=== PATIENT | female | born 1960 | race Caucasian/White ===

== ENCOUNTER 2017-03-21 14:32 | Inpatient (IN) | payer MEDICAID ==
[~2017-03-21] VITALS: Ht 160 cm; Wt 113.0 kg
--- OUTSIDE RECORDS SUMMARY | 2017-03-21 19:33 | XMS REPORT | Clinical Summary ---
Author Author Admin, MARGRET Organization [employer] Address Unknown Phone Unavailable Allergies, Adverse Reactions, Alerts Allergy Name Reaction Description Start Date Severity Status Provider VALENTIN Critical Active Rodrigo Montemayorl SPECIALTY THERAPIST CHLORHEXIDINE GLUCONATE tongue and gums swollen Critical Active Hoa Clarita RMA NORFLEX Rash Critical Active Silvestrellina Frazell SPECIALTY THERAPIST TRAZODONE HCL sees things Critical Active Dewayne PERAZA PENICILLIN rash Critical Active Dewayne PERAZA Conditions or Problems Problem Name Problem Code Onset Date Status Entry Date Provider Comment Standard Description Annotate FOOT PAIN, RIGHT 729.5 Resolved Yolande Lindsay MD PhD Pain in limb ANKLE PAIN, RIGHT 719.47 Resolved Yolande Lindsay MD PhD Pain in joint involving ankle and foot EDEMA, LIMB 782.3 Resolved Yolande Lindsay MD PhD Edema HYPERTENSION 401.1 Active Dewayne PERAZA Benign essential hypertension HYPERLIPIDEMIA 272.4 Active Yolande Lindsay MD PhD Other and unspecified hyperlipidemia ABDOMINAL PAIN 789.00 Resolved Yolande Lindsay MD PhD Abdominal pain, unspecified site PLANTAR FASCIITIS 728.71 Resolved Yolande Lindsay MD PhD Plantar fascial fibromatosis UTI 599.0 Resolved Yolande Lindsay MD PhD Urinary tract infection, site not specified OTHER SCREENING MAMMOGRAM V76.12 Inactive Yolande Lindsay MD PhD Other screening mammogram KNEE PAIN 719.46 Resolved Yolande Lindsay MD PhD Pain in joint involving lower leg ALLERGIC REACTION, ACUTE 995.3 Resolved Alexis Ordaz MD Allergy, unspecified, not elsewhere classified GERD 530.81 Resolved Todd Callaway MD Esophageal reflux BACK PAIN 724.5 Resolved Yolande Lindsay MD PhD Backache, unspecified AFTERCARE FOLLOW SURGERY MUSCULOSKEL SYSTEM NEC V58.78 Resolved Todd Callaway MD Aftercare following surgery of the musculoskeletal system, NEC FREQUENCY, URINARY 788.41 Resolved Yolande Lindsay MD PhD Urinary frequency ALLERGIC RHINITIS 477.9 Active Rodrigo Sarah APRN Allergic rhinitis, cause unspecified AFTERCARE FLW SURG TEETH ORL CAV&DIGESTV SYS NEC V58.75 Resolved Yolande Lindsay MD PhD Aftercare following surgery of the teeth, oral cavity and digestive system, NEC LONG-TERM (CURRENT) USE OF OTHER MEDICATIONS V58.69 Resolved Yolande Lindsay MD PhD Long-term (current) use of other medications ROUTINE GYNECOLOGICAL EXAMINATION V72.31 Resolved Yolande Lindsay MD PhD Routine gynecological examination HYPOTHYROIDISM 244.9 Active Rodrigo Sarah APRN Unspecified hypothyroidism MUSCLE PAIN 729.1 Resolved Yolande Lindsay MD PhD Myalgia and myositis, unspecified FISSURE, ANAL 565.0 Resolved Yolande Lindsay MD PhD Anal fissure CHEST PAIN, UNSPECIFIED 786.50 Resolved Yolande Lindsay MD PhD Unspecified chest pain HEADACHE 784.0 Resolved Yolande Lindsay MD PhD Headache SPONDYLOLISTHESIS 756.12 Active Yolande Lindsay MD PhD Spondylolisthesis, congenital OTHER DISORDER OF COCCYX 724.79 Inactive Yolande Lindsay MD PhD Other disorders of coccyx ABDOMINAL PAIN, EPIGASTRIC 789.06 Resolved Yolande Lindsay MD PhD Abdominal pain, epigastric DYSPHAGIA UNSPECIFIED 787.20 Resolved Yolande Lindsya MD PhD Dysphagia, unspecified ABDOMINAL PAIN, LEFT LOWER QUADRANT 789.04 Resolved Yolande Lindsay MD PhD Abdominal pain, left lower quadrant HEMATOCHEZIA 578.1 Resolved Yolande Lindsay MD PhD Blood in stool HEMORRHOIDS, INTERNAL, WITH BLEEDING 455.2 Resolved Yolande Lindsay MD PhD Internal hemorrhoids with other complication POISON KUNAL DERMATITIS 692.6 Resolved Yolande Lindsay MD PhD Contact dermatitis and other eczema due to plants [except food] ANGIOEDEMA 995.1 Resolved Yolande Lindsay MD PhD Angioneurotic edema, not elsewhere classified GERD 530.81 Resolved Yolande Lindsay MD PhD Esophageal reflux RECTAL BLEEDING 569.3 Resolved Yolande Lindsay MD PhD Hemorrhage of rectum and anus INGROWN TOENAIL 703.0 Resolved Yolande Lindsay MD PhD Ingrowing nail INGROWN TOENAIL 703.0 Resolved Yolande Lindsay MD PhD Ingrowing nail Hip pain, left 719.45 Resolved Yolande Lindsay MD PhD Pain in joint involving pelvic region and thigh Sinusitis, maxillary, acute 461.0 Resolved Yolande Lindsay MD PhD Acute maxillary sinusitis Sinusitis 461.9 Resolved Yolande Lindsay MD PhD Acute sinusitis, unspecified Pallor 782.61 Resolved Yolande Lindsay MD PhD Pallor Flank pain, left 789.09 Resolved Yolande Lindsay MD PhD Abdominal pain, other specified site; multiple sites Bladder Prolapse 596.9 Active Jared Og MD Unspecified disorder of bladder STRESS INCONTINENCE 788.39 Active Jared Og MD Other urinary incontinence Rectocele 618.04 Active Jared Og MD Rectocele Hematuria 599.70 Resolved Yolande Lindsay MD PhD Hematuria, unspecified Health maintenance exam V70.0 Active Yolande Lindsay MD PhD Routine general medical examination at a health care facility Ankle pain, right 719.47 Resolved Yolande Lindsay MD PhD Pain in joint involving ankle and foot Foot pain, right 729.5 Resolved Yolande Lindsay MD PhD Pain in limb Tick bite 989.5 Resolved Yolande Lindsay MD PhD Toxic effect of venom URI 465.9 Resolved Yolande Lindsay MD PhD Acute upper respiratory infections of unspecified site Mycoplasma pneumonia 483.0 Resolved Yolande Lindsay MD PhD Pneumonia due to Mycoplasma pneumoniae Sexual dysfunction 302.70 Active Jared Og MD Psychosexual dysfunction, unspecified Muscle spasm, back 724.8 Resolved Yolande Lindsay MD PhD Other symptoms referable to back Obesity 278.00 Active Yolande Lindsay MD PhD Obesity, unspecified Sinusitis, acute 461.9 Resolved Yolande Lindsay MD PhD Acute sinusitis, unspecified Asthma 493.90 Active Erum Elder Asthma, unspecified Flank pain 789.09 Resolved Yolande Lindsay MD PhD Abdominal pain, other specified site; multiple sites Sinusitis 461.9 Resolved Yolande Lindsay MD PhD Acute sinusitis, unspecified Abdominal pain, LLQ 789.04 Resolved Yolande Lindsay MD PhD Abdominal pain, left lower quadrant Accidental fall E888.9 Resolved Yolande Lindsay MD PhD Unspecified fall Knee sprain, left 844.9 Resolved Yolande Lindsay MD PhD Sprain of unspecified site of knee and leg Ankle sprain, left 845.00 Resolved Yolande Lindsay MD PhD Unspecified site of ankle sprain Hip pain, left 719.45 Resolved Yolande Lindsay MD PhD Pain in joint involving pelvic region and thigh Palpitations 785.1 Active Yolande Lindsay MD PhD Palpitations 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 Erum Sykes 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 Myocardial infarction, hx of 412 Active Hoa Otto [facility] Old myocardial infarction Pelvic pain 789.09 Active Yolande Lindsay MD PhD Abdominal pain, other specified site; multiple sites Edema 782.3 Active Yolande Lindsay MD PhD Edema Rash 782.1 Active Yolande Lindsay MD PhD Rash and other nonspecific skin eruption Back pain, lumbar 724.2 Active Gab Padron MD Lumbago Cough 786.2 Active Jillina Tyrel SPECIALTY THERAPIST Cough 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 Jillina Frazellilian SPECIALTY THERAPIST 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 Anemia 285.9 Active Gab Padron MD Anemia, unspecified Conjunctivitis 372.30 Active Jillina Tyrel SPECIALTY THERAPIST Conjunctivitis, unspecified Sinusitis 473.9 Active Jillina Frazell SPECIALTY THERAPIST Unspecified sinusitis (chronic) Nonspecific syndrome suggestive of viral illness 079.99 Active Rodrigo Sarah SPECIALTY THERAPIST Unspecified viral infection Laryngitis 464.00 Active Jillina Tyrel SPECIALTY THERAPIST Acute laryngitis without mention of obstruction Abdominal pain 789.00 Active Gab Padron MD Abdominal pain, unspecified site Chest discomfort 786.59 Active Gab Padron MD Other chest pain Cellulitis, leg, right 682.6 Active Gab Padron MD Cellulitis and abscess of leg, except foot Insect bite, infected 919.5 Active Gab Padron MD Insect bite, nonvenomous, of other, multiple, and unspecified sites, infected Renal insufficiency, mild 585.2 Active Gab Padron MD Chronic kidney disease, Stage II (mild) 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 Gab Padron MD Other and unspecified factitious illness Flank pain, left 789.09 Active Rodrigo Sarah APRN Abdominal pain, other specified site; multiple sites Abdominal pain, generalized 789.07 Active Rodrigo aSrah APRN Abdominal pain, generalized Back pain, thoracic region, left 724.1 Active Silvestrellina Siml DAIN Pain in thoracic spine Abdominal pain, left lower quadrant 789.04 Active Gab Padron MD Abdominal pain, left lower quadrant Slowing of urinary stream 788.62 Active Gab Padron MD Slowing of urinary stream Interstitial cystitis 595.1 Active Gab Padron MD Chronic interstitial cystitis ANKLE PAIN, RIGHT ICD-719.47 Inactive Yolande Lindsay MD PhD EDEMA, LIMB ICD-782.3 Inactive Yolande Lindsay MD PhD ABDOMINAL PAIN ICD-789.00 Inactive Yolande Lindsay MD PhD PLANTAR FASCIITIS ICD-728.71 Inactive Yolande Lindsay MD PhD UTI ICD-599.0 Inactive Yolande Lindsay MD PhD OTHER SCREENING MAMMOGRAM ICD-V76.12 Inactive Yolande Lindsay MD PhD FOOT PAIN, RIGHT ICD-729.5 Inactive Yolande Lindsay MD PhD ALLERGIC REACTION, ACUTE ICD-995.3 Inactive Alexis Ordaz MD BACK PAIN ICD-724.5 Inactive Yolande Lindsay MD PhD AFTERCARE FOLLOW SURGERY MUSCULOSKEL SYSTEM NEC ICD-V58.78 02/06 Inactive Todd Callaway MD FREQUENCY, URINARY ICD-788.41 Inactive Yolande Lindsay MD PhD AFTERCARE FLW SURG TEETH ORL CAV&DIGESTV SYS NEC ICD-V58.75 04/25 Inactive Yolande Lindsay MD PhD KNEE PAIN ICD-719.46 Inactive Yolande Lindsay MD PhD ROUTINE GYNECOLOGICAL EXAMINATION ICD-V72.31 Inactive Yolande Lindsay MD PhD MUSCLE PAIN ICD-729.1 Inactive Yolande Lindsay MD PhD FISSURE, ANAL ICD-565.0 Inactive Yolande Lindsay MD PhD CHEST PAIN, UNSPECIFIED ICD-786.50 Inactive Yolande Lindsay MD PhD HEADACHE ICD-784.0 Inactive Yolande Lindsay MD PhD GERD ICD-530.81 Inactive Todd Callaway MD LONG-TERM (CURRENT) USE OF OTHER MEDICATIONS ICD-V58.69 Inactive Yolande Lindsay MD PhD OTHER DISORDER OF COCCYX ICD-724.79 Inactive Yolande Lindsay MD PhD ABDOMINAL PAIN, LEFT LOWER QUADRANT ICD-789.04 Inactive Yolande Lindsay MD PhD HEMATOCHEZIA ICD-578.1 Inactive Yolande Lindsay MD PhD HEMORRHOIDS, INTERNAL, WITH BLEEDING ICD-455.2 Inactive Yolande Lindsay MD PhD POISON KUNAL DERMATITIS ICD-692.6 Inactive Yolande Lindsay MD PhD ANGIOEDEMA ICD-995.1 Inactive Yolande Lindsay MD PhD GERD ICD-530.81 Inactive Yolande Lindsay MD PhD 07/16 RECTAL BLEEDING ICD-569.3 Inactive Yolande Lindsay MD PhD INGROWN TOENAIL ICD-703.0 Inactive Yolande Lindsay MD PhD INGROWN TOENAIL ICD-703.0 Inactive Yolande Lindsay MD PhD Hip pain, left ICD-719.45 Inactive Yolande Lindsay MD PhD Sinusitis, maxillary, acute ICD-461.0 Inactive Yolande Lindsay MD PhD Sinusitis ICD-461.9 Inactive Yolande Lindsay MD PhD Pallor ICD-782.61 Inactive Yolande Lindsay MD PhD 2013 Flank pain, left ICD-789.09 Inactive Yolande Lindsay MD PhD ABDOMINAL PAIN, EPIGASTRIC ICD-789.06 Inactive Yoalnde Lindsay MD PhD DYSPHAGIA UNSPECIFIED ICD-787.20 Inactive Yolande Lindsay MD PhD Foot pain, right ICD-729.5 Inactive Yolande Lindsay MD PhD Hematuria ICD-599.70 Inactive Yolande Lindsay MD PhD Ankle pain, right ICD-719.47 Inactive Yolande Lindsay MD PhD Tick bite ICD-989.5 Inactive Yolande Lindsay MD PhD 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 Inactive Yolande Lindsay MD PhD URI ICD-465.9 Inactive Yolande Lindsay MD PhD Flank pain ICD-789.09 Inactive Yolande Lindsay MD PhD Sinusitis ICD-461.9 Inactive Yolande Lindsay MD PhD Abdominal pain, LLQ ICD-789.04 Inactive Yolande Lindsay MD PhD Accidental fall ICD-E888.9 Inactive Yolande Lindsay MD PhD Knee sprain, left ICD-844.9 Inactive Yolande Lindsay MD PhD Ankle sprain, left ICD-845.00 Inactive Yolande Lindsay MD PhD Hip pain, left ICD-719.45 Inactive Yolande Lindsay MD PhD Muscle spasm, back ICD-724.8 Inactive Yolande Lindsay MD PhD Sinusitis, acute ICD-461.9 Inactive Yolande Lindsay MD PhD Medication List Medication Instructions Start Date Stop Date Generic Name NDC Status Provider Patient Instruction ZOFRAN ODT 4 MG TBDP 1 po q6hr PRN Nausea ONDANSETRON 62422877664 Active Jillina Frahossein ZAPATAN Active IBUPROFEN 600 MG TAB 1 tablet by mouth every 6 hours for 7 days, then 1 tablet every 6 hours as needed. Take with food IBUPROFEN 70229940336 Active Jillina Fracharlottel SPECIALTY THERAPIST Active BACTRIM DS 800-160 MG TAB 1 tab by mouth twice daily TRIMETHOPRIM-SULFAMETHOXAZOLE 06924719215 No Longer Active Gab Padron MD Active ADVAIR DISKUS 250-50 MCG/DOSE AEPB 1 puff BID FLUTICASONE- SALMETEROL 45708566863 Active Silvestrellina Tyrel ZAPATAN Active LEVOTHYROXINE SODIUM 75 MCG TABS Take 1 tab daily LEVOTHYROXINE SODIUM 14259406645 No Longer Active Mariana FLEMING Active SYNTHROID 88 MCG ORAL TABS Take one by mouth daily LEVOTHYROXINE SODIUM 20173638041 Active Mariana HICKEYA Active CHERATUSSIN AC 100-10 MG/5ML SYRP 1 tsp by mouth every 4 hours as needed for cough GUAIFENESIN-CODEINE 51639363244 No Longer Active Gab Padron MD Active POLYTRIM 72412-5.1 UNIT/ML-% SOLN 1 gtt to affected eye q3h x 7 days POLYMYXIN B-TRIMETHOPRIM 86189034099 No Longer Active Gab Padron MD Active FLUTICASONE PROPIONATE 50 MCG/ACT SUSP 1 to 2 sprays each nostril daily 04/21 FLUTICASONE PROPIONATE 82187196460 No Longer Active Gab Padron MD Active TRILEPTAL 600 MG TABS Take one 1 tablet in Am and 1 tablet at night OXCARBAZEPINE 64133217684 Active Gab Padron MD Active CEFDINIR 300 MG CAPS 1 po BID x 10 days CEFDINIR 34516922824 No Longer Active Rowenaina Tyrel ZAPATAN Active CEFTIN 500 MG TAB 1 twice a day CEFUROXIME AXETIL 15669366449 No Longer Active Gab Padron MD Active AZITHROMYCIN 250 MG TABS 2 po qd x 1 day, then 1 po qd x 4 days AZITHROMYCIN 35386824926 No Longer Active Rodrigo Sarah APRN Active CLARITIN 10 MG TAB 1 tablet by mouth daily as needed for allergies LORATADINE 79705824223 Active Jillina Frazell SPECIALTY THERAPIST Active OXYCODONE HCL 5 MG ORAL CAPS 1 TAB PO Q HS OXYCODONE HCL 46011355207 No Longer Active Rodrigo Sarah APRN Active NIASPAN 500 MG ORAL CR-TABS 1 pill nightly x 1 week, then 2 pills nightly x 1 week, then 3 pills nightly x 1 week, then 4 pills nightly NIACIN (ANTIHYPERLIPIDEMIC) 89383875763 No Longer Active Silvestrellina Fracharlottel SPECIALTY THERAPIST Active NIACIN 500 MG TABS 1 pill by mouth nightly x 1 week, then 2 pills x 1 week, then 3 pills x 1 week, then 4 pills nightly - take after evening meal, with applesauce or an apple NIACIN 94051725864 No Longer Active Yolande Lindsay MD PhD Active FISH OIL 1000 MG CAPS 3 pills daily OMEGA-3 FATTY ACIDS 87712421785 Active Yolande Lindsay MD PhD Active TRIAMCINOLONE ACETONIDE 0.1 % CREA apply bid sparingly to rash TRIAMCINOLONE ACETONIDE 77535627434 Active Yolande Lindsay MD PhD Active FUROSEMIDE 20 MG TAB 1 tablet by mouth daily FUROSEMIDE 63261754727 Active Tisha Lambert SPECIALTY THERAPIST Active LISINOPRIL 20 MG ORAL TABS 1 tab by mouth daily LISINOPRIL 80723163609 Active Gab Padron MD Active FUROSEMIDE 20 MG TABS 1 pill by mouth daily, for edema FUROSEMIDE 60634813265 No Longer Active Yolande Lindsay MD PhD Active ATORVASTATIN CALCIUM 10 MG TABS 1 pill by mouth daily, for cholesterol 09/06 ATORVASTATIN CALCIUM 33449743203 Active Gab Padron MD Active CALCIUM 600+D PLUS MINERALS 600-400 MG-UNIT ORAL CHEW 1 tab by mouth daily CALCIUM CARBONATE-VIT D-MIN 86923293677 No Longer Active Yolande Lindsay MD PhD Active CYCLOBENZAPRINE HCL 10 MG TABS 1 tablet by mouth three times daily as needed for muscle spasm/pain CYCLOBENZAPRINE HCL 96138284813 Active Yolande Lindsay MD PhD Active ONDANSETRON 4 MG TBDP 1 q4h PRN nausea ONDANSETRON 13791300557 Active Yolande Lindsay MD PhD Active ADULT ASPIRIN EC LOW STRENGTH 81 MG TBEC Take 1 tablet by mouth daily 2014 ASPIRIN 72377456729 No Longer Active Yoalnde Lindsay MD PhD Active ZOFRAN ODT 4 MG TBDP 1 pill dissolved by mouth every 4 hours if needed for nausea ONDANSETRON 99846302932 No Longer Active Yolande Lindsay MD PhD Active CEFTIN 500 MG TAB 1 twice a day CEFUROXIME AXETIL 11042191283 No Longer Active Yolande Lindsay MD PhD Active ALBUTEROL SULFATE 0.083 % NEBU SOLN one vial per nebulizer every 4-6 hours as needed ALBUTEROL SULFATE 07624782334 No Longer Active Alexis Ordaz MD Active DOXYCYCLINE HYCLATE 100 MG CAP 1 cap by mouth twice daily DOXYCYCLINE HYCLATE 68199062144 No Longer Active Yolande Lindsay MD PhD Active CYCLOBENZAPRINE HCL 10 MG TABS 1/2 - 1 tab by mouth three times daily if needed for spasms/pain CYCLOBENZAPRINE HCL 97425876040 No Longer Active Yolande Lindsay MD PhD Active AZITHROMYCIN 250 MG TABS 2 pills on day 1, then 1 pill daily x 4 days AZITHROMYCIN 28846594319 No Longer Active Yolande Lindsay MD PhD Active XOPENEX 1.25 MG/3ML NEBU 1 neb every 4 hours if needed for cough/congestion LEVALBUTEROL HCL 02368682324 No Longer Active Yolande Lindsay MD PhD Active DOXYCYCLINE HYCLATE 100 MG TAB 1 tab twice a day for 14 days 2013 DOXYCYCLINE HYCLATE 17418497086 No Longer Active Yolande Lindsay MD PhD Active PREVACID 30 MG CPDR Take 1 tablet by mouth daily-PRN LANSOPRAZOLE 88308674056 No Longer Active Yolande Lindsay MD PhD Active PA VITAMIN D-3 2000 UNIT CAPS 1 CAP PO DAILY CHOLECALCIFEROL 82619460148 No Longer Active Yolande Lindsay MD PhD Active CEFDINIR 300 MG CAPS by mouth twice a day CEFDINIR 72852059963 No Longer Active Gab Padron MD Active TOPAMAX 50 MG TABS 1 PO twice daily TOPIRAMATE 94639801190 Active Yolande Lindsay MD PhD Active AZITHROMYCIN 250 MG TABS 2 po qd x 1 day, then 1 po qd x 4 days AZITHROMYCIN 92350887628 No Longer Active Yolande Lindsay MD PhD Active DICLOFENAC SODIUM 75 MG TBEC 1 tablet by q 12 hours PRN headaches DICLOFENAC SODIUM 83073850346 No Longer Active Yolande Lindsay MD PhD Active FLONASE 50 MCG/ACT SUSP 1 spray each nostril am and hs FLUTICASONE PROPIONATE 87508254549 No Longer Active Todd Callaway MD Active ANUSOL-HC 25 MG SUPPOSITORY 1 rectally twice a day as needed for hemorrhoids HYDROCORTISONE JAYDEN (RECTAL) 70331500708 No Longer Active Yolande Lindsay MD PhD Active ANUSOL-HC 25 MG SUPPOSITORY 1 suppository rectally each evening as needed for anal fissure HYDROCORTISONE JAYDEN (RECTAL) 10883817951 No Longer Active LONNIE Iglesias Active VALIUM 5 MG TAB 1 po 30 minutes prior to your MRI DIAZEPAM 04454845284 No Longer Active LONNIE Iglesias Active METHOCARBAMOL 750 MG TABS 1 PO QID PRN METHOCARBAMOL 55085781321 No Longer Active Daphne Wetzel APRN Active NITROSTAT 0.4 MG SUBL as directed NITROGLYCERIN 29414412785 No Longer Active Rodrigo Sarah APRN Active ROBAXIN-750 750 MG TABS 2 four times a day for 3 days as needed for muscle spasm, then 1 four times a day as needed METHOCARBAMOL 60965185737 No Longer Active Rodrigo Sarah APRN Active HYDROCODONE-ACETAMINOPHEN 5-325 MG TABS 1 q 4-6 hrs prn HYDROCODONE-ACETAMINOPHEN 99141089652 No Longer Active Rodrigo Sarah APRN Active VERAPAMIL HCL CR 180 MG CR-TABS TAKE 1 TAB DAILY VERAPAMIL HCL 92195480482 No Longer Active Yolande Lindsay MD PhD Active BACTRIM DS 800-160 MG TAB 1 tab by mouth twice daily TRIMETHOPRIM-SULFAMETHOXAZOLE 73451845212 No Longer Active Yolande Lindsay MD PhD Active NEXIUM 40 MG PACK 1 by mouth daily ESOMEPRAZOLE MAGNESIUM 29714692124 No Longer Active Des Hines MD Active EPIPEN 2-CHARLETTE 0.3 MG/0.3ML OMARI as need for allergic reaction EPINEPHRINE 85853605833 Active Yolande Lindsay MD PhD Active NEXIUM 40 MG CPDR 1 PO Q D DAY ESOMEPRAZOLE MAGNESIUM 08275596610 No Longer Active Sadia Perry RN Active NEXIUM 40 MG PACK 1 by mouth daily NEXIUM 40 MG PACK ESOMEPRAZOLE MAGNESIUM Inactive VERAPAMIL HCL CR 180 MG CR-TABS TAKE 1 TAB DAILY VERAPAMIL HCL CR 180 MG CR-TABS VERAPAMIL HCL Inactive HYDROCODONE-ACETAMINOPHEN 5-325 MG TABS 1 q 4-6 hrs prn HYDROCODONE-ACETAMINOPHEN 5-325 MG TABS 423040 HYDROCODONE-ACETAMINOPHEN Inactive ROBAXIN-750 750 MG TABS 2 four times a day for 3 days as needed for muscle spasm, then 1 four times a day as needed ROBAXIN-750 750 MG TABS 485724 METHOCARBAMOL Inactive NITROSTAT 0.4 MG SUBL as directed NITROSTAT 0.4 MG SUBL NITROGLYCERIN Inactive METHOCARBAMOL 750 MG TABS 1 PO QID PRN METHOCARBAMOL 750 MG TABS 023773 METHOCARBAMOL Inactive VALIUM 5 MG TAB 1 po 30 minutes prior to your MRI VALIUM 5 MG TAB 885698 DIAZEPAM Inactive ANUSOL-HC 25 MG SUPPOSITORY 1 suppository rectally each evening as needed for anal fissure ANUSOL-HC 25 MG SUPPOSITORY 9141543 HYDROCORTISONE JAYDEN (RECTAL) Inactive ANUSOL-HC 25 MG SUPPOSITORY 1 rectally twice a day as needed for hemorrhoids ANUSOL-HC 25 MG SUPPOSITORY 0275960 HYDROCORTISONE JAYDEN (RECTAL) Inactive FLONASE 50 MCG/ACT SUSP 1 spray each nostril am and hs FLONASE 50 MCG/ACT SUSP FLUTICASONE PROPIONATE Inactive DICLOFENAC SODIUM 75 MG TBEC 1 tablet by q 12 hours PRN headaches DICLOFENAC SODIUM 75 MG TBEC 509050 DICLOFENAC SODIUM Inactive PA VITAMIN D-3 2000 UNIT CAPS 1 CAP PO DAILY PA VITAMIN D-3 2000 UNIT CAPS CHOLECALCIFEROL Inactive PREVACID 30 MG CPDR Take 1 tablet by mouth daily-PRN PREVACID 30 MG CPDR 322164 LANSOPRAZOLE Inactive DOXYCYCLINE HYCLATE 100 MG TAB 1 tab twice a day for 14 days 2013 DOXYCYCLINE HYCLATE 100 MG TAB 5646711 DOXYCYCLINE HYCLATE Inactive XOPENEX 1.25 MG/3ML NEBU 1 neb every 4 hours if needed for cough/congestion XOPENEX 1.25 MG/3ML NEBU 947320 LEVALBUTEROL HCL Inactive CYCLOBENZAPRINE HCL 10 MG TABS 1/2 - 1 tab by mouth three times daily if needed for spasms/pain CYCLOBENZAPRINE HCL 10 MG TABS 196920 CYCLOBENZAPRINE HCL Inactive ALBUTEROL SULFATE 0.083 % NEBU SOLN one vial per nebulizer every 4-6 hours as needed ALBUTEROL SULFATE 0.083 % NEBU SOLN 596423 ALBUTEROL SULFATE Inactive CEFTIN 500 MG TAB 1 twice a day CEFTIN 500 MG TAB 599623 CEFUROXIME AXETIL Inactive ZOFRAN ODT 4 MG TBDP 1 pill dissolved by mouth every 4 hours if needed for nausea ZOFRAN ODT 4 MG TBDP 065897 ONDANSETRON Inactive ADULT ASPIRIN EC LOW STRENGTH 81 MG TBEC Take 1 tablet by mouth daily 2014 ADULT ASPIRIN EC LOW STRENGTH 81 MG TBEC 432755 ASPIRIN Inactive CALCIUM 600+D PLUS MINERALS 600-400 MG-UNIT ORAL CHEW 1 tab by mouth daily CALCIUM 600+D PLUS MINERALS 600-400 MG-UNIT ORAL CHEW CALCIUM CARBONATE-VIT D-MIN Inactive NIACIN 500 MG TABS 1 pill by mouth nightly x 1 week, then 2 pills x 1 week, then 3 pills x 1 week, then 4 pills nightly - take after evening meal, with applesauce or an apple NIACIN 500 MG TABS 266327 NIACIN Inactive NIASPAN 500 MG ORAL CR-TABS 1 pill nightly x 1 week, then 2 pills nightly x 1 week, then 3 pills nightly x 1 week, then 4 pills nightly NIASPAN 500 MG ORAL CR-TABS NIACIN (ANTIHYPERLIPIDEMIC) Inactive OXYCODONE HCL 5 MG ORAL CAPS 1 TAB PO Q HS OXYCODONE HCL 5 MG ORAL CAPS 7027846 OXYCODONE HCL Inactive FLUTICASONE PROPIONATE 50 MCG/ACT SUSP 1 to 2 sprays each nostril daily 04/21 FLUTICASONE PROPIONATE 50 MCG/ACT SUSP 296760 FLUTICASONE PROPIONATE Inactive POLYTRIM 84070-3.1 UNIT/ML-% SOLN 1 gtt to affected eye q3h x 7 days POLYTRIM 46509-9.1 UNIT/ML-% SOLN 182959 POLYMYXIN B- TRIMETHOPRIM Inactive CHERATUSSIN AC 100-10 MG/5ML SYRP 1 tsp by mouth every 4 hours as needed for cough CHERATUSSIN AC 100-10 MG/5ML SYRP 228844 GUAIFENESIN-CODEINE Inactive LEVOTHYROXINE SODIUM 75 MCG TABS Take 1 tab daily LEVOTHYROXINE SODIUM 75 MCG TABS 810146 LEVOTHYROXINE SODIUM Inactive BACTRIM DS 800-160 MG TAB 1 tab by mouth twice daily BACTRIM DS 800-160 MG TAB 454379 TRIMETHOPRIM-SULFAMETHOXAZOLE Inactive AZITHROMYCIN 250 MG TABS 2 po qd x 1 day, then 1 po qd x 4 days AZITHROMYCIN 250 MG TABS 0215823 AZITHROMYCIN Inactive CEFDINIR 300 MG CAPS by mouth twice a day CEFDINIR 300 MG CAPS 520925 CEFDINIR Inactive AZITHROMYCIN 250 MG TABS 2 pills on day 1, then 1 pill daily x 4 days AZITHROMYCIN 250 MG TABS 0648749 AZITHROMYCIN Inactive DOXYCYCLINE HYCLATE 100 MG CAP 1 cap by mouth twice daily DOXYCYCLINE HYCLATE 100 MG CAP 6294638 DOXYCYCLINE HYCLATE Inactive FUROSEMIDE 20 MG TABS 1 pill by mouth daily, for edema FUROSEMIDE 20 MG TABS 485514 FUROSEMIDE Inactive AZITHROMYCIN 250 MG TABS 2 po qd x 1 day, then 1 po qd x 4 days AZITHROMYCIN 250 MG TABS 4642446 AZITHROMYCIN Inactive CEFTIN 500 MG TAB 1 twice a day CEFTIN 500 MG TAB 060280 CEFUROXIME AXETIL Inactive CEFDINIR 300 MG CAPS 1 po BID x 10 days CEFDINIR 300 MG CAPS 813011 CEFDINIR Inactive BACTRIM DS 800-160 MG TAB 1 tab by mouth twice daily BACTRIM DS 800-160 MG TAB 664559 TRIMETHOPRIM-SULFAMETHOXAZOLE Inactive Immunizations Vaccine Administration Date Value Standard Description Seasonal influenza vaccine, injectable, containing preservative, for > 3 years old (Afluria, FluLaval, Fluzone, Fluvirin, Fluarix, Agriflu(>=18 yo)) Fluzone (>3 yrs.) [[id number]] Influenza, seasonal, injectable influenza immunization (Flu Vax) has been administered Influenza - Unspecified Formulation [CVX88] influenza virus vaccine, unspecified formulation Seasonal influenza vaccine, injectable, containing preservative, for > 3 years old (Afluria, FluLaval, Fluzone, Fluvirin, Fluarix, Agriflu(>=18 yo)) Fluzone (>3 yrs.) [[id number]] Influenza, seasonal, injectable pneumococcal immunization administered Pneumovax 23 [CVX33] pneumococcal polysaccharide vaccine, 23 valent dT (Diphtheria and Tetanus) booster given given Td(adult) unspecified formulation Boostrix (Tetanus toxoid, reduced diphtheria toxoid and acellular pertussis vaccine, adsorbed), booster Boostrix [[id number]] tetanus toxoid, reduced diphtheria toxoid, and acellular pertussis vaccine, adsorbed Vital Signs Date Name Value Unit Range Description blood pressure, diastolic - 8462-4 75 mm[Hg] BP weldon blood pressure, systolic - 8480-6 130 mm[Hg] BP sys pulse rate E&M - 8867-4 72 /min Heart rate temperature E&M 98.5 [degF] Body temperature weight E&M - 3141-9 243 [lb_av] Weight Measured blood pressure, diastolic - 8462-4 71 mm[Hg] BP weldon blood pressure, systolic - 8480-6 136 mm[Hg] BP sys pulse rate E&M - 8867-4 61 /min Heart rate temperature E&M 98.2 [degF] Body temperature weight E&M - 3141-9 242 [lb_av] Weight Measured blood pressure, diastolic - 8462-4 75 mm[Hg] BP weldon blood pressure, systolic - 8480-6 121 mm[Hg] BP sys pulse rate E&M - 8867-4 77 /min Heart rate temperature E&M 98.8 [degF] Body temperature weight E&M - 3141-9 244 [lb_av] Weight Measured blood pressure, diastolic - 8462-4 78 mm[Hg] BP weldon blood pressure, systolic - 8480-6 154 mm[Hg] BP sys pulse rate E&M - 8867-4 65 /min Heart rate temperature E&M 98.8 [degF] Body temperature weight E&M - 3141-9 243.5 [lb_av] Weight Measured blood pressure, diastolic - 8462-4 59 mm[Hg] BP weldon blood pressure, systolic - 8480-6 128 mm[Hg] BP sys pulse rate E&M - 8867-4 67 /min Heart rate temperature E&M 97.3 [degF] Body temperature weight E&M - 3141-9 238.5 [lb_av] Weight Measured blood pressure, diastolic - 8462-4 81 mm[Hg] BP weldon blood pressure, systolic - 8480-6 125 mm[Hg] BP sys pulse rate E&M - 8867-4 68 /min Heart rate temperature E&M 99 [degF] Body temperature weight E&M - 3141-9 235.5 [lb_av] Weight Measured blood pressure, diastolic - 8462-4 82 mm[Hg] BP weldon blood pressure, systolic - 8480-6 126 mm[Hg] BP sys pulse rate E&M - 8867-4 77 /min Heart rate temperature E&M 98.1 [degF] Body temperature weight E&M - 3141-9 238 [lb_av] Weight Measured blood pressure, diastolic - 8462-4 50 mm[Hg] BP weldon blood pressure, systolic - 8480-6 113 mm[Hg] BP sys pulse rate E&M - 8867-4 68 /min Heart rate temperature E&M 97.3 [degF] Body temperature weight E&M - 3141-9 233 [lb_av] Weight Measured blood pressure, diastolic - 8462-4 91 mm[Hg] BP weldon blood pressure, systolic - 8480-6 124 mm[Hg] BP sys pulse rate E&M - 8867-4 66 /min Heart rate temperature E&M 97.4 [degF] Body temperature weight E&M - 3141-9 237 [lb_av] Weight Measured blood pressure, diastolic - 8462-4 69 mm[Hg] BP weldon blood pressure, systolic - 8480-6 110 mm[Hg] BP sys pulse rate E&M - 8867-4 57 /min Heart rate temperature E&M 98.6 [degF] Body temperature weight E&M - 3141-9 236.12 [lb_av] Weight Measured blood pressure, diastolic - 8462-4 68 mm[Hg] BP weldon blood pressure, systolic - 8480-6 15 mm[Hg] BP sys pulse rate E&M - 8867-4 62 /min Heart rate temperature E&M 98.2 [degF] Body temperature weight E&M - 3141-9 233.8 [lb_av] Weight Measured Diagnostic Results Date Name Value Unit Range Description Lab Report: Basic Metabolic Panel - Chemistry sodium, serum 142 mmol/L 313-267 1227/06/30 potassium, serum 4.4 mmol/L 3.5-5.2 chloride, serum 108 mmol/L 98-107 carbon dioxide, venous blood 25.1 mmol/L 21.0-32.0 blood glucose 82 mg/dL 65-110 calcium, serum 9.1 mg/dL 8.5-10.1 urea nitrogen, blood 18 mg/dL 7-18 creatinine, serum 1.31 mg/dL 0.55-1.30 Lab Report: [facility] Advanced Lipid and Inlammation Panel /80647 - Chemistry cholesterol, serum 148 mg/dL 092-217 3949/09/02 HDL cholesterol, serum 55 mg/dL > OR=46 triglyceride, serum, fasting 67 mg/dL LDL cholesterol, serum 80 mg/dL cholesterol/HDL ratio, serum 2.7 calc < OR=5.0 Lab Report: CBC - Hematology mean corpuscular hemoglobin, RBC 26.5 pg 27.0-31.2 mean corpuscular hemoglobin concentration, RBC 31.6 G/DL % 31.8- 35.4 red blood cell distribution width 15.7 % 11.6-14.8 platelet count 224 10^3/MM^3 10*3/mm3 419-938 1662/12/30 leukocyte count, blood 5.3 10^3/MM^3 10*3/mm3 4.6-10.2 erythrocyte (RBC) count 4.03 10^6/MM^3 10*6/mm3 4.04-5.48 hemoglobin, blood 10.7 g/dL 12.0-16.0 hematocrit, blood 33.7 % 36.0-46.0 mean corpuscular volume, RBC 84 fL 80-97 Lab Report: CBC W/DIFF, RapidStrep Rflx/Cx, TIERA INFLUENZA A/B - Hematology leukocyte count, blood 5.3 10^3/MM^3 10*3/mm3 4.6-10.2 neutrophils as percent of blood leukocytes 64.0 % 42.2-75.2 monocytes as percent of blood leukocytes 11.3 % 1.7-9.3 lymphocytes as percent of blood leukocytes 22.7 % 20.5-51.1 erythrocyte (RBC) count 3.94 10^6/MM^3 10*6/mm3 4.04-5.48 hemoglobin, blood 10.9 g/dL 12.0-16.0 hematocrit, blood 33.7 % 36.0-46.0 mean corpuscular volume, RBC 85 fL 80-97 mean corpuscular hemoglobin, RBC 27.7 pg 27.0-31.2 mean corpuscular hemoglobin concentration, RBC 32.4 G/DL % 31.8- 35.4 red blood cell distribution width 20.2 % 11.6-14.8 platelet count 179 10^3/MM^3 10*3/mm3 142-424 Lab Report: CBC W/DIFF, RapidStrep Rflx/Cx, TIERA INFLUENZA A/B - Lab Microbial identification kit, rapid strep method Negative-Throat Culture to Follow Negative Lab Report: CBC W/DIFF, RapidStrep Rflx/Cx, TIERA INFLUENZA A/B - Toxicology rapid flu test Negative Negative;Positive Lab Report: CBC, Comp. Metabolic Panel, Thyroid Stimulating Hormone (L) - Chemistry sodium, serum 145 mmol/L 223-252 3729/09/02 potassium, serum 4.6 mmol/L 3.5-5.2 chloride, serum 113 mmol/L 98-107 carbon dioxide, venous blood 23.7 mmol/L 21.0-32.0 blood glucose 94 mg/dL 65-110 urea nitrogen, blood 21 mg/dL 7-18 creatinine, serum 1.20 mg/dL 0.60-1.30 alanine aminotransferase (SGPT), serum 28 U/L 12-78 aspartate aminotransferase (SGOT), serum 15 U/L 15-37 calcium, serum 8.1 mg/dL 8.5-10.1 bilirubin, serum, total 0.40 mg/dL 0.00-1.00 TSH 0.57 m[iU]/mL 0.36-3.74 Lab Report: CBC, Comp. Metabolic Panel, Thyroid Stimulating Hormone (L) - Hematology mean corpuscular volume, RBC 91 fL 80-97 mean corpuscular hemoglobin, RBC 30.3 pg 27.0-31.2 mean corpuscular hemoglobin concentration, RBC 33.1 G/DL % 31.8- 35.4 red blood cell distribution width 15.4 % 11.6-14.8 platelet count 166 10^3/MM^3 10*3/mm3 703-175 4743/09/02 hematocrit, blood 35.2 % 36.0-46.0 hemoglobin, blood 11.6 g/dL 12.0-16.0 erythrocyte (RBC) count 3.84 10^6/MM^3 10*6/mm3 4.04-5.48 leukocyte count, blood 4.7 10^3/MM^3 10*3/mm3 4.6-10.2 Lab Report: Comp. Metabolic Panel, Erythrocyte Sed Rate - Chemistry sodium, serum 139 mmol/L 347-658 3793/03/24 carbon dioxide, venous blood 22.4 mmol/L 21.0-32.0 potassium, serum 4.2 mmol/L 3.5-5.2 chloride, serum 105 mmol/L 98-107 blood glucose 90 mg/dL 65-110 urea nitrogen, blood 19 mg/dL 7-18 creatinine, serum 1.35 mg/dL 0.55-1.30 alanine aminotransferase (SGPT), serum 33 U/L -78 aspartate aminotransferase (SGOT), serum 23 U/L 15-37 calcium, serum 8.3 mg/dL 8.5-10.1 bilirubin, serum, total 0.20 mg/dL 0.00-1.00 Lab Report: Comp. Metabolic Panel, UADIP W/MICRO, AUTO, Thyroid Stimulat ... - Chemistry sodium, serum 143 mmol/L 572-429 6294/05/02 carbon dioxide, venous blood 25.6 mmol/L 21.0-32.0 potassium, serum 4.8 mmol/L 3.5-5.2 chloride, serum 108 mmol/L 98-107 blood glucose 70 mg/dL 65-110 urea nitrogen, blood 20 mg/dL 7-18 creatinine, serum 1.21 mg/dL 0.55-1.30 alanine aminotransferase (SGPT), serum 32 U/L -78 aspartate aminotransferase (SGOT), serum 18 U/L 15-37 calcium, serum 8.5 mg/dL 8.5-10.1 bilirubin, serum, total 0.30 mg/dL 0.00-1.00 protein, total urine random Negative mg/dL Negative RBC, urine, dipstick Negative Negative TSH 0.63 m[iU]/mL 0.36-3.74 thyroxine, serum, free 0.80 ng/dL 0.76-1.46 Lab Report: Comp. Metabolic Panel, UADIP W/MICRO, AUTO, Thyroid Stimulat ... - Urinalysis urobilinogen, urine, semiquantitative (dipstick) 0.2 Normal leukocyte esterase, urine, by dipstick Negative Negative nitrite, urine, semiquantitative Negative Negative glucose, urine, semiquantitative Negative Negative ketones, urine, by test strip Negative Negative bilirubin, urine Negative Negative urine color Yellow Colorless;Lightyellow;Straw;Yellow appearance, urine Clear Clear specific gravity, urine 1.015 1.000-1.030 pH, urine, semiquantitative 6.5 5.0-8.5 Lab Report: TIERA INFLUENZA A/B - Toxicology rapid flu test Negative Negative;Positive Lab Report: Thyroid Stimulating Hormone (L), Free Thyroxine (L) - Chemistry TSH 1.08 m[iU]/mL 0.36-3.74 thyroxine, serum, free 0.75 ng/dL 0.76-1.46 Lab Report: UADIP W/MICRO, AUTO, CBC W/DIFF, Comp. Metabolic Panel - Chemistry protein, total urine random Negative mg/dL Negative sodium, serum 142 mmol/L 527-914 8353/07/18 carbon dioxide, venous blood 27.8 mmol/L 21.0-32.0 potassium, serum 4.1 mmol/L 3.5-5.2 chloride, serum 107 mmol/L 98-107 blood glucose 91 mg/dL 65-110 urea nitrogen, blood 19 mg/dL 7-18 creatinine, serum 1.28 mg/dL 0.55-1.30 alanine aminotransferase (SGPT), serum 31 U/L 12-78 aspartate aminotransferase (SGOT), serum 25 U/L 15-37 calcium, serum 8.8 mg/dL 8.5-10.1 bilirubin, serum, total 0.30 mg/dL 0.00-1.00 RBC, urine, dipstick Negative Negative Lab Report: UADIP W/MICRO, AUTO, CBC W/DIFF, Comp. Metabolic Panel - Hematology leukocyte count, blood 4.2 10^3/MM^3 10*3/mm3 4.6-10.2 neutrophils as percent of blood leukocytes 58.9 % 42.2-75.2 monocytes as percent of blood leukocytes 6.5 % 1.7-9.3 lymphocytes as percent of blood leukocytes 33.6 % 20.5-51.1 erythrocyte (RBC) count 3.98 10^6/MM^3 10*6/mm3 4.04-5.48 hemoglobin, blood 11.7 g/dL 12.0-16.0 hematocrit, blood 35.5 % 36.0-46.0 mean corpuscular volume, RBC 89 fL 80-97 mean corpuscular hemoglobin, RBC 29.4 pg 27.0-31.2 mean corpuscular hemoglobin concentration, RBC 32.9 G/DL % 31.8- 35.4 red blood cell distribution width 15.7 % 11.6-14.8 platelet count 183 10^3/MM^3 10*3/mm3 142-424 Lab Report: UADIP W/MICRO, AUTO, CBC W/DIFF, Comp. Metabolic Panel - Urinalysis glucose, urine, semiquantitative Negative Negative ketones, urine, by test strip Negative Negative bilirubin, urine Negative Negative urine color Yellow Colorless;Lightyellow;Straw;Yellow appearance, urine Clear Clear specific gravity, urine 1.020 1.000-1.030 pH, urine, semiquantitative 6.5 5.0-8.5 urobilinogen, urine, semiquantitative (dipstick) 0.2 Normal leukocyte esterase, urine, by dipstick Negative Negative nitrite, urine, semiquantitative Negative Negative Office Visit: 3 MO F/U - Chemistry cholesterol, target level 200 mg/dL LDL target level 100 mg/dL HDL cholesterol, serum, target level 40 mg/dL triglyceride, target level 150 mg/dL cholesterol, target level 200 mg/dL LDL target level 100 mg/dL HDL cholesterol, serum, target level 40 mg/dL triglyceride, target level 150 mg/dL Office Visit: GET EST - Chemistry cholesterol, target level 200 mg/dL LDL target level 100 mg/dL HDL cholesterol, serum, target level 40 mg/dL triglyceride, target level 150 mg/dL Encounters Code Encounter Date Provider Facility CPT-36557 Level 4 Est. Patient 09:25:27 CDT Gab Padron MD [facility] CPT-79816 Level 3 Est. Patient 10:29:41 [facility] Level 4 Est. Patient 17:51:05 CDT Gab Padron MD [facility] CPT-95317 Level 3 Est. Patient 14:18:08 CDT Gab Padron MD [facility] CPT-60098 Level 4 Est. Patient 10:18:54 CDT Gba Padron MD [facility] CPT-97512 Level 3 Est. Patient 11:30:07 CDT Rodrigo Sarah [facility] CPT-80291 Level 4 Est. Patient 21:02:30 [employer] Gab Padron MD [facility] CPT-55911 Level 3 Est. Patient 11:02:19 [employer] Gab Padron MD [facility] CPT-77066 Level 4 Est. Patient 22:24:31 [employer] Gab Padron MD [facility]-98304 Level 3 Est. Patient 18:33:46 [employer] Gab Padron MD [facility]-09135 Level 3 Est. Patient 16:19:11 CDT Yolande Lindsay MD [facility]-11936 Level 3 Est. Patient 18:59:14 CDT Yolande Lindsay MD [facility]-59028 Level 4 Est. Patient 21:29:26 CDT Yolande Lindsay MD [facility]-49923 Level 3 Est. Patient 07:37:45 CDT Yolande Lindsay MD [facility]-30705 Level 3 Est. Patient 17:03:46 CDT Yolande Lindsay MD [facility]-48859 Level 4 Est. Patient 20:02:13 [employer] Yolande Lindsay MD [facility]-44600 Level 3 Est. Patient 16:02:07 [employer] Alexis Ordaz MD [facility] CPT-02744 Level 3 Est. Patient 12:41:24 [employer] Yolande Lindsay MD [facility]-09949 Level 3 Est. Patient 15:41:20 [employer] Yolande Lindsay MD [facility] CPT-02017 Level 3 Est. Patient 13:20:02 [employer] Yolande Lindsay MD [facility]-51534 Level 3 Est. Patient 15:00:38 CDT Jared Og MD [facility]-19745 Level 3 Est. Patient 10:22:32 CDT Yolande Lindsay MD [facility]-35595 Level 3 Est. Patient 17:12:58 CDT Yolande Lindsay MD [facility]-79420 Level 4 Est. Patient 13:30:58 CDT Yolande Lindsay MD [facility]-32363 Level 4 New Patient 09:02:42 CDT Jared Og MD [facility]-79557 Level 3 Est. Patient 08:19:07 CDT Yolande Lindsay MD [facility]-75695 Level 3 Est. Patient 12:00:13 [employer] Gab Padron MD [facility]-40808 Level 3 Est. Patient 16:15:23 [employer] Yolande Lindsay MD [facility]-65180 Level 2 Est. Patient 19:47:15 CDT Yolande Lindsay MD [facility]-35891 Level 3 Est. Patient 21:38:31 CDT Yolande Lindsay MD [facility]-14992 Level 3 Est. Patient 10:25:12 CDT Adiel Harry [facility] CPT-23521 Level 4 Est. Patient 10:51:58 CDT Yolande Lindsay MD [facility]-80032 Level 3 Est. Patient 14:04:55 [employer] Rodrigo Sarah [facility] [place] [facility] CPT-10176 Level 3 Est. Patient 10:46:35 [employer] Rodrigo Sarah [facility]-43263 Level 3 Est. Patient 14:24:37 [employer] Yolande Lindsay MD [facility]-05607 Level 3 Est. Patient 17:41:58 [employer] Yolande Lindsay MD [facility]-38114 Level 2 Est. Patient 22:01:41 [employer] Rodrigo Sarah [facility] [place] CPT-22941 Level 2 Est. Patient 22:01:11 [employer] Rodrigo Sarah [facility] [place] CPT-68883 Level 3 Est. Patient 10:12:29 [employer] Rodrigo Sarah [facility] [place] CPT-43495 Level 3 Est. Patient 11:05:44 CDT Alexis Ordaz MD [facility] CPT-01979 Level 3 Est. Patient 14:57:20 CDT Yolande Lindsay MD [facility]-70570 Level 3 Est. Patient 14:40:57 CDT Yolande Lindsay MD [facility]-68340 Level 3 Est. Patient 20:55:40 CDT Yolande Lindsay MD [facility]-31869 Level 3 Est. Patient 12:42:38 [employer] Yolande Lindsay MD [facility]-28810 Level 3 Est. Patient 11:54:49 [employer] Des Hines MD [facility]-18617 Level 3 Est. Patient 17:06:38 CDT Dewayne PERAZA [facility] Procedures Code Procedure Name Date Entry Date Standard Description CPT-74763 T spine AP/ Lat - XRAY USE ONLY 09:34:21 CDT CPT-20255 Chest 2V Frontal and Lat - XRAY USE ONLY 10:48:51 CDT CPT-05770 LS spine comp w obliq 13:28:00 [employer] CPT-J1040 Depo Medrol 80 mg (Methyl Prednisolone Acetate) 10:51: 28 [employer] CPT-J1100 Decadron 8mg (Dexamethasone) 10:51:28 [employer] CPT-63133 Abx/Therapy Injection 10:51:28 [employer] CPT-J1100 Decadron 8mg (Dexamethasone) 21:02:30 [employer] CPT-J1040 Depo Medrol 80 mg (Methyl Prednisolone Acetate) 21:02: 30 [employer] [id number] Event Monitor - MC Transmission 09:12:32 CDT 08/06 [id number] Event Monitor - MC review and interp 09:12:32 CDT [id number] Event Monitor - MC recording 09:12:32 CDT CPT-75789 EKG Trac and Interp 16:50:22 CDT CPT-J1030 Depo Medrol 40 mg (Methyl Prednisolone Acetate) 17:05: 54 CDT CPT-J1100 Decadron 4mg (Dexamethasone) 17:05:54 CDT CPT-44310 Abx/Therapy Injection 17:05:54 CDT CPT-J1100 Decadron 4mg (Dexamethasone) 16:55:28 CDT CPT-J1030 Depo Medrol 40 mg (Methyl Prednisolone Acetate) 16:55: 28 CDT CPT-44845 Ankle Complete - Min 3V 15:58:50 CDT CPT-51172 Knee 3V 15:58:50 CDT CPT-31043 Hip comp min 2V 15:58:50 CDT CPT-J2270 Morphine Sulfate 10 mg 14:25:44 [employer] CPT-J2550 Phenergan 12.5 mg (Promethazine) 14:25:44 [employer] CPT-07370 Abx/Therapy Injection 14:25:44 [employer] CPT-J2550 Phenergan 12.5 mg (Promethazine) 14:08:03 [employer] CPT-J2270 Morphine Sulfate 10 mg 14:08:03 [employer] CPT-85420 Bladder Scan 15:00:38 CDT CPT-TCMM Transitional Care Mgmt-Moderate 09:52:22 CDT CPT-J1030 Depo Medrol 40 mg (Methyl Prednisolone Acetate) 10:55: 18 CDT CPT-J1100 Decadron 4mg (Dexamethasone) 10:55:18 CDT CPT-37105 Abx/Therapy Injection 10:55:18 CDT CPT-J1030 Depo Medrol 40 mg (Methyl Prednisolone Acetate) 10:22: 32 CDT CPT-J1100 Decadron 4mg (Dexamethasone) 10:22:32 CDT CPT-80353 Postop F/U Visit 14:37:13 CDT CPT-05020 Ankle Complete - Min 3V 17:11:58 CDT CPT-33750 Foot comp min 3V 17:11:58 CDT CPT-80093 Bladder Scan 09:56:58 CDT CPT-80378 Postop F/U Visit 09:56:58 CDT CPT-51518 Cystoscopy 09:02:42 CDT CPT-68980 Bladder Scan 09:02:42 CDT CPT-32172 Abd single AP View 16:00:35 CDT CPT-97587 Administration single or combination vaccine inc oral 10 :15:43 CDT CPT-57941 Influenza split virus > age 3 10:15:43 CDT CPT-23916 Nail Avulsion 09:24:57 CDT CPT-OV Office Visit 11:15:41 CDT CPT-67961 Abx/Therapy Injection 10:51:30 CDT CPT-J3301 Kenalog 40 mg (Triamcinolone Acetonide) 10:25:12 CDT CPT-J1100 Decadron 4mg (Dexamethasone) 10:25:12 CDT CPT-88749 Anoscopy diagnostic 10:36:12 CDT CPT-OV Office Visit 15:34:31 CDT CPT-33192 Abx/Therapy Injection 08:21:15 [employer] CPT-J1885 Toradol 60 mg (Ketorolac) 10:46:35 [employer] CPT-OV Office Visit 19:51:16 [employer] CPT-80894 Spec Collection and Handling Fee 14:34:18 [employer] CPT-PV Prev. Care Visit 14:19:18 [employer] CPT-76602 Postop F/U Visit 14:47:51 [employer] CPT-56140 Postop F/U Visit 15:15:14 [employer] CPT-34032 Postop F/U Visit 14:41:43 CDT CPT-86254 Postop F/U Visit 15:47:46 CDT CPT-OV Office Visit 15:27:23 CDT CPT-OV Office Visit 17:20:34 CDT CPT-29871 Abx/Therapy Injection 15:05:57 CDT CPT-J1100 Decadron 8mg (Dexamethasone) 14:44:57 CDT CPT-J1040 Depo Medrol 80 mg (Methyl Prednisolone Acetate) 14:44: 57 CDT CPT-JTINJ Joint Injection 10:17:37 CDT CPT-73450 Administration 2+ single or combination vaccines inc oral 13:01:46 [employer] CPT-74360 Administration single or combination vaccine inc oral 13 :01:46 [employer] CPT-89921 Pneumovax 13:01:46 [employer] CPT-84684 Influenza split virus > age 3 13:01:46 [employer] CPT-07541 Administration single or combination vaccine inc oral 08 :56:49 CDT CPT-48708 Tdap 08:56:49 CDT
--- OUTSIDE RECORDS SUMMARY | 2017-03-21 19:35 | XMS REPORT | Clinical Summary ---
Author Author Admin, E Organization [facility] Address Unknown Phone Unavailable Allergies, Adverse Reactions, Alerts Allergy Name Reaction Description Start Date Severity Status Provider VALENTIN Critical Active Rodrigo Fracharlottel [employer]ROLL BENEFITS CLERK CHLORHEXIDINE GLUCONATE tongue and gums swollen Critical Active Hoa Otto RMA NORFLEX Rash Critical Active Silvestrellina Frazell [employer]RO[employer] BENEFITS CLERK TRAZODONE HCL sees things Critical Active Dewayne [...] pain, epigastric DYSPHAGIA UNSPECIFIED 787.20 Resolved Yolande Lindsay MD PhD Dysphagia, unspecified ABDOMINAL PAIN, LEFT [...] Mycoplasma pneumoniae Sexual dysfunction 302.70 Active Jared gO MD Psychosexual dysfunction, unspecified Muscle spasm, back [...] infarction, hx of 412 Active Hoa Otto A Old myocardial infarction Pelvic pain 789.09 Active Yolande Lindsay MD PhD Abdominal pain, other specified site; multiple sites Edema 782.3 Active Yolande Lindsay MD PhD Edema Rash 782.1 Active Yolande Lindsay MD PhD Rash and other nonspecific skin eruption Back pain, lumbar 724.2 Active Gab Padron MD Lumbago Cough 786.2 Active Jillina Tyrel [employer] BENEFITS CLERK Cough 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 Jillina Frazellilian [employer] BENEFITS CLERK 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 Anemia 285.9 Active Gab Padron MD Anemia, unspecified Conjunctivitis 372.30 Active Jillnacho Sarah APRN Conjunctivitis, unspecified Sinusitis 473.9 Active Silvestrellina Frazell [employer]RO[employer] BENEFITS CLERK Unspecified sinusitis (chronic) Nonspecific syndrome suggestive of viral illness 079.99 Active Jillina Frazell [employer]ROLL BENEFITS CLERK Unspecified viral infection Laryngitis 464.00 Active Jillina Frazell [employer] BENEFITS CLERK Acute laryngitis without mention of obstruction Abdominal [...] factitious illness Flank pain, left 789.09 Active Jillina Frazell [employer]RO[employer] BENEFITS CLERK Abdominal pain, other specified site; multiple sites Abdominal pain, generalized 789.07 Active Jillina Farshadzell [employer]RO[employer] BENEFITS CLERK Abdominal pain, generalized Back pain, thoracic region, left 724.1 Active Jillina Frazell [employer]RO[employer] BENEFITS CLERK Pain in thoracic spine Abdominal pain, left lower quadrant 789.04 Active Gab Padron MD Abdominal pain, left lower quadrant Slowing of urinary stream 788.62 Active Gab Padron MD Slowing of urinary stream Interstitial cystitis 595.1 Active Gab Padron MD Chronic interstitial cystitis Flank Pain Active Jared Og MD Abdominal pain, unspecified site Foot pain, left 729.5 Active Gab Padron MD Pain in limb Heel spur 726.73 Active Gab Padron MD Calcaneal spur FOOT PAIN, RIGHT ICD-729.5 Inactive Yolande Lindsay MD PhD ANKLE PAIN, RIGHT ICD-719.47 Inactive Yolande Lindsay MD PhD EDEMA, LIMB ICD-782.3 Inactive Yolande Lindsay MD PhD ABDOMINAL PAIN ICD-789.00 Inactive Yolande Lindsay MD PhD PLANTAR FASCIITIS ICD-728.71 Inactive Yolande Lindsay MD PhD UTI ICD-599.0 Inactive Yolande Lindsay MD PhD OTHER SCREENING MAMMOGRAM ICD-V76.12 Inactive Yolande Lindsay MD PhD KNEE PAIN ICD-719.46 Inactive Yolande Lindsay MD PhD ALLERGIC REACTION, ACUTE ICD-995.3 Inactive Alexis Ordaz MD GERD ICD-530.81 Inactive Todd Callaway MD BACK PAIN ICD-724.5 Inactive Yolande Lindsay MD PhD AFTERCARE FOLLOW SURGERY MUSCULOSKEL SYSTEM NEC ICD-V58.78 02/06 Inactive Todd Callaway MD FREQUENCY, URINARY ICD-788.41 Inactive Yolande Lindsay MD PhD AFTERCARE FLW SURG TEETH ORL CAV&DIGESTV SYS NEC ICD-V58.75 04/25 Inactive Yolande Lindsay MD PhD LONG-TERM (CURRENT) USE OF OTHER MEDICATIONS ICD-V58.69 Inactive Yolande Lindsay MD PhD ROUTINE GYNECOLOGICAL EXAMINATION ICD-V72.31 Inactive Yolande Lindsay MD PhD MUSCLE PAIN ICD-729.1 Inactive Yolande Lindsay MD PhD FISSURE, ANAL ICD-565.0 Inactive Yolande Lindsay MD PhD CHEST PAIN, UNSPECIFIED ICD-786.50 Inactive Yolande Lindsay MD PhD HEADACHE ICD-784.0 Inactive Yolande Lindsay MD PhD OTHER DISORDER OF COCCYX ICD-724.79 Inactive Yolande Lindsay MD PhD ABDOMINAL PAIN, EPIGASTRIC ICD-789.06 Inactive Yolande Lindsay MD PhD DYSPHAGIA UNSPECIFIED ICD-787.20 Inactive Yolande Lindsay MD PhD ABDOMINAL PAIN, [...] left ICD-789.09 Inactive Yolande Lindsay MD PhD Hematuria ICD-599.70 Inactive Yolande Lindsay MD PhD Ankle pain, right ICD-719.47 Inactive Yolande Lindsay MD PhD Foot pain, right ICD-729.5 Inactive Yolande Lindsay MD PhD Tick bite ICD-989.5 Inactive Yolande Lindsay MD PhD URI ICD-465.9 Inactive Yolande Lindsay MD PhD 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 Inactive Yolande Lindsay MD PhD Muscle spasm, back ICD-724.8 Inactive Yolande Lindsay MD PhD Sinusitis, acute ICD-461.9 Inactive Yolande Lindsay MD PhD Flank pain [...] left ICD-719.45 Inactive Yolande Lindsay MD PhD Medication List Medication Instructions Start Date Stop Date Generic Name NDC Status Provider Patient Instruction PREDNISONE 20 MG TAB 2 tabs daily for 3 days, 1 tab daily for 3 days, 1/2 tab daily for 2 days PREDNISONE 12627703988 Active Gab Padron MD Active ZOFRAN ODT 4 MG TBDP 1 po q6hr PRN Nausea ONDANSETRON 43862158047 Active Rodrigo Sarah APRN Active IBUPROFEN 600 MG TAB 1 tablet by mouth every 6 hours for 7 days, then 1 tablet every 6 hours as needed. Take with food IBUPROFEN 76733983964 Active Silvestrellnacho Frahossein GAUTAM Active BACTRIM DS 800-160 MG TAB 1 tab by mouth twice daily TRIMETHOPRIM-SULFAMETHOXAZOLE 26557549549 No Longer Active Gab Padron MD Active ADVAIR DISKUS 250-50 MCG/DOSE AEPB 1 puff BID FLUTICASONE- SALMETEROL 34400812154 Active Rodrigo Sarah APRN Active LEVOTHYROXINE SODIUM 75 MCG TABS Take 1 tab daily LEVOTHYROXINE SODIUM 29099090339 No Longer Active Mariana HICKEYA Active SYNTHROID 88 MCG ORAL TABS Take one by mouth daily LEVOTHYROXINE SODIUM 43857318777 Active Mariana HICKEYA Active CHERATUSSIN AC 100-10 MG/5ML SYRP 1 tsp by mouth every 4 hours as needed for cough GUAIFENESIN-CODEINE 38001925445 No Longer Active Gab Padron MD Active POLYTRIM 77705-8.1 UNIT/ML-% SOLN 1 gtt to affected eye q3h x 7 days POLYMYXIN B-TRIMETHOPRIM 53877278305 No Longer Active Gab Padron MD Active FLUTICASONE PROPIONATE 50 MCG/ACT SUSP 1 to 2 sprays each nostril daily 04/21 FLUTICASONE PROPIONATE 58940534006 No Longer Active Gab Padron MD Active TRILEPTAL 600 MG TABS Take one 1 tablet in Am and 1 tablet at night OXCARBAZEPINE 63131426061 Active Gab Padron MD Active CEFDINIR 300 MG CAPS 1 po BID x 10 days CEFDINIR 58658413965 No Longer Active Rodrigo Sarah APRN Active CEFTIN 500 MG TAB 1 twice a day CEFUROXIME AXETIL 51190430557 No Longer Active Gab Padron MD Active AZITHROMYCIN 250 MG TABS 2 po qd x 1 day, then 1 po qd x 4 days AZITHROMYCIN 69691181919 No Longer Active Silvestrellnacho Sarah APRN Active CLARITIN 10 MG TAB 1 tablet by mouth daily as needed for allergies LORATADINE 40693325374 Active Silvestrellnacho Sarah APRN Active OXYCODONE HCL 5 MG ORAL CAPS 1 TAB PO Q HS OXYCODONE HCL 81589623116 No Longer Active Rodrigo Sarah APRN Active NIASPAN 500 MG ORAL CR-TABS 1 pill nightly x 1 week, then 2 pills nightly x 1 week, then 3 pills nightly x 1 week, then 4 pills nightly NIACIN (ANTIHYPERLIPIDEMIC) 15012321942 No Longer Active Rodrigo Farshadhossein ZAPATAN Active NIACIN 500 MG TABS 1 pill by mouth nightly x 1 week, then 2 pills x 1 week, then 3 pills x 1 week, then 4 pills nightly - take after evening meal, with applesauce or an apple NIACIN 65974787411 No Longer Active Yolande Lindsay MD PhD Active FISH OIL 1000 MG CAPS 3 pills daily OMEGA-3 FATTY ACIDS 24968909001 Active Yolande Lindsay MD PhD Active TRIAMCINOLONE ACETONIDE 0.1 % CREA apply bid sparingly to rash TRIAMCINOLONE ACETONIDE 72869707197 Active Yolande Lindsay MD PhD Active FUROSEMIDE 20 MG TAB 1 tablet by mouth daily FUROSEMIDE 42924944645 Active Tisha Lambert APRN Active LISINOPRIL 20 MG ORAL TABS 1 tab by mouth daily LISINOPRIL 34368046105 Active aGb Padron MD Active FUROSEMIDE 20 MG TABS 1 pill by mouth daily, for edema FUROSEMIDE 90979914517 No Longer Active Yolande Lindsay MD PhD Active ATORVASTATIN CALCIUM 10 MG TABS 1 pill by mouth daily, for cholesterol 09/06 ATORVASTATIN CALCIUM 18806762218 Active Gab Padron MD Active CALCIUM 600+D PLUS MINERALS 600-400 MG-UNIT ORAL CHEW 1 tab by mouth daily CALCIUM CARBONATE-VIT D-MIN 51262035254 No Longer Active Yolande Lindsay MD PhD Active CYCLOBENZAPRINE HCL 10 MG TABS 1 tablet by mouth three times daily as needed for muscle spasm/pain CYCLOBENZAPRINE HCL 54061605009 Active Yolande Lindsay MD PhD Active ONDANSETRON 4 MG TBDP 1 q4h PRN nausea ONDANSETRON 33411685945 Active Yolande Lindsay MD PhD Active ADULT ASPIRIN EC LOW STRENGTH 81 MG TBEC Take 1 tablet by mouth daily 2014 ASPIRIN 41472402655 No Longer Active Yolande Lindsay MD PhD Active ZOFRAN ODT 4 MG TBDP 1 pill dissolved by mouth every 4 hours if needed for nausea ONDANSETRON 74784777495 No Longer Active Yolande Lindsay MD PhD Active CEFTIN 500 MG TAB 1 twice a day CEFUROXIME AXETIL 31104118148 No Longer Active Yolande Lindsay MD PhD Active ALBUTEROL SULFATE 0.083 % NEBU SOLN one vial per nebulizer every 4-6 hours as needed ALBUTEROL SULFATE 69789163748 No Longer Active Alxeis Ordaz MD Active DOXYCYCLINE HYCLATE 100 MG CAP 1 cap by mouth twice daily DOXYCYCLINE HYCLATE 31419254625 No Longer Active Yolande Lindsay MD PhD Active CYCLOBENZAPRINE HCL 10 MG TABS 1/2 - 1 tab by mouth three times daily if needed for spasms/pain CYCLOBENZAPRINE HCL 09577153317 No Longer Active Yolande Lindsay MD PhD Active AZITHROMYCIN 250 MG TABS 2 pills on day 1, then 1 pill daily x 4 days AZITHROMYCIN 57292912828 No Longer Active Yolande Lindsay MD PhD Active XOPENEX 1.25 MG/3ML NEBU 1 neb every 4 hours if needed for cough/congestion LEVALBUTEROL HCL 15558120919 No Longer Active Yolande Lindsay MD PhD Active DOXYCYCLINE HYCLATE 100 MG TAB 1 tab twice a day for 14 days 2013 DOXYCYCLINE HYCLATE 64763693357 No Longer Active Yolande Lindsay MD PhD Active PREVACID 30 MG CPDR Take 1 tablet by mouth daily-PRN LANSOPRAZOLE 86040241309 No Longer Active Yolande Lindsay MD PhD Active PA VITAMIN D-3 2000 UNIT CAPS 1 CAP PO DAILY CHOLECALCIFEROL 67728445515 No Longer Active Yolande Lindsay MD PhD Active CEFDINIR 300 MG CAPS by mouth twice a day CEFDINIR 77904049842 No Longer Active Gab Padron MD Active TOPAMAX 50 MG TABS 1 PO twice daily TOPIRAMATE 67062225512 Active Yolande Lindsay MD PhD Active AZITHROMYCIN 250 MG TABS 2 po qd x 1 day, then 1 po qd x 4 days AZITHROMYCIN 87842217151 No Longer Active Yolande Lindsay MD PhD Active DICLOFENAC SODIUM 75 MG TBEC 1 tablet by q 12 hours PRN headaches DICLOFENAC SODIUM 24549667035 No Longer Active Yolande Lindsay MD PhD Active FLONASE 50 MCG/ACT SUSP 1 spray each nostril am and hs FLUTICASONE PROPIONATE 58163443440 No Longer Active Todd Callaway MD Active ANUSOL-HC 25 MG SUPPOSITORY 1 rectally twice a day as needed for hemorrhoids HYDROCORTISONE JAYDEN (RECTAL) 55645361450 No Longer Active Yolande Lindsay MD PhD Active ANUSOL-HC 25 MG SUPPOSITORY 1 suppository rectally each evening as needed for anal fissure HYDROCORTISONE JAYDEN (RECTAL) 09151329343 No Longer Active LONNIE Iglesias Active VALIUM 5 MG TAB 1 po 30 minutes prior to your MRI DIAZEPAM 83519304358 No Longer Active LONNIE Iglesias Active METHOCARBAMOL 750 MG TABS 1 PO QID PRN METHOCARBAMOL 70280540064 No Longer Active Daphne Wetzel APRN Active NITROSTAT 0.4 MG SUBL as directed NITROGLYCERIN 20846663385 No Longer Active Rodrigo Sarah APRN Active ROBAXIN-750 750 MG TABS 2 four times a day for 3 days as needed for muscle spasm, then 1 four times a day as needed METHOCARBAMOL 73330235477 No Longer Active Rodrigo Sarah APRN Active HYDROCODONE-ACETAMINOPHEN 5-325 MG TABS 1 q 4-6 hrs prn HYDROCODONE-ACETAMINOPHEN 49249346860 No Longer Active Rodrigo Sarah [employer]EF[employer] CLERK Active VERAPAMIL HCL CR 180 MG CR-TABS TAKE 1 TAB DAILY VERAPAMIL HCL 47808687494 No Longer Active Yolande Lindsay MD PhD Active BACTRIM DS 800-160 MG TAB 1 tab by mouth twice daily TRIMETHOPRIM-SULFAMETHOXAZOLE 35685029475 No Longer Active Yolande Lindsay MD PhD Active NEXIUM 40 MG PACK 1 by mouth daily ESOMEPRAZOLE MAGNESIUM 87617842752 No Longer Active Des Hines MD Active EPIPEN 2-CHARLETTE 0.3 MG/0.3ML OMARI as need for allergic reaction EPINEPHRINE 34420363492 Active Yolande Lindsay MD PhD Active NEXIUM 40 MG CPDR 1 PO Q D DAY ESOMEPRAZOLE MAGNESIUM 77173783816 No Longer Active Sadia Perry RN Active NEXIUM 40 MG PACK 1 by mouth daily NEXIUM 40 MG PACK ESOMEPRAZOLE MAGNESIUM Inactive VERAPAMIL HCL CR 180 MG CR-TABS TAKE 1 TAB DAILY VERAPAMIL HCL CR 180 MG CR-TABS VERAPAMIL HCL Inactive HYDROCODONE-ACETAMINOPHEN 5-325 MG TABS 1 q 4-6 hrs prn HYDROCODONE-ACETAMINOPHEN 5-325 MG TABS 535272 HYDROCODONE-ACETAMINOPHEN Inactive ROBAXIN-750 750 MG TABS 2 four times a day for 3 days as needed for muscle spasm, then 1 four times a day as needed ROBAXIN-750 750 MG TABS 565562 METHOCARBAMOL Inactive NITROSTAT 0.4 MG SUBL as directed NITROSTAT 0.4 MG SUBL NITROGLYCERIN Inactive METHOCARBAMOL 750 MG TABS 1 PO QID PRN METHOCARBAMOL 750 MG TABS 150262 METHOCARBAMOL Inactive VALIUM 5 MG TAB 1 po 30 minutes prior to your MRI VALIUM 5 MG TAB 484704 DIAZEPAM Inactive ANUSOL-HC 25 MG SUPPOSITORY 1 suppository rectally each evening as needed for anal fissure ANUSOL-HC 25 MG SUPPOSITORY 1266391 HYDROCORTISONE JAYDEN (RECTAL) Inactive ANUSOL-HC 25 MG SUPPOSITORY 1 rectally twice a day as needed for hemorrhoids ANUSOL-HC 25 MG SUPPOSITORY 2285452 HYDROCORTISONE JAYDEN (RECTAL) Inactive FLONASE 50 MCG/ACT SUSP 1 spray each nostril am and hs FLONASE 50 MCG/ACT SUSP FLUTICASONE PROPIONATE Inactive DICLOFENAC SODIUM 75 MG TBEC 1 tablet by q 12 hours PRN headaches DICLOFENAC SODIUM 75 MG TBEC 014345 DICLOFENAC SODIUM Inactive PA VITAMIN D-3 2000 UNIT CAPS 1 CAP PO DAILY PA VITAMIN D-3 2000 UNIT CAPS CHOLECALCIFEROL Inactive PREVACID 30 MG CPDR Take 1 tablet by mouth daily-PRN PREVACID 30 MG CPDR 005947 LANSOPRAZOLE Inactive DOXYCYCLINE HYCLATE 100 MG TAB 1 tab twice a day for 14 days 2013 DOXYCYCLINE HYCLATE 100 MG TAB 1527546 DOXYCYCLINE HYCLATE Inactive XOPENEX 1.25 MG/3ML NEBU 1 neb every 4 hours if needed for cough/congestion XOPENEX 1.25 MG/3ML NEBU 263074 LEVALBUTEROL HCL Inactive CYCLOBENZAPRINE HCL 10 MG TABS 1/2 - 1 tab by mouth three times daily if needed for spasms/pain CYCLOBENZAPRINE HCL 10 MG TABS 072559 CYCLOBENZAPRINE HCL Inactive ALBUTEROL SULFATE 0.083 % NEBU SOLN one vial per nebulizer every 4-6 hours as needed ALBUTEROL SULFATE 0.083 % NEBU SOLN 528597 ALBUTEROL SULFATE Inactive CEFTIN 500 MG TAB 1 twice a day CEFTIN 500 MG TAB 009271 CEFUROXIME AXETIL Inactive ZOFRAN ODT 4 MG TBDP 1 pill dissolved by mouth every 4 hours if needed for nausea ZOFRAN ODT 4 MG TBDP 212306 ONDANSETRON Inactive ADULT ASPIRIN EC LOW STRENGTH 81 MG TBEC Take 1 tablet by mouth daily 2014 ADULT ASPIRIN EC LOW STRENGTH 81 MG TBEC 137917 ASPIRIN Inactive CALCIUM 600+D PLUS MINERALS 600-400 [...] or an apple NIACIN 500 MG TABS 103327 NIACIN Inactive NIASPAN 500 MG ORAL CR-TABS 1 pill nightly x 1 week, then 2 pills nightly x 1 week, then 3 pills nightly x 1 week, then 4 pills nightly NIASPAN 500 MG ORAL CR-TABS NIACIN (ANTIHYPERLIPIDEMIC) Inactive OXYCODONE HCL 5 MG ORAL CAPS 1 TAB PO Q HS OXYCODONE HCL 5 MG ORAL CAPS 3739733 OXYCODONE HCL Inactive FLUTICASONE PROPIONATE 50 MCG/ACT SUSP 1 to 2 sprays each nostril daily 04/21 FLUTICASONE PROPIONATE 50 MCG/ACT SUSP 753656 FLUTICASONE PROPIONATE Inactive POLYTRIM 97953-3.1 UNIT/ML-% SOLN 1 gtt to affected eye q3h x 7 days POLYTRIM 91998-0.1 UNIT/ML-% SOLN 369074 POLYMYXIN B- TRIMETHOPRIM Inactive CHERATUSSIN AC 100-10 MG/5ML SYRP 1 tsp by mouth every 4 hours as needed for cough CHERATUSSIN AC 100-10 MG/5ML SYRP 046747 GUAIFENESIN-CODEINE Inactive LEVOTHYROXINE SODIUM 75 MCG TABS Take 1 tab daily LEVOTHYROXINE SODIUM 75 MCG TABS 758095 LEVOTHYROXINE SODIUM Inactive BACTRIM DS 800-160 MG TAB 1 tab by mouth twice daily BACTRIM DS 800-160 MG TAB 19820606 TRIMETHOPRIM-SULFAMETHOXAZOLE Inactive AZITHROMYCIN 250 MG TABS 2 po qd x 1 day, then 1 po qd x 4 days AZITHROMYCIN 250 MG TABS 0736484 AZITHROMYCIN Inactive CEFDINIR 300 MG CAPS by mouth twice a day CEFDINIR 300 MG CAPS 20020708 CEFDINIR Inactive AZITHROMYCIN 250 MG TABS 2 pills on day 1, then 1 pill daily x 4 days AZITHROMYCIN 250 MG TABS 1567518 AZITHROMYCIN Inactive DOXYCYCLINE HYCLATE 100 MG CAP 1 cap by mouth twice daily DOXYCYCLINE HYCLATE 100 MG CAP 4966265 DOXYCYCLINE HYCLATE Inactive FUROSEMIDE 20 MG TABS 1 pill by mouth daily, for edema FUROSEMIDE 20 MG TABS 207054 FUROSEMIDE Inactive AZITHROMYCIN 250 MG TABS 2 po qd x 1 day, then 1 po qd x 4 days AZITHROMYCIN 250 MG TABS 1215747 AZITHROMYCIN Inactive CEFTIN 500 MG TAB 1 twice a day CEFTIN 500 MG TAB 060717 CEFUROXIME AXETIL Inactive CEFDINIR 300 MG CAPS 1 po BID x 10 days CEFDINIR 300 MG CAPS 20020708 CEFDINIR Inactive BACTRIM DS 800-160 MG TAB 1 tab by mouth twice daily BACTRIM DS 800-160 MG TAB 19820606 TRIMETHOPRIM-SULFAMETHOXAZOLE Inactive Immunizations Vaccine Administration Date Value Standard Description Seasonal influenza vaccine, injectable, containing preservative, for > 3 years old (Afluria, FluLaval, Fluzone, Fluvirin, Fluarix, Agriflu(>=18 yo)) Fluzone (>3 yrs.) [ZJC964] Influenza, seasonal, injectable influenza immunization (Flu Vax) has been administered Influenza - Unspecified Formulation [CVX88] influenza virus vaccine, unspecified formulation Seasonal influenza vaccine, injectable, containing preservative, for > 3 years old (Afluria, FluLaval, Fluzone, Fluvirin, Fluarix, Agriflu(>=18 yo)) Fluzone (>3 yrs.) [TSS743] Influenza, seasonal, injectable pneumococcal immunization administered Pneumovax 23 [CVX33] pneumococcal polysaccharide vaccine, 23 valent dT (Diphtheria and Tetanus) booster given given Td(adult) unspecified formulation Boostrix (Tetanus toxoid, reduced diphtheria toxoid and acellular pertussis vaccine, adsorbed), booster Boostrix [POI686] tetanus toxoid, reduced diphtheria toxoid, and acellular [...] Panel - Chemistry sodium, serum 142 mmol/L 916-575 8145/06/30 potassium, serum 4.4 mmol/L 3.5-5.2 chloride, serum 108 mmol/L 98-107 carbon dioxide, venous blood 25.1 mmol/L 21.0-32.0 blood glucose 82 mg/dL 65-110 calcium, serum 9.1 mg/dL 8.5-10.1 urea nitrogen, blood 18 mg/dL 7-18 creatinine, serum 1.31 mg/dL 0.55-1.30 Lab Report: [facility] Advanced Lipid and Inlammation Panel /00211 - Chemistry cholesterol, serum 148 mg/dL 689-690 7305/09/02 HDL cholesterol, serum 55 mg/dL > OR=46 triglyceride, serum, fasting 67 mg/dL LDL cholesterol, serum 80 mg/dL cholesterol/HDL ratio, serum 2.7 calc < OR=5.0 Lab Report: CBC - Hematology leukocyte count, blood 5.3 10^3/MM^3 10*3/mm3 4.6-10.2 erythrocyte (RBC) count 4.03 10^6/MM^3 10*6/mm3 4.04-5.48 hemoglobin, blood 10.7 g/dL 12.0-16.0 hematocrit, blood 33.7 % 36.0-46.0 mean corpuscular volume, RBC 84 fL 80-97 mean corpuscular hemoglobin, RBC 26.5 pg 27.0-31.2 mean corpuscular hemoglobin concentration, RBC 31.6 G/DL % 31.8- 35.4 red blood cell distribution width 15.7 % 11.6-14.8 platelet count 224 10^3/MM^3 10*3/mm3 142-424 Lab Report: CBC W/DIFF, [...] (L) - Chemistry sodium, serum 145 mmol/L 684-485 2888/09/02 potassium, serum 4.6 mmol/L 3.5-5.2 chloride, serum [...] Panel, Thyroid Stimulating Hormone (L) - Hematology leukocyte count, blood 4.7 10^3/MM^3 10*3/mm3 4.6-10.2 erythrocyte (RBC) count 3.84 10^6/MM^3 10*6/mm3 4.04-5.48 hemoglobin, blood 11.6 g/dL 12.0-16.0 hematocrit, blood 35.2 % 36.0-46.0 mean corpuscular volume, RBC 91 fL 80-97 mean corpuscular hemoglobin, RBC 30.3 pg 27.0-31.2 mean corpuscular hemoglobin concentration, RBC 33.1 G/DL % 31.8- 35.4 red blood cell distribution width 15.4 % 11.6-14.8 platelet count 166 10^3/MM^3 10*3/mm3 142-424 Lab Report: Comp. Metabolic Panel, Erythrocyte Sed Rate - Chemistry sodium, serum 139 mmol/L 292-739 4024/03/24 carbon dioxide, venous blood 22.4 mmol/L 21.0-32.0 potassium, serum 4.2 mmol/L 3.5-5.2 chloride, serum 105 mmol/L 98-107 blood glucose 90 mg/dL 65-110 urea nitrogen, blood 19 mg/dL 7-18 creatinine, serum 1.35 mg/dL 0.55-1.30 alanine aminotransferase (SGPT), serum 33 U/L 12-78 aspartate aminotransferase (SGOT), serum 23 U/L 15-37 calcium, serum 8.3 mg/dL 8.5-10.1 bilirubin, serum, total 0.20 mg/dL 0.00-1.00 Lab Report: Comp. Metabolic Panel, UADIP W/MICRO, AUTO, Thyroid Stimulat ... - Chemistry sodium, serum 143 mmol/L 673-193 9836/05/02 carbon dioxide, venous blood 25.6 mmol/L 21.0-32.0 potassium, serum 4.8 mmol/L 3.5-5.2 chloride, serum 108 mmol/L 98-107 blood glucose 70 mg/dL 65-110 urea nitrogen, blood 20 mg/dL 7-18 creatinine, serum 1.21 mg/dL 0.55-1.30 alanine aminotransferase (SGPT), serum 32 U/L 12-78 aspartate aminotransferase (SGOT), serum 18 U/L 15-37 [...] Negative mg/dL Negative sodium, serum 142 mmol/L 066-675 8111/07/18 carbon dioxide, venous blood 27.8 mmol/L 21.0-32.0 [...] mg/dL Encounters Code Encounter Date Provider Facility CPT-60531 Level 3 Est. Patient 11:01:51 CDT Gab Padron MD [facility] CPT-66090 Level 3 Est. Patient 15:27:02 CDT Jared Og MD [facility] [place] CPT-52181 Level 4 Est. Patient 09:25:27 CDT Gab Padron MD [facility] CPT-06458 Level 3 Est. Patient 10:29:41 [facility] Patient 17:51:05 CDT Gab Padron MD [facility]-00074 Level 3 Est. Patient 14:18:08 CDT Gab Padron MD [facility]-59004 Level 4 Est. Patient 10:18:54 CDT Gab Padron MD [facility]-46325 Level 3 Est. Patient 11:30:07 CDT Rodrigo Sarah [facility]-43247 Level 4 Est. Patient 21:02:30 COUNTER TENDER Gab Padron MD [facility]-51726 Level 3 Est. Patient 11:02:19 COUNTER TENDER Gab Padron MD [facility]-75164 Level 4 Est. Patient 22:24:31 COUNTER TENDER Gab Padron MD [facility]-69926 Level 3 Est. Patient 18:33:46 COUNTER TENDER Gab Padron MD [facility]-23807 Level 3 Est. Patient 16:19:11 CDT Yolande Lindsay MD [facility]-82188 Level 3 Est. Patient 18:59:14 CDT Yolande Lindsay MD [facility]-75047 Level 4 Est. Patient 21:29:26 CDT Yolande Lindsay MD [facility]-00108 Level 3 Est. Patient 07:37:45 CDT Yolande Lindsay MD [facility]-63739 Level 3 Est. Patient 17:03:46 CDT Yolande Lindsay MD [facility]-32959 Level 4 Est. Patient 20:02:13 COUNTER TENDER Yolande Lindsay MD PhD [facility] CPT-22297 Level 3 Est. Patient 16:02:07 COUNTER TENDER Alexis Ordaz MD [facility] CPT-27292 Level 3 Est. Patient 12:41:24 COUNTER TENDER Yolande Lindsay MD [facility]-89283 Level 3 Est. Patient 15:41:20 COUNTER TENDER Yolande Lindsay MD [facility]-09972 Level 3 Est. Patient 13:20:02 COUNTER TENDER Yolande Lindsay MD [facility]-34512 Level 3 Est. Patient 15:00:38 CDT Jared Og MD [facility]-53737 Level 3 Est. Patient 10:22:32 CDT Yolande Lindsay MD [facility]-84916 Level 3 Est. Patient 17:12:58 CDT Yolande Lindsay MD [facility] CPT-69948 Level 4 Est. Patient 13:30:58 CDT Yolande Lindsay MD [facility] CPT-70086 Level 4 New Patient 09:02:42 CDT Jared Og MD [facility]-10724 Level 3 Est. Patient 08:19:07 CDT Yolande Lindsay MD [facility]-57356 Level 3 Est. Patient 12:00:13 COUNTER TENDER Gab Padron MD [facility]-75408 Level 3 Est. Patient 16:15:23 COUNTER TENDER Yolande Lindsay MD [facility] CPT-55448 Level 2 Est. Patient 19:47:15 CDT Yolande Lindsay MD [facility]-07091 Level 3 Est. Patient 21:38:31 CDT Yolande Lindsay MD [facility]-72629 Level 3 Est. Patient 10:25:12 CDT Adiel PERAZA [facility] CPT-05146 Level 4 Est. Patient 10:51:58 CDT Yolande Lindsay MD [facility]-82895 Level 3 Est. Patient 14:04:55 COUNTER TENDER Rodrigo Sarah [facility] CPT-06437 Level 3 Est. Patient 10:46:35 COUNTER TENDER Rodrigo Sarah [facility] CPT-57435 Level 3 Est. Patient 14:24:37 COUNTER TENDER Yolande Lindsay MD [facility]-[id number] Level 3 Est. Patient 17:41:58 COUNTER TENDER Yolande Lindsay MD [facility]-[id number] Level 2 Est. Patient 22:01:41 COUNTER TENDER Rodrigo Sarah [facility] CPT-94903 Level 2 Est. Patient 22:01:11 COUNTER TENDER Rodrigo Sarah [facility] CPT-36533 Level 3 Est. Patient 10:12:29 COUNTER TENDER Rodrigo Sarah [facility] CPT-75021 Level 3 Est. Patient 11:05:44 CDT Alexis Ordaz MD [facility] CPT-58321 Level 3 Est. Patient 14:57:20 CDT Yolande Lindsay MD [facility]-19121 Level 3 Est. Patient 14:40:57 CDT Yolande Lindsay MD [facility]-31539 Level 3 Est. Patient 20:55:40 CDT Yolande Lindsay MD [facility]-99382 Level 3 Est. Patient 12:42:38 COUNTER TENDER Yolande Lindsay MD [facility]-91312 Level 3 Est. Patient 11:54:49 COUNTER TENDER Des Hines MD [facility] CPT-27491 Level 3 Est. Patient 17:06:38 CDT Dewayne PERAZA [facility] Procedures Code Procedure Name Date Entry Date Standard Description CPT-36110 Foot, left, comp min 3V - XRAY USE ONLY 09:24:54 CDT CPT-96507 Abd single AP View - XRAY USE ONLY 11:16:17 CDT CPT-79395 T spine AP/ Lat - XRAY USE ONLY 09:34:21 CDT CPT-92370 Chest 2V Frontal and Lat - XRAY USE ONLY 10:48:51 CDT CPT-96369 LS spine comp w obliq 13:28:00 COUNTER TENDER CPT-J1040 Depo Medrol 80 mg (Methyl Prednisolone Acetate) 10:51: 28 COUNTER TENDER CPT-J1100 Decadron 8mg (Dexamethasone) 10:51:28 COUNTER TENDER CPT-54490 Abx/Therapy Injection 10:51:28 COUNTER TENDER CPT-J1100 Decadron 8mg (Dexamethasone) 21:02:30 COUNTER TENDER CPT-J1040 Depo Medrol 80 mg (Methyl Prednisolone Acetate) 21:02: 30 COUNTER TENDER [id number] Event Monitor - MC Transmission 09:12:32 CDT 08/06 [id number] Event Monitor - MC review and interp 09:12:32 CDT [id number] Event Monitor - MC recording 09:12:32 CDT CPT-85838 EKG Trac and Interp 16:50:22 CDT CPT-J1030 Depo Medrol 40 mg (Methyl Prednisolone Acetate) 17:05: 54 CDT CPT-J1100 Decadron 4mg (Dexamethasone) 17:05:54 CDT CPT-77800 Abx/Therapy Injection 17:05:54 CDT CPT-J1100 Decadron 4mg (Dexamethasone) 16:55:28 CDT CPT-J1030 Depo Medrol 40 mg (Methyl Prednisolone Acetate) 16:55: 28 CDT CPT-30174 Ankle Complete - Min 3V 15:58:50 CDT CPT-61587 Knee 3V 15:58:50 CDT CPT-11695 Hip comp min 2V 15:58:50 CDT CPT-J2270 Morphine Sulfate 10 mg 14:25:44 COUNTER TENDER CPT-J2550 Phenergan 12.5 mg (Promethazine) 14:25:44 COUNTER TENDER CPT-37550 Abx/Therapy Injection 14:25:44 COUNTER TENDER CPT-J2550 Phenergan 12.5 mg (Promethazine) 14:08:03 COUNTER TENDER CPT-J2270 Morphine Sulfate 10 mg 14:08:03 COUNTER TENDER CPT-69197 Bladder Scan 15:00:38 CDT CPT-TCMM Transitional Care Mgmt-Moderate 09:52:22 CDT CPT-J1030 Depo Medrol 40 mg (Methyl Prednisolone Acetate) 10:55: 18 CDT CPT-J1100 Decadron 4mg (Dexamethasone) 10:55:18 CDT CPT-81214 Abx/Therapy Injection 10:55:18 CDT CPT-J1030 Depo Medrol 40 mg (Methyl Prednisolone Acetate) 10:22: 32 CDT CPT-J1100 Decadron 4mg (Dexamethasone) 10:22:32 CDT CPT-37792 Postop F/U Visit 14:37:13 CDT CPT-50263 Ankle Complete - Min 3V 17:11:58 CDT CPT-81258 Foot comp min 3V 17:11:58 CDT CPT-01776 Bladder Scan 09:56:58 CDT CPT-09225 Postop F/U Visit 09:56:58 CDT CPT-36689 Cystoscopy 09:02:42 CDT CPT-23169 Bladder Scan 09:02:42 CDT CPT-04321 Abd single AP View 16:00:35 CDT CPT-81322 Administration single or combination vaccine inc oral 10 :15:43 CDT CPT-61522 Influenza split virus > age 3 10:15:43 CDT CPT-95788 Nail Avulsion 09:24:57 CDT CPT-OV Office Visit 11:15:41 CDT CPT-07499 Abx/Therapy Injection 10:51:30 CDT CPT-J3301 Kenalog 40 mg (Triamcinolone Acetonide) 10:25:12 CDT CPT-J1100 Decadron 4mg (Dexamethasone) 10:25:12 CDT CPT-04133 Anoscopy diagnostic 10:36:12 CDT CPT-OV Office Visit 15:34:31 CDT CPT-80783 Abx/Therapy Injection 08:21:15 COUNTER TENDER CPT-J1885 Toradol 60 mg (Ketorolac) 10:46:35 COUNTER TENDER CPT-OV Office Visit 19:51:16 COUNTER TENDER CPT-79899 Spec Collection and Handling Fee 14:34:18 COUNTER TENDER CPT-PV Prev. Care Visit 14:19:18 COUNTER TENDER CPT-49822 Postop F/U Visit 14:47:51 COUNTER TENDER CPT-82369 Postop F/U Visit 15:15:14 COUNTER TENDER CPT-16769 Postop F/U Visit 14:41:43 CDT CPT-22756 Postop F/U Visit 15:47:46 CDT CPT-OV Office Visit 15:27:23 CDT CPT-OV Office Visit 17:20:34 CDT CPT-98559 Abx/Therapy Injection 15:05:57 CDT CPT-J1100 Decadron 8mg (Dexamethasone) 14:44:57 CDT CPT-J1040 Depo Medrol 80 mg (Methyl Prednisolone Acetate) 14:44: 57 CDT CPT-JTINJ Joint Injection 10:17:37 CDT CPT-84788 Administration 2+ single or combination vaccines inc oral 13:01:46 COUNTER TENDER CPT-66729 Administration single or combination vaccine inc oral 13 :01:46 COUNTER TENDER CPT-86173 Pneumovax 13:01:46 COUNTER TENDER CPT-77276 Influenza split virus > age 3 13:01:46 COUNTER TENDER CPT-27360 Administration single or combination vaccine inc oral 08 :56:49 CDT CPT-15787 Tdap 08:56:49 CDT
--- OUTSIDE RECORDS SUMMARY | 2017-03-21 19:37 | XMS REPORT | Clinical Summary ---
Author Author Admin, MARGRET Organization [facility] Address Unknown Phone Unavailable Allergies, Adverse Reactions, Alerts Allergy Name Reaction Description Start Date Severity Status Provider VALENTIN Critical Active Rodrigo Montemayorl NEWSCAST DIRECTOR CHLORHEXIDINE GLUCONATE tongue and gums swollen Critical Active Hoa Kabaford RMA NORFLEX Rash Critical Active Rowenaina Frazell NEWSCAST DIRECTOR TRAZODONE HCL sees things Critical Active Dewayne [...] of coccyx ABDOMINAL PAIN, EPIGASTRIC 789.06 Resolved Yolaned Lindsay MD PhD Abdominal pain, epigastric DYSPHAGIA [...] infarction, hx of 412 Active Hoa Otto [facility] Old myocardial infarction Pelvic pain 789.09 Active Yolande Lindsay MD PhD Abdominal pain, other specified site; multiple sites Edema 782.3 Active Yolande Lindsay MD PhD Edema Rash 782.1 Active Yolande Lindsay MD PhD Rash and other nonspecific skin eruption Back pain, lumbar 724.2 Active Gab Padron MD Lumbago Cough 786.2 Active Jillina Tyrel [employer]SC[employer] DIRECTOR Cough 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 Jillina Frazellilian ZAPATAN 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 Anemia 285.9 Active Gab Padron MD Anemia, unspecified Conjunctivitis 372.30 Active Jillnacho Sarah APRN Conjunctivitis, unspecified Sinusitis 473.9 Active Jillina Frazell NEWSCAST DIRECTOR Unspecified sinusitis (chronic) Nonspecific syndrome suggestive of viral illness 079.99 Active Jillina Siml [employer]SCAST DIRECTOR Unspecified viral infection Laryngitis 464.00 Active Jillina Farshadzell NEWSCAST DIRECTOR Acute laryngitis without mention of obstruction Abdominal [...] illness Flank pain, left 789.09 Active Jillina Siml DIAN Abdominal pain, other specified site; multiple sites Abdominal pain, generalized 789.07 Active Silvestrellina Siml [employer]SCAST DIRECTOR Abdominal pain, generalized Back pain, thoracic region, left 724.1 Active Jillina Farshadzell NEWSCAST DIRECTOR Pain in thoracic spine Abdominal pain, left [...] 726.73 Active Gab Padron MD Calcaneal spur Breast tenderness 611.71 Active Gab Padron MD Mastodynia Routine gynecological examination V72.31 Active Gab Padron MD Routine gynecological examination Breast mass, right 611.72 Active Gab Padron MD Lump or mass in breast Renal mass 593.9 Active Jared Og MD Unspecified disorder of kidney and ureter Nausea 787.02 Active Jared Og MD Nausea alone Hip pain, left 719.45 Active Gab Padron MD Pain in joint involving pelvic region and thigh FOOT PAIN, RIGHT ICD-729.5 Inactive Yolande Lindsay [...] Generic Name NDC Status Provider Patient Instruction TRAMADOL HCL 50 MG TABS 1 tab po every 6 hrs prn pain TRAMADOL HCL 55785416654 Active Gab Padron MD Active PREDNISONE 20 MG TAB 2 tabs daily for 3 days, 1 tab daily for 3 days, 1/2 tab daily for 2 days PREDNISONE 44761456474 No Longer Active Gab Padron MD Active ZOFRAN ODT 4 MG TBDP 1 po q6hr PRN Nausea ONDANSETRON 84640197871 Active Gab Padron MD Active IBUPROFEN 600 MG TAB 1 tablet by mouth every 6 hours for 7 days, then 1 tablet every 6 hours as needed. Take with food IBUPROFEN 10744920576 Active Jillina Frazell NEWSCAST DIRECTOR Active BACTRIM DS 800-160 MG TAB 1 tab by mouth twice daily TRIMETHOPRIM-SULFAMETHOXAZOLE 94912150774 No Longer Active Gab Padron MD Active ADVAIR DISKUS 250-50 MCG/DOSE AEPB 1 puff BID FLUTICASONE- SALMETEROL 31957524636 Active Jillnacho Sarah NEWSCAST DIRECTOR Active LEVOTHYROXINE SODIUM 75 MCG TABS Take 1 tab daily LEVOTHYROXINE SODIUM 65039746828 No Longer Active Mariana Cuadra [facility] Active SYNTHROID 88 MCG ORAL TABS Take one by mouth daily LEVOTHYROXINE SODIUM 71711424958 Active Gab Padron MD Active CHERATUSSIN AC 100-10 MG/5ML SYRP 1 tsp by mouth every 4 hours as needed for cough GUAIFENESIN-CODEINE 60732698495 No Longer Active Gab Padron MD Active POLYTRIM 27846-4.1 UNIT/ML-% SOLN 1 gtt to affected eye q3h x 7 days POLYMYXIN B-TRIMETHOPRIM 30012665239 No Longer Active Gab Padron MD Active FLUTICASONE PROPIONATE 50 MCG/ACT SUSP 1 to 2 sprays each nostril daily 04/21 FLUTICASONE PROPIONATE 52564092856 No Longer Active Gab Padron MD Active TRILEPTAL 600 MG TABS Take one 1 tablet in Am and 1 tablet at night OXCARBAZEPINE 53674817398 Active Gab Padron MD Active CEFDINIR 300 MG CAPS 1 po BID x 10 days CEFDINIR 33402043351 No Longer Active Rodrigo Sarah APRN Active CEFTIN 500 MG TAB 1 twice a day CEFUROXIME AXETIL 52974895793 No Longer Active Gab Padron MD Active AZITHROMYCIN 250 MG TABS 2 po qd x 1 day, then 1 po qd x 4 days AZITHROMYCIN 04646555720 No Longer Active Rodrigo Sarah APRN Active CLARITIN 10 MG TAB 1 tablet by mouth daily as needed for allergies LORATADINE 34750905749 Active Rodrigo Sarah APRN Active OXYCODONE HCL 5 MG ORAL CAPS 1 TAB PO Q HS OXYCODONE HCL 70102553131 No Longer Active Rodrigo Sarah APRN Active NIASPAN 500 MG ORAL CR-TABS 1 pill nightly x 1 week, then 2 pills nightly x 1 week, then 3 pills nightly x 1 week, then 4 pills nightly NIACIN (ANTIHYPERLIPIDEMIC) 26364846322 No Longer Active Rodrigo Sarah APRN Active NIACIN 500 MG TABS 1 pill by mouth nightly x 1 week, then 2 pills x 1 week, then 3 pills x 1 week, then 4 pills nightly - take after evening meal, with applesauce or an apple NIACIN 46272282001 No Longer Active Yolande Lindsay MD PhD Active FISH OIL 1000 MG CAPS 3 pills daily OMEGA-3 FATTY ACIDS 00847861135 Active Yolande Lindsay MD PhD Active TRIAMCINOLONE ACETONIDE 0.1 % CREA apply bid sparingly to rash TRIAMCINOLONE ACETONIDE 99152151279 Active Yolande Lindsay MD PhD Active FUROSEMIDE 20 MG TAB 1 tablet by mouth daily FUROSEMIDE 32949726859 Active Tisha Lambert APRN Active LISINOPRIL 20 MG ORAL TABS 1 tab by mouth daily LISINOPRIL 14982080427 Active Tisha Lambert APRN Active FUROSEMIDE 20 MG TABS 1 pill by mouth daily, for edema FUROSEMIDE 11433388315 No Longer Active Yolande Lindsay MD PhD Active ATORVASTATIN CALCIUM 10 MG TABS 1 pill by mouth daily, for cholesterol 09/06 ATORVASTATIN CALCIUM 30314101366 Active Gab Padron MD Active CALCIUM 600+D PLUS MINERALS 600-400 MG-UNIT ORAL CHEW 1 tab by mouth daily CALCIUM CARBONATE-VIT D-MIN 27408147908 No Longer Active Yolande Lindsay MD PhD Active CYCLOBENZAPRINE HCL 10 MG TABS 1 tablet by mouth three times daily as needed for muscle spasm/pain CYCLOBENZAPRINE HCL 38721611904 Active Yolande Lindsay MD PhD Active ONDANSETRON 4 MG TBDP 1 q4h PRN nausea ONDANSETRON 23271604461 Active Yolande Lindsay MD PhD Active ADULT ASPIRIN EC LOW STRENGTH 81 MG TBEC Take 1 tablet by mouth daily 2014 ASPIRIN 05851205751 No Longer Active Yolande Lindsay MD PhD Active ZOFRAN ODT 4 MG TBDP 1 pill dissolved by mouth every 4 hours if needed for nausea ONDANSETRON 22997078328 No Longer Active Yolande Lindsay MD PhD Active CEFTIN 500 MG TAB 1 twice a day CEFUROXIME AXETIL 71640688726 No Longer Active Yolande Lindsay MD PhD Active ALBUTEROL SULFATE 0.083 % NEBU SOLN one vial per nebulizer every 4-6 hours as needed ALBUTEROL SULFATE 92354579215 No Longer Active Alexis Ordza MD Active DOXYCYCLINE HYCLATE 100 MG CAP 1 cap by mouth twice daily DOXYCYCLINE HYCLATE 34915567604 No Longer Active Yolande Lindsay MD PhD Active CYCLOBENZAPRINE HCL 10 MG TABS 1/2 - 1 tab by mouth three times daily if needed for spasms/pain CYCLOBENZAPRINE HCL 35482057640 No Longer Active Yolande Lindsay MD PhD Active AZITHROMYCIN 250 MG TABS 2 pills on day 1, then 1 pill daily x 4 days AZITHROMYCIN 59930757896 No Longer Active Yolande Lindsay MD PhD Active XOPENEX 1.25 MG/3ML NEBU 1 neb every 4 hours if needed for cough/congestion LEVALBUTEROL HCL 16260577073 No Longer Active Yolande Lindsay MD PhD Active DOXYCYCLINE HYCLATE 100 MG TAB 1 tab twice a day for 14 days 2013 DOXYCYCLINE HYCLATE 74945491053 No Longer Active Yolande Lindsay MD PhD Active PREVACID 30 MG CPDR Take 1 tablet by mouth daily-PRN LANSOPRAZOLE 00435319357 No Longer Active Yolande Lindsay MD PhD Active PA VITAMIN D-3 2000 UNIT CAPS 1 CAP PO DAILY CHOLECALCIFEROL 83941596594 No Longer Active Yolande Lindsay MD PhD Active CEFDINIR 300 MG CAPS by mouth twice a day CEFDINIR 84788945772 No Longer Active Gab Padron MD Active TOPAMAX 50 MG TABS 1 PO twice daily TOPIRAMATE 05228615217 Active Yolande Lindsay MD PhD Active AZITHROMYCIN 250 MG TABS 2 po qd x 1 day, then 1 po qd x 4 days AZITHROMYCIN 98539923137 No Longer Active Yolande Lindsay MD PhD Active DICLOFENAC SODIUM 75 MG TBEC 1 tablet by q 12 hours PRN headaches DICLOFENAC SODIUM 31013444314 No Longer Active Yolande Lindsay MD PhD Active FLONASE 50 MCG/ACT SUSP 1 spray each nostril am and hs FLUTICASONE PROPIONATE 44900565558 No Longer Active Todd Callaway MD Active ANUSOL-HC 25 MG SUPPOSITORY 1 rectally twice a day as needed for hemorrhoids HYDROCORTISONE JAYDEN (RECTAL) 45709804273 No Longer Active Yolande Lindsay MD PhD Active ANUSOL-HC 25 MG SUPPOSITORY 1 suppository rectally each evening as needed for anal fissure HYDROCORTISONE JAYDEN (RECTAL) 48393362453 No Longer Active Bozena Coleman, RMA Active VALIUM 5 MG TAB 1 po 30 minutes prior to your MRI DIAZEPAM 88707629506 No Longer Active Bozena JaredEDELMIRAFeliciano Active METHOCARBAMOL 750 MG TABS 1 PO QID PRN METHOCARBAMOL 36746079034 No Longer Active Daphne Wetzel NEWSCAST DIRECTOR Active NITROSTAT 0.4 MG SUBL as directed NITROGLYCERIN 39037484049 No Longer Active Rodrigo Sarah NEWSCAST DIRECTOR Active ROBAXIN-750 750 MG TABS 2 four times a day for 3 days as needed for muscle spasm, then 1 four times a day as needed METHOCARBAMOL 06092308484 No Longer Active Rodrigo Sarah APRN Active HYDROCODONE-ACETAMINOPHEN 5-325 MG TABS 1 q 4-6 hrs prn HYDROCODONE-ACETAMINOPHEN 82462985865 No Longer Active Rodrigo Sarah APRN Active VERAPAMIL HCL CR 180 MG CR-TABS TAKE 1 TAB DAILY VERAPAMIL HCL 91493171622 No Longer Active Yolande Lindsay MD PhD Active BACTRIM DS 800-160 MG TAB 1 tab by mouth twice daily TRIMETHOPRIM-SULFAMETHOXAZOLE 21084905169 No Longer Active Yolande Lindsay MD PhD Active NEXIUM 40 MG PACK 1 by mouth daily ESOMEPRAZOLE MAGNESIUM 67447992026 No Longer Active Des Hines MD Active EPIPEN 2-CHARLETTE 0.3 MG/0.3ML OMARI as need for allergic reaction EPINEPHRINE 43274373787 Active Yolande Lindsay MD PhD Active NEXIUM 40 MG CPDR 1 PO Q D DAY ESOMEPRAZOLE MAGNESIUM 12800671888 No Longer Active Sadia Perry RN Active NEXIUM 40 MG PACK 1 by mouth daily NEXIUM 40 MG PACK ESOMEPRAZOLE MAGNESIUM Inactive VERAPAMIL HCL CR 180 MG CR-TABS TAKE 1 TAB DAILY VERAPAMIL HCL CR 180 MG CR-TABS VERAPAMIL HCL Inactive HYDROCODONE-ACETAMINOPHEN 5-325 MG TABS 1 q 4-6 hrs prn HYDROCODONE-ACETAMINOPHEN 5-325 MG TABS 010919 HYDROCODONE-ACETAMINOPHEN Inactive ROBAXIN-750 750 MG TABS 2 four times a day for 3 days as needed for muscle spasm, then 1 four times a day as needed ROBAXIN-750 750 MG TABS 583882 METHOCARBAMOL Inactive NITROSTAT 0.4 MG SUBL as directed NITROSTAT 0.4 MG SUBL 588978 NITROGLYCERIN Inactive METHOCARBAMOL 750 MG TABS 1 PO QID PRN METHOCARBAMOL 750 MG TABS 721990 METHOCARBAMOL Inactive VALIUM 5 MG TAB 1 po 30 minutes prior to your MRI VALIUM 5 MG TAB 555073 DIAZEPAM Inactive ANUSOL-HC 25 MG SUPPOSITORY 1 suppository rectally each evening as needed for anal fissure ANUSOL-HC 25 MG SUPPOSITORY 4015533 HYDROCORTISONE JAYDEN (RECTAL) Inactive ANUSOL-HC 25 MG SUPPOSITORY 1 rectally twice a day as needed for hemorrhoids ANUSOL-HC 25 MG SUPPOSITORY 9389848 HYDROCORTISONE JAYDEN (RECTAL) Inactive FLONASE 50 MCG/ACT SUSP 1 spray each nostril am and hs FLONASE 50 MCG/ACT SUSP FLUTICASONE PROPIONATE Inactive DICLOFENAC SODIUM 75 MG TBEC 1 tablet by q 12 hours PRN headaches DICLOFENAC SODIUM 75 MG TBEC 848746 DICLOFENAC SODIUM Inactive PA VITAMIN D-3 2000 UNIT CAPS 1 CAP PO DAILY PA VITAMIN D-3 2000 UNIT CAPS CHOLECALCIFEROL Inactive PREVACID 30 MG CPDR Take 1 tablet by mouth daily-PRN PREVACID 30 MG CPDR 953992 LANSOPRAZOLE Inactive DOXYCYCLINE HYCLATE 100 MG TAB 1 tab twice a day for 14 days 2013 DOXYCYCLINE HYCLATE 100 MG TAB 2700225 DOXYCYCLINE HYCLATE Inactive XOPENEX 1.25 MG/3ML NEBU 1 neb every 4 hours if needed for cough/congestion XOPENEX 1.25 MG/3ML NEBU 520485 LEVALBUTEROL HCL Inactive CYCLOBENZAPRINE HCL 10 MG TABS 1/2 - 1 tab by mouth three times daily if needed for spasms/pain CYCLOBENZAPRINE HCL 10 MG TABS 331840 CYCLOBENZAPRINE HCL Inactive ALBUTEROL SULFATE 0.083 % NEBU SOLN one vial per nebulizer every 4-6 hours as needed ALBUTEROL SULFATE 0.083 % NEBU SOLN 901618 ALBUTEROL SULFATE Inactive CEFTIN 500 MG TAB 1 twice a day CEFTIN 500 MG TAB 451363 CEFUROXIME AXETIL Inactive ZOFRAN ODT 4 MG TBDP 1 pill dissolved by mouth every 4 hours if needed for nausea ZOFRAN ODT 4 MG TBDP 215941 ONDANSETRON Inactive ADULT ASPIRIN EC LOW STRENGTH 81 MG TBEC Take 1 tablet by mouth daily 2014 ADULT ASPIRIN EC LOW STRENGTH 81 MG TBEC 237377 ASPIRIN Inactive CALCIUM 600+D PLUS MINERALS 600-400 [...] or an apple NIACIN 500 MG TABS 263019 NIACIN Inactive NIASPAN 500 MG ORAL CR-TABS 1 pill nightly x 1 week, then 2 pills nightly x 1 week, then 3 pills nightly x 1 week, then 4 pills nightly NIASPAN 500 MG ORAL CR-TABS NIACIN (ANTIHYPERLIPIDEMIC) Inactive OXYCODONE HCL 5 MG ORAL CAPS 1 TAB PO Q HS OXYCODONE HCL 5 MG ORAL CAPS 8788990 OXYCODONE HCL Inactive FLUTICASONE PROPIONATE 50 MCG/ACT SUSP 1 to 2 sprays each nostril daily 04/21 FLUTICASONE PROPIONATE 50 MCG/ACT SUSP 5821497 FLUTICASONE PROPIONATE Inactive POLYTRIM 44022-1.1 UNIT/ML-% SOLN 1 gtt to affected eye q3h x 7 days POLYTRIM 33541-2.1 UNIT/ML-% SOLN 716867 POLYMYXIN B- TRIMETHOPRIM Inactive CHERATUSSIN AC 100-10 MG/5ML SYRP 1 tsp by mouth every 4 hours as needed for cough CHERATUSSIN AC 100-10 MG/5ML SYRP 718437 GUAIFENESIN-CODEINE Inactive LEVOTHYROXINE SODIUM 75 MCG TABS Take 1 tab daily LEVOTHYROXINE SODIUM 75 MCG TABS 484284 LEVOTHYROXINE SODIUM Inactive BACTRIM DS 800-160 MG TAB 1 tab by mouth twice daily BACTRIM DS 800-160 MG TAB 367167 TRIMETHOPRIM-SULFAMETHOXAZOLE Inactive AZITHROMYCIN 250 MG TABS 2 po qd x 1 day, then 1 po qd x 4 days AZITHROMYCIN 250 MG TABS 4800975 AZITHROMYCIN Inactive CEFDINIR 300 MG CAPS by mouth twice a day CEFDINIR 300 MG CAPS 758910 CEFDINIR Inactive AZITHROMYCIN 250 MG TABS 2 pills on day 1, then 1 pill daily x 4 days AZITHROMYCIN 250 MG TABS 9107103 AZITHROMYCIN Inactive DOXYCYCLINE HYCLATE 100 MG CAP 1 cap by mouth twice daily DOXYCYCLINE HYCLATE 100 MG CAP 5202196 DOXYCYCLINE HYCLATE Inactive FUROSEMIDE 20 MG TABS 1 pill by mouth daily, for edema FUROSEMIDE 20 MG TABS 924222 FUROSEMIDE Inactive AZITHROMYCIN 250 MG TABS 2 po qd x 1 day, then 1 po qd x 4 days AZITHROMYCIN 250 MG TABS 0169595 AZITHROMYCIN Inactive CEFTIN 500 MG TAB 1 twice a day CEFTIN 500 MG TAB 092641 CEFUROXIME AXETIL Inactive CEFDINIR 300 MG CAPS 1 po BID x 10 days CEFDINIR 300 MG CAPS 213246 CEFDINIR Inactive BACTRIM DS 800-160 MG TAB 1 tab by mouth twice daily BACTRIM DS 800-160 MG TAB 077357 TRIMETHOPRIM-SULFAMETHOXAZOLE Inactive PREDNISONE 20 MG TAB 2 tabs daily for 3 days, 1 tab daily for 3 days, 1/2 tab daily for 2 days PREDNISONE 20 MG TAB 944607 PREDNISONE Inactive Immunizations Vaccine Administration Date Value Standard Description Seasonal influenza vaccine, injectable, containing preservative, for > 3 years old (Afluria, FluLaval, Fluzone, Fluvirin, Fluarix, Agriflu(>=18 yo)) Fluzone (>3 yrs.) [MTY874] Influenza, seasonal, injectable influenza immunization (Flu Vax) has been administered Influenza - Unspecified Formulation [CVX88] influenza virus vaccine, unspecified formulation Seasonal influenza vaccine, injectable, containing preservative, for > 3 years old (Afluria, FluLaval, Fluzone, Fluvirin, Fluarix, Agriflu(>=18 yo)) Fluzone (>3 yrs.) [AFH924] Influenza, seasonal, injectable pneumococcal immunization administered Pneumovax 23 [CVX33] pneumococcal polysaccharide vaccine, 23 valent dT (Diphtheria and Tetanus) booster given given Td(adult) unspecified formulation Boostrix (Tetanus toxoid, reduced diphtheria toxoid and acellular pertussis vaccine, adsorbed), booster Boostrix [UAL821] tetanus toxoid, reduced diphtheria toxoid, and acellular pertussis vaccine, adsorbed Vital Signs Date Name Value Unit Range Description blood pressure, diastolic - 8462-4 74 mm[Hg] BP weldon blood pressure, systolic - 8480-6 149 mm[Hg] BP sys pulse rate E&M - 8867-4 54 /min Heart rate temperature E&M 98.0 [degF] Body temperature weight E&M - 3141-9 247 [lb_av] Weight Measured blood pressure, diastolic - 8462-4 74 mm[Hg] BP weldon blood pressure, systolic - 8480-6 122 mm[Hg] BP sys pulse rate E&M - 8867-4 67 /min Heart rate temperature E&M 98.2 [degF] Body temperature blood pressure, diastolic - 8462-4 73 mm[Hg] BP weldon blood pressure, systolic - 8480-6 150 mm[Hg] BP sys pulse rate E&M - 8867-4 55 /min Heart rate temperature E&M 98.1 [degF] Body temperature weight E&M - 3141-9 253 [lb_av] Weight Measured blood pressure, diastolic - 8462-4 70 mm[Hg] BP weldon blood pressure, systolic - 8480-6 122 mm[Hg] BP sys pulse rate E&M - 8867-4 56 /min Heart rate temperature E&M 98.6 [degF] Body temperature weight E&M - 3141-9 249.5 [lb_av] Weight Measured blood pressure, diastolic - 8462-4 68 mm[Hg] BP weldon blood pressure, systolic - 8480-6 125 mm[Hg] BP sys pulse rate E&M - 8867-4 56 /min Heart rate temperature E&M 97.7 [degF] Body temperature weight E&M - 3141-9 248.5 [lb_av] Weight Measured blood pressure, diastolic - 8462-4 68 mm[Hg] BP weldon blood pressure, systolic - 8480-6 125 mm[Hg] BP sys pulse rate E&M - 8867-4 56 /min Heart rate temperature E&M 97.7 [degF] Body temperature weight E&M - 3141-9 247 [lb_av] Weight Measured blood pressure, diastolic - 8462-4 75 mm[Hg] BP weldon blood pressure, systolic - 8480-6 130 mm[Hg] BP sys pulse rate E&M - 8867-4 70 /min Heart rate temperature E&M 98.3 [degF] Body temperature weight E&M - 3141-9 243 [lb_av] Weight Measured blood pressure, diastolic - 8462-4 70 mm[Hg] BP weldon blood pressure, systolic - 8480-6 133 mm[Hg] BP sys pulse rate E&M - 8867-4 66 /min Heart rate temperature E&M 98.4 [degF] Body temperature weight E&M - 3141-9 246.5 [lb_av] Weight Measured blood pressure, diastolic - 8462-4 72 mm[Hg] BP weldon blood pressure, systolic - 8480-6 137 mm[Hg] BP sys pulse rate E&M - 8867-4 58 /min Heart rate temperature E&M 97.9 [degF] Body temperature weight E&M - 3141-9 247 [lb_av] Weight Measured blood pressure, diastolic - 8462-4 78 mm[Hg] BP weldon blood pressure, systolic - 8480-6 139 mm[Hg] BP sys pulse rate E&M - 8867-4 73 /min Heart rate temperature E&M 98.3 [degF] Body temperature weight E&M - 3141-9 247 [lb_av] Weight Measured blood pressure, diastolic - [...] E&M - 3141-9 244 [lb_av] Weight Measured Diagnostic Results Date Name Value Unit Range Description Lab Report: Basic Metabolic Panel - Chemistry sodium, serum 142 mmol/L 635-127 3704/06/30 potassium, serum 4.4 mmol/L 3.5-5.2 chloride, serum 108 mmol/L 98-107 carbon dioxide, venous blood 25.1 mmol/L 21.0-32.0 blood glucose 82 mg/dL 65-110 calcium, serum 9.1 mg/dL 8.5-10.1 urea nitrogen, blood 18 mg/dL 7-18 creatinine, serum 1.31 mg/dL 0.55-1.30 Lab Report: CBC W/DIFF, RapidStrep Rflx/Cx, TIERA [...] rapid flu test Negative Negative;Positive Lab Report: Comp. Metabolic Panel, Erythrocyte Sed Rate - Chemistry sodium, serum 139 mmol/L 710-800 8475/03/24 carbon dioxide, venous blood 22.4 mmol/L 21.0-32.0 [...] ... - Chemistry sodium, serum 143 mmol/L 010-167 9393/05/02 carbon dioxide, venous blood 25.6 mmol/L 21.0-32.0 [...] pH, urine, semiquantitative 6.5 5.0-8.5 Lab Report: Lipid Panel, HEPATIC PANEL - Chemistry cholesterol, serum 166 mg/dL 487-443 8290/12/06 triglyceride, serum, fasting 86 mg/dL 30-200 HDL cholesterol, serum 62 mg/dL 32-96 LDL cholesterol, serum 87 mg/dL 0-130 aspartate aminotransferase (SGOT), serum 18 U/L 15-37 alanine aminotransferase (SGPT), serum 29 U/L 12-78 bilirubin, serum, total 0.20 mg/dL 0.00-1.00 Lab Report: MicroAlb Random w/creat/6517 - Urinalysis microalbumin/total urine volume 3 mg/L Units converted. See lab report for original value. microalbumin/creatinine ratio, urine 5 MCG/MG CREAT mg/L <30 Lab Report: UADIP W/MICRO, AUTO, CBC W/DIFF, Comp. Metabolic Panel - Chemistry RBC, urine, dipstick Negative Negative protein, total urine random Negative mg/dL Negative sodium, serum 142 mmol/L 219-472 4620/07/18 carbon dioxide, venous blood 27.8 mmol/L 21.0-32.0 potassium, serum 4.1 mmol/L 3.5-5.2 chloride, serum 107 mmol/L 98-107 blood glucose 91 mg/dL 65-110 urea nitrogen, blood 19 mg/dL 7-18 creatinine, serum 1.28 mg/dL 0.55-1.30 alanine aminotransferase (SGPT), serum 31 U/L 12-78 aspartate aminotransferase (SGOT), serum 25 U/L 15-37 calcium, serum 8.8 mg/dL 8.5-10.1 bilirubin, serum, total 0.30 mg/dL 0.00-1.00 Lab Report: UADIP W/MICRO, AUTO, CBC W/DIFF, [...] CBC W/DIFF, Comp. Metabolic Panel - Urinalysis urobilinogen, urine, semiquantitative (dipstick) 0.2 Normal leukocyte esterase, urine, by dipstick Negative Negative nitrite, urine, semiquantitative Negative Negative glucose, urine, semiquantitative Negative Negative ketones, urine, by test strip Negative Negative bilirubin, urine Negative Negative urine color Yellow Colorless;Lightyellow;Straw;Yellow appearance, urine Clear Clear specific gravity, urine 1.020 1.000-1.030 pH, urine, semiquantitative 6.5 5.0-8.5 Office Visit: 3 MO F/U - Basic LDL target level 100 mg/dL Office Visit: 3 MO F/U - Chemistry HDL cholesterol, serum, target level 40 mg/dL triglyceride, target level 150 mg/dL cholesterol, target level 200 mg/dL Office Visit: Follow up hydrodilation - Chemistry RBC, urine, dipstick negative protein, total urine random negative mg/dL Office Visit: Follow up hydrodilation - Urinalysis pH, urine, semiquantitative 5 specific gravity, urine 1.005 urinalysis, routine Clean Catch culture status No ketones, urine, by test strip negative bilirubin, urine negative glucose, urine, semiquantitative negative urine color yellow appearance, urine clear leukocyte esterase, urine, by dipstick negative nitrite, urine, semiquantitative negative urobilinogen, urine, semiquantitative (dipstick) 0.2 protein, urine, semiquantitative (dipstick) negative Office Visit: Follow up IC - Chemistry RBC, urine, dipstick non-hemolyzed trace protein, total urine random negative mg/dL Office Visit: Follow up IC - Urinalysis culture status No ketones, urine, by test strip negative bilirubin, urine negative glucose, urine, semiquantitative negative urinalysis, routine Clean Catch pH, urine, semiquantitative 5 specific gravity, urine 1.020 urine color yellow appearance, urine clear leukocyte esterase, urine, by dipstick negative nitrite, urine, semiquantitative negative urobilinogen, urine, semiquantitative (dipstick) negative protein, urine, semiquantitative (dipstick) negative Encounters Code Encounter Date Provider Facility CPT-92952 Level 3 Est. Patient 17:43:55 COLUMNIST/COMMENTATOR Gab Padron MD [facility] CPT-39731 Level 3 Est. Patient 17:07:49 COLUMNIST/COMMENTATOR Jared Og MD [facility] CPT-11652 Level 4 Est. Patient 19:55:18 COLUMNIST/COMMENTATOR Jared Og MD [facility] CPT-96630 Level 3 Est. Patient 20:13:34 COLUMNIST/COMMENTATOR Jared Og MD [facility] CPT-95918 Level 4 Est. Patient 16:31:27 CDT Gab Padron MD [facility] CPT-65629 Level 2 Est. Patient 12:23:38 CDT Jared Og MD [facility] CPT-99796 Level 3 Est. Patient 11:01:51 CDT Gab Padron MD [facility] CPT-03107 Level 3 Est. Patient 15:27:02 CDT Jared Og MD [facility] CPT-15565 Level 4 Est. Patient 09:25:27 CDT Gab Padron MD [facility] CPT-54140 Level 3 Est. Patient 10:29:41 CDT Rodrigo Sarah [facility] CPT-30461 Level 4 Est. Patient 17:51:05 CDT Gab Padron MD [facility] CPT-86296 Level 3 Est. Patient 14:18:08 CDT Gab Padron MD [facility] CPT-80470 Level 4 Est. Patient 10:18:54 CDT Gab Padron MD [facility] CPT-63271 Level 3 Est. Patient 11:30:07 CDT Rodrigo Sarah [facility] [place] CPT-55933 Level 4 Est. Patient 21:02:30 COLUMNIST/COMMENTATOR Gab Padron MD [facility] CPT-23581 Level 3 Est. Patient 11:02:19 COLUMNIST/COMMENTATOR Gab Padron MD [facility] CPT-83269 Level 4 Est. Patient 22:24:31 COLUMNIST/COMMENTATOR Gab Padron MD [facility] CPT-58720 Level 3 Est. Patient 18:33:46 COLUMNIST/COMMENTATOR Gab Padron MD [facility]-55927 Level 3 Est. Patient 16:19:11 CDT Yolande Lindsay MD [facility]-83582 Level 3 Est. Patient 18:59:14 CDT Yolande Lindsay MD [facility]-43702 Level 4 Est. Patient 21:29:26 CDT Yolande Lindsay MD [facility]-73130 Level 3 Est. Patient 07:37:45 CDT Yolande Lindsay MD [facility]-37256 Level 3 Est. Patient 17:03:46 CDT Yolande Lindsay MD [facility]-88078 Level 4 Est. Patient 20:02:13 COLUMNIST/COMMENTATOR Yolande Lindsay MD [facility]-34980 Level 3 Est. Patient 16:02:07 COLUMNIST/COMMENTATOR Alexis Ordaz MD [facility]-75529 Level 3 Est. Patient 12:41:24 COLUMNIST/COMMENTATOR Yolande Lindsay MD [facility]-23945 Level 3 Est. Patient 15:41:20 COLUMNIST/COMMENTATOR Yolande Lindsay MD [facility]-17047 Level 3 Est. Patient 13:20:02 COLUMNIST/COMMENTATOR Yolande Lindsay MD [facility]-27647 Level 3 Est. Patient 15:00:38 CDT Jared Og MD [facility]-43991 Level 3 Est. Patient 10:22:32 CDT Yolande Lindsay MD [facility]-30050 Level 3 Est. Patient 17:12:58 CDT Yolande Lindsay MD [facility]-67738 Level 4 Est. Patient 13:30:58 CDT Yolande Lindsay MD PhD [facility] CPT-92024 Level 4 New Patient 09:02:42 CDT Jared Og MD [facility]-89830 Level 3 Est. Patient 08:19:07 CDT Yolande Lindsay MD [facility]-32788 Level 3 Est. Patient 12:00:13 COLUMNIST/COMMENTATOR Gab Padron MD [facility]-55855 Level 3 Est. Patient 16:15:23 COLUMNIST/COMMENTATOR Yolande Lindsay MD [facility]-96169 Level 2 Est. Patient 19:47:15 CDT Yolande Lindsay MD [facility]-15466 Level 3 Est. Patient 21:38:31 CDT Yolande Lindsay MD [facility]-89671 Level 3 Est. Patient 10:25:12 CDT Adiel PERAZA [facility] CPT-65977 Level 4 Est. Patient 10:51:58 CDT Yolande Lindsay MD [facility]-42034 Level 3 Est. Patient 14:04:55 COLUMNIST/COMMENTATOR [facility]-15438 Level 3 Est. Patient 10:46:35 COLUMNIST/COMMENTATOR Rodrig[facility]-61171 Level 3 Est. Patient 14:24:37 COLUMNIST/COMMENTATOR Yolande Lindsay MD [facility]-76474 Level 3 Est. Patient 17:41:58 COLUMNIST/COMMENTATOR Yolande Lindsay MD [facility]-65825 Level 2 Est. Patient 22:01:41 COLUMNIST/COMMENTATOR Rodrig[facility]-81324 Level 2 Est. Patient 22:01:11 COLUMNIST/COMMENTATOR [facility] CPT-54752 Level 3 Est. Patient 10:12:29 COLUMNIST/COMMENTATOR [facility] CPT-69336 Level 3 Est. Patient 11:05:44 CDT Alexis Ordaz MD [facility] CPT-36308 Level 3 Est. Patient 14:57:20 CDT Yolande Lindsay MD [facility] CPT-70707 Level 3 Est. Patient 14:40:57 CDT Yolande Lindsay MD [facility] CPT-73535 Level 3 Est. Patient 20:55:40 CDT Yolande Lindsay MD [facility] CPT-46885 Level 3 Est. Patient 12:42:38 COLUMNIST/COMMENTATOR Yolande Lindsay MD [facility] CPT-62821 Level 3 Est. Patient 11:54:49 COLUMNIST/COMMENTATOR Des Hines MD [facility] CPT-57988 Level 3 Est. Patient 17:06:38 CDT Dewayne PERAZA [facility] Procedures Code Procedure Name Date Entry Date Standard Description CPT-31427 Hip, complete, 2-3 views - XRAY USE ONLY 17:19:04 COLUMNIST/COMMENTATOR CPT-27707 Venipuncture Draw Fee 08:37:59 COLUMNIST/COMMENTATOR CPT-84501 Liver Profile - LAB USE ONLY 08:37:59 COLUMNIST/COMMENTATOR CPT-26106 Lipid - LAB USE ONLY 08:37:58 COLUMNIST/COMMENTATOR CPT-55361 First Vx - Ix admin via ID IM or jet injects without counseling by physician 11:52:31 CDT CPT-43450 Fluzone Preservative Free Intramuscular Suspension 11:52 :31 CDT CPT-79857 Foot, left, comp min 3V - XRAY USE ONLY 09:24:54 CDT CPT-48314 Abd single AP View - XRAY USE ONLY 11:16:17 CDT CPT-52316 T spine AP/ Lat - XRAY USE ONLY 09:34:21 CDT CPT-48493 Chest 2V Frontal and Lat - XRAY USE ONLY 10:48:51 CDT CPT-81691 LS spine comp w obliq 13:28:00 COLUMNIST/COMMENTATOR CPT-J1040 Depo Medrol 80 mg (Methyl Prednisolone Acetate) 10:51: 28 COLUMNIST/COMMENTATOR CPT-J1100 Decadron 8mg (Dexamethasone) 10:51:28 COLUMNIST/COMMENTATOR CPT-71065 Abx/Therapy Injection 10:51:28 COLUMNIST/COMMENTATOR CPT-J1100 Decadron 8mg (Dexamethasone) 21:02:30 COLUMNIST/COMMENTATOR CPT-J1040 Depo Medrol 80 mg (Methyl Prednisolone Acetate) 21:02: 30 COLUMNIST/COMMENTATOR [id number] Event Monitor - MC Transmission 09:12:32 CDT 08/06 [id number] Event Monitor - MC review and interp 09:12:32 CDT [id number] Event Monitor - MC recording 09:12:32 CDT CPT-28720 EKG Trac and Interp 16:50:22 CDT CPT-J1030 Depo Medrol 40 mg (Methyl Prednisolone Acetate) 17:05: 54 CDT CPT-J1100 Decadron 4mg (Dexamethasone) 17:05:54 CDT CPT-24137 Abx/Therapy Injection 17:05:54 CDT CPT-J1100 Decadron 4mg (Dexamethasone) 16:55:28 CDT CPT-J1030 Depo Medrol 40 mg (Methyl Prednisolone Acetate) 16:55: 28 CDT CPT-21743 Ankle Complete - Min 3V 15:58:50 CDT CPT-34134 Knee 3V 15:58:50 CDT CPT-05111 Hip comp min 2V 15:58:50 CDT CPT-J2270 Morphine Sulfate 10 mg 14:25:44 COLUMNIST/COMMENTATOR CPT-J2550 Phenergan 12.5 mg (Promethazine) 14:25:44 COLUMNIST/COMMENTATOR CPT-98595 Abx/Therapy Injection 14:25:44 COLUMNIST/COMMENTATOR CPT-J2550 Phenergan 12.5 mg (Promethazine) 14:08:03 COLUMNIST/COMMENTATOR CPT-J2270 Morphine Sulfate 10 mg 14:08:03 COLUMNIST/COMMENTATOR CPT-68579 Bladder Scan 15:00:38 CDT CPT-TCMM Transitional Care Mgmt-Moderate 09:52:22 CDT CPT-J1030 Depo Medrol 40 mg (Methyl Prednisolone Acetate) 10:55: 18 CDT CPT-J1100 Decadron 4mg (Dexamethasone) 10:55:18 CDT CPT-20416 Abx/Therapy Injection 10:55:18 CDT CPT-J1030 Depo Medrol 40 mg (Methyl Prednisolone Acetate) 10:22: 32 CDT CPT-J1100 Decadron 4mg (Dexamethasone) 10:22:32 CDT CPT-17894 Postop F/U Visit 14:37:13 CDT CPT-09843 Ankle Complete - Min 3V 17:11:58 CDT CPT-67433 Foot comp min 3V 17:11:58 CDT CPT-01177 Bladder Scan 09:56:58 CDT CPT-88113 Postop F/U Visit 09:56:58 CDT CPT-68313 Cystoscopy 09:02:42 CDT CPT-61785 Bladder Scan 09:02:42 CDT CPT-63153 Abd single AP View 16:00:35 CDT CPT-15454 Administration single or combination vaccine inc oral 10 :15:43 CDT CPT-46137 Influenza split virus > age 3 10:15:43 CDT CPT-97609 Nail Avulsion 09:24:57 CDT CPT-OV Office Visit 11:15:41 CDT CPT-64303 Abx/Therapy Injection 10:51:30 CDT CPT-J3301 Kenalog 40 mg (Triamcinolone Acetonide) 10:25:12 CDT CPT-J1100 Decadron 4mg (Dexamethasone) 10:25:12 CDT CPT-44600 Anoscopy diagnostic 10:36:12 CDT CPT-OV Office Visit 15:34:31 CDT CPT-80048 Abx/Therapy Injection 08:21:15 COLUMNIST/COMMENTATOR CPT-J1885 Toradol 60 mg (Ketorolac) 10:46:35 COLUMNIST/COMMENTATOR CPT-OV Office Visit 19:51:16 COLUMNIST/COMMENTATOR CPT-58460 Spec Collection and Handling Fee 14:34:18 COLUMNIST/COMMENTATOR CPT-PV Prev. Care Visit 14:19:18 COLUMNIST/COMMENTATOR CPT-12566 Postop F/U Visit 14:47:51 COLUMNIST/COMMENTATOR CPT-16476 Postop F/U Visit 15:15:14 COLUMNIST/COMMENTATOR CPT-66736 Postop F/U Visit 14:41:43 CDT CPT-28244 Postop F/U Visit 15:47:46 CDT CPT-OV Office Visit 15:27:23 CDT CPT-OV Office Visit 17:20:34 CDT CPT-87476 Abx/Therapy Injection 15:05:57 CDT CPT-J1100 Decadron 8mg (Dexamethasone) 14:44:57 CDT CPT-J1040 Depo Medrol 80 mg (Methyl Prednisolone Acetate) 14:44: 57 CDT CPT-JTINJ Joint Injection 10:17:37 CDT CPT-24138 Administration 2+ single or combination vaccines inc oral 13:01:46 COLUMNIST/COMMENTATOR CPT-98883 Administration single or combination vaccine inc oral 13 :01:46 COLUMNIST/COMMENTATOR CPT-51506 Pneumovax 13:01:46 COLUMNIST/COMMENTATOR CPT-78024 Influenza split virus > age 3 13:01:46 COLUMNIST/COMMENTATOR CPT-59488 Administration single or combination vaccine inc oral 08 :56:49 CDT CPT-34623 Tdap 08:56:49 CDT
--- OUTSIDE RECORDS SUMMARY | 2017-03-21 19:39 | XMS REPORT | Clinical Summary ---
Author Author Admin, E Organization [facility] Address Unknown Phone Unavailable Allergies, Adverse Reactions, Alerts Allergy Name Reaction Description Start Date Severity Status Provider VALENTIN Critical Active Rodrigo Fracharlottel [employer] CHLORHEXIDINE GLUCONATE tongue and gums swollen Critical Active Hoa Otto RMA NORFLEX Rash Critical Active Silvestrellina Frazell [employer] TRAZODONE HCL sees things Critical Active Dewayne [...] Unspecified hypothyroidism MUSCLE PAIN 729.1 Resolved Yolande Lnidsay MD PhD Myalgia and myositis, unspecified FISSURE, [...] PhD Internal hemorrhoids with other complication POISON KNUAL DERMATITIS 692.6 Resolved Yolande Lindsay MD PhD [...] MD Lumbago Cough 786.2 Active Jillina Tyrel [employer] Cough 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 Jillina Frazellilian [employer] 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 Anemia 285.9 Active Gab Padron MD Anemia, unspecified Conjunctivitis 372.30 Active Jillnacho Sarah APRN Conjunctivitis, unspecified Sinusitis 473.9 Active Silvestrellina Frazell [employer] Unspecified sinusitis (chronic) Nonspecific syndrome suggestive of viral illness 079.99 Active Jillina Siml [employer] Unspecified viral infection Laryngitis 464.00 Active Jillina Farshadzell [employer] Acute laryngitis without mention of obstruction Abdominal [...] Flank pain, left 789.09 Active Jillina Siml [employer] Abdominal pain, other specified site; multiple sites Abdominal pain, generalized 789.07 Active Jillina Siml [employer] Abdominal pain, generalized Back pain, thoracic region, left 724.1 Active Jillina Farshadzell [employer] Pain in thoracic spine FOOT PAIN, RIGHT ICD-729.5 Inactive Yolande Lindsay [...] ICD-V58.75 04/25 Inactive Yolande Lindsay MD PhD ROUTINE GYNECOLOGICAL [...] MD PhD INGROWN TOENAIL ICD-703.0 Inactive Yolande Lindasy MD PhD Hip pain, left ICD-719.45 Inactive Yolande Lindsay MD PhD Sinusitis, maxillary, acute ICD-461.0 Inactive Yolande Lindsay MD PhD Sinusitis ICD-461.9 Inactive Yolande Lindsay MD PhD Pallor ICD-782.61 Inactive Yolande Lindsay MD PhD 2013 Flank pain, left ICD-789.09 Inactive Yolande Lindsay MD PhD LONG-TERM (CURRENT) USE OF OTHER MEDICATIONS ICD-V58.69 Inactive Yolande Lindsay MD PhD Hematuria ICD-599.70 [...] TBDP 1 po q6hr PRN Nausea ONDANSETRON 92467897454 Active Jillina Frazell [employer] Active IBUPROFEN 600 MG TAB 1 tablet by mouth every 6 hours for 7 days, then 1 tablet every 6 hours as needed. Take with food IBUPROFEN 77253970674 Active Jillina Frazell [employer] Active BACTRIM DS 800-160 MG TAB 1 tab by mouth twice daily TRIMETHOPRIM-SULFAMETHOXAZOLE 80544958340 No Longer Active Gab Padron MD Active ADVAIR DISKUS 250-50 MCG/DOSE AEPB 1 puff BID FLUTICASONE- SALMETEROL 76232080786 Active Jillina Frazell [employer] Active LEVOTHYROXINE SODIUM 75 MCG TABS Take 1 tab daily LEVOTHYROXINE SODIUM 72180323717 No Longer Active Mariana FLEMING Active SYNTHROID 88 MCG ORAL TABS Take one by mouth daily LEVOTHYROXINE SODIUM 43723572460 Active Mariana FLEMING Active CHERATUSSIN AC 100-10 MG/5ML SYRP 1 tsp by mouth every 4 hours as needed for cough GUAIFENESIN-CODEINE 45834156159 No Longer Active Gab Padron MD Active POLYTRIM 37506-7.1 UNIT/ML-% SOLN 1 gtt to affected eye q3h x 7 days POLYMYXIN B-TRIMETHOPRIM 15553007480 No Longer Active Gab Padron MD Active FLUTICASONE PROPIONATE 50 MCG/ACT SUSP 1 to 2 sprays each nostril daily 04/21 FLUTICASONE PROPIONATE 06319380272 No Longer Active Gab Padron MD Active TRILEPTAL 600 MG TABS Take one 1 tablet in Am and 1 tablet at night OXCARBAZEPINE 88896221606 Active Gab Padron MD Active CEFDINIR 300 MG CAPS 1 po BID x 10 days CEFDINIR 80943248618 No Longer Active Rodrigo Sarah APRN Active CEFTIN 500 MG TAB 1 twice a day CEFUROXIME AXETIL 92845366284 No Longer Active Gab Padron MD Active AZITHROMYCIN 250 MG TABS 2 po qd x 1 day, then 1 po qd x 4 days AZITHROMYCIN 26400038996 No Longer Active Rodrigo Sarah APRN Active CLARITIN 10 MG TAB 1 tablet by mouth daily as needed for allergies LORATADINE 12294734876 Active Rodrigo Sarah APRN Active OXYCODONE HCL 5 MG ORAL CAPS 1 TAB PO Q HS OXYCODONE HCL 66566827864 No Longer Active Rodrigo Sarah APRN Active NIASPAN 500 MG ORAL CR-TABS 1 pill nightly x 1 week, then 2 pills nightly x 1 week, then 3 pills nightly x 1 week, then 4 pills nightly NIACIN (ANTIHYPERLIPIDEMIC) 51261204882 No Longer Active Rodrigo Sarah APRN Active NIACIN 500 MG TABS 1 pill by mouth nightly x 1 week, then 2 pills x 1 week, then 3 pills x 1 week, then 4 pills nightly - take after evening meal, with applesauce or an apple NIACIN 88699476233 No Longer Active Yolande Lindsay MD PhD Active FISH OIL 1000 MG CAPS 3 pills daily OMEGA-3 FATTY ACIDS 58486849134 Active Yolande Lindsay MD PhD Active TRIAMCINOLONE ACETONIDE 0.1 % CREA apply bid sparingly to rash TRIAMCINOLONE ACETONIDE 80479653524 Active Yolande Lindsay MD PhD Active FUROSEMIDE 20 MG TAB 1 tablet by mouth daily FUROSEMIDE 91431052449 Active Tisha Lambert [employer] Active LISINOPRIL 20 MG ORAL TABS 1 tab by mouth daily LISINOPRIL 50775681546 Active Gab Padron MD Active FUROSEMIDE 20 MG TABS 1 pill by mouth daily, for edema FUROSEMIDE 02071625734 No Longer Active Yolande Lindsay MD PhD Active ATORVASTATIN CALCIUM 10 MG TABS 1 pill by mouth daily, for cholesterol 09/06 ATORVASTATIN CALCIUM 27338531910 Active Gab Padron MD Active CALCIUM 600+D PLUS MINERALS 600-400 MG-UNIT ORAL CHEW 1 tab by mouth daily CALCIUM CARBONATE-VIT D-MIN 36871453268 No Longer Active Yolande Lindsay MD PhD Active CYCLOBENZAPRINE HCL 10 MG TABS 1 tablet by mouth three times daily as needed for muscle spasm/pain CYCLOBENZAPRINE HCL 14730503647 Active Yolande Lindsay MD PhD Active ONDANSETRON 4 MG TBDP 1 q4h PRN nausea ONDANSETRON 61511573404 Active Yolande Lindsay MD PhD Active ADULT ASPIRIN EC LOW STRENGTH 81 MG TBEC Take 1 tablet by mouth daily 2014 ASPIRIN 77344753742 No Longer Active Yolande Lindsay MD PhD Active ZOFRAN ODT 4 MG TBDP 1 pill dissolved by mouth every 4 hours if needed for nausea ONDANSETRON 03218881142 No Longer Active Yolande Lindsay MD PhD Active CEFTIN 500 MG TAB 1 twice a day CEFUROXIME AXETIL 99892375103 No Longer Active Yolande Lindsay MD PhD Active ALBUTEROL SULFATE 0.083 % NEBU SOLN one vial per nebulizer every 4-6 hours as needed ALBUTEROL SULFATE 64030422883 No Longer Active Alexis Ordaz MD Active DOXYCYCLINE HYCLATE 100 MG CAP 1 cap by mouth twice daily DOXYCYCLINE HYCLATE 79161552155 No Longer Active Yolande Lindsay MD PhD Active CYCLOBENZAPRINE HCL 10 MG TABS 1/2 - 1 tab by mouth three times daily if needed for spasms/pain CYCLOBENZAPRINE HCL 34240494402 No Longer Active Yolande Lindsay MD PhD Active AZITHROMYCIN 250 MG TABS 2 pills on day 1, then 1 pill daily x 4 days AZITHROMYCIN 13089100903 No Longer Active Yolande Lindsay MD PhD Active XOPENEX 1.25 MG/3ML NEBU 1 neb every 4 hours if needed for cough/congestion LEVALBUTEROL HCL 38474241907 No Longer Active Yolande Lindsay MD PhD Active DOXYCYCLINE HYCLATE 100 MG TAB 1 tab twice a day for 14 days 2013 DOXYCYCLINE HYCLATE 57254396871 No Longer Active Yolande Lindsay MD PhD Active PREVACID 30 MG CPDR Take 1 tablet by mouth daily-PRN LANSOPRAZOLE 44453978888 No Longer Active Yolande Lindsay MD PhD Active PA VITAMIN D-3 2000 UNIT CAPS 1 CAP PO DAILY CHOLECALCIFEROL 41346737835 No Longer Active Yolande Lindsay MD PhD Active CEFDINIR 300 MG CAPS by mouth twice a day CEFDINIR 96305842803 No Longer Active Gab Padron MD Active TOPAMAX 50 MG TABS 1 PO twice daily TOPIRAMATE 69612846995 Active Yolande Lindsay MD PhD Active AZITHROMYCIN 250 MG TABS 2 po qd x 1 day, then 1 po qd x 4 days AZITHROMYCIN 04721490465 No Longer Active Yolande Lindsay MD PhD Active DICLOFENAC SODIUM 75 MG TBEC 1 tablet by q 12 hours PRN headaches DICLOFENAC SODIUM 58848316542 No Longer Active Yolande Lindsay MD PhD Active FLONASE 50 MCG/ACT SUSP 1 spray each nostril am and hs FLUTICASONE PROPIONATE 40269858078 No Longer Active Todd Callaway MD Active ANUSOL-HC 25 MG SUPPOSITORY 1 rectally twice a day as needed for hemorrhoids HYDROCORTISONE JAYDEN (RECTAL) 96767250543 No Longer Active Yolande Lindsay MD PhD Active ANUSOL-HC 25 MG SUPPOSITORY 1 suppository rectally each evening as needed for anal fissure HYDROCORTISONE JAYDEN (RECTAL) 18616751549 No Longer Active LONNIE Iglesias Active VALIUM 5 MG TAB 1 po 30 minutes prior to your MRI DIAZEPAM 37760114659 No Longer Active LONNIE Iglesias Active METHOCARBAMOL 750 MG TABS 1 PO QID PRN METHOCARBAMOL 17604183675 No Longer Active Daphne Wetzel [employer] Active NITROSTAT 0.4 MG SUBL as directed NITROGLYCERIN 04994261859 No Longer Active Rodrigo Sarah APRN Active ROBAXIN-750 750 MG TABS 2 four times a day for 3 days as needed for muscle spasm, then 1 four times a day as needed METHOCARBAMOL 16664832694 No Longer Active Rodrigo Sarah APRN Active HYDROCODONE-ACETAMINOPHEN 5-325 MG TABS 1 q 4-6 hrs prn HYDROCODONE-ACETAMINOPHEN 87219202453 No Longer Active Silvestrellnacho Sarah APRN Active VERAPAMIL HCL CR 180 MG CR-TABS TAKE 1 TAB DAILY VERAPAMIL HCL 88869113408 No Longer Active Yolande Lindsay MD PhD Active BACTRIM DS 800-160 MG TAB 1 tab by mouth twice daily TRIMETHOPRIM-SULFAMETHOXAZOLE 85749527173 No Longer Active Yolande Lindsay MD PhD Active NEXIUM 40 MG PACK 1 by mouth daily ESOMEPRAZOLE MAGNESIUM 76613247052 No Longer Active Des Hines MD Active EPIPEN 2-CHARLETTE 0.3 MG/0.3ML OMARI as need for allergic reaction EPINEPHRINE 09440873128 Active Yolande Lindsay MD PhD Active NEXIUM 40 MG CPDR 1 PO Q D DAY ESOMEPRAZOLE MAGNESIUM 21039615021 No Longer Active Sadia Perry RN Active NEXIUM 40 MG PACK 1 by mouth daily NEXIUM 40 MG PACK ESOMEPRAZOLE MAGNESIUM Inactive VERAPAMIL HCL CR 180 MG CR-TABS TAKE 1 TAB DAILY VERAPAMIL HCL CR 180 MG CR-TABS VERAPAMIL HCL Inactive HYDROCODONE-ACETAMINOPHEN 5-325 MG TABS 1 q 4-6 hrs prn HYDROCODONE-ACETAMINOPHEN 5-325 MG TABS 017953 HYDROCODONE-ACETAMINOPHEN Inactive ROBAXIN-750 750 MG TABS 2 four times a day for 3 days as needed for muscle spasm, then 1 four times a day as needed ROBAXIN-750 750 MG TABS 326085 METHOCARBAMOL Inactive NITROSTAT 0.4 MG SUBL as directed NITROSTAT 0.4 MG SUBL NITROGLYCERIN Inactive METHOCARBAMOL 750 MG TABS 1 PO QID PRN METHOCARBAMOL 750 MG TABS 493494 METHOCARBAMOL Inactive VALIUM 5 MG TAB 1 po 30 minutes prior to your MRI VALIUM 5 MG TAB 999705 DIAZEPAM Inactive ANUSOL-HC 25 MG SUPPOSITORY 1 suppository rectally each evening as needed for anal fissure ANUSOL-HC 25 MG SUPPOSITORY 1745470 HYDROCORTISONE JAYDEN (RECTAL) Inactive ANUSOL-HC 25 MG SUPPOSITORY 1 rectally twice a day as needed for hemorrhoids ANUSOL-HC 25 MG SUPPOSITORY 6698175 HYDROCORTISONE JAYDEN (RECTAL) Inactive FLONASE 50 MCG/ACT SUSP 1 spray each nostril am and hs FLONASE 50 MCG/ACT SUSP FLUTICASONE PROPIONATE Inactive DICLOFENAC SODIUM 75 MG TBEC 1 tablet by q 12 hours PRN headaches DICLOFENAC SODIUM 75 MG TBEC 790308 DICLOFENAC SODIUM Inactive PA VITAMIN D-3 2000 UNIT CAPS 1 CAP PO DAILY PA VITAMIN D-3 2000 UNIT CAPS CHOLECALCIFEROL Inactive PREVACID 30 MG CPDR Take 1 tablet by mouth daily-PRN PREVACID 30 MG CPDR 373645 LANSOPRAZOLE Inactive DOXYCYCLINE HYCLATE 100 MG TAB 1 tab twice a day for 14 days 2013 DOXYCYCLINE HYCLATE 100 MG TAB 3362936 DOXYCYCLINE HYCLATE Inactive XOPENEX 1.25 MG/3ML NEBU 1 neb every 4 hours if needed for cough/congestion XOPENEX 1.25 MG/3ML NEBU 483793 LEVALBUTEROL HCL Inactive CYCLOBENZAPRINE HCL 10 MG TABS 1/2 - 1 tab by mouth three times daily if needed for spasms/pain CYCLOBENZAPRINE HCL 10 MG TABS 213884 CYCLOBENZAPRINE HCL Inactive ALBUTEROL SULFATE 0.083 % NEBU SOLN one vial per nebulizer every 4-6 hours as needed ALBUTEROL SULFATE 0.083 % NEBU SOLN 515920 ALBUTEROL SULFATE Inactive CEFTIN 500 MG TAB 1 twice a day CEFTIN 500 MG TAB 496238 CEFUROXIME AXETIL Inactive ZOFRAN ODT 4 MG TBDP 1 pill dissolved by mouth every 4 hours if needed for nausea ZOFRAN ODT 4 MG TBDP 748754 ONDANSETRON Inactive ADULT ASPIRIN EC LOW STRENGTH 81 MG TBEC Take 1 tablet by mouth daily 2014 ADULT ASPIRIN EC LOW STRENGTH 81 MG TBEC 349144 ASPIRIN Inactive CALCIUM 600+D PLUS MINERALS 600-400 [...] or an apple NIACIN 500 MG TABS 654261 NIACIN Inactive NIASPAN 500 MG ORAL CR-TABS 1 pill nightly x 1 week, then 2 pills nightly x 1 week, then 3 pills nightly x 1 week, then 4 pills nightly NIASPAN 500 MG ORAL CR-TABS NIACIN (ANTIHYPERLIPIDEMIC) Inactive OXYCODONE HCL 5 MG ORAL CAPS 1 TAB PO Q HS OXYCODONE HCL 5 MG ORAL CAPS 3514029 OXYCODONE HCL Inactive FLUTICASONE PROPIONATE 50 MCG/ACT SUSP 1 to 2 sprays each nostril daily 04/21 FLUTICASONE PROPIONATE 50 MCG/ACT SUSP 191122 FLUTICASONE PROPIONATE Inactive POLYTRIM 56436-0.1 UNIT/ML-% SOLN 1 gtt to affected eye q3h x 7 days POLYTRIM 60760-3.1 UNIT/ML-% SOLN 372032 POLYMYXIN B- TRIMETHOPRIM Inactive CHERATUSSIN AC 100-10 MG/5ML SYRP 1 tsp by mouth every 4 hours as needed for cough CHERATUSSIN AC 100-10 MG/5ML SYRP 121705 GUAIFENESIN-CODEINE Inactive LEVOTHYROXINE SODIUM 75 MCG TABS Take 1 tab daily LEVOTHYROXINE SODIUM 75 MCG TABS 381408 LEVOTHYROXINE SODIUM Inactive BACTRIM DS 800-160 MG TAB 1 tab by mouth twice daily BACTRIM DS 800-160 MG TAB 808246 TRIMETHOPRIM-SULFAMETHOXAZOLE Inactive AZITHROMYCIN 250 MG TABS 2 po qd x 1 day, then 1 po qd x 4 days AZITHROMYCIN 250 MG TABS 4057239 AZITHROMYCIN Inactive CEFDINIR 300 MG CAPS by mouth twice a day CEFDINIR 300 MG CAPS 290910 CEFDINIR Inactive AZITHROMYCIN 250 MG TABS 2 pills on day 1, then 1 pill daily x 4 days AZITHROMYCIN 250 MG TABS 1605832 AZITHROMYCIN Inactive DOXYCYCLINE HYCLATE 100 MG CAP 1 cap by mouth twice daily DOXYCYCLINE HYCLATE 100 MG CAP 6488967 DOXYCYCLINE HYCLATE Inactive FUROSEMIDE 20 MG TABS 1 pill by mouth daily, for edema FUROSEMIDE 20 MG TABS 619310 FUROSEMIDE Inactive AZITHROMYCIN 250 MG TABS 2 po qd x 1 day, then 1 po qd x 4 days AZITHROMYCIN 250 MG TABS 5551169 AZITHROMYCIN Inactive CEFTIN 500 MG TAB 1 twice a day CEFTIN 500 MG TAB 889260 CEFUROXIME AXETIL Inactive CEFDINIR 300 MG CAPS 1 po BID x 10 days CEFDINIR 300 MG CAPS 004470 CEFDINIR Inactive BACTRIM DS 800-160 MG TAB 1 tab by mouth twice daily BACTRIM DS 800-160 MG TAB 260343 TRIMETHOPRIM-SULFAMETHOXAZOLE Inactive Immunizations Vaccine Administration Date Value Standard Description Seasonal influenza vaccine, injectable, containing preservative, for > 3 years old (Afluria, FluLaval, Fluzone, Fluvirin, Fluarix, Agriflu(>=18 yo)) Fluzone (>3 yrs.) [UEV241] Influenza, seasonal, injectable influenza immunization (Flu Vax) has been administered Influenza - Unspecified Formulation [CVX88] influenza virus vaccine, unspecified formulation Seasonal influenza vaccine, injectable, containing preservative, for > 3 years old (Afluria, FluLaval, Fluzone, Fluvirin, Fluarix, Agriflu(>=18 yo)) Fluzone (>3 yrs.) [FJZ760] Influenza, seasonal, injectable pneumococcal immunization administered Pneumovax 23 [CVX33] pneumococcal polysaccharide vaccine, 23 valent dT (Diphtheria and Tetanus) booster given given Td(adult) unspecified formulation Boostrix (Tetanus toxoid, reduced diphtheria toxoid and acellular pertussis vaccine, adsorbed), booster Boostrix [QOJ072] tetanus toxoid, reduced diphtheria toxoid, and acellular [...] Panel - Chemistry sodium, serum 142 mmol/L 495-540 3906/06/30 potassium, serum 4.4 mmol/L 3.5-5.2 chloride, serum 108 mmol/L 98-107 carbon dioxide, venous blood 25.1 mmol/L 21.0-32.0 blood glucose 82 mg/dL 65-110 calcium, serum 9.1 mg/dL 8.5-10.1 urea nitrogen, blood 18 mg/dL 7-18 creatinine, serum 1.31 mg/dL 0.55-1.30 Lab Report: [facility] Advanced Lipid and Inlammation Panel /23401 - Chemistry cholesterol, serum 148 mg/dL 954-988 0114/09/02 HDL cholesterol, serum 55 mg/dL > OR=46 [...] (L) - Chemistry sodium, serum 145 mmol/L 902-115 4803/09/02 potassium, serum 4.6 mmol/L 3.5-5.2 chloride, serum [...] Rate - Chemistry sodium, serum 139 mmol/L 611-930 7700/03/24 carbon dioxide, venous blood 22.4 mmol/L 21.0-32.0 [...] ... - Chemistry sodium, serum 143 mmol/L 667-192 3357/05/02 carbon dioxide, venous blood 25.6 mmol/L 21.0-32.0 [...] Negative mg/dL Negative sodium, serum 142 mmol/L 985-225 2127/07/18 carbon dioxide, venous blood 27.8 mmol/L 21.0-32.0 [...] mg/dL Encounters Code Encounter Date Provider Facility CPT-03333 Level 3 Est. Patient 10:29:41 CDT Rodrigo Sarah [facility] CPT-48181 Level 4 Est. Patient 17:51:05 CDT Gab Padron MD [facility] CPT-33640 Level 3 Est. Patient 14:18:08 CDT Gab Padron MD [facility] CPT-95547 Level 4 Est. Patient 10:18:54 CDT Gab Padron MD [facility] CPT-38387 Level 3 Est. Patient 11:30:07 CDT Rodrigo Sarah [facility] CPT-08080 Level 4 Est. Patient 21:02:30 [employer] Gab Padron MD [facility] CPT-79930 Level 3 Est. Patient 11:02:19 [employer] Gab Padron MD [facility] CPT-82618 Level 4 Est. Patient 22:24:31 [employer] Gab Padron MD [facility] CPT-05327 Level 3 Est. Patient 18:33:46 [employer] Gab Padron MD [facility] CPT-32621 Level 3 Est. Patient 16:19:11 CDT Yolande Lindsay MD, PhD [facility] CPT-54532 Level 3 Est. Patient 18:59:14 CDT Yolande Lindsay MD [facility] CPT-55754 Level 4 Est. Patient 21:29:26 CDT Yolande Lindsay MD [facility]-01210 Level 3 Est. Patient 07:37:45 CDT Yolande Lindsay MD [facility]-64641 Level 3 Est. Patient 17:03:46 CDT Yolande Lindsay MD [facility]-29959 Level 4 Est. Patient 20:02:13 [employer] Yolande Lindsay MD [facility]-09333 Level 3 Est. Patient 16:02:07 [employer] Alexis Ordaz MD [facility]-51601 Level 3 Est. Patient 12:41:24 [employer] Yolande Lindsay MD [facility]-20406 Level 3 Est. Patient 15:41:20 [employer] Yolande Lindsay MD [facility]-58221 Level 3 Est. Patient 13:20:02 [employer] Yolande Lindsay MD [facility]-52859 Level 3 Est. Patient 15:00:38 CDT Jared Og MD [facility]-28153 Level 3 Est. Patient 10:22:32 CDT Yolande Lindsay MD [facility] CPT-31474 Level 3 Est. Patient 17:12:58 CDT Yolande Lindsay MD [facility]-58670 Level 4 Est. Patient 13:30:58 CDT Yolande Lindsay MD [facility] CPT-31713 Level 4 New Patient 09:02:42 CDT Jared Og MD [facility]-81485 Level 3 Est. Patient 08:19:07 CDT Yolande Lindsay MD [facility]-81238 Level 3 Est. Patient 12:00:13 [employer] Gab Padron MD [facility]-47875 Level 3 Est. Patient 16:15:23 [employer] Yolande Lindsay MD [facility]11575 Level 2 Est. Patient 19:47:15 CDT Yolande Lindsay MD [facility]-45081 Level 3 Est. Patient 21:38:31 CDT Yolande Lindsay MD [facility]-96978 Level 3 Est. Patient 10:25:12 CDT Adiel PERAZA [facility]-67823 Level 4 Est. Patient 10:51:58 CDT Yolande Lindsay MD [facility]-58757 Level 3 Est. Patient 14:04:55 [employer] Rodrigo Sarah [facility]-89018 Level 3 Est. Patient 10:46:35 [employer] Rodrigo Sarah [facility]-41858 Level 3 Est. Patient 14:24:37 [employer] Yolande Lindsay MD [facility]-54696 Level 3 Est. Patient 17:41:58 [employer] Yolande Lindsay MD [facility]-11746 Level 2 Est. Patient 22:01:41 [employer] Rodrigo Sarah [facility]-42690 Level 2 Est. Patient 22:01:11 [employer] Rodrigo Sarah [facility]-14125 Level 3 Est. Patient 10:12:29 [employer] Rodrigo Sarah [facility]-25272 Level 3 Est. Patient 11:05:44 CDT Alexis Ordaz MD [facility] CPT-25390 Level 3 Est. Patient 14:57:20 CDT Yolande Lindsay MD [facility] CPT-38081 Level 3 Est. Patient 14:40:57 CDT Yolande Lindsay MD [facility] CPT-05108 Level 3 Est. Patient 20:55:40 CDT Yolande Lindsay MD [facility] CPT-49529 Level 3 Est. Patient 12:42:38 [employer] Yolande Lindsay MD [facility] CPT-51365 Level 3 Est. Patient 11:54:49 [employer] Des Hines MD [facility] CPT-84431 Level 3 Est. Patient 17:06:38 CDT Dewayne PERAZA [facility] Procedures Code Procedure Name Date Entry Date Standard Description CPT-48558 Chest 2V Frontal and Lat - XRAY USE ONLY 10:48:51 CDT CPT-83530 LS spine comp w obliq 13:28:00 [employer] CPT-J1040 Depo Medrol 80 mg (Methyl Prednisolone Acetate) 10:51: 28 [employer] CPT-J1100 Decadron 8mg (Dexamethasone) 10:51:28 [employer] CPT-23239 Abx/Therapy Injection 10:51:28 [employer] CPT-J1100 Decadron 8mg (Dexamethasone) 21:02:30 [employer] CPT-J1040 Depo Medrol 80 mg (Methyl Prednisolone Acetate) 21:02: 30 [employer] [id number] Event Monitor - MC Transmission 09:12:32 CDT 08/06 [id number] Event Monitor - MC review and interp 09:12:32 CDT [id number] Event Monitor - MC recording 09:12:32 CDT CPT-60776 EKG Trac and Interp 16:50:22 CDT CPT-J1030 Depo Medrol 40 mg (Methyl Prednisolone Acetate) 17:05: 54 CDT CPT-J1100 Decadron 4mg (Dexamethasone) 17:05:54 CDT CPT-16329 Abx/Therapy Injection 17:05:54 CDT CPT-J1100 Decadron 4mg (Dexamethasone) 16:55:28 CDT CPT-J1030 Depo Medrol 40 mg (Methyl Prednisolone Acetate) 16:55: 28 CDT CPT-82507 Ankle Complete - Min 3V 15:58:50 CDT CPT-00872 Knee 3V 15:58:50 CDT CPT-28364 Hip comp min 2V 15:58:50 CDT CPT-J2270 Morphine Sulfate 10 mg 14:25:44 [employer] CPT-J2550 Phenergan 12.5 mg (Promethazine) 14:25:44 [employer] CPT-75403 Abx/Therapy Injection 14:25:44 [employer] CPT-J2550 Phenergan 12.5 mg (Promethazine) 14:08:03 [employer] CPT-J2270 Morphine Sulfate 10 mg 14:08:03 [employer] CPT-13301 Bladder Scan 15:00:38 CDT CPT-TCMM Transitional Care Mgmt-Moderate 09:52:22 CDT CPT-J1030 Depo Medrol 40 mg (Methyl Prednisolone Acetate) 10:55: 18 CDT CPT-J1100 Decadron 4mg (Dexamethasone) 10:55:18 CDT CPT-52853 Abx/Therapy Injection 10:55:18 CDT CPT-J1030 Depo Medrol 40 mg (Methyl Prednisolone Acetate) 10:22: 32 CDT CPT-J1100 Decadron 4mg (Dexamethasone) 10:22:32 CDT CPT-34132 Postop F/U Visit 14:37:13 CDT CPT-64180 Ankle Complete - Min 3V 17:11:58 CDT CPT-64982 Foot comp min 3V 17:11:58 CDT CPT-01153 Bladder Scan 09:56:58 CDT CPT-94639 Postop F/U Visit 09:56:58 CDT CPT-98396 Cystoscopy 09:02:42 CDT CPT-05671 Bladder Scan 09:02:42 CDT CPT-90981 Abd single AP View 16:00:35 CDT CPT-28573 Administration single or combination vaccine inc oral 10 :15:43 CDT CPT-74680 Influenza split virus > age 3 10:15:43 CDT CPT-75521 Nail Avulsion 09:24:57 CDT CPT-OV Office Visit 11:15:41 CDT CPT-30491 Abx/Therapy Injection 10:51:30 CDT CPT-J3301 Kenalog 40 mg (Triamcinolone Acetonide) 10:25:12 CDT CPT-J1100 Decadron 4mg (Dexamethasone) 10:25:12 CDT CPT-42224 Anoscopy diagnostic 10:36:12 CDT CPT-OV Office Visit 15:34:31 CDT CPT-97601 Abx/Therapy Injection 08:21:15 [employer] CPT-J1885 Toradol 60 mg (Ketorolac) 10:46:35 [employer] CPT-OV Office Visit 19:51:16 [employer] CPT-08666 Spec Collection and Handling Fee 14:34:18 [employer] CPT-PV Prev. Care Visit 14:19:18 [employer] CPT-04318 Postop F/U Visit 14:47:51 [employer] CPT-64353 Postop F/U Visit 15:15:14 [employer] CPT-16082 Postop F/U Visit 14:41:43 CDT CPT-73220 Postop F/U Visit 15:47:46 CDT CPT-OV Office Visit 15:27:23 CDT CPT-OV Office Visit 17:20:34 CDT CPT-47343 Abx/Therapy Injection 15:05:57 CDT CPT-J1100 Decadron 8mg (Dexamethasone) 14:44:57 CDT CPT-J1040 Depo Medrol 80 mg (Methyl Prednisolone Acetate) 14:44: 57 CDT CPT-JTINJ Joint Injection 10:17:37 CDT CPT-35107 Administration 2+ single or combination vaccines inc oral 13:01:46 [employer] CPT-21081 Administration single or combination vaccine inc oral 13 :01:46 [employer] CPT-60257 Pneumovax 13:01:46 [employer] CPT-05703 Influenza split virus > age 3 13:01:46 [employer] CPT-83699 Administration single or combination vaccine inc oral 08 :56:49 CDT CPT-75263 Tdap 08:56:49 CDT
--- OUTSIDE RECORDS SUMMARY | 2017-03-21 19:40 | XMS REPORT | Clinical Summary ---
Author Author Admin, MARGRET Organization [employer] Address Unknown Phone Unavailable Allergies, Adverse Reactions, Alerts Allergy Name Reaction Description Start Date Severity Status Provider VALENTIN Critical Active Rodrigo Montemayorl INTERACTIVE MEDIA DESIGNER CHLORHEXIDINE GLUCONATE tongue and gums swollen Critical Active Hoa Kabaford RMA NORFLEX Rash Critical Active Silvestrellina Frazell INTERACTIVE MEDIA DESIGNER TRAZODONE HCL sees things Critical Active Dewayne [...] infarction, hx of 412 Active Hoa Otto [facility] Old myocardial infarction Pelvic pain 789.09 Active Yolande Lindsay MD PhD Abdominal pain, other specified site; multiple sites Edema 782.3 Active Yolande Lindsay MD PhD Edema Rash 782.1 Active Yolande Lindsay MD PhD Rash and other nonspecific skin eruption Back pain, lumbar 724.2 Active Gab Padron MD Lumbago Cough 786.2 Active Jillina Tyrel INTERACTIVE MEDIA DESIGNER Cough 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 Jillina Frazellilian INTERACTIVE MEDIA DESIGNER 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 Anemia 285.9 Active Gab Padron MD Anemia, unspecified Conjunctivitis 372.30 Active Jillina Tyrel INTERACTIVE MEDIA DESIGNER Conjunctivitis, unspecified Sinusitis 473.9 Active Jillina Frazell INTERACTIVE MEDIA DESIGNER Unspecified sinusitis (chronic) Nonspecific syndrome suggestive of viral illness 079.99 Active Rodrigo Sarah APRN Unspecified viral infection Laryngitis 464.00 Active Rodrigo Sarah APRN Acute laryngitis without mention of obstruction FOOT PAIN, RIGHT ICD-729.5 Inactive Yolande Lindsay [...] Generic Name NDC Status Provider Patient Instruction ADVAIR DISKUS 250-50 MCG/DOSE AEPB 1 puff BID FLUTICASONE- SALMETEROL 13299277753 Active Rodrigo Sarah INTERACTIVE MEDIA DESIGNER Active LEVOTHYROXINE SODIUM 75 MCG TABS Take 1 tab daily LEVOTHYROXINE SODIUM 75175002468 No Longer Active Mariana Cuadra RMA Active SYNTHROID 88 MCG ORAL TABS Take one by mouth daily LEVOTHYROXINE SODIUM 04637892003 Active Mariana Cuadra RMA Active CHERATUSSIN AC 100-10 MG/5ML SYRP 1 tsp by mouth every 4 hours as needed for cough GUAIFENESIN-CODEINE 58051872890 No Longer Active Gab Padron MD Active POLYTRIM 90941-6.1 UNIT/ML-% SOLN 1 gtt to affected eye q3h x 7 days POLYMYXIN B-TRIMETHOPRIM 68140784102 No Longer Active Gab Padron MD Active FLUTICASONE PROPIONATE 50 MCG/ACT SUSP 1 to 2 sprays each nostril daily 04/21 FLUTICASONE PROPIONATE 19327856150 No Longer Active Gab Padron MD Active TRILEPTAL 600 MG TABS Take one 1 tablet in Am and 1 tablet at night OXCARBAZEPINE 75358940188 Active Gab Padron MD Active CEFDINIR 300 MG CAPS 1 po BID x 10 days CEFDINIR 42189092553 No Longer Active Rodrigo Sarah APRN Active CEFTIN 500 MG TAB 1 twice a day CEFUROXIME AXETIL 95353483515 No Longer Active Gab Padron MD Active AZITHROMYCIN 250 MG TABS 2 po qd x 1 day, then 1 po qd x 4 days AZITHROMYCIN 51762351250 No Longer Active Rodrigo Sarah APRN Active CLARITIN 10 MG TAB 1 tablet by mouth daily as needed for allergies LORATADINE 25444119656 Active Silvestrellnacho Sarah APRN Active OXYCODONE HCL 5 MG ORAL CAPS 1 TAB PO Q HS OXYCODONE HCL 59519993690 No Longer Active Rodrigo Sarah APRN Active NIASPAN 500 MG ORAL CR-TABS 1 pill nightly x 1 week, then 2 pills nightly x 1 week, then 3 pills nightly x 1 week, then 4 pills nightly NIACIN (ANTIHYPERLIPIDEMIC) 69234254078 No Longer Active Rodrigo Sarah APRN Active NIACIN 500 MG TABS 1 pill by mouth nightly x 1 week, then 2 pills x 1 week, then 3 pills x 1 week, then 4 pills nightly - take after evening meal, with applesauce or an apple NIACIN 89693555333 No Longer Active Yolande Lindsay MD PhD Active FISH OIL 1000 MG CAPS 3 pills daily OMEGA-3 FATTY ACIDS 06150194078 Active Yolande Lindsay MD PhD Active TRIAMCINOLONE ACETONIDE 0.1 % CREA apply bid sparingly to rash TRIAMCINOLONE ACETONIDE 68053113739 Active Yolande Lindsay MD PhD Active FUROSEMIDE 20 MG TAB 1 tablet by mouth daily FUROSEMIDE 58295896526 Active Tisha Lambert APRN Active LISINOPRIL 20 MG ORAL TABS 1 tab by mouth daily LISINOPRIL 87098466371 Active Gab Padron MD Active FUROSEMIDE 20 MG TABS 1 pill by mouth daily, for edema FUROSEMIDE 99000650725 No Longer Active Yolande Lindsay MD PhD Active ATORVASTATIN CALCIUM 10 MG TABS 1 pill by mouth daily, for cholesterol 09/06 ATORVASTATIN CALCIUM 47283094398 Active Tisha Lambert APRN Active CALCIUM 600+D PLUS MINERALS 600-400 MG-UNIT ORAL CHEW 1 tab by mouth daily CALCIUM CARBONATE-VIT D-MIN 03301632297 No Longer Active Yolande Lindsay MD PhD Active CYCLOBENZAPRINE HCL 10 MG TABS 1 tablet by mouth three times daily as needed for muscle spasm/pain CYCLOBENZAPRINE HCL 89705576542 Active Yolande Lindsay MD PhD Active ONDANSETRON 4 MG TBDP 1 q4h PRN nausea ONDANSETRON 43609673964 Active Yolande Lindsay MD PhD Active ADULT ASPIRIN EC LOW STRENGTH 81 MG TBEC Take 1 tablet by mouth daily 2014 ASPIRIN 83759215506 No Longer Active Yolande Lindsay MD PhD Active ZOFRAN ODT 4 MG TBDP 1 pill dissolved by mouth every 4 hours if needed for nausea ONDANSETRON 05258261359 No Longer Active Yolande Lindsay MD PhD Active CEFTIN 500 MG TAB 1 twice a day CEFUROXIME AXETIL 43975533426 No Longer Active Yolande Lindsay MD PhD Active ALBUTEROL SULFATE 0.083 % NEBU SOLN one vial per nebulizer every 4-6 hours as needed ALBUTEROL SULFATE 94075795279 No Longer Active Alexis Ordaz MD Active DOXYCYCLINE HYCLATE 100 MG CAP 1 cap by mouth twice daily DOXYCYCLINE HYCLATE 62268866080 No Longer Active Yolande Lindsay MD PhD Active CYCLOBENZAPRINE HCL 10 MG TABS 1/2 - 1 tab by mouth three times daily if needed for spasms/pain CYCLOBENZAPRINE HCL 40836627075 No Longer Active Yolande Lindsay MD PhD Active AZITHROMYCIN 250 MG TABS 2 pills on day 1, then 1 pill daily x 4 days AZITHROMYCIN 68435275611 No Longer Active Yolande Lindsay MD PhD Active XOPENEX 1.25 MG/3ML NEBU 1 neb every 4 hours if needed for cough/congestion LEVALBUTEROL HCL 89092564353 No Longer Active Yolande Lindsay MD PhD Active DOXYCYCLINE HYCLATE 100 MG TAB 1 tab twice a day for 14 days 2013 DOXYCYCLINE HYCLATE 37768196290 No Longer Active Yolande Lindsay MD PhD Active PREVACID 30 MG CPDR Take 1 tablet by mouth daily-PRN LANSOPRAZOLE 80763136572 No Longer Active Yolande Lindsay MD PhD Active PA VITAMIN D-3 2000 UNIT CAPS 1 CAP PO DAILY CHOLECALCIFEROL 60578658936 No Longer Active Yolande Lindsay MD PhD Active CEFDINIR 300 MG CAPS by mouth twice a day CEFDINIR 72558630715 No Longer Active Gab Padron MD Active TOPAMAX 50 MG TABS 1 PO twice daily TOPIRAMATE 85836027578 Active Yolande Lindsay MD PhD Active AZITHROMYCIN 250 MG TABS 2 po qd x 1 day, then 1 po qd x 4 days AZITHROMYCIN 81319434793 No Longer Active Yolande Lindsay MD PhD Active DICLOFENAC SODIUM 75 MG TBEC 1 tablet by q 12 hours PRN headaches DICLOFENAC SODIUM 27710697992 No Longer Active Yolande Lindsay MD PhD Active FLONASE 50 MCG/ACT SUSP 1 spray each nostril am and hs FLUTICASONE PROPIONATE 17703478787 No Longer Active Todd Callaway MD Active ANUSOL-HC 25 MG SUPPOSITORY 1 rectally twice a day as needed for hemorrhoids HYDROCORTISONE JAYDEN (RECTAL) 59418693027 No Longer Active Yolande Lindsay MD PhD Active ANUSOL-HC 25 MG SUPPOSITORY 1 suppository rectally each evening as needed for anal fissure HYDROCORTISONE JAYDEN (RECTAL) 12769186866 No Longer Active LONNIE Iglesias Active VALIUM 5 MG TAB 1 po 30 minutes prior to your MRI DIAZEPAM 83375174938 No Longer Active LONNIE Iglesias Active METHOCARBAMOL 750 MG TABS 1 PO QID PRN METHOCARBAMOL 81510785180 No Longer Active Daphne Wetzel APRN Active NITROSTAT 0.4 MG SUBL as directed NITROGLYCERIN 27236007983 No Longer Active Rodrigo Sarah APRN Active ROBAXIN-750 750 MG TABS 2 four times a day for 3 days as needed for muscle spasm, then 1 four times a day as needed METHOCARBAMOL 58532500574 No Longer Active Rodrigo Sarah APRN Active HYDROCODONE-ACETAMINOPHEN 5-325 MG TABS 1 q 4-6 hrs prn HYDROCODONE-ACETAMINOPHEN 71431257419 No Longer Active Rodrigo Sarah APRN Active VERAPAMIL HCL CR 180 MG CR-TABS TAKE 1 TAB DAILY VERAPAMIL HCL 40836032261 No Longer Active Yolande Lindsay MD PhD Active BACTRIM DS 800-160 MG TAB 1 tab by mouth twice daily TRIMETHOPRIM-SULFAMETHOXAZOLE 40473401782 No Longer Active Yolande Lindsay MD PhD Active NEXIUM 40 MG PACK 1 by mouth daily ESOMEPRAZOLE MAGNESIUM 36364883283 No Longer Active Des Hines MD Active EPIPEN 2-CHARLETTE 0.3 MG/0.3ML OMARI as need for allergic reaction EPINEPHRINE 49690862981 Active Yolande Lindsay MD PhD Active NEXIUM 40 MG CPDR 1 PO Q D DAY ESOMEPRAZOLE MAGNESIUM 76651104683 No Longer Active Sadia Morochoten RN Active NEXIUM 40 MG PACK 1 by mouth daily NEXIUM 40 MG PACK ESOMEPRAZOLE MAGNESIUM Inactive VERAPAMIL HCL CR 180 MG CR-TABS TAKE 1 TAB DAILY VERAPAMIL HCL CR 180 MG CR-TABS VERAPAMIL HCL Inactive HYDROCODONE-ACETAMINOPHEN 5-325 MG TABS 1 q 4-6 hrs prn HYDROCODONE-ACETAMINOPHEN 5-325 MG TABS 410984 HYDROCODONE-ACETAMINOPHEN Inactive ROBAXIN-750 750 MG TABS 2 four times a day for 3 days as needed for muscle spasm, then 1 four times a day as needed ROBAXIN-750 750 MG TABS 497077 METHOCARBAMOL Inactive NITROSTAT 0.4 MG SUBL as directed NITROSTAT 0.4 MG SUBL NITROGLYCERIN Inactive METHOCARBAMOL 750 MG TABS 1 PO QID PRN METHOCARBAMOL 750 MG TABS 471333 METHOCARBAMOL Inactive VALIUM 5 MG TAB 1 po 30 minutes prior to your MRI VALIUM 5 MG TAB 176532 DIAZEPAM Inactive ANUSOL-HC 25 MG SUPPOSITORY 1 suppository rectally each evening as needed for anal fissure ANUSOL-HC 25 MG SUPPOSITORY 5904725 HYDROCORTISONE JAYDEN (RECTAL) Inactive ANUSOL-HC 25 MG SUPPOSITORY 1 rectally twice a day as needed for hemorrhoids ANUSOL-HC 25 MG SUPPOSITORY 0403578 HYDROCORTISONE JAYDEN (RECTAL) Inactive FLONASE 50 MCG/ACT SUSP 1 spray each nostril am and hs FLONASE 50 MCG/ACT SUSP FLUTICASONE PROPIONATE Inactive DICLOFENAC SODIUM 75 MG TBEC 1 tablet by q 12 hours PRN headaches DICLOFENAC SODIUM 75 MG TBEC 335881 DICLOFENAC SODIUM Inactive PA VITAMIN D-3 2000 UNIT CAPS 1 CAP PO DAILY PA VITAMIN D-3 2000 UNIT CAPS CHOLECALCIFEROL Inactive PREVACID 30 MG CPDR Take 1 tablet by mouth daily-PRN PREVACID 30 MG CPDR 491314 LANSOPRAZOLE Inactive DOXYCYCLINE HYCLATE 100 MG TAB 1 tab twice a day for 14 days 2013 DOXYCYCLINE HYCLATE 100 MG TAB 2530348 DOXYCYCLINE HYCLATE Inactive XOPENEX 1.25 MG/3ML NEBU 1 neb every 4 hours if needed for cough/congestion XOPENEX 1.25 MG/3ML NEBU 412067 LEVALBUTEROL HCL Inactive CYCLOBENZAPRINE HCL 10 MG TABS 1/2 - 1 tab by mouth three times daily if needed for spasms/pain CYCLOBENZAPRINE HCL 10 MG TABS 502532 CYCLOBENZAPRINE HCL Inactive ALBUTEROL SULFATE 0.083 % NEBU SOLN one vial per nebulizer every 4-6 hours as needed ALBUTEROL SULFATE 0.083 % NEBU SOLN 506084 ALBUTEROL SULFATE Inactive CEFTIN 500 MG TAB 1 twice a day CEFTIN 500 MG TAB 464031 CEFUROXIME AXETIL Inactive ZOFRAN ODT 4 MG TBDP 1 pill dissolved by mouth every 4 hours if needed for nausea ZOFRAN ODT 4 MG TBDP 530398 ONDANSETRON Inactive ADULT ASPIRIN EC LOW STRENGTH 81 MG TBEC Take 1 tablet by mouth daily 2014 ADULT ASPIRIN EC LOW STRENGTH 81 MG TBEC 658943 ASPIRIN Inactive CALCIUM 600+D PLUS MINERALS 600-400 [...] or an apple NIACIN 500 MG TABS 528076 NIACIN Inactive NIASPAN 500 MG ORAL CR-TABS 1 pill nightly x 1 week, then 2 pills nightly x 1 week, then 3 pills nightly x 1 week, then 4 pills nightly NIASPAN 500 MG ORAL CR-TABS NIACIN (ANTIHYPERLIPIDEMIC) Inactive OXYCODONE HCL 5 MG ORAL CAPS 1 TAB PO Q HS OXYCODONE HCL 5 MG ORAL CAPS 7626477 OXYCODONE HCL Inactive FLUTICASONE PROPIONATE 50 MCG/ACT SUSP 1 to 2 sprays each nostril daily 04/21 FLUTICASONE PROPIONATE 50 MCG/ACT SUSP 231298 FLUTICASONE PROPIONATE Inactive POLYTRIM 05882-9.1 UNIT/ML-% SOLN 1 gtt to affected eye q3h x 7 days POLYTRIM 95327-7.1 UNIT/ML-% SOLN 049905 POLYMYXIN B- TRIMETHOPRIM Inactive CHERATUSSIN AC 100-10 MG/5ML SYRP 1 tsp by mouth every 4 hours as needed for cough CHERATUSSIN AC 100-10 MG/5ML SYRP 363306 GUAIFENESIN-CODEINE Inactive LEVOTHYROXINE SODIUM 75 MCG TABS Take 1 tab daily LEVOTHYROXINE SODIUM 75 MCG TABS 354140 LEVOTHYROXINE SODIUM Inactive BACTRIM DS 800-160 MG TAB 1 tab by mouth twice daily BACTRIM DS 800-160 MG TAB 205199 TRIMETHOPRIM-SULFAMETHOXAZOLE Inactive AZITHROMYCIN 250 MG TABS 2 po qd x 1 day, then 1 po qd x 4 days AZITHROMYCIN 250 MG TABS 6948638 AZITHROMYCIN Inactive CEFDINIR 300 MG CAPS by mouth twice a day CEFDINIR 300 MG CAPS 193911 CEFDINIR Inactive AZITHROMYCIN 250 MG TABS 2 pills on day 1, then 1 pill daily x 4 days AZITHROMYCIN 250 MG TABS 1433121 AZITHROMYCIN Inactive DOXYCYCLINE HYCLATE 100 MG CAP 1 cap by mouth twice daily DOXYCYCLINE HYCLATE 100 MG CAP 8199838 DOXYCYCLINE HYCLATE Inactive FUROSEMIDE 20 MG TABS 1 pill by mouth daily, for edema FUROSEMIDE 20 MG TABS 508551 FUROSEMIDE Inactive AZITHROMYCIN 250 MG TABS 2 po qd x 1 day, then 1 po qd x 4 days AZITHROMYCIN 250 MG TABS 6626860 AZITHROMYCIN Inactive CEFTIN 500 MG TAB 1 twice a day CEFTIN 500 MG TAB 595875 CEFUROXIME AXETIL Inactive CEFDINIR 300 MG CAPS 1 po BID x 10 days CEFDINIR 300 MG CAPS 055218 CEFDINIR Inactive Immunizations Vaccine Administration Date Value Standard Description Seasonal influenza vaccine, injectable, containing preservative, for > 3 years old (Afluria, FluLaval, Fluzone, Fluvirin, Fluarix, Agriflu(>=18 yo)) Fluzone (>3 yrs.) [[id number]] Influenza, seasonal, injectable influenza immunization (Flu Vax) has been administered Influenza - Unspecified Formulation [CVX88] influenza virus vaccine, unspecified formulation Seasonal influenza vaccine, injectable, containing preservative, for > 3 years old (Afluria, FluLaval, Fluzone, Fluvirin, Fluarix, Agriflu(>=18 yo)) Fluzone (>3 yrs.) [VRE529] Influenza, seasonal, injectable pneumococcal immunization administered Pneumovax 23 [CVX33] pneumococcal polysaccharide vaccine, 23 valent dT (Diphtheria and Tetanus) booster given given Td(adult) unspecified formulation Boostrix (Tetanus toxoid, reduced diphtheria toxoid and acellular pertussis vaccine, adsorbed), booster Boostrix [ZSC166] tetanus toxoid, reduced diphtheria toxoid, and acellular pertussis vaccine, adsorbed Vital Signs Date Name Value Unit Range Description blood pressure, diastolic - 8462-4 78 mm[Hg] [...] E&M - 3141-9 233.8 [lb_av] Weight Measured blood pressure, diastolic - 8462-4 75 mm[Hg] BP weldon blood pressure, systolic - 8480-6 126 mm[Hg] BP sys pulse rate E&M - 8867-4 66 /min Heart rate temperature E&M 99.3 [degF] Body temperature weight E&M - 3141-9 237 [lb_av] Weight Measured blood pressure, diastolic - 8462-4 70 mm[Hg] BP weldon blood pressure, systolic - 8480-6 120 mm[Hg] BP sys pulse rate E&M - 8867-4 62 /min Heart rate temperature E&M 98.3 [degF] Body temperature weight E&M - 3141-9 238.8 [lb_av] Weight Measured Diagnostic Results Date Name Value Unit Range Description Chart Maintenance: Outside labs entered on flowsheet - Chemistry sodium, serum 143 mmol/L potassium, serum 4.2 mmol/L blood glucose 85 mg/dL creatinine, serum 1.38 mg/dL Chart Maintenance: Outside labs entered on flowsheet - Hematology leukocyte count, blood 6.1 10*3/mm3 hemoglobin, blood 11.0 g/dL platelet count 175 10*3/mm3 Lab Report: Basic Metabolic Panel - Chemistry sodium, serum 145 mmol/L 694-472 2895/06/22 potassium, serum 3.9 mmol/L 3.5-5.2 chloride, serum 109 mmol/L 98-107 carbon dioxide, venous blood 23.4 mmol/L 21.0-32.0 blood glucose 92 mg/dL 65-110 calcium, serum 8.2 mg/dL 8.5-10.1 urea nitrogen, blood 24 mg/dL 7-18 creatinine, serum 1.30 mg/dL 0.60-1.30 Lab Report: Cardio IQ Advanced Lipid and Inlammation Panel /45771 - Chemistry cholesterol, serum 198 mg/dL 339-107 8952/04/30 HDL cholesterol, serum 65 mg/dL > OR=46 triglyceride, serum, fasting 82 mg/dL LDL cholesterol, serum 117 mg/dL cholesterol/HDL ratio, serum 3.0 calc < OR=5.0 cholesterol, serum 148 mg/dL 803-851 6953/09/02 HDL cholesterol, serum 55 mg/dL > OR=46 [...] (L) - Chemistry sodium, serum 145 mmol/L 533-400 6966/09/02 potassium, serum 4.6 mmol/L 3.5-5.2 chloride, serum [...] Rate - Chemistry sodium, serum 139 mmol/L 096-845 9040/03/24 carbon dioxide, venous blood 22.4 mmol/L 21.0-32.0 potassium, serum 4.2 mmol/L 3.5-5.2 chloride, serum 105 mmol/L 98-107 blood glucose 90 mg/dL 65-110 urea nitrogen, blood 19 mg/dL 7-18 creatinine, serum 1.35 mg/dL 0.55-1.30 alanine aminotransferase (SGPT), serum 33 U/L 12-78 aspartate aminotransferase (SGOT), serum 23 U/L 15-37 calcium, serum 8.3 mg/dL 8.5-10.1 bilirubin, serum, total 0.20 mg/dL 0.00-1.00 Lab Report: Lipid Panel - Chemistry triglyceride, serum, fasting 51 mg/dL 30-200 cholesterol, serum 173 mg/dL 704-900 9171/04/28 HDL cholesterol, serum 63 mg/dL 32-96 LDL cholesterol, serum 100 mg/dL 0-130 Lab Report: Lipid Panel, HEPATIC PANEL, MICROALBUMIN - Chemistry aspartate aminotransferase (SGOT), serum 16 U/L 15-37 alanine aminotransferase (SGPT), serum 19 U/L 12-78 bilirubin, serum, total 0.30 mg/dL 0.00-1.00 albumin/creatinine ratio, urine < 30 mg/g mg/g{creat} 0-29 Lab Report: Lipid Panel, HEPATIC PANEL, MICROALBUMIN - Lab microalbumin, urine 10 0-19 Lab Report: TIERA INFLUENZA A/B - Toxicology rapid flu test Negative Negative;Positive Lab Report: Thyroid Stimulating Hormone (L), Free Thyroxine (L) - Chemistry TSH 1.08 m[iU]/mL 0.36-3.74 thyroxine, serum, free 0.75 ng/dL 0.76-1.46 Office Visit: 3 MO F/U - Chemistry cholesterol, target level 200 mg/dL LDL target level 100 mg/dL HDL cholesterol, serum, target level 40 mg/dL triglyceride, target level 150 mg/dL Office Visit: GET EST - Chemistry cholesterol, target level 200 mg/dL LDL target level 100 mg/dL HDL cholesterol, serum, target level 40 mg/dL triglyceride, target level 150 mg/dL Encounters Code Encounter Date Provider Facility CPT-72025 Level 3 Est. Patient 11:30:07 CDT Rodrigo Sarah APRN [facility] CPT-38366 Level 4 Est. Patient 21:02:30 ELECTRONICS MECHANIC Gab Padron MD [facility] CPT-16581 Level 3 Est. Patient 11:02:19 ELECTRONICS MECHANIC Gab Padron MD [facility] CPT-97786 Level 4 Est. Patient 22:24:31 ELECTRONICS MECHANIC Gab Padron MD [facility] CPT-79152 Level 3 Est. Patient 18:33:46 ELECTRONICS MECHANIC Gab Padron MD [facility] CPT-54805 Level 3 Est. Patient 16:19:11 CDT Yolande Lindsay MD [facility] CPT-78995 Level 3 Est. Patient 18:59:14 CDT Yolande Lindsay MD [facility] CPT-52903 Level 4 Est. Patient 21:29:26 CDT Yolande Lindsay MD PhD [facility] CPT-42494 Level 3 Est. Patient 07:37:45 CDT Yolande Lindsay MD PhD [facility] CPT-16495 Level 3 Est. Patient 17:03:46 CDT Yolande Lindsay MD [facility]-44228 Level 4 Est. Patient 20:02:13 ELECTRONICS MECHANIC Yolande Lindsay MD [facility]-51397 Level 3 Est. Patient 16:02:07 ELECTRONICS MECHANIC Alexis Ordaz MD [facility]-70920 Level 3 Est. Patient 12:41:24 ELECTRONICS MECHANIC Yolande Lindsay MD [facility]-30808 Level 3 Est. Patient 15:41:20 ELECTRONICS MECHANIC Yolande Lindsay MD [facility]-21103 Level 3 Est. Patient 13:20:02 ELECTRONICS MECHANIC Yolande Lindsay MD [facility]-08095 Level 3 Est. Patient 15:00:38 CDT Jared Og MD [facility]-73881 Level 3 Est. Patient 10:22:32 CDT Yolande Lindsay MD [facility] CPT-35388 Level 3 Est. Patient 17:12:58 CDT Yolande Lindsay MD [facility]-64031 Level 4 Est. Patient 13:30:58 CDT Yolande Lindsay MD [facility] CPT-69247 Level 4 New Patient 09:02:42 CDT Jared Og MD [facility]-21827 Level 3 Est. Patient 08:19:07 CDT Yolande Lindsay MD [facility]-94876 Level 3 Est. Patient 12:00:13 ELECTRONICS MECHANIC Gab Padron MD [facility]-03630 Level 3 Est. Patient 16:15:23 ELECTRONICS MECHANIC Yolande Lindsay MD [facility]-71928 Level 2 Est. Patient 19:47:15 CDT Yolande Lindsay MD [facility]-68934 Level 3 Est. Patient 21:38:31 CDT Yolande Lindsay MD [facility]-14497 Level 3 Est. Patient 10:25:12 CDT Adiel PERAZA [facility] CPT-47200 Level 4 Est. Patient 10:51:58 CDT Yolande Lindsay MD [facility]-81570 Level 3 Est. Patient 14:04:55 ELECTRONICS MECHANIC Rodrigo Sarah [facility]-39190 Level 3 Est. Patient 10:46:35 ELECTRONICS MECHANIC Rodrigo Sarah [facility]-78445 Level 3 Est. Patient 14:24:37 ELECTRONICS MECHANIC Yolande Lindsay MD [facility]-56049 Level 3 Est. Patient 17:41:58 ELECTRONICS MECHANIC Yolande Lindsay MD [facility]-26052 Level 2 Est. Patient 22:01:41 ELECTRONICS MECHANIC Rodrigo Sarah [facility]-55479 Level 2 Est. Patient 22:01:11 ELECTRONICS MECHANIC Rodrigo Sarah [facility] CPT-75036 Level 3 Est. Patient 10:12:29 ELECTRONICS MECHANIC Rodrigo Sarah [facility] CPT-78809 Level 3 Est. Patient 11:05:44 CDT Alexis Ordaz MD [facility] CPT-06502 Level 3 Est. Patient 14:57:20 CDT Yolande Lindsay MD [facility]-10603 Level 3 Est. Patient 14:40:57 CDT Yolande Lindsay MD [facility]-65510 Level 3 Est. Patient 20:55:40 CDT Yolande Lindsay MD PhD [facility] CPT-02949 Level 3 Est. Patient 12:42:38 ELECTRONICS MECHANIC Yolande Lindsay MD PhD [facility] CPT-02144 Level 3 Est. Patient 11:54:49 ELECTRONICS MECHANIC Des Hines MD [facility] CPT-94884 Level 3 Est. Patient 17:06:38 CDT Dewayne PERAZA [facility] Procedures Code Procedure Name Date Entry Date Standard Description CPT-45548 LS spine comp w obliq 13:28:00 ELECTRONICS MECHANIC CPT-J1040 Depo Medrol 80 mg (Methyl Prednisolone Acetate) 10:51: 28 ELECTRONICS MECHANIC CPT-J1100 Decadron 8mg (Dexamethasone) 10:51:28 ELECTRONICS MECHANIC CPT-56837 Abx/Therapy Injection 10:51:28 ELECTRONICS MECHANIC CPT-J1100 Decadron 8mg (Dexamethasone) 21:02:30 ELECTRONICS MECHANIC CPT-J1040 Depo Medrol 80 mg (Methyl Prednisolone Acetate) 21:02: 30 ELECTRONICS MECHANIC [id number] Event Monitor - MC Transmission 09:12:32 CDT 08/06 [id number] Event Monitor - MC review and interp 09:12:32 CDT [id number] Event Monitor - MC recording 09:12:32 CDT CPT-86124 EKG Trac and Interp 16:50:22 CDT CPT-J1030 Depo Medrol 40 mg (Methyl Prednisolone Acetate) 17:05: 54 CDT CPT-J1100 Decadron 4mg (Dexamethasone) 17:05:54 CDT CPT-31708 Abx/Therapy Injection 17:05:54 CDT CPT-J1100 Decadron 4mg (Dexamethasone) 16:55:28 CDT CPT-J1030 Depo Medrol 40 mg (Methyl Prednisolone Acetate) 16:55: 28 CDT CPT-78216 Ankle Complete - Min 3V 15:58:50 CDT CPT-60407 Knee 3V 15:58:50 CDT CPT-22570 Hip comp min 2V 15:58:50 CDT CPT-J2270 Morphine Sulfate 10 mg 14:25:44 ELECTRONICS MECHANIC CPT-J2550 Phenergan 12.5 mg (Promethazine) 14:25:44 ELECTRONICS MECHANIC CPT-69323 Abx/Therapy Injection 14:25:44 ELECTRONICS MECHANIC CPT-J2550 Phenergan 12.5 mg (Promethazine) 14:08:03 ELECTRONICS MECHANIC CPT-J2270 Morphine Sulfate 10 mg 14:08:03 ELECTRONICS MECHANIC CPT-41910 Bladder Scan 15:00:38 CDT CPT-TCMM Transitional Care Mgmt-Moderate 09:52:22 CDT CPT-J1030 Depo Medrol 40 mg (Methyl Prednisolone Acetate) 10:55: 18 CDT CPT-J1100 Decadron 4mg (Dexamethasone) 10:55:18 CDT CPT-43197 Abx/Therapy Injection 10:55:18 CDT CPT-J1030 Depo Medrol 40 mg (Methyl Prednisolone Acetate) 10:22: 32 CDT CPT-J1100 Decadron 4mg (Dexamethasone) 10:22:32 CDT CPT-79898 Postop F/U Visit 14:37:13 CDT CPT-88554 Ankle Complete - Min 3V 17:11:58 CDT CPT-07855 Foot comp min 3V 17:11:58 CDT CPT-77134 Bladder Scan 09:56:58 CDT CPT-76682 Postop F/U Visit 09:56:58 CDT CPT-28227 Cystoscopy 09:02:42 CDT CPT-70549 Bladder Scan 09:02:42 CDT CPT-65830 Abd single AP View 16:00:35 CDT CPT-76682 Administration single or combination vaccine inc oral 10 :15:43 CDT CPT-39804 Influenza split virus > age 3 10:15:43 CDT CPT-71602 Nail Avulsion 09:24:57 CDT CPT-OV Office Visit 11:15:41 CDT CPT-51741 Abx/Therapy Injection 10:51:30 CDT CPT-J3301 Kenalog 40 mg (Triamcinolone Acetonide) 10:25:12 CDT CPT-J1100 Decadron 4mg (Dexamethasone) 10:25:12 CDT CPT-41103 Anoscopy diagnostic 10:36:12 CDT CPT-OV Office Visit 15:34:31 CDT CPT-68598 Abx/Therapy Injection 08:21:15 [employer] CPT-J1885 Toradol 60 mg (Ketorolac) 10:46:35 [employer] CPT-OV Office Visit 19:51:16 [employer] CPT-02915 Spec Collection and Handling Fee 14:34:18 [employer] CPT-PV Prev. Care Visit 14:19:18 [employer] CPT-72785 Postop F/U Visit 14:47:51 [employer] CPT-98478 Postop F/U Visit 15:15:14 [employer] CPT-09977 Postop F/U Visit 14:41:43 CDT CPT-69075 Postop F/U Visit 15:47:46 CDT CPT-OV Office Visit 15:27:23 CDT CPT-OV Office Visit 17:20:34 CDT CPT-31393 Abx/Therapy Injection 15:05:57 CDT CPT-J1100 Decadron 8mg (Dexamethasone) 14:44:57 CDT CPT-J1040 Depo Medrol 80 mg (Methyl Prednisolone Acetate) 14:44: 57 CDT CPT-JTINJ Joint Injection 10:17:37 CDT CPT-08571 Administration 2+ single or combination vaccines inc oral 13:01:46 [employer] CPT-40231 Administration single or combination vaccine inc oral 13 :01:46 [employer] CPT-34858 Pneumovax 13:01:46 [employer] CPT-93625 Influenza split virus > age 3 13:01:46 [employer] CPT-82367 Administration single or combination vaccine inc oral 08 :56:49 CDT CPT-78243 Tdap 08:56:49 CDT
--- OUTSIDE RECORDS SUMMARY | 2017-03-21 19:42 | XMS REPORT | Clinical Summary ---
Author Author Admin, MARGRET Organization [place] Address Unknown Phone Unavailable Allergies, Adverse Reactions, Alerts Allergy Name Reaction Description Start Date Severity Status Provider VALENTIN Critical Active Rodrigo Montemayorl [employer] CHLORHEXIDINE GLUCONATE tongue and gums swollen Critical Active Hoa Kabaford RMA NORFLEX Rash Critical Active Rowenaina Farshadzell [employer] TRAZODONE HCL sees things Critical Active Dewayne [...] infarction, hx of 412 Active Hoa Otto [facility] Old myocardial infarction Pelvic pain 789.09 Active Yolande Lindsay MD PhD Abdominal pain, other specified site; multiple sites Edema 782.3 Active Yolande Lindsay MD PhD Edema Rash 782.1 Active Yolande Lindsay MD PhD Rash and other nonspecific skin eruption Back pain, lumbar 724.2 Active Gab Padron MD Lumbago Cough 786.2 Active Jillina Tyrel [employer] Cough 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 Jillina Frazellilian [employer] 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 Anemia 285.9 Active Gab Padron MD Anemia, unspecified Conjunctivitis 372.30 Active Jillina Tyrel [employer] Conjunctivitis, unspecified Sinusitis 473.9 Active Jillina Frazell [employer] Unspecified sinusitis (chronic) Nonspecific syndrome suggestive of viral illness 079.99 Active Rodrigo Sarah APRN Unspecified viral infection Laryngitis 464.00 Active Jillina Tyrel [employer] Acute laryngitis without mention of obstruction Abdominal pain 789.00 Active Gba Padron MD Abdominal pain, unspecified site Chest [...] sites Abdominal pain, generalized 789.07 Active Rodrigo Sarah APRN Abdominal pain, generalized Back pain, thoracic [...] Padron MD Lump or mass in breast FOOT PAIN, RIGHT ICD-729.5 Inactive Yolande Lindsay [...] MUSCULOSKEL SYSTEM NEC ICD-V58.78 02/06 Inactive Todd Callwaay MD FREQUENCY, URINARY ICD-788.41 Inactive Yolande Lindsay [...] Yolande Lindsay MD PhD HEADACHE ICD-784.0 Inactive Yloande Lindsay MD PhD OTHER DISORDER OF COCCYX [...] Instructions Start Date Stop Date Generic Name ND Status Provider Patient Instruction PREDNISONE 20 MG TAB 2 tabs daily for 3 days, 1 tab daily for 3 days, 1/2 tab daily for 2 days PREDNISONE 15670647900 No Longer Active Gab Padron MD Active ZOFRAN ODT 4 MG TBDP 1 po q6hr PRN Nausea ONDANSETRON 68017614707 Active Jillina Frazell [employer] Active IBUPROFEN 600 MG TAB 1 tablet by mouth every 6 hours for 7 days, then 1 tablet every 6 hours as needed. Take with food IBUPROFEN 95641992584 Active Jillina Frazell [employer] Active BACTRIM DS 800-160 MG TAB 1 tab by mouth twice daily TRIMETHOPRIM-SULFAMETHOXAZOLE 42868438742 No Longer Active Gab Padron MD Active ADVAIR DISKUS 250-50 MCG/DOSE AEPB 1 puff BID FLUTICASONE- SALMETEROL 12122601069 Active Rodrigo Sarah APRN Active LEVOTHYROXINE SODIUM 75 MCG TABS Take 1 tab daily LEVOTHYROXINE SODIUM 64858547494 No Longer Active Mariana Medellinelise HICKEYA Active SYNTHROID 88 MCG ORAL TABS Take one by mouth daily LEVOTHYROXINE SODIUM 06677871079 Active Tisha Lambert APRN Active CHERATUSSIN AC 100-10 MG/5ML SYRP 1 tsp by mouth every 4 hours as needed for cough GUAIFENESIN-CODEINE 01136390928 No Longer Active Gab Padron MD Active POLYTRIM 92973-2.1 UNIT/ML-% SOLN 1 gtt to affected eye q3h x 7 days POLYMYXIN B-TRIMETHOPRIM 76292073155 No Longer Active Gab Padron MD Active FLUTICASONE PROPIONATE 50 MCG/ACT SUSP 1 to 2 sprays each nostril daily 04/21 FLUTICASONE PROPIONATE 11538191921 No Longer Active Gab Padron MD Active TRILEPTAL 600 MG TABS Take one 1 tablet in Am and 1 tablet at night OXCARBAZEPINE 21024150182 Active Gab Padron MD Active CEFDINIR 300 MG CAPS 1 po BID x 10 days CEFDINIR 62453468920 No Longer Active Rodrigo Sarah APRN Active CEFTIN 500 MG TAB 1 twice a day CEFUROXIME AXETIL 79128213774 No Longer Active Gab Padron MD Active AZITHROMYCIN 250 MG TABS 2 po qd x 1 day, then 1 po qd x 4 days AZITHROMYCIN 08917968823 No Longer Active Rodrigo Sarah APRN Active CLARITIN 10 MG TAB 1 tablet by mouth daily as needed for allergies LORATADINE 06836536957 Active Rodrigo Sarah APRN Active OXYCODONE HCL 5 MG ORAL CAPS 1 TAB PO Q HS OXYCODONE HCL 46472015756 No Longer Active Rodrigo Sarah APRN Active NIASPAN 500 MG ORAL CR-TABS 1 pill nightly x 1 week, then 2 pills nightly x 1 week, then 3 pills nightly x 1 week, then 4 pills nightly NIACIN (ANTIHYPERLIPIDEMIC) 95367310273 No Longer Active Rodrigo Sarah APRN Active NIACIN 500 MG TABS 1 pill by mouth nightly x 1 week, then 2 pills x 1 week, then 3 pills x 1 week, then 4 pills nightly - take after evening meal, with applesauce or an apple NIACIN 64049495760 No Longer Active Yolande Lindsay MD PhD Active FISH OIL 1000 MG CAPS 3 pills daily OMEGA-3 FATTY ACIDS 13696844653 Active Yolande Lindsay MD PhD Active TRIAMCINOLONE ACETONIDE 0.1 % CREA apply bid sparingly to rash TRIAMCINOLONE ACETONIDE 85589252285 Active Yolande Lindsay MD PhD Active FUROSEMIDE 20 MG TAB 1 tablet by mouth daily FUROSEMIDE 50827972915 Active Tisha Lambert APRN Active LISINOPRIL 20 MG ORAL TABS 1 tab by mouth daily LISINOPRIL 00775374682 Active Tisha Lambert APRN Active FUROSEMIDE 20 MG TABS 1 pill by mouth daily, for edema FUROSEMIDE 61448169419 No Longer Active Yolande Lindsay MD PhD Active ATORVASTATIN CALCIUM 10 MG TABS 1 pill by mouth daily, for cholesterol 09/06 ATORVASTATIN CALCIUM 06667555172 Active Tisha Lambert APRN Active CALCIUM 600+D PLUS MINERALS 600-400 MG-UNIT ORAL CHEW 1 tab by mouth daily CALCIUM CARBONATE-VIT D-MIN 87472630768 No Longer Active Yolande Lindsay MD PhD Active CYCLOBENZAPRINE HCL 10 MG TABS 1 tablet by mouth three times daily as needed for muscle spasm/pain CYCLOBENZAPRINE HCL 96680869558 Active Yolande Lindsay MD PhD Active ONDANSETRON 4 MG TBDP 1 q4h PRN nausea ONDANSETRON 22282934438 Active Yolande Lindsay MD PhD Active ADULT ASPIRIN EC LOW STRENGTH 81 MG TBEC Take 1 tablet by mouth daily 2014 ASPIRIN 27886358665 No Longer Active Yolande Lindsay MD PhD Active ZOFRAN ODT 4 MG TBDP 1 pill dissolved by mouth every 4 hours if needed for nausea ONDANSETRON 37683950306 No Longer Active Yolande Lindsay MD PhD Active CEFTIN 500 MG TAB 1 twice a day CEFUROXIME AXETIL 08650441773 No Longer Active Yolande Lindsay MD PhD Active ALBUTEROL SULFATE 0.083 % NEBU SOLN one vial per nebulizer every 4-6 hours as needed ALBUTEROL SULFATE 53783901639 No Longer Active Alexis Ordaz MD Active DOXYCYCLINE HYCLATE 100 MG CAP 1 cap by mouth twice daily DOXYCYCLINE HYCLATE 88099635488 No Longer Active Yolande Lindsay MD PhD Active CYCLOBENZAPRINE HCL 10 MG TABS 1/2 - 1 tab by mouth three times daily if needed for spasms/pain CYCLOBENZAPRINE HCL 00535336619 No Longer Active Yolande Lindsay MD PhD Active AZITHROMYCIN 250 MG TABS 2 pills on day 1, then 1 pill daily x 4 days AZITHROMYCIN 99726628981 No Longer Active Yolande Lindsay MD PhD Active XOPENEX 1.25 MG/3ML NEBU 1 neb every 4 hours if needed for cough/congestion LEVALBUTEROL HCL 94362285012 No Longer Active Yolande Lindsay MD PhD Active DOXYCYCLINE HYCLATE 100 MG TAB 1 tab twice a day for 14 days 2013 DOXYCYCLINE HYCLATE 80340488598 No Longer Active Yolande Lindsay MD PhD Active PREVACID 30 MG CPDR Take 1 tablet by mouth daily-PRN LANSOPRAZOLE 23009201929 No Longer Active Yolande Lindsay MD PhD Active PA VITAMIN D-3 2000 UNIT CAPS 1 CAP PO DAILY CHOLECALCIFEROL 42174107407 No Longer Active Yolande Lindsay MD PhD Active CEFDINIR 300 MG CAPS by mouth twice a day CEFDINIR 27922827257 No Longer Active Gab Padron MD Active TOPAMAX 50 MG TABS 1 PO twice daily TOPIRAMATE 64660555884 Active oYlande Lindsay MD PhD Active AZITHROMYCIN 250 MG TABS 2 po qd x 1 day, then 1 po qd x 4 days AZITHROMYCIN 01354162652 No Longer Active Yolande Lindsay MD PhD Active DICLOFENAC SODIUM 75 MG TBEC 1 tablet by q 12 hours PRN headaches DICLOFENAC SODIUM 90721243483 No Longer Active Yolande Lindsay MD PhD Active FLONASE 50 MCG/ACT SUSP 1 spray each nostril am and hs FLUTICASONE PROPIONATE 07765175173 No Longer Active Todd Callaway MD Active ANUSOL-HC 25 MG SUPPOSITORY 1 rectally twice a day as needed for hemorrhoids HYDROCORTISONE JAYDEN (RECTAL) 11230255889 No Longer Active Yolande Lindsay MD PhD Active ANUSOL-HC 25 MG SUPPOSITORY 1 suppository rectally each evening as needed for anal fissure HYDROCORTISONE JAYDEN (RECTAL) 27705668726 No Longer Active LONNIE Iglesias Active VALIUM 5 MG TAB 1 po 30 minutes prior to your MRI DIAZEPAM 64360088957 No Longer Active LONNIE Iglesias Active METHOCARBAMOL 750 MG TABS 1 PO QID PRN METHOCARBAMOL 63787548471 No Longer Active Daphne Wetzel APRN Active NITROSTAT 0.4 MG SUBL as directed NITROGLYCERIN 31458297146 No Longer Active Jillina Frazell [employer] Active ROBAXIN-750 750 MG TABS 2 four times a day for 3 days as needed for muscle spasm, then 1 four times a day as needed METHOCARBAMOL 55942414209 No Longer Active Silvestrellnacho Sarah APRN Active HYDROCODONE-ACETAMINOPHEN 5-325 MG TABS 1 q 4-6 hrs prn HYDROCODONE-ACETAMINOPHEN 24122772352 No Longer Active Silvestrellina Tyrel ZAPATAN Active VERAPAMIL HCL CR 180 MG CR-TABS TAKE 1 TAB DAILY VERAPAMIL HCL 01956084506 No Longer Active Yolande Lindsay MD PhD Active BACTRIM DS 800-160 MG TAB 1 tab by mouth twice daily TRIMETHOPRIM-SULFAMETHOXAZOLE 92032591812 No Longer Active Yolande Lindsay MD PhD Active NEXIUM 40 MG PACK 1 by mouth daily ESOMEPRAZOLE MAGNESIUM 13462462494 No Longer Active Des Hines MD Active EPIPEN 2-CHARLETTE 0.3 MG/0.3ML OMARI as need for allergic reaction EPINEPHRINE 60019186616 Active Yolande Lindsay MD PhD Active NEXIUM 40 MG CPDR 1 PO Q D DAY ESOMEPRAZOLE MAGNESIUM 90890453129 No Longer Active Sadia Perry RN Active NEXIUM 40 MG PACK 1 by mouth daily NEXIUM 40 MG PACK ESOMEPRAZOLE MAGNESIUM Inactive VERAPAMIL HCL CR 180 MG CR-TABS TAKE 1 TAB DAILY VERAPAMIL HCL CR 180 MG CR-TABS VERAPAMIL HCL Inactive HYDROCODONE-ACETAMINOPHEN 5-325 MG TABS 1 q 4-6 hrs prn HYDROCODONE-ACETAMINOPHEN 5-325 MG TABS 221120 HYDROCODONE-ACETAMINOPHEN Inactive ROBAXIN-750 750 MG TABS 2 four times a day for 3 days as needed for muscle spasm, then 1 four times a day as needed ROBAXIN-750 750 MG TABS 009078 METHOCARBAMOL Inactive NITROSTAT 0.4 MG SUBL as directed NITROSTAT 0.4 MG SUBL 289586 NITROGLYCERIN Inactive METHOCARBAMOL 750 MG TABS 1 PO QID PRN METHOCARBAMOL 750 MG TABS 382352 METHOCARBAMOL Inactive VALIUM 5 MG TAB 1 po 30 minutes prior to your MRI VALIUM 5 MG TAB 286020 DIAZEPAM Inactive ANUSOL-HC 25 MG SUPPOSITORY 1 suppository rectally each evening as needed for anal fissure ANUSOL-HC 25 MG SUPPOSITORY 5559669 HYDROCORTISONE JAYDEN (RECTAL) Inactive ANUSOL-HC 25 MG SUPPOSITORY 1 rectally twice a day as needed for hemorrhoids ANUSOL-HC 25 MG SUPPOSITORY 5346829 HYDROCORTISONE JAYDEN (RECTAL) Inactive FLONASE 50 MCG/ACT SUSP 1 spray each nostril am and hs FLONASE 50 MCG/ACT SUSP FLUTICASONE PROPIONATE Inactive DICLOFENAC SODIUM 75 MG TBEC 1 tablet by q 12 hours PRN headaches DICLOFENAC SODIUM 75 MG TBEC 650898 DICLOFENAC SODIUM Inactive PA VITAMIN D-3 2000 UNIT CAPS 1 CAP PO DAILY PA VITAMIN D-3 2000 UNIT CAPS CHOLECALCIFEROL Inactive PREVACID 30 MG CPDR Take 1 tablet by mouth daily-PRN PREVACID 30 MG CPDR 419918 LANSOPRAZOLE Inactive DOXYCYCLINE HYCLATE 100 MG TAB 1 tab twice a day for 14 days 2013 DOXYCYCLINE HYCLATE 100 MG TAB 1299900 DOXYCYCLINE HYCLATE Inactive XOPENEX 1.25 MG/3ML NEBU 1 neb every 4 hours if needed for cough/congestion XOPENEX 1.25 MG/3ML NEBU 029138 LEVALBUTEROL HCL Inactive CYCLOBENZAPRINE HCL 10 MG TABS 1/2 - 1 tab by mouth three times daily if needed for spasms/pain CYCLOBENZAPRINE HCL 10 MG TABS 970664 CYCLOBENZAPRINE HCL Inactive ALBUTEROL SULFATE 0.083 % NEBU SOLN one vial per nebulizer every 4-6 hours as needed ALBUTEROL SULFATE 0.083 % [facility] SOLN 296227 ALBUTEROL SULFATE Inactive CEFTIN 500 MG TAB 1 twice a day CEFTIN 500 MG TAB 648786 CEFUROXIME AXETIL Inactive ZOFRAN ODT 4 MG TBDP 1 pill dissolved by mouth every 4 hours if needed for nausea ZOFRAN ODT 4 MG TBDP 890166 ONDANSETRON Inactive ADULT ASPIRIN EC LOW STRENGTH 81 MG TBEC Take 1 tablet by mouth daily 2014 ADULT ASPIRIN EC LOW STRENGTH 81 MG TBEC 437070 ASPIRIN Inactive CALCIUM 600+D PLUS MINERALS 600-400 [...] or an apple NIACIN 500 MG TABS 062021 NIACIN Inactive NIASPAN 500 MG ORAL CR-TABS 1 pill nightly x 1 week, then 2 pills nightly x 1 week, then 3 pills nightly x 1 week, then 4 pills nightly NIASPAN 500 MG ORAL CR-TABS NIACIN (ANTIHYPERLIPIDEMIC) Inactive OXYCODONE HCL 5 MG ORAL CAPS 1 TAB PO Q HS OXYCODONE HCL 5 MG ORAL CAPS 6003017 OXYCODONE HCL Inactive FLUTICASONE PROPIONATE 50 MCG/ACT SUSP 1 to 2 sprays each nostril daily 04/21 FLUTICASONE PROPIONATE 50 MCG/ACT SUSP 9437344 FLUTICASONE PROPIONATE Inactive POLYTRIM 61236-3.1 UNIT/ML-% SOLN 1 gtt to affected eye q3h x 7 days POLYTRIM 97172-4.1 UNIT/ML-% SOLN 978291 POLYMYXIN B- TRIMETHOPRIM Inactive CHERATUSSIN AC 100-10 MG/5ML SYRP 1 tsp by mouth every 4 hours as needed for cough CHERATUSSIN AC 100-10 MG/5ML SYRP 221494 GUAIFENESIN-CODEINE Inactive LEVOTHYROXINE SODIUM 75 MCG TABS Take 1 tab daily LEVOTHYROXINE SODIUM 75 MCG TABS 647240 LEVOTHYROXINE SODIUM Inactive BACTRIM DS 800-160 MG TAB 1 tab by mouth twice daily BACTRIM DS 800-160 MG TAB 19820606 TRIMETHOPRIM-SULFAMETHOXAZOLE Inactive AZITHROMYCIN 250 MG TABS 2 po qd x 1 day, then 1 po qd x 4 days AZITHROMYCIN 250 MG TABS 5011255 AZITHROMYCIN Inactive CEFDINIR 300 MG CAPS by mouth twice a day CEFDINIR 300 MG CAPS 20020708 CEFDINIR Inactive AZITHROMYCIN 250 MG TABS 2 pills on day 1, then 1 pill daily x 4 days AZITHROMYCIN 250 MG TABS 4614392 AZITHROMYCIN Inactive DOXYCYCLINE HYCLATE 100 MG CAP 1 cap by mouth twice daily DOXYCYCLINE HYCLATE 100 MG CAP 2148842 DOXYCYCLINE HYCLATE Inactive FUROSEMIDE 20 MG TABS 1 pill by mouth daily, for edema FUROSEMIDE 20 MG TABS 136947 FUROSEMIDE Inactive AZITHROMYCIN 250 MG TABS 2 po qd x 1 day, then 1 po qd x 4 days AZITHROMYCIN 250 MG TABS 7228812 AZITHROMYCIN Inactive CEFTIN 500 MG TAB 1 twice a day CEFTIN 500 MG TAB 018732 CEFUROXIME AXETIL Inactive CEFDINIR 300 MG CAPS 1 po BID x 10 days CEFDINIR 300 MG CAPS 20020708 CEFDINIR Inactive BACTRIM DS 800-160 MG TAB 1 tab by mouth twice daily BACTRIM DS 800-160 MG TAB 345451 TRIMETHOPRIM-SULFAMETHOXAZOLE Inactive PREDNISONE 20 MG TAB 2 tabs daily for 3 days, 1 tab daily for 3 days, 1/2 tab daily for 2 days PREDNISONE 20 MG TAB 701315 PREDNISONE Inactive Immunizations Vaccine Administration Date Value Standard Description Seasonal influenza vaccine, injectable, containing preservative, for > 3 years old (Afluria, FluLaval, Fluzone, Fluvirin, Fluarix, Agriflu(>=18 yo)) Fluzone (>3 yrs.) [[id number]] Influenza, seasonal, injectable influenza immunization (Flu Vax) has been administered Influenza - Unspecified Formulation [CVX88] influenza virus vaccine, unspecified formulation Seasonal influenza vaccine, injectable, containing preservative, for > 3 years old (Afluria, FluLaval, Fluzone, Fluvirin, Fluarix, Agriflu(>=18 yo)) Fluzone (>3 yrs.) [WXU551] Influenza, seasonal, injectable pneumococcal immunization administered Pneumovax 23 [CVX33] pneumococcal polysaccharide vaccine, 23 valent dT (Diphtheria and Tetanus) booster given given Td(adult) unspecified formulation Boostrix (Tetanus toxoid, reduced diphtheria toxoid and acellular pertussis vaccine, adsorbed), booster Boostrix [[id number]] tetanus toxoid, reduced diphtheria toxoid, and acellular pertussis vaccine, adsorbed Vital Signs Date Name Value Unit Range Description blood pressure, diastolic - 8462-4 70 mm[Hg] [...] E&M - 3141-9 238 [lb_av] Weight Measured Diagnostic Results Date Name Value Unit Range Description Lab Report: Basic Metabolic Panel - Chemistry sodium, serum 142 mmol/L 416-112 0851/06/30 potassium, serum 4.4 mmol/L 3.5-5.2 chloride, serum 108 mmol/L 98-107 carbon dioxide, venous blood 25.1 mmol/L 21.0-32.0 blood glucose 82 mg/dL 65-110 calcium, serum 9.1 mg/dL 8.5-10.1 urea nitrogen, blood 18 mg/dL 7-18 creatinine, serum 1.31 mg/dL 0.55-1.30 Lab Report: CBC - Hematology leukocyte count, [...] Rate - Chemistry sodium, serum 139 mmol/L 067-856 6023/03/24 carbon dioxide, venous blood 22.4 mmol/L 21.0-32.0 [...] ... - Chemistry sodium, serum 143 mmol/L 216-364 4476/05/02 carbon dioxide, venous blood 25.6 mmol/L 21.0-32.0 [...] PANEL - Chemistry cholesterol, serum 166 mg/dL 006-831 5033/12/06 triglyceride, serum, fasting 86 mg/dL 30-200 HDL [...] 5 MCG/MG CREAT mg/L <30 Lab Report: TIERA INFLUENZA A/B - Toxicology rapid flu test Negative Negative;Positive Lab Report: Thyroid Stimulating Hormone (L), Free Thyroxine (L) - Chemistry TSH 1.08 m[iU]/mL 0.36-3.74 thyroxine, serum, free 0.75 ng/dL 0.76-1.46 Lab Report: UADIP W/MICRO, AUTO, CBC W/DIFF, Comp. Metabolic Panel - Chemistry protein, total urine random Negative mg/dL Negative RBC, urine, dipstick Negative Negative sodium, serum 142 mmol/L 646-620 6748/07/18 carbon dioxide, venous blood 27.8 mmol/L 21.0-32.0 [...] triglyceride, target level 150 mg/dL Office Visit: Follow up hydrodilation - [...] (dipstick) 0.2 protein, urine, semiquantitative (dipstick) negative Encounters Code Encounter Date Provider Facility CPT-13649 Level 3 Est. Patient 20:13:34 BIOMEDICAL INSTRUMENT TECHNICIAN Jared Og MD [facility] CPT-49198 Level 4 Est. Patient 16:31:27 CDT Gab Padron MD [facility] CPT-16767 Level 2 Est. Patient 12:23:38 CDT Jared Og MD [facility] CPT-45910 Level 3 Est. Patient 11:01:51 CDT Gab Padron MD [facility] CPT-59763 Level 3 Est. Patient 15:27:02 CDT Jared Og MD [facility] [place] CPT-01885 Level 4 Est. Patient 09:25:27 CDT Gab Padron MD [facility] CPT-76879 Level 3 Est. Patient 10:29:41 CDT Rodrigo Sarah [facility] CPT-69666 Level 4 Est. Patient 17:51:05 CDT Gab Padron MD [facility] CPT-88905 Level 3 Est. Patient 14:18:08 CDT Gab Padron MD [facility] CPT-61789 Level 4 Est. Patient 10:18:54 CDT Gab Padron MD [facility] CPT-60066 Level 3 Est. Patient 11:30:07 CDT Rodrigo Sarah [facility] CPT-37231 Level 4 Est. Patient 21:02:30 BIOMEDICAL INSTRUMENT TECHNICIAN Gab Padron MD [facility] CPT-83053 Level 3 Est. Patient 11:02:19 BIOMEDICAL INSTRUMENT TECHNICIAN Gab Padron MD [facility] CPT-55018 Level 4 Est. Patient 22:24:31 BIOMEDICAL INSTRUMENT TECHNICIAN Gab Padron MD [facility]-95945 Level 3 Est. Patient 18:33:46 BIOMEDICAL INSTRUMENT TECHNICIAN Gab Padron MD [facility]-91762 Level 3 Est. Patient 16:19:11 CDT Yolande Lindsay MD [facility]-98862 Level 3 Est. Patient 18:59:14 CDT Yolande Lindsay MD [facility]-57800 Level 4 Est. Patient 21:29:26 CDT Yolande Lindsay MD [facility]-34196 Level 3 Est. Patient 07:37:45 CDT Yolande Lindsay MD [facility]-38320 Level 3 Est. Patient 17:03:46 CDT Yolande Lindsay MD [facility]-23140 Level 4 Est. Patient 20:02:13 BIOMEDICAL INSTRUMENT TECHNICIAN Yolande Lindsay MD [facility]-89379 Level 3 Est. Patient 16:02:07 BIOMEDICAL INSTRUMENT TECHNICIAN Alexis Ordaz MD [facility]-62448 Level 3 Est. Patient 12:41:24 BIOMEDICAL INSTRUMENT TECHNICIAN Yolande Lindsay MD [facility]-36578 Level 3 Est. Patient 15:41:20 BIOMEDICAL INSTRUMENT TECHNICIAN Yolande Lindsay MD [facility]-30602 Level 3 Est. Patient 13:20:02 BIOMEDICAL INSTRUMENT TECHNICIAN Yolande Lindsay MD [facility]-48680 Level 3 Est. Patient 15:00:38 CDT Jared Og MD [facility]-29316 Level 3 Est. Patient 10:22:32 CDT Yolande Lindsay MD [facility]-59904 Level 3 Est. Patient 17:12:58 CDT Yolande Lindsay MD [facility]-46580 Level 4 Est. Patient 13:30:58 CDT Yolande Lindsay MD [facility]-06984 Level 4 New Patient 09:02:42 CDT Jared Og MD [facility]-14401 Level 3 Est. Patient 08:19:07 CDT Yolande Lindsay MD [facility]-75903 Level 3 Est. Patient 12:00:13 BIOMEDICAL INSTRUMENT TECHNICIAN Gab Padron MD [facility]-25811 Level 3 Est. Patient 16:15:23 BIOMEDICAL INSTRUMENT TECHNICIAN Yolande Lindsay MD [facility]-87115 Level 2 Est. Patient 19:47:15 CDT Yolande Lindsay MD [facility]-82610 Level 3 Est. Patient 21:38:31 CDT Yolande Lindsay MD [facility]-53615 Level 3 Est. Patient 10:25:12 CDT Adiel PERAZA [facility] CPT-36736 Level 4 Est. Patient 10:51:58 CDT Yolande Lindsay MD [facility]-29763 Level 3 Est. Patient 14:04:55 BIOMEDICAL INSTRUMENT TECHNICIAN [facility] Level 3 Est. Patient 10:46:35 BIOMEDICAL INSTRUMENT TECHNICIAN Rodrigo Sarah [facility]-46996 Level 3 Est. Patient 14:24:37 BIOMEDICAL INSTRUMENT TECHNICIAN Yolande Lindsay MD [facility]-02886 Level 3 Est. Patient 17:41:58 BIOMEDICAL INSTRUMENT TECHNICIAN Yolande Lindsay MD [facility]-46849 Level 2 Est. Patient 22:01:41 BIOMEDICAL INSTRUMENT TECHNICIAN Rodrigo Sarah [facility] CPT-94113 Level 2 Est. Patient 22:01:11 BIOMEDICAL INSTRUMENT TECHNICIAN Rodrigo Sarah [facility] CPT-14198 Level 3 Est. Patient 10:12:29 BIOMEDICAL INSTRUMENT TECHNICIAN Rodrigo Sarah [facility] CPT-00619 Level 3 Est. Patient 11:05:44 CDT Alexis Ordaz MD [facility] CPT-70423 Level 3 Est. Patient 14:57:20 CDT Yolande Lindsay MD [facility] CPT-91008 Level 3 Est. Patient 14:40:57 CDT Yolande Lindsay MD [facility] CPT-41935 Level 3 Est. Patient 20:55:40 CDT Yolande Lindsay MD [facility] CPT-45472 Level 3 Est. Patient 12:42:38 BIOMEDICAL INSTRUMENT TECHNICIAN Yolande Lindsay MD [facility] CPT-25219 Level 3 Est. Patient 11:54:49 BIOMEDICAL INSTRUMENT TECHNICIAN Des Hines MD [facility] CPT-21495 Level 3 Est. Patient 17:06:38 CDT Dewayne PERAZA [facility] Procedures Code Procedure Name Date Entry Date Standard Description CPT-86708 Venipuncture Draw Fee 08:37:59 BIOMEDICAL INSTRUMENT TECHNICIAN CPT-63648 Liver Profile - LAB USE ONLY 08:37:59 BIOMEDICAL INSTRUMENT TECHNICIAN CPT-59994 Lipid - LAB USE ONLY 08:37:58 BIOMEDICAL INSTRUMENT TECHNICIAN CPT-71030 First Vx - Ix admin via ID IM or jet injects without counseling by physician 11:52:31 CDT CPT-59334 Fluzone Preservative Free Intramuscular Suspension 11:52 :31 CDT CPT-54401 Foot, left, comp min 3V - XRAY USE ONLY 09:24:54 CDT CPT-62707 Abd single AP View - XRAY USE ONLY 11:16:17 CDT CPT-62134 T spine AP/ Lat - XRAY USE ONLY 09:34:21 CDT CPT-45931 Chest 2V Frontal and Lat - XRAY USE ONLY 10:48:51 CDT CPT-69410 LS spine comp w obliq 13:28:00 BIOMEDICAL INSTRUMENT TECHNICIAN CPT-J1040 Depo Medrol 80 mg (Methyl Prednisolone Acetate) 10:51: 28 BIOMEDICAL INSTRUMENT TECHNICIAN CPT-J1100 Decadron 8mg (Dexamethasone) 10:51:28 BIOMEDICAL INSTRUMENT TECHNICIAN CPT-02936 Abx/Therapy Injection 10:51:28 BIOMEDICAL INSTRUMENT TECHNICIAN CPT-J1100 Decadron 8mg (Dexamethasone) 21:02:30 BIOMEDICAL INSTRUMENT TECHNICIAN CPT-J1040 Depo Medrol 80 mg (Methyl Prednisolone Acetate) 21:02: 30 BIOMEDICAL INSTRUMENT TECHNICIAN [id number] Event Monitor - MC Transmission 09:12:32 CDT 08/06 [id number] Event Monitor - MC review and interp 09:12:32 CDT [id number] Event Monitor - MC recording 09:12:32 CDT CPT-42029 EKG Trac and Interp 16:50:22 CDT CPT-J1030 Depo Medrol 40 mg (Methyl Prednisolone Acetate) 17:05: 54 CDT CPT-J1100 Decadron 4mg (Dexamethasone) 17:05:54 CDT CPT-72039 Abx/Therapy Injection 17:05:54 CDT CPT-J1100 Decadron 4mg (Dexamethasone) 16:55:28 CDT CPT-J1030 Depo Medrol 40 mg (Methyl Prednisolone Acetate) 16:55: 28 CDT CPT-50343 Ankle Complete - Min 3V 15:58:50 CDT CPT-55230 Knee 3V 15:58:50 CDT CPT-55508 Hip comp min 2V 15:58:50 CDT CPT-J2270 Morphine Sulfate 10 mg 14:25:44 BIOMEDICAL INSTRUMENT TECHNICIAN CPT-J2550 Phenergan 12.5 mg (Promethazine) 14:25:44 BIOMEDICAL INSTRUMENT TECHNICIAN CPT-08235 Abx/Therapy Injection 14:25:44 BIOMEDICAL INSTRUMENT TECHNICIAN CPT-J2550 Phenergan 12.5 mg (Promethazine) 14:08:03 BIOMEDICAL INSTRUMENT TECHNICIAN CPT-J2270 Morphine Sulfate 10 mg 14:08:03 BIOMEDICAL INSTRUMENT TECHNICIAN CPT-62682 Bladder Scan 15:00:38 CDT CPT-TCMM Transitional Care Mgmt-Moderate 09:52:22 CDT CPT-J1030 Depo Medrol 40 mg (Methyl Prednisolone Acetate) 10:55: 18 CDT CPT-J1100 Decadron 4mg (Dexamethasone) 10:55:18 CDT CPT-81880 Abx/Therapy Injection 10:55:18 CDT CPT-J1030 Depo Medrol 40 mg (Methyl Prednisolone Acetate) 10:22: 32 CDT CPT-J1100 Decadron 4mg (Dexamethasone) 10:22:32 CDT CPT-66120 Postop F/U Visit 14:37:13 CDT CPT-46736 Ankle Complete - Min 3V 17:11:58 CDT CPT-71509 Foot comp min 3V 17:11:58 CDT CPT-80919 Bladder Scan 09:56:58 CDT CPT-04938 Postop F/U Visit 09:56:58 CDT CPT-04925 Cystoscopy 09:02:42 CDT CPT-94556 Bladder Scan 09:02:42 CDT CPT-98971 Abd single AP View 16:00:35 CDT CPT-95579 Administration single or combination vaccine inc oral 10 :15:43 CDT CPT-15819 Influenza split virus > age 3 10:15:43 CDT CPT-61764 Nail Avulsion 09:24:57 CDT CPT-OV Office Visit 11:15:41 CDT CPT-22885 Abx/Therapy Injection 10:51:30 CDT CPT-J3301 Kenalog 40 mg (Triamcinolone Acetonide) 10:25:12 CDT CPT-J1100 Decadron 4mg (Dexamethasone) 10:25:12 CDT CPT-19773 Anoscopy diagnostic 10:36:12 CDT CPT-OV Office Visit 15:34:31 CDT CPT-96720 Abx/Therapy Injection 08:21:15 BIOMEDICAL 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 Care Visit 14:19:18 BIOMEDICAL INSTRUMENT TECHNICIAN CPT-30732 Postop F/U Visit 14:47:51 BIOMEDICAL INSTRUMENT TECHNICIAN CPT-27668 Postop F/U Visit 15:15:14 BIOMEDICAL INSTRUMENT TECHNICIAN CPT-48857 Postop F/U Visit 14:41:43 CDT CPT-13143 Postop F/U Visit 15:47:46 CDT CPT-OV Office Visit 15:27:23 CDT CPT-OV Office Visit 17:20:34 CDT CPT-56988 Abx/Therapy Injection 15:05:57 CDT CPT-J1100 Decadron 8mg (Dexamethasone) 14:44:57 CDT CPT-J1040 Depo Medrol 80 mg (Methyl Prednisolone Acetate) 14:44: 57 CDT CPT-JTINJ Joint Injection 10:17:37 CDT CPT-12612 Administration 2+ single or combination vaccines inc oral 13:01:46 BIOMEDICAL INSTRUMENT TECHNICIAN CPT-87880 Administration single or combination vaccine inc oral 13 :01:46 BIOMEDICAL INSTRUMENT TECHNICIAN CPT-54978 Pneumovax 13:01:46 BIOMEDICAL INSTRUMENT TECHNICIAN CPT-47300 Influenza split virus > age 3 13:01:46 BIOMEDICAL INSTRUMENT TECHNICIAN CPT-57588 Administration single or combination vaccine inc oral 08 :56:49 CDT CPT-06780 Tdap 08:56:49 CDT
--- OUTSIDE RECORDS SUMMARY | 2017-03-21 19:44 | XMS REPORT | Clinical Summary ---
Author Author Admin, E Organization [facility] Address Unknown Phone Unavailable Allergies, Adverse Reactions, Alerts Allergy Name Reaction Description Start Date Severity Status Provider VALENTIN Critical Active Rodrigo Fracharlottel [employer] CHLORHEXIDINE GLUCONATE tongue and gums swollen Critical Active Hoa Otto RMA NORFLEX Rash Critical Active Silvestrellina Frazell [employer]OR FE[employer]ER TRAZODONE HCL sees things Critical Active Dewayne [...] PhD Internal hemorrhoids with other complication POISON SAMI DERMATITIS 692.6 Resolved Yolande Lindsay MD PhD [...] due to Mycoplasma pneumoniae Sexual dysfunction 302.70 Resolved Gab Padron MD Psychosexual dysfunction, unspecified Muscle spasm, back [...] involving pelvic region and thigh Palpitations 785.1 Resolved Gab Padron MD Palpitations 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.22 Resolved Gab Padron MD 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 Myocardial infarction, hx of 412 Active Hoa Otto A Old myocardial infarction Pelvic pain 789.09 Resolved Gab Padron MD Abdominal pain, other specified site; multiple sites Edema 782.3 Active Yolande Lindsay MD PhD Edema Rash 782.1 Resolved Gab Padron MD Rash and other nonspecific skin eruption Back pain, lumbar 724.2 Resolved Gab Padron MD Lumbago Cough 786.2 Resolved Gab Padron MD Cough 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 Resolved Gab Padron MD 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 Anemia 285.9 Active Gab Padron MD Anemia, unspecified Conjunctivitis 372.30 Resolved Gab Padron MD Conjunctivitis, unspecified Sinusitis 473.9 Resolved Gab Padron MD Unspecified sinusitis (chronic) Nonspecific syndrome suggestive of viral illness 079.99 Resolved Gab Padron MD Unspecified viral infection Laryngitis 464.00 Resolved Gab Padron MD Acute laryngitis without mention of obstruction Abdominal pain 789.00 Resolved Gab Padron MD Abdominal pain, unspecified site Chest discomfort 786.59 Resolved Gab Padron MD Other chest pain Cellulitis, leg, right 682.6 Resolved Gab Padron MD Cellulitis and abscess of leg, except foot Insect bite, infected 919.5 Resolved Gab Padron MD Insect bite, nonvenomous, of other, multiple, and unspecified sites, infected Renal insufficiency, mild 585.2 Resolved Gab Padron MD Chronic kidney disease, Stage II (mild) 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 Gab Padron MD Other and unspecified factitious illness Flank pain, left 789.09 Resolved Gab Padron MD Abdominal pain, other specified site; multiple sites Abdominal pain, generalized 789.07 Resolved Gab Padron MD Abdominal pain, generalized Back pain, thoracic region, left 724.1 Resolved Gab Padron MD Pain in thoracic spine Abdominal pain, left lower quadrant 789.04 Resolved Gab Padron MD Abdominal pain, left lower quadrant Slowing of urinary stream 788.62 Resolved Gab Padron MD Slowing of urinary stream Interstitial cystitis 595.1 Active Gab Padron MD Chronic interstitial cystitis Flank Pain Resolved Gab Padron MD Abdominal pain, unspecified site Foot pain, left 729.5 Resolved Gab Padron MD Pain in limb Heel spur 726.73 Active Gab Padron MD Calcaneal spur Breast tenderness 611.71 Resolved Gab Padron MD Mastodynia Routine gynecological examination V72.31 Active Gab Padron MD Routine gynecological examination Breast mass, right 611.72 Resolved Gab Padron MD Lump or mass in breast Renal mass 593.9 Resolved Gab Padron MD Unspecified disorder of kidney and ureter Nausea 787.02 Resolved Gab Padron MD Nausea alone Hip pain, left 719.45 Resolved Gab Padron MD Pain in joint involving pelvic region and thigh Renal carcinoma 189.0 Active Erum Elder Malignant neoplasm of kidney, except pelvis Poison sami 692.6 Resolved Gab Padron MD Contact dermatitis and other eczema due to plants [except food] Esophageal disorder 530.9 Active Gab Padron MD Unspecified disorder of esophagus FOOT PAIN, RIGHT ICD-729.5 Inactive Yolande Lindsay [...] ICD-455.2 Inactive Yolande Lindsay MD PhD POISON SAMI DERMATITIS ICD-692.6 Inactive Yolande Lindsay MD PhD [...] pneumonia ICD-483.0 Inactive Yolande Lindsay MD PhD Sexual dysfunction ICD-302.70 Inactive Gab Padron MD Muscle spasm, back ICD-724.8 Inactive Yolande Lindsay [...] left ICD-719.45 Inactive Yolande Lindsay MD PhD Palpitations ICD-785.1 Inactive Gab Padron MD 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 ICD-379.22 Inactive Gab Padron MD Pelvic pain ICD-789.09 Inactive Gab Padron MD Rash ICD-782.1 Inactive Gab Padron MD Back pain, lumbar ICD-724.2 Inactive Gab Padron MD Cough ICD-786.2 Inactive Gab Padron MD 09/20 Mycoplasma infection ICD-041.81 Inactive Gab Padron MD Conjunctivitis ICD-372.30 Inactive Gab Padron MD Sinusitis ICD-473.9 Inactive Gab Padron MD Nonspecific syndrome suggestive of viral illness ICD-079.99 09/20 Inactive Gab Padron MD Laryngitis ICD-464.00 Inactive Gab Padron MD Abdominal pain ICD-789.00 Inactive Gab Padron MD Chest discomfort ICD-786.59 Inactive Gab Padron MD Cellulitis, leg, right ICD-682.6 Inactive Gab Padron MD Insect bite, infected ICD-919.5 Inactive Gab Padron MD Renal insufficiency, mild ICD-585.2 Inactive Gab Padron MD Flank pain, left ICD-789.09 Inactive Gab Padron MD Abdominal pain, generalized ICD-789.07 Inactive Gab Padron MD Back pain, thoracic region, left ICD-724.1 Inactive Gab Padron MD Abdominal pain, left lower quadrant ICD-789.04 Inactive Gab Padron MD Slowing of urinary stream ICD-788.62 Inactive Gab Padron MD Flank Pain Inactive Gab Padron MD Foot pain, left ICD-729.5 Inactive Gab Padron MD Breast tenderness ICD-611.71 Inactive Gab Padron MD Breast mass, right ICD-611.72 Inactive Gab Padron MD Renal mass ICD-593.9 Inactive Gab Padron MD Nausea ICD-787.02 Inactive Gab Padron MD 2016 Hip pain, left ICD-719.45 Inactive Gab Padron MD Poison sami ICD-692.6 Refugio Padron MD Medication List Medication Instructions Start Date Stop Date Generic Name NDC Status Provider Patient Instruction CETIRIZINE HCL 10 MG ORAL TABS 1 po qd PRN Allergies CETIRIZINE HCL 69834709474 Active Gab Padron MD Active CLARITIN 10 MG TAB 1 tablet by mouth daily as needed for allergies LORATADINE 71694189295 No Longer Active Gab Padron MD Active PREDNISONE 20 MG TAB take 3 tabs daily for 3 days, 2 tabs daily for 3 days, 1 tab daily for 3 days, 1/2 tab daily for 3 days PREDNISONE 11046974174 No Longer Active Tisha Lambert APRN Active TRAMADOL HCL 50 MG TABS 1 tab po every 6 hrs prn pain TRAMADOL HCL 97491136106 Active Gab Padron MD Active PREDNISONE 20 MG TAB 2 tabs daily for 3 days, 1 tab daily for 3 days, 1/2 tab daily for 2 days PREDNISONE 86711492324 No Longer Active Gab Padron MD Active ZOFRAN ODT 4 MG TBDP 1 po q6hr PRN Nausea ONDANSETRON 58814732284 Active Gab Padron MD Active IBUPROFEN 600 MG TAB 1 tablet by mouth every 6 hours for 7 days, then 1 tablet every 6 hours as needed. Take with food IBUPROFEN 89072863007 Active Rodrigo Sarah APRN Active BACTRIM DS 800-160 MG TAB 1 tab by mouth twice daily TRIMETHOPRIM-SULFAMETHOXAZOLE 36868068184 No Longer Active Gab Padron MD Active ADVAIR DISKUS 250-50 MCG/DOSE AEPB 1 puff BID FLUTICASONE- SALMETEROL 84933365270 Active Rodrigo Sarah APRN Active LEVOTHYROXINE SODIUM 75 MCG TABS Take 1 tab daily LEVOTHYROXINE SODIUM 86001768406 No Longer Active Mariana FLEMING Active SYNTHROID 88 MCG ORAL TABS Take one by mouth daily LEVOTHYROXINE SODIUM 75255036333 Active Gab Padron MD Active CHERATUSSIN AC 100-10 MG/5ML SYRP 1 tsp by mouth every 4 hours as needed for cough GUAIFENESIN-CODEINE 32692196252 No Longer Active Gab Padron MD Active POLYTRIM 78448-1.1 UNIT/ML-% SOLN 1 gtt to affected eye q3h x 7 days POLYMYXIN B-TRIMETHOPRIM 58332718154 No Longer Active Gab Padron MD Active FLUTICASONE PROPIONATE 50 MCG/ACT SUSP 1 to 2 sprays each nostril daily 04/21 FLUTICASONE PROPIONATE 54981854102 No Longer Active Gab Padron MD Active TRILEPTAL 600 MG TABS Take one 1 tablet in Am and 1 tablet at night OXCARBAZEPINE 61855746631 Active Gab Padron MD Active CEFDINIR 300 MG CAPS 1 po BID x 10 days CEFDINIR 61467546639 No Longer Active Silvestrellina Tyrel GAUTAM Active CEFTIN 500 MG TAB 1 twice a day CEFUROXIME AXETIL 83343638301 No Longer Active Gab Padron MD Active AZITHROMYCIN 250 MG TABS 2 po qd x 1 day, then 1 po qd x 4 days AZITHROMYCIN 62832855115 No Longer Active Silvestrellina Frahossein GAUTAM Active OXYCODONE HCL 5 MG ORAL CAPS 1 TAB PO Q HS OXYCODONE HCL 73241862111 No Longer Active Jillina Frahossein GAUTAM Active NIASPAN 500 MG ORAL CR-TABS 1 pill nightly x 1 week, then 2 pills nightly x 1 week, then 3 pills nightly x 1 week, then 4 pills nightly NIACIN (ANTIHYPERLIPIDEMIC) 16327126415 No Longer Active Jillina Frahossein [employer]ER Active NIACIN 500 MG TABS 1 pill by mouth nightly x 1 week, then 2 pills x 1 week, then 3 pills x 1 week, then 4 pills nightly - take after evening meal, with applesauce or an apple NIACIN 87731274141 No Longer Active Yolande Lindsay MD PhD Active FISH OIL 1000 MG CAPS 3 pills daily OMEGA-3 FATTY ACIDS 30006666246 Active Yolande Lindsay MD PhD Active TRIAMCINOLONE ACETONIDE 0.1 % CREA apply bid sparingly to rash TRIAMCINOLONE ACETONIDE 87368990376 Active Yolande Lindsay MD PhD Active FUROSEMIDE 20 MG TAB 1 tablet by mouth daily FUROSEMIDE 03912913264 Active Tisha Lambert [employer]OR FE[employer]ER Active LISINOPRIL 20 MG ORAL TABS 1 tab by mouth daily LISINOPRIL 57398185474 Active Gab Padron MD Active FUROSEMIDE 20 MG TABS 1 pill by mouth daily, for edema FUROSEMIDE 24518561485 No Longer Active Yolande Lindsay MD PhD Active ATORVASTATIN CALCIUM 10 MG TABS 1 pill by mouth daily, for cholesterol 09/06 ATORVASTATIN CALCIUM 54058361300 Active Gab Padron MD Active CALCIUM 600+D PLUS MINERALS 600-400 MG-UNIT ORAL CHEW 1 tab by mouth daily CALCIUM CARBONATE-VIT D-MIN 60469956739 No Longer Active Yolande Lindsay MD PhD Active CYCLOBENZAPRINE HCL 10 MG TABS 1 tablet by mouth three times daily as needed for muscle spasm/pain CYCLOBENZAPRINE HCL 02604293739 Active Yolande Lindsay MD PhD Active ONDANSETRON 4 MG TBDP 1 q4h PRN nausea ONDANSETRON 09579699582 Active Yolande Lindsay MD PhD Active ADULT ASPIRIN EC LOW STRENGTH 81 MG TBEC Take 1 tablet by mouth daily 2014 ASPIRIN 12154264459 No Longer Active Yolande Lindsay MD PhD Active ZOFRAN ODT 4 MG TBDP 1 pill dissolved by mouth every 4 hours if needed for nausea ONDANSETRON 89282954964 No Longer Active Yolande Lindsay MD PhD Active CEFTIN 500 MG TAB 1 twice a day CEFUROXIME AXETIL 61428192230 No Longer Active Yolande Lindsay MD PhD Active ALBUTEROL SULFATE 0.083 % NEBU SOLN one vial per nebulizer every 4-6 hours as needed ALBUTEROL SULFATE 97585221372 No Longer Active Alexis Ordaz MD Active DOXYCYCLINE HYCLATE 100 MG CAP 1 cap by mouth twice daily DOXYCYCLINE HYCLATE 71288149670 No Longer Active Yolande Lindsay MD PhD Active CYCLOBENZAPRINE HCL 10 MG TABS 1/2 - 1 tab by mouth three times daily if needed for spasms/pain CYCLOBENZAPRINE HCL 70435267648 No Longer Active Yolande Lindsay MD PhD Active AZITHROMYCIN 250 MG TABS 2 pills on day 1, then 1 pill daily x 4 days AZITHROMYCIN 31723079950 No Longer Active Yolande Lindsay MD PhD Active XOPENEX 1.25 MG/3ML NEBU 1 neb every 4 hours if needed for cough/congestion LEVALBUTEROL HCL 19079182792 No Longer Active Yolande Lindsay MD PhD Active DOXYCYCLINE HYCLATE 100 MG TAB 1 tab twice a day for 14 days 2013 DOXYCYCLINE HYCLATE 19196711951 No Longer Active Yolande Lindsay MD PhD Active PREVACID 30 MG CPDR Take 1 tablet by mouth daily-PRN LANSOPRAZOLE 14297119635 No Longer Active Yolande Lindsay MD PhD Active PA VITAMIN D-3 2000 UNIT CAPS 1 CAP PO DAILY CHOLECALCIFEROL 10596940597 No Longer Active Yolande Lindsay MD PhD Active CEFDINIR 300 MG CAPS by mouth twice a day CEFDINIR 12659571862 No Longer Active Gab Padron MD Active TOPAMAX 50 MG TABS 1 PO twice daily TOPIRAMATE 47287428599 Active Yolande Lindsay MD PhD Active AZITHROMYCIN 250 MG TABS 2 po qd x 1 day, then 1 po qd x 4 days AZITHROMYCIN 19031881248 No Longer Active Yolande Lindsay MD PhD Active DICLOFENAC SODIUM 75 MG TBEC 1 tablet by q 12 hours PRN headaches DICLOFENAC SODIUM 21517890456 No Longer Active Yolande Lindsay MD PhD Active FLONASE 50 MCG/ACT SUSP 1 spray each nostril am and hs FLUTICASONE PROPIONATE 02480376887 No Longer Active Todd Callaway MD Active ANUSOL-HC 25 MG SUPPOSITORY 1 rectally twice a day as needed for hemorrhoids HYDROCORTISONE JAYDEN (RECTAL) 90694679620 No Longer Active Yolande Lindsay MD PhD Active ANUSOL-HC 25 MG SUPPOSITORY 1 suppository rectally each evening as needed for anal fissure HYDROCORTISONE JAYDEN (RECTAL) 04351323804 No Longer Active LONNIE Iglesias Active VALIUM 5 MG TAB 1 po 30 minutes prior to your MRI DIAZEPAM 76332756876 No Longer Active LONNIE Iglesias Active METHOCARBAMOL 750 MG TABS 1 PO QID PRN METHOCARBAMOL 58333975190 No Longer Active Daphne Wetzel APRN Active NITROSTAT 0.4 MG SUBL as directed NITROGLYCERIN 71947207642 No Longer Active Rodrigo Sarah APRN Active ROBAXIN-750 750 MG TABS 2 four times a day for 3 days as needed for muscle spasm, then 1 four times a day as needed METHOCARBAMOL 25545255315 No Longer Active Rodrigo Sarah APRN Active HYDROCODONE-ACETAMINOPHEN 5-325 MG TABS 1 q 4-6 hrs prn HYDROCODONE-ACETAMINOPHEN 78123778581 No Longer Active Rodrigo Sarah APRN Active VERAPAMIL HCL CR 180 MG CR-TABS TAKE 1 TAB DAILY VERAPAMIL HCL 66944280035 No Longer Active Yolande Lindsay MD PhD Active BACTRIM DS 800-160 MG TAB 1 tab by mouth twice daily TRIMETHOPRIM-SULFAMETHOXAZOLE 15304258541 No Longer Active Yolande Lindsay MD PhD Active NEXIUM 40 MG PACK 1 by mouth daily ESOMEPRAZOLE MAGNESIUM 96770932548 No Longer Active Des Hines MD Active EPIPEN 2-CHARLETTE 0.3 MG/0.3ML OMARI as need for allergic reaction EPINEPHRINE 39136436464 Active Yolande Lindsay MD PhD Active NEXIUM 40 MG CPDR 1 PO Q D DAY ESOMEPRAZOLE MAGNESIUM 27247147221 No Longer Active Sadia Perry RN Active NEXIUM 40 MG PACK 1 by mouth daily NEXIUM 40 MG PACK ESOMEPRAZOLE MAGNESIUM Inactive VERAPAMIL HCL CR 180 MG CR-TABS TAKE 1 TAB DAILY VERAPAMIL HCL CR 180 MG CR-TABS VERAPAMIL HCL Inactive HYDROCODONE-ACETAMINOPHEN 5-325 MG TABS 1 q 4-6 hrs prn HYDROCODONE-ACETAMINOPHEN 5-325 MG TABS 269940 HYDROCODONE-ACETAMINOPHEN Inactive ROBAXIN-750 750 MG TABS 2 four times a day for 3 days as needed for muscle spasm, then 1 four times a day as needed ROBAXIN-750 750 MG TABS 345249 METHOCARBAMOL Inactive NITROSTAT 0.4 MG SUBL as directed NITROSTAT 0.4 MG SUBL 122421 NITROGLYCERIN Inactive METHOCARBAMOL 750 MG TABS 1 PO QID PRN METHOCARBAMOL 750 MG TABS 059620 METHOCARBAMOL Inactive VALIUM 5 MG TAB 1 po 30 minutes prior to your MRI VALIUM 5 MG TAB 087062 DIAZEPAM Inactive ANUSOL-HC 25 MG SUPPOSITORY 1 suppository rectally each evening as needed for anal fissure ANUSOL-HC 25 MG SUPPOSITORY 4032388 HYDROCORTISONE JAYDEN (RECTAL) Inactive ANUSOL-HC 25 MG SUPPOSITORY 1 rectally twice a day as needed for hemorrhoids ANUSOL-HC 25 MG SUPPOSITORY 3944301 HYDROCORTISONE JAYDEN (RECTAL) Inactive FLONASE 50 MCG/ACT SUSP 1 spray each nostril am and hs FLONASE 50 MCG/ACT SUSP 7280078 FLUTICASONE PROPIONATE Inactive DICLOFENAC SODIUM 75 MG TBEC 1 tablet by q 12 hours PRN headaches DICLOFENAC SODIUM 75 MG TBEC 876419 DICLOFENAC SODIUM Inactive PA VITAMIN D-3 2000 UNIT CAPS 1 CAP PO DAILY PA VITAMIN D-3 2000 UNIT CAPS CHOLECALCIFEROL Inactive PREVACID 30 MG CPDR Take 1 tablet by mouth daily-PRN PREVACID 30 MG CPDR 458220 LANSOPRAZOLE Inactive DOXYCYCLINE HYCLATE 100 MG TAB 1 tab twice a day for 14 days 2013 DOXYCYCLINE HYCLATE 100 MG TAB 0521476 DOXYCYCLINE HYCLATE Inactive XOPENEX 1.25 MG/3ML NEBU 1 neb every 4 hours if needed for cough/congestion XOPENEX 1.25 MG/3ML NEBU 489355 LEVALBUTEROL HCL Inactive CYCLOBENZAPRINE HCL 10 MG TABS 1/2 - 1 tab by mouth three times daily if needed for spasms/pain CYCLOBENZAPRINE HCL 10 MG TABS 283245 CYCLOBENZAPRINE HCL Inactive ALBUTEROL SULFATE 0.083 % NEBU SOLN one vial per nebulizer every 4-6 hours as needed ALBUTEROL SULFATE 0.083 % NEBU SOLN 456423 ALBUTEROL SULFATE Inactive CEFTIN 500 MG TAB 1 twice a day CEFTIN 500 MG TAB 550285 CEFUROXIME AXETIL Inactive ZOFRAN ODT 4 MG TBDP 1 pill dissolved by mouth every 4 hours if needed for nausea ZOFRAN ODT 4 MG TBDP 375731 ONDANSETRON Inactive ADULT ASPIRIN EC LOW STRENGTH 81 MG TBEC Take 1 tablet by mouth daily 2014 ADULT ASPIRIN EC LOW STRENGTH 81 MG TBEC 038038 ASPIRIN Inactive CALCIUM 600+D PLUS MINERALS 600-400 [...] or an apple NIACIN 500 MG TABS 483444 NIACIN Inactive NIASPAN 500 MG ORAL CR-TABS 1 pill nightly x 1 week, then 2 pills nightly x 1 week, then 3 pills nightly x 1 week, then 4 pills nightly NIASPAN 500 MG ORAL CR-TABS NIACIN (ANTIHYPERLIPIDEMIC) Inactive OXYCODONE HCL 5 MG ORAL CAPS 1 TAB PO Q HS OXYCODONE HCL 5 MG ORAL CAPS 8251217 OXYCODONE HCL Inactive FLUTICASONE PROPIONATE 50 MCG/ACT SUSP 1 to 2 sprays each nostril daily 04/21 FLUTICASONE PROPIONATE 50 MCG/ACT SUSP 0500098 FLUTICASONE PROPIONATE Inactive POLYTRIM 88255-1.1 UNIT/ML-% SOLN 1 gtt to affected eye q3h x 7 days POLYTRIM 35805-9.1 UNIT/ML-% SOLN 902176 POLYMYXIN B- TRIMETHOPRIM Inactive CHERATUSSIN AC 100-10 MG/5ML SYRP 1 tsp by mouth every 4 hours as needed for cough CHERATUSSIN AC 100-10 MG/5ML SYRP 492371 GUAIFENESIN-CODEINE Inactive LEVOTHYROXINE SODIUM 75 MCG TABS Take 1 tab daily LEVOTHYROXINE SODIUM 75 MCG TABS 561589 LEVOTHYROXINE SODIUM Inactive CLARITIN 10 MG TAB 1 tablet by mouth daily as needed for allergies CLARITIN 10 MG TAB 314081 LORATADINE Inactive BACTRIM DS 800-160 MG TAB 1 tab by mouth twice daily BACTRIM DS 800-160 MG TAB 873428 TRIMETHOPRIM-SULFAMETHOXAZOLE Inactive AZITHROMYCIN 250 MG TABS 2 po qd x 1 day, then 1 po qd x 4 days AZITHROMYCIN 250 MG TABS 2944125 AZITHROMYCIN Inactive CEFDINIR 300 MG CAPS by mouth twice a day CEFDINIR 300 MG CAPS 296510 CEFDINIR Inactive AZITHROMYCIN 250 MG TABS 2 pills on day 1, then 1 pill daily x 4 days AZITHROMYCIN 250 MG TABS 4635044 AZITHROMYCIN Inactive DOXYCYCLINE HYCLATE 100 MG CAP 1 cap by mouth twice daily DOXYCYCLINE HYCLATE 100 MG CAP 8281846 DOXYCYCLINE HYCLATE Inactive FUROSEMIDE 20 MG TABS 1 pill by mouth daily, for edema FUROSEMIDE 20 MG TABS 930962 FUROSEMIDE Inactive AZITHROMYCIN 250 MG TABS 2 po qd x 1 day, then 1 po qd x 4 days AZITHROMYCIN 250 MG TABS 8459907 AZITHROMYCIN Inactive CEFTIN 500 MG TAB 1 twice a day CEFTIN 500 MG TAB 703930 CEFUROXIME AXETIL Inactive CEFDINIR 300 MG CAPS 1 po BID x 10 days CEFDINIR 300 MG CAPS 486984 CEFDINIR Inactive BACTRIM DS 800-160 MG TAB 1 tab by mouth twice daily BACTRIM DS 800-160 MG TAB 411734 TRIMETHOPRIM-SULFAMETHOXAZOLE Inactive PREDNISONE 20 MG TAB 2 tabs daily for 3 days, 1 tab daily for 3 days, 1/2 tab daily for 2 days PREDNISONE 20 MG TAB 254710 PREDNISONE Inactive PREDNISONE 20 MG TAB take 3 tabs daily for 3 days, 2 tabs daily for 3 days, 1 tab daily for 3 days, 1/2 tab daily for 3 days PREDNISONE 20 MG TAB 987926 PREDNISONE Inactive Immunizations Vaccine Administration Date Value Standard Description Seasonal influenza vaccine, injectable, containing preservative, for > 3 years old (Afluria, FluLaval, Fluzone, Fluvirin, Fluarix, Agriflu(>=18 yo)) Fluzone (>3 yrs.) [[id number]] Influenza, seasonal, injectable influenza immunization (Flu Vax) has been administered Influenza - Unspecified Formulation [CVX88] influenza virus vaccine, unspecified formulation pneumococcal immunization administered Pneumovax 23 [CVX33] pneumococcal polysaccharide vaccine, 23 valent Seasonal influenza vaccine, injectable, containing preservative, for > 3 years old (Afluria, FluLaval, Fluzone, Fluvirin, Fluarix, Agriflu(>=18 yo)) Fluzone (>3 yrs.) [[id number]] Influenza, seasonal, injectable dT (Diphtheria and Tetanus) booster given given Td(adult) unspecified formulation Boostrix (Tetanus toxoid, reduced diphtheria toxoid and acellular pertussis vaccine, adsorbed), booster Boostrix [[id number]] tetanus toxoid, reduced diphtheria toxoid, and acellular pertussis vaccine, adsorbed Vital Signs Date Name Value Unit Range Description blood pressure, diastolic - 8462-4 74 mm[Hg] BP weldon blood pressure, systolic - 8480-6 131 mm[Hg] BP sys height E&M - 8302-2 52.5 [in_us] Bdy height pulse rate E&M - 8867-4 62 /min Heart rate temperature E&M 98.4 [degF] Body temperature weight E&M - 3141-9 248 [lb_av] Weight Measured blood pressure, diastolic - 8462-4 70 mm[Hg] BP weldon blood pressure, systolic - 8480-6 138 mm[Hg] BP sys pulse rate E&M - 8867-4 64 /min Heart rate temperature E&M 98.0 [degF] Body temperature weight E&M - 3141-9 250 [lb_av] Weight Measured blood pressure, diastolic - 8462-4 74 mm[Hg] BP weldon blood pressure, systolic - 8480-6 149 mm[Hg] BP sys pulse rate E&M - 8867-4 54 /min Heart rate temperature E&M 98.0 [degF] Body temperature weight E&M - 3141-9 247 [lb_av] Weight Measured blood pressure, diastolic - 8462-4 90 mm[Hg] BP weldon blood pressure, systolic - 8480-6 150 mm[Hg] BP sys pulse rate E&M - 8867-4 72 /min Heart rate temperature E&M 97.5 [degF] Body temperature weight E&M - 3141-9 248 [lb_av] Weight Measured blood pressure, diastolic - [...] pressure, diastolic - 8462-4 78 mm[Hg] BP welodn blood pressure, systolic - 8480-6 139 mm[Hg] BP sys pulse rate E&M - 8867-4 73 /min Heart rate temperature E&M 98.3 [degF] Body temperature weight E&M - 3141-9 247 [lb_av] Weight Measured Diagnostic Results Date Name Value Unit Range Description Lab Report: Basic Metabolic Panel - Chemistry sodium, serum 142 mmol/L 002-999 6710/06/30 potassium, serum 4.4 mmol/L 3.5-5.2 chloride, serum 108 mmol/L 98-107 carbon dioxide, venous blood 25.1 mmol/L 21.0-32.0 blood glucose 82 mg/dL 65-110 calcium, serum 9.1 mg/dL 8.5-10.1 urea nitrogen, blood 18 mg/dL 7-18 creatinine, serum 1.31 mg/dL 0.55-1.30 Lab Report: Lipid Panel, HEPATIC PANEL - Chemistry cholesterol, serum 166 mg/dL 850-795 9451/12/06 triglyceride, serum, fasting 86 mg/dL 30-200 HDL [...] 5 MCG/MG CREAT mg/L <30 Lab Report: Thyroid Stimulating Hormone (L), Free Thyroxine (L) - Chemistry TSH 0.62 m[iU]/mL 0.36-3.74 thyroxine, serum, free 0.83 ng/dL 0.76-1.46 Lab Report: UADIP W/MICRO, AUTO, CBC W/DIFF, Comp. Metabolic Panel - Chemistry protein, total urine random Negative mg/dL Negative RBC, urine, dipstick Negative Negative sodium, serum 142 mmol/L 279-209 1668/07/18 carbon dioxide, venous blood 27.8 mmol/L 21.0-32.0 [...] pH, urine, semiquantitative 6.5 5.0-8.5 Office Visit: 6 MO F/U - Basic LDL target level 100 mg/dL Office Visit: 6 MO F/U - Chemistry HDL cholesterol, serum, [...] negative Encounters Code Encounter Date Provider Facility CPT-37263 Level 4 Est. Patient 13:18:33 CDT Gab Padron MD [facility] CPT-20484 Level 3 Est. Patient 15:20:50 CDT Jared Og MD [facility] CPT-31165 Level 3 Est. Patient 17:43:55 [employer] Gab Padron MD [facility] CPT-43879 Level 3 Est. Patient 17:07:49 [employer]INE [employer]ER Jared Og MD [facility] CPT-07570 Level 4 Est. Patient 19:55:18 [employer] MACHINE [employer]EDER Jared Og MD [facility] CPT-53133 Level 3 Est. 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 Patient 16:31:27 CDT Gab Padron MD [facility] CPT-74613 Level 2 Est. Patient 12:23:38 CDT Jared Og MD [facility] CPT-34006 Level 3 Est. Patient 11:01:51 CDT Gab Padron MD [facility] CPT-34270 Level 3 Est. Patient 15:27:02 CDT [facility] Level 4 Est. Patient 09:25:27 CDT Gab Padron MD [facility]-48695 Level 3 Est. Patient 10:29:41 CDT Rodrigo Sarah [facility]-89609 Level 4 Est. Patient 17:51:05 CDT Gab Padron MD [facility]-73181 Level 3 Est. Patient 14:18:08 CDT Gab Padron MD [facility]-80740 Level 4 Est. Patient 10:18:54 CDT Gab Padron MD [facility]-73595 Level 3 Est. Patient 11:30:07 CDT Rodrigo Sarah [facility] CPT-85887 Level 4 Est. Patient 21:02:30 [employer]INE [employer]EDER Gab Padron MD [facility]-73601 Level 3 Est. 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 Patient 16:19:11 CDT Yolande Lindsay MD [facility]-31008 Level 3 Est. Patient 18:59:14 CDT Yolande Lindsay MD [facility]-90433 Level 4 Est. Patient 21:29:26 CDT Yolande Lindsay MD [facility]-12163 Level 3 Est. Patient 07:37:45 CDT Yolande Lindsay MD PhD [facility]-11837 Level 3 Est. Patient 17:03:46 CDT Yolande Lindsay MD [facility] CPT-55590 Level 4 Est. 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 Patient 16:02:07 GLASS CUTTING MACHINE FEEDER Alexis Ordaz MD [facility] CPT-01251 Level 3 Est. Patient 12:41:24 GLASS CUTTING MACHINE FEEDER Yoladne Lindsay MD [facility] CPT-73233 Level 3 Est. Patient 15:41:20 GLASS CUTTING MACHINE FEEDER Yolande Lindsay MD [facility] CPT-47141 Level 3 Est. Patient 13:20:02 GLASS CUTTING MACHINE FEEDER Yolande Lindsay MD [facility]-90000 Level 3 Est. Patient 15:00:38 CDT Jared Og MD [facility]-13179 Level 3 Est. Patient 10:22:32 CDT Yolande Lindsay MD [facility] CPT-35082 Level 3 Est. Patient 17:12:58 CDT Yolande Lindsay MD [facility] CPT-23207 Level 4 Est. Patient 13:30:58 CDT Yolande Lindsay MD [facility] CPT-01542 Level 4 New Patient 09:02:42 CDT Jared Og MD [facility]-23164 Level 3 Est. Patient 08:19:07 CDT Yolande Lindsay MD [facility] CPT-42599 Level 3 Est. Patient 12:00:13 GLASS CUTTING MACHINE FEEDER Gab Padron MD [facility] CPT-84408 Level 3 Est. Patient 16:15:23 GLASS CUTTING MACHINE FEEDER Yolande Lindsay MD [facility] CPT-98195 Level 2 Est. Patient 19:47:15 CDT Yolande Lindsay MD [facility]-07650 Level 3 Est. Patient 21:38:31 CDT Yolande Lindasy MD [facility]-01306 Level 3 Est. Patient 10:25:12 CDT Adiel PERAZA [facility]-04445 Level 4 Est. Patient 10:51:58 CDT Yolande Lindsay MD [facility]-92148 Level 3 Est. Patient 14:04:55 GLASS CUTTING MACHINE FEEDER Rodrigo Sarah [facility]-67784 Level 3 Est. Patient 10:46:35 GLASS CUTTING MACHINE FEEDER Rodrigo [facility]-32485 Level 3 Est. Patient 14:24:37 GLASS CUTTING MACHINE FEEDER Yolande Lindsay MD [facility]-72054 Level 3 Est. Patient 17:41:58 GLASS CUTTING MACHINE FEEDER Yolande Lindsay MD [facility]-96922 Level 2 Est. Patient 22:01:41 GLASS CUTTING MACHINE FEEDER Rodrigo Sarah [facility] CPT-09277 Level 2 Est. Patient 22:01:11 GLASS CUTTING MACHINE FEEDER Silvestrellnacho [facility]-62328 Level 3 Est. Patient 10:12:29 GLASS CUTTING MACHINE FEEDER Rodrigo Sarah [facility] CPT-78541 Level 3 Est. Patient 11:05:44 CDT Alexis Ordaz MD [facility]-85850 Level 3 Est. Patient 14:57:20 CDT Yolande Lindsay MD [facility]-09103 Level 3 Est. Patient 14:40:57 CDT Yolande Lindsay MD [facility]-13407 Level 3 Est. Patient 20:55:40 CDT Yolande Lindsay MD [facility]-24376 Level 3 Est. Patient 12:42:38 GLASS CUTTING MACHINE FEEDER Yolande Lindsay MD PhD [facility] CPT-45497 Level 3 Est. Patient 11:54:49 GLASS CUTTING MACHINE FEEDER Des Hines MD [facility] CPT-84933 Level 3 Est. Patient 17:06:38 CDT Dewayne PERAZA [facility] Procedures Code Procedure Name Date Entry Date Standard Description CPT-J2930 Solu Medrol 125 mg (Methyl Prednisolone Sodium Succinate) 13:19:02 CDT CPT-32004 Abx/Therapy Injection 13:19:02 CDT CPT-J2930 Solu Medrol 125 mg (Methyl Prednisolone Sodium Succinate) 13:05:03 CDT CPT-47484 Hip, complete, 2-3 views - XRAY USE ONLY 17:19:04 GLASS CUTTING MACHINE FEEDER CPT-65155 Venipuncture Draw Fee 08:37:59 GLASS CUTTING MACHINE FEEDER CPT-44650 Liver Profile - LAB USE ONLY 08:37:59 GLASS CUTTING MACHINE FEEDER CPT-25568 Lipid - LAB USE ONLY 08:37:58 GLASS CUTTING MACHINE FEEDER CPT-68985 First Vx - Ix admin via ID IM or jet injects without counseling by physician 11:52:31 CDT CPT-81445 Fluzone Preservative Free Intramuscular Suspension 11:52 :31 CDT CPT-40447 Foot, left, comp min 3V - XRAY USE ONLY 09:24:54 CDT CPT-73482 Abd single AP View - XRAY USE ONLY 11:16:17 CDT CPT-89623 T spine AP/ Lat - XRAY USE ONLY 09:34:21 CDT CPT-83118 Chest 2V Frontal and Lat - XRAY USE ONLY 10:48:51 CDT CPT-69078 LS spine comp w obliq 13:28:00 GLASS CUTTING MACHINE FEEDER CPT-J1040 Depo Medrol 80 mg (Methyl Prednisolone Acetate) 10:51: 28 GLASS CUTTING MACHINE FEEDER CPT-J1100 Decadron 8mg (Dexamethasone) 10:51:28 GLASS CUTTING MACHINE FEEDER CPT-96872 Abx/Therapy Injection 10:51:28 GLASS CUTTING MACHINE FEEDER CPT-J1100 Decadron 8mg (Dexamethasone) 21:02:30 GLASS CUTTING MACHINE FEEDER CPT-J1040 Depo Medrol 80 mg (Methyl Prednisolone Acetate) 21:02: 30 GLASS CUTTING MACHINE FEEDER [id number] Event Monitor - MC Transmission 09:12:32 CDT 08/06 [id number] Event Monitor - MC review and interp 09:12:32 CDT [id number] Event Monitor - MC recording 09:12:32 CDT CPT-64510 EKG Trac and Interp 16:50:22 CDT CPT-J1030 Depo Medrol 40 mg (Methyl Prednisolone Acetate) 17:05: 54 CDT CPT-J1100 Decadron 4mg (Dexamethasone) 17:05:54 CDT CPT-24629 Abx/Therapy Injection 17:05:54 CDT CPT-J1100 Decadron 4mg (Dexamethasone) 16:55:28 CDT CPT-J1030 Depo Medrol 40 mg (Methyl Prednisolone Acetate) 16:55: 28 CDT CPT-92401 Ankle Complete - Min 3V 15:58:50 CDT CPT-06749 Knee 3V 15:58:50 CDT CPT-18380 Hip comp min 2V 15:58:50 CDT CPT-J2270 Morphine Sulfate 10 mg 14:25:44 GLASS CUTTING MACHINE FEEDER CPT-J2550 Phenergan 12.5 mg (Promethazine) 14:25:44 GLASS CUTTING MACHINE FEEDER CPT-16325 Abx/Therapy Injection 14:25:44 GLASS CUTTING MACHINE FEEDER CPT-J2550 Phenergan 12.5 mg (Promethazine) 14:08:03 GLASS CUTTING MACHINE FEEDER CPT-J2270 Morphine Sulfate 10 mg 14:08:03 GLASS CUTTING MACHINE FEEDER CPT-18594 Bladder Scan 15:00:38 CDT CPT-TCMM Transitional Care Mgmt-Moderate 09:52:22 CDT CPT-J1030 Depo Medrol 40 mg (Methyl Prednisolone Acetate) 10:55: 18 CDT CPT-J1100 Decadron 4mg (Dexamethasone) 10:55:18 CDT CPT-22991 Abx/Therapy Injection 10:55:18 CDT CPT-J1030 Depo Medrol 40 mg (Methyl Prednisolone Acetate) 10:22: 32 CDT CPT-J1100 Decadron 4mg (Dexamethasone) 10:22:32 CDT CPT-82273 Postop F/U Visit 14:37:13 CDT CPT-06616 Ankle Complete - Min 3V 17:11:58 CDT CPT-52975 Foot comp min 3V 17:11:58 CDT CPT-79333 Bladder Scan 09:56:58 CDT CPT-79863 Postop F/U Visit 09:56:58 CDT CPT-31480 Cystoscopy 09:02:42 CDT CPT-14263 Bladder Scan 09:02:42 CDT CPT-97545 Abd single AP View 16:00:35 CDT CPT-70057 Administration single or combination vaccine inc oral 10 :15:43 CDT CPT-83172 Influenza split virus > age 3 10:15:43 CDT CPT-64142 Nail Avulsion 09:24:57 CDT CPT-OV Office Visit 11:15:41 CDT CPT-86041 Abx/Therapy Injection 10:51:30 CDT CPT-J3301 Kenalog 40 mg (Triamcinolone Acetonide) 10:25:12 CDT CPT-J1100 Decadron 4mg (Dexamethasone) 10:25:12 CDT CPT-00465 Anoscopy diagnostic 10:36:12 CDT CPT-OV Office Visit 15:34:31 CDT CPT-43010 Abx/Therapy Injection 08:21:15 GLASS CUTTING MACHINE FEEDER CPT-J1885 Toradol 60 mg (Ketorolac) 10:46:35 GLASS CUTTING MACHINE FEEDER CPT-OV Office Visit 19:51:16 GLASS CUTTING MACHINE FEEDER CPT-82475 Spec Collection and Handling Fee 14:34:18 GLASS CUTTING MACHINE FEEDER CPT-PV Prev. Care Visit 14:19:18 GLASS CUTTING MACHINE FEEDER CPT-81852 Postop F/U Visit 14:47:51 GLASS CUTTING MACHINE FEEDER CPT-92901 Postop F/U Visit 15:15:14 GLASS CUTTING MACHINE FEEDER CPT-04792 Postop F/U Visit 14:41:43 CDT CPT-54106 Postop F/U Visit 15:47:46 CDT CPT-OV Office Visit 15:27:23 CDT CPT-OV Office Visit 17:20:34 CDT CPT-49887 Abx/Therapy Injection 15:05:57 CDT CPT-J1100 Decadron 8mg (Dexamethasone) 14:44:57 CDT CPT-J1040 Depo Medrol 80 mg (Methyl Prednisolone Acetate) 14:44: 57 CDT CPT-JTINJ Joint Injection 10:17:37 CDT CPT-94358 Administration 2+ single or combination vaccines inc oral 13:01:46 GLASS CUTTING MACHINE FEEDER CPT-10238 Administration single or combination vaccine inc oral 13 :01:46 GLASS CUTTING MACHINE FEEDER CPT-39479 Pneumovax 13:01:46 GLASS CUTTING MACHINE FEEDER CPT-08750 Influenza split virus > age 3 13:01:46 GLASS CUTTING MACHINE FEEDER CPT-64795 Administration single or combination vaccine inc oral 08 :56:49 CDT CPT-07186 Tdap 08:56:49 CDT
--- OUTSIDE RECORDS SUMMARY | 2017-03-21 19:44 | XMS REPORT ---
Author Author [facility] Medical Staff Organization [facility] Address [address] [id number] Phone [phone] Care Team Providers Care International Student Counselor Name Role Phone EVELYN SPEARS MD PP [phone] Summary purpose TRANSITION OF CARE AUTO GENERATION Chief Complaint and Reason for Visit No authorized Reason for Visit (Admitting Diagnosis) is available for this visit. Problem list No authorized problems tracked for continuity of care are available for this visit. Encounters No authorized problems tracked for encounter diagnoses are available for this visit. Medications No medications recorded for this patient visit Allergies, adverse reactions, alerts Allergen Category Ingredient Status Reaction Severity Onset Penicillins Drug Allergy Penicillins Confirmed or Verified Hives Penicillins Drug Allergy Penicillins Confirmed or Verified Nausea Trazodone Drug Allergy Trazodone Confirmed or Verified hallucinations bee venom (honey bee) Drug Allergy bee venom (honey bee) Confirmed or Verified POPPY SEEDS Food Allergy POPPY SEEDS Confirmed or Verified throat swelling Hydrocodone Drug Allergy Hydrocodone Confirmed but Inactive Nausea Oxycodone Drug Allergy Oxycodone Confirmed or Verified Nausea lemon pepper Food Allergy lemon pepper Confirmed or Verified throat swelling sheeps milk Food Allergy sheeps milk Confirmed or Verified Hives sheeps milk Food Allergy sheeps milk Confirmed or Verified Nausea Norflex Drug Allergy Norflex Confirmed or Verified Norflex Drug Allergy orphenadrine Confirmed or Verified chlorhexidine Drug Allergy chlorhexidine Confirmed or Verified niacin Drug Allergy niacin Confirmed or Verified Immunizations No immunizations recorded for this patient visit Relevant diagnostic tests and/or laboratory data No authorized results are available for this patient visit History of procedures No procedures recorded for this patient visit. Functional status No functional or cognitive status observations are available for this visit. Vital signs No authorized vital signs are available for this visit. Social history No Social History or smoking status observations were recorded for this visit. ( Unknown if ever smoked.) Treatment Plan No treatment plan text is available for this visit. Hospital discharge instructions No discharge instruction text is available for this visit.
[2017-03-21] MEDS ORDERED: ALPRAZolam 0.5 MG (XANAX) TAB PO PRN (19:45)
[2017-03-21] MEDS ORDERED: SENNA W/DOCUSATE (SENOKOT S) TABLET PO PRN (19:45)
--- OUTSIDE RECORDS SUMMARY | 2017-03-21 19:46 | XMS REPORT | Clinical Summary ---
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 TRAZODONE HCL sees things Critical Active Dewayne [...] infarction, hx of 412 Active Hoa Otto [facility] Old myocardial infarction Pelvic pain 789.09 Active Yolande Lindsay MD PhD Abdominal pain, other specified site; multiple sites Edema 782.3 Active Yolande Lindsay MD PhD Edema Rash 782.1 Active Yolande Lindsay MD PhD Rash and other nonspecific skin eruption Back pain, lumbar 724.2 Active Gab Padron MD Lumbago Cough 786.2 Active Jillina Tyrel [employer] Cough 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 Jillina Frazellilian ZAPATAN 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 Anemia 285.9 Active Gab Padron MD Anemia, unspecified Conjunctivitis 372.30 Active Jillnacho Sarah APRN Conjunctivitis, unspecified Sinusitis 473.9 Active Jillina Frazell [employer] Unspecified sinusitis (chronic) Nonspecific syndrome suggestive of viral illness 079.99 Active Rodrigo Sarah [employer] LIN[employer]ER Unspecified viral infection Laryngitis 464.00 Active Rodrigo [...] MCG/DOSE AEPB 1 puff BID FLUTICASONE- SALMETEROL 25501688526 Active Rodrigo Sarah [employer] LINING BLOCKER Active LEVOTHYROXINE SODIUM 75 MCG TABS Take 1 tab daily LEVOTHYROXINE SODIUM 24065571014 No Longer Active Mariana HICKEYA Active SYNTHROID 88 MCG ORAL TABS Take one by mouth daily LEVOTHYROXINE SODIUM 77204570733 Active Mariana HICKEYA Active CHERATUSSIN AC 100-10 MG/5ML SYRP 1 tsp by mouth every 4 hours as needed for cough GUAIFENESIN-CODEINE 05833708302 No Longer Active Gab Padron MD Active POLYTRIM 65327-2.1 UNIT/ML-% SOLN 1 gtt to affected eye q3h x 7 days POLYMYXIN B-TRIMETHOPRIM 62616260165 No Longer Active Gab Padron MD Active FLUTICASONE PROPIONATE 50 MCG/ACT SUSP 1 to 2 sprays each nostril daily 04/21 FLUTICASONE PROPIONATE 04470518101 No Longer Active Gab Padron MD Active TRILEPTAL 600 MG TABS Take one 1 tablet in Am and 1 tablet at night OXCARBAZEPINE 91401734449 Active Gab Padron MD Active CEFDINIR 300 MG CAPS 1 po BID x 10 days CEFDINIR 12721198485 No Longer Active Rodrigo Sarah APRN Active CEFTIN 500 MG TAB 1 twice a day CEFUROXIME AXETIL 69781222873 No Longer Active Gab Padron MD Active AZITHROMYCIN 250 MG TABS 2 po qd x 1 day, then 1 po qd x 4 days AZITHROMYCIN 05059393622 No Longer Active Rodrigo Sarah APRN Active CLARITIN 10 MG TAB 1 tablet by mouth daily as needed for allergies LORATADINE 26807578624 Active Silvestrellnacho Sarah APRN Active OXYCODONE HCL 5 MG ORAL CAPS 1 TAB PO Q HS OXYCODONE HCL 01882746327 No Longer Active Rodrigo Sarah APRN Active NIASPAN 500 MG ORAL CR-TABS 1 pill nightly x 1 week, then 2 pills nightly x 1 week, then 3 pills nightly x 1 week, then 4 pills nightly NIACIN (ANTIHYPERLIPIDEMIC) 29725384680 No Longer Active Silvestrellnacho Sarah APRN Active NIACIN 500 MG TABS 1 pill by mouth nightly x 1 week, then 2 pills x 1 week, then 3 pills x 1 week, then 4 pills nightly - take after evening meal, with applesauce or an apple NIACIN 11601912078 No Longer Active Yolande Lindsay MD PhD Active FISH OIL 1000 MG CAPS 3 pills daily OMEGA-3 FATTY ACIDS 86522697081 Active Yolande Lindsay MD PhD Active TRIAMCINOLONE ACETONIDE 0.1 % CREA apply bid sparingly to rash TRIAMCINOLONE ACETONIDE 34377884923 Active Yolande Lindsay MD PhD Active FUROSEMIDE 20 MG TAB 1 tablet by mouth daily FUROSEMIDE 34882758955 Active Yolande Lindsay MD PhD Active LISINOPRIL 20 MG ORAL TABS 1 tab by mouth daily LISINOPRIL 11641774161 Active Gab Padron MD Active FUROSEMIDE 20 MG TABS 1 pill by mouth daily, for edema FUROSEMIDE 63678922295 No Longer Active Yolande Lindsay MD PhD Active ATORVASTATIN CALCIUM 10 MG TABS 1 pill by mouth daily, for cholesterol 09/06 ATORVASTATIN CALCIUM 83312569264 Active Yolande Lindsay MD PhD Active CALCIUM 600+D PLUS MINERALS 600-400 MG-UNIT ORAL CHEW 1 tab by mouth daily CALCIUM CARBONATE-VIT D-MIN 66173221607 No Longer Active Yolande Lindsay MD PhD Active CYCLOBENZAPRINE HCL 10 MG TABS 1 tablet by mouth three times daily as needed for muscle spasm/pain CYCLOBENZAPRINE HCL 16245003823 Active Yolande Lindsay MD PhD Active ONDANSETRON 4 MG TBDP 1 q4h PRN nausea ONDANSETRON 86277957296 Active Yolande Lindsay MD PhD Active ADULT ASPIRIN EC LOW STRENGTH 81 MG TBEC Take 1 tablet by mouth daily 2014 ASPIRIN 17254739858 No Longer Active Yolande Lindsay MD PhD Active ZOFRAN ODT 4 MG TBDP 1 pill dissolved by mouth every 4 hours if needed for nausea ONDANSETRON 60878689389 No Longer Active Yolande Lindsay MD PhD Active CEFTIN 500 MG TAB 1 twice a day CEFUROXIME AXETIL 35338967960 No Longer Active Yolande Lindsay MD PhD Active ALBUTEROL SULFATE 0.083 % NEBU SOLN one vial per nebulizer every 4-6 hours as needed ALBUTEROL SULFATE 46692469664 No Longer Active Alexis Ordaz MD Active DOXYCYCLINE HYCLATE 100 MG CAP 1 cap by mouth twice daily DOXYCYCLINE HYCLATE 29286161187 No Longer Active Yolande Lindsay MD PhD Active CYCLOBENZAPRINE HCL 10 MG TABS 1/2 - 1 tab by mouth three times daily if needed for spasms/pain CYCLOBENZAPRINE HCL 64079387190 No Longer Active Yolande Lindsay MD PhD Active AZITHROMYCIN 250 MG TABS 2 pills on day 1, then 1 pill daily x 4 days AZITHROMYCIN 54105505201 No Longer Active Yolande Lindsay MD PhD Active XOPENEX 1.25 MG/3ML NEBU 1 neb every 4 hours if needed for cough/congestion LEVALBUTEROL HCL 18877815107 No Longer Active Yolande Lindsay MD PhD Active DOXYCYCLINE HYCLATE 100 MG TAB 1 tab twice a day for 14 days 2013 DOXYCYCLINE HYCLATE 60853508266 No Longer Active Yolande Lindsay MD PhD Active PREVACID 30 MG CPDR Take 1 tablet by mouth daily-PRN LANSOPRAZOLE 64333602192 No Longer Active Yolande Lindsay MD PhD Active PA VITAMIN D-3 2000 UNIT CAPS 1 CAP PO DAILY CHOLECALCIFEROL 03699324014 No Longer Active Yolande Lindsay MD PhD Active CEFDINIR 300 MG CAPS by mouth twice a day CEFDINIR 59930783009 No Longer Active Gab Padron MD Active TOPAMAX 50 MG TABS 1 PO twice daily TOPIRAMATE 41239516887 Active Yolande Lindsay MD PhD Active AZITHROMYCIN 250 MG TABS 2 po qd x 1 day, then 1 po qd x 4 days AZITHROMYCIN 19643192912 No Longer Active Yolande Lindsay MD PhD Active DICLOFENAC SODIUM 75 MG TBEC 1 tablet by q 12 hours PRN headaches DICLOFENAC SODIUM 15178136551 No Longer Active Yolande Lindsay MD PhD Active FLONASE 50 MCG/ACT SUSP 1 spray each nostril am and hs FLUTICASONE PROPIONATE 24007083117 No Longer Active Todd Callaway MD Active ANUSOL-HC 25 MG SUPPOSITORY 1 rectally twice a day as needed for hemorrhoids HYDROCORTISONE JAYDEN (RECTAL) 09915315698 No Longer Active Yolande Lindsay MD PhD Active ANUSOL-HC 25 MG SUPPOSITORY 1 suppository rectally each evening as needed for anal fissure HYDROCORTISONE JAYDEN (RECTAL) 23276191490 No Longer Active LONNIE Iglesias Active VALIUM 5 MG TAB 1 po 30 minutes prior to your MRI DIAZEPAM 48755409371 No Longer Active LONNIE Iglesias Active METHOCARBAMOL 750 MG TABS 1 PO QID PRN METHOCARBAMOL 78973533013 No Longer Active Daphne Wetzel APRN Active NITROSTAT 0.4 MG SUBL as directed NITROGLYCERIN 78945864920 No Longer Active Rodrigo Sarah APRN Active ROBAXIN-750 750 MG TABS 2 four times a day for 3 days as needed for muscle spasm, then 1 four times a day as needed METHOCARBAMOL 11706681087 No Longer Active Rodrigo Sarah APRN Active HYDROCODONE-ACETAMINOPHEN 5-325 MG TABS 1 q 4-6 hrs prn HYDROCODONE-ACETAMINOPHEN 73637852888 No Longer Active Rodrigo Sarah APRN Active VERAPAMIL HCL CR 180 MG CR-TABS TAKE 1 TAB DAILY VERAPAMIL HCL 56891256292 No Longer Active Yolande Lindsay MD PhD Active BACTRIM DS 800-160 MG TAB 1 tab by mouth twice daily TRIMETHOPRIM-SULFAMETHOXAZOLE 37293640129 No Longer Active Yolande Lindsay MD PhD Active NEXIUM 40 MG PACK 1 by mouth daily ESOMEPRAZOLE MAGNESIUM 13609353650 No Longer Active Des Hines MD Active EPIPEN 2-CHARLETTE 0.3 MG/0.3ML OMARI as need for allergic reaction EPINEPHRINE 12745980386 Active Yolande Lindsay MD PhD Active NEXIUM 40 MG CPDR 1 PO Q D DAY ESOMEPRAZOLE MAGNESIUM 37151864040 No Longer Active Sadia Perry RN Active NEXIUM 40 MG PACK 1 by mouth daily NEXIUM 40 MG PACK ESOMEPRAZOLE MAGNESIUM Inactive VERAPAMIL HCL CR 180 MG CR-TABS TAKE 1 TAB DAILY VERAPAMIL HCL CR 180 MG CR-TABS VERAPAMIL HCL Inactive HYDROCODONE-ACETAMINOPHEN 5-325 MG TABS 1 q 4-6 hrs prn HYDROCODONE-ACETAMINOPHEN 5-325 MG TABS 236383 HYDROCODONE-ACETAMINOPHEN Inactive ROBAXIN-750 750 MG TABS 2 four times a day for 3 days as needed for muscle spasm, then 1 four times a day as needed ROBAXIN-750 750 MG TABS 438512 METHOCARBAMOL Inactive NITROSTAT 0.4 MG SUBL as directed NITROSTAT 0.4 MG SUBL NITROGLYCERIN Inactive METHOCARBAMOL 750 MG TABS 1 PO QID PRN METHOCARBAMOL 750 MG TABS 754973 METHOCARBAMOL Inactive VALIUM 5 MG TAB 1 po 30 minutes prior to your MRI VALIUM 5 MG TAB 182117 DIAZEPAM Inactive ANUSOL-HC 25 MG SUPPOSITORY 1 suppository rectally each evening as needed for anal fissure ANUSOL-HC 25 MG SUPPOSITORY 2085625 HYDROCORTISONE JAYDEN (RECTAL) Inactive ANUSOL-HC 25 MG SUPPOSITORY 1 rectally twice a day as needed for hemorrhoids ANUSOL-HC 25 MG SUPPOSITORY 4253885 HYDROCORTISONE JAYDEN (RECTAL) Inactive FLONASE 50 MCG/ACT SUSP 1 spray each nostril am and hs FLONASE 50 MCG/ACT SUSP FLUTICASONE PROPIONATE Inactive DICLOFENAC SODIUM 75 MG TBEC 1 tablet by q 12 hours PRN headaches DICLOFENAC SODIUM 75 MG TBEC 413999 DICLOFENAC SODIUM Inactive PA VITAMIN D-3 2000 UNIT CAPS 1 CAP PO DAILY PA VITAMIN D-3 2000 UNIT CAPS CHOLECALCIFEROL Inactive PREVACID 30 MG CPDR Take 1 tablet by mouth daily-PRN PREVACID 30 MG CPDR 673720 LANSOPRAZOLE Inactive DOXYCYCLINE HYCLATE 100 MG TAB 1 tab twice a day for 14 days 2013 DOXYCYCLINE HYCLATE 100 MG TAB 9160040 DOXYCYCLINE HYCLATE Inactive XOPENEX 1.25 MG/3ML NEBU 1 neb every 4 hours if needed for cough/congestion XOPENEX 1.25 MG/3ML NEBU 464607 LEVALBUTEROL HCL Inactive CYCLOBENZAPRINE HCL 10 MG TABS 1/2 - 1 tab by mouth three times daily if needed for spasms/pain CYCLOBENZAPRINE HCL 10 MG TABS 256940 CYCLOBENZAPRINE HCL Inactive ALBUTEROL SULFATE 0.083 % NEBU SOLN one vial per nebulizer every 4-6 hours as needed ALBUTEROL SULFATE 0.083 % NEBU SOLN 933448 ALBUTEROL SULFATE Inactive CEFTIN 500 MG TAB 1 twice a day CEFTIN 500 MG TAB 821564 CEFUROXIME AXETIL Inactive ZOFRAN ODT 4 MG TBDP 1 pill dissolved by mouth every 4 hours if needed for nausea ZOFRAN ODT 4 MG TBDP 560275 ONDANSETRON Inactive ADULT ASPIRIN EC LOW STRENGTH 81 MG TBEC Take 1 tablet by mouth daily 2014 ADULT ASPIRIN EC LOW STRENGTH 81 MG TBEC 569754 ASPIRIN Inactive CALCIUM 600+D PLUS MINERALS 600-400 [...] or an apple NIACIN 500 MG TABS 766901 NIACIN Inactive NIASPAN 500 MG ORAL CR-TABS 1 pill nightly x 1 week, then 2 pills nightly x 1 week, then 3 pills nightly x 1 week, then 4 pills nightly NIASPAN 500 MG ORAL CR-TABS NIACIN (ANTIHYPERLIPIDEMIC) Inactive OXYCODONE HCL 5 MG ORAL CAPS 1 TAB PO Q HS OXYCODONE HCL 5 MG ORAL CAPS 0885695 OXYCODONE HCL Inactive FLUTICASONE PROPIONATE 50 MCG/ACT SUSP 1 to 2 sprays each nostril daily 04/21 FLUTICASONE PROPIONATE 50 MCG/ACT SUSP 489288 FLUTICASONE PROPIONATE Inactive POLYTRIM 48614-3.1 UNIT/ML-% SOLN 1 gtt to affected eye q3h x 7 days POLYTRIM 72058-0.1 UNIT/ML-% SOLN 502192 POLYMYXIN B- TRIMETHOPRIM Inactive CHERATUSSIN AC 100-10 MG/5ML SYRP 1 tsp by mouth every 4 hours as needed for cough CHERATUSSIN AC 100-10 MG/5ML SYRP 284723 GUAIFENESIN-CODEINE Inactive LEVOTHYROXINE SODIUM 75 MCG TABS Take 1 tab daily LEVOTHYROXINE SODIUM 75 MCG TABS 150142 LEVOTHYROXINE SODIUM Inactive BACTRIM DS 800-160 MG TAB 1 tab by mouth twice daily BACTRIM DS 800-160 MG TAB 449324 TRIMETHOPRIM-SULFAMETHOXAZOLE Inactive AZITHROMYCIN 250 MG TABS 2 po qd x 1 day, then 1 po qd x 4 days AZITHROMYCIN 250 MG TABS 7406816 AZITHROMYCIN Inactive CEFDINIR 300 MG CAPS by mouth twice a day CEFDINIR 300 MG CAPS 732385 CEFDINIR Inactive AZITHROMYCIN 250 MG TABS 2 pills on day 1, then 1 pill daily x 4 days AZITHROMYCIN 250 MG TABS 9771965 AZITHROMYCIN Inactive DOXYCYCLINE HYCLATE 100 MG CAP 1 cap by mouth twice daily DOXYCYCLINE HYCLATE 100 MG CAP 3594087 DOXYCYCLINE HYCLATE Inactive FUROSEMIDE 20 MG TABS 1 pill by mouth daily, for edema FUROSEMIDE 20 MG TABS 976081 FUROSEMIDE Inactive AZITHROMYCIN 250 MG TABS 2 po qd x 1 day, then 1 po qd x 4 days AZITHROMYCIN 250 MG TABS 0505039 AZITHROMYCIN Inactive CEFTIN 500 MG TAB 1 twice a day CEFTIN 500 MG TAB 311438 CEFUROXIME AXETIL Inactive CEFDINIR 300 MG CAPS 1 po BID x 10 days CEFDINIR 300 MG CAPS 351859 CEFDINIR Inactive Immunizations Vaccine Administration Date Value Standard Description Seasonal influenza vaccine, injectable, containing preservative, for > 3 years old (Afluria, FluLaval, Fluzone, Fluvirin, Fluarix, Agriflu(>=18 yo)) Fluzone (>3 yrs.) [MFW563] Influenza, seasonal, injectable influenza immunization (Flu Vax) has been administered Influenza - Unspecified Formulation [CVX88] influenza virus vaccine, unspecified formulation Seasonal influenza vaccine, injectable, containing preservative, for > 3 years old (Afluria, FluLaval, Fluzone, Fluvirin, Fluarix, Agriflu(>=18 yo)) Fluzone (>3 yrs.) [KWV205] Influenza, seasonal, injectable pneumococcal immunization administered Pneumovax 23 [CVX33] pneumococcal polysaccharide vaccine, 23 valent dT (Diphtheria and Tetanus) booster given given Td(adult) unspecified formulation Boostrix (Tetanus toxoid, reduced diphtheria toxoid and acellular pertussis vaccine, adsorbed), booster Boostrix [KBT797] tetanus toxoid, reduced diphtheria toxoid, and acellular [...] pressure, diastolic - 8462-4 75 mm[Hg] BP wedlon blood pressure, systolic - 8480-6 126 mm[Hg] [...] Panel - Chemistry sodium, serum 145 mmol/L 263-560 2972/06/22 potassium, serum 3.9 mmol/L 3.5-5.2 chloride, serum 109 mmol/L 98-107 carbon dioxide, venous blood 23.4 mmol/L 21.0-32.0 blood glucose 92 mg/dL 65-110 calcium, serum 8.2 mg/dL 8.5-10.1 urea nitrogen, blood 24 mg/dL 7-18 creatinine, serum 1.30 mg/dL 0.60-1.30 Lab Report: [facility] Advanced Lipid and Inlammation Panel /30251 - Chemistry cholesterol, serum 198 mg/dL 986-201 7603/04/30 HDL cholesterol, serum 65 mg/dL > OR=46 triglyceride, serum, fasting 82 mg/dL LDL cholesterol, serum 117 mg/dL cholesterol/HDL ratio, serum 3.0 calc < OR=5.0 cholesterol, serum 148 mg/dL 549-787 8945/09/02 HDL cholesterol, serum 55 mg/dL > OR=46 [...] (L) - Chemistry sodium, serum 145 mmol/L 406-440 0510/09/02 potassium, serum 4.6 mmol/L 3.5-5.2 chloride, serum [...] Rate - Chemistry sodium, serum 139 mmol/L 980-317 3366/03/24 carbon dioxide, venous blood 22.4 mmol/L 21.0-32.0 [...] 51 mg/dL 30-200 cholesterol, serum 173 mg/dL 754-322 4392/04/28 HDL cholesterol, serum 63 mg/dL 32-96 LDL [...] mg/dL Encounters Code Encounter Date Provider Facility CPT-33936 Level 3 Est. Patient 11:30:07 CDT Rodrigo Sarah APRN [facility] CPT-43308 Level 4 Est. Patient 21:02:30 [employer] Gab Padron MD [facility] CPT-41371 Level 3 Est. Patient 11:02:19 [employer] Gab Padron MD [facility] CPT-21046 Level 4 Est. Patient 22:24:31 [employer] Gab Padron MD [facility] CPT-33720 Level 3 Est. Patient 18:33:46 [employer] Gab Padron MD [facility] CPT-75024 Level 3 Est. Patient 16:19:11 CDT Yolande Lindsay MD PhD [facility] CPT-39602 Level 3 Est. Patient 18:59:14 CDT Yolande Lindsay MD PhD [facility] CPT-53702 Level 4 Est. Patient 21:29:26 CDT Yolande Lindsay MD PhD [facility] CPT-13640 Level 3 Est. Patient 07:37:45 CDT Yolande Lindsay MD PhD [facility]-45033 Level 3 Est. Patient 17:03:46 CDT Yolande Lindsay MD [facility]-06731 Level 4 Est. Patient 20:02:13 [employer] Yolande Lindsay MD [facility]-42831 Level 3 Est. Patient 16:02:07 [employer] Alexis Ordaz MD [facility]-76324 Level 3 Est. Patient 12:41:24 [employer] Yolande Lindsay MD [facility]-17298 Level 3 Est. Patient 15:41:20 [employer] Yolande Lindsay MD [facility]-54209 Level 3 Est. Patient 13:20:02 [employer] Yolande Lindsay MD [facility]-05472 Level 3 Est. Patient 15:00:38 CDT Jared Og MD [facility]-71111 Level 3 Est. Patient 10:22:32 CDT Yolande Lindsay MD [facility] CPT-00331 Level 3 Est. Patient 17:12:58 CDT Yolande Lindsay MD [facility]-88701 Level 4 Est. Patient 13:30:58 CDT Yolande Lindsay MD [facility] CPT-83475 Level 4 New Patient 09:02:42 CDT Jared Og MD [facility]-82147 Level 3 Est. Patient 08:19:07 CDT Yolande Lindsay MD [facility]-78994 Level 3 Est. Patient 12:00:13 [employer] Gab Padron MD [facility]-17058 Level 3 Est. Patient 16:15:23 [employer] Yolande Lindsay MD [facility]-16292 Level 2 Est. Patient 19:47:15 CDT Yolande Lindsay MD [facility]-50537 Level 3 Est. Patient 21:38:31 CDT Yolande Lindsay MD [facility]-56843 Level 3 Est. Patient 10:25:12 CDT Adiel Rodríguezozzie PERAZA [facility]-48233 Level 4 Est. Patient 10:51:58 CDT Yolande Lindsay MD [facility]18149 Level 3 Est. Patient 14:04:55 [employer] Rodrigo Sarah [facility]-88752 Level 3 Est. Patient 10:46:35 [employer] Rodrigo Sarah [facility]-21693 Level 3 Est. Patient 14:24:37 [employer] Yolande Lindsay MD [facility]-03679 Level 3 Est. Patient 17:41:58 [employer] Yolande Lindsay MD [facility]-35404 Level 2 Est. Patient 22:01:41 [employer] Rodrigo Sarah [facility]-83848 Level 2 Est. Patient 22:01:11 [employer] Rodrigo Sarah [facility]-04252 Level 3 Est. Patient 10:12:29 [employer] Rodrigo Sarah [facility]-58873 Level 3 Est. Patient 11:05:44 CDT Alexis Ordaz MD [facility]-71091 Level 3 Est. Patient 14:57:20 CDT Yolande Lindsay MD [facility]46161 Level 3 Est. Patient 14:40:57 CDT Yolande Lindsay MD [facility]07671 Level 3 Est. Patient 20:55:40 CDT Yolande Lindsay MD PhD [facility] CPT-72223 Level 3 Est. Patient 12:42:38 [employer] Yolande Lindsay MD PhD [facility] CPT-42634 Level 3 Est. Patient 11:54:49 [employer] Des Hines MD [facility] CPT-31993 Level 3 Est. Patient 17:06:38 CDT Dewayne PERAZA [facility] Procedures Code Procedure Name Date Entry Date Standard Description CPT-40983 LS spine comp w obliq 13:28:00 [employer] CPT-J1040 Depo Medrol 80 mg (Methyl Prednisolone Acetate) 10:51: 28 [employer] CPT-J1100 Decadron 8mg (Dexamethasone) 10:51:28 [employer] CPT-12660 Abx/Therapy Injection 10:51:28 [employer] CPT-J1100 Decadron 8mg (Dexamethasone) 21:02:30 [employer] CPT-J1040 Depo Medrol 80 mg (Methyl Prednisolone Acetate) 21:02: 30 [employer] [id number] Event Monitor - MC Transmission 09:12:32 CDT 08/06 [id number] Event Monitor - MC review and interp 09:12:32 CDT [id number] Event Monitor - MC recording 09:12:32 CDT CPT-70624 EKG Trac and Interp 16:50:22 CDT CPT-J1030 Depo Medrol 40 mg (Methyl Prednisolone Acetate) 17:05: 54 CDT CPT-J1100 Decadron 4mg (Dexamethasone) 17:05:54 CDT CPT-89088 Abx/Therapy Injection 17:05:54 CDT CPT-J1100 Decadron 4mg (Dexamethasone) 16:55:28 CDT CPT-J1030 Depo Medrol 40 mg (Methyl Prednisolone Acetate) 16:55: 28 CDT CPT-52870 Ankle Complete - Min 3V 15:58:50 CDT CPT-18006 Knee 3V 15:58:50 CDT CPT-55872 Hip comp min 2V 15:58:50 CDT CPT-J2270 Morphine Sulfate 10 mg 14:25:44 [employer] CPT-J2550 Phenergan 12.5 mg (Promethazine) 14:25:44 [employer] CPT-71558 Abx/Therapy Injection 14:25:44 [employer] CPT-J2550 Phenergan 12.5 mg (Promethazine) 14:08:03 [employer] CPT-J2270 Morphine Sulfate 10 mg 14:08:03 [employer] CPT-03527 Bladder Scan 15:00:38 CDT CPT-TCMM Transitional Care Mgmt-Moderate 09:52:22 CDT CPT-J1030 Depo Medrol 40 mg (Methyl Prednisolone Acetate) 10:55: 18 CDT CPT-J1100 Decadron 4mg (Dexamethasone) 10:55:18 CDT CPT-15914 Abx/Therapy Injection 10:55:18 CDT CPT-J1030 Depo Medrol 40 mg (Methyl Prednisolone Acetate) 10:22: 32 CDT CPT-J1100 Decadron 4mg (Dexamethasone) 10:22:32 CDT CPT-04327 Postop F/U Visit 14:37:13 CDT CPT-93351 Ankle Complete - Min 3V 17:11:58 CDT CPT-28691 Foot comp min 3V 17:11:58 CDT CPT-36703 Bladder Scan 09:56:58 CDT CPT-26529 Postop F/U Visit 09:56:58 CDT CPT-73956 Cystoscopy 09:02:42 CDT CPT-59137 Bladder Scan 09:02:42 CDT CPT-26603 Abd single AP View 16:00:35 CDT CPT-64561 Administration single or combination vaccine inc oral 10 :15:43 CDT CPT-35256 Influenza split virus > age 3 10:15:43 CDT CPT-63115 Nail Avulsion 09:24:57 CDT CPT-OV Office Visit 11:15:41 CDT CPT-50965 Abx/Therapy Injection 10:51:30 CDT CPT-J3301 Kenalog 40 mg (Triamcinolone Acetonide) 10:25:12 CDT CPT-J1100 Decadron 4mg (Dexamethasone) 10:25:12 CDT CPT-54717 Anoscopy diagnostic 10:36:12 CDT CPT-OV Office Visit 15:34:31 CDT CPT-41902 Abx/Therapy Injection 08:21:15 [employer] CPT-J1885 Toradol 60 mg (Ketorolac) 10:46:35 [employer] CPT-OV Office Visit 19:51:16 [employer] CPT-72574 Spec Collection and Handling Fee 14:34:18 [employer] CPT-PV Prev. Care Visit 14:19:18 [employer] CPT-65241 Postop F/U Visit 14:47:51 [employer] CPT-71200 Postop F/U Visit 15:15:14 [employer] CPT-45652 Postop F/U Visit 14:41:43 CDT CPT-66440 Postop F/U Visit 15:47:46 CDT CPT-OV Office Visit 15:27:23 CDT CPT-OV Office Visit 17:20:34 CDT CPT-16964 Abx/Therapy Injection 15:05:57 CDT CPT-J1100 Decadron 8mg (Dexamethasone) 14:44:57 CDT CPT-J1040 Depo Medrol 80 mg (Methyl Prednisolone Acetate) 14:44: 57 CDT CPT-JTINJ Joint Injection 10:17:37 CDT CPT-84830 Administration 2+ single or combination vaccines inc oral 13:01:46 [employer] CPT-13879 Administration single or combination vaccine inc oral 13 :01:46 [employer] CPT-83810 Pneumovax 13:01:46 [employer] CPT-07542 Influenza split virus > age 3 13:01:46 [employer] CPT-82380 Administration single or combination vaccine inc oral 08 :56:49 CDT CPT-88234 Tdap 08:56:49 CDT
--- OUTSIDE RECORDS SUMMARY | 2017-03-21 19:46 | XMS REPORT ---
Author Author [facility] [employer] [facility] Medical Staff Organization [facility] Address [address] [id number] Phone [phone] Summary purpose TRANSITION OF CARE AUTO GENERATION [...] chlorhexidine Drug Allergy chlorhexidine Confirmed or Verified Immunizations No immunizations recorded [...]
--- OUTSIDE RECORDS SUMMARY | 2017-03-21 19:47 | XMS REPORT ---
Author Author [facility] Medical Staff Organization [facility] Address [address] [id number] Phone [phone] Care Team Providers Care Managed Care Provider Name Role Phone LENKA HUTSON, EUNICE MEEHAN [phone] EUNICE OG MD, PP [phone] Summary purpose TRANSITION OF CARE AUTO GENERATION Chief Complaint and Reason for Visit Admit Diagnosis 1 LEFT KNEE ARTHROSCOPY Problem list No authorized problems tracked for continuity of care are available for this visit. Encounters The following conditions tracked for encounter diagnoses were recorded for this visit: Finding or Diagnosis Status Certainty Chronicity Onset *PAIN Active Medications No medications recorded for this patient [...] throat swelling Hydrocodone Drug Allergy Hydrocodone Confirmed or Verified Nausea Oxycodone Drug Allergy Oxycodone Confirmed or [...] visit Relevant diagnostic tests and/or laboratory data RESULTS Chemistry [id number]:25:00 Result Normal Range Units Sodium 143 134-145 mEq/l Potassium 4.2 3.5-5.1 mEq/l Chloride H 110 98-107 mEq/l CO2 23.4 22-28 mEq/l Glucose 85 70-105 mg/dl BUN H 21 7-18 mg/dl Creatinine H 1.38 0.6-1.0 mg/dl Calcium L 7.8 8.4-10.2 mg/dl Osmolality 287.2 280-300 mOsm/L Anion GAP 9.6 8-16 BUN/Creatinine Ratio 15.2 10-20 Estimated GFR L 40 >=60 mL/min/1.7 Hematology 03-69-755949:25:00 Result Normal Range Units WBC 6.1 4.8-10.8 103/uL RBC L 3.8 4.2-5.4 106/uL HGB L 11.0 12.0-16.0 g/dl HCT L 33.1 36.9-47.0 % MCV 88.0 81-99 FL MCH 29.3 27-31 pg MCHC 33.2 33-37 g/dl RDW 14.2 11.5-15.5 % PLT 175 130-400 103/uL MPV 9.0 7.3-10.4 FL Neutro % 61.7 40-70 % Lymph % 30.3 20-40 % Cocke % 7.7 0-10.0 % Eos % 0.0 0-7.0 % Baso % 0.3 0-2 % Neutro # 3.8 1.5-7.5 103/uL Lymph # 1.9 0.9-4.0 103/uL Cocke # 0.5 0-0.8 103/uL Eos # 0.0 0-0.6 103/uL Baso # 0.0 0-0.1 103/uL Radiology Results [id number]:25:00 Result Normal Range Units MPV 9.0 7.3-10.4 FL History of procedures Procedure Code Code Type Description Date Performed Performing Physician 55809 CPT-4 COMPLETE CBC W/AUTO DIFF WBC 07-31-2014 JUAN JOSE CERRATO 39287 CPT-4 METABOLIC PANEL TOTAL CA 07-31-2014 JUAN JOSE CERRATO 77526 CPT-4 ELECTROCARDIOGRAM, TRACING 07-31-2014 JUAN JOSE CERRATO Functional status Functional Status Finding Observation Time Hearing Prob Loc none 23-86-165314:47 Vision Problems yes 33-57-777519:47 Vision Correct Dev glasses 39-25-182299:47 Ambulation Asst Dev none 74-15-798016:47 Range of Motion full 70-25-597055:10 Muscle Strength RUE 5 ROM full resist 26-62-538666:10 Muscle Strength RLE 5 ROM full resist :10 Muscle Strength LUE 5 ROM full resist :10 Muscle Strength LLE 5 ROM full resist 69-54-652002:10 Transfers assist x 1 :10 Ambulation in room :10 Balance unsteady :10 Bathing Assistance none :47 Eating Assistance none :47 Dressing Assistance none :47 Toileting Assistance none :47 Transfer Assistance none :47 Decline Slf Care/Mob no :47 Phys Cond Stable yes :47 Nutrition normal :10 Diet regular :10 Oral Cavity moist and intact : Teeth dentures :10 Dental Hygiene good 63-18-122067:10 Abdomen Appearance obese :10 Abdomen soft :10 Bowel Sounds present :10 NG Tube no :10 Feeding Tube none :10 Bajwa no :10 Cont Bladder Irr no :10 Ostomy no :10 Stool normal 28-94-843042:10 Urination normal :10 Urine Clarity clear :00 Urine Color straw :00 Quality sym/unlabored :10 Cough absent :10 Secretions no :10 Breath Sounds RUL clear :10 Breath Sounds RML clear :10 Breath Sounds RLL clear :10 Breath Sounds LESLIE clear :10 Breath Sounds LLL clear :10 Airway natural :10 Chest Tube no :10 Oxygen no :45 C-PAP no 68-13-445207:10 BI-PAP no 43-82-829180:10 Temp >100.4 no :10 Temp <96.8 no :10 Chills with rigors no : HR > 90bpm no :10 Respirations > 20 no : Systolic <90 no :10 headache stiff neck no :10 Rapid Resp no :10 IV Site Location left hand :05 IV Type peripheral :05 IV Site Information discontinued :05 IV Site Start Attmpt 1 times :25 IV Site Acosta 20 :05 IV Site Appearance WNL :05 IV Site Color clear :05 IV Site Patent yes :05 Dressing Type occlusive :05 Nursing Note pt ambulatory to private vehicle. pt in stable condition to go home. belongings gathered and dc paperwork in hand. no questions voiced about home instructions. to drive pt home. :15 Cognitive Status Finding Observation Time Oriented To Date 5 Yes :[address] 5 Yes :47 Name 3 Objects 3 Yes :47 Name Object in Rm 2 Yes :47 Recall 3 Objects 3 Yes :47 Repeats a Phrase 1 Yes :47 Follows Verbal Direc 3 Yes :47 Follows Written Dire 1 Yes :47 Write a Sentance 1 Yes :47 Draw an Object 1 Yes :47 Mini Mental Total 25 points 12-07-849876:47 Learning Ability comprehends well : Neurological no :06 Psychological no :06 Physical no :06 Hearing no :06 Gear Room Keeper Needed no :06 Sign Language no : Emotional no :06 Vision yes :06 [place] no 94-26-060756:06 Financial no :06 Vital signs Type Value Date Respiration Rate 18breaths per minute :45 Pulse 48beats per minute :45 Oxygen Saturation 100% :45 BP Systolic 131mmHg :45 BP Diastolic 58mmHg :45 Temperature 96.0F 65-96-906354:10 Height 62inches 97-14-999426:47 Weight 240LB 48-48-908738:47 Social history Type Value Smoking Status FORMER SMOKER Treatment Plan No treatment plan text is available for this visit. Hospital discharge instructions Discharge Date/Time 08/02/14 1015 Accompanied By Dimas Relationship spouse/signif other Dismissal Condition good Disposition on DC home Valuables no DC Inst/Educ Give yes Exit Care Educ Given yes Med/Side Effects Rev yes PNE Vac 2012 Flu Vac 2014 Tetanus Vac 2011 Diet Explained yes Follow up appt already scheduled Follow Up Appt D/T 08/15/14 1310
--- OUTSIDE RECORDS SUMMARY | 2017-03-21 19:47 | XMS REPORT | Clinical Summary ---
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 CHLORHEXIDINE GLUCONATE tongue and gums swollen Critical Active Hoa Kabaford RMA NORFLEX Rash Critical Active Rowenaina Farshadzell [employer]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 TRAZODONE HCL sees things Critical Active Dewayne [...] thigh Sinusitis, maxillary, acute 461.0 Resolved Yolande Lindasy MD PhD Acute maxillary sinusitis Sinusitis 461.9 [...] infarction, hx of 412 Active Hoa Otto [facility] Old myocardial infarction Pelvic pain 789.09 Active Yolande Lindsay MD PhD Abdominal pain, other specified site; multiple sites Edema 782.3 Active Yolande Lindsay MD PhD Edema Rash 782.1 Active Yolande Lindsay MD PhD Rash and other nonspecific skin eruption Back pain, lumbar 724.2 Active Gab Padron MD Lumbago Cough 786.2 Active Jillina Tyrel [employer]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 Cough 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 Jillina Frazellilian ZAPATAN 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 Anemia 285.9 Active Gab Padron MD Anemia, unspecified Conjunctivitis 372.30 Active Jillnacho Sarah APRN Conjunctivitis, unspecified Sinusitis 473.9 Active Jillina Frazell [employer]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 Unspecified sinusitis (chronic) FOOT PAIN, RIGHT ICD-729.5 Inactive Yolande Lindsay [...] Generic Name NDC Status Provider Patient Instruction LEVOTHYROXINE SODIUM 75 MCG TABS Take 1 tab daily LEVOTHYROXINE SODIUM 78834080163 No Longer Active Mariana FLEMING Active SYNTHROID 88 MCG ORAL TABS Take one by mouth daily LEVOTHYROXINE SODIUM 96244061798 Active Mariana FLEMING Active CHERATUSSIN AC 100-10 MG/5ML SYRP 1 tsp by mouth every 4 hours as needed for cough GUAIFENESIN-CODEINE 27507084292 No Longer Active Gab Padron MD Active POLYTRIM 38930-7.1 UNIT/ML-% SOLN 1 gtt to affected eye q3h x 7 days POLYMYXIN B-TRIMETHOPRIM 06251594369 No Longer Active Gab Padron MD Active FLUTICASONE PROPIONATE 50 MCG/ACT SUSP 1 to 2 sprays each nostril daily 04/21 FLUTICASONE PROPIONATE 32122050435 No Longer Active Gab Padron MD Active TRILEPTAL 600 MG TABS Take one 1 tablet in Am and 1 tablet at night OXCARBAZEPINE 12837103419 Active Gab Padron MD Active CEFDINIR 300 MG CAPS 1 po BID x 10 days CEFDINIR 02951393552 No Longer Active Rodrigo Sarah APRN Active CEFTIN 500 MG TAB 1 twice a day CEFUROXIME AXETIL 27250590337 No Longer Active Gab Padron MD Active AZITHROMYCIN 250 MG TABS 2 po qd x 1 day, then 1 po qd x 4 days AZITHROMYCIN 68769669244 No Longer Active Rodrigo Sarah APRN Active CLARITIN 10 MG TAB 1 tablet by mouth daily as needed for allergies LORATADINE 34025155078 Active Rodrigo Sarah APRN Active OXYCODONE HCL 5 MG ORAL CAPS 1 TAB PO Q HS OXYCODONE HCL 33652730307 No Longer Active Rodrigo Sarah APRN Active NIASPAN 500 MG ORAL CR-TABS 1 pill nightly x 1 week, then 2 pills nightly x 1 week, then 3 pills nightly x 1 week, then 4 pills nightly NIACIN (ANTIHYPERLIPIDEMIC) 60793744875 No Longer Active Rodrigo Sarah APRN Active NIACIN 500 MG TABS 1 pill by mouth nightly x 1 week, then 2 pills x 1 week, then 3 pills x 1 week, then 4 pills nightly - take after evening meal, with applesauce or an apple NIACIN 99143210696 No Longer Active Yolande Lindsay MD PhD Active FISH OIL 1000 MG CAPS 3 pills daily OMEGA-3 FATTY ACIDS 40421143159 Active Yolande Lindsay MD PhD Active TRIAMCINOLONE ACETONIDE 0.1 % CREA apply bid sparingly to rash TRIAMCINOLONE ACETONIDE 35284717111 Active Yolande Lindsay MD PhD Active FUROSEMIDE 20 MG TAB 1 tablet by mouth daily FUROSEMIDE 20281075625 Active Yolande Lindsay MD PhD Active LISINOPRIL 20 MG ORAL TABS 1 tab by mouth daily LISINOPRIL 52045900461 Active Gab Padron MD Active FUROSEMIDE 20 MG TABS 1 pill by mouth daily, for edema FUROSEMIDE 94248609865 No Longer Active Yolande Lindsay MD PhD Active ATORVASTATIN CALCIUM 10 MG TABS 1 pill by mouth daily, for cholesterol 09/06 ATORVASTATIN CALCIUM 69868250275 Active Yolande Lindsay MD PhD Active CALCIUM 600+D PLUS MINERALS 600-400 MG-UNIT ORAL CHEW 1 tab by mouth daily CALCIUM CARBONATE-VIT D-MIN 73239982658 No Longer Active Yolande Lindsay MD PhD Active CYCLOBENZAPRINE HCL 10 MG TABS 1 tablet by mouth three times daily as needed for muscle spasm/pain CYCLOBENZAPRINE HCL 63973787087 Active Yolande Lindsay MD PhD Active ONDANSETRON 4 MG TBDP 1 q4h PRN nausea ONDANSETRON 88784862428 Active Yolande Lindsay MD PhD Active ADULT ASPIRIN EC LOW STRENGTH 81 MG TBEC Take 1 tablet by mouth daily 2014 ASPIRIN 92529890205 No Longer Active Yolande Lindsay MD PhD Active ZOFRAN ODT 4 MG TBDP 1 pill dissolved by mouth every 4 hours if needed for nausea ONDANSETRON 22024635870 No Longer Active Yolande Lindsay MD PhD Active CEFTIN 500 MG TAB 1 twice a day CEFUROXIME AXETIL 50194635501 No Longer Active Yolande Lindsay MD PhD Active ALBUTEROL SULFATE 0.083 % NEB SOLN one vial per nebulizer every 4-6 hours as needed ALBUTEROL SULFATE 59867890956 No Longer Active Alexis Ordaz MD Active DOXYCYCLINE HYCLATE 100 MG CAP 1 cap by mouth twice daily DOXYCYCLINE HYCLATE 03245943909 No Longer Active Yolande Lindsay MD PhD Active CYCLOBENZAPRINE HCL 10 MG TABS 1/2 - 1 tab by mouth three times daily if needed for spasms/pain CYCLOBENZAPRINE HCL 68729623043 No Longer Active Yolande Lindsay MD PhD Active AZITHROMYCIN 250 MG TABS 2 pills on day 1, then 1 pill daily x 4 days AZITHROMYCIN 35170252130 No Longer Active Yolande Lindsay MD PhD Active XOPENEX 1.25 MG/3ML NEBU 1 neb every 4 hours if needed for cough/congestion LEVALBUTEROL HCL 02495899143 No Longer Active Yolande Lindsay MD PhD Active DOXYCYCLINE HYCLATE 100 MG TAB 1 tab twice a day for 14 days 2013 DOXYCYCLINE HYCLATE 51751452979 No Longer Active Yolande Lindsay MD PhD Active PREVACID 30 MG CPDR Take 1 tablet by mouth daily-PRN LANSOPRAZOLE 34045652596 No Longer Active Yolande Lindsay MD PhD Active PA VITAMIN D-3 2000 UNIT CAPS 1 CAP PO DAILY CHOLECALCIFEROL 85029432614 No Longer Active Yolande Lindsay MD PhD Active CEFDINIR 300 MG CAPS by mouth twice a day CEFDINIR 17958958118 No Longer Active Gab Padron MD Active TOPAMAX 50 MG TABS 1 PO twice daily TOPIRAMATE 99495331996 Active Yolande Lindsay MD PhD Active AZITHROMYCIN 250 MG TABS 2 po qd x 1 day, then 1 po qd x 4 days AZITHROMYCIN 78317273517 No Longer Active Yolande Lindsay MD PhD Active DICLOFENAC SODIUM 75 MG TBEC 1 tablet by q 12 hours PRN headaches DICLOFENAC SODIUM 03283024908 No Longer Active Yolande Lindsay MD PhD Active FLONASE 50 MCG/ACT SUSP 1 spray each nostril am and hs FLUTICASONE PROPIONATE 66216011585 No Longer Active Todd Callaway MD Active ANUSOL-HC 25 MG SUPPOSITORY 1 rectally twice a day as needed for hemorrhoids HYDROCORTISONE JAYDEN (RECTAL) 14206312564 No Longer Active Yolande Lindsay MD PhD Active ANUSOL-HC 25 MG SUPPOSITORY 1 suppository rectally each evening as needed for anal fissure HYDROCORTISONE JAYDEN (RECTAL) 31286912179 No Longer Active Bozena Coleman EDELMIRAFeliciano Active VALIUM 5 MG TAB 1 po 30 minutes prior to your MRI DIAZEPAM 60225035351 No Longer Active LONNIE Iglesias Active METHOCARBAMOL 750 MG TABS 1 PO QID PRN METHOCARBAMOL 20914051889 No Longer Active Daphne Wetzel 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 Active NITROSTAT 0.4 MG SUBL as directed NITROGLYCERIN 28501743706 No Longer Active Rodrigo Sarah 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 Active ROBAXIN-750 750 MG TABS 2 four times a day for 3 days as needed for muscle spasm, then 1 four times a day as needed METHOCARBAMOL 80028623161 No Longer Active Rodrigo Sarah APRN Active HYDROCODONE-ACETAMINOPHEN 5-325 MG TABS 1 q 4-6 hrs prn HYDROCODONE-ACETAMINOPHEN 94144191090 No Longer Active Silvestrellnacho Sarah APRN Active VERAPAMIL HCL CR 180 MG CR-TABS TAKE 1 TAB DAILY VERAPAMIL HCL 88057893891 No Longer Active Yolande Lindsay MD PhD Active BACTRIM DS 800-160 MG TAB 1 tab by mouth twice daily TRIMETHOPRIM-SULFAMETHOXAZOLE 16703904259 No Longer Active Yolande Lindsay MD PhD Active NEXIUM 40 MG PACK 1 by mouth daily ESOMEPRAZOLE MAGNESIUM 88046229386 No Longer Active Des Hines MD Active EPIPEN 2-CHARLETTE 0.3 MG/0.3ML OMARI as need for allergic reaction EPINEPHRINE 19930720209 Active Yolande Lindsay MD PhD Active NEXIUM 40 MG CPDR 1 PO Q D DAY ESOMEPRAZOLE MAGNESIUM 90278343367 No Longer Active Sadia Perry RN Active NEXIUM 40 MG PACK 1 by mouth daily NEXIUM 40 MG PACK ESOMEPRAZOLE MAGNESIUM Inactive VERAPAMIL HCL CR 180 MG CR-TABS TAKE 1 TAB DAILY VERAPAMIL HCL CR 180 MG CR-TABS VERAPAMIL HCL Inactive HYDROCODONE-ACETAMINOPHEN 5-325 MG TABS 1 q 4-6 hrs prn HYDROCODONE-ACETAMINOPHEN 5-325 MG TABS 194121 HYDROCODONE-ACETAMINOPHEN Inactive ROBAXIN-750 750 MG TABS 2 four times a day for 3 days as needed for muscle spasm, then 1 four times a day as needed ROBAXIN-750 750 MG TABS 469250 METHOCARBAMOL Inactive NITROSTAT 0.4 MG SUBL as directed NITROSTAT 0.4 MG SUBL NITROGLYCERIN Inactive METHOCARBAMOL 750 MG TABS 1 PO QID PRN METHOCARBAMOL 750 MG TABS 350111 METHOCARBAMOL Inactive VALIUM 5 MG TAB 1 po 30 minutes prior to your MRI VALIUM 5 MG TAB 174423 DIAZEPAM Inactive ANUSOL-HC 25 MG SUPPOSITORY 1 suppository rectally each evening as needed for anal fissure ANUSOL-HC 25 MG SUPPOSITORY 5919854 HYDROCORTISONE JAYDEN (RECTAL) Inactive ANUSOL-HC 25 MG SUPPOSITORY 1 rectally twice a day as needed for hemorrhoids ANUSOL-HC 25 MG SUPPOSITORY 6321536 HYDROCORTISONE JAYDEN (RECTAL) Inactive FLONASE 50 MCG/ACT SUSP 1 spray each nostril am and hs FLONASE 50 MCG/ACT SUSP FLUTICASONE PROPIONATE Inactive DICLOFENAC SODIUM 75 MG TBEC 1 tablet by q 12 hours PRN headaches DICLOFENAC SODIUM 75 MG TBEC 064537 DICLOFENAC SODIUM Inactive PA VITAMIN D-3 2000 UNIT CAPS 1 CAP PO DAILY PA VITAMIN D-3 2000 UNIT CAPS CHOLECALCIFEROL Inactive PREVACID 30 MG CPDR Take 1 tablet by mouth daily-PRN PREVACID 30 MG CPDR 611045 LANSOPRAZOLE Inactive DOXYCYCLINE HYCLATE 100 MG TAB 1 tab twice a day for 14 days 2013 DOXYCYCLINE HYCLATE 100 MG TAB 7410694 DOXYCYCLINE HYCLATE Inactive XOPENEX 1.25 MG/3ML NEBU 1 neb every 4 hours if needed for cough/congestion XOPENEX 1.25 MG/3ML NEBU 483101 LEVALBUTEROL HCL Inactive CYCLOBENZAPRINE HCL 10 MG TABS 1/2 - 1 tab by mouth three times daily if needed for spasms/pain CYCLOBENZAPRINE HCL 10 MG TABS 735760 CYCLOBENZAPRINE HCL Inactive ALBUTEROL SULFATE 0.083 % NEBU SOLN one vial per nebulizer every 4-6 hours as needed ALBUTEROL SULFATE 0.083 % NEBU SOLN 647706 ALBUTEROL SULFATE Inactive CEFTIN 500 MG TAB 1 twice a day CEFTIN 500 MG TAB 979590 CEFUROXIME AXETIL Inactive ZOFRAN ODT 4 MG TBDP 1 pill dissolved by mouth every 4 hours if needed for nausea ZOFRAN ODT 4 MG TBDP 990826 ONDANSETRON Inactive ADULT ASPIRIN EC LOW STRENGTH 81 MG TBEC Take 1 tablet by mouth daily 2014 ADULT ASPIRIN EC LOW STRENGTH 81 MG TBEC 605486 ASPIRIN Inactive CALCIUM 600+D PLUS MINERALS 600-400 [...] or an apple NIACIN 500 MG TABS 727570 NIACIN Inactive NIASPAN 500 MG ORAL CR-TABS 1 pill nightly x 1 week, then 2 pills nightly x 1 week, then 3 pills nightly x 1 week, then 4 pills nightly NIASPAN 500 MG ORAL CR-TABS NIACIN (ANTIHYPERLIPIDEMIC) Inactive OXYCODONE HCL 5 MG ORAL CAPS 1 TAB PO Q HS OXYCODONE HCL 5 MG ORAL CAPS 0465928 OXYCODONE HCL Inactive FLUTICASONE PROPIONATE 50 MCG/ACT SUSP 1 to 2 sprays each nostril daily 04/21 FLUTICASONE PROPIONATE 50 MCG/ACT SUSP 880269 FLUTICASONE PROPIONATE Inactive POLYTRIM 49244-4.1 UNIT/ML-% SOLN 1 gtt to affected eye q3h x 7 days POLYTRIM 44745-9.1 UNIT/ML-% SOLN 519713 POLYMYXIN B- TRIMETHOPRIM Inactive CHERATUSSIN AC 100-10 MG/5ML SYRP 1 tsp by mouth every 4 hours as needed for cough CHERATUSSIN AC 100-10 MG/5ML SYRP 559684 GUAIFENESIN-CODEINE Inactive LEVOTHYROXINE SODIUM 75 MCG TABS Take 1 tab daily LEVOTHYROXINE SODIUM 75 MCG TABS 668074 LEVOTHYROXINE SODIUM Inactive BACTRIM DS 800-160 MG TAB 1 tab by mouth twice daily BACTRIM DS 800-160 MG TAB 415124 TRIMETHOPRIM-SULFAMETHOXAZOLE Inactive AZITHROMYCIN 250 MG TABS 2 po qd x 1 day, then 1 po qd x 4 days AZITHROMYCIN 250 MG TABS 8597531 AZITHROMYCIN Inactive CEFDINIR 300 MG CAPS by mouth twice a day CEFDINIR 300 MG CAPS 642912 CEFDINIR Inactive AZITHROMYCIN 250 MG TABS 2 pills on day 1, then 1 pill daily x 4 days AZITHROMYCIN 250 MG TABS 3028075 AZITHROMYCIN Inactive DOXYCYCLINE HYCLATE 100 MG CAP 1 cap by mouth twice daily DOXYCYCLINE HYCLATE 100 MG CAP 2588426 DOXYCYCLINE HYCLATE Inactive FUROSEMIDE 20 MG TABS 1 pill by mouth daily, for edema FUROSEMIDE 20 MG TABS 680603 FUROSEMIDE Inactive AZITHROMYCIN 250 MG TABS 2 po qd x 1 day, then 1 po qd x 4 days AZITHROMYCIN 250 MG TABS 9866797 AZITHROMYCIN Inactive CEFTIN 500 MG TAB 1 twice a day CEFTIN 500 MG TAB 165302 CEFUROXIME AXETIL Inactive CEFDINIR 300 MG CAPS 1 po BID x 10 days CEFDINIR 300 MG CAPS 990817 CEFDINIR Inactive Immunizations Vaccine Administration Date Value Standard Description Seasonal influenza vaccine, injectable, containing preservative, for > 3 years old (Afluria, FluLaval, Fluzone, Fluvirin, Fluarix, Agriflu(>=18 yo)) Fluzone (>3 yrs.) [LLG320] Influenza, seasonal, injectable influenza immunization (Flu Vax) has been administered Influenza - Unspecified Formulation [CVX88] influenza virus vaccine, unspecified formulation Seasonal influenza vaccine, injectable, containing preservative, for > 3 years old (Afluria, FluLaval, Fluzone, Fluvirin, Fluarix, Agriflu(>=18 yo)) Fluzone (>3 yrs.) [ZST454] Influenza, seasonal, injectable pneumococcal immunization administered Pneumovax 23 [CVX33] pneumococcal polysaccharide vaccine, 23 valent dT (Diphtheria and Tetanus) booster given given Td(adult) unspecified formulation Boostrix (Tetanus toxoid, reduced diphtheria toxoid and acellular pertussis vaccine, adsorbed), booster Boostrix [IKB707] tetanus toxoid, reduced diphtheria toxoid, and acellular [...] Panel - Chemistry sodium, serum 145 mmol/L 574-412 2012/06/22 potassium, serum 3.9 mmol/L 3.5-5.2 chloride, serum 109 mmol/L 98-107 carbon dioxide, venous blood 23.4 mmol/L 21.0-32.0 blood glucose 92 mg/dL 65-110 calcium, serum 8.2 mg/dL 8.5-10.1 urea nitrogen, blood 24 mg/dL 7-18 creatinine, serum 1.30 mg/dL 0.60-1.30 Lab Report: [facility] Advanced Lipid and Inlammation Panel /78012 - Chemistry cholesterol, serum 198 mg/dL 068-369 7377/04/30 HDL cholesterol, serum 65 mg/dL > OR=46 triglyceride, serum, fasting 82 mg/dL LDL cholesterol, serum 117 mg/dL cholesterol/HDL ratio, serum 3.0 calc < OR=5.0 cholesterol, serum 148 mg/dL 051-813 3534/09/02 HDL cholesterol, serum 55 mg/dL > OR=46 [...] count 224 10^3/MM^3 10*3/mm3 142-424 Lab Report: CBC, Comp. Metabolic Panel, Thyroid Stimulating Hormone (L) - Chemistry sodium, serum 145 mmol/L 134-675 0983/09/02 potassium, serum 4.6 mmol/L 3.5-5.2 chloride, serum [...] count 166 10^3/MM^3 10*3/mm3 142-424 Lab Report: Lipid Panel - Chemistry triglyceride, serum, fasting 51 mg/dL 30-200 cholesterol, serum 173 mg/dL 999-539 8240/04/28 HDL cholesterol, serum 63 mg/dL 32-96 LDL [...] mg/dL Encounters Code Encounter Date Provider Facility CPT-73688 Level 4 Est. Patient 21:02:30 ED EDUCATIONAL AIDE Gab Padron MD [facility]-49315 Level 3 Est. Patient 11:02:19 ED EDUCATIONAL AIDE Gab Padron MD [facility]-40208 Level 4 Est. Patient 22:24:31 ED EDUCATIONAL AIDE Gab Padron MD [facility]-72496 Level 3 Est. Patient 18:33:46 ED EDUCATIONAL AIDE Gab Padron MD [facility]-02739 Level 3 Est. Patient 16:19:11 CDT Yolande Lindsay MD [facility]-71924 Level 3 Est. Patient 18:59:14 CDT Yolande Lindsay MD [facility]-54943 Level 4 Est. Patient 21:29:26 CDT Yolande Lindsay MD [facility]-31308 Level 3 Est. Patient 07:37:45 CDT Yolande Lindsay MD [facility]-08113 Level 3 Est. Patient 17:03:46 CDT Yolande Lindsay MD [facility]-08504 Level 4 Est. Patient 20:02:13 ED EDUCATIONAL AIDE Yolande Lindsay MD [facility]-04253 Level 3 Est. Patient 16:02:07 ED EDUCATIONAL AIDE Alexis Ordaz MD [facility]-39417 Level 3 Est. Patient 12:41:24 ED EDUCATIONAL AIDE Yolande Lindsay MD [facility]-95202 Level 3 Est. Patient 15:41:20 ED EDUCATIONAL AIDE Yolande Lindsay MD [facility]-74033 Level 3 Est. Patient 13:20:02 ED EDUCATIONAL AIDE Yolande Lindsay MD [facility]-57393 Level 3 Est. Patient 15:00:38 CDT Jared Og MD [facility]-44311 Level 3 Est. Patient 10:22:32 CDT Yolande Lindsay MD [facility] CPT-10276 Level 3 Est. Patient 17:12:58 CDT Yolande Lindsay MD [facility]-97619 Level 4 Est. Patient 13:30:58 CDT Yolande Lindsay MD [facility]-22101 Level 4 New Patient 09:02:42 CDT Jared Og MD [facility]-90980 Level 3 Est. Patient 08:19:07 CDT Yoalnde Lindsay MD [facility]-11584 Level 3 Est. Patient 12:00:13 ED EDUCATIONAL AIDE Gab Padron MD [facility]-08722 Level 3 Est. Patient 16:15:23 ED EDUCATIONAL AIDE Yolande Lindsay MD [facility]-65973 Level 2 Est. Patient 19:47:15 CDT Yolande Lindsay MD [facility]-97802 Level 3 Est. Patient 21:38:31 CDT Yolande Lindsay MD [facility]-82840 Level 3 Est. Patient 10:25:12 CDT Adiel PERAZA [facility] CPT-42721 Level 4 Est. Patient 10:51:58 CDT Yolande Lindsay MD [facility]-65338 Level 3 Est. Patient 14:04:55 ED EDUCATIONAL AIDE Rodrigo Sarah [facility]-69874 Level 3 Est. Patient 10:46:35 ED EDUCATIONAL AIDE Rodrigo Sarah [facility]-46952 Level 3 Est. Patient 14:24:37 ED EDUCATIONAL AIDE Yolande Lindsay MD [facility]-60306 Level 3 Est. Patient 17:41:58 ED EDUCATIONAL AIDE Yolande Lindsay MD [facility] CPT-74584 Level 2 Est. Patient 22:01:41 ED EDUCATIONAL AIDE Rodrigo Sarah [facility] CPT-17061 Level 2 Est. Patient 22:01:11 ED EDUCATIONAL AIDE Rodrigo Sarah [facility] CPT-23350 Level 3 Est. Patient 10:12:29 ED EDUCATIONAL AIDE Rodrigo Sarah [facility] CPT-71535 Level 3 Est. Patient 11:05:44 CDT Alexis Ordaz MD [facility]-15246 Level 3 Est. Patient 14:57:20 CDT Yolande Lindsay MD [facility]-26734 Level 3 Est. Patient 14:40:57 CDT Yolande Lindsay MD [facility]-45176 Level 3 Est. Patient 20:55:40 CDT Yolande Lindsay MD [facility]-10797 Level 3 Est. Patient 12:42:38 ED EDUCATIONAL AIDE Yolande Lindsay MD [facility]-26173 Level 3 Est. Patient 11:54:49 ED EDUCATIONAL AIDE Des Hines MD [facility]-69152 Level 3 Est. Patient 17:06:38 CDT Dewayne PERAZA [facility] Procedures Code Procedure Name Date Entry Date Standard Description CPT-58714 LS spine comp w obliq 13:28:00 ED EDUCATIONAL AIDE CPT-J1040 Depo Medrol 80 mg (Methyl Prednisolone Acetate) 10:51: 28 ED EDUCATIONAL AIDE CPT-J1100 Decadron 8mg (Dexamethasone) 10:51:28 ED EDUCATIONAL AIDE CPT-45531 Abx/Therapy Injection 10:51:28 ED EDUCATIONAL AIDE CPT-J1100 Decadron 8mg (Dexamethasone) 21:02:30 ED EDUCATIONAL AIDE CPT-J1040 Depo Medrol 80 mg (Methyl Prednisolone Acetate) 21:02: 30 ED EDUCATIONAL AIDE [id number] Event Monitor - MC Transmission 09:12:32 CDT 08/06 [id number] Event Monitor - MC review and interp 09:12:32 CDT [id number] Event Monitor - MC recording 09:12:32 CDT CPT-22446 EKG Trac and Interp 16:50:22 CDT CPT-J1030 Depo Medrol 40 mg (Methyl Prednisolone Acetate) 17:05: 54 CDT CPT-J1100 Decadron 4mg (Dexamethasone) 17:05:54 CDT CPT-92841 Abx/Therapy Injection 17:05:54 CDT CPT-J1100 Decadron 4mg (Dexamethasone) 16:55:28 CDT CPT-J1030 Depo Medrol 40 mg (Methyl Prednisolone Acetate) 16:55: 28 CDT CPT-89543 Ankle Complete - Min 3V 15:58:50 CDT CPT-88768 Knee 3V 15:58:50 CDT CPT-16237 Hip comp min 2V 15:58:50 CDT CPT-J2270 Morphine Sulfate 10 mg 14:25:44 ED EDUCATIONAL AIDE CPT-J2550 Phenergan 12.5 mg (Promethazine) 14:25:44 ED EDUCATIONAL AIDE CPT-56238 Abx/Therapy Injection 14:25:44 ED EDUCATIONAL AIDE CPT-J2550 Phenergan 12.5 mg (Promethazine) 14:08:03 ED EDUCATIONAL AIDE CPT-J2270 Morphine Sulfate 10 mg 14:08:03 ED EDUCATIONAL AIDE CPT-11881 Bladder Scan 15:00:38 CDT CPT-TCMM Transitional Care Mgmt-Moderate 09:52:22 CDT CPT-J1030 Depo Medrol 40 mg (Methyl Prednisolone Acetate) 10:55: 18 CDT CPT-J1100 Decadron 4mg (Dexamethasone) 10:55:18 CDT CPT-52526 Abx/Therapy Injection 10:55:18 CDT CPT-J1030 Depo Medrol 40 mg (Methyl Prednisolone Acetate) 10:22: 32 CDT CPT-J1100 Decadron 4mg (Dexamethasone) 10:22:32 CDT CPT-02706 Postop F/U Visit 14:37:13 CDT CPT-78635 Ankle Complete - Min 3V 17:11:58 CDT CPT-89111 Foot comp min 3V 17:11:58 CDT CPT-77214 Bladder Scan 09:56:58 CDT CPT-55249 Postop F/U Visit 09:56:58 CDT CPT-11435 Cystoscopy 09:02:42 CDT CPT-70654 Bladder Scan 09:02:42 CDT CPT-05292 Abd single AP View 16:00:35 CDT CPT-27081 Administration single or combination vaccine inc oral 10 :15:43 CDT CPT-83095 Influenza split virus > age 3 10:15:43 CDT CPT-02485 Nail Avulsion 09:24:57 CDT CPT-OV Office Visit 11:15:41 CDT CPT-17877 Abx/Therapy Injection 10:51:30 CDT CPT-J3301 Kenalog 40 mg (Triamcinolone Acetonide) 10:25:12 CDT CPT-J1100 Decadron 4mg (Dexamethasone) 10:25:12 CDT CPT-77928 Anoscopy diagnostic 10:36:12 CDT CPT-OV Office Visit 15:34:31 CDT CPT-56466 Abx/Therapy Injection 08:21:15 ED EDUCATIONAL AIDE CPT-J1885 Toradol 60 mg (Ketorolac) 10:46:35 ED EDUCATIONAL AIDE CPT-OV Office Visit 19:51:16 ED EDUCATIONAL AIDE CPT-95666 Spec Collection and Handling Fee 14:34:18 ED EDUCATIONAL AIDE CPT-PV Prev. Care Visit 14:19:18 ED EDUCATIONAL AIDE CPT-23137 Postop F/U Visit 14:47:51 ED EDUCATIONAL AIDE CPT-79739 Postop F/U Visit 15:15:14 ED EDUCATIONAL AIDE CPT-47515 Postop F/U Visit 14:41:43 CDT CPT-80357 Postop F/U Visit 15:47:46 CDT CPT-OV Office Visit 15:27:23 CDT CPT-OV Office Visit 17:20:34 CDT CPT-89936 Abx/Therapy Injection 15:05:57 CDT CPT-J1100 Decadron 8mg (Dexamethasone) 14:44:57 CDT CPT-J1040 Depo Medrol 80 mg (Methyl Prednisolone Acetate) 14:44: 57 CDT CPT-JTINJ Joint Injection 10:17:37 CDT CPT-16167 Administration 2+ single or combination vaccines inc oral 13:01:46 ED EDUCATIONAL AIDE CPT-58614 Administration single or combination vaccine inc oral 13 :01:46 ED EDUCATIONAL AIDE CPT-08005 Pneumovax 13:01:46 ED EDUCATIONAL AIDE CPT-49360 Influenza split virus > age 3 13:01:46 ED EDUCATIONAL AIDE CPT-87966 Administration single or combination vaccine inc oral 08 :56:49 CDT CPT-93677 Tdap 08:56:49 CDT
--- OUTSIDE RECORDS SUMMARY | 2017-03-21 19:48 | XMS REPORT | Clinical Summary ---
Author Author Admin, MARGRET Organization [facility] Address Unknown Phone Unavailable Allergies, Adverse Reactions, Alerts Allergy Name Reaction Description Start Date Severity Status Provider CHLORHEXIDINE GLUCONATE tongue and gums swollen Critical Active Hoa Otto RMA NORFLEX Rash Critical Active Rodrigo Sarah MEDICAL AFFAIRS SPECIALIST TRAZODONE HCL sees things Critical Active Dewayne [...] Erum Elder Asthma, unspecified Flank pain 789.09 Active Yolande Lindsay MD PhD Abdominal pain, other specified site; multiple sites Sinusitis 461.9 Active Alexis Ordaz MD Acute sinusitis, unspecified Abdominal pain, LLQ 789.04 Active Yolande Lindsay MD PhD Abdominal pain, left lower quadrant Accidental fall E888.9 Active Jo-Ann Wetzel Unspecified fall Knee sprain, left 844.9 Active Yolande Lindsay MD PhD Sprain of unspecified site of knee and leg Ankle sprain, left 845.00 Active oYlande Lindsay MD PhD Unspecified site of ankle sprain Hip pain, left 719.45 Active Yolande Lindsay MD PhD Pain in joint involving pelvic region and thigh Palpitations 785.1 Active Yolande Lindsya MD PhD Palpitations 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 Erum Sykes 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 Myocardial infarction, hx of 412 Active Hoa Otto A Old myocardial infarction Pelvic pain 789.09 Active Yolande Lindsay MD PhD Abdominal pain, other specified site; multiple sites FOOT PAIN, RIGHT ICD-729.5 Inactive Yolande Lindsay [...] Generic Name NDC Status Provider Patient Instruction FISH OIL 1000 MG CAPS 1 pill daily x 1 week, then 2 pills daily x 1 week, then 3 pills daily x 1 week, then 4 pills daily OMEGA-3 FATTY ACIDS 92638505518 Active Yolande Lindsay MD PhD Active NIACIN 500 MG TABS 1 pill by mouth nightly x 1 week, then 2 pills x 1 week, then 3 pills x 1 week, then 4 pills nightly - take after evening meal, with applesauce or an apple NIACIN 35345562575 Active Yolande Lindsay MD PhD Active ATORVASTATIN CALCIUM 10 MG TABS 1 pill by mouth daily, for cholesterol 09/06 ATORVASTATIN CALCIUM 59208549639 Active Yolande Lindsay MD PhD Active CALCIUM 600+D PLUS MINERALS 600-400 MG-UNIT ORAL CHEW 1 tab by mouth daily CALCIUM CARBONATE-VIT D-MIN 80770643413 No Longer Active Yolande Lindsay MD PhD Active CYCLOBENZAPRINE HCL 10 MG TABS 1 tablet by mouth three times daily as needed for muscle spasm/pain CYCLOBENZAPRINE HCL 22174357430 Active Yolande Lindsay MD PhD Active ONDANSETRON 4 MG TBDP 1 q4h PRN nausea ONDANSETRON 76253511911 Active Yolande Lindsay MD PhD Active ADULT ASPIRIN EC LOW STRENGTH 81 MG TBEC Take 1 tablet by mouth daily 2014 ASPIRIN 15568777129 No Longer Active Yolande Lindsay MD PhD Active ZOFRAN ODT 4 MG TBDP 1 pill dissolved by mouth every 4 hours if needed for nausea ONDANSETRON 39577953857 No Longer Active Yolande Lindsay MD PhD Active CEFTIN 500 MG TAB 1 twice a day CEFUROXIME AXETIL 60411940424 No Longer Active Yolande Lindsay MD PhD Active ALBUTEROL SULFATE 0.083 % NEBU SOLN one vial per nebulizer every 4-6 hours as needed ALBUTEROL SULFATE 93462982007 No Longer Active Alexis Ordaz MD Active DOXYCYCLINE HYCLATE 100 MG CAP 1 cap by mouth twice daily DOXYCYCLINE HYCLATE 25745742662 No Longer Active Yolande Lindsay MD PhD Active CYCLOBENZAPRINE HCL 10 MG TABS 1/2 - 1 tab by mouth three times daily if needed for spasms/pain CYCLOBENZAPRINE HCL 96213786991 No Longer Active Yolande Lindsay MD PhD Active TRILEPTAL 600 MG TABS Take one 1/2 tablet in Am and 1 tablet at night OXCARBAZEPINE 39323807643 Active Yolande Lindsya MD PhD Active AZITHROMYCIN 250 MG TABS 2 pills on day 1, then 1 pill daily x 4 days AZITHROMYCIN 77355236077 No Longer Active Yolande Lindsay MD PhD Active XOPENEX 1.25 MG/3ML NEBU 1 neb every 4 hours if needed for cough/congestion LEVALBUTEROL HCL 31438644256 No Longer Active Yolande Lindsay MD PhD Active DOXYCYCLINE HYCLATE 100 MG TAB 1 tab twice a day for 14 days 2013 DOXYCYCLINE HYCLATE 09311052687 No Longer Active Yolande Lindsay MD PhD Active LEVOTHYROXINE SODIUM 75 MCG TABS Take 1 tab daily LEVOTHYROXINE SODIUM 31405231410 Active Yolande Lindsay MD PhD Active PREVACID 30 MG CPDR Take 1 tablet by mouth daily-PRN LANSOPRAZOLE 83664517738 No Longer Active Yolande Lindsay MD PhD Active PA VITAMIN D-3 2000 UNIT CAPS 1 CAP PO DAILY CHOLECALCIFEROL 31999940511 No Longer Active Yolande Lindsay MD PhD Active CEFDINIR 300 MG CAPS by mouth twice a day CEFDINIR 27924603968 No Longer Active Gab Padron MD Active TOPAMAX 50 MG TABS 1 PO twice daily TOPIRAMATE 89464342436 Active Yolande Lindsay MD PhD Active AZITHROMYCIN 250 MG TABS 2 po qd x 1 day, then 1 po qd x 4 days AZITHROMYCIN 73508033148 No Longer Active Yolande Lindsay MD PhD Active DICLOFENAC SODIUM 75 MG TBEC 1 tablet by q 12 hours PRN headaches DICLOFENAC SODIUM 55295989451 No Longer Active Yolande Lindsay MD PhD Active FLONASE 50 MCG/ACT SUSP 1 spray each nostril am and hs FLUTICASONE PROPIONATE 83284634608 No Longer Active Todd Callaway MD Active ANUSOL-HC 25 MG SUPPOSITORY 1 rectally twice a day as needed for hemorrhoids HYDROCORTISONE JAYDEN (RECTAL) 22502624854 No Longer Active Yolande Lindsay MD PhD Active ANUSOL-HC 25 MG SUPPOSITORY 1 suppository rectally each evening as needed for anal fissure HYDROCORTISONE JAYDEN (RECTAL) 65399696541 No Longer Active LONNIE Iglesias Active VALIUM 5 MG TAB 1 po 30 minutes prior to your MRI DIAZEPAM 02624650233 No Longer Active LONNIE Iglesias Active METHOCARBAMOL 750 MG TABS 1 PO QID PRN METHOCARBAMOL 22148070304 No Longer Active Daphneila Wetzel MEDICAL AFFAIRS SPECIALIST Active NITROSTAT 0.4 MG SUBL as directed NITROGLYCERIN 27296806747 No Longer Active Rodrigo Sarah APRN Active ROBAXIN-750 750 MG TABS 2 four times a day for 3 days as needed for muscle spasm, then 1 four times a day as needed METHOCARBAMOL 46935016311 No Longer Active Rodrigo Sarah APRN Active HYDROCODONE-ACETAMINOPHEN 5-325 MG TABS 1 q 4-6 hrs prn HYDROCODONE-ACETAMINOPHEN 17600060450 No Longer Active Rodrigo Sarah APRN Active VERAPAMIL HCL CR 180 MG CR-TABS TAKE 1 TAB DAILY VERAPAMIL HCL 08434241327 No Longer Active Yolande Lindsay MD PhD Active BACTRIM DS 800-160 MG TAB 1 tab by mouth twice daily TRIMETHOPRIM-SULFAMETHOXAZOLE 54169600364 No Longer Active Yolande Lindsay MD PhD Active NEXIUM 40 MG PACK 1 by mouth daily ESOMEPRAZOLE MAGNESIUM 78576922650 No Longer Active Des Hines MD Active EPIPEN 2-CHARLETTE 0.3 MG/0.3ML OMARI as need for allergic reaction EPINEPHRINE 66190619135 Active Yolande Lindsay MD PhD Active LISINOPRIL 10 MG TABS 1 PO Q D FOR BP LISINOPRIL 75992291129 Active Yolande Lindsay MD PhD Active NEXIUM 40 MG CPDR 1 PO Q D DAY ESOMEPRAZOLE MAGNESIUM 68712503472 No Longer Active Sadia Perry RN Active NEXIUM 40 MG PACK 1 by mouth daily NEXIUM 40 MG PACK ESOMEPRAZOLE MAGNESIUM Inactive VERAPAMIL HCL CR 180 MG CR-TABS TAKE 1 TAB DAILY VERAPAMIL HCL CR 180 MG CR-TABS VERAPAMIL HCL Inactive HYDROCODONE-ACETAMINOPHEN 5-325 MG TABS 1 q 4-6 hrs prn HYDROCODONE-ACETAMINOPHEN 5-325 MG TABS 825167 HYDROCODONE-ACETAMINOPHEN Inactive ROBAXIN-750 750 MG TABS 2 four times a day for 3 days as needed for muscle spasm, then 1 four times a day as needed ROBAXIN-750 750 MG TABS 728977 METHOCARBAMOL Inactive NITROSTAT 0.4 MG SUBL as directed NITROSTAT 0.4 MG SUBL NITROGLYCERIN Inactive METHOCARBAMOL 750 MG TABS 1 PO QID PRN METHOCARBAMOL 750 MG TABS 798575 METHOCARBAMOL Inactive VALIUM 5 MG TAB 1 po 30 minutes prior to your MRI VALIUM 5 MG TAB 689316 DIAZEPAM Inactive ANUSOL-HC 25 MG SUPPOSITORY 1 suppository rectally each evening as needed for anal fissure ANUSOL-HC 25 MG SUPPOSITORY 9145652 HYDROCORTISONE JAYDEN (RECTAL) Inactive ANUSOL-HC 25 MG SUPPOSITORY 1 rectally twice a day as needed for hemorrhoids ANUSOL-HC 25 MG SUPPOSITORY 6118624 HYDROCORTISONE JAYDEN (RECTAL) Inactive FLONASE 50 MCG/ACT SUSP 1 spray each nostril am and hs FLONASE 50 MCG/ACT SUSP 360756 FLUTICASONE PROPIONATE Inactive DICLOFENAC SODIUM 75 MG TBEC 1 tablet by q 12 hours PRN headaches DICLOFENAC SODIUM 75 MG TBEC 654502 DICLOFENAC SODIUM Inactive PA VITAMIN D-3 2000 UNIT CAPS 1 CAP PO DAILY PA VITAMIN D-3 2000 UNIT CAPS CHOLECALCIFEROL Inactive PREVACID 30 MG CPDR Take 1 tablet by mouth daily-PRN PREVACID 30 MG CPDR 441267 LANSOPRAZOLE Inactive DOXYCYCLINE HYCLATE 100 MG TAB 1 tab twice a day for 14 days 2013 DOXYCYCLINE HYCLATE 100 MG TAB 005849 DOXYCYCLINE HYCLATE Inactive XOPENEX 1.25 MG/3ML NEBU 1 neb every 4 hours if needed for cough/congestion XOPENEX 1.25 MG/3ML NEBU LEVALBUTEROL HCL Inactive CYCLOBENZAPRINE HCL 10 MG TABS 1/2 - 1 tab by mouth three times daily if needed for spasms/pain CYCLOBENZAPRINE HCL 10 MG TABS 142872 CYCLOBENZAPRINE HCL Inactive ALBUTEROL SULFATE 0.083 % NEBU SOLN one vial per nebulizer every 4-6 hours as needed ALBUTEROL SULFATE 0.083 % NEB SOLN 638199 ALBUTEROL SULFATE Inactive CEFTIN 500 MG TAB 1 twice a day CEFTIN 500 MG TAB 488225 CEFUROXIME AXETIL Inactive ZOFRAN ODT 4 MG TBDP 1 pill dissolved by mouth every 4 hours if needed for nausea ZOFRAN ODT 4 MG TBDP 411454 ONDANSETRON Inactive ADULT ASPIRIN EC LOW STRENGTH 81 MG TBEC Take 1 tablet by mouth daily 2014 ADULT ASPIRIN EC LOW STRENGTH 81 MG TBEC 262965 ASPIRIN Inactive CALCIUM 600+D PLUS MINERALS 600-400 MG-UNIT ORAL CHEW 1 tab by mouth daily CALCIUM 600+D PLUS MINERALS 600-400 MG-UNIT ORAL CHEW CALCIUM CARBONATE-VIT D-MIN Inactive BACTRIM DS 800-160 MG TAB 1 tab by mouth twice daily BACTRIM DS 800-160 MG TAB TRIMETHOPRIM-SULFAMETHOXAZOLE Inactive AZITHROMYCIN 250 MG TABS 2 po qd x 1 day, then 1 po qd x 4 days AZITHROMYCIN 250 MG TABS 0629834 AZITHROMYCIN Inactive CEFDINIR 300 MG CAPS by mouth twice a day CEFDINIR 300 MG CAPS 673597 CEFDINIR Inactive AZITHROMYCIN 250 MG TABS 2 pills on day 1, then 1 pill daily x 4 days AZITHROMYCIN 250 MG TABS 9014255 AZITHROMYCIN Inactive DOXYCYCLINE HYCLATE 100 MG CAP 1 cap by mouth twice daily DOXYCYCLINE HYCLATE 100 MG CAP 364743 DOXYCYCLINE HYCLATE Inactive Immunizations Vaccine Administration Date Value Standard Description Seasonal influenza vaccine, injectable, containing preservative, for > 3 years old (Afluria, FluLaval, Fluzone, Fluvirin, Fluarix, Agriflu(>=18 yo)) Fluzone (>3 yrs.) [WJA976] Influenza, seasonal, injectable influenza immunization (Flu Vax) has been administered Influenza - Unspecified Formulation [CVX88] influenza virus vaccine, unspecified formulation Seasonal influenza vaccine, injectable, containing preservative, for > 3 years old (Afluria, FluLaval, Fluzone, Fluvirin, Fluarix, Agriflu(>=18 yo)) Fluzone (>3 yrs.) [[id number]] Influenza, seasonal, injectable pneumococcal immunization administered Pneumovax 23 [CVX33] pneumococcal polysaccharide vaccine, 23 valent dT (Diphtheria and Tetanus) booster given given Td(adult) unspecified formulation Boostrix (Tetanus toxoid, reduced diphtheria toxoid and acellular pertussis vaccine, adsorbed), booster Boostrix [CHE175] tetanus toxoid, reduced diphtheria toxoid, and acellular pertussis vaccine, adsorbed Vital Signs Date Name Value Unit Range Description blood pressure, diastolic - 8462-4 70 mm[Hg] BP weldon blood pressure, systolic - 8480-6 120 mm[Hg] BP sys pulse rate E&M - 8867-4 62 /min Heart rate temperature E&M 98.3 [degF] Body temperature weight E&M - 3141-9 238.8 [lb_av] Weight Measured blood pressure, diastolic - 8462-4 82 mm[Hg] BP weldon blood pressure, systolic - 8480-6 127 mm[Hg] BP sys pulse rate E&M - 8867-4 74 /min Heart rate temperature E&M 98.4 [degF] Body temperature blood pressure, diastolic - 8462-4 90 mm[Hg] BP weldon blood pressure, systolic - 8480-6 150 mm[Hg] BP sys pulse rate E&M - 8867-4 90 /min Heart rate temperature E&M 99 [degF] Body temperature blood pressure, diastolic - 8462-4 83 mm[Hg] BP weldon blood pressure, systolic - 8480-6 125 mm[Hg] BP sys pulse rate E&M - 8867-4 70 /min Heart rate temperature E&M 97.4 [degF] Body temperature weight E&M - 3141-9 231 [lb_av] Weight Measured blood pressure, diastolic - 8462-4 76 mm[Hg] BP weldon blood pressure, systolic - 8480-6 116 mm[Hg] BP sys pulse rate E&M - 8867-4 63 /min Heart rate temperature E&M 97.5 [degF] Body temperature weight E&M - 3141-9 230.9 [lb_av] Weight Measured blood pressure, diastolic - 8462-4 62 mm[Hg] BP weldon blood pressure, systolic - 8480-6 107 mm[Hg] BP sys pulse rate E&M - 8867-4 67 /min Heart rate temperature E&M 99.1 [degF] Body temperature weight E&M - 3141-9 232.6 [lb_av] Weight Measured blood pressure, diastolic - 8462-4 67 mm[Hg] BP weldon blood pressure, systolic - 8480-6 121 mm[Hg] BP sys pulse rate E&M - 8867-4 63 /min Heart rate temperature E&M 98.5 [degF] Body temperature weight E&M - 3141-9 228.9 [lb_av] Weight Measured blood pressure, diastolic - 8462-4 79 mm[Hg] BP weldon blood pressure, systolic - 8480-6 114 mm[Hg] BP sys pulse rate E&M - 8867-4 62 /min Heart rate temperature E&M 97.4 [degF] Body temperature weight E&M - 3141-9 228 [lb_av] Weight Measured blood pressure, diastolic - 8462-4 72 mm[Hg] BP weldon blood pressure, systolic - 8480-6 120 mm[Hg] BP sys height E&M - 8302-2 52.5 [in_us] Bdy height pulse rate E&M - 8867-4 65 /min Heart rate temperature E&M 97.2 [degF] Body temperature weight E&M - 3141-9 222 [lb_av] Weight Measured blood pressure, diastolic - 8462-4 69 mm[Hg] BP weldon blood pressure, systolic - 8480-6 111 mm[Hg] BP sys pulse rate E&M - 8867-4 65 /min Heart rate temperature E&M 97.4 [degF] Body temperature weight E&M - 3141-9 229 [lb_av] Weight Measured Diagnostic Results Date Name Value Unit Range Description Chart Maintenance: Outside labs entered on flowsheet - Chemistry sodium, serum 143 mmol/L potassium, serum 4.2 mmol/L blood glucose 85 mg/dL creatinine, serum 1.38 mg/dL Chart Maintenance: Outside labs entered on [facility] - Hematology leukocyte count, blood 6.1 10*3/mm3 hemoglobin, blood 11.0 g/dL platelet count 175 10*3/mm3 Lab Report: [facility] Advanced Lipid and Inlammation Panel /51706 - Chemistry cholesterol, serum 198 mg/dL 259-839 4984/04/30 HDL cholesterol, serum 65 mg/dL > OR=46 triglyceride, serum, fasting 82 mg/dL LDL cholesterol, serum 117 mg/dL cholesterol/HDL ratio, serum 3.0 calc < OR=5.0 Lab Report: CBC W/DIFF, Basic Metabolic Panel - Chemistry sodium, serum 144 mmol/L 712-047 9986/01/21 potassium, serum 4.2 mmol/L 3.5-5.2 chloride, serum 109 mmol/L 98-107 carbon dioxide, venous blood 23.7 mmol/L 21.0-32.0 blood glucose 75 mg/dL 65-110 calcium, serum 8.4 mg/dL 8.5-10.1 urea nitrogen, blood 22 mg/dL 7-18 creatinine, serum 1.30 mg/dL 0.60-1.30 Lab Report: CBC W/DIFF, Basic Metabolic Panel - Hematology leukocyte count, blood 4.1 10^3/MM^3 10*3/mm3 4.6-10.2 neutrophils as percent of blood leukocytes 52.0 % 42.2-75.2 monocytes as percent of blood leukocytes 8.3 % 1.7-9.3 lymphocytes as percent of blood leukocytes 38.7 % 20.5-51.1 erythrocyte (RBC) count 4.10 10^6/MM^3 10*6/mm3 4.04-5.48 hemoglobin, blood 12.1 g/dL 12.0-16.0 hematocrit, blood 37.3 % 36.0-46.0 mean corpuscular volume, RBC 91 fL 80-97 mean corpuscular hemoglobin, RBC 29.6 pg 27.0-31.2 mean corpuscular hemoglobin concentration, RBC 32.6 G/DL % 31.8- 35.4 red blood cell distribution width 15.6 % 11.6-14.8 platelet count 189 10^3/MM^3 10*3/mm3 142-424 Lab Report: CBC W/DIFF, Comp. Metabolic Panel - Chemistry sodium, serum 144 mmol/L 540-175 2996/12/15 potassium, serum 5.4 mmol/L 3.5-5.2 chloride, serum 108 mmol/L 98-107 carbon dioxide, venous blood 28.3 mmol/L 21.0-32.0 blood glucose 89 mg/dL 65-110 urea nitrogen, blood 17 mg/dL 7-18 creatinine, serum 1.40 mg/dL 0.60-1.30 alanine aminotransferase (SGPT), serum 64 U/L 12-78 aspartate aminotransferase (SGOT), serum 35 U/L 15-37 calcium, serum 8.7 mg/dL 8.5-10.1 bilirubin, serum, total 0.40 mg/dL 0.00-1.00 Lab Report: CBC W/DIFF, Comp. Metabolic Panel - Hematology leukocyte count, blood 4.1 10^3/MM^3 10*3/mm3 4.6-10.2 neutrophils as percent of blood leukocytes 55.5 % 42.2-75.2 monocytes as percent of blood leukocytes 8.4 % 1.7-9.3 lymphocytes as percent of blood leukocytes 34.9 % 20.5-51.1 erythrocyte (RBC) count 4.34 10^6/MM^3 10*6/mm3 4.04-5.48 hemoglobin, blood 13.2 g/dL 12.0-16.0 hematocrit, blood 39.6 % 36.0-46.0 mean corpuscular volume, RBC 91 fL 80-97 mean corpuscular hemoglobin, RBC 30.3 pg 27.0-31.2 mean corpuscular hemoglobin concentration, RBC 33.3 G/DL % 31.8- 35.4 red blood cell distribution width 15.9 % 11.6-14.8 platelet count 186 10^3/MM^3 10*3/mm3 142-424 Lab Report: CBC, Comp. Metabolic Panel, FreeT4, TSH, UA - Chemistry sodium, serum 143 mmol/L 507-849 6403/10/24 potassium, serum 3.9 mmol/L 3.5-5.2 chloride, serum 109 mmol/L 98-107 carbon dioxide, venous blood 23.9 mmol/L 21.0-32.0 blood glucose 79 mg/dL 65-110 urea nitrogen, blood 22 mg/dL 7-18 creatinine, serum 1.30 mg/dL 0.60-1.30 alanine aminotransferase (SGPT), serum 22 U/L 12-78 aspartate aminotransferase (SGOT), serum 15 U/L 15-37 alkaline phosphatase, serum 101 U/L 50-136 calcium, serum 8.6 mg/dL 8.5-10.1 bilirubin, serum, total 0.20 mg/dL 0.00-1.00 thyroxine, serum, free 0.87 ng/dL 0.76-1.46 TSH 0.78 m[iU]/mL 0.36-3.74 protein, total urine random Negative mg/dL Negative RBC, urine, dipstick Negative Negative Lab Report: CBC, Comp. Metabolic Panel, FreeT4, TSH, UA - Hematology leukocyte count, blood 5.3 10^3/MM^3 10*3/mm3 4.6-10.2 erythrocyte (RBC) count 3.81 10^6/MM^3 10*6/mm3 4.04-5.48 hemoglobin, blood 11.6 g/dL 12.0-16.0 hematocrit, blood 34.9 % 36.0-46.0 mean corpuscular volume, RBC 92 fL 80-97 mean corpuscular hemoglobin, RBC 30.4 pg 27.0-31.2 mean corpuscular hemoglobin concentration, RBC 33.2 G/DL % 31.8- 35.4 red blood cell distribution width 15.6 % 11.6-14.8 platelet count 186 10^3/MM^3 10*3/mm3 142-424 Lab Report: CBC, Comp. Metabolic Panel, FreeT4, TSH, UA - Urinalysis urobilinogen, urine, semiquantitative (dipstick) 0.2 Normal leukocyte esterase, urine, by dipstick Negative Negative nitrite, urine, semiquantitative Negative Negative glucose, urine, semiquantitative Negative Negative ketones, urine, by test strip Negative Negative bilirubin, urine Negative Negative urine color Yellow Colorless;Lightyellow;Straw;Yellow appearance, urine Clear Clear specific gravity, urine 1.020 1.000-1.030 pH, urine, semiquantitative 6.0 5.0-8.5 Lab Report: Lipid Panel - Chemistry triglyceride, serum, fasting 51 mg/dL 30-200 cholesterol, serum 173 mg/dL 600-635 9749/04/28 HDL cholesterol, serum 63 mg/dL 32-96 LDL cholesterol, serum 100 mg/dL 0-130 Lab Report: Lipid Panel, HEPATIC PANEL, MICROALBUMIN - Chemistry albumin/creatinine ratio, urine < 30 mg/g mg/g{creat} 0-29 aspartate aminotransferase (SGOT), serum 16 U/L 15-37 alanine aminotransferase (SGPT), serum 19 U/L 12-78 bilirubin, serum, total 0.30 mg/dL 0.00-1.00 Lab Report: Lipid Panel, HEPATIC PANEL, MICROALBUMIN - Lab microalbumin, urine 10 0-19 Encounters Code Encounter Date Provider Facility CPT-00847 Level 3 Est. Patient 07:37:45 CDT Yolande Lindsay MD PhD [facility] CPT-91945 Level 3 Est. Patient 17:03:46 CDT Yolande Lindsay MD PhD [facility] CPT-01017 Level 4 Est. Patient 20:02:13 RECRUITMENT OFFICER Yolande Lindsay MD [facility] CPT-76376 Level 3 Est. Patient 16:02:07 RECRUITMENT OFFICER Alexis Ordaz MD [facility] CPT-64127 Level 3 Est. Patient 12:41:24 RECRUITMENT OFFICER Yolande Lindsay MD [facility] CPT-16561 Level 3 Est. Patient 15:41:20 RECRUITMENT OFFICER Yolande Lindsay MD [facility] CPT-94341 Level 3 Est. Patient 13:20:02 RECRUITMENT OFFICER Yolande Lindsay MD [facility]-52025 Level 3 Est. Patient 15:00:38 CDT Jared Og MD [facility]-41316 Level 3 Est. Patient 10:22:32 CDT Yolande Lindsay MD [facility] CPT-52350 Level 3 Est. Patient 17:12:58 CDT Yolande Lindsay MD [facility] CPT-26650 Level 4 Est. Patient 13:30:58 CDT Yolande Lindsay MD [facility] CPT-84597 Level 4 New Patient 09:02:42 CDT Jared Og MD [facility] CPT-31142 Level 3 Est. Patient 08:19:07 CDT Yolande Lindsay MD [facility] CPT-77791 Level 3 Est. Patient 12:00:13 RECRUITMENT OFFICER Gab Padron MD [facility] CPT-67618 Level 3 Est. Patient 16:15:23 RECRUITMENT OFFICER Yolande Lindsay MD [facility] CPT-31253 Level 2 Est. Patient 19:47:15 CDT Yolande Lindsay MD [facility] CPT-00421 Level 3 Est. Patient 21:38:31 CDT Yolande Lindsay MD [facility]-90740 Level 3 Est. Patient 10:25:12 CDT Adiel Harry [facility]-62943 Level 4 Est. Patient 10:51:58 CDT Yolande Lindsay MD [facility]-10173 Level 3 Est. Patient 14:04:55 RECRUITMENT OFFICER Rodrigo Sarah [facility]-49178 Level 3 Est. Patient 10:46:35 RECRUITMENT OFFICER Rodrigo Sarah [facility]-60193 Level 3 Est. Patient 14:24:37 RECRUITMENT OFFICER Yolande Lindsay MD [facility]-67875 Level 3 Est. Patient 17:41:58 RECRUITMENT OFFICER Yolande Lindsay MD [facility]-05583 Level 2 Est. Patient 22:01:41 RECRUITMENT OFFICER Rodrigo Sarah [facility]-72124 Level 2 Est. Patient 22:01:11 RECRUITMENT OFFICER Silvestrellnacho Montemayorl [facility] CPT-88847 Level 3 Est. Patient 10:12:29 RECRUITMENT OFFICER Rodrigo Sarah [facility]-77589 Level 3 Est. Patient 11:05:44 CDT Alexis Ordaz MD [facility]-24976 Level 3 Est. Patient 14:57:20 CDT Yolande Lindsay MD [facility]-46114 Level 3 Est. Patient 14:40:57 CDT Yolande Lindsay MD [facility]-18490 Level 3 Est. Patient 20:55:40 CDT Yolande Lindsay MD [facility]-94825 Level 3 Est. Patient 12:42:38 RECRUITMENT OFFICER Yolande Lindsay MD [facility]-33903 Level 3 Est. Patient 11:54:49 RECRUITMENT OFFICER Des Hines MD [facility] CPT-05868 Level 3 Est. Patient 17:06:38 CDT Dewayne PERAZA [facility] Procedures Code Procedure Name Date Entry Date Standard Description [id number] Event Monitor - MC Transmission 09:12:32 CDT 08/06 [id number] Event Monitor - MC review and interp 09:12:32 CDT [id number] Event Monitor - MC recording 09:12:32 CDT CPT-42842 EKG Trac and Interp 16:50:22 CDT CPT-J1030 Depo Medrol 40 mg (Methyl Prednisolone Acetate) 17:05: 54 CDT CPT-J1100 Decadron 4mg (Dexamethasone) 17:05:54 CDT CPT-65761 Abx/Therapy Injection 17:05:54 CDT CPT-J1100 Decadron 4mg (Dexamethasone) 16:55:28 CDT CPT-J1030 Depo Medrol 40 mg (Methyl Prednisolone Acetate) 16:55: 28 CDT CPT-51607 Ankle Complete - Min 3V 15:58:50 CDT CPT-04817 Knee 3V 15:58:50 CDT CPT-46677 Hip comp min 2V 15:58:50 CDT CPT-J2270 Morphine Sulfate 10 mg 14:25:44 RECRUITMENT OFFICER CPT-J2550 Phenergan 12.5 mg (Promethazine) 14:25:44 RECRUITMENT OFFICER CPT-07916 Abx/Therapy Injection 14:25:44 RECRUITMENT OFFICER CPT-J2550 Phenergan 12.5 mg (Promethazine) 14:08:03 RECRUITMENT OFFICER CPT-J2270 Morphine Sulfate 10 mg 14:08:03 RECRUITMENT OFFICER CPT-44980 Bladder Scan 15:00:38 CDT CPT-TCMM Transitional Care Mgmt-Moderate 09:52:22 CDT CPT-J1030 Depo Medrol 40 mg (Methyl Prednisolone Acetate) 10:55: 18 CDT CPT-J1100 Decadron 4mg (Dexamethasone) 10:55:18 CDT CPT-43326 Abx/Therapy Injection 10:55:18 CDT CPT-J1030 Depo Medrol 40 mg (Methyl Prednisolone Acetate) 10:22: 32 CDT CPT-J1100 Decadron 4mg (Dexamethasone) 10:22:32 CDT CPT-93401 Postop F/U Visit 14:37:13 CDT CPT-12355 Ankle Complete - Min 3V 17:11:58 CDT CPT-15719 Foot comp min 3V 17:11:58 CDT CPT-13622 Bladder Scan 09:56:58 CDT CPT-42551 Postop F/U Visit 09:56:58 CDT CPT-92430 Cystoscopy 09:02:42 CDT CPT-98305 Bladder Scan 09:02:42 CDT CPT-07332 Abd single AP View 16:00:35 CDT CPT-81254 Administration single or combination vaccine inc oral 10 :15:43 CDT CPT-56343 Influenza split virus > age 3 10:15:43 CDT CPT-94865 Nail Avulsion 09:24:57 CDT CPT-OV Office Visit 11:15:41 CDT CPT-28549 Abx/Therapy Injection 10:51:30 CDT CPT-J3301 Kenalog 40 mg (Triamcinolone Acetonide) 10:25:12 CDT CPT-J1100 Decadron 4mg (Dexamethasone) 10:25:12 CDT CPT-91463 Anoscopy diagnostic 10:36:12 CDT CPT-OV Office Visit 15:34:31 CDT CPT-88029 Abx/Therapy Injection 08:21:15 RECRUITMENT OFFICER CPT-J1885 Toradol 60 mg (Ketorolac) 10:46:35 RECRUITMENT OFFICER CPT-OV Office Visit 19:51:16 RECRUITMENT OFFICER CPT-42823 Spec Collection and Handling Fee 14:34:18 RECRUITMENT OFFICER CPT-PV Prev. Care Visit 14:19:18 RECRUITMENT OFFICER CPT-26880 Postop F/U Visit 14:47:51 RECRUITMENT OFFICER CPT-76339 Postop F/U Visit 15:15:14 RECRUITMENT OFFICER CPT-03542 Postop F/U Visit 14:41:43 CDT CPT-19212 Postop F/U Visit 15:47:46 CDT CPT-OV Office Visit 15:27:23 CDT CPT-OV Office Visit 17:20:34 CDT CPT-72048 Abx/Therapy Injection 15:05:57 CDT CPT-J1100 Decadron 8mg (Dexamethasone) 14:44:57 CDT CPT-J1040 Depo Medrol 80 mg (Methyl Prednisolone Acetate) 14:44: 57 CDT CPT-JTINJ Joint Injection 10:17:37 CDT CPT-15314 Administration 2+ single or combination vaccines inc oral 13:01:46 RECRUITMENT OFFICER CPT-09982 Administration single or combination vaccine inc oral 13 :01:46 RECRUITMENT OFFICER CPT-07963 Pneumovax 13:01:46 RECRUITMENT OFFICER CPT-50910 Influenza split virus > age 3 13:01:46 RECRUITMENT OFFICER CPT-66484 Administration single or combination vaccine inc oral 08 :56:49 CDT CPT-74724 Tdap 08:56:49 CDT
--- OUTSIDE RECORDS SUMMARY | 2017-03-21 19:50 | XMS REPORT | Clinical Summary ---
Author Author Admin, MARGRET Rhoades [facility] Address Unknown Phone Unavailable Allergies, Adverse Reactions, Alerts Allergy Name Reaction Description Start Date Severity Status Provider CHLORHEXIDINE GLUCONATE tongue and gums swollen Critical Active Hoa Otto RMA NORFLEX Rash Critical Active Rodrigo Sarah [employer] DES[employer]ER TRAZODONE HCL sees things Critical Active [...] unspecified hyperlipidemia ABDOMINAL PAIN 789.00 Resolved Yolande Lindasy MD PhD Abdominal pain, unspecified site PLANTAR [...] PhD Unspecified fall Knee sprain, left 844.9 Active Yolande Lindsay MD PhD Sprain of unspecified site of knee and leg Ankle sprain, left 845.00 Active Yolande Lindsay MD PhD Unspecified site of ankle sprain Hip pain, left 719.45 Active Yolande Lindsay MD PhD Pain in joint involving pelvic region and thigh Palpitations 785.1 Active Yolande Lindsay MD PhD Palpitations 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 Erum Elder 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 Myocardial infarction, hx of 412 Active Hoa Otto RMA Old myocardial infarction Pelvic pain 789.09 Active Yolande Lindsay MD PhD Abdominal pain, other specified site; multiple sites Edema 782.3 Active Yolande Lindsay MD PhD Edema FOOT PAIN, RIGHT ICD-729.5 Inactive Yolande Lindsay MD PhD ANKLE PAIN, RIGHT ICD-719.47 Inactive Yolande Lidnsay MD PhD EDEMA, LIMB ICD-782.3 Inactive Yolande [...] fall ICD-E888.9 Inactive Yolande Lindsay MD PhD Medication List Medication Instructions Start Date Stop Date Generic Name NDC Status Provider Patient Instruction FUROSEMIDE 20 MG TABS 1 pill by mouth daily, for edema FUROSEMIDE 53820304267 Active Yolande Lindsay MD PhD Active FISH OIL 1000 MG CAPS 1 pill daily x 1 week, then 2 pills daily x 1 week, then 3 pills daily x 1 week, then 4 pills daily OMEGA-3 FATTY ACIDS 40345759310 Active Yolande Lindsay MD PhD Active NIACIN 500 MG TABS 1 pill by mouth nightly x 1 week, then 2 pills x 1 week, then 3 pills x 1 week, then 4 pills nightly - take after evening meal, with applesauce or an apple NIACIN 77871731019 Active Yolande Lindsay MD PhD Active ATORVASTATIN CALCIUM 10 MG TABS 1 pill by mouth daily, for cholesterol 09/06 ATORVASTATIN CALCIUM 03462190275 Active Yolande Lindsay MD PhD Active CALCIUM 600+D PLUS MINERALS 600-400 MG-UNIT ORAL CHEW 1 tab by mouth daily CALCIUM CARBONATE-VIT D-MIN 70549602652 No Longer Active Yolande Lindsay MD PhD Active CYCLOBENZAPRINE HCL 10 MG TABS 1 tablet by mouth three times daily as needed for muscle spasm/pain CYCLOBENZAPRINE HCL 49033874957 Active Yolande Lindsay MD PhD Active ONDANSETRON 4 MG TBDP 1 q4h PRN nausea ONDANSETRON 12757684671 Active Yolande Lindsay MD PhD Active ADULT ASPIRIN EC LOW STRENGTH 81 MG TBEC Take 1 tablet by mouth daily 2014 ASPIRIN 09718333092 No Longer Active Yolande Lindsay MD PhD Active ZOFRAN ODT 4 MG TBDP 1 pill dissolved by mouth every 4 hours if needed for nausea ONDANSETRON 76045214610 No Longer Active Yolande Lindsay MD PhD Active CEFTIN 500 MG TAB 1 twice a day CEFUROXIME AXETIL 07161040371 No Longer Active Yolande Lindsay MD PhD Active ALBUTEROL SULFATE 0.083 % NEBU SOLN one vial per nebulizer every 4-6 hours as needed ALBUTEROL SULFATE 96716331167 No Longer Active Alexis Ordaz MD Active DOXYCYCLINE HYCLATE 100 MG CAP 1 cap by mouth twice daily DOXYCYCLINE HYCLATE 70408143674 No Longer Active Yolande Lindsay MD PhD Active CYCLOBENZAPRINE HCL 10 MG TABS 1/2 - 1 tab by mouth three times daily if needed for spasms/pain CYCLOBENZAPRINE HCL 55565212025 No Longer Active Yolande Lindsay MD PhD Active TRILEPTAL 600 MG TABS Take one 1/2 tablet in Am and 1 tablet at night OXCARBAZEPINE 64202745610 Active Yolande Lindsay MD PhD Active AZITHROMYCIN 250 MG TABS 2 pills on day 1, then 1 pill daily x 4 days AZITHROMYCIN 48183839137 No Longer Active Yolande Lindsay MD PhD Active XOPENEX 1.25 MG/3ML NEBU 1 neb every 4 hours if needed for cough/congestion LEVALBUTEROL HCL 39648863335 No Longer Active Yolande Lindsay MD PhD Active DOXYCYCLINE HYCLATE 100 MG TAB 1 tab twice a day for 14 days 2013 DOXYCYCLINE HYCLATE 46827245758 No Longer Active Yolande Lindsay MD PhD Active LEVOTHYROXINE SODIUM 75 MCG TABS Take 1 tab daily LEVOTHYROXINE SODIUM 37445095887 Active Yolande Lindsay MD PhD Active PREVACID 30 MG CPDR Take 1 tablet by mouth daily-PRN LANSOPRAZOLE 98833409803 No Longer Active Yolande Lindsay MD PhD Active PA VITAMIN D-3 2000 UNIT CAPS 1 CAP PO DAILY CHOLECALCIFEROL 22778569457 No Longer Active Yolande Lindsay MD PhD Active CEFDINIR 300 MG CAPS by mouth twice a day CEFDINIR 55854246054 No Longer Active Gab Padron MD Active TOPAMAX 50 MG TABS 1 PO twice daily TOPIRAMATE 21676052056 Active Yolande Lindsay MD PhD Active AZITHROMYCIN 250 MG TABS 2 po qd x 1 day, then 1 po qd x 4 days AZITHROMYCIN 31659712741 No Longer Active Yolande Lindsay MD PhD Active DICLOFENAC SODIUM 75 MG TBEC 1 tablet by q 12 hours PRN headaches DICLOFENAC SODIUM 87230646666 No Longer Active Yolande Lindsay MD PhD Active FLONASE 50 MCG/ACT SUSP 1 spray each nostril am and hs FLUTICASONE PROPIONATE 20035957259 No Longer Active Todd Callaway MD Active ANUSOL-HC 25 MG SUPPOSITORY 1 rectally twice a day as needed for hemorrhoids HYDROCORTISONE JAYDEN (RECTAL) 71512298703 No Longer Active Yolande Lindsay MD PhD Active ANUSOL-HC 25 MG SUPPOSITORY 1 suppository rectally each evening as needed for anal fissure HYDROCORTISONE JAYDEN (RECTAL) 11573732856 No Longer Active LONNIE Iglesias Active VALIUM 5 MG TAB 1 po 30 minutes prior to your MRI DIAZEPAM 22533307010 No Longer Active LONNIE Iglesias Active METHOCARBAMOL 750 MG TABS 1 PO QID PRN METHOCARBAMOL 42072530147 No Longer Active Daphne Wetzel APRN Active NITROSTAT 0.4 MG SUBL as directed NITROGLYCERIN 82658054670 No Longer Active Rodrigo Sarah APRN Active ROBAXIN-750 750 MG TABS 2 four times a day for 3 days as needed for muscle spasm, then 1 four times a day as needed METHOCARBAMOL 78646112197 No Longer Active Rodrigo Sarah APRN Active HYDROCODONE-ACETAMINOPHEN 5-325 MG TABS 1 q 4-6 hrs prn HYDROCODONE-ACETAMINOPHEN 01604350759 No Longer Active Rodrigo Sarah APRN Active VERAPAMIL HCL CR 180 MG CR-TABS TAKE 1 TAB DAILY VERAPAMIL HCL 86158494473 No Longer Active Yolande Lindsay MD PhD Active BACTRIM DS 800-160 MG TAB 1 tab by mouth twice daily TRIMETHOPRIM-SULFAMETHOXAZOLE 62382754298 No Longer Active Yolande Lindsay MD PhD Active NEXIUM 40 MG PACK 1 by mouth daily ESOMEPRAZOLE MAGNESIUM 15961724868 No Longer Active Des Hines MD Active EPIPEN 2-CHARLETTE 0.3 MG/0.3ML OMARI as need for allergic reaction EPINEPHRINE 83172046485 Active Yolande Lindsay MD PhD Active LISINOPRIL 10 MG TABS 1 PO Q D FOR BP LISINOPRIL 25481239203 Active Yolande Lindsay MD PhD Active NEXIUM 40 MG CPDR 1 PO Q D DAY ESOMEPRAZOLE MAGNESIUM 67426705745 No Longer Active Sadia Perry RN Active NEXIUM 40 MG PACK 1 by mouth daily NEXIUM 40 MG PACK ESOMEPRAZOLE MAGNESIUM Inactive VERAPAMIL HCL CR 180 MG CR-TABS TAKE 1 TAB DAILY VERAPAMIL HCL CR 180 MG CR-TABS VERAPAMIL HCL Inactive HYDROCODONE-ACETAMINOPHEN 5-325 MG TABS 1 q 4-6 hrs prn HYDROCODONE-ACETAMINOPHEN 5-325 MG TABS 030818 HYDROCODONE-ACETAMINOPHEN Inactive ROBAXIN-750 750 MG TABS 2 four times a day for 3 days as needed for muscle spasm, then 1 four times a day as needed ROBAXIN-750 750 MG TABS 996787 METHOCARBAMOL Inactive NITROSTAT 0.4 MG SUBL as directed NITROSTAT 0.4 MG SUBL NITROGLYCERIN Inactive METHOCARBAMOL 750 MG TABS 1 PO QID PRN METHOCARBAMOL 750 MG TABS 965346 METHOCARBAMOL Inactive VALIUM 5 MG TAB 1 po 30 minutes prior to your MRI VALIUM 5 MG TAB 682084 DIAZEPAM Inactive ANUSOL-HC 25 MG SUPPOSITORY 1 suppository rectally each evening as needed for anal fissure ANUSOL-HC 25 MG SUPPOSITORY 1397149 HYDROCORTISONE JAYDEN (RECTAL) Inactive ANUSOL-HC 25 MG SUPPOSITORY 1 rectally twice a day as needed for hemorrhoids ANUSOL-HC 25 MG SUPPOSITORY 7269869 HYDROCORTISONE JAYDEN (RECTAL) Inactive FLONASE 50 MCG/ACT SUSP 1 spray each nostril am and hs FLONASE 50 MCG/ACT SUSP 753665 FLUTICASONE PROPIONATE Inactive DICLOFENAC SODIUM 75 MG TBEC 1 tablet by q 12 hours PRN headaches DICLOFENAC SODIUM 75 MG TBEC 484472 DICLOFENAC SODIUM Inactive PA VITAMIN D-3 2000 UNIT CAPS 1 CAP PO DAILY PA VITAMIN D-3 2000 UNIT CAPS CHOLECALCIFEROL Inactive PREVACID 30 MG CPDR Take 1 tablet by mouth daily-PRN PREVACID 30 MG CPDR 772195 LANSOPRAZOLE Inactive DOXYCYCLINE HYCLATE 100 MG TAB 1 tab twice a day for 14 days 2013 DOXYCYCLINE HYCLATE 100 MG TAB 013954 DOXYCYCLINE HYCLATE Inactive XOPENEX 1.25 MG/3ML NEBU 1 neb every 4 hours if needed for cough/congestion XOPENEX 1.25 MG/3ML NEBU 445901 LEVALBUTEROL HCL Inactive CYCLOBENZAPRINE HCL 10 MG TABS 1/2 - 1 tab by mouth three times daily if needed for spasms/pain CYCLOBENZAPRINE HCL 10 MG TABS 769508 CYCLOBENZAPRINE HCL Inactive ALBUTEROL SULFATE 0.083 % NEBU SOLN one vial per nebulizer every 4-6 hours as needed ALBUTEROL SULFATE 0.083 % NEBU SOLN 547022 ALBUTEROL SULFATE Inactive CEFTIN 500 MG TAB 1 twice a day CEFTIN 500 MG TAB 584647 CEFUROXIME AXETIL Inactive ZOFRAN ODT 4 MG TBDP 1 pill dissolved by mouth every 4 hours if needed for nausea ZOFRAN ODT 4 MG TBDP 435736 ONDANSETRON Inactive ADULT ASPIRIN EC LOW STRENGTH 81 MG TBEC Take 1 tablet by mouth daily 2014 ADULT ASPIRIN EC LOW STRENGTH 81 MG TBEC 386494 ASPIRIN Inactive CALCIUM 600+D PLUS MINERALS 600-400 [...] x 4 days AZITHROMYCIN 250 MG TABS 9422687 AZITHROMYCIN Inactive CEFDINIR 300 MG CAPS by mouth twice a day CEFDINIR 300 MG CAPS 20020708 CEFDINIR Inactive AZITHROMYCIN 250 MG TABS 2 pills on day 1, then 1 pill daily x 4 days AZITHROMYCIN 250 MG TABS 0937601 AZITHROMYCIN Inactive DOXYCYCLINE HYCLATE 100 MG CAP 1 cap by mouth twice daily DOXYCYCLINE HYCLATE 100 MG CAP 19890510 DOXYCYCLINE HYCLATE Inactive Immunizations Vaccine Administration Date Value Standard Description Seasonal influenza vaccine, injectable, containing preservative, for > 3 years old (Afluria, FluLaval, Fluzone, Fluvirin, Fluarix, Agriflu(>=18 yo)) Fluzone (>3 yrs.) [VSX127] Influenza, seasonal, injectable influenza immunization (Flu Vax) has been administered Influenza - Unspecified Formulation [CVX88] influenza virus vaccine, unspecified formulation Seasonal influenza vaccine, injectable, containing preservative, for > 3 years old (Afluria, FluLaval, Fluzone, Fluvirin, Fluarix, Agriflu(>=18 yo)) Fluzone (>3 yrs.) [VVW420] Influenza, seasonal, injectable pneumococcal immunization administered Pneumovax 23 [CVX33] pneumococcal polysaccharide vaccine, 23 valent dT (Diphtheria and Tetanus) booster given given Td(adult) unspecified formulation Boostrix (Tetanus toxoid, reduced diphtheria toxoid and acellular pertussis vaccine, adsorbed), booster Boostrix [FVN594] tetanus toxoid, reduced diphtheria toxoid, and acellular pertussis vaccine, adsorbed Vital Signs Date Name Value Unit Range Description blood pressure, diastolic - 8462-4 75 mm[Hg] BP ewldon blood pressure, systolic - 8480-6 126 mm[Hg] [...] Cardio IQ Advanced Lipid and Inlammation Panel /03013 - Chemistry cholesterol, serum 198 mg/dL 453-105 6852/04/30 HDL cholesterol, serum 65 mg/dL > OR=46 triglyceride, serum, fasting 82 mg/dL LDL cholesterol, serum 117 mg/dL cholesterol/HDL ratio, serum 3.0 calc < OR=5.0 Lab Report: CBC W/DIFF, Basic Metabolic Panel - Chemistry sodium, serum 144 mmol/L [phone]/01/21 potassium, serum 4.2 mmol/L 3.5-5.2 chloride, serum [...] Panel - Chemistry sodium, serum 144 mmol/L 323-372 6731/12/15 potassium, serum 5.4 mmol/L 3.5-5.2 chloride, serum [...] UA - Chemistry sodium, serum 143 mmol/L 258-134 2086/10/24 potassium, serum 3.9 mmol/L 3.5-5.2 chloride, serum [...] 51 mg/dL 30-200 cholesterol, serum 173 mg/dL 686-738 4602/04/28 HDL cholesterol, serum 63 mg/dL 32-96 LDL [...] 0-19 Encounters Code Encounter Date Provider Facility CPT-42857 Level 4 Est. Patient 21:29:26 CDT Yolande Lindsay MD [facility] CPT-56552 Level 3 Est. Patient 07:37:45 CDT Yolande Lindsay MD [facility] CPT-82737 Level 3 Est. Patient 17:03:46 CDT Yolande Lindsay MD [facility] CPT-27747 Level 4 Est. Patient 20:02:13 COMPUTED TOMOGRAPHY TECHNICIAN Yolande Lindsay MD PhD [facility] CPT-37801 Level 3 Est. Patient 16:02:07 COMPUTED TOMOGRAPHY TECHNICIAN Alexis Ordaz MD [facility] CPT-66074 Level 3 Est. Patient 12:41:24 COMPUTED TOMOGRAPHY TECHNICIAN Yolande Lindsay MD PhD [facility] CPT-75414 Level 3 Est. Patient 15:41:20 COMPUTED TOMOGRAPHY TECHNICIAN Yolande Lindsay MD [facility] CPT-41189 Level 3 Est. Patient 13:20:02 COMPUTED TOMOGRAPHY TECHNICIAN Yolande Lindsay MD PhD [facility] CPT-48698 Level 3 Est. Patient 15:00:38 CDT Jared Og MD [facility]-88748 Level 3 Est. Patient 10:22:32 CDT Yolande Lindsay MD [facility] [place][note 2]-17622 Level 3 Est. Patient 17:12:58 CDT Yolande Lindsay MD [facility] [place][note 2]-29881 Level 4 Est. Patient 13:30:58 CDT Yolande Lindsay MD [facility] [place][note 2]-71831 Level 4 New Patient 09:02:42 CDT Jared Og MD [facility]-50070 Level 3 Est. Patient 08:19:07 CDT Yolande Lindsay MD [facility] [place][note 2]-33359 Level 3 Est. Patient 12:00:13 COMPUTED TOMOGRAPHY TECHNICIAN Gab Padron MD [facility]-07828 Level 3 Est. Patient 16:15:23 COMPUTED TOMOGRAPHY TECHNICIAN Yolande Lindsay MD [facility] [place][note 2]-45740 Level 2 Est. Patient 19:47:15 CDT Yolande Lindsay MD [facility] [place][note 2]-96561 Level 3 Est. Patient 21:38:31 CDT Yolande Lindsay MD [facility] [place][note 2]-23676 Level 3 Est. Patient 10:25:12 CDT Adiel PERAZA [facility]-55463 Level 4 Est. Patient 10:51:58 CDT Yolande Lindsay MD [facility] [place][note 2]-09351 Level 3 Est. Patient 14:04:55 COMPUTED TOMOGRAPHY TECHNICIAN Rodrigo Sarah [facility]-14440 Level 3 Est. Patient 10:46:35 COMPUTED TOMOGRAPHY TECHNICIAN Rodrigo Sarah [facility]-96269 Level 3 Est. Patient 14:24:37 COMPUTED TOMOGRAPHY TECHNICIAN Yolande Lindsay MD [facility] CPT-56376 Level 3 Est. Patient 17:41:58 COMPUTED TOMOGRAPHY TECHNICIAN Yolande Lindsay MD [facility] CPT-18272 Level 2 Est. Patient 22:01:41 COMPUTED TOMOGRAPHY TECHNICIAN Rodrigo Sarah [facility] [place] CPT-10244 Level 2 Est. Patient 22:01:11 COMPUTED TOMOGRAPHY TECHNICIAN Rodrigo Sarah [facility] [place] CPT-41441 Level 3 Est. Patient 10:12:29 COMPUTED TOMOGRAPHY TECHNICIAN Rodrigo Sarah [facility] [place] CPT-42150 Level 3 Est. Patient 11:05:44 CDT Alexis Ordaz MD [facility] CPT-43937 Level 3 Est. Patient 14:57:20 CDT Yolande Lindsay MD [facility] CPT-93674 Level 3 Est. Patient 14:40:57 CDT Yolande Lindsay MD [facility] CPT-82407 Level 3 Est. Patient 20:55:40 CDT Yolande Lindsay MD [facility] CPT-79438 Level 3 Est. Patient 12:42:38 COMPUTED TOMOGRAPHY TECHNICIAN Yolande Lindsay MD [facility] CPT-45598 Level 3 Est. Patient 11:54:49 COMPUTED TOMOGRAPHY TECHNICIAN Des Hines MD [facility] CPT-88256 Level 3 Est. Patient 17:06:38 CDT Dewayne PERAZA [facility] Procedures Code Procedure Name Date Entry Date Standard Description [id number] Event Monitor - MC Transmission 09:12:32 CDT 08/06 [id number] Event Monitor - MC review and interp 09:12:32 CDT [id number] Event Monitor - MC recording 09:12:32 CDT CPT-78501 EKG Trac and Interp 16:50:22 CDT CPT-J1030 Depo Medrol 40 mg (Methyl Prednisolone Acetate) 17:05: 54 CDT CPT-J1100 Decadron 4mg (Dexamethasone) 17:05:54 CDT CPT-95755 Abx/Therapy Injection 17:05:54 CDT CPT-J1100 Decadron 4mg (Dexamethasone) 16:55:28 CDT CPT-J1030 Depo Medrol 40 mg (Methyl Prednisolone Acetate) 16:55: 28 CDT CPT-24003 Ankle Complete - Min 3V 15:58:50 CDT CPT-23642 Knee 3V 15:58:50 CDT CPT-36938 Hip comp min 2V 15:58:50 CDT CPT-J2270 Morphine Sulfate 10 mg 14:25:44 COMPUTED TOMOGRAPHY TECHNICIAN CPT-J2550 Phenergan 12.5 mg (Promethazine) 14:25:44 COMPUTED TOMOGRAPHY TECHNICIAN CPT-30161 Abx/Therapy Injection 14:25:44 COMPUTED TOMOGRAPHY TECHNICIAN CPT-J2550 Phenergan 12.5 mg (Promethazine) 14:08:03 COMPUTED TOMOGRAPHY TECHNICIAN CPT-J2270 Morphine Sulfate 10 mg 14:08:03 COMPUTED TOMOGRAPHY TECHNICIAN CPT-74346 Bladder Scan 15:00:38 CDT CPT-TCMM Transitional Care Mgmt-Moderate 09:52:22 CDT CPT-J1030 Depo Medrol 40 mg (Methyl Prednisolone Acetate) 10:55: 18 CDT CPT-J1100 Decadron 4mg (Dexamethasone) 10:55:18 CDT CPT-33630 Abx/Therapy Injection 10:55:18 CDT CPT-J1030 Depo Medrol 40 mg (Methyl Prednisolone Acetate) 10:22: 32 CDT CPT-J1100 Decadron 4mg (Dexamethasone) 10:22:32 CDT CPT-64825 Postop F/U Visit 14:37:13 CDT CPT-14110 Ankle Complete - Min 3V 17:11:58 CDT CPT-06873 Foot comp min 3V 17:11:58 CDT CPT-15582 Bladder Scan 09:56:58 CDT CPT-20543 Postop F/U Visit 09:56:58 CDT CPT-97623 Cystoscopy 09:02:42 CDT CPT-28907 Bladder Scan 09:02:42 CDT CPT-18269 Abd single AP View 16:00:35 CDT CPT-47282 Administration single or combination vaccine inc oral 10 :15:43 CDT CPT-62597 Influenza split virus > age 3 10:15:43 CDT CPT-91749 Nail Avulsion 09:24:57 CDT CPT-OV Office Visit 11:15:41 CDT CPT-48426 Abx/Therapy Injection 10:51:30 CDT CPT-J3301 Kenalog 40 mg (Triamcinolone Acetonide) 10:25:12 CDT CPT-J1100 Decadron 4mg (Dexamethasone) 10:25:12 CDT CPT-06612 Anoscopy diagnostic 10:36:12 CDT CPT-OV Office Visit 15:34:31 CDT CPT-67120 Abx/Therapy Injection 08:21:15 COMPUTED TOMOGRAPHY TECHNICIAN CPT-J1885 Toradol 60 mg (Ketorolac) 10:46:35 COMPUTED TOMOGRAPHY TECHNICIAN CPT-OV Office Visit 19:51:16 COMPUTED TOMOGRAPHY TECHNICIAN CPT-98460 Spec Collection and Handling Fee 14:34:18 COMPUTED TOMOGRAPHY TECHNICIAN CPT-PV Prev. Care Visit 14:19:18 COMPUTED TOMOGRAPHY TECHNICIAN CPT-36755 Postop F/U Visit 14:47:51 COMPUTED TOMOGRAPHY TECHNICIAN CPT-31119 Postop F/U Visit 15:15:14 COMPUTED TOMOGRAPHY TECHNICIAN CPT-66157 Postop F/U Visit 14:41:43 CDT CPT-66374 Postop F/U Visit 15:47:46 CDT CPT-OV Office Visit 15:27:23 CDT CPT-OV Office Visit 17:20:34 CDT CPT-99412 Abx/Therapy Injection 15:05:57 CDT CPT-J1100 Decadron 8mg (Dexamethasone) 14:44:57 CDT CPT-J1040 Depo Medrol 80 mg (Methyl Prednisolone Acetate) 14:44: 57 CDT CPT-JTINJ Joint Injection 10:17:37 CDT CPT-35933 Administration 2+ single or combination vaccines inc oral 13:01:46 COMPUTED TOMOGRAPHY TECHNICIAN CPT-23179 Administration single or combination vaccine inc oral 13 :01:46 COMPUTED TOMOGRAPHY TECHNICIAN CPT-63142 Pneumovax 13:01:46 COMPUTED TOMOGRAPHY TECHNICIAN CPT-45758 Influenza split virus > age 3 13:01:46 COMPUTED TOMOGRAPHY TECHNICIAN CPT-31881 Administration single or combination vaccine inc oral 08 :56:49 CDT CPT-85876 Tdap 08:56:49 CDT
--- OUTSIDE RECORDS SUMMARY | 2017-03-21 19:51 | XMS REPORT | Clinical Summary ---
Author Author Admin, E Organization [employer] Address Unknown Phone Unavailable Allergies, Adverse Reactions, Alerts Allergy Name Reaction Description Start Date Severity Status Provider VALENTIN Critical Active Rodrigo Fracharlottel LEAD IOS DEVELOPER CHLORHEXIDINE GLUCONATE tongue and gums swollen Critical Active Hoa Otto RMA NORFLEX Rash Critical Active Silvestrellina Frazell LEAD IOS DEVELOPER TRAZODONE HCL sees things Critical Active [...] PhD Ingrowing nail INGROWN TOENAIL 703.0 Resolved Yolnade Lindsay MD PhD Ingrowing nail Hip pain, [...] MD Lumbago Cough 786.2 Active Jillina Tyrel LEAD IOS DEVELOPER Cough 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 Jillina Frazellilian LEAD IOS DEVELOPER 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 Anemia 285.9 Active Gab Padron MD Anemia, unspecified Conjunctivitis 372.30 Active Jillnacho Sarah APRN Conjunctivitis, unspecified Sinusitis 473.9 Active Silvestrellina Frazell LEAD IOS DEVELOPER Unspecified sinusitis (chronic) Nonspecific syndrome suggestive of viral illness 079.99 Active Jillina Frazell LEAD IOS DEVELOPER Unspecified viral infection Laryngitis 464.00 Active Jillina Frazell LEAD IOS DEVELOPER Acute laryngitis without mention of obstruction Abdominal [...] Flank pain, left 789.09 Active Jillina Frazell LEAD IOS DEVELOPER Abdominal pain, other specified site; multiple sites Abdominal pain, generalized 789.07 Active Jillina Farshadzell LEAD IOS DEVELOPER Abdominal pain, generalized Back pain, thoracic region, left 724.1 Active Jillina Frazell LEAD IOS DEVELOPER Pain in thoracic spine Abdominal pain, left lower quadrant 789.04 Active Gab Padron MD Abdominal pain, left lower quadrant Slowing of urinary stream 788.62 Active Gab Padron MD Slowing of urinary stream Interstitial cystitis 595.1 Active Gab Padron MD Chronic interstitial cystitis Flank Pain Active Jared Og MD Abdominal pain, unspecified site Foot pain, left 729.5 Active Gab Padron MD Pain in limb FOOT PAIN, RIGHT ICD-729.5 Inactive Yolande Lindsay MD PhD ANKLE PAIN, RIGHT ICD-719.47 Inactive Yolande Lindsay MD PhD EDEMA, LIMB ICD-782.3 Inactive Yolande Lindsay MD PhD ABDOMINAL PAIN ICD-789.00 Inactive Yolande Lindsay MD PhD PLANTAR FASCIITIS ICD-728.71 Inactive Yolande Lindsay MD PhD UTI ICD-599.0 Inactive Yolande Lindsay MD PhD OTHER SCREENING MAMMOGRAM ICD-V76.12 Inactive Yolande Lindsay MD PhD ALLERGIC REACTION, ACUTE ICD-995.3 Inactive Alexis Ordaz MD GERD ICD-530.81 Inactive Todd Callaway MD AFTERCARE FOLLOW SURGERY MUSCULOSKEL SYSTEM NEC ICD-V58.78 02/06 Inactive Todd Callaway MD FREQUENCY, URINARY ICD-788.41 Inactive Yolande Lindsay MD PhD AFTERCARE FLW SURG TEETH ORL CAV&DIGESTV SYS NEC ICD-V58.75 04/25 Inactive Yolande Lindsay MD PhD BACK PAIN ICD-724.5 Inactive Yolande Lindsay MD PhD KNEE PAIN ICD-719.46 Inactive Yolande Lindsay MD PhD ROUTINE GYNECOLOGICAL EXAMINATION ICD-V72.31 Inactive Yolande Lindsay MD PhD MUSCLE PAIN ICD-729.1 Inactive Yolande Lindsay MD PhD LONG-TERM (CURRENT) USE OF OTHER MEDICATIONS ICD-V58.69 Inactive Yolande Lindsay MD PhD HEADACHE ICD-784.0 [...] DERMATITIS ICD-692.6 Inactive Yolande Lindsay MD PhD CHEST PAIN, UNSPECIFIED ICD-786.50 Inactive Yolande Lindsay MD PhD GERD ICD-530.81 Inactive Yolande Lindsay MD PhD 07/16 FISSURE, ANAL ICD-565.0 Inactive Yoladne Lindsay MD PhD INGROWN TOENAIL ICD-703.0 Inactive Yolande Lindsay MD PhD INGROWN TOENAIL ICD-703.0 Inactive Yolande Lindsay MD PhD Hip pain, left ICD-719.45 Inactive Yolande Lindsay MD PhD Sinusitis, maxillary, acute ICD-461.0 Inactive Yolande Lindsay MD PhD Sinusitis ICD-461.9 Inactive Yolande Lindsay MD PhD Pallor ICD-782.61 Inactive Yolande Lindsay MD PhD 2013 Flank pain, left ICD-789.09 Inactive Yolande Lindsay MD PhD ANGIOEDEMA ICD-995.1 Inactive Yolande Lindsay MD PhD RECTAL BLEEDING ICD-569.3 Inactive Yolande Lindsay MD PhD Foot pain, right ICD-729.5 Inactive Yolande Lindsay MD PhD Tick bite ICD-989.5 Inactive Yolande Lindsay MD PhD Hematuria ICD-599.70 Inactive Yolande Lindsay MD PhD Ankle pain, right ICD-719.47 Inactive Yolande Lindsay MD PhD URI ICD-465.9 Inactive Yolande Lindsay MD PhD 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 Inactive Yolande Lindsay MD PhD Flank pain ICD-789.09 Inactive Yolande Lindsay MD PhD Sinusitis ICD-461.9 Inactive Yolande Lindsay MD PhD Abdominal pain, LLQ ICD-789.04 Inactive Yolande Lindsay MD PhD Accidental fall ICD-E888.9 Inactive Yolande Lindsay MD PhD Muscle spasm, back ICD-724.8 Inactive Yolande Lindsay MD PhD Sinusitis, acute ICD-461.9 Inactive Yolande Lindsay MD PhD Hip pain, left ICD-719.45 Inactive Yolande Lindsay MD PhD Knee sprain, left ICD-844.9 Inactive Yolande Lindsay MD PhD Ankle sprain, left ICD-845.00 Inactive Yolande Lindsay MD PhD Medication List Medication Instructions Start Date Stop Date Generic Name NDC Status Provider Patient Instruction ZOFRAN ODT 4 MG TBDP 1 po q6hr PRN Nausea ONDANSETRON 97805873296 Active Jillina Frazell LEAD IOS DEVELOPER Active IBUPROFEN 600 MG TAB 1 tablet by mouth every 6 hours for 7 days, then 1 tablet every 6 hours as needed. Take with food IBUPROFEN 55322623718 Active Jillina Frazell LEAD IOS DEVELOPER Active BACTRIM DS 800-160 MG TAB 1 tab by mouth twice daily TRIMETHOPRIM-SULFAMETHOXAZOLE 81985877961 No Longer Active Gab Padron MD Active ADVAIR DISKUS 250-50 MCG/DOSE AEPB 1 puff BID FLUTICASONE- SALMETEROL 54513136262 Active Jillina Frazellilian ZAPATAN Active LEVOTHYROXINE SODIUM 75 MCG TABS Take 1 tab daily LEVOTHYROXINE SODIUM 31422325992 No Longer Active Mariana FLEMING Active SYNTHROID 88 MCG ORAL TABS Take one by mouth daily LEVOTHYROXINE SODIUM 00598083907 Active Mariana FLEMING Active CHERATUSSIN AC 100-10 MG/5ML SYRP 1 tsp by mouth every 4 hours as needed for cough GUAIFENESIN-CODEINE 96742604783 No Longer Active Gab Padron MD Active POLYTRIM 22469-7.1 UNIT/ML-% SOLN 1 gtt to affected eye q3h x 7 days POLYMYXIN B-TRIMETHOPRIM 82325219133 No Longer Active Gab Padron MD Active FLUTICASONE PROPIONATE 50 MCG/ACT SUSP 1 to 2 sprays each nostril daily 04/21 FLUTICASONE PROPIONATE 54566652860 No Longer Active Gab Padron MD Active TRILEPTAL 600 MG TABS Take one 1 tablet in Am and 1 tablet at night OXCARBAZEPINE 75884705539 Active Gab Padron MD Active CEFDINIR 300 MG CAPS 1 po BID x 10 days CEFDINIR 95948919381 No Longer Active Rodrigo Sarah APRN Active CEFTIN 500 MG TAB 1 twice a day CEFUROXIME AXETIL 73232721409 No Longer Active Gab Padron MD Active AZITHROMYCIN 250 MG TABS 2 po qd x 1 day, then 1 po qd x 4 days AZITHROMYCIN 30138615247 No Longer Active Rodrigo Sarah APRN Active CLARITIN 10 MG TAB 1 tablet by mouth daily as needed for allergies LORATADINE 79159910082 Active Rodrigo Sarah APRN Active OXYCODONE HCL 5 MG ORAL CAPS 1 TAB PO Q HS OXYCODONE HCL 27188382116 No Longer Active Silvestrellnacho Sarah APRN Active NIASPAN 500 MG ORAL CR-TABS 1 pill nightly x 1 week, then 2 pills nightly x 1 week, then 3 pills nightly x 1 week, then 4 pills nightly NIACIN (ANTIHYPERLIPIDEMIC) 52868955152 No Longer Active Rodrigo Sarah APRN Active NIACIN 500 MG TABS 1 pill by mouth nightly x 1 week, then 2 pills x 1 week, then 3 pills x 1 week, then 4 pills nightly - take after evening meal, with applesauce or an apple NIACIN 15001083096 No Longer Active Yolande Lindsay MD PhD Active FISH OIL 1000 MG CAPS 3 pills daily OMEGA-3 FATTY ACIDS 82499701955 Active Yolande Lindsay MD PhD Active TRIAMCINOLONE ACETONIDE 0.1 % CREA apply bid sparingly to rash TRIAMCINOLONE ACETONIDE 40682680043 Active Yolande Lindsay MD PhD Active FUROSEMIDE 20 MG TAB 1 tablet by mouth daily FUROSEMIDE 25879009490 Active Tisha Lambert LEAD IOS DEVELOPER Active LISINOPRIL 20 MG ORAL TABS 1 tab by mouth daily LISINOPRIL 19756135298 Active Gab Padron MD Active FUROSEMIDE 20 MG TABS 1 pill by mouth daily, for edema FUROSEMIDE 36543374233 No Longer Active Yolande Lindsay MD PhD Active ATORVASTATIN CALCIUM 10 MG TABS 1 pill by mouth daily, for cholesterol 09/06 ATORVASTATIN CALCIUM 87154674316 Active Gab Padron MD Active CALCIUM 600+D PLUS MINERALS 600-400 MG-UNIT ORAL CHEW 1 tab by mouth daily CALCIUM CARBONATE-VIT D-MIN 83844886726 No Longer Active Yolande Lindsay MD PhD Active CYCLOBENZAPRINE HCL 10 MG TABS 1 tablet by mouth three times daily as needed for muscle spasm/pain CYCLOBENZAPRINE HCL 79543720411 Active Yolande Lindsay MD PhD Active ONDANSETRON 4 MG TBDP 1 q4h PRN nausea ONDANSETRON 86714712740 Active Yolande Lindsay MD PhD Active ADULT ASPIRIN EC LOW STRENGTH 81 MG TBEC Take 1 tablet by mouth daily 2014 ASPIRIN 53937729996 No Longer Active Yolande Lindsay MD PhD Active ZOFRAN ODT 4 MG TBDP 1 pill dissolved by mouth every 4 hours if needed for nausea ONDANSETRON 82628038824 No Longer Active Yolande Lindsay MD PhD Active CEFTIN 500 MG TAB 1 twice a day CEFUROXIME AXETIL 87641697587 No Longer Active Yolande Lindsay MD PhD Active ALBUTEROL SULFATE 0.083 % NEBU SOLN one vial per nebulizer every 4-6 hours as needed ALBUTEROL SULFATE 43017365581 No Longer Active Alexis Ordaz MD Active DOXYCYCLINE HYCLATE 100 MG CAP 1 cap by mouth twice daily DOXYCYCLINE HYCLATE 87919110156 No Longer Active Yolande Lindsay MD PhD Active CYCLOBENZAPRINE HCL 10 MG TABS 1/2 - 1 tab by mouth three times daily if needed for spasms/pain CYCLOBENZAPRINE HCL 26940946651 No Longer Active Yolande Lindsay MD PhD Active AZITHROMYCIN 250 MG TABS 2 pills on day 1, then 1 pill daily x 4 days AZITHROMYCIN 97400497777 No Longer Active Yolande Lindsay MD PhD Active XOPENEX 1.25 MG/3ML NEBU 1 neb every 4 hours if needed for cough/congestion LEVALBUTEROL HCL 67750904172 No Longer Active Yolande Lindsay MD PhD Active DOXYCYCLINE HYCLATE 100 MG TAB 1 tab twice a day for 14 days 2013 DOXYCYCLINE HYCLATE 20185212588 No Longer Active Yolande Lindsay MD PhD Active PREVACID 30 MG CPDR Take 1 tablet by mouth daily-PRN LANSOPRAZOLE 44523408239 No Longer Active Yolande Lindsay MD PhD Active PA VITAMIN D-3 2000 UNIT CAPS 1 CAP PO DAILY CHOLECALCIFEROL 18201719915 No Longer Active Yolande Lindsay MD PhD Active CEFDINIR 300 MG CAPS by mouth twice a day CEFDINIR 02395119666 No Longer Active Gab Padron MD Active TOPAMAX 50 MG TABS 1 PO twice daily TOPIRAMATE 76539282619 Active Yolande Lindsay MD PhD Active AZITHROMYCIN 250 MG TABS 2 po qd x 1 day, then 1 po qd x 4 days AZITHROMYCIN 52258908752 No Longer Active Yolande Lindsay MD PhD Active DICLOFENAC SODIUM 75 MG TBEC 1 tablet by q 12 hours PRN headaches DICLOFENAC SODIUM 71099940544 No Longer Active Yolande Lindsay MD PhD Active FLONASE 50 MCG/ACT SUSP 1 spray each nostril am and hs FLUTICASONE PROPIONATE 21107983811 No Longer Active Todd Callaway MD Active ANUSOL-HC 25 MG SUPPOSITORY 1 rectally twice a day as needed for hemorrhoids HYDROCORTISONE JAYDEN (RECTAL) 79518952316 No Longer Active Yolande Lindsay MD PhD Active ANUSOL-HC 25 MG SUPPOSITORY 1 suppository rectally each evening as needed for anal fissure HYDROCORTISONE JAYDEN (RECTAL) 89579356855 No Longer Active LONNIE Iglesias Active VALIUM 5 MG TAB 1 po 30 minutes prior to your MRI DIAZEPAM 16170746412 No Longer Active LONNIE Iglesias Active METHOCARBAMOL 750 MG TABS 1 PO QID PRN METHOCARBAMOL 93790321660 No Longer Active Daphne Wetzel APRN Active NITROSTAT 0.4 MG SUBL as directed NITROGLYCERIN 02102402995 No Longer Active Rodrigo Sarah APRN Active ROBAXIN-750 750 MG TABS 2 four times a day for 3 days as needed for muscle spasm, then 1 four times a day as needed METHOCARBAMOL 21085709926 No Longer Active Rodrigo Sarah APRN Active HYDROCODONE-ACETAMINOPHEN 5-325 MG TABS 1 q 4-6 hrs prn HYDROCODONE-ACETAMINOPHEN 30907781190 No Longer Active Rodrigo Sarah APRN Active VERAPAMIL HCL CR 180 MG CR-TABS TAKE 1 TAB DAILY VERAPAMIL HCL 93372108739 No Longer Active Yolande Lindsay MD PhD Active BACTRIM DS 800-160 MG TAB 1 tab by mouth twice daily TRIMETHOPRIM-SULFAMETHOXAZOLE 99229968424 No Longer Active oYlande Lindsay MD PhD Active NEXIUM 40 MG PACK 1 by mouth daily ESOMEPRAZOLE MAGNESIUM 86930128887 No Longer Active Des Hines MD Active EPIPEN 2-CHARLETTE 0.3 MG/0.3ML OMARI as need for allergic reaction EPINEPHRINE 72530910001 Active Yolande Lindsay MD PhD Active NEXIUM 40 MG CPDR 1 PO Q D DAY ESOMEPRAZOLE MAGNESIUM 39258175308 No Longer Active Sadia Perry RN Active NEXIUM 40 MG PACK 1 by mouth daily NEXIUM 40 MG PACK ESOMEPRAZOLE MAGNESIUM Inactive VERAPAMIL HCL CR 180 MG CR-TABS TAKE 1 TAB DAILY VERAPAMIL HCL CR 180 MG CR-TABS VERAPAMIL HCL Inactive HYDROCODONE-ACETAMINOPHEN 5-325 MG TABS 1 q 4-6 hrs prn HYDROCODONE-ACETAMINOPHEN 5-325 MG TABS 566894 HYDROCODONE-ACETAMINOPHEN Inactive ROBAXIN-750 750 MG TABS 2 four times a day for 3 days as needed for muscle spasm, then 1 four times a day as needed ROBAXIN-750 750 MG TABS 623031 METHOCARBAMOL Inactive NITROSTAT 0.4 MG SUBL as directed NITROSTAT 0.4 MG SUBL NITROGLYCERIN Inactive METHOCARBAMOL 750 MG TABS 1 PO QID PRN METHOCARBAMOL 750 MG TABS 397356 METHOCARBAMOL Inactive VALIUM 5 MG TAB 1 po 30 minutes prior to your MRI VALIUM 5 MG TAB 038390 DIAZEPAM Inactive ANUSOL-HC 25 MG SUPPOSITORY 1 suppository rectally each evening as needed for anal fissure ANUSOL-HC 25 MG SUPPOSITORY 2805815 HYDROCORTISONE JAYDEN (RECTAL) Inactive ANUSOL-HC 25 MG SUPPOSITORY 1 rectally twice a day as needed for hemorrhoids ANUSOL-HC 25 MG SUPPOSITORY 0514423 HYDROCORTISONE JAYDEN (RECTAL) Inactive FLONASE 50 MCG/ACT SUSP 1 spray each nostril am and hs FLONASE 50 MCG/ACT SUSP FLUTICASONE PROPIONATE Inactive DICLOFENAC SODIUM 75 MG TBEC 1 tablet by q 12 hours PRN headaches DICLOFENAC SODIUM 75 MG TBEC 500199 DICLOFENAC SODIUM Inactive PA VITAMIN D-3 2000 UNIT CAPS 1 CAP PO DAILY PA VITAMIN D-3 2000 UNIT CAPS CHOLECALCIFEROL Inactive PREVACID 30 MG CPDR Take 1 tablet by mouth daily-PRN PREVACID 30 MG CPDR 388273 LANSOPRAZOLE Inactive DOXYCYCLINE HYCLATE 100 MG TAB 1 tab twice a day for 14 days 2013 DOXYCYCLINE HYCLATE 100 MG TAB 1363962 DOXYCYCLINE HYCLATE Inactive XOPENEX 1.25 MG/3ML NEBU 1 neb every 4 hours if needed for cough/congestion XOPENEX 1.25 MG/3ML NEBU 797884 LEVALBUTEROL HCL Inactive CYCLOBENZAPRINE HCL 10 MG TABS 1/2 - 1 tab by mouth three times daily if needed for spasms/pain CYCLOBENZAPRINE HCL 10 MG TABS 544774 CYCLOBENZAPRINE HCL Inactive ALBUTEROL SULFATE 0.083 % NEBU SOLN one vial per nebulizer every 4-6 hours as needed ALBUTEROL SULFATE 0.083 % NEBU SOLN 955185 ALBUTEROL SULFATE Inactive CEFTIN 500 MG TAB 1 twice a day CEFTIN 500 MG TAB 232385 CEFUROXIME AXETIL Inactive ZOFRAN ODT 4 MG TBDP 1 pill dissolved by mouth every 4 hours if needed for nausea ZOFRAN ODT 4 MG TBDP 550902 ONDANSETRON Inactive ADULT ASPIRIN EC LOW STRENGTH 81 MG TBEC Take 1 tablet by mouth daily 2014 ADULT ASPIRIN EC LOW STRENGTH 81 MG TBEC 091570 ASPIRIN Inactive CALCIUM 600+D PLUS MINERALS 600-400 [...] or an apple NIACIN 500 MG TABS 914479 NIACIN Inactive NIASPAN 500 MG ORAL CR-TABS 1 pill nightly x 1 week, then 2 pills nightly x 1 week, then 3 pills nightly x 1 week, then 4 pills nightly NIASPAN 500 MG ORAL CR-TABS NIACIN (ANTIHYPERLIPIDEMIC) Inactive OXYCODONE HCL 5 MG ORAL CAPS 1 TAB PO Q HS OXYCODONE HCL 5 MG ORAL CAPS 7845633 OXYCODONE HCL Inactive FLUTICASONE PROPIONATE 50 MCG/ACT SUSP 1 to 2 sprays each nostril daily 04/21 FLUTICASONE PROPIONATE 50 MCG/ACT SUSP 113762 FLUTICASONE PROPIONATE Inactive POLYTRIM 37971-2.1 UNIT/ML-% SOLN 1 gtt to affected eye q3h x 7 days POLYTRIM 99522-7.1 UNIT/ML-% SOLN 691069 POLYMYXIN B- TRIMETHOPRIM Inactive CHERATUSSIN AC 100-10 MG/5ML SYRP 1 tsp by mouth every 4 hours as needed for cough CHERATUSSIN AC 100-10 MG/5ML SYRP 853995 GUAIFENESIN-CODEINE Inactive LEVOTHYROXINE SODIUM 75 MCG TABS Take 1 tab daily LEVOTHYROXINE SODIUM 75 MCG TABS 051534 LEVOTHYROXINE SODIUM Inactive BACTRIM DS 800-160 MG TAB 1 tab by mouth twice daily BACTRIM DS 800-160 MG TAB 034441 TRIMETHOPRIM-SULFAMETHOXAZOLE Inactive AZITHROMYCIN 250 MG TABS 2 po qd x 1 day, then 1 po qd x 4 days AZITHROMYCIN 250 MG TABS 5185812 AZITHROMYCIN Inactive CEFDINIR 300 MG CAPS by mouth twice a day CEFDINIR 300 MG CAPS 221165 CEFDINIR Inactive AZITHROMYCIN 250 MG TABS 2 pills on day 1, then 1 pill daily x 4 days AZITHROMYCIN 250 MG TABS 8538353 AZITHROMYCIN Inactive DOXYCYCLINE HYCLATE 100 MG CAP 1 cap by mouth twice daily DOXYCYCLINE HYCLATE 100 MG CAP 7295192 DOXYCYCLINE HYCLATE Inactive FUROSEMIDE 20 MG TABS 1 pill by mouth daily, for edema FUROSEMIDE 20 MG TABS 619720 FUROSEMIDE Inactive AZITHROMYCIN 250 MG TABS 2 po qd x 1 day, then 1 po qd x 4 days AZITHROMYCIN 250 MG TABS 8415810 AZITHROMYCIN Inactive CEFTIN 500 MG TAB 1 twice a day CEFTIN 500 MG TAB 249190 CEFUROXIME AXETIL Inactive CEFDINIR 300 MG CAPS 1 po BID x 10 days CEFDINIR 300 MG CAPS 211143 CEFDINIR Inactive BACTRIM DS 800-160 MG TAB 1 tab by mouth twice daily BACTRIM DS 800-160 MG TAB 449565 TRIMETHOPRIM-SULFAMETHOXAZOLE Inactive Immunizations Vaccine Administration Date Value Standard Description Seasonal influenza vaccine, injectable, containing preservative, for > 3 years old (Afluria, FluLaval, Fluzone, Fluvirin, Fluarix, Agriflu(>=18 yo)) Fluzone (>3 yrs.) [HYC653] Influenza, seasonal, injectable influenza immunization (Flu Vax) has been administered Influenza - Unspecified Formulation [CVX88] influenza virus vaccine, unspecified formulation Seasonal influenza vaccine, injectable, containing preservative, for > 3 years old (Afluria, FluLaval, Fluzone, Fluvirin, Fluarix, Agriflu(>=18 yo)) Fluzone (>3 yrs.) [FQI080] Influenza, seasonal, injectable pneumococcal immunization administered Pneumovax 23 [CVX33] pneumococcal polysaccharide vaccine, 23 valent dT (Diphtheria and Tetanus) booster given given Td(adult) unspecified formulation Boostrix (Tetanus toxoid, reduced diphtheria toxoid and acellular pertussis vaccine, adsorbed), booster Boostrix [IRI982] tetanus toxoid, reduced diphtheria toxoid, and acellular [...] Panel - Chemistry sodium, serum 142 mmol/L 552-351 9837/06/30 potassium, serum 4.4 mmol/L 3.5-5.2 chloride, serum 108 mmol/L 98-107 carbon dioxide, venous blood 25.1 mmol/L 21.0-32.0 blood glucose 82 mg/dL 65-110 calcium, serum 9.1 mg/dL 8.5-10.1 urea nitrogen, blood 18 mg/dL 7-18 creatinine, serum 1.31 mg/dL 0.55-1.30 Lab Report: [facility] Advanced Lipid and Inlammation Panel /15858 - Chemistry cholesterol, serum 148 mg/dL 572-165 2890/09/02 HDL cholesterol, serum 55 mg/dL > OR=46 [...] (L) - Chemistry sodium, serum 145 mmol/L 769-793 7575/09/02 potassium, serum 4.6 mmol/L 3.5-5.2 chloride, serum [...] Rate - Chemistry sodium, serum 139 mmol/L 483-630 4170/03/24 carbon dioxide, venous blood 22.4 mmol/L 21.0-32.0 [...] ... - Chemistry sodium, serum 143 mmol/L 395-378 1554/05/02 carbon dioxide, venous blood 25.6 mmol/L 21.0-32.0 [...] Negative mg/dL Negative sodium, serum 142 mmol/L 315-604 5809/07/18 carbon dioxide, venous blood 27.8 mmol/L 21.0-32.0 [...] mg/dL Encounters Code Encounter Date Provider Facility CPT-51646 Level 3 Est. Patient 15:27:02 CDT Jared Og MD [facility] CPT-64843 Level 4 Est. Patient 09:25:27 CDT Gab Padron MD [facility] CPT-29578 Level 3 Est. Patient 10:29:41 CDT Rodrigo Sarah APRN [facility] CPT-25142 Level 4 Est. Patient 17:51:05 CDT Gab Padron MD [facility] CPT-00699 Level 3 Est. Patient 14:18:08 CDT Gab Padron MD [facility] CPT-68915 Level 4 Est. Patient 10:18:54 CDT Gab Padron MD [facility]-65485 Level 3 Est. Patient 11:30:07 CDT Rodrigo Sarah APRN [facility]-04712 Level 4 Est. Patient 21:02:30 VOICE OVER ARTIST Gab Padron MD [facility]-23446 Level 3 Est. Patient 11:02:19 VOICE OVER ARTIST Gab Padron MD [facility]-76020 Level 4 Est. Patient 22:24:31 VOICE OVER ARTIST Gab Padron MD [facility]-61373 Level 3 Est. Patient 18:33:46 VOICE OVER ARTIST Gab Padron MD [facility]-20871 Level 3 Est. Patient 16:19:11 CDT Yolande Lindsay MD [facility]-45187 Level 3 Est. Patient 18:59:14 CDT Yolande Lindsay MD [facility]-44417 Level 4 Est. Patient 21:29:26 CDT Yolande Lindsay MD [facility]-99372 Level 3 Est. Patient 07:37:45 CDT Yolande Lindsay MD [facility]-94979 Level 3 Est. Patient 17:03:46 CDT Yolande Lindsay MD [facility]-08245 Level 4 Est. Patient 20:02:13 VOICE OVER ARTIST Yolande Lindsay MD [facility]-24129 Level 3 Est. Patient 16:02:07 VOICE OVER ARTIST Alexis Ordaz MD [facility]-42446 Level 3 Est. Patient 12:41:24 VOICE OVER ARTIST Yolande Lindsay MD [facility]02398 Level 3 Est. Patient 15:41:20 VOICE OVER ARTIST Yolande Lindsay MD [facility]-54753 Level 3 Est. Patient 13:20:02 VOICE OVER ARTIST Yolande Lindsay MD [facility] CPT-28128 Level 3 Est. Patient 15:00:38 CDT Jared Og MD [facility]-06048 Level 3 Est. Patient 10:22:32 CDT Yolande Lindsay MD [facility]-87648 Level 3 Est. Patient 17:12:58 CDT Yolande Lindsay MD [facility]-06879 Level 4 Est. Patient 13:30:58 CDT Yolande Lindsay MD [facility]-03786 Level 4 New Patient 09:02:42 CDT Jared Og MD [facility]-83699 Level 3 Est. Patient 08:19:07 CDT Yolande Lindsay MD [facility]-41823 Level 3 Est. Patient 12:00:13 VOICE OVER ARTIST Gab Padron MD [facility]-24320 Level 3 Est. Patient 16:15:23 VOICE OVER ARTIST Yolande Lindsay MD [facility]-10706 Level 2 Est. Patient 19:47:15 CDT Yolande Lindsay MD [facility]-60540 Level 3 Est. Patient 21:38:31 CDT Yolande Lindsay MD [facility]-63464 Level 3 Est. Patient 10:25:12 CDT Adiel PERAZA [facility] CPT-32346 Level 4 Est. Patient 10:51:58 CDT Yolande Lindsay MD [facility]-50504 Level 3 Est. Patient 14:04:55 VOICE OVER ARTIST Rodrigo Sarah [facility]-84728 Level 3 Est. Patient 10:46:35 VOICE OVER ARTIST Rodrigo Sarah [facility] CPT-14183 Level 3 Est. Patient 14:24:37 VOICE OVER ARTIST Yolande Lindsay MD [facility] CPT-35449 Level 3 Est. Patient 17:41:58 VOICE OVER ARTIST Yolande Lindsay MD [facility] CPT-47674 Level 2 Est. Patient 22:01:41 VOICE OVER ARTIST Rodrigo Sarah [facility] CPT-34682 Level 2 Est. Patient 22:01:11 VOICE OVER ARTIST Rodrigo Sarah [facility] CPT-05077 Level 3 Est. Patient 10:12:29 VOICE OVER ARTIST Rodrigo Sarah [facility] CPT-36630 Level 3 Est. Patient 11:05:44 CDT Alexis Ordaz MD [facility] CPT-03251 Level 3 Est. Patient 14:57:20 CDT Yolande Lindsay MD [facility] CPT-80788 Level 3 Est. Patient 14:40:57 CDT Yolande Lindsay MD [facility] CPT-18620 Level 3 Est. Patient 20:55:40 CDT Yolande Lindsay MD [facility] CPT-80499 Level 3 Est. Patient 12:42:38 VOICE OVER ARTIST Yolande Lindsay MD [facility]-52706 Level 3 Est. Patient 11:54:49 VOICE OVER ARTIST Des Hines MD [facility] CPT-82628 Level 3 Est. Patient 17:06:38 CDT Dewayne PERAZA [facility] Procedures Code Procedure Name Date Entry Date Standard Description CPT-83223 Foot, left, comp min 3V - XRAY USE ONLY 09:24:54 CDT CPT-87986 Abd single AP View - XRAY USE ONLY 11:16:17 CDT CPT-82496 T spine AP/ Lat - XRAY USE ONLY 09:34:21 CDT CPT-32021 Chest 2V Frontal and Lat - XRAY USE ONLY 10:48:51 CDT CPT-02352 LS spine comp w obliq 13:28:00 VOICE OVER ARTIST CPT-J1040 Depo Medrol 80 mg (Methyl Prednisolone Acetate) 10:51: 28 VOICE OVER ARTIST CPT-J1100 Decadron 8mg (Dexamethasone) 10:51:28 VOICE OVER ARTIST CPT-43622 Abx/Therapy Injection 10:51:28 VOICE OVER ARTIST CPT-J1100 Decadron 8mg (Dexamethasone) 21:02:30 VOICE OVER ARTIST CPT-J1040 Depo Medrol 80 mg (Methyl Prednisolone Acetate) 21:02: 30 VOICE OVER ARTIST EPT-[id number] Event Monitor - MC Transmission 09:12:32 CDT 08/06 [id number] Event Monitor - MC review and interp 09:12:32 CDT [id number] Event Monitor - MC recording 09:12:32 CDT CPT-52783 EKG Trac and Interp 16:50:22 CDT CPT-J1030 Depo Medrol 40 mg (Methyl Prednisolone Acetate) 17:05: 54 CDT CPT-J1100 Decadron 4mg (Dexamethasone) 17:05:54 CDT CPT-86918 Abx/Therapy Injection 17:05:54 CDT CPT-J1100 Decadron 4mg (Dexamethasone) 16:55:28 CDT CPT-J1030 Depo Medrol 40 mg (Methyl Prednisolone Acetate) 16:55: 28 CDT CPT-39742 Ankle Complete - Min 3V 15:58:50 CDT CPT-32827 Knee 3V 15:58:50 CDT CPT-33389 Hip comp min 2V 15:58:50 CDT CPT-J2270 Morphine Sulfate 10 mg 14:25:44 VOICE OVER ARTIST CPT-J2550 Phenergan 12.5 mg (Promethazine) 14:25:44 VOICE OVER ARTIST CPT-77899 Abx/Therapy Injection 14:25:44 VOICE OVER ARTIST CPT-J2550 Phenergan 12.5 mg (Promethazine) 14:08:03 VOICE OVER ARTIST CPT-J2270 Morphine Sulfate 10 mg 14:08:03 VOICE OVER ARTIST CPT-51720 Bladder Scan 15:00:38 CDT CPT-TCMM Transitional Care Mgmt-Moderate 09:52:22 CDT CPT-J1030 Depo Medrol 40 mg (Methyl Prednisolone Acetate) 10:55: 18 CDT CPT-J1100 Decadron 4mg (Dexamethasone) 10:55:18 CDT CPT-99296 Abx/Therapy Injection 10:55:18 CDT CPT-J1030 Depo Medrol 40 mg (Methyl Prednisolone Acetate) 10:22: 32 CDT CPT-J1100 Decadron 4mg (Dexamethasone) 10:22:32 CDT CPT-09445 Postop F/U Visit 14:37:13 CDT CPT-76112 Ankle Complete - Min 3V 17:11:58 CDT CPT-43597 Foot comp min 3V 17:11:58 CDT CPT-24379 Bladder Scan 09:56:58 CDT CPT-60150 Postop F/U Visit 09:56:58 CDT CPT-33383 Cystoscopy 09:02:42 CDT CPT-23100 Bladder Scan 09:02:42 CDT CPT-12151 Abd single AP View 16:00:35 CDT CPT-10320 Administration single or combination vaccine inc oral 10 :15:43 CDT CPT-00403 Influenza split virus > age 3 10:15:43 CDT CPT-72859 Nail Avulsion 09:24:57 CDT CPT-OV Office Visit 11:15:41 CDT CPT-37831 Abx/Therapy Injection 10:51:30 CDT CPT-J3301 Kenalog 40 mg (Triamcinolone Acetonide) 10:25:12 CDT CPT-J1100 Decadron 4mg (Dexamethasone) 10:25:12 CDT CPT-58668 Anoscopy diagnostic 10:36:12 CDT CPT-OV Office Visit 15:34:31 CDT CPT-21718 Abx/Therapy Injection 08:21:15 VOICE OVER ARTIST CPT-J1885 Toradol 60 mg (Ketorolac) 10:46:35 VOICE OVER ARTIST CPT-OV Office Visit 19:51:16 VOICE OVER ARTIST CPT-45698 Spec Collection and Handling Fee 14:34:18 VOICE OVER ARTIST CPT-PV Prev. Care Visit 14:19:18 VOICE OVER ARTIST CPT-28103 Postop F/U Visit 14:47:51 VOICE OVER ARTIST CPT-60105 Postop F/U Visit 15:15:14 VOICE OVER ARTIST CPT-68696 Postop F/U Visit 14:41:43 CDT CPT-38598 Postop F/U Visit 15:47:46 CDT CPT-OV Office Visit 15:27:23 CDT CPT-OV Office Visit 17:20:34 CDT CPT-10849 Abx/Therapy Injection 15:05:57 CDT CPT-J1100 Decadron 8mg (Dexamethasone) 14:44:57 CDT CPT-J1040 Depo Medrol 80 mg (Methyl Prednisolone Acetate) 14:44: 57 CDT CPT-JTINJ Joint Injection 10:17:37 CDT CPT-38571 Administration 2+ single or combination vaccines inc oral 13:01:46 VOICE OVER ARTIST CPT-65136 Administration single or combination vaccine inc oral 13 :01:46 VOICE OVER ARTIST CPT-23439 Pneumovax 13:01:46 VOICE OVER ARTIST CPT-18087 Influenza split virus > age 3 13:01:46 VOICE OVER ARTIST CPT-73042 Administration single or combination vaccine inc oral 08 :56:49 CDT CPT-23615 Tdap 08:56:49 CDT
--- OUTSIDE RECORDS SUMMARY | 2017-03-21 19:53 | XMS REPORT | Clinical Summary ---
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 Erum Sykes 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 Myocardial infarction, hx of 412 Active Hoa Otto [facility] Old myocardial infarction Pelvic pain 789.09 Active Yolande Lindsay MD PhD Abdominal pain, other specified site; multiple sites Edema 782.3 Active Yolande Lindsay MD PhD Edema Rash 782.1 Active Yolande Lindsay MD PhD Rash and other nonspecific skin eruption Back pain, lumbar 724.2 Active Gab Padron MD Lumbago Cough 786.2 Active Jillina Tyrel HIDE SHAKER Cough 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 Jillina Frazellilian HIDE SHAKER 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 Anemia 285.9 Active Gab Padron MD Anemia, unspecified Conjunctivitis 372.30 Active Jillina Tyrel HIDE SHAKER Conjunctivitis, unspecified Sinusitis 473.9 Active Jillina Frazell HIDE SHAKER Unspecified sinusitis (chronic) Nonspecific syndrome suggestive of viral illness 079.99 Active Rodrigo Sarah APRN Unspecified viral infection Laryngitis 464.00 Active Jillina Tyrel HIDE SHAKER Acute laryngitis without mention of obstruction Abdominal [...] quadrant Slowing of urinary stream 788.62 Active aGb Padron MD Slowing of urinary stream Interstitial [...] of kidney, except pelvis Poison sami 692.6 Active Allie Paul Contact dermatitis and other eczema due to plants [except food] FOOT PAIN, RIGHT ICD-729.5 Inactive Yolande Lindsay [...] Provider Patient Instruction PREDNISONE 20 MG TAB take 3 tabs daily for 3 days, 2 tabs daily for 3 days, 1 tab daily for 3 days, 1/2 tab daily for 3 days PREDNISONE 36831710968 Active Tisha Lambert APRN Active TRAMADOL HCL 50 MG TABS 1 tab po every 6 hrs prn pain TRAMADOL HCL 05092276429 Active Gab Padron MD Active PREDNISONE 20 MG TAB 2 tabs daily for 3 days, 1 tab daily for 3 days, 1/2 tab daily for 2 days PREDNISONE 33961852714 No Longer Active Gab Padron MD Active ZOFRAN ODT 4 MG TBDP 1 po q6hr PRN Nausea ONDANSETRON 53238469508 Active Gab Padron MD Active IBUPROFEN 600 MG TAB 1 tablet by mouth every 6 hours for 7 days, then 1 tablet every 6 hours as needed. Take with food IBUPROFEN 55581989063 Active Rodrigo Sarah APRN Active BACTRIM DS 800-160 MG TAB 1 tab by mouth twice daily TRIMETHOPRIM-SULFAMETHOXAZOLE 87100740626 No Longer Active Gab Padron MD Active ADVAIR DISKUS 250-50 MCG/DOSE AEPB 1 puff BID FLUTICASONE- SALMETEROL 56306624916 Active Rodrigo Sarah APRN Active LEVOTHYROXINE SODIUM 75 MCG TABS Take 1 tab daily LEVOTHYROXINE SODIUM 51819356544 No Longer Active Mariana Cuadra [facility] Active SYNTHROID 88 MCG ORAL TABS Take one by mouth daily LEVOTHYROXINE SODIUM 19766913297 Active Gab Padron MD Active CHERATUSSIN AC 100-10 MG/5ML SYRP 1 tsp by mouth every 4 hours as needed for cough GUAIFENESIN-CODEINE 77675671732 No Longer Active Gab Padron MD Active POLYTRIM 02367-6.1 UNIT/ML-% SOLN 1 gtt to affected eye q3h x 7 days POLYMYXIN B-TRIMETHOPRIM 96404703386 No Longer Active Gab Padron MD Active FLUTICASONE PROPIONATE 50 MCG/ACT SUSP 1 to 2 sprays each nostril daily 04/21 FLUTICASONE PROPIONATE 63281241143 No Longer Active Gab Padron MD Active TRILEPTAL 600 MG TABS Take one 1 tablet in Am and 1 tablet at night OXCARBAZEPINE 29383907185 Active Gab Padron MD Active CEFDINIR 300 MG CAPS 1 po BID x 10 days CEFDINIR 93898750253 No Longer Active Rowenaina Tyrel GAUTAM Active CEFTIN 500 MG TAB 1 twice a day CEFUROXIME AXETIL 12972548829 No Longer Active Gab Padron MD Active AZITHROMYCIN 250 MG TABS 2 po qd x 1 day, then 1 po qd x 4 days AZITHROMYCIN 33882471376 No Longer Active Rodrigo Sarah APRN Active CLARITIN 10 MG TAB 1 tablet by mouth daily as needed for allergies LORATADINE 15681189526 Active Silvestrellnacho Sarah APRN Active OXYCODONE HCL 5 MG ORAL CAPS 1 TAB PO Q HS OXYCODONE HCL 16326886582 No Longer Active Rodrigo Sarah APRN Active NIASPAN 500 MG ORAL CR-TABS 1 pill nightly x 1 week, then 2 pills nightly x 1 week, then 3 pills nightly x 1 week, then 4 pills nightly NIACIN (ANTIHYPERLIPIDEMIC) 50970003678 No Longer Active Silvestrellnacho Sarah APRN Active NIACIN 500 MG TABS 1 pill by mouth nightly x 1 week, then 2 pills x 1 week, then 3 pills x 1 week, then 4 pills nightly - take after evening meal, with applesauce or an apple NIACIN 96107578328 No Longer Active Yolande Lindsay MD PhD Active FISH OIL 1000 MG CAPS 3 pills daily OMEGA-3 FATTY ACIDS 78150237639 Active Yolande Lindsay MD PhD Active TRIAMCINOLONE ACETONIDE 0.1 % CREA apply bid sparingly to rash TRIAMCINOLONE ACETONIDE 31202954440 Active Yolande Lindsay MD PhD Active FUROSEMIDE 20 MG TAB 1 tablet by mouth daily FUROSEMIDE 46572441535 Active Tisha Lambert APRN Active LISINOPRIL 20 MG ORAL TABS 1 tab by mouth daily LISINOPRIL 66388945988 Active Tisha Lambert APRN Active FUROSEMIDE 20 MG TABS 1 pill by mouth daily, for edema FUROSEMIDE 60378415062 No Longer Active Yolande Lindsay MD PhD Active ATORVASTATIN CALCIUM 10 MG TABS 1 pill by mouth daily, for cholesterol 09/06 ATORVASTATIN CALCIUM 23901076414 Active Gab Padron MD Active CALCIUM 600+D PLUS MINERALS 600-400 MG-UNIT ORAL CHEW 1 tab by mouth daily CALCIUM CARBONATE-VIT D-MIN 01970904305 No Longer Active Yolande Lindsay MD PhD Active CYCLOBENZAPRINE HCL 10 MG TABS 1 tablet by mouth three times daily as needed for muscle spasm/pain CYCLOBENZAPRINE HCL 41065233594 Active Yolande Lindsay MD PhD Active ONDANSETRON 4 MG TBDP 1 q4h PRN nausea ONDANSETRON 65998719203 Active Yolande Lindsay MD PhD Active ADULT ASPIRIN EC LOW STRENGTH 81 MG TBEC Take 1 tablet by mouth daily 2014 ASPIRIN 10785869466 No Longer Active Yolande Lindsay MD PhD Active ZOFRAN ODT 4 MG TBDP 1 pill dissolved by mouth every 4 hours if needed for nausea ONDANSETRON 30280414980 No Longer Active Yolande Lindsay MD PhD Active CEFTIN 500 MG TAB 1 twice a day CEFUROXIME AXETIL 23675899232 No Longer Active Yolande Lindsay MD PhD Active ALBUTEROL SULFATE 0.083 % NEBU SOLN one vial per nebulizer every 4-6 hours as needed ALBUTEROL SULFATE 15536404288 No Longer Active Alexis Ordaz MD Active DOXYCYCLINE HYCLATE 100 MG CAP 1 cap by mouth twice daily DOXYCYCLINE HYCLATE 64145235322 No Longer Active Yolande Lindsay MD PhD Active CYCLOBENZAPRINE HCL 10 MG TABS 1/2 - 1 tab by mouth three times daily if needed for spasms/pain CYCLOBENZAPRINE HCL 63883306351 No Longer Active Yolande Lindsay MD PhD Active AZITHROMYCIN 250 MG TABS 2 pills on day 1, then 1 pill daily x 4 days AZITHROMYCIN 64047007628 No Longer Active Yolande Lindsay MD PhD Active XOPENEX 1.25 MG/3ML NEBU 1 neb every 4 hours if needed for cough/congestion LEVALBUTEROL HCL 86481198713 No Longer Active Yolande Lindsay MD PhD Active DOXYCYCLINE HYCLATE 100 MG TAB 1 tab twice a day for 14 days 2013 DOXYCYCLINE HYCLATE 18621388631 No Longer Active Yolande Lindsay MD PhD Active PREVACID 30 MG CPDR Take 1 tablet by mouth daily-PRN LANSOPRAZOLE 96205386024 No Longer Active Yolande Lindsay MD PhD Active PA VITAMIN D-3 2000 UNIT CAPS 1 CAP PO DAILY CHOLECALCIFEROL 49693717201 No Longer Active Yolande Lindsay MD PhD Active CEFDINIR 300 MG CAPS by mouth twice a day CEFDINIR 93841391705 No Longer Active Gab Padron MD Active TOPAMAX 50 MG TABS 1 PO twice daily TOPIRAMATE 85743099754 Active Yolande Lindsay MD PhD Active AZITHROMYCIN 250 MG TABS 2 po qd x 1 day, then 1 po qd x 4 days AZITHROMYCIN 09313770374 No Longer Active Yolande Lindsay MD PhD Active DICLOFENAC SODIUM 75 MG TBEC 1 tablet by q 12 hours PRN headaches DICLOFENAC SODIUM 71003921745 No Longer Active Yolande Lindsay MD PhD Active FLONASE 50 MCG/ACT SUSP 1 spray each nostril am and hs FLUTICASONE PROPIONATE 02433092954 No Longer Active Todd Callaway MD Active ANUSOL-HC 25 MG SUPPOSITORY 1 rectally twice a day as needed for hemorrhoids HYDROCORTISONE JAYDEN (RECTAL) 81433052109 No Longer Active Yolande Lindsay MD PhD Active ANUSOL-HC 25 MG SUPPOSITORY 1 suppository rectally each evening as needed for anal fissure HYDROCORTISONE JAYDEN (RECTAL) 58208930418 No Longer Active LONNIE Iglesias Active VALIUM 5 MG TAB 1 po 30 minutes prior to your MRI DIAZEPAM 56563128486 No Longer Active LONNIE Iglesias Active METHOCARBAMOL 750 MG TABS 1 PO QID PRN METHOCARBAMOL 12972568341 No Longer Active Daphne Wetzel APRN Active NITROSTAT 0.4 MG SUBL as directed NITROGLYCERIN 32171359389 No Longer Active Rodrigo Sarah APRN Active ROBAXIN-750 750 MG TABS 2 four times a day for 3 days as needed for muscle spasm, then 1 four times a day as needed METHOCARBAMOL 36694398889 No Longer Active Rodrigo Sarah APRN Active HYDROCODONE-ACETAMINOPHEN 5-325 MG TABS 1 q 4-6 hrs prn HYDROCODONE-ACETAMINOPHEN 02733505739 No Longer Active Rodrigo Sarah APRN Active VERAPAMIL HCL CR 180 MG CR-TABS TAKE 1 TAB DAILY VERAPAMIL HCL 43945193886 No Longer Active Yolande Lindsay MD PhD Active BACTRIM DS 800-160 MG TAB 1 tab by mouth twice daily TRIMETHOPRIM-SULFAMETHOXAZOLE 97867365942 No Longer Active Yolande Lindsay MD PhD Active NEXIUM 40 MG PACK 1 by mouth daily ESOMEPRAZOLE MAGNESIUM 27167109140 No Longer Active Des Hines MD Active EPIPEN 2-CHARLETTE 0.3 MG/0.3ML OMARI as need for allergic reaction EPINEPHRINE 99377978681 Active Yolande Lindsay MD PhD Active NEXIUM 40 MG CPDR 1 PO Q D DAY ESOMEPRAZOLE MAGNESIUM 06957006182 No Longer Active Sadia Perry RN Active NEXIUM 40 MG PACK 1 by mouth daily NEXIUM 40 MG PACK ESOMEPRAZOLE MAGNESIUM Inactive VERAPAMIL HCL CR 180 MG CR-TABS TAKE 1 TAB DAILY VERAPAMIL HCL CR 180 MG CR-TABS VERAPAMIL HCL Inactive HYDROCODONE-ACETAMINOPHEN 5-325 MG TABS 1 q 4-6 hrs prn HYDROCODONE-ACETAMINOPHEN 5-325 MG TABS 057749 HYDROCODONE-ACETAMINOPHEN Inactive ROBAXIN-750 750 MG TABS 2 four times a day for 3 days as needed for muscle spasm, then 1 four times a day as needed ROBAXIN-750 750 MG TABS 292807 METHOCARBAMOL Inactive NITROSTAT 0.4 MG SUBL as directed NITROSTAT 0.4 MG SUBL 990133 NITROGLYCERIN Inactive METHOCARBAMOL 750 MG TABS 1 PO QID PRN METHOCARBAMOL 750 MG TABS 345714 METHOCARBAMOL Inactive VALIUM 5 MG TAB 1 po 30 minutes prior to your MRI VALIUM 5 MG TAB 232842 DIAZEPAM Inactive ANUSOL-HC 25 MG SUPPOSITORY 1 suppository rectally each evening as needed for anal fissure ANUSOL-HC 25 MG SUPPOSITORY 2846948 HYDROCORTISONE JAYDEN (RECTAL) Inactive ANUSOL-HC 25 MG SUPPOSITORY 1 rectally twice a day as needed for hemorrhoids ANUSOL-HC 25 MG SUPPOSITORY 5577942 HYDROCORTISONE JAYDEN (RECTAL) Inactive FLONASE 50 MCG/ACT SUSP 1 spray each nostril am and hs FLONASE 50 MCG/ACT SUSP 0565433 FLUTICASONE PROPIONATE Inactive DICLOFENAC SODIUM 75 MG TBEC 1 tablet by q 12 hours PRN headaches DICLOFENAC SODIUM 75 MG TBEC 281265 DICLOFENAC SODIUM Inactive PA VITAMIN D-3 2000 UNIT CAPS 1 CAP PO DAILY PA VITAMIN D-3 2000 UNIT CAPS CHOLECALCIFEROL Inactive PREVACID 30 MG CPDR Take 1 tablet by mouth daily-PRN PREVACID 30 MG CPDR 771159 LANSOPRAZOLE Inactive DOXYCYCLINE HYCLATE 100 MG TAB 1 tab twice a day for 14 days 2013 DOXYCYCLINE HYCLATE 100 MG TAB 6236543 DOXYCYCLINE HYCLATE Inactive XOPENEX 1.25 MG/3ML NEBU 1 neb every 4 hours if needed for cough/congestion XOPENEX 1.25 MG/3ML NEBU 547980 LEVALBUTEROL HCL Inactive CYCLOBENZAPRINE HCL 10 MG TABS 1/2 - 1 tab by mouth three times daily if needed for spasms/pain CYCLOBENZAPRINE HCL 10 MG TABS 024430 CYCLOBENZAPRINE HCL Inactive ALBUTEROL SULFATE 0.083 % NEBU SOLN one vial per nebulizer every 4-6 hours as needed ALBUTEROL SULFATE 0.083 % NEBU SOLN 087781 ALBUTEROL SULFATE Inactive CEFTIN 500 MG TAB 1 twice a day CEFTIN 500 MG TAB 187424 CEFUROXIME AXETIL Inactive ZOFRAN ODT 4 MG TBDP 1 pill dissolved by mouth every 4 hours if needed for nausea ZOFRAN ODT 4 MG TBDP 045494 ONDANSETRON Inactive ADULT ASPIRIN EC LOW STRENGTH 81 MG TBEC Take 1 tablet by mouth daily 2014 ADULT ASPIRIN EC LOW STRENGTH 81 MG TBEC 076546 ASPIRIN Inactive CALCIUM 600+D PLUS MINERALS 600-400 [...] or an apple NIACIN 500 MG TABS 553978 NIACIN Inactive NIASPAN 500 MG ORAL CR-TABS 1 pill nightly x 1 week, then 2 pills nightly x 1 week, then 3 pills nightly x 1 week, then 4 pills nightly NIASPAN 500 MG ORAL CR-TABS NIACIN (ANTIHYPERLIPIDEMIC) Inactive OXYCODONE HCL 5 MG ORAL CAPS 1 TAB PO Q HS OXYCODONE HCL 5 MG ORAL CAPS 1052267 OXYCODONE HCL Inactive FLUTICASONE PROPIONATE 50 MCG/ACT SUSP 1 to 2 sprays each nostril daily 04/21 FLUTICASONE PROPIONATE 50 MCG/ACT SUSP 2296276 FLUTICASONE PROPIONATE Inactive POLYTRIM 53709-1.1 UNIT/ML-% SOLN 1 gtt to affected eye q3h x 7 days POLYTRIM 83077-7.1 UNIT/ML-% SOLN 510476 POLYMYXIN B- TRIMETHOPRIM Inactive CHERATUSSIN AC 100-10 MG/5ML SYRP 1 tsp by mouth every 4 hours as needed for cough CHERATUSSIN AC 100-10 MG/5ML SYRP 314678 GUAIFENESIN-CODEINE Inactive LEVOTHYROXINE SODIUM 75 MCG TABS Take 1 tab daily LEVOTHYROXINE SODIUM 75 MCG TABS 474739 LEVOTHYROXINE SODIUM Inactive BACTRIM DS 800-160 MG TAB 1 tab by mouth twice daily BACTRIM DS 800-160 MG TAB 887781 TRIMETHOPRIM-SULFAMETHOXAZOLE Inactive AZITHROMYCIN 250 MG TABS 2 po qd x 1 day, then 1 po qd x 4 days AZITHROMYCIN 250 MG TABS 0925052 AZITHROMYCIN Inactive CEFDINIR 300 MG CAPS by mouth twice a day CEFDINIR 300 MG CAPS 636410 CEFDINIR Inactive AZITHROMYCIN 250 MG TABS 2 pills on day 1, then 1 pill daily x 4 days AZITHROMYCIN 250 MG TABS 1229115 AZITHROMYCIN Inactive DOXYCYCLINE HYCLATE 100 MG CAP 1 cap by mouth twice daily DOXYCYCLINE HYCLATE 100 MG CAP 5606334 DOXYCYCLINE HYCLATE Inactive FUROSEMIDE 20 MG TABS 1 pill by mouth daily, for edema FUROSEMIDE 20 MG TABS 248918 FUROSEMIDE Inactive AZITHROMYCIN 250 MG TABS 2 po qd x 1 day, then 1 po qd x 4 days AZITHROMYCIN 250 MG TABS 1882998 AZITHROMYCIN Inactive CEFTIN 500 MG TAB 1 twice a day CEFTIN 500 MG TAB 432909 CEFUROXIME AXETIL Inactive CEFDINIR 300 MG CAPS 1 po BID x 10 days CEFDINIR 300 MG CAPS 036371 CEFDINIR Inactive BACTRIM DS 800-160 MG TAB 1 tab by mouth twice daily BACTRIM DS 800-160 MG TAB 702945 TRIMETHOPRIM-SULFAMETHOXAZOLE Inactive PREDNISONE 20 MG TAB 2 tabs daily for 3 days, 1 tab daily for 3 days, 1/2 tab daily for 2 days PREDNISONE 20 MG TAB 907201 PREDNISONE Inactive Immunizations Vaccine Administration Date Value Standard Description Seasonal influenza vaccine, injectable, containing preservative, for > 3 years old (Afluria, FluLaval, Fluzone, Fluvirin, Fluarix, Agriflu(>=18 yo)) Fluzone (>3 yrs.) [CXT952] Influenza, seasonal, injectable influenza immunization (Flu Vax) has been administered Influenza - Unspecified Formulation [CVX88] influenza virus vaccine, unspecified formulation Seasonal influenza vaccine, injectable, containing preservative, for > 3 years old (Afluria, FluLaval, Fluzone, Fluvirin, Fluarix, Agriflu(>=18 yo)) Fluzone (>3 yrs.) [PRU631] Influenza, seasonal, injectable pneumococcal immunization administered Pneumovax 23 [CVX33] pneumococcal polysaccharide vaccine, 23 valent dT (Diphtheria and Tetanus) booster given given Td(adult) unspecified formulation Boostrix (Tetanus toxoid, reduced diphtheria toxoid and acellular pertussis vaccine, adsorbed), booster Boostrix [QLT626] tetanus toxoid, reduced diphtheria toxoid, and acellular [...] Panel - Chemistry sodium, serum 142 mmol/L 420-802 1753/06/30 potassium, serum 4.4 mmol/L 3.5-5.2 chloride, serum 108 mmol/L 98-107 carbon dioxide, venous blood 25.1 mmol/L 21.0-32.0 blood glucose 82 mg/dL 65-110 calcium, serum 9.1 mg/dL 8.5-10.1 urea nitrogen, blood 18 mg/dL 7-18 creatinine, serum 1.31 mg/dL 0.55-1.30 Lab Report: Lipid Panel, HEPATIC PANEL - Chemistry cholesterol, serum 166 mg/dL 187-600 4831/12/06 triglyceride, serum, fasting 86 mg/dL 30-200 HDL [...] dipstick Negative Negative sodium, serum 142 mmol/L 282-748 0377/07/18 carbon dioxide, venous blood 27.8 mmol/L 21.0-32.0 potassium, serum 4.1 mmol/L 3.5-5.2 chloride, serum 107 mmol/L 98-107 blood glucose 91 mg/dL 65-110 urea nitrogen, blood 19 mg/dL 7-18 creatinine, serum 1.28 mg/dL 0.55-1.30 alanine aminotransferase (SGPT), serum 31 U/L - aspartate aminotransferase (SGOT), serum 25 U/L 15-37 [...] pH, urine, semiquantitative 6.5 5.0-8.5 Office Visit: Follow up hydrodilation - Chemistry protein, total urine random negative mg/dL RBC, urine, dipstick negative Office Visit: Follow up hydrodilation - Urinalysis ketones, urine, by test strip negative bilirubin, urine negative glucose, urine, semiquantitative negative pH, urine, semiquantitative 5 specific gravity, urine 1.005 urinalysis, routine Clean Catch culture status No urine color yellow appearance, urine clear leukocyte [...] negative Encounters Code Encounter Date Provider Facility CPT-48981 Level 3 Est. Patient 15:20:50 CDT Jared Og MD [facility] CPT-81570 Level 3 Est. Patient 17:43:55 CONTENT CURATOR Gab Padron MD [facility] CPT-03579 Level 3 Est. Patient 17:07:49 CONTENT CURATOR Jared Og MD [facility] CPT-11394 Level 4 Est. Patient 19:55:18 CONTENT CURATOR Jared Og MD [facility] CPT-14580 Level 3 Est. Patient 20:13:34 CONTENT CURATOR Jared Og MD [facility] CPT-73652 Level 4 Est. Patient 16:31:27 CDT Gab Padron MD [facility] CPT-34973 Level 2 Est. Patient 12:23:38 CDT Jared Og MD [facility] CPT-82821 Level 3 Est. Patient 11:01:51 CDT Gab Padron MD [facility] CPT-78601 Level 3 Est. Patient 15:27:02 CDT Jared Og MD [facility] CPT-38030 Level 4 Est. Patient 09:25:27 CDT Gab Padron MD [facility]-39474 Level 3 Est. Patient 10:29:41 CDT Rodrigo Sarah [facility] CPT-85925 Level 4 Est. Patient 17:51:05 CDT Gab Padron MD [facility] CPT-07389 Level 3 Est. Patient 14:18:08 CDT Gab Padron MD [facility] CPT-40779 Level 4 Est. Patient 10:18:54 CDT Gab Padron MD [facility] CPT-91949 Level 3 Est. Patient 11:30:07 CDT Rodrigo Sarah [facility] CPT-17100 Level 4 Est. Patient 21:02:30 CONTENT CURATOR Gab Padron MD [facility] CPT-08146 Level 3 Est. Patient 11:02:19 CONTENT CURATOR Gab Padron MD [facility] CPT-69583 Level 4 Est. Patient 22:24:31 CONTENT CURATOR Gab Padron MD [facility] CPT-98095 Level 3 Est. Patient 18:33:46 CONTENT CURATOR Gab Padron MD [facility] CPT-05966 Level 3 Est. Patient 16:19:11 CDT Yolande Lindsay MD [facility] CPT-42417 Level 3 Est. Patient 18:59:14 CDT Yolande Lindsay MD [facility]-48738 Level 4 Est. Patient 21:29:26 CDT Yolande Lindsay MD [facility]-00258 Level 3 Est. Patient 07:37:45 CDT Yolande Lindsay MD [facility]-07244 Level 3 Est. Patient 17:03:46 CDT Yolande Lindsay MD [facility]-86943 Level 4 Est. Patient 20:02:13 CONTENT CURATOR Yolande Lindsay MD [facility]-69199 Level 3 Est. Patient 16:02:07 CONTENT CURATOR Alexis Ordaz MD [facility]-46308 Level 3 Est. Patient 12:41:24 CONTENT CURATOR Yolande Lindsay MD [facility]-70333 Level 3 Est. Patient 15:41:20 CONTENT CURATOR Yolande Lindsay MD [facility]-45843 Level 3 Est. Patient 13:20:02 CONTENT CURATOR Yolande Lindsay MD [facility]-71906 Level 3 Est. Patient 15:00:38 CDT Jared Og MD [facility]-80247 Level 3 Est. Patient 10:22:32 CDT Yolande Lindsay MD [facility] CPT-86004 Level 3 Est. Patient 17:12:58 CDT Yolande Lindsay MD [facility]-09706 Level 4 Est. Patient 13:30:58 CDT Yolande Lindsay MD [facility] CPT-73885 Level 4 New Patient 09:02:42 CDT Jared Og MD [facility]-59569 Level 3 Est. Patient 08:19:07 CDT Yolande Lindsay MD [facility]-98299 Level 3 Est. Patient 12:00:13 CONTENT CURATOR Gab Padron MD [facility]-09007 Level 3 Est. Patient 16:15:23 CONTENT CURATOR Yolande Lindsay MD [facility]87188 Level 2 Est. Patient 19:47:15 CDT Yolande Lindsay MD [facility]67671 Level 3 Est. Patient 21:38:31 CDT Yolande Lindsay MD [facility]37301 Level 3 Est. Patient 10:25:12 CDT Adiel PERAZA [facility]-82060 Level 4 Est. Patient 10:51:58 CDT Yolande Lindsay MD [facility]-52080 Level 3 Est. Patient 14:04:55 CONTENT CURATOR Rodrigo Sarah [facility]-46811 Level 3 Est. Patient 10:46:35 CONTENT CURATOR Rodrigo Sarah [facility]-45866 Level 3 Est. Patient 14:24:37 CONTENT CURATOR Yolande Lindsay MD [facility]-87865 Level 3 Est. Patient 17:41:58 CONTENT CURATOR Yolande Lindsay MD [facility]80850 Level 2 Est. Patient 22:01:41 CONTENT CURATOR Rodrigo Sarah [facility]-04626 Level 2 Est. Patient 22:01:11 CONTENT CURATOR Rodrigo Sarah [facility]-21511 Level 3 Est. Patient 10:12:29 CONTENT CURATOR Rodrigo Sarah [facility]-25816 Level 3 Est. Patient 11:05:44 CDT Alexis Ordaz MD [facility] CPT-48518 Level 3 Est. Patient 14:57:20 CDT Yolande Lindsay MD [facility] CPT-24935 Level 3 Est. Patient 14:40:57 CDT Yolande Lindsay MD [facility] CPT-23754 Level 3 Est. Patient 20:55:40 CDT Yolande Lindsay MD [facility] CPT-14475 Level 3 Est. Patient 12:42:38 CONTENT CURATOR Yolande Lindsay MD [facility] CPT-63009 Level 3 Est. Patient 11:54:49 CONTENT CURATOR Des Hines MD [facility] CPT-53053 Level 3 Est. Patient 17:06:38 CDT Dewayne PERAZA [facility] Procedures Code Procedure Name Date Entry Date Standard Description CPT-J2930 Solu Medrol 125 mg (Methyl Prednisolone Sodium Succinate) 13:19:02 CDT CPT-16200 Abx/Therapy Injection 13:19:02 CDT CPT-J2930 Solu Medrol 125 mg (Methyl Prednisolone Sodium Succinate) 13:05:03 CDT CPT-81079 Hip, complete, 2-3 views - XRAY USE ONLY 17:19:04 CONTENT CURATOR CPT-52742 Venipuncture Draw Fee 08:37:59 CONTENT CURATOR CPT-21035 Liver Profile - LAB USE ONLY 08:37:59 CONTENT CURATOR CPT-27235 Lipid - LAB USE ONLY 08:37:58 CONTENT CURATOR CPT-29355 First Vx - Ix admin via ID IM or jet injects without counseling by physician 11:52:31 CDT CPT-44898 Fluzone Preservative Free Intramuscular Suspension 11:52 :31 CDT CPT-79487 Foot, left, comp min 3V - XRAY USE ONLY 09:24:54 CDT CPT-45106 Abd single AP View - XRAY USE ONLY 11:16:17 CDT CPT-57412 T spine AP/ Lat - XRAY USE ONLY 09:34:21 CDT CPT-15330 Chest 2V Frontal and Lat - XRAY USE ONLY 10:48:51 CDT CPT-61911 LS spine comp w obliq 13:28:00 CONTENT CURATOR CPT-J1040 Depo Medrol 80 mg (Methyl Prednisolone Acetate) 10:51: 28 CONTENT CURATOR CPT-J1100 Decadron 8mg (Dexamethasone) 10:51:28 CONTENT CURATOR CPT-55446 Abx/Therapy Injection 10:51:28 CONTENT CURATOR CPT-J1100 Decadron 8mg (Dexamethasone) 21:02:30 CONTENT CURATOR CPT-J1040 Depo Medrol 80 mg (Methyl Prednisolone Acetate) 21:02: 30 CONTENT CURATOR [id number] Event Monitor - MC Transmission 09:12:32 CDT 08/06 [id number] Event Monitor - MC review and interp 09:12:32 CDT [id number] Event Monitor - MC recording 09:12:32 CDT CPT-61660 EKG Trac and Interp 16:50:22 CDT CPT-J1030 Depo Medrol 40 mg (Methyl Prednisolone Acetate) 17:05: 54 CDT CPT-J1100 Decadron 4mg (Dexamethasone) 17:05:54 CDT CPT-85405 Abx/Therapy Injection 17:05:54 CDT CPT-J1100 Decadron 4mg (Dexamethasone) 16:55:28 CDT CPT-J1030 Depo Medrol 40 mg (Methyl Prednisolone Acetate) 16:55: 28 CDT CPT-69774 Ankle Complete - Min 3V 15:58:50 CDT CPT-38283 Knee 3V 15:58:50 CDT CPT-58964 Hip comp min 2V 15:58:50 CDT CPT-J2270 Morphine Sulfate 10 mg 14:25:44 CONTENT CURATOR CPT-J2550 Phenergan 12.5 mg (Promethazine) 14:25:44 CONTENT CURATOR CPT-09784 Abx/Therapy Injection 14:25:44 CONTENT CURATOR CPT-J2550 Phenergan 12.5 mg (Promethazine) 14:08:03 CONTENT CURATOR CPT-J2270 Morphine Sulfate 10 mg 14:08:03 CONTENT CURATOR CPT-54580 Bladder Scan 15:00:38 CDT CPT-TCMM Transitional Care Mgmt-Moderate 09:52:22 CDT CPT-J1030 Depo Medrol 40 mg (Methyl Prednisolone Acetate) 10:55: 18 CDT CPT-J1100 Decadron 4mg (Dexamethasone) 10:55:18 CDT CPT-84781 Abx/Therapy Injection 10:55:18 CDT CPT-J1030 Depo Medrol 40 mg (Methyl Prednisolone Acetate) 10:22: 32 CDT CPT-J1100 Decadron 4mg (Dexamethasone) 10:22:32 CDT CPT-74355 Postop F/U Visit 14:37:13 CDT CPT-93226 Ankle Complete - Min 3V 17:11:58 CDT CPT-68288 Foot comp min 3V 17:11:58 CDT CPT-72437 Bladder Scan 09:56:58 CDT CPT-50534 Postop F/U Visit 09:56:58 CDT CPT-94456 Cystoscopy 09:02:42 CDT CPT-73927 Bladder Scan 09:02:42 CDT CPT-78031 Abd single AP View 16:00:35 CDT CPT-62465 Administration single or combination vaccine inc oral 10 :15:43 CDT CPT-56094 Influenza split virus > age 3 10:15:43 CDT CPT-19785 Nail Avulsion 09:24:57 CDT CPT-OV Office Visit 11:15:41 CDT CPT-10721 Abx/Therapy Injection 10:51:30 CDT CPT-J3301 Kenalog 40 mg (Triamcinolone Acetonide) 10:25:12 CDT CPT-J1100 Decadron 4mg (Dexamethasone) 10:25:12 CDT CPT-88769 Anoscopy diagnostic 10:36:12 CDT CPT-OV Office Visit 15:34:31 CDT CPT-84967 Abx/Therapy Injection 08:21:15 CONTENT CURATOR CPT-J1885 Toradol 60 mg (Ketorolac) 10:46:35 CONTENT CURATOR CPT-OV Office Visit 19:51:16 CONTENT CURATOR CPT-53949 Spec Collection and Handling Fee 14:34:18 CONTENT CURATOR CPT-PV Prev. Care Visit 14:19:18 CONTENT CURATOR CPT-40427 Postop F/U Visit 14:47:51 CONTENT CURATOR CPT-09477 Postop F/U Visit 15:15:14 CONTENT CURATOR CPT-59744 Postop F/U Visit 14:41:43 CDT CPT-85402 Postop F/U Visit 15:47:46 CDT CPT-OV Office Visit 15:27:23 CDT CPT-OV Office Visit 17:20:34 CDT CPT-86240 Abx/Therapy Injection 15:05:57 CDT CPT-J1100 Decadron 8mg (Dexamethasone) 14:44:57 CDT CPT-J1040 Depo Medrol 80 mg (Methyl Prednisolone Acetate) 14:44: 57 CDT CPT-JTINJ Joint Injection 10:17:37 CDT CPT-13157 Administration 2+ single or combination vaccines inc oral 13:01:46 CONTENT CURATOR CPT-75481 Administration single or combination vaccine inc oral 13 :01:46 CONTENT CURATOR CPT-47022 Pneumovax 13:01:46 CONTENT CURATOR CPT-61647 Influenza split virus > age 3 13:01:46 CONTENT CURATOR CPT-10131 Administration single or combination vaccine inc oral 08 :56:49 CDT CPT-87672 Tdap 08:56:49 CDT
--- OUTSIDE RECORDS SUMMARY | 2017-03-21 19:55 | XMS REPORT | Clinical Summary ---
Author Author Admin, MARGRET Organization [employer] Address Unknown Phone Unavailable Allergies, Adverse Reactions, Alerts Allergy Name Reaction Description Start Date Severity Status Provider VALENTIN Critical Active Rodrigo Montemayorl KNIFE GLAZER CHLORHEXIDINE GLUCONATE tongue and gums swollen Critical Active Hoa Kabaford RMA NORFLEX Rash Critical Active Rowenaina Farshadzell KNIFE GLAZER TRAZODONE HCL sees things Critical Active Dewayne [...] screening mammogram KNEE PAIN 719.46 Resolved Yolande Lindasy MD PhD Pain in joint involving lower [...] Active Hoa Otto [facility] Old myocardial infarction Pelvic pain 789.09 Resolved [...] Gab Padron MD Unspecified disorder of esophagus Dysphagia pharyngoesophageal phase Active Todd Callaway MD Dysphagia, pharyngoesophageal phase Abscess, knee, right 682.6 Active Tisha Lambert APRN Cellulitis and abscess of leg, except foot Benign positional vertigo 386.11 Active Gab Padron MD Benign paroxysmal positional vertigo Insect bite 919.4 Active Tisha Lambert APRN Insect bite, nonvenomous, of other, multiple, and unspecified sites, without mention of infection FOOT PAIN, RIGHT ICD-729.5 Inactive Yolande Lindsay [...] Inactive Gab Padron MD Poison sami ICD-692.6 Inactive Gab Padron MD Medication List Medication Instructions Start Date Stop Date Generic Name NDC Status Provider Patient Instruction TRIAMCINOLONE ACETONIDE 0.1 % CREA Apply to affected area 3 times daily for up to 2 weeks TRIAMCINOLONE ACETONIDE 12817639947 Active Tisha Lambert APRN Active LISINOPRIL 40 MG TABS 1 tablet by mouth daily LISINOPRIL 63425296336 Active Tisha Lambert APRN Active IBUPROFEN 600 MG TAB 1 tablet by mouth every 6 hours for 7 days, then 1 tablet every 6 hours as needed. Take with food IBUPROFEN 79797695265 No Longer Active Tisha Lambert APRN Active PREDNISONE 20 MG TAB 1 tab twice daily for 3 day, then one daily for three days PREDNISONE 00455670224 No Longer Active Tisha Lambert APRN Active TRIAMCINOLONE ACETONIDE 0.1 % CREA apply bid sparingly to rash TRIAMCINOLONE ACETONIDE 76000079858 No Longer Active Gab Padron MD Active TRAMADOL HCL 50 MG TABS 1 tab po every 6 hrs prn pain TRAMADOL HCL 76767155453 No Longer Active Gab Padron MD Active BACTRIM DS 800-160 MG TAB 1 tab by mouth twice daily TRIMETHOPRIM-SULFAMETHOXAZOLE 05497017188 No Longer Active Tisha Lambert APRN Active ADVAIR DISKUS 250-50 MCG/DOSE AEPB 1 puff BID FLUTICASONE-SALMETEROL 21082261640 No Longer Active Todd Callaway MD Active ONDANSETRON 4 MG TBDP 1 q4h PRN nausea ONDANSETRON 52111816320 No Longer Active LONNIE Iglesias Active FISH OIL 1000 MG CAPS 3 pills daily OMEGA-3 FATTY ACIDS 83602508081 No Longer Active LONNIE Iglesias Active CETIRIZINE HCL 10 MG ORAL TABS 1 po qd PRN Allergies CETIRIZINE HCL 85680021377 Active Gab Padron MD Active CLARITIN 10 MG TAB 1 tablet by mouth daily as needed for allergies LORATADINE 08515354460 No Longer Active Gab Padron MD Active PREDNISONE 20 MG TAB take 3 tabs daily for 3 days, 2 tabs daily for 3 days, 1 tab daily for 3 days, 1/2 tab daily for 3 days PREDNISONE 34205887325 No Longer Active Tisha Lambert APRN Active PREDNISONE 20 MG TAB 2 tabs daily for 3 days, 1 tab daily for 3 days, 1/2 tab daily for 2 days PREDNISONE 51121466405 No Longer Active Gab Padron MD Active ZOFRAN ODT 4 MG TBDP 1 po q6hr PRN Nausea ONDANSETRON 07593916757 Active Gab Padron MD Active BACTRIM DS 800-160 MG TAB 1 tab by mouth twice daily TRIMETHOPRIM-SULFAMETHOXAZOLE 01936667240 No Longer Active Gab Padron MD Active LEVOTHYROXINE SODIUM 75 MCG TABS Take 1 tab daily LEVOTHYROXINE SODIUM 50556470479 No Longer Active Mariana FLEMING Active SYNTHROID 88 MCG ORAL TABS Take one by mouth daily LEVOTHYROXINE SODIUM 76174590022 Active Tisha Lambert APRN Active CHERATUSSIN AC 100-10 MG/5ML SYRP 1 tsp by mouth every 4 hours as needed for cough GUAIFENESIN-CODEINE 69679641734 No Longer Active Gab Padron MD Active POLYTRIM 29541-4.1 UNIT/ML-% SOLN 1 gtt to affected eye q3h x 7 days POLYMYXIN B-TRIMETHOPRIM 88449302714 No Longer Active Gab Padron MD Active FLUTICASONE PROPIONATE 50 MCG/ACT SUSP 1 to 2 sprays each nostril daily 04/21 FLUTICASONE PROPIONATE 77707717817 No Longer Active Gab Padron MD Active TRILEPTAL 600 MG TABS Take one 1 tablet in Am and 1 tablet at night OXCARBAZEPINE 60592154993 Active Gab Padron MD Active CEFDINIR 300 MG CAPS 1 po BID x 10 days CEFDINIR 76202414593 No Longer Active Rowenaina Tyrel GAUTAM Active CEFTIN 500 MG TAB 1 twice a day CEFUROXIME AXETIL 06841255678 No Longer Active Gab Padron MD Active AZITHROMYCIN 250 MG TABS 2 po qd x 1 day, then 1 po qd x 4 days AZITHROMYCIN 52881073116 No Longer Active Silvestrellnacho Sarah APRN Active OXYCODONE HCL 5 MG ORAL CAPS 1 TAB PO Q HS OXYCODONE HCL 23102258808 No Longer Active Jillina Frahossein GAUTAM Active NIASPAN 500 MG ORAL CR-TABS 1 pill nightly x 1 week, then 2 pills nightly x 1 week, then 3 pills nightly x 1 week, then 4 pills nightly NIACIN (ANTIHYPERLIPIDEMIC) 62190354611 No Longer Active Silvestrellina Tyrel GAUTAM Active NIACIN 500 MG TABS 1 pill by mouth nightly x 1 week, then 2 pills x 1 week, then 3 pills x 1 week, then 4 pills nightly - take after evening meal, with applesauce or an apple NIACIN 12624301724 No Longer Active Yolande Lindsay MD PhD Active FUROSEMIDE 20 MG TAB 1 tablet by mouth daily FUROSEMIDE 87043142977 Active Gab Padron MD Active FUROSEMIDE 20 MG TABS 1 pill by mouth daily, for edema FUROSEMIDE 78490736035 No Longer Active Yolande Lindsay MD PhD Active ATORVASTATIN CALCIUM 10 MG TABS 1 pill by mouth daily, for cholesterol 09/06 ATORVASTATIN CALCIUM 05080762850 Active Gab Padron MD Active CALCIUM 600+D PLUS MINERALS 600-400 MG-UNIT ORAL CHEW 1 tab by mouth daily CALCIUM CARBONATE-VIT D-MIN 51576857766 No Longer Active Yolande Lindsay MD PhD Active CYCLOBENZAPRINE HCL 10 MG TABS 1 tablet by mouth three times daily as needed for muscle spasm/pain CYCLOBENZAPRINE HCL 46690341615 Active Yolande Lindsay MD PhD Active ADULT ASPIRIN EC LOW STRENGTH 81 MG TBEC Take 1 tablet by mouth daily 2014 ASPIRIN 15087191763 No Longer Active Yolande Lindsay MD PhD Active ZOFRAN ODT 4 MG TBDP 1 pill dissolved by mouth every 4 hours if needed for nausea ONDANSETRON 66728369955 No Longer Active Yolande Lindsay MD PhD Active CEFTIN 500 MG TAB 1 twice a day CEFUROXIME AXETIL 37392548709 No Longer Active Yolande Lindsay MD PhD Active ALBUTEROL SULFATE 0.083 % NEBU SOLN one vial per nebulizer every 4-6 hours as needed ALBUTEROL SULFATE 34844967358 No Longer Active Alexis Ordaz MD Active DOXYCYCLINE HYCLATE 100 MG CAP 1 cap by mouth twice daily DOXYCYCLINE HYCLATE 41501535024 No Longer Active Yolande Lindsay MD PhD Active CYCLOBENZAPRINE HCL 10 MG TABS 1/2 - 1 tab by mouth three times daily if needed for spasms/pain CYCLOBENZAPRINE HCL 95148407510 No Longer Active Yolande Lindsay MD PhD Active AZITHROMYCIN 250 MG TABS 2 pills on day 1, then 1 pill daily x 4 days AZITHROMYCIN 26111678260 No Longer Active Yolande Lindsay MD PhD Active XOPENEX 1.25 MG/3ML NEBU 1 neb every 4 hours if needed for cough/congestion LEVALBUTEROL HCL 38132016192 No Longer Active Yolande Lindsay MD PhD Active DOXYCYCLINE HYCLATE 100 MG TAB 1 tab twice a day for 14 days 2013 DOXYCYCLINE HYCLATE 16859961363 No Longer Active Yolande Lindsay MD PhD Active PREVACID 30 MG CPDR Take 1 tablet by mouth daily-PRN LANSOPRAZOLE 03502163218 No Longer Active Yolande Lindsay MD PhD Active PA VITAMIN D-3 2000 UNIT CAPS 1 CAP PO DAILY CHOLECALCIFEROL 94254636128 No Longer Active Yolande Lindsay MD PhD Active CEFDINIR 300 MG CAPS by mouth twice a day CEFDINIR 81276474198 No Longer Active Gab Padron MD Active TOPAMAX 50 MG TABS 1 PO twice daily TOPIRAMATE 73547969423 Active Yolande Lindsay MD PhD Active AZITHROMYCIN 250 MG TABS 2 po qd x 1 day, then 1 po qd x 4 days AZITHROMYCIN 52296608999 No Longer Active Yolande Lindsay MD PhD Active DICLOFENAC SODIUM 75 MG TBEC 1 tablet by q 12 hours PRN headaches DICLOFENAC SODIUM 04795286009 No Longer Active Yolande Lindsay MD PhD Active FLONASE 50 MCG/ACT SUSP 1 spray each nostril am and hs FLUTICASONE PROPIONATE 66683412025 No Longer Active Todd Callaway MD Active ANUSOL-HC 25 MG SUPPOSITORY 1 rectally twice a day as needed for hemorrhoids HYDROCORTISONE JAYDEN (RECTAL) 84031605373 No Longer Active Yolande Lindsay MD PhD Active ANUSOL-HC 25 MG SUPPOSITORY 1 suppository rectally each evening as needed for anal fissure HYDROCORTISONE JAYDEN (RECTAL) 09167794073 No Longer Active LONNIE Iglesias Active VALIUM 5 MG TAB 1 po 30 minutes prior to your MRI DIAZEPAM 92172599232 No Longer Active BozenaEDELMIRA CollazoFeliciano Active METHOCARBAMOL 750 MG TABS 1 PO QID PRN METHOCARBAMOL 93196480348 No Longer Active Daphne Wetzel K[employer]IFE GLAZER Active NITROSTAT 0.4 MG SUBL as directed NITROGLYCERIN 76169977620 No Longer Active Silvestrellnacho Sarah KNIFE GLAZER Active ROBAXIN-750 750 MG TABS 2 four times a day for 3 days as needed for muscle spasm, then 1 four times a day as needed METHOCARBAMOL 03420404198 No Longer Active Silvestrellnacho Sarah APRN Active HYDROCODONE-ACETAMINOPHEN 5-325 MG TABS 1 q 4-6 hrs prn HYDROCODONE-ACETAMINOPHEN 75315633165 No Longer Active Silvestrellina Tyrel ZAPATAN Active VERAPAMIL HCL CR 180 MG CR-TABS TAKE 1 TAB DAILY VERAPAMIL HCL 53224797044 No Longer Active Yolande Lindsay MD PhD Active BACTRIM DS 800-160 MG TAB 1 tab by mouth twice daily TRIMETHOPRIM-SULFAMETHOXAZOLE 86082518811 No Longer Active Yolande Lindsay MD PhD Active NEXIUM 40 MG PACK 1 by mouth daily ESOMEPRAZOLE MAGNESIUM 53596021778 No Longer Active Des Hines MD Active EPIPEN 2-CHARLETTE 0.3 MG/0.3ML OMARI as need for allergic reaction EPINEPHRINE 29881217033 Active Yolande Lindsay MD PhD Active NEXIUM 40 MG CPDR 1 PO Q D DAY ESOMEPRAZOLE MAGNESIUM 38357907971 No Longer Active Sadia Perry RN Active NEXIUM 40 MG PACK 1 by mouth daily NEXIUM 40 MG PACK ESOMEPRAZOLE MAGNESIUM Inactive VERAPAMIL HCL CR 180 MG CR-TABS TAKE 1 TAB DAILY VERAPAMIL HCL CR 180 MG CR-TABS VERAPAMIL HCL Inactive HYDROCODONE-ACETAMINOPHEN 5-325 MG TABS 1 q 4-6 hrs prn HYDROCODONE-ACETAMINOPHEN 5-325 MG TABS 664408 HYDROCODONE-ACETAMINOPHEN Inactive ROBAXIN-750 750 MG TABS 2 four times a day for 3 days as needed for muscle spasm, then 1 four times a day as needed ROBAXIN-750 750 MG TABS 574237 METHOCARBAMOL Inactive NITROSTAT 0.4 MG SUBL as directed NITROSTAT 0.4 MG SUBL 121651 NITROGLYCERIN Inactive METHOCARBAMOL 750 MG TABS 1 PO QID PRN METHOCARBAMOL 750 MG TABS 715609 METHOCARBAMOL Inactive VALIUM 5 MG TAB 1 po 30 minutes prior to your MRI VALIUM 5 MG TAB 003125 DIAZEPAM Inactive ANUSOL-HC 25 MG SUPPOSITORY 1 suppository rectally each evening as needed for anal fissure ANUSOL-HC 25 MG SUPPOSITORY 6931459 HYDROCORTISONE JAYDEN (RECTAL) Inactive ANUSOL-HC 25 MG SUPPOSITORY 1 rectally twice a day as needed for hemorrhoids ANUSOL-HC 25 MG SUPPOSITORY 7210485 HYDROCORTISONE JAYDEN (RECTAL) Inactive FLONASE 50 MCG/ACT SUSP 1 spray each nostril am and hs FLONASE 50 MCG/ACT SUSP 5313531 FLUTICASONE PROPIONATE Inactive DICLOFENAC SODIUM 75 MG TBEC 1 tablet by q 12 hours PRN headaches DICLOFENAC SODIUM 75 MG TBEC 132276 DICLOFENAC SODIUM Inactive PA VITAMIN D-3 2000 UNIT CAPS 1 CAP PO DAILY PA VITAMIN D-3 2000 UNIT CAPS CHOLECALCIFEROL Inactive PREVACID 30 MG CPDR Take 1 tablet by mouth daily-PRN PREVACID 30 MG CPDR 129926 LANSOPRAZOLE Inactive DOXYCYCLINE HYCLATE 100 MG TAB 1 tab twice a day for 14 days 2013 DOXYCYCLINE HYCLATE 100 MG TAB 7610887 DOXYCYCLINE HYCLATE Inactive XOPENEX 1.25 MG/3ML NEBU 1 neb every 4 hours if needed for cough/congestion XOPENEX 1.25 MG/3ML [facility] 263946 LEVALBUTEROL HCL Inactive CYCLOBENZAPRINE HCL 10 MG TABS 1/2 - 1 tab by mouth three times daily if needed for spasms/pain CYCLOBENZAPRINE HCL 10 MG TABS 514528 CYCLOBENZAPRINE HCL Inactive ALBUTEROL SULFATE 0.083 % NEBU SOLN one vial per nebulizer every 4-6 hours as needed ALBUTEROL SULFATE 0.083 % NEBU SOLN 974930 ALBUTEROL SULFATE Inactive CEFTIN 500 MG TAB 1 twice a day CEFTIN 500 MG TAB 088235 CEFUROXIME AXETIL Inactive ZOFRAN ODT 4 MG TBDP 1 pill dissolved by mouth every 4 hours if needed for nausea ZOFRAN ODT 4 MG TBDP 790359 ONDANSETRON Inactive ADULT ASPIRIN EC LOW STRENGTH 81 MG TBEC Take 1 tablet by mouth daily 2014 ADULT ASPIRIN EC LOW STRENGTH 81 MG TBEC 467552 ASPIRIN Inactive CALCIUM 600+D PLUS MINERALS 600-400 [...] or an apple NIACIN 500 MG TABS 386735 NIACIN Inactive NIASPAN 500 MG ORAL CR-TABS 1 pill nightly x 1 week, then 2 pills nightly x 1 week, then 3 pills nightly x 1 week, then 4 pills nightly NIASPAN 500 MG ORAL CR-TABS NIACIN (ANTIHYPERLIPIDEMIC) Inactive OXYCODONE HCL 5 MG ORAL CAPS 1 TAB PO Q HS OXYCODONE HCL 5 MG ORAL CAPS 9191257 OXYCODONE HCL Inactive FLUTICASONE PROPIONATE 50 MCG/ACT SUSP 1 to 2 sprays each nostril daily 04/21 FLUTICASONE PROPIONATE 50 MCG/ACT SUSP 5379827 FLUTICASONE PROPIONATE Inactive POLYTRIM 58917-6.1 UNIT/ML-% SOLN 1 gtt to affected eye q3h x 7 days POLYTRIM 38598-2.1 UNIT/ML-% SOLN 926476 POLYMYXIN B- TRIMETHOPRIM Inactive CHERATUSSIN AC 100-10 MG/5ML SYRP 1 tsp by mouth every 4 hours as needed for cough CHERATUSSIN AC 100-10 MG/5ML SYRP 077668 GUAIFENESIN-CODEINE Inactive LEVOTHYROXINE SODIUM 75 MCG TABS Take 1 tab daily LEVOTHYROXINE SODIUM 75 MCG TABS 044865 LEVOTHYROXINE SODIUM Inactive CLARITIN 10 MG TAB 1 tablet by mouth daily as needed for allergies CLARITIN 10 MG TAB 096081 LORATADINE Inactive FISH OIL 1000 MG CAPS 3 pills daily FISH OIL 1000 MG CAPS OMEGA-3 FATTY ACIDS Inactive ONDANSETRON 4 MG TBDP 1 q4h PRN nausea ONDANSETRON 4 MG TBDP 732396 ONDANSETRON Inactive ADVAIR DISKUS 250-50 MCG/DOSE AEPB 1 puff BID ADVAIR DISKUS 250-50 MCG/DOSE AEPB FLUTICASONE-SALMETEROL Inactive TRAMADOL HCL 50 MG TABS 1 tab po every 6 hrs prn pain TRAMADOL HCL 50 MG TABS 934650 TRAMADOL HCL Inactive TRIAMCINOLONE ACETONIDE 0.1 % CREA apply bid sparingly to rash TRIAMCINOLONE ACETONIDE 0.1 % CREA 9200074 TRIAMCINOLONE ACETONIDE Inactive PREDNISONE 20 MG TAB 1 tab twice daily for 3 day, then one daily for three days PREDNISONE 20 MG TAB 845472 PREDNISONE Inactive IBUPROFEN 600 MG TAB 1 tablet by mouth every 6 hours for 7 days, then 1 tablet every 6 hours as needed. Take with food IBUPROFEN 600 MG TAB 956599 IBUPROFEN Inactive BACTRIM DS 800-160 MG TAB 1 tab by mouth twice daily BACTRIM DS 800-160 MG TAB 19820606 TRIMETHOPRIM-SULFAMETHOXAZOLE Inactive AZITHROMYCIN 250 MG TABS 2 po qd x 1 day, then 1 po qd x 4 days AZITHROMYCIN 250 MG TABS 448700 AZITHROMYCIN Inactive CEFDINIR 300 MG CAPS by mouth twice a day CEFDINIR 300 MG CAPS 010459 CEFDINIR Inactive AZITHROMYCIN 250 MG TABS 2 pills on day 1, then 1 pill daily x 4 days AZITHROMYCIN 250 MG TABS 896312 AZITHROMYCIN Inactive DOXYCYCLINE HYCLATE 100 MG CAP 1 cap by mouth twice daily DOXYCYCLINE HYCLATE 100 MG CAP 8963391 DOXYCYCLINE HYCLATE Inactive FUROSEMIDE 20 MG TABS 1 pill by mouth daily, for edema FUROSEMIDE 20 MG TABS 055162 FUROSEMIDE Inactive AZITHROMYCIN 250 MG TABS 2 po qd x 1 day, then 1 po qd x 4 days AZITHROMYCIN 250 MG TABS 426030 AZITHROMYCIN Inactive CEFTIN 500 MG TAB 1 twice a day CEFTIN 500 MG TAB 442443 CEFUROXIME AXETIL Inactive CEFDINIR 300 MG CAPS 1 po BID x 10 days CEFDINIR 300 MG CAPS 20020708 CEFDINIR Inactive BACTRIM DS 800-160 MG TAB 1 tab by mouth twice daily BACTRIM DS 800-160 MG TAB 19820606 TRIMETHOPRIM-SULFAMETHOXAZOLE Inactive PREDNISONE 20 MG TAB 2 tabs daily for 3 days, 1 tab daily for 3 days, 1/2 tab daily for 2 days PREDNISONE 20 MG TAB 617549 PREDNISONE Inactive PREDNISONE 20 MG TAB take 3 tabs daily for 3 days, 2 tabs daily for 3 days, 1 tab daily for 3 days, 1/2 tab daily for 3 days PREDNISONE 20 MG TAB 288672 PREDNISONE Inactive BACTRIM DS 800-160 MG TAB 1 tab by mouth twice daily BACTRIM DS 800-160 MG TAB 219278 TRIMETHOPRIM-SULFAMETHOXAZOLE Inactive Immunizations Vaccine Administration Date Value Standard Description Seasonal influenza vaccine, injectable, containing preservative, for > 3 years old (Afluria, FluLaval, Fluzone, Fluvirin, Fluarix, Agriflu(>=18 yo)) Fluzone (>3 yrs.) [LOE913] Influenza, seasonal, injectable influenza immunization (Flu Vax) has been administered Influenza - Unspecified Formulation [CVX88] influenza virus vaccine, unspecified formulation pneumococcal immunization administered Pneumovax 23 [CVX33] pneumococcal polysaccharide vaccine, 23 valent Seasonal influenza vaccine, injectable, containing preservative, for > 3 years old (Afluria, FluLaval, Fluzone, Fluvirin, Fluarix, Agriflu(>=18 yo)) Fluzone (>3 yrs.) [SFU029] Influenza, seasonal, injectable dT (Diphtheria and Tetanus) booster given given Td(adult) unspecified formulation Boostrix (Tetanus toxoid, reduced diphtheria toxoid and acellular pertussis vaccine, adsorbed), booster Boostrix [MTM915] tetanus toxoid, reduced diphtheria toxoid, and acellular pertussis vaccine, adsorbed Vital Signs Date Name Value Unit Range Description blood pressure, diastolic 68 mm[Hg] BP weldon blood pressure, systolic 137 mm[Hg] BP sys height E&M 52.5 [in_us] Bdy height pulse rate E&M 65 /min Heart rate temperature E&M 97.8 [degF] Body temperature weight E&M 249.5 [lb_av] Weight Measured blood pressure, diastolic 88 mm[Hg] BP ewldon blood pressure, systolic 154 mm[Hg] BP sys height E&M 52.5 [in_us] Bdy height pulse rate E&M 64 /min Heart rate temperature E&M 99 [degF] Body temperature weight E&M 252.50 [lb_av] Weight Measured blood pressure, diastolic 70 mm[Hg] BP weldon blood pressure, systolic 130 mm[Hg] BP sys pulse rate E&M 78 /min Heart rate temperature E&M 98.3 [degF] Body temperature weight E&M 248 [lb_av] Weight Measured blood pressure, diastolic 74 mm[Hg] BP weldon blood pressure, systolic 131 mm[Hg] BP sys height E&M 52.5 [in_us] Bdy height pulse rate E&M 62 /min Heart rate temperature E&M 98.4 [degF] Body temperature weight E&M 248 [lb_av] Weight Measured blood pressure, diastolic 70 mm[Hg] BP weldon blood pressure, systolic 138 mm[Hg] BP sys pulse rate E&M 64 /min Heart rate temperature E&M 98.0 [degF] Body temperature weight E&M 250 [lb_av] Weight Measured blood pressure, diastolic 74 mm[Hg] BP weldon blood pressure, systolic 149 mm[Hg] BP sys pulse rate E&M 54 /min Heart rate temperature E&M 98.0 [degF] Body temperature weight E&M 247 [lb_av] Weight Measured blood pressure, diastolic 90 mm[Hg] BP weldon blood pressure, systolic 150 mm[Hg] BP sys pulse rate E&M 72 /min Heart rate temperature E&M 97.5 [degF] Body temperature weight E&M 248 [lb_av] Weight Measured blood pressure, diastolic 74 mm[Hg] BP weldon blood pressure, systolic 122 mm[Hg] BP sys pulse rate E&M 67 /min Heart rate temperature E&M 98.2 [degF] Body temperature blood pressure, diastolic 73 mm[Hg] BP weldon blood pressure, systolic 150 mm[Hg] BP sys pulse rate E&M 55 /min Heart rate temperature E&M 98.1 [degF] Body temperature weight E&M 253 [lb_av] Weight Measured Diagnostic Results Date Name Value Unit Range Description Lab Report: Lipid Panel, HEPATIC PANEL - Chemistry alanine aminotransferase (SGPT), serum 29 U/L 12-78 bilirubin, serum, total 0.20 mg/dL 0.00-1.00 aspartate aminotransferase (SGOT), serum 18 U/L 15-37 LDL cholesterol, serum 87 mg/dL 0-130 HDL cholesterol, serum 62 mg/dL 32-96 triglyceride, serum, fasting 86 mg/dL 30-200 cholesterol, serum 166 mg/dL 130-200 Lab Report: MicroAlb Random w/creat/6517 - Urinalysis microalbumin/total urine volume 3 mg/L Units converted. See lab report for original value. microalbumin/creatinine ratio, urine 5 MCG/MG CREAT mg/L <30 Lab Report: Thyroid Stimulating Hormone (L), Free Thyroxine (L) - Chemistry TSH 0.62 m[iU]/mL 0.36-3.74 thyroxine, serum, free 0.83 ng/dL 0.76-1.46 Office Visit: 6 MO F/U - Basic LDL target level 100 mg/dL Office Visit: 6 MO F/U - Chemistry HDL cholesterol, serum, target level 40 mg/dL triglyceride, target level 150 mg/dL cholesterol, target level 200 mg/dL Office Visit: Follow up IC - Chemistry protein, total urine random negative mg/dL RBC, urine, dipstick non-hemolyzed trace Office Visit: Follow up IC - Urinalysis ketones, urine, by test strip negative bilirubin, urine negative glucose, urine, semiquantitative negative urinalysis, routine Clean Catch pH, urine, semiquantitative 5 specific gravity, urine 1.020 urine color yellow appearance, urine clear leukocyte esterase, urine, by dipstick negative nitrite, urine, semiquantitative negative urobilinogen, urine, semiquantitative (dipstick) negative protein, urine, semiquantitative (dipstick) negative culture status No Encounters Code Encounter Date Provider Facility CPT-30623 Level 3 Est. Patient 14:50:29 CDT Gab Padron MD [facility] CPT-12148 Level 3 Est. Patient 14:46:09 CDT Tisha Lambert APRN [facility] CPT-85389 Level 4 New Patient 16:13:15 CDT Todd Callaway MD [facility] CPT-25932 Level 4 Est. Patient 13:18:33 CDT Gab Padron MD [facility] CPT-46666 Level 3 Est. Patient 15:20:50 CDT Jared Og MD [facility] CPT-21530 Level 3 Est. Patient 17:43:55 LEAD PRODUCER Gab Padron MD [facility] CPT-02394 Level 3 Est. Patient 17:07:49 LEAD PRODUCER Jared Og MD [facility] CPT-86182 Level 4 Est. Patient 19:55:18 LEAD PRODUCER Jared Og MD [facility] CPT-48030 Level 3 Est. Patient 20:13:34 LEAD PRODUCER Jared Og MD [facility] CPT-33593 Level 4 Est. Patient 16:31:27 CDT Gab Padron MD [facility] CPT-68631 Level 2 Est. Patient 12:23:38 CDT Jared Og MD [facility]-03358 Level 3 Est. Patient 11:01:51 CDT Gab Padron MD [facility] CPT-62962 Level 3 Est. Patient 15:27:02 CDT Jared Og MD [facility] CPT-99728 Level 4 Est. Patient 09:25:27 CDT Gab Padron MD [facility]-00164 Level 3 Est. Patient 10:29:41 CDT Rodrigo Sarah [facility] CPT-08700 Level 4 Est. Patient 17:51:05 CDT Gab Padron MD [facility]-75585 Level 3 Est. Patient 14:18:08 CDT Gab Padron MD [facility]-31278 Level 4 Est. Patient 10:18:54 CDT Gab Padron MD [facility]-48059 Level 3 Est. Patient 11:30:07 CDT Rodrigo Sarah [facility] CPT-72809 Level 4 Est. Patient 21:02:30 LEAD PRODUCER Gab Padron MD [facility]-41481 Level 3 Est. Patient 11:02:19 LEAD PRODUCER Gab Padron MD [facility] CPT-44973 Level 4 Est. Patient 22:24:31 LEAD PRODUCER Gab Padorn MD [facility] CPT-13158 Level 3 Est. Patient 18:33:46 LEAD PRODUCER Gab Padron MD [facility] CPT-88967 Level 3 Est. Patient 16:19:11 CDT Yolande Lindsay MD [facility]-43931 Level 3 Est. Patient 18:59:14 CDT Yolande Lindsay MD [facility]-04421 Level 4 Est. Patient 21:29:26 CDT Yolande Lindsay MD [facility] CPT-12562 Level 3 Est. Patient 07:37:45 CDT Yolande Lindsay MD [facility]-91000 Level 3 Est. Patient 17:03:46 CDT Yolande Lindsay MD [facility]-47682 Level 4 Est. Patient 20:02:13 LEAD PRODUCER Yolande Lindsay MD [facility]-19336 Level 3 Est. Patient 16:02:07 LEAD PRODUCER Alexis Ordaz MD [facility] [facility]-85802 Level 3 Est. Patient 12:41:24 LEAD PRODUCER Yolande Lindsay MD [facility]-15382 Level 3 Est. Patient 15:41:20 LEAD PRODUCER Yolande Lindsay MD [facility]-42658 Level 3 Est. Patient 13:20:02 LEAD PRODUCER Yolande Lindsay MD [facility]-48945 Level 3 Est. Patient 15:00:38 CDT Jared Og MD [facility]-20560 Level 3 Est. Patient 10:22:32 CDT Yolande Lindsay MD [facility]-18708 Level 3 Est. Patient 17:12:58 CDT Yolande Lindsay MD [facility] CPT-92097 Level 4 Est. Patient 13:30:58 CDT Yolande Lindsay MD [facility] CPT-84076 Level 4 New Patient 09:02:42 CDT Jared Og MD [place]-52130 Level 3 Est. Patient 08:19:07 CDT Yolande Lindsay MD [facility]-23729 Level 3 Est. Patient 12:00:13 LEAD PRODUCER Gab Padron MD [facility] [place]-98953 Level 3 Est. Patient 16:15:23 LEAD PRODUCER Yolande Lindsay MD [facility]-27996 Level 2 Est. Patient 19:47:15 CDT Yolande Lindsay MD [facility]97905 Level 3 Est. Patient 21:38:31 CDT Yolande Lindsay MD [facility]36303 Level 3 Est. Patient 10:25:12 CDT Adiel PERAZA [facility] [place]-04140 Level 4 Est. Patient 10:51:58 CDT Yolande Lindsay MD [facility]64492 Level 3 Est. Patient 14:04:55 LEAD PRODUCER Rodrigo Sarah [facility]-68781 Level 3 Est. Patient 10:46:35 LEAD PRODUCER Rodrigo Sarah [facility]-33351 Level 3 Est. Patient 14:24:37 LEAD PRODUCER Yolande Lindsay MD [facility]-78766 Level 3 Est. Patient 17:41:58 LEAD PRODUCER Yolande Lindsay MD [facility]99729 Level 2 Est. Patient 22:01:41 LEAD PRODUCER Rodrigo Sarah [facility]-31490 Level 2 Est. Patient 22:01:11 LEAD PRODUCER Rodrigo Sarah [facility]-72066 Level 3 Est. Patient 10:12:29 LEAD PRODUCER Rodrigo Sarah [facility]-22532 Level 3 Est. Patient 11:05:44 CDT Alexis Ordaz MD [facility] [place]-98082 Level 3 Est. Patient 14:57:20 CDT Yolande Lindsay MD [facility]94135 Level 3 Est. Patient 14:40:57 CDT Yolande Lindsay MD PhD [facility] CPT-20292 Level 3 Est. Patient 20:55:40 CDT Yolande Lindsay MD PhD [facility] CPT-42304 Level 3 Est. Patient 12:42:38 LEAD PRODUCER Yolande Lindsay MD PhD [facility] CPT-73115 Level 3 Est. Patient 11:54:49 LEAD PRODUCER Des Hines MD [facility] CPT-90939 Level 3 Est. Patient 17:06:38 CDT Dewayne PERAZA [facility] Procedures Code Procedure Name Date Entry Date Standard Description CPT-J2930 Solu Medrol 125 mg (Methyl Prednisolone Sodium Succinate) 13:19:02 CDT CPT-68602 Abx/Therapy Injection 13:19:02 CDT CPT-J2930 Solu Medrol 125 mg (Methyl Prednisolone Sodium Succinate) 13:05:03 CDT CPT-42450 Hip, complete, 2-3 views - XRAY USE ONLY 17:19:04 LEAD PRODUCER CPT-14482 Venipuncture Draw Fee 08:37:59 LEAD PRODUCER CPT-35355 Liver Profile - LAB USE ONLY 08:37:59 LEAD PRODUCER CPT-00861 Lipid - LAB USE ONLY 08:37:58 LEAD PRODUCER CPT-48477 First Vx - Ix admin via ID IM or jet injects without counseling by physician 11:52:31 CDT CPT-55919 Fluzone Preservative Free Intramuscular Suspension 11:52 :31 CDT CPT-38290 Foot, left, comp min 3V - XRAY USE ONLY 09:24:54 CDT CPT-84084 Abd single AP View - XRAY USE ONLY 11:16:17 CDT CPT-61275 T spine AP/ Lat - XRAY USE ONLY 09:34:21 CDT CPT-08794 Chest 2V Frontal and Lat - XRAY USE ONLY 10:48:51 CDT CPT-19695 LS spine comp w obliq 13:28:00 LEAD PRODUCER CPT-J1040 Depo Medrol 80 mg (Methyl Prednisolone Acetate) 10:51: 28 LEAD PRODUCER CPT-J1100 Decadron 8mg (Dexamethasone) 10:51:28 LEAD PRODUCER CPT-81797 Abx/Therapy Injection 10:51:28 LEAD PRODUCER CPT-J1100 Decadron 8mg (Dexamethasone) 21:02:30 LEAD PRODUCER CPT-J1040 Depo Medrol 80 mg (Methyl Prednisolone Acetate) 21:02: 30 LEAD PRODUCER [id number] Event Monitor - MC Transmission 09:12:32 CDT 08/06 [id number] Event Monitor - MC review and interp 09:12:32 CDT [id number] Event Monitor - MC recording 09:12:32 CDT CPT-91470 EKG Trac and Interp 16:50:22 CDT CPT-J1030 Depo Medrol 40 mg (Methyl Prednisolone Acetate) 17:05: 54 CDT CPT-J1100 Decadron 4mg (Dexamethasone) 17:05:54 CDT CPT-10175 Abx/Therapy Injection 17:05:54 CDT CPT-J1100 Decadron 4mg (Dexamethasone) 16:55:28 CDT CPT-J1030 Depo Medrol 40 mg (Methyl Prednisolone Acetate) 16:55: 28 CDT CPT-35692 Ankle Complete - Min 3V 15:58:50 CDT CPT-73088 Knee 3V 15:58:50 CDT CPT-77143 Hip comp min 2V 15:58:50 CDT CPT-J2270 Morphine Sulfate 10 mg 14:25:44 LEAD PRODUCER CPT-J2550 Phenergan 12.5 mg (Promethazine) 14:25:44 LEAD PRODUCER CPT-39601 Abx/Therapy Injection 14:25:44 LEAD PRODUCER CPT-J2550 Phenergan 12.5 mg (Promethazine) 14:08:03 LEAD PRODUCER CPT-J2270 Morphine Sulfate 10 mg 14:08:03 LEAD PRODUCER CPT-71303 Bladder Scan 15:00:38 CDT CPT-TCMM Transitional Care Mgmt-Moderate 09:52:22 CDT CPT-J1030 Depo Medrol 40 mg (Methyl Prednisolone Acetate) 10:55: 18 CDT CPT-J1100 Decadron 4mg (Dexamethasone) 10:55:18 CDT CPT-80004 Abx/Therapy Injection 10:55:18 CDT CPT-J1030 Depo Medrol 40 mg (Methyl Prednisolone Acetate) 10:22: 32 CDT CPT-J1100 Decadron 4mg (Dexamethasone) 10:22:32 CDT CPT-38874 Postop F/U Visit 14:37:13 CDT CPT-75827 Ankle Complete - Min 3V 17:11:58 CDT CPT-53276 Foot comp min 3V 17:11:58 CDT CPT-35230 Bladder Scan 09:56:58 CDT CPT-64973 Postop F/U Visit 09:56:58 CDT CPT-96916 Cystoscopy 09:02:42 CDT CPT-63579 Bladder Scan 09:02:42 CDT CPT-47466 Abd single AP View 16:00:35 CDT CPT-24869 Administration single or combination vaccine inc oral 10 :15:43 CDT CPT-05998 Influenza split virus > age 3 10:15:43 CDT CPT-28509 Nail Avulsion 09:24:57 CDT CPT-OV Office Visit 11:15:41 CDT CPT-33053 Abx/Therapy Injection 10:51:30 CDT CPT-J3301 Kenalog 40 mg (Triamcinolone Acetonide) 10:25:12 CDT CPT-J1100 Decadron 4mg (Dexamethasone) 10:25:12 CDT CPT-31719 Anoscopy diagnostic 10:36:12 CDT CPT-OV Office Visit 15:34:31 CDT CPT-29219 Abx/Therapy Injection 08:21:15 LEAD PRODUCER CPT-J1885 Toradol 60 mg (Ketorolac) 10:46:35 LEAD PRODUCER CPT-OV Office Visit 19:51:16 LEAD PRODUCER CPT-96839 Spec Collection and Handling Fee 14:34:18 LEAD PRODUCER CPT-PV Prev. Care Visit 14:19:18 LEAD PRODUCER CPT-95874 Postop F/U Visit 14:47:51 LEAD PRODUCER CPT-64875 Postop F/U Visit 15:15:14 LEAD PRODUCER CPT-12312 Postop F/U Visit 14:41:43 CDT CPT-95183 Postop F/U Visit 15:47:46 CDT CPT-OV Office Visit 15:27:23 CDT CPT-OV Office Visit 17:20:34 CDT CPT-66523 Abx/Therapy Injection 15:05:57 CDT CPT-J1100 Decadron 8mg (Dexamethasone) 14:44:57 CDT CPT-J1040 Depo Medrol 80 mg (Methyl Prednisolone Acetate) 14:44: 57 CDT CPT-JTINJ Joint Injection 10:17:37 CDT CPT-80704 Administration 2+ single or combination vaccines inc oral 13:01:46 LEAD PRODUCER CPT-26433 Administration single or combination vaccine inc oral 13 :01:46 LEAD PRODUCER CPT-18598 Pneumovax 13:01:46 LEAD PRODUCER CPT-59957 Influenza split virus > age 3 13:01:46 LEAD PRODUCER CPT-31265 Administration single or combination vaccine inc oral 08 :56:49 CDT CPT-07647 Tdap 08:56:49 CDT
--- OUTSIDE RECORDS SUMMARY | 2017-03-21 19:57 | XMS REPORT | Clinical Summary ---
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 Jillina Frazellilian EQUIPMENT DETAILER 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 Anemia 285.9 Active Gab Padron MD Anemia, unspecified Conjunctivitis 372.30 Active Jillnacho Sarah APRN Conjunctivitis, unspecified Sinusitis 473.9 Active Silvestrellina Frazell EQUIPMENT DETAILER Unspecified sinusitis (chronic) Nonspecific syndrome suggestive of viral illness 079.99 Active Jillina Siml EQUIPMENT DETAILER Unspecified viral infection Laryngitis 464.00 Active Jillina Farshadzell EQUIPMENT DETAILER Acute laryngitis without mention of obstruction Abdominal [...] Flank pain, left 789.09 Active Jillina Siml EQUIPMENT DETAILER Abdominal pain, other specified site; multiple sites Abdominal pain, generalized 789.07 Active Jillina Siml EQUIPMENT DETAILER Abdominal pain, generalized Back pain, thoracic region, left 724.1 Active Jillina Farshadzell EQUIPMENT DETAILER Pain in thoracic spine FOOT PAIN, RIGHT [...] TBDP 1 po q6hr PRN Nausea ONDANSETRON 14439809018 Active Jillina Frazell EQUIPMENT DETAILER Active IBUPROFEN 600 MG TAB 1 tablet by mouth every 6 hours for 7 days, then 1 tablet every 6 hours as needed. Take with food IBUPROFEN 53855251252 Active Jillina Frazell EQUIPMENT DETAILER Active BACTRIM DS 800-160 MG TAB 1 tab by mouth twice daily TRIMETHOPRIM-SULFAMETHOXAZOLE 65419155669 No Longer Active Gab Padron MD Active ADVAIR DISKUS 250-50 MCG/DOSE AEPB 1 puff BID FLUTICASONE- SALMETEROL 61054870458 Active Jillina Frazell EQUIPMENT DETAILER Active LEVOTHYROXINE SODIUM 75 MCG TABS Take 1 tab daily LEVOTHYROXINE SODIUM 86458168676 No Longer Active Mariana FLEMING Active SYNTHROID 88 MCG ORAL TABS Take one by mouth daily LEVOTHYROXINE SODIUM 93328786956 Active Mariana FLEMING Active CHERATUSSIN AC 100-10 MG/5ML SYRP 1 tsp by mouth every 4 hours as needed for cough GUAIFENESIN-CODEINE 99240483681 No Longer Active Gab Padron MD Active POLYTRIM 46750-3.1 UNIT/ML-% SOLN 1 gtt to affected eye q3h x 7 days POLYMYXIN B-TRIMETHOPRIM 10400527774 No Longer Active Gab Padron MD Active FLUTICASONE PROPIONATE 50 MCG/ACT SUSP 1 to 2 sprays each nostril daily 04/21 FLUTICASONE PROPIONATE 40481221327 No Longer Active Gab Padron MD Active TRILEPTAL 600 MG TABS Take one 1 tablet in Am and 1 tablet at night OXCARBAZEPINE 35118101613 Active Gab Padron MD Active CEFDINIR 300 MG CAPS 1 po BID x 10 days CEFDINIR 64089205630 No Longer Active Rodrigo Sarah APRN Active CEFTIN 500 MG TAB 1 twice a day CEFUROXIME AXETIL 79207475207 No Longer Active Gab Padron MD Active AZITHROMYCIN 250 MG TABS 2 po qd x 1 day, then 1 po qd x 4 days AZITHROMYCIN 44109839783 No Longer Active Rodrigo Sarah APRN Active CLARITIN 10 MG TAB 1 tablet by mouth daily as needed for allergies LORATADINE 29876892795 Active Rodrigo Sarah APRN Active OXYCODONE HCL 5 MG ORAL CAPS 1 TAB PO Q HS OXYCODONE HCL 27101370633 No Longer Active Rodrigo Sarah APRN Active NIASPAN 500 MG ORAL CR-TABS 1 pill nightly x 1 week, then 2 pills nightly x 1 week, then 3 pills nightly x 1 week, then 4 pills nightly NIACIN (ANTIHYPERLIPIDEMIC) 96790903441 No Longer Active Rodrigo Sarah APRN Active NIACIN 500 MG TABS 1 pill by mouth nightly x 1 week, then 2 pills x 1 week, then 3 pills x 1 week, then 4 pills nightly - take after evening meal, with applesauce or an apple NIACIN 48070821633 No Longer Active Yolande Lindsay MD PhD Active FISH OIL 1000 MG CAPS 3 pills daily OMEGA-3 FATTY ACIDS 17664810415 Active Yolande Lindsay MD PhD Active TRIAMCINOLONE ACETONIDE 0.1 % CREA apply bid sparingly to rash TRIAMCINOLONE ACETONIDE 07070580043 Active Yolande Lindsay MD PhD Active FUROSEMIDE 20 MG TAB 1 tablet by mouth daily FUROSEMIDE 88879592775 Active Tisha Lambert EQUIPMENT DETAILER Active LISINOPRIL 20 MG ORAL TABS 1 tab by mouth daily LISINOPRIL 68751894182 Active Gab Padron MD Active FUROSEMIDE 20 MG TABS 1 pill by mouth daily, for edema FUROSEMIDE 36598339322 No Longer Active Yolande Lindasy MD PhD Active ATORVASTATIN CALCIUM 10 MG TABS 1 pill by mouth daily, for cholesterol 09/06 ATORVASTATIN CALCIUM 96343772915 Active Gab Padron MD Active CALCIUM 600+D PLUS MINERALS 600-400 MG-UNIT ORAL CHEW 1 tab by mouth daily CALCIUM CARBONATE-VIT D-MIN 03719567698 No Longer Active Yolande Lindsay MD PhD Active CYCLOBENZAPRINE HCL 10 MG TABS 1 tablet by mouth three times daily as needed for muscle spasm/pain CYCLOBENZAPRINE HCL 11691588882 Active Yolande Lindsay MD PhD Active ONDANSETRON 4 MG TBDP 1 q4h PRN nausea ONDANSETRON 87534963801 Active Yolande Lindsay MD PhD Active ADULT ASPIRIN EC LOW STRENGTH 81 MG TBEC Take 1 tablet by mouth daily 2014 ASPIRIN 23814540459 No Longer Active Yolande Lindsay MD PhD Active ZOFRAN ODT 4 MG TBDP 1 pill dissolved by mouth every 4 hours if needed for nausea ONDANSETRON 72508904469 No Longer Active Yolande Lindsay MD PhD Active CEFTIN 500 MG TAB 1 twice a day CEFUROXIME AXETIL 07768832130 No Longer Active Yolande Lindsay MD PhD Active ALBUTEROL SULFATE 0.083 % NEBU SOLN one vial per nebulizer every 4-6 hours as needed ALBUTEROL SULFATE 93090267034 No Longer Active Alexis Ordaz MD Active DOXYCYCLINE HYCLATE 100 MG CAP 1 cap by mouth twice daily DOXYCYCLINE HYCLATE 68154064091 No Longer Active Yolande Lindsay MD PhD Active CYCLOBENZAPRINE HCL 10 MG TABS 1/2 - 1 tab by mouth three times daily if needed for spasms/pain CYCLOBENZAPRINE HCL 03997159522 No Longer Active Yolande Lindsay MD PhD Active AZITHROMYCIN 250 MG TABS 2 pills on day 1, then 1 pill daily x 4 days AZITHROMYCIN 51655014537 No Longer Active Yolande Lindsay MD PhD Active XOPENEX 1.25 MG/3ML NEBU 1 neb every 4 hours if needed for cough/congestion LEVALBUTEROL HCL 51832771405 No Longer Active Yolande Lindsay MD PhD Active DOXYCYCLINE HYCLATE 100 MG TAB 1 tab twice a day for 14 days 2013 DOXYCYCLINE HYCLATE 11082793712 No Longer Active Yolande Lindsay MD PhD Active PREVACID 30 MG CPDR Take 1 tablet by mouth daily-PRN LANSOPRAZOLE 82689076959 No Longer Active Yolande Lindsay MD PhD Active PA VITAMIN D-3 2000 UNIT CAPS 1 CAP PO DAILY CHOLECALCIFEROL 54383595767 No Longer Active Yolande Lindsay MD PhD Active CEFDINIR 300 MG CAPS by mouth twice a day CEFDINIR 03307592140 No Longer Active Gab Padron MD Active TOPAMAX 50 MG TABS 1 PO twice daily TOPIRAMATE 46584900227 Active Yolande Lindsay MD PhD Active AZITHROMYCIN 250 MG TABS 2 po qd x 1 day, then 1 po qd x 4 days AZITHROMYCIN 63784065125 No Longer Active Yolande Lindsay MD PhD Active DICLOFENAC SODIUM 75 MG TBEC 1 tablet by q 12 hours PRN headaches DICLOFENAC SODIUM 50429132778 No Longer Active Yolande Lindsay MD PhD Active FLONASE 50 MCG/ACT SUSP 1 spray each nostril am and hs FLUTICASONE PROPIONATE 15006839111 No Longer Active Todd Callaway MD Active ANUSOL-HC 25 MG SUPPOSITORY 1 rectally twice a day as needed for hemorrhoids HYDROCORTISONE JAYDEN (RECTAL) 53875797089 No Longer Active Yolande Lindsay MD PhD Active ANUSOL-HC 25 MG SUPPOSITORY 1 suppository rectally each evening as needed for anal fissure HYDROCORTISONE JAYDEN (RECTAL) 11014560032 No Longer Active LONNIE Iglesias Active VALIUM 5 MG TAB 1 po 30 minutes prior to your MRI DIAZEPAM 00675652420 No Longer Active LONNIE Iglesias Active METHOCARBAMOL 750 MG TABS 1 PO QID PRN METHOCARBAMOL 10422765040 No Longer Active Daphne Wetzel EQUIPMENT DETAILER Active NITROSTAT 0.4 MG SUBL as directed NITROGLYCERIN 32054074883 No Longer Active Rodrigo Sarah APRN Active ROBAXIN-750 750 MG TABS 2 four times a day for 3 days as needed for muscle spasm, then 1 four times a day as needed METHOCARBAMOL 51256293573 No Longer Active Rodrigo Sarah APRN Active HYDROCODONE-ACETAMINOPHEN 5-325 MG TABS 1 q 4-6 hrs prn HYDROCODONE-ACETAMINOPHEN 27899409929 No Longer Active Silvestrellnacho Sarah APRN Active VERAPAMIL HCL CR 180 MG CR-TABS TAKE 1 TAB DAILY VERAPAMIL HCL 00990969603 No Longer Active Yolande Lindsay MD PhD Active BACTRIM DS 800-160 MG TAB 1 tab by mouth twice daily TRIMETHOPRIM-SULFAMETHOXAZOLE 79593358156 No Longer Active Yolande Lindsay MD PhD Active NEXIUM 40 MG PACK 1 by mouth daily ESOMEPRAZOLE MAGNESIUM 96825925924 No Longer Active Des Hines MD Active EPIPEN 2-CHARLETTE 0.3 MG/0.3ML OMARI as need for allergic reaction EPINEPHRINE 18211992237 Active Yolande Lindsay MD PhD Active NEXIUM 40 MG CPDR 1 PO Q D DAY ESOMEPRAZOLE MAGNESIUM 88374331443 No Longer Active Sadia Perry RN Active NEXIUM 40 MG PACK 1 by mouth daily NEXIUM 40 MG PACK ESOMEPRAZOLE MAGNESIUM Inactive VERAPAMIL HCL CR 180 MG CR-TABS TAKE 1 TAB DAILY VERAPAMIL HCL CR 180 MG CR-TABS VERAPAMIL HCL Inactive HYDROCODONE-ACETAMINOPHEN 5-325 MG TABS 1 q 4-6 hrs prn HYDROCODONE-ACETAMINOPHEN 5-325 MG TABS 187282 HYDROCODONE-ACETAMINOPHEN Inactive ROBAXIN-750 750 MG TABS 2 four times a day for 3 days as needed for muscle spasm, then 1 four times a day as needed ROBAXIN-750 750 MG TABS 304246 METHOCARBAMOL Inactive NITROSTAT 0.4 MG SUBL as directed NITROSTAT 0.4 MG SUBL NITROGLYCERIN Inactive METHOCARBAMOL 750 MG TABS 1 PO QID PRN METHOCARBAMOL 750 MG TABS 752764 METHOCARBAMOL Inactive VALIUM 5 MG TAB 1 po 30 minutes prior to your MRI VALIUM 5 MG TAB 806601 DIAZEPAM Inactive ANUSOL-HC 25 MG SUPPOSITORY 1 suppository rectally each evening as needed for anal fissure ANUSOL-HC 25 MG SUPPOSITORY 0985735 HYDROCORTISONE JAYDEN (RECTAL) Inactive ANUSOL-HC 25 MG SUPPOSITORY 1 rectally twice a day as needed for hemorrhoids ANUSOL-HC 25 MG SUPPOSITORY 4394954 HYDROCORTISONE JAYDEN (RECTAL) Inactive FLONASE 50 MCG/ACT SUSP 1 spray each nostril am and hs FLONASE 50 MCG/ACT SUSP FLUTICASONE PROPIONATE Inactive DICLOFENAC SODIUM 75 MG TBEC 1 tablet by q 12 hours PRN headaches DICLOFENAC SODIUM 75 MG TBEC 584358 DICLOFENAC SODIUM Inactive PA VITAMIN D-3 2000 UNIT CAPS 1 CAP PO DAILY PA VITAMIN D-3 2000 UNIT CAPS CHOLECALCIFEROL Inactive PREVACID 30 MG CPDR Take 1 tablet by mouth daily-PRN PREVACID 30 MG CPDR 275447 LANSOPRAZOLE Inactive DOXYCYCLINE HYCLATE 100 MG TAB 1 tab twice a day for 14 days 2013 DOXYCYCLINE HYCLATE 100 MG TAB 7156679 DOXYCYCLINE HYCLATE Inactive XOPENEX 1.25 MG/3ML NEBU 1 neb every 4 hours if needed for cough/congestion XOPENEX 1.25 MG/3ML NEBU 909984 LEVALBUTEROL HCL Inactive CYCLOBENZAPRINE HCL 10 MG TABS 1/2 - 1 tab by mouth three times daily if needed for spasms/pain CYCLOBENZAPRINE HCL 10 MG TABS 316750 CYCLOBENZAPRINE HCL Inactive ALBUTEROL SULFATE 0.083 % NEBU SOLN one vial per nebulizer every 4-6 hours as needed ALBUTEROL SULFATE 0.083 % NEBU SOLN 306405 ALBUTEROL SULFATE Inactive CEFTIN 500 MG TAB 1 twice a day CEFTIN 500 MG TAB 283618 CEFUROXIME AXETIL Inactive ZOFRAN ODT 4 MG TBDP 1 pill dissolved by mouth every 4 hours if needed for nausea ZOFRAN ODT 4 MG TBDP 857379 ONDANSETRON Inactive ADULT ASPIRIN EC LOW STRENGTH 81 MG TBEC Take 1 tablet by mouth daily 2014 ADULT ASPIRIN EC LOW STRENGTH 81 MG TBEC 700265 ASPIRIN Inactive CALCIUM 600+D PLUS MINERALS 600-400 [...] or an apple NIACIN 500 MG TABS 141152 NIACIN Inactive NIASPAN 500 MG ORAL CR-TABS 1 pill nightly x 1 week, then 2 pills nightly x 1 week, then 3 pills nightly x 1 week, then 4 pills nightly NIASPAN 500 MG ORAL CR-TABS NIACIN (ANTIHYPERLIPIDEMIC) Inactive OXYCODONE HCL 5 MG ORAL CAPS 1 TAB PO Q HS OXYCODONE HCL 5 MG ORAL CAPS 4290503 OXYCODONE HCL Inactive FLUTICASONE PROPIONATE 50 MCG/ACT SUSP 1 to 2 sprays each nostril daily 04/21 FLUTICASONE PROPIONATE 50 MCG/ACT SUSP 288044 FLUTICASONE PROPIONATE Inactive POLYTRIM 77896-5.1 UNIT/ML-% SOLN 1 gtt to affected eye q3h x 7 days POLYTRIM 36137-3.1 UNIT/ML-% SOLN 363459 POLYMYXIN B- TRIMETHOPRIM Inactive CHERATUSSIN AC 100-10 MG/5ML SYRP 1 tsp by mouth every 4 hours as needed for cough CHERATUSSIN AC 100-10 MG/5ML SYRP 083865 GUAIFENESIN-CODEINE Inactive LEVOTHYROXINE SODIUM 75 MCG TABS Take 1 tab daily LEVOTHYROXINE SODIUM 75 MCG TABS 299737 LEVOTHYROXINE SODIUM Inactive BACTRIM DS 800-160 MG TAB 1 tab by mouth twice daily BACTRIM DS 800-160 MG TAB 877797 TRIMETHOPRIM-SULFAMETHOXAZOLE Inactive AZITHROMYCIN 250 MG TABS 2 po qd x 1 day, then 1 po qd x 4 days AZITHROMYCIN 250 MG TABS 6429692 AZITHROMYCIN Inactive CEFDINIR 300 MG CAPS by mouth twice a day CEFDINIR 300 MG CAPS 025991 CEFDINIR Inactive AZITHROMYCIN 250 MG TABS 2 pills on day 1, then 1 pill daily x 4 days AZITHROMYCIN 250 MG TABS 1168938 AZITHROMYCIN Inactive DOXYCYCLINE HYCLATE 100 MG CAP 1 cap by mouth twice daily DOXYCYCLINE HYCLATE 100 MG CAP 8543428 DOXYCYCLINE HYCLATE Inactive FUROSEMIDE 20 MG TABS 1 pill by mouth daily, for edema FUROSEMIDE 20 MG TABS 193751 FUROSEMIDE Inactive AZITHROMYCIN 250 MG TABS 2 po qd x 1 day, then 1 po qd x 4 days AZITHROMYCIN 250 MG TABS 1031319 AZITHROMYCIN Inactive CEFTIN 500 MG TAB 1 twice a day CEFTIN 500 MG TAB 454949 CEFUROXIME AXETIL Inactive CEFDINIR 300 MG CAPS 1 po BID x 10 days CEFDINIR 300 MG CAPS 915198 CEFDINIR Inactive BACTRIM DS 800-160 MG TAB 1 tab by mouth twice daily BACTRIM DS 800-160 MG TAB 954143 TRIMETHOPRIM-SULFAMETHOXAZOLE Inactive Immunizations Vaccine Administration Date Value Standard Description Seasonal influenza vaccine, injectable, containing preservative, for > 3 years old (Afluria, FluLaval, Fluzone, Fluvirin, Fluarix, Agriflu(>=18 yo)) Fluzone (>3 yrs.) [NMF057] Influenza, seasonal, injectable influenza immunization (Flu Vax) has been administered Influenza - Unspecified Formulation [CVX88] influenza virus vaccine, unspecified formulation Seasonal influenza vaccine, injectable, containing preservative, for > 3 years old (Afluria, FluLaval, Fluzone, Fluvirin, Fluarix, Agriflu(>=18 yo)) Fluzone (>3 yrs.) [KFQ148] Influenza, seasonal, injectable pneumococcal immunization administered Pneumovax 23 [CVX33] pneumococcal polysaccharide vaccine, 23 valent dT (Diphtheria and Tetanus) booster given given Td(adult) unspecified formulation Boostrix (Tetanus toxoid, reduced diphtheria toxoid and acellular pertussis vaccine, adsorbed), booster Boostrix [AGT927] tetanus toxoid, reduced diphtheria toxoid, and acellular [...] Panel - Chemistry sodium, serum 142 mmol/L 237-790 3418/06/30 potassium, serum 4.4 mmol/L 3.5-5.2 chloride, serum 108 mmol/L 98-107 carbon dioxide, venous blood 25.1 mmol/L 21.0-32.0 blood glucose 82 mg/dL 65-110 calcium, serum 9.1 mg/dL 8.5-10.1 urea nitrogen, blood 18 mg/dL 7-18 creatinine, serum 1.31 mg/dL 0.55-1.30 Lab Report: [facility] Advanced Lipid and Inlammation Panel /71496 - Chemistry cholesterol, serum 148 mg/dL 555-610 1327/09/02 HDL cholesterol, serum 55 mg/dL > OR=46 [...] (L) - Chemistry sodium, serum 145 mmol/L 131-193 4418/09/02 potassium, serum 4.6 mmol/L 3.5-5.2 chloride, serum [...] Rate - Chemistry sodium, serum 139 mmol/L 983-341 3814/03/24 carbon dioxide, venous blood 22.4 mmol/L 21.0-32.0 [...] ... - Chemistry sodium, serum 143 mmol/L 033-916 7905/05/02 carbon dioxide, venous blood 25.6 mmol/L 21.0-32.0 [...] Negative mg/dL Negative sodium, serum 142 mmol/L 322-784 4901/07/18 carbon dioxide, venous blood 27.8 mmol/L 21.0-32.0 [...] mg/dL Encounters Code Encounter Date Provider Facility CPT-36002 Level 3 Est. Patient 10:29:41 CDT Rodrigo Sarah [facility] CPT-46199 Level 4 Est. Patient 17:51:05 CDT Gab Padron MD [facility] CPT-12460 Level 3 Est. Patient 14:18:08 CDT Gab Padron MD [facility] CPT-56562 Level 4 Est. Patient 10:18:54 CDT Gab Padron MD [facility] CPT-32634 Level 3 Est. Patient 11:30:07 CDT Rodrigo Sarah [facility] CPT-44297 Level 4 Est. Patient 21:02:30 UPSETTER Gab Padron MD [facility] CPT-20088 Level 3 Est. Patient 11:02:19 UPSETTER Gab Padron MD [facility] CPT-08184 Level 4 Est. Patient 22:24:31 UPSETTER Gab Padron MD [facility] CPT-83417 Level 3 Est. Patient 18:33:46 UPSETTER Gab Padron MD [facility] CPT-91300 Level 3 Est. Patient 16:19:11 CDT Yolande Lindsay MD, PhD [facility] CPT-82805 Level 3 Est. Patient 18:59:14 CDT Yolande Lindsay MD [facility] CPT-81207 Level 4 Est. Patient 21:29:26 CDT Yolande Lindsay MD [facility]-36858 Level 3 Est. Patient 07:37:45 CDT Yolande Lindsay MD [facility]-91194 Level 3 Est. Patient 17:03:46 CDT Yolande Lindsay MD [facility]-03321 Level 4 Est. Patient 20:02:13 UPSETTER Yolande Lindsay MD [facility]-76322 Level 3 Est. Patient 16:02:07 UPSETTER Alexis Ordaz MD [facility]-47427 Level 3 Est. Patient 12:41:24 UPSETTER Yolande Lindsay MD [facility]-49876 Level 3 Est. Patient 15:41:20 UPSETTER Yolande Lindsay MD [facility]-10235 Level 3 Est. Patient 13:20:02 UPSETTER Yolande Lindsay MD [facility]-93179 Level 3 Est. Patient 15:00:38 CDT Jared Og MD [facility]-06131 Level 3 Est. Patient 10:22:32 CDT Yolande Lindsay MD [facility] CPT-89441 Level 3 Est. Patient 17:12:58 CDT Yolande Lindsay MD [facility]-79057 Level 4 Est. Patient 13:30:58 CDT Yolande Lindsay MD [facility] CPT-73820 Level 4 New Patient 09:02:42 CDT Jared Og MD [facility]-83737 Level 3 Est. Patient 08:19:07 CDT Yolande Lindsay MD [facility]-18705 Level 3 Est. Patient 12:00:13 UPSETTER Gab Padron MD [facility]-42822 Level 3 Est. Patient 16:15:23 UPSETTER Yolande Lindsay MD [facility]22170 Level 2 Est. Patient 19:47:15 CDT Yolande Lindsay MD [facility]-44841 Level 3 Est. Patient 21:38:31 CDT Yolande Lindsay MD [facility]-49488 Level 3 Est. Patient 10:25:12 CDT Adiel PERAZA [facility]-07326 Level 4 Est. Patient 10:51:58 CDT Yolande Lindsay MD [facility]-15609 Level 3 Est. Patient 14:04:55 UPSETTER Rodrigo Sarah [facility]-54397 Level 3 Est. Patient 10:46:35 UPSETTER Rodrigo Sarah [facility]-92134 Level 3 Est. Patient 14:24:37 UPSETTER Yolande Lindsay MD [facility]-87895 Level 3 Est. Patient 17:41:58 UPSETTER Yolande Lindsay MD [facility]-60285 Level 2 Est. Patient 22:01:41 UPSETTER Rodrigo Sarah [facility]-84809 Level 2 Est. Patient 22:01:11 UPSETTER Rodrigo Sarah [facility]-24925 Level 3 Est. Patient 10:12:29 UPSETTER Rodrigo Sarah [facility]-35448 Level 3 Est. Patient 11:05:44 CDT Alexis Ordaz MD [facility] CPT-99604 Level 3 Est. Patient 14:57:20 CDT Yolande Lindsay MD [facility] CPT-54186 Level 3 Est. Patient 14:40:57 CDT Yolande Lindsay MD [facility] CPT-56665 Level 3 Est. Patient 20:55:40 CDT Yolande Lindsay MD [facility] CPT-12012 Level 3 Est. Patient 12:42:38 UPSETTER Yolande Lindsay MD [facility] CPT-42995 Level 3 Est. Patient 11:54:49 UPSETTER Des Hines MD [facility] CPT-41343 Level 3 Est. Patient 17:06:38 CDT Dewayne PERAZA [facility] Procedures Code Procedure Name Date Entry Date Standard Description CPT-05892 Chest 2V Frontal and Lat - XRAY USE ONLY 10:48:51 CDT CPT-02487 LS spine comp w obliq 13:28:00 UPSETTER CPT-J1040 Depo Medrol 80 mg (Methyl Prednisolone Acetate) 10:51: 28 UPSETTER CPT-J1100 Decadron 8mg (Dexamethasone) 10:51:28 UPSETTER CPT-69210 Abx/Therapy Injection 10:51:28 UPSETTER CPT-J1100 Decadron 8mg (Dexamethasone) 21:02:30 UPSETTER CPT-J1040 Depo Medrol 80 mg (Methyl Prednisolone Acetate) 21:02: 30 UPSETTER [id number] Event Monitor - MC Transmission 09:12:32 CDT 08/06 [id number] Event Monitor - MC review and interp 09:12:32 CDT [id number] Event Monitor - MC recording 09:12:32 CDT CPT-09902 EKG Trac and Interp 16:50:22 CDT CPT-J1030 Depo Medrol 40 mg (Methyl Prednisolone Acetate) 17:05: 54 CDT CPT-J1100 Decadron 4mg (Dexamethasone) 17:05:54 CDT CPT-86039 Abx/Therapy Injection 17:05:54 CDT CPT-J1100 Decadron 4mg (Dexamethasone) 16:55:28 CDT CPT-J1030 Depo Medrol 40 mg (Methyl Prednisolone Acetate) 16:55: 28 CDT CPT-59189 Ankle Complete - Min 3V 15:58:50 CDT CPT-64784 Knee 3V 15:58:50 CDT CPT-38445 Hip comp min 2V 15:58:50 CDT CPT-J2270 Morphine Sulfate 10 mg 14:25:44 UPSETTER CPT-J2550 Phenergan 12.5 mg (Promethazine) 14:25:44 UPSETTER CPT-25966 Abx/Therapy Injection 14:25:44 UPSETTER CPT-J2550 Phenergan 12.5 mg (Promethazine) 14:08:03 UPSETTER CPT-J2270 Morphine Sulfate 10 mg 14:08:03 UPSETTER CPT-71214 Bladder Scan 15:00:38 CDT CPT-TCMM Transitional Care Mgmt-Moderate 09:52:22 CDT CPT-J1030 Depo Medrol 40 mg (Methyl Prednisolone Acetate) 10:55: 18 CDT CPT-J1100 Decadron 4mg (Dexamethasone) 10:55:18 CDT CPT-87085 Abx/Therapy Injection 10:55:18 CDT CPT-J1030 Depo Medrol 40 mg (Methyl Prednisolone Acetate) 10:22: 32 CDT CPT-J1100 Decadron 4mg (Dexamethasone) 10:22:32 CDT CPT-61170 Postop F/U Visit 14:37:13 CDT CPT-30048 Ankle Complete - Min 3V 17:11:58 CDT CPT-17455 Foot comp min 3V 17:11:58 CDT CPT-28005 Bladder Scan 09:56:58 CDT CPT-54047 Postop F/U Visit 09:56:58 CDT CPT-69970 Cystoscopy 09:02:42 CDT CPT-78980 Bladder Scan 09:02:42 CDT CPT-83212 Abd single AP View 16:00:35 CDT CPT-20083 Administration single or combination vaccine inc oral 10 :15:43 CDT CPT-27519 Influenza split virus > age 3 10:15:43 CDT CPT-69454 Nail Avulsion 09:24:57 CDT CPT-OV Office Visit 11:15:41 CDT CPT-99833 Abx/Therapy Injection 10:51:30 CDT CPT-J3301 Kenalog 40 mg (Triamcinolone Acetonide) 10:25:12 CDT CPT-J1100 Decadron 4mg (Dexamethasone) 10:25:12 CDT CPT-63227 Anoscopy diagnostic 10:36:12 CDT CPT-OV Office Visit 15:34:31 CDT CPT-41487 Abx/Therapy Injection 08:21:15 UPSETTER CPT-J1885 Toradol 60 mg (Ketorolac) 10:46:35 UPSETTER CPT-OV Office Visit 19:51:16 UPSETTER CPT-08163 Spec Collection and Handling Fee 14:34:18 UPSETTER CPT-PV Prev. Care Visit 14:19:18 UPSETTER CPT-01374 Postop F/U Visit 14:47:51 UPSETTER CPT-87643 Postop F/U Visit 15:15:14 UPSETTER CPT-37478 Postop F/U Visit 14:41:43 CDT CPT-46656 Postop F/U Visit 15:47:46 CDT CPT-OV Office Visit 15:27:23 CDT CPT-OV Office Visit 17:20:34 CDT CPT-91320 Abx/Therapy Injection 15:05:57 CDT CPT-J1100 Decadron 8mg (Dexamethasone) 14:44:57 CDT CPT-J1040 Depo Medrol 80 mg (Methyl Prednisolone Acetate) 14:44: 57 CDT CPT-JTINJ Joint Injection 10:17:37 CDT CPT-37662 Administration 2+ single or combination vaccines inc oral 13:01:46 UPSETTER CPT-36308 Administration single or combination vaccine inc oral 13 :01:46 UPSETTER CPT-98417 Pneumovax 13:01:46 UPSETTER CPT-49749 Influenza split virus > age 3 13:01:46 UPSETTER CPT-21139 Administration single or combination vaccine inc oral 08 :56:49 CDT CPT-28457 Tdap 08:56:49 CDT
--- OUTSIDE RECORDS SUMMARY | 2017-03-21 19:58 | XMS REPORT | Clinical Summary ---
Author Author Admin, MARGRET Organization [employer] Address Unknown Phone Unavailable Allergies, Adverse Reactions, Alerts Allergy Name Reaction Description Start Date Severity Status Provider VALENTIN Critical Active Rodrigo Montemayorl CHILD DEVELOPMENT SPECIALIST CHLORHEXIDINE GLUCONATE tongue and gums swollen Critical Active Hoa Kabaford RMA NORFLEX Rash Critical Active Silvestrellina Frazell CHILD DEVELOPMENT SPECIALIST TRAZODONE HCL sees things Critical Active [...] in limb Tick bite 989.5 Resolved Yolande Lidnsay MD PhD Toxic effect of venom URI [...] infarction, hx of 412 Active Hoa Otto [facility] Old myocardial infarction Pelvic pain 789.09 Active Yolande Lindsay MD PhD Abdominal pain, other specified site; multiple sites Edema 782.3 Active Yolande Lindsay MD PhD Edema Rash 782.1 Active Yolande Lidnsay MD PhD Rash and other nonspecific skin eruption Back pain, lumbar 724.2 Active Gab Padron MD Lumbago Cough 786.2 Active Jillina Tyrel CHILD DEVELOPMENT SPECIALIST Cough 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 Jillina Frazellilian CHILD DEVELOPMENT SPECIALIST 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 Anemia 285.9 Active Gab Padron MD Anemia, unspecified Conjunctivitis 372.30 Active Jillina Tyrel CHILD DEVELOPMENT SPECIALIST Conjunctivitis, unspecified Sinusitis 473.9 Active Jillina Frazell CHILD DEVELOPMENT SPECIALIST Unspecified sinusitis (chronic) Nonspecific syndrome suggestive of viral illness 079.99 Active Rodrigo Sarah CHILD DEVELOPMENT SPECIALIST Unspecified viral infection Laryngitis 464.00 Active Rodrigo Sarah APRN Acute laryngitis without mention of obstruction Abdominal pain 789.00 Active Gab Padron MD Abdominal pain, unspecified site Chest discomfort 786.59 Active Gab Padron MD Other chest pain FOOT PAIN, RIGHT ICD-729.5 Inactive Yolande Lindsay [...] MD PhD Flank pain ICD-789.09 Inactive Yolande Lindsya MD PhD Sinusitis ICD-461.9 Inactive Yolande Lindsay [...] MCG/DOSE AEPB 1 puff BID FLUTICASONE- SALMETEROL 10895479505 Active Rodrigo Sarah CHILD DEVELOPMENT SPECIALIST Active LEVOTHYROXINE SODIUM 75 MCG TABS Take 1 tab daily LEVOTHYROXINE SODIUM 02963872672 No Longer Active Mariana FLEMING Active SYNTHROID 88 MCG ORAL TABS Take one by mouth daily LEVOTHYROXINE SODIUM 66801275608 Active Marinaa FLEMING Active CHERATUSSIN AC 100-10 MG/5ML SYRP 1 tsp by mouth every 4 hours as needed for cough GUAIFENESIN-CODEINE 03839853013 No Longer Active Gab Padron MD Active POLYTRIM 02216-8.1 UNIT/ML-% SOLN 1 gtt to affected eye q3h x 7 days POLYMYXIN B-TRIMETHOPRIM 73250772492 No Longer Active Gab Padron MD Active FLUTICASONE PROPIONATE 50 MCG/ACT SUSP 1 to 2 sprays each nostril daily 04/21 FLUTICASONE PROPIONATE 37846420823 No Longer Active Gab Padron MD Active TRILEPTAL 600 MG TABS Take one 1 tablet in Am and 1 tablet at night OXCARBAZEPINE 96547483717 Active Gab Padron MD Active CEFDINIR 300 MG CAPS 1 po BID x 10 days CEFDINIR 35629802925 No Longer Active Rodrigo Sarah APRN Active CEFTIN 500 MG TAB 1 twice a day CEFUROXIME AXETIL 93699741398 No Longer Active Gab Padron MD Active AZITHROMYCIN 250 MG TABS 2 po qd x 1 day, then 1 po qd x 4 days AZITHROMYCIN 80751123685 No Longer Active Rodrigo Sarah APRN Active CLARITIN 10 MG TAB 1 tablet by mouth daily as needed for allergies LORATADINE 15657375522 Active Rodrigo Sarah APRN Active OXYCODONE HCL 5 MG ORAL CAPS 1 TAB PO Q HS OXYCODONE HCL 16480402303 No Longer Active Rodrigo Sarah APRN Active NIASPAN 500 MG ORAL CR-TABS 1 pill nightly x 1 week, then 2 pills nightly x 1 week, then 3 pills nightly x 1 week, then 4 pills nightly NIACIN (ANTIHYPERLIPIDEMIC) 40200285553 No Longer Active Rodrigo Sarah APRN Active NIACIN 500 MG TABS 1 pill by mouth nightly x 1 week, then 2 pills x 1 week, then 3 pills x 1 week, then 4 pills nightly - take after evening meal, with applesauce or an apple NIACIN 72709449895 No Longer Active Yolande Lindsay MD PhD Active FISH OIL 1000 MG CAPS 3 pills daily OMEGA-3 FATTY ACIDS 41039552889 Active Yolande Lindsay MD PhD Active TRIAMCINOLONE ACETONIDE 0.1 % CREA apply bid sparingly to rash TRIAMCINOLONE ACETONIDE 69913545532 Active Yolande Lindsay MD PhD Active FUROSEMIDE 20 MG TAB 1 tablet by mouth daily FUROSEMIDE 51931626702 Active Tisha Lambert CHILD DEVELOPMENT SPECIALIST Active LISINOPRIL 20 MG ORAL TABS 1 tab by mouth daily LISINOPRIL 71438302827 Active Gab Padron MD Active FUROSEMIDE 20 MG TABS 1 pill by mouth daily, for edema FUROSEMIDE 34366794087 No Longer Active Yolande Lindsay MD PhD Active ATORVASTATIN CALCIUM 10 MG TABS 1 pill by mouth daily, for cholesterol 09/06 ATORVASTATIN CALCIUM 66611253047 Active Gab Padron MD Active CALCIUM 600+D PLUS MINERALS 600-400 MG-UNIT ORAL CHEW 1 tab by mouth daily CALCIUM CARBONATE-VIT D-MIN 55844499242 No Longer Active Yolande Lindsay MD PhD Active CYCLOBENZAPRINE HCL 10 MG TABS 1 tablet by mouth three times daily as needed for muscle spasm/pain CYCLOBENZAPRINE HCL 08148947087 Active Yolande Lindsay MD PhD Active ONDANSETRON 4 MG TBDP 1 q4h PRN nausea ONDANSETRON 63612766314 Active Yolande Lindsay MD PhD Active ADULT ASPIRIN EC LOW STRENGTH 81 MG TBEC Take 1 tablet by mouth daily 2014 ASPIRIN 01088098825 No Longer Active Yolande Lindsay MD PhD Active ZOFRAN ODT 4 MG TBDP 1 pill dissolved by mouth every 4 hours if needed for nausea ONDANSETRON 20075397840 No Longer Active Yolande Lindsay MD PhD Active CEFTIN 500 MG TAB 1 twice a day CEFUROXIME AXETIL 12144563817 No Longer Active Yolande Lindsay MD PhD Active ALBUTEROL SULFATE 0.083 % NEBU SOLN one vial per nebulizer every 4-6 hours as needed ALBUTEROL SULFATE 43204565148 No Longer Active Alexis Ordaz MD Active DOXYCYCLINE HYCLATE 100 MG CAP 1 cap by mouth twice daily DOXYCYCLINE HYCLATE 57500706353 No Longer Active Yolande Lindsay MD PhD Active CYCLOBENZAPRINE HCL 10 MG TABS 1/2 - 1 tab by mouth three times daily if needed for spasms/pain CYCLOBENZAPRINE HCL 24860847133 No Longer Active Yolande Lindsay MD PhD Active AZITHROMYCIN 250 MG TABS 2 pills on day 1, then 1 pill daily x 4 days AZITHROMYCIN 49808918487 No Longer Active Yolande Lindsay MD PhD Active XOPENEX 1.25 MG/3ML NEBU 1 neb every 4 hours if needed for cough/congestion LEVALBUTEROL HCL 42652322968 No Longer Active Yolande Lindsay MD PhD Active DOXYCYCLINE HYCLATE 100 MG TAB 1 tab twice a day for 14 days 2013 DOXYCYCLINE HYCLATE 77398802786 No Longer Active Yolande Lindsay MD PhD Active PREVACID 30 MG CPDR Take 1 tablet by mouth daily-PRN LANSOPRAZOLE 98403637285 No Longer Active Yolande Lindsay MD PhD Active PA VITAMIN D-3 2000 UNIT CAPS 1 CAP PO DAILY CHOLECALCIFEROL 45975741382 No Longer Active Yolande Lindsay MD PhD Active CEFDINIR 300 MG CAPS by mouth twice a day CEFDINIR 31530132217 No Longer Active Gab Padron MD Active TOPAMAX 50 MG TABS 1 PO twice daily TOPIRAMATE 72576675165 Active Yolande Lindsay MD PhD Active AZITHROMYCIN 250 MG TABS 2 po qd x 1 day, then 1 po qd x 4 days AZITHROMYCIN 00588434779 No Longer Active Yolande Lindsay MD PhD Active DICLOFENAC SODIUM 75 MG TBEC 1 tablet by q 12 hours PRN headaches DICLOFENAC SODIUM 80266540949 No Longer Active Yolande Lindsay MD PhD Active FLONASE 50 MCG/ACT SUSP 1 spray each nostril am and hs FLUTICASONE PROPIONATE 24782780906 No Longer Active Todd Callaway MD Active ANUSOL-HC 25 MG SUPPOSITORY 1 rectally twice a day as needed for hemorrhoids HYDROCORTISONE JAYDEN (RECTAL) 55071172588 No Longer Active Yolande Lindsay MD PhD Active ANUSOL-HC 25 MG SUPPOSITORY 1 suppository rectally each evening as needed for anal fissure HYDROCORTISONE JAYDEN (RECTAL) 63861212859 No Longer Active LONNIE Iglesias Active VALIUM 5 MG TAB 1 po 30 minutes prior to your MRI DIAZEPAM 23004597696 No Longer Active LONNIE Iglesias Active METHOCARBAMOL 750 MG TABS 1 PO QID PRN METHOCARBAMOL 12718915561 No Longer Active Daphne Wetzel APRN Active NITROSTAT 0.4 MG SUBL as directed NITROGLYCERIN 23349971049 No Longer Active Rodrigo Sarah APRN Active ROBAXIN-750 750 MG TABS 2 four times a day for 3 days as needed for muscle spasm, then 1 four times a day as needed METHOCARBAMOL 60560931314 No Longer Active Rodrigo Sarah APRN Active HYDROCODONE-ACETAMINOPHEN 5-325 MG TABS 1 q 4-6 hrs prn HYDROCODONE-ACETAMINOPHEN 47371259877 No Longer Active Rodrigo Sarah APRN Active VERAPAMIL HCL CR 180 MG CR-TABS TAKE 1 TAB DAILY VERAPAMIL HCL 28062399348 No Longer Active Yolande Lindsay MD PhD Active BACTRIM DS 800-160 MG TAB 1 tab by mouth twice daily TRIMETHOPRIM-SULFAMETHOXAZOLE 98067341942 No Longer Active Yolande Lindsay MD PhD Active NEXIUM 40 MG PACK 1 by mouth daily ESOMEPRAZOLE MAGNESIUM 74331920813 No Longer Active Des Hines MD Active EPIPEN 2-CHARLETTE 0.3 MG/0.3ML OMARI as need for allergic reaction EPINEPHRINE 57245497214 Active Yolande Lindsay MD PhD Active NEXIUM 40 MG CPDR 1 PO Q D DAY ESOMEPRAZOLE MAGNESIUM 56840706813 No Longer Active Sadia Perry RN Active NEXIUM 40 MG PACK 1 by mouth daily NEXIUM 40 MG PACK ESOMEPRAZOLE MAGNESIUM Inactive VERAPAMIL HCL CR 180 MG CR-TABS TAKE 1 TAB DAILY VERAPAMIL HCL CR 180 MG CR-TABS VERAPAMIL HCL Inactive HYDROCODONE-ACETAMINOPHEN 5-325 MG TABS 1 q 4-6 hrs prn HYDROCODONE-ACETAMINOPHEN 5-325 MG TABS 168964 HYDROCODONE-ACETAMINOPHEN Inactive ROBAXIN-750 750 MG TABS 2 four times a day for 3 days as needed for muscle spasm, then 1 four times a day as needed ROBAXIN-750 750 MG TABS 229767 METHOCARBAMOL Inactive NITROSTAT 0.4 MG SUBL as directed NITROSTAT 0.4 MG SUBL NITROGLYCERIN Inactive METHOCARBAMOL 750 MG TABS 1 PO QID PRN METHOCARBAMOL 750 MG TABS 272672 METHOCARBAMOL Inactive VALIUM 5 MG TAB 1 po 30 minutes prior to your MRI VALIUM 5 MG TAB 114906 DIAZEPAM Inactive ANUSOL-HC 25 MG SUPPOSITORY 1 suppository rectally each evening as needed for anal fissure ANUSOL-HC 25 MG SUPPOSITORY 2283208 HYDROCORTISONE JAYDEN (RECTAL) Inactive ANUSOL-HC 25 MG SUPPOSITORY 1 rectally twice a day as needed for hemorrhoids ANUSOL-HC 25 MG SUPPOSITORY 7902328 HYDROCORTISONE JAYDEN (RECTAL) Inactive FLONASE 50 MCG/ACT SUSP 1 spray each nostril am and hs FLONASE 50 MCG/ACT SUSP 733067 FLUTICASONE PROPIONATE Inactive DICLOFENAC SODIUM 75 MG TBEC 1 tablet by q 12 hours PRN headaches DICLOFENAC SODIUM 75 MG TBEC 329171 DICLOFENAC SODIUM Inactive PA VITAMIN D-3 2000 UNIT CAPS 1 CAP PO DAILY PA VITAMIN D-3 2000 UNIT CAPS CHOLECALCIFEROL Inactive PREVACID 30 MG CPDR Take 1 tablet by mouth daily-PRN PREVACID 30 MG CPDR 279276 LANSOPRAZOLE Inactive DOXYCYCLINE HYCLATE 100 MG TAB 1 tab twice a day for 14 days 2013 DOXYCYCLINE HYCLATE 100 MG TAB 6299879 DOXYCYCLINE HYCLATE Inactive XOPENEX 1.25 MG/3ML NEBU 1 neb every 4 hours if needed for cough/congestion XOPENEX 1.25 MG/3ML NEBU 795883 LEVALBUTEROL HCL Inactive CYCLOBENZAPRINE HCL 10 MG TABS 1/2 - 1 tab by mouth three times daily if needed for spasms/pain CYCLOBENZAPRINE HCL 10 MG TABS 903310 CYCLOBENZAPRINE HCL Inactive ALBUTEROL SULFATE 0.083 % NEBU SOLN one vial per nebulizer every 4-6 hours as needed ALBUTEROL SULFATE 0.083 % NEBU SOLN 346528 ALBUTEROL SULFATE Inactive CEFTIN 500 MG TAB 1 twice a day CEFTIN 500 MG TAB 968476 CEFUROXIME AXETIL Inactive ZOFRAN ODT 4 MG TBDP 1 pill dissolved by mouth every 4 hours if needed for nausea ZOFRAN ODT 4 MG TBDP 332158 ONDANSETRON Inactive ADULT ASPIRIN EC LOW STRENGTH 81 MG TBEC Take 1 tablet by mouth daily 2014 ADULT ASPIRIN EC LOW STRENGTH 81 MG TBEC 252892 ASPIRIN Inactive CALCIUM 600+D PLUS MINERALS 600-400 [...] or an apple NIACIN 500 MG TABS 569237 NIACIN Inactive NIASPAN 500 MG ORAL CR-TABS 1 pill nightly x 1 week, then 2 pills nightly x 1 week, then 3 pills nightly x 1 week, then 4 pills nightly NIASPAN 500 MG ORAL CR-TABS NIACIN (ANTIHYPERLIPIDEMIC) Inactive OXYCODONE HCL 5 MG ORAL CAPS 1 TAB PO Q HS OXYCODONE HCL 5 MG ORAL CAPS 7742179 OXYCODONE HCL Inactive FLUTICASONE PROPIONATE 50 MCG/ACT SUSP 1 to 2 sprays each nostril daily 04/21 FLUTICASONE PROPIONATE 50 MCG/ACT SUSP 201151 FLUTICASONE PROPIONATE Inactive POLYTRIM 25818-4.1 UNIT/ML-% SOLN 1 gtt to affected eye q3h x 7 days POLYTRIM 01436-8.1 UNIT/ML-% SOLN 542862 POLYMYXIN B- TRIMETHOPRIM Inactive CHERATUSSIN AC 100-10 MG/5ML SYRP 1 tsp by mouth every 4 hours as needed for cough CHERATUSSIN AC 100-10 MG/5ML SYRP 406140 GUAIFENESIN-CODEINE Inactive LEVOTHYROXINE SODIUM 75 MCG TABS Take 1 tab daily LEVOTHYROXINE SODIUM 75 MCG TABS 818805 LEVOTHYROXINE SODIUM Inactive BACTRIM DS 800-160 MG TAB 1 tab by mouth twice daily BACTRIM DS 800-160 MG TAB 033761 TRIMETHOPRIM-SULFAMETHOXAZOLE Inactive AZITHROMYCIN 250 MG TABS 2 po qd x 1 day, then 1 po qd x 4 days AZITHROMYCIN 250 MG TABS 7142196 AZITHROMYCIN Inactive CEFDINIR 300 MG CAPS by mouth twice a day CEFDINIR 300 MG CAPS 20020708 CEFDINIR Inactive AZITHROMYCIN 250 MG TABS 2 pills on day 1, then 1 pill daily x 4 days AZITHROMYCIN 250 MG TABS 8392764 AZITHROMYCIN Inactive DOXYCYCLINE HYCLATE 100 MG CAP 1 cap by mouth twice daily DOXYCYCLINE HYCLATE 100 MG CAP 2743028 DOXYCYCLINE HYCLATE Inactive FUROSEMIDE 20 MG TABS 1 pill by mouth daily, for edema FUROSEMIDE 20 MG TABS 067338 FUROSEMIDE Inactive AZITHROMYCIN 250 MG TABS 2 po qd x 1 day, then 1 po qd x 4 days AZITHROMYCIN 250 MG TABS 2647112 AZITHROMYCIN Inactive CEFTIN 500 MG TAB 1 twice a day CEFTIN 500 MG TAB 302789 CEFUROXIME AXETIL Inactive CEFDINIR 300 MG CAPS 1 po BID x 10 days CEFDINIR 300 MG CAPS 20020708 CEFDINIR Inactive Immunizations Vaccine Administration Date Value Standard Description Seasonal influenza vaccine, injectable, containing preservative, for > 3 years old (Afluria, FluLaval, Fluzone, Fluvirin, Fluarix, Agriflu(>=18 yo)) Fluzone (>3 yrs.) [[id number]] Influenza, seasonal, injectable influenza immunization (Flu Vax) has been administered Influenza - Unspecified Formulation [CVX88] influenza virus vaccine, unspecified formulation Seasonal influenza vaccine, injectable, containing preservative, for > 3 years old (Afluria, FluLaval, Fluzone, Fluvirin, Fluarix, Agriflu(>=18 yo)) Fluzone (>3 yrs.) [EFL334] Influenza, seasonal, injectable pneumococcal immunization administered Pneumovax 23 [CVX33] pneumococcal polysaccharide vaccine, 23 valent dT (Diphtheria and Tetanus) booster given given Td(adult) unspecified formulation Boostrix (Tetanus toxoid, reduced diphtheria toxoid and acellular pertussis vaccine, adsorbed), booster Boostrix [HNO754] tetanus toxoid, reduced diphtheria toxoid, and acellular [...] pressure, diastolic - 8462-4 68 mm[Hg] BP weldno blood pressure, systolic - 8480-6 15 mm[Hg] [...] E&M - 3141-9 237 [lb_av] Weight Measured Diagnostic Results Date Name Value Unit Range Description Lab Report: Basic Metabolic Panel - Chemistry calcium, serum 8.2 mg/dL 8.5-10.1 urea nitrogen, blood 24 mg/dL 7-18 creatinine, serum 1.30 mg/dL 0.60-1.30 blood glucose 92 mg/dL 65-110 carbon dioxide, venous blood 23.4 mmol/L 21.0-32.0 chloride, serum 109 mmol/L 98-107 potassium, serum 3.9 mmol/L 3.5-5.2 sodium, serum 145 mmol/L 136-145 Lab Report: [facility] Advanced Lipid and Inlammation Panel /47517 - Chemistry cholesterol, serum 148 mg/dL 423-153 2534/09/02 HDL cholesterol, serum 55 mg/dL > OR=46 [...] (L) - Chemistry sodium, serum 145 mmol/L 849-430 6608/09/02 potassium, serum 4.6 mmol/L 3.5-5.2 chloride, serum [...] Rate - Chemistry sodium, serum 139 mmol/L 756-469 0542/03/24 carbon dioxide, venous blood 22.4 mmol/L 21.0-32.0 [...] ... - Chemistry sodium, serum 143 mmol/L 634-470 6742/05/02 carbon dioxide, venous blood 25.6 mmol/L 21.0-32.0 [...] mg/dL Encounters Code Encounter Date Provider Facility CPT-80625 Level 4 Est. Patient 10:18:54 CDT Gab Padron MD [facility] CPT-20572 Level 3 Est. Patient 11:30:07 CDT Rodrigo Sarah APRN [facility] CPT-40948 Level 4 Est. Patient 21:02:30 [employer] Gab Padron MD [facility] CPT-36948 Level 3 Est. Patient 11:02:19 [employer] Gab Padron MD [facility] CPT-75156 Level 4 Est. Patient 22:24:31 [employer]END[employer] Gab Padron MD [facility]-42572 Level 3 Est. Patient 18:33:46 [employer]END[employer] Gab Padron MD [facility]-35756 Level 3 Est. Patient 16:19:11 CDT Yolande Lindsay MD [facility]-75223 Level 3 Est. Patient 18:59:14 CDT Yolande Lindsay MD [facility]-95576 Level 4 Est. Patient 21:29:26 CDT Yolande Lindsay MD [facility]-18639 Level 3 Est. Patient 07:37:45 CDT Yolande Lindsay MD [facility]-70613 Level 3 Est. Patient 17:03:46 CDT Yolande Lindsay MD [facility]-70463 Level 4 Est. Patient 20:02:13 [employer]END[employer] Yolande Lindsay MD [facility]-64483 Level 3 Est. Patient 16:02:07 [employer]END[employer] Alexis Ordaz MD [facility]-16279 Level 3 Est. Patient 12:41:24 [employer]END[employer] Yolande Lindsay MD [facility]-05427 Level 3 Est. Patient 15:41:20 [employer]END[employer] Yolande Lindsay MD [facility]-64900 Level 3 Est. Patient 13:20:02 [employer]END[employer] Yolande Lindsay MD [facility]-21939 Level 3 Est. Patient 15:00:38 CDT Jared Og MD [facility]-40162 Level 3 Est. Patient 10:22:32 CDT Yolande Lindsay MD [facility]-45371 Level 3 Est. Patient 17:12:58 CDT Yolande Lindsay MD [facility]-24935 Level 4 Est. Patient 13:30:58 CDT Yolande Lindsay MD [facility] CPT-70128 Level 4 New Patient 09:02:42 CDT Jared Og MD [facility]-27734 Level 3 Est. Patient 08:19:07 CDT Yolande Lindsay MD [facility]-68488 Level 3 Est. Patient 12:00:13 [employer]END[employer] Gab Padron MD [facility]-35632 Level 3 Est. Patient 16:15:23 [employer]END[employer] Yolande Lindsay MD [facility]-26926 Level 2 Est. Patient 19:47:15 CDT Yolande Lindsay MD [facility]-64768 Level 3 Est. Patient 21:38:31 CDT Yolande Lindsay MD [facility]-88106 Level 3 Est. Patient 10:25:12 CDT Adiel PERAZA [facility] CPT-27211 Level 4 Est. Patient 10:51:58 CDT Yolande Lindsay MD [facility]-89597 Level 3 Est. Patient 14:04:55 [employer]END[employer] Rodrigo Sarah [facility]-85156 Level 3 Est. Patient 10:46:35 [employer]END[employer] Rodrigo Sarah [facility]-70933 Level 3 Est. Patient 14:24:37 [employer]END[employer] Yolande Lindsay MD [facility]-58618 Level 3 Est. Patient 17:41:58 [employer]END[employer] Yolande Lindsay MD [facility]-18104 Level 2 Est. Patient 22:01:41 [employer]END[employer] Rodrigo Sarah [facility]-84297 Level 2 Est. Patient 22:01:11 [employer]END[employer] Rodrigo Sarah [facility] CPT-82377 Level 3 Est. Patient 10:12:29 [employer]END[employer] Rodrigo Sarah [facility] CPT-10693 Level 3 Est. Patient 11:05:44 CDT Alexis Ordaz MD [facility] CPT-72522 Level 3 Est. Patient 14:57:20 CDT Yolande Lindsay MD [facility] CPT-02333 Level 3 Est. Patient 14:40:57 CDT Yolande Lindsay MD [facility]-59804 Level 3 Est. Patient 20:55:40 CDT Yolande Lindsay MD [facility]-10750 Level 3 Est. Patient 12:42:38 [employer]END[employer] Yolande Lindsay MD [facility]-26250 Level 3 Est. Patient 11:54:49 [employer]END[employer] Des Hines MD [facility] CPT-96622 Level 3 Est. Patient 17:06:38 CDT Dewayne PERAZA [facility] Procedures Code Procedure Name Date Entry Date Standard Description CPT-84400 LS spine comp w obliq 13:28:00 [employer]END[employer] CPT-J1040 Depo Medrol 80 mg (Methyl Prednisolone Acetate) 10:51: 28 [employer]END[employer] CPT-J1100 Decadron 8mg (Dexamethasone) 10:51:28 [employer]END[employer] CPT-55492 Abx/Therapy Injection 10:51:28 [employer]END[employer] CPT-J1100 Decadron 8mg (Dexamethasone) 21:02:30 [employer]END[employer] CPT-J1040 Depo Medrol 80 mg (Methyl Prednisolone Acetate) 21:02: 30 [employer]END[employer] [id number] Event Monitor - MC Transmission 09:12:32 CDT 08/06 [id number] Event Monitor - MC review and interp 09:12:32 CDT [id number] Event Monitor - MC recording 09:12:32 CDT CPT-39530 EKG Trac and Interp 16:50:22 CDT CPT-J1030 Depo Medrol 40 mg (Methyl Prednisolone Acetate) 17:05: 54 CDT CPT-J1100 Decadron 4mg (Dexamethasone) 17:05:54 CDT CPT-11832 Abx/Therapy Injection 17:05:54 CDT CPT-J1100 Decadron 4mg (Dexamethasone) 16:55:28 CDT CPT-J1030 Depo Medrol 40 mg (Methyl Prednisolone Acetate) 16:55: 28 CDT CPT-86016 Ankle Complete - Min 3V 15:58:50 CDT CPT-63452 Knee 3V 15:58:50 CDT CPT-16605 Hip comp min 2V 15:58:50 CDT CPT-J2270 Morphine Sulfate 10 mg 14:25:44 [employer] CPT-J2550 Phenergan 12.5 mg (Promethazine) 14:25:44 [employer] CPT-61375 Abx/Therapy Injection 14:25:44 [employer] CPT-J2550 Phenergan 12.5 mg (Promethazine) 14:08:03 [employer]END[employer] CPT-J2270 Morphine Sulfate 10 mg 14:08:03 [employer]END[employer] CPT-43429 Bladder Scan 15:00:38 CDT CPT-TCMM Transitional Care Mgmt-Moderate 09:52:22 CDT CPT-J1030 Depo Medrol 40 mg (Methyl Prednisolone Acetate) 10:55: 18 CDT CPT-J1100 Decadron 4mg (Dexamethasone) 10:55:18 CDT CPT-58897 Abx/Therapy Injection 10:55:18 CDT CPT-J1030 Depo Medrol 40 mg (Methyl Prednisolone Acetate) 10:22: 32 CDT CPT-J1100 Decadron 4mg (Dexamethasone) 10:22:32 CDT CPT-44943 Postop F/U Visit 14:37:13 CDT CPT-53467 Ankle Complete - Min 3V 17:11:58 CDT CPT-51548 Foot comp min 3V 17:11:58 CDT CPT-02448 Bladder Scan 09:56:58 CDT CPT-27259 Postop F/U Visit 09:56:58 CDT CPT-63936 Cystoscopy 09:02:42 CDT CPT-46166 Bladder Scan 09:02:42 CDT CPT-05957 Abd single AP View 16:00:35 CDT CPT-10214 Administration single or combination vaccine inc oral 10 :15:43 CDT CPT-97763 Influenza split virus > age 3 10:15:43 CDT CPT-41693 Nail Avulsion 09:24:57 CDT CPT-OV Office Visit 11:15:41 CDT CPT-28889 Abx/Therapy Injection 10:51:30 CDT CPT-J3301 Kenalog 40 mg (Triamcinolone Acetonide) 10:25:12 CDT CPT-J1100 Decadron 4mg (Dexamethasone) 10:25:12 CDT CPT-22332 Anoscopy diagnostic 10:36:12 CDT CPT-OV Office Visit 15:34:31 CDT CPT-28101 Abx/Therapy Injection 08:21:15 [employer]END[employer] CPT-J1885 Toradol 60 mg (Ketorolac) 10:46:35 [employer] ATTEND[employer] CPT-OV Office Visit 19:51:16 [employer]END[employer] CPT-76141 Spec Collection and Handling Fee 14:34:18 [employer] ATTENDANT CPT-PV Prev. Care Visit 14:19:18 [employer] ATTEND[employer] CPT-93486 Postop F/U Visit 14:47:51 [employer] ATTEND[employer] CPT-44149 Postop F/U Visit 15:15:14 [employer] ATTEND[employer] CPT-92965 Postop F/U Visit 14:41:43 CDT CPT-54439 Postop F/U Visit 15:47:46 CDT CPT-OV Office Visit 15:27:23 CDT CPT-OV Office Visit 17:20:34 CDT CPT-08811 Abx/Therapy Injection 15:05:57 CDT CPT-J1100 Decadron 8mg (Dexamethasone) 14:44:57 CDT CPT-J1040 Depo Medrol 80 mg (Methyl Prednisolone Acetate) 14:44: 57 CDT CPT-JTINJ Joint Injection 10:17:37 CDT CPT-43540 Administration 2+ single or combination vaccines inc oral 13:01:46 [employer]END[employer] CPT-03169 Administration single or combination vaccine inc oral 13 :01:46 [employer]END[employer] CPT-67103 Pneumovax 13:01:46 [employer]END[employer] CPT-29852 Influenza split virus > age 3 13:01:46 [employer]END[employer] CPT-35770 Administration single or combination vaccine inc oral 08 :56:49 CDT CPT-17688 Tdap 08:56:49 CDT
--- OUTSIDE RECORDS SUMMARY | 2017-03-21 20:00 | XMS REPORT | Clinical Summary ---
Author Author Admin, E Organization [facility] Address Unknown Phone Unavailable Allergies, Adverse Reactions, Alerts Allergy Name Reaction Description Start Date Severity Status Provider VALENTIN Critical Active Rodrigo Fracharlottel [employer] TECHNICAL LEAD CHLORHEXIDINE GLUCONATE tongue and gums swollen Critical Active Hoadante Otto RMA NORFLEX Rash Critical Active Silvestrellina Frazell JAVA J2EE TECHNICAL LEAD TRAZODONE HCL sees things Critical Active Dewayne [...] and unspecified sites, without mention of infection Anaphylactic reaction due to peanuts, initial encounter Active Gab Padron MD FOOT PAIN, RIGHT ICD-729.5 Inactive Yolande Lindsay [...] TOENAIL ICD-703.0 Inactive Yolande Lindsay MD PhD AUDREY ANGELAL ICD-703.0 Inactive Yolande Lindsay MD PhD Hip [...] MD Renal insufficiency, mild ICD-585.2 Inactive Gab Padrno MD Flank pain, left ICD-789.09 Inactive Gab [...] days, 1/2 tab daily for 2 days end 02/05/17 PREDNISONE 94224857709 Active Gab Padron MD Active ZANTAC 150 MG TAB 1 by mouth twice daily RANITIDINE HCL 21303187382 Active Gab Padron MD Active TRIAMCINOLONE ACETONIDE 0.1 % CREA Apply to affected area 3 times daily for up to 2 weeks TRIAMCINOLONE ACETONIDE 43599465018 Active Tisha Lambert [employer] J[employer]EE TECHNICAL LEAD Active LISINOPRIL 40 MG TABS 1 tablet by mouth daily LISINOPRIL 80081669016 Active Tisha Lambert APRN Active IBUPROFEN 600 MG TAB 1 tablet by mouth every 6 hours for 7 days, then 1 tablet every 6 hours as needed. Take with food IBUPROFEN 82551135473 No Longer Active Tisha Lambert APRN Active PREDNISONE 20 MG TAB 1 tab twice daily for 3 day, then one daily for three days PREDNISONE 14272865956 No Longer Active Tisha Fausto GAUTAM Active TRIAMCINOLONE ACETONIDE 0.1 % CREA apply bid sparingly to rash TRIAMCINOLONE ACETONIDE 07301541808 No Longer Active Gab Padron MD Active TRAMADOL HCL 50 MG TABS 1 tab po every 6 hrs prn pain TRAMADOL HCL 47673759023 No Longer Active Gab Padron MD Active BACTRIM DS 800-160 MG TAB 1 tab by mouth twice daily TRIMETHOPRIM-SULFAMETHOXAZOLE 75762565559 No Longer Active Tisha Lambert APRN Active ADVAIR DISKUS 250-50 MCG/DOSE AEPB 1 puff BID FLUTICASONE-SALMETEROL 08594586809 No Longer Active Todd Callaway MD Active ONDANSETRON 4 MG TBDP 1 q4h PRN nausea ONDANSETRON 52815521507 No Longer Active LONNIE Iglesias Active FISH OIL 1000 MG CAPS 3 pills daily OMEGA-3 FATTY ACIDS 95680675215 No Longer Active LONNIE Iglesias Active CETIRIZINE HCL 10 MG ORAL TABS 1 po qd PRN Allergies CETIRIZINE HCL 31294688133 Active Gab Padron MD Active CLARITIN 10 MG TAB 1 tablet by mouth daily as needed for allergies LORATADINE 95787207431 No Longer Active Gab Padron MD Active PREDNISONE 20 MG TAB take 3 tabs daily for 3 days, 2 tabs daily for 3 days, 1 tab daily for 3 days, 1/2 tab daily for 3 days PREDNISONE 55432796890 No Longer Active Tisha Lambert APRN Active PREDNISONE 20 MG TAB 2 tabs daily for 3 days, 1 tab daily for 3 days, 1/2 tab daily for 2 days PREDNISONE 23396532444 No Longer Active Gab Padron MD Active ZOFRAN ODT 4 MG TBDP 1 po q6hr PRN Nausea ONDANSETRON 08448681756 Active Gab Padron MD Active BACTRIM DS 800-160 MG TAB 1 tab by mouth twice daily TRIMETHOPRIM-SULFAMETHOXAZOLE 08658460430 No Longer Active Gab Padron MD Active LEVOTHYROXINE SODIUM 75 MCG TABS Take 1 tab daily LEVOTHYROXINE SODIUM 97617673759 No Longer Active Mariana FLEMING Active SYNTHROID 88 MCG ORAL TABS Take one by mouth daily LEVOTHYROXINE SODIUM 19049501677 Active Tisha Lambert APRN Active CHERATUSSIN AC 100-10 MG/5ML SYRP 1 tsp by mouth every 4 hours as needed for cough GUAIFENESIN-CODEINE 22068099810 No Longer Active Gab Padron MD Active POLYTRIM 85783-2.1 UNIT/ML-% SOLN 1 gtt to affected eye q3h x 7 days POLYMYXIN B-TRIMETHOPRIM 40308782049 No Longer Active Gab Padron MD Active FLUTICASONE PROPIONATE 50 MCG/ACT SUSP 1 to 2 sprays each nostril daily 04/21 FLUTICASONE PROPIONATE 35012022847 No Longer Active Gab Padron MD Active TRILEPTAL 600 MG TABS Take one 1 tablet in Am and 1 tablet at night OXCARBAZEPINE 75440253260 Active Gab Padron MD Active CEFDINIR 300 MG CAPS 1 po BID x 10 days CEFDINIR 82685379694 No Longer Active Rodrigo Sarah APRN Active CEFTIN 500 MG TAB 1 twice a day CEFUROXIME AXETIL 07951328978 No Longer Active Gab Padron MD Active AZITHROMYCIN 250 MG TABS 2 po qd x 1 day, then 1 po qd x 4 days AZITHROMYCIN 26489109382 No Longer Active Rodrigo Sarah APRN Active OXYCODONE HCL 5 MG ORAL CAPS 1 TAB PO Q HS OXYCODONE HCL 76366216075 No Longer Active Rodrigo Sarah APRN Active NIASPAN 500 MG ORAL CR-TABS 1 pill nightly x 1 week, then 2 pills nightly x 1 week, then 3 pills nightly x 1 week, then 4 pills nightly NIACIN (ANTIHYPERLIPIDEMIC) 89045537390 No Longer Active Rodrigo Sarah APRN Active NIACIN 500 MG TABS 1 pill by mouth nightly x 1 week, then 2 pills x 1 week, then 3 pills x 1 week, then 4 pills nightly - take after evening meal, with applesauce or an apple NIACIN 22896784006 No Longer Active Yolande Lindsay MD PhD Active FUROSEMIDE 20 MG TAB 1 tablet by mouth daily FUROSEMIDE 94460608496 Active Gab Padron MD Active FUROSEMIDE 20 MG TABS 1 pill by mouth daily, for edema FUROSEMIDE 50692140720 No Longer Active Yolande Lindsay MD PhD Active ATORVASTATIN CALCIUM 10 MG TABS 1 pill by mouth daily, for cholesterol 09/06 ATORVASTATIN CALCIUM 60455890332 Active Gab Padron MD Active CALCIUM 600+D PLUS MINERALS 600-400 MG-UNIT ORAL CHEW 1 tab by mouth daily CALCIUM CARBONATE-VIT D-MIN 25946895943 No Longer Active Yolande Lindsay MD PhD Active CYCLOBENZAPRINE HCL 10 MG TABS 1 tablet by mouth three times daily as needed for muscle spasm/pain CYCLOBENZAPRINE HCL 71890935402 Active Yolande Lindsay MD PhD Active ADULT ASPIRIN EC LOW STRENGTH 81 MG TBEC Take 1 tablet by mouth daily 2014 ASPIRIN 74281310462 No Longer Active Yolande Lindsay MD PhD Active ZOFRAN ODT 4 MG TBDP 1 pill dissolved by mouth every 4 hours if needed for nausea ONDANSETRON 58079585117 No Longer Active Yolande Lindsay MD PhD Active CEFTIN 500 MG TAB 1 twice a day CEFUROXIME AXETIL 43716353795 No Longer Active Yolande Lindsay MD PhD Active ALBUTEROL SULFATE 0.083 % NEBU SOLN one vial per nebulizer every 4-6 hours as needed ALBUTEROL SULFATE 76712797134 No Longer Active Alexis Ordaz MD Active DOXYCYCLINE HYCLATE 100 MG CAP 1 cap by mouth twice daily DOXYCYCLINE HYCLATE 87036780123 No Longer Active Yolande Lindsay MD PhD Active CYCLOBENZAPRINE HCL 10 MG TABS 1/2 - 1 tab by mouth three times daily if needed for spasms/pain CYCLOBENZAPRINE HCL 01593663262 No Longer Active Yolande Lindsay MD PhD Active AZITHROMYCIN 250 MG TABS 2 pills on day 1, then 1 pill daily x 4 days AZITHROMYCIN 63728930139 No Longer Active Yolande Lindsay MD PhD Active XOPENEX 1.25 MG/3ML NEBU 1 neb every 4 hours if needed for cough/congestion LEVALBUTEROL HCL 84250894398 No Longer Active Yolande Lindsay MD PhD Active DOXYCYCLINE HYCLATE 100 MG TAB 1 tab twice a day for 14 days 2013 DOXYCYCLINE HYCLATE 15716837912 No Longer Active Yolande Lindsay MD PhD Active PREVACID 30 MG CPDR Take 1 tablet by mouth daily-PRN LANSOPRAZOLE 46094466558 No Longer Active Yolande Lindsay MD PhD Active PA VITAMIN D-3 2000 UNIT CAPS 1 CAP PO DAILY CHOLECALCIFEROL 22339706024 No Longer Active Yolande Lindsay MD PhD Active CEFDINIR 300 MG CAPS by mouth twice a day CEFDINIR 81987420368 No Longer Active Gab Padron MD Active TOPAMAX 50 MG TABS 1 PO twice daily TOPIRAMATE 13140713845 Active Yolande Lindsay MD PhD Active AZITHROMYCIN 250 MG TABS 2 po qd x 1 day, then 1 po qd x 4 days AZITHROMYCIN 32989991796 No Longer Active Yolande Lindsay MD PhD Active DICLOFENAC SODIUM 75 MG TBEC 1 tablet by q 12 hours PRN headaches DICLOFENAC SODIUM 03467989540 No Longer Active Yolande Lindsay MD PhD Active FLONASE 50 MCG/ACT SUSP 1 spray each nostril am and hs FLUTICASONE PROPIONATE 29028875794 No Longer Active Todd Callaway MD Active ANUSOL-HC 25 MG SUPPOSITORY 1 rectally twice a day as needed for hemorrhoids HYDROCORTISONE JAYDEN (RECTAL) 80596759879 No Longer Active Yolande Lindsay MD PhD Active ANUSOL-HC 25 MG SUPPOSITORY 1 suppository rectally each evening as needed for anal fissure HYDROCORTISONE JAYDEN (RECTAL) 64888667831 No Longer Active LONNIE Iglesias Active VALIUM 5 MG TAB 1 po 30 minutes prior to your MRI DIAZEPAM 34855407712 No Longer Active LONNIE Iglesias Active METHOCARBAMOL 750 MG TABS 1 PO QID PRN METHOCARBAMOL 47512500524 No Longer Active Daphne Wetzel APRN Active NITROSTAT 0.4 MG SUBL as directed NITROGLYCERIN 27869415255 No Longer Active Rodrigo Sarah APRN Active ROBAXIN-750 750 MG TABS 2 four times a day for 3 days as needed for muscle spasm, then 1 four times a day as needed METHOCARBAMOL 11320896983 No Longer Active Rodrigo Sarah APRN Active HYDROCODONE-ACETAMINOPHEN 5-325 MG TABS 1 q 4-6 hrs prn HYDROCODONE-ACETAMINOPHEN 76308818688 No Longer Active Silvestrellnacho Sarah APRN Active VERAPAMIL HCL CR 180 MG CR-TABS TAKE 1 TAB DAILY VERAPAMIL HCL 74323575346 No Longer Active Yolande Lindsay MD PhD Active BACTRIM DS 800-160 MG TAB 1 tab by mouth twice daily TRIMETHOPRIM-SULFAMETHOXAZOLE 58106796915 No Longer Active Yolande Lindsay MD PhD Active NEXIUM 40 MG PACK 1 by mouth daily ESOMEPRAZOLE MAGNESIUM 37399721442 No Longer Active Des Hines MD Active EPIPEN 2-CHARLETTE 0.3 MG/0.3ML OMARI as need for allergic reaction EPINEPHRINE 98160127451 Active Yolande Lindsay MD PhD Active NEXIUM 40 MG CPDR 1 PO Q D DAY ESOMEPRAZOLE MAGNESIUM 20680212776 No Longer Active Sadia Perry RN Active NEXIUM 40 MG PACK 1 by mouth daily NEXIUM 40 MG PACK ESOMEPRAZOLE MAGNESIUM Inactive VERAPAMIL HCL CR 180 MG CR-TABS TAKE 1 TAB DAILY VERAPAMIL HCL CR 180 MG CR-TABS VERAPAMIL HCL Inactive HYDROCODONE-ACETAMINOPHEN 5-325 MG TABS 1 q 4-6 hrs prn HYDROCODONE-ACETAMINOPHEN 5-325 MG TABS 154506 HYDROCODONE-ACETAMINOPHEN Inactive ROBAXIN-750 750 MG TABS 2 four times a day for 3 days as needed for muscle spasm, then 1 four times a day as needed ROBAXIN-750 750 MG TABS 348647 METHOCARBAMOL Inactive NITROSTAT 0.4 MG SUBL as directed NITROSTAT 0.4 MG SUBL 258705 NITROGLYCERIN Inactive METHOCARBAMOL 750 MG TABS 1 PO QID PRN METHOCARBAMOL 750 MG TABS 893355 METHOCARBAMOL Inactive VALIUM 5 MG TAB 1 po 30 minutes prior to your MRI VALIUM 5 MG TAB 352811 DIAZEPAM Inactive ANUSOL-HC 25 MG SUPPOSITORY 1 suppository rectally each evening as needed for anal fissure ANUSOL-HC 25 MG SUPPOSITORY 9332867 HYDROCORTISONE JAYDEN (RECTAL) Inactive ANUSOL-HC 25 MG SUPPOSITORY 1 rectally twice a day as needed for hemorrhoids ANUSOL-HC 25 MG SUPPOSITORY 2959956 HYDROCORTISONE JAYDEN (RECTAL) Inactive FLONASE 50 MCG/ACT SUSP 1 spray each nostril am and hs FLONASE 50 MCG/ACT SUSP 9205128 FLUTICASONE PROPIONATE Inactive DICLOFENAC SODIUM 75 MG TBEC 1 tablet by q 12 hours PRN headaches DICLOFENAC SODIUM 75 MG TBEC 944663 DICLOFENAC SODIUM Inactive PA VITAMIN D-3 2000 UNIT CAPS 1 CAP PO DAILY PA VITAMIN D-3 2000 UNIT CAPS CHOLECALCIFEROL Inactive PREVACID 30 MG CPDR Take 1 tablet by mouth daily-PRN PREVACID 30 MG CPDR 658532 LANSOPRAZOLE Inactive DOXYCYCLINE HYCLATE 100 MG TAB 1 tab twice a day for 14 days 2013 DOXYCYCLINE HYCLATE 100 MG TAB 0029525 DOXYCYCLINE HYCLATE Inactive XOPENEX 1.25 MG/3ML NEBU 1 neb every 4 hours if needed for cough/congestion XOPENEX 1.25 MG/3ML NEBU 788282 LEVALBUTEROL HCL Inactive CYCLOBENZAPRINE HCL 10 MG TABS 1/2 - 1 tab by mouth three times daily if needed for spasms/pain CYCLOBENZAPRINE HCL 10 MG TABS 135002 CYCLOBENZAPRINE HCL Inactive ALBUTEROL SULFATE 0.083 % NEBU SOLN one vial per nebulizer every 4-6 hours as needed ALBUTEROL SULFATE 0.083 % NEBU SOLN 231204 ALBUTEROL SULFATE Inactive CEFTIN 500 MG TAB 1 twice a day CEFTIN 500 MG TAB 134889 CEFUROXIME AXETIL Inactive ZOFRAN ODT 4 MG TBDP 1 pill dissolved by mouth every 4 hours if needed for nausea ZOFRAN ODT 4 MG TBDP 539728 ONDANSETRON Inactive ADULT ASPIRIN EC LOW STRENGTH 81 MG TBEC Take 1 tablet by mouth daily 2014 ADULT ASPIRIN EC LOW STRENGTH 81 MG TBEC 082190 ASPIRIN Inactive CALCIUM 600+D PLUS MINERALS 600-400 [...] or an apple NIACIN 500 MG TABS 690869 NIACIN Inactive NIASPAN 500 MG ORAL CR-TABS 1 pill nightly x 1 week, then 2 pills nightly x 1 week, then 3 pills nightly x 1 week, then 4 pills nightly NIASPAN 500 MG ORAL CR-TABS NIACIN (ANTIHYPERLIPIDEMIC) Inactive OXYCODONE HCL 5 MG ORAL CAPS 1 TAB PO Q HS OXYCODONE HCL 5 MG ORAL CAPS 8494824 OXYCODONE HCL Inactive FLUTICASONE PROPIONATE 50 MCG/ACT SUSP 1 to 2 sprays each nostril daily 04/21 FLUTICASONE PROPIONATE 50 MCG/ACT SUSP 4886457 FLUTICASONE PROPIONATE Inactive POLYTRIM 78739-3.1 UNIT/ML-% SOLN 1 gtt to affected eye q3h x 7 days POLYTRIM 19130-5.1 UNIT/ML-% SOLN 300371 POLYMYXIN B- TRIMETHOPRIM Inactive CHERATUSSIN AC 100-10 MG/5ML SYRP 1 tsp by mouth every 4 hours as needed for cough CHERATUSSIN AC 100-10 MG/5ML SYRP 576205 GUAIFENESIN-CODEINE Inactive LEVOTHYROXINE SODIUM 75 MCG TABS Take 1 tab daily LEVOTHYROXINE SODIUM 75 MCG TABS 056241 LEVOTHYROXINE SODIUM Inactive CLARITIN 10 MG TAB 1 tablet by mouth daily as needed for allergies CLARITIN 10 MG TAB 985721 LORATADINE Inactive FISH OIL 1000 MG CAPS 3 pills daily FISH OIL 1000 MG CAPS OMEGA-3 FATTY ACIDS Inactive ONDANSETRON 4 MG TBDP 1 q4h PRN nausea ONDANSETRON 4 MG TBDP 055383 ONDANSETRON Inactive ADVAIR DISKUS 250-50 MCG/DOSE AEPB 1 puff BID ADVAIR DISKUS 250-50 MCG/DOSE AEPB FLUTICASONE-SALMETEROL Inactive TRAMADOL HCL 50 MG TABS 1 tab po every 6 hrs prn pain TRAMADOL HCL 50 MG TABS 456052 TRAMADOL HCL Inactive TRIAMCINOLONE ACETONIDE 0.1 % CREA apply bid sparingly to rash TRIAMCINOLONE ACETONIDE 0.1 % CREA 7277047 TRIAMCINOLONE ACETONIDE Inactive PREDNISONE 20 MG TAB 1 tab twice daily for 3 day, then one daily for three days PREDNISONE 20 MG TAB 154494 PREDNISONE Inactive IBUPROFEN 600 MG TAB 1 tablet by mouth every 6 hours for 7 days, then 1 tablet every 6 hours as needed. Take with food IBUPROFEN 600 MG TAB 552606 IBUPROFEN Inactive BACTRIM DS 800-160 MG TAB 1 tab by mouth twice daily BACTRIM DS 800-160 MG TAB 19820606 TRIMETHOPRIM-SULFAMETHOXAZOLE Inactive AZITHROMYCIN 250 MG TABS 2 po qd x 1 day, then 1 po qd x 4 days AZITHROMYCIN 250 MG TABS 439551 AZITHROMYCIN Inactive CEFDINIR 300 MG CAPS by mouth twice a day CEFDINIR 300 MG CAPS 20020708 CEFDINIR Inactive AZITHROMYCIN 250 MG TABS 2 pills on day 1, then 1 pill daily x 4 days AZITHROMYCIN 250 MG TABS 374196 AZITHROMYCIN Inactive DOXYCYCLINE HYCLATE 100 MG CAP 1 cap by mouth twice daily DOXYCYCLINE HYCLATE 100 MG CAP 7228396 DOXYCYCLINE HYCLATE Inactive FUROSEMIDE 20 MG TABS 1 pill by mouth daily, for edema FUROSEMIDE 20 MG TABS 687860 FUROSEMIDE Inactive AZITHROMYCIN 250 MG TABS 2 po qd x 1 day, then 1 po qd x 4 days AZITHROMYCIN 250 MG TABS 114110 AZITHROMYCIN Inactive CEFTIN 500 MG TAB 1 twice a day CEFTIN 500 MG TAB 803805 CEFUROXIME AXETIL Inactive CEFDINIR 300 MG CAPS [...] for 2 days PREDNISONE 20 MG TAB 158679 PREDNISONE Inactive PREDNISONE 20 MG TAB take 3 tabs daily for 3 days, 2 tabs daily for 3 days, 1 tab daily for 3 days, 1/2 tab daily for 3 days PREDNISONE 20 MG TAB 048550 PREDNISONE Inactive BACTRIM DS 800-160 MG TAB 1 tab by mouth twice daily BACTRIM DS 800-160 MG TAB 114086 TRIMETHOPRIM-SULFAMETHOXAZOLE Inactive Immunizations Vaccine Administration Date Value Standard Description Seasonal influenza vaccine, injectable, containing preservative, for > 3 years old (Afluria, FluLaval, Fluzone, Fluvirin, Fluarix, Agriflu(>=18 yo)) Fluzone (>3 yrs.) [CKE090] Influenza, seasonal, injectable influenza immunization (Flu Vax) has been administered Influenza - Unspecified Formulation [CVX88] influenza virus vaccine, unspecified formulation Seasonal influenza vaccine, injectable, containing preservative, for > 3 years old (Afluria, FluLaval, Fluzone, Fluvirin, Fluarix, Agriflu(>=18 yo)) Fluzone (>3 yrs.) [MLW309] Influenza, seasonal, injectable pneumococcal immunization administered Pneumovax 23 [CVX33] pneumococcal polysaccharide vaccine, 23 valent dT (Diphtheria and Tetanus) booster given given Td(adult) unspecified formulation Boostrix (Tetanus toxoid, reduced diphtheria toxoid and acellular pertussis vaccine, adsorbed), booster Boostrix [HBW735] tetanus toxoid, reduced diphtheria toxoid, and acellular pertussis vaccine, adsorbed Vital Signs Date Name Value Unit Range Description blood pressure, diastolic 76 mm[Hg] BP weldon blood pressure, systolic 152 mm[Hg] BP sys height E&M 52.5 [in_us] Bdy height pulse rate E&M 52 /min Heart rate temperature E&M 98.3 [degF] Body temperature weight E&M 249 [lb_av] Weight Measured blood pressure, diastolic 85 mm[Hg] BP weldon blood pressure, systolic 138 mm[Hg] BP sys height E&M 52.5 [in_us] Bdy height pulse rate E&M 48 /min Heart rate temperature E&M 97.0 [degF] Body temperature weight E&M 250.5 [lb_av] Weight Measured blood pressure, diastolic 68 mm[Hg] BP weldon blood pressure, systolic 137 mm[Hg] BP sys height E&M 52.5 [in_us] Bdy height pulse rate E&M 65 /min Heart rate temperature E&M 97.8 [degF] Body temperature weight E&M 249.5 [lb_av] Weight Measured blood pressure, diastolic 88 mm[Hg] BP weldon blood pressure, systolic 154 mm[Hg] BP sys [...] PANEL - Chemistry cholesterol, serum 166 mg/dL [phone]/12/06 triglyceride, serum, fasting 86 mg/dL 30-200 HDL [...] negative Encounters Code Encounter Date Provider Facility CPT-22891 Level 3 Est. Patient 17:32:14 CDT [facility] Level 3 Est. Patient 10:28:15 CDT Tisha Lambert [facility] CPT-09968 Level 3 Est. Patient 14:50:29 CDT [facility] CPT-33223 Level 3 Est. Patient 14:46:09 CDT Tisha Lambert [facility] CPT-78979 Level 4 New Patient 16:13:15 CDT [facility] CPT-40916 Level 4 Est. Patient 13:18:33 CDT [facility] CPT-18123 Level 3 Est. Patient 15:20:50 CDT Jared Og [facility] CPT-94686 Level 3 Est. Patient 17:43:55 TRACK MECHANIC [facility] CPT-01768 Level 3 Est. Patient 17:07:49 TRACK MECHANIC Jared [facility] CPT-37371 Level 4 Est. Patient 19:55:18 TRACK MECHANIC Jared [facility] CPT-01646 Level 3 Est. Patient 20:13:34 TRACK MECHANIC Jared [facility] CPT-02641 Level 4 Est. Patient 16:31:27 CDT [facility] CPT-16148 Level 2 Est. Patient 12:23:38 CDT [facility] CPT-06961 Level 3 Est. Patient 11:01:51 CDT [facility] CPT-75903 Level 3 Est. Patient 15:27:02 CDT Jared Og MD [facility] CPT-83077 Level 4 Est. Patient 09:25:27 CDT [facility] CPT-93586 Level 3 Est. Patient 10:29:41 CDT Rodrigo Sarah [facility] [place]-97892 Level 4 Est. Patient 17:51:05 CDT Gab Padron MD -80547 Level 3 Est. Patient 14:18:08 CDT Gab Padron MD -17824 Level 4 Est. Patient 10:18:54 CDT Gab Padron MD -26125 Level 3 Est. Patient 11:30:07 CDT Rodrigo Sarah [facility]-05150 Level 4 Est. Patient 21:02:30 TRACK MECHANIC Gab Padron MD -56003 Level 3 Est. Patient 11:02:19 TRACK MECHANIC Gab Padron MD [facility]-39489 Level 4 Est. Patient 22:24:31 TRACK MECHANIC Gab Padron MD [facility]-60640 Level 3 Est. Patient 18:33:46 TRACK MECHANIC Gab Padron MD [facility]-77532 Level 3 Est. Patient 16:19:11 CDT Yolande Lindsay MD [facility]-87502 Level 3 Est. Patient 18:59:14 CDT Yolande Lindsay MD [facility]-14381 Level 4 Est. Patient 21:29:26 CDT Yolande Lindsay MD [facility]-33133 Level 3 Est. Patient 07:37:45 CDT Yolande Lindsay MD [facility]-58566 Level 3 Est. Patient 17:03:46 CDT Yolande Lindsay MD [facility]-76293 Level 4 Est. Patient 20:02:13 TRACK MECHANIC Yolande Lindsay MD [facility] CPT-41355 Level 3 Est. Patient 16:02:07 TRACK MECHANIC Alexis Ordaz MD [facility] CPT-40604 Level 3 Est. Patient 12:41:24 TRACK MECHANIC Yolande Lindsay MD [facility]-11171 Level 3 Est. Patient 15:41:20 TRACK MECHANIC Yolande Lindsay MD [facility]-23896 Level 3 Est. Patient 13:20:02 TRACK MECHANIC Yolande Lindsay MD [facility] CPT-38303 Level 3 Est. Patient 15:00:38 CDT Jared Og MD -29414 Level 3 Est. Patient 10:22:32 CDT Yolande Lindsay MD [facility]-47185 Level 3 Est. Patient 17:12:58 CDT Yolande Lindsay MD [facility] CPT-39124 Level 4 Est. Patient 13:30:58 CDT Yolande Lindsay MD [facility] CPT-46699 Level 4 New Patient 09:02:42 CDT Jared Og MD -24190 Level 3 Est. Patient 08:19:07 CDT Yolande Lindsay MD [facility] CPT-67421 Level 3 Est. Patient 12:00:13 TRACK MECHANIC Gab Padron MD [facility] CPT-12893 Level 3 Est. Patient 16:15:23 TRACK MECHANIC Yolande Lindsay MD [facility] CPT-57684 Level 2 Est. Patient 19:47:15 CDT Yolande Lindsay MD [facility]-52679 Level 3 Est. Patient 21:38:31 CDT Yolande Lindsay MD [facility]-33356 Level 3 Est. Patient 10:25:12 CDT Adiel PERAZA [facility] CPT-36832 Level 4 Est. Patient 10:51:58 CDT Yolande Lindsay MD [facility]-69623 Level 3 Est. Patient 14:04:55 TRACK MECHANIC Rodrigo Sarah [facility]-36197 Level 3 Est. Patient 10:46:35 TRACK MECHANIC Rodrigo Sarah [facility]-81142 Level 3 Est. Patient 14:24:37 TRACK MECHANIC Yolande Lindsay MD [facility]-40414 Level 3 Est. Patient 17:41:58 TRACK MECHANIC Yolande Lindsay MD [facility]-62288 Level 2 Est. Patient 22:01:41 TRACK MECHANIC Rodrigo Sarah [facility]-62200 Level 2 Est. Patient 22:01:11 TRACK MECHANIC Rodrigo Sarah [facility] CPT-92734 Level 3 Est. Patient 10:12:29 TRACK MECHANIC Rodrigo Sarah [facility]-28744 Level 3 Est. Patient 11:05:44 CDT Alexis Ordaz MD [facility]-55252 Level 3 Est. Patient 14:57:20 CDT Yolande Lindsay MD [facility]-81436 Level 3 Est. Patient 14:40:57 CDT Yolande Lindsay MD [facility]-10357 Level 3 Est. Patient 20:55:40 CDT Yolande Lindsay MD [facility]-19349 Level 3 Est. Patient 12:42:38 TRACK MECHANIC Yolande Lindsay MD [facility]-09631 Level 3 Est. Patient 11:54:49 TRACK MECHANIC Des Hines MD [facility] CPT-33873 Level 3 Est. Patient 17:06:38 CDT Dewayne PERAZA [facility] Procedures Code Procedure Name Date Entry Date Standard Description CPT-J2930 Solu Medrol 125 mg (Methyl Prednisolone Sodium Succinate) 13:19:02 CDT CPT-56414 Abx/Therapy Injection 13:19:02 CDT CPT-J2930 Solu Medrol 125 mg (Methyl Prednisolone Sodium Succinate) 13:05:03 CDT CPT-82448 Hip, complete, 2-3 views - XRAY USE ONLY 17:19:04 TRACK MECHANIC CPT-30701 Venipuncture Draw Fee 08:37:59 TRACK MECHANIC CPT-68671 Liver Profile - LAB USE ONLY 08:37:59 TRACK MECHANIC CPT-23153 Lipid - LAB USE ONLY 08:37:58 TRACK MECHANIC CPT-07613 First Vx - Ix admin via ID IM or jet injects without counseling by physician 11:52:31 CDT CPT-42468 Fluzone Preservative Free Intramuscular Suspension 11:52 :31 CDT CPT-59099 Foot, left, comp min 3V - XRAY USE ONLY 09:24:54 CDT CPT-27369 Abd single AP View - XRAY USE ONLY 11:16:17 CDT CPT-71895 T spine AP/ Lat - XRAY USE ONLY 09:34:21 CDT CPT-00439 Chest 2V Frontal and Lat - XRAY USE ONLY 10:48:51 CDT CPT-31477 LS spine comp w obliq 13:28:00 TRACK MECHANIC CPT-J1040 Depo Medrol 80 mg (Methyl Prednisolone Acetate) 10:51: 28 TRACK MECHANIC CPT-J1100 Decadron 8mg (Dexamethasone) 10:51:28 TRACK MECHANIC CPT-04832 Abx/Therapy Injection 10:51:28 TRACK MECHANIC CPT-J1100 Decadron 8mg (Dexamethasone) 21:02:30 TRACK MECHANIC CPT-J1040 Depo Medrol 80 mg (Methyl Prednisolone Acetate) 21:02: 30 TRACK MECHANIC [id number] Event Monitor - [facility] Transmission 09:12:32 CDT 08/06 [id number] Event Monitor - [facility] review and interp 09:12:32 CDT [id number] Event Monitor - MC recording 09:12:32 CDT CPT-91796 EKG Trac and Interp 16:50:22 CDT CPT-J1030 Depo Medrol 40 mg (Methyl Prednisolone Acetate) 17:05: 54 CDT CPT-J1100 Decadron 4mg (Dexamethasone) 17:05:54 CDT CPT-62074 Abx/Therapy Injection 17:05:54 CDT CPT-J1100 Decadron 4mg (Dexamethasone) 16:55:28 CDT CPT-J1030 Depo Medrol 40 mg (Methyl Prednisolone Acetate) 16:55: 28 CDT CPT-89139 Ankle Complete - Min 3V 15:58:50 CDT CPT-99835 Knee 3V 15:58:50 CDT CPT-45771 Hip comp min 2V 15:58:50 CDT CPT-J2270 Morphine Sulfate 10 mg 14:25:44 TRACK MECHANIC CPT-J2550 Phenergan 12.5 mg (Promethazine) 14:25:44 TRACK MECHANIC CPT-95610 Abx/Therapy Injection 14:25:44 TRACK MECHANIC CPT-J2550 Phenergan 12.5 mg (Promethazine) 14:08:03 TRACK MECHANIC CPT-J2270 Morphine Sulfate 10 mg 14:08:03 TRACK MECHANIC CPT-70892 Bladder Scan 15:00:38 CDT CPT-TCMM Transitional Care Mgmt-Moderate 09:52:22 CDT CPT-J1030 Depo Medrol 40 mg (Methyl Prednisolone Acetate) 10:55: 18 CDT CPT-J1100 Decadron 4mg (Dexamethasone) 10:55:18 CDT CPT-88153 Abx/Therapy Injection 10:55:18 CDT CPT-J1030 Depo Medrol 40 mg (Methyl Prednisolone Acetate) 10:22: 32 CDT CPT-J1100 Decadron 4mg (Dexamethasone) 10:22:32 CDT CPT-40363 Postop F/U Visit 14:37:13 CDT CPT-23956 Ankle Complete - Min 3V 17:11:58 CDT CPT-09440 Foot comp min 3V 17:11:58 CDT CPT-16511 Bladder Scan 09:56:58 CDT CPT-32127 Postop F/U Visit 09:56:58 CDT CPT-61462 Cystoscopy 09:02:42 CDT CPT-12846 Bladder Scan 09:02:42 CDT CPT-58163 Abd single AP View 16:00:35 CDT CPT-97524 Administration single or combination vaccine inc oral 10 :15:43 CDT CPT-97903 Influenza split virus > age 3 10:15:43 CDT CPT-71943 Nail Avulsion 09:24:57 CDT CPT-OV Office Visit 11:15:41 CDT CPT-47877 Abx/Therapy Injection 10:51:30 CDT CPT-J3301 Kenalog 40 mg (Triamcinolone Acetonide) 10:25:12 CDT CPT-J1100 Decadron 4mg (Dexamethasone) 10:25:12 CDT CPT-71097 Anoscopy diagnostic 10:36:12 CDT CPT-OV Office Visit 15:34:31 CDT CPT-87321 Abx/Therapy Injection 08:21:15 TRACK MECHANIC CPT-J1885 Toradol 60 mg (Ketorolac) 10:46:35 TRACK MECHANIC CPT-OV Office Visit 19:51:16 TRACK MECHANIC CPT-72068 Spec Collection and Handling Fee 14:34:18 TRACK MECHANIC CPT-PV Prev. Care Visit 14:19:18 TRACK MECHANIC CPT-04792 Postop F/U Visit 14:47:51 TRACK MECHANIC CPT-20805 Postop F/U Visit 15:15:14 TRACK MECHANIC CPT-30513 Postop F/U Visit 14:41:43 CDT CPT-53061 Postop F/U Visit 15:47:46 CDT CPT-OV Office Visit 15:27:23 CDT CPT-OV Office Visit 17:20:34 CDT CPT-20985 Abx/Therapy Injection 15:05:57 CDT CPT-J1100 Decadron 8mg (Dexamethasone) 14:44:57 CDT CPT-J1040 Depo Medrol 80 mg (Methyl Prednisolone Acetate) 14:44: 57 CDT CPT-JTINJ Joint Injection 10:17:37 CDT CPT-87950 Administration 2+ single or combination vaccines inc oral 13:01:46 TRACK MECHANIC CPT-88735 Administration single or combination vaccine inc oral 13 :01:46 TRACK MECHANIC CPT-81775 Pneumovax 13:01:46 TRACK MECHANIC CPT-84221 Influenza split virus > age 3 13:01:46 TRACK MECHANIC CPT-38106 Administration single or combination vaccine inc oral 08 :56:49 CDT CPT-08142 Tdap 08:56:49 CDT
--- OUTSIDE RECORDS SUMMARY | 2017-03-21 20:02 | XMS REPORT | Clinical Summary ---
Author Author Admin, MARGRET Organization [employer] Address Unknown Phone Unavailable Allergies, Adverse Reactions, Alerts Allergy Name Reaction Description Start Date Severity Status Provider VALENTIN Critical Active Rodrigo Montemayorl SUBSTATION OPERATOR CONVERSION CHLORHEXIDINE GLUCONATE tongue and gums swollen Critical Active Hoa Clarita RMA NORFLEX Rash Critical Active Silvestrellina Frazell SUBSTATION OPERATOR CONVERSION TRAZODONE HCL sees things Critical Active Dewayne [...] infarction, hx of 412 Active Hoa Otto [facility] Old myocardial infarction Pelvic pain 789.09 Active Yolande Lindsay MD PhD Abdominal pain, other specified site; multiple sites Edema 782.3 Active Yolande Lindsay MD PhD Edema Rash 782.1 Active Yolande Lindsay MD PhD Rash and other nonspecific skin eruption Back pain, lumbar 724.2 Active Gab Padron MD Lumbago Cough 786.2 Active Jillina Tyrel SUBSTATION OPERATOR CONVERSION Cough 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 Jillina Frazellilian SUBSTATION OPERATOR CONVERSION 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 Anemia 285.9 Active Gab Padron MD Anemia, unspecified Conjunctivitis 372.30 Active Jillina Tyrel SUBSTATION OPERATOR CONVERSION Conjunctivitis, unspecified Sinusitis 473.9 Active Jillina Frazell SUBSTATION OPERATOR CONVERSION Unspecified sinusitis (chronic) Nonspecific syndrome suggestive of viral illness 079.99 Active Rodrigo Sarah SUBSTATION OPERATOR CONVERSION Unspecified viral infection Laryngitis 464.00 Active Silvestrellnacho Sarah SUBSTATION OPERATOR CONVERSION Acute laryngitis without mention of obstruction Abdominal [...] Back pain, thoracic region, left 724.1 Active Rodrigo Sarah APRN Pain in thoracic spine FOOT PAIN, RIGHT [...] TBDP 1 po q6hr PRN Nausea ONDANSETRON 15677511709 Active Jillina Frazell SUBSTATION OPERATOR CONVERSION Active IBUPROFEN 600 MG TAB 1 tablet by mouth every 6 hours for 7 days, then 1 tablet every 6 hours as needed. Take with food IBUPROFEN 80656315352 Active Jillina Frazell SUBSTATION OPERATOR CONVERSION Active BACTRIM DS 800-160 MG TAB 1 tab by mouth twice daily TRIMETHOPRIM-SULFAMETHOXAZOLE 04856322911 No Longer Active Gab Padron MD Active ADVAIR DISKUS 250-50 MCG/DOSE AEPB 1 puff BID FLUTICASONE- SALMETEROL 15118095543 Active Jillina Frazell SUBSTATION OPERATOR CONVERSION Active LEVOTHYROXINE SODIUM 75 MCG TABS Take 1 tab daily LEVOTHYROXINE SODIUM 16599701639 No Longer Active Mariana FLEMING Active SYNTHROID 88 MCG ORAL TABS Take one by mouth daily LEVOTHYROXINE SODIUM 58531633193 Active Mariana Cuadra RMA Active CHERATUSSIN AC 100-10 MG/5ML SYRP 1 tsp by mouth every 4 hours as needed for cough GUAIFENESIN-CODEINE 57459981878 No Longer Active Gab Padron MD Active POLYTRIM 23672-1.1 UNIT/ML-% SOLN 1 gtt to affected eye q3h x 7 days POLYMYXIN B-TRIMETHOPRIM 87529084521 No Longer Active Gab Padron MD Active FLUTICASONE PROPIONATE 50 MCG/ACT SUSP 1 to 2 sprays each nostril daily 04/21 FLUTICASONE PROPIONATE 00305449084 No Longer Active Gab Padron MD Active TRILEPTAL 600 MG TABS Take one 1 tablet in Am and 1 tablet at night OXCARBAZEPINE 86251110436 Active Gab Padron MD Active CEFDINIR 300 MG CAPS 1 po BID x 10 days CEFDINIR 46780940139 No Longer Active Rodrigo Sarah APRN Active CEFTIN 500 MG TAB 1 twice a day CEFUROXIME AXETIL 11413256169 No Longer Active Gab Padron MD Active AZITHROMYCIN 250 MG TABS 2 po qd x 1 day, then 1 po qd x 4 days AZITHROMYCIN 37133461374 No Longer Active Rodrigo Sarah APRN Active CLARITIN 10 MG TAB 1 tablet by mouth daily as needed for allergies LORATADINE 04387339438 Active Rodrigo Sarah APRN Active OXYCODONE HCL 5 MG ORAL CAPS 1 TAB PO Q HS OXYCODONE HCL 62276217810 No Longer Active Rodrigo Sarah APRN Active NIASPAN 500 MG ORAL CR-TABS 1 pill nightly x 1 week, then 2 pills nightly x 1 week, then 3 pills nightly x 1 week, then 4 pills nightly NIACIN (ANTIHYPERLIPIDEMIC) 45666029912 No Longer Active Silvestrellnacho Sarah APRN Active NIACIN 500 MG TABS 1 pill by mouth nightly x 1 week, then 2 pills x 1 week, then 3 pills x 1 week, then 4 pills nightly - take after evening meal, with applesauce or an apple NIACIN 98903210205 No Longer Active Yolande Lindsay MD PhD Active FISH OIL 1000 MG CAPS 3 pills daily OMEGA-3 FATTY ACIDS 03545239674 Active Yolande Lindsay MD PhD Active TRIAMCINOLONE ACETONIDE 0.1 % CREA apply bid sparingly to rash TRIAMCINOLONE ACETONIDE 72139703946 Active Yolande Lindsay MD PhD Active FUROSEMIDE 20 MG TAB 1 tablet by mouth daily FUROSEMIDE 30634878743 Active Tisha Lambert APRN Active LISINOPRIL 20 MG ORAL TABS 1 tab by mouth daily LISINOPRIL 88483851346 Active Gab Padron MD Active FUROSEMIDE 20 MG TABS 1 pill by mouth daily, for edema FUROSEMIDE 28049318843 No Longer Active Yolande Lindsay MD PhD Active ATORVASTATIN CALCIUM 10 MG TABS 1 pill by mouth daily, for cholesterol 09/06 ATORVASTATIN CALCIUM 94911957163 Active Gab Padron MD Active CALCIUM 600+D PLUS MINERALS 600-400 MG-UNIT ORAL CHEW 1 tab by mouth daily CALCIUM CARBONATE-VIT D-MIN 85754499783 No Longer Active Yolande Lindsay MD PhD Active CYCLOBENZAPRINE HCL 10 MG TABS 1 tablet by mouth three times daily as needed for muscle spasm/pain CYCLOBENZAPRINE HCL 89010370490 Active Yolande Lindsay MD PhD Active ONDANSETRON 4 MG TBDP 1 q4h PRN nausea ONDANSETRON 09410327730 Active Yolande Lindsay MD PhD Active ADULT ASPIRIN EC LOW STRENGTH 81 MG TBEC Take 1 tablet by mouth daily 2014 ASPIRIN 74388012374 No Longer Active Yolande Lindsay MD PhD Active ZOFRAN ODT 4 MG TBDP 1 pill dissolved by mouth every 4 hours if needed for nausea ONDANSETRON 79467660998 No Longer Active Yolande Lindsay MD PhD Active CEFTIN 500 MG TAB 1 twice a day CEFUROXIME AXETIL 14529826881 No Longer Active Yolande Lindsay MD PhD Active ALBUTEROL SULFATE 0.083 % NEBU SOLN one vial per nebulizer every 4-6 hours as needed ALBUTEROL SULFATE 46882293519 No Longer Active Alexis Ordaz MD Active DOXYCYCLINE HYCLATE 100 MG CAP 1 cap by mouth twice daily DOXYCYCLINE HYCLATE 01805508696 No Longer Active Yolande Lindsay MD PhD Active CYCLOBENZAPRINE HCL 10 MG TABS 1/2 - 1 tab by mouth three times daily if needed for spasms/pain CYCLOBENZAPRINE HCL 38763253874 No Longer Active Yolande Lindsay MD PhD Active AZITHROMYCIN 250 MG TABS 2 pills on day 1, then 1 pill daily x 4 days AZITHROMYCIN 91641911661 No Longer Active Yolande Lindsay MD PhD Active XOPENEX 1.25 MG/3ML NEBU 1 neb every 4 hours if needed for cough/congestion LEVALBUTEROL HCL 34620557010 No Longer Active Yolande Lindsay MD PhD Active DOXYCYCLINE HYCLATE 100 MG TAB 1 tab twice a day for 14 days 2013 DOXYCYCLINE HYCLATE 12598212150 No Longer Active Yolande Lindsay MD PhD Active PREVACID 30 MG CPDR Take 1 tablet by mouth daily-PRN LANSOPRAZOLE 14464468818 No Longer Active Yolande Lindsay MD PhD Active PA VITAMIN D-3 2000 UNIT CAPS 1 CAP PO DAILY CHOLECALCIFEROL 74273897555 No Longer Active Yolande Lindsay MD PhD Active CEFDINIR 300 MG CAPS by mouth twice a day CEFDINIR 57845848471 No Longer Active Gab Padron MD Active TOPAMAX 50 MG TABS 1 PO twice daily TOPIRAMATE 99052656208 Active Yolande Lindsay MD PhD Active AZITHROMYCIN 250 MG TABS 2 po qd x 1 day, then 1 po qd x 4 days AZITHROMYCIN 34679783566 No Longer Active Yolande Lindsay MD PhD Active DICLOFENAC SODIUM 75 MG TBEC 1 tablet by q 12 hours PRN headaches DICLOFENAC SODIUM 76566001877 No Longer Active Yolande Lindsay MD PhD Active FLONASE 50 MCG/ACT SUSP 1 spray each nostril am and hs FLUTICASONE PROPIONATE 13688033112 No Longer Active Todd Callaway MD Active ANUSOL-HC 25 MG SUPPOSITORY 1 rectally twice a day as needed for hemorrhoids HYDROCORTISONE JAYDEN (RECTAL) 16487004435 No Longer Active Yolande Lindsay MD PhD Active ANUSOL-HC 25 MG SUPPOSITORY 1 suppository rectally each evening as needed for anal fissure HYDROCORTISONE JAYDEN (RECTAL) 62788683044 No Longer Active LONNIE Iglesias Active VALIUM 5 MG TAB 1 po 30 minutes prior to your MRI DIAZEPAM 47354542049 No Longer Active LONNIE Iglesias Active METHOCARBAMOL 750 MG TABS 1 PO QID PRN METHOCARBAMOL 23310253236 No Longer Active Daphne Wetzel SUBSTATION OPERATOR CONVERSION Active NITROSTAT 0.4 MG SUBL as directed NITROGLYCERIN 87788683221 No Longer Active Rodrigo Sarah APRN Active ROBAXIN-750 750 MG TABS 2 four times a day for 3 days as needed for muscle spasm, then 1 four times a day as needed METHOCARBAMOL 09918141966 No Longer Active Rodrigo Sarah APRN Active HYDROCODONE-ACETAMINOPHEN 5-325 MG TABS 1 q 4-6 hrs prn HYDROCODONE-ACETAMINOPHEN 54972387589 No Longer Active Silvestrellnacho Sarah APRN Active VERAPAMIL HCL CR 180 MG CR-TABS TAKE 1 TAB DAILY VERAPAMIL HCL 01835861532 No Longer Active Yolande Lindsay MD PhD Active BACTRIM DS 800-160 MG TAB 1 tab by mouth twice daily TRIMETHOPRIM-SULFAMETHOXAZOLE 29266961613 No Longer Active Yolande Lindsay MD PhD Active NEXIUM 40 MG PACK 1 by mouth daily ESOMEPRAZOLE MAGNESIUM 78958980241 No Longer Active Des Hines MD Active EPIPEN 2-CHARLETTE 0.3 MG/0.3ML OMARI as need for allergic reaction EPINEPHRINE 25323878795 Active Yolande Lindsay MD PhD Active NEXIUM 40 MG CPDR 1 PO Q D DAY ESOMEPRAZOLE MAGNESIUM 96971696093 No Longer Active Sadia Orlando RN Active NEXIUM 40 MG PACK 1 by mouth daily NEXIUM 40 MG PACK ESOMEPRAZOLE MAGNESIUM Inactive VERAPAMIL HCL CR 180 MG CR-TABS TAKE 1 TAB DAILY VERAPAMIL HCL CR 180 MG CR-TABS VERAPAMIL HCL Inactive HYDROCODONE-ACETAMINOPHEN 5-325 MG TABS 1 q 4-6 hrs prn HYDROCODONE-ACETAMINOPHEN 5-325 MG TABS 941202 HYDROCODONE-ACETAMINOPHEN Inactive ROBAXIN-750 750 MG TABS 2 four times a day for 3 days as needed for muscle spasm, then 1 four times a day as needed ROBAXIN-750 750 MG TABS 928922 METHOCARBAMOL Inactive NITROSTAT 0.4 MG SUBL as directed NITROSTAT 0.4 MG SUBL NITROGLYCERIN Inactive METHOCARBAMOL 750 MG TABS 1 PO QID PRN METHOCARBAMOL 750 MG TABS 812360 METHOCARBAMOL Inactive VALIUM 5 MG TAB 1 po 30 minutes prior to your MRI VALIUM 5 MG TAB 687232 DIAZEPAM Inactive ANUSOL-HC 25 MG SUPPOSITORY 1 suppository rectally each evening as needed for anal fissure ANUSOL-HC 25 MG SUPPOSITORY 9633333 HYDROCORTISONE JAYDEN (RECTAL) Inactive ANUSOL-HC 25 MG SUPPOSITORY 1 rectally twice a day as needed for hemorrhoids ANUSOL-HC 25 MG SUPPOSITORY 6999939 HYDROCORTISONE JAYDEN (RECTAL) Inactive FLONASE 50 MCG/ACT SUSP 1 spray each nostril am and hs FLONASE 50 MCG/ACT SUSP FLUTICASONE PROPIONATE Inactive DICLOFENAC SODIUM 75 MG TBEC 1 tablet by q 12 hours PRN headaches DICLOFENAC SODIUM 75 MG TBEC 142372 DICLOFENAC SODIUM Inactive PA VITAMIN D-3 2000 UNIT CAPS 1 CAP PO DAILY PA VITAMIN D-3 2000 UNIT CAPS CHOLECALCIFEROL Inactive PREVACID 30 MG CPDR Take 1 tablet by mouth daily-PRN PREVACID 30 MG CPDR 405804 LANSOPRAZOLE Inactive DOXYCYCLINE HYCLATE 100 MG TAB 1 tab twice a day for 14 days 2013 DOXYCYCLINE HYCLATE 100 MG TAB 3609686 DOXYCYCLINE HYCLATE Inactive XOPENEX 1.25 MG/3ML NEBU 1 neb every 4 hours if needed for cough/congestion XOPENEX 1.25 MG/3ML NEBU 928247 LEVALBUTEROL HCL Inactive CYCLOBENZAPRINE HCL 10 MG TABS 1/2 - 1 tab by mouth three times daily if needed for spasms/pain CYCLOBENZAPRINE HCL 10 MG TABS 831664 CYCLOBENZAPRINE HCL Inactive ALBUTEROL SULFATE 0.083 % NEBU SOLN one vial per nebulizer every 4-6 hours as needed ALBUTEROL SULFATE 0.083 % NEBU SOLN 953268 ALBUTEROL SULFATE Inactive CEFTIN 500 MG TAB 1 twice a day CEFTIN 500 MG TAB 254260 CEFUROXIME AXETIL Inactive ZOFRAN ODT 4 MG TBDP 1 pill dissolved by mouth every 4 hours if needed for nausea ZOFRAN ODT 4 MG TBDP 042786 ONDANSETRON Inactive ADULT ASPIRIN EC LOW STRENGTH 81 MG TBEC Take 1 tablet by mouth daily 2014 ADULT ASPIRIN EC LOW STRENGTH 81 MG TBEC 723421 ASPIRIN Inactive CALCIUM 600+D PLUS MINERALS 600-400 [...] or an apple NIACIN 500 MG TABS 712304 NIACIN Inactive NIASPAN 500 MG ORAL CR-TABS 1 pill nightly x 1 week, then 2 pills nightly x 1 week, then 3 pills nightly x 1 week, then 4 pills nightly NIASPAN 500 MG ORAL CR-TABS NIACIN (ANTIHYPERLIPIDEMIC) Inactive OXYCODONE HCL 5 MG ORAL CAPS 1 TAB PO Q HS OXYCODONE HCL 5 MG ORAL CAPS 6614939 OXYCODONE HCL Inactive FLUTICASONE PROPIONATE 50 MCG/ACT SUSP 1 to 2 sprays each nostril daily 04/21 FLUTICASONE PROPIONATE 50 MCG/ACT SUSP 022506 FLUTICASONE PROPIONATE Inactive POLYTRIM 82191-5.1 UNIT/ML-% SOLN 1 gtt to affected eye q3h x 7 days POLYTRIM 41245-8.1 UNIT/ML-% SOLN 466214 POLYMYXIN B- TRIMETHOPRIM Inactive CHERATUSSIN AC 100-10 MG/5ML SYRP 1 tsp by mouth every 4 hours as needed for cough CHERATUSSIN AC 100-10 MG/5ML SYRP 811819 GUAIFENESIN-CODEINE Inactive LEVOTHYROXINE SODIUM 75 MCG TABS Take 1 tab daily LEVOTHYROXINE SODIUM 75 MCG TABS 839646 LEVOTHYROXINE SODIUM Inactive BACTRIM DS 800-160 MG TAB 1 tab by mouth twice daily BACTRIM DS 800-160 MG TAB 334010 TRIMETHOPRIM-SULFAMETHOXAZOLE Inactive AZITHROMYCIN 250 MG TABS 2 po qd x 1 day, then 1 po qd x 4 days AZITHROMYCIN 250 MG TABS 7054249 AZITHROMYCIN Inactive CEFDINIR 300 MG CAPS by mouth twice a day CEFDINIR 300 MG CAPS 531204 CEFDINIR Inactive AZITHROMYCIN 250 MG TABS 2 pills on day 1, then 1 pill daily x 4 days AZITHROMYCIN 250 MG TABS 8346731 AZITHROMYCIN Inactive DOXYCYCLINE HYCLATE 100 MG CAP 1 cap by mouth twice daily DOXYCYCLINE HYCLATE 100 MG CAP 0871525 DOXYCYCLINE HYCLATE Inactive FUROSEMIDE 20 MG TABS 1 pill by mouth daily, for edema FUROSEMIDE 20 MG TABS 507911 FUROSEMIDE Inactive AZITHROMYCIN 250 MG TABS 2 po qd x 1 day, then 1 po qd x 4 days AZITHROMYCIN 250 MG TABS 7441878 AZITHROMYCIN Inactive CEFTIN 500 MG TAB 1 twice a day CEFTIN 500 MG TAB 535159 CEFUROXIME AXETIL Inactive CEFDINIR 300 MG CAPS 1 po BID x 10 days CEFDINIR 300 MG CAPS 203703 CEFDINIR Inactive BACTRIM DS 800-160 MG TAB 1 tab by mouth twice daily BACTRIM DS 800-160 MG TAB 776965 TRIMETHOPRIM-SULFAMETHOXAZOLE Inactive Immunizations Vaccine Administration Date Value Standard Description Seasonal influenza vaccine, injectable, containing preservative, for > 3 years old (Afluria, FluLaval, Fluzone, Fluvirin, Fluarix, Agriflu(>=18 yo)) Fluzone (>3 yrs.) [NDC919] Influenza, seasonal, injectable influenza immunization (Flu Vax) has been administered Influenza - Unspecified Formulation [CVX88] influenza virus vaccine, unspecified formulation Seasonal influenza vaccine, injectable, containing preservative, for > 3 years old (Afluria, FluLaval, Fluzone, Fluvirin, Fluarix, Agriflu(>=18 yo)) Fluzone (>3 yrs.) [IKA667] Influenza, seasonal, injectable pneumococcal immunization administered Pneumovax 23 [CVX33] pneumococcal polysaccharide vaccine, 23 valent dT (Diphtheria and Tetanus) booster given given Td(adult) unspecified formulation Boostrix (Tetanus toxoid, reduced diphtheria toxoid and acellular pertussis vaccine, adsorbed), booster Boostrix [TZG690] tetanus toxoid, reduced diphtheria toxoid, and acellular [...] pressure, diastolic - 8462-4 82 mm[Hg] BP weldno blood pressure, systolic - 8480-6 126 mm[Hg] [...] Panel - Chemistry sodium, serum 142 mmol/L 959-685 5949/06/30 potassium, serum 4.4 mmol/L 3.5-5.2 chloride, serum 108 mmol/L 98-107 carbon dioxide, venous blood 25.1 mmol/L 21.0-32.0 blood glucose 82 mg/dL 65-110 calcium, serum 9.1 mg/dL 8.5-10.1 urea nitrogen, blood 18 mg/dL 7-18 creatinine, serum 1.31 mg/dL 0.55-1.30 Lab Report: [facility] Advanced Lipid and Inlammation Panel /57994 - Chemistry cholesterol, serum 148 mg/dL 858-493 6347/09/02 HDL cholesterol, serum 55 mg/dL > OR=46 triglyceride, serum, fasting 67 mg/dL LDL cholesterol, serum 80 mg/dL cholesterol/HDL ratio, serum 2.7 calc < OR=5.0 Lab Report: CBC - Hematology mean corpuscular hemoglobin, RBC 26.5 pg 27.0-31.2 mean corpuscular hemoglobin concentration, RBC 31.6 G/DL % 31.8- 35.4 red blood cell distribution width 15.7 % 11.6-14.8 platelet count 224 10^3/MM^3 10*3/mm3 312-088 0136/12/30 mean corpuscular volume, RBC 84 fL 80-97 hematocrit, blood 33.7 % 36.0-46.0 hemoglobin, blood 10.7 g/dL 12.0-16.0 erythrocyte (RBC) count 4.03 10^6/MM^3 10*6/mm3 4.04-5.48 leukocyte count, blood 5.3 10^3/MM^3 10*3/mm3 4.6-10.2 Lab Report: CBC W/DIFF, RapidStrep Rflx/Cx, TIERA INFLUENZA A/B - Hematology erythrocyte (RBC) count 3.94 10^6/MM^3 10*6/mm3 4.04-5.48 hematocrit, blood 33.7 % 36.0-46.0 mean corpuscular volume, RBC 85 fL 80-97 mean corpuscular hemoglobin, RBC 27.7 pg 27.0-31.2 mean corpuscular hemoglobin concentration, RBC 32.4 G/DL % 31.8- 35.4 red blood cell distribution width 20.2 % 11.6-14.8 platelet count 179 10^3/MM^3 10*3/mm3 882-638 7548/03/24 hemoglobin, blood 10.9 g/dL 12.0-16.0 leukocyte count, blood 5.3 10^3/MM^3 10*3/mm3 4.6-10.2 neutrophils as percent of blood leukocytes 64.0 % 42.2-75.2 monocytes as percent of blood leukocytes 11.3 % 1.7-9.3 lymphocytes as percent of blood leukocytes 22.7 % 20.5-51.1 Lab Report: CBC W/DIFF, RapidStrep Rflx/Cx, TIERA INFLUENZA A/B - Lab Microbial identification kit, rapid strep method Negative-Throat Culture to Follow Negative Lab Report: CBC W/DIFF, RapidStrep Rflx/Cx, TIERA INFLUENZA A/B - Toxicology rapid flu test Negative Negative;Positive Lab Report: CBC, Comp. Metabolic Panel, Thyroid Stimulating Hormone (L) - Chemistry sodium, serum 145 mmol/L 814-191 6478/09/02 potassium, serum 4.6 mmol/L 3.5-5.2 chloride, serum [...] Rate - Chemistry sodium, serum 139 mmol/L 640-794 1895/03/24 creatinine, serum 1.35 mg/dL 0.55-1.30 alanine aminotransferase (SGPT), serum 33 U/L 12-78 aspartate aminotransferase (SGOT), serum 23 U/L 15-37 calcium, serum 8.3 mg/dL 8.5-10.1 bilirubin, serum, total 0.20 mg/dL 0.00-1.00 carbon dioxide, venous blood 22.4 mmol/L 21.0-32.0 potassium, serum 4.2 mmol/L 3.5-5.2 chloride, serum 105 mmol/L 98-107 blood glucose 90 mg/dL 65-110 urea nitrogen, blood 19 mg/dL 7-18 Lab Report: Comp. Metabolic Panel, UADIP W/MICRO, AUTO, Thyroid Stimulat ... - Chemistry TSH 0.63 m[iU]/mL 0.36-3.74 thyroxine, serum, free 0.80 ng/dL 0.76-1.46 RBC, urine, dipstick Negative Negative protein, total urine random Negative mg/dL Negative sodium, serum 143 mmol/L 441-592 9959/05/02 carbon dioxide, venous blood 25.6 mmol/L 21.0-32.0 potassium, serum 4.8 mmol/L 3.5-5.2 chloride, serum 108 mmol/L 98-107 blood glucose 70 mg/dL 65-110 urea nitrogen, blood 20 mg/dL 7-18 creatinine, serum 1.21 mg/dL 0.55-1.30 alanine aminotransferase (SGPT), serum 32 U/L -78 aspartate aminotransferase (SGOT), serum 18 U/L 15-37 calcium, serum 8.5 mg/dL 8.5-10.1 bilirubin, serum, total 0.30 mg/dL 0.00-1.00 Lab Report: Comp. Metabolic Panel, UADIP W/MICRO, AUTO, Thyroid Stimulat ... - Urinalysis urine color Yellow Colorless;Lightyellow;Straw;Yellow appearance, urine Clear Clear specific gravity, urine 1.015 1.000-1.030 pH, urine, semiquantitative 6.5 5.0-8.5 glucose, urine, semiquantitative Negative Negative ketones, urine, by test strip Negative Negative bilirubin, urine Negative Negative urobilinogen, urine, semiquantitative (dipstick) 0.2 Normal leukocyte esterase, urine, by dipstick Negative Negative nitrite, urine, semiquantitative Negative Negative Lab Report: TIERA INFLUENZA A/B - Toxicology rapid flu test Negative Negative;Positive Lab Report: Thyroid Stimulating Hormone (L), Free Thyroxine (L) - Chemistry TSH 1.08 m[iU]/mL 0.36-3.74 thyroxine, serum, free 0.75 ng/dL 0.76-1.46 Lab Report: UADIP W/MICRO, AUTO, CBC W/DIFF, Comp. Metabolic Panel - Chemistry protein, total urine random Negative mg/dL Negative RBC, urine, dipstick Negative Negative sodium, serum 142 mmol/L 016-063 7842/07/18 carbon dioxide, venous blood 27.8 mmol/L 21.0-32.0 [...] 5.0-8.5 Office Visit: 3 MO F/U - Chemistry [...] mg/dL Encounters Code Encounter Date Provider Facility CPT-53140 Level 3 Est. Patient 10:29:41 CDT Rodrigo Sarah [facility] CPT-71339 Level 4 Est. Patient 17:51:05 CDT Gab Padron MD [facility] CPT-22891 Level 3 Est. Patient 14:18:08 CDT Gab Padron MD [facility] CPT-16233 Level 4 Est. Patient 10:18:54 CDT Gab Padron MD [facility] CPT-16467 Level 3 Est. Patient 11:30:07 CDT Rodrigo Sarah [facility] CPT-75854 Level 4 Est. Patient 21:02:30 ADVERTISING CLERK Gab Padron MD [facility] CPT-57863 Level 3 Est. Patient 11:02:19 ADVERTISING CLERK Gab Padron MD [facility] CPT-56572 Level 4 Est. Patient 22:24:31 ADVERTISING CLERK Gab Padron MD [facility] CPT-27939 Level 3 Est. Patient 18:33:46 ADVERTISING CLERK Gab Padron MD [facility] CPT-05595 Level 3 Est. Patient 16:19:11 CDT Yolande Lindsay MD [facility]-60977 Level 3 Est. Patient 18:59:14 CDT Yolande Lindsay MD [facility]-25047 Level 4 Est. Patient 21:29:26 CDT Yolande Lindsay MD [facility]-80005 Level 3 Est. Patient 07:37:45 CDT Yolande Lindsay MD [facility]-28368 Level 3 Est. Patient 17:03:46 CDT Yolande Lindsay MD [facility]-44487 Level 4 Est. Patient 20:02:13 ADVERTISING CLERK Yolande Lindsay MD [facility]-03507 Level 3 Est. Patient 16:02:07 ADVERTISING CLERK Alexis Ordaz MD [facility]-88946 Level 3 Est. Patient 12:41:24 ADVERTISING CLERK Yolande Lindsay MD [facility]-87348 Level 3 Est. Patient 15:41:20 ADVERTISING CLERK Yolande Lindsay MD [facility]-33434 Level 3 Est. Patient 13:20:02 ADVERTISING CLERK Yolande Lindsay MD [facility]-73978 Level 3 Est. Patient 15:00:38 CDT Jared Og MD [facility]-23100 Level 3 Est. Patient 10:22:32 CDT Yolande Lindsay MD [facility]-11611 Level 3 Est. Patient 17:12:58 CDT Yolande Lindsay MD [facility]-84463 Level 4 Est. Patient 13:30:58 CDT Yolande Lindsay MD [facility]-43865 Level 4 New Patient 09:02:42 CDT Jared Og MD [facility]-12832 Level 3 Est. Patient 08:19:07 CDT Yolande Lindsay MD [facility]-39719 Level 3 Est. Patient 12:00:13 ADVERTISING CLERK Gab Padron MD [facility]-85625 Level 3 Est. Patient 16:15:23 ADVERTISING CLERK Yolande Lindsay MD [facility]00176 Level 2 Est. Patient 19:47:15 CDT Yolande Lindsay MD [facility]83067 Level 3 Est. Patient 21:38:31 CDT Yolande Lindsay MD [facility]09140 Level 3 Est. Patient 10:25:12 CDT Adiel PERAZA [facility]-02850 Level 4 Est. Patient 10:51:58 CDT Yolande Lindsay MD [facility]-09987 Level 3 Est. Patient 14:04:55 ADVERTISING CLERK Rodrigo Sarah [facility]-27538 Level 3 Est. Patient 10:46:35 ADVERTISING CLERK Rodrigo Sarah [facility]-37944 Level 3 Est. Patient 14:24:37 ADVERTISING CLERK Yolande Lindsay MD [facility]17623 Level 3 Est. Patient 17:41:58 ADVERTISING CLERK Yolande Lindsay MD [facility]83867 Level 2 Est. Patient 22:01:41 ADVERTISING CLERK Rodrigo Sarah [facility]-90202 Level 2 Est. Patient 22:01:11 ADVERTISING CLERK Rodrigo Sarah [facility]-60648 Level 3 Est. Patient 10:12:29 ADVERTISING CLERK Rodrigo Sarah [facility]-56736 Level 3 Est. Patient 11:05:44 CDT Alexis Ordaz MD [facility] CPT-23663 Level 3 Est. Patient 14:57:20 CDT Yolande Lindsay MD [facility] CPT-73913 Level 3 Est. Patient 14:40:57 CDT Yolande Lindsay MD [facility] CPT-83931 Level 3 Est. Patient 20:55:40 CDT Yolande Lindsay MD [facility] [place] CPT-42019 Level 3 Est. Patient 12:42:38 ADVERTISING CLERK Yolande Lindsay MD [facility] CPT-44443 Level 3 Est. Patient 11:54:49 ADVERTISING CLERK Des Hines MD [facility] CPT-65153 Level 3 Est. Patient 17:06:38 CDT Dewayne PERAZA [facility] Procedures Code Procedure Name Date Entry Date Standard Description CPT-96079 Chest 2V Frontal and Lat - XRAY USE ONLY 10:48:51 CDT CPT-68869 LS spine comp w obliq 13:28:00 ADVERTISING CLERK CPT-J1040 Depo Medrol 80 mg (Methyl Prednisolone Acetate) 10:51: 28 ADVERTISING CLERK CPT-J1100 Decadron 8mg (Dexamethasone) 10:51:28 ADVERTISING CLERK CPT-57946 Abx/Therapy Injection 10:51:28 ADVERTISING CLERK CPT-J1100 Decadron 8mg (Dexamethasone) 21:02:30 ADVERTISING CLERK CPT-J1040 Depo Medrol 80 mg (Methyl Prednisolone Acetate) 21:02: 30 ADVERTISING CLERK [id number] Event Monitor - MC Transmission 09:12:32 CDT 08/06 [id number] Event Monitor - MC review and interp 09:12:32 CDT [id number] Event Monitor - MC recording 09:12:32 CDT CPT-41468 EKG Trac and Interp 16:50:22 CDT CPT-J1030 Depo Medrol 40 mg (Methyl Prednisolone Acetate) 17:05: 54 CDT CPT-J1100 Decadron 4mg (Dexamethasone) 17:05:54 CDT CPT-31830 Abx/Therapy Injection 17:05:54 CDT CPT-J1100 Decadron 4mg (Dexamethasone) 16:55:28 CDT CPT-J1030 Depo Medrol 40 mg (Methyl Prednisolone Acetate) 16:55: 28 CDT CPT-00150 Ankle Complete - Min 3V 15:58:50 CDT CPT-58284 Knee 3V 15:58:50 CDT CPT-98578 Hip comp min 2V 15:58:50 CDT CPT-J2270 Morphine Sulfate 10 mg 14:25:44 ADVERTISING CLERK CPT-J2550 Phenergan 12.5 mg (Promethazine) 14:25:44 ADVERTISING CLERK CPT-30262 Abx/Therapy Injection 14:25:44 ADVERTISING CLERK CPT-J2550 Phenergan 12.5 mg (Promethazine) 14:08:03 ADVERTISING CLERK CPT-J2270 Morphine Sulfate 10 mg 14:08:03 ADVERTISING CLERK CPT-03104 Bladder Scan 15:00:38 CDT CPT-TCMM Transitional Care Mgmt-Moderate 09:52:22 CDT CPT-J1030 Depo Medrol 40 mg (Methyl Prednisolone Acetate) 10:55: 18 CDT CPT-J1100 Decadron 4mg (Dexamethasone) 10:55:18 CDT CPT-77592 Abx/Therapy Injection 10:55:18 CDT CPT-J1030 Depo Medrol 40 mg (Methyl Prednisolone Acetate) 10:22: 32 CDT CPT-J1100 Decadron 4mg (Dexamethasone) 10:22:32 CDT CPT-11264 Postop F/U Visit 14:37:13 CDT CPT-65647 Ankle Complete - Min 3V 17:11:58 CDT CPT-51137 Foot comp min 3V 17:11:58 CDT CPT-38238 Bladder Scan 09:56:58 CDT CPT-31782 Postop F/U Visit 09:56:58 CDT CPT-36030 Cystoscopy 09:02:42 CDT CPT-57777 Bladder Scan 09:02:42 CDT CPT-00965 Abd single AP View 16:00:35 CDT CPT-28314 Administration single or combination vaccine inc oral 10 :15:43 CDT CPT-49618 Influenza split virus > age 3 10:15:43 CDT CPT-38023 Nail Avulsion 09:24:57 CDT CPT-OV Office Visit 11:15:41 CDT CPT-02746 Abx/Therapy Injection 10:51:30 CDT CPT-J3301 Kenalog 40 mg (Triamcinolone Acetonide) 10:25:12 CDT CPT-J1100 Decadron 4mg (Dexamethasone) 10:25:12 CDT CPT-60501 Anoscopy diagnostic 10:36:12 CDT CPT-OV Office Visit 15:34:31 CDT CPT-34269 Abx/Therapy Injection 08:21:15 ADVERTISING CLERK CPT-J1885 Toradol 60 mg (Ketorolac) 10:46:35 ADVERTISING CLERK CPT-OV Office Visit 19:51:16 ADVERTISING CLERK CPT-15301 Spec Collection and Handling Fee 14:34:18 ADVERTISING CLERK CPT-PV Prev. Care Visit 14:19:18 ADVERTISING CLERK CPT-35973 Postop F/U Visit 14:47:51 ADVERTISING CLERK CPT-15883 Postop F/U Visit 15:15:14 ADVERTISING CLERK CPT-71784 Postop F/U Visit 14:41:43 CDT CPT-27347 Postop F/U Visit 15:47:46 CDT CPT-OV Office Visit 15:27:23 CDT CPT-OV Office Visit 17:20:34 CDT CPT-29326 Abx/Therapy Injection 15:05:57 CDT CPT-J1100 Decadron 8mg (Dexamethasone) 14:44:57 CDT CPT-J1040 Depo Medrol 80 mg (Methyl Prednisolone Acetate) 14:44: 57 CDT CPT-JTINJ Joint Injection 10:17:37 CDT CPT-08699 Administration 2+ single or combination vaccines inc oral 13:01:46 ADVERTISING CLERK CPT-61335 Administration single or combination vaccine inc oral 13 :01:46 ADVERTISING CLERK CPT-59347 Pneumovax 13:01:46 ADVERTISING CLERK CPT-31266 Influenza split virus > age 3 13:01:46 ADVERTISING CLERK CPT-30668 Administration single or combination vaccine inc oral 08 :56:49 CDT CPT-48979 Tdap 08:56:49 CDT
--- OUTSIDE RECORDS SUMMARY | 2017-03-21 20:04 | XMS REPORT | Clinical Summary ---
Author Author Admin, E Organization [facility] Address Unknown Phone Unavailable Allergies, Adverse Reactions, Alerts Allergy Name Reaction Description Start Date Severity Status Provider VALENTIN Critical Active Rodrigo Fracharlottel CLINICAL SUPPORT TECH CHLORHEXIDINE GLUCONATE tongue and gums swollen Critical Active Hoa Otto RMA NORFLEX Rash Critical Active Silvestrellina Frazell CLINICAL SUPPORT TECH TRAZODONE HCL sees things Critical Active Dewayne [...] PhD Urinary frequency ALLERGIC RHINITIS 477.9 Active Rodriog Sarah APRN Allergic rhinitis, cause unspecified AFTERCARE [...] APRN Unspecified hypothyroidism MUSCLE PAIN 729.1 Resolved Yoladne Lindsay MD PhD Myalgia and myositis, unspecified [...] MD Lumbago Cough 786.2 Active Jillina Tyrel CLINICAL SUPPORT TECH Cough 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 Jillina Frazellilian CLINICAL SUPPORT TECH 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 Anemia 285.9 Active Gab Padron MD Anemia, unspecified Conjunctivitis 372.30 Active Jillnacho Sarah APRN Conjunctivitis, unspecified Sinusitis 473.9 Active Silvestrellina Frazell CLINICAL SUPPORT TECH Unspecified sinusitis (chronic) Nonspecific syndrome suggestive of viral illness 079.99 Active Jillina Frazell CLINICAL SUPPORT TECH Unspecified viral infection Laryngitis 464.00 Active Jillina Frazell CLINICAL SUPPORT TECH Acute laryngitis without mention of obstruction Abdominal [...] Flank pain, left 789.09 Active Jillina Frazell CLINICAL SUPPORT TECH Abdominal pain, other specified site; multiple sites Abdominal pain, generalized 789.07 Active Jillina Farshadzell CLINICAL SUPPORT TECH Abdominal pain, generalized Back pain, thoracic region, left 724.1 Active Jillina Frazell CLINICAL SUPPORT TECH Pain in thoracic spine Abdominal pain, left [...] 1/2 tab daily for 2 days PREDNISONE 14965151207 No Longer Active Gab Padron MD Active ZOFRAN ODT 4 MG TBDP 1 po q6hr PRN Nausea ONDANSETRON 33284433081 Active Silvestrellina Tyrel GAUTAM Active IBUPROFEN 600 MG TAB 1 tablet by mouth every 6 hours for 7 days, then 1 tablet every 6 hours as needed. Take with food IBUPROFEN 43592101284 Active Jillina Frazell DAIN Active BACTRIM DS 800-160 MG TAB 1 tab by mouth twice daily TRIMETHOPRIM-SULFAMETHOXAZOLE 20316209017 No Longer Active Gab Padron MD Active ADVAIR DISKUS 250-50 MCG/DOSE AEPB 1 puff BID FLUTICASONE- SALMETEROL 48506285632 Active Rodrigo Sarah APRN Active LEVOTHYROXINE SODIUM 75 MCG TABS Take 1 tab daily LEVOTHYROXINE SODIUM 84653308650 No Longer Active Mariana HICKEYA Active SYNTHROID 88 MCG ORAL TABS Take one by mouth daily LEVOTHYROXINE SODIUM 97844933711 Active Mariana HICKEYA Active CHERATUSSIN AC 100-10 MG/5ML SYRP 1 tsp by mouth every 4 hours as needed for cough GUAIFENESIN-CODEINE 79147745300 No Longer Active Gab Padron MD Active POLYTRIM 58897-3.1 UNIT/ML-% SOLN 1 gtt to affected eye q3h x 7 days POLYMYXIN B-TRIMETHOPRIM 75008174226 No Longer Active Gab Padron MD Active FLUTICASONE PROPIONATE 50 MCG/ACT SUSP 1 to 2 sprays each nostril daily 04/21 FLUTICASONE PROPIONATE 96332668862 No Longer Active Gab Padron MD Active TRILEPTAL 600 MG TABS Take one 1 tablet in Am and 1 tablet at night OXCARBAZEPINE 69075504082 Active Gab Padron MD Active CEFDINIR 300 MG CAPS 1 po BID x 10 days CEFDINIR 49316177504 No Longer Active Rodrigo Sarah APRN Active CEFTIN 500 MG TAB 1 twice a day CEFUROXIME AXETIL 48657451590 No Longer Active Gab Padron MD Active AZITHROMYCIN 250 MG TABS 2 po qd x 1 day, then 1 po qd x 4 days AZITHROMYCIN 00796341617 No Longer Active Silvestrellnacho Sarah APRN Active CLARITIN 10 MG TAB 1 tablet by mouth daily as needed for allergies LORATADINE 59255642948 Active Silvestrellnacho Sarah APRN Active OXYCODONE HCL 5 MG ORAL CAPS 1 TAB PO Q HS OXYCODONE HCL 26132683047 No Longer Active Rodrigo Sarah APRN Active NIASPAN 500 MG ORAL CR-TABS 1 pill nightly x 1 week, then 2 pills nightly x 1 week, then 3 pills nightly x 1 week, then 4 pills nightly NIACIN (ANTIHYPERLIPIDEMIC) 01211823588 No Longer Active Silvestrebernabe Yenhossein CLINICAL SUPPORT TECH Active NIACIN 500 MG TABS 1 pill by mouth nightly x 1 week, then 2 pills x 1 week, then 3 pills x 1 week, then 4 pills nightly - take after evening meal, with applesauce or an apple NIACIN 64060875665 No Longer Active Yolande Lindsay MD PhD Active FISH OIL 1000 MG CAPS 3 pills daily OMEGA-3 FATTY ACIDS 55575754669 Active Yolande Lindsay MD PhD Active TRIAMCINOLONE ACETONIDE 0.1 % CREA apply bid sparingly to rash TRIAMCINOLONE ACETONIDE 33442759188 Active Yolande Lindsay MD PhD Active FUROSEMIDE 20 MG TAB 1 tablet by mouth daily FUROSEMIDE 24980779586 Active Tisha Lambert APRN Active LISINOPRIL 20 MG ORAL TABS 1 tab by mouth daily LISINOPRIL 31405762233 Active Gab Padron MD Active FUROSEMIDE 20 MG TABS 1 pill by mouth daily, for edema FUROSEMIDE 85176905949 No Longer Active Yolande Lindsay MD PhD Active ATORVASTATIN CALCIUM 10 MG TABS 1 pill by mouth daily, for cholesterol 09/06 ATORVASTATIN CALCIUM 83006971917 Active Gab Padron MD Active CALCIUM 600+D PLUS MINERALS 600-400 MG-UNIT ORAL CHEW 1 tab by mouth daily CALCIUM CARBONATE-VIT D-MIN 00028269554 No Longer Active Yolande Lindsay MD PhD Active CYCLOBENZAPRINE HCL 10 MG TABS 1 tablet by mouth three times daily as needed for muscle spasm/pain CYCLOBENZAPRINE HCL 76831637192 Active Yolande Lindsay MD PhD Active ONDANSETRON 4 MG TBDP 1 q4h PRN nausea ONDANSETRON 99014389940 Active Yolande Lindsay MD PhD Active ADULT ASPIRIN EC LOW STRENGTH 81 MG TBEC Take 1 tablet by mouth daily 2014 ASPIRIN 06567481896 No Longer Active Yolande Lindsay MD PhD Active ZOFRAN ODT 4 MG TBDP 1 pill dissolved by mouth every 4 hours if needed for nausea ONDANSETRON 68665093569 No Longer Active Yolande Lindsay MD PhD Active CEFTIN 500 MG TAB 1 twice a day CEFUROXIME AXETIL 55775306088 No Longer Active Yolande Lindsay MD PhD Active ALBUTEROL SULFATE 0.083 % NEBU SOLN one vial per nebulizer every 4-6 hours as needed ALBUTEROL SULFATE 46416191767 No Longer Active Alexis Ordaz MD Active DOXYCYCLINE HYCLATE 100 MG CAP 1 cap by mouth twice daily DOXYCYCLINE HYCLATE 87540601051 No Longer Active Yolande Lindsay MD PhD Active CYCLOBENZAPRINE HCL 10 MG TABS 1/2 - 1 tab by mouth three times daily if needed for spasms/pain CYCLOBENZAPRINE HCL 14772618198 No Longer Active Yolande Lindsay MD PhD Active AZITHROMYCIN 250 MG TABS 2 pills on day 1, then 1 pill daily x 4 days AZITHROMYCIN 48342420545 No Longer Active Yolande Lindsay MD PhD Active XOPENEX 1.25 MG/3ML NEBU 1 neb every 4 hours if needed for cough/congestion LEVALBUTEROL HCL 96217821474 No Longer Active Yolande Lindsay MD PhD Active DOXYCYCLINE HYCLATE 100 MG TAB 1 tab twice a day for 14 days 2013 DOXYCYCLINE HYCLATE 71617864231 No Longer Active Yolande Lindsay MD PhD Active PREVACID 30 MG CPDR Take 1 tablet by mouth daily-PRN LANSOPRAZOLE 91745908657 No Longer Active Yolande Lindsay MD PhD Active PA VITAMIN D-3 2000 UNIT CAPS 1 CAP PO DAILY CHOLECALCIFEROL 37525951910 No Longer Active Yolande Lindsay MD PhD Active CEFDINIR 300 MG CAPS by mouth twice a day CEFDINIR 46003683147 No Longer Active Gab Padron MD Active TOPAMAX 50 MG TABS 1 PO twice daily TOPIRAMATE 92307512353 Active Yolande Lindsay MD PhD Active AZITHROMYCIN 250 MG TABS 2 po qd x 1 day, then 1 po qd x 4 days AZITHROMYCIN 99150834917 No Longer Active Yolande Lindsay MD PhD Active DICLOFENAC SODIUM 75 MG TBEC 1 tablet by q 12 hours PRN headaches DICLOFENAC SODIUM 12642063025 No Longer Active Yolande Lindsay MD PhD Active FLONASE 50 MCG/ACT SUSP 1 spray each nostril am and hs FLUTICASONE PROPIONATE 29439821662 No Longer Active Todd Callaway MD Active ANUSOL-HC 25 MG SUPPOSITORY 1 rectally twice a day as needed for hemorrhoids HYDROCORTISONE JAYDEN (RECTAL) 73404068716 No Longer Active Yolande Lindsay MD PhD Active ANUSOL-HC 25 MG SUPPOSITORY 1 suppository rectally each evening as needed for anal fissure HYDROCORTISONE JAYDEN (RECTAL) 88792021679 No Longer Active LONNIE Iglesias Active VALIUM 5 MG TAB 1 po 30 minutes prior to your MRI DIAZEPAM 89185578931 No Longer Active LONNIE Iglesias Active METHOCARBAMOL 750 MG TABS 1 PO QID PRN METHOCARBAMOL 23238989273 No Longer Active Daphne Wetzel APRN Active NITROSTAT 0.4 MG SUBL as directed NITROGLYCERIN 16626826826 No Longer Active Rodriog Sarah APRN Active ROBAXIN-750 750 MG TABS 2 four times a day for 3 days as needed for muscle spasm, then 1 four times a day as needed METHOCARBAMOL 26150128322 No Longer Active Rodrigo Sarah APRN Active HYDROCODONE-ACETAMINOPHEN 5-325 MG TABS 1 q 4-6 hrs prn HYDROCODONE-ACETAMINOPHEN 61016791772 No Longer Active Rodrigo Sarah CLINICAL SUPPORT TECH Active VERAPAMIL HCL CR 180 MG CR-TABS TAKE 1 TAB DAILY VERAPAMIL HCL 00380611978 No Longer Active Yolande Lindsay MD PhD Active BACTRIM DS 800-160 MG TAB 1 tab by mouth twice daily TRIMETHOPRIM-SULFAMETHOXAZOLE 59796872059 No Longer Active Yolande Lindsay MD PhD Active NEXIUM 40 MG PACK 1 by mouth daily ESOMEPRAZOLE MAGNESIUM 75690100577 No Longer Active Des Hines MD Active EPIPEN 2-CHARLETTE 0.3 MG/0.3ML OMARI as need for allergic reaction EPINEPHRINE 92159020850 Active Yolande Lindsay MD PhD Active NEXIUM 40 MG CPDR 1 PO Q D DAY ESOMEPRAZOLE MAGNESIUM 10252433289 No Longer Active Sadia Perry RN Active NEXIUM 40 MG PACK 1 by mouth daily NEXIUM 40 MG PACK ESOMEPRAZOLE MAGNESIUM Inactive VERAPAMIL HCL CR 180 MG CR-TABS TAKE 1 TAB DAILY VERAPAMIL HCL CR 180 MG CR-TABS VERAPAMIL HCL Inactive HYDROCODONE-ACETAMINOPHEN 5-325 MG TABS 1 q 4-6 hrs prn HYDROCODONE-ACETAMINOPHEN 5-325 MG TABS 687740 HYDROCODONE-ACETAMINOPHEN Inactive ROBAXIN-750 750 MG TABS 2 four times a day for 3 days as needed for muscle spasm, then 1 four times a day as needed ROBAXIN-750 750 MG TABS 587788 METHOCARBAMOL Inactive NITROSTAT 0.4 MG SUBL as directed NITROSTAT 0.4 MG SUBL NITROGLYCERIN Inactive METHOCARBAMOL 750 MG TABS 1 PO QID PRN METHOCARBAMOL 750 MG TABS 753935 METHOCARBAMOL Inactive VALIUM 5 MG TAB 1 po 30 minutes prior to your MRI VALIUM 5 MG TAB 195011 DIAZEPAM Inactive ANUSOL-HC 25 MG SUPPOSITORY 1 suppository rectally each evening as needed for anal fissure ANUSOL-HC 25 MG SUPPOSITORY 6042037 HYDROCORTISONE JAYDEN (RECTAL) Inactive ANUSOL-HC 25 MG SUPPOSITORY 1 rectally twice a day as needed for hemorrhoids ANUSOL-HC 25 MG SUPPOSITORY 8269306 HYDROCORTISONE JAYDEN (RECTAL) Inactive FLONASE 50 MCG/ACT SUSP 1 spray each nostril am and hs FLONASE 50 MCG/ACT SUSP FLUTICASONE PROPIONATE Inactive DICLOFENAC SODIUM 75 MG TBEC 1 tablet by q 12 hours PRN headaches DICLOFENAC SODIUM 75 MG TBEC 257269 DICLOFENAC SODIUM Inactive PA VITAMIN D-3 2000 UNIT CAPS 1 CAP PO DAILY PA VITAMIN D-3 2000 UNIT CAPS CHOLECALCIFEROL Inactive PREVACID 30 MG CPDR Take 1 tablet by mouth daily-PRN PREVACID 30 MG CPDR 880904 LANSOPRAZOLE Inactive DOXYCYCLINE HYCLATE 100 MG TAB 1 tab twice a day for 14 days 2013 DOXYCYCLINE HYCLATE 100 MG TAB 0136540 DOXYCYCLINE HYCLATE Inactive XOPENEX 1.25 MG/3ML NEBU 1 neb every 4 hours if needed for cough/congestion XOPENEX 1.25 MG/3ML NEBU 334747 LEVALBUTEROL HCL Inactive CYCLOBENZAPRINE HCL 10 MG TABS 1/2 - 1 tab by mouth three times daily if needed for spasms/pain CYCLOBENZAPRINE HCL 10 MG TABS 294855 CYCLOBENZAPRINE HCL Inactive ALBUTEROL SULFATE 0.083 % NEBU SOLN one vial per nebulizer every 4-6 hours as needed ALBUTEROL SULFATE 0.083 % NEBU SOLN 332158 ALBUTEROL SULFATE Inactive CEFTIN 500 MG TAB 1 twice a day CEFTIN 500 MG TAB 056170 CEFUROXIME AXETIL Inactive ZOFRAN ODT 4 MG TBDP 1 pill dissolved by mouth every 4 hours if needed for nausea ZOFRAN ODT 4 MG TBDP 975717 ONDANSETRON Inactive ADULT ASPIRIN EC LOW STRENGTH 81 MG TBEC Take 1 tablet by mouth daily 2014 ADULT ASPIRIN EC LOW STRENGTH 81 MG TBEC 818321 ASPIRIN Inactive CALCIUM 600+D PLUS MINERALS 600-400 [...] or an apple NIACIN 500 MG TABS 683494 NIACIN Inactive NIASPAN 500 MG ORAL CR-TABS 1 pill nightly x 1 week, then 2 pills nightly x 1 week, then 3 pills nightly x 1 week, then 4 pills nightly NIASPAN 500 MG ORAL CR-TABS NIACIN (ANTIHYPERLIPIDEMIC) Inactive OXYCODONE HCL 5 MG ORAL CAPS 1 TAB PO Q HS OXYCODONE HCL 5 MG ORAL CAPS 4708451 OXYCODONE HCL Inactive FLUTICASONE PROPIONATE 50 MCG/ACT SUSP 1 to 2 sprays each nostril daily 04/21 FLUTICASONE PROPIONATE 50 MCG/ACT SUSP 089565 FLUTICASONE PROPIONATE Inactive POLYTRIM 56689-5.1 UNIT/ML-% SOLN 1 gtt to affected eye q3h x 7 days POLYTRIM 94178-0.1 UNIT/ML-% SOLN 011294 POLYMYXIN B- TRIMETHOPRIM Inactive CHERATUSSIN AC 100-10 MG/5ML SYRP 1 tsp by mouth every 4 hours as needed for cough CHERATUSSIN AC 100-10 MG/5ML SYRP 439826 GUAIFENESIN-CODEINE Inactive LEVOTHYROXINE SODIUM 75 MCG TABS Take 1 tab daily LEVOTHYROXINE SODIUM 75 MCG TABS 674328 LEVOTHYROXINE SODIUM Inactive BACTRIM DS 800-160 MG TAB 1 tab by mouth twice daily BACTRIM DS 800-160 MG TAB 19820606 TRIMETHOPRIM-SULFAMETHOXAZOLE Inactive AZITHROMYCIN 250 MG TABS 2 po qd x 1 day, then 1 po qd x 4 days AZITHROMYCIN 250 MG TABS 4830997 AZITHROMYCIN Inactive CEFDINIR 300 MG CAPS by mouth twice a day CEFDINIR 300 MG CAPS 843454 CEFDINIR Inactive AZITHROMYCIN 250 MG TABS 2 pills on day 1, then 1 pill daily x 4 days AZITHROMYCIN 250 MG TABS 9010527 AZITHROMYCIN Inactive DOXYCYCLINE HYCLATE 100 MG CAP 1 cap by mouth twice daily DOXYCYCLINE HYCLATE 100 MG CAP 0936504 DOXYCYCLINE HYCLATE Inactive FUROSEMIDE 20 MG TABS 1 pill by mouth daily, for edema FUROSEMIDE 20 MG TABS 335377 FUROSEMIDE Inactive AZITHROMYCIN 250 MG TABS 2 po qd x 1 day, then 1 po qd x 4 days AZITHROMYCIN 250 MG TABS 6729772 AZITHROMYCIN Inactive CEFTIN 500 MG TAB 1 twice a day CEFTIN 500 MG TAB 566732 CEFUROXIME AXETIL Inactive CEFDINIR 300 MG CAPS [...] for 2 days PREDNISONE 20 MG TAB 893243 PREDNISONE Inactive Immunizations Vaccine Administration Date Value Standard Description Seasonal influenza vaccine, injectable, containing preservative, for > 3 years old (Afluria, FluLaval, Fluzone, Fluvirin, Fluarix, Agriflu(>=18 yo)) Fluzone (>3 yrs.) [[id number]] Influenza, seasonal, injectable influenza immunization (Flu Vax) has been administered Influenza - Unspecified Formulation [CVX88] influenza virus vaccine, unspecified formulation Seasonal influenza vaccine, injectable, containing preservative, for > 3 years old (Afluria, FluLaval, Fluzone, Fluvirin, Fluarix, Agriflu(>=18 yo)) Fluzone (>3 yrs.) [[id number]] Influenza, seasonal, injectable pneumococcal immunization administered Pneumovax 23 [CVX33] pneumococcal polysaccharide vaccine, 23 valent dT (Diphtheria and Tetanus) booster given given Td(adult) unspecified formulation Boostrix (Tetanus toxoid, reduced diphtheria toxoid and acellular pertussis vaccine, adsorbed), booster Boostrix [FED392] tetanus toxoid, reduced diphtheria toxoid, and acellular pertussis vaccine, adsorbed Vital Signs Date Name Value Unit Range Description blood pressure, diastolic - 8462-4 68 mm[Hg] [...] E&M - 3141-9 236.12 [lb_av] Weight Measured Diagnostic Results Date Name Value Unit Range Description Lab Report: Basic Metabolic Panel - Chemistry sodium, serum 142 mmol/L 049-612 4862/06/30 potassium, serum 4.4 mmol/L 3.5-5.2 chloride, serum 108 mmol/L 98-107 carbon dioxide, venous blood 25.1 mmol/L 21.0-32.0 blood glucose 82 mg/dL 65-110 calcium, serum 9.1 mg/dL 8.5-10.1 urea nitrogen, blood 18 mg/dL 7-18 creatinine, serum 1.31 mg/dL 0.55-1.30 Lab Report: [facility] Advanced Lipid and Inlammation Panel /50477 - Chemistry cholesterol, serum 148 mg/dL 102-842 6363/09/02 HDL cholesterol, serum 55 mg/dL > OR=46 [...] (L) - Chemistry sodium, serum 145 mmol/L 199-266 8432/09/02 potassium, serum 4.6 mmol/L 3.5-5.2 chloride, serum [...] Rate - Chemistry sodium, serum 139 mmol/L 917-247 2498/03/24 carbon dioxide, venous blood 22.4 mmol/L 21.0-32.0 [...] ... - Chemistry sodium, serum 143 mmol/L 146-517 6512/05/02 carbon dioxide, venous blood 25.6 mmol/L 21.0-32.0 [...] Negative mg/dL Negative sodium, serum 142 mmol/L 002-060 8920/07/18 carbon dioxide, venous blood 27.8 mmol/L 21.0-32.0 [...] mg/dL Encounters Code Encounter Date Provider Facility CPT-47418 Level 2 Est. Patient 12:23:38 CDT Jared Og MD [facility] CPT-82292 Level 3 Est. Patient 11:01:51 CDT Gab Padron MD [facility] CPT-29999 Level 3 Est. Patient 15:27:02 CDT Jared Og MD [facility] [place] CPT-65778 Level 4 Est. Patient 09:25:27 CDT Gab Padron MD [facility] CPT-78743 Level 3 Est. Patient 10:29:41 CDT Rodrigo Sarah APR-81886 Level 4 Est. Patient 17:51:05 CDT Gab Padron MD [facility]-99653 Level 3 Est. Patient 14:18:08 CDT Gab Padron MD [facility]-89147 Level 4 Est. Patient 10:18:54 CDT Gab Padron MD [facility]-02747 Level 3 Est. Patient 11:30:07 CDT Rodrigo Sarah [facility]-52533 Level 4 Est. Patient 21:02:30 FILTER TIP INSPECTOR Gab Padron MD [facility]-05273 Level 3 Est. Patient 11:02:19 FILTER TIP INSPECTOR Gab Padron MD [facility]-40011 Level 4 Est. Patient 22:24:31 FILTER TIP INSPECTOR Gab Padron MD [facility]-89287 Level 3 Est. Patient 18:33:46 FILTER TIP INSPECTOR Gab Padron MD [facility]-85485 Level 3 Est. Patient 16:19:11 CDT Yolande Lindsay MD [facility]-48103 Level 3 Est. Patient 18:59:14 CDT Yolande Lindsay MD [facility]-20680 Level 4 Est. Patient 21:29:26 CDT Yloande Lindsay MD PhD [facility]-81415 Level 3 Est. Patient 07:37:45 CDT Yolande Lindsay MD [facility]-52153 Level 3 Est. Patient 17:03:46 CDT Yolande Lindsay MD [facility]-70487 Level 4 Est. Patient 20:02:13 FILTER TIP INSPECTOR Yolande Lindsay MD PhD [facility]-37139 Level 3 Est. Patient 16:02:07 FILTER TIP INSPECTOR Alexis Ordaz MD [facility] CPT-99040 Level 3 Est. Patient 12:41:24 FILTER TIP INSPECTOR Yolande Lindsay MD [facility]-78725 Level 3 Est. Patient 15:41:20 FILTER TIP INSPECTOR Yolande Lindsay MD [facility]-26024 Level 3 Est. Patient 13:20:02 FILTER TIP INSPECTOR Yolande Lindsay MD [facility]-28028 Level 3 Est. Patient 15:00:38 CDT Jared Og MD [facility]-35477 Level 3 Est. Patient 10:22:32 CDT Yolande Lindsay MD [facility]-94965 Level 3 Est. Patient 17:12:58 CDT Yolande Lindsay MD [facility] CPT-73810 Level 4 Est. Patient 13:30:58 CDT Yolande Lindsay MD [facility] CPT-69864 Level 4 New Patient 09:02:42 CDT Jared Og MD [facility]-06642 Level 3 Est. Patient 08:19:07 CDT Yolande Lindsay MD [facility] CPT-82275 Level 3 Est. Patient 12:00:13 FILTER TIP INSPECTOR Gab Padron MD [facility] CPT-56176 Level 3 Est. Patient 16:15:23 FILTER TIP INSPECTOR Yolande Lindsay MD [facility] CPT-79979 Level 2 Est. Patient 19:47:15 CDT Yolande Lindsay MD [facility]-32655 Level 3 Est. Patient 21:38:31 CDT Yolande Lindsay MD [facility]-44322 Level 3 Est. Patient 10:25:12 CDT Adiel PERAZA [facility] CPT-61447 Level 4 Est. Patient 10:51:58 CDT Yolande Lindsay MD [facility]-56623 Level 3 Est. Patient 14:04:55 FILTER TIP INSPECTOR Rodrigo Sarah [facility] CPT-07682 Level 3 Est. Patient 10:46:35 FILTER TIP INSPECTOR Rodrigo Sarah [facility] CPT-72093 Level 3 Est. Patient 14:24:37 FILTER TIP INSPECTOR Yolande Lindsay MD [facility]-12126 Level 3 Est. Patient 17:41:58 FILTER TIP INSPECTOR Yolande Lindsay MD [facility]-20289 Level 2 Est. Patient 22:01:41 FILTER TIP INSPECTOR Rodrigo Sarah [facility]-75075 Level 2 Est. Patient 22:01:11 FILTER TIP INSPECTOR Rodrigo Sarah [facility] CPT-44514 Level 3 Est. Patient 10:12:29 FILTER TIP INSPECTOR Rodrigo Sarah [facility] CPT-27149 Level 3 Est. Patient 11:05:44 CDT Alexis Ordaz MD [facility]-80595 Level 3 Est. Patient 14:57:20 CDT Yolande Lindsay MD [facility]-98583 Level 3 Est. Patient 14:40:57 CDT Yolande Lindsay MD [facility] CPT-97129 Level 3 Est. Patient 20:55:40 CDT Yolande Lindsay MD [facility]-31267 Level 3 Est. Patient 12:42:38 FILTER TIP INSPECTOR Yolande Lindsay MD [facility]-29628 Level 3 Est. Patient 11:54:49 FILTER TIP INSPECTOR Des Hines MD [facility]-81681 Level 3 Est. Patient 17:06:38 CDT Dewayne PERAZA [facility] Procedures Code Procedure Name Date Entry Date Standard Description CPT-80443 Foot, left, comp min 3V - XRAY USE ONLY 09:24:54 CDT CPT-88979 Abd single AP View - XRAY USE ONLY 11:16:17 CDT CPT-14414 T spine AP/ Lat - XRAY USE ONLY 09:34:21 CDT CPT-39077 Chest 2V Frontal and Lat - XRAY USE ONLY 10:48:51 CDT CPT-72202 LS spine comp w obliq 13:28:00 FILTER TIP INSPECTOR CPT-J1040 Depo Medrol 80 mg (Methyl Prednisolone Acetate) 10:51: 28 FILTER TIP INSPECTOR CPT-J1100 Decadron 8mg (Dexamethasone) 10:51:28 FILTER TIP INSPECTOR CPT-03871 Abx/Therapy Injection 10:51:28 FILTER TIP INSPECTOR CPT-J1100 Decadron 8mg (Dexamethasone) 21:02:30 FILTER TIP INSPECTOR CPT-J1040 Depo Medrol 80 mg (Methyl Prednisolone Acetate) 21:02: 30 FILTER TIP INSPECTOR [id number] Event Monitor - MC Transmission 09:12:32 CDT 08/06 [id number] Event Monitor - MC review and interp 09:12:32 CDT [id number] Event Monitor - MC recording 09:12:32 CDT CPT-44443 EKG Trac and Interp 16:50:22 CDT CPT-J1030 Depo Medrol 40 mg (Methyl Prednisolone Acetate) 17:05: 54 CDT CPT-J1100 Decadron 4mg (Dexamethasone) 17:05:54 CDT CPT-55742 Abx/Therapy Injection 17:05:54 CDT CPT-J1100 Decadron 4mg (Dexamethasone) 16:55:28 CDT CPT-J1030 Depo Medrol 40 mg (Methyl Prednisolone Acetate) 16:55: 28 CDT CPT-49390 Ankle Complete - Min 3V 15:58:50 CDT CPT-04353 Knee 3V 15:58:50 CDT CPT-38011 Hip comp min 2V 15:58:50 CDT CPT-J2270 Morphine Sulfate 10 mg 14:25:44 FILTER TIP INSPECTOR CPT-J2550 Phenergan 12.5 mg (Promethazine) 14:25:44 FILTER TIP INSPECTOR CPT-52483 Abx/Therapy Injection 14:25:44 FILTER TIP INSPECTOR CPT-J2550 Phenergan 12.5 mg (Promethazine) 14:08:03 FILTER TIP INSPECTOR CPT-J2270 Morphine Sulfate 10 mg 14:08:03 FILTER TIP INSPECTOR CPT-58944 Bladder Scan 15:00:38 CDT CPT-TCMM Transitional Care Mgmt-Moderate 09:52:22 CDT CPT-J1030 Depo Medrol 40 mg (Methyl Prednisolone Acetate) 10:55: 18 CDT CPT-J1100 Decadron 4mg (Dexamethasone) 10:55:18 CDT CPT-33421 Abx/Therapy Injection 10:55:18 CDT CPT-J1030 Depo Medrol 40 mg (Methyl Prednisolone Acetate) 10:22: 32 CDT CPT-J1100 Decadron 4mg (Dexamethasone) 10:22:32 CDT CPT-43333 Postop F/U Visit 14:37:13 CDT CPT-22516 Ankle Complete - Min 3V 17:11:58 CDT CPT-74706 Foot comp min 3V 17:11:58 CDT CPT-17383 Bladder Scan 09:56:58 CDT CPT-25089 Postop F/U Visit 09:56:58 CDT CPT-51567 Cystoscopy 09:02:42 CDT CPT-83781 Bladder Scan 09:02:42 CDT CPT-50206 Abd single AP View 16:00:35 CDT CPT-09435 Administration single or combination vaccine inc oral 10 :15:43 CDT CPT-19972 Influenza split virus > age 3 10:15:43 CDT CPT-45503 Nail Avulsion 09:24:57 CDT CPT-OV Office Visit 11:15:41 CDT CPT-23407 Abx/Therapy Injection 10:51:30 CDT CPT-J3301 Kenalog 40 mg (Triamcinolone Acetonide) 10:25:12 CDT CPT-J1100 Decadron 4mg (Dexamethasone) 10:25:12 CDT CPT-69266 Anoscopy diagnostic 10:36:12 CDT CPT-OV Office Visit 15:34:31 CDT CPT-99764 Abx/Therapy Injection 08:21:15 FILTER TIP INSPECTOR CPT-J1885 Toradol 60 mg (Ketorolac) 10:46:35 FILTER TIP INSPECTOR CPT-OV Office Visit 19:51:16 FILTER TIP INSPECTOR CPT-67533 Spec Collection and Handling Fee 14:34:18 FILTER TIP INSPECTOR CPT-PV Prev. Care Visit 14:19:18 FILTER TIP INSPECTOR CPT-97199 Postop F/U Visit 14:47:51 FILTER TIP INSPECTOR CPT-56143 Postop F/U Visit 15:15:14 FILTER TIP INSPECTOR CPT-31515 Postop F/U Visit 14:41:43 CDT CPT-49671 Postop F/U Visit 15:47:46 CDT CPT-OV Office Visit 15:27:23 CDT CPT-OV Office Visit 17:20:34 CDT CPT-59468 Abx/Therapy Injection 15:05:57 CDT CPT-J1100 Decadron 8mg (Dexamethasone) 14:44:57 CDT CPT-J1040 Depo Medrol 80 mg (Methyl Prednisolone Acetate) 14:44: 57 CDT CPT-JTINJ Joint Injection 10:17:37 CDT CPT-86288 Administration 2+ single or combination vaccines inc oral 13:01:46 FILTER TIP INSPECTOR CPT-81198 Administration single or combination vaccine inc oral 13 :01:46 FILTER TIP INSPECTOR CPT-34068 Pneumovax 13:01:46 FILTER TIP INSPECTOR CPT-96352 Influenza split virus > age 3 13:01:46 FILTER TIP INSPECTOR CPT-78953 Administration single or combination vaccine inc oral 08 :56:49 CDT CPT-86466 Tdap 08:56:49 CDT
--- OUTSIDE RECORDS SUMMARY | 2017-03-21 20:06 | XMS REPORT | Clinical Summary ---
Author Author Admin, MARGRET Organization [employer] Address Unknown Phone Unavailable Allergies, Adverse Reactions, Alerts Allergy Name Reaction Description Start Date Severity Status Provider VALENTIN Critical Active Rodrigo Montemayorl CONTRACT ENGINEER CHLORHEXIDINE GLUCONATE tongue and gums swollen Critical Active Hoa Kabaford RMA NORFLEX Rash Critical Active Rowenaina Frazell CONTRACT ENGINEER TRAZODONE HCL sees things Critical Active Dewayne [...] infarction, hx of 412 Active Hoa Otto [facility] Old myocardial infarction Pelvic pain 789.09 Resolved [...] Cellulitis and abscess of leg, except foot ANKLE PAIN, RIGHT ICD-719.47 Inactive Yolande Lindsay MD PhD EDEMA, LIMB ICD-782.3 Inactive Yolande Lindsay MD PhD ABDOMINAL PAIN ICD-789.00 Inactive Yolande Lindsay MD PhD PLANTAR FASCIITIS ICD-728.71 Inactive Yolande Lindsay MD PhD UTI ICD-599.0 Inactive Yolande Lindsay MD PhD OTHER SCREENING MAMMOGRAM ICD-V76.12 Inactive Yolande Lindsay MD PhD FOOT PAIN, RIGHT ICD-729.5 Inactive Yolande Lindsay MD PhD KNEE PAIN ICD-719.46 Inactive Yolande Lindsay MD PhD BACK PAIN ICD-724.5 Inactive Yolande Lindsay MD PhD ALLERGIC REACTION, ACUTE ICD-995.3 Inactive Alexis Ordaz MD FREQUENCY, URINARY ICD-788.41 Inactive Yolande Lindsay MD PhD AFTERCARE FLW SURG TEETH ORL CAV&DIGESTV SYS NEC ICD-V58.75 04/25 Inactive Yolande Lindsay MD PhD GERD ICD-530.81 Inactive Todd Callaway MD ROUTINE GYNECOLOGICAL EXAMINATION ICD-V72.31 Inactive Yolande Lindsay MD PhD AFTERCARE FOLLOW SURGERY MUSCULOSKEL SYSTEM NEC ICD-V58.78 02/06 Inactive Todd Callaway MD FISSURE, ANAL ICD-565.0 Inactive Yolande Lindsay MD PhD CHEST PAIN, UNSPECIFIED ICD-786.50 Inactive Yolande Lindsay MD PhD HEADACHE ICD-784.0 Inactive Yolande Lindsay MD PhD OTHER DISORDER OF COCCYX ICD-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 Inactive Yolande Lindsay MD PhD LONG-TERM (CURRENT) USE OF OTHER MEDICATIONS ICD-V58.69 Inactive Yolande Lindsay MD PhD MUSCLE PAIN ICD-729.1 Inactive Yolande Lindsay MD PhD ABDOMINAL PAIN, LEFT LOWER QUADRANT ICD-789.04 Inactive Yolande Lindsay MD PhD HEMATOCHEZIA ICD-578.1 Inactive Yolande Lindsay MD PhD HEMORRHOIDS, INTERNAL, WITH BLEEDING ICD-455.2 Inactive Yolande Lindsay MD PhD POISON SAMI DERMATITIS ICD-692.6 Inactive Yolande Lindsay MD PhD ABDOMINAL PAIN, EPIGASTRIC ICD-789.06 Inactive Yolande Lindsay MD PhD GERD ICD-530.81 Inactive Yolande Lindsay MD PhD 07/16 DYSPHAGIA UNSPECIFIED ICD-787.20 Inactive Yolande Lindsay MD PhD INGROWN TOENAIL [...] right ICD-719.47 Inactive Yolande Lindsay MD PhD 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 Inactive Yolande Lindsay MD PhD Tick bite ICD-989.5 Inactive Yolande Lindsay MD PhD URI ICD-465.9 Inactive Yolande Lindsay MD PhD Sinusitis, acute ICD-461.9 Inactive Yolande Lindsay MD PhD Sexual dysfunction ICD-302.70 Inactive Gab Padron MD Muscle spasm, back ICD-724.8 Inactive Yolande Lindsay MD PhD Abdominal pain, [...] MD Laryngitis ICD-464.00 Inactive Gab Padron MD Flank pain ICD-789.09 Inactive Yolande Lindsay MD PhD Sinusitis ICD-461.9 Inactive Yolande Lindsay MD PhD Abdominal pain ICD-789.00 Inactive Gab Padron MD [...] Abdominal pain, left lower quadrant ICD-789.04 Inactive Gba Padron MD Slowing of urinary stream ICD-788.62 [...] Generic Name ND Status Provider Patient Instruction BACTRIM DS 800-160 MG TAB 1 tab by mouth twice daily TRIMETHOPRIM-SULFAMETHOXAZOLE 95243475934 No Longer Active Tisha Lambert APRN Active ADVAIR DISKUS 250-50 MCG/DOSE AEPB 1 puff BID FLUTICASONE-SALMETEROL 45408353372 No Longer Active Todd Callaway MD Active ONDANSETRON 4 MG TBDP 1 q4h PRN nausea ONDANSETRON 15255661594 No Longer Active LONNIE Iglesias Active FISH OIL 1000 MG CAPS 3 pills daily OMEGA-3 FATTY ACIDS 08330883015 No Longer Active LONNIE Iglesias Active CETIRIZINE HCL 10 MG ORAL TABS 1 po qd PRN Allergies CETIRIZINE HCL 76875766212 Active Gab Padron MD Active CLARITIN 10 MG TAB 1 tablet by mouth daily as needed for allergies LORATADINE 70120173145 No Longer Active Gab Padron MD Active PREDNISONE 20 MG TAB take 3 tabs daily for 3 days, 2 tabs daily for 3 days, 1 tab daily for 3 days, 1/2 tab daily for 3 days PREDNISONE 50498856547 No Longer Active Tisha Lambert APRN Active TRAMADOL HCL 50 MG TABS 1 tab po every 6 hrs prn pain TRAMADOL HCL 15651229711 Active Gab Padron MD Active PREDNISONE 20 MG TAB 2 tabs daily for 3 days, 1 tab daily for 3 days, 1/2 tab daily for 2 days PREDNISONE 29803100144 No Longer Active Gab Padron MD Active ZOFRAN ODT 4 MG TBDP 1 po q6hr PRN Nausea ONDANSETRON 53196545173 Active Gab Padron MD Active IBUPROFEN 600 MG TAB 1 tablet by mouth every 6 hours for 7 days, then 1 tablet every 6 hours as needed. Take with food IBUPROFEN 28732171595 Active Rodrigo Sarah APRN Active BACTRIM DS 800-160 MG TAB 1 tab by mouth twice daily TRIMETHOPRIM-SULFAMETHOXAZOLE 47192992177 No Longer Active Gab Padron MD Active LEVOTHYROXINE SODIUM 75 MCG TABS Take 1 tab daily LEVOTHYROXINE SODIUM 97087626395 No Longer Active Mariana Cuadra EDELMIRA Active SYNTHROID 88 MCG ORAL TABS Take one by mouth daily LEVOTHYROXINE SODIUM 59236226934 Active Gab Padron MD Active CHERATUSSIN AC 100-10 MG/5ML SYRP 1 tsp by mouth every 4 hours as needed for cough GUAIFENESIN-CODEINE 21180322384 No Longer Active Gab Padron MD Active POLYTRIM 93737-3.1 UNIT/ML-% SOLN 1 gtt to affected eye q3h x 7 days POLYMYXIN B-TRIMETHOPRIM 60474296178 No Longer Active Gab Padron MD Active FLUTICASONE PROPIONATE 50 MCG/ACT SUSP 1 to 2 sprays each nostril daily 04/21 FLUTICASONE PROPIONATE 28108735397 No Longer Active Gab Padron MD Active TRILEPTAL 600 MG TABS Take one 1 tablet in Am and 1 tablet at night OXCARBAZEPINE 55107627944 Active Gab Padron MD Active CEFDINIR 300 MG CAPS 1 po BID x 10 days CEFDINIR 48943667709 No Longer Active Rodrigo Sarah APRN Active CEFTIN 500 MG TAB 1 twice a day CEFUROXIME AXETIL 79129599694 No Longer Active Gab Padron MD Active AZITHROMYCIN 250 MG TABS 2 po qd x 1 day, then 1 po qd x 4 days AZITHROMYCIN 23621826383 No Longer Active Rodrigo Sarah APRN Active OXYCODONE HCL 5 MG ORAL CAPS 1 TAB PO Q HS OXYCODONE HCL 80277348387 No Longer Active Rodrigo Sarah APRN Active NIASPAN 500 MG ORAL CR-TABS 1 pill nightly x 1 week, then 2 pills nightly x 1 week, then 3 pills nightly x 1 week, then 4 pills nightly NIACIN (ANTIHYPERLIPIDEMIC) 92300304990 No Longer Active Rodrigo Sarah APRN Active NIACIN 500 MG TABS 1 pill by mouth nightly x 1 week, then 2 pills x 1 week, then 3 pills x 1 week, then 4 pills nightly - take after evening meal, with applesauce or an apple NIACIN 28372797564 No Longer Active Yolande Lindsay MD PhD Active TRIAMCINOLONE ACETONIDE 0.1 % CREA apply bid sparingly to rash TRIAMCINOLONE ACETONIDE 63091713911 Active Yolande Lindsay MD PhD Active FUROSEMIDE 20 MG TAB 1 tablet by mouth daily FUROSEMIDE 18227409847 Active Gab Padron MD Active LISINOPRIL 20 MG ORAL TABS 1 tab by mouth daily LISINOPRIL 88989382002 Active Gab Padron MD Active FUROSEMIDE 20 MG TABS 1 pill by mouth daily, for edema FUROSEMIDE 42982500637 No Longer Active Yolande Lindsay MD PhD Active ATORVASTATIN CALCIUM 10 MG TABS 1 pill by mouth daily, for cholesterol 09/06 ATORVASTATIN CALCIUM 72259169340 Active Gab Padron MD Active CALCIUM 600+D PLUS MINERALS 600-400 MG-UNIT ORAL CHEW 1 tab by mouth daily CALCIUM CARBONATE-VIT D-MIN 41456080278 No Longer Active Yolande Lindsay MD PhD Active CYCLOBENZAPRINE HCL 10 MG TABS 1 tablet by mouth three times daily as needed for muscle spasm/pain CYCLOBENZAPRINE HCL 87781079117 Active Yolande Lindsay MD PhD Active ADULT ASPIRIN EC LOW STRENGTH 81 MG TBEC Take 1 tablet by mouth daily 2014 ASPIRIN 08388017781 No Longer Active Yolande Lindsay MD PhD Active ZOFRAN ODT 4 MG TBDP 1 pill dissolved by mouth every 4 hours if needed for nausea ONDANSETRON 94595563017 No Longer Active Yolande Lindsay MD PhD Active CEFTIN 500 MG TAB 1 twice a day CEFUROXIME AXETIL 18150257290 No Longer Active Yolande Lindsay MD PhD Active ALBUTEROL SULFATE 0.083 % NEBU SOLN one vial per nebulizer every 4-6 hours as needed ALBUTEROL SULFATE 00236034762 No Longer Active Alexis Ordaz MD Active DOXYCYCLINE HYCLATE 100 MG CAP 1 cap by mouth twice daily DOXYCYCLINE HYCLATE 65618357061 No Longer Active Yolande Lindsay MD PhD Active CYCLOBENZAPRINE HCL 10 MG TABS 1/2 - 1 tab by mouth three times daily if needed for spasms/pain CYCLOBENZAPRINE HCL 34212099679 No Longer Active Yolande Lindsay MD PhD Active AZITHROMYCIN 250 MG TABS 2 pills on day 1, then 1 pill daily x 4 days AZITHROMYCIN 93661470446 No Longer Active Yolande Lindsay MD PhD Active XOPENEX 1.25 MG/3ML NEBU 1 neb every 4 hours if needed for cough/congestion LEVALBUTEROL HCL 12504085840 No Longer Active Yolande Lindsay MD PhD Active DOXYCYCLINE HYCLATE 100 MG TAB 1 tab twice a day for 14 days 2013 DOXYCYCLINE HYCLATE 70953962516 No Longer Active Yolande Lindsay MD PhD Active PREVACID 30 MG CPDR Take 1 tablet by mouth daily-PRN LANSOPRAZOLE 92394037293 No Longer Active Yolande Lindsay MD PhD Active PA VITAMIN D-3 2000 UNIT CAPS 1 CAP PO DAILY CHOLECALCIFEROL 46156173225 No Longer Active Yolande Lindsay MD PhD Active CEFDINIR 300 MG CAPS by mouth twice a day CEFDINIR 78434246214 No Longer Active Gab Padron MD Active TOPAMAX 50 MG TABS 1 PO twice daily TOPIRAMATE 09003829953 Active Yolande Lindsay MD PhD Active AZITHROMYCIN 250 MG TABS 2 po qd x 1 day, then 1 po qd x 4 days AZITHROMYCIN 08672937288 No Longer Active Yolande Lindsay MD PhD Active DICLOFENAC SODIUM 75 MG TBEC 1 tablet by q 12 hours PRN headaches DICLOFENAC SODIUM 41738566783 No Longer Active Yolande Lindsay MD PhD Active FLONASE 50 MCG/ACT SUSP 1 spray each nostril am and hs FLUTICASONE PROPIONATE 41545949277 No Longer Active Todd Callaway MD Active ANUSOL-HC 25 MG SUPPOSITORY 1 rectally twice a day as needed for hemorrhoids HYDROCORTISONE JAYDEN (RECTAL) 55620110910 No Longer Active Yolande Lindsay MD PhD Active ANUSOL-HC 25 MG SUPPOSITORY 1 suppository rectally each evening as needed for anal fissure HYDROCORTISONE JAYDEN (RECTAL) 85901012124 No Longer Active LONNIE Iglesias Active VALIUM 5 MG TAB 1 po 30 minutes prior to your MRI DIAZEPAM 52255242756 No Longer Active LONNIE Iglesias Active METHOCARBAMOL 750 MG TABS 1 PO QID PRN METHOCARBAMOL 84405674782 No Longer Active Daphne Wetzel APRN Active NITROSTAT 0.4 MG SUBL as directed NITROGLYCERIN 66570892929 No Longer Active Rodrigo Sarah APRN Active ROBAXIN-750 750 MG TABS 2 four times a day for 3 days as needed for muscle spasm, then 1 four times a day as needed METHOCARBAMOL 96325379992 No Longer Active Rodrigo Sarah APRN Active HYDROCODONE-ACETAMINOPHEN 5-325 MG TABS 1 q 4-6 hrs prn HYDROCODONE-ACETAMINOPHEN 47202786907 No Longer Active Rodrigo Sarah CONTRACT ENGINEER Active VERAPAMIL HCL CR 180 MG CR-TABS TAKE 1 TAB DAILY VERAPAMIL HCL 26985247851 No Longer Active Yolande Lindsay MD PhD Active BACTRIM DS 800-160 MG TAB 1 tab by mouth twice daily TRIMETHOPRIM-SULFAMETHOXAZOLE 18927208261 No Longer Active Yolande Lindsay MD PhD Active NEXIUM 40 MG PACK 1 by mouth daily ESOMEPRAZOLE MAGNESIUM 92319616372 No Longer Active Des Hines MD Active EPIPEN 2-CHARLETTE 0.3 MG/0.3ML OMARI as need for allergic reaction EPINEPHRINE 33090250853 Active Yolande Lindsay MD PhD Active NEXIUM 40 MG CPDR 1 PO Q D DAY ESOMEPRAZOLE MAGNESIUM 19947180904 No Longer Active Sadia Perry RN Active NEXIUM 40 MG PACK 1 by mouth daily NEXIUM 40 MG PACK ESOMEPRAZOLE MAGNESIUM Inactive VERAPAMIL HCL CR 180 MG CR-TABS TAKE 1 TAB DAILY VERAPAMIL HCL CR 180 MG CR-TABS VERAPAMIL HCL Inactive HYDROCODONE-ACETAMINOPHEN 5-325 MG TABS 1 q 4-6 hrs prn HYDROCODONE-ACETAMINOPHEN 5-325 MG TABS 208588 HYDROCODONE-ACETAMINOPHEN Inactive ROBAXIN-750 750 MG TABS 2 four times a day for 3 days as needed for muscle spasm, then 1 four times a day as needed ROBAXIN-750 750 MG TABS 148577 METHOCARBAMOL Inactive NITROSTAT 0.4 MG SUBL as directed NITROSTAT 0.4 MG SUBL 670022 NITROGLYCERIN Inactive METHOCARBAMOL 750 MG TABS 1 PO QID PRN METHOCARBAMOL 750 MG TABS 017706 METHOCARBAMOL Inactive VALIUM 5 MG TAB 1 po 30 minutes prior to your MRI VALIUM 5 MG TAB 521175 DIAZEPAM Inactive ANUSOL-HC 25 MG SUPPOSITORY 1 suppository rectally each evening as needed for anal fissure ANUSOL-HC 25 MG SUPPOSITORY 3432718 HYDROCORTISONE JAYDEN (RECTAL) Inactive ANUSOL-HC 25 MG SUPPOSITORY 1 rectally twice a day as needed for hemorrhoids ANUSOL-HC 25 MG SUPPOSITORY 2888091 HYDROCORTISONE JAYDEN (RECTAL) Inactive FLONASE 50 MCG/ACT SUSP 1 spray each nostril am and hs FLONASE 50 MCG/ACT SUSP 4893380 FLUTICASONE PROPIONATE Inactive DICLOFENAC SODIUM 75 MG TBEC 1 tablet by q 12 hours PRN headaches DICLOFENAC SODIUM 75 MG TBEC 727493 DICLOFENAC SODIUM Inactive PA VITAMIN D-3 2000 UNIT CAPS 1 CAP PO DAILY PA VITAMIN D-3 2000 UNIT CAPS CHOLECALCIFEROL Inactive PREVACID 30 MG CPDR Take 1 tablet by mouth daily-PRN PREVACID 30 MG CPDR 762070 LANSOPRAZOLE Inactive DOXYCYCLINE HYCLATE 100 MG TAB 1 tab twice a day for 14 days 2013 DOXYCYCLINE HYCLATE 100 MG TAB 8735980 DOXYCYCLINE HYCLATE Inactive XOPENEX 1.25 MG/3ML NEBU 1 neb every 4 hours if needed for cough/congestion XOPENEX 1.25 MG/3ML NEBU 225682 LEVALBUTEROL HCL Inactive CYCLOBENZAPRINE HCL 10 MG TABS 1/2 - 1 tab by mouth three times daily if needed for spasms/pain CYCLOBENZAPRINE HCL 10 MG TABS 201016 CYCLOBENZAPRINE HCL Inactive ALBUTEROL SULFATE 0.083 % NEBU SOLN one vial per nebulizer every 4-6 hours as needed ALBUTEROL SULFATE 0.083 % NEBU SOLN 632654 ALBUTEROL SULFATE Inactive CEFTIN 500 MG TAB 1 twice a day CEFTIN 500 MG TAB 878524 CEFUROXIME AXETIL Inactive ZOFRAN ODT 4 MG TBDP 1 pill dissolved by mouth every 4 hours if needed for nausea ZOFRAN ODT 4 MG TBDP 947872 ONDANSETRON Inactive ADULT ASPIRIN EC LOW STRENGTH 81 MG TBEC Take 1 tablet by mouth daily 2014 ADULT ASPIRIN EC LOW STRENGTH 81 MG TBEC 484067 ASPIRIN Inactive CALCIUM 600+D PLUS MINERALS 600-400 [...] or an apple NIACIN 500 MG TABS 501811 NIACIN Inactive NIASPAN 500 MG ORAL CR-TABS 1 pill nightly x 1 week, then 2 pills nightly x 1 week, then 3 pills nightly x 1 week, then 4 pills nightly NIASPAN 500 MG ORAL CR-TABS NIACIN (ANTIHYPERLIPIDEMIC) Inactive OXYCODONE HCL 5 MG ORAL CAPS 1 TAB PO Q HS OXYCODONE HCL 5 MG ORAL CAPS 0867505 OXYCODONE HCL Inactive FLUTICASONE PROPIONATE 50 MCG/ACT SUSP 1 to 2 sprays each nostril daily 04/21 FLUTICASONE PROPIONATE 50 MCG/ACT SUSP 3047383 FLUTICASONE PROPIONATE Inactive POLYTRIM 76276-6.1 UNIT/ML-% SOLN 1 gtt to affected eye q3h x 7 days POLYTRIM 35148-3.1 UNIT/ML-% SOLN 471394 POLYMYXIN B- TRIMETHOPRIM Inactive CHERATUSSIN AC 100-10 MG/5ML SYRP 1 tsp by mouth every 4 hours as needed for cough CHERATUSSIN AC 100-10 MG/5ML SYRP 108569 GUAIFENESIN-CODEINE Inactive LEVOTHYROXINE SODIUM 75 MCG TABS Take 1 tab daily LEVOTHYROXINE SODIUM 75 MCG TABS 380494 LEVOTHYROXINE SODIUM Inactive CLARITIN 10 MG TAB 1 tablet by mouth daily as needed for allergies CLARITIN 10 MG TAB 038092 LORATADINE Inactive FISH OIL 1000 MG CAPS 3 pills daily FISH OIL 1000 MG CAPS OMEGA-3 FATTY ACIDS Inactive ONDANSETRON 4 MG TBDP 1 q4h PRN nausea ONDANSETRON 4 MG TBDP 380386 ONDANSETRON Inactive ADVAIR DISKUS 250-50 MCG/DOSE AEPB 1 puff BID ADVAIR DISKUS 250-50 MCG/DOSE AEPB FLUTICASONE-SALMETEROL Inactive BACTRIM DS 800-160 MG TAB 1 tab by mouth twice daily BACTRIM DS 800-160 MG TAB 956325 TRIMETHOPRIM-SULFAMETHOXAZOLE Inactive AZITHROMYCIN 250 MG TABS 2 po qd x 1 day, then 1 po qd x 4 days AZITHROMYCIN 250 MG TABS 4265960 AZITHROMYCIN Inactive CEFDINIR 300 MG CAPS by mouth twice a day CEFDINIR 300 MG CAPS 725877 CEFDINIR Inactive AZITHROMYCIN 250 MG TABS 2 pills on day 1, then 1 pill daily x 4 days AZITHROMYCIN 250 MG TABS 2368554 AZITHROMYCIN Inactive DOXYCYCLINE HYCLATE 100 MG CAP 1 cap by mouth twice daily DOXYCYCLINE HYCLATE 100 MG CAP 6649629 DOXYCYCLINE HYCLATE Inactive FUROSEMIDE 20 MG TABS 1 pill by mouth daily, for edema FUROSEMIDE 20 MG TABS 689208 FUROSEMIDE Inactive AZITHROMYCIN 250 MG TABS 2 po qd x 1 day, then 1 po qd x 4 days AZITHROMYCIN 250 MG TABS 3259036 AZITHROMYCIN Inactive CEFTIN 500 MG TAB 1 twice a day CEFTIN 500 MG TAB 297990 CEFUROXIME AXETIL Inactive CEFDINIR 300 MG CAPS 1 po BID x 10 days CEFDINIR 300 MG CAPS 232427 CEFDINIR Inactive BACTRIM DS 800-160 MG TAB 1 tab by mouth twice daily BACTRIM DS 800-160 MG TAB 19820606 TRIMETHOPRIM-SULFAMETHOXAZOLE Inactive PREDNISONE 20 MG TAB 2 tabs daily for 3 days, 1 tab daily for 3 days, 1/2 tab daily for 2 days PREDNISONE 20 MG TAB 490737 PREDNISONE Inactive PREDNISONE 20 MG TAB take 3 tabs daily for 3 days, 2 tabs daily for 3 days, 1 tab daily for 3 days, 1/2 tab daily for 3 days PREDNISONE 20 MG TAB 287980 PREDNISONE Inactive BACTRIM DS 800-160 MG TAB 1 tab by mouth twice daily BACTRIM DS 800-160 MG TAB 19820606 TRIMETHOPRIM-SULFAMETHOXAZOLE Inactive Immunizations Vaccine Administration Date Value Standard Description Seasonal influenza vaccine, injectable, containing preservative, for > 3 years old (Afluria, FluLaval, Fluzone, Fluvirin, Fluarix, Agriflu(>=18 yo)) Fluzone (>3 yrs.) [YDN727] Influenza, seasonal, injectable influenza immunization (Flu Vax) has been administered Influenza - Unspecified Formulation [CVX88] influenza virus vaccine, unspecified formulation pneumococcal immunization administered Pneumovax 23 [CVX33] pneumococcal polysaccharide vaccine, 23 valent Seasonal influenza vaccine, injectable, containing preservative, for > 3 years old (Afluria, FluLaval, Fluzone, Fluvirin, Fluarix, Agriflu(>=18 yo)) Fluzone (>3 yrs.) [OIM147] Influenza, seasonal, injectable dT (Diphtheria and Tetanus) booster given given Td(adult) unspecified formulation Boostrix (Tetanus toxoid, reduced diphtheria toxoid and acellular pertussis vaccine, adsorbed), booster Boostrix [AGD556] tetanus toxoid, reduced diphtheria toxoid, and acellular pertussis vaccine, adsorbed Vital Signs Date Name Value Unit Range Description blood pressure, diastolic 88 mm[Hg] BP weldon [...] temperature weight E&M 253 [lb_av] Weight Measured blood pressure, diastolic 70 mm[Hg] BP weldon blood pressure, systolic 122 mm[Hg] BP sys pulse rate E&M 56 /min Heart rate temperature E&M 98.6 [degF] Body temperature weight E&M 249.5 [lb_av] Weight Measured blood pressure, diastolic 68 mm[Hg] BP weldon blood pressure, systolic 125 mm[Hg] BP sys pulse rate E&M 56 /min Heart rate temperature E&M 97.7 [degF] Body temperature weight E&M 248.5 [lb_av] Weight Measured blood pressure, diastolic 68 mm[Hg] BP weldon blood pressure, systolic 125 mm[Hg] BP sys pulse rate E&M 56 /min Heart rate temperature E&M 97.7 [degF] Body temperature weight E&M 247 [lb_av] Weight Measured Diagnostic Results Date Name Value Unit Range Description Lab Report: Lipid Panel, HEPATIC PANEL - Chemistry cholesterol, serum 166 mg/dL 470-112 5143/12/06 triglyceride, serum, fasting 86 mg/dL 30-200 HDL [...] urine, semiquantitative 5 specific gravity, urine 1.020 culture status No urine color yellow appearance, urine clear leukocyte esterase, urine, by dipstick negative nitrite, urine, semiquantitative negative urobilinogen, urine, semiquantitative (dipstick) negative protein, urine, semiquantitative (dipstick) negative Encounters Code Encounter Date Provider Facility CPT-16544 Level 3 Est. Patient 14:46:09 CDT Tisha Lambert APRN [facility] CPT-62401 Level 4 New Patient 16:13:15 CDT Todd Callaway MD [facility] CPT-76274 Level 4 Est. Patient 13:18:33 CDT Gab Padron MD [facility] CPT-58397 Level 3 Est. Patient 15:20:50 CDT Jared Og MD [facility]-43356 Level 3 Est. Patient 17:43:55 INTERNET SYSTEMS ADMINISTRATOR Gab Padron MD [facility] CPT-31090 Level 3 Est. Patient 17:07:49 INTERNET SYSTEMS ADMINISTRATOR Jared Og MD [facility] CPT-22413 Level 4 Est. Patient 19:55:18 INTERNET SYSTEMS ADMINISTRATOR Jared Og MD [facility]-78646 Level 3 Est. Patient 20:13:34 INTERNET SYSTEMS ADMINISTRATOR Jared Og MD [facility] CPT-54668 Level 4 Est. Patient 16:31:27 CDT Gab Padron MD [facility] CPT-74820 Level 2 Est. Patient 12:23:38 CDT Jared Og MD [facility]-01666 Level 3 Est. Patient 11:01:51 CDT Gab Padron MD [facility]-28562 Level 3 Est. Patient 15:27:02 CDT Jared Og MD [facility]-64016 Level 4 Est. Patient 09:25:27 CDT Gab Padron MD [facility]-43120 Level 3 Est. Patient 10:29:41 CDT Rodrigo Sarah [facility]-44232 Level 4 Est. Patient 17:51:05 CDT Gab Padron MD [facility]-08691 Level 3 Est. Patient 14:18:08 CDT Gab Padron MD [facility]-34061 Level 4 Est. Patient 10:18:54 CDT Gab Padron MD [facility]-93002 Level 3 Est. Patient 11:30:07 CDT Rodrigo Sarah [facility]-76049 Level 4 Est. Patient 21:02:30 INTERNET SYSTEMS ADMINISTRATOR Gab Padron MD [facility]-60285 Level 3 Est. Patient 11:02:19 INTERNET SYSTEMS ADMINISTRATOR Gab Padron MD [facility] CPT-39888 Level 4 Est. Patient 22:24:31 INTERNET SYSTEMS ADMINISTRATOR Gab Padron MD [facility] CPT-72559 Level 3 Est. Patient 18:33:46 INTERNET SYSTEMS ADMINISTRATOR Gab Padron MD [facility]-01374 Level 3 Est. Patient 16:19:11 CDT Yolande Lindsay MD PhD [facility]-71777 Level 3 Est. Patient 18:59:14 CDT Yolande Lindsay MD [facility]-64381 Level 4 Est. Patient 21:29:26 CDT Yolande Lindsay MD [facility]-10031 Level 3 Est. Patient 07:37:45 CDT Yolande Lindsay MD [facility] CPT-59065 Level 3 Est. Patient 17:03:46 CDT Yolande Lindsay MD [facility]-06267 Level 4 Est. Patient 20:02:13 INTERNET SYSTEMS ADMINISTRATOR Yolande Lindsay MD [facility] CPT-03129 Level 3 Est. Patient 16:02:07 INTERNET SYSTEMS ADMINISTRATOR Alexis Ordaz MD [facility] CPT-88035 Level 3 Est. Patient 12:41:24 INTERNET SYSTEMS ADMINISTRATOR Yolande Lindsay MD [facility]-27844 Level 3 Est. Patient 15:41:20 INTERNET SYSTEMS ADMINISTRATOR Yolande Lindsay MD [facility]-60580 Level 3 Est. Patient 13:20:02 INTERNET SYSTEMS ADMINISTRATOR Yolande Lindsay MD [facility] CPT-96227 Level 3 Est. Patient 15:00:38 CDT Jared Og MD [facility] CPT-13720 Level 3 Est. Patient 10:22:32 CDT Yolande Lindsay MD [facility] CPT-03570 Level 3 Est. Patient 17:12:58 CDT Yolande Lindsay MD [facility] CPT-48450 Level 4 Est. Patient 13:30:58 CDT Yolande Lindsay MD [facility] CPT-24666 Level 4 New Patient 09:02:42 CDT Jared Og MD [facility] CPT-49951 Level 3 Est. Patient 08:19:07 CDT Yolande Lindsay MD [facility] CPT-76497 Level 3 Est. Patient 12:00:13 INTERNET SYSTEMS ADMINISTRATOR Gab Padron MD [facility] CPT-10272 Level 3 Est. Patient 16:15:23 INTERNET SYSTEMS ADMINISTRATOR Yolande Lindsay MD [facility]-71080 Level 2 Est. Patient 19:47:15 CDT Yolande Lindsay MD [facility]-38649 Level 3 Est. Patient 21:38:31 CDT Yolande Lindsay MD [facility]-21810 Level 3 Est. Patient 10:25:12 CDT Adiel PERAZA [facility]-02803 Level 4 Est. Patient 10:51:58 CDT Yolande Lindsay MD [facility]-54238 Level 3 Est. Patient 14:04:55 INTERNET SYSTEMS ADMINISTRATOR Rodrigo Sarah [facility]-65656 Level 3 Est. Patient 10:46:35 INTERNET SYSTEMS ADMINISTRATOR Rodrigo Sarah [facility] [place]-[id number] Level 3 Est. Patient 14:24:37 INTERNET SYSTEMS ADMINISTRATOR Yolande Lindsay MD [facility]-[address] Level 3 Est. Patient 17:41:58 INTERNET SYSTEMS ADMINISTRATOR Yolande Lindsay MD [facility]-[address] Level 2 Est. Patient 22:01:41 INTERNET SYSTEMS ADMINISTRATOR Rodrigo Sarah [facility] [place]-[address] Level 2 Est. Patient 22:01:11 INTERNET SYSTEMS ADMINISTRATOR Rodrigo Sarah [facility] [place]-[address] Level 3 Est. Patient 10:12:29 INTERNET SYSTEMS ADMINISTRATOR Rodrigo Sarah [facility] CPT-25352 Level 3 Est. Patient 11:05:44 CDT Alexis Ordaz MD [facility]-[address] Level 3 Est. Patient 14:57:20 CDT Yolande Lindsay MD [facility]-[address] Level 3 Est. Patient 14:40:57 CDT Yolande Lindsay MD [facility]-[address] Level 3 Est. Patient 20:55:40 CDT Yolande Lindsay MD PhD [facility] CPT-67487 Level 3 Est. Patient 12:42:38 INTERNET SYSTEMS ADMINISTRATOR Yolande Lindsay MD PhD [facility] CPT-81222 Level 3 Est. Patient 11:54:49 INTERNET SYSTEMS ADMINISTRATOR Des Hines MD [facility] CPT-45627 Level 3 Est. Patient 17:06:38 CDT Dewayne PERAZA [facility] Procedures Code Procedure Name Date Entry Date Standard Description CPT-J2930 Solu Medrol 125 mg (Methyl Prednisolone Sodium Succinate) 13:19:02 CDT CPT-33152 Abx/Therapy Injection 13:19:02 CDT CPT-J2930 Solu Medrol 125 mg (Methyl Prednisolone Sodium Succinate) 13:05:03 CDT CPT-89875 Hip, complete, 2-3 views - XRAY USE ONLY 17:19:04 INTERNET SYSTEMS ADMINISTRATOR CPT-19597 Venipuncture Draw Fee 08:37:59 INTERNET SYSTEMS ADMINISTRATOR CPT-94385 Liver Profile - LAB USE ONLY 08:37:59 INTERNET SYSTEMS ADMINISTRATOR CPT-03386 Lipid - LAB USE ONLY 08:37:58 INTERNET SYSTEMS ADMINISTRATOR CPT-86991 First Vx - Ix admin via ID IM or jet injects without counseling by physician 11:52:31 CDT CPT-11733 Fluzone Preservative Free Intramuscular Suspension 11:52 :31 CDT CPT-75749 Foot, left, comp min 3V - XRAY USE ONLY 09:24:54 CDT CPT-16701 Abd single AP View - XRAY USE ONLY 11:16:17 CDT CPT-89972 T spine AP/ Lat - XRAY USE ONLY 09:34:21 CDT CPT-40269 Chest 2V Frontal and Lat - XRAY USE ONLY 10:48:51 CDT CPT-29040 LS spine comp w obliq 13:28:00 INTERNET SYSTEMS ADMINISTRATOR CPT-J1040 Depo Medrol 80 mg (Methyl Prednisolone Acetate) 10:51: 28 INTERNET SYSTEMS ADMINISTRATOR CPT-J1100 Decadron 8mg (Dexamethasone) 10:51:28 INTERNET SYSTEMS ADMINISTRATOR CPT-76716 Abx/Therapy Injection 10:51:28 INTERNET SYSTEMS ADMINISTRATOR CPT-J1100 Decadron 8mg (Dexamethasone) 21:02:30 INTERNET SYSTEMS ADMINISTRATOR CPT-J1040 Depo Medrol 80 mg (Methyl Prednisolone Acetate) 21:02: 30 INTERNET SYSTEMS ADMINISTRATOR [id number] Event Monitor - MC Transmission 09:12:32 CDT 08/06 [id number] Event Monitor - MC review and interp 09:12:32 CDT [id number] Event Monitor - MC recording 09:12:32 CDT CPT-52082 EKG Trac and Interp 16:50:22 CDT CPT-J1030 Depo Medrol 40 mg (Methyl Prednisolone Acetate) 17:05: 54 CDT CPT-J1100 Decadron 4mg (Dexamethasone) 17:05:54 CDT CPT-84224 Abx/Therapy Injection 17:05:54 CDT CPT-J1100 Decadron 4mg (Dexamethasone) 16:55:28 CDT CPT-J1030 Depo Medrol 40 mg (Methyl Prednisolone Acetate) 16:55: 28 CDT CPT-24953 Ankle Complete - Min 3V 15:58:50 CDT CPT-11179 Knee 3V 15:58:50 CDT CPT-68528 Hip comp min 2V 15:58:50 CDT CPT-J2270 Morphine Sulfate 10 mg 14:25:44 INTERNET SYSTEMS ADMINISTRATOR CPT-J2550 Phenergan 12.5 mg (Promethazine) 14:25:44 INTERNET SYSTEMS ADMINISTRATOR CPT-03055 Abx/Therapy Injection 14:25:44 INTERNET SYSTEMS ADMINISTRATOR CPT-J2550 Phenergan 12.5 mg (Promethazine) 14:08:03 INTERNET SYSTEMS ADMINISTRATOR CPT-J2270 Morphine Sulfate 10 mg 14:08:03 INTERNET SYSTEMS ADMINISTRATOR CPT-80799 Bladder Scan 15:00:38 CDT CPT-TCMM Transitional Care Mgmt-Moderate 09:52:22 CDT CPT-J1030 Depo Medrol 40 mg (Methyl Prednisolone Acetate) 10:55: 18 CDT CPT-J1100 Decadron 4mg (Dexamethasone) 10:55:18 CDT CPT-25210 Abx/Therapy Injection 10:55:18 CDT CPT-J1030 Depo Medrol 40 mg (Methyl Prednisolone Acetate) 10:22: 32 CDT CPT-J1100 Decadron 4mg (Dexamethasone) 10:22:32 CDT CPT-39176 Postop F/U Visit 14:37:13 CDT CPT-14360 Ankle Complete - Min 3V 17:11:58 CDT CPT-48616 Foot comp min 3V 17:11:58 CDT CPT-37754 Bladder Scan 09:56:58 CDT CPT-89804 Postop F/U Visit 09:56:58 CDT CPT-84603 Cystoscopy 09:02:42 CDT CPT-77354 Bladder Scan 09:02:42 CDT CPT-72174 Abd single AP View 16:00:35 CDT CPT-28608 Administration single or combination vaccine inc oral 10 :15:43 CDT CPT-26059 Influenza split virus > age 3 10:15:43 CDT CPT-37668 Nail Avulsion 09:24:57 CDT CPT-OV Office Visit 11:15:41 CDT CPT-07680 Abx/Therapy Injection 10:51:30 CDT CPT-J3301 Kenalog 40 mg (Triamcinolone Acetonide) 10:25:12 CDT CPT-J1100 Decadron 4mg (Dexamethasone) 10:25:12 CDT CPT-49328 Anoscopy diagnostic 10:36:12 CDT CPT-OV Office Visit 15:34:31 CDT CPT-80374 Abx/Therapy Injection 08:21:15 INTERNET SYSTEMS ADMINISTRATOR CPT-J1885 Toradol 60 mg (Ketorolac) 10:46:35 INTERNET SYSTEMS ADMINISTRATOR CPT-OV Office Visit 19:51:16 INTERNET SYSTEMS ADMINISTRATOR CPT-46702 Spec Collection and Handling Fee 14:34:18 INTERNET SYSTEMS ADMINISTRATOR CPT-PV Prev. Care Visit 14:19:18 INTERNET SYSTEMS ADMINISTRATOR CPT-82691 Postop F/U Visit 14:47:51 INTERNET SYSTEMS ADMINISTRATOR CPT-35370 Postop F/U Visit 15:15:14 INTERNET SYSTEMS ADMINISTRATOR CPT-43592 Postop F/U Visit 14:41:43 CDT CPT-80534 Postop F/U Visit 15:47:46 CDT CPT-OV Office Visit 15:27:23 CDT CPT-OV Office Visit 17:20:34 CDT CPT-91746 Abx/Therapy Injection 15:05:57 CDT CPT-J1100 Decadron 8mg (Dexamethasone) 14:44:57 CDT CPT-J1040 Depo Medrol 80 mg (Methyl Prednisolone Acetate) 14:44: 57 CDT CPT-JTINJ Joint Injection 10:17:37 CDT CPT-06642 Administration 2+ single or combination vaccines inc oral 13:01:46 INTERNET SYSTEMS ADMINISTRATOR CPT-82340 Administration single or combination vaccine inc oral 13 :01:46 INTERNET SYSTEMS ADMINISTRATOR CPT-67700 Pneumovax 13:01:46 INTERNET SYSTEMS ADMINISTRATOR CPT-84460 Influenza split virus > age 3 13:01:46 INTERNET SYSTEMS ADMINISTRATOR CPT-08264 Administration single or combination vaccine inc oral 08 :56:49 CDT CPT-36669 Tdap 08:56:49 CDT
--- OUTSIDE RECORDS SUMMARY | 2017-03-21 20:08 | XMS REPORT ---
Author Author [facility] Medical Staff Organization [facility] [employer] [facility] Address [address] [id number] Phone [phone] Care Team Providers Care Pockets And Pieces Necktie Operator Name Role Phone REGAN HUTSON, EVELYN PP [phone] Summary purpose TRANSITION OF CARE AUTO GENERATION [...] recorded for this patient visit. Functional status Functional Status Finding Observation Time Abdomen Appearance obese :30 Abdomen soft :30 Bajwa no :30 Urination normal :30 Quality sym/unlabored :30 Cough absent :30 Secretions no :30 Breath Sounds RUL clear :30 Breath Sounds RML clear :30 Breath Sounds RLL clear :30 Breath Sounds LESLIE clear :30 Breath Sounds LLL clear :30 Airway natural : Chest Tube no :30 Oxygen no :20 Temp >100.4 no :20 Temp <96.8 no : Chills with rigors no : HR > 90bpm no :20 Respirations > 20 no : Systolic <90 no :20 headache stiff neck no :20 Nursing Note ibuprofen 600mg PO admin, radiology in room for xray 05-23-2015 23:50 Vital signs Type Value Date Respiration Rate 18breaths per minute :20 Pulse 91beats per minute :20 Oxygen Saturation 98% :20 BP Systolic 124mmHg :20 BP Diastolic 70mmHg :20 Temperature 98.3F :20 Social history Type Value Smoking Status FORMER SMOKER Treatment Plan No treatment plan text is available for this visit. Hospital discharge instructions Dismissal Condition good Disposition on DC home DC Inst/Educ Give yes Med/Side Effects Rev yes PNE Vac Jan 13, 2015 Flu Vac Jan 13, 2015
--- OUTSIDE RECORDS SUMMARY | 2017-03-21 20:08 | XMS REPORT | Clinical Summary ---
Author Author Admin, MARGRET Organization [place] Address Unknown Phone Unavailable Allergies, Adverse Reactions, Alerts Allergy Name Reaction Description Start Date Severity Status Provider VALENTIN Critical Active Rodrigo Montemayorl [facility] CHLORHEXIDINE GLUCONATE tongue and gums swollen Critical Active Hoa Kabaford RMA NORFLEX Rash Critical Active Rowenaina Farshadzell [facility] TRAZODONE HCL sees things Critical Active Dewayne [...] infarction, hx of 412 Active Hoa Otto [facility] Old myocardial infarction Pelvic pain 789.09 [...] factitious illness Flank pain, left 789.09 Resolved Gba Padron MD Abdominal pain, other specified site; [...] Lindsay MD PhD ABDOMINAL PAIN ICD-789.00 Inactive Yloande Lindsay MD PhD PLANTAR FASCIITIS ICD-728.71 Inactive Yolande Lindsay MD PhD UTI ICD-599.0 Inactive Yolande Lindasy MD PhD OTHER SCREENING MAMMOGRAM ICD-V76.12 Inactive [...] TOENAIL ICD-703.0 Inactive Yolande Lindsay MD PhD INGRROGELIO CRYSTALNAIL ICD-703.0 Inactive Yolande Lindsay MD PhD Hip [...] daily for 2 days end 02/05/17 PREDNISONE 17659078055 No Longer Active Gab Padron MD Active ZANTAC 150 MG TAB 1 by mouth twice daily RANITIDINE HCL 81075022185 Active Gab Padron MD Active TRIAMCINOLONE ACETONIDE 0.1 % CREA Apply to affected area 3 times daily for up to 2 weeks TRIAMCINOLONE ACETONIDE 09565978226 Active Tisha Lambert APRN Active LISINOPRIL 40 MG TABS 1 tablet by mouth daily LISINOPRIL 87212002475 Active Tisha Lambert APRN Active IBUPROFEN 600 MG TAB 1 tablet by mouth every 6 hours for 7 days, then 1 tablet every 6 hours as needed. Take with food IBUPROFEN 89897523660 No Longer Active Tisha Lambert APRN Active PREDNISONE 20 MG TAB 1 tab twice daily for 3 day, then one daily for three days PREDNISONE 98764395650 No Longer Active Tisha Lambert APRN Active TRIAMCINOLONE ACETONIDE 0.1 % CREA apply bid sparingly to rash TRIAMCINOLONE ACETONIDE 54109089245 No Longer Active Gab Padron MD Active TRAMADOL HCL 50 MG TABS 1 tab po every 6 hrs prn pain TRAMADOL HCL 91979673659 No Longer Active Gab Padron MD Active BACTRIM DS 800-160 MG TAB 1 tab by mouth twice daily TRIMETHOPRIM-SULFAMETHOXAZOLE 60250058514 No Longer Active Tisha Lambert APRN Active ADVAIR DISKUS 250-50 MCG/DOSE AEPB 1 puff BID FLUTICASONE-SALMETEROL 68918211234 No Longer Active Todd Callaway MD Active ONDANSETRON 4 MG TBDP 1 q4h PRN nausea ONDANSETRON 10869482558 No Longer Active LONNIE Iglesias Active FISH OIL 1000 MG CAPS 3 pills daily OMEGA-3 FATTY ACIDS 20550429399 No Longer Active LONNIE Iglesias Active CETIRIZINE HCL 10 MG ORAL TABS 1 po qd PRN Allergies CETIRIZINE HCL 23410326267 Active Gab Padron MD Active CLARITIN 10 MG TAB 1 tablet by mouth daily as needed for allergies LORATADINE 40809850608 No Longer Active Gab Padron MD Active PREDNISONE 20 MG TAB take 3 tabs daily for 3 days, 2 tabs daily for 3 days, 1 tab daily for 3 days, 1/2 tab daily for 3 days PREDNISONE 02082081607 No Longer Active Tisha Lambert APRN Active PREDNISONE 20 MG TAB 2 tabs daily for 3 days, 1 tab daily for 3 days, 1/2 tab daily for 2 days PREDNISONE 46852301578 No Longer Active Gab Padron MD Active ZOFRAN ODT 4 MG TBDP 1 po q6hr PRN Nausea ONDANSETRON 42509062706 Active Gab Padron MD Active BACTRIM DS 800-160 MG TAB 1 tab by mouth twice daily TRIMETHOPRIM-SULFAMETHOXAZOLE 54074618445 No Longer Active Gab Padron MD Active LEVOTHYROXINE SODIUM 75 MCG TABS Take 1 tab daily LEVOTHYROXINE SODIUM 07396444152 No Longer Active Mariana FLEMING Active SYNTHROID 88 MCG ORAL TABS Take one by mouth daily LEVOTHYROXINE SODIUM 67111072427 Active Tisha Lambert APRN Active CHERATUSSIN AC 100-10 MG/5ML SYRP 1 tsp by mouth every 4 hours as needed for cough GUAIFENESIN-CODEINE 12461744321 No Longer Active Gab Padron MD Active POLYTRIM 51189-9.1 UNIT/ML-% SOLN 1 gtt to affected eye q3h x 7 days POLYMYXIN B-TRIMETHOPRIM 88028188251 No Longer Active Gab Padron MD Active FLUTICASONE PROPIONATE 50 MCG/ACT SUSP 1 to 2 sprays each nostril daily 04/21 FLUTICASONE PROPIONATE 53177197760 No Longer Active Gab Padron MD Active TRILEPTAL 600 MG TABS Take one 1 tablet in Am and 1 tablet at night OXCARBAZEPINE 07572179860 Active Gab Padron MD Active CEFDINIR 300 MG CAPS 1 po BID x 10 days CEFDINIR 14028175346 No Longer Active Rodrigo Sarah APRN Active CEFTIN 500 MG TAB 1 twice a day CEFUROXIME AXETIL 13363153562 No Longer Active Gab Padron MD Active AZITHROMYCIN 250 MG TABS 2 po qd x 1 day, then 1 po qd x 4 days AZITHROMYCIN 44288746060 No Longer Active Rodrigo Sarah APRN Active OXYCODONE HCL 5 MG ORAL CAPS 1 TAB PO Q HS OXYCODONE HCL 22969065493 No Longer Active Rodrigo Sarah APRN Active NIASPAN 500 MG ORAL CR-TABS 1 pill nightly x 1 week, then 2 pills nightly x 1 week, then 3 pills nightly x 1 week, then 4 pills nightly NIACIN (ANTIHYPERLIPIDEMIC) 36150401923 No Longer Active Rodrigo Sarah APRN Active NIACIN 500 MG TABS 1 pill by mouth nightly x 1 week, then 2 pills x 1 week, then 3 pills x 1 week, then 4 pills nightly - take after evening meal, with applesauce or an apple NIACIN 54032921148 No Longer Active Yolande Lindsay MD PhD Active FUROSEMIDE 20 MG TAB 1 tablet by mouth daily FUROSEMIDE 39194020014 Active Gab Padron MD Active FUROSEMIDE 20 MG TABS 1 pill by mouth daily, for edema FUROSEMIDE 78430391220 No Longer Active Yolande Lindsay MD PhD Active ATORVASTATIN CALCIUM 10 MG TABS 1 pill by mouth daily, for cholesterol 09/06 ATORVASTATIN CALCIUM 78819837179 Active Gab Padron MD Active CALCIUM 600+D PLUS MINERALS 600-400 MG-UNIT ORAL CHEW 1 tab by mouth daily CALCIUM CARBONATE-VIT D-MIN 26625819211 No Longer Active Yolande Lindsay MD PhD Active CYCLOBENZAPRINE HCL 10 MG TABS 1 tablet by mouth three times daily as needed for muscle spasm/pain CYCLOBENZAPRINE HCL 69672985488 Active Yolande Lindsay MD PhD Active ADULT ASPIRIN EC LOW STRENGTH 81 MG TBEC Take 1 tablet by mouth daily 2014 ASPIRIN 40683386549 No Longer Active Yolande Lindsay MD PhD Active ZOFRAN ODT 4 MG TBDP 1 pill dissolved by mouth every 4 hours if needed for nausea ONDANSETRON 38564199898 No Longer Active Yolande Lindsay MD PhD Active CEFTIN 500 MG TAB 1 twice a day CEFUROXIME AXETIL 04097336153 No Longer Active Yolande Lindsay MD PhD Active ALBUTEROL SULFATE 0.083 % NEBU SOLN one vial per nebulizer every 4-6 hours as needed ALBUTEROL SULFATE 09166082708 No Longer Active Alexis Ordaz MD Active DOXYCYCLINE HYCLATE 100 MG CAP 1 cap by mouth twice daily DOXYCYCLINE HYCLATE 48684708650 No Longer Active Yolande Lindsay MD PhD Active CYCLOBENZAPRINE HCL 10 MG TABS 1/2 - 1 tab by mouth three times daily if needed for spasms/pain CYCLOBENZAPRINE HCL 86508178785 No Longer Active Yolande Lindsay MD PhD Active AZITHROMYCIN 250 MG TABS 2 pills on day 1, then 1 pill daily x 4 days AZITHROMYCIN 62449426622 No Longer Active Yolande Lindsay MD PhD Active XOPENEX 1.25 MG/3ML NEBU 1 neb every 4 hours if needed for cough/congestion LEVALBUTEROL HCL 84048295797 No Longer Active Yolande Lindsay MD PhD Active DOXYCYCLINE HYCLATE 100 MG TAB 1 tab twice a day for 14 days 2013 DOXYCYCLINE HYCLATE 41741775700 No Longer Active Yolande Lindsay MD PhD Active PREVACID 30 MG CPDR Take 1 tablet by mouth daily-PRN LANSOPRAZOLE 36420779357 No Longer Active Yolande Lindsay MD PhD Active PA VITAMIN D-3 2000 UNIT CAPS 1 CAP PO DAILY CHOLECALCIFEROL 96764559179 No Longer Active Yolande Lindsay MD PhD Active CEFDINIR 300 MG CAPS by mouth twice a day CEFDINIR 61110581165 No Longer Active Gab Padron MD Active TOPAMAX 50 MG TABS 1 PO twice daily TOPIRAMATE 37726643965 Active Yolande Lindsay MD PhD Active AZITHROMYCIN 250 MG TABS 2 po qd x 1 day, then 1 po qd x 4 days AZITHROMYCIN 88047814252 No Longer Active Yolande Lindsay MD PhD Active DICLOFENAC SODIUM 75 MG TBEC 1 tablet by q 12 hours PRN headaches DICLOFENAC SODIUM 88238345313 No Longer Active Yolande Lindsay MD PhD Active FLONASE 50 MCG/ACT SUSP 1 spray each nostril am and hs FLUTICASONE PROPIONATE 83227355945 No Longer Active Todd Callaway MD Active ANUSOL-HC 25 MG SUPPOSITORY 1 rectally twice a day as needed for hemorrhoids HYDROCORTISONE JAYDEN (RECTAL) 09910966431 No Longer Active Yolande Lindsay MD PhD Active ANUSOL-HC 25 MG SUPPOSITORY 1 suppository rectally each evening as needed for anal fissure HYDROCORTISONE JAYDEN (RECTAL) 99902435494 No Longer Active LONNIE Iglesias Active VALIUM 5 MG TAB 1 po 30 minutes prior to your MRI DIAZEPAM 00771075620 No Longer Active LONNIE Iglesias Active METHOCARBAMOL 750 MG TABS 1 PO QID PRN METHOCARBAMOL 73663436846 No Longer Active Daphne Wetzel APRN Active NITROSTAT 0.4 MG SUBL as directed NITROGLYCERIN 20131684736 No Longer Active Rodrigo Sarah APRN Active ROBAXIN-750 750 MG TABS 2 four times a day for 3 days as needed for muscle spasm, then 1 four times a day as needed METHOCARBAMOL 76034434603 No Longer Active Rodrigo Sarah APRN Active HYDROCODONE-ACETAMINOPHEN 5-325 MG TABS 1 q 4-6 hrs prn HYDROCODONE-ACETAMINOPHEN 07295504990 No Longer Active Silvestrellnacho Sarah APRN Active VERAPAMIL HCL CR 180 MG CR-TABS TAKE 1 TAB DAILY VERAPAMIL HCL 52391215684 No Longer Active Yolande Lindsay MD PhD Active BACTRIM DS 800-160 MG TAB 1 tab by mouth twice daily TRIMETHOPRIM-SULFAMETHOXAZOLE 80510205673 No Longer Active Yolande Lindsay MD PhD Active NEXIUM 40 MG PACK 1 by mouth daily ESOMEPRAZOLE MAGNESIUM 76768510834 No Longer Active Des Hines MD Active EPIPEN 2-CHARLETTE 0.3 MG/0.3ML OMARI as need for allergic reaction EPINEPHRINE 72497278305 Active Yolande Lindsay MD PhD Active NEXIUM 40 MG CPDR 1 PO Q D DAY ESOMEPRAZOLE MAGNESIUM 91174761501 No Longer Active Sadia Perry RN Active NEXIUM 40 MG PACK 1 by mouth daily NEXIUM 40 MG PACK ESOMEPRAZOLE MAGNESIUM Inactive VERAPAMIL HCL CR 180 MG CR-TABS TAKE 1 TAB DAILY VERAPAMIL HCL CR 180 MG CR-TABS VERAPAMIL HCL Inactive HYDROCODONE-ACETAMINOPHEN 5-325 MG TABS 1 q 4-6 hrs prn HYDROCODONE-ACETAMINOPHEN 5-325 MG TABS 223645 HYDROCODONE-ACETAMINOPHEN Inactive ROBAXIN-750 750 MG TABS 2 four times a day for 3 days as needed for muscle spasm, then 1 four times a day as needed ROBAXIN-750 750 MG TABS 714346 METHOCARBAMOL Inactive NITROSTAT 0.4 MG SUBL as directed NITROSTAT 0.4 MG SUBL 273057 NITROGLYCERIN Inactive METHOCARBAMOL 750 MG TABS 1 PO QID PRN METHOCARBAMOL 750 MG TABS 499109 METHOCARBAMOL Inactive VALIUM 5 MG TAB 1 po 30 minutes prior to your MRI VALIUM 5 MG TAB 625747 DIAZEPAM Inactive ANUSOL-HC 25 MG SUPPOSITORY 1 suppository rectally each evening as needed for anal fissure ANUSOL-HC 25 MG SUPPOSITORY 1649420 HYDROCORTISONE JAYDEN (RECTAL) Inactive ANUSOL-HC 25 MG SUPPOSITORY 1 rectally twice a day as needed for hemorrhoids ANUSOL-HC 25 MG SUPPOSITORY 1921691 HYDROCORTISONE JAYDEN (RECTAL) Inactive FLONASE 50 MCG/ACT SUSP 1 spray each nostril am and hs FLONASE 50 MCG/ACT SUSP 7588066 FLUTICASONE PROPIONATE Inactive DICLOFENAC SODIUM 75 MG TBEC 1 tablet by q 12 hours PRN headaches DICLOFENAC SODIUM 75 MG TBEC 467392 DICLOFENAC SODIUM Inactive PA VITAMIN D-3 2000 UNIT CAPS 1 CAP PO DAILY PA VITAMIN D-3 2000 UNIT CAPS CHOLECALCIFEROL Inactive PREVACID 30 MG CPDR Take 1 tablet by mouth daily-PRN PREVACID 30 MG CPDR 852490 LANSOPRAZOLE Inactive DOXYCYCLINE HYCLATE 100 MG TAB 1 tab twice a day for 14 days 2013 DOXYCYCLINE HYCLATE 100 MG TAB 8728887 DOXYCYCLINE HYCLATE Inactive XOPENEX 1.25 MG/3ML NEBU 1 neb every 4 hours if needed for cough/congestion XOPENEX 1.25 MG/3ML NEBU 116127 LEVALBUTEROL HCL Inactive CYCLOBENZAPRINE HCL 10 MG TABS 1/2 - 1 tab by mouth three times daily if needed for spasms/pain CYCLOBENZAPRINE HCL 10 MG TABS 141642 CYCLOBENZAPRINE HCL Inactive ALBUTEROL SULFATE 0.083 % NEBU SOLN one vial per nebulizer every 4-6 hours as needed ALBUTEROL SULFATE 0.083 % NEBU SOLN 666384 ALBUTEROL SULFATE Inactive CEFTIN 500 MG TAB 1 twice a day CEFTIN 500 MG TAB 134019 CEFUROXIME AXETIL Inactive ZOFRAN ODT 4 MG TBDP 1 pill dissolved by mouth every 4 hours if needed for nausea ZOFRAN ODT 4 MG TBDP 574582 ONDANSETRON Inactive ADULT ASPIRIN EC LOW STRENGTH 81 MG TBEC Take 1 tablet by mouth daily 2014 ADULT ASPIRIN EC LOW STRENGTH 81 MG TBEC 524871 ASPIRIN Inactive CALCIUM 600+D PLUS MINERALS 600-400 [...] or an apple NIACIN 500 MG TABS 311007 NIACIN Inactive NIASPAN 500 MG ORAL CR-TABS 1 pill nightly x 1 week, then 2 pills nightly x 1 week, then 3 pills nightly x 1 week, then 4 pills nightly NIASPAN 500 MG ORAL CR-TABS NIACIN (ANTIHYPERLIPIDEMIC) Inactive OXYCODONE HCL 5 MG ORAL CAPS 1 TAB PO Q HS OXYCODONE HCL 5 MG ORAL CAPS 2613920 OXYCODONE HCL Inactive FLUTICASONE PROPIONATE 50 MCG/ACT SUSP 1 to 2 sprays each nostril daily 04/21 FLUTICASONE PROPIONATE 50 MCG/ACT SUSP 9254809 FLUTICASONE PROPIONATE Inactive POLYTRIM 87542-2.1 UNIT/ML-% SOLN 1 gtt to affected eye q3h x 7 days POLYTRIM 06469-3.1 UNIT/ML-% SOLN 418674 POLYMYXIN B- TRIMETHOPRIM Inactive CHERATUSSIN AC 100-10 MG/5ML SYRP 1 tsp by mouth every 4 hours as needed for cough CHERATUSSIN AC 100-10 MG/5ML SYRP 806550 GUAIFENESIN-CODEINE Inactive LEVOTHYROXINE SODIUM 75 MCG TABS Take 1 tab daily LEVOTHYROXINE SODIUM 75 MCG TABS 099985 LEVOTHYROXINE SODIUM Inactive CLARITIN 10 MG TAB 1 tablet by mouth daily as needed for allergies CLARITIN 10 MG TAB 202298 LORATADINE Inactive FISH OIL 1000 MG CAPS 3 pills daily FISH OIL 1000 MG CAPS OMEGA-3 FATTY ACIDS Inactive ONDANSETRON 4 MG TBDP 1 q4h PRN nausea ONDANSETRON 4 MG TBDP 153676 ONDANSETRON Inactive ADVAIR DISKUS 250-50 MCG/DOSE AEPB 1 puff BID ADVAIR DISKUS 250-50 MCG/DOSE AEPB FLUTICASONE-SALMETEROL Inactive TRAMADOL HCL 50 MG TABS 1 tab po every 6 hrs prn pain TRAMADOL HCL 50 MG TABS 665856 TRAMADOL HCL Inactive TRIAMCINOLONE ACETONIDE 0.1 % CREA apply bid sparingly to rash TRIAMCINOLONE ACETONIDE 0.1 % CREA 6931515 TRIAMCINOLONE ACETONIDE Inactive PREDNISONE 20 MG TAB 1 tab twice daily for 3 day, then one daily for three days PREDNISONE 20 MG TAB 055186 PREDNISONE Inactive IBUPROFEN 600 MG TAB 1 tablet by mouth every 6 hours for 7 days, then 1 tablet every 6 hours as needed. Take with food IBUPROFEN 600 MG TAB 491123 IBUPROFEN Inactive BACTRIM DS 800-160 MG TAB 1 tab by mouth twice daily BACTRIM DS 800-160 MG TAB 19820606 TRIMETHOPRIM-SULFAMETHOXAZOLE Inactive AZITHROMYCIN 250 MG TABS 2 po qd x 1 day, then 1 po qd x 4 days AZITHROMYCIN 250 MG TABS 279744 AZITHROMYCIN Inactive CEFDINIR 300 MG CAPS by mouth twice a day CEFDINIR 300 MG CAPS 20020708 CEFDINIR Inactive AZITHROMYCIN 250 MG TABS 2 pills on day 1, then 1 pill daily x 4 days AZITHROMYCIN 250 MG TABS 734149 AZITHROMYCIN Inactive DOXYCYCLINE HYCLATE 100 MG CAP 1 cap by mouth twice daily DOXYCYCLINE HYCLATE 100 MG CAP 2804720 DOXYCYCLINE HYCLATE Inactive FUROSEMIDE 20 MG TABS 1 pill by mouth daily, for edema FUROSEMIDE 20 MG TABS 482283 FUROSEMIDE Inactive AZITHROMYCIN 250 MG TABS 2 po qd x 1 day, then 1 po qd x 4 days AZITHROMYCIN 250 MG TABS 883434 AZITHROMYCIN Inactive CEFTIN 500 MG TAB 1 twice a day CEFTIN 500 MG TAB 620805 CEFUROXIME AXETIL Inactive CEFDINIR 300 MG CAPS [...] for 2 days PREDNISONE 20 MG TAB 370334 PREDNISONE Inactive PREDNISONE 20 MG TAB take 3 tabs daily for 3 days, 2 tabs daily for 3 days, 1 tab daily for 3 days, 1/2 tab daily for 3 days PREDNISONE 20 MG TAB 961495 PREDNISONE Inactive BACTRIM DS 800-160 MG TAB 1 tab by mouth twice daily BACTRIM DS 800-160 MG TAB 476140 TRIMETHOPRIM-SULFAMETHOXAZOLE Inactive PREDNISONE 20 MG TAB 2 tabs daily for 3 days, 1 tab daily for 3 days, 1/2 tab daily for 2 days end 02/05/17 PREDNISONE 20 MG TAB 587011 PREDNISONE Inactive Immunizations Vaccine Administration Date Value Standard Description Seasonal influenza vaccine, injectable, containing preservative, for > 3 years old (Afluria, FluLaval, Fluzone, Fluvirin, Fluarix, Agriflu(>=18 yo)) Fluzone (>3 yrs.) [[id number]] Influenza, seasonal, injectable influenza immunization (Flu Vax) has been administered Influenza - Unspecified Formulation [CVX88] influenza virus vaccine, unspecified formulation Seasonal influenza vaccine, injectable, containing preservative, for > 3 years old (Afluria, FluLaval, Fluzone, Fluvirin, Fluarix, Agriflu(>=18 yo)) Fluzone (>3 yrs.) [[id number]] Influenza, seasonal, injectable pneumococcal immunization administered Pneumovax 23 [CVX33] pneumococcal polysaccharide vaccine, 23 valent dT (Diphtheria and Tetanus) booster given given Td(adult) unspecified formulation Boostrix (Tetanus toxoid, reduced diphtheria toxoid and acellular pertussis vaccine, adsorbed), booster Boostrix [SZN951] tetanus toxoid, reduced diphtheria toxoid, and acellular [...] PANEL - Chemistry cholesterol, serum 166 mg/dL 644-231 3857/12/06 triglyceride, serum, fasting 86 mg/dL 30-200 HDL [...] negative Encounters Code Encounter Date Provider Facility CPT-22620 Level 3 Est. Patient 17:32:14 CDT Gab Padron MD [facility] CPT-74039 Level 3 Est. Patient 10:28:15 CDT Tisha Lambert [facility] CPT-32015 Level 3 Est. Patient 14:50:29 CDT Gab Padron MD [facility] CPT-34553 Level 3 Est. Patient 14:46:09 CDT Tisha Lambert [facility] CPT-47400 Level 4 New Patient 16:13:15 CDT Todd Callaway MD [facility] CPT-18915 Level 4 Est. Patient 13:18:33 CDT Gab Padron MD [facility] CPT-70522 Level 3 Est. Patient 15:20:50 CDT Jared Og MD [facility] CPT-89723 Level 3 Est. Patient 17:43:55 DEVULCANIZER LOADER Gab Padron MD [facility] CPT-42716 Level 3 Est. Patient 17:07:49 DEVULCANIZER LOADER Jared Og MD [facility] CPT-92432 Level 4 Est. Patient 19:55:18 DEVULCANIZER LOADER Jared Og MD [facility] CPT-52060 Level 3 Est. Patient 20:13:34 DEVULCANIZER LOADER Jared Og MD [facility] CPT-09283 Level 4 Est. Patient 16:31:27 CDT Gab Padron MD [facility] CPT-36990 Level 2 Est. Patient 12:23:38 CDT Jared Og MD [facility] CPT-00024 Level 3 Est. Patient 11:01:51 CDT Gab Padron MD [facility] CPT-25121 Level 3 Est. Patient 15:27:02 CDT Jared Og MD [facility] CPT-56357 Level 4 Est. Patient 09:25:27 CDT Gab Padron MD [facility]-04485 Level 3 Est. Patient 10:29:41 CDT Rodrigo Sarah [facility] CPT-40727 Level 4 Est. Patient 17:51:05 CDT Gab Padron MD [facility] CPT-00475 Level 3 Est. Patient 14:18:08 CDT Gab Padron MD [facility]-37202 Level 4 Est. Patient 10:18:54 CDT Gab Padron MD [facility]-43794 Level 3 Est. Patient 11:30:07 CDT Rodrigo Sarah [facility] CPT-74243 Level 4 Est. Patient 21:02:30 DEVULCANIZER LOADER Gab Padron MD [facility]-01208 Level 3 Est. Patient 11:02:19 DEVULCANIZER LOADER Gab Padron MD [facility] CPT-28873 Level 4 Est. Patient 22:24:31 DEVULCANIZER LOADER Gab Padron MD [facility] CPT-31994 Level 3 Est. Patient 18:33:46 DEVULCANIZER LOADER Gab Padron MD [facility] CPT-54161 Level 3 Est. Patient 16:19:11 CDT Yolande Lindsay MD [facility] CPT-63498 Level 3 Est. Patient 18:59:14 CDT Yolande Lindsay MD [facility] CPT-19373 Level 4 Est. Patient 21:29:26 CDT Yolande Lindsay MD [facility]-86523 Level 3 Est. Patient 07:37:45 CDT Yolande Lindsay MD [facility]-53414 Level 3 Est. Patient 17:03:46 CDT Yolande Lindsay MD [facility]-32862 Level 4 Est. Patient 20:02:13 DEVULCANIZER LOADER Yolande Lindsay MD [facility] CPT-54984 Level 3 Est. Patient 16:02:07 DEVULCANIZER LOADER Alexis Ordaz MD [facility]-54648 Level 3 Est. Patient 12:41:24 DEVULCANIZER LOADER Yolande Lindsay MD [facility]-29440 Level 3 Est. Patient 15:41:20 DEVULCANIZER LOADER Yolande Lindsay MD [facility]-16386 Level 3 Est. Patient 13:20:02 DEVULCANIZER LOADER Yolande Lindsay MD [facility]-87395 Level 3 Est. Patient 15:00:38 CDT Jared Og MD [facility]-90101 Level 3 Est. Patient 10:22:32 CDT Yolande Lindsay MD [facility] CPT-40209 Level 3 Est. Patient 17:12:58 CDT Yolande Lindsay MD [facility]-06701 Level 4 Est. Patient 13:30:58 CDT Yolande Lindsay MD [facility] CPT-06704 Level 4 New Patient 09:02:42 CDT Jared Og MD [facility]-11111 Level 3 Est. Patient 08:19:07 CDT Yolande Lindsay MD [facility] CPT-21207 Level 3 Est. Patient 12:00:13 DEVULCANIZER LOADER Gab Padron MD [facility]-02806 Level 3 Est. Patient 16:15:23 DEVULCANIZER LOADER Yolande Lindsay MD [facility]-94024 Level 2 Est. Patient 19:47:15 CDT Yolande Lindsay MD [facility] CPT-63841 Level 3 Est. Patient 21:38:31 CDT Yolande Lindsay MD [facility] CPT-67147 Level 3 Est. Patient 10:25:12 CDT Adiel Harry [facility] CPT-97770 Level 4 Est. Patient 10:51:58 CDT Yolande Lindsay MD [facility]-41748 Level 3 Est. Patient 14:04:55 DEVULCANIZER LOADER Rodrigo Sarah [facility] CPT-85391 Level 3 Est. Patient 10:46:35 DEVULCANIZER LOADER Rodrigo Sarah [facility] CPT-30908 Level 3 Est. Patient 14:24:37 DEVULCANIZER LOADER Yolande Lindsay MD [facility]-75915 Level 3 Est. Patient 17:41:58 DEVULCANIZER LOADER Yolande Lindsay MD [facility] CPT-19616 Level 2 Est. Patient 22:01:41 DEVULCANIZER LOADER Rodrigo Sarah [facility] CPT-21277 Level 2 Est. Patient 22:01:11 DEVULCANIZER LOADER Rodrigo Sarah [facility] CPT-30568 Level 3 Est. Patient 10:12:29 DEVULCANIZER LOADER Rodrigo Sarah [facility] CPT-19656 Level 3 Est. Patient 11:05:44 CDT Alexis Ordaz MD [facility] CPT-96951 Level 3 Est. Patient 14:57:20 CDT Yolande Lindsay MD [facility]-55227 Level 3 Est. Patient 14:40:57 CDT Yolande Lindsay MD [facility]-90377 Level 3 Est. Patient 20:55:40 CDT Yolande Lindsay MD [facility] CPT-65802 Level 3 Est. Patient 12:42:38 DEVULCANIZER LOADER Yolande Lindsay MD PhD [facility] CPT-27566 Level 3 Est. Patient 11:54:49 DEVULCANIZER LOADER Des Hines MD [facility] CPT-16692 Level 3 Est. Patient 17:06:38 CDT Dewayne PERAZA [facility] Procedures Code Procedure Name Date Entry Date Standard Description CPT-57737 First Vx - Ix admin via ID IM or jet injects without counseling by physician 13:08:42 DEVULCANIZER LOADER CPT-88067 Fluzone Quadrivalent Intramuscular Suspension 0.5 ML 13: 08:42 DEVULCANIZER LOADER CPT-J2930 Solu Medrol 125 mg (Methyl Prednisolone Sodium Succinate) 13:19:02 CDT CPT-87368 Abx/Therapy Injection 13:19:02 CDT CPT-J2930 Solu Medrol 125 mg (Methyl Prednisolone Sodium Succinate) 13:05:03 CDT CPT-36938 Hip, complete, 2-3 views - XRAY USE ONLY 17:19:04 DEVULCANIZER LOADER CPT-02469 Venipuncture Draw Fee 08:37:59 DEVULCANIZER LOADER CPT-88926 Liver Profile - LAB USE ONLY 08:37:59 DEVULCANIZER LOADER CPT-71116 Lipid - LAB USE ONLY 08:37:58 DEVULCANIZER LOADER CPT-32943 First Vx - Ix admin via ID IM or jet injects without counseling by physician 11:52:31 CDT CPT-82997 Fluzone Preservative Free Intramuscular Suspension 11:52 :31 CDT CPT-34119 Foot, left, comp min 3V - XRAY USE ONLY 09:24:54 CDT CPT-44462 Abd single AP View - XRAY USE ONLY 11:16:17 CDT CPT-04403 T spine AP/ Lat - XRAY USE ONLY 09:34:21 CDT CPT-08807 Chest 2V Frontal and Lat - XRAY USE ONLY 10:48:51 CDT CPT-04200 LS spine comp w obliq 13:28:00 DEVULCANIZER LOADER CPT-J1040 Depo Medrol 80 mg (Methyl Prednisolone Acetate) 10:51: 28 [employer]ADER CPT-J1100 Decadron 8mg (Dexamethasone) 10:51:28 [employer]UL[employer]ER LOADER CPT-30777 Abx/Therapy Injection 10:51:28 [employer]UL[employer]ER LOADER CPT-J1100 Decadron 8mg (Dexamethasone) 21:02:30 [employer]ER LOADER CPT-J1040 Depo Medrol 80 mg (Methyl Prednisolone Acetate) 21:02: 30 [employer]ER LOADER [id number] Event Monitor - MC Transmission 09:12:32 CDT 08/06 [id number] Event Monitor - MC review and interp 09:12:32 CDT [id number] Event Monitor - MC recording 09:12:32 CDT CPT-63516 EKG Trac and Interp 16:50:22 CDT CPT-J1030 Depo Medrol 40 mg (Methyl Prednisolone Acetate) 17:05: 54 CDT CPT-J1100 Decadron 4mg (Dexamethasone) 17:05:54 CDT CPT-99297 Abx/Therapy Injection 17:05:54 CDT CPT-J1100 Decadron 4mg (Dexamethasone) 16:55:28 CDT CPT-J1030 Depo Medrol 40 mg (Methyl Prednisolone Acetate) 16:55: 28 CDT CPT-30811 Ankle Complete - Min 3V 15:58:50 CDT CPT-13270 Knee 3V 15:58:50 CDT CPT-36092 Hip comp min 2V 15:58:50 CDT CPT-J2270 Morphine Sulfate 10 mg 14:25:44 [employer]ER LOADER CPT-J2550 Phenergan 12.5 mg (Promethazine) 14:25:44 [employer]ULCANIZER LOADER CPT-82478 Abx/Therapy Injection 14:25:44 [employer]ULCANIZER LOADER CPT-J2550 Phenergan 12.5 mg (Promethazine) 14:08:03 [employer]ULCANIZER LOADER CPT-J2270 Morphine Sulfate 10 mg 14:08:03 [employer]UL[employer]IZER LOADER CPT-24021 Bladder Scan 15:00:38 CDT CPT-TCMM Transitional Care Mgmt-Moderate 09:52:22 CDT CPT-J1030 Depo Medrol 40 mg (Methyl Prednisolone Acetate) 10:55: 18 CDT CPT-J1100 Decadron 4mg (Dexamethasone) 10:55:18 CDT CPT-08611 Abx/Therapy Injection 10:55:18 CDT CPT-J1030 Depo Medrol 40 mg (Methyl Prednisolone Acetate) 10:22: 32 CDT CPT-J1100 Decadron 4mg (Dexamethasone) 10:22:32 CDT CPT-60928 Postop F/U Visit 14:37:13 CDT CPT-01730 Ankle Complete - Min 3V 17:11:58 CDT CPT-18139 Foot comp min 3V 17:11:58 CDT CPT-16112 Bladder Scan 09:56:58 CDT CPT-64734 Postop F/U Visit 09:56:58 CDT CPT-49369 Cystoscopy 09:02:42 CDT CPT-90130 Bladder Scan 09:02:42 CDT CPT-03746 Abd single AP View 16:00:35 CDT CPT-73357 Administration single or combination vaccine inc oral 10 :15:43 CDT CPT-72146 Influenza split virus > age 3 10:15:43 CDT CPT-96763 Nail Avulsion 09:24:57 CDT CPT-OV Office Visit 11:15:41 CDT CPT-50698 Abx/Therapy Injection 10:51:30 CDT CPT-J3301 Kenalog 40 mg (Triamcinolone Acetonide) 10:25:12 CDT CPT-J1100 Decadron 4mg (Dexamethasone) 10:25:12 CDT CPT-10395 Anoscopy diagnostic 10:36:12 CDT CPT-OV Office Visit 15:34:31 CDT CPT-43664 Abx/Therapy Injection 08:21:15 [employer]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 Care Visit 14:19:18 [employer]UL[employer]IZER LOADER CPT-57758 Postop F/U Visit 14:47:51 [employer]ER LOADER CPT-49207 Postop F/U Visit 15:15:14 [employer]ER LOADER CPT-44553 Postop F/U Visit 14:41:43 CDT CPT-48301 Postop F/U Visit 15:47:46 CDT CPT-OV Office Visit 15:27:23 CDT CPT-OV Office Visit 17:20:34 CDT CPT-01279 Abx/Therapy Injection 15:05:57 CDT CPT-J1100 Decadron 8mg (Dexamethasone) 14:44:57 CDT CPT-J1040 Depo Medrol 80 mg (Methyl Prednisolone Acetate) 14:44: 57 CDT CPT-JTINJ Joint Injection 10:17:37 CDT CPT-69838 Administration 2+ single or combination vaccines inc oral 13:01:46 [employer]ER LOADER CPT-04946 Administration single or combination vaccine inc oral 13 :01:46 [employer]UL[employer]ER LOADER CPT-84113 Pneumovax 13:01:46 [employer]UL[employer]IZER LOADER CPT-45444 Influenza split virus > age 3 13:01:46 [employer]UL[employer]IZER LOADER CPT-16673 Administration single or combination vaccine inc oral 08 :56:49 CDT CPT-12230 Tdap 08:56:49 CDT
--- OUTSIDE RECORDS SUMMARY | 2017-03-21 20:09 | XMS REPORT | Clinical Summary ---
Author Author Admin, E Organization [facility] Address Unknown Phone Unavailable Allergies, Adverse Reactions, Alerts Allergy Name Reaction Description Start Date Severity Status Provider VALENTIN Critical Active Rodrigo Fracharlottel WEAVING SUPERVISOR CHLORHEXIDINE GLUCONATE tongue and gums swollen Critical Active Hoadante Otto RMA NORFLEX Rash Critical Active Silvestrellina Frazell WEAVING SUPERVISOR TRAZODONE HCL sees things Critical Active Dewayne [...] MD Lumbago Cough 786.2 Active Jillina Tyrel WEAVING SUPERVISOR Cough 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 Jillina Frazellilian WEAVING SUPERVISOR 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 Anemia 285.9 Active Gab Padron MD Anemia, unspecified Conjunctivitis 372.30 Active Jillnacho Sarah APRN Conjunctivitis, unspecified Sinusitis 473.9 Active Silvestrellina Frazell WEAVING SUPERVISOR Unspecified sinusitis (chronic) Nonspecific syndrome suggestive of viral illness 079.99 Active Jillina Fracharlottel WEAVING SUPERVISOR Unspecified viral infection Laryngitis 464.00 Active Jillina Frazell WEAVING SUPERVISOR Acute laryngitis without mention of obstruction Abdominal [...] Flank pain, left 789.09 Active Jillina Frazell WEAVING SUPERVISOR Abdominal pain, other specified site; multiple sites Abdominal pain, generalized 789.07 Active Silvestrellina Farshadzell WEAVING SUPERVISOR Abdominal pain, generalized Back pain, thoracic region, left 724.1 Active Jillina Frazell WEAVING SUPERVISOR Pain in thoracic spine Abdominal pain, left lower quadrant 789.04 Active Gab Padron MD Abdominal pain, left lower quadrant Slowing of urinary stream 788.62 Active Gab Padron MD Slowing of urinary stream Interstitial cystitis 595.1 Active Gab Padron MD Chronic interstitial cystitis Flank Pain Active Jared Og MD Abdominal pain, unspecified site ANKLE PAIN, RIGHT ICD-719.47 Inactive Yolande Lindsay [...] PAIN ICD-729.1 Inactive Yolande Lindsay MD PhD BACK PAIN ICD-724.5 Inactive Yolande Lindsay MD PhD LONG-TERM (CURRENT) [...] MD PhD 07/16 FISSURE, ANAL ICD-565.0 Inactive Yolande Lindsay MD PhD INGROWN TOENAIL [...] Hematuria ICD-599.70 Inactive Yolande Lindsay MD PhD URI ICD-465.9 Inactive Yolande Lindsay MD PhD 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 Inactive Yolande Lindsay MD PhD Ankle pain, right ICD-719.47 Inactive Yolande Lindsay MD PhD Tick bite ICD-989.5 Inactive Yolande Lindsay MD PhD Flank pain [...] ICD-719.45 Inactive Yolande Lindsay MD PhD Sinusitis, acute ICD-461.9 Inactive Yolande Lindsay MD PhD Muscle spasm, back ICD-724.8 Inactive Yolande Lindsay MD PhD Medication List Medication Instructions Start Date Stop Date Generic Name NDC Status Provider Patient Instruction ZOFRAN ODT 4 MG TBDP 1 po q6hr PRN Nausea ONDANSETRON 49421523687 Active Jillina Frahossein ZAPATAN Active IBUPROFEN 600 MG TAB 1 tablet by mouth every 6 hours for 7 days, then 1 tablet every 6 hours as needed. Take with food IBUPROFEN 97995530080 Active Jillina Frazell WEAVING SUPERVISOR Active BACTRIM DS 800-160 MG TAB 1 tab by mouth twice daily TRIMETHOPRIM-SULFAMETHOXAZOLE 03269238913 No Longer Active Gab Padron MD Active ADVAIR DISKUS 250-50 MCG/DOSE AEPB 1 puff BID FLUTICASONE- SALMETEROL 19695454972 Active Jillina Frazell WEAVING SUPERVISOR Active LEVOTHYROXINE SODIUM 75 MCG TABS Take 1 tab daily LEVOTHYROXINE SODIUM 89621506270 No Longer Active Mariana FLEMING Active SYNTHROID 88 MCG ORAL TABS Take one by mouth daily LEVOTHYROXINE SODIUM 65915323408 Active Mariana FLEMING Active CHERATUSSIN AC 100-10 MG/5ML SYRP 1 tsp by mouth every 4 hours as needed for cough GUAIFENESIN-CODEINE 95182866956 No Longer Active Gab Padron MD Active POLYTRIM 18779-8.1 UNIT/ML-% SOLN 1 gtt to affected eye q3h x 7 days POLYMYXIN B-TRIMETHOPRIM 11673921149 No Longer Active Gab Padron MD Active FLUTICASONE PROPIONATE 50 MCG/ACT SUSP 1 to 2 sprays each nostril daily 04/21 FLUTICASONE PROPIONATE 12470427547 No Longer Active Gab Padron MD Active TRILEPTAL 600 MG TABS Take one 1 tablet in Am and 1 tablet at night OXCARBAZEPINE 74389965698 Active Gab Padron MD Active CEFDINIR 300 MG CAPS 1 po BID x 10 days CEFDINIR 51808826778 No Longer Active Rodrigo Sarah APRN Active CEFTIN 500 MG TAB 1 twice a day CEFUROXIME AXETIL 14771676094 No Longer Active Gab Padron MD Active AZITHROMYCIN 250 MG TABS 2 po qd x 1 day, then 1 po qd x 4 days AZITHROMYCIN 72643513440 No Longer Active Rodrigo Sarah APRN Active CLARITIN 10 MG TAB 1 tablet by mouth daily as needed for allergies LORATADINE 58130932163 Active Silvestrellnacho Sarah APRN Active OXYCODONE HCL 5 MG ORAL CAPS 1 TAB PO Q HS OXYCODONE HCL 60519528164 No Longer Active Rodrigo Sarah APRN Active NIASPAN 500 MG ORAL CR-TABS 1 pill nightly x 1 week, then 2 pills nightly x 1 week, then 3 pills nightly x 1 week, then 4 pills nightly NIACIN (ANTIHYPERLIPIDEMIC) 57793930223 No Longer Active Rodrigo Sarah APRN Active NIACIN 500 MG TABS 1 pill by mouth nightly x 1 week, then 2 pills x 1 week, then 3 pills x 1 week, then 4 pills nightly - take after evening meal, with applesauce or an apple NIACIN 20220252413 No Longer Active Yolande Lindsay MD PhD Active FISH OIL 1000 MG CAPS 3 pills daily OMEGA-3 FATTY ACIDS 12908591332 Active Yolande Lindsay MD PhD Active TRIAMCINOLONE ACETONIDE 0.1 % CREA apply bid sparingly to rash TRIAMCINOLONE ACETONIDE 99803877654 Active Yolande Lindsay MD PhD Active FUROSEMIDE 20 MG TAB 1 tablet by mouth daily FUROSEMIDE 78073163664 Active Tisha Lambert WEAVING SUPERVISOR Active LISINOPRIL 20 MG ORAL TABS 1 tab by mouth daily LISINOPRIL 73227574716 Active Gab Padron MD Active FUROSEMIDE 20 MG TABS 1 pill by mouth daily, for edema FUROSEMIDE 09167804495 No Longer Active Yolande Lindsay MD PhD Active ATORVASTATIN CALCIUM 10 MG TABS 1 pill by mouth daily, for cholesterol 09/06 ATORVASTATIN CALCIUM 31918728490 Active Gab Padron MD Active CALCIUM 600+D PLUS MINERALS 600-400 MG-UNIT ORAL CHEW 1 tab by mouth daily CALCIUM CARBONATE-VIT D-MIN 97764446785 No Longer Active Yolande Lindsay MD PhD Active CYCLOBENZAPRINE HCL 10 MG TABS 1 tablet by mouth three times daily as needed for muscle spasm/pain CYCLOBENZAPRINE HCL 21559818864 Active Yolande Lindsay MD PhD Active ONDANSETRON 4 MG TBDP 1 q4h PRN nausea ONDANSETRON 89459754064 Active Yolande Lindsay MD PhD Active ADULT ASPIRIN EC LOW STRENGTH 81 MG TBEC Take 1 tablet by mouth daily 2014 ASPIRIN 21802299205 No Longer Active Yolande Lindsay MD PhD Active ZOFRAN ODT 4 MG TBDP 1 pill dissolved by mouth every 4 hours if needed for nausea ONDANSETRON 39807336843 No Longer Active Yolande Lindsay MD PhD Active CEFTIN 500 MG TAB 1 twice a day CEFUROXIME AXETIL 69471958482 No Longer Active Yolande Lindsay MD PhD Active ALBUTEROL SULFATE 0.083 % NEBU SOLN one vial per nebulizer every 4-6 hours as needed ALBUTEROL SULFATE 95769811784 No Longer Active Alexis Ordaz MD Active DOXYCYCLINE HYCLATE 100 MG CAP 1 cap by mouth twice daily DOXYCYCLINE HYCLATE 83098948320 No Longer Active Yolande Lindsay MD PhD Active CYCLOBENZAPRINE HCL 10 MG TABS 1/2 - 1 tab by mouth three times daily if needed for spasms/pain CYCLOBENZAPRINE HCL 67747616578 No Longer Active Yolande Lindsay MD PhD Active AZITHROMYCIN 250 MG TABS 2 pills on day 1, then 1 pill daily x 4 days AZITHROMYCIN 11636054692 No Longer Active Yolande Lindsay MD PhD Active XOPENEX 1.25 MG/3ML NEBU 1 neb every 4 hours if needed for cough/congestion LEVALBUTEROL HCL 33554729976 No Longer Active Yolande Lindsay MD PhD Active DOXYCYCLINE HYCLATE 100 MG TAB 1 tab twice a day for 14 days 2013 DOXYCYCLINE HYCLATE 52819073561 No Longer Active Yolande Lindsay MD PhD Active PREVACID 30 MG CPDR Take 1 tablet by mouth daily-PRN LANSOPRAZOLE 92184956425 No Longer Active Yolande Lindsay MD PhD Active PA VITAMIN D-3 2000 UNIT CAPS 1 CAP PO DAILY CHOLECALCIFEROL 90895782163 No Longer Active Yolande Lindsay MD PhD Active CEFDINIR 300 MG CAPS by mouth twice a day CEFDINIR 00356227542 No Longer Active Gab Padron MD Active TOPAMAX 50 MG TABS 1 PO twice daily TOPIRAMATE 98934001733 Active Yolande Lindsay MD PhD Active AZITHROMYCIN 250 MG TABS 2 po qd x 1 day, then 1 po qd x 4 days AZITHROMYCIN 83020997556 No Longer Active Yolande Lindsay MD PhD Active DICLOFENAC SODIUM 75 MG TBEC 1 tablet by q 12 hours PRN headaches DICLOFENAC SODIUM 67372772020 No Longer Active Yolande Lindsay MD PhD Active FLONASE 50 MCG/ACT SUSP 1 spray each nostril am and hs FLUTICASONE PROPIONATE 56626838716 No Longer Active Todd Callaway MD Active ANUSOL-HC 25 MG SUPPOSITORY 1 rectally twice a day as needed for hemorrhoids HYDROCORTISONE JAYDEN (RECTAL) 13074194246 No Longer Active Yolande Lindsay MD PhD Active ANUSOL-HC 25 MG SUPPOSITORY 1 suppository rectally each evening as needed for anal fissure HYDROCORTISONE JAYDEN (RECTAL) 29206093469 No Longer Active LONNIE Iglesias Active VALIUM 5 MG TAB 1 po 30 minutes prior to your MRI DIAZEPAM 05869711542 No Longer Active LONNIE Iglesias Active METHOCARBAMOL 750 MG TABS 1 PO QID PRN METHOCARBAMOL 34132343214 No Longer Active Daphne Wetzel APRN Active NITROSTAT 0.4 MG SUBL as directed NITROGLYCERIN 43817385840 No Longer Active Rodrigo Sarah APRN Active ROBAXIN-750 750 MG TABS 2 four times a day for 3 days as needed for muscle spasm, then 1 four times a day as needed METHOCARBAMOL 62716981405 No Longer Active Rodrigo Sarah APRN Active HYDROCODONE-ACETAMINOPHEN 5-325 MG TABS 1 q 4-6 hrs prn HYDROCODONE-ACETAMINOPHEN 16772509862 No Longer Active Rodrigo Sarah APRN Active VERAPAMIL HCL CR 180 MG CR-TABS TAKE 1 TAB DAILY VERAPAMIL HCL 86036841366 No Longer Active Yolande Lindsay MD PhD Active BACTRIM DS 800-160 MG TAB 1 tab by mouth twice daily TRIMETHOPRIM-SULFAMETHOXAZOLE 65877836667 No Longer Active Yolande Lindsay MD PhD Active NEXIUM 40 MG PACK 1 by mouth daily ESOMEPRAZOLE MAGNESIUM 26501623037 No Longer Active Des Hines MD Active EPIPEN 2-CHARLETTE 0.3 MG/0.3ML OMARI as need for allergic reaction EPINEPHRINE 14117041418 Active Yolande Lindsay MD PhD Active NEXIUM 40 MG CPDR 1 PO Q D DAY ESOMEPRAZOLE MAGNESIUM 89699305630 No Longer Active Sadia Perry RN Active NEXIUM 40 MG PACK 1 by mouth daily NEXIUM 40 MG PACK ESOMEPRAZOLE MAGNESIUM Inactive VERAPAMIL HCL CR 180 MG CR-TABS TAKE 1 TAB DAILY VERAPAMIL HCL CR 180 MG CR-TABS VERAPAMIL HCL Inactive HYDROCODONE-ACETAMINOPHEN 5-325 MG TABS 1 q 4-6 hrs prn HYDROCODONE-ACETAMINOPHEN 5-325 MG TABS 176957 HYDROCODONE-ACETAMINOPHEN Inactive ROBAXIN-750 750 MG TABS 2 four times a day for 3 days as needed for muscle spasm, then 1 four times a day as needed ROBAXIN-750 750 MG TABS 440933 METHOCARBAMOL Inactive NITROSTAT 0.4 MG SUBL as directed NITROSTAT 0.4 MG SUBL NITROGLYCERIN Inactive METHOCARBAMOL 750 MG TABS 1 PO QID PRN METHOCARBAMOL 750 MG TABS 421030 METHOCARBAMOL Inactive VALIUM 5 MG TAB 1 po 30 minutes prior to your MRI VALIUM 5 MG TAB 848428 DIAZEPAM Inactive ANUSOL-HC 25 MG SUPPOSITORY 1 suppository rectally each evening as needed for anal fissure ANUSOL-HC 25 MG SUPPOSITORY 9244782 HYDROCORTISONE JAYDEN (RECTAL) Inactive ANUSOL-HC 25 MG SUPPOSITORY 1 rectally twice a day as needed for hemorrhoids ANUSOL-HC 25 MG SUPPOSITORY 5198890 HYDROCORTISONE JAYDEN (RECTAL) Inactive FLONASE 50 MCG/ACT SUSP 1 spray each nostril am and hs FLONASE 50 MCG/ACT SUSP FLUTICASONE PROPIONATE Inactive DICLOFENAC SODIUM 75 MG TBEC 1 tablet by q 12 hours PRN headaches DICLOFENAC SODIUM 75 MG TBEC 466222 DICLOFENAC SODIUM Inactive PA VITAMIN D-3 2000 UNIT CAPS 1 CAP PO DAILY PA VITAMIN D-3 2000 UNIT CAPS CHOLECALCIFEROL Inactive PREVACID 30 MG CPDR Take 1 tablet by mouth daily-PRN PREVACID 30 MG CPDR 553893 LANSOPRAZOLE Inactive DOXYCYCLINE HYCLATE 100 MG TAB 1 tab twice a day for 14 days 2013 DOXYCYCLINE HYCLATE 100 MG TAB 2306647 DOXYCYCLINE HYCLATE Inactive XOPENEX 1.25 MG/3ML NEBU 1 neb every 4 hours if needed for cough/congestion XOPENEX 1.25 MG/3ML NEBU 238173 LEVALBUTEROL HCL Inactive CYCLOBENZAPRINE HCL 10 MG TABS 1/2 - 1 tab by mouth three times daily if needed for spasms/pain CYCLOBENZAPRINE HCL 10 MG TABS 389150 CYCLOBENZAPRINE HCL Inactive ALBUTEROL SULFATE 0.083 % NEBU SOLN one vial per nebulizer every 4-6 hours as needed ALBUTEROL SULFATE 0.083 % NEBU SOLN 936254 ALBUTEROL SULFATE Inactive CEFTIN 500 MG TAB 1 twice a day CEFTIN 500 MG TAB 631430 CEFUROXIME AXETIL Inactive ZOFRAN ODT 4 MG TBDP 1 pill dissolved by mouth every 4 hours if needed for nausea ZOFRAN ODT 4 MG TBDP 431436 ONDANSETRON Inactive ADULT ASPIRIN EC LOW STRENGTH 81 MG TBEC Take 1 tablet by mouth daily 2014 ADULT ASPIRIN EC LOW STRENGTH 81 MG TBEC 203812 ASPIRIN Inactive CALCIUM 600+D PLUS MINERALS 600-400 [...] or an apple NIACIN 500 MG TABS 755730 NIACIN Inactive NIASPAN 500 MG ORAL CR-TABS 1 pill nightly x 1 week, then 2 pills nightly x 1 week, then 3 pills nightly x 1 week, then 4 pills nightly NIASPAN 500 MG ORAL CR-TABS NIACIN (ANTIHYPERLIPIDEMIC) Inactive OXYCODONE HCL 5 MG ORAL CAPS 1 TAB PO Q HS OXYCODONE HCL 5 MG ORAL CAPS 8654798 OXYCODONE HCL Inactive FLUTICASONE PROPIONATE 50 MCG/ACT SUSP 1 to 2 sprays each nostril daily 04/21 FLUTICASONE PROPIONATE 50 MCG/ACT SUSP 769442 FLUTICASONE PROPIONATE Inactive POLYTRIM 87895-4.1 UNIT/ML-% SOLN 1 gtt to affected eye q3h x 7 days POLYTRIM 81800-3.1 UNIT/ML-% SOLN 830044 POLYMYXIN B- TRIMETHOPRIM Inactive CHERATUSSIN AC 100-10 MG/5ML SYRP 1 tsp by mouth every 4 hours as needed for cough CHERATUSSIN AC 100-10 MG/5ML SYRP 888474 GUAIFENESIN-CODEINE Inactive LEVOTHYROXINE SODIUM 75 MCG TABS Take 1 tab daily LEVOTHYROXINE SODIUM 75 MCG TABS 327113 LEVOTHYROXINE SODIUM Inactive BACTRIM DS 800-160 MG TAB 1 tab by mouth twice daily BACTRIM DS 800-160 MG TAB 255628 TRIMETHOPRIM-SULFAMETHOXAZOLE Inactive AZITHROMYCIN 250 MG TABS 2 po qd x 1 day, then 1 po qd x 4 days AZITHROMYCIN 250 MG TABS 8251655 AZITHROMYCIN Inactive CEFDINIR 300 MG CAPS by mouth twice a day CEFDINIR 300 MG CAPS 20020708 CEFDINIR Inactive AZITHROMYCIN 250 MG TABS 2 pills on day 1, then 1 pill daily x 4 days AZITHROMYCIN 250 MG TABS 5196450 AZITHROMYCIN Inactive DOXYCYCLINE HYCLATE 100 MG CAP 1 cap by mouth twice daily DOXYCYCLINE HYCLATE 100 MG CAP 0490088 DOXYCYCLINE HYCLATE Inactive FUROSEMIDE 20 MG TABS 1 pill by mouth daily, for edema FUROSEMIDE 20 MG TABS 773247 FUROSEMIDE Inactive AZITHROMYCIN 250 MG TABS 2 po qd x 1 day, then 1 po qd x 4 days AZITHROMYCIN 250 MG TABS 3878866 AZITHROMYCIN Inactive CEFTIN 500 MG TAB 1 twice a day CEFTIN 500 MG TAB 881313 CEFUROXIME AXETIL Inactive CEFDINIR 300 MG CAPS 1 po BID x 10 days CEFDINIR 300 MG CAPS 20020708 CEFDINIR Inactive BACTRIM DS 800-160 MG TAB 1 tab by mouth twice daily BACTRIM DS 800-160 MG TAB 497503 TRIMETHOPRIM-SULFAMETHOXAZOLE Inactive Immunizations Vaccine Administration Date Value Standard Description Seasonal influenza vaccine, injectable, containing preservative, for > 3 years old (Afluria, FluLaval, Fluzone, Fluvirin, Fluarix, Agriflu(>=18 yo)) Fluzone (>3 yrs.) [AEC010] Influenza, seasonal, injectable influenza immunization (Flu Vax) has been administered Influenza - Unspecified Formulation [CVX88] influenza virus vaccine, unspecified formulation Seasonal influenza vaccine, injectable, containing preservative, for > 3 years old (Afluria, FluLaval, Fluzone, Fluvirin, Fluarix, Agriflu(>=18 yo)) Fluzone (>3 yrs.) [DMS892] Influenza, seasonal, injectable pneumococcal immunization administered Pneumovax 23 [CVX33] pneumococcal polysaccharide vaccine, 23 valent dT (Diphtheria and Tetanus) booster given given Td(adult) unspecified formulation Boostrix (Tetanus toxoid, reduced diphtheria toxoid and acellular pertussis vaccine, adsorbed), booster Boostrix [SCB567] tetanus toxoid, reduced diphtheria toxoid, and acellular [...] Panel - Chemistry sodium, serum 142 mmol/L 127-642 3716/06/30 potassium, serum 4.4 mmol/L 3.5-5.2 chloride, serum 108 mmol/L 98-107 carbon dioxide, venous blood 25.1 mmol/L 21.0-32.0 blood glucose 82 mg/dL 65-110 calcium, serum 9.1 mg/dL 8.5-10.1 urea nitrogen, blood 18 mg/dL 7-18 creatinine, serum 1.31 mg/dL 0.55-1.30 Lab Report: [facility] Advanced Lipid and Inlammation Panel /02714 - Chemistry cholesterol, serum 148 mg/dL 203-668 0256/09/02 HDL cholesterol, serum 55 mg/dL > OR=46 triglyceride, serum, fasting 67 mg/dL LDL cholesterol, serum 80 mg/dL cholesterol/HDL ratio, serum 2.7 calc < OR=5.0 Lab Report: CBC - Hematology mean corpuscular hemoglobin, RBC 26.5 pg 27.0-31.2 mean corpuscular hemoglobin concentration, RBC 31.6 G/DL % 31.8- 35.4 red blood cell distribution width 15.7 % 11.6-14.8 platelet count 224 10^3/MM^3 10*3/mm3 537-032 0197/12/30 mean corpuscular volume, RBC 84 fL 80-97 [...] (L) - Chemistry sodium, serum 145 mmol/L 545-038 9355/09/02 potassium, serum 4.6 mmol/L 3.5-5.2 chloride, serum [...] Rate - Chemistry sodium, serum 139 mmol/L 963-533 5797/03/24 creatinine, serum 1.35 mg/dL 0.55-1.30 alanine aminotransferase [...] 0.36-3.74 thyroxine, serum, free 0.80 ng/dL 0.76-1.46 sodium, serum 143 mmol/L 912-137 0996/05/02 carbon dioxide, venous blood 25.6 mmol/L 21.0-32.0 [...] RBC, urine, dipstick Negative Negative Lab Report: Comp. Metabolic Panel, UADIP W/MICRO, [...] Negative mg/dL Negative sodium, serum 142 mmol/L 664-054 4892/07/18 carbon dioxide, venous blood 27.8 mmol/L 21.0-32.0 [...] mg/dL Encounters Code Encounter Date Provider Facility CPT-21535 Level 3 Est. Patient 15:27:02 CDT Jared Og MD [facility] CPT-00704 Level 4 Est. Patient 09:25:27 CDT Gab Padron MD [facility] CPT-03318 Level 3 Est. Patient 10:29:41 CDT Rodrigo Sarah APRN [facility] CPT-95064 Level 4 Est. Patient 17:51:05 CDT Gab Padron MD [facility] CPT-98502 Level 3 Est. Patient 14:18:08 CDT Gab Padron MD [facility] CPT-28201 Level 4 Est. Patient 10:18:54 CDT Gab Padron MD [facility] CPT-74317 Level 3 Est. Patient 11:30:07 CDT Rodrigo Sarah APRN [facility] CPT-83338 Level 4 Est. Patient 21:02:30 HOME HEALTH ADMINISTRATOR Gab Padron MD [facility]-80689 Level 3 Est. Patient 11:02:19 HOME HEALTH ADMINISTRATOR Gab Padron MD [facility] CPT-22629 Level 4 Est. Patient 22:24:31 HOME HEALTH ADMINISTRATOR Gab Padron MD [facility]-09707 Level 3 Est. Patient 18:33:46 HOME HEALTH ADMINISTRATOR Gab Padron MD [facility]-19464 Level 3 Est. Patient 16:19:11 CDT Yolande Lindsay MD [facility]-91897 Level 3 Est. Patient 18:59:14 CDT Yolande Lindsay MD [facility]-09203 Level 4 Est. Patient 21:29:26 CDT Yolande Lindsay MD [facility]-02888 Level 3 Est. Patient 07:37:45 CDT Yolande Lindsay MD [facility]-89441 Level 3 Est. Patient 17:03:46 CDT Yolande Lindsay MD [facility]-25008 Level 4 Est. Patient 20:02:13 HOME HEALTH ADMINISTRATOR Yolande Lindsay MD PhD [facility] CPT-93806 Level 3 Est. Patient 16:02:07 HOME HEALTH ADMINISTRATOR Alexis Ordaz MD [facility] CPT-90580 Level 3 Est. Patient 12:41:24 HOME HEALTH ADMINISTRATOR Yolande Lindsay MD PhD [facility]-01864 Level 3 Est. Patient 15:41:20 HOME HEALTH ADMINISTRATOR Yolande Lindsay MD [facility] CPT-36786 Level 3 Est. Patient 13:20:02 HOME HEALTH ADMINISTRATOR Yolande Lindsay MD [facility]-52820 Level 3 Est. Patient 15:00:38 CDT Jared Og MD [facility]-75479 Level 3 Est. Patient 10:22:32 CDT Yolande Lindsay MD [facility]-46122 Level 3 Est. Patient 17:12:58 CDT Yolande Lindsay MD [facility]-71869 Level 4 Est. Patient 13:30:58 CDT Yolande Lindsay MD [facility]-42467 Level 4 New Patient 09:02:42 [address] [facility]-79050 Level 3 Est. Patient 08:19:07 CDT Yolande Lindsay MD [facility]-34506 Level 3 Est. Patient 12:00:13 HOME HEALTH ADMINISTRATOR Gab Padron MD [facility]-46141 Level 3 Est. Patient 16:15:23 HOME HEALTH ADMINISTRATOR Yolande Lindsay MD [facility] CPT-46541 Level 2 Est. Patient 19:47:15 CDT Yolande Lindsay MD [facility]-52881 Level 3 Est. Patient 21:38:31 CDT Yolande Lindsay MD [facility]-94229 Level 3 Est. Patient 10:25:12 CDT Adiel PERAZA [facility]-06041 Level 4 Est. Patient 10:51:58 CDT Yolande Lindsay MD [facility]-07484 Level 3 Est. Patient 14:04:55 HOME HEALTH ADMINISTRATOR Rodrigo Sarah [facility]-14187 Level 3 Est. Patient 10:46:35 HOME HEALTH ADMINISTRATOR Rodrigo Sarah [facility]-57222 Level 3 Est. Patient 14:24:37 HOME HEALTH ADMINISTRATOR Yolande Lindsay MD [facility] CPT-39219 Level 3 Est. Patient 17:41:58 HOME HEALTH ADMINISTRATOR Yolande Lindsay MD [facility] CPT-13057 Level 2 Est. Patient 22:01:41 HOME HEALTH ADMINISTRATOR Rodrigo Sarah [facility] CPT-31349 Level 2 Est. Patient 22:01:11 HOME HEALTH ADMINISTRATOR Rodrigo Sarah [facility] CPT-53971 Level 3 Est. Patient 10:12:29 HOME HEALTH ADMINISTRATOR Rodrigo Sarah [facility] CPT-54022 Level 3 Est. Patient 11:05:44 CDT Alexis Ordaz MD [facility] CPT-68350 Level 3 Est. Patient 14:57:20 CDT Yolande Lindsay MD [facility] CPT-41082 Level 3 Est. Patient 14:40:57 CDT Yolande Lindsay MD [facility] CPT-98167 Level 3 Est. Patient 20:55:40 CDT Yolande Lindsay MD [facility] CPT-99181 Level 3 Est. Patient 12:42:38 HOME HEALTH ADMINISTRATOR Yolande Lindsay MD [facility] CPT-38625 Level 3 Est. Patient 11:54:49 HOME HEALTH ADMINISTRATOR Des Hines MD [facility] CPT-33183 Level 3 Est. Patient 17:06:38 CDT Dewayne PERAZA [facility] Procedures Code Procedure Name Date Entry Date Standard Description CPT-18707 T spine AP/ Lat - XRAY USE ONLY 09:34:21 CDT CPT-81349 Chest 2V Frontal and Lat - XRAY USE ONLY 10:48:51 CDT CPT-57662 LS spine comp w obliq 13:28:00 HOME HEALTH ADMINISTRATOR CPT-J1040 Depo Medrol 80 mg (Methyl Prednisolone Acetate) 10:51: 28 HOME HEALTH ADMINISTRATOR CPT-J1100 Decadron 8mg (Dexamethasone) 10:51:28 HOME HEALTH ADMINISTRATOR CPT-19475 Abx/Therapy Injection 10:51:28 HOME HEALTH ADMINISTRATOR CPT-J1100 Decadron 8mg (Dexamethasone) 21:02:30 HOME HEALTH ADMINISTRATOR CPT-J1040 Depo Medrol 80 mg (Methyl Prednisolone Acetate) 21:02: 30 HOME HEALTH ADMINISTRATOR [id number] Event Monitor - MC Transmission 09:12:32 CDT 08/06 [id number] Event Monitor - MC review and interp 09:12:32 CDT [id number] Event Monitor - MC recording 09:12:32 CDT CPT-62916 EKG Trac and Interp 16:50:22 CDT CPT-J1030 Depo Medrol 40 mg (Methyl Prednisolone Acetate) 17:05: 54 CDT CPT-J1100 Decadron 4mg (Dexamethasone) 17:05:54 CDT CPT-18809 Abx/Therapy Injection 17:05:54 CDT CPT-J1100 Decadron 4mg (Dexamethasone) 16:55:28 CDT CPT-J1030 Depo Medrol 40 mg (Methyl Prednisolone Acetate) 16:55: 28 CDT CPT-41825 Ankle Complete - Min 3V 15:58:50 CDT CPT-02988 Knee 3V 15:58:50 CDT CPT-94177 Hip comp min 2V 15:58:50 CDT CPT-J2270 Morphine Sulfate 10 mg 14:25:44 HOME HEALTH ADMINISTRATOR CPT-J2550 Phenergan 12.5 mg (Promethazine) 14:25:44 HOME HEALTH ADMINISTRATOR CPT-84917 Abx/Therapy Injection 14:25:44 HOME HEALTH ADMINISTRATOR CPT-J2550 Phenergan 12.5 mg (Promethazine) 14:08:03 HOME HEALTH ADMINISTRATOR CPT-J2270 Morphine Sulfate 10 mg 14:08:03 HOME HEALTH ADMINISTRATOR CPT-61150 Bladder Scan 15:00:38 CDT CPT-TCMM Transitional Care Mgmt-Moderate 09:52:22 CDT CPT-J1030 Depo Medrol 40 mg (Methyl Prednisolone Acetate) 10:55: 18 CDT CPT-J1100 Decadron 4mg (Dexamethasone) 10:55:18 CDT CPT-84148 Abx/Therapy Injection 10:55:18 CDT CPT-J1030 Depo Medrol 40 mg (Methyl Prednisolone Acetate) 10:22: 32 CDT CPT-J1100 Decadron 4mg (Dexamethasone) 10:22:32 CDT CPT-80999 Postop F/U Visit 14:37:13 CDT CPT-19477 Ankle Complete - Min 3V 17:11:58 CDT CPT-59662 Foot comp min 3V 17:11:58 CDT CPT-54647 Bladder Scan 09:56:58 CDT CPT-53794 Postop F/U Visit 09:56:58 CDT CPT-16367 Cystoscopy 09:02:42 CDT CPT-77863 Bladder Scan 09:02:42 CDT CPT-01817 Abd single AP View 16:00:35 CDT CPT-71993 Administration single or combination vaccine inc oral 10 :15:43 CDT CPT-63876 Influenza split virus > age 3 10:15:43 CDT CPT-80895 Nail Avulsion 09:24:57 CDT CPT-OV Office Visit 11:15:41 CDT CPT-01130 Abx/Therapy Injection 10:51:30 CDT CPT-J3301 Kenalog 40 mg (Triamcinolone Acetonide) 10:25:12 CDT CPT-J1100 Decadron 4mg (Dexamethasone) 10:25:12 CDT CPT-97574 Anoscopy diagnostic 10:36:12 CDT CPT-OV Office Visit 15:34:31 CDT CPT-70833 Abx/Therapy Injection 08:21:15 HOME HEALTH ADMINISTRATOR CPT-J1885 Toradol 60 mg (Ketorolac) 10:46:35 HOME HEALTH ADMINISTRATOR CPT-OV Office Visit 19:51:16 HOME HEALTH ADMINISTRATOR CPT-74456 Spec Collection and Handling Fee 14:34:18 HOME HEALTH ADMINISTRATOR CPT-PV Prev. Care Visit 14:19:18 HOME HEALTH ADMINISTRATOR CPT-86836 Postop F/U Visit 14:47:51 HOME HEALTH ADMINISTRATOR CPT-03438 Postop F/U Visit 15:15:14 HOME HEALTH ADMINISTRATOR CPT-25337 Postop F/U Visit 14:41:43 CDT CPT-86274 Postop F/U Visit 15:47:46 CDT CPT-OV Office Visit 15:27:23 CDT CPT-OV Office Visit 17:20:34 CDT CPT-74451 Abx/Therapy Injection 15:05:57 CDT CPT-J1100 Decadron 8mg (Dexamethasone) 14:44:57 CDT CPT-J1040 Depo Medrol 80 mg (Methyl Prednisolone Acetate) 14:44: 57 CDT CPT-JTINJ Joint Injection 10:17:37 CDT CPT-04061 Administration 2+ single or combination vaccines inc oral 13:01:46 HOME HEALTH ADMINISTRATOR CPT-21815 Administration single or combination vaccine inc oral 13 :01:46 HOME HEALTH ADMINISTRATOR CPT-19982 Pneumovax 13:01:46 HOME HEALTH ADMINISTRATOR CPT-32874 Influenza split virus > age 3 13:01:46 HOME HEALTH ADMINISTRATOR CPT-55902 Administration single or combination vaccine inc oral 08 :56:49 CDT CPT-52108 Tdap 08:56:49 CDT
--- OUTSIDE RECORDS SUMMARY | 2017-03-21 20:11 | XMS REPORT | Clinical Summary ---
Author Author Admin, E Organization [facility] Address Unknown Phone Unavailable Allergies, Adverse Reactions, Alerts Allergy Name Reaction Description Start Date Severity Status Provider VALENTIN Critical Active Rodrigo Fracharlottel MEASURING CLERK CHLORHEXIDINE GLUCONATE tongue and gums swollen Critical Active Hoadante Otto RMA NORFLEX Rash Critical Active Silvestrellina Frazell MEASURING CLERK TRAZODONE HCL sees things Critical Active [...] and myositis, unspecified FISSURE, ANAL 565.0 Resolved Yoladne Lindsay MD PhD Anal fissure CHEST PAIN, [...] MD Lumbago Cough 786.2 Active Jillina Tyrel MEASURING CLERK Cough 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 Jillina Frazellilian MEASURING CLERK 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 Anemia 285.9 Active Gab Padron MD Anemia, unspecified Conjunctivitis 372.30 Active Jillnacho Sarah APRN Conjunctivitis, unspecified Sinusitis 473.9 Active Silvestrellina Frazell MEASURING CLERK Unspecified sinusitis (chronic) Nonspecific syndrome suggestive of viral illness 079.99 Active Jillina Frazell MEASURING CLERK Unspecified viral infection Laryngitis 464.00 Active Jillina Frazell MEASURING CLERK Acute laryngitis without mention of obstruction [...] Flank pain, left 789.09 Active Jillina Frazell MEASURING CLERK Abdominal pain, other specified site; multiple sites Abdominal pain, generalized 789.07 Active Jillina Farshadzell MEASURING CLERK Abdominal pain, generalized Back pain, thoracic region, left 724.1 Active Jillina Frazell MEASURING CLERK Pain in thoracic spine Abdominal pain, [...] 787.02 Active Jared Og MD Nausea alone FOOT PAIN, RIGHT ICD-729.5 Inactive Yolande Lindsay [...] Alexis Ordaz MD GERD ICD-530.81 Inactive Todd aCllaway MD BACK PAIN ICD-724.5 Inactive Yolande Lindsay [...] MD PhD Hip pain, left ICD-719.45 Inactive Yoalnde Lindsay MD PhD Sinusitis, maxillary, acute ICD-461.0 [...] 1/2 tab daily for 2 days PREDNISONE 46630405330 No Longer Active Gab Padron MD Active ZOFRAN ODT 4 MG TBDP 1 po q6hr PRN Nausea ONDANSETRON 53944203061 Active Gab Padron MD Active IBUPROFEN 600 MG TAB 1 tablet by mouth every 6 hours for 7 days, then 1 tablet every 6 hours as needed. Take with food IBUPROFEN 44689678878 Active Rodrigo Sarah APRN Active BACTRIM DS 800-160 MG TAB 1 tab by mouth twice daily TRIMETHOPRIM-SULFAMETHOXAZOLE 57479141058 No Longer Active Gab Padron MD Active ADVAIR DISKUS 250-50 MCG/DOSE AEPB 1 puff BID FLUTICASONE- SALMETEROL 25938995584 Active Rodrigo Sarah APRN Active LEVOTHYROXINE SODIUM 75 MCG TABS Take 1 tab daily LEVOTHYROXINE SODIUM 67312208495 No Longer Active Mariana Cuadra A Active SYNTHROID 88 MCG ORAL TABS Take one by mouth daily LEVOTHYROXINE SODIUM 74809582954 Active Gab Padron MD Active CHERATUSSIN AC 100-10 MG/5ML SYRP 1 tsp by mouth every 4 hours as needed for cough GUAIFENESIN-CODEINE 25066438957 No Longer Active Gab Padron MD Active POLYTRIM 93895-7.1 UNIT/ML-% SOLN 1 gtt to affected eye q3h x 7 days POLYMYXIN B-TRIMETHOPRIM 32787722600 No Longer Active Gab Padron MD Active FLUTICASONE PROPIONATE 50 MCG/ACT SUSP 1 to 2 sprays each nostril daily 04/21 FLUTICASONE PROPIONATE 79371371685 No Longer Active Gab Padron MD Active TRILEPTAL 600 MG TABS Take one 1 tablet in Am and 1 tablet at night OXCARBAZEPINE 24710861613 Active Gab Padron MD Active CEFDINIR 300 MG CAPS 1 po BID x 10 days CEFDINIR 92394188988 No Longer Active Rodrigo Sarah APRN Active CEFTIN 500 MG TAB 1 twice a day CEFUROXIME AXETIL 14326307640 No Longer Active Gab Padron MD Active AZITHROMYCIN 250 MG TABS 2 po qd x 1 day, then 1 po qd x 4 days AZITHROMYCIN 97850979954 No Longer Active Rodrigo Sarah APRN Active CLARITIN 10 MG TAB 1 tablet by mouth daily as needed for allergies LORATADINE 35135169655 Active Rodrigo Sarah APRN Active OXYCODONE HCL 5 MG ORAL CAPS 1 TAB PO Q HS OXYCODONE HCL 33000566963 No Longer Active Rodrigo Sarah APRN Active NIASPAN 500 MG ORAL CR-TABS 1 pill nightly x 1 week, then 2 pills nightly x 1 week, then 3 pills nightly x 1 week, then 4 pills nightly NIACIN (ANTIHYPERLIPIDEMIC) 09397910486 No Longer Active Rodrigo Sarah APRN Active NIACIN 500 MG TABS 1 pill by mouth nightly x 1 week, then 2 pills x 1 week, then 3 pills x 1 week, then 4 pills nightly - take after evening meal, with applesauce or an apple NIACIN 99609675763 No Longer Active Yolande Lindsay MD PhD Active FISH OIL 1000 MG CAPS 3 pills daily OMEGA-3 FATTY ACIDS 02152061601 Active Yolande Lindsay MD PhD Active TRIAMCINOLONE ACETONIDE 0.1 % CREA apply bid sparingly to rash TRIAMCINOLONE ACETONIDE 85613030404 Active Yolande Lindsay MD PhD Active FUROSEMIDE 20 MG TAB 1 tablet by mouth daily FUROSEMIDE 58790015598 Active Tisha Lambert APRN Active LISINOPRIL 20 MG ORAL TABS 1 tab by mouth daily LISINOPRIL 48299845461 Active Tisha Lambert APRN Active FUROSEMIDE 20 MG TABS 1 pill by mouth daily, for edema FUROSEMIDE 69908473082 No Longer Active Yolande Lindsay MD PhD Active ATORVASTATIN CALCIUM 10 MG TABS 1 pill by mouth daily, for cholesterol 09/06 ATORVASTATIN CALCIUM 13959773890 Active Gab Padron MD Active CALCIUM 600+D PLUS MINERALS 600-400 MG-UNIT ORAL CHEW 1 tab by mouth daily CALCIUM CARBONATE-VIT D-MIN 67658847243 No Longer Active Yolande Lindsay MD PhD Active CYCLOBENZAPRINE HCL 10 MG TABS 1 tablet by mouth three times daily as needed for muscle spasm/pain CYCLOBENZAPRINE HCL 00941262071 Active Yolande Lindsay MD PhD Active ONDANSETRON 4 MG TBDP 1 q4h PRN nausea ONDANSETRON 31972138756 Active Yolande Lindsay MD PhD Active ADULT ASPIRIN EC LOW STRENGTH 81 MG TBEC Take 1 tablet by mouth daily 2014 ASPIRIN 91525525628 No Longer Active Yolande Lindsay MD PhD Active ZOFRAN ODT 4 MG TBDP 1 pill dissolved by mouth every 4 hours if needed for nausea ONDANSETRON 57580649210 No Longer Active Yolande Lindsay MD PhD Active CEFTIN 500 MG TAB 1 twice a day CEFUROXIME AXETIL 73636105681 No Longer Active Yolande Lindsay MD PhD Active ALBUTEROL SULFATE 0.083 % NEBU SOLN one vial per nebulizer every 4-6 hours as needed ALBUTEROL SULFATE 80763748427 No Longer Active Alexis Ordaz MD Active DOXYCYCLINE HYCLATE 100 MG CAP 1 cap by mouth twice daily DOXYCYCLINE HYCLATE 32581523263 No Longer Active Yolande Lindsay MD PhD Active CYCLOBENZAPRINE HCL 10 MG TABS 1/2 - 1 tab by mouth three times daily if needed for spasms/pain CYCLOBENZAPRINE HCL 68712574875 No Longer Active Yolande Lindsay MD PhD Active AZITHROMYCIN 250 MG TABS 2 pills on day 1, then 1 pill daily x 4 days AZITHROMYCIN 38993394084 No Longer Active Yolande Lindsay MD PhD Active XOPENEX 1.25 MG/3ML NEBU 1 neb every 4 hours if needed for cough/congestion LEVALBUTEROL HCL 86127979444 No Longer Active Yolande Lindsay MD PhD Active DOXYCYCLINE HYCLATE 100 MG TAB 1 tab twice a day for 14 days 2013 DOXYCYCLINE HYCLATE 83942940629 No Longer Active Yolande Lindsay MD PhD Active PREVACID 30 MG CPDR Take 1 tablet by mouth daily-PRN LANSOPRAZOLE 22132461900 No Longer Active Yolande Lindsay MD PhD Active PA VITAMIN D-3 2000 UNIT CAPS 1 CAP PO DAILY CHOLECALCIFEROL 35874417826 No Longer Active Yolande Lindsay MD PhD Active CEFDINIR 300 MG CAPS by mouth twice a day CEFDINIR 60809906416 No Longer Active Gab Padron MD Active TOPAMAX 50 MG TABS 1 PO twice daily TOPIRAMATE 74131855605 Active Yolande Lindsay MD PhD Active AZITHROMYCIN 250 MG TABS 2 po qd x 1 day, then 1 po qd x 4 days AZITHROMYCIN 41821812925 No Longer Active Yolande Lindsay MD PhD Active DICLOFENAC SODIUM 75 MG TBEC 1 tablet by q 12 hours PRN headaches DICLOFENAC SODIUM 18298041700 No Longer Active Yolande Lindsay MD PhD Active FLONASE 50 MCG/ACT SUSP 1 spray each nostril am and hs FLUTICASONE PROPIONATE 44126456912 No Longer Active Todd Callaway MD Active ANUSOL-HC 25 MG SUPPOSITORY 1 rectally twice a day as needed for hemorrhoids HYDROCORTISONE JAYDEN (RECTAL) 61361501602 No Longer Active Yolande Lindsay MD PhD Active ANUSOL-HC 25 MG SUPPOSITORY 1 suppository rectally each evening as needed for anal fissure HYDROCORTISONE JAYDEN (RECTAL) 14335591269 No Longer Active LONNIE Iglesias Active VALIUM 5 MG TAB 1 po 30 minutes prior to your MRI DIAZEPAM 18982990640 No Longer Active LONNIE Iglesias Active METHOCARBAMOL 750 MG TABS 1 PO QID PRN METHOCARBAMOL 48151664911 No Longer Active Daphne Rashard MEASURING CLERK Active NITROSTAT 0.4 MG SUBL as directed NITROGLYCERIN 69105738660 No Longer Active Rodrigo Sarah APRN Active ROBAXIN-750 750 MG TABS 2 four times a day for 3 days as needed for muscle spasm, then 1 four times a day as needed METHOCARBAMOL 62292541980 No Longer Active Rodrigo Sarah APRN Active HYDROCODONE-ACETAMINOPHEN 5-325 MG TABS 1 q 4-6 hrs prn HYDROCODONE-ACETAMINOPHEN 45484751397 No Longer Active Rodrigo Sarah APRN Active VERAPAMIL HCL CR 180 MG CR-TABS TAKE 1 TAB DAILY VERAPAMIL HCL 11507662346 No Longer Active Yolande Lindsay MD PhD Active BACTRIM DS 800-160 MG TAB 1 tab by mouth twice daily TRIMETHOPRIM-SULFAMETHOXAZOLE 34322919353 No Longer Active Yolande Lindsay MD PhD Active NEXIUM 40 MG PACK 1 by mouth daily ESOMEPRAZOLE MAGNESIUM 94487966497 No Longer Active Des Hines MD Active EPIPEN 2-CHARLETTE 0.3 MG/0.3ML OMARI as need for allergic reaction EPINEPHRINE 81365237059 Active Yolande Lindsay MD PhD Active NEXIUM 40 MG CPDR 1 PO Q D DAY ESOMEPRAZOLE MAGNESIUM 16325517347 No Longer Active Sadia Perry RN Active NEXIUM 40 MG PACK 1 by mouth daily NEXIUM 40 MG PACK ESOMEPRAZOLE MAGNESIUM Inactive VERAPAMIL HCL CR 180 MG CR-TABS TAKE 1 TAB DAILY VERAPAMIL HCL CR 180 MG CR-TABS VERAPAMIL HCL Inactive HYDROCODONE-ACETAMINOPHEN 5-325 MG TABS 1 q 4-6 hrs prn HYDROCODONE-ACETAMINOPHEN 5-325 MG TABS 939784 HYDROCODONE-ACETAMINOPHEN Inactive ROBAXIN-750 750 MG TABS 2 four times a day for 3 days as needed for muscle spasm, then 1 four times a day as needed ROBAXIN-750 750 MG TABS 318811 METHOCARBAMOL Inactive NITROSTAT 0.4 MG SUBL as directed NITROSTAT 0.4 MG SUBL 611154 NITROGLYCERIN Inactive METHOCARBAMOL 750 MG TABS 1 PO QID PRN METHOCARBAMOL 750 MG TABS 470255 METHOCARBAMOL Inactive VALIUM 5 MG TAB 1 po 30 minutes prior to your MRI VALIUM 5 MG TAB 580778 DIAZEPAM Inactive ANUSOL-HC 25 MG SUPPOSITORY 1 suppository rectally each evening as needed for anal fissure ANUSOL-HC 25 MG SUPPOSITORY 5002193 HYDROCORTISONE JAYDEN (RECTAL) Inactive ANUSOL-HC 25 MG SUPPOSITORY 1 rectally twice a day as needed for hemorrhoids ANUSOL-HC 25 MG SUPPOSITORY 2342656 HYDROCORTISONE JAYDEN (RECTAL) Inactive FLONASE 50 MCG/ACT SUSP 1 spray each nostril am and hs FLONASE 50 MCG/ACT SUSP FLUTICASONE PROPIONATE Inactive DICLOFENAC SODIUM 75 MG TBEC 1 tablet by q 12 hours PRN headaches DICLOFENAC SODIUM 75 MG TBEC 059575 DICLOFENAC SODIUM Inactive PA VITAMIN D-3 2000 UNIT CAPS 1 CAP PO DAILY PA VITAMIN D-3 2000 UNIT CAPS CHOLECALCIFEROL Inactive PREVACID 30 MG CPDR Take 1 tablet by mouth daily-PRN PREVACID 30 MG CPDR 549303 LANSOPRAZOLE Inactive DOXYCYCLINE HYCLATE 100 MG TAB 1 tab twice a day for 14 days 2013 DOXYCYCLINE HYCLATE 100 MG TAB 9419840 DOXYCYCLINE HYCLATE Inactive XOPENEX 1.25 MG/3ML NEBU 1 neb every 4 hours if needed for cough/congestion XOPENEX 1.25 MG/3ML NEBU 261097 LEVALBUTEROL HCL Inactive CYCLOBENZAPRINE HCL 10 MG TABS 1/2 - 1 tab by mouth three times daily if needed for spasms/pain CYCLOBENZAPRINE HCL 10 MG TABS 069480 CYCLOBENZAPRINE HCL Inactive ALBUTEROL SULFATE 0.083 % NEBU SOLN one vial per nebulizer every 4-6 hours as needed ALBUTEROL SULFATE 0.083 % NEBU SOLN 108094 ALBUTEROL SULFATE Inactive CEFTIN 500 MG TAB 1 twice a day CEFTIN 500 MG TAB 297775 CEFUROXIME AXETIL Inactive ZOFRAN ODT 4 MG TBDP 1 pill dissolved by mouth every 4 hours if needed for nausea ZOFRAN ODT 4 MG TBDP 115290 ONDANSETRON Inactive ADULT ASPIRIN EC LOW STRENGTH 81 MG TBEC Take 1 tablet by mouth daily 2014 ADULT ASPIRIN EC LOW STRENGTH 81 MG TBEC 579943 ASPIRIN Inactive CALCIUM 600+D PLUS MINERALS 600-400 [...] or an apple NIACIN 500 MG TABS 792920 NIACIN Inactive NIASPAN 500 MG ORAL CR-TABS 1 pill nightly x 1 week, then 2 pills nightly x 1 week, then 3 pills nightly x 1 week, then 4 pills nightly NIASPAN 500 MG ORAL CR-TABS NIACIN (ANTIHYPERLIPIDEMIC) Inactive OXYCODONE HCL 5 MG ORAL CAPS 1 TAB PO Q HS OXYCODONE HCL 5 MG ORAL CAPS 7422339 OXYCODONE HCL Inactive FLUTICASONE PROPIONATE 50 MCG/ACT SUSP 1 to 2 sprays each nostril daily 04/21 FLUTICASONE PROPIONATE 50 MCG/ACT SUSP 2898344 FLUTICASONE PROPIONATE Inactive POLYTRIM 61527-3.1 UNIT/ML-% SOLN 1 gtt to affected eye q3h x 7 days POLYTRIM 56591-2.1 UNIT/ML-% SOLN 063850 POLYMYXIN B- TRIMETHOPRIM Inactive CHERATUSSIN AC 100-10 MG/5ML SYRP 1 tsp by mouth every 4 hours as needed for cough CHERATUSSIN AC 100-10 MG/5ML SYRP 000690 GUAIFENESIN-CODEINE Inactive LEVOTHYROXINE SODIUM 75 MCG TABS Take 1 tab daily LEVOTHYROXINE SODIUM 75 MCG TABS 780005 LEVOTHYROXINE SODIUM Inactive BACTRIM DS 800-160 MG TAB 1 tab by mouth twice daily BACTRIM DS 800-160 MG TAB 19820606 TRIMETHOPRIM-SULFAMETHOXAZOLE Inactive AZITHROMYCIN 250 MG TABS 2 po qd x 1 day, then 1 po qd x 4 days AZITHROMYCIN 250 MG TABS 8538619 AZITHROMYCIN Inactive CEFDINIR 300 MG CAPS by mouth twice a day CEFDINIR 300 MG CAPS 20020708 CEFDINIR Inactive AZITHROMYCIN 250 MG TABS 2 pills on day 1, then 1 pill daily x 4 days AZITHROMYCIN 250 MG TABS 1317629 AZITHROMYCIN Inactive DOXYCYCLINE HYCLATE 100 MG CAP 1 cap by mouth twice daily DOXYCYCLINE HYCLATE 100 MG CAP 5307049 DOXYCYCLINE HYCLATE Inactive FUROSEMIDE 20 MG TABS 1 pill by mouth daily, for edema FUROSEMIDE 20 MG TABS 514576 FUROSEMIDE Inactive AZITHROMYCIN 250 MG TABS 2 po qd x 1 day, then 1 po qd x 4 days AZITHROMYCIN 250 MG TABS 7817603 AZITHROMYCIN Inactive CEFTIN 500 MG TAB 1 twice a day CEFTIN 500 MG TAB 643967 CEFUROXIME AXETIL Inactive CEFDINIR 300 MG CAPS [...] for 2 days PREDNISONE 20 MG TAB 820156 PREDNISONE Inactive Immunizations Vaccine Administration Date Value Standard Description Seasonal influenza vaccine, injectable, containing preservative, for > 3 years old (Afluria, FluLaval, Fluzone, Fluvirin, Fluarix, Agriflu(>=18 yo)) Fluzone (>3 yrs.) [[id number]] Influenza, seasonal, injectable influenza immunization (Flu Vax) has been administered Influenza - Unspecified Formulation [CVX88] influenza virus vaccine, unspecified formulation pneumococcal immunization administered Pneumovax 23 [CVX33] pneumococcal polysaccharide vaccine, 23 valent Seasonal influenza vaccine, injectable, containing preservative, for > 3 years old (Afluria, FluLaval, Fluzone, Fluvirin, Fluarix, Agriflu(>=18 yo)) Fluzone (>3 yrs.) [GPJ540] Influenza, seasonal, injectable dT (Diphtheria and Tetanus) booster given given Td(adult) unspecified formulation Boostrix (Tetanus toxoid, reduced diphtheria toxoid and acellular pertussis vaccine, adsorbed), booster Boostrix [[id number]] tetanus toxoid, reduced diphtheria toxoid, and acellular [...] Panel - Chemistry sodium, serum 142 mmol/L 676-439 2690/06/30 urea nitrogen, blood 18 mg/dL 7-18 creatinine, serum 1.31 mg/dL 0.55-1.30 potassium, serum 4.4 mmol/L 3.5-5.2 chloride, serum 108 mmol/L 98-107 carbon dioxide, venous blood 25.1 mmol/L 21.0-32.0 blood glucose 82 mg/dL 65-110 calcium, serum 9.1 mg/dL 8.5-10.1 Lab Report: CBC W/DIFF, RapidStrep Rflx/Cx, TIERA INFLUENZA A/B - Hematology lymphocytes as percent of blood leukocytes 22.7 % 20.5-51.1 erythrocyte (RBC) count 3.94 10^6/MM^3 10*6/mm3 4.04-5.48 hemoglobin, blood 10.9 g/dL 12.0-16.0 hematocrit, blood 33.7 % 36.0-46.0 mean corpuscular volume, RBC 85 fL 80-97 mean corpuscular hemoglobin, RBC 27.7 pg 27.0-31.2 mean corpuscular hemoglobin concentration, RBC 32.4 G/DL % 31.8- 35.4 red blood cell distribution width 20.2 % 11.6-14.8 platelet count 179 10^3/MM^3 10*3/mm3 336-962 6482/03/24 monocytes as percent of blood leukocytes 11.3 % 1.7-9.3 neutrophils as percent of blood leukocytes 64.0 % 42.2-75.2 leukocyte count, blood 5.3 10^3/MM^3 10*3/mm3 4.6-10.2 Lab Report: CBC W/DIFF, RapidStrep Rflx/Cx, TIERA INFLUENZA A/B - Lab Microbial identification kit, rapid strep method Negative-Throat Culture to Follow Negative Lab Report: CBC W/DIFF, RapidStrep Rflx/Cx, TIERA INFLUENZA A/B - Toxicology rapid flu test Negative Negative;Positive Lab Report: Comp. Metabolic Panel, Erythrocyte Sed Rate - Chemistry sodium, serum 139 mmol/L 754-479 7620/03/24 creatinine, serum 1.35 mg/dL 0.55-1.30 alanine aminotransferase [...] ... - Chemistry sodium, serum 143 mmol/L 386-168 1284/05/02 creatinine, serum 1.21 mg/dL 0.55-1.30 alanine aminotransferase (SGPT), serum 32 U/L -78 aspartate aminotransferase (SGOT), serum 18 U/L 15-37 calcium, serum 8.5 mg/dL 8.5-10.1 bilirubin, serum, total 0.30 mg/dL 0.00-1.00 protein, total urine random Negative mg/dL Negative RBC, urine, dipstick Negative Negative TSH 0.63 m[iU]/mL 0.36-3.74 thyroxine, serum, free 0.80 ng/dL 0.76-1.46 carbon dioxide, venous blood 25.6 mmol/L 21.0-32.0 potassium, serum 4.8 mmol/L 3.5-5.2 chloride, serum 108 mmol/L 98-107 blood glucose 70 mg/dL 65-110 urea nitrogen, blood 20 mg/dL 7-18 Lab Report: Comp. Metabolic Panel, [...] PANEL - Chemistry cholesterol, serum 166 mg/dL 453-880 6564/12/06 triglyceride, serum, fasting 86 mg/dL 30-200 HDL [...] Hormone (L), Free Thyroxine (L) - Chemistry thyroxine, serum, free 0.75 ng/dL 0.76-1.46 TSH 1.08 m[iU]/mL 0.36-3.74 Lab Report: UADIP W/MICRO, AUTO, CBC W/DIFF, Comp. Metabolic Panel - Chemistry RBC, urine, dipstick Negative Negative sodium, serum 142 mmol/L 161-481 1585/07/18 carbon dioxide, venous blood 27.8 mmol/L 21.0-32.0 [...] protein, total urine random Negative mg/dL Negative Lab Report: UADIP W/MICRO, AUTO, CBC [...] Negative Negative nitrite, urine, semiquantitative Negative Negative urine color Yellow Colorless;Lightyellow;Straw;Yellow ketones, urine, by test strip Negative Negative bilirubin, urine Negative Negative glucose, urine, semiquantitative Negative Negative appearance, urine Clear Clear specific gravity, urine [...] urinalysis, routine Clean Catch culture status No nitrite, urine, semiquantitative negative urobilinogen, urine, semiquantitative (dipstick) 0.2 protein, urine, semiquantitative (dipstick) negative urine color yellow appearance, urine clear leukocyte esterase, urine, by dipstick negative Office Visit: Follow up IC - [...] negative Encounters Code Encounter Date Provider Facility CPT-03502 Level 3 Est. 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 Patient 19:55:18 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 Jared Og MD [facility] CPT-33135 Level 3 Est. 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 Patient 16:31:27 CDT Gab Padron MD [facility] CPT-55185 Level 2 Est. Patient 12:23:38 CDT Jared Og MD [facility] CPT-73392 Level 3 Est. Patient 11:01:51 CDT Gab Padron MD [facility] CPT-51928 Level 3 Est. Patient 15:27:02 CDT Jared Og MD [facility] CPT-79597 Level 4 Est. Patient 09:25:27 CDT Gab Padron MD [facility] CPT-43775 Level 3 Est. Patient 10:29:41 CDT Rodrigo Sarah [facility] CPT-14800 Level 4 Est. Patient 17:51:05 CDT Gab Padron MD [facility]-56296 Level 3 Est. Patient 14:18:08 CDT Gab Padron MD [facility]-48090 Level 4 Est. Patient 10:18:54 CDT Gab Pardon MD [facility]-39641 Level 3 Est. Patient 11:30:07 CDT Rodrigo Sarah [facility] CPT-73613 Level 4 Est. 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 Patient 22:24:31 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 Gab Padron MD [facility] CPT-02363 Level 3 Est. Patient 18:33:46 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 Gab Padron MD [facility] CPT-61198 Level 3 Est. Patient 16:19:11 CDT Yolande Lindsay MD [facility]-52225 Level 3 Est. Patient 18:59:14 CDT Yolnade Lindsay MD [facility] CPT-10234 Level 4 Est. Patient 21:29:26 CDT Yolande Lindsay MD [facility]-38912 Level 3 Est. Patient 07:37:45 CDT Yolande Lindsay MD [facility] CPT-96940 Level 3 Est. Patient 17:03:46 CDT Yolande Lindsay MD [facility]-64207 Level 4 Est. 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 CPT-12032 Level 3 Est. 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 Patient 12:41:24 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 Yolande Lindsay MD [facility]-81107 Level 3 Est. Patient 15:41:20 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 Yolande Lindsay MD [facility]-78568 Level 3 Est. Patient 13:20:02 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 Yolande Lindsay MD [facility]-31306 Level 3 Est. Patient 15:00:38 CDT Jared Og MD [facility] CPT-98059 Level 3 Est. Patient 10:22:32 CDT Yolande Lindsay MD [facility] CPT-43068 Level 3 Est. Patient 17:12:58 CDT Yolande Lindsay MD [facility] CPT-11153 Level 4 Est. Patient 13:30:58 CDT Yolande Lindsay MD [facility] CPT-90897 Level 4 New Patient 09:02:42 CDT Jared Og MD [facility] CPT-04925 Level 3 Est. Patient 08:19:07 CDT Yolande Lindsay MD [facility]-28510 Level 3 Est. 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 Patient 16:15:23 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 Yolande Lindsay MD [facility]-61806 Level 2 Est. Patient 19:47:15 CDT Yolande Lindsay MD [facility]-47465 Level 3 Est. Patient 21:38:31 CDT Yolande Lindsay MD [facility]-11437 Level 3 Est. Patient 10:25:12 CDT Adiel PERAZA [facility]-64294 Level 4 Est. Patient 10:51:58 CDT Yolande Lindsay MD [facility]-25212 Level 3 Est. Patient 14:04:55 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 Rodrigo Sarah [facility]-97816 Level 3 Est. Patient 10:46:35 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 Rodrigo Sarah [facility] CPT-57181 Level 3 Est. Patient 14:24:37 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 Yolande Lindsay MD [facility]-36089 Level 3 Est. Patient 17:41:58 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 Yolande Lindsay MD [facility]-17984 Level 2 Est. Patient 22:01:41 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 Rodrigo Sarah [facility] CPT-17948 Level 2 Est. Patient 22:01:11 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 Rodrigo Sarah [facility] CPT-71450 Level 3 Est. Patient 10:12:29 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 Rodrigo Sarah [facility] CPT-57616 Level 3 Est. Patient 11:05:44 CDT Alexis Ordaz MD [facility]-42885 Level 3 Est. Patient 14:57:20 CDT Yolande Lindsay MD [facility]-48418 Level 3 Est. Patient 14:40:57 CDT Yolande Lindsay MD [facility]97207 Level 3 Est. Patient 20:55:40 CDT Yolande Lindsay MD [facility] CPT-36414 Level 3 Est. Patient 12:42:38 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 Yolande Lindsay MD PhD [facility] CPT-32051 Level 3 Est. Patient 11:54:49 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 Des Hines MD [facility] CPT-33912 Level 3 Est. Patient 17:06:38 CDT Dewayne PERAZA [facility] Procedures Code Procedure Name Date Entry Date Standard Description CPT-80629 Venipuncture Draw Fee 08:37:59 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 CPT-39811 Liver Profile - LAB USE ONLY 08:37:59 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 CPT-92553 Lipid - LAB USE ONLY 08:37:58 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 CPT-21715 First Vx - Ix admin via ID IM or jet injects without counseling by physician 11:52:31 CDT CPT-17037 Fluzone Preservative Free Intramuscular Suspension 11:52 :31 CDT CPT-79024 Foot, left, comp min 3V - XRAY USE ONLY 09:24:54 CDT CPT-73274 Abd single AP View - XRAY USE ONLY 11:16:17 CDT CPT-15908 T spine AP/ Lat - XRAY USE ONLY 09:34:21 CDT CPT-50044 Chest 2V Frontal and Lat - XRAY USE ONLY 10:48:51 CDT CPT-44449 LS spine comp w obliq 13:28:00 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 CPT-J1040 Depo Medrol 80 mg (Methyl Prednisolone Acetate) 10:51: 28 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 CPT-J1100 Decadron 8mg (Dexamethasone) 10:51:28 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 CPT-15398 Abx/Therapy Injection 10:51:28 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 CPT-J1100 Decadron 8mg (Dexamethasone) 21:02:30 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 CPT-J1040 Depo Medrol 80 mg (Methyl Prednisolone Acetate) 21:02: 30 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 [id number] Event Monitor - MC Transmission 09:12:32 CDT 08/06 [id number] Event Monitor - MC review and interp 09:12:32 CDT [id number] Event Monitor - MC recording 09:12:32 CDT CPT-51657 EKG Trac and Interp 16:50:22 CDT CPT-J1030 Depo Medrol 40 mg (Methyl Prednisolone Acetate) 17:05: 54 CDT CPT-J1100 Decadron 4mg (Dexamethasone) 17:05:54 CDT CPT-04022 Abx/Therapy Injection 17:05:54 CDT CPT-J1100 Decadron 4mg (Dexamethasone) 16:55:28 CDT CPT-J1030 Depo Medrol 40 mg (Methyl Prednisolone Acetate) 16:55: 28 CDT CPT-90452 Ankle Complete - Min 3V 15:58:50 CDT CPT-06412 Knee 3V 15:58:50 CDT CPT-75921 Hip comp min 2V 15:58:50 CDT CPT-J2270 Morphine Sulfate 10 mg 14:25:44 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 CPT-J2550 Phenergan 12.5 mg (Promethazine) 14:25:44 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 CPT-53856 Abx/Therapy Injection 14:25:44 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 CPT-J2550 Phenergan 12.5 mg (Promethazine) 14:08:03 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 CPT-J2270 Morphine Sulfate 10 mg 14:08:03 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 CPT-92206 Bladder Scan 15:00:38 CDT CPT-TCMM Transitional Care Mgmt-Moderate 09:52:22 CDT CPT-J1030 Depo Medrol 40 mg (Methyl Prednisolone Acetate) 10:55: 18 CDT CPT-J1100 Decadron 4mg (Dexamethasone) 10:55:18 CDT CPT-02072 Abx/Therapy Injection 10:55:18 CDT CPT-J1030 Depo Medrol 40 mg (Methyl Prednisolone Acetate) 10:22: 32 CDT CPT-J1100 Decadron 4mg (Dexamethasone) 10:22:32 CDT CPT-17097 Postop F/U Visit 14:37:13 CDT CPT-05946 Ankle Complete - Min 3V 17:11:58 CDT CPT-64865 Foot comp min 3V 17:11:58 CDT CPT-50512 Bladder Scan 09:56:58 CDT CPT-65445 Postop F/U Visit 09:56:58 CDT CPT-06306 Cystoscopy 09:02:42 CDT CPT-87756 Bladder Scan 09:02:42 CDT CPT-52203 Abd single AP View 16:00:35 CDT CPT-03635 Administration single or combination vaccine inc oral 10 :15:43 CDT CPT-81896 Influenza split virus > age 3 10:15:43 CDT CPT-27063 Nail Avulsion 09:24:57 CDT CPT-OV Office Visit 11:15:41 CDT CPT-71376 Abx/Therapy Injection 10:51:30 CDT CPT-J3301 Kenalog 40 mg (Triamcinolone Acetonide) 10:25:12 CDT CPT-J1100 Decadron 4mg (Dexamethasone) 10:25:12 CDT CPT-12430 Anoscopy diagnostic 10:36:12 CDT CPT-OV Office Visit 15:34:31 CDT CPT-65977 Abx/Therapy Injection 08:21:15 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 CPT-J1885 Toradol 60 mg (Ketorolac) 10:46:35 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 CPT-OV Office Visit 19:51:16 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 CPT-50993 Spec Collection and Handling Fee 14:34:18 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 CPT-PV Prev. Care Visit 14:19:18 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 CPT-68108 Postop F/U Visit 14:47:51 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 CPT-67779 Postop F/U Visit 15:15:14 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 CPT-01233 Postop F/U Visit 14:41:43 CDT CPT-64627 Postop F/U Visit 15:47:46 CDT CPT-OV Office Visit 15:27:23 CDT CPT-OV Office Visit 17:20:34 CDT CPT-20129 Abx/Therapy Injection 15:05:57 CDT CPT-J1100 Decadron 8mg (Dexamethasone) 14:44:57 CDT CPT-J1040 Depo Medrol 80 mg (Methyl Prednisolone Acetate) 14:44: 57 CDT CPT-JTINJ Joint Injection 10:17:37 CDT CPT-76354 Administration 2+ single or combination vaccines inc oral 13:01:46 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 CPT-48107 Administration single or combination vaccine inc oral 13 :01:46 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 CPT-86910 Pneumovax 13:01:46 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 CPT-54961 Influenza split virus > age 3 13:01:46 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 CPT-82972 Administration single or combination vaccine inc oral 08 :56:49 CDT CPT-90373 Tdap 08:56:49 CDT
--- OUTSIDE RECORDS SUMMARY | 2017-03-21 20:13 | XMS REPORT ---
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 Name Role Phone REGAN HUTSON, EVELYN PP [phone] Summary purpose TRANSITION OF CARE AUTO GENERATION [...] Penicillins Drug Allergy Penicillins Confirmed or Verified trazodone Drug Allergy Trazodone Confirmed or Verified bee venom (honey bee) Drug Allergy bee venom (honey bee) Confirmed or Verified POPPY SEEDS Food Allergy POPPY SEEDS Confirmed or Verified throat swelling Hydrocodone Drug Allergy Hydrocodone Confirmed but Inactive Nausea oxycodone Drug Allergy Oxycodone Confirmed or Verified lemon pepper Food Allergy lemon pepper Confirmed or Verified throat swelling sheeps milk Food Allergy sheeps milk Confirmed or Verified Hives sheeps milk Food Allergy sheeps milk Confirmed or Verified Nausea Norflex Drug Allergy Norflex Confirmed or Verified Norflex Drug Allergy orphenadrine Confirmed or Verified chlorhexidine Drug Allergy chlorhexidine Confirmed or Verified niacin Drug Allergy niacin Confirmed or Verified orphenadrine Drug Allergy orphenadrine Confirmed or Verified Immunizations No immunizations recorded for this patient visit Relevant diagnostic tests and/or laboratory data No authorized results are available for this patient visit History of procedures No procedures recorded for this patient visit. Functional status Functional Status Finding Observation Time Diet regular :19 Abdomen Appearance obese :19 Abdomen soft :19 Bajwa no :19 Urination normal :19 Quality sym/unlabored :19 Cough absent :19 Secretions no :19 Airway natural :19 Chest Tube no :19 Oxygen no :40 Temp >100.4 no : Temp <96.8 no :19 Chills with rigors no : HR > 90bpm yes : Respirations > 20 no : Systolic <90 no : headache stiff neck no :19 Nursing Note Reviewed dc instructions with pt and , both verbalized understanding. Pt dc to home in good condition with no noted nosebleed. Pt ambulated off unit indpenedently without difficulty accompanied by . :40 Vital signs Type Value Date Respiration Rate 20breaths per minute :40 Pulse 74beats per minute :40 Oxygen Saturation 98% :40 BP Systolic 105mmHg :40 BP Diastolic 64mmHg :40 Temperature 97.1F :40 Social history Type Value Smoking Status FORMER SMOKER Treatment Plan No treatment plan text is available for this visit. Hospital discharge instructions Dismissal Condition good Disposition on DC home DC Inst/Educ Give yes PNE Vac 2015 Flu Vac 2014 Tetanus Vac 2012
--- OUTSIDE RECORDS SUMMARY | 2017-03-21 20:13 | XMS REPORT | Clinical Summary ---
Author Author Admin, MARGRET Organization [employer] Address Unknown Phone Unavailable Allergies, Adverse Reactions, Alerts Allergy Name Reaction Description Start Date Severity Status Provider VALENTIN Critical Active Rodrigo Montemayorl LEAD JAVASCRIPT DEVELOPER CHLORHEXIDINE GLUCONATE tongue and gums swollen Critical Active Hoa Kabaford RMA NORFLEX Rash Critical Active Silvestrellina Frazell LEAD JAVASCRIPT DEVELOPER TRAZODONE HCL sees things Critical Active [...] hx of 412 Active Hoa Otto [facility] Old myocardial infarction Pelvic pain 789.09 Resolved [...] Cellulitis and abscess of leg, except foot FOOT PAIN, RIGHT ICD-729.5 Inactive Yolande Lindsay [...] fall ICD-E888.9 Inactive Yolande Lindsay MD PhD Ankle sprain, [...] bite, infected ICD-919.5 Inactive Gab Padron MD Knee sprain, left ICD-844.9 Inactive Yolande Lindsay MD PhD Renal insufficiency, mild ICD-585.2 Inactive Gab Padron [...] Padron MD Breast tenderness ICD-611.71 Inactive Gab aPdron MD Breast mass, right ICD-611.72 Inactive Gab Padron MD Renal mass ICD-593.9 Inactive Gab Padron MD Nausea ICD-787.02 Inactive Gab Padron MD 2016 Hip pain, left ICD-719.45 Inactive Gab Padron MD Poison sami ICD-692.6 Inactive Gab Padron MD Medication List Medication Instructions Start Date Stop Date Generic Name NDC Status Provider Patient Instruction BACTRIM DS 800-160 MG TAB 1 tab by mouth twice daily TRIMETHOPRIM-SULFAMETHOXAZOLE 50100109695 No Longer Active Tisha Lambert APRN Active ADVAIR DISKUS 250-50 MCG/DOSE AEPB 1 puff BID FLUTICASONE-SALMETEROL 23480609997 No Longer Active Todd Callaway MD Active ONDANSETRON 4 MG TBDP 1 q4h PRN nausea ONDANSETRON 78249895701 No Longer Active LONNIE Iglesias Active FISH OIL 1000 MG CAPS 3 pills daily OMEGA-3 FATTY ACIDS 71836074289 No Longer Active LONNIE Iglesias Active CETIRIZINE HCL 10 MG ORAL TABS 1 po qd PRN Allergies CETIRIZINE HCL 90130519105 Active Gab Padron MD Active CLARITIN 10 MG TAB 1 tablet by mouth daily as needed for allergies LORATADINE 82985872610 No Longer Active Gab Padron MD Active PREDNISONE 20 MG TAB take 3 tabs daily for 3 days, 2 tabs daily for 3 days, 1 tab daily for 3 days, 1/2 tab daily for 3 days PREDNISONE 82729347051 No Longer Active Tisha Lambert APRN Active TRAMADOL HCL 50 MG TABS 1 tab po every 6 hrs prn pain TRAMADOL HCL 92603086343 Active Gab Padron MD Active PREDNISONE 20 MG TAB 2 tabs daily for 3 days, 1 tab daily for 3 days, 1/2 tab daily for 2 days PREDNISONE 18435595971 No Longer Active Gab Padron MD Active ZOFRAN ODT 4 MG TBDP 1 po q6hr PRN Nausea ONDANSETRON 61743877625 Active Gab Padron MD Active IBUPROFEN 600 MG TAB 1 tablet by mouth every 6 hours for 7 days, then 1 tablet every 6 hours as needed. Take with food IBUPROFEN 69846531741 Active Rodrigo Sarah APRN Active BACTRIM DS 800-160 MG TAB 1 tab by mouth twice daily TRIMETHOPRIM-SULFAMETHOXAZOLE 15805486200 No Longer Active Gab Padron MD Active LEVOTHYROXINE SODIUM 75 MCG TABS Take 1 tab daily LEVOTHYROXINE SODIUM 03320497707 No Longer Active Mariana uCadra [facility] Active SYNTHROID 88 MCG ORAL TABS Take one by mouth daily LEVOTHYROXINE SODIUM 09945688596 Active Gab Padron MD Active CHERATUSSIN AC 100-10 MG/5ML SYRP 1 tsp by mouth every 4 hours as needed for cough GUAIFENESIN-CODEINE 00171853950 No Longer Active Gab Padron MD Active POLYTRIM 81602-1.1 UNIT/ML-% SOLN 1 gtt to affected eye q3h x 7 days POLYMYXIN B-TRIMETHOPRIM 73694120043 No Longer Active Gab Padron MD Active FLUTICASONE PROPIONATE 50 MCG/ACT SUSP 1 to 2 sprays each nostril daily 04/21 FLUTICASONE PROPIONATE 57967144621 No Longer Active Gab Padron MD Active TRILEPTAL 600 MG TABS Take one 1 tablet in Am and 1 tablet at night OXCARBAZEPINE 18470872759 Active Gab Padron MD Active CEFDINIR 300 MG CAPS 1 po BID x 10 days CEFDINIR 89630303529 No Longer Active Rodrigo Sarah APRN Active CEFTIN 500 MG TAB 1 twice a day CEFUROXIME AXETIL 15445299289 No Longer Active Gab Padron MD Active AZITHROMYCIN 250 MG TABS 2 po qd x 1 day, then 1 po qd x 4 days AZITHROMYCIN 59568327466 No Longer Active Rodrigo Sarah APRN Active OXYCODONE HCL 5 MG ORAL CAPS 1 TAB PO Q HS OXYCODONE HCL 67234892034 No Longer Active Rodrigo Sarah APRN Active NIASPAN 500 MG ORAL CR-TABS 1 pill nightly x 1 week, then 2 pills nightly x 1 week, then 3 pills nightly x 1 week, then 4 pills nightly NIACIN (ANTIHYPERLIPIDEMIC) 49815160556 No Longer Active Rodrigo Sarah APRN Active NIACIN 500 MG TABS 1 pill by mouth nightly x 1 week, then 2 pills x 1 week, then 3 pills x 1 week, then 4 pills nightly - take after evening meal, with applesauce or an apple NIACIN 12376875361 No Longer Active Yolande Lindsay MD PhD Active TRIAMCINOLONE ACETONIDE 0.1 % CREA apply bid sparingly to rash TRIAMCINOLONE ACETONIDE 98298691651 Active Yolande Lindsay MD PhD Active FUROSEMIDE 20 MG TAB 1 tablet by mouth daily FUROSEMIDE 60210744730 Active Gab Padron MD Active LISINOPRIL 20 MG ORAL TABS 1 tab by mouth daily LISINOPRIL 35650740391 Active Gab Padron MD Active FUROSEMIDE 20 MG TABS 1 pill by mouth daily, for edema FUROSEMIDE 25128426446 No Longer Active Yolande Lindsay MD PhD Active ATORVASTATIN CALCIUM 10 MG TABS 1 pill by mouth daily, for cholesterol 09/06 ATORVASTATIN CALCIUM 41621545290 Active Gab Padron MD Active CALCIUM 600+D PLUS MINERALS 600-400 MG-UNIT ORAL CHEW 1 tab by mouth daily CALCIUM CARBONATE-VIT D-MIN 43279692585 No Longer Active Yolande Lindsay MD PhD Active CYCLOBENZAPRINE HCL 10 MG TABS 1 tablet by mouth three times daily as needed for muscle spasm/pain CYCLOBENZAPRINE HCL 76686103006 Active Yolande Lindsay MD PhD Active ADULT ASPIRIN EC LOW STRENGTH 81 MG TBEC Take 1 tablet by mouth daily 2014 ASPIRIN 49306020835 No Longer Active Yolande Lindsay MD PhD Active ZOFRAN ODT 4 MG TBDP 1 pill dissolved by mouth every 4 hours if needed for nausea ONDANSETRON 17084735020 No Longer Active Yolande Lindsay MD PhD Active CEFTIN 500 MG TAB 1 twice a day CEFUROXIME AXETIL 06759987694 No Longer Active Yolande Lindsay MD PhD Active ALBUTEROL SULFATE 0.083 % NEBU SOLN one vial per nebulizer every 4-6 hours as needed ALBUTEROL SULFATE 37617972054 No Longer Active Alexis Ordaz MD Active DOXYCYCLINE HYCLATE 100 MG CAP 1 cap by mouth twice daily DOXYCYCLINE HYCLATE 11435344705 No Longer Active Yolande Lindsay MD PhD Active CYCLOBENZAPRINE HCL 10 MG TABS 1/2 - 1 tab by mouth three times daily if needed for spasms/pain CYCLOBENZAPRINE HCL 48871043849 No Longer Active Yolande Lindsay MD PhD Active AZITHROMYCIN 250 MG TABS 2 pills on day 1, then 1 pill daily x 4 days AZITHROMYCIN 73161157745 No Longer Active Yolande Lindsay MD PhD Active XOPENEX 1.25 MG/3ML NEBU 1 neb every 4 hours if needed for cough/congestion LEVALBUTEROL HCL 66899500749 No Longer Active Yolande Lindsay MD PhD Active DOXYCYCLINE HYCLATE 100 MG TAB 1 tab twice a day for 14 days 2013 DOXYCYCLINE HYCLATE 04379189576 No Longer Active Yolande Lindsay MD PhD Active PREVACID 30 MG CPDR Take 1 tablet by mouth daily-PRN LANSOPRAZOLE 92846915608 No Longer Active Yolande Lindsay MD PhD Active PA VITAMIN D-3 2000 UNIT CAPS 1 CAP PO DAILY CHOLECALCIFEROL 03724631048 No Longer Active Yolande Lindsay MD PhD Active CEFDINIR 300 MG CAPS by mouth twice a day CEFDINIR 30593884359 No Longer Active Gab Padron MD Active TOPAMAX 50 MG TABS 1 PO twice daily TOPIRAMATE 54735292254 Active Yolande Lindsay MD PhD Active AZITHROMYCIN 250 MG TABS 2 po qd x 1 day, then 1 po qd x 4 days AZITHROMYCIN 77266611297 No Longer Active Yolande Lindsay MD PhD Active DICLOFENAC SODIUM 75 MG TBEC 1 tablet by q 12 hours PRN headaches DICLOFENAC SODIUM 73717938087 No Longer Active Yolande Lindsay MD PhD Active FLONASE 50 MCG/ACT SUSP 1 spray each nostril am and hs FLUTICASONE PROPIONATE 04080252267 No Longer Active Todd Callaway MD Active ANUSOL-HC 25 MG SUPPOSITORY 1 rectally twice a day as needed for hemorrhoids HYDROCORTISONE JAYDEN (RECTAL) 17765198878 No Longer Active Yolande Lindsay MD PhD Active ANUSOL-HC 25 MG SUPPOSITORY 1 suppository rectally each evening as needed for anal fissure HYDROCORTISONE JAYDEN (RECTAL) 30282679746 No Longer Active LONNIE Iglesias Active VALIUM 5 MG TAB 1 po 30 minutes prior to your MRI DIAZEPAM 62033303685 No Longer Active LONNIE Iglesias Active METHOCARBAMOL 750 MG TABS 1 PO QID PRN METHOCARBAMOL 70725710024 No Longer Active Daphne Wetzel APRN Active NITROSTAT 0.4 MG SUBL as directed NITROGLYCERIN 94775812889 No Longer Active Rodrigo Sarah APRN Active ROBAXIN-750 750 MG TABS 2 four times a day for 3 days as needed for muscle spasm, then 1 four times a day as needed METHOCARBAMOL 55422949130 No Longer Active Rodrigo Sarah APRN Active HYDROCODONE-ACETAMINOPHEN 5-325 MG TABS 1 q 4-6 hrs prn HYDROCODONE-ACETAMINOPHEN 27188433641 No Longer Active Rodrigo Sarah LEAD JAVASCRIPT DEVELOPER Active VERAPAMIL HCL CR 180 MG CR-TABS TAKE 1 TAB DAILY VERAPAMIL HCL 03021377674 No Longer Active Yolande Lindsay MD PhD Active BACTRIM DS 800-160 MG TAB 1 tab by mouth twice daily TRIMETHOPRIM-SULFAMETHOXAZOLE 35651242955 No Longer Active Yolande Lindsay MD PhD Active NEXIUM 40 MG PACK 1 by mouth daily ESOMEPRAZOLE MAGNESIUM 83634644503 No Longer Active Des Hines MD Active EPIPEN 2-CHARLETTE 0.3 MG/0.3ML OMARI as need for allergic reaction EPINEPHRINE 46361704476 Active Yolande Lindsay MD PhD Active NEXIUM 40 MG CPDR 1 PO Q D DAY ESOMEPRAZOLE MAGNESIUM 67896917226 No Longer Active Sadia Perry RN Active NEXIUM 40 MG PACK 1 by mouth daily NEXIUM 40 MG PACK ESOMEPRAZOLE MAGNESIUM Inactive VERAPAMIL HCL CR 180 MG CR-TABS TAKE 1 TAB DAILY VERAPAMIL HCL CR 180 MG CR-TABS VERAPAMIL HCL Inactive HYDROCODONE-ACETAMINOPHEN 5-325 MG TABS 1 q 4-6 hrs prn HYDROCODONE-ACETAMINOPHEN 5-325 MG TABS 590808 HYDROCODONE-ACETAMINOPHEN Inactive ROBAXIN-750 750 MG TABS 2 four times a day for 3 days as needed for muscle spasm, then 1 four times a day as needed ROBAXIN-750 750 MG TABS 032433 METHOCARBAMOL Inactive NITROSTAT 0.4 MG SUBL as directed NITROSTAT 0.4 MG SUBL 486205 NITROGLYCERIN Inactive METHOCARBAMOL 750 MG TABS 1 PO QID PRN METHOCARBAMOL 750 MG TABS 611470 METHOCARBAMOL Inactive VALIUM 5 MG TAB 1 po 30 minutes prior to your MRI VALIUM 5 MG TAB 512677 DIAZEPAM Inactive ANUSOL-HC 25 MG SUPPOSITORY 1 suppository rectally each evening as needed for anal fissure ANUSOL-HC 25 MG SUPPOSITORY 5353621 HYDROCORTISONE JAYDEN (RECTAL) Inactive ANUSOL-HC 25 MG SUPPOSITORY 1 rectally twice a day as needed for hemorrhoids ANUSOL-HC 25 MG SUPPOSITORY 4133515 HYDROCORTISONE JAYDEN (RECTAL) Inactive FLONASE 50 MCG/ACT SUSP 1 spray each nostril am and hs FLONASE 50 MCG/ACT SUSP 3036812 FLUTICASONE PROPIONATE Inactive DICLOFENAC SODIUM 75 MG TBEC 1 tablet by q 12 hours PRN headaches DICLOFENAC SODIUM 75 MG TBEC 514693 DICLOFENAC SODIUM Inactive PA VITAMIN D-3 2000 UNIT CAPS 1 CAP PO DAILY PA VITAMIN D-3 2000 UNIT CAPS CHOLECALCIFEROL Inactive PREVACID 30 MG CPDR Take 1 tablet by mouth daily-PRN PREVACID 30 MG CPDR 621716 LANSOPRAZOLE Inactive DOXYCYCLINE HYCLATE 100 MG TAB 1 tab twice a day for 14 days 2013 DOXYCYCLINE HYCLATE 100 MG TAB 0586434 DOXYCYCLINE HYCLATE Inactive XOPENEX 1.25 MG/3ML NEBU 1 neb every 4 hours if needed for cough/congestion XOPENEX 1.25 MG/3ML NEBU 450644 LEVALBUTEROL HCL Inactive CYCLOBENZAPRINE HCL 10 MG TABS 1/2 - 1 tab by mouth three times daily if needed for spasms/pain CYCLOBENZAPRINE HCL 10 MG TABS 329404 CYCLOBENZAPRINE HCL Inactive ALBUTEROL SULFATE 0.083 % NEBU SOLN one vial per nebulizer every 4-6 hours as needed ALBUTEROL SULFATE 0.083 % NEBU SOLN 202551 ALBUTEROL SULFATE Inactive CEFTIN 500 MG TAB 1 twice a day CEFTIN 500 MG TAB 600840 CEFUROXIME AXETIL Inactive ZOFRAN ODT 4 MG TBDP 1 pill dissolved by mouth every 4 hours if needed for nausea ZOFRAN ODT 4 MG TBDP 775811 ONDANSETRON Inactive ADULT ASPIRIN EC LOW STRENGTH 81 MG TBEC Take 1 tablet by mouth daily 2014 ADULT ASPIRIN EC LOW STRENGTH 81 MG TBEC 967997 ASPIRIN Inactive CALCIUM 600+D PLUS MINERALS 600-400 [...] or an apple NIACIN 500 MG TABS 459977 NIACIN Inactive NIASPAN 500 MG ORAL CR-TABS 1 pill nightly x 1 week, then 2 pills nightly x 1 week, then 3 pills nightly x 1 week, then 4 pills nightly NIASPAN 500 MG ORAL CR-TABS NIACIN (ANTIHYPERLIPIDEMIC) Inactive OXYCODONE HCL 5 MG ORAL CAPS 1 TAB PO Q HS OXYCODONE HCL 5 MG ORAL CAPS 5173544 OXYCODONE HCL Inactive FLUTICASONE PROPIONATE 50 MCG/ACT SUSP 1 to 2 sprays each nostril daily 04/21 FLUTICASONE PROPIONATE 50 MCG/ACT SUSP 7872875 FLUTICASONE PROPIONATE Inactive POLYTRIM 43060-3.1 UNIT/ML-% SOLN 1 gtt to affected eye q3h x 7 days POLYTRIM 36449-3.1 UNIT/ML-% SOLN 899328 POLYMYXIN B- TRIMETHOPRIM Inactive CHERATUSSIN AC 100-10 MG/5ML SYRP 1 tsp by mouth every 4 hours as needed for cough CHERATUSSIN AC 100-10 MG/5ML SYRP 569168 GUAIFENESIN-CODEINE Inactive LEVOTHYROXINE SODIUM 75 MCG TABS Take 1 tab daily LEVOTHYROXINE SODIUM 75 MCG TABS 529334 LEVOTHYROXINE SODIUM Inactive CLARITIN 10 MG TAB 1 tablet by mouth daily as needed for allergies CLARITIN 10 MG TAB 838407 LORATADINE Inactive FISH OIL 1000 MG CAPS 3 pills daily FISH OIL 1000 MG CAPS OMEGA-3 FATTY ACIDS Inactive ONDANSETRON 4 MG TBDP 1 q4h PRN nausea ONDANSETRON 4 MG TBDP 832841 ONDANSETRON Inactive ADVAIR DISKUS 250-50 MCG/DOSE AEPB 1 puff BID ADVAIR DISKUS 250-50 MCG/DOSE AEPB FLUTICASONE-SALMETEROL Inactive BACTRIM DS 800-160 MG TAB 1 tab by mouth twice daily BACTRIM DS 800-160 MG TAB 512398 TRIMETHOPRIM-SULFAMETHOXAZOLE Inactive AZITHROMYCIN 250 MG TABS 2 po qd x 1 day, then 1 po qd x 4 days AZITHROMYCIN 250 MG TABS 5614482 AZITHROMYCIN Inactive CEFDINIR 300 MG CAPS by mouth twice a day CEFDINIR 300 MG CAPS 068249 CEFDINIR Inactive AZITHROMYCIN 250 MG TABS 2 pills on day 1, then 1 pill daily x 4 days AZITHROMYCIN 250 MG TABS 0295815 AZITHROMYCIN Inactive DOXYCYCLINE HYCLATE 100 MG CAP 1 cap by mouth twice daily DOXYCYCLINE HYCLATE 100 MG CAP 6152266 DOXYCYCLINE HYCLATE Inactive FUROSEMIDE 20 MG TABS 1 pill by mouth daily, for edema FUROSEMIDE 20 MG TABS 075011 FUROSEMIDE Inactive AZITHROMYCIN 250 MG TABS 2 po qd x 1 day, then 1 po qd x 4 days AZITHROMYCIN 250 MG TABS 5582104 AZITHROMYCIN Inactive CEFTIN 500 MG TAB 1 twice a day CEFTIN 500 MG TAB 765739 CEFUROXIME AXETIL Inactive CEFDINIR 300 MG CAPS [...] for 2 days PREDNISONE 20 MG TAB 813142 PREDNISONE Inactive PREDNISONE 20 MG TAB take 3 tabs daily for 3 days, 2 tabs daily for 3 days, 1 tab daily for 3 days, 1/2 tab daily for 3 days PREDNISONE 20 MG TAB 742243 PREDNISONE Inactive BACTRIM DS 800-160 MG TAB 1 tab by mouth twice daily BACTRIM DS 800-160 MG TAB 19820606 TRIMETHOPRIM-SULFAMETHOXAZOLE Inactive Immunizations Vaccine Administration Date Value Standard Description Seasonal influenza vaccine, injectable, containing preservative, for > 3 years old (Afluria, FluLaval, Fluzone, Fluvirin, Fluarix, Agriflu(>=18 yo)) Fluzone (>3 yrs.) [SAI246] Influenza, seasonal, injectable influenza immunization (Flu Vax) has been administered Influenza - Unspecified Formulation [CVX88] influenza virus vaccine, unspecified formulation pneumococcal immunization administered Pneumovax 23 [CVX33] pneumococcal polysaccharide vaccine, 23 valent Seasonal influenza vaccine, injectable, containing preservative, for > 3 years old (Afluria, FluLaval, Fluzone, Fluvirin, Fluarix, Agriflu(>=18 yo)) Fluzone (>3 yrs.) [DHR726] Influenza, seasonal, injectable dT (Diphtheria and Tetanus) booster given given Td(adult) unspecified formulation Boostrix (Tetanus toxoid, reduced diphtheria toxoid and acellular pertussis vaccine, adsorbed), booster Boostrix [PIY780] tetanus toxoid, reduced diphtheria toxoid, and acellular [...] Measured blood pressure, diastolic 68 mm[Hg] BP ewldon blood pressure, systolic 125 mm[Hg] BP sys pulse rate E&M 56 /min Heart rate temperature E&M 97.7 [degF] Body temperature weight E&M 247 [lb_av] Weight Measured blood pressure, diastolic 75 mm[Hg] BP weldon blood pressure, systolic 130 mm[Hg] BP sys pulse rate E&M 70 /min Heart rate temperature E&M 98.3 [degF] Body temperature weight E&M 243 [lb_av] Weight Measured blood pressure, diastolic 70 mm[Hg] BP weldon blood pressure, systolic 133 mm[Hg] BP sys pulse rate E&M 66 /min Heart rate temperature E&M 98.4 [degF] Body temperature weight E&M 246.5 [lb_av] Weight Measured blood pressure, diastolic 72 mm[Hg] BP weldon blood pressure, systolic 137 mm[Hg] BP sys pulse rate E&M 58 /min Heart rate temperature E&M 97.9 [degF] Body temperature weight E&M 247 [lb_av] Weight Measured Diagnostic Results Date Name Value Unit Range Description Lab Report: Lipid Panel, HEPATIC PANEL - Chemistry cholesterol, serum 166 mg/dL 931-182 9424/12/06 triglyceride, serum, fasting 86 mg/dL 30-200 HDL [...] Negative mg/dL Negative sodium, serum 142 mmol/L 549-503 8446/07/18 carbon dioxide, venous blood 27.8 mmol/L 21.0-32.0 [...] nitrite, urine, semiquantitative Negative Negative Office Visit: 6 MO F/U - Basic [...] negative Encounters Code Encounter Date Provider Facility CPT-71044 Level 3 Est. Patient 14:46:09 CDT Tisha Lambert APRN [facility] CPT-89389 Level 4 New Patient 16:13:15 CDT Todd Callaway MD [facility] CPT-08415 Level 4 Est. Patient 13:18:33 CDT Gab Padron MD [facility] CPT-61041 Level 3 Est. Patient 15:20:50 CDT Jared Og MD [facility]-89003 Level 3 Est. Patient 17:43:55 ENGINEERING COORDINATOR Gab Padron MD [facility] CPT-07100 Level 3 Est. Patient 17:07:49 ENGINEERING COORDINATOR Jared Og MD [facility] CPT-73068 Level 4 Est. Patient 19:55:18 ENGINEERING COORDINATOR Jared Og MD [facility]-71006 Level 3 Est. Patient 20:13:34 ENGINEERING COORDINATOR Jared Og MD [facility] CPT-92928 Level 4 Est. Patient 16:31:27 CDT Gab Padron MD [facility] CPT-09000 Level 2 Est. Patient 12:23:38 CDT Jared Og MD [facility]-40464 Level 3 Est. Patient 11:01:51 CDT Gab Padron MD [facility]-15545 Level 3 Est. Patient 15:27:02 CDT Jared Og MD [facility]-07759 Level 4 Est. Patient 09:25:27 CDT Gab Padron MD [facility]-80077 Level 3 Est. Patient 10:29:41 CDT Rodrigo Sarah [facility]-13005 Level 4 Est. Patient 17:51:05 CDT Gab Padron MD [facility]-79928 Level 3 Est. Patient 14:18:08 CDT Gab Padron MD [facility]-60755 Level 4 Est. Patient 10:18:54 CDT Gab Padron MD [facility]-62582 Level 3 Est. Patient 11:30:07 CDT Rodrigo Sarah [facility]-96368 Level 4 Est. Patient 21:02:30 ENGINEERING COORDINATOR Gab Padron MD [facility]-63123 Level 3 Est. Patient 11:02:19 ENGINEERING COORDINATOR Gab Padron MD [facility] CPT-14151 Level 4 Est. Patient 22:24:31 ENGINEERING COORDINATOR Gab Padron MD [facility] CPT-32202 Level 3 Est. Patient 18:33:46 ENGINEERING COORDINATOR Gab Padron MD [facility]-30785 Level 3 Est. Patient 16:19:11 CDT Yolande Lindsay MD PhD [facility]-54929 Level 3 Est. Patient 18:59:14 CDT Yolande Lindsay MD [facility]-30355 Level 4 Est. Patient 21:29:26 CDT Yolande Lindsay MD [facility]-74437 Level 3 Est. Patient 07:37:45 CDT Yolande Lindsay MD [facility] [address] CPT-61060 Level 3 Est. Patient 17:03:46 CDT Yolande Lindsay MD [facility]-03827 Level 4 Est. Patient 20:02:13 ENGINEERING COORDINATOR Yolande Lindsay MD [facility] CPT-87874 Level 3 Est. Patient 16:02:07 ENGINEERING COORDINATOR Alexis Ordaz MD [facility] CPT-74836 Level 3 Est. Patient 12:41:24 ENGINEERING COORDINATOR Yolande Lindsay MD [facility]-15843 Level 3 Est. Patient 15:41:20 ENGINEERING COORDINATOR Yolande Lindsay MD [facility]-79890 Level 3 Est. Patient 13:20:02 ENGINEERING COORDINATOR Yolande Lindsay MD [facility] CPT-23561 Level 3 Est. Patient 15:00:38 CDT Jared Og MD [facility] CPT-36785 Level 3 Est. Patient 10:22:32 CDT Yolande Lindsay MD [facility] CPT-38262 Level 3 Est. Patient 17:12:58 CDT Yolande Lindsay MD [facility] CPT-18619 Level 4 Est. Patient 13:30:58 CDT Yolande Lindsay MD [facility] CPT-28369 Level 4 New Patient 09:02:42 CDT Jared Og MD [facility] CPT-76516 Level 3 Est. Patient 08:19:07 CDT Yolande Lindsay MD [facility] CPT-49479 Level 3 Est. Patient 12:00:13 ENGINEERING COORDINATOR Gab Padron MD [facility] CPT-67915 Level 3 Est. Patient 16:15:23 ENGINEERING COORDINATOR Yolande Lindsay MD [facility]-03970 Level 2 Est. Patient 19:47:15 CDT Yolande Lindsay MD [facility]-77231 Level 3 Est. Patient 21:38:31 CDT Yolande Lindsay MD [facility]-33107 Level 3 Est. Patient 10:25:12 CDT Adiel PERAZA [facility]-13468 Level 4 Est. Patient 10:51:58 CDT Yolande Lindsay MD [facility]-10637 Level 3 Est. Patient 14:04:55 ENGINEERING COORDINATOR Rodrigo Sarah [facility]-29756 Level 3 Est. Patient 10:46:35 ENGINEERING COORDINATOR Rodrigo Sarah [facility]-06126 Level 3 Est. Patient 14:24:37 ENGINEERING COORDINATOR Yolande Lindsay MD [facility]-54611 Level 3 Est. Patient 17:41:58 ENGINEERING COORDINATOR Yolande Lindsay MD [facility]-80155 Level 2 Est. Patient 22:01:41 ENGINEERING COORDINATOR Rodrigo Sarah [facility]-20091 Level 2 Est. Patient 22:01:11 ENGINEERING COORDINATOR Rodrigo Sarah [facility]-45244 Level 3 Est. Patient 10:12:29 ENGINEERING COORDINATOR Rodrigo Sarah [facility] CPT-39416 Level 3 Est. Patient 11:05:44 CDT Alexis Ordaz MD [facility]-62202 Level 3 Est. Patient 14:57:20 CDT Yolande Lindsay MD [facility]-41217 Level 3 Est. Patient 14:40:57 CDT Yolande Lindsay MD [facility]-28149 Level 3 Est. Patient 20:55:40 CDT Yolande Lindsay MD PhD [facility] CPT-06292 Level 3 Est. Patient 12:42:38 ENGINEERING COORDINATOR Yolande Lindsay MD PhD [facility] CPT-16759 Level 3 Est. Patient 11:54:49 ENGINEERING COORDINATOR Des Hines MD [facility] CPT-13037 Level 3 Est. Patient 17:06:38 CDT Dewayne PERAZA [facility] Procedures Code Procedure Name Date Entry Date Standard Description CPT-J2930 Solu Medrol 125 mg (Methyl Prednisolone Sodium Succinate) 13:19:02 CDT CPT-41866 Abx/Therapy Injection 13:19:02 CDT CPT-J2930 Solu Medrol 125 mg (Methyl Prednisolone Sodium Succinate) 13:05:03 CDT CPT-39864 Hip, complete, 2-3 views - XRAY USE ONLY 17:19:04 ENGINEERING COORDINATOR CPT-50949 Venipuncture Draw Fee 08:37:59 ENGINEERING COORDINATOR CPT-16481 Liver Profile - LAB USE ONLY 08:37:59 ENGINEERING COORDINATOR CPT-26006 Lipid - LAB USE ONLY 08:37:58 ENGINEERING COORDINATOR CPT-24307 First Vx - Ix admin via ID IM or jet injects without counseling by physician 11:52:31 CDT CPT-76719 Fluzone Preservative Free Intramuscular Suspension 11:52 :31 CDT CPT-10314 Foot, left, comp min 3V - XRAY USE ONLY 09:24:54 CDT CPT-67367 Abd single AP View - XRAY USE ONLY 11:16:17 CDT CPT-17845 T spine AP/ Lat - XRAY USE ONLY 09:34:21 CDT CPT-81254 Chest 2V Frontal and Lat - XRAY USE ONLY 10:48:51 CDT CPT-03044 LS spine comp w obliq 13:28:00 ENGINEERING COORDINATOR CPT-J1040 Depo Medrol 80 mg (Methyl Prednisolone Acetate) 10:51: 28 ENGINEERING COORDINATOR CPT-J1100 Decadron 8mg (Dexamethasone) 10:51:28 ENGINEERING COORDINATOR CPT-57640 Abx/Therapy Injection 10:51:28 ENGINEERING COORDINATOR CPT-J1100 Decadron 8mg (Dexamethasone) 21:02:30 ENGINEERING COORDINATOR CPT-J1040 Depo Medrol 80 mg (Methyl Prednisolone Acetate) 21:02: 30 ENGINEERING COORDINATOR [id number] Event Monitor - MC Transmission 09:12:32 CDT 08/06 [id number] Event Monitor - MC review and interp 09:12:32 CDT [id number] Event Monitor - MC recording 09:12:32 CDT CPT-28960 EKG Trac and Interp 16:50:22 CDT CPT-J1030 Depo Medrol 40 mg (Methyl Prednisolone Acetate) 17:05: 54 CDT CPT-J1100 Decadron 4mg (Dexamethasone) 17:05:54 CDT CPT-42504 Abx/Therapy Injection 17:05:54 CDT CPT-J1100 Decadron 4mg (Dexamethasone) 16:55:28 CDT CPT-J1030 Depo Medrol 40 mg (Methyl Prednisolone Acetate) 16:55: 28 CDT CPT-43520 Ankle Complete - Min 3V 15:58:50 CDT CPT-34424 Knee 3V 15:58:50 CDT CPT-93950 Hip comp min 2V 15:58:50 CDT CPT-J2270 Morphine Sulfate 10 mg 14:25:44 ENGINEERING COORDINATOR CPT-J2550 Phenergan 12.5 mg (Promethazine) 14:25:44 ENGINEERING COORDINATOR CPT-15713 Abx/Therapy Injection 14:25:44 ENGINEERING COORDINATOR CPT-J2550 Phenergan 12.5 mg (Promethazine) 14:08:03 ENGINEERING COORDINATOR CPT-J2270 Morphine Sulfate 10 mg 14:08:03 ENGINEERING COORDINATOR CPT-82988 Bladder Scan 15:00:38 CDT CPT-TCMM Transitional Care Mgmt-Moderate 09:52:22 CDT CPT-J1030 Depo Medrol 40 mg (Methyl Prednisolone Acetate) 10:55: 18 CDT CPT-J1100 Decadron 4mg (Dexamethasone) 10:55:18 CDT CPT-44062 Abx/Therapy Injection 10:55:18 CDT CPT-J1030 Depo Medrol 40 mg (Methyl Prednisolone Acetate) 10:22: 32 CDT CPT-J1100 Decadron 4mg (Dexamethasone) 10:22:32 CDT CPT-32335 Postop F/U Visit 14:37:13 CDT CPT-28196 Ankle Complete - Min 3V 17:11:58 CDT CPT-32711 Foot comp min 3V 17:11:58 CDT CPT-97953 Bladder Scan 09:56:58 CDT CPT-84394 Postop F/U Visit 09:56:58 CDT CPT-88445 Cystoscopy 09:02:42 CDT CPT-29226 Bladder Scan 09:02:42 CDT CPT-90059 Abd single AP View 16:00:35 CDT CPT-81639 Administration single or combination vaccine inc oral 10 :15:43 CDT CPT-19125 Influenza split virus > age 3 10:15:43 CDT CPT-90513 Nail Avulsion 09:24:57 CDT CPT-OV Office Visit 11:15:41 CDT CPT-18555 Abx/Therapy Injection 10:51:30 CDT CPT-J3301 Kenalog 40 mg (Triamcinolone Acetonide) 10:25:12 CDT CPT-J1100 Decadron 4mg (Dexamethasone) 10:25:12 CDT CPT-15021 Anoscopy diagnostic 10:36:12 CDT CPT-OV Office Visit 15:34:31 CDT CPT-78056 Abx/Therapy Injection 08:21:15 ENGINEERING COORDINATOR CPT-J1885 Toradol 60 mg (Ketorolac) 10:46:35 ENGINEERING COORDINATOR CPT-OV Office Visit 19:51:16 ENGINEERING COORDINATOR CPT-55205 Spec Collection and Handling Fee 14:34:18 ENGINEERING COORDINATOR CPT-PV Prev. Care Visit 14:19:18 ENGINEERING COORDINATOR CPT-84974 Postop F/U Visit 14:47:51 ENGINEERING COORDINATOR CPT-86929 Postop F/U Visit 15:15:14 ENGINEERING COORDINATOR CPT-62109 Postop F/U Visit 14:41:43 CDT CPT-60016 Postop F/U Visit 15:47:46 CDT CPT-OV Office Visit 15:27:23 CDT CPT-OV Office Visit 17:20:34 CDT CPT-10845 Abx/Therapy Injection 15:05:57 CDT CPT-J1100 Decadron 8mg (Dexamethasone) 14:44:57 CDT CPT-J1040 Depo Medrol 80 mg (Methyl Prednisolone Acetate) 14:44: 57 CDT CPT-JTINJ Joint Injection 10:17:37 CDT CPT-60157 Administration 2+ single or combination vaccines inc oral 13:01:46 ENGINEERING COORDINATOR CPT-14941 Administration single or combination vaccine inc oral 13 :01:46 ENGINEERING COORDINATOR CPT-83509 Pneumovax 13:01:46 ENGINEERING COORDINATOR CPT-61989 Influenza split virus > age 3 13:01:46 ENGINEERING COORDINATOR CPT-65934 Administration single or combination vaccine inc oral 08 :56:49 CDT CPT-11508 Tdap 08:56:49 CDT
--- OUTSIDE RECORDS SUMMARY | 2017-03-21 20:15 | XMS REPORT | Clinical Summary ---
Author Author Admin, MARGRET Organization [employer] Address Unknown Phone Unavailable Allergies, Adverse Reactions, Alerts Allergy Name Reaction Description Start Date Severity Status Provider VALENTIN Critical Active Rodrigo Montemayorl APPLICATION INTEGRATION ARCHITECT CHLORHEXIDINE GLUCONATE tongue and gums swollen Critical Active Hoa Kabaford RMA NORFLEX Rash Critical Active Rowenaina Frazell APPLICATION INTEGRATION ARCHITECT TRAZODONE HCL sees things Critical Active Dewayne [...] unspecified, not elsewhere classified GERD 530.81 Resolved oTdd Callaway MD Esophageal reflux BACK PAIN 724.5 [...] PhD Esophageal reflux RECTAL BLEEDING 569.3 Resolved Yolaned Lindsay MD PhD Hemorrhage of rectum and [...] infarction, hx of 412 Active Hoa Otto [facility] Old myocardial infarction Pelvic pain 789.09 Active Yolande Lindsay MD PhD Abdominal pain, other specified site; multiple sites Edema 782.3 Active Yolande Lindsay MD PhD Edema Rash 782.1 Active Yolande Lindsay MD PhD Rash and other nonspecific skin eruption Back pain, lumbar 724.2 Active Gab Padron MD Lumbago Cough 786.2 Active Jillina Tyrel APPLICATION INTEGRATION ARCHITECT Cough 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 Jillina Frazellilian ZAPATAN 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 Anemia 285.9 Active Gab Padron MD Anemia, unspecified Conjunctivitis 372.30 Active Jillnacho Sarah APRN Conjunctivitis, unspecified Sinusitis 473.9 Active Jillina Frazell APPLICATION INTEGRATION ARCHITECT Unspecified sinusitis (chronic) Nonspecific syndrome suggestive of viral illness 079.99 Active Jillina Siml APPLICATION INTEGRATION ARCHITECT Unspecified viral infection Laryngitis 464.00 Active Jillina Farshadzell APPLICATION INTEGRATION ARCHITECT Acute laryngitis without mention of obstruction Abdominal [...] Flank pain, left 789.09 Active Jillina Siml DAIN Abdominal pain, other specified site; multiple sites Abdominal pain, generalized 789.07 Active Silvestrellina Siml APPLICATION INTEGRATION ARCHITECT Abdominal pain, generalized Back pain, thoracic region, left 724.1 Active Jillina Farshadzell APPLICATION INTEGRATION ARCHITECT Pain in thoracic spine Abdominal pain, left [...] 1/2 tab daily for 2 days PREDNISONE 04932877338 No Longer Active Gab Padron MD Active ZOFRAN ODT 4 MG TBDP 1 po q6hr PRN Nausea ONDANSETRON 29765937440 Active Gab Padron MD Active IBUPROFEN 600 MG TAB 1 tablet by mouth every 6 hours for 7 days, then 1 tablet every 6 hours as needed. Take with food IBUPROFEN 95951863746 Active Rodrigo Sarah APRN Active BACTRIM DS 800-160 MG TAB 1 tab by mouth twice daily TRIMETHOPRIM-SULFAMETHOXAZOLE 39531489915 No Longer Active Gab Padron MD Active ADVAIR DISKUS 250-50 MCG/DOSE AEPB 1 puff BID FLUTICASONE- SALMETEROL 47981264566 Active Rodrigo Sarah APRN Active LEVOTHYROXINE SODIUM 75 MCG TABS Take 1 tab daily LEVOTHYROXINE SODIUM 05739137297 No Longer Active Mariana Cuadra A Active SYNTHROID 88 MCG ORAL TABS Take one by mouth daily LEVOTHYROXINE SODIUM 56968853677 Active Gab Padron MD Active CHERATUSSIN AC 100-10 MG/5ML SYRP 1 tsp by mouth every 4 hours as needed for cough GUAIFENESIN-CODEINE 27418635253 No Longer Active Gab Padron MD Active POLYTRIM 09256-6.1 UNIT/ML-% SOLN 1 gtt to affected eye q3h x 7 days POLYMYXIN B-TRIMETHOPRIM 13437710438 No Longer Active Gab Padron MD Active FLUTICASONE PROPIONATE 50 MCG/ACT SUSP 1 to 2 sprays each nostril daily 04/21 FLUTICASONE PROPIONATE 79124862981 No Longer Active Gab Padron MD Active TRILEPTAL 600 MG TABS Take one 1 tablet in Am and 1 tablet at night OXCARBAZEPINE 23503523229 Active Gab Padron MD Active CEFDINIR 300 MG CAPS 1 po BID x 10 days CEFDINIR 42262869405 No Longer Active Rodrigo Sarah APRN Active CEFTIN 500 MG TAB 1 twice a day CEFUROXIME AXETIL 17326530775 No Longer Active Gab Padron MD Active AZITHROMYCIN 250 MG TABS 2 po qd x 1 day, then 1 po qd x 4 days AZITHROMYCIN 65236927338 No Longer Active Rodrigo Sarah APRN Active CLARITIN 10 MG TAB 1 tablet by mouth daily as needed for allergies LORATADINE 13579465351 Active Rodrigo Sarah APRN Active OXYCODONE HCL 5 MG ORAL CAPS 1 TAB PO Q HS OXYCODONE HCL 12800040886 No Longer Active Rodrigo Sarah APRN Active NIASPAN 500 MG ORAL CR-TABS 1 pill nightly x 1 week, then 2 pills nightly x 1 week, then 3 pills nightly x 1 week, then 4 pills nightly NIACIN (ANTIHYPERLIPIDEMIC) 57604872385 No Longer Active Rodrigo Sarah APRN Active NIACIN 500 MG TABS 1 pill by mouth nightly x 1 week, then 2 pills x 1 week, then 3 pills x 1 week, then 4 pills nightly - take after evening meal, with applesauce or an apple NIACIN 74343838888 No Longer Active Yolande Lindsay MD PhD Active FISH OIL 1000 MG CAPS 3 pills daily OMEGA-3 FATTY ACIDS 67257984920 Active Yolande Lindsay MD PhD Active TRIAMCINOLONE ACETONIDE 0.1 % CREA apply bid sparingly to rash TRIAMCINOLONE ACETONIDE 37568141748 Active Yolande Lindsay MD PhD Active FUROSEMIDE 20 MG TAB 1 tablet by mouth daily FUROSEMIDE 57135106542 Active Tisha Lambert APRN Active LISINOPRIL 20 MG ORAL TABS 1 tab by mouth daily LISINOPRIL 14865953308 Active Tisha Lambert APRN Active FUROSEMIDE 20 MG TABS 1 pill by mouth daily, for edema FUROSEMIDE 62344371927 No Longer Active Yolande Lindsay MD PhD Active ATORVASTATIN CALCIUM 10 MG TABS 1 pill by mouth daily, for cholesterol 09/06 ATORVASTATIN CALCIUM 56497813234 Active Gab Padron MD Active CALCIUM 600+D PLUS MINERALS 600-400 MG-UNIT ORAL CHEW 1 tab by mouth daily CALCIUM CARBONATE-VIT D-MIN 06372096530 No Longer Active Yolande Lindsay MD PhD Active CYCLOBENZAPRINE HCL 10 MG TABS 1 tablet by mouth three times daily as needed for muscle spasm/pain CYCLOBENZAPRINE HCL 69686136868 Active Yolande Lindsay MD PhD Active ONDANSETRON 4 MG TBDP 1 q4h PRN nausea ONDANSETRON 08559702707 Active Yolande Lindsay MD PhD Active ADULT ASPIRIN EC LOW STRENGTH 81 MG TBEC Take 1 tablet by mouth daily 2014 ASPIRIN 76548154910 No Longer Active Yolande Lindsay MD PhD Active ZOFRAN ODT 4 MG TBDP 1 pill dissolved by mouth every 4 hours if needed for nausea ONDANSETRON 61569837940 No Longer Active Yolande Lindsay MD PhD Active CEFTIN 500 MG TAB 1 twice a day CEFUROXIME AXETIL 70558315265 No Longer Active Yolande Lindsay MD PhD Active ALBUTEROL SULFATE 0.083 % NEBU SOLN one vial per nebulizer every 4-6 hours as needed ALBUTEROL SULFATE 67837542954 No Longer Active Alexis Ordaz MD Active DOXYCYCLINE HYCLATE 100 MG CAP 1 cap by mouth twice daily DOXYCYCLINE HYCLATE 04685792036 No Longer Active Yolande Lindsay MD PhD Active CYCLOBENZAPRINE HCL 10 MG TABS 1/2 - 1 tab by mouth three times daily if needed for spasms/pain CYCLOBENZAPRINE HCL 39053714266 No Longer Active Yolande Lindsay MD PhD Active AZITHROMYCIN 250 MG TABS 2 pills on day 1, then 1 pill daily x 4 days AZITHROMYCIN 65139342783 No Longer Active Yolande Lindsay MD PhD Active XOPENEX 1.25 MG/3ML NEBU 1 neb every 4 hours if needed for cough/congestion LEVALBUTEROL HCL 28335588839 No Longer Active Yolande Lindsay MD PhD Active DOXYCYCLINE HYCLATE 100 MG TAB 1 tab twice a day for 14 days 2013 DOXYCYCLINE HYCLATE 48922330693 No Longer Active Yolande Lindsay MD PhD Active PREVACID 30 MG CPDR Take 1 tablet by mouth daily-PRN LANSOPRAZOLE 60446161388 No Longer Active Yolande Lindsay MD PhD Active PA VITAMIN D-3 2000 UNIT CAPS 1 CAP PO DAILY CHOLECALCIFEROL 62773638494 No Longer Active Yolande Lindsay MD PhD Active CEFDINIR 300 MG CAPS by mouth twice a day CEFDINIR 12930367624 No Longer Active Gab Padron MD Active TOPAMAX 50 MG TABS 1 PO twice daily TOPIRAMATE 58302170670 Active Yolande Lindsay MD PhD Active AZITHROMYCIN 250 MG TABS 2 po qd x 1 day, then 1 po qd x 4 days AZITHROMYCIN 29292368473 No Longer Active Yolande Lindsay MD PhD Active DICLOFENAC SODIUM 75 MG TBEC 1 tablet by q 12 hours PRN headaches DICLOFENAC SODIUM 82990978238 No Longer Active Yolande Lindsay MD PhD Active FLONASE 50 MCG/ACT SUSP 1 spray each nostril am and hs FLUTICASONE PROPIONATE 40928567284 No Longer Active Todd Callaway MD Active ANUSOL-HC 25 MG SUPPOSITORY 1 rectally twice a day as needed for hemorrhoids HYDROCORTISONE JAYDEN (RECTAL) 69238661652 No Longer Active Yolande Lindsay MD PhD Active ANUSOL-HC 25 MG SUPPOSITORY 1 suppository rectally each evening as needed for anal fissure HYDROCORTISONE JAYDEN (RECTAL) 95716348660 No Longer Active LONNIE Iglesias Active VALIUM 5 MG TAB 1 po 30 minutes prior to your MRI DIAZEPAM 08836118297 No Longer Active LONNIE Iglesias Active METHOCARBAMOL 750 MG TABS 1 PO QID PRN METHOCARBAMOL 41269197673 No Longer Active Daphne APPLICATION INTEGRATION ARCHITECT Active NITROSTAT 0.4 MG SUBL as directed NITROGLYCERIN 98219521102 No Longer Active Rodrigo Sarah APRN Active ROBAXIN-750 750 MG TABS 2 four times a day for 3 days as needed for muscle spasm, then 1 four times a day as needed METHOCARBAMOL 32785110308 No Longer Active Rodrigo Sarah APRN Active HYDROCODONE-ACETAMINOPHEN 5-325 MG TABS 1 q 4-6 hrs prn HYDROCODONE-ACETAMINOPHEN 04750293566 No Longer Active Rodrigo Sarah APRN Active VERAPAMIL HCL CR 180 MG CR-TABS TAKE 1 TAB DAILY VERAPAMIL HCL 41197754347 No Longer Active Yolande Lindsay MD PhD Active BACTRIM DS 800-160 MG TAB 1 tab by mouth twice daily TRIMETHOPRIM-SULFAMETHOXAZOLE 45090892431 No Longer Active Yolande Lindsay MD PhD Active NEXIUM 40 MG PACK 1 by mouth daily ESOMEPRAZOLE MAGNESIUM 76250572213 No Longer Active Des Hines MD Active EPIPEN 2-CHARLETTE 0.3 MG/0.3ML OMARI as need for allergic reaction EPINEPHRINE 56275889811 Active Yolande Lindsay MD PhD Active NEXIUM 40 MG CPDR 1 PO Q D DAY ESOMEPRAZOLE MAGNESIUM 78292194165 No Longer Active Sadia Perry RN Active NEXIUM 40 MG PACK 1 by mouth daily NEXIUM 40 MG PACK ESOMEPRAZOLE MAGNESIUM Inactive VERAPAMIL HCL CR 180 MG CR-TABS TAKE 1 TAB DAILY VERAPAMIL HCL CR 180 MG CR-TABS VERAPAMIL HCL Inactive HYDROCODONE-ACETAMINOPHEN 5-325 MG TABS 1 q 4-6 hrs prn HYDROCODONE-ACETAMINOPHEN 5-325 MG TABS 216510 HYDROCODONE-ACETAMINOPHEN Inactive ROBAXIN-750 750 MG TABS 2 four times a day for 3 days as needed for muscle spasm, then 1 four times a day as needed ROBAXIN-750 750 MG TABS 19780706 METHOCARBAMOL Inactive NITROSTAT 0.4 MG SUBL as directed NITROSTAT 0.4 MG SUBL 887257 NITROGLYCERIN Inactive METHOCARBAMOL 750 MG TABS 1 PO QID PRN METHOCARBAMOL 750 MG TABS 294664 METHOCARBAMOL Inactive VALIUM 5 MG TAB 1 po 30 minutes prior to your MRI VALIUM 5 MG TAB 348499 DIAZEPAM Inactive ANUSOL-HC 25 MG SUPPOSITORY 1 suppository rectally each evening as needed for anal fissure ANUSOL-HC 25 MG SUPPOSITORY 4750624 HYDROCORTISONE JAYDEN (RECTAL) Inactive ANUSOL-HC 25 MG SUPPOSITORY 1 rectally twice a day as needed for hemorrhoids ANUSOL-HC 25 MG SUPPOSITORY 8072057 HYDROCORTISONE JAYDEN (RECTAL) Inactive FLONASE 50 MCG/ACT SUSP 1 spray each nostril am and hs FLONASE 50 MCG/ACT SUSP FLUTICASONE PROPIONATE Inactive DICLOFENAC SODIUM 75 MG TBEC 1 tablet by q 12 hours PRN headaches DICLOFENAC SODIUM 75 MG TBEC 604954 DICLOFENAC SODIUM Inactive PA VITAMIN D-3 2000 UNIT CAPS 1 CAP PO DAILY PA VITAMIN D-3 2000 UNIT CAPS CHOLECALCIFEROL Inactive PREVACID 30 MG CPDR Take 1 tablet by mouth daily-PRN PREVACID 30 MG CPDR 657119 LANSOPRAZOLE Inactive DOXYCYCLINE HYCLATE 100 MG TAB 1 tab twice a day for 14 days 2013 DOXYCYCLINE HYCLATE 100 MG TAB 0481911 DOXYCYCLINE HYCLATE Inactive XOPENEX 1.25 MG/3ML NEBU 1 neb every 4 hours if needed for cough/congestion XOPENEX 1.25 MG/3ML NEBU 624256 LEVALBUTEROL HCL Inactive CYCLOBENZAPRINE HCL 10 MG TABS 1/2 - 1 tab by mouth three times daily if needed for spasms/pain CYCLOBENZAPRINE HCL 10 MG TABS 299402 CYCLOBENZAPRINE HCL Inactive ALBUTEROL SULFATE 0.083 % NEBU SOLN one vial per nebulizer every 4-6 hours as needed ALBUTEROL SULFATE 0.083 % NEBU SOLN 637068 ALBUTEROL SULFATE Inactive CEFTIN 500 MG TAB 1 twice a day CEFTIN 500 MG TAB 182221 CEFUROXIME AXETIL Inactive ZOFRAN ODT 4 MG TBDP 1 pill dissolved by mouth every 4 hours if needed for nausea ZOFRAN ODT 4 MG TBDP 748859 ONDANSETRON Inactive ADULT ASPIRIN EC LOW STRENGTH 81 MG TBEC Take 1 tablet by mouth daily 2014 ADULT ASPIRIN EC LOW STRENGTH 81 MG TBEC 545483 ASPIRIN Inactive CALCIUM 600+D PLUS MINERALS 600-400 [...] or an apple NIACIN 500 MG TABS 597501 NIACIN Inactive NIASPAN 500 MG ORAL CR-TABS 1 pill nightly x 1 week, then 2 pills nightly x 1 week, then 3 pills nightly x 1 week, then 4 pills nightly NIASPAN 500 MG ORAL CR-TABS NIACIN (ANTIHYPERLIPIDEMIC) Inactive OXYCODONE HCL 5 MG ORAL CAPS 1 TAB PO Q HS OXYCODONE HCL 5 MG ORAL CAPS 6054425 OXYCODONE HCL Inactive FLUTICASONE PROPIONATE 50 MCG/ACT SUSP 1 to 2 sprays each nostril daily 04/21 FLUTICASONE PROPIONATE 50 MCG/ACT SUSP 2542415 FLUTICASONE PROPIONATE Inactive POLYTRIM 58471-7.1 UNIT/ML-% SOLN 1 gtt to affected eye q3h x 7 days POLYTRIM 81242-9.1 UNIT/ML-% SOLN 916771 POLYMYXIN B- TRIMETHOPRIM Inactive CHERATUSSIN AC 100-10 MG/5ML SYRP 1 tsp by mouth every 4 hours as needed for cough CHERATUSSIN AC 100-10 MG/5ML SYRP 801283 GUAIFENESIN-CODEINE Inactive LEVOTHYROXINE SODIUM 75 MCG TABS Take 1 tab daily LEVOTHYROXINE SODIUM 75 MCG TABS 207103 LEVOTHYROXINE SODIUM Inactive BACTRIM DS 800-160 MG TAB 1 tab by mouth twice daily BACTRIM DS 800-160 MG TAB 19820606 TRIMETHOPRIM-SULFAMETHOXAZOLE Inactive AZITHROMYCIN 250 MG TABS 2 po qd x 1 day, then 1 po qd x 4 days AZITHROMYCIN 250 MG TABS 0242365 AZITHROMYCIN Inactive CEFDINIR 300 MG CAPS by mouth twice a day CEFDINIR 300 MG CAPS 20020708 CEFDINIR Inactive AZITHROMYCIN 250 MG TABS 2 pills on day 1, then 1 pill daily x 4 days AZITHROMYCIN 250 MG TABS 5174093 AZITHROMYCIN Inactive DOXYCYCLINE HYCLATE 100 MG CAP 1 cap by mouth twice daily DOXYCYCLINE HYCLATE 100 MG CAP 4566859 DOXYCYCLINE HYCLATE Inactive FUROSEMIDE 20 MG TABS 1 pill by mouth daily, for edema FUROSEMIDE 20 MG TABS 551297 FUROSEMIDE Inactive AZITHROMYCIN 250 MG TABS 2 po qd x 1 day, then 1 po qd x 4 days AZITHROMYCIN 250 MG TABS 1500286 AZITHROMYCIN Inactive CEFTIN 500 MG TAB 1 twice a day CEFTIN 500 MG TAB 990770 CEFUROXIME AXETIL Inactive CEFDINIR 300 MG CAPS [...] for 2 days PREDNISONE 20 MG TAB 360179 PREDNISONE Inactive Immunizations Vaccine Administration Date Value Standard Description Seasonal influenza vaccine, injectable, containing preservative, for > 3 years old (Afluria, FluLaval, Fluzone, Fluvirin, Fluarix, Agriflu(>=18 yo)) Fluzone (>3 yrs.) [LPQ558] Influenza, seasonal, injectable influenza immunization (Flu Vax) has been administered Influenza - Unspecified Formulation [CVX88] influenza virus vaccine, unspecified formulation pneumococcal immunization administered Pneumovax 23 [CVX33] pneumococcal polysaccharide vaccine, 23 valent Seasonal influenza vaccine, injectable, containing preservative, for > 3 years old (Afluria, FluLaval, Fluzone, Fluvirin, Fluarix, Agriflu(>=18 yo)) Fluzone (>3 yrs.) [MTV563] Influenza, seasonal, injectable dT (Diphtheria and Tetanus) booster given given Td(adult) unspecified formulation Boostrix (Tetanus toxoid, reduced diphtheria toxoid and acellular pertussis vaccine, adsorbed), booster Boostrix [CUP531] tetanus toxoid, reduced diphtheria toxoid, and acellular [...] Panel - Chemistry sodium, serum 142 mmol/L 669-605 7086/06/30 urea nitrogen, blood 18 mg/dL 7-18 creatinine, [...] % 11.6-14.8 platelet count 179 10^3/MM^3 10*3/mm3 421-726 5171/03/24 monocytes as percent of blood leukocytes 11.3 [...] Rate - Chemistry sodium, serum 139 mmol/L 699-904 9976/03/24 creatinine, serum 1.35 mg/dL 0.55-1.30 alanine aminotransferase [...] ... - Chemistry sodium, serum 143 mmol/L 666-995 8979/05/02 creatinine, serum 1.21 mg/dL 0.55-1.30 alanine aminotransferase [...] PANEL - Chemistry cholesterol, serum 166 mg/dL 525-400 5611/12/06 triglyceride, serum, fasting 86 mg/dL 30-200 HDL [...] dipstick Negative Negative sodium, serum 142 mmol/L 309-319 5578/07/18 carbon dioxide, venous blood 27.8 mmol/L 21.0-32.0 [...] negative Encounters Code Encounter Date Provider Facility CPT-22448 Level 3 Est. Patient 17:07:49 [employer] Jared Og MD [facility] CPT-62855 Level 4 Est. Patient 19:55:18 [employer] Jared Og MD [facility] CPT-69511 Level 3 Est. Patient 20:13:34 [employer] Jared Og MD [facility] CPT-64522 Level 4 Est. Patient 16:31:27 CDT Gab Padron MD [facility] CPT-71111 Level 2 Est. Patient 12:23:38 CDT Jared Og MD [facility] CPT-17591 Level 3 Est. Patient 11:01:51 CDT Gab Padron MD [facility] CPT-16516 Level 3 Est. Patient 15:27:02 CDT Jared Og MD [facility] CPT-39982 Level 4 Est. Patient 09:25:27 CDT Gab Pardon MD [facility] CPT-74868 Level 3 Est. Patient 10:29:41 CDT Rodrigo Sarah [facility] CPT-01658 Level 4 Est. Patient 17:51:05 CDT Gab Padron MD [facility]-13904 Level 3 Est. Patient 14:18:08 CDT Gab Padron MD [facility]-76892 Level 4 Est. Patient 10:18:54 CDT Gab Padron MD [facility] CPT-48180 Level 3 Est. Patient 11:30:07 CDT Rodrigo Sarah [facility] CPT-37684 Level 4 Est. Patient 21:02:30 [employer] Gab Padron MD [facility] CPT-26910 Level 3 Est. Patient 11:02:19 [employer] HEL[employer] Gab Padron MD [facility] CPT-71358 Level 4 Est. Patient 22:24:31 [employer] Gab Padron MD [facility] CPT-80630 Level 3 Est. Patient 18:33:46 [employer] Gab Padron MD [facility] CPT-18227 Level 3 Est. Patient 16:19:11 CDT Yolande Lindsay MD [facility]-09530 Level 3 Est. Patient 18:59:14 CDT Yolande Lindsay MD [facility] CPT-62110 Level 4 Est. Patient 21:29:26 CDT Yolande Lindsay MD [facility]-10449 Level 3 Est. Patient 07:37:45 CDT Yolande Lindsay MD [facility]-66152 Level 3 Est. Patient 17:03:46 CDT Yolande Lindsay MD [facility]-81448 Level 4 Est. Patient 20:02:13 [employer] Yolande Lindsay MD [facility]-08460 Level 3 Est. Patient 16:02:07 [employer] Alexis Ordaz MD [facility]-78610 Level 3 Est. Patient 12:41:24 [employer] Yolande Lindsay MD [facility]-81681 Level 3 Est. Patient 15:41:20 [employer] Yolande Lindsay MD [facility]-69968 Level 3 Est. Patient 13:20:02 [employer] Yolande Lindsay MD [facility]-79988 Level 3 Est. Patient 15:00:38 CDT Jared Og MD [facility] CPT-56649 Level 3 Est. Patient 10:22:32 CDT Yolande Lindsay MD [facility]-69196 Level 3 Est. Patient 17:12:58 CDT Yolande Lindsay MD [facility] CPT-59656 Level 4 Est. Patient 13:30:58 CDT Yolande Lindsay MD [facility] CPT-57621 Level 4 New Patient 09:02:42 CDT Jared Og MD [facility]-83401 Level 3 Est. Patient 08:19:07 CDT Yolande Lindsay MD [facility]-22258 Level 3 Est. Patient 12:00:13 [employer] HEL[employer] Gab Padron MD [facility]-82420 Level 3 Est. Patient 16:15:23 [employer] Yolande Lindsay MD [facility]-21208 Level 2 Est. Patient 19:47:15 CDT Yolande Lindsay MD [facility]-09374 Level 3 Est. Patient 21:38:31 CDT Yolande Lindsay MD [facility]-74870 Level 3 Est. Patient 10:25:12 CDT Adiel PERAZA [facility]-05009 Level 4 Est. Patient 10:51:58 CDT Yolande Lindsay MD [facility]-46779 Level 3 Est. Patient 14:04:55 [employer] Rodrigo Sarah [facility]-22753 Level 3 Est. Patient 10:46:35 [employer] Rodrigo Sarah [facility] CPT-57645 Level 3 Est. Patient 14:24:37 [employer] Yolande Lindsay MD [facility]-86444 Level 3 Est. Patient 17:41:58 [employer] Yolande Lindsay MD [facility]-40909 Level 2 Est. Patient 22:01:41 [employer] Rodrigo Sarah [facility] CPT-97640 Level 2 Est. Patient 22:01:11 [employer] Rodrigo Sarah [facility] CPT-32810 Level 3 Est. Patient 10:12:29 [employer] Rodrigo Sarah [facility] CPT-32332 Level 3 Est. Patient 11:05:44 CDT Alexis Ordaz MD [facility]-17137 Level 3 Est. Patient 14:57:20 CDT Yolande Lindsay MD [facility]-67785 Level 3 Est. Patient 14:40:57 CDT Yolande Lindsay MD [facility]-96529 Level 3 Est. Patient 20:55:40 CDT Yolande Lindsay MD PhD [facility] CPT-73382 Level 3 Est. Patient 12:42:38 [employer] Yolande Lindsay MD PhD [facility] CPT-31634 Level 3 Est. Patient 11:54:49 [employer] Des Hines MD [facility] CPT-46744 Level 3 Est. Patient 17:06:38 CDT Dewayne PERAZA [facility] Procedures Code Procedure Name Date Entry Date Standard Description CPT-12352 Venipuncture Draw Fee 08:37:59 [employer] CPT-07516 Liver Profile - LAB USE ONLY 08:37:59 [employer] CPT-77116 Lipid - LAB USE ONLY 08:37:58 [employer] CPT-08543 First Vx - Ix admin via ID IM or jet injects without counseling by physician 11:52:31 CDT CPT-58957 Fluzone Preservative Free Intramuscular Suspension 11:52 :31 CDT CPT-06271 Foot, left, comp min 3V - XRAY USE ONLY 09:24:54 CDT CPT-18884 Abd single AP View - XRAY USE ONLY 11:16:17 CDT CPT-65340 T spine AP/ Lat - XRAY USE ONLY 09:34:21 CDT CPT-96292 Chest 2V Frontal and Lat - XRAY USE ONLY 10:48:51 CDT CPT-85460 LS spine comp w obliq 13:28:00 [employer] CPT-J1040 Depo Medrol 80 mg (Methyl Prednisolone Acetate) 10:51: 28 [employer] CPT-J1100 Decadron 8mg (Dexamethasone) 10:51:28 [employer] CPT-67413 Abx/Therapy Injection 10:51:28 [employer] CPT-J1100 Decadron 8mg (Dexamethasone) 21:02:30 [employer] CPT-J1040 Depo Medrol 80 mg (Methyl Prednisolone Acetate) 21:02: 30 [employer] [id number] Event Monitor - MC Transmission 09:12:32 CDT 08/06 [id number] Event Monitor - MC review and interp 09:12:32 CDT [id number] Event Monitor - MC recording 09:12:32 CDT CPT-53207 EKG Trac and Interp 16:50:22 CDT CPT-J1030 Depo Medrol 40 mg (Methyl Prednisolone Acetate) 17:05: 54 CDT CPT-J1100 Decadron 4mg (Dexamethasone) 17:05:54 CDT CPT-51946 Abx/Therapy Injection 17:05:54 CDT CPT-J1100 Decadron 4mg (Dexamethasone) 16:55:28 CDT CPT-J1030 Depo Medrol 40 mg (Methyl Prednisolone Acetate) 16:55: 28 CDT CPT-56428 Ankle Complete - Min 3V 15:58:50 CDT CPT-59595 Knee 3V 15:58:50 CDT CPT-25616 Hip comp min 2V 15:58:50 CDT CPT-J2270 Morphine Sulfate 10 mg 14:25:44 [employer] CPT-J2550 Phenergan 12.5 mg (Promethazine) 14:25:44 [employer] CPT-45259 Abx/Therapy Injection 14:25:44 [employer] CPT-J2550 Phenergan 12.5 mg (Promethazine) 14:08:03 [employer] CPT-J2270 Morphine Sulfate 10 mg 14:08:03 [employer] CPT-78388 Bladder Scan 15:00:38 CDT CPT-TCMM Transitional Care Mgmt-Moderate 09:52:22 CDT CPT-J1030 Depo Medrol 40 mg (Methyl Prednisolone Acetate) 10:55: 18 CDT CPT-J1100 Decadron 4mg (Dexamethasone) 10:55:18 CDT CPT-01296 Abx/Therapy Injection 10:55:18 CDT CPT-J1030 Depo Medrol 40 mg (Methyl Prednisolone Acetate) 10:22: 32 CDT CPT-J1100 Decadron 4mg (Dexamethasone) 10:22:32 CDT CPT-26072 Postop F/U Visit 14:37:13 CDT CPT-21069 Ankle Complete - Min 3V 17:11:58 CDT CPT-63385 Foot comp min 3V 17:11:58 CDT CPT-01294 Bladder Scan 09:56:58 CDT CPT-88038 Postop F/U Visit 09:56:58 CDT CPT-19599 Cystoscopy 09:02:42 CDT CPT-79015 Bladder Scan 09:02:42 CDT CPT-65375 Abd single AP View 16:00:35 CDT CPT-56373 Administration single or combination vaccine inc oral 10 :15:43 CDT CPT-81926 Influenza split virus > age 3 10:15:43 CDT CPT-54668 Nail Avulsion 09:24:57 CDT CPT-OV Office Visit 11:15:41 CDT CPT-83208 Abx/Therapy Injection 10:51:30 CDT CPT-J3301 Kenalog 40 mg (Triamcinolone Acetonide) 10:25:12 CDT CPT-J1100 Decadron 4mg (Dexamethasone) 10:25:12 CDT CPT-07854 Anoscopy diagnostic 10:36:12 CDT CPT-OV Office Visit 15:34:31 CDT CPT-13668 Abx/Therapy Injection 08:21:15 COLOR 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 Care Visit 14:19:18 COLOR SHOP HELPER CPT-30528 Postop F/U Visit 14:47:51 COLOR SHOP HELPER CPT-68376 Postop F/U Visit 15:15:14 COLOR SHOP HELPER CPT-15214 Postop F/U Visit 14:41:43 CDT CPT-18153 Postop F/U Visit 15:47:46 CDT CPT-OV Office Visit 15:27:23 CDT CPT-OV Office Visit 17:20:34 CDT CPT-47898 Abx/Therapy Injection 15:05:57 CDT CPT-J1100 Decadron 8mg (Dexamethasone) 14:44:57 CDT CPT-J1040 Depo Medrol 80 mg (Methyl Prednisolone Acetate) 14:44: 57 CDT CPT-JTINJ Joint Injection 10:17:37 CDT CPT-39152 Administration 2+ single or combination vaccines inc oral 13:01:46 COLOR SHOP HELPER CPT-83230 Administration single or combination vaccine inc oral 13 :01:46 COLOR SHOP HELPER CPT-63788 Pneumovax 13:01:46 COLOR SHOP HELPER CPT-81457 Influenza split virus > age 3 13:01:46 COLOR SHOP HELPER CPT-97190 Administration single or combination vaccine inc oral 08 :56:49 CDT CPT-52175 Tdap 08:56:49 CDT
--- OUTSIDE RECORDS SUMMARY | 2017-03-21 20:16 | XMS REPORT | Clinical Summary ---
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 things Critical Active Dewayne [...] Unspecified chest pain HEADACHE 784.0 Resolved Yolande Lindasy MD PhD Headache SPONDYLOLISTHESIS 756.12 Active Yolande [...] pill by mouth daily, for edema FUROSEMIDE 05974285167 No Longer Active Yolande Lindsay MD PhD Active FISH OIL 1000 MG CAPS 1 pill daily x 1 week, then 2 pills daily x 1 week, then 3 pills daily x 1 week, then 4 pills daily OMEGA-3 FATTY ACIDS 58908220332 Active Yolande Lindsay MD PhD Active NIACIN 500 MG TABS 1 pill by mouth nightly x 1 week, then 2 pills x 1 week, then 3 pills x 1 week, then 4 pills nightly - take after evening meal, with applesauce or an apple NIACIN 35824057510 Active Yolande Lindsay MD PhD Active ATORVASTATIN CALCIUM 10 MG TABS 1 pill by mouth daily, for cholesterol 09/06 ATORVASTATIN CALCIUM 60134401162 Active Yolande Lindsay MD PhD Active CALCIUM 600+D PLUS MINERALS 600-400 MG-UNIT ORAL CHEW 1 tab by mouth daily CALCIUM CARBONATE-VIT D-MIN 42692083407 No Longer Active Yolande Lindsay MD PhD Active CYCLOBENZAPRINE HCL 10 MG TABS 1 tablet by mouth three times daily as needed for muscle spasm/pain CYCLOBENZAPRINE HCL 07549177490 Active Yolande Lindsay MD PhD Active ONDANSETRON 4 MG TBDP 1 q4h PRN nausea ONDANSETRON 86088920387 Active Yolande Lindsay MD PhD Active ADULT ASPIRIN EC LOW STRENGTH 81 MG TBEC Take 1 tablet by mouth daily 2014 ASPIRIN 74965804994 No Longer Active Yolande Lindsay MD PhD Active ZOFRAN ODT 4 MG TBDP 1 pill dissolved by mouth every 4 hours if needed for nausea ONDANSETRON 67223410980 No Longer Active Yolande Lindsay MD PhD Active CEFTIN 500 MG TAB 1 twice a day CEFUROXIME AXETIL 15742575833 No Longer Active Yolande Lindsay MD PhD Active ALBUTEROL SULFATE 0.083 % NEBU SOLN one vial per nebulizer every 4-6 hours as needed ALBUTEROL SULFATE 13660055686 No Longer Active Alexis Ordaz MD Active DOXYCYCLINE HYCLATE 100 MG CAP 1 cap by mouth twice daily DOXYCYCLINE HYCLATE 01258879220 No Longer Active Yolande Lindsay MD PhD Active CYCLOBENZAPRINE HCL 10 MG TABS 1/2 - 1 tab by mouth three times daily if needed for spasms/pain CYCLOBENZAPRINE HCL 61562628234 No Longer Active Yolande Lindsay MD PhD Active TRILEPTAL 600 MG TABS Take one 1/2 tablet in Am and 1 tablet at night OXCARBAZEPINE 09463932300 Active Yolande Lindsay MD PhD Active AZITHROMYCIN 250 MG TABS 2 pills on day 1, then 1 pill daily x 4 days AZITHROMYCIN 89091277893 No Longer Active Yolande Lindsay MD PhD Active XOPENEX 1.25 MG/3ML NEBU 1 neb every 4 hours if needed for cough/congestion LEVALBUTEROL HCL 57238651281 No Longer Active Yolande Lindsay MD PhD Active DOXYCYCLINE HYCLATE 100 MG TAB 1 tab twice a day for 14 days 2013 DOXYCYCLINE HYCLATE 49692492761 No Longer Active Yolande Lindsay MD PhD Active LEVOTHYROXINE SODIUM 75 MCG TABS Take 1 tab daily LEVOTHYROXINE SODIUM 64046697565 Active Yolande Lindsay MD PhD Active PREVACID 30 MG CPDR Take 1 tablet by mouth daily-PRN LANSOPRAZOLE 79148605250 No Longer Active Yolande Lindsay MD PhD Active PA VITAMIN D-3 2000 UNIT CAPS 1 CAP PO DAILY CHOLECALCIFEROL 64793399846 No Longer Active Yolande Lindsay MD PhD Active CEFDINIR 300 MG CAPS by mouth twice a day CEFDINIR 43782805422 No Longer Active Gab Padron MD Active TOPAMAX 50 MG TABS 1 PO twice daily TOPIRAMATE 40305227573 Active Yolande Lindsay MD PhD Active AZITHROMYCIN 250 MG TABS 2 po qd x 1 day, then 1 po qd x 4 days AZITHROMYCIN 27662601466 No Longer Active Yolande Lindsay MD PhD Active DICLOFENAC SODIUM 75 MG TBEC 1 tablet by q 12 hours PRN headaches DICLOFENAC SODIUM 77605278437 No Longer Active Yolande Lindsay MD PhD Active FLONASE 50 MCG/ACT SUSP 1 spray each nostril am and hs FLUTICASONE PROPIONATE 71032281811 No Longer Active Todd Callaway MD Active ANUSOL-HC 25 MG SUPPOSITORY 1 rectally twice a day as needed for hemorrhoids HYDROCORTISONE JAYDEN (RECTAL) 91434282654 No Longer Active Yolande Lindsay MD PhD Active ANUSOL-HC 25 MG SUPPOSITORY 1 suppository rectally each evening as needed for anal fissure HYDROCORTISONE JAYDEN (RECTAL) 10455920717 No Longer Active LONNIE Iglesias Active VALIUM 5 MG TAB 1 po 30 minutes prior to your MRI DIAZEPAM 24323021272 No Longer Active LONNIE Iglesias Active METHOCARBAMOL 750 MG TABS 1 PO QID PRN METHOCARBAMOL 12435102699 No Longer Active Daphne Wetzel APRN Active NITROSTAT 0.4 MG SUBL as directed NITROGLYCERIN 48778760455 No Longer Active Rodrigo Sarah APRN Active ROBAXIN-750 750 MG TABS 2 four times a day for 3 days as needed for muscle spasm, then 1 four times a day as needed METHOCARBAMOL 84169359693 No Longer Active Rodrigo Sarah APRN Active HYDROCODONE-ACETAMINOPHEN 5-325 MG TABS 1 q 4-6 hrs prn HYDROCODONE-ACETAMINOPHEN 41497230996 No Longer Active Rodrigo Sarah APRN Active VERAPAMIL HCL CR 180 MG CR-TABS TAKE 1 TAB DAILY VERAPAMIL HCL 78087735280 No Longer Active Yolande Lindsay MD PhD Active BACTRIM DS 800-160 MG TAB 1 tab by mouth twice daily TRIMETHOPRIM-SULFAMETHOXAZOLE 38354684618 No Longer Active Yolande Lindsay MD PhD Active NEXIUM 40 MG PACK 1 by mouth daily ESOMEPRAZOLE MAGNESIUM 80557797938 No Longer Active Des Hines MD Active EPIPEN 2-CHARLETTE 0.3 MG/0.3ML OMARI as need for allergic reaction EPINEPHRINE 55444150243 Active Yolande Lindsay MD PhD Active LISINOPRIL 10 MG TABS 1 PO Q D FOR BP LISINOPRIL 15439439402 Active Yolande Lindsay MD PhD Active NEXIUM 40 MG CPDR 1 PO Q D DAY ESOMEPRAZOLE MAGNESIUM 63941238855 No Longer Active Sadia Perry MIGUEL Active NEXIUM 40 MG PACK 1 by mouth daily NEXIUM 40 MG PACK ESOMEPRAZOLE MAGNESIUM Inactive VERAPAMIL HCL CR 180 MG CR-TABS TAKE 1 TAB DAILY VERAPAMIL HCL CR 180 MG CR-TABS VERAPAMIL HCL Inactive HYDROCODONE-ACETAMINOPHEN 5-325 MG TABS 1 q 4-6 hrs prn HYDROCODONE-ACETAMINOPHEN 5-325 MG TABS 622415 HYDROCODONE-ACETAMINOPHEN Inactive ROBAXIN-750 750 MG TABS 2 four times a day for 3 days as needed for muscle spasm, then 1 four times a day as needed ROBAXIN-750 750 MG TABS 269463 METHOCARBAMOL Inactive NITROSTAT 0.4 MG SUBL as directed NITROSTAT 0.4 MG SUBL NITROGLYCERIN Inactive METHOCARBAMOL 750 MG TABS 1 PO QID PRN METHOCARBAMOL 750 MG TABS 381485 METHOCARBAMOL Inactive VALIUM 5 MG TAB 1 po 30 minutes prior to your MRI VALIUM 5 MG TAB 128429 DIAZEPAM Inactive ANUSOL-HC 25 MG SUPPOSITORY 1 suppository rectally each evening as needed for anal fissure ANUSOL-HC 25 MG SUPPOSITORY 8996272 HYDROCORTISONE JAYDEN (RECTAL) Inactive ANUSOL-HC 25 MG SUPPOSITORY 1 rectally twice a day as needed for hemorrhoids ANUSOL-HC 25 MG SUPPOSITORY 3307160 HYDROCORTISONE JAYDEN (RECTAL) Inactive FLONASE 50 MCG/ACT SUSP 1 spray each nostril am and hs FLONASE 50 MCG/ACT SUSP 927588 FLUTICASONE PROPIONATE Inactive DICLOFENAC SODIUM 75 MG TBEC 1 tablet by q 12 hours PRN headaches DICLOFENAC SODIUM 75 MG TBEC 086060 DICLOFENAC SODIUM Inactive PA VITAMIN D-3 2000 UNIT CAPS 1 CAP PO DAILY PA VITAMIN D-3 2000 UNIT CAPS CHOLECALCIFEROL Inactive PREVACID 30 MG CPDR Take 1 tablet by mouth daily-PRN PREVACID 30 MG CPDR 654412 LANSOPRAZOLE Inactive DOXYCYCLINE HYCLATE 100 MG TAB 1 tab twice a day for 14 days 2013 DOXYCYCLINE HYCLATE 100 MG TAB 977863 DOXYCYCLINE HYCLATE Inactive XOPENEX 1.25 MG/3ML NEBU 1 neb every 4 hours if needed for cough/congestion XOPENEX 1.25 MG/3ML NEBU 642789 LEVALBUTEROL HCL Inactive CYCLOBENZAPRINE HCL 10 MG TABS 1/2 - 1 tab by mouth three times daily if needed for spasms/pain CYCLOBENZAPRINE HCL 10 MG TABS 526813 CYCLOBENZAPRINE HCL Inactive ALBUTEROL SULFATE 0.083 % NEBU SOLN one vial per nebulizer every 4-6 hours as needed ALBUTEROL SULFATE 0.083 % NEBU SOLN 358479 ALBUTEROL SULFATE Inactive CEFTIN 500 MG TAB 1 twice a day CEFTIN 500 MG TAB 172617 CEFUROXIME AXETIL Inactive ZOFRAN ODT 4 MG TBDP 1 pill dissolved by mouth every 4 hours if needed for nausea ZOFRAN ODT 4 MG TBDP 890870 ONDANSETRON Inactive ADULT ASPIRIN EC LOW STRENGTH 81 MG TBEC Take 1 tablet by mouth daily 2014 ADULT ASPIRIN EC LOW STRENGTH 81 MG TBEC 905028 ASPIRIN Inactive CALCIUM 600+D PLUS MINERALS 600-400 [...] x 4 days AZITHROMYCIN 250 MG TABS 6136377 AZITHROMYCIN Inactive CEFDINIR 300 MG CAPS by mouth twice a day CEFDINIR 300 MG CAPS 246272 CEFDINIR Inactive AZITHROMYCIN 250 MG TABS 2 pills on day 1, then 1 pill daily x 4 days AZITHROMYCIN 250 MG TABS 2093306 AZITHROMYCIN Inactive DOXYCYCLINE HYCLATE 100 MG CAP 1 cap by mouth twice daily DOXYCYCLINE HYCLATE 100 MG CAP 1629069 DOXYCYCLINE HYCLATE Inactive FUROSEMIDE 20 MG TABS 1 pill by mouth daily, for edema FUROSEMIDE 20 MG TABS 401602 FUROSEMIDE Inactive Immunizations Vaccine Administration Date Value Standard Description Seasonal influenza vaccine, injectable, containing preservative, for > 3 years old (Afluria, FluLaval, Fluzone, Fluvirin, Fluarix, Agriflu(>=18 yo)) Fluzone (>3 yrs.) [KGW852] Influenza, seasonal, injectable influenza immunization (Flu Vax) has been administered Influenza - Unspecified Formulation [CVX88] influenza virus vaccine, unspecified formulation pneumococcal immunization administered Pneumovax 23 [CVX33] pneumococcal polysaccharide vaccine, 23 valent Seasonal influenza vaccine, injectable, containing preservative, for > 3 years old (Afluria, FluLaval, Fluzone, Fluvirin, Fluarix, Agriflu(>=18 yo)) Fluzone (>3 yrs.) [PVU714] Influenza, seasonal, injectable dT (Diphtheria and Tetanus) booster given given Td(adult) unspecified formulation Boostrix (Tetanus toxoid, reduced diphtheria toxoid and acellular pertussis vaccine, adsorbed), booster Boostrix [QCO330] tetanus toxoid, reduced diphtheria toxoid, and acellular [...] E&M - 3141-9 222 [lb_av] Weight Measured Diagnostic Results Date Name [...] Panel - Chemistry sodium, serum 145 mmol/L 903-732 2648/06/22 potassium, serum 3.9 mmol/L 3.5-5.2 chloride, serum 109 mmol/L 98-107 carbon dioxide, venous blood 23.4 mmol/L 21.0-32.0 blood glucose 92 mg/dL 65-110 calcium, serum 8.2 mg/dL 8.5-10.1 urea nitrogen, blood 24 mg/dL 7-18 creatinine, serum 1.30 mg/dL 0.60-1.30 Lab Report: [facility] Advanced Lipid and Inlammation Panel /05794 - Chemistry cholesterol, serum 198 mg/dL [phone]/04/30 HDL cholesterol, serum 65 mg/dL > OR=46 triglyceride, serum, fasting 82 mg/dL LDL cholesterol, serum 117 mg/dL cholesterol/HDL ratio, serum 3.0 calc < OR=5.0 Lab Report: CBC W/DIFF, Basic Metabolic Panel - Chemistry sodium, serum 144 mmol/L 635-669 6355/01/21 potassium, serum 4.2 mmol/L 3.5-5.2 chloride, serum [...] Panel - Chemistry sodium, serum 144 mmol/L 005-124 0896/12/15 potassium, serum 5.4 mmol/L 3.5-5.2 chloride, serum [...] UA - Chemistry sodium, serum 143 mmol/L 768-828 8779/10/24 potassium, serum 3.9 mmol/L 3.5-5.2 chloride, serum [...] 51 mg/dL 30-200 cholesterol, serum 173 mg/dL 289-935 9716/04/28 HDL cholesterol, serum 63 mg/dL 32-96 LDL [...] 0-19 Encounters Code Encounter Date Provider Facility CPT-45735 Level 4 Est. Patient 21:29:26 CDT Yolande Lindsay MD PhD [facility] CPT-89681 Level 3 Est. Patient 07:37:45 CDT Yolande Lindsay MD PhD [facility] CPT-43626 Level 3 Est. Patient 17:03:46 CDT Yolande Lindsay MD PhD [facility] CPT-96396 Level 4 Est. Patient 20:02:13 PASTE UP ARTIST Yolande Lindsay MD PhD [facility] CPT-93545 Level 3 Est. Patient 16:02:07 PASTE UP ARTIST Alexis Ordaz MD [facility] CPT-54116 Level 3 Est. Patient 12:41:24 PASTE UP ARTIST Yolande Linsday MD PhD [facility]-43411 Level 3 Est. Patient 15:41:20 PASTE UP ARTIST Yolande Lindsay MD [facility]-12047 Level 3 Est. Patient 13:20:02 PASTE UP ARTIST Yolande Lindsay MD [facility]-83242 Level 3 Est. Patient 15:00:38 CDT Jared Og MD [facility]-23706 Level 3 Est. Patient 10:22:32 CDT Yolande Lindsay MD [facility]-21967 Level 3 Est. Patient 17:12:58 CDT Yolande Lindsay MD [facility]-11237 Level 4 Est. Patient 13:30:58 CDT Yolande Lindsay MD [facility]-47236 Level 4 New Patient 09:02:42 CDT Jared Og MD [facility]-53520 Level 3 Est. Patient 08:19:07 CDT Yolande Lindsay MD [facility]-55608 Level 3 Est. Patient 12:00:13 PASTE UP ARTIST Gab Padron MD [facility]-50369 Level 3 Est. Patient 16:15:23 PASTE UP ARTIST Yolande Lindsay MD [facility] CPT-76690 Level 2 Est. Patient 19:47:15 CDT Yolande Lindsay MD [facility]-48338 Level 3 Est. Patient 21:38:31 CDT Yolande Lindsay MD [facility]-74599 Level 3 Est. Patient 10:25:12 CDT Adiel PERAZA [facility]-32283 Level 4 Est. Patient 10:51:58 CDT Yolande Lindsay MD [facility]-28347 Level 3 Est. Patient 14:04:55 PASTE UP ARTIST Rodrigo Sarah [facility] CPT-44268 Level 3 Est. Patient 10:46:35 PASTE UP ARTIST Rodrigo Sarah [facility] CPT-62352 Level 3 Est. Patient 14:24:37 PASTE UP ARTIST Yolande Lindsay MD [facility] CPT-60006 Level 3 Est. Patient 17:41:58 PASTE UP ARTIST Yolande Lindsay MD [facility] CPT-65117 Level 2 Est. Patient 22:01:41 PASTE UP ARTIST Rodrigo Sarah [facility] CPT-38922 Level 2 Est. Patient 22:01:11 PASTE UP ARTIST Rodrigo Sarah [facility] CPT-75114 Level 3 Est. Patient 10:12:29 PASTE UP ARTIST Rodrigo Sarah [facility] CPT-50964 Level 3 Est. Patient 11:05:44 CDT Alexis Ordaz MD [facility] CPT-04133 Level 3 Est. Patient 14:57:20 CDT Yolande Lindsay MD [facility] CPT-77644 Level 3 Est. Patient 14:40:57 CDT Yolande Lindsay MD [facility] CPT-16127 Level 3 Est. Patient 20:55:40 CDT Yolande Lindsay MD [facility] CPT-28246 Level 3 Est. Patient 12:42:38 PASTE UP ARTIST Yolande Lindsay MD [facility] CPT-53354 Level 3 Est. Patient 11:54:49 PASTE UP ARTIST Des Hines MD [facility] CPT-47301 Level 3 Est. Patient 17:06:38 CDT Dewayne PERAZA [facility] Procedures Code Procedure Name Date Entry Date Standard Description [id number] Event Monitor - MC Transmission 09:12:32 CDT 08/06 [id number] Event Monitor - MC review and interp 09:12:32 CDT [id number] Event Monitor - MC recording 09:12:32 CDT CPT-72849 EKG Trac and Interp 16:50:22 CDT CPT-J1030 Depo Medrol 40 mg (Methyl Prednisolone Acetate) 17:05: 54 CDT CPT-J1100 Decadron 4mg (Dexamethasone) 17:05:54 CDT CPT-69832 Abx/Therapy Injection 17:05:54 CDT CPT-J1100 Decadron 4mg (Dexamethasone) 16:55:28 CDT CPT-J1030 Depo Medrol 40 mg (Methyl Prednisolone Acetate) 16:55: 28 CDT CPT-00748 Ankle Complete - Min 3V 15:58:50 CDT CPT-19289 Knee 3V 15:58:50 CDT CPT-96328 Hip comp min 2V 15:58:50 CDT CPT-J2270 Morphine Sulfate 10 mg 14:25:44 PASTE UP ARTIST CPT-J2550 Phenergan 12.5 mg (Promethazine) 14:25:44 PASTE UP ARTIST CPT-55418 Abx/Therapy Injection 14:25:44 PASTE UP ARTIST CPT-J2550 Phenergan 12.5 mg (Promethazine) 14:08:03 PASTE UP ARTIST CPT-J2270 Morphine Sulfate 10 mg 14:08:03 PASTE UP ARTIST CPT-62365 Bladder Scan 15:00:38 CDT CPT-TCMM Transitional Care Mgmt-Moderate 09:52:22 CDT CPT-J1030 Depo Medrol 40 mg (Methyl Prednisolone Acetate) 10:55: 18 CDT CPT-J1100 Decadron 4mg (Dexamethasone) 10:55:18 CDT CPT-73872 Abx/Therapy Injection 10:55:18 CDT CPT-J1030 Depo Medrol 40 mg (Methyl Prednisolone Acetate) 10:22: 32 CDT CPT-J1100 Decadron 4mg (Dexamethasone) 10:22:32 CDT CPT-69566 Postop F/U Visit 14:37:13 CDT CPT-20736 Ankle Complete - Min 3V 17:11:58 CDT CPT-97141 Foot comp min 3V 17:11:58 CDT CPT-31242 Bladder Scan 09:56:58 CDT CPT-88036 Postop F/U Visit 09:56:58 CDT CPT-37163 Cystoscopy 09:02:42 CDT CPT-50767 Bladder Scan 09:02:42 CDT CPT-99861 Abd single AP View 16:00:35 CDT CPT-91482 Administration single or combination vaccine inc oral 10 :15:43 CDT CPT-39741 Influenza split virus > age 3 10:15:43 CDT CPT-60083 Nail Avulsion 09:24:57 CDT CPT-OV Office Visit 11:15:41 CDT CPT-56291 Abx/Therapy Injection 10:51:30 CDT CPT-J3301 Kenalog 40 mg (Triamcinolone Acetonide) 10:25:12 CDT CPT-J1100 Decadron 4mg (Dexamethasone) 10:25:12 CDT CPT-34784 Anoscopy diagnostic 10:36:12 CDT CPT-OV Office Visit 15:34:31 CDT CPT-13028 Abx/Therapy Injection 08:21:15 PASTE UP ARTIST CPT-J1885 Toradol 60 mg (Ketorolac) 10:46:35 PASTE UP ARTIST CPT-OV Office Visit 19:51:16 PASTE UP ARTIST CPT-57945 Spec Collection and Handling Fee 14:34:18 PASTE UP ARTIST CPT-PV Prev. Care Visit 14:19:18 PASTE UP ARTIST CPT-55142 Postop F/U Visit 14:47:51 PASTE UP ARTIST CPT-07329 Postop F/U Visit 15:15:14 PASTE UP ARTIST CPT-14152 Postop F/U Visit 14:41:43 CDT CPT-40093 Postop F/U Visit 15:47:46 CDT CPT-OV Office Visit 15:27:23 CDT CPT-OV Office Visit 17:20:34 CDT CPT-27410 Abx/Therapy Injection 15:05:57 CDT CPT-J1100 Decadron 8mg (Dexamethasone) 14:44:57 CDT CPT-J1040 Depo Medrol 80 mg (Methyl Prednisolone Acetate) 14:44: 57 CDT CPT-JTINJ Joint Injection 10:17:37 CDT CPT-54358 Administration 2+ single or combination vaccines inc oral 13:01:46 PASTE UP ARTIST CPT-68023 Administration single or combination vaccine inc oral 13 :01:46 PASTE UP ARTIST CPT-93808 Pneumovax 13:01:46 PASTE UP ARTIST CPT-94536 Influenza split virus > age 3 13:01:46 PASTE UP ARTIST CPT-66436 Administration single or combination vaccine inc oral 08 :56:49 CDT CPT-67407 Tdap 08:56:49 CDT
--- OUTSIDE RECORDS SUMMARY | 2017-03-21 20:16 | XMS REPORT ---
Author Author [facility] Medical Staff Organization [facility] Address [address] [id number] Phone [phone] Care Team Providers Care Estimator And Drafter Supervisor Name Role Phone REGAN HUTSON, EVELYN PP [phone] Summary purpose TRANSITION OF CARE AUTO GENERATION [...] Functional status Functional Status Finding Observation Time IV Site Location Right hand :24 IV Type peripheral :24 IV Site Information discontinued 01-27-377603:10 IV Site Start Attmpt 1 times :24 IV Site [place] 20 16-70-538242:24 IV Site Appearance WNL 04-56-257465:10 IV Site Color clear 37-36-419460:10 IV Site Patent yes [id number]:10 Dressing Type gauze :10 Nursing Note Second set of scans completed. Verbal and written discharge instructions given. Patient voices understanding. Patient also given a to go bag with juice and peanut butter crackers. Chest pain is a "0". Patient ambulates from unit in good condition. [id number]:26 Vital signs Type Value Date Height 64inches :30 Weight 244LB :30 Social history No Social History or smoking status observations were recorded for this visit. ( Unknown if ever smoked.) Treatment Plan No treatment plan text is available for this visit. Hospital discharge instructions Discharge Date/Time 09/05/2015925 Accompanied By self Dismissal Condition good Disposition on DC home Valuables yes Valuable Type billfold/purse Valuables Returned T patient DC Inst/Educ Give yes
--- OUTSIDE RECORDS SUMMARY | 2017-03-21 20:18 | XMS REPORT | Clinical Summary ---
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 Rodrigo Sarah FINANCE ATTORNEY 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 FOOT PAIN, RIGHT ICD-729.5 Inactive Yolande Lindsay [...] Generic Name ND Status Provider Patient Instruction AZITHROMYCIN 250 MG TABS 2 po qd x 1 day, then 1 po qd x 4 days AZITHROMYCIN 30877438365 No Longer Active Rodrigo Sarah APRN Active CLARITIN 10 MG TAB 1 tablet by mouth daily as needed for allergies LORATADINE 35052274594 Active Jibernabe Frahossein ZAPATAN Active OXYCODONE HCL 5 MG ORAL CAPS 1 TAB PO Q HS OXYCODONE HCL 96662248050 No Longer Active Jibernabe Sarah APRN Active NIASPAN 500 MG ORAL CR-TABS 1 pill nightly x 1 week, then 2 pills nightly x 1 week, then 3 pills nightly x 1 week, then 4 pills nightly NIACIN (ANTIHYPERLIPIDEMIC) 48639807124 No Longer Active Jillina Frahossein GAUTAM Active NIACIN 500 MG TABS 1 pill by mouth nightly x 1 week, then 2 pills x 1 week, then 3 pills x 1 week, then 4 pills nightly - take after evening meal, with applesauce or an apple NIACIN 40382487521 No Longer Active Yolande Lindsay MD PhD Active FISH OIL 1000 MG CAPS 3 pills daily OMEGA-3 FATTY ACIDS 10741390567 Active Yolande Lindsay MD PhD Active TRIAMCINOLONE ACETONIDE 0.1 % CREA apply bid sparingly to rash TRIAMCINOLONE ACETONIDE 44006896775 Active Yolande Lindsay MD PhD Active FUROSEMIDE 20 MG TAB 1 tablet by mouth daily FUROSEMIDE 74219589062 Active Yolande Lindsay MD PhD Active LISINOPRIL 20 MG ORAL TABS 1 tab by mouth daily LISINOPRIL 25209132703 Active Yolande Lindsay MD PhD Active FUROSEMIDE 20 MG TABS 1 pill by mouth daily, for edema FUROSEMIDE 04715106867 No Longer Active Yolande Lindsay MD PhD Active ATORVASTATIN CALCIUM 10 MG TABS 1 pill by mouth daily, for cholesterol 09/06 ATORVASTATIN CALCIUM 00198583583 Active Yolande Lindsay MD PhD Active CALCIUM 600+D PLUS MINERALS 600-400 MG-UNIT ORAL CHEW 1 tab by mouth daily CALCIUM CARBONATE-VIT D-MIN 26397896815 No Longer Active Yolande Lindsay MD PhD Active CYCLOBENZAPRINE HCL 10 MG TABS 1 tablet by mouth three times daily as needed for muscle spasm/pain CYCLOBENZAPRINE HCL 38833217290 Active Yolande Lindsay MD PhD Active ONDANSETRON 4 MG TBDP 1 q4h PRN nausea ONDANSETRON 99341391911 Active Yolande Lindsay MD PhD Active ADULT ASPIRIN EC LOW STRENGTH 81 MG TBEC Take 1 tablet by mouth daily 2014 ASPIRIN 07090887167 No Longer Active Yolande Lindsay MD PhD Active ZOFRAN ODT 4 MG TBDP 1 pill dissolved by mouth every 4 hours if needed for nausea ONDANSETRON 67660878330 No Longer Active Yolande Lindsay MD PhD Active CEFTIN 500 MG TAB 1 twice a day CEFUROXIME AXETIL 48992558805 No Longer Active Yolande Lindsay MD PhD Active ALBUTEROL SULFATE 0.083 % NEBU SOLN one vial per nebulizer every 4-6 hours as needed ALBUTEROL SULFATE 32169443010 No Longer Active Alexis Ordaz MD Active DOXYCYCLINE HYCLATE 100 MG CAP 1 cap by mouth twice daily DOXYCYCLINE HYCLATE 48802818207 No Longer Active Yolande Lindsay MD PhD Active CYCLOBENZAPRINE HCL 10 MG TABS 1/2 - 1 tab by mouth three times daily if needed for spasms/pain CYCLOBENZAPRINE HCL 69457945425 No Longer Active Yolande Lindsay MD PhD Active TRILEPTAL 600 MG TABS Take one 1/2 tablet in Am and 1 tablet at night OXCARBAZEPINE 70807806616 Active Yolande Lindsay MD PhD Active AZITHROMYCIN 250 MG TABS 2 pills on day 1, then 1 pill daily x 4 days AZITHROMYCIN 21402269197 No Longer Active Yolande Lindsay MD PhD Active XOPENEX 1.25 MG/3ML NEBU 1 neb every 4 hours if needed for cough/congestion LEVALBUTEROL HCL 04665649356 No Longer Active Yolande Lindsay MD PhD Active DOXYCYCLINE HYCLATE 100 MG TAB 1 tab twice a day for 14 days 2013 DOXYCYCLINE HYCLATE 12671749129 No Longer Active Yolande Lindsay MD PhD Active LEVOTHYROXINE SODIUM 75 MCG TABS Take 1 tab daily LEVOTHYROXINE SODIUM 29398389865 Active Yolande Lindsay MD PhD Active PREVACID 30 MG CPDR Take 1 tablet by mouth daily-PRN LANSOPRAZOLE 32915387578 No Longer Active Yolande Lindsay MD PhD Active PA VITAMIN D-3 2000 UNIT CAPS 1 CAP PO DAILY CHOLECALCIFEROL 09227846776 No Longer Active Yolande Lindsay MD PhD Active CEFDINIR 300 MG CAPS by mouth twice a day CEFDINIR 87856236866 No Longer Active Gab Padron MD Active TOPAMAX 50 MG TABS 1 PO twice daily TOPIRAMATE 59768332084 Active Yolande Lindsay MD PhD Active AZITHROMYCIN 250 MG TABS 2 po qd x 1 day, then 1 po qd x 4 days AZITHROMYCIN 78909703886 No Longer Active Yolande Lindsay MD PhD Active DICLOFENAC SODIUM 75 MG TBEC 1 tablet by q 12 hours PRN headaches DICLOFENAC SODIUM 20534137737 No Longer Active Yolande Lindsay MD PhD Active FLONASE 50 MCG/ACT SUSP 1 spray each nostril am and hs FLUTICASONE PROPIONATE 72182956591 No Longer Active Todd Callaway MD Active ANUSOL-HC 25 MG SUPPOSITORY 1 rectally twice a day as needed for hemorrhoids HYDROCORTISONE JAYDEN (RECTAL) 35729609204 No Longer Active Yolande Lindsay MD PhD Active ANUSOL-HC 25 MG SUPPOSITORY 1 suppository rectally each evening as needed for anal fissure HYDROCORTISONE JAYDEN (RECTAL) 96156985852 No Longer Active LONNIE Iglesias Active VALIUM 5 MG TAB 1 po 30 minutes prior to your MRI DIAZEPAM 18725649555 No Longer Active LONNIE Iglesias Active METHOCARBAMOL 750 MG TABS 1 PO QID PRN METHOCARBAMOL 20411309578 No Longer Active Daphne Wetzel APRN Active NITROSTAT 0.4 MG SUBL as directed NITROGLYCERIN 84098563307 No Longer Active Rodrigo Sarah APRN Active ROBAXIN-750 750 MG TABS 2 four times a day for 3 days as needed for muscle spasm, then 1 four times a day as needed METHOCARBAMOL 97699400145 No Longer Active Rodrigo Sarah APRN Active HYDROCODONE-ACETAMINOPHEN 5-325 MG TABS 1 q 4-6 hrs prn HYDROCODONE-ACETAMINOPHEN 93695484174 No Longer Active Silvestrellnacho Sarah APRN Active VERAPAMIL HCL CR 180 MG CR-TABS TAKE 1 TAB DAILY VERAPAMIL HCL 12335045160 No Longer Active Yolande Lindsay MD PhD Active BACTRIM DS 800-160 MG TAB 1 tab by mouth twice daily TRIMETHOPRIM-SULFAMETHOXAZOLE 45344753948 No Longer Active Yolande Lindsay MD PhD Active NEXIUM 40 MG PACK 1 by mouth daily ESOMEPRAZOLE MAGNESIUM 87432236974 No Longer Active Des Hines MD Active EPIPEN 2-CHARLETTE 0.3 MG/0.3ML OMARI as need for allergic reaction EPINEPHRINE 59049849465 Active Yolande Lindsay MD PhD Active NEXIUM 40 MG CPDR 1 PO Q D DAY ESOMEPRAZOLE MAGNESIUM 76006932942 No Longer Active Sadia Perry RN Active NEXIUM 40 MG PACK 1 by mouth daily NEXIUM 40 MG PACK ESOMEPRAZOLE MAGNESIUM Inactive VERAPAMIL HCL CR 180 MG CR-TABS TAKE 1 TAB DAILY VERAPAMIL HCL CR 180 MG CR-TABS VERAPAMIL HCL Inactive HYDROCODONE-ACETAMINOPHEN 5-325 MG TABS 1 q 4-6 hrs prn HYDROCODONE-ACETAMINOPHEN 5-325 MG TABS 449501 HYDROCODONE-ACETAMINOPHEN Inactive ROBAXIN-750 750 MG TABS 2 four times a day for 3 days as needed for muscle spasm, then 1 four times a day as needed ROBAXIN-750 750 MG TABS 226033 METHOCARBAMOL Inactive NITROSTAT 0.4 MG SUBL as directed NITROSTAT 0.4 MG SUBL NITROGLYCERIN Inactive METHOCARBAMOL 750 MG TABS 1 PO QID PRN METHOCARBAMOL 750 MG TABS 644911 METHOCARBAMOL Inactive VALIUM 5 MG TAB 1 po 30 minutes prior to your MRI VALIUM 5 MG TAB 106160 DIAZEPAM Inactive ANUSOL-HC 25 MG SUPPOSITORY 1 suppository rectally each evening as needed for anal fissure ANUSOL-HC 25 MG SUPPOSITORY 1158371 HYDROCORTISONE JAYDEN (RECTAL) Inactive ANUSOL-HC 25 MG SUPPOSITORY 1 rectally twice a day as needed for hemorrhoids ANUSOL-HC 25 MG SUPPOSITORY 0429701 HYDROCORTISONE JAYDEN (RECTAL) Inactive FLONASE 50 MCG/ACT SUSP 1 spray each nostril am and hs FLONASE 50 MCG/ACT SUSP FLUTICASONE PROPIONATE Inactive DICLOFENAC SODIUM 75 MG TBEC 1 tablet by q 12 hours PRN headaches DICLOFENAC SODIUM 75 MG TBEC 267795 DICLOFENAC SODIUM Inactive PA VITAMIN D-3 2000 UNIT CAPS 1 CAP PO DAILY PA VITAMIN D-3 2000 UNIT CAPS CHOLECALCIFEROL Inactive PREVACID 30 MG CPDR Take 1 tablet by mouth daily-PRN PREVACID 30 MG CPDR 266379 LANSOPRAZOLE Inactive DOXYCYCLINE HYCLATE 100 MG TAB 1 tab twice a day for 14 days 2013 DOXYCYCLINE HYCLATE 100 MG TAB 2868258 DOXYCYCLINE HYCLATE Inactive XOPENEX 1.25 MG/3ML NEBU 1 neb every 4 hours if needed for cough/congestion XOPENEX 1.25 MG/3ML NEBU 070431 LEVALBUTEROL HCL Inactive CYCLOBENZAPRINE HCL 10 MG TABS 1/2 - 1 tab by mouth three times daily if needed for spasms/pain CYCLOBENZAPRINE HCL 10 MG TABS 330959 CYCLOBENZAPRINE HCL Inactive ALBUTEROL SULFATE 0.083 % NEBU SOLN one vial per nebulizer every 4-6 hours as needed ALBUTEROL SULFATE 0.083 % NEBU SOLN 868746 ALBUTEROL SULFATE Inactive CEFTIN 500 MG TAB 1 twice a day CEFTIN 500 MG TAB 419195 CEFUROXIME AXETIL Inactive ZOFRAN ODT 4 MG TBDP 1 pill dissolved by mouth every 4 hours if needed for nausea ZOFRAN ODT 4 MG TBDP 372231 ONDANSETRON Inactive ADULT ASPIRIN EC LOW STRENGTH 81 MG TBEC Take 1 tablet by mouth daily 2014 ADULT ASPIRIN EC LOW STRENGTH 81 MG TBEC 446476 ASPIRIN Inactive CALCIUM 600+D PLUS MINERALS 600-400 [...] or an apple NIACIN 500 MG TABS 058230 NIACIN Inactive NIASPAN 500 MG ORAL CR-TABS 1 pill nightly x 1 week, then 2 pills nightly x 1 week, then 3 pills nightly x 1 week, then 4 pills nightly NIASPAN 500 MG ORAL CR-TABS NIACIN (ANTIHYPERLIPIDEMIC) Inactive OXYCODONE HCL 5 MG ORAL CAPS 1 TAB PO Q HS OXYCODONE HCL 5 MG ORAL CAPS 3773686 OXYCODONE HCL Inactive BACTRIM DS 800-160 MG TAB 1 tab by mouth twice daily BACTRIM DS 800-160 MG TAB 782039 TRIMETHOPRIM-SULFAMETHOXAZOLE Inactive AZITHROMYCIN 250 MG TABS 2 po qd x 1 day, then 1 po qd x 4 days AZITHROMYCIN 250 MG TABS 5562806 AZITHROMYCIN Inactive CEFDINIR 300 MG CAPS by mouth twice a day CEFDINIR 300 MG CAPS 524983 CEFDINIR Inactive AZITHROMYCIN 250 MG TABS 2 pills on day 1, then 1 pill daily x 4 days AZITHROMYCIN 250 MG TABS 4405359 AZITHROMYCIN Inactive DOXYCYCLINE HYCLATE 100 MG CAP 1 cap by mouth twice daily DOXYCYCLINE HYCLATE 100 MG CAP 4672284 DOXYCYCLINE HYCLATE Inactive FUROSEMIDE 20 MG TABS 1 pill by mouth daily, for edema FUROSEMIDE 20 MG TABS 374290 FUROSEMIDE Inactive AZITHROMYCIN 250 MG TABS 2 po qd x 1 day, then 1 po qd x 4 days AZITHROMYCIN 250 MG TABS 9828169 AZITHROMYCIN Inactive Immunizations Vaccine Administration Date Value Standard Description Seasonal influenza vaccine, injectable, containing preservative, for > 3 years old (Afluria, FluLaval, Fluzone, Fluvirin, Fluarix, Agriflu(>=18 yo)) Fluzone (>3 yrs.) [GWO251] Influenza, seasonal, injectable influenza immunization (Flu Vax) has been administered Influenza - Unspecified Formulation [CVX88] influenza virus vaccine, unspecified formulation pneumococcal immunization administered Pneumovax 23 [CVX33] pneumococcal polysaccharide vaccine, 23 valent Seasonal influenza vaccine, injectable, containing preservative, for > 3 years old (Afluria, FluLaval, Fluzone, Fluvirin, Fluarix, Agriflu(>=18 yo)) Fluzone (>3 yrs.) [VOS527] Influenza, seasonal, injectable dT (Diphtheria and Tetanus) booster given given Td(adult) unspecified formulation Boostrix (Tetanus toxoid, reduced diphtheria toxoid and acellular pertussis vaccine, adsorbed), booster Boostrix [CDE655] tetanus toxoid, reduced diphtheria toxoid, and acellular pertussis vaccine, adsorbed Vital Signs Date Name Value Unit Range Description blood pressure, diastolic - 8462-4 82 mm[Hg] [...] E&M - 3141-9 231 [lb_av] Weight Measured Diagnostic Results Date Name [...] Panel - Chemistry sodium, serum 145 mmol/L 299-976 8791/06/22 potassium, serum 3.9 mmol/L 3.5-5.2 chloride, serum 109 mmol/L 98-107 carbon dioxide, venous blood 23.4 mmol/L 21.0-32.0 blood glucose 92 mg/dL 65-110 calcium, serum 8.2 mg/dL 8.5-10.1 urea nitrogen, blood 24 mg/dL 7-18 creatinine, serum 1.30 mg/dL 0.60-1.30 Lab Report: [facility] Advanced Lipid and Inlammation Panel /14253 - Chemistry cholesterol, serum 148 mg/dL 517-407 4610/09/02 HDL cholesterol, serum 55 mg/dL > OR=46 triglyceride, serum, fasting 67 mg/dL LDL cholesterol, serum 80 mg/dL cholesterol/HDL ratio, serum 2.7 calc < OR=5.0 cholesterol, serum 198 mg/dL 863-274 1725/04/30 HDL cholesterol, serum 65 mg/dL > OR=46 triglyceride, serum, fasting 82 mg/dL LDL cholesterol, serum 117 mg/dL cholesterol/HDL ratio, serum 3.0 calc < OR=5.0 Lab Report: CBC W/DIFF, Basic Metabolic Panel - Chemistry sodium, serum 144 mmol/L 953-256 3180/01/21 potassium, serum 4.2 mmol/L 3.5-5.2 chloride, serum [...] count 189 10^3/MM^3 10*3/mm3 142-424 Lab Report: CBC, Comp. Metabolic Panel, Thyroid Stimulating Hormone (L) - Chemistry sodium, serum 145 mmol/L 801-691 1061/09/02 potassium, serum 4.6 mmol/L 3.5-5.2 chloride, serum [...] 51 mg/dL 30-200 cholesterol, serum 173 mg/dL 512-188 3781/04/28 HDL cholesterol, serum 63 mg/dL 32-96 LDL [...] - Toxicology rapid flu test Negative Negative;Positive Office Visit: GET EST - Chemistry cholesterol, target level 200 mg/dL LDL target level 100 mg/dL HDL cholesterol, serum, target level 40 mg/dL triglyceride, target level 150 mg/dL Encounters Code Encounter Date Provider Facility CPT-79524 Level 4 Est. Patient 22:24:31 IMPROVEMENT AUDITOR Gab Padron MD [facility] CPT-80541 Level 3 Est. Patient 18:33:46 IMPROVEMENT AUDITOR Gab Padron MD [facility] CPT-66213 Level 3 Est. Patient 16:19:11 CDT Yolande Lindsay MD PhD [facility] CPT-09594 Level 3 Est. Patient 18:59:14 CDT Yolande Lindsay MD [facility] CPT-85842 Level 4 Est. Patient 21:29:26 CDT Yolande Lindsay MD [facility]-54916 Level 3 Est. Patient 07:37:45 CDT Yolande Lindsay MD [facility]-89054 Level 3 Est. Patient 17:03:46 CDT Yolande Lindsay MD [facility]-40036 Level 4 Est. Patient 20:02:13 IMPROVEMENT AUDITOR Yolande Lindsay MD [facility]-83553 Level 3 Est. Patient 16:02:07 IMPROVEMENT AUDITOR Alexis Ordaz MD [facility]-73670 Level 3 Est. Patient 12:41:24 IMPROVEMENT AUDITOR Yolande Lindsay MD [facility]-17088 Level 3 Est. Patient 15:41:20 IMPROVEMENT AUDITOR Yolande Lindsay MD [facility] CPT-66215 Level 3 Est. Patient 13:20:02 IMPROVEMENT AUDITOR Yolande Lindsay MD [facility]-61609 Level 3 Est. Patient 15:00:38 CDT Jared Og MD [facility]-15083 Level 3 Est. Patient 10:22:32 CDT Yolande Lindsay MD [facility] CPT-78040 Level 3 Est. Patient 17:12:58 CDT Yolande Lindsay MD [facility] CPT-74085 Level 4 Est. Patient 13:30:58 CDT Yolande Lnidsay MD [facility]-76991 Level 4 New Patient 09:02:42 CDT Jared Og MD [facility]-96556 Level 3 Est. Patient 08:19:07 CDT Yolande Lindsay MD [facility]-46595 Level 3 Est. Patient 12:00:13 IMPROVEMENT AUDITOR Gab Padron MD [facility]-27258 Level 3 Est. Patient 16:15:23 IMPROVEMENT AUDITOR Yolande Lindsay MD [facility] [place]16214 Level 2 Est. Patient 19:47:15 CDT Yolande Lindsay MD [facility]-93925 Level 3 Est. Patient 21:38:31 CDT Yolande Lindsay MD [facility] [place]69666 Level 3 Est. Patient 10:25:12 CDT Adiel PERAZA [facility]-82070 Level 4 Est. Patient 10:51:58 CDT Yolande Lindsay MD [facility]-76222 Level 3 Est. Patient 14:04:55 IMPROVEMENT AUDITOR Rodrigo Sarah [facility]-21963 Level 3 Est. Patient 10:46:35 IMPROVEMENT AUDITOR Rodrigo Sarah [facility]-98749 Level 3 Est. Patient 14:24:37 IMPROVEMENT AUDITOR Yolande Lindsay MD [facility]-39574 Level 3 Est. Patient 17:41:58 IMPROVEMENT AUDITOR Yolande Lindsay MD [facility]-59929 Level 2 Est. Patient 22:01:41 IMPROVEMENT AUDITOR Rodrigo Sarah [facility]-23238 Level 2 Est. Patient 22:01:11 IMPROVEMENT AUDITOR Rodrigo Sarah [facility]-14902 Level 3 Est. Patient 10:12:29 IMPROVEMENT AUDITOR Rodrigo Sarah [facility]-64556 Level 3 Est. Patient 11:05:44 CDT Alexis Ordaz MD [facility]-39275 Level 3 Est. Patient 14:57:20 CDT Yolande Lindsay MD [facility] CPT-80798 Level 3 Est. Patient 14:40:57 CDT Yolande Lindsay MD [facility] CPT-21986 Level 3 Est. Patient 20:55:40 CDT Yolande Lindsay MD [facility] CPT-92709 Level 3 Est. Patient 12:42:38 IMPROVEMENT AUDITOR Yolande Lindsay MD [facility] CPT-80736 Level 3 Est. Patient 11:54:49 IMPROVEMENT AUDITOR Des Hines MD [facility] CPT-60917 Level 3 Est. Patient 17:06:38 CDT Dewayne PERAZA [facility] Procedures Code Procedure Name Date Entry Date Standard Description [id number] Event Monitor - MC Transmission 09:12:32 CDT 08/06 [id number] Event Monitor - MC review and interp 09:12:32 CDT [id number] Event Monitor - MC recording 09:12:32 CDT CPT-01815 EKG Trac and Interp 16:50:22 CDT CPT-J1030 Depo Medrol 40 mg (Methyl Prednisolone Acetate) 17:05: 54 CDT CPT-J1100 Decadron 4mg (Dexamethasone) 17:05:54 CDT CPT-93887 Abx/Therapy Injection 17:05:54 CDT CPT-J1100 Decadron 4mg (Dexamethasone) 16:55:28 CDT CPT-J1030 Depo Medrol 40 mg (Methyl Prednisolone Acetate) 16:55: 28 CDT CPT-76913 Ankle Complete - Min 3V 15:58:50 CDT CPT-89805 Knee 3V 15:58:50 CDT CPT-02755 Hip comp min 2V 15:58:50 CDT CPT-J2270 Morphine Sulfate 10 mg 14:25:44 IMPROVEMENT AUDITOR CPT-J2550 Phenergan 12.5 mg (Promethazine) 14:25:44 IMPROVEMENT AUDITOR CPT-19026 Abx/Therapy Injection 14:25:44 IMPROVEMENT AUDITOR CPT-J2550 Phenergan 12.5 mg (Promethazine) 14:08:03 IMPROVEMENT AUDITOR CPT-J2270 Morphine Sulfate 10 mg 14:08:03 IMPROVEMENT AUDITOR CPT-16465 Bladder Scan 15:00:38 CDT CPT-TCMM Transitional Care Mgmt-Moderate 09:52:22 CDT CPT-J1030 Depo Medrol 40 mg (Methyl Prednisolone Acetate) 10:55: 18 CDT CPT-J1100 Decadron 4mg (Dexamethasone) 10:55:18 CDT CPT-63827 Abx/Therapy Injection 10:55:18 CDT CPT-J1030 Depo Medrol 40 mg (Methyl Prednisolone Acetate) 10:22: 32 CDT CPT-J1100 Decadron 4mg (Dexamethasone) 10:22:32 CDT CPT-41535 Postop F/U Visit 14:37:13 CDT CPT-70107 Ankle Complete - Min 3V 17:11:58 CDT CPT-58311 Foot comp min 3V 17:11:58 CDT CPT-28004 Bladder Scan 09:56:58 CDT CPT-98846 Postop F/U Visit 09:56:58 CDT CPT-66277 Cystoscopy 09:02:42 CDT CPT-56615 Bladder Scan 09:02:42 CDT CPT-18750 Abd single AP View 16:00:35 CDT CPT-27983 Administration single or combination vaccine inc oral 10 :15:43 CDT CPT-59380 Influenza split virus > age 3 10:15:43 CDT CPT-51848 Nail Avulsion 09:24:57 CDT CPT-OV Office Visit 11:15:41 CDT CPT-32382 Abx/Therapy Injection 10:51:30 CDT CPT-J3301 Kenalog 40 mg (Triamcinolone Acetonide) 10:25:12 CDT CPT-J1100 Decadron 4mg (Dexamethasone) 10:25:12 CDT CPT-90024 Anoscopy diagnostic 10:36:12 CDT CPT-OV Office Visit 15:34:31 CDT CPT-00312 Abx/Therapy Injection 08:21:15 IMPROVEMENT AUDITOR CPT-J1885 Toradol 60 mg (Ketorolac) 10:46:35 IMPROVEMENT AUDITOR CPT-OV Office Visit 19:51:16 IMPROVEMENT AUDITOR CPT-58362 Spec Collection and Handling Fee 14:34:18 IMPROVEMENT AUDITOR CPT-PV Prev. Care Visit 14:19:18 IMPROVEMENT AUDITOR CPT-37247 Postop F/U Visit 14:47:51 IMPROVEMENT AUDITOR CPT-46414 Postop F/U Visit 15:15:14 IMPROVEMENT AUDITOR CPT-58113 Postop F/U Visit 14:41:43 CDT CPT-12612 Postop F/U Visit 15:47:46 CDT CPT-OV Office Visit 15:27:23 CDT CPT-OV Office Visit 17:20:34 CDT CPT-56291 Abx/Therapy Injection 15:05:57 CDT CPT-J1100 Decadron 8mg (Dexamethasone) 14:44:57 CDT CPT-J1040 Depo Medrol 80 mg (Methyl Prednisolone Acetate) 14:44: 57 CDT CPT-JTINJ Joint Injection 10:17:37 CDT CPT-73795 Administration 2+ single or combination vaccines inc oral 13:01:46 IMPROVEMENT AUDITOR CPT-64270 Administration single or combination vaccine inc oral 13 :01:46 IMPROVEMENT AUDITOR CPT-49251 Pneumovax 13:01:46 IMPROVEMENT AUDITOR CPT-86808 Influenza split virus > age 3 13:01:46 IMPROVEMENT AUDITOR CPT-19850 Administration single or combination vaccine inc oral 08 :56:49 CDT CPT-81248 Tdap 08:56:49 CDT
--- OUTSIDE RECORDS SUMMARY | 2017-03-21 20:20 | XMS REPORT | Clinical Summary ---
Author Author Admin, MARGRET Organization [employer] Address Unknown Phone Unavailable Allergies, Adverse Reactions, Alerts Allergy Name Reaction Description Start Date Severity Status Provider VALENTIN Critical Active Rodrigo Montemayorl CARE ADMINISTRATIVE TECH CHLORHEXIDINE GLUCONATE tongue and gums swollen Critical Active Hoa Kabaford RMA NORFLEX Rash Critical Active Silvestrellina Frazell CARE ADMINISTRATIVE TECH TRAZODONE HCL sees things Critical Active [...] Other urinary incontinence Rectocele 618.04 Active Jared gO MD Rectocele Hematuria 599.70 Resolved Yolande Lindsay [...] hx of 412 Active Hoa Otto [facility] Old myocardial infarction Pelvic pain 789.09 Resolved [...] and thigh Renal carcinoma 189.0 Active Erum Sykes Malignant neoplasm of kidney, except pelvis Poison [...] daily for 2 days end 02/05/17 PREDNISONE 96076742169 Active Gab Padron MD Active ZANTAC 150 MG TAB 1 by mouth twice daily RANITIDINE HCL 65427445884 Active Gab Padron MD Active TRIAMCINOLONE ACETONIDE 0.1 % CREA Apply to affected area 3 times daily for up to 2 weeks TRIAMCINOLONE ACETONIDE 46975066282 Active Tisha Lambert APRN Active LISINOPRIL 40 MG TABS 1 tablet by mouth daily LISINOPRIL 54082644838 Active Tisha Lambert APRN Active IBUPROFEN 600 MG TAB 1 tablet by mouth every 6 hours for 7 days, then 1 tablet every 6 hours as needed. Take with food IBUPROFEN 76266455624 No Longer Active Tisha Lambert APRN Active PREDNISONE 20 MG TAB 1 tab twice daily for 3 day, then one daily for three days PREDNISONE 47393231116 No Longer Active Tisha Lambert APRN Active TRIAMCINOLONE ACETONIDE 0.1 % CREA apply bid sparingly to rash TRIAMCINOLONE ACETONIDE 37830311102 No Longer Active Gab Padron MD Active TRAMADOL HCL 50 MG TABS 1 tab po every 6 hrs prn pain TRAMADOL HCL 72708126783 No Longer Active Gab Padron MD Active BACTRIM DS 800-160 MG TAB 1 tab by mouth twice daily TRIMETHOPRIM-SULFAMETHOXAZOLE 20988484420 No Longer Active Tisha Lambert APRN Active ADVAIR DISKUS 250-50 MCG/DOSE AEPB 1 puff BID FLUTICASONE-SALMETEROL 91162287136 No Longer Active Todd Callaway MD Active ONDANSETRON 4 MG TBDP 1 q4h PRN nausea ONDANSETRON 81733379427 No Longer Active LONNIE Iglesias Active FISH OIL 1000 MG CAPS 3 pills daily OMEGA-3 FATTY ACIDS 66472160941 No Longer Active LONNIE Iglesias Active CETIRIZINE HCL 10 MG ORAL TABS 1 po qd PRN Allergies CETIRIZINE HCL 09922198149 Active Gab Padron MD Active CLARITIN 10 MG TAB 1 tablet by mouth daily as needed for allergies LORATADINE 77359137698 No Longer Active Gab Padron MD Active PREDNISONE 20 MG TAB take 3 tabs daily for 3 days, 2 tabs daily for 3 days, 1 tab daily for 3 days, 1/2 tab daily for 3 days PREDNISONE 65959643458 No Longer Active Tisha Lambert APRN Active PREDNISONE 20 MG TAB 2 tabs daily for 3 days, 1 tab daily for 3 days, 1/2 tab daily for 2 days PREDNISONE 92786966871 No Longer Active Gab Padron MD Active ZOFRAN ODT 4 MG TBDP 1 po q6hr PRN Nausea ONDANSETRON 64163316419 Active Gab Padron MD Active BACTRIM DS 800-160 MG TAB 1 tab by mouth twice daily TRIMETHOPRIM-SULFAMETHOXAZOLE 87824746617 No Longer Active Gab Padron MD Active LEVOTHYROXINE SODIUM 75 MCG TABS Take 1 tab daily LEVOTHYROXINE SODIUM 52181038377 No Longer Active Mariana HICKEYA Active SYNTHROID 88 MCG ORAL TABS Take one by mouth daily LEVOTHYROXINE SODIUM 53859656864 Active Tisha Lambert APRN Active CHERATUSSIN AC 100-10 MG/5ML SYRP 1 tsp by mouth every 4 hours as needed for cough GUAIFENESIN-CODEINE 77828819290 No Longer Active Gab Padron MD Active POLYTRIM 85127-6.1 UNIT/ML-% SOLN 1 gtt to affected eye q3h x 7 days POLYMYXIN B-TRIMETHOPRIM 00374311515 No Longer Active Gab Padron MD Active FLUTICASONE PROPIONATE 50 MCG/ACT SUSP 1 to 2 sprays each nostril daily 04/21 FLUTICASONE PROPIONATE 08684396661 No Longer Active Gab Padron MD Active TRILEPTAL 600 MG TABS Take one 1 tablet in Am and 1 tablet at night OXCARBAZEPINE 33980470526 Active Gab Padron MD Active CEFDINIR 300 MG CAPS 1 po BID x 10 days CEFDINIR 27778982915 No Longer Active Rodrigo Sarah APRN Active CEFTIN 500 MG TAB 1 twice a day CEFUROXIME AXETIL 69016787256 No Longer Active Gab Padron MD Active AZITHROMYCIN 250 MG TABS 2 po qd x 1 day, then 1 po qd x 4 days AZITHROMYCIN 32365914643 No Longer Active Rodrigo Sarah APRN Active OXYCODONE HCL 5 MG ORAL CAPS 1 TAB PO Q HS OXYCODONE HCL 81930723172 No Longer Active Rodrigo Sarah APRN Active NIASPAN 500 MG ORAL CR-TABS 1 pill nightly x 1 week, then 2 pills nightly x 1 week, then 3 pills nightly x 1 week, then 4 pills nightly NIACIN (ANTIHYPERLIPIDEMIC) 91156418809 No Longer Active Rodrigo Sarah APRN Active NIACIN 500 MG TABS 1 pill by mouth nightly x 1 week, then 2 pills x 1 week, then 3 pills x 1 week, then 4 pills nightly - take after evening meal, with applesauce or an apple NIACIN 05195772840 No Longer Active Yolande Lindsay MD PhD Active FUROSEMIDE 20 MG TAB 1 tablet by mouth daily FUROSEMIDE 48131480167 Active Gab Padron MD Active FUROSEMIDE 20 MG TABS 1 pill by mouth daily, for edema FUROSEMIDE 20496242483 No Longer Active Yolande Lindsay MD PhD Active ATORVASTATIN CALCIUM 10 MG TABS 1 pill by mouth daily, for cholesterol 09/06 ATORVASTATIN CALCIUM 55244045749 Active Gab Padron MD Active CALCIUM 600+D PLUS MINERALS 600-400 MG-UNIT ORAL CHEW 1 tab by mouth daily CALCIUM CARBONATE-VIT D-MIN 16546654542 No Longer Active Yolande Lindsay MD PhD Active CYCLOBENZAPRINE HCL 10 MG TABS 1 tablet by mouth three times daily as needed for muscle spasm/pain CYCLOBENZAPRINE HCL 00638681159 Active Yolande Lindsay MD PhD Active ADULT ASPIRIN EC LOW STRENGTH 81 MG TBEC Take 1 tablet by mouth daily 2014 ASPIRIN 07043063275 No Longer Active Yolande Lindsay MD PhD Active ZOFRAN ODT 4 MG TBDP 1 pill dissolved by mouth every 4 hours if needed for nausea ONDANSETRON 75737080588 No Longer Active Yolande Lindsay MD PhD Active CEFTIN 500 MG TAB 1 twice a day CEFUROXIME AXETIL 02866183527 No Longer Active Yolande Lindsay MD PhD Active ALBUTEROL SULFATE 0.083 % NEBU SOLN one vial per nebulizer every 4-6 hours as needed ALBUTEROL SULFATE 80303137076 No Longer Active Alexis Ordaz MD Active DOXYCYCLINE HYCLATE 100 MG CAP 1 cap by mouth twice daily DOXYCYCLINE HYCLATE 91966754212 No Longer Active Yolande Lindsay MD PhD Active CYCLOBENZAPRINE HCL 10 MG TABS 1/2 - 1 tab by mouth three times daily if needed for spasms/pain CYCLOBENZAPRINE HCL 64264322500 No Longer Active Yolande Lindsay MD PhD Active AZITHROMYCIN 250 MG TABS 2 pills on day 1, then 1 pill daily x 4 days AZITHROMYCIN 87811666018 No Longer Active Yolande Lindsay MD PhD Active XOPENEX 1.25 MG/3ML NEBU 1 neb every 4 hours if needed for cough/congestion LEVALBUTEROL HCL 88612078627 No Longer Active Yolande Lindsay MD PhD Active DOXYCYCLINE HYCLATE 100 MG TAB 1 tab twice a day for 14 days 2013 DOXYCYCLINE HYCLATE 57402195846 No Longer Active Yolande Lindsay MD PhD Active PREVACID 30 MG CPDR Take 1 tablet by mouth daily-PRN LANSOPRAZOLE 64433650349 No Longer Active Yolande Lindsay MD PhD Active PA VITAMIN D-3 2000 UNIT CAPS 1 CAP PO DAILY CHOLECALCIFEROL 38199115418 No Longer Active Yolande Lindsay MD PhD Active CEFDINIR 300 MG CAPS by mouth twice a day CEFDINIR 62207180748 No Longer Active Gab Padron MD Active TOPAMAX 50 MG TABS 1 PO twice daily TOPIRAMATE 52432655032 Active Yolande Lindsay MD PhD Active AZITHROMYCIN 250 MG TABS 2 po qd x 1 day, then 1 po qd x 4 days AZITHROMYCIN 23476039128 No Longer Active Yolande Lindsay MD PhD Active DICLOFENAC SODIUM 75 MG TBEC 1 tablet by q 12 hours PRN headaches DICLOFENAC SODIUM 72708608907 No Longer Active Yolande Lindsay MD PhD Active FLONASE 50 MCG/ACT SUSP 1 spray each nostril am and hs FLUTICASONE PROPIONATE 87407102382 No Longer Active Todd Callaway MD Active ANUSOL-HC 25 MG SUPPOSITORY 1 rectally twice a day as needed for hemorrhoids HYDROCORTISONE JAYDEN (RECTAL) 90685112548 No Longer Active Yolande Lindsay MD PhD Active ANUSOL-HC 25 MG SUPPOSITORY 1 suppository rectally each evening as needed for anal fissure HYDROCORTISONE JAYDEN (RECTAL) 41400249137 No Longer Active LONNIE Iglesias Active VALIUM 5 MG TAB 1 po 30 minutes prior to your MRI DIAZEPAM 59484719587 No Longer Active LONNIE Iglesias Active METHOCARBAMOL 750 MG TABS 1 PO QID PRN METHOCARBAMOL 92834987214 No Longer Active Daphne Wetzel APRN Active NITROSTAT 0.4 MG SUBL as directed NITROGLYCERIN 37418907159 No Longer Active Rodrigo Sarah APRN Active ROBAXIN-750 750 MG TABS 2 four times a day for 3 days as needed for muscle spasm, then 1 four times a day as needed METHOCARBAMOL 10519045508 No Longer Active Rodrigo Sarah APRN Active HYDROCODONE-ACETAMINOPHEN 5-325 MG TABS 1 q 4-6 hrs prn HYDROCODONE-ACETAMINOPHEN 17218991797 No Longer Active Silvestrellnacho Sarah APRN Active VERAPAMIL HCL CR 180 MG CR-TABS TAKE 1 TAB DAILY VERAPAMIL HCL 69781537604 No Longer Active Yolande Lindsay MD PhD Active BACTRIM DS 800-160 MG TAB 1 tab by mouth twice daily TRIMETHOPRIM-SULFAMETHOXAZOLE 06578696303 No Longer Active Yolande Lindsay MD PhD Active NEXIUM 40 MG PACK 1 by mouth daily ESOMEPRAZOLE MAGNESIUM 12805427243 No Longer Active Des Hines MD Active EPIPEN 2-CHARLETTE 0.3 MG/0.3ML OMARI as need for allergic reaction EPINEPHRINE 37142789669 Active Yolande Lindsay MD PhD Active NEXIUM 40 MG CPDR 1 PO Q D DAY ESOMEPRAZOLE MAGNESIUM 22611287645 No Longer Active Sadia Perry RN Active NEXIUM 40 MG PACK 1 by mouth daily NEXIUM 40 MG PACK ESOMEPRAZOLE MAGNESIUM Inactive VERAPAMIL HCL CR 180 MG CR-TABS TAKE 1 TAB DAILY VERAPAMIL HCL CR 180 MG CR-TABS VERAPAMIL HCL Inactive HYDROCODONE-ACETAMINOPHEN 5-325 MG TABS 1 q 4-6 hrs prn HYDROCODONE-ACETAMINOPHEN 5-325 MG TABS 713804 HYDROCODONE-ACETAMINOPHEN Inactive ROBAXIN-750 750 MG TABS 2 four times a day for 3 days as needed for muscle spasm, then 1 four times a day as needed ROBAXIN-750 750 MG TABS 709579 METHOCARBAMOL Inactive NITROSTAT 0.4 MG SUBL as directed NITROSTAT 0.4 MG SUBL 271287 NITROGLYCERIN Inactive METHOCARBAMOL 750 MG TABS 1 PO QID PRN METHOCARBAMOL 750 MG TABS 631335 METHOCARBAMOL Inactive VALIUM 5 MG TAB 1 po 30 minutes prior to your MRI VALIUM 5 MG TAB 171488 DIAZEPAM Inactive ANUSOL-HC 25 MG SUPPOSITORY 1 suppository rectally each evening as needed for anal fissure ANUSOL-HC 25 MG SUPPOSITORY 4772562 HYDROCORTISONE JAYDEN (RECTAL) Inactive ANUSOL-HC 25 MG SUPPOSITORY 1 rectally twice a day as needed for hemorrhoids ANUSOL-HC 25 MG SUPPOSITORY 0858926 HYDROCORTISONE JAYDEN (RECTAL) Inactive FLONASE 50 MCG/ACT SUSP 1 spray each nostril am and hs FLONASE 50 MCG/ACT SUSP 2409956 FLUTICASONE PROPIONATE Inactive DICLOFENAC SODIUM 75 MG TBEC 1 tablet by q 12 hours PRN headaches DICLOFENAC SODIUM 75 MG TBEC 534054 DICLOFENAC SODIUM Inactive PA VITAMIN D-3 2000 UNIT CAPS 1 CAP PO DAILY PA VITAMIN D-3 2000 UNIT CAPS CHOLECALCIFEROL Inactive PREVACID 30 MG CPDR Take 1 tablet by mouth daily-PRN PREVACID 30 MG CPDR 104581 LANSOPRAZOLE Inactive DOXYCYCLINE HYCLATE 100 MG TAB 1 tab twice a day for 14 days 2013 DOXYCYCLINE HYCLATE 100 MG TAB 6763978 DOXYCYCLINE HYCLATE Inactive XOPENEX 1.25 MG/3ML NEBU 1 neb every 4 hours if needed for cough/congestion XOPENEX 1.25 MG/3ML NEBU 805117 LEVALBUTEROL HCL Inactive CYCLOBENZAPRINE HCL 10 MG TABS 1/2 - 1 tab by mouth three times daily if needed for spasms/pain CYCLOBENZAPRINE HCL 10 MG TABS 522131 CYCLOBENZAPRINE HCL Inactive ALBUTEROL SULFATE 0.083 % NEBU SOLN one vial per nebulizer every 4-6 hours as needed ALBUTEROL SULFATE 0.083 % NEBU SOLN 172861 ALBUTEROL SULFATE Inactive CEFTIN 500 MG TAB 1 twice a day CEFTIN 500 MG TAB 814541 CEFUROXIME AXETIL Inactive ZOFRAN ODT 4 MG TBDP 1 pill dissolved by mouth every 4 hours if needed for nausea ZOFRAN ODT 4 MG TBDP 315944 ONDANSETRON Inactive ADULT ASPIRIN EC LOW STRENGTH 81 MG TBEC Take 1 tablet by mouth daily 2014 ADULT ASPIRIN EC LOW STRENGTH 81 MG TBEC 600080 ASPIRIN Inactive CALCIUM 600+D PLUS MINERALS 600-400 [...] or an apple NIACIN 500 MG TABS 174796 NIACIN Inactive NIASPAN 500 MG ORAL CR-TABS 1 pill nightly x 1 week, then 2 pills nightly x 1 week, then 3 pills nightly x 1 week, then 4 pills nightly NIASPAN 500 MG ORAL CR-TABS NIACIN (ANTIHYPERLIPIDEMIC) Inactive OXYCODONE HCL 5 MG ORAL CAPS 1 TAB PO Q HS OXYCODONE HCL 5 MG ORAL CAPS 5647619 OXYCODONE HCL Inactive FLUTICASONE PROPIONATE 50 MCG/ACT SUSP 1 to 2 sprays each nostril daily 04/21 FLUTICASONE PROPIONATE 50 MCG/ACT SUSP 2287531 FLUTICASONE PROPIONATE Inactive POLYTRIM 99547-6.1 UNIT/ML-% SOLN 1 gtt to affected eye q3h x 7 days POLYTRIM 80809-2.1 UNIT/ML-% SOLN 034575 POLYMYXIN B- TRIMETHOPRIM Inactive CHERATUSSIN AC 100-10 MG/5ML SYRP 1 tsp by mouth every 4 hours as needed for cough CHERATUSSIN AC 100-10 MG/5ML SYRP 553820 GUAIFENESIN-CODEINE Inactive LEVOTHYROXINE SODIUM 75 MCG TABS Take 1 tab daily LEVOTHYROXINE SODIUM 75 MCG TABS 589305 LEVOTHYROXINE SODIUM Inactive CLARITIN 10 MG TAB 1 tablet by mouth daily as needed for allergies CLARITIN 10 MG TAB 758212 LORATADINE Inactive FISH OIL 1000 MG CAPS 3 pills daily FISH OIL 1000 MG CAPS OMEGA-3 FATTY ACIDS Inactive ONDANSETRON 4 MG TBDP 1 q4h PRN nausea ONDANSETRON 4 MG TBDP 810898 ONDANSETRON Inactive ADVAIR DISKUS 250-50 MCG/DOSE AEPB 1 puff BID ADVAIR DISKUS 250-50 MCG/DOSE AEPB FLUTICASONE-SALMETEROL Inactive TRAMADOL HCL 50 MG TABS 1 tab po every 6 hrs prn pain TRAMADOL HCL 50 MG TABS 268984 TRAMADOL HCL Inactive TRIAMCINOLONE ACETONIDE 0.1 % CREA apply bid sparingly to rash TRIAMCINOLONE ACETONIDE 0.1 % CREA 4715356 TRIAMCINOLONE ACETONIDE Inactive PREDNISONE 20 MG TAB 1 tab twice daily for 3 day, then one daily for three days PREDNISONE 20 MG TAB 583238 PREDNISONE Inactive IBUPROFEN 600 MG TAB 1 tablet by mouth every 6 hours for 7 days, then 1 tablet every 6 hours as needed. Take with food IBUPROFEN 600 MG TAB 037804 IBUPROFEN Inactive BACTRIM DS 800-160 MG TAB 1 tab by mouth twice daily BACTRIM DS 800-160 MG TAB 19820606 TRIMETHOPRIM-SULFAMETHOXAZOLE Inactive AZITHROMYCIN 250 MG TABS 2 po qd x 1 day, then 1 po qd x 4 days AZITHROMYCIN 250 MG TABS 407862 AZITHROMYCIN Inactive CEFDINIR 300 MG CAPS by mouth twice a day CEFDINIR 300 MG CAPS 20020708 CEFDINIR Inactive AZITHROMYCIN 250 MG TABS 2 pills on day 1, then 1 pill daily x 4 days AZITHROMYCIN 250 MG TABS 847177 AZITHROMYCIN Inactive DOXYCYCLINE HYCLATE 100 MG CAP 1 cap by mouth twice daily DOXYCYCLINE HYCLATE 100 MG CAP 3135778 DOXYCYCLINE HYCLATE Inactive FUROSEMIDE 20 MG TABS 1 pill by mouth daily, for edema FUROSEMIDE 20 MG TABS 562546 FUROSEMIDE Inactive AZITHROMYCIN 250 MG TABS 2 po qd x 1 day, then 1 po qd x 4 days AZITHROMYCIN 250 MG TABS 982563 AZITHROMYCIN Inactive CEFTIN 500 MG TAB 1 twice a day CEFTIN 500 MG TAB 931575 CEFUROXIME AXETIL Inactive CEFDINIR 300 MG CAPS [...] for 2 days PREDNISONE 20 MG TAB 615341 PREDNISONE Inactive PREDNISONE 20 MG TAB take 3 tabs daily for 3 days, 2 tabs daily for 3 days, 1 tab daily for 3 days, 1/2 tab daily for 3 days PREDNISONE 20 MG TAB 202514 PREDNISONE Inactive BACTRIM DS 800-160 MG TAB 1 tab by mouth twice daily BACTRIM DS 800-160 MG TAB 567135 TRIMETHOPRIM-SULFAMETHOXAZOLE Inactive Immunizations Vaccine Administration Date Value Standard Description Seasonal influenza vaccine, injectable, containing preservative, for > 3 years old (Afluria, FluLaval, Fluzone, Fluvirin, Fluarix, Agriflu(>=18 yo)) Fluzone (>3 yrs.) [VNY859] Influenza, seasonal, injectable influenza immunization (Flu Vax) has been administered Influenza - Unspecified Formulation [CVX88] influenza virus vaccine, unspecified formulation Seasonal influenza vaccine, injectable, containing preservative, for > 3 years old (Afluria, FluLaval, Fluzone, Fluvirin, Fluarix, Agriflu(>=18 yo)) Fluzone (>3 yrs.) [YQC316] Influenza, seasonal, injectable pneumococcal immunization administered Pneumovax 23 [CVX33] pneumococcal polysaccharide vaccine, 23 valent dT (Diphtheria and Tetanus) booster given given Td(adult) unspecified formulation Boostrix (Tetanus toxoid, reduced diphtheria toxoid and acellular pertussis vaccine, adsorbed), booster Boostrix [XCK470] tetanus toxoid, reduced diphtheria toxoid, and acellular [...] PANEL - Chemistry cholesterol, serum 166 mg/dL 394-385 9417/12/06 triglyceride, serum, fasting 86 mg/dL 30-200 HDL [...] negative Encounters Code Encounter Date Provider Facility CPT-09059 Level 3 Est. Patient 17:32:14 CDT Gab Padron MD [facility] CPT-72037 Level 3 Est. Patient 10:28:15 CDT Tisha Lambert [facility] CPT-04111 Level 3 Est. Patient 14:50:29 CDT Gab Padron MD [facility] CPT-38996 Level 3 Est. Patient 14:46:09 CDT Tisha Lambert [facility] CPT-31830 Level 4 New Patient 16:13:15 CDT Todd Callaway MD [facility] CPT-35349 Level 4 Est. Patient 13:18:33 CDT Gab Padron MD [facility] CPT-43034 Level 3 Est. Patient 15:20:50 CDT Jared Og MD [facility] CPT-06657 Level 3 Est. Patient 17:43:55 SYSTEMS ANALYST DEVELOPER Gab Padron MD [facility] CPT-49988 Level 3 Est. Patient 17:07:49 SYSTEMS ANALYST DEVELOPER Jared Og MD [facility] CPT-31170 Level 4 Est. Patient 19:55:18 SYSTEMS ANALYST DEVELOPER Jared Og MD [facility] CPT-76523 Level 3 Est. Patient 20:13:34 SYSTEMS ANALYST DEVELOPER Jared Og MD [facility] CPT-83004 Level 4 Est. Patient 16:31:27 CDT Gab Padron MD [facility] CPT-92207 Level 2 Est. Patient 12:23:38 CDT Jared Og MD [facility] CPT-78148 Level 3 Est. Patient 11:01:51 CDT Gab Padron MD [facility] CPT-12727 Level 3 Est. Patient 15:27:02 CDT Jared Og MD [facility] CPT-44933 Level 4 Est. Patient 09:25:27 CDT Gab Padron MD [facility] CPT-65617 Level 3 Est. Patient 10:29:41 CDT Rodrigo Sarah [facility]-83892 Level 4 Est. Patient 17:51:05 CDT Gab Padron MD [facility]-31210 Level 3 Est. Patient 14:18:08 CDT Gab Padron MD [facility]-43797 Level 4 Est. Patient 10:18:54 CDT Gab Padron MD [facility]-39822 Level 3 Est. Patient 11:30:07 CDT Rodrigo Sarah [facility]-60546 Level 4 Est. Patient 21:02:30 SYSTEMS ANALYST DEVELOPER Gab Padron MD [facility]-48559 Level 3 Est. Patient 11:02:19 SYSTEMS ANALYST DEVELOPER Gab Padron MD [facility]-39660 Level 4 Est. Patient 22:24:31 SYSTEMS ANALYST DEVELOPER Gab Padron MD [facility]-42732 Level 3 Est. Patient 18:33:46 SYSTEMS ANALYST DEVELOPER Gab Padron MD [facility]-10591 Level 3 Est. Patient 16:19:11 CDT Yolande Lindsay MD [facility]-21429 Level 3 Est. Patient 18:59:14 CDT Yolande Lindsay MD [facility]-61358 Level 4 Est. Patient 21:29:26 CDT Yolande Lindsay MD [facility]-83916 Level 3 Est. Patient 07:37:45 CDT Yolande Lindsay [facility]68737 Level 3 Est. Patient 17:03:46 CDT Yolande Lindsay MD [facility]-52854 Level 4 Est. Patient 20:02:13 SYSTEMS ANALYST DEVELOPER Yolande Lindsay MD [facility] CPT-54578 Level 3 Est. Patient 16:02:07 SYSTEMS ANALYST DEVELOPER Alexis Ordaz MD [facility] CPT-28737 Level 3 Est. Patient 12:41:24 SYSTEMS ANALYST DEVELOPER Yolande Lindsay MD [facility]-83445 Level 3 Est. Patient 15:41:20 SYSTEMS ANALYST DEVELOPER Yolande Lindsay MD [facility]-09424 Level 3 Est. Patient 13:20:02 SYSTEMS ANALYST DEVELOPER Yolande Lindsay MD [facility] CPT-05808 Level 3 Est. Patient 15:00:38 CDT Jared Og MD [facility]-77059 Level 3 Est. Patient 10:22:32 CDT Yolande Lindsay MD [facility]-19312 Level 3 Est. Patient 17:12:58 CDT Yolande Lindsay MD [facility] CPT-01541 Level 4 Est. Patient 13:30:58 CDT Yolande Lindsay MD [facility] CPT-76040 Level 4 New Patient 09:02:42 CDT Jared Og MD [facility]-14289 Level 3 Est. Patient 08:19:07 CDT Yolande Lindsay MD [facility] CPT-84712 Level 3 Est. Patient 12:00:13 SYSTEMS ANALYST DEVELOPER Gab Padron MD [facility] CPT-51299 Level 3 Est. Patient 16:15:23 SYSTEMS ANALYST DEVELOPER Yolande Lindsay MD [facility]-49698 Level 2 Est. Patient 19:47:15 CDT Yolande Lindsay MD [facility]-83763 Level 3 Est. Patient 21:38:31 CDT Yolande Lindsay MD [facility]-49927 Level 3 Est. Patient 10:25:12 CDT Adiel PERAZA [facility]-97614 Level 4 Est. Patient 10:51:58 CDT Yolande Lindsay MD [facility]-77669 Level 3 Est. Patient 14:04:55 SYSTEMS ANALYST DEVELOPER Rodrigo Sarah [facility]-54822 Level 3 Est. Patient 10:46:35 SYSTEMS ANALYST DEVELOPER Rodrigo Sarah [facility]-74008 Level 3 Est. Patient 14:24:37 SYSTEMS ANALYST DEVELOPER Yolande Lindsay MD [facility]-50443 Level 3 Est. Patient 17:41:58 SYSTEMS ANALYST DEVELOPER Yolande Lindsay MD [facility]-28051 Level 2 Est. Patient 22:01:41 SYSTEMS ANALYST DEVELOPER Rodrigo Sarah [facility]-31451 Level 2 Est. Patient 22:01:11 SYSTEMS ANALYST DEVELOPER Rodrigo Sarah [facility]-23703 Level 3 Est. Patient 10:12:29 SYSTEMS ANALYST DEVELOPER Rodrigo Sarah [facility]-05035 Level 3 Est. Patient 11:05:44 CDT Alexis Ordaz MD [facility]-74225 Level 3 Est. Patient 14:57:20 CDT Yolande Lindsay MD [facility]-94487 Level 3 Est. Patient 14:40:57 CDT Yolande Lindsay MD [facility]-95243 Level 3 Est. Patient 20:55:40 CDT Yolande Lindsay MD [facility]-23690 Level 3 Est. Patient 12:42:38 SYSTEMS ANALYST DEVELOPER Yolande Lindsay MD [facility]-77014 Level 3 Est. Patient 11:54:49 SYSTEMS ANALYST DEVELOPER Des Hines MD [facility] CPT-29112 Level 3 Est. Patient 17:06:[address] [facility] Procedures Code Procedure Name Date Entry Date Standard Description CPT-J2930 Solu Medrol 125 mg (Methyl Prednisolone Sodium Succinate) 13:19:02 CDT CPT-25325 Abx/Therapy Injection 13:19:02 CDT CPT-J2930 Solu Medrol 125 mg (Methyl Prednisolone Sodium Succinate) 13:05:03 CDT CPT-47500 Hip, complete, 2-3 views - XRAY USE ONLY 17:19:04 SYSTEMS ANALYST DEVELOPER CPT-97712 Venipuncture Draw Fee 08:37:59 SYSTEMS ANALYST DEVELOPER CPT-20353 Liver Profile - LAB USE ONLY 08:37:59 SYSTEMS ANALYST DEVELOPER CPT-51288 Lipid - LAB USE ONLY 08:37:58 SYSTEMS ANALYST DEVELOPER CPT-40391 First Vx - Ix admin via ID IM or jet injects without counseling by physician 11:52:31 CDT CPT-99350 Fluzone Preservative Free Intramuscular Suspension 11:52 :31 CDT CPT-04814 Foot, left, comp min 3V - XRAY USE ONLY 09:24:54 CDT CPT-79905 Abd single AP View - XRAY USE ONLY 11:16:17 CDT CPT-46553 T spine AP/ Lat - XRAY USE ONLY 09:34:21 CDT CPT-35546 Chest 2V Frontal and Lat - XRAY USE ONLY 10:48:51 CDT CPT-48611 LS spine comp w obliq 13:28:00 SYSTEMS ANALYST DEVELOPER CPT-J1040 Depo Medrol 80 mg (Methyl Prednisolone Acetate) 10:51: 28 SYSTEMS ANALYST DEVELOPER CPT-J1100 Decadron 8mg (Dexamethasone) 10:51:28 SYSTEMS ANALYST DEVELOPER CPT-37122 Abx/Therapy Injection 10:51:28 SYSTEMS ANALYST DEVELOPER CPT-J1100 Decadron 8mg (Dexamethasone) 21:02:30 SYSTEMS ANALYST DEVELOPER CPT-J1040 Depo Medrol 80 mg (Methyl Prednisolone Acetate) 21:02: 30 SYSTEMS ANALYST DEVELOPER [id number] Event Monitor - MC Transmission 09:12:32 CDT 08/06 [id number] Event Monitor - MC review and interp 09:12:32 CDT [id number] Event Monitor - MC recording 09:12:32 CDT CPT-58801 EKG Trac and Interp 16:50:22 CDT CPT-J1030 Depo Medrol 40 mg (Methyl Prednisolone Acetate) 17:05: 54 CDT CPT-J1100 Decadron 4mg (Dexamethasone) 17:05:54 CDT CPT-07336 Abx/Therapy Injection 17:05:54 CDT CPT-J1100 Decadron 4mg (Dexamethasone) 16:55:28 CDT CPT-J1030 Depo Medrol 40 mg (Methyl Prednisolone Acetate) 16:55: 28 CDT CPT-35717 Ankle Complete - Min 3V 15:58:50 CDT CPT-24720 Knee 3V 15:58:50 CDT CPT-32987 Hip comp min 2V 15:58:50 CDT CPT-J2270 Morphine Sulfate 10 mg 14:25:44 SYSTEMS ANALYST DEVELOPER CPT-J2550 Phenergan 12.5 mg (Promethazine) 14:25:44 SYSTEMS ANALYST DEVELOPER CPT-36543 Abx/Therapy Injection 14:25:44 SYSTEMS ANALYST DEVELOPER CPT-J2550 Phenergan 12.5 mg (Promethazine) 14:08:03 SYSTEMS ANALYST DEVELOPER CPT-J2270 Morphine Sulfate 10 mg 14:08:03 SYSTEMS ANALYST DEVELOPER CPT-88500 Bladder Scan 15:00:38 CDT CPT-TCMM Transitional Care Mgmt-Moderate 09:52:22 CDT CPT-J1030 Depo Medrol 40 mg (Methyl Prednisolone Acetate) 10:55: 18 CDT CPT-J1100 Decadron 4mg (Dexamethasone) 10:55:18 CDT CPT-26840 Abx/Therapy Injection 10:55:18 CDT CPT-J1030 Depo Medrol 40 mg (Methyl Prednisolone Acetate) 10:22: 32 CDT CPT-J1100 Decadron 4mg (Dexamethasone) 10:22:32 CDT CPT-72971 Postop F/U Visit 14:37:13 CDT CPT-99007 Ankle Complete - Min 3V 17:11:58 CDT CPT-33890 Foot comp min 3V 17:11:58 CDT CPT-44158 Bladder Scan 09:56:58 CDT CPT-56252 Postop F/U Visit 09:56:58 CDT CPT-30439 Cystoscopy 09:02:42 CDT CPT-42722 Bladder Scan 09:02:42 CDT CPT-35165 Abd single AP View 16:00:35 CDT CPT-63505 Administration single or combination vaccine inc oral 10 :15:43 CDT CPT-04554 Influenza split virus > age 3 10:15:43 CDT CPT-24632 Nail Avulsion 09:24:57 CDT CPT-OV Office Visit 11:15:41 CDT CPT-48898 Abx/Therapy Injection 10:51:30 CDT CPT-J3301 Kenalog 40 mg (Triamcinolone Acetonide) 10:25:12 CDT CPT-J1100 Decadron 4mg (Dexamethasone) 10:25:12 CDT CPT-01964 Anoscopy diagnostic 10:36:12 CDT CPT-OV Office Visit 15:34:31 CDT CPT-13890 Abx/Therapy Injection 08:21:15 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 Care Visit 14:19:18 SYSTEMS ANALYST DEVELOPER CPT-38031 Postop F/U Visit 14:47:51 SYSTEMS ANALYST DEVELOPER CPT-88292 Postop F/U Visit 15:15:14 SYSTEMS ANALYST DEVELOPER CPT-20485 Postop F/U Visit 14:41:43 CDT CPT-67852 Postop F/U Visit 15:47:46 CDT CPT-OV Office Visit 15:27:23 CDT CPT-OV Office Visit 17:20:34 CDT CPT-60849 Abx/Therapy Injection 15:05:57 CDT CPT-J1100 Decadron 8mg (Dexamethasone) 14:44:57 CDT CPT-J1040 Depo Medrol 80 mg (Methyl Prednisolone Acetate) 14:44: 57 CDT CPT-JTINJ Joint Injection 10:17:37 CDT CPT-80861 Administration 2+ single or combination vaccines inc oral 13:01:46 SYSTEMS ANALYST DEVELOPER CPT-95843 Administration single or combination vaccine inc oral 13 :01:46 SYSTEMS ANALYST DEVELOPER CPT-37995 Pneumovax 13:01:46 SYSTEMS ANALYST DEVELOPER CPT-78340 Influenza split virus > age 3 13:01:46 SYSTEMS ANALYST DEVELOPER CPT-31895 Administration single or combination vaccine inc oral 08 :56:49 CDT CPT-07197 Tdap 08:56:49 CDT
--- OUTSIDE RECORDS SUMMARY | 2017-03-21 20:21 | XMS REPORT | Clinical Summary ---
Author Author Admin, E Organization [facility] Address Unknown Phone Unavailable Allergies, Adverse Reactions, Alerts Allergy Name Reaction Description Start Date Severity Status Provider VALENTIN Critical Active Rodrigo Fracharlottel MANAGER LINE CHLORHEXIDINE GLUCONATE tongue and gums swollen Critical Active Hoa Otto RMA NORFLEX Rash Critical Active Silvestrellina Frazell MANAGER LINE TRAZODONE HCL sees things Critical Active Dewayne [...] foot Foot pain, right 729.5 Resolved Yolande Lidnsay MD PhD Pain in limb Tick bite [...] MD Lumbago Cough 786.2 Active Jillina Tyrel MANAGER LINE Cough 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 Jillina Frazellilian MANAGER LINE 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 Anemia 285.9 Active Gab Padron MD Anemia, unspecified Conjunctivitis 372.30 Active Jillnacho Sarah APRN Conjunctivitis, unspecified Sinusitis 473.9 Active Silvestrellina Frazell MANAGER LINE Unspecified sinusitis (chronic) Nonspecific syndrome suggestive of viral illness 079.99 Active Jillina Frazell MANAGER LINE Unspecified viral infection Laryngitis 464.00 Active Jillina Frazell MANAGER LINE Acute laryngitis without mention of obstruction Abdominal [...] Flank pain, left 789.09 Active Jillina Frazell MANAGER LINE Abdominal pain, other specified site; multiple sites Abdominal pain, generalized 789.07 Active Jillina Farshadzell MANAGER LINE Abdominal pain, generalized Back pain, thoracic region, left 724.1 Active Jillina Frazell MANAGER LINE Pain in thoracic spine Abdominal pain, left lower quadrant 789.04 Active Gab Padron MD Abdominal pain, left lower quadrant Slowing of urinary stream 788.62 Active Gab Pardon MD Slowing of urinary stream Interstitial cystitis [...] MD PhD INGROWN TOENAIL ICD-703.0 Inactive Yolande Lnidsay MD PhD INGROWN TOENAIL ICD-703.0 Inactive Yolande [...] 1/2 tab daily for 3 days PREDNISONE 92812154346 Active Tisha Lambert APRN Active TRAMADOL HCL 50 MG TABS 1 tab po every 6 hrs prn pain TRAMADOL HCL 84578486573 Active Gab Padron MD Active PREDNISONE 20 MG TAB 2 tabs daily for 3 days, 1 tab daily for 3 days, 1/2 tab daily for 2 days PREDNISONE 87882228478 No Longer Active aGb Padron MD Active ZOFRAN ODT 4 MG TBDP 1 po q6hr PRN Nausea ONDANSETRON 88852303798 Active Gab Padron MD Active IBUPROFEN 600 MG TAB 1 tablet by mouth every 6 hours for 7 days, then 1 tablet every 6 hours as needed. Take with food IBUPROFEN 85313018609 Active Rodrigo Sarah APRN Active BACTRIM DS 800-160 MG TAB 1 tab by mouth twice daily TRIMETHOPRIM-SULFAMETHOXAZOLE 44792435733 No Longer Active Gab Padron MD Active ADVAIR DISKUS 250-50 MCG/DOSE AEPB 1 puff BID FLUTICASONE- SALMETEROL 37473820988 Active Rodrigo Sarah APRN Active LEVOTHYROXINE SODIUM 75 MCG TABS Take 1 tab daily LEVOTHYROXINE SODIUM 28648766292 No Longer Active Mariana Cuadra [facility] Active SYNTHROID 88 MCG ORAL TABS Take one by mouth daily LEVOTHYROXINE SODIUM 81342616430 Active Gab Padron MD Active CHERATUSSIN AC 100-10 MG/5ML SYRP 1 tsp by mouth every 4 hours as needed for cough GUAIFENESIN-CODEINE 99616781685 No Longer Active Gab Padron MD Active POLYTRIM 16833-2.1 UNIT/ML-% SOLN 1 gtt to affected eye q3h x 7 days POLYMYXIN B-TRIMETHOPRIM 38075393060 No Longer Active Gab Padron MD Active FLUTICASONE PROPIONATE 50 MCG/ACT SUSP 1 to 2 sprays each nostril daily 04/21 FLUTICASONE PROPIONATE 54831800346 No Longer Active Gab Padron MD Active TRILEPTAL 600 MG TABS Take one 1 tablet in Am and 1 tablet at night OXCARBAZEPINE 00705638096 Active Gab Padron MD Active CEFDINIR 300 MG CAPS 1 po BID x 10 days CEFDINIR 95605789550 No Longer Active Rowenaina Tyrel GAUTAM Active CEFTIN 500 MG TAB 1 twice a day CEFUROXIME AXETIL 46013753806 No Longer Active Gab Padron MD Active AZITHROMYCIN 250 MG TABS 2 po qd x 1 day, then 1 po qd x 4 days AZITHROMYCIN 54567776864 No Longer Active Rodrigo Sarah APRN Active CLARITIN 10 MG TAB 1 tablet by mouth daily as needed for allergies LORATADINE 40599944365 Active Silvestrellnacho Frahossein ZAPATAN Active OXYCODONE HCL 5 MG ORAL CAPS 1 TAB PO Q HS OXYCODONE HCL 25197814518 No Longer Active Rodrigo Sarah APRN Active NIASPAN 500 MG ORAL CR-TABS 1 pill nightly x 1 week, then 2 pills nightly x 1 week, then 3 pills nightly x 1 week, then 4 pills nightly NIACIN (ANTIHYPERLIPIDEMIC) 26934535595 No Longer Active Silvestrellnacho Sarah APRN Active NIACIN 500 MG TABS 1 pill by mouth nightly x 1 week, then 2 pills x 1 week, then 3 pills x 1 week, then 4 pills nightly - take after evening meal, with applesauce or an apple NIACIN 95132631041 No Longer Active Yolande Lindsay MD PhD Active FISH OIL 1000 MG CAPS 3 pills daily OMEGA-3 FATTY ACIDS 65595359672 Active Yolande Lindsay MD PhD Active TRIAMCINOLONE ACETONIDE 0.1 % CREA apply bid sparingly to rash TRIAMCINOLONE ACETONIDE 85420961273 Active Yolande Lindsay MD PhD Active FUROSEMIDE 20 MG TAB 1 tablet by mouth daily FUROSEMIDE 40104762911 Active Tisha Lambert APRN Active LISINOPRIL 20 MG ORAL TABS 1 tab by mouth daily LISINOPRIL 61698104441 Active Tisha Lambert APRN Active FUROSEMIDE 20 MG TABS 1 pill by mouth daily, for edema FUROSEMIDE 45931579005 No Longer Active Yolande Lindsay MD PhD Active ATORVASTATIN CALCIUM 10 MG TABS 1 pill by mouth daily, for cholesterol 09/06 ATORVASTATIN CALCIUM 81262144670 Active Gab Padron MD Active CALCIUM 600+D PLUS MINERALS 600-400 MG-UNIT ORAL CHEW 1 tab by mouth daily CALCIUM CARBONATE-VIT D-MIN 43626774545 No Longer Active Yolande Lindsay MD PhD Active CYCLOBENZAPRINE HCL 10 MG TABS 1 tablet by mouth three times daily as needed for muscle spasm/pain CYCLOBENZAPRINE HCL 65499366548 Active Yolande Lindsay MD PhD Active ONDANSETRON 4 MG TBDP 1 q4h PRN nausea ONDANSETRON 80090116328 Active Yolande Lindsay MD PhD Active ADULT ASPIRIN EC LOW STRENGTH 81 MG TBEC Take 1 tablet by mouth daily 2014 ASPIRIN 49390552008 No Longer Active Yolande Lindsay MD PhD Active ZOFRAN ODT 4 MG TBDP 1 pill dissolved by mouth every 4 hours if needed for nausea ONDANSETRON 33216312751 No Longer Active Yolande Lindsay MD PhD Active CEFTIN 500 MG TAB 1 twice a day CEFUROXIME AXETIL 28498737359 No Longer Active Yolande Lindsay MD PhD Active ALBUTEROL SULFATE 0.083 % NEBU SOLN one vial per nebulizer every 4-6 hours as needed ALBUTEROL SULFATE 18961660238 No Longer Active Alexis Ordaz MD Active DOXYCYCLINE HYCLATE 100 MG CAP 1 cap by mouth twice daily DOXYCYCLINE HYCLATE 99105882296 No Longer Active Yolande Lindsay MD PhD Active CYCLOBENZAPRINE HCL 10 MG TABS 1/2 - 1 tab by mouth three times daily if needed for spasms/pain CYCLOBENZAPRINE HCL 02061664455 No Longer Active Yolande Lindsay MD PhD Active AZITHROMYCIN 250 MG TABS 2 pills on day 1, then 1 pill daily x 4 days AZITHROMYCIN 40251125247 No Longer Active Yolande Lindsay MD PhD Active XOPENEX 1.25 MG/3ML NEBU 1 neb every 4 hours if needed for cough/congestion LEVALBUTEROL HCL 61442794817 No Longer Active Yolande Lindsay MD PhD Active DOXYCYCLINE HYCLATE 100 MG TAB 1 tab twice a day for 14 days 2013 DOXYCYCLINE HYCLATE 20152073577 No Longer Active Yolande Lindsay MD PhD Active PREVACID 30 MG CPDR Take 1 tablet by mouth daily-PRN LANSOPRAZOLE 95630623982 No Longer Active Yolande Lindsay MD PhD Active PA VITAMIN D-3 2000 UNIT CAPS 1 CAP PO DAILY CHOLECALCIFEROL 02698425012 No Longer Active Yolande Lindsay MD PhD Active CEFDINIR 300 MG CAPS by mouth twice a day CEFDINIR 05576600709 No Longer Active Gab Padron MD Active TOPAMAX 50 MG TABS 1 PO twice daily TOPIRAMATE 35014536656 Active Yolande Lindsay MD PhD Active AZITHROMYCIN 250 MG TABS 2 po qd x 1 day, then 1 po qd x 4 days AZITHROMYCIN 84079477742 No Longer Active Yolande Lindsay MD PhD Active DICLOFENAC SODIUM 75 MG TBEC 1 tablet by q 12 hours PRN headaches DICLOFENAC SODIUM 63109479625 No Longer Active Yolande Lindsay MD PhD Active FLONASE 50 MCG/ACT SUSP 1 spray each nostril am and hs FLUTICASONE PROPIONATE 77835245352 No Longer Active Todd Callaway MD Active ANUSOL-HC 25 MG SUPPOSITORY 1 rectally twice a day as needed for hemorrhoids HYDROCORTISONE JAYDEN (RECTAL) 38861661007 No Longer Active Yolande Lindsay MD PhD Active ANUSOL-HC 25 MG SUPPOSITORY 1 suppository rectally each evening as needed for anal fissure HYDROCORTISONE JAYDEN (RECTAL) 48824256804 No Longer Active LONNIE Iglesias Active VALIUM 5 MG TAB 1 po 30 minutes prior to your MRI DIAZEPAM 39445369673 No Longer Active LONNIE Iglesias Active METHOCARBAMOL 750 MG TABS 1 PO QID PRN METHOCARBAMOL 20494820436 No Longer Active Daphne Wetzel APRN Active NITROSTAT 0.4 MG SUBL as directed NITROGLYCERIN 82823919388 No Longer Active Rodrigo Sarah APRN Active ROBAXIN-750 750 MG TABS 2 four times a day for 3 days as needed for muscle spasm, then 1 four times a day as needed METHOCARBAMOL 80128584457 No Longer Active Rodrigo Sarah APRN Active HYDROCODONE-ACETAMINOPHEN 5-325 MG TABS 1 q 4-6 hrs prn HYDROCODONE-ACETAMINOPHEN 88542811133 No Longer Active Rodrigo Sarah APRN Active VERAPAMIL HCL CR 180 MG CR-TABS TAKE 1 TAB DAILY VERAPAMIL HCL 60954232382 No Longer Active Yolande Lindsay MD PhD Active BACTRIM DS 800-160 MG TAB 1 tab by mouth twice daily TRIMETHOPRIM-SULFAMETHOXAZOLE 17952283948 No Longer Active Yolande Lindsay MD PhD Active NEXIUM 40 MG PACK 1 by mouth daily ESOMEPRAZOLE MAGNESIUM 97605158339 No Longer Active Des Hines MD Active EPIPEN 2-CHARLETTE 0.3 MG/0.3ML OMARI as need for allergic reaction EPINEPHRINE 20933476026 Active Yolande Lindsay MD PhD Active NEXIUM 40 MG CPDR 1 PO Q D DAY ESOMEPRAZOLE MAGNESIUM 08691384027 No Longer Active Sadia Perry RN Active NEXIUM 40 MG PACK 1 by mouth daily NEXIUM 40 MG PACK ESOMEPRAZOLE MAGNESIUM Inactive VERAPAMIL HCL CR 180 MG CR-TABS TAKE 1 TAB DAILY VERAPAMIL HCL CR 180 MG CR-TABS VERAPAMIL HCL Inactive HYDROCODONE-ACETAMINOPHEN 5-325 MG TABS 1 q 4-6 hrs prn HYDROCODONE-ACETAMINOPHEN 5-325 MG TABS 526957 HYDROCODONE-ACETAMINOPHEN Inactive ROBAXIN-750 750 MG TABS 2 four times a day for 3 days as needed for muscle spasm, then 1 four times a day as needed ROBAXIN-750 750 MG TABS 228196 METHOCARBAMOL Inactive NITROSTAT 0.4 MG SUBL as directed NITROSTAT 0.4 MG SUBL 815141 NITROGLYCERIN Inactive METHOCARBAMOL 750 MG TABS 1 PO QID PRN METHOCARBAMOL 750 MG TABS 367440 METHOCARBAMOL Inactive VALIUM 5 MG TAB 1 po 30 minutes prior to your MRI VALIUM 5 MG TAB 620485 DIAZEPAM Inactive ANUSOL-HC 25 MG SUPPOSITORY 1 suppository rectally each evening as needed for anal fissure ANUSOL-HC 25 MG SUPPOSITORY 8013582 HYDROCORTISONE JAYDEN (RECTAL) Inactive ANUSOL-HC 25 MG SUPPOSITORY 1 rectally twice a day as needed for hemorrhoids ANUSOL-HC 25 MG SUPPOSITORY 2342125 HYDROCORTISONE JAYDEN (RECTAL) Inactive FLONASE 50 MCG/ACT SUSP 1 spray each nostril am and hs FLONASE 50 MCG/ACT SUSP 4849636 FLUTICASONE PROPIONATE Inactive DICLOFENAC SODIUM 75 MG TBEC 1 tablet by q 12 hours PRN headaches DICLOFENAC SODIUM 75 MG TBEC 483469 DICLOFENAC SODIUM Inactive PA VITAMIN D-3 2000 UNIT CAPS 1 CAP PO DAILY PA VITAMIN D-3 2000 UNIT CAPS CHOLECALCIFEROL Inactive PREVACID 30 MG CPDR Take 1 tablet by mouth daily-PRN PREVACID 30 MG CPDR 790758 LANSOPRAZOLE Inactive DOXYCYCLINE HYCLATE 100 MG TAB 1 tab twice a day for 14 days 2013 DOXYCYCLINE HYCLATE 100 MG TAB 8076217 DOXYCYCLINE HYCLATE Inactive XOPENEX 1.25 MG/3ML NEBU 1 neb every 4 hours if needed for cough/congestion XOPENEX 1.25 MG/3ML NEBU 338655 LEVALBUTEROL HCL Inactive CYCLOBENZAPRINE HCL 10 MG TABS 1/2 - 1 tab by mouth three times daily if needed for spasms/pain CYCLOBENZAPRINE HCL 10 MG TABS 766907 CYCLOBENZAPRINE HCL Inactive ALBUTEROL SULFATE 0.083 % NEBU SOLN one vial per nebulizer every 4-6 hours as needed ALBUTEROL SULFATE 0.083 % NEBU SOLN 147408 ALBUTEROL SULFATE Inactive CEFTIN 500 MG TAB 1 twice a day CEFTIN 500 MG TAB 437374 CEFUROXIME AXETIL Inactive ZOFRAN ODT 4 MG TBDP 1 pill dissolved by mouth every 4 hours if needed for nausea ZOFRAN ODT 4 MG TBDP 644926 ONDANSETRON Inactive ADULT ASPIRIN EC LOW STRENGTH 81 MG TBEC Take 1 tablet by mouth daily 2014 ADULT ASPIRIN EC LOW STRENGTH 81 MG TBEC 545600 ASPIRIN Inactive CALCIUM 600+D PLUS MINERALS 600-400 [...] or an apple NIACIN 500 MG TABS 856797 NIACIN Inactive NIASPAN 500 MG ORAL CR-TABS 1 pill nightly x 1 week, then 2 pills nightly x 1 week, then 3 pills nightly x 1 week, then 4 pills nightly NIASPAN 500 MG ORAL CR-TABS NIACIN (ANTIHYPERLIPIDEMIC) Inactive OXYCODONE HCL 5 MG ORAL CAPS 1 TAB PO Q HS OXYCODONE HCL 5 MG ORAL CAPS 9677246 OXYCODONE HCL Inactive FLUTICASONE PROPIONATE 50 MCG/ACT SUSP 1 to 2 sprays each nostril daily 04/21 FLUTICASONE PROPIONATE 50 MCG/ACT SUSP 0873398 FLUTICASONE PROPIONATE Inactive POLYTRIM 29778-5.1 UNIT/ML-% SOLN 1 gtt to affected eye q3h x 7 days POLYTRIM 98050-4.1 UNIT/ML-% SOLN 712963 POLYMYXIN B- TRIMETHOPRIM Inactive CHERATUSSIN AC 100-10 MG/5ML SYRP 1 tsp by mouth every 4 hours as needed for cough CHERATUSSIN AC 100-10 MG/5ML SYRP 454395 GUAIFENESIN-CODEINE Inactive LEVOTHYROXINE SODIUM 75 MCG TABS Take 1 tab daily LEVOTHYROXINE SODIUM 75 MCG TABS 541342 LEVOTHYROXINE SODIUM Inactive BACTRIM DS 800-160 MG TAB 1 tab by mouth twice daily BACTRIM DS 800-160 MG TAB 200937 TRIMETHOPRIM-SULFAMETHOXAZOLE Inactive AZITHROMYCIN 250 MG TABS 2 po qd x 1 day, then 1 po qd x 4 days AZITHROMYCIN 250 MG TABS 8904019 AZITHROMYCIN Inactive CEFDINIR 300 MG CAPS by mouth twice a day CEFDINIR 300 MG CAPS 746397 CEFDINIR Inactive AZITHROMYCIN 250 MG TABS 2 pills on day 1, then 1 pill daily x 4 days AZITHROMYCIN 250 MG TABS 0397306 AZITHROMYCIN Inactive DOXYCYCLINE HYCLATE 100 MG CAP 1 cap by mouth twice daily DOXYCYCLINE HYCLATE 100 MG CAP 7589631 DOXYCYCLINE HYCLATE Inactive FUROSEMIDE 20 MG TABS 1 pill by mouth daily, for edema FUROSEMIDE 20 MG TABS 965037 FUROSEMIDE Inactive AZITHROMYCIN 250 MG TABS 2 po qd x 1 day, then 1 po qd x 4 days AZITHROMYCIN 250 MG TABS 2139452 AZITHROMYCIN Inactive CEFTIN 500 MG TAB 1 twice a day CEFTIN 500 MG TAB 156219 CEFUROXIME AXETIL Inactive CEFDINIR 300 MG CAPS 1 po BID x 10 days CEFDINIR 300 MG CAPS 847102 CEFDINIR Inactive BACTRIM DS 800-160 MG TAB 1 tab by mouth twice daily BACTRIM DS 800-160 MG TAB 696855 TRIMETHOPRIM-SULFAMETHOXAZOLE Inactive PREDNISONE 20 MG TAB 2 tabs daily for 3 days, 1 tab daily for 3 days, 1/2 tab daily for 2 days PREDNISONE 20 MG TAB 323675 PREDNISONE Inactive Immunizations Vaccine Administration Date Value Standard Description Seasonal influenza vaccine, injectable, containing preservative, for > 3 years old (Afluria, FluLaval, Fluzone, Fluvirin, Fluarix, Agriflu(>=18 yo)) Fluzone (>3 yrs.) [MVT059] Influenza, seasonal, injectable influenza immunization (Flu Vax) has been administered Influenza - Unspecified Formulation [CVX88] influenza virus vaccine, unspecified formulation pneumococcal immunization administered Pneumovax 23 [CVX33] pneumococcal polysaccharide vaccine, 23 valent Seasonal influenza vaccine, injectable, containing preservative, for > 3 years old (Afluria, FluLaval, Fluzone, Fluvirin, Fluarix, Agriflu(>=18 yo)) Fluzone (>3 yrs.) [UKI531] Influenza, seasonal, injectable dT (Diphtheria and Tetanus) booster given given Td(adult) unspecified formulation Boostrix (Tetanus toxoid, reduced diphtheria toxoid and acellular pertussis vaccine, adsorbed), booster Boostrix [CGM513] tetanus toxoid, reduced diphtheria toxoid, and acellular [...] pressure, diastolic - 8462-4 75 mm[Hg] BP weldno blood pressure, systolic - 8480-6 130 mm[Hg] [...] Panel - Chemistry sodium, serum 142 mmol/L 050-519 6994/06/30 potassium, serum 4.4 mmol/L 3.5-5.2 chloride, serum 108 mmol/L 98-107 carbon dioxide, venous blood 25.1 mmol/L 21.0-32.0 blood glucose 82 mg/dL 65-110 calcium, serum 9.1 mg/dL 8.5-10.1 urea nitrogen, blood 18 mg/dL 7-18 creatinine, serum 1.31 mg/dL 0.55-1.30 Lab Report: Lipid Panel, HEPATIC PANEL - Chemistry cholesterol, serum 166 mg/dL 249-956 1802/12/06 triglyceride, serum, fasting 86 mg/dL 30-200 HDL [...] dipstick Negative Negative sodium, serum 142 mmol/L 867-672 5941/07/18 carbon dioxide, venous blood 27.8 mmol/L 21.0-32.0 potassium, serum 4.1 mmol/L 3.5-5.2 chloride, serum 107 mmol/L 98-107 blood glucose 91 mg/dL 65-110 urea nitrogen, blood 19 mg/dL 7-18 creatinine, serum 1.28 mg/dL 0.55-1.30 alanine aminotransferase (SGPT), serum 31 U/L -78 aspartate aminotransferase (SGOT), serum 25 U/L 15-37 [...] negative Encounters Code Encounter Date Provider Facility CPT-66116 Level 3 Est. Patient 15:20:50 CDT Jared Og MD [facility] CPT-93676 Level 3 Est. Patient 17:43:55 SALT OPERATOR Gab Padron MD [facility] CPT-82539 Level 3 Est. Patient 17:07:49 SALT OPERATOR Jared Og MD [facility] CPT-01632 Level 4 Est. Patient 19:55:18 SALT OPERATOR Jared Og MD [facility] CPT-52335 Level 3 Est. Patient 20:13:34 SALT OPERATOR Jared Og MD [facility] CPT-27984 Level 4 Est. Patient 16:31:27 CDT Gab Padron MD [facility] CPT-58555 Level 2 Est. Patient 12:23:38 CDT Jared Og MD [facility] CPT-26736 Level 3 Est. Patient 11:01:51 CDT Gab Padron MD [facility]-00372 Level 3 Est. Patient 15:27:02 CDT Jared Og MD [facility] CPT-99991 Level 4 Est. Patient 09:25:27 CDT Gab Padron MD [facility]-53331 Level 3 Est. Patient 10:29:41 CDT Rodrigo Sarah [facility] CPT-85640 Level 4 Est. Patient 17:51:05 CDT Gab Padron MD [facility] CPT-87207 Level 3 Est. Patient 14:18:08 CDT Gab Padron MD [facility]-47792 Level 4 Est. Patient 10:18:54 CDT Gab Padron MD [facility] CPT-50199 Level 3 Est. Patient 11:30:07 CDT Rodrigo Sarah [facility] CPT-79283 Level 4 Est. Patient 21:02:30 SALT OPERATOR Gab Padron MD [facility] CPT-28899 Level 3 Est. Patient 11:02:19 SALT OPERATOR Gab Padron MD [facility] CPT-52547 Level 4 Est. Patient 22:24:31 SALT OPERATOR Gab Padron MD [facility] CPT-47553 Level 3 Est. Patient 18:33:46 SALT OPERATOR Gab Padron MD [facility] CPT-26282 Level 3 Est. Patient 16:19:11 CDT Yolande Lindsay MD [facility]-69658 Level 3 Est. Patient 18:59:14 CDT Yolande Lindsay MD [facility]-64608 Level 4 Est. Patient 21:29:26 CDT Yolande Lindsay MD [facility]-99286 Level 3 Est. Patient 07:37:45 CDT Yolande Lindsay MD [facility]-34952 Level 3 Est. Patient 17:03:46 CDT Yolande Lindsay MD [facility]-01473 Level 4 Est. Patient 20:02:13 SALT OPERATOR Yolande Lindsay MD [facility]-26623 Level 3 Est. Patient 16:02:07 SALT OPERATOR Alexis Ordaz MD [facility]-21561 Level 3 Est. Patient 12:41:24 SALT OPERATOR Yolande Lindsay MD [facility]-08623 Level 3 Est. Patient 15:41:20 SALT OPERATOR Yolande Lindsay MD [facility]-87461 Level 3 Est. Patient 13:20:02 SALT OPERATOR Yolande Lindsay MD [facility]-16968 Level 3 Est. Patient 15:00:38 CDT Jared Og MD [facility]-60164 Level 3 Est. Patient 10:22:32 CDT Yolande Lindsay MD [facility] CPT-98249 Level 3 Est. Patient 17:12:58 CDT Yolande Lindsay MD [facility]-58990 Level 4 Est. Patient 13:30:58 CDT Yolande Lindsay MD [facility] CPT-24881 Level 4 New Patient 09:02:42 CDT Jared Og MD [facility]-92775 Level 3 Est. Patient 08:19:07 CDT Yolande Lindsay MD [facility]-14760 Level 3 Est. Patient 12:00:13 SALT OPERATOR Gab Padron MD [facility]-83953 Level 3 Est. Patient 16:15:23 SALT OPERATOR Yolande Lindsay MD [facility]66959 Level 2 Est. Patient 19:47:15 CDT Yolande Lindsay MD [facility]-25032 Level 3 Est. Patient 21:38:31 CDT Yolande Lindsay MD [facility] [place]40 Level 3 Est. Patient 10:25:12 CDT Adiel PERAZA [facility]-25446 Level 4 Est. Patient 10:51:58 CDT Yolande Lindsay MD [facility]-37224 Level 3 Est. Patient 14:04:55 SALT OPERATOR Rodrigo Sarah [facility]-39230 Level 3 Est. Patient 10:46:35 SALT OPERATOR Rodrigo Sarah [facility]-49793 Level 3 Est. Patient 14:24:37 SALT OPERATOR Yolande Lindsay MD [facility]-80265 Level 3 Est. Patient 17:41:58 SALT OPERATOR Yolande Lindsay MD [facility] [place]69409 Level 2 Est. Patient 22:01:41 SALT OPERATOR Rodrigo Sarah [facility]-48172 Level 2 Est. Patient 22:01:11 SALT OPERATOR Rodrigo Sarah [facility]-76432 Level 3 Est. Patient 10:12:29 SALT OPERATOR Rodrigo Sarah [facility]-66441 Level 3 Est. Patient 11:05:44 CDT Alexis Ordaz MD [facility] CPT-36008 Level 3 Est. Patient 14:57:20 CDT Yolande Lindsay MD [facility] CPT-87655 Level 3 Est. Patient 14:40:57 CDT Yolande Lindsay MD [facility] CPT-12020 Level 3 Est. Patient 20:55:40 CDT Yolande Lindsay MD [facility] CPT-57199 Level 3 Est. Patient 12:42:38 SALT OPERATOR Yolande Lindsay MD [facility] CPT-12199 Level 3 Est. Patient 11:54:49 SALT OPERATOR Des Hines MD [facility] CPT-16468 Level 3 Est. Patient 17:06:38 CDT Dewayne PERAZA [facility] Procedures Code Procedure Name Date Entry Date Standard Description CPT-J2930 Solu Medrol 125 mg (Methyl Prednisolone Sodium Succinate) 13:19:02 CDT CPT-74634 Abx/Therapy Injection 13:19:02 CDT CPT-J2930 Solu Medrol 125 mg (Methyl Prednisolone Sodium Succinate) 13:05:03 CDT CPT-14829 Hip, complete, 2-3 views - XRAY USE ONLY 17:19:04 SALT OPERATOR CPT-98650 Venipuncture Draw Fee 08:37:59 SALT OPERATOR CPT-87492 Liver Profile - LAB USE ONLY 08:37:59 SALT OPERATOR CPT-02006 Lipid - LAB USE ONLY 08:37:58 SALT OPERATOR CPT-16271 First Vx - Ix admin via ID IM or jet injects without counseling by physician 11:52:31 CDT CPT-66729 Fluzone Preservative Free Intramuscular Suspension 11:52 :31 CDT CPT-33583 Foot, left, comp min 3V - XRAY USE ONLY 09:24:54 CDT CPT-52322 Abd single AP View - XRAY USE ONLY 11:16:17 CDT CPT-03297 T spine AP/ Lat - XRAY USE ONLY 09:34:21 CDT CPT-48949 Chest 2V Frontal and Lat - XRAY USE ONLY 10:48:51 CDT CPT-90905 LS spine comp w obliq 13:28:00 SALT OPERATOR CPT-J1040 Depo Medrol 80 mg (Methyl Prednisolone Acetate) 10:51: 28 SALT OPERATOR CPT-J1100 Decadron 8mg (Dexamethasone) 10:51:28 SALT OPERATOR CPT-81280 Abx/Therapy Injection 10:51:28 SALT OPERATOR CPT-J1100 Decadron 8mg (Dexamethasone) 21:02:30 SALT OPERATOR CPT-J1040 Depo Medrol 80 mg (Methyl Prednisolone Acetate) 21:02: 30 SALT OPERATOR [id number] Event Monitor - MC Transmission 09:12:32 CDT 08/06 [id number] Event Monitor - MC review and interp 09:12:32 CDT [id number] Event Monitor - MC recording 09:12:32 CDT CPT-33974 EKG Trac and Interp 16:50:22 CDT CPT-J1030 Depo Medrol 40 mg (Methyl Prednisolone Acetate) 17:05: 54 CDT CPT-J1100 Decadron 4mg (Dexamethasone) 17:05:54 CDT CPT-69819 Abx/Therapy Injection 17:05:54 CDT CPT-J1100 Decadron 4mg (Dexamethasone) 16:55:28 CDT CPT-J1030 Depo Medrol 40 mg (Methyl Prednisolone Acetate) 16:55: 28 CDT CPT-21681 Ankle Complete - Min 3V 15:58:50 CDT CPT-42914 Knee 3V 15:58:50 CDT CPT-85780 Hip comp min 2V 15:58:50 CDT CPT-J2270 Morphine Sulfate 10 mg 14:25:44 SALT OPERATOR CPT-J2550 Phenergan 12.5 mg (Promethazine) 14:25:44 SALT OPERATOR CPT-03841 Abx/Therapy Injection 14:25:44 SALT OPERATOR CPT-J2550 Phenergan 12.5 mg (Promethazine) 14:08:03 SALT OPERATOR CPT-J2270 Morphine Sulfate 10 mg 14:08:03 SALT OPERATOR CPT-80278 Bladder Scan 15:00:38 CDT CPT-TCMM Transitional Care Mgmt-Moderate 09:52:22 CDT CPT-J1030 Depo Medrol 40 mg (Methyl Prednisolone Acetate) 10:55: 18 CDT CPT-J1100 Decadron 4mg (Dexamethasone) 10:55:18 CDT CPT-95102 Abx/Therapy Injection 10:55:18 CDT CPT-J1030 Depo Medrol 40 mg (Methyl Prednisolone Acetate) 10:22: 32 CDT CPT-J1100 Decadron 4mg (Dexamethasone) 10:22:32 CDT CPT-92455 Postop F/U Visit 14:37:13 CDT CPT-71896 Ankle Complete - Min 3V 17:11:58 CDT CPT-94172 Foot comp min 3V 17:11:58 CDT CPT-95652 Bladder Scan 09:56:58 CDT CPT-69424 Postop F/U Visit 09:56:58 CDT CPT-00069 Cystoscopy 09:02:42 CDT CPT-75078 Bladder Scan 09:02:42 CDT CPT-63703 Abd single AP View 16:00:35 CDT CPT-68345 Administration single or combination vaccine inc oral 10 :15:43 CDT CPT-86682 Influenza split virus > age 3 10:15:43 CDT CPT-58061 Nail Avulsion 09:24:57 CDT CPT-OV Office Visit 11:15:41 CDT CPT-16114 Abx/Therapy Injection 10:51:30 CDT CPT-J3301 Kenalog 40 mg (Triamcinolone Acetonide) 10:25:12 CDT CPT-J1100 Decadron 4mg (Dexamethasone) 10:25:12 CDT CPT-57757 Anoscopy diagnostic 10:36:12 CDT CPT-OV Office Visit 15:34:31 CDT CPT-21495 Abx/Therapy Injection 08:21:15 SALT OPERATOR CPT-J1885 Toradol 60 mg (Ketorolac) 10:46:35 SALT OPERATOR CPT-OV Office Visit 19:51:16 SALT OPERATOR CPT-96193 Spec Collection and Handling Fee 14:34:18 SALT OPERATOR CPT-PV Prev. 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 CPT-58528 Postop F/U Visit 15:15:14 SALT OPERATOR CPT-49793 Postop F/U Visit 14:41:43 CDT CPT-64253 Postop F/U Visit 15:47:46 CDT CPT-OV Office Visit 15:27:23 CDT CPT-OV Office Visit 17:20:34 CDT CPT-13807 Abx/Therapy Injection 15:05:57 CDT CPT-J1100 Decadron 8mg (Dexamethasone) 14:44:57 CDT CPT-J1040 Depo Medrol 80 mg (Methyl Prednisolone Acetate) 14:44: 57 CDT CPT-JTINJ Joint Injection 10:17:37 CDT CPT-75764 Administration 2+ single or combination vaccines inc oral 13:01:46 SALT OPERATOR CPT-49382 Administration single or combination vaccine inc oral 13 :01:46 SALT OPERATOR CPT-08073 Pneumovax 13:01:46 SALT OPERATOR CPT-34025 Influenza split virus > age 3 13:01:46 SALT OPERATOR CPT-54295 Administration single or combination vaccine inc oral 08 :56:49 CDT CPT-13185 Tdap 08:56:49 CDT
--- OUTSIDE RECORDS SUMMARY | 2017-03-21 20:23 | XMS REPORT | Clinical Summary ---
Author Author Admin, MARGRET Organization [facility] Address Unknown Phone Unavailable Allergies, Adverse Reactions, Alerts Allergy Name Reaction Description Start Date Severity Status Provider VALENTIN Critical Active Rodrigo Montemayorl SECURITIES RESEARCH ANALYST CHLORHEXIDINE GLUCONATE tongue and gums swollen Critical Active Hoa Kabaford RMA NORFLEX Rash Critical Active Rowenaina Farshadzell SECURITIES RESEARCH ANALYST TRAZODONE HCL sees things Critical Active Dewayne [...] USE OF OTHER MEDICATIONS V58.69 Resolved Yolande Lindsya MD PhD Long-term (current) use of other [...] of 412 Active Hoa Otto [facility] Old myocardial infarction Pelvic pain 789.09 Resolved [...] and of unspecified site Anemia 285.9 Active Gba Padron MD Anemia, unspecified Conjunctivitis 372.30 Resolved [...] EXAMINATION ICD-V72.31 Inactive Yolande Lindsay MD PhD GERD ICD-530.81 Inactive Todd Callaway MD FISSURE, ANAL ICD-565.0 [...] DERMATITIS ICD-692.6 Inactive Yolande Lindsay MD PhD GERD ICD-530.81 Inactive Yolande Lindsay MD PhD 07/16 MUSCLE PAIN ICD-729.1 Inactive Yolande Lindsay MD PhD INGROWN TOENAIL [...] acute ICD-461.9 Inactive Yolande Lindsay MD PhD RECTAL BLEEDING ICD-569.3 Inactive Yolande Lindsay MD PhD ANGIOEDEMA ICD-995.1 Inactive Yolande Lindsay MD PhD Flank pain [...] 1 tab by mouth twice daily TRIMETHOPRIM-SULFAMETHOXAZOLE 39639260378 Active Tisha Lambert APRN Active ADVAIR DISKUS 250-50 MCG/DOSE AEPB 1 puff BID FLUTICASONE-SALMETEROL 10845658158 No Longer Active Todd Callaway MD Active ONDANSETRON 4 MG TBDP 1 q4h PRN nausea ONDANSETRON 60184012593 No Longer Active LONNIE Iglesias Active FISH OIL 1000 MG CAPS 3 pills daily OMEGA-3 FATTY ACIDS 63128169893 No Longer Active LONNIE Iglesias Active CETIRIZINE HCL 10 MG ORAL TABS 1 po qd PRN Allergies CETIRIZINE HCL 62859593964 Active Gab Padron MD Active CLARITIN 10 MG TAB 1 tablet by mouth daily as needed for allergies LORATADINE 01678788738 No Longer Active Gab Padron MD Active PREDNISONE 20 MG TAB take 3 tabs daily for 3 days, 2 tabs daily for 3 days, 1 tab daily for 3 days, 1/2 tab daily for 3 days PREDNISONE 42923448809 No Longer Active Tisha Lambert APRN Active TRAMADOL HCL 50 MG TABS 1 tab po every 6 hrs prn pain TRAMADOL HCL 20913516893 Active Gab Padron MD Active PREDNISONE 20 MG TAB 2 tabs daily for 3 days, 1 tab daily for 3 days, 1/2 tab daily for 2 days PREDNISONE 32173483973 No Longer Active Gab Padron MD Active ZOFRAN ODT 4 MG TBDP 1 po q6hr PRN Nausea ONDANSETRON 37992477277 Active Gab Padron MD Active IBUPROFEN 600 MG TAB 1 tablet by mouth every 6 hours for 7 days, then 1 tablet every 6 hours as needed. Take with food IBUPROFEN 69288116936 Active Rodrigo Sarah APRN Active BACTRIM DS 800-160 MG TAB 1 tab by mouth twice daily TRIMETHOPRIM-SULFAMETHOXAZOLE 11809710934 No Longer Active Gab Padron MD Active LEVOTHYROXINE SODIUM 75 MCG TABS Take 1 tab daily LEVOTHYROXINE SODIUM 77174160109 No Longer Active Mariana Cuadra [facility] Active SYNTHROID 88 MCG ORAL TABS Take one by mouth daily LEVOTHYROXINE SODIUM 38216796106 Active Gab Padron MD Active CHERATUSSIN AC 100-10 MG/5ML SYRP 1 tsp by mouth every 4 hours as needed for cough GUAIFENESIN-CODEINE 96225982972 No Longer Active Gab Padron MD Active POLYTRIM 31119-6.1 UNIT/ML-% SOLN 1 gtt to affected eye q3h x 7 days POLYMYXIN B-TRIMETHOPRIM 51035654005 No Longer Active Gab Padron MD Active FLUTICASONE PROPIONATE 50 MCG/ACT SUSP 1 to 2 sprays each nostril daily 04/21 FLUTICASONE PROPIONATE 27968054515 No Longer Active Gab Padron MD Active TRILEPTAL 600 MG TABS Take one 1 tablet in Am and 1 tablet at night OXCARBAZEPINE 59797110994 Active Gab Padron MD Active CEFDINIR 300 MG CAPS 1 po BID x 10 days CEFDINIR 58216978298 No Longer Active Rodrigo Sarah APRN Active CEFTIN 500 MG TAB 1 twice a day CEFUROXIME AXETIL 99356351576 No Longer Active Gab Padron MD Active AZITHROMYCIN 250 MG TABS 2 po qd x 1 day, then 1 po qd x 4 days AZITHROMYCIN 23392529913 No Longer Active Rodrigo Sarah APRN Active OXYCODONE HCL 5 MG ORAL CAPS 1 TAB PO Q HS OXYCODONE HCL 99692796435 No Longer Active Rodrigo Sarah APRN Active NIASPAN 500 MG ORAL CR-TABS 1 pill nightly x 1 week, then 2 pills nightly x 1 week, then 3 pills nightly x 1 week, then 4 pills nightly NIACIN (ANTIHYPERLIPIDEMIC) 72753016972 No Longer Active Rodirgo Sarah APRN Active NIACIN 500 MG TABS 1 pill by mouth nightly x 1 week, then 2 pills x 1 week, then 3 pills x 1 week, then 4 pills nightly - take after evening meal, with applesauce or an apple NIACIN 62715634743 No Longer Active Yolande Lindsay MD PhD Active TRIAMCINOLONE ACETONIDE 0.1 % CREA apply bid sparingly to rash TRIAMCINOLONE ACETONIDE 95906813505 Active Yolande Lindsay MD PhD Active FUROSEMIDE 20 MG TAB 1 tablet by mouth daily FUROSEMIDE 60539261759 Active Gab Padron MD Active LISINOPRIL 20 MG ORAL TABS 1 tab by mouth daily LISINOPRIL 52461214303 Active Gab Padron MD Active FUROSEMIDE 20 MG TABS 1 pill by mouth daily, for edema FUROSEMIDE 33661357712 No Longer Active Yolande Lindsay MD PhD Active ATORVASTATIN CALCIUM 10 MG TABS 1 pill by mouth daily, for cholesterol 09/06 ATORVASTATIN CALCIUM 91402104889 Active Gab Padron MD Active CALCIUM 600+D PLUS MINERALS 600-400 MG-UNIT ORAL CHEW 1 tab by mouth daily CALCIUM CARBONATE-VIT D-MIN 20285078613 No Longer Active Yolande Lindsay MD PhD Active CYCLOBENZAPRINE HCL 10 MG TABS 1 tablet by mouth three times daily as needed for muscle spasm/pain CYCLOBENZAPRINE HCL 28503870559 Active Yolande Lindsay MD PhD Active ADULT ASPIRIN EC LOW STRENGTH 81 MG TBEC Take 1 tablet by mouth daily 2014 ASPIRIN 10886703001 No Longer Active Yolande Lindsay MD PhD Active ZOFRAN ODT 4 MG TBDP 1 pill dissolved by mouth every 4 hours if needed for nausea ONDANSETRON 40335757727 No Longer Active Yolande Lindsay MD PhD Active CEFTIN 500 MG TAB 1 twice a day CEFUROXIME AXETIL 28963488976 No Longer Active Yolande Lindsay MD PhD Active ALBUTEROL SULFATE 0.083 % NEBU SOLN one vial per nebulizer every 4-6 hours as needed ALBUTEROL SULFATE 44468625673 No Longer Active Alexis Ordaz MD Active DOXYCYCLINE HYCLATE 100 MG CAP 1 cap by mouth twice daily DOXYCYCLINE HYCLATE 88502897570 No Longer Active Yolande Lindsay MD PhD Active CYCLOBENZAPRINE HCL 10 MG TABS 1/2 - 1 tab by mouth three times daily if needed for spasms/pain CYCLOBENZAPRINE HCL 07811581534 No Longer Active Yolande Lindsay MD PhD Active AZITHROMYCIN 250 MG TABS 2 pills on day 1, then 1 pill daily x 4 days AZITHROMYCIN 69209803578 No Longer Active Yolande Lindsay MD PhD Active XOPENEX 1.25 MG/3ML NEBU 1 neb every 4 hours if needed for cough/congestion LEVALBUTEROL HCL 57665807334 No Longer Active Yolande Lindsay MD PhD Active DOXYCYCLINE HYCLATE 100 MG TAB 1 tab twice a day for 14 days 2013 DOXYCYCLINE HYCLATE 43266077328 No Longer Active Yolande Lindsay MD PhD Active PREVACID 30 MG CPDR Take 1 tablet by mouth daily-PRN LANSOPRAZOLE 57455055034 No Longer Active Yolande Lindsay MD PhD Active PA VITAMIN D-3 2000 UNIT CAPS 1 CAP PO DAILY CHOLECALCIFEROL 19721358942 No Longer Active Yolande Lindsay MD PhD Active CEFDINIR 300 MG CAPS by mouth twice a day CEFDINIR 48687313267 No Longer Active Gab Padron MD Active TOPAMAX 50 MG TABS 1 PO twice daily TOPIRAMATE 23654037854 Active Yolande Lindsay MD PhD Active AZITHROMYCIN 250 MG TABS 2 po qd x 1 day, then 1 po qd x 4 days AZITHROMYCIN 67492219651 No Longer Active Yolande Lindsay MD PhD Active DICLOFENAC SODIUM 75 MG TBEC 1 tablet by q 12 hours PRN headaches DICLOFENAC SODIUM 86317934163 No Longer Active Yolande Lindsay MD PhD Active FLONASE 50 MCG/ACT SUSP 1 spray each nostril am and hs FLUTICASONE PROPIONATE 08827506385 No Longer Active Todd Callaway MD Active ANUSOL-HC 25 MG SUPPOSITORY 1 rectally twice a day as needed for hemorrhoids HYDROCORTISONE JAYDEN (RECTAL) 33546198951 No Longer Active Yolande Lindsay MD PhD Active ANUSOL-HC 25 MG SUPPOSITORY 1 suppository rectally each evening as needed for anal fissure HYDROCORTISONE JAYDEN (RECTAL) 06107990487 No Longer Active LONNIE Iglesias Active VALIUM 5 MG TAB 1 po 30 minutes prior to your MRI DIAZEPAM 85311852587 No Longer Active LONNIE Iglesias Active METHOCARBAMOL 750 MG TABS 1 PO QID PRN METHOCARBAMOL 89032128777 No Longer Active Daphne Wetzel APRN Active NITROSTAT 0.4 MG SUBL as directed NITROGLYCERIN 06252618666 No Longer Active Rodrigo Sarah APRN Active ROBAXIN-750 750 MG TABS 2 four times a day for 3 days as needed for muscle spasm, then 1 four times a day as needed METHOCARBAMOL 30427959853 No Longer Active Rodrigo Sarah APRN Active HYDROCODONE-ACETAMINOPHEN 5-325 MG TABS 1 q 4-6 hrs prn HYDROCODONE-ACETAMINOPHEN 74305531928 No Longer Active Rodrigo Sarah SECURITIES RESEARCH ANALYST Active VERAPAMIL HCL CR 180 MG CR-TABS TAKE 1 TAB DAILY VERAPAMIL HCL 10196199124 No Longer Active Yolande Lindsay MD PhD Active BACTRIM DS 800-160 MG TAB 1 tab by mouth twice daily TRIMETHOPRIM-SULFAMETHOXAZOLE 39110477738 No Longer Active Yolande Lindsay MD PhD Active NEXIUM 40 MG PACK 1 by mouth daily ESOMEPRAZOLE MAGNESIUM 57343057314 No Longer Active Des Hines MD Active EPIPEN 2-CHARLETTE 0.3 MG/0.3ML OMARI as need for allergic reaction EPINEPHRINE 18808422813 Active Yolande Lindsay MD PhD Active NEXIUM 40 MG CPDR 1 PO Q D DAY ESOMEPRAZOLE MAGNESIUM 01359924211 No Longer Active Sadia Perry RN Active NEXIUM 40 MG PACK 1 by mouth daily NEXIUM 40 MG PACK ESOMEPRAZOLE MAGNESIUM Inactive VERAPAMIL HCL CR 180 MG CR-TABS TAKE 1 TAB DAILY VERAPAMIL HCL CR 180 MG CR-TABS VERAPAMIL HCL Inactive HYDROCODONE-ACETAMINOPHEN 5-325 MG TABS 1 q 4-6 hrs prn HYDROCODONE-ACETAMINOPHEN 5-325 MG TABS 981125 HYDROCODONE-ACETAMINOPHEN Inactive ROBAXIN-750 750 MG TABS 2 four times a day for 3 days as needed for muscle spasm, then 1 four times a day as needed ROBAXIN-750 750 MG TABS 588758 METHOCARBAMOL Inactive NITROSTAT 0.4 MG SUBL as directed NITROSTAT 0.4 MG SUBL 673523 NITROGLYCERIN Inactive METHOCARBAMOL 750 MG TABS 1 PO QID PRN METHOCARBAMOL 750 MG TABS 914627 METHOCARBAMOL Inactive VALIUM 5 MG TAB 1 po 30 minutes prior to your MRI VALIUM 5 MG TAB 184473 DIAZEPAM Inactive ANUSOL-HC 25 MG SUPPOSITORY 1 suppository rectally each evening as needed for anal fissure ANUSOL-HC 25 MG SUPPOSITORY 6309626 HYDROCORTISONE JAYDEN (RECTAL) Inactive ANUSOL-HC 25 MG SUPPOSITORY 1 rectally twice a day as needed for hemorrhoids ANUSOL-HC 25 MG SUPPOSITORY 4020740 HYDROCORTISONE JAYDEN (RECTAL) Inactive FLONASE 50 MCG/ACT SUSP 1 spray each nostril am and hs FLONASE 50 MCG/ACT SUSP 2708083 FLUTICASONE PROPIONATE Inactive DICLOFENAC SODIUM 75 MG TBEC 1 tablet by q 12 hours PRN headaches DICLOFENAC SODIUM 75 MG TBEC 115106 DICLOFENAC SODIUM Inactive PA VITAMIN D-3 2000 UNIT CAPS 1 CAP PO DAILY PA VITAMIN D-3 2000 UNIT CAPS CHOLECALCIFEROL Inactive PREVACID 30 MG CPDR Take 1 tablet by mouth daily-PRN PREVACID 30 MG CPDR 695791 LANSOPRAZOLE Inactive DOXYCYCLINE HYCLATE 100 MG TAB 1 tab twice a day for 14 days 2013 DOXYCYCLINE HYCLATE 100 MG TAB 4102894 DOXYCYCLINE HYCLATE Inactive XOPENEX 1.25 MG/3ML NEBU 1 neb every 4 hours if needed for cough/congestion XOPENEX 1.25 MG/3ML NEBU 988991 LEVALBUTEROL HCL Inactive CYCLOBENZAPRINE HCL 10 MG TABS 1/2 - 1 tab by mouth three times daily if needed for spasms/pain CYCLOBENZAPRINE HCL 10 MG TABS 754652 CYCLOBENZAPRINE HCL Inactive ALBUTEROL SULFATE 0.083 % NEBU SOLN one vial per nebulizer every 4-6 hours as needed ALBUTEROL SULFATE 0.083 % NEBU SOLN 928516 ALBUTEROL SULFATE Inactive CEFTIN 500 MG TAB 1 twice a day CEFTIN 500 MG TAB 230570 CEFUROXIME AXETIL Inactive ZOFRAN ODT 4 MG TBDP 1 pill dissolved by mouth every 4 hours if needed for nausea ZOFRAN ODT 4 MG TBDP 343611 ONDANSETRON Inactive ADULT ASPIRIN EC LOW STRENGTH 81 MG TBEC Take 1 tablet by mouth daily 2014 ADULT ASPIRIN EC LOW STRENGTH 81 MG TBEC 037825 ASPIRIN Inactive CALCIUM 600+D PLUS MINERALS 600-400 [...] or an apple NIACIN 500 MG TABS 347927 NIACIN Inactive NIASPAN 500 MG ORAL CR-TABS 1 pill nightly x 1 week, then 2 pills nightly x 1 week, then 3 pills nightly x 1 week, then 4 pills nightly NIASPAN 500 MG ORAL CR-TABS NIACIN (ANTIHYPERLIPIDEMIC) Inactive OXYCODONE HCL 5 MG ORAL CAPS 1 TAB PO Q HS OXYCODONE HCL 5 MG ORAL CAPS 0745581 OXYCODONE HCL Inactive FLUTICASONE PROPIONATE 50 MCG/ACT SUSP 1 to 2 sprays each nostril daily 04/21 FLUTICASONE PROPIONATE 50 MCG/ACT SUSP 8828229 FLUTICASONE PROPIONATE Inactive POLYTRIM 63841-4.1 UNIT/ML-% SOLN 1 gtt to affected eye q3h x 7 days POLYTRIM 21733-4.1 UNIT/ML-% SOLN 235393 POLYMYXIN B- TRIMETHOPRIM Inactive CHERATUSSIN AC 100-10 MG/5ML SYRP 1 tsp by mouth every 4 hours as needed for cough CHERATUSSIN AC 100-10 MG/5ML SYRP 117118 GUAIFENESIN-CODEINE Inactive LEVOTHYROXINE SODIUM 75 MCG TABS Take 1 tab daily LEVOTHYROXINE SODIUM 75 MCG TABS 208096 LEVOTHYROXINE SODIUM Inactive CLARITIN 10 MG TAB 1 tablet by mouth daily as needed for allergies CLARITIN 10 MG TAB 844022 LORATADINE Inactive FISH OIL 1000 MG CAPS 3 pills daily FISH OIL 1000 MG CAPS OMEGA-3 FATTY ACIDS Inactive ONDANSETRON 4 MG TBDP 1 q4h PRN nausea ONDANSETRON 4 MG TBDP 261280 ONDANSETRON Inactive ADVAIR DISKUS 250-50 MCG/DOSE AEPB 1 puff BID ADVAIR DISKUS 250-50 MCG/DOSE AEPB FLUTICASONE-SALMETEROL Inactive BACTRIM DS 800-160 MG TAB 1 tab by mouth twice daily BACTRIM DS 800-160 MG TAB 498400 TRIMETHOPRIM-SULFAMETHOXAZOLE Inactive AZITHROMYCIN 250 MG TABS 2 po qd x 1 day, then 1 po qd x 4 days AZITHROMYCIN 250 MG TABS 3804287 AZITHROMYCIN Inactive CEFDINIR 300 MG CAPS by mouth twice a day CEFDINIR 300 MG CAPS 940504 CEFDINIR Inactive AZITHROMYCIN 250 MG TABS 2 pills on day 1, then 1 pill daily x 4 days AZITHROMYCIN 250 MG TABS 1475110 AZITHROMYCIN Inactive DOXYCYCLINE HYCLATE 100 MG CAP 1 cap by mouth twice daily DOXYCYCLINE HYCLATE 100 MG CAP 5226468 DOXYCYCLINE HYCLATE Inactive FUROSEMIDE 20 MG TABS 1 pill by mouth daily, for edema FUROSEMIDE 20 MG TABS 346737 FUROSEMIDE Inactive AZITHROMYCIN 250 MG TABS 2 po qd x 1 day, then 1 po qd x 4 days AZITHROMYCIN 250 MG TABS 1317388 AZITHROMYCIN Inactive CEFTIN 500 MG TAB 1 twice a day CEFTIN 500 MG TAB 315558 CEFUROXIME AXETIL Inactive CEFDINIR 300 MG CAPS 1 po BID x 10 days CEFDINIR 300 MG CAPS 172443 CEFDINIR Inactive BACTRIM DS 800-160 MG TAB 1 tab by mouth twice daily BACTRIM DS 800-160 MG TAB 583014 TRIMETHOPRIM-SULFAMETHOXAZOLE Inactive PREDNISONE 20 MG TAB 2 tabs daily for 3 days, 1 tab daily for 3 days, 1/2 tab daily for 2 days PREDNISONE 20 MG TAB 869967 PREDNISONE Inactive PREDNISONE 20 MG TAB take 3 tabs daily for 3 days, 2 tabs daily for 3 days, 1 tab daily for 3 days, 1/2 tab daily for 3 days PREDNISONE 20 MG TAB 318557 PREDNISONE Inactive Immunizations Vaccine Administration Date Value Standard Description Seasonal influenza vaccine, injectable, containing preservative, for > 3 years old (Afluria, FluLaval, Fluzone, Fluvirin, Fluarix, Agriflu(>=18 yo)) Fluzone (>3 yrs.) [XLS991] Influenza, seasonal, injectable influenza immunization (Flu Vax) has been administered Influenza - Unspecified Formulation [CVX88] influenza virus vaccine, unspecified formulation pneumococcal immunization administered Pneumovax 23 [CVX33] pneumococcal polysaccharide vaccine, 23 valent Seasonal influenza vaccine, injectable, containing preservative, for > 3 years old (Afluria, FluLaval, Fluzone, Fluvirin, Fluarix, Agriflu(>=18 yo)) Fluzone (>3 yrs.) [ELA306] Influenza, seasonal, injectable dT (Diphtheria and Tetanus) booster given given Td(adult) unspecified formulation Boostrix (Tetanus toxoid, reduced diphtheria toxoid and acellular pertussis vaccine, adsorbed), booster Boostrix [HHD282] tetanus toxoid, reduced diphtheria toxoid, and acellular pertussis vaccine, adsorbed Vital Signs Date Name Value Unit Range Description blood pressure, diastolic - 8462-4 88 mm[Hg] BP weldon blood pressure, systolic - 8480-6 154 mm[Hg] BP sys height E&M - 8302-2 52.5 [in_us] Bdy height pulse rate E&M - 8867-4 64 /min Heart rate temperature E&M 99 [degF] Body temperature weight E&M - 3141-9 252.50 [lb_av] Weight Measured blood pressure, diastolic - 8462-4 70 mm[Hg] BP weldon blood pressure, systolic - 8480-6 130 mm[Hg] BP sys pulse rate E&M - 8867-4 78 /min Heart rate temperature E&M 98.3 [...] PANEL - Chemistry cholesterol, serum 166 mg/dL 833-790 3555/12/06 triglyceride, serum, fasting 86 mg/dL 30-200 HDL [...] Comp. Metabolic Panel - Chemistry sodium, serum 142 mmol/L 706-729 7116/07/18 carbon dioxide, venous blood 27.8 mmol/L 21.0-32.0 [...] Negative Negative nitrite, urine, semiquantitative Negative Negative pH, urine, semiquantitative 6.5 5.0-8.5 specific gravity, urine 1.020 1.000-1.030 appearance, urine Clear Clear urine color Yellow Colorless;Lightyellow;Straw;Yellow glucose, urine, semiquantitative Negative Negative ketones, urine, by test strip Negative Negative bilirubin, urine Negative Negative Office Visit: 6 MO F/U [...] bilirubin, urine negative glucose, urine, semiquantitative negative nitrite, urine, semiquantitative negative urobilinogen, urine, semiquantitative (dipstick) 0.2 protein, urine, semiquantitative (dipstick) negative urine color yellow appearance, urine clear leukocyte esterase, urine, by dipstick negative pH, urine, semiquantitative 5 specific gravity, urine 1.005 urinalysis, routine Clean Catch culture status No Office Visit: Follow up IC - Chemistry [...] negative Encounters Code Encounter Date Provider Facility CPT-02324 Level 3 Est. Patient 14:46:09 CDT Tisha Lambert APRN [facility] CPT-81528 Level 4 New Patient 16:13:15 CDT Todd Callaway MD [facility] CPT-85498 Level 4 Est. Patient 13:18:33 CDT Gab Padron MD [facility] CPT-81967 Level 3 Est. Patient 15:20:50 CDT Jared Og MD [facility] CPT-34707 Level 3 Est. Patient 17:43:55 NOTE SPECIALIST Gab Padron MD [facility] CPT-06902 Level 3 Est. Patient 17:07:49 NOTE SPECIALIST Jared Og MD [facility] CPT-23435 Level 4 Est. Patient 19:55:18 NOTE SPECIALIST Jared Og MD [facility] CPT-17530 Level 3 Est. Patient 20:13:34 NOTE SPECIALIST Jared Og MD [facility] CPT-87134 Level 4 Est. Patient 16:31:27 CDT Gab Padron MD [facility] CPT-59107 Level 2 Est. Patient 12:23:38 CDT Jared Og MD [facility] CPT-06723 Level 3 Est. Patient 11:01:51 CDT Gab Padron MD [facility] CPT-96073 Level 3 Est. Patient 15:27:02 CDT Jared Og MD [facility] CPT-94855 Level 4 Est. Patient 09:25:27 CDT Gab Padron MD [facility] CPT-25043 Level 3 Est. Patient 10:29:41 CDT Rodrigo Sarah [facility] CPT-25535 Level 4 Est. Patient 17:51:05 CDT Gab Padron MD [facility] CPT-75950 Level 3 Est. Patient 14:18:08 CDT Gab Padron MD [facility] CPT-76640 Level 4 Est. Patient 10:18:54 CDT Gab Pdaron MD [facility] CPT-41625 Level 3 Est. Patient 11:30:07 CDT Rodrigo Sarah [facility] CPT-58548 Level 4 Est. Patient 21:02:30 NOTE SPECIALIST Gab Padron MD [facility]-79334 Level 3 Est. Patient 11:02:19 NOTE SPECIALIST Gab Padron MD [facility]-07412 Level 4 Est. Patient 22:24:31 NOTE SPECIALIST Gab Padron MD [facility]-93661 Level 3 Est. Patient 18:33:46 NOTE SPECIALIST Gab Padron MD [facility]-92059 Level 3 Est. Patient 16:19:11 CDT Yolande Lindsay MD [facility]-40712 Level 3 Est. Patient 18:59:14 CDT Yolande Lindsay MD [facility]-13384 Level 4 Est. Patient 21:29:26 CDT Yolande Lindsay MD [facility]-44331 Level 3 Est. Patient 07:37:45 CDT Yolande Lindsay MD [facility]-17875 Level 3 Est. Patient 17:03:46 CDT Yolande Lindsay MD [facility]-37959 Level 4 Est. Patient 20:02:13 NOTE SPECIALIST Yolande Lindsay MD [facility]-26591 Level 3 Est. Patient 16:02:07 NOTE SPECIALIST Alexis Ordaz MD [facility]-52850 Level 3 Est. Patient 12:41:24 NOTE SPECIALIST Yolande Lindsay MD PhD [facility] CPT-32416 Level 3 Est. Patient 15:41:20 NOTE SPECIALIST Yolande Lindsay MD [facility]-74964 Level 3 Est. Patient 13:20:02 NOTE SPECIALIST Yolande Lindsay MD [facility]-93740 Level 3 Est. Patient 15:00:38 CDT Jared Og MD [facility]-61522 Level 3 Est. Patient 10:22:32 CDT Yolande Lindsay MD [facility]-31025 Level 3 Est. Patient 17:12:58 CDT Yolande Lindsay MD [facility]-24279 Level 4 Est. Patient 13:30:58 CDT Yolande Lindsay MD [facility]-55367 Level 4 New Patient 09:02:42 CDT Jared Og MD [facility]-93647 Level 3 Est. Patient 08:19:07 CDT Yolande Lindsay MD [facility]-69085 Level 3 Est. Patient 12:00:13 NOTE SPECIALIST Gab Padron MD [facility]-08288 Level 3 Est. Patient 16:15:23 NOTE SPECIALIST Yolande Lindsay MD [facility]-68777 Level 2 Est. Patient 19:47:15 CDT Yolande Lindsay MD [facility]-16477 Level 3 Est. Patient 21:38:31 CDT Yolande Lindsay MD [facility]-96503 Level 3 Est. Patient 10:25:12 CDT Adiel PERAZA [facility]-41560 Level 4 Est. Patient 10:51:58 CDT Yolande Lindsay MD [facility]-12403 Level 3 Est. Patient 14:04:55 NOTE SPECIALIST Rodrigo Sarah [facility]-76852 Level 3 Est. Patient 10:46:35 NOTE SPECIALIST Rodrigo Sarah [facility]-78925 Level 3 Est. Patient 14:24:37 NOTE SPECIALIST Yolande Lindsay MD [facility]-60898 Level 3 Est. Patient 17:41:58 NOTE SPECIALIST Yolande Lindsay MD PhD [facility] CPT-53752 Level 2 Est. Patient 22:01:41 NOTE SPECIALIST Rodrigo Sarah [facility] CPT-14620 Level 2 Est. Patient 22:01:11 NOTE SPECIALIST Rodrigo Sarah [facility] CPT-62756 Level 3 Est. Patient 10:12:29 NOTE SPECIALIST Rodrigo Sarah [facility] CPT-16902 Level 3 Est. Patient 11:05:44 CDT Alexis Ordaz MD [facility] CPT-16152 Level 3 Est. Patient 14:57:20 CDT Yolande Lindsay MD [facility]-53326 Level 3 Est. Patient 14:40:57 CDT Yolande Lindsay MD [facility]-60321 Level 3 Est. Patient 20:55:40 CDT Yolande Lindsay MD [facility] CPT-05250 Level 3 Est. Patient 12:42:38 NOTE SPECIALIST Yolande Lindsay MD [facility]-66641 Level 3 Est. Patient 11:54:49 NOTE SPECIALIST Des Hines MD [facility] CPT-37568 Level 3 Est. Patient 17:06:38 CDT Dewayne PERAZA [facility] Procedures Code Procedure Name Date Entry Date Standard Description CPT-J2930 Solu Medrol 125 mg (Methyl Prednisolone Sodium Succinate) 13:19:02 CDT CPT-86374 Abx/Therapy Injection 13:19:02 CDT CPT-J2930 Solu Medrol 125 mg (Methyl Prednisolone Sodium Succinate) 13:05:03 CDT CPT-88651 Hip, complete, 2-3 views - XRAY USE ONLY 17:19:04 NOTE SPECIALIST CPT-80845 Venipuncture Draw Fee 08:37:59 NOTE SPECIALIST CPT-40517 Liver Profile - LAB USE ONLY 08:37:59 NOTE SPECIALIST CPT-97527 Lipid - LAB USE ONLY 08:37:58 NOTE SPECIALIST CPT-27690 First Vx - Ix admin via ID IM or jet injects without counseling by physician 11:52:31 CDT CPT-75899 Fluzone Preservative Free Intramuscular Suspension 11:52 :31 CDT CPT-84524 Foot, left, comp min 3V - XRAY USE ONLY 09:24:54 CDT CPT-45603 Abd single AP View - XRAY USE ONLY 11:16:17 CDT CPT-64879 T spine AP/ Lat - XRAY USE ONLY 09:34:21 CDT CPT-18678 Chest 2V Frontal and Lat - XRAY USE ONLY 10:48:51 CDT CPT-88072 LS spine comp w obliq 13:28:00 NOTE SPECIALIST CPT-J1040 Depo Medrol 80 mg (Methyl Prednisolone Acetate) 10:51: 28 NOTE SPECIALIST CPT-J1100 Decadron 8mg (Dexamethasone) 10:51:28 NOTE SPECIALIST CPT-68481 Abx/Therapy Injection 10:51:28 NOTE SPECIALIST CPT-J1100 Decadron 8mg (Dexamethasone) 21:02:30 NOTE SPECIALIST CPT-J1040 Depo Medrol 80 mg (Methyl Prednisolone Acetate) 21:02: 30 NOTE SPECIALIST [id number] Event Monitor - MC Transmission 09:12:32 CDT 08/06 [id number] Event Monitor - MC review and interp 09:12:32 CDT [id number] Event Monitor - MC recording 09:12:32 CDT CPT-37751 EKG Trac and Interp 16:50:22 CDT CPT-J1030 Depo Medrol 40 mg (Methyl Prednisolone Acetate) 17:05: 54 CDT CPT-J1100 Decadron 4mg (Dexamethasone) 17:05:54 CDT CPT-10166 Abx/Therapy Injection 17:05:54 CDT CPT-J1100 Decadron 4mg (Dexamethasone) 16:55:28 CDT CPT-J1030 Depo Medrol 40 mg (Methyl Prednisolone Acetate) 16:55: 28 CDT CPT-60435 Ankle Complete - Min 3V 15:58:50 CDT CPT-80357 Knee 3V 15:58:50 CDT CPT-27943 Hip comp min 2V 15:58:50 CDT CPT-J2270 Morphine Sulfate 10 mg 14:25:44 NOTE SPECIALIST CPT-J2550 Phenergan 12.5 mg (Promethazine) 14:25:44 NOTE SPECIALIST CPT-61576 Abx/Therapy Injection 14:25:44 NOTE SPECIALIST CPT-J2550 Phenergan 12.5 mg (Promethazine) 14:08:03 NOTE SPECIALIST CPT-J2270 Morphine Sulfate 10 mg 14:08:03 NOTE SPECIALIST CPT-68023 Bladder Scan 15:00:38 CDT CPT-TCMM Transitional Care Mgmt-Moderate 09:52:22 CDT CPT-J1030 Depo Medrol 40 mg (Methyl Prednisolone Acetate) 10:55: 18 CDT CPT-J1100 Decadron 4mg (Dexamethasone) 10:55:18 CDT CPT-27048 Abx/Therapy Injection 10:55:18 CDT CPT-J1030 Depo Medrol 40 mg (Methyl Prednisolone Acetate) 10:22: 32 CDT CPT-J1100 Decadron 4mg (Dexamethasone) 10:22:32 CDT CPT-10955 Postop F/U Visit 14:37:13 CDT CPT-41509 Ankle Complete - Min 3V 17:11:58 CDT CPT-79291 Foot comp min 3V 17:11:58 CDT CPT-52886 Bladder Scan 09:56:58 CDT CPT-39008 Postop F/U Visit 09:56:58 CDT CPT-91058 Cystoscopy 09:02:42 CDT CPT-08524 Bladder Scan 09:02:42 CDT CPT-66495 Abd single AP View 16:00:35 CDT CPT-99869 Administration single or combination vaccine inc oral 10 :15:43 CDT CPT-94336 Influenza split virus > age 3 10:15:43 CDT CPT-77212 Nail Avulsion 09:24:57 CDT CPT-OV Office Visit 11:15:41 CDT CPT-74620 Abx/Therapy Injection 10:51:30 CDT CPT-J3301 Kenalog 40 mg (Triamcinolone Acetonide) 10:25:12 CDT CPT-J1100 Decadron 4mg (Dexamethasone) 10:25:12 CDT CPT-69147 Anoscopy diagnostic 10:36:12 CDT CPT-OV Office Visit 15:34:31 CDT CPT-24821 Abx/Therapy Injection 08:21:15 NOTE SPECIALIST CPT-J1885 Toradol 60 mg (Ketorolac) 10:46:35 NOTE SPECIALIST CPT-OV Office Visit 19:51:16 NOTE SPECIALIST CPT-75474 Spec Collection and Handling Fee 14:34:18 NOTE SPECIALIST CPT-PV Prev. Care Visit 14:19:18 NOTE SPECIALIST CPT-80546 Postop F/U Visit 14:47:51 NOTE SPECIALIST CPT-06088 Postop F/U Visit 15:15:14 NOTE SPECIALIST CPT-62885 Postop F/U Visit 14:41:43 CDT CPT-77407 Postop F/U Visit 15:47:46 CDT CPT-OV Office Visit 15:27:23 CDT CPT-OV Office Visit 17:20:34 CDT CPT-78037 Abx/Therapy Injection 15:05:57 CDT CPT-J1100 Decadron 8mg (Dexamethasone) 14:44:57 CDT CPT-J1040 Depo Medrol 80 mg (Methyl Prednisolone Acetate) 14:44: 57 CDT CPT-JTINJ Joint Injection 10:17:37 CDT CPT-97610 Administration 2+ single or combination vaccines inc oral 13:01:46 NOTE SPECIALIST CPT-29315 Administration single or combination vaccine inc oral 13 :01:46 NOTE SPECIALIST CPT-84232 Pneumovax 13:01:46 NOTE SPECIALIST CPT-25270 Influenza split virus > age 3 13:01:46 NOTE SPECIALIST CPT-77615 Administration single or combination vaccine inc oral 08 :56:49 CDT CPT-11986 Tdap 08:56:49 CDT
--- OUTSIDE RECORDS SUMMARY | 2017-03-21 20:25 | XMS REPORT | Clinical Summary ---
Author Author Admin, MARGRET Organization [employer] Address Unknown Phone Unavailable Allergies, Adverse Reactions, Alerts Allergy Name Reaction Description Start Date Severity Status Provider VALENTIN Critical Active Rodrigo Montemayorl CORPORATE COUNSELOR CHLORHEXIDINE GLUCONATE tongue and gums swollen Critical Active Hoa [place]af[place] RMA NORFLEX Rash Critical Active Rowenaina Farshadzell CORPORATE COUNSELOR TRAZODONE HCL sees things Critical Active Dewayne [...] Og MD Rectocele Hematuria 599.70 Resolved Yolande Lindasy MD PhD Hematuria, unspecified Health maintenance exam [...] vitreous Myocardial infarction, hx of 412 Active [facility] Old myocardial infarction Pelvic pain 789.09 Active Yolande Lnidsay MD PhD Abdominal pain, other specified site; multiple sites Edema 782.3 Active Yolande Lindsay MD PhD Edema Rash 782.1 Active Yolande Lindsay MD PhD Rash and other nonspecific skin eruption Back pain, lumbar 724.2 Active Gab Padron MD Lumbago Cough 786.2 Active Jillina Tyrel CORPORATE COUNSELOR Cough 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 Jillina Frazellilian ZAPATAN 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 Anemia 285.9 Active Gab Padron MD Anemia, unspecified Conjunctivitis 372.30 Active Jillnacho Sarah APRN Conjunctivitis, unspecified Sinusitis 473.9 Active Jillina Frazell CORPORATE COUNSELOR Unspecified sinusitis (chronic) Nonspecific syndrome suggestive of viral illness 079.99 Active Jillina Siml CORPORATE COUNSELOR Unspecified viral infection Laryngitis 464.00 Active Jillina Farshadzell CORPORATE COUNSELOR Acute laryngitis without mention of obstruction Abdominal [...] Abdominal pain, generalized 789.07 Active Silvestrellina Siml CORPORATE COUNSELOR Abdominal pain, generalized Back pain, thoracic region, left 724.1 Active Jillina Farshadzell CORPORATE COUNSELOR Pain in thoracic spine Abdominal pain, left [...] CAV&DIGESTV SYS NEC ICD-V58.75 04/25 Inactive Yolande Lindasy MD PhD LONG-TERM (CURRENT) USE OF OTHER [...] 1/2 tab daily for 2 days PREDNISONE 46041686068 No Longer Active Gab Padron MD Active ZOFRAN ODT 4 MG TBDP 1 po q6hr PRN Nausea ONDANSETRON 27071797010 Active Jillina Frazell CORPORATE COUNSELOR Active IBUPROFEN 600 MG TAB 1 tablet by mouth every 6 hours for 7 days, then 1 tablet every 6 hours as needed. Take with food IBUPROFEN 77958209515 Active Jillina Frazell CORPORATE COUNSELOR Active BACTRIM DS 800-160 MG TAB 1 tab by mouth twice daily TRIMETHOPRIM-SULFAMETHOXAZOLE 93655258136 No Longer Active Gab Padron MD Active ADVAIR DISKUS 250-50 MCG/DOSE AEPB 1 puff BID FLUTICASONE- SALMETEROL 19878554960 Active Rodrigo Sarah APRN Active LEVOTHYROXINE SODIUM 75 MCG TABS Take 1 tab daily LEVOTHYROXINE SODIUM 46647491478 No Longer Active Mariana Cuadra RMA Active SYNTHROID 88 MCG ORAL TABS Take one by mouth daily LEVOTHYROXINE SODIUM 41171218074 Active Tisha Lambert APRN Active CHERATUSSIN AC 100-10 MG/5ML SYRP 1 tsp by mouth every 4 hours as needed for cough GUAIFENESIN-CODEINE 14001099045 No Longer Active Gab Padron MD Active POLYTRIM 64202-8.1 UNIT/ML-% SOLN 1 gtt to affected eye q3h x 7 days POLYMYXIN B-TRIMETHOPRIM 37655472792 No Longer Active Gab Padron MD Active FLUTICASONE PROPIONATE 50 MCG/ACT SUSP 1 to 2 sprays each nostril daily 04/21 FLUTICASONE PROPIONATE 96857736507 No Longer Active Gab Padron MD Active TRILEPTAL 600 MG TABS Take one 1 tablet in Am and 1 tablet at night OXCARBAZEPINE 55997149181 Active Gab Padron MD Active CEFDINIR 300 MG CAPS 1 po BID x 10 days CEFDINIR 34264155132 No Longer Active Rodrigo Sarah APRN Active CEFTIN 500 MG TAB 1 twice a day CEFUROXIME AXETIL 02660808158 No Longer Active Gab Padron MD Active AZITHROMYCIN 250 MG TABS 2 po qd x 1 day, then 1 po qd x 4 days AZITHROMYCIN 57443018367 No Longer Active Rodrigo Sarah APRN Active CLARITIN 10 MG TAB 1 tablet by mouth daily as needed for allergies LORATADINE 17307148934 Active Rodrigo Sarah APRN Active OXYCODONE HCL 5 MG ORAL CAPS 1 TAB PO Q HS OXYCODONE HCL 88812656590 No Longer Active Rodrigo Sarah APRN Active NIASPAN 500 MG ORAL CR-TABS 1 pill nightly x 1 week, then 2 pills nightly x 1 week, then 3 pills nightly x 1 week, then 4 pills nightly NIACIN (ANTIHYPERLIPIDEMIC) 48788509364 No Longer Active Rodrigo Sarah APRN Active NIACIN 500 MG TABS 1 pill by mouth nightly x 1 week, then 2 pills x 1 week, then 3 pills x 1 week, then 4 pills nightly - take after evening meal, with applesauce or an apple NIACIN 26458572090 No Longer Active Yolande Lindsay MD PhD Active FISH OIL 1000 MG CAPS 3 pills daily OMEGA-3 FATTY ACIDS 50317763639 Active Yolande Lindsay MD PhD Active TRIAMCINOLONE ACETONIDE 0.1 % CREA apply bid sparingly to rash TRIAMCINOLONE ACETONIDE 93642109829 Active Yolande Lindsay MD PhD Active FUROSEMIDE 20 MG TAB 1 tablet by mouth daily FUROSEMIDE 18559384762 Active Tisha Lambert APRN Active LISINOPRIL 20 MG ORAL TABS 1 tab by mouth daily LISINOPRIL 25700935638 Active Tisha Lambert APRN Active FUROSEMIDE 20 MG TABS 1 pill by mouth daily, for edema FUROSEMIDE 12637881220 No Longer Active Yolande Lindsay MD PhD Active ATORVASTATIN CALCIUM 10 MG TABS 1 pill by mouth daily, for cholesterol 09/06 ATORVASTATIN CALCIUM 59790570554 Active Tisha Lambert APRN Active CALCIUM 600+D PLUS MINERALS 600-400 MG-UNIT ORAL CHEW 1 tab by mouth daily CALCIUM CARBONATE-VIT D-MIN 94154414993 No Longer Active Yolande Lindsay MD PhD Active CYCLOBENZAPRINE HCL 10 MG TABS 1 tablet by mouth three times daily as needed for muscle spasm/pain CYCLOBENZAPRINE HCL 31287690564 Active Yolande Lindsay MD PhD Active ONDANSETRON 4 MG TBDP 1 q4h PRN nausea ONDANSETRON 27968529759 Active Yolande Lindsay MD PhD Active ADULT ASPIRIN EC LOW STRENGTH 81 MG TBEC Take 1 tablet by mouth daily 2014 ASPIRIN 71379928237 No Longer Active Yolande Lindsay MD PhD Active ZOFRAN ODT 4 MG TBDP 1 pill dissolved by mouth every 4 hours if needed for nausea ONDANSETRON 46221401961 No Longer Active Yolande Lindsay MD PhD Active CEFTIN 500 MG TAB 1 twice a day CEFUROXIME AXETIL 13490562562 No Longer Active Yolande Lindsay MD PhD Active ALBUTEROL SULFATE 0.083 % NEBU SOLN one vial per nebulizer every 4-6 hours as needed ALBUTEROL SULFATE 77746703678 No Longer Active Alexis Ordaz MD Active DOXYCYCLINE HYCLATE 100 MG CAP 1 cap by mouth twice daily DOXYCYCLINE HYCLATE 27461322244 No Longer Active Yolande Lindsay MD PhD Active CYCLOBENZAPRINE HCL 10 MG TABS 1/2 - 1 tab by mouth three times daily if needed for spasms/pain CYCLOBENZAPRINE HCL 66127468440 No Longer Active Yolande Lindsay MD PhD Active AZITHROMYCIN 250 MG TABS 2 pills on day 1, then 1 pill daily x 4 days AZITHROMYCIN 69500933885 No Longer Active Yolande Lindsay MD PhD Active XOPENEX 1.25 MG/3ML NEBU 1 neb every 4 hours if needed for cough/congestion LEVALBUTEROL HCL 84153363297 No Longer Active Yolande Lindsay MD PhD Active DOXYCYCLINE HYCLATE 100 MG TAB 1 tab twice a day for 14 days 2013 DOXYCYCLINE HYCLATE 56827510646 No Longer Active Yolande Lindsay MD PhD Active PREVACID 30 MG CPDR Take 1 tablet by mouth daily-PRN LANSOPRAZOLE 62682992670 No Longer Active Yolande Lindsay MD PhD Active PA VITAMIN D-3 2000 UNIT CAPS 1 CAP PO DAILY CHOLECALCIFEROL 34624266232 No Longer Active Yolande Lindsay MD PhD Active CEFDINIR 300 MG CAPS by mouth twice a day CEFDINIR 75344751566 No Longer Active Gab Padron MD Active TOPAMAX 50 MG TABS 1 PO twice daily TOPIRAMATE 98790821785 Active Yolande Lindsay MD PhD Active AZITHROMYCIN 250 MG TABS 2 po qd x 1 day, then 1 po qd x 4 days AZITHROMYCIN 64028688515 No Longer Active Yolande Lindsay MD PhD Active DICLOFENAC SODIUM 75 MG TBEC 1 tablet by q 12 hours PRN headaches DICLOFENAC SODIUM 00799293947 No Longer Active Yolande Lindsay MD PhD Active FLONASE 50 MCG/ACT SUSP 1 spray each nostril am and hs FLUTICASONE PROPIONATE 20629593889 No Longer Active Todd Callaway MD Active ANUSOL-HC 25 MG SUPPOSITORY 1 rectally twice a day as needed for hemorrhoids HYDROCORTISONE JAYDEN (RECTAL) 30693980927 No Longer Active Yolande Lindsay MD PhD Active ANUSOL-HC 25 MG SUPPOSITORY 1 suppository rectally each evening as needed for anal fissure HYDROCORTISONE JAYDEN (RECTAL) 21932079795 No Longer Active LONNIE Iglesias Active VALIUM 5 MG TAB 1 po 30 minutes prior to your MRI DIAZEPAM 62442854669 No Longer Active LONNIE Iglesias Active METHOCARBAMOL 750 MG TABS 1 PO QID PRN METHOCARBAMOL 89379186860 No Longer Active Daphne Wetzel APRN Active NITROSTAT 0.4 MG SUBL as directed NITROGLYCERIN 10607009987 No Longer Active Jillina Frazell CORPORATE COUNSELOR Active ROBAXIN-750 750 MG TABS 2 four times a day for 3 days as needed for muscle spasm, then 1 four times a day as needed METHOCARBAMOL 76219799447 No Longer Active Rodrigo Sarah APRN Active HYDROCODONE-ACETAMINOPHEN 5-325 MG TABS 1 q 4-6 hrs prn HYDROCODONE-ACETAMINOPHEN 15038551492 No Longer Active Silvestrellina Tyrel ZAPATAN Active VERAPAMIL HCL CR 180 MG CR-TABS TAKE 1 TAB DAILY VERAPAMIL HCL 06129881503 No Longer Active Yolande Lindsay MD PhD Active BACTRIM DS 800-160 MG TAB 1 tab by mouth twice daily TRIMETHOPRIM-SULFAMETHOXAZOLE 97388677964 No Longer Active Yolande Lindsay MD PhD Active NEXIUM 40 MG PACK 1 by mouth daily ESOMEPRAZOLE MAGNESIUM 00348779972 No Longer Active Des Hines MD Active EPIPEN 2-CHARLETTE 0.3 MG/0.3ML OMARI as need for allergic reaction EPINEPHRINE 53375130808 Active Yolande Lindsay MD PhD Active NEXIUM 40 MG CPDR 1 PO Q D DAY ESOMEPRAZOLE MAGNESIUM 05234872616 No Longer Active Sadia Perry RN Active NEXIUM 40 MG PACK 1 by mouth daily NEXIUM 40 MG PACK ESOMEPRAZOLE MAGNESIUM Inactive VERAPAMIL HCL CR 180 MG CR-TABS TAKE 1 TAB DAILY VERAPAMIL HCL CR 180 MG CR-TABS VERAPAMIL HCL Inactive HYDROCODONE-ACETAMINOPHEN 5-325 MG TABS 1 q 4-6 hrs prn HYDROCODONE-ACETAMINOPHEN 5-325 MG TABS 893179 HYDROCODONE-ACETAMINOPHEN Inactive ROBAXIN-750 750 MG TABS 2 four times a day for 3 days as needed for muscle spasm, then 1 four times a day as needed ROBAXIN-750 750 MG TABS 068031 METHOCARBAMOL Inactive NITROSTAT 0.4 MG SUBL as directed NITROSTAT 0.4 MG SUBL 194053 NITROGLYCERIN Inactive METHOCARBAMOL 750 MG TABS 1 PO QID PRN METHOCARBAMOL 750 MG TABS 169727 METHOCARBAMOL Inactive VALIUM 5 MG TAB 1 po 30 minutes prior to your MRI VALIUM 5 MG TAB 435310 DIAZEPAM Inactive ANUSOL-HC 25 MG SUPPOSITORY 1 suppository rectally each evening as needed for anal fissure ANUSOL-HC 25 MG SUPPOSITORY 9951275 HYDROCORTISONE JAYDEN (RECTAL) Inactive ANUSOL-HC 25 MG SUPPOSITORY 1 rectally twice a day as needed for hemorrhoids ANUSOL-HC 25 MG SUPPOSITORY 5705546 HYDROCORTISONE JAYDEN (RECTAL) Inactive FLONASE 50 MCG/ACT SUSP 1 spray each nostril am and hs FLONASE 50 MCG/ACT SUSP FLUTICASONE PROPIONATE Inactive DICLOFENAC SODIUM 75 MG TBEC 1 tablet by q 12 hours PRN headaches DICLOFENAC SODIUM 75 MG TBEC 136485 DICLOFENAC SODIUM Inactive PA VITAMIN D-3 2000 UNIT CAPS 1 CAP PO DAILY PA VITAMIN D-3 2000 UNIT CAPS CHOLECALCIFEROL Inactive PREVACID 30 MG CPDR Take 1 tablet by mouth daily-PRN PREVACID 30 MG CPDR 358221 LANSOPRAZOLE Inactive DOXYCYCLINE HYCLATE 100 MG TAB 1 tab twice a day for 14 days 2013 DOXYCYCLINE HYCLATE 100 MG TAB 9215451 DOXYCYCLINE HYCLATE Inactive XOPENEX 1.25 MG/3ML NEBU 1 neb every 4 hours if needed for cough/congestion XOPENEX 1.25 MG/3ML NEBU 466926 LEVALBUTEROL HCL Inactive CYCLOBENZAPRINE HCL 10 MG TABS 1/2 - 1 tab by mouth three times daily if needed for spasms/pain CYCLOBENZAPRINE HCL 10 MG TABS 683032 CYCLOBENZAPRINE HCL Inactive ALBUTEROL SULFATE 0.083 % NEBU SOLN one vial per nebulizer every 4-6 hours as needed ALBUTEROL SULFATE 0.083 % [facility] SOLN 017850 ALBUTEROL SULFATE Inactive CEFTIN 500 MG TAB 1 twice a day CEFTIN 500 MG TAB 269800 CEFUROXIME AXETIL Inactive ZOFRAN ODT 4 MG TBDP 1 pill dissolved by mouth every 4 hours if needed for nausea ZOFRAN ODT 4 MG TBDP 676128 ONDANSETRON Inactive ADULT ASPIRIN EC LOW STRENGTH 81 MG TBEC Take 1 tablet by mouth daily 2014 ADULT ASPIRIN EC LOW STRENGTH 81 MG TBEC 977176 ASPIRIN Inactive CALCIUM 600+D PLUS MINERALS 600-400 [...] or an apple NIACIN 500 MG TABS 598179 NIACIN Inactive NIASPAN 500 MG ORAL CR-TABS 1 pill nightly x 1 week, then 2 pills nightly x 1 week, then 3 pills nightly x 1 week, then 4 pills nightly NIASPAN 500 MG ORAL CR-TABS NIACIN (ANTIHYPERLIPIDEMIC) Inactive OXYCODONE HCL 5 MG ORAL CAPS 1 TAB PO Q HS OXYCODONE HCL 5 MG ORAL CAPS 4465511 OXYCODONE HCL Inactive FLUTICASONE PROPIONATE 50 MCG/ACT SUSP 1 to 2 sprays each nostril daily 04/21 FLUTICASONE PROPIONATE 50 MCG/ACT SUSP 2951839 FLUTICASONE PROPIONATE Inactive POLYTRIM 84790-5.1 UNIT/ML-% SOLN 1 gtt to affected eye q3h x 7 days POLYTRIM 32516-0.1 UNIT/ML-% SOLN 761404 POLYMYXIN B- TRIMETHOPRIM Inactive CHERATUSSIN AC 100-10 MG/5ML SYRP 1 tsp by mouth every 4 hours as needed for cough CHERATUSSIN AC 100-10 MG/5ML SYRP 138426 GUAIFENESIN-CODEINE Inactive LEVOTHYROXINE SODIUM 75 MCG TABS Take 1 tab daily LEVOTHYROXINE SODIUM 75 MCG TABS 867579 LEVOTHYROXINE SODIUM Inactive BACTRIM DS 800-160 MG TAB 1 tab by mouth twice daily BACTRIM DS 800-160 MG TAB 19820606 TRIMETHOPRIM-SULFAMETHOXAZOLE Inactive AZITHROMYCIN 250 MG TABS 2 po qd x 1 day, then 1 po qd x 4 days AZITHROMYCIN 250 MG TABS 2023386 AZITHROMYCIN Inactive CEFDINIR 300 MG CAPS by mouth twice a day CEFDINIR 300 MG CAPS 20020708 CEFDINIR Inactive AZITHROMYCIN 250 MG TABS 2 pills on day 1, then 1 pill daily x 4 days AZITHROMYCIN 250 MG TABS 7434547 AZITHROMYCIN Inactive DOXYCYCLINE HYCLATE 100 MG CAP 1 cap by mouth twice daily DOXYCYCLINE HYCLATE 100 MG CAP 9149673 DOXYCYCLINE HYCLATE Inactive FUROSEMIDE 20 MG TABS 1 pill by mouth daily, for edema FUROSEMIDE 20 MG TABS 178432 FUROSEMIDE Inactive AZITHROMYCIN 250 MG TABS 2 po qd x 1 day, then 1 po qd x 4 days AZITHROMYCIN 250 MG TABS 8326804 AZITHROMYCIN Inactive CEFTIN 500 MG TAB 1 twice a day CEFTIN 500 MG TAB 115500 CEFUROXIME AXETIL Inactive CEFDINIR 300 MG CAPS 1 po BID x 10 days CEFDINIR 300 MG CAPS 20020708 CEFDINIR Inactive BACTRIM DS 800-160 MG TAB 1 tab by mouth twice daily BACTRIM DS 800-160 MG TAB 748833 TRIMETHOPRIM-SULFAMETHOXAZOLE Inactive PREDNISONE 20 MG TAB 2 tabs daily for 3 days, 1 tab daily for 3 days, 1/2 tab daily for 2 days PREDNISONE 20 MG TAB 741016 PREDNISONE Inactive Immunizations Vaccine Administration Date Value Standard Description Seasonal influenza vaccine, injectable, containing preservative, for > 3 years old (Afluria, FluLaval, Fluzone, Fluvirin, Fluarix, Agriflu(>=18 yo)) Fluzone (>3 yrs.) [BSH823] Influenza, seasonal, injectable influenza immunization (Flu Vax) has been administered Influenza - Unspecified Formulation [CVX88] influenza virus vaccine, unspecified formulation Seasonal influenza vaccine, injectable, containing preservative, for > 3 years old (Afluria, FluLaval, Fluzone, Fluvirin, Fluarix, Agriflu(>=18 yo)) Fluzone (>3 yrs.) [QXS218] Influenza, seasonal, injectable pneumococcal immunization administered Pneumovax 23 [CVX33] pneumococcal polysaccharide vaccine, 23 valent dT (Diphtheria and Tetanus) booster given given Td(adult) unspecified formulation Boostrix (Tetanus toxoid, reduced diphtheria toxoid and acellular pertussis vaccine, adsorbed), booster Boostrix [KYA888] tetanus toxoid, reduced diphtheria toxoid, and acellular [...] Panel - Chemistry sodium, serum 142 mmol/L 540-552 8240/06/30 potassium, serum 4.4 mmol/L 3.5-5.2 chloride, serum [...] Rate - Chemistry sodium, serum 139 mmol/L 787-172 3147/03/24 carbon dioxide, venous blood 22.4 mmol/L 21.0-32.0 [...] ... - Chemistry sodium, serum 143 mmol/L 880-851 9121/05/02 carbon dioxide, venous blood 25.6 mmol/L 21.0-32.0 [...] dipstick Negative Negative sodium, serum 142 mmol/L 451-298 8482/07/18 carbon dioxide, venous blood 27.8 mmol/L 21.0-32.0 [...] negative Encounters Code Encounter Date Provider Facility CPT-06139 Level 3 Est. Patient 20:13:34 INVESTMENT MANAGER Jared Og MD [facility] CPT-68954 Level 4 Est. Patient 16:31:27 CDT Gab Padron MD [facility] CPT-87811 Level 2 Est. Patient 12:23:38 CDT Jared Og MD [facility] CPT-76750 Level 3 Est. Patient 11:01:51 CDT Gab Padron MD [facility] CPT-17433 Level 3 Est. Patient 15:27:02 CDT Jared Og MD [facility] CPT-40258 Level 4 Est. Patient 09:25:27 CDT Gab Padron MD [facility] CPT-69472 Level 3 Est. Patient 10:29:41 CDT Rodrigo Sarah [facility] CPT-57992 Level 4 Est. Patient 17:51:05 CDT Gab Padron MD [facility]-29943 Level 3 Est. Patient 14:18:08 CDT Gab Padron MD [facility]-66261 Level 4 Est. Patient 10:18:54 CDT Gab Padron MD [facility] CPT-43495 Level 3 Est. Patient 11:30:07 CDT Rodrigo Sarah [facility] CPT-59406 Level 4 Est. Patient 21:02:30 INVESTMENT MANAGER Gab Pardon MD [facility] CPT-06598 Level 3 Est. Patient 11:02:19 INVESTMENT MANAGER Gab Padron MD [facility] CPT-27906 Level 4 Est. Patient 22:24:31 INVESTMENT MANAGER Gab Padron MD [facility] CPT-26927 Level 3 Est. Patient 18:33:46 INVESTMENT MANAGER Gab Padron MD [facility] CPT-47051 Level 3 Est. Patient 16:19:11 CDT Yolande Lindsay MD [facility]-02597 Level 3 Est. Patient 18:59:14 CDT Yolande Lindsay MD [facility] CPT-77438 Level 4 Est. Patient 21:29:26 CDT Yolande Lindsay MD PhD [facility] CPT-77469 Level 3 Est. Patient 07:37:45 CDT Yolande Lindsay MD [facility] CPT-02198 Level 3 Est. Patient 17:03:46 CDT Yolande Lindsay MD [facility]-77900 Level 4 Est. Patient 20:02:13 INVESTMENT MANAGER Yolande Lindsay MD [facility]-51789 Level 3 Est. Patient 16:02:07 INVESTMENT MANAGER Alexis Ordaz MD [facility]-84004 Level 3 Est. Patient 12:41:24 INVESTMENT MANAGER Yolande Lindsay MD [facility]-47170 Level 3 Est. Patient 15:41:20 INVESTMENT MANAGER Yolande Lindsay MD [facility]-57520 Level 3 Est. Patient 13:20:02 INVESTMENT MANAGER Yolande Lindsay MD [facility]-41978 Level 3 Est. Patient 15:00:38 CDT Jared Og MD [facility] CPT-99554 Level 3 Est. Patient 10:22:32 CDT Yolande Lindsay MD [facility]-34922 Level 3 Est. Patient 17:12:58 CDT Yolande Lindsay MD [facility] CPT-10235 Level 4 Est. Patient 13:30:58 CDT Yolande Lindsay MD [facility] CPT-27873 Level 4 New Patient 09:02:42 CDT Jared Og MD [facility]-73425 Level 3 Est. Patient 08:19:07 CDT Yolande Lindsay MD [facility]-20437 Level 3 Est. Patient 12:00:13 INVESTMENT MANAGER Gab Padron MD [facility]-92822 Level 3 Est. Patient 16:15:23 INVESTMENT MANAGER Yolande Lindsay MD [facility]-18964 Level 2 Est. Patient 19:47:15 CDT Yolande Lindsay MD [facility]-64527 Level 3 Est. Patient 21:38:31 CDT Yolande Lindsay MD [facility]-45555 Level 3 Est. Patient 10:25:12 CDT Adiel PERAZA [facility]-02939 Level 4 Est. Patient 10:51:58 CDT Yolande Lindsay MD [facility]-24026 Level 3 Est. Patient 14:04:55 INVESTMENT MANAGER Rodrigo Sarah [facility]-33370 Level 3 Est. Patient 10:46:35 INVESTMENT MANAGER Rodrigo Sarah [facility]-17967 Level 3 Est. Patient 14:24:37 INVESTMENT MANAGER Yolande Lindsay MD [facility]-81257 Level 3 Est. Patient 17:41:58 INVESTMENT MANAGER Yolande Lindsay MD [facility]-25802 Level 2 Est. Patient 22:01:41 INVESTMENT MANAGER Rodrigo Sarah [facility] CPT-15239 Level 2 Est. Patient 22:01:11 INVESTMENT MANAGER Rodrigo Sarah [facility] CPT-77047 Level 3 Est. Patient 10:12:29 INVESTMENT MANAGER Rodrigo Sarah [facility] CPT-61271 Level 3 Est. Patient 11:05:44 CDT Alexis Ordaz MD [facility]-92376 Level 3 Est. Patient 14:57:20 CDT Yolande Lindsay MD [facility]-79819 Level 3 Est. Patient 14:40:57 CDT Yolande Lindsay MD [facility] CPT-43361 Level 3 Est. Patient 20:55:40 CDT Yolande Lindsay MD PhD [facility] CPT-84645 Level 3 Est. Patient 12:42:38 INVESTMENT MANAGER Yolande Lindsay MD PhD [facility] CPT-99430 Level 3 Est. Patient 11:54:49 INVESTMENT MANAGER Des Hines MD [facility] CPT-00264 Level 3 Est. Patient 17:06:38 CDT Dewayne PERAZA [facility] Procedures Code Procedure Name Date Entry Date Standard Description CPT-14267 First Vx - Ix admin via ID IM or jet injects without counseling by physician 11:52:31 CDT CPT-46984 Fluzone Preservative Free Intramuscular Suspension 11:52 :31 CDT CPT-75913 Foot, left, comp min 3V - XRAY USE ONLY 09:24:54 CDT CPT-22466 Abd single AP View - XRAY USE ONLY 11:16:17 CDT CPT-35520 T spine AP/ Lat - XRAY USE ONLY 09:34:21 CDT CPT-93627 Chest 2V Frontal and Lat - XRAY USE ONLY 10:48:51 CDT CPT-04295 LS spine comp w obliq 13:28:00 INVESTMENT MANAGER CPT-J1040 Depo Medrol 80 mg (Methyl Prednisolone Acetate) 10:51: 28 INVESTMENT MANAGER CPT-J1100 Decadron 8mg (Dexamethasone) 10:51:28 INVESTMENT MANAGER CPT-44571 Abx/Therapy Injection 10:51:28 INVESTMENT MANAGER CPT-J1100 Decadron 8mg (Dexamethasone) 21:02:30 INVESTMENT MANAGER CPT-J1040 Depo Medrol 80 mg (Methyl Prednisolone Acetate) 21:02: 30 INVESTMENT MANAGER [id number] Event Monitor - MC Transmission 09:12:32 CDT 08/06 [id number] Event Monitor - MC review and interp 09:12:32 CDT [id number] Event Monitor - MC recording 09:12:32 CDT CPT-83228 EKG Trac and Interp 16:50:22 CDT CPT-J1030 Depo Medrol 40 mg (Methyl Prednisolone Acetate) 17:05: 54 CDT CPT-J1100 Decadron 4mg (Dexamethasone) 17:05:54 CDT CPT-77472 Abx/Therapy Injection 17:05:54 CDT CPT-J1100 Decadron 4mg (Dexamethasone) 16:55:28 CDT CPT-J1030 Depo Medrol 40 mg (Methyl Prednisolone Acetate) 16:55: 28 CDT CPT-44892 Ankle Complete - Min 3V 15:58:50 CDT CPT-97977 Knee 3V 15:58:50 CDT CPT-84876 Hip comp min 2V 15:58:50 CDT CPT-J2270 Morphine Sulfate 10 mg 14:25:44 INVESTMENT MANAGER CPT-J2550 Phenergan 12.5 mg (Promethazine) 14:25:44 INVESTMENT MANAGER CPT-46642 Abx/Therapy Injection 14:25:44 INVESTMENT MANAGER CPT-J2550 Phenergan 12.5 mg (Promethazine) 14:08:03 INVESTMENT MANAGER CPT-J2270 Morphine Sulfate 10 mg 14:08:03 INVESTMENT MANAGER CPT-03958 Bladder Scan 15:00:38 CDT CPT-TCMM Transitional Care Mgmt-Moderate 09:52:22 CDT CPT-J1030 Depo Medrol 40 mg (Methyl Prednisolone Acetate) 10:55: 18 CDT CPT-J1100 Decadron 4mg (Dexamethasone) 10:55:18 CDT CPT-51085 Abx/Therapy Injection 10:55:18 CDT CPT-J1030 Depo Medrol 40 mg (Methyl Prednisolone Acetate) 10:22: 32 CDT CPT-J1100 Decadron 4mg (Dexamethasone) 10:22:32 CDT CPT-18016 Postop F/U Visit 14:37:13 CDT CPT-26534 Ankle Complete - Min 3V 17:11:58 CDT CPT-12544 Foot comp min 3V 17:11:58 CDT CPT-97293 Bladder Scan 09:56:58 CDT CPT-28557 Postop F/U Visit 09:56:58 CDT CPT-00774 Cystoscopy 09:02:42 CDT CPT-80106 Bladder Scan 09:02:42 CDT CPT-99270 Abd single AP View 16:00:35 CDT CPT-46404 Administration single or combination vaccine inc oral 10 :15:43 CDT CPT-63800 Influenza split virus > age 3 10:15:43 CDT CPT-29176 Nail Avulsion 09:24:57 CDT CPT-OV Office Visit 11:15:41 CDT CPT-85586 Abx/Therapy Injection 10:51:30 CDT CPT-J3301 Kenalog 40 mg (Triamcinolone Acetonide) 10:25:12 CDT CPT-J1100 Decadron 4mg (Dexamethasone) 10:25:12 CDT CPT-66096 Anoscopy diagnostic 10:36:12 CDT CPT-OV Office Visit 15:34:31 CDT CPT-09643 Abx/Therapy Injection 08:21:15 INVESTMENT MANAGER CPT-J1885 Toradol 60 mg (Ketorolac) 10:46:35 INVESTMENT MANAGER CPT-OV Office Visit 19:51:16 INVESTMENT MANAGER CPT-41107 Spec Collection and Handling Fee 14:34:18 INVESTMENT MANAGER CPT-PV Prev. Care Visit 14:19:18 INVESTMENT MANAGER CPT-82565 Postop F/U Visit 14:47:51 INVESTMENT MANAGER CPT-19093 Postop F/U Visit 15:15:14 INVESTMENT MANAGER CPT-15878 Postop F/U Visit 14:41:43 CDT CPT-56775 Postop F/U Visit 15:47:46 CDT CPT-OV Office Visit 15:27:23 CDT CPT-OV Office Visit 17:20:34 CDT CPT-51714 Abx/Therapy Injection 15:05:57 CDT CPT-J1100 Decadron 8mg (Dexamethasone) 14:44:57 CDT CPT-J1040 Depo Medrol 80 mg (Methyl Prednisolone Acetate) 14:44: 57 CDT CPT-JTINJ Joint Injection 10:17:37 CDT CPT-93092 Administration 2+ single or combination vaccines inc oral 13:01:46 INVESTMENT MANAGER CPT-02383 Administration single or combination vaccine inc oral 13 :01:46 INVESTMENT MANAGER CPT-98093 Pneumovax 13:01:46 INVESTMENT MANAGER CPT-56898 Influenza split virus > age 3 13:01:46 INVESTMENT MANAGER CPT-51369 Administration single or combination vaccine inc oral 08 :56:49 CDT CPT-63741 Tdap 08:56:49 CDT
--- OUTSIDE RECORDS SUMMARY | 2017-03-21 20:27 | XMS REPORT | Clinical Summary ---
Author Author Admin, MARGRET Organization Intern Address Unknown Phone Unavailable Allergies, Adverse Reactions, Alerts Allergy Name Reaction Description Start Date Severity Status Provider VALENTIN Critical Active Rodrigo Montemayorl [employer] CHLORHEXIDINE GLUCONATE tongue and gums swollen Critical Active Hoa Kabaford RMA NORFLEX Rash Critical Active Rowenaina Frazell [employer] TRAZODONE HCL sees things Critical Active Dewayne [...] of 412 Active Hoa Otto [facility] Old myocardial infarction Pelvic pain 789.09 Active Yolande Lindsay MD PhD Abdominal pain, other specified site; multiple sites Edema 782.3 Active Yolande Lindsay MD PhD Edema Rash 782.1 Active Yolande Lindsay MD PhD Rash and other nonspecific skin eruption Back pain, lumbar 724.2 Active Gab Padron MD Lumbago Cough 786.2 Active Jillina Tyrel [employer] Cough 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 Jillina Frazellilian ZAPATAN 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 Anemia 285.9 Active Gab Padron MD Anemia, unspecified Conjunctivitis 372.30 Active Jillnacho Sarah APRN Conjunctivitis, unspecified Sinusitis 473.9 Active Jillina Frazell [employer] Unspecified sinusitis (chronic) Nonspecific syndrome suggestive of viral illness 079.99 Active Jillina Siml [employer] Unspecified viral infection Laryngitis 464.00 Active Jillina Farshadzell [employer] Acute laryngitis without mention of obstruction Abdominal [...] Abdominal pain, generalized 789.07 Active Silvestrellina Siml [employer] Abdominal pain, generalized Back pain, thoracic region, left 724.1 Active Jillina Farshadzell [employer] Pain in thoracic spine Abdominal pain, left [...] every 6 hrs prn pain TRAMADOL HCL 11560306533 Active Gab Padron MD Active PREDNISONE 20 MG TAB 2 tabs daily for 3 days, 1 tab daily for 3 days, 1/2 tab daily for 2 days PREDNISONE 77265099228 No Longer Active Gab Padron MD Active ZOFRAN ODT 4 MG TBDP 1 po q6hr PRN Nausea ONDANSETRON 39937830946 Active Gab Padron MD Active IBUPROFEN 600 MG TAB 1 tablet by mouth every 6 hours for 7 days, then 1 tablet every 6 hours as needed. Take with food IBUPROFEN 70465893220 Active Jillina Frazell [employer] Active BACTRIM DS 800-160 MG TAB 1 tab by mouth twice daily TRIMETHOPRIM-SULFAMETHOXAZOLE 88412194938 No Longer Active Gab Padron MD Active ADVAIR DISKUS 250-50 MCG/DOSE AEPB 1 puff BID FLUTICASONE- SALMETEROL 76548584962 Active Jillnacho Sarah [employer] Active LEVOTHYROXINE SODIUM 75 MCG TABS Take 1 tab daily LEVOTHYROXINE SODIUM 94143820095 No Longer Active Mariana Cuadra [facility] Active SYNTHROID 88 MCG ORAL TABS Take one by mouth daily LEVOTHYROXINE SODIUM 57355163426 Active Gab Padron MD Active CHERATUSSIN AC 100-10 MG/5ML SYRP 1 tsp by mouth every 4 hours as needed for cough GUAIFENESIN-CODEINE 39641132964 No Longer Active Gab Padron MD Active POLYTRIM 97893-1.1 UNIT/ML-% SOLN 1 gtt to affected eye q3h x 7 days POLYMYXIN B-TRIMETHOPRIM 37249304943 No Longer Active Gab Padron MD Active FLUTICASONE PROPIONATE 50 MCG/ACT SUSP 1 to 2 sprays each nostril daily 04/21 FLUTICASONE PROPIONATE 01531123897 No Longer Active Gab Padron MD Active TRILEPTAL 600 MG TABS Take one 1 tablet in Am and 1 tablet at night OXCARBAZEPINE 66276474353 Active Gab Padron MD Active CEFDINIR 300 MG CAPS 1 po BID x 10 days CEFDINIR 83344132721 No Longer Active Rodrigo Sarah APRN Active CEFTIN 500 MG TAB 1 twice a day CEFUROXIME AXETIL 22302510159 No Longer Active Gab Padron MD Active AZITHROMYCIN 250 MG TABS 2 po qd x 1 day, then 1 po qd x 4 days AZITHROMYCIN 27050082771 No Longer Active Rodrigo Sarah APRN Active CLARITIN 10 MG TAB 1 tablet by mouth daily as needed for allergies LORATADINE 20190189898 Active Rodrigo Sarah APRN Active OXYCODONE HCL 5 MG ORAL CAPS 1 TAB PO Q HS OXYCODONE HCL 00444023393 No Longer Active Rodrigo Sarah APRN Active NIASPAN 500 MG ORAL CR-TABS 1 pill nightly x 1 week, then 2 pills nightly x 1 week, then 3 pills nightly x 1 week, then 4 pills nightly NIACIN (ANTIHYPERLIPIDEMIC) 81844720509 No Longer Active Rodrigo Sarah APRN Active NIACIN 500 MG TABS 1 pill by mouth nightly x 1 week, then 2 pills x 1 week, then 3 pills x 1 week, then 4 pills nightly - take after evening meal, with applesauce or an apple NIACIN 63452208998 No Longer Active Yolande Lindsay MD PhD Active FISH OIL 1000 MG CAPS 3 pills daily OMEGA-3 FATTY ACIDS 04813054106 Active Yolande Lindsay MD PhD Active TRIAMCINOLONE ACETONIDE 0.1 % CREA apply bid sparingly to rash TRIAMCINOLONE ACETONIDE 96328687815 Active Yolande Lindsay MD PhD Active FUROSEMIDE 20 MG TAB 1 tablet by mouth daily FUROSEMIDE 32611064419 Active Tisha Lambert APRN Active LISINOPRIL 20 MG ORAL TABS 1 tab by mouth daily LISINOPRIL 00607648609 Active Tisha Lambert APRN Active FUROSEMIDE 20 MG TABS 1 pill by mouth daily, for edema FUROSEMIDE 26902449146 No Longer Active Yolande Lindsay MD PhD Active ATORVASTATIN CALCIUM 10 MG TABS 1 pill by mouth daily, for cholesterol 09/06 ATORVASTATIN CALCIUM 97035780858 Active Gab Padron MD Active CALCIUM 600+D PLUS MINERALS 600-400 MG-UNIT ORAL CHEW 1 tab by mouth daily CALCIUM CARBONATE-VIT D-MIN 67865202267 No Longer Active Yolande Lindsay MD PhD Active CYCLOBENZAPRINE HCL 10 MG TABS 1 tablet by mouth three times daily as needed for muscle spasm/pain CYCLOBENZAPRINE HCL 74611234715 Active Yolande Lindsay MD PhD Active ONDANSETRON 4 MG TBDP 1 q4h PRN nausea ONDANSETRON 11722999795 Active Yolande Lindsay MD PhD Active ADULT ASPIRIN EC LOW STRENGTH 81 MG TBEC Take 1 tablet by mouth daily 2014 ASPIRIN 85594164613 No Longer Active Yolande Lindsay MD PhD Active ZOFRAN ODT 4 MG TBDP 1 pill dissolved by mouth every 4 hours if needed for nausea ONDANSETRON 98186405841 No Longer Active Yolande Lindsay MD PhD Active CEFTIN 500 MG TAB 1 twice a day CEFUROXIME AXETIL 77370566896 No Longer Active Yolande Lindsay MD PhD Active ALBUTEROL SULFATE 0.083 % NEBU SOLN one vial per nebulizer every 4-6 hours as needed ALBUTEROL SULFATE 13889963740 No Longer Active Alexis Ordaz MD Active DOXYCYCLINE HYCLATE 100 MG CAP 1 cap by mouth twice daily DOXYCYCLINE HYCLATE 22501709869 No Longer Active Yolande Lindsay MD PhD Active CYCLOBENZAPRINE HCL 10 MG TABS 1/2 - 1 tab by mouth three times daily if needed for spasms/pain CYCLOBENZAPRINE HCL 64657720018 No Longer Active Yolande Lindsay MD PhD Active AZITHROMYCIN 250 MG TABS 2 pills on day 1, then 1 pill daily x 4 days AZITHROMYCIN 64874413480 No Longer Active Yolande Lindsay MD PhD Active XOPENEX 1.25 MG/3ML NEBU 1 neb every 4 hours if needed for cough/congestion LEVALBUTEROL HCL 64651301913 No Longer Active Yolande Lindsay MD PhD Active DOXYCYCLINE HYCLATE 100 MG TAB 1 tab twice a day for 14 days 2013 DOXYCYCLINE HYCLATE 99755345934 No Longer Active Yolande Lindsay MD PhD Active PREVACID 30 MG CPDR Take 1 tablet by mouth daily-PRN LANSOPRAZOLE 49836955026 No Longer Active Yolande Lindsay MD PhD Active PA VITAMIN D-3 2000 UNIT CAPS 1 CAP PO DAILY CHOLECALCIFEROL 37279636836 No Longer Active Yolande Lindsay MD PhD Active CEFDINIR 300 MG CAPS by mouth twice a day CEFDINIR 44713684433 No Longer Active Gab Padron MD Active TOPAMAX 50 MG TABS 1 PO twice daily TOPIRAMATE 51064085624 Active Yolande Lindsay MD PhD Active AZITHROMYCIN 250 MG TABS 2 po qd x 1 day, then 1 po qd x 4 days AZITHROMYCIN 10789642522 No Longer Active Yolande Lindsay MD PhD Active DICLOFENAC SODIUM 75 MG TBEC 1 tablet by q 12 hours PRN headaches DICLOFENAC SODIUM 17160747644 No Longer Active Yolande Lindsay MD PhD Active FLONASE 50 MCG/ACT SUSP 1 spray each nostril am and hs FLUTICASONE PROPIONATE 41898328344 No Longer Active Todd Callaway MD Active ANUSOL-HC 25 MG SUPPOSITORY 1 rectally twice a day as needed for hemorrhoids HYDROCORTISONE JAYDEN (RECTAL) 32103890684 No Longer Active Yolande Lindsay MD PhD Active ANUSOL-HC 25 MG SUPPOSITORY 1 suppository rectally each evening as needed for anal fissure HYDROCORTISONE JAYDEN (RECTAL) 76016176702 No Longer Active Bozena Coleman, RMA Active VALIUM 5 MG TAB 1 po 30 minutes prior to your MRI DIAZEPAM 37287042629 No Longer Active Bozena JaredEDELMIRAFeliciano Active METHOCARBAMOL 750 MG TABS 1 PO QID PRN METHOCARBAMOL 78006726648 No Longer Active Daphne Wetzel [employer] Active NITROSTAT 0.4 MG SUBL as directed NITROGLYCERIN 74711267374 No Longer Active Rodrigo Sarah [employer] Active ROBAXIN-750 750 MG TABS 2 four times a day for 3 days as needed for muscle spasm, then 1 four times a day as needed METHOCARBAMOL 72864916448 No Longer Active Rodrigo Sarah APRN Active HYDROCODONE-ACETAMINOPHEN 5-325 MG TABS 1 q 4-6 hrs prn HYDROCODONE-ACETAMINOPHEN 62270786130 No Longer Active Rodrigo Sarah APRN Active VERAPAMIL HCL CR 180 MG CR-TABS TAKE 1 TAB DAILY VERAPAMIL HCL 55562451991 No Longer Active Yolande Lindsay MD PhD Active BACTRIM DS 800-160 MG TAB 1 tab by mouth twice daily TRIMETHOPRIM-SULFAMETHOXAZOLE 66785491988 No Longer Active Yolande Lindsay MD PhD Active NEXIUM 40 MG PACK 1 by mouth daily ESOMEPRAZOLE MAGNESIUM 81261196972 No Longer Active Des Hines MD Active EPIPEN 2-CHARLETTE 0.3 MG/0.3ML OMARI as need for allergic reaction EPINEPHRINE 59933516231 Active Yolande Lindsay MD PhD Active NEXIUM 40 MG CPDR 1 PO Q D DAY ESOMEPRAZOLE MAGNESIUM 93895193625 No Longer Active Sadia Perry RN Active NEXIUM 40 MG PACK 1 by mouth daily NEXIUM 40 MG PACK ESOMEPRAZOLE MAGNESIUM Inactive VERAPAMIL HCL CR 180 MG CR-TABS TAKE 1 TAB DAILY VERAPAMIL HCL CR 180 MG CR-TABS VERAPAMIL HCL Inactive HYDROCODONE-ACETAMINOPHEN 5-325 MG TABS 1 q 4-6 hrs prn HYDROCODONE-ACETAMINOPHEN 5-325 MG TABS 258492 HYDROCODONE-ACETAMINOPHEN Inactive ROBAXIN-750 750 MG TABS 2 four times a day for 3 days as needed for muscle spasm, then 1 four times a day as needed ROBAXIN-750 750 MG TABS 010804 METHOCARBAMOL Inactive NITROSTAT 0.4 MG SUBL as directed NITROSTAT 0.4 MG SUBL 716178 NITROGLYCERIN Inactive METHOCARBAMOL 750 MG TABS 1 PO QID PRN METHOCARBAMOL 750 MG TABS 103404 METHOCARBAMOL Inactive VALIUM 5 MG TAB 1 po 30 minutes prior to your MRI VALIUM 5 MG TAB 169384 DIAZEPAM Inactive ANUSOL-HC 25 MG SUPPOSITORY 1 suppository rectally each evening as needed for anal fissure ANUSOL-HC 25 MG SUPPOSITORY 7872354 HYDROCORTISONE JAYDEN (RECTAL) Inactive ANUSOL-HC 25 MG SUPPOSITORY 1 rectally twice a day as needed for hemorrhoids ANUSOL-HC 25 MG SUPPOSITORY 8959805 HYDROCORTISONE JAYDEN (RECTAL) Inactive FLONASE 50 MCG/ACT SUSP 1 spray each nostril am and hs FLONASE 50 MCG/ACT SUSP FLUTICASONE PROPIONATE Inactive DICLOFENAC SODIUM 75 MG TBEC 1 tablet by q 12 hours PRN headaches DICLOFENAC SODIUM 75 MG TBEC 559338 DICLOFENAC SODIUM Inactive PA VITAMIN D-3 2000 UNIT CAPS 1 CAP PO DAILY PA VITAMIN D-3 2000 UNIT CAPS CHOLECALCIFEROL Inactive PREVACID 30 MG CPDR Take 1 tablet by mouth daily-PRN PREVACID 30 MG CPDR 414323 LANSOPRAZOLE Inactive DOXYCYCLINE HYCLATE 100 MG TAB 1 tab twice a day for 14 days 2013 DOXYCYCLINE HYCLATE 100 MG TAB 0351131 DOXYCYCLINE HYCLATE Inactive XOPENEX 1.25 MG/3ML NEBU 1 neb every 4 hours if needed for cough/congestion XOPENEX 1.25 MG/3ML NEBU 243440 LEVALBUTEROL HCL Inactive CYCLOBENZAPRINE HCL 10 MG TABS 1/2 - 1 tab by mouth three times daily if needed for spasms/pain CYCLOBENZAPRINE HCL 10 MG TABS 310151 CYCLOBENZAPRINE HCL Inactive ALBUTEROL SULFATE 0.083 % NEBU SOLN one vial per nebulizer every 4-6 hours as needed ALBUTEROL SULFATE 0.083 % NEBU SOLN 075396 ALBUTEROL SULFATE Inactive CEFTIN 500 MG TAB 1 twice a day CEFTIN 500 MG TAB 284661 CEFUROXIME AXETIL Inactive ZOFRAN ODT 4 MG TBDP 1 pill dissolved by mouth every 4 hours if needed for nausea ZOFRAN ODT 4 MG TBDP 207725 ONDANSETRON Inactive ADULT ASPIRIN EC LOW STRENGTH 81 MG TBEC Take 1 tablet by mouth daily 2014 ADULT ASPIRIN EC LOW STRENGTH 81 MG TBEC 204774 ASPIRIN Inactive CALCIUM 600+D PLUS MINERALS 600-400 [...] or an apple NIACIN 500 MG TABS 094681 NIACIN Inactive NIASPAN 500 MG ORAL CR-TABS 1 pill nightly x 1 week, then 2 pills nightly x 1 week, then 3 pills nightly x 1 week, then 4 pills nightly NIASPAN 500 MG ORAL CR-TABS NIACIN (ANTIHYPERLIPIDEMIC) Inactive OXYCODONE HCL 5 MG ORAL CAPS 1 TAB PO Q HS OXYCODONE HCL 5 MG ORAL CAPS 8922938 OXYCODONE HCL Inactive FLUTICASONE PROPIONATE 50 MCG/ACT SUSP 1 to 2 sprays each nostril daily 04/21 FLUTICASONE PROPIONATE 50 MCG/ACT SUSP 0016619 FLUTICASONE PROPIONATE Inactive POLYTRIM 52971-0.1 UNIT/ML-% SOLN 1 gtt to affected eye q3h x 7 days POLYTRIM 61487-9.1 UNIT/ML-% SOLN 689714 POLYMYXIN B- TRIMETHOPRIM Inactive CHERATUSSIN AC 100-10 MG/5ML SYRP 1 tsp by mouth every 4 hours as needed for cough CHERATUSSIN AC 100-10 MG/5ML SYRP 341179 GUAIFENESIN-CODEINE Inactive LEVOTHYROXINE SODIUM 75 MCG TABS Take 1 tab daily LEVOTHYROXINE SODIUM 75 MCG TABS 770757 LEVOTHYROXINE SODIUM Inactive BACTRIM DS 800-160 MG TAB 1 tab by mouth twice daily BACTRIM DS 800-160 MG TAB 887587 TRIMETHOPRIM-SULFAMETHOXAZOLE Inactive AZITHROMYCIN 250 MG TABS 2 po qd x 1 day, then 1 po qd x 4 days AZITHROMYCIN 250 MG TABS 6301119 AZITHROMYCIN Inactive CEFDINIR 300 MG CAPS by mouth twice a day CEFDINIR 300 MG CAPS 025052 CEFDINIR Inactive AZITHROMYCIN 250 MG TABS 2 pills on day 1, then 1 pill daily x 4 days AZITHROMYCIN 250 MG TABS 7025589 AZITHROMYCIN Inactive DOXYCYCLINE HYCLATE 100 MG CAP 1 cap by mouth twice daily DOXYCYCLINE HYCLATE 100 MG CAP 5447897 DOXYCYCLINE HYCLATE Inactive FUROSEMIDE 20 MG TABS 1 pill by mouth daily, for edema FUROSEMIDE 20 MG TABS 265734 FUROSEMIDE Inactive AZITHROMYCIN 250 MG TABS 2 po qd x 1 day, then 1 po qd x 4 days AZITHROMYCIN 250 MG TABS 8389808 AZITHROMYCIN Inactive CEFTIN 500 MG TAB 1 twice a day CEFTIN 500 MG TAB 373182 CEFUROXIME AXETIL Inactive CEFDINIR 300 MG CAPS 1 po BID x 10 days CEFDINIR 300 MG CAPS 697157 CEFDINIR Inactive BACTRIM DS 800-160 MG TAB 1 tab by mouth twice daily BACTRIM DS 800-160 MG TAB 257341 TRIMETHOPRIM-SULFAMETHOXAZOLE Inactive PREDNISONE 20 MG TAB 2 tabs daily for 3 days, 1 tab daily for 3 days, 1/2 tab daily for 2 days PREDNISONE 20 MG TAB 966471 PREDNISONE Inactive Immunizations Vaccine Administration Date Value Standard Description Seasonal influenza vaccine, injectable, containing preservative, for > 3 years old (Afluria, FluLaval, Fluzone, Fluvirin, Fluarix, Agriflu(>=18 yo)) Fluzone (>3 yrs.) [EDS402] Influenza, seasonal, injectable influenza immunization (Flu Vax) has been administered Influenza - Unspecified Formulation [CVX88] influenza virus vaccine, unspecified formulation Seasonal influenza vaccine, injectable, containing preservative, for > 3 years old (Afluria, FluLaval, Fluzone, Fluvirin, Fluarix, Agriflu(>=18 yo)) Fluzone (>3 yrs.) [DDY358] Influenza, seasonal, injectable pneumococcal immunization administered Pneumovax 23 [CVX33] pneumococcal polysaccharide vaccine, 23 valent dT (Diphtheria and Tetanus) booster given given Td(adult) unspecified formulation Boostrix (Tetanus toxoid, reduced diphtheria toxoid and acellular pertussis vaccine, adsorbed), booster Boostrix [XYD744] tetanus toxoid, reduced diphtheria toxoid, and acellular [...] E&M - 3141-9 242 [lb_av] Weight Measured Diagnostic Results Date Name Value Unit Range Description Lab Report: Basic Metabolic Panel - Chemistry sodium, serum 142 mmol/L 394-017 1695/06/30 potassium, serum 4.4 mmol/L 3.5-5.2 chloride, serum 108 mmol/L 98-107 carbon dioxide, venous blood 25.1 mmol/L 21.0-32.0 blood glucose 82 mg/dL 65-110 calcium, serum 9.1 mg/dL 8.5-10.1 urea nitrogen, blood 18 mg/dL 7-18 creatinine, serum 1.31 mg/dL 0.55-1.30 Lab Report: Comp. Metabolic Panel, UADIP W/MICRO, AUTO, Thyroid Stimulat ... - Chemistry TSH 0.63 m[iU]/mL 0.36-3.74 thyroxine, serum, free 0.80 ng/dL 0.76-1.46 sodium, serum 143 mmol/L 824-545 6539/05/02 carbon dioxide, venous blood 25.6 mmol/L 21.0-32.0 [...] PANEL - Chemistry cholesterol, serum 166 mg/dL 935-857 3033/12/06 triglyceride, serum, fasting 86 mg/dL 30-200 HDL cholesterol, serum 62 mg/dL 32-96 LDL cholesterol, serum 87 mg/dL 0-130 aspartate aminotransferase (SGOT), serum 18 U/L 15-37 alanine aminotransferase (SGPT), serum 29 U/L -78 bilirubin, serum, total 0.20 mg/dL 0.00-1.00 Lab Report: MicroAlb Random w/creat/6517 - Urinalysis microalbumin/total urine volume 3 mg/L Units converted. See lab report for original value. microalbumin/creatinine ratio, urine 5 MCG/MG CREAT mg/L <30 Lab Report: UADIP W/MICRO, AUTO, CBC W/DIFF, Comp. Metabolic Panel - Chemistry protein, total urine random Negative mg/dL Negative sodium, serum 142 mmol/L 087-209 6736/07/18 carbon dioxide, venous blood 27.8 mmol/L 21.0-32.0 [...] (dipstick) 0.2 protein, urine, semiquantitative (dipstick) negative pH, urine, semiquantitative 5 specific gravity, [...] negative Encounters Code Encounter Date Provider Facility CPT-75309 Level 3 Est. Patient 17:43:55 ORCHESTRATOR Gab Padron MD [facility] CPT-90544 Level 3 Est. Patient 17:07:49 ORCHESTRATOR Jared Og MD [facility] CPT-32272 Level 4 Est. Patient 19:55:18 ORCHESTRATOR Jared Og MD [facility] CPT-46616 Level 3 Est. Patient 20:13:34 GLO Og MD [facility] CPT-63796 Level 4 Est. Patient 16:31:27 CDT Gab Padron MD [facility] CPT-08258 Level 2 Est. Patient 12:23:38 CDT Jared Og MD [facility] CPT-97766 Level 3 Est. Patient 11:01:51 CDT Gab Padron MD [facility] CPT-44246 Level 3 Est. Patient 15:27:02 CDT Jared Og MD [facility] CPT-51604 Level 4 Est. Patient 09:25:27 CDT Gab Padron MD [facility] CPT-00712 Level 3 Est. Patient 10:29:41 CDT Rodrigo Sarah [facility] CPT-18007 Level 4 Est. Patient 17:51:05 CDT Gab Padron MD [facility]-01149 Level 3 Est. Patient 14:18:08 CDT Gab Padron MD [facility] CPT-95844 Level 4 Est. Patient 10:18:54 CDT Gab Padron MD [facility] CPT-42012 Level 3 Est. Patient 11:30:07 CDT Rodrigo Sarah [facility] CPT-65640 Level 4 Est. Patient 21:02:30 ORCHESTRATOR Gab Padron MD [facility] CPT-36323 Level 3 Est. Patient 11:02:19 ORCHESTRATOR Gab Padron MD [facility] CPT-62735 Level 4 Est. Patient 22:24:31 ORCHESTRATOR Gab Padron MD [facility] CPT-14457 Level 3 Est. Patient 18:33:46 ORCHESTRATOR Gab Padron MD [facility] CPT-41623 Level 3 Est. Patient 16:19:11 CDT Yolande Lindsay MD PhD [facility] CPT-99468 Level 3 Est. Patient 18:59:14 CDT Yolande Lindsay MD PhD [facility] CPT-68894 Level 4 Est. Patient 21:29:26 CDT Yolande Lindsay MD [facility]-63466 Level 3 Est. Patient 07:37:45 CDT Yolande Lindsay MD [facility]-36369 Level 3 Est. Patient 17:03:46 CDT Yolande Lindsay MD [facility]-52646 Level 4 Est. Patient 20:02:13 ORCHESTRATOR Yolande Lindsay MD [facility]-74248 Level 3 Est. Patient 16:02:07 ORCHESTRATOR Alexis Ordaz MD [facility]-68962 Level 3 Est. Patient 12:41:24 ORCHESTRATOR Yolande Lindsay MD [facility]-76805 Level 3 Est. Patient 15:41:20 ORCHESTRATOR Yolande Lindsay MD [facility]-09598 Level 3 Est. Patient 13:20:02 ORCHESTRATOR oYlande Lindsay MD [facility]-38829 Level 3 Est. Patient 15:00:38 CDT Jared Og MD [facility]-51679 Level 3 Est. Patient 10:22:32 CDT Yolande Lindsay MD [facility]-04216 Level 3 Est. Patient 17:12:58 CDT Yolande Lindsay MD [facility]-30320 Level 4 Est. Patient 13:30:58 CDT Yolande Lindsay MD [facility]-53359 Level 4 New Patient 09:02:42 CDT Jared Og MD [facility]-62290 Level 3 Est. Patient 08:19:07 CDT Yolande Lindsay MD [facility]-55901 Level 3 Est. Patient 12:00:13 ORCHESTRATOR Gab Padron MD [facility]-82319 Level 3 Est. Patient 16:15:23 ORCHESTRATOR Yolande Lindsay MD [facility]-40063 Level 2 Est. Patient 19:47:15 CDT Yolande Lindsay MD [facility]-04222 Level 3 Est. Patient 21:38:31 CDT Yolande Lindsay MD [facility]-56644 Level 3 Est. Patient 10:25:12 CDT Adiel PERAZA [facility]-99328 Level 4 Est. Patient 10:51:58 CDT Yolande Lindsay MD [facility]-46691 Level 3 Est. Patient 14:04:55 ORCHESTRATOR Rodrigo Sarah [facility] CPT-34597 Level 3 Est. Patient 10:46:35 ORCHESTRATOR Rodrigo Sarah [facility] CPT-48972 Level 3 Est. Patient 14:24:37 ORCHESTRATOR Yolande Lindsay MD [facility]-63113 Level 3 Est. Patient 17:41:58 ORCHESTRATOR Yolande Lindsay MD [facility]-67681 Level 2 Est. Patient 22:01:41 ORCHESTRATOR Rodrigo Sarah [facility] CPT-78064 Level 2 Est. Patient 22:01:11 ORCHESTRATOR Rodrigo Sarah [facility] CPT-69497 Level 3 Est. Patient 10:12:29 ORCHESTRATOR Rodrigo Sarah [facility]-38415 Level 3 Est. Patient 11:05:44 CDT Alexis Ordaz MD [facility]-41386 Level 3 Est. Patient 14:57:20 CDT [facility] C[facility]-49525 Level 3 Est. Patient 14:40:57 CDT Yolande Lindsay MD PhD [facility] CPT-48825 Level 3 Est. Patient 20:55:40 CDT Yolande Lindsay MD [facility] CPT-52955 Level 3 Est. Patient 12:42:38 ORCHESTRATOR Yolande Lindsay MD [facility] CPT-19250 Level 3 Est. Patient 11:54:49 ORCHESTRATOR Des Hines MD [facility] CPT-31678 Level 3 Est. Patient 17:06:38 CDT Dewayne PERAZA [facility] Procedures Code Procedure Name Date Entry Date Standard Description CPT-40009 Hip, complete, 2-3 views - XRAY USE ONLY 17:19:04 ORCHESTRATOR CPT-62142 Venipuncture Draw Fee 08:37:59 ORCHESTRATOR CPT-02011 Liver Profile - LAB USE ONLY 08:37:59 ORCHESTRATOR CPT-75118 Lipid - LAB USE ONLY 08:37:58 ORCHESTRATOR CPT-55110 First Vx - Ix admin via ID IM or jet injects without counseling by physician 11:52:31 CDT CPT-32744 Fluzone Preservative Free Intramuscular Suspension 11:52 :31 CDT CPT-05858 Foot, left, comp min 3V - XRAY USE ONLY 09:24:54 CDT CPT-42867 Abd single AP View - XRAY USE ONLY 11:16:17 CDT CPT-28748 T spine AP/ Lat - XRAY USE ONLY 09:34:21 CDT CPT-02196 Chest 2V Frontal and Lat - XRAY USE ONLY 10:48:51 CDT CPT-62028 LS spine comp w obliq 13:28:00 ORCHESTRATOR CPT-J1040 Depo Medrol 80 mg (Methyl Prednisolone Acetate) 10:51: 28 ORCHESTRATOR CPT-J1100 Decadron 8mg (Dexamethasone) 10:51:28 ORCHESTRATOR CPT-55295 Abx/Therapy Injection 10:51:28 ORCHESTRATOR CPT-J1100 Decadron 8mg (Dexamethasone) 21:02:30 ORCHESTRATOR CPT-J1040 Depo Medrol 80 mg (Methyl Prednisolone Acetate) 21:02: 30 ORCHESTRATOR [id number] Event Monitor - MC Transmission 09:12:32 CDT 08/06 [id number] Event Monitor - MC review and interp 09:12:32 CDT [id number] Event Monitor - MC recording 09:12:32 CDT CPT-68868 EKG Trac and Interp 16:50:22 CDT CPT-J1030 Depo Medrol 40 mg (Methyl Prednisolone Acetate) 17:05: 54 CDT CPT-J1100 Decadron 4mg (Dexamethasone) 17:05:54 CDT CPT-19165 Abx/Therapy Injection 17:05:54 CDT CPT-J1100 Decadron 4mg (Dexamethasone) 16:55:28 CDT CPT-J1030 Depo Medrol 40 mg (Methyl Prednisolone Acetate) 16:55: 28 CDT CPT-73901 Ankle Complete - Min 3V 15:58:50 CDT CPT-33509 Knee 3V 15:58:50 CDT CPT-40029 Hip comp min 2V 15:58:50 CDT CPT-J2270 Morphine Sulfate 10 mg 14:25:44 ORCHESTRATOR CPT-J2550 Phenergan 12.5 mg (Promethazine) 14:25:44 ORCHESTRATOR CPT-42367 Abx/Therapy Injection 14:25:44 ORCHESTRATOR CPT-J2550 Phenergan 12.5 mg (Promethazine) 14:08:03 ORCHESTRATOR CPT-J2270 Morphine Sulfate 10 mg 14:08:03 ORCHESTRATOR CPT-68556 Bladder Scan 15:00:38 CDT CPT-TCMM Transitional Care Mgmt-Moderate 09:52:22 CDT CPT-J1030 Depo Medrol 40 mg (Methyl Prednisolone Acetate) 10:55: 18 CDT CPT-J1100 Decadron 4mg (Dexamethasone) 10:55:18 CDT CPT-15929 Abx/Therapy Injection 10:55:18 CDT CPT-J1030 Depo Medrol 40 mg (Methyl Prednisolone Acetate) 10:22: 32 CDT CPT-J1100 Decadron 4mg (Dexamethasone) 10:22:32 CDT CPT-08669 Postop F/U Visit 14:37:13 CDT CPT-07218 Ankle Complete - Min 3V 17:11:58 CDT CPT-12078 Foot comp min 3V 17:11:58 CDT CPT-36165 Bladder Scan 09:56:58 CDT CPT-96473 Postop F/U Visit 09:56:58 CDT CPT-33597 Cystoscopy 09:02:42 CDT CPT-42219 Bladder Scan 09:02:42 CDT CPT-73694 Abd single AP View 16:00:35 CDT CPT-92988 Administration single or combination vaccine inc oral 10 :15:43 CDT CPT-88286 Influenza split virus > age 3 10:15:43 CDT CPT-10862 Nail Avulsion 09:24:57 CDT CPT-OV Office Visit 11:15:41 CDT CPT-88850 Abx/Therapy Injection 10:51:30 CDT CPT-J3301 Kenalog 40 mg (Triamcinolone Acetonide) 10:25:12 CDT CPT-J1100 Decadron 4mg (Dexamethasone) 10:25:12 CDT CPT-58175 Anoscopy diagnostic 10:36:12 CDT CPT-OV Office Visit 15:34:31 CDT CPT-95961 Abx/Therapy Injection 08:21:15 ORCHESTRATOR CPT-J1885 Toradol 60 mg (Ketorolac) 10:46:35 ORCHESTRATOR CPT-OV Office Visit 19:51:16 ORCHESTRATOR CPT-48652 Spec Collection and Handling Fee 14:34:18 ORCHESTRATOR CPT-PV Prev. Care Visit 14:19:18 ORCHESTRATOR CPT-39411 Postop F/U Visit 14:47:51 ORCHESTRATOR CPT-05201 Postop F/U Visit 15:15:14 ORCHESTRATOR CPT-50316 Postop F/U Visit 14:41:43 CDT CPT-35900 Postop F/U Visit 15:47:46 CDT CPT-OV Office Visit 15:27:23 CDT CPT-OV Office Visit 17:20:34 CDT CPT-05693 Abx/Therapy Injection 15:05:57 CDT CPT-J1100 Decadron 8mg (Dexamethasone) 14:44:57 CDT CPT-J1040 Depo Medrol 80 mg (Methyl Prednisolone Acetate) 14:44: 57 CDT CPT-JTINJ Joint Injection 10:17:37 CDT CPT-06120 Administration 2+ single or combination vaccines inc oral 13:01:46 ORCHESTRATOR CPT-12205 Administration single or combination vaccine inc oral 13 :01:46 ORCHESTRATOR CPT-25246 Pneumovax 13:01:46 ORCHESTRATOR CPT-93518 Influenza split virus > age 3 13:01:46 ORCHESTRATOR CPT-66048 Administration single or combination vaccine inc oral 08 :56:49 CDT CPT-52357 Tdap 08:56:49 CDT
--- OUTSIDE RECORDS SUMMARY | 2017-03-21 20:29 | XMS REPORT ---
Author Author [facility] Medical Staff Organization [facility] Address [address] [phone] Phone [phone] Care Team Providers Care Manpower Development Manager Name Role Phone EVELYN SPEARS MD PP [phone] Summary purpose TRANSITION OF CARE AUTO GENERATION [...] for this patient visit History of procedures Procedure Code Code Type Description Date Performed Performing Physician [id number] CPT-4 PT EVALUATION 02-10-2015 EULOGIO ERICKSON Functional status No functional or cognitive status [...]
--- OUTSIDE RECORDS SUMMARY | 2017-03-21 20:29 | XMS REPORT | Clinical Summary ---
Author Author Admin, E Organization [facility] Address Unknown Phone Unavailable Allergies, Adverse Reactions, Alerts Allergy Name Reaction Description Start Date Severity Status Provider VALENTIN Critical Active Rodrigo Fracharlottel [employer] CHLORHEXIDINE GLUCONATE tongue and gums swollen Critical Active Hoadante Otto RMA NORFLEX Rash Critical Active Silvestrellina Frazell [employer] TRAZODONE HCL sees things Critical Active Dewayne [...] screening mammogram KNEE PAIN 719.46 Resolved Yolande Lidnsay MD PhD Pain in joint involving lower [...] MD Lumbago Cough 786.2 Active Jillina Tyrel [employer] Cough 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 Jillina Frazellilian [employer] 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 Anemia 285.9 Active Gab Padron MD Anemia, unspecified Conjunctivitis 372.30 Active Jillnacho Sarah APRN Conjunctivitis, unspecified Sinusitis 473.9 Active Silvestrellina Frazell [employer] Unspecified sinusitis (chronic) Nonspecific syndrome suggestive of viral illness 079.99 Active Jillina Frazell [employer] Unspecified viral infection Laryngitis 464.00 Active Jillina Frazell [employer] Acute laryngitis without mention of obstruction Abdominal [...] Flank pain, left 789.09 Active Jillina Frazell [employer] Abdominal pain, other specified site; multiple sites Abdominal pain, generalized 789.07 Active Jillina Farshadzell [employer] Abdominal pain, generalized Back pain, thoracic region, left 724.1 Active Jillina Frazell [employer] Pain in thoracic spine Abdominal pain, left [...] ABDOMINAL PAIN, LEFT LOWER QUADRANT ICD-789.04 Inactive oYlande Lindsay MD PhD HEMATOCHEZIA ICD-578.1 Inactive Yolande [...] every 6 hrs prn pain TRAMADOL HCL 34619891839 Active Gab Padron MD Active PREDNISONE 20 MG TAB 2 tabs daily for 3 days, 1 tab daily for 3 days, 1/2 tab daily for 2 days PREDNISONE 62544616312 No Longer Active Gab Padron MD Active ZOFRAN ODT 4 MG TBDP 1 po q6hr PRN Nausea ONDANSETRON 52151074200 Active Gab Padron MD Active IBUPROFEN 600 MG TAB 1 tablet by mouth every 6 hours for 7 days, then 1 tablet every 6 hours as needed. Take with food IBUPROFEN 58304699372 Active Jillina Frazell [employer] Active BACTRIM DS 800-160 MG TAB 1 tab by mouth twice daily TRIMETHOPRIM-SULFAMETHOXAZOLE 10053355528 No Longer Active Gab Padron MD Active ADVAIR DISKUS 250-50 MCG/DOSE AEPB 1 puff BID FLUTICASONE- SALMETEROL 67683327658 Active Silvestrellnacho Sarah APRN Active LEVOTHYROXINE SODIUM 75 MCG TABS Take 1 tab daily LEVOTHYROXINE SODIUM 78248411516 No Longer Active Mariana FLEMING Active SYNTHROID 88 MCG ORAL TABS Take one by mouth daily LEVOTHYROXINE SODIUM 00624695078 Active Gab Padron MD Active CHERATUSSIN AC 100-10 MG/5ML SYRP 1 tsp by mouth every 4 hours as needed for cough GUAIFENESIN-CODEINE 31380309335 No Longer Active Gab Padron MD Active POLYTRIM 37302-4.1 UNIT/ML-% SOLN 1 gtt to affected eye q3h x 7 days POLYMYXIN B-TRIMETHOPRIM 10758116097 No Longer Active Gab Padron MD Active FLUTICASONE PROPIONATE 50 MCG/ACT SUSP 1 to 2 sprays each nostril daily 04/21 FLUTICASONE PROPIONATE 53397467632 No Longer Active Gab Padron MD Active TRILEPTAL 600 MG TABS Take one 1 tablet in Am and 1 tablet at night OXCARBAZEPINE 24582100939 Active Gab Padron MD Active CEFDINIR 300 MG CAPS 1 po BID x 10 days CEFDINIR 79604031847 No Longer Active Rodrigo Sarah APRN Active CEFTIN 500 MG TAB 1 twice a day CEFUROXIME AXETIL 55561743075 No Longer Active Gab Padron MD Active AZITHROMYCIN 250 MG TABS 2 po qd x 1 day, then 1 po qd x 4 days AZITHROMYCIN 57554836576 No Longer Active Rodrigo Sarah APRN Active CLARITIN 10 MG TAB 1 tablet by mouth daily as needed for allergies LORATADINE 72897035782 Active Rodrigo Sarah APRN Active OXYCODONE HCL 5 MG ORAL CAPS 1 TAB PO Q HS OXYCODONE HCL 40373463457 No Longer Active Rodrigo Sarah APRN Active NIASPAN 500 MG ORAL CR-TABS 1 pill nightly x 1 week, then 2 pills nightly x 1 week, then 3 pills nightly x 1 week, then 4 pills nightly NIACIN (ANTIHYPERLIPIDEMIC) 40269426800 No Longer Active Rodrigo Sarah APRN Active NIACIN 500 MG TABS 1 pill by mouth nightly x 1 week, then 2 pills x 1 week, then 3 pills x 1 week, then 4 pills nightly - take after evening meal, with applesauce or an apple NIACIN 24329040845 No Longer Active Yolande Lindsay MD PhD Active FISH OIL 1000 MG CAPS 3 pills daily OMEGA-3 FATTY ACIDS 61303250449 Active Yolande Lindsay MD PhD Active TRIAMCINOLONE ACETONIDE 0.1 % CREA apply bid sparingly to rash TRIAMCINOLONE ACETONIDE 40564754053 Active Yolande Lindsay MD PhD Active FUROSEMIDE 20 MG TAB 1 tablet by mouth daily FUROSEMIDE 20797989255 Active Tisha Lambert APRN Active LISINOPRIL 20 MG ORAL TABS 1 tab by mouth daily LISINOPRIL 78675348044 Active Tisha Lambert APRN Active FUROSEMIDE 20 MG TABS 1 pill by mouth daily, for edema FUROSEMIDE 37197845963 No Longer Active Yolande Lindsay MD PhD Active ATORVASTATIN CALCIUM 10 MG TABS 1 pill by mouth daily, for cholesterol 09/06 ATORVASTATIN CALCIUM 61380299572 Active Gab Padron MD Active CALCIUM 600+D PLUS MINERALS 600-400 MG-UNIT ORAL CHEW 1 tab by mouth daily CALCIUM CARBONATE-VIT D-MIN 69056691674 No Longer Active Yolande Lindsay MD PhD Active CYCLOBENZAPRINE HCL 10 MG TABS 1 tablet by mouth three times daily as needed for muscle spasm/pain CYCLOBENZAPRINE HCL 88865516435 Active Yolande Lindsay MD PhD Active ONDANSETRON 4 MG TBDP 1 q4h PRN nausea ONDANSETRON 66053961506 Active Yolande Lindsay MD PhD Active ADULT ASPIRIN EC LOW STRENGTH 81 MG TBEC Take 1 tablet by mouth daily 2014 ASPIRIN 58170321186 No Longer Active Yolande Lindsay MD PhD Active ZOFRAN ODT 4 MG TBDP 1 pill dissolved by mouth every 4 hours if needed for nausea ONDANSETRON 12773703370 No Longer Active Yolande Lindsay MD PhD Active CEFTIN 500 MG TAB 1 twice a day CEFUROXIME AXETIL 35535418411 No Longer Active Yolande Lindsay MD PhD Active ALBUTEROL SULFATE 0.083 % NEBU SOLN one vial per nebulizer every 4-6 hours as needed ALBUTEROL SULFATE 30944410741 No Longer Active Alexis Ordaz MD Active DOXYCYCLINE HYCLATE 100 MG CAP 1 cap by mouth twice daily DOXYCYCLINE HYCLATE 08405244381 No Longer Active Yolande Lindsay MD PhD Active CYCLOBENZAPRINE HCL 10 MG TABS 1/2 - 1 tab by mouth three times daily if needed for spasms/pain CYCLOBENZAPRINE HCL 00867307340 No Longer Active Yolande Lindsay MD PhD Active AZITHROMYCIN 250 MG TABS 2 pills on day 1, then 1 pill daily x 4 days AZITHROMYCIN 81248255805 No Longer Active Yolande Lindsay MD PhD Active XOPENEX 1.25 MG/3ML NEBU 1 neb every 4 hours if needed for cough/congestion LEVALBUTEROL HCL 58147381715 No Longer Active Yolande Lindsay MD PhD Active DOXYCYCLINE HYCLATE 100 MG TAB 1 tab twice a day for 14 days 2013 DOXYCYCLINE HYCLATE 35312704820 No Longer Active Yolande Lindsay MD PhD Active PREVACID 30 MG CPDR Take 1 tablet by mouth daily-PRN LANSOPRAZOLE 51897358885 No Longer Active Yolande Lindsay MD PhD Active PA VITAMIN D-3 2000 UNIT CAPS 1 CAP PO DAILY CHOLECALCIFEROL 73689105121 No Longer Active Yolande Lindsay MD PhD Active CEFDINIR 300 MG CAPS by mouth twice a day CEFDINIR 18782010755 No Longer Active Gab Padron MD Active TOPAMAX 50 MG TABS 1 PO twice daily TOPIRAMATE 08558392644 Active Yolande Lindsay MD PhD Active AZITHROMYCIN 250 MG TABS 2 po qd x 1 day, then 1 po qd x 4 days AZITHROMYCIN 81966928049 No Longer Active Yolande Lindsay MD PhD Active DICLOFENAC SODIUM 75 MG TBEC 1 tablet by q 12 hours PRN headaches DICLOFENAC SODIUM 64724836737 No Longer Active Yolande Lindsay MD PhD Active FLONASE 50 MCG/ACT SUSP 1 spray each nostril am and hs FLUTICASONE PROPIONATE 67895270873 No Longer Active Todd Callaway MD Active ANUSOL-HC 25 MG SUPPOSITORY 1 rectally twice a day as needed for hemorrhoids HYDROCORTISONE JAYDEN (RECTAL) 51225203412 No Longer Active Yolande Lindsay MD PhD Active ANUSOL-HC 25 MG SUPPOSITORY 1 suppository rectally each evening as needed for anal fissure HYDROCORTISONE JAYDEN (RECTAL) 55638791031 No Longer Active LONNIE Iglesias Active VALIUM 5 MG TAB 1 po 30 minutes prior to your MRI DIAZEPAM 43342499870 No Longer Active Bozena LONNIE Coleman Active METHOCARBAMOL 750 MG TABS 1 PO QID PRN METHOCARBAMOL 62782894085 No Longer Active Daphne Wetzel [employer] Active NITROSTAT 0.4 MG SUBL as directed NITROGLYCERIN 42985768646 No Longer Active Rodrigo Sarah [employer] Active ROBAXIN-750 750 MG TABS 2 four times a day for 3 days as needed for muscle spasm, then 1 four times a day as needed METHOCARBAMOL 37895674832 No Longer Active Rodrigo Sarah APRN Active HYDROCODONE-ACETAMINOPHEN 5-325 MG TABS 1 q 4-6 hrs prn HYDROCODONE-ACETAMINOPHEN 81222770901 No Longer Active Rodrigo Sarah APRN Active VERAPAMIL HCL CR 180 MG CR-TABS TAKE 1 TAB DAILY VERAPAMIL HCL 53355776119 No Longer Active Yolande Lindsay MD PhD Active BACTRIM DS 800-160 MG TAB 1 tab by mouth twice daily TRIMETHOPRIM-SULFAMETHOXAZOLE 68474910799 No Longer Active Yolande Lindsay MD PhD Active NEXIUM 40 MG PACK 1 by mouth daily ESOMEPRAZOLE MAGNESIUM 67663877551 No Longer Active Des Hines MD Active EPIPEN 2-CHARLETTE 0.3 MG/0.3ML OMARI as need for allergic reaction EPINEPHRINE 62388125627 Active Yolande Lindsay MD PhD Active NEXIUM 40 MG CPDR 1 PO Q D DAY ESOMEPRAZOLE MAGNESIUM 76586296071 No Longer Active Sadia Perry RN Active NEXIUM 40 MG PACK 1 by mouth daily NEXIUM 40 MG PACK ESOMEPRAZOLE MAGNESIUM Inactive VERAPAMIL HCL CR 180 MG CR-TABS TAKE 1 TAB DAILY VERAPAMIL HCL CR 180 MG CR-TABS VERAPAMIL HCL Inactive HYDROCODONE-ACETAMINOPHEN 5-325 MG TABS 1 q 4-6 hrs prn HYDROCODONE-ACETAMINOPHEN 5-325 MG TABS 259504 HYDROCODONE-ACETAMINOPHEN Inactive ROBAXIN-750 750 MG TABS 2 four times a day for 3 days as needed for muscle spasm, then 1 four times a day as needed ROBAXIN-750 750 MG TABS 062369 METHOCARBAMOL Inactive NITROSTAT 0.4 MG SUBL as directed NITROSTAT 0.4 MG SUBL 124282 NITROGLYCERIN Inactive METHOCARBAMOL 750 MG TABS 1 PO QID PRN METHOCARBAMOL 750 MG TABS 057756 METHOCARBAMOL Inactive VALIUM 5 MG TAB 1 po 30 minutes prior to your MRI VALIUM 5 MG TAB 086568 DIAZEPAM Inactive ANUSOL-HC 25 MG SUPPOSITORY 1 suppository rectally each evening as needed for anal fissure ANUSOL-HC 25 MG SUPPOSITORY 7769975 HYDROCORTISONE JAYDEN (RECTAL) Inactive ANUSOL-HC 25 MG SUPPOSITORY 1 rectally twice a day as needed for hemorrhoids ANUSOL-HC 25 MG SUPPOSITORY 0472238 HYDROCORTISONE JAYDEN (RECTAL) Inactive FLONASE 50 MCG/ACT SUSP 1 spray each nostril am and hs FLONASE 50 MCG/ACT SUSP FLUTICASONE PROPIONATE Inactive DICLOFENAC SODIUM 75 MG TBEC 1 tablet by q 12 hours PRN headaches DICLOFENAC SODIUM 75 MG TBEC 704592 DICLOFENAC SODIUM Inactive PA VITAMIN D-3 2000 UNIT CAPS 1 CAP PO DAILY PA VITAMIN D-3 2000 UNIT CAPS CHOLECALCIFEROL Inactive PREVACID 30 MG CPDR Take 1 tablet by mouth daily-PRN PREVACID 30 MG CPDR 492078 LANSOPRAZOLE Inactive DOXYCYCLINE HYCLATE 100 MG TAB 1 tab twice a day for 14 days 2013 DOXYCYCLINE HYCLATE 100 MG TAB 0148327 DOXYCYCLINE HYCLATE Inactive XOPENEX 1.25 MG/3ML NEBU 1 neb every 4 hours if needed for cough/congestion XOPENEX 1.25 MG/3ML NEBU 958432 LEVALBUTEROL HCL Inactive CYCLOBENZAPRINE HCL 10 MG TABS 1/2 - 1 tab by mouth three times daily if needed for spasms/pain CYCLOBENZAPRINE HCL 10 MG TABS 836763 CYCLOBENZAPRINE HCL Inactive ALBUTEROL SULFATE 0.083 % NEBU SOLN one vial per nebulizer every 4-6 hours as needed ALBUTEROL SULFATE 0.083 % NEBU SOLN 972221 ALBUTEROL SULFATE Inactive CEFTIN 500 MG TAB 1 twice a day CEFTIN 500 MG TAB 521194 CEFUROXIME AXETIL Inactive ZOFRAN ODT 4 MG TBDP 1 pill dissolved by mouth every 4 hours if needed for nausea ZOFRAN ODT 4 MG TBDP 814311 ONDANSETRON Inactive ADULT ASPIRIN EC LOW STRENGTH 81 MG TBEC Take 1 tablet by mouth daily 2014 ADULT ASPIRIN EC LOW STRENGTH 81 MG TBEC 717714 ASPIRIN Inactive CALCIUM 600+D PLUS MINERALS 600-400 [...] or an apple NIACIN 500 MG TABS 860590 NIACIN Inactive NIASPAN 500 MG ORAL CR-TABS 1 pill nightly x 1 week, then 2 pills nightly x 1 week, then 3 pills nightly x 1 week, then 4 pills nightly NIASPAN 500 MG ORAL CR-TABS NIACIN (ANTIHYPERLIPIDEMIC) Inactive OXYCODONE HCL 5 MG ORAL CAPS 1 TAB PO Q HS OXYCODONE HCL 5 MG ORAL CAPS 0790100 OXYCODONE HCL Inactive FLUTICASONE PROPIONATE 50 MCG/ACT SUSP 1 to 2 sprays each nostril daily 04/21 FLUTICASONE PROPIONATE 50 MCG/ACT SUSP 1860766 FLUTICASONE PROPIONATE Inactive POLYTRIM 02380-6.1 UNIT/ML-% SOLN 1 gtt to affected eye q3h x 7 days POLYTRIM 47263-7.1 UNIT/ML-% SOLN 295757 POLYMYXIN B- TRIMETHOPRIM Inactive CHERATUSSIN AC 100-10 MG/5ML SYRP 1 tsp by mouth every 4 hours as needed for cough CHERATUSSIN AC 100-10 MG/5ML SYRP 047929 GUAIFENESIN-CODEINE Inactive LEVOTHYROXINE SODIUM 75 MCG TABS Take 1 tab daily LEVOTHYROXINE SODIUM 75 MCG TABS 496413 LEVOTHYROXINE SODIUM Inactive BACTRIM DS 800-160 MG TAB 1 tab by mouth twice daily BACTRIM DS 800-160 MG TAB 827986 TRIMETHOPRIM-SULFAMETHOXAZOLE Inactive AZITHROMYCIN 250 MG TABS 2 po qd x 1 day, then 1 po qd x 4 days AZITHROMYCIN 250 MG TABS 4457608 AZITHROMYCIN Inactive CEFDINIR 300 MG CAPS by mouth twice a day CEFDINIR 300 MG CAPS 881543 CEFDINIR Inactive AZITHROMYCIN 250 MG TABS 2 pills on day 1, then 1 pill daily x 4 days AZITHROMYCIN 250 MG TABS 2861045 AZITHROMYCIN Inactive DOXYCYCLINE HYCLATE 100 MG CAP 1 cap by mouth twice daily DOXYCYCLINE HYCLATE 100 MG CAP 1672668 DOXYCYCLINE HYCLATE Inactive FUROSEMIDE 20 MG TABS 1 pill by mouth daily, for edema FUROSEMIDE 20 MG TABS 918737 FUROSEMIDE Inactive AZITHROMYCIN 250 MG TABS 2 po qd x 1 day, then 1 po qd x 4 days AZITHROMYCIN 250 MG TABS 2206987 AZITHROMYCIN Inactive CEFTIN 500 MG TAB 1 twice a day CEFTIN 500 MG TAB 149325 CEFUROXIME AXETIL Inactive CEFDINIR 300 MG CAPS 1 po BID x 10 days CEFDINIR 300 MG CAPS 538929 CEFDINIR Inactive BACTRIM DS 800-160 MG TAB 1 tab by mouth twice daily BACTRIM DS 800-160 MG TAB 807626 TRIMETHOPRIM-SULFAMETHOXAZOLE Inactive PREDNISONE 20 MG TAB 2 tabs daily for 3 days, 1 tab daily for 3 days, 1/2 tab daily for 2 days PREDNISONE 20 MG TAB 812079 PREDNISONE Inactive Immunizations Vaccine Administration Date Value Standard Description Seasonal influenza vaccine, injectable, containing preservative, for > 3 years old (Afluria, FluLaval, Fluzone, Fluvirin, Fluarix, Agriflu(>=18 yo)) Fluzone (>3 yrs.) [MSR786] Influenza, seasonal, injectable influenza immunization (Flu Vax) has been administered Influenza - Unspecified Formulation [CVX88] influenza virus vaccine, unspecified formulation pneumococcal immunization administered Pneumovax 23 [CVX33] pneumococcal polysaccharide vaccine, 23 valent Seasonal influenza vaccine, injectable, containing preservative, for > 3 years old (Afluria, FluLaval, Fluzone, Fluvirin, Fluarix, Agriflu(>=18 yo)) Fluzone (>3 yrs.) [JIT578] Influenza, seasonal, injectable dT (Diphtheria and Tetanus) booster given given Td(adult) unspecified formulation Boostrix (Tetanus toxoid, reduced diphtheria toxoid and acellular pertussis vaccine, adsorbed), booster Boostrix [DEY057] tetanus toxoid, reduced diphtheria toxoid, and acellular [...] Panel - Chemistry sodium, serum 142 mmol/L 869-716 6400/06/30 potassium, serum 4.4 mmol/L 3.5-5.2 chloride, serum [...] 0.80 ng/dL 0.76-1.46 sodium, serum 143 mmol/L 587-806 4808/05/02 carbon dioxide, venous blood 25.6 mmol/L 21.0-32.0 [...] PANEL - Chemistry cholesterol, serum 166 mg/dL 667-093 9647/12/06 triglyceride, serum, fasting 86 mg/dL 30-200 HDL [...] Negative mg/dL Negative sodium, serum 142 mmol/L 384-629 5987/07/18 carbon dioxide, venous blood 27.8 mmol/L 21.0-32.0 [...] negative Encounters Code Encounter Date Provider Facility CPT-97558 Level 3 Est. Patient 17:43:55 SCENIC ARTIST Gab Padron MD [facility] CPT-56748 Level 3 Est. Patient 17:07:49 SCENIC ARTIST Jared Og MD [facility] CPT-18945 Level 4 Est. Patient 19:55:18 SCENIC ARTIST Jared Og MD [facility] CPT-57141 Level 3 Est. Patient 20:13:34 GLO Og MD [facility] CPT-19524 Level 4 Est. Patient 16:31:27 CDT Gab Padron MD [facility] CPT-67746 Level 2 Est. Patient 12:23:38 CDT Jared Og MD [facility] CPT-10419 Level 3 Est. Patient 11:01:51 CDT Gab Padron MD [facility] CPT-99174 Level 3 Est. Patient 15:27:02 CDT Jared Og MD [facility] CPT-79127 Level 4 Est. Patient 09:25:27 CDT Gab Padron MD [facility] CPT-54319 Level 3 Est. Patient 10:29:41 CDT Rodrigo Sarah [facility] CPT-40396 Level 4 Est. Patient 17:51:05 CDT Gab Padron MD [facility]-85253 Level 3 Est. Patient 14:18:08 CDT Gab Padron MD [facility] CPT-69379 Level 4 Est. Patient 10:18:54 CDT Gab Padron MD [facility] CPT-19738 Level 3 Est. Patient 11:30:07 CDT Rodrigo Sarah [facility] CPT-84841 Level 4 Est. Patient 21:02:30 SCENIC ARTIST Gab Padron MD [facility] CPT-50043 Level 3 Est. Patient 11:02:19 SCENIC ARTIST Gab Padron MD [facility] CPT-44376 Level 4 Est. Patient 22:24:31 SCENIC ARTIST Gab Padron MD [facility] CPT-65619 Level 3 Est. Patient 18:33:46 SCENIC ARTIST Gab Padron MD [facility] CPT-69693 Level 3 Est. Patient 16:19:11 CDT Yolande Lindsay MD [facility] CPT-43371 Level 3 Est. Patient 18:59:14 CDT Yolande Lindsay MD [facility] CPT-62987 Level 4 Est. Patient 21:29:26 CDT Yolande Lindsay MD [facility]-92496 Level 3 Est. Patient 07:37:45 CDT Yolande Lindsay MD [facility]-64006 Level 3 Est. Patient 17:03:46 CDT Yolande Lindsay MD [facility]-78706 Level 4 Est. Patient 20:02:13 SCENIC ARTIST Yolande Lindsay MD [facility]-63661 Level 3 Est. Patient 16:02:07 SCENIC ARTIST Alexis Ordaz MD [facility]-73101 Level 3 Est. Patient 12:41:24 SCENIC ARTIST Yolande Lindsay MD [facility] named [facility]-03136 Level 3 Est. Patient 15:41:20 SCENIC ARTIST Yolande Lindsay MD [facility] named [facility]-70739 Level 3 Est. Patient 13:20:02 SCENIC ARTIST Yolande Lindsay MD [facility] CPT-98809 Level 3 Est. Patient 15:00:38 CDT Jared Og MD [facility]-04487 Level 3 Est. Patient 10:22:32 CDT Yolande Lindsay MD [facility] named [facility]-26794 Level 3 Est. Patient 17:12:58 CDT Yolande Lindsay MD [facility] CPT-15382 Level 4 Est. Patient 13:30:58 CDT Yolande Lindsay MD [facility] CPT-82871 Level 4 New Patient 09:02:42 CDT Jared Og MD [facility]-67598 Level 3 Est. Patient 08:19:07 CDT Yolande Lindsay MD [facility]-81382 Level 3 Est. Patient 12:00:13 SCENIC ARTIST Gab Padron MD [facility]-44784 Level 3 Est. Patient 16:15:23 SCENIC ARTIST Yolande Lindsay MD [facility]-21079 Level 2 Est. Patient 19:47:15 CDT Yolande Lindsay MD [facility]-93440 Level 3 Est. Patient 21:38:31 CDT Yolande Lindsay MD [facility]-65499 Level 3 Est. Patient 10:25:12 CDT Adiel PERAZA [facility] CPT-68695 Level 4 Est. Patient 10:51:58 CDT Yolande Lindsay MD [facility]-23100 Level 3 Est. Patient 14:04:55 SCENIC ARTIST Rodrigo Sarah [facility]-47101 Level 3 Est. Patient 10:46:35 SCENIC ARTIST Rodrigo Sarah [facility] CPT-84114 Level 3 Est. Patient 14:24:37 SCENIC ARTIST Yolande Lindsay MD [facility]-50988 Level 3 Est. Patient 17:41:58 SCENIC ARTIST Yolande Lindsay MD [facility]-91077 Level 2 Est. Patient 22:01:41 SCENIC ARTIST Rodrigo Sarah [facility] CPT-45862 Level 2 Est. Patient 22:01:11 SCENIC ARTIST Rodrigo Sarah [facility] CPT-97097 Level 3 Est. Patient 10:12:29 SCENIC ARTIST Rodrigo Sarah [facility]-07458 Level 3 Est. Patient 11:05:44 CDT Alexis Ordaz MD [facility]-76121 Level 3 Est. Patient 14:57:20 CDT Yolande Lindsay MD [facility] CPT-35327 Level 3 Est. Patient 14:40:57 CDT Yolande Lindsay MD PhD [facility] CPT-06678 Level 3 Est. Patient 20:55:40 CDT Yolande Lindsay MD [facility] CPT-06354 Level 3 Est. Patient 12:42:38 SCENIC ARTIST Yolande Lindsay MD [facility] CPT-60258 Level 3 Est. Patient 11:54:49 SCENIC ARTIST Des Hines MD [facility] CPT-62172 Level 3 Est. Patient 17:06:38 CDT Dewayne PERAZA [facility] Procedures Code Procedure Name Date Entry Date Standard Description CPT-41110 Hip, complete, 2-3 views - XRAY USE ONLY 17:19:04 SCENIC ARTIST CPT-14341 Venipuncture Draw Fee 08:37:59 SCENIC ARTIST CPT-72543 Liver Profile - LAB USE ONLY 08:37:59 SCENIC ARTIST CPT-10489 Lipid - LAB USE ONLY 08:37:58 SCENIC ARTIST CPT-83812 First Vx - Ix admin via ID IM or jet injects without counseling by physician 11:52:31 CDT CPT-99793 Fluzone Preservative Free Intramuscular Suspension 11:52 :31 CDT CPT-00508 Foot, left, comp min 3V - XRAY USE ONLY 09:24:54 CDT CPT-37721 Abd single AP View - XRAY USE ONLY 11:16:17 CDT CPT-71687 T spine AP/ Lat - XRAY USE ONLY 09:34:21 CDT CPT-34399 Chest 2V Frontal and Lat - XRAY USE ONLY 10:48:51 CDT CPT-56426 LS spine comp w obliq 13:28:00 SCENIC ARTIST CPT-J1040 Depo Medrol 80 mg (Methyl Prednisolone Acetate) 10:51: 28 SCENIC ARTIST CPT-J1100 Decadron 8mg (Dexamethasone) 10:51:28 SCENIC ARTIST CPT-04613 Abx/Therapy Injection 10:51:28 SCENIC ARTIST CPT-J1100 Decadron 8mg (Dexamethasone) 21:02:30 SCENIC ARTIST CPT-J1040 Depo Medrol 80 mg (Methyl Prednisolone Acetate) 21:02: 30 SCENIC ARTIST [id number] Event Monitor - MC Transmission 09:12:32 CDT 08/06 [id number] Event Monitor - MC review and interp 09:12:32 CDT [id number] Event Monitor - MC recording 09:12:32 CDT CPT-99568 EKG Trac and Interp 16:50:22 CDT CPT-J1030 Depo Medrol 40 mg (Methyl Prednisolone Acetate) 17:05: 54 CDT CPT-J1100 Decadron 4mg (Dexamethasone) 17:05:54 CDT CPT-75030 Abx/Therapy Injection 17:05:54 CDT CPT-J1100 Decadron 4mg (Dexamethasone) 16:55:28 CDT CPT-J1030 Depo Medrol 40 mg (Methyl Prednisolone Acetate) 16:55: 28 CDT CPT-86233 Ankle Complete - Min 3V 15:58:50 CDT CPT-52317 Knee 3V 15:58:50 CDT CPT-71165 Hip comp min 2V 15:58:50 CDT CPT-J2270 Morphine Sulfate 10 mg 14:25:44 SCENIC ARTIST CPT-J2550 Phenergan 12.5 mg (Promethazine) 14:25:44 SCENIC ARTIST CPT-67342 Abx/Therapy Injection 14:25:44 SCENIC ARTIST CPT-J2550 Phenergan 12.5 mg (Promethazine) 14:08:03 SCENIC ARTIST CPT-J2270 Morphine Sulfate 10 mg 14:08:03 SCENIC ARTIST CPT-21952 Bladder Scan 15:00:38 CDT CPT-TCMM Transitional Care Mgmt-Moderate 09:52:22 CDT CPT-J1030 Depo Medrol 40 mg (Methyl Prednisolone Acetate) 10:55: 18 CDT CPT-J1100 Decadron 4mg (Dexamethasone) 10:55:18 CDT CPT-95850 Abx/Therapy Injection 10:55:18 CDT CPT-J1030 Depo Medrol 40 mg (Methyl Prednisolone Acetate) 10:22: 32 CDT CPT-J1100 Decadron 4mg (Dexamethasone) 10:22:32 CDT CPT-83433 Postop F/U Visit 14:37:13 CDT CPT-05355 Ankle Complete - Min 3V 17:11:58 CDT CPT-18266 Foot comp min 3V 17:11:58 CDT CPT-29374 Bladder Scan 09:56:58 CDT CPT-26546 Postop F/U Visit 09:56:58 CDT CPT-08018 Cystoscopy 09:02:42 CDT CPT-47746 Bladder Scan 09:02:42 CDT CPT-88857 Abd single AP View 16:00:35 CDT CPT-01700 Administration single or combination vaccine inc oral 10 :15:43 CDT CPT-84358 Influenza split virus > age 3 10:15:43 CDT CPT-84048 Nail Avulsion 09:24:57 CDT CPT-OV Office Visit 11:15:41 CDT CPT-41386 Abx/Therapy Injection 10:51:30 CDT CPT-J3301 Kenalog 40 mg (Triamcinolone Acetonide) 10:25:12 CDT CPT-J1100 Decadron 4mg (Dexamethasone) 10:25:12 CDT CPT-65645 Anoscopy diagnostic 10:36:12 CDT CPT-OV Office Visit 15:34:31 CDT CPT-35850 Abx/Therapy Injection 08:21:15 SCENIC ARTIST CPT-J1885 Toradol 60 mg (Ketorolac) 10:46:35 SCENIC ARTIST CPT-OV Office Visit 19:51:16 SCENIC ARTIST CPT-93297 Spec Collection and Handling Fee 14:34:18 SCENIC ARTIST CPT-PV Prev. Care Visit 14:19:18 SCENIC ARTIST CPT-88275 Postop F/U Visit 14:47:51 SCENIC ARTIST CPT-89075 Postop F/U Visit 15:15:14 SCENIC ARTIST CPT-12535 Postop F/U Visit 14:41:43 CDT CPT-53316 Postop F/U Visit 15:47:46 CDT CPT-OV Office Visit 15:27:23 CDT CPT-OV Office Visit 17:20:34 CDT CPT-37339 Abx/Therapy Injection 15:05:57 CDT CPT-J1100 Decadron 8mg (Dexamethasone) 14:44:57 CDT CPT-J1040 Depo Medrol 80 mg (Methyl Prednisolone Acetate) 14:44: 57 CDT CPT-JTINJ Joint Injection 10:17:37 CDT CPT-63462 Administration 2+ single or combination vaccines inc oral 13:01:46 SCENIC ARTIST CPT-27582 Administration single or combination vaccine inc oral 13 :01:46 SCENIC ARTIST CPT-13465 Pneumovax 13:01:46 SCENIC ARTIST CPT-38322 Influenza split virus > age 3 13:01:46 SCENIC ARTIST CPT-65921 Administration single or combination vaccine inc oral 08 :56:49 CDT CPT-92858 Tdap 08:56:49 CDT
--- OUTSIDE RECORDS SUMMARY | 2017-03-21 20:29 | XMS REPORT ---
Author Author [facility] Medical Staff Organization [facility] Address [address] [place] [id number] Phone [phone] Care Team Providers Care Foley Artist Name Role Phone LENKA HUTSON, EUNICE PP [phone] Summary purpose TRANSITION OF CARE AUTO GENERATION Chief Complaint and Reason for Visit Admit Diagnosis 1 LUMBAGO Problem list No authorized problems tracked for [...] Relevant diagnostic tests and/or laboratory data RESULTS Radiology Results [id number] MRI L-SPINE W/O CONT PACs Image DATE OF EXAM: Nov 18 2014 MRI 0085-MRI L SPINE WO CONTRAST : RADIOLOGY REPORT DATE OF SERVICE:11/18/14 HISTORY:Patient has worsening chronic low back pain with left leg radiculopathy and numbness in toes, no known injury. [facility]ON[facility] IMAGING OF THE LUMBAR SPINE WITHOUT CONTRAST 1345 HOURS Multiplanar, multisequence study was performed. There is Grade 3 spondylolisthesis of L5 on S1. Bilateral spondylolysis is seen at this level. This is chronic and stable from 08/01/13. There is retrolisthesis of T12-L1, measuring approximately 3 mm.This is chronic. T11-T12 and T12-L1 interspaces are moderately narrowed. This is chronic. There is marked narrowing of the L5-S1 interspace. No disc bulging or protrusion is seen at L1-L2, L2-L3, L3-L4 or L4-L5, and the central canal and neural foramina are widely patent at these levels. At L5-S1, there is central canal lower limits of normal in the anterior-posterior plane. The neural foramina are markedly narrowed bilaterally at L5-S1. All other neural foramina are widely patent. IMPRESSION:Grade 3 spondylolisthesis of L5 on S1 with spondylolysis at L5. Central canal is lower limits of normal in the anterior-posterior plane at L5-S1. There is no disc protrusion of the disc in relation to S1 at L5-S1. Remaining discs are normal. There is mild chronic retrolisthesis of T12 on L1. No paraspinal abnormality is appreciated. Marked degenerative change of facet joints is seen in L5-S1, and there is moderate to prominent degenerative change in facet joints at L4-L5 and L3-L4. Overall, the appearance of the study is identical to 08/01/13 exam. There are some cysts in both kidneys. DO ARIS Cruz/lenny 11/18/2014 14:40:00 / 11/18/2014 15:08:05 cc:Dr. Pk Nicholson This document has been electronically Signed by: On: DATE OF EXAM: Nov 18 2014 MRI 0085-MRI L SPINE WO CONTRAST : RADIOLOGY REPORT DATE OF SERVICE:11/18/14 HISTORY:Patient has worsening chronic low back pain with left leg radiculopathy and numbness in toes, no known injury. MAGNETIC RESONANCE IMAGING OF THE LUMBAR SPINE WITHOUT CONTRAST 1345 HOURS Multiplanar, multisequence study was performed. There is Grade 3 spondylolisthesis of L5 on S1. Bilateral spondylolysis is seen at this level. This is chronic and stable from 08/01/13. There is retrolisthesis of T12-L1, measuring approximately 3 mm.This is chronic. T11-T12 and T12-L1 interspaces are moderately narrowed. This is chronic. There is marked narrowing of the L5-S1 interspace. No disc bulging or protrusion is seen at L1-L2, L2-L3, L3-L4 or L4-L5, and the central canal and neural foramina are widely patent at these levels. At L5-S1, there is central canal lower limits of normal in the anterior-posterior plane. The neural foramina are markedly narrowed bilaterally at L5-S1. All other neural foramina are widely patent. IMPRESSION:Grade 3 spondylolisthesis of L5 on S1 with spondylolysis at L5. Central canal is lower limits of normal in the anterior-posterior plane at L5-S1. There is no disc protrusion of the disc in relation to S1 at L5-S1. Remaining discs are normal. There is mild chronic retrolisthesis of T12 on L1. No paraspinal abnormality is appreciated. Marked degenerative change of facet joints is seen in L5-S1, and there is moderate to prominent degenerative change in facet joints at L4-L5 and L3-L4. Overall, the appearance of the study is identical to 08/01/13 exam. There are some cysts in both kidneys. Chris Lafleur DO MW/pb 11/18/2014 14:40:00 / 11/18/2014 15:08:05 cc:Dr. Pk Nicholson This document has been electronically Signed by: CHRIS LAFLEUR DO On: Nov 19 2014 10:49A Result Amended on 2014-11-19 at 10:49:07. Previous status was [place]. History of procedures Procedure Code Code Type Description Date Performed Performing Physician [id number] CPT-4 MRI LUMBAR SPINE W/O DYE 11-18-2014 PK NICHOLSON Functional status No functional or cognitive status [...]
--- OUTSIDE RECORDS SUMMARY | 2017-03-21 20:31 | XMS REPORT | Clinical Summary ---
Author Author Admin, MARGRET Organization [employer] Address Unknown Phone Unavailable Allergies, Adverse Reactions, Alerts Allergy Name Reaction Description Start Date Severity Status Provider VALENTIN Critical Active Rodrigo Montemayorl LEAD RECOVERER CHLORHEXIDINE GLUCONATE tongue and gums swollen Critical Active Hoa Kabaford RMA NORFLEX Rash Critical Active Rowenaina Farshadzell LEAD RECOVERER TRAZODONE HCL sees things Critical Active Dewayne [...] Abdominal pain, epigastric DYSPHAGIA UNSPECIFIED 787.20 Resolved Yoladne Lindsay MD PhD Dysphagia, unspecified ABDOMINAL PAIN, [...] Active Hoa Otto [facility] Old myocardial infarction Pelvic pain 789.09 Resolved [...] mass in breast Renal mass 593.9 Resolved aGb Padron MD Unspecified disorder of kidney and [...] PhD ALLERGIC REACTION, ACUTE ICD-995.3 Inactive Alexis Oradz MD GERD ICD-530.81 Inactive Todd Callaway MD [...] COCCYX ICD-724.79 Inactive Yolande Lindsay MD PhD DYSPHAGIA UNSPECIFIED [...] EPIGASTRIC ICD-789.06 Inactive Yolande Lindsay MD PhD Foot pain, right ICD-729.5 Inactive Yolande Lindsay MD PhD Tick bite ICD-989.5 Inactive Yolande Lindsay MD PhD Hematuria ICD-599.70 Inactive Yolande Lindsay MD PhD Ankle pain, right ICD-719.47 Inactive Yolande Lindsay MD PhD Sexual dysfunction ICD-302.70 Inactive Gab Padron MD Muscle spasm, back ICD-724.8 Inactive Yolande Lindsay MD PhD Sinusitis, acute ICD-461.9 Inactive Yolande Lindsay MD PhD URI ICD-465.9 Inactive Yolande Lindsay MD PhD 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 Take with food IBUPROFEN 44385853256 No Longer Active Tisha Lambert APRN Active PREDNISONE 20 MG TAB 1 tab twice daily for 3 day, then one daily for three days PREDNISONE 61107988778 No Longer Active Tisha Lambert APRN Active TRIAMCINOLONE ACETONIDE 0.1 % CREA apply bid sparingly to rash TRIAMCINOLONE ACETONIDE 46703687012 No Longer Active Gab Padron MD Active TRAMADOL HCL 50 MG TABS 1 tab po every 6 hrs prn pain TRAMADOL HCL 70055639538 No Longer Active Gab Padron MD Active BACTRIM DS 800-160 MG TAB 1 tab by mouth twice daily TRIMETHOPRIM-SULFAMETHOXAZOLE 96580014940 No Longer Active Tisha Lambert APRN Active ADVAIR DISKUS 250-50 MCG/DOSE AEPB 1 puff BID FLUTICASONE-SALMETEROL 35229410903 No Longer Active Todd Callaway MD Active ONDANSETRON 4 MG TBDP 1 q4h PRN nausea ONDANSETRON 26090286119 No Longer Active LONNIE Iglesias Active FISH OIL 1000 MG CAPS 3 pills daily OMEGA-3 FATTY ACIDS 81792268272 No Longer Active LONNIE Iglesias Active CETIRIZINE HCL 10 MG ORAL TABS 1 po qd PRN Allergies CETIRIZINE HCL 53987423184 Active Gab Padron MD Active CLARITIN 10 MG TAB 1 tablet by mouth daily as needed for allergies LORATADINE 80212556762 No Longer Active Gab Padron MD Active PREDNISONE 20 MG TAB take 3 tabs daily for 3 days, 2 tabs daily for 3 days, 1 tab daily for 3 days, 1/2 tab daily for 3 days PREDNISONE 19302782205 No Longer Active Tisha Lambert APRN Active PREDNISONE 20 MG TAB 2 tabs daily for 3 days, 1 tab daily for 3 days, 1/2 tab daily for 2 days PREDNISONE 95233370196 No Longer Active Gab Padron MD Active ZOFRAN ODT 4 MG TBDP 1 po q6hr PRN Nausea ONDANSETRON 57463559149 Active Gab Padron MD Active BACTRIM DS 800-160 MG TAB 1 tab by mouth twice daily TRIMETHOPRIM-SULFAMETHOXAZOLE 51838237406 No Longer Active Gab Padron MD Active LEVOTHYROXINE SODIUM 75 MCG TABS Take 1 tab daily LEVOTHYROXINE SODIUM 49433658157 No Longer Active Mariana FLEMING Active SYNTHROID 88 MCG ORAL TABS Take one by mouth daily LEVOTHYROXINE SODIUM 53920448041 Active Tisha Lambert APRN Active CHERATUSSIN AC 100-10 MG/5ML SYRP 1 tsp by mouth every 4 hours as needed for cough GUAIFENESIN-CODEINE 05336385478 No Longer Active Gab Padron MD Active POLYTRIM 96634-5.1 UNIT/ML-% SOLN 1 gtt to affected eye q3h x 7 days POLYMYXIN B-TRIMETHOPRIM 75543108301 No Longer Active Gab Padron MD Active FLUTICASONE PROPIONATE 50 MCG/ACT SUSP 1 to 2 sprays each nostril daily 04/21 FLUTICASONE PROPIONATE 04292126995 No Longer Active Gab Padron MD Active TRILEPTAL 600 MG TABS Take one 1 tablet in Am and 1 tablet at night OXCARBAZEPINE 62395890906 Active Gab Padron MD Active CEFDINIR 300 MG CAPS 1 po BID x 10 days CEFDINIR 08220458366 No Longer Active Rowenaina Tyrel GAUTAM Active CEFTIN 500 MG TAB 1 twice a day CEFUROXIME AXETIL 39190414833 No Longer Active Gab Padron MD Active AZITHROMYCIN 250 MG TABS 2 po qd x 1 day, then 1 po qd x 4 days AZITHROMYCIN 54517295297 No Longer Active Silvestrellnacho Sarah APRN Active OXYCODONE HCL 5 MG ORAL CAPS 1 TAB PO Q HS OXYCODONE HCL 16786296558 No Longer Active Jillina Frahossein GAUTAM Active NIASPAN 500 MG ORAL CR-TABS 1 pill nightly x 1 week, then 2 pills nightly x 1 week, then 3 pills nightly x 1 week, then 4 pills nightly NIACIN (ANTIHYPERLIPIDEMIC) 85431049781 No Longer Active Silvestrellina Tyrel GAUTAM Active NIACIN 500 MG TABS 1 pill by mouth nightly x 1 week, then 2 pills x 1 week, then 3 pills x 1 week, then 4 pills nightly - take after evening meal, with applesauce or an apple NIACIN 56327185554 No Longer Active Yolande Lindsay MD PhD Active FUROSEMIDE 20 MG TAB 1 tablet by mouth daily FUROSEMIDE 59344283696 Active Gab Padron MD Active FUROSEMIDE 20 MG TABS 1 pill by mouth daily, for edema FUROSEMIDE 00154724498 No Longer Active Yolande Lindsay MD PhD Active ATORVASTATIN CALCIUM 10 MG TABS 1 pill by mouth daily, for cholesterol 09/06 ATORVASTATIN CALCIUM 60846444248 Active Gab Padron MD Active CALCIUM 600+D PLUS MINERALS 600-400 MG-UNIT ORAL CHEW 1 tab by mouth daily CALCIUM CARBONATE-VIT D-MIN 80859067861 No Longer Active Yolande Lindsay MD PhD Active CYCLOBENZAPRINE HCL 10 MG TABS 1 tablet by mouth three times daily as needed for muscle spasm/pain CYCLOBENZAPRINE HCL 52303956638 Active Yolande Lindsay MD PhD Active ADULT ASPIRIN EC LOW STRENGTH 81 MG TBEC Take 1 tablet by mouth daily 2014 ASPIRIN 11979863348 No Longer Active Yolande Lindsay MD PhD Active ZOFRAN ODT 4 MG TBDP 1 pill dissolved by mouth every 4 hours if needed for nausea ONDANSETRON 48958098999 No Longer Active Yolande Lindsay MD PhD Active CEFTIN 500 MG TAB 1 twice a day CEFUROXIME AXETIL 42440339950 No Longer Active Yolande Lindsay MD PhD Active ALBUTEROL SULFATE 0.083 % NEBU SOLN one vial per nebulizer every 4-6 hours as needed ALBUTEROL SULFATE 73362890937 No Longer Active Alexis Ordaz MD Active DOXYCYCLINE HYCLATE 100 MG CAP 1 cap by mouth twice daily DOXYCYCLINE HYCLATE 61871015487 No Longer Active Yolande Lindsay MD PhD Active CYCLOBENZAPRINE HCL 10 MG TABS 1/2 - 1 tab by mouth three times daily if needed for spasms/pain CYCLOBENZAPRINE HCL 04190070485 No Longer Active Yolande Lindsay MD PhD Active AZITHROMYCIN 250 MG TABS 2 pills on day 1, then 1 pill daily x 4 days AZITHROMYCIN 46782012111 No Longer Active Yolande Lindsya MD PhD Active XOPENEX 1.25 MG/3ML NEBU 1 neb every 4 hours if needed for cough/congestion LEVALBUTEROL HCL 78829257786 No Longer Active Yolande Lindsay MD PhD Active DOXYCYCLINE HYCLATE 100 MG TAB 1 tab twice a day for 14 days 2013 DOXYCYCLINE HYCLATE 95432116118 No Longer Active Yolande Lindsay MD PhD Active PREVACID 30 MG CPDR Take 1 tablet by mouth daily-PRN LANSOPRAZOLE 52733091976 No Longer Active Yolande Lindsay MD PhD Active PA VITAMIN D-3 2000 UNIT CAPS 1 CAP PO DAILY CHOLECALCIFEROL 23965742792 No Longer Active Yolande Lindsay MD PhD Active CEFDINIR 300 MG CAPS by mouth twice a day CEFDINIR 93016716880 No Longer Active Gab Padron MD Active TOPAMAX 50 MG TABS 1 PO twice daily TOPIRAMATE 51814545310 Active Yolande Lindsay MD PhD Active AZITHROMYCIN 250 MG TABS 2 po qd x 1 day, then 1 po qd x 4 days AZITHROMYCIN 06837384927 No Longer Active Yolande Lindsay MD PhD Active DICLOFENAC SODIUM 75 MG TBEC 1 tablet by q 12 hours PRN headaches DICLOFENAC SODIUM 37055953367 No Longer Active Yolande Lindsay MD PhD Active FLONASE 50 MCG/ACT SUSP 1 spray each nostril am and hs FLUTICASONE PROPIONATE 78808501533 No Longer Active Todd Callaway MD Active ANUSOL-HC 25 MG SUPPOSITORY 1 rectally twice a day as needed for hemorrhoids HYDROCORTISONE JAYDEN (RECTAL) 02934018152 No Longer Active Yolande Lindsay MD PhD Active ANUSOL-HC 25 MG SUPPOSITORY 1 suppository rectally each evening as needed for anal fissure HYDROCORTISONE JAYDEN (RECTAL) 95988246983 No Longer Active LONNIE Iglesias Active VALIUM 5 MG TAB 1 po 30 minutes prior to your MRI DIAZEPAM 90948507047 No Longer Active Bozena Gutierrezeau LONNIE Active METHOCARBAMOL 750 MG TABS 1 PO QID PRN METHOCARBAMOL 82037263228 No Longer Active Daphneila Wetzel LEAD RECOVERER Active NITROSTAT 0.4 MG SUBL as directed NITROGLYCERIN 11364682904 No Longer Active Rodrigo Sarah LEAD RECOVERER Active ROBAXIN-750 750 MG TABS 2 four times a day for 3 days as needed for muscle spasm, then 1 four times a day as needed METHOCARBAMOL 29845882282 No Longer Active Rodrigo Sarah APRN Active HYDROCODONE-ACETAMINOPHEN 5-325 MG TABS 1 q 4-6 hrs prn HYDROCODONE-ACETAMINOPHEN 10474800512 No Longer Active Silvestrellnacho Sarah APRN Active VERAPAMIL HCL CR 180 MG CR-TABS TAKE 1 TAB DAILY VERAPAMIL HCL 75046759282 No Longer Active Yolande Lindsay MD PhD Active BACTRIM DS 800-160 MG TAB 1 tab by mouth twice daily TRIMETHOPRIM-SULFAMETHOXAZOLE 54002216007 No Longer Active Yolande Lindsay MD PhD Active NEXIUM 40 MG PACK 1 by mouth daily ESOMEPRAZOLE MAGNESIUM 24305717087 No Longer Active Des Hines MD Active EPIPEN 2-CHARLETTE 0.3 MG/0.3ML OMARI as need for allergic reaction EPINEPHRINE 43533707015 Active Yolande Lindsay MD PhD Active NEXIUM 40 MG CPDR 1 PO Q D DAY ESOMEPRAZOLE MAGNESIUM 16936672657 No Longer Active Sadia Perry RN Active NEXIUM 40 MG PACK 1 by mouth daily NEXIUM 40 MG PACK ESOMEPRAZOLE MAGNESIUM Inactive VERAPAMIL HCL CR 180 MG CR-TABS TAKE 1 TAB DAILY VERAPAMIL HCL CR 180 MG CR-TABS VERAPAMIL HCL Inactive HYDROCODONE-ACETAMINOPHEN 5-325 MG TABS 1 q 4-6 hrs prn HYDROCODONE-ACETAMINOPHEN 5-325 MG TABS 172450 HYDROCODONE-ACETAMINOPHEN Inactive ROBAXIN-750 750 MG TABS 2 four times a day for 3 days as needed for muscle spasm, then 1 four times a day as needed ROBAXIN-750 750 MG TABS 278330 METHOCARBAMOL Inactive NITROSTAT 0.4 MG SUBL as directed NITROSTAT 0.4 MG SUBL 928381 NITROGLYCERIN Inactive METHOCARBAMOL 750 MG TABS 1 PO QID PRN METHOCARBAMOL 750 MG TABS 591993 METHOCARBAMOL Inactive VALIUM 5 MG TAB 1 po 30 minutes prior to your MRI VALIUM 5 MG TAB 328085 DIAZEPAM Inactive ANUSOL-HC 25 MG SUPPOSITORY 1 suppository rectally each evening as needed for anal fissure ANUSOL-HC 25 MG SUPPOSITORY 0943865 HYDROCORTISONE JAYDEN (RECTAL) Inactive ANUSOL-HC 25 MG SUPPOSITORY 1 rectally twice a day as needed for hemorrhoids ANUSOL-HC 25 MG SUPPOSITORY 7838743 HYDROCORTISONE JAYDEN (RECTAL) Inactive FLONASE 50 MCG/ACT SUSP 1 spray each nostril am and hs FLONASE 50 MCG/ACT SUSP 3190504 FLUTICASONE PROPIONATE Inactive DICLOFENAC SODIUM 75 MG TBEC 1 tablet by q 12 hours PRN headaches DICLOFENAC SODIUM 75 MG TBEC 239629 DICLOFENAC SODIUM Inactive PA VITAMIN D-3 2000 UNIT CAPS 1 CAP PO DAILY PA VITAMIN D-3 2000 UNIT CAPS CHOLECALCIFEROL Inactive PREVACID 30 MG CPDR Take 1 tablet by mouth daily-PRN PREVACID 30 MG CPDR 823300 LANSOPRAZOLE Inactive DOXYCYCLINE HYCLATE 100 MG TAB 1 tab twice a day for 14 days 2013 DOXYCYCLINE HYCLATE 100 MG TAB 1001541 DOXYCYCLINE HYCLATE Inactive XOPENEX 1.25 MG/3ML NEBU 1 neb every 4 hours if needed for cough/congestion XOPENEX 1.25 MG/3ML [facility] 150385 LEVALBUTEROL HCL Inactive CYCLOBENZAPRINE HCL 10 MG TABS 1/2 - 1 tab by mouth three times daily if needed for spasms/pain CYCLOBENZAPRINE HCL 10 MG TABS 463865 CYCLOBENZAPRINE HCL Inactive ALBUTEROL SULFATE 0.083 % NEBU SOLN one vial per nebulizer every 4-6 hours as needed ALBUTEROL SULFATE 0.083 % NEBU SOLN 108859 ALBUTEROL SULFATE Inactive CEFTIN 500 MG TAB 1 twice a day CEFTIN 500 MG TAB 580326 CEFUROXIME AXETIL Inactive ZOFRAN ODT 4 MG TBDP 1 pill dissolved by mouth every 4 hours if needed for nausea ZOFRAN ODT 4 MG TBDP 144568 ONDANSETRON Inactive ADULT ASPIRIN EC LOW STRENGTH 81 MG TBEC Take 1 tablet by mouth daily 2014 ADULT ASPIRIN EC LOW STRENGTH 81 MG TBEC 613220 ASPIRIN Inactive CALCIUM 600+D PLUS MINERALS 600-400 [...] or an apple NIACIN 500 MG TABS 910869 NIACIN Inactive NIASPAN 500 MG ORAL CR-TABS 1 pill nightly x 1 week, then 2 pills nightly x 1 week, then 3 pills nightly x 1 week, then 4 pills nightly NIASPAN 500 MG ORAL CR-TABS NIACIN (ANTIHYPERLIPIDEMIC) Inactive OXYCODONE HCL 5 MG ORAL CAPS 1 TAB PO Q HS OXYCODONE HCL 5 MG ORAL CAPS 4129570 OXYCODONE HCL Inactive FLUTICASONE PROPIONATE 50 MCG/ACT SUSP 1 to 2 sprays each nostril daily 04/21 FLUTICASONE PROPIONATE 50 MCG/ACT SUSP 0485869 FLUTICASONE PROPIONATE Inactive POLYTRIM 11438-6.1 UNIT/ML-% SOLN 1 gtt to affected eye q3h x 7 days POLYTRIM 57656-5.1 UNIT/ML-% SOLN 313001 POLYMYXIN B- TRIMETHOPRIM Inactive CHERATUSSIN AC 100-10 MG/5ML SYRP 1 tsp by mouth every 4 hours as needed for cough CHERATUSSIN AC 100-10 MG/5ML SYRP 480992 GUAIFENESIN-CODEINE Inactive LEVOTHYROXINE SODIUM 75 MCG TABS Take 1 tab daily LEVOTHYROXINE SODIUM 75 MCG TABS 685921 LEVOTHYROXINE SODIUM Inactive CLARITIN 10 MG TAB 1 tablet by mouth daily as needed for allergies CLARITIN 10 MG TAB 206217 LORATADINE Inactive FISH OIL 1000 MG CAPS 3 pills daily FISH OIL 1000 MG CAPS OMEGA-3 FATTY ACIDS Inactive ONDANSETRON 4 MG TBDP 1 q4h PRN nausea ONDANSETRON 4 MG TBDP 605269 ONDANSETRON Inactive ADVAIR DISKUS 250-50 MCG/DOSE AEPB 1 puff BID ADVAIR DISKUS 250-50 MCG/DOSE AEPB FLUTICASONE-SALMETEROL Inactive TRAMADOL HCL 50 MG TABS 1 tab po every 6 hrs prn pain TRAMADOL HCL 50 MG TABS 243938 TRAMADOL HCL Inactive TRIAMCINOLONE ACETONIDE 0.1 % CREA apply bid sparingly to rash TRIAMCINOLONE ACETONIDE 0.1 % CREA 0490855 TRIAMCINOLONE ACETONIDE Inactive PREDNISONE 20 MG TAB 1 tab twice daily for 3 day, then one daily for three days PREDNISONE 20 MG TAB 707674 PREDNISONE Inactive IBUPROFEN 600 MG TAB 1 tablet by mouth every 6 hours for 7 days, then 1 tablet every 6 hours as needed. Take with food IBUPROFEN 600 MG TAB 852291 IBUPROFEN Inactive BACTRIM DS 800-160 MG TAB 1 tab by mouth twice daily BACTRIM DS 800-160 MG TAB 19820606 TRIMETHOPRIM-SULFAMETHOXAZOLE Inactive AZITHROMYCIN 250 MG TABS 2 po qd x 1 day, then 1 po qd x 4 days AZITHROMYCIN 250 MG TABS 445405 AZITHROMYCIN Inactive CEFDINIR 300 MG CAPS by mouth twice a day CEFDINIR 300 MG CAPS 737005 CEFDINIR Inactive AZITHROMYCIN 250 MG TABS 2 pills on day 1, then 1 pill daily x 4 days AZITHROMYCIN 250 MG TABS 816981 AZITHROMYCIN Inactive DOXYCYCLINE HYCLATE 100 MG CAP 1 cap by mouth twice daily DOXYCYCLINE HYCLATE 100 MG CAP 6866147 DOXYCYCLINE HYCLATE Inactive FUROSEMIDE 20 MG TABS 1 pill by mouth daily, for edema FUROSEMIDE 20 MG TABS 945954 FUROSEMIDE Inactive AZITHROMYCIN 250 MG TABS 2 po qd x 1 day, then 1 po qd x 4 days AZITHROMYCIN 250 MG TABS 873327 AZITHROMYCIN Inactive CEFTIN 500 MG TAB 1 twice a day CEFTIN 500 MG TAB 698973 CEFUROXIME AXETIL Inactive CEFDINIR 300 MG CAPS [...] for 2 days PREDNISONE 20 MG TAB 272460 PREDNISONE Inactive PREDNISONE 20 MG TAB take 3 tabs daily for 3 days, 2 tabs daily for 3 days, 1 tab daily for 3 days, 1/2 tab daily for 3 days PREDNISONE 20 MG TAB 795132 PREDNISONE Inactive BACTRIM DS 800-160 MG TAB 1 tab by mouth twice daily BACTRIM DS 800-160 MG TAB 918427 TRIMETHOPRIM-SULFAMETHOXAZOLE Inactive Immunizations Vaccine Administration Date Value Standard Description Seasonal influenza vaccine, injectable, containing preservative, for > 3 years old (Afluria, FluLaval, Fluzone, Fluvirin, Fluarix, Agriflu(>=18 yo)) Fluzone (>3 yrs.) [NNO011] Influenza, seasonal, injectable influenza immunization (Flu Vax) has been administered Influenza - Unspecified Formulation [CVX88] influenza virus vaccine, unspecified formulation pneumococcal immunization administered Pneumovax 23 [CVX33] pneumococcal polysaccharide vaccine, 23 valent Seasonal influenza vaccine, injectable, containing preservative, for > 3 years old (Afluria, FluLaval, Fluzone, Fluvirin, Fluarix, Agriflu(>=18 yo)) Fluzone (>3 yrs.) [GWQ817] Influenza, seasonal, injectable dT (Diphtheria and Tetanus) booster given given Td(adult) unspecified formulation Boostrix (Tetanus toxoid, reduced diphtheria toxoid and acellular pertussis vaccine, adsorbed), booster Boostrix [HFN802] tetanus toxoid, reduced diphtheria toxoid, and acellular pertussis vaccine, adsorbed Vital Signs Date Name Value Unit Range Description blood pressure, diastolic 85 mm[Hg] BP weldon [...] PANEL - Chemistry cholesterol, serum 166 mg/dL 787-539 9807/12/06 triglyceride, serum, fasting 86 mg/dL 30-200 HDL [...] negative Encounters Code Encounter Date Provider Facility CPT-70802 Level 3 Est. Patient 10:28:15 CDT Tisha Lambert [facility] CPT-80583 Level 3 Est. Patient 14:50:29 CDT [facility]77361 Level 3 Est. Patient 14:46:09 CDT Tisha Lambert [facility] CPT-56561 Level 4 New Patient 16:13:15 CDT [facility] CPT-13623 Level 4 Est. Patient 13:18:33 CDT [facility] CPT-99654 Level 3 Est. Patient 15:20:50 CDT Jared [facility] CPT-34412 Level 3 Est. Patient 17:43:55 SOLAR ENERGY INSTALLATION MANAGER [facility] CPT-43345 Level 3 Est. Patient 17:07:49 SOLAR ENERGY INSTALLATION MANAGER [facility] CPT-23153 Level 4 Est. Patient 19:55:18 SOLAR ENERGY INSTALLATION MANAGER Jared [facility] CPT-79522 Level 3 Est. Patient 20:13:34 SOLAR ENERGY INSTALLATION MANAGER Jared [facility] CPT-21117 Level 4 Est. Patient 16:31:27 CDT [facility] CPT-59438 Level 2 Est. Patient 12:23:38 CDT Jared [facility] CPT-59237 Level 3 Est. Patient 11:01:51 CDT [facility] CPT-54349 Level 3 Est. Patient 15:27:02 CDT Jared Og [facility] [place] CPT-29503 Level 4 Est. Patient 09:25:27 CDT [facility] CPT-32185 Level 3 Est. Patient 10:29:41 CDT Rodrigo Sarah [facility] CPT-16317 Level 4 Est. Patient 17:51:05 CDT [facility] CPT-39390 Level 3 Est. Patient 14:18:08 CDT [facility] CPT-93259 Level 4 Est. Patient 10:18:54 CDT [facility] CPT-04617 Level 3 Est. Patient 11:30:07 CDT Rodrigo Sarah [facility] CPT-86169 Level 4 Est. Patient 21:02:30 SOLAR ENERGY INSTALLATION MANAGER [facility] CPT-74815 Level 3 Est. Patient 11:02:19 SOLAR ENERGY INSTALLATION MANAGER Gab [facility] CPT-73177 Level 4 Est. Patient 22:24:31 SOLAR ENERGY INSTALLATION MANAGER Gab Padron MD [facility]-20281 Level 3 Est. Patient 18:33:46 SOLAR ENERGY INSTALLATION MANAGER Gab Padron MD [facility]-78815 Level 3 Est. Patient 16:19:11 CDT Yolande Lindsay MD [facility]-94095 Level 3 Est. Patient 18:59:14 CDT Yolande Lindsay MD [facility]-77037 Level 4 Est. Patient 21:29:26 CDT Yolande Lindsay MD [facility]-03954 Level 3 Est. Patient 07:37:45 CDT Yolande Lindsay MD [facility]-91166 Level 3 Est. Patient 17:03:46 CDT Yolande Lindsay MD [facility]-32991 Level 4 Est. Patient 20:02:13 SOLAR ENERGY INSTALLATION MANAGER Yolande Lindsay MD [facility]-68159 Level 3 Est. Patient 16:02:07 SOLAR ENERGY INSTALLATION MANAGER Alexis Ordaz MD [facility]-79249 Level 3 Est. Patient 12:41:24 SOLAR ENERGY INSTALLATION MANAGER Yolande Lindsay MD [facility]-15060 Level 3 Est. Patient 15:41:20 SOLAR ENERGY INSTALLATION MANAGER Yolande Lindsay MD [facility]-44582 Level 3 Est. Patient 13:20:02 SOLAR ENERGY INSTALLATION MANAGER Yolande Lindsay MD [facility]-35772 Level 3 Est. Patient 15:00:38 CDT Jared Og MD [facility]-80780 Level 3 Est. Patient 10:22:32 CDT Yolande Lindsay MD [facility]-02010 Level 3 Est. Patient 17:12:58 CDT Yolande Lindsay MD [facility]-72084 Level 4 Est. Patient 13:30:58 CDT Yolande Lindsay MD [facility] CPT-29468 Level 4 New Patient 09:02:42 CDT Jared Og MD [facility]-30752 Level 3 Est. Patient 08:19:07 CDT Yolande Lindsay MD [facility]-11188 Level 3 Est. Patient 12:00:13 SOLAR ENERGY INSTALLATION MANAGER Gab Padron MD [facility]-43085 Level 3 Est. Patient 16:15:23 SOLAR ENERGY INSTALLATION MANAGER Yolande Lindsay MD [facility]-77727 Level 2 Est. Patient 19:47:15 CDT Yolande Lindsay MD [facility]-41709 Level 3 Est. Patient 21:38:31 CDT Yolande Lindsay MD [facility]-03686 Level 3 Est. Patient 10:25:12 CDT Adiel PERAZA [facility] CPT-58584 Level 4 Est. Patient 10:51:58 CDT Yolande Lindsay MD [facility]-07331 Level 3 Est. Patient 14:04:55 SOLAR ENERGY INSTALLATION MANAGER Rodrigo Sarah [facility]-85321 Level 3 Est. Patient 10:46:35 SOLAR ENERGY INSTALLATION MANAGER Rodrigo Sarah [facility] [place]-84502 Level 3 Est. Patient 14:24:37 SOLAR ENERGY INSTALLATION MANAGER Yolande Lindsay MD [facility]-66566 Level 3 Est. Patient 17:41:58 SOLAR ENERGY INSTALLATION MANAGER Yolande Lindsay MD [facility]-01354 Level 2 Est. Patient 22:01:41 SOLAR ENERGY INSTALLATION MANAGER Rodrigo Sarah [facility] [place]-30985 Level 2 Est. Patient 22:01:11 SOLAR ENERGY INSTALLATION MANAGER Rodrigo Sarah [facility] CPT-49296 Level 3 Est. Patient 10:12:29 SOLAR ENERGY INSTALLATION MANAGER Rodrigo Sarah [facility] CPT-65795 Level 3 Est. Patient 11:05:44 CDT Alexis Ordaz MD [facility] CPT-40601 Level 3 Est. Patient 14:57:20 CDT Yolande Linsday MD [facility] CPT-00116 Level 3 Est. Patient 14:40:57 CDT Yolande Lindsay MD [facility] CPT-92854 Level 3 Est. Patient 20:55:40 CDT Yolande Lindsay MD [facility] CPT-17683 Level 3 Est. Patient 12:42:38 SOLAR ENERGY INSTALLATION MANAGER Yolande Lindsay MD [facility] CPT-82191 Level 3 Est. Patient 11:54:49 SOLAR ENERGY INSTALLATION MANAGER Des Hines MD [facility] CPT-70039 Level 3 Est. Patient 17:06:38 CDT Dewayne PERAZA [facility] Procedures Code Procedure Name Date Entry Date Standard Description CPT-J2930 Solu Medrol 125 mg (Methyl Prednisolone Sodium Succinate) 13:19:02 CDT CPT-11266 Abx/Therapy Injection 13:19:02 CDT CPT-J2930 Solu Medrol 125 mg (Methyl Prednisolone Sodium Succinate) 13:05:03 CDT CPT-18171 Hip, complete, 2-3 views - XRAY USE ONLY 17:19:04 SOLAR ENERGY INSTALLATION MANAGER CPT-60670 Venipuncture Draw Fee 08:37:59 SOLAR ENERGY INSTALLATION MANAGER CPT-90953 Liver Profile - LAB USE ONLY 08:37:59 SOLAR ENERGY INSTALLATION MANAGER CPT-62727 Lipid - LAB USE ONLY 08:37:58 SOLAR ENERGY INSTALLATION MANAGER CPT-16574 First Vx - Ix admin via ID IM or jet injects without counseling by physician 11:52:31 CDT CPT-52365 Fluzone Preservative Free Intramuscular Suspension 11:52 :31 CDT CPT-94364 Foot, left, comp min 3V - XRAY USE ONLY 09:24:54 CDT CPT-01574 Abd single AP View - XRAY USE ONLY 11:16:17 CDT CPT-18064 T spine AP/ Lat - XRAY USE ONLY 09:34:21 CDT CPT-72231 Chest 2V Frontal and Lat - XRAY USE ONLY 10:48:51 CDT CPT-59684 LS spine comp w obliq 13:28:00 [employer] INSTALLATION MANAGER CPT-J1040 Depo Medrol 80 mg (Methyl Prednisolone Acetate) 10:51: 28 SOLAR EN[employer]GY INSTALLATION MANAGER CPT-J1100 Decadron 8mg (Dexamethasone) 10:51:28 SOLAR EN[employer]GY INSTALLATION MANAGER CPT-70571 Abx/Therapy Injection 10:51:28 SOLAR ENERGY INSTALLATION MANAGER CPT-J1100 Decadron 8mg (Dexamethasone) 21:02:30 SOLAR ENERGY INSTALLATION MANAGER CPT-J1040 Depo Medrol 80 mg (Methyl Prednisolone Acetate) 21:02: 30 SOLAR EN[employer]GY INSTALLATION MANAGER [id number] Event Monitor - MC Transmission 09:12:32 CDT 08/06 [id number] Event Monitor - MC review and interp 09:12:32 CDT [id number] Event Monitor - MC recording 09:12:32 CDT CPT-01107 EKG Trac and Interp 16:50:22 CDT CPT-J1030 Depo Medrol 40 mg (Methyl Prednisolone Acetate) 17:05: 54 CDT CPT-J1100 Decadron 4mg (Dexamethasone) 17:05:54 CDT CPT-26697 Abx/Therapy Injection 17:05:54 CDT CPT-J1100 Decadron 4mg (Dexamethasone) 16:55:28 CDT CPT-J1030 Depo Medrol 40 mg (Methyl Prednisolone Acetate) 16:55: 28 CDT CPT-97532 Ankle Complete - Min 3V 15:58:50 CDT CPT-51878 Knee 3V 15:58:50 CDT CPT-07214 Hip comp min 2V 15:58:50 CDT CPT-J2270 Morphine Sulfate 10 mg 14:25:44 SOLAR EN[employer]GY INSTALLATION MANAGER CPT-J2550 Phenergan 12.5 mg (Promethazine) 14:25:44 SOLAR ENERGY INSTALLATION MANAGER CPT-48249 Abx/Therapy Injection 14:25:44 SOLAR ENERGY INSTALLATION MANAGER CPT-J2550 Phenergan 12.5 mg (Promethazine) 14:08:03 SOLAR ENERGY INSTALLATION MANAGER CPT-J2270 Morphine Sulfate 10 mg 14:08:03 SOLAR ENERGY INSTALLATION MANAGER CPT-28345 Bladder Scan 15:00:38 CDT CPT-TCMM Transitional Care Mgmt-Moderate 09:52:22 CDT CPT-J1030 Depo Medrol 40 mg (Methyl Prednisolone Acetate) 10:55: 18 CDT CPT-J1100 Decadron 4mg (Dexamethasone) 10:55:18 CDT CPT-90723 Abx/Therapy Injection 10:55:18 CDT CPT-J1030 Depo Medrol 40 mg (Methyl Prednisolone Acetate) 10:22: 32 CDT CPT-J1100 Decadron 4mg (Dexamethasone) 10:22:32 CDT CPT-18378 Postop F/U Visit 14:37:13 CDT CPT-76739 Ankle Complete - Min 3V 17:11:58 CDT CPT-15783 Foot comp min 3V 17:11:58 CDT CPT-91815 Bladder Scan 09:56:58 CDT CPT-40795 Postop F/U Visit 09:56:58 CDT CPT-39179 Cystoscopy 09:02:42 CDT CPT-26386 Bladder Scan 09:02:42 CDT CPT-96151 Abd single AP View 16:00:35 CDT CPT-90891 Administration single or combination vaccine inc oral 10 :15:43 CDT CPT-23292 Influenza split virus > age 3 10:15:43 CDT CPT-44668 Nail Avulsion 09:24:57 CDT CPT-OV Office Visit 11:15:41 CDT CPT-86096 Abx/Therapy Injection 10:51:30 CDT CPT-J3301 Kenalog 40 mg (Triamcinolone Acetonide) 10:25:12 CDT CPT-J1100 Decadron 4mg (Dexamethasone) 10:25:12 CDT CPT-37318 Anoscopy diagnostic 10:36:12 CDT CPT-OV Office Visit 15:34:31 CDT CPT-10408 Abx/Therapy Injection 08:21:15 SOLAR ENERGY INSTALLATION MANAGER CPT-J1885 Toradol 60 mg (Ketorolac) 10:46:35 SOLAR ENERGY INSTALLATION MANAGER CPT-OV Office Visit 19:51:16 SOLAR ENERGY INSTALLATION MANAGER CPT-84579 Spec Collection and Handling Fee 14:34:18 SOLAR ENERGY INSTALLATION MANAGER CPT-PV Prev. Care Visit 14:19:18 SOLAR ENERGY INSTALLATION MANAGER CPT-83770 Postop F/U Visit 14:47:51 SOLAR ENERGY INSTALLATION MANAGER CPT-84175 Postop F/U Visit 15:15:14 SOLAR ENERGY INSTALLATION MANAGER CPT-11125 Postop F/U Visit 14:41:43 CDT CPT-29480 Postop F/U Visit 15:47:46 CDT CPT-OV Office Visit 15:27:23 CDT CPT-OV Office Visit 17:20:34 CDT CPT-83528 Abx/Therapy Injection 15:05:57 CDT CPT-J1100 Decadron 8mg (Dexamethasone) 14:44:57 CDT CPT-J1040 Depo Medrol 80 mg (Methyl Prednisolone Acetate) 14:44: 57 CDT CPT-JTINJ Joint Injection 10:17:37 CDT CPT-97470 Administration 2+ single or combination vaccines inc oral 13:01:46 SOLAR ENERGY INSTALLATION MANAGER CPT-74212 Administration single or combination vaccine inc oral 13 :01:46 SOLAR ENERGY INSTALLATION MANAGER CPT-16824 Pneumovax 13:01:46 SOLAR ENERGY INSTALLATION MANAGER CPT-69826 Influenza split virus > age 3 13:01:46 SOLAR ENERGY INSTALLATION MANAGER CPT-84777 Administration single or combination vaccine inc oral 08 :56:49 CDT CPT-34878 Tdap 08:56:49 CDT
--- OUTSIDE RECORDS SUMMARY | 2017-03-21 20:31 | XMS REPORT ---
Author Author [facility] Medical Staff Organization [facility] [employer] [facility] Address [address] [place] [place] [id number] Phone [phone] Care Team Providers Care Production Sampler Name Role Phone LENKA HUTSON, EUNICE PP [phone] Summary purpose TRANSITION OF CARE AUTO GENERATION Chief Complaint and Reason for Visit Admit Diagnosis 1 LULI HTN CKD I-IV/NOS Problem list No authorized problems tracked for [...] tests and/or laboratory data RESULTS Radiology Results [id number] CT ABD/PELV WO CON PACs Image DATE OF EXAM: Sep 11 2014 [id number] ABD/PELV WO CONTRAST : RADIOLOGY REPORT DATE OF SERVICE: 09/11/14 HISTORY: Patient has benign essential hypertension, chronic kidney disease, and evaluation of lesion in the upper right kidney seen on previous studies including exam 03/01/2014. CT ABDOMEN AND PELVIS WITHOUT [id number] HOURS Images were obtained from diaphragms to symphysis pubis. No intravenous contrast was utilized due to decreased renal function. Dilute oral barium was given to opacify bowel. Liver and spleen are unremarkable. Gallbladder has been removed. There is no biliary ductal dilatation. The stomach shows mild hiatal hernia, but is otherwise normal. Pancreas and adrenal glands appear normal. The left kidney again shows small exophytic lesion in the posterior upper aspect measuring identical size with identical configuration to comparison study 03/01/2014. There is a cyst at the lower aspect of the left kidney which is chronic. No hydronephrosis of the left kidney is seen. The right kidney shows a small cyst laterally in the lower aspect. There is mild eccentric bulge of the anterior medial aspect of the right kidney in upper aspect. The size and configuration are identical to previous study 03/01/2014. No other abnormality of right kidney is seen. Bowel is normal. Appendix has been removed. There is no pelvic mass. There has been hysterectomy. No adenopathy is seen in the abdomen or pelvis. IMPRESSION: Stable appearance of the abdomen from 03/01/2014 with identical renal structures. Mild hiatal hernia. DO ARIS Cruz/liam 09/11/2014 13:56:00 / 09/11/2014 14:11:58 cc:Dr. Festus Callahan This document has been electronically Signed by: On: DATE OF EXAM: Sep 11 2014 [id number] ABD/PELV WO CONTRAST : RADIOLOGY REPORT DATE OF SERVICE: 09/11/14 HISTORY: Patient has benign essential hypertension, chronic kidney disease, and evaluation of lesion in the upper right kidney seen on previous studies including exam 03/01/2014. CT ABDOMEN AND PELVIS WITHOUT [id number] HOURS Images were obtained from diaphragms to symphysis pubis. No intravenous contrast was utilized due to decreased renal function. Dilute oral barium was given to opacify bowel. Liver and spleen are unremarkable. Gallbladder has been removed. There is no biliary ductal dilatation. The stomach shows mild hiatal hernia, but is otherwise normal. Pancreas and adrenal glands appear normal. The left kidney again shows small exophytic lesion in the posterior upper aspect measuring identical size with identical configuration to comparison study 03/01/2014. There is a cyst at the lower aspect of the left kidney which is chronic. No hydronephrosis of the left kidney is seen. The right kidney shows a small cyst laterally in the lower aspect. There is mild eccentric bulge of the anterior medial aspect of the right kidney in upper aspect. The size and configuration are identical to previous study 03/01/2014. No other abnormality of right kidney is seen. Bowel is normal. Appendix has been removed. There is no pelvic mass. There has been hysterectomy. No adenopathy is seen in the abdomen or pelvis. IMPRESSION: Stable appearance of the abdomen from 03/01/2014 with identical renal structures. Mild hiatal hernia. Chris Lafleur DO /liam 09/11/2014 13:56:00 / 09/11/2014 14:11:58 cc:Dr. Festus Callahan This document has been electronically Signed by: CHRIS LAFLEUR DO On: Sep 11 20143:40P Result Amended on 2014-09-11 at 15:40:05. Previous status was MD. History of procedures Procedure Code Code Type Description Date Performed Performing Physician [id number] CPT-4 CT ABD & PELVIS W/O CONTRAST 09-11-2014 FESTUS CALLAHAN Functional status No functional or cognitive status [...]
--- OUTSIDE RECORDS SUMMARY | 2017-03-21 20:33 | XMS REPORT | Clinical Summary ---
Author Author Admin, E Organization [facility] Address Unknown Phone Unavailable Allergies, Adverse Reactions, Alerts Allergy Name Reaction Description Start Date Severity Status Provider VALENTIN Critical Active Rodrigo Fracharlottel [employer] CHLORHEXIDINE GLUCONATE tongue and gums swollen Critical Active Hoadante Otto RMA NORFLEX Rash Critical Active Silvestrellina Frazell [employer] TRAZODONE HCL sees things Critical Active Dewayne [...] MD Other urinary incontinence Rectocele 618.04 Active aJred Og MD Rectocele Hematuria 599.70 Resolved Yolande [...] daily for 2 days end 02/05/17 PREDNISONE 15329591888 Active Gab Padron MD Active ZANTAC 150 MG TAB 1 by mouth twice daily RANITIDINE HCL 97173549249 Active Gab Padron MD Active TRIAMCINOLONE ACETONIDE 0.1 % CREA Apply to affected area 3 times daily for up to 2 weeks TRIAMCINOLONE ACETONIDE 60451674489 Active Tisha Lambert [employer] Active LISINOPRIL 40 MG TABS 1 tablet by mouth daily LISINOPRIL 64654186867 Active Tisha Lambert APRN Active IBUPROFEN 600 MG TAB 1 tablet by mouth every 6 hours for 7 days, then 1 tablet every 6 hours as needed. Take with food IBUPROFEN 66111048703 No Longer Active Tisha Lambert APRN Active PREDNISONE 20 MG TAB 1 tab twice daily for 3 day, then one daily for three days PREDNISONE 45308633598 No Longer Active Tisha Fausto GAUTAM Active TRIAMCINOLONE ACETONIDE 0.1 % CREA apply bid sparingly to rash TRIAMCINOLONE ACETONIDE 48383966485 No Longer Active Gab Padron MD Active TRAMADOL HCL 50 MG TABS 1 tab po every 6 hrs prn pain TRAMADOL HCL 87148402288 No Longer Active Gab Padron MD Active BACTRIM DS 800-160 MG TAB 1 tab by mouth twice daily TRIMETHOPRIM-SULFAMETHOXAZOLE 40214535007 No Longer Active Tisha Lambert APRN Active ADVAIR DISKUS 250-50 MCG/DOSE AEPB 1 puff BID FLUTICASONE-SALMETEROL 32022126804 No Longer Active Todd Callaway MD Active ONDANSETRON 4 MG TBDP 1 q4h PRN nausea ONDANSETRON 80073483579 No Longer Active LONNIE Iglesias Active FISH OIL 1000 MG CAPS 3 pills daily OMEGA-3 FATTY ACIDS 52177488594 No Longer Active LONNIE Iglesias Active CETIRIZINE HCL 10 MG ORAL TABS 1 po qd PRN Allergies CETIRIZINE HCL 50302921949 Active Gab Padron MD Active CLARITIN 10 MG TAB 1 tablet by mouth daily as needed for allergies LORATADINE 28349033608 No Longer Active Gab Padron MD Active PREDNISONE 20 MG TAB take 3 tabs daily for 3 days, 2 tabs daily for 3 days, 1 tab daily for 3 days, 1/2 tab daily for 3 days PREDNISONE 11409023991 No Longer Active Tisha Lambert APRN Active PREDNISONE 20 MG TAB 2 tabs daily for 3 days, 1 tab daily for 3 days, 1/2 tab daily for 2 days PREDNISONE 76216711251 No Longer Active Gab Padron MD Active ZOFRAN ODT 4 MG TBDP 1 po q6hr PRN Nausea ONDANSETRON 30994733143 Active Gab Padron MD Active BACTRIM DS 800-160 MG TAB 1 tab by mouth twice daily TRIMETHOPRIM-SULFAMETHOXAZOLE 67130918155 No Longer Active Gab Padron MD Active LEVOTHYROXINE SODIUM 75 MCG TABS Take 1 tab daily LEVOTHYROXINE SODIUM 07872315812 No Longer Active Mariana FLEMING Active SYNTHROID 88 MCG ORAL TABS Take one by mouth daily LEVOTHYROXINE SODIUM 39156660224 Active Tisha Lambert APRN Active CHERATUSSIN AC 100-10 MG/5ML SYRP 1 tsp by mouth every 4 hours as needed for cough GUAIFENESIN-CODEINE 42647413692 No Longer Active Gab Padron MD Active POLYTRIM 74650-9.1 UNIT/ML-% SOLN 1 gtt to affected eye q3h x 7 days POLYMYXIN B-TRIMETHOPRIM 58953891735 No Longer Active Gab Padron MD Active FLUTICASONE PROPIONATE 50 MCG/ACT SUSP 1 to 2 sprays each nostril daily 04/21 FLUTICASONE PROPIONATE 54048710940 No Longer Active Gab Padron MD Active TRILEPTAL 600 MG TABS Take one 1 tablet in Am and 1 tablet at night OXCARBAZEPINE 80640793336 Active Gab Padron MD Active CEFDINIR 300 MG CAPS 1 po BID x 10 days CEFDINIR 38485068360 No Longer Active Rodrigo Sarah APRN Active CEFTIN 500 MG TAB 1 twice a day CEFUROXIME AXETIL 58295703145 No Longer Active Gab Padron MD Active AZITHROMYCIN 250 MG TABS 2 po qd x 1 day, then 1 po qd x 4 days AZITHROMYCIN 59685608807 No Longer Active Rodrigo Sarah APRN Active OXYCODONE HCL 5 MG ORAL CAPS 1 TAB PO Q HS OXYCODONE HCL 95528354550 No Longer Active Rodrigo Sarah APRN Active NIASPAN 500 MG ORAL CR-TABS 1 pill nightly x 1 week, then 2 pills nightly x 1 week, then 3 pills nightly x 1 week, then 4 pills nightly NIACIN (ANTIHYPERLIPIDEMIC) 04656133156 No Longer Active Rodrigo Sarah APRN Active NIACIN 500 MG TABS 1 pill by mouth nightly x 1 week, then 2 pills x 1 week, then 3 pills x 1 week, then 4 pills nightly - take after evening meal, with applesauce or an apple NIACIN 07762619976 No Longer Active Yolande Lindsay MD PhD Active FUROSEMIDE 20 MG TAB 1 tablet by mouth daily FUROSEMIDE 99160577796 Active Gab Padron MD Active FUROSEMIDE 20 MG TABS 1 pill by mouth daily, for edema FUROSEMIDE 41238550387 No Longer Active Yolande Lindsay MD PhD Active ATORVASTATIN CALCIUM 10 MG TABS 1 pill by mouth daily, for cholesterol 09/06 ATORVASTATIN CALCIUM 18440294223 Active Gab Padron MD Active CALCIUM 600+D PLUS MINERALS 600-400 MG-UNIT ORAL CHEW 1 tab by mouth daily CALCIUM CARBONATE-VIT D-MIN 97853670629 No Longer Active Yolande Lindsay MD PhD Active CYCLOBENZAPRINE HCL 10 MG TABS 1 tablet by mouth three times daily as needed for muscle spasm/pain CYCLOBENZAPRINE HCL 38864495519 Active Yolande Lindsay MD PhD Active ADULT ASPIRIN EC LOW STRENGTH 81 MG TBEC Take 1 tablet by mouth daily 2014 ASPIRIN 49547257482 No Longer Active Yolande Lindsay MD PhD Active ZOFRAN ODT 4 MG TBDP 1 pill dissolved by mouth every 4 hours if needed for nausea ONDANSETRON 63738071784 No Longer Active Yolande Lindsay MD PhD Active CEFTIN 500 MG TAB 1 twice a day CEFUROXIME AXETIL 42137300794 No Longer Active Yolande Lindsay MD PhD Active ALBUTEROL SULFATE 0.083 % NEBU SOLN one vial per nebulizer every 4-6 hours as needed ALBUTEROL SULFATE 87245841262 No Longer Active Alexis Ordaz MD Active DOXYCYCLINE HYCLATE 100 MG CAP 1 cap by mouth twice daily DOXYCYCLINE HYCLATE 63820159693 No Longer Active Yolande Lindsay MD PhD Active CYCLOBENZAPRINE HCL 10 MG TABS 1/2 - 1 tab by mouth three times daily if needed for spasms/pain CYCLOBENZAPRINE HCL 81338128520 No Longer Active Yolande Lindsay MD PhD Active AZITHROMYCIN 250 MG TABS 2 pills on day 1, then 1 pill daily x 4 days AZITHROMYCIN 84259815807 No Longer Active Yolande Lindsay MD PhD Active XOPENEX 1.25 MG/3ML NEBU 1 neb every 4 hours if needed for cough/congestion LEVALBUTEROL HCL 46149343495 No Longer Active Yolande Lindsay MD PhD Active DOXYCYCLINE HYCLATE 100 MG TAB 1 tab twice a day for 14 days 2013 DOXYCYCLINE HYCLATE 52311089568 No Longer Active Yolande Lindsay MD PhD Active PREVACID 30 MG CPDR Take 1 tablet by mouth daily-PRN LANSOPRAZOLE 50855037591 No Longer Active Yolande Lindsay MD PhD Active PA VITAMIN D-3 2000 UNIT CAPS 1 CAP PO DAILY CHOLECALCIFEROL 80632269322 No Longer Active Yolande Lindsay MD PhD Active CEFDINIR 300 MG CAPS by mouth twice a day CEFDINIR 29167318016 No Longer Active Gab Padron MD Active TOPAMAX 50 MG TABS 1 PO twice daily TOPIRAMATE 06339586746 Active Yolande Lindsay MD PhD Active AZITHROMYCIN 250 MG TABS 2 po qd x 1 day, then 1 po qd x 4 days AZITHROMYCIN 51646716547 No Longer Active Yolande Lindsay MD PhD Active DICLOFENAC SODIUM 75 MG TBEC 1 tablet by q 12 hours PRN headaches DICLOFENAC SODIUM 72050292289 No Longer Active Yolnade Lindsay MD PhD Active FLONASE 50 MCG/ACT SUSP 1 spray each nostril am and hs FLUTICASONE PROPIONATE 62960722533 No Longer Active Todd Callaway MD Active ANUSOL-HC 25 MG SUPPOSITORY 1 rectally twice a day as needed for hemorrhoids HYDROCORTISONE JAYDEN (RECTAL) 86948454583 No Longer Active Yolande Lindsay MD PhD Active ANUSOL-HC 25 MG SUPPOSITORY 1 suppository rectally each evening as needed for anal fissure HYDROCORTISONE JAYDEN (RECTAL) 86041489291 No Longer Active LONNIE Iglesias Active VALIUM 5 MG TAB 1 po 30 minutes prior to your MRI DIAZEPAM 07422588273 No Longer Active LONNIE Iglesias Active METHOCARBAMOL 750 MG TABS 1 PO QID PRN METHOCARBAMOL 28635769604 No Longer Active Daphne Wetzel APRN Active NITROSTAT 0.4 MG SUBL as directed NITROGLYCERIN 16655175635 No Longer Active Rodrigo Sarah APRN Active ROBAXIN-750 750 MG TABS 2 four times a day for 3 days as needed for muscle spasm, then 1 four times a day as needed METHOCARBAMOL 58902354731 No Longer Active Rodrigo Sarah APRN Active HYDROCODONE-ACETAMINOPHEN 5-325 MG TABS 1 q 4-6 hrs prn HYDROCODONE-ACETAMINOPHEN 63442888741 No Longer Active Silvestrellnacho Sarah APRN Active VERAPAMIL HCL CR 180 MG CR-TABS TAKE 1 TAB DAILY VERAPAMIL HCL 84960062310 No Longer Active Yolande Lindsay MD PhD Active BACTRIM DS 800-160 MG TAB 1 tab by mouth twice daily TRIMETHOPRIM-SULFAMETHOXAZOLE 45661783332 No Longer Active Yolande Lindsay MD PhD Active NEXIUM 40 MG PACK 1 by mouth daily ESOMEPRAZOLE MAGNESIUM 70339405672 No Longer Active Des Hines MD Active EPIPEN 2-CHARLETTE 0.3 MG/0.3ML OMARI as need for allergic reaction EPINEPHRINE 09329664077 Active Yolande Lindsay MD PhD Active NEXIUM 40 MG CPDR 1 PO Q D DAY ESOMEPRAZOLE MAGNESIUM 82559237588 No Longer Active Sadia Perry RN Active NEXIUM 40 MG PACK 1 by mouth daily NEXIUM 40 MG PACK ESOMEPRAZOLE MAGNESIUM Inactive VERAPAMIL HCL CR 180 MG CR-TABS TAKE 1 TAB DAILY VERAPAMIL HCL CR 180 MG CR-TABS VERAPAMIL HCL Inactive HYDROCODONE-ACETAMINOPHEN 5-325 MG TABS 1 q 4-6 hrs prn HYDROCODONE-ACETAMINOPHEN 5-325 MG TABS 021817 HYDROCODONE-ACETAMINOPHEN Inactive ROBAXIN-750 750 MG TABS 2 four times a day for 3 days as needed for muscle spasm, then 1 four times a day as needed ROBAXIN-750 750 MG TABS 526463 METHOCARBAMOL Inactive NITROSTAT 0.4 MG SUBL as directed NITROSTAT 0.4 MG SUBL 582599 NITROGLYCERIN Inactive METHOCARBAMOL 750 MG TABS 1 PO QID PRN METHOCARBAMOL 750 MG TABS 763665 METHOCARBAMOL Inactive VALIUM 5 MG TAB 1 po 30 minutes prior to your MRI VALIUM 5 MG TAB 864905 DIAZEPAM Inactive ANUSOL-HC 25 MG SUPPOSITORY 1 suppository rectally each evening as needed for anal fissure ANUSOL-HC 25 MG SUPPOSITORY 7917986 HYDROCORTISONE JAYDEN (RECTAL) Inactive ANUSOL-HC 25 MG SUPPOSITORY 1 rectally twice a day as needed for hemorrhoids ANUSOL-HC 25 MG SUPPOSITORY 6760575 HYDROCORTISONE JAYDEN (RECTAL) Inactive FLONASE 50 MCG/ACT SUSP 1 spray each nostril am and hs FLONASE 50 MCG/ACT SUSP 6926641 FLUTICASONE PROPIONATE Inactive DICLOFENAC SODIUM 75 MG TBEC 1 tablet by q 12 hours PRN headaches DICLOFENAC SODIUM 75 MG TBEC 868258 DICLOFENAC SODIUM Inactive PA VITAMIN D-3 2000 UNIT CAPS 1 CAP PO DAILY PA VITAMIN D-3 2000 UNIT CAPS CHOLECALCIFEROL Inactive PREVACID 30 MG CPDR Take 1 tablet by mouth daily-PRN PREVACID 30 MG CPDR 345259 LANSOPRAZOLE Inactive DOXYCYCLINE HYCLATE 100 MG TAB 1 tab twice a day for 14 days 2013 DOXYCYCLINE HYCLATE 100 MG TAB 2974441 DOXYCYCLINE HYCLATE Inactive XOPENEX 1.25 MG/3ML NEBU 1 neb every 4 hours if needed for cough/congestion XOPENEX 1.25 MG/3ML NEBU 266761 LEVALBUTEROL HCL Inactive CYCLOBENZAPRINE HCL 10 MG TABS 1/2 - 1 tab by mouth three times daily if needed for spasms/pain CYCLOBENZAPRINE HCL 10 MG TABS 989276 CYCLOBENZAPRINE HCL Inactive ALBUTEROL SULFATE 0.083 % NEBU SOLN one vial per nebulizer every 4-6 hours as needed ALBUTEROL SULFATE 0.083 % NEBU SOLN 988051 ALBUTEROL SULFATE Inactive CEFTIN 500 MG TAB 1 twice a day CEFTIN 500 MG TAB 403445 CEFUROXIME AXETIL Inactive ZOFRAN ODT 4 MG TBDP 1 pill dissolved by mouth every 4 hours if needed for nausea ZOFRAN ODT 4 MG TBDP 499745 ONDANSETRON Inactive ADULT ASPIRIN EC LOW STRENGTH 81 MG TBEC Take 1 tablet by mouth daily 2014 ADULT ASPIRIN EC LOW STRENGTH 81 MG TBEC 686956 ASPIRIN Inactive CALCIUM 600+D PLUS MINERALS 600-400 [...] or an apple NIACIN 500 MG TABS 805075 NIACIN Inactive NIASPAN 500 MG ORAL CR-TABS 1 pill nightly x 1 week, then 2 pills nightly x 1 week, then 3 pills nightly x 1 week, then 4 pills nightly NIASPAN 500 MG ORAL CR-TABS NIACIN (ANTIHYPERLIPIDEMIC) Inactive OXYCODONE HCL 5 MG ORAL CAPS 1 TAB PO Q HS OXYCODONE HCL 5 MG ORAL CAPS 8198752 OXYCODONE HCL Inactive FLUTICASONE PROPIONATE 50 MCG/ACT SUSP 1 to 2 sprays each nostril daily 04/21 FLUTICASONE PROPIONATE 50 MCG/ACT SUSP 2443779 FLUTICASONE PROPIONATE Inactive POLYTRIM 47874-4.1 UNIT/ML-% SOLN 1 gtt to affected eye q3h x 7 days POLYTRIM 84285-1.1 UNIT/ML-% SOLN 791935 POLYMYXIN B- TRIMETHOPRIM Inactive CHERATUSSIN AC 100-10 MG/5ML SYRP 1 tsp by mouth every 4 hours as needed for cough CHERATUSSIN AC 100-10 MG/5ML SYRP 369272 GUAIFENESIN-CODEINE Inactive LEVOTHYROXINE SODIUM 75 MCG TABS Take 1 tab daily LEVOTHYROXINE SODIUM 75 MCG TABS 396672 LEVOTHYROXINE SODIUM Inactive CLARITIN 10 MG TAB 1 tablet by mouth daily as needed for allergies CLARITIN 10 MG TAB 344097 LORATADINE Inactive FISH OIL 1000 MG CAPS 3 pills daily FISH OIL 1000 MG CAPS OMEGA-3 FATTY ACIDS Inactive ONDANSETRON 4 MG TBDP 1 q4h PRN nausea ONDANSETRON 4 MG TBDP 706669 ONDANSETRON Inactive ADVAIR DISKUS 250-50 MCG/DOSE AEPB 1 puff BID ADVAIR DISKUS 250-50 MCG/DOSE AEPB FLUTICASONE-SALMETEROL Inactive TRAMADOL HCL 50 MG TABS 1 tab po every 6 hrs prn pain TRAMADOL HCL 50 MG TABS 909785 TRAMADOL HCL Inactive TRIAMCINOLONE ACETONIDE 0.1 % CREA apply bid sparingly to rash TRIAMCINOLONE ACETONIDE 0.1 % CREA 1143712 TRIAMCINOLONE ACETONIDE Inactive PREDNISONE 20 MG TAB 1 tab twice daily for 3 day, then one daily for three days PREDNISONE 20 MG TAB 871966 PREDNISONE Inactive IBUPROFEN 600 MG TAB 1 tablet by mouth every 6 hours for 7 days, then 1 tablet every 6 hours as needed. Take with food IBUPROFEN 600 MG TAB 261687 IBUPROFEN Inactive BACTRIM DS 800-160 MG TAB 1 tab by mouth twice daily BACTRIM DS 800-160 MG TAB 19820606 TRIMETHOPRIM-SULFAMETHOXAZOLE Inactive AZITHROMYCIN 250 MG TABS 2 po qd x 1 day, then 1 po qd x 4 days AZITHROMYCIN 250 MG TABS 847582 AZITHROMYCIN Inactive CEFDINIR 300 MG CAPS by mouth twice a day CEFDINIR 300 MG CAPS 20020708 CEFDINIR Inactive AZITHROMYCIN 250 MG TABS 2 pills on day 1, then 1 pill daily x 4 days AZITHROMYCIN 250 MG TABS 777192 AZITHROMYCIN Inactive DOXYCYCLINE HYCLATE 100 MG CAP 1 cap by mouth twice daily DOXYCYCLINE HYCLATE 100 MG CAP 9586248 DOXYCYCLINE HYCLATE Inactive FUROSEMIDE 20 MG TABS 1 pill by mouth daily, for edema FUROSEMIDE 20 MG TABS 525709 FUROSEMIDE Inactive AZITHROMYCIN 250 MG TABS 2 po qd x 1 day, then 1 po qd x 4 days AZITHROMYCIN 250 MG TABS 960054 AZITHROMYCIN Inactive CEFTIN 500 MG TAB 1 twice a day CEFTIN 500 MG TAB 611439 CEFUROXIME AXETIL Inactive CEFDINIR 300 MG CAPS [...] for 2 days PREDNISONE 20 MG TAB 008553 PREDNISONE Inactive PREDNISONE 20 MG TAB take 3 tabs daily for 3 days, 2 tabs daily for 3 days, 1 tab daily for 3 days, 1/2 tab daily for 3 days PREDNISONE 20 MG TAB 563867 PREDNISONE Inactive BACTRIM DS 800-160 MG TAB 1 tab by mouth twice daily BACTRIM DS 800-160 MG TAB 675449 TRIMETHOPRIM-SULFAMETHOXAZOLE Inactive Immunizations Vaccine Administration Date Value Standard Description Seasonal influenza vaccine, injectable, containing preservative, for > 3 years old (Afluria, FluLaval, Fluzone, Fluvirin, Fluarix, Agriflu(>=18 yo)) Fluzone (>3 yrs.) [KYR977] Influenza, seasonal, injectable influenza immunization (Flu Vax) has been administered Influenza - Unspecified Formulation [CVX88] influenza virus vaccine, unspecified formulation Seasonal influenza vaccine, injectable, containing preservative, for > 3 years old (Afluria, FluLaval, Fluzone, Fluvirin, Fluarix, Agriflu(>=18 yo)) Fluzone (>3 yrs.) [CIC211] Influenza, seasonal, injectable pneumococcal immunization administered Pneumovax 23 [CVX33] pneumococcal polysaccharide vaccine, 23 valent dT (Diphtheria and Tetanus) booster given given Td(adult) unspecified formulation Boostrix (Tetanus toxoid, reduced diphtheria toxoid and acellular pertussis vaccine, adsorbed), booster Boostrix [VQQ821] tetanus toxoid, reduced diphtheria toxoid, and acellular [...] PANEL - Chemistry cholesterol, serum 166 mg/dL 450-845 8071/12/06 triglyceride, serum, fasting 86 mg/dL 30-200 HDL [...] negative Encounters Code Encounter Date Provider Facility CPT-23812 Level 3 Est. Patient 17:32:14 CDT Gab Padron MD [facility] CPT-45702 Level 3 Est. Patient 10:28:15 CDT Tisha Lambert [facility] CPT-88743 Level 3 Est. Patient 14:50:29 CDT Gab Padron MD [facility] CPT-12952 Level 3 Est. Patient 14:46:09 CDT Tisha Lambert [facility] CPT-83649 Level 4 New Patient 16:13:15 CDT Todd Callaway MD [facility] CPT-04828 Level 4 Est. Patient 13:18:33 CDT Gab Padron MD [facility] CPT-81221 Level 3 Est. Patient 15:20:50 CDT Jared Og MD [facility] CPT-54015 Level 3 Est. Patient 17:43:55 [facility] Gab Pdaron MD [facility] CPT-66016 Level 3 Est. Patient 17:07:49 [facility] Jared Og MD [facility] CPT-24271 Level 4 Est. Patient 19:55:18 [facility] Jared Og MD [facility] CPT-13470 Level 3 Est. Patient 20:13:34 [facility] Jared Og MD [facility] CPT-74168 Level 4 Est. Patient 16:31:27 CDT Gab Padron MD [facility] CPT-17912 Level 2 Est. Patient 12:23:38 CDT Jared Og MD [facility] CPT-59096 Level 3 Est. Patient 11:01:51 CDT Gab Padron MD [facility] CPT-10428 Level 3 Est. Patient 15:27:02 CDT Jared Og MD [facility] [place] CPT-00986 Level 4 Est. Patient 09:25:27 CDT Gab Padron MD [facility] CPT-87738 Level 3 Est. Patient 10:29:41 CDT Rodrigo Sarah [facility]-50738 Level 4 Est. Patient 17:51:05 CDT Gab Padron MD [facility]-49231 Level 3 Est. Patient 14:18:08 CDT Gab Padron MD [facility]-88434 Level 4 Est. Patient 10:18:54 CDT Gab Padron MD [facility]-19182 Level 3 Est. Patient 11:30:07 CDT Rodrigo Sarah [facility]-47388 Level 4 Est. Patient 21:02:30 [facility] Gab Padron MD [facility]-36276 Level 3 Est. Patient 11:02:19 [facility] Gab Padron MD [facility]-50704 Level 4 Est. Patient 22:24:31 [facility] Gab Padron MD [facility]-63364 Level 3 Est. Patient 18:33:46 [facility] Gab Padron MD [facility]-20152 Level 3 Est. Patient 16:19:11 CDT Yolande Lindsay MD [facility]-89545 Level 3 Est. Patient 18:59:14 CDT Yolande Lindsay MD [facility]-09355 Level 4 Est. Patient 21:29:26 CDT Yolande Lindsay MD [facility]-07251 Level 3 Est. Patient 07:37:45 CDT Yolande Lindsay MD [facility]-29040 Level 3 Est. Patient 17:03:46 CDT Yolande Lindsay MD [facility]-74107 Level 4 Est. Patient 20:02:13 [facility] Yolande Lindsay MD [facility] CPT-69342 Level 3 Est. Patient 16:02:07 [facility] Alexis Ordaz MD [facility] CPT-99069 Level 3 Est. Patient 12:41:24 [facility] Yolande Lindsay MD [facility]-78976 Level 3 Est. Patient 15:41:20 [facility] Yolande Lindsay MD [facility]-04176 Level 3 Est. Patient 13:20:02 [facility] Yolande Lindsay MD [facility] CPT-58591 Level 3 Est. Patient 15:00:38 CDT Jared Og MD [facility]-08344 Level 3 Est. Patient 10:22:32 CDT Yolande Lindsay MD [facility]-82266 Level 3 Est. Patient 17:12:58 CDT Yolande Lindsay MD [facility] CPT-99153 Level 4 Est. Patient 13:30:58 CDT Yolande Lindsay MD [facility] CPT-01179 Level 4 New Patient 09:02:42 CDT Jared Og MD [facility]-99811 Level 3 Est. Patient 08:19:07 CDT Yolande Lindsay MD [facility] CPT-09916 Level 3 Est. Patient 12:00:13 [facility] Gab Padron MD [facility] CPT-42954 Level 3 Est. Patient 16:15:23 [facility] Yolande Lindsay MD [facility] CPT-30571 Level 2 Est. Patient 19:47:15 CDT Yolande Lindsay MD [facility]-71042 Level 3 Est. Patient 21:38:31 CDT Yolande Lindsay MD [facility]-84066 Level 3 Est. Patient 10:25:12 CDT Adiel PERAZA [facility] CPT-30810 Level 4 Est. Patient 10:51:58 CDT Yolande Lindsay MD [facility]-38958 Level 3 Est. Patient 14:04:55 [facility] Rodrigo Sarah [facility]-52700 Level 3 Est. Patient 10:46:35 [facility] Rodrigo Sarah [facility]-62113 Level 3 Est. Patient 14:24:37 [facility] Yolande Lindsay MD [facility]-36707 Level 3 Est. Patient 17:41:58 [facility] Yolande Lindsay MD [facility]-84891 Level 2 Est. Patient 22:01:41 [facility] Rodrigo Sarah [facility]-23582 Level 2 Est. Patient 22:01:11 [facility] Rodrigo Sarah [facility] CPT-19326 Level 3 Est. Patient 10:12:29 [facility] Rodrigo Sarah [facility]-05939 Level 3 Est. Patient 11:05:44 CDT Alexis Ordaz MD [facility]-98975 Level 3 Est. Patient 14:57:20 CDT Yolande Lindsay MD [facility]-47473 Level 3 Est. Patient 14:40:57 CDT Yolande Lindsay MD [facility]-00846 Level 3 Est. Patient 20:55:40 CDT Yolande Lindsay MD [facility]-88516 Level 3 Est. Patient 12:42:38 [facility] Yolande Lindsay MD [facility]-43766 Level 3 Est. Patient 11:54:49 [facility] Des Hines MD [facility] CPT-19595 Level 3 Est. Patient 17:06:38 CDT Dewayne PERAZA [facility] Procedures Code Procedure Name Date Entry Date Standard Description CPT-J2930 Solu Medrol 125 mg (Methyl Prednisolone Sodium Succinate) 13:19:02 CDT CPT-35168 Abx/Therapy Injection 13:19:02 CDT CPT-J2930 Solu Medrol 125 mg (Methyl Prednisolone Sodium Succinate) 13:05:03 CDT CPT-91442 Hip, complete, 2-3 views - XRAY USE ONLY 17:19:04 [facility] CPT-83417 Venipuncture Draw Fee 08:37:59 [facility] CPT-52712 Liver Profile - LAB USE ONLY 08:37:59 [facility] CPT-96103 Lipid - LAB USE ONLY 08:37:58 [facility] CPT-17053 First Vx - Ix admin via ID IM or jet injects without counseling by physician 11:52:31 CDT CPT-70993 Fluzone Preservative Free Intramuscular Suspension 11:52 :31 CDT CPT-45909 Foot, left, comp min 3V - XRAY USE ONLY 09:24:54 CDT CPT-54011 Abd single AP View - XRAY USE ONLY 11:16:17 CDT CPT-45553 T spine AP/ Lat - XRAY USE ONLY 09:34:21 CDT CPT-53184 Chest 2V Frontal and Lat - XRAY USE ONLY 10:48:51 CDT CPT-63327 LS spine comp w obliq 13:28:00 [facility] CPT-J1040 Depo Medrol 80 mg (Methyl Prednisolone Acetate) 10:51: 28 [facility] CPT-J1100 Decadron 8mg (Dexamethasone) 10:51:28 [facility] CPT-61699 Abx/Therapy Injection 10:51:28 [facility] CPT-J1100 Decadron 8mg (Dexamethasone) 21:02:30 [facility] CPT-J1040 Depo Medrol 80 mg (Methyl Prednisolone Acetate) 21:02: 30 [facility] [id number] Event Monitor - MC Transmission 09:12:32 CDT 08/06 [id number] Event Monitor - MC review and interp 09:12:32 CDT [id number] Event Monitor - MC recording 09:12:32 CDT CPT-70784 EKG Trac and Interp 16:50:22 CDT CPT-J1030 Depo Medrol 40 mg (Methyl Prednisolone Acetate) 17:05: 54 CDT CPT-J1100 Decadron 4mg (Dexamethasone) 17:05:54 CDT CPT-64398 Abx/Therapy Injection 17:05:54 CDT CPT-J1100 Decadron 4mg (Dexamethasone) 16:55:28 CDT CPT-J1030 Depo Medrol 40 mg (Methyl Prednisolone Acetate) 16:55: 28 CDT CPT-54043 Ankle Complete - Min 3V 15:58:50 CDT CPT-23834 Knee 3V 15:58:50 CDT CPT-16108 Hip comp min 2V 15:58:50 CDT CPT-J2270 Morphine Sulfate 10 mg 14:25:44 [facility] CPT-J2550 Phenergan 12.5 mg (Promethazine) 14:25:44 [facility] CPT-37362 Abx/Therapy Injection 14:25:44 [facility] CPT-J2550 Phenergan 12.5 mg (Promethazine) 14:08:03 [facility] CPT-J2270 Morphine Sulfate 10 mg 14:08:03 [facility] CPT-15259 Bladder Scan 15:00:38 CDT CPT-TCMM Transitional Care Mgmt-Moderate 09:52:22 CDT CPT-J1030 Depo Medrol 40 mg (Methyl Prednisolone Acetate) 10:55: 18 CDT CPT-J1100 Decadron 4mg (Dexamethasone) 10:55:18 CDT CPT-44935 Abx/Therapy Injection 10:55:18 CDT CPT-J1030 Depo Medrol 40 mg (Methyl Prednisolone Acetate) 10:22: 32 CDT CPT-J1100 Decadron 4mg (Dexamethasone) 10:22:32 CDT CPT-75014 Postop F/U Visit 14:37:13 CDT CPT-21601 Ankle Complete - Min 3V 17:11:58 CDT CPT-30049 Foot comp min 3V 17:11:58 CDT CPT-60451 Bladder Scan 09:56:58 CDT CPT-68947 Postop F/U Visit 09:56:58 CDT CPT-18016 Cystoscopy 09:02:42 CDT CPT-66030 Bladder Scan 09:02:42 CDT CPT-99089 Abd single AP View 16:00:35 CDT CPT-27781 Administration single or combination vaccine inc oral 10 :15:43 CDT CPT-66667 Influenza split virus > age 3 10:15:43 CDT CPT-18117 Nail Avulsion 09:24:57 CDT CPT-OV Office Visit 11:15:41 CDT CPT-31919 Abx/Therapy Injection 10:51:30 CDT CPT-J3301 Kenalog 40 mg (Triamcinolone Acetonide) 10:25:12 CDT CPT-J1100 Decadron 4mg (Dexamethasone) 10:25:12 CDT CPT-16046 Anoscopy diagnostic 10:36:12 CDT CPT-OV Office Visit 15:34:31 CDT CPT-83604 Abx/Therapy Injection 08:21:15 [facility] CPT-J1885 Toradol 60 mg (Ketorolac) 10:46:35 [facility] CPT-OV Office Visit 19:51:16 [facility] CPT-14906 Spec Collection and Handling Fee 14:34:18 [facility] CPT-PV Prev. Care Visit 14:19:18 [facility] CPT-80583 Postop F/U Visit 14:47:51 [facility] CPT-88299 Postop F/U Visit 15:15:14 [facility] CPT-10982 Postop F/U Visit 14:41:43 CDT CPT-19635 Postop F/U Visit 15:47:46 CDT CPT-OV Office Visit 15:27:23 CDT CPT-OV Office Visit 17:20:34 CDT CPT-08757 Abx/Therapy Injection 15:05:57 CDT CPT-J1100 Decadron 8mg (Dexamethasone) 14:44:57 CDT CPT-J1040 Depo Medrol 80 mg (Methyl Prednisolone Acetate) 14:44: 57 CDT CPT-JTINJ Joint Injection 10:17:37 CDT CPT-37504 Administration 2+ single or combination vaccines inc oral 13:01:46 [facility] CPT-73681 Administration single or combination vaccine inc oral 13 :01:46 [facility] CPT-41860 Pneumovax 13:01:46 [facility] CPT-91237 Influenza split virus > age 3 13:01:46 [facility] CPT-38734 Administration single or combination vaccine inc oral 08 :56:49 CDT CPT-73008 Tdap 08:56:49 CDT
--- OUTSIDE RECORDS SUMMARY | 2017-03-21 20:34 | XMS REPORT | Clinical Summary ---
Author Author Admin, E Organization [facility] Address Unknown Phone Unavailable Allergies, Adverse Reactions, Alerts Allergy Name Reaction Description Start Date Severity Status Provider VALENTIN Critical Active Rodrigo Fracharlottel [employer]NA[employer]TER CHLORHEXIDINE GLUCONATE tongue and gums swollen Critical Active Hoa Otto RMA NORFLEX Rash Critical Active Silvestrellina Frazell [employer] TRAZODONE HCL sees things Critical Active Dewayne [...] infected Renal insufficiency, mild 585.2 Resolved Gab aPdron MD Chronic kidney disease, Stage II (mild) [...] Gab Padron MD Benign paroxysmal positional vertigo FOOT PAIN, RIGHT ICD-729.5 Inactive Yolande Lindsay [...] Yolande Lindsay MD PhD FISSURE, ANAL ICD-565.0 Refugio Lindsay MD PhD CHEST PAIN, UNSPECIFIED ICD-786.50 [...] Provider Patient Instruction PREDNISONE 20 MG TAB 1 tab twice daily for 3 day, then one daily for three days PREDNISONE 56897157920 Active Gab Padron MD Active TRIAMCINOLONE ACETONIDE 0.1 % CREA apply bid sparingly to rash TRIAMCINOLONE ACETONIDE 58565318913 No Longer Active Gab Padron MD Active TRAMADOL HCL 50 MG TABS 1 tab po every 6 hrs prn pain TRAMADOL HCL 67704361832 No Longer Active Gab Padron MD Active BACTRIM DS 800-160 MG TAB 1 tab by mouth twice daily TRIMETHOPRIM-SULFAMETHOXAZOLE 40634051952 No Longer Active Tisha Lambert [employer]TER Active ADVAIR DISKUS 250-50 MCG/DOSE AEPB 1 puff BID FLUTICASONE-SALMETEROL 09196177946 No Longer Active Todd Callaway MD Active ONDANSETRON 4 MG TBDP 1 q4h PRN nausea ONDANSETRON 65084230762 No Longer Active LONNIE Iglesias Active FISH OIL 1000 MG CAPS 3 pills daily OMEGA-3 FATTY ACIDS 22876124745 No Longer Active LONNIE Iglesias Active CETIRIZINE HCL 10 MG ORAL TABS 1 po qd PRN Allergies CETIRIZINE HCL 89781280973 Active Gab Padron MD Active CLARITIN 10 MG TAB 1 tablet by mouth daily as needed for allergies LORATADINE 95922313811 No Longer Active Gab Padron MD Active PREDNISONE 20 MG TAB take 3 tabs daily for 3 days, 2 tabs daily for 3 days, 1 tab daily for 3 days, 1/2 tab daily for 3 days PREDNISONE 15288506909 No Longer Active Tisha Lambert APRN Active PREDNISONE 20 MG TAB 2 tabs daily for 3 days, 1 tab daily for 3 days, 1/2 tab daily for 2 days PREDNISONE 37456832960 No Longer Active Gab Padron MD Active ZOFRAN ODT 4 MG TBDP 1 po q6hr PRN Nausea ONDANSETRON 68019456846 Active Gab Padron MD Active IBUPROFEN 600 MG TAB 1 tablet by mouth every 6 hours for 7 days, then 1 tablet every 6 hours as needed. Take with food IBUPROFEN 18143549148 Active Rodrigo Sarah APRN Active BACTRIM DS 800-160 MG TAB 1 tab by mouth twice daily TRIMETHOPRIM-SULFAMETHOXAZOLE 96517767680 No Longer Active Gab Padorn MD Active LEVOTHYROXINE SODIUM 75 MCG TABS Take 1 tab daily LEVOTHYROXINE SODIUM 71133720600 No Longer Active Mariana HICKEYA Active SYNTHROID 88 MCG ORAL TABS Take one by mouth daily LEVOTHYROXINE SODIUM 47660155725 Active Gab Padron MD Active CHERATUSSIN AC 100-10 MG/5ML SYRP 1 tsp by mouth every 4 hours as needed for cough GUAIFENESIN-CODEINE 88937162697 No Longer Active Gab Padron MD Active POLYTRIM 98805-3.1 UNIT/ML-% SOLN 1 gtt to affected eye q3h x 7 days POLYMYXIN B-TRIMETHOPRIM 62055880223 No Longer Active Gab Padron MD Active FLUTICASONE PROPIONATE 50 MCG/ACT SUSP 1 to 2 sprays each nostril daily 04/21 FLUTICASONE PROPIONATE 41202163674 No Longer Active Gab Padron MD Active TRILEPTAL 600 MG TABS Take one 1 tablet in Am and 1 tablet at night OXCARBAZEPINE 97181255536 Active Gab Padron MD Active CEFDINIR 300 MG CAPS 1 po BID x 10 days CEFDINIR 67529375187 No Longer Active Rodrigo Sarah APRN Active CEFTIN 500 MG TAB 1 twice a day CEFUROXIME AXETIL 97518622123 No Longer Active Gab Padron MD Active AZITHROMYCIN 250 MG TABS 2 po qd x 1 day, then 1 po qd x 4 days AZITHROMYCIN 67089131020 No Longer Active Rodrigo Sarah APRN Active OXYCODONE HCL 5 MG ORAL CAPS 1 TAB PO Q HS OXYCODONE HCL 23785502613 No Longer Active Rodrigo Sarah APRN Active NIASPAN 500 MG ORAL CR-TABS 1 pill nightly x 1 week, then 2 pills nightly x 1 week, then 3 pills nightly x 1 week, then 4 pills nightly NIACIN (ANTIHYPERLIPIDEMIC) 16080900642 No Longer Active Rodrigo Sarah APRN Active NIACIN 500 MG TABS 1 pill by mouth nightly x 1 week, then 2 pills x 1 week, then 3 pills x 1 week, then 4 pills nightly - take after evening meal, with applesauce or an apple NIACIN 31709057538 No Longer Active Yolande Lindsay MD PhD Active FUROSEMIDE 20 MG TAB 1 tablet by mouth daily FUROSEMIDE 56477367700 Active Gab Padron MD Active LISINOPRIL 20 MG ORAL TABS 1 tab by mouth daily LISINOPRIL 00780158966 Active Gab Padron MD Active FUROSEMIDE 20 MG TABS 1 pill by mouth daily, for edema FUROSEMIDE 23523655597 No Longer Active Yolande Lindsay MD PhD Active ATORVASTATIN CALCIUM 10 MG TABS 1 pill by mouth daily, for cholesterol 09/06 ATORVASTATIN CALCIUM 89635846775 Active Gab Padron MD Active CALCIUM 600+D PLUS MINERALS 600-400 MG-UNIT ORAL CHEW 1 tab by mouth daily CALCIUM CARBONATE-VIT D-MIN 56452656852 No Longer Active Yolande Lindsay MD PhD Active CYCLOBENZAPRINE HCL 10 MG TABS 1 tablet by mouth three times daily as needed for muscle spasm/pain CYCLOBENZAPRINE HCL 84523634121 Active Yolande Lindsay MD PhD Active ADULT ASPIRIN EC LOW STRENGTH 81 MG TBEC Take 1 tablet by mouth daily 2014 ASPIRIN 57361829605 No Longer Active Yolande Lindsay MD PhD Active ZOFRAN ODT 4 MG TBDP 1 pill dissolved by mouth every 4 hours if needed for nausea ONDANSETRON 59150833080 No Longer Active Yolande Lindsay MD PhD Active CEFTIN 500 MG TAB 1 twice a day CEFUROXIME AXETIL 57942507497 No Longer Active Yolande Lindsay MD PhD Active ALBUTEROL SULFATE 0.083 % NEBU SOLN one vial per nebulizer every 4-6 hours as needed ALBUTEROL SULFATE 77278240197 No Longer Active Alexis Ordaz MD Active DOXYCYCLINE HYCLATE 100 MG CAP 1 cap by mouth twice daily DOXYCYCLINE HYCLATE 90167850914 No Longer Active Yolande Lindsay MD PhD Active CYCLOBENZAPRINE HCL 10 MG TABS 1/2 - 1 tab by mouth three times daily if needed for spasms/pain CYCLOBENZAPRINE HCL 82775262517 No Longer Active Yolande Lindsay MD PhD Active AZITHROMYCIN 250 MG TABS 2 pills on day 1, then 1 pill daily x 4 days AZITHROMYCIN 32956820957 No Longer Active Yolande Lindsay MD PhD Active XOPENEX 1.25 MG/3ML NEBU 1 neb every 4 hours if needed for cough/congestion LEVALBUTEROL HCL 87971465984 No Longer Active Yolande Lindsay MD PhD Active DOXYCYCLINE HYCLATE 100 MG TAB 1 tab twice a day for 14 days 2013 DOXYCYCLINE HYCLATE 89506706314 No Longer Active Yolande Lindsay MD PhD Active PREVACID 30 MG CPDR Take 1 tablet by mouth daily-PRN LANSOPRAZOLE 18706948098 No Longer Active Yolande Lindsay MD PhD Active PA VITAMIN D-3 2000 UNIT CAPS 1 CAP PO DAILY CHOLECALCIFEROL 98661991663 No Longer Active Yolande Lindsay MD PhD Active CEFDINIR 300 MG CAPS by mouth twice a day CEFDINIR 16160676487 No Longer Active Gab Padron MD Active TOPAMAX 50 MG TABS 1 PO twice daily TOPIRAMATE 29549988810 Active Yolande Lindsay MD PhD Active AZITHROMYCIN 250 MG TABS 2 po qd x 1 day, then 1 po qd x 4 days AZITHROMYCIN 42533751163 No Longer Active Yolande Lindsay MD PhD Active DICLOFENAC SODIUM 75 MG TBEC 1 tablet by q 12 hours PRN headaches DICLOFENAC SODIUM 50892177839 No Longer Active Yolande Lindsay MD PhD Active FLONASE 50 MCG/ACT SUSP 1 spray each nostril am and hs FLUTICASONE PROPIONATE 96828251496 No Longer Active Todd Callaway MD Active ANUSOL-HC 25 MG SUPPOSITORY 1 rectally twice a day as needed for hemorrhoids HYDROCORTISONE JAYDEN (RECTAL) 60143507963 No Longer Active Yolande Lindsay MD PhD Active ANUSOL-HC 25 MG SUPPOSITORY 1 suppository rectally each evening as needed for anal fissure HYDROCORTISONE JAYDEN (RECTAL) 05677442343 No Longer Active LONNIE Iglesias Active VALIUM 5 MG TAB 1 po 30 minutes prior to your MRI DIAZEPAM 16860634794 No Longer Active LONNIE Iglesias Active METHOCARBAMOL 750 MG TABS 1 PO QID PRN METHOCARBAMOL 07043886863 No Longer Active Daphne Wetzel APRN Active NITROSTAT 0.4 MG SUBL as directed NITROGLYCERIN 42327074860 No Longer Active Jillina Frazell [employer]TER Active ROBAXIN-750 750 MG TABS 2 four times a day for 3 days as needed for muscle spasm, then 1 four times a day as needed METHOCARBAMOL 51718179904 No Longer Active Silvestrellnacho Sarah APRN Active HYDROCODONE-ACETAMINOPHEN 5-325 MG TABS 1 q 4-6 hrs prn HYDROCODONE-ACETAMINOPHEN 53327226603 No Longer Active Silvestrellnacho Sarah APRN Active VERAPAMIL HCL CR 180 MG CR-TABS TAKE 1 TAB DAILY VERAPAMIL HCL 20163773311 No Longer Active Yolande Lindsay MD PhD Active BACTRIM DS 800-160 MG TAB 1 tab by mouth twice daily TRIMETHOPRIM-SULFAMETHOXAZOLE 03715725332 No Longer Active Yolande Lindsay MD PhD Active NEXIUM 40 MG PACK 1 by mouth daily ESOMEPRAZOLE MAGNESIUM 77309226543 No Longer Active Des Hines MD Active EPIPEN 2-CHARLETTE 0.3 MG/0.3ML OMARI as need for allergic reaction EPINEPHRINE 79873060507 Active Yolande Lindsay MD PhD Active NEXIUM 40 MG CPDR 1 PO Q D DAY ESOMEPRAZOLE MAGNESIUM 93096592197 No Longer Active Sadia Perry RN Active NEXIUM 40 MG PACK 1 by mouth daily NEXIUM 40 MG PACK ESOMEPRAZOLE MAGNESIUM Inactive VERAPAMIL HCL CR 180 MG CR-TABS TAKE 1 TAB DAILY VERAPAMIL HCL CR 180 MG CR-TABS VERAPAMIL HCL Inactive HYDROCODONE-ACETAMINOPHEN 5-325 MG TABS 1 q 4-6 hrs prn HYDROCODONE-ACETAMINOPHEN 5-325 MG TABS 581348 HYDROCODONE-ACETAMINOPHEN Inactive ROBAXIN-750 750 MG TABS 2 four times a day for 3 days as needed for muscle spasm, then 1 four times a day as needed ROBAXIN-750 750 MG TABS 903548 METHOCARBAMOL Inactive NITROSTAT 0.4 MG SUBL as directed NITROSTAT 0.4 MG SUBL 227054 NITROGLYCERIN Inactive METHOCARBAMOL 750 MG TABS 1 PO QID PRN METHOCARBAMOL 750 MG TABS 496909 METHOCARBAMOL Inactive VALIUM 5 MG TAB 1 po 30 minutes prior to your MRI VALIUM 5 MG TAB 564571 DIAZEPAM Inactive ANUSOL-HC 25 MG SUPPOSITORY 1 suppository rectally each evening as needed for anal fissure ANUSOL-HC 25 MG SUPPOSITORY 4511864 HYDROCORTISONE JAYDEN (RECTAL) Inactive ANUSOL-HC 25 MG SUPPOSITORY 1 rectally twice a day as needed for hemorrhoids ANUSOL-HC 25 MG SUPPOSITORY 0849695 HYDROCORTISONE JAYDEN (RECTAL) Inactive FLONASE 50 MCG/ACT SUSP 1 spray each nostril am and hs FLONASE 50 MCG/ACT SUSP 1519991 FLUTICASONE PROPIONATE Inactive DICLOFENAC SODIUM 75 MG TBEC 1 tablet by q 12 hours PRN headaches DICLOFENAC SODIUM 75 MG TBEC 772964 DICLOFENAC SODIUM Inactive PA VITAMIN D-3 2000 UNIT CAPS 1 CAP PO DAILY PA VITAMIN D-3 2000 UNIT CAPS CHOLECALCIFEROL Inactive PREVACID 30 MG CPDR Take 1 tablet by mouth daily-PRN PREVACID 30 MG CPDR 830081 LANSOPRAZOLE Inactive DOXYCYCLINE HYCLATE 100 MG TAB 1 tab twice a day for 14 days 2013 DOXYCYCLINE HYCLATE 100 MG TAB 7629479 DOXYCYCLINE HYCLATE Inactive XOPENEX 1.25 MG/3ML NEBU 1 neb every 4 hours if needed for cough/congestion XOPENEX 1.25 MG/3ML NEBU 415565 LEVALBUTEROL HCL Inactive CYCLOBENZAPRINE HCL 10 MG TABS 1/2 - 1 tab by mouth three times daily if needed for spasms/pain CYCLOBENZAPRINE HCL 10 MG TABS 326878 CYCLOBENZAPRINE HCL Inactive ALBUTEROL SULFATE 0.083 % NEBU SOLN one vial per nebulizer every 4-6 hours as needed ALBUTEROL SULFATE 0.083 % NEBU SOLN 988604 ALBUTEROL SULFATE Inactive CEFTIN 500 MG TAB 1 twice a day CEFTIN 500 MG TAB 225715 CEFUROXIME AXETIL Inactive ZOFRAN ODT 4 MG TBDP 1 pill dissolved by mouth every 4 hours if needed for nausea ZOFRAN ODT 4 MG TBDP 280636 ONDANSETRON Inactive ADULT ASPIRIN EC LOW STRENGTH 81 MG TBEC Take 1 tablet by mouth daily 2014 ADULT ASPIRIN EC LOW STRENGTH 81 MG TBEC 409756 ASPIRIN Inactive CALCIUM 600+D PLUS MINERALS 600-400 [...] or an apple NIACIN 500 MG TABS 853440 NIACIN Inactive NIASPAN 500 MG ORAL CR-TABS 1 pill nightly x 1 week, then 2 pills nightly x 1 week, then 3 pills nightly x 1 week, then 4 pills nightly NIASPAN 500 MG ORAL CR-TABS NIACIN (ANTIHYPERLIPIDEMIC) Inactive OXYCODONE HCL 5 MG ORAL CAPS 1 TAB PO Q HS OXYCODONE HCL 5 MG ORAL CAPS 3816411 OXYCODONE HCL Inactive FLUTICASONE PROPIONATE 50 MCG/ACT SUSP 1 to 2 sprays each nostril daily 04/21 FLUTICASONE PROPIONATE 50 MCG/ACT SUSP 2426002 FLUTICASONE PROPIONATE Inactive POLYTRIM 70450-5.1 UNIT/ML-% SOLN 1 gtt to affected eye q3h x 7 days POLYTRIM 59875-6.1 UNIT/ML-% SOLN 877080 POLYMYXIN B- TRIMETHOPRIM Inactive CHERATUSSIN AC 100-10 MG/5ML SYRP 1 tsp by mouth every 4 hours as needed for cough CHERATUSSIN AC 100-10 MG/5ML SYRP 315231 GUAIFENESIN-CODEINE Inactive LEVOTHYROXINE SODIUM 75 MCG TABS Take 1 tab daily LEVOTHYROXINE SODIUM 75 MCG TABS 865671 LEVOTHYROXINE SODIUM Inactive CLARITIN 10 MG TAB 1 tablet by mouth daily as needed for allergies CLARITIN 10 MG TAB 931624 LORATADINE Inactive FISH OIL 1000 MG CAPS 3 pills daily FISH OIL 1000 MG CAPS OMEGA-3 FATTY ACIDS Inactive ONDANSETRON 4 MG TBDP 1 q4h PRN nausea ONDANSETRON 4 MG TBDP 578961 ONDANSETRON Inactive ADVAIR DISKUS 250-50 MCG/DOSE AEPB 1 puff BID ADVAIR DISKUS 250-50 MCG/DOSE AEPB FLUTICASONE-SALMETEROL Inactive TRAMADOL HCL 50 MG TABS 1 tab po every 6 hrs prn pain TRAMADOL HCL 50 MG TABS 643641 TRAMADOL HCL Inactive TRIAMCINOLONE ACETONIDE 0.1 % CREA apply bid sparingly to rash TRIAMCINOLONE ACETONIDE 0.1 % CREA 3551312 TRIAMCINOLONE ACETONIDE Inactive BACTRIM DS 800-160 MG TAB 1 tab by mouth twice daily BACTRIM DS 800-160 MG TAB 999760 TRIMETHOPRIM-SULFAMETHOXAZOLE Inactive AZITHROMYCIN 250 MG TABS 2 po qd x 1 day, then 1 po qd x 4 days AZITHROMYCIN 250 MG TABS 1997810 AZITHROMYCIN Inactive CEFDINIR 300 MG CAPS by mouth twice a day CEFDINIR 300 MG CAPS 985671 CEFDINIR Inactive AZITHROMYCIN 250 MG TABS 2 pills on day 1, then 1 pill daily x 4 days AZITHROMYCIN 250 MG TABS 7993950 AZITHROMYCIN Inactive DOXYCYCLINE HYCLATE 100 MG CAP 1 cap by mouth twice daily DOXYCYCLINE HYCLATE 100 MG CAP 1834435 DOXYCYCLINE HYCLATE Inactive FUROSEMIDE 20 MG TABS 1 pill by mouth daily, for edema FUROSEMIDE 20 MG TABS 007680 FUROSEMIDE Inactive AZITHROMYCIN 250 MG TABS 2 po qd x 1 day, then 1 po qd x 4 days AZITHROMYCIN 250 MG TABS 0943525 AZITHROMYCIN Inactive CEFTIN 500 MG TAB 1 twice a day CEFTIN 500 MG TAB 200792 CEFUROXIME AXETIL Inactive CEFDINIR 300 MG CAPS 1 po BID x 10 days CEFDINIR 300 MG CAPS 506743 CEFDINIR Inactive BACTRIM DS 800-160 MG TAB 1 tab by mouth twice daily BACTRIM DS 800-160 MG TAB 856860 TRIMETHOPRIM-SULFAMETHOXAZOLE Inactive PREDNISONE 20 MG TAB 2 tabs daily for 3 days, 1 tab daily for 3 days, 1/2 tab daily for 2 days PREDNISONE 20 MG TAB 944431 PREDNISONE Inactive PREDNISONE 20 MG TAB take 3 tabs daily for 3 days, 2 tabs daily for 3 days, 1 tab daily for 3 days, 1/2 tab daily for 3 days PREDNISONE 20 MG TAB 264700 PREDNISONE Inactive BACTRIM DS 800-160 MG TAB 1 tab by mouth twice daily BACTRIM DS 800-160 MG TAB 19820606 TRIMETHOPRIM-SULFAMETHOXAZOLE Inactive Immunizations Vaccine Administration Date Value Standard Description Seasonal influenza vaccine, injectable, containing preservative, for > 3 years old (Afluria, FluLaval, Fluzone, Fluvirin, Fluarix, Agriflu(>=18 yo)) Fluzone (>3 yrs.) [UVS188] Influenza, seasonal, injectable influenza immunization (Flu Vax) has been administered Influenza - Unspecified Formulation [CVX88] influenza virus vaccine, unspecified formulation Seasonal influenza vaccine, injectable, containing preservative, for > 3 years old (Afluria, FluLaval, Fluzone, Fluvirin, Fluarix, Agriflu(>=18 yo)) Fluzone (>3 yrs.) [HXV013] Influenza, seasonal, injectable pneumococcal immunization administered Pneumovax 23 [CVX33] pneumococcal polysaccharide vaccine, 23 valent dT (Diphtheria and Tetanus) booster given given Td(adult) unspecified formulation Boostrix (Tetanus toxoid, reduced diphtheria toxoid and acellular pertussis vaccine, adsorbed), booster Boostrix [TYM713] tetanus toxoid, reduced diphtheria toxoid, and acellular pertussis vaccine, adsorbed Vital Signs Date Name Value Unit Range Description blood pressure, diastolic 68 mm[Hg] BP welodn blood pressure, systolic 137 mm[Hg] BP sys [...] temperature weight E&M 248.5 [lb_av] Weight Measured Diagnostic Results Date Name Value Unit Range Description Lab Report: Lipid Panel, HEPATIC PANEL - Chemistry cholesterol, serum 166 mg/dL 025-139 9030/12/06 triglyceride, serum, fasting 86 mg/dL 30-200 HDL [...] negative Encounters Code Encounter Date Provider Facility CPT-79912 Level 3 Est. Patient 14:50:29 CDT Gab Padron MD [facility] CPT-57566 Level 3 Est. Patient 14:46:09 CDT Tisha Lambert APRN [facility] CPT-31008 Level 4 New Patient 16:13:15 CDT Todd Callaway MD [facility] CPT-72092 Level 4 Est. Patient 13:18:33 CDT Gab Padron MD [facility] CPT-27552 Level 3 Est. Patient 15:20:50 CDT Jared Og MD [facility] CPT-80531 Level 3 Est. Patient 17:43:55 ELECTRICIAN DECK Gab Padron MD [facility] CPT-07685 Level 3 Est. Patient 17:07:49 ELECTRICIAN DECK Jared Og MD [facility] CPT-40981 Level 4 Est. Patient 19:55:18 ELECTRICIAN DECK Jared Og MD [facility] CPT-34729 Level 3 Est. Patient 20:13:34 ELECTRICIAN DECK Jared Og MD [facility] CPT-92035 Level 4 Est. Patient 16:31:27 CDT Gab Padron MD [facility] CPT-16624 Level 2 Est. Patient 12:23:38 CDT Jared Og MD [facility] CPT-30507 Level 3 Est. Patient 11:01:51 CDT Gab Padron MD [facility] CPT-28892 Level 3 Est. Patient 15:27:02 CDT Jared Og MD [facility] CPT-23478 Level 4 Est. Patient 09:25:27 CDT Gab Padron MD [facility] CPT-99846 Level 3 Est. Patient 10:29:41 CDT Rodrigo Sarah [facility] CPT-33835 Level 4 Est. Patient 17:51:05 CDT Gab Padron MD [facility] CPT-57744 Level 3 Est. Patient 14:18:08 CDT Gab Padron MD [facility] CPT-96164 Level 4 Est. Patient 10:18:54 CDT Gab Padron MD [facility] CPT-12776 Level 3 Est. Patient 11:30:07 CDT Rodrigo Sarah [facility] CPT-46275 Level 4 Est. Patient 21:02:30 ELECTRICIAN DECK Gab Padron MD [facility]-50968 Level 3 Est. Patient 11:02:19 ELECTRICIAN DECK Gab Padron MD [facility]-18901 Level 4 Est. Patient 22:24:31 ELECTRICIAN DECK Gab Padron MD [facility]-20101 Level 3 Est. Patient 18:33:46 ELECTRICIAN DECK Gab Padron MD [facility]-82892 Level 3 Est. Patient 16:19:11 CDT Yolande Lindsay MD [facility]-49766 Level 3 Est. Patient 18:59:14 CDT Yolande Lindsay MD [facility]-50395 Level 4 Est. Patient 21:29:26 CDT Yolande Lindsay MD [facility]-97362 Level 3 Est. Patient 07:37:45 CDT Yolande Lindsay MD [facility]-17189 Level 3 Est. Patient 17:03:46 CDT Yolande Lindsay MD [facility]-45646 Level 4 Est. Patient 20:02:13 ELECTRICIAN DECK Yolande Lindsay MD [facility]-48548 Level 3 Est. Patient 16:02:07 ELECTRICIAN DECK Alexis Ordaz MD [facility]-30148 Level 3 Est. Patient 12:41:24 ELECTRICIAN DECK Yolande Lindsay MD [facility]-56935 Level 3 Est. Patient 15:41:20 ELECTRICIAN DECK Yolande Lindsay MD PhD [facility]-28879 Level 3 Est. Patient 13:20:02 ELECTRICIAN DECK Yolande Lindsay MD [facility]-58713 Level 3 Est. Patient 15:00:38 CDT Jared Og MD [facility]-97613 Level 3 Est. Patient 10:22:32 CDT Yolande Lindsay MD [facility] CPT-28649 Level 3 Est. Patient 17:12:58 CDT Yolande Lindsay MD [facility]-45574 Level 4 Est. Patient 13:30:58 CDT Yolande Lindsay MD [facility] CPT-64197 Level 4 New Patient 09:02:42 CDT Jared Og MD [facility]-10386 Level 3 Est. Patient 08:19:07 CDT Yolande Lindsay MD [facility]-85085 Level 3 Est. Patient 12:00:13 ELECTRICIAN DECK Gab Padron MD [facility]-32926 Level 3 Est. Patient 16:15:23 ELECTRICIAN DECK Yolande Lindsay MD [facility]-07525 Level 2 Est. Patient 19:47:15 CDT Yolande Lindsay MD [facility] CPT-50599 Level 3 Est. Patient 21:38:31 CDT Yolande Lindsay MD [facility]-97677 Level 3 Est. Patient 10:25:12 CDT Adiel PERAZA [facility] CPT-54277 Level 4 Est. Patient 10:51:58 CDT Yolande Lindsay MD [facility]-83192 Level 3 Est. Patient 14:04:55 ELECTRICIAN DECK Rodrigo Sarah [facility] CPT-14260 Level 3 Est. Patient 10:46:35 ELECTRICIAN DECK Rodrigo Sarah [facility]-42565 Level 3 Est. Patient 14:24:37 ELECTRICIAN DECK Yolande Lindsay MD [facility]-95486 Level 3 Est. Patient 17:41:58 ELECTRICIAN DECK Yolande Lindsay MD [facility] CPT-40384 Level 2 Est. Patient 22:01:41 ELECTRICIAN DECK Rodrigo Sarah [facility] CPT-23281 Level 2 Est. Patient 22:01:11 ELECTRICIAN DECK Rodrigo Sarah [facility] CPT-93397 Level 3 Est. Patient 10:12:29 ELECTRICIAN DECK Rodrigo Sarah [facility] CPT-02188 Level 3 Est. Patient 11:05:44 CDT Alexis Ordaz MD [facility] CPT-34604 Level 3 Est. Patient 14:57:20 CDT Yolande Lindsay MD [facility]-83848 Level 3 Est. Patient 14:40:57 CDT Yolande Lindsay MD [facility]-99317 Level 3 Est. Patient 20:55:40 CDT Yolande Lindsay MD [facility] CPT-83845 Level 3 Est. Patient 12:42:38 ELECTRICIAN DECK Yolande Lindsay MD [facility]-49840 Level 3 Est. Patient 11:54:49 ELECTRICIAN DECK Des Hines MD [facility] CPT-06671 Level 3 Est. Patient 17:06:38 CDT Dewayne PERAZA [facility] Procedures Code Procedure Name Date Entry Date Standard Description CPT-J2930 Solu Medrol 125 mg (Methyl Prednisolone Sodium Succinate) 13:19:02 CDT CPT-83472 Abx/Therapy Injection 13:19:02 CDT CPT-J2930 Solu Medrol 125 mg (Methyl Prednisolone Sodium Succinate) 13:05:03 CDT CPT-50072 Hip, complete, 2-3 views - XRAY USE ONLY 17:19:04 ELECTRICIAN DECK CPT-90517 Venipuncture Draw Fee 08:37:59 ELECTRICIAN DECK CPT-90813 Liver Profile - LAB USE ONLY 08:37:59 ELECTRICIAN DECK CPT-72234 Lipid - LAB USE ONLY 08:37:58 ELECTRICIAN DECK CPT-75934 First Vx - Ix admin via ID IM or jet injects without counseling by physician 11:52:31 CDT CPT-13631 Fluzone Preservative Free Intramuscular Suspension 11:52 :31 CDT CPT-65972 Foot, left, comp min 3V - XRAY USE ONLY 09:24:54 CDT CPT-02660 Abd single AP View - XRAY USE ONLY 11:16:17 CDT CPT-93512 T spine AP/ Lat - XRAY USE ONLY 09:34:21 CDT CPT-25512 Chest 2V Frontal and Lat - XRAY USE ONLY 10:48:51 CDT CPT-46539 LS spine comp w obliq 13:28:00 ELECTRICIAN DECK CPT-J1040 Depo Medrol 80 mg (Methyl Prednisolone Acetate) 10:51: 28 ELECTRICIAN DECK CPT-J1100 Decadron 8mg (Dexamethasone) 10:51:28 ELECTRICIAN DECK CPT-66692 Abx/Therapy Injection 10:51:28 ELECTRICIAN DECK CPT-J1100 Decadron 8mg (Dexamethasone) 21:02:30 ELECTRICIAN DECK CPT-J1040 Depo Medrol 80 mg (Methyl Prednisolone Acetate) 21:02: 30 ELECTRICIAN DECK [id number] Event Monitor - MC Transmission 09:12:32 CDT 08/06 [id number] Event Monitor - MC review and interp 09:12:32 CDT [id number] Event Monitor - MC recording 09:12:32 CDT CPT-95466 EKG Trac and Interp 16:50:22 CDT CPT-J1030 Depo Medrol 40 mg (Methyl Prednisolone Acetate) 17:05: 54 CDT CPT-J1100 Decadron 4mg (Dexamethasone) 17:05:54 CDT CPT-65641 Abx/Therapy Injection 17:05:54 CDT CPT-J1100 Decadron 4mg (Dexamethasone) 16:55:28 CDT CPT-J1030 Depo Medrol 40 mg (Methyl Prednisolone Acetate) 16:55: 28 CDT CPT-77906 Ankle Complete - Min 3V 15:58:50 CDT CPT-52877 Knee 3V 15:58:50 CDT CPT-98954 Hip comp min 2V 15:58:50 CDT CPT-J2270 Morphine Sulfate 10 mg 14:25:44 ELECTRICIAN DECK CPT-J2550 Phenergan 12.5 mg (Promethazine) 14:25:44 ELECTRICIAN DECK CPT-52299 Abx/Therapy Injection 14:25:44 ELECTRICIAN DECK CPT-J2550 Phenergan 12.5 mg (Promethazine) 14:08:03 ELECTRICIAN DECK CPT-J2270 Morphine Sulfate 10 mg 14:08:03 ELECTRICIAN DECK CPT-41786 Bladder Scan 15:00:38 CDT CPT-TCMM Transitional Care Mgmt-Moderate 09:52:22 CDT CPT-J1030 Depo Medrol 40 mg (Methyl Prednisolone Acetate) 10:55: 18 CDT CPT-J1100 Decadron 4mg (Dexamethasone) 10:55:18 CDT CPT-69163 Abx/Therapy Injection 10:55:18 CDT CPT-J1030 Depo Medrol 40 mg (Methyl Prednisolone Acetate) 10:22: 32 CDT CPT-J1100 Decadron 4mg (Dexamethasone) 10:22:32 CDT CPT-16092 Postop F/U Visit 14:37:13 CDT CPT-25642 Ankle Complete - Min 3V 17:11:58 CDT CPT-70687 Foot comp min 3V 17:11:58 CDT CPT-54485 Bladder Scan 09:56:58 CDT CPT-12510 Postop F/U Visit 09:56:58 CDT CPT-69755 Cystoscopy 09:02:42 CDT CPT-14973 Bladder Scan 09:02:42 CDT CPT-44024 Abd single AP View 16:00:35 CDT CPT-73039 Administration single or combination vaccine inc oral 10 :15:43 CDT CPT-10972 Influenza split virus > age 3 10:15:43 CDT CPT-81432 Nail Avulsion 09:24:57 CDT CPT-OV Office Visit 11:15:41 CDT CPT-45355 Abx/Therapy Injection 10:51:30 CDT CPT-J3301 Kenalog 40 mg (Triamcinolone Acetonide) 10:25:12 CDT CPT-J1100 Decadron 4mg (Dexamethasone) 10:25:12 CDT CPT-16082 Anoscopy diagnostic 10:36:12 CDT CPT-OV Office Visit 15:34:31 CDT CPT-45055 Abx/Therapy Injection 08:21:15 ELECTRICIAN DECK CPT-J1885 Toradol 60 mg (Ketorolac) 10:46:35 ELECTRICIAN DECK CPT-OV Office Visit 19:51:16 ELECTRICIAN DECK CPT-40614 Spec Collection and Handling Fee 14:34:18 ELECTRICIAN DECK CPT-PV Prev. Care Visit 14:19:18 ELECTRICIAN DECK CPT-92092 Postop F/U Visit 14:47:51 ELECTRICIAN DECK CPT-05040 Postop F/U Visit 15:15:14 ELECTRICIAN DECK CPT-49400 Postop F/U Visit 14:41:43 CDT CPT-02458 Postop F/U Visit 15:47:46 CDT CPT-OV Office Visit 15:27:23 CDT CPT-OV Office Visit 17:20:34 CDT CPT-84486 Abx/Therapy Injection 15:05:57 CDT CPT-J1100 Decadron 8mg (Dexamethasone) 14:44:57 CDT CPT-J1040 Depo Medrol 80 mg (Methyl Prednisolone Acetate) 14:44: 57 CDT CPT-JTINJ Joint Injection 10:17:37 CDT CPT-48038 Administration 2+ single or combination vaccines inc oral 13:01:46 ELECTRICIAN DECK CPT-57376 Administration single or combination vaccine inc oral 13 :01:46 ELECTRICIAN DECK CPT-39585 Pneumovax 13:01:46 ELECTRICIAN DECK CPT-63206 Influenza split virus > age 3 13:01:46 ELECTRICIAN DECK CPT-52866 Administration single or combination vaccine inc oral 08 :56:49 CDT CPT-47163 Tdap 08:56:49 CDT
[2017-03-21 20:35] VITALS: BP 132/72
--- OUTSIDE RECORDS SUMMARY | 2017-03-21 20:36 | XMS REPORT | Clinical Summary ---
Author Author Admin, E Organization [facility] Address Unknown Phone Unavailable Allergies, Adverse Reactions, Alerts Allergy Name Reaction Description Start Date Severity Status Provider VALENTIN Critical Active Rodrigo Fracharlottel [employer] CHLORHEXIDINE GLUCONATE tongue and gums swollen Critical Active Hoadante Otto RMA NORFLEX Rash Critical Active Silvestrellina Frazell [employer] TRAZODONE HCL sees things Critical Active Dewayne [...] Pain in limb Heel spur 726.73 Active aGb Padron MD Calcaneal spur Breast tenderness 611.71 [...] 1 tab by mouth twice daily TRIMETHOPRIM-SULFAMETHOXAZOLE 53817823670 No Longer Active Tisha Lambert APRN Active ADVAIR DISKUS 250-50 MCG/DOSE AEPB 1 puff BID FLUTICASONE-SALMETEROL 63915292843 No Longer Active Todd Callaway MD Active ONDANSETRON 4 MG TBDP 1 q4h PRN nausea ONDANSETRON 27065403035 No Longer Active LONNIE Iglesias Active FISH OIL 1000 MG CAPS 3 pills daily OMEGA-3 FATTY ACIDS 32093741951 No Longer Active LONNIE Iglesias Active CETIRIZINE HCL 10 MG ORAL TABS 1 po qd PRN Allergies CETIRIZINE HCL 09126640608 Active Gab Padron MD Active CLARITIN 10 MG TAB 1 tablet by mouth daily as needed for allergies LORATADINE 01131417181 No Longer Active Gab Padron MD Active PREDNISONE 20 MG TAB take 3 tabs daily for 3 days, 2 tabs daily for 3 days, 1 tab daily for 3 days, 1/2 tab daily for 3 days PREDNISONE 67664007179 No Longer Active Tisha Lambert APRN Active TRAMADOL HCL 50 MG TABS 1 tab po every 6 hrs prn pain TRAMADOL HCL 29317688040 Active Gab Padron MD Active PREDNISONE 20 MG TAB 2 tabs daily for 3 days, 1 tab daily for 3 days, 1/2 tab daily for 2 days PREDNISONE 96412613057 No Longer Active Gab Padron MD Active ZOFRAN ODT 4 MG TBDP 1 po q6hr PRN Nausea ONDANSETRON 62239957653 Active Gab Padron MD Active IBUPROFEN 600 MG TAB 1 tablet by mouth every 6 hours for 7 days, then 1 tablet every 6 hours as needed. Take with food IBUPROFEN 27788205420 Active Rodrigo Sarah APRN Active BACTRIM DS 800-160 MG TAB 1 tab by mouth twice daily TRIMETHOPRIM-SULFAMETHOXAZOLE 87317610739 No Longer Active Gab Padron MD Active LEVOTHYROXINE SODIUM 75 MCG TABS Take 1 tab daily LEVOTHYROXINE SODIUM 24959174816 No Longer Active Mariana Cuadra [facility] Active SYNTHROID 88 MCG ORAL TABS Take one by mouth daily LEVOTHYROXINE SODIUM 14550640906 Active Gab Padron MD Active CHERATUSSIN AC 100-10 MG/5ML SYRP 1 tsp by mouth every 4 hours as needed for cough GUAIFENESIN-CODEINE 61779903295 No Longer Active Gab Padron MD Active POLYTRIM 21096-1.1 UNIT/ML-% SOLN 1 gtt to affected eye q3h x 7 days POLYMYXIN B-TRIMETHOPRIM 73165006959 No Longer Active Gab Padron MD Active FLUTICASONE PROPIONATE 50 MCG/ACT SUSP 1 to 2 sprays each nostril daily 04/21 FLUTICASONE PROPIONATE 46619444191 No Longer Active Gab Padron MD Active TRILEPTAL 600 MG TABS Take one 1 tablet in Am and 1 tablet at night OXCARBAZEPINE 78477747886 Active Gab Padron MD Active CEFDINIR 300 MG CAPS 1 po BID x 10 days CEFDINIR 51425916170 No Longer Active Rodrigo Sarah APRN Active CEFTIN 500 MG TAB 1 twice a day CEFUROXIME AXETIL 08513962793 No Longer Active Gab Padron MD Active AZITHROMYCIN 250 MG TABS 2 po qd x 1 day, then 1 po qd x 4 days AZITHROMYCIN 04392111060 No Longer Active Rodrigo Sarah APRN Active OXYCODONE HCL 5 MG ORAL CAPS 1 TAB PO Q HS OXYCODONE HCL 22760600917 No Longer Active Rodrigo Sarah APRN Active NIASPAN 500 MG ORAL CR-TABS 1 pill nightly x 1 week, then 2 pills nightly x 1 week, then 3 pills nightly x 1 week, then 4 pills nightly NIACIN (ANTIHYPERLIPIDEMIC) 00720297197 No Longer Active Rodrigo Sarah APRN Active NIACIN 500 MG TABS 1 pill by mouth nightly x 1 week, then 2 pills x 1 week, then 3 pills x 1 week, then 4 pills nightly - take after evening meal, with applesauce or an apple NIACIN 31034313119 No Longer Active Yolande Lindsay MD PhD Active TRIAMCINOLONE ACETONIDE 0.1 % CREA apply bid sparingly to rash TRIAMCINOLONE ACETONIDE 22395632082 Active Yolande Lindsay MD PhD Active FUROSEMIDE 20 MG TAB 1 tablet by mouth daily FUROSEMIDE 89116120445 Active Gab Padron MD Active LISINOPRIL 20 MG ORAL TABS 1 tab by mouth daily LISINOPRIL 56120137581 Active Gab Padron MD Active FUROSEMIDE 20 MG TABS 1 pill by mouth daily, for edema FUROSEMIDE 48838308150 No Longer Active Yolande Lindsay MD PhD Active ATORVASTATIN CALCIUM 10 MG TABS 1 pill by mouth daily, for cholesterol 09/06 ATORVASTATIN CALCIUM 67696747223 Active Gab Padron MD Active CALCIUM 600+D PLUS MINERALS 600-400 MG-UNIT ORAL CHEW 1 tab by mouth daily CALCIUM CARBONATE-VIT D-MIN 33138655126 No Longer Active Yolande Lindsay MD PhD Active CYCLOBENZAPRINE HCL 10 MG TABS 1 tablet by mouth three times daily as needed for muscle spasm/pain CYCLOBENZAPRINE HCL 28069687970 Active Yolande Lindsay MD PhD Active ADULT ASPIRIN EC LOW STRENGTH 81 MG TBEC Take 1 tablet by mouth daily 2014 ASPIRIN 89585984938 No Longer Active Yolande Lindsay MD PhD Active ZOFRAN ODT 4 MG TBDP 1 pill dissolved by mouth every 4 hours if needed for nausea ONDANSETRON 05743152120 No Longer Active Yolande Lindsay MD PhD Active CEFTIN 500 MG TAB 1 twice a day CEFUROXIME AXETIL 68284286878 No Longer Active Yolande Lindsay MD PhD Active ALBUTEROL SULFATE 0.083 % NEBU SOLN one vial per nebulizer every 4-6 hours as needed ALBUTEROL SULFATE 71703221261 No Longer Active Alexis Ordaz MD Active DOXYCYCLINE HYCLATE 100 MG CAP 1 cap by mouth twice daily DOXYCYCLINE HYCLATE 05026065219 No Longer Active Yolande Lindsay MD PhD Active CYCLOBENZAPRINE HCL 10 MG TABS 1/2 - 1 tab by mouth three times daily if needed for spasms/pain CYCLOBENZAPRINE HCL 72609568672 No Longer Active Yolande Lindsay MD PhD Active AZITHROMYCIN 250 MG TABS 2 pills on day 1, then 1 pill daily x 4 days AZITHROMYCIN 05341459585 No Longer Active Yolande Lindsay MD PhD Active XOPENEX 1.25 MG/3ML NEBU 1 neb every 4 hours if needed for cough/congestion LEVALBUTEROL HCL 28905656517 No Longer Active Yolande Lindsay MD PhD Active DOXYCYCLINE HYCLATE 100 MG TAB 1 tab twice a day for 14 days 2013 DOXYCYCLINE HYCLATE 09233134216 No Longer Active Yolande Lindsay MD PhD Active PREVACID 30 MG CPDR Take 1 tablet by mouth daily-PRN LANSOPRAZOLE 85744446042 No Longer Active Yolande Lindsay MD PhD Active PA VITAMIN D-3 2000 UNIT CAPS 1 CAP PO DAILY CHOLECALCIFEROL 05030445414 No Longer Active Yolande Lindsay MD PhD Active CEFDINIR 300 MG CAPS by mouth twice a day CEFDINIR 39391556841 No Longer Active Gab Padron MD Active TOPAMAX 50 MG TABS 1 PO twice daily TOPIRAMATE 74536641610 Active Yolande Lindsay MD PhD Active AZITHROMYCIN 250 MG TABS 2 po qd x 1 day, then 1 po qd x 4 days AZITHROMYCIN 21264736676 No Longer Active Yolande Lindsay MD PhD Active DICLOFENAC SODIUM 75 MG TBEC 1 tablet by q 12 hours PRN headaches DICLOFENAC SODIUM 34054570425 No Longer Active Yolande Lindsay MD PhD Active FLONASE 50 MCG/ACT SUSP 1 spray each nostril am and hs FLUTICASONE PROPIONATE 17294346753 No Longer Active Todd Callaway MD Active ANUSOL-HC 25 MG SUPPOSITORY 1 rectally twice a day as needed for hemorrhoids HYDROCORTISONE JAYDEN (RECTAL) 09099014453 No Longer Active Yolande Lindsay MD PhD Active ANUSOL-HC 25 MG SUPPOSITORY 1 suppository rectally each evening as needed for anal fissure HYDROCORTISONE JAYDEN (RECTAL) 06517021682 No Longer Active LONNIE Iglesias Active VALIUM 5 MG TAB 1 po 30 minutes prior to your MRI DIAZEPAM 98560928099 No Longer Active LONNIE Iglesias Active METHOCARBAMOL 750 MG TABS 1 PO QID PRN METHOCARBAMOL 87633446935 No Longer Active Daphne Wetzel APRN Active NITROSTAT 0.4 MG SUBL as directed NITROGLYCERIN 21046304666 No Longer Active Rodrigo Sarah APRN Active ROBAXIN-750 750 MG TABS 2 four times a day for 3 days as needed for muscle spasm, then 1 four times a day as needed METHOCARBAMOL 85158765820 No Longer Active Rodrigo Sarah APRN Active HYDROCODONE-ACETAMINOPHEN 5-325 MG TABS 1 q 4-6 hrs prn HYDROCODONE-ACETAMINOPHEN 58529050275 No Longer Active Rodrigo Sarah [employer] Active VERAPAMIL HCL CR 180 MG CR-TABS TAKE 1 TAB DAILY VERAPAMIL HCL 41721267773 No Longer Active Yolande Lindsay MD PhD Active BACTRIM DS 800-160 MG TAB 1 tab by mouth twice daily TRIMETHOPRIM-SULFAMETHOXAZOLE 96874595474 No Longer Active Yolande Lindsay MD PhD Active NEXIUM 40 MG PACK 1 by mouth daily ESOMEPRAZOLE MAGNESIUM 42404506276 No Longer Active Des Hines MD Active EPIPEN 2-CHARLETTE 0.3 MG/0.3ML OMARI as need for allergic reaction EPINEPHRINE 24786848509 Active Yolande Lindsay MD PhD Active NEXIUM 40 MG CPDR 1 PO Q D DAY ESOMEPRAZOLE MAGNESIUM 63802409122 No Longer Active Sadia Perry RN Active NEXIUM 40 MG PACK 1 by mouth daily NEXIUM 40 MG PACK ESOMEPRAZOLE MAGNESIUM Inactive VERAPAMIL HCL CR 180 MG CR-TABS TAKE 1 TAB DAILY VERAPAMIL HCL CR 180 MG CR-TABS VERAPAMIL HCL Inactive HYDROCODONE-ACETAMINOPHEN 5-325 MG TABS 1 q 4-6 hrs prn HYDROCODONE-ACETAMINOPHEN 5-325 MG TABS 665499 HYDROCODONE-ACETAMINOPHEN Inactive ROBAXIN-750 750 MG TABS 2 four times a day for 3 days as needed for muscle spasm, then 1 four times a day as needed ROBAXIN-750 750 MG TABS 325706 METHOCARBAMOL Inactive NITROSTAT 0.4 MG SUBL as directed NITROSTAT 0.4 MG SUBL 147589 NITROGLYCERIN Inactive METHOCARBAMOL 750 MG TABS 1 PO QID PRN METHOCARBAMOL 750 MG TABS 402032 METHOCARBAMOL Inactive VALIUM 5 MG TAB 1 po 30 minutes prior to your MRI VALIUM 5 MG TAB 241641 DIAZEPAM Inactive ANUSOL-HC 25 MG SUPPOSITORY 1 suppository rectally each evening as needed for anal fissure ANUSOL-HC 25 MG SUPPOSITORY 8120196 HYDROCORTISONE JAYDEN (RECTAL) Inactive ANUSOL-HC 25 MG SUPPOSITORY 1 rectally twice a day as needed for hemorrhoids ANUSOL-HC 25 MG SUPPOSITORY 4022585 HYDROCORTISONE JAYDEN (RECTAL) Inactive FLONASE 50 MCG/ACT SUSP 1 spray each nostril am and hs FLONASE 50 MCG/ACT SUSP 2519116 FLUTICASONE PROPIONATE Inactive DICLOFENAC SODIUM 75 MG TBEC 1 tablet by q 12 hours PRN headaches DICLOFENAC SODIUM 75 MG TBEC 585770 DICLOFENAC SODIUM Inactive PA VITAMIN D-3 2000 UNIT CAPS 1 CAP PO DAILY PA VITAMIN D-3 2000 UNIT CAPS CHOLECALCIFEROL Inactive PREVACID 30 MG CPDR Take 1 tablet by mouth daily-PRN PREVACID 30 MG CPDR 881215 LANSOPRAZOLE Inactive DOXYCYCLINE HYCLATE 100 MG TAB 1 tab twice a day for 14 days 2013 DOXYCYCLINE HYCLATE 100 MG TAB 7162334 DOXYCYCLINE HYCLATE Inactive XOPENEX 1.25 MG/3ML NEBU 1 neb every 4 hours if needed for cough/congestion XOPENEX 1.25 MG/3ML NEBU 733049 LEVALBUTEROL HCL Inactive CYCLOBENZAPRINE HCL 10 MG TABS 1/2 - 1 tab by mouth three times daily if needed for spasms/pain CYCLOBENZAPRINE HCL 10 MG TABS 953148 CYCLOBENZAPRINE HCL Inactive ALBUTEROL SULFATE 0.083 % NEBU SOLN one vial per nebulizer every 4-6 hours as needed ALBUTEROL SULFATE 0.083 % NEBU SOLN 257478 ALBUTEROL SULFATE Inactive CEFTIN 500 MG TAB 1 twice a day CEFTIN 500 MG TAB 813338 CEFUROXIME AXETIL Inactive ZOFRAN ODT 4 MG TBDP 1 pill dissolved by mouth every 4 hours if needed for nausea ZOFRAN ODT 4 MG TBDP 297300 ONDANSETRON Inactive ADULT ASPIRIN EC LOW STRENGTH 81 MG TBEC Take 1 tablet by mouth daily 2014 ADULT ASPIRIN EC LOW STRENGTH 81 MG TBEC 787277 ASPIRIN Inactive CALCIUM 600+D PLUS MINERALS 600-400 [...] or an apple NIACIN 500 MG TABS 308179 NIACIN Inactive NIASPAN 500 MG ORAL CR-TABS 1 pill nightly x 1 week, then 2 pills nightly x 1 week, then 3 pills nightly x 1 week, then 4 pills nightly NIASPAN 500 MG ORAL CR-TABS NIACIN (ANTIHYPERLIPIDEMIC) Inactive OXYCODONE HCL 5 MG ORAL CAPS 1 TAB PO Q HS OXYCODONE HCL 5 MG ORAL CAPS 4726753 OXYCODONE HCL Inactive FLUTICASONE PROPIONATE 50 MCG/ACT SUSP 1 to 2 sprays each nostril daily 04/21 FLUTICASONE PROPIONATE 50 MCG/ACT SUSP 2909770 FLUTICASONE PROPIONATE Inactive POLYTRIM 13471-6.1 UNIT/ML-% SOLN 1 gtt to affected eye q3h x 7 days POLYTRIM 18545-6.1 UNIT/ML-% SOLN 787295 POLYMYXIN B- TRIMETHOPRIM Inactive CHERATUSSIN AC 100-10 MG/5ML SYRP 1 tsp by mouth every 4 hours as needed for cough CHERATUSSIN AC 100-10 MG/5ML SYRP 905473 GUAIFENESIN-CODEINE Inactive LEVOTHYROXINE SODIUM 75 MCG TABS Take 1 tab daily LEVOTHYROXINE SODIUM 75 MCG TABS 400305 LEVOTHYROXINE SODIUM Inactive CLARITIN 10 MG TAB 1 tablet by mouth daily as needed for allergies CLARITIN 10 MG TAB 220842 LORATADINE Inactive FISH OIL 1000 MG CAPS 3 pills daily FISH OIL 1000 MG CAPS OMEGA-3 FATTY ACIDS Inactive ONDANSETRON 4 MG TBDP 1 q4h PRN nausea ONDANSETRON 4 MG TBDP 589297 ONDANSETRON Inactive ADVAIR DISKUS 250-50 MCG/DOSE AEPB 1 puff BID ADVAIR DISKUS 250-50 MCG/DOSE AEPB FLUTICASONE-SALMETEROL Inactive BACTRIM DS 800-160 MG TAB 1 tab by mouth twice daily BACTRIM DS 800-160 MG TAB 428967 TRIMETHOPRIM-SULFAMETHOXAZOLE Inactive AZITHROMYCIN 250 MG TABS 2 po qd x 1 day, then 1 po qd x 4 days AZITHROMYCIN 250 MG TABS 5963262 AZITHROMYCIN Inactive CEFDINIR 300 MG CAPS by mouth twice a day CEFDINIR 300 MG CAPS 760271 CEFDINIR Inactive AZITHROMYCIN 250 MG TABS 2 pills on day 1, then 1 pill daily x 4 days AZITHROMYCIN 250 MG TABS 8700500 AZITHROMYCIN Inactive DOXYCYCLINE HYCLATE 100 MG CAP 1 cap by mouth twice daily DOXYCYCLINE HYCLATE 100 MG CAP 6672794 DOXYCYCLINE HYCLATE Inactive FUROSEMIDE 20 MG TABS 1 pill by mouth daily, for edema FUROSEMIDE 20 MG TABS 316656 FUROSEMIDE Inactive AZITHROMYCIN 250 MG TABS 2 po qd x 1 day, then 1 po qd x 4 days AZITHROMYCIN 250 MG TABS 3495875 AZITHROMYCIN Inactive CEFTIN 500 MG TAB 1 twice a day CEFTIN 500 MG TAB 215685 CEFUROXIME AXETIL Inactive CEFDINIR 300 MG CAPS 1 po BID x 10 days CEFDINIR 300 MG CAPS 776664 CEFDINIR Inactive BACTRIM DS 800-160 MG TAB 1 tab by mouth twice daily BACTRIM DS 800-160 MG TAB 19820606 TRIMETHOPRIM-SULFAMETHOXAZOLE Inactive PREDNISONE 20 MG TAB 2 tabs daily for 3 days, 1 tab daily for 3 days, 1/2 tab daily for 2 days PREDNISONE 20 MG TAB 234196 PREDNISONE Inactive PREDNISONE 20 MG TAB take 3 tabs daily for 3 days, 2 tabs daily for 3 days, 1 tab daily for 3 days, 1/2 tab daily for 3 days PREDNISONE 20 MG TAB 611655 PREDNISONE Inactive BACTRIM DS 800-160 MG TAB 1 tab by mouth twice daily BACTRIM DS 800-160 MG TAB 19820606 TRIMETHOPRIM-SULFAMETHOXAZOLE Inactive Immunizations Vaccine Administration Date Value Standard Description Seasonal influenza vaccine, injectable, containing preservative, for > 3 years old (Afluria, FluLaval, Fluzone, Fluvirin, Fluarix, Agriflu(>=18 yo)) Fluzone (>3 yrs.) [TNQ481] Influenza, seasonal, injectable influenza immunization (Flu Vax) has been administered Influenza - Unspecified Formulation [CVX88] influenza virus vaccine, unspecified formulation Seasonal influenza vaccine, injectable, containing preservative, for > 3 years old (Afluria, FluLaval, Fluzone, Fluvirin, Fluarix, Agriflu(>=18 yo)) Fluzone (>3 yrs.) [TTI811] Influenza, seasonal, injectable pneumococcal immunization administered Pneumovax 23 [CVX33] pneumococcal polysaccharide vaccine, 23 valent dT (Diphtheria and Tetanus) booster given given Td(adult) unspecified formulation Boostrix (Tetanus toxoid, reduced diphtheria toxoid and acellular pertussis vaccine, adsorbed), booster Boostrix [ZOH221] tetanus toxoid, reduced diphtheria toxoid, and acellular [...] Measured blood pressure, diastolic 74 mm[Hg] BP wledon blood pressure, systolic 131 mm[Hg] BP sys [...] PANEL - Chemistry cholesterol, serum 166 mg/dL 881-011 9020/12/06 triglyceride, serum, fasting 86 mg/dL 30-200 HDL [...] negative Encounters Code Encounter Date Provider Facility CPT-92942 Level 3 Est. Patient 14:46:09 CDT Tisha Lambert APRN [facility] CPT-88114 Level 4 New Patient 16:13:15 CDT Todd Callaway MD [facility] CPT-82655 Level 4 Est. Patient 13:18:33 CDT Gab Padron MD [facility] CPT-91149 Level 3 Est. Patient 15:20:50 CDT Jared Og MD [facility] CPT-46220 Level 3 Est. Patient 17:43:55 CASE AIDE Gab Padron MD [facility] CPT-75117 Level 3 Est. Patient 17:07:49 CASE AIDE Jared Og MD [facility] CPT-95910 Level 4 Est. Patient 19:55:18 CASE AIDE Jared Og MD [facility] CPT-38488 Level 3 Est. Patient 20:13:34 CASE AIDE Jared Og MD [facility] CPT-95340 Level 4 Est. Patient 16:31:27 CDT Gab Padron MD [facility] CPT-99209 Level 2 Est. Patient 12:23:38 CDT Jared Og MD [facility]-15495 Level 3 Est. Patient 11:01:51 CDT Gab Padron MD [facility]-95719 Level 3 Est. Patient 15:27:02 CDT Jared Og MD [facility] [place]-77437 Level 4 Est. Patient 09:25:27 CDT aGb Padron MD [facility]-92086 Level 3 Est. Patient 10:29:41 CDT Rodrigo Sarah [facility]-47765 Level 4 Est. Patient 17:51:05 CDT Gab Padron MD [facility]-46476 Level 3 Est. Patient 14:18:08 CDT Gab Padron MD [facility]-69778 Level 4 Est. Patient 10:18:54 CDT Gab Padron MD [facility]-25202 Level 3 Est. Patient 11:30:07 CDT Rodrigo Sarah [facility] CPT-10424 Level 4 Est. Patient 21:02:30 CASE AIDE Gab Padron MD [facility]-90512 Level 3 Est. Patient 11:02:19 CASE AIDE Gab Padron MD [facility] CPT-38357 Level 4 Est. Patient 22:24:31 CASE AIDE Gab Padron MD [facility] CPT-94475 Level 3 Est. Patient 18:33:46 CASE AIDE Gab Padron MD [facility] CPT-31395 Level 3 Est. Patient 16:19:11 CDT Yolande Lindsay MD PhD [facility]-40257 Level 3 Est. Patient 18:59:14 CDT Yolande Lindsay MD [facility]-63981 Level 4 Est. Patient 21:29:26 CDT Yolande Lindsay MD [facility]-99703 Level 3 Est. Patient 07:37:45 CDT Yolande Lindsay MD [facility] CPT-54546 Level 3 Est. Patient 17:03:46 CDT Yolande Lindsay MD [facility]-63272 Level 4 Est. Patient 20:02:13 CASE AIDE Yolande Lindsay MD [facility] CPT-78695 Level 3 Est. Patient 16:02:07 CASE AIDE Alexis Ordaz MD [facility] CPT-80698 Level 3 Est. Patient 12:41:24 CASE AIDE Yolande Lindsay MD [facility]-20959 Level 3 Est. Patient 15:41:20 CASE AIDE Yolande Lindsay MD [facility]-31446 Level 3 Est. Patient 13:20:02 CASE AIDE Yolande Lindsay MD [facility] CPT-05411 Level 3 Est. Patient 15:00:38 CDT Jared Og MD [facility]-45324 Level 3 Est. Patient 10:22:32 CDT Yolande Lindsay MD [facility] CPT-59619 Level 3 Est. Patient 17:12:58 CDT Yolande Lindsay MD [facility] CPT-40678 Level 4 Est. Patient 13:30:58 CDT Yolande Lindsay MD [facility] CPT-30808 Level 4 New Patient 09:02:42 CDT Jared Og MD [facility] CPT-80283 Level 3 Est. Patient 08:19:07 CDT Yolande Lindsay MD [facility]-16343 Level 3 Est. Patient 12:00:13 CASE AIDE Gab Padron MD [facility] CPT-73570 Level 3 Est. Patient 16:15:23 CASE AIDE Yolande Lindsay MD [facility]-12163 Level 2 Est. Patient 19:47:15 CDT Yolande Lindsay MD [facility]-57198 Level 3 Est. Patient 21:38:31 CDT Yolande Lindsay MD [facility]-04811 Level 3 Est. Patient 10:25:12 CDT Adiel PERAZA [facility]-60499 Level 4 Est. Patient 10:51:58 CDT Yolande Lindsay MD [facility]-01421 Level 3 Est. Patient 14:04:55 CASE AIDE Rodrigo Sarah [facility]-86871 Level 3 Est. Patient 10:46:35 CASE AIDE Rodrigo Sarah [facility]-67659 Level 3 Est. Patient 14:24:37 CASE AIDE Yolande Lindsay MD [facility]-53118 Level 3 Est. Patient 17:41:58 CASE AIDE Yolande Lindsay MD [facility]-18007 Level 2 Est. Patient 22:01:41 CASE AIDE Rodrigo Sarah [facility]-38804 Level 2 Est. Patient 22:01:11 CASE AIDE Rodrigo Sarah [facility]-43597 Level 3 Est. Patient 10:12:29 CASE AIDE Rodrigo Sarah [facility]-13144 Level 3 Est. Patient 11:05:44 CDT Alexis Ordaz MD [facility]-22284 Level 3 Est. Patient 14:57:20 CDT Yolande Lindsay MD [facility]-86703 Level 3 Est. Patient 14:40:57 CDT Yolande Lindsay MD [facility]-41188 Level 3 Est. Patient 20:55:40 CDT Yolande Lindsay MD PhD [facility] CPT-72687 Level 3 Est. Patient 12:42:38 CASE AIDE Yolande Lindsay MD PhD [facility] CPT-58672 Level 3 Est. Patient 11:54:49 CASE AIDE Des Hines MD [facility] CPT-15150 Level 3 Est. Patient 17:06:38 CDT Dewayne PERAZA [facility] Procedures Code Procedure Name Date Entry Date Standard Description CPT-J2930 Solu Medrol 125 mg (Methyl Prednisolone Sodium Succinate) 13:19:02 CDT CPT-40788 Abx/Therapy Injection 13:19:02 CDT CPT-J2930 Solu Medrol 125 mg (Methyl Prednisolone Sodium Succinate) 13:05:03 CDT CPT-67843 Hip, complete, 2-3 views - XRAY USE ONLY 17:19:04 CASE AIDE CPT-31104 Venipuncture Draw Fee 08:37:59 CASE AIDE CPT-12989 Liver Profile - LAB USE ONLY 08:37:59 CASE AIDE CPT-69855 Lipid - LAB USE ONLY 08:37:58 CASE AIDE CPT-37769 First Vx - Ix admin via ID IM or jet injects without counseling by physician 11:52:31 CDT CPT-53594 Fluzone Preservative Free Intramuscular Suspension 11:52 :31 CDT CPT-30692 Foot, left, comp min 3V - XRAY USE ONLY 09:24:54 CDT CPT-14857 Abd single AP View - XRAY USE ONLY 11:16:17 CDT CPT-33148 T spine AP/ Lat - XRAY USE ONLY 09:34:21 CDT CPT-75450 Chest 2V Frontal and Lat - XRAY USE ONLY 10:48:51 CDT CPT-18932 LS spine comp w obliq 13:28:00 CASE AIDE CPT-J1040 Depo Medrol 80 mg (Methyl Prednisolone Acetate) 10:51: 28 CASE AIDE CPT-J1100 Decadron 8mg (Dexamethasone) 10:51:28 CASE AIDE CPT-79633 Abx/Therapy Injection 10:51:28 CASE AIDE CPT-J1100 Decadron 8mg (Dexamethasone) 21:02:30 CASE AIDE CPT-J1040 Depo Medrol 80 mg (Methyl Prednisolone Acetate) 21:02: 30 CASE AIDE [id number] Event Monitor - MC Transmission 09:12:32 CDT 08/06 [id number] Event Monitor - MC review and interp 09:12:32 CDT [id number] Event Monitor - MC recording 09:12:32 CDT CPT-99452 EKG Trac and Interp 16:50:22 CDT CPT-J1030 Depo Medrol 40 mg (Methyl Prednisolone Acetate) 17:05: 54 CDT CPT-J1100 Decadron 4mg (Dexamethasone) 17:05:54 CDT CPT-43455 Abx/Therapy Injection 17:05:54 CDT CPT-J1100 Decadron 4mg (Dexamethasone) 16:55:28 CDT CPT-J1030 Depo Medrol 40 mg (Methyl Prednisolone Acetate) 16:55: 28 CDT CPT-98687 Ankle Complete - Min 3V 15:58:50 CDT CPT-71675 Knee 3V 15:58:50 CDT CPT-48058 Hip comp min 2V 15:58:50 CDT CPT-J2270 Morphine Sulfate 10 mg 14:25:44 CASE AIDE CPT-J2550 Phenergan 12.5 mg (Promethazine) 14:25:44 CASE AIDE CPT-67678 Abx/Therapy Injection 14:25:44 CASE AIDE CPT-J2550 Phenergan 12.5 mg (Promethazine) 14:08:03 CASE AIDE CPT-J2270 Morphine Sulfate 10 mg 14:08:03 CASE AIDE CPT-25313 Bladder Scan 15:00:38 CDT CPT-TCMM Transitional Care Mgmt-Moderate 09:52:22 CDT CPT-J1030 Depo Medrol 40 mg (Methyl Prednisolone Acetate) 10:55: 18 CDT CPT-J1100 Decadron 4mg (Dexamethasone) 10:55:18 CDT CPT-80874 Abx/Therapy Injection 10:55:18 CDT CPT-J1030 Depo Medrol 40 mg (Methyl Prednisolone Acetate) 10:22: 32 CDT CPT-J1100 Decadron 4mg (Dexamethasone) 10:22:32 CDT CPT-72050 Postop F/U Visit 14:37:13 CDT CPT-04503 Ankle Complete - Min 3V 17:11:58 CDT CPT-17236 Foot comp min 3V 17:11:58 CDT CPT-49909 Bladder Scan 09:56:58 CDT CPT-04887 Postop F/U Visit 09:56:58 CDT CPT-33918 Cystoscopy 09:02:42 CDT CPT-95167 Bladder Scan 09:02:42 CDT CPT-70194 Abd single AP View 16:00:35 CDT CPT-22746 Administration single or combination vaccine inc oral 10 :15:43 CDT CPT-63134 Influenza split virus > age 3 10:15:43 CDT CPT-44915 Nail Avulsion 09:24:57 CDT CPT-OV Office Visit 11:15:41 CDT CPT-42705 Abx/Therapy Injection 10:51:30 CDT CPT-J3301 Kenalog 40 mg (Triamcinolone Acetonide) 10:25:12 CDT CPT-J1100 Decadron 4mg (Dexamethasone) 10:25:12 CDT CPT-75387 Anoscopy diagnostic 10:36:12 CDT CPT-OV Office Visit 15:34:31 CDT CPT-39825 Abx/Therapy Injection 08:21:15 CASE AIDE CPT-J1885 Toradol 60 mg (Ketorolac) 10:46:35 CASE AIDE CPT-OV Office Visit 19:51:16 CASE AIDE CPT-20815 Spec Collection and Handling Fee 14:34:18 CASE AIDE CPT-PV Prev. Care Visit 14:19:18 CASE AIDE CPT-08738 Postop F/U Visit 14:47:51 CASE AIDE CPT-73964 Postop F/U Visit 15:15:14 CASE AIDE CPT-54982 Postop F/U Visit 14:41:43 CDT CPT-27079 Postop F/U Visit 15:47:46 CDT CPT-OV Office Visit 15:27:23 CDT CPT-OV Office Visit 17:20:34 CDT CPT-11707 Abx/Therapy Injection 15:05:57 CDT CPT-J1100 Decadron 8mg (Dexamethasone) 14:44:57 CDT CPT-J1040 Depo Medrol 80 mg (Methyl Prednisolone Acetate) 14:44: 57 CDT CPT-JTINJ Joint Injection 10:17:37 CDT CPT-89007 Administration 2+ single or combination vaccines inc oral 13:01:46 CASE AIDE CPT-00636 Administration single or combination vaccine inc oral 13 :01:46 CASE AIDE CPT-06279 Pneumovax 13:01:46 CASE AIDE CPT-32518 Influenza split virus > age 3 13:01:46 CASE AIDE CPT-83264 Administration single or combination vaccine inc oral 08 :56:49 CDT CPT-18668 Tdap 08:56:49 CDT
--- OUTSIDE RECORDS SUMMARY | 2017-03-21 20:38 | XMS REPORT | Clinical Summary ---
Author Author Admin, E Organization [employer] [facility] Address Unknown Phone Unavailable Allergies, Adverse Reactions, Alerts Allergy Name Reaction Description Start Date Severity Status Provider VALENTIN Critical Active Rodrigo Montemayorl BEAM BUILDER HELPER CHLORHEXIDINE GLUCONATE tongue and gums swollen Critical Active Hoa Kabaford RMA NORFLEX Rash Critical Active Silvestrellina Frazell BEAM BUILDER HELPER TRAZODONE HCL sees things Critical Active Dewayne [...] unspecified hyperlipidemia ABDOMINAL PAIN 789.00 Resolved Yolande Lindsya MD PhD Abdominal pain, unspecified site PLANTAR [...] MD Lumbago Cough 786.2 Active Jillina Tyrel BE[employer] BUILDER HELPER Cough 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..] Flank pain, left 789.09 Active Jillina Frazell BEAM BUILDER HELPER Abdominal pain, other specified site; multiple sites Abdominal pain, generalized 789.07 Active Jillina Farshadzell BEAM BUILDER HELPER Abdominal pain, generalized Back pain, thoracic region, left 724.1 Active Jillina Frazell BEAM BUILDER HELPER Pain in thoracic spine Abdominal pain, left [...] Sykes Malignant neoplasm of kidney, except pelvis FOOT PAIN, RIGHT ICD-729.5 Inactive Yolande Lindsay [...] every 6 hrs prn pain TRAMADOL HCL 41322749816 Active Gab Padron MD Active PREDNISONE 20 MG TAB 2 tabs daily for 3 days, 1 tab daily for 3 days, 1/2 tab daily for 2 days PREDNISONE 37235054021 No Longer Active Gab Padron MD Active ZOFRAN ODT 4 MG TBDP 1 po q6hr PRN Nausea ONDANSETRON 19852603386 Active Gab Padron MD Active IBUPROFEN 600 MG TAB 1 tablet by mouth every 6 hours for 7 days, then 1 tablet every 6 hours as needed. Take with food IBUPROFEN 58408010298 Active Jillina Frazell BEAM BUILDER HELPER Active BACTRIM DS 800-160 MG TAB 1 tab by mouth twice daily TRIMETHOPRIM-SULFAMETHOXAZOLE 22038039664 No Longer Active Gab Padron MD Active ADVAIR DISKUS 250-50 MCG/DOSE AEPB 1 puff BID FLUTICASONE- SALMETEROL 22707713440 Active Silvestrellnacho Sarah APRN Active LEVOTHYROXINE SODIUM 75 MCG TABS Take 1 tab daily LEVOTHYROXINE SODIUM 70630707101 No Longer Active Mariana Medellinelise [facility] Active SYNTHROID 88 MCG ORAL TABS Take one by mouth daily LEVOTHYROXINE SODIUM 36142340026 Active Gab Padron MD Active CHERATUSSIN AC 100-10 MG/5ML SYRP 1 tsp by mouth every 4 hours as needed for cough GUAIFENESIN-CODEINE 33808751623 No Longer Active Gab Padron MD Active POLYTRIM 35129-4.1 UNIT/ML-% SOLN 1 gtt to affected eye q3h x 7 days POLYMYXIN B-TRIMETHOPRIM 03329183661 No Longer Active Gab Padron MD Active FLUTICASONE PROPIONATE 50 MCG/ACT SUSP 1 to 2 sprays each nostril daily 04/21 FLUTICASONE PROPIONATE 39420278221 No Longer Active Gab Padron MD Active TRILEPTAL 600 MG TABS Take one 1 tablet in Am and 1 tablet at night OXCARBAZEPINE 03498536313 Active Gab Padron MD Active CEFDINIR 300 MG CAPS 1 po BID x 10 days CEFDINIR 22690358873 No Longer Active Rodrigo Sarah APRN Active CEFTIN 500 MG TAB 1 twice a day CEFUROXIME AXETIL 95907732025 No Longer Active Gab Padron MD Active AZITHROMYCIN 250 MG TABS 2 po qd x 1 day, then 1 po qd x 4 days AZITHROMYCIN 98174218290 No Longer Active Rodrigo Sarah APRN Active CLARITIN 10 MG TAB 1 tablet by mouth daily as needed for allergies LORATADINE 24583620825 Active Rodrigo Sarah APRN Active OXYCODONE HCL 5 MG ORAL CAPS 1 TAB PO Q HS OXYCODONE HCL 26500573585 No Longer Active Rodrigo Sarah APRN Active NIASPAN 500 MG ORAL CR-TABS 1 pill nightly x 1 week, then 2 pills nightly x 1 week, then 3 pills nightly x 1 week, then 4 pills nightly NIACIN (ANTIHYPERLIPIDEMIC) 10075290439 No Longer Active Rodrigo Sarah APRN Active NIACIN 500 MG TABS 1 pill by mouth nightly x 1 week, then 2 pills x 1 week, then 3 pills x 1 week, then 4 pills nightly - take after evening meal, with applesauce or an apple NIACIN 37284814942 No Longer Active Yolande Lindsay MD PhD Active FISH OIL 1000 MG CAPS 3 pills daily OMEGA-3 FATTY ACIDS 46654647874 Active Yolande Lindsay MD PhD Active TRIAMCINOLONE ACETONIDE 0.1 % CREA apply bid sparingly to rash TRIAMCINOLONE ACETONIDE 87688726399 Active Yolande Lindsay MD PhD Active FUROSEMIDE 20 MG TAB 1 tablet by mouth daily FUROSEMIDE 95147035890 Active Tisha Lambert APRN Active LISINOPRIL 20 MG ORAL TABS 1 tab by mouth daily LISINOPRIL 25911895036 Active Tisha Fausto BE[employer] BUILDER HELPER Active FUROSEMIDE 20 MG TABS 1 pill by mouth daily, for edema FUROSEMIDE 65903534480 No Longer Active Yolande Lindsay MD PhD Active ATORVASTATIN CALCIUM 10 MG TABS 1 pill by mouth daily, for cholesterol 09/06 ATORVASTATIN CALCIUM 44818978957 Active Gab Padron MD Active CALCIUM 600+D PLUS MINERALS 600-400 MG-UNIT ORAL CHEW 1 tab by mouth daily CALCIUM CARBONATE-VIT D-MIN 15923064229 No Longer Active Yolande Lindsay MD PhD Active CYCLOBENZAPRINE HCL 10 MG TABS 1 tablet by mouth three times daily as needed for muscle spasm/pain CYCLOBENZAPRINE HCL 52125394400 Active Yolande Lindsay MD PhD Active ONDANSETRON 4 MG TBDP 1 q4h PRN nausea ONDANSETRON 64953161320 Active Yolande Lindsay MD PhD Active ADULT ASPIRIN EC LOW STRENGTH 81 MG TBEC Take 1 tablet by mouth daily 2014 ASPIRIN 08625411338 No Longer Active Yolande Lindsay MD PhD Active ZOFRAN ODT 4 MG TBDP 1 pill dissolved by mouth every 4 hours if needed for nausea ONDANSETRON 24126102430 No Longer Active Yolande Lindsay MD PhD Active CEFTIN 500 MG TAB 1 twice a day CEFUROXIME AXETIL 50457940411 No Longer Active Yolande Lindsay MD PhD Active ALBUTEROL SULFATE 0.083 % [facility] SOLN one vial per nebulizer every 4-6 hours as needed ALBUTEROL SULFATE 27792739448 No Longer Active Alexis Ordaz MD Active DOXYCYCLINE HYCLATE 100 MG CAP 1 cap by mouth twice daily DOXYCYCLINE HYCLATE 43823935999 No Longer Active Yolande Lindsay MD PhD Active CYCLOBENZAPRINE HCL 10 MG TABS 1/2 - 1 tab by mouth three times daily if needed for spasms/pain CYCLOBENZAPRINE HCL 17431443072 No Longer Active Yolande Lindsay MD PhD Active AZITHROMYCIN 250 MG TABS 2 pills on day 1, then 1 pill daily x 4 days AZITHROMYCIN 50569375783 No Longer Active Yolande Lindsay MD PhD Active XOPENEX 1.25 MG/3ML NEBU 1 neb every 4 hours if needed for cough/congestion LEVALBUTEROL HCL 36416451966 No Longer Active Yolande Lindsay MD PhD Active DOXYCYCLINE HYCLATE 100 MG TAB 1 tab twice a day for 14 days 2013 DOXYCYCLINE HYCLATE 60571341357 No Longer Active Yolande Lindsay MD PhD Active PREVACID 30 MG CPDR Take 1 tablet by mouth daily-PRN LANSOPRAZOLE 03032949321 No Longer Active Yolande Lindsay MD PhD Active PA VITAMIN D-3 2000 UNIT CAPS 1 CAP PO DAILY CHOLECALCIFEROL 13938058012 No Longer Active Yolande Lindsay MD PhD Active CEFDINIR 300 MG CAPS by mouth twice a day CEFDINIR 60831861788 No Longer Active Gab Padron MD Active TOPAMAX 50 MG TABS 1 PO twice daily TOPIRAMATE 61785834554 Active Yolande Lindsay MD PhD Active AZITHROMYCIN 250 MG TABS 2 po qd x 1 day, then 1 po qd x 4 days AZITHROMYCIN 49890337307 No Longer Active Yolande Lindsay MD PhD Active DICLOFENAC SODIUM 75 MG TBEC 1 tablet by q 12 hours PRN headaches DICLOFENAC SODIUM 70956169695 No Longer Active Yolande Lindsay MD PhD Active FLONASE 50 MCG/ACT SUSP 1 spray each nostril am and hs FLUTICASONE PROPIONATE 03379619711 No Longer Active Todd Callaway MD Active ANUSOL-HC 25 MG SUPPOSITORY 1 rectally twice a day as needed for hemorrhoids HYDROCORTISONE JAYDEN (RECTAL) 42777302033 No Longer Active Yolande Lindsay MD PhD Active ANUSOL-HC 25 MG SUPPOSITORY 1 suppository rectally each evening as needed for anal fissure HYDROCORTISONE JAYDEN (RECTAL) 17057482681 No Longer Active Bozena Coleman EDELMIRAFeliciano Active VALIUM 5 MG TAB 1 po 30 minutes prior to your MRI DIAZEPAM 23176888247 No Longer Active LONNIE Iglesias Active METHOCARBAMOL 750 MG TABS 1 PO QID PRN METHOCARBAMOL 09652969545 No Longer Active Daphne Wetzel BEAM BUILDER HELPER Active NITROSTAT 0.4 MG SUBL as directed NITROGLYCERIN 90848583529 No Longer Active Rodrigo Sarah BEAM BUILDER HELPER Active ROBAXIN-750 750 MG TABS 2 four times a day for 3 days as needed for muscle spasm, then 1 four times a day as needed METHOCARBAMOL 78610310670 No Longer Active Rodrigo Sarah APRN Active HYDROCODONE-ACETAMINOPHEN 5-325 MG TABS 1 q 4-6 hrs prn HYDROCODONE-ACETAMINOPHEN 46191353103 No Longer Active Jillnacho Sarah APRN Active VERAPAMIL HCL CR 180 MG CR-TABS TAKE 1 TAB DAILY VERAPAMIL HCL 51793966067 No Longer Active Yolande Lindsay MD PhD Active BACTRIM DS 800-160 MG TAB 1 tab by mouth twice daily TRIMETHOPRIM-SULFAMETHOXAZOLE 64759499194 No Longer Active Yolande Lindsay MD PhD Active NEXIUM 40 MG PACK 1 by mouth daily ESOMEPRAZOLE MAGNESIUM 46402060683 No Longer Active Des Hines MD Active EPIPEN 2-CHARLETTE 0.3 MG/0.3ML OMARI as need for allergic reaction EPINEPHRINE 43018942705 Active Yolande Lindsay MD PhD Active NEXIUM 40 MG CPDR 1 PO Q D DAY ESOMEPRAZOLE MAGNESIUM 19658183375 No Longer Active Sadia Perry RN Active NEXIUM 40 MG PACK 1 by mouth daily NEXIUM 40 MG PACK ESOMEPRAZOLE MAGNESIUM Inactive VERAPAMIL HCL CR 180 MG CR-TABS TAKE 1 TAB DAILY VERAPAMIL HCL CR 180 MG CR-TABS VERAPAMIL HCL Inactive HYDROCODONE-ACETAMINOPHEN 5-325 MG TABS 1 q 4-6 hrs prn HYDROCODONE-ACETAMINOPHEN 5-325 MG TABS 688410 HYDROCODONE-ACETAMINOPHEN Inactive ROBAXIN-750 750 MG TABS 2 four times a day for 3 days as needed for muscle spasm, then 1 four times a day as needed ROBAXIN-750 750 MG TABS 636231 METHOCARBAMOL Inactive NITROSTAT 0.4 MG SUBL as directed NITROSTAT 0.4 MG SUBL 989370 NITROGLYCERIN Inactive METHOCARBAMOL 750 MG TABS 1 PO QID PRN METHOCARBAMOL 750 MG TABS 257268 METHOCARBAMOL Inactive VALIUM 5 MG TAB 1 po 30 minutes prior to your MRI VALIUM 5 MG TAB 022118 DIAZEPAM Inactive ANUSOL-HC 25 MG SUPPOSITORY 1 suppository rectally each evening as needed for anal fissure ANUSOL-HC 25 MG SUPPOSITORY 8279584 HYDROCORTISONE JAYDEN (RECTAL) Inactive ANUSOL-HC 25 MG SUPPOSITORY 1 rectally twice a day as needed for hemorrhoids ANUSOL-HC 25 MG SUPPOSITORY 1252215 HYDROCORTISONE JAYDEN (RECTAL) Inactive FLONASE 50 MCG/ACT SUSP 1 spray each nostril am and hs FLONASE 50 MCG/ACT SUSP 2076241 FLUTICASONE PROPIONATE Inactive DICLOFENAC SODIUM 75 MG TBEC 1 tablet by q 12 hours PRN headaches DICLOFENAC SODIUM 75 MG TBEC 453541 DICLOFENAC SODIUM Inactive PA VITAMIN D-3 2000 UNIT CAPS 1 CAP PO DAILY PA VITAMIN D-3 2000 UNIT CAPS CHOLECALCIFEROL Inactive PREVACID 30 MG CPDR Take 1 tablet by mouth daily-PRN PREVACID 30 MG CPDR 142602 LANSOPRAZOLE Inactive DOXYCYCLINE HYCLATE 100 MG TAB 1 tab twice a day for 14 days 2013 DOXYCYCLINE HYCLATE 100 MG TAB 7256032 DOXYCYCLINE HYCLATE Inactive XOPENEX 1.25 MG/3ML NEBU 1 neb every 4 hours if needed for cough/congestion XOPENEX 1.25 MG/3ML NEBU 945276 LEVALBUTEROL HCL Inactive CYCLOBENZAPRINE HCL 10 MG TABS 1/2 - 1 tab by mouth three times daily if needed for spasms/pain CYCLOBENZAPRINE HCL 10 MG TABS 580814 CYCLOBENZAPRINE HCL Inactive ALBUTEROL SULFATE 0.083 % NEBU SOLN one vial per nebulizer every 4-6 hours as needed ALBUTEROL SULFATE 0.083 % NEBU SOLN 375803 ALBUTEROL SULFATE Inactive CEFTIN 500 MG TAB 1 twice a day CEFTIN 500 MG TAB 794289 CEFUROXIME AXETIL Inactive ZOFRAN ODT 4 MG TBDP 1 pill dissolved by mouth every 4 hours if needed for nausea ZOFRAN ODT 4 MG TBDP 592311 ONDANSETRON Inactive ADULT ASPIRIN EC LOW STRENGTH 81 MG TBEC Take 1 tablet by mouth daily 2014 ADULT ASPIRIN EC LOW STRENGTH 81 MG TBEC 254494 ASPIRIN Inactive CALCIUM 600+D PLUS MINERALS 600-400 [...] or an apple NIACIN 500 MG TABS 703332 NIACIN Inactive NIASPAN 500 MG ORAL CR-TABS 1 pill nightly x 1 week, then 2 pills nightly x 1 week, then 3 pills nightly x 1 week, then 4 pills nightly NIASPAN 500 MG ORAL CR-TABS NIACIN (ANTIHYPERLIPIDEMIC) Inactive OXYCODONE HCL 5 MG ORAL CAPS 1 TAB PO Q HS OXYCODONE HCL 5 MG ORAL CAPS 0381309 OXYCODONE HCL Inactive FLUTICASONE PROPIONATE 50 MCG/ACT SUSP 1 to 2 sprays each nostril daily 04/21 FLUTICASONE PROPIONATE 50 MCG/ACT SUSP 9128050 FLUTICASONE PROPIONATE Inactive POLYTRIM 12090-0.1 UNIT/ML-% SOLN 1 gtt to affected eye q3h x 7 days POLYTRIM 15660-1.1 UNIT/ML-% SOLN 389684 POLYMYXIN B- TRIMETHOPRIM Inactive CHERATUSSIN AC 100-10 MG/5ML SYRP 1 tsp by mouth every 4 hours as needed for cough CHERATUSSIN AC 100-10 MG/5ML SYRP 049790 GUAIFENESIN-CODEINE Inactive LEVOTHYROXINE SODIUM 75 MCG TABS Take 1 tab daily LEVOTHYROXINE SODIUM 75 MCG TABS 039859 LEVOTHYROXINE SODIUM Inactive BACTRIM DS 800-160 MG TAB 1 tab by mouth twice daily BACTRIM DS 800-160 MG TAB 014117 TRIMETHOPRIM-SULFAMETHOXAZOLE Inactive AZITHROMYCIN 250 MG TABS 2 po qd x 1 day, then 1 po qd x 4 days AZITHROMYCIN 250 MG TABS 1830070 AZITHROMYCIN Inactive CEFDINIR 300 MG CAPS by mouth twice a day CEFDINIR 300 MG CAPS 023145 CEFDINIR Inactive AZITHROMYCIN 250 MG TABS 2 pills on day 1, then 1 pill daily x 4 days AZITHROMYCIN 250 MG TABS 8202206 AZITHROMYCIN Inactive DOXYCYCLINE HYCLATE 100 MG CAP 1 cap by mouth twice daily DOXYCYCLINE HYCLATE 100 MG CAP 7604751 DOXYCYCLINE HYCLATE Inactive FUROSEMIDE 20 MG TABS 1 pill by mouth daily, for edema FUROSEMIDE 20 MG TABS 254239 FUROSEMIDE Inactive AZITHROMYCIN 250 MG TABS 2 po qd x 1 day, then 1 po qd x 4 days AZITHROMYCIN 250 MG TABS 0136737 AZITHROMYCIN Inactive CEFTIN 500 MG TAB 1 twice a day CEFTIN 500 MG TAB 416643 CEFUROXIME AXETIL Inactive CEFDINIR 300 MG CAPS 1 po BID x 10 days CEFDINIR 300 MG CAPS 372967 CEFDINIR Inactive BACTRIM DS 800-160 MG TAB 1 tab by mouth twice daily BACTRIM DS 800-160 MG TAB 749696 TRIMETHOPRIM-SULFAMETHOXAZOLE Inactive PREDNISONE 20 MG TAB 2 tabs daily for 3 days, 1 tab daily for 3 days, 1/2 tab daily for 2 days PREDNISONE 20 MG TAB 374003 PREDNISONE Inactive Immunizations Vaccine Administration Date Value Standard Description Seasonal influenza vaccine, injectable, containing preservative, for > 3 years old (Afluria, FluLaval, Fluzone, Fluvirin, Fluarix, Agriflu(>=18 yo)) Fluzone (>3 yrs.) [[id number]] Influenza, seasonal, injectable influenza immunization (Flu Vax) has been administered Influenza - Unspecified Formulation [CVX88] influenza virus vaccine, unspecified formulation pneumococcal immunization administered Pneumovax 23 [CVX33] pneumococcal polysaccharide vaccine, 23 valent Seasonal influenza vaccine, injectable, containing preservative, for > 3 years old (Afluria, FluLaval, Fluzone, Fluvirin, Fluarix, Agriflu(>=18 yo)) Fluzone (>3 yrs.) [LIO137] Influenza, seasonal, injectable dT (Diphtheria and Tetanus) booster given given Td(adult) unspecified formulation Boostrix (Tetanus toxoid, reduced diphtheria toxoid and acellular pertussis vaccine, adsorbed), booster Boostrix [YJL647] tetanus toxoid, reduced diphtheria toxoid, and acellular [...] Basic Metabolic Panel - Chemistry calcium, serum 9.1 mg/dL 8.5-10.1 urea nitrogen, blood 18 mg/dL 7-18 creatinine, serum 1.31 mg/dL 0.55-1.30 blood glucose 82 mg/dL 65-110 carbon dioxide, venous blood 25.1 mmol/L 21.0-32.0 chloride, serum 108 mmol/L 98-107 potassium, serum 4.4 mmol/L 3.5-5.2 sodium, serum 142 mmol/L 136-145 Lab Report: Lipid Panel, HEPATIC PANEL - Chemistry cholesterol, serum 166 mg/dL 099-602 0804/12/06 triglyceride, serum, fasting 86 mg/dL 30-200 HDL [...] dipstick Negative Negative sodium, serum 142 mmol/L 893-123 1403/07/18 carbon dioxide, venous blood 27.8 mmol/L 21.0-32.0 [...] nitrite, urine, semiquantitative Negative Negative Office Visit: Follow up hydrodilation - Chemistry [...] negative Encounters Code Encounter Date Provider Facility CPT-61622 Level 3 Est. Patient 15:20:50 CDT Jared Og MD [facility] CPT-36697 Level 3 Est. Patient 17:43:55 [employer] Gab Padron MD [facility] CPT-11485 Level 3 Est. Patient 17:07:49 [employer] Jared Og MD [facility] CPT-90345 Level 4 Est. Patient 19:55:18 [employer] Jared Og MD [facility] CPT-85917 Level 3 Est. Patient 20:13:34 [employer] Jared Og MD [facility] CPT-34131 Level 4 Est. Patient 16:31:27 CDT Gab Padron MD [facility] CPT-88959 Level 2 Est. Patient 12:23:38 CDT Jared Og MD [facility] CPT-26422 Level 3 Est. Patient 11:01:51 CDT Gab Padron MD [facility] CPT-27487 Level 3 Est. Patient 15:27:02 CDT Jared Og MD [facility] CPT-06432 Level 4 Est. Patient 09:25:27 CDT Gab Padron MD [facility]-10202 Level 3 Est. Patient 10:29:41 CDT Rodrigo Sarah [facility]-98068 Level 4 Est. Patient 17:51:05 CDT Gab Padron MD [facility]-66622 Level 3 Est. Patient 14:18:08 CDT Gab Padron MD [facility]-87278 Level 4 Est. Patient 10:18:54 CDT Gab Padron MD [facility]-90123 Level 3 Est. Patient 11:30:07 CDT Rodrigo Sarah [facility]-68354 Level 4 Est. Patient 21:02:30 [employer] Gab Padron MD [facility]-00382 Level 3 Est. Patient 11:02:19 [employer] Gab Padron MD [facility] CPT-32643 Level 4 Est. Patient 22:24:31 [employer] Gab Padron MD [facility]-24411 Level 3 Est. Patient 18:33:46 [employer] Gab Padron MD [facility]-70746 Level 3 Est. Patient 16:19:11 CDT Yolande Lindsay MD [facility] [place]-79381 Level 3 Est. Patient 18:59:14 CDT Yolande Lindsay MD [facility] [place]-51161 Level 4 Est. Patient 21:29:26 CDT Yolande Lindsay MD [facility]-85216 Level 3 Est. Patient 07:37:45 CDT Yolande Lindsay MD [facility]-58958 Level 3 Est. Patient 17:03:46 CDT Yolande Lindsay MD [facility]-37140 Level 4 Est. Patient 20:02:13 [employer] Yolande Lindsay MD [facility] CPT-52148 Level 3 Est. Patient 16:02:07 [employer] Alexis Ordaz MD [facility]-83274 Level 3 Est. Patient 12:41:24 [employer] Yolande Lindsay MD [facility] [place]-32140 Level 3 Est. Patient 15:41:20 [employer] Yolande Lindsay MD [facility] [place]-33643 Level 3 Est. Patient 13:20:02 [employer] Yolande Lindsay MD [facility] [place]-92539 Level 3 Est. Patient 15:00:38 CDT Jared Og MD [facility]-99234 Level 3 Est. Patient 10:22:32 CDT Yolande Lindsay MD [facility] CPT-11496 Level 3 Est. Patient 17:12:58 CDT Yolande Lindsay MD [facility] CPT-11382 Level 4 Est. Patient 13:30:58 CDT Yolande Lindsay MD [facility] [place]-18072 Level 4 New Patient 09:02:42 CDT Jared Og MD [facility]-50951 Level 3 Est. Patient 08:19:07 CDT Yolande Lindsay MD [facility] [place]-40181 Level 3 Est. Patient 12:00:13 [employer] Gab Padron MD [facility]-42777 Level 3 Est. Patient 16:15:23 [employer] Yolande Lindsay MD [facility] [place]-85886 Level 2 Est. Patient 19:47:15 CDT Yolande Lindsay MD [facility] [place]-80259 Level 3 Est. Patient 21:38:31 CDT Yolande Lindsay MD [facility] [place]-46458 Level 3 Est. Patient 10:25:12 CDT Adiel PERAZA [facility]-89333 Level 4 Est. Patient 10:51:58 CDT Yolande Lindsay MD [facility] [place]-83172 Level 3 Est. Patient 14:04:55 [employer] Rodrigo Sarah [facility]-95843 Level 3 Est. Patient 10:46:35 [employer] Rodrigo Sarah [facility] CPT-52633 Level 3 Est. Patient 14:24:37 [employer] Yolande Lindsay MD [facility] [place]-30747 Level 3 Est. Patient 17:41:58 [employer] Yolande Lindsay MD [facility] [place]-51520 Level 2 Est. Patient 22:01:41 [employer] Rodrigo Sarah [facility] CPT-84491 Level 2 Est. Patient 22:01:11 [employer] Rodrigo Sarah [facility] CPT-02131 Level 3 Est. Patient 10:12:29 [employer] Rodrigo Sarah [facility] CPT-55566 Level 3 Est. Patient 11:05:44 CDT Alexis Ordaz MD [facility]-61744 Level 3 Est. Patient 14:57:20 CDT Yolande Lindsay MD [facility] [place]-33288 Level 3 Est. Patient 14:40:57 CDT Yolande Lindsay MD [facility] [place]-24449 Level 3 Est. Patient 20:55:40 CDT Yolande Lindsay MD [facility] [place]-51604 Level 3 Est. Patient 12:42:38 [employer] Yolande Lindsay MD [facility]87587 Level 3 Est. Patient 11:54:49 [employer] Des Hines MD [facility] CPT-33693 Level 3 Est. Patient 17:06:38 CDT Dewayne Pineda PA [facility] Procedures Code Procedure Name Date Entry Date Standard Description CPT-02565 Hip, complete, 2-3 views - XRAY USE ONLY 17:19:04 [employer] CPT-46206 Venipuncture Draw Fee 08:37:59 [employer] CPT-22478 Liver Profile - LAB USE ONLY 08:37:59 [employer] CPT-07735 Lipid - LAB USE ONLY 08:37:58 [employer] CPT-63518 First Vx - Ix admin via ID IM or jet injects without counseling by physician 11:52:31 CDT CPT-43730 Fluzone Preservative Free Intramuscular Suspension 11:52 :31 CDT CPT-74848 Foot, left, comp min 3V - XRAY USE ONLY 09:24:54 CDT CPT-83891 Abd single AP View - XRAY USE ONLY 11:16:17 CDT CPT-60495 T spine AP/ Lat - XRAY USE ONLY 09:34:21 CDT CPT-85170 Chest 2V Frontal and Lat - XRAY USE ONLY 10:48:51 CDT CPT-01612 LS spine comp w obliq 13:28:00 [employer] CPT-J1040 Depo Medrol 80 mg (Methyl Prednisolone Acetate) 10:51: 28 [employer] CPT-J1100 Decadron 8mg (Dexamethasone) 10:51:28 [employer] CPT-20593 Abx/Therapy Injection 10:51:28 [employer] CPT-J1100 Decadron 8mg (Dexamethasone) 21:02:30 [employer] CPT-J1040 Depo Medrol 80 mg (Methyl Prednisolone Acetate) 21:02: 30 [employer] [id number] Event Monitor - MC Transmission 09:12:32 CDT 08/06 [id number] Event Monitor - MC review and interp 09:12:32 CDT [id number] Event Monitor - MC recording 09:12:32 CDT CPT-88400 EKG Trac and Interp 16:50:22 CDT CPT-J1030 Depo Medrol 40 mg (Methyl Prednisolone Acetate) 17:05: 54 CDT CPT-J1100 Decadron 4mg (Dexamethasone) 17:05:54 CDT CPT-06202 Abx/Therapy Injection 17:05:54 CDT CPT-J1100 Decadron 4mg (Dexamethasone) 16:55:28 CDT CPT-J1030 Depo Medrol 40 mg (Methyl Prednisolone Acetate) 16:55: 28 CDT CPT-01432 Ankle Complete - Min 3V 15:58:50 CDT CPT-77788 Knee 3V 15:58:50 CDT CPT-19728 Hip comp min 2V 15:58:50 CDT CPT-J2270 Morphine Sulfate 10 mg 14:25:44 [employer] CPT-J2550 Phenergan 12.5 mg (Promethazine) 14:25:44 [employer] CPT-87005 Abx/Therapy Injection 14:25:44 [employer] CPT-J2550 Phenergan 12.5 mg (Promethazine) 14:08:03 [employer] CPT-J2270 Morphine Sulfate 10 mg 14:08:03 [employer] CPT-35400 Bladder Scan 15:00:38 CDT CPT-TCMM Transitional Care Mgmt-Moderate 09:52:22 CDT CPT-J1030 Depo Medrol 40 mg (Methyl Prednisolone Acetate) 10:55: 18 CDT CPT-J1100 Decadron 4mg (Dexamethasone) 10:55:18 CDT CPT-68756 Abx/Therapy Injection 10:55:18 CDT CPT-J1030 Depo Medrol 40 mg (Methyl Prednisolone Acetate) 10:22: 32 CDT CPT-J1100 Decadron 4mg (Dexamethasone) 10:22:32 CDT CPT-05687 Postop F/U Visit 14:37:13 CDT CPT-67567 Ankle Complete - Min 3V 17:11:58 CDT CPT-98971 Foot comp min 3V 17:11:58 CDT CPT-92572 Bladder Scan 09:56:58 CDT CPT-89990 Postop F/U Visit 09:56:58 CDT CPT-95809 Cystoscopy 09:02:42 CDT CPT-57782 Bladder Scan 09:02:42 CDT CPT-01361 Abd single AP View 16:00:35 CDT CPT-73697 Administration single or combination vaccine inc oral 10 :15:43 CDT CPT-20229 Influenza split virus > age 3 10:15:43 CDT CPT-38908 Nail Avulsion 09:24:57 CDT CPT-OV Office Visit 11:15:41 CDT CPT-96765 Abx/Therapy Injection 10:51:30 CDT CPT-J3301 Kenalog 40 mg (Triamcinolone Acetonide) 10:25:12 CDT CPT-J1100 Decadron 4mg (Dexamethasone) 10:25:12 CDT CPT-34430 Anoscopy diagnostic 10:36:12 CDT CPT-OV Office Visit 15:34:31 CDT CPT-64923 Abx/Therapy Injection 08:21:15 [employer] CPT-J1885 Toradol 60 mg (Ketorolac) 10:46:35 [employer] CPT-OV Office Visit 19:51:16 [employer] CPT-26178 Spec Collection and Handling Fee 14:34:18 [employer] CPT-PV Prev. Care Visit 14:19:18 [employer] CPT-98673 Postop F/U Visit 14:47:51 [employer] CPT-19090 Postop F/U Visit 15:15:14 [employer] CPT-03911 Postop F/U Visit 14:41:43 CDT CPT-65987 Postop F/U Visit 15:47:46 CDT CPT-OV Office Visit 15:27:23 CDT CPT-OV Office Visit 17:20:34 CDT CPT-70802 Abx/Therapy Injection 15:05:57 CDT CPT-J1100 Decadron 8mg (Dexamethasone) 14:44:57 CDT CPT-J1040 Depo Medrol 80 mg (Methyl Prednisolone Acetate) 14:44: 57 CDT CPT-JTINJ Joint Injection 10:17:37 CDT CPT-86049 Administration 2+ single or combination vaccines inc oral 13:01:46 [employer] CPT-81507 Administration single or combination vaccine inc oral 13 :01:46 [employer] CPT-82835 Pneumovax 13:01:46 [employer] CPT-58713 Influenza split virus > age 3 13:01:46 [employer] CPT-90015 Administration single or combination vaccine inc oral 08 :56:49 CDT CPT-87488 Tdap 08:56:49 CDT
--- OUTSIDE RECORDS SUMMARY | 2017-03-21 20:40 | XMS REPORT ---
Author [facility] Medical Staff Organization [facility] Address [address] [place] [id number] Phone [phone] Care Team Providers Care Physician Allergist Immunologist Name Role Phone EVELYN SPEARS MD PP [phone] Summary purpose TRANSITION OF CARE AUTO GENERATION [...]
--- OUTSIDE RECORDS SUMMARY | 2017-03-21 20:40 | XMS REPORT | Clinical Summary ---
Author Author Admin, MARGRET Organization [employer] Address Unknown Phone Unavailable Allergies, Adverse Reactions, Alerts Allergy Name Reaction Description Start Date Severity Status Provider VALENTIN Critical Active Rodrigo Montemayorl OFFAL BALER CHLORHEXIDINE GLUCONATE tongue and gums swollen Critical Active Hoa Kabaford RMA NORFLEX Rash Critical Active Silvestrellina Frazell OFFAL BALER TRAZODONE HCL sees things Critical Active Dewayne [...] infarction, hx of 412 Active Hoa Otto [facility] Old myocardial infarction Pelvic pain 789.09 Active Yolande Lindsay MD PhD Abdominal pain, other specified site; multiple sites Edema 782.3 Active Yolande Lindsay MD PhD Edema Rash 782.1 Active Yolande Lindsay MD PhD Rash and other nonspecific skin eruption Back pain, lumbar 724.2 Active Gab Padron MD Lumbago Cough 786.2 Active Jillina Tyrel OFFAL BALER Cough 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 Jillina Frazellilian OFFAL BALER 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 Anemia 285.9 Active Gab Padron MD Anemia, unspecified Conjunctivitis 372.30 Active Jillina Tyrel OFFAL BALER Conjunctivitis, unspecified Sinusitis 473.9 Active Jillina Frazell OFFAL BALER Unspecified sinusitis (chronic) Nonspecific syndrome suggestive of viral illness 079.99 Active Rodrigo Sarah APRN Unspecified viral infection Laryngitis 464.00 Active Rodrigo Sarah APRN Acute laryngitis without mention of obstruction ANKLE PAIN, RIGHT ICD-719.47 Inactive Yolande Lindsay MD PhD EDEMA, LIMB ICD-782.3 Inactive Yolande Lindsay MD PhD ABDOMINAL PAIN ICD-789.00 Inactive Yolande Lindsay MD PhD PLANTAR FASCIITIS ICD-728.71 Inactive Yolande Lindsay MD PhD UTI ICD-599.0 Inactive Yolande Lindsay MD PhD OTHER SCREENING MAMMOGRAM ICD-V76.12 Inactive Yolande Lindsay MD PhD KNEE PAIN ICD-719.46 Inactive Yolande Lindsay MD PhD FOOT PAIN, RIGHT ICD-729.5 Inactive Yolande Lindsay MD PhD BACK PAIN ICD-724.5 Inactive Yolande Lindsay MD PhD AFTERCARE FOLLOW SURGERY MUSCULOSKEL SYSTEM NEC ICD-V58.78 02/06 Inactive Todd Callaway MD FREQUENCY, URINARY ICD-788.41 Inactive Yolande Lindsay MD PhD AFTERCARE FLW SURG TEETH ORL CAV&DIGESTV SYS NEC ICD-V58.75 04/25 Inactive Yolande Lindsay MD PhD ALLERGIC REACTION, ACUTE ICD-995.3 Inactive Alexis Ordaz MD ROUTINE GYNECOLOGICAL EXAMINATION ICD-V72.31 Inactive Yolande [...] bite ICD-989.5 Inactive Yolande Lindsay MD PhD Muscle spasm, back ICD-724.8 Inactive Yolande Lindsay MD PhD Sinusitis, acute ICD-461.9 Inactive Yolande Lindsya MD PhD 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 Inactive Yolande Lindsay MD PhD URI ICD-465.9 Inactive Yolande Lindsay MD PhD Abdominal pain, LLQ ICD-789.04 Inactive Yolande Lindsay MD PhD Accidental fall ICD-E888.9 Inactive Yolande Lindsay MD PhD Flank pain ICD-789.09 Inactive Yolande Lindsay MD PhD Sinusitis ICD-461.9 Inactive Yolande Lindsay MD PhD Hip pain, left ICD-719.45 Inactive Yolande Lindsay MD PhD Knee sprain, left ICD-844.9 Inactive Yolande Lindsay MD PhD Ankle sprain, left ICD-845.00 Inactive Yolande Lindsay MD PhD Medication List Medication Instructions Start Date Stop Date Generic Name NDC Status Provider Patient Instruction ADVAIR DISKUS 250-50 MCG/DOSE AEPB 1 puff BID FLUTICASONE- SALMETEROL 29473833735 Active Rodrigo Sarah OFFAL BALER Active LEVOTHYROXINE SODIUM 75 MCG TABS Take 1 tab daily LEVOTHYROXINE SODIUM 66960465109 No Longer Active Mariana Cuadra RMA Active SYNTHROID 88 MCG ORAL TABS Take one by mouth daily LEVOTHYROXINE SODIUM 74992199478 Active Mariana Goisaiaher RMA Active CHERATUSSIN AC 100-10 MG/5ML SYRP 1 tsp by mouth every 4 hours as needed for cough GUAIFENESIN-CODEINE 04688394315 No Longer Active Gab Padron MD Active POLYTRIM 60218-6.1 UNIT/ML-% SOLN 1 gtt to affected eye q3h x 7 days POLYMYXIN B-TRIMETHOPRIM 95212027215 No Longer Active Gab Padron MD Active FLUTICASONE PROPIONATE 50 MCG/ACT SUSP 1 to 2 sprays each nostril daily 04/21 FLUTICASONE PROPIONATE 06009285104 No Longer Active Gab Padron MD Active TRILEPTAL 600 MG TABS Take one 1 tablet in Am and 1 tablet at night OXCARBAZEPINE 58688831121 Active Gab Padron MD Active CEFDINIR 300 MG CAPS 1 po BID x 10 days CEFDINIR 41324329354 No Longer Active Rodrigo Sarah APRN Active CEFTIN 500 MG TAB 1 twice a day CEFUROXIME AXETIL 00312296997 No Longer Active Gab Padron MD Active AZITHROMYCIN 250 MG TABS 2 po qd x 1 day, then 1 po qd x 4 days AZITHROMYCIN 90965445886 No Longer Active Rodrigo Sarah APRN Active CLARITIN 10 MG TAB 1 tablet by mouth daily as needed for allergies LORATADINE 02599164231 Active Silvestrellnacho Sarah APRN Active OXYCODONE HCL 5 MG ORAL CAPS 1 TAB PO Q HS OXYCODONE HCL 86137855149 No Longer Active Rodrigo Sarah APRN Active NIASPAN 500 MG ORAL CR-TABS 1 pill nightly x 1 week, then 2 pills nightly x 1 week, then 3 pills nightly x 1 week, then 4 pills nightly NIACIN (ANTIHYPERLIPIDEMIC) 42375320713 No Longer Active Rodrigo Sarah APRN Active NIACIN 500 MG TABS 1 pill by mouth nightly x 1 week, then 2 pills x 1 week, then 3 pills x 1 week, then 4 pills nightly - take after evening meal, with applesauce or an apple NIACIN 12436641487 No Longer Active Yolande Lindsay MD PhD Active FISH OIL 1000 MG CAPS 3 pills daily OMEGA-3 FATTY ACIDS 18473924370 Active Yolande Lindsay MD PhD Active TRIAMCINOLONE ACETONIDE 0.1 % CREA apply bid sparingly to rash TRIAMCINOLONE ACETONIDE 91727780227 Active Yolande Lindsay MD PhD Active FUROSEMIDE 20 MG TAB 1 tablet by mouth daily FUROSEMIDE 01444083541 Active Yolande Lindsay MD PhD Active LISINOPRIL 20 MG ORAL TABS 1 tab by mouth daily LISINOPRIL 75008257697 Active Gab Padron MD Active FUROSEMIDE 20 MG TABS 1 pill by mouth daily, for edema FUROSEMIDE 01002212951 No Longer Active Yolande Lindsay MD PhD Active ATORVASTATIN CALCIUM 10 MG TABS 1 pill by mouth daily, for cholesterol 09/06 ATORVASTATIN CALCIUM 87937273931 Active Yolande Lindsay MD PhD Active CALCIUM 600+D PLUS MINERALS 600-400 MG-UNIT ORAL CHEW 1 tab by mouth daily CALCIUM CARBONATE-VIT D-MIN 04129829781 No Longer Active Yolande Lindsay MD PhD Active CYCLOBENZAPRINE HCL 10 MG TABS 1 tablet by mouth three times daily as needed for muscle spasm/pain CYCLOBENZAPRINE HCL 33387320905 Active Yolande Lindsay MD PhD Active ONDANSETRON 4 MG TBDP 1 q4h PRN nausea ONDANSETRON 30216716757 Active Yolande Lindsay MD PhD Active ADULT ASPIRIN EC LOW STRENGTH 81 MG TBEC Take 1 tablet by mouth daily 2014 ASPIRIN 03180343677 No Longer Active Yolande Lindsay MD PhD Active ZOFRAN ODT 4 MG TBDP 1 pill dissolved by mouth every 4 hours if needed for nausea ONDANSETRON 97682679674 No Longer Active Yolande Lindsay MD PhD Active CEFTIN 500 MG TAB 1 twice a day CEFUROXIME AXETIL 67422644270 No Longer Active Yolande Lindsay MD PhD Active ALBUTEROL SULFATE 0.083 % NEBU SOLN one vial per nebulizer every 4-6 hours as needed ALBUTEROL SULFATE 03117822744 No Longer Active Alexis Ordaz MD Active DOXYCYCLINE HYCLATE 100 MG CAP 1 cap by mouth twice daily DOXYCYCLINE HYCLATE 48165378241 No Longer Active Yolande Lindsay MD PhD Active CYCLOBENZAPRINE HCL 10 MG TABS 1/2 - 1 tab by mouth three times daily if needed for spasms/pain CYCLOBENZAPRINE HCL 20327838029 No Longer Active Yolande Lindsay MD PhD Active AZITHROMYCIN 250 MG TABS 2 pills on day 1, then 1 pill daily x 4 days AZITHROMYCIN 36060939103 No Longer Active Yolande Lindsay MD PhD Active XOPENEX 1.25 MG/3ML NEBU 1 neb every 4 hours if needed for cough/congestion LEVALBUTEROL HCL 40329164977 No Longer Active Yolande Lindsay MD PhD Active DOXYCYCLINE HYCLATE 100 MG TAB 1 tab twice a day for 14 days 2013 DOXYCYCLINE HYCLATE 30404469996 No Longer Active Yolande Lindsay MD PhD Active PREVACID 30 MG CPDR Take 1 tablet by mouth daily-PRN LANSOPRAZOLE 68527357723 No Longer Active Yolande Lindsay MD PhD Active PA VITAMIN D-3 2000 UNIT CAPS 1 CAP PO DAILY CHOLECALCIFEROL 65448447188 No Longer Active Yolande Lindsay MD PhD Active CEFDINIR 300 MG CAPS by mouth twice a day CEFDINIR 55333374505 No Longer Active Gab Padron MD Active TOPAMAX 50 MG TABS 1 PO twice daily TOPIRAMATE 24942499266 Active Yolande Lindsay MD PhD Active AZITHROMYCIN 250 MG TABS 2 po qd x 1 day, then 1 po qd x 4 days AZITHROMYCIN 36937726814 No Longer Active Yolande Lindsay MD PhD Active DICLOFENAC SODIUM 75 MG TBEC 1 tablet by q 12 hours PRN headaches DICLOFENAC SODIUM 14414702289 No Longer Active Yolande Lindsay MD PhD Active FLONASE 50 MCG/ACT SUSP 1 spray each nostril am and hs FLUTICASONE PROPIONATE 87714120449 No Longer Active Todd Callaway MD Active ANUSOL-HC 25 MG SUPPOSITORY 1 rectally twice a day as needed for hemorrhoids HYDROCORTISONE JAYDEN (RECTAL) 16991911382 No Longer Active Yolande Lindsay MD PhD Active ANUSOL-HC 25 MG SUPPOSITORY 1 suppository rectally each evening as needed for anal fissure HYDROCORTISONE JAYDEN (RECTAL) 66753683576 No Longer Active LONNIE Iglesias Active VALIUM 5 MG TAB 1 po 30 minutes prior to your MRI DIAZEPAM 76858566656 No Longer Active LONNIE Iglesias Active METHOCARBAMOL 750 MG TABS 1 PO QID PRN METHOCARBAMOL 94013120517 No Longer Active Daphne Wetzel APRN Active NITROSTAT 0.4 MG SUBL as directed NITROGLYCERIN 86044491605 No Longer Active Rodrigo Sarah APRN Active ROBAXIN-750 750 MG TABS 2 four times a day for 3 days as needed for muscle spasm, then 1 four times a day as needed METHOCARBAMOL 55222966980 No Longer Active Rodrigo Sarah APRN Active HYDROCODONE-ACETAMINOPHEN 5-325 MG TABS 1 q 4-6 hrs prn HYDROCODONE-ACETAMINOPHEN 87895165028 No Longer Active Rodrigo Sarah APRN Active VERAPAMIL HCL CR 180 MG CR-TABS TAKE 1 TAB DAILY VERAPAMIL HCL 46444747770 No Longer Active Yolande Lindsay MD PhD Active BACTRIM DS 800-160 MG TAB 1 tab by mouth twice daily TRIMETHOPRIM-SULFAMETHOXAZOLE 48102999377 No Longer Active Yolande Lindsay MD PhD Active NEXIUM 40 MG PACK 1 by mouth daily ESOMEPRAZOLE MAGNESIUM 74928468541 No Longer Active Des Hines MD Active EPIPEN 2-CHARLETTE 0.3 MG/0.3ML OMARI as need for allergic reaction EPINEPHRINE 06063804953 Active Yolande Lindsay MD PhD Active NEXIUM 40 MG CPDR 1 PO Q D DAY ESOMEPRAZOLE MAGNESIUM 20377652555 No Longer Active Sadia Perry RN Active NEXIUM 40 MG PACK 1 by mouth daily NEXIUM 40 MG PACK ESOMEPRAZOLE MAGNESIUM Inactive VERAPAMIL HCL CR 180 MG CR-TABS TAKE 1 TAB DAILY VERAPAMIL HCL CR 180 MG CR-TABS VERAPAMIL HCL Inactive HYDROCODONE-ACETAMINOPHEN 5-325 MG TABS 1 q 4-6 hrs prn HYDROCODONE-ACETAMINOPHEN 5-325 MG TABS 373756 HYDROCODONE-ACETAMINOPHEN Inactive ROBAXIN-750 750 MG TABS 2 four times a day for 3 days as needed for muscle spasm, then 1 four times a day as needed ROBAXIN-750 750 MG TABS 631633 METHOCARBAMOL Inactive NITROSTAT 0.4 MG SUBL as directed NITROSTAT 0.4 MG SUBL NITROGLYCERIN Inactive METHOCARBAMOL 750 MG TABS 1 PO QID PRN METHOCARBAMOL 750 MG TABS 906258 METHOCARBAMOL Inactive VALIUM 5 MG TAB 1 po 30 minutes prior to your MRI VALIUM 5 MG TAB 335572 DIAZEPAM Inactive ANUSOL-HC 25 MG SUPPOSITORY 1 suppository rectally each evening as needed for anal fissure ANUSOL-HC 25 MG SUPPOSITORY 0198563 HYDROCORTISONE JAYDEN (RECTAL) Inactive ANUSOL-HC 25 MG SUPPOSITORY 1 rectally twice a day as needed for hemorrhoids ANUSOL-HC 25 MG SUPPOSITORY 3714917 HYDROCORTISONE JAYDEN (RECTAL) Inactive FLONASE 50 MCG/ACT SUSP 1 spray each nostril am and hs FLONASE 50 MCG/ACT SUSP FLUTICASONE PROPIONATE Inactive DICLOFENAC SODIUM 75 MG TBEC 1 tablet by q 12 hours PRN headaches DICLOFENAC SODIUM 75 MG TBEC 599166 DICLOFENAC SODIUM Inactive PA VITAMIN D-3 2000 UNIT CAPS 1 CAP PO DAILY PA VITAMIN D-3 2000 UNIT CAPS CHOLECALCIFEROL Inactive PREVACID 30 MG CPDR Take 1 tablet by mouth daily-PRN PREVACID 30 MG CPDR 838096 LANSOPRAZOLE Inactive DOXYCYCLINE HYCLATE 100 MG TAB 1 tab twice a day for 14 days 2013 DOXYCYCLINE HYCLATE 100 MG TAB 4364296 DOXYCYCLINE HYCLATE Inactive XOPENEX 1.25 MG/3ML NEBU 1 neb every 4 hours if needed for cough/congestion XOPENEX 1.25 MG/3ML NEBU 268030 LEVALBUTEROL HCL Inactive CYCLOBENZAPRINE HCL 10 MG TABS 1/2 - 1 tab by mouth three times daily if needed for spasms/pain CYCLOBENZAPRINE HCL 10 MG TABS 102343 CYCLOBENZAPRINE HCL Inactive ALBUTEROL SULFATE 0.083 % NEBU SOLN one vial per nebulizer every 4-6 hours as needed ALBUTEROL SULFATE 0.083 % NEBU SOLN 154993 ALBUTEROL SULFATE Inactive CEFTIN 500 MG TAB 1 twice a day CEFTIN 500 MG TAB 189086 CEFUROXIME AXETIL Inactive ZOFRAN ODT 4 MG TBDP 1 pill dissolved by mouth every 4 hours if needed for nausea ZOFRAN ODT 4 MG TBDP 815916 ONDANSETRON Inactive ADULT ASPIRIN EC LOW STRENGTH 81 MG TBEC Take 1 tablet by mouth daily 2014 ADULT ASPIRIN EC LOW STRENGTH 81 MG TBEC 393362 ASPIRIN Inactive CALCIUM 600+D PLUS MINERALS 600-400 [...] or an apple NIACIN 500 MG TABS 630469 NIACIN Inactive NIASPAN 500 MG ORAL CR-TABS 1 pill nightly x 1 week, then 2 pills nightly x 1 week, then 3 pills nightly x 1 week, then 4 pills nightly NIASPAN 500 MG ORAL CR-TABS NIACIN (ANTIHYPERLIPIDEMIC) Inactive OXYCODONE HCL 5 MG ORAL CAPS 1 TAB PO Q HS OXYCODONE HCL 5 MG ORAL CAPS 9905799 OXYCODONE HCL Inactive FLUTICASONE PROPIONATE 50 MCG/ACT SUSP 1 to 2 sprays each nostril daily 04/21 FLUTICASONE PROPIONATE 50 MCG/ACT SUSP 628435 FLUTICASONE PROPIONATE Inactive POLYTRIM 88656-5.1 UNIT/ML-% SOLN 1 gtt to affected eye q3h x 7 days POLYTRIM 82438-9.1 UNIT/ML-% SOLN 979494 POLYMYXIN B- TRIMETHOPRIM Inactive CHERATUSSIN AC 100-10 MG/5ML SYRP 1 tsp by mouth every 4 hours as needed for cough CHERATUSSIN AC 100-10 MG/5ML SYRP 286488 GUAIFENESIN-CODEINE Inactive LEVOTHYROXINE SODIUM 75 MCG TABS Take 1 tab daily LEVOTHYROXINE SODIUM 75 MCG TABS 240209 LEVOTHYROXINE SODIUM Inactive BACTRIM DS 800-160 MG TAB 1 tab by mouth twice daily BACTRIM DS 800-160 MG TAB 127507 TRIMETHOPRIM-SULFAMETHOXAZOLE Inactive AZITHROMYCIN 250 MG TABS 2 po qd x 1 day, then 1 po qd x 4 days AZITHROMYCIN 250 MG TABS 3662257 AZITHROMYCIN Inactive CEFDINIR 300 MG CAPS by mouth twice a day CEFDINIR 300 MG CAPS 421820 CEFDINIR Inactive AZITHROMYCIN 250 MG TABS 2 pills on day 1, then 1 pill daily x 4 days AZITHROMYCIN 250 MG TABS 1038802 AZITHROMYCIN Inactive DOXYCYCLINE HYCLATE 100 MG CAP 1 cap by mouth twice daily DOXYCYCLINE HYCLATE 100 MG CAP 5555358 DOXYCYCLINE HYCLATE Inactive FUROSEMIDE 20 MG TABS 1 pill by mouth daily, for edema FUROSEMIDE 20 MG TABS 147636 FUROSEMIDE Inactive AZITHROMYCIN 250 MG TABS 2 po qd x 1 day, then 1 po qd x 4 days AZITHROMYCIN 250 MG TABS 4582910 AZITHROMYCIN Inactive CEFTIN 500 MG TAB 1 twice a day CEFTIN 500 MG TAB 159812 CEFUROXIME AXETIL Inactive CEFDINIR 300 MG CAPS 1 po BID x 10 days CEFDINIR 300 MG CAPS 762467 CEFDINIR Inactive Immunizations Vaccine Administration Date Value Standard Description Seasonal influenza vaccine, injectable, containing preservative, for > 3 years old (Afluria, FluLaval, Fluzone, Fluvirin, Fluarix, Agriflu(>=18 yo)) Fluzone (>3 yrs.) [ECP711] Influenza, seasonal, injectable influenza immunization (Flu Vax) has been administered Influenza - Unspecified Formulation [CVX88] influenza virus vaccine, unspecified formulation pneumococcal immunization administered Pneumovax 23 [CVX33] pneumococcal polysaccharide vaccine, 23 valent Seasonal influenza vaccine, injectable, containing preservative, for > 3 years old (Afluria, FluLaval, Fluzone, Fluvirin, Fluarix, Agriflu(>=18 yo)) Fluzone (>3 yrs.) [RKM120] Influenza, seasonal, injectable dT (Diphtheria and Tetanus) booster given given Td(adult) unspecified formulation Boostrix (Tetanus toxoid, reduced diphtheria toxoid and acellular pertussis vaccine, adsorbed), booster Boostrix [KOB126] tetanus toxoid, reduced diphtheria toxoid, and acellular [...] Outside labs entered on flowsheet - Chemistry creatinine, serum 1.38 mg/dL sodium, serum 143 mmol/L potassium, serum 4.2 mmol/L blood glucose 85 mg/dL Chart Maintenance: Outside labs entered on flowsheet - Hematology hemoglobin, blood 11.0 g/dL platelet count 175 10*3/mm3 leukocyte count, blood 6.1 10*3/mm3 Lab Report: Basic Metabolic Panel - Chemistry potassium, serum 3.9 mmol/L 3.5-5.2 chloride, serum 109 mmol/L 98-107 carbon dioxide, venous blood 23.4 mmol/L 21.0-32.0 blood glucose 92 mg/dL 65-110 calcium, serum 8.2 mg/dL 8.5-10.1 urea nitrogen, blood 24 mg/dL 7-18 creatinine, serum 1.30 mg/dL 0.60-1.30 sodium, serum 145 mmol/L 136-145 Lab Report: Cardio IQ Advanced Lipid and Inlammation Panel /55924 - Chemistry cholesterol, serum 198 mg/dL 784-101 9074/09/02 cholesterol, serum 148 mg/dL 710-757 1463/09/02 HDL cholesterol, serum 55 mg/dL > OR=46 triglyceride, serum, fasting 67 mg/dL LDL cholesterol, serum 80 mg/dL cholesterol/HDL ratio, serum 2.7 calc < OR=5.0 HDL cholesterol, serum 65 mg/dL > OR=46 triglyceride, serum, fasting 82 mg/dL LDL cholesterol, serum 117 mg/dL cholesterol/HDL ratio, serum 3.0 calc < OR=5.0 Lab Report: CBC - Hematology erythrocyte (RBC) count 4.03 10^6/MM^3 10*6/mm3 4.04-5.48 hemoglobin, blood 10.7 g/dL 12.0-16.0 hematocrit, blood 33.7 % 36.0-46.0 mean corpuscular volume, RBC 84 fL 80-97 mean corpuscular hemoglobin, RBC 26.5 pg 27.0-31.2 leukocyte count, blood 5.3 10^3/MM^3 10*3/mm3 4.6-10.2 mean corpuscular hemoglobin concentration, RBC 31.6 G/DL [...] (L) - Chemistry sodium, serum 145 mmol/L 905-474 3342/09/02 potassium, serum 4.6 mmol/L 3.5-5.2 chloride, serum [...] Panel, Thyroid Stimulating Hormone (L) - Hematology erythrocyte (RBC) count 3.84 10^6/MM^3 10*6/mm3 4.04-5.48 hemoglobin, blood 11.6 g/dL 12.0-16.0 hematocrit, blood 35.2 % 36.0-46.0 mean corpuscular volume, RBC 91 fL 80-97 mean corpuscular hemoglobin, RBC 30.3 pg 27.0-31.2 leukocyte count, blood 4.7 10^3/MM^3 10*3/mm3 4.6-10.2 mean corpuscular hemoglobin concentration, RBC 33.1 G/DL % 31.8- 35.4 red blood cell distribution width 15.4 % 11.6-14.8 platelet count 166 10^3/MM^3 10*3/mm3 142-424 Lab Report: Comp. Metabolic Panel, Erythrocyte Sed Rate - Chemistry sodium, serum 139 mmol/L 993-721 6838/03/24 carbon dioxide, venous blood 22.4 mmol/L 21.0-32.0 [...] 51 mg/dL 30-200 cholesterol, serum 173 mg/dL 342-127 1645/04/28 HDL cholesterol, serum 63 mg/dL 32-96 LDL cholesterol, serum 100 mg/dL 0-130 Lab Report: Lipid Panel, HEPATIC PANEL, MICROALBUMIN - Chemistry albumin/creatinine ratio, urine < 30 mg/g mg/g{creat} 0-29 bilirubin, serum, total 0.30 mg/dL 0.00-1.00 alanine aminotransferase (SGPT), serum 19 U/L 12-78 aspartate aminotransferase (SGOT), serum 16 U/L 15-37 Lab Report: Lipid Panel, HEPATIC PANEL, MICROALBUMIN [...] mg/dL Encounters Code Encounter Date Provider Facility CPT-48792 Level 3 Est. Patient 11:30:07 CDT Rodrigo Sarah APRN [facility] CPT-88729 Level 4 Est. Patient 21:02:30 SPORTS INTERN Gab Padron MD [facility] CPT-86274 Level 3 Est. Patient 11:02:19 SPORTS INTERN Gab Padron MD [facility] CPT-91981 Level 4 Est. Patient 22:24:31 SPORTS INTERN Gab Padron MD [facility] CPT-78303 Level 3 Est. Patient 18:33:46 SPORTS INTERN Gab Padron MD [facility] CPT-17165 Level 3 Est. Patient 16:19:11 CDT Yolande Lindsay MD PhD [facility] CPT-88342 Level 3 Est. Patient 18:59:14 CDT Yolande Lindsay MD PhD [facility] CPT-16151 Level 4 Est. Patient 21:29:26 CDT Yolande Lindsay MD PhD [facility] CPT-26792 Level 3 Est. Patient 07:37:45 CDT Yolande Lindsay MD PhD [facility] CPT-02337 Level 3 Est. Patient 17:03:46 CDT Yolande Lindsay MD [facility] CPT-26471 Level 4 Est. Patient 20:02:13 SPORTS INTERN Yolande Lindsay MD [facility]-97822 Level 3 Est. Patient 16:02:07 SPORTS INTERN Alexis Ordaz MD [facility]-99401 Level 3 Est. Patient 12:41:24 SPORTS INTERN Yolande Lindsay MD [facility]-96639 Level 3 Est. Patient 15:41:20 SPORTS INTERN Yolande Lindsay MD [facility]-23436 Level 3 Est. Patient 13:20:02 SPORTS INTERN Yolande Lindsay MD [facility]-95250 Level 3 Est. Patient 15:00:38 CDT Jared Og MD [facility]-10524 Level 3 Est. Patient 10:22:32 CDT Yolande Lindsay MD [facility] CPT-13777 Level 3 Est. Patient 17:12:58 CDT Yolande Lindsay MD [facility] CPT-55696 Level 4 Est. Patient 13:30:58 CDT Yolande Lindsay MD [facility] CPT-26265 Level 4 New Patient 09:02:42 CDT Jared Og MD [facility]-27403 Level 3 Est. Patient 08:19:07 CDT Yolande Lindsay MD [facility]-02706 Level 3 Est. Patient 12:00:13 SPORTS INTERN Gab Padron MD [facility]-96870 Level 3 Est. Patient 16:15:23 SPORTS INTERN Yolande Lindsay MD [facility]-53405 Level 2 Est. Patient 19:47:15 CDT Yolande Lindsay MD [facility]-63908 Level 3 Est. Patient 21:38:31 CDT Yolande Lindsay MD [facility]-17758 Level 3 Est. Patient 10:25:12 CDT Adiel Rodríguezozzie PERAZA [facility]-86140 Level 4 Est. Patient 10:51:58 CDT Yolande Lindsay MD [facility]-66238 Level 3 Est. Patient 14:04:55 SPORTS INTERN Rodrigo Sarah [facility]-73960 Level 3 Est. Patient 10:46:35 SPORTS INTERN Rodrigo Sarah [facility]-43003 Level 3 Est. Patient 14:24:37 SPORTS INTERN Yolande Lindsay MD [facility]-40554 Level 3 Est. Patient 17:41:58 SPORTS INTERN Yolande Lindsay MD [facility]-25654 Level 2 Est. Patient 22:01:41 SPORTS INTERN Rodrigo Sarah [facility]-54299 Level 2 Est. Patient 22:01:11 SPORTS INTERN Rodrigo Sarah [facility]-70306 Level 3 Est. Patient 10:12:29 SPORTS INTERN Rodrigo Sarah [facility]-12128 Level 3 Est. Patient 11:05:44 CDT Alexis Ordaz MD [facility]-26568 Level 3 Est. Patient 14:57:20 CDT Yolande Lindsay MD [facility]-33304 Level 3 Est. Patient 14:40:57 CDT Yolande Lindsay MD [facility]-62225 Level 3 Est. Patient 20:55:40 CDT Yolande Lindsay MD PhD [facility] CPT-61651 Level 3 Est. Patient 12:42:38 SPORTS INTERN Yolande Lindsay MD PhD [facility] CPT-82098 Level 3 Est. Patient 11:54:49 SPORTS INTERN Des Hines MD [facility] CPT-56766 Level 3 Est. Patient 17:06:38 CDT Dewayne PERAZA [facility] Procedures Code Procedure Name Date Entry Date Standard Description CPT-52713 LS spine comp w obliq 13:28:00 SPORTS INTERN CPT-J1040 Depo Medrol 80 mg (Methyl Prednisolone Acetate) 10:51: 28 SPORTS INTERN CPT-J1100 Decadron 8mg (Dexamethasone) 10:51:28 SPORTS INTERN CPT-60483 Abx/Therapy Injection 10:51:28 SPORTS INTERN CPT-J1100 Decadron 8mg (Dexamethasone) 21:02:30 SPORTS INTERN CPT-J1040 Depo Medrol 80 mg (Methyl Prednisolone Acetate) 21:02: 30 SPORTS INTERN [id number] Event Monitor - MC Transmission 09:12:32 CDT 08/06 [id number] Event Monitor - MC review and interp 09:12:32 CDT [id number] Event Monitor - MC recording 09:12:32 CDT CPT-21286 EKG Trac and Interp 16:50:22 CDT CPT-J1030 Depo Medrol 40 mg (Methyl Prednisolone Acetate) 17:05: 54 CDT CPT-J1100 Decadron 4mg (Dexamethasone) 17:05:54 CDT CPT-38115 Abx/Therapy Injection 17:05:54 CDT CPT-J1100 Decadron 4mg (Dexamethasone) 16:55:28 CDT CPT-J1030 Depo Medrol 40 mg (Methyl Prednisolone Acetate) 16:55: 28 CDT CPT-59637 Ankle Complete - Min 3V 15:58:50 CDT CPT-25687 Knee 3V 15:58:50 CDT CPT-23107 Hip comp min 2V 15:58:50 CDT CPT-J2270 Morphine Sulfate 10 mg 14:25:44 SPORTS INTERN CPT-J2550 Phenergan 12.5 mg (Promethazine) 14:25:44 SPORTS INTERN CPT-28599 Abx/Therapy Injection 14:25:44 SPORTS INTERN CPT-J2550 Phenergan 12.5 mg (Promethazine) 14:08:03 SPORTS INTERN CPT-J2270 Morphine Sulfate 10 mg 14:08:03 SPORTS INTERN CPT-59088 Bladder Scan 15:00:38 CDT CPT-TCMM Transitional Care Mgmt-Moderate 09:52:22 CDT CPT-J1030 Depo Medrol 40 mg (Methyl Prednisolone Acetate) 10:55: 18 CDT CPT-J1100 Decadron 4mg (Dexamethasone) 10:55:18 CDT CPT-84423 Abx/Therapy Injection 10:55:18 CDT CPT-J1030 Depo Medrol 40 mg (Methyl Prednisolone Acetate) 10:22: 32 CDT CPT-J1100 Decadron 4mg (Dexamethasone) 10:22:32 CDT CPT-81779 Postop F/U Visit 14:37:13 CDT CPT-57105 Ankle Complete - Min 3V 17:11:58 CDT CPT-56977 Foot comp min 3V 17:11:58 CDT CPT-51921 Bladder Scan 09:56:58 CDT CPT-05939 Postop F/U Visit 09:56:58 CDT CPT-95294 Cystoscopy 09:02:42 CDT CPT-74611 Bladder Scan 09:02:42 CDT CPT-02672 Abd single AP View 16:00:35 CDT CPT-47443 Administration single or combination vaccine inc oral 10 :15:43 CDT CPT-73853 Influenza split virus > age 3 10:15:43 CDT CPT-85298 Nail Avulsion 09:24:57 CDT CPT-OV Office Visit 11:15:41 CDT CPT-44746 Abx/Therapy Injection 10:51:30 CDT CPT-J3301 Kenalog 40 mg (Triamcinolone Acetonide) 10:25:12 CDT CPT-J1100 Decadron 4mg (Dexamethasone) 10:25:12 CDT CPT-07893 Anoscopy diagnostic 10:36:12 CDT CPT-OV Office Visit 15:34:31 CDT CPT-22700 Abx/Therapy Injection 08:21:15 [employer]TS INTERN CPT-J1885 Toradol 60 mg (Ketorolac) 10:46:35 [employer]TS INTERN CPT-OV Office Visit 19:51:16 SP[facility] INTERN CPT-24800 Spec Collection and Handling Fee 14:34:18 [employer] INTERN CPT-PV Prev. Care Visit 14:19:18 [employer] INTERN CPT-62378 Postop F/U Visit 14:47:51 [employer] INTERN CPT-19614 Postop F/U Visit 15:15:14 [employer]N CPT-50820 Postop F/U Visit 14:41:43 CDT CPT-66171 Postop F/U Visit 15:47:46 CDT CPT-OV Office Visit 15:27:23 CDT CPT-OV Office Visit 17:20:34 CDT CPT-49090 Abx/Therapy Injection 15:05:57 CDT CPT-J1100 Decadron 8mg (Dexamethasone) 14:44:57 CDT CPT-J1040 Depo Medrol 80 mg (Methyl Prednisolone Acetate) 14:44: 57 CDT CPT-JTINJ Joint Injection 10:17:37 CDT CPT-27570 Administration 2+ single or combination vaccines inc oral 13:01:46 [employer] INTERN CPT-82964 Administration single or combination vaccine inc oral 13 :01:46 [employer]TS INTERN CPT-22057 Pneumovax 13:01:46 SPORTS INTERN CPT-78433 Influenza split virus > age 3 13:01:46 SPORTS INTERN CPT-10969 Administration single or combination vaccine inc oral 08 :56:49 CDT CPT-03296 Tdap 08:56:49 CDT
--- OUTSIDE RECORDS SUMMARY | 2017-03-21 20:42 | XMS REPORT | Clinical Summary ---
Author Author Admin, MARGRET Organization [employer] 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 Jillina Frazellilian ZAPATAN 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 Anemia 285.9 Active Gab Padron MD Anemia, unspecified Conjunctivitis 372.30 Active Jillnacho Sarah APRN Conjunctivitis, unspecified Sinusitis 473.9 Active Jillina Frazell [employer] INSTALLER Unspecified sinusitis (chronic) Nonspecific syndrome suggestive of viral illness 079.99 Active Jillina Siml [employer] INST[employer]ER Unspecified viral infection Laryngitis 464.00 Active Jillina Farshadzell [employer] INST[employer]ER Acute laryngitis without mention of obstruction Abdominal [...] Abdominal pain, generalized 789.07 Active Silvestrellina Siml [employer] LINE INSTALLER Abdominal pain, generalized Back pain, thoracic region, left 724.1 Active Jillina Farshadzell [employer] INST[employer]ER Pain in thoracic spine Abdominal pain, left [...] 726.73 Active Gab Padron MD Calcaneal spur ANKLE PAIN, RIGHT ICD-719.47 Inactive Yolande Lindsay [...] PAIN ICD-719.46 Inactive Yolande Lindsay MD PhD FREQUENCY, URINARY ICD-788.41 Inactive Yolande Lindsay MD PhD AFTERCARE FLW SURG TEETH ORL CAV&DIGESTV SYS NEC ICD-V58.75 04/25 Inactive Yolande Lindsay MD PhD AFTERCARE FOLLOW SURGERY MUSCULOSKEL SYSTEM NEC ICD-V58.78 02/06 Inactive Todd Callaway MD ROUTINE GYNECOLOGICAL EXAMINATION ICD-V72.31 Inactive Yolande Lindsay MD PhD MUSCLE PAIN ICD-729.1 Inactive Yolande Lindsay MD PhD GERD ICD-530.81 Inactive Todd Callaway MD CHEST PAIN, UNSPECIFIED ICD-786.50 Inactive Yolande Lindsay [...] DERMATITIS ICD-692.6 Inactive Yolande Lindsay MD PhD LONG-TERM (CURRENT) USE OF OTHER MEDICATIONS ICD-V58.69 Inactive Yolande Lindsay MD PhD GERD ICD-530.81 Inactive Yolande Lindsay MD PhD 07/16 FISSURE, ANAL ICD-565.0 Inactive Yolande Lindsay MD PhD INGROWN TOENAIL ICD-703.0 Inactive Yolande Lindsay MD PhD INGROWN MARAHNAIL ICD-703.0 Inactive Yolande Lindsay MD PhD Hip [...] URI ICD-465.9 Inactive Yolande Lindsay MD PhD Muscle spasm, back ICD-724.8 Inactive Yolande Lindsay MD PhD Sinusitis, acute ICD-461.9 Inactive Yolande Lindsay MD PhD Abdominal pain, LLQ ICD-789.04 Inactive Yolande Lindsay MD PhD Accidental fall ICD-E888.9 Inactive Yolande Lindsay MD PhD Knee sprain, left ICD-844.9 Inactive Yolande Lindsay MD PhD Ankle sprain, left ICD-845.00 Inactive Yolande Lindsay MD PhD Hip pain, left ICD-719.45 Inactive Yolande Lindsay MD PhD Flank pain ICD-789.09 Inactive Yolande Lindsay MD PhD Sinusitis ICD-461.9 Inactive Yolande Lindsay MD PhD Medication List Medication Instructions Start Date Stop Date Generic Name NDC Status Provider Patient Instruction PREDNISONE 20 MG TAB 2 tabs daily for 3 days, 1 tab daily for 3 days, 1/2 tab daily for 2 days PREDNISONE 92771174082 No Longer Active Gab Padron MD Active ZOFRAN ODT 4 MG TBDP 1 po q6hr PRN Nausea ONDANSETRON 04121622908 Active Jillina Frazell [employer] INST[employer]ER Active IBUPROFEN 600 MG TAB 1 tablet by mouth every 6 hours for 7 days, then 1 tablet every 6 hours as needed. Take with food IBUPROFEN 10328801455 Active Jillina Frazell [employer] LINE INSTALLER Active BACTRIM DS 800-160 MG TAB 1 tab by mouth twice daily TRIMETHOPRIM-SULFAMETHOXAZOLE 42395185214 No Longer Active Gab Padron MD Active ADVAIR DISKUS 250-50 MCG/DOSE AEPB 1 puff BID FLUTICASONE- SALMETEROL 44272522108 Active Rodrigo Sarah APRN Active LEVOTHYROXINE SODIUM 75 MCG TABS Take 1 tab daily LEVOTHYROXINE SODIUM 87527768438 No Longer Active Mariana HICKEYA Active SYNTHROID 88 MCG ORAL TABS Take one by mouth daily LEVOTHYROXINE SODIUM 59866119635 Active Mariana HICKEYA Active CHERATUSSIN AC 100-10 MG/5ML SYRP 1 tsp by mouth every 4 hours as needed for cough GUAIFENESIN-CODEINE 50216294331 No Longer Active Gab Padron MD Active POLYTRIM 05980-9.1 UNIT/ML-% SOLN 1 gtt to affected eye q3h x 7 days POLYMYXIN B-TRIMETHOPRIM 46993857001 No Longer Active Gab Padron MD Active FLUTICASONE PROPIONATE 50 MCG/ACT SUSP 1 to 2 sprays each nostril daily 04/21 FLUTICASONE PROPIONATE 83700766276 No Longer Active Gab Padron MD Active TRILEPTAL 600 MG TABS Take one 1 tablet in Am and 1 tablet at night OXCARBAZEPINE 46237730674 Active Gab Padron MD Active CEFDINIR 300 MG CAPS 1 po BID x 10 days CEFDINIR 11920729806 No Longer Active Rodrigo Sarah APRN Active CEFTIN 500 MG TAB 1 twice a day CEFUROXIME AXETIL 70657670933 No Longer Active Gab Padron MD Active AZITHROMYCIN 250 MG TABS 2 po qd x 1 day, then 1 po qd x 4 days AZITHROMYCIN 31081374617 No Longer Active Silvestrellnacho Sarah APRN Active CLARITIN 10 MG TAB 1 tablet by mouth daily as needed for allergies LORATADINE 13166040766 Active Silvestrellnacho Sarah APRN Active OXYCODONE HCL 5 MG ORAL CAPS 1 TAB PO Q HS OXYCODONE HCL 08288256039 No Longer Active Rodrigo Sarah APRN Active NIASPAN 500 MG ORAL CR-TABS 1 pill nightly x 1 week, then 2 pills nightly x 1 week, then 3 pills nightly x 1 week, then 4 pills nightly NIACIN (ANTIHYPERLIPIDEMIC) 94974500642 No Longer Active Rodrigo Farshadhossein ZAPATAN Active NIACIN 500 MG TABS 1 pill by mouth nightly x 1 week, then 2 pills x 1 week, then 3 pills x 1 week, then 4 pills nightly - take after evening meal, with applesauce or an apple NIACIN 80682792993 No Longer Active Yolande Lindsay MD PhD Active FISH OIL 1000 MG CAPS 3 pills daily OMEGA-3 FATTY ACIDS 50729990239 Active Yolande Lindsay MD PhD Active TRIAMCINOLONE ACETONIDE 0.1 % CREA apply bid sparingly to rash TRIAMCINOLONE ACETONIDE 88099646424 Active Yolande Lindsay MD PhD Active FUROSEMIDE 20 MG TAB 1 tablet by mouth daily FUROSEMIDE 60533032656 Active Tisha Lambert APRN Active LISINOPRIL 20 MG ORAL TABS 1 tab by mouth daily LISINOPRIL 89770649694 Active Gab Padron MD Active FUROSEMIDE 20 MG TABS 1 pill by mouth daily, for edema FUROSEMIDE 14904488908 No Longer Active Yolnade Lindsay MD PhD Active ATORVASTATIN CALCIUM 10 MG TABS 1 pill by mouth daily, for cholesterol 09/06 ATORVASTATIN CALCIUM 38692729845 Active Gab Padron MD Active CALCIUM 600+D PLUS MINERALS 600-400 MG-UNIT ORAL CHEW 1 tab by mouth daily CALCIUM CARBONATE-VIT D-MIN 68130593934 No Longer Active Yolande Lindsay MD PhD Active CYCLOBENZAPRINE HCL 10 MG TABS 1 tablet by mouth three times daily as needed for muscle spasm/pain CYCLOBENZAPRINE HCL 07583411574 Active Yloande Lindsay MD PhD Active ONDANSETRON 4 MG TBDP 1 q4h PRN nausea ONDANSETRON 75854324946 Active Yolande Lindsay MD PhD Active ADULT ASPIRIN EC LOW STRENGTH 81 MG TBEC Take 1 tablet by mouth daily 2014 ASPIRIN 75061611277 No Longer Active Yolande Lindsay MD PhD Active ZOFRAN ODT 4 MG TBDP 1 pill dissolved by mouth every 4 hours if needed for nausea ONDANSETRON 35528494632 No Longer Active Yolande Lindsay MD PhD Active CEFTIN 500 MG TAB 1 twice a day CEFUROXIME AXETIL 26056018892 No Longer Active Yolande Lindsay MD PhD Active ALBUTEROL SULFATE 0.083 % NEBU SOLN one vial per nebulizer every 4-6 hours as needed ALBUTEROL SULFATE 49518565096 No Longer Active Alexis Ordaz MD Active DOXYCYCLINE HYCLATE 100 MG CAP 1 cap by mouth twice daily DOXYCYCLINE HYCLATE 22497152036 No Longer Active Yolande Lindsay MD PhD Active CYCLOBENZAPRINE HCL 10 MG TABS 1/2 - 1 tab by mouth three times daily if needed for spasms/pain CYCLOBENZAPRINE HCL 27108343886 No Longer Active Yolande Lindsay MD PhD Active AZITHROMYCIN 250 MG TABS 2 pills on day 1, then 1 pill daily x 4 days AZITHROMYCIN 89429434888 No Longer Active Yolande Lindsay MD PhD Active XOPENEX 1.25 MG/3ML NEBU 1 neb every 4 hours if needed for cough/congestion LEVALBUTEROL HCL 35535568711 No Longer Active Yolande Lindsay MD PhD Active DOXYCYCLINE HYCLATE 100 MG TAB 1 tab twice a day for 14 days 2013 DOXYCYCLINE HYCLATE 67825258295 No Longer Active Yolande Lindsay MD PhD Active PREVACID 30 MG CPDR Take 1 tablet by mouth daily-PRN LANSOPRAZOLE 18965990900 No Longer Active Yolande Lindsay MD PhD Active PA VITAMIN D-3 2000 UNIT CAPS 1 CAP PO DAILY CHOLECALCIFEROL 99741164896 No Longer Active Yolande Lindsay MD PhD Active CEFDINIR 300 MG CAPS by mouth twice a day CEFDINIR 39024692155 No Longer Active Gab Padron MD Active TOPAMAX 50 MG TABS 1 PO twice daily TOPIRAMATE 74909557296 Active Yolande Lindsay MD PhD Active AZITHROMYCIN 250 MG TABS 2 po qd x 1 day, then 1 po qd x 4 days AZITHROMYCIN 49652874360 No Longer Active Yolande Lindsay MD PhD Active DICLOFENAC SODIUM 75 MG TBEC 1 tablet by q 12 hours PRN headaches DICLOFENAC SODIUM 44362869797 No Longer Active Yolande Lindsay MD PhD Active FLONASE 50 MCG/ACT SUSP 1 spray each nostril am and hs FLUTICASONE PROPIONATE 45001019059 No Longer Active Todd Callaway MD Active ANUSOL-HC 25 MG SUPPOSITORY 1 rectally twice a day as needed for hemorrhoids HYDROCORTISONE JAYDEN (RECTAL) 18276414227 No Longer Active Yolande Lindsay MD PhD Active ANUSOL-HC 25 MG SUPPOSITORY 1 suppository rectally each evening as needed for anal fissure HYDROCORTISONE JAYDEN (RECTAL) 38033032070 No Longer Active LONNIE Iglesias Active VALIUM 5 MG TAB 1 po 30 minutes prior to your MRI DIAZEPAM 51875773162 No Longer Active LONNIE Iglesias Active METHOCARBAMOL 750 MG TABS 1 PO QID PRN METHOCARBAMOL 87992153965 No Longer Active Daphne Wetzel APRN Active NITROSTAT 0.4 MG SUBL as directed NITROGLYCERIN 79921282622 No Longer Active Rodrigo Sarah APRN Active ROBAXIN-750 750 MG TABS 2 four times a day for 3 days as needed for muscle spasm, then 1 four times a day as needed METHOCARBAMOL 44060715556 No Longer Active Rodrigo Sarah APRN Active HYDROCODONE-ACETAMINOPHEN 5-325 MG TABS 1 q 4-6 hrs prn HYDROCODONE-ACETAMINOPHEN 24146350720 No Longer Active Rodrigo Sarah [employer] LINE INSTALLER Active VERAPAMIL HCL CR 180 MG CR-TABS TAKE 1 TAB DAILY VERAPAMIL HCL 18953298015 No Longer Active Yolande Lindsay MD PhD Active BACTRIM DS 800-160 MG TAB 1 tab by mouth twice daily TRIMETHOPRIM-SULFAMETHOXAZOLE 98815200993 No Longer Active Yolande Lindsay MD PhD Active NEXIUM 40 MG PACK 1 by mouth daily ESOMEPRAZOLE MAGNESIUM 38249701154 No Longer Active Des Hines MD Active EPIPEN 2-CHARLETTE 0.3 MG/0.3ML OMARI as need for allergic reaction EPINEPHRINE 21300953677 Active Yolande Lindsay MD PhD Active NEXIUM 40 MG CPDR 1 PO Q D DAY ESOMEPRAZOLE MAGNESIUM 81581626801 No Longer Active Sadia Perry RN Active NEXIUM 40 MG PACK 1 by mouth daily NEXIUM 40 MG PACK ESOMEPRAZOLE MAGNESIUM Inactive VERAPAMIL HCL CR 180 MG CR-TABS TAKE 1 TAB DAILY VERAPAMIL HCL CR 180 MG CR-TABS VERAPAMIL HCL Inactive HYDROCODONE-ACETAMINOPHEN 5-325 MG TABS 1 q 4-6 hrs prn HYDROCODONE-ACETAMINOPHEN 5-325 MG TABS 866891 HYDROCODONE-ACETAMINOPHEN Inactive ROBAXIN-750 750 MG TABS 2 four times a day for 3 days as needed for muscle spasm, then 1 four times a day as needed ROBAXIN-750 750 MG TABS 265200 METHOCARBAMOL Inactive NITROSTAT 0.4 MG SUBL as directed NITROSTAT 0.4 MG SUBL NITROGLYCERIN Inactive METHOCARBAMOL 750 MG TABS 1 PO QID PRN METHOCARBAMOL 750 MG TABS 623243 METHOCARBAMOL Inactive VALIUM 5 MG TAB 1 po 30 minutes prior to your MRI VALIUM 5 MG TAB 253715 DIAZEPAM Inactive ANUSOL-HC 25 MG SUPPOSITORY 1 suppository rectally each evening as needed for anal fissure ANUSOL-HC 25 MG SUPPOSITORY 5221310 HYDROCORTISONE JAYDEN (RECTAL) Inactive ANUSOL-HC 25 MG SUPPOSITORY 1 rectally twice a day as needed for hemorrhoids ANUSOL-HC 25 MG SUPPOSITORY 5935570 HYDROCORTISONE JAYDEN (RECTAL) Inactive FLONASE 50 MCG/ACT SUSP 1 spray each nostril am and hs FLONASE 50 MCG/ACT SUSP FLUTICASONE PROPIONATE Inactive DICLOFENAC SODIUM 75 MG TBEC 1 tablet by q 12 hours PRN headaches DICLOFENAC SODIUM 75 MG TBEC 949407 DICLOFENAC SODIUM Inactive PA VITAMIN D-3 2000 UNIT CAPS 1 CAP PO DAILY PA VITAMIN D-3 2000 UNIT CAPS CHOLECALCIFEROL Inactive PREVACID 30 MG CPDR Take 1 tablet by mouth daily-PRN PREVACID 30 MG CPDR 596383 LANSOPRAZOLE Inactive DOXYCYCLINE HYCLATE 100 MG TAB 1 tab twice a day for 14 days 2013 DOXYCYCLINE HYCLATE 100 MG TAB 3292134 DOXYCYCLINE HYCLATE Inactive XOPENEX 1.25 MG/3ML NEBU 1 neb every 4 hours if needed for cough/congestion XOPENEX 1.25 MG/3ML NEBU 921682 LEVALBUTEROL HCL Inactive CYCLOBENZAPRINE HCL 10 MG TABS 1/2 - 1 tab by mouth three times daily if needed for spasms/pain CYCLOBENZAPRINE HCL 10 MG TABS 818793 CYCLOBENZAPRINE HCL Inactive ALBUTEROL SULFATE 0.083 % NEBU SOLN one vial per nebulizer every 4-6 hours as needed ALBUTEROL SULFATE 0.083 % NEBU SOLN 669406 ALBUTEROL SULFATE Inactive CEFTIN 500 MG TAB 1 twice a day CEFTIN 500 MG TAB 650581 CEFUROXIME AXETIL Inactive ZOFRAN ODT 4 MG TBDP 1 pill dissolved by mouth every 4 hours if needed for nausea ZOFRAN ODT 4 MG TBDP 682361 ONDANSETRON Inactive ADULT ASPIRIN EC LOW STRENGTH 81 MG TBEC Take 1 tablet by mouth daily 2014 ADULT ASPIRIN EC LOW STRENGTH 81 MG TBEC 979001 ASPIRIN Inactive CALCIUM 600+D PLUS MINERALS 600-400 [...] or an apple NIACIN 500 MG TABS 741778 NIACIN Inactive NIASPAN 500 MG ORAL CR-TABS 1 pill nightly x 1 week, then 2 pills nightly x 1 week, then 3 pills nightly x 1 week, then 4 pills nightly NIASPAN 500 MG ORAL CR-TABS NIACIN (ANTIHYPERLIPIDEMIC) Inactive OXYCODONE HCL 5 MG ORAL CAPS 1 TAB PO Q HS OXYCODONE HCL 5 MG ORAL CAPS 1652975 OXYCODONE HCL Inactive FLUTICASONE PROPIONATE 50 MCG/ACT SUSP 1 to 2 sprays each nostril daily 04/21 FLUTICASONE PROPIONATE 50 MCG/ACT SUSP 524286 FLUTICASONE PROPIONATE Inactive POLYTRIM 61185-3.1 UNIT/ML-% SOLN 1 gtt to affected eye q3h x 7 days POLYTRIM 25389-9.1 UNIT/ML-% SOLN 406483 POLYMYXIN B- TRIMETHOPRIM Inactive CHERATUSSIN AC 100-10 MG/5ML SYRP 1 tsp by mouth every 4 hours as needed for cough CHERATUSSIN AC 100-10 MG/5ML SYRP 783847 GUAIFENESIN-CODEINE Inactive LEVOTHYROXINE SODIUM 75 MCG TABS Take 1 tab daily LEVOTHYROXINE SODIUM 75 MCG TABS 264529 LEVOTHYROXINE SODIUM Inactive BACTRIM DS 800-160 MG TAB 1 tab by mouth twice daily BACTRIM DS 800-160 MG TAB 19820606 TRIMETHOPRIM-SULFAMETHOXAZOLE Inactive AZITHROMYCIN 250 MG TABS 2 po qd x 1 day, then 1 po qd x 4 days AZITHROMYCIN 250 MG TABS 3112341 AZITHROMYCIN Inactive CEFDINIR 300 MG CAPS by mouth twice a day CEFDINIR 300 MG CAPS 003667 CEFDINIR Inactive AZITHROMYCIN 250 MG TABS 2 pills on day 1, then 1 pill daily x 4 days AZITHROMYCIN 250 MG TABS 9915531 AZITHROMYCIN Inactive DOXYCYCLINE HYCLATE 100 MG CAP 1 cap by mouth twice daily DOXYCYCLINE HYCLATE 100 MG CAP 2317273 DOXYCYCLINE HYCLATE Inactive FUROSEMIDE 20 MG TABS 1 pill by mouth daily, for edema FUROSEMIDE 20 MG TABS 854344 FUROSEMIDE Inactive AZITHROMYCIN 250 MG TABS 2 po qd x 1 day, then 1 po qd x 4 days AZITHROMYCIN 250 MG TABS 8047200 AZITHROMYCIN Inactive CEFTIN 500 MG TAB 1 twice a day CEFTIN 500 MG TAB 688929 CEFUROXIME AXETIL Inactive CEFDINIR 300 MG CAPS [...] for 2 days PREDNISONE 20 MG TAB 071179 PREDNISONE Inactive Immunizations Vaccine Administration Date Value Standard Description Seasonal influenza vaccine, injectable, containing preservative, for > 3 years old (Afluria, FluLaval, Fluzone, Fluvirin, Fluarix, Agriflu(>=18 yo)) Fluzone (>3 yrs.) [FNB685] Influenza, seasonal, injectable influenza immunization (Flu Vax) has been administered Influenza - Unspecified Formulation [CVX88] influenza virus vaccine, unspecified formulation Seasonal influenza vaccine, injectable, containing preservative, for > 3 years old (Afluria, FluLaval, Fluzone, Fluvirin, Fluarix, Agriflu(>=18 yo)) Fluzone (>3 yrs.) [LZP302] Influenza, seasonal, injectable pneumococcal immunization administered Pneumovax 23 [CVX33] pneumococcal polysaccharide vaccine, 23 valent dT (Diphtheria and Tetanus) booster given given Td(adult) unspecified formulation Boostrix (Tetanus toxoid, reduced diphtheria toxoid and acellular pertussis vaccine, adsorbed), booster Boostrix [VMF999] tetanus toxoid, reduced diphtheria toxoid, and acellular [...] BP ewldon blood pressure, systolic - 8480-6 121 mm[Hg] [...] Panel - Chemistry sodium, serum 142 mmol/L 174-793 0634/06/30 potassium, serum 4.4 mmol/L 3.5-5.2 chloride, serum 108 mmol/L 98-107 carbon dioxide, venous blood 25.1 mmol/L 21.0-32.0 blood glucose 82 mg/dL 65-110 calcium, serum 9.1 mg/dL 8.5-10.1 urea nitrogen, blood 18 mg/dL 7-18 creatinine, serum 1.31 mg/dL 0.55-1.30 Lab Report: [facility] Advanced Lipid and Inlammation Panel /48816 - Chemistry cholesterol, serum 148 mg/dL 023-654 3219/09/02 HDL cholesterol, serum 55 mg/dL > OR=46 triglyceride, serum, fasting 67 mg/dL LDL cholesterol, serum 80 mg/dL cholesterol/HDL ratio, serum 2.7 calc < OR=5.0 Lab Report: CBC - Hematology mean corpuscular hemoglobin, RBC 26.5 pg 27.0-31.2 mean corpuscular hemoglobin concentration, RBC 31.6 G/DL % 31.8- 35.4 red blood cell distribution width 15.7 % 11.6-14.8 platelet count 224 10^3/MM^3 10*3/mm3 509-467 3832/12/30 mean corpuscular volume, RBC 84 fL 80-97 hematocrit, blood 33.7 % 36.0-46.0 hemoglobin, blood 10.7 g/dL 12.0-16.0 erythrocyte (RBC) count 4.03 10^6/MM^3 10*6/mm3 4.04-5.48 leukocyte count, blood 5.3 10^3/MM^3 10*3/mm3 4.6-10.2 Lab Report: CBC W/DIFF, RapidStrep Rflx/Cx, TIERA INFLUENZA A/B - Hematology leukocyte count, blood 5.3 10^3/MM^3 10*3/mm3 4.6-10.2 hematocrit, blood 33.7 % 36.0-46.0 mean corpuscular volume, RBC 85 fL 80-97 mean corpuscular hemoglobin, RBC 27.7 pg 27.0-31.2 mean corpuscular hemoglobin concentration, RBC 32.4 G/DL % 31.8- 35.4 red blood cell distribution width 20.2 % 11.6-14.8 platelet count 179 10^3/MM^3 10*3/mm3 673-125 0295/03/24 neutrophils as percent of blood leukocytes 64.0 % 42.2-75.2 monocytes as percent of blood leukocytes 11.3 % 1.7-9.3 lymphocytes as percent of blood leukocytes 22.7 % 20.5-51.1 erythrocyte (RBC) count 3.94 10^6/MM^3 10*6/mm3 4.04-5.48 hemoglobin, blood 10.9 g/dL 12.0-16.0 Lab Report: CBC W/DIFF, RapidStrep Rflx/Cx, TIERA INFLUENZA A/B - Lab Microbial identification kit, rapid strep method Negative-Throat Culture to Follow Negative Lab Report: CBC W/DIFF, RapidStrep Rflx/Cx, TIERA INFLUENZA A/B - Toxicology rapid flu test Negative Negative;Positive Lab Report: CBC, Comp. Metabolic Panel, Thyroid Stimulating Hormone (L) - Chemistry sodium, serum 145 mmol/L 473-658 1215/09/02 potassium, serum 4.6 mmol/L 3.5-5.2 chloride, serum [...] Rate - Chemistry sodium, serum 139 mmol/L 894-489 6121/03/24 carbon dioxide, venous blood 22.4 mmol/L 21.0-32.0 [...] W/MICRO, AUTO, Thyroid Stimulat ... - Chemistry calcium, serum 8.5 mg/dL 8.5-10.1 bilirubin, serum, total 0.30 mg/dL 0.00-1.00 sodium, serum 143 mmol/L 678-350 3828/05/02 carbon dioxide, venous blood 25.6 mmol/L 21.0-32.0 potassium, serum 4.8 mmol/L 3.5-5.2 chloride, serum 108 mmol/L 98-107 blood glucose 70 mg/dL 65-110 urea nitrogen, blood 20 mg/dL 7-18 creatinine, serum 1.21 mg/dL 0.55-1.30 alanine aminotransferase (SGPT), serum 32 U/L -78 aspartate aminotransferase (SGOT), serum 18 U/L 15-37 protein, total urine random Negative mg/dL Negative [...] Negative mg/dL Negative sodium, serum 142 mmol/L 084-760 1128/07/18 carbon dioxide, venous blood 27.8 mmol/L 21.0-32.0 [...] mg/dL Encounters Code Encounter Date Provider Facility CPT-87638 Level 3 Est. Patient 11:01:51 CDT Gab Padron MD [facility] CPT-33087 Level 3 Est. Patient 15:27:02 CDT Jared Og MD [facility] [place] CPT-24428 Level 4 Est. Patient 09:25:27 CDT Gab Padron MD [facility] CPT-59565 Level 3 Est. Patient 10:29:41 CDT Rodrigo Sarah APRN [facility] CPT-91549 Level 4 Est. Patient 17:51:05 CDT Gab Padron MD [facility] CPT-65566 Level 3 Est. Patient 14:18:08 CDT Gab Padron MD [facility] CPT-58855 Level 4 Est. Patient 10:18:54 CDT Gab Padron MD [facility] CPT-67038 Level 3 Est. Patient 11:30:07 CDT Rodrigo Sarah APRN [facility] CPT-26356 Level 4 Est. Patient 21:02:30 LEAD ELECTRICIAN Gab Padron MD [facility]-90724 Level 3 Est. Patient 11:02:19 LEAD ELECTRICIAN Gab Padron MD [facility]-92966 Level 4 Est. Patient 22:24:31 LEAD ELECTRICIAN Gab Padron MD [facility]-05019 Level 3 Est. Patient 18:33:46 LEAD ELECTRICIAN Gab Padron MD [facility]-08381 Level 3 Est. Patient 16:19:11 CDT Yolande Lindsay MD [facility]-81344 Level 3 Est. Patient 18:59:14 CDT Yolande Lindsay MD [facility]-48971 Level 4 Est. Patient 21:29:26 CDT Yolande Lindsay MD [facility]-10948 Level 3 Est. Patient 07:37:45 CDT Yolande Lindsay MD [facility]-52105 Level 3 Est. Patient 17:03:46 CDT Yolande Lindsay MD [facility]-45616 Level 4 Est. Patient 20:02:13 LEAD ELECTRICIAN Yolande Lindsay MD [facility]-75218 Level 3 Est. Patient 16:02:07 LEAD ELECTRICIAN Alexis Ordaz MD [facility]-83062 Level 3 Est. Patient 12:41:24 LEAD ELECTRICIAN Yolande Lindsay MD [facility]-09911 Level 3 Est. Patient 15:41:20 LEAD ELECTRICIAN Yolande Lindsay MD [facility]-72634 Level 3 Est. Patient 13:20:02 LEAD ELECTRICIAN Yolande Lindsay MD [facility]-07624 Level 3 Est. Patient 15:00:38 CDT Jared Og MD [facility]-66457 Level 3 Est. Patient 10:22:32 CDT Yolande Lindsay MD [facility]-82585 Level 3 Est. Patient 17:12:58 CDT Yolande Lindsay MD [facility]-75646 Level 4 Est. Patient 13:30:58 CDT Yolande Lindsay MD [facility]-50411 Level 4 New Patient 09:02:42 CDT Jared Og MD [facility]-36495 Level 3 Est. Patient 08:19:07 CDT Yolande Lindsay MD [facility]-58150 Level 3 Est. Patient 12:00:13 LEAD ELECTRICIAN Gab Padron MD [facility]-38552 Level 3 Est. Patient 16:15:23 LEAD ELECTRICIAN Yolande Lindsay MD [facility] CPT-77846 Level 2 Est. Patient 19:47:15 CDT Yolande Lindsay MD [facility]-33359 Level 3 Est. Patient 21:38:31 CDT Yolande Lindsay MD [facility]-60850 Level 3 Est. Patient 10:25:12 CDT Adiel PERAZA [facility] CPT-95288 Level 4 Est. Patient 10:51:58 CDT Yolande Lindsay MD [facility]-42093 Level 3 Est. Patient 14:04:55 LEAD ELECTRICIAN Rodrigo Sarah [facility]-82970 Level 3 Est. Patient 10:46:35 LEAD ELECTRICIAN Rodrigo Sarah [facility] CPT-88279 Level 3 Est. Patient 14:24:37 LEAD ELECTRICIAN Yolande Lindsay MD [facility] CPT-51277 Level 3 Est. Patient 17:41:58 LEAD ELECTRICIAN Yolande Lindsay MD [facility] CPT-87925 Level 2 Est. Patient 22:01:41 LEAD ELECTRICIAN Rodrigo Sarah [facility] CPT-01843 Level 2 Est. Patient 22:01:11 LEAD ELECTRICIAN Rodrigo Sarah [facility] CPT-97401 Level 3 Est. Patient 10:12:29 LEAD ELECTRICIAN Rodrigo Sarah [facility] CPT-43757 Level 3 Est. Patient 11:05:44 CDT Alexis Ordaz MD [facility] CPT-36907 Level 3 Est. Patient 14:57:20 CDT Yolande Lindsay MD [facility] CPT-31251 Level 3 Est. Patient 14:40:57 CDT Yolande Lindsay MD [facility] CPT-79190 Level 3 Est. Patient 20:55:40 CDT Yolande Lindsay MD [facility] CPT-85231 Level 3 Est. Patient 12:42:38 LEAD ELECTRICIAN Yolande Lindsay MD [facility]-87303 Level 3 Est. Patient 11:54:49 LEAD ELECTRICIAN Des Hines MD [facility] CPT-48547 Level 3 Est. Patient 17:06:38 CDT Dewayne PERAZA [facility] Procedures Code Procedure Name Date Entry Date Standard Description CPT-98016 Foot, left, comp min 3V - XRAY USE ONLY 09:24:54 CDT CPT-41217 Abd single AP View - XRAY USE ONLY 11:16:17 CDT CPT-46189 T spine AP/ Lat - XRAY USE ONLY 09:34:21 CDT CPT-13098 Chest 2V Frontal and Lat - XRAY USE ONLY 10:48:51 CDT CPT-94198 LS spine comp w obliq 13:28:00 LEAD ELECTRICIAN CPT-J1040 Depo Medrol 80 mg (Methyl Prednisolone Acetate) 10:51: 28 LEAD ELECTRICIAN CPT-J1100 Decadron 8mg (Dexamethasone) 10:51:28 LEAD ELECTRICIAN CPT-88835 Abx/Therapy Injection 10:51:28 LEAD ELECTRICIAN CPT-J1100 Decadron 8mg (Dexamethasone) 21:02:30 LEAD ELECTRICIAN CPT-J1040 Depo Medrol 80 mg (Methyl Prednisolone Acetate) 21:02: 30 LEAD ELECTRICIAN [id number] Event Monitor - MC Transmission 09:12:32 CDT 08/06 [id number] Event Monitor - MC review and interp 09:12:32 CDT [id number] Event Monitor - MC recording 09:12:32 CDT CPT-17435 EKG Trac and Interp 16:50:22 CDT CPT-J1030 Depo Medrol 40 mg (Methyl Prednisolone Acetate) 17:05: 54 CDT CPT-J1100 Decadron 4mg (Dexamethasone) 17:05:54 CDT CPT-73957 Abx/Therapy Injection 17:05:54 CDT CPT-J1100 Decadron 4mg (Dexamethasone) 16:55:28 CDT CPT-J1030 Depo Medrol 40 mg (Methyl Prednisolone Acetate) 16:55: 28 CDT CPT-53093 Ankle Complete - Min 3V 15:58:50 CDT CPT-81119 Knee 3V 15:58:50 CDT CPT-87539 Hip comp min 2V 15:58:50 CDT CPT-J2270 Morphine Sulfate 10 mg 14:25:44 LEAD ELECTRICIAN CPT-J2550 Phenergan 12.5 mg (Promethazine) 14:25:44 LEAD ELECTRICIAN CPT-20978 Abx/Therapy Injection 14:25:44 LEAD ELECTRICIAN CPT-J2550 Phenergan 12.5 mg (Promethazine) 14:08:03 LEAD ELECTRICIAN CPT-J2270 Morphine Sulfate 10 mg 14:08:03 LEAD ELECTRICIAN CPT-46446 Bladder Scan 15:00:38 CDT CPT-TCMM Transitional Care Mgmt-Moderate 09:52:22 CDT CPT-J1030 Depo Medrol 40 mg (Methyl Prednisolone Acetate) 10:55: 18 CDT CPT-J1100 Decadron 4mg (Dexamethasone) 10:55:18 CDT CPT-89797 Abx/Therapy Injection 10:55:18 CDT CPT-J1030 Depo Medrol 40 mg (Methyl Prednisolone Acetate) 10:22: 32 CDT CPT-J1100 Decadron 4mg (Dexamethasone) 10:22:32 CDT CPT-36621 Postop F/U Visit 14:37:13 CDT CPT-05407 Ankle Complete - Min 3V 17:11:58 CDT CPT-11617 Foot comp min 3V 17:11:58 CDT CPT-59878 Bladder Scan 09:56:58 CDT CPT-98834 Postop F/U Visit 09:56:58 CDT CPT-81340 Cystoscopy 09:02:42 CDT CPT-67446 Bladder Scan 09:02:42 CDT CPT-65708 Abd single AP View 16:00:35 CDT CPT-04977 Administration single or combination vaccine inc oral 10 :15:43 CDT CPT-10684 Influenza split virus > age 3 10:15:43 CDT CPT-05727 Nail Avulsion 09:24:57 CDT CPT-OV Office Visit 11:15:41 CDT CPT-89760 Abx/Therapy Injection 10:51:30 CDT CPT-J3301 Kenalog 40 mg (Triamcinolone Acetonide) 10:25:12 CDT CPT-J1100 Decadron 4mg (Dexamethasone) 10:25:12 CDT CPT-56028 Anoscopy diagnostic 10:36:12 CDT CPT-OV Office Visit 15:34:31 CDT CPT-44797 Abx/Therapy Injection 08:21:15 LEAD ELECTRICIAN CPT-J1885 Toradol 60 mg (Ketorolac) 10:46:35 LEAD ELECTRICIAN CPT-OV Office Visit 19:51:16 LEAD ELECTRICIAN CPT-28062 Spec Collection and Handling Fee 14:34:18 LEAD ELECTRICIAN CPT-PV Prev. Care Visit 14:19:18 LEAD ELECTRICIAN CPT-44898 Postop F/U Visit 14:47:51 LEAD ELECTRICIAN CPT-72888 Postop F/U Visit 15:15:14 LEAD ELECTRICIAN CPT-95079 Postop F/U Visit 14:41:43 CDT CPT-89318 Postop F/U Visit 15:47:46 CDT CPT-OV Office Visit 15:27:23 CDT CPT-OV Office Visit 17:20:34 CDT CPT-60595 Abx/Therapy Injection 15:05:57 CDT CPT-J1100 Decadron 8mg (Dexamethasone) 14:44:57 CDT CPT-J1040 Depo Medrol 80 mg (Methyl Prednisolone Acetate) 14:44: 57 CDT CPT-JTINJ Joint Injection 10:17:37 CDT CPT-95218 Administration 2+ single or combination vaccines inc oral 13:01:46 LEAD ELECTRICIAN CPT-04338 Administration single or combination vaccine inc oral 13 :01:46 LEAD ELECTRICIAN CPT-86789 Pneumovax 13:01:46 LEAD ELECTRICIAN CPT-28124 Influenza split virus > age 3 13:01:46 LEAD ELECTRICIAN CPT-00904 Administration single or combination vaccine inc oral 08 :56:49 CDT CPT-77553 Tdap 08:56:49 CDT
--- OUTSIDE RECORDS SUMMARY | 2017-03-21 20:43 | XMS REPORT | Clinical Summary ---
Author Author Admin, MARGRET Organization [employer] Address Unknown Phone Unavailable Allergies, Adverse Reactions, Alerts Allergy Name Reaction Description Start Date Severity Status Provider VALENTIN Critical Active Rodrigo Montemayorl [employer]IPMENT [employer]STER CHLORHEXIDINE GLUCONATE tongue and gums swollen Critical Active Hoa Kabaford RMA NORFLEX Rash Critical Active Rowenaina Frazell [employer] E[employer]IPMENT TESTER TRAZODONE HCL sees things Critical Active Dewayne [...] of 412 Active Hoa Otto [facility] Old myocardial infarction Pelvic pain 789.09 Active Yolande Lindsay MD PhD Abdominal pain, other specified site; multiple sites Edema 782.3 Active Yolande Lindsay MD PhD Edema Rash 782.1 Active Yolande Lindsay MD PhD Rash and other nonspecific skin eruption Back pain, lumbar 724.2 Active Gab Padron MD Lumbago Cough 786.2 Active Jillina Tyrel [employer] EQUIPMENT TESTER Cough 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 Jillina Frazellilian ZAPATAN 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 Anemia 285.9 Active Gab Padron MD Anemia, unspecified Conjunctivitis 372.30 Active Jillnacho Sarah APRN Conjunctivitis, unspecified Sinusitis 473.9 Active Jillina Frazell [employer] E[employer]IPMENT TESTER Unspecified sinusitis (chronic) FOOT PAIN, RIGHT ICD-729.5 [...] Generic Name NDC Status Provider Patient Instruction CEFDINIR 300 MG CAPS 1 po BID x 10 days CEFDINIR 42502035048 No Longer Active Jillina Fracharlottel [employer] EQUIPMENT TESTER Active FLUTICASONE PROPIONATE 50 MCG/ACT SUSP 1 to 2 sprays each nostril daily 04/21 FLUTICASONE PROPIONATE 92652079777 Active Jillina Frazell [employer] EQUIPMENT TESTER Active POLYTRIM 89430-7.1 UNIT/ML-% SOLN 1 gtt to affected eye q3h x 7 days POLYMYXIN B-TRIMETHOPRIM 07753312680 Active Jillina Frazell [employer]AF[employer]Y EQUIPMENT TESTER Active CHERATUSSIN AC 100-10 MG/5ML SYRP 1 tsp by mouth every 4 hours as needed for cough GUAIFENESIN-CODEINE 34529255753 Active Gab Padron MD Active CEFTIN 500 MG TAB 1 twice a day CEFUROXIME AXETIL 77975784356 No Longer Active Gab Padron MD Active AZITHROMYCIN 250 MG TABS 2 po qd x 1 day, then 1 po qd x 4 days AZITHROMYCIN 75943442133 No Longer Active Silvestrellnacho Sarah APRN Active CLARITIN 10 MG TAB 1 tablet by mouth daily as needed for allergies LORATADINE 61005903463 Active Rodrigo Sarah APRN Active OXYCODONE HCL 5 MG ORAL CAPS 1 TAB PO Q HS OXYCODONE HCL 67091421618 No Longer Active Rodrigo Sarah APRN Active NIASPAN 500 MG ORAL CR-TABS 1 pill nightly x 1 week, then 2 pills nightly x 1 week, then 3 pills nightly x 1 week, then 4 pills nightly NIACIN (ANTIHYPERLIPIDEMIC) 37891998527 No Longer Active Rodrigo Sarah APRN Active NIACIN 500 MG TABS 1 pill by mouth nightly x 1 week, then 2 pills x 1 week, then 3 pills x 1 week, then 4 pills nightly - take after evening meal, with applesauce or an apple NIACIN 00687320552 No Longer Active Yolande Lindsay MD PhD Active FISH OIL 1000 MG CAPS 3 pills daily OMEGA-3 FATTY ACIDS 70176432734 Active Yolande Lindsay MD PhD Active TRIAMCINOLONE ACETONIDE 0.1 % CREA apply bid sparingly to rash TRIAMCINOLONE ACETONIDE 06136231273 Active Yolande Lindsay MD PhD Active FUROSEMIDE 20 MG TAB 1 tablet by mouth daily FUROSEMIDE 09018907578 Active Yolande Lindsay MD PhD Active LISINOPRIL 20 MG ORAL TABS 1 tab by mouth daily LISINOPRIL 47281587948 Active Gab Padron MD Active FUROSEMIDE 20 MG TABS 1 pill by mouth daily, for edema FUROSEMIDE 20592796166 No Longer Active Yolande Lindsay MD PhD Active ATORVASTATIN CALCIUM 10 MG TABS 1 pill by mouth daily, for cholesterol 09/06 ATORVASTATIN CALCIUM 68829790147 Active Yolande Lindsay MD PhD Active CALCIUM 600+D PLUS MINERALS 600-400 MG-UNIT ORAL CHEW 1 tab by mouth daily CALCIUM CARBONATE-VIT D-MIN 06458091484 No Longer Active Yolande Lindsay MD PhD Active CYCLOBENZAPRINE HCL 10 MG TABS 1 tablet by mouth three times daily as needed for muscle spasm/pain CYCLOBENZAPRINE HCL 60692850433 Active Yolande Lindsay MD PhD Active ONDANSETRON 4 MG TBDP 1 q4h PRN nausea ONDANSETRON 17572797358 Active Yolande Lindsay MD PhD Active ADULT ASPIRIN EC LOW STRENGTH 81 MG TBEC Take 1 tablet by mouth daily 2014 ASPIRIN 99879214739 No Longer Active Yolande Lindsay MD PhD Active ZOFRAN ODT 4 MG TBDP 1 pill dissolved by mouth every 4 hours if needed for nausea ONDANSETRON 22007302723 No Longer Active Yolande Lindsay MD PhD Active CEFTIN 500 MG TAB 1 twice a day CEFUROXIME AXETIL 73626406728 No Longer Active Yolande Lindsay MD PhD Active ALBUTEROL SULFATE 0.083 % NEBU SOLN one vial per nebulizer every 4-6 hours as needed ALBUTEROL SULFATE 76704410341 No Longer Active Alexis Ordaz MD Active DOXYCYCLINE HYCLATE 100 MG CAP 1 cap by mouth twice daily DOXYCYCLINE HYCLATE 00938154923 No Longer Active Yolande Lindsay MD PhD Active CYCLOBENZAPRINE HCL 10 MG TABS 1/2 - 1 tab by mouth three times daily if needed for spasms/pain CYCLOBENZAPRINE HCL 69281128765 No Longer Active Yolande Lindsay MD PhD Active TRILEPTAL 600 MG TABS Take one 1/2 tablet in Am and 1 tablet at night OXCARBAZEPINE 96786838054 Active Yolande Lindsay MD PhD Active AZITHROMYCIN 250 MG TABS 2 pills on day 1, then 1 pill daily x 4 days AZITHROMYCIN 10576347012 No Longer Active Yolande Lindsay MD PhD Active XOPENEX 1.25 MG/3ML NEBU 1 neb every 4 hours if needed for cough/congestion LEVALBUTEROL HCL 50475297128 No Longer Active Yolande Lindsay MD PhD Active DOXYCYCLINE HYCLATE 100 MG TAB 1 tab twice a day for 14 days 2013 DOXYCYCLINE HYCLATE 41975738545 No Longer Active Yolande Lindsay MD PhD Active LEVOTHYROXINE SODIUM 75 MCG TABS Take 1 tab daily LEVOTHYROXINE SODIUM 17678810546 Active Gab Padron MD Active PREVACID 30 MG CPDR Take 1 tablet by mouth daily-PRN LANSOPRAZOLE 81881665169 No Longer Active Yolande Lindsay MD PhD Active PA VITAMIN D-3 2000 UNIT CAPS 1 CAP PO DAILY CHOLECALCIFEROL 77713798936 No Longer Active Yolande Lindsay MD PhD Active CEFDINIR 300 MG CAPS by mouth twice a day CEFDINIR 73390219441 No Longer Active Gab Padron MD Active TOPAMAX 50 MG TABS 1 PO twice daily TOPIRAMATE 51433565055 Active Yolande Lindsay MD PhD Active AZITHROMYCIN 250 MG TABS 2 po qd x 1 day, then 1 po qd x 4 days AZITHROMYCIN 91558971922 No Longer Active Yolande Lindsay MD PhD Active DICLOFENAC SODIUM 75 MG TBEC 1 tablet by q 12 hours PRN headaches DICLOFENAC SODIUM 74625083267 No Longer Active Yolande Lindsay MD PhD Active FLONASE 50 MCG/ACT SUSP 1 spray each nostril am and hs FLUTICASONE PROPIONATE 83454534680 No Longer Active Todd Callaway MD Active ANUSOL-HC 25 MG SUPPOSITORY 1 rectally twice a day as needed for hemorrhoids HYDROCORTISONE JAYDEN (RECTAL) 52197247142 No Longer Active Yolande Lindsay MD PhD Active ANUSOL-HC 25 MG SUPPOSITORY 1 suppository rectally each evening as needed for anal fissure HYDROCORTISONE JAYDEN (RECTAL) 16039415489 No Longer Active LONNIE Iglesias Active VALIUM 5 MG TAB 1 po 30 minutes prior to your MRI DIAZEPAM 22618848600 No Longer Active LONNIE Iglesias Active METHOCARBAMOL 750 MG TABS 1 PO QID PRN METHOCARBAMOL 32841204039 No Longer Active Daphne Wetzel [employer]AFETY EQUIPMENT TESTER Active NITROSTAT 0.4 MG SUBL as directed NITROGLYCERIN 37903884201 No Longer Active Rodrigo Sarah SAFETY EQUIPMENT TESTER Active ROBAXIN-750 750 MG TABS 2 four times a day for 3 days as needed for muscle spasm, then 1 four times a day as needed METHOCARBAMOL 01347045918 No Longer Active Silvestrellina Tyrel SAFETY EQUIPMENT TESTER Active HYDROCODONE-ACETAMINOPHEN 5-325 MG TABS 1 q 4-6 hrs prn HYDROCODONE-ACETAMINOPHEN 88037007556 No Longer Active Silvestrellina Tyrel ZAPATAN Active VERAPAMIL HCL CR 180 MG CR-TABS TAKE 1 TAB DAILY VERAPAMIL HCL 41188059347 No Longer Active Yolande Lindsay MD PhD Active BACTRIM DS 800-160 MG TAB 1 tab by mouth twice daily TRIMETHOPRIM-SULFAMETHOXAZOLE 21213670250 No Longer Active Yolande Lindsay MD PhD Active NEXIUM 40 MG PACK 1 by mouth daily ESOMEPRAZOLE MAGNESIUM 79490616288 No Longer Active Des Hines MD Active EPIPEN 2-CHARLETTE 0.3 MG/0.3ML OMARI as need for allergic reaction EPINEPHRINE 48066372886 Active Yolande Lindsay MD PhD Active NEXIUM 40 MG CPDR 1 PO Q D DAY ESOMEPRAZOLE MAGNESIUM 61376542962 No Longer Active Sadia Perry RN Active NEXIUM 40 MG PACK 1 by mouth daily NEXIUM 40 MG PACK ESOMEPRAZOLE MAGNESIUM Inactive VERAPAMIL HCL CR 180 MG CR-TABS TAKE 1 TAB DAILY VERAPAMIL HCL CR 180 MG CR-TABS VERAPAMIL HCL Inactive HYDROCODONE-ACETAMINOPHEN 5-325 MG TABS 1 q 4-6 hrs prn HYDROCODONE-ACETAMINOPHEN 5-325 MG TABS 240030 HYDROCODONE-ACETAMINOPHEN Inactive ROBAXIN-750 750 MG TABS 2 four times a day for 3 days as needed for muscle spasm, then 1 four times a day as needed ROBAXIN-750 750 MG TABS 367132 METHOCARBAMOL Inactive NITROSTAT 0.4 MG SUBL as directed NITROSTAT 0.4 MG SUBL NITROGLYCERIN Inactive METHOCARBAMOL 750 MG TABS 1 PO QID PRN METHOCARBAMOL 750 MG TABS 626744 METHOCARBAMOL Inactive VALIUM 5 MG TAB 1 po 30 minutes prior to your MRI VALIUM 5 MG TAB 107047 DIAZEPAM Inactive ANUSOL-HC 25 MG SUPPOSITORY 1 suppository rectally each evening as needed for anal fissure ANUSOL-HC 25 MG SUPPOSITORY 1870183 HYDROCORTISONE JAYDEN (RECTAL) Inactive ANUSOL-HC 25 MG SUPPOSITORY 1 rectally twice a day as needed for hemorrhoids ANUSOL-HC 25 MG SUPPOSITORY 9910272 HYDROCORTISONE JAYDEN (RECTAL) Inactive FLONASE 50 MCG/ACT SUSP 1 spray each nostril am and hs FLONASE 50 MCG/ACT SUSP FLUTICASONE PROPIONATE Inactive DICLOFENAC SODIUM 75 MG TBEC 1 tablet by q 12 hours PRN headaches DICLOFENAC SODIUM 75 MG TBEC 592205 DICLOFENAC SODIUM Inactive PA VITAMIN D-3 2000 UNIT CAPS 1 CAP PO DAILY PA VITAMIN D-3 2000 UNIT CAPS CHOLECALCIFEROL Inactive PREVACID 30 MG CPDR Take 1 tablet by mouth daily-PRN PREVACID 30 MG CPDR 108664 LANSOPRAZOLE Inactive DOXYCYCLINE HYCLATE 100 MG TAB 1 tab twice a day for 14 days 2013 DOXYCYCLINE HYCLATE 100 MG TAB 5843597 DOXYCYCLINE HYCLATE Inactive XOPENEX 1.25 MG/3ML NEBU 1 neb every 4 hours if needed for cough/congestion XOPENEX 1.25 MG/3ML NEBU 278603 LEVALBUTEROL HCL Inactive CYCLOBENZAPRINE HCL 10 MG TABS 1/2 - 1 tab by mouth three times daily if needed for spasms/pain CYCLOBENZAPRINE HCL 10 MG TABS 069189 CYCLOBENZAPRINE HCL Inactive ALBUTEROL SULFATE 0.083 % NEBU SOLN one vial per nebulizer every 4-6 hours as needed ALBUTEROL SULFATE 0.083 % NEBU SOLN 161901 ALBUTEROL SULFATE Inactive CEFTIN 500 MG TAB 1 twice a day CEFTIN 500 MG TAB 188303 CEFUROXIME AXETIL Inactive ZOFRAN ODT 4 MG TBDP 1 pill dissolved by mouth every 4 hours if needed for nausea ZOFRAN ODT 4 MG TBDP 022335 ONDANSETRON Inactive ADULT ASPIRIN EC LOW STRENGTH 81 MG TBEC Take 1 tablet by mouth daily 2014 ADULT ASPIRIN EC LOW STRENGTH 81 MG TBEC 106827 ASPIRIN Inactive CALCIUM 600+D PLUS MINERALS 600-400 [...] or an apple NIACIN 500 MG TABS 239304 NIACIN Inactive NIASPAN 500 MG ORAL CR-TABS 1 pill nightly x 1 week, then 2 pills nightly x 1 week, then 3 pills nightly x 1 week, then 4 pills nightly NIASPAN 500 MG ORAL CR-TABS NIACIN (ANTIHYPERLIPIDEMIC) Inactive OXYCODONE HCL 5 MG ORAL CAPS 1 TAB PO Q HS OXYCODONE HCL 5 MG ORAL CAPS 6723550 OXYCODONE HCL Inactive BACTRIM DS 800-160 MG TAB 1 tab by mouth twice daily BACTRIM DS 800-160 MG TAB 804267 TRIMETHOPRIM-SULFAMETHOXAZOLE Inactive AZITHROMYCIN 250 MG TABS 2 po qd x 1 day, then 1 po qd x 4 days AZITHROMYCIN 250 MG TABS 6605334 AZITHROMYCIN Inactive CEFDINIR 300 MG CAPS by mouth twice a day CEFDINIR 300 MG CAPS 20020708 CEFDINIR Inactive AZITHROMYCIN 250 MG TABS 2 pills on day 1, then 1 pill daily x 4 days AZITHROMYCIN 250 MG TABS 5250412 AZITHROMYCIN Inactive DOXYCYCLINE HYCLATE 100 MG CAP 1 cap by mouth twice daily DOXYCYCLINE HYCLATE 100 MG CAP 4970525 DOXYCYCLINE HYCLATE Inactive FUROSEMIDE 20 MG TABS 1 pill by mouth daily, for edema FUROSEMIDE 20 MG TABS 463818 FUROSEMIDE Inactive AZITHROMYCIN 250 MG TABS 2 po qd x 1 day, then 1 po qd x 4 days AZITHROMYCIN 250 MG TABS 2866164 AZITHROMYCIN Inactive CEFTIN 500 MG TAB 1 twice a day CEFTIN 500 MG TAB 365229 CEFUROXIME AXETIL Inactive CEFDINIR 300 MG CAPS 1 po BID x 10 days CEFDINIR 300 MG CAPS 690579 CEFDINIR Inactive Immunizations Vaccine Administration Date Value Standard Description Seasonal influenza vaccine, injectable, containing preservative, for > 3 years old (Afluria, FluLaval, Fluzone, Fluvirin, Fluarix, Agriflu(>=18 yo)) Fluzone (>3 yrs.) [[id number]] Influenza, seasonal, injectable influenza immunization (Flu Vax) has been administered Influenza - Unspecified Formulation [CVX88] influenza virus vaccine, unspecified formulation Seasonal influenza vaccine, injectable, containing preservative, for > 3 years old (Afluria, FluLaval, Fluzone, Fluvirin, Fluarix, Agriflu(>=18 yo)) Fluzone (>3 yrs.) [OUK449] Influenza, seasonal, injectable pneumococcal immunization administered Pneumovax 23 [CVX33] pneumococcal polysaccharide vaccine, 23 valent dT (Diphtheria and Tetanus) booster given given Td(adult) unspecified formulation Boostrix (Tetanus toxoid, reduced diphtheria toxoid and acellular pertussis vaccine, adsorbed), booster Boostrix [BKI513] tetanus toxoid, reduced diphtheria toxoid, and acellular pertussis vaccine, adsorbed Vital Signs Date Name Value Unit Range Description blood pressure, diastolic - 8462-4 59 mm[Hg] [...] rate temperature E&M 98.4 [degF] Body temperature Diagnostic Results Date Name Value Unit Range [...] Panel - Chemistry sodium, serum 145 mmol/L 474-349 5508/06/22 potassium, serum 3.9 mmol/L 3.5-5.2 chloride, serum 109 mmol/L 98-107 carbon dioxide, venous blood 23.4 mmol/L 21.0-32.0 blood glucose 92 mg/dL 65-110 calcium, serum 8.2 mg/dL 8.5-10.1 urea nitrogen, blood 24 mg/dL 7-18 creatinine, serum 1.30 mg/dL 0.60-1.30 Lab Report: [facility] Advanced Lipid and Inlammation Panel /46924 - Chemistry cholesterol, serum 198 mg/dL 939-737 0445/04/30 HDL cholesterol, serum 65 mg/dL > OR=46 triglyceride, serum, fasting 82 mg/dL LDL cholesterol, serum 117 mg/dL cholesterol/HDL ratio, serum 3.0 calc < OR=5.0 cholesterol, serum 148 mg/dL 860-743 1522/09/02 HDL cholesterol, serum 55 mg/dL > OR=46 [...] (L) - Chemistry sodium, serum 145 mmol/L 663-951 7812/09/02 potassium, serum 4.6 mmol/L 3.5-5.2 chloride, serum [...] 51 mg/dL 30-200 cholesterol, serum 173 mg/dL 708-447 0148/04/28 HDL cholesterol, serum 63 mg/dL 32-96 LDL [...] mg/dL Encounters Code Encounter Date Provider Facility CPT-19902 Level 3 Est. Patient 11:02:19 LANGUAGE PATH Gab Padron MD [facility] CPT-97473 Level 4 Est. Patient 22:24:31 LANGUAGE PATH Gab Padron MD [facility] CPT-76474 Level 3 Est. Patient 18:33:46 LANGUAGE PATH Gab Padron MD [facility] CPT-05338 Level 3 Est. Patient 16:19:11 CDT Yolande Linsday MD [facility] CPT-48627 Level 3 Est. Patient 18:59:14 CDT Yolande Lindsay MD [facility] CPT-74452 Level 4 Est. Patient 21:29:26 CDT Yolande Lindsay MD [facility] CPT-81686 Level 3 Est. Patient 07:37:45 CDT Yolande Lindsay MD [facility] CPT-66838 Level 3 Est. Patient 17:03:46 CDT Yolande Lindsay MD [facility] CPT-93210 Level 4 Est. Patient 20:02:13 LANGUAGE PATH Yolande Lindsay MD PhD [facility] CPT-40842 Level 3 Est. Patient 16:02:07 LANGUAGE PATH Alexis Ordaz MD [facility] CPT-90987 Level 3 Est. Patient 12:41:24 LANGUAGE PATH Yolande Lindsay MD PhD [facility] CPT-07420 Level 3 Est. Patient 15:41:20 LANGUAGE PATH Yolande Lindsay MD [facility] CPT-26396 Level 3 Est. Patient 13:20:02 LANGUAGE PATH Yolande Lindsay MD PhD [facility]-28909 Level 3 Est. Patient 15:00:38 CDT Jared Og MD [facility]-25073 Level 3 Est. Patient 10:22:32 CDT Yolande Lindsay MD [facility]-21036 Level 3 Est. Patient 17:12:58 CDT Yolande Lindsay MD [facility]-36846 Level 4 Est. Patient 13:30:58 CDT Yolande Lindsay MD [facility] CPT-61824 Level 4 New Patient 09:02:42 CDT Jared Og MD [facility]-57453 Level 3 Est. Patient 08:19:07 CDT Yolande Lindsay MD [facility]-89161 Level 3 Est. Patient 12:00:13 LANGUAGE PATH Gab Padron MD [facility]-37632 Level 3 Est. Patient 16:15:23 LANGUAGE PATH Yolande Lindsay MD [facility]-10135 Level 2 Est. Patient 19:47:15 CDT Yolande Lindsay MD [facility]-98726 Level 3 Est. Patient 21:38:31 CDT Yolande Lindsay MD [facility] CPT-19471 Level 3 Est. Patient 10:25:[address] [facility] CPT-29760 Level 4 Est. Patient 10:51:58 CDT Yolande Lindsay MD [facility]-61917 Level 3 Est. Patient 14:04:55 LANGUAGE PATH Rodrigo [facility]-74780 Level 3 Est. Patient 10:46:35 LANGUAGE PATH Rodrigo Sarah [facility] CPT-76180 Level 3 Est. Patient 14:24:37 LANGUAGE PATH Yolande Lindsay MD [facility] CPT-14601 Level 3 Est. Patient 17:41:58 LANGUAGE PATH Yolande Lindsay MD [facility]-05006 Level 2 Est. Patient 22:01:41 LANGUAGE PATH Rodrigo [facility]-13644 Level 2 Est. Patient 22:01:11 LANGUAGE PATH Rodrigo [facility]-29770 Level 3 Est. Patient 10:12:29 LANGUAGE PATH Rodrigo [facility]-14269 Level 3 Est. Patient 11:05:44 CDT Alexis Ordaz MD [facility]-13508 Level 3 Est. Patient 14:57:20 CDT Yolande Lindsay MD [facility] CPT-27345 Level 3 Est. Patient 14:40:57 CDT Yolande Lindsay MD [facility]-46825 Level 3 Est. Patient 20:55:40 CDT Yolande Lindsay MD [facility]-76462 Level 3 Est. Patient 12:42:38 LANGUAGE PATH Yolande Lindsay MD [facility]-49855 Level 3 Est. Patient 11:54:49 LANGUAGE PATH Des Hines MD [facility]-84492 Level 3 Est. Patient 17:06:[address] [facility] Procedures Code Procedure Name Date Entry Date Standard Description CPT-J1040 Depo Medrol 80 mg (Methyl Prednisolone Acetate) 10:51: 28 LANGUAGE PATH CPT-J1100 Decadron 8mg (Dexamethasone) 10:51:28 LANGUAGE PATH CPT-80815 Abx/Therapy Injection 10:51:28 LANGUAGE PATH [id number] Event Monitor - MC Transmission 09:12:32 CDT 08/06 [id number] Event Monitor - MC review and interp 09:12:32 CDT [id number] Event Monitor - MC recording 09:12:32 CDT CPT-91735 EKG Trac and Interp 16:50:22 CDT CPT-J1030 Depo Medrol 40 mg (Methyl Prednisolone Acetate) 17:05: 54 CDT CPT-J1100 Decadron 4mg (Dexamethasone) 17:05:54 CDT CPT-46784 Abx/Therapy Injection 17:05:54 CDT CPT-J1100 Decadron 4mg (Dexamethasone) 16:55:28 CDT CPT-J1030 Depo Medrol 40 mg (Methyl Prednisolone Acetate) 16:55: 28 CDT CPT-74358 Ankle Complete - Min 3V 15:58:50 CDT CPT-84746 Knee 3V 15:58:50 CDT CPT-12420 Hip comp min 2V 15:58:50 CDT CPT-J2270 Morphine Sulfate 10 mg 14:25:44 LANGUAGE PATH CPT-J2550 Phenergan 12.5 mg (Promethazine) 14:25:44 LANGUAGE PATH CPT-58888 Abx/Therapy Injection 14:25:44 LANGUAGE PATH CPT-J2550 Phenergan 12.5 mg (Promethazine) 14:08:03 LANGUAGE PATH CPT-J2270 Morphine Sulfate 10 mg 14:08:03 LANGUAGE PATH CPT-39420 Bladder Scan 15:00:38 CDT CPT-TCMM Transitional Care Mgmt-Moderate 09:52:22 CDT CPT-J1030 Depo Medrol 40 mg (Methyl Prednisolone Acetate) 10:55: 18 CDT CPT-J1100 Decadron 4mg (Dexamethasone) 10:55:18 CDT CPT-48286 Abx/Therapy Injection 10:55:18 CDT CPT-J1030 Depo Medrol 40 mg (Methyl Prednisolone Acetate) 10:22: 32 CDT CPT-J1100 Decadron 4mg (Dexamethasone) 10:22:32 CDT CPT-48090 Postop F/U Visit 14:37:13 CDT CPT-99413 Ankle Complete - Min 3V 17:11:58 CDT CPT-59895 Foot comp min 3V 17:11:58 CDT CPT-19842 Bladder Scan 09:56:58 CDT CPT-58089 Postop F/U Visit 09:56:58 CDT CPT-63425 Cystoscopy 09:02:42 CDT CPT-46587 Bladder Scan 09:02:42 CDT CPT-33711 Abd single AP View 16:00:35 CDT CPT-99459 Administration single or combination vaccine inc oral 10 :15:43 CDT CPT-02721 Influenza split virus > age 3 10:15:43 CDT CPT-62384 Nail Avulsion 09:24:57 CDT CPT-OV Office Visit 11:15:41 CDT CPT-25242 Abx/Therapy Injection 10:51:30 CDT CPT-J3301 Kenalog 40 mg (Triamcinolone Acetonide) 10:25:12 CDT CPT-J1100 Decadron 4mg (Dexamethasone) 10:25:12 CDT CPT-53391 Anoscopy diagnostic 10:36:12 CDT CPT-OV Office Visit 15:34:31 CDT CPT-35168 Abx/Therapy Injection 08:21:15 LANGUAGE PATH CPT-J1885 Toradol 60 mg (Ketorolac) 10:46:35 LANGUAGE PATH CPT-OV Office Visit 19:51:16 LANGUAGE PATH CPT-89126 Spec Collection and Handling Fee 14:34:18 LANGUAGE PATH CPT-PV Prev. Care Visit 14:19:18 LANGUAGE PATH CPT-41249 Postop F/U Visit 14:47:51 LANGUAGE PATH CPT-14057 Postop F/U Visit 15:15:14 LANGUAGE PATH CPT-45273 Postop F/U Visit 14:41:43 CDT CPT-08902 Postop F/U Visit 15:47:46 CDT CPT-OV Office Visit 15:27:23 CDT CPT-OV Office Visit 17:20:34 CDT CPT-88667 Abx/Therapy Injection 15:05:57 CDT CPT-J1100 Decadron 8mg (Dexamethasone) 14:44:57 CDT CPT-J1040 Depo Medrol 80 mg (Methyl Prednisolone Acetate) 14:44: 57 CDT CPT-JTINJ Joint Injection 10:17:37 CDT CPT-09867 Administration 2+ single or combination vaccines inc oral 13:01:46 LANGUAGE PATH CPT-69915 Administration single or combination vaccine inc oral 13 :01:46 LANGUAGE PATH CPT-74348 Pneumovax 13:01:46 LANGUAGE PATH CPT-40642 Influenza split virus > age 3 13:01:46 LANGUAGE PATH CPT-04518 Administration single or combination vaccine inc oral 08 :56:49 CDT CPT-36561 Tdap 08:56:49 CDT
--- OUTSIDE RECORDS SUMMARY | 2017-03-21 20:45 | XMS REPORT | Clinical Summary ---
Author Author Admin, E Organization [facility] Address Unknown Phone Unavailable Allergies, Adverse Reactions, Alerts Allergy Name Reaction Description Start Date Severity Status Provider VALENTIN Critical Active Rodrigo Fracharlottel PIPING DRAFTER CHLORHEXIDINE GLUCONATE tongue and gums swollen Critical Active Hoa Otto RMA NORFLEX Rash Critical Active Silvestrellina Frazell PIPING DRAFTER TRAZODONE HCL sees things Critical Active Dewayne [...] 1 tab by mouth twice daily TRIMETHOPRIM-SULFAMETHOXAZOLE 86134004582 Active Tisha Lambert APRN Active ADVAIR DISKUS 250-50 MCG/DOSE AEPB 1 puff BID FLUTICASONE-SALMETEROL 35080405850 No Longer Active Todd Callaway MD Active ONDANSETRON 4 MG TBDP 1 q4h PRN nausea ONDANSETRON 31373995276 No Longer Active LONNIE Iglesias Active FISH OIL 1000 MG CAPS 3 pills daily OMEGA-3 FATTY ACIDS 99262893700 No Longer Active LONNIE Iglesias Active CETIRIZINE HCL 10 MG ORAL TABS 1 po qd PRN Allergies CETIRIZINE HCL 90165057708 Active Gab Padron MD Active CLARITIN 10 MG TAB 1 tablet by mouth daily as needed for allergies LORATADINE 86374979180 No Longer Active Gab Padron MD Active PREDNISONE 20 MG TAB take 3 tabs daily for 3 days, 2 tabs daily for 3 days, 1 tab daily for 3 days, 1/2 tab daily for 3 days PREDNISONE 25478729847 No Longer Active Tisha Lambert APRN Active TRAMADOL HCL 50 MG TABS 1 tab po every 6 hrs prn pain TRAMADOL HCL 59081341578 Active Gab Padron MD Active PREDNISONE 20 MG TAB 2 tabs daily for 3 days, 1 tab daily for 3 days, 1/2 tab daily for 2 days PREDNISONE 20070829323 No Longer Active Gab Padron MD Active ZOFRAN ODT 4 MG TBDP 1 po q6hr PRN Nausea ONDANSETRON 39312932020 Active Gab Padron MD Active IBUPROFEN 600 MG TAB 1 tablet by mouth every 6 hours for 7 days, then 1 tablet every 6 hours as needed. Take with food IBUPROFEN 20293063627 Active Rodrigo Sarah APRN Active BACTRIM DS 800-160 MG TAB 1 tab by mouth twice daily TRIMETHOPRIM-SULFAMETHOXAZOLE 85171218134 No Longer Active Gab Padron MD Active LEVOTHYROXINE SODIUM 75 MCG TABS Take 1 tab daily LEVOTHYROXINE SODIUM 40824651535 No Longer Active Mariana Cuadra [facility] Active SYNTHROID 88 MCG ORAL TABS Take one by mouth daily LEVOTHYROXINE SODIUM 66388065769 Active Gab Padron MD Active CHERATUSSIN AC 100-10 MG/5ML SYRP 1 tsp by mouth every 4 hours as needed for cough GUAIFENESIN-CODEINE 44385786000 No Longer Active Gab Padron MD Active POLYTRIM 77170-8.1 UNIT/ML-% SOLN 1 gtt to affected eye q3h x 7 days POLYMYXIN B-TRIMETHOPRIM 77553372725 No Longer Active Gab Padron MD Active FLUTICASONE PROPIONATE 50 MCG/ACT SUSP 1 to 2 sprays each nostril daily 04/21 FLUTICASONE PROPIONATE 68846780698 No Longer Active Gab Padron MD Active TRILEPTAL 600 MG TABS Take one 1 tablet in Am and 1 tablet at night OXCARBAZEPINE 35369002565 Active Gab Padron MD Active CEFDINIR 300 MG CAPS 1 po BID x 10 days CEFDINIR 52367575415 No Longer Active Rodrigo Sarah APRN Active CEFTIN 500 MG TAB 1 twice a day CEFUROXIME AXETIL 55838185658 No Longer Active Gab Padron MD Active AZITHROMYCIN 250 MG TABS 2 po qd x 1 day, then 1 po qd x 4 days AZITHROMYCIN 23934453900 No Longer Active Rodrigo Sarah APRN Active OXYCODONE HCL 5 MG ORAL CAPS 1 TAB PO Q HS OXYCODONE HCL 61127399466 No Longer Active Rodrigo Sarah APRN Active NIASPAN 500 MG ORAL CR-TABS 1 pill nightly x 1 week, then 2 pills nightly x 1 week, then 3 pills nightly x 1 week, then 4 pills nightly NIACIN (ANTIHYPERLIPIDEMIC) 05725009426 No Longer Active Rodrigo Sarah APRN Active NIACIN 500 MG TABS 1 pill by mouth nightly x 1 week, then 2 pills x 1 week, then 3 pills x 1 week, then 4 pills nightly - take after evening meal, with applesauce or an apple NIACIN 33856393155 No Longer Active Yolande Lindsay MD PhD Active TRIAMCINOLONE ACETONIDE 0.1 % CREA apply bid sparingly to rash TRIAMCINOLONE ACETONIDE 04233525691 Active Yolande Lindsay MD PhD Active FUROSEMIDE 20 MG TAB 1 tablet by mouth daily FUROSEMIDE 16151923484 Active Gab Padron MD Active LISINOPRIL 20 MG ORAL TABS 1 tab by mouth daily LISINOPRIL 84868139404 Active Gab Padron MD Active FUROSEMIDE 20 MG TABS 1 pill by mouth daily, for edema FUROSEMIDE 46940604383 No Longer Active Yolande Lindsay MD PhD Active ATORVASTATIN CALCIUM 10 MG TABS 1 pill by mouth daily, for cholesterol 09/06 ATORVASTATIN CALCIUM 81695615133 Active Gab Padron MD Active CALCIUM 600+D PLUS MINERALS 600-400 MG-UNIT ORAL CHEW 1 tab by mouth daily CALCIUM CARBONATE-VIT D-MIN 68155824403 No Longer Active Yoalnde Lindsay MD PhD Active CYCLOBENZAPRINE HCL 10 MG TABS 1 tablet by mouth three times daily as needed for muscle spasm/pain CYCLOBENZAPRINE HCL 84186136250 Active Yolande Lindsay MD PhD Active ADULT ASPIRIN EC LOW STRENGTH 81 MG TBEC Take 1 tablet by mouth daily 2014 ASPIRIN 65748660537 No Longer Active Yolande Lindsay MD PhD Active ZOFRAN ODT 4 MG TBDP 1 pill dissolved by mouth every 4 hours if needed for nausea ONDANSETRON 30153633952 No Longer Active Yolande Lindsay MD PhD Active CEFTIN 500 MG TAB 1 twice a day CEFUROXIME AXETIL 47947507229 No Longer Active Yolande Lindsay MD PhD Active ALBUTEROL SULFATE 0.083 % NEBU SOLN one vial per nebulizer every 4-6 hours as needed ALBUTEROL SULFATE 76876181535 No Longer Active Alexis Ordaz MD Active DOXYCYCLINE HYCLATE 100 MG CAP 1 cap by mouth twice daily DOXYCYCLINE HYCLATE 69218036532 No Longer Active Yolande Lindsay MD PhD Active CYCLOBENZAPRINE HCL 10 MG TABS 1/2 - 1 tab by mouth three times daily if needed for spasms/pain CYCLOBENZAPRINE HCL 01147977341 No Longer Active Yolande Lindsay MD PhD Active AZITHROMYCIN 250 MG TABS 2 pills on day 1, then 1 pill daily x 4 days AZITHROMYCIN 71500457758 No Longer Active Yolande Lindsay MD PhD Active XOPENEX 1.25 MG/3ML NEBU 1 neb every 4 hours if needed for cough/congestion LEVALBUTEROL HCL 69802609756 No Longer Active Yolande Lindsay MD PhD Active DOXYCYCLINE HYCLATE 100 MG TAB 1 tab twice a day for 14 days 2013 DOXYCYCLINE HYCLATE 17255071699 No Longer Active Yolande Lindsay MD PhD Active PREVACID 30 MG CPDR Take 1 tablet by mouth daily-PRN LANSOPRAZOLE 04919894441 No Longer Active Yolande Lindsay MD PhD Active PA VITAMIN D-3 2000 UNIT CAPS 1 CAP PO DAILY CHOLECALCIFEROL 27678688867 No Longer Active Yolande Lindsay MD PhD Active CEFDINIR 300 MG CAPS by mouth twice a day CEFDINIR 87259328339 No Longer Active Gab Padron MD Active TOPAMAX 50 MG TABS 1 PO twice daily TOPIRAMATE 85469804380 Active Yolande Lindsay MD PhD Active AZITHROMYCIN 250 MG TABS 2 po qd x 1 day, then 1 po qd x 4 days AZITHROMYCIN 80623456710 No Longer Active Yolande Lindsay MD PhD Active DICLOFENAC SODIUM 75 MG TBEC 1 tablet by q 12 hours PRN headaches DICLOFENAC SODIUM 99178046153 No Longer Active Yolande Lindsay MD PhD Active FLONASE 50 MCG/ACT SUSP 1 spray each nostril am and hs FLUTICASONE PROPIONATE 60456268992 No Longer Active Todd Callaway MD Active ANUSOL-HC 25 MG SUPPOSITORY 1 rectally twice a day as needed for hemorrhoids HYDROCORTISONE JAYDEN (RECTAL) 64779100140 No Longer Active Yolande Lindsay MD PhD Active ANUSOL-HC 25 MG SUPPOSITORY 1 suppository rectally each evening as needed for anal fissure HYDROCORTISONE JAYDEN (RECTAL) 15623220899 No Longer Active LONNIE Iglesias Active VALIUM 5 MG TAB 1 po 30 minutes prior to your MRI DIAZEPAM 01038452491 No Longer Active LONNIE Iglesias Active METHOCARBAMOL 750 MG TABS 1 PO QID PRN METHOCARBAMOL 28141462650 No Longer Active Daphne Wetzel APRN Active NITROSTAT 0.4 MG SUBL as directed NITROGLYCERIN 50080597665 No Longer Active Rodrigo Sarah APRN Active ROBAXIN-750 750 MG TABS 2 four times a day for 3 days as needed for muscle spasm, then 1 four times a day as needed METHOCARBAMOL 92805375579 No Longer Active Rodrigo Sarah APRN Active HYDROCODONE-ACETAMINOPHEN 5-325 MG TABS 1 q 4-6 hrs prn HYDROCODONE-ACETAMINOPHEN 72973037235 No Longer Active Rodrigo Sarah PIPING DRAFTER Active VERAPAMIL HCL CR 180 MG CR-TABS TAKE 1 TAB DAILY VERAPAMIL HCL 02442905743 No Longer Active Yolande Lindsay MD PhD Active BACTRIM DS 800-160 MG TAB 1 tab by mouth twice daily TRIMETHOPRIM-SULFAMETHOXAZOLE 16372118470 No Longer Active Yolande Lindsay MD PhD Active NEXIUM 40 MG PACK 1 by mouth daily ESOMEPRAZOLE MAGNESIUM 10176519186 No Longer Active Des Hines MD Active EPIPEN 2-CHARLETTE 0.3 MG/0.3ML OMARI as need for allergic reaction EPINEPHRINE 63378261672 Active Yolande Lindsay MD PhD Active NEXIUM 40 MG CPDR 1 PO Q D DAY ESOMEPRAZOLE MAGNESIUM 26953230887 No Longer Active Sadia Perry RN Active NEXIUM 40 MG PACK 1 by mouth daily NEXIUM 40 MG PACK ESOMEPRAZOLE MAGNESIUM Inactive VERAPAMIL HCL CR 180 MG CR-TABS TAKE 1 TAB DAILY VERAPAMIL HCL CR 180 MG CR-TABS VERAPAMIL HCL Inactive HYDROCODONE-ACETAMINOPHEN 5-325 MG TABS 1 q 4-6 hrs prn HYDROCODONE-ACETAMINOPHEN 5-325 MG TABS 016475 HYDROCODONE-ACETAMINOPHEN Inactive ROBAXIN-750 750 MG TABS 2 four times a day for 3 days as needed for muscle spasm, then 1 four times a day as needed ROBAXIN-750 750 MG TABS 179052 METHOCARBAMOL Inactive NITROSTAT 0.4 MG SUBL as directed NITROSTAT 0.4 MG SUBL 686597 NITROGLYCERIN Inactive METHOCARBAMOL 750 MG TABS 1 PO QID PRN METHOCARBAMOL 750 MG TABS 595927 METHOCARBAMOL Inactive VALIUM 5 MG TAB 1 po 30 minutes prior to your MRI VALIUM 5 MG TAB 135782 DIAZEPAM Inactive ANUSOL-HC 25 MG SUPPOSITORY 1 suppository rectally each evening as needed for anal fissure ANUSOL-HC 25 MG SUPPOSITORY 3032144 HYDROCORTISONE JAYDEN (RECTAL) Inactive ANUSOL-HC 25 MG SUPPOSITORY 1 rectally twice a day as needed for hemorrhoids ANUSOL-HC 25 MG SUPPOSITORY 9135727 HYDROCORTISONE JAYDEN (RECTAL) Inactive FLONASE 50 MCG/ACT SUSP 1 spray each nostril am and hs FLONASE 50 MCG/ACT SUSP 0044996 FLUTICASONE PROPIONATE Inactive DICLOFENAC SODIUM 75 MG TBEC 1 tablet by q 12 hours PRN headaches DICLOFENAC SODIUM 75 MG TBEC 679532 DICLOFENAC SODIUM Inactive PA VITAMIN D-3 2000 UNIT CAPS 1 CAP PO DAILY PA VITAMIN D-3 2000 UNIT CAPS CHOLECALCIFEROL Inactive PREVACID 30 MG CPDR Take 1 tablet by mouth daily-PRN PREVACID 30 MG CPDR 004568 LANSOPRAZOLE Inactive DOXYCYCLINE HYCLATE 100 MG TAB 1 tab twice a day for 14 days 2013 DOXYCYCLINE HYCLATE 100 MG TAB 3969101 DOXYCYCLINE HYCLATE Inactive XOPENEX 1.25 MG/3ML NEBU 1 neb every 4 hours if needed for cough/congestion XOPENEX 1.25 MG/3ML NEBU 608078 LEVALBUTEROL HCL Inactive CYCLOBENZAPRINE HCL 10 MG TABS 1/2 - 1 tab by mouth three times daily if needed for spasms/pain CYCLOBENZAPRINE HCL 10 MG TABS 650044 CYCLOBENZAPRINE HCL Inactive ALBUTEROL SULFATE 0.083 % NEBU SOLN one vial per nebulizer every 4-6 hours as needed ALBUTEROL SULFATE 0.083 % NEBU SOLN 728067 ALBUTEROL SULFATE Inactive CEFTIN 500 MG TAB 1 twice a day CEFTIN 500 MG TAB 523075 CEFUROXIME AXETIL Inactive ZOFRAN ODT 4 MG TBDP 1 pill dissolved by mouth every 4 hours if needed for nausea ZOFRAN ODT 4 MG TBDP 148375 ONDANSETRON Inactive ADULT ASPIRIN EC LOW STRENGTH 81 MG TBEC Take 1 tablet by mouth daily 2014 ADULT ASPIRIN EC LOW STRENGTH 81 MG TBEC 404753 ASPIRIN Inactive CALCIUM 600+D PLUS MINERALS 600-400 [...] or an apple NIACIN 500 MG TABS 709783 NIACIN Inactive NIASPAN 500 MG ORAL CR-TABS 1 pill nightly x 1 week, then 2 pills nightly x 1 week, then 3 pills nightly x 1 week, then 4 pills nightly NIASPAN 500 MG ORAL CR-TABS NIACIN (ANTIHYPERLIPIDEMIC) Inactive OXYCODONE HCL 5 MG ORAL CAPS 1 TAB PO Q HS OXYCODONE HCL 5 MG ORAL CAPS 2859393 OXYCODONE HCL Inactive FLUTICASONE PROPIONATE 50 MCG/ACT SUSP 1 to 2 sprays each nostril daily 04/21 FLUTICASONE PROPIONATE 50 MCG/ACT SUSP 0524303 FLUTICASONE PROPIONATE Inactive POLYTRIM 62637-1.1 UNIT/ML-% SOLN 1 gtt to affected eye q3h x 7 days POLYTRIM 11782-7.1 UNIT/ML-% SOLN 603542 POLYMYXIN B- TRIMETHOPRIM Inactive CHERATUSSIN AC 100-10 MG/5ML SYRP 1 tsp by mouth every 4 hours as needed for cough CHERATUSSIN AC 100-10 MG/5ML SYRP 024937 GUAIFENESIN-CODEINE Inactive LEVOTHYROXINE SODIUM 75 MCG TABS Take 1 tab daily LEVOTHYROXINE SODIUM 75 MCG TABS 349458 LEVOTHYROXINE SODIUM Inactive CLARITIN 10 MG TAB 1 tablet by mouth daily as needed for allergies CLARITIN 10 MG TAB 744244 LORATADINE Inactive FISH OIL 1000 MG CAPS 3 pills daily FISH OIL 1000 MG CAPS OMEGA-3 FATTY ACIDS Inactive ONDANSETRON 4 MG TBDP 1 q4h PRN nausea ONDANSETRON 4 MG TBDP 983428 ONDANSETRON Inactive ADVAIR DISKUS 250-50 MCG/DOSE AEPB 1 puff BID ADVAIR DISKUS 250-50 MCG/DOSE AEPB FLUTICASONE-SALMETEROL Inactive BACTRIM DS 800-160 MG TAB 1 tab by mouth twice daily BACTRIM DS 800-160 MG TAB 730228 TRIMETHOPRIM-SULFAMETHOXAZOLE Inactive AZITHROMYCIN 250 MG TABS 2 po qd x 1 day, then 1 po qd x 4 days AZITHROMYCIN 250 MG TABS 6790228 AZITHROMYCIN Inactive CEFDINIR 300 MG CAPS by mouth twice a day CEFDINIR 300 MG CAPS 944629 CEFDINIR Inactive AZITHROMYCIN 250 MG TABS 2 pills on day 1, then 1 pill daily x 4 days AZITHROMYCIN 250 MG TABS 7115309 AZITHROMYCIN Inactive DOXYCYCLINE HYCLATE 100 MG CAP 1 cap by mouth twice daily DOXYCYCLINE HYCLATE 100 MG CAP 7400033 DOXYCYCLINE HYCLATE Inactive FUROSEMIDE 20 MG TABS 1 pill by mouth daily, for edema FUROSEMIDE 20 MG TABS 774508 FUROSEMIDE Inactive AZITHROMYCIN 250 MG TABS 2 po qd x 1 day, then 1 po qd x 4 days AZITHROMYCIN 250 MG TABS 7369759 AZITHROMYCIN Inactive CEFTIN 500 MG TAB 1 twice a day CEFTIN 500 MG TAB 455343 CEFUROXIME AXETIL Inactive CEFDINIR 300 MG CAPS 1 po BID x 10 days CEFDINIR 300 MG CAPS 558871 CEFDINIR Inactive BACTRIM DS 800-160 MG TAB 1 tab by mouth twice daily BACTRIM DS 800-160 MG TAB 438132 TRIMETHOPRIM-SULFAMETHOXAZOLE Inactive PREDNISONE 20 MG TAB 2 tabs daily for 3 days, 1 tab daily for 3 days, 1/2 tab daily for 2 days PREDNISONE 20 MG TAB 358856 PREDNISONE Inactive PREDNISONE 20 MG TAB take 3 tabs daily for 3 days, 2 tabs daily for 3 days, 1 tab daily for 3 days, 1/2 tab daily for 3 days PREDNISONE 20 MG TAB 652019 PREDNISONE Inactive Immunizations Vaccine Administration Date Value Standard Description Seasonal influenza vaccine, injectable, containing preservative, for > 3 years old (Afluria, FluLaval, Fluzone, Fluvirin, Fluarix, Agriflu(>=18 yo)) Fluzone (>3 yrs.) [NJE176] Influenza, seasonal, injectable influenza immunization (Flu Vax) has been administered Influenza - Unspecified Formulation [CVX88] influenza virus vaccine, unspecified formulation Seasonal influenza vaccine, injectable, containing preservative, for > 3 years old (Afluria, FluLaval, Fluzone, Fluvirin, Fluarix, Agriflu(>=18 yo)) Fluzone (>3 yrs.) [OSL632] Influenza, seasonal, injectable pneumococcal immunization administered Pneumovax 23 [CVX33] pneumococcal polysaccharide vaccine, 23 valent dT (Diphtheria and Tetanus) booster given given Td(adult) unspecified formulation Boostrix (Tetanus toxoid, reduced diphtheria toxoid and acellular pertussis vaccine, adsorbed), booster Boostrix [VQJ729] tetanus toxoid, reduced diphtheria toxoid, and acellular [...] PANEL - Chemistry cholesterol, serum 166 mg/dL 293-097 0142/12/06 triglyceride, serum, fasting 86 mg/dL 30-200 HDL cholesterol, serum 62 mg/dL 32-96 LDL cholesterol, serum 87 mg/dL 0-130 aspartate aminotransferase (SGOT), serum 18 U/L 15-37 alanine aminotransferase (SGPT), serum 29 U/L - bilirubin, serum, total 0.20 mg/dL 0.00-1.00 Lab [...] Negative mg/dL Negative sodium, serum 142 mmol/L 502-972 5134/07/18 carbon dioxide, venous blood 27.8 mmol/L 21.0-32.0 potassium, serum 4.1 mmol/L 3.5-5.2 chloride, serum 107 mmol/L 98-107 blood glucose 91 mg/dL 65-110 urea nitrogen, blood 19 mg/dL 7-18 creatinine, serum 1.28 mg/dL 0.55-1.30 alanine aminotransferase (SGPT), serum 31 U/L aspartate aminotransferase (SGOT), serum 25 U/L - calcium, serum 8.8 mg/dL 8.5-10.1 bilirubin, serum, [...] negative Encounters Code Encounter Date Provider Facility CPT-61772 Level 3 Est. Patient 14:46:09 CDT Tisha Lambert APRN [facility] CPT-71937 Level 4 New Patient 16:13:15 CDT Todd Callaway MD [facility] CPT-24649 Level 4 Est. Patient 13:18:33 CDT Gab Padron MD [facility] CPT-37037 Level 3 Est. Patient 15:20:50 CDT Jared Og MD [facility] CPT-16209 Level 3 Est. Patient 17:43:55 METALLURGIST PROCESS Gab Padron MD [facility] CPT-70780 Level 3 Est. Patient 17:07:49 METALLURGIST PROCESS Jared Og MD [facility] CPT-58258 Level 4 Est. Patient 19:55:18 METALLURGIST PROCESS Jared Og MD [facility] CPT-16381 Level 3 Est. Patient 20:13:34 METALLURGIST PROCESS Jared Og MD [facility] CPT-10881 Level 4 Est. Patient 16:31:27 CDT Gab Padron MD [facility] CPT-87635 Level 2 Est. Patient 12:23:38 CDT Jared Og MD [facility] CPT-58943 Level 3 Est. Patient 11:01:51 CDT Gab Padron MD [facility] CPT-87213 Level 3 Est. Patient 15:27:02 CDT Jared Og MD [facility] [place] CPT-51163 Level 4 Est. Patient 09:25:27 CDT Gab Padron MD [facility] CPT-32770 Level 3 Est. Patient 10:29:41 CDT Rodrigo Sarah Formerly named [facility] CPT-88156 Level 4 Est. Patient 17:51:05 CDT Gab Padron MD [facility] CPT-65481 Level 3 Est. Patient 14:18:08 CDT Gab Padron MD [facility] CPT-41234 Level 4 Est. Patient 10:18:54 CDT Gab Padron MD [facility] CPT-12114 Level 3 Est. Patient 11:30:07 CDT Rodrigo Sarah Formerly named [facility] CPT-86091 Level 4 Est. Patient 21:02:30 METALLURGIST PROCESS Gab Padron MD [facility] CPT-93639 Level 3 Est. Patient 11:02:19 METALLURGIST PROCESS Gab Padron MD [facility]-75006 Level 4 Est. Patient 22:24:31 METALLURGIST PROCESS Gab Padron MD [facility] CPT-72816 Level 3 Est. Patient 18:33:46 METALLURGIST PROCESS Gab Padron MD [facility]-65932 Level 3 Est. Patient 16:19:11 CDT Yolande Lindsay MD [facility]-73077 Level 3 Est. Patient 18:59:14 CDT Yolande Lindsay MD [facility] named [facility]-82380 Level 4 Est. Patient 21:29:26 CDT Yolande Lindsay MD [facility]-07261 Level 3 Est. Patient 07:37:45 CDT Yolande Lindsay MD [facility]-36685 Level 3 Est. Patient 17:03:46 CDT Yolande Lindsay MD [facility]-25688 Level 4 Est. Patient 20:02:13 METALLURGIST PROCESS Yolande Lindsay MD [facility] CPT-82386 Level 3 Est. Patient 16:02:07 METALLURGIST PROCESS Alexis Ordaz MD [facility]-38687 Level 3 Est. Patient 12:41:24 METALLURGIST PROCESS Yolande Lindsay MD [facility] CPT-46712 Level 3 Est. Patient 15:41:20 METALLURGIST PROCESS Yolande Lindsay MD [facility]-76913 Level 3 Est. Patient 13:20:02 METALLURGIST PROCESS Yolande Lindsay MD [facility] CPT-85652 Level 3 Est. Patient 15:00:38 CDT Jared Og MD [facility]-46228 Level 3 Est. Patient 10:22:32 CDT Yolande Lindsay MD [facility] named [facility]-62198 Level 3 Est. Patient 17:12:58 CDT Yolande Lindsay MD [facility] named [facility]-01325 Level 4 Est. Patient 13:30:58 CDT Yolande Lindsay MD [facility] named [facility]-97336 Level 4 New Patient 09:02:42 CDT Jared Og MD [facility]-31507 Level 3 Est. Patient 08:19:07 CDT Yolande Lindsay MD Former[facility] named [facility]-66308 Level 3 Est. Patient 12:00:13 METALLURGIST PROCESS Gab Padron MD [facility]-91702 Level 3 Est. Patient 16:15:23 METALLURGIST PROCESS Yolande Lindsay MD Former[facility] named [facility]-78030 Level 2 Est. Patient 19:47:15 CDT Yolande Lindsay MD [facility] named [facility]-56133 Level 3 Est. Patient 21:38:31 CDT Yolande Lindsay MD [facility] named [facility]-43487 Level 3 Est. Patient 10:25:12 CDT Adiel PERAZA [facility]-70296 Level 4 Est. Patient 10:51:58 CDT Yolande Lindsay MD [facility] named [facility]-62469 Level 3 Est. Patient 14:04:55 METALLURGIST PROCESS Rodrigo Sarah [facility]-43040 Level 3 Est. Patient 10:46:35 METALLURGIST PROCESS Rodrigo Sarah [facility]-29532 Level 3 Est. Patient 14:24:37 METALLURGIST PROCESS Yolande Lindsay MD [facility] named [facility]-55452 Level 3 Est. Patient 17:41:58 METALLURGIST PROCESS Yolande Lindsay MD PhD [facility] CPT-09500 Level 2 Est. Patient 22:01:41 METALLURGIST PROCESS Rodrigo Sarah [facility] CPT-88886 Level 2 Est. Patient 22:01:11 METALLURGIST PROCESS Rodrigo Sarah [facility] CPT-41943 Level 3 Est. Patient 10:12:29 METALLURGIST PROCESS Rodrigo Sarah [facility] CPT-92566 Level 3 Est. Patient 11:05:44 CDT Alexis Ordaz MD [facility] CPT-56123 Level 3 Est. Patient 14:57:20 CDT Yolande Lindsay MD [facility] named [facility]-49281 Level 3 Est. Patient 14:40:57 CDT Yolande Lindsay MD [facility]-02589 Level 3 Est. Patient 20:55:40 CDT Yolande Lindsay MD [facility] CPT-76864 Level 3 Est. Patient 12:42:38 METALLURGIST PROCESS Yolande Lindsay MD [facility]-71911 Level 3 Est. Patient 11:54:49 METALLURGIST PROCESS Des Hines MD [facility] CPT-02545 Level 3 Est. Patient 17:06:38 CDT Dewayne PERAZA [facility] Procedures Code Procedure Name Date Entry Date Standard Description CPT-J2930 Solu Medrol 125 mg (Methyl Prednisolone Sodium Succinate) 13:19:02 CDT CPT-94260 Abx/Therapy Injection 13:19:02 CDT CPT-J2930 Solu Medrol 125 mg (Methyl Prednisolone Sodium Succinate) 13:05:03 CDT CPT-95871 Hip, complete, 2-3 views - XRAY USE ONLY 17:19:04 METALLURGIST PROCESS CPT-69820 Venipuncture Draw Fee 08:37:59 METALLURGIST PROCESS CPT-16816 Liver Profile - LAB USE ONLY 08:37:59 METALLURGIST PROCESS CPT-01846 Lipid - LAB USE ONLY 08:37:58 METALLURGIST PROCESS CPT-04453 First Vx - Ix admin via ID IM or jet injects without counseling by physician 11:52:31 CDT CPT-76992 Fluzone Preservative Free Intramuscular Suspension 11:52 :31 CDT CPT-72048 Foot, left, comp min 3V - XRAY USE ONLY 09:24:54 CDT CPT-38502 Abd single AP View - XRAY USE ONLY 11:16:17 CDT CPT-81234 T spine AP/ Lat - XRAY USE ONLY 09:34:21 CDT CPT-48760 Chest 2V Frontal and Lat - XRAY USE ONLY 10:48:51 CDT CPT-14309 LS spine comp w obliq 13:28:00 METALLURGIST PROCESS CPT-J1040 Depo Medrol 80 mg (Methyl Prednisolone Acetate) 10:51: 28 METALLURGIST PROCESS CPT-J1100 Decadron 8mg (Dexamethasone) 10:51:28 METALLURGIST PROCESS CPT-91465 Abx/Therapy Injection 10:51:28 METALLURGIST PROCESS CPT-J1100 Decadron 8mg (Dexamethasone) 21:02:30 METALLURGIST PROCESS CPT-J1040 Depo Medrol 80 mg (Methyl Prednisolone Acetate) 21:02: 30 METALLURGIST PROCESS [id number] Event Monitor - MC Transmission 09:12:32 CDT 08/06 [id number] Event Monitor - MC review and interp 09:12:32 CDT [id number] Event Monitor - MC recording 09:12:32 CDT CPT-86059 EKG Trac and Interp 16:50:22 CDT CPT-J1030 Depo Medrol 40 mg (Methyl Prednisolone Acetate) 17:05: 54 CDT CPT-J1100 Decadron 4mg (Dexamethasone) 17:05:54 CDT CPT-54073 Abx/Therapy Injection 17:05:54 CDT CPT-J1100 Decadron 4mg (Dexamethasone) 16:55:28 CDT CPT-J1030 Depo Medrol 40 mg (Methyl Prednisolone Acetate) 16:55: 28 CDT CPT-88220 Ankle Complete - Min 3V 15:58:50 CDT CPT-21082 Knee 3V 15:58:50 CDT CPT-61909 Hip comp min 2V 15:58:50 CDT CPT-J2270 Morphine Sulfate 10 mg 14:25:44 METALLURGIST PROCESS CPT-J2550 Phenergan 12.5 mg (Promethazine) 14:25:44 METALLURGIST PROCESS CPT-33797 Abx/Therapy Injection 14:25:44 METALLURGIST PROCESS CPT-J2550 Phenergan 12.5 mg (Promethazine) 14:08:03 METALLURGIST PROCESS CPT-J2270 Morphine Sulfate 10 mg 14:08:03 METALLURGIST PROCESS CPT-98977 Bladder Scan 15:00:38 CDT CPT-TCMM Transitional Care Mgmt-Moderate 09:52:22 CDT CPT-J1030 Depo Medrol 40 mg (Methyl Prednisolone Acetate) 10:55: 18 CDT CPT-J1100 Decadron 4mg (Dexamethasone) 10:55:18 CDT CPT-98065 Abx/Therapy Injection 10:55:18 CDT CPT-J1030 Depo Medrol 40 mg (Methyl Prednisolone Acetate) 10:22: 32 CDT CPT-J1100 Decadron 4mg (Dexamethasone) 10:22:32 CDT CPT-69283 Postop F/U Visit 14:37:13 CDT CPT-50035 Ankle Complete - Min 3V 17:11:58 CDT CPT-28046 Foot comp min 3V 17:11:58 CDT CPT-70259 Bladder Scan 09:56:58 CDT CPT-07767 Postop F/U Visit 09:56:58 CDT CPT-90387 Cystoscopy 09:02:42 CDT CPT-76606 Bladder Scan 09:02:42 CDT CPT-08478 Abd single AP View 16:00:35 CDT CPT-45107 Administration single or combination vaccine inc oral 10 :15:43 CDT CPT-96002 Influenza split virus > age 3 10:15:43 CDT CPT-56605 Nail Avulsion 09:24:57 CDT CPT-OV Office Visit 11:15:41 CDT CPT-48153 Abx/Therapy Injection 10:51:30 CDT CPT-J3301 Kenalog 40 mg (Triamcinolone Acetonide) 10:25:12 CDT CPT-J1100 Decadron 4mg (Dexamethasone) 10:25:12 CDT CPT-36161 Anoscopy diagnostic 10:36:12 CDT CPT-OV Office Visit 15:34:31 CDT CPT-52728 Abx/Therapy Injection 08:21:15 METALLURGIST PROCESS CPT-J1885 Toradol 60 mg (Ketorolac) 10:46:35 METALLURGIST PROCESS CPT-OV Office Visit 19:51:16 METALLURGIST PROCESS CPT-62375 Spec Collection and Handling Fee 14:34:18 METALLURGIST PROCESS CPT-PV Prev. Care Visit 14:19:18 METALLURGIST PROCESS CPT-34665 Postop F/U Visit 14:47:51 METALLURGIST PROCESS CPT-61666 Postop F/U Visit 15:15:14 METALLURGIST PROCESS CPT-38044 Postop F/U Visit 14:41:43 CDT CPT-17820 Postop F/U Visit 15:47:46 CDT CPT-OV Office Visit 15:27:23 CDT CPT-OV Office Visit 17:20:34 CDT CPT-69094 Abx/Therapy Injection 15:05:57 CDT CPT-J1100 Decadron 8mg (Dexamethasone) 14:44:57 CDT CPT-J1040 Depo Medrol 80 mg (Methyl Prednisolone Acetate) 14:44: 57 CDT CPT-JTINJ Joint Injection 10:17:37 CDT CPT-07550 Administration 2+ single or combination vaccines inc oral 13:01:46 METALLURGIST PROCESS CPT-68683 Administration single or combination vaccine inc oral 13 :01:46 METALLURGIST PROCESS CPT-51232 Pneumovax 13:01:46 METALLURGIST PROCESS CPT-94452 Influenza split virus > age 3 13:01:46 METALLURGIST PROCESS CPT-09813 Administration single or combination vaccine inc oral 08 :56:49 CDT CPT-99330 Tdap 08:56:49 CDT
--- OUTSIDE RECORDS SUMMARY | 2017-03-21 20:46 | XMS REPORT | Clinical Summary ---
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 Yolnade Lindsay MD PhD Other disorders of coccyx [...] Asthma, unspecified Flank pain 789.09 Resolved Yolande Lnidsay MD PhD Abdominal pain, other [...] MD Lumbago Cough 786.2 Active Rodrigo Sarah ENAMEL BUFFER Cough 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 Rodrigo Sarah APRN 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 Anemia 285.9 Active Gab Padron MD Anemia, unspecified FOOT PAIN, RIGHT ICD-729.5 Inactive Yolande Lnidsay MD PhD ANKLE PAIN, RIGHT ICD-719.47 Inactive [...] Generic Name NDC Status Provider Patient Instruction CHERATUSSIN AC 100-10 MG/5ML SYRP 1 tsp by mouth every 4 hours as needed for cough GUAIFENESIN-CODEINE 06878234684 Active Gab Padron MD Active CEFTIN 500 MG TAB 1 twice a day CEFUROXIME AXETIL 47942924081 Active Gab Padron MD Active AZITHROMYCIN 250 MG TABS 2 po qd x 1 day, then 1 po qd x 4 days AZITHROMYCIN 90966245777 No Longer Active Rodrigo Sarah APRN Active CLARITIN 10 MG TAB 1 tablet by mouth daily as needed for allergies LORATADINE 37018902684 Active Rodrigo Sarah APRN Active OXYCODONE HCL 5 MG ORAL CAPS 1 TAB PO Q HS OXYCODONE HCL 91259096297 No Longer Active Rodrigo Sarah APRN Active NIASPAN 500 MG ORAL CR-TABS 1 pill nightly x 1 week, then 2 pills nightly x 1 week, then 3 pills nightly x 1 week, then 4 pills nightly NIACIN (ANTIHYPERLIPIDEMIC) 78328799174 No Longer Active Rodrigo Sarah APRN Active NIACIN 500 MG TABS 1 pill by mouth nightly x 1 week, then 2 pills x 1 week, then 3 pills x 1 week, then 4 pills nightly - take after evening meal, with applesauce or an apple NIACIN 30777888962 No Longer Active Yolande Lindsay MD PhD Active FISH OIL 1000 MG CAPS 3 pills daily OMEGA-3 FATTY ACIDS 13570295079 Active Yolande Lindsay MD PhD Active TRIAMCINOLONE ACETONIDE 0.1 % CREA apply bid sparingly to rash TRIAMCINOLONE ACETONIDE 46172667362 Active Yolande Lindsay MD PhD Active FUROSEMIDE 20 MG TAB 1 tablet by mouth daily FUROSEMIDE 71753155815 Active Yolande Lindsay MD PhD Active LISINOPRIL 20 MG ORAL TABS 1 tab by mouth daily LISINOPRIL 62729063862 Active Yolande Lindsay MD PhD Active FUROSEMIDE 20 MG TABS 1 pill by mouth daily, for edema FUROSEMIDE 72254872961 No Longer Active Yolande Lindsay MD PhD Active ATORVASTATIN CALCIUM 10 MG TABS 1 pill by mouth daily, for cholesterol 09/06 ATORVASTATIN CALCIUM 33064348782 Active Yolande Lindsay MD PhD Active CALCIUM 600+D PLUS MINERALS 600-400 MG-UNIT ORAL CHEW 1 tab by mouth daily CALCIUM CARBONATE-VIT D-MIN 91776765440 No Longer Active Yolande Lindsay MD PhD Active CYCLOBENZAPRINE HCL 10 MG TABS 1 tablet by mouth three times daily as needed for muscle spasm/pain CYCLOBENZAPRINE HCL 29530060090 Active Yolande Lindsay MD PhD Active ONDANSETRON 4 MG TBDP 1 q4h PRN nausea ONDANSETRON 27631914487 Active Yolande Lindsay MD PhD Active ADULT ASPIRIN EC LOW STRENGTH 81 MG TBEC Take 1 tablet by mouth daily 2014 ASPIRIN 10832124934 No Longer Active Yolande Lindsay MD PhD Active ZOFRAN ODT 4 MG TBDP 1 pill dissolved by mouth every 4 hours if needed for nausea ONDANSETRON 68592438788 No Longer Active Yolande Lindsay MD PhD Active CEFTIN 500 MG TAB 1 twice a day CEFUROXIME AXETIL 94195808258 No Longer Active Yolande Lindsay MD PhD Active ALBUTEROL SULFATE 0.083 % NEBU SOLN one vial per nebulizer every 4-6 hours as needed ALBUTEROL SULFATE 06450449017 No Longer Active Alexis Ordaz MD Active DOXYCYCLINE HYCLATE 100 MG CAP 1 cap by mouth twice daily DOXYCYCLINE HYCLATE 37523184303 No Longer Active Yolande Lindsay MD PhD Active CYCLOBENZAPRINE HCL 10 MG TABS 1/2 - 1 tab by mouth three times daily if needed for spasms/pain CYCLOBENZAPRINE HCL 39385146712 No Longer Active Yolande Lindsay MD PhD Active TRILEPTAL 600 MG TABS Take one 1/2 tablet in Am and 1 tablet at night OXCARBAZEPINE 81304443979 Active Yolande Lindsay MD PhD Active AZITHROMYCIN 250 MG TABS 2 pills on day 1, then 1 pill daily x 4 days AZITHROMYCIN 88461103940 No Longer Active Yolande Lindsay MD PhD Active XOPENEX 1.25 MG/3ML NEBU 1 neb every 4 hours if needed for cough/congestion LEVALBUTEROL HCL 45554852978 No Longer Active Yolande Lindsay MD PhD Active DOXYCYCLINE HYCLATE 100 MG TAB 1 tab twice a day for 14 days 2013 DOXYCYCLINE HYCLATE 54709176695 No Longer Active Yolande Lindsay MD PhD Active LEVOTHYROXINE SODIUM 75 MCG TABS Take 1 tab daily LEVOTHYROXINE SODIUM 36156294306 Active Yolande Lindsay MD PhD Active PREVACID 30 MG CPDR Take 1 tablet by mouth daily-PRN LANSOPRAZOLE 18848836919 No Longer Active Yolande Lindsay MD PhD Active PA VITAMIN D-3 2000 UNIT CAPS 1 CAP PO DAILY CHOLECALCIFEROL 30782258175 No Longer Active Yolande Lindsay MD PhD Active CEFDINIR 300 MG CAPS by mouth twice a day CEFDINIR 02875002399 No Longer Active Gab Padron MD Active TOPAMAX 50 MG TABS 1 PO twice daily TOPIRAMATE 60998752537 Active Yolande Lindsay MD PhD Active AZITHROMYCIN 250 MG TABS 2 po qd x 1 day, then 1 po qd x 4 days AZITHROMYCIN 29505937079 No Longer Active Yolande Lindsay MD PhD Active DICLOFENAC SODIUM 75 MG TBEC 1 tablet by q 12 hours PRN headaches DICLOFENAC SODIUM 88742996358 No Longer Active Yolande Lindsay MD PhD Active FLONASE 50 MCG/ACT SUSP 1 spray each nostril am and hs FLUTICASONE PROPIONATE 86123409791 No Longer Active Todd Callaway MD Active ANUSOL-HC 25 MG SUPPOSITORY 1 rectally twice a day as needed for hemorrhoids HYDROCORTISONE JAYDEN (RECTAL) 61277675519 No Longer Active Yolande Lindsay MD PhD Active ANUSOL-HC 25 MG SUPPOSITORY 1 suppository rectally each evening as needed for anal fissure HYDROCORTISONE JAYDEN (RECTAL) 67184668795 No Longer Active LONNIE Iglesias Active VALIUM 5 MG TAB 1 po 30 minutes prior to your MRI DIAZEPAM 57874326881 No Longer Active LONNIE Iglesias Active METHOCARBAMOL 750 MG TABS 1 PO QID PRN METHOCARBAMOL 48841840633 No Longer Active Daphne Wetzel APRN Active NITROSTAT 0.4 MG SUBL as directed NITROGLYCERIN 93066629913 No Longer Active Rodrigo Sarah APRN Active ROBAXIN-750 750 MG TABS 2 four times a day for 3 days as needed for muscle spasm, then 1 four times a day as needed METHOCARBAMOL 73002178067 No Longer Active Rodrigo Sarah APRN Active HYDROCODONE-ACETAMINOPHEN 5-325 MG TABS 1 q 4-6 hrs prn HYDROCODONE-ACETAMINOPHEN 94141675253 No Longer Active Jillina Frazell ENAMEL BUFFER Active VERAPAMIL HCL CR 180 MG CR-TABS TAKE 1 TAB DAILY VERAPAMIL HCL 71679355292 No Longer Active Yolande Lindsay MD PhD Active BACTRIM DS 800-160 MG TAB 1 tab by mouth twice daily TRIMETHOPRIM-SULFAMETHOXAZOLE 48803471356 No Longer Active Yolande Lindsay MD PhD Active NEXIUM 40 MG PACK 1 by mouth daily ESOMEPRAZOLE MAGNESIUM 31726170050 No Longer Active Des Hines MD Active EPIPEN 2-CHARLETTE 0.3 MG/0.3ML OMARI as need for allergic reaction EPINEPHRINE 97142537524 Active Yolande Lindsay MD PhD Active NEXIUM 40 MG CPDR 1 PO Q D DAY ESOMEPRAZOLE MAGNESIUM 06223234062 No Longer Active aSdia Perry RN Active NEXIUM 40 MG PACK 1 by mouth daily NEXIUM 40 MG PACK ESOMEPRAZOLE MAGNESIUM Inactive VERAPAMIL HCL CR 180 MG CR-TABS TAKE 1 TAB DAILY VERAPAMIL HCL CR 180 MG CR-TABS VERAPAMIL HCL Inactive HYDROCODONE-ACETAMINOPHEN 5-325 MG TABS 1 q 4-6 hrs prn HYDROCODONE-ACETAMINOPHEN 5-325 MG TABS 348592 HYDROCODONE-ACETAMINOPHEN Inactive ROBAXIN-750 750 MG TABS 2 four times a day for 3 days as needed for muscle spasm, then 1 four times a day as needed ROBAXIN-750 750 MG TABS 155217 METHOCARBAMOL Inactive NITROSTAT 0.4 MG SUBL as directed NITROSTAT 0.4 MG SUBL NITROGLYCERIN Inactive METHOCARBAMOL 750 MG TABS 1 PO QID PRN METHOCARBAMOL 750 MG TABS 19780706 METHOCARBAMOL Inactive VALIUM 5 MG TAB 1 po 30 minutes prior to your MRI VALIUM 5 MG TAB 029575 DIAZEPAM Inactive ANUSOL-HC 25 MG SUPPOSITORY 1 suppository rectally each evening as needed for anal fissure ANUSOL-HC 25 MG SUPPOSITORY 2414615 HYDROCORTISONE JAYDEN (RECTAL) Inactive ANUSOL-HC 25 MG SUPPOSITORY 1 rectally twice a day as needed for hemorrhoids ANUSOL-HC 25 MG SUPPOSITORY 4142881 HYDROCORTISONE JAYDEN (RECTAL) Inactive FLONASE 50 MCG/ACT SUSP 1 spray each nostril am and hs FLONASE 50 MCG/ACT SUSP FLUTICASONE PROPIONATE Inactive DICLOFENAC SODIUM 75 MG TBEC 1 tablet by q 12 hours PRN headaches DICLOFENAC SODIUM 75 MG TBEC 103272 DICLOFENAC SODIUM Inactive PA VITAMIN D-3 2000 UNIT CAPS 1 CAP PO DAILY PA VITAMIN D-3 2000 UNIT CAPS CHOLECALCIFEROL Inactive PREVACID 30 MG CPDR Take 1 tablet by mouth daily-PRN PREVACID 30 MG CPDR 061174 LANSOPRAZOLE Inactive DOXYCYCLINE HYCLATE 100 MG TAB 1 tab twice a day for 14 days 2013 DOXYCYCLINE HYCLATE 100 MG TAB 8842418 DOXYCYCLINE HYCLATE Inactive XOPENEX 1.25 MG/3ML NEBU 1 neb every 4 hours if needed for cough/congestion XOPENEX 1.25 MG/3ML NEBU 526030 LEVALBUTEROL HCL Inactive CYCLOBENZAPRINE HCL 10 MG TABS 1/2 - 1 tab by mouth three times daily if needed for spasms/pain CYCLOBENZAPRINE HCL 10 MG TABS 284958 CYCLOBENZAPRINE HCL Inactive ALBUTEROL SULFATE 0.083 % NEBU SOLN one vial per nebulizer every 4-6 hours as needed ALBUTEROL SULFATE 0.083 % NEBU SOLN 800190 ALBUTEROL SULFATE Inactive CEFTIN 500 MG TAB 1 twice a day CEFTIN 500 MG TAB 450803 CEFUROXIME AXETIL Inactive ZOFRAN ODT 4 MG TBDP 1 pill dissolved by mouth every 4 hours if needed for nausea ZOFRAN ODT 4 MG TBDP 521753 ONDANSETRON Inactive ADULT ASPIRIN EC LOW STRENGTH 81 MG TBEC Take 1 tablet by mouth daily 2014 ADULT ASPIRIN EC LOW STRENGTH 81 MG TBEC 475953 ASPIRIN Inactive CALCIUM 600+D PLUS MINERALS 600-400 [...] or an apple NIACIN 500 MG TABS 201396 NIACIN Inactive NIASPAN 500 MG ORAL CR-TABS 1 pill nightly x 1 week, then 2 pills nightly x 1 week, then 3 pills nightly x 1 week, then 4 pills nightly NIASPAN 500 MG ORAL CR-TABS NIACIN (ANTIHYPERLIPIDEMIC) Inactive OXYCODONE HCL 5 MG ORAL CAPS 1 TAB PO Q HS OXYCODONE HCL 5 MG ORAL CAPS 3759930 OXYCODONE HCL Inactive BACTRIM DS 800-160 MG TAB 1 tab by mouth twice daily BACTRIM DS 800-160 MG TAB 936005 TRIMETHOPRIM-SULFAMETHOXAZOLE Inactive AZITHROMYCIN 250 MG TABS 2 po qd x 1 day, then 1 po qd x 4 days AZITHROMYCIN 250 MG TABS 6380210 AZITHROMYCIN Inactive CEFDINIR 300 MG CAPS by mouth twice a day CEFDINIR 300 MG CAPS 483382 CEFDINIR Inactive AZITHROMYCIN 250 MG TABS 2 pills on day 1, then 1 pill daily x 4 days AZITHROMYCIN 250 MG TABS 9516103 AZITHROMYCIN Inactive DOXYCYCLINE HYCLATE 100 MG CAP 1 cap by mouth twice daily DOXYCYCLINE HYCLATE 100 MG CAP 5398400 DOXYCYCLINE HYCLATE Inactive FUROSEMIDE 20 MG TABS 1 pill by mouth daily, for edema FUROSEMIDE 20 MG TABS 929240 FUROSEMIDE Inactive AZITHROMYCIN 250 MG TABS 2 po qd x 1 day, then 1 po qd x 4 days AZITHROMYCIN 250 MG TABS 1208278 AZITHROMYCIN Inactive Immunizations Vaccine Administration Date Value Standard Description Seasonal influenza vaccine, injectable, containing preservative, for > 3 years old (Afluria, FluLaval, Fluzone, Fluvirin, Fluarix, Agriflu(>=18 yo)) Fluzone (>3 yrs.) [LNQ117] Influenza, seasonal, injectable influenza immunization (Flu Vax) has been administered Influenza - Unspecified Formulation [CVX88] influenza virus vaccine, unspecified formulation pneumococcal immunization administered Pneumovax 23 [CVX33] pneumococcal polysaccharide vaccine, 23 valent Seasonal influenza vaccine, injectable, containing preservative, for > 3 years old (Afluria, FluLaval, Fluzone, Fluvirin, Fluarix, Agriflu(>=18 yo)) Fluzone (>3 yrs.) [LVK008] Influenza, seasonal, injectable dT (Diphtheria and Tetanus) booster given given Td(adult) unspecified formulation Boostrix (Tetanus toxoid, reduced diphtheria toxoid and acellular pertussis vaccine, adsorbed), booster Boostrix [MZO744] tetanus toxoid, reduced diphtheria toxoid, and acellular [...] rate temperature E&M 99 [degF] Body temperature Diagnostic Results Date Name [...] - Chemistry potassium, serum 3.9 mmol/L 3.5-5.2 urea nitrogen, blood 24 mg/dL 7-18 creatinine, serum 1.30 mg/dL 0.60-1.30 chloride, serum 109 mmol/L 98-107 carbon dioxide, venous blood 23.4 mmol/L 21.0-32.0 blood glucose 92 mg/dL 65-110 calcium, serum 8.2 mg/dL 8.5-10.1 sodium, serum 145 mmol/L 136-145 Lab Report: [facility] Advanced Lipid and Inlammation Panel /53264 - Chemistry cholesterol, serum 198 mg/dL 625-412 4819/04/30 HDL cholesterol, serum 65 mg/dL > OR=46 triglyceride, serum, fasting 82 mg/dL LDL cholesterol, serum 117 mg/dL cholesterol/HDL ratio, serum 3.0 calc < OR=5.0 cholesterol, serum 148 mg/dL 657-485 2296/09/02 HDL cholesterol, serum 55 mg/dL > OR=46 [...] 10^3/MM^3 10*3/mm3 142-424 Lab Report: CBC W/DIFF, Basic Metabolic Panel - Chemistry sodium, serum 144 mmol/L 598-722 7522/01/21 potassium, serum 4.2 mmol/L 3.5-5.2 chloride, serum 109 mmol/L 98-107 carbon dioxide, venous blood 23.7 mmol/L 21.0-32.0 blood glucose 75 mg/dL 65-110 calcium, serum 8.4 mg/dL 8.5-10.1 urea nitrogen, blood 22 mg/dL 7-18 creatinine, serum 1.30 mg/dL 0.60-1.30 Lab Report: CBC W/DIFF, Basic Metabolic Panel - Hematology hemoglobin, blood 12.1 g/dL 12.0-16.0 hematocrit, blood 37.3 % 36.0-46.0 mean corpuscular volume, RBC 91 fL 80-97 mean corpuscular hemoglobin, RBC 29.6 pg 27.0-31.2 mean corpuscular hemoglobin concentration, RBC 32.6 G/DL % 31.8- 35.4 red blood cell distribution width 15.6 % 11.6-14.8 platelet count 189 10^3/MM^3 10*3/mm3 265-224 1040/01/21 erythrocyte (RBC) count 4.10 10^6/MM^3 10*6/mm3 4.04-5.48 lymphocytes as percent of blood leukocytes 38.7 % 20.5-51.1 monocytes as percent of blood leukocytes 8.3 % 1.7-9.3 neutrophils as percent of blood leukocytes 52.0 % 42.2-75.2 leukocyte count, blood 4.1 10^3/MM^3 10*3/mm3 4.6-10.2 Lab Report: CBC, Comp. Metabolic Panel, Thyroid Stimulating Hormone (L) - Chemistry sodium, serum 145 mmol/L 770-625 7089/09/02 potassium, serum 4.6 mmol/L 3.5-5.2 chloride, serum [...] 51 mg/dL 30-200 cholesterol, serum 173 mg/dL 952-918 2374/04/28 HDL cholesterol, serum 63 mg/dL 32-96 LDL [...] mg/dL Encounters Code Encounter Date Provider Facility CPT-37241 Level 3 Est. Patient 11:02:19 LEASING MACHINE TENDER Gab Padron MD [facility] CPT-91017 Level 4 Est. Patient 22:24:31 LEASING MACHINE TENDER Gab Padron MD [facility] CPT-14464 Level 3 Est. Patient 18:33:46 LEASING MACHINE TENDER Gab Padron MD [facility] CPT-12219 Level 3 Est. Patient 16:19:11 CDT Yolande Lindsay MD [facility] CPT-08827 Level 3 Est. Patient 18:59:14 CDT Yolande Lindsay MD [facility] CPT-48055 Level 4 Est. Patient 21:29:26 CDT Yolaned Lindsay MD [facility] CPT-91527 Level 3 Est. Patient 07:37:45 CDT Yolande Lindsay MD [facility] CPT-00658 Level 3 Est. Patient 17:03:46 CDT Yolande Lindsay MD [facility] CPT-56521 Level 4 Est. Patient 20:02:13 LEASING MACHINE TENDER Yolande Lindsay MD [facility] CPT-97393 Level 3 Est. Patient 16:02:07 LEASING MACHINE TENDER Alexis Ordaz MD [facility] CPT-09610 Level 3 Est. Patient 12:41:24 LEASING MACHINE TENDER Yolande Lindsay MD PhD [facility] CPT-37925 Level 3 Est. Patient 15:41:20 LEASING MACHINE TENDER Yolande Lindsay MD [facility] CPT-46228 Level 3 Est. Patient 13:20:02 LEASING MACHINE TENDER Yolande Lindsay MD [facility]-21825 Level 3 Est. Patient 15:00:38 CDT Jared Og MD [facility] CPT-30585 Level 3 Est. Patient 10:22:32 CDT Yolande Lindsay MD [facility] CPT-85465 Level 3 Est. Patient 17:12:58 CDT Yolande Lindsay MD [facility]-81252 Level 4 Est. Patient 13:30:58 CDT Yolande Lindsay MD [facility] CPT-91171 Level 4 New Patient 09:02:42 CDT Jared Og MD [facility]-88347 Level 3 Est. Patient 08:19:07 CDT Yolande Lindsay MD [facility] CPT-70370 Level 3 Est. Patient 12:00:13 LEASING MACHINE TENDER Gab Padron MD [facility] CPT-05357 Level 3 Est. Patient 16:15:23 LEASING MACHINE TENDER Yolande Lindsay MD [facility] CPT-72815 Level 2 Est. Patient 19:47:15 CDT Yolande Lindsay MD [facility] CPT-41055 Level 3 Est. Patient 21:38:31 CDT Yolande Lindsay MD [facility] CPT-13117 Level 3 Est. Patient 10:25:12 CDT Adiel PERAZA [facility] CPT-01254 Level 4 Est. Patient 10:51:58 CDT Yolande Lindsay MD [facility] CPT-83826 Level 3 Est. Patient 14:04:55 LEASING MACHINE TENDER Rodrigo Sarah [facility] CPT-30582 Level 3 Est. Patient 10:46:35 LEASING MACHINE TENDER Rodrigo Sarah [facility] CPT-31765 Level 3 Est. Patient 14:24:37 LEASING MACHINE TENDER Yolande Lindsay MD [facility] CPT-03656 Level 3 Est. Patient 17:41:58 LEASING MACHINE TENDER Yolande Lindsay MD [facility] CPT-94379 Level 2 Est. Patient 22:01:41 LEASING MACHINE TENDER Rodrigo Sarah [facility] CPT-52417 Level 2 Est. Patient 22:01:11 LEASING MACHINE TENDER Rodrigo Sarah [facility] CPT-75882 Level 3 Est. Patient 10:12:29 LEASING MACHINE TENDER Rodrigo Sarah [facility] CPT-35471 Level 3 Est. Patient 11:05:44 CDT Alexis Ordaz MD [facility] CPT-19305 Level 3 Est. Patient 14:57:20 CDT Yolande Lindsay MD [facility] CPT-34229 Level 3 Est. Patient 14:40:57 CDT Yolande Lindsay MD [facility] CPT-68732 Level 3 Est. Patient 20:55:40 CDT Yolande Lindsay MD [facility] CPT-97792 Level 3 Est. Patient 12:42:38 LEASING MACHINE TENDER Yolande Lindsay MD [facility]-72142 Level 3 Est. Patient 11:54:49 LEASING MACHINE TENDER Des Hines MD [facility] CPT-55801 Level 3 Est. Patient 17:06:38 CDT Dewayne PERAZA [facility] Procedures Code Procedure Name Date Entry Date Standard Description [id number] Event Monitor - MC Transmission 09:12:32 CDT 08/06 [id number] Event Monitor - MC review and interp 09:12:32 CDT [id number] Event Monitor - MC recording 09:12:32 CDT CPT-38373 EKG Trac and Interp 16:50:22 CDT CPT-J1030 Depo Medrol 40 mg (Methyl Prednisolone Acetate) 17:05: 54 CDT CPT-J1100 Decadron 4mg (Dexamethasone) 17:05:54 CDT CPT-41460 Abx/Therapy Injection 17:05:54 CDT CPT-J1100 Decadron 4mg (Dexamethasone) 16:55:28 CDT CPT-J1030 Depo Medrol 40 mg (Methyl Prednisolone Acetate) 16:55: 28 CDT CPT-88961 Ankle Complete - Min 3V 15:58:50 CDT CPT-85059 Knee 3V 15:58:50 CDT CPT-04059 Hip comp min 2V 15:58:50 CDT CPT-J2270 Morphine Sulfate 10 mg 14:25:44 LEASING MACHINE TENDER CPT-J2550 Phenergan 12.5 mg (Promethazine) 14:25:44 LEASING MACHINE TENDER CPT-35078 Abx/Therapy Injection 14:25:44 LEASING MACHINE TENDER CPT-J2550 Phenergan 12.5 mg (Promethazine) 14:08:03 LEASING MACHINE TENDER CPT-J2270 Morphine Sulfate 10 mg 14:08:03 LEASING MACHINE TENDER CPT-44315 Bladder Scan 15:00:38 CDT CPT-TCMM Transitional Care Mgmt-Moderate 09:52:22 CDT CPT-J1030 Depo Medrol 40 mg (Methyl Prednisolone Acetate) 10:55: 18 CDT CPT-J1100 Decadron 4mg (Dexamethasone) 10:55:18 CDT CPT-25257 Abx/Therapy Injection 10:55:18 CDT CPT-J1030 Depo Medrol 40 mg (Methyl Prednisolone Acetate) 10:22: 32 CDT CPT-J1100 Decadron 4mg (Dexamethasone) 10:22:32 CDT CPT-47306 Postop F/U Visit 14:37:13 CDT CPT-96669 Ankle Complete - Min 3V 17:11:58 CDT CPT-05432 Foot comp min 3V 17:11:58 CDT CPT-28242 Bladder Scan 09:56:58 CDT CPT-57523 Postop F/U Visit 09:56:58 CDT CPT-44295 Cystoscopy 09:02:42 CDT CPT-74604 Bladder Scan 09:02:42 CDT CPT-68440 Abd single AP View 16:00:35 CDT CPT-85796 Administration single or combination vaccine inc oral 10 :15:43 CDT CPT-54730 Influenza split virus > age 3 10:15:43 CDT CPT-43134 Nail Avulsion 09:24:57 CDT CPT-OV Office Visit 11:15:41 CDT CPT-28043 Abx/Therapy Injection 10:51:30 CDT CPT-J3301 Kenalog 40 mg (Triamcinolone Acetonide) 10:25:12 CDT CPT-J1100 Decadron 4mg (Dexamethasone) 10:25:12 CDT CPT-23348 Anoscopy diagnostic 10:36:12 CDT CPT-OV Office Visit 15:34:31 CDT CPT-14785 Abx/Therapy Injection 08:21:15 LEASING MACHINE TENDER CPT-J1885 Toradol 60 mg (Ketorolac) 10:46:35 LEASING MACHINE TENDER CPT-OV Office Visit 19:51:16 LEASING MACHINE TENDER CPT-43416 Spec Collection and Handling Fee 14:34:18 LEASING MACHINE TENDER CPT-PV Prev. Care Visit 14:19:18 LEASING MACHINE TENDER CPT-91457 Postop F/U Visit 14:47:51 LEASING MACHINE TENDER CPT-05977 Postop F/U Visit 15:15:14 LEASING MACHINE TENDER CPT-85495 Postop F/U Visit 14:41:43 CDT CPT-64067 Postop F/U Visit 15:47:46 CDT CPT-OV Office Visit 15:27:23 CDT CPT-OV Office Visit 17:20:34 CDT CPT-01116 Abx/Therapy Injection 15:05:57 CDT CPT-J1100 Decadron 8mg (Dexamethasone) 14:44:57 CDT CPT-J1040 Depo Medrol 80 mg (Methyl Prednisolone Acetate) 14:44: 57 CDT CPT-JTINJ Joint Injection 10:17:37 CDT CPT-02050 Administration 2+ single or combination vaccines inc oral 13:01:46 LEASING MACHINE TENDER CPT-07772 Administration single or combination vaccine inc oral 13 :01:46 LEASING MACHINE TENDER CPT-45304 Pneumovax 13:01:46 LEASING MACHINE TENDER CPT-57614 Influenza split virus > age 3 13:01:46 LEASING MACHINE TENDER CPT-68476 Administration single or combination vaccine inc oral 08 :56:49 CDT CPT-71743 Tdap 08:56:49 CDT
--- OUTSIDE RECORDS SUMMARY | 2017-03-21 20:48 | XMS REPORT ---
Author Author [facility] [employer] [facility] Medical Staff Organization [facility] [employer] [facility] Address [address] [place] [id number] Phone [phone] Care Team Providers Care Global Account Director Name Role Phone EVELYN SPEARS MD PP [phone] Summary purpose TRANSITION OF CARE AUTO GENERATION [...] Code Type Description Date Performed Performing Physician 91754 CPT-4 EMERGENCY DEPT VISIT 06-26-2015 CHRIS BILLINGSLEY 63624 CPT-4 EMERGENCY DEPT VISIT 06-26-2015 CHRIS BILLINGSLEY Functional status Functional Status Finding Observation Time Diet regular 79-78-027231:20 Abdomen Appearance obese 56-09-416810:20 Abdomen soft 68-66-787748:20 Bajwa no :20 Urination normal :20 Quality sym/unlabored :20 Cough non-productive :20 Secretions no :20 Breath Sounds RUL clear :20 Breath Sounds RML clear :20 Breath Sounds RLL clear : Breath Sounds LESLIE clear : Breath Sounds LLL clear :20 Airway natural : Chest Tube no :20 Oxygen no : Temp >100.4 no :20 Temp <96.8 no :20 Chills with rigors no : HR > 90bpm no :20 Respirations > 20 no : Systolic <90 no : headache stiff neck no :20 Nursing Note Reviewed pt home instructions and home prescription with pt - pt verbalizes understanding with copy given - pt is amb off unit at this time in good condition. : Vital signs Type Value Date Respiration Rate 18breaths per minute : Pulse 87beats per minute :00 Oxygen Saturation 100% :00 BP Systolic 119mmHg :00 BP Diastolic 66mmHg :00 Temperature 100.5F :00 Social history Type Value Smoking Status FORMER SMOKER Treatment Plan No treatment plan text is available for this visit. Hospital discharge instructions Dismissal Condition good Disposition on DC home DC Inst/Educ Give yes Med/Side Effects Rev yes PNE Vac Jan 13, 2015 Flu Vac Jan 13, 2015
--- OUTSIDE RECORDS SUMMARY | 2017-03-21 20:48 | XMS REPORT | Clinical Summary ---
Author Author Admin, E Organization [facility] Address Unknown Phone Unavailable Allergies, Adverse Reactions, Alerts Allergy Name Reaction Description Start Date Severity Status Provider VALENTIN Critical Active Rodrigo Fracharlottel DIRECTOR INSURANCE CHLORHEXIDINE GLUCONATE tongue and gums swollen Critical Active Hoa Otto RMA NORFLEX Rash Critical Active Silvestrellina Frazell DIRECTOR INSURANCE TRAZODONE HCL sees things Critical Active Dewayne [...] Inactive Gab Padron MD Cough ICD-786.2 Inactive Gba Padron MD 09/20 Mycoplasma infection ICD-041.81 Inactive [...] 1 po qd PRN Allergies CETIRIZINE HCL 45265183640 Active Gab Padron MD Active CLARITIN 10 MG TAB 1 tablet by mouth daily as needed for allergies LORATADINE 03198151672 No Longer Active Gab Padron MD Active PREDNISONE 20 MG TAB take 3 tabs daily for 3 days, 2 tabs daily for 3 days, 1 tab daily for 3 days, 1/2 tab daily for 3 days PREDNISONE 66714950706 No Longer Active Tisha Lambert APRN Active TRAMADOL HCL 50 MG TABS 1 tab po every 6 hrs prn pain TRAMADOL HCL 24355267645 Active Gab Padron MD Active PREDNISONE 20 MG TAB 2 tabs daily for 3 days, 1 tab daily for 3 days, 1/2 tab daily for 2 days PREDNISONE 32200586598 No Longer Active Gab Padron MD Active ZOFRAN ODT 4 MG TBDP 1 po q6hr PRN Nausea ONDANSETRON 06822700899 Active Gab Padron MD Active IBUPROFEN 600 MG TAB 1 tablet by mouth every 6 hours for 7 days, then 1 tablet every 6 hours as needed. Take with food IBUPROFEN 31708508326 Active Rodrigo Sarah APRN Active BACTRIM DS 800-160 MG TAB 1 tab by mouth twice daily TRIMETHOPRIM-SULFAMETHOXAZOLE 83550446696 No Longer Active Gab Padron MD Active ADVAIR DISKUS 250-50 MCG/DOSE AEPB 1 puff BID FLUTICASONE- SALMETEROL 59289424834 Active Rodrigo Sarah APRN Active LEVOTHYROXINE SODIUM 75 MCG TABS Take 1 tab daily LEVOTHYROXINE SODIUM 99260498241 No Longer Active Mariana FLEMING Active SYNTHROID 88 MCG ORAL TABS Take one by mouth daily LEVOTHYROXINE SODIUM 56912738057 Active Gab Padron MD Active CHERATUSSIN AC 100-10 MG/5ML SYRP 1 tsp by mouth every 4 hours as needed for cough GUAIFENESIN-CODEINE 06343310288 No Longer Active Gab Padron MD Active POLYTRIM 00567-0.1 UNIT/ML-% SOLN 1 gtt to affected eye q3h x 7 days POLYMYXIN B-TRIMETHOPRIM 76219288008 No Longer Active Gab Padron MD Active FLUTICASONE PROPIONATE 50 MCG/ACT SUSP 1 to 2 sprays each nostril daily 04/21 FLUTICASONE PROPIONATE 07373125223 No Longer Active Gab Padron MD Active TRILEPTAL 600 MG TABS Take one 1 tablet in Am and 1 tablet at night OXCARBAZEPINE 24550413099 Active Gab Padron MD Active CEFDINIR 300 MG CAPS 1 po BID x 10 days CEFDINIR 75872326916 No Longer Active Silvestrellina Tyrel GAUTAM Active CEFTIN 500 MG TAB 1 twice a day CEFUROXIME AXETIL 30972466460 No Longer Active Gab Padron MD Active AZITHROMYCIN 250 MG TABS 2 po qd x 1 day, then 1 po qd x 4 days AZITHROMYCIN 10419638046 No Longer Active Silvestrellina Frahossein GAUTAM Active OXYCODONE HCL 5 MG ORAL CAPS 1 TAB PO Q HS OXYCODONE HCL 51602943687 No Longer Active Jillina Frahossein GAUTAM Active NIASPAN 500 MG ORAL CR-TABS 1 pill nightly x 1 week, then 2 pills nightly x 1 week, then 3 pills nightly x 1 week, then 4 pills nightly NIACIN (ANTIHYPERLIPIDEMIC) 65552712642 No Longer Active Jillina Frahossein DIRECTOR INSURANCE Active NIACIN 500 MG TABS 1 pill by mouth nightly x 1 week, then 2 pills x 1 week, then 3 pills x 1 week, then 4 pills nightly - take after evening meal, with applesauce or an apple NIACIN 21782961427 No Longer Active Yolande Lindsay MD PhD Active FISH OIL 1000 MG CAPS 3 pills daily OMEGA-3 FATTY ACIDS 61025656491 Active Yolande Lindsay MD PhD Active TRIAMCINOLONE ACETONIDE 0.1 % CREA apply bid sparingly to rash TRIAMCINOLONE ACETONIDE 24108798546 Active Yolande Lindsay MD PhD Active FUROSEMIDE 20 MG TAB 1 tablet by mouth daily FUROSEMIDE 89112835315 Active Tisha Lambert DIRECTOR INSURANCE Active LISINOPRIL 20 MG ORAL TABS 1 tab by mouth daily LISINOPRIL 55540862489 Active Gab Padron MD Active FUROSEMIDE 20 MG TABS 1 pill by mouth daily, for edema FUROSEMIDE 83309550524 No Longer Active Yolande Lindsay MD PhD Active ATORVASTATIN CALCIUM 10 MG TABS 1 pill by mouth daily, for cholesterol 09/06 ATORVASTATIN CALCIUM 24651217234 Active Gab Padron MD Active CALCIUM 600+D PLUS MINERALS 600-400 MG-UNIT ORAL CHEW 1 tab by mouth daily CALCIUM CARBONATE-VIT D-MIN 34447566806 No Longer Active Yolande Lindsay MD PhD Active CYCLOBENZAPRINE HCL 10 MG TABS 1 tablet by mouth three times daily as needed for muscle spasm/pain CYCLOBENZAPRINE HCL 75863850686 Active Yolande Lindsay MD PhD Active ONDANSETRON 4 MG TBDP 1 q4h PRN nausea ONDANSETRON 30949589709 Active Yolande Lindsay MD PhD Active ADULT ASPIRIN EC LOW STRENGTH 81 MG TBEC Take 1 tablet by mouth daily 2014 ASPIRIN 33433479697 No Longer Active Yolande Lindsay MD PhD Active ZOFRAN ODT 4 MG TBDP 1 pill dissolved by mouth every 4 hours if needed for nausea ONDANSETRON 60666902672 No Longer Active Yolande Lindsay MD PhD Active CEFTIN 500 MG TAB 1 twice a day CEFUROXIME AXETIL 81698934867 No Longer Active Yolande Lindsay MD PhD Active ALBUTEROL SULFATE 0.083 % NEBU SOLN one vial per nebulizer every 4-6 hours as needed ALBUTEROL SULFATE 33609984468 No Longer Active Alexis Ordaz MD Active DOXYCYCLINE HYCLATE 100 MG CAP 1 cap by mouth twice daily DOXYCYCLINE HYCLATE 99224811544 No Longer Active Yolande Lindsay MD PhD Active CYCLOBENZAPRINE HCL 10 MG TABS 1/2 - 1 tab by mouth three times daily if needed for spasms/pain CYCLOBENZAPRINE HCL 47764033248 No Longer Active Yolande Lindsay MD PhD Active AZITHROMYCIN 250 MG TABS 2 pills on day 1, then 1 pill daily x 4 days AZITHROMYCIN 35069514723 No Longer Active Yolande Lindsay MD PhD Active XOPENEX 1.25 MG/3ML NEBU 1 neb every 4 hours if needed for cough/congestion LEVALBUTEROL HCL 71955304270 No Longer Active Yolande Lindsay MD PhD Active DOXYCYCLINE HYCLATE 100 MG TAB 1 tab twice a day for 14 days 2013 DOXYCYCLINE HYCLATE 78476216179 No Longer Active Yolande Lindsay MD PhD Active PREVACID 30 MG CPDR Take 1 tablet by mouth daily-PRN LANSOPRAZOLE 48605064792 No Longer Active Yolande Lindsay MD PhD Active PA VITAMIN D-3 2000 UNIT CAPS 1 CAP PO DAILY CHOLECALCIFEROL 64627894802 No Longer Active Yolande Lindsay MD PhD Active CEFDINIR 300 MG CAPS by mouth twice a day CEFDINIR 72554389515 No Longer Active Gab Padron MD Active TOPAMAX 50 MG TABS 1 PO twice daily TOPIRAMATE 12953622156 Active Yolande Lindsay MD PhD Active AZITHROMYCIN 250 MG TABS 2 po qd x 1 day, then 1 po qd x 4 days AZITHROMYCIN 79055655702 No Longer Active Yolande Lindsay MD PhD Active DICLOFENAC SODIUM 75 MG TBEC 1 tablet by q 12 hours PRN headaches DICLOFENAC SODIUM 62336929574 No Longer Active Yolande Lindsay MD PhD Active FLONASE 50 MCG/ACT SUSP 1 spray each nostril am and hs FLUTICASONE PROPIONATE 24174690404 No Longer Active Todd Callaway MD Active ANUSOL-HC 25 MG SUPPOSITORY 1 rectally twice a day as needed for hemorrhoids HYDROCORTISONE JAYDEN (RECTAL) 87921190873 No Longer Active Yolande Lindsay MD PhD Active ANUSOL-HC 25 MG SUPPOSITORY 1 suppository rectally each evening as needed for anal fissure HYDROCORTISONE JAYDEN (RECTAL) 14454982608 No Longer Active LONNIE Iglesias Active VALIUM 5 MG TAB 1 po 30 minutes prior to your MRI DIAZEPAM 49766730611 No Longer Active LONNIE Iglesias Active METHOCARBAMOL 750 MG TABS 1 PO QID PRN METHOCARBAMOL 94486367787 No Longer Active Daphne Wetzel APRN Active NITROSTAT 0.4 MG SUBL as directed NITROGLYCERIN 21305963302 No Longer Active Rodrigo Sarah APRN Active ROBAXIN-750 750 MG TABS 2 four times a day for 3 days as needed for muscle spasm, then 1 four times a day as needed METHOCARBAMOL 18955282540 No Longer Active Rodrigo Sarah APRN Active HYDROCODONE-ACETAMINOPHEN 5-325 MG TABS 1 q 4-6 hrs prn HYDROCODONE-ACETAMINOPHEN 48843020100 No Longer Active Rodrigo Sarah APRN Active VERAPAMIL HCL CR 180 MG CR-TABS TAKE 1 TAB DAILY VERAPAMIL HCL 01627494239 No Longer Active Yolande Lindsay MD PhD Active BACTRIM DS 800-160 MG TAB 1 tab by mouth twice daily TRIMETHOPRIM-SULFAMETHOXAZOLE 42425020122 No Longer Active Yolande Lindsay MD PhD Active NEXIUM 40 MG PACK 1 by mouth daily ESOMEPRAZOLE MAGNESIUM 38085195205 No Longer Active Des Hines MD Active EPIPEN 2-CHARLETTE 0.3 MG/0.3ML OMARI as need for allergic reaction EPINEPHRINE 57675683931 Active Yolande Lindsay MD PhD Active NEXIUM 40 MG CPDR 1 PO Q D DAY ESOMEPRAZOLE MAGNESIUM 21104479404 No Longer Active Sadia Perry RN Active NEXIUM 40 MG PACK 1 by mouth daily NEXIUM 40 MG PACK ESOMEPRAZOLE MAGNESIUM Inactive VERAPAMIL HCL CR 180 MG CR-TABS TAKE 1 TAB DAILY VERAPAMIL HCL CR 180 MG CR-TABS VERAPAMIL HCL Inactive HYDROCODONE-ACETAMINOPHEN 5-325 MG TABS 1 q 4-6 hrs prn HYDROCODONE-ACETAMINOPHEN 5-325 MG TABS 451661 HYDROCODONE-ACETAMINOPHEN Inactive ROBAXIN-750 750 MG TABS 2 four times a day for 3 days as needed for muscle spasm, then 1 four times a day as needed ROBAXIN-750 750 MG TABS 955053 METHOCARBAMOL Inactive NITROSTAT 0.4 MG SUBL as directed NITROSTAT 0.4 MG SUBL 466871 NITROGLYCERIN Inactive METHOCARBAMOL 750 MG TABS 1 PO QID PRN METHOCARBAMOL 750 MG TABS 413926 METHOCARBAMOL Inactive VALIUM 5 MG TAB 1 po 30 minutes prior to your MRI VALIUM 5 MG TAB 415629 DIAZEPAM Inactive ANUSOL-HC 25 MG SUPPOSITORY 1 suppository rectally each evening as needed for anal fissure ANUSOL-HC 25 MG SUPPOSITORY 1564487 HYDROCORTISONE JAYDEN (RECTAL) Inactive ANUSOL-HC 25 MG SUPPOSITORY 1 rectally twice a day as needed for hemorrhoids ANUSOL-HC 25 MG SUPPOSITORY 6978478 HYDROCORTISONE JAYDEN (RECTAL) Inactive FLONASE 50 MCG/ACT SUSP 1 spray each nostril am and hs FLONASE 50 MCG/ACT SUSP 0766190 FLUTICASONE PROPIONATE Inactive DICLOFENAC SODIUM 75 MG TBEC 1 tablet by q 12 hours PRN headaches DICLOFENAC SODIUM 75 MG TBEC 848624 DICLOFENAC SODIUM Inactive PA VITAMIN D-3 2000 UNIT CAPS 1 CAP PO DAILY PA VITAMIN D-3 2000 UNIT CAPS CHOLECALCIFEROL Inactive PREVACID 30 MG CPDR Take 1 tablet by mouth daily-PRN PREVACID 30 MG CPDR 901651 LANSOPRAZOLE Inactive DOXYCYCLINE HYCLATE 100 MG TAB 1 tab twice a day for 14 days 2013 DOXYCYCLINE HYCLATE 100 MG TAB 9654481 DOXYCYCLINE HYCLATE Inactive XOPENEX 1.25 MG/3ML NEBU 1 neb every 4 hours if needed for cough/congestion XOPENEX 1.25 MG/3ML NEBU 443632 LEVALBUTEROL HCL Inactive CYCLOBENZAPRINE HCL 10 MG TABS 1/2 - 1 tab by mouth three times daily if needed for spasms/pain CYCLOBENZAPRINE HCL 10 MG TABS 845117 CYCLOBENZAPRINE HCL Inactive ALBUTEROL SULFATE 0.083 % NEBU SOLN one vial per nebulizer every 4-6 hours as needed ALBUTEROL SULFATE 0.083 % NEBU SOLN 247438 ALBUTEROL SULFATE Inactive CEFTIN 500 MG TAB 1 twice a day CEFTIN 500 MG TAB 846329 CEFUROXIME AXETIL Inactive ZOFRAN ODT 4 MG TBDP 1 pill dissolved by mouth every 4 hours if needed for nausea ZOFRAN ODT 4 MG TBDP 318686 ONDANSETRON Inactive ADULT ASPIRIN EC LOW STRENGTH 81 MG TBEC Take 1 tablet by mouth daily 2014 ADULT ASPIRIN EC LOW STRENGTH 81 MG TBEC 186211 ASPIRIN Inactive CALCIUM 600+D PLUS MINERALS 600-400 [...] or an apple NIACIN 500 MG TABS 911356 NIACIN Inactive NIASPAN 500 MG ORAL CR-TABS 1 pill nightly x 1 week, then 2 pills nightly x 1 week, then 3 pills nightly x 1 week, then 4 pills nightly NIASPAN 500 MG ORAL CR-TABS NIACIN (ANTIHYPERLIPIDEMIC) Inactive OXYCODONE HCL 5 MG ORAL CAPS 1 TAB PO Q HS OXYCODONE HCL 5 MG ORAL CAPS 7367005 OXYCODONE HCL Inactive FLUTICASONE PROPIONATE 50 MCG/ACT SUSP 1 to 2 sprays each nostril daily 04/21 FLUTICASONE PROPIONATE 50 MCG/ACT SUSP 6535413 FLUTICASONE PROPIONATE Inactive POLYTRIM 30207-3.1 UNIT/ML-% SOLN 1 gtt to affected eye q3h x 7 days POLYTRIM 38891-6.1 UNIT/ML-% SOLN 396852 POLYMYXIN B- TRIMETHOPRIM Inactive CHERATUSSIN AC 100-10 MG/5ML SYRP 1 tsp by mouth every 4 hours as needed for cough CHERATUSSIN AC 100-10 MG/5ML SYRP 089098 GUAIFENESIN-CODEINE Inactive LEVOTHYROXINE SODIUM 75 MCG TABS Take 1 tab daily LEVOTHYROXINE SODIUM 75 MCG TABS 612601 LEVOTHYROXINE SODIUM Inactive CLARITIN 10 MG TAB 1 tablet by mouth daily as needed for allergies CLARITIN 10 MG TAB 586293 LORATADINE Inactive BACTRIM DS 800-160 MG TAB 1 tab by mouth twice daily BACTRIM DS 800-160 MG TAB 568548 TRIMETHOPRIM-SULFAMETHOXAZOLE Inactive AZITHROMYCIN 250 MG TABS 2 po qd x 1 day, then 1 po qd x 4 days AZITHROMYCIN 250 MG TABS 0395131 AZITHROMYCIN Inactive CEFDINIR 300 MG CAPS by mouth twice a day CEFDINIR 300 MG CAPS 987779 CEFDINIR Inactive AZITHROMYCIN 250 MG TABS 2 pills on day 1, then 1 pill daily x 4 days AZITHROMYCIN 250 MG TABS 9049166 AZITHROMYCIN Inactive DOXYCYCLINE HYCLATE 100 MG CAP 1 cap by mouth twice daily DOXYCYCLINE HYCLATE 100 MG CAP 5329305 DOXYCYCLINE HYCLATE Inactive FUROSEMIDE 20 MG TABS 1 pill by mouth daily, for edema FUROSEMIDE 20 MG TABS 774210 FUROSEMIDE Inactive AZITHROMYCIN 250 MG TABS 2 po qd x 1 day, then 1 po qd x 4 days AZITHROMYCIN 250 MG TABS 6328281 AZITHROMYCIN Inactive CEFTIN 500 MG TAB 1 twice a day CEFTIN 500 MG TAB 292073 CEFUROXIME AXETIL Inactive CEFDINIR 300 MG CAPS 1 po BID x 10 days CEFDINIR 300 MG CAPS 132947 CEFDINIR Inactive BACTRIM DS 800-160 MG TAB 1 tab by mouth twice daily BACTRIM DS 800-160 MG TAB 420039 TRIMETHOPRIM-SULFAMETHOXAZOLE Inactive PREDNISONE 20 MG TAB 2 tabs daily for 3 days, 1 tab daily for 3 days, 1/2 tab daily for 2 days PREDNISONE 20 MG TAB 321670 PREDNISONE Inactive PREDNISONE 20 MG TAB take 3 tabs daily for 3 days, 2 tabs daily for 3 days, 1 tab daily for 3 days, 1/2 tab daily for 3 days PREDNISONE 20 MG TAB 692499 PREDNISONE Inactive Immunizations Vaccine Administration Date Value Standard Description Seasonal influenza vaccine, injectable, containing preservative, for > 3 years old (Afluria, FluLaval, Fluzone, Fluvirin, Fluarix, Agriflu(>=18 yo)) Fluzone (>3 yrs.) [OMF530] Influenza, seasonal, injectable influenza immunization (Flu Vax) has been administered Influenza - Unspecified Formulation [CVX88] influenza virus vaccine, unspecified formulation pneumococcal immunization administered Pneumovax 23 [CVX33] pneumococcal polysaccharide vaccine, 23 valent Seasonal influenza vaccine, injectable, containing preservative, for > 3 years old (Afluria, FluLaval, Fluzone, Fluvirin, Fluarix, Agriflu(>=18 yo)) Fluzone (>3 yrs.) [NFU646] Influenza, seasonal, injectable dT (Diphtheria and Tetanus) booster given given Td(adult) unspecified formulation Boostrix (Tetanus toxoid, reduced diphtheria toxoid and acellular pertussis vaccine, adsorbed), booster Boostrix [MNX617] tetanus toxoid, reduced diphtheria toxoid, and acellular [...] Panel - Chemistry sodium, serum 142 mmol/L 950-713 6798/06/30 potassium, serum 4.4 mmol/L 3.5-5.2 chloride, serum 108 mmol/L 98-107 carbon dioxide, venous blood 25.1 mmol/L 21.0-32.0 blood glucose 82 mg/dL 65-110 calcium, serum 9.1 mg/dL 8.5-10.1 urea nitrogen, blood 18 mg/dL 7-18 creatinine, serum 1.31 mg/dL 0.55-1.30 Lab Report: Lipid Panel, HEPATIC PANEL - Chemistry cholesterol, serum 166 mg/dL 544-863 8610/12/06 triglyceride, serum, fasting 86 mg/dL 30-200 HDL [...] dipstick Negative Negative sodium, serum 142 mmol/L 644-393 6809/07/18 carbon dioxide, venous blood 27.8 mmol/L 21.0-32.0 [...] negative Encounters Code Encounter Date Provider Facility CPT-51898 Level 4 Est. Patient 13:18:33 CDT Gab Padron MD [facility] CPT-94302 Level 3 Est. Patient 15:20:50 CDT Jared Og MD [facility] CPT-10371 Level 3 Est. Patient 17:43:55 JAMMER HOOKER Gab Padron MD [facility] CPT-07868 Level 3 Est. Patient 17:07:49 JAMMER HOOKER Jared Og MD [facility] CPT-32016 Level 4 Est. Patient 19:55:18 JAMMER HOOKER Jared Og MD [facility] CPT-27899 Level 3 Est. Patient 20:13:34 JAMMER HOOKER Jared Og MD [facility] CPT-40742 Level 4 Est. Patient 16:31:27 CDT Gab Padron MD [facility] CPT-99268 Level 2 Est. Patient 12:23:38 CDT Jared Og MD [facility] CPT-56283 Level 3 Est. Patient 11:01:51 CDT Gab Padron MD [facility] CPT-26523 Level 3 Est. Patient 15:27:02 CDT [facility] Og [facility] CPT-54603 Level 4 Est. Patient 09:25:27 CDT Gab Padron MD [facility]-53819 Level 3 Est. Patient 10:29:41 CDT Rodrigo Sarah [facility]-22386 Level 4 Est. Patient 17:51:05 CDT Gab Padron MD [facility]-38424 Level 3 Est. Patient 14:18:08 CDT Gab Padron MD [facility]-24379 Level 4 Est. Patient 10:18:54 CDT Gab Padron MD [facility]-03413 Level 3 Est. Patient 11:30:07 CDT Rodrigo Sarah [facility] CPT-89058 Level 4 Est. Patient 21:02:30 JAMMER HOOKER Gab Padron MD [facility]-36161 Level 3 Est. Patient 11:02:19 JAMMER HOOKER Gab Padron MD [facility] CPT-45505 Level 4 Est. Patient 22:24:31 JAMMER HOOKER Gab Padron MD [facility]-25655 Level 3 Est. Patient 18:33:46 JAMMER HOOKER Gab Padron MD [facility]-38364 Level 3 Est. Patient 16:19:11 CDT Yolande Lindsay MD [facility]-77747 Level 3 Est. Patient 18:59:14 CDT Yolande Lindsay MD [facility]-72096 Level 4 Est. Patient 21:29:26 CDT Yolande Lindsay MD [facility]-12541 Level 3 Est. Patient 07:37:45 CDT Yolande Lindsay MD PhD [facility]-84580 Level 3 Est. Patient 17:03:46 CDT Yolande Lindsay MD [facility] CPT-65817 Level 4 Est. Patient 20:02:13 JAMMER HOOKER Yolande Lindsay MD [facility] CPT-75528 Level 3 Est. Patient 16:02:07 JAMMER HOOKER Alexis rOdaz MD [facility] CPT-86666 Level 3 Est. Patient 12:41:24 JAMMER HOOKER Yolande Lindsay MD [facility] CPT-63929 Level 3 Est. Patient 15:41:20 JAMMER HOOKER Yolande Lindsay MD [facility] CPT-84069 Level 3 Est. Patient 13:20:02 JAMMER HOOKER Yolande Lindsay MD [facility]-78239 Level 3 Est. Patient 15:00:38 CDT Jared Og MD [facility]-18036 Level 3 Est. Patient 10:22:32 CDT Yolande Lindsay MD [facility] CPT-44078 Level 3 Est. Patient 17:12:58 CDT Yolande Lindsay MD [facility] CPT-78559 Level 4 Est. Patient 13:30:58 CDT Yolande Lindsay MD [facility] CPT-96609 Level 4 New Patient 09:02:42 CDT Jared Og MD [facility]-32567 Level 3 Est. Patient 08:19:07 CDT Yolande Lindsay MD [facility] CPT-19660 Level 3 Est. Patient 12:00:13 JAMMER HOOKER Gab Padron MD [facility] CPT-25168 Level 3 Est. Patient 16:15:23 JAMMER HOOKER Yolande Lindsay MD [facility] CPT-64335 Level 2 Est. Patient 19:47:15 CDT Yolande Lindsay MD [facility]-97974 Level 3 Est. Patient 21:38:31 CDT Yolande Lindsay MD [facility] named [facility]-22826 Level 3 Est. Patient 10:25:12 CDT Adiel PERAZA [facility]-01264 Level 4 Est. Patient 10:51:58 CDT Yolande Lindsay MD [facility]-87175 Level 3 Est. Patient 14:04:55 JAMMER HOOKER Rodrigo Sarah [facility]-46880 Level 3 Est. Patient 10:46:35 JAMMER HOOKER Rodrigo Sarah [facility]-27704 Level 3 Est. Patient 14:24:37 JAMMER HOOKER Yolande Lindsay MD [facility]-48578 Level 3 Est. Patient 17:41:58 JAMMER HOOKER Yolande Lindsay MD [facility]-41415 Level 2 Est. Patient 22:01:41 JAMMER HOOKER Rodrigo Sarah [facility] CPT-35789 Level 2 Est. Patient 22:01:11 JAMMER HOOKER Silvestrellnacho Sarah [facility]-50604 Level 3 Est. Patient 10:12:29 JAMMER HOOKER Rodrigo Sarah [facility] CPT-20348 Level 3 Est. Patient 11:05:44 CDT Alexis Ordaz MD [facility]-09694 Level 3 Est. Patient 14:57:20 CDT Yolande Lindsay MD [facility]-31959 Level 3 Est. Patient 14:40:57 CDT Yolande Lindsay MD [facility]-39538 Level 3 Est. Patient 20:55:40 CDT Yolande Lindsay MD [facility]-16797 Level 3 Est. Patient 12:42:38 JAMMER HOOKER Yolande Lindsay MD PhD [facility] CPT-40640 Level 3 Est. Patient 11:54:49 JAMMER HOOKER Des Hines MD [facility] CPT-29424 Level 3 Est. Patient 17:06:38 CDT Dewayne PERAZA [facility] Procedures Code Procedure Name Date Entry Date Standard Description CPT-J2930 Solu Medrol 125 mg (Methyl Prednisolone Sodium Succinate) 13:19:02 CDT CPT-68279 Abx/Therapy Injection 13:19:02 CDT CPT-J2930 Solu Medrol 125 mg (Methyl Prednisolone Sodium Succinate) 13:05:03 CDT CPT-84908 Hip, complete, 2-3 views - XRAY USE ONLY 17:19:04 JAMMER HOOKER CPT-76405 Venipuncture Draw Fee 08:37:59 JAMMER HOOKER CPT-58807 Liver Profile - LAB USE ONLY 08:37:59 JAMMER HOOKER CPT-53482 Lipid - LAB USE ONLY 08:37:58 JAMMER HOOKER CPT-87167 First Vx - Ix admin via ID IM or jet injects without counseling by physician 11:52:31 CDT CPT-26404 Fluzone Preservative Free Intramuscular Suspension 11:52 :31 CDT CPT-77447 Foot, left, comp min 3V - XRAY USE ONLY 09:24:54 CDT CPT-21320 Abd single AP View - XRAY USE ONLY 11:16:17 CDT CPT-96911 T spine AP/ Lat - XRAY USE ONLY 09:34:21 CDT CPT-05822 Chest 2V Frontal and Lat - XRAY USE ONLY 10:48:51 CDT CPT-56363 LS spine comp w obliq 13:28:00 JAMMER HOOKER CPT-J1040 Depo Medrol 80 mg (Methyl Prednisolone Acetate) 10:51: 28 JAMMER HOOKER CPT-J1100 Decadron 8mg (Dexamethasone) 10:51:28 JAMMER HOOKER CPT-92702 Abx/Therapy Injection 10:51:28 JAMMER HOOKER CPT-J1100 Decadron 8mg (Dexamethasone) 21:02:30 JAMMER HOOKER CPT-J1040 Depo Medrol 80 mg (Methyl Prednisolone Acetate) 21:02: 30 JAMMER HOOKER [id number] Event Monitor - MC Transmission 09:12:32 CDT 08/06 [id number] Event Monitor - MC review and interp 09:12:32 CDT [id number] Event Monitor - MC recording 09:12:32 CDT CPT-24169 EKG Trac and Interp 16:50:22 CDT CPT-J1030 Depo Medrol 40 mg (Methyl Prednisolone Acetate) 17:05: 54 CDT CPT-J1100 Decadron 4mg (Dexamethasone) 17:05:54 CDT CPT-83980 Abx/Therapy Injection 17:05:54 CDT CPT-J1100 Decadron 4mg (Dexamethasone) 16:55:28 CDT CPT-J1030 Depo Medrol 40 mg (Methyl Prednisolone Acetate) 16:55: 28 CDT CPT-53440 Ankle Complete - Min 3V 15:58:50 CDT CPT-08638 Knee 3V 15:58:50 CDT CPT-25757 Hip comp min 2V 15:58:50 CDT CPT-J2270 Morphine Sulfate 10 mg 14:25:44 JAMMER HOOKER CPT-J2550 Phenergan 12.5 mg (Promethazine) 14:25:44 JAMMER HOOKER CPT-01740 Abx/Therapy Injection 14:25:44 JAMMER HOOKER CPT-J2550 Phenergan 12.5 mg (Promethazine) 14:08:03 JAMMER HOOKER CPT-J2270 Morphine Sulfate 10 mg 14:08:03 JAMMER HOOKER CPT-90270 Bladder Scan 15:00:38 CDT CPT-TCMM Transitional Care Mgmt-Moderate 09:52:22 CDT CPT-J1030 Depo Medrol 40 mg (Methyl Prednisolone Acetate) 10:55: 18 CDT CPT-J1100 Decadron 4mg (Dexamethasone) 10:55:18 CDT CPT-52359 Abx/Therapy Injection 10:55:18 CDT CPT-J1030 Depo Medrol 40 mg (Methyl Prednisolone Acetate) 10:22: 32 CDT CPT-J1100 Decadron 4mg (Dexamethasone) 10:22:32 CDT CPT-68689 Postop F/U Visit 14:37:13 CDT CPT-63750 Ankle Complete - Min 3V 17:11:58 CDT CPT-12266 Foot comp min 3V 17:11:58 CDT CPT-63492 Bladder Scan 09:56:58 CDT CPT-89685 Postop F/U Visit 09:56:58 CDT CPT-48976 Cystoscopy 09:02:42 CDT CPT-11075 Bladder Scan 09:02:42 CDT CPT-43385 Abd single AP View 16:00:35 CDT CPT-40786 Administration single or combination vaccine inc oral 10 :15:43 CDT CPT-92747 Influenza split virus > age 3 10:15:43 CDT CPT-26712 Nail Avulsion 09:24:57 CDT CPT-OV Office Visit 11:15:41 CDT CPT-12977 Abx/Therapy Injection 10:51:30 CDT CPT-J3301 Kenalog 40 mg (Triamcinolone Acetonide) 10:25:12 CDT CPT-J1100 Decadron 4mg (Dexamethasone) 10:25:12 CDT CPT-90645 Anoscopy diagnostic 10:36:12 CDT CPT-OV Office Visit 15:34:31 CDT CPT-83982 Abx/Therapy Injection 08:21:15 JAMMER HOOKER CPT-J1885 Toradol 60 mg (Ketorolac) 10:46:35 JAMMER HOOKER CPT-OV Office Visit 19:51:16 JAMMER HOOKER CPT-46544 Spec Collection and Handling Fee 14:34:18 JAMMER HOOKER CPT-PV Prev. Care Visit 14:19:18 JAMMER HOOKER CPT-32833 Postop F/U Visit 14:47:51 JAMMER HOOKER CPT-97403 Postop F/U Visit 15:15:14 JAMMER HOOKER CPT-90566 Postop F/U Visit 14:41:43 CDT CPT-45517 Postop F/U Visit 15:47:46 CDT CPT-OV Office Visit 15:27:23 CDT CPT-OV Office Visit 17:20:34 CDT CPT-46834 Abx/Therapy Injection 15:05:57 CDT CPT-J1100 Decadron 8mg (Dexamethasone) 14:44:57 CDT CPT-J1040 Depo Medrol 80 mg (Methyl Prednisolone Acetate) 14:44: 57 CDT CPT-JTINJ Joint Injection 10:17:37 CDT CPT-54868 Administration 2+ single or combination vaccines inc oral 13:01:46 JAMMER HOOKER CPT-99508 Administration single or combination vaccine inc oral 13 :01:46 JAMMER HOOKER CPT-19623 Pneumovax 13:01:46 JAMMER HOOKER CPT-92309 Influenza split virus > age 3 13:01:46 JAMMER HOOKER CPT-88895 Administration single or combination vaccine inc oral 08 :56:49 CDT CPT-33490 Tdap 08:56:49 CDT
--- OUTSIDE RECORDS SUMMARY | 2017-03-21 20:50 | XMS REPORT | Clinical Summary ---
Author Author Admin, MARGRET Organization [employer] Address Unknown Phone Unavailable Allergies, Adverse Reactions, Alerts Allergy Name Reaction Description Start Date Severity Status Provider VALENTIN Critical Active Rodrigo Montemayorl COTTON INSPECTOR CHLORHEXIDINE GLUCONATE tongue and gums swollen Critical Active Hoa Kabaford RMA NORFLEX Rash Critical Active Rowenaina Farshadzell COTTON INSPECTOR TRAZODONE HCL sees things Critical Active Dewayne [...] infarction, hx of 412 Active Hoa Otto [facility] Old myocardial infarction Pelvic pain 789.09 Active Yolande Lindsay MD PhD Abdominal pain, other specified site; multiple sites Edema 782.3 Active Yolande Lindsay MD PhD Edema Rash 782.1 Active Yolande Lindsay MD PhD Rash and other nonspecific skin eruption Back pain, lumbar 724.2 Active Gab Padron MD Lumbago Cough 786.2 Active Jillina Tyrel COTTON INSPECTOR Cough 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 Jillina Frazellilian ZAPATAN 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 Anemia 285.9 Active Gab Padron MD Anemia, unspecified Conjunctivitis 372.30 Active Jillnacho Sarah APRN Conjunctivitis, unspecified Sinusitis 473.9 Active Jillina Frazell COTTON INSPECTOR Unspecified sinusitis (chronic) Nonspecific syndrome suggestive of viral illness 079.99 Active Jillina Siml COTTON INSPECTOR Unspecified viral infection Laryngitis 464.00 Active Jillina Farshadzell COTTON INSPECTOR Acute laryngitis without mention of obstruction Abdominal [...] Abdominal pain, generalized 789.07 Active Silvestrellina Siml COTTON INSPECTOR Abdominal pain, generalized Back pain, thoracic region, left 724.1 Active Jillina Farshadzell COTTON INSPECTOR Pain in thoracic spine Abdominal pain, left lower quadrant 789.04 Active Gab Padron MD Abdominal pain, left lower quadrant Slowing of urinary stream 788.62 Active Gba Padron MD Slowing of urinary stream Interstitial [...] 1/2 tab daily for 2 days PREDNISONE 82815944760 No Longer Active Gab Padron MD Active ZOFRAN ODT 4 MG TBDP 1 po q6hr PRN Nausea ONDANSETRON 34675298467 Active Jillina Frazell COTTON INSPECTOR Active IBUPROFEN 600 MG TAB 1 tablet by mouth every 6 hours for 7 days, then 1 tablet every 6 hours as needed. Take with food IBUPROFEN 66834513336 Active Jillina Frazell COTTON INSPECTOR Active BACTRIM DS 800-160 MG TAB 1 tab by mouth twice daily TRIMETHOPRIM-SULFAMETHOXAZOLE 95895097995 No Longer Active Gab Padron MD Active ADVAIR DISKUS 250-50 MCG/DOSE AEPB 1 puff BID FLUTICASONE- SALMETEROL 62583736622 Active Rodrigo Sarah APRN Active LEVOTHYROXINE SODIUM 75 MCG TABS Take 1 tab daily LEVOTHYROXINE SODIUM 72628927278 No Longer Active Mariana HICKEYA Active SYNTHROID 88 MCG ORAL TABS Take one by mouth daily LEVOTHYROXINE SODIUM 37185855901 Active Mariana HICKEYA Active CHERATUSSIN AC 100-10 MG/5ML SYRP 1 tsp by mouth every 4 hours as needed for cough GUAIFENESIN-CODEINE 97839885431 No Longer Active Gab Padron MD Active POLYTRIM 42662-5.1 UNIT/ML-% SOLN 1 gtt to affected eye q3h x 7 days POLYMYXIN B-TRIMETHOPRIM 43612054923 No Longer Active Gab Padron MD Active FLUTICASONE PROPIONATE 50 MCG/ACT SUSP 1 to 2 sprays each nostril daily 04/21 FLUTICASONE PROPIONATE 98194554207 No Longer Active Gab Padron MD Active TRILEPTAL 600 MG TABS Take one 1 tablet in Am and 1 tablet at night OXCARBAZEPINE 95992763708 Active Gab Padron MD Active CEFDINIR 300 MG CAPS 1 po BID x 10 days CEFDINIR 12771683025 No Longer Active Rodrigo Sarah APRN Active CEFTIN 500 MG TAB 1 twice a day CEFUROXIME AXETIL 91328308154 No Longer Active Gab Padron MD Active AZITHROMYCIN 250 MG TABS 2 po qd x 1 day, then 1 po qd x 4 days AZITHROMYCIN 64371279020 No Longer Active Silvestrellnacho Sarah APRN Active CLARITIN 10 MG TAB 1 tablet by mouth daily as needed for allergies LORATADINE 15104164066 Active Silvestrellnacho Sarah APRN Active OXYCODONE HCL 5 MG ORAL CAPS 1 TAB PO Q HS OXYCODONE HCL 04385842459 No Longer Active Rodrigo Sarah APRN Active NIASPAN 500 MG ORAL CR-TABS 1 pill nightly x 1 week, then 2 pills nightly x 1 week, then 3 pills nightly x 1 week, then 4 pills nightly NIACIN (ANTIHYPERLIPIDEMIC) 16436220507 No Longer Active Rodrigo Farshadhossein ZAPATAN Active NIACIN 500 MG TABS 1 pill by mouth nightly x 1 week, then 2 pills x 1 week, then 3 pills x 1 week, then 4 pills nightly - take after evening meal, with applesauce or an apple NIACIN 47692465206 No Longer Active Yolande Lindsay MD PhD Active FISH OIL 1000 MG CAPS 3 pills daily OMEGA-3 FATTY ACIDS 93653255079 Active Yolande Lindsay MD PhD Active TRIAMCINOLONE ACETONIDE 0.1 % CREA apply bid sparingly to rash TRIAMCINOLONE ACETONIDE 59612644341 Active Yolande Lindsay MD PhD Active FUROSEMIDE 20 MG TAB 1 tablet by mouth daily FUROSEMIDE 81904826284 Active Tisha Lambert APRN Active LISINOPRIL 20 MG ORAL TABS 1 tab by mouth daily LISINOPRIL 52541118441 Active Gab Padron MD Active FUROSEMIDE 20 MG TABS 1 pill by mouth daily, for edema FUROSEMIDE 64227870147 No Longer Active Yolande Lindsay MD PhD Active ATORVASTATIN CALCIUM 10 MG TABS 1 pill by mouth daily, for cholesterol 09/06 ATORVASTATIN CALCIUM 32599199148 Active Gab Padron MD Active CALCIUM 600+D PLUS MINERALS 600-400 MG-UNIT ORAL CHEW 1 tab by mouth daily CALCIUM CARBONATE-VIT D-MIN 77895730308 No Longer Active Yolande Lindsay MD PhD Active CYCLOBENZAPRINE HCL 10 MG TABS 1 tablet by mouth three times daily as needed for muscle spasm/pain CYCLOBENZAPRINE HCL 92455915388 Active Yolande Lindsay MD PhD Active ONDANSETRON 4 MG TBDP 1 q4h PRN nausea ONDANSETRON 63064402951 Active Yolande Lindsay MD PhD Active ADULT ASPIRIN EC LOW STRENGTH 81 MG TBEC Take 1 tablet by mouth daily 2014 ASPIRIN 60810220897 No Longer Active Yolande Lindsay MD PhD Active ZOFRAN ODT 4 MG TBDP 1 pill dissolved by mouth every 4 hours if needed for nausea ONDANSETRON 14622148577 No Longer Active Yolande Lindsay MD PhD Active CEFTIN 500 MG TAB 1 twice a day CEFUROXIME AXETIL 07597805986 No Longer Active Yolande Lindsay MD PhD Active ALBUTEROL SULFATE 0.083 % NEBU SOLN one vial per nebulizer every 4-6 hours as needed ALBUTEROL SULFATE 84158872552 No Longer Active Alexis Ordaz MD Active DOXYCYCLINE HYCLATE 100 MG CAP 1 cap by mouth twice daily DOXYCYCLINE HYCLATE 93673147327 No Longer Active Yolande Lindsay MD PhD Active CYCLOBENZAPRINE HCL 10 MG TABS 1/2 - 1 tab by mouth three times daily if needed for spasms/pain CYCLOBENZAPRINE HCL 50573082774 No Longer Active Yolande Lindsay MD PhD Active AZITHROMYCIN 250 MG TABS 2 pills on day 1, then 1 pill daily x 4 days AZITHROMYCIN 05140758771 No Longer Active Yolande Lindsay MD PhD Active XOPENEX 1.25 MG/3ML NEBU 1 neb every 4 hours if needed for cough/congestion LEVALBUTEROL HCL 70336762074 No Longer Active Yolande Lindsay MD PhD Active DOXYCYCLINE HYCLATE 100 MG TAB 1 tab twice a day for 14 days 2013 DOXYCYCLINE HYCLATE 83134787434 No Longer Active Yolande Lindsay MD PhD Active PREVACID 30 MG CPDR Take 1 tablet by mouth daily-PRN LANSOPRAZOLE 29439836631 No Longer Active Yolande Lindsay MD PhD Active PA VITAMIN D-3 2000 UNIT CAPS 1 CAP PO DAILY CHOLECALCIFEROL 19104777183 No Longer Active Yolande Lindsay MD PhD Active CEFDINIR 300 MG CAPS by mouth twice a day CEFDINIR 93960699912 No Longer Active Gab Padron MD Active TOPAMAX 50 MG TABS 1 PO twice daily TOPIRAMATE 71075089250 Active Yolande Lindsay MD PhD Active AZITHROMYCIN 250 MG TABS 2 po qd x 1 day, then 1 po qd x 4 days AZITHROMYCIN 77548718777 No Longer Active Yolande Lindsay MD PhD Active DICLOFENAC SODIUM 75 MG TBEC 1 tablet by q 12 hours PRN headaches DICLOFENAC SODIUM 97794913202 No Longer Active Yolande Lindsay MD PhD Active FLONASE 50 MCG/ACT SUSP 1 spray each nostril am and hs FLUTICASONE PROPIONATE 92790551386 No Longer Active Todd Callaway MD Active ANUSOL-HC 25 MG SUPPOSITORY 1 rectally twice a day as needed for hemorrhoids HYDROCORTISONE JAYDEN (RECTAL) 55284994890 No Longer Active Yolande Lindsay MD PhD Active ANUSOL-HC 25 MG SUPPOSITORY 1 suppository rectally each evening as needed for anal fissure HYDROCORTISONE JAYDEN (RECTAL) 96524227720 No Longer Active LONNIE Iglesias Active VALIUM 5 MG TAB 1 po 30 minutes prior to your MRI DIAZEPAM 96727107301 No Longer Active LONNIE Iglesias Active METHOCARBAMOL 750 MG TABS 1 PO QID PRN METHOCARBAMOL 79952535404 No Longer Active Daphne Wetzel APRN Active NITROSTAT 0.4 MG SUBL as directed NITROGLYCERIN 75226594245 No Longer Active Rodrigo Sarah APRN Active ROBAXIN-750 750 MG TABS 2 four times a day for 3 days as needed for muscle spasm, then 1 four times a day as needed METHOCARBAMOL 68844315854 No Longer Active Rodrigo Sarah APRN Active HYDROCODONE-ACETAMINOPHEN 5-325 MG TABS 1 q 4-6 hrs prn HYDROCODONE-ACETAMINOPHEN 18797625643 No Longer Active Rodrigo Sarah COTTON INSPECTOR Active VERAPAMIL HCL CR 180 MG CR-TABS TAKE 1 TAB DAILY VERAPAMIL HCL 40009188057 No Longer Active Yolande Lindsay MD PhD Active BACTRIM DS 800-160 MG TAB 1 tab by mouth twice daily TRIMETHOPRIM-SULFAMETHOXAZOLE 45893915179 No Longer Active Yolande Lindsay MD PhD Active NEXIUM 40 MG PACK 1 by mouth daily ESOMEPRAZOLE MAGNESIUM 07444970900 No Longer Active Des Hines MD Active EPIPEN 2-CHARLETTE 0.3 MG/0.3ML OMARI as need for allergic reaction EPINEPHRINE 17634193505 Active Yolande Lindsay MD PhD Active NEXIUM 40 MG CPDR 1 PO Q D DAY ESOMEPRAZOLE MAGNESIUM 67876918892 No Longer Active Sadia Perry RN Active NEXIUM 40 MG PACK 1 by mouth daily NEXIUM 40 MG PACK ESOMEPRAZOLE MAGNESIUM Inactive VERAPAMIL HCL CR 180 MG CR-TABS TAKE 1 TAB DAILY VERAPAMIL HCL CR 180 MG CR-TABS VERAPAMIL HCL Inactive HYDROCODONE-ACETAMINOPHEN 5-325 MG TABS 1 q 4-6 hrs prn HYDROCODONE-ACETAMINOPHEN 5-325 MG TABS 296086 HYDROCODONE-ACETAMINOPHEN Inactive ROBAXIN-750 750 MG TABS 2 four times a day for 3 days as needed for muscle spasm, then 1 four times a day as needed ROBAXIN-750 750 MG TABS 230942 METHOCARBAMOL Inactive NITROSTAT 0.4 MG SUBL as directed NITROSTAT 0.4 MG SUBL NITROGLYCERIN Inactive METHOCARBAMOL 750 MG TABS 1 PO QID PRN METHOCARBAMOL 750 MG TABS 223817 METHOCARBAMOL Inactive VALIUM 5 MG TAB 1 po 30 minutes prior to your MRI VALIUM 5 MG TAB 743718 DIAZEPAM Inactive ANUSOL-HC 25 MG SUPPOSITORY 1 suppository rectally each evening as needed for anal fissure ANUSOL-HC 25 MG SUPPOSITORY 5101012 HYDROCORTISONE JAYDEN (RECTAL) Inactive ANUSOL-HC 25 MG SUPPOSITORY 1 rectally twice a day as needed for hemorrhoids ANUSOL-HC 25 MG SUPPOSITORY 2986974 HYDROCORTISONE JAYDEN (RECTAL) Inactive FLONASE 50 MCG/ACT SUSP 1 spray each nostril am and hs FLONASE 50 MCG/ACT SUSP FLUTICASONE PROPIONATE Inactive DICLOFENAC SODIUM 75 MG TBEC 1 tablet by q 12 hours PRN headaches DICLOFENAC SODIUM 75 MG TBEC 730899 DICLOFENAC SODIUM Inactive PA VITAMIN D-3 2000 UNIT CAPS 1 CAP PO DAILY PA VITAMIN D-3 2000 UNIT CAPS CHOLECALCIFEROL Inactive PREVACID 30 MG CPDR Take 1 tablet by mouth daily-PRN PREVACID 30 MG CPDR 641263 LANSOPRAZOLE Inactive DOXYCYCLINE HYCLATE 100 MG TAB 1 tab twice a day for 14 days 2013 DOXYCYCLINE HYCLATE 100 MG TAB 0762577 DOXYCYCLINE HYCLATE Inactive XOPENEX 1.25 MG/3ML NEBU 1 neb every 4 hours if needed for cough/congestion XOPENEX 1.25 MG/3ML NEBU 628306 LEVALBUTEROL HCL Inactive CYCLOBENZAPRINE HCL 10 MG TABS 1/2 - 1 tab by mouth three times daily if needed for spasms/pain CYCLOBENZAPRINE HCL 10 MG TABS 246445 CYCLOBENZAPRINE HCL Inactive ALBUTEROL SULFATE 0.083 % NEBU SOLN one vial per nebulizer every 4-6 hours as needed ALBUTEROL SULFATE 0.083 % NEBU SOLN 509866 ALBUTEROL SULFATE Inactive CEFTIN 500 MG TAB 1 twice a day CEFTIN 500 MG TAB 977678 CEFUROXIME AXETIL Inactive ZOFRAN ODT 4 MG TBDP 1 pill dissolved by mouth every 4 hours if needed for nausea ZOFRAN ODT 4 MG TBDP 351502 ONDANSETRON Inactive ADULT ASPIRIN EC LOW STRENGTH 81 MG TBEC Take 1 tablet by mouth daily 2014 ADULT ASPIRIN EC LOW STRENGTH 81 MG TBEC 154569 ASPIRIN Inactive CALCIUM 600+D PLUS MINERALS 600-400 [...] or an apple NIACIN 500 MG TABS 925890 NIACIN Inactive NIASPAN 500 MG ORAL CR-TABS 1 pill nightly x 1 week, then 2 pills nightly x 1 week, then 3 pills nightly x 1 week, then 4 pills nightly NIASPAN 500 MG ORAL CR-TABS NIACIN (ANTIHYPERLIPIDEMIC) Inactive OXYCODONE HCL 5 MG ORAL CAPS 1 TAB PO Q HS OXYCODONE HCL 5 MG ORAL CAPS 1809719 OXYCODONE HCL Inactive FLUTICASONE PROPIONATE 50 MCG/ACT SUSP 1 to 2 sprays each nostril daily 04/21 FLUTICASONE PROPIONATE 50 MCG/ACT SUSP 313768 FLUTICASONE PROPIONATE Inactive POLYTRIM 50952-0.1 UNIT/ML-% SOLN 1 gtt to affected eye q3h x 7 days POLYTRIM 12873-8.1 UNIT/ML-% SOLN 925623 POLYMYXIN B- TRIMETHOPRIM Inactive CHERATUSSIN AC 100-10 MG/5ML SYRP 1 tsp by mouth every 4 hours as needed for cough CHERATUSSIN AC 100-10 MG/5ML SYRP 060103 GUAIFENESIN-CODEINE Inactive LEVOTHYROXINE SODIUM 75 MCG TABS Take 1 tab daily LEVOTHYROXINE SODIUM 75 MCG TABS 911806 LEVOTHYROXINE SODIUM Inactive BACTRIM DS 800-160 MG TAB 1 tab by mouth twice daily BACTRIM DS 800-160 MG TAB 19820606 TRIMETHOPRIM-SULFAMETHOXAZOLE Inactive AZITHROMYCIN 250 MG TABS 2 po qd x 1 day, then 1 po qd x 4 days AZITHROMYCIN 250 MG TABS 4258777 AZITHROMYCIN Inactive CEFDINIR 300 MG CAPS by mouth twice a day CEFDINIR 300 MG CAPS 411146 CEFDINIR Inactive AZITHROMYCIN 250 MG TABS 2 pills on day 1, then 1 pill daily x 4 days AZITHROMYCIN 250 MG TABS 5450189 AZITHROMYCIN Inactive DOXYCYCLINE HYCLATE 100 MG CAP 1 cap by mouth twice daily DOXYCYCLINE HYCLATE 100 MG CAP 9395685 DOXYCYCLINE HYCLATE Inactive FUROSEMIDE 20 MG TABS 1 pill by mouth daily, for edema FUROSEMIDE 20 MG TABS 567794 FUROSEMIDE Inactive AZITHROMYCIN 250 MG TABS 2 po qd x 1 day, then 1 po qd x 4 days AZITHROMYCIN 250 MG TABS 0019789 AZITHROMYCIN Inactive CEFTIN 500 MG TAB 1 twice a day CEFTIN 500 MG TAB 476052 CEFUROXIME AXETIL Inactive CEFDINIR 300 MG CAPS [...] for 2 days PREDNISONE 20 MG TAB 514556 PREDNISONE Inactive Immunizations Vaccine Administration Date Value Standard Description Seasonal influenza vaccine, injectable, containing preservative, for > 3 years old (Afluria, FluLaval, Fluzone, Fluvirin, Fluarix, Agriflu(>=18 yo)) Fluzone (>3 yrs.) [WIX195] Influenza, seasonal, injectable influenza immunization (Flu Vax) has been administered Influenza - Unspecified Formulation [CVX88] influenza virus vaccine, unspecified formulation Seasonal influenza vaccine, injectable, containing preservative, for > 3 years old (Afluria, FluLaval, Fluzone, Fluvirin, Fluarix, Agriflu(>=18 yo)) Fluzone (>3 yrs.) [HUV138] Influenza, seasonal, injectable pneumococcal immunization administered Pneumovax 23 [CVX33] pneumococcal polysaccharide vaccine, 23 valent dT (Diphtheria and Tetanus) booster given given Td(adult) unspecified formulation Boostrix (Tetanus toxoid, reduced diphtheria toxoid and acellular pertussis vaccine, adsorbed), booster Boostrix [BVL810] tetanus toxoid, reduced diphtheria toxoid, and acellular [...] Panel - Chemistry sodium, serum 142 mmol/L 456-713 1317/06/30 potassium, serum 4.4 mmol/L 3.5-5.2 chloride, serum 108 mmol/L 98-107 carbon dioxide, venous blood 25.1 mmol/L 21.0-32.0 blood glucose 82 mg/dL 65-110 calcium, serum 9.1 mg/dL 8.5-10.1 urea nitrogen, blood 18 mg/dL 7-18 creatinine, serum 1.31 mg/dL 0.55-1.30 Lab Report: [facility] Advanced Lipid and Inlammation Panel /62612 - Chemistry cholesterol, serum 148 mg/dL 925-333 8555/09/02 HDL cholesterol, serum 55 mg/dL > OR=46 [...] (L) - Chemistry sodium, serum 145 mmol/L 724-281 2140/09/02 potassium, serum 4.6 mmol/L 3.5-5.2 chloride, serum [...] Rate - Chemistry sodium, serum 139 mmol/L 444-422 5043/03/24 carbon dioxide, venous blood 22.4 mmol/L 21.0-32.0 [...] ... - Chemistry sodium, serum 143 mmol/L 474-320 1227/05/02 carbon dioxide, venous blood 25.6 mmol/L 21.0-32.0 [...] Negative mg/dL Negative sodium, serum 142 mmol/L 179-504 3096/07/18 carbon dioxide, venous blood 27.8 mmol/L 21.0-32.0 [...] mg/dL Encounters Code Encounter Date Provider Facility CPT-01127 Level 3 Est. Patient 11:01:51 CDT Gab Padron MD [facility] CPT-36126 Level 3 Est. Patient 15:27:02 CDT Jared Og MD [facility] [place] CPT-23976 Level 4 Est. Patient 09:25:27 CDT Gab Padron MD [facility] CPT-86085 Level 3 Est. Patient 10:29:41 CDT Rodrigo Sarah APRN [facility] CPT-69993 Level 4 Est. Patient 17:51:05 CDT Gab Padron MD [facility]-92602 Level 3 Est. Patient 14:18:08 CDT Gab Padron MD [facility]-62380 Level 4 Est. Patient 10:18:54 CDT Gab Padron MD [facility]-47006 Level 3 Est. Patient 11:30:07 CDT Rodrigo Sarah APRN [facility]-18745 Level 4 Est. Patient 21:02:30 RAMPMAN Gab Padron MD [facility]-42508 Level 3 Est. Patient 11:02:19 RAMPMAN Gab Padron MD [facility] [place]-42619 Level 4 Est. Patient 22:24:31 RAMPMAN Gab Padron MD [facility] [place]-07960 Level 3 Est. Patient 18:33:46 RAMPMAN Gab Padron MD [facility] [place]-48313 Level 3 Est. Patient 16:19:11 CDT Yolande Lindsay MD [facility]-41114 Level 3 Est. Patient 18:59:14 CDT Yolande Lindsay MD [facility]-18839 Level 4 Est. Patient 21:29:26 CDT Yolande Lindsay MD [facility]-29918 Level 3 Est. Patient 07:37:45 CDT Yolande Lindsay MD [facility]-88688 Level 3 Est. Patient 17:03:46 CDT Yolande Lindsay MD [facility]-95804 Level 4 Est. Patient 20:02:13 RAMPMAN Yolande Lindsay MD [facility]-03747 Level 3 Est. Patient 16:02:07 RAMPMAN Alexis Ordaz MD [facility] CPT-98965 Level 3 Est. Patient 12:41:24 RAMPMAN Yolande Lindsay MD [facility] CPT-81625 Level 3 Est. Patient 15:41:20 RAMPMAN Yolande Lindsay MD [facility]-35647 Level 3 Est. Patient 13:20:02 RAMPMAN Yolande Lindsay MD [facility]-56151 Level 3 Est. Patient 15:00:38 CDT Jared Og MD [facility] CPT-11348 Level 3 Est. Patient 10:22:32 CDT Yolande Lindsay MD [facility]-20372 Level 3 Est. Patient 17:12:58 CDT Yolande Lindsay MD [facility] CPT-72446 Level 4 Est. Patient 13:30:58 CDT Yolande Lindsay MD [facility] CPT-95830 Level 4 New Patient 09:02:42 CDT Jared Og MD [facility] CPT-32557 Level 3 Est. Patient 08:19:07 CDT Yolande Lindsay MD [facility] CPT-20097 Level 3 Est. Patient 12:00:13 RAMPMAN Gab Padron MD [facility] CPT-42222 Level 3 Est. Patient 16:15:23 RAMPMAN Yolande Lindsay MD [facility] CPT-11235 Level 2 Est. Patient 19:47:15 CDT Yolande Lindsay MD [facility] CPT-59475 Level 3 Est. Patient 21:38:31 CDT Yolande Lindsay MD [facility]-45464 Level 3 Est. Patient 10:25:12 CDT Adiel PERAZA [facility] CPT-59447 Level 4 Est. Patient 10:51:58 CDT Yolande Lindsay MD [facility]-71083 Level 3 Est. Patient 14:04:55 RAMPMAN Rodrigo Sarah [facility]-59690 Level 3 Est. Patient 10:46:35 RAMPMAN Rodrigo Sarah [facility]-76186 Level 3 Est. Patient 14:24:37 RAMPMAN Yolande Lindsay MD [facility]-92666 Level 3 Est. Patient 17:41:58 RAMPMAN Yolande Lindsay MD [facility]-26982 Level 2 Est. Patient 22:01:41 RAMPMAN Rodrigo Sarah [facility]-94120 Level 2 Est. Patient 22:01:11 RAMPMAN Rodrigo Sarah [facility]-94170 Level 3 Est. Patient 10:12:29 RAMPMAN Rodrigo Sarah [facility] CPT-52705 Level 3 Est. Patient 11:05:44 CDT Alexis Ordaz MD [facility] [place]-09611 Level 3 Est. Patient 14:57:20 CDT Yolande Lindsay MD [facility]-72289 Level 3 Est. Patient 14:40:57 CDT Yolande Lindsay MD [facility]-23955 Level 3 Est. Patient 20:55:40 CDT Yolande Lindsay MD [facility]-37213 Level 3 Est. Patient 12:42:38 RAMPMAN Yolande Lindsay MD [facility]64797 Level 3 Est. Patient 11:54:49 RAMPMAN Des Hines MD [facility] [place]-60339 Level 3 Est. Patient 17:06:38 CDT Dewayne PERAZA [facility] Procedures Code Procedure Name Date Entry Date Standard Description CPT-36315 Foot, left, comp min 3V - XRAY USE ONLY 09:24:54 CDT CPT-45287 Abd single AP View - XRAY USE ONLY 11:16:17 CDT CPT-25023 T spine AP/ Lat - XRAY USE ONLY 09:34:21 CDT CPT-46964 Chest 2V Frontal and Lat - XRAY USE ONLY 10:48:51 CDT CPT-77416 LS spine comp w obliq 13:28:00 RAMPMAN CPT-J1040 Depo Medrol 80 mg (Methyl Prednisolone Acetate) 10:51: 28 RAMPMAN CPT-J1100 Decadron 8mg (Dexamethasone) 10:51:28 RAMPMAN CPT-04779 Abx/Therapy Injection 10:51:28 RAMPMAN CPT-J1100 Decadron 8mg (Dexamethasone) 21:02:30 RAMPMAN CPT-J1040 Depo Medrol 80 mg (Methyl Prednisolone Acetate) 21:02: 30 RAMPMAN [id number] Event Monitor - MC Transmission 09:12:32 CDT 08/06 [id number] Event Monitor - MC review and interp 09:12:32 CDT [id number] Event Monitor - MC recording 09:12:32 CDT CPT-99207 EKG Trac and Interp 16:50:22 CDT CPT-J1030 Depo Medrol 40 mg (Methyl Prednisolone Acetate) 17:05: 54 CDT CPT-J1100 Decadron 4mg (Dexamethasone) 17:05:54 CDT CPT-48479 Abx/Therapy Injection 17:05:54 CDT CPT-J1100 Decadron 4mg (Dexamethasone) 16:55:28 CDT CPT-J1030 Depo Medrol 40 mg (Methyl Prednisolone Acetate) 16:55: 28 CDT CPT-74579 Ankle Complete - Min 3V 15:58:50 CDT CPT-28966 Knee 3V 15:58:50 CDT CPT-17714 Hip comp min 2V 15:58:50 CDT CPT-J2270 Morphine Sulfate 10 mg 14:25:44 RAMPMAN CPT-J2550 Phenergan 12.5 mg (Promethazine) 14:25:44 RAMPMAN CPT-53328 Abx/Therapy Injection 14:25:44 RAMPMAN CPT-J2550 Phenergan 12.5 mg (Promethazine) 14:08:03 RAMPMAN CPT-J2270 Morphine Sulfate 10 mg 14:08:03 RAMPMAN CPT-03864 Bladder Scan 15:00:38 CDT CPT-TCMM Transitional Care Mgmt-Moderate 09:52:22 CDT CPT-J1030 Depo Medrol 40 mg (Methyl Prednisolone Acetate) 10:55: 18 CDT CPT-J1100 Decadron 4mg (Dexamethasone) 10:55:18 CDT CPT-16674 Abx/Therapy Injection 10:55:18 CDT CPT-J1030 Depo Medrol 40 mg (Methyl Prednisolone Acetate) 10:22: 32 CDT CPT-J1100 Decadron 4mg (Dexamethasone) 10:22:32 CDT CPT-97841 Postop F/U Visit 14:37:13 CDT CPT-61134 Ankle Complete - Min 3V 17:11:58 CDT CPT-03525 Foot comp min 3V 17:11:58 CDT CPT-48395 Bladder Scan 09:56:58 CDT CPT-93930 Postop F/U Visit 09:56:58 CDT CPT-14611 Cystoscopy 09:02:42 CDT CPT-29918 Bladder Scan 09:02:42 CDT CPT-44937 Abd single AP View 16:00:35 CDT CPT-55486 Administration single or combination vaccine inc oral 10 :15:43 CDT CPT-94717 Influenza split virus > age 3 10:15:43 CDT CPT-51186 Nail Avulsion 09:24:57 CDT CPT-OV Office Visit 11:15:41 CDT CPT-39089 Abx/Therapy Injection 10:51:30 CDT CPT-J3301 Kenalog 40 mg (Triamcinolone Acetonide) 10:25:12 CDT CPT-J1100 Decadron 4mg (Dexamethasone) 10:25:12 CDT CPT-02190 Anoscopy diagnostic 10:36:12 CDT CPT-OV Office Visit 15:34:31 CDT CPT-87158 Abx/Therapy Injection 08:21:15 RAMPMAN CPT-J1885 Toradol 60 mg (Ketorolac) 10:46:35 RAMPMAN CPT-OV Office Visit 19:51:16 RAMPMAN CPT-71760 Spec Collection and Handling Fee 14:34:18 RAMPMAN CPT-PV Prev. Care Visit 14:19:18 RAMPMAN CPT-70209 Postop F/U Visit 14:47:51 RAMPMAN CPT-05869 Postop F/U Visit 15:15:14 RAMPMAN CPT-97155 Postop F/U Visit 14:41:43 CDT CPT-73705 Postop F/U Visit 15:47:46 CDT CPT-OV Office Visit 15:27:23 CDT CPT-OV Office Visit 17:20:34 CDT CPT-60361 Abx/Therapy Injection 15:05:57 CDT CPT-J1100 Decadron 8mg (Dexamethasone) 14:44:57 CDT CPT-J1040 Depo Medrol 80 mg (Methyl Prednisolone Acetate) 14:44: 57 CDT CPT-JTINJ Joint Injection 10:17:37 CDT CPT-46181 Administration 2+ single or combination vaccines inc oral 13:01:46 RAMPMAN CPT-22422 Administration single or combination vaccine inc oral 13 :01:46 RAMPMAN CPT-98163 Pneumovax 13:01:46 RAMPMAN CPT-70211 Influenza split virus > age 3 13:01:46 RAMPMAN CPT-20883 Administration single or combination vaccine inc oral 08 :56:49 CDT CPT-55719 Tdap 08:56:49 CDT
--- OUTSIDE RECORDS SUMMARY | 2017-03-21 20:52 | XMS REPORT ---
Author Author [facility] [employer] [facility] Medical Staff Organization [facility] Address [address] [id number] Phone [phone] Care Team Providers Care Utilities Ground Worker Name Role Phone REGAN HUTSON, EVELYN PP [phone] Summary purpose TRANSITION OF CARE AUTO GENERATION [...]
--- OUTSIDE RECORDS SUMMARY | 2017-03-21 20:52 | XMS REPORT | Clinical Summary ---
Author Author Admin, E Organization [facility] Address Unknown Phone Unavailable Allergies, Adverse Reactions, Alerts Allergy Name Reaction Description Start Date Severity Status Provider VALENTIN Critical Active oRdrigo Fracharlottel TRIAGE REGISTERED NURSE CHLORHEXIDINE GLUCONATE tongue and gums swollen Critical Active Hoadante Otto RMA NORFLEX Rash Critical Active Silvestrellina Frazell TRIAGE REGISTERED NURSE TRAZODONE HCL sees things Critical Active Dewayne [...] pain, unspecified site PLANTAR FASCIITIS 728.71 Resolved oYlande Lindsay MD PhD Plantar fascial fibromatosis UTI [...] MD Lumbago Cough 786.2 Active Jillina Tyrel TRIAGE REGISTERED NURSE Cough 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 Jillina Frazellilian TRIAGE REGISTERED NURSE 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 Anemia 285.9 Active Gab Padron MD Anemia, unspecified Conjunctivitis 372.30 Active Jillnacho Sarah APRN Conjunctivitis, unspecified Sinusitis 473.9 Active Silvestrellina Frazell TRIAGE REGISTERED NURSE Unspecified sinusitis (chronic) Nonspecific syndrome suggestive of viral illness 079.99 Active Rodrigo Sarah TRIAGE REGISTERED NURSE Unspecified viral infection Laryngitis 464.00 Active Rodrigo Sarah TRIAGE REGISTERED NURSE Acute laryngitis without mention of obstruction Abdominal [...] MCG/DOSE AEPB 1 puff BID FLUTICASONE- SALMETEROL 24524674168 Active Rodrigo Sarah TRIAGE REGISTERED NURSE Active LEVOTHYROXINE SODIUM 75 MCG TABS Take 1 tab daily LEVOTHYROXINE SODIUM 66113787530 No Longer Active Mariana FLEMING Active SYNTHROID 88 MCG ORAL TABS Take one by mouth daily LEVOTHYROXINE SODIUM 11536834418 Active Mariana FLEMING Active CHERATUSSIN AC 100-10 MG/5ML SYRP 1 tsp by mouth every 4 hours as needed for cough GUAIFENESIN-CODEINE 76431774207 No Longer Active Gab Padron MD Active POLYTRIM 88593-3.1 UNIT/ML-% SOLN 1 gtt to affected eye q3h x 7 days POLYMYXIN B-TRIMETHOPRIM 59001823837 No Longer Active Gab Padron MD Active FLUTICASONE PROPIONATE 50 MCG/ACT SUSP 1 to 2 sprays each nostril daily 04/21 FLUTICASONE PROPIONATE 43490284931 No Longer Active Gab Padron MD Active TRILEPTAL 600 MG TABS Take one 1 tablet in Am and 1 tablet at night OXCARBAZEPINE 08343152438 Active Gab Padron MD Active CEFDINIR 300 MG CAPS 1 po BID x 10 days CEFDINIR 96894322800 No Longer Active Rodrigo Sarah APRN Active CEFTIN 500 MG TAB 1 twice a day CEFUROXIME AXETIL 71874436008 No Longer Active Gab Padron MD Active AZITHROMYCIN 250 MG TABS 2 po qd x 1 day, then 1 po qd x 4 days AZITHROMYCIN 71107354305 No Longer Active Rodrigo Sarah APRN Active CLARITIN 10 MG TAB 1 tablet by mouth daily as needed for allergies LORATADINE 34971947129 Active Rodrigo Sarah APRN Active OXYCODONE HCL 5 MG ORAL CAPS 1 TAB PO Q HS OXYCODONE HCL 73427361623 No Longer Active Rodrigo Sarah APRN Active NIASPAN 500 MG ORAL CR-TABS 1 pill nightly x 1 week, then 2 pills nightly x 1 week, then 3 pills nightly x 1 week, then 4 pills nightly NIACIN (ANTIHYPERLIPIDEMIC) 43300869851 No Longer Active Rodrigo Sarah APRN Active NIACIN 500 MG TABS 1 pill by mouth nightly x 1 week, then 2 pills x 1 week, then 3 pills x 1 week, then 4 pills nightly - take after evening meal, with applesauce or an apple NIACIN 96603409712 No Longer Active Yolande Lindsay MD PhD Active FISH OIL 1000 MG CAPS 3 pills daily OMEGA-3 FATTY ACIDS 29963042629 Active Yolande Lindsay MD PhD Active TRIAMCINOLONE ACETONIDE 0.1 % CREA apply bid sparingly to rash TRIAMCINOLONE ACETONIDE 86283013605 Active Yolande Lindsay MD PhD Active FUROSEMIDE 20 MG TAB 1 tablet by mouth daily FUROSEMIDE 65019031914 Active Tisha Lambert TRIAGE REGISTERED NURSE Active LISINOPRIL 20 MG ORAL TABS 1 tab by mouth daily LISINOPRIL 38432249447 Active Gab Padron MD Active FUROSEMIDE 20 MG TABS 1 pill by mouth daily, for edema FUROSEMIDE 44253408148 No Longer Active Yolande Lindsay MD PhD Active ATORVASTATIN CALCIUM 10 MG TABS 1 pill by mouth daily, for cholesterol 09/06 ATORVASTATIN CALCIUM 13995989395 Active Gab Padron MD Active CALCIUM 600+D PLUS MINERALS 600-400 MG-UNIT ORAL CHEW 1 tab by mouth daily CALCIUM CARBONATE-VIT D-MIN 14310615566 No Longer Active Yolande Lindsay MD PhD Active CYCLOBENZAPRINE HCL 10 MG TABS 1 tablet by mouth three times daily as needed for muscle spasm/pain CYCLOBENZAPRINE HCL 13600287176 Active Yolande Lindsay MD PhD Active ONDANSETRON 4 MG TBDP 1 q4h PRN nausea ONDANSETRON 54848048806 Active Yolande Lindsay MD PhD Active ADULT ASPIRIN EC LOW STRENGTH 81 MG TBEC Take 1 tablet by mouth daily 2014 ASPIRIN 54928771726 No Longer Active Yolande Lindsay MD PhD Active ZOFRAN ODT 4 MG TBDP 1 pill dissolved by mouth every 4 hours if needed for nausea ONDANSETRON 46909048105 No Longer Active Yolande Lindsay MD PhD Active CEFTIN 500 MG TAB 1 twice a day CEFUROXIME AXETIL 40972172225 No Longer Active Yolande Lindsay MD PhD Active ALBUTEROL SULFATE 0.083 % NEBU SOLN one vial per nebulizer every 4-6 hours as needed ALBUTEROL SULFATE 72162035341 No Longer Active Alexis Ordaz MD Active DOXYCYCLINE HYCLATE 100 MG CAP 1 cap by mouth twice daily DOXYCYCLINE HYCLATE 75853460166 No Longer Active Yolande Lindsay MD PhD Active CYCLOBENZAPRINE HCL 10 MG TABS 1/2 - 1 tab by mouth three times daily if needed for spasms/pain CYCLOBENZAPRINE HCL 28021491646 No Longer Active Yolande Lindsay MD PhD Active AZITHROMYCIN 250 MG TABS 2 pills on day 1, then 1 pill daily x 4 days AZITHROMYCIN 67059181182 No Longer Active Yolande Lindsay MD PhD Active XOPENEX 1.25 MG/3ML NEBU 1 neb every 4 hours if needed for cough/congestion LEVALBUTEROL HCL 83245704588 No Longer Active Yolande Lindsay MD PhD Active DOXYCYCLINE HYCLATE 100 MG TAB 1 tab twice a day for 14 days 2013 DOXYCYCLINE HYCLATE 73988719362 No Longer Active Yolande Lindsay MD PhD Active PREVACID 30 MG CPDR Take 1 tablet by mouth daily-PRN LANSOPRAZOLE 64033923769 No Longer Active Yolande Lindsay MD PhD Active PA VITAMIN D-3 2000 UNIT CAPS 1 CAP PO DAILY CHOLECALCIFEROL 67811178351 No Longer Active Yolande Lindsay MD PhD Active CEFDINIR 300 MG CAPS by mouth twice a day CEFDINIR 05036979043 No Longer Active Gab Padron MD Active TOPAMAX 50 MG TABS 1 PO twice daily TOPIRAMATE 95896722496 Active Yolande Lindsay MD PhD Active AZITHROMYCIN 250 MG TABS 2 po qd x 1 day, then 1 po qd x 4 days AZITHROMYCIN 44366125011 No Longer Active Yolande Lindsay MD PhD Active DICLOFENAC SODIUM 75 MG TBEC 1 tablet by q 12 hours PRN headaches DICLOFENAC SODIUM 88077418275 No Longer Active Yolande Lindsay MD PhD Active FLONASE 50 MCG/ACT SUSP 1 spray each nostril am and hs FLUTICASONE PROPIONATE 47498701532 No Longer Active Todd Callaway MD Active ANUSOL-HC 25 MG SUPPOSITORY 1 rectally twice a day as needed for hemorrhoids HYDROCORTISONE JAYDEN (RECTAL) 03876497338 No Longer Active Yolande Lindsay MD PhD Active ANUSOL-HC 25 MG SUPPOSITORY 1 suppository rectally each evening as needed for anal fissure HYDROCORTISONE JAYDEN (RECTAL) 66603672656 No Longer Active LONNIE Iglesias Active VALIUM 5 MG TAB 1 po 30 minutes prior to your MRI DIAZEPAM 44164740006 No Longer Active LONNIE Iglesias Active METHOCARBAMOL 750 MG TABS 1 PO QID PRN METHOCARBAMOL 74981197638 No Longer Active Daphne Wetzel APRN Active NITROSTAT 0.4 MG SUBL as directed NITROGLYCERIN 56481447646 No Longer Active Rodrigo Sarah APRN Active ROBAXIN-750 750 MG TABS 2 four times a day for 3 days as needed for muscle spasm, then 1 four times a day as needed METHOCARBAMOL 61108985935 No Longer Active Rodrigo Sarah APRN Active HYDROCODONE-ACETAMINOPHEN 5-325 MG TABS 1 q 4-6 hrs prn HYDROCODONE-ACETAMINOPHEN 45738834687 No Longer Active Rodrigo Sarah APRN Active VERAPAMIL HCL CR 180 MG CR-TABS TAKE 1 TAB DAILY VERAPAMIL HCL 27246819534 No Longer Active Yolande Lindsay MD PhD Active BACTRIM DS 800-160 MG TAB 1 tab by mouth twice daily TRIMETHOPRIM-SULFAMETHOXAZOLE 75827664733 No Longer Active Yolande Lindsay MD PhD Active NEXIUM 40 MG PACK 1 by mouth daily ESOMEPRAZOLE MAGNESIUM 02225570041 No Longer Active Des Hines MD Active EPIPEN 2-CHARLETTE 0.3 MG/0.3ML OMARI as need for allergic reaction EPINEPHRINE 17632409672 Active Yolande Lindsay MD PhD Active NEXIUM 40 MG CPDR 1 PO Q D DAY ESOMEPRAZOLE MAGNESIUM 83115547134 No Longer Active Sadia Perry RN Active NEXIUM 40 MG PACK 1 by mouth daily NEXIUM 40 MG PACK ESOMEPRAZOLE MAGNESIUM Inactive VERAPAMIL HCL CR 180 MG CR-TABS TAKE 1 TAB DAILY VERAPAMIL HCL CR 180 MG CR-TABS VERAPAMIL HCL Inactive HYDROCODONE-ACETAMINOPHEN 5-325 MG TABS 1 q 4-6 hrs prn HYDROCODONE-ACETAMINOPHEN 5-325 MG TABS 071098 HYDROCODONE-ACETAMINOPHEN Inactive ROBAXIN-750 750 MG TABS 2 four times a day for 3 days as needed for muscle spasm, then 1 four times a day as needed ROBAXIN-750 750 MG TABS 950675 METHOCARBAMOL Inactive NITROSTAT 0.4 MG SUBL as directed NITROSTAT 0.4 MG SUBL NITROGLYCERIN Inactive METHOCARBAMOL 750 MG TABS 1 PO QID PRN METHOCARBAMOL 750 MG TABS 622556 METHOCARBAMOL Inactive VALIUM 5 MG TAB 1 po 30 minutes prior to your MRI VALIUM 5 MG TAB 903951 DIAZEPAM Inactive ANUSOL-HC 25 MG SUPPOSITORY 1 suppository rectally each evening as needed for anal fissure ANUSOL-HC 25 MG SUPPOSITORY 7299811 HYDROCORTISONE JAYDEN (RECTAL) Inactive ANUSOL-HC 25 MG SUPPOSITORY 1 rectally twice a day as needed for hemorrhoids ANUSOL-HC 25 MG SUPPOSITORY 5107819 HYDROCORTISONE JAYDEN (RECTAL) Inactive FLONASE 50 MCG/ACT SUSP 1 spray each nostril am and hs FLONASE 50 MCG/ACT SUSP 122217 FLUTICASONE PROPIONATE Inactive DICLOFENAC SODIUM 75 MG TBEC 1 tablet by q 12 hours PRN headaches DICLOFENAC SODIUM 75 MG TBEC 947820 DICLOFENAC SODIUM Inactive PA VITAMIN D-3 2000 UNIT CAPS 1 CAP PO DAILY PA VITAMIN D-3 2000 UNIT CAPS CHOLECALCIFEROL Inactive PREVACID 30 MG CPDR Take 1 tablet by mouth daily-PRN PREVACID 30 MG CPDR 237849 LANSOPRAZOLE Inactive DOXYCYCLINE HYCLATE 100 MG TAB 1 tab twice a day for 14 days 2013 DOXYCYCLINE HYCLATE 100 MG TAB 9883165 DOXYCYCLINE HYCLATE Inactive XOPENEX 1.25 MG/3ML NEBU 1 neb every 4 hours if needed for cough/congestion XOPENEX 1.25 MG/3ML NEBU 038059 LEVALBUTEROL HCL Inactive CYCLOBENZAPRINE HCL 10 MG TABS 1/2 - 1 tab by mouth three times daily if needed for spasms/pain CYCLOBENZAPRINE HCL 10 MG TABS 159267 CYCLOBENZAPRINE HCL Inactive ALBUTEROL SULFATE 0.083 % NEBU SOLN one vial per nebulizer every 4-6 hours as needed ALBUTEROL SULFATE 0.083 % NEBU SOLN 861047 ALBUTEROL SULFATE Inactive CEFTIN 500 MG TAB 1 twice a day CEFTIN 500 MG TAB 434046 CEFUROXIME AXETIL Inactive ZOFRAN ODT 4 MG TBDP 1 pill dissolved by mouth every 4 hours if needed for nausea ZOFRAN ODT 4 MG TBDP 524207 ONDANSETRON Inactive ADULT ASPIRIN EC LOW STRENGTH 81 MG TBEC Take 1 tablet by mouth daily 2014 ADULT ASPIRIN EC LOW STRENGTH 81 MG TBEC 899788 ASPIRIN Inactive CALCIUM 600+D PLUS MINERALS 600-400 [...] or an apple NIACIN 500 MG TABS 390725 NIACIN Inactive NIASPAN 500 MG ORAL CR-TABS 1 pill nightly x 1 week, then 2 pills nightly x 1 week, then 3 pills nightly x 1 week, then 4 pills nightly NIASPAN 500 MG ORAL CR-TABS NIACIN (ANTIHYPERLIPIDEMIC) Inactive OXYCODONE HCL 5 MG ORAL CAPS 1 TAB PO Q HS OXYCODONE HCL 5 MG ORAL CAPS 3899046 OXYCODONE HCL Inactive FLUTICASONE PROPIONATE 50 MCG/ACT SUSP 1 to 2 sprays each nostril daily 04/21 FLUTICASONE PROPIONATE 50 MCG/ACT SUSP 874589 FLUTICASONE PROPIONATE Inactive POLYTRIM 61436-7.1 UNIT/ML-% SOLN 1 gtt to affected eye q3h x 7 days POLYTRIM 74639-3.1 UNIT/ML-% SOLN 870177 POLYMYXIN B- TRIMETHOPRIM Inactive CHERATUSSIN AC 100-10 MG/5ML SYRP 1 tsp by mouth every 4 hours as needed for cough CHERATUSSIN AC 100-10 MG/5ML SYRP 798987 GUAIFENESIN-CODEINE Inactive LEVOTHYROXINE SODIUM 75 MCG TABS Take 1 tab daily LEVOTHYROXINE SODIUM 75 MCG TABS 652995 LEVOTHYROXINE SODIUM Inactive BACTRIM DS 800-160 MG TAB 1 tab by mouth twice daily BACTRIM DS 800-160 MG TAB 852237 TRIMETHOPRIM-SULFAMETHOXAZOLE Inactive AZITHROMYCIN 250 MG TABS 2 po qd x 1 day, then 1 po qd x 4 days AZITHROMYCIN 250 MG TABS 4912430 AZITHROMYCIN Inactive CEFDINIR 300 MG CAPS by mouth twice a day CEFDINIR 300 MG CAPS 20020708 CEFDINIR Inactive AZITHROMYCIN 250 MG TABS 2 pills on day 1, then 1 pill daily x 4 days AZITHROMYCIN 250 MG TABS 9769144 AZITHROMYCIN Inactive DOXYCYCLINE HYCLATE 100 MG CAP 1 cap by mouth twice daily DOXYCYCLINE HYCLATE 100 MG CAP 7485523 DOXYCYCLINE HYCLATE Inactive FUROSEMIDE 20 MG TABS 1 pill by mouth daily, for edema FUROSEMIDE 20 MG TABS 273620 FUROSEMIDE Inactive AZITHROMYCIN 250 MG TABS 2 po qd x 1 day, then 1 po qd x 4 days AZITHROMYCIN 250 MG TABS 6785655 AZITHROMYCIN Inactive CEFTIN 500 MG TAB 1 twice a day CEFTIN 500 MG TAB 048399 CEFUROXIME AXETIL Inactive CEFDINIR 300 MG CAPS 1 po BID x 10 days CEFDINIR 300 MG CAPS 20020708 CEFDINIR Inactive Immunizations Vaccine Administration Date Value Standard Description Seasonal influenza vaccine, injectable, containing preservative, for > 3 years old (Afluria, FluLaval, Fluzone, Fluvirin, Fluarix, Agriflu(>=18 yo)) Fluzone (>3 yrs.) [[id number]] Influenza, seasonal, injectable influenza immunization (Flu Vax) has been administered Influenza - Unspecified Formulation [CVX88] influenza virus vaccine, unspecified formulation Seasonal influenza vaccine, injectable, containing preservative, for > 3 years old (Afluria, FluLaval, Fluzone, Fluvirin, Fluarix, Agriflu(>=18 yo)) Fluzone (>3 yrs.) [ZLK717] Influenza, seasonal, injectable pneumococcal immunization administered Pneumovax 23 [CVX33] pneumococcal polysaccharide vaccine, 23 valent dT (Diphtheria and Tetanus) booster given given Td(adult) unspecified formulation Boostrix (Tetanus toxoid, reduced diphtheria toxoid and acellular pertussis vaccine, adsorbed), booster Boostrix [MMU257] tetanus toxoid, reduced diphtheria toxoid, and acellular [...] Panel - Chemistry sodium, serum 145 mmol/L 574-436 5672/06/22 potassium, serum 3.9 mmol/L 3.5-5.2 chloride, serum 109 mmol/L 98-107 carbon dioxide, venous blood 23.4 mmol/L 21.0-32.0 blood glucose 92 mg/dL 65-110 calcium, serum 8.2 mg/dL 8.5-10.1 urea nitrogen, blood 24 mg/dL 7-18 creatinine, serum 1.30 mg/dL 0.60-1.30 Lab Report: [facility] Advanced Lipid and Inlammation Panel /39481 - Chemistry cholesterol, serum 148 mg/dL 548-877 9554/09/02 HDL cholesterol, serum 55 mg/dL > OR=46 [...] (L) - Chemistry sodium, serum 145 mmol/L 888-356 9868/09/02 potassium, serum 4.6 mmol/L 3.5-5.2 chloride, serum [...] Rate - Chemistry sodium, serum 139 mmol/L [phone]/03/24 carbon dioxide, venous blood 22.4 mmol/L 21.0-32.0 [...] ... - Chemistry sodium, serum 143 mmol/L 968-497 3611/05/02 carbon dioxide, venous blood 25.6 mmol/L 21.0-32.0 [...] mg/dL Encounters Code Encounter Date Provider Facility CPT-61209 Level 4 Est. Patient 10:18:54 CDT Gab Padron MD [facility] CPT-85098 Level 3 Est. Patient 11:30:07 CDT Rodrigo Sarah APRN [facility] CPT-63933 Level 4 Est. Patient 21:02:30 [employer] Gab Padron MD [facility] CPT-41368 Level 3 Est. Patient 11:02:19 [employer] Gab Padron MD [facility] CPT-70003 Level 4 Est. Patient 22:24:31 [employer] Gab Padron MD [facility]-13419 Level 3 Est. Patient 18:33:46 [employer] Gab Padron MD [facility]-60822 Level 3 Est. Patient 16:19:11 CDT Yolande Lindsay MD [facility]-29728 Level 3 Est. Patient 18:59:14 CDT Yolande Lindsay MD [facility]-16048 Level 4 Est. Patient 21:29:26 CDT Yolande Lindsay MD [facility]-20266 Level 3 Est. Patient 07:37:45 CDT Yolande Lindsay MD [facility]-95664 Level 3 Est. Patient 17:03:46 CDT Yolande Lindsay MD [facility]-84088 Level 4 Est. Patient 20:02:13 [employer] Yoladne Lindsay MD [facility]-28066 Level 3 Est. Patient 16:02:07 [employer] Alexis Ordaz MD [facility]-16064 Level 3 Est. Patient 12:41:24 [employer] Yolande Lindsay MD [facility]-52230 Level 3 Est. Patient 15:41:20 [employer] Yolande Lindsay MD [facility]-32808 Level 3 Est. Patient 13:20:02 [employer] Yolande Lindsay MD [facility]-44054 Level 3 Est. Patient 15:00:38 CDT Jared Og MD [facility]-36519 Level 3 Est. Patient 10:22:32 CDT Yolande Lindsay MD [facility]-02167 Level 3 Est. Patient 17:12:58 CDT Yolande Lindsay MD [facility]-87527 Level 4 Est. Patient 13:30:58 CDT Yolande Lindsay MD PhD [facility] CPT-77271 Level 4 New Patient 09:02:42 CDT Jared Og MD [facility]-72697 Level 3 Est. Patient 08:19:07 CDT Yolande Lindsay MD [facility]-18224 Level 3 Est. Patient 12:00:13 [employer] Gab Padron MD [facility]-04047 Level 3 Est. Patient 16:15:23 [employer] Yolande Lindsay MD [facility]-54951 Level 2 Est. Patient 19:47:15 CDT Yolande Lindsay MD [facility]-32764 Level 3 Est. Patient 21:38:31 CDT Yolande Lindsay MD [facility]-25995 Level 3 Est. Patient 10:25:12 CDT Adiel PERAZA [facility] CPT-56675 Level 4 Est. Patient 10:51:58 CDT Yolande Lindsay MD [facility]-67625 Level 3 Est. Patient 14:04:55 [employer] Rodrigo Sarah APRN [facility]-76011 Level 3 Est. Patient 10:46:35 [employer] Rodrigo Sarah [facility]ly [facility]-53541 Level 3 Est. Patient 14:24:37 [employer] Yolande Lindsay MD [facility]-34454 Level 3 Est. Patient 17:41:58 [employer] Yolande Lindsay MD [facility]-69507 Level 2 Est. Patient 22:01:41 [employer] [facility] Level 2 Est. Patient 22:01:11 [employer] Jillina Frazell [facility][note 3] CPT-92832 Level 3 Est. Patient 10:12:29 [employer] Rodrigo Sarah [facility][note 3] CPT-75088 Level 3 Est. Patient 11:05:44 CDT Alexis Ordaz MD [facility] CPT-43326 Level 3 Est. Patient 14:57:20 CDT Yolande Lindsay MD [facility] CPT-67075 Level 3 Est. Patient 14:40:57 CDT Yolande Lindsay MD [facility]-59838 Level 3 Est. Patient 20:55:40 CDT Yolande Lindsay MD [facility]-56780 Level 3 Est. Patient 12:42:38 [employer] Yolande Lindsay MD [facility]-14903 Level 3 Est. Patient 11:54:49 [employer] Des Hines MD [facility] CPT-85321 Level 3 Est. Patient 17:06:38 CDT Dewayne PERAZA [facility] Procedures Code Procedure Name Date Entry Date Standard Description CPT-97713 LS spine comp w obliq 13:28:00 [employer] CPT-J1040 Depo Medrol 80 mg (Methyl Prednisolone Acetate) 10:51: 28 [employer] CPT-J1100 Decadron 8mg (Dexamethasone) 10:51:28 [employer] CPT-31858 Abx/Therapy Injection 10:51:28 [employer] CPT-J1100 Decadron 8mg (Dexamethasone) 21:02:30 [employer] CPT-J1040 Depo Medrol 80 mg (Methyl Prednisolone Acetate) 21:02: 30 [employer] [id number] Event Monitor - MC Transmission 09:12:32 CDT 08/06 [id number] Event Monitor - MC review and interp 09:12:32 CDT [id number] Event Monitor - MC recording 09:12:32 CDT CPT-63506 EKG Trac and Interp 16:50:22 CDT CPT-J1030 Depo Medrol 40 mg (Methyl Prednisolone Acetate) 17:05: 54 CDT CPT-J1100 Decadron 4mg (Dexamethasone) 17:05:54 CDT CPT-89898 Abx/Therapy Injection 17:05:54 CDT CPT-J1100 Decadron 4mg (Dexamethasone) 16:55:28 CDT CPT-J1030 Depo Medrol 40 mg (Methyl Prednisolone Acetate) 16:55: 28 CDT CPT-01622 Ankle Complete - Min 3V 15:58:50 CDT CPT-93695 Knee 3V 15:58:50 CDT CPT-40420 Hip comp min 2V 15:58:50 CDT CPT-J2270 Morphine Sulfate 10 mg 14:25:44 [employer] CPT-J2550 Phenergan 12.5 mg (Promethazine) 14:25:44 [employer] CPT-61814 Abx/Therapy Injection 14:25:44 [employer] CPT-J2550 Phenergan 12.5 mg (Promethazine) 14:08:03 [employer] CPT-J2270 Morphine Sulfate 10 mg 14:08:03 [employer] CPT-98218 Bladder Scan 15:00:38 CDT CPT-TCMM Transitional Care Mgmt-Moderate 09:52:22 CDT CPT-J1030 Depo Medrol 40 mg (Methyl Prednisolone Acetate) 10:55: 18 CDT CPT-J1100 Decadron 4mg (Dexamethasone) 10:55:18 CDT CPT-13472 Abx/Therapy Injection 10:55:18 CDT CPT-J1030 Depo Medrol 40 mg (Methyl Prednisolone Acetate) 10:22: 32 CDT CPT-J1100 Decadron 4mg (Dexamethasone) 10:22:32 CDT CPT-95161 Postop F/U Visit 14:37:13 CDT CPT-56626 Ankle Complete - Min 3V 17:11:58 CDT CPT-74271 Foot comp min 3V 17:11:58 CDT CPT-72545 Bladder Scan 09:56:58 CDT CPT-83710 Postop F/U Visit 09:56:58 CDT CPT-14554 Cystoscopy 09:02:42 CDT CPT-29316 Bladder Scan 09:02:42 CDT CPT-62142 Abd single AP View 16:00:35 CDT CPT-09320 Administration single or combination vaccine inc oral 10 :15:43 CDT CPT-84560 Influenza split virus > age 3 10:15:43 CDT CPT-94762 Nail Avulsion 09:24:57 CDT CPT-OV Office Visit 11:15:41 CDT CPT-87478 Abx/Therapy Injection 10:51:30 CDT CPT-J3301 Kenalog 40 mg (Triamcinolone Acetonide) 10:25:12 CDT CPT-J1100 Decadron 4mg (Dexamethasone) 10:25:12 CDT CPT-76935 Anoscopy diagnostic 10:36:12 CDT CPT-OV Office Visit 15:34:31 CDT CPT-63174 Abx/Therapy Injection 08:21:15 [employer] CPT-J1885 Toradol 60 mg (Ketorolac) 10:46:35 [employer] CPT-OV Office Visit 19:51:16 [employer] CPT-75279 Spec Collection and Handling Fee 14:34:18 [employer] CPT-PV Prev. Care Visit 14:19:18 [employer] CPT-48085 Postop F/U Visit 14:47:51 [employer] CPT-69610 Postop F/U Visit 15:15:14 [employer] CPT-04608 Postop F/U Visit 14:41:43 CDT CPT-66020 Postop F/U Visit 15:47:46 CDT CPT-OV Office Visit 15:27:23 CDT CPT-OV Office Visit 17:20:34 CDT CPT-40231 Abx/Therapy Injection 15:05:57 CDT CPT-J1100 Decadron 8mg (Dexamethasone) 14:44:57 CDT CPT-J1040 Depo Medrol 80 mg (Methyl Prednisolone Acetate) 14:44: 57 CDT CPT-JTINJ Joint Injection 10:17:37 CDT CPT-43173 Administration 2+ single or combination vaccines inc oral 13:01:46 [employer] CPT-31226 Administration single or combination vaccine inc oral 13 :01:46 [employer] CPT-71370 Pneumovax 13:01:46 [employer] CPT-84414 Influenza split virus > age 3 13:01:46 [employer] CPT-12182 Administration single or combination vaccine inc oral 08 :56:49 CDT CPT-42704 Tdap 08:56:49 CDT
--- OUTSIDE RECORDS SUMMARY | 2017-03-21 20:53 | XMS REPORT | Clinical Summary ---
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 Critical Active Dewayne [...] infarction, hx of 412 Active [facility] Old myocardial infarction FOOT PAIN, RIGHT ICD-729.5 Inactive Yolande Lindsay [...] Generic Name NDC Status Provider Patient Instruction CALCIUM 600+D PLUS MINERALS 600-400 MG-UNIT ORAL CHEW 1 tab by mouth daily CALCIUM CARBONATE-VIT D-MIN 57275815801 Active Yolande Lindsay MD PhD Active ONDANSETRON 4 MG TBDP 1 q4h PRN nausea ONDANSETRON 55395771111 Active Yolande Lindsay MD PhD Active ADULT ASPIRIN EC LOW STRENGTH 81 MG TBEC Take 1 tablet by mouth daily 2014 ASPIRIN 59959059833 No Longer Active Yolande Lindsay MD PhD Active ZOFRAN ODT 4 MG TBDP 1 pill dissolved by mouth every 4 hours if needed for nausea ONDANSETRON 14708671445 No Longer Active Yolande Lindsay MD PhD Active CEFTIN 500 MG TAB 1 twice a day CEFUROXIME AXETIL 33634453066 No Longer Active Yolande Lindsay MD PhD Active ALBUTEROL SULFATE 0.083 % NEBU SOLN one vial per nebulizer every 4-6 hours as needed ALBUTEROL SULFATE 95410799802 No Longer Active Alexis Ordaz MD Active DOXYCYCLINE HYCLATE 100 MG CAP 1 cap by mouth twice daily DOXYCYCLINE HYCLATE 10838958735 No Longer Active Yolande Lindsay MD PhD Active CYCLOBENZAPRINE HCL 10 MG TABS 1/2 - 1 tab by mouth three times daily if needed for spasms/pain CYCLOBENZAPRINE HCL 80197742591 No Longer Active Yolande Lindsay MD PhD Active TRILEPTAL 600 MG TABS Take one 1/2 tablet in Am and 1 tablet at night OXCARBAZEPINE 86216486425 Active Yolande Lindsay MD PhD Active AZITHROMYCIN 250 MG TABS 2 pills on day 1, then 1 pill daily x 4 days AZITHROMYCIN 68943841044 No Longer Active Yolande Lindsay MD PhD Active XOPENEX 1.25 MG/3ML NEBU 1 neb every 4 hours if needed for cough/congestion LEVALBUTEROL HCL 94636682016 No Longer Active Yolande Lindsay MD PhD Active DOXYCYCLINE HYCLATE 100 MG TAB 1 tab twice a day for 14 days 2013 DOXYCYCLINE HYCLATE 52838219374 No Longer Active Yolande Lindsay MD PhD Active LEVOTHYROXINE SODIUM 75 MCG TABS Take 1 tab daily LEVOTHYROXINE SODIUM 22005336622 Active Yolande Lindsay MD PhD Active PREVACID 30 MG CPDR Take 1 tablet by mouth daily-PRN LANSOPRAZOLE 23073952271 No Longer Active Yolande Lindsay MD PhD Active PA VITAMIN D-3 2000 UNIT CAPS 1 CAP PO DAILY CHOLECALCIFEROL 33555574033 No Longer Active Yolande Lindsay MD PhD Active CEFDINIR 300 MG CAPS by mouth twice a day CEFDINIR 41161842811 No Longer Active Gab Padron MD Active TOPAMAX 50 MG TABS 1 PO twice daily TOPIRAMATE 02990024734 Active Yolande Lindsay MD PhD Active AZITHROMYCIN 250 MG TABS 2 po qd x 1 day, then 1 po qd x 4 days AZITHROMYCIN 37542532526 No Longer Active Yolande Lindsay MD PhD Active DICLOFENAC SODIUM 75 MG TBEC 1 tablet by q 12 hours PRN headaches DICLOFENAC SODIUM 52689407724 No Longer Active Yolande Lindsay MD PhD Active FLONASE 50 MCG/ACT SUSP 1 spray each nostril am and hs FLUTICASONE PROPIONATE 20026072565 No Longer Active Todd Callaway MD Active ANUSOL-HC 25 MG SUPPOSITORY 1 rectally twice a day as needed for hemorrhoids HYDROCORTISONE JAYDEN (RECTAL) 44547772837 No Longer Active Yolande Lindsay MD PhD Active ANUSOL-HC 25 MG SUPPOSITORY 1 suppository rectally each evening as needed for anal fissure HYDROCORTISONE JAYDEN (RECTAL) 07029031754 No Longer Active LONNIE Iglesias Active VALIUM 5 MG TAB 1 po 30 minutes prior to your MRI DIAZEPAM 69496529275 No Longer Active LONNIE Iglesias Active METHOCARBAMOL 750 MG TABS 1 PO QID PRN METHOCARBAMOL 14061493447 No Longer Active Daphne Wetzel APRN Active NITROSTAT 0.4 MG SUBL as directed NITROGLYCERIN 97098323265 No Longer Active Rodrigo Sarah APRN Active ROBAXIN-750 750 MG TABS 2 four times a day for 3 days as needed for muscle spasm, then 1 four times a day as needed METHOCARBAMOL 29103108705 No Longer Active Rodrigo Sarah APRN Active HYDROCODONE-ACETAMINOPHEN 5-325 MG TABS 1 q 4-6 hrs prn HYDROCODONE-ACETAMINOPHEN 07399120717 No Longer Active Rodrigo Sarah APRN Active VERAPAMIL HCL CR 180 MG CR-TABS TAKE 1 TAB DAILY VERAPAMIL HCL 15218940675 No Longer Active Yolande Lindsay MD PhD Active BACTRIM DS 800-160 MG TAB 1 tab by mouth twice daily TRIMETHOPRIM-SULFAMETHOXAZOLE 25739873604 No Longer Active Yolande Lindsay MD PhD Active NEXIUM 40 MG PACK 1 by mouth daily ESOMEPRAZOLE MAGNESIUM 63030671927 No Longer Active Des Hines MD Active EPIPEN 2-CHARLETTE 0.3 MG/0.3ML OMARI as need for allergic reaction EPINEPHRINE 68387282921 Active Yolande Lindsay MD PhD Active LISINOPRIL 10 MG TABS 1 PO Q D FOR BP LISINOPRIL 27112169044 Active Yolande Lindsay MD PhD Active NEXIUM 40 MG CPDR 1 PO Q D DAY ESOMEPRAZOLE MAGNESIUM 20466881717 No Longer Active Sadia Perry RN Active NEXIUM 40 MG PACK 1 by mouth daily NEXIUM 40 MG PACK ESOMEPRAZOLE MAGNESIUM Inactive VERAPAMIL HCL CR 180 MG CR-TABS TAKE 1 TAB DAILY VERAPAMIL HCL CR 180 MG CR-TABS VERAPAMIL HCL Inactive HYDROCODONE-ACETAMINOPHEN 5-325 MG TABS 1 q 4-6 hrs prn HYDROCODONE-ACETAMINOPHEN 5-325 MG TABS 986088 HYDROCODONE-ACETAMINOPHEN Inactive ROBAXIN-750 750 MG TABS 2 four times a day for 3 days as needed for muscle spasm, then 1 four times a day as needed ROBAXIN-750 750 MG TABS 113393 METHOCARBAMOL Inactive NITROSTAT 0.4 MG SUBL as directed NITROSTAT 0.4 MG SUBL NITROGLYCERIN Inactive METHOCARBAMOL 750 MG TABS 1 PO QID PRN METHOCARBAMOL 750 MG TABS 371723 METHOCARBAMOL Inactive VALIUM 5 MG TAB 1 po 30 minutes prior to your MRI VALIUM 5 MG TAB 436765 DIAZEPAM Inactive ANUSOL-HC 25 MG SUPPOSITORY 1 suppository rectally each evening as needed for anal fissure ANUSOL-HC 25 MG SUPPOSITORY 9680752 HYDROCORTISONE JAYDEN (RECTAL) Inactive ANUSOL-HC 25 MG SUPPOSITORY 1 rectally twice a day as needed for hemorrhoids ANUSOL-HC 25 MG SUPPOSITORY 0400863 HYDROCORTISONE JAYDEN (RECTAL) Inactive FLONASE 50 MCG/ACT SUSP 1 spray each nostril am and hs FLONASE 50 MCG/ACT SUSP 495253 FLUTICASONE PROPIONATE Inactive DICLOFENAC SODIUM 75 MG TBEC 1 tablet by q 12 hours PRN headaches DICLOFENAC SODIUM 75 MG TBEC 551767 DICLOFENAC SODIUM Inactive PA VITAMIN D-3 2000 UNIT CAPS 1 CAP PO DAILY PA VITAMIN D-3 2000 UNIT CAPS CHOLECALCIFEROL Inactive PREVACID 30 MG CPDR Take 1 tablet by mouth daily-PRN PREVACID 30 MG CPDR 795468 LANSOPRAZOLE Inactive DOXYCYCLINE HYCLATE 100 MG TAB 1 tab twice a day for 14 days 2013 DOXYCYCLINE HYCLATE 100 MG TAB 282088 DOXYCYCLINE HYCLATE Inactive XOPENEX 1.25 MG/3ML NEBU 1 neb every 4 hours if needed for cough/congestion XOPENEX 1.25 MG/3ML NEBU LEVALBUTEROL HCL Inactive CYCLOBENZAPRINE HCL 10 MG TABS 1/2 - 1 tab by mouth three times daily if needed for spasms/pain CYCLOBENZAPRINE HCL 10 MG TABS 584237 CYCLOBENZAPRINE HCL Inactive ALBUTEROL SULFATE 0.083 % NEBU SOLN one vial per nebulizer every 4-6 hours as needed ALBUTEROL SULFATE 0.083 % NEBU SOLN 409996 ALBUTEROL SULFATE Inactive CEFTIN 500 MG TAB 1 twice a day CEFTIN 500 MG TAB 237268 CEFUROXIME AXETIL Inactive ZOFRAN ODT 4 MG TBDP 1 pill dissolved by mouth every 4 hours if needed for nausea ZOFRAN ODT 4 MG TBDP 960607 ONDANSETRON Inactive ADULT ASPIRIN EC LOW STRENGTH 81 MG TBEC Take 1 tablet by mouth daily 2014 ADULT ASPIRIN EC LOW STRENGTH 81 MG TBEC 293450 ASPIRIN Inactive BACTRIM DS 800-160 MG TAB 1 tab by mouth twice daily BACTRIM DS 800-160 MG TAB TRIMETHOPRIM-SULFAMETHOXAZOLE Inactive AZITHROMYCIN 250 MG TABS 2 po qd x 1 day, then 1 po qd x 4 days AZITHROMYCIN 250 MG TABS 7083364 AZITHROMYCIN Inactive CEFDINIR 300 MG CAPS by mouth twice a day CEFDINIR 300 MG CAPS 635653 CEFDINIR Inactive AZITHROMYCIN 250 MG TABS 2 pills on day 1, then 1 pill daily x 4 days AZITHROMYCIN 250 MG TABS 9484250 AZITHROMYCIN Inactive DOXYCYCLINE HYCLATE 100 MG CAP 1 cap by mouth twice daily DOXYCYCLINE HYCLATE 100 MG CAP 19890510 DOXYCYCLINE HYCLATE Inactive Immunizations Vaccine Administration Date Value Standard Description Seasonal influenza vaccine, injectable, containing preservative, for > 3 years old (Afluria, FluLaval, Fluzone, Fluvirin, Fluarix, Agriflu(>=18 yo)) Fluzone (>3 yrs.) [HTQ484] Influenza, seasonal, injectable influenza immunization (Flu Vax) has been administered Influenza - Unspecified Formulation [CVX88] influenza virus vaccine, unspecified formulation pneumococcal immunization administered Pneumovax 23 [CVX33] pneumococcal polysaccharide vaccine, 23 valent Seasonal influenza vaccine, injectable, containing preservative, for > 3 years old (Afluria, FluLaval, Fluzone, Fluvirin, Fluarix, Agriflu(>=18 yo)) Fluzone (>3 yrs.) [WOH172] Influenza, seasonal, injectable dT (Diphtheria and Tetanus) booster given given Td(adult) unspecified formulation Boostrix (Tetanus toxoid, reduced diphtheria toxoid and acellular pertussis vaccine, adsorbed), booster Boostrix [AMN567] tetanus toxoid, reduced diphtheria toxoid, and acellular [...] E&M - 3141-9 229 [lb_av] Weight Measured blood pressure, diastolic - 8462-4 75 mm[Hg] BP weldon blood pressure, systolic - 8480-6 130 mm[Hg] BP sys pulse rate E&M - 8867-4 59 /min Heart rate temperature E&M 100.0 [degF] Body temperature weight E&M - 3141-9 223 [lb_av] Weight Measured blood pressure, diastolic - 8462-4 68 mm[Hg] BP weldon blood pressure, systolic - 8480-6 109 mm[Hg] BP sys pulse rate E&M - 8867-4 72 /min Heart rate temperature E&M 97.7 [degF] Body temperature weight E&M - 3141-9 222 [lb_av] Weight Measured blood pressure, diastolic - 8462-4 65 mm[Hg] BP weldon blood pressure, systolic - 8480-6 108 mm[Hg] BP sys height E&M - 8302-2 52.5 [in_us] Bdy height pulse rate E&M - 8867-4 65 /min Heart rate temperature E&M 98.6 [degF] Body temperature weight E&M - 3141-9 222 [lb_av] Weight Measured Diagnostic Results Date Name Value Unit Range Description Chart Maintenance: Outside labs entered on flowsheet - Chemistry sodium, serum 143 mmol/L potassium, serum 4.2 mmol/L blood glucose 85 mg/dL creatinine, serum 1.38 mg/dL Chart Maintenance: Outside labs entered on [employer] - Hematology leukocyte count, blood 6.1 10*3/mm3 hemoglobin, blood 11.0 g/dL platelet count 175 10*3/mm3 Lab Report: CBC W/DIFF, Basic Metabolic Panel - Chemistry sodium, serum 144 mmol/L 465-339 3682/01/21 potassium, serum 4.2 mmol/L 3.5-5.2 chloride, serum [...] Panel - Chemistry sodium, serum 144 mmol/L 236-248 9781/12/15 potassium, serum 5.4 mmol/L 3.5-5.2 chloride, serum [...] UA - Chemistry sodium, serum 143 mmol/L 951-451 5428/10/24 potassium, serum 3.9 mmol/L 3.5-5.2 chloride, serum [...] 51 mg/dL 30-200 cholesterol, serum 173 mg/dL 314-549 6555/04/28 HDL cholesterol, serum 63 mg/dL 32-96 LDL [...] 0-19 Encounters Code Encounter Date Provider Facility CPT-26010 Level 3 Est. Patient 07:37:45 CDT Yolande Lindsay MD PhD [facility] CPT-69544 Level 3 Est. Patient 17:03:46 CDT Yolande Lindsay MD PhD [facility] CPT-21000 Level 4 Est. Patient 20:02:13 CORPORATE AUDITOR Yolande Lindsay MD PhD [facility] CPT-12726 Level 3 Est. Patient 16:02:07 CORPORATE AUDITOR Alexis Ordaz MD [facility] CPT-61057 Level 3 Est. Patient 12:41:24 CORPORATE AUDITOR Yolande Lindsay MD [facility]-46883 Level 3 Est. Patient 15:41:20 CORPORATE AUDITOR Yolande Lindsay MD [facility]-77106 Level 3 Est. Patient 13:20:02 CORPORATE AUDITOR Yolande Lindsay MD [facility]-21690 Level 3 Est. Patient 15:00:38 CDT Jared Og MD [facility]-14614 Level 3 Est. Patient 10:22:32 CDT Yolande Lindsay MD [facility]-40320 Level 3 Est. Patient 17:12:58 CDT Yolande Lindsay MD [facility]-15977 Level 4 Est. Patient 13:30:58 CDT Yolande Lindsay MD [facility] CPT-59302 Level 4 New Patient 09:02:42 CDT Jared Og MD [facility]-54985 Level 3 Est. Patient 08:19:07 CDT Yolande Lindsay MD [facility]-28854 Level 3 Est. Patient 12:00:13 CORPORATE AUDITOR Gab Padron [facility]-85274 Level 3 Est. Patient 16:15:23 CORPORATE AUDITOR Yolande Lindsay MD [facility]-22959 Level 2 Est. Patient 19:47:15 CDT Yolande Lindsay MD [facility]-72166 Level 3 Est. Patient 21:38:31 CDT Yolande Lindsay MD [facility]-17919 Level 3 Est. Patient 10:25:12 CDT Adiel PERAZA [id number] Level 4 Est. Patient 10:51:58 CDT Yolande Lindsay MD [facility] CPT-72145 Level 3 Est. Patient 14:04:55 CORPORATE AUDITOR Rodrigo Sarah [facility]-37778 Level 3 Est. Patient 10:46:35 CORPORATE AUDITOR Rodrigo Sarah [facility] CPT-92051 Level 3 Est. Patient 14:24:37 CORPORATE AUDITOR Yolande Lindsay MD [facility]-67394 Level 3 Est. Patient 17:41:58 CORPORATE AUDITOR Yolande Lindsay MD [facility]-55554 Level 2 Est. Patient 22:01:41 CORPORATE AUDITOR Rodrigo Sarah [facility]-89215 Level 2 Est. Patient 22:01:11 CORPORATE AUDITOR Rodrigo Sarah [facility]-21736 Level 3 Est. Patient 10:12:29 CORPORATE AUDITOR Rodrigo Sarah [facility] CPT-62743 Level 3 Est. Patient 11:05:44 CDT Alexis Ordaz MD [phone] Level 3 Est. Patient 14:57:20 CDT Yolande Lindsay MD [facility]-03624 Level 3 Est. Patient 14:40:57 CDT Yolande Lindsay MD [facility]-52631 Level 3 Est. Patient 20:55:40 CDT Yolande Lindsay MD [facility]-11408 Level 3 Est. Patient 12:42:38 CORPORATE AUDITOR Yolande Lindsay MD [facility]-44048 Level 3 Est. Patient 11:54:49 CORPORATE AUDITOR Des Hines MD [id number] Level 3 Est. Patient 17:06:38 CDT Dewayne PERAZA [facility] Procedures Code Procedure Name Date Entry Date Standard Description [id number] Event Monitor - MC Transmission 09:12:32 CDT 08/06 [id number] Event Monitor - MC review and interp 09:12:32 CDT [id number] Event Monitor - MC recording 09:12:32 CDT CPT-08661 EKG Trac and Interp 16:50:22 CDT CPT-J1030 Depo Medrol 40 mg (Methyl Prednisolone Acetate) 17:05: 54 CDT CPT-J1100 Decadron 4mg (Dexamethasone) 17:05:54 CDT CPT-42172 Abx/Therapy Injection 17:05:54 CDT CPT-J1100 Decadron 4mg (Dexamethasone) 16:55:28 CDT CPT-J1030 Depo Medrol 40 mg (Methyl Prednisolone Acetate) 16:55: 28 CDT CPT-17401 Ankle Complete - Min 3V 15:58:50 CDT CPT-60417 Knee 3V 15:58:50 CDT CPT-70384 Hip comp min 2V 15:58:50 CDT CPT-J2270 Morphine Sulfate 10 mg 14:25:44 CORPORATE AUDITOR CPT-J2550 Phenergan 12.5 mg (Promethazine) 14:25:44 CORPORATE AUDITOR CPT-76331 Abx/Therapy Injection 14:25:44 CORPORATE AUDITOR CPT-J2550 Phenergan 12.5 mg (Promethazine) 14:08:03 CORPORATE AUDITOR CPT-J2270 Morphine Sulfate 10 mg 14:08:03 CORPORATE AUDITOR CPT-64063 Bladder Scan 15:00:38 CDT CPT-TCMM Transitional Care Mgmt-Moderate 09:52:22 CDT CPT-J1030 Depo Medrol 40 mg (Methyl Prednisolone Acetate) 10:55: 18 CDT CPT-J1100 Decadron 4mg (Dexamethasone) 10:55:18 CDT CPT-05706 Abx/Therapy Injection 10:55:18 CDT CPT-J1030 Depo Medrol 40 mg (Methyl Prednisolone Acetate) 10:22: 32 CDT CPT-J1100 Decadron 4mg (Dexamethasone) 10:22:32 CDT CPT-81225 Postop F/U Visit 14:37:13 CDT CPT-65738 Ankle Complete - Min 3V 17:11:58 CDT CPT-82084 Foot comp min 3V 17:11:58 CDT CPT-30898 Bladder Scan 09:56:58 CDT CPT-39668 Postop F/U Visit 09:56:58 CDT CPT-66569 Cystoscopy 09:02:42 CDT CPT-24058 Bladder Scan 09:02:42 CDT CPT-45853 Abd single AP View 16:00:35 CDT CPT-03220 Administration single or combination vaccine inc oral 10 :15:43 CDT CPT-75051 Influenza split virus > age 3 10:15:43 CDT CPT-78949 Nail Avulsion 09:24:57 CDT CPT-OV Office Visit 11:15:41 CDT CPT-64673 Abx/Therapy Injection 10:51:30 CDT CPT-J3301 Kenalog 40 mg (Triamcinolone Acetonide) 10:25:12 CDT CPT-J1100 Decadron 4mg (Dexamethasone) 10:25:12 CDT CPT-42823 Anoscopy diagnostic 10:36:12 CDT CPT-OV Office Visit 15:34:31 CDT CPT-97813 Abx/Therapy Injection 08:21:15 CORPORATE AUDITOR CPT-J1885 Toradol 60 mg (Ketorolac) 10:46:35 CORPORATE AUDITOR CPT-OV Office Visit 19:51:16 CORPORATE AUDITOR CPT-63667 Spec Collection and Handling Fee 14:34:18 CORPORATE AUDITOR CPT-PV Prev. Care Visit 14:19:18 CORPORATE AUDITOR CPT-85481 Postop F/U Visit 14:47:51 CORPORATE AUDITOR CPT-10332 Postop F/U Visit 15:15:14 CORPORATE AUDITOR CPT-60277 Postop F/U Visit 14:41:43 CDT CPT-93674 Postop F/U Visit 15:47:46 CDT CPT-OV Office Visit 15:27:23 CDT CPT-OV Office Visit 17:20:34 CDT CPT-06348 Abx/Therapy Injection 15:05:57 CDT CPT-J1100 Decadron 8mg (Dexamethasone) 14:44:57 CDT CPT-J1040 Depo Medrol 80 mg (Methyl Prednisolone Acetate) 14:44: 57 CDT CPT-JTINJ Joint Injection 10:17:37 CDT CPT-99787 Administration 2+ single or combination vaccines inc oral 13:01:46 CORPORATE AUDITOR CPT-76533 Administration single or combination vaccine inc oral 13 :01:46 CORPORATE AUDITOR CPT-26481 Pneumovax 13:01:46 CORPORATE AUDITOR CPT-77234 Influenza split virus > age 3 13:01:46 CORPORATE AUDITOR CPT-15500 Administration single or combination vaccine inc oral 08 :56:49 CDT CPT-85988 Tdap 08:56:49 CDT
--- OUTSIDE RECORDS SUMMARY | 2017-03-21 20:55 | XMS REPORT | Clinical Summary ---
Author Author Admin, MARGRET Organization [employer] Address Unknown Phone Unavailable Allergies, Adverse Reactions, Alerts Allergy Name Reaction Description Start Date Severity Status Provider VALENTIN Critical Active Rodrigo Montemayorl PORTFOLIO MGR CHLORHEXIDINE GLUCONATE tongue and gums swollen Critical Active Hoa Clarita RMA NORFLEX Rash Critical Active Silvestrellina Frazell PORTFOLIO MGR TRAZODONE HCL sees things Critical Active Dewayne [...] of 412 Active Hoa Otto [facility] Old myocardial infarction Pelvic pain 789.09 Active Yolande Lindsay MD PhD Abdominal pain, other specified site; multiple sites Edema 782.3 Active Yolande Lindsay MD PhD Edema Rash 782.1 Active Yolande Lindsay MD PhD Rash and other nonspecific skin eruption Back pain, lumbar 724.2 Active Gab Padron MD Lumbago Cough 786.2 Active Jillina Tyrel PORTFOLIO MGR Cough 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 Jillina Frazellilian PORTFOLIO MGR 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 Anemia 285.9 Active Gab Padron MD Anemia, unspecified Conjunctivitis 372.30 Active Jillina Tyrel PORTFOLIO MGR Conjunctivitis, unspecified Sinusitis 473.9 Active Jillina Frazell PORTFOLIO MGR Unspecified sinusitis (chronic) Nonspecific syndrome suggestive of viral illness 079.99 Active Rodrigo Sarah APRN Unspecified viral infection Laryngitis 464.00 Active Jillina Tyrel PORTFOLIO MGR Acute laryngitis without mention of obstruction Abdominal [...] Lindsay MD PhD HEADACHE ICD-784.0 Inactive Yolande iLndsay MD PhD OTHER DISORDER OF COCCYX ICD-724.79 [...] 1/2 tab daily for 2 days PREDNISONE 94379871824 No Longer Active Gab Padron MD Active ZOFRAN ODT 4 MG TBDP 1 po q6hr PRN Nausea ONDANSETRON 59012233599 Active Gab Padron MD Active IBUPROFEN 600 MG TAB 1 tablet by mouth every 6 hours for 7 days, then 1 tablet every 6 hours as needed. Take with food IBUPROFEN 71103470493 Active Rodrigo Sarah APRN Active BACTRIM DS 800-160 MG TAB 1 tab by mouth twice daily TRIMETHOPRIM-SULFAMETHOXAZOLE 66054534306 No Longer Active Gab Padron MD Active ADVAIR DISKUS 250-50 MCG/DOSE AEPB 1 puff BID FLUTICASONE- SALMETEROL 51103953847 Active Rodrigo Sarah APRN Active LEVOTHYROXINE SODIUM 75 MCG TABS Take 1 tab daily LEVOTHYROXINE SODIUM 24472881878 No Longer Active Mariana Cuadra A Active SYNTHROID 88 MCG ORAL TABS Take one by mouth daily LEVOTHYROXINE SODIUM 96332918952 Active Gab Padron MD Active CHERATUSSIN AC 100-10 MG/5ML SYRP 1 tsp by mouth every 4 hours as needed for cough GUAIFENESIN-CODEINE 99533774065 No Longer Active Gab Padron MD Active POLYTRIM 36938-2.1 UNIT/ML-% SOLN 1 gtt to affected eye q3h x 7 days POLYMYXIN B-TRIMETHOPRIM 53667769424 No Longer Active Gab Padron MD Active FLUTICASONE PROPIONATE 50 MCG/ACT SUSP 1 to 2 sprays each nostril daily 04/21 FLUTICASONE PROPIONATE 30482579755 No Longer Active Gab Padron MD Active TRILEPTAL 600 MG TABS Take one 1 tablet in Am and 1 tablet at night OXCARBAZEPINE 84159731324 Active Gab Padron MD Active CEFDINIR 300 MG CAPS 1 po BID x 10 days CEFDINIR 93421249719 No Longer Active Rodrigo Sarah APRN Active CEFTIN 500 MG TAB 1 twice a day CEFUROXIME AXETIL 84918203400 No Longer Active Gab Padron MD Active AZITHROMYCIN 250 MG TABS 2 po qd x 1 day, then 1 po qd x 4 days AZITHROMYCIN 37018129713 No Longer Active Rodrigo Sarah APRN Active CLARITIN 10 MG TAB 1 tablet by mouth daily as needed for allergies LORATADINE 93428928502 Active Rodrigo Sarah APRN Active OXYCODONE HCL 5 MG ORAL CAPS 1 TAB PO Q HS OXYCODONE HCL 92863760721 No Longer Active Rodrigo Sarah APRN Active NIASPAN 500 MG ORAL CR-TABS 1 pill nightly x 1 week, then 2 pills nightly x 1 week, then 3 pills nightly x 1 week, then 4 pills nightly NIACIN (ANTIHYPERLIPIDEMIC) 32140645666 No Longer Active Rodrigo Sarah APRN Active NIACIN 500 MG TABS 1 pill by mouth nightly x 1 week, then 2 pills x 1 week, then 3 pills x 1 week, then 4 pills nightly - take after evening meal, with applesauce or an apple NIACIN 45561521810 No Longer Active Yolande Lindsay MD PhD Active FISH OIL 1000 MG CAPS 3 pills daily OMEGA-3 FATTY ACIDS 40185983567 Active Yolande Lindsay MD PhD Active TRIAMCINOLONE ACETONIDE 0.1 % CREA apply bid sparingly to rash TRIAMCINOLONE ACETONIDE 72227013349 Active Yolande Lindsay MD PhD Active FUROSEMIDE 20 MG TAB 1 tablet by mouth daily FUROSEMIDE 90437397239 Active Tisha Lambert APRN Active LISINOPRIL 20 MG ORAL TABS 1 tab by mouth daily LISINOPRIL 00658748879 Active Tisha Lambert APRN Active FUROSEMIDE 20 MG TABS 1 pill by mouth daily, for edema FUROSEMIDE 01945306508 No Longer Active Yolande Lindsay MD PhD Active ATORVASTATIN CALCIUM 10 MG TABS 1 pill by mouth daily, for cholesterol 09/06 ATORVASTATIN CALCIUM 89670330552 Active Tisha Lambert APRN Active CALCIUM 600+D PLUS MINERALS 600-400 MG-UNIT ORAL CHEW 1 tab by mouth daily CALCIUM CARBONATE-VIT D-MIN 61421391163 No Longer Active Yolande Lindsay MD PhD Active CYCLOBENZAPRINE HCL 10 MG TABS 1 tablet by mouth three times daily as needed for muscle spasm/pain CYCLOBENZAPRINE HCL 70135674823 Active Yolande Lindsay MD PhD Active ONDANSETRON 4 MG TBDP 1 q4h PRN nausea ONDANSETRON 28562359486 Active Yolande Lindsay MD PhD Active ADULT ASPIRIN EC LOW STRENGTH 81 MG TBEC Take 1 tablet by mouth daily 2014 ASPIRIN 57201315461 No Longer Active Yolande Lindsay MD PhD Active ZOFRAN ODT 4 MG TBDP 1 pill dissolved by mouth every 4 hours if needed for nausea ONDANSETRON 80731337808 No Longer Active Yolande Lindsay MD PhD Active CEFTIN 500 MG TAB 1 twice a day CEFUROXIME AXETIL 38785809839 No Longer Active Yolande Lindsay MD PhD Active ALBUTEROL SULFATE 0.083 % NEBU SOLN one vial per nebulizer every 4-6 hours as needed ALBUTEROL SULFATE 66311342577 No Longer Active Alexis Ordaz MD Active DOXYCYCLINE HYCLATE 100 MG CAP 1 cap by mouth twice daily DOXYCYCLINE HYCLATE 20176470615 No Longer Active Yolande Lindsay MD PhD Active CYCLOBENZAPRINE HCL 10 MG TABS 1/2 - 1 tab by mouth three times daily if needed for spasms/pain CYCLOBENZAPRINE HCL 67566223199 No Longer Active Yolande Lindsay MD PhD Active AZITHROMYCIN 250 MG TABS 2 pills on day 1, then 1 pill daily x 4 days AZITHROMYCIN 88149051893 No Longer Active Yolande Lindsay MD PhD Active XOPENEX 1.25 MG/3ML NEBU 1 neb every 4 hours if needed for cough/congestion LEVALBUTEROL HCL 51701630768 No Longer Active Yolande Lindsay MD PhD Active DOXYCYCLINE HYCLATE 100 MG TAB 1 tab twice a day for 14 days 2013 DOXYCYCLINE HYCLATE 79375676088 No Longer Active Yolande Lindsay MD PhD Active PREVACID 30 MG CPDR Take 1 tablet by mouth daily-PRN LANSOPRAZOLE 09194473660 No Longer Active Yolande Lindsay MD PhD Active PA VITAMIN D-3 2000 UNIT CAPS 1 CAP PO DAILY CHOLECALCIFEROL 68255866398 No Longer Active Yolande Lindsay MD PhD Active CEFDINIR 300 MG CAPS by mouth twice a day CEFDINIR 68302764832 No Longer Active Gab Padron MD Active TOPAMAX 50 MG TABS 1 PO twice daily TOPIRAMATE 52411031899 Active Yolande Lindsay MD PhD Active AZITHROMYCIN 250 MG TABS 2 po qd x 1 day, then 1 po qd x 4 days AZITHROMYCIN 18567237680 No Longer Active Yolande Lindsay MD PhD Active DICLOFENAC SODIUM 75 MG TBEC 1 tablet by q 12 hours PRN headaches DICLOFENAC SODIUM 52900687506 No Longer Active Yolande Lindsay MD PhD Active FLONASE 50 MCG/ACT SUSP 1 spray each nostril am and hs FLUTICASONE PROPIONATE 92805491279 No Longer Active Todd Callaway MD Active ANUSOL-HC 25 MG SUPPOSITORY 1 rectally twice a day as needed for hemorrhoids HYDROCORTISONE JAYDEN (RECTAL) 71156126782 No Longer Active Yolande Lindsay MD PhD Active ANUSOL-HC 25 MG SUPPOSITORY 1 suppository rectally each evening as needed for anal fissure HYDROCORTISONE JAYDEN (RECTAL) 39788693898 No Longer Active LONNIE Iglesias Active VALIUM 5 MG TAB 1 po 30 minutes prior to your MRI DIAZEPAM 55239270527 No Longer Active LONNIE Iglesias Active METHOCARBAMOL 750 MG TABS 1 PO QID PRN METHOCARBAMOL 29455747526 No Longer Active Daphne Rashard PORTFOLIO MGR Active NITROSTAT 0.4 MG SUBL as directed NITROGLYCERIN 82328620603 No Longer Active Rodrigo Sarah APRN Active ROBAXIN-750 750 MG TABS 2 four times a day for 3 days as needed for muscle spasm, then 1 four times a day as needed METHOCARBAMOL 98362090179 No Longer Active Rodrigo Sarah APRN Active HYDROCODONE-ACETAMINOPHEN 5-325 MG TABS 1 q 4-6 hrs prn HYDROCODONE-ACETAMINOPHEN 43004053380 No Longer Active Rodrigo Sarah APRN Active VERAPAMIL HCL CR 180 MG CR-TABS TAKE 1 TAB DAILY VERAPAMIL HCL 78039871472 No Longer Active Yolande Lindsay MD PhD Active BACTRIM DS 800-160 MG TAB 1 tab by mouth twice daily TRIMETHOPRIM-SULFAMETHOXAZOLE 26263433520 No Longer Active Yolande Lindsay MD PhD Active NEXIUM 40 MG PACK 1 by mouth daily ESOMEPRAZOLE MAGNESIUM 60693740102 No Longer Active Des Hines MD Active EPIPEN 2-CHARLETTE 0.3 MG/0.3ML OMARI as need for allergic reaction EPINEPHRINE 69659789923 Active Yolande Lindsay MD PhD Active NEXIUM 40 MG CPDR 1 PO Q D DAY ESOMEPRAZOLE MAGNESIUM 78100178779 No Longer Active Sadia Perry RN Active NEXIUM 40 MG PACK 1 by mouth daily NEXIUM 40 MG PACK ESOMEPRAZOLE MAGNESIUM Inactive VERAPAMIL HCL CR 180 MG CR-TABS TAKE 1 TAB DAILY VERAPAMIL HCL CR 180 MG CR-TABS VERAPAMIL HCL Inactive HYDROCODONE-ACETAMINOPHEN 5-325 MG TABS 1 q 4-6 hrs prn HYDROCODONE-ACETAMINOPHEN 5-325 MG TABS 165133 HYDROCODONE-ACETAMINOPHEN Inactive ROBAXIN-750 750 MG TABS 2 four times a day for 3 days as needed for muscle spasm, then 1 four times a day as needed ROBAXIN-750 750 MG TABS 073719 METHOCARBAMOL Inactive NITROSTAT 0.4 MG SUBL as directed NITROSTAT 0.4 MG SUBL 563427 NITROGLYCERIN Inactive METHOCARBAMOL 750 MG TABS 1 PO QID PRN METHOCARBAMOL 750 MG TABS 096455 METHOCARBAMOL Inactive VALIUM 5 MG TAB 1 po 30 minutes prior to your MRI VALIUM 5 MG TAB 579684 DIAZEPAM Inactive ANUSOL-HC 25 MG SUPPOSITORY 1 suppository rectally each evening as needed for anal fissure ANUSOL-HC 25 MG SUPPOSITORY 1072863 HYDROCORTISONE JAYDEN (RECTAL) Inactive ANUSOL-HC 25 MG SUPPOSITORY 1 rectally twice a day as needed for hemorrhoids ANUSOL-HC 25 MG SUPPOSITORY 0573966 HYDROCORTISONE JAYDEN (RECTAL) Inactive FLONASE 50 MCG/ACT SUSP 1 spray each nostril am and hs FLONASE 50 MCG/ACT SUSP FLUTICASONE PROPIONATE Inactive DICLOFENAC SODIUM 75 MG TBEC 1 tablet by q 12 hours PRN headaches DICLOFENAC SODIUM 75 MG TBEC 796642 DICLOFENAC SODIUM Inactive PA VITAMIN D-3 2000 UNIT CAPS 1 CAP PO DAILY PA VITAMIN D-3 2000 UNIT CAPS CHOLECALCIFEROL Inactive PREVACID 30 MG CPDR Take 1 tablet by mouth daily-PRN PREVACID 30 MG CPDR 272321 LANSOPRAZOLE Inactive DOXYCYCLINE HYCLATE 100 MG TAB 1 tab twice a day for 14 days 2013 DOXYCYCLINE HYCLATE 100 MG TAB 1919218 DOXYCYCLINE HYCLATE Inactive XOPENEX 1.25 MG/3ML NEBU 1 neb every 4 hours if needed for cough/congestion XOPENEX 1.25 MG/3ML NEBU 238858 LEVALBUTEROL HCL Inactive CYCLOBENZAPRINE HCL 10 MG TABS 1/2 - 1 tab by mouth three times daily if needed for spasms/pain CYCLOBENZAPRINE HCL 10 MG TABS 079569 CYCLOBENZAPRINE HCL Inactive ALBUTEROL SULFATE 0.083 % NEBU SOLN one vial per nebulizer every 4-6 hours as needed ALBUTEROL SULFATE 0.083 % NEBU SOLN 572678 ALBUTEROL SULFATE Inactive CEFTIN 500 MG TAB 1 twice a day CEFTIN 500 MG TAB 591299 CEFUROXIME AXETIL Inactive ZOFRAN ODT 4 MG TBDP 1 pill dissolved by mouth every 4 hours if needed for nausea ZOFRAN ODT 4 MG TBDP 414136 ONDANSETRON Inactive ADULT ASPIRIN EC LOW STRENGTH 81 MG TBEC Take 1 tablet by mouth daily 2014 ADULT ASPIRIN EC LOW STRENGTH 81 MG TBEC 426683 ASPIRIN Inactive CALCIUM 600+D PLUS MINERALS 600-400 [...] or an apple NIACIN 500 MG TABS 127767 NIACIN Inactive NIASPAN 500 MG ORAL CR-TABS 1 pill nightly x 1 week, then 2 pills nightly x 1 week, then 3 pills nightly x 1 week, then 4 pills nightly NIASPAN 500 MG ORAL CR-TABS NIACIN (ANTIHYPERLIPIDEMIC) Inactive OXYCODONE HCL 5 MG ORAL CAPS 1 TAB PO Q HS OXYCODONE HCL 5 MG ORAL CAPS 0138180 OXYCODONE HCL Inactive FLUTICASONE PROPIONATE 50 MCG/ACT SUSP 1 to 2 sprays each nostril daily 04/21 FLUTICASONE PROPIONATE 50 MCG/ACT SUSP 8017816 FLUTICASONE PROPIONATE Inactive POLYTRIM 53130-1.1 UNIT/ML-% SOLN 1 gtt to affected eye q3h x 7 days POLYTRIM 82762-6.1 UNIT/ML-% SOLN 840346 POLYMYXIN B- TRIMETHOPRIM Inactive CHERATUSSIN AC 100-10 MG/5ML SYRP 1 tsp by mouth every 4 hours as needed for cough CHERATUSSIN AC 100-10 MG/5ML SYRP 377209 GUAIFENESIN-CODEINE Inactive LEVOTHYROXINE SODIUM 75 MCG TABS Take 1 tab daily LEVOTHYROXINE SODIUM 75 MCG TABS 756697 LEVOTHYROXINE SODIUM Inactive BACTRIM DS 800-160 MG TAB 1 tab by mouth twice daily BACTRIM DS 800-160 MG TAB 19820606 TRIMETHOPRIM-SULFAMETHOXAZOLE Inactive AZITHROMYCIN 250 MG TABS 2 po qd x 1 day, then 1 po qd x 4 days AZITHROMYCIN 250 MG TABS 7128400 AZITHROMYCIN Inactive CEFDINIR 300 MG CAPS by mouth twice a day CEFDINIR 300 MG CAPS 20020708 CEFDINIR Inactive AZITHROMYCIN 250 MG TABS 2 pills on day 1, then 1 pill daily x 4 days AZITHROMYCIN 250 MG TABS 1319696 AZITHROMYCIN Inactive DOXYCYCLINE HYCLATE 100 MG CAP 1 cap by mouth twice daily DOXYCYCLINE HYCLATE 100 MG CAP 9090060 DOXYCYCLINE HYCLATE Inactive FUROSEMIDE 20 MG TABS 1 pill by mouth daily, for edema FUROSEMIDE 20 MG TABS 882317 FUROSEMIDE Inactive AZITHROMYCIN 250 MG TABS 2 po qd x 1 day, then 1 po qd x 4 days AZITHROMYCIN 250 MG TABS 9352414 AZITHROMYCIN Inactive CEFTIN 500 MG TAB 1 twice a day CEFTIN 500 MG TAB 681741 CEFUROXIME AXETIL Inactive CEFDINIR 300 MG CAPS [...] for 2 days PREDNISONE 20 MG TAB 159388 PREDNISONE Inactive Immunizations Vaccine Administration Date Value Standard Description Seasonal influenza vaccine, injectable, containing preservative, for > 3 years old (Afluria, FluLaval, Fluzone, Fluvirin, Fluarix, Agriflu(>=18 yo)) Fluzone (>3 yrs.) [ZHI515] Influenza, seasonal, injectable influenza immunization (Flu Vax) has been administered Influenza - Unspecified Formulation [CVX88] influenza virus vaccine, unspecified formulation Seasonal influenza vaccine, injectable, containing preservative, for > 3 years old (Afluria, FluLaval, Fluzone, Fluvirin, Fluarix, Agriflu(>=18 yo)) Fluzone (>3 yrs.) [BHA476] Influenza, seasonal, injectable pneumococcal immunization administered Pneumovax 23 [CVX33] pneumococcal polysaccharide vaccine, 23 valent dT (Diphtheria and Tetanus) booster given given Td(adult) unspecified formulation Boostrix (Tetanus toxoid, reduced diphtheria toxoid and acellular pertussis vaccine, adsorbed), booster Boostrix [EXT105] tetanus toxoid, reduced diphtheria toxoid, and acellular [...] Panel - Chemistry sodium, serum 142 mmol/L 736-971 8610/06/30 potassium, serum 4.4 mmol/L 3.5-5.2 chloride, serum [...] Rate - Chemistry sodium, serum 139 mmol/L 134-450 9905/03/24 carbon dioxide, venous blood 22.4 mmol/L 21.0-32.0 [...] ... - Chemistry sodium, serum 143 mmol/L 416-736 3810/05/02 carbon dioxide, venous blood 25.6 mmol/L 21.0-32.0 potassium, serum 4.8 mmol/L 3.5-5.2 chloride, serum 108 mmol/L 98-107 blood glucose 70 mg/dL 65-110 urea nitrogen, blood 20 mg/dL 7-18 creatinine, serum 1.21 mg/dL 0.55-1.30 alanine aminotransferase (SGPT), serum 32 U/L - aspartate aminotransferase (SGOT), serum 18 U/L 15-37 [...] PANEL - Chemistry cholesterol, serum 166 mg/dL 089-692 6982/12/06 triglyceride, serum, fasting 86 mg/dL 30-200 HDL cholesterol, serum 62 mg/dL 32-96 LDL cholesterol, serum 87 mg/dL 0-130 aspartate aminotransferase (SGOT), serum 18 U/L - alanine aminotransferase (SGPT), serum 29 U/L 78 bilirubin, serum, total 0.20 mg/dL 0.00-1.00 Lab [...] Negative mg/dL Negative sodium, serum 142 mmol/L 383-966 1503/07/18 carbon dioxide, venous blood 27.8 mmol/L 21.0-32.0 [...] negative Encounters Code Encounter Date Provider Facility CPT-48321 Level 3 Est. Patient 17:07:49 MANAGER OF PROCUREMENT Jared Og MD [facility] CPT-86147 Level 4 Est. Patient 19:55:18 MANAGER OF PROCUREMENT Jared Og MD [facility] CPT-45213 Level 3 Est. Patient 20:13:34 MANAGER OF PROCUREMENT Jared Og MD [facility] CPT-93208 Level 4 Est. Patient 16:31:27 CDT Gab Padron MD [facility] CPT-77727 Level 2 Est. Patient 12:23:38 CDT Jared Og MD [facility] CPT-74644 Level 3 Est. Patient 11:01:51 CDT Gab Padron MD [facility] CPT-20901 Level 3 Est. Patient 15:27:02 CDT Jared Og MD [facility] CPT-56431 Level 4 Est. Patient 09:25:27 CDT Gab Padron MD [facility] CPT-19474 Level 3 Est. Patient 10:29:41 CDT Rodrigo Sarah [facility] CPT-43611 Level 4 Est. Patient 17:51:05 CDT Gab Padron MD [facility]-69636 Level 3 Est. Patient 14:18:08 CDT Gab Padron MD [facility]-51955 Level 4 Est. Patient 10:18:54 CDT Gab Padron MD [facility]-62883 Level 3 Est. Patient 11:30:07 CDT Rodrigo Sarah [facility] CPT-79101 Level 4 Est. Patient 21:02:30 MANAGER OF PROCUREMENT Gab Padron MD [facility] CPT-21497 Level 3 Est. Patient 11:02:19 MANAGER OF PROCUREMENT Gab Padron MD [facility] CPT-75235 Level 4 Est. Patient 22:24:31 MANAGER OF PROCUREMENT Gab Padron MD [facility] CPT-97862 Level 3 Est. Patient 18:33:46 MANAGER OF PROCUREMENT Gab Padron MD [facility] CPT-53951 Level 3 Est. Patient 16:19:11 CDT Yolande Lindsay MD [facility]-87687 Level 3 Est. Patient 18:59:14 CDT Yolande Lindsay MD [facility] CPT-23081 Level 4 Est. Patient 21:29:26 CDT Yolande Lindsay MD [facility]-46885 Level 3 Est. Patient 07:37:45 CDT Yolande Lindsay MD [facility] CPT-52153 Level 3 Est. Patient 17:03:46 CDT Yolande Lindsay MD [facility]-33618 Level 4 Est. Patient 20:02:13 MANAGER OF PROCUREMENT Yolande Lindsay MD [facility] CPT-43245 Level 3 Est. Patient 16:02:07 MANAGER OF PROCUREMENT Alexis Ordaz MD [facility]-95821 Level 3 Est. Patient 12:41:24 MANAGER OF PROCUREMENT Yolande Lindsay MD [facility]-29425 Level 3 Est. Patient 15:41:20 MANAGER OF PROCUREMENT Yolande Lindsay MD [facility]-62271 Level 3 Est. Patient 13:20:02 MANAGER OF PROCUREMENT Yolande Lindsay MD [facility]-84994 Level 3 Est. Patient 15:00:38 CDT Jared Og MD [facility] CPT-36781 Level 3 Est. Patient 10:22:32 CDT Yolande Lindsay MD [facility] CPT-94301 Level 3 Est. Patient 17:12:58 CDT Yolande Lindsay MD [facility] CPT-02546 Level 4 Est. Patient 13:30:58 CDT Yolande Lindsay MD [facility] CPT-47566 Level 4 New Patient 09:02:42 CDT Jared Og MD [facility] CPT-47779 Level 3 Est. Patient 08:19:07 CDT Yolande Lindsay MD [facility]-14934 Level 3 Est. Patient 12:00:13 MANAGER OF PROCUREMENT Gab Padron MD [facility] CPT-09532 Level 3 Est. Patient 16:15:23 MANAGER OF PROCUREMENT Yolande Lindsay MD [facility]-00973 Level 2 Est. Patient 19:47:15 CDT Yolande Lindsay MD [facility]-53164 Level 3 Est. Patient 21:38:31 CDT Yolande Lindsay MD [facility]-75935 Level 3 Est. Patient 10:25:12 CDT Adiel PERAZA [facility]-56676 Level 4 Est. Patient 10:51:58 CDT Yolande Lindsay MD [facility]-32706 Level 3 Est. Patient 14:04:55 MANAGER OF PROCUREMENT Rodrigo Sarah [facility]-90121 Level 3 Est. Patient 10:46:35 MANAGER OF PROCUREMENT Rodrigo Sarah [facility] CPT-19459 Level 3 Est. Patient 14:24:37 MANAGER OF PROCUREMENT Yolande Lindsay MD [facility]-99390 Level 3 Est. Patient 17:41:58 MANAGER OF PROCUREMENT Yolande Lindsay MD [facility]-26980 Level 2 Est. Patient 22:01:41 MANAGER OF PROCUREMENT Rodrigo Sarah [facility] CPT-43531 Level 2 Est. Patient 22:01:11 MANAGER OF PROCUREMENT Rodrigo Sarah [facility] CPT-47484 Level 3 Est. Patient 10:12:29 MANAGER OF PROCUREMENT Rodrigo Sarah [facility] CPT-06423 Level 3 Est. Patient 11:05:44 CDT Alexis Ordaz MD [facility]-06630 Level 3 Est. Patient 14:57:20 CDT Yolande Lindsay MD [facility]-24446 Level 3 Est. Patient 14:40:57 CDT Yolande Lindsay MD [facility]70582 Level 3 Est. Patient 20:55:40 CDT Yolande Lindsay MD PhD [facility] CPT-86641 Level 3 Est. Patient 12:42:38 MANAGER OF PROCUREMENT Yolande Lindsay MD PhD [facility] CPT-91827 Level 3 Est. Patient 11:54:49 MANAGER OF PROCUREMENT Des Hines MD [facility] CPT-30880 Level 3 Est. Patient 17:06:38 CDT Dewayne PERAZA [facility] Procedures Code Procedure Name Date Entry Date Standard Description CPT-23542 Venipuncture Draw Fee 08:37:59 MANAGER OF PROCUREMENT CPT-07518 Liver Profile - LAB USE ONLY 08:37:59 MANAGER OF PROCUREMENT CPT-96563 Lipid - LAB USE ONLY 08:37:58 MANAGER OF PROCUREMENT CPT-53560 First Vx - Ix admin via ID IM or jet injects without counseling by physician 11:52:31 CDT CPT-33289 Fluzone Preservative Free Intramuscular Suspension 11:52 :31 CDT CPT-73999 Foot, left, comp min 3V - XRAY USE ONLY 09:24:54 CDT CPT-35686 Abd single AP View - XRAY USE ONLY 11:16:17 CDT CPT-86890 T spine AP/ Lat - XRAY USE ONLY 09:34:21 CDT CPT-15860 Chest 2V Frontal and Lat - XRAY USE ONLY 10:48:51 CDT CPT-85370 LS spine comp w obliq 13:28:00 MANAGER OF PROCUREMENT CPT-J1040 Depo Medrol 80 mg (Methyl Prednisolone Acetate) 10:51: 28 MANAGER OF PROCUREMENT CPT-J1100 Decadron 8mg (Dexamethasone) 10:51:28 MANAGER OF PROCUREMENT CPT-44193 Abx/Therapy Injection 10:51:28 MANAGER OF PROCUREMENT CPT-J1100 Decadron 8mg (Dexamethasone) 21:02:30 MANAGER OF PROCUREMENT CPT-J1040 Depo Medrol 80 mg (Methyl Prednisolone Acetate) 21:02: 30 MANAGER OF PROCUREMENT [id number] Event Monitor - MC Transmission 09:12:32 CDT 08/06 [id number] Event Monitor - MC review and interp 09:12:32 CDT [id number] Event Monitor - MC recording 09:12:32 CDT CPT-34599 EKG Trac and Interp 16:50:22 CDT CPT-J1030 Depo Medrol 40 mg (Methyl Prednisolone Acetate) 17:05: 54 CDT CPT-J1100 Decadron 4mg (Dexamethasone) 17:05:54 CDT CPT-81318 Abx/Therapy Injection 17:05:54 CDT CPT-J1100 Decadron 4mg (Dexamethasone) 16:55:28 CDT CPT-J1030 Depo Medrol 40 mg (Methyl Prednisolone Acetate) 16:55: 28 CDT CPT-14861 Ankle Complete - Min 3V 15:58:50 CDT CPT-82339 Knee 3V 15:58:50 CDT CPT-38466 Hip comp min 2V 15:58:50 CDT CPT-J2270 Morphine Sulfate 10 mg 14:25:44 MANAGER OF PROCUREMENT CPT-J2550 Phenergan 12.5 mg (Promethazine) 14:25:44 MANAGER OF PROCUREMENT CPT-71878 Abx/Therapy Injection 14:25:44 MANAGER OF PROCUREMENT CPT-J2550 Phenergan 12.5 mg (Promethazine) 14:08:03 MANAGER OF PROCUREMENT CPT-J2270 Morphine Sulfate 10 mg 14:08:03 MANAGER OF PROCUREMENT CPT-82234 Bladder Scan 15:00:38 CDT CPT-TCMM Transitional Care Mgmt-Moderate 09:52:22 CDT CPT-J1030 Depo Medrol 40 mg (Methyl Prednisolone Acetate) 10:55: 18 CDT CPT-J1100 Decadron 4mg (Dexamethasone) 10:55:18 CDT CPT-65976 Abx/Therapy Injection 10:55:18 CDT CPT-J1030 Depo Medrol 40 mg (Methyl Prednisolone Acetate) 10:22: 32 CDT CPT-J1100 Decadron 4mg (Dexamethasone) 10:22:32 CDT CPT-90901 Postop F/U Visit 14:37:13 CDT CPT-38530 Ankle Complete - Min 3V 17:11:58 CDT CPT-36772 Foot comp min 3V 17:11:58 CDT CPT-96482 Bladder Scan 09:56:58 CDT CPT-25332 Postop F/U Visit 09:56:58 CDT CPT-43293 Cystoscopy 09:02:42 CDT CPT-15148 Bladder Scan 09:02:42 CDT CPT-00370 Abd single AP View 16:00:35 CDT CPT-74219 Administration single or combination vaccine inc oral 10 :15:43 CDT CPT-39405 Influenza split virus > age 3 10:15:43 CDT CPT-11240 Nail Avulsion 09:24:57 CDT CPT-OV Office Visit 11:15:41 CDT CPT-27037 Abx/Therapy Injection 10:51:30 CDT CPT-J3301 Kenalog 40 mg (Triamcinolone Acetonide) 10:25:12 CDT CPT-J1100 Decadron 4mg (Dexamethasone) 10:25:12 CDT CPT-75985 Anoscopy diagnostic 10:36:12 CDT CPT-OV Office Visit 15:34:31 CDT CPT-14612 Abx/Therapy Injection 08:21:15 MANAGER OF PROCUREMENT CPT-J1885 Toradol 60 mg (Ketorolac) 10:46:35 MANAGER OF PROCUREMENT CPT-OV Office Visit 19:51:16 MANAGER OF PROCUREMENT CPT-91525 Spec Collection and Handling Fee 14:34:18 MANAGER OF PROCUREMENT CPT-PV Prev. Care Visit 14:19:18 MANAGER OF PROCUREMENT CPT-01367 Postop F/U Visit 14:47:51 MANAGER OF PROCUREMENT CPT-96353 Postop F/U Visit 15:15:14 MANAGER OF PROCUREMENT CPT-38749 Postop F/U Visit 14:41:43 CDT CPT-15582 Postop F/U Visit 15:47:46 CDT CPT-OV Office Visit 15:27:23 CDT CPT-OV Office Visit 17:20:34 CDT CPT-75298 Abx/Therapy Injection 15:05:57 CDT CPT-J1100 Decadron 8mg (Dexamethasone) 14:44:57 CDT CPT-J1040 Depo Medrol 80 mg (Methyl Prednisolone Acetate) 14:44: 57 CDT CPT-JTINJ Joint Injection 10:17:37 CDT CPT-63028 Administration 2+ single or combination vaccines inc oral 13:01:46 MANAGER OF PROCUREMENT CPT-99560 Administration single or combination vaccine inc oral 13 :01:46 MANAGER OF PROCUREMENT CPT-38380 Pneumovax 13:01:46 MANAGER OF PROCUREMENT CPT-92939 Influenza split virus > age 3 13:01:46 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
--- OUTSIDE RECORDS SUMMARY | 2017-03-21 20:57 | XMS REPORT | Clinical Summary ---
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 Yoladne Lindsay MD PhD Other disorders of coccyx ABDOMINAL PAIN, EPIGASTRIC 789.06 Resolved Yolande Lindsay MD PhD Abdominal pain, epigastric DYSPHAGIA UNSPECIFIED 787.20 Resolved Yolande Lindsay MD PhD Dysphagia, unspecified ABDOMINAL PAIN, LEFT LOWER QUADRANT 789.04 Resolved Yolande Lindsay MD PhD Abdominal pain, left lower quadrant HEMATOCHEZIA 578.1 Resolved Yolande Lindsay MD PhD Blood in stool HEMORRHOIDS, INTERNAL, WITH BLEEDING 455.2 Resolved Yloande Lindsay MD PhD Internal hemorrhoids with other [...] infarction, hx of 412 Active Hoa Otto [facility] Old myocardial infarction Pelvic pain 789.09 Active Yolande Lindsay MD PhD Abdominal pain, other specified site; multiple sites Edema 782.3 Active Yolande Lindsay MD PhD Edema Rash 782.1 Active Yolande Lindsay MD PhD Rash and other nonspecific skin eruption Back pain, lumbar 724.2 Active Gab Padron MD Lumbago Cough 786.2 Active Jillina Tyrel RAIL CAR OPERATOR Cough 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 Jillina Frazellilian RAIL CAR OPERATOR 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 Anemia 285.9 Active Gab Padron MD Anemia, unspecified Conjunctivitis 372.30 Active Jillina Tyrel RAIL CAR OPERATOR Conjunctivitis, unspecified Sinusitis 473.9 Active Jillina Frazell RAIL CAR OPERATOR Unspecified sinusitis (chronic) Nonspecific syndrome suggestive of viral illness 079.99 Active Rodrigo Sarah APRN Unspecified viral infection Laryngitis 464.00 Active Jillina Tyrel RAIL CAR OPERATOR Acute laryngitis without mention of obstruction Abdominal [...] MD Unspecified disorder of kidney and ureter ANKLE PAIN, RIGHT ICD-719.47 Inactive Yolande Lindsay [...] EXAMINATION ICD-V72.31 Inactive Yolande Lindsay MD PhD ALLERGIC REACTION, ACUTE ICD-995.3 Inactive Alexis Ordaz MD LONG-TERM (CURRENT) USE OF OTHER MEDICATIONS ICD-V58.69 Inactive Yolande Lindsay MD PhD MUSCLE PAIN ICD-729.1 Inactive Yolande Lindsay MD PhD HEADACHE ICD-784.0 Inactive Yolande Lindsay MD PhD OTHER DISORDER OF COCCYX ICD-724.79 Inactive Yolande Lindsay MD PhD FISSURE, ANAL ICD-565.0 Inactive Yolande Lindsay MD PhD CHEST PAIN, UNSPECIFIED ICD-786.50 Inactive Yolande Lindsay MD PhD ABDOMINAL PAIN, [...] 2013 Flank pain, left ICD-789.09 Inactive Yolande Linsday MD PhD ANGIOEDEMA ICD-995.1 Inactive Yolande Lindsay [...] 1/2 tab daily for 2 days PREDNISONE 50243155519 No Longer Active Gab Padron MD Active ZOFRAN ODT 4 MG TBDP 1 po q6hr PRN Nausea ONDANSETRON 13778081449 Active Rodrigo Sarah RAIL CAR OPERATOR Active IBUPROFEN 600 MG TAB 1 tablet by mouth every 6 hours for 7 days, then 1 tablet every 6 hours as needed. Take with food IBUPROFEN 53859673415 Active Rodrigo Sarah APRN Active BACTRIM DS 800-160 MG TAB 1 tab by mouth twice daily TRIMETHOPRIM-SULFAMETHOXAZOLE 52367062533 No Longer Active Gab Padron MD Active ADVAIR DISKUS 250-50 MCG/DOSE AEPB 1 puff BID FLUTICASONE- SALMETEROL 92048555636 Active Rodrigo Sarah APRN Active LEVOTHYROXINE SODIUM 75 MCG TABS Take 1 tab daily LEVOTHYROXINE SODIUM 98771151169 No Longer Active Mariana Cuadra RMA Active SYNTHROID 88 MCG ORAL TABS Take one by mouth daily LEVOTHYROXINE SODIUM 87490114036 Active Tisha Lambert APRN Active CHERATUSSIN AC 100-10 MG/5ML SYRP 1 tsp by mouth every 4 hours as needed for cough GUAIFENESIN-CODEINE 79101343332 No Longer Active Gab Padron MD Active POLYTRIM 92292-3.1 UNIT/ML-% SOLN 1 gtt to affected eye q3h x 7 days POLYMYXIN B-TRIMETHOPRIM 78218956136 No Longer Active Gab Padron MD Active FLUTICASONE PROPIONATE 50 MCG/ACT SUSP 1 to 2 sprays each nostril daily 04/21 FLUTICASONE PROPIONATE 90476919460 No Longer Active Gab Padron MD Active TRILEPTAL 600 MG TABS Take one 1 tablet in Am and 1 tablet at night OXCARBAZEPINE 29545599402 Active Gab Padron MD Active CEFDINIR 300 MG CAPS 1 po BID x 10 days CEFDINIR 27486809592 No Longer Active Rodrigo Sarah APRN Active CEFTIN 500 MG TAB 1 twice a day CEFUROXIME AXETIL 80429599608 No Longer Active Gab Padron MD Active AZITHROMYCIN 250 MG TABS 2 po qd x 1 day, then 1 po qd x 4 days AZITHROMYCIN 87053538587 No Longer Active Rodrigo Sarah APRN Active CLARITIN 10 MG TAB 1 tablet by mouth daily as needed for allergies LORATADINE 94086015930 Active Rodrigo Sarah APRN Active OXYCODONE HCL 5 MG ORAL CAPS 1 TAB PO Q HS OXYCODONE HCL 52898966100 No Longer Active Rodrigo Sarah APRN Active NIASPAN 500 MG ORAL CR-TABS 1 pill nightly x 1 week, then 2 pills nightly x 1 week, then 3 pills nightly x 1 week, then 4 pills nightly NIACIN (ANTIHYPERLIPIDEMIC) 98318224688 No Longer Active Rodrigo Sarah APRN Active NIACIN 500 MG TABS 1 pill by mouth nightly x 1 week, then 2 pills x 1 week, then 3 pills x 1 week, then 4 pills nightly - take after evening meal, with applesauce or an apple NIACIN 76944202316 No Longer Active Yolande Lindsay MD PhD Active FISH OIL 1000 MG CAPS 3 pills daily OMEGA-3 FATTY ACIDS 19891046917 Active Yolande Lindsay MD PhD Active TRIAMCINOLONE ACETONIDE 0.1 % CREA apply bid sparingly to rash TRIAMCINOLONE ACETONIDE 72979783423 Active Yolande Lindsay MD PhD Active FUROSEMIDE 20 MG TAB 1 tablet by mouth daily FUROSEMIDE 01996009888 Active Tisha Lambert APRN Active LISINOPRIL 20 MG ORAL TABS 1 tab by mouth daily LISINOPRIL 96072919481 Active Tisha Lambert APRN Active FUROSEMIDE 20 MG TABS 1 pill by mouth daily, for edema FUROSEMIDE 49851801885 No Longer Active Yolande Lindsay MD PhD Active ATORVASTATIN CALCIUM 10 MG TABS 1 pill by mouth daily, for cholesterol 09/06 ATORVASTATIN CALCIUM 82049339261 Active Tisha Lambert APRN Active CALCIUM 600+D PLUS MINERALS 600-400 MG-UNIT ORAL CHEW 1 tab by mouth daily CALCIUM CARBONATE-VIT D-MIN 14725701155 No Longer Active Yolande Lindsay MD PhD Active CYCLOBENZAPRINE HCL 10 MG TABS 1 tablet by mouth three times daily as needed for muscle spasm/pain CYCLOBENZAPRINE HCL 55078805432 Active Yolande Lindsay MD PhD Active ONDANSETRON 4 MG TBDP 1 q4h PRN nausea ONDANSETRON 91669497886 Active Yolande Lindsay MD PhD Active ADULT ASPIRIN EC LOW STRENGTH 81 MG TBEC Take 1 tablet by mouth daily 2014 ASPIRIN 40972873582 No Longer Active Yolande Lindsay MD PhD Active ZOFRAN ODT 4 MG TBDP 1 pill dissolved by mouth every 4 hours if needed for nausea ONDANSETRON 87028889813 No Longer Active Yolande Lindsay MD PhD Active CEFTIN 500 MG TAB 1 twice a day CEFUROXIME AXETIL 22822958169 No Longer Active Yolande Lindsay MD PhD Active ALBUTEROL SULFATE 0.083 % NEBU SOLN one vial per nebulizer every 4-6 hours as needed ALBUTEROL SULFATE 22906945673 No Longer Active Alexis Ordaz MD Active DOXYCYCLINE HYCLATE 100 MG CAP 1 cap by mouth twice daily DOXYCYCLINE HYCLATE 50016999752 No Longer Active Yolande Lindsay MD PhD Active CYCLOBENZAPRINE HCL 10 MG TABS 1/2 - 1 tab by mouth three times daily if needed for spasms/pain CYCLOBENZAPRINE HCL 61363132831 No Longer Active Yolande Lindsay MD PhD Active AZITHROMYCIN 250 MG TABS 2 pills on day 1, then 1 pill daily x 4 days AZITHROMYCIN 26571970365 No Longer Active Yolande Lindsay MD PhD Active XOPENEX 1.25 MG/3ML NEBU 1 neb every 4 hours if needed for cough/congestion LEVALBUTEROL HCL 66175894384 No Longer Active Yolande Lindsay MD PhD Active DOXYCYCLINE HYCLATE 100 MG TAB 1 tab twice a day for 14 days 2013 DOXYCYCLINE HYCLATE 09875687038 No Longer Active Yolande Lindsay MD PhD Active PREVACID 30 MG CPDR Take 1 tablet by mouth daily-PRN LANSOPRAZOLE 35416903847 No Longer Active Yolande Lindsay MD PhD Active PA VITAMIN D-3 2000 UNIT CAPS 1 CAP PO DAILY CHOLECALCIFEROL 20638717563 No Longer Active Yolande Lindsay MD PhD Active CEFDINIR 300 MG CAPS by mouth twice a day CEFDINIR 87979654148 No Longer Active Gab Padron MD Active TOPAMAX 50 MG TABS 1 PO twice daily TOPIRAMATE 32264949158 Active Yolande Lindsay MD PhD Active AZITHROMYCIN 250 MG TABS 2 po qd x 1 day, then 1 po qd x 4 days AZITHROMYCIN 36352145384 No Longer Active Yolande Lindsay MD PhD Active DICLOFENAC SODIUM 75 MG TBEC 1 tablet by q 12 hours PRN headaches DICLOFENAC SODIUM 80645812630 No Longer Active Yolande Lindsay MD PhD Active FLONASE 50 MCG/ACT SUSP 1 spray each nostril am and hs FLUTICASONE PROPIONATE 82327788307 No Longer Active Todd Callaway MD Active ANUSOL-HC 25 MG SUPPOSITORY 1 rectally twice a day as needed for hemorrhoids HYDROCORTISONE JAYDEN (RECTAL) 75867884882 No Longer Active Yolande Lindsay MD PhD Active ANUSOL-HC 25 MG SUPPOSITORY 1 suppository rectally each evening as needed for anal fissure HYDROCORTISONE JAYDEN (RECTAL) 25765884639 No Longer Active LONNIE Iglesias Active VALIUM 5 MG TAB 1 po 30 minutes prior to your MRI DIAZEPAM 14743378800 No Longer Active LONNIE Iglesias Active METHOCARBAMOL 750 MG TABS 1 PO QID PRN METHOCARBAMOL 89571340901 No Longer Active Daphne Wetzel APRN Active NITROSTAT 0.4 MG SUBL as directed NITROGLYCERIN 55779362048 No Longer Active Jillina Frazellilian GAUTAM Active ROBAXIN-750 750 MG TABS 2 four times a day for 3 days as needed for muscle spasm, then 1 four times a day as needed METHOCARBAMOL 40301542804 No Longer Active Jillina Frazellilian RAIL CAR OPERATOR Active HYDROCODONE-ACETAMINOPHEN 5-325 MG TABS 1 q 4-6 hrs prn HYDROCODONE-ACETAMINOPHEN 88831678166 No Longer Active Jillina Frazellilian ZAPATAN Active VERAPAMIL HCL CR 180 MG CR-TABS TAKE 1 TAB DAILY VERAPAMIL HCL 81040464934 No Longer Active Yolande Lindsay MD PhD Active BACTRIM DS 800-160 MG TAB 1 tab by mouth twice daily TRIMETHOPRIM-SULFAMETHOXAZOLE 07616007613 No Longer Active Yolande Lindsay MD PhD Active NEXIUM 40 MG PACK 1 by mouth daily ESOMEPRAZOLE MAGNESIUM 25396136657 No Longer Active Des Hines MD Active EPIPEN 2-CHARLETTE 0.3 MG/0.3ML OMARI as need for allergic reaction EPINEPHRINE 18280222698 Active Yolande Lindsay MD PhD Active NEXIUM 40 MG CPDR 1 PO Q D DAY ESOMEPRAZOLE MAGNESIUM 41944816094 No Longer Active Sadia Perry RN Active NEXIUM 40 MG PACK 1 by mouth daily NEXIUM 40 MG PACK ESOMEPRAZOLE MAGNESIUM Inactive VERAPAMIL HCL CR 180 MG CR-TABS TAKE 1 TAB DAILY VERAPAMIL HCL CR 180 MG CR-TABS VERAPAMIL HCL Inactive HYDROCODONE-ACETAMINOPHEN 5-325 MG TABS 1 q 4-6 hrs prn HYDROCODONE-ACETAMINOPHEN 5-325 MG TABS 832508 HYDROCODONE-ACETAMINOPHEN Inactive ROBAXIN-750 750 MG TABS 2 four times a day for 3 days as needed for muscle spasm, then 1 four times a day as needed ROBAXIN-750 750 MG TABS 369807 METHOCARBAMOL Inactive NITROSTAT 0.4 MG SUBL as directed NITROSTAT 0.4 MG SUBL 869371 NITROGLYCERIN Inactive METHOCARBAMOL 750 MG TABS 1 PO QID PRN METHOCARBAMOL 750 MG TABS 034081 METHOCARBAMOL Inactive VALIUM 5 MG TAB 1 po 30 minutes prior to your MRI VALIUM 5 MG TAB 065277 DIAZEPAM Inactive ANUSOL-HC 25 MG SUPPOSITORY 1 suppository rectally each evening as needed for anal fissure ANUSOL-HC 25 MG SUPPOSITORY 2812218 HYDROCORTISONE JAYDEN (RECTAL) Inactive ANUSOL-HC 25 MG SUPPOSITORY 1 rectally twice a day as needed for hemorrhoids ANUSOL-HC 25 MG SUPPOSITORY 4440535 HYDROCORTISONE JAYDEN (RECTAL) Inactive FLONASE 50 MCG/ACT SUSP 1 spray each nostril am and hs FLONASE 50 MCG/ACT SUSP FLUTICASONE PROPIONATE Inactive DICLOFENAC SODIUM 75 MG TBEC 1 tablet by q 12 hours PRN headaches DICLOFENAC SODIUM 75 MG TBEC 512456 DICLOFENAC SODIUM Inactive PA VITAMIN D-3 2000 UNIT CAPS 1 CAP PO DAILY PA VITAMIN D-3 2000 UNIT CAPS CHOLECALCIFEROL Inactive PREVACID 30 MG CPDR Take 1 tablet by mouth daily-PRN PREVACID 30 MG CPDR 535858 LANSOPRAZOLE Inactive DOXYCYCLINE HYCLATE 100 MG TAB 1 tab twice a day for 14 days 2013 DOXYCYCLINE HYCLATE 100 MG TAB 3776606 DOXYCYCLINE HYCLATE Inactive XOPENEX 1.25 MG/3ML NEBU 1 neb every 4 hours if needed for cough/congestion XOPENEX 1.25 MG/3ML NEBU 560255 LEVALBUTEROL HCL Inactive CYCLOBENZAPRINE HCL 10 MG TABS 1/2 - 1 tab by mouth three times daily if needed for spasms/pain CYCLOBENZAPRINE HCL 10 MG TABS 336171 CYCLOBENZAPRINE HCL Inactive ALBUTEROL SULFATE 0.083 % NEBU SOLN one vial per nebulizer every 4-6 hours as needed ALBUTEROL SULFATE 0.083 % NEBU SOLN 408921 ALBUTEROL SULFATE Inactive CEFTIN 500 MG TAB 1 twice a day CEFTIN 500 MG TAB 010787 CEFUROXIME AXETIL Inactive ZOFRAN ODT 4 MG TBDP 1 pill dissolved by mouth every 4 hours if needed for nausea ZOFRAN ODT 4 MG TBDP 892889 ONDANSETRON Inactive ADULT ASPIRIN EC LOW STRENGTH 81 MG TBEC Take 1 tablet by mouth daily 2014 ADULT ASPIRIN EC LOW STRENGTH 81 MG TBEC 468624 ASPIRIN Inactive CALCIUM 600+D PLUS MINERALS 600-400 [...] or an apple NIACIN 500 MG TABS 875237 NIACIN Inactive NIASPAN 500 MG ORAL CR-TABS 1 pill nightly x 1 week, then 2 pills nightly x 1 week, then 3 pills nightly x 1 week, then 4 pills nightly NIASPAN 500 MG ORAL CR-TABS NIACIN (ANTIHYPERLIPIDEMIC) Inactive OXYCODONE HCL 5 MG ORAL CAPS 1 TAB PO Q HS OXYCODONE HCL 5 MG ORAL CAPS 0569133 OXYCODONE HCL Inactive FLUTICASONE PROPIONATE 50 MCG/ACT SUSP 1 to 2 sprays each nostril daily 04/21 FLUTICASONE PROPIONATE 50 MCG/ACT SUSP 8886893 FLUTICASONE PROPIONATE Inactive POLYTRIM 57825-5.1 UNIT/ML-% SOLN 1 gtt to affected eye q3h x 7 days POLYTRIM 29979-9.1 UNIT/ML-% SOLN 326945 POLYMYXIN B- TRIMETHOPRIM Inactive CHERATUSSIN AC 100-10 MG/5ML SYRP 1 tsp by mouth every 4 hours as needed for cough CHERATUSSIN AC 100-10 MG/5ML SYRP 304485 GUAIFENESIN-CODEINE Inactive LEVOTHYROXINE SODIUM 75 MCG TABS Take 1 tab daily LEVOTHYROXINE SODIUM 75 MCG TABS 703682 LEVOTHYROXINE SODIUM Inactive BACTRIM DS 800-160 MG TAB 1 tab by mouth twice daily BACTRIM DS 800-160 MG TAB 19820606 TRIMETHOPRIM-SULFAMETHOXAZOLE Inactive AZITHROMYCIN 250 MG TABS 2 po qd x 1 day, then 1 po qd x 4 days AZITHROMYCIN 250 MG TABS 9137613 AZITHROMYCIN Inactive CEFDINIR 300 MG CAPS by mouth twice a day CEFDINIR 300 MG CAPS 20020708 CEFDINIR Inactive AZITHROMYCIN 250 MG TABS 2 pills on day 1, then 1 pill daily x 4 days AZITHROMYCIN 250 MG TABS 9582792 AZITHROMYCIN Inactive DOXYCYCLINE HYCLATE 100 MG CAP 1 cap by mouth twice daily DOXYCYCLINE HYCLATE 100 MG CAP 4915535 DOXYCYCLINE HYCLATE Inactive FUROSEMIDE 20 MG TABS 1 pill by mouth daily, for edema FUROSEMIDE 20 MG TABS 288746 FUROSEMIDE Inactive AZITHROMYCIN 250 MG TABS 2 po qd x 1 day, then 1 po qd x 4 days AZITHROMYCIN 250 MG TABS 7710646 AZITHROMYCIN Inactive CEFTIN 500 MG TAB 1 twice a day CEFTIN 500 MG TAB 621522 CEFUROXIME AXETIL Inactive CEFDINIR 300 MG CAPS 1 po BID x 10 days CEFDINIR 300 MG CAPS 20020708 CEFDINIR Inactive BACTRIM DS 800-160 MG TAB 1 tab by mouth twice daily BACTRIM DS 800-160 MG TAB 19820606 TRIMETHOPRIM-SULFAMETHOXAZOLE Inactive PREDNISONE 20 MG TAB 2 tabs daily for 3 days, 1 tab daily for 3 days, /2 tab daily for 2 days PREDNISONE 20 MG TAB 659257 PREDNISONE Inactive Immunizations Vaccine Administration Date Value Standard Description Seasonal influenza vaccine, injectable, containing preservative, for > 3 years old (Afluria, FluLaval, Fluzone, Fluvirin, Fluarix, Agriflu(>=18 yo)) Fluzone (>3 yrs.) [[id number]] Influenza, seasonal, injectable influenza immunization (Flu Vax) has been administered Influenza - Unspecified Formulation [CVX88] influenza virus vaccine, unspecified formulation pneumococcal immunization administered Pneumovax 23 [CVX33] pneumococcal polysaccharide vaccine, 23 valent Seasonal influenza vaccine, injectable, containing preservative, for > 3 years old (Afluria, FluLaval, Fluzone, Fluvirin, Fluarix, Agriflu(>=18 yo)) Fluzone (>3 yrs.) [EUO070] Influenza, seasonal, injectable dT (Diphtheria and Tetanus) booster given given Td(adult) unspecified formulation Boostrix (Tetanus toxoid, reduced diphtheria toxoid and acellular pertussis vaccine, adsorbed), booster Boostrix [[id number]] tetanus toxoid, reduced diphtheria toxoid, and acellular pertussis vaccine, adsorbed Vital Signs Date Name Value Unit Range Description blood pressure, diastolic - 8462-4 73 mm[Hg] [...] E&M - 3141-9 238.5 [lb_av] Weight Measured Diagnostic Results Date Name Value Unit Range Description Lab Report: Basic Metabolic Panel - Chemistry sodium, serum 142 mmol/L 880-222 9229/06/30 potassium, serum 4.4 mmol/L 3.5-5.2 chloride, serum [...] Rate - Chemistry sodium, serum 139 mmol/L 598-884 1405/03/24 carbon dioxide, venous blood 22.4 mmol/L 21.0-32.0 [...] ... - Chemistry sodium, serum 143 mmol/L 104-533 6466/05/02 carbon dioxide, venous blood 25.6 mmol/L 21.0-32.0 [...] PANEL - Chemistry cholesterol, serum 166 mg/dL 783-322 1287/12/06 triglyceride, serum, fasting 86 mg/dL 30-200 HDL [...] dipstick Negative Negative sodium, serum 142 mmol/L 738-629 6342/07/18 carbon dioxide, venous blood 27.8 mmol/L 21.0-32.0 [...] - Basic LDL target level 100 mg/dL LDL target level 100 mg/dL Office Visit: 3 MO F/U - Chemistry HDL cholesterol, serum, target level 40 mg/dL triglyceride, target level 150 mg/dL cholesterol, target level 200 mg/dL HDL cholesterol, serum, target level 40 [...] negative Encounters Code Encounter Date Provider Facility CPT-04261 Level 4 Est. Patient 19:55:18 RV DETAILER Jared Og MD [facility] CPT-00232 Level 3 Est. Patient 20:13:34 RV DETAILER Jared Og MD [facility] CPT-59164 Level 4 Est. Patient 16:31:27 CDT Gab Padron MD [facility] CPT-29340 Level 2 Est. Patient 12:23:38 CDT Jared Og MD [facility] CPT-25234 Level 3 Est. Patient 11:01:51 CDT Gab Padron MD [facility] CPT-80751 Level 3 Est. Patient 15:27:02 CDT Jared Og MD [facility] CPT-06783 Level 4 Est. Patient 09:25:27 CDT Gab Padron MD [facility] CPT-56159 Level 3 Est. Patient 10:29:41 CDT Rodrigo Sarah [facility] CPT-84288 Level 4 Est. Patient 17:51:05 CDT Gab Padron MD [facility] CPT-67406 Level 3 Est. Patient 14:18:08 CDT Gab Padron MD [facility] CPT-12585 Level 4 Est. Patient 10:18:54 CDT Gab Padron MD [facility] CPT-00718 Level 3 Est. Patient 11:30:07 CDT Rodrigo Sarah [facility] CPT-78438 Level 4 Est. Patient 21:02:30 RV DETAILER Gab Padron MD [facility] CPT-54018 Level 3 Est. Patient 11:02:19 RV DETAILER Gab Padron MD [facility] CPT-17748 Level 4 Est. Patient 22:24:31 RV DETAILER Gab Padron MD [facility] CPT-36947 Level 3 Est. Patient 18:33:46 RV DETAILER Gab Padron MD [facility]-71531 Level 3 Est. Patient 16:19:11 CDT Yolande Lindsay MD [facility]-10040 Level 3 Est. Patient 18:59:14 CDT Yolande Lindsay MD [facility]-76250 Level 4 Est. Patient 21:29:26 CDT Yolande Lindsay MD [facility]-42355 Level 3 Est. Patient 07:37:45 CDT Yolande Lindsay MD [facility]-87538 Level 3 Est. Patient 17:03:46 CDT Yolande Lindsay MD [facility]-96389 Level 4 Est. Patient 20:02:13 RV DETAILER Yolande Lindsay MD [facility]-06131 Level 3 Est. Patient 16:02:07 RV DETAILER Alexis Ordaz MD [facility] CPT-30959 Level 3 Est. Patient 12:41:24 RV DETAILER Yolande Lindsay MD [facility]-63146 Level 3 Est. Patient 15:41:20 RV DETAILER Yolande Lindsay MD [facility]-82177 Level 3 Est. Patient 13:20:02 RV DETAILER Yolande Lindsay MD [facility]-55030 Level 3 Est. Patient 15:00:38 CDT Jared Og MD [facility]-17657 Level 3 Est. Patient 10:22:32 CDT Yolande Lindsay MD [facility]-15837 Level 3 Est. Patient 17:12:58 CDT Yolande Lindsay MD [facility]-36278 Level 4 Est. Patient 13:30:58 CDT Yolande Lindsay MD [facility]-06296 Level 4 New Patient 09:02:42 CDT Jared Og MD [facility]-22643 Level 3 Est. Patient 08:19:07 CDT Yolande Lindsay MD [facility]-64569 Level 3 Est. Patient 12:00:13 RV DETAILER Gab Padron MD [facility]-71715 Level 3 Est. Patient 16:15:23 RV DETAILER Yolande Lindsay MD [facility]-35451 Level 2 Est. Patient 19:47:15 CDT Yolande Lindsay MD [facility]-91027 Level 3 Est. Patient 21:38:31 CDT Yolande Lindsay MD [facility]-56663 Level 3 Est. Patient 10:25:12 CDT Adiel PEARZA [facility]-74360 Level 4 Est. Patient 10:51:58 CDT Yolande Lindsay MD [facility]-91098 Level 3 Est. Patient 14:04:55 RV DETAILER Rodrigo Sarah [facility]-11997 Level 3 Est. Patient 10:46:35 RV DETAILER Rodrigo Sarah [facility]-67018 Level 3 Est. Patient 14:24:37 RV DETAILER Yolande Lindsay MD [facility]-51745 Level 3 Est. Patient 17:41:58 RV DETAILER Yolande Lindsay MD [facility]-31945 Level 2 Est. Patient 22:01:41 RV DETAILER Rodrigo Sarah [facility]-15805 Level 2 Est. Patient 22:01:11 RV DETAILER Rodrigo Sarah [facility]-79162 Level 3 Est. Patient 10:12:29 RV DETAILER Rodrigo Sarah APRN [facility] CPT-56740 Level 3 Est. Patient 11:05:44 CDT Alexis Ordaz MD [facility] CPT-79211 Level 3 Est. Patient 14:57:20 CDT Yolande Lindsay MD [facility] CPT-96976 Level 3 Est. Patient 14:40:57 CDT Yolande Lindsay MD [facility] CPT-09909 Level 3 Est. Patient 20:55:40 CDT Yolande Lindsay MD [facility] CPT-29585 Level 3 Est. Patient 12:42:38 RV DETAILER Yolande Lindsay MD [facility] CPT-88686 Level 3 Est. Patient 11:54:49 RV DETAILER Des Hines MD [facility] CPT-98083 Level 3 Est. Patient 17:06:38 CDT Dewayne PERAZA [facility] Procedures Code Procedure Name Date Entry Date Standard Description CPT-72600 Venipuncture Draw Fee 08:37:59 RV DETAILER CPT-14098 Liver Profile - LAB USE ONLY 08:37:59 RV DETAILER CPT-59988 Lipid - LAB USE ONLY 08:37:58 RV DETAILER CPT-69334 First Vx - Ix admin via ID IM or jet injects without counseling by physician 11:52:31 CDT CPT-22961 Fluzone Preservative Free Intramuscular Suspension 11:52 :31 CDT CPT-52227 Foot, left, comp min 3V - XRAY USE ONLY 09:24:54 CDT CPT-25398 Abd single AP View - XRAY USE ONLY 11:16:17 CDT CPT-46225 T spine AP/ Lat - XRAY USE ONLY 09:34:21 CDT CPT-09864 Chest 2V Frontal and Lat - XRAY USE ONLY 10:48:51 CDT CPT-61312 LS spine comp w obliq 13:28:00 RV DETAILER CPT-J1040 Depo Medrol 80 mg (Methyl Prednisolone Acetate) 10:51: 28 RV DETAILER CPT-J1100 Decadron 8mg (Dexamethasone) 10:51:28 RV DETAILER CPT-39131 Abx/Therapy Injection 10:51:28 RV DETAILER CPT-J1100 Decadron 8mg (Dexamethasone) 21:02:30 RV DETAILER CPT-J1040 Depo Medrol 80 mg (Methyl Prednisolone Acetate) 21:02: 30 RV DETAILER [id number] Event Monitor - MC Transmission 09:12:32 CDT 08/06 [id number] Event Monitor - MC review and interp 09:12:32 CDT [id number] Event Monitor - MC recording 09:12:32 CDT CPT-92013 EKG Trac and Interp 16:50:22 CDT CPT-J1030 Depo Medrol 40 mg (Methyl Prednisolone Acetate) 17:05: 54 CDT CPT-J1100 Decadron 4mg (Dexamethasone) 17:05:54 CDT CPT-52463 Abx/Therapy Injection 17:05:54 CDT CPT-J1100 Decadron 4mg (Dexamethasone) 16:55:28 CDT CPT-J1030 Depo Medrol 40 mg (Methyl Prednisolone Acetate) 16:55: 28 CDT CPT-10358 Ankle Complete - Min 3V 15:58:50 CDT CPT-15958 Knee 3V 15:58:50 CDT CPT-30264 Hip comp min 2V 15:58:50 CDT CPT-J2270 Morphine Sulfate 10 mg 14:25:44 RV DETAILER CPT-J2550 Phenergan 12.5 mg (Promethazine) 14:25:44 RV DETAILER CPT-26454 Abx/Therapy Injection 14:25:44 RV DETAILER CPT-J2550 Phenergan 12.5 mg (Promethazine) 14:08:03 RV DETAILER CPT-J2270 Morphine Sulfate 10 mg 14:08:03 RV DETAILER CPT-40913 Bladder Scan 15:00:38 CDT CPT-TCMM Transitional Care Mgmt-Moderate 09:52:22 CDT CPT-J1030 Depo Medrol 40 mg (Methyl Prednisolone Acetate) 10:55: 18 CDT CPT-J1100 Decadron 4mg (Dexamethasone) 10:55:18 CDT CPT-05815 Abx/Therapy Injection 10:55:18 CDT CPT-J1030 Depo Medrol 40 mg (Methyl Prednisolone Acetate) 10:22: 32 CDT CPT-J1100 Decadron 4mg (Dexamethasone) 10:22:32 CDT CPT-73381 Postop F/U Visit 14:37:13 CDT CPT-40549 Ankle Complete - Min 3V 17:11:58 CDT CPT-54759 Foot comp min 3V 17:11:58 CDT CPT-62790 Bladder Scan 09:56:58 CDT CPT-18732 Postop F/U Visit 09:56:58 CDT CPT-01736 Cystoscopy 09:02:42 CDT CPT-07157 Bladder Scan 09:02:42 CDT CPT-24474 Abd single AP View 16:00:35 CDT CPT-97405 Administration single or combination vaccine inc oral 10 :15:43 CDT CPT-68444 Influenza split virus > age 3 10:15:43 CDT CPT-81190 Nail Avulsion 09:24:57 CDT CPT-OV Office Visit 11:15:41 CDT CPT-74052 Abx/Therapy Injection 10:51:30 CDT CPT-J3301 Kenalog 40 mg (Triamcinolone Acetonide) 10:25:12 CDT CPT-J1100 Decadron 4mg (Dexamethasone) 10:25:12 CDT CPT-56507 Anoscopy diagnostic 10:36:12 CDT CPT-OV Office Visit 15:34:31 CDT CPT-76879 Abx/Therapy Injection 08:21:15 RV DETAILER CPT-J1885 Toradol 60 mg (Ketorolac) 10:46:35 RV DETAILER CPT-OV Office Visit 19:51:16 RV DETAILER CPT-68880 Spec Collection and Handling Fee 14:34:18 RV DETAILER CPT-PV Prev. Care Visit 14:19:18 RV DETAILER CPT-46699 Postop F/U Visit 14:47:51 RV DETAILER CPT-13063 Postop F/U Visit 15:15:14 RV DETAILER CPT-47618 Postop F/U Visit 14:41:43 CDT CPT-98550 Postop F/U Visit 15:47:46 CDT CPT-OV Office Visit 15:27:23 CDT CPT-OV Office Visit 17:20:34 CDT CPT-08590 Abx/Therapy Injection 15:05:57 CDT CPT-J1100 Decadron 8mg (Dexamethasone) 14:44:57 CDT CPT-J1040 Depo Medrol 80 mg (Methyl Prednisolone Acetate) 14:44: 57 CDT CPT-JTINJ Joint Injection 10:17:37 CDT CPT-36236 Administration 2+ single or combination vaccines inc oral 13:01:46 RV DETAILER CPT-41839 Administration single or combination vaccine inc oral 13 :01:46 RV DETAILER CPT-18221 Pneumovax 13:01:46 RV DETAILER CPT-50234 Influenza split virus > age 3 13:01:46 RV DETAILER CPT-99725 Administration single or combination vaccine inc oral 08 :56:49 CDT CPT-47500 Tdap 08:56:49 CDT
--- OUTSIDE RECORDS SUMMARY | 2017-03-21 20:58 | XMS REPORT | Clinical Summary ---
Author Author Admin, MARGRET Organization [employer] Address Unknown Phone Unavailable Allergies, Adverse Reactions, Alerts Allergy Name Reaction Description Start Date Severity Status Provider VALENTIN Critical Active Rodrigo Montemayorl CERTIFIED MORTICIAN CHLORHEXIDINE GLUCONATE tongue and gums swollen Critical Active Hoa Kabaford RMA NORFLEX Rash Critical Active Rowenaina Farshadzell CERTIFIED MORTICIAN TRAZODONE HCL sees things Critical Active Dewayne [...] ankle sprain Hip pain, left 719.45 Resolved Yolnade Lindsay MD PhD Pain in joint involving pelvic region and thigh Palpitations 785.1 Active Yolande Lindsay MD PhD Palpitations 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 Erum Sykes 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 Myocardial infarction, hx of 412 Active Hoa Otto [facility] Old myocardial infarction Pelvic pain 789.09 Active Yolande Lindsay MD PhD Abdominal pain, other specified site; multiple sites Edema 782.3 Active Yolande Lindsay MD PhD Edema Rash 782.1 Active Yolande Lindsay MD PhD Rash and other nonspecific skin eruption Back pain, lumbar 724.2 Active Gab Padron MD Lumbago Cough 786.2 Active Jillina Tyrel CERTIFIED MORTICIAN Cough 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 Jillina Frazellilian ZAPATAN 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 Anemia 285.9 Active Gab Padron MD Anemia, unspecified Conjunctivitis 372.30 Active Jillnacho Sarah APRN Conjunctivitis, unspecified Sinusitis 473.9 Active Jillina Frazell CERTIFIED MORTICIAN Unspecified sinusitis (chronic) FOOT PAIN, RIGHT ICD-729.5 Inactive Yolande Lindasy MD PhD ANKLE PAIN, RIGHT ICD-719.47 Inactive [...] 4 hours as needed for cough GUAIFENESIN-CODEINE 01649677509 No Longer Active Gab Padron MD Active POLYTRIM 64033-6.1 UNIT/ML-% SOLN 1 gtt to affected eye q3h x 7 days POLYMYXIN B-TRIMETHOPRIM 05100647191 No Longer Active Gab Padron MD Active FLUTICASONE PROPIONATE 50 MCG/ACT SUSP 1 to 2 sprays each nostril daily 04/21 FLUTICASONE PROPIONATE 00532452374 No Longer Active Gab Padron MD Active TRILEPTAL 600 MG TABS Take one 1 tablet in Am and 1 tablet at night OXCARBAZEPINE 40569332352 Active Gab Padron MD Active CEFDINIR 300 MG CAPS 1 po BID x 10 days CEFDINIR 56029972583 No Longer Active Rodrigo Sarah APRN Active CEFTIN 500 MG TAB 1 twice a day CEFUROXIME AXETIL 66411297477 No Longer Active Gab Padron MD Active AZITHROMYCIN 250 MG TABS 2 po qd x 1 day, then 1 po qd x 4 days AZITHROMYCIN 61525686486 No Longer Active Rodrigo Sarah APRN Active CLARITIN 10 MG TAB 1 tablet by mouth daily as needed for allergies LORATADINE 20255730739 Active Rodrigo Sarah APRN Active OXYCODONE HCL 5 MG ORAL CAPS 1 TAB PO Q HS OXYCODONE HCL 42788139539 No Longer Active Rodrigo Sarah APRN Active NIASPAN 500 MG ORAL CR-TABS 1 pill nightly x 1 week, then 2 pills nightly x 1 week, then 3 pills nightly x 1 week, then 4 pills nightly NIACIN (ANTIHYPERLIPIDEMIC) 53789203591 No Longer Active Rodrigo Sarah APRN Active NIACIN 500 MG TABS 1 pill by mouth nightly x 1 week, then 2 pills x 1 week, then 3 pills x 1 week, then 4 pills nightly - take after evening meal, with applesauce or an apple NIACIN 56169676698 No Longer Active Yolande Lindsay MD PhD Active FISH OIL 1000 MG CAPS 3 pills daily OMEGA-3 FATTY ACIDS 68041070932 Active Yolande Lindsay MD PhD Active TRIAMCINOLONE ACETONIDE 0.1 % CREA apply bid sparingly to rash TRIAMCINOLONE ACETONIDE 63993241611 Active Yolande Lindsay MD PhD Active FUROSEMIDE 20 MG TAB 1 tablet by mouth daily FUROSEMIDE 93602139887 Active Yolande Lindsay MD PhD Active LISINOPRIL 20 MG ORAL TABS 1 tab by mouth daily LISINOPRIL 28511105331 Active Gab Padron MD Active FUROSEMIDE 20 MG TABS 1 pill by mouth daily, for edema FUROSEMIDE 89795237902 No Longer Active Yolande Lindsay MD PhD Active ATORVASTATIN CALCIUM 10 MG TABS 1 pill by mouth daily, for cholesterol 09/06 ATORVASTATIN CALCIUM 98985127925 Active Yolande Lindsay MD PhD Active CALCIUM 600+D PLUS MINERALS 600-400 MG-UNIT ORAL CHEW 1 tab by mouth daily CALCIUM CARBONATE-VIT D-MIN 55722474987 No Longer Active Yolande Lindsay MD PhD Active CYCLOBENZAPRINE HCL 10 MG TABS 1 tablet by mouth three times daily as needed for muscle spasm/pain CYCLOBENZAPRINE HCL 07012987929 Active Yolande Lindsay MD PhD Active ONDANSETRON 4 MG TBDP 1 q4h PRN nausea ONDANSETRON 94662745216 Active Yolande Lindsay MD PhD Active ADULT ASPIRIN EC LOW STRENGTH 81 MG TBEC Take 1 tablet by mouth daily 2014 ASPIRIN 44907556850 No Longer Active Yolande Lindsay MD PhD Active ZOFRAN ODT 4 MG TBDP 1 pill dissolved by mouth every 4 hours if needed for nausea ONDANSETRON 57786497528 No Longer Active Yolande Lindsay MD PhD Active CEFTIN 500 MG TAB 1 twice a day CEFUROXIME AXETIL 37190727446 No Longer Active Yolande Lindsay MD PhD Active ALBUTEROL SULFATE 0.083 % NEBU SOLN one vial per nebulizer every 4-6 hours as needed ALBUTEROL SULFATE 08408677098 No Longer Active Alexis Ordaz MD Active DOXYCYCLINE HYCLATE 100 MG CAP 1 cap by mouth twice daily DOXYCYCLINE HYCLATE 43846381593 No Longer Active Yolande Lindsay MD PhD Active CYCLOBENZAPRINE HCL 10 MG TABS 1/2 - 1 tab by mouth three times daily if needed for spasms/pain CYCLOBENZAPRINE HCL 31599730613 No Longer Active Yolande Lindsay MD PhD Active AZITHROMYCIN 250 MG TABS 2 pills on day 1, then 1 pill daily x 4 days AZITHROMYCIN 88685519546 No Longer Active Yolande Lindsay MD PhD Active XOPENEX 1.25 MG/3ML NEBU 1 neb every 4 hours if needed for cough/congestion LEVALBUTEROL HCL 64138389121 No Longer Active Yolande Lindsay MD PhD Active DOXYCYCLINE HYCLATE 100 MG TAB 1 tab twice a day for 14 days 2013 DOXYCYCLINE HYCLATE 87631314083 No Longer Active Yolande Lindsay MD PhD Active LEVOTHYROXINE SODIUM 75 MCG TABS Take 1 tab daily LEVOTHYROXINE SODIUM 58242050642 Active Gab Padron MD Active PREVACID 30 MG CPDR Take 1 tablet by mouth daily-PRN LANSOPRAZOLE 21571283001 No Longer Active Yolande Lindsay MD PhD Active PA VITAMIN D-3 2000 UNIT CAPS 1 CAP PO DAILY CHOLECALCIFEROL 22928918110 No Longer Active Yolande Lindsay MD PhD Active CEFDINIR 300 MG CAPS by mouth twice a day CEFDINIR 81370413629 No Longer Active Gab Padron MD Active TOPAMAX 50 MG TABS 1 PO twice daily TOPIRAMATE 36578197096 Active Yolande Lindsay MD PhD Active AZITHROMYCIN 250 MG TABS 2 po qd x 1 day, then 1 po qd x 4 days AZITHROMYCIN 03123634054 No Longer Active Yolande Lindsay MD PhD Active DICLOFENAC SODIUM 75 MG TBEC 1 tablet by q 12 hours PRN headaches DICLOFENAC SODIUM 44822323834 No Longer Active Yolande Lindsay MD PhD Active FLONASE 50 MCG/ACT SUSP 1 spray each nostril am and hs FLUTICASONE PROPIONATE 23755553389 No Longer Active Todd Callaway MD Active ANUSOL-HC 25 MG SUPPOSITORY 1 rectally twice a day as needed for hemorrhoids HYDROCORTISONE JAYDEN (RECTAL) 14096699375 No Longer Active Yolande Lindsay MD PhD Active ANUSOL-HC 25 MG SUPPOSITORY 1 suppository rectally each evening as needed for anal fissure HYDROCORTISONE JAYDEN (RECTAL) 53000052452 No Longer Active LONNIE Iglesias Active VALIUM 5 MG TAB 1 po 30 minutes prior to your MRI DIAZEPAM 61333264179 No Longer Active FredoniaLONNIE Collazo Active METHOCARBAMOL 750 MG TABS 1 PO QID PRN METHOCARBAMOL 30003744072 No Longer Active Daphne Wetzel APRN Active NITROSTAT 0.4 MG SUBL as directed NITROGLYCERIN 99793248105 No Longer Active Rodrigo Sarah CERTIFIED MORTICIAN Active ROBAXIN-750 750 MG TABS 2 four times a day for 3 days as needed for muscle spasm, then 1 four times a day as needed METHOCARBAMOL 93629792004 No Longer Active Rodrigo Sarah APRN Active HYDROCODONE-ACETAMINOPHEN 5-325 MG TABS 1 q 4-6 hrs prn HYDROCODONE-ACETAMINOPHEN 08571274930 No Longer Active Silvestrellnacho Sarah APRN Active VERAPAMIL HCL CR 180 MG CR-TABS TAKE 1 TAB DAILY VERAPAMIL HCL 48282459136 No Longer Active Yolande Lindsay MD PhD Active BACTRIM DS 800-160 MG TAB 1 tab by mouth twice daily TRIMETHOPRIM-SULFAMETHOXAZOLE 01734762156 No Longer Active Yolande Lindsay MD PhD Active NEXIUM 40 MG PACK 1 by mouth daily ESOMEPRAZOLE MAGNESIUM 84860644103 No Longer Active Des Hines MD Active EPIPEN 2-CHARLETTE 0.3 MG/0.3ML OMARI as need for allergic reaction EPINEPHRINE 01003786352 Active Yolande Lindsay MD PhD Active NEXIUM 40 MG CPDR 1 PO Q D DAY ESOMEPRAZOLE MAGNESIUM 79585659327 No Longer Active Sadia Perry RN Active NEXIUM 40 MG PACK 1 by mouth daily NEXIUM 40 MG PACK ESOMEPRAZOLE MAGNESIUM Inactive VERAPAMIL HCL CR 180 MG CR-TABS TAKE 1 TAB DAILY VERAPAMIL HCL CR 180 MG CR-TABS VERAPAMIL HCL Inactive HYDROCODONE-ACETAMINOPHEN 5-325 MG TABS 1 q 4-6 hrs prn HYDROCODONE-ACETAMINOPHEN 5-325 MG TABS 112590 HYDROCODONE-ACETAMINOPHEN Inactive ROBAXIN-750 750 MG TABS 2 four times a day for 3 days as needed for muscle spasm, then 1 four times a day as needed ROBAXIN-750 750 MG TABS 888558 METHOCARBAMOL Inactive NITROSTAT 0.4 MG SUBL as directed NITROSTAT 0.4 MG SUBL NITROGLYCERIN Inactive METHOCARBAMOL 750 MG TABS 1 PO QID PRN METHOCARBAMOL 750 MG TABS 476432 METHOCARBAMOL Inactive VALIUM 5 MG TAB 1 po 30 minutes prior to your MRI VALIUM 5 MG TAB 749900 DIAZEPAM Inactive ANUSOL-HC 25 MG SUPPOSITORY 1 suppository rectally each evening as needed for anal fissure ANUSOL-HC 25 MG SUPPOSITORY 1789442 HYDROCORTISONE JAYDEN (RECTAL) Inactive ANUSOL-HC 25 MG SUPPOSITORY 1 rectally twice a day as needed for hemorrhoids ANUSOL-HC 25 MG SUPPOSITORY 2283729 HYDROCORTISONE JAYDEN (RECTAL) Inactive FLONASE 50 MCG/ACT SUSP 1 spray each nostril am and hs FLONASE 50 MCG/ACT SUSP FLUTICASONE PROPIONATE Inactive DICLOFENAC SODIUM 75 MG TBEC 1 tablet by q 12 hours PRN headaches DICLOFENAC SODIUM 75 MG TBEC 207720 DICLOFENAC SODIUM Inactive PA VITAMIN D-3 2000 UNIT CAPS 1 CAP PO DAILY PA VITAMIN D-3 2000 UNIT CAPS CHOLECALCIFEROL Inactive PREVACID 30 MG CPDR Take 1 tablet by mouth daily-PRN PREVACID 30 MG CPDR 316169 LANSOPRAZOLE Inactive DOXYCYCLINE HYCLATE 100 MG TAB 1 tab twice a day for 14 days 2013 DOXYCYCLINE HYCLATE 100 MG TAB 3903467 DOXYCYCLINE HYCLATE Inactive XOPENEX 1.25 MG/3ML NEBU 1 neb every 4 hours if needed for cough/congestion XOPENEX 1.25 MG/3ML BANNER 676097 LEVALBUTEROL HCL Inactive CYCLOBENZAPRINE HCL 10 MG TABS 1/2 - 1 tab by mouth three times daily if needed for spasms/pain CYCLOBENZAPRINE HCL 10 MG TABS 310019 CYCLOBENZAPRINE HCL Inactive ALBUTEROL SULFATE 0.083 % NEBU SOLN one vial per nebulizer every 4-6 hours as needed ALBUTEROL SULFATE 0.083 % NEBU SOLN 374581 ALBUTEROL SULFATE Inactive CEFTIN 500 MG TAB 1 twice a day CEFTIN 500 MG TAB 302593 CEFUROXIME AXETIL Inactive ZOFRAN ODT 4 MG TBDP 1 pill dissolved by mouth every 4 hours if needed for nausea ZOFRAN ODT 4 MG TBDP 602771 ONDANSETRON Inactive ADULT ASPIRIN EC LOW STRENGTH 81 MG TBEC Take 1 tablet by mouth daily 2014 ADULT ASPIRIN EC LOW STRENGTH 81 MG TBEC 536584 ASPIRIN Inactive CALCIUM 600+D PLUS MINERALS 600-400 [...] or an apple NIACIN 500 MG TABS 137346 NIACIN Inactive NIASPAN 500 MG ORAL CR-TABS 1 pill nightly x 1 week, then 2 pills nightly x 1 week, then 3 pills nightly x 1 week, then 4 pills nightly NIASPAN 500 MG ORAL CR-TABS NIACIN (ANTIHYPERLIPIDEMIC) Inactive OXYCODONE HCL 5 MG ORAL CAPS 1 TAB PO Q HS OXYCODONE HCL 5 MG ORAL CAPS 9031060 OXYCODONE HCL Inactive FLUTICASONE PROPIONATE 50 MCG/ACT SUSP 1 to 2 sprays each nostril daily 04/21 FLUTICASONE PROPIONATE 50 MCG/ACT SUSP 191079 FLUTICASONE PROPIONATE Inactive POLYTRIM 74164-9.1 UNIT/ML-% SOLN 1 gtt to affected eye q3h x 7 days POLYTRIM 60903-9.1 UNIT/ML-% SOLN 446375 POLYMYXIN B- TRIMETHOPRIM Inactive CHERATUSSIN AC 100-10 MG/5ML SYRP 1 tsp by mouth every 4 hours as needed for cough CHERATUSSIN AC 100-10 MG/5ML SYRP 742095 GUAIFENESIN-CODEINE Inactive BACTRIM DS 800-160 MG TAB 1 tab by mouth twice daily BACTRIM DS 800-160 MG TAB 333956 TRIMETHOPRIM-SULFAMETHOXAZOLE Inactive AZITHROMYCIN 250 MG TABS 2 po qd x 1 day, then 1 po qd x 4 days AZITHROMYCIN 250 MG TABS 3155745 AZITHROMYCIN Inactive CEFDINIR 300 MG CAPS by mouth twice a day CEFDINIR 300 MG CAPS 558807 CEFDINIR Inactive AZITHROMYCIN 250 MG TABS 2 pills on day 1, then 1 pill daily x 4 days AZITHROMYCIN 250 MG TABS 2864757 AZITHROMYCIN Inactive DOXYCYCLINE HYCLATE 100 MG CAP 1 cap by mouth twice daily DOXYCYCLINE HYCLATE 100 MG CAP 6423801 DOXYCYCLINE HYCLATE Inactive FUROSEMIDE 20 MG TABS 1 pill by mouth daily, for edema FUROSEMIDE 20 MG TABS 385747 FUROSEMIDE Inactive AZITHROMYCIN 250 MG TABS 2 po qd x 1 day, then 1 po qd x 4 days AZITHROMYCIN 250 MG TABS 6676981 AZITHROMYCIN Inactive CEFTIN 500 MG TAB 1 twice a day CEFTIN 500 MG TAB 726561 CEFUROXIME AXETIL Inactive CEFDINIR 300 MG CAPS 1 po BID x 10 days CEFDINIR 300 MG CAPS 567864 CEFDINIR Inactive Immunizations Vaccine Administration Date Value Standard Description Seasonal influenza vaccine, injectable, containing preservative, for > 3 years old (Afluria, FluLaval, Fluzone, Fluvirin, Fluarix, Agriflu(>=18 yo)) Fluzone (>3 yrs.) [SIM601] Influenza, seasonal, injectable influenza immunization (Flu Vax) has been administered Influenza - Unspecified Formulation [CVX88] influenza virus vaccine, unspecified formulation Seasonal influenza vaccine, injectable, containing preservative, for > 3 years old (Afluria, FluLaval, Fluzone, Fluvirin, Fluarix, Agriflu(>=18 yo)) Fluzone (>3 yrs.) [CJK216] Influenza, seasonal, injectable pneumococcal immunization administered Pneumovax 23 [CVX33] pneumococcal polysaccharide vaccine, 23 valent dT (Diphtheria and Tetanus) booster given given Td(adult) unspecified formulation Boostrix (Tetanus toxoid, reduced diphtheria toxoid and acellular pertussis vaccine, adsorbed), booster Boostrix [SVR722] tetanus toxoid, reduced diphtheria toxoid, and acellular [...] pressure, diastolic - 8462-4 82 mm[Hg] BP wedlon blood pressure, systolic - 8480-6 127 mm[Hg] [...] Panel - Chemistry sodium, serum 145 mmol/L 286-615 3735/06/22 potassium, serum 3.9 mmol/L 3.5-5.2 chloride, serum 109 mmol/L 98-107 carbon dioxide, venous blood 23.4 mmol/L 21.0-32.0 blood glucose 92 mg/dL 65-110 calcium, serum 8.2 mg/dL 8.5-10.1 urea nitrogen, blood 24 mg/dL 7-18 creatinine, serum 1.30 mg/dL 0.60-1.30 Lab Report: [facility] Advanced Lipid and Inlammation Panel /02082 - Chemistry cholesterol, serum 198 mg/dL 665-084 8548/04/30 HDL cholesterol, serum 65 mg/dL > OR=46 triglyceride, serum, fasting 82 mg/dL LDL cholesterol, serum 117 mg/dL cholesterol/HDL ratio, serum 3.0 calc < OR=5.0 cholesterol, serum 148 mg/dL 718-031 5042/09/02 HDL cholesterol, serum 55 mg/dL > OR=46 [...] (L) - Chemistry sodium, serum 145 mmol/L 174-254 1627/09/02 potassium, serum 4.6 mmol/L 3.5-5.2 chloride, serum [...] 51 mg/dL 30-200 cholesterol, serum 173 mg/dL 672-973 4670/04/28 HDL cholesterol, serum 63 mg/dL 32-96 LDL [...] rapid flu test Negative Negative;Positive Office Visit: 3 MO F/U - Chemistry cholesterol, target level 200 mg/dL LDL target level 100 mg/dL HDL cholesterol, serum, target level 40 mg/dL triglyceride, target level 150 mg/dL Office Visit: GET EST - Chemistry cholesterol, target level 200 mg/dL LDL target level 100 mg/dL HDL cholesterol, serum, target level 40 mg/dL triglyceride, target level 150 mg/dL Encounters Code Encounter Date Provider Facility CPT-51387 Level 4 Est. Patient 21:02:30 SENIOR CONTROLS ANALYST Gab Padron MD [facility] CPT-13110 Level 3 Est. Patient 11:02:19 SENIOR CONTROLS ANALYST Gab Padron MD [facility] CPT-78058 Level 4 Est. Patient 22:24:31 SENIOR CONTROLS ANALYST Gab Padron MD [facility]-30398 Level 3 Est. Patient 18:33:46 SENIOR CONTROLS ANALYST Gab Padron MD [facility]-35836 Level 3 Est. Patient 16:19:11 CDT Yolande Lindsay MD [facility]-50875 Level 3 Est. Patient 18:59:14 CDT Yolande Lindsay MD [facility]-12824 Level 4 Est. Patient 21:29:26 CDT Yolande Lindsay MD [facility]-26535 Level 3 Est. Patient 07:37:45 CDT Yolande Lindsay MD [facility]-43612 Level 3 Est. Patient 17:03:46 CDT Yolande Lindsay MD [facility]-55425 Level 4 Est. Patient 20:02:13 SENIOR CONTROLS ANALYST Yolande Lindsay MD [facility]-61793 Level 3 Est. Patient 16:02:07 SENIOR CONTROLS ANALYST Alexis Ordaz MD [facility]-02859 Level 3 Est. Patient 12:41:24 SENIOR CONTROLS ANALYST Yolande Lindsay MD [facility]-59109 Level 3 Est. Patient 15:41:20 SENIOR CONTROLS ANALYST Yolande Lindsay MD [facility]-97348 Level 3 Est. Patient 13:20:02 SENIOR CONTROLS ANALYST Yolande Lindsay MD [facility] CPT-31613 Level 3 Est. Patient 15:00:38 CDT Jared Og MD [facility]-89905 Level 3 Est. Patient 10:22:32 CDT Yolande Lindsay MD [facility]-40644 Level 3 Est. Patient 17:12:58 CDT Yolande Lindsay MD [facility]-38891 Level 4 Est. Patient 13:30:58 CDT Yolande Lindsay MD [facility]-78069 Level 4 New Patient 09:02:42 CDT Jared Og MD [facility]-25841 Level 3 Est. Patient 08:19:07 CDT Yolande Lindsay MD [facility]-36658 Level 3 Est. Patient 12:00:13 SENIOR CONTROLS ANALYST Gab Padron MD [facility]-98338 Level 3 Est. Patient 16:15:23 SENIOR CONTROLS ANALYST Yolande Lindsay MD PhD [facility]-89938 Level 2 Est. Patient 19:47:15 CDT Yolande Lindsay MD [facility]-95152 Level 3 Est. Patient 21:38:31 CDT Yolande Lindsay MD [facility]-70932 Level 3 Est. Patient 10:25:12 CDT Adiel PERAZA [facility] CPT-80752 Level 4 Est. Patient 10:51:58 CDT Yolande Lindsay MD [facility]-18879 Level 3 Est. Patient 14:04:55 SENIOR CONTROLS ANALYST Rodrigo Sarah [facility]-12299 Level 3 Est. Patient 10:46:35 SENIOR CONTROLS ANALYST Rodrigo Sarah [facility]-07376 Level 3 Est. Patient 14:24:37 SENIOR CONTROLS ANALYST Yolande Lindsay MD PhD [facility]-78675 Level 3 Est. Patient 17:41:58 SENIOR CONTROLS ANALYST Yolande Lindsay MD [facility]-99412 Level 2 Est. Patient 22:01:41 SENIOR CONTROLS ANALYST Rodrigo Sarah [facility]-85598 Level 2 Est. Patient 22:01:11 SENIOR CONTROLS ANALYST Rodrigo Sarah [facility] CPT-91815 Level 3 Est. Patient 10:12:29 SENIOR CONTROLS ANALYST Rodrigo Sarah [facility] CPT-61479 Level 3 Est. Patient 11:05:44 CDT Alexis Ordaz MD [facility] CPT-51665 Level 3 Est. Patient 14:57:20 CDT Yolande Lindsay MD [facility] CPT-44784 Level 3 Est. Patient 14:40:57 CDT Yolande Lindsay MD [facility] CPT-56126 Level 3 Est. Patient 20:55:40 CDT Yolande Lindsay MD [facility] CPT-28885 Level 3 Est. Patient 12:42:38 SENIOR CONTROLS ANALYST Yolande Lindsay MD [facility]-36775 Level 3 Est. Patient 11:54:49 SENIOR CONTROLS ANALYST Des Hines MD [facility] CPT-46662 Level 3 Est. Patient 17:06:38 CDT Dewayne PERAZA [facility] Procedures Code Procedure Name Date Entry Date Standard Description CPT-29329 LS spine comp w obliq 13:28:00 SENIOR CONTROLS ANALYST CPT-J1040 Depo Medrol 80 mg (Methyl Prednisolone Acetate) 10:51: 28 SENIOR CONTROLS ANALYST CPT-J1100 Decadron 8mg (Dexamethasone) 10:51:28 SENIOR CONTROLS ANALYST CPT-19042 Abx/Therapy Injection 10:51:28 SENIOR CONTROLS ANALYST CPT-J1100 Decadron 8mg (Dexamethasone) 21:02:30 SENIOR CONTROLS ANALYST CPT-J1040 Depo Medrol 80 mg (Methyl Prednisolone Acetate) 21:02: 30 SENIOR CONTROLS ANALYST [id number] Event Monitor - Transmission 09:12:32 CDT 08/06 [id number] Event Monitor - MC review and interp 09:12:32 CDT [id number] Event Monitor - MC recording 09:12:32 CDT CPT-25294 EKG Trac and Interp 16:50:22 CDT CPT-J1030 Depo Medrol 40 mg (Methyl Prednisolone Acetate) 17:05: 54 CDT CPT-J1100 Decadron 4mg (Dexamethasone) 17:05:54 CDT CPT-23196 Abx/Therapy Injection 17:05:54 CDT CPT-J1100 Decadron 4mg (Dexamethasone) 16:55:28 CDT CPT-J1030 Depo Medrol 40 mg (Methyl Prednisolone Acetate) 16:55: 28 CDT CPT-58718 Ankle Complete - Min 3V 15:58:50 CDT CPT-15292 Knee 3V 15:58:50 CDT CPT-67666 Hip comp min 2V 15:58:50 CDT CPT-J2270 Morphine Sulfate 10 mg 14:25:44 SENIOR CONTROLS ANALYST CPT-J2550 Phenergan 12.5 mg (Promethazine) 14:25:44 SENIOR CONTROLS ANALYST CPT-84634 Abx/Therapy Injection 14:25:44 SENIOR CONTROLS ANALYST CPT-J2550 Phenergan 12.5 mg (Promethazine) 14:08:03 SENIOR CONTROLS ANALYST CPT-J2270 Morphine Sulfate 10 mg 14:08:03 SENIOR CONTROLS ANALYST CPT-39194 Bladder Scan 15:00:38 CDT CPT-TCMM Transitional Care Mgmt-Moderate 09:52:22 CDT CPT-J1030 Depo Medrol 40 mg (Methyl Prednisolone Acetate) 10:55: 18 CDT CPT-J1100 Decadron 4mg (Dexamethasone) 10:55:18 CDT CPT-46786 Abx/Therapy Injection 10:55:18 CDT CPT-J1030 Depo Medrol 40 mg (Methyl Prednisolone Acetate) 10:22: 32 CDT CPT-J1100 Decadron 4mg (Dexamethasone) 10:22:32 CDT CPT-49280 Postop F/U Visit 14:37:13 CDT CPT-58796 Ankle Complete - Min 3V 17:11:58 CDT CPT-84939 Foot comp min 3V 17:11:58 CDT CPT-24408 Bladder Scan 09:56:58 CDT CPT-71399 Postop F/U Visit 09:56:58 CDT CPT-75608 Cystoscopy 09:02:42 CDT CPT-47347 Bladder Scan 09:02:42 CDT CPT-55649 Abd single AP View 16:00:35 CDT CPT-04532 Administration single or combination vaccine inc oral 10 :15:43 CDT CPT-75957 Influenza split virus > age 3 10:15:43 CDT CPT-46558 Nail Avulsion 09:24:57 CDT CPT-OV Office Visit 11:15:41 CDT CPT-66067 Abx/Therapy Injection 10:51:30 CDT CPT-J3301 Kenalog 40 mg (Triamcinolone Acetonide) 10:25:12 CDT CPT-J1100 Decadron 4mg (Dexamethasone) 10:25:12 CDT CPT-76159 Anoscopy diagnostic 10:36:12 CDT CPT-OV Office Visit 15:34:31 CDT CPT-09740 Abx/Therapy Injection 08:21:15 SENIOR CONTROLS ANALYST CPT-J1885 Toradol 60 mg (Ketorolac) 10:46:35 SENIOR CONTROLS ANALYST CPT-OV Office Visit 19:51:16 SENIOR CONTROLS ANALYST CPT-90330 Spec Collection and Handling Fee 14:34:18 SENIOR CONTROLS ANALYST CPT-PV Prev. Care Visit 14:19:18 SENIOR CONTROLS ANALYST CPT-39237 Postop F/U Visit 14:47:51 SENIOR CONTROLS ANALYST CPT-70227 Postop F/U Visit 15:15:14 SENIOR CONTROLS ANALYST CPT-86356 Postop F/U Visit 14:41:43 CDT CPT-27897 Postop F/U Visit 15:47:46 CDT CPT-OV Office Visit 15:27:23 CDT CPT-OV Office Visit 17:20:34 CDT CPT-18528 Abx/Therapy Injection 15:05:57 CDT CPT-J1100 Decadron 8mg (Dexamethasone) 14:44:57 CDT CPT-J1040 Depo Medrol 80 mg (Methyl Prednisolone Acetate) 14:44: 57 CDT CPT-JTINJ Joint Injection 10:17:37 CDT CPT-87579 Administration 2+ single or combination vaccines inc oral 13:01:46 SENIOR CONTROLS ANALYST CPT-63349 Administration single or combination vaccine inc oral 13 :01:46 SENIOR CONTROLS ANALYST CPT-06541 Pneumovax 13:01:46 SENIOR CONTROLS ANALYST CPT-74097 Influenza split virus > age 3 13:01:46 SENIOR CONTROLS ANALYST CPT-58493 Administration single or combination vaccine inc oral 08 :56:49 CDT CPT-94134 Tdap 08:56:49 CDT
--- OUTSIDE RECORDS SUMMARY | 2017-03-21 21:00 | XMS REPORT | Clinical Summary ---
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 Jillina Frazellilian PERSONAL BANKING ASSISTANT 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 Anemia 285.9 Active Gab Padron MD Anemia, unspecified Conjunctivitis 372.30 Active Jillnacho Sarah APRN Conjunctivitis, unspecified Sinusitis 473.9 Active Silvestrellina Frazell PERSONAL BANKING ASSISTANT Unspecified sinusitis (chronic) Nonspecific syndrome suggestive of viral illness 079.99 Active Jillina iSml PERSONAL BANKING ASSISTANT Unspecified viral infection Laryngitis 464.00 Active Jillina Farshadzell PERSONAL BANKING ASSISTANT Acute laryngitis without mention of obstruction Abdominal [...] Flank pain, left 789.09 Active Jillina Siml PERSONAL BANKING ASSISTANT Abdominal pain, other specified site; multiple sites Abdominal pain, generalized 789.07 Active Jillina Siml PERSONAL BANKING ASSISTANT Abdominal pain, generalized Back pain, thoracic region, left 724.1 Active Jillina Farshadzell PERSONAL BANKING ASSISTANT Pain in thoracic spine FOOT PAIN, RIGHT [...] TBDP 1 po q6hr PRN Nausea ONDANSETRON 02587792339 Active Jillina Frazell PERSONAL BANKING ASSISTANT Active IBUPROFEN 600 MG TAB 1 tablet by mouth every 6 hours for 7 days, then 1 tablet every 6 hours as needed. Take with food IBUPROFEN 83066545334 Active Jillina Frazell PERSONAL BANKING ASSISTANT Active BACTRIM DS 800-160 MG TAB 1 tab by mouth twice daily TRIMETHOPRIM-SULFAMETHOXAZOLE 61926273772 No Longer Active Gab Padron MD Active ADVAIR DISKUS 250-50 MCG/DOSE AEPB 1 puff BID FLUTICASONE- SALMETEROL 95973267977 Active Jillina Frazell PERSONAL BANKING ASSISTANT Active LEVOTHYROXINE SODIUM 75 MCG TABS Take 1 tab daily LEVOTHYROXINE SODIUM 32095678257 No Longer Active Mariana FLEMING Active SYNTHROID 88 MCG ORAL TABS Take one by mouth daily LEVOTHYROXINE SODIUM 68068254577 Active Mariana FLEMING Active CHERATUSSIN AC 100-10 MG/5ML SYRP 1 tsp by mouth every 4 hours as needed for cough GUAIFENESIN-CODEINE 59173638532 No Longer Active Gab Padron MD Active POLYTRIM 84065-6.1 UNIT/ML-% SOLN 1 gtt to affected eye q3h x 7 days POLYMYXIN B-TRIMETHOPRIM 62256901340 No Longer Active Gab Padron MD Active FLUTICASONE PROPIONATE 50 MCG/ACT SUSP 1 to 2 sprays each nostril daily 04/21 FLUTICASONE PROPIONATE 31471347826 No Longer Active Gab Padron MD Active TRILEPTAL 600 MG TABS Take one 1 tablet in Am and 1 tablet at night OXCARBAZEPINE 74990048012 Active Gab Padron MD Active CEFDINIR 300 MG CAPS 1 po BID x 10 days CEFDINIR 26769662974 No Longer Active Rodrigo Sarah APRN Active CEFTIN 500 MG TAB 1 twice a day CEFUROXIME AXETIL 82027815964 No Longer Active Gab Padron MD Active AZITHROMYCIN 250 MG TABS 2 po qd x 1 day, then 1 po qd x 4 days AZITHROMYCIN 03130799079 No Longer Active Rodrigo Sarah APRN Active CLARITIN 10 MG TAB 1 tablet by mouth daily as needed for allergies LORATADINE 91216884083 Active Rodrigo Sarah APRN Active OXYCODONE HCL 5 MG ORAL CAPS 1 TAB PO Q HS OXYCODONE HCL 38647004105 No Longer Active Rodrigo Sarah APRN Active NIASPAN 500 MG ORAL CR-TABS 1 pill nightly x 1 week, then 2 pills nightly x 1 week, then 3 pills nightly x 1 week, then 4 pills nightly NIACIN (ANTIHYPERLIPIDEMIC) 83461539268 No Longer Active Rodrigo Sarah APRN Active NIACIN 500 MG TABS 1 pill by mouth nightly x 1 week, then 2 pills x 1 week, then 3 pills x 1 week, then 4 pills nightly - take after evening meal, with applesauce or an apple NIACIN 46635292150 No Longer Active Yolande Lindsay MD PhD Active FISH OIL 1000 MG CAPS 3 pills daily OMEGA-3 FATTY ACIDS 12630356179 Active Yolande Lindsay MD PhD Active TRIAMCINOLONE ACETONIDE 0.1 % CREA apply bid sparingly to rash TRIAMCINOLONE ACETONIDE 82248038938 Active Yolande Lindsay MD PhD Active FUROSEMIDE 20 MG TAB 1 tablet by mouth daily FUROSEMIDE 82170432990 Active Tisha Lambert PERSONAL BANKING ASSISTANT Active LISINOPRIL 20 MG ORAL TABS 1 tab by mouth daily LISINOPRIL 53567108988 Active Gab Padron MD Active FUROSEMIDE 20 MG TABS 1 pill by mouth daily, for edema FUROSEMIDE 65224362082 No Longer Active Yolande Lindsay MD PhD Active ATORVASTATIN CALCIUM 10 MG TABS 1 pill by mouth daily, for cholesterol 09/06 ATORVASTATIN CALCIUM 23168120068 Active Gab Padron MD Active CALCIUM 600+D PLUS MINERALS 600-400 MG-UNIT ORAL CHEW 1 tab by mouth daily CALCIUM CARBONATE-VIT D-MIN 88555028343 No Longer Active Yolande Lindsay MD PhD Active CYCLOBENZAPRINE HCL 10 MG TABS 1 tablet by mouth three times daily as needed for muscle spasm/pain CYCLOBENZAPRINE HCL 35014887710 Active Yolande Lindsay MD PhD Active ONDANSETRON 4 MG TBDP 1 q4h PRN nausea ONDANSETRON 09677085131 Active Yolande Lindsay MD PhD Active ADULT ASPIRIN EC LOW STRENGTH 81 MG TBEC Take 1 tablet by mouth daily 2014 ASPIRIN 92906008400 No Longer Active Yolande Lindsay MD PhD Active ZOFRAN ODT 4 MG TBDP 1 pill dissolved by mouth every 4 hours if needed for nausea ONDANSETRON 19287179078 No Longer Active Yolande Lindsay MD PhD Active CEFTIN 500 MG TAB 1 twice a day CEFUROXIME AXETIL 30576673452 No Longer Active Yolande Lindsay MD PhD Active ALBUTEROL SULFATE 0.083 % NEBU SOLN one vial per nebulizer every 4-6 hours as needed ALBUTEROL SULFATE 07630868683 No Longer Active Alexis Ordaz MD Active DOXYCYCLINE HYCLATE 100 MG CAP 1 cap by mouth twice daily DOXYCYCLINE HYCLATE 17045756916 No Longer Active Yolande Lindsay MD PhD Active CYCLOBENZAPRINE HCL 10 MG TABS 1/2 - 1 tab by mouth three times daily if needed for spasms/pain CYCLOBENZAPRINE HCL 00178857978 No Longer Active Yolande Lindsay MD PhD Active AZITHROMYCIN 250 MG TABS 2 pills on day 1, then 1 pill daily x 4 days AZITHROMYCIN 51171938465 No Longer Active Yolande Lindsay MD PhD Active XOPENEX 1.25 MG/3ML NEBU 1 neb every 4 hours if needed for cough/congestion LEVALBUTEROL HCL 97440996155 No Longer Active Yolande Lindsay MD PhD Active DOXYCYCLINE HYCLATE 100 MG TAB 1 tab twice a day for 14 days 2013 DOXYCYCLINE HYCLATE 41702954111 No Longer Active Yolande Lindsay MD PhD Active PREVACID 30 MG CPDR Take 1 tablet by mouth daily-PRN LANSOPRAZOLE 66544506315 No Longer Active Yolande Lindsay MD PhD Active PA VITAMIN D-3 2000 UNIT CAPS 1 CAP PO DAILY CHOLECALCIFEROL 81287753864 No Longer Active Yolande Lindsay MD PhD Active CEFDINIR 300 MG CAPS by mouth twice a day CEFDINIR 17587540175 No Longer Active Gab Padron MD Active TOPAMAX 50 MG TABS 1 PO twice daily TOPIRAMATE 99938170420 Active Yolande Lindsay MD PhD Active AZITHROMYCIN 250 MG TABS 2 po qd x 1 day, then 1 po qd x 4 days AZITHROMYCIN 68981258897 No Longer Active Yolande Lindsay MD PhD Active DICLOFENAC SODIUM 75 MG TBEC 1 tablet by q 12 hours PRN headaches DICLOFENAC SODIUM 59095654696 No Longer Active Yolande Lindsay MD PhD Active FLONASE 50 MCG/ACT SUSP 1 spray each nostril am and hs FLUTICASONE PROPIONATE 33014500175 No Longer Active Todd Callaway MD Active ANUSOL-HC 25 MG SUPPOSITORY 1 rectally twice a day as needed for hemorrhoids HYDROCORTISONE JAYDEN (RECTAL) 02968255596 No Longer Active Yolande Lindsay MD PhD Active ANUSOL-HC 25 MG SUPPOSITORY 1 suppository rectally each evening as needed for anal fissure HYDROCORTISONE JAYDEN (RECTAL) 53222155420 No Longer Active LONNIE Iglesias Active VALIUM 5 MG TAB 1 po 30 minutes prior to your MRI DIAZEPAM 79824263154 No Longer Active LONNIE Iglesias Active METHOCARBAMOL 750 MG TABS 1 PO QID PRN METHOCARBAMOL 80531437595 No Longer Active Daphne Wetzel PERSONAL BANKING ASSISTANT Active NITROSTAT 0.4 MG SUBL as directed NITROGLYCERIN 39741762328 No Longer Active Rodrigo Sarah APRN Active ROBAXIN-750 750 MG TABS 2 four times a day for 3 days as needed for muscle spasm, then 1 four times a day as needed METHOCARBAMOL 62214402599 No Longer Active Rodrigo Sarah APRN Active HYDROCODONE-ACETAMINOPHEN 5-325 MG TABS 1 q 4-6 hrs prn HYDROCODONE-ACETAMINOPHEN 08539003596 No Longer Active Silvestrellnacho Sarah APRN Active VERAPAMIL HCL CR 180 MG CR-TABS TAKE 1 TAB DAILY VERAPAMIL HCL 91281858359 No Longer Active Yolande Lindsay MD PhD Active BACTRIM DS 800-160 MG TAB 1 tab by mouth twice daily TRIMETHOPRIM-SULFAMETHOXAZOLE 64171155214 No Longer Active Yolande Lindsay MD PhD Active NEXIUM 40 MG PACK 1 by mouth daily ESOMEPRAZOLE MAGNESIUM 30090706856 No Longer Active Des Hines MD Active EPIPEN 2-CHARLETTE 0.3 MG/0.3ML OMARI as need for allergic reaction EPINEPHRINE 05833987374 Active Yolande Lindsay MD PhD Active NEXIUM 40 MG CPDR 1 PO Q D DAY ESOMEPRAZOLE MAGNESIUM 06594842239 No Longer Active Sadia Perry RN Active NEXIUM 40 MG PACK 1 by mouth daily NEXIUM 40 MG PACK ESOMEPRAZOLE MAGNESIUM Inactive VERAPAMIL HCL CR 180 MG CR-TABS TAKE 1 TAB DAILY VERAPAMIL HCL CR 180 MG CR-TABS VERAPAMIL HCL Inactive HYDROCODONE-ACETAMINOPHEN 5-325 MG TABS 1 q 4-6 hrs prn HYDROCODONE-ACETAMINOPHEN 5-325 MG TABS 065164 HYDROCODONE-ACETAMINOPHEN Inactive ROBAXIN-750 750 MG TABS 2 four times a day for 3 days as needed for muscle spasm, then 1 four times a day as needed ROBAXIN-750 750 MG TABS 996242 METHOCARBAMOL Inactive NITROSTAT 0.4 MG SUBL as directed NITROSTAT 0.4 MG SUBL NITROGLYCERIN Inactive METHOCARBAMOL 750 MG TABS 1 PO QID PRN METHOCARBAMOL 750 MG TABS 070296 METHOCARBAMOL Inactive VALIUM 5 MG TAB 1 po 30 minutes prior to your MRI VALIUM 5 MG TAB 359344 DIAZEPAM Inactive ANUSOL-HC 25 MG SUPPOSITORY 1 suppository rectally each evening as needed for anal fissure ANUSOL-HC 25 MG SUPPOSITORY 2685540 HYDROCORTISONE JAYDEN (RECTAL) Inactive ANUSOL-HC 25 MG SUPPOSITORY 1 rectally twice a day as needed for hemorrhoids ANUSOL-HC 25 MG SUPPOSITORY 6214967 HYDROCORTISONE JAYDEN (RECTAL) Inactive FLONASE 50 MCG/ACT SUSP 1 spray each nostril am and hs FLONASE 50 MCG/ACT SUSP FLUTICASONE PROPIONATE Inactive DICLOFENAC SODIUM 75 MG TBEC 1 tablet by q 12 hours PRN headaches DICLOFENAC SODIUM 75 MG TBEC 029768 DICLOFENAC SODIUM Inactive PA VITAMIN D-3 2000 UNIT CAPS 1 CAP PO DAILY PA VITAMIN D-3 2000 UNIT CAPS CHOLECALCIFEROL Inactive PREVACID 30 MG CPDR Take 1 tablet by mouth daily-PRN PREVACID 30 MG CPDR 707878 LANSOPRAZOLE Inactive DOXYCYCLINE HYCLATE 100 MG TAB 1 tab twice a day for 14 days 2013 DOXYCYCLINE HYCLATE 100 MG TAB 1259758 DOXYCYCLINE HYCLATE Inactive XOPENEX 1.25 MG/3ML NEBU 1 neb every 4 hours if needed for cough/congestion XOPENEX 1.25 MG/3ML NEBU 294146 LEVALBUTEROL HCL Inactive CYCLOBENZAPRINE HCL 10 MG TABS 1/2 - 1 tab by mouth three times daily if needed for spasms/pain CYCLOBENZAPRINE HCL 10 MG TABS 494818 CYCLOBENZAPRINE HCL Inactive ALBUTEROL SULFATE 0.083 % NEBU SOLN one vial per nebulizer every 4-6 hours as needed ALBUTEROL SULFATE 0.083 % NEBU SOLN 678129 ALBUTEROL SULFATE Inactive CEFTIN 500 MG TAB 1 twice a day CEFTIN 500 MG TAB 009612 CEFUROXIME AXETIL Inactive ZOFRAN ODT 4 MG TBDP 1 pill dissolved by mouth every 4 hours if needed for nausea ZOFRAN ODT 4 MG TBDP 035243 ONDANSETRON Inactive ADULT ASPIRIN EC LOW STRENGTH 81 MG TBEC Take 1 tablet by mouth daily 2014 ADULT ASPIRIN EC LOW STRENGTH 81 MG TBEC 840516 ASPIRIN Inactive CALCIUM 600+D PLUS MINERALS 600-400 [...] or an apple NIACIN 500 MG TABS 462271 NIACIN Inactive NIASPAN 500 MG ORAL CR-TABS 1 pill nightly x 1 week, then 2 pills nightly x 1 week, then 3 pills nightly x 1 week, then 4 pills nightly NIASPAN 500 MG ORAL CR-TABS NIACIN (ANTIHYPERLIPIDEMIC) Inactive OXYCODONE HCL 5 MG ORAL CAPS 1 TAB PO Q HS OXYCODONE HCL 5 MG ORAL CAPS 1335754 OXYCODONE HCL Inactive FLUTICASONE PROPIONATE 50 MCG/ACT SUSP 1 to 2 sprays each nostril daily 04/21 FLUTICASONE PROPIONATE 50 MCG/ACT SUSP 400755 FLUTICASONE PROPIONATE Inactive POLYTRIM 10886-0.1 UNIT/ML-% SOLN 1 gtt to affected eye q3h x 7 days POLYTRIM 79241-9.1 UNIT/ML-% SOLN 209222 POLYMYXIN B- TRIMETHOPRIM Inactive CHERATUSSIN AC 100-10 MG/5ML SYRP 1 tsp by mouth every 4 hours as needed for cough CHERATUSSIN AC 100-10 MG/5ML SYRP 454018 GUAIFENESIN-CODEINE Inactive LEVOTHYROXINE SODIUM 75 MCG TABS Take 1 tab daily LEVOTHYROXINE SODIUM 75 MCG TABS 457308 LEVOTHYROXINE SODIUM Inactive BACTRIM DS 800-160 MG TAB 1 tab by mouth twice daily BACTRIM DS 800-160 MG TAB 010648 TRIMETHOPRIM-SULFAMETHOXAZOLE Inactive AZITHROMYCIN 250 MG TABS 2 po qd x 1 day, then 1 po qd x 4 days AZITHROMYCIN 250 MG TABS 8928199 AZITHROMYCIN Inactive CEFDINIR 300 MG CAPS by mouth twice a day CEFDINIR 300 MG CAPS 663191 CEFDINIR Inactive AZITHROMYCIN 250 MG TABS 2 pills on day 1, then 1 pill daily x 4 days AZITHROMYCIN 250 MG TABS 4665478 AZITHROMYCIN Inactive DOXYCYCLINE HYCLATE 100 MG CAP 1 cap by mouth twice daily DOXYCYCLINE HYCLATE 100 MG CAP 5877949 DOXYCYCLINE HYCLATE Inactive FUROSEMIDE 20 MG TABS 1 pill by mouth daily, for edema FUROSEMIDE 20 MG TABS 035862 FUROSEMIDE Inactive AZITHROMYCIN 250 MG TABS 2 po qd x 1 day, then 1 po qd x 4 days AZITHROMYCIN 250 MG TABS 7469506 AZITHROMYCIN Inactive CEFTIN 500 MG TAB 1 twice a day CEFTIN 500 MG TAB 630298 CEFUROXIME AXETIL Inactive CEFDINIR 300 MG CAPS 1 po BID x 10 days CEFDINIR 300 MG CAPS 645395 CEFDINIR Inactive BACTRIM DS 800-160 MG TAB 1 tab by mouth twice daily BACTRIM DS 800-160 MG TAB 769817 TRIMETHOPRIM-SULFAMETHOXAZOLE Inactive Immunizations Vaccine Administration Date Value Standard Description Seasonal influenza vaccine, injectable, containing preservative, for > 3 years old (Afluria, FluLaval, Fluzone, Fluvirin, Fluarix, Agriflu(>=18 yo)) Fluzone (>3 yrs.) [FRL299] Influenza, seasonal, injectable influenza immunization (Flu Vax) has been administered Influenza - Unspecified Formulation [CVX88] influenza virus vaccine, unspecified formulation Seasonal influenza vaccine, injectable, containing preservative, for > 3 years old (Afluria, FluLaval, Fluzone, Fluvirin, Fluarix, Agriflu(>=18 yo)) Fluzone (>3 yrs.) [GAR650] Influenza, seasonal, injectable pneumococcal immunization administered Pneumovax 23 [CVX33] pneumococcal polysaccharide vaccine, 23 valent dT (Diphtheria and Tetanus) booster given given Td(adult) unspecified formulation Boostrix (Tetanus toxoid, reduced diphtheria toxoid and acellular pertussis vaccine, adsorbed), booster Boostrix [BQS011] tetanus toxoid, reduced diphtheria toxoid, and acellular [...] pressure, diastolic - 8462-4 69 mm[Hg] BP [place]ledon blood pressure, systolic - 8480-6 110 mm[Hg] [...] Panel - Chemistry sodium, serum 142 mmol/L 249-337 5507/06/30 potassium, serum 4.4 mmol/L 3.5-5.2 chloride, serum 108 mmol/L 98-107 carbon dioxide, venous blood 25.1 mmol/L 21.0-32.0 blood glucose 82 mg/dL 65-110 calcium, serum 9.1 mg/dL 8.5-10.1 urea nitrogen, blood 18 mg/dL 7-18 creatinine, serum 1.31 mg/dL 0.55-1.30 Lab Report: [facility] Advanced Lipid and Inlammation Panel /55891 - Chemistry cholesterol, serum 148 mg/dL 212-696 0696/09/02 HDL cholesterol, serum 55 mg/dL > OR=46 [...] (L) - Chemistry sodium, serum 145 mmol/L 900-272 5819/09/02 potassium, serum 4.6 mmol/L 3.5-5.2 chloride, serum [...] Rate - Chemistry sodium, serum 139 mmol/L 154-583 1618/03/24 carbon dioxide, venous blood 22.4 mmol/L 21.0-32.0 [...] ... - Chemistry sodium, serum 143 mmol/L 881-502 8101/05/02 carbon dioxide, venous blood 25.6 mmol/L 21.0-32.0 [...] Negative mg/dL Negative sodium, serum 142 mmol/L 462-273 8234/07/18 carbon dioxide, venous blood 27.8 mmol/L 21.0-32.0 [...] mg/dL Encounters Code Encounter Date Provider Facility CPT-21087 Level 3 Est. Patient 10:29:41 CDT Rodrigo Sarah [facility] CPT-29614 Level 4 Est. Patient 17:51:05 CDT Gab Padron MD [facility] CPT-85142 Level 3 Est. Patient 14:18:08 CDT Gab Padron MD [facility] CPT-58810 Level 4 Est. Patient 10:18:54 CDT Gab Padron MD [facility] CPT-20070 Level 3 Est. Patient 11:30:07 CDT Rodrigo Sarah [facility] CPT-24623 Level 4 Est. Patient 21:02:30 RADIO DISC JOCKEY Gab Padron MD [facility] CPT-90474 Level 3 Est. Patient 11:02:19 RADIO DISC JOCKEY Gab Padron MD [facility] CPT-15763 Level 4 Est. Patient 22:24:31 RADIO DISC JOCKEY Gab Padron MD [facility] CPT-93197 Level 3 Est. Patient 18:33:46 RADIO DISC JOCKEY Gab Padron MD [facility] CPT-34821 Level 3 Est. Patient 16:19:11 CDT Yolande Lindsay MD, PhD [facility] CPT-39881 Level 3 Est. Patient 18:59:14 CDT Yolande Lindsay MD [facility] CPT-81766 Level 4 Est. Patient 21:29:26 CDT Yolande Lindsay MD [facility]-22921 Level 3 Est. Patient 07:37:45 CDT Yolande Lindsay MD [facility]-84656 Level 3 Est. Patient 17:03:46 CDT Yolande Lindsay MD [facility]-47271 Level 4 Est. Patient 20:02:13 RADIO DISC JOCKEY Yolande Lindsay MD [facility]-30046 Level 3 Est. Patient 16:02:07 RADIO DISC JOCKEY Alexis Ordaz MD [facility]-01248 Level 3 Est. Patient 12:41:24 RADIO DISC JOCKEY Yolande Lindsay MD [facility]-55072 Level 3 Est. Patient 15:41:20 RADIO DISC JOCKEY Yolande Lindsay MD [facility]-49973 Level 3 Est. Patient 13:20:02 RADIO DISC JOCKEY Yolande Lindsay MD [facility]-85215 Level 3 Est. Patient 15:00:38 CDT Jared Og MD [facility]-49908 Level 3 Est. Patient 10:22:32 CDT Yolande Lindsay MD [facility] CPT-45663 Level 3 Est. Patient 17:12:58 CDT Yolande Lindsay MD [facility]-71269 Level 4 Est. Patient 13:30:58 CDT Yolande Lindsay MD [facility] CPT-24195 Level 4 New Patient 09:02:42 CDT Jared Og MD [facility]-73644 Level 3 Est. Patient 08:19:07 CDT Yolande Lindsay MD [facility]-85100 Level 3 Est. Patient 12:00:13 RADIO DISC JOCKEY Gab Padron MD [facility]-77558 Level 3 Est. Patient 16:15:23 RADIO DISC JOCKEY Yolande Lindsay MD [facility]67285 Level 2 Est. Patient 19:47:15 CDT Yolande Lindsay MD [facility]-24681 Level 3 Est. Patient 21:38:31 CDT Yolande Lindsay MD [facility]-74561 Level 3 Est. Patient 10:25:12 CDT Adiel PERAZA [facility]-99887 Level 4 Est. Patient 10:51:58 CDT Yolande Lindsay MD [facility]-11689 Level 3 Est. Patient 14:04:55 RADIO DISC JOCKEY Rodrigo Sarah [facility]-00489 Level 3 Est. Patient 10:46:35 RADIO DISC JOCKEY Rodrigo Sarah [facility]-86325 Level 3 Est. Patient 14:24:37 RADIO DISC JOCKEY Yolande Lindsay MD [facility]-23363 Level 3 Est. Patient 17:41:58 RADIO DISC JOCKEY Yolande Lindsay MD [facility]-85176 Level 2 Est. Patient 22:01:41 RADIO DISC JOCKEY Rodrigo Sarah [facility]-40225 Level 2 Est. Patient 22:01:11 RADIO DISC JOCKEY Rodrigo Sarah [facility]-97944 Level 3 Est. Patient 10:12:29 RADIO DISC JOCKEY Rodrigo Sarah [facility]-98486 Level 3 Est. Patient 11:05:44 CDT Alexis rOdaz MD [facility] CPT-15529 Level 3 Est. Patient 14:57:20 CDT Yolande Lindsay MD [facility] CPT-60542 Level 3 Est. Patient 14:40:57 CDT Yolande Lindsay MD [facility] CPT-68241 Level 3 Est. Patient 20:55:40 CDT Yolande Lindsay MD [facility] CPT-39644 Level 3 Est. Patient 12:42:38 RADIO DISC JOCKEY Yolande Lindsay MD [facility] CPT-17496 Level 3 Est. Patient 11:54:49 RADIO DISC JOCKEY Des Hines MD [facility] CPT-28416 Level 3 Est. Patient 17:06:38 CDT Dewayne PERAZA [facility] Procedures Code Procedure Name Date Entry Date Standard Description CPT-45046 Chest 2V Frontal and Lat - XRAY USE ONLY 10:48:51 CDT CPT-06831 LS spine comp w obliq 13:28:00 RADIO DISC JOCKEY CPT-J1040 Depo Medrol 80 mg (Methyl Prednisolone Acetate) 10:51: 28 RADIO DISC JOCKEY CPT-J1100 Decadron 8mg (Dexamethasone) 10:51:28 RADIO DISC JOCKEY CPT-45109 Abx/Therapy Injection 10:51:28 RADIO DISC JOCKEY CPT-J1100 Decadron 8mg (Dexamethasone) 21:02:30 RADIO DISC JOCKEY CPT-J1040 Depo Medrol 80 mg (Methyl Prednisolone Acetate) 21:02: 30 RADIO DISC JOCKEY [id number] Event Monitor - MC Transmission 09:12:32 CDT 08/06 [id number] Event Monitor - MC review and interp 09:12:32 CDT [id number] Event Monitor - MC recording 09:12:32 CDT CPT-57462 EKG Trac and Interp 16:50:22 CDT CPT-J1030 Depo Medrol 40 mg (Methyl Prednisolone Acetate) 17:05: 54 CDT CPT-J1100 Decadron 4mg (Dexamethasone) 17:05:54 CDT CPT-21084 Abx/Therapy Injection 17:05:54 CDT CPT-J1100 Decadron 4mg (Dexamethasone) 16:55:28 CDT CPT-J1030 Depo Medrol 40 mg (Methyl Prednisolone Acetate) 16:55: 28 CDT CPT-65473 Ankle Complete - Min 3V 15:58:50 CDT CPT-96875 Knee 3V 15:58:50 CDT CPT-81536 Hip comp min 2V 15:58:50 CDT CPT-J2270 Morphine Sulfate 10 mg 14:25:44 RADIO DISC JOCKEY CPT-J2550 Phenergan 12.5 mg (Promethazine) 14:25:44 RADIO DISC JOCKEY CPT-02868 Abx/Therapy Injection 14:25:44 RADIO DISC JOCKEY CPT-J2550 Phenergan 12.5 mg (Promethazine) 14:08:03 RADIO DISC JOCKEY CPT-J2270 Morphine Sulfate 10 mg 14:08:03 RADIO DISC JOCKEY CPT-49657 Bladder Scan 15:00:38 CDT CPT-TCMM Transitional Care Mgmt-Moderate 09:52:22 CDT CPT-J1030 Depo Medrol 40 mg (Methyl Prednisolone Acetate) 10:55: 18 CDT CPT-J1100 Decadron 4mg (Dexamethasone) 10:55:18 CDT CPT-96955 Abx/Therapy Injection 10:55:18 CDT CPT-J1030 Depo Medrol 40 mg (Methyl Prednisolone Acetate) 10:22: 32 CDT CPT-J1100 Decadron 4mg (Dexamethasone) 10:22:32 CDT CPT-52730 Postop F/U Visit 14:37:13 CDT CPT-97343 Ankle Complete - Min 3V 17:11:58 CDT CPT-13238 Foot comp min 3V 17:11:58 CDT CPT-44885 Bladder Scan 09:56:58 CDT CPT-64497 Postop F/U Visit 09:56:58 CDT CPT-72208 Cystoscopy 09:02:42 CDT CPT-43735 Bladder Scan 09:02:42 CDT CPT-02741 Abd single AP View 16:00:35 CDT CPT-74796 Administration single or combination vaccine inc oral 10 :15:43 CDT CPT-38532 Influenza split virus > age 3 10:15:43 CDT CPT-85163 Nail Avulsion 09:24:57 CDT CPT-OV Office Visit 11:15:41 CDT CPT-70559 Abx/Therapy Injection 10:51:30 CDT CPT-J3301 Kenalog 40 mg (Triamcinolone Acetonide) 10:25:12 CDT CPT-J1100 Decadron 4mg (Dexamethasone) 10:25:12 CDT CPT-11110 Anoscopy diagnostic 10:36:12 CDT CPT-OV Office Visit 15:34:31 CDT CPT-10870 Abx/Therapy Injection 08:21:15 RADIO DISC JOCKEY CPT-J1885 Toradol 60 mg (Ketorolac) 10:46:35 RADIO DISC JOCKEY CPT-OV Office Visit 19:51:16 RADIO DISC JOCKEY CPT-19257 Spec Collection and Handling Fee 14:34:18 RADIO DISC JOCKEY CPT-PV Prev. Care Visit 14:19:18 RADIO DISC JOCKEY CPT-04825 Postop F/U Visit 14:47:51 RADIO DISC JOCKEY CPT-36532 Postop F/U Visit 15:15:14 RADIO DISC JOCKEY CPT-24590 Postop F/U Visit 14:41:43 CDT CPT-42693 Postop F/U Visit 15:47:46 CDT CPT-OV Office Visit 15:27:23 CDT CPT-OV Office Visit 17:20:34 CDT CPT-86540 Abx/Therapy Injection 15:05:57 CDT CPT-J1100 Decadron 8mg (Dexamethasone) 14:44:57 CDT CPT-J1040 Depo Medrol 80 mg (Methyl Prednisolone Acetate) 14:44: 57 CDT CPT-JTINJ Joint Injection 10:17:37 CDT CPT-28125 Administration 2+ single or combination vaccines inc oral 13:01:46 RADIO DISC JOCKEY CPT-20351 Administration single or combination vaccine inc oral 13 :01:46 RADIO DISC JOCKEY CPT-26182 Pneumovax 13:01:46 RADIO DISC JOCKEY CPT-34314 Influenza split virus > age 3 13:01:46 RADIO DISC JOCKEY CPT-30887 Administration single or combination vaccine inc oral 08 :56:49 CDT CPT-80351 Tdap 08:56:49 CDT
--- OUTSIDE RECORDS SUMMARY | 2017-03-21 21:02 | XMS REPORT ---
Author Author [facility] Medical Staff Organization [facility] Address [address] [place] [id number] Phone [phone] Care Team Providers [employer] Name Role Phone REGAN HUTSON, EVELYN PP [phone] Summary purpose TRANSITION OF CARE AUTO GENERATION [...] Relevant diagnostic tests and/or laboratory data RESULTS Routine Urinalysis [id number]:15:00 Result Normal Range Units Color YELLOW Clarity Clear Specific [place] 1.010 1.003-1.035 pH 7.0 4.5-8.0 Glucose NEGATIVE Bilirubin NEGATIVE Ketones NEGATIVE Protein NEGATIVE Urobilinogen 0.2 0-0.2 E.U./dL Nitrites NEGATIVE Blood NEGATIVE Leukocytes NEGATIVE WBCs 0-5 RBCs 0-5 Squamous Epithelial 1+ Bacteria Occasional Chemistry :50:00 Result Normal Range Units Sodium 141 134-145 mEq/l Potassium 3.9 3.5-5.1 mEq/l Chloride 107 98-107 mEq/l CO2 25.9 22-28 mEq/l Glucose 95 70-105 mg/dl BUN H 24 7-18 mg/dl Creatinine H 1.35 0.6-1.0 mg/dl Calcium L 8.3 8.4-10.2 mg/dl TP - Total Protein 7.1 6.0-8.3 g/dl Albumin L 3.4 3.5-5 g/dl Bilirubin - Total 0.2 0.1-1.0 mg/dl AST 17 10-42 IU/L ALT 29 12-65 IU/L ALP H 98 25-72 IU/L Osmolality 285.1 280-300 mOsm/L Albumin/Globulin Ratio 0.9 0-8 Anion GAP 8.1 8-16 BUN/Creatinine Ratio 17.8 10-20 Estimated GFR L 41 >=60 mL/min/1.7 Hematology :50:00 Result Normal Range Units WBC 6.3 4.8-10.8 103/uL RBC L 3.8 4.2-5.4 106/uL HGB L 11.1 12.0-16.0 g/dl HCT L 34.1 36.9-47.0 % MCV 90.5 81-99 FL MCH 29.4 27-31 pg MCHC L 32.6 33-37 g/dl RDW 13.7 11.5-15.5 % PLT 170 130-400 103/uL MPV 9.9 7.3-10.4 FL Neutro % 55.3 40-70 % Lymph % 34.3 20-40 % Garden % 9.6 0-10.0 % Eos % 0.2 0-7.0 % Baso % 0.3 0-2 % Neutro # 3.5 1.5-7.5 103/uL Lymph # 2.2 0.9-4.0 103/uL Garden # 0.6 0-0.8 103/uL Eos # 0.0 0-0.6 103/uL Baso # 0.0 0-0.1 103/uL Body Fluid :15:00 Result Normal Range Units pH 7.0 4.5-8.0 Radiology Results [id number]:13:00 Abdomen 2 View PACs Image DATE OF EXAM: Oct 25 2015 RAD [id number]-ABDOMEN 2 VIEW : RADIOLOGY REPORT DATE OF SERVICE: 10/25/2015 HISTORY:Left lower quadrant pain. ABDOMEN - 2 VIEWS 0215 HOURS Moderate stool content is present throughout the colon. The small bowel is unremarkable. There is no free air. Surgical clips are noted in the upper abdomen bilaterally. There has been prior internal fixation in the lower lumbar spine. There are no pathological renal or ureteral calcifications. IMPRESSION:Moderate colonic stool. Postoperative abdominal and spinal changes. MD DEMI Hubbard/kendal 10/25/2015 08:59:00 / 10/25/2015 12:02:17 cc:Dr. Padron This document has been electronically Signed by: On: DATE OF EXAM: Oct 25 2015 RAD 0037-ABDOMEN 2 VIEW : RADIOLOGY REPORT DATE OF SERVICE: 10/25/2015 HISTORY:Left lower quadrant pain. ABDOMEN - 2 VIEWS 0215 HOURS Moderate stool content is present throughout the colon. The small bowel is unremarkable. There is no free air. Surgical clips are noted in the upper abdomen bilaterally. There has been prior internal fixation in the lower lumbar spine. There are no pathological renal or ureteral calcifications. IMPRESSION:Moderate colonic stool. Postoperative abdominal and spinal changes. MD DEMI Hubbard/kendal 10/25/2015 08:59:00 / 10/25/2015 12:02:17 cc:Dr. Padron This document has been electronically Signed by: ARCENIO NINO MD On: Oct 26 20156:13P Result Amended on 2015-10-26 at 18:13:42. Previous status was DE. [id number]:50:00 Result Normal Range Units MPV 9.9 7.3-10.4 FL History of procedures Procedure Code Code Type Description Date Performed Performing Physician 09911 CPT-4 ROUTINE VENIPUNCTURE 10-25-2015 CHRIS GUAMAN 22146 CPT-4 X-RAY EXAM OF ABDOMEN 10-25-2015 CHRIS GUAMAN 45312 CPT-4 COMPREHEN METABOLIC PANEL 10-25-2015 CHRIS GUAMAN 31824 CPT-4 URINALYSIS, AUTO W/SCOPE 10-25-2015 CHRIS GUAMAN 88710 CPT-4 COMPLETE CBC W/AUTO DIFF WBC 10-25-2015 CHRIS GUAMAN J2405 CPT-4 ONDANSETRON HCL INJECTION 10-25-2015 CHRIS GUAMAN J7030 CPT-4 NORMAL SALINE SOLUTION INFUS 10-25-2015 CHRIS GUAMAN 94204 CPT-4 EMERGENCY DEPT VISIT 10-24-2015 CHRIS GUAMAN 24954 CPT-4 EMERGENCY DEPT VISIT 10-24-2015 CHRIS GUAMAN 40123 CPT-4 THER/PROPH/DIAG INJ, IV PUSH 10-24-2015 CHRIS GUAMAN 83246 CPT-4 HYDRATE IV INFUSION, ADD-ON 10-24-2015 CHRIS GUAMAN Functional status Functional Status Finding Observation Time Diet regular [id number]:30 Abdomen Appearance obese :30 Abdomen tender :30 Bajwa no :30 Urination normal :30 Quality sym/unlabored :30 Cough absent :30 Secretions no :30 Airway natural :30 Chest Tube no :30 Oxygen no :00 Temp >100.4 no :30 Temp <96.8 no :30 Chills with rigors no :30 HR > 90bpm no :30 Respirations > 20 no :30 Systolic <90 no :30 headache stiff neck no :30 IV Site Location Left AC :00 IV Type peripheral :00 IV Site Information discontinued :00 IV Site Start Attmpt 1 times :55 IV Site Acosta 20 :00 IV Site Appearance WNL :00 IV Site Color clear :00 IV Site Patent yes :00 Dressing Type occlusive :00 Nursing Note Pt is discharged to home in good condition. Pt has HP hydro in hand along with script in hand et instructions. Pt verbalizied an understanding of follow up appt et to schedule it. IV is discontinued with tip intact. :00 Vital signs Type Value Date Respiration Rate 20breaths per minute :00 Pulse 66beats per minute :00 Oxygen Saturation 100% :00 BP Systolic 113mmHg :00 BP Diastolic 65mmHg :00 Temperature 98.9F :39 Social history Type Value Smoking Status FORMER SMOKER Treatment Plan No treatment plan text is available for this visit. Hospital discharge instructions Dismissal Condition good Disposition on DC home DC Inst/Educ Give yes Med/Side Effects Rev yes PNE Vac 2015 Flu Vac 2014 Tetanus Vac 2012
--- OUTSIDE RECORDS SUMMARY | 2017-03-21 21:02 | XMS REPORT | Clinical Summary ---
Author Author Admin, MARGRET Organization [employer] Address Unknown Phone Unavailable Allergies, Adverse Reactions, Alerts Allergy Name Reaction Description Start Date Severity Status Provider VALENTIN Critical Active Rodrigo Montemayorl RN PHYSICIAN OFFICE CHLORHEXIDINE GLUCONATE tongue and gums swollen Critical Active Hoa Kabaford RMA NORFLEX Rash Critical Active Rowenaina Farshadzell RN PHYSICIAN OFFICE TRAZODONE HCL sees things Critical Active Dewayne [...] of 412 Active Hoa Otto [facility] Old myocardial infarction Pelvic pain 789.09 Active Yolande Lindsay MD PhD Abdominal pain, other specified site; multiple sites Edema 782.3 Active Yolande Lindsay MD PhD Edema Rash 782.1 Active Yolande Lindsay MD PhD Rash and other nonspecific skin eruption Back pain, lumbar 724.2 Active Gab Padron MD Lumbago Cough 786.2 Active Jillina Tyrel RN PHYSICIAN OFFICE Cough 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 Jillina Frazellilian RN PHYSICIAN OFFICE 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 Anemia 285.9 Active Gab Padron MD Anemia, unspecified Conjunctivitis 372.30 Active Jillina Tyrel RN PHYSICIAN OFFICE Conjunctivitis, unspecified Sinusitis 473.9 Active Jillina Frazell RN PHYSICIAN OFFICE Unspecified sinusitis (chronic) Nonspecific syndrome suggestive of viral illness 079.99 Active Rodrigo Sarah APRN Unspecified viral infection Laryngitis 464.00 Active Jillina Tyrel RN PHYSICIAN OFFICE Acute laryngitis without mention of obstruction Abdominal [...] MD PhD INGROWN TOENAIL ICD-703.0 Inactive Yolande Linsday MD PhD Hip pain, left ICD-719.45 Inactive [...] left ICD-844.9 Inactive Yolande Lindsay MD PhD Medication List Medication Instructions Start Date Stop Date Generic Name ND Status Provider Patient Instruction PREDNISONE 20 MG TAB 2 tabs daily for 3 days, 1 tab daily for 3 days, 1/2 tab daily for 2 days PREDNISONE 93316654376 No Longer Active Gab Padron MD Active ZOFRAN ODT 4 MG TBDP 1 po q6hr PRN Nausea ONDANSETRON 85470943426 Active Jillina Frazell RN PHYSICIAN OFFICE Active IBUPROFEN 600 MG TAB 1 tablet by mouth every 6 hours for 7 days, then 1 tablet every 6 hours as needed. Take with food IBUPROFEN 22308119806 Active Jillina Frazell RN PHYSICIAN OFFICE Active BACTRIM DS 800-160 MG TAB 1 tab by mouth twice daily TRIMETHOPRIM-SULFAMETHOXAZOLE 39230849164 No Longer Active Gab Padron MD Active ADVAIR DISKUS 250-50 MCG/DOSE AEPB 1 puff BID FLUTICASONE- SALMETEROL 94228963137 Active Rodrigo Sarah APRN Active LEVOTHYROXINE SODIUM 75 MCG TABS Take 1 tab daily LEVOTHYROXINE SODIUM 52667031733 No Longer Active Mariana Medellinelise HICKEYA Active SYNTHROID 88 MCG ORAL TABS Take one by mouth daily LEVOTHYROXINE SODIUM 07351930108 Active Tisha Lambert APRN Active CHERATUSSIN AC 100-10 MG/5ML SYRP 1 tsp by mouth every 4 hours as needed for cough GUAIFENESIN-CODEINE 15991244766 No Longer Active Gab Padron MD Active POLYTRIM 39040-6.1 UNIT/ML-% SOLN 1 gtt to affected eye q3h x 7 days POLYMYXIN B-TRIMETHOPRIM 08169021906 No Longer Active Gab Padron MD Active FLUTICASONE PROPIONATE 50 MCG/ACT SUSP 1 to 2 sprays each nostril daily 04/21 FLUTICASONE PROPIONATE 97700636474 No Longer Active Gab Padron MD Active TRILEPTAL 600 MG TABS Take one 1 tablet in Am and 1 tablet at night OXCARBAZEPINE 56400662522 Active Gab Padron MD Active CEFDINIR 300 MG CAPS 1 po BID x 10 days CEFDINIR 70426839205 No Longer Active Rodrigo Sarah APRN Active CEFTIN 500 MG TAB 1 twice a day CEFUROXIME AXETIL 00539329603 No Longer Active Gab Padron MD Active AZITHROMYCIN 250 MG TABS 2 po qd x 1 day, then 1 po qd x 4 days AZITHROMYCIN 51918684693 No Longer Active Rodrigo Sarah APRN Active CLARITIN 10 MG TAB 1 tablet by mouth daily as needed for allergies LORATADINE 61451837908 Active Rodrigo Sarah APRN Active OXYCODONE HCL 5 MG ORAL CAPS 1 TAB PO Q HS OXYCODONE HCL 32301781536 No Longer Active Rodrigo Sarah APRN Active NIASPAN 500 MG ORAL CR-TABS 1 pill nightly x 1 week, then 2 pills nightly x 1 week, then 3 pills nightly x 1 week, then 4 pills nightly NIACIN (ANTIHYPERLIPIDEMIC) 55946361018 No Longer Active Rodrigo Sarah APRN Active NIACIN 500 MG TABS 1 pill by mouth nightly x 1 week, then 2 pills x 1 week, then 3 pills x 1 week, then 4 pills nightly - take after evening meal, with applesauce or an apple NIACIN 28882442835 No Longer Active Yolande Lindsay MD PhD Active FISH OIL 1000 MG CAPS 3 pills daily OMEGA-3 FATTY ACIDS 98898080810 Active Yolande Lindsay MD PhD Active TRIAMCINOLONE ACETONIDE 0.1 % CREA apply bid sparingly to rash TRIAMCINOLONE ACETONIDE 82931868522 Active Yolande Lindsay MD PhD Active FUROSEMIDE 20 MG TAB 1 tablet by mouth daily FUROSEMIDE 02891254709 Active Tisha Lambert APRN Active LISINOPRIL 20 MG ORAL TABS 1 tab by mouth daily LISINOPRIL 17356096021 Active Tisha Lambert APRN Active FUROSEMIDE 20 MG TABS 1 pill by mouth daily, for edema FUROSEMIDE 80896165499 No Longer Active Yolande Lindsay MD PhD Active ATORVASTATIN CALCIUM 10 MG TABS 1 pill by mouth daily, for cholesterol 09/06 ATORVASTATIN CALCIUM 53972938135 Active Tisha Lambert APRN Active CALCIUM 600+D PLUS MINERALS 600-400 MG-UNIT ORAL CHEW 1 tab by mouth daily CALCIUM CARBONATE-VIT D-MIN 74209049736 No Longer Active Yolande Lindsay MD PhD Active CYCLOBENZAPRINE HCL 10 MG TABS 1 tablet by mouth three times daily as needed for muscle spasm/pain CYCLOBENZAPRINE HCL 38941778046 Active Yolande Lindsay MD PhD Active ONDANSETRON 4 MG TBDP 1 q4h PRN nausea ONDANSETRON 56125972832 Active Yolande Lindsay MD PhD Active ADULT ASPIRIN EC LOW STRENGTH 81 MG TBEC Take 1 tablet by mouth daily 2014 ASPIRIN 17535252651 No Longer Active Yolaned Lindsay MD PhD Active ZOFRAN ODT 4 MG TBDP 1 pill dissolved by mouth every 4 hours if needed for nausea ONDANSETRON 48354991046 No Longer Active Yolande Lindsay MD PhD Active CEFTIN 500 MG TAB 1 twice a day CEFUROXIME AXETIL 60816754732 No Longer Active Yolande Lindsay MD PhD Active ALBUTEROL SULFATE 0.083 % NEBU SOLN one vial per nebulizer every 4-6 hours as needed ALBUTEROL SULFATE 40974575994 No Longer Active Alexis Ordaz MD Active DOXYCYCLINE HYCLATE 100 MG CAP 1 cap by mouth twice daily DOXYCYCLINE HYCLATE 29974501955 No Longer Active Yolande Lindsay MD PhD Active CYCLOBENZAPRINE HCL 10 MG TABS 1/2 - 1 tab by mouth three times daily if needed for spasms/pain CYCLOBENZAPRINE HCL 82104067387 No Longer Active Yolande Lindsay MD PhD Active AZITHROMYCIN 250 MG TABS 2 pills on day 1, then 1 pill daily x 4 days AZITHROMYCIN 79696684151 No Longer Active Yolande Lindsay MD PhD Active XOPENEX 1.25 MG/3ML NEBU 1 neb every 4 hours if needed for cough/congestion LEVALBUTEROL HCL 59268681374 No Longer Active Yolande Lindsay MD PhD Active DOXYCYCLINE HYCLATE 100 MG TAB 1 tab twice a day for 14 days 2013 DOXYCYCLINE HYCLATE 21911472402 No Longer Active Yolande Lindsay MD PhD Active PREVACID 30 MG CPDR Take 1 tablet by mouth daily-PRN LANSOPRAZOLE 93742294058 No Longer Active Yolande Lindsay MD PhD Active PA VITAMIN D-3 2000 UNIT CAPS 1 CAP PO DAILY CHOLECALCIFEROL 30450174924 No Longer Active Yolande Lindsay MD PhD Active CEFDINIR 300 MG CAPS by mouth twice a day CEFDINIR 82450225093 No Longer Active Gab Padron MD Active TOPAMAX 50 MG TABS 1 PO twice daily TOPIRAMATE 28641334533 Active Yolande Lindsay MD PhD Active AZITHROMYCIN 250 MG TABS 2 po qd x 1 day, then 1 po qd x 4 days AZITHROMYCIN 74841799927 No Longer Active Yolande Lindsay MD PhD Active DICLOFENAC SODIUM 75 MG TBEC 1 tablet by q 12 hours PRN headaches DICLOFENAC SODIUM 11411457630 No Longer Active Yolande Lindsay MD PhD Active FLONASE 50 MCG/ACT SUSP 1 spray each nostril am and hs FLUTICASONE PROPIONATE 35926270678 No Longer Active Todd Callaway MD Active ANUSOL-HC 25 MG SUPPOSITORY 1 rectally twice a day as needed for hemorrhoids HYDROCORTISONE JAYDEN (RECTAL) 08549188113 No Longer Active Yolande Lindsay MD PhD Active ANUSOL-HC 25 MG SUPPOSITORY 1 suppository rectally each evening as needed for anal fissure HYDROCORTISONE JAYDEN (RECTAL) 36671468333 No Longer Active LONNIE Iglesias Active VALIUM 5 MG TAB 1 po 30 minutes prior to your MRI DIAZEPAM 52867348828 No Longer Active LONNIE Iglesias Active METHOCARBAMOL 750 MG TABS 1 PO QID PRN METHOCARBAMOL 77784798928 No Longer Active Daphne Wetzel APRN Active NITROSTAT 0.4 MG SUBL as directed NITROGLYCERIN 81669270508 No Longer Active Jillina Frazell RN PHYSICIAN OFFICE Active ROBAXIN-750 750 MG TABS 2 four times a day for 3 days as needed for muscle spasm, then 1 four times a day as needed METHOCARBAMOL 69926495443 No Longer Active Silvestrellnacho Sarah APRN Active HYDROCODONE-ACETAMINOPHEN 5-325 MG TABS 1 q 4-6 hrs prn HYDROCODONE-ACETAMINOPHEN 36586224191 No Longer Active Silvestrellina Tyrel ZAPATAN Active VERAPAMIL HCL CR 180 MG CR-TABS TAKE 1 TAB DAILY VERAPAMIL HCL 75926974906 No Longer Active Yolande Lindsay MD PhD Active BACTRIM DS 800-160 MG TAB 1 tab by mouth twice daily TRIMETHOPRIM-SULFAMETHOXAZOLE 52406218601 No Longer Active Yolande Lindsay MD PhD Active NEXIUM 40 MG PACK 1 by mouth daily ESOMEPRAZOLE MAGNESIUM 99564109480 No Longer Active Des Hines MD Active EPIPEN 2-CHARLETTE 0.3 MG/0.3ML OMARI as need for allergic reaction EPINEPHRINE 94329048661 Active Yolande Lindsay MD PhD Active NEXIUM 40 MG CPDR 1 PO Q D DAY ESOMEPRAZOLE MAGNESIUM 21973689512 No Longer Active Sadia Perry RN Active NEXIUM 40 MG PACK 1 by mouth daily NEXIUM 40 MG PACK ESOMEPRAZOLE MAGNESIUM Inactive VERAPAMIL HCL CR 180 MG CR-TABS TAKE 1 TAB DAILY VERAPAMIL HCL CR 180 MG CR-TABS VERAPAMIL HCL Inactive HYDROCODONE-ACETAMINOPHEN 5-325 MG TABS 1 q 4-6 hrs prn HYDROCODONE-ACETAMINOPHEN 5-325 MG TABS 100901 HYDROCODONE-ACETAMINOPHEN Inactive ROBAXIN-750 750 MG TABS 2 four times a day for 3 days as needed for muscle spasm, then 1 four times a day as needed ROBAXIN-750 750 MG TABS 456037 METHOCARBAMOL Inactive NITROSTAT 0.4 MG SUBL as directed NITROSTAT 0.4 MG SUBL 350165 NITROGLYCERIN Inactive METHOCARBAMOL 750 MG TABS 1 PO QID PRN METHOCARBAMOL 750 MG TABS 851855 METHOCARBAMOL Inactive VALIUM 5 MG TAB 1 po 30 minutes prior to your MRI VALIUM 5 MG TAB 277625 DIAZEPAM Inactive ANUSOL-HC 25 MG SUPPOSITORY 1 suppository rectally each evening as needed for anal fissure ANUSOL-HC 25 MG SUPPOSITORY 0602435 HYDROCORTISONE JAYDEN (RECTAL) Inactive ANUSOL-HC 25 MG SUPPOSITORY 1 rectally twice a day as needed for hemorrhoids ANUSOL-HC 25 MG SUPPOSITORY 4893709 HYDROCORTISONE JAYDEN (RECTAL) Inactive FLONASE 50 MCG/ACT SUSP 1 spray each nostril am and hs FLONASE 50 MCG/ACT SUSP FLUTICASONE PROPIONATE Inactive DICLOFENAC SODIUM 75 MG TBEC 1 tablet by q 12 hours PRN headaches DICLOFENAC SODIUM 75 MG TBEC 445475 DICLOFENAC SODIUM Inactive PA VITAMIN D-3 2000 UNIT CAPS 1 CAP PO DAILY PA VITAMIN D-3 2000 UNIT CAPS CHOLECALCIFEROL Inactive PREVACID 30 MG CPDR Take 1 tablet by mouth daily-PRN PREVACID 30 MG CPDR 927197 LANSOPRAZOLE Inactive DOXYCYCLINE HYCLATE 100 MG TAB 1 tab twice a day for 14 days 2013 DOXYCYCLINE HYCLATE 100 MG TAB 2434557 DOXYCYCLINE HYCLATE Inactive XOPENEX 1.25 MG/3ML NEBU 1 neb every 4 hours if needed for cough/congestion XOPENEX 1.25 MG/3ML NEBU 320258 LEVALBUTEROL HCL Inactive CYCLOBENZAPRINE HCL 10 MG TABS 1/2 - 1 tab by mouth three times daily if needed for spasms/pain CYCLOBENZAPRINE HCL 10 MG TABS 037067 CYCLOBENZAPRINE HCL Inactive ALBUTEROL SULFATE 0.083 % NEBU SOLN one vial per nebulizer every 4-6 hours as needed ALBUTEROL SULFATE 0.083 % [facility] SOLN 879399 ALBUTEROL SULFATE Inactive CEFTIN 500 MG TAB 1 twice a day CEFTIN 500 MG TAB 844622 CEFUROXIME AXETIL Inactive ZOFRAN ODT 4 MG TBDP 1 pill dissolved by mouth every 4 hours if needed for nausea ZOFRAN ODT 4 MG TBDP 984160 ONDANSETRON Inactive ADULT ASPIRIN EC LOW STRENGTH 81 MG TBEC Take 1 tablet by mouth daily 2014 ADULT ASPIRIN EC LOW STRENGTH 81 MG TBEC 881436 ASPIRIN Inactive CALCIUM 600+D PLUS MINERALS 600-400 [...] or an apple NIACIN 500 MG TABS 247612 NIACIN Inactive NIASPAN 500 MG ORAL CR-TABS 1 pill nightly x 1 week, then 2 pills nightly x 1 week, then 3 pills nightly x 1 week, then 4 pills nightly NIASPAN 500 MG ORAL CR-TABS NIACIN (ANTIHYPERLIPIDEMIC) Inactive OXYCODONE HCL 5 MG ORAL CAPS 1 TAB PO Q HS OXYCODONE HCL 5 MG ORAL CAPS 0030581 OXYCODONE HCL Inactive FLUTICASONE PROPIONATE 50 MCG/ACT SUSP 1 to 2 sprays each nostril daily 04/21 FLUTICASONE PROPIONATE 50 MCG/ACT SUSP 0271448 FLUTICASONE PROPIONATE Inactive POLYTRIM 21823-2.1 UNIT/ML-% SOLN 1 gtt to affected eye q3h x 7 days POLYTRIM 39725-3.1 UNIT/ML-% SOLN 894647 POLYMYXIN B- TRIMETHOPRIM Inactive CHERATUSSIN AC 100-10 MG/5ML SYRP 1 tsp by mouth every 4 hours as needed for cough CHERATUSSIN AC 100-10 MG/5ML SYRP 458725 GUAIFENESIN-CODEINE Inactive LEVOTHYROXINE SODIUM 75 MCG TABS Take 1 tab daily LEVOTHYROXINE SODIUM 75 MCG TABS 295307 LEVOTHYROXINE SODIUM Inactive BACTRIM DS 800-160 MG TAB 1 tab by mouth twice daily BACTRIM DS 800-160 MG TAB 19820606 TRIMETHOPRIM-SULFAMETHOXAZOLE Inactive AZITHROMYCIN 250 MG TABS 2 po qd x 1 day, then 1 po qd x 4 days AZITHROMYCIN 250 MG TABS 5672612 AZITHROMYCIN Inactive CEFDINIR 300 MG CAPS by mouth twice a day CEFDINIR 300 MG CAPS 20020708 CEFDINIR Inactive AZITHROMYCIN 250 MG TABS 2 pills on day 1, then 1 pill daily x 4 days AZITHROMYCIN 250 MG TABS 9277845 AZITHROMYCIN Inactive DOXYCYCLINE HYCLATE 100 MG CAP 1 cap by mouth twice daily DOXYCYCLINE HYCLATE 100 MG CAP 8291715 DOXYCYCLINE HYCLATE Inactive FUROSEMIDE 20 MG TABS 1 pill by mouth daily, for edema FUROSEMIDE 20 MG TABS 244347 FUROSEMIDE Inactive AZITHROMYCIN 250 MG TABS 2 po qd x 1 day, then 1 po qd x 4 days AZITHROMYCIN 250 MG TABS 2625306 AZITHROMYCIN Inactive CEFTIN 500 MG TAB 1 twice a day CEFTIN 500 MG TAB 822138 CEFUROXIME AXETIL Inactive CEFDINIR 300 MG CAPS 1 po BID x 10 days CEFDINIR 300 MG CAPS 20020708 CEFDINIR Inactive BACTRIM DS 800-160 MG TAB 1 tab by mouth twice daily BACTRIM DS 800-160 MG TAB 348666 TRIMETHOPRIM-SULFAMETHOXAZOLE Inactive PREDNISONE 20 MG TAB 2 tabs daily for 3 days, 1 tab daily for 3 days, 1/2 tab daily for 2 days PREDNISONE 20 MG TAB 215837 PREDNISONE Inactive Immunizations Vaccine Administration Date Value Standard Description Seasonal influenza vaccine, injectable, containing preservative, for > 3 years old (Afluria, FluLaval, Fluzone, Fluvirin, Fluarix, Agriflu(>=18 yo)) Fluzone (>3 yrs.) [VBY557] Influenza, seasonal, injectable influenza immunization (Flu Vax) has been administered Influenza - Unspecified Formulation [CVX88] influenza virus vaccine, unspecified formulation Seasonal influenza vaccine, injectable, containing preservative, for > 3 years old (Afluria, FluLaval, Fluzone, Fluvirin, Fluarix, Agriflu(>=18 yo)) Fluzone (>3 yrs.) [TFK445] Influenza, seasonal, injectable pneumococcal immunization administered Pneumovax 23 [CVX33] pneumococcal polysaccharide vaccine, 23 valent dT (Diphtheria and Tetanus) booster given given Td(adult) unspecified formulation Boostrix (Tetanus toxoid, reduced diphtheria toxoid and acellular pertussis vaccine, adsorbed), booster Boostrix [HKA177] tetanus toxoid, reduced diphtheria toxoid, and acellular [...] E&M - 3141-9 235.5 [lb_av] Weight Measured Diagnostic Results Date Name Value Unit Range Description Lab Report: Basic Metabolic Panel - Chemistry sodium, serum 142 mmol/L 613-093 8362/06/30 potassium, serum 4.4 mmol/L 3.5-5.2 chloride, serum [...] Rate - Chemistry sodium, serum 139 mmol/L 655-026 6701/03/24 carbon dioxide, venous blood 22.4 mmol/L 21.0-32.0 [...] ... - Chemistry sodium, serum 143 mmol/L 116-587 9043/05/02 carbon dioxide, venous blood 25.6 mmol/L 21.0-32.0 [...] PANEL - Chemistry cholesterol, serum 166 mg/dL 453-858 5432/12/06 triglyceride, serum, fasting 86 mg/dL 30-200 HDL [...] dipstick Negative Negative sodium, serum 142 mmol/L 641-181 8239/07/18 carbon dioxide, venous blood 27.8 mmol/L 21.0-32.0 [...] negative Encounters Code Encounter Date Provider Facility CPT-14416 Level 3 Est. Patient 20:13:34 GLO Og MD [facility] CPT-17597 Level 4 Est. Patient 16:31:27 CDT Gab Padron MD [facility] CPT-50496 Level 2 Est. Patient 12:23:38 CDT Jared Og MD [facility] CPT-77365 Level 3 Est. Patient 11:01:51 CDT Gab Padron MD [facility] CPT-42862 Level 3 Est. Patient 15:27:02 CDT Jared Og MD [facility] CPT-20836 Level 4 Est. Patient 09:25:27 CDT Gab Padron MD [facility] CPT-48187 Level 3 Est. Patient 10:29:41 CDT Rodrigo Sarah [facility] CPT-68189 Level 4 Est. Patient 17:51:05 CDT Gab Padron MD [facility] CPT-88160 Level 3 Est. Patient 14:18:08 CDT Gab Padron MD [facility] CPT-02589 Level 4 Est. Patient 10:18:54 CDT Gab Padron MD [facility] CPT-81662 Level 3 Est. Patient 11:30:07 CDT Rodrigo Sarah [facility] CPT-09687 Level 4 Est. Patient 21:02:30 [employer]ARY MARKET [employer] Gab Padron MD [facility] CPT-13493 Level 3 Est. Patient 11:02:19 SECONDARY MARKET MANAGER Gab Padron MD [facility] CPT-45849 Level 4 Est. Patient 22:24:31 SECONDARY MARKET MANAGER Gab Padron MD [facility] CPT-79145 Level 3 Est. Patient 18:33:46 SECONDARY MARKET MANAGER Gab Padron MD [facility] CPT-22837 Level 3 Est. Patient 16:19:11 CDT Yolande Lindsay MD PhD [facility]-04519 Level 3 Est. Patient 18:59:14 CDT Yolande Lindsay MD [facility]-27234 Level 4 Est. Patient 21:29:26 CDT Yolande Lindsay MD [facility]-72632 Level 3 Est. Patient 07:37:45 CDT Yolande Lindsay MD [facility]-80543 Level 3 Est. Patient 17:03:46 CDT Yolande Lindsay MD [facility]-67454 Level 4 Est. Patient 20:02:13 SECONDARY MARKET MANAGER Yolande Lindsay MD [facility]-16237 Level 3 Est. Patient 16:02:07 SECONDARY MARKET MANAGER Alexis Ordaz MD [facility]-37392 Level 3 Est. Patient 12:41:24 SECONDARY MARKET MANAGER Yolande Lindsay MD [facility]-03866 Level 3 Est. Patient 15:41:20 SECONDARY MARKET MANAGER Yolande Lindsay MD [facility]-79165 Level 3 Est. Patient 13:20:02 SECONDARY MARKET MANAGER Yolande Lindsay MD [facility]-60706 Level 3 Est. Patient 15:00:38 CDT Jared Og MD [facility]-22662 Level 3 Est. Patient 10:22:32 CDT Yolande Lindsay MD [facility]-04808 Level 3 Est. Patient 17:12:58 CDT Yolande Lindsay MD [facility]-19935 Level 4 Est. Patient 13:30:58 CDT Yolande Lindsay MD [facility]-30469 Level 4 New Patient 09:02:42 CDT Jared Og MD [facility]-04650 Level 3 Est. Patient 08:19:07 CDT Yolande Lindsay MD [facility]-37829 Level 3 Est. Patient 12:00:13 SECONDARY MARKET MANAGER Gab Padron MD [facility]-00432 Level 3 Est. Patient 16:15:23 SECONDARY MARKET MANAGER Yolande Lindsay MD [facility]65842 Level 2 Est. Patient 19:47:15 CDT Yolande Lindsay MD [facility]63115 Level 3 Est. Patient 21:38:31 CDT Yolnade Lindsay MD [facility]26840 Level 3 Est. Patient 10:25:12 CDT Adiel PERAZA [facility]-94543 Level 4 Est. Patient 10:51:58 CDT Yolande Lindsay MD [facility]-59636 Level 3 Est. Patient 14:04:55 SECONDARY MARKET MANAGER Rodrigo Sarah [facility]-63888 Level 3 Est. Patient 10:46:35 SECONDARY MARKET MANAGER Rodrigo Sarah [facility]-38246 Level 3 Est. Patient 14:24:37 SECONDARY MARKET MANAGER Yolande Lindsay MD [facility]-24272 Level 3 Est. Patient 17:41:58 SECONDARY MARKET MANAGER Yolande Lindsay MD [facility]98407 Level 2 Est. Patient 22:01:41 SECONDARY MARKET MANAGER Rodrigo Sarah [facility]-13733 Level 2 Est. Patient 22:01:11 SECONDARY MARKET MANAGER Rodrigo Sarah [facility]12795 Level 3 Est. Patient 10:12:29 SECONDARY MARKET MANAGER Rodrigo Sarah [facility]-26216 Level 3 Est. Patient 11:05:44 CDT Alexis Ordaz MD [facility] CPT-53519 Level 3 Est. Patient 14:57:20 CDT Yolande Lindsay MD [facility] CPT-33717 Level 3 Est. Patient 14:40:57 CDT Yolande Lindsay MD [facility] CPT-21405 Level 3 Est. Patient 20:55:40 CDT Yolande Lindsay MD [facility] CPT-09605 Level 3 Est. Patient 12:42:38 SECONDARY MARKET MANAGER Yolande Lindsay MD [facility] CPT-44929 Level 3 Est. Patient 11:54:49 SECONDARY MARKET MANAGER Des Hines MD [facility] CPT-79396 Level 3 Est. Patient 17:06:38 CDT Dewayne PERAZA [facility] Procedures Code Procedure Name Date Entry Date Standard Description CPT-22100 Venipuncture Draw Fee 08:37:59 SECONDARY MARKET MANAGER CPT-25041 Liver Profile - LAB USE ONLY 08:37:59 SECONDARY MARKET MANAGER CPT-60868 Lipid - LAB USE ONLY 08:37:58 SECONDARY MARKET MANAGER CPT-22330 First Vx - Ix admin via ID IM or jet injects without counseling by physician 11:52:31 CDT CPT-35145 Fluzone Preservative Free Intramuscular Suspension 11:52 :31 CDT CPT-93310 Foot, left, comp min 3V - XRAY USE ONLY 09:24:54 CDT CPT-93014 Abd single AP View - XRAY USE ONLY 11:16:17 CDT CPT-79589 T spine AP/ Lat - XRAY USE ONLY 09:34:21 CDT CPT-95498 Chest 2V Frontal and Lat - XRAY USE ONLY 10:48:51 CDT CPT-52556 LS spine comp w obliq 13:28:00 SEC[employer]ARY MARKET MANAGER CPT-J1040 Depo Medrol 80 mg (Methyl Prednisolone Acetate) 10:51: 28 [employer]ARY MARKET MANAGER CPT-J1100 Decadron 8mg (Dexamethasone) 10:51:28 SECONDARY MARKET MANAGER CPT-63015 Abx/Therapy Injection 10:51:28 SECONDARY MARKET MANAGER CPT-J1100 Decadron 8mg (Dexamethasone) 21:02:30 SECONDARY MARKET MANAGER CPT-J1040 Depo Medrol 80 mg (Methyl Prednisolone Acetate) 21:02: 30 SECONDARY MARKET MANAGER [id number] Event Monitor - MC Transmission 09:12:32 CDT 08/06 [id number] Event Monitor - MC review and interp 09:12:32 CDT [id number] Event Monitor - MC recording 09:12:32 CDT CPT-56293 EKG Trac and Interp 16:50:22 CDT CPT-J1030 Depo Medrol 40 mg (Methyl Prednisolone Acetate) 17:05: 54 CDT CPT-J1100 Decadron 4mg (Dexamethasone) 17:05:54 CDT CPT-55694 Abx/Therapy Injection 17:05:54 CDT CPT-J1100 Decadron 4mg (Dexamethasone) 16:55:28 CDT CPT-J1030 Depo Medrol 40 mg (Methyl Prednisolone Acetate) 16:55: 28 CDT CPT-43660 Ankle Complete - Min 3V 15:58:50 CDT CPT-08037 Knee 3V 15:58:50 CDT CPT-97648 Hip comp min 2V 15:58:50 CDT CPT-J2270 Morphine Sulfate 10 mg 14:25:44 SECONDARY MARKET MANAGER CPT-J2550 Phenergan 12.5 mg (Promethazine) 14:25:44 SECONDARY MARKET MANAGER CPT-66532 Abx/Therapy Injection 14:25:44 SECONDARY MARKET MANAGER CPT-J2550 Phenergan 12.5 mg (Promethazine) 14:08:03 SECONDARY MARKET MANAGER CPT-J2270 Morphine Sulfate 10 mg 14:08:03 SECONDARY MARKET MANAGER CPT-63913 Bladder Scan 15:00:38 CDT CPT-TCMM Transitional Care Mgmt-Moderate 09:52:22 CDT CPT-J1030 Depo Medrol 40 mg (Methyl Prednisolone Acetate) 10:55: 18 CDT CPT-J1100 Decadron 4mg (Dexamethasone) 10:55:18 CDT CPT-43049 Abx/Therapy Injection 10:55:18 CDT CPT-J1030 Depo Medrol 40 mg (Methyl Prednisolone Acetate) 10:22: 32 CDT CPT-J1100 Decadron 4mg (Dexamethasone) 10:22:32 CDT CPT-13260 Postop F/U Visit 14:37:13 CDT CPT-68248 Ankle Complete - Min 3V 17:11:58 CDT CPT-80903 Foot comp min 3V 17:11:58 CDT CPT-58317 Bladder Scan 09:56:58 CDT CPT-59430 Postop F/U Visit 09:56:58 CDT CPT-11582 Cystoscopy 09:02:42 CDT CPT-95798 Bladder Scan 09:02:42 CDT CPT-62589 Abd single AP View 16:00:35 CDT CPT-72931 Administration single or combination vaccine inc oral 10 :15:43 CDT CPT-85630 Influenza split virus > age 3 10:15:43 CDT CPT-34356 Nail Avulsion 09:24:57 CDT CPT-OV Office Visit 11:15:41 CDT CPT-82795 Abx/Therapy Injection 10:51:30 CDT CPT-J3301 Kenalog 40 mg (Triamcinolone Acetonide) 10:25:12 CDT CPT-J1100 Decadron 4mg (Dexamethasone) 10:25:12 CDT CPT-15326 Anoscopy diagnostic 10:36:12 CDT CPT-OV Office Visit 15:34:31 CDT CPT-75704 Abx/Therapy Injection 08:21:15 [employer] CPT-J1885 Toradol 60 mg (Ketorolac) 10:46:35 [employer] CPT-OV Office Visit 19:51:16 [employer] CPT-08562 Spec Collection and Handling Fee 14:34:18 [employer] CPT-PV Prev. Care Visit 14:19:18 [employer] CPT-07763 Postop F/U Visit 14:47:51 [employer] CPT-57176 Postop F/U Visit 15:15:14 [employer] CPT-52862 Postop F/U Visit 14:41:43 CDT CPT-38083 Postop F/U Visit 15:47:46 CDT CPT-OV Office Visit 15:27:23 CDT CPT-OV Office Visit 17:20:34 CDT CPT-11361 Abx/Therapy Injection 15:05:57 CDT CPT-J1100 Decadron 8mg (Dexamethasone) 14:44:57 CDT CPT-J1040 Depo Medrol 80 mg (Methyl Prednisolone Acetate) 14:44: 57 CDT CPT-JTINJ Joint Injection 10:17:37 CDT CPT-15105 Administration 2+ single or combination vaccines inc oral 13:01:46 [employer] CPT-09536 Administration single or combination vaccine inc oral 13 :01:46 [employer] CPT-48290 Pneumovax 13:01:46 [employer] CPT-40338 Influenza split virus > age 3 13:01:46 [employer] CPT-01173 Administration single or combination vaccine inc oral 08 :56:49 CDT CPT-84862 Tdap 08:56:49 CDT
--- OUTSIDE RECORDS SUMMARY | 2017-03-21 21:04 | XMS REPORT | Clinical Summary ---
Author Author Admin, MARGRET Organization [employer] Address Unknown Phone Unavailable Allergies, Adverse Reactions, Alerts Allergy Name Reaction Description Start Date Severity Status Provider VALENTIN Critical Active Rodrigo Montemayorl KNOTTER CHLORHEXIDINE GLUCONATE tongue and gums swollen Critical Active Ho[facility] [place] NORFLEX Rash Critical Active Silvestrellina Frazell KNOTTER TRAZODONE HCL sees things Critical Active Dewayne [...] infarction, hx of 412 Active Ho[facility] Otto [facility] Old myocardial infarction Pelvic pain 789.09 [...] then one daily for three days PREDNISONE 68635675739 Active Gab Padron MD Active TRIAMCINOLONE ACETONIDE 0.1 % CREA apply bid sparingly to rash TRIAMCINOLONE ACETONIDE 81790572358 No Longer Active Gab Padron MD Active TRAMADOL HCL 50 MG TABS 1 tab po every 6 hrs prn pain TRAMADOL HCL 43707217580 No Longer Active Gab Padron MD Active BACTRIM DS 800-160 MG TAB 1 tab by mouth twice daily TRIMETHOPRIM-SULFAMETHOXAZOLE 15698667017 No Longer Active Tisha Lambert KNOTTER Active ADVAIR DISKUS 250-50 MCG/DOSE AEPB 1 puff BID FLUTICASONE-SALMETEROL 38624080134 No Longer Active Todd Callaway MD Active ONDANSETRON 4 MG TBDP 1 q4h PRN nausea ONDANSETRON 09888372455 No Longer Active LONNIE Iglesias Active FISH OIL 1000 MG CAPS 3 pills daily OMEGA-3 FATTY ACIDS 64345644519 No Longer Active LONNIE Iglesias Active CETIRIZINE HCL 10 MG ORAL TABS 1 po qd PRN Allergies CETIRIZINE HCL 78081480646 Active Gab Padron MD Active CLARITIN 10 MG TAB 1 tablet by mouth daily as needed for allergies LORATADINE 74870250808 No Longer Active Gab Padron MD Active PREDNISONE 20 MG TAB take 3 tabs daily for 3 days, 2 tabs daily for 3 days, 1 tab daily for 3 days, 1/2 tab daily for 3 days PREDNISONE 45238694797 No Longer Active Tisha Lambert APRN Active PREDNISONE 20 MG TAB 2 tabs daily for 3 days, 1 tab daily for 3 days, 1/2 tab daily for 2 days PREDNISONE 48535650534 No Longer Active Gab Padron MD Active ZOFRAN ODT 4 MG TBDP 1 po q6hr PRN Nausea ONDANSETRON 95684254303 Active Gab Padron MD Active IBUPROFEN 600 MG TAB 1 tablet by mouth every 6 hours for 7 days, then 1 tablet every 6 hours as needed. Take with food IBUPROFEN 63185124237 Active Rodrigo Sarah APRN Active BACTRIM DS 800-160 MG TAB 1 tab by mouth twice daily TRIMETHOPRIM-SULFAMETHOXAZOLE 42279945587 No Longer Active Gab Padron MD Active LEVOTHYROXINE SODIUM 75 MCG TABS Take 1 tab daily LEVOTHYROXINE SODIUM 43458621126 No Longer Active Mariana FLEMING Active SYNTHROID 88 MCG ORAL TABS Take one by mouth daily LEVOTHYROXINE SODIUM 97321187507 Active Gab Padron MD Active CHERATUSSIN AC 100-10 MG/5ML SYRP 1 tsp by mouth every 4 hours as needed for cough GUAIFENESIN-CODEINE 35042260666 No Longer Active Gab Padron MD Active POLYTRIM 21935-3.1 UNIT/ML-% SOLN 1 gtt to affected eye q3h x 7 days POLYMYXIN B-TRIMETHOPRIM 19869897612 No Longer Active Gab Padron MD Active FLUTICASONE PROPIONATE 50 MCG/ACT SUSP 1 to 2 sprays each nostril daily 04/21 FLUTICASONE PROPIONATE 99676752960 No Longer Active Gab Padron MD Active TRILEPTAL 600 MG TABS Take one 1 tablet in Am and 1 tablet at night OXCARBAZEPINE 06450313882 Active Gab Padron MD Active CEFDINIR 300 MG CAPS 1 po BID x 10 days CEFDINIR 96157324655 No Longer Active Rodrigo Sarah APRN Active CEFTIN 500 MG TAB 1 twice a day CEFUROXIME AXETIL 84716716761 No Longer Active Gab Padron MD Active AZITHROMYCIN 250 MG TABS 2 po qd x 1 day, then 1 po qd x 4 days AZITHROMYCIN 48078411481 No Longer Active Rodrigo Sarah APRN Active OXYCODONE HCL 5 MG ORAL CAPS 1 TAB PO Q HS OXYCODONE HCL 88844883683 No Longer Active Rodrigo Sarah APRN Active NIASPAN 500 MG ORAL CR-TABS 1 pill nightly x 1 week, then 2 pills nightly x 1 week, then 3 pills nightly x 1 week, then 4 pills nightly NIACIN (ANTIHYPERLIPIDEMIC) 49537197458 No Longer Active Rodrigo Sarah APRN Active NIACIN 500 MG TABS 1 pill by mouth nightly x 1 week, then 2 pills x 1 week, then 3 pills x 1 week, then 4 pills nightly - take after evening meal, with applesauce or an apple NIACIN 90193694309 No Longer Active Yolande Lindsay MD PhD Active FUROSEMIDE 20 MG TAB 1 tablet by mouth daily FUROSEMIDE 56384569613 Active Gab Padron MD Active LISINOPRIL 20 MG ORAL TABS 1 tab by mouth daily LISINOPRIL 49819915470 Active Gab Padron MD Active FUROSEMIDE 20 MG TABS 1 pill by mouth daily, for edema FUROSEMIDE 43826317151 No Longer Active Yolande Lindsay MD PhD Active ATORVASTATIN CALCIUM 10 MG TABS 1 pill by mouth daily, for cholesterol 09/06 ATORVASTATIN CALCIUM 48192137203 Active Gab Padron MD Active CALCIUM 600+D PLUS MINERALS 600-400 MG-UNIT ORAL CHEW 1 tab by mouth daily CALCIUM CARBONATE-VIT D-MIN 62369643306 No Longer Active Yolande Lindsay MD PhD Active CYCLOBENZAPRINE HCL 10 MG TABS 1 tablet by mouth three times daily as needed for muscle spasm/pain CYCLOBENZAPRINE HCL 82560051932 Active Yolande Lindsay MD PhD Active ADULT ASPIRIN EC LOW STRENGTH 81 MG TBEC Take 1 tablet by mouth daily 2014 ASPIRIN 71848708327 No Longer Active Yolande Lindsay MD PhD Active ZOFRAN ODT 4 MG TBDP 1 pill dissolved by mouth every 4 hours if needed for nausea ONDANSETRON 15024820665 No Longer Active Yolande Lindsay MD PhD Active CEFTIN 500 MG TAB 1 twice a day CEFUROXIME AXETIL 10404242369 No Longer Active Yolande Lindsay MD PhD Active ALBUTEROL SULFATE 0.083 % NEBU SOLN one vial per nebulizer every 4-6 hours as needed ALBUTEROL SULFATE 03497884867 No Longer Active Alexis Ordaz MD Active DOXYCYCLINE HYCLATE 100 MG CAP 1 cap by mouth twice daily DOXYCYCLINE HYCLATE 07624318032 No Longer Active Yloande Lindsay MD PhD Active CYCLOBENZAPRINE HCL 10 MG TABS 1/2 - 1 tab by mouth three times daily if needed for spasms/pain CYCLOBENZAPRINE HCL 73370490407 No Longer Active Yolande Lindsay MD PhD Active AZITHROMYCIN 250 MG TABS 2 pills on day 1, then 1 pill daily x 4 days AZITHROMYCIN 46070935697 No Longer Active Yolande Lindsay MD PhD Active XOPENEX 1.25 MG/3ML NEBU 1 neb every 4 hours if needed for cough/congestion LEVALBUTEROL HCL 29590971063 No Longer Active Yolande Lindsay MD PhD Active DOXYCYCLINE HYCLATE 100 MG TAB 1 tab twice a day for 14 days 2013 DOXYCYCLINE HYCLATE 31403293562 No Longer Active Yolande Lindsay MD PhD Active PREVACID 30 MG CPDR Take 1 tablet by mouth daily-PRN LANSOPRAZOLE 05320842039 No Longer Active Yolande Lindsay MD PhD Active PA VITAMIN D-3 2000 UNIT CAPS 1 CAP PO DAILY CHOLECALCIFEROL 83451995751 No Longer Active Yolande Lindsay MD PhD Active CEFDINIR 300 MG CAPS by mouth twice a day CEFDINIR 00368023897 No Longer Active Gab Padron MD Active TOPAMAX 50 MG TABS 1 PO twice daily TOPIRAMATE 37665062059 Active Yolande Lindsay MD PhD Active AZITHROMYCIN 250 MG TABS 2 po qd x 1 day, then 1 po qd x 4 days AZITHROMYCIN 04618080545 No Longer Active Yolande Lindsay MD PhD Active DICLOFENAC SODIUM 75 MG TBEC 1 tablet by q 12 hours PRN headaches DICLOFENAC SODIUM 12480362831 No Longer Active Yolande Lindsya MD PhD Active FLONASE 50 MCG/ACT SUSP 1 spray each nostril am and hs FLUTICASONE PROPIONATE 54798758842 No Longer Active Todd Callaway MD Active ANUSOL-HC 25 MG SUPPOSITORY 1 rectally twice a day as needed for hemorrhoids HYDROCORTISONE JAYDEN (RECTAL) 15105554401 No Longer Active Yolande Lindsay MD PhD Active ANUSOL-HC 25 MG SUPPOSITORY 1 suppository rectally each evening as needed for anal fissure HYDROCORTISONE JAYDEN (RECTAL) 33311471725 No Longer Active LONNIE Iglesias Active VALIUM 5 MG TAB 1 po 30 minutes prior to your MRI DIAZEPAM 55473278227 No Longer Active LONNIE Iglesias Active METHOCARBAMOL 750 MG TABS 1 PO QID PRN METHOCARBAMOL 18497640968 No Longer Active Daphne Wetzel APRN Active NITROSTAT 0.4 MG SUBL as directed NITROGLYCERIN 07442382491 No Longer Active Rodrigo Sarah APRN Active ROBAXIN-750 750 MG TABS 2 four times a day for 3 days as needed for muscle spasm, then 1 four times a day as needed METHOCARBAMOL 40157177736 No Longer Active Silvestrellnacho Sarah APRN Active HYDROCODONE-ACETAMINOPHEN 5-325 MG TABS 1 q 4-6 hrs prn HYDROCODONE-ACETAMINOPHEN 64650911035 No Longer Active Rodrigo Sarah APRN Active VERAPAMIL HCL CR 180 MG CR-TABS TAKE 1 TAB DAILY VERAPAMIL HCL 26871609883 No Longer Active Yolande Lindsay MD PhD Active BACTRIM DS 800-160 MG TAB 1 tab by mouth twice daily TRIMETHOPRIM-SULFAMETHOXAZOLE 59901077384 No Longer Active Yolande Lindsay MD PhD Active NEXIUM 40 MG PACK 1 by mouth daily ESOMEPRAZOLE MAGNESIUM 90110387286 No Longer Active Des Hines MD Active EPIPEN 2-CHARLETTE 0.3 MG/0.3ML OMARI as need for allergic reaction EPINEPHRINE 03176629399 Active Yolande Lindsay MD PhD Active NEXIUM 40 MG CPDR 1 PO Q D DAY ESOMEPRAZOLE MAGNESIUM 13561672326 No Longer Active Sadia Perry RN Active NEXIUM 40 MG PACK 1 by mouth daily NEXIUM 40 MG PACK ESOMEPRAZOLE MAGNESIUM Inactive VERAPAMIL HCL CR 180 MG CR-TABS TAKE 1 TAB DAILY VERAPAMIL HCL CR 180 MG CR-TABS VERAPAMIL HCL Inactive HYDROCODONE-ACETAMINOPHEN 5-325 MG TABS 1 q 4-6 hrs prn HYDROCODONE-ACETAMINOPHEN 5-325 MG TABS 842410 HYDROCODONE-ACETAMINOPHEN Inactive ROBAXIN-750 750 MG TABS 2 four times a day for 3 days as needed for muscle spasm, then 1 four times a day as needed ROBAXIN-750 750 MG TABS 753165 METHOCARBAMOL Inactive NITROSTAT 0.4 MG SUBL as directed NITROSTAT 0.4 MG SUBL 984274 NITROGLYCERIN Inactive METHOCARBAMOL 750 MG TABS 1 PO QID PRN METHOCARBAMOL 750 MG TABS 926760 METHOCARBAMOL Inactive VALIUM 5 MG TAB 1 po 30 minutes prior to your MRI VALIUM 5 MG TAB 890122 DIAZEPAM Inactive ANUSOL-HC 25 MG SUPPOSITORY 1 suppository rectally each evening as needed for anal fissure ANUSOL-HC 25 MG SUPPOSITORY 4997150 HYDROCORTISONE JAYDEN (RECTAL) Inactive ANUSOL-HC 25 MG SUPPOSITORY 1 rectally twice a day as needed for hemorrhoids ANUSOL-HC 25 MG SUPPOSITORY 4071774 HYDROCORTISONE JAYDEN (RECTAL) Inactive FLONASE 50 MCG/ACT SUSP 1 spray each nostril am and hs FLONASE 50 MCG/ACT SUSP 8615266 FLUTICASONE PROPIONATE Inactive DICLOFENAC SODIUM 75 MG TBEC 1 tablet by q 12 hours PRN headaches DICLOFENAC SODIUM 75 MG TBEC 418234 DICLOFENAC SODIUM Inactive PA VITAMIN D-3 2000 UNIT CAPS 1 CAP PO DAILY PA VITAMIN D-3 2000 UNIT CAPS CHOLECALCIFEROL Inactive PREVACID 30 MG CPDR Take 1 tablet by mouth daily-PRN PREVACID 30 MG CPDR 538346 LANSOPRAZOLE Inactive DOXYCYCLINE HYCLATE 100 MG TAB 1 tab twice a day for 14 days 2013 DOXYCYCLINE HYCLATE 100 MG TAB 4717706 DOXYCYCLINE HYCLATE Inactive XOPENEX 1.25 MG/3ML NEBU 1 neb every 4 hours if needed for cough/congestion XOPENEX 1.25 MG/3ML NEBU 505837 LEVALBUTEROL HCL Inactive CYCLOBENZAPRINE HCL 10 MG TABS 1/2 - 1 tab by mouth three times daily if needed for spasms/pain CYCLOBENZAPRINE HCL 10 MG TABS 472404 CYCLOBENZAPRINE HCL Inactive ALBUTEROL SULFATE 0.083 % NEBU SOLN one vial per nebulizer every 4-6 hours as needed ALBUTEROL SULFATE 0.083 % NEBU SOLN 486718 ALBUTEROL SULFATE Inactive CEFTIN 500 MG TAB 1 twice a day CEFTIN 500 MG TAB 245437 CEFUROXIME AXETIL Inactive ZOFRAN ODT 4 MG TBDP 1 pill dissolved by mouth every 4 hours if needed for nausea ZOFRAN ODT 4 MG TBDP 256871 ONDANSETRON Inactive ADULT ASPIRIN EC LOW STRENGTH 81 MG TBEC Take 1 tablet by mouth daily 2014 ADULT ASPIRIN EC LOW STRENGTH 81 MG TBEC 556365 ASPIRIN Inactive CALCIUM 600+D PLUS MINERALS 600-400 [...] or an apple NIACIN 500 MG TABS 748951 NIACIN Inactive NIASPAN 500 MG ORAL CR-TABS 1 pill nightly x 1 week, then 2 pills nightly x 1 week, then 3 pills nightly x 1 week, then 4 pills nightly NIASPAN 500 MG ORAL CR-TABS NIACIN (ANTIHYPERLIPIDEMIC) Inactive OXYCODONE HCL 5 MG ORAL CAPS 1 TAB PO Q HS OXYCODONE HCL 5 MG ORAL CAPS 4458984 OXYCODONE HCL Inactive FLUTICASONE PROPIONATE 50 MCG/ACT SUSP 1 to 2 sprays each nostril daily 04/21 FLUTICASONE PROPIONATE 50 MCG/ACT SUSP 4267924 FLUTICASONE PROPIONATE Inactive POLYTRIM 70865-0.1 UNIT/ML-% SOLN 1 gtt to affected eye q3h x 7 days POLYTRIM 93331-9.1 UNIT/ML-% SOLN 249636 POLYMYXIN B- TRIMETHOPRIM Inactive CHERATUSSIN AC 100-10 MG/5ML SYRP 1 tsp by mouth every 4 hours as needed for cough CHERATUSSIN AC 100-10 MG/5ML SYRP 034182 GUAIFENESIN-CODEINE Inactive LEVOTHYROXINE SODIUM 75 MCG TABS Take 1 tab daily LEVOTHYROXINE SODIUM 75 MCG TABS 391892 LEVOTHYROXINE SODIUM Inactive CLARITIN 10 MG TAB 1 tablet by mouth daily as needed for allergies CLARITIN 10 MG TAB 932001 LORATADINE Inactive FISH OIL 1000 MG CAPS 3 pills daily FISH OIL 1000 MG CAPS OMEGA-3 FATTY ACIDS Inactive ONDANSETRON 4 MG TBDP 1 q4h PRN nausea ONDANSETRON 4 MG TBDP 321636 ONDANSETRON Inactive ADVAIR DISKUS 250-50 MCG/DOSE AEPB 1 puff BID ADVAIR DISKUS 250-50 MCG/DOSE AEPB FLUTICASONE-SALMETEROL Inactive TRAMADOL HCL 50 MG TABS 1 tab po every 6 hrs prn pain TRAMADOL HCL 50 MG TABS 270475 TRAMADOL HCL Inactive TRIAMCINOLONE ACETONIDE 0.1 % CREA apply bid sparingly to rash TRIAMCINOLONE ACETONIDE 0.1 % CREA 3002925 TRIAMCINOLONE ACETONIDE Inactive BACTRIM DS 800-160 MG TAB 1 tab by mouth twice daily BACTRIM DS 800-160 MG TAB 016312 TRIMETHOPRIM-SULFAMETHOXAZOLE Inactive AZITHROMYCIN 250 MG TABS 2 po qd x 1 day, then 1 po qd x 4 days AZITHROMYCIN 250 MG TABS 5012253 AZITHROMYCIN Inactive CEFDINIR 300 MG CAPS by mouth twice a day CEFDINIR 300 MG CAPS 238678 CEFDINIR Inactive AZITHROMYCIN 250 MG TABS 2 pills on day 1, then 1 pill daily x 4 days AZITHROMYCIN 250 MG TABS 6469676 AZITHROMYCIN Inactive DOXYCYCLINE HYCLATE 100 MG CAP 1 cap by mouth twice daily DOXYCYCLINE HYCLATE 100 MG CAP 0642414 DOXYCYCLINE HYCLATE Inactive FUROSEMIDE 20 MG TABS 1 pill by mouth daily, for edema FUROSEMIDE 20 MG TABS 751424 FUROSEMIDE Inactive AZITHROMYCIN 250 MG TABS 2 po qd x 1 day, then 1 po qd x 4 days AZITHROMYCIN 250 MG TABS 9881571 AZITHROMYCIN Inactive CEFTIN 500 MG TAB 1 twice a day CEFTIN 500 MG TAB 331267 CEFUROXIME AXETIL Inactive CEFDINIR 300 MG CAPS 1 po BID x 10 days CEFDINIR 300 MG CAPS 902688 CEFDINIR Inactive BACTRIM DS 800-160 MG TAB 1 tab by mouth twice daily BACTRIM DS 800-160 MG TAB 19820606 TRIMETHOPRIM-SULFAMETHOXAZOLE Inactive PREDNISONE 20 MG TAB 2 tabs daily for 3 days, 1 tab daily for 3 days, 1/2 tab daily for 2 days PREDNISONE 20 MG TAB 782531 PREDNISONE Inactive PREDNISONE 20 MG TAB take 3 tabs daily for 3 days, 2 tabs daily for 3 days, 1 tab daily for 3 days, 1/2 tab daily for 3 days PREDNISONE 20 MG TAB 919902 PREDNISONE Inactive BACTRIM DS 800-160 MG TAB 1 tab by mouth twice daily BACTRIM DS 800-160 MG TAB 19820606 TRIMETHOPRIM-SULFAMETHOXAZOLE Inactive Immunizations Vaccine Administration Date Value Standard Description Seasonal influenza vaccine, injectable, containing preservative, for > 3 years old (Afluria, FluLaval, Fluzone, Fluvirin, Fluarix, Agriflu(>=18 yo)) Fluzone (>3 yrs.) [HUE684] Influenza, seasonal, injectable influenza immunization (Flu Vax) has been administered Influenza - Unspecified Formulation [CVX88] influenza virus vaccine, unspecified formulation Seasonal influenza vaccine, injectable, containing preservative, for > 3 years old (Afluria, FluLaval, Fluzone, Fluvirin, Fluarix, Agriflu(>=18 yo)) Fluzone (>3 yrs.) [FFX034] Influenza, seasonal, injectable pneumococcal immunization administered Pneumovax 23 [CVX33] pneumococcal polysaccharide vaccine, 23 valent dT (Diphtheria and Tetanus) booster given given Td(adult) unspecified formulation Boostrix (Tetanus toxoid, reduced diphtheria toxoid and acellular pertussis vaccine, adsorbed), booster Boostrix [DDT492] tetanus toxoid, reduced diphtheria toxoid, and acellular [...] temperature weight E&M 249.5 [lb_av] Weight Measured Diagnostic Results Date Name Value Unit Range Description Lab Report: Lipid Panel, HEPATIC PANEL - Chemistry cholesterol, serum 166 mg/dL 317-367 7388/12/06 triglyceride, serum, fasting 86 mg/dL 30-200 HDL [...] negative Encounters Code Encounter Date Provider Facility CPT-02975 Level 3 Est. Patient 14:50:29 CDT Gab Padron MD [facility] CPT-60178 Level 3 Est. Patient 14:46:09 CDT Tisha Lambert APRN [facility] CPT-21797 Level 4 New Patient 16:13:15 CDT Todd Callaway MD [facility] CPT-50059 Level 4 Est. Patient 13:18:33 CDT Gab Padron MD [facility] CPT-59538 Level 3 Est. Patient 15:20:50 CDT Jared Og MD [facility] CPT-82422 Level 3 Est. Patient 17:43:55 CONTRACTING MANAGER Gab Padron MD [facility] CPT-78683 Level 3 Est. Patient 17:07:49 CONTRACTING MANAGER Jared Og MD [facility] CPT-58927 Level 4 Est. Patient 19:55:18 CONTRACTING MANAGER Jared Og MD [facility] CPT-56802 Level 3 Est. Patient 20:13:34 CONTRACTING MANAGER Jared Og MD [facility] CPT-68177 Level 4 Est. Patient 16:31:27 CDT Gab Padron MD [facility] CPT-55766 Level 2 Est. Patient 12:23:38 CDT Jared Og MD [facility] CPT-16674 Level 3 Est. Patient 11:01:51 CDT Gab Padron MD [facility] CPT-84747 Level 3 Est. Patient 15:27:02 CDT Jared Og MD [facility] CPT-88828 Level 4 Est. Patient 09:25:27 CDT Gab Padron MD [facility]-98285 Level 3 Est. Patient 10:29:41 [facility] Patient 17:51:05 CDT Gab Padron MD [facility]-88833 Level 3 Est. Patient 14:18:08 CDT Gab Padron MD [facility]-63532 Level 4 Est. Patient 10:18:54 CDT Gab Pardon MD [facility]-16308 Level 3 Est. Patient 11:30:07 CDT Rodrigo Sarah [facility]-80554 Level 4 Est. Patient 21:02:30 CONTRACTING MANAGER Gab Padron MD [facility]-86329 Level 3 Est. Patient 11:02:19 CONTRACTING MANAGER Gab Padron MD [facility] CPT-49709 Level 4 Est. Patient 22:24:31 CONTRACTING MANAGER Gab Padron MD [facility]-58749 Level 3 Est. Patient 18:33:46 CONTRACTING MANAGER Gab Padron MD [facility]-67723 Level 3 Est. Patient 16:19:11 CDT Yolande Lindsay MD [facility]-26254 Level 3 Est. Patient 18:59:14 CDT Yolande Lindsay MD [facility]-11540 Level 4 Est. Patient 21:29:26 CDT Yolande Lindsay MD [facility]-09382 Level 3 Est. Patient 07:37:45 CDT Yolande Lindsay MD [facility]-58008 Level 3 Est. Patient 17:03:46 CDT Yolande Lindsay MD [facility]-07186 Level 4 Est. Patient 20:02:13 CONTRACTING MANAGER Yolande Lindsay MD [facility] CPT-44611 Level 3 Est. Patient 16:02:07 CONTRACTING MANAGER Alexis Ordaz MD [facility]-51184 Level 3 Est. Patient 12:41:24 CONTRACTING MANAGER Yolande Lindsay MD [facility]-22297 Level 3 Est. Patient 15:41:20 CONTRACTING MANAGER Yolande Lindsay MD [facility]-89594 Level 3 Est. Patient 13:20:02 CONTRACTING MANAGER Yolande Lindsay MD [facility]-50928 Level 3 Est. Patient 15:00:38 CDT Jared Og MD [facility]-08034 Level 3 Est. Patient 10:22:32 CDT Yolande Lindsay MD [facility] CPT-30915 Level 3 Est. Patient 17:12:58 CDT Yolande Lindsay MD [facility] CPT-11790 Level 4 Est. Patient 13:30:58 CDT Yolande Lindsay MD [facility] CPT-65964 Level 4 New Patient 09:02:42 CDT Jared Og MD [facility] CPT-94896 Level 3 Est. Patient 08:19:07 CDT Yolande Lindsay MD [facility] CPT-19748 Level 3 Est. Patient 12:00:13 CONTRACTING MANAGER Gab Padron MD [facility] CPT-85637 Level 3 Est. Patient 16:15:23 CONTRACTING MANAGER Yolande Lindsay MD [facility]-06941 Level 2 Est. Patient 19:47:15 CDT Yolande Lindsay MD [facility]-04600 Level 3 Est. Patient 21:38:31 CDT Yolande Lindsay MD [facility]-02483 Level 3 Est. Patient 10:25:12 CDT Adiel PERAZA [facility]-80289 Level 4 Est. Patient 10:51:58 CDT Yolande Lindsay MD [facility]-28513 Level 3 Est. Patient 14:04:55 CONTRACTING MANAGER Rodrigo Sarah [facility]-13963 Level 3 Est. Patient 10:46:35 CONTRACTING MANAGER Rodrigo Sarah [facility] CPT-05870 Level 3 Est. Patient 14:24:37 CONTRACTING MANAGER Yolande Lindsay MD [facility]-06647 Level 3 Est. Patient 17:41:58 CONTRACTING MANAGER Yolande Lindsay MD [facility]-63777 Level 2 Est. Patient 22:01:41 CONTRACTING MANAGER Rodrigo Sarah [facility] CPT-51625 Level 2 Est. Patient 22:01:11 CONTRACTING MANAGER Rodrigo Sarah [facility]-75565 Level 3 Est. Patient 10:12:29 CONTRACTING MANAGER Rodrigo Sarah [facility]-59593 Level 3 Est. Patient 11:05:44 CDT Alexis Ordaz MD [facility]-66038 Level 3 Est. Patient 14:57:20 CDT Yolande Lindsay MD [facility]-66426 Level 3 Est. Patient 14:40:57 CDT Yolande Lindsay MD [facility]-48087 Level 3 Est. Patient 20:55:40 CDT Yolande Lindsay MD [facility]-03361 Level 3 Est. Patient 12:42:38 CONTRACTING MANAGER Yolande Lindsay MD [facility]07177 Level 3 Est. Patient 11:54:49 CONTRACTING MANAGER Des Hines MD [facility] CPT-57194 Level 3 Est. Patient 17:06:38 CDT Dewayne PERAZA [facility] Procedures Code Procedure Name Date Entry Date Standard Description CPT-J2930 Solu Medrol 125 mg (Methyl Prednisolone Sodium Succinate) 13:19:02 CDT CPT-93356 Abx/Therapy Injection 13:19:02 CDT CPT-J2930 Solu Medrol 125 mg (Methyl Prednisolone Sodium Succinate) 13:05:03 CDT CPT-52776 Hip, complete, 2-3 views - XRAY USE ONLY 17:19:04 CONTRACTING MANAGER CPT-36346 Venipuncture Draw Fee 08:37:59 CONTRACTING MANAGER CPT-07305 Liver Profile - LAB USE ONLY 08:37:59 CONTRACTING MANAGER CPT-94615 Lipid - LAB USE ONLY 08:37:58 CONTRACTING MANAGER CPT-81713 First Vx - Ix admin via ID IM or jet injects without counseling by physician 11:52:31 CDT CPT-87464 Fluzone Preservative Free Intramuscular Suspension 11:52 :31 CDT CPT-82551 Foot, left, comp min 3V - XRAY USE ONLY 09:24:54 CDT CPT-96450 Abd single AP View - XRAY USE ONLY 11:16:17 CDT CPT-41273 T spine AP/ Lat - XRAY USE ONLY 09:34:21 CDT CPT-64272 Chest 2V Frontal and Lat - XRAY USE ONLY 10:48:51 CDT CPT-01634 LS spine comp w obliq 13:28:00 CONTRACTING MANAGER CPT-J1040 Depo Medrol 80 mg (Methyl Prednisolone Acetate) 10:51: 28 CONTRACTING MANAGER CPT-J1100 Decadron 8mg (Dexamethasone) 10:51:28 CONTRACTING MANAGER CPT-56445 Abx/Therapy Injection 10:51:28 CONTRACTING MANAGER CPT-J1100 Decadron 8mg (Dexamethasone) 21:02:30 CONTRACTING MANAGER CPT-J1040 Depo Medrol 80 mg (Methyl Prednisolone Acetate) 21:02: 30 CONTRACTING MANAGER [id number] Event Monitor - MC Transmission 09:12:32 CDT 08/06 [id number] Event Monitor - MC review and interp 09:12:32 CDT [id number] Event Monitor - MC recording 09:12:32 CDT CPT-83484 EKG Trac and Interp 16:50:22 CDT CPT-J1030 Depo Medrol 40 mg (Methyl Prednisolone Acetate) 17:05: 54 CDT CPT-J1100 Decadron 4mg (Dexamethasone) 17:05:54 CDT CPT-42533 Abx/Therapy Injection 17:05:54 CDT CPT-J1100 Decadron 4mg (Dexamethasone) 16:55:28 CDT CPT-J1030 Depo Medrol 40 mg (Methyl Prednisolone Acetate) 16:55: 28 CDT CPT-87073 Ankle Complete - Min 3V 15:58:50 CDT CPT-78168 Knee 3V 15:58:50 CDT CPT-60693 Hip comp min 2V 15:58:50 CDT CPT-J2270 Morphine Sulfate 10 mg 14:25:44 CONTRACTING MANAGER CPT-J2550 Phenergan 12.5 mg (Promethazine) 14:25:44 CONTRACTING MANAGER CPT-04053 Abx/Therapy Injection 14:25:44 CONTRACTING MANAGER CPT-J2550 Phenergan 12.5 mg (Promethazine) 14:08:03 CONTRACTING MANAGER CPT-J2270 Morphine Sulfate 10 mg 14:08:03 CONTRACTING MANAGER CPT-76375 Bladder Scan 15:00:38 CDT CPT-TCMM Transitional Care Mgmt-Moderate 09:52:22 CDT CPT-J1030 Depo Medrol 40 mg (Methyl Prednisolone Acetate) 10:55: 18 CDT CPT-J1100 Decadron 4mg (Dexamethasone) 10:55:18 CDT CPT-68077 Abx/Therapy Injection 10:55:18 CDT CPT-J1030 Depo Medrol 40 mg (Methyl Prednisolone Acetate) 10:22: 32 CDT CPT-J1100 Decadron 4mg (Dexamethasone) 10:22:32 CDT CPT-94498 Postop F/U Visit 14:37:13 CDT CPT-63199 Ankle Complete - Min 3V 17:11:58 CDT CPT-69180 Foot comp min 3V 17:11:58 CDT CPT-02345 Bladder Scan 09:56:58 CDT CPT-04440 Postop F/U Visit 09:56:58 CDT CPT-96902 Cystoscopy 09:02:42 CDT CPT-74348 Bladder Scan 09:02:42 CDT CPT-69622 Abd single AP View 16:00:35 CDT CPT-61676 Administration single or combination vaccine inc oral 10 :15:43 CDT CPT-34222 Influenza split virus > age 3 10:15:43 CDT CPT-25308 Nail Avulsion 09:24:57 CDT CPT-OV Office Visit 11:15:41 CDT CPT-69090 Abx/Therapy Injection 10:51:30 CDT CPT-J3301 Kenalog 40 mg (Triamcinolone Acetonide) 10:25:12 CDT CPT-J1100 Decadron 4mg (Dexamethasone) 10:25:12 CDT CPT-02982 Anoscopy diagnostic 10:36:12 CDT CPT-OV Office Visit 15:34:31 CDT CPT-54480 Abx/Therapy Injection 08:21:15 CONTRACTING MANAGER CPT-J1885 Toradol 60 mg (Ketorolac) 10:46:35 CONTRACTING MANAGER CPT-OV Office Visit 19:51:16 CONTRACTING MANAGER CPT-07834 Spec Collection and Handling Fee 14:34:18 CONTRACTING MANAGER CPT-PV Prev. Care Visit 14:19:18 CONTRACTING MANAGER CPT-03778 Postop F/U Visit 14:47:51 CONTRACTING MANAGER CPT-23755 Postop F/U Visit 15:15:14 CONTRACTING MANAGER CPT-10949 Postop F/U Visit 14:41:43 CDT CPT-04347 Postop F/U Visit 15:47:46 CDT CPT-OV Office Visit 15:27:23 CDT CPT-OV Office Visit 17:20:34 CDT CPT-21260 Abx/Therapy Injection 15:05:57 CDT CPT-J1100 Decadron 8mg (Dexamethasone) 14:44:57 CDT CPT-J1040 Depo Medrol 80 mg (Methyl Prednisolone Acetate) 14:44: 57 CDT CPT-JTINJ Joint Injection 10:17:37 CDT CPT-37928 Administration 2+ single or combination vaccines inc oral 13:01:46 CONTRACTING MANAGER CPT-57478 Administration single or combination vaccine inc oral 13 :01:46 CONTRACTING MANAGER CPT-61597 Pneumovax 13:01:46 CONTRACTING MANAGER CPT-62659 Influenza split virus > age 3 13:01:46 CONTRACTING MANAGER CPT-18005 Administration single or combination vaccine inc oral 08 :56:49 CDT CPT-13400 Tdap 08:56:49 CDT
--- OUTSIDE RECORDS SUMMARY | 2017-03-21 21:06 | XMS REPORT | Clinical Summary ---
Author Author Admin, E Organization [facility] Address Unknown Phone Unavailable Allergies, Adverse Reactions, Alerts Allergy Name Reaction Description Start Date Severity Status Provider VALENTIN Critical Active Rodrigo Fracharlottel MUSEUM ASSISTANT CHLORHEXIDINE GLUCONATE tongue and gums swollen Critical Active Hoa Otto RMA NORFLEX Rash Critical Active Silvestrellina Frazell MUSEUM ASSISTANT TRAZODONE HCL sees things Critical Active [...] ankle and foot EDEMA, LIMB 782.3 Resolved Yolaned Lindsay MD PhD Edema HYPERTENSION 401.1 Active Dewayne PERAZA Benign essential hypertension HYPERLIPIDEMIA 272.4 Active Yolande Lnidsay MD PhD Other and unspecified hyperlipidemia ABDOMINAL [...] MD Lumbago Cough 786.2 Active Jillina Tyrel MUSEUM ASSISTANT Cough 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 Jillina Frazellilian MUSEUM ASSISTANT 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 Anemia 285.9 Active Gab Padron MD Anemia, unspecified Conjunctivitis 372.30 Active Jillnacho Sarah APRN Conjunctivitis, unspecified Sinusitis 473.9 Active Silvestrellina Frazell MUSEUM ASSISTANT Unspecified sinusitis (chronic) Nonspecific syndrome suggestive of viral illness 079.99 Active Jillina Siml MUSEUM ASSISTANT Unspecified viral infection Laryngitis 464.00 Active Jillina Farshadzell MUSEUM ASSISTANT Acute laryngitis without mention of obstruction [...] Flank pain, left 789.09 Active Jillina Siml MUSEUM ASSISTANT Abdominal pain, other specified site; multiple sites Abdominal pain, generalized 789.07 Active Jillina Siml MUSEUM ASSISTANT Abdominal pain, generalized Back pain, thoracic region, left 724.1 Active Jillina Farshadzell MUSEUM ASSISTANT Pain in thoracic spine FOOT PAIN, [...] TBDP 1 po q6hr PRN Nausea ONDANSETRON 68594108903 Active Jillina Frazell MUSEUM ASSISTANT Active IBUPROFEN 600 MG TAB 1 tablet by mouth every 6 hours for 7 days, then 1 tablet every 6 hours as needed. Take with food IBUPROFEN 57336313784 Active Jillina Frazell MUSEUM ASSISTANT Active BACTRIM DS 800-160 MG TAB 1 tab by mouth twice daily TRIMETHOPRIM-SULFAMETHOXAZOLE 41249259014 No Longer Active Gab Padron MD Active ADVAIR DISKUS 250-50 MCG/DOSE AEPB 1 puff BID FLUTICASONE- SALMETEROL 73330765482 Active Jillina Frazell MUSEUM ASSISTANT Active LEVOTHYROXINE SODIUM 75 MCG TABS Take 1 tab daily LEVOTHYROXINE SODIUM 15781947014 No Longer Active Mariana FLEMING Active SYNTHROID 88 MCG ORAL TABS Take one by mouth daily LEVOTHYROXINE SODIUM 29882466333 Active Mariana FLEMING Active CHERATUSSIN AC 100-10 MG/5ML SYRP 1 tsp by mouth every 4 hours as needed for cough GUAIFENESIN-CODEINE 39322988606 No Longer Active Gab Padron MD Active POLYTRIM 21390-0.1 UNIT/ML-% SOLN 1 gtt to affected eye q3h x 7 days POLYMYXIN B-TRIMETHOPRIM 32312128164 No Longer Active Gab Padron MD Active FLUTICASONE PROPIONATE 50 MCG/ACT SUSP 1 to 2 sprays each nostril daily 04/21 FLUTICASONE PROPIONATE 21803683729 No Longer Active Gab Padron MD Active TRILEPTAL 600 MG TABS Take one 1 tablet in Am and 1 tablet at night OXCARBAZEPINE 91242517332 Active Gab Padron MD Active CEFDINIR 300 MG CAPS 1 po BID x 10 days CEFDINIR 37034101235 No Longer Active Rodrigo Sarah APRN Active CEFTIN 500 MG TAB 1 twice a day CEFUROXIME AXETIL 72308077335 No Longer Active Gab Padron MD Active AZITHROMYCIN 250 MG TABS 2 po qd x 1 day, then 1 po qd x 4 days AZITHROMYCIN 74841376438 No Longer Active Rodrigo Sarah APRN Active CLARITIN 10 MG TAB 1 tablet by mouth daily as needed for allergies LORATADINE 72759370134 Active Rodrigo Sarah APRN Active OXYCODONE HCL 5 MG ORAL CAPS 1 TAB PO Q HS OXYCODONE HCL 71013656796 No Longer Active Rodrigo Sarah APRN Active NIASPAN 500 MG ORAL CR-TABS 1 pill nightly x 1 week, then 2 pills nightly x 1 week, then 3 pills nightly x 1 week, then 4 pills nightly NIACIN (ANTIHYPERLIPIDEMIC) 42144872709 No Longer Active Rodrigo Sarah APRN Active NIACIN 500 MG TABS 1 pill by mouth nightly x 1 week, then 2 pills x 1 week, then 3 pills x 1 week, then 4 pills nightly - take after evening meal, with applesauce or an apple NIACIN 73240568202 No Longer Active Yolande Lindsay MD PhD Active FISH OIL 1000 MG CAPS 3 pills daily OMEGA-3 FATTY ACIDS 71621799836 Active Yolande Lindsay MD PhD Active TRIAMCINOLONE ACETONIDE 0.1 % CREA apply bid sparingly to rash TRIAMCINOLONE ACETONIDE 93049112090 Active Yolande Lindsay MD PhD Active FUROSEMIDE 20 MG TAB 1 tablet by mouth daily FUROSEMIDE 40514939774 Active Tisha Lambert MUSEUM ASSISTANT Active LISINOPRIL 20 MG ORAL TABS 1 tab by mouth daily LISINOPRIL 19668119048 Active Gab Padron MD Active FUROSEMIDE 20 MG TABS 1 pill by mouth daily, for edema FUROSEMIDE 69506141609 No Longer Active Yolande Lindsay MD PhD Active ATORVASTATIN CALCIUM 10 MG TABS 1 pill by mouth daily, for cholesterol 09/06 ATORVASTATIN CALCIUM 03567003119 Active Gab Padron MD Active CALCIUM 600+D PLUS MINERALS 600-400 MG-UNIT ORAL CHEW 1 tab by mouth daily CALCIUM CARBONATE-VIT D-MIN 15637089897 No Longer Active Yolande Lindsay MD PhD Active CYCLOBENZAPRINE HCL 10 MG TABS 1 tablet by mouth three times daily as needed for muscle spasm/pain CYCLOBENZAPRINE HCL 11083079946 Active Yolande Lindsay MD PhD Active ONDANSETRON 4 MG TBDP 1 q4h PRN nausea ONDANSETRON 24198175203 Active Yolande Lindsay MD PhD Active ADULT ASPIRIN EC LOW STRENGTH 81 MG TBEC Take 1 tablet by mouth daily 2014 ASPIRIN 13814025080 No Longer Active Yolande Lindsay MD PhD Active ZOFRAN ODT 4 MG TBDP 1 pill dissolved by mouth every 4 hours if needed for nausea ONDANSETRON 68866715862 No Longer Active Yolande Lindsay MD PhD Active CEFTIN 500 MG TAB 1 twice a day CEFUROXIME AXETIL 02280567969 No Longer Active Yolande Lindsay MD PhD Active ALBUTEROL SULFATE 0.083 % NEBU SOLN one vial per nebulizer every 4-6 hours as needed ALBUTEROL SULFATE 55548867437 No Longer Active Alexis Ordaz MD Active DOXYCYCLINE HYCLATE 100 MG CAP 1 cap by mouth twice daily DOXYCYCLINE HYCLATE 10203080569 No Longer Active Yolande Lindsay MD PhD Active CYCLOBENZAPRINE HCL 10 MG TABS 1/2 - 1 tab by mouth three times daily if needed for spasms/pain CYCLOBENZAPRINE HCL 54538474916 No Longer Active Yolande Lindsay MD PhD Active AZITHROMYCIN 250 MG TABS 2 pills on day 1, then 1 pill daily x 4 days AZITHROMYCIN 77486931399 No Longer Active Yolande Lindsay MD PhD Active XOPENEX 1.25 MG/3ML NEBU 1 neb every 4 hours if needed for cough/congestion LEVALBUTEROL HCL 96984958599 No Longer Active Yolande Lindsay MD PhD Active DOXYCYCLINE HYCLATE 100 MG TAB 1 tab twice a day for 14 days 2013 DOXYCYCLINE HYCLATE 22224366998 No Longer Active Yolande Lindsay MD PhD Active PREVACID 30 MG CPDR Take 1 tablet by mouth daily-PRN LANSOPRAZOLE 77273867514 No Longer Active Yolande Lindsay MD PhD Active PA VITAMIN D-3 2000 UNIT CAPS 1 CAP PO DAILY CHOLECALCIFEROL 56266099389 No Longer Active Yolande Lindsay MD PhD Active CEFDINIR 300 MG CAPS by mouth twice a day CEFDINIR 79179581103 No Longer Active Gab Padron MD Active TOPAMAX 50 MG TABS 1 PO twice daily TOPIRAMATE 84957117495 Active Yolande Lindsay MD PhD Active AZITHROMYCIN 250 MG TABS 2 po qd x 1 day, then 1 po qd x 4 days AZITHROMYCIN 14256179805 No Longer Active Yolande Lindsay MD PhD Active DICLOFENAC SODIUM 75 MG TBEC 1 tablet by q 12 hours PRN headaches DICLOFENAC SODIUM 20604045532 No Longer Active Yolande Lindsay MD PhD Active FLONASE 50 MCG/ACT SUSP 1 spray each nostril am and hs FLUTICASONE PROPIONATE 42252253832 No Longer Active Todd Callaway MD Active ANUSOL-HC 25 MG SUPPOSITORY 1 rectally twice a day as needed for hemorrhoids HYDROCORTISONE JAYDEN (RECTAL) 53216995497 No Longer Active Yolande Lindsay MD PhD Active ANUSOL-HC 25 MG SUPPOSITORY 1 suppository rectally each evening as needed for anal fissure HYDROCORTISONE JAYDEN (RECTAL) 60488772094 No Longer Active LONNIE Iglesias Active VALIUM 5 MG TAB 1 po 30 minutes prior to your MRI DIAZEPAM 63603561999 No Longer Active LONNIE Iglesias Active METHOCARBAMOL 750 MG TABS 1 PO QID PRN METHOCARBAMOL 34213852427 No Longer Active Daphne Wetzel MUSEUM ASSISTANT Active NITROSTAT 0.4 MG SUBL as directed NITROGLYCERIN 04648838367 No Longer Active Rodrigo Sarah APRN Active ROBAXIN-750 750 MG TABS 2 four times a day for 3 days as needed for muscle spasm, then 1 four times a day as needed METHOCARBAMOL 80089500299 No Longer Active Rodrigo Sarah APRN Active HYDROCODONE-ACETAMINOPHEN 5-325 MG TABS 1 q 4-6 hrs prn HYDROCODONE-ACETAMINOPHEN 71243822938 No Longer Active Silvestrellnacho Sarah APRN Active VERAPAMIL HCL CR 180 MG CR-TABS TAKE 1 TAB DAILY VERAPAMIL HCL 70005258624 No Longer Active Yolande Lindsay MD PhD Active BACTRIM DS 800-160 MG TAB 1 tab by mouth twice daily TRIMETHOPRIM-SULFAMETHOXAZOLE 10534155257 No Longer Active Yolande Lindsay MD PhD Active NEXIUM 40 MG PACK 1 by mouth daily ESOMEPRAZOLE MAGNESIUM 11563614951 No Longer Active Des Hines MD Active EPIPEN 2-CHARLETTE 0.3 MG/0.3ML OMARI as need for allergic reaction EPINEPHRINE 61931858054 Active Yolande Lindsay MD PhD Active NEXIUM 40 MG CPDR 1 PO Q D DAY ESOMEPRAZOLE MAGNESIUM 78576233147 No Longer Active Sadia Perry RN Active NEXIUM 40 MG PACK 1 by mouth daily NEXIUM 40 MG PACK ESOMEPRAZOLE MAGNESIUM Inactive VERAPAMIL HCL CR 180 MG CR-TABS TAKE 1 TAB DAILY VERAPAMIL HCL CR 180 MG CR-TABS VERAPAMIL HCL Inactive HYDROCODONE-ACETAMINOPHEN 5-325 MG TABS 1 q 4-6 hrs prn HYDROCODONE-ACETAMINOPHEN 5-325 MG TABS 802228 HYDROCODONE-ACETAMINOPHEN Inactive ROBAXIN-750 750 MG TABS 2 four times a day for 3 days as needed for muscle spasm, then 1 four times a day as needed ROBAXIN-750 750 MG TABS 586846 METHOCARBAMOL Inactive NITROSTAT 0.4 MG SUBL as directed NITROSTAT 0.4 MG SUBL NITROGLYCERIN Inactive METHOCARBAMOL 750 MG TABS 1 PO QID PRN METHOCARBAMOL 750 MG TABS 655675 METHOCARBAMOL Inactive VALIUM 5 MG TAB 1 po 30 minutes prior to your MRI VALIUM 5 MG TAB 028200 DIAZEPAM Inactive ANUSOL-HC 25 MG SUPPOSITORY 1 suppository rectally each evening as needed for anal fissure ANUSOL-HC 25 MG SUPPOSITORY 2987487 HYDROCORTISONE JAYDEN (RECTAL) Inactive ANUSOL-HC 25 MG SUPPOSITORY 1 rectally twice a day as needed for hemorrhoids ANUSOL-HC 25 MG SUPPOSITORY 1258500 HYDROCORTISONE JAYDEN (RECTAL) Inactive FLONASE 50 MCG/ACT SUSP 1 spray each nostril am and hs FLONASE 50 MCG/ACT SUSP FLUTICASONE PROPIONATE Inactive DICLOFENAC SODIUM 75 MG TBEC 1 tablet by q 12 hours PRN headaches DICLOFENAC SODIUM 75 MG TBEC 715650 DICLOFENAC SODIUM Inactive PA VITAMIN D-3 2000 UNIT CAPS 1 CAP PO DAILY PA VITAMIN D-3 2000 UNIT CAPS CHOLECALCIFEROL Inactive PREVACID 30 MG CPDR Take 1 tablet by mouth daily-PRN PREVACID 30 MG CPDR 199045 LANSOPRAZOLE Inactive DOXYCYCLINE HYCLATE 100 MG TAB 1 tab twice a day for 14 days 2013 DOXYCYCLINE HYCLATE 100 MG TAB 6221458 DOXYCYCLINE HYCLATE Inactive XOPENEX 1.25 MG/3ML NEBU 1 neb every 4 hours if needed for cough/congestion XOPENEX 1.25 MG/3ML NEBU 902783 LEVALBUTEROL HCL Inactive CYCLOBENZAPRINE HCL 10 MG TABS 1/2 - 1 tab by mouth three times daily if needed for spasms/pain CYCLOBENZAPRINE HCL 10 MG TABS 522005 CYCLOBENZAPRINE HCL Inactive ALBUTEROL SULFATE 0.083 % NEBU SOLN one vial per nebulizer every 4-6 hours as needed ALBUTEROL SULFATE 0.083 % NEBU SOLN 218720 ALBUTEROL SULFATE Inactive CEFTIN 500 MG TAB 1 twice a day CEFTIN 500 MG TAB 106264 CEFUROXIME AXETIL Inactive ZOFRAN ODT 4 MG TBDP 1 pill dissolved by mouth every 4 hours if needed for nausea ZOFRAN ODT 4 MG TBDP 255520 ONDANSETRON Inactive ADULT ASPIRIN EC LOW STRENGTH 81 MG TBEC Take 1 tablet by mouth daily 2014 ADULT ASPIRIN EC LOW STRENGTH 81 MG TBEC 997499 ASPIRIN Inactive CALCIUM 600+D PLUS MINERALS 600-400 [...] or an apple NIACIN 500 MG TABS 359209 NIACIN Inactive NIASPAN 500 MG ORAL CR-TABS 1 pill nightly x 1 week, then 2 pills nightly x 1 week, then 3 pills nightly x 1 week, then 4 pills nightly NIASPAN 500 MG ORAL CR-TABS NIACIN (ANTIHYPERLIPIDEMIC) Inactive OXYCODONE HCL 5 MG ORAL CAPS 1 TAB PO Q HS OXYCODONE HCL 5 MG ORAL CAPS 3246972 OXYCODONE HCL Inactive FLUTICASONE PROPIONATE 50 MCG/ACT SUSP 1 to 2 sprays each nostril daily 04/21 FLUTICASONE PROPIONATE 50 MCG/ACT SUSP 316942 FLUTICASONE PROPIONATE Inactive POLYTRIM 15169-6.1 UNIT/ML-% SOLN 1 gtt to affected eye q3h x 7 days POLYTRIM 87860-5.1 UNIT/ML-% SOLN 716631 POLYMYXIN B- TRIMETHOPRIM Inactive CHERATUSSIN AC 100-10 MG/5ML SYRP 1 tsp by mouth every 4 hours as needed for cough CHERATUSSIN AC 100-10 MG/5ML SYRP 638085 GUAIFENESIN-CODEINE Inactive LEVOTHYROXINE SODIUM 75 MCG TABS Take 1 tab daily LEVOTHYROXINE SODIUM 75 MCG TABS 811721 LEVOTHYROXINE SODIUM Inactive BACTRIM DS 800-160 MG TAB 1 tab by mouth twice daily BACTRIM DS 800-160 MG TAB 791831 TRIMETHOPRIM-SULFAMETHOXAZOLE Inactive AZITHROMYCIN 250 MG TABS 2 po qd x 1 day, then 1 po qd x 4 days AZITHROMYCIN 250 MG TABS 5354919 AZITHROMYCIN Inactive CEFDINIR 300 MG CAPS by mouth twice a day CEFDINIR 300 MG CAPS 756751 CEFDINIR Inactive AZITHROMYCIN 250 MG TABS 2 pills on day 1, then 1 pill daily x 4 days AZITHROMYCIN 250 MG TABS 7267508 AZITHROMYCIN Inactive DOXYCYCLINE HYCLATE 100 MG CAP 1 cap by mouth twice daily DOXYCYCLINE HYCLATE 100 MG CAP 8946222 DOXYCYCLINE HYCLATE Inactive FUROSEMIDE 20 MG TABS 1 pill by mouth daily, for edema FUROSEMIDE 20 MG TABS 056189 FUROSEMIDE Inactive AZITHROMYCIN 250 MG TABS 2 po qd x 1 day, then 1 po qd x 4 days AZITHROMYCIN 250 MG TABS 3026775 AZITHROMYCIN Inactive CEFTIN 500 MG TAB 1 twice a day CEFTIN 500 MG TAB 085324 CEFUROXIME AXETIL Inactive CEFDINIR 300 MG CAPS 1 po BID x 10 days CEFDINIR 300 MG CAPS 460464 CEFDINIR Inactive BACTRIM DS 800-160 MG TAB 1 tab by mouth twice daily BACTRIM DS 800-160 MG TAB 111369 TRIMETHOPRIM-SULFAMETHOXAZOLE Inactive Immunizations Vaccine Administration Date Value Standard Description Seasonal influenza vaccine, injectable, containing preservative, for > 3 years old (Afluria, FluLaval, Fluzone, Fluvirin, Fluarix, Agriflu(>=18 yo)) Fluzone (>3 yrs.) [JAX107] Influenza, seasonal, injectable influenza immunization (Flu Vax) has been administered Influenza - Unspecified Formulation [CVX88] influenza virus vaccine, unspecified formulation Seasonal influenza vaccine, injectable, containing preservative, for > 3 years old (Afluria, FluLaval, Fluzone, Fluvirin, Fluarix, Agriflu(>=18 yo)) Fluzone (>3 yrs.) [SPS862] Influenza, seasonal, injectable pneumococcal immunization administered Pneumovax 23 [CVX33] pneumococcal polysaccharide vaccine, 23 valent dT (Diphtheria and Tetanus) booster given given Td(adult) unspecified formulation Boostrix (Tetanus toxoid, reduced diphtheria toxoid and acellular pertussis vaccine, adsorbed), booster Boostrix [RZM341] tetanus toxoid, reduced diphtheria toxoid, and acellular [...] Panel - Chemistry sodium, serum 142 mmol/L 401-304 9018/06/30 potassium, serum 4.4 mmol/L 3.5-5.2 chloride, serum 108 mmol/L 98-107 carbon dioxide, venous blood 25.1 mmol/L 21.0-32.0 blood glucose 82 mg/dL 65-110 calcium, serum 9.1 mg/dL 8.5-10.1 urea nitrogen, blood 18 mg/dL 7-18 creatinine, serum 1.31 mg/dL 0.55-1.30 Lab Report: [facility] Advanced Lipid and Inlammation Panel /97227 - Chemistry cholesterol, serum 148 mg/dL 996-886 6729/09/02 HDL cholesterol, serum 55 mg/dL > OR=46 [...] (L) - Chemistry sodium, serum 145 mmol/L 336-346 2745/09/02 potassium, serum 4.6 mmol/L 3.5-5.2 chloride, serum [...] Rate - Chemistry sodium, serum 139 mmol/L 462-387 9713/03/24 carbon dioxide, venous blood 22.4 mmol/L 21.0-32.0 [...] ... - Chemistry sodium, serum 143 mmol/L 484-691 7146/05/02 carbon dioxide, venous blood 25.6 mmol/L 21.0-32.0 [...] Negative mg/dL Negative sodium, serum 142 mmol/L 884-295 1483/07/18 carbon dioxide, venous blood 27.8 mmol/L 21.0-32.0 [...] mg/dL Encounters Code Encounter Date Provider Facility CPT-93539 Level 3 Est. Patient 10:29:41 CDT Rodrigo Sarah [facility] CPT-77637 Level 4 Est. Patient 17:51:05 CDT Gab Padron MD [facility] CPT-05819 Level 3 Est. Patient 14:18:08 CDT Gab Padron MD [facility] CPT-01219 Level 4 Est. Patient 10:18:54 CDT Gab Padron MD [facility] CPT-91068 Level 3 Est. Patient 11:30:07 CDT Rodrigo Sarah [facility] CPT-75358 Level 4 Est. Patient 21:02:30 UNIX CONSULTANT Gab Padron MD [facility] CPT-34582 Level 3 Est. Patient 11:02:19 UNIX CONSULTANT Gab Padron MD [facility] CPT-55358 Level 4 Est. Patient 22:24:31 UNIX CONSULTANT Gab Padron MD [facility] CPT-60535 Level 3 Est. Patient 18:33:46 UNIX CONSULTANT Gab Padron MD [facility] CPT-72651 Level 3 Est. Patient 16:19:11 CDT Yolande Lindsay MD, PhD [facility] CPT-35740 Level 3 Est. Patient 18:59:14 CDT Yolande Lindsay MD [facility] CPT-46147 Level 4 Est. Patient 21:29:26 CDT Yolande Lindsay MD [facility]-70994 Level 3 Est. Patient 07:37:45 CDT Yolande Lindsay MD [facility]-57970 Level 3 Est. Patient 17:03:46 CDT Yolande Lindsay MD [facility]-57488 Level 4 Est. Patient 20:02:13 UNIX CONSULTANT Yolande Lindsay MD [facility]-94576 Level 3 Est. Patient 16:02:07 UNIX CONSULTANT Alexis Ordaz MD [facility]-62343 Level 3 Est. Patient 12:41:24 UNIX CONSULTANT Yolande Lindsay MD [facility]-29511 Level 3 Est. Patient 15:41:20 UNIX CONSULTANT Yolande Lindsay MD [facility]-05474 Level 3 Est. Patient 13:20:02 UNIX CONSULTANT Yolande Lindsay MD [facility]-23675 Level 3 Est. Patient 15:00:38 CDT Jared Og MD [facility]-31243 Level 3 Est. Patient 10:22:32 CDT Yolande Lindsay MD [facility] CPT-27434 Level 3 Est. Patient 17:12:58 CDT Yolande Lindsay MD [facility]-52916 Level 4 Est. Patient 13:30:58 CDT Yolande Lindsay MD [facility] CPT-63379 Level 4 New Patient 09:02:42 CDT Jared Og MD [facility]-94760 Level 3 Est. Patient 08:19:07 CDT Yolande Lindsay MD [facility]-66519 Level 3 Est. Patient 12:00:13 UNIX CONSULTANT Gab Padron MD [facility]-41292 Level 3 Est. Patient 16:15:23 UNIX CONSULTANT Yolande Lindsay MD [facility]69303 Level 2 Est. Patient 19:47:15 CDT Yolande Lindsay MD [facility]-69145 Level 3 Est. Patient 21:38:31 CDT Yolande Lindsay MD [facility]-92513 Level 3 Est. Patient 10:25:12 CDT Adiel PERAZA [facility]-37328 Level 4 Est. Patient 10:51:58 CDT Yolande Lindsay MD [facility]-64965 Level 3 Est. Patient 14:04:55 UNIX CONSULTANT Rodrigo Sarah [facility]-99122 Level 3 Est. Patient 10:46:35 UNIX CONSULTANT Rodrigo Sarah [facility]-86655 Level 3 Est. Patient 14:24:37 UNIX CONSULTANT Yolande Lindsay MD [facility]-78343 Level 3 Est. Patient 17:41:58 UNIX CONSULTANT Yolande Lindsay MD [facility]-38191 Level 2 Est. Patient 22:01:41 UNIX CONSULTANT Rodrigo Sarah [facility]-65601 Level 2 Est. Patient 22:01:11 UNIX CONSULTANT Rodrigo Sarah [facility]-76569 Level 3 Est. Patient 10:12:29 UNIX CONSULTANT Rodrigo Sarah [facility]-85768 Level 3 Est. Patient 11:05:44 CDT Alexis rOdaz MD [facility] CPT-32172 Level 3 Est. Patient 14:57:20 CDT Yolande Lindsay MD [facility] CPT-13809 Level 3 Est. Patient 14:40:57 CDT Yolande Lindsay MD [facility] CPT-69587 Level 3 Est. Patient 20:55:40 CDT Yolande Lindsay MD [facility] CPT-34912 Level 3 Est. Patient 12:42:38 UNIX CONSULTANT Yolande Lindsay MD [facility] CPT-25925 Level 3 Est. Patient 11:54:49 UNIX CONSULTANT Des Hines MD [facility] CPT-79758 Level 3 Est. Patient 17:06:38 CDT Dewayne PERAZA [facility] Procedures Code Procedure Name Date Entry Date Standard Description CPT-31563 Chest 2V Frontal and Lat - XRAY USE ONLY 10:48:51 CDT CPT-26691 LS spine comp w obliq 13:28:00 UNIX CONSULTANT CPT-J1040 Depo Medrol 80 mg (Methyl Prednisolone Acetate) 10:51: 28 UNIX CONSULTANT CPT-J1100 Decadron 8mg (Dexamethasone) 10:51:28 UNIX CONSULTANT CPT-85103 Abx/Therapy Injection 10:51:28 UNIX CONSULTANT CPT-J1100 Decadron 8mg (Dexamethasone) 21:02:30 UNIX CONSULTANT CPT-J1040 Depo Medrol 80 mg (Methyl Prednisolone Acetate) 21:02: 30 UNIX CONSULTANT [id number] Event Monitor - MC Transmission 09:12:32 CDT 08/06 [id number] Event Monitor - MC review and interp 09:12:32 CDT [id number] Event Monitor - MC recording 09:12:32 CDT CPT-71650 EKG Trac and Interp 16:50:22 CDT CPT-J1030 Depo Medrol 40 mg (Methyl Prednisolone Acetate) 17:05: 54 CDT CPT-J1100 Decadron 4mg (Dexamethasone) 17:05:54 CDT CPT-04229 Abx/Therapy Injection 17:05:54 CDT CPT-J1100 Decadron 4mg (Dexamethasone) 16:55:28 CDT CPT-J1030 Depo Medrol 40 mg (Methyl Prednisolone Acetate) 16:55: 28 CDT CPT-57589 Ankle Complete - Min 3V 15:58:50 CDT CPT-99950 Knee 3V 15:58:50 CDT CPT-77041 Hip comp min 2V 15:58:50 CDT CPT-J2270 Morphine Sulfate 10 mg 14:25:44 UNIX CONSULTANT CPT-J2550 Phenergan 12.5 mg (Promethazine) 14:25:44 UNIX CONSULTANT CPT-67832 Abx/Therapy Injection 14:25:44 UNIX CONSULTANT CPT-J2550 Phenergan 12.5 mg (Promethazine) 14:08:03 UNIX CONSULTANT CPT-J2270 Morphine Sulfate 10 mg 14:08:03 UNIX CONSULTANT CPT-97330 Bladder Scan 15:00:38 CDT CPT-TCMM Transitional Care Mgmt-Moderate 09:52:22 CDT CPT-J1030 Depo Medrol 40 mg (Methyl Prednisolone Acetate) 10:55: 18 CDT CPT-J1100 Decadron 4mg (Dexamethasone) 10:55:18 CDT CPT-36298 Abx/Therapy Injection 10:55:18 CDT CPT-J1030 Depo Medrol 40 mg (Methyl Prednisolone Acetate) 10:22: 32 CDT CPT-J1100 Decadron 4mg (Dexamethasone) 10:22:32 CDT CPT-69154 Postop F/U Visit 14:37:13 CDT CPT-40877 Ankle Complete - Min 3V 17:11:58 CDT CPT-10228 Foot comp min 3V 17:11:58 CDT CPT-82149 Bladder Scan 09:56:58 CDT CPT-70896 Postop F/U Visit 09:56:58 CDT CPT-34587 Cystoscopy 09:02:42 CDT CPT-07174 Bladder Scan 09:02:42 CDT CPT-68078 Abd single AP View 16:00:35 CDT CPT-06441 Administration single or combination vaccine inc oral 10 :15:43 CDT CPT-42482 Influenza split virus > age 3 10:15:43 CDT CPT-77870 Nail Avulsion 09:24:57 CDT CPT-OV Office Visit 11:15:41 CDT CPT-59617 Abx/Therapy Injection 10:51:30 CDT CPT-J3301 Kenalog 40 mg (Triamcinolone Acetonide) 10:25:12 CDT CPT-J1100 Decadron 4mg (Dexamethasone) 10:25:12 CDT CPT-46108 Anoscopy diagnostic 10:36:12 CDT CPT-OV Office Visit 15:34:31 CDT CPT-18380 Abx/Therapy Injection 08:21:15 UNIX CONSULTANT CPT-J1885 Toradol 60 mg (Ketorolac) 10:46:35 UNIX CONSULTANT CPT-OV Office Visit 19:51:16 UNIX CONSULTANT CPT-96037 Spec Collection and Handling Fee 14:34:18 UNIX CONSULTANT CPT-PV Prev. Care Visit 14:19:18 UNIX CONSULTANT CPT-24574 Postop F/U Visit 14:47:51 UNIX CONSULTANT CPT-86474 Postop F/U Visit 15:15:14 UNIX CONSULTANT CPT-41373 Postop F/U Visit 14:41:43 CDT CPT-97157 Postop F/U Visit 15:47:46 CDT CPT-OV Office Visit 15:27:23 CDT CPT-OV Office Visit 17:20:34 CDT CPT-21473 Abx/Therapy Injection 15:05:57 CDT CPT-J1100 Decadron 8mg (Dexamethasone) 14:44:57 CDT CPT-J1040 Depo Medrol 80 mg (Methyl Prednisolone Acetate) 14:44: 57 CDT CPT-JTINJ Joint Injection 10:17:37 CDT CPT-40740 Administration 2+ single or combination vaccines inc oral 13:01:46 UNIX CONSULTANT CPT-27288 Administration single or combination vaccine inc oral 13 :01:46 UNIX CONSULTANT CPT-62579 Pneumovax 13:01:46 UNIX CONSULTANT CPT-41858 Influenza split virus > age 3 13:01:46 UNIX CONSULTANT CPT-79378 Administration single or combination vaccine inc oral 08 :56:49 CDT CPT-09628 Tdap 08:56:49 CDT
--- OUTSIDE RECORDS SUMMARY | 2017-03-21 21:08 | XMS REPORT | Clinical Summary ---
Author Author Admin, MARGRET Organization [facility] Address Unknown Phone Unavailable Allergies, Adverse Reactions, Alerts Allergy Name Reaction Description Start Date Severity Status Provider VALENTIN Critical Active Rodrigo Montemayorl [employer] INSPECTOR CHLORHEXIDINE GLUCONATE tongue and gums swollen Critical Active Hoa Kabaford RMA NORFLEX Rash Critical Active Rowenaina Farshadzell [employer] INSPECTOR TRAZODONE HCL sees things Critical Active Dewayne PERAZA PENICILLIN rash Critical Active Dewayne PERAZA Conditions or Problems Problem Name Problem Code Onset Date Status Entry Date Provider Comment Standard Description Annotate FOOT PAIN, RIGHT 729.5 Resolved Yolande Lidnsay MD PhD Pain in limb ANKLE PAIN, [...] of 412 Active Hoa Otto [facility] Old myocardial infarction Pelvic pain 789.09 [...] daily for 2 days end 02/05/17 PREDNISONE 34379715484 Active Gab Padron MD Active ZANTAC 150 MG TAB 1 by mouth twice daily RANITIDINE HCL 97928031572 Active Gab Padron MD Active TRIAMCINOLONE ACETONIDE 0.1 % CREA Apply to affected area 3 times daily for up to 2 weeks TRIAMCINOLONE ACETONIDE 74914844775 Active Tisha Lambert [employer] INSPECTOR Active LISINOPRIL 40 MG TABS 1 tablet by mouth daily LISINOPRIL 02049884720 Active Tisha Fausto [employer]IT[employer] INSPECTOR Active IBUPROFEN 600 MG TAB 1 tablet by mouth every 6 hours for 7 days, then 1 tablet every 6 hours as needed. Take with food IBUPROFEN 52944691499 No Longer Active Tisha Lambert APRN Active PREDNISONE 20 MG TAB 1 tab twice daily for 3 day, then one daily for three days PREDNISONE 00998818073 No Longer Active Tisha Lambert APRN Active TRIAMCINOLONE ACETONIDE 0.1 % CREA apply bid sparingly to rash TRIAMCINOLONE ACETONIDE 02867912510 No Longer Active Gab Padron MD Active TRAMADOL HCL 50 MG TABS 1 tab po every 6 hrs prn pain TRAMADOL HCL 31216605475 No Longer Active Gab Padron MD Active BACTRIM DS 800-160 MG TAB 1 tab by mouth twice daily TRIMETHOPRIM-SULFAMETHOXAZOLE 35064527404 No Longer Active Tisha Lambert APRN Active ADVAIR DISKUS 250-50 MCG/DOSE AEPB 1 puff BID FLUTICASONE-SALMETEROL 31810729193 No Longer Active Todd Callaway MD Active ONDANSETRON 4 MG TBDP 1 q4h PRN nausea ONDANSETRON 96941555721 No Longer Active LONNIE Iglesias Active FISH OIL 1000 MG CAPS 3 pills daily OMEGA-3 FATTY ACIDS 97487420398 No Longer Active LONNIE Iglesias Active CETIRIZINE HCL 10 MG ORAL TABS 1 po qd PRN Allergies CETIRIZINE HCL 64044508354 Active Gab Padron MD Active CLARITIN 10 MG TAB 1 tablet by mouth daily as needed for allergies LORATADINE 22158742087 No Longer Active Gab Padron MD Active PREDNISONE 20 MG TAB take 3 tabs daily for 3 days, 2 tabs daily for 3 days, 1 tab daily for 3 days, 1/2 tab daily for 3 days PREDNISONE 55040480344 No Longer Active Tisha Lambert APRN Active PREDNISONE 20 MG TAB 2 tabs daily for 3 days, 1 tab daily for 3 days, 1/2 tab daily for 2 days PREDNISONE 50092632603 No Longer Active Gab Padron MD Active ZOFRAN ODT 4 MG TBDP 1 po q6hr PRN Nausea ONDANSETRON 81565061158 Active Gab Padron MD Active BACTRIM DS 800-160 MG TAB 1 tab by mouth twice daily TRIMETHOPRIM-SULFAMETHOXAZOLE 10562496191 No Longer Active Gab Padron MD Active LEVOTHYROXINE SODIUM 75 MCG TABS Take 1 tab daily LEVOTHYROXINE SODIUM 39648421941 No Longer Active Mariana FLEMING Active SYNTHROID 88 MCG ORAL TABS Take one by mouth daily LEVOTHYROXINE SODIUM 18905335084 Active Tisha Lambert APRN Active CHERATUSSIN AC 100-10 MG/5ML SYRP 1 tsp by mouth every 4 hours as needed for cough GUAIFENESIN-CODEINE 07669380019 No Longer Active Gab Padron MD Active POLYTRIM 24986-6.1 UNIT/ML-% SOLN 1 gtt to affected eye q3h x 7 days POLYMYXIN B-TRIMETHOPRIM 16916147426 No Longer Active Gab Padron MD Active FLUTICASONE PROPIONATE 50 MCG/ACT SUSP 1 to 2 sprays each nostril daily 04/21 FLUTICASONE PROPIONATE 95207603270 No Longer Active Gab Padron MD Active TRILEPTAL 600 MG TABS Take one 1 tablet in Am and 1 tablet at night OXCARBAZEPINE 93124332307 Active Gab Padron MD Active CEFDINIR 300 MG CAPS 1 po BID x 10 days CEFDINIR 60666072556 No Longer Active Rodrigo Sarah APRN Active CEFTIN 500 MG TAB 1 twice a day CEFUROXIME AXETIL 18387530052 No Longer Active Gab Padron MD Active AZITHROMYCIN 250 MG TABS 2 po qd x 1 day, then 1 po qd x 4 days AZITHROMYCIN 27101954986 No Longer Active Rodrigo Sarah APRN Active OXYCODONE HCL 5 MG ORAL CAPS 1 TAB PO Q HS OXYCODONE HCL 38131929636 No Longer Active Rodrigo Sarah APRN Active NIASPAN 500 MG ORAL CR-TABS 1 pill nightly x 1 week, then 2 pills nightly x 1 week, then 3 pills nightly x 1 week, then 4 pills nightly NIACIN (ANTIHYPERLIPIDEMIC) 93563061084 No Longer Active Rodrigo Sarah APRN Active NIACIN 500 MG TABS 1 pill by mouth nightly x 1 week, then 2 pills x 1 week, then 3 pills x 1 week, then 4 pills nightly - take after evening meal, with applesauce or an apple NIACIN 70087530278 No Longer Active Yolande Lindsay MD PhD Active FUROSEMIDE 20 MG TAB 1 tablet by mouth daily FUROSEMIDE 42715606268 Active Gab Padron MD Active FUROSEMIDE 20 MG TABS 1 pill by mouth daily, for edema FUROSEMIDE 72001786979 No Longer Active Yolande Lindsay MD PhD Active ATORVASTATIN CALCIUM 10 MG TABS 1 pill by mouth daily, for cholesterol 09/06 ATORVASTATIN CALCIUM 78755287841 Active Gab Padron MD Active CALCIUM 600+D PLUS MINERALS 600-400 MG-UNIT ORAL CHEW 1 tab by mouth daily CALCIUM CARBONATE-VIT D-MIN 93056511027 No Longer Active Yolande Lindsay MD PhD Active CYCLOBENZAPRINE HCL 10 MG TABS 1 tablet by mouth three times daily as needed for muscle spasm/pain CYCLOBENZAPRINE HCL 13885783676 Active Yolande Lindsay MD PhD Active ADULT ASPIRIN EC LOW STRENGTH 81 MG TBEC Take 1 tablet by mouth daily 2014 ASPIRIN 36882123727 No Longer Active Yolande Lindsay MD PhD Active ZOFRAN ODT 4 MG TBDP 1 pill dissolved by mouth every 4 hours if needed for nausea ONDANSETRON 36402820432 No Longer Active Yolande Lindsay MD PhD Active CEFTIN 500 MG TAB 1 twice a day CEFUROXIME AXETIL 03037093179 No Longer Active Yolande Lindsay MD PhD Active ALBUTEROL SULFATE 0.083 % NEBU SOLN one vial per nebulizer every 4-6 hours as needed ALBUTEROL SULFATE 91196167960 No Longer Active Alexis Ordaz MD Active DOXYCYCLINE HYCLATE 100 MG CAP 1 cap by mouth twice daily DOXYCYCLINE HYCLATE 61669949612 No Longer Active Yolande Lindsay MD PhD Active CYCLOBENZAPRINE HCL 10 MG TABS 1/2 - 1 tab by mouth three times daily if needed for spasms/pain CYCLOBENZAPRINE HCL 71606912977 No Longer Active Yolande Lindsay MD PhD Active AZITHROMYCIN 250 MG TABS 2 pills on day 1, then 1 pill daily x 4 days AZITHROMYCIN 21420443137 No Longer Active Yolande Lindsay MD PhD Active XOPENEX 1.25 MG/3ML NEBU 1 neb every 4 hours if needed for cough/congestion LEVALBUTEROL HCL 33268260732 No Longer Active Yolande Lindsay MD PhD Active DOXYCYCLINE HYCLATE 100 MG TAB 1 tab twice a day for 14 days 2013 DOXYCYCLINE HYCLATE 33929212941 No Longer Active Yolande Lindsay MD PhD Active PREVACID 30 MG CPDR Take 1 tablet by mouth daily-PRN LANSOPRAZOLE 05276181727 No Longer Active Yolande Lindsay MD PhD Active PA VITAMIN D-3 2000 UNIT CAPS 1 CAP PO DAILY CHOLECALCIFEROL 91763385104 No Longer Active Yolande Lindsay MD PhD Active CEFDINIR 300 MG CAPS by mouth twice a day CEFDINIR 33148382809 No Longer Active Gab Padron MD Active TOPAMAX 50 MG TABS 1 PO twice daily TOPIRAMATE 10625650799 Active Yolande Lindsay MD PhD Active AZITHROMYCIN 250 MG TABS 2 po qd x 1 day, then 1 po qd x 4 days AZITHROMYCIN 19508494127 No Longer Active Yolande Lindsay MD PhD Active DICLOFENAC SODIUM 75 MG TBEC 1 tablet by q 12 hours PRN headaches DICLOFENAC SODIUM 71362349554 No Longer Active Yolande Lindsay MD PhD Active FLONASE 50 MCG/ACT SUSP 1 spray each nostril am and hs FLUTICASONE PROPIONATE 15602377016 No Longer Active Todd Callaway MD Active ANUSOL-HC 25 MG SUPPOSITORY 1 rectally twice a day as needed for hemorrhoids HYDROCORTISONE JAYDEN (RECTAL) 37480586837 No Longer Active Yolande Lindsay MD PhD Active ANUSOL-HC 25 MG SUPPOSITORY 1 suppository rectally each evening as needed for anal fissure HYDROCORTISONE JAYDEN (RECTAL) 93400949503 No Longer Active LONNIE Iglesias Active VALIUM 5 MG TAB 1 po 30 minutes prior to your MRI DIAZEPAM 67681408781 No Longer Active LONNIE Iglesias Active METHOCARBAMOL 750 MG TABS 1 PO QID PRN METHOCARBAMOL 36067341893 No Longer Active Daphne Wetzel [employer]ITES INSPECTOR Active NITROSTAT 0.4 MG SUBL as directed NITROGLYCERIN 78261079010 No Longer Active Rodrigo Sarah APRN Active ROBAXIN-750 750 MG TABS 2 four times a day for 3 days as needed for muscle spasm, then 1 four times a day as needed METHOCARBAMOL 21527049234 No Longer Active Rodrigo Sarah APRN Active HYDROCODONE-ACETAMINOPHEN 5-325 MG TABS 1 q 4-6 hrs prn HYDROCODONE-ACETAMINOPHEN 39620440329 No Longer Active Silvestrellnacho Sarah APRN Active VERAPAMIL HCL CR 180 MG CR-TABS TAKE 1 TAB DAILY VERAPAMIL HCL 05597305753 No Longer Active Yolande Lindsay MD PhD Active BACTRIM DS 800-160 MG TAB 1 tab by mouth twice daily TRIMETHOPRIM-SULFAMETHOXAZOLE 57890948743 No Longer Active Yolande Lindsay MD PhD Active NEXIUM 40 MG PACK 1 by mouth daily ESOMEPRAZOLE MAGNESIUM 83954972821 No Longer Active Des Hines MD Active EPIPEN 2-CHARLETTE 0.3 MG/0.3ML OMARI as need for allergic reaction EPINEPHRINE 67233797472 Active Yolande Lindsay MD PhD Active NEXIUM 40 MG CPDR 1 PO Q D DAY ESOMEPRAZOLE MAGNESIUM 95102397902 No Longer Active Sadia Orlando RN Active NEXIUM 40 MG PACK 1 by mouth daily NEXIUM 40 MG PACK ESOMEPRAZOLE MAGNESIUM Inactive VERAPAMIL HCL CR 180 MG CR-TABS TAKE 1 TAB DAILY VERAPAMIL HCL CR 180 MG CR-TABS VERAPAMIL HCL Inactive HYDROCODONE-ACETAMINOPHEN 5-325 MG TABS 1 q 4-6 hrs prn HYDROCODONE-ACETAMINOPHEN 5-325 MG TABS 544078 HYDROCODONE-ACETAMINOPHEN Inactive ROBAXIN-750 750 MG TABS 2 four times a day for 3 days as needed for muscle spasm, then 1 four times a day as needed ROBAXIN-750 750 MG TABS 162737 METHOCARBAMOL Inactive NITROSTAT 0.4 MG SUBL as directed NITROSTAT 0.4 MG SUBL 115603 NITROGLYCERIN Inactive METHOCARBAMOL 750 MG TABS 1 PO QID PRN METHOCARBAMOL 750 MG TABS 932339 METHOCARBAMOL Inactive VALIUM 5 MG TAB 1 po 30 minutes prior to your MRI VALIUM 5 MG TAB 510385 DIAZEPAM Inactive ANUSOL-HC 25 MG SUPPOSITORY 1 suppository rectally each evening as needed for anal fissure ANUSOL-HC 25 MG SUPPOSITORY 5855718 HYDROCORTISONE JAYDEN (RECTAL) Inactive ANUSOL-HC 25 MG SUPPOSITORY 1 rectally twice a day as needed for hemorrhoids ANUSOL-HC 25 MG SUPPOSITORY 0331129 HYDROCORTISONE JAYDEN (RECTAL) Inactive FLONASE 50 MCG/ACT SUSP 1 spray each nostril am and hs FLONASE 50 MCG/ACT SUSP 5547961 FLUTICASONE PROPIONATE Inactive DICLOFENAC SODIUM 75 MG TBEC 1 tablet by q 12 hours PRN headaches DICLOFENAC SODIUM 75 MG TBEC 990585 DICLOFENAC SODIUM Inactive PA VITAMIN D-3 2000 UNIT CAPS 1 CAP PO DAILY PA VITAMIN D-3 2000 UNIT CAPS CHOLECALCIFEROL Inactive PREVACID 30 MG CPDR Take 1 tablet by mouth daily-PRN PREVACID 30 MG CPDR 521082 LANSOPRAZOLE Inactive DOXYCYCLINE HYCLATE 100 MG TAB 1 tab twice a day for 14 days 2013 DOXYCYCLINE HYCLATE 100 MG TAB 6374764 DOXYCYCLINE HYCLATE Inactive XOPENEX 1.25 MG/3ML NEBU 1 neb every 4 hours if needed for cough/congestion XOPENEX 1.25 MG/3ML NEBU 841251 LEVALBUTEROL HCL Inactive CYCLOBENZAPRINE HCL 10 MG TABS 1/2 - 1 tab by mouth three times daily if needed for spasms/pain CYCLOBENZAPRINE HCL 10 MG TABS 785413 CYCLOBENZAPRINE HCL Inactive ALBUTEROL SULFATE 0.083 % NEBU SOLN one vial per nebulizer every 4-6 hours as needed ALBUTEROL SULFATE 0.083 % NEBU SOLN 373921 ALBUTEROL SULFATE Inactive CEFTIN 500 MG TAB 1 twice a day CEFTIN 500 MG TAB 312793 CEFUROXIME AXETIL Inactive ZOFRAN ODT 4 MG TBDP 1 pill dissolved by mouth every 4 hours if needed for nausea ZOFRAN ODT 4 MG TBDP 559601 ONDANSETRON Inactive ADULT ASPIRIN EC LOW STRENGTH 81 MG TBEC Take 1 tablet by mouth daily 2014 ADULT ASPIRIN EC LOW STRENGTH 81 MG TBEC 821220 ASPIRIN Inactive CALCIUM 600+D PLUS MINERALS 600-400 [...] or an apple NIACIN 500 MG TABS 031660 NIACIN Inactive NIASPAN 500 MG ORAL CR-TABS 1 pill nightly x 1 week, then 2 pills nightly x 1 week, then 3 pills nightly x 1 week, then 4 pills nightly NIASPAN 500 MG ORAL CR-TABS NIACIN (ANTIHYPERLIPIDEMIC) Inactive OXYCODONE HCL 5 MG ORAL CAPS 1 TAB PO Q HS OXYCODONE HCL 5 MG ORAL CAPS 1755426 OXYCODONE HCL Inactive FLUTICASONE PROPIONATE 50 MCG/ACT SUSP 1 to 2 sprays each nostril daily 04/21 FLUTICASONE PROPIONATE 50 MCG/ACT SUSP 8826618 FLUTICASONE PROPIONATE Inactive POLYTRIM 09328-6.1 UNIT/ML-% SOLN 1 gtt to affected eye q3h x 7 days POLYTRIM 71059-5.1 UNIT/ML-% SOLN 082023 POLYMYXIN B- TRIMETHOPRIM Inactive CHERATUSSIN AC 100-10 MG/5ML SYRP 1 tsp by mouth every 4 hours as needed for cough CHERATUSSIN AC 100-10 MG/5ML SYRP 180164 GUAIFENESIN-CODEINE Inactive LEVOTHYROXINE SODIUM 75 MCG TABS Take 1 tab daily LEVOTHYROXINE SODIUM 75 MCG TABS 014668 LEVOTHYROXINE SODIUM Inactive CLARITIN 10 MG TAB 1 tablet by mouth daily as needed for allergies CLARITIN 10 MG TAB 392243 LORATADINE Inactive FISH OIL 1000 MG CAPS 3 pills daily FISH OIL 1000 MG CAPS OMEGA-3 FATTY ACIDS Inactive ONDANSETRON 4 MG TBDP 1 q4h PRN nausea ONDANSETRON 4 MG TBDP 701466 ONDANSETRON Inactive ADVAIR DISKUS 250-50 MCG/DOSE AEPB 1 puff BID ADVAIR DISKUS 250-50 MCG/DOSE AEPB FLUTICASONE-SALMETEROL Inactive TRAMADOL HCL 50 MG TABS 1 tab po every 6 hrs prn pain TRAMADOL HCL 50 MG TABS 448830 TRAMADOL HCL Inactive TRIAMCINOLONE ACETONIDE 0.1 % CREA apply bid sparingly to rash TRIAMCINOLONE ACETONIDE 0.1 % CREA 3795529 TRIAMCINOLONE ACETONIDE Inactive PREDNISONE 20 MG TAB 1 tab twice daily for 3 day, then one daily for three days PREDNISONE 20 MG TAB 872590 PREDNISONE Inactive IBUPROFEN 600 MG TAB 1 tablet by mouth every 6 hours for 7 days, then 1 tablet every 6 hours as needed. Take with food IBUPROFEN 600 MG TAB 217898 IBUPROFEN Inactive BACTRIM DS 800-160 MG TAB 1 tab by mouth twice daily BACTRIM DS 800-160 MG TAB 19820606 TRIMETHOPRIM-SULFAMETHOXAZOLE Inactive AZITHROMYCIN 250 MG TABS 2 po qd x 1 day, then 1 po qd x 4 days AZITHROMYCIN 250 MG TABS 008499 AZITHROMYCIN Inactive CEFDINIR 300 MG CAPS by mouth twice a day CEFDINIR 300 MG CAPS 20020708 CEFDINIR Inactive AZITHROMYCIN 250 MG TABS 2 pills on day 1, then 1 pill daily x 4 days AZITHROMYCIN 250 MG TABS 728324 AZITHROMYCIN Inactive DOXYCYCLINE HYCLATE 100 MG CAP 1 cap by mouth twice daily DOXYCYCLINE HYCLATE 100 MG CAP 6847774 DOXYCYCLINE HYCLATE Inactive FUROSEMIDE 20 MG TABS 1 pill by mouth daily, for edema FUROSEMIDE 20 MG TABS 618400 FUROSEMIDE Inactive AZITHROMYCIN 250 MG TABS 2 po qd x 1 day, then 1 po qd x 4 days AZITHROMYCIN 250 MG TABS 841903 AZITHROMYCIN Inactive CEFTIN 500 MG TAB 1 twice a day CEFTIN 500 MG TAB 727067 CEFUROXIME AXETIL Inactive CEFDINIR 300 MG CAPS 1 po BID x 10 days CEFDINIR 300 MG CAPS 20020708 CEFDINIR Inactive BACTRIM DS 800-160 MG TAB 1 tab by mouth twice daily BACTRIM DS 800-160 MG TAB 889137 TRIMETHOPRIM-SULFAMETHOXAZOLE Inactive PREDNISONE 20 MG TAB 2 tabs daily for 3 days, 1 tab daily for 3 days, 1/2 tab daily for 2 days PREDNISONE 20 MG TAB 848311 PREDNISONE Inactive PREDNISONE 20 MG TAB take 3 tabs daily for 3 days, 2 tabs daily for 3 days, 1 tab daily for 3 days, 1/2 tab daily for 3 days PREDNISONE 20 MG TAB 861322 PREDNISONE Inactive BACTRIM DS 800-160 MG TAB 1 tab by mouth twice daily BACTRIM DS 800-160 MG TAB 846953 TRIMETHOPRIM-SULFAMETHOXAZOLE Inactive Immunizations Vaccine Administration Date Value Standard Description Seasonal influenza vaccine, injectable, containing preservative, for > 3 years old (Afluria, FluLaval, Fluzone, Fluvirin, Fluarix, Agriflu(>=18 yo)) Fluzone (>3 yrs.) [TCZ888] Influenza, seasonal, injectable influenza immunization (Flu Vax) has been administered Influenza - Unspecified Formulation [CVX88] influenza virus vaccine, unspecified formulation pneumococcal immunization administered Pneumovax 23 [CVX33] pneumococcal polysaccharide vaccine, 23 valent Seasonal influenza vaccine, injectable, containing preservative, for > 3 years old (Afluria, FluLaval, Fluzone, Fluvirin, Fluarix, Agriflu(>=18 yo)) Fluzone (>3 yrs.) [RBT796] Influenza, seasonal, injectable dT (Diphtheria and Tetanus) booster given given Td(adult) unspecified formulation Boostrix (Tetanus toxoid, reduced diphtheria toxoid and acellular pertussis vaccine, adsorbed), booster Boostrix [HQU537] tetanus toxoid, reduced diphtheria toxoid, and acellular [...] PANEL - Chemistry cholesterol, serum 166 mg/dL 297-749 6001/12/06 triglyceride, serum, fasting 86 mg/dL 30-200 HDL [...] negative Encounters Code Encounter Date Provider Facility CPT-26868 Level 3 Est. Patient 10:28:15 CDT Tisha Lambert [facility] CPT-54540 Level 3 Est. Patient 14:50:29 CDT Gab Padron MD [facility] CPT-11676 Level 3 Est. Patient 14:46:09 CDT Tisha Lambert [facility] CPT-10162 Level 4 New Patient 16:13:15 CDT Todd Callaway MD [facility] CPT-90545 Level 4 Est. Patient 13:18:33 CDT Gab Padron MD [facility] CPT-21238 Level 3 Est. Patient 15:20:50 CDT Jared Og MD [facility] CPT-09338 Level 3 Est. Patient 17:43:55 SAFETY LAMP KEEPER Gab Padron MD [facility] CPT-42586 Level 3 Est. Patient 17:07:49 SAFETY LAMP KEEPER Jared Og MD [facility] CPT-49151 Level 4 Est. Patient 19:55:18 SAFETY LAMP KEEPER Jared Og MD [facility] CPT-00942 Level 3 Est. Patient 20:13:34 SAFETY LAMP KEEPER Jared Og MD [facility] CPT-43018 Level 4 Est. Patient 16:31:27 CDT Gab Padron MD [facility] CPT-78232 Level 2 Est. Patient 12:23:38 CDT Jared Og MD [facility] CPT-60369 Level 3 Est. Patient 11:01:51 CDT Gab Padron MD [facility] CPT-73195 Level 3 Est. Patient 15:27:02 CDT Jared Og MD [facility] CPT-38719 Level 4 Est. Patient 09:25:27 CDT Gab Padron MD [facility] CPT-69027 Level 3 Est. Patient 10:29:41 CDT Rodrigo Sarah [facility] CPT-63358 Level 4 Est. Patient 17:51:05 CDT Gab Padron MD [facility] CPT-67536 Level 3 Est. Patient 14:18:08 CDT Gab Padron MD [facility] CPT-87208 Level 4 Est. Patient 10:18:54 CDT Gab Padron MD [facility] CPT-66742 Level 3 Est. Patient 11:30:07 CDT Rodrigo Sarah [facility] CPT-50007 Level 4 Est. Patient 21:02:30 SAFETY LAMP KEEPER Gab Padron MD [facility]-71311 Level 3 Est. Patient 11:02:19 SAFETY LAMP KEEPER Gab Padron MD [facility]-09664 Level 4 Est. Patient 22:24:31 SAFETY LAMP KEEPER Gab Padron MD [facility]-98772 Level 3 Est. Patient 18:33:46 SAFETY LAMP KEEPER Gab Padron MD [facility]-50005 Level 3 Est. Patient 16:19:11 CDT Yolande Lindsay MD [facility]-42860 Level 3 Est. Patient 18:59:14 CDT Yolande Lindsay MD [facility]-94372 Level 4 Est. Patient 21:29:26 CDT Yolande Lindsay MD [facility]-96124 Level 3 Est. Patient 07:37:45 CDT Yolande Lindsay MD [facility]-38117 Level 3 Est. Patient 17:03:46 CDT Yolande Lindsay MD [facility]-67579 Level 4 Est. Patient 20:02:13 SAFETY LAMP KEEPER Yolande Lindsay MD [facility]-24003 Level 3 Est. Patient 16:02:07 SAFETY LAMP KEEPER Alexis Ordaz MD [facility]-19174 Level 3 Est. Patient 12:41:24 SAFETY LAMP KEEPER Yolande Lindsay MD [facility]-94296 Level 3 Est. Patient 15:41:20 SAFETY LAMP KEEPER Yolande Lindsay MD [facility]-86503 Level 3 Est. Patient 13:20:02 SAFETY LAMP KEEPER Yolande Lindsay MD [facility]-27826 Level 3 Est. Patient 15:00:38 CDT Jared Og MD [facility]-73844 Level 3 Est. Patient 10:22:32 CDT Yolande Lindsay MD [facility]-14036 Level 3 Est. Patient 17:12:58 CDT Yolande Lindsay MD [facility]-23086 Level 4 Est. Patient 13:30:58 CDT Yolande Lindsay MD [facility]-76163 Level 4 New Patient 09:02:42 CDT [address] [facility]-57564 Level 3 Est. Patient 08:19:07 CDT Yolande Lindsay MD [facility]-19547 Level 3 Est. Patient 12:00:13 SAFETY LAMP KEEPER Gab Padron MD [facility]-58650 Level 3 Est. Patient 16:15:23 SAFETY LAMP KEEPER Yolande Lindsay MD [facility]-55305 Level 2 Est. Patient 19:47:15 CDT Yolande Lindsay MD [facility]-97193 Level 3 Est. Patient 21:38:31 CDT Yolande Lindsay MD [facility]-54096 Level 3 Est. Patient 10:25:12 CDT Adiel PERAZA [facility] CPT-49615 Level 4 Est. Patient 10:51:58 CDT Yolande Lindsay MD [facility] CPT-60874 Level 3 Est. Patient 14:04:55 SAFETY LAMP KEEPER Rodrigo Sarah [facility]-39889 Level 3 Est. Patient 10:46:35 SAFETY LAMP KEEPER Rodrigo Sarah [facility] CPT-38166 Level 3 Est. Patient 14:24:37 SAFETY LAMP KEEPER Yolande Lindsay MD [facility]76097 Level 3 Est. Patient 17:41:58 SAFETY LAMP KEEPER Yolande Lindsay MD [facility] CPT-95243 Level 2 Est. Patient 22:01:41 SAFETY LAMP KEEPER Rodrigo Sarah [facility] CPT-48302 Level 2 Est. Patient 22:01:11 SAFETY LAMP KEEPER Rodrigo Sarah [facility] CPT-97273 Level 3 Est. Patient 10:12:29 SAFETY LAMP KEEPER Rodrigo Sarah [facility] CPT-84627 Level 3 Est. Patient 11:05:44 CDT Alexis Ordaz MD [facility] CPT-96706 Level 3 Est. Patient 14:57:20 CDT Yolande Lindsay MD [facility]-97287 Level 3 Est. Patient 14:40:57 CDT Yolande Lindsay MD [facility] CPT-15656 Level 3 Est. Patient 20:55:40 CDT Yolande Lindsay MD [facility] CPT-97853 Level 3 Est. Patient 12:42:38 SAFETY LAMP KEEPER Yolande Lindsay MD [facility]-48751 Level 3 Est. Patient 11:54:49 SAFETY LAMP KEEPER Des Hines MD [facility] CPT-65132 Level 3 Est. Patient 17:06:38 CDT Dewayne PERAZA [facility] Procedures Code Procedure Name Date Entry Date Standard Description CPT-J2930 Solu Medrol 125 mg (Methyl Prednisolone Sodium Succinate) 13:19:02 CDT CPT-15396 Abx/Therapy Injection 13:19:02 CDT CPT-J2930 Solu Medrol 125 mg (Methyl Prednisolone Sodium Succinate) 13:05:03 CDT CPT-92211 Hip, complete, 2-3 views - XRAY USE ONLY 17:19:04 SAFETY LAMP KEEPER CPT-32763 Venipuncture Draw Fee 08:37:59 SAFETY LAMP KEEPER CPT-46374 Liver Profile - LAB USE ONLY 08:37:59 SAFETY LAMP KEEPER CPT-27915 Lipid - LAB USE ONLY 08:37:58 SAFETY LAMP KEEPER CPT-00499 First Vx - Ix admin via ID IM or jet injects without counseling by physician 11:52:31 CDT CPT-19099 Fluzone Preservative Free Intramuscular Suspension 11:52 :31 CDT CPT-54057 Foot, left, comp min 3V - XRAY USE ONLY 09:24:54 CDT CPT-83328 Abd single AP View - XRAY USE ONLY 11:16:17 CDT CPT-66261 T spine AP/ Lat - XRAY USE ONLY 09:34:21 CDT CPT-68487 Chest 2V Frontal and Lat - XRAY USE ONLY 10:48:51 CDT CPT-10799 LS spine comp w obliq 13:28:00 SAFETY LAMP KEEPER CPT-J1040 Depo Medrol 80 mg (Methyl Prednisolone Acetate) 10:51: 28 SAFETY LAMP KEEPER CPT-J1100 Decadron 8mg (Dexamethasone) 10:51:28 SAFETY LAMP KEEPER CPT-09246 Abx/Therapy Injection 10:51:28 SAFETY LAMP KEEPER CPT-J1100 Decadron 8mg (Dexamethasone) 21:02:30 SAFETY LAMP KEEPER CPT-J1040 Depo Medrol 80 mg (Methyl Prednisolone Acetate) 21:02: 30 SAFETY LAMP KEEPER [id number] Event Monitor - MC Transmission 09:12:32 CDT 08/06 [id number] Event Monitor - MC review and interp 09:12:32 CDT [id number] Event Monitor - [facility] recording 09:12:32 CDT CPT-52125 EKG Trac and Interp 16:50:22 CDT CPT-J1030 Depo Medrol 40 mg (Methyl Prednisolone Acetate) 17:05: 54 CDT CPT-J1100 Decadron 4mg (Dexamethasone) 17:05:54 CDT CPT-38492 Abx/Therapy Injection 17:05:54 CDT CPT-J1100 Decadron 4mg (Dexamethasone) 16:55:28 CDT CPT-J1030 Depo Medrol 40 mg (Methyl Prednisolone Acetate) 16:55: 28 CDT CPT-51223 Ankle Complete - Min 3V 15:58:50 CDT CPT-95923 Knee 3V 15:58:50 CDT CPT-78109 Hip comp min 2V 15:58:50 CDT CPT-J2270 Morphine Sulfate 10 mg 14:25:44 [employer] CPT-J2550 Phenergan 12.5 mg (Promethazine) 14:25:44 [employer] CPT-84958 Abx/Therapy Injection 14:25:44 [employer] CPT-J2550 Phenergan 12.5 mg (Promethazine) 14:08:03 [employer] CPT-J2270 Morphine Sulfate 10 mg 14:08:03 [employer] CPT-65174 Bladder Scan 15:00:38 CDT CPT-TCMM Transitional Care Mgmt-Moderate 09:52:22 CDT CPT-J1030 Depo Medrol 40 mg (Methyl Prednisolone Acetate) 10:55: 18 CDT CPT-J1100 Decadron 4mg (Dexamethasone) 10:55:18 CDT CPT-27384 Abx/Therapy Injection 10:55:18 CDT CPT-J1030 Depo Medrol 40 mg (Methyl Prednisolone Acetate) 10:22: 32 CDT CPT-J1100 Decadron 4mg (Dexamethasone) 10:22:32 CDT CPT-93757 Postop F/U Visit 14:37:13 CDT CPT-06443 Ankle Complete - Min 3V 17:11:58 CDT CPT-64778 Foot comp min 3V 17:11:58 CDT CPT-96333 Bladder Scan 09:56:58 CDT CPT-09729 Postop F/U Visit 09:56:58 CDT CPT-75317 Cystoscopy 09:02:42 CDT CPT-60339 Bladder Scan 09:02:42 CDT CPT-21216 Abd single AP View 16:00:35 CDT CPT-31618 Administration single or combination vaccine inc oral 10 :15:43 CDT CPT-61412 Influenza split virus > age 3 10:15:43 CDT CPT-52435 Nail Avulsion 09:24:57 CDT CPT-OV Office Visit 11:15:41 CDT CPT-05534 Abx/Therapy Injection 10:51:30 CDT CPT-J3301 Kenalog 40 mg (Triamcinolone Acetonide) 10:25:12 CDT CPT-J1100 Decadron 4mg (Dexamethasone) 10:25:12 CDT CPT-20214 Anoscopy diagnostic 10:36:12 CDT CPT-OV Office Visit 15:34:31 CDT CPT-04643 Abx/Therapy Injection 08:21:15 [employer] CPT-J1885 Toradol 60 mg (Ketorolac) 10:46:35 [employer] CPT-OV Office Visit 19:51:16 [employer] CPT-23275 Spec Collection and Handling Fee 14:34:18 [employer] CPT-PV Prev. Care Visit 14:19:18 [employer] CPT-61338 Postop F/U Visit 14:47:51 [employer] CPT-55895 Postop F/U Visit 15:15:14 [employer] CPT-32857 Postop F/U Visit 14:41:43 CDT CPT-97375 Postop F/U Visit 15:47:46 CDT CPT-OV Office Visit 15:27:23 CDT CPT-OV Office Visit 17:20:34 CDT CPT-81443 Abx/Therapy Injection 15:05:57 CDT CPT-J1100 Decadron 8mg (Dexamethasone) 14:44:57 CDT CPT-J1040 Depo Medrol 80 mg (Methyl Prednisolone Acetate) 14:44: 57 CDT CPT-JTINJ Joint Injection 10:17:37 CDT CPT-95926 Administration 2+ single or combination vaccines inc oral 13:01:46 [employer] CPT-35035 Administration single or combination vaccine inc oral 13 :01:46 [employer] CPT-46352 Pneumovax 13:01:46 [employer] CPT-74205 Influenza split virus > age 3 13:01:46 [employer] CPT-34781 Administration single or combination vaccine inc oral 08 :56:49 CDT CPT-02967 Tdap 08:56:49 CDT
--- OUTSIDE RECORDS SUMMARY | 2017-03-21 21:09 | XMS REPORT | Clinical Summary ---
Author Author Admin, E Organization [facility] Address Unknown Phone Unavailable Allergies, Adverse Reactions, Alerts Allergy Name Reaction Description Start Date Severity Status Provider VALENTIN Critical Active Rodrigo Montemayorl [employer] CHLORHEXIDINE GLUCONATE tongue and gums swollen Critical Active Hoadante Otto RMA NORFLEX Rash Critical Active Silvestrellina Frazell [employer] TRAZODONE HCL sees things Critical Active Dewayne [...] other medications ROUTINE GYNECOLOGICAL EXAMINATION V72.31 Resolved Yoladne Lindsay MD PhD Routine gynecological examination HYPOTHYROIDISM [...] MD Lumbago Cough 786.2 Active Jillina Tyrel [employer] Cough 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 Jillina Frazellilian [employer]CH[employer] 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 Anemia 285.9 Active Gab Padron MD Anemia, unspecified Conjunctivitis 372.30 Active Jillnacho Sarah APRN Conjunctivitis, unspecified Sinusitis 473.9 Active Silvestrellina Frazell [employer] Unspecified sinusitis (chronic) Nonspecific syndrome suggestive of viral illness 079.99 Active Jillina Frazell [employer] Unspecified viral infection Laryngitis 464.00 Active Jillina Frazell [employer] Acute laryngitis without mention of obstruction Abdominal [...] Flank pain, left 789.09 Active Jillina Frazell [employer] Abdominal pain, other specified site; multiple sites Abdominal pain, generalized 789.07 Active Jillina Farshadzell [employer] Abdominal pain, generalized Back pain, thoracic region, left 724.1 Active Jillina Frazell [employer] Pain in thoracic spine Abdominal pain, left [...] 1/2 tab daily for 2 days PREDNISONE 99463306298 No Longer Active Gab Padron MD Active ZOFRAN ODT 4 MG TBDP 1 po q6hr PRN Nausea ONDANSETRON 64658912737 Active Jillina Frazell [employer] Active IBUPROFEN 600 MG TAB 1 tablet by mouth every 6 hours for 7 days, then 1 tablet every 6 hours as needed. Take with food IBUPROFEN 95379312116 Active Jillina Frazell [employer] Active BACTRIM DS 800-160 MG TAB 1 tab by mouth twice daily TRIMETHOPRIM-SULFAMETHOXAZOLE 72726215325 No Longer Active Gab Padron MD Active ADVAIR DISKUS 250-50 MCG/DOSE AEPB 1 puff BID FLUTICASONE- SALMETEROL 09253015598 Active Rodrigo Sarah APRN Active LEVOTHYROXINE SODIUM 75 MCG TABS Take 1 tab daily LEVOTHYROXINE SODIUM 14682275068 No Longer Active Mariana FLEMING Active SYNTHROID 88 MCG ORAL TABS Take one by mouth daily LEVOTHYROXINE SODIUM 78605208170 Active Mariana FLEMING Active CHERATUSSIN AC 100-10 MG/5ML SYRP 1 tsp by mouth every 4 hours as needed for cough GUAIFENESIN-CODEINE 57955823619 No Longer Active Gab Padron MD Active POLYTRIM 76244-6.1 UNIT/ML-% SOLN 1 gtt to affected eye q3h x 7 days POLYMYXIN B-TRIMETHOPRIM 05569859249 No Longer Active Gab Padron MD Active FLUTICASONE PROPIONATE 50 MCG/ACT SUSP 1 to 2 sprays each nostril daily 04/21 FLUTICASONE PROPIONATE 74128948805 No Longer Active Gab Padron MD Active TRILEPTAL 600 MG TABS Take one 1 tablet in Am and 1 tablet at night OXCARBAZEPINE 41084279583 Active Gab Padron MD Active CEFDINIR 300 MG CAPS 1 po BID x 10 days CEFDINIR 78650159857 No Longer Active Rodrigo Sarah APRN Active CEFTIN 500 MG TAB 1 twice a day CEFUROXIME AXETIL 29129718597 No Longer Active Gab Padron MD Active AZITHROMYCIN 250 MG TABS 2 po qd x 1 day, then 1 po qd x 4 days AZITHROMYCIN 89212669195 No Longer Active Rodrigo Sarah APRN Active CLARITIN 10 MG TAB 1 tablet by mouth daily as needed for allergies LORATADINE 86233002193 Active Rodrigo Sarah APRN Active OXYCODONE HCL 5 MG ORAL CAPS 1 TAB PO Q HS OXYCODONE HCL 89060025870 No Longer Active Rodrigo Sarah APRN Active NIASPAN 500 MG ORAL CR-TABS 1 pill nightly x 1 week, then 2 pills nightly x 1 week, then 3 pills nightly x 1 week, then 4 pills nightly NIACIN (ANTIHYPERLIPIDEMIC) 15360535474 No Longer Active Rodrigo Sarah APRN Active NIACIN 500 MG TABS 1 pill by mouth nightly x 1 week, then 2 pills x 1 week, then 3 pills x 1 week, then 4 pills nightly - take after evening meal, with applesauce or an apple NIACIN 68820844945 No Longer Active Yolande Lindsay MD PhD Active FISH OIL 1000 MG CAPS 3 pills daily OMEGA-3 FATTY ACIDS 42399195156 Active Yolande Lindsay MD PhD Active TRIAMCINOLONE ACETONIDE 0.1 % CREA apply bid sparingly to rash TRIAMCINOLONE ACETONIDE 96809954736 Active Yolande Lindsay MD PhD Active FUROSEMIDE 20 MG TAB 1 tablet by mouth daily FUROSEMIDE 99080837854 Active Tisha Lambert APRN Active LISINOPRIL 20 MG ORAL TABS 1 tab by mouth daily LISINOPRIL 11193235990 Active Gab Padron MD Active FUROSEMIDE 20 MG TABS 1 pill by mouth daily, for edema FUROSEMIDE 68962030954 No Longer Active Yolande Lindsay MD PhD Active ATORVASTATIN CALCIUM 10 MG TABS 1 pill by mouth daily, for cholesterol 09/06 ATORVASTATIN CALCIUM 33209740852 Active Gab Padron MD Active CALCIUM 600+D PLUS MINERALS 600-400 MG-UNIT ORAL CHEW 1 tab by mouth daily CALCIUM CARBONATE-VIT D-MIN 95704001928 No Longer Active Yolande Lindsay MD PhD Active CYCLOBENZAPRINE HCL 10 MG TABS 1 tablet by mouth three times daily as needed for muscle spasm/pain CYCLOBENZAPRINE HCL 01170883977 Active Yolande Lindsay MD PhD Active ONDANSETRON 4 MG TBDP 1 q4h PRN nausea ONDANSETRON 12801995950 Active Yolande Lindsay MD PhD Active ADULT ASPIRIN EC LOW STRENGTH 81 MG TBEC Take 1 tablet by mouth daily 2014 ASPIRIN 14443455666 No Longer Active Yolande Lindsay MD PhD Active ZOFRAN ODT 4 MG TBDP 1 pill dissolved by mouth every 4 hours if needed for nausea ONDANSETRON 91190372474 No Longer Active Yolande Lindsay MD PhD Active CEFTIN 500 MG TAB 1 twice a day CEFUROXIME AXETIL 75012669255 No Longer Active Yolande Lindsay MD PhD Active ALBUTEROL SULFATE 0.083 % NEBU SOLN one vial per nebulizer every 4-6 hours as needed ALBUTEROL SULFATE 06186015197 No Longer Active Alexis Ordaz MD Active DOXYCYCLINE HYCLATE 100 MG CAP 1 cap by mouth twice daily DOXYCYCLINE HYCLATE 52982259368 No Longer Active Yolande Lindsay MD PhD Active CYCLOBENZAPRINE HCL 10 MG TABS 1/2 - 1 tab by mouth three times daily if needed for spasms/pain CYCLOBENZAPRINE HCL 03735292230 No Longer Active Yolande Lindsay MD PhD Active AZITHROMYCIN 250 MG TABS 2 pills on day 1, then 1 pill daily x 4 days AZITHROMYCIN 50196004966 No Longer Active Yolande Lindsay MD PhD Active XOPENEX 1.25 MG/3ML NEBU 1 neb every 4 hours if needed for cough/congestion LEVALBUTEROL HCL 15845228848 No Longer Active Yolande Lindsay MD PhD Active DOXYCYCLINE HYCLATE 100 MG TAB 1 tab twice a day for 14 days 2013 DOXYCYCLINE HYCLATE 75765097414 No Longer Active Yolande Lindsay MD PhD Active PREVACID 30 MG CPDR Take 1 tablet by mouth daily-PRN LANSOPRAZOLE 28430460661 No Longer Active Yolande Lindsay MD PhD Active PA VITAMIN D-3 2000 UNIT CAPS 1 CAP PO DAILY CHOLECALCIFEROL 94446148047 No Longer Active Yolande Lindsay MD PhD Active CEFDINIR 300 MG CAPS by mouth twice a day CEFDINIR 16995756284 No Longer Active Gab Padron MD Active TOPAMAX 50 MG TABS 1 PO twice daily TOPIRAMATE 46320819653 Active Yolande Lindsay MD PhD Active AZITHROMYCIN 250 MG TABS 2 po qd x 1 day, then 1 po qd x 4 days AZITHROMYCIN 97561034543 No Longer Active Yolande Lindsay MD PhD Active DICLOFENAC SODIUM 75 MG TBEC 1 tablet by q 12 hours PRN headaches DICLOFENAC SODIUM 14935530196 No Longer Active Yolande Lindsay MD PhD Active FLONASE 50 MCG/ACT SUSP 1 spray each nostril am and hs FLUTICASONE PROPIONATE 14349105221 No Longer Active Todd Callaway MD Active ANUSOL-HC 25 MG SUPPOSITORY 1 rectally twice a day as needed for hemorrhoids HYDROCORTISONE JAYDEN (RECTAL) 59588945044 No Longer Active Yolande Lindsay MD PhD Active ANUSOL-HC 25 MG SUPPOSITORY 1 suppository rectally each evening as needed for anal fissure HYDROCORTISONE JAYDEN (RECTAL) 28211070251 No Longer Active LONNIE Iglesias Active VALIUM 5 MG TAB 1 po 30 minutes prior to your MRI DIAZEPAM 71818875665 No Longer Active LONNIE Iglesias Active METHOCARBAMOL 750 MG TABS 1 PO QID PRN METHOCARBAMOL 51211908487 No Longer Active Daphne Wetzel [employer] Active NITROSTAT 0.4 MG SUBL as directed NITROGLYCERIN 74154499623 No Longer Active Rodrigo Sarah APRN Active ROBAXIN-750 750 MG TABS 2 four times a day for 3 days as needed for muscle spasm, then 1 four times a day as needed METHOCARBAMOL 38282657180 No Longer Active Rodrigo Sarah APRN Active HYDROCODONE-ACETAMINOPHEN 5-325 MG TABS 1 q 4-6 hrs prn HYDROCODONE-ACETAMINOPHEN 90446301545 No Longer Active Rodrigo Sarah APRN Active VERAPAMIL HCL CR 180 MG CR-TABS TAKE 1 TAB DAILY VERAPAMIL HCL 85194996522 No Longer Active Yolande Lindsay MD PhD Active BACTRIM DS 800-160 MG TAB 1 tab by mouth twice daily TRIMETHOPRIM-SULFAMETHOXAZOLE 05343853082 No Longer Active Yolande Lindsay MD PhD Active NEXIUM 40 MG PACK 1 by mouth daily ESOMEPRAZOLE MAGNESIUM 48538055519 No Longer Active Des Hines MD Active EPIPEN 2-CHARLETTE 0.3 MG/0.3ML OMARI as need for allergic reaction EPINEPHRINE 52160691038 Active Yolande Lindsay MD PhD Active NEXIUM 40 MG CPDR 1 PO Q D DAY ESOMEPRAZOLE MAGNESIUM 97732807031 No Longer Active Sadia Perry RN Active NEXIUM 40 MG PACK 1 by mouth daily NEXIUM 40 MG PACK ESOMEPRAZOLE MAGNESIUM Inactive VERAPAMIL HCL CR 180 MG CR-TABS TAKE 1 TAB DAILY VERAPAMIL HCL CR 180 MG CR-TABS VERAPAMIL HCL Inactive HYDROCODONE-ACETAMINOPHEN 5-325 MG TABS 1 q 4-6 hrs prn HYDROCODONE-ACETAMINOPHEN 5-325 MG TABS 624166 HYDROCODONE-ACETAMINOPHEN Inactive ROBAXIN-750 750 MG TABS 2 four times a day for 3 days as needed for muscle spasm, then 1 four times a day as needed ROBAXIN-750 750 MG TABS 663307 METHOCARBAMOL Inactive NITROSTAT 0.4 MG SUBL as directed NITROSTAT 0.4 MG SUBL 952974 NITROGLYCERIN Inactive METHOCARBAMOL 750 MG TABS 1 PO QID PRN METHOCARBAMOL 750 MG TABS 894772 METHOCARBAMOL Inactive VALIUM 5 MG TAB 1 po 30 minutes prior to your MRI VALIUM 5 MG TAB 819107 DIAZEPAM Inactive ANUSOL-HC 25 MG SUPPOSITORY 1 suppository rectally each evening as needed for anal fissure ANUSOL-HC 25 MG SUPPOSITORY 6460096 HYDROCORTISONE JAYDEN (RECTAL) Inactive ANUSOL-HC 25 MG SUPPOSITORY 1 rectally twice a day as needed for hemorrhoids ANUSOL-HC 25 MG SUPPOSITORY 3696265 HYDROCORTISONE JAYDEN (RECTAL) Inactive FLONASE 50 MCG/ACT SUSP 1 spray each nostril am and hs FLONASE 50 MCG/ACT SUSP FLUTICASONE PROPIONATE Inactive DICLOFENAC SODIUM 75 MG TBEC 1 tablet by q 12 hours PRN headaches DICLOFENAC SODIUM 75 MG TBEC 885988 DICLOFENAC SODIUM Inactive PA VITAMIN D-3 2000 UNIT CAPS 1 CAP PO DAILY PA VITAMIN D-3 2000 UNIT CAPS CHOLECALCIFEROL Inactive PREVACID 30 MG CPDR Take 1 tablet by mouth daily-PRN PREVACID 30 MG CPDR 092268 LANSOPRAZOLE Inactive DOXYCYCLINE HYCLATE 100 MG TAB 1 tab twice a day for 14 days 2013 DOXYCYCLINE HYCLATE 100 MG TAB 8380892 DOXYCYCLINE HYCLATE Inactive XOPENEX 1.25 MG/3ML NEBU 1 neb every 4 hours if needed for cough/congestion XOPENEX 1.25 MG/3ML NEBU 157376 LEVALBUTEROL HCL Inactive CYCLOBENZAPRINE HCL 10 MG TABS 1/2 - 1 tab by mouth three times daily if needed for spasms/pain CYCLOBENZAPRINE HCL 10 MG TABS 032579 CYCLOBENZAPRINE HCL Inactive ALBUTEROL SULFATE 0.083 % NEBU SOLN one vial per nebulizer every 4-6 hours as needed ALBUTEROL SULFATE 0.083 % NEBU SOLN 335296 ALBUTEROL SULFATE Inactive CEFTIN 500 MG TAB 1 twice a day CEFTIN 500 MG TAB 593053 CEFUROXIME AXETIL Inactive ZOFRAN ODT 4 MG TBDP 1 pill dissolved by mouth every 4 hours if needed for nausea ZOFRAN ODT 4 MG TBDP 730959 ONDANSETRON Inactive ADULT ASPIRIN EC LOW STRENGTH 81 MG TBEC Take 1 tablet by mouth daily 2014 ADULT ASPIRIN EC LOW STRENGTH 81 MG TBEC 074451 ASPIRIN Inactive CALCIUM 600+D PLUS MINERALS 600-400 [...] or an apple NIACIN 500 MG TABS 526274 NIACIN Inactive NIASPAN 500 MG ORAL CR-TABS 1 pill nightly x 1 week, then 2 pills nightly x 1 week, then 3 pills nightly x 1 week, then 4 pills nightly NIASPAN 500 MG ORAL CR-TABS NIACIN (ANTIHYPERLIPIDEMIC) Inactive OXYCODONE HCL 5 MG ORAL CAPS 1 TAB PO Q HS OXYCODONE HCL 5 MG ORAL CAPS 6021382 OXYCODONE HCL Inactive FLUTICASONE PROPIONATE 50 MCG/ACT SUSP 1 to 2 sprays each nostril daily 04/21 FLUTICASONE PROPIONATE 50 MCG/ACT SUSP 3310635 FLUTICASONE PROPIONATE Inactive POLYTRIM 65992-6.1 UNIT/ML-% SOLN 1 gtt to affected eye q3h x 7 days POLYTRIM 82446-7.1 UNIT/ML-% SOLN 272277 POLYMYXIN B- TRIMETHOPRIM Inactive CHERATUSSIN AC 100-10 MG/5ML SYRP 1 tsp by mouth every 4 hours as needed for cough CHERATUSSIN AC 100-10 MG/5ML SYRP 169867 GUAIFENESIN-CODEINE Inactive LEVOTHYROXINE SODIUM 75 MCG TABS Take 1 tab daily LEVOTHYROXINE SODIUM 75 MCG TABS 335775 LEVOTHYROXINE SODIUM Inactive BACTRIM DS 800-160 MG TAB 1 tab by mouth twice daily BACTRIM DS 800-160 MG TAB 032860 TRIMETHOPRIM-SULFAMETHOXAZOLE Inactive AZITHROMYCIN 250 MG TABS 2 po qd x 1 day, then 1 po qd x 4 days AZITHROMYCIN 250 MG TABS 3333513 AZITHROMYCIN Inactive CEFDINIR 300 MG CAPS by mouth twice a day CEFDINIR 300 MG CAPS 20020708 CEFDINIR Inactive AZITHROMYCIN 250 MG TABS 2 pills on day 1, then 1 pill daily x 4 days AZITHROMYCIN 250 MG TABS 3344348 AZITHROMYCIN Inactive DOXYCYCLINE HYCLATE 100 MG CAP 1 cap by mouth twice daily DOXYCYCLINE HYCLATE 100 MG CAP 5492288 DOXYCYCLINE HYCLATE Inactive FUROSEMIDE 20 MG TABS 1 pill by mouth daily, for edema FUROSEMIDE 20 MG TABS 784356 FUROSEMIDE Inactive AZITHROMYCIN 250 MG TABS 2 po qd x 1 day, then 1 po qd x 4 days AZITHROMYCIN 250 MG TABS 1662987 AZITHROMYCIN Inactive CEFTIN 500 MG TAB 1 twice a day CEFTIN 500 MG TAB 951608 CEFUROXIME AXETIL Inactive CEFDINIR 300 MG CAPS 1 po BID x 10 days CEFDINIR 300 MG CAPS 20020708 CEFDINIR Inactive BACTRIM DS 800-160 MG TAB 1 tab by mouth twice daily BACTRIM DS 800-160 MG TAB 475690 TRIMETHOPRIM-SULFAMETHOXAZOLE Inactive PREDNISONE 20 MG TAB 2 tabs daily for 3 days, 1 tab daily for 3 days, 1/2 tab daily for 2 days PREDNISONE 20 MG TAB 545184 PREDNISONE Inactive Immunizations Vaccine Administration Date Value Standard Description Seasonal influenza vaccine, injectable, containing preservative, for > 3 years old (Afluria, FluLaval, Fluzone, Fluvirin, Fluarix, Agriflu(>=18 yo)) Fluzone (>3 yrs.) [EGD817] Influenza, seasonal, injectable influenza immunization (Flu Vax) has been administered Influenza - Unspecified Formulation [CVX88] influenza virus vaccine, unspecified formulation pneumococcal immunization administered Pneumovax 23 [CVX33] pneumococcal polysaccharide vaccine, 23 valent Seasonal influenza vaccine, injectable, containing preservative, for > 3 years old (Afluria, FluLaval, Fluzone, Fluvirin, Fluarix, Agriflu(>=18 yo)) Fluzone (>3 yrs.) [KCF684] Influenza, seasonal, injectable dT (Diphtheria and Tetanus) booster given given Td(adult) unspecified formulation Boostrix (Tetanus toxoid, reduced diphtheria toxoid and acellular pertussis vaccine, adsorbed), booster Boostrix [ZFB207] tetanus toxoid, reduced diphtheria toxoid, and acellular [...] E&M - 3141-9 233 [lb_av] Weight Measured Diagnostic Results Date Name Value Unit Range Description Lab Report: Basic Metabolic Panel - Chemistry sodium, serum 142 mmol/L 842-131 3783/06/30 potassium, serum 4.4 mmol/L 3.5-5.2 chloride, serum [...] Rate - Chemistry sodium, serum 139 mmol/L 085-506 4535/03/24 carbon dioxide, venous blood 22.4 mmol/L 21.0-32.0 [...] ... - Chemistry sodium, serum 143 mmol/L 888-763 2260/05/02 carbon dioxide, venous blood 25.6 mmol/L 21.0-32.0 [...] dipstick Negative Negative sodium, serum 142 mmol/L 437-224 9383/07/18 carbon dioxide, venous blood 27.8 mmol/L 21.0-32.0 [...] negative Encounters Code Encounter Date Provider Facility CPT-64138 Level 4 Est. Patient 16:31:27 CDT Gab Padron MD [facility] CPT-26902 Level 2 Est. Patient 12:23:38 CDT Jared Og MD [facility] CPT-00102 Level 3 Est. Patient 11:01:51 CDT Gab Padron MD [facility] CPT-85281 Level 3 Est. Patient 15:27:02 CDT Jared Og MD [facility] CPT-40849 Level 4 Est. Patient 09:25:27 CDT Gab Padron MD [facility] CPT-33290 Level 3 Est. Patient 10:29:41 CDT Rodrigo Sarah [facility] CPT-67561 Level 4 Est. Patient 17:51:05 CDT Gab Padron MD [facility] CPT-49326 Level 3 Est. Patient 14:18:08 CDT Gab Padron MD [facility] CPT-55519 Level 4 Est. Patient 10:18:54 CDT Gab Padron MD [facility] CPT-97895 Level 3 Est. Patient 11:30:07 CDT Rodrigo Sarah [facility] CPT-11072 Level 4 Est. Patient 21:02:30 OBSTETRICS/GYNECOLOGY NURSE Gab Padron MD [facility] CPT-40402 Level 3 Est. Patient 11:02:19 OBSTETRICS/GYNECOLOGY NURSE Gab Padron MD [facility] CPT-36863 Level 4 Est. Patient 22:24:31 OBSTETRICS/GYNECOLOGY NURSE Gab Padron MD [facility] CPT-89483 Level 3 Est. Patient 18:33:46 OBSTETRICS/GYNECOLOGY NURSE Gab Padron MD [facility] CPT-96697 Level 3 Est. Patient 16:19:11 CDT Yolande Lindsay MD [facility]-02527 Level 3 Est. Patient 18:59:14 CDT Yolande Lindsay MD [facility]-95962 Level 4 Est. Patient 21:29:26 CDT Yolande Lindsay MD [facility]-54329 Level 3 Est. Patient 07:37:45 CDT Yolande Lindsay MD [facility]-96374 Level 3 Est. Patient 17:03:46 CDT Yolande Lindsay MD [facility]-59902 Level 4 Est. Patient 20:02:13 OBSTETRICS/GYNECOLOGY NURSE Yolande Lindsay MD [facility]-56295 Level 3 Est. Patient 16:02:07 OBSTETRICS/GYNECOLOGY NURSE Alexis Ordaz MD [facility]-60469 Level 3 Est. Patient 12:41:24 OBSTETRICS/GYNECOLOGY NURSE Yolande Lindsay MD [facility]-01184 Level 3 Est. Patient 15:41:20 OBSTETRICS/GYNECOLOGY NURSE Yolande Lindsay MD [facility]-58536 Level 3 Est. Patient 13:20:02 OBSTETRICS/GYNECOLOGY NURSE Yolande Lindsay MD [facility]-56935 Level 3 Est. Patient 15:00:38 CDT Jared Og MD [facility]-66019 Level 3 Est. Patient 10:22:32 CDT Yolande Lindsay MD [facility]-34369 Level 3 Est. Patient 17:12:58 CDT Yolande Lindsay MD [facility]-36257 Level 4 Est. Patient 13:30:58 CDT Yolande Lindsya MD [facility]-48745 Level 4 New Patient 09:02:42 CDT Jared Og MD [facility]-59775 Level 3 Est. Patient 08:19:07 CDT Yolande Lindsay MD [facility]-96836 Level 3 Est. Patient 12:00:13 OBSTETRICS/GYNECOLOGY NURSE Gab Padron MD [facility]-31529 Level 3 Est. Patient 16:15:23 OBSTETRICS/GYNECOLOGY NURSE Yolande Lindsay MD [facility]28982 Level 2 Est. Patient 19:47:15 CDT Yolande Lindsay MD [facility]77818 Level 3 Est. Patient 21:38:31 CDT Yolande Lindsay MD [facility]66424 Level 3 Est. Patient 10:25:12 CDT Adiel PERAZA [facility]-09692 Level 4 Est. Patient 10:51:58 CDT Yolande Lindsay MD [facility]-18320 Level 3 Est. Patient 14:04:55 OBSTETRICS/GYNECOLOGY NURSE Rodrigo Sarah [facility]-91586 Level 3 Est. Patient 10:46:35 OBSTETRICS/GYNECOLOGY NURSE Rodrigo Sarah [facility]-98866 Level 3 Est. Patient 14:24:37 OBSTETRICS/GYNECOLOGY NURSE Yolande Lindsay MD [facility]-96777 Level 3 Est. Patient 17:41:58 OBSTETRICS/GYNECOLOGY NURSE Yolande Lindsay MD [facility]16184 Level 2 Est. Patient 22:01:41 OBSTETRICS/GYNECOLOGY NURSE Rodrigo Sarah [facility]-72203 Level 2 Est. Patient 22:01:11 OBSTETRICS/GYNECOLOGY NURSE Rodrigo Sarah [facility]-09480 Level 3 Est. Patient 10:12:29 OBSTETRICS/GYNECOLOGY NURSE Rodrigo Sarah [facility]-37509 Level 3 Est. Patient 11:05:44 CDT Alexis Ordaz MD [facility] CPT-89483 Level 3 Est. Patient 14:57:20 CDT Yolande Lindsay MD [facility] CPT-21243 Level 3 Est. Patient 14:40:57 CDT Yolande Lindsay MD [facility] CPT-83068 Level 3 Est. Patient 20:55:40 CDT Yolande Lindsay MD [facility] CPT-47317 Level 3 Est. Patient 12:42:38 OBSTETRICS/GYNECOLOGY NURSE Yolande Lindsay MD [facility] CPT-42157 Level 3 Est. Patient 11:54:49 OBSTETRICS/GYNECOLOGY NURSE Des Hines MD [facility] CPT-28928 Level 3 Est. Patient 17:06:38 CDT Dewayne PERAZA [facility] Procedures Code Procedure Name Date Entry Date Standard Description CPT-52057 Foot, left, comp min 3V - XRAY USE ONLY 09:24:54 CDT CPT-77603 Abd single AP View - XRAY USE ONLY 11:16:17 CDT CPT-63816 T spine AP/ Lat - XRAY USE ONLY 09:34:21 CDT CPT-96744 Chest 2V Frontal and Lat - XRAY USE ONLY 10:48:51 CDT CPT-66184 LS spine comp w obliq 13:28:00 OBSTETRICS/GYNECOLOGY NURSE CPT-J1040 Depo Medrol 80 mg (Methyl Prednisolone Acetate) 10:51: 28 OBSTETRICS/GYNECOLOGY NURSE CPT-J1100 Decadron 8mg (Dexamethasone) 10:51:28 OBSTETRICS/GYNECOLOGY NURSE CPT-78298 Abx/Therapy Injection 10:51:28 OBSTETRICS/GYNECOLOGY NURSE CPT-J1100 Decadron 8mg (Dexamethasone) 21:02:30 OBSTETRICS/GYNECOLOGY NURSE CPT-J1040 Depo Medrol 80 mg (Methyl Prednisolone Acetate) 21:02: 30 OBSTETRICS/GYNECOLOGY NURSE [id number] Event Monitor - MC Transmission 09:12:32 CDT 08/06 [id number] Event Monitor - MC review and interp 09:12:32 CDT [id number] Event Monitor - MC recording 09:12:32 CDT CPT-73700 EKG Trac and Interp 16:50:22 CDT CPT-J1030 Depo Medrol 40 mg (Methyl Prednisolone Acetate) 17:05: 54 CDT CPT-J1100 Decadron 4mg (Dexamethasone) 17:05:54 CDT CPT-28316 Abx/Therapy Injection 17:05:54 CDT CPT-J1100 Decadron 4mg (Dexamethasone) 16:55:28 CDT CPT-J1030 Depo Medrol 40 mg (Methyl Prednisolone Acetate) 16:55: 28 CDT CPT-78323 Ankle Complete - Min 3V 15:58:50 CDT CPT-09007 Knee 3V 15:58:50 CDT CPT-79516 Hip comp min 2V 15:58:50 CDT CPT-J2270 Morphine Sulfate 10 mg 14:25:44 OBSTETRICS/GYNECOLOGY NURSE CPT-J2550 Phenergan 12.5 mg (Promethazine) 14:25:44 OBSTETRICS/GYNECOLOGY NURSE CPT-88316 Abx/Therapy Injection 14:25:44 OBSTETRICS/GYNECOLOGY NURSE CPT-J2550 Phenergan 12.5 mg (Promethazine) 14:08:03 OBSTETRICS/GYNECOLOGY NURSE CPT-J2270 Morphine Sulfate 10 mg 14:08:03 OBSTETRICS/GYNECOLOGY NURSE CPT-89697 Bladder Scan 15:00:38 CDT CPT-TCMM Transitional Care Mgmt-Moderate 09:52:22 CDT CPT-J1030 Depo Medrol 40 mg (Methyl Prednisolone Acetate) 10:55: 18 CDT CPT-J1100 Decadron 4mg (Dexamethasone) 10:55:18 CDT CPT-79976 Abx/Therapy Injection 10:55:18 CDT CPT-J1030 Depo Medrol 40 mg (Methyl Prednisolone Acetate) 10:22: 32 CDT CPT-J1100 Decadron 4mg (Dexamethasone) 10:22:32 CDT CPT-54005 Postop F/U Visit 14:37:13 CDT CPT-85823 Ankle Complete - Min 3V 17:11:58 CDT CPT-24301 Foot comp min 3V 17:11:58 CDT CPT-60333 Bladder Scan 09:56:58 CDT CPT-40543 Postop F/U Visit 09:56:58 CDT CPT-01709 Cystoscopy 09:02:42 CDT CPT-14351 Bladder Scan 09:02:42 CDT CPT-25492 Abd single AP View 16:00:35 CDT CPT-60304 Administration single or combination vaccine inc oral 10 :15:43 CDT CPT-97675 Influenza split virus > age 3 10:15:43 CDT CPT-91585 Nail Avulsion 09:24:57 CDT CPT-OV Office Visit 11:15:41 CDT CPT-47349 Abx/Therapy Injection 10:51:30 CDT CPT-J3301 Kenalog 40 mg (Triamcinolone Acetonide) 10:25:12 CDT CPT-J1100 Decadron 4mg (Dexamethasone) 10:25:12 CDT CPT-65965 Anoscopy diagnostic 10:36:12 CDT CPT-OV Office Visit 15:34:31 CDT CPT-42869 Abx/Therapy Injection 08:21:15 OBSTETRICS/GYNECOLOGY NURSE CPT-J1885 Toradol 60 mg (Ketorolac) 10:46:35 OBSTETRICS/GYNECOLOGY NURSE CPT-OV Office Visit 19:51:16 OBSTETRICS/GYNECOLOGY NURSE CPT-02420 Spec Collection and Handling Fee 14:34:18 OBSTETRICS/GYNECOLOGY NURSE CPT-PV Prev. Care Visit 14:19:18 OBSTETRICS/GYNECOLOGY NURSE CPT-09195 Postop F/U Visit 14:47:51 OBSTETRICS/GYNECOLOGY NURSE CPT-59208 Postop F/U Visit 15:15:14 OBSTETRICS/GYNECOLOGY NURSE CPT-39204 Postop F/U Visit 14:41:43 CDT CPT-80426 Postop F/U Visit 15:47:46 CDT CPT-OV Office Visit 15:27:23 CDT CPT-OV Office Visit 17:20:34 CDT CPT-16737 Abx/Therapy Injection 15:05:57 CDT CPT-J1100 Decadron 8mg (Dexamethasone) 14:44:57 CDT CPT-J1040 Depo Medrol 80 mg (Methyl Prednisolone Acetate) 14:44: 57 CDT CPT-JTINJ Joint Injection 10:17:37 CDT CPT-05589 Administration 2+ single or combination vaccines inc oral 13:01:46 OBSTETRICS/GYNECOLOGY NURSE CPT-02920 Administration single or combination vaccine inc oral 13 :01:46 OBSTETRICS/GYNECOLOGY NURSE CPT-17385 Pneumovax 13:01:46 OBSTETRICS/GYNECOLOGY NURSE CPT-54953 Influenza split virus > age 3 13:01:46 OBSTETRICS/GYNECOLOGY NURSE CPT-78221 Administration single or combination vaccine inc oral 08 :56:49 CDT CPT-68831 Tdap 08:56:49 CDT
--- OUTSIDE RECORDS SUMMARY | 2017-03-21 21:11 | XMS REPORT | Clinical Summary ---
Author Author Admin, MARGRET Organization [employer] Address Unknown Phone Unavailable Allergies, Adverse Reactions, Alerts Allergy Name Reaction Description Start Date Severity Status Provider VALENTIN Critical Active Rodrigo Montemayorl LOG BUYER CHLORHEXIDINE GLUCONATE tongue and gums swollen Critical Active Hoa Kabaford RMA NORFLEX Rash Critical Active Rowenaina Farshadzell LOG BUYER TRAZODONE HCL sees things Critical Active Dewayne [...] Pain in limb Tick bite 989.5 Resolved oYlande Lindsay MD PhD Toxic effect of venom [...] hx of 412 Active Hoa Otto [facility] Old myocardial infarction Pelvic pain 789.09 Active Yolande Lindsay MD PhD Abdominal pain, other specified site; multiple sites Edema 782.3 Active Yolande Lindsay MD PhD Edema Rash 782.1 Active Yolande Lindsay MD PhD Rash and other nonspecific skin eruption Back pain, lumbar 724.2 Active Gab Padron MD Lumbago Cough 786.2 Active Jillina Tyrel LOG BUYER Cough 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 Jillina Frazellilian ZAPATAN 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 Anemia 285.9 Active Gab Padron MD Anemia, unspecified Conjunctivitis 372.30 Active Jillnacho Sarah APRN Conjunctivitis, unspecified Sinusitis 473.9 Active Jillina Frazell LOG BUYER Unspecified sinusitis (chronic) Nonspecific syndrome suggestive of viral illness 079.99 Active Rodrigo Sarah LOG BUYER Unspecified viral infection Laryngitis 464.00 Active Rodrigo [...] MCG/DOSE AEPB 1 puff BID FLUTICASONE- SALMETEROL 98068071701 Active Rodrigo Sarah LOG BUYER Active LEVOTHYROXINE SODIUM 75 MCG TABS Take 1 tab daily LEVOTHYROXINE SODIUM 95988981526 No Longer Active Mariana HICKEYA Active SYNTHROID 88 MCG ORAL TABS Take one by mouth daily LEVOTHYROXINE SODIUM 38290944685 Active Mariana HICKEYA Active CHERATUSSIN AC 100-10 MG/5ML SYRP 1 tsp by mouth every 4 hours as needed for cough GUAIFENESIN-CODEINE 47911162631 No Longer Active Gab Padron MD Active POLYTRIM 37485-9.1 UNIT/ML-% SOLN 1 gtt to affected eye q3h x 7 days POLYMYXIN B-TRIMETHOPRIM 67114147364 No Longer Active Gab Padron MD Active FLUTICASONE PROPIONATE 50 MCG/ACT SUSP 1 to 2 sprays each nostril daily 04/21 FLUTICASONE PROPIONATE 60975891711 No Longer Active Gab Padron MD Active TRILEPTAL 600 MG TABS Take one 1 tablet in Am and 1 tablet at night OXCARBAZEPINE 08737728925 Active Gab Padron MD Active CEFDINIR 300 MG CAPS 1 po BID x 10 days CEFDINIR 80414364232 No Longer Active Rodrigo Sarah APRN Active CEFTIN 500 MG TAB 1 twice a day CEFUROXIME AXETIL 30493539960 No Longer Active Gab Padron MD Active AZITHROMYCIN 250 MG TABS 2 po qd x 1 day, then 1 po qd x 4 days AZITHROMYCIN 48590701906 No Longer Active Rodrigo Sarah APRN Active CLARITIN 10 MG TAB 1 tablet by mouth daily as needed for allergies LORATADINE 55406493963 Active Silvestrellnacho Sarah APRN Active OXYCODONE HCL 5 MG ORAL CAPS 1 TAB PO Q HS OXYCODONE HCL 23482789750 No Longer Active Rodrigo Sarah APRN Active NIASPAN 500 MG ORAL CR-TABS 1 pill nightly x 1 week, then 2 pills nightly x 1 week, then 3 pills nightly x 1 week, then 4 pills nightly NIACIN (ANTIHYPERLIPIDEMIC) 03012996403 No Longer Active Silvestrellnacho Sarah APRN Active NIACIN 500 MG TABS 1 pill by mouth nightly x 1 week, then 2 pills x 1 week, then 3 pills x 1 week, then 4 pills nightly - take after evening meal, with applesauce or an apple NIACIN 54018856216 No Longer Active Yolande Lindsay MD PhD Active FISH OIL 1000 MG CAPS 3 pills daily OMEGA-3 FATTY ACIDS 10676737374 Active Yolande Lindsay MD PhD Active TRIAMCINOLONE ACETONIDE 0.1 % CREA apply bid sparingly to rash TRIAMCINOLONE ACETONIDE 92190026839 Active Yolande Lindsay MD PhD Active FUROSEMIDE 20 MG TAB 1 tablet by mouth daily FUROSEMIDE 06153266146 Active Yolande Lindsay MD PhD Active LISINOPRIL 20 MG ORAL TABS 1 tab by mouth daily LISINOPRIL 43661589209 Active Gab Padron MD Active FUROSEMIDE 20 MG TABS 1 pill by mouth daily, for edema FUROSEMIDE 77849860519 No Longer Active Yolande Lindsay MD PhD Active ATORVASTATIN CALCIUM 10 MG TABS 1 pill by mouth daily, for cholesterol 09/06 ATORVASTATIN CALCIUM 62820778957 Active Yolande Lindsay MD PhD Active CALCIUM 600+D PLUS MINERALS 600-400 MG-UNIT ORAL CHEW 1 tab by mouth daily CALCIUM CARBONATE-VIT D-MIN 29982525305 No Longer Active Yolande Lindsay MD PhD Active CYCLOBENZAPRINE HCL 10 MG TABS 1 tablet by mouth three times daily as needed for muscle spasm/pain CYCLOBENZAPRINE HCL 83542605640 Active Yolande Lindsay MD PhD Active ONDANSETRON 4 MG TBDP 1 q4h PRN nausea ONDANSETRON 81591416785 Active Yolande Lindsay MD PhD Active ADULT ASPIRIN EC LOW STRENGTH 81 MG TBEC Take 1 tablet by mouth daily 2014 ASPIRIN 51896324517 No Longer Active Yolande Lindsay MD PhD Active ZOFRAN ODT 4 MG TBDP 1 pill dissolved by mouth every 4 hours if needed for nausea ONDANSETRON 60178283961 No Longer Active Yolande Lindsay MD PhD Active CEFTIN 500 MG TAB 1 twice a day CEFUROXIME AXETIL 52294004953 No Longer Active Yolande Lindsay MD PhD Active ALBUTEROL SULFATE 0.083 % NEBU SOLN one vial per nebulizer every 4-6 hours as needed ALBUTEROL SULFATE 01887636170 No Longer Active Alexis Ordaz MD Active DOXYCYCLINE HYCLATE 100 MG CAP 1 cap by mouth twice daily DOXYCYCLINE HYCLATE 30760592864 No Longer Active Yolande Lindsay MD PhD Active CYCLOBENZAPRINE HCL 10 MG TABS 1/2 - 1 tab by mouth three times daily if needed for spasms/pain CYCLOBENZAPRINE HCL 61063234946 No Longer Active Yolande Lindsay MD PhD Active AZITHROMYCIN 250 MG TABS 2 pills on day 1, then 1 pill daily x 4 days AZITHROMYCIN 34665718563 No Longer Active Yolande Lindsay MD PhD Active XOPENEX 1.25 MG/3ML NEBU 1 neb every 4 hours if needed for cough/congestion LEVALBUTEROL HCL 30070388366 No Longer Active Yolande Lindsay MD PhD Active DOXYCYCLINE HYCLATE 100 MG TAB 1 tab twice a day for 14 days 2013 DOXYCYCLINE HYCLATE 21692281373 No Longer Active Yolande Lindsay MD PhD Active PREVACID 30 MG CPDR Take 1 tablet by mouth daily-PRN LANSOPRAZOLE 59937546591 No Longer Active Yolande Lindsay MD PhD Active PA VITAMIN D-3 2000 UNIT CAPS 1 CAP PO DAILY CHOLECALCIFEROL 13564891614 No Longer Active Yolande Lindsay MD PhD Active CEFDINIR 300 MG CAPS by mouth twice a day CEFDINIR 35236073941 No Longer Active Gab Padron MD Active TOPAMAX 50 MG TABS 1 PO twice daily TOPIRAMATE 30146839941 Active Yolande Lindsay MD PhD Active AZITHROMYCIN 250 MG TABS 2 po qd x 1 day, then 1 po qd x 4 days AZITHROMYCIN 79527528825 No Longer Active Yolande Lindsay MD PhD Active DICLOFENAC SODIUM 75 MG TBEC 1 tablet by q 12 hours PRN headaches DICLOFENAC SODIUM 66074944088 No Longer Active Yolande Lindsay MD PhD Active FLONASE 50 MCG/ACT SUSP 1 spray each nostril am and hs FLUTICASONE PROPIONATE 89319308869 No Longer Active Todd Callaway MD Active ANUSOL-HC 25 MG SUPPOSITORY 1 rectally twice a day as needed for hemorrhoids HYDROCORTISONE JAYDEN (RECTAL) 46800373957 No Longer Active Yolande Lindsay MD PhD Active ANUSOL-HC 25 MG SUPPOSITORY 1 suppository rectally each evening as needed for anal fissure HYDROCORTISONE JAYDEN (RECTAL) 00757251803 No Longer Active LONNIE Iglesias Active VALIUM 5 MG TAB 1 po 30 minutes prior to your MRI DIAZEPAM 79295587123 No Longer Active LONNIE Iglesias Active METHOCARBAMOL 750 MG TABS 1 PO QID PRN METHOCARBAMOL 50869180864 No Longer Active Daphne Wetzel APRN Active NITROSTAT 0.4 MG SUBL as directed NITROGLYCERIN 41181537411 No Longer Active Rodrigo Sarah APRN Active ROBAXIN-750 750 MG TABS 2 four times a day for 3 days as needed for muscle spasm, then 1 four times a day as needed METHOCARBAMOL 43404144706 No Longer Active Rodrigo Sarah APRN Active HYDROCODONE-ACETAMINOPHEN 5-325 MG TABS 1 q 4-6 hrs prn HYDROCODONE-ACETAMINOPHEN 44631597982 No Longer Active Rodrigo Sarah APRN Active VERAPAMIL HCL CR 180 MG CR-TABS TAKE 1 TAB DAILY VERAPAMIL HCL 30702385368 No Longer Active Yolande Lindsay MD PhD Active BACTRIM DS 800-160 MG TAB 1 tab by mouth twice daily TRIMETHOPRIM-SULFAMETHOXAZOLE 61618219183 No Longer Active Yolande Lindsay MD PhD Active NEXIUM 40 MG PACK 1 by mouth daily ESOMEPRAZOLE MAGNESIUM 75390475331 No Longer Active Des Hines MD Active EPIPEN 2-CHARLETTE 0.3 MG/0.3ML OMARI as need for allergic reaction EPINEPHRINE 32044878037 Active Yolande Lindsay MD PhD Active NEXIUM 40 MG CPDR 1 PO Q D DAY ESOMEPRAZOLE MAGNESIUM 67753105729 No Longer Active Sadia Perry RN Active NEXIUM 40 MG PACK 1 by mouth daily NEXIUM 40 MG PACK ESOMEPRAZOLE MAGNESIUM Inactive VERAPAMIL HCL CR 180 MG CR-TABS TAKE 1 TAB DAILY VERAPAMIL HCL CR 180 MG CR-TABS VERAPAMIL HCL Inactive HYDROCODONE-ACETAMINOPHEN 5-325 MG TABS 1 q 4-6 hrs prn HYDROCODONE-ACETAMINOPHEN 5-325 MG TABS 445004 HYDROCODONE-ACETAMINOPHEN Inactive ROBAXIN-750 750 MG TABS 2 four times a day for 3 days as needed for muscle spasm, then 1 four times a day as needed ROBAXIN-750 750 MG TABS 824910 METHOCARBAMOL Inactive NITROSTAT 0.4 MG SUBL as directed NITROSTAT 0.4 MG SUBL NITROGLYCERIN Inactive METHOCARBAMOL 750 MG TABS 1 PO QID PRN METHOCARBAMOL 750 MG TABS 262549 METHOCARBAMOL Inactive VALIUM 5 MG TAB 1 po 30 minutes prior to your MRI VALIUM 5 MG TAB 008208 DIAZEPAM Inactive ANUSOL-HC 25 MG SUPPOSITORY 1 suppository rectally each evening as needed for anal fissure ANUSOL-HC 25 MG SUPPOSITORY 7189936 HYDROCORTISONE JAYDEN (RECTAL) Inactive ANUSOL-HC 25 MG SUPPOSITORY 1 rectally twice a day as needed for hemorrhoids ANUSOL-HC 25 MG SUPPOSITORY 7171110 HYDROCORTISONE JAYDEN (RECTAL) Inactive FLONASE 50 MCG/ACT SUSP 1 spray each nostril am and hs FLONASE 50 MCG/ACT SUSP FLUTICASONE PROPIONATE Inactive DICLOFENAC SODIUM 75 MG TBEC 1 tablet by q 12 hours PRN headaches DICLOFENAC SODIUM 75 MG TBEC 084320 DICLOFENAC SODIUM Inactive PA VITAMIN D-3 2000 UNIT CAPS 1 CAP PO DAILY PA VITAMIN D-3 2000 UNIT CAPS CHOLECALCIFEROL Inactive PREVACID 30 MG CPDR Take 1 tablet by mouth daily-PRN PREVACID 30 MG CPDR 126567 LANSOPRAZOLE Inactive DOXYCYCLINE HYCLATE 100 MG TAB 1 tab twice a day for 14 days 2013 DOXYCYCLINE HYCLATE 100 MG TAB 8122735 DOXYCYCLINE HYCLATE Inactive XOPENEX 1.25 MG/3ML NEBU 1 neb every 4 hours if needed for cough/congestion XOPENEX 1.25 MG/3ML NEBU 435642 LEVALBUTEROL HCL Inactive CYCLOBENZAPRINE HCL 10 MG TABS 1/2 - 1 tab by mouth three times daily if needed for spasms/pain CYCLOBENZAPRINE HCL 10 MG TABS 184513 CYCLOBENZAPRINE HCL Inactive ALBUTEROL SULFATE 0.083 % NEBU SOLN one vial per nebulizer every 4-6 hours as needed ALBUTEROL SULFATE 0.083 % NEBU SOLN 092221 ALBUTEROL SULFATE Inactive CEFTIN 500 MG TAB 1 twice a day CEFTIN 500 MG TAB 736887 CEFUROXIME AXETIL Inactive ZOFRAN ODT 4 MG TBDP 1 pill dissolved by mouth every 4 hours if needed for nausea ZOFRAN ODT 4 MG TBDP 478385 ONDANSETRON Inactive ADULT ASPIRIN EC LOW STRENGTH 81 MG TBEC Take 1 tablet by mouth daily 2014 ADULT ASPIRIN EC LOW STRENGTH 81 MG TBEC 859596 ASPIRIN Inactive CALCIUM 600+D PLUS MINERALS 600-400 [...] or an apple NIACIN 500 MG TABS 836863 NIACIN Inactive NIASPAN 500 MG ORAL CR-TABS 1 pill nightly x 1 week, then 2 pills nightly x 1 week, then 3 pills nightly x 1 week, then 4 pills nightly NIASPAN 500 MG ORAL CR-TABS NIACIN (ANTIHYPERLIPIDEMIC) Inactive OXYCODONE HCL 5 MG ORAL CAPS 1 TAB PO Q HS OXYCODONE HCL 5 MG ORAL CAPS 8397685 OXYCODONE HCL Inactive FLUTICASONE PROPIONATE 50 MCG/ACT SUSP 1 to 2 sprays each nostril daily 04/21 FLUTICASONE PROPIONATE 50 MCG/ACT SUSP 894646 FLUTICASONE PROPIONATE Inactive POLYTRIM 40845-7.1 UNIT/ML-% SOLN 1 gtt to affected eye q3h x 7 days POLYTRIM 74427-3.1 UNIT/ML-% SOLN 825123 POLYMYXIN B- TRIMETHOPRIM Inactive CHERATUSSIN AC 100-10 MG/5ML SYRP 1 tsp by mouth every 4 hours as needed for cough CHERATUSSIN AC 100-10 MG/5ML SYRP 282849 GUAIFENESIN-CODEINE Inactive LEVOTHYROXINE SODIUM 75 MCG TABS Take 1 tab daily LEVOTHYROXINE SODIUM 75 MCG TABS 042566 LEVOTHYROXINE SODIUM Inactive BACTRIM DS 800-160 MG TAB 1 tab by mouth twice daily BACTRIM DS 800-160 MG TAB 706189 TRIMETHOPRIM-SULFAMETHOXAZOLE Inactive AZITHROMYCIN 250 MG TABS 2 po qd x 1 day, then 1 po qd x 4 days AZITHROMYCIN 250 MG TABS 1706460 AZITHROMYCIN Inactive CEFDINIR 300 MG CAPS by mouth twice a day CEFDINIR 300 MG CAPS 757949 CEFDINIR Inactive AZITHROMYCIN 250 MG TABS 2 pills on day 1, then 1 pill daily x 4 days AZITHROMYCIN 250 MG TABS 2572957 AZITHROMYCIN Inactive DOXYCYCLINE HYCLATE 100 MG CAP 1 cap by mouth twice daily DOXYCYCLINE HYCLATE 100 MG CAP 1784006 DOXYCYCLINE HYCLATE Inactive FUROSEMIDE 20 MG TABS 1 pill by mouth daily, for edema FUROSEMIDE 20 MG TABS 866784 FUROSEMIDE Inactive AZITHROMYCIN 250 MG TABS 2 po qd x 1 day, then 1 po qd x 4 days AZITHROMYCIN 250 MG TABS 5928995 AZITHROMYCIN Inactive CEFTIN 500 MG TAB 1 twice a day CEFTIN 500 MG TAB 874717 CEFUROXIME AXETIL Inactive CEFDINIR 300 MG CAPS 1 po BID x 10 days CEFDINIR 300 MG CAPS 190249 CEFDINIR Inactive Immunizations Vaccine Administration Date Value Standard Description Seasonal influenza vaccine, injectable, containing preservative, for > 3 years old (Afluria, FluLaval, Fluzone, Fluvirin, Fluarix, Agriflu(>=18 yo)) Fluzone (>3 yrs.) [AKZ959] Influenza, seasonal, injectable influenza immunization (Flu Vax) has been administered Influenza - Unspecified Formulation [CVX88] influenza virus vaccine, unspecified formulation Seasonal influenza vaccine, injectable, containing preservative, for > 3 years old (Afluria, FluLaval, Fluzone, Fluvirin, Fluarix, Agriflu(>=18 yo)) Fluzone (>3 yrs.) [AXH417] Influenza, seasonal, injectable pneumococcal immunization administered Pneumovax 23 [CVX33] pneumococcal polysaccharide vaccine, 23 valent dT (Diphtheria and Tetanus) booster given given Td(adult) unspecified formulation Boostrix (Tetanus toxoid, reduced diphtheria toxoid and acellular pertussis vaccine, adsorbed), booster Boostrix [UNV232] tetanus toxoid, reduced diphtheria toxoid, and acellular [...] Panel - Chemistry sodium, serum 145 mmol/L 167-296 3142/06/22 potassium, serum 3.9 mmol/L 3.5-5.2 chloride, serum 109 mmol/L 98-107 carbon dioxide, venous blood 23.4 mmol/L 21.0-32.0 blood glucose 92 mg/dL 65-110 calcium, serum 8.2 mg/dL 8.5-10.1 urea nitrogen, blood 24 mg/dL 7-18 creatinine, serum 1.30 mg/dL 0.60-1.30 Lab Report: [facility] Advanced Lipid and Inlammation Panel /42695 - Chemistry cholesterol, serum 198 mg/dL 703-400 0601/04/30 HDL cholesterol, serum 65 mg/dL > OR=46 triglyceride, serum, fasting 82 mg/dL LDL cholesterol, serum 117 mg/dL cholesterol/HDL ratio, serum 3.0 calc < OR=5.0 cholesterol, serum 148 mg/dL 388-055 7363/09/02 HDL cholesterol, serum 55 mg/dL > OR=46 [...] (L) - Chemistry sodium, serum 145 mmol/L 991-536 0965/09/02 potassium, serum 4.6 mmol/L 3.5-5.2 chloride, serum [...] Rate - Chemistry sodium, serum 139 mmol/L 662-174 6566/03/24 carbon dioxide, venous blood 22.4 mmol/L 21.0-32.0 [...] 51 mg/dL 30-200 cholesterol, serum 173 mg/dL 443-318 9406/04/28 HDL cholesterol, serum 63 mg/dL 32-96 LDL [...] mg/dL Encounters Code Encounter Date Provider Facility CPT-99491 Level 3 Est. Patient 11:30:07 CDT Rodrigo Sarah APRN [facility] CPT-88248 Level 4 Est. Patient 21:02:30 JAILER CHIEF Gab Padron MD [facility] CPT-14482 Level 3 Est. Patient 11:02:19 JAILER CHIEF Gab Padron MD [facility] CPT-33322 Level 4 Est. Patient 22:24:31 JAILER CHIEF Gab Padron MD [facility] CPT-66908 Level 3 Est. Patient 18:33:46 JAILER CHIEF Gab Padron MD [facility] CPT-83524 Level 3 Est. Patient 16:19:11 CDT Yolande Lindsay MD PhD [facility] CPT-62338 Level 3 Est. Patient 18:59:14 CDT Yolande Lindsay MD PhD [facility] CPT-71027 Level 4 Est. Patient 21:29:26 CDT Yolande Lindsay MD PhD [facility] CPT-08286 Level 3 Est. Patient 07:37:45 CDT Yolande Lindsay MD PhD [facility]-88023 Level 3 Est. Patient 17:03:46 CDT Yolande Lindsay MD [facility]-81907 Level 4 Est. Patient 20:02:13 JAILER CHIEF Yolande Lindsay MD [facility]-44692 Level 3 Est. Patient 16:02:07 JAILER CHIEF Alexis Ordaz MD [facility]-47529 Level 3 Est. Patient 12:41:24 JAILER CHIEF Yolande Lindsay MD [facility]-54705 Level 3 Est. Patient 15:41:20 JAILER CHIEF Yolande Lindsay MD [facility]-57358 Level 3 Est. Patient 13:20:02 JAILER CHIEF Yolande Lindsay MD [facility]-88721 Level 3 Est. Patient 15:00:38 CDT Jared Og MD [facility]-18977 Level 3 Est. Patient 10:22:32 CDT Yolande Lindsay MD [facility] CPT-01412 Level 3 Est. Patient 17:12:58 CDT Yolande Lindsay MD [facility]-28537 Level 4 Est. Patient 13:30:58 CDT Yolande Lindsay MD [facility] CPT-76472 Level 4 New Patient 09:02:42 CDT Jared Og MD [facility]-72987 Level 3 Est. Patient 08:19:07 CDT Yolande Lindsay MD [facility]-77457 Level 3 Est. Patient 12:00:13 JAILER CHIEF Gab Padron MD [facility]-58364 Level 3 Est. Patient 16:15:23 JAILER CHIEF Yolande Lindsay MD [facility]-40491 Level 2 Est. Patient 19:47:15 CDT Yolande Lindsay MD [facility]-05530 Level 3 Est. Patient 21:38:31 CDT Yolande Lindsay MD [facility]-08682 Level 3 Est. Patient 10:25:12 CDT Adiel Rodríguezozzie PERAZA [facility]-74969 Level 4 Est. Patient 10:51:58 CDT Yolande Lindsay MD [facility]01399 Level 3 Est. Patient 14:04:55 JAILER CHIEF Rodrigo Sarah [facility]-04333 Level 3 Est. Patient 10:46:35 JAILER CHIEF Rodrigo Sarah [facility]-46383 Level 3 Est. Patient 14:24:37 JAILER CHIEF Yolande Lindsay MD [facility]-64661 Level 3 Est. Patient 17:41:58 JAILER CHIEF Yolande Lindsay MD [facility]-40116 Level 2 Est. Patient 22:01:41 JAILER CHIEF Rodrigo Sarah [facility]-07512 Level 2 Est. Patient 22:01:11 JAILER CHIEF Rodrigo Sarah [facility]-24589 Level 3 Est. Patient 10:12:29 JAILER CHIEF Rodrigo Sarah [facility]-99964 Level 3 Est. Patient 11:05:44 CDT Alexis Ordaz MD [facility]-42034 Level 3 Est. Patient 14:57:20 CDT Yolande Lindsay MD [facility]37425 Level 3 Est. Patient 14:40:57 CDT Yolande Lindsay MD [facility]37001 Level 3 Est. Patient 20:55:40 CDT Yolande Lindsay MD PhD [facility] CPT-72739 Level 3 Est. Patient 12:42:38 JAILER CHIEF Yolande Lindsay MD PhD [facility] CPT-39547 Level 3 Est. Patient 11:54:49 JAILER CHIEF Des Hines MD [facility] CPT-69121 Level 3 Est. Patient 17:06:38 CDT Dewayne PERAZA [facility] Procedures Code Procedure Name Date Entry Date Standard Description CPT-95284 LS spine comp w obliq 13:28:00 JAILER CHIEF CPT-J1040 Depo Medrol 80 mg (Methyl Prednisolone Acetate) 10:51: 28 JAILER CHIEF CPT-J1100 Decadron 8mg (Dexamethasone) 10:51:28 JAILER CHIEF CPT-40723 Abx/Therapy Injection 10:51:28 JAILER CHIEF CPT-J1100 Decadron 8mg (Dexamethasone) 21:02:30 JAILER CHIEF CPT-J1040 Depo Medrol 80 mg (Methyl Prednisolone Acetate) 21:02: 30 JAILER CHIEF [id number] Event Monitor - MC Transmission 09:12:32 CDT 08/06 [id number] Event Monitor - MC review and interp 09:12:32 CDT [id number] Event Monitor - MC recording 09:12:32 CDT CPT-45184 EKG Trac and Interp 16:50:22 CDT CPT-J1030 Depo Medrol 40 mg (Methyl Prednisolone Acetate) 17:05: 54 CDT CPT-J1100 Decadron 4mg (Dexamethasone) 17:05:54 CDT CPT-11886 Abx/Therapy Injection 17:05:54 CDT CPT-J1100 Decadron 4mg (Dexamethasone) 16:55:28 CDT CPT-J1030 Depo Medrol 40 mg (Methyl Prednisolone Acetate) 16:55: 28 CDT CPT-71430 Ankle Complete - Min 3V 15:58:50 CDT CPT-04563 Knee 3V 15:58:50 CDT CPT-31209 Hip comp min 2V 15:58:50 CDT CPT-J2270 Morphine Sulfate 10 mg 14:25:44 JAILER CHIEF CPT-J2550 Phenergan 12.5 mg (Promethazine) 14:25:44 JAILER CHIEF CPT-87597 Abx/Therapy Injection 14:25:44 JAILER CHIEF CPT-J2550 Phenergan 12.5 mg (Promethazine) 14:08:03 JAILER CHIEF CPT-J2270 Morphine Sulfate 10 mg 14:08:03 JAILER CHIEF CPT-41791 Bladder Scan 15:00:38 CDT CPT-TCMM Transitional Care Mgmt-Moderate 09:52:22 CDT CPT-J1030 Depo Medrol 40 mg (Methyl Prednisolone Acetate) 10:55: 18 CDT CPT-J1100 Decadron 4mg (Dexamethasone) 10:55:18 CDT CPT-09045 Abx/Therapy Injection 10:55:18 CDT CPT-J1030 Depo Medrol 40 mg (Methyl Prednisolone Acetate) 10:22: 32 CDT CPT-J1100 Decadron 4mg (Dexamethasone) 10:22:32 CDT CPT-11428 Postop F/U Visit 14:37:13 CDT CPT-79658 Ankle Complete - Min 3V 17:11:58 CDT CPT-42547 Foot comp min 3V 17:11:58 CDT CPT-55311 Bladder Scan 09:56:58 CDT CPT-29786 Postop F/U Visit 09:56:58 CDT CPT-83927 Cystoscopy 09:02:42 CDT CPT-42073 Bladder Scan 09:02:42 CDT CPT-51465 Abd single AP View 16:00:35 CDT CPT-31469 Administration single or combination vaccine inc oral 10 :15:43 CDT CPT-95040 Influenza split virus > age 3 10:15:43 CDT CPT-26314 Nail Avulsion 09:24:57 CDT CPT-OV Office Visit 11:15:41 CDT CPT-40934 Abx/Therapy Injection 10:51:30 CDT CPT-J3301 Kenalog 40 mg (Triamcinolone Acetonide) 10:25:12 CDT CPT-J1100 Decadron 4mg (Dexamethasone) 10:25:12 CDT CPT-26509 Anoscopy diagnostic 10:36:12 CDT CPT-OV Office Visit 15:34:31 CDT CPT-19270 Abx/Therapy Injection 08:21:15 JAILER CHIEF CPT-J1885 Toradol 60 mg (Ketorolac) 10:46:35 JAILER CHIEF CPT-OV Office Visit 19:51:16 JAILER CHIEF CPT-37033 Spec Collection and Handling Fee 14:34:18 JAILER CHIEF CPT-PV Prev. Care Visit 14:19:18 JAILER CHIEF CPT-13254 Postop F/U Visit 14:47:51 JAILER CHIEF CPT-02795 Postop F/U Visit 15:15:14 JAILER CHIEF CPT-01423 Postop F/U Visit 14:41:43 CDT CPT-42654 Postop F/U Visit 15:47:46 CDT CPT-OV Office Visit 15:27:23 CDT CPT-OV Office Visit 17:20:34 CDT CPT-33758 Abx/Therapy Injection 15:05:57 CDT CPT-J1100 Decadron 8mg (Dexamethasone) 14:44:57 CDT CPT-J1040 Depo Medrol 80 mg (Methyl Prednisolone Acetate) 14:44: 57 CDT CPT-JTINJ Joint Injection 10:17:37 CDT CPT-94862 Administration 2+ single or combination vaccines inc oral 13:01:46 JAILER CHIEF CPT-56013 Administration single or combination vaccine inc oral 13 :01:46 JAILER CHIEF CPT-91773 Pneumovax 13:01:46 JAILER CHIEF CPT-86617 Influenza split virus > age 3 13:01:46 JAILER CHIEF CPT-76848 Administration single or combination vaccine inc oral 08 :56:49 CDT CPT-19144 Tdap 08:56:49 CDT
--- OUTSIDE RECORDS SUMMARY | 2017-03-21 21:13 | XMS REPORT | Clinical Summary ---
Author Author Admin, E Organization [facility] Address Unknown Phone Unavailable Allergies, Adverse Reactions, Alerts Allergy Name Reaction Description Start Date Severity Status Provider VALENTIN Critical Active Rodrigo Fracharlottel PEDIATRIC NP CHLORHEXIDINE GLUCONATE tongue and gums swollen Critical Active Hoa Otto RMA NORFLEX Rash Critical Active Silvestrellina Frazell PEDIATRIC NP TRAZODONE HCL sees things Critical Active Dewayne [...] Old myocardial infarction Pelvic pain 789.09 Active Yloande Lindsay MD PhD Abdominal pain, other specified site; multiple sites Edema 782.3 Active Yolande Lindsay MD PhD Edema Rash 782.1 Active Yolande Lindsay MD PhD Rash and other nonspecific skin eruption Back pain, lumbar 724.2 Active Gab Padron MD Lumbago Cough 786.2 Active Jillina Tyrel PEDIATRIC NP Cough 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 Jillina Frazellilian PEDIATRIC NP 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 Anemia 285.9 Active Gab Padron MD Anemia, unspecified Conjunctivitis 372.30 Active Jillnacho Sarah APRN Conjunctivitis, unspecified Sinusitis 473.9 Active Silvestrellina Frazell PEDIATRIC NP Unspecified sinusitis (chronic) Nonspecific syndrome suggestive of viral illness 079.99 Active Jillina Siml PEDIATRIC NP Unspecified viral infection Laryngitis 464.00 Active Jillina Farshadzell PEDIATRIC NP Acute laryngitis without mention of obstruction Abdominal [...] Flank pain, left 789.09 Active Jillina Siml PEDIATRIC NP Abdominal pain, other specified site; multiple sites Abdominal pain, generalized 789.07 Active Jillina Siml PEDIATRIC NP Abdominal pain, generalized Back pain, thoracic region, left 724.1 Active Jillina Farshadzell PEDIATRIC NP Pain in thoracic spine FOOT PAIN, RIGHT [...] PhD Hip pain, left ICD-719.45 Inactive Yolande iLndsay MD PhD Sinusitis, maxillary, acute ICD-461.0 Inactive [...] TBDP 1 po q6hr PRN Nausea ONDANSETRON 55101407458 Active Jillina Frazell PEDIATRIC NP Active IBUPROFEN 600 MG TAB 1 tablet by mouth every 6 hours for 7 days, then 1 tablet every 6 hours as needed. Take with food IBUPROFEN 39908212689 Active Jillina Frazell PEDIATRIC NP Active BACTRIM DS 800-160 MG TAB 1 tab by mouth twice daily TRIMETHOPRIM-SULFAMETHOXAZOLE 30951213603 No Longer Active Gab Padron MD Active ADVAIR DISKUS 250-50 MCG/DOSE AEPB 1 puff BID FLUTICASONE- SALMETEROL 27475890037 Active Jillina Frazell PEDIATRIC NP Active LEVOTHYROXINE SODIUM 75 MCG TABS Take 1 tab daily LEVOTHYROXINE SODIUM 17292092076 No Longer Active Mariana FLEMING Active SYNTHROID 88 MCG ORAL TABS Take one by mouth daily LEVOTHYROXINE SODIUM 72874623196 Active Mariana FLEMING Active CHERATUSSIN AC 100-10 MG/5ML SYRP 1 tsp by mouth every 4 hours as needed for cough GUAIFENESIN-CODEINE 10753993331 No Longer Active Gab Padron MD Active POLYTRIM 55324-4.1 UNIT/ML-% SOLN 1 gtt to affected eye q3h x 7 days POLYMYXIN B-TRIMETHOPRIM 98393943987 No Longer Active Gab Padron MD Active FLUTICASONE PROPIONATE 50 MCG/ACT SUSP 1 to 2 sprays each nostril daily 04/21 FLUTICASONE PROPIONATE 24264918447 No Longer Active Gab Padron MD Active TRILEPTAL 600 MG TABS Take one 1 tablet in Am and 1 tablet at night OXCARBAZEPINE 43198483541 Active Gab Padron MD Active CEFDINIR 300 MG CAPS 1 po BID x 10 days CEFDINIR 57220435457 No Longer Active Rodrigo Sarah APRN Active CEFTIN 500 MG TAB 1 twice a day CEFUROXIME AXETIL 22576271263 No Longer Active Gab Padron MD Active AZITHROMYCIN 250 MG TABS 2 po qd x 1 day, then 1 po qd x 4 days AZITHROMYCIN 65442506749 No Longer Active Rodrigo Sarah APRN Active CLARITIN 10 MG TAB 1 tablet by mouth daily as needed for allergies LORATADINE 61259297191 Active Rodrigo Sarah APRN Active OXYCODONE HCL 5 MG ORAL CAPS 1 TAB PO Q HS OXYCODONE HCL 62937515123 No Longer Active Rodrigo Sarah APRN Active NIASPAN 500 MG ORAL CR-TABS 1 pill nightly x 1 week, then 2 pills nightly x 1 week, then 3 pills nightly x 1 week, then 4 pills nightly NIACIN (ANTIHYPERLIPIDEMIC) 08488587938 No Longer Active Rodrigo Sarah APRN Active NIACIN 500 MG TABS 1 pill by mouth nightly x 1 week, then 2 pills x 1 week, then 3 pills x 1 week, then 4 pills nightly - take after evening meal, with applesauce or an apple NIACIN 44008271252 No Longer Active Yolande Lindsay MD PhD Active FISH OIL 1000 MG CAPS 3 pills daily OMEGA-3 FATTY ACIDS 49698002576 Active Yolande Lindsay MD PhD Active TRIAMCINOLONE ACETONIDE 0.1 % CREA apply bid sparingly to rash TRIAMCINOLONE ACETONIDE 25043434556 Active Yolande Lindsay MD PhD Active FUROSEMIDE 20 MG TAB 1 tablet by mouth daily FUROSEMIDE 38880876464 Active iTsha Lambert PEDIATRIC NP Active LISINOPRIL 20 MG ORAL TABS 1 tab by mouth daily LISINOPRIL 06943921109 Active Gab Padron MD Active FUROSEMIDE 20 MG TABS 1 pill by mouth daily, for edema FUROSEMIDE 54638565908 No Longer Active Yolande Lindsay MD PhD Active ATORVASTATIN CALCIUM 10 MG TABS 1 pill by mouth daily, for cholesterol 09/06 ATORVASTATIN CALCIUM 58512873364 Active Gab Padron MD Active CALCIUM 600+D PLUS MINERALS 600-400 MG-UNIT ORAL CHEW 1 tab by mouth daily CALCIUM CARBONATE-VIT D-MIN 08898907614 No Longer Active Yolande Lindsay MD PhD Active CYCLOBENZAPRINE HCL 10 MG TABS 1 tablet by mouth three times daily as needed for muscle spasm/pain CYCLOBENZAPRINE HCL 80867134580 Active Yolande Lindsay MD PhD Active ONDANSETRON 4 MG TBDP 1 q4h PRN nausea ONDANSETRON 28585269260 Active Yolande Lindsay MD PhD Active ADULT ASPIRIN EC LOW STRENGTH 81 MG TBEC Take 1 tablet by mouth daily 2014 ASPIRIN 77396219155 No Longer Active Yolande Lindsay MD PhD Active ZOFRAN ODT 4 MG TBDP 1 pill dissolved by mouth every 4 hours if needed for nausea ONDANSETRON 22695405195 No Longer Active Yolande Lindsay MD PhD Active CEFTIN 500 MG TAB 1 twice a day CEFUROXIME AXETIL 75468236184 No Longer Active Yolande Lindsay MD PhD Active ALBUTEROL SULFATE 0.083 % NEBU SOLN one vial per nebulizer every 4-6 hours as needed ALBUTEROL SULFATE 23510291040 No Longer Active Alexis Ordaz MD Active DOXYCYCLINE HYCLATE 100 MG CAP 1 cap by mouth twice daily DOXYCYCLINE HYCLATE 80471673547 No Longer Active Yolande Lindsay MD PhD Active CYCLOBENZAPRINE HCL 10 MG TABS 1/2 - 1 tab by mouth three times daily if needed for spasms/pain CYCLOBENZAPRINE HCL 54093084077 No Longer Active Yolande Lindsay MD PhD Active AZITHROMYCIN 250 MG TABS 2 pills on day 1, then 1 pill daily x 4 days AZITHROMYCIN 02670121694 No Longer Active Yolande Lindsay MD PhD Active XOPENEX 1.25 MG/3ML NEBU 1 neb every 4 hours if needed for cough/congestion LEVALBUTEROL HCL 99886422020 No Longer Active Yolande Lindsay MD PhD Active DOXYCYCLINE HYCLATE 100 MG TAB 1 tab twice a day for 14 days 2013 DOXYCYCLINE HYCLATE 88708559739 No Longer Active Yolande Lindsay MD PhD Active PREVACID 30 MG CPDR Take 1 tablet by mouth daily-PRN LANSOPRAZOLE 66625375079 No Longer Active Yolande Lindsay MD PhD Active PA VITAMIN D-3 2000 UNIT CAPS 1 CAP PO DAILY CHOLECALCIFEROL 65821592790 No Longer Active Yolande Lindsay MD PhD Active CEFDINIR 300 MG CAPS by mouth twice a day CEFDINIR 43306033048 No Longer Active Gab Padron MD Active TOPAMAX 50 MG TABS 1 PO twice daily TOPIRAMATE 29940497866 Active Yolande Lindsay MD PhD Active AZITHROMYCIN 250 MG TABS 2 po qd x 1 day, then 1 po qd x 4 days AZITHROMYCIN 92959197750 No Longer Active Yolande Lindsay MD PhD Active DICLOFENAC SODIUM 75 MG TBEC 1 tablet by q 12 hours PRN headaches DICLOFENAC SODIUM 52522830822 No Longer Active Yolande Lindsay MD PhD Active FLONASE 50 MCG/ACT SUSP 1 spray each nostril am and hs FLUTICASONE PROPIONATE 01807258700 No Longer Active Todd Callwaay MD Active ANUSOL-HC 25 MG SUPPOSITORY 1 rectally twice a day as needed for hemorrhoids HYDROCORTISONE JAYDEN (RECTAL) 37063519469 No Longer Active Yolande Lindsay MD PhD Active ANUSOL-HC 25 MG SUPPOSITORY 1 suppository rectally each evening as needed for anal fissure HYDROCORTISONE JAYDEN (RECTAL) 90676468914 No Longer Active LONNIE Iglesias Active VALIUM 5 MG TAB 1 po 30 minutes prior to your MRI DIAZEPAM 09435338414 No Longer Active LONNIE Iglesias Active METHOCARBAMOL 750 MG TABS 1 PO QID PRN METHOCARBAMOL 74533915899 No Longer Active Daphne Wetzel PEDIATRIC NP Active NITROSTAT 0.4 MG SUBL as directed NITROGLYCERIN 16756156502 No Longer Active Rodrigo Sarah APRN Active ROBAXIN-750 750 MG TABS 2 four times a day for 3 days as needed for muscle spasm, then 1 four times a day as needed METHOCARBAMOL 25237674095 No Longer Active Rodrigo Sarah APRN Active HYDROCODONE-ACETAMINOPHEN 5-325 MG TABS 1 q 4-6 hrs prn HYDROCODONE-ACETAMINOPHEN 87197389325 No Longer Active Silvestrellnacho Sarah APRN Active VERAPAMIL HCL CR 180 MG CR-TABS TAKE 1 TAB DAILY VERAPAMIL HCL 35886411175 No Longer Active Yolande Lindsay MD PhD Active BACTRIM DS 800-160 MG TAB 1 tab by mouth twice daily TRIMETHOPRIM-SULFAMETHOXAZOLE 58683206834 No Longer Active Yolande Lindsay MD PhD Active NEXIUM 40 MG PACK 1 by mouth daily ESOMEPRAZOLE MAGNESIUM 64398809119 No Longer Active Des Hines MD Active EPIPEN 2-CHARLETTE 0.3 MG/0.3ML OMARI as need for allergic reaction EPINEPHRINE 38158034751 Active Yolande Lindsay MD PhD Active NEXIUM 40 MG CPDR 1 PO Q D DAY ESOMEPRAZOLE MAGNESIUM 75448304965 No Longer Active Sadia Perry RN Active NEXIUM 40 MG PACK 1 by mouth daily NEXIUM 40 MG PACK ESOMEPRAZOLE MAGNESIUM Inactive VERAPAMIL HCL CR 180 MG CR-TABS TAKE 1 TAB DAILY VERAPAMIL HCL CR 180 MG CR-TABS VERAPAMIL HCL Inactive HYDROCODONE-ACETAMINOPHEN 5-325 MG TABS 1 q 4-6 hrs prn HYDROCODONE-ACETAMINOPHEN 5-325 MG TABS 782789 HYDROCODONE-ACETAMINOPHEN Inactive ROBAXIN-750 750 MG TABS 2 four times a day for 3 days as needed for muscle spasm, then 1 four times a day as needed ROBAXIN-750 750 MG TABS 698341 METHOCARBAMOL Inactive NITROSTAT 0.4 MG SUBL as directed NITROSTAT 0.4 MG SUBL NITROGLYCERIN Inactive METHOCARBAMOL 750 MG TABS 1 PO QID PRN METHOCARBAMOL 750 MG TABS 324690 METHOCARBAMOL Inactive VALIUM 5 MG TAB 1 po 30 minutes prior to your MRI VALIUM 5 MG TAB 483305 DIAZEPAM Inactive ANUSOL-HC 25 MG SUPPOSITORY 1 suppository rectally each evening as needed for anal fissure ANUSOL-HC 25 MG SUPPOSITORY 6383014 HYDROCORTISONE JAYDEN (RECTAL) Inactive ANUSOL-HC 25 MG SUPPOSITORY 1 rectally twice a day as needed for hemorrhoids ANUSOL-HC 25 MG SUPPOSITORY 3795480 HYDROCORTISONE JAYDEN (RECTAL) Inactive FLONASE 50 MCG/ACT SUSP 1 spray each nostril am and hs FLONASE 50 MCG/ACT SUSP FLUTICASONE PROPIONATE Inactive DICLOFENAC SODIUM 75 MG TBEC 1 tablet by q 12 hours PRN headaches DICLOFENAC SODIUM 75 MG TBEC 472084 DICLOFENAC SODIUM Inactive PA VITAMIN D-3 2000 UNIT CAPS 1 CAP PO DAILY PA VITAMIN D-3 2000 UNIT CAPS CHOLECALCIFEROL Inactive PREVACID 30 MG CPDR Take 1 tablet by mouth daily-PRN PREVACID 30 MG CPDR 179646 LANSOPRAZOLE Inactive DOXYCYCLINE HYCLATE 100 MG TAB 1 tab twice a day for 14 days 2013 DOXYCYCLINE HYCLATE 100 MG TAB 1855024 DOXYCYCLINE HYCLATE Inactive XOPENEX 1.25 MG/3ML NEBU 1 neb every 4 hours if needed for cough/congestion XOPENEX 1.25 MG/3ML NEBU 905385 LEVALBUTEROL HCL Inactive CYCLOBENZAPRINE HCL 10 MG TABS 1/2 - 1 tab by mouth three times daily if needed for spasms/pain CYCLOBENZAPRINE HCL 10 MG TABS 459592 CYCLOBENZAPRINE HCL Inactive ALBUTEROL SULFATE 0.083 % NEBU SOLN one vial per nebulizer every 4-6 hours as needed ALBUTEROL SULFATE 0.083 % NEBU SOLN 962991 ALBUTEROL SULFATE Inactive CEFTIN 500 MG TAB 1 twice a day CEFTIN 500 MG TAB 690935 CEFUROXIME AXETIL Inactive ZOFRAN ODT 4 MG TBDP 1 pill dissolved by mouth every 4 hours if needed for nausea ZOFRAN ODT 4 MG TBDP 287011 ONDANSETRON Inactive ADULT ASPIRIN EC LOW STRENGTH 81 MG TBEC Take 1 tablet by mouth daily 2014 ADULT ASPIRIN EC LOW STRENGTH 81 MG TBEC 946069 ASPIRIN Inactive CALCIUM 600+D PLUS MINERALS 600-400 [...] or an apple NIACIN 500 MG TABS 274910 NIACIN Inactive NIASPAN 500 MG ORAL CR-TABS 1 pill nightly x 1 week, then 2 pills nightly x 1 week, then 3 pills nightly x 1 week, then 4 pills nightly NIASPAN 500 MG ORAL CR-TABS NIACIN (ANTIHYPERLIPIDEMIC) Inactive OXYCODONE HCL 5 MG ORAL CAPS 1 TAB PO Q HS OXYCODONE HCL 5 MG ORAL CAPS 6203205 OXYCODONE HCL Inactive FLUTICASONE PROPIONATE 50 MCG/ACT SUSP 1 to 2 sprays each nostril daily 04/21 FLUTICASONE PROPIONATE 50 MCG/ACT SUSP 078126 FLUTICASONE PROPIONATE Inactive POLYTRIM 47427-8.1 UNIT/ML-% SOLN 1 gtt to affected eye q3h x 7 days POLYTRIM 55465-4.1 UNIT/ML-% SOLN 628941 POLYMYXIN B- TRIMETHOPRIM Inactive CHERATUSSIN AC 100-10 MG/5ML SYRP 1 tsp by mouth every 4 hours as needed for cough CHERATUSSIN AC 100-10 MG/5ML SYRP 480518 GUAIFENESIN-CODEINE Inactive LEVOTHYROXINE SODIUM 75 MCG TABS Take 1 tab daily LEVOTHYROXINE SODIUM 75 MCG TABS 259792 LEVOTHYROXINE SODIUM Inactive BACTRIM DS 800-160 MG TAB 1 tab by mouth twice daily BACTRIM DS 800-160 MG TAB 010663 TRIMETHOPRIM-SULFAMETHOXAZOLE Inactive AZITHROMYCIN 250 MG TABS 2 po qd x 1 day, then 1 po qd x 4 days AZITHROMYCIN 250 MG TABS 5303588 AZITHROMYCIN Inactive CEFDINIR 300 MG CAPS by mouth twice a day CEFDINIR 300 MG CAPS 709544 CEFDINIR Inactive AZITHROMYCIN 250 MG TABS 2 pills on day 1, then 1 pill daily x 4 days AZITHROMYCIN 250 MG TABS 6026439 AZITHROMYCIN Inactive DOXYCYCLINE HYCLATE 100 MG CAP 1 cap by mouth twice daily DOXYCYCLINE HYCLATE 100 MG CAP 0729329 DOXYCYCLINE HYCLATE Inactive FUROSEMIDE 20 MG TABS 1 pill by mouth daily, for edema FUROSEMIDE 20 MG TABS 610398 FUROSEMIDE Inactive AZITHROMYCIN 250 MG TABS 2 po qd x 1 day, then 1 po qd x 4 days AZITHROMYCIN 250 MG TABS 9384145 AZITHROMYCIN Inactive CEFTIN 500 MG TAB 1 twice a day CEFTIN 500 MG TAB 402710 CEFUROXIME AXETIL Inactive CEFDINIR 300 MG CAPS 1 po BID x 10 days CEFDINIR 300 MG CAPS 340135 CEFDINIR Inactive BACTRIM DS 800-160 MG TAB 1 tab by mouth twice daily BACTRIM DS 800-160 MG TAB 035042 TRIMETHOPRIM-SULFAMETHOXAZOLE Inactive Immunizations Vaccine Administration Date Value Standard Description Seasonal influenza vaccine, injectable, containing preservative, for > 3 years old (Afluria, FluLaval, Fluzone, Fluvirin, Fluarix, Agriflu(>=18 yo)) Fluzone (>3 yrs.) [MBO604] Influenza, seasonal, injectable influenza immunization (Flu Vax) has been administered Influenza - Unspecified Formulation [CVX88] influenza virus vaccine, unspecified formulation Seasonal influenza vaccine, injectable, containing preservative, for > 3 years old (Afluria, FluLaval, Fluzone, Fluvirin, Fluarix, Agriflu(>=18 yo)) Fluzone (>3 yrs.) [YNS749] Influenza, seasonal, injectable pneumococcal immunization administered Pneumovax 23 [CVX33] pneumococcal polysaccharide vaccine, 23 valent dT (Diphtheria and Tetanus) booster given given Td(adult) unspecified formulation Boostrix (Tetanus toxoid, reduced diphtheria toxoid and acellular pertussis vaccine, adsorbed), booster Boostrix [VBR901] tetanus toxoid, reduced diphtheria toxoid, and acellular [...] Panel - Chemistry sodium, serum 142 mmol/L 836-511 7198/06/30 potassium, serum 4.4 mmol/L 3.5-5.2 chloride, serum 108 mmol/L 98-107 carbon dioxide, venous blood 25.1 mmol/L 21.0-32.0 blood glucose 82 mg/dL 65-110 calcium, serum 9.1 mg/dL 8.5-10.1 urea nitrogen, blood 18 mg/dL 7-18 creatinine, serum 1.31 mg/dL 0.55-1.30 Lab Report: [facility] Advanced Lipid and Inlammation Panel /09551 - Chemistry cholesterol, serum 148 mg/dL 902-346 1563/09/02 HDL cholesterol, serum 55 mg/dL > OR=46 triglyceride, serum, fasting 67 mg/dL LDL cholesterol, serum 80 mg/dL cholesterol/HDL ratio, serum 2.7 calc < OR=5.0 Lab Report: CBC - Hematology mean corpuscular hemoglobin, RBC 26.5 pg 27.0-31.2 mean corpuscular hemoglobin concentration, RBC 31.6 G/DL % 31.8- 35.4 red blood cell distribution width 15.7 % 11.6-14.8 platelet count 224 10^3/MM^3 10*3/mm3 767-855 8897/12/30 mean corpuscular volume, RBC 84 fL 80-97 [...] (L) - Chemistry sodium, serum 145 mmol/L 099-383 6860/09/02 potassium, serum 4.6 mmol/L 3.5-5.2 chloride, serum [...] Rate - Chemistry sodium, serum 139 mmol/L 943-438 3341/03/24 carbon dioxide, venous blood 22.4 mmol/L 21.0-32.0 [...] ... - Chemistry sodium, serum 143 mmol/L 178-270 6192/05/02 carbon dioxide, venous blood 25.6 mmol/L 21.0-32.0 [...] Negative mg/dL Negative sodium, serum 142 mmol/L 430-369 5130/07/18 carbon dioxide, venous blood 27.8 mmol/L 21.0-32.0 [...] mg/dL Encounters Code Encounter Date Provider Facility CPT-02915 Level 3 Est. Patient 10:29:41 CDT Rodrigo Sarah [facility] CPT-47399 Level 4 Est. Patient 17:51:05 CDT Gab Padron MD [facility] CPT-99643 Level 3 Est. Patient 14:18:08 CDT Gab Padron MD [facility] CPT-61876 Level 4 Est. Patient 10:18:54 CDT Gab Padron MD [facility] CPT-05142 Level 3 Est. Patient 11:30:07 CDT Rodrigo Sarah [facility] CPT-72966 Level 4 Est. Patient 21:02:30 [employer]ANE [employer] Gab Padron MD [facility] CPT-99473 Level 3 Est. Patient 11:02:19 AIRPLANE REFU[employer] Gab Padron MD [facility] CPT-96323 Level 4 Est. Patient 22:24:31 [employer]PLANE [employer] Gab Padron MD [facility] CPT-30052 Level 3 Est. Patient 18:33:46 [employer]PLANE [employer] Gab Padron MD [facility] CPT-40411 Level 3 Est. Patient 16:19:11 CDT Yolande Lindsay MD, PhD [facility] CPT-14792 Level 3 Est. Patient 18:59:14 CDT Yolande Lindsay MD [facility] CPT-60515 Level 4 Est. Patient 21:29:26 CDT Yolande Lindsay MD [facility]-44225 Level 3 Est. Patient 07:37:45 CDT Yolande Lindsay MD [facility]-72614 Level 3 Est. Patient 17:03:46 CDT Yolande Lindsay MD [facility]-50003 Level 4 Est. Patient 20:02:13 [employer]PLANE RE[employer] Yolande Lindsay MD [facility]-55893 Level 3 Est. Patient 16:02:07 AIRPLANE RE[employer] Alexis Ordaz MD [facility]-48063 Level 3 Est. Patient 12:41:24 [employer]PLANE REFU[employer] Yolande Lindsay MD [facility]-77698 Level 3 Est. Patient 15:41:20 [employer]PLANE RE[employer] Yolande Lindsay MD [facility]-53718 Level 3 Est. Patient 13:20:02 [employer]PLANE RE[employer] Yolande Lindsay MD [facility]-61044 Level 3 Est. Patient 15:00:38 CDT Jared Og MD [facility]-17758 Level 3 Est. Patient 10:22:32 CDT Yolande Lindsay MD [facility] CPT-49688 Level 3 Est. Patient 17:12:58 CDT Yolande Lindsay MD [facility]-96715 Level 4 Est. Patient 13:30:58 CDT Yolande Lindsay MD [facility] CPT-83067 Level 4 New Patient 09:02:42 CDT Jared Og MD [facility]-75123 Level 3 Est. Patient 08:19:07 CDT Yolande Lindsay MD [facility]-46202 Level 3 Est. Patient 12:00:13 [employer]PLANE RE[employer] Gab Padron MD [facility]-69783 Level 3 Est. Patient 16:15:23 AIRPLANE RE[employer] Yolande Lindsay MD [facility]11499 Level 2 Est. Patient 19:47:15 CDT Yolande Lindsay MD [facility]-58379 Level 3 Est. Patient 21:38:31 CDT Yolande Lindsay MD [facility]-41389 Level 3 Est. Patient 10:25:12 CDT Adiel PERAZA [facility]-60825 Level 4 Est. Patient 10:51:58 CDT Yolande Lindsay MD [facility]-56837 Level 3 Est. Patient 14:04:55 [employer]PLANE RE[employer] Rodrigo Sarah [facility]-38026 Level 3 Est. Patient 10:46:35 [employer]PLANE [employer] Rodrigo Sarah [facility]-52522 Level 3 Est. Patient 14:24:37 [employer]PLANE RE[employer] Yolande Lindsay MD [facility]-79214 Level 3 Est. Patient 17:41:58 [employer]ANE RE[employer] Yolande Lindsay MD [facility]-29783 Level 2 Est. Patient 22:01:41 [employer]PLANE [employer] Rodrigo Sarah [facility]-60034 Level 2 Est. Patient 22:01:11 [employer]PLANE [employer] Rodrigo Sarah [facility]-81233 Level 3 Est. Patient 10:12:29 [employer]PLANE RE[employer] Rodrigo Sarah [facility]-04832 Level 3 Est. Patient 11:05:44 CDT Alexis Ordaz MD [facility] CPT-99815 Level 3 Est. Patient 14:57:20 CDT Yolande Lindsay MD [facility] CPT-25941 Level 3 Est. Patient 14:40:57 CDT Yolande Lindsay MD [facility] CPT-05763 Level 3 Est. Patient 20:55:40 CDT Yolande Lindsay MD [facility] CPT-58709 Level 3 Est. Patient 12:42:38 [employer]PLANE [employer] Yolande Lindsay MD [facility] CPT-17311 Level 3 Est. Patient 11:54:49 [employer]PLANE RE[employer] Des Hines MD [facility] CPT-57704 Level 3 Est. Patient 17:06:38 CDT Dewayne PERAZA [facility] Procedures Code Procedure Name Date Entry Date Standard Description CPT-41323 Chest 2V Frontal and Lat - XRAY USE ONLY 10:48:51 CDT CPT-07677 LS spine comp w obliq 13:28:00 [employer]ANE [employer] CPT-J1040 Depo Medrol 80 mg (Methyl Prednisolone Acetate) 10:51: 28 [employer]ANE [employer] CPT-J1100 Decadron 8mg (Dexamethasone) 10:51:28 [employer]ANE [employer] CPT-36218 Abx/Therapy Injection 10:51:28 [employer]PLANE RE[employer] CPT-J1100 Decadron 8mg (Dexamethasone) 21:02:30 [employer]PLANE RE[employer] CPT-J1040 Depo Medrol 80 mg (Methyl Prednisolone Acetate) 21:02: 30 [employer]PLANE RE[employer] [id number] Event Monitor - MC Transmission 09:12:32 CDT 08/06 [id number] Event Monitor - MC review and interp 09:12:32 CDT [id number] Event Monitor - MC recording 09:12:32 CDT CPT-13502 EKG Trac and Interp 16:50:22 CDT CPT-J1030 Depo Medrol 40 mg (Methyl Prednisolone Acetate) 17:05: 54 CDT CPT-J1100 Decadron 4mg (Dexamethasone) 17:05:54 CDT CPT-15892 Abx/Therapy Injection 17:05:54 CDT CPT-J1100 Decadron 4mg (Dexamethasone) 16:55:28 CDT CPT-J1030 Depo Medrol 40 mg (Methyl Prednisolone Acetate) 16:55: 28 CDT CPT-64338 Ankle Complete - Min 3V 15:58:50 CDT CPT-10522 Knee 3V 15:58:50 CDT CPT-85029 Hip comp min 2V 15:58:50 CDT CPT-J2270 Morphine Sulfate 10 mg 14:25:44 [employer]ANE [employer] CPT-J2550 Phenergan 12.5 mg (Promethazine) 14:25:44 [employer]PLANE RE[employer] CPT-16860 Abx/Therapy Injection 14:25:44 AIRPLANE REFUEL[employer] CPT-J2550 Phenergan 12.5 mg (Promethazine) 14:08:03 AIRPLANE REFUEL[employer] CPT-J2270 Morphine Sulfate 10 mg 14:08:03 AIRPLANE REFU[employer] CPT-86081 Bladder Scan 15:00:38 CDT CPT-TCMM Transitional Care Mgmt-Moderate 09:52:22 CDT CPT-J1030 Depo Medrol 40 mg (Methyl Prednisolone Acetate) 10:55: 18 CDT CPT-J1100 Decadron 4mg (Dexamethasone) 10:55:18 CDT CPT-84140 Abx/Therapy Injection 10:55:18 CDT CPT-J1030 Depo Medrol 40 mg (Methyl Prednisolone Acetate) 10:22: 32 CDT CPT-J1100 Decadron 4mg (Dexamethasone) 10:22:32 CDT CPT-07917 Postop F/U Visit 14:37:13 CDT CPT-76610 Ankle Complete - Min 3V 17:11:58 CDT CPT-26805 Foot comp min 3V 17:11:58 CDT CPT-82763 Bladder Scan 09:56:58 CDT CPT-86284 Postop F/U Visit 09:56:58 CDT CPT-15966 Cystoscopy 09:02:42 CDT CPT-88330 Bladder Scan 09:02:42 CDT CPT-75534 Abd single AP View 16:00:35 CDT CPT-37964 Administration single or combination vaccine inc oral 10 :15:43 CDT CPT-52735 Influenza split virus > age 3 10:15:43 CDT CPT-52452 Nail Avulsion 09:24:57 CDT CPT-OV Office Visit 11:15:41 CDT CPT-93656 Abx/Therapy Injection 10:51:30 CDT CPT-J3301 Kenalog 40 mg (Triamcinolone Acetonide) 10:25:12 CDT CPT-J1100 Decadron 4mg (Dexamethasone) 10:25:12 CDT CPT-76556 Anoscopy diagnostic 10:36:12 CDT CPT-OV Office Visit 15:34:31 CDT CPT-48831 Abx/Therapy Injection 08:21:15 [employer]ANE RE[employer] CPT-J1885 Toradol 60 mg (Ketorolac) 10:46:35 [employer]PLANE RE[employer] CPT-OV Office Visit 19:51:16 [employer]PLANE RE[employer]EL[employer] CPT-20583 Spec Collection and Handling Fee 14:34:18 [employer]PLANE RE[employer] CPT-PV Prev. Care Visit 14:19:18 [employer]PLANE REFU[employer] CPT-51006 Postop F/U Visit 14:47:51 [employer]PLANE RE[employer] CPT-86158 Postop F/U Visit 15:15:14 [employer]PLANE RE[employer] CPT-56852 Postop F/U Visit 14:41:43 CDT CPT-13034 Postop F/U Visit 15:47:46 CDT CPT-OV Office Visit 15:27:23 CDT CPT-OV Office Visit 17:20:34 CDT CPT-28406 Abx/Therapy Injection 15:05:57 CDT CPT-J1100 Decadron 8mg (Dexamethasone) 14:44:57 CDT CPT-J1040 Depo Medrol 80 mg (Methyl Prednisolone Acetate) 14:44: 57 CDT CPT-JTINJ Joint Injection 10:17:37 CDT CPT-64945 Administration 2+ single or combination vaccines inc oral 13:01:46 [employer] CPT-19676 Administration single or combination vaccine inc oral 13 :01:[address] [employer] CPT-86505 Pneumovax 13:01:46 [employer] CPT-99660 Influenza split virus > age 3 13:01:46 [employer] CPT-69249 Administration single or combination vaccine inc oral 08 :56:49 CDT CPT-09760 Tdap 08:56:49 CDT
--- OUTSIDE RECORDS SUMMARY | 2017-03-21 21:15 | XMS REPORT | Clinical Summary ---
Author Author Admin, E Organization [facility] Address Unknown Phone Unavailable Allergies, Adverse Reactions, Alerts Allergy Name Reaction Description Start Date Severity Status Provider VALENTIN Critical Active Rodrigo Fracharlottel CREDIT CASHIER CHLORHEXIDINE GLUCONATE tongue and gums swollen Critical Active Hoa Otto RMA NORFLEX Rash Critical Active Silvestrellina Frazell CREDIT CASHIER TRAZODONE HCL sees things Critical Active Dewayne [...] Anal fissure CHEST PAIN, UNSPECIFIED 786.50 Resolved Yloande Lindsay MD PhD Unspecified chest pain HEADACHE [...] MD Lumbago Cough 786.2 Active Jillina Tyrel CREDIT CASHIER Cough 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 Jillina Frazellilian CREDIT CASHIER 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 Anemia 285.9 Active Gab Padron MD Anemia, unspecified Conjunctivitis 372.30 Active Jillnacho Sarah APRN Conjunctivitis, unspecified Sinusitis 473.9 Active Silvestrellina Frazell CREDIT CASHIER Unspecified sinusitis (chronic) Nonspecific syndrome suggestive of viral illness 079.99 Active Jillina Frazell CREDIT CASHIER Unspecified viral infection Laryngitis 464.00 Active Jillina Frazell CREDIT CASHIER Acute laryngitis without mention of obstruction Abdominal [...] Flank pain, left 789.09 Active Jillina Frazell CREDIT CASHIER Abdominal pain, other specified site; multiple sites Abdominal pain, generalized 789.07 Active Jillina Farshadzell CREDIT CASHIER Abdominal pain, generalized Back pain, thoracic region, left 724.1 Active Jillina Frazell CREDIT CASHIER Pain in thoracic spine Abdominal pain, left [...] MD Unspecified disorder of kidney and ureter FOOT PAIN, RIGHT ICD-729.5 Inactive Yolande Lindsay MD PhD ANKLE PAIN, RIGHT ICD-719.47 Inactive Yolande Lindsay MD PhD EDEMA, LIMB ICD-782.3 Inactive Yolande Lindsay MD PhD ABDOMINAL PAIN ICD-789.00 Inactive Yolande Lindsay MD PhD PLANTAR FASCIITIS ICD-728.71 Inactive Yolande Lindsay MD PhD UTI ICD-599.0 Inactive Yolande Lindsay MD PhD OTHER SCREENING MAMMOGRAM ICD-V76.12 Inactive Yolande Lindsay MD PhD KNEE PAIN ICD-719.46 Inactive Yolande Linsday MD PhD ALLERGIC REACTION, ACUTE ICD-995.3 Inactive [...] 1/2 tab daily for 2 days PREDNISONE 09970970038 No Longer Active Gab Padron MD Active ZOFRAN ODT 4 MG TBDP 1 po q6hr PRN Nausea ONDANSETRON 13422901955 Active Rodrigo Sarah CREDIT CASHIER Active IBUPROFEN 600 MG TAB 1 tablet by mouth every 6 hours for 7 days, then 1 tablet every 6 hours as needed. Take with food IBUPROFEN 72536162474 Active Rodrigo Sarah APRN Active BACTRIM DS 800-160 MG TAB 1 tab by mouth twice daily TRIMETHOPRIM-SULFAMETHOXAZOLE 27845202436 No Longer Active Gab Padron MD Active ADVAIR DISKUS 250-50 MCG/DOSE AEPB 1 puff BID FLUTICASONE- SALMETEROL 45848866184 Active Rodrigo Sarah APRN Active LEVOTHYROXINE SODIUM 75 MCG TABS Take 1 tab daily LEVOTHYROXINE SODIUM 49914536950 No Longer Active Mariana Cuadra RMA Active SYNTHROID 88 MCG ORAL TABS Take one by mouth daily LEVOTHYROXINE SODIUM 40399003551 Active Tisha Lambert APRN Active CHERATUSSIN AC 100-10 MG/5ML SYRP 1 tsp by mouth every 4 hours as needed for cough GUAIFENESIN-CODEINE 24246036773 No Longer Active Gab Padron MD Active POLYTRIM 21366-7.1 UNIT/ML-% SOLN 1 gtt to affected eye q3h x 7 days POLYMYXIN B-TRIMETHOPRIM 85169511837 No Longer Active Gab Padron MD Active FLUTICASONE PROPIONATE 50 MCG/ACT SUSP 1 to 2 sprays each nostril daily 04/21 FLUTICASONE PROPIONATE 96939260232 No Longer Active Gab Padron MD Active TRILEPTAL 600 MG TABS Take one 1 tablet in Am and 1 tablet at night OXCARBAZEPINE 86213959713 Active Gab Padron MD Active CEFDINIR 300 MG CAPS 1 po BID x 10 days CEFDINIR 50932208927 No Longer Active Rodrigo Sarah APRN Active CEFTIN 500 MG TAB 1 twice a day CEFUROXIME AXETIL 95714557013 No Longer Active Gab Padron MD Active AZITHROMYCIN 250 MG TABS 2 po qd x 1 day, then 1 po qd x 4 days AZITHROMYCIN 82786622155 No Longer Active Rodrigo Sarah APRN Active CLARITIN 10 MG TAB 1 tablet by mouth daily as needed for allergies LORATADINE 65437921320 Active Rodrigo Sarah APRN Active OXYCODONE HCL 5 MG ORAL CAPS 1 TAB PO Q HS OXYCODONE HCL 76861076185 No Longer Active Rodrigo Sarah APRN Active NIASPAN 500 MG ORAL CR-TABS 1 pill nightly x 1 week, then 2 pills nightly x 1 week, then 3 pills nightly x 1 week, then 4 pills nightly NIACIN (ANTIHYPERLIPIDEMIC) 10591680886 No Longer Active Rodrigo Sarah APRN Active NIACIN 500 MG TABS 1 pill by mouth nightly x 1 week, then 2 pills x 1 week, then 3 pills x 1 week, then 4 pills nightly - take after evening meal, with applesauce or an apple NIACIN 20291193891 No Longer Active Yolande Lindsay MD PhD Active FISH OIL 1000 MG CAPS 3 pills daily OMEGA-3 FATTY ACIDS 24954111496 Active Yolande Lindsay MD PhD Active TRIAMCINOLONE ACETONIDE 0.1 % CREA apply bid sparingly to rash TRIAMCINOLONE ACETONIDE 69554723498 Active Yolande Lindsay MD PhD Active FUROSEMIDE 20 MG TAB 1 tablet by mouth daily FUROSEMIDE 98103525655 Active Tisha Lambert APRN Active LISINOPRIL 20 MG ORAL TABS 1 tab by mouth daily LISINOPRIL 77878514436 Active Tisha Lambert APRN Active FUROSEMIDE 20 MG TABS 1 pill by mouth daily, for edema FUROSEMIDE 65077047924 No Longer Active Yolande Lindsay MD PhD Active ATORVASTATIN CALCIUM 10 MG TABS 1 pill by mouth daily, for cholesterol 09/06 ATORVASTATIN CALCIUM 15656744249 Active Tisha Lambert APRN Active CALCIUM 600+D PLUS MINERALS 600-400 MG-UNIT ORAL CHEW 1 tab by mouth daily CALCIUM CARBONATE-VIT D-MIN 62717005227 No Longer Active Yolande Lindsay MD PhD Active CYCLOBENZAPRINE HCL 10 MG TABS 1 tablet by mouth three times daily as needed for muscle spasm/pain CYCLOBENZAPRINE HCL 97309521953 Active Yolande Lindsay MD PhD Active ONDANSETRON 4 MG TBDP 1 q4h PRN nausea ONDANSETRON 80317937897 Active Yolande Lindsay MD PhD Active ADULT ASPIRIN EC LOW STRENGTH 81 MG TBEC Take 1 tablet by mouth daily 2014 ASPIRIN 81861382288 No Longer Active Yolande Lindsay MD PhD Active ZOFRAN ODT 4 MG TBDP 1 pill dissolved by mouth every 4 hours if needed for nausea ONDANSETRON 39196909379 No Longer Active Yolande Lindsay MD PhD Active CEFTIN 500 MG TAB 1 twice a day CEFUROXIME AXETIL 39297490946 No Longer Active Yolande Lindsay MD PhD Active ALBUTEROL SULFATE 0.083 % NEBU SOLN one vial per nebulizer every 4-6 hours as needed ALBUTEROL SULFATE 69322910331 No Longer Active Alexis Ordaz MD Active DOXYCYCLINE HYCLATE 100 MG CAP 1 cap by mouth twice daily DOXYCYCLINE HYCLATE 58312580039 No Longer Active Yolande Lindsay MD PhD Active CYCLOBENZAPRINE HCL 10 MG TABS 1/2 - 1 tab by mouth three times daily if needed for spasms/pain CYCLOBENZAPRINE HCL 77365892117 No Longer Active Yolande Lindsay MD PhD Active AZITHROMYCIN 250 MG TABS 2 pills on day 1, then 1 pill daily x 4 days AZITHROMYCIN 01147490307 No Longer Active Yolande Lindsay MD PhD Active XOPENEX 1.25 MG/3ML NEBU 1 neb every 4 hours if needed for cough/congestion LEVALBUTEROL HCL 46149680853 No Longer Active Yolande Lindsay MD PhD Active DOXYCYCLINE HYCLATE 100 MG TAB 1 tab twice a day for 14 days 2013 DOXYCYCLINE HYCLATE 09281193806 No Longer Active Yolande Lindsay MD PhD Active PREVACID 30 MG CPDR Take 1 tablet by mouth daily-PRN LANSOPRAZOLE 11818379518 No Longer Active Yolande Lindsay MD PhD Active PA VITAMIN D-3 2000 UNIT CAPS 1 CAP PO DAILY CHOLECALCIFEROL 50396058771 No Longer Active Yolande Lindsay MD PhD Active CEFDINIR 300 MG CAPS by mouth twice a day CEFDINIR 68013094506 No Longer Active Gab Padron MD Active TOPAMAX 50 MG TABS 1 PO twice daily TOPIRAMATE 61919700649 Active oYlande Lindsay MD PhD Active AZITHROMYCIN 250 MG TABS 2 po qd x 1 day, then 1 po qd x 4 days AZITHROMYCIN 21501395818 No Longer Active Yolande Lindsay MD PhD Active DICLOFENAC SODIUM 75 MG TBEC 1 tablet by q 12 hours PRN headaches DICLOFENAC SODIUM 79796130529 No Longer Active Yolande Lindsay MD PhD Active FLONASE 50 MCG/ACT SUSP 1 spray each nostril am and hs FLUTICASONE PROPIONATE 75429472763 No Longer Active Todd Callaway MD Active ANUSOL-HC 25 MG SUPPOSITORY 1 rectally twice a day as needed for hemorrhoids HYDROCORTISONE JAYDEN (RECTAL) 17794871237 No Longer Active Yolande Lindsay MD PhD Active ANUSOL-HC 25 MG SUPPOSITORY 1 suppository rectally each evening as needed for anal fissure HYDROCORTISONE JAYDEN (RECTAL) 74845971029 No Longer Active LONNIE Iglesias Active VALIUM 5 MG TAB 1 po 30 minutes prior to your MRI DIAZEPAM 65761195705 No Longer Active LONNIE Iglesias Active METHOCARBAMOL 750 MG TABS 1 PO QID PRN METHOCARBAMOL 23962491673 No Longer Active Daphne Wetzel APRN Active NITROSTAT 0.4 MG SUBL as directed NITROGLYCERIN 25682792120 No Longer Active Silvestrellina Frahossein ZAPATAN Active ROBAXIN-750 750 MG TABS 2 four times a day for 3 days as needed for muscle spasm, then 1 four times a day as needed METHOCARBAMOL 74048442603 No Longer Active Jillina Frazellilian CREDIT CASHIER Active HYDROCODONE-ACETAMINOPHEN 5-325 MG TABS 1 q 4-6 hrs prn HYDROCODONE-ACETAMINOPHEN 86191918904 No Longer Active Jillina Frazellilian CREDIT CASHIER Active VERAPAMIL HCL CR 180 MG CR-TABS TAKE 1 TAB DAILY VERAPAMIL HCL 54728765074 No Longer Active Yolande Lindsay MD PhD Active BACTRIM DS 800-160 MG TAB 1 tab by mouth twice daily TRIMETHOPRIM-SULFAMETHOXAZOLE 01638686701 No Longer Active Yolande Lindsay MD PhD Active NEXIUM 40 MG PACK 1 by mouth daily ESOMEPRAZOLE MAGNESIUM 73301370765 No Longer Active Des Hines MD Active EPIPEN 2-CHARLETTE 0.3 MG/0.3ML OMARI as need for allergic reaction EPINEPHRINE 57004971530 Active Yolande Lindsay MD PhD Active NEXIUM 40 MG CPDR 1 PO Q D DAY ESOMEPRAZOLE MAGNESIUM 51437259437 No Longer Active Sadia Perry RN Active NEXIUM 40 MG PACK 1 by mouth daily NEXIUM 40 MG PACK ESOMEPRAZOLE MAGNESIUM Inactive VERAPAMIL HCL CR 180 MG CR-TABS TAKE 1 TAB DAILY VERAPAMIL HCL CR 180 MG CR-TABS VERAPAMIL HCL Inactive HYDROCODONE-ACETAMINOPHEN 5-325 MG TABS 1 q 4-6 hrs prn HYDROCODONE-ACETAMINOPHEN 5-325 MG TABS 892388 HYDROCODONE-ACETAMINOPHEN Inactive ROBAXIN-750 750 MG TABS 2 four times a day for 3 days as needed for muscle spasm, then 1 four times a day as needed ROBAXIN-750 750 MG TABS 19780706 METHOCARBAMOL Inactive NITROSTAT 0.4 MG SUBL as directed NITROSTAT 0.4 MG SUBL 535777 NITROGLYCERIN Inactive METHOCARBAMOL 750 MG TABS 1 PO QID PRN METHOCARBAMOL 750 MG TABS 19780706 METHOCARBAMOL Inactive VALIUM 5 MG TAB 1 po 30 minutes prior to your MRI VALIUM 5 MG TAB 785028 DIAZEPAM Inactive ANUSOL-HC 25 MG SUPPOSITORY 1 suppository rectally each evening as needed for anal fissure ANUSOL-HC 25 MG SUPPOSITORY 5474510 HYDROCORTISONE JAYDEN (RECTAL) Inactive ANUSOL-HC 25 MG SUPPOSITORY 1 rectally twice a day as needed for hemorrhoids ANUSOL-HC 25 MG SUPPOSITORY 8842117 HYDROCORTISONE JAYDEN (RECTAL) Inactive FLONASE 50 MCG/ACT SUSP 1 spray each nostril am and hs FLONASE 50 MCG/ACT SUSP FLUTICASONE PROPIONATE Inactive DICLOFENAC SODIUM 75 MG TBEC 1 tablet by q 12 hours PRN headaches DICLOFENAC SODIUM 75 MG TBEC 560220 DICLOFENAC SODIUM Inactive PA VITAMIN D-3 2000 UNIT CAPS 1 CAP PO DAILY PA VITAMIN D-3 2000 UNIT CAPS CHOLECALCIFEROL Inactive PREVACID 30 MG CPDR Take 1 tablet by mouth daily-PRN PREVACID 30 MG CPDR 352558 LANSOPRAZOLE Inactive DOXYCYCLINE HYCLATE 100 MG TAB 1 tab twice a day for 14 days 2013 DOXYCYCLINE HYCLATE 100 MG TAB 3275607 DOXYCYCLINE HYCLATE Inactive XOPENEX 1.25 MG/3ML NEBU 1 neb every 4 hours if needed for cough/congestion XOPENEX 1.25 MG/3ML NEBU 320853 LEVALBUTEROL HCL Inactive CYCLOBENZAPRINE HCL 10 MG TABS 1/2 - 1 tab by mouth three times daily if needed for spasms/pain CYCLOBENZAPRINE HCL 10 MG TABS 628753 CYCLOBENZAPRINE HCL Inactive ALBUTEROL SULFATE 0.083 % NEBU SOLN one vial per nebulizer every 4-6 hours as needed ALBUTEROL SULFATE 0.083 % NEBU SOLN 358886 ALBUTEROL SULFATE Inactive CEFTIN 500 MG TAB 1 twice a day CEFTIN 500 MG TAB 111550 CEFUROXIME AXETIL Inactive ZOFRAN ODT 4 MG TBDP 1 pill dissolved by mouth every 4 hours if needed for nausea ZOFRAN ODT 4 MG TBDP 202477 ONDANSETRON Inactive ADULT ASPIRIN EC LOW STRENGTH 81 MG TBEC Take 1 tablet by mouth daily 2014 ADULT ASPIRIN EC LOW STRENGTH 81 MG TBEC 222652 ASPIRIN Inactive CALCIUM 600+D PLUS MINERALS 600-400 [...] or an apple NIACIN 500 MG TABS 417760 NIACIN Inactive NIASPAN 500 MG ORAL CR-TABS 1 pill nightly x 1 week, then 2 pills nightly x 1 week, then 3 pills nightly x 1 week, then 4 pills nightly NIASPAN 500 MG ORAL CR-TABS NIACIN (ANTIHYPERLIPIDEMIC) Inactive OXYCODONE HCL 5 MG ORAL CAPS 1 TAB PO Q HS OXYCODONE HCL 5 MG ORAL CAPS 3201524 OXYCODONE HCL Inactive FLUTICASONE PROPIONATE 50 MCG/ACT SUSP 1 to 2 sprays each nostril daily 04/21 FLUTICASONE PROPIONATE 50 MCG/ACT SUSP 9070635 FLUTICASONE PROPIONATE Inactive POLYTRIM 98634-0.1 UNIT/ML-% SOLN 1 gtt to affected eye q3h x 7 days POLYTRIM 20672-4.1 UNIT/ML-% SOLN 723229 POLYMYXIN B- TRIMETHOPRIM Inactive CHERATUSSIN AC 100-10 MG/5ML SYRP 1 tsp by mouth every 4 hours as needed for cough CHERATUSSIN AC 100-10 MG/5ML SYRP 861760 GUAIFENESIN-CODEINE Inactive LEVOTHYROXINE SODIUM 75 MCG TABS Take 1 tab daily LEVOTHYROXINE SODIUM 75 MCG TABS 064665 LEVOTHYROXINE SODIUM Inactive BACTRIM DS 800-160 MG TAB 1 tab by mouth twice daily BACTRIM DS 800-160 MG TAB 19820606 TRIMETHOPRIM-SULFAMETHOXAZOLE Inactive AZITHROMYCIN 250 MG TABS 2 po qd x 1 day, then 1 po qd x 4 days AZITHROMYCIN 250 MG TABS 4064685 AZITHROMYCIN Inactive CEFDINIR 300 MG CAPS by mouth twice a day CEFDINIR 300 MG CAPS 20020708 CEFDINIR Inactive AZITHROMYCIN 250 MG TABS 2 pills on day 1, then 1 pill daily x 4 days AZITHROMYCIN 250 MG TABS 1453659 AZITHROMYCIN Inactive DOXYCYCLINE HYCLATE 100 MG CAP 1 cap by mouth twice daily DOXYCYCLINE HYCLATE 100 MG CAP 5808830 DOXYCYCLINE HYCLATE Inactive FUROSEMIDE 20 MG TABS 1 pill by mouth daily, for edema FUROSEMIDE 20 MG TABS 116236 FUROSEMIDE Inactive AZITHROMYCIN 250 MG TABS 2 po qd x 1 day, then 1 po qd x 4 days AZITHROMYCIN 250 MG TABS 5965778 AZITHROMYCIN Inactive CEFTIN 500 MG TAB 1 twice a day CEFTIN 500 MG TAB 256846 CEFUROXIME AXETIL Inactive CEFDINIR 300 MG CAPS [...] for 2 days PREDNISONE 20 MG TAB 486550 PREDNISONE Inactive Immunizations Vaccine Administration Date Value Standard Description Seasonal influenza vaccine, injectable, containing preservative, for > 3 years old (Afluria, FluLaval, Fluzone, Fluvirin, Fluarix, Agriflu(>=18 yo)) Fluzone (>3 yrs.) [MWC523] Influenza, seasonal, injectable influenza immunization (Flu Vax) has been administered Influenza - Unspecified Formulation [CVX88] influenza virus vaccine, unspecified formulation pneumococcal immunization administered Pneumovax 23 [CVX33] pneumococcal polysaccharide vaccine, 23 valent Seasonal influenza vaccine, injectable, containing preservative, for > 3 years old (Afluria, FluLaval, Fluzone, Fluvirin, Fluarix, Agriflu(>=18 yo)) Fluzone (>3 yrs.) [DXG586] Influenza, seasonal, injectable dT (Diphtheria and Tetanus) booster given given Td(adult) unspecified formulation Boostrix (Tetanus toxoid, reduced diphtheria toxoid and acellular pertussis vaccine, adsorbed), booster Boostrix [YWV733] tetanus toxoid, reduced diphtheria toxoid, and acellular [...] Panel - Chemistry sodium, serum 142 mmol/L 550-238 1144/06/30 potassium, serum 4.4 mmol/L 3.5-5.2 chloride, serum [...] Rate - Chemistry sodium, serum 139 mmol/L 338-482 3487/03/24 carbon dioxide, venous blood 22.4 mmol/L 21.0-32.0 [...] ... - Chemistry sodium, serum 143 mmol/L 362-623 5028/05/02 carbon dioxide, venous blood 25.6 mmol/L 21.0-32.0 [...] PANEL - Chemistry cholesterol, serum 166 mg/dL 433-729 4940/12/06 triglyceride, serum, fasting 86 mg/dL 30-200 HDL [...] dipstick Negative Negative sodium, serum 142 mmol/L 704-726 9402/07/18 carbon dioxide, venous blood 27.8 mmol/L 21.0-32.0 [...] negative Encounters Code Encounter Date Provider Facility CPT-35752 Level 4 Est. Patient 19:55:18 PULLMAN CLERK Jared Og MD [facility] CPT-22991 Level 3 Est. Patient 20:13:34 PULLMAN CLERK Jared Og MD [facility] CPT-35543 Level 4 Est. Patient 16:31:27 CDT Gab Padron MD [facility] CPT-26947 Level 2 Est. Patient 12:23:38 CDT Jared Og MD [facility] CPT-46833 Level 3 Est. Patient 11:01:51 CDT Gab Padron MD [facility] CPT-51551 Level 3 Est. Patient 15:27:02 CDT Jared Og MD [facility] CPT-47801 Level 4 Est. Patient 09:25:27 CDT Gab Padron MD [facility] CPT-82035 Level 3 Est. [facility] 10[facility]29[facility] Level 4 Est. Patient 17:51:05 CDT Gab Padron MD [facility] CPT-14720 Level 3 Est. Patient 14:18:08 CDT Gab Padron MD [facility] CPT-31612 Level 4 Est. Patient 10:18:54 CDT Gab Padron MD [facility] CPT-75642 Level 3 Est. Patient 11:30:07 CDT Rodrigo Sarah [facility] CPT-51431 Level 4 Est. Patient 21:02:30 PULLMAN CLERK Gab Padron MD [facility] CPT-92780 Level 3 Est. Patient 11:02:19 PULLMAN CLERK Gab Padron MD [facility] CPT-17784 Level 4 Est. Patient 22:24:31 PULLMAN CLERK Gab Padron MD [facility] CPT-15703 Level 3 Est. Patient 18:33:46 PULLMAN CLERK Gab Padron MD [facility]-16966 Level 3 Est. Patient 16:19:11 CDT Yolande Lindsay MD [facility]-03255 Level 3 Est. Patient 18:59:14 CDT Yolande Lindsay MD [facility]-26256 Level 4 Est. Patient 21:29:26 CDT Yolande Lindsay MD [facility]-34713 Level 3 Est. Patient 07:37:45 CDT Yolande Lindsay MD [facility]-06038 Level 3 Est. Patient 17:03:46 CDT Yolande Lindsay MD [facility]-45581 Level 4 Est. Patient 20:02:13 PULLMAN CLERK Yolande Lindsay MD [facility]-04986 Level 3 Est. Patient 16:02:07 PULLMAN CLERK Alexis Ordaz MD [facility] CPT-02315 Level 3 Est. Patient 12:41:24 PULLMAN CLERK Yolande Lindsay MD [facility]-34372 Level 3 Est. Patient 15:41:20 PULLMAN CLERK Yolande Lindsay MD [facility]-26815 Level 3 Est. Patient 13:20:02 PULLMAN CLERK Yolande Lindsay MD [facility]-97517 Level 3 Est. Patient 15:00:38 CDT Jared Og MD [facility]-25842 Level 3 Est. Patient 10:22:32 CDT Yolande Lindsay MD [facility]-07147 Level 3 Est. Patient 17:12:58 CDT Yolande Lindsay MD [facility]-49384 Level 4 Est. Patient 13:30:58 CDT Yolande Lindsay MD [facility]-38599 Level 4 New Patient 09:02:42 CDT Jared Og MD [facility]-67164 Level 3 Est. Patient 08:19:07 CDT Yolande Lindsay MD [facility]-32478 Level 3 Est. Patient 12:00:13 PULLMAN CLERK Gab Padron MD [facility]-77062 Level 3 Est. Patient 16:15:23 PULLMAN CLERK Yolande Lindsay MD [facility]-74686 Level 2 Est. Patient 19:47:15 CDT Yolaned Lindsay MD [facility]-66761 Level 3 Est. Patient 21:38:31 CDT Yolande Lindsay MD [facility]-14892 Level 3 Est. Patient 10:25:12 CDT Adiel PERAZA [facility] CPT-09385 Level 4 Est. Patient 10:51:58 CDT Yolande Lindsay MD [facility]-07512 Level 3 Est. Patient 14:04:55 PULLMAN CLERK Rodrigo Sarah [facility]-51238 Level 3 Est. Patient 10:46:35 PULLMAN CLERK Rodrigo Sarah [facility]-93172 Level 3 Est. Patient 14:24:37 PULLMAN CLERK Yolande Lindsay MD [facility]-74624 Level 3 Est. Patient 17:41:58 PULLMAN CLERK Yolande Lindsay MD [facility]-79807 Level 2 Est. Patient 22:01:41 PULLMAN CLERK Rodrigo Sarah [facility]-99786 Level 2 Est. Patient 22:01:11 PULLMAN CLERK Rodrigo Sarah [facility]-82692 Level 3 Est. Patient 10:12:29 PULLMAN CLERK Rodrigo Sarah APRN [facility] CPT-13495 Level 3 Est. Patient 11:05:44 CDT Alexis Ordaz MD [facility] CPT-02270 Level 3 Est. Patient 14:57:20 CDT Yolande Lindsay MD [facility] CPT-96263 Level 3 Est. Patient 14:40:57 CDT Yolande Lindsay MD [facility] CPT-64246 Level 3 Est. Patient 20:55:40 CDT Yolande Lindsay MD [facility] CPT-64350 Level 3 Est. Patient 12:42:38 PULLMAN CLERK Yolande Lindsay MD [facility] CPT-35963 Level 3 Est. Patient 11:54:49 PULLMAN CLERK Des Hines MD [facility] CPT-03534 Level 3 Est. Patient 17:06:38 CDT Dewayne PERAZA [facility] Procedures Code Procedure Name Date Entry Date Standard Description CPT-46637 Venipuncture Draw Fee 08:37:59 PULLMAN CLERK CPT-68311 Liver Profile - LAB USE ONLY 08:37:59 PULLMAN CLERK CPT-03247 Lipid - LAB USE ONLY 08:37:58 PULLMAN CLERK CPT-67665 First Vx - Ix admin via ID IM or jet injects without counseling by physician 11:52:31 CDT CPT-71123 Fluzone Preservative Free Intramuscular Suspension 11:52 :31 CDT CPT-67037 Foot, left, comp min 3V - XRAY USE ONLY 09:24:54 CDT CPT-61592 Abd single AP View - XRAY USE ONLY 11:16:17 CDT CPT-23122 T spine AP/ Lat - XRAY USE ONLY 09:34:21 CDT CPT-33336 Chest 2V Frontal and Lat - XRAY USE ONLY 10:48:51 CDT CPT-61358 LS spine comp w obliq 13:28:00 PULLMAN CLERK CPT-J1040 Depo Medrol 80 mg (Methyl Prednisolone Acetate) 10:51: 28 PULLMAN CLERK CPT-J1100 Decadron 8mg (Dexamethasone) 10:51:28 PULLMAN CLERK CPT-25967 Abx/Therapy Injection 10:51:28 PULLMAN CLERK CPT-J1100 Decadron 8mg (Dexamethasone) 21:02:30 PULLMAN CLERK CPT-J1040 Depo Medrol 80 mg (Methyl Prednisolone Acetate) 21:02: 30 PULLMAN CLERK [id number] Event Monitor - MC Transmission 09:12:32 CDT 08/06 [id number] Event Monitor - MC review and interp 09:12:32 CDT [id number] Event Monitor - MC recording 09:12:32 CDT CPT-48838 EKG Trac and Interp 16:50:22 CDT CPT-J1030 Depo Medrol 40 mg (Methyl Prednisolone Acetate) 17:05: 54 CDT CPT-J1100 Decadron 4mg (Dexamethasone) 17:05:54 CDT CPT-38771 Abx/Therapy Injection 17:05:54 CDT CPT-J1100 Decadron 4mg (Dexamethasone) 16:55:28 CDT CPT-J1030 Depo Medrol 40 mg (Methyl Prednisolone Acetate) 16:55: 28 CDT CPT-77685 Ankle Complete - Min 3V 15:58:50 CDT CPT-03904 Knee 3V 15:58:50 CDT CPT-46038 Hip comp min 2V 15:58:50 CDT CPT-J2270 Morphine Sulfate 10 mg 14:25:44 PULLMAN CLERK CPT-J2550 Phenergan 12.5 mg (Promethazine) 14:25:44 PULLMAN CLERK CPT-70470 Abx/Therapy Injection 14:25:44 PULLMAN CLERK CPT-J2550 Phenergan 12.5 mg (Promethazine) 14:08:03 PULLMAN CLERK CPT-J2270 Morphine Sulfate 10 mg 14:08:03 PULLMAN CLERK CPT-56350 Bladder Scan 15:00:38 CDT CPT-TCMM Transitional Care Mgmt-Moderate 09:52:22 CDT CPT-J1030 Depo Medrol 40 mg (Methyl Prednisolone Acetate) 10:55: 18 CDT CPT-J1100 Decadron 4mg (Dexamethasone) 10:55:18 CDT CPT-68013 Abx/Therapy Injection 10:55:18 CDT CPT-J1030 Depo Medrol 40 mg (Methyl Prednisolone Acetate) 10:22: 32 CDT CPT-J1100 Decadron 4mg (Dexamethasone) 10:22:32 CDT CPT-85115 Postop F/U Visit 14:37:13 CDT CPT-60712 Ankle Complete - Min 3V 17:11:58 CDT CPT-84440 Foot comp min 3V 17:11:58 CDT CPT-61323 Bladder Scan 09:56:58 CDT CPT-23977 Postop F/U Visit 09:56:58 CDT CPT-17722 Cystoscopy 09:02:42 CDT CPT-57791 Bladder Scan 09:02:42 CDT CPT-46012 Abd single AP View 16:00:35 CDT CPT-82765 Administration single or combination vaccine inc oral 10 :15:43 CDT CPT-28892 Influenza split virus > age 3 10:15:43 CDT CPT-39189 Nail Avulsion 09:24:57 CDT CPT-OV Office Visit 11:15:41 CDT CPT-66640 Abx/Therapy Injection 10:51:30 CDT CPT-J3301 Kenalog 40 mg (Triamcinolone Acetonide) 10:25:12 CDT CPT-J1100 Decadron 4mg (Dexamethasone) 10:25:12 CDT CPT-38975 Anoscopy diagnostic 10:36:12 CDT CPT-OV Office Visit 15:34:31 CDT CPT-09425 Abx/Therapy Injection 08:21:15 PULLMAN CLERK CPT-J1885 Toradol 60 mg (Ketorolac) 10:46:35 PULLMAN CLERK CPT-OV Office Visit 19:51:16 PULLMAN CLERK CPT-62024 Spec Collection and Handling Fee 14:34:18 PULLMAN CLERK CPT-PV Prev. Care Visit 14:19:18 PULLMAN CLERK CPT-06688 Postop F/U Visit 14:47:51 PULLMAN CLERK CPT-45687 Postop F/U Visit 15:15:14 PULLMAN CLERK CPT-76089 Postop F/U Visit 14:41:43 CDT CPT-33131 Postop F/U Visit 15:47:46 CDT CPT-OV Office Visit 15:27:23 CDT CPT-OV Office Visit 17:20:34 CDT CPT-05754 Abx/Therapy Injection 15:05:57 CDT CPT-J1100 Decadron 8mg (Dexamethasone) 14:44:57 CDT CPT-J1040 Depo Medrol 80 mg (Methyl Prednisolone Acetate) 14:44: 57 CDT CPT-JTINJ Joint Injection 10:17:37 CDT CPT-14492 Administration 2+ single or combination vaccines inc oral 13:01:46 PULLMAN CLERK CPT-56023 Administration single or combination vaccine inc oral 13 :01:46 PULLMAN CLERK CPT-88870 Pneumovax 13:01:46 PULLMAN CLERK CPT-69115 Influenza split virus > age 3 13:01:46 PULLMAN CLERK CPT-70459 Administration single or combination vaccine inc oral 08 :56:49 CDT CPT-98586 Tdap 08:56:49 CDT
--- OUTSIDE RECORDS SUMMARY | 2017-03-21 21:15 | XMS REPORT ---
Author Author [employer] [facility] Medical Staff Organization [facility] Address [address] [id number] Phone [phone] Care Team Providers Care Senior Laboratory Technician Name Role Phone EVELYN SPEARS MD PP [phone] Summary purpose TRANSITION OF CARE AUTO GENERATION [...] Code Type Description Date Performed Performing Physician [id number] CPT-4 PT EVALUATION 02-10-2015 EULOGIO ERICKSON Functional [...]
--- OUTSIDE RECORDS SUMMARY | 2017-03-21 21:16 | XMS REPORT | Clinical Summary ---
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 Jillina Frazellilian CARD LACER JACQUARD 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 Anemia 285.9 Active Gab Padron MD Anemia, unspecified Conjunctivitis 372.30 Active Jillnacho Sarah APRN Conjunctivitis, unspecified Sinusitis 473.9 Active Silvestrellina Frazell CARD LACER JACQUARD Unspecified sinusitis (chronic) Nonspecific syndrome suggestive of viral illness 079.99 Active Jillina Fracharlottel CARD LACER JACQUARD Unspecified viral infection Laryngitis 464.00 Active Jillina Frazell CARD LACER JACQUARD Acute laryngitis without mention of obstruction Abdominal [...] Flank pain, left 789.09 Active Jillina Frazell CARD LACER JACQUARD Abdominal pain, other specified site; multiple sites Abdominal pain, generalized 789.07 Active Silvestrellina Farshadzell CARD LACER JACQUARD Abdominal pain, generalized Back pain, thoracic region, left 724.1 Active Jillina Frazell CARD LACER JACQUARD Pain in thoracic spine Abdominal pain, left [...] MEDICATIONS ICD-V58.69 Inactive Yolande Lindsay MD PhD FISSURE, ANAL ICD-565.0 Inactive Yolande Lindsay MD PhD ABDOMINAL PAIN, [...] bite ICD-989.5 Inactive Yolande Lindsay MD PhD ANGIOEDEMA ICD-995.1 Inactive Yolande Lindsay MD PhD RECTAL BLEEDING ICD-569.3 Inactive Yolande Lindsay MD PhD URI ICD-465.9 [...] TBDP 1 po q6hr PRN Nausea ONDANSETRON 98786560335 Active Jillina Fracharlottel CARD LACER JACQUARD Active IBUPROFEN 600 MG TAB 1 tablet by mouth every 6 hours for 7 days, then 1 tablet every 6 hours as needed. Take with food IBUPROFEN 10427615613 Active Jillina Frazell CARD LACER JACQUARD Active BACTRIM DS 800-160 MG TAB 1 tab by mouth twice daily TRIMETHOPRIM-SULFAMETHOXAZOLE 54624190324 No Longer Active Gab Padron MD Active ADVAIR DISKUS 250-50 MCG/DOSE AEPB 1 puff BID FLUTICASONE- SALMETEROL 19482222973 Active Jillina Frazell CARD LACER JACQUARD Active LEVOTHYROXINE SODIUM 75 MCG TABS Take 1 tab daily LEVOTHYROXINE SODIUM 18777625636 No Longer Active Mariana FLEMING Active SYNTHROID 88 MCG ORAL TABS Take one by mouth daily LEVOTHYROXINE SODIUM 88690157024 Active Mariana FLEMING Active CHERATUSSIN AC 100-10 MG/5ML SYRP 1 tsp by mouth every 4 hours as needed for cough GUAIFENESIN-CODEINE 99659206489 No Longer Active Gab Padron MD Active POLYTRIM 04806-4.1 UNIT/ML-% SOLN 1 gtt to affected eye q3h x 7 days POLYMYXIN B-TRIMETHOPRIM 86668479008 No Longer Active Gab Padron MD Active FLUTICASONE PROPIONATE 50 MCG/ACT SUSP 1 to 2 sprays each nostril daily 04/21 FLUTICASONE PROPIONATE 60877528923 No Longer Active Gab Padron MD Active TRILEPTAL 600 MG TABS Take one 1 tablet in Am and 1 tablet at night OXCARBAZEPINE 23961220691 Active Gab Padron MD Active CEFDINIR 300 MG CAPS 1 po BID x 10 days CEFDINIR 73770018198 No Longer Active Rodrigo Sarah APRN Active CEFTIN 500 MG TAB 1 twice a day CEFUROXIME AXETIL 00912044178 No Longer Active Gab Padron MD Active AZITHROMYCIN 250 MG TABS 2 po qd x 1 day, then 1 po qd x 4 days AZITHROMYCIN 18568654955 No Longer Active Rodrigo Sarah APRN Active CLARITIN 10 MG TAB 1 tablet by mouth daily as needed for allergies LORATADINE 54814183734 Active Silvestrellnacho Saarh APRN Active OXYCODONE HCL 5 MG ORAL CAPS 1 TAB PO Q HS OXYCODONE HCL 01913230602 No Longer Active Rodrigo Sarah APRN Active NIASPAN 500 MG ORAL CR-TABS 1 pill nightly x 1 week, then 2 pills nightly x 1 week, then 3 pills nightly x 1 week, then 4 pills nightly NIACIN (ANTIHYPERLIPIDEMIC) 43931732646 No Longer Active Rodrigo Sarah APRN Active NIACIN 500 MG TABS 1 pill by mouth nightly x 1 week, then 2 pills x 1 week, then 3 pills x 1 week, then 4 pills nightly - take after evening meal, with applesauce or an apple NIACIN 36054179089 No Longer Active Yolande Lindsay MD PhD Active FISH OIL 1000 MG CAPS 3 pills daily OMEGA-3 FATTY ACIDS 45978118267 Active Yolande Lindsay MD PhD Active TRIAMCINOLONE ACETONIDE 0.1 % CREA apply bid sparingly to rash TRIAMCINOLONE ACETONIDE 78871488151 Active Yolande Lindsay MD PhD Active FUROSEMIDE 20 MG TAB 1 tablet by mouth daily FUROSEMIDE 88857920110 Active Tisha Lambert CARD LACER JACQUARD Active LISINOPRIL 20 MG ORAL TABS 1 tab by mouth daily LISINOPRIL 83802147516 Active Gab Padron MD Active FUROSEMIDE 20 MG TABS 1 pill by mouth daily, for edema FUROSEMIDE 12857410621 No Longer Active Yolande Lindsay MD PhD Active ATORVASTATIN CALCIUM 10 MG TABS 1 pill by mouth daily, for cholesterol 09/06 ATORVASTATIN CALCIUM 76579532597 Active Gab Padron MD Active CALCIUM 600+D PLUS MINERALS 600-400 MG-UNIT ORAL CHEW 1 tab by mouth daily CALCIUM CARBONATE-VIT D-MIN 03232182087 No Longer Active Yolande Lindsay MD PhD Active CYCLOBENZAPRINE HCL 10 MG TABS 1 tablet by mouth three times daily as needed for muscle spasm/pain CYCLOBENZAPRINE HCL 60254672900 Active Yolande Lindsay MD PhD Active ONDANSETRON 4 MG TBDP 1 q4h PRN nausea ONDANSETRON 18879150074 Active Yolande Lindsay MD PhD Active ADULT ASPIRIN EC LOW STRENGTH 81 MG TBEC Take 1 tablet by mouth daily 2014 ASPIRIN 77031008618 No Longer Active Yolande Lindsay MD PhD Active ZOFRAN ODT 4 MG TBDP 1 pill dissolved by mouth every 4 hours if needed for nausea ONDANSETRON 37395768781 No Longer Active Yolande Lindsay MD PhD Active CEFTIN 500 MG TAB 1 twice a day CEFUROXIME AXETIL 42992613494 No Longer Active Yolande Lindsay MD PhD Active ALBUTEROL SULFATE 0.083 % NEBU SOLN one vial per nebulizer every 4-6 hours as needed ALBUTEROL SULFATE 22142431390 No Longer Active Alexis Ordaz MD Active DOXYCYCLINE HYCLATE 100 MG CAP 1 cap by mouth twice daily DOXYCYCLINE HYCLATE 56312161362 No Longer Active Yolande Lindsay MD PhD Active CYCLOBENZAPRINE HCL 10 MG TABS 1/2 - 1 tab by mouth three times daily if needed for spasms/pain CYCLOBENZAPRINE HCL 08272941327 No Longer Active Yolande Lindsay MD PhD Active AZITHROMYCIN 250 MG TABS 2 pills on day 1, then 1 pill daily x 4 days AZITHROMYCIN 66744076236 No Longer Active Yolande Lindsay MD PhD Active XOPENEX 1.25 MG/3ML NEBU 1 neb every 4 hours if needed for cough/congestion LEVALBUTEROL HCL 76409987048 No Longer Active Yolande Lindsay MD PhD Active DOXYCYCLINE HYCLATE 100 MG TAB 1 tab twice a day for 14 days 2013 DOXYCYCLINE HYCLATE 37371246458 No Longer Active Yolande Lindsay MD PhD Active PREVACID 30 MG CPDR Take 1 tablet by mouth daily-PRN LANSOPRAZOLE 36065194948 No Longer Active Yolande Lindsay MD PhD Active PA VITAMIN D-3 2000 UNIT CAPS 1 CAP PO DAILY CHOLECALCIFEROL 68461839830 No Longer Active Yolande Lindsay MD PhD Active CEFDINIR 300 MG CAPS by mouth twice a day CEFDINIR 08379230875 No Longer Active Gab Padron MD Active TOPAMAX 50 MG TABS 1 PO twice daily TOPIRAMATE 96773441582 Active Yolande Lindsay MD PhD Active AZITHROMYCIN 250 MG TABS 2 po qd x 1 day, then 1 po qd x 4 days AZITHROMYCIN 66496986631 No Longer Active Yolande Lindsay MD PhD Active DICLOFENAC SODIUM 75 MG TBEC 1 tablet by q 12 hours PRN headaches DICLOFENAC SODIUM 26171839718 No Longer Active Yolande Lindsay MD PhD Active FLONASE 50 MCG/ACT SUSP 1 spray each nostril am and hs FLUTICASONE PROPIONATE 62233227504 No Longer Active Todd Callaway MD Active ANUSOL-HC 25 MG SUPPOSITORY 1 rectally twice a day as needed for hemorrhoids HYDROCORTISONE JAYDEN (RECTAL) 06147766909 No Longer Active Yolande Lindsay MD PhD Active ANUSOL-HC 25 MG SUPPOSITORY 1 suppository rectally each evening as needed for anal fissure HYDROCORTISONE JAYDEN (RECTAL) 94532965986 No Longer Active LONNIE Iglesias Active VALIUM 5 MG TAB 1 po 30 minutes prior to your MRI DIAZEPAM 37322433278 No Longer Active LONNIE Iglesias Active METHOCARBAMOL 750 MG TABS 1 PO QID PRN METHOCARBAMOL 14200355104 No Longer Active Daphne Wetzel APRN Active NITROSTAT 0.4 MG SUBL as directed NITROGLYCERIN 11321645337 No Longer Active Rodrigo Sarah APRN Active ROBAXIN-750 750 MG TABS 2 four times a day for 3 days as needed for muscle spasm, then 1 four times a day as needed METHOCARBAMOL 90043576201 No Longer Active Rodrigo Sarah APRN Active HYDROCODONE-ACETAMINOPHEN 5-325 MG TABS 1 q 4-6 hrs prn HYDROCODONE-ACETAMINOPHEN 89371552675 No Longer Active Rodrigo Sarah APRN Active VERAPAMIL HCL CR 180 MG CR-TABS TAKE 1 TAB DAILY VERAPAMIL HCL 10568695981 No Longer Active Yolande Lindsay MD PhD Active BACTRIM DS 800-160 MG TAB 1 tab by mouth twice daily TRIMETHOPRIM-SULFAMETHOXAZOLE 97759495249 No Longer Active Yolande Lindsay MD PhD Active NEXIUM 40 MG PACK 1 by mouth daily ESOMEPRAZOLE MAGNESIUM 88429070100 No Longer Active Des Hines MD Active EPIPEN 2-CHARLETTE 0.3 MG/0.3ML OMARI as need for allergic reaction EPINEPHRINE 97131605958 Active Yolande Lindsay MD PhD Active NEXIUM 40 MG CPDR 1 PO Q D DAY ESOMEPRAZOLE MAGNESIUM 59058254819 No Longer Active Sadia Perry RN Active NEXIUM 40 MG PACK 1 by mouth daily NEXIUM 40 MG PACK ESOMEPRAZOLE MAGNESIUM Inactive VERAPAMIL HCL CR 180 MG CR-TABS TAKE 1 TAB DAILY VERAPAMIL HCL CR 180 MG CR-TABS VERAPAMIL HCL Inactive HYDROCODONE-ACETAMINOPHEN 5-325 MG TABS 1 q 4-6 hrs prn HYDROCODONE-ACETAMINOPHEN 5-325 MG TABS 317635 HYDROCODONE-ACETAMINOPHEN Inactive ROBAXIN-750 750 MG TABS 2 four times a day for 3 days as needed for muscle spasm, then 1 four times a day as needed ROBAXIN-750 750 MG TABS 924751 METHOCARBAMOL Inactive NITROSTAT 0.4 MG SUBL as directed NITROSTAT 0.4 MG SUBL NITROGLYCERIN Inactive METHOCARBAMOL 750 MG TABS 1 PO QID PRN METHOCARBAMOL 750 MG TABS 788518 METHOCARBAMOL Inactive VALIUM 5 MG TAB 1 po 30 minutes prior to your MRI VALIUM 5 MG TAB 348033 DIAZEPAM Inactive ANUSOL-HC 25 MG SUPPOSITORY 1 suppository rectally each evening as needed for anal fissure ANUSOL-HC 25 MG SUPPOSITORY 6976797 HYDROCORTISONE JAYDEN (RECTAL) Inactive ANUSOL-HC 25 MG SUPPOSITORY 1 rectally twice a day as needed for hemorrhoids ANUSOL-HC 25 MG SUPPOSITORY 3447740 HYDROCORTISONE JAYDEN (RECTAL) Inactive FLONASE 50 MCG/ACT SUSP 1 spray each nostril am and hs FLONASE 50 MCG/ACT SUSP FLUTICASONE PROPIONATE Inactive DICLOFENAC SODIUM 75 MG TBEC 1 tablet by q 12 hours PRN headaches DICLOFENAC SODIUM 75 MG TBEC 905018 DICLOFENAC SODIUM Inactive PA VITAMIN D-3 2000 UNIT CAPS 1 CAP PO DAILY PA VITAMIN D-3 2000 UNIT CAPS CHOLECALCIFEROL Inactive PREVACID 30 MG CPDR Take 1 tablet by mouth daily-PRN PREVACID 30 MG CPDR 196309 LANSOPRAZOLE Inactive DOXYCYCLINE HYCLATE 100 MG TAB 1 tab twice a day for 14 days 2013 DOXYCYCLINE HYCLATE 100 MG TAB 6730598 DOXYCYCLINE HYCLATE Inactive XOPENEX 1.25 MG/3ML NEBU 1 neb every 4 hours if needed for cough/congestion XOPENEX 1.25 MG/3ML NEBU 236145 LEVALBUTEROL HCL Inactive CYCLOBENZAPRINE HCL 10 MG TABS 1/2 - 1 tab by mouth three times daily if needed for spasms/pain CYCLOBENZAPRINE HCL 10 MG TABS 384422 CYCLOBENZAPRINE HCL Inactive ALBUTEROL SULFATE 0.083 % NEBU SOLN one vial per nebulizer every 4-6 hours as needed ALBUTEROL SULFATE 0.083 % NEBU SOLN 441161 ALBUTEROL SULFATE Inactive CEFTIN 500 MG TAB 1 twice a day CEFTIN 500 MG TAB 334923 CEFUROXIME AXETIL Inactive ZOFRAN ODT 4 MG TBDP 1 pill dissolved by mouth every 4 hours if needed for nausea ZOFRAN ODT 4 MG TBDP 668867 ONDANSETRON Inactive ADULT ASPIRIN EC LOW STRENGTH 81 MG TBEC Take 1 tablet by mouth daily 2014 ADULT ASPIRIN EC LOW STRENGTH 81 MG TBEC 693492 ASPIRIN Inactive CALCIUM 600+D PLUS MINERALS 600-400 [...] or an apple NIACIN 500 MG TABS 164070 NIACIN Inactive NIASPAN 500 MG ORAL CR-TABS 1 pill nightly x 1 week, then 2 pills nightly x 1 week, then 3 pills nightly x 1 week, then 4 pills nightly NIASPAN 500 MG ORAL CR-TABS NIACIN (ANTIHYPERLIPIDEMIC) Inactive OXYCODONE HCL 5 MG ORAL CAPS 1 TAB PO Q HS OXYCODONE HCL 5 MG ORAL CAPS 2114573 OXYCODONE HCL Inactive FLUTICASONE PROPIONATE 50 MCG/ACT SUSP 1 to 2 sprays each nostril daily 04/21 FLUTICASONE PROPIONATE 50 MCG/ACT SUSP 625854 FLUTICASONE PROPIONATE Inactive POLYTRIM 14636-6.1 UNIT/ML-% SOLN 1 gtt to affected eye q3h x 7 days POLYTRIM 17598-0.1 UNIT/ML-% SOLN 529874 POLYMYXIN B- TRIMETHOPRIM Inactive CHERATUSSIN AC 100-10 MG/5ML SYRP 1 tsp by mouth every 4 hours as needed for cough CHERATUSSIN AC 100-10 MG/5ML SYRP 369061 GUAIFENESIN-CODEINE Inactive LEVOTHYROXINE SODIUM 75 MCG TABS Take 1 tab daily LEVOTHYROXINE SODIUM 75 MCG TABS 762707 LEVOTHYROXINE SODIUM Inactive BACTRIM DS 800-160 MG TAB 1 tab by mouth twice daily BACTRIM DS 800-160 MG TAB 863916 TRIMETHOPRIM-SULFAMETHOXAZOLE Inactive AZITHROMYCIN 250 MG TABS 2 po qd x 1 day, then 1 po qd x 4 days AZITHROMYCIN 250 MG TABS 0442432 AZITHROMYCIN Inactive CEFDINIR 300 MG CAPS by mouth twice a day CEFDINIR 300 MG CAPS 20020708 CEFDINIR Inactive AZITHROMYCIN 250 MG TABS 2 pills on day 1, then 1 pill daily x 4 days AZITHROMYCIN 250 MG TABS 4780478 AZITHROMYCIN Inactive DOXYCYCLINE HYCLATE 100 MG CAP 1 cap by mouth twice daily DOXYCYCLINE HYCLATE 100 MG CAP 3586123 DOXYCYCLINE HYCLATE Inactive FUROSEMIDE 20 MG TABS 1 pill by mouth daily, for edema FUROSEMIDE 20 MG TABS 415815 FUROSEMIDE Inactive AZITHROMYCIN 250 MG TABS 2 po qd x 1 day, then 1 po qd x 4 days AZITHROMYCIN 250 MG TABS 4576804 AZITHROMYCIN Inactive CEFTIN 500 MG TAB 1 twice a day CEFTIN 500 MG TAB 150299 CEFUROXIME AXETIL Inactive CEFDINIR 300 MG CAPS 1 po BID x 10 days CEFDINIR 300 MG CAPS 20020708 CEFDINIR Inactive BACTRIM DS 800-160 MG TAB 1 tab by mouth twice daily BACTRIM DS 800-160 MG TAB 299034 TRIMETHOPRIM-SULFAMETHOXAZOLE Inactive Immunizations Vaccine Administration Date Value Standard Description Seasonal influenza vaccine, injectable, containing preservative, for > 3 years old (Afluria, FluLaval, Fluzone, Fluvirin, Fluarix, Agriflu(>=18 yo)) Fluzone (>3 yrs.) [YFV967] Influenza, seasonal, injectable influenza immunization (Flu Vax) has been administered Influenza - Unspecified Formulation [CVX88] influenza virus vaccine, unspecified formulation Seasonal influenza vaccine, injectable, containing preservative, for > 3 years old (Afluria, FluLaval, Fluzone, Fluvirin, Fluarix, Agriflu(>=18 yo)) Fluzone (>3 yrs.) [BLU858] Influenza, seasonal, injectable pneumococcal immunization administered Pneumovax 23 [CVX33] pneumococcal polysaccharide vaccine, 23 valent dT (Diphtheria and Tetanus) booster given given Td(adult) unspecified formulation Boostrix (Tetanus toxoid, reduced diphtheria toxoid and acellular pertussis vaccine, adsorbed), booster Boostrix [HSI040] tetanus toxoid, reduced diphtheria toxoid, and acellular [...] Panel - Chemistry sodium, serum 142 mmol/L 651-405 8201/06/30 potassium, serum 4.4 mmol/L 3.5-5.2 chloride, serum 108 mmol/L 98-107 carbon dioxide, venous blood 25.1 mmol/L 21.0-32.0 blood glucose 82 mg/dL 65-110 calcium, serum 9.1 mg/dL 8.5-10.1 urea nitrogen, blood 18 mg/dL 7-18 creatinine, serum 1.31 mg/dL 0.55-1.30 Lab Report: [facility] Advanced Lipid and Inlammation Panel /43485 - Chemistry cholesterol, serum 148 mg/dL 992-645 0454/09/02 HDL cholesterol, serum 55 mg/dL > OR=46 [...] RapidStrep Rflx/Cx, TIERA INFLUENZA A/B - Hematology neutrophils as percent of blood leukocytes 64.0 % 42.2-75.2 hematocrit, blood 33.7 % 36.0-46.0 mean corpuscular volume, RBC 85 fL 80-97 mean corpuscular hemoglobin, RBC 27.7 pg 27.0-31.2 mean corpuscular hemoglobin concentration, RBC 32.4 G/DL % 31.8- 35.4 red blood cell distribution width 20.2 % 11.6-14.8 platelet count 179 10^3/MM^3 10*3/mm3 451-468 6672/03/24 monocytes as percent of blood leukocytes 11.3 % 1.7-9.3 lymphocytes as percent of blood leukocytes 22.7 % 20.5-51.1 erythrocyte (RBC) count 3.94 10^6/MM^3 10*6/mm3 4.04-5.48 hemoglobin, blood 10.9 g/dL 12.0-16.0 leukocyte count, blood 5.3 10^3/MM^3 10*3/mm3 4.6-10.2 Lab Report: CBC W/DIFF, RapidStrep Rflx/Cx, TIERA INFLUENZA A/B - Lab Microbial identification kit, rapid strep method Negative-Throat Culture to Follow Negative Lab Report: CBC W/DIFF, RapidStrep Rflx/Cx, TIERA INFLUENZA A/B - Toxicology rapid flu test Negative Negative;Positive Lab Report: CBC, Comp. Metabolic Panel, Thyroid Stimulating Hormone (L) - Chemistry potassium, serum 4.6 mmol/L 3.5-5.2 chloride, serum 113 mmol/L 98-107 carbon dioxide, venous blood 23.7 mmol/L 21.0-32.0 blood glucose 94 mg/dL 65-110 urea nitrogen, blood 21 mg/dL 7-18 creatinine, serum 1.20 mg/dL 0.60-1.30 alanine aminotransferase (SGPT), serum 28 U/L 12-78 aspartate aminotransferase (SGOT), serum 15 U/L 15-37 calcium, serum 8.1 mg/dL 8.5-10.1 bilirubin, serum, total 0.40 mg/dL 0.00-1.00 TSH 0.57 m[iU]/mL 0.36-3.74 sodium, serum 145 mmol/L 136-145 Lab Report: CBC, Comp. Metabolic Panel, Thyroid Stimulating Hormone (L) - Hematology platelet count 166 10^3/MM^3 10*3/mm3 617-222 2531/09/02 red blood cell distribution width 15.4 % 11.6-14.8 mean corpuscular hemoglobin concentration, RBC 33.1 G/DL % 31.8- 35.4 mean corpuscular hemoglobin, RBC 30.3 pg 27.0-31.2 mean corpuscular volume, RBC 91 fL 80-97 hematocrit, blood 35.2 % 36.0-46.0 hemoglobin, blood 11.6 g/dL 12.0-16.0 erythrocyte (RBC) count 3.84 10^6/MM^3 10*6/mm3 4.04-5.48 leukocyte count, blood 4.7 10^3/MM^3 10*3/mm3 4.6-10.2 Lab Report: Comp. Metabolic Panel, Erythrocyte Sed Rate - Chemistry blood glucose 90 mg/dL 65-110 urea nitrogen, blood 19 mg/dL 7-18 carbon dioxide, venous blood 22.4 mmol/L 21.0-32.0 potassium, serum 4.2 mmol/L 3.5-5.2 chloride, serum 105 mmol/L 98-107 sodium, serum 139 mmol/L 663-747 1632/03/24 creatinine, serum 1.35 mg/dL 0.55-1.30 alanine aminotransferase (SGPT), serum 33 U/L -78 aspartate aminotransferase (SGOT), serum 23 U/L 15-37 calcium, serum 8.3 mg/dL 8.5-10.1 bilirubin, serum, total 0.20 mg/dL 0.00-1.00 Lab Report: Comp. Metabolic Panel, UADIP W/MICRO, AUTO, Thyroid Stimulat ... - Chemistry protein, total urine random Negative mg/dL Negative sodium, serum 143 mmol/L 049-594 5513/05/02 chloride, serum 108 mmol/L 98-107 blood glucose 70 mg/dL 65-110 urea nitrogen, blood 20 mg/dL 7-18 creatinine, serum 1.21 mg/dL 0.55-1.30 alanine aminotransferase (SGPT), serum 32 U/L -78 aspartate aminotransferase (SGOT), serum 18 U/L 15-37 calcium, serum 8.5 mg/dL 8.5-10.1 bilirubin, serum, total 0.30 mg/dL 0.00-1.00 carbon dioxide, venous blood 25.6 mmol/L 21.0-32.0 potassium, serum 4.8 mmol/L 3.5-5.2 RBC, urine, dipstick Negative Negative TSH 0.63 m[iU]/mL 0.36-3.74 thyroxine, serum, free 0.80 ng/dL 0.76-1.46 Lab Report: Comp. Metabolic Panel, UADIP W/MICRO, AUTO, Thyroid Stimulat ... - Urinalysis urobilinogen, urine, semiquantitative (dipstick) 0.2 Normal leukocyte esterase, urine, by dipstick Negative Negative nitrite, urine, semiquantitative Negative Negative urine color Yellow Colorless;Lightyellow;Straw;Yellow appearance, urine Clear Clear specific gravity, urine 1.015 1.000-1.030 pH, urine, semiquantitative 6.5 5.0-8.5 glucose, urine, semiquantitative Negative Negative ketones, urine, by test strip Negative Negative bilirubin, urine Negative Negative Lab Report: TIERA INFLUENZA A/B - Toxicology rapid flu test Negative Negative;Positive Lab Report: Thyroid Stimulating Hormone (L), Free Thyroxine (L) - Chemistry TSH 1.08 m[iU]/mL 0.36-3.74 thyroxine, serum, free 0.75 ng/dL 0.76-1.46 Lab Report: UADIP W/MICRO, AUTO, CBC W/DIFF, Comp. Metabolic Panel - Chemistry RBC, urine, dipstick Negative Negative protein, total urine random Negative mg/dL Negative sodium, serum 142 mmol/L 151-278 0880/07/18 carbon dioxide, venous blood 27.8 mmol/L 21.0-32.0 [...] CBC W/DIFF, Comp. Metabolic Panel - Urinalysis appearance, urine Clear Clear specific gravity, urine 1.020 1.000-1.030 glucose, urine, semiquantitative Negative Negative ketones, urine, by test strip Negative Negative bilirubin, urine Negative Negative urine color Yellow Colorless;Lightyellow;Straw;Yellow pH, urine, semiquantitative 6.5 5.0-8.5 urobilinogen, urine, [...] mg/dL Encounters Code Encounter Date Provider Facility CPT-75646 Level 3 Est. Patient 15:27:02 CDT Jared Og MD [facility] CPT-12070 Level 4 Est. Patient 09:25:27 CDT Gab Padron MD [facility] CPT-27551 Level 3 Est. Patient 10:29:41 CDT Rodrigo Sarah APRN [facility] CPT-51013 Level 4 Est. Patient 17:51:05 CDT Gab Padron MD [facility] CPT-23926 Level 3 Est. Patient 14:18:08 CDT Gab Padron MD [facility] CPT-20307 Level 4 Est. Patient 10:18:54 CDT Gab Padron MD [facility] CPT-29184 Level 3 Est. Patient 11:30:07 CDT Rodrigo Sarah APRN [facility] CPT-76009 Level 4 Est. Patient 21:02:30 ACCOUNT MANAGER Gab Padron MD [facility]-98351 Level 3 Est. Patient 11:02:19 ACCOUNT MANAGER Gab Padron MD [facility] CPT-57594 Level 4 Est. Patient 22:24:31 ACCOUNT MANAGER Gab Padron MD [facility] [place]-80418 Level 3 Est. Patient 18:33:46 ACCOUNT MANAGER Gab Padron MD [facility] [place]-76292 Level 3 Est. Patient 16:19:11 CDT Yolande Lindsay MD [facility]-71090 Level 3 Est. Patient 18:59:14 CDT Yolande Lindsay MD [facility]-80900 Level 4 Est. Patient 21:29:26 CDT Yolande Lindsay MD [facility]-20904 Level 3 Est. Patient 07:37:45 CDT Yolande Lindsay MD [facility]-54203 Level 3 Est. Patient 17:03:46 CDT Yolande Lindsay MD [facility]-07701 Level 4 Est. Patient 20:02:13 ACCOUNT MANAGER Yolande Lindsay MD PhD [facility] CPT-64176 Level 3 Est. Patient 16:02:07 ACCOUNT MANAGER Alexis Ordaz MD [facility] CPT-10245 Level 3 Est. Patient 12:41:24 ACCOUNT MANAGER Yolande Lindsay MD PhD [facility] [place]-48193 Level 3 Est. Patient 15:41:20 ACCOUNT MANAGER Yolande Lindsay MD [facility] CPT-23603 Level 3 Est. Patient 13:20:02 ACCOUNT MANAGER Yolande Lindsay MD [facility]-12407 Level 3 Est. Patient 15:00:38 CDT Jared Og MD [facility]-23334 Level 3 Est. Patient 10:22:32 CDT Yolande Lindsay MD [facility]-48641 Level 3 Est. Patient 17:12:58 CDT Yolande Lindsay MD [facility]-69605 Level 4 Est. Patient 13:30:58 CDT Yolande Lindsay MD [facility]-45287 Level 4 New Patient 09:02:42 CDT Jared Og MD [facility]-60536 Level 3 Est. Patient 08:19:07 CDT Yolande Lindsay MD [facility]-31419 Level 3 Est. Patient 12:00:13 ACCOUNT MANAGER Gab Padron MD [facility] [place]-75008 Level 3 Est. Patient 16:15:23 ACCOUNT MANAGER Yolande Lindsay MD [facility] CPT-28358 Level 2 Est. Patient 19:47:15 CDT Yolande Lindsay MD [facility]-66702 Level 3 Est. Patient 21:38:31 CDT Yolande Lindsay MD [facility]-87589 Level 3 Est. Patient 10:25:12 CDT Adiel PERAZA [facility]-58486 Level 4 Est. Patient 10:51:58 CDT Yolande Lindsay MD [facility]-23689 Level 3 Est. Patient 14:04:55 ACCOUNT MANAGER Rodrigo Sarah [facility]-37410 Level 3 Est. Patient 10:46:35 ACCOUNT MANAGER Rodrigo Sarah [facility]-62387 Level 3 Est. Patient 14:24:37 ACCOUNT MANAGER Yolande Lindsay MD [facility] CPT-08955 Level 3 Est. Patient 17:41:58 ACCOUNT MANAGER Yolande Lindsay MD [facility] CPT-53946 Level 2 Est. Patient 22:01:41 ACCOUNT MANAGER Rodrigo Sarah [facility] CPT-33105 Level 2 Est. Patient 22:01:11 ACCOUNT MANAGER Rodrigo Sarah [facility] CPT-29903 Level 3 Est. Patient 10:12:29 ACCOUNT MANAGER Rodrig[facility] [facility] CPT-09174 Level 3 Est. Patient 11:05:44 CDT Alexis Ordaz MD [facility] CPT-35563 Level 3 Est. Patient 14:57:20 CDT Yolande Lindsay MD [facility] CPT-09838 Level 3 Est. Patient 14:40:57 CDT Yolande Lindsay MD [facility] CPT-98439 Level 3 Est. Patient 20:55:40 CDT Yolande Lindsay MD [facility] CPT-17849 Level 3 Est. Patient 12:42:38 ACCOUNT MANAGER Yolande Lindsay MD [facility] CPT-95297 Level 3 Est. Patient 11:54:49 ACCOUNT MANAGER Des Hines MD [facility] CPT-64698 Level 3 Est. Patient 17:06:38 CDT Dewayne PERAZA [facility] Procedures Code Procedure Name Date Entry Date Standard Description CPT-11761 Abd single AP View - XRAY USE ONLY 11:16:17 CDT CPT-20186 T spine AP/ Lat - XRAY USE ONLY 09:34:21 CDT CPT-16733 Chest 2V Frontal and Lat - XRAY USE ONLY 10:48:51 CDT CPT-00444 LS spine comp w obliq 13:28:00 ACCOUNT MANAGER CPT-J1040 Depo Medrol 80 mg (Methyl Prednisolone Acetate) 10:51: 28 ACCOUNT MANAGER CPT-J1100 Decadron 8mg (Dexamethasone) 10:51:28 ACCOUNT MANAGER CPT-42317 Abx/Therapy Injection 10:51:28 ACCOUNT MANAGER CPT-J1100 Decadron 8mg (Dexamethasone) 21:02:30 ACCOUNT MANAGER CPT-J1040 Depo Medrol 80 mg (Methyl Prednisolone Acetate) 21:02: 30 ACCOUNT MANAGER [id number] Event Monitor - MC Transmission 09:12:32 CDT 08/06 [id number] Event Monitor - MC review and interp 09:12:32 CDT [id number] Event Monitor - MC recording 09:12:32 CDT CPT-37223 EKG Trac and Interp 16:50:22 CDT CPT-J1030 Depo Medrol 40 mg (Methyl Prednisolone Acetate) 17:05: 54 CDT CPT-J1100 Decadron 4mg (Dexamethasone) 17:05:54 CDT CPT-40439 Abx/Therapy Injection 17:05:54 CDT CPT-J1100 Decadron 4mg (Dexamethasone) 16:55:28 CDT CPT-J1030 Depo Medrol 40 mg (Methyl Prednisolone Acetate) 16:55: 28 CDT CPT-63856 Ankle Complete - Min 3V 15:58:50 CDT CPT-01345 Knee 3V 15:58:50 CDT CPT-22218 Hip comp min 2V 15:58:50 CDT CPT-J2270 Morphine Sulfate 10 mg 14:25:44 ACCOUNT MANAGER CPT-J2550 Phenergan 12.5 mg (Promethazine) 14:25:44 ACCOUNT MANAGER CPT-84488 Abx/Therapy Injection 14:25:44 ACCOUNT MANAGER CPT-J2550 Phenergan 12.5 mg (Promethazine) 14:08:03 ACCOUNT MANAGER CPT-J2270 Morphine Sulfate 10 mg 14:08:03 ACCOUNT MANAGER CPT-38143 Bladder Scan 15:00:38 CDT CPT-TCMM Transitional Care Mgmt-Moderate 09:52:22 CDT CPT-J1030 Depo Medrol 40 mg (Methyl Prednisolone Acetate) 10:55: 18 CDT CPT-J1100 Decadron 4mg (Dexamethasone) 10:55:18 CDT CPT-90831 Abx/Therapy Injection 10:55:18 CDT CPT-J1030 Depo Medrol 40 mg (Methyl Prednisolone Acetate) 10:22: 32 CDT CPT-J1100 Decadron 4mg (Dexamethasone) 10:22:32 CDT CPT-19164 Postop F/U Visit 14:37:13 CDT CPT-36376 Ankle Complete - Min 3V 17:11:58 CDT CPT-83418 Foot comp min 3V 17:11:58 CDT CPT-78438 Bladder Scan 09:56:58 CDT CPT-59194 Postop F/U Visit 09:56:58 CDT CPT-78633 Cystoscopy 09:02:42 CDT CPT-20946 Bladder Scan 09:02:42 CDT CPT-92208 Abd single AP View 16:00:35 CDT CPT-49346 Administration single or combination vaccine inc oral 10 :15:43 CDT CPT-24554 Influenza split virus > age 3 10:15:43 CDT CPT-82726 Nail Avulsion 09:24:57 CDT CPT-OV Office Visit 11:15:41 CDT CPT-49472 Abx/Therapy Injection 10:51:30 CDT CPT-J3301 Kenalog 40 mg (Triamcinolone Acetonide) 10:25:12 CDT CPT-J1100 Decadron 4mg (Dexamethasone) 10:25:12 CDT CPT-64401 Anoscopy diagnostic 10:36:12 CDT CPT-OV Office Visit 15:34:31 CDT CPT-88240 Abx/Therapy Injection 08:21:15 ACCOUNT MANAGER CPT-J1885 Toradol 60 mg (Ketorolac) 10:46:35 ACCOUNT MANAGER CPT-OV Office Visit 19:51:16 ACCOUNT MANAGER CPT-81799 Spec Collection and Handling Fee 14:34:18 ACCOUNT MANAGER CPT-PV Prev. Care Visit 14:19:18 ACCOUNT MANAGER CPT-09384 Postop F/U Visit 14:47:51 ACCOUNT MANAGER CPT-35709 Postop F/U Visit 15:15:14 ACCOUNT MANAGER CPT-07054 Postop F/U Visit 14:41:43 CDT CPT-41793 Postop F/U Visit 15:47:46 CDT CPT-OV Office Visit 15:27:23 CDT CPT-OV Office Visit 17:20:34 CDT CPT-02781 Abx/Therapy Injection 15:05:57 CDT CPT-J1100 Decadron 8mg (Dexamethasone) 14:44:57 CDT CPT-J1040 Depo Medrol 80 mg (Methyl Prednisolone Acetate) 14:44: 57 CDT CPT-JTINJ Joint Injection 10:17:37 CDT CPT-87278 Administration 2+ single or combination vaccines inc oral 13:01:46 ACCOUNT MANAGER CPT-73115 Administration single or combination vaccine inc oral 13 :01:46 ACCOUNT MANAGER CPT-89279 Pneumovax 13:01:46 ACCOUNT MANAGER CPT-71083 Influenza split virus > age 3 13:01:46 ACCOUNT MANAGER CPT-52066 Administration single or combination vaccine inc oral 08 :56:49 CDT CPT-12041 Tdap 08:56:49 CDT
--- OUTSIDE RECORDS SUMMARY | 2017-03-21 21:17 | XMS REPORT ---
Author Author [facility] Medical Staff Organization [facility] Address [address] [place] [id number] Phone [phone] Care Team Providers Care Handle Sewer Name Role Phone REGAN HUTSON, EVELYN PP [phone] Summary purpose TRANSITION OF CARE AUTO GENERATION [...] tests and/or laboratory data RESULTS Routine Urinalysis [id number]:15:00 Result Normal Range Units Color YELLOW Clarity Clear Specific [place] 1.010 1.003-1.035 pH 6.5 4.5-8.0 Glucose NEGATIVE Bilirubin NEGATIVE Ketones NEGATIVE Protein NEGATIVE Urobilinogen 0.2 0-0.2 E.U./dL Nitrites NEGATIVE Blood NEGATIVE Leukocytes NEGATIVE WBCs No WBC's Seen RBCs 0-5 Squamous Epithelial Few Bacteria Rare Amount Chemistry [id number]:15:00 Result Normal Range Units Sodium 139 134-145 mEq/l Potassium 4.1 3.5-5.1 mEq/l Chloride 105 98-107 mEq/l CO2 24.0 22-28 mEq/l Glucose H 113 70-105 mg/dl BUN H 26 7-18 mg/dl Creatinine H 1.30 0.6-1.0 mg/dl Calcium 8.6 8.4-10.2 mg/dl PO4 4.1 1.9-4.5 mg/dl Albumin L 3.4 3.5-5 g/dl Osmolality 283.1 280-300 mOsm/L Anion GAP 10.0 8-16 BUN/Creatinine Ratio 20.0 10-20 Estimated GFR L 43 >=60 mL/min/1.7 Hematology :15:00 Result Normal Range Units WBC L 4.3 4.8-10.8 103/uL RBC L 3.2 4.2-5.4 106/uL HGB L 8.9 12.0-16.0 g/dl HCT L 29.3 36.9-47.0 % MCV 91.6 81-99 FL MCH 27.8 27-31 pg MCHC L 30.4 33-37 g/dl RDW 13.8 11.5-15.5 % PLT 214 130-400 103/uL MPV 9.9 7.3-10.4 FL Body Fluid [id number]:15:00 Result Normal Range Units pH 6.5 4.5-8.0 Radiology Results :15:00 Result Normal Range Units MPV 9.9 7.3-10.4 FL History of procedures Procedure Code Code Type Description Date Performed Performing Physician 94461 CPT-4 RENAL FUNCTION PANEL 02-05-2015 CHARLES CALLAHAN 53267 CPT-4 COMPLETE CBC, AUTOMATED 02-05-2015 CHARLES CALLAHAN 02181 CPT-4 URINALYSIS, AUTO W/SCOPE 02-05-2015 CHARLES CALLAHAN Functional status No functional or cognitive [...]
--- OUTSIDE RECORDS SUMMARY | 2017-03-21 21:18 | XMS REPORT | Clinical Summary ---
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.] Flank pain, left 789.09 Active Jillina Frazell FINANCIAL ANALYST Abdominal pain, other specified site; multiple sites Abdominal pain, generalized 789.07 Active Jillina Farshadzell FINANCIAL ANALYST Abdominal pain, generalized Back pain, thoracic region, left 724.1 Active Jillina Frazell FINANCIAL ANALYST Pain in thoracic spine Abdominal pain, left [...] every 6 hrs prn pain TRAMADOL HCL 35664459539 Active Gab Padron MD Active PREDNISONE 20 MG TAB 2 tabs daily for 3 days, 1 tab daily for 3 days, 1/2 tab daily for 2 days PREDNISONE 54816904276 No Longer Active Gab Padron MD Active ZOFRAN ODT 4 MG TBDP 1 po q6hr PRN Nausea ONDANSETRON 43573714855 Active Gab Padron MD Active IBUPROFEN 600 MG TAB 1 tablet by mouth every 6 hours for 7 days, then 1 tablet every 6 hours as needed. Take with food IBUPROFEN 69952756160 Active Jillina Frazell FINANCIAL ANALYST Active BACTRIM DS 800-160 MG TAB 1 tab by mouth twice daily TRIMETHOPRIM-SULFAMETHOXAZOLE 24889109671 No Longer Active Gab Padron MD Active ADVAIR DISKUS 250-50 MCG/DOSE AEPB 1 puff BID FLUTICASONE- SALMETEROL 34807766585 Active Silvestrellnacho Sarah APRN Active LEVOTHYROXINE SODIUM 75 MCG TABS Take 1 tab daily LEVOTHYROXINE SODIUM 93766062617 No Longer Active Mariana Medellinelise [facility] Active SYNTHROID 88 MCG ORAL TABS Take one by mouth daily LEVOTHYROXINE SODIUM 99426568304 Active Gab Padron MD Active CHERATUSSIN AC 100-10 MG/5ML SYRP 1 tsp by mouth every 4 hours as needed for cough GUAIFENESIN-CODEINE 02495954656 No Longer Active Gab Padron MD Active POLYTRIM 34084-3.1 UNIT/ML-% SOLN 1 gtt to affected eye q3h x 7 days POLYMYXIN B-TRIMETHOPRIM 71589275179 No Longer Active Gab Padron MD Active FLUTICASONE PROPIONATE 50 MCG/ACT SUSP 1 to 2 sprays each nostril daily 04/21 FLUTICASONE PROPIONATE 67488233263 No Longer Active Gab Padron MD Active TRILEPTAL 600 MG TABS Take one 1 tablet in Am and 1 tablet at night OXCARBAZEPINE 86183566992 Active Gab Padron MD Active CEFDINIR 300 MG CAPS 1 po BID x 10 days CEFDINIR 56905177018 No Longer Active Rodrigo Sarah APRN Active CEFTIN 500 MG TAB 1 twice a day CEFUROXIME AXETIL 09290008797 No Longer Active Gab Padron MD Active AZITHROMYCIN 250 MG TABS 2 po qd x 1 day, then 1 po qd x 4 days AZITHROMYCIN 81728028474 No Longer Active Rodrigo Sarah APRN Active CLARITIN 10 MG TAB 1 tablet by mouth daily as needed for allergies LORATADINE 22618775071 Active Rodrigo Sarah APRN Active OXYCODONE HCL 5 MG ORAL CAPS 1 TAB PO Q HS OXYCODONE HCL 31275481580 No Longer Active Rodrigo Sarah APRN Active NIASPAN 500 MG ORAL CR-TABS 1 pill nightly x 1 week, then 2 pills nightly x 1 week, then 3 pills nightly x 1 week, then 4 pills nightly NIACIN (ANTIHYPERLIPIDEMIC) 39738191196 No Longer Active Rodrigo Sarah APRN Active NIACIN 500 MG TABS 1 pill by mouth nightly x 1 week, then 2 pills x 1 week, then 3 pills x 1 week, then 4 pills nightly - take after evening meal, with applesauce or an apple NIACIN 56240525543 No Longer Active Yolande Lindsay MD PhD Active FISH OIL 1000 MG CAPS 3 pills daily OMEGA-3 FATTY ACIDS 11292735923 Active Yolande Lindsay MD PhD Active TRIAMCINOLONE ACETONIDE 0.1 % CREA apply bid sparingly to rash TRIAMCINOLONE ACETONIDE 77642334496 Active Yolande Lindsay MD PhD Active FUROSEMIDE 20 MG TAB 1 tablet by mouth daily FUROSEMIDE 54892744385 Active Tisha Lambert APRN Active LISINOPRIL 20 MG ORAL TABS 1 tab by mouth daily LISINOPRIL 61819350847 Active Tisha Fausto FINANCIAL ANALYST Active FUROSEMIDE 20 MG TABS 1 pill by mouth daily, for edema FUROSEMIDE 48931004192 No Longer Active Yolande Lindsay MD PhD Active ATORVASTATIN CALCIUM 10 MG TABS 1 pill by mouth daily, for cholesterol 09/06 ATORVASTATIN CALCIUM 69947879889 Active Gab Padron MD Active CALCIUM 600+D PLUS MINERALS 600-400 MG-UNIT ORAL CHEW 1 tab by mouth daily CALCIUM CARBONATE-VIT D-MIN 96656645889 No Longer Active Yolande Lindsay MD PhD Active CYCLOBENZAPRINE HCL 10 MG TABS 1 tablet by mouth three times daily as needed for muscle spasm/pain CYCLOBENZAPRINE HCL 62821071678 Active Yolande Lindsay MD PhD Active ONDANSETRON 4 MG TBDP 1 q4h PRN nausea ONDANSETRON 35997547459 Active Yolande Lindsay MD PhD Active ADULT ASPIRIN EC LOW STRENGTH 81 MG TBEC Take 1 tablet by mouth daily 2014 ASPIRIN 85760093891 No Longer Active Yolande Lindsay MD PhD Active ZOFRAN ODT 4 MG TBDP 1 pill dissolved by mouth every 4 hours if needed for nausea ONDANSETRON 60430789416 No Longer Active Yolande Lindsay MD PhD Active CEFTIN 500 MG TAB 1 twice a day CEFUROXIME AXETIL 69846613753 No Longer Active Yolande Lindsay MD PhD Active ALBUTEROL SULFATE 0.083 % [facility] SOLN one vial per nebulizer every 4-6 hours as needed ALBUTEROL SULFATE 89058436026 No Longer Active Alexis Ordaz MD Active DOXYCYCLINE HYCLATE 100 MG CAP 1 cap by mouth twice daily DOXYCYCLINE HYCLATE 23288080231 No Longer Active Yolande Lindsay MD PhD Active CYCLOBENZAPRINE HCL 10 MG TABS 1/2 - 1 tab by mouth three times daily if needed for spasms/pain CYCLOBENZAPRINE HCL 87696015848 No Longer Active Yolande Lindsay MD PhD Active AZITHROMYCIN 250 MG TABS 2 pills on day 1, then 1 pill daily x 4 days AZITHROMYCIN 59552532835 No Longer Active Yolande Lindsay MD PhD Active XOPENEX 1.25 MG/3ML NEBU 1 neb every 4 hours if needed for cough/congestion LEVALBUTEROL HCL 04900106339 No Longer Active Yolande Lindsay MD PhD Active DOXYCYCLINE HYCLATE 100 MG TAB 1 tab twice a day for 14 days 2013 DOXYCYCLINE HYCLATE 47771349011 No Longer Active Yolande Lindsay MD PhD Active PREVACID 30 MG CPDR Take 1 tablet by mouth daily-PRN LANSOPRAZOLE 54469031618 No Longer Active Yolande Lindsay MD PhD Active PA VITAMIN D-3 2000 UNIT CAPS 1 CAP PO DAILY CHOLECALCIFEROL 96567620729 No Longer Active Yolande Lindsay MD PhD Active CEFDINIR 300 MG CAPS by mouth twice a day CEFDINIR 33618790315 No Longer Active Gab Padron MD Active TOPAMAX 50 MG TABS 1 PO twice daily TOPIRAMATE 42678829616 Active Yolande Lindsay MD PhD Active AZITHROMYCIN 250 MG TABS 2 po qd x 1 day, then 1 po qd x 4 days AZITHROMYCIN 89397775387 No Longer Active Yolande Lindsay MD PhD Active DICLOFENAC SODIUM 75 MG TBEC 1 tablet by q 12 hours PRN headaches DICLOFENAC SODIUM 41342419234 No Longer Active Yolande Lindsay MD PhD Active FLONASE 50 MCG/ACT SUSP 1 spray each nostril am and hs FLUTICASONE PROPIONATE 50541356934 No Longer Active Todd Callaway MD Active ANUSOL-HC 25 MG SUPPOSITORY 1 rectally twice a day as needed for hemorrhoids HYDROCORTISONE JAYDEN (RECTAL) 21700354360 No Longer Active Yolande Lindsay MD PhD Active ANUSOL-HC 25 MG SUPPOSITORY 1 suppository rectally each evening as needed for anal fissure HYDROCORTISONE JAYDEN (RECTAL) 19372789627 No Longer Active Bozena Coleman EDELMIRAFeliciano Active VALIUM 5 MG TAB 1 po 30 minutes prior to your MRI DIAZEPAM 66197717298 No Longer Active LONNIE Iglesias Active METHOCARBAMOL 750 MG TABS 1 PO QID PRN METHOCARBAMOL 46617540819 No Longer Active Daphne Wetzel FINANCIAL ANALYST Active NITROSTAT 0.4 MG SUBL as directed NITROGLYCERIN 02189569644 No Longer Active Rodrigo Sarah FINANCIAL ANALYST Active ROBAXIN-750 750 MG TABS 2 four times a day for 3 days as needed for muscle spasm, then 1 four times a day as needed METHOCARBAMOL 81166127592 No Longer Active Rodrigo Sarah APRN Active HYDROCODONE-ACETAMINOPHEN 5-325 MG TABS 1 q 4-6 hrs prn HYDROCODONE-ACETAMINOPHEN 81853557318 No Longer Active Jillnacho Sarah APRN Active VERAPAMIL HCL CR 180 MG CR-TABS TAKE 1 TAB DAILY VERAPAMIL HCL 93489229572 No Longer Active Yolande Lindsay MD PhD Active BACTRIM DS 800-160 MG TAB 1 tab by mouth twice daily TRIMETHOPRIM-SULFAMETHOXAZOLE 33139368699 No Longer Active Yolande Lindsay MD PhD Active NEXIUM 40 MG PACK 1 by mouth daily ESOMEPRAZOLE MAGNESIUM 45966725311 No Longer Active Des Hines MD Active EPIPEN 2-CHARLETTE 0.3 MG/0.3ML OMARI as need for allergic reaction EPINEPHRINE 40102318487 Active Yolande Lindsay MD PhD Active NEXIUM 40 MG CPDR 1 PO Q D DAY ESOMEPRAZOLE MAGNESIUM 81154251264 No Longer Active Sadia Perry RN Active NEXIUM 40 MG PACK 1 by mouth daily NEXIUM 40 MG PACK ESOMEPRAZOLE MAGNESIUM Inactive VERAPAMIL HCL CR 180 MG CR-TABS TAKE 1 TAB DAILY VERAPAMIL HCL CR 180 MG CR-TABS VERAPAMIL HCL Inactive HYDROCODONE-ACETAMINOPHEN 5-325 MG TABS 1 q 4-6 hrs prn HYDROCODONE-ACETAMINOPHEN 5-325 MG TABS 867433 HYDROCODONE-ACETAMINOPHEN Inactive ROBAXIN-750 750 MG TABS 2 four times a day for 3 days as needed for muscle spasm, then 1 four times a day as needed ROBAXIN-750 750 MG TABS 039853 METHOCARBAMOL Inactive NITROSTAT 0.4 MG SUBL as directed NITROSTAT 0.4 MG SUBL 789867 NITROGLYCERIN Inactive METHOCARBAMOL 750 MG TABS 1 PO QID PRN METHOCARBAMOL 750 MG TABS 567872 METHOCARBAMOL Inactive VALIUM 5 MG TAB 1 po 30 minutes prior to your MRI VALIUM 5 MG TAB 509341 DIAZEPAM Inactive ANUSOL-HC 25 MG SUPPOSITORY 1 suppository rectally each evening as needed for anal fissure ANUSOL-HC 25 MG SUPPOSITORY 5283497 HYDROCORTISONE JAYDEN (RECTAL) Inactive ANUSOL-HC 25 MG SUPPOSITORY 1 rectally twice a day as needed for hemorrhoids ANUSOL-HC 25 MG SUPPOSITORY 4167114 HYDROCORTISONE JAYDEN (RECTAL) Inactive FLONASE 50 MCG/ACT SUSP 1 spray each nostril am and hs FLONASE 50 MCG/ACT SUSP FLUTICASONE PROPIONATE Inactive DICLOFENAC SODIUM 75 MG TBEC 1 tablet by q 12 hours PRN headaches DICLOFENAC SODIUM 75 MG TBEC 894971 DICLOFENAC SODIUM Inactive PA VITAMIN D-3 2000 UNIT CAPS 1 CAP PO DAILY PA VITAMIN D-3 2000 UNIT CAPS CHOLECALCIFEROL Inactive PREVACID 30 MG CPDR Take 1 tablet by mouth daily-PRN PREVACID 30 MG CPDR 723725 LANSOPRAZOLE Inactive DOXYCYCLINE HYCLATE 100 MG TAB 1 tab twice a day for 14 days 2013 DOXYCYCLINE HYCLATE 100 MG TAB 6244112 DOXYCYCLINE HYCLATE Inactive XOPENEX 1.25 MG/3ML NEBU 1 neb every 4 hours if needed for cough/congestion XOPENEX 1.25 MG/3ML NEBU 292850 LEVALBUTEROL HCL Inactive CYCLOBENZAPRINE HCL 10 MG TABS 1/2 - 1 tab by mouth three times daily if needed for spasms/pain CYCLOBENZAPRINE HCL 10 MG TABS 630996 CYCLOBENZAPRINE HCL Inactive ALBUTEROL SULFATE 0.083 % NEBU SOLN one vial per nebulizer every 4-6 hours as needed ALBUTEROL SULFATE 0.083 % NEBU SOLN 191979 ALBUTEROL SULFATE Inactive CEFTIN 500 MG TAB 1 twice a day CEFTIN 500 MG TAB 493929 CEFUROXIME AXETIL Inactive ZOFRAN ODT 4 MG TBDP 1 pill dissolved by mouth every 4 hours if needed for nausea ZOFRAN ODT 4 MG TBDP 909071 ONDANSETRON Inactive ADULT ASPIRIN EC LOW STRENGTH 81 MG TBEC Take 1 tablet by mouth daily 2014 ADULT ASPIRIN EC LOW STRENGTH 81 MG TBEC 910325 ASPIRIN Inactive CALCIUM 600+D PLUS MINERALS 600-400 [...] or an apple NIACIN 500 MG TABS 975489 NIACIN Inactive NIASPAN 500 MG ORAL CR-TABS 1 pill nightly x 1 week, then 2 pills nightly x 1 week, then 3 pills nightly x 1 week, then 4 pills nightly NIASPAN 500 MG ORAL CR-TABS NIACIN (ANTIHYPERLIPIDEMIC) Inactive OXYCODONE HCL 5 MG ORAL CAPS 1 TAB PO Q HS OXYCODONE HCL 5 MG ORAL CAPS 7987191 OXYCODONE HCL Inactive FLUTICASONE PROPIONATE 50 MCG/ACT SUSP 1 to 2 sprays each nostril daily 04/21 FLUTICASONE PROPIONATE 50 MCG/ACT SUSP 3538449 FLUTICASONE PROPIONATE Inactive POLYTRIM 22234-8.1 UNIT/ML-% SOLN 1 gtt to affected eye q3h x 7 days POLYTRIM 23867-8.1 UNIT/ML-% SOLN 629632 POLYMYXIN B- TRIMETHOPRIM Inactive CHERATUSSIN AC 100-10 MG/5ML SYRP 1 tsp by mouth every 4 hours as needed for cough CHERATUSSIN AC 100-10 MG/5ML SYRP 642031 GUAIFENESIN-CODEINE Inactive LEVOTHYROXINE SODIUM 75 MCG TABS Take 1 tab daily LEVOTHYROXINE SODIUM 75 MCG TABS 681921 LEVOTHYROXINE SODIUM Inactive BACTRIM DS 800-160 MG TAB 1 tab by mouth twice daily BACTRIM DS 800-160 MG TAB 316622 TRIMETHOPRIM-SULFAMETHOXAZOLE Inactive AZITHROMYCIN 250 MG TABS 2 po qd x 1 day, then 1 po qd x 4 days AZITHROMYCIN 250 MG TABS 5692794 AZITHROMYCIN Inactive CEFDINIR 300 MG CAPS by mouth twice a day CEFDINIR 300 MG CAPS 231886 CEFDINIR Inactive AZITHROMYCIN 250 MG TABS 2 pills on day 1, then 1 pill daily x 4 days AZITHROMYCIN 250 MG TABS 4363054 AZITHROMYCIN Inactive DOXYCYCLINE HYCLATE 100 MG CAP 1 cap by mouth twice daily DOXYCYCLINE HYCLATE 100 MG CAP 0947589 DOXYCYCLINE HYCLATE Inactive FUROSEMIDE 20 MG TABS 1 pill by mouth daily, for edema FUROSEMIDE 20 MG TABS 405136 FUROSEMIDE Inactive AZITHROMYCIN 250 MG TABS 2 po qd x 1 day, then 1 po qd x 4 days AZITHROMYCIN 250 MG TABS 3435243 AZITHROMYCIN Inactive CEFTIN 500 MG TAB 1 twice a day CEFTIN 500 MG TAB 228407 CEFUROXIME AXETIL Inactive CEFDINIR 300 MG CAPS 1 po BID x 10 days CEFDINIR 300 MG CAPS 036033 CEFDINIR Inactive BACTRIM DS 800-160 MG TAB 1 tab by mouth twice daily BACTRIM DS 800-160 MG TAB 524799 TRIMETHOPRIM-SULFAMETHOXAZOLE Inactive PREDNISONE 20 MG TAB 2 tabs daily for 3 days, 1 tab daily for 3 days, 1/2 tab daily for 2 days PREDNISONE 20 MG TAB 290250 PREDNISONE Inactive Immunizations Vaccine Administration Date Value Standard Description Seasonal influenza vaccine, injectable, containing preservative, for > 3 years old (Afluria, FluLaval, Fluzone, Fluvirin, Fluarix, Agriflu(>=18 yo)) Fluzone (>3 yrs.) [KNH230] Influenza, seasonal, injectable influenza immunization (Flu Vax) has been administered Influenza - Unspecified Formulation [CVX88] influenza virus vaccine, unspecified formulation pneumococcal immunization administered Pneumovax 23 [CVX33] pneumococcal polysaccharide vaccine, 23 valent Seasonal influenza vaccine, injectable, containing preservative, for > 3 years old (Afluria, FluLaval, Fluzone, Fluvirin, Fluarix, Agriflu(>=18 yo)) Fluzone (>3 yrs.) [HDB217] Influenza, seasonal, injectable dT (Diphtheria and Tetanus) booster given given Td(adult) unspecified formulation Boostrix (Tetanus toxoid, reduced diphtheria toxoid and acellular pertussis vaccine, adsorbed), booster Boostrix [OBZ019] tetanus toxoid, reduced diphtheria toxoid, and acellular [...] Panel - Chemistry sodium, serum 142 mmol/L 674-363 0356/06/30 potassium, serum 4.4 mmol/L 3.5-5.2 chloride, serum [...] 0.80 ng/dL 0.76-1.46 sodium, serum 143 mmol/L 098-405 7880/05/02 carbon dioxide, venous blood 25.6 mmol/L 21.0-32.0 [...] PANEL - Chemistry cholesterol, serum 166 mg/dL 000-921 1472/12/06 triglyceride, serum, fasting 86 mg/dL 30-200 HDL [...] Negative mg/dL Negative sodium, serum 142 mmol/L 334-904 9334/07/18 carbon dioxide, venous blood 27.8 mmol/L 21.0-32.0 [...] negative Encounters Code Encounter Date Provider Facility CPT-12393 Level 3 Est. Patient 17:43:55 QUALITY PROJECT MANAGER Gab Padron MD [facility] CPT-60716 Level 3 Est. Patient 17:07:49 GLO Og MD [facility] CPT-62834 Level 4 Est. Patient 19:55:18 QUALITY PROJECT MANAGER Jared Og MD [facility] CPT-48539 Level 3 Est. Patient 20:13:34 GLO Og MD [facility] CPT-57743 Level 4 Est. Patient 16:31:27 CDT Gab Padron MD [facility] CPT-02826 Level 2 Est. Patient 12:23:38 CDT Jared Og MD [facility] CPT-76764 Level 3 Est. Patient 11:01:51 CDT Gab Padron MD [facility] CPT-20945 Level 3 Est. Patient 15:27:02 CDT Jared Og MD [facility] CPT-78758 Level 4 Est. Patient 09:25:27 CDT Gab Padron MD [facility] CPT-90141 Level 3 Est. Patient 10:29:41 CDT Rodrigo Sarah [facility] CPT-59498 Level 4 Est. Patient 17:51:05 CDT Gab Padron MD [facility] CPT-22722 Level 3 Est. Patient 14:18:08 CDT Gab Padron MD [facility] CPT-08315 Level 4 Est. Patient 10:18:54 CDT Gab Padron MD [facility] CPT-95558 Level 3 Est. Patient 11:30:07 CDT Rodrigo Sarah [facility] CPT-52560 Level 4 Est. Patient 21:02:30 QUALITY PROJECT MANAGER Gab Padron MD [facility] CPT-15693 Level 3 Est. Patient 11:02:19 QUALITY PROJECT MANAGER Gab Padron MD [facility] CPT-44323 Level 4 Est. Patient 22:24:31 QUALITY PROJECT MANAGER Gab Padron MD [facility] CPT-54130 Level 3 Est. Patient 18:33:46 QUALITY PROJECT MANAGER Gab Padron MD [facility] CPT-57699 Level 3 Est. Patient 16:19:11 CDT Yolande Lindsay MD PhD [facility] CPT-30191 Level 3 Est. Patient 18:59:14 CDT Yolande Lindsay MD [facility] CPT-96184 Level 4 Est. Patient 21:29:26 CDT Yolande Lindsay MD [facility]-07688 Level 3 Est. Patient 07:37:45 CDT Yolande Lindsay MD [facility]-01365 Level 3 Est. Patient 17:03:46 CDT Yolande Lindsay MD [facility]-85604 Level 4 Est. Patient 20:02:13 QUALITY PROJECT MANAGER Yolande Lindsay MD [facility]-91757 Level 3 Est. Patient 16:02:07 QUALITY PROJECT MANAGER Alexis Ordaz MD [facility]-62541 Level 3 Est. Patient 12:41:24 QUALITY PROJECT MANAGER Yolande Lindsay MD [facility]-50800 Level 3 Est. Patient 15:41:20 QUALITY PROJECT MANAGER Yolande Lindsay MD [facility]-31082 Level 3 Est. Patient 13:20:02 QUALITY PROJECT MANAGER Yolande Lindsay MD [facility]-19837 Level 3 Est. Patient 15:00:38 CDT Jared Og MD [facility]-42536 Level 3 Est. Patient 10:22:32 CDT Yoladne Lindsay MD [facility]-64221 Level 3 Est. Patient 17:12:58 CDT Yolande Lindsay MD [facility] CPT-75527 Level 4 Est. Patient 13:30:58 CDT Yolande Lindsay MD [facility]-66124 Level 4 New Patient 09:02:42 CDT Jared Og MD [facility]-57224 Level 3 Est. Patient 08:19:07 CDT Yolande Lindsay MD [facility]-33181 Level 3 Est. Patient 12:00:13 QUALITY PROJECT MANAGER Gab Padron MD [facility]-48820 Level 3 Est. Patient 16:15:23 QUALITY PROJECT MANAGER Yolande Lindsay MD [facility]55301 Level 2 Est. Patient 19:47:15 CDT Yolande Lindsay MD [facility]-65327 Level 3 Est. Patient 21:38:31 CDT Yolande Lindsay MD [facility]22865 Level 3 Est. Patient 10:25:12 CDT Adiel PERAZA [facility]-62773 Level 4 Est. Patient 10:51:58 CDT Yolande Lindsay MD [facility]-39365 Level 3 Est. Patient 14:04:55 QUALITY PROJECT MANAGER Rodrigo Sarah [facility]-60098 Level 3 Est. Patient 10:46:35 QUALITY PROJECT MANAGER Rodrigo Sarah [facility]-43080 Level 3 Est. Patient 14:24:37 QUALITY PROJECT MANAGER Yolande Lindsay MD [facility]67922 Level 3 Est. Patient 17:41:58 QUALITY PROJECT MANAGER Yolande Lindsay MD [facility]-94145 Level 2 Est. Patient 22:01:41 QUALITY PROJECT MANAGER Rodrigo Sarah [facility]-87759 Level 2 Est. Patient 22:01:11 QUALITY PROJECT MANAGER Rodrigo Sarah [facility]-88580 Level 3 Est. Patient 10:12:29 QUALITY PROJECT MANAGER Rodrigo Sarah [facility]-81199 Level 3 Est. Patient 11:05:44 CDT Alexis Ordaz MD [facility] CPT-58530 Level 3 Est. Patient 14:57:20 CDT Yolande Lindsay MD [facility] CPT-12778 Level 3 Est. Patient 14:40:57 CDT Yolande Lindsay MD [facility] CPT-67811 Level 3 Est. Patient 20:55:40 CDT Yolande Lindsay MD [facility] CPT-61930 Level 3 Est. Patient 12:42:38 QUALITY PROJECT MANAGER Yolande Lindsay MD [facility] CPT-86526 Level 3 Est. Patient 11:54:49 QUALITY PROJECT MANAGER Des Hines MD [facility] CPT-15400 Level 3 Est. Patient 17:06:38 CDT Dewayne PERAZA [facility] Procedures Code Procedure Name Date Entry Date Standard Description CPT-22831 Hip, complete, 2-3 views - XRAY USE ONLY 17:19:04 QUALITY PROJECT MANAGER CPT-45525 Venipuncture Draw Fee 08:37:59 QUALITY PROJECT MANAGER CPT-90492 Liver Profile - LAB USE ONLY 08:37:59 QUALITY PROJECT MANAGER CPT-74171 Lipid - LAB USE ONLY 08:37:58 QUALITY PROJECT MANAGER CPT-37616 First Vx - Ix admin via ID IM or jet injects without counseling by physician 11:52:31 CDT CPT-45384 Fluzone Preservative Free Intramuscular Suspension 11:52 :31 CDT CPT-44968 Foot, left, comp min 3V - XRAY USE ONLY 09:24:54 CDT CPT-43855 Abd single AP View - XRAY USE ONLY 11:16:17 CDT CPT-53917 T spine AP/ Lat - XRAY USE ONLY 09:34:21 CDT CPT-44012 Chest 2V Frontal and Lat - XRAY USE ONLY 10:48:51 CDT CPT-85532 LS spine comp w obliq 13:28:00 QUALITY PROJECT MANAGER CPT-J1040 Depo Medrol 80 mg (Methyl Prednisolone Acetate) 10:51: 28 QUALITY PROJECT MANAGER CPT-J1100 Decadron 8mg (Dexamethasone) 10:51:28 QUALITY PROJECT MANAGER CPT-60543 Abx/Therapy Injection 10:51:28 QUALITY PROJECT MANAGER CPT-J1100 Decadron 8mg (Dexamethasone) 21:02:30 QUALITY PROJECT MANAGER CPT-J1040 Depo Medrol 80 mg (Methyl Prednisolone Acetate) 21:02: 30 QUALITY PROJECT MANAGER [id number] Event Monitor - MC Transmission 09:12:32 CDT 08/06 [id number] Event Monitor - MC review and interp 09:12:32 CDT [id number] Event Monitor - MC recording 09:12:32 CDT CPT-84546 EKG Trac and Interp 16:50:22 CDT CPT-J1030 Depo Medrol 40 mg (Methyl Prednisolone Acetate) 17:05: 54 CDT CPT-J1100 Decadron 4mg (Dexamethasone) 17:05:54 CDT CPT-01223 Abx/Therapy Injection 17:05:54 CDT CPT-J1100 Decadron 4mg (Dexamethasone) 16:55:28 CDT CPT-J1030 Depo Medrol 40 mg (Methyl Prednisolone Acetate) 16:55: 28 CDT CPT-78605 Ankle Complete - Min 3V 15:58:50 CDT CPT-29581 Knee 3V 15:58:50 CDT CPT-84723 Hip comp min 2V 15:58:50 CDT CPT-J2270 Morphine Sulfate 10 mg 14:25:44 QUALITY PROJECT MANAGER CPT-J2550 Phenergan 12.5 mg (Promethazine) 14:25:44 QUALITY PROJECT MANAGER CPT-91990 Abx/Therapy Injection 14:25:44 QUALITY PROJECT MANAGER CPT-J2550 Phenergan 12.5 mg (Promethazine) 14:08:03 QUALITY PROJECT MANAGER CPT-J2270 Morphine Sulfate 10 mg 14:08:03 QUALITY PROJECT MANAGER CPT-49114 Bladder Scan 15:00:38 CDT CPT-TCMM Transitional Care Mgmt-Moderate 09:52:22 CDT CPT-J1030 Depo Medrol 40 mg (Methyl Prednisolone Acetate) 10:55: 18 CDT CPT-J1100 Decadron 4mg (Dexamethasone) 10:55:18 CDT CPT-63980 Abx/Therapy Injection 10:55:18 CDT CPT-J1030 Depo Medrol 40 mg (Methyl Prednisolone Acetate) 10:22: 32 CDT CPT-J1100 Decadron 4mg (Dexamethasone) 10:22:32 CDT CPT-22462 Postop F/U Visit 14:37:13 CDT CPT-21570 Ankle Complete - Min 3V 17:11:58 CDT CPT-17917 Foot comp min 3V 17:11:58 CDT CPT-19905 Bladder Scan 09:56:58 CDT CPT-99000 Postop F/U Visit 09:56:58 CDT CPT-57881 Cystoscopy 09:02:42 CDT CPT-75872 Bladder Scan 09:02:42 CDT CPT-69230 Abd single AP View 16:00:35 CDT CPT-45807 Administration single or combination vaccine inc oral 10 :15:43 CDT CPT-17558 Influenza split virus > age 3 10:15:43 CDT CPT-18680 Nail Avulsion 09:24:57 CDT CPT-OV Office Visit 11:15:41 CDT CPT-97996 Abx/Therapy Injection 10:51:30 CDT CPT-J3301 Kenalog 40 mg (Triamcinolone Acetonide) 10:25:12 CDT CPT-J1100 Decadron 4mg (Dexamethasone) 10:25:12 CDT CPT-40516 Anoscopy diagnostic 10:36:12 CDT CPT-OV Office Visit 15:34:31 CDT CPT-49070 Abx/Therapy Injection 08:21:15 QUALITY PROJECT MANAGER CPT-J1885 Toradol 60 mg (Ketorolac) 10:46:35 QUALITY PROJECT MANAGER CPT-OV Office Visit 19:51:16 QUALITY PROJECT MANAGER CPT-28867 Spec Collection and Handling Fee 14:34:18 QUALITY PROJECT MANAGER CPT-PV Prev. Care Visit 14:19:18 QUALITY PROJECT MANAGER CPT-60257 Postop F/U Visit 14:47:51 QUALITY PROJECT MANAGER CPT-97086 Postop F/U Visit 15:15:14 QUALITY PROJECT MANAGER CPT-71871 Postop F/U Visit 14:41:43 CDT CPT-52470 Postop F/U Visit 15:47:46 CDT CPT-OV Office Visit 15:27:23 CDT CPT-OV Office Visit 17:20:34 CDT CPT-72762 Abx/Therapy Injection 15:05:57 CDT CPT-J1100 Decadron 8mg (Dexamethasone) 14:44:57 CDT CPT-J1040 Depo Medrol 80 mg (Methyl Prednisolone Acetate) 14:44: 57 CDT CPT-JTINJ Joint Injection 10:17:37 CDT CPT-67452 Administration 2+ single or combination vaccines inc oral 13:01:46 QUALITY PROJECT MANAGER CPT-63248 Administration single or combination vaccine inc oral 13 :01:46 QUALITY PROJECT MANAGER CPT-38195 Pneumovax 13:01:46 QUALITY PROJECT MANAGER CPT-39902 Influenza split virus > age 3 13:01:46 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
--- OUTSIDE RECORDS SUMMARY | 2017-03-21 21:18 | XMS REPORT ---
Author Author [facility] [employer] [facility] Medical Staff Organization [facility] Address [address] [id number] Phone [phone] Summary purpose TRANSITION OF CARE AUTO GENERATION [...] tests and/or laboratory data RESULTS Radiology Results [id number] LUMBAR SPINE XRAY - 5V PACs Image DATE OF EXAM: Jan 24 2015 RAD 1050-LUMBAR SPINE XRAY-5 VIEW : RADIOLOGY REPORT DATE OF SERVICE:01/24/2015 HISTORY:Back pain, postoperative, history of surgery 01/09/2015, history of a lot of pain. LUMBAR SPINE X-RAY - 5 VIEWS 2225 HOURS Multiple images of the lumbar spine are evaluated. AP view demonstrates mild scoliotic curve to the right. There is evidence of fusion L4-L5, L5-S1 level. Posterior rods and screws are in place. Laminate position appears stable. Hypertrophic arthritic change throughout the lumbar spine is present, mild L1-L4. Thoracic spine demonstrates moderate osteoarthritis with multilevel disk degeneration. No acute pathology is seen. There is a grade 1 to 2 spondylolisthesis L5 on S1 level. Compared to the prior study dated 10/16/2012, interval surgical intervention is noted. IMPRESSION: 1. Stable appearing fusion, L4-L5, L5-S1 level. 2. No acute pathology. 3. Osteoarthritis. 4. Grade 1 to 2 spondylolisthesis, L5-S1 level. Juan Damian DO /kendal 01/26/2015 20:06:00 / 01/26/2015 22:06:22 cc:Dr. Jessica Rose - [facility] This document has been electronically Signed by: On: DATE OF EXAM: Jan 24 2015 RAD 1050-LUMBAR SPINE XRAY-5 VIEW : RADIOLOGY REPORT DATE OF SERVICE:01/24/2015 HISTORY:Back pain, postoperative, history of surgery 01/09/2015, history of a lot of pain. LUMBAR SPINE X-RAY - 5 VIEWS 2225 HOURS Multiple images of the lumbar spine are evaluated. AP view demonstrates mild scoliotic curve to the right. There is evidence of fusion L4-L5, L5-S1 level. Posterior rods and screws are in place. Laminate position appears stable. Hypertrophic arthritic change throughout the lumbar spine is present, mild L1-L4. Thoracic spine demonstrates moderate osteoarthritis with multilevel disk degeneration. No acute pathology is seen. There is a grade 1 to 2 spondylolisthesis L5 on S1 level. Compared to the prior study dated 10/16/2012, interval surgical intervention is noted. IMPRESSION: 1. Stable appearing fusion, L4-L5, L5-S1 level. 2. No acute pathology. 3. Osteoarthritis. 4. Grade 1 to 2 spondylolisthesis, L5-S1 level. Juan Damian DO /kendal 01/26/2015 20:06:00 / 01/26/2015 22:06:22 cc:Dr. Jessica Rose - [facility] family [facility] This document has been electronically Signed by: JUAN DAMIAN DO On: Jan 27 2015 10:27A Result Amended on 2015-01-27 at 10:27:37. Previous status was MO. History of procedures Procedure Code Code Type Description Date Performed Performing Physician [id number] CPT-4 X-RAY EXAM OF LOWER SPINE 01-24-2015 JESSICA ROSE J2405 CPT-4 ONDANSETRON HCL INJECTION 01-24-2015 JESSICA ROSE J2060 CPT-4 LORAZEPAM INJECTION 01-24-2015 JESSICA ROSE J1170 CPT-4 HYDROMORPHONE INJECTION 01-24-2015 JESSICA ROSE 24998 CPT-4 EMERGENCY DEPT VISIT 01-24-2015 REBEKA ACOSTA 40054 CPT-4 EMERGENCY DEPT VISIT 01-24-2015 REBEKA ACOSTA 18327 CPT-4 THER/PROPH/DIAG INJ, IV PUSH 01-24-2015 JESSICA ROSE 05964 CPT-4 TX/PRO/DX INJ NEW DRUG ADDON 01-24-2015 JESSICA ROSE Functional status Functional Status Finding Observation Time Abdomen Appearance obese :20 Abdomen soft : Bowel Sounds present : Urination normal :20 Quality sym/unlabored : Cough absent : Secretions no : Breath Sounds RUL clear :20 Breath Sounds RML clear :20 Breath Sounds RLL clear : Breath Sounds LESLIE clear : Breath Sounds LLL clear : Airway natural :20 Oxygen no : Temp >100.4 no : Temp <96.8 no : Chills with rigors no : HR > 90bpm no :20 Respirations > 20 no : Systolic <90 no : headache stiff neck no :20 Rapid Resp no :20 IV Site Location L AC :30 IV Type peripheral :30 IV Site Information discontinued : IV Site Acosta 20 :15 IV Site Appearance WNL :15 IV Site Color clear :15 IV Site Patent yes :15 Dressing Type occlusive :15 Nursing Note SL dc intact, discharge instructions reviewed with pt-verbalized understanding. VS obtained, dc in good condition per w/c :30 Vital signs Type Value Date Respiration Rate 20breaths per minute : Pulse 80beats per minute : Oxygen Saturation 98% :30 BP Systolic 126mmHg :30 BP Diastolic 70mmHg :30 Temperature 99.0F :14 Social history Type Value Smoking Status FORMER SMOKER Treatment Plan No treatment plan text is available for this visit. Hospital discharge instructions Dismissal Condition good Disposition on DC home DC Inst/Educ Give yes Med/Side Effects Rev yes PNE Vac 2014 Flu Vac 2014
--- OUTSIDE RECORDS SUMMARY | 2017-03-21 21:20 | XMS REPORT | Clinical Summary ---
Author Author Admin, MARGRET Organization [employer] Address Unknown Phone Unavailable Allergies, Adverse Reactions, Alerts Allergy Name Reaction Description Start Date Severity Status Provider VALENTIN Critical Active Rodrigo Montemayorl [employer] CHLORHEXIDINE GLUCONATE tongue and gums swollen Critical Active Hoa Kabaford RMA NORFLEX Rash Critical Active Rowenaina Farshadzell [employer] TRAZODONE HCL sees things Critical Active Dewayne [...] PhD Acute maxillary sinusitis Sinusitis 461.9 Resolved Yolnade Lindsay MD PhD Acute sinusitis, unspecified Pallor [...] MD Lumbago Cough 786.2 Active Jillina Tyrel [employer] Cough 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 Jillina Frazellilian ZAPATAN 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 Anemia 285.9 Active Gab Padron MD Anemia, unspecified Conjunctivitis 372.30 Active Jillnacho Sarah APRN Conjunctivitis, unspecified Sinusitis 473.9 Active Jillina Frazell [employer] Unspecified sinusitis (chronic) Nonspecific syndrome suggestive of viral illness 079.99 Active Jillina Siml [employer] Unspecified viral infection Laryngitis 464.00 Active Jillina Farshadzell [employer] Acute laryngitis without mention of obstruction Abdominal [...] Abdominal pain, generalized 789.07 Active Silvestrellina Siml [employer] Abdominal pain, generalized Back pain, thoracic region, left 724.1 Active Jillina Farshadzell [employer] Pain in thoracic spine Abdominal pain, left [...] PhD GERD ICD-530.81 Inactive Todd Callaway MD GERD ICD-530.81 Inactive Yolande Lindsay MD PhD [...] 1/2 tab daily for 2 days PREDNISONE 84773037558 No Longer Active Gab Padron MD Active ZOFRAN ODT 4 MG TBDP 1 po q6hr PRN Nausea ONDANSETRON 48817654192 Active Jillina Frazell [employer] Active IBUPROFEN 600 MG TAB 1 tablet by mouth every 6 hours for 7 days, then 1 tablet every 6 hours as needed. Take with food IBUPROFEN 30725389819 Active Jillina Frazell [employer] Active BACTRIM DS 800-160 MG TAB 1 tab by mouth twice daily TRIMETHOPRIM-SULFAMETHOXAZOLE 15683515731 No Longer Active Gab Padron MD Active ADVAIR DISKUS 250-50 MCG/DOSE AEPB 1 puff BID FLUTICASONE- SALMETEROL 86004968274 Active Rodrigo Sarah APRN Active LEVOTHYROXINE SODIUM 75 MCG TABS Take 1 tab daily LEVOTHYROXINE SODIUM 65435905005 No Longer Active Mariana Cuadra RMA Active SYNTHROID 88 MCG ORAL TABS Take one by mouth daily LEVOTHYROXINE SODIUM 44802917932 Active Tisha Lambert APRN Active CHERATUSSIN AC 100-10 MG/5ML SYRP 1 tsp by mouth every 4 hours as needed for cough GUAIFENESIN-CODEINE 84517522634 No Longer Active Gab Padron MD Active POLYTRIM 82340-0.1 UNIT/ML-% SOLN 1 gtt to affected eye q3h x 7 days POLYMYXIN B-TRIMETHOPRIM 95134289777 No Longer Active Gab aPdron MD Active FLUTICASONE PROPIONATE 50 MCG/ACT SUSP 1 to 2 sprays each nostril daily 04/21 FLUTICASONE PROPIONATE 90344417438 No Longer Active Gab Padron MD Active TRILEPTAL 600 MG TABS Take one 1 tablet in Am and 1 tablet at night OXCARBAZEPINE 15476914017 Active Gab Padron MD Active CEFDINIR 300 MG CAPS 1 po BID x 10 days CEFDINIR 36172376135 No Longer Active Rodrigo Sarah APRN Active CEFTIN 500 MG TAB 1 twice a day CEFUROXIME AXETIL 56544174078 No Longer Active Gab Padron MD Active AZITHROMYCIN 250 MG TABS 2 po qd x 1 day, then 1 po qd x 4 days AZITHROMYCIN 41877727036 No Longer Active Rodrigo Sarah APRN Active CLARITIN 10 MG TAB 1 tablet by mouth daily as needed for allergies LORATADINE 17436818629 Active Rodrigo Sarah APRN Active OXYCODONE HCL 5 MG ORAL CAPS 1 TAB PO Q HS OXYCODONE HCL 01014802433 No Longer Active Rodrigo Sarah APRN Active NIASPAN 500 MG ORAL CR-TABS 1 pill nightly x 1 week, then 2 pills nightly x 1 week, then 3 pills nightly x 1 week, then 4 pills nightly NIACIN (ANTIHYPERLIPIDEMIC) 80340387467 No Longer Active Rodrigo Sarah APRN Active NIACIN 500 MG TABS 1 pill by mouth nightly x 1 week, then 2 pills x 1 week, then 3 pills x 1 week, then 4 pills nightly - take after evening meal, with applesauce or an apple NIACIN 33911697993 No Longer Active Yolande Lindsay MD PhD Active FISH OIL 1000 MG CAPS 3 pills daily OMEGA-3 FATTY ACIDS 60104948359 Active Yolande Lindsay MD PhD Active TRIAMCINOLONE ACETONIDE 0.1 % CREA apply bid sparingly to rash TRIAMCINOLONE ACETONIDE 42499638152 Active Yolande Lindsay MD PhD Active FUROSEMIDE 20 MG TAB 1 tablet by mouth daily FUROSEMIDE 21392240274 Active Tisha Lambert APRN Active LISINOPRIL 20 MG ORAL TABS 1 tab by mouth daily LISINOPRIL 33235846531 Active Tisha Lambert APRN Active FUROSEMIDE 20 MG TABS 1 pill by mouth daily, for edema FUROSEMIDE 81061489116 No Longer Active Yolande Lindsay MD PhD Active ATORVASTATIN CALCIUM 10 MG TABS 1 pill by mouth daily, for cholesterol 09/06 ATORVASTATIN CALCIUM 23064720976 Active Tisha Lambert APRN Active CALCIUM 600+D PLUS MINERALS 600-400 MG-UNIT ORAL CHEW 1 tab by mouth daily CALCIUM CARBONATE-VIT D-MIN 35600970708 No Longer Active Yolande Lindsay MD PhD Active CYCLOBENZAPRINE HCL 10 MG TABS 1 tablet by mouth three times daily as needed for muscle spasm/pain CYCLOBENZAPRINE HCL 10370360636 Active Yolande Lindsay MD PhD Active ONDANSETRON 4 MG TBDP 1 q4h PRN nausea ONDANSETRON 21646640421 Active Yolande Lindsay MD PhD Active ADULT ASPIRIN EC LOW STRENGTH 81 MG TBEC Take 1 tablet by mouth daily 2014 ASPIRIN 84741415041 No Longer Active Yolande Lindsay MD PhD Active ZOFRAN ODT 4 MG TBDP 1 pill dissolved by mouth every 4 hours if needed for nausea ONDANSETRON 96384054810 No Longer Active Yolande Lindsay MD PhD Active CEFTIN 500 MG TAB 1 twice a day CEFUROXIME AXETIL 18141449326 No Longer Active Yolande Lindsay MD PhD Active ALBUTEROL SULFATE 0.083 % NEBU SOLN one vial per nebulizer every 4-6 hours as needed ALBUTEROL SULFATE 62034564509 No Longer Active Alexis Ordaz MD Active DOXYCYCLINE HYCLATE 100 MG CAP 1 cap by mouth twice daily DOXYCYCLINE HYCLATE 99252223311 No Longer Active Yolande Lindsay MD PhD Active CYCLOBENZAPRINE HCL 10 MG TABS 1/2 - 1 tab by mouth three times daily if needed for spasms/pain CYCLOBENZAPRINE HCL 74708736061 No Longer Active Yolande Lindsay MD PhD Active AZITHROMYCIN 250 MG TABS 2 pills on day 1, then 1 pill daily x 4 days AZITHROMYCIN 83637922966 No Longer Active Yolande Lindsay MD PhD Active XOPENEX 1.25 MG/3ML NEBU 1 neb every 4 hours if needed for cough/congestion LEVALBUTEROL HCL 65286136040 No Longer Active Yolande Lindsay MD PhD Active DOXYCYCLINE HYCLATE 100 MG TAB 1 tab twice a day for 14 days 2013 DOXYCYCLINE HYCLATE 27600196373 No Longer Active Yolande Lindsay MD PhD Active PREVACID 30 MG CPDR Take 1 tablet by mouth daily-PRN LANSOPRAZOLE 16230699824 No Longer Active Yolande Lindsay MD PhD Active PA VITAMIN D-3 2000 UNIT CAPS 1 CAP PO DAILY CHOLECALCIFEROL 55853936196 No Longer Active Yolande Lindsay MD PhD Active CEFDINIR 300 MG CAPS by mouth twice a day CEFDINIR 13099421966 No Longer Active Gab Padron MD Active TOPAMAX 50 MG TABS 1 PO twice daily TOPIRAMATE 30074498640 Active Yolande Lindsay MD PhD Active AZITHROMYCIN 250 MG TABS 2 po qd x 1 day, then 1 po qd x 4 days AZITHROMYCIN 76784367350 No Longer Active Yolande Lindsay MD PhD Active DICLOFENAC SODIUM 75 MG TBEC 1 tablet by q 12 hours PRN headaches DICLOFENAC SODIUM 12636804392 No Longer Active Yolande Lindsay MD PhD Active FLONASE 50 MCG/ACT SUSP 1 spray each nostril am and hs FLUTICASONE PROPIONATE 13231087839 No Longer Active Todd Callaway MD Active ANUSOL-HC 25 MG SUPPOSITORY 1 rectally twice a day as needed for hemorrhoids HYDROCORTISONE JAYDEN (RECTAL) 43701660016 No Longer Active Yolande Lindsay MD PhD Active ANUSOL-HC 25 MG SUPPOSITORY 1 suppository rectally each evening as needed for anal fissure HYDROCORTISONE JAYDEN (RECTAL) 65100722434 No Longer Active LONNIE Iglesias Active VALIUM 5 MG TAB 1 po 30 minutes prior to your MRI DIAZEPAM 47041611430 No Longer Active LONNIE Iglesias Active METHOCARBAMOL 750 MG TABS 1 PO QID PRN METHOCARBAMOL 81650643604 No Longer Active Daphne Wetzel APRN Active NITROSTAT 0.4 MG SUBL as directed NITROGLYCERIN 48002870871 No Longer Active Jillina Frazell [employer]ER Active ROBAXIN-750 750 MG TABS 2 four times a day for 3 days as needed for muscle spasm, then 1 four times a day as needed METHOCARBAMOL 01422279102 No Longer Active Rodrigo Sarah APRN Active HYDROCODONE-ACETAMINOPHEN 5-325 MG TABS 1 q 4-6 hrs prn HYDROCODONE-ACETAMINOPHEN 52696389871 No Longer Active Silvestrellina Tyrel ZAPATAN Active VERAPAMIL HCL CR 180 MG CR-TABS TAKE 1 TAB DAILY VERAPAMIL HCL 53292185489 No Longer Active Yolande Lindsay MD PhD Active BACTRIM DS 800-160 MG TAB 1 tab by mouth twice daily TRIMETHOPRIM-SULFAMETHOXAZOLE 37613895270 No Longer Active Yolande Lindsay MD PhD Active NEXIUM 40 MG PACK 1 by mouth daily ESOMEPRAZOLE MAGNESIUM 33042087521 No Longer Active Des Hines MD Active EPIPEN 2-CHARLETTE 0.3 MG/0.3ML OMARI as need for allergic reaction EPINEPHRINE 74361906474 Active Yolande Lindsay MD PhD Active NEXIUM 40 MG CPDR 1 PO Q D DAY ESOMEPRAZOLE MAGNESIUM 45319927241 No Longer Active Sadia Perry RN Active NEXIUM 40 MG PACK 1 by mouth daily NEXIUM 40 MG PACK ESOMEPRAZOLE MAGNESIUM Inactive VERAPAMIL HCL CR 180 MG CR-TABS TAKE 1 TAB DAILY VERAPAMIL HCL CR 180 MG CR-TABS VERAPAMIL HCL Inactive HYDROCODONE-ACETAMINOPHEN 5-325 MG TABS 1 q 4-6 hrs prn HYDROCODONE-ACETAMINOPHEN 5-325 MG TABS 868862 HYDROCODONE-ACETAMINOPHEN Inactive ROBAXIN-750 750 MG TABS 2 four times a day for 3 days as needed for muscle spasm, then 1 four times a day as needed ROBAXIN-750 750 MG TABS 991588 METHOCARBAMOL Inactive NITROSTAT 0.4 MG SUBL as directed NITROSTAT 0.4 MG SUBL 189538 NITROGLYCERIN Inactive METHOCARBAMOL 750 MG TABS 1 PO QID PRN METHOCARBAMOL 750 MG TABS 235340 METHOCARBAMOL Inactive VALIUM 5 MG TAB 1 po 30 minutes prior to your MRI VALIUM 5 MG TAB 747643 DIAZEPAM Inactive ANUSOL-HC 25 MG SUPPOSITORY 1 suppository rectally each evening as needed for anal fissure ANUSOL-HC 25 MG SUPPOSITORY 4810794 HYDROCORTISONE JAYDEN (RECTAL) Inactive ANUSOL-HC 25 MG SUPPOSITORY 1 rectally twice a day as needed for hemorrhoids ANUSOL-HC 25 MG SUPPOSITORY 4736286 HYDROCORTISONE JAYDEN (RECTAL) Inactive FLONASE 50 MCG/ACT SUSP 1 spray each nostril am and hs FLONASE 50 MCG/ACT SUSP FLUTICASONE PROPIONATE Inactive DICLOFENAC SODIUM 75 MG TBEC 1 tablet by q 12 hours PRN headaches DICLOFENAC SODIUM 75 MG TBEC 968019 DICLOFENAC SODIUM Inactive PA VITAMIN D-3 2000 UNIT CAPS 1 CAP PO DAILY PA VITAMIN D-3 2000 UNIT CAPS CHOLECALCIFEROL Inactive PREVACID 30 MG CPDR Take 1 tablet by mouth daily-PRN PREVACID 30 MG CPDR 861768 LANSOPRAZOLE Inactive DOXYCYCLINE HYCLATE 100 MG TAB 1 tab twice a day for 14 days 2013 DOXYCYCLINE HYCLATE 100 MG TAB 4282707 DOXYCYCLINE HYCLATE Inactive XOPENEX 1.25 MG/3ML NEBU 1 neb every 4 hours if needed for cough/congestion XOPENEX 1.25 MG/3ML NEBU 226305 LEVALBUTEROL HCL Inactive CYCLOBENZAPRINE HCL 10 MG TABS 1/2 - 1 tab by mouth three times daily if needed for spasms/pain CYCLOBENZAPRINE HCL 10 MG TABS 411859 CYCLOBENZAPRINE HCL Inactive ALBUTEROL SULFATE 0.083 % NEBU SOLN one vial per nebulizer every 4-6 hours as needed ALBUTEROL SULFATE 0.083 % [facility] SOLN 731468 ALBUTEROL SULFATE Inactive CEFTIN 500 MG TAB 1 twice a day CEFTIN 500 MG TAB 012732 CEFUROXIME AXETIL Inactive ZOFRAN ODT 4 MG TBDP 1 pill dissolved by mouth every 4 hours if needed for nausea ZOFRAN ODT 4 MG TBDP 814856 ONDANSETRON Inactive ADULT ASPIRIN EC LOW STRENGTH 81 MG TBEC Take 1 tablet by mouth daily 2014 ADULT ASPIRIN EC LOW STRENGTH 81 MG TBEC 801695 ASPIRIN Inactive CALCIUM 600+D PLUS MINERALS 600-400 [...] or an apple NIACIN 500 MG TABS 496297 NIACIN Inactive NIASPAN 500 MG ORAL CR-TABS 1 pill nightly x 1 week, then 2 pills nightly x 1 week, then 3 pills nightly x 1 week, then 4 pills nightly NIASPAN 500 MG ORAL CR-TABS NIACIN (ANTIHYPERLIPIDEMIC) Inactive OXYCODONE HCL 5 MG ORAL CAPS 1 TAB PO Q HS OXYCODONE HCL 5 MG ORAL CAPS 7257488 OXYCODONE HCL Inactive FLUTICASONE PROPIONATE 50 MCG/ACT SUSP 1 to 2 sprays each nostril daily 04/21 FLUTICASONE PROPIONATE 50 MCG/ACT SUSP 0718971 FLUTICASONE PROPIONATE Inactive POLYTRIM 89917-0.1 UNIT/ML-% SOLN 1 gtt to affected eye q3h x 7 days POLYTRIM 85708-3.1 UNIT/ML-% SOLN 637804 POLYMYXIN B- TRIMETHOPRIM Inactive CHERATUSSIN AC 100-10 MG/5ML SYRP 1 tsp by mouth every 4 hours as needed for cough CHERATUSSIN AC 100-10 MG/5ML SYRP 489910 GUAIFENESIN-CODEINE Inactive LEVOTHYROXINE SODIUM 75 MCG TABS Take 1 tab daily LEVOTHYROXINE SODIUM 75 MCG TABS 198045 LEVOTHYROXINE SODIUM Inactive BACTRIM DS 800-160 MG TAB 1 tab by mouth twice daily BACTRIM DS 800-160 MG TAB 19820606 TRIMETHOPRIM-SULFAMETHOXAZOLE Inactive AZITHROMYCIN 250 MG TABS 2 po qd x 1 day, then 1 po qd x 4 days AZITHROMYCIN 250 MG TABS 8641803 AZITHROMYCIN Inactive CEFDINIR 300 MG CAPS by mouth twice a day CEFDINIR 300 MG CAPS 20020708 CEFDINIR Inactive AZITHROMYCIN 250 MG TABS 2 pills on day 1, then 1 pill daily x 4 days AZITHROMYCIN 250 MG TABS 9493646 AZITHROMYCIN Inactive DOXYCYCLINE HYCLATE 100 MG CAP 1 cap by mouth twice daily DOXYCYCLINE HYCLATE 100 MG CAP 9388712 DOXYCYCLINE HYCLATE Inactive FUROSEMIDE 20 MG TABS 1 pill by mouth daily, for edema FUROSEMIDE 20 MG TABS 402006 FUROSEMIDE Inactive AZITHROMYCIN 250 MG TABS 2 po qd x 1 day, then 1 po qd x 4 days AZITHROMYCIN 250 MG TABS 0029578 AZITHROMYCIN Inactive CEFTIN 500 MG TAB 1 twice a day CEFTIN 500 MG TAB 515702 CEFUROXIME AXETIL Inactive CEFDINIR 300 MG CAPS 1 po BID x 10 days CEFDINIR 300 MG CAPS 20020708 CEFDINIR Inactive BACTRIM DS 800-160 MG TAB 1 tab by mouth twice daily BACTRIM DS 800-160 MG TAB 691784 TRIMETHOPRIM-SULFAMETHOXAZOLE Inactive PREDNISONE 20 MG TAB 2 tabs daily for 3 days, 1 tab daily for 3 days, 1/2 tab daily for 2 days PREDNISONE 20 MG TAB 875795 PREDNISONE Inactive Immunizations Vaccine Administration Date Value Standard Description Seasonal influenza vaccine, injectable, containing preservative, for > 3 years old (Afluria, FluLaval, Fluzone, Fluvirin, Fluarix, Agriflu(>=18 yo)) Fluzone (>3 yrs.) [[id number]] Influenza, seasonal, injectable influenza immunization (Flu Vax) has been administered Influenza - Unspecified Formulation [CVX88] influenza virus vaccine, unspecified formulation Seasonal influenza vaccine, injectable, containing preservative, for > 3 years old (Afluria, FluLaval, Fluzone, Fluvirin, Fluarix, Agriflu(>=18 yo)) Fluzone (>3 yrs.) [[id number]] Influenza, seasonal, injectable pneumococcal immunization administered Pneumovax 23 [CVX33] pneumococcal polysaccharide vaccine, 23 valent dT (Diphtheria and Tetanus) booster given given Td(adult) unspecified formulation Boostrix (Tetanus toxoid, reduced diphtheria toxoid and acellular pertussis vaccine, adsorbed), booster Boostrix [[id number]] tetanus toxoid, reduced diphtheria toxoid, and acellular [...] Panel - Chemistry sodium, serum 142 mmol/L 597-769 7240/06/30 potassium, serum 4.4 mmol/L 3.5-5.2 chloride, serum [...] Rate - Chemistry sodium, serum 139 mmol/L 880-151 3690/03/24 carbon dioxide, venous blood 22.4 mmol/L 21.0-32.0 [...] ... - Chemistry sodium, serum 143 mmol/L 620-780 7476/05/02 carbon dioxide, venous blood 25.6 mmol/L 21.0-32.0 [...] PANEL - Chemistry cholesterol, serum 166 mg/dL 716-028 7693/12/06 triglyceride, serum, fasting 86 mg/dL 30-200 HDL cholesterol, serum 62 mg/dL 32-96 LDL cholesterol, serum 87 mg/dL 0-130 aspartate aminotransferase (SGOT), serum 18 U/L 15-37 alanine aminotransferase (SGPT), serum 29 U/L 12-78 bilirubin, serum, total 0.20 mg/dL 0.00-1.00 Lab Report: TIERA INFLUENZA A/B - Toxicology rapid flu test Negative Negative;Positive Lab Report: Thyroid Stimulating Hormone (L), Free Thyroxine (L) - Chemistry TSH 1.08 m[iU]/mL 0.36-3.74 thyroxine, serum, free 0.75 ng/dL 0.76-1.46 Lab Report: UADIP W/MICRO, AUTO, CBC W/DIFF, Comp. Metabolic Panel - Chemistry protein, total urine random Negative mg/dL Negative RBC, urine, dipstick Negative Negative sodium, serum 142 mmol/L 684-896 1278/07/18 carbon dioxide, venous blood 27.8 mmol/L 21.0-32.0 [...] negative Encounters Code Encounter Date Provider Facility CPT-45132 Level 3 Est. Patient 20:13:34 EMR TRAINER Jared Og MD [facility] CPT-27216 Level 4 Est. Patient 16:31:27 CDT Gab Padron MD [facility] CPT-56384 Level 2 Est. Patient 12:23:38 CDT Jared Og MD [facility] CPT-22431 Level 3 Est. Patient 11:01:51 CDT Gab Padron MD [facility] CPT-13670 Level 3 Est. Patient 15:27:02 CDT Jared Og MD [facility] CPT-51236 Level 4 Est. Patient 09:25:27 CDT Gab Padron MD [facility] CPT-07236 Level 3 Est. Patient 10:29:41 CDT Silvestrenacho Sarah [facility] CPT-93429 Level 4 Est. Patient 17:51:05 CDT Gab Padron MD [facility] CPT-41289 Level 3 Est. Patient 14:18:08 CDT Gab Padron MD [facility] CPT-81384 Level 4 Est. Patient 10:18:54 CDT Gab Padron MD [facility] CPT-31226 Level 3 Est. Patient 11:30:07 CDT Rodrigo Sarah [facility] CPT-33561 Level 4 Est. Patient 21:02:30 EMR TRAINER Gab Padron MD [facility] CPT-44188 Level 3 Est. Patient 11:02:19 EMR TRAINER Gab Padron MD [facility] CPT-88302 Level 4 Est. Patient 22:24:31 EMR TRAINER Gab Padron MD [facility] CPT-97765 Level 3 Est. Patient 18:33:46 EMR TRAINER Gab Padron MD [facility]-36825 Level 3 Est. Patient 16:19:11 CDT Yolande Lindsay MD [facility]-55810 Level 3 Est. Patient 18:59:14 CDT Yolande Lindsay MD [facility]-20207 Level 4 Est. Patient 21:29:26 CDT Yolande Lindsay MD [facility]-79643 Level 3 Est. Patient 07:37:45 CDT Yolande Lindsay MD [facility]-43551 Level 3 Est. Patient 17:03:46 CDT Yolande Lindsay MD [facility]-78752 Level 4 Est. Patient 20:02:13 EMR TRAINER Yolande Lindsay MD [facility]-40682 Level 3 Est. Patient 16:02:07 EMR TRAINER Alexis Ordaz MD [facility]-13373 Level 3 Est. Patient 12:41:24 EMR TRAINER Yolande Lindsay MD [facility]-93020 Level 3 Est. Patient 15:41:20 EMR TRAINER Yolande Lindsay MD [facility]-63407 Level 3 Est. Patient 13:20:02 EMR TRAINER Yolande Lindsay MD [facility]-85794 Level 3 Est. Patient 15:00:38 CDT Jared Og MD [facility]-00982 Level 3 Est. Patient 10:22:32 CDT Yolande Lindsay MD [facility]-91811 Level 3 Est. Patient 17:12:58 CDT Yolande Lindsay MD [facility]-81244 Level 4 Est. Patient 13:30:58 CDT Yolande Lindsay MD [facility] CPT-80041 Level 4 New Patient 09:02:42 CDT Jared Og MD [facility]-23397 Level 3 Est. Patient 08:19:07 CDT Yolande Lindsay MD [facility]-51831 Level 3 Est. Patient 12:00:13 EMR TRAINER Gab Padron MD [facility]-48175 Level 3 Est. Patient 16:15:23 EMR TRAINER Yolande Lindsay MD PhD [facility]-43802 Level 2 Est. Patient 19:47:15 CDT Yolande Lindsay MD [facility]-80239 Level 3 Est. Patient 21:38:31 CDT Yolande Lindsay MD [facility]-90193 Level 3 Est. Patient 10:25:12 CDT Adiel PERAZA [facility]-17922 Level 4 Est. Patient 10:51:58 CDT Yolande Lindsay MD [facility]-20244 Level 3 Est. Patient 14:04:55 EMR TRAINER Rodrigo Sarah [facility]-53319 Level 3 Est. Patient 10:46:35 EMR TRAINER Rodrigo Sarah [facility]-04151 Level 3 Est. Patient 14:24:37 EMR TRAINER Yolande Lindsay MD [facility]-28891 Level 3 Est. Patient 17:41:58 EMR TRAINER Yolande Lindsay MD [facility]-69331 Level 2 Est. Patient 22:01:41 EMR TRAINER Rodrigo Sarah [facility]-82472 Level 2 Est. Patient 22:01:11 EMR TRAINER Rodrigo Sarah [facility]-93705 Level 3 Est. Patient 10:12:29 EMR TRAINER Rodrigo Sarah APRN [facility] CPT-97789 Level 3 Est. Patient 11:05:44 CDT Alexis Ordaz MD [facility] CPT-32086 Level 3 Est. Patient 14:57:20 CDT Yolande Lindsay MD [facility] CPT-10662 Level 3 Est. Patient 14:40:57 CDT Yolande Lindsay MD [facility] CPT-56417 Level 3 Est. Patient 20:55:40 CDT Yolande Lindsay MD [facility] CPT-63094 Level 3 Est. Patient 12:42:38 EMR TRAINER Yolande Lindsay MD [facility] CPT-91515 Level 3 Est. Patient 11:54:49 EMR TRAINER Des Hines MD [facility] CPT-26791 Level 3 Est. Patient 17:06:38 CDT Dewayne PERAZA [facility] Procedures Code Procedure Name Date Entry Date Standard Description CPT-74671 Venipuncture Draw Fee 08:37:59 EMR TRAINER CPT-28238 Liver Profile - LAB USE ONLY 08:37:59 EMR TRAINER CPT-53059 Lipid - LAB USE ONLY 08:37:58 EMR TRAINER CPT-00083 First Vx - Ix admin via ID IM or jet injects without counseling by physician 11:52:31 CDT CPT-32571 Fluzone Preservative Free Intramuscular Suspension 11:52 :31 CDT CPT-80501 Foot, left, comp min 3V - XRAY USE ONLY 09:24:54 CDT CPT-07422 Abd single AP View - XRAY USE ONLY 11:16:17 CDT CPT-10176 T spine AP/ Lat - XRAY USE ONLY 09:34:21 CDT CPT-96345 Chest 2V Frontal and Lat - XRAY USE ONLY 10:48:51 CDT CPT-74601 LS spine comp w obliq 13:28:00 EMR TRAINER CPT-J1040 Depo Medrol 80 mg (Methyl Prednisolone Acetate) 10:51: 28 EMR TRAINER CPT-J1100 Decadron 8mg (Dexamethasone) 10:51:28 EMR TRAINER CPT-67910 Abx/Therapy Injection 10:51:28 EMR TRAINER CPT-J1100 Decadron 8mg (Dexamethasone) 21:02:30 EMR TRAINER CPT-J1040 Depo Medrol 80 mg (Methyl Prednisolone Acetate) 21:02: 30 EMR TRAINER [id number] Event Monitor - MC Transmission 09:12:32 CDT 08/06 [id number] Event Monitor - MC review and interp 09:12:32 CDT [id number] Event Monitor - MC recording 09:12:32 CDT CPT-38355 EKG Trac and Interp 16:50:22 CDT CPT-J1030 Depo Medrol 40 mg (Methyl Prednisolone Acetate) 17:05: 54 CDT CPT-J1100 Decadron 4mg (Dexamethasone) 17:05:54 CDT CPT-93026 Abx/Therapy Injection 17:05:54 CDT CPT-J1100 Decadron 4mg (Dexamethasone) 16:55:28 CDT CPT-J1030 Depo Medrol 40 mg (Methyl Prednisolone Acetate) 16:55: 28 CDT CPT-48773 Ankle Complete - Min 3V 15:58:50 CDT CPT-60079 Knee 3V 15:58:50 CDT CPT-50718 Hip comp min 2V 15:58:50 CDT CPT-J2270 Morphine Sulfate 10 mg 14:25:44 EMR TRAINER CPT-J2550 Phenergan 12.5 mg (Promethazine) 14:25:44 EMR TRAINER CPT-00394 Abx/Therapy Injection 14:25:44 EMR TRAINER CPT-J2550 Phenergan 12.5 mg (Promethazine) 14:08:03 EMR TRAINER CPT-J2270 Morphine Sulfate 10 mg 14:08:03 EMR TRAINER CPT-76343 Bladder Scan 15:00:38 CDT CPT-TCMM Transitional Care Mgmt-Moderate 09:52:22 CDT CPT-J1030 Depo Medrol 40 mg (Methyl Prednisolone Acetate) 10:55: 18 CDT CPT-J1100 Decadron 4mg (Dexamethasone) 10:55:18 CDT CPT-12218 Abx/Therapy Injection 10:55:18 CDT CPT-J1030 Depo Medrol 40 mg (Methyl Prednisolone Acetate) 10:22: 32 CDT CPT-J1100 Decadron 4mg (Dexamethasone) 10:22:32 CDT CPT-54755 Postop F/U Visit 14:37:13 CDT CPT-07970 Ankle Complete - Min 3V 17:11:58 CDT CPT-86640 Foot comp min 3V 17:11:58 CDT CPT-15080 Bladder Scan 09:56:58 CDT CPT-43732 Postop F/U Visit 09:56:58 CDT CPT-88203 Cystoscopy 09:02:42 CDT CPT-37810 Bladder Scan 09:02:42 CDT CPT-91478 Abd single AP View 16:00:35 CDT CPT-82480 Administration single or combination vaccine inc oral 10 :15:43 CDT CPT-15009 Influenza split virus > age 3 10:15:43 CDT CPT-74957 Nail Avulsion 09:24:57 CDT CPT-OV Office Visit 11:15:41 CDT CPT-31722 Abx/Therapy Injection 10:51:30 CDT CPT-J3301 Kenalog 40 mg (Triamcinolone Acetonide) 10:25:12 CDT CPT-J1100 Decadron 4mg (Dexamethasone) 10:25:12 CDT CPT-06797 Anoscopy diagnostic 10:36:12 CDT CPT-OV Office Visit 15:34:31 CDT CPT-89109 Abx/Therapy Injection 08:21:15 EMR TRAINER CPT-J1885 Toradol 60 mg (Ketorolac) 10:46:35 EMR TRAINER CPT-OV Office Visit 19:51:16 EMR TRAINER CPT-11549 Spec Collection and Handling Fee 14:34:18 EMR TRAINER CPT-PV Prev. Care Visit 14:19:18 EMR TRAINER CPT-55779 Postop F/U Visit 14:47:51 EMR TRAINER CPT-84327 Postop F/U Visit 15:15:14 EMR TRAINER CPT-02052 Postop F/U Visit 14:41:43 CDT CPT-34017 Postop F/U Visit 15:47:46 CDT CPT-OV Office Visit 15:27:23 CDT CPT-OV Office Visit 17:20:34 CDT CPT-25921 Abx/Therapy Injection 15:05:57 CDT CPT-J1100 Decadron 8mg (Dexamethasone) 14:44:57 CDT CPT-J1040 Depo Medrol 80 mg (Methyl Prednisolone Acetate) 14:44: 57 CDT CPT-JTINJ Joint Injection 10:17:37 CDT CPT-27129 Administration 2+ single or combination vaccines inc oral 13:01:46 EMR TRAINER CPT-91819 Administration single or combination vaccine inc oral 13 :01:46 EMR TRAINER CPT-10718 Pneumovax 13:01:46 EMR TRAINER CPT-57435 Influenza split virus > age 3 13:01:46 EMR TRAINER CPT-71300 Administration single or combination vaccine inc oral 08 :56:49 CDT CPT-68537 Tdap 08:56:49 CDT
--- OUTSIDE RECORDS SUMMARY | 2017-03-21 21:20 | XMS REPORT ---
Author Author [facility] Medical Staff Organization [facility] Address [address] [place] [id number] Phone [phone] Summary purpose TRANSITION OF CARE AUTO GENERATION [...] Time Abdomen Appearance obese :20 Abdomen soft :20 Bowel Sounds present :20 Urination normal :20 Quality sym/unlabored :20 Cough absent :20 Secretions no :20 Breath Sounds RUL clear :20 Breath Sounds RML clear [id number]:20 Breath Sounds RLL clear :20 Breath Sounds LESLIE clear :20 Breath Sounds LLL clear :20 Airway natural : Oxygen no : Temp >100.4 no : Temp <96.8 no : Chills with rigors no : HR > 90bpm no : Respirations > 20 no : Systolic <90 no : headache stiff neck no : Rapid Resp no : IV Site Location L AC :30 IV Type peripheral :30 IV Site Information discontinued : IV Site [place] 20 :15 IV Site Appearance WNL :15 IV Site Color clear : IV Site Patent yes :15 Dressing Type occlusive :15 Nursing Note SL dc intact, discharge instructions reviewed with pt-verbalized understanding. VS obtained, dc in good condition per w/c :30 Vital signs Type Value Date Respiration Rate 20breaths per minute : Pulse 80beats per minute : Oxygen Saturation 98% : BP Systolic 126mmHg :30 BP Diastolic 70mmHg :30 Temperature 99.0F :14 Social history Type Value Smoking Status FORMER SMOKER Treatment Plan No treatment plan text is available for this visit. Hospital discharge instructions Dismissal Condition good Disposition on DC home DC Inst/Educ Give yes Med/Side Effects Rev yes PNE Vac 2014 Flu Vac 2014
--- OUTSIDE RECORDS SUMMARY | 2017-03-21 21:22 | XMS REPORT | Clinical Summary ---
Author Author Admin, E Organization [facility] Address Unknown Phone Unavailable Allergies, Adverse Reactions, Alerts Allergy Name Reaction Description Start Date Severity Status Provider VALENTIN Critical Active Rodrigo Fracharlottel SMALL ANIMAL CARETAKER CHLORHEXIDINE GLUCONATE tongue and gums swollen Critical Active Hoa Otto RMA NORFLEX Rash Critical Active Silvestrellina Frazell SMALL ANIMAL CARETAKER TRAZODONE HCL sees things Critical Active Dewayne [...] Active Todd Callaway MD Dysphagia, pharyngoesophageal phase FOOT PAIN, RIGHT ICD-729.5 Inactive Yolande Lindsay [...] Instructions Start Date Stop Date Generic Name [facility] Status Provider Patient Instruction ADVAIR DISKUS 250-50 MCG/DOSE AEPB 1 puff BID FLUTICASONE-SALMETEROL 51197695133 No Longer Active Todd Callaway MD Active ONDANSETRON 4 MG TBDP 1 q4h PRN nausea ONDANSETRON 58186480136 No Longer Active LONNIE Iglesias Active FISH OIL 1000 MG CAPS 3 pills daily OMEGA-3 FATTY ACIDS 90228207747 No Longer Active LONNIE Iglesias Active CETIRIZINE HCL 10 MG ORAL TABS 1 po qd PRN Allergies CETIRIZINE HCL 40555730994 Active Gab Padron MD Active CLARITIN 10 MG TAB 1 tablet by mouth daily as needed for allergies LORATADINE 53073320629 No Longer Active Gab Padron MD Active PREDNISONE 20 MG TAB take 3 tabs daily for 3 days, 2 tabs daily for 3 days, 1 tab daily for 3 days, 1/2 tab daily for 3 days PREDNISONE 69361607878 No Longer Active Tisha Lambert APRN Active TRAMADOL HCL 50 MG TABS 1 tab po every 6 hrs prn pain TRAMADOL HCL 42221799263 Active Gab Padron MD Active PREDNISONE 20 MG TAB 2 tabs daily for 3 days, 1 tab daily for 3 days, 1/2 tab daily for 2 days PREDNISONE 83679973814 No Longer Active Gab Padron MD Active ZOFRAN ODT 4 MG TBDP 1 po q6hr PRN Nausea ONDANSETRON 60459190073 Active Gab Padron MD Active IBUPROFEN 600 MG TAB 1 tablet by mouth every 6 hours for 7 days, then 1 tablet every 6 hours as needed. Take with food IBUPROFEN 89035164102 Active Rodrigo Sarah APRN Active BACTRIM DS 800-160 MG TAB 1 tab by mouth twice daily TRIMETHOPRIM-SULFAMETHOXAZOLE 00653938303 No Longer Active Gab Padron MD Active LEVOTHYROXINE SODIUM 75 MCG TABS Take 1 tab daily LEVOTHYROXINE SODIUM 64278940695 No Longer Active Mariana FLEMING Active SYNTHROID 88 MCG ORAL TABS Take one by mouth daily LEVOTHYROXINE SODIUM 56311301240 Active Gab Padron MD Active CHERATUSSIN AC 100-10 MG/5ML SYRP 1 tsp by mouth every 4 hours as needed for cough GUAIFENESIN-CODEINE 30132097526 No Longer Active Gab Padron MD Active POLYTRIM 39713-3.1 UNIT/ML-% SOLN 1 gtt to affected eye q3h x 7 days POLYMYXIN B-TRIMETHOPRIM 41710949352 No Longer Active Gab Padron MD Active FLUTICASONE PROPIONATE 50 MCG/ACT SUSP 1 to 2 sprays each nostril daily 04/21 FLUTICASONE PROPIONATE 41094436568 No Longer Active Gab Padron MD Active TRILEPTAL 600 MG TABS Take one 1 tablet in Am and 1 tablet at night OXCARBAZEPINE 25858635377 Active Gab Padron MD Active CEFDINIR 300 MG CAPS 1 po BID x 10 days CEFDINIR 00012411167 No Longer Active Rodrigo Sarah APRN Active CEFTIN 500 MG TAB 1 twice a day CEFUROXIME AXETIL 85012657719 No Longer Active Gab Padron MD Active AZITHROMYCIN 250 MG TABS 2 po qd x 1 day, then 1 po qd x 4 days AZITHROMYCIN 92727753720 No Longer Active Rodrigo Sarah APRN Active OXYCODONE HCL 5 MG ORAL CAPS 1 TAB PO Q HS OXYCODONE HCL 83954264091 No Longer Active Rodrigo Sarah APRN Active NIASPAN 500 MG ORAL CR-TABS 1 pill nightly x 1 week, then 2 pills nightly x 1 week, then 3 pills nightly x 1 week, then 4 pills nightly NIACIN (ANTIHYPERLIPIDEMIC) 48819355033 No Longer Active Rodrigo Farshadhossein GAUTAM Active NIACIN 500 MG TABS 1 pill by mouth nightly x 1 week, then 2 pills x 1 week, then 3 pills x 1 week, then 4 pills nightly - take after evening meal, with applesauce or an apple NIACIN 30086166733 No Longer Active Yolande Lindsay MD PhD Active TRIAMCINOLONE ACETONIDE 0.1 % CREA apply bid sparingly to rash TRIAMCINOLONE ACETONIDE 75690877656 Active Yolande Lindsay MD PhD Active FUROSEMIDE 20 MG TAB 1 tablet by mouth daily FUROSEMIDE 01929486916 Active Gab Padron MD Active LISINOPRIL 20 MG ORAL TABS 1 tab by mouth daily LISINOPRIL 83467135225 Active Gab Padron MD Active FUROSEMIDE 20 MG TABS 1 pill by mouth daily, for edema FUROSEMIDE 17984317140 No Longer Active Yolande Lindsay MD PhD Active ATORVASTATIN CALCIUM 10 MG TABS 1 pill by mouth daily, for cholesterol 09/06 ATORVASTATIN CALCIUM 92901983938 Active Gab Padron MD Active CALCIUM 600+D PLUS MINERALS 600-400 MG-UNIT ORAL CHEW 1 tab by mouth daily CALCIUM CARBONATE-VIT D-MIN 49873133580 No Longer Active Yolande Lindsay MD PhD Active CYCLOBENZAPRINE HCL 10 MG TABS 1 tablet by mouth three times daily as needed for muscle spasm/pain CYCLOBENZAPRINE HCL 90892136126 Active Yolande Lindsay MD PhD Active ADULT ASPIRIN EC LOW STRENGTH 81 MG TBEC Take 1 tablet by mouth daily 2014 ASPIRIN 67136384710 No Longer Active Yolande Lindsay MD PhD Active ZOFRAN ODT 4 MG TBDP 1 pill dissolved by mouth every 4 hours if needed for nausea ONDANSETRON 79508046744 No Longer Active Yolande Lindsay MD PhD Active CEFTIN 500 MG TAB 1 twice a day CEFUROXIME AXETIL 97158396275 No Longer Active Yolande Lindsay MD PhD Active ALBUTEROL SULFATE 0.083 % NEBU SOLN one vial per nebulizer every 4-6 hours as needed ALBUTEROL SULFATE 67414474644 No Longer Active Alexis Ordaz MD Active DOXYCYCLINE HYCLATE 100 MG CAP 1 cap by mouth twice daily DOXYCYCLINE HYCLATE 17020081426 No Longer Active Yolande Lindsay MD PhD Active CYCLOBENZAPRINE HCL 10 MG TABS 1/2 - 1 tab by mouth three times daily if needed for spasms/pain CYCLOBENZAPRINE HCL 73143849976 No Longer Active Yolande Lindsay MD PhD Active AZITHROMYCIN 250 MG TABS 2 pills on day 1, then 1 pill daily x 4 days AZITHROMYCIN 92373376761 No Longer Active Yolande Lindsay MD PhD Active XOPENEX 1.25 MG/3ML NEBU 1 neb every 4 hours if needed for cough/congestion LEVALBUTEROL HCL 34329136530 No Longer Active Yolande Lindsay MD PhD Active DOXYCYCLINE HYCLATE 100 MG TAB 1 tab twice a day for 14 days 2013 DOXYCYCLINE HYCLATE 45690269889 No Longer Active Yolande Lindsay MD PhD Active PREVACID 30 MG CPDR Take 1 tablet by mouth daily-PRN LANSOPRAZOLE 14639041594 No Longer Active Yolande Lindsay MD PhD Active PA VITAMIN D-3 2000 UNIT CAPS 1 CAP PO DAILY CHOLECALCIFEROL 34220260262 No Longer Active Yolande Lindsay MD PhD Active CEFDINIR 300 MG CAPS by mouth twice a day CEFDINIR 00902057709 No Longer Active Gab Padron MD Active TOPAMAX 50 MG TABS 1 PO twice daily TOPIRAMATE 89782279279 Active Yolande Lindsay MD PhD Active AZITHROMYCIN 250 MG TABS 2 po qd x 1 day, then 1 po qd x 4 days AZITHROMYCIN 01353068283 No Longer Active Yolande Lindsay MD PhD Active DICLOFENAC SODIUM 75 MG TBEC 1 tablet by q 12 hours PRN headaches DICLOFENAC SODIUM 73985831784 No Longer Active Yolande Lindsay MD PhD Active FLONASE 50 MCG/ACT SUSP 1 spray each nostril am and hs FLUTICASONE PROPIONATE 93757993501 No Longer Active Todd Callaway MD Active ANUSOL-HC 25 MG SUPPOSITORY 1 rectally twice a day as needed for hemorrhoids HYDROCORTISONE JAYDEN (RECTAL) 40170661450 No Longer Active Yolande Lindsay MD PhD Active ANUSOL-HC 25 MG SUPPOSITORY 1 suppository rectally each evening as needed for anal fissure HYDROCORTISONE JAYDEN (RECTAL) 96309381087 No Longer Active LONNIE Iglesias Active VALIUM 5 MG TAB 1 po 30 minutes prior to your MRI DIAZEPAM 43334335772 No Longer Active LONNIE Iglesias Active METHOCARBAMOL 750 MG TABS 1 PO QID PRN METHOCARBAMOL 51052647192 No Longer Active Daphne Wetzel APRN Active NITROSTAT 0.4 MG SUBL as directed NITROGLYCERIN 07448760686 No Longer Active Rodrigo Sarah APRN Active ROBAXIN-750 750 MG TABS 2 four times a day for 3 days as needed for muscle spasm, then 1 four times a day as needed METHOCARBAMOL 25401563384 No Longer Active Rodrigo Sarah APRN Active HYDROCODONE-ACETAMINOPHEN 5-325 MG TABS 1 q 4-6 hrs prn HYDROCODONE-ACETAMINOPHEN 84290200824 No Longer Active Rodrigo Sarah APRN Active VERAPAMIL HCL CR 180 MG CR-TABS TAKE 1 TAB DAILY VERAPAMIL HCL 80117239635 No Longer Active Yolande Lindsay MD PhD Active BACTRIM DS 800-160 MG TAB 1 tab by mouth twice daily TRIMETHOPRIM-SULFAMETHOXAZOLE 17180231282 No Longer Active Yolande Lindsay MD PhD Active NEXIUM 40 MG PACK 1 by mouth daily ESOMEPRAZOLE MAGNESIUM 55316359852 No Longer Active Des Hines MD Active EPIPEN 2-CHARLETTE 0.3 MG/0.3ML OMARI as need for allergic reaction EPINEPHRINE 54705100877 Active Yolande Lindsay MD PhD Active NEXIUM 40 MG CPDR 1 PO Q D DAY ESOMEPRAZOLE MAGNESIUM 84393166354 No Longer Active Sadia Perry RN Active NEXIUM 40 MG PACK 1 by mouth daily NEXIUM 40 MG PACK ESOMEPRAZOLE MAGNESIUM Inactive VERAPAMIL HCL CR 180 MG CR-TABS TAKE 1 TAB DAILY VERAPAMIL HCL CR 180 MG CR-TABS VERAPAMIL HCL Inactive HYDROCODONE-ACETAMINOPHEN 5-325 MG TABS 1 q 4-6 hrs prn HYDROCODONE-ACETAMINOPHEN 5-325 MG TABS 945009 HYDROCODONE-ACETAMINOPHEN Inactive ROBAXIN-750 750 MG TABS 2 four times a day for 3 days as needed for muscle spasm, then 1 four times a day as needed ROBAXIN-750 750 MG TABS 876185 METHOCARBAMOL Inactive NITROSTAT 0.4 MG SUBL as directed NITROSTAT 0.4 MG SUBL 046926 NITROGLYCERIN Inactive METHOCARBAMOL 750 MG TABS 1 PO QID PRN METHOCARBAMOL 750 MG TABS 113020 METHOCARBAMOL Inactive VALIUM 5 MG TAB 1 po 30 minutes prior to your MRI VALIUM 5 MG TAB 662547 DIAZEPAM Inactive ANUSOL-HC 25 MG SUPPOSITORY 1 suppository rectally each evening as needed for anal fissure ANUSOL-HC 25 MG SUPPOSITORY 9392956 HYDROCORTISONE JAYDEN (RECTAL) Inactive ANUSOL-HC 25 MG SUPPOSITORY 1 rectally twice a day as needed for hemorrhoids ANUSOL-HC 25 MG SUPPOSITORY 3143808 HYDROCORTISONE JAYDNE (RECTAL) Inactive FLONASE 50 MCG/ACT SUSP 1 spray each nostril am and hs FLONASE 50 MCG/ACT SUSP 5290367 FLUTICASONE PROPIONATE Inactive DICLOFENAC SODIUM 75 MG TBEC 1 tablet by q 12 hours PRN headaches DICLOFENAC SODIUM 75 MG TBEC 678354 DICLOFENAC SODIUM Inactive PA VITAMIN D-3 2000 UNIT CAPS 1 CAP PO DAILY PA VITAMIN D-3 2000 UNIT CAPS CHOLECALCIFEROL Inactive PREVACID 30 MG CPDR Take 1 tablet by mouth daily-PRN PREVACID 30 MG CPDR 546060 LANSOPRAZOLE Inactive DOXYCYCLINE HYCLATE 100 MG TAB 1 tab twice a day for 14 days 2013 DOXYCYCLINE HYCLATE 100 MG TAB 7745397 DOXYCYCLINE HYCLATE Inactive XOPENEX 1.25 MG/3ML NEBU 1 neb every 4 hours if needed for cough/congestion XOPENEX 1.25 MG/3ML NEBU 462324 LEVALBUTEROL HCL Inactive CYCLOBENZAPRINE HCL 10 MG TABS 1/2 - 1 tab by mouth three times daily if needed for spasms/pain CYCLOBENZAPRINE HCL 10 MG TABS 422904 CYCLOBENZAPRINE HCL Inactive ALBUTEROL SULFATE 0.083 % NEBU SOLN one vial per nebulizer every 4-6 hours as needed ALBUTEROL SULFATE 0.083 % NEBU SOLN 386524 ALBUTEROL SULFATE Inactive CEFTIN 500 MG TAB 1 twice a day CEFTIN 500 MG TAB 225928 CEFUROXIME AXETIL Inactive ZOFRAN ODT 4 MG TBDP 1 pill dissolved by mouth every 4 hours if needed for nausea ZOFRAN ODT 4 MG TBDP 252368 ONDANSETRON Inactive ADULT ASPIRIN EC LOW STRENGTH 81 MG TBEC Take 1 tablet by mouth daily 2014 ADULT ASPIRIN EC LOW STRENGTH 81 MG TBEC 743402 ASPIRIN Inactive CALCIUM 600+D PLUS MINERALS 600-400 [...] or an apple NIACIN 500 MG TABS 109508 NIACIN Inactive NIASPAN 500 MG ORAL CR-TABS 1 pill nightly x 1 week, then 2 pills nightly x 1 week, then 3 pills nightly x 1 week, then 4 pills nightly NIASPAN 500 MG ORAL CR-TABS NIACIN (ANTIHYPERLIPIDEMIC) Inactive OXYCODONE HCL 5 MG ORAL CAPS 1 TAB PO Q HS OXYCODONE HCL 5 MG ORAL CAPS 0356230 OXYCODONE HCL Inactive FLUTICASONE PROPIONATE 50 MCG/ACT SUSP 1 to 2 sprays each nostril daily 04/21 FLUTICASONE PROPIONATE 50 MCG/ACT SUSP 3455503 FLUTICASONE PROPIONATE Inactive POLYTRIM 90418-1.1 UNIT/ML-% SOLN 1 gtt to affected eye q3h x 7 days POLYTRIM 71161-8.1 UNIT/ML-% SOLN 527962 POLYMYXIN B- TRIMETHOPRIM Inactive CHERATUSSIN AC 100-10 MG/5ML SYRP 1 tsp by mouth every 4 hours as needed for cough CHERATUSSIN AC 100-10 MG/5ML SYRP 563125 GUAIFENESIN-CODEINE Inactive LEVOTHYROXINE SODIUM 75 MCG TABS Take 1 tab daily LEVOTHYROXINE SODIUM 75 MCG TABS 654792 LEVOTHYROXINE SODIUM Inactive CLARITIN 10 MG TAB 1 tablet by mouth daily as needed for allergies CLARITIN 10 MG TAB 512879 LORATADINE Inactive FISH OIL 1000 MG CAPS 3 pills daily FISH OIL 1000 MG CAPS OMEGA-3 FATTY ACIDS Inactive ONDANSETRON 4 MG TBDP 1 q4h PRN nausea ONDANSETRON 4 MG TBDP 432839 ONDANSETRON Inactive ADVAIR DISKUS 250-50 MCG/DOSE AEPB 1 puff BID ADVAIR DISKUS 250-50 MCG/DOSE AEPB FLUTICASONE-SALMETEROL Inactive BACTRIM DS 800-160 MG TAB 1 tab by mouth twice daily BACTRIM DS 800-160 MG TAB 19820606 TRIMETHOPRIM-SULFAMETHOXAZOLE Inactive AZITHROMYCIN 250 MG TABS 2 po qd x 1 day, then 1 po qd x 4 days AZITHROMYCIN 250 MG TABS 8920648 AZITHROMYCIN Inactive CEFDINIR 300 MG CAPS by mouth twice a day CEFDINIR 300 MG CAPS 372313 CEFDINIR Inactive AZITHROMYCIN 250 MG TABS 2 pills on day 1, then 1 pill daily x 4 days AZITHROMYCIN 250 MG TABS 7979267 AZITHROMYCIN Inactive DOXYCYCLINE HYCLATE 100 MG CAP 1 cap by mouth twice daily DOXYCYCLINE HYCLATE 100 MG CAP 7553545 DOXYCYCLINE HYCLATE Inactive FUROSEMIDE 20 MG TABS 1 pill by mouth daily, for edema FUROSEMIDE 20 MG TABS 391535 FUROSEMIDE Inactive AZITHROMYCIN 250 MG TABS 2 po qd x 1 day, then 1 po qd x 4 days AZITHROMYCIN 250 MG TABS 4976360 AZITHROMYCIN Inactive CEFTIN 500 MG TAB 1 twice a day CEFTIN 500 MG TAB 770674 CEFUROXIME AXETIL Inactive CEFDINIR 300 MG CAPS 1 po BID x 10 days CEFDINIR 300 MG CAPS 718071 CEFDINIR Inactive BACTRIM DS 800-160 MG TAB 1 tab by mouth twice daily BACTRIM DS 800-160 MG TAB 19820606 TRIMETHOPRIM-SULFAMETHOXAZOLE Inactive PREDNISONE 20 MG TAB 2 tabs daily for 3 days, 1 tab daily for 3 days, 1/2 tab daily for 2 days PREDNISONE 20 MG TAB 804836 PREDNISONE Inactive PREDNISONE 20 MG TAB take 3 tabs daily for 3 days, 2 tabs daily for 3 days, 1 tab daily for 3 days, 1/2 tab daily for 3 days PREDNISONE 20 MG TAB 490108 PREDNISONE Inactive Immunizations Vaccine Administration Date Value Standard Description Seasonal influenza vaccine, injectable, containing preservative, for > 3 years old (Afluria, FluLaval, Fluzone, Fluvirin, Fluarix, Agriflu(>=18 yo)) Fluzone (>3 yrs.) [ZJD639] Influenza, seasonal, injectable influenza immunization (Flu Vax) has been administered Influenza - Unspecified Formulation [CVX88] influenza virus vaccine, unspecified formulation pneumococcal immunization administered Pneumovax 23 [CVX33] pneumococcal polysaccharide vaccine, 23 valent Seasonal influenza vaccine, injectable, containing preservative, for > 3 years old (Afluria, FluLaval, Fluzone, Fluvirin, Fluarix, Agriflu(>=18 yo)) Fluzone (>3 yrs.) [[id number]] Influenza, seasonal, injectable dT (Diphtheria and Tetanus) booster given given Td(adult) unspecified formulation Boostrix (Tetanus toxoid, reduced diphtheria toxoid and acellular pertussis vaccine, adsorbed), booster Boostrix [UEG827] tetanus toxoid, reduced diphtheria toxoid, and acellular [...] PANEL - Chemistry cholesterol, serum 166 mg/dL 559-410 2129/12/06 triglyceride, serum, fasting 86 mg/dL 30-200 HDL [...] Panel - Chemistry sodium, serum 142 mmol/L 719-742 4643/07/18 carbon dioxide, venous blood 27.8 mmol/L 21.0-32.0 [...] negative Encounters Code Encounter Date Provider Facility CPT-79603 Level 4 New Patient 16:13:15 CDT Todd Callaway MD [facility] CPT-59562 Level 4 Est. Patient 13:18:33 CDT Gab Padron MD [facility] CPT-44717 Level 3 Est. Patient 15:20:50 CDT Jared Og MD [facility] CPT-69062 Level 3 Est. Patient 17:43:55 SEWER AND DRAIN TECHNICIAN Gab Padron MD [facility] CPT-27628 Level 3 Est. Patient 17:07:49 SEWER AND DRAIN TECHNICIAN Jared Og MD [facility] CPT-35462 Level 4 Est. Patient 19:55:18 SEWER AND DRAIN TECHNICIAN Jared Og MD [facility] CPT-28526 Level 3 Est. Patient 20:13:34 SEWER AND DRAIN TECHNICIAN Jared Og MD [facility] CPT-47930 Level 4 Est. Patient 16:31:27 CDT Gab Padron MD [facility] CPT-68150 Level 2 Est. Patient 12:23:38 CDT Jared Og MD [facility] CPT-23546 Level 3 Est. Patient 11:01:51 CDT Gab Padron MD [facility] CPT-85461 Level 3 Est. Patient 15:27:02 CDT Jared Og MD [facility] CPT-78970 Level 4 Est. Patient 09:25:27 CDT Gab Padron MD [facility] CPT-66149 Level 3 Est. Patient 10:29:41 CDT Rodrigo Sarah [facility] [place]-[address]8639 Level 4 Est. Patient 17:51:05 CDT Gab Padron MD [facility]-53054 Level 3 Est. Patient 14:18:08 CDT Gab Padron MD [facility]-65428 Level 4 Est. Patient 10:18:54 CDT Gab Padron MD [facility]-11432 Level 3 Est. Patient 11:30:07 CDT Rodrigo Sarah [facility] [place]-96887 Level 4 Est. Patient 21:02:30 SEWER AND DRAIN TECHNICIAN Gab Padron MD [facility]-66751 Level 3 Est. Patient 11:02:19 SEWER AND DRAIN TECHNICIAN Gab Padron MD [facility] CPT-82897 Level 4 Est. Patient 22:24:31 SEWER AND DRAIN TECHNICIAN Gab Padron MD [facility] CPT-65806 Level 3 Est. Patient 18:33:46 SEWER AND DRAIN TECHNICIAN Gab Padron MD [facility] CPT-41780 Level 3 Est. Patient 16:19:11 CDT Yolande Lindsay MD [facility]-52943 Level 3 Est. Patient 18:59:14 CDT Yolande Lindsay MD [facility]-86668 Level 4 Est. Patient 21:29:26 CDT Yolande Lindsay MD [facility]-95972 Level 3 Est. Patient 07:37:45 CDT Yolande Lindsay MD [facility] CPT-08417 Level 3 Est. Patient 17:03:46 CDT Yolande Lindsay MD [facility]-52903 Level 4 Est. Patient 20:02:13 SEWER AND DRAIN TECHNICIAN Yolande Lindsay MD [facility] CPT-57621 Level 3 Est. Patient 16:02:07 SEWER AND DRAIN TECHNICIAN Alexis Ordaz MD [facility] CPT-55585 Level 3 Est. Patient 12:41:24 SEWER AND DRAIN TECHNICIAN Yolande Lindsay MD [facility]-03210 Level 3 Est. Patient 15:41:20 SEWER AND DRAIN TECHNICIAN Yolande Lindsay MD [facility]-50282 Level 3 Est. Patient 13:20:02 SEWER AND DRAIN TECHNICIAN Yolande Lindsay MD [facility]-64786 Level 3 Est. Patient 15:00:38 CDT Jared Og MD [facility] CPT-63989 Level 3 Est. Patient 10:22:32 CDT Yolande Lindsay MD [facility]-38411 Level 3 Est. Patient 17:12:58 CDT Yolande Lindsay MD [facility] CPT-32857 Level 4 Est. Patient 13:30:58 CDT Yolande Lindsay MD [facility] CPT-30420 Level 4 New Patient 09:02:42 CDT Jared Og MD [facility] CPT-33357 Level 3 Est. Patient 08:19:07 CDT Yolande Lindsay MD [facility]-55185 Level 3 Est. Patient 12:00:13 SEWER AND DRAIN TECHNICIAN Gab Padron MD [facility] CPT-39429 Level 3 Est. Patient 16:15:23 SEWER AND DRAIN TECHNICIAN Yolande Lindsay MD [facility]-78935 Level 2 Est. Patient 19:47:15 CDT Yolande Lindsay MD [facility]-94962 Level 3 Est. Patient 21:38:31 CDT Yolande Lindsay MD [facility]-69187 Level 3 Est. Patient 10:25:12 CDT Adiel PERAZA [facility]-66181 Level 4 Est. Patient 10:51:58 CDT Yolande Lindsay MD [facility]-80062 Level 3 Est. Patient 14:04:55 SEWER AND DRAIN TECHNICIAN Rodrigo Sarah [facility]-35210 Level 3 Est. Patient 10:46:35 SEWER AND DRAIN TECHNICIAN Rodrigo Sarah [facility]-46029 Level 3 Est. Patient 14:24:37 SEWER AND DRAIN TECHNICIAN Yolande Lindsay MD [facility]-06637 Level 3 Est. Patient 17:41:58 SEWER AND DRAIN TECHNICIAN Yolande Lindsay MD [facility]-55889 Level 2 Est. Patient 22:01:41 SEWER AND DRAIN TECHNICIAN Rodrigo Sarah [facility]-46010 Level 2 Est. Patient 22:01:11 SEWER AND DRAIN TECHNICIAN Rodrigo Sarah [facility]-87645 Level 3 Est. Patient 10:12:29 SEWER AND DRAIN TECHNICIAN Rodrigo Sarah [facility] CPT-71812 Level 3 Est. Patient 11:05:44 CDT Alexis Ordaz MD [facility]-12823 Level 3 Est. Patient 14:57:20 CDT Yolande Lindsay MD [facility]-39030 Level 3 Est. Patient 14:40:57 CDT Yolande Lindsay MD [facility]79947 Level 3 Est. Patient 20:55:40 CDT Yolande Lindsay MD PhD [facility] CPT-25016 Level 3 Est. Patient 12:42:38 SEWER AND DRAIN TECHNICIAN Yolande Lindsay MD PhD [facility] CPT-81211 Level 3 Est. Patient 11:54:49 SEWER AND DRAIN TECHNICIAN Des Hines MD [facility] CPT-84373 Level 3 Est. Patient 17:06:38 CDT Dewayne PERAZA [facility] Procedures Code Procedure Name Date Entry Date Standard Description CPT-J2930 Solu Medrol 125 mg (Methyl Prednisolone Sodium Succinate) 13:19:02 CDT CPT-88963 Abx/Therapy Injection 13:19:02 CDT CPT-J2930 Solu Medrol 125 mg (Methyl Prednisolone Sodium Succinate) 13:05:03 CDT CPT-00934 Hip, complete, 2-3 views - XRAY USE ONLY 17:19:04 SEWER AND DRAIN TECHNICIAN CPT-33480 Venipuncture Draw Fee 08:37:59 SEWER AND DRAIN TECHNICIAN CPT-92476 Liver Profile - LAB USE ONLY 08:37:59 SEWER AND DRAIN TECHNICIAN CPT-37114 Lipid - LAB USE ONLY 08:37:58 SEWER AND DRAIN TECHNICIAN CPT-25119 First Vx - Ix admin via ID IM or jet injects without counseling by physician 11:52:31 CDT CPT-55610 Fluzone Preservative Free Intramuscular Suspension 11:52 :31 CDT CPT-90894 Foot, left, comp min 3V - XRAY USE ONLY 09:24:54 CDT CPT-74120 Abd single AP View - XRAY USE ONLY 11:16:17 CDT CPT-50255 T spine AP/ Lat - XRAY USE ONLY 09:34:21 CDT CPT-71069 Chest 2V Frontal and Lat - XRAY USE ONLY 10:48:51 CDT CPT-25670 LS spine comp w obliq 13:28:00 SEWER AND DRAIN TECHNICIAN CPT-J1040 Depo Medrol 80 mg (Methyl Prednisolone Acetate) 10:51: 28 SEWER AND DRAIN TECHNICIAN CPT-J1100 Decadron 8mg (Dexamethasone) 10:51:28 SEWER AND DRAIN TECHNICIAN CPT-18371 Abx/Therapy Injection 10:51:28 SEWER AND DRAIN TECHNICIAN CPT-J1100 Decadron 8mg (Dexamethasone) 21:02:30 SEWER AND DRAIN TECHNICIAN CPT-J1040 Depo Medrol 80 mg (Methyl Prednisolone Acetate) 21:02: 30 SEWER AND DRAIN TECHNICIAN [id number] Event Monitor - MC Transmission 09:12:32 CDT 08/06 [id number] Event Monitor - MC review and interp 09:12:32 CDT [id number] Event Monitor - MC recording 09:12:32 CDT CPT-35036 EKG Trac and Interp 16:50:22 CDT CPT-J1030 Depo Medrol 40 mg (Methyl Prednisolone Acetate) 17:05: 54 CDT CPT-J1100 Decadron 4mg (Dexamethasone) 17:05:54 CDT CPT-60295 Abx/Therapy Injection 17:05:54 CDT CPT-J1100 Decadron 4mg (Dexamethasone) 16:55:28 CDT CPT-J1030 Depo Medrol 40 mg (Methyl Prednisolone Acetate) 16:55: 28 CDT CPT-51577 Ankle Complete - Min 3V 15:58:50 CDT CPT-24286 Knee 3V 15:58:50 CDT CPT-57948 Hip comp min 2V 15:58:50 CDT CPT-J2270 Morphine Sulfate 10 mg 14:25:44 SEWER AND DRAIN TECHNICIAN CPT-J2550 Phenergan 12.5 mg (Promethazine) 14:25:44 SEWER AND DRAIN TECHNICIAN CPT-75535 Abx/Therapy Injection 14:25:44 SEWER AND DRAIN TECHNICIAN CPT-J2550 Phenergan 12.5 mg (Promethazine) 14:08:03 SEWER AND DRAIN TECHNICIAN CPT-J2270 Morphine Sulfate 10 mg 14:08:03 SEWER AND DRAIN TECHNICIAN CPT-54115 Bladder Scan 15:00:38 CDT CPT-TCMM Transitional Care Mgmt-Moderate 09:52:22 CDT CPT-J1030 Depo Medrol 40 mg (Methyl Prednisolone Acetate) 10:55: 18 CDT CPT-J1100 Decadron 4mg (Dexamethasone) 10:55:18 CDT CPT-35771 Abx/Therapy Injection 10:55:18 CDT CPT-J1030 Depo Medrol 40 mg (Methyl Prednisolone Acetate) 10:22: 32 CDT CPT-J1100 Decadron 4mg (Dexamethasone) 10:22:32 CDT CPT-58092 Postop F/U Visit 14:37:13 CDT CPT-10755 Ankle Complete - Min 3V 17:11:58 CDT CPT-53022 Foot comp min 3V 17:11:58 CDT CPT-96561 Bladder Scan 09:56:58 CDT CPT-64408 Postop F/U Visit 09:56:58 CDT CPT-43958 Cystoscopy 09:02:42 CDT CPT-01385 Bladder Scan 09:02:42 CDT CPT-72100 Abd single AP View 16:00:35 CDT CPT-64632 Administration single or combination vaccine inc oral 10 :15:43 CDT CPT-13063 Influenza split virus > age 3 10:15:43 CDT CPT-55146 Nail Avulsion 09:24:57 CDT CPT-OV Office Visit 11:15:41 CDT CPT-32236 Abx/Therapy Injection 10:51:30 CDT CPT-J3301 Kenalog 40 mg (Triamcinolone Acetonide) 10:25:12 CDT CPT-J1100 Decadron 4mg (Dexamethasone) 10:25:12 CDT CPT-11888 Anoscopy diagnostic 10:36:12 CDT CPT-OV Office Visit 15:34:31 CDT CPT-16673 Abx/Therapy Injection 08:21:15 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 Care Visit 14:19:18 SEWER AND DRAIN TECHNICIAN CPT-58150 Postop F/U Visit 14:47:51 SEWER AND DRAIN TECHNICIAN CPT-74823 Postop F/U Visit 15:15:14 SEWER AND DRAIN TECHNICIAN CPT-12864 Postop F/U Visit 14:41:43 CDT CPT-55107 Postop F/U Visit 15:47:46 CDT CPT-OV Office Visit 15:27:23 CDT CPT-OV Office Visit 17:20:34 CDT CPT-23367 Abx/Therapy Injection 15:05:57 CDT CPT-J1100 Decadron 8mg (Dexamethasone) 14:44:57 CDT CPT-J1040 Depo Medrol 80 mg (Methyl Prednisolone Acetate) 14:44: 57 CDT CPT-JTINJ Joint Injection 10:17:37 CDT CPT-80258 Administration 2+ single or combination vaccines inc oral 13:01:46 SEWER AND DRAIN TECHNICIAN CPT-67355 Administration single or combination vaccine inc oral 13 :01:46 SEWER AND DRAIN TECHNICIAN CPT-52350 Pneumovax 13:01:46 SEWER AND DRAIN TECHNICIAN CPT-97864 Influenza split virus > age 3 13:01:46 SEWER AND DRAIN TECHNICIAN CPT-30870 Administration single or combination vaccine inc oral 08 :56:49 CDT CPT-05407 Tdap 08:56:49 CDT
--- OUTSIDE RECORDS SUMMARY | 2017-03-21 21:23 | XMS REPORT | Clinical Summary ---
Author Author Admin, MARGRET Organization [facility] Address Unknown Phone Unavailable Allergies, Adverse Reactions, Alerts Allergy Name Reaction Description Start Date Severity Status Provider VALENTIN Critical Active Jillina Frazell SILK PRINTER CHLORHEXIDINE GLUCONATE tongue and gums swollen Critical Active Hoa Otto RMA NORFLEX Rash Critical Active Jillina Frazell SILK PRINTER TRAZODONE HCL sees things Critical Active Dewayne [...] not elsewhere classified GERD 530.81 Resolved Todd Clalaway MD Esophageal reflux BACK PAIN 724.5 Resolved [...] MD Lumbago Cough 786.2 Active Rodrigo Sarah SILK PRINTER Cough 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 Rodrigo Sarah SILK PRINTER 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 elsewhere and [...] 1 po qd x 4 days AZITHROMYCIN 25448089475 No Longer Active Rodrigo Sarah APRN Active CLARITIN 10 MG TAB 1 tablet by mouth daily as needed for allergies LORATADINE 71811318831 Active Jibernabe Frahossein ZAPATAN Active OXYCODONE HCL 5 MG ORAL CAPS 1 TAB PO Q HS OXYCODONE HCL 52688171131 No Longer Active Jibernabe Sarah APRN Active NIASPAN 500 MG ORAL CR-TABS 1 pill nightly x 1 week, then 2 pills nightly x 1 week, then 3 pills nightly x 1 week, then 4 pills nightly NIACIN (ANTIHYPERLIPIDEMIC) 16316221187 No Longer Active Jillina Frahossein GAUTAM Active NIACIN 500 MG TABS 1 pill by mouth nightly x 1 week, then 2 pills x 1 week, then 3 pills x 1 week, then 4 pills nightly - take after evening meal, with applesauce or an apple NIACIN 88959139019 No Longer Active Yolande Lindsay MD PhD Active FISH OIL 1000 MG CAPS 3 pills daily OMEGA-3 FATTY ACIDS 52871828698 Active Yolande Lindsay MD PhD Active TRIAMCINOLONE ACETONIDE 0.1 % CREA apply bid sparingly to rash TRIAMCINOLONE ACETONIDE 91074503605 Active Yolande Lindsay MD PhD Active FUROSEMIDE 20 MG TAB 1 tablet by mouth daily FUROSEMIDE 40779837988 Active Yolande Lindsay MD PhD Active LISINOPRIL 20 MG ORAL TABS 1 tab by mouth daily LISINOPRIL 20503475861 Active Yolande Lindsay MD PhD Active FUROSEMIDE 20 MG TABS 1 pill by mouth daily, for edema FUROSEMIDE 10322438943 No Longer Active Yolande Lindsay MD PhD Active ATORVASTATIN CALCIUM 10 MG TABS 1 pill by mouth daily, for cholesterol 09/06 ATORVASTATIN CALCIUM 12503651058 Active Yolande Lindsay MD PhD Active CALCIUM 600+D PLUS MINERALS 600-400 MG-UNIT ORAL CHEW 1 tab by mouth daily CALCIUM CARBONATE-VIT D-MIN 84965141442 No Longer Active Yolande Lindsay MD PhD Active CYCLOBENZAPRINE HCL 10 MG TABS 1 tablet by mouth three times daily as needed for muscle spasm/pain CYCLOBENZAPRINE HCL 71427327030 Active Yolande Lindsay MD PhD Active ONDANSETRON 4 MG TBDP 1 q4h PRN nausea ONDANSETRON 73319846731 Active Yolande Lindsay MD PhD Active ADULT ASPIRIN EC LOW STRENGTH 81 MG TBEC Take 1 tablet by mouth daily 2014 ASPIRIN 64769485998 No Longer Active Yolande Lindsay MD PhD Active ZOFRAN ODT 4 MG TBDP 1 pill dissolved by mouth every 4 hours if needed for nausea ONDANSETRON 40865719997 No Longer Active Yolande Lindsay MD PhD Active CEFTIN 500 MG TAB 1 twice a day CEFUROXIME AXETIL 29606746244 No Longer Active Yolande Lindsay MD PhD Active ALBUTEROL SULFATE 0.083 % NEBU SOLN one vial per nebulizer every 4-6 hours as needed ALBUTEROL SULFATE 41068767178 No Longer Active Alexis Ordaz MD Active DOXYCYCLINE HYCLATE 100 MG CAP 1 cap by mouth twice daily DOXYCYCLINE HYCLATE 77789817149 No Longer Active Yolande Lindsay MD PhD Active CYCLOBENZAPRINE HCL 10 MG TABS 1/2 - 1 tab by mouth three times daily if needed for spasms/pain CYCLOBENZAPRINE HCL 63751817186 No Longer Active Yolande Lindsay MD PhD Active TRILEPTAL 600 MG TABS Take one 1/2 tablet in Am and 1 tablet at night OXCARBAZEPINE 20194894127 Active Yolande Lindsay MD PhD Active AZITHROMYCIN 250 MG TABS 2 pills on day 1, then 1 pill daily x 4 days AZITHROMYCIN 93777209683 No Longer Active Yolande Lindsay MD PhD Active XOPENEX 1.25 MG/3ML NEBU 1 neb every 4 hours if needed for cough/congestion LEVALBUTEROL HCL 35470593538 No Longer Active Yolande Lindsay MD PhD Active DOXYCYCLINE HYCLATE 100 MG TAB 1 tab twice a day for 14 days 2013 DOXYCYCLINE HYCLATE 73041764279 No Longer Active Yolande Lindsay MD PhD Active LEVOTHYROXINE SODIUM 75 MCG TABS Take 1 tab daily LEVOTHYROXINE SODIUM 57648754482 Active Yolande Lindsay MD PhD Active PREVACID 30 MG CPDR Take 1 tablet by mouth daily-PRN LANSOPRAZOLE 62733393137 No Longer Active Yolande Lindsay MD PhD Active PA VITAMIN D-3 2000 UNIT CAPS 1 CAP PO DAILY CHOLECALCIFEROL 39361353347 No Longer Active Yolande Lindsay MD PhD Active CEFDINIR 300 MG CAPS by mouth twice a day CEFDINIR 73514935600 No Longer Active Gab Padron MD Active TOPAMAX 50 MG TABS 1 PO twice daily TOPIRAMATE 85354954179 Active Yolande Lindsay MD PhD Active AZITHROMYCIN 250 MG TABS 2 po qd x 1 day, then 1 po qd x 4 days AZITHROMYCIN 85938744754 No Longer Active Yolande Lindsay MD PhD Active DICLOFENAC SODIUM 75 MG TBEC 1 tablet by q 12 hours PRN headaches DICLOFENAC SODIUM 20480852762 No Longer Active Yolande Lindsay MD PhD Active FLONASE 50 MCG/ACT SUSP 1 spray each nostril am and hs FLUTICASONE PROPIONATE 55962215246 No Longer Active Todd Callaway MD Active ANUSOL-HC 25 MG SUPPOSITORY 1 rectally twice a day as needed for hemorrhoids HYDROCORTISONE JAYDEN (RECTAL) 83111323524 No Longer Active Yolande Lindsay MD PhD Active ANUSOL-HC 25 MG SUPPOSITORY 1 suppository rectally each evening as needed for anal fissure HYDROCORTISONE JAYDEN (RECTAL) 23220641114 No Longer Active LONNIE Iglesias Active VALIUM 5 MG TAB 1 po 30 minutes prior to your MRI DIAZEPAM 56396656869 No Longer Active LONNIE Iglesias Active METHOCARBAMOL 750 MG TABS 1 PO QID PRN METHOCARBAMOL 72236185301 No Longer Active Daphne Wetzel APRN Active NITROSTAT 0.4 MG SUBL as directed NITROGLYCERIN 69574917556 No Longer Active Rodrigo Sarah APRN Active ROBAXIN-750 750 MG TABS 2 four times a day for 3 days as needed for muscle spasm, then 1 four times a day as needed METHOCARBAMOL 57398736606 No Longer Active Rodrigo Sarah APRN Active HYDROCODONE-ACETAMINOPHEN 5-325 MG TABS 1 q 4-6 hrs prn HYDROCODONE-ACETAMINOPHEN 80597605713 No Longer Active Silvestrellnacho Sarah APRN Active VERAPAMIL HCL CR 180 MG CR-TABS TAKE 1 TAB DAILY VERAPAMIL HCL 49960153484 No Longer Active Yolande Lindsay MD PhD Active BACTRIM DS 800-160 MG TAB 1 tab by mouth twice daily TRIMETHOPRIM-SULFAMETHOXAZOLE 45791030095 No Longer Active Yolande Lindsay MD PhD Active NEXIUM 40 MG PACK 1 by mouth daily ESOMEPRAZOLE MAGNESIUM 64884973712 No Longer Active Des Hines MD Active EPIPEN 2-CHARLETTE 0.3 MG/0.3ML OMARI as need for allergic reaction EPINEPHRINE 64762110258 Active Yolande Lindsay MD PhD Active NEXIUM 40 MG CPDR 1 PO Q D DAY ESOMEPRAZOLE MAGNESIUM 29826605694 No Longer Active Sadia Perry RN Active NEXIUM 40 MG PACK 1 by mouth daily NEXIUM 40 MG PACK ESOMEPRAZOLE MAGNESIUM Inactive VERAPAMIL HCL CR 180 MG CR-TABS TAKE 1 TAB DAILY VERAPAMIL HCL CR 180 MG CR-TABS VERAPAMIL HCL Inactive HYDROCODONE-ACETAMINOPHEN 5-325 MG TABS 1 q 4-6 hrs prn HYDROCODONE-ACETAMINOPHEN 5-325 MG TABS 383894 HYDROCODONE-ACETAMINOPHEN Inactive ROBAXIN-750 750 MG TABS 2 four times a day for 3 days as needed for muscle spasm, then 1 four times a day as needed ROBAXIN-750 750 MG TABS 557934 METHOCARBAMOL Inactive NITROSTAT 0.4 MG SUBL as directed NITROSTAT 0.4 MG SUBL NITROGLYCERIN Inactive METHOCARBAMOL 750 MG TABS 1 PO QID PRN METHOCARBAMOL 750 MG TABS 531291 METHOCARBAMOL Inactive VALIUM 5 MG TAB 1 po 30 minutes prior to your MRI VALIUM 5 MG TAB 379021 DIAZEPAM Inactive ANUSOL-HC 25 MG SUPPOSITORY 1 suppository rectally each evening as needed for anal fissure ANUSOL-HC 25 MG SUPPOSITORY 9605297 HYDROCORTISONE JAYDEN (RECTAL) Inactive ANUSOL-HC 25 MG SUPPOSITORY 1 rectally twice a day as needed for hemorrhoids ANUSOL-HC 25 MG SUPPOSITORY 3359411 HYDROCORTISONE JAYDEN (RECTAL) Inactive FLONASE 50 MCG/ACT SUSP 1 spray each nostril am and hs FLONASE 50 MCG/ACT SUSP FLUTICASONE PROPIONATE Inactive DICLOFENAC SODIUM 75 MG TBEC 1 tablet by q 12 hours PRN headaches DICLOFENAC SODIUM 75 MG TBEC 976974 DICLOFENAC SODIUM Inactive PA VITAMIN D-3 2000 UNIT CAPS 1 CAP PO DAILY PA VITAMIN D-3 2000 UNIT CAPS CHOLECALCIFEROL Inactive PREVACID 30 MG CPDR Take 1 tablet by mouth daily-PRN PREVACID 30 MG CPDR 452454 LANSOPRAZOLE Inactive DOXYCYCLINE HYCLATE 100 MG TAB 1 tab twice a day for 14 days 2013 DOXYCYCLINE HYCLATE 100 MG TAB 3407433 DOXYCYCLINE HYCLATE Inactive XOPENEX 1.25 MG/3ML NEBU 1 neb every 4 hours if needed for cough/congestion XOPENEX 1.25 MG/3ML NEBU 736538 LEVALBUTEROL HCL Inactive CYCLOBENZAPRINE HCL 10 MG TABS 1/2 - 1 tab by mouth three times daily if needed for spasms/pain CYCLOBENZAPRINE HCL 10 MG TABS 407047 CYCLOBENZAPRINE HCL Inactive ALBUTEROL SULFATE 0.083 % NEBU SOLN one vial per nebulizer every 4-6 hours as needed ALBUTEROL SULFATE 0.083 % NEBU SOLN 330461 ALBUTEROL SULFATE Inactive CEFTIN 500 MG TAB 1 twice a day CEFTIN 500 MG TAB 310830 CEFUROXIME AXETIL Inactive ZOFRAN ODT 4 MG TBDP 1 pill dissolved by mouth every 4 hours if needed for nausea ZOFRAN ODT 4 MG TBDP 672674 ONDANSETRON Inactive ADULT ASPIRIN EC LOW STRENGTH 81 MG TBEC Take 1 tablet by mouth daily 2014 ADULT ASPIRIN EC LOW STRENGTH 81 MG TBEC 906652 ASPIRIN Inactive CALCIUM 600+D PLUS MINERALS 600-400 [...] or an apple NIACIN 500 MG TABS 238700 NIACIN Inactive NIASPAN 500 MG ORAL CR-TABS 1 pill nightly x 1 week, then 2 pills nightly x 1 week, then 3 pills nightly x 1 week, then 4 pills nightly NIASPAN 500 MG ORAL CR-TABS NIACIN (ANTIHYPERLIPIDEMIC) Inactive OXYCODONE HCL 5 MG ORAL CAPS 1 TAB PO Q HS OXYCODONE HCL 5 MG ORAL CAPS 1848318 OXYCODONE HCL Inactive BACTRIM DS 800-160 MG TAB 1 tab by mouth twice daily BACTRIM DS 800-160 MG TAB 325994 TRIMETHOPRIM-SULFAMETHOXAZOLE Inactive AZITHROMYCIN 250 MG TABS 2 po qd x 1 day, then 1 po qd x 4 days AZITHROMYCIN 250 MG TABS 2839800 AZITHROMYCIN Inactive CEFDINIR 300 MG CAPS by mouth twice a day CEFDINIR 300 MG CAPS 797121 CEFDINIR Inactive AZITHROMYCIN 250 MG TABS 2 pills on day 1, then 1 pill daily x 4 days AZITHROMYCIN 250 MG TABS 3785894 AZITHROMYCIN Inactive DOXYCYCLINE HYCLATE 100 MG CAP 1 cap by mouth twice daily DOXYCYCLINE HYCLATE 100 MG CAP 4517879 DOXYCYCLINE HYCLATE Inactive FUROSEMIDE 20 MG TABS 1 pill by mouth daily, for edema FUROSEMIDE 20 MG TABS 147896 FUROSEMIDE Inactive AZITHROMYCIN 250 MG TABS 2 po qd x 1 day, then 1 po qd x 4 days AZITHROMYCIN 250 MG TABS 0496970 AZITHROMYCIN Inactive Immunizations Vaccine Administration Date Value Standard Description Seasonal influenza vaccine, injectable, containing preservative, for > 3 years old (Afluria, FluLaval, Fluzone, Fluvirin, Fluarix, Agriflu(>=18 yo)) Fluzone (>3 yrs.) [FFC252] Influenza, seasonal, injectable influenza immunization (Flu Vax) has been administered Influenza - Unspecified Formulation [CVX88] influenza virus vaccine, unspecified formulation Seasonal influenza vaccine, injectable, containing preservative, for > 3 years old (Afluria, FluLaval, Fluzone, Fluvirin, Fluarix, Agriflu(>=18 yo)) Fluzone (>3 yrs.) [KPF072] Influenza, seasonal, injectable pneumococcal immunization administered Pneumovax 23 [CVX33] pneumococcal polysaccharide vaccine, 23 valent dT (Diphtheria and Tetanus) booster given given Td(adult) unspecified formulation Boostrix (Tetanus toxoid, reduced diphtheria toxoid and acellular pertussis vaccine, adsorbed), booster Boostrix [BMS315] tetanus toxoid, reduced diphtheria toxoid, and acellular [...] Panel - Chemistry sodium, serum 145 mmol/L 611-778 9098/06/22 potassium, serum 3.9 mmol/L 3.5-5.2 chloride, serum 109 mmol/L 98-107 carbon dioxide, venous blood 23.4 mmol/L 21.0-32.0 blood glucose 92 mg/dL 65-110 calcium, serum 8.2 mg/dL 8.5-10.1 urea nitrogen, blood 24 mg/dL 7-18 creatinine, serum 1.30 mg/dL 0.60-1.30 Lab Report: [facility] Advanced Lipid and Inlammation Panel /21093 - Chemistry cholesterol, serum 148 mg/dL 038-978 1667/09/02 HDL cholesterol, serum 55 mg/dL > OR=46 triglyceride, serum, fasting 67 mg/dL LDL cholesterol, serum 80 mg/dL cholesterol/HDL ratio, serum 2.7 calc < OR=5.0 cholesterol, serum 198 mg/dL 336-552 8151/04/30 HDL cholesterol, serum 65 mg/dL > OR=46 triglyceride, serum, fasting 82 mg/dL LDL cholesterol, serum 117 mg/dL cholesterol/HDL ratio, serum 3.0 calc < OR=5.0 Lab Report: CBC W/DIFF, Basic Metabolic Panel - Chemistry sodium, serum 144 mmol/L 677-504 9851/01/21 potassium, serum 4.2 mmol/L 3.5-5.2 chloride, serum [...] (L) - Chemistry sodium, serum 145 mmol/L 258-655 8111/09/02 potassium, serum 4.6 mmol/L 3.5-5.2 chloride, serum [...] 51 mg/dL 30-200 cholesterol, serum 173 mg/dL 118-964 5527/04/28 HDL cholesterol, serum 63 mg/dL 32-96 LDL [...] mg/dL Encounters Code Encounter Date Provider Facility CPT-71748 Level 4 Est. Patient 22:24:31 MINE SAFETY DIRECTOR Gab Padron MD [facility] CPT-57055 Level 3 Est. Patient 18:33:46 MINE SAFETY DIRECTOR Gab Padron MD [facility] CPT-10737 Level 3 Est. Patient 16:19:11 CDT Yolande Lindsay MD PhD [facility] CPT-18949 Level 3 Est. Patient 18:59:14 CDT Yolande Lindsay MD [facility] CPT-13255 Level 4 Est. Patient 21:29:26 CDT Yolande Lindsay MD [facility]-37425 Level 3 Est. Patient 07:37:45 CDT Yolande Lindsay MD [facility]-32002 Level 3 Est. Patient 17:03:46 CDT Yolande Lindsay MD [facility]-75663 Level 4 Est. Patient 20:02:13 MINE SAFETY DIRECTOR Yolande Lindsay MD [facility]-48401 Level 3 Est. Patient 16:02:07 MINE SAFETY DIRECTOR Alexis Ordaz MD [facility]-79242 Level 3 Est. Patient 12:41:24 MINE SAFETY DIRECTOR Yolande Lindsay MD [facility]-19974 Level 3 Est. Patient 15:41:20 MINE SAFETY DIRECTOR Yolande Lindsay MD [facility] CPT-57218 Level 3 Est. Patient 13:20:02 MINE SAFETY DIRECTOR Yolande Lindsay MD [facility]-25755 Level 3 Est. Patient 15:00:38 CDT Jared Og MD [facility]-57350 Level 3 Est. Patient 10:22:32 CDT Yolande Lindsay MD [facility] CPT-97165 Level 3 Est. Patient 17:12:58 CDT Yolande Lindsay MD [facility] CPT-65431 Level 4 Est. Patient 13:30:58 CDT Yolande Lindsay MD [facility]-27092 Level 4 New Patient 09:02:42 CDT Jared Og MD [facility]-08763 Level 3 Est. Patient 08:19:07 CDT Yolande Lindsay MD [facility]-41952 Level 3 Est. Patient 12:00:13 MINE SAFETY DIRECTOR Gab Padron MD [facility]-55389 Level 3 Est. Patient 16:15:23 MINE SAFETY DIRECTOR Yolande Lindsay MD [facility]79920 Level 2 Est. Patient 19:47:15 CDT Yolande Lindsay MD [facility]-33554 Level 3 Est. Patient 21:38:31 CDT Yolande Lindsay MD [facility]71263 Level 3 Est. Patient 10:25:12 CDT Adiel PERAZA [facility]-72155 Level 4 Est. Patient 10:51:58 CDT Yolande Lindsay MD [facility]-26279 Level 3 Est. Patient 14:04:55 MINE SAFETY DIRECTOR Rodrigo Sarah [facility]-39016 Level 3 Est. Patient 10:46:35 MINE SAFETY DIRECTOR Rodrigo Sarah [facility]-00976 Level 3 Est. Patient 14:24:37 MINE SAFETY DIRECTOR Yolande Lindsay MD [facility]-37062 Level 3 Est. Patient 17:41:58 MINE SAFETY DIRECTOR Yolande Lindsay MD [facility]-79656 Level 2 Est. Patient 22:01:41 MINE SAFETY DIRECTOR Rodrigo Sarah [facility]-05295 Level 2 Est. Patient 22:01:11 MINE SAFETY DIRECTOR Rodrigo Sarah [facility]-62587 Level 3 Est. Patient 10:12:29 MINE SAFETY DIRECTOR Rodrigo Sarah [facility]-47252 Level 3 Est. Patient 11:05:44 CDT Alexis Ordaz MD [facility]-35898 Level 3 Est. Patient 14:57:20 CDT Yolande Lindsay MD [facility] CPT-21299 Level 3 Est. Patient 14:40:57 CDT Yolande Lindsay MD [facility] CPT-51126 Level 3 Est. Patient 20:55:40 CDT Yolande Lindsay MD [facility] CPT-70700 Level 3 Est. Patient 12:42:38 MINE SAFETY DIRECTOR Yolnade Lindsay MD [facility] CPT-85228 Level 3 Est. Patient 11:54:49 MINE SAFETY DIRECTOR Des Hines MD [facility] CPT-02463 Level 3 Est. Patient 17:06:38 CDT Dewayne PERAZA [facility] Procedures Code Procedure Name Date Entry Date Standard Description [id number] Event Monitor - MC Transmission 09:12:32 CDT 08/06 [id number] Event Monitor - MC review and interp 09:12:32 CDT [id number] Event Monitor - MC recording 09:12:32 CDT CPT-52774 EKG Trac and Interp 16:50:22 CDT CPT-J1030 Depo Medrol 40 mg (Methyl Prednisolone Acetate) 17:05: 54 CDT CPT-J1100 Decadron 4mg (Dexamethasone) 17:05:54 CDT CPT-63250 Abx/Therapy Injection 17:05:54 CDT CPT-J1100 Decadron 4mg (Dexamethasone) 16:55:28 CDT CPT-J1030 Depo Medrol 40 mg (Methyl Prednisolone Acetate) 16:55: 28 CDT CPT-84572 Ankle Complete - Min 3V 15:58:50 CDT CPT-38688 Knee 3V 15:58:50 CDT CPT-63263 Hip comp min 2V 15:58:50 CDT CPT-J2270 Morphine Sulfate 10 mg 14:25:44 MINE SAFETY DIRECTOR CPT-J2550 Phenergan 12.5 mg (Promethazine) 14:25:44 MINE SAFETY DIRECTOR CPT-01207 Abx/Therapy Injection 14:25:44 MINE SAFETY DIRECTOR CPT-J2550 Phenergan 12.5 mg (Promethazine) 14:08:03 MINE SAFETY DIRECTOR CPT-J2270 Morphine Sulfate 10 mg 14:08:03 MINE SAFETY DIRECTOR CPT-00845 Bladder Scan 15:00:38 CDT CPT-TCMM Transitional Care Mgmt-Moderate 09:52:22 CDT CPT-J1030 Depo Medrol 40 mg (Methyl Prednisolone Acetate) 10:55: 18 CDT CPT-J1100 Decadron 4mg (Dexamethasone) 10:55:18 CDT CPT-58642 Abx/Therapy Injection 10:55:18 CDT CPT-J1030 Depo Medrol 40 mg (Methyl Prednisolone Acetate) 10:22: 32 CDT CPT-J1100 Decadron 4mg (Dexamethasone) 10:22:32 CDT CPT-71175 Postop F/U Visit 14:37:13 CDT CPT-23068 Ankle Complete - Min 3V 17:11:58 CDT CPT-56542 Foot comp min 3V 17:11:58 CDT CPT-12703 Bladder Scan 09:56:58 CDT CPT-25892 Postop F/U Visit 09:56:58 CDT CPT-85068 Cystoscopy 09:02:42 CDT CPT-26168 Bladder Scan 09:02:42 CDT CPT-02001 Abd single AP View 16:00:35 CDT CPT-89553 Administration single or combination vaccine inc oral 10 :15:43 CDT CPT-11324 Influenza split virus > age 3 10:15:43 CDT CPT-71379 Nail Avulsion 09:24:57 CDT CPT-OV Office Visit 11:15:41 CDT CPT-20784 Abx/Therapy Injection 10:51:30 CDT CPT-J3301 Kenalog 40 mg (Triamcinolone Acetonide) 10:25:12 CDT CPT-J1100 Decadron 4mg (Dexamethasone) 10:25:12 CDT CPT-67806 Anoscopy diagnostic 10:36:12 CDT CPT-OV Office Visit 15:34:31 CDT CPT-31557 Abx/Therapy Injection 08:21:15 MINE SAFETY DIRECTOR CPT-J1885 Toradol 60 mg (Ketorolac) 10:46:35 MINE SAFETY DIRECTOR CPT-OV Office Visit 19:51:16 MINE SAFETY DIRECTOR CPT-18011 Spec Collection and Handling Fee 14:34:18 MINE SAFETY DIRECTOR CPT-PV Prev. Care Visit 14:19:18 MINE SAFETY DIRECTOR CPT-98425 Postop F/U Visit 14:47:51 MINE SAFETY DIRECTOR CPT-21014 Postop F/U Visit 15:15:14 MINE SAFETY DIRECTOR CPT-59568 Postop F/U Visit 14:41:43 CDT CPT-77735 Postop F/U Visit 15:47:46 CDT CPT-OV Office Visit 15:27:23 CDT CPT-OV Office Visit 17:20:34 CDT CPT-15953 Abx/Therapy Injection 15:05:57 CDT CPT-J1100 Decadron 8mg (Dexamethasone) 14:44:57 CDT CPT-J1040 Depo Medrol 80 mg (Methyl Prednisolone Acetate) 14:44: 57 CDT CPT-JTINJ Joint Injection 10:17:37 CDT CPT-84701 Administration 2+ single or combination vaccines inc oral 13:01:46 MINE SAFETY DIRECTOR CPT-24650 Administration single or combination vaccine inc oral 13 :01:46 MINE SAFETY DIRECTOR CPT-09552 Pneumovax 13:01:46 MINE SAFETY DIRECTOR CPT-90738 Influenza split virus > age 3 13:01:46 MINE SAFETY DIRECTOR CPT-32861 Administration single or combination vaccine inc oral 08 :56:49 CDT CPT-92054 Tdap 08:56:49 CDT
--- OUTSIDE RECORDS SUMMARY | 2017-03-21 21:25 | XMS REPORT | Clinical Summary ---
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 Inactive Yolande Linsday MD PhD 2013 Flank pain, left ICD-789.09 [...] pill by mouth daily, for edema FUROSEMIDE [id number] No Longer Active Yolande Lindsay MD PhD Active FISH OIL 1000 MG CAPS 1 pill daily x 1 week, then 2 pills daily x 1 week, then 3 pills daily x 1 week, then 4 pills daily OMEGA-3 FATTY ACIDS 25102089325 Active Yolande Lindsay MD PhD Active NIACIN 500 MG TABS 1 pill by mouth nightly x 1 week, then 2 pills x 1 week, then 3 pills x 1 week, then 4 pills nightly - take after evening meal, with applesauce or an apple NIACIN 74625216676 Active Yolande Lindsay MD PhD Active ATORVASTATIN CALCIUM 10 MG TABS 1 pill by mouth daily, for cholesterol 09/06 ATORVASTATIN CALCIUM 44796707253 Active Yolande Lindsay MD PhD Active CALCIUM 600+D PLUS MINERALS 600-400 MG-UNIT ORAL CHEW 1 tab by mouth daily CALCIUM CARBONATE-VIT D-MIN 65401877749 No Longer Active Yolande Lindsay MD PhD Active CYCLOBENZAPRINE HCL 10 MG TABS 1 tablet by mouth three times daily as needed for muscle spasm/pain CYCLOBENZAPRINE HCL 89115858816 Active Yolande Lindsay MD PhD Active ONDANSETRON 4 MG TBDP 1 q4h PRN nausea ONDANSETRON 18959116436 Active Yolande Lindsay MD PhD Active ADULT ASPIRIN EC LOW STRENGTH 81 MG TBEC Take 1 tablet by mouth daily 2014 ASPIRIN 23137197654 No Longer Active Yolande Lindsay MD PhD Active ZOFRAN ODT 4 MG TBDP 1 pill dissolved by mouth every 4 hours if needed for nausea ONDANSETRON 02611134486 No Longer Active Yolande Lindsay MD PhD Active CEFTIN 500 MG TAB 1 twice a day CEFUROXIME AXETIL 77806861810 No Longer Active Yolande Lindsay MD PhD Active ALBUTEROL SULFATE 0.083 % NEBU SOLN one vial per nebulizer every 4-6 hours as needed ALBUTEROL SULFATE 21043041731 No Longer Active Alexis Ordaz MD Active DOXYCYCLINE HYCLATE 100 MG CAP 1 cap by mouth twice daily DOXYCYCLINE HYCLATE 60457774319 No Longer Active Yolande Lindsay MD PhD Active CYCLOBENZAPRINE HCL 10 MG TABS 1/2 - 1 tab by mouth three times daily if needed for spasms/pain CYCLOBENZAPRINE HCL 78064445658 No Longer Active Yolande Lindsay MD PhD Active TRILEPTAL 600 MG TABS Take one 1/2 tablet in Am and 1 tablet at night OXCARBAZEPINE 79093981524 Active Yolande Lindsay MD PhD Active AZITHROMYCIN 250 MG TABS 2 pills on day 1, then 1 pill daily x 4 days AZITHROMYCIN 97922046833 No Longer Active Yolande Lindsay MD PhD Active XOPENEX 1.25 MG/3ML NEBU 1 neb every 4 hours if needed for cough/congestion LEVALBUTEROL HCL 79628588571 No Longer Active Yolande Lindsay MD PhD Active DOXYCYCLINE HYCLATE 100 MG TAB 1 tab twice a day for 14 days 2013 DOXYCYCLINE HYCLATE 18606205403 No Longer Active Yolande Lindsay MD PhD Active LEVOTHYROXINE SODIUM 75 MCG TABS Take 1 tab daily LEVOTHYROXINE SODIUM 78958237538 Active Yolande Lindsay MD PhD Active PREVACID 30 MG CPDR Take 1 tablet by mouth daily-PRN LANSOPRAZOLE 06014340239 No Longer Active Yolande Lindsay MD PhD Active PA VITAMIN D-3 2000 UNIT CAPS 1 CAP PO DAILY CHOLECALCIFEROL 10016300354 No Longer Active Yolande Lindsay MD PhD Active CEFDINIR 300 MG CAPS by mouth twice a day CEFDINIR 10014633607 No Longer Active Gab Padron MD Active TOPAMAX 50 MG TABS 1 PO twice daily TOPIRAMATE 52460758697 Active Yolande Lindsay MD PhD Active AZITHROMYCIN 250 MG TABS 2 po qd x 1 day, then 1 po qd x 4 days AZITHROMYCIN 23328967458 No Longer Active Yolande Lindsay MD PhD Active DICLOFENAC SODIUM 75 MG TBEC 1 tablet by q 12 hours PRN headaches DICLOFENAC SODIUM 87793355279 No Longer Active Yolande Lindsay MD PhD Active FLONASE 50 MCG/ACT SUSP 1 spray each nostril am and hs FLUTICASONE PROPIONATE 00283523962 No Longer Active Todd Callaway MD Active ANUSOL-HC 25 MG SUPPOSITORY 1 rectally twice a day as needed for hemorrhoids HYDROCORTISONE JAYDEN (RECTAL) 17975236490 No Longer Active Yolande Lindsay MD PhD Active ANUSOL-HC 25 MG SUPPOSITORY 1 suppository rectally each evening as needed for anal fissure HYDROCORTISONE JAYDEN (RECTAL) 07998923588 No Longer Active LONNIE Iglesias Active VALIUM 5 MG TAB 1 po 30 minutes prior to your MRI DIAZEPAM 17432611487 No Longer Active LONNIE Iglesias Active METHOCARBAMOL 750 MG TABS 1 PO QID PRN METHOCARBAMOL 19685076238 No Longer Active Daphne Wetzel APRN Active NITROSTAT 0.4 MG SUBL as directed NITROGLYCERIN 25698210895 No Longer Active Rodrigo Sarah APRN Active ROBAXIN-750 750 MG TABS 2 four times a day for 3 days as needed for muscle spasm, then 1 four times a day as needed METHOCARBAMOL 41032789862 No Longer Active Rodrigo Sarah APRN Active HYDROCODONE-ACETAMINOPHEN 5-325 MG TABS 1 q 4-6 hrs prn HYDROCODONE-ACETAMINOPHEN 43640202053 No Longer Active Rodrigo Sarah APRN Active VERAPAMIL HCL CR 180 MG CR-TABS TAKE 1 TAB DAILY VERAPAMIL HCL 51571500724 No Longer Active Yolande Lindsay MD PhD Active BACTRIM DS 800-160 MG TAB 1 tab by mouth twice daily TRIMETHOPRIM-SULFAMETHOXAZOLE 08590457303 No Longer Active Yolande Lindsay MD PhD Active NEXIUM 40 MG PACK 1 by mouth daily ESOMEPRAZOLE MAGNESIUM 52523657800 No Longer Active Des Hines MD Active EPIPEN 2-CHARLETTE 0.3 MG/0.3ML OMARI as need for allergic reaction EPINEPHRINE 20056800645 Active Yolande Lindsay MD PhD Active LISINOPRIL 10 MG TABS 1 PO Q D FOR BP LISINOPRIL 63867608688 Active Yolande Lindsay MD PhD Active NEXIUM 40 MG CPDR 1 PO Q D DAY ESOMEPRAZOLE MAGNESIUM 92170657377 No Longer Active Sadia Perry RN Active ALBUTEROL SULFATE 0.083 % NEBU SOLN one vial per nebulizer every 4-6 hours as needed ALBUTEROL SULFATE 0.083 % NEBU SOLN 031180 ALBUTEROL SULFATE Inactive ANUSOL-HC 25 MG SUPPOSITORY 1 suppository rectally each evening as needed for anal fissure ANUSOL-HC 25 MG SUPPOSITORY 3297430 HYDROCORTISONE JAYDEN (RECTAL) Inactive ANUSOL-HC 25 MG SUPPOSITORY 1 rectally twice a day as needed for hemorrhoids ANUSOL-HC 25 MG SUPPOSITORY 6060117 HYDROCORTISONE JAYDEN (RECTAL) Inactive BACTRIM DS 800-160 MG TAB 1 tab by mouth twice daily BACTRIM DS 800-160 MG TAB TRIMETHOPRIM-SULFAMETHOXAZOLE Inactive CEFTIN 500 MG TAB 1 twice a day CEFTIN 500 MG TAB 745828 CEFUROXIME AXETIL Inactive CYCLOBENZAPRINE HCL 10 MG TABS 1/2 - 1 tab by mouth three times daily if needed for spasms/pain CYCLOBENZAPRINE HCL 10 MG TABS 595221 CYCLOBENZAPRINE HCL Inactive DOXYCYCLINE HYCLATE 100 MG CAP 1 cap by mouth twice daily DOXYCYCLINE HYCLATE 100 MG CAP 835760 DOXYCYCLINE HYCLATE Inactive DOXYCYCLINE HYCLATE 100 MG TAB 1 tab twice a day for 14 days 2013 DOXYCYCLINE HYCLATE 100 MG TAB 666324 DOXYCYCLINE HYCLATE Inactive FUROSEMIDE 20 MG TABS 1 pill by mouth daily, for edema FUROSEMIDE 20 MG TABS 793159 FUROSEMIDE Inactive METHOCARBAMOL 750 MG TABS 1 PO QID PRN METHOCARBAMOL 750 MG TABS 621016 METHOCARBAMOL Inactive NITROSTAT 0.4 MG SUBL as directed NITROSTAT 0.4 MG SUBL NITROGLYCERIN Inactive ROBAXIN-750 750 MG TABS 2 four times a day for 3 days as needed for muscle spasm, then 1 four times a day as needed ROBAXIN-750 750 MG TABS 19780706 METHOCARBAMOL Inactive VALIUM 5 MG TAB 1 po 30 minutes prior to your MRI VALIUM 5 MG TAB 715117 DIAZEPAM Inactive VERAPAMIL HCL CR 180 MG CR-TABS TAKE 1 TAB DAILY VERAPAMIL HCL CR 180 MG CR-TABS VERAPAMIL HCL Inactive PREVACID 30 MG CPDR Take 1 tablet by mouth daily-PRN PREVACID 30 MG CPDR 911914 LANSOPRAZOLE Inactive DICLOFENAC SODIUM 75 MG TBEC 1 tablet by q 12 hours PRN headaches DICLOFENAC SODIUM 75 MG TBEC 206581 DICLOFENAC SODIUM Inactive AZITHROMYCIN 250 MG TABS 2 pills on day 1, then 1 pill daily x 4 days AZITHROMYCIN 250 MG TABS 1893661 AZITHROMYCIN Inactive AZITHROMYCIN 250 MG TABS 2 po qd x 1 day, then 1 po qd x 4 days AZITHROMYCIN 250 MG TABS 4603680 AZITHROMYCIN Inactive ADULT ASPIRIN EC LOW STRENGTH 81 MG TBEC Take 1 tablet by mouth daily 2014 ADULT ASPIRIN EC LOW STRENGTH 81 MG TBEC 589483 ASPIRIN Inactive CEFDINIR 300 MG CAPS by mouth twice a day CEFDINIR 300 MG CAPS 846154 CEFDINIR Inactive ZOFRAN ODT 4 MG TBDP 1 pill dissolved by mouth every 4 hours if needed for nausea ZOFRAN ODT 4 MG TBDP 380924 ONDANSETRON Inactive XOPENEX 1.25 MG/3ML NEBU 1 neb every 4 hours if needed for cough/congestion XOPENEX 1.25 MG/3ML NEBU 941586 LEVALBUTEROL HCL Inactive FLONASE 50 MCG/ACT SUSP 1 spray each nostril am and hs FLONASE 50 MCG/ACT SUSP 632065 FLUTICASONE PROPIONATE Inactive HYDROCODONE-ACETAMINOPHEN 5-325 MG TABS 1 q 4-6 hrs prn HYDROCODONE-ACETAMINOPHEN 5-325 MG TABS 789424 HYDROCODONE-ACETAMINOPHEN Inactive NEXIUM 40 MG PACK 1 by mouth daily NEXIUM 40 MG PACK ESOMEPRAZOLE MAGNESIUM Inactive CALCIUM 600+D PLUS MINERALS 600-400 MG-UNIT ORAL CHEW 1 tab by mouth daily CALCIUM 600+D PLUS MINERALS 600-400 MG-UNIT ORAL CHEW CALCIUM CARBONATE-VIT D-MIN Inactive PA VITAMIN D-3 2000 UNIT CAPS 1 CAP PO DAILY PA VITAMIN D-3 2000 UNIT CAPS CHOLECALCIFEROL Inactive Immunizations Vaccine Administration Date Value Standard Description Seasonal influenza vaccine, injectable, containing preservative, for > 3 years old (Afluria, FluLaval, Fluzone, Fluvirin, Fluarix, Agriflu(>=18 yo)) Fluzone (>3 yrs.) [JHH302] Influenza, seasonal, injectable influenza immunization (Flu Vax) has been administered Influenza - Unspecified Formulation [CVX88] influenza virus vaccine, unspecified formulation Seasonal influenza vaccine, injectable, containing preservative, for > 3 years old (Afluria, FluLaval, Fluzone, Fluvirin, Fluarix, Agriflu(>=18 yo)) Fluzone (>3 yrs.) [PAR787] Influenza, seasonal, injectable pneumococcal immunization administered Pneumovax 23 [CVX33] pneumococcal polysaccharide vaccine, 23 valent dT (Diphtheria and Tetanus) booster given given Td(adult) unspecified formulation Boostrix (Tetanus toxoid, reduced diphtheria toxoid and acellular pertussis vaccine, adsorbed), booster Boostrix [UGK145] tetanus toxoid, reduced diphtheria toxoid, and acellular [...] Panel - Chemistry sodium, serum 145 mmol/L 177-037 6338/06/22 potassium, serum 3.9 mmol/L 3.5-5.2 chloride, serum 109 mmol/L 98-107 carbon dioxide, venous blood 23.4 mmol/L 21.0-32.0 blood glucose 92 mg/dL 65-110 calcium, serum 8.2 mg/dL 8.5-10.1 urea nitrogen, blood 24 mg/dL 7-18 creatinine, serum 1.30 mg/dL 0.60-1.30 Lab Report: [facility] Advanced Lipid and Inlammation Panel /19196 - Chemistry cholesterol, serum 198 mg/dL 555-990 7981/04/30 HDL cholesterol, serum 65 mg/dL > OR=46 triglyceride, serum, fasting 82 mg/dL LDL cholesterol, serum 117 mg/dL cholesterol/HDL ratio, serum 3.0 calc < OR=5.0 Lab Report: CBC W/DIFF, Basic Metabolic Panel - Chemistry sodium, serum 144 mmol/L 858-786 2502/01/21 potassium, serum 4.2 mmol/L 3.5-5.2 chloride, serum [...] Panel - Chemistry sodium, serum 144 mmol/L 025-430 9865/12/15 potassium, serum 5.4 mmol/L 3.5-5.2 chloride, serum [...] UA - Chemistry sodium, serum 143 mmol/L 359-831 3071/10/24 potassium, serum 3.9 mmol/L 3.5-5.2 chloride, serum [...] 51 mg/dL 30-200 cholesterol, serum 173 mg/dL 943-347 3482/04/28 HDL cholesterol, serum 63 mg/dL 32-96 LDL [...] 0-19 Encounters Code Encounter Date Provider Facility CPT-27980 Level 4 Est. Patient 21:29:26 CDT Yolande Lindsay MD PhD [facility] CPT-70110 Level 3 Est. Patient 07:37:45 CDT Yolande Lindsay MD PhD [facility] CPT-11835 Level 3 Est. Patient 17:03:46 CDT Yolande Lindsay MD PhD [facility] CPT-17261 Level 4 Est. Patient 20:02:13 BOTTLER HELPER Yolande Lindsay MD PhD [facility] CPT-05691 Level 3 Est. Patient 16:02:07 BOTTLER HELPER Alexis Ordaz MD [facility] CPT-25077 Level 3 Est. Patient 12:41:24 BOTTLER HELPER Yolande Lindsay MD PhD [facility] CPT-93521 Level 3 Est. Patient 15:41:20 BOTTLER HELPER Yolande Lindsay MD [facility] CPT-52324 Level 3 Est. Patient 13:20:02 BOTTLER HELPER Yolande Lindsay MD [facility] [place]-28719 Level 3 Est. Patient 15:00:38 CDT Jared Og MD [facility]-58859 Level 3 Est. Patient 10:22:32 CDT Yolande Lindsay MD [facility] CPT-04270 Level 3 Est. Patient 17:12:58 CDT Yolande Lindsay MD [facility] [place]-23230 Level 4 Est. Patient 13:30:58 CDT Yolande Lindsay MD [facility]-71157 Level 4 New Patient 09:02:42 CDT Jared Og MD [facility]-01578 Level 3 Est. Patient 08:19:07 CDT Yolande Lindsay MD [facility] CPT-41402 Level 3 Est. Patient 12:00:13 BOTTLER HELPER Gab Padron MD [facility] [place]-18516 Level 3 Est. Patient 16:15:23 BOTTLER HELPER Yolande Lindsay MD [facility] CPT-71426 Level 2 Est. Patient 19:47:15 CDT Yolande Lindsay MD [facility] CPT-21733 Level 3 Est. Patient 21:38:31 CDT Yolande Lindsay MD [facility] [place]-87660 Level 3 Est. Patient 10:25:12 CDT Adiel PERAZA [facility] CPT-54631 Level 4 Est. Patient 10:51:58 CDT Yolande Lindsay MD [facility] [place]-76533 Level 3 Est. Patient 14:04:55 BOTTLER HELPER Rodrigo Sarah [facility] CPT-22581 Level 3 Est. Patient 10:46:35 BOTTLER HELPER Rodrigo Sarah [facility] CPT-23965 Level 3 Est. Patient 14:24:37 BOTTLER HELPER Yolande Lindsay MD [facility] CPT-37682 Level 3 Est. Patient 17:41:58 BOTTLER HELPER Yolande Lindsay MD [facility] CPT-14597 Level 2 Est. Patient 22:01:41 BOTTLER HELPER Rodrigo Sarah [facility] CPT-51840 Level 2 Est. Patient 22:01:11 BOTTLER HELPER Rodrigo Sarah [facility] CPT-41818 Level 3 Est. Patient 10:12:29 BOTTLER HELPER Rodrigo Sarah [facility] CPT-00829 Level 3 Est. Patient 11:05:44 CDT Alexis Ordaz MD [facility] CPT-44446 Level 3 Est. Patient 14:57:20 CDT Yolande Lindsay MD [facility] CPT-62854 Level 3 Est. Patient 14:40:57 CDT Yolande Lindsay MD [facility] CPT-00964 Level 3 Est. Patient 20:55:40 CDT Yolande Lindsay MD [facility] CPT-17278 Level 3 Est. Patient 12:42:38 BOTTLER HELPER Yolande Lindsay MD [facility] CPT-36146 Level 3 Est. Patient 11:54:49 BOTTLER HELPER Des Hines MD [facility] CPT-98137 Level 3 Est. Patient 17:06:38 CDT Dewayne PERAZA [facility] Procedures Code Procedure Name Date Entry Date Standard Description [id number] Event Monitor - MC Transmission 09:12:32 CDT 08/06 [id number] Event Monitor - MC review and interp 09:12:32 CDT [id number] Event Monitor - MC recording 09:12:32 CDT CPT-09716 EKG Trac and Interp 16:50:22 CDT CPT-J1030 Depo Medrol 40 mg (Methyl Prednisolone Acetate) 17:05: 54 CDT CPT-J1100 Decadron 4mg (Dexamethasone) 17:05:54 CDT CPT-05272 Abx/Therapy Injection 17:05:54 CDT CPT-J1100 Decadron 4mg (Dexamethasone) 16:55:28 CDT CPT-J1030 Depo Medrol 40 mg (Methyl Prednisolone Acetate) 16:55: 28 CDT CPT-63580 Ankle Complete - Min 3V 15:58:50 CDT CPT-66073 Knee 3V 15:58:50 CDT CPT-79486 Hip comp min 2V 15:58:50 CDT CPT-J2270 Morphine Sulfate 10 mg 14:25:44 BOTTLER HELPER CPT-J2550 Phenergan 12.5 mg (Promethazine) 14:25:44 BOTTLER HELPER CPT-44911 Abx/Therapy Injection 14:25:44 BOTTLER HELPER CPT-J2550 Phenergan 12.5 mg (Promethazine) 14:08:03 BOTTLER HELPER CPT-J2270 Morphine Sulfate 10 mg 14:08:03 BOTTLER HELPER CPT-45345 Bladder Scan 15:00:38 CDT CPT-TCMM Transitional Care Mgmt-Moderate 09:52:22 CDT CPT-J1030 Depo Medrol 40 mg (Methyl Prednisolone Acetate) 10:55: 18 CDT CPT-J1100 Decadron 4mg (Dexamethasone) 10:55:18 CDT CPT-83765 Abx/Therapy Injection 10:55:18 CDT CPT-J1030 Depo Medrol 40 mg (Methyl Prednisolone Acetate) 10:22: 32 CDT CPT-J1100 Decadron 4mg (Dexamethasone) 10:22:32 CDT CPT-93483 Postop F/U Visit 14:37:13 CDT CPT-93396 Ankle Complete - Min 3V 17:11:58 CDT CPT-29211 Foot comp min 3V 17:11:58 CDT CPT-25700 Bladder Scan 09:56:58 CDT CPT-63293 Postop F/U Visit 09:56:58 CDT CPT-41274 Cystoscopy 09:02:42 CDT CPT-23408 Bladder Scan 09:02:42 CDT CPT-39203 Abd single AP View 16:00:35 CDT CPT-74255 Administration single or combination vaccine inc oral 10 :15:43 CDT CPT-36498 Influenza split virus > age 3 10:15:43 CDT CPT-57068 Nail Avulsion 09:24:57 CDT CPT-OV Office Visit 11:15:41 CDT CPT-77351 Abx/Therapy Injection 10:51:30 CDT CPT-J3301 Kenalog 40 mg (Triamcinolone Acetonide) 10:25:12 CDT CPT-J1100 Decadron 4mg (Dexamethasone) 10:25:12 CDT CPT-10841 Anoscopy diagnostic 10:36:12 CDT CPT-OV Office Visit 15:34:31 CDT CPT-55525 Abx/Therapy Injection 08:21:15 BOTTLER HELPER CPT-J1885 Toradol 60 mg (Ketorolac) 10:46:35 BOTTLER HELPER CPT-OV Office Visit 19:51:16 BOTTLER HELPER CPT-80860 Spec Collection and Handling Fee 14:34:18 BOTTLER HELPER CPT-PV Prev. Care Visit 14:19:18 BOTTLER HELPER CPT-20931 Postop F/U Visit 14:47:51 BOTTLER HELPER CPT-64435 Postop F/U Visit 15:15:14 BOTTLER HELPER CPT-76595 Postop F/U Visit 14:41:43 CDT CPT-10660 Postop F/U Visit 15:47:46 CDT CPT-OV Office Visit 15:27:23 CDT CPT-OV Office Visit 17:20:34 CDT CPT-72581 Abx/Therapy Injection 15:05:57 CDT CPT-J1100 Decadron 8mg (Dexamethasone) 14:44:57 CDT CPT-J1040 Depo Medrol 80 mg (Methyl Prednisolone Acetate) 14:44: 57 CDT CPT-JTINJ Joint Injection 10:17:37 CDT CPT-30193 Administration 2+ single or combination vaccines inc oral 13:01:46 BOTTLER HELPER CPT-32310 Administration single or combination vaccine inc oral 13 :01:46 BOTTLER HELPER CPT-75465 Pneumovax 13:01:46 BOTTLER HELPER CPT-98106 Influenza split virus > age 3 13:01:46 BOTTLER HELPER CPT-33080 Administration single or combination vaccine inc oral 08 :56:49 CDT CPT-27699 Tdap 08:56:49 CDT
--- OUTSIDE RECORDS SUMMARY | 2017-03-21 21:26 | XMS REPORT | Clinical Summary ---
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 FOOT PAIN, RIGHT ICD-729.5 Inactive Yolande Lindsay [...] tab by mouth daily CALCIUM CARBONATE-VIT D-MIN 16827941545 Active Yolande Lindsay MD PhD Active ONDANSETRON 4 MG TBDP 1 q4h PRN nausea ONDANSETRON 44133121932 Active Yolande Lindsay MD PhD Active ADULT ASPIRIN EC LOW STRENGTH 81 MG TBEC Take 1 tablet by mouth daily 2014 ASPIRIN 68061893259 No Longer Active Yolande Lindsay MD PhD Active ZOFRAN ODT 4 MG TBDP 1 pill dissolved by mouth every 4 hours if needed for nausea ONDANSETRON 18252681417 No Longer Active Yolande Lindsay MD PhD Active CEFTIN 500 MG TAB 1 twice a day CEFUROXIME AXETIL 23253781311 No Longer Active Yolande Lindsay MD PhD Active ALBUTEROL SULFATE 0.083 % NEBU SOLN one vial per nebulizer every 4-6 hours as needed ALBUTEROL SULFATE 84480525525 No Longer Active Alexis Ordaz MD Active DOXYCYCLINE HYCLATE 100 MG CAP 1 cap by mouth twice daily DOXYCYCLINE HYCLATE 93330423286 No Longer Active Yolande Lindsay MD PhD Active CYCLOBENZAPRINE HCL 10 MG TABS 1/2 - 1 tab by mouth three times daily if needed for spasms/pain CYCLOBENZAPRINE HCL 65252883369 No Longer Active Yolande Lindsay MD PhD Active TRILEPTAL 600 MG TABS Take one 1/2 tablet in Am and 1 tablet at night OXCARBAZEPINE 12479376013 Active Yolande Lindsay MD PhD Active AZITHROMYCIN 250 MG TABS 2 pills on day 1, then 1 pill daily x 4 days AZITHROMYCIN 61065237190 No Longer Active Yolande Lindsay MD PhD Active XOPENEX 1.25 MG/3ML NEBU 1 neb every 4 hours if needed for cough/congestion LEVALBUTEROL HCL 31046736921 No Longer Active Yolande Lindsay MD PhD Active DOXYCYCLINE HYCLATE 100 MG TAB 1 tab twice a day for 14 days 2013 DOXYCYCLINE HYCLATE 65491490314 No Longer Active Yolande Lindsay MD PhD Active LEVOTHYROXINE SODIUM 75 MCG TABS Take 1 tab daily LEVOTHYROXINE SODIUM 73009563909 Active Yolande Lindsay MD PhD Active PREVACID 30 MG CPDR Take 1 tablet by mouth daily-PRN LANSOPRAZOLE 70837028023 No Longer Active Yolande Lindsay MD PhD Active PA VITAMIN D-3 2000 UNIT CAPS 1 CAP PO DAILY CHOLECALCIFEROL 88897744572 No Longer Active Yolande Lindsay MD PhD Active CEFDINIR 300 MG CAPS by mouth twice a day CEFDINIR 17649854504 No Longer Active Gab Padron MD Active TOPAMAX 50 MG TABS 1 PO twice daily TOPIRAMATE 42638658752 Active Yolande Lindsay MD PhD Active AZITHROMYCIN 250 MG TABS 2 po qd x 1 day, then 1 po qd x 4 days AZITHROMYCIN 82190635930 No Longer Active Yolande Lindsay MD PhD Active DICLOFENAC SODIUM 75 MG TBEC 1 tablet by q 12 hours PRN headaches DICLOFENAC SODIUM 90760047282 No Longer Active Yolande Lindsay MD PhD Active FLONASE 50 MCG/ACT SUSP 1 spray each nostril am and hs FLUTICASONE PROPIONATE 44573364409 No Longer Active Todd Callaway MD Active ANUSOL-HC 25 MG SUPPOSITORY 1 rectally twice a day as needed for hemorrhoids HYDROCORTISONE JAYDEN (RECTAL) 71314914667 No Longer Active Yolande Lindsay MD PhD Active ANUSOL-HC 25 MG SUPPOSITORY 1 suppository rectally each evening as needed for anal fissure HYDROCORTISONE JAYDNE (RECTAL) 95821558760 No Longer Active LONNIE Iglesias Active VALIUM 5 MG TAB 1 po 30 minutes prior to your MRI DIAZEPAM 97162181454 No Longer Active LONNIE Iglesias Active METHOCARBAMOL 750 MG TABS 1 PO QID PRN METHOCARBAMOL 68564723325 No Longer Active Daphne Wetzel APRN Active NITROSTAT 0.4 MG SUBL as directed NITROGLYCERIN 05281477918 No Longer Active Rodrigo Sarah APRN Active ROBAXIN-750 750 MG TABS 2 four times a day for 3 days as needed for muscle spasm, then 1 four times a day as needed METHOCARBAMOL 59851338217 No Longer Active Rodrigo Sarah APRN Active HYDROCODONE-ACETAMINOPHEN 5-325 MG TABS 1 q 4-6 hrs prn HYDROCODONE-ACETAMINOPHEN 63848520466 No Longer Active Rodrigo Sarah APRN Active VERAPAMIL HCL CR 180 MG CR-TABS TAKE 1 TAB DAILY VERAPAMIL HCL 88413509512 No Longer Active Yolande Lindsay MD PhD Active BACTRIM DS 800-160 MG TAB 1 tab by mouth twice daily TRIMETHOPRIM-SULFAMETHOXAZOLE 62611861385 No Longer Active Yolande Lindsay MD PhD Active NEXIUM 40 MG PACK 1 by mouth daily ESOMEPRAZOLE MAGNESIUM 87641036744 No Longer Active Des Hines MD Active EPIPEN 2-CHARLETTE 0.3 MG/0.3ML OMARI as need for allergic reaction EPINEPHRINE 31009364744 Active Yolande Lindsay MD PhD Active LISINOPRIL 10 MG TABS 1 PO Q D FOR BP LISINOPRIL 40331177002 Active Yolande Lindsay MD PhD Active NEXIUM 40 MG CPDR 1 PO Q D DAY ESOMEPRAZOLE MAGNESIUM 77159131231 No Longer Active Sadia Orlando MIGUEL Active NEXIUM 40 MG PACK 1 by mouth daily NEXIUM 40 MG PACK ESOMEPRAZOLE MAGNESIUM Inactive VERAPAMIL HCL CR 180 MG CR-TABS TAKE 1 TAB DAILY VERAPAMIL HCL CR 180 MG CR-TABS VERAPAMIL HCL Inactive HYDROCODONE-ACETAMINOPHEN 5-325 MG TABS 1 q 4-6 hrs prn HYDROCODONE-ACETAMINOPHEN 5-325 MG TABS 889580 HYDROCODONE-ACETAMINOPHEN Inactive ROBAXIN-750 750 MG TABS 2 four times a day for 3 days as needed for muscle spasm, then 1 four times a day as needed ROBAXIN-750 750 MG TABS 641434 METHOCARBAMOL Inactive NITROSTAT 0.4 MG SUBL as directed NITROSTAT 0.4 MG SUBL NITROGLYCERIN Inactive METHOCARBAMOL 750 MG TABS 1 PO QID PRN METHOCARBAMOL 750 MG TABS 574603 METHOCARBAMOL Inactive VALIUM 5 MG TAB 1 po 30 minutes prior to your MRI VALIUM 5 MG TAB 741552 DIAZEPAM Inactive ANUSOL-HC 25 MG SUPPOSITORY 1 suppository rectally each evening as needed for anal fissure ANUSOL-HC 25 MG SUPPOSITORY 2840235 HYDROCORTISONE JAYDEN (RECTAL) Inactive ANUSOL-HC 25 MG SUPPOSITORY 1 rectally twice a day as needed for hemorrhoids ANUSOL-HC 25 MG SUPPOSITORY 8294370 HYDROCORTISONE JAYDEN (RECTAL) Inactive FLONASE 50 MCG/ACT SUSP 1 spray each nostril am and hs FLONASE 50 MCG/ACT SUSP 607746 FLUTICASONE PROPIONATE Inactive DICLOFENAC SODIUM 75 MG TBEC 1 tablet by q 12 hours PRN headaches DICLOFENAC SODIUM 75 MG TBEC 371325 DICLOFENAC SODIUM Inactive PA VITAMIN D-3 2000 UNIT CAPS 1 CAP PO DAILY PA VITAMIN D-3 2000 UNIT CAPS CHOLECALCIFEROL Inactive PREVACID 30 MG CPDR Take 1 tablet by mouth daily-PRN PREVACID 30 MG CPDR 963544 LANSOPRAZOLE Inactive DOXYCYCLINE HYCLATE 100 MG TAB 1 tab twice a day for 14 days 2013 DOXYCYCLINE HYCLATE 100 MG TAB 823865 DOXYCYCLINE HYCLATE Inactive XOPENEX 1.25 MG/3ML NEBU 1 neb every 4 hours if needed for cough/congestion XOPENEX 1.25 MG/3ML NEBU LEVALBUTEROL HCL Inactive CYCLOBENZAPRINE HCL 10 MG TABS 1/2 - 1 tab by mouth three times daily if needed for spasms/pain CYCLOBENZAPRINE HCL 10 MG TABS 755413 CYCLOBENZAPRINE HCL Inactive ALBUTEROL SULFATE 0.083 % NEBU SOLN one vial per nebulizer every 4-6 hours as needed ALBUTEROL SULFATE 0.083 % NEBU SOLN 420995 ALBUTEROL SULFATE Inactive CEFTIN 500 MG TAB 1 twice a day CEFTIN 500 MG TAB 917924 CEFUROXIME AXETIL Inactive ZOFRAN ODT 4 MG TBDP 1 pill dissolved by mouth every 4 hours if needed for nausea ZOFRAN ODT 4 MG TBDP 460383 ONDANSETRON Inactive ADULT ASPIRIN EC LOW STRENGTH 81 MG TBEC Take 1 tablet by mouth daily 2014 ADULT ASPIRIN EC LOW STRENGTH 81 MG TBEC 508356 ASPIRIN Inactive BACTRIM DS 800-160 MG TAB 1 tab by mouth twice daily BACTRIM DS 800-160 MG TAB TRIMETHOPRIM-SULFAMETHOXAZOLE Inactive AZITHROMYCIN 250 MG TABS 2 po qd x 1 day, then 1 po qd x 4 days AZITHROMYCIN 250 MG TABS 3955044 AZITHROMYCIN Inactive CEFDINIR 300 MG CAPS by mouth twice a day CEFDINIR 300 MG CAPS 20020708 CEFDINIR Inactive AZITHROMYCIN 250 MG TABS 2 pills on day 1, then 1 pill daily x 4 days AZITHROMYCIN 250 MG TABS 1485702 AZITHROMYCIN Inactive DOXYCYCLINE HYCLATE 100 MG CAP 1 cap by mouth twice daily DOXYCYCLINE HYCLATE 100 MG CAP 19890510 DOXYCYCLINE HYCLATE Inactive Immunizations Vaccine Administration Date Value Standard Description Seasonal influenza vaccine, injectable, containing preservative, for > 3 years old (Afluria, FluLaval, Fluzone, Fluvirin, Fluarix, Agriflu(>=18 yo)) Fluzone (>3 yrs.) [AEG975] Influenza, seasonal, injectable influenza immunization (Flu Vax) has been administered Influenza - Unspecified Formulation [CVX88] influenza virus vaccine, unspecified formulation Seasonal influenza vaccine, injectable, containing preservative, for > 3 years old (Afluria, FluLaval, Fluzone, Fluvirin, Fluarix, Agriflu(>=18 yo)) Fluzone (>3 yrs.) [PSI180] Influenza, seasonal, injectable pneumococcal immunization administered Pneumovax 23 [CVX33] pneumococcal polysaccharide vaccine, 23 valent dT (Diphtheria and Tetanus) booster given given Td(adult) unspecified formulation Boostrix (Tetanus toxoid, reduced diphtheria toxoid and acellular pertussis vaccine, adsorbed), booster Boostrix [RQL588] tetanus toxoid, reduced diphtheria toxoid, and acellular [...] pressure, diastolic - 8462-4 67 mm[Hg] BP weldno blood pressure, systolic - 8480-6 121 mm[Hg] [...] systolic - 8480-6 113 mm[Hg] BP sys height E&M - 8302-2 52.5 [in_us] Bdy height pulse rate E&M - 8867-4 59 /min Heart rate temperature E&M 97.2 [degF] Body temperature weight E&M - 3141-9 220 [lb_av] Weight Measured Diagnostic Results Date Name [...] Panel - Chemistry sodium, serum 144 mmol/L 818-803 2054/01/21 potassium, serum 4.2 mmol/L 3.5-5.2 chloride, serum [...] Panel - Chemistry sodium, serum 144 mmol/L 769-396 6990/12/15 potassium, serum 5.4 mmol/L 3.5-5.2 chloride, serum [...] Metabolic Panel, FreeT4, TSH, UA - Chemistry protein, total urine random Negative mg/dL Negative RBC, urine, dipstick Negative Negative sodium, serum 143 mmol/L 400-464 0671/10/24 potassium, serum 3.9 mmol/L 3.5-5.2 chloride, serum [...] 0.87 ng/dL 0.76-1.46 TSH 0.78 m[iU]/mL 0.36-3.74 Lab Report: CBC, Comp. Metabolic Panel, FreeT4, [...] Metabolic Panel, FreeT4, TSH, UA - Urinalysis urine color Yellow Colorless;Lightyellow;Straw;Yellow appearance, urine Clear Clear specific gravity, urine 1.020 1.000-1.030 pH, urine, semiquantitative 6.0 5.0-8.5 urobilinogen, urine, semiquantitative (dipstick) 0.2 Normal leukocyte esterase, urine, by dipstick Negative Negative nitrite, urine, semiquantitative Negative Negative glucose, urine, semiquantitative Negative Negative ketones, urine, by test strip Negative Negative bilirubin, urine Negative Negative Lab Report: Lipid Panel - Chemistry triglyceride, serum, fasting 51 mg/dL 30-200 cholesterol, serum 173 mg/dL 474-197 1426/04/28 HDL cholesterol, serum 63 mg/dL 32-96 LDL cholesterol, serum 100 mg/dL 0-130 Lab Report: Lipid Panel, HEPATIC PANEL, MICROALBUMIN - Chemistry aspartate aminotransferase (SGOT), serum 16 U/L 15-37 alanine aminotransferase (SGPT), serum 19 U/L 12-78 bilirubin, serum, total 0.30 mg/dL 0.00-1.00 albumin/creatinine ratio, urine < 30 mg/g mg/g{creat} 0-29 Lab Report: Lipid Panel, HEPATIC PANEL, MICROALBUMIN - Lab microalbumin, urine 10 0-19 Office Visit: Followup cystoscopy and sling - Chemistry protein, total urine random negative mg/dL RBC, urine, dipstick negative Office Visit: Followup cystoscopy and sling - Urinalysis ketones, urine, by test strip negative bilirubin, urine negative glucose, urine, semiquantitative negative urinalysis, routine Clean Catch urine color yellow appearance, urine clear leukocyte esterase, urine, by dipstick negative nitrite, urine, semiquantitative negative urobilinogen, urine, semiquantitative (dipstick) negative protein, urine, semiquantitative (dipstick) negative pH, urine, semiquantitative 6 specific gravity, urine 1.010 Encounters Code Encounter Date Provider Facility [facility]-[id number] Level 3 Est. Patient 17:03:46 CDT Yolande Lindsay MD [facility]-41150 Level 4 Est. Patient 20:02:13 ASSOCIATION EXECUTIVE Yolande Lidnsay MD [facility]38592 Level 3 Est. Patient 16:02:07 ASSOCIATION EXECUTIVE Alexis Ordaz MD [facility]-45281 Level 3 Est. Patient 12:41:24 ASSOCIATION EXECUTIVE Yolande Lindsay MD [facility]37289 Level 3 Est. Patient 15:41:20 ASSOCIATION EXECUTIVE Yolande Lindsay MD [facility]-23881 Level 3 Est. Patient 13:20:02 ASSOCIATION EXECUTIVE Yolande Lindsay MD [facility]-65595 Level 3 Est. Patient 15:00:38 CDT Jared Og MD [facility]-84030 Level 3 Est. Patient 10:22:32 CDT Yolande Lindsay MD [facility]-96143 Level 3 Est. Patient 17:12:58 CDT Yolande Lindsay MD [facility]-54906 Level 4 Est. Patient 13:30:58 CDT Yolande Lindsay MD [facility] CPT-19782 Level 4 New Patient 09:02:42 CDT Jared Og MD [facility]-93310 Level 3 Est. Patient 08:19:07 CDT Yolande Lindsay MD [facility]-48856 Level 3 Est. Patient 12:00:13 ASSOCIATION EXECUTIVE Gab Padron MD [facility]-87854 Level 3 Est. Patient 16:15:23 ASSOCIATION EXECUTIVE Yolande Lindsay MD [facility]-67961 Level 2 Est. Patient 19:47:15 CDT Yolande Lindsay MD [facility]29384 Level 3 Est. Patient 21:38:31 CDT Yolande Lindsay MD [facility]-01513 Level 3 Est. Patient 10:25:12 CDT Adiel Harry [facility]-04338 Level 4 Est. Patient 10:51:58 CDT Yolande Lindsay MD [facility]-47446 Level 3 Est. Patient 14:04:55 ASSOCIATION EXECUTIVE Rodrigo Sarah [facility]-20822 Level 3 Est. Patient 10:46:35 ASSOCIATION EXECUTIVE Rodrigo Sarah [facility]-31213 Level 3 Est. Patient 14:24:37 ASSOCIATION EXECUTIVE Yolande Lindsay MD [facility]-42631 Level 3 Est. Patient 17:41:58 ASSOCIATION EXECUTIVE Yolande Lindsay MD [facility]-91037 Level 2 Est. Patient 22:01:41 ASSOCIATION EXECUTIVE Rodrigo Sarah [facility]-23243 Level 2 Est. Patient 22:01:11 ASSOCIATION EXECUTIVE Rodrigo Sarah [facility]-08173 Level 3 Est. Patient 10:12:29 ASSOCIATION EXECUTIVE Rodrigo Sarah [facility]-57726 Level 3 Est. Patient 11:05:44 CDT Alexis Ordaz MD [facility]-30433 Level 3 Est. Patient 14:57:20 CDT Yolande Lindsay MD [facility]-32059 Level 3 Est. Patient 14:40:57 CDT Yolande Lindsay MD [facility] CPT-18205 Level 3 Est. Patient 20:55:40 CDT Yolande Lindsay MD [facility] CPT-35993 Level 3 Est. Patient 12:42:38 ASSOCIATION EXECUTIVE Yolande Lindsay MD [facility] CPT-62927 Level 3 Est. Patient 11:54:49 ASSOCIATION EXECUTIVE Des Hines MD [facility] CPT-90246 Level 3 Est. Patient 17:06:38 CDT Dewayne PERAZA [facility] Procedures Code Procedure Name Date Entry Date Standard Description CPT-00816 EKG Trac and Interp 16:50:22 CDT CPT-J1030 Depo Medrol 40 mg (Methyl Prednisolone Acetate) 17:05: 54 CDT CPT-J1100 Decadron 4mg (Dexamethasone) 17:05:54 CDT CPT-38696 Abx/Therapy Injection 17:05:54 CDT CPT-J1100 Decadron 4mg (Dexamethasone) 16:55:28 CDT CPT-J1030 Depo Medrol 40 mg (Methyl Prednisolone Acetate) 16:55: 28 CDT CPT-34902 Ankle Complete - Min 3V 15:58:50 CDT CPT-96838 Knee 3V 15:58:50 CDT CPT-39694 Hip comp min 2V 15:58:50 CDT CPT-J2270 Morphine Sulfate 10 mg 14:25:44 ASSOCIATION EXECUTIVE CPT-J2550 Phenergan 12.5 mg (Promethazine) 14:25:44 ASSOCIATION EXECUTIVE CPT-95599 Abx/Therapy Injection 14:25:44 ASSOCIATION EXECUTIVE CPT-J2550 Phenergan 12.5 mg (Promethazine) 14:08:03 ASSOCIATION EXECUTIVE CPT-J2270 Morphine Sulfate 10 mg 14:08:03 ASSOCIATION EXECUTIVE CPT-49138 Bladder Scan 15:00:38 CDT CPT-TCMM Transitional Care Mgmt-Moderate 09:52:22 CDT CPT-J1030 Depo Medrol 40 mg (Methyl Prednisolone Acetate) 10:55: 18 CDT CPT-J1100 Decadron 4mg (Dexamethasone) 10:55:18 CDT CPT-62688 Abx/Therapy Injection 10:55:18 CDT CPT-J1030 Depo Medrol 40 mg (Methyl Prednisolone Acetate) 10:22: 32 CDT CPT-J1100 Decadron 4mg (Dexamethasone) 10:22:32 CDT CPT-21730 Postop F/U Visit 14:37:13 CDT CPT-27822 Ankle Complete - Min 3V 17:11:58 CDT CPT-16997 Foot comp min 3V 17:11:58 CDT CPT-47115 Bladder Scan 09:56:58 CDT CPT-85393 Postop F/U Visit 09:56:58 CDT CPT-79509 Cystoscopy 09:02:42 CDT CPT-11851 Bladder Scan 09:02:42 CDT CPT-95396 Abd single AP View 16:00:35 CDT CPT-46621 Administration single or combination vaccine inc oral 10 :15:43 CDT CPT-74213 Influenza split virus > age 3 10:15:43 CDT CPT-45610 Nail Avulsion 09:24:57 CDT CPT-OV Office Visit 11:15:41 CDT CPT-20497 Abx/Therapy Injection 10:51:30 CDT CPT-J3301 Kenalog 40 mg (Triamcinolone Acetonide) 10:25:12 CDT CPT-J1100 Decadron 4mg (Dexamethasone) 10:25:12 CDT CPT-74910 Anoscopy diagnostic 10:36:12 CDT CPT-OV Office Visit 15:34:31 CDT CPT-95175 Abx/Therapy Injection 08:21:15 ASSOCIATION EXECUTIVE CPT-J1885 Toradol 60 mg (Ketorolac) 10:46:35 ASSOCIATION EXECUTIVE CPT-OV Office Visit 19:51:16 ASSOCIATION EXECUTIVE CPT-07411 Spec Collection and Handling Fee 14:34:18 ASSOCIATION EXECUTIVE CPT-PV Prev. Care Visit 14:19:18 ASSOCIATION EXECUTIVE CPT-43199 Postop F/U Visit 14:47:51 ASSOCIATION EXECUTIVE CPT-56306 Postop F/U Visit 15:15:14 ASSOCIATION EXECUTIVE CPT-67757 Postop F/U Visit 14:41:43 CDT CPT-01214 Postop F/U Visit 15:47:46 CDT CPT-OV Office Visit 15:27:23 CDT CPT-OV Office Visit 17:20:34 CDT CPT-75639 Abx/Therapy Injection 15:05:57 CDT CPT-J1100 Decadron 8mg (Dexamethasone) 14:44:57 CDT CPT-J1040 Depo Medrol 80 mg (Methyl Prednisolone Acetate) 14:44: 57 CDT CPT-JTINJ Joint Injection 10:17:37 CDT CPT-14711 Administration 2+ single or combination vaccines inc oral 13:01:46 ASSOCIATION EXECUTIVE CPT-32409 Administration single or combination vaccine inc oral 13 :01:46 ASSOCIATION EXECUTIVE CPT-86870 Pneumovax 13:01:46 ASSOCIATION EXECUTIVE CPT-75390 Influenza split virus > age 3 13:01:46 ASSOCIATION EXECUTIVE CPT-69970 Administration single or combination vaccine inc oral 08 :56:49 CDT CPT-00106 Tdap 08:56:49 CDT
--- OUTSIDE RECORDS SUMMARY | 2017-03-21 21:28 | XMS REPORT | Clinical Summary ---
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 Jillina Frazellilian GENERAL TELLER 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 Anemia 285.9 Active Gab Padron MD Anemia, unspecified Conjunctivitis 372.30 Active Jillnacho Sarah APRN Conjunctivitis, unspecified Sinusitis 473.9 Active Silvestrellina Frazell GENERAL TELLER Unspecified sinusitis (chronic) Nonspecific syndrome suggestive of viral illness 079.99 Active Jillina Frazell GENERAL TELLER Unspecified viral infection Laryngitis 464.00 Active Jillina Frazell GENERAL TELLER Acute laryngitis without mention of obstruction Abdominal [...] Flank pain, left 789.09 Active Jillina Frazell GENERAL TELLER Abdominal pain, other specified site; multiple sites Abdominal pain, generalized 789.07 Active Jillina Farshadzell GENERAL TELLER Abdominal pain, generalized Back pain, thoracic region, left 724.1 Active Jillina Frazell GENERAL TELLER Pain in thoracic spine Abdominal pain, left [...] 1/2 tab daily for 2 days PREDNISONE 92745954809 No Longer Active Gab Padron MD Active ZOFRAN ODT 4 MG TBDP 1 po q6hr PRN Nausea ONDANSETRON 00300069228 Active Silvestrellina Tyrel GAUTAM Active IBUPROFEN 600 MG TAB 1 tablet by mouth every 6 hours for 7 days, then 1 tablet every 6 hours as needed. Take with food IBUPROFEN 95302795877 Active Jillina Frazell DAIN Active BACTRIM DS 800-160 MG TAB 1 tab by mouth twice daily TRIMETHOPRIM-SULFAMETHOXAZOLE 94177478415 No Longer Active Gab Padron MD Active ADVAIR DISKUS 250-50 MCG/DOSE AEPB 1 puff BID FLUTICASONE- SALMETEROL 94180850233 Active Rodrigo Sarah APRN Active LEVOTHYROXINE SODIUM 75 MCG TABS Take 1 tab daily LEVOTHYROXINE SODIUM 23254372962 No Longer Active Mariana HICKEYA Active SYNTHROID 88 MCG ORAL TABS Take one by mouth daily LEVOTHYROXINE SODIUM 58661905804 Active Mariana HICKEYA Active CHERATUSSIN AC 100-10 MG/5ML SYRP 1 tsp by mouth every 4 hours as needed for cough GUAIFENESIN-CODEINE 44962287767 No Longer Active Gab Padron MD Active POLYTRIM 69967-8.1 UNIT/ML-% SOLN 1 gtt to affected eye q3h x 7 days POLYMYXIN B-TRIMETHOPRIM 61508811545 No Longer Active Gab Padron MD Active FLUTICASONE PROPIONATE 50 MCG/ACT SUSP 1 to 2 sprays each nostril daily 04/21 FLUTICASONE PROPIONATE 28400463663 No Longer Active Gab Padron MD Active TRILEPTAL 600 MG TABS Take one 1 tablet in Am and 1 tablet at night OXCARBAZEPINE 53450992012 Active Gab Padron MD Active CEFDINIR 300 MG CAPS 1 po BID x 10 days CEFDINIR 87255942368 No Longer Active Rodrigo Sarah APRN Active CEFTIN 500 MG TAB 1 twice a day CEFUROXIME AXETIL 60910669032 No Longer Active Gab Padron MD Active AZITHROMYCIN 250 MG TABS 2 po qd x 1 day, then 1 po qd x 4 days AZITHROMYCIN 22606493941 No Longer Active Silvestrellnacho Sarah APRN Active CLARITIN 10 MG TAB 1 tablet by mouth daily as needed for allergies LORATADINE 45768991731 Active Silvestrellnacho Sarah APRN Active OXYCODONE HCL 5 MG ORAL CAPS 1 TAB PO Q HS OXYCODONE HCL 42338785037 No Longer Active Rodrigo Sarah APRN Active NIASPAN 500 MG ORAL CR-TABS 1 pill nightly x 1 week, then 2 pills nightly x 1 week, then 3 pills nightly x 1 week, then 4 pills nightly NIACIN (ANTIHYPERLIPIDEMIC) 38481555013 No Longer Active Silvestrebernabe Yenhossein GENERAL TELLER Active NIACIN 500 MG TABS 1 pill by mouth nightly x 1 week, then 2 pills x 1 week, then 3 pills x 1 week, then 4 pills nightly - take after evening meal, with applesauce or an apple NIACIN 09924374226 No Longer Active Yolande Lindsay MD PhD Active FISH OIL 1000 MG CAPS 3 pills daily OMEGA-3 FATTY ACIDS 31977666485 Active Yolande Lindsay MD PhD Active TRIAMCINOLONE ACETONIDE 0.1 % CREA apply bid sparingly to rash TRIAMCINOLONE ACETONIDE 68141227787 Active Yolande Lindsay MD PhD Active FUROSEMIDE 20 MG TAB 1 tablet by mouth daily FUROSEMIDE 70089429686 Active Tisha Lambert APRN Active LISINOPRIL 20 MG ORAL TABS 1 tab by mouth daily LISINOPRIL 99322914077 Active Gab Padron MD Active FUROSEMIDE 20 MG TABS 1 pill by mouth daily, for edema FUROSEMIDE 39952052477 No Longer Active Yolande Lindsay MD PhD Active ATORVASTATIN CALCIUM 10 MG TABS 1 pill by mouth daily, for cholesterol 09/06 ATORVASTATIN CALCIUM 66542895070 Active Gab Padron MD Active CALCIUM 600+D PLUS MINERALS 600-400 MG-UNIT ORAL CHEW 1 tab by mouth daily CALCIUM CARBONATE-VIT D-MIN 67553389785 No Longer Active oYlande Lindsay MD PhD Active CYCLOBENZAPRINE HCL 10 MG TABS 1 tablet by mouth three times daily as needed for muscle spasm/pain CYCLOBENZAPRINE HCL 12779214497 Active Yolande Lindsay MD PhD Active ONDANSETRON 4 MG TBDP 1 q4h PRN nausea ONDANSETRON 34033448506 Active Yolande Lindsay MD PhD Active ADULT ASPIRIN EC LOW STRENGTH 81 MG TBEC Take 1 tablet by mouth daily 2014 ASPIRIN 08810421484 No Longer Active Yolande Lindsay MD PhD Active ZOFRAN ODT 4 MG TBDP 1 pill dissolved by mouth every 4 hours if needed for nausea ONDANSETRON 94574127871 No Longer Active Yolande Lindsay MD PhD Active CEFTIN 500 MG TAB 1 twice a day CEFUROXIME AXETIL 54275794865 No Longer Active Yolande Lindsay MD PhD Active ALBUTEROL SULFATE 0.083 % NEBU SOLN one vial per nebulizer every 4-6 hours as needed ALBUTEROL SULFATE 19582843976 No Longer Active Alexis Ordaz MD Active DOXYCYCLINE HYCLATE 100 MG CAP 1 cap by mouth twice daily DOXYCYCLINE HYCLATE 53304273114 No Longer Active Yolande Lindsay MD PhD Active CYCLOBENZAPRINE HCL 10 MG TABS 1/2 - 1 tab by mouth three times daily if needed for spasms/pain CYCLOBENZAPRINE HCL 85496546225 No Longer Active Yolande Lindsay MD PhD Active AZITHROMYCIN 250 MG TABS 2 pills on day 1, then 1 pill daily x 4 days AZITHROMYCIN 39855007421 No Longer Active Yolande Lindsay MD PhD Active XOPENEX 1.25 MG/3ML NEBU 1 neb every 4 hours if needed for cough/congestion LEVALBUTEROL HCL 13789979648 No Longer Active Yolande Lindsay MD PhD Active DOXYCYCLINE HYCLATE 100 MG TAB 1 tab twice a day for 14 days 2013 DOXYCYCLINE HYCLATE 33687118917 No Longer Active Yolande Lindsay MD PhD Active PREVACID 30 MG CPDR Take 1 tablet by mouth daily-PRN LANSOPRAZOLE 74339132841 No Longer Active Yolande Lindsay MD PhD Active PA VITAMIN D-3 2000 UNIT CAPS 1 CAP PO DAILY CHOLECALCIFEROL 60801672563 No Longer Active Yolande Lindsay MD PhD Active CEFDINIR 300 MG CAPS by mouth twice a day CEFDINIR 28265501562 No Longer Active Gab Padron MD Active TOPAMAX 50 MG TABS 1 PO twice daily TOPIRAMATE 45560824162 Active Yolande Lindsay MD PhD Active AZITHROMYCIN 250 MG TABS 2 po qd x 1 day, then 1 po qd x 4 days AZITHROMYCIN 68770184237 No Longer Active Yolande Lindsay MD PhD Active DICLOFENAC SODIUM 75 MG TBEC 1 tablet by q 12 hours PRN headaches DICLOFENAC SODIUM 51741637285 No Longer Active Yolande Lindsay MD PhD Active FLONASE 50 MCG/ACT SUSP 1 spray each nostril am and hs FLUTICASONE PROPIONATE 15923756658 No Longer Active Todd Callaway MD Active ANUSOL-HC 25 MG SUPPOSITORY 1 rectally twice a day as needed for hemorrhoids HYDROCORTISONE JAYDEN (RECTAL) 95789355904 No Longer Active Yolande Lindsay MD PhD Active ANUSOL-HC 25 MG SUPPOSITORY 1 suppository rectally each evening as needed for anal fissure HYDROCORTISONE JAYDEN (RECTAL) 69862013935 No Longer Active LONNIE Iglesias Active VALIUM 5 MG TAB 1 po 30 minutes prior to your MRI DIAZEPAM 21614965384 No Longer Active LONNIE Iglesias Active METHOCARBAMOL 750 MG TABS 1 PO QID PRN METHOCARBAMOL 90960543186 No Longer Active Daphne Wetzel APRN Active NITROSTAT 0.4 MG SUBL as directed NITROGLYCERIN 53654240259 No Longer Active Rodrigo Sarah APRN Active ROBAXIN-750 750 MG TABS 2 four times a day for 3 days as needed for muscle spasm, then 1 four times a day as needed METHOCARBAMOL 63777558787 No Longer Active Rodrigo Sarah APRN Active HYDROCODONE-ACETAMINOPHEN 5-325 MG TABS 1 q 4-6 hrs prn HYDROCODONE-ACETAMINOPHEN 11502626131 No Longer Active Rodrigo Sarah GENERAL TELLER Active VERAPAMIL HCL CR 180 MG CR-TABS TAKE 1 TAB DAILY VERAPAMIL HCL 85067110145 No Longer Active Yolande Lindsay MD PhD Active BACTRIM DS 800-160 MG TAB 1 tab by mouth twice daily TRIMETHOPRIM-SULFAMETHOXAZOLE 12566191716 No Longer Active Yolande Lindsay MD PhD Active NEXIUM 40 MG PACK 1 by mouth daily ESOMEPRAZOLE MAGNESIUM 90257662729 No Longer Active Des Hines MD Active EPIPEN 2-CHARLETTE 0.3 MG/0.3ML OMARI as need for allergic reaction EPINEPHRINE 63467042236 Active Yolande Lindsay MD PhD Active NEXIUM 40 MG CPDR 1 PO Q D DAY ESOMEPRAZOLE MAGNESIUM 98132187528 No Longer Active Sadia Perry RN Active NEXIUM 40 MG PACK 1 by mouth daily NEXIUM 40 MG PACK ESOMEPRAZOLE MAGNESIUM Inactive VERAPAMIL HCL CR 180 MG CR-TABS TAKE 1 TAB DAILY VERAPAMIL HCL CR 180 MG CR-TABS VERAPAMIL HCL Inactive HYDROCODONE-ACETAMINOPHEN 5-325 MG TABS 1 q 4-6 hrs prn HYDROCODONE-ACETAMINOPHEN 5-325 MG TABS 563788 HYDROCODONE-ACETAMINOPHEN Inactive ROBAXIN-750 750 MG TABS 2 four times a day for 3 days as needed for muscle spasm, then 1 four times a day as needed ROBAXIN-750 750 MG TABS 531963 METHOCARBAMOL Inactive NITROSTAT 0.4 MG SUBL as directed NITROSTAT 0.4 MG SUBL NITROGLYCERIN Inactive METHOCARBAMOL 750 MG TABS 1 PO QID PRN METHOCARBAMOL 750 MG TABS 634390 METHOCARBAMOL Inactive VALIUM 5 MG TAB 1 po 30 minutes prior to your MRI VALIUM 5 MG TAB 231404 DIAZEPAM Inactive ANUSOL-HC 25 MG SUPPOSITORY 1 suppository rectally each evening as needed for anal fissure ANUSOL-HC 25 MG SUPPOSITORY 6803548 HYDROCORTISONE JAYDEN (RECTAL) Inactive ANUSOL-HC 25 MG SUPPOSITORY 1 rectally twice a day as needed for hemorrhoids ANUSOL-HC 25 MG SUPPOSITORY 8152444 HYDROCORTISONE JAYDEN (RECTAL) Inactive FLONASE 50 MCG/ACT SUSP 1 spray each nostril am and hs FLONASE 50 MCG/ACT SUSP FLUTICASONE PROPIONATE Inactive DICLOFENAC SODIUM 75 MG TBEC 1 tablet by q 12 hours PRN headaches DICLOFENAC SODIUM 75 MG TBEC 437337 DICLOFENAC SODIUM Inactive PA VITAMIN D-3 2000 UNIT CAPS 1 CAP PO DAILY PA VITAMIN D-3 2000 UNIT CAPS CHOLECALCIFEROL Inactive PREVACID 30 MG CPDR Take 1 tablet by mouth daily-PRN PREVACID 30 MG CPDR 142363 LANSOPRAZOLE Inactive DOXYCYCLINE HYCLATE 100 MG TAB 1 tab twice a day for 14 days 2013 DOXYCYCLINE HYCLATE 100 MG TAB 0469569 DOXYCYCLINE HYCLATE Inactive XOPENEX 1.25 MG/3ML NEBU 1 neb every 4 hours if needed for cough/congestion XOPENEX 1.25 MG/3ML NEBU 525008 LEVALBUTEROL HCL Inactive CYCLOBENZAPRINE HCL 10 MG TABS 1/2 - 1 tab by mouth three times daily if needed for spasms/pain CYCLOBENZAPRINE HCL 10 MG TABS 058854 CYCLOBENZAPRINE HCL Inactive ALBUTEROL SULFATE 0.083 % NEBU SOLN one vial per nebulizer every 4-6 hours as needed ALBUTEROL SULFATE 0.083 % NEBU SOLN 641002 ALBUTEROL SULFATE Inactive CEFTIN 500 MG TAB 1 twice a day CEFTIN 500 MG TAB 362705 CEFUROXIME AXETIL Inactive ZOFRAN ODT 4 MG TBDP 1 pill dissolved by mouth every 4 hours if needed for nausea ZOFRAN ODT 4 MG TBDP 667319 ONDANSETRON Inactive ADULT ASPIRIN EC LOW STRENGTH 81 MG TBEC Take 1 tablet by mouth daily 2014 ADULT ASPIRIN EC LOW STRENGTH 81 MG TBEC 757932 ASPIRIN Inactive CALCIUM 600+D PLUS MINERALS 600-400 [...] or an apple NIACIN 500 MG TABS 119920 NIACIN Inactive NIASPAN 500 MG ORAL CR-TABS 1 pill nightly x 1 week, then 2 pills nightly x 1 week, then 3 pills nightly x 1 week, then 4 pills nightly NIASPAN 500 MG ORAL CR-TABS NIACIN (ANTIHYPERLIPIDEMIC) Inactive OXYCODONE HCL 5 MG ORAL CAPS 1 TAB PO Q HS OXYCODONE HCL 5 MG ORAL CAPS 6518263 OXYCODONE HCL Inactive FLUTICASONE PROPIONATE 50 MCG/ACT SUSP 1 to 2 sprays each nostril daily 04/21 FLUTICASONE PROPIONATE 50 MCG/ACT SUSP 025030 FLUTICASONE PROPIONATE Inactive POLYTRIM 59201-4.1 UNIT/ML-% SOLN 1 gtt to affected eye q3h x 7 days POLYTRIM 04038-4.1 UNIT/ML-% SOLN 646229 POLYMYXIN B- TRIMETHOPRIM Inactive CHERATUSSIN AC 100-10 MG/5ML SYRP 1 tsp by mouth every 4 hours as needed for cough CHERATUSSIN AC 100-10 MG/5ML SYRP 353549 GUAIFENESIN-CODEINE Inactive LEVOTHYROXINE SODIUM 75 MCG TABS Take 1 tab daily LEVOTHYROXINE SODIUM 75 MCG TABS 170659 LEVOTHYROXINE SODIUM Inactive BACTRIM DS 800-160 MG TAB 1 tab by mouth twice daily BACTRIM DS 800-160 MG TAB 19820606 TRIMETHOPRIM-SULFAMETHOXAZOLE Inactive AZITHROMYCIN 250 MG TABS 2 po qd x 1 day, then 1 po qd x 4 days AZITHROMYCIN 250 MG TABS 8433652 AZITHROMYCIN Inactive CEFDINIR 300 MG CAPS by mouth twice a day CEFDINIR 300 MG CAPS 295875 CEFDINIR Inactive AZITHROMYCIN 250 MG TABS 2 pills on day 1, then 1 pill daily x 4 days AZITHROMYCIN 250 MG TABS 9169702 AZITHROMYCIN Inactive DOXYCYCLINE HYCLATE 100 MG CAP 1 cap by mouth twice daily DOXYCYCLINE HYCLATE 100 MG CAP 3873382 DOXYCYCLINE HYCLATE Inactive FUROSEMIDE 20 MG TABS 1 pill by mouth daily, for edema FUROSEMIDE 20 MG TABS 481805 FUROSEMIDE Inactive AZITHROMYCIN 250 MG TABS 2 po qd x 1 day, then 1 po qd x 4 days AZITHROMYCIN 250 MG TABS 2029942 AZITHROMYCIN Inactive CEFTIN 500 MG TAB 1 twice a day CEFTIN 500 MG TAB 883760 CEFUROXIME AXETIL Inactive CEFDINIR 300 MG CAPS [...] for 2 days PREDNISONE 20 MG TAB 917648 PREDNISONE Inactive Immunizations Vaccine Administration Date Value Standard Description Seasonal influenza vaccine, injectable, containing preservative, for > 3 years old (Afluria, FluLaval, Fluzone, Fluvirin, Fluarix, Agriflu(>=18 yo)) Fluzone (>3 yrs.) [PCW391] Influenza, seasonal, injectable influenza immunization (Flu Vax) has been administered Influenza - Unspecified Formulation [CVX88] influenza virus vaccine, unspecified formulation Seasonal influenza vaccine, injectable, containing preservative, for > 3 years old (Afluria, FluLaval, Fluzone, Fluvirin, Fluarix, Agriflu(>=18 yo)) Fluzone (>3 yrs.) [HJZ502] Influenza, seasonal, injectable pneumococcal immunization administered Pneumovax 23 [CVX33] pneumococcal polysaccharide vaccine, 23 valent dT (Diphtheria and Tetanus) booster given given Td(adult) unspecified formulation Boostrix (Tetanus toxoid, reduced diphtheria toxoid and acellular pertussis vaccine, adsorbed), booster Boostrix [XHB312] tetanus toxoid, reduced diphtheria toxoid, and acellular [...] Panel - Chemistry sodium, serum 142 mmol/L 333-551 8462/06/30 potassium, serum 4.4 mmol/L 3.5-5.2 chloride, serum 108 mmol/L 98-107 carbon dioxide, venous blood 25.1 mmol/L 21.0-32.0 blood glucose 82 mg/dL 65-110 calcium, serum 9.1 mg/dL 8.5-10.1 urea nitrogen, blood 18 mg/dL 7-18 creatinine, serum 1.31 mg/dL 0.55-1.30 Lab Report: [facility] Advanced Lipid and Inlammation Panel /36198 - Chemistry cholesterol, serum 148 mg/dL 322-974 2587/09/02 HDL cholesterol, serum 55 mg/dL > OR=46 triglyceride, serum, fasting 67 mg/dL LDL cholesterol, serum 80 mg/dL cholesterol/HDL ratio, serum 2.7 calc < OR=5.0 Lab Report: CBC - Hematology mean corpuscular hemoglobin, RBC 26.5 pg 27.0-31.2 mean corpuscular hemoglobin concentration, RBC 31.6 G/DL % 31.8- 35.4 red blood cell distribution width 15.7 % 11.6-14.8 platelet count 224 10^3/MM^3 10*3/mm3 183-732 5659/12/30 mean corpuscular volume, RBC 84 fL 80-97 [...] (L) - Chemistry sodium, serum 145 mmol/L 250-971 0276/09/02 potassium, serum 4.6 mmol/L 3.5-5.2 chloride, serum [...] Rate - Chemistry sodium, serum 139 mmol/L 691-553 4162/03/24 carbon dioxide, venous blood 22.4 mmol/L 21.0-32.0 [...] ... - Chemistry sodium, serum 143 mmol/L 444-825 8348/05/02 carbon dioxide, venous blood 25.6 mmol/L 21.0-32.0 [...] Negative mg/dL Negative sodium, serum 142 mmol/L 715-362 9267/07/18 carbon dioxide, venous blood 27.8 mmol/L 21.0-32.0 [...] mg/dL Encounters Code Encounter Date Provider Facility CPT-96960 Level 3 Est. Patient 11:01:51 CDT Gab Padron MD [facility] CPT-35608 Level 3 Est. Patient 15:27:02 CDT Jared Og MD [facility] [place] CPT-87407 Level 4 Est. Patient 09:25:27 CDT Gab Padron MD [facility] CPT-18968 Level 3 Est. Patient 10:29:41 CDT Rodrigo Sarah APRN [facility] CPT-98062 Level 4 Est. Patient 17:51:05 CDT Gab Padron MD [facility] CPT-17337 Level 3 Est. Patient 14:18:08 CDT Gab Padron MD [facility] CPT-62239 Level 4 Est. Patient 10:18:54 CDT Gab Padron MD [facility] CPT-98841 Level 3 Est. Patient 11:30:07 CDT Rodrigo Sarah APRN [facility] CPT-57622 Level 4 Est. Patient 21:02:30 SERVICE REPRESENTATIVE Gab Padron MD [facility]-01011 Level 3 Est. Patient 11:02:19 SERVICE REPRESENTATIVE Gab Padron MD [facility][note 3]-[id number] Level 4 Est. Patient 22:24:31 SERVICE REPRESENTATIVE Gab Padron MD [facility][note 3]-[id number] Level 3 Est. Patient 18:33:46 SERVICE REPRESENTATIVE Gab Padron MD [facility][note 3]-[id number] Level 3 Est. Patient 16:19:11 CDT Yolande Lindsay MD [facility]-33285 Level 3 Est. Patient 18:59:14 CDT Yolande Lindsay MD [facility]-45559 Level 4 Est. Patient 21:29:26 CDT Yolande Lindsay MD [facility]-84839 Level 3 Est. Patient 07:37:45 CDT Yolande Lindsay MD [facility]-14537 Level 3 Est. Patient 17:03:46 CDT Yolande Lindsay MD [facility]-52919 Level 4 Est. Patient 20:02:13 SERVICE REPRESENTATIVE Yolande Lindsay MD [facility]-30073 Level 3 Est. Patient 16:02:07 SERVICE REPRESENTATIVE Alexis Ordaz MD [facility][note 3]-[id number] Level 3 Est. Patient 12:41:24 SERVICE REPRESENTATIVE Yolande Lindsay MD PhD [facility][note 3]-[id number] Level 3 Est. Patient 15:41:20 SERVICE REPRESENTATIVE Yolande Lindsay MD [facility]-40928 Level 3 Est. Patient 13:20:02 SERVICE REPRESENTATIVE Yolande Lindsay MD [facility]-31965 Level 3 Est. Patient 15:00:38 CDT Jared Og MD [facility]-38824 Level 3 Est. Patient 10:22:32 CDT Yolande Lindsay MD [facility]-67159 Level 3 Est. Patient 17:12:58 CDT Yolande Lindsay MD [facility]-81936 Level 4 Est. Patient 13:30:58 CDT Yolande Lindsay MD [facility]-36780 Level 4 New Patient 09:02:42 CDT Jared Og MD [facility]-29186 Level 3 Est. Patient 08:19:07 CDT Yolande Lindsay MD [facility]-12974 Level 3 Est. Patient 12:00:13 SERVICE REPRESENTATIVE Gab Padron MD [facility][note 3]-50886 Level 3 Est. Patient 16:15:23 SERVICE REPRESENTATIVE Yolande Lindsay MD [facility] CPT-50703 Level 2 Est. Patient 19:47:15 CDT Yolande Lindsay MD [facility]-42844 Level 3 Est. Patient 21:38:31 CDT Yolande Lindsay MD [facility]-04684 Level 3 Est. Patient 10:25:12 CDT Adiel PERAZA [facility][note 3]-[id number] Level 4 Est. Patient 10:51:58 CDT Yolande Lindsay MD [facility]-00950 Level 3 Est. Patient 14:04:55 SERVICE REPRESENTATIVE Rodrigo Sarah [facility]-72229 Level 3 Est. Patient 10:46:35 SERVICE REPRESENTATIVE Rodrigo Sarah [facility]-12776 Level 3 Est. Patient 14:24:37 SERVICE REPRESENTATIVE Yolande Lindsay MD [facility] CPT-53681 Level 3 Est. Patient 17:41:58 SERVICE REPRESENTATIVE Yolande Lindsay MD [facility] CPT-75215 Level 2 Est. Patient 22:01:41 SERVICE REPRESENTATIVE Rodrigo Sarah [facility] CPT-60168 Level 2 Est. Patient 22:01:11 SERVICE REPRESENTATIVE Rodrigo Sarah [facility] CPT-84565 Level 3 Est. Patient 10:12:29 SERVICE REPRESENTATIVE Rodrigo Sarah [facility] CPT-08465 Level 3 Est. Patient 11:05:44 CDT Alexis Ordaz MD [facility] CPT-43844 Level 3 Est. Patient 14:57:20 CDT Yolande Lindsay MD [facility] CPT-67104 Level 3 Est. Patient 14:40:57 CDT Yolande Lindsay MD [facility] CPT-63726 Level 3 Est. Patient 20:55:40 CDT Yolande Lindsay MD [facility] CPT-95665 Level 3 Est. Patient 12:42:38 SERVICE REPRESENTATIVE Yolande Lindsay MD [facility] CPT-85932 Level 3 Est. Patient 11:54:49 SERVICE REPRESENTATIVE Des Hines MD [facility] CPT-24278 Level 3 Est. Patient 17:06:38 CDT Dewayne PERAZA [facility] Procedures Code Procedure Name Date Entry Date Standard Description CPT-60805 Foot, left, comp min 3V - XRAY USE ONLY 09:24:54 CDT CPT-89682 Abd single AP View - XRAY USE ONLY 11:16:17 CDT CPT-06723 T spine AP/ Lat - XRAY USE ONLY 09:34:21 CDT CPT-08092 Chest 2V Frontal and Lat - XRAY USE ONLY 10:48:51 CDT CPT-87130 LS spine comp w obliq 13:28:00 SERVICE REPRESENTATIVE CPT-J1040 Depo Medrol 80 mg (Methyl Prednisolone Acetate) 10:51: 28 SERVICE REPRESENTATIVE CPT-J1100 Decadron 8mg (Dexamethasone) 10:51:28 SERVICE REPRESENTATIVE CPT-24975 Abx/Therapy Injection 10:51:28 SERVICE REPRESENTATIVE CPT-J1100 Decadron 8mg (Dexamethasone) 21:02:30 SERVICE REPRESENTATIVE CPT-J1040 Depo Medrol 80 mg (Methyl Prednisolone Acetate) 21:02: 30 SERVICE REPRESENTATIVE [id number] Event Monitor - MC Transmission 09:12:32 CDT 08/06 [id number] Event Monitor - MC review and interp 09:12:32 CDT [id number] Event Monitor - MC recording 09:12:32 CDT CPT-62466 EKG Trac and Interp 16:50:22 CDT CPT-J1030 Depo Medrol 40 mg (Methyl Prednisolone Acetate) 17:05: 54 CDT CPT-J1100 Decadron 4mg (Dexamethasone) 17:05:54 CDT CPT-33514 Abx/Therapy Injection 17:05:54 CDT CPT-J1100 Decadron 4mg (Dexamethasone) 16:55:28 CDT CPT-J1030 Depo Medrol 40 mg (Methyl Prednisolone Acetate) 16:55: 28 CDT CPT-40719 Ankle Complete - Min 3V 15:58:50 CDT CPT-52830 Knee 3V 15:58:50 CDT CPT-15455 Hip comp min 2V 15:58:50 CDT CPT-J2270 Morphine Sulfate 10 mg 14:25:44 SERVICE REPRESENTATIVE CPT-J2550 Phenergan 12.5 mg (Promethazine) 14:25:44 SERVICE REPRESENTATIVE CPT-30622 Abx/Therapy Injection 14:25:44 SERVICE REPRESENTATIVE CPT-J2550 Phenergan 12.5 mg (Promethazine) 14:08:03 SERVICE REPRESENTATIVE CPT-J2270 Morphine Sulfate 10 mg 14:08:03 SERVICE REPRESENTATIVE CPT-87538 Bladder Scan 15:00:38 CDT CPT-TCMM Transitional Care Mgmt-Moderate 09:52:22 CDT CPT-J1030 Depo Medrol 40 mg (Methyl Prednisolone Acetate) 10:55: 18 CDT CPT-J1100 Decadron 4mg (Dexamethasone) 10:55:18 CDT CPT-61946 Abx/Therapy Injection 10:55:18 CDT CPT-J1030 Depo Medrol 40 mg (Methyl Prednisolone Acetate) 10:22: 32 CDT CPT-J1100 Decadron 4mg (Dexamethasone) 10:22:32 CDT CPT-04394 Postop F/U Visit 14:37:13 CDT CPT-33054 Ankle Complete - Min 3V 17:11:58 CDT CPT-70173 Foot comp min 3V 17:11:58 CDT CPT-15189 Bladder Scan 09:56:58 CDT CPT-51713 Postop F/U Visit 09:56:58 CDT CPT-71896 Cystoscopy 09:02:42 CDT CPT-96648 Bladder Scan 09:02:42 CDT CPT-23342 Abd single AP View 16:00:35 CDT CPT-42761 Administration single or combination vaccine inc oral 10 :15:43 CDT CPT-36363 Influenza split virus > age 3 10:15:43 CDT CPT-01821 Nail Avulsion 09:24:57 CDT CPT-OV Office Visit 11:15:41 CDT CPT-37342 Abx/Therapy Injection 10:51:30 CDT CPT-J3301 Kenalog 40 mg (Triamcinolone Acetonide) 10:25:12 CDT CPT-J1100 Decadron 4mg (Dexamethasone) 10:25:12 CDT CPT-66937 Anoscopy diagnostic 10:36:12 CDT CPT-OV Office Visit 15:34:31 CDT CPT-22150 Abx/Therapy Injection 08:21:15 SERVICE REPRESENTATIVE CPT-J1885 Toradol 60 mg (Ketorolac) 10:46:35 SERVICE REPRESENTATIVE CPT-OV Office Visit 19:51:16 SERVICE REPRESENTATIVE CPT-50413 Spec Collection and Handling Fee 14:34:18 SERVICE REPRESENTATIVE CPT-PV Prev. Care Visit 14:19:18 SERVICE REPRESENTATIVE CPT-26662 Postop F/U Visit 14:47:51 SERVICE REPRESENTATIVE CPT-05382 Postop F/U Visit 15:15:14 SERVICE REPRESENTATIVE CPT-49678 Postop F/U Visit 14:41:43 CDT CPT-61704 Postop F/U Visit 15:47:46 CDT CPT-OV Office Visit 15:27:23 CDT CPT-OV Office Visit 17:20:34 CDT CPT-03615 Abx/Therapy Injection 15:05:57 CDT CPT-J1100 Decadron 8mg (Dexamethasone) 14:44:57 CDT CPT-J1040 Depo Medrol 80 mg (Methyl Prednisolone Acetate) 14:44: 57 CDT CPT-JTINJ Joint Injection 10:17:37 CDT CPT-79909 Administration 2+ single or combination vaccines inc oral 13:01:46 SERVICE REPRESENTATIVE CPT-26008 Administration single or combination vaccine inc oral 13 :01:46 SERVICE REPRESENTATIVE CPT-19281 Pneumovax 13:01:46 SERVICE REPRESENTATIVE CPT-34673 Influenza split virus > age 3 13:01:46 SERVICE REPRESENTATIVE CPT-96178 Administration single or combination vaccine inc oral 08 :56:49 CDT CPT-39669 Tdap 08:56:49 CDT
--- OUTSIDE RECORDS SUMMARY | 2017-03-21 21:29 | XMS REPORT | Clinical Summary ---
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 TRAZODONE HCL sees things Critical Active [...] infarction, hx of 412 Active Hoa Otto [facility] Old myocardial infarction FOOT PAIN, RIGHT [...] tab by mouth daily CALCIUM CARBONATE-VIT D-MIN 17722870182 Active Yolande Lindsay MD PhD Active ONDANSETRON 4 MG TBDP 1 q4h PRN nausea ONDANSETRON 00038518651 Active Yolande Lindsay MD PhD Active ADULT ASPIRIN EC LOW STRENGTH 81 MG TBEC Take 1 tablet by mouth daily 2014 ASPIRIN 50179944873 No Longer Active Yolande Lindsay MD PhD Active ZOFRAN ODT 4 MG TBDP 1 pill dissolved by mouth every 4 hours if needed for nausea ONDANSETRON 70463249074 No Longer Active Yolande Lindsay MD PhD Active CEFTIN 500 MG TAB 1 twice a day CEFUROXIME AXETIL 42712738363 No Longer Active Yolande Lindsay MD PhD Active ALBUTEROL SULFATE 0.083 % NEBU SOLN one vial per nebulizer every 4-6 hours as needed ALBUTEROL SULFATE 53028541476 No Longer Active Alexis Ordaz MD Active DOXYCYCLINE HYCLATE 100 MG CAP 1 cap by mouth twice daily DOXYCYCLINE HYCLATE 58240258029 No Longer Active Yolande Lindsay MD PhD Active CYCLOBENZAPRINE HCL 10 MG TABS 1/2 - 1 tab by mouth three times daily if needed for spasms/pain CYCLOBENZAPRINE HCL 04921171710 No Longer Active Yolande Lindsay MD PhD Active TRILEPTAL 600 MG TABS Take one 1/2 tablet in Am and 1 tablet at night OXCARBAZEPINE 23225786450 Active Yolande Lindsay MD PhD Active AZITHROMYCIN 250 MG TABS 2 pills on day 1, then 1 pill daily x 4 days AZITHROMYCIN 15601233000 No Longer Active Yolande Lindsay MD PhD Active XOPENEX 1.25 MG/3ML NEBU 1 neb every 4 hours if needed for cough/congestion LEVALBUTEROL HCL 30128129811 No Longer Active Yolande Lindsay MD PhD Active DOXYCYCLINE HYCLATE 100 MG TAB 1 tab twice a day for 14 days 2013 DOXYCYCLINE HYCLATE 17735113180 No Longer Active Yolande Lindsay MD PhD Active LEVOTHYROXINE SODIUM 75 MCG TABS Take 1 tab daily LEVOTHYROXINE SODIUM 88767743785 Active Yolande Lindsay MD PhD Active PREVACID 30 MG CPDR Take 1 tablet by mouth daily-PRN LANSOPRAZOLE 90339734330 No Longer Active Yolande Lindsay MD PhD Active PA VITAMIN D-3 2000 UNIT CAPS 1 CAP PO DAILY CHOLECALCIFEROL 66992913028 No Longer Active Yolande Lindsay MD PhD Active CEFDINIR 300 MG CAPS by mouth twice a day CEFDINIR 50008240402 No Longer Active Gab Padron MD Active TOPAMAX 50 MG TABS 1 PO twice daily TOPIRAMATE 20708670956 Active Yolande Lindsay MD PhD Active AZITHROMYCIN 250 MG TABS 2 po qd x 1 day, then 1 po qd x 4 days AZITHROMYCIN 10352872075 No Longer Active Yolande Lindsay MD PhD Active DICLOFENAC SODIUM 75 MG TBEC 1 tablet by q 12 hours PRN headaches DICLOFENAC SODIUM 94031042764 No Longer Active Yolande Lindsay MD PhD Active FLONASE 50 MCG/ACT SUSP 1 spray each nostril am and hs FLUTICASONE PROPIONATE 08075534246 No Longer Active Todd Callaway MD Active ANUSOL-HC 25 MG SUPPOSITORY 1 rectally twice a day as needed for hemorrhoids HYDROCORTISONE JAYDEN (RECTAL) 18797115851 No Longer Active Yolande Lindsay MD PhD Active ANUSOL-HC 25 MG SUPPOSITORY 1 suppository rectally each evening as needed for anal fissure HYDROCORTISONE JAYDEN (RECTAL) 30141101967 No Longer Active LONNIE Iglesias Active VALIUM 5 MG TAB 1 po 30 minutes prior to your MRI DIAZEPAM 38142295530 No Longer Active LONNIE Iglesias Active METHOCARBAMOL 750 MG TABS 1 PO QID PRN METHOCARBAMOL 84133831735 No Longer Active Daphne Wetzel APRN Active NITROSTAT 0.4 MG SUBL as directed NITROGLYCERIN 53478839221 No Longer Active Rodrigo Sarah APRN Active ROBAXIN-750 750 MG TABS 2 four times a day for 3 days as needed for muscle spasm, then 1 four times a day as needed METHOCARBAMOL 24363567487 No Longer Active Rodrigo Sarah APRN Active HYDROCODONE-ACETAMINOPHEN 5-325 MG TABS 1 q 4-6 hrs prn HYDROCODONE-ACETAMINOPHEN 06430421080 No Longer Active Rodrigo Sarah APRN Active VERAPAMIL HCL CR 180 MG CR-TABS TAKE 1 TAB DAILY VERAPAMIL HCL 99236428710 No Longer Active Yolande Lindsay MD PhD Active BACTRIM DS 800-160 MG TAB 1 tab by mouth twice daily TRIMETHOPRIM-SULFAMETHOXAZOLE 99814505559 No Longer Active Yolande Lindsay MD PhD Active NEXIUM 40 MG PACK 1 by mouth daily ESOMEPRAZOLE MAGNESIUM 40274885825 No Longer Active Des Hines MD Active EPIPEN 2-CHARLETTE 0.3 MG/0.3ML OMARI as need for allergic reaction EPINEPHRINE 65327933733 Active Yolande Lindsay MD PhD Active LISINOPRIL 10 MG TABS 1 PO Q D FOR BP LISINOPRIL 87785248148 Active Yolande Lindsay MD PhD Active NEXIUM 40 MG CPDR 1 PO Q D DAY ESOMEPRAZOLE MAGNESIUM 07307655720 No Longer Active Sadia Perry RN Active NEXIUM 40 MG PACK 1 by mouth daily NEXIUM 40 MG PACK ESOMEPRAZOLE MAGNESIUM Inactive VERAPAMIL HCL CR 180 MG CR-TABS TAKE 1 TAB DAILY VERAPAMIL HCL CR 180 MG CR-TABS VERAPAMIL HCL Inactive HYDROCODONE-ACETAMINOPHEN 5-325 MG TABS 1 q 4-6 hrs prn HYDROCODONE-ACETAMINOPHEN 5-325 MG TABS 062152 HYDROCODONE-ACETAMINOPHEN Inactive ROBAXIN-750 750 MG TABS 2 four times a day for 3 days as needed for muscle spasm, then 1 four times a day as needed ROBAXIN-750 750 MG TABS 520712 METHOCARBAMOL Inactive NITROSTAT 0.4 MG SUBL as directed NITROSTAT 0.4 MG SUBL NITROGLYCERIN Inactive METHOCARBAMOL 750 MG TABS 1 PO QID PRN METHOCARBAMOL 750 MG TABS 266594 METHOCARBAMOL Inactive VALIUM 5 MG TAB 1 po 30 minutes prior to your MRI VALIUM 5 MG TAB 806942 DIAZEPAM Inactive ANUSOL-HC 25 MG SUPPOSITORY 1 suppository rectally each evening as needed for anal fissure ANUSOL-HC 25 MG SUPPOSITORY 2500906 HYDROCORTISONE JAYDEN (RECTAL) Inactive ANUSOL-HC 25 MG SUPPOSITORY 1 rectally twice a day as needed for hemorrhoids ANUSOL-HC 25 MG SUPPOSITORY 7166957 HYDROCORTISONE JAYDEN (RECTAL) Inactive FLONASE 50 MCG/ACT SUSP 1 spray each nostril am and hs FLONASE 50 MCG/ACT SUSP 764959 FLUTICASONE PROPIONATE Inactive DICLOFENAC SODIUM 75 MG TBEC 1 tablet by q 12 hours PRN headaches DICLOFENAC SODIUM 75 MG TBEC 599036 DICLOFENAC SODIUM Inactive PA VITAMIN D-3 2000 UNIT CAPS 1 CAP PO DAILY PA VITAMIN D-3 2000 UNIT CAPS CHOLECALCIFEROL Inactive PREVACID 30 MG CPDR Take 1 tablet by mouth daily-PRN PREVACID 30 MG CPDR 195371 LANSOPRAZOLE Inactive DOXYCYCLINE HYCLATE 100 MG TAB 1 tab twice a day for 14 days 2013 DOXYCYCLINE HYCLATE 100 MG TAB 659567 DOXYCYCLINE HYCLATE Inactive XOPENEX 1.25 MG/3ML NEBU 1 neb every 4 hours if needed for cough/congestion XOPENEX 1.25 MG/3ML NEBU LEVALBUTEROL HCL Inactive CYCLOBENZAPRINE HCL 10 MG TABS 1/2 - 1 tab by mouth three times daily if needed for spasms/pain CYCLOBENZAPRINE HCL 10 MG TABS 316284 CYCLOBENZAPRINE HCL Inactive ALBUTEROL SULFATE 0.083 % NEBU SOLN one vial per nebulizer every 4-6 hours as needed ALBUTEROL SULFATE 0.083 % NEBU SOLN 417246 ALBUTEROL SULFATE Inactive CEFTIN 500 MG TAB 1 twice a day CEFTIN 500 MG TAB 608842 CEFUROXIME AXETIL Inactive ZOFRAN ODT 4 MG TBDP 1 pill dissolved by mouth every 4 hours if needed for nausea ZOFRAN ODT 4 MG TBDP 648120 ONDANSETRON Inactive ADULT ASPIRIN EC LOW STRENGTH 81 MG TBEC Take 1 tablet by mouth daily 2014 ADULT ASPIRIN EC LOW STRENGTH 81 MG TBEC 809123 ASPIRIN Inactive BACTRIM DS 800-160 MG TAB 1 tab by mouth twice daily BACTRIM DS 800-160 MG TAB TRIMETHOPRIM-SULFAMETHOXAZOLE Inactive AZITHROMYCIN 250 MG TABS 2 po qd x 1 day, then 1 po qd x 4 days AZITHROMYCIN 250 MG TABS 0193129 AZITHROMYCIN Inactive CEFDINIR 300 MG CAPS by mouth twice a day CEFDINIR 300 MG CAPS 787952 CEFDINIR Inactive AZITHROMYCIN 250 MG TABS 2 pills on day 1, then 1 pill daily x 4 days AZITHROMYCIN 250 MG TABS 8314774 AZITHROMYCIN Inactive DOXYCYCLINE HYCLATE 100 MG CAP 1 cap by mouth twice daily DOXYCYCLINE HYCLATE 100 MG CAP 19890510 DOXYCYCLINE HYCLATE Inactive Immunizations Vaccine Administration Date Value Standard Description Seasonal influenza vaccine, injectable, containing preservative, for > 3 years old (Afluria, FluLaval, Fluzone, Fluvirin, Fluarix, Agriflu(>=18 yo)) Fluzone (>3 yrs.) [SBJ087] Influenza, seasonal, injectable influenza immunization (Flu Vax) has been administered Influenza - Unspecified Formulation [CVX88] influenza virus vaccine, unspecified formulation pneumococcal immunization administered Pneumovax 23 [CVX33] pneumococcal polysaccharide vaccine, 23 valent Seasonal influenza vaccine, injectable, containing preservative, for > 3 years old (Afluria, FluLaval, Fluzone, Fluvirin, Fluarix, Agriflu(>=18 yo)) Fluzone (>3 yrs.) [FMX199] Influenza, seasonal, injectable dT (Diphtheria and Tetanus) booster given given Td(adult) unspecified formulation Boostrix (Tetanus toxoid, reduced diphtheria toxoid and acellular pertussis vaccine, adsorbed), booster Boostrix [SKQ447] tetanus toxoid, reduced diphtheria toxoid, and acellular [...] Description Chart Maintenance: Outside labs entered on [employer] - Chemistry sodium, serum 143 mmol/L potassium, serum 4.2 mmol/L blood glucose 85 mg/dL creatinine, serum 1.38 mg/dL Chart Maintenance: Outside labs entered on [employer] - Hematology leukocyte count, blood 6.1 10*3/mm3 hemoglobin, blood 11.0 g/dL platelet count 175 10*3/mm3 Lab Report: [facility] Advanced Lipid and Inlammation Panel /55317 - Chemistry cholesterol, serum 198 mg/dL 078-351 6508/04/30 HDL cholesterol, serum 65 mg/dL > OR=46 triglyceride, serum, fasting 82 mg/dL LDL cholesterol, serum 117 mg/dL cholesterol/HDL ratio, serum 3.0 calc < OR=5.0 Lab Report: CBC W/DIFF, Basic Metabolic Panel - Chemistry sodium, serum 144 mmol/L 429-336 8454/01/21 potassium, serum 4.2 mmol/L 3.5-5.2 chloride, serum [...] Panel - Chemistry sodium, serum 144 mmol/L 113-562 6769/12/15 potassium, serum 5.4 mmol/L 3.5-5.2 chloride, serum [...] UA - Chemistry sodium, serum 143 mmol/L 541-822 1794/10/24 potassium, serum 3.9 mmol/L 3.5-5.2 chloride, serum [...] 51 mg/dL 30-200 cholesterol, serum 173 mg/dL 698-497 2107/04/28 HDL cholesterol, serum 63 mg/dL 32-96 LDL [...] 0-19 Encounters Code Encounter Date Provider Facility CPT-29639 Level 3 Est. Patient 07:37:45 CDT Yolande Lindsay MD PhD [facility] CPT-52185 Level 3 Est. Patient 17:03:46 CDT Yolande Lindsay MD [facility] CPT-91564 Level 4 Est. Patient 20:02:13 BEATER ENGINEER HELPER Yolande Lindsay MD [facility] CPT-02936 Level 3 Est. Patient 16:02:07 BEATER ENGINEER HELPER Alexis Ordaz MD [facility] CPT-96380 Level 3 Est. Patient 12:41:24 BEATER ENGINEER HELPER Yolande Lindsay MD [facility] [place] Level 3 Est. Patient 15:41:20 BEATER ENGINEER HELPER Yolande Lindsay MD [facility] [place]44 Level 3 Est. Patient 13:20:02 BEATER ENGINEER HELPER Yolande Lindsay MD [facility] [facility] [place]-[address]886 Level 3 Est. Patient 15:00:38 CDT Jared Og MD [facility]-55200 Level 3 Est. Patient 10:22:32 CDT Yolande Lindsay MD [facility] CPT-87193 Level 3 Est. Patient 17:12:58 CDT Yolande Lindsay MD [facility] CPT-15834 Level 4 Est. Patient 13:30:58 CDT Yolande Lindsay MD [facility] CPT-26464 Level 4 New Patient 09:02:42 CDT Jared Og MD [facility]-53294 Level 3 Est. Patient 08:19:07 CDT Yolande Lindsay MD [facility] CPT-09803 Level 3 Est. Patient 12:00:13 BEATER ENGINEER HELPER Gab Padron MD [facility] [place]-[address]64 Level 3 Est. Patient 16:15:23 BEATER ENGINEER HELPER Yolande Lindsay MD [facility] CPT-91260 Level 2 Est. Patient 19:47:15 CDT Yolande Lindsay MD [facility] [place]338 Level 3 Est. Patient 21:38:31 CDT Yolande Lindsay MD [facility] [place]576 Level 3 Est. Patient 10:25:12 CDT Adiel Rodríguezozzie PERAZA [facility] CPT-54179 Level 4 Est. Patient 10:51:58 CDT Yolande Lindsay MD [facility] [place]54 Level 3 Est. Patient 14:04:55 BEATER ENGINEER HELPER Rodrigo Sarah [facility] CPT-28513 Level 3 Est. Patient 10:46:35 BEATER ENGINEER HELPER Rodrigo Sarah [facility]-37361 Level 3 Est. Patient 14:24:37 BEATER ENGINEER HELPER Yolande Lindsay MD [facility] [place]-93167 Level 3 Est. Patient 17:41:58 BEATER ENGINEER HELPER Yolande Lindsay MD [facility] [place]-[address]18 Level 2 Est. Patient 22:01:41 BEATER ENGINEER HELPER Rodrigo Sarah [facility] CPT-34315 Level 2 Est. Patient 22:01:11 BEATER ENGINEER HELPER Rodrigo Sarah [facility] CPT-29171 Level 3 Est. Patient 10:12:29 BEATER ENGINEER HELPER Rodrigo Sarah [facility] CPT-50761 Level 3 Est. Patient 11:05:44 CDT Alexis Ordaz MD [facility] CPT-46796 Level 3 Est. Patient 14:57:20 CDT Yolande Lindsay MD [facility] [place]-[address]019 Level 3 Est. Patient 14:40:57 CDT Yolande Lindsay MD [facility] [place]-[address]50 Level 3 Est. Patient 20:55:40 CDT Yolande Lindsay MD [facility] [place] Level 3 Est. Patient 12:42:38 BEATER ENGINEER HELPER Yolande Lindsay MD PhD [facility] CPT-89460 Level 3 Est. Patient 11:54:49 BEATER ENGINEER HELPER Des Hines MD [facility] CPT-17843 Level 3 Est. Patient 17:06:38 CDT Dewayne PERAZA [facility] Procedures Code Procedure Name Date Entry Date Standard Description [id number] Event Monitor - MC Transmission 09:12:32 CDT 08/06 [id number] Event Monitor - MC review and interp 09:12:32 CDT [id number] Event Monitor - MC recording 09:12:32 CDT CPT-91925 EKG Trac and Interp 16:50:22 CDT CPT-J1030 Depo Medrol 40 mg (Methyl Prednisolone Acetate) 17:05: 54 CDT CPT-J1100 Decadron 4mg (Dexamethasone) 17:05:54 CDT CPT-38871 Abx/Therapy Injection 17:05:54 CDT CPT-J1100 Decadron 4mg (Dexamethasone) 16:55:28 CDT CPT-J1030 Depo Medrol 40 mg (Methyl Prednisolone Acetate) 16:55: 28 CDT CPT-77122 Ankle Complete - Min 3V 15:58:50 CDT CPT-51218 Knee 3V 15:58:50 CDT CPT-99783 Hip comp min 2V 15:58:50 CDT CPT-J2270 Morphine Sulfate 10 mg 14:25:44 BEATER ENGINEER HELPER CPT-J2550 Phenergan 12.5 mg (Promethazine) 14:25:44 BEATER ENGINEER HELPER CPT-23140 Abx/Therapy Injection 14:25:44 BEATER ENGINEER HELPER CPT-J2550 Phenergan 12.5 mg (Promethazine) 14:08:03 BEATER ENGINEER HELPER CPT-J2270 Morphine Sulfate 10 mg 14:08:03 BEATER ENGINEER HELPER CPT-62006 Bladder Scan 15:00:38 CDT CPT-TCMM Transitional Care Mgmt-Moderate 09:52:22 CDT CPT-J1030 Depo Medrol 40 mg (Methyl Prednisolone Acetate) 10:55: 18 CDT CPT-J1100 Decadron 4mg (Dexamethasone) 10:55:18 CDT CPT-42938 Abx/Therapy Injection 10:55:18 CDT CPT-J1030 Depo Medrol 40 mg (Methyl Prednisolone Acetate) 10:22: 32 CDT CPT-J1100 Decadron 4mg (Dexamethasone) 10:22:32 CDT CPT-56932 Postop F/U Visit 14:37:13 CDT CPT-84552 Ankle Complete - Min 3V 17:11:58 CDT CPT-34630 Foot comp min 3V 17:11:58 CDT CPT-14932 Bladder Scan 09:56:58 CDT CPT-97451 Postop F/U Visit 09:56:58 CDT CPT-20125 Cystoscopy 09:02:42 CDT CPT-63078 Bladder Scan 09:02:42 CDT CPT-31191 Abd single AP View 16:00:35 CDT CPT-29447 Administration single or combination vaccine inc oral 10 :15:43 CDT CPT-56757 Influenza split virus > age 3 10:15:43 CDT CPT-70501 Nail Avulsion 09:24:57 CDT CPT-OV Office Visit 11:15:41 CDT CPT-41027 Abx/Therapy Injection 10:51:30 CDT CPT-J3301 Kenalog 40 mg (Triamcinolone Acetonide) 10:25:12 CDT CPT-J1100 Decadron 4mg (Dexamethasone) 10:25:12 CDT CPT-53607 Anoscopy diagnostic 10:36:12 CDT CPT-OV Office Visit 15:34:31 CDT CPT-69538 Abx/Therapy Injection 08:21:15 BEATER ENGINEER HELPER CPT-J1885 Toradol 60 mg (Ketorolac) 10:46:35 BEATER ENGINEER HELPER CPT-OV Office Visit 19:51:16 BEATER ENGINEER HELPER CPT-38303 Spec Collection and Handling Fee 14:34:18 BEATER ENGINEER HELPER CPT-PV Prev. Care Visit 14:19:18 BEATER ENGINEER HELPER CPT-82251 Postop F/U Visit 14:47:51 BEATER ENGINEER HELPER CPT-54831 Postop F/U Visit 15:15:14 BEATER ENGINEER HELPER CPT-98541 Postop F/U Visit 14:41:43 CDT CPT-38129 Postop F/U Visit 15:47:46 CDT CPT-OV Office Visit 15:27:23 CDT CPT-OV Office Visit 17:20:34 CDT CPT-58853 Abx/Therapy Injection 15:05:57 CDT CPT-J1100 Decadron 8mg (Dexamethasone) 14:44:57 CDT CPT-J1040 Depo Medrol 80 mg (Methyl Prednisolone Acetate) 14:44: 57 CDT CPT-JTINJ Joint Injection 10:17:37 CDT CPT-24353 Administration 2+ single or combination vaccines inc oral 13:01:46 BEATER ENGINEER HELPER CPT-73674 Administration single or combination vaccine inc oral 13 :01:46 BEATER ENGINEER HELPER CPT-22209 Pneumovax 13:01:46 BEATER ENGINEER HELPER CPT-49357 Influenza split virus > age 3 13:01:46 BEATER ENGINEER HELPER CPT-87654 Administration single or combination vaccine inc oral 08 :56:49 CDT CPT-81869 Tdap 08:56:49 CDT
--- OUTSIDE RECORDS SUMMARY | 2017-03-21 21:29 | XMS REPORT ---
Author Author [facility] Medical Staff Organization [facility] [facility] Address [address] [id number] Phone [phone] Care Team Providers Care Table Cut Off Saw Operator Name Role Phone LENKA HUTSON, EUNICE PP [phone] Summary purpose TRANSITION OF CARE AUTO GENERATION Chief Complaint and Reason for Visit Admit Diagnosis 1 JOINT PAIN-L/LEG Problem list No authorized problems tracked for continuity of care are available for this visit. Encounters No authorized problems tracked for encounter diagnoses are available for this visit. Medications No home medications recorded for this patient visit Allergies, [...] tests and/or laboratory data RESULTS Radiology Results [id number] KNEE XRAY - 3 VIEW PACs Image DATE OF EXAM: Jun 25 2014 RAD 0953-KNEE XRAY-3 VIEW- RIGHT: RADIOLOGY REPORT DATE OF SERVICE: 06/25/14 HISTORY: Right knee pain RIGHT KNEE 3 VIEWS 1505 HOURS There is mild medial joint line spurring. There is patellofemoral narrowing and spurring. There is no fracture. There are no loose bodies. There are no soft tissue calcifications. IMPRESSION: Mild osteoarthritis. MD DEMI Hubbard/ks06/25/2014 15:23:00 / 06/25/2014 15:25:03 cc:Laurita Tang PA-C This document has been electronically Signed by: On: DATE OF EXAM: Jun 25 2014 RAD 0953-KNEE XRAY-3 VIEW- RIGHT: RADIOLOGY REPORT DATE OF SERVICE: 06/25/14 HISTORY: Right knee pain RIGHT KNEE 3 VIEWS 1505 HOURS There is mild medial joint line spurring. There is patellofemoral narrowing and spurring. There is no fracture. There are no loose bodies. There are no soft tissue calcifications. IMPRESSION: Mild osteoarthritis. MD DEMI Hubbard/liam06/25/2014 15:23:00 / 06/25/2014 15:25:03 cc:Laurita Tang PA-C This document has been electronically Signed by: ARCENIO NINO On: Jun 25 20143:28P Result Amended on 2014-06-25 at 15:28:12. Previous status was AL. History of procedures Procedure Code Code Type Description Date Performed Performing Physician 26989 CPT-4 X-RAY EXAM OF KNEE, 3 06-25-2014 LAURITA TANG Functional status No functional or cognitive status [...]
--- OUTSIDE RECORDS SUMMARY | 2017-03-21 21:30 | XMS REPORT | Clinical Summary ---
Author Author Admin, MARGRET Organization [facility] Address Unknown Phone Unavailable Allergies, Adverse Reactions, Alerts Allergy Name Reaction Description Start Date Severity Status Provider CHLORHEXIDINE GLUCONATE tongue and gums swollen Critical Active Hoa Otto RMA NORFLEX Rash Critical Active Rodrigo Sarah PHOTO TECHNOLOGIST TRAZODONE HCL sees things Critical Active Dewayne [...] MD PhD Headache SPONDYLOLISTHESIS 756.12 Active Yolande Lindasy MD PhD Spondylolisthesis, congenital OTHER DISORDER OF [...] Generic Name NDC Status Provider Patient Instruction ONDANSETRON 4 MG TBDP 1 q4h PRN nausea ONDANSETRON 19063703619 Active Yolande Lindsay MD PhD Active ADULT ASPIRIN EC LOW STRENGTH 81 MG TBEC Take 1 tablet by mouth daily 2014 ASPIRIN 41799775883 No Longer Active Yolande Lindsay MD PhD Active ZOFRAN ODT 4 MG TBDP 1 pill dissolved by mouth every 4 hours if needed for nausea ONDANSETRON 53200884245 No Longer Active Yolande Lindsay MD PhD Active CEFTIN 500 MG TAB 1 twice a day CEFUROXIME AXETIL 93593622745 No Longer Active Yolande Lindsay MD PhD Active ALBUTEROL SULFATE 0.083 % NEB SOLN one vial per nebulizer every 4-6 hours as needed ALBUTEROL SULFATE 63266615044 No Longer Active Alexis Ordaz MD Active DOXYCYCLINE HYCLATE 100 MG CAP 1 cap by mouth twice daily DOXYCYCLINE HYCLATE 26727168255 No Longer Active Yolande Lindsay MD PhD Active CYCLOBENZAPRINE HCL 10 MG TABS 1/2 - 1 tab by mouth three times daily if needed for spasms/pain CYCLOBENZAPRINE HCL 96947749050 No Longer Active Yolande Lindsay MD PhD Active TRILEPTAL 600 MG TABS Take one 1/2 tablet in Am and 1 tablet at night OXCARBAZEPINE 17563185621 Active Yolande Lindsay MD PhD Active AZITHROMYCIN 250 MG TABS 2 pills on day 1, then 1 pill daily x 4 days AZITHROMYCIN 80336062360 No Longer Active Yolande Lindsay MD PhD Active XOPENEX 1.25 MG/3ML NEBU 1 neb every 4 hours if needed for cough/congestion LEVALBUTEROL HCL 44530524922 No Longer Active Yolande Lindsay MD PhD Active DOXYCYCLINE HYCLATE 100 MG TAB 1 tab twice a day for 14 days 2013 DOXYCYCLINE HYCLATE 79143974090 No Longer Active Yolande Lindsay MD PhD Active LEVOTHYROXINE SODIUM 75 MCG TABS Take 1 tab daily LEVOTHYROXINE SODIUM 68834741053 Active Yolande Lindsay MD PhD Active PREVACID 30 MG CPDR Take 1 tablet by mouth daily-PRN LANSOPRAZOLE 41377287782 No Longer Active Yolande Lindsay MD PhD Active PA VITAMIN D-3 2000 UNIT CAPS 1 CAP PO DAILY CHOLECALCIFEROL 61081776965 No Longer Active Yolande Lindsay MD PhD Active CEFDINIR 300 MG CAPS by mouth twice a day CEFDINIR 69661965576 No Longer Active Gab Padron MD Active TOPAMAX 50 MG TABS 1 PO twice daily TOPIRAMATE 44127290853 Active Yolande Lindsay MD PhD Active AZITHROMYCIN 250 MG TABS 2 po qd x 1 day, then 1 po qd x 4 days AZITHROMYCIN 56661932302 No Longer Active Yolande Lindsay MD PhD Active DICLOFENAC SODIUM 75 MG TBEC 1 tablet by q 12 hours PRN headaches DICLOFENAC SODIUM 87957684689 No Longer Active Yolande Lindsay MD PhD Active FLONASE 50 MCG/ACT SUSP 1 spray each nostril am and hs FLUTICASONE PROPIONATE 42020008735 No Longer Active Todd Callaway MD Active ANUSOL-HC 25 MG SUPPOSITORY 1 rectally twice a day as needed for hemorrhoids HYDROCORTISONE JAYDEN (RECTAL) 38457448367 No Longer Active Yolande Lindsay MD PhD Active ANUSOL-HC 25 MG SUPPOSITORY 1 suppository rectally each evening as needed for anal fissure HYDROCORTISONE JAYDEN (RECTAL) 77439542493 No Longer Active LONNIE Iglesias Active VALIUM 5 MG TAB 1 po 30 minutes prior to your MRI DIAZEPAM 89442069224 No Longer Active LONNIE Iglesias Active METHOCARBAMOL 750 MG TABS 1 PO QID PRN METHOCARBAMOL 51593798075 No Longer Active Daphne Wetzel PHOTO TECHNOLOGIST Active NITROSTAT 0.4 MG SUBL as directed NITROGLYCERIN 66384403898 No Longer Active Rodrigo Sarah APRN Active ROBAXIN-750 750 MG TABS 2 four times a day for 3 days as needed for muscle spasm, then 1 four times a day as needed METHOCARBAMOL 75343868936 No Longer Active Rodrigo Sarah APRN Active HYDROCODONE-ACETAMINOPHEN 5-325 MG TABS 1 q 4-6 hrs prn HYDROCODONE-ACETAMINOPHEN 20063411285 No Longer Active Silvestrellnacho Sarah APRN Active VERAPAMIL HCL CR 180 MG CR-TABS TAKE 1 TAB DAILY VERAPAMIL HCL 53494641989 No Longer Active Yolande Lindsay MD PhD Active BACTRIM DS 800-160 MG TAB 1 tab by mouth twice daily TRIMETHOPRIM-SULFAMETHOXAZOLE 33658594364 No Longer Active Yolande Lindsay MD PhD Active NEXIUM 40 MG PACK 1 by mouth daily ESOMEPRAZOLE MAGNESIUM 63212430284 No Longer Active Des Hines MD Active EPIPEN 2-CHARLETTE 0.3 MG/0.3ML OMARI as need for allergic reaction EPINEPHRINE 86122750495 Active Yolande Lindsay MD PhD Active LISINOPRIL 10 MG TABS 1 PO Q D FOR BP LISINOPRIL 25510135638 Active Yolande Lindsay MD PhD Active NEXIUM 40 MG CPDR 1 PO Q D DAY ESOMEPRAZOLE MAGNESIUM 97796902700 No Longer Active Sadia Perry RN Active NEXIUM 40 MG PACK 1 by mouth daily NEXIUM 40 MG PACK ESOMEPRAZOLE MAGNESIUM Inactive VERAPAMIL HCL CR 180 MG CR-TABS TAKE 1 TAB DAILY VERAPAMIL HCL CR 180 MG CR-TABS VERAPAMIL HCL Inactive HYDROCODONE-ACETAMINOPHEN 5-325 MG TABS 1 q 4-6 hrs prn HYDROCODONE-ACETAMINOPHEN 5-325 MG TABS 090213 HYDROCODONE-ACETAMINOPHEN Inactive ROBAXIN-750 750 MG TABS 2 four times a day for 3 days as needed for muscle spasm, then 1 four times a day as needed ROBAXIN-750 750 MG TABS 858988 METHOCARBAMOL Inactive NITROSTAT 0.4 MG SUBL as directed NITROSTAT 0.4 MG SUBL NITROGLYCERIN Inactive METHOCARBAMOL 750 MG TABS 1 PO QID PRN METHOCARBAMOL 750 MG TABS 892806 METHOCARBAMOL Inactive VALIUM 5 MG TAB 1 po 30 minutes prior to your MRI VALIUM 5 MG TAB 543539 DIAZEPAM Inactive ANUSOL-HC 25 MG SUPPOSITORY 1 suppository rectally each evening as needed for anal fissure ANUSOL-HC 25 MG SUPPOSITORY 0372386 HYDROCORTISONE JAYDEN (RECTAL) Inactive ANUSOL-HC 25 MG SUPPOSITORY 1 rectally twice a day as needed for hemorrhoids ANUSOL-HC 25 MG SUPPOSITORY 9559447 HYDROCORTISONE JAYDEN (RECTAL) Inactive FLONASE 50 MCG/ACT SUSP 1 spray each nostril am and hs FLONASE 50 MCG/ACT SUSP 927683 FLUTICASONE PROPIONATE Inactive DICLOFENAC SODIUM 75 MG TBEC 1 tablet by q 12 hours PRN headaches DICLOFENAC SODIUM 75 MG TBEC 851463 DICLOFENAC SODIUM Inactive PA VITAMIN D-3 2000 UNIT CAPS 1 CAP PO DAILY PA VITAMIN D-3 2000 UNIT CAPS CHOLECALCIFEROL Inactive PREVACID 30 MG CPDR Take 1 tablet by mouth daily-PRN PREVACID 30 MG CPDR 924065 LANSOPRAZOLE Inactive DOXYCYCLINE HYCLATE 100 MG TAB 1 tab twice a day for 14 days 2013 DOXYCYCLINE HYCLATE 100 MG TAB 899994 DOXYCYCLINE HYCLATE Inactive XOPENEX 1.25 MG/3ML NEBU 1 neb every 4 hours if needed for cough/congestion XOPENEX 1.25 MG/3ML NEBU LEVALBUTEROL HCL Inactive CYCLOBENZAPRINE HCL 10 MG TABS 1/2 - 1 tab by mouth three times daily if needed for spasms/pain CYCLOBENZAPRINE HCL 10 MG TABS 204824 CYCLOBENZAPRINE HCL Inactive ALBUTEROL SULFATE 0.083 % NEBU SOLN one vial per nebulizer every 4-6 hours as needed ALBUTEROL SULFATE 0.083 % NEBU SOLN 789304 ALBUTEROL SULFATE Inactive CEFTIN 500 MG TAB 1 twice a day CEFTIN 500 MG TAB 147805 CEFUROXIME AXETIL Inactive ZOFRAN ODT 4 MG TBDP 1 pill dissolved by mouth every 4 hours if needed for nausea ZOFRAN ODT 4 MG TBDP 174500 ONDANSETRON Inactive ADULT ASPIRIN EC LOW STRENGTH 81 MG TBEC Take 1 tablet by mouth daily 2014 ADULT ASPIRIN EC LOW STRENGTH 81 MG TBEC 049927 ASPIRIN Inactive BACTRIM DS 800-160 MG TAB 1 tab by mouth twice daily BACTRIM DS 800-160 MG TAB TRIMETHOPRIM-SULFAMETHOXAZOLE Inactive AZITHROMYCIN 250 MG TABS 2 po qd x 1 day, then 1 po qd x 4 days AZITHROMYCIN 250 MG TABS 7704015 AZITHROMYCIN Inactive CEFDINIR 300 MG CAPS by mouth twice a day CEFDINIR 300 MG CAPS 534774 CEFDINIR Inactive AZITHROMYCIN 250 MG TABS 2 pills on day 1, then 1 pill daily x 4 days AZITHROMYCIN 250 MG TABS 2902069 AZITHROMYCIN Inactive DOXYCYCLINE HYCLATE 100 MG CAP 1 cap by mouth twice daily DOXYCYCLINE HYCLATE 100 MG CAP 19890510 DOXYCYCLINE HYCLATE Inactive Immunizations Vaccine Administration Date Value Standard Description Seasonal influenza vaccine, injectable, containing preservative, for > 3 years old (Afluria, FluLaval, Fluzone, Fluvirin, Fluarix, Agriflu(>=18 yo)) Fluzone (>3 yrs.) [CCL657] Influenza, seasonal, injectable influenza immunization (Flu Vax) has been administered Influenza - Unspecified Formulation [CVX88] influenza virus vaccine, unspecified formulation Seasonal influenza vaccine, injectable, containing preservative, for > 3 years old (Afluria, FluLaval, Fluzone, Fluvirin, Fluarix, Agriflu(>=18 yo)) Fluzone (>3 yrs.) [FDG884] Influenza, seasonal, injectable pneumococcal immunization administered Pneumovax 23 [CVX33] pneumococcal polysaccharide vaccine, 23 valent dT (Diphtheria and Tetanus) booster given given Td(adult) unspecified formulation Boostrix (Tetanus toxoid, reduced diphtheria toxoid and acellular pertussis vaccine, adsorbed), booster Boostrix [KZW618] tetanus toxoid, reduced diphtheria toxoid, and acellular [...] Name Value Unit Range Description Lab Report: CBC W/DIFF, Basic Metabolic Panel - Chemistry sodium, serum 144 mmol/L [phone]/01/21 potassium, serum 4.2 mmol/L 3.5-5.2 chloride, serum [...] Panel - Chemistry sodium, serum 144 mmol/L [phone]/12/15 potassium, serum 5.4 mmol/L 3.5-5.2 chloride, serum [...] dipstick Negative Negative sodium, serum 143 mmol/L 512-025 2077/10/24 potassium, serum 3.9 mmol/L 3.5-5.2 chloride, serum [...] Negative bilirubin, urine Negative Negative Office Visit: Followup cystoscopy and sling - Chemistry RBC, urine, dipstick negative protein, total urine random negative mg/dL Office Visit: Followup cystoscopy and sling - Urinalysis pH, urine, semiquantitative 6 specific gravity, urine 1.010 ketones, urine, by test strip negative bilirubin, urine negative glucose, urine, semiquantitative negative urinalysis, routine Clean Catch urine color yellow appearance, urine clear leukocyte esterase, urine, by dipstick negative nitrite, urine, semiquantitative negative urobilinogen, urine, semiquantitative (dipstick) negative protein, urine, semiquantitative (dipstick) negative Encounters Code Encounter Date Provider Facility CPT-62165 Level 3 Est. Patient 17:03:46 CDT Yolande Lindsay MD [facility]-44586 Level 4 Est. Patient 20:02:13 APPLICATION SUPPORT ENGINEER Yolande Lindsay MD [facility]-24834 Level 3 Est. Patient 16:02:07 APPLICATION SUPPORT ENGINEER Alexis Ordaz MD [facility]-25401 Level 3 Est. Patient 12:41:24 APPLICATION SUPPORT ENGINEER Yolande Lindsay MD [facility]-76700 Level 3 Est. Patient 15:41:20 APPLICATION SUPPORT ENGINEER Yolande Lindsay MD [facility]-78311 Level 3 Est. Patient 13:20:02 APPLICATION SUPPORT ENGINEER Yolande Lindsay MD [facility]-31558 Level 3 Est. Patient 15:00:38 CDT Jared Og MD -[id number] Level 3 Est. Patient 10:22:32 CDT Yolande Lindsay MD [facility]-37202 Level 3 Est. Patient 17:12:58 CDT Yolande Lindsay MD [facility]-27533 Level 4 Est. Patient 13:30:58 CDT Yolande Lindsay MD [facility] CPT-59773 Level 4 New Patient 09:02:42 CDT Jared Og MD -[id number] Level 3 Est. Patient 08:19:07 CDT Yolande Lindsay MD [facility]63873 Level 3 Est. Patient 12:00:13 APPLICATION SUPPORT ENGINEER Gab Padron MD [facility]-61775 Level 3 Est. Patient 16:15:23 APPLICATION SUPPORT ENGINEER Yolande Lindsay MD [facility]09953 Level 2 Est. Patient 19:47:15 CDT Yolande Lindsay MD [facility]96166 Level 3 Est. Patient 21:38:31 CDT Yolande Lindsay MD [facility]23645 Level 3 Est. Patient 10:25:12 CDT Adiel PERAZA [facility]-12321 Level 4 Est. Patient 10:51:58 CDT Yolande Lindsay MD [facility]-18178 Level 3 Est. Patient 14:04:55 APPLICATION SUPPORT ENGINEER Rodrigo Sarah [facility]-61188 Level 3 Est. Patient 10:46:35 APPLICATION SUPPORT ENGINEER Rodrigo Sarah [facility]-98167 Level 3 Est. Patient 14:24:37 APPLICATION SUPPORT ENGINEER Yolande Lindsay MD [facility]-70710 Level 3 Est. Patient 17:41:58 APPLICATION SUPPORT ENGINEER Yolande Lindsay MD [facility]-36521 Level 2 Est. Patient 22:01:41 APPLICATION SUPPORT ENGINEER Rodrigo Sarah [facility]-69769 Level 2 Est. Patient 22:01:11 APPLICATION SUPPORT ENGINEER Rodrigo Sarah [facility]-68490 Level 3 Est. Patient 10:12:29 APPLICATION SUPPORT ENGINEER Rodrigo Sarah APRN [facility] CPT-93320 Level 3 Est. Patient 11:05:44 CDT Alexis Ordaz MD [facility] CPT-85465 Level 3 Est. Patient 14:57:20 CDT Yolande Lindsay MD [facility] CPT-44897 Level 3 Est. Patient 14:40:57 CDT Yolande Lindsay MD [facility] CPT-49287 Level 3 Est. Patient 20:55:40 CDT Yolande Lindsay MD [facility] CPT-78677 Level 3 Est. Patient 12:42:38 APPLICATION SUPPORT ENGINEER Yolande Lindsay MD [facility] CPT-93163 Level 3 Est. Patient 11:54:49 APPLICATION SUPPORT ENGINEER Des Hines MD [facility] CPT-29368 Level 3 Est. Patient 17:06:38 CDT Dewayne PERAZA [facility] Procedures Code Procedure Name Date Entry Date Standard Description CPT-J1030 Depo Medrol 40 mg (Methyl Prednisolone Acetate) 17:05: 54 CDT CPT-J1100 Decadron 4mg (Dexamethasone) 17:05:54 CDT CPT-56132 Abx/Therapy Injection 17:05:54 CDT CPT-J1100 Decadron 4mg (Dexamethasone) 16:55:28 CDT CPT-J1030 Depo Medrol 40 mg (Methyl Prednisolone Acetate) 16:55: 28 CDT CPT-17131 Ankle Complete - Min 3V 15:58:50 CDT CPT-50082 Knee 3V 15:58:50 CDT CPT-20636 Hip comp min 2V 15:58:50 CDT CPT-J2270 Morphine Sulfate 10 mg 14:25:44 APPLICATION SUPPORT ENGINEER CPT-J2550 Phenergan 12.5 mg (Promethazine) 14:25:44 APPLICATION SUPPORT ENGINEER CPT-84988 Abx/Therapy Injection 14:25:44 APPLICATION SUPPORT ENGINEER CPT-J2550 Phenergan 12.5 mg (Promethazine) 14:08:03 APPLICATION SUPPORT ENGINEER CPT-J2270 Morphine Sulfate 10 mg 14:08:03 APPLICATION SUPPORT ENGINEER CPT-53465 Bladder Scan 15:00:38 CDT CPT-TCMM Transitional Care Mgmt-Moderate 09:52:22 CDT CPT-J1030 Depo Medrol 40 mg (Methyl Prednisolone Acetate) 10:55: 18 CDT CPT-J1100 Decadron 4mg (Dexamethasone) 10:55:18 CDT CPT-06933 Abx/Therapy Injection 10:55:18 CDT CPT-J1030 Depo Medrol 40 mg (Methyl Prednisolone Acetate) 10:22: 32 CDT CPT-J1100 Decadron 4mg (Dexamethasone) 10:22:32 CDT CPT-20825 Postop F/U Visit 14:37:13 CDT CPT-27819 Ankle Complete - Min 3V 17:11:58 CDT CPT-62660 Foot comp min 3V 17:11:58 CDT CPT-15281 Bladder Scan 09:56:58 CDT CPT-33682 Postop F/U Visit 09:56:58 CDT CPT-02812 Cystoscopy 09:02:42 CDT CPT-55710 Bladder Scan 09:02:42 CDT CPT-41294 Abd single AP View 16:00:35 CDT CPT-86274 Administration single or combination vaccine inc oral 10 :15:43 CDT CPT-22317 Influenza split virus > age 3 10:15:43 CDT CPT-57448 Nail Avulsion 09:24:57 CDT CPT-OV Office Visit 11:15:41 CDT CPT-19249 Abx/Therapy Injection 10:51:30 CDT CPT-J3301 Kenalog 40 mg (Triamcinolone Acetonide) 10:25:12 CDT CPT-J1100 Decadron 4mg (Dexamethasone) 10:25:12 CDT CPT-60514 Anoscopy diagnostic 10:36:12 CDT CPT-OV Office Visit 15:34:31 CDT CPT-21456 Abx/Therapy Injection 08:21:15 APPLICATION SUPPORT ENGINEER CPT-J1885 Toradol 60 mg (Ketorolac) 10:46:35 APPLICATION SUPPORT ENGINEER CPT-OV Office Visit 19:51:16 APPLICATION SUPPORT ENGINEER CPT-21732 Spec Collection and Handling Fee 14:34:18 APPLICATION SUPPORT ENGINEER CPT-PV Prev. Care Visit 14:19:18 APPLICATION SUPPORT ENGINEER CPT-05981 Postop F/U Visit 14:47:51 APPLICATION SUPPORT ENGINEER CPT-20678 Postop F/U Visit 15:15:14 APPLICATION SUPPORT ENGINEER CPT-20017 Postop F/U Visit 14:41:43 CDT CPT-47884 Postop F/U Visit 15:47:46 CDT CPT-OV Office Visit 15:27:23 CDT CPT-OV Office Visit 17:20:34 CDT CPT-56811 Abx/Therapy Injection 15:05:57 CDT CPT-J1100 Decadron 8mg (Dexamethasone) 14:44:57 CDT CPT-J1040 Depo Medrol 80 mg (Methyl Prednisolone Acetate) 14:44: 57 CDT CPT-JTINJ Joint Injection 10:17:37 CDT CPT-48283 Administration 2+ single or combination vaccines inc oral 13:01:46 APPLICATION SUPPORT ENGINEER CPT-15877 Administration single or combination vaccine inc oral 13 :01:46 APPLICATION SUPPORT ENGINEER CPT-93155 Pneumovax 13:01:46 APPLICATION SUPPORT ENGINEER CPT-43141 Influenza split virus > age 3 13:01:46 APPLICATION SUPPORT ENGINEER CPT-27507 Administration single or combination vaccine inc oral 08 :56:49 CDT CPT-76979 Tdap 08:56:49 CDT
--- OUTSIDE RECORDS SUMMARY | 2017-03-21 21:32 | XMS REPORT | Clinical Summary ---
Author Author Admin, MARGRET Organization [email or web address] Address Unknown Phone Unavailable Allergies, Adverse Reactions, Alerts Allergy Name Reaction Description Start Date Severity Status Provider VALENTIN Critical Active Rodrigo Montemayorl INS[employer] CHLORHEXIDINE GLUCONATE tongue and gums swollen Critical Active Hoa Kabaford RMA NORFLEX Rash Critical Active Silvestrellina Frazell [employer] TRAZODONE HCL sees things Critical Active Dewayne [...] Old myocardial infarction Pelvic pain 789.09 Active Yoalnde Lindsay MD PhD Abdominal pain, other specified site; multiple sites Edema 782.3 Active Yolande Lindsay MD PhD Edema Rash 782.1 Active Yolande Lindsay MD PhD Rash and other nonspecific skin eruption Back pain, lumbar 724.2 Active Gab Padron MD Lumbago Cough 786.2 Active Jillina Tyrel [employer] Cough 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 Jillina Frazellilian INS[employer] 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 Anemia 285.9 Active Gab Padron MD Anemia, unspecified Conjunctivitis 372.30 Active Jillina Tyrel [employer] Conjunctivitis, unspecified Sinusitis 473.9 Active Jillina Frazell [employer] Unspecified sinusitis (chronic) Nonspecific syndrome suggestive of viral illness 079.99 Active Rodrigo Sarah APRN Unspecified viral infection Laryngitis 464.00 Active Jillina Tyrel [employer] Acute laryngitis without mention of obstruction Abdominal [...] Back pain, thoracic region, left 724.1 Active Silvestrellnacho Montemayorl DAIN Pain in thoracic spine Abdominal pain, left lower quadrant 789.04 Active Gab Padron MD Abdominal pain, left lower quadrant Slowing of urinary stream 788.62 Active Gab Padron MD Slowing of urinary stream Interstitial cystitis 595.1 Active Gab Padron MD Chronic interstitial cystitis Flank Pain Active Jared Og MD Abdominal pain, unspecified site FOOT PAIN, RIGHT ICD-729.5 Inactive [...] ICD-703.0 Inactive Yolande Lindsay MD PhD INGRROGELIO ANGELAL ICD-703.0 Inactive Yolande Lindsay MD PhD [...] TBDP 1 po q6hr PRN Nausea ONDANSETRON 79406235931 Active Jillina Frazell [employer] Active IBUPROFEN 600 MG TAB 1 tablet by mouth every 6 hours for 7 days, then 1 tablet every 6 hours as needed. Take with food IBUPROFEN 45262089750 Active Jillina Frazell [employer] Active BACTRIM DS 800-160 MG TAB 1 tab by mouth twice daily TRIMETHOPRIM-SULFAMETHOXAZOLE 13270746892 No Longer Active Gab Padron MD Active ADVAIR DISKUS 250-50 MCG/DOSE AEPB 1 puff BID FLUTICASONE- SALMETEROL 60119012052 Active Jillina Frazell [employer] Active LEVOTHYROXINE SODIUM 75 MCG TABS Take 1 tab daily LEVOTHYROXINE SODIUM 96814102277 No Longer Active Mariana FLEMING Active SYNTHROID 88 MCG ORAL TABS Take one by mouth daily LEVOTHYROXINE SODIUM 44177685266 Active Mariana FLEMING Active CHERATUSSIN AC 100-10 MG/5ML SYRP 1 tsp by mouth every 4 hours as needed for cough GUAIFENESIN-CODEINE 03454606062 No Longer Active Gab Padron MD Active POLYTRIM 81908-0.1 UNIT/ML-% SOLN 1 gtt to affected eye q3h x 7 days POLYMYXIN B-TRIMETHOPRIM 35501522032 No Longer Active Gab Padron MD Active FLUTICASONE PROPIONATE 50 MCG/ACT SUSP 1 to 2 sprays each nostril daily 04/21 FLUTICASONE PROPIONATE 22467637630 No Longer Active Gab Padron MD Active TRILEPTAL 600 MG TABS Take one 1 tablet in Am and 1 tablet at night OXCARBAZEPINE 97366852541 Active Gab Padron MD Active CEFDINIR 300 MG CAPS 1 po BID x 10 days CEFDINIR 67284859959 No Longer Active Rodrigo Sarah APRN Active CEFTIN 500 MG TAB 1 twice a day CEFUROXIME AXETIL 97528322690 No Longer Active Gab Padron MD Active AZITHROMYCIN 250 MG TABS 2 po qd x 1 day, then 1 po qd x 4 days AZITHROMYCIN 94699054192 No Longer Active Rodrigo Sarah APRN Active CLARITIN 10 MG TAB 1 tablet by mouth daily as needed for allergies LORATADINE 47426583476 Active Silvestrellnacho Sarah APRN Active OXYCODONE HCL 5 MG ORAL CAPS 1 TAB PO Q HS OXYCODONE HCL 19274730938 No Longer Active Rodrigo Sarah APRN Active NIASPAN 500 MG ORAL CR-TABS 1 pill nightly x 1 week, then 2 pills nightly x 1 week, then 3 pills nightly x 1 week, then 4 pills nightly NIACIN (ANTIHYPERLIPIDEMIC) 65378784001 No Longer Active Rodrigo Sarah APRN Active NIACIN 500 MG TABS 1 pill by mouth nightly x 1 week, then 2 pills x 1 week, then 3 pills x 1 week, then 4 pills nightly - take after evening meal, with applesauce or an apple NIACIN 13931912967 No Longer Active Yolande Lindsay MD PhD Active FISH OIL 1000 MG CAPS 3 pills daily OMEGA-3 FATTY ACIDS 15280810429 Active Yolande Lindsay MD PhD Active TRIAMCINOLONE ACETONIDE 0.1 % CREA apply bid sparingly to rash TRIAMCINOLONE ACETONIDE 10732019505 Active Yolande Lindsay MD PhD Active FUROSEMIDE 20 MG TAB 1 tablet by mouth daily FUROSEMIDE 95150322698 Active Tisha Lambert APRN Active LISINOPRIL 20 MG ORAL TABS 1 tab by mouth daily LISINOPRIL 80112988741 Active Gab Padron MD Active FUROSEMIDE 20 MG TABS 1 pill by mouth daily, for edema FUROSEMIDE 43891421093 No Longer Active Yolande Lindsay MD PhD Active ATORVASTATIN CALCIUM 10 MG TABS 1 pill by mouth daily, for cholesterol 09/06 ATORVASTATIN CALCIUM 62033302373 Active Gab Padron MD Active CALCIUM 600+D PLUS MINERALS 600-400 MG-UNIT ORAL CHEW 1 tab by mouth daily CALCIUM CARBONATE-VIT D-MIN 98353512186 No Longer Active Yolande Lindsay MD PhD Active CYCLOBENZAPRINE HCL 10 MG TABS 1 tablet by mouth three times daily as needed for muscle spasm/pain CYCLOBENZAPRINE HCL 08747893315 Active Yolande Lindsay MD PhD Active ONDANSETRON 4 MG TBDP 1 q4h PRN nausea ONDANSETRON 27601761765 Active Yolande Lindsay MD PhD Active ADULT ASPIRIN EC LOW STRENGTH 81 MG TBEC Take 1 tablet by mouth daily 2014 ASPIRIN 18095390632 No Longer Active Yolande Lindsay MD PhD Active ZOFRAN ODT 4 MG TBDP 1 pill dissolved by mouth every 4 hours if needed for nausea ONDANSETRON 90824647331 No Longer Active Yolande Lindsay MD PhD Active CEFTIN 500 MG TAB 1 twice a day CEFUROXIME AXETIL 08535180129 No Longer Active Yolande Lindsay MD PhD Active ALBUTEROL SULFATE 0.083 % NEBU SOLN one vial per nebulizer every 4-6 hours as needed ALBUTEROL SULFATE 58863411786 No Longer Active Alexis Ordaz MD Active DOXYCYCLINE HYCLATE 100 MG CAP 1 cap by mouth twice daily DOXYCYCLINE HYCLATE 44758349502 No Longer Active Yolande Lindsay MD PhD Active CYCLOBENZAPRINE HCL 10 MG TABS 1/2 - 1 tab by mouth three times daily if needed for spasms/pain CYCLOBENZAPRINE HCL 97292214988 No Longer Active Yolande Lindsay MD PhD Active AZITHROMYCIN 250 MG TABS 2 pills on day 1, then 1 pill daily x 4 days AZITHROMYCIN 83330745824 No Longer Active Yolande Lindsay MD PhD Active XOPENEX 1.25 MG/3ML NEBU 1 neb every 4 hours if needed for cough/congestion LEVALBUTEROL HCL 40094295336 No Longer Active Yolande Lindsay MD PhD Active DOXYCYCLINE HYCLATE 100 MG TAB 1 tab twice a day for 14 days 2013 DOXYCYCLINE HYCLATE 05171318121 No Longer Active Yolande Lindsay MD PhD Active PREVACID 30 MG CPDR Take 1 tablet by mouth daily-PRN LANSOPRAZOLE 86518784144 No Longer Active Yolande Lindsay MD PhD Active PA VITAMIN D-3 2000 UNIT CAPS 1 CAP PO DAILY CHOLECALCIFEROL 98276224036 No Longer Active Yolande Lindsay MD PhD Active CEFDINIR 300 MG CAPS by mouth twice a day CEFDINIR 98459400107 No Longer Active Gab Padron MD Active TOPAMAX 50 MG TABS 1 PO twice daily TOPIRAMATE 08280171336 Active Yolande Lindsay MD PhD Active AZITHROMYCIN 250 MG TABS 2 po qd x 1 day, then 1 po qd x 4 days AZITHROMYCIN 51879968968 No Longer Active Yolande Lindsay MD PhD Active DICLOFENAC SODIUM 75 MG TBEC 1 tablet by q 12 hours PRN headaches DICLOFENAC SODIUM 69151839052 No Longer Active Yolande Lindsay MD PhD Active FLONASE 50 MCG/ACT SUSP 1 spray each nostril am and hs FLUTICASONE PROPIONATE 95156280373 No Longer Active Todd Callaway MD Active ANUSOL-HC 25 MG SUPPOSITORY 1 rectally twice a day as needed for hemorrhoids HYDROCORTISONE JAYDEN (RECTAL) 96084926727 No Longer Active Yolande Lindsay MD PhD Active ANUSOL-HC 25 MG SUPPOSITORY 1 suppository rectally each evening as needed for anal fissure HYDROCORTISONE JAYDEN (RECTAL) 36293989182 No Longer Active LONNIE Iglesias Active VALIUM 5 MG TAB 1 po 30 minutes prior to your MRI DIAZEPAM 10244487551 No Longer Active LONNIE Iglesias Active METHOCARBAMOL 750 MG TABS 1 PO QID PRN METHOCARBAMOL 16535322832 No Longer Active Daphne Wetzel APRN Active NITROSTAT 0.4 MG SUBL as directed NITROGLYCERIN 48584042455 No Longer Active Rodrigo Sarah APRN Active ROBAXIN-750 750 MG TABS 2 four times a day for 3 days as needed for muscle spasm, then 1 four times a day as needed METHOCARBAMOL 90176617101 No Longer Active Rodrigo Sarah APRN Active HYDROCODONE-ACETAMINOPHEN 5-325 MG TABS 1 q 4-6 hrs prn HYDROCODONE-ACETAMINOPHEN 60058572469 No Longer Active Rodrigo Sarah APRN Active VERAPAMIL HCL CR 180 MG CR-TABS TAKE 1 TAB DAILY VERAPAMIL HCL 77787203417 No Longer Active Yolande Lindsay MD PhD Active BACTRIM DS 800-160 MG TAB 1 tab by mouth twice daily TRIMETHOPRIM-SULFAMETHOXAZOLE 60845367517 No Longer Active Yolande Lindsay MD PhD Active NEXIUM 40 MG PACK 1 by mouth daily ESOMEPRAZOLE MAGNESIUM 05274982715 No Longer Active Des Hines MD Active EPIPEN 2-CHARLETTE 0.3 MG/0.3ML OMARI as need for allergic reaction EPINEPHRINE 19537353235 Active Yolande Lindsay MD PhD Active NEXIUM 40 MG CPDR 1 PO Q D DAY ESOMEPRAZOLE MAGNESIUM 96294035369 No Longer Active Sadia Perry RN Active NEXIUM 40 MG PACK 1 by mouth daily NEXIUM 40 MG PACK ESOMEPRAZOLE MAGNESIUM Inactive VERAPAMIL HCL CR 180 MG CR-TABS TAKE 1 TAB DAILY VERAPAMIL HCL CR 180 MG CR-TABS VERAPAMIL HCL Inactive HYDROCODONE-ACETAMINOPHEN 5-325 MG TABS 1 q 4-6 hrs prn HYDROCODONE-ACETAMINOPHEN 5-325 MG TABS 104240 HYDROCODONE-ACETAMINOPHEN Inactive ROBAXIN-750 750 MG TABS 2 four times a day for 3 days as needed for muscle spasm, then 1 four times a day as needed ROBAXIN-750 750 MG TABS 895629 METHOCARBAMOL Inactive NITROSTAT 0.4 MG SUBL as directed NITROSTAT 0.4 MG SUBL NITROGLYCERIN Inactive METHOCARBAMOL 750 MG TABS 1 PO QID PRN METHOCARBAMOL 750 MG TABS 210171 METHOCARBAMOL Inactive VALIUM 5 MG TAB 1 po 30 minutes prior to your MRI VALIUM 5 MG TAB 841057 DIAZEPAM Inactive ANUSOL-HC 25 MG SUPPOSITORY 1 suppository rectally each evening as needed for anal fissure ANUSOL-HC 25 MG SUPPOSITORY 6501172 HYDROCORTISONE JAYDEN (RECTAL) Inactive ANUSOL-HC 25 MG SUPPOSITORY 1 rectally twice a day as needed for hemorrhoids ANUSOL-HC 25 MG SUPPOSITORY 9363629 HYDROCORTISONE JAYDEN (RECTAL) Inactive FLONASE 50 MCG/ACT SUSP 1 spray each nostril am and hs FLONASE 50 MCG/ACT SUSP FLUTICASONE PROPIONATE Inactive DICLOFENAC SODIUM 75 MG TBEC 1 tablet by q 12 hours PRN headaches DICLOFENAC SODIUM 75 MG TBEC 431237 DICLOFENAC SODIUM Inactive PA VITAMIN D-3 2000 UNIT CAPS 1 CAP PO DAILY PA VITAMIN D-3 2000 UNIT CAPS CHOLECALCIFEROL Inactive PREVACID 30 MG CPDR Take 1 tablet by mouth daily-PRN PREVACID 30 MG CPDR 951251 LANSOPRAZOLE Inactive DOXYCYCLINE HYCLATE 100 MG TAB 1 tab twice a day for 14 days 2013 DOXYCYCLINE HYCLATE 100 MG TAB 9605656 DOXYCYCLINE HYCLATE Inactive XOPENEX 1.25 MG/3ML NEBU 1 neb every 4 hours if needed for cough/congestion XOPENEX 1.25 MG/3ML NEBU 571718 LEVALBUTEROL HCL Inactive CYCLOBENZAPRINE HCL 10 MG TABS 1/2 - 1 tab by mouth three times daily if needed for spasms/pain CYCLOBENZAPRINE HCL 10 MG TABS 997908 CYCLOBENZAPRINE HCL Inactive ALBUTEROL SULFATE 0.083 % NEBU SOLN one vial per nebulizer every 4-6 hours as needed ALBUTEROL SULFATE 0.083 % NEBU SOLN 851036 ALBUTEROL SULFATE Inactive CEFTIN 500 MG TAB 1 twice a day CEFTIN 500 MG TAB 496289 CEFUROXIME AXETIL Inactive ZOFRAN ODT 4 MG TBDP 1 pill dissolved by mouth every 4 hours if needed for nausea ZOFRAN ODT 4 MG TBDP 775053 ONDANSETRON Inactive ADULT ASPIRIN EC LOW STRENGTH 81 MG TBEC Take 1 tablet by mouth daily 2014 ADULT ASPIRIN EC LOW STRENGTH 81 MG TBEC 882670 ASPIRIN Inactive CALCIUM 600+D PLUS MINERALS 600-400 [...] or an apple NIACIN 500 MG TABS 064271 NIACIN Inactive NIASPAN 500 MG ORAL CR-TABS 1 pill nightly x 1 week, then 2 pills nightly x 1 week, then 3 pills nightly x 1 week, then 4 pills nightly NIASPAN 500 MG ORAL CR-TABS NIACIN (ANTIHYPERLIPIDEMIC) Inactive OXYCODONE HCL 5 MG ORAL CAPS 1 TAB PO Q HS OXYCODONE HCL 5 MG ORAL CAPS 9536573 OXYCODONE HCL Inactive FLUTICASONE PROPIONATE 50 MCG/ACT SUSP 1 to 2 sprays each nostril daily 04/21 FLUTICASONE PROPIONATE 50 MCG/ACT SUSP 278206 FLUTICASONE PROPIONATE Inactive POLYTRIM 16081-0.1 UNIT/ML-% SOLN 1 gtt to affected eye q3h x 7 days POLYTRIM 67718-6.1 UNIT/ML-% SOLN 851392 POLYMYXIN B- TRIMETHOPRIM Inactive CHERATUSSIN AC 100-10 MG/5ML SYRP 1 tsp by mouth every 4 hours as needed for cough CHERATUSSIN AC 100-10 MG/5ML SYRP 068633 GUAIFENESIN-CODEINE Inactive LEVOTHYROXINE SODIUM 75 MCG TABS Take 1 tab daily LEVOTHYROXINE SODIUM 75 MCG TABS 528193 LEVOTHYROXINE SODIUM Inactive BACTRIM DS 800-160 MG TAB 1 tab by mouth twice daily BACTRIM DS 800-160 MG TAB 980153 TRIMETHOPRIM-SULFAMETHOXAZOLE Inactive AZITHROMYCIN 250 MG TABS 2 po qd x 1 day, then 1 po qd x 4 days AZITHROMYCIN 250 MG TABS 2615622 AZITHROMYCIN Inactive CEFDINIR 300 MG CAPS by mouth twice a day CEFDINIR 300 MG CAPS 20020708 CEFDINIR Inactive AZITHROMYCIN 250 MG TABS 2 pills on day 1, then 1 pill daily x 4 days AZITHROMYCIN 250 MG TABS 5660901 AZITHROMYCIN Inactive DOXYCYCLINE HYCLATE 100 MG CAP 1 cap by mouth twice daily DOXYCYCLINE HYCLATE 100 MG CAP 6285537 DOXYCYCLINE HYCLATE Inactive FUROSEMIDE 20 MG TABS 1 pill by mouth daily, for edema FUROSEMIDE 20 MG TABS 854312 FUROSEMIDE Inactive AZITHROMYCIN 250 MG TABS 2 po qd x 1 day, then 1 po qd x 4 days AZITHROMYCIN 250 MG TABS 0234558 AZITHROMYCIN Inactive CEFTIN 500 MG TAB 1 twice a day CEFTIN 500 MG TAB 041437 CEFUROXIME AXETIL Inactive CEFDINIR 300 MG CAPS 1 po BID x 10 days CEFDINIR 300 MG CAPS 20020708 CEFDINIR Inactive BACTRIM DS 800-160 MG TAB 1 tab by mouth twice daily BACTRIM DS 800-160 MG TAB 538195 TRIMETHOPRIM-SULFAMETHOXAZOLE Inactive Immunizations Vaccine Administration Date Value Standard Description Seasonal influenza vaccine, injectable, containing preservative, for > 3 years old (Afluria, FluLaval, Fluzone, Fluvirin, Fluarix, Agriflu(>=18 yo)) Fluzone (>3 yrs.) [FWQ622] Influenza, seasonal, injectable influenza immunization (Flu Vax) has been administered Influenza - Unspecified Formulation [CVX88] influenza virus vaccine, unspecified formulation Seasonal influenza vaccine, injectable, containing preservative, for > 3 years old (Afluria, FluLaval, Fluzone, Fluvirin, Fluarix, Agriflu(>=18 yo)) Fluzone (>3 yrs.) [LFC027] Influenza, seasonal, injectable pneumococcal immunization administered Pneumovax 23 [CVX33] pneumococcal polysaccharide vaccine, 23 valent dT (Diphtheria and Tetanus) booster given given Td(adult) unspecified formulation Boostrix (Tetanus toxoid, reduced diphtheria toxoid and acellular pertussis vaccine, adsorbed), booster Boostrix [UQZ733] tetanus toxoid, reduced diphtheria toxoid, and acellular [...] Panel - Chemistry sodium, serum 142 mmol/L 588-670 7614/06/30 potassium, serum 4.4 mmol/L 3.5-5.2 chloride, serum 108 mmol/L 98-107 carbon dioxide, venous blood 25.1 mmol/L 21.0-32.0 blood glucose 82 mg/dL 65-110 calcium, serum 9.1 mg/dL 8.5-10.1 urea nitrogen, blood 18 mg/dL 7-18 creatinine, serum 1.31 mg/dL 0.55-1.30 Lab Report: [facility] Advanced Lipid and Inlammation Panel /32607 - Chemistry cholesterol, serum 148 mg/dL 324-022 9778/09/02 HDL cholesterol, serum 55 mg/dL > OR=46 [...] (L) - Chemistry sodium, serum 145 mmol/L 378-496 1500/09/02 potassium, serum 4.6 mmol/L 3.5-5.2 chloride, serum [...] Rate - Chemistry sodium, serum 139 mmol/L 424-644 1540/03/24 carbon dioxide, venous blood 22.4 mmol/L 21.0-32.0 [...] ... - Chemistry sodium, serum 143 mmol/L 357-763 0795/05/02 carbon dioxide, venous blood 25.6 mmol/L 21.0-32.0 [...] Negative mg/dL Negative sodium, serum 142 mmol/L 213-614 1509/07/18 carbon dioxide, venous blood 27.8 mmol/L 21.0-32.0 [...] mg/dL Encounters Code Encounter Date Provider Facility CPT-12915 Level 3 Est. Patient 15:27:02 CDT Jared Og MD [facility] [place] CPT-49711 Level 4 Est. Patient 09:25:27 CDT Gab Padron MD [facility] CPT-65086 Level 3 Est. Patient 10:29:41 CDT Rodrigo Sarah APRN [facility] CPT-91289 Level 4 Est. Patient 17:51:05 CDT Gab Padron MD [facility] CPT-36218 Level 3 Est. Patient 14:18:08 CDT Gab Padron MD [facility] CPT-67998 Level 4 Est. Patient 10:18:54 CDT Gab Padron MD [facility] CPT-76610 Level 3 Est. Patient 11:30:07 CDT Rodrigo Sarah APRN [facility] CPT-20598 Level 4 Est. Patient 21:02:30 SLIMER Gab Padron MD [facility]-68798 Level 3 Est. Patient 11:02:19 SLIMER Gab Padron MD [facility]-04235 Level 4 Est. Patient 22:24:31 SLIMER Gab Padron MD [facility]-59071 Level 3 Est. Patient 18:33:46 SLIMER Gab Padron MD [facility]-06799 Level 3 Est. Patient 16:19:11 CDT Yolande Lindsay MD [facility]-53516 Level 3 Est. Patient 18:59:14 CDT Yolande Lindsay MD [facility]-17596 Level 4 Est. Patient 21:29:26 CDT Yolande Lindsay MD [facility]-72917 Level 3 Est. Patient 07:37:45 CDT Yolande Lindsay MD [facility]-07500 Level 3 Est. Patient 17:03:46 CDT Yolande Lindsay MD [facility]-71977 Level 4 Est. Patient 20:02:13 SLIMER Yolande Lindsay MD [facility]-84385 Level 3 Est. Patient 16:02:07 SLIMER Alexis Ordaz MD [facility]-32010 Level 3 Est. Patient 12:41:24 SLIMER Yolande Lindsay MD [facility]-87805 Level 3 Est. Patient 15:41:20 SLIMER Yolande Lindsay MD [facility]-36889 Level 3 Est. Patient 13:20:02 SLIMER Yolande Lindsay MD [facility]-40371 Level 3 Est. Patient 15:00:38 CDT Jared Og MD [facility]-77732 Level 3 Est. Patient 10:22:32 CDT Yolande Lindsay MD [facility]-99943 Level 3 Est. Patient 17:12:58 CDT Yolande Lindsay MD [facility]-81189 Level 4 Est. Patient 13:30:58 CDT Yolande Lindsay MD [facility]-83166 Level 4 New Patient 09:02:42 CDT Jared Og MD [facility]-59230 Level 3 Est. Patient 08:19:07 CDT Yolande Lindsay MD [facility]-48670 Level 3 Est. Patient 12:00:13 SLIMER Gab Padron MD [facility]-59213 Level 3 Est. Patient 16:15:23 SLIMER Yolande Lindsay MD [facility] CPT-37856 Level 2 Est. Patient 19:47:15 CDT Yolande Lindsay MD [facility]-15760 Level 3 Est. Patient 21:38:31 CDT Yolande Lindsay MD [facility]-89093 Level 3 Est. Patient 10:25:12 CDT Adiel PERAZA [facility] CPT-69685 Level 4 Est. Patient 10:51:58 CDT Yolande Lindsay MD [facility]-63228 Level 3 Est. Patient 14:04:55 SLIMER Rodrigo Sarah [facility]-95019 Level 3 Est. Patient 10:46:35 SLIMER Rodrigo Sarah [facility] CPT-27055 Level 3 Est. Patient 14:24:37 SLIMER Yolande Lindsay MD PhD [facility] CPT-37446 Level 3 Est. Patient 17:41:58 SLIMER Yolande Lindsay MD [facility] CPT-51283 Level 2 Est. Patient 22:01:41 SLIMER Rodrigo Sarah [facility] CPT-96243 Level 2 Est. Patient 22:01:11 SLIMER Rodrigo Sarah [facility] CPT-88919 Level 3 Est. Patient 10:12:29 SLIMER Rodrigo Sarah [facility] CPT-93527 Level 3 Est. Patient 11:05:44 CDT Alexis Ordaz MD [facility] CPT-84656 Level 3 Est. Patient 14:57:20 CDT Yolande Lindsay MD [facility] CPT-52653 Level 3 Est. Patient 14:40:57 CDT Yolande Lindsay MD [facility] CPT-98818 Level 3 Est. Patient 20:55:40 CDT Yolande Lindsay MD [facility] CPT-90703 Level 3 Est. Patient 12:42:38 SLIMER Yolande Lindsay MD [facility] CPT-36468 Level 3 Est. Patient 11:54:49 SLIMER Des Hines MD [facility] CPT-30364 Level 3 Est. Patient 17:06:38 CDT Dewayne PERAZA [facility] Procedures Code Procedure Name Date Entry Date Standard Description CPT-93798 Abd single AP View - XRAY USE ONLY 11:16:17 CDT CPT-43679 T spine AP/ Lat - XRAY USE ONLY 09:34:21 CDT CPT-26417 Chest 2V Frontal and Lat - XRAY USE ONLY 10:48:51 CDT CPT-37107 LS spine comp w obliq 13:28:00 SLIMER CPT-J1040 Depo Medrol 80 mg (Methyl Prednisolone Acetate) 10:51: 28 SLIMER CPT-J1100 Decadron 8mg (Dexamethasone) 10:51:28 SLIMER CPT-73655 Abx/Therapy Injection 10:51:28 SLIMER CPT-J1100 Decadron 8mg (Dexamethasone) 21:02:30 SLIMER CPT-J1040 Depo Medrol 80 mg (Methyl Prednisolone Acetate) 21:02: 30 SLIMER [id number] Event Monitor - MC Transmission 09:12:32 CDT 08/06 [id number] Event Monitor - MC review and interp 09:12:32 CDT [id number] Event Monitor - MC recording 09:12:32 CDT CPT-15355 EKG Trac and Interp 16:50:22 CDT CPT-J1030 Depo Medrol 40 mg (Methyl Prednisolone Acetate) 17:05: 54 CDT CPT-J1100 Decadron 4mg (Dexamethasone) 17:05:54 CDT CPT-78403 Abx/Therapy Injection 17:05:54 CDT CPT-J1100 Decadron 4mg (Dexamethasone) 16:55:28 CDT CPT-J1030 Depo Medrol 40 mg (Methyl Prednisolone Acetate) 16:55: 28 CDT CPT-94480 Ankle Complete - Min 3V 15:58:50 CDT CPT-29717 Knee 3V 15:58:50 CDT CPT-33104 Hip comp min 2V 15:58:50 CDT CPT-J2270 Morphine Sulfate 10 mg 14:25:44 SLIMER CPT-J2550 Phenergan 12.5 mg (Promethazine) 14:25:44 SLIMER CPT-35352 Abx/Therapy Injection 14:25:44 SLIMER CPT-J2550 Phenergan 12.5 mg (Promethazine) 14:08:03 SLIMER CPT-J2270 Morphine Sulfate 10 mg 14:08:03 SLIMER CPT-73550 Bladder Scan 15:00:38 CDT CPT-TCMM Transitional Care Mgmt-Moderate 09:52:22 CDT CPT-J1030 Depo Medrol 40 mg (Methyl Prednisolone Acetate) 10:55: 18 CDT CPT-J1100 Decadron 4mg (Dexamethasone) 10:55:18 CDT CPT-55395 Abx/Therapy Injection 10:55:18 CDT CPT-J1030 Depo Medrol 40 mg (Methyl Prednisolone Acetate) 10:22: 32 CDT CPT-J1100 Decadron 4mg (Dexamethasone) 10:22:32 CDT CPT-51820 Postop F/U Visit 14:37:13 CDT CPT-85153 Ankle Complete - Min 3V 17:11:58 CDT CPT-76579 Foot comp min 3V 17:11:58 CDT CPT-23492 Bladder Scan 09:56:58 CDT CPT-64560 Postop F/U Visit 09:56:58 CDT CPT-87810 Cystoscopy 09:02:42 CDT CPT-35324 Bladder Scan 09:02:42 CDT CPT-81881 Abd single AP View 16:00:35 CDT CPT-31324 Administration single or combination vaccine inc oral 10 :15:43 CDT CPT-14528 Influenza split virus > age 3 10:15:43 CDT CPT-97062 Nail Avulsion 09:24:57 CDT CPT-OV Office Visit 11:15:41 CDT CPT-22840 Abx/Therapy Injection 10:51:30 CDT CPT-J3301 Kenalog 40 mg (Triamcinolone Acetonide) 10:25:12 CDT CPT-J1100 Decadron 4mg (Dexamethasone) 10:25:12 CDT CPT-43411 Anoscopy diagnostic 10:36:12 CDT CPT-OV Office Visit 15:34:31 CDT CPT-56942 Abx/Therapy Injection 08:21:15 SLIMER CPT-J1885 Toradol 60 mg (Ketorolac) 10:46:35 SLIMER CPT-OV Office Visit 19:51:16 SLIMER CPT-78938 Spec Collection and Handling Fee 14:34:18 SLIMER CPT-PV Prev. Care Visit 14:19:18 SLIMER CPT-34990 Postop F/U Visit 14:47:51 SLIMER CPT-10998 Postop F/U Visit 15:15:14 SLIMER CPT-29525 Postop F/U Visit 14:41:43 CDT CPT-76752 Postop F/U Visit 15:47:46 CDT CPT-OV Office Visit 15:27:23 CDT CPT-OV Office Visit 17:20:34 CDT CPT-44307 Abx/Therapy Injection 15:05:57 CDT CPT-J1100 Decadron 8mg (Dexamethasone) 14:44:57 CDT CPT-J1040 Depo Medrol 80 mg (Methyl Prednisolone Acetate) 14:44: 57 CDT CPT-JTINJ Joint Injection 10:17:37 CDT CPT-87388 Administration 2+ single or combination vaccines inc oral 13:01:46 SLIMER CPT-65088 Administration single or combination vaccine inc oral 13 :01:46 SLIMER CPT-17367 Pneumovax 13:01:46 SLIMER CPT-08804 Influenza split virus > age 3 13:01:46 SLIMER CPT-31483 Administration single or combination vaccine inc oral 08 :56:49 CDT CPT-57082 Tdap 08:56:49 CDT
--- OUTSIDE RECORDS SUMMARY | 2017-03-21 21:33 | XMS REPORT ---
Author Author [facility] Medical Staff Organization [facility] Address [address] [place] [id number] Phone [phone] Care Team Providers Care Shells Inspector Name Role Phone LENKA HUTSON, EUNICE PP [phone] Summary purpose TRANSITION OF CARE AUTO GENERATION [...] Status Finding Observation Time IV Site Location LAC :35 IV Type peripheral :35 IV Site Information discontinued :35 IV Site Start Attmpt 2 times 63-19-081102:30 IV Site [place] 20 :35 IV Site Appearance WNL :35 IV Site Color clear 04-52-799399:35 IV Site Patent yes [id number] Dressing Changed yes [id number]:35 Dressing Type gauze 57-22-004808:35 Nursing Note Second set of scans completed. Dischare teaching povided and pt verbalized understanding. Denies further needs or questions. Denies any chest pain. Thank you card and snck provided and pt ambulated out in good condition. 10-30-2014 10:15 Vital signs Type Value Date Height 64inches 17-29-401647:30 Weight 232LB 77-05-254904:30 Social history No Social History or smoking status observations were recorded for this visit. ( Unknown if ever smoked.) Treatment Plan No treatment plan text is available for this visit. Hospital discharge instructions Discharge Date/Time 10/30/14 1015 Accompanied By Self Dismissal Condition good Disposition on DC home Valuables yes Valuable Type billfold/purse Valuables Returned T patient DC Inst/Educ Give yes Exit Care Educ Given yes
--- OUTSIDE RECORDS SUMMARY | 2017-03-21 21:33 | XMS REPORT ---
Author Author [facility] Medical Staff Organization [facility] Address [address] [place] [id number] Phone [phone] Care Team Providers Care Supply Manager Name Role Phone EVELYN SPEARS MD PP [phone] Summary purpose TRANSITION OF CARE AUTO GENERATION [...] Functional Status Finding Observation Time Diet regular :20 Abdomen Appearance obese :20 Abdomen soft :20 Bajwa no 62-22-206070:20 Urination normal :20 Quality sym/unlabored :20 Cough non-productive :20 Secretions no :20 Breath Sounds RUL clear : Breath Sounds RML clear :20 Breath Sounds RLL clear :20 Breath Sounds LESLIE clear : Breath Sounds LLL clear :20 Airway natural : Chest Tube no : Oxygen no : Temp >100.4 no :20 [...] per minute : Pulse 87beats per minute : Oxygen Saturation 100% :00 BP Systolic 119mmHg [...]
--- OUTSIDE RECORDS SUMMARY | 2017-03-21 21:33 | XMS REPORT | Clinical Summary ---
Author Author Admin, MARGRET Organization [facility] Address Unknown Phone Unavailable Allergies, Adverse Reactions, Alerts Allergy Name Reaction Description Start Date Severity Status Provider CHLORHEXIDINE GLUCONATE tongue and gums swollen Critical Active Hoa Otto RMA NORFLEX Rash Critical Active Rodrigo Sarah RELIABILITY MANAGER TRAZODONE HCL sees things Critical Active [...] pill by mouth daily, for edema FUROSEMIDE 61980793831 No Longer Active Yolande Lindsay MD PhD Active FISH OIL 1000 MG CAPS 1 pill daily x 1 week, then 2 pills daily x 1 week, then 3 pills daily x 1 week, then 4 pills daily OMEGA-3 FATTY ACIDS 19622532759 Active Yolande Lindsay MD PhD Active NIACIN 500 MG TABS 1 pill by mouth nightly x 1 week, then 2 pills x 1 week, then 3 pills x 1 week, then 4 pills nightly - take after evening meal, with applesauce or an apple NIACIN 03693060967 Active Yolande Lindsay MD PhD Active ATORVASTATIN CALCIUM 10 MG TABS 1 pill by mouth daily, for cholesterol 09/06 ATORVASTATIN CALCIUM 20368519078 Active Yolande Lindsay MD PhD Active CALCIUM 600+D PLUS MINERALS 600-400 MG-UNIT ORAL CHEW 1 tab by mouth daily CALCIUM CARBONATE-VIT D-MIN 30726421827 No Longer Active Yolande Lindsay MD PhD Active CYCLOBENZAPRINE HCL 10 MG TABS 1 tablet by mouth three times daily as needed for muscle spasm/pain CYCLOBENZAPRINE HCL 07091946183 Active Yolande Lindsay MD PhD Active ONDANSETRON 4 MG TBDP 1 q4h PRN nausea ONDANSETRON 07733056678 Active Yolande Lindsay MD PhD Active ADULT ASPIRIN EC LOW STRENGTH 81 MG TBEC Take 1 tablet by mouth daily 2014 ASPIRIN 72738637990 No Longer Active Yolande Lindsay MD PhD Active ZOFRAN ODT 4 MG TBDP 1 pill dissolved by mouth every 4 hours if needed for nausea ONDANSETRON 43885379758 No Longer Active Yolande Lindsay MD PhD Active CEFTIN 500 MG TAB 1 twice a day CEFUROXIME AXETIL 26299508295 No Longer Active Yolande Lindsay MD PhD Active ALBUTEROL SULFATE 0.083 % NEBU SOLN one vial per nebulizer every 4-6 hours as needed ALBUTEROL SULFATE 50085433030 No Longer Active Alexis Ordaz MD Active DOXYCYCLINE HYCLATE 100 MG CAP 1 cap by mouth twice daily DOXYCYCLINE HYCLATE 58215103346 No Longer Active Yolande Lindsay MD PhD Active CYCLOBENZAPRINE HCL 10 MG TABS 1/2 - 1 tab by mouth three times daily if needed for spasms/pain CYCLOBENZAPRINE HCL 28011830891 No Longer Active Yolande Lindsay MD PhD Active TRILEPTAL 600 MG TABS Take one 1/2 tablet in Am and 1 tablet at night OXCARBAZEPINE 99251335430 Active Yolande Lindsay MD PhD Active AZITHROMYCIN 250 MG TABS 2 pills on day 1, then 1 pill daily x 4 days AZITHROMYCIN 95615779238 No Longer Active Yolande Lindsay MD PhD Active XOPENEX 1.25 MG/3ML NEBU 1 neb every 4 hours if needed for cough/congestion LEVALBUTEROL HCL 11306058158 No Longer Active Yolande Lindsay MD PhD Active DOXYCYCLINE HYCLATE 100 MG TAB 1 tab twice a day for 14 days 2013 DOXYCYCLINE HYCLATE 21433404624 No Longer Active Yolande Lindsay MD PhD Active LEVOTHYROXINE SODIUM 75 MCG TABS Take 1 tab daily LEVOTHYROXINE SODIUM 87233931480 Active Yolande Lindsay MD PhD Active PREVACID 30 MG CPDR Take 1 tablet by mouth daily-PRN LANSOPRAZOLE 31705398067 No Longer Active Yolande Lindsay MD PhD Active PA VITAMIN D-3 2000 UNIT CAPS 1 CAP PO DAILY CHOLECALCIFEROL 53612370331 No Longer Active Yolande Lindsay MD PhD Active CEFDINIR 300 MG CAPS by mouth twice a day CEFDINIR 64165118040 No Longer Active Gab Padron MD Active TOPAMAX 50 MG TABS 1 PO twice daily TOPIRAMATE 28402616908 Active Yolande Lindsay MD PhD Active AZITHROMYCIN 250 MG TABS 2 po qd x 1 day, then 1 po qd x 4 days AZITHROMYCIN 53955062553 No Longer Active Yolande Lindsay MD PhD Active DICLOFENAC SODIUM 75 MG TBEC 1 tablet by q 12 hours PRN headaches DICLOFENAC SODIUM 24391203493 No Longer Active Yolande Lindsay MD PhD Active FLONASE 50 MCG/ACT SUSP 1 spray each nostril am and hs FLUTICASONE PROPIONATE 59868342027 No Longer Active Todd Callaway MD Active ANUSOL-HC 25 MG SUPPOSITORY 1 rectally twice a day as needed for hemorrhoids HYDROCORTISONE JAYDEN (RECTAL) 14018773149 No Longer Active Yolande Lindsay MD PhD Active ANUSOL-HC 25 MG SUPPOSITORY 1 suppository rectally each evening as needed for anal fissure HYDROCORTISONE JAYDEN (RECTAL) 91484508156 No Longer Active LONNIE Iglesias Active VALIUM 5 MG TAB 1 po 30 minutes prior to your MRI DIAZEPAM 29354343020 No Longer Active LONNIE Iglesias Active METHOCARBAMOL 750 MG TABS 1 PO QID PRN METHOCARBAMOL 90077530729 No Longer Active Daphne Wetzel APRN Active NITROSTAT 0.4 MG SUBL as directed NITROGLYCERIN 56042272048 No Longer Active Rodrigo Sarah APRN Active ROBAXIN-750 750 MG TABS 2 four times a day for 3 days as needed for muscle spasm, then 1 four times a day as needed METHOCARBAMOL 66703431351 No Longer Active Rodrigo Sarah APRN Active HYDROCODONE-ACETAMINOPHEN 5-325 MG TABS 1 q 4-6 hrs prn HYDROCODONE-ACETAMINOPHEN 42640199032 No Longer Active Rodrigo Sarah APRN Active VERAPAMIL HCL CR 180 MG CR-TABS TAKE 1 TAB DAILY VERAPAMIL HCL 27101276107 No Longer Active Yolande Lindsay MD PhD Active BACTRIM DS 800-160 MG TAB 1 tab by mouth twice daily TRIMETHOPRIM-SULFAMETHOXAZOLE 97170544605 No Longer Active Yolande Lindsay MD PhD Active NEXIUM 40 MG PACK 1 by mouth daily ESOMEPRAZOLE MAGNESIUM 47586365124 No Longer Active Des Hines MD Active EPIPEN 2-CHARLETTE 0.3 MG/0.3ML OMARI as need for allergic reaction EPINEPHRINE 95014342452 Active Yolande Lindsay MD PhD Active LISINOPRIL 10 MG TABS 1 PO Q D FOR BP LISINOPRIL 98449371641 Active Yolande Lindsay MD PhD Active NEXIUM 40 MG CPDR 1 PO Q D DAY ESOMEPRAZOLE MAGNESIUM 64020963707 No Longer Active Sadia Perry RN Active ALBUTEROL SULFATE 0.083 % NEBU SOLN one vial per nebulizer every 4-6 hours as needed ALBUTEROL SULFATE 0.083 % NEBU SOLN 799185 ALBUTEROL SULFATE Inactive ANUSOL-HC 25 MG SUPPOSITORY 1 suppository rectally each evening as needed for anal fissure ANUSOL-HC 25 MG SUPPOSITORY 0960504 HYDROCORTISONE JAYDEN (RECTAL) Inactive ANUSOL-HC 25 MG SUPPOSITORY 1 rectally twice a day as needed for hemorrhoids ANUSOL-HC 25 MG SUPPOSITORY 4184202 HYDROCORTISONE JAYDEN (RECTAL) Inactive BACTRIM DS 800-160 MG TAB 1 tab by mouth twice daily BACTRIM DS 800-160 MG TAB TRIMETHOPRIM-SULFAMETHOXAZOLE Inactive CEFTIN 500 MG TAB 1 twice a day CEFTIN 500 MG TAB 591562 CEFUROXIME AXETIL Inactive CYCLOBENZAPRINE HCL 10 MG TABS 1/2 - 1 tab by mouth three times daily if needed for spasms/pain CYCLOBENZAPRINE HCL 10 MG TABS 666015 CYCLOBENZAPRINE HCL Inactive DOXYCYCLINE HYCLATE 100 MG CAP 1 cap by mouth twice daily DOXYCYCLINE HYCLATE 100 MG CAP 938732 DOXYCYCLINE HYCLATE Inactive DOXYCYCLINE HYCLATE 100 MG TAB 1 tab twice a day for 14 days 2013 DOXYCYCLINE HYCLATE 100 MG TAB 667489 DOXYCYCLINE HYCLATE Inactive FUROSEMIDE 20 MG TABS 1 pill by mouth daily, for edema FUROSEMIDE 20 MG TABS 466719 FUROSEMIDE Inactive METHOCARBAMOL 750 MG TABS 1 PO QID PRN METHOCARBAMOL 750 MG TABS 165200 METHOCARBAMOL Inactive NITROSTAT 0.4 MG SUBL as directed NITROSTAT 0.4 MG SUBL NITROGLYCERIN Inactive ROBAXIN-750 750 MG TABS 2 four times a day for 3 days as needed for muscle spasm, then 1 four times a day as needed ROBAXIN-750 750 MG TABS 19780706 METHOCARBAMOL Inactive VALIUM 5 MG TAB 1 po 30 minutes prior to your MRI VALIUM 5 MG TAB 777732 DIAZEPAM Inactive VERAPAMIL HCL CR 180 MG CR-TABS TAKE 1 TAB DAILY VERAPAMIL HCL CR 180 MG CR-TABS VERAPAMIL HCL Inactive PREVACID 30 MG CPDR Take 1 tablet by mouth daily-PRN PREVACID 30 MG CPDR 367034 LANSOPRAZOLE Inactive DICLOFENAC SODIUM 75 MG TBEC 1 tablet by q 12 hours PRN headaches DICLOFENAC SODIUM 75 MG TBEC 847295 DICLOFENAC SODIUM Inactive AZITHROMYCIN 250 MG TABS 2 pills on day 1, then 1 pill daily x 4 days AZITHROMYCIN 250 MG TABS 3377133 AZITHROMYCIN Inactive AZITHROMYCIN 250 MG TABS 2 po qd x 1 day, then 1 po qd x 4 days AZITHROMYCIN 250 MG TABS 9542876 AZITHROMYCIN Inactive ADULT ASPIRIN EC LOW STRENGTH 81 MG TBEC Take 1 tablet by mouth daily 2014 ADULT ASPIRIN EC LOW STRENGTH 81 MG TBEC 651381 ASPIRIN Inactive CEFDINIR 300 MG CAPS by mouth twice a day CEFDINIR 300 MG CAPS 144313 CEFDINIR Inactive ZOFRAN ODT 4 MG TBDP 1 pill dissolved by mouth every 4 hours if needed for nausea ZOFRAN ODT 4 MG TBDP 015236 ONDANSETRON Inactive XOPENEX 1.25 MG/3ML NEBU 1 neb every 4 hours if needed for cough/congestion XOPENEX 1.25 MG/3ML NEBU 226994 LEVALBUTEROL HCL Inactive FLONASE 50 MCG/ACT SUSP 1 spray each nostril am and hs FLONASE 50 MCG/ACT SUSP 090834 FLUTICASONE PROPIONATE Inactive HYDROCODONE-ACETAMINOPHEN 5-325 MG TABS 1 q 4-6 hrs prn HYDROCODONE-ACETAMINOPHEN 5-325 MG TABS 855622 HYDROCODONE-ACETAMINOPHEN Inactive NEXIUM 40 MG PACK 1 [...] Fluvirin, Fluarix, Agriflu(>=18 yo)) Fluzone (>3 yrs.) [XCV087] Influenza, seasonal, injectable influenza immunization (Flu Vax) has been administered Influenza - Unspecified Formulation [CVX88] influenza virus vaccine, unspecified formulation Seasonal influenza vaccine, injectable, containing preservative, for > 3 years old (Afluria, FluLaval, Fluzone, Fluvirin, Fluarix, Agriflu(>=18 yo)) Fluzone (>3 yrs.) [VMR526] Influenza, seasonal, injectable pneumococcal immunization administered Pneumovax 23 [CVX33] pneumococcal polysaccharide vaccine, 23 valent dT (Diphtheria and Tetanus) booster given given Td(adult) unspecified formulation Boostrix (Tetanus toxoid, reduced diphtheria toxoid and acellular pertussis vaccine, adsorbed), booster Boostrix [CZC764] tetanus toxoid, reduced diphtheria toxoid, and acellular [...] Panel - Chemistry sodium, serum 145 mmol/L 317-487 3293/06/22 potassium, serum 3.9 mmol/L 3.5-5.2 chloride, serum 109 mmol/L 98-107 carbon dioxide, venous blood 23.4 mmol/L 21.0-32.0 blood glucose 92 mg/dL 65-110 calcium, serum 8.2 mg/dL 8.5-10.1 urea nitrogen, blood 24 mg/dL 7-18 creatinine, serum 1.30 mg/dL 0.60-1.30 Lab Report: [facility] Advanced Lipid and Inlammation Panel /33068 - Chemistry cholesterol, serum 198 mg/dL 778-542 6720/04/30 HDL cholesterol, serum 65 mg/dL > OR=46 triglyceride, serum, fasting 82 mg/dL LDL cholesterol, serum 117 mg/dL cholesterol/HDL ratio, serum 3.0 calc < OR=5.0 Lab Report: CBC W/DIFF, Basic Metabolic Panel - Chemistry sodium, serum 144 mmol/L 757-334 2964/01/21 potassium, serum 4.2 mmol/L 3.5-5.2 chloride, serum [...] Panel - Chemistry sodium, serum 144 mmol/L 759-256 4777/12/15 potassium, serum 5.4 mmol/L 3.5-5.2 chloride, serum [...] UA - Chemistry sodium, serum 143 mmol/L 815-872 6908/10/24 potassium, serum 3.9 mmol/L 3.5-5.2 chloride, serum [...] 51 mg/dL 30-200 cholesterol, serum 173 mg/dL 783-295 2892/04/28 HDL cholesterol, serum 63 mg/dL 32-96 LDL [...] 0-19 Encounters Code Encounter Date Provider Facility CPT-93687 Level 4 Est. Patient 21:29:26 CDT Yolande Lindsay MD PhD [facility] CPT-15504 Level 3 Est. Patient 07:37:45 CDT Yolande Lindsay MD PhD [facility] CPT-95907 Level 3 Est. Patient 17:03:46 CDT Yolande Lindsay MD PhD [facility] CPT-45720 Level 4 Est. Patient 20:02:13 [employer] Yolande Lindsay MD PhD [facility] CPT-00133 Level 3 Est. Patient 16:02:07 [employer] Alexis Ordaz MD [facility] CPT-50758 Level 3 Est. Patient 12:41:24 [employer] Yolande Lindsay MD PhD [facility] [place]-26382 Level 3 Est. Patient 15:41:20 [employer] Yolande Lindsay MD [facility]-17286 Level 3 Est. Patient 13:20:02 [employer] Yolande Lindsay MD [facility]-58755 Level 3 Est. Patient 15:00:38 CDT Jared Og MD [facility]-48581 Level 3 Est. Patient 10:22:32 CDT Yolande Lindsay MD [facility]-85909 Level 3 Est. Patient 17:12:58 CDT Yolande Lindsay MD [facility]-76737 Level 4 Est. Patient 13:30:58 CDT Yolande Lindsay MD [facility]-31256 Level 4 New Patient 09:02:42 CDT Jared Og MD [facility]-32581 Level 3 Est. Patient 08:19:07 CDT Yolande Lindsay MD [facility]-38434 Level 3 Est. Patient 12:00:13 [employer] Gab Padron MD [facility] [place]-33087 Level 3 Est. Patient 16:15:23 [employer] Yolande Lindsay MD [facility] CPT-37598 Level 2 Est. Patient 19:47:15 CDT Yolande Lindsay MD [facility]-19183 Level 3 Est. Patient 21:38:31 CDT Yolande Lindsay MD [facility]-53430 Level 3 Est. Patient 10:25:12 CDT Adiel PERAZA [facility]-25698 Level 4 Est. Patient 10:51:58 CDT Yolande Lindsay MD [facility]-44747 Level 3 Est. Patient 14:04:55 [employer] Rodrigo Sarah [facility] CPT-94490 Level 3 Est. Patient 10:46:35 [employer] Rodrigo Sarah [facility] CPT-49477 Level 3 Est. Patient 14:24:37 [employer] Yolande Lindsay MD [facility] CPT-86477 Level 3 Est. Patient 17:41:58 [employer] Yolande Lindsay MD [facility] CPT-32504 Level 2 Est. Patient 22:01:41 [employer] Rodrigo Sarah [facility] CPT-95288 Level 2 Est. Patient 22:01:11 [employer] Rodrigo Sarah [facility] CPT-69456 Level 3 Est. Patient 10:12:29 [employer] Rodrigo Sarah [facility] CPT-56913 Level 3 Est. Patient 11:05:44 CDT Alexis Ordaz MD [facility] CPT-28255 Level 3 Est. Patient 14:57:20 CDT Yolande Lindsay MD [facility] CPT-37531 Level 3 Est. Patient 14:40:57 CDT Yolande Lindsay MD [facility] CPT-59665 Level 3 Est. Patient 20:55:40 CDT Yolande Lindsay MD [facility] CPT-66061 Level 3 Est. Patient 12:42:38 [employer] Yolande Lindsay MD [facility] CPT-95284 Level 3 Est. Patient 11:54:49 [employer] Des Hines MD [facility] CPT-73127 Level 3 Est. Patient 17:06:38 CDT Dewayne PERAZA [facility] Procedures Code Procedure Name Date Entry Date Standard Description [id number] Event Monitor - MC Transmission 09:12:32 CDT 08/06 [id number] Event Monitor - MC review and interp 09:12:32 CDT [id number] Event Monitor - MC recording 09:12:32 CDT CPT-23177 EKG Trac and Interp 16:50:22 CDT CPT-J1030 Depo Medrol 40 mg (Methyl Prednisolone Acetate) 17:05: 54 CDT CPT-J1100 Decadron 4mg (Dexamethasone) 17:05:54 CDT CPT-21882 Abx/Therapy Injection 17:05:54 CDT CPT-J1100 Decadron 4mg (Dexamethasone) 16:55:28 CDT CPT-J1030 Depo Medrol 40 mg (Methyl Prednisolone Acetate) 16:55: 28 CDT CPT-54698 Ankle Complete - Min 3V 15:58:50 CDT CPT-13800 Knee 3V 15:58:50 CDT CPT-07720 Hip comp min 2V 15:58:50 CDT CPT-J2270 Morphine Sulfate 10 mg 14:25:44 [employer] CPT-J2550 Phenergan 12.5 mg (Promethazine) 14:25:44 [employer] CPT-92663 Abx/Therapy Injection 14:25:44 [employer] CPT-J2550 Phenergan 12.5 mg (Promethazine) 14:08:03 [employer] CPT-J2270 Morphine Sulfate 10 mg 14:08:03 [employer] CPT-90094 Bladder Scan 15:00:38 CDT CPT-TCMM Transitional Care Mgmt-Moderate 09:52:22 CDT CPT-J1030 Depo Medrol 40 mg (Methyl Prednisolone Acetate) 10:55: 18 CDT CPT-J1100 Decadron 4mg (Dexamethasone) 10:55:18 CDT CPT-48050 Abx/Therapy Injection 10:55:18 CDT CPT-J1030 Depo Medrol 40 mg (Methyl Prednisolone Acetate) 10:22: 32 CDT CPT-J1100 Decadron 4mg (Dexamethasone) 10:22:32 CDT CPT-69394 Postop F/U Visit 14:37:13 CDT CPT-23567 Ankle Complete - Min 3V 17:11:58 CDT CPT-66712 Foot comp min 3V 17:11:58 CDT CPT-52186 Bladder Scan 09:56:58 CDT CPT-56794 Postop F/U Visit 09:56:58 CDT CPT-55483 Cystoscopy 09:02:42 CDT CPT-94125 Bladder Scan 09:02:42 CDT CPT-35479 Abd single AP View 16:00:35 CDT CPT-73865 Administration single or combination vaccine inc oral 10 :15:43 CDT CPT-34016 Influenza split virus > age 3 10:15:43 CDT CPT-27624 Nail Avulsion 09:24:57 CDT CPT-OV Office Visit 11:15:41 CDT CPT-19555 Abx/Therapy Injection 10:51:30 CDT CPT-J3301 Kenalog 40 mg (Triamcinolone Acetonide) 10:25:12 CDT CPT-J1100 Decadron 4mg (Dexamethasone) 10:25:12 CDT CPT-09658 Anoscopy diagnostic 10:36:12 CDT CPT-OV Office Visit 15:34:31 CDT CPT-72694 Abx/Therapy Injection 08:21:15 [employer] CPT-J1885 Toradol 60 mg (Ketorolac) 10:46:35 [employer] CPT-OV Office Visit 19:51:16 [employer] CPT-19147 Spec Collection and Handling Fee 14:34:18 [employer] CPT-PV Prev. Care Visit 14:19:18 [employer] CPT-43055 Postop F/U Visit 14:47:51 [employer] CPT-97881 Postop F/U Visit 15:15:14 [employer] CPT-93670 Postop F/U Visit 14:41:43 CDT CPT-07407 Postop F/U Visit 15:47:46 CDT CPT-OV Office Visit 15:27:23 CDT CPT-OV Office Visit 17:20:34 CDT CPT-96083 Abx/Therapy Injection 15:05:57 CDT CPT-J1100 Decadron 8mg (Dexamethasone) 14:44:57 CDT CPT-J1040 Depo Medrol 80 mg (Methyl Prednisolone Acetate) 14:44: 57 CDT CPT-JTINJ Joint Injection 10:17:37 CDT CPT-92557 Administration 2+ single or combination vaccines inc oral 13:01:46 [employer] CPT-59122 Administration single or combination vaccine inc oral 13 :01:46 [employer] CPT-54021 Pneumovax 13:01:46 [employer] CPT-04201 Influenza split virus > age 3 13:01:46 [employer] CPT-13661 Administration single or combination vaccine inc oral 08 :56:49 CDT CPT-29599 Tdap 08:56:49 CDT
--- OUTSIDE RECORDS SUMMARY | 2017-03-21 21:34 | XMS REPORT | Clinical Summary ---
Author Author Admin, MARGRET Organization [facility] Address Unknown Phone Unavailable Allergies, Adverse Reactions, Alerts Allergy Name Reaction Description Start Date Severity Status Provider CHLORHEXIDINE GLUCONATE tongue and gums swollen Critical Active Hoa Otto RMA NORFLEX Rash Critical Active Rodrigo Sarah HEBREW PROFESSOR TRAZODONE HCL sees things Critical Active Dewayne [...] of 412 Active Hoa Otto [facility] Old myocardial infarction ANKLE PAIN, RIGHT ICD-719.47 Inactive Yolande Lindsay [...] Todd Callaway MD BACK PAIN ICD-724.5 Inactive oYlande Lidnsay MD PhD AFTERCARE FOLLOW SURGERY MUSCULOSKEL SYSTEM [...] PAIN ICD-729.1 Inactive Yolande Lindsay MD PhD FOOT PAIN, RIGHT ICD-729.5 Inactive Yolande Lindsay MD PhD HEADACHE ICD-784.0 [...] Sinusitis ICD-461.9 Inactive Yolande Lindsay MD PhD FISSURE, ANAL ICD-565.0 Inactive Yolande Lindsay MD PhD CHEST PAIN, UNSPECIFIED ICD-786.50 Inactive Yolande Lindsay MD PhD Pallor ICD-782.61 [...] tab by mouth daily CALCIUM CARBONATE-VIT D-MIN 15144223262 Active Yolande Lindsay MD PhD Active ONDANSETRON 4 MG TBDP 1 q4h PRN nausea ONDANSETRON 38851896204 Active Yolande Lindsay MD PhD Active ADULT ASPIRIN EC LOW STRENGTH 81 MG TBEC Take 1 tablet by mouth daily 2014 ASPIRIN 40503483789 No Longer Active Yolande Lindsay MD PhD Active ZOFRAN ODT 4 MG TBDP 1 pill dissolved by mouth every 4 hours if needed for nausea ONDANSETRON 30948142361 No Longer Active Yolande Lindsay MD PhD Active CEFTIN 500 MG TAB 1 twice a day CEFUROXIME AXETIL 30643487747 No Longer Active Yolande Lindsay MD PhD Active ALBUTEROL SULFATE 0.083 % NEBU SOLN one vial per nebulizer every 4-6 hours as needed ALBUTEROL SULFATE 08853128432 No Longer Active Alexis Ordaz MD Active DOXYCYCLINE HYCLATE 100 MG CAP 1 cap by mouth twice daily DOXYCYCLINE HYCLATE 69638340947 No Longer Active Yolande Lindsay MD PhD Active CYCLOBENZAPRINE HCL 10 MG TABS 1/2 - 1 tab by mouth three times daily if needed for spasms/pain CYCLOBENZAPRINE HCL 50843975108 No Longer Active Yolande Lindsay MD PhD Active TRILEPTAL 600 MG TABS Take one 1/2 tablet in Am and 1 tablet at night OXCARBAZEPINE 30066703706 Active Yolande Lindsay MD PhD Active AZITHROMYCIN 250 MG TABS 2 pills on day 1, then 1 pill daily x 4 days AZITHROMYCIN 59587403870 No Longer Active Yolande Lindsay MD PhD Active XOPENEX 1.25 MG/3ML NEBU 1 neb every 4 hours if needed for cough/congestion LEVALBUTEROL HCL 57769233879 No Longer Active Yolande Lindsay MD PhD Active DOXYCYCLINE HYCLATE 100 MG TAB 1 tab twice a day for 14 days 2013 DOXYCYCLINE HYCLATE 92740438062 No Longer Active Yolande Lindsay MD PhD Active LEVOTHYROXINE SODIUM 75 MCG TABS Take 1 tab daily LEVOTHYROXINE SODIUM 48085739410 Active Yolande Lindsay MD PhD Active PREVACID 30 MG CPDR Take 1 tablet by mouth daily-PRN LANSOPRAZOLE 73983302137 No Longer Active Yolande Lindsay MD PhD Active PA VITAMIN D-3 2000 UNIT CAPS 1 CAP PO DAILY CHOLECALCIFEROL 11615331366 No Longer Active Yolande Lindsay MD PhD Active CEFDINIR 300 MG CAPS by mouth twice a day CEFDINIR 68639613829 No Longer Active Gab Padron MD Active TOPAMAX 50 MG TABS 1 PO twice daily TOPIRAMATE 29566006692 Active Yolande Lindsay MD PhD Active AZITHROMYCIN 250 MG TABS 2 po qd x 1 day, then 1 po qd x 4 days AZITHROMYCIN 87711136895 No Longer Active Yolande Lindsay MD PhD Active DICLOFENAC SODIUM 75 MG TBEC 1 tablet by q 12 hours PRN headaches DICLOFENAC SODIUM 94580747013 No Longer Active Yolande Lindsay MD PhD Active FLONASE 50 MCG/ACT SUSP 1 spray each nostril am and hs FLUTICASONE PROPIONATE 27057950536 No Longer Active Todd aCllaway MD Active ANUSOL-HC 25 MG SUPPOSITORY 1 rectally twice a day as needed for hemorrhoids HYDROCORTISONE JAYDEN (RECTAL) 00082715398 No Longer Active Yolande Lindsay MD PhD Active ANUSOL-HC 25 MG SUPPOSITORY 1 suppository rectally each evening as needed for anal fissure HYDROCORTISONE JAYDEN (RECTAL) 07463215955 No Longer Active LONNIE Iglesias Active VALIUM 5 MG TAB 1 po 30 minutes prior to your MRI DIAZEPAM 65700357141 No Longer Active LONNIE Iglesias Active METHOCARBAMOL 750 MG TABS 1 PO QID PRN METHOCARBAMOL 15503740129 No Longer Active Daphne Wetzel APRN Active NITROSTAT 0.4 MG SUBL as directed NITROGLYCERIN 56285559603 No Longer Active Rodrigo Sarah APRN Active ROBAXIN-750 750 MG TABS 2 four times a day for 3 days as needed for muscle spasm, then 1 four times a day as needed METHOCARBAMOL 16867903525 No Longer Active Rodrigo Sarah APRN Active HYDROCODONE-ACETAMINOPHEN 5-325 MG TABS 1 q 4-6 hrs prn HYDROCODONE-ACETAMINOPHEN 43478750305 No Longer Active Rodrigo Sarah APRN Active VERAPAMIL HCL CR 180 MG CR-TABS TAKE 1 TAB DAILY VERAPAMIL HCL 68781355070 No Longer Active Yolande Lindsay MD PhD Active BACTRIM DS 800-160 MG TAB 1 tab by mouth twice daily TRIMETHOPRIM-SULFAMETHOXAZOLE 02575890141 No Longer Active Yolande Lindsay MD PhD Active NEXIUM 40 MG PACK 1 by mouth daily ESOMEPRAZOLE MAGNESIUM 75615363398 No Longer Active Des Hines MD Active EPIPEN 2-CHARLETTE 0.3 MG/0.3ML OMARI as need for allergic reaction EPINEPHRINE 77625690059 Active Yolande Lindsay MD PhD Active LISINOPRIL 10 MG TABS 1 PO Q D FOR BP LISINOPRIL 03001014351 Active Yolande Lindsay MD PhD Active NEXIUM 40 MG CPDR 1 PO Q D DAY ESOMEPRAZOLE MAGNESIUM 30772571224 No Longer Active Sadia Perry RN Active NEXIUM 40 MG PACK 1 by mouth daily NEXIUM 40 MG PACK ESOMEPRAZOLE MAGNESIUM Inactive VERAPAMIL HCL CR 180 MG CR-TABS TAKE 1 TAB DAILY VERAPAMIL HCL CR 180 MG CR-TABS VERAPAMIL HCL Inactive HYDROCODONE-ACETAMINOPHEN 5-325 MG TABS 1 q 4-6 hrs prn HYDROCODONE-ACETAMINOPHEN 5-325 MG TABS 431312 HYDROCODONE-ACETAMINOPHEN Inactive ROBAXIN-750 750 MG TABS 2 four times a day for 3 days as needed for muscle spasm, then 1 four times a day as needed ROBAXIN-750 750 MG TABS 491740 METHOCARBAMOL Inactive NITROSTAT 0.4 MG SUBL as directed NITROSTAT 0.4 MG SUBL NITROGLYCERIN Inactive METHOCARBAMOL 750 MG TABS 1 PO QID PRN METHOCARBAMOL 750 MG TABS 623545 METHOCARBAMOL Inactive VALIUM 5 MG TAB 1 po 30 minutes prior to your MRI VALIUM 5 MG TAB 978688 DIAZEPAM Inactive ANUSOL-HC 25 MG SUPPOSITORY 1 suppository rectally each evening as needed for anal fissure ANUSOL-HC 25 MG SUPPOSITORY 6602184 HYDROCORTISONE JAYDEN (RECTAL) Inactive ANUSOL-HC 25 MG SUPPOSITORY 1 rectally twice a day as needed for hemorrhoids ANUSOL-HC 25 MG SUPPOSITORY 9933361 HYDROCORTISONE JAYDEN (RECTAL) Inactive FLONASE 50 MCG/ACT SUSP 1 spray each nostril am and hs FLONASE 50 MCG/ACT SUSP 323129 FLUTICASONE PROPIONATE Inactive DICLOFENAC SODIUM 75 MG TBEC 1 tablet by q 12 hours PRN headaches DICLOFENAC SODIUM 75 MG TBEC 109836 DICLOFENAC SODIUM Inactive PA VITAMIN D-3 2000 UNIT CAPS 1 CAP PO DAILY PA VITAMIN D-3 2000 UNIT CAPS CHOLECALCIFEROL Inactive PREVACID 30 MG CPDR Take 1 tablet by mouth daily-PRN PREVACID 30 MG CPDR 776802 LANSOPRAZOLE Inactive DOXYCYCLINE HYCLATE 100 MG TAB 1 tab twice a day for 14 days 2013 DOXYCYCLINE HYCLATE 100 MG TAB 257066 DOXYCYCLINE HYCLATE Inactive XOPENEX 1.25 MG/3ML NEBU 1 neb every 4 hours if needed for cough/congestion XOPENEX 1.25 MG/3ML NEBU LEVALBUTEROL HCL Inactive CYCLOBENZAPRINE HCL 10 MG TABS 1/2 - 1 tab by mouth three times daily if needed for spasms/pain CYCLOBENZAPRINE HCL 10 MG TABS 175004 CYCLOBENZAPRINE HCL Inactive ALBUTEROL SULFATE 0.083 % NEBU SOLN one vial per nebulizer every 4-6 hours as needed ALBUTEROL SULFATE 0.083 % NEBU SOLN 980118 ALBUTEROL SULFATE Inactive CEFTIN 500 MG TAB 1 twice a day CEFTIN 500 MG TAB 175170 CEFUROXIME AXETIL Inactive ZOFRAN ODT 4 MG TBDP 1 pill dissolved by mouth every 4 hours if needed for nausea ZOFRAN ODT 4 MG TBDP 005501 ONDANSETRON Inactive ADULT ASPIRIN EC LOW STRENGTH 81 MG TBEC Take 1 tablet by mouth daily 2014 ADULT ASPIRIN EC LOW STRENGTH 81 MG TBEC 412812 ASPIRIN Inactive BACTRIM DS 800-160 MG TAB 1 tab by mouth twice daily BACTRIM DS 800-160 MG TAB TRIMETHOPRIM-SULFAMETHOXAZOLE Inactive AZITHROMYCIN 250 MG TABS 2 po qd x 1 day, then 1 po qd x 4 days AZITHROMYCIN 250 MG TABS 7875636 AZITHROMYCIN Inactive CEFDINIR 300 MG CAPS by mouth twice a day CEFDINIR 300 MG CAPS 700049 CEFDINIR Inactive AZITHROMYCIN 250 MG TABS 2 pills on day 1, then 1 pill daily x 4 days AZITHROMYCIN 250 MG TABS 5639897 AZITHROMYCIN Inactive DOXYCYCLINE HYCLATE 100 MG CAP 1 cap by mouth twice daily DOXYCYCLINE HYCLATE 100 MG CAP 19890510 DOXYCYCLINE HYCLATE Inactive Immunizations Vaccine Administration Date Value Standard Description Seasonal influenza vaccine, injectable, containing preservative, for > 3 years old (Afluria, FluLaval, Fluzone, Fluvirin, Fluarix, Agriflu(>=18 yo)) Fluzone (>3 yrs.) [RPH000] Influenza, seasonal, injectable influenza immunization (Flu Vax) has been administered Influenza - Unspecified Formulation [CVX88] influenza virus vaccine, unspecified formulation Seasonal influenza vaccine, injectable, containing preservative, for > 3 years old (Afluria, FluLaval, Fluzone, Fluvirin, Fluarix, Agriflu(>=18 yo)) Fluzone (>3 yrs.) [CAL723] Influenza, seasonal, injectable pneumococcal immunization administered Pneumovax 23 [CVX33] pneumococcal polysaccharide vaccine, 23 valent dT (Diphtheria and Tetanus) booster given given Td(adult) unspecified formulation Boostrix (Tetanus toxoid, reduced diphtheria toxoid and acellular pertussis vaccine, adsorbed), booster Boostrix [INE220] tetanus toxoid, reduced diphtheria toxoid, and acellular [...] Description Chart Maintenance: Outside labs entered on [facility] - Chemistry sodium, serum 143 mmol/L potassium, serum 4.2 mmol/L blood glucose 85 mg/dL creatinine, serum 1.38 mg/dL Chart Maintenance: Outside labs entered on [facility] - Hematology leukocyte count, blood 6.1 10*3/mm3 hemoglobin, blood 11.0 g/dL platelet count 175 10*3/mm3 Lab Report: [facility] Advanced Lipid and Inlammation Panel /10047 - Chemistry cholesterol, serum 198 mg/dL 803-559 5677/04/30 HDL cholesterol, serum 65 mg/dL > OR=46 triglyceride, serum, fasting 82 mg/dL LDL cholesterol, serum 117 mg/dL cholesterol/HDL ratio, serum 3.0 calc < OR=5.0 Lab Report: CBC W/DIFF, Basic Metabolic Panel - Chemistry sodium, serum 144 mmol/L 016-060 4862/01/21 potassium, serum 4.2 mmol/L 3.5-5.2 chloride, serum [...] Panel - Chemistry sodium, serum 144 mmol/L 146-031 3910/12/15 potassium, serum 5.4 mmol/L 3.5-5.2 chloride, serum [...] UA - Chemistry sodium, serum 143 mmol/L 247-020 6927/10/24 potassium, serum 3.9 mmol/L 3.5-5.2 chloride, serum [...] 51 mg/dL 30-200 cholesterol, serum 173 mg/dL 811-137 5119/04/28 HDL cholesterol, serum 63 mg/dL 32-96 LDL [...] 0-19 Encounters Code Encounter Date Provider Facility CPT-49655 Level 3 Est. Patient 07:37:45 CDT Yolande Lindsay MD PhD [facility] CPT-73771 Level 3 Est. Patient 17:03:46 CDT Yolande Lindsay MD [facility] CPT-89078 Level 4 Est. Patient 20:02:13 LOCOMOTIVE FIRER/FIREMAN Yolande Lindsay MD [facility] CPT-94161 Level 3 Est. Patient 16:02:07 LOCOMOTIVE FIRER/FIREMAN Alexis Ordaz MD [facility] CPT-21446 Level 3 Est. Patient 12:41:24 LOCOMOTIVE FIRER/FIREMAN Yolande Lindsay MD [facility] CPT-60132 Level 3 Est. Patient 15:41:20 LOCOMOTIVE FIRER/FIREMAN Yolande Lindsay MD [facility]-37501 Level 3 Est. Patient 13:20:02 LOCOMOTIVE FIRER/FIREMAN Yolande Lindsay MD [facility]-37238 Level 3 Est. Patient 15:00:38 CDT Jared Og MD [facility]-16938 Level 3 Est. Patient 10:22:32 CDT Yolande Lindsay MD [facility] CPT-25414 Level 3 Est. Patient 17:12:58 CDT Yolande Lindsay MD [facility] CPT-10099 Level 4 Est. Patient 13:30:58 CDT Yolande Lindsay MD [facility] CPT-54594 Level 4 New Patient 09:02:42 CDT Jared Og MD [facility]-46536 Level 3 Est. Patient 08:19:07 CDT Yolande Lindsay MD [facility] CPT-28241 Level 3 Est. Patient 12:00:13 LOCOMOTIVE FIRER/FIREMAN Gab Padron MD [facility]-43903 Level 3 Est. Patient 16:15:23 LOCOMOTIVE FIRER/FIREMAN Yolande Lindsay MD [facility] CPT-85331 Level 2 Est. Patient 19:47:15 CDT Yolande Lindsay MD [facility] CPT-01603 Level 3 Est. Patient 21:38:31 CDT Yolande Lindsay MD [facility] CPT-61053 Level 3 Est. Patient 10:25:12 CDT Adiel Harry [facility] CPT-72933 Level 4 Est. Patient 10:51:58 CDT Yolande Lindsay MD [facility]-21177 Level 3 Est. Patient 14:04:55 LOCOMOTIVE FIRER/FIREMAN Rodrigo Sarah [facility] CPT-12362 Level 3 Est. Patient 10:46:35 LOCOMOTIVE FIRER/FIREMAN Rodrigo Sarah [facility]-91492 Level 3 Est. Patient 14:24:37 LOCOMOTIVE FIRER/FIREMAN Yoalnde Lindsay MD [facility]-27770 Level 3 Est. Patient 17:41:58 LOCOMOTIVE FIRER/FIREMAN Yolande Lindsay MD [facility]-29727 Level 2 Est. Patient 22:01:41 LOCOMOTIVE FIRER/FIREMAN Rodrigo Sarah [facility] CPT-47518 Level 2 Est. Patient 22:01:11 LOCOMOTIVE FIRER/FIREMAN Rodrigo Sarah [facility] CPT-62868 Level 3 Est. Patient 10:12:29 LOCOMOTIVE FIRER/FIREMAN Rodrigo Sarah [facility] CPT-24571 Level 3 Est. Patient 11:05:44 CDT Alexis Ordaz MD [facility] CPT-08429 Level 3 Est. Patient 14:57:20 CDT Yolande Lindsay MD [facility]-03896 Level 3 Est. Patient 14:40:57 CDT Yolande Lindsay MD [facility]-14005 Level 3 Est. Patient 20:55:40 CDT Yolande Lindsay MD [facility]-40962 Level 3 Est. Patient 12:42:38 LOCOMOTIVE FIRER/FIREMAN Yolande Lindsay MD PhD [facility] CPT-10948 Level 3 Est. Patient 11:54:49 LOCOMOTIVE FIRER/FIREMAN Des Hines MD [facility] CPT-26748 Level 3 Est. Patient 17:06:38 CDT Dewayne PERAZA [facility] Procedures Code Procedure Name Date Entry Date Standard Description [id number] Event Monitor - MC Transmission 09:12:32 CDT 08/06 [id number] Event Monitor - MC review and interp 09:12:32 CDT [id number] Event Monitor - MC recording 09:12:32 CDT CPT-89734 EKG Trac and Interp 16:50:22 CDT CPT-J1030 Depo Medrol 40 mg (Methyl Prednisolone Acetate) 17:05: 54 CDT CPT-J1100 Decadron 4mg (Dexamethasone) 17:05:54 CDT CPT-00458 Abx/Therapy Injection 17:05:54 CDT CPT-J1100 Decadron 4mg (Dexamethasone) 16:55:28 CDT CPT-J1030 Depo Medrol 40 mg (Methyl Prednisolone Acetate) 16:55: 28 CDT CPT-02396 Ankle Complete - Min 3V 15:58:50 CDT CPT-72479 Knee 3V 15:58:50 CDT CPT-05495 Hip comp min 2V 15:58:50 CDT CPT-J2270 Morphine Sulfate 10 mg 14:25:44 LOCOMOTIVE FIRER/FIREMAN CPT-J2550 Phenergan 12.5 mg (Promethazine) 14:25:44 LOCOMOTIVE FIRER/FIREMAN CPT-35714 Abx/Therapy Injection 14:25:44 LOCOMOTIVE FIRER/FIREMAN CPT-J2550 Phenergan 12.5 mg (Promethazine) 14:08:03 LOCOMOTIVE FIRER/FIREMAN CPT-J2270 Morphine Sulfate 10 mg 14:08:03 LOCOMOTIVE FIRER/FIREMAN CPT-56124 Bladder Scan 15:00:38 CDT CPT-TCMM Transitional Care Mgmt-Moderate 09:52:22 CDT CPT-J1030 Depo Medrol 40 mg (Methyl Prednisolone Acetate) 10:55: 18 CDT CPT-J1100 Decadron 4mg (Dexamethasone) 10:55:18 CDT CPT-08112 Abx/Therapy Injection 10:55:18 CDT CPT-J1030 Depo Medrol 40 mg (Methyl Prednisolone Acetate) 10:22: 32 CDT CPT-J1100 Decadron 4mg (Dexamethasone) 10:22:32 CDT CPT-00287 Postop F/U Visit 14:37:13 CDT CPT-95708 Ankle Complete - Min 3V 17:11:58 CDT CPT-96707 Foot comp min 3V 17:11:58 CDT CPT-70727 Bladder Scan 09:56:58 CDT CPT-36800 Postop F/U Visit 09:56:58 CDT CPT-14135 Cystoscopy 09:02:42 CDT CPT-26319 Bladder Scan 09:02:42 CDT CPT-25934 Abd single AP View 16:00:35 CDT CPT-10953 Administration single or combination vaccine inc oral 10 :15:43 CDT CPT-36374 Influenza split virus > age 3 10:15:43 CDT CPT-33092 Nail Avulsion 09:24:57 CDT CPT-OV Office Visit 11:15:41 CDT CPT-16521 Abx/Therapy Injection 10:51:30 CDT CPT-J3301 Kenalog 40 mg (Triamcinolone Acetonide) 10:25:12 CDT CPT-J1100 Decadron 4mg (Dexamethasone) 10:25:12 CDT CPT-77415 Anoscopy diagnostic 10:36:12 CDT CPT-OV Office Visit 15:34:31 CDT CPT-86179 Abx/Therapy Injection 08:21:15 LOCOMOTIVE FIRER/FIREMAN CPT-J1885 Toradol 60 mg (Ketorolac) 10:46:35 LOCOMOTIVE FIRER/FIREMAN CPT-OV Office Visit 19:51:16 LOCOMOTIVE FIRER/FIREMAN CPT-40746 Spec Collection and Handling Fee 14:34:18 LOCOMOTIVE FIRER/FIREMAN CPT-PV Prev. Care Visit 14:19:18 LOCOMOTIVE FIRER/FIREMAN CPT-81463 Postop F/U Visit 14:47:51 LOCOMOTIVE FIRER/FIREMAN CPT-54244 Postop F/U Visit 15:15:14 LOCOMOTIVE FIRER/FIREMAN CPT-39258 Postop F/U Visit 14:41:43 CDT CPT-46609 Postop F/U Visit 15:47:46 CDT CPT-OV Office Visit 15:27:23 CDT CPT-OV Office Visit 17:20:34 CDT CPT-92272 Abx/Therapy Injection 15:05:57 CDT CPT-J1100 Decadron 8mg (Dexamethasone) 14:44:57 CDT CPT-J1040 Depo Medrol 80 mg (Methyl Prednisolone Acetate) 14:44: 57 CDT CPT-JTINJ Joint Injection 10:17:37 CDT CPT-33577 Administration 2+ single or combination vaccines inc oral 13:01:46 LOCOMOTIVE FIRER/FIREMAN CPT-36641 Administration single or combination vaccine inc oral 13 :01:46 LOCOMOTIVE FIRER/FIREMAN CPT-12745 Pneumovax 13:01:46 LOCOMOTIVE FIRER/FIREMAN CPT-78756 Influenza split virus > age 3 13:01:46 LOCOMOTIVE FIRER/FIREMAN CPT-35374 Administration single or combination vaccine inc oral 08 :56:49 CDT CPT-05168 Tdap 08:56:49 CDT
--- OUTSIDE RECORDS SUMMARY | 2017-03-21 21:36 | XMS REPORT | Clinical Summary ---
Author Author Admin, MARGRET Organization [facility] Address Unknown Phone Unavailable Allergies, Adverse Reactions, Alerts Allergy Name Reaction Description Start Date Severity Status Provider CHLORHEXIDINE GLUCONATE tongue and gums swollen Critical Active Hoa Otto RMA NORFLEX Rash Critical Active Rodrigo Sarah SOFTWARE CLIENT ARCHITECT TRAZODONE HCL sees things Critical Active [...] complication POISON KUNAL DERMATITIS 692.6 Resolved Yolande iLndsay MD PhD Contact dermatitis and other eczema due to plants [except food] ANGIOEDEMA 995.1 Resolved Yolande Lindsay MD PhD Angioneurotic edema, not elsewhere classified GERD 530.81 Resolved Yolande Lindsay MD PhD Esophageal reflux RECTAL BLEEDING 569.3 Resolved Yolande Lindsay MD PhD Hemorrhage of rectum and anus INGROWN TOENAIL 703.0 Resolved Yolande Lindsay MD PhD Ingrowing nail INGROWN TOENAIL 703.0 Resolved Yolaned Lindsay MD PhD Ingrowing nail Hip pain, [...] of bladder STRESS INCONTINENCE 788.39 Active Jared gO MD Other urinary incontinence Rectocele 618.04 Active [...] MD PhD CHEST PAIN, UNSPECIFIED ICD-786.50 Inactive oYlande Lindsay MD PhD HEADACHE ICD-784.0 Inactive Yolande [...] Yolande Lindsay MD PhD Pallor ICD-782.61 Inactive Yolaned Lindsay MD PhD 2013 Flank pain, left [...] tab by mouth daily CALCIUM CARBONATE-VIT D-MIN 84649885607 Active Yolande Lindsay MD PhD Active ONDANSETRON 4 MG TBDP 1 q4h PRN nausea ONDANSETRON 83362596426 Active Yolande Lindsay MD PhD Active ADULT ASPIRIN EC LOW STRENGTH 81 MG TBEC Take 1 tablet by mouth daily 2014 ASPIRIN 90473409316 No Longer Active Yolande Lindsay MD PhD Active ZOFRAN ODT 4 MG TBDP 1 pill dissolved by mouth every 4 hours if needed for nausea ONDANSETRON 23325715366 No Longer Active Yolande Lindsay MD PhD Active CEFTIN 500 MG TAB 1 twice a day CEFUROXIME AXETIL 64611121345 No Longer Active Yolande Lindsay MD PhD Active ALBUTEROL SULFATE 0.083 % NEBU SOLN one vial per nebulizer every 4-6 hours as needed ALBUTEROL SULFATE 72965163494 No Longer Active Alexis Ordaz MD Active DOXYCYCLINE HYCLATE 100 MG CAP 1 cap by mouth twice daily DOXYCYCLINE HYCLATE 03128847945 No Longer Active Yolande Lindsay MD PhD Active CYCLOBENZAPRINE HCL 10 MG TABS 1/2 - 1 tab by mouth three times daily if needed for spasms/pain CYCLOBENZAPRINE HCL 50239750224 No Longer Active Yolande Lindsay MD PhD Active TRILEPTAL 600 MG TABS Take one 1/2 tablet in Am and 1 tablet at night OXCARBAZEPINE 30809515057 Active Yolande Lindsay MD PhD Active AZITHROMYCIN 250 MG TABS 2 pills on day 1, then 1 pill daily x 4 days AZITHROMYCIN 78769057137 No Longer Active Yolande Lindsay MD PhD Active XOPENEX 1.25 MG/3ML NEBU 1 neb every 4 hours if needed for cough/congestion LEVALBUTEROL HCL 69803926255 No Longer Active Yolande Lindsay MD PhD Active DOXYCYCLINE HYCLATE 100 MG TAB 1 tab twice a day for 14 days 2013 DOXYCYCLINE HYCLATE 66544823542 No Longer Active Yolande Lindsay MD PhD Active LEVOTHYROXINE SODIUM 75 MCG TABS Take 1 tab daily LEVOTHYROXINE SODIUM 34654173541 Active Yolande Lindsay MD PhD Active PREVACID 30 MG CPDR Take 1 tablet by mouth daily-PRN LANSOPRAZOLE 03119984235 No Longer Active Yolande Lindsay MD PhD Active PA VITAMIN D-3 2000 UNIT CAPS 1 CAP PO DAILY CHOLECALCIFEROL 92565870637 No Longer Active Yolande Lindsay MD PhD Active CEFDINIR 300 MG CAPS by mouth twice a day CEFDINIR 55263048989 No Longer Active Gab Padron MD Active TOPAMAX 50 MG TABS 1 PO twice daily TOPIRAMATE 10650290134 Active Yolande Lindsay MD PhD Active AZITHROMYCIN 250 MG TABS 2 po qd x 1 day, then 1 po qd x 4 days AZITHROMYCIN 78259704307 No Longer Active Yolande Lindsay MD PhD Active DICLOFENAC SODIUM 75 MG TBEC 1 tablet by q 12 hours PRN headaches DICLOFENAC SODIUM 62729820622 No Longer Active Yolande Lindsay MD PhD Active FLONASE 50 MCG/ACT SUSP 1 spray each nostril am and hs FLUTICASONE PROPIONATE 02682721205 No Longer Active Todd Callaway MD Active ANUSOL-HC 25 MG SUPPOSITORY 1 rectally twice a day as needed for hemorrhoids HYDROCORTISONE JAYDEN (RECTAL) 29015159237 No Longer Active Yolande Lindsay MD PhD Active ANUSOL-HC 25 MG SUPPOSITORY 1 suppository rectally each evening as needed for anal fissure HYDROCORTISONE JAYDEN (RECTAL) 75213237521 No Longer Active LONNIE Iglesias Active VALIUM 5 MG TAB 1 po 30 minutes prior to your MRI DIAZEPAM 35173540188 No Longer Active LONNIE Iglesias Active METHOCARBAMOL 750 MG TABS 1 PO QID PRN METHOCARBAMOL 24558291689 No Longer Active Daphne Wetzel APRN Active NITROSTAT 0.4 MG SUBL as directed NITROGLYCERIN 86122950500 No Longer Active Rodrigo Sarah APRN Active ROBAXIN-750 750 MG TABS 2 four times a day for 3 days as needed for muscle spasm, then 1 four times a day as needed METHOCARBAMOL 09016609559 No Longer Active Rodrigo Sarah APRN Active HYDROCODONE-ACETAMINOPHEN 5-325 MG TABS 1 q 4-6 hrs prn HYDROCODONE-ACETAMINOPHEN 39834313471 No Longer Active Rodrigo Sarah APRN Active VERAPAMIL HCL CR 180 MG CR-TABS TAKE 1 TAB DAILY VERAPAMIL HCL 24697771602 No Longer Active Yolande Lindsay MD PhD Active BACTRIM DS 800-160 MG TAB 1 tab by mouth twice daily TRIMETHOPRIM-SULFAMETHOXAZOLE 57926316560 No Longer Active Yolande Lindsay MD PhD Active NEXIUM 40 MG PACK 1 by mouth daily ESOMEPRAZOLE MAGNESIUM 88087483560 No Longer Active Des Hines MD Active EPIPEN 2-CHARLETTE 0.3 MG/0.3ML OMARI as need for allergic reaction EPINEPHRINE 54135643248 Active Yolande Lindsay MD PhD Active LISINOPRIL 10 MG TABS 1 PO Q D FOR BP LISINOPRIL 36642615614 Active Yolande Lindsay MD PhD Active NEXIUM 40 MG CPDR 1 PO Q D DAY ESOMEPRAZOLE MAGNESIUM 52454297610 No Longer Active Sadia Orlando MIGUEL Active NEXIUM 40 MG PACK 1 by mouth daily NEXIUM 40 MG PACK ESOMEPRAZOLE MAGNESIUM Inactive VERAPAMIL HCL CR 180 MG CR-TABS TAKE 1 TAB DAILY VERAPAMIL HCL CR 180 MG CR-TABS VERAPAMIL HCL Inactive HYDROCODONE-ACETAMINOPHEN 5-325 MG TABS 1 q 4-6 hrs prn HYDROCODONE-ACETAMINOPHEN 5-325 MG TABS 742555 HYDROCODONE-ACETAMINOPHEN Inactive ROBAXIN-750 750 MG TABS 2 four times a day for 3 days as needed for muscle spasm, then 1 four times a day as needed ROBAXIN-750 750 MG TABS 527560 METHOCARBAMOL Inactive NITROSTAT 0.4 MG SUBL as directed NITROSTAT 0.4 MG SUBL NITROGLYCERIN Inactive METHOCARBAMOL 750 MG TABS 1 PO QID PRN METHOCARBAMOL 750 MG TABS 806589 METHOCARBAMOL Inactive VALIUM 5 MG TAB 1 po 30 minutes prior to your MRI VALIUM 5 MG TAB 381689 DIAZEPAM Inactive ANUSOL-HC 25 MG SUPPOSITORY 1 suppository rectally each evening as needed for anal fissure ANUSOL-HC 25 MG SUPPOSITORY 2981211 HYDROCORTISONE JAYDEN (RECTAL) Inactive ANUSOL-HC 25 MG SUPPOSITORY 1 rectally twice a day as needed for hemorrhoids ANUSOL-HC 25 MG SUPPOSITORY 1091628 HYDROCORTISONE JAYDEN (RECTAL) Inactive FLONASE 50 MCG/ACT SUSP 1 spray each nostril am and hs FLONASE 50 MCG/ACT SUSP 162130 FLUTICASONE PROPIONATE Inactive DICLOFENAC SODIUM 75 MG TBEC 1 tablet by q 12 hours PRN headaches DICLOFENAC SODIUM 75 MG TBEC 271460 DICLOFENAC SODIUM Inactive PA VITAMIN D-3 2000 UNIT CAPS 1 CAP PO DAILY PA VITAMIN D-3 2000 UNIT CAPS CHOLECALCIFEROL Inactive PREVACID 30 MG CPDR Take 1 tablet by mouth daily-PRN PREVACID 30 MG CPDR 408287 LANSOPRAZOLE Inactive DOXYCYCLINE HYCLATE 100 MG TAB 1 tab twice a day for 14 days 2013 DOXYCYCLINE HYCLATE 100 MG TAB 016607 DOXYCYCLINE HYCLATE Inactive XOPENEX 1.25 MG/3ML NEBU 1 neb every 4 hours if needed for cough/congestion XOPENEX 1.25 MG/3ML NEBU LEVALBUTEROL HCL Inactive CYCLOBENZAPRINE HCL 10 MG TABS 1/2 - 1 tab by mouth three times daily if needed for spasms/pain CYCLOBENZAPRINE HCL 10 MG TABS 190808 CYCLOBENZAPRINE HCL Inactive ALBUTEROL SULFATE 0.083 % NEBU SOLN one vial per nebulizer every 4-6 hours as needed ALBUTEROL SULFATE 0.083 % NEBU SOLN 647946 ALBUTEROL SULFATE Inactive CEFTIN 500 MG TAB 1 twice a day CEFTIN 500 MG TAB 401523 CEFUROXIME AXETIL Inactive ZOFRAN ODT 4 MG TBDP 1 pill dissolved by mouth every 4 hours if needed for nausea ZOFRAN ODT 4 MG TBDP 215207 ONDANSETRON Inactive ADULT ASPIRIN EC LOW STRENGTH 81 MG TBEC Take 1 tablet by mouth daily 2014 ADULT ASPIRIN EC LOW STRENGTH 81 MG TBEC 933051 ASPIRIN Inactive BACTRIM DS 800-160 MG TAB 1 tab by mouth twice daily BACTRIM DS 800-160 MG TAB TRIMETHOPRIM-SULFAMETHOXAZOLE Inactive AZITHROMYCIN 250 MG TABS 2 po qd x 1 day, then 1 po qd x 4 days AZITHROMYCIN 250 MG TABS 6081845 AZITHROMYCIN Inactive CEFDINIR 300 MG CAPS by mouth twice a day CEFDINIR 300 MG CAPS 20020708 CEFDINIR Inactive AZITHROMYCIN 250 MG TABS 2 pills on day 1, then 1 pill daily x 4 days AZITHROMYCIN 250 MG TABS 6621246 AZITHROMYCIN Inactive DOXYCYCLINE HYCLATE 100 MG CAP 1 cap by mouth twice daily DOXYCYCLINE HYCLATE 100 MG CAP 19890510 DOXYCYCLINE HYCLATE Inactive Immunizations Vaccine Administration Date Value Standard Description Seasonal influenza vaccine, injectable, containing preservative, for > 3 years old (Afluria, FluLaval, Fluzone, Fluvirin, Fluarix, Agriflu(>=18 yo)) Fluzone (>3 yrs.) [[id number]] Influenza, seasonal, injectable influenza immunization (Flu Vax) has been administered Influenza - Unspecified Formulation [CVX88] influenza virus vaccine, unspecified formulation pneumococcal immunization administered Pneumovax 23 [CVX33] pneumococcal polysaccharide vaccine, 23 valent Seasonal influenza vaccine, injectable, containing preservative, for > 3 years old (Afluria, FluLaval, Fluzone, Fluvirin, Fluarix, Agriflu(>=18 yo)) Fluzone (>3 yrs.) [CGU234] Influenza, seasonal, injectable dT (Diphtheria and Tetanus) booster given given Td(adult) unspecified formulation Boostrix (Tetanus toxoid, reduced diphtheria toxoid and acellular pertussis vaccine, adsorbed), booster Boostrix [BEL764] tetanus toxoid, reduced diphtheria toxoid, and acellular [...] Panel - Chemistry sodium, serum 144 mmol/L 504-884 8729/01/21 potassium, serum 4.2 mmol/L 3.5-5.2 chloride, serum 109 mmol/L 98-107 carbon dioxide, venous blood 23.7 mmol/L 21.0-32.0 blood glucose 75 mg/dL 65-110 calcium, serum 8.4 mg/dL 8.5-10.1 urea nitrogen, blood 22 mg/dL 7-18 creatinine, serum 1.30 mg/dL 0.60-1.30 Lab Report: CBC W/DIFF, Basic Metabolic Panel - Hematology neutrophils as percent of blood leukocytes 52.0 % 42.2-75.2 monocytes as percent of blood leukocytes 8.3 % 1.7-9.3 lymphocytes as percent of blood leukocytes 38.7 % 20.5-51.1 erythrocyte (RBC) count 4.10 10^6/MM^3 10*6/mm3 4.04-5.48 hemoglobin, blood 12.1 g/dL 12.0-16.0 leukocyte count, blood 4.1 10^3/MM^3 10*3/mm3 4.6-10.2 hematocrit, blood 37.3 % 36.0-46.0 mean corpuscular volume, RBC 91 fL 80-97 mean corpuscular hemoglobin, RBC 29.6 pg 27.0-31.2 mean corpuscular hemoglobin concentration, RBC 32.6 G/DL % 31.8- 35.4 red blood cell distribution width 15.6 % 11.6-14.8 platelet count 189 10^3/MM^3 10*3/mm3 142-424 Lab Report: CBC W/DIFF, Comp. Metabolic Panel - Chemistry sodium, serum 144 mmol/L 793-908 6731/12/15 potassium, serum 5.4 mmol/L 3.5-5.2 chloride, [...] CBC W/DIFF, Comp. Metabolic Panel - Hematology neutrophils as percent of blood leukocytes 55.5 % 42.2-75.2 monocytes as percent of blood leukocytes 8.4 % 1.7-9.3 lymphocytes as percent of blood leukocytes 34.9 % 20.5-51.1 erythrocyte (RBC) count 4.34 10^6/MM^3 10*6/mm3 4.04-5.48 hemoglobin, blood 13.2 g/dL 12.0-16.0 leukocyte count, blood 4.1 10^3/MM^3 10*3/mm3 4.6-10.2 hematocrit, blood 39.6 % 36.0-46.0 mean corpuscular volume, RBC 91 fL 80-97 mean corpuscular hemoglobin, RBC 30.3 pg 27.0-31.2 mean corpuscular hemoglobin concentration, RBC 33.3 G/DL % 31.8- 35.4 red blood cell distribution width 15.9 % 11.6-14.8 platelet count 186 10^3/MM^3 10*3/mm3 142-424 Lab Report: CBC, Comp. Metabolic Panel, FreeT4, TSH, UA - Chemistry sodium, serum 143 mmol/L [phone]/10/24 potassium, serum 3.9 mmol/L 3.5-5.2 chloride, serum [...] Metabolic Panel, FreeT4, TSH, UA - Hematology mean corpuscular volume, RBC 92 fL 80-97 hematocrit, blood 34.9 % 36.0-46.0 hemoglobin, blood 11.6 g/dL 12.0-16.0 erythrocyte (RBC) count 3.81 10^6/MM^3 10*6/mm3 4.04-5.48 leukocyte count, blood 5.3 10^3/MM^3 10*3/mm3 4.6-10.2 mean corpuscular hemoglobin, RBC 30.4 pg 27.0-31.2 mean corpuscular hemoglobin concentration, RBC 33.2 G/DL % 31.8- 35.4 red blood cell distribution width 15.6 % 11.6-14.8 platelet count 186 10^3/MM^3 10*3/mm3 142-424 Lab Report: CBC, Comp. Metabolic Panel, FreeT4, TSH, UA - Urinalysis glucose, urine, semiquantitative Negative Negative [...] 51 mg/dL 30-200 cholesterol, serum 173 mg/dL 814-036 3430/04/28 HDL cholesterol, serum 63 mg/dL 32-96 LDL [...] 0-19 Encounters Code Encounter Date Provider Facility CPT-46027 Level 3 Est. Patient 07:37:45 CDT Yolande Lindsay MD PhD [facility] CPT-73437 Level 3 Est. Patient 17:03:46 CDT Yolande Lindsay MD PhD [facility] CPT-43508 Level 4 Est. Patient 20:02:13 [employer] Yolande Lindsay MD PhD [facility] CPT-89508 Level 3 Est. Patient 16:02:07 [employer] Alexis Ordaz MD [facility] CPT-06343 Level 3 Est. Patient 12:41:24 [employer] Yolande Lindsay MD PhD [facility]-04014 Level 3 Est. Patient 15:41:20 [employer] Yolande Lindsay MD [facility]-95704 Level 3 Est. Patient 13:20:02 [employer] Yolande Lindsay MD [facility]-12471 Level 3 Est. Patient 15:00:38 CDT Jared Og MD [facility]-76354 Level 3 Est. Patient 10:22:32 CDT Yolande Lindsay MD [facility]-92120 Level 3 Est. Patient 17:12:58 CDT Yolande Lindsay MD [facility]-81176 Level 4 Est. Patient 13:30:58 CDT Yolande Lindsay MD [facility]-35905 Level 4 New Patient 09:02:42 CDT Jared Og MD [facility]-40633 Level 3 Est. Patient 08:19:07 CDT Yolande Lindsay MD [facility]-19759 Level 3 Est. Patient 12:00:13 [employer] Gab Padron MD [facility]-98187 Level 3 Est. Patient 16:15:23 [employer] Yolande Lindsay MD [facility] CPT-14843 Level 2 Est. Patient 19:47:15 CDT Yolande Lindsay MD [facility]-94110 Level 3 Est. Patient 21:38:31 CDT Yolande Lindsay MD [facility]-18877 Level 3 Est. Patient 10:25:12 CDT Adiel PERAZA [facility]-28068 Level 4 Est. Patient 10:51:58 CDT Yolande Lindsay MD [facility]-23638 Level 3 Est. Patient 14:04:55 [employer] Rodrigo Sarah [facility] CPT-34014 Level 3 Est. Patient 10:46:35 [employer] Rodrigo Sarah [facility] CPT-71076 Level 3 Est. Patient 14:24:37 [employer] Yolande Lindsay MD [facility]-16052 Level 3 Est. Patient 17:41:58 [employer] Yolande Lindsay MD [facility] CPT-72296 Level 2 Est. Patient 22:01:41 [employer] oRdrigo Sarah [facility] CPT-54964 Level 2 Est. Patient 22:01:11 [employer] Rodrigo Sarah [facility] CPT-80586 Level 3 Est. Patient 10:12:29 [employer] Rodrigo Sarah [facility] CPT-75844 Level 3 Est. Patient 11:05:44 CDT Alexis Ordaz MD [facility] CPT-67639 Level 3 Est. Patient 14:57:20 CDT Yolande Lindsay MD [facility] CPT-86258 Level 3 Est. Patient 14:40:57 CDT Yolande Lindsay MD [facility] CPT-79496 Level 3 Est. Patient 20:55:40 CDT Yolande Lindsay MD [facility] CPT-12440 Level 3 Est. Patient 12:42:38 [employer] Yolande Lindsay MD [facility]-35376 Level 3 Est. Patient 11:54:49 [employer] Des Hines MD [facility] CPT-83280 Level 3 Est. Patient 17:06:38 CDT Dewayne PERAZA [facility] Procedures Code Procedure Name Date Entry Date Standard Description CPT-74520 EKG Trac and Interp 16:50:22 CDT CPT-J1030 Depo Medrol 40 mg (Methyl Prednisolone Acetate) 17:05: 54 CDT CPT-J1100 Decadron 4mg (Dexamethasone) 17:05:54 CDT CPT-26996 Abx/Therapy Injection 17:05:54 CDT CPT-J1100 Decadron 4mg (Dexamethasone) 16:55:28 CDT CPT-J1030 Depo Medrol 40 mg (Methyl Prednisolone Acetate) 16:55: 28 CDT CPT-36559 Ankle Complete - Min 3V 15:58:50 CDT CPT-51663 Knee 3V 15:58:50 CDT CPT-01244 Hip comp min 2V 15:58:50 CDT CPT-J2270 Morphine Sulfate 10 mg 14:25:44 [employer] CPT-J2550 Phenergan 12.5 mg (Promethazine) 14:25:44 [employer] CPT-60314 Abx/Therapy Injection 14:25:44 [employer] CPT-J2550 Phenergan 12.5 mg (Promethazine) 14:08:03 [employer] CPT-J2270 Morphine Sulfate 10 mg 14:08:03 [employer] CPT-43926 Bladder Scan 15:00:38 CDT CPT-TCMM Transitional Care Mgmt-Moderate 09:52:22 CDT CPT-J1030 Depo Medrol 40 mg (Methyl Prednisolone Acetate) 10:55: 18 CDT CPT-J1100 Decadron 4mg (Dexamethasone) 10:55:18 CDT CPT-22149 Abx/Therapy Injection 10:55:18 CDT CPT-J1030 Depo Medrol 40 mg (Methyl Prednisolone Acetate) 10:22: 32 CDT CPT-J1100 Decadron 4mg (Dexamethasone) 10:22:32 CDT CPT-52551 Postop F/U Visit 14:37:13 CDT CPT-08051 Ankle Complete - Min 3V 17:11:58 CDT CPT-38645 Foot comp min 3V 17:11:58 CDT CPT-29435 Bladder Scan 09:56:58 CDT CPT-38824 Postop F/U Visit 09:56:58 CDT CPT-25294 Cystoscopy 09:02:42 CDT CPT-18171 Bladder Scan 09:02:42 CDT CPT-63070 Abd single AP View 16:00:35 CDT CPT-01068 Administration single or combination vaccine inc oral 10 :15:43 CDT CPT-53218 Influenza split virus > age 3 10:15:43 CDT CPT-39091 Nail Avulsion 09:24:57 CDT CPT-OV Office Visit 11:15:41 CDT CPT-73469 Abx/Therapy Injection 10:51:30 CDT CPT-J3301 Kenalog 40 mg (Triamcinolone Acetonide) 10:25:12 CDT CPT-J1100 Decadron 4mg (Dexamethasone) 10:25:12 CDT CPT-78025 Anoscopy diagnostic 10:36:12 CDT CPT-OV Office Visit 15:34:31 CDT CPT-20213 Abx/Therapy Injection 08:21:15 [employer] CPT-J1885 Toradol 60 mg (Ketorolac) 10:46:35 [employer] CPT-OV Office Visit 19:51:16 [employer] CPT-95317 Spec Collection and Handling Fee 14:34:18 [employer] CPT-PV Prev. Care Visit 14:19:18 [employer] CPT-91720 Postop F/U Visit 14:47:51 [employer] CPT-24978 Postop F/U Visit 15:15:14 [employer] CPT-33484 Postop F/U Visit 14:41:43 CDT CPT-55637 Postop F/U Visit 15:47:46 CDT CPT-OV Office Visit 15:27:23 CDT CPT-OV Office Visit 17:20:34 CDT CPT-07310 Abx/Therapy Injection 15:05:57 CDT CPT-J1100 Decadron 8mg (Dexamethasone) 14:44:57 CDT CPT-J1040 Depo Medrol 80 mg (Methyl Prednisolone Acetate) 14:44: 57 CDT CPT-JTINJ Joint Injection 10:17:37 CDT CPT-19812 Administration 2+ single or combination vaccines inc oral 13:01:46 [employer] CPT-19669 Administration single or combination vaccine inc oral 13 :01:46 [employer] CPT-38375 Pneumovax 13:01:46 [employer] CPT-58554 Influenza split virus > age 3 13:01:46 [employer] CPT-15386 Administration single or combination vaccine inc oral 08 :56:49 CDT CPT-20683 Tdap 08:56:49 CDT
--- OUTSIDE RECORDS SUMMARY | 2017-03-21 21:37 | XMS REPORT | Clinical Summary ---
Author Author Admin, MARGRET Organization [employer] Address Unknown Phone Unavailable Allergies, Adverse Reactions, Alerts Allergy Name Reaction Description Start Date Severity Status Provider AVLENTIN Critical Active Rodrigo Montemayorl JUNIOR BUSINESS ANALYST CHLORHEXIDINE GLUCONATE tongue and gums swollen Critical Active Hoa Kabaford RMA NORFLEX Rash Critical Active Rowenaina Farshadzell JUNIOR BUSINESS ANALYST TRAZODONE HCL sees things Critical Active [...] Urinary frequency ALLERGIC RHINITIS 477.9 Active Rodrigo aSrah APRN Allergic rhinitis, cause unspecified AFTERCARE FLW [...] Routine gynecological examination HYPOTHYROIDISM 244.9 Active Rodrigo aSrah APRN Unspecified hypothyroidism MUSCLE PAIN 729.1 Resolved [...] infarction, hx of 412 Active Hoa Otto [facility] Old myocardial infarction Pelvic pain 789.09 Active Yolande Lindsay MD PhD Abdominal pain, other specified site; multiple sites Edema 782.3 Active Yolande Lindsay MD PhD Edema Rash 782.1 Active Yolande Lindsay MD PhD Rash and other nonspecific skin eruption Back pain, lumbar 724.2 Active Gab Padron MD Lumbago Cough 786.2 Active Jillina Tyrel JUNIOR BUSINESS ANALYST Cough 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 Jillina Frazellilian ZAPATAN 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 Anemia 285.9 Active Gab Padron MD Anemia, unspecified Conjunctivitis 372.30 Active Jillnacho Sarah APRN Conjunctivitis, unspecified Sinusitis 473.9 Active Jillina Frazell JUNIOR BUSINESS ANALYST Unspecified sinusitis (chronic) Nonspecific syndrome suggestive of viral illness 079.99 Active Jillina Siml JUNIOR BUSINESS ANALYST Unspecified viral infection Laryngitis 464.00 Active Jillina Siml JUNIOR BUSINESS ANALYST Acute laryngitis without mention of obstruction [...] illness Flank pain, left 789.09 Active Jillina Tyrel ZAPATAN Abdominal pain, other specified site; multiple sites Abdominal pain, generalized 789.07 Active Silvestrellina Tyrel ZAPATAN Abdominal pain, generalized Back pain, thoracic region, left 724.1 Active Jillina Tyrel ZAPATAN Pain in thoracic spine FOOT PAIN, RIGHT [...] TBDP 1 po q6hr PRN Nausea ONDANSETRON 57950678410 Active Jillina Frazell JUNIOR BUSINESS ANALYST Active IBUPROFEN 600 MG TAB 1 tablet by mouth every 6 hours for 7 days, then 1 tablet every 6 hours as needed. Take with food IBUPROFEN 22120861769 Active Jillina Frazell JUNIOR BUSINESS ANALYST Active BACTRIM DS 800-160 MG TAB 1 tab by mouth twice daily TRIMETHOPRIM-SULFAMETHOXAZOLE 30051656064 No Longer Active Gab Padron MD Active ADVAIR DISKUS 250-50 MCG/DOSE AEPB 1 puff BID FLUTICASONE- SALMETEROL 35230460081 Active Jillina Frazell JUNIOR BUSINESS ANALYST Active LEVOTHYROXINE SODIUM 75 MCG TABS Take 1 tab daily LEVOTHYROXINE SODIUM 22870565329 No Longer Active Mariana FLEMING Active SYNTHROID 88 MCG ORAL TABS Take one by mouth daily LEVOTHYROXINE SODIUM 30656211246 Active Mariana HICKEYA Active CHERATUSSIN AC 100-10 MG/5ML SYRP 1 tsp by mouth every 4 hours as needed for cough GUAIFENESIN-CODEINE 08290082789 No Longer Active Gab Padron MD Active POLYTRIM 45788-4.1 UNIT/ML-% SOLN 1 gtt to affected eye q3h x 7 days POLYMYXIN B-TRIMETHOPRIM 13427188243 No Longer Active Gab Padron MD Active FLUTICASONE PROPIONATE 50 MCG/ACT SUSP 1 to 2 sprays each nostril daily 04/21 FLUTICASONE PROPIONATE 70852915944 No Longer Active Gab Padron MD Active TRILEPTAL 600 MG TABS Take one 1 tablet in Am and 1 tablet at night OXCARBAZEPINE 35168636072 Active Gab Padron MD Active CEFDINIR 300 MG CAPS 1 po BID x 10 days CEFDINIR 35864002924 No Longer Active Rodrigo Sarah APRN Active CEFTIN 500 MG TAB 1 twice a day CEFUROXIME AXETIL 78496103714 No Longer Active Gab Padron MD Active AZITHROMYCIN 250 MG TABS 2 po qd x 1 day, then 1 po qd x 4 days AZITHROMYCIN 64490050922 No Longer Active Rodrigo Sarah APRN Active CLARITIN 10 MG TAB 1 tablet by mouth daily as needed for allergies LORATADINE 40826328973 Active Rodrigo Sarah APRN Active OXYCODONE HCL 5 MG ORAL CAPS 1 TAB PO Q HS OXYCODONE HCL 60646051554 No Longer Active Rodrigo Sarah APRN Active NIASPAN 500 MG ORAL CR-TABS 1 pill nightly x 1 week, then 2 pills nightly x 1 week, then 3 pills nightly x 1 week, then 4 pills nightly NIACIN (ANTIHYPERLIPIDEMIC) 14150758995 No Longer Active Rodrigo Sarah APRN Active NIACIN 500 MG TABS 1 pill by mouth nightly x 1 week, then 2 pills x 1 week, then 3 pills x 1 week, then 4 pills nightly - take after evening meal, with applesauce or an apple NIACIN 41661627862 No Longer Active Yolande Lindsay MD PhD Active FISH OIL 1000 MG CAPS 3 pills daily OMEGA-3 FATTY ACIDS 37865271974 Active Yolande Lindsay MD PhD Active TRIAMCINOLONE ACETONIDE 0.1 % CREA apply bid sparingly to rash TRIAMCINOLONE ACETONIDE 10034484517 Active Yolande Lindsay MD PhD Active FUROSEMIDE 20 MG TAB 1 tablet by mouth daily FUROSEMIDE 45008274979 Active Tisha Lambert APRN Active LISINOPRIL 20 MG ORAL TABS 1 tab by mouth daily LISINOPRIL 46760775498 Active Gab Padron MD Active FUROSEMIDE 20 MG TABS 1 pill by mouth daily, for edema FUROSEMIDE 68369280935 No Longer Active Yolande Lindsay MD PhD Active ATORVASTATIN CALCIUM 10 MG TABS 1 pill by mouth daily, for cholesterol 09/06 ATORVASTATIN CALCIUM 15086541598 Active Gab Padron MD Active CALCIUM 600+D PLUS MINERALS 600-400 MG-UNIT ORAL CHEW 1 tab by mouth daily CALCIUM CARBONATE-VIT D-MIN 33372099473 No Longer Active Yolande Lindsay MD PhD Active CYCLOBENZAPRINE HCL 10 MG TABS 1 tablet by mouth three times daily as needed for muscle spasm/pain CYCLOBENZAPRINE HCL 05628948500 Active Yolande Lindsay MD PhD Active ONDANSETRON 4 MG TBDP 1 q4h PRN nausea ONDANSETRON 01448047916 Active Yolande Lindsay MD PhD Active ADULT ASPIRIN EC LOW STRENGTH 81 MG TBEC Take 1 tablet by mouth daily 2014 ASPIRIN 59161010735 No Longer Active Yolande Lindsay MD PhD Active ZOFRAN ODT 4 MG TBDP 1 pill dissolved by mouth every 4 hours if needed for nausea ONDANSETRON 66984817929 No Longer Active Yolande Lindsay MD PhD Active CEFTIN 500 MG TAB 1 twice a day CEFUROXIME AXETIL 77559690355 No Longer Active Yolande Lindsay MD PhD Active ALBUTEROL SULFATE 0.083 % NEBU SOLN one vial per nebulizer every 4-6 hours as needed ALBUTEROL SULFATE 59431560980 No Longer Active Alexis Ordaz MD Active DOXYCYCLINE HYCLATE 100 MG CAP 1 cap by mouth twice daily DOXYCYCLINE HYCLATE 17250924969 No Longer Active Yolande Lindsay MD PhD Active CYCLOBENZAPRINE HCL 10 MG TABS 1/2 - 1 tab by mouth three times daily if needed for spasms/pain CYCLOBENZAPRINE HCL 27804619077 No Longer Active Yolande Lindsay MD PhD Active AZITHROMYCIN 250 MG TABS 2 pills on day 1, then 1 pill daily x 4 days AZITHROMYCIN 45694610380 No Longer Active Yolande Lindsay MD PhD Active XOPENEX 1.25 MG/3ML NEBU 1 neb every 4 hours if needed for cough/congestion LEVALBUTEROL HCL 76828319149 No Longer Active Yolande Lindsay MD PhD Active DOXYCYCLINE HYCLATE 100 MG TAB 1 tab twice a day for 14 days 2013 DOXYCYCLINE HYCLATE 28035059745 No Longer Active Yolande Lindsay MD PhD Active PREVACID 30 MG CPDR Take 1 tablet by mouth daily-PRN LANSOPRAZOLE 50063372854 No Longer Active Yolande Lindsay MD PhD Active PA VITAMIN D-3 2000 UNIT CAPS 1 CAP PO DAILY CHOLECALCIFEROL 95782320098 No Longer Active Yolande Lindsay MD PhD Active CEFDINIR 300 MG CAPS by mouth twice a day CEFDINIR 95706250651 No Longer Active Gab Padron MD Active TOPAMAX 50 MG TABS 1 PO twice daily TOPIRAMATE 93464943766 Active Yolande Lindsay MD PhD Active AZITHROMYCIN 250 MG TABS 2 po qd x 1 day, then 1 po qd x 4 days AZITHROMYCIN 97676714682 No Longer Active Yolande Lindsay MD PhD Active DICLOFENAC SODIUM 75 MG TBEC 1 tablet by q 12 hours PRN headaches DICLOFENAC SODIUM 65252543435 No Longer Active Yolande Lindsay MD PhD Active FLONASE 50 MCG/ACT SUSP 1 spray each nostril am and hs FLUTICASONE PROPIONATE 30546100887 No Longer Active Todd Callaway MD Active ANUSOL-HC 25 MG SUPPOSITORY 1 rectally twice a day as needed for hemorrhoids HYDROCORTISONE JAYDEN (RECTAL) 35935121182 No Longer Active Yolande Lindsay MD PhD Active ANUSOL-HC 25 MG SUPPOSITORY 1 suppository rectally each evening as needed for anal fissure HYDROCORTISONE JAYDEN (RECTAL) 80681217490 No Longer Active LONNIE Iglesias Active VALIUM 5 MG TAB 1 po 30 minutes prior to your MRI DIAZEPAM 29514361710 No Longer Active LONNIE Iglesias Active METHOCARBAMOL 750 MG TABS 1 PO QID PRN METHOCARBAMOL 38629471917 No Longer Active Daphne Wetzel JUNIOR BUSINESS ANALYST Active NITROSTAT 0.4 MG SUBL as directed NITROGLYCERIN 88497812620 No Longer Active Rodrigo Sarah APRN Active ROBAXIN-750 750 MG TABS 2 four times a day for 3 days as needed for muscle spasm, then 1 four times a day as needed METHOCARBAMOL 20159058437 No Longer Active Rodrigo Sarha APRN Active HYDROCODONE-ACETAMINOPHEN 5-325 MG TABS 1 q 4-6 hrs prn HYDROCODONE-ACETAMINOPHEN 77877134702 No Longer Active Rodrigo Sarah APRN Active VERAPAMIL HCL CR 180 MG CR-TABS TAKE 1 TAB DAILY VERAPAMIL HCL 60275595071 No Longer Active Yolande Lindsay MD PhD Active BACTRIM DS 800-160 MG TAB 1 tab by mouth twice daily TRIMETHOPRIM-SULFAMETHOXAZOLE 45541905707 No Longer Active Yolande Lindsay MD PhD Active NEXIUM 40 MG PACK 1 by mouth daily ESOMEPRAZOLE MAGNESIUM 86309260603 No Longer Active Des Hines MD Active EPIPEN 2-CHARLETTE 0.3 MG/0.3ML OMARI as need for allergic reaction EPINEPHRINE 84013104404 Active Yolande Lindsay MD PhD Active NEXIUM 40 MG CPDR 1 PO Q D DAY ESOMEPRAZOLE MAGNESIUM 91253371086 No Longer Active Sadia Perry RN Active NEXIUM 40 MG PACK 1 by mouth daily NEXIUM 40 MG PACK ESOMEPRAZOLE MAGNESIUM Inactive VERAPAMIL HCL CR 180 MG CR-TABS TAKE 1 TAB DAILY VERAPAMIL HCL CR 180 MG CR-TABS VERAPAMIL HCL Inactive HYDROCODONE-ACETAMINOPHEN 5-325 MG TABS 1 q 4-6 hrs prn HYDROCODONE-ACETAMINOPHEN 5-325 MG TABS 637771 HYDROCODONE-ACETAMINOPHEN Inactive ROBAXIN-750 750 MG TABS 2 four times a day for 3 days as needed for muscle spasm, then 1 four times a day as needed ROBAXIN-750 750 MG TABS 206589 METHOCARBAMOL Inactive NITROSTAT 0.4 MG SUBL as directed NITROSTAT 0.4 MG SUBL NITROGLYCERIN Inactive METHOCARBAMOL 750 MG TABS 1 PO QID PRN METHOCARBAMOL 750 MG TABS 459191 METHOCARBAMOL Inactive VALIUM 5 MG TAB 1 po 30 minutes prior to your MRI VALIUM 5 MG TAB 913685 DIAZEPAM Inactive ANUSOL-HC 25 MG SUPPOSITORY 1 suppository rectally each evening as needed for anal fissure ANUSOL-HC 25 MG SUPPOSITORY 9278208 HYDROCORTISONE JAYDEN (RECTAL) Inactive ANUSOL-HC 25 MG SUPPOSITORY 1 rectally twice a day as needed for hemorrhoids ANUSOL-HC 25 MG SUPPOSITORY 5891603 HYDROCORTISONE JAYDEN (RECTAL) Inactive FLONASE 50 MCG/ACT SUSP 1 spray each nostril am and hs FLONASE 50 MCG/ACT SUSP FLUTICASONE PROPIONATE Inactive DICLOFENAC SODIUM 75 MG TBEC 1 tablet by q 12 hours PRN headaches DICLOFENAC SODIUM 75 MG TBEC 932998 DICLOFENAC SODIUM Inactive PA VITAMIN D-3 2000 UNIT CAPS 1 CAP PO DAILY PA VITAMIN D-3 2000 UNIT CAPS CHOLECALCIFEROL Inactive PREVACID 30 MG CPDR Take 1 tablet by mouth daily-PRN PREVACID 30 MG CPDR 272073 LANSOPRAZOLE Inactive DOXYCYCLINE HYCLATE 100 MG TAB 1 tab twice a day for 14 days 2013 DOXYCYCLINE HYCLATE 100 MG TAB 3332133 DOXYCYCLINE HYCLATE Inactive XOPENEX 1.25 MG/3ML NEBU 1 neb every 4 hours if needed for cough/congestion XOPENEX 1.25 MG/3ML NEBU 622762 LEVALBUTEROL HCL Inactive CYCLOBENZAPRINE HCL 10 MG TABS 1/2 - 1 tab by mouth three times daily if needed for spasms/pain CYCLOBENZAPRINE HCL 10 MG TABS 456041 CYCLOBENZAPRINE HCL Inactive ALBUTEROL SULFATE 0.083 % NEBU SOLN one vial per nebulizer every 4-6 hours as needed ALBUTEROL SULFATE 0.083 % NEBU SOLN 175252 ALBUTEROL SULFATE Inactive CEFTIN 500 MG TAB 1 twice a day CEFTIN 500 MG TAB 869936 CEFUROXIME AXETIL Inactive ZOFRAN ODT 4 MG TBDP 1 pill dissolved by mouth every 4 hours if needed for nausea ZOFRAN ODT 4 MG TBDP 955183 ONDANSETRON Inactive ADULT ASPIRIN EC LOW STRENGTH 81 MG TBEC Take 1 tablet by mouth daily 2014 ADULT ASPIRIN EC LOW STRENGTH 81 MG TBEC 110014 ASPIRIN Inactive CALCIUM 600+D PLUS MINERALS 600-400 [...] or an apple NIACIN 500 MG TABS 331500 NIACIN Inactive NIASPAN 500 MG ORAL CR-TABS 1 pill nightly x 1 week, then 2 pills nightly x 1 week, then 3 pills nightly x 1 week, then 4 pills nightly NIASPAN 500 MG ORAL CR-TABS NIACIN (ANTIHYPERLIPIDEMIC) Inactive OXYCODONE HCL 5 MG ORAL CAPS 1 TAB PO Q HS OXYCODONE HCL 5 MG ORAL CAPS 7198288 OXYCODONE HCL Inactive FLUTICASONE PROPIONATE 50 MCG/ACT SUSP 1 to 2 sprays each nostril daily 04/21 FLUTICASONE PROPIONATE 50 MCG/ACT SUSP 920068 FLUTICASONE PROPIONATE Inactive POLYTRIM 45188-6.1 UNIT/ML-% SOLN 1 gtt to affected eye q3h x 7 days POLYTRIM 32146-1.1 UNIT/ML-% SOLN 601765 POLYMYXIN B- TRIMETHOPRIM Inactive CHERATUSSIN AC 100-10 MG/5ML SYRP 1 tsp by mouth every 4 hours as needed for cough CHERATUSSIN AC 100-10 MG/5ML SYRP 193178 GUAIFENESIN-CODEINE Inactive LEVOTHYROXINE SODIUM 75 MCG TABS Take 1 tab daily LEVOTHYROXINE SODIUM 75 MCG TABS 821166 LEVOTHYROXINE SODIUM Inactive BACTRIM DS 800-160 MG TAB 1 tab by mouth twice daily BACTRIM DS 800-160 MG TAB 105259 TRIMETHOPRIM-SULFAMETHOXAZOLE Inactive AZITHROMYCIN 250 MG TABS 2 po qd x 1 day, then 1 po qd x 4 days AZITHROMYCIN 250 MG TABS 5859241 AZITHROMYCIN Inactive CEFDINIR 300 MG CAPS by mouth twice a day CEFDINIR 300 MG CAPS 870735 CEFDINIR Inactive AZITHROMYCIN 250 MG TABS 2 pills on day 1, then 1 pill daily x 4 days AZITHROMYCIN 250 MG TABS 3651562 AZITHROMYCIN Inactive DOXYCYCLINE HYCLATE 100 MG CAP 1 cap by mouth twice daily DOXYCYCLINE HYCLATE 100 MG CAP 3085435 DOXYCYCLINE HYCLATE Inactive FUROSEMIDE 20 MG TABS 1 pill by mouth daily, for edema FUROSEMIDE 20 MG TABS 319447 FUROSEMIDE Inactive AZITHROMYCIN 250 MG TABS 2 po qd x 1 day, then 1 po qd x 4 days AZITHROMYCIN 250 MG TABS 2680265 AZITHROMYCIN Inactive CEFTIN 500 MG TAB 1 twice a day CEFTIN 500 MG TAB 384150 CEFUROXIME AXETIL Inactive CEFDINIR 300 MG CAPS 1 po BID x 10 days CEFDINIR 300 MG CAPS 679056 CEFDINIR Inactive BACTRIM DS 800-160 MG TAB 1 tab by mouth twice daily BACTRIM DS 800-160 MG TAB 886304 TRIMETHOPRIM-SULFAMETHOXAZOLE Inactive Immunizations Vaccine Administration Date Value Standard Description Seasonal influenza vaccine, injectable, containing preservative, for > 3 years old (Afluria, FluLaval, Fluzone, Fluvirin, Fluarix, Agriflu(>=18 yo)) Fluzone (>3 yrs.) [BCV493] Influenza, seasonal, injectable influenza immunization (Flu Vax) has been administered Influenza - Unspecified Formulation [CVX88] influenza virus vaccine, unspecified formulation Seasonal influenza vaccine, injectable, containing preservative, for > 3 years old (Afluria, FluLaval, Fluzone, Fluvirin, Fluarix, Agriflu(>=18 yo)) Fluzone (>3 yrs.) [WIM173] Influenza, seasonal, injectable pneumococcal immunization administered Pneumovax 23 [CVX33] pneumococcal polysaccharide vaccine, 23 valent dT (Diphtheria and Tetanus) booster given given Td(adult) unspecified formulation Boostrix (Tetanus toxoid, reduced diphtheria toxoid and acellular pertussis vaccine, adsorbed), booster Boostrix [GYB637] tetanus toxoid, reduced diphtheria toxoid, and acellular [...] Panel - Chemistry sodium, serum 142 mmol/L 081-036 9844/06/30 potassium, serum 4.4 mmol/L 3.5-5.2 chloride, serum 108 mmol/L 98-107 carbon dioxide, venous blood 25.1 mmol/L 21.0-32.0 blood glucose 82 mg/dL 65-110 calcium, serum 9.1 mg/dL 8.5-10.1 urea nitrogen, blood 18 mg/dL 7-18 creatinine, serum 1.31 mg/dL 0.55-1.30 Lab Report: [facility] Advanced Lipid and Inlammation Panel /31508 - Chemistry cholesterol, serum 148 mg/dL 285-440 6764/09/02 HDL cholesterol, serum 55 mg/dL > OR=46 [...] (L) - Chemistry sodium, serum 145 mmol/L 640-508 6654/09/02 potassium, serum 4.6 mmol/L 3.5-5.2 chloride, serum [...] Rate - Chemistry sodium, serum 139 mmol/L 346-840 3500/03/24 carbon dioxide, venous blood 22.4 mmol/L 21.0-32.0 [...] ... - Chemistry sodium, serum 143 mmol/L 042-789 3670/05/02 carbon dioxide, venous blood 25.6 mmol/L 21.0-32.0 [...] Negative mg/dL Negative sodium, serum 142 mmol/L 213-988 5405/07/18 carbon dioxide, venous blood 27.8 mmol/L 21.0-32.0 [...] mg/dL Encounters Code Encounter Date Provider Facility CPT-61810 Level 3 Est. Patient 10:29:41 CDT Rodrigo Sarah [facility] CPT-03433 Level 4 Est. Patient 17:51:05 CDT Gab Padron MD [facility] CPT-79434 Level 3 Est. Patient 14:18:08 CDT Gab Padron MD [facility] CPT-16079 Level 4 Est. Patient 10:18:54 CDT Gab Padron MD [facility] CPT-87990 Level 3 Est. Patient 11:30:07 CDT Rodrigo Sarah [facility] CPT-78353 Level 4 Est. Patient 21:02:30 SUPPLEMENTAL MANAGER Gab Padron MD [facility] CPT-43022 Level 3 Est. Patient 11:02:19 SUPPLEMENTAL MANAGER Gab Padron MD [facility] CPT-36567 Level 4 Est. Patient 22:24:31 SUPPLEMENTAL MANAGER Gab Padron MD [facility] CPT-07671 Level 3 Est. Patient 18:33:46 SUPPLEMENTAL MANAGER Gab Padron MD [facility] CPT-17766 Level 3 Est. Patient 16:19:11 CDT Yolande Lindsay MD PhD [facility]-23629 Level 3 Est. Patient 18:59:14 CDT Yolande Lindsay MD [facility]-14435 Level 4 Est. Patient 21:29:26 CDT Yolande Lindsay MD [facility]-96465 Level 3 Est. Patient 07:37:45 CDT Yolande Lindsay MD [facility]-57065 Level 3 Est. Patient 17:03:46 CDT Yolande Lindsay MD [facility]-26850 Level 4 Est. Patient 20:02:13 SUPPLEMENTAL MANAGER Yolande Lindsay MD [facility]-00130 Level 3 Est. Patient 16:02:07 SUPPLEMENTAL MANAGER Alexis Ordaz MD [facility]-11211 Level 3 Est. Patient 12:41:24 SUPPLEMENTAL MANAGER Yolande Lindsay MD [facility]-03683 Level 3 Est. Patient 15:41:20 SUPPLEMENTAL MANAGER Yolande Lindsay MD [facility]-99359 Level 3 Est. Patient 13:20:02 SUPPLEMENTAL MANAGER Yolande Lindsay MD [facility]-57535 Level 3 Est. Patient 15:00:38 CDT Jared Og MD [facility]-69070 Level 3 Est. Patient 10:22:32 CDT Yolande Lindsay MD [facility]-37712 Level 3 Est. Patient 17:12:58 CDT Yolande Lindsay MD [facility]-43740 Level 4 Est. Patient 13:30:58 CDT Yolande Lindsay MD [facility]-42074 Level 4 New Patient 09:02:42 CDT Jared Og MD [facility]-21631 Level 3 Est. Patient 08:19:07 CDT Yolande Lindsay MD [facility]-76217 Level 3 Est. Patient 12:00:13 SUPPLEMENTAL MANAGER Gab Padron MD [facility]-08081 Level 3 Est. Patient 16:15:23 SUPPLEMENTAL MANAGER Yolande Lindsay MD [facility]92530 Level 2 Est. Patient 19:47:15 CDT Yolande Lindsay MD [facility]26332 Level 3 Est. Patient 21:38:31 CDT Yolande Lindsay MD [facility]55598 Level 3 Est. Patient 10:25:12 CDT Aidel PERAZA [facility]-52682 Level 4 Est. Patient 10:51:58 CDT Yolande Lindsay MD [facility]-74555 Level 3 Est. Patient 14:04:55 SUPPLEMENTAL MANAGER Rodrigo Sarah [facility]-83798 Level 3 Est. Patient 10:46:35 SUPPLEMENTAL MANAGER Rodrigo Sarah [facility]-77214 Level 3 Est. Patient 14:24:37 SUPPLEMENTAL MANAGER Yolande Lindsay MD [facility]-06905 Level 3 Est. Patient 17:41:58 SUPPLEMENTAL MANAGER Yolande Lindsay MD [facility]99247 Level 2 Est. Patient 22:01:41 SUPPLEMENTAL MANAGER Rodrigo Sarah [facility]-92527 Level 2 Est. Patient 22:01:11 SUPPLEMENTAL MANAGER Rodrigo Sarah [facility]88308 Level 3 Est. Patient 10:12:29 SUPPLEMENTAL MANAGER Rodrigo Sarah [facility]-74733 Level 3 Est. Patient 11:05:44 CDT Alexis Ordaz MD [facility] CPT-26999 Level 3 Est. Patient 14:57:20 CDT Yolande Lindsay MD [facility] CPT-50725 Level 3 Est. Patient 14:40:57 CDT Yolande Lindsay MD [facility] CPT-96498 Level 3 Est. Patient 20:55:40 CDT Yolande Lindsay MD [facility] CPT-26549 Level 3 Est. Patient 12:42:38 SUPPLEMENTAL MANAGER Yolande Lindsay MD [facility] CPT-66775 Level 3 Est. Patient 11:54:49 SUPPLEMENTAL MANAGER Des Hines MD [facility] CPT-59481 Level 3 Est. Patient 17:06:38 CDT Dewayne PERAZA [facility] Procedures Code Procedure Name Date Entry Date Standard Description CPT-55691 Chest 2V Frontal and Lat - XRAY USE ONLY 10:48:51 CDT CPT-81872 LS spine comp w obliq 13:28:00 SUPPLEMENTAL MANAGER CPT-J1040 Depo Medrol 80 mg (Methyl Prednisolone Acetate) 10:51: 28 SUPPLEMENTAL MANAGER CPT-J1100 Decadron 8mg (Dexamethasone) 10:51:28 SUPPLEMENTAL MANAGER CPT-23069 Abx/Therapy Injection 10:51:28 SUPPLEMENTAL MANAGER CPT-J1100 Decadron 8mg (Dexamethasone) 21:02:30 SUPPLEMENTAL MANAGER CPT-J1040 Depo Medrol 80 mg (Methyl Prednisolone Acetate) 21:02: 30 SUPPLEMENTAL MANAGER [id number] Event Monitor - MC Transmission 09:12:32 CDT 08/06 [id number] Event Monitor - MC review and interp 09:12:32 CDT [id number] Event Monitor - MC recording 09:12:32 CDT CPT-48619 EKG Trac and Interp 16:50:22 CDT CPT-J1030 Depo Medrol 40 mg (Methyl Prednisolone Acetate) 17:05: 54 CDT CPT-J1100 Decadron 4mg (Dexamethasone) 17:05:54 CDT CPT-01046 Abx/Therapy Injection 17:05:54 CDT CPT-J1100 Decadron 4mg (Dexamethasone) 16:55:28 CDT CPT-J1030 Depo Medrol 40 mg (Methyl Prednisolone Acetate) 16:55: 28 CDT CPT-10369 Ankle Complete - Min 3V 15:58:50 CDT CPT-09071 Knee 3V 15:58:50 CDT CPT-32698 Hip comp min 2V 15:58:50 CDT CPT-J2270 Morphine Sulfate 10 mg 14:25:44 SUPPLEMENTAL MANAGER CPT-J2550 Phenergan 12.5 mg (Promethazine) 14:25:44 SUPPLEMENTAL MANAGER CPT-08749 Abx/Therapy Injection 14:25:44 SUPPLEMENTAL MANAGER CPT-J2550 Phenergan 12.5 mg (Promethazine) 14:08:03 SUPPLEMENTAL MANAGER CPT-J2270 Morphine Sulfate 10 mg 14:08:03 SUPPLEMENTAL MANAGER CPT-28704 Bladder Scan 15:00:38 CDT CPT-TCMM Transitional Care Mgmt-Moderate 09:52:22 CDT CPT-J1030 Depo Medrol 40 mg (Methyl Prednisolone Acetate) 10:55: 18 CDT CPT-J1100 Decadron 4mg (Dexamethasone) 10:55:18 CDT CPT-33312 Abx/Therapy Injection 10:55:18 CDT CPT-J1030 Depo Medrol 40 mg (Methyl Prednisolone Acetate) 10:22: 32 CDT CPT-J1100 Decadron 4mg (Dexamethasone) 10:22:32 CDT CPT-86226 Postop F/U Visit 14:37:13 CDT CPT-77027 Ankle Complete - Min 3V 17:11:58 CDT CPT-83655 Foot comp min 3V 17:11:58 CDT CPT-90956 Bladder Scan 09:56:58 CDT CPT-39891 Postop F/U Visit 09:56:58 CDT CPT-55892 Cystoscopy 09:02:42 CDT CPT-42974 Bladder Scan 09:02:42 CDT CPT-59006 Abd single AP View 16:00:35 CDT CPT-75045 Administration single or combination vaccine inc oral 10 :15:43 CDT CPT-69863 Influenza split virus > age 3 10:15:43 CDT CPT-75058 Nail Avulsion 09:24:57 CDT CPT-OV Office Visit 11:15:41 CDT CPT-60333 Abx/Therapy Injection 10:51:30 CDT CPT-J3301 Kenalog 40 mg (Triamcinolone Acetonide) 10:25:12 CDT CPT-J1100 Decadron 4mg (Dexamethasone) 10:25:12 CDT CPT-34747 Anoscopy diagnostic 10:36:12 CDT CPT-OV Office Visit 15:34:31 CDT CPT-71062 Abx/Therapy Injection 08:21:15 SUPPLEMENTAL MANAGER CPT-J1885 Toradol 60 mg (Ketorolac) 10:46:35 SUPPLEMENTAL MANAGER CPT-OV Office Visit 19:51:16 SUPPLEMENTAL MANAGER CPT-30076 Spec Collection and Handling Fee 14:34:18 SUPPLEMENTAL MANAGER CPT-PV Prev. Care Visit 14:19:18 SUPPLEMENTAL MANAGER CPT-45439 Postop F/U Visit 14:47:51 SUPPLEMENTAL MANAGER CPT-35263 Postop F/U Visit 15:15:14 SUPPLEMENTAL MANAGER CPT-31116 Postop F/U Visit 14:41:43 CDT CPT-63452 Postop F/U Visit 15:47:46 CDT CPT-OV Office Visit 15:27:23 CDT CPT-OV Office Visit 17:20:34 CDT CPT-53011 Abx/Therapy Injection 15:05:57 CDT CPT-J1100 Decadron 8mg (Dexamethasone) 14:44:57 CDT CPT-J1040 Depo Medrol 80 mg (Methyl Prednisolone Acetate) 14:44: 57 CDT CPT-JTINJ Joint Injection 10:17:37 CDT CPT-78083 Administration 2+ single or combination vaccines inc oral 13:01:46 SUPPLEMENTAL MANAGER CPT-21037 Administration single or combination vaccine inc oral 13 :01:46 SUPPLEMENTAL MANAGER CPT-56516 Pneumovax 13:01:46 SUPPLEMENTAL MANAGER CPT-42120 Influenza split virus > age 3 13:01:46 SUPPLEMENTAL MANAGER CPT-78424 Administration single or combination vaccine inc oral 08 :56:49 CDT CPT-79287 Tdap 08:56:49 CDT
--- OUTSIDE RECORDS SUMMARY | 2017-03-21 21:39 | XMS REPORT | Clinical Summary ---
Author Author Admin, MARGRET Organization [facility] Address Unknown Phone Unavailable Allergies, Adverse Reactions, Alerts Allergy Name Reaction Description Start Date Severity Status Provider CHLORHEXIDINE GLUCONATE tongue and gums swollen Critical Active [facility] RMA NORFLEX Rash Critical Active Rodrigo Sarah [facility] [employer] TRAZODONE HCL sees things Critical Active Dewayne [...] Esophageal reflux RECTAL BLEEDING 569.3 Resolved Yolande Lnidsay MD PhD Hemorrhage of rectum and anus [...] 785.1 Active Yolande Lindsay MD PhD Palpitations FOOT PAIN, RIGHT ICD-729.5 Inactive Yolande Lindsay [...] tab by mouth daily CALCIUM CARBONATE-VIT D-MIN 00923714242 Active Yolande Lindsay MD PhD Active ONDANSETRON 4 MG TBDP 1 q4h PRN nausea ONDANSETRON 99629487178 Active Yolande Lindsay MD PhD Active ADULT ASPIRIN EC LOW STRENGTH 81 MG TBEC Take 1 tablet by mouth daily 2014 ASPIRIN 33965562267 No Longer Active Yolande Lindsay MD PhD Active ZOFRAN ODT 4 MG TBDP 1 pill dissolved by mouth every 4 hours if needed for nausea ONDANSETRON 48592162359 No Longer Active Yolande Lindsay MD PhD Active CEFTIN 500 MG TAB 1 twice a day CEFUROXIME AXETIL 53762980524 No Longer Active Yolande Lindsay MD PhD Active ALBUTEROL SULFATE 0.083 % NEBU SOLN one vial per nebulizer every 4-6 hours as needed ALBUTEROL SULFATE 69013935418 No Longer Active Alexis Ordaz MD Active DOXYCYCLINE HYCLATE 100 MG CAP 1 cap by mouth twice daily DOXYCYCLINE HYCLATE 00733090542 No Longer Active Yolande Lindsay MD PhD Active CYCLOBENZAPRINE HCL 10 MG TABS 1/2 - 1 tab by mouth three times daily if needed for spasms/pain CYCLOBENZAPRINE HCL 42080176049 No Longer Active Yolande Lindsay MD PhD Active TRILEPTAL 600 MG TABS Take one 1/2 tablet in Am and 1 tablet at night OXCARBAZEPINE 23532558280 Active Yolande Lindsay MD PhD Active AZITHROMYCIN 250 MG TABS 2 pills on day 1, then 1 pill daily x 4 days AZITHROMYCIN 33543722864 No Longer Active Yolande Lindsay MD PhD Active XOPENEX 1.25 MG/3ML NEBU 1 neb every 4 hours if needed for cough/congestion LEVALBUTEROL HCL 31738108129 No Longer Active Yolande Lindsay MD PhD Active DOXYCYCLINE HYCLATE 100 MG TAB 1 tab twice a day for 14 days 2013 DOXYCYCLINE HYCLATE 25523204055 No Longer Active Yolande Lindsay MD PhD Active LEVOTHYROXINE SODIUM 75 MCG TABS Take 1 tab daily LEVOTHYROXINE SODIUM 09336132629 Active Yolande Lindsay MD PhD Active PREVACID 30 MG CPDR Take 1 tablet by mouth daily-PRN LANSOPRAZOLE 89325849661 No Longer Active Yolande Lindsay MD PhD Active PA VITAMIN D-3 2000 UNIT CAPS 1 CAP PO DAILY CHOLECALCIFEROL 50042876904 No Longer Active Yolande Lindsay MD PhD Active CEFDINIR 300 MG CAPS by mouth twice a day CEFDINIR 21285249798 No Longer Active Gab Padron MD Active TOPAMAX 50 MG TABS 1 PO twice daily TOPIRAMATE 07140159628 Active Yolande Lindsay MD PhD Active AZITHROMYCIN 250 MG TABS 2 po qd x 1 day, then 1 po qd x 4 days AZITHROMYCIN 57941910517 No Longer Active Yolande Lindsay MD PhD Active DICLOFENAC SODIUM 75 MG TBEC 1 tablet by q 12 hours PRN headaches DICLOFENAC SODIUM 24754303535 No Longer Active Yolande Lindsay MD PhD Active FLONASE 50 MCG/ACT SUSP 1 spray each nostril am and hs FLUTICASONE PROPIONATE 69740345192 No Longer Active Todd Callaway MD Active ANUSOL-HC 25 MG SUPPOSITORY 1 rectally twice a day as needed for hemorrhoids HYDROCORTISONE JAYDEN (RECTAL) 76314852384 No Longer Active Yolande Lindsay MD PhD Active ANUSOL-HC 25 MG SUPPOSITORY 1 suppository rectally each evening as needed for anal fissure HYDROCORTISONE JAYDEN (RECTAL) 20598930967 No Longer Active LONNIE Iglesias Active VALIUM 5 MG TAB 1 po 30 minutes prior to your MRI DIAZEPAM 32771520222 No Longer Active LONNIE Iglesias Active METHOCARBAMOL 750 MG TABS 1 PO QID PRN METHOCARBAMOL 47997676252 No Longer Active Daphne Wetzel APRN Active NITROSTAT 0.4 MG SUBL as directed NITROGLYCERIN 96987251407 No Longer Active Rodrigo Sarah APRN Active ROBAXIN-750 750 MG TABS 2 four times a day for 3 days as needed for muscle spasm, then 1 four times a day as needed METHOCARBAMOL 76317360252 No Longer Active Rodrigo Sarah APRN Active HYDROCODONE-ACETAMINOPHEN 5-325 MG TABS 1 q 4-6 hrs prn HYDROCODONE-ACETAMINOPHEN 73482952338 No Longer Active Rodrigo Sarah APRN Active VERAPAMIL HCL CR 180 MG CR-TABS TAKE 1 TAB DAILY VERAPAMIL HCL 27625766829 No Longer Active Yolande Lindsay MD PhD Active BACTRIM DS 800-160 MG TAB 1 tab by mouth twice daily TRIMETHOPRIM-SULFAMETHOXAZOLE 41692360395 No Longer Active Yolande Lindsay MD PhD Active NEXIUM 40 MG PACK 1 by mouth daily ESOMEPRAZOLE MAGNESIUM 61443577801 No Longer Active Des Hines MD Active EPIPEN 2-CHARLETTE 0.3 MG/0.3ML OMARI as need for allergic reaction EPINEPHRINE 32353835797 Active Yolande Lindsay MD PhD Active LISINOPRIL 10 MG TABS 1 PO Q D FOR BP LISINOPRIL 49004727549 Active Yolande Lindsay MD PhD Active NEXIUM 40 MG CPDR 1 PO Q D DAY ESOMEPRAZOLE MAGNESIUM 85978342917 No Longer Active Sadia Orlando RIVERA Active NEXIUM 40 MG PACK 1 by mouth daily NEXIUM 40 MG PACK ESOMEPRAZOLE MAGNESIUM Inactive VERAPAMIL HCL CR 180 MG CR-TABS TAKE 1 TAB DAILY VERAPAMIL HCL CR 180 MG CR-TABS VERAPAMIL HCL Inactive HYDROCODONE-ACETAMINOPHEN 5-325 MG TABS 1 q 4-6 hrs prn HYDROCODONE-ACETAMINOPHEN 5-325 MG TABS 245118 HYDROCODONE-ACETAMINOPHEN Inactive ROBAXIN-750 750 MG TABS 2 four times a day for 3 days as needed for muscle spasm, then 1 four times a day as needed ROBAXIN-750 750 MG TABS 289846 METHOCARBAMOL Inactive NITROSTAT 0.4 MG SUBL as directed NITROSTAT 0.4 MG SUBL NITROGLYCERIN Inactive METHOCARBAMOL 750 MG TABS 1 PO QID PRN METHOCARBAMOL 750 MG TABS 325051 METHOCARBAMOL Inactive VALIUM 5 MG TAB 1 po 30 minutes prior to your MRI VALIUM 5 MG TAB 745371 DIAZEPAM Inactive ANUSOL-HC 25 MG SUPPOSITORY 1 suppository rectally each evening as needed for anal fissure ANUSOL-HC 25 MG SUPPOSITORY 8785446 HYDROCORTISONE JAYDEN (RECTAL) Inactive ANUSOL-HC 25 MG SUPPOSITORY 1 rectally twice a day as needed for hemorrhoids ANUSOL-HC 25 MG SUPPOSITORY 8448397 HYDROCORTISONE JAYDEN (RECTAL) Inactive FLONASE 50 MCG/ACT SUSP 1 spray each nostril am and hs FLONASE 50 MCG/ACT SUSP 280387 FLUTICASONE PROPIONATE Inactive DICLOFENAC SODIUM 75 MG TBEC 1 tablet by q 12 hours PRN headaches DICLOFENAC SODIUM 75 MG TBEC 352183 DICLOFENAC SODIUM Inactive PA VITAMIN D-3 2000 UNIT CAPS 1 CAP PO DAILY PA VITAMIN D-3 2000 UNIT CAPS CHOLECALCIFEROL Inactive PREVACID 30 MG CPDR Take 1 tablet by mouth daily-PRN PREVACID 30 MG CPDR 402227 LANSOPRAZOLE Inactive DOXYCYCLINE HYCLATE 100 MG TAB 1 tab twice a day for 14 days 2013 DOXYCYCLINE HYCLATE 100 MG TAB 122148 DOXYCYCLINE HYCLATE Inactive XOPENEX 1.25 MG/3ML NEBU 1 neb every 4 hours if needed for cough/congestion XOPENEX 1.25 MG/3ML NEBU LEVALBUTEROL HCL Inactive CYCLOBENZAPRINE HCL 10 MG TABS 1/2 - 1 tab by mouth three times daily if needed for spasms/pain CYCLOBENZAPRINE HCL 10 MG TABS 596356 CYCLOBENZAPRINE HCL Inactive ALBUTEROL SULFATE 0.083 % NEBU SOLN one vial per nebulizer every 4-6 hours as needed ALBUTEROL SULFATE 0.083 % NEBU SOLN 337874 ALBUTEROL SULFATE Inactive CEFTIN 500 MG TAB 1 twice a day CEFTIN 500 MG TAB 068716 CEFUROXIME AXETIL Inactive ZOFRAN ODT 4 MG TBDP 1 pill dissolved by mouth every 4 hours if needed for nausea ZOFRAN ODT 4 MG TBDP 311248 ONDANSETRON Inactive ADULT ASPIRIN EC LOW STRENGTH 81 MG TBEC Take 1 tablet by mouth daily 2014 ADULT ASPIRIN EC LOW STRENGTH 81 MG TBEC 324503 ASPIRIN Inactive BACTRIM DS 800-160 MG TAB 1 tab by mouth twice daily BACTRIM DS 800-160 MG TAB TRIMETHOPRIM-SULFAMETHOXAZOLE Inactive AZITHROMYCIN 250 MG TABS 2 po qd x 1 day, then 1 po qd x 4 days AZITHROMYCIN 250 MG TABS 7743541 AZITHROMYCIN Inactive CEFDINIR 300 MG CAPS by mouth twice a day CEFDINIR 300 MG CAPS 20020708 CEFDINIR Inactive AZITHROMYCIN 250 MG TABS 2 pills on day 1, then 1 pill daily x 4 days AZITHROMYCIN 250 MG TABS 7844466 AZITHROMYCIN Inactive DOXYCYCLINE HYCLATE 100 MG CAP 1 cap by mouth twice daily DOXYCYCLINE HYCLATE 100 MG CAP 19890510 DOXYCYCLINE HYCLATE Inactive Immunizations Vaccine Administration Date Value Standard Description Seasonal influenza vaccine, injectable, containing preservative, for > 3 years old (Afluria, FluLaval, Fluzone, Fluvirin, Fluarix, Agriflu(>=18 yo)) Fluzone (>3 yrs.) [NIP000] Influenza, seasonal, injectable influenza immunization (Flu Vax) has been administered Influenza - Unspecified Formulation [CVX88] influenza virus vaccine, unspecified formulation Seasonal influenza vaccine, injectable, containing preservative, for > 3 years old (Afluria, FluLaval, Fluzone, Fluvirin, Fluarix, Agriflu(>=18 yo)) Fluzone (>3 yrs.) [IQY024] Influenza, seasonal, injectable pneumococcal immunization administered Pneumovax 23 [CVX33] pneumococcal polysaccharide vaccine, 23 valent dT (Diphtheria and Tetanus) booster given given Td(adult) unspecified formulation Boostrix (Tetanus toxoid, reduced diphtheria toxoid and acellular pertussis vaccine, adsorbed), booster Boostrix [[id number]] tetanus toxoid, reduced diphtheria toxoid, and acellular [...] Panel - Chemistry sodium, serum 144 mmol/L 580-651 7205/01/21 potassium, serum 4.2 mmol/L 3.5-5.2 chloride, serum [...] Panel - Chemistry sodium, serum 144 mmol/L 499-788 9025/12/15 potassium, serum 5.4 mmol/L 3.5-5.2 chloride, serum [...] dipstick Negative Negative sodium, serum 143 mmol/L 467-672 7985/10/24 potassium, serum 3.9 mmol/L 3.5-5.2 chloride, serum [...] 51 mg/dL 30-200 cholesterol, serum 173 mg/dL 500-047 9888/04/28 HDL cholesterol, serum 63 mg/dL 32-96 LDL [...] 1.010 Encounters Code Encounter Date Provider Facility CPT-29303 Level 3 Est. Patient 17:03:46 CDT Yolande Lindsay MD PhD [facility] CPT-98626 Level 4 Est. Patient 20:02:13 ICU RN Yolande Lindsay MD PhD [facility] CPT-15215 Level 3 Est. Patient 16:02:07 ICU RN Alexis Ordaz MD [facility] CPT-32028 Level 3 Est. Patient 12:41:24 ICU RN Yolande Lindsay MD [facility] CPT-39654 Level 3 Est. Patient 15:41:20 ICU RN Yolande Lindsay MD [facility] CPT-39410 Level 3 Est. Patient 13:20:02 ICU RN Yolande Lindsay MD [facility] CPT-38418 Level 3 Est. Patient 15:00:38 CDT Jared Og MD [facility] CPT-83650 Level 3 Est. Patient 10:22:32 CDT Yolande Lindsay MD [facility] CPT-19759 Level 3 Est. Patient 17:12:58 CDT Yolande Lindsay MD [facility] CPT-83045 Level 4 Est. Patient 13:30:58 CDT Yolande Lindsay MD [facility] CPT-44656 Level 4 New Patient 09:02:42 CDT Jared Og MD [facility]-85016 Level 3 Est. Patient 08:19:07 CDT Yolande Lindsay MD [facility] CPT-83866 Level 3 Est. Patient 12:00:13 ICU RN Gab Padron MD [facility] CPT-09359 Level 3 Est. Patient 16:15:23 ICU RN Yolande Lindsay MD [facility] CPT-11649 Level 2 Est. Patient 19:47:15 CDT Yolande Lindsay MD [facility]-20696 Level 3 Est. Patient 21:38:31 CDT Yolande Lindsay MD [facility] CPT-30938 Level 3 Est. Patient 10:25:12 CDT Adiel PERAZA [facility] CPT-58915 Level 4 Est. Patient 10:51:58 CDT Yolande Lindsay MD [facility]-58430 Level 3 Est. Patient 14:04:55 ICU RN Rodrigo Sarah [facility]-15355 Level 3 Est. Patient 10:46:35 ICU RN Rodrigo Sarah [facility] CPT-40360 Level 3 Est. Patient 14:24:37 ICU RN Yolande Lindsay MD [facility]-39605 Level 3 Est. Patient 17:41:58 ICU RN Yolande Lindsay MD [facility]-73182 Level 2 Est. Patient 22:01:41 ICU RN Rodrigo Sarah [facility]-20613 Level 2 Est. Patient 22:01:11 ICU RN Rodrigo Sarah [facility] CPT-87435 Level 3 Est. Patient 10:12:29 ICU RN Rodrigo Sarah [facility] CPT-97243 Level 3 Est. Patient 11:05:44 CDT Alexis Ordaz MD [facility]-77469 Level 3 Est. Patient 14:57:20 CDT Yolande Lindsay MD [facility]-48118 Level 3 Est. Patient 14:40:57 CDT Yolande Lindsay MD [facility] CPT-16777 Level 3 Est. Patient 20:55:40 CDT Yolande Lindsay MD [facility]-85999 Level 3 Est. Patient 12:42:38 ICU RN Yolande Lindsay MD [facility]-91346 Level 3 Est. Patient 11:54:49 ICU RN Des Hines MD [facility]-27718 Level 3 Est. Patient 17:06:38 CDT Dewayne PERAZA [facility] Procedures Code Procedure Name Date Entry Date Standard Description CPT-92734 EKG Trac and Interp 16:50:22 CDT CPT-J1030 Depo Medrol 40 mg (Methyl Prednisolone Acetate) 17:05: 54 CDT CPT-J1100 Decadron 4mg (Dexamethasone) 17:05:54 CDT CPT-73416 Abx/Therapy Injection 17:05:54 CDT CPT-J1100 Decadron 4mg (Dexamethasone) 16:55:28 CDT CPT-J1030 Depo Medrol 40 mg (Methyl Prednisolone Acetate) 16:55: 28 CDT CPT-92170 Ankle Complete - Min 3V 15:58:50 CDT CPT-18190 Knee 3V 15:58:50 CDT CPT-84163 Hip comp min 2V 15:58:50 CDT CPT-J2270 Morphine Sulfate 10 mg 14:25:44 ICU RN CPT-J2550 Phenergan 12.5 mg (Promethazine) 14:25:44 ICU RN CPT-19968 Abx/Therapy Injection 14:25:44 ICU RN CPT-J2550 Phenergan 12.5 mg (Promethazine) 14:08:03 ICU RN CPT-J2270 Morphine Sulfate 10 mg 14:08:03 ICU RN CPT-34674 Bladder Scan 15:00:38 CDT CPT-TCMM Transitional Care Mgmt-Moderate 09:52:22 CDT CPT-J1030 Depo Medrol 40 mg (Methyl Prednisolone Acetate) 10:55: 18 CDT CPT-J1100 Decadron 4mg (Dexamethasone) 10:55:18 CDT CPT-79914 Abx/Therapy Injection 10:55:18 CDT CPT-J1030 Depo Medrol 40 mg (Methyl Prednisolone Acetate) 10:22: 32 CDT CPT-J1100 Decadron 4mg (Dexamethasone) 10:22:32 CDT CPT-89042 Postop F/U Visit 14:37:13 CDT CPT-32000 Ankle Complete - Min 3V 17:11:58 CDT CPT-92566 Foot comp min 3V 17:11:58 CDT CPT-96899 Bladder Scan 09:56:58 CDT CPT-82095 Postop F/U Visit 09:56:58 CDT CPT-95482 Cystoscopy 09:02:42 CDT CPT-05137 Bladder Scan 09:02:42 CDT CPT-66332 Abd single AP View 16:00:35 CDT CPT-95630 Administration single or combination vaccine inc oral 10 :15:43 CDT CPT-17361 Influenza split virus > age 3 10:15:43 CDT CPT-12043 Nail Avulsion 09:24:57 CDT CPT-OV Office Visit 11:15:41 CDT CPT-08243 Abx/Therapy Injection 10:51:30 CDT CPT-J3301 Kenalog 40 mg (Triamcinolone Acetonide) 10:25:12 CDT CPT-J1100 Decadron 4mg (Dexamethasone) 10:25:12 CDT CPT-12562 Anoscopy diagnostic 10:36:12 CDT CPT-OV Office Visit 15:34:31 CDT CPT-06552 Abx/Therapy Injection 08:21:15 ICU RN CPT-J1885 Toradol 60 mg (Ketorolac) 10:46:35 ICU RN CPT-OV Office Visit 19:51:16 ICU RN CPT-24509 Spec Collection and Handling Fee 14:34:18 ICU RN CPT-PV Prev. Care Visit 14:19:18 ICU RN CPT-13896 Postop F/U Visit 14:47:51 ICU RN CPT-78575 Postop F/U Visit 15:15:14 ICU RN CPT-46606 Postop F/U Visit 14:41:43 CDT CPT-21284 Postop F/U Visit 15:47:46 CDT CPT-OV Office Visit 15:27:23 CDT CPT-OV Office Visit 17:20:34 CDT CPT-84023 Abx/Therapy Injection 15:05:57 CDT CPT-J1100 Decadron 8mg (Dexamethasone) 14:44:57 CDT CPT-J1040 Depo Medrol 80 mg (Methyl Prednisolone Acetate) 14:44: 57 CDT CPT-JTINJ Joint Injection 10:17:37 CDT CPT-10238 Administration 2+ single or combination vaccines inc oral 13:01:46 ICU RN CPT-03357 Administration single or combination vaccine inc oral 13 :01:46 ICU RN CPT-18716 Pneumovax 13:01:46 ICU RN CPT-33183 Influenza split virus > age 3 13:01:46 ICU RN CPT-00222 Administration single or combination vaccine inc oral 08 :56:49 CDT CPT-26298 Tdap 08:56:49 CDT
--- OUTSIDE RECORDS SUMMARY | 2017-03-21 21:40 | XMS REPORT | Clinical Summary ---
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 TRAZODONE HCL sees things Critical Active Dewayne [...] PhD Internal hemorrhoids with other complication POISON KUANL DERMATITIS 692.6 Resolved Yolande Lindsay MD PhD Contact dermatitis and other eczema due to plants [except food] ANGIOEDEMA 995.1 Resolved Yolande Lindsay MD PhD Angioneurotic edema, not elsewhere classified GERD 530.81 Resolved Yolande Lindsay MD PhD Esophageal reflux RECTAL BLEEDING 569.3 Resolved Yolande iLndsay MD PhD Hemorrhage of rectum and anus [...] in limb Tick bite 989.5 Resolved Yolande iLndsay MD PhD Toxic effect of venom URI [...] pill by mouth daily, for edema FUROSEMIDE 33083936147 No Longer Active Yolande Lindsay MD PhD Active FISH OIL 1000 MG CAPS 1 pill daily x 1 week, then 2 pills daily x 1 week, then 3 pills daily x 1 week, then 4 pills daily OMEGA-3 FATTY ACIDS 42213556547 Active Yolande Lindsay MD PhD Active NIACIN 500 MG TABS 1 pill by mouth nightly x 1 week, then 2 pills x 1 week, then 3 pills x 1 week, then 4 pills nightly - take after evening meal, with applesauce or an apple NIACIN 35276821207 Active Yolande Lindsay MD PhD Active ATORVASTATIN CALCIUM 10 MG TABS 1 pill by mouth daily, for cholesterol 09/06 ATORVASTATIN CALCIUM 50217824253 Active Yolande Lindsay MD PhD Active CALCIUM 600+D PLUS MINERALS 600-400 MG-UNIT ORAL CHEW 1 tab by mouth daily CALCIUM CARBONATE-VIT D-MIN 69176263280 No Longer Active Yolande Lindsay MD PhD Active CYCLOBENZAPRINE HCL 10 MG TABS 1 tablet by mouth three times daily as needed for muscle spasm/pain CYCLOBENZAPRINE HCL 30855999899 Active Yolande Lindsay MD PhD Active ONDANSETRON 4 MG TBDP 1 q4h PRN nausea ONDANSETRON 10231926720 Active Yolande Lindsay MD PhD Active ADULT ASPIRIN EC LOW STRENGTH 81 MG TBEC Take 1 tablet by mouth daily 2014 ASPIRIN 86596541904 No Longer Active Yolande Lindsay MD PhD Active ZOFRAN ODT 4 MG TBDP 1 pill dissolved by mouth every 4 hours if needed for nausea ONDANSETRON 78050280233 No Longer Active Yolande Lindsay MD PhD Active CEFTIN 500 MG TAB 1 twice a day CEFUROXIME AXETIL 43954997469 No Longer Active Yolande Lindsay MD PhD Active ALBUTEROL SULFATE 0.083 % NEBU SOLN one vial per nebulizer every 4-6 hours as needed ALBUTEROL SULFATE 27628753082 No Longer Active Alexis Ordaz MD Active DOXYCYCLINE HYCLATE 100 MG CAP 1 cap by mouth twice daily DOXYCYCLINE HYCLATE 69935934439 No Longer Active Yolande Lindsay MD PhD Active CYCLOBENZAPRINE HCL 10 MG TABS 1/2 - 1 tab by mouth three times daily if needed for spasms/pain CYCLOBENZAPRINE HCL 67978422823 No Longer Active Yolande Lindsay MD PhD Active TRILEPTAL 600 MG TABS Take one 1/2 tablet in Am and 1 tablet at night OXCARBAZEPINE 20115000334 Active Yolande Lindsay MD PhD Active AZITHROMYCIN 250 MG TABS 2 pills on day 1, then 1 pill daily x 4 days AZITHROMYCIN 78305352884 No Longer Active Yolande Lindsay MD PhD Active XOPENEX 1.25 MG/3ML NEBU 1 neb every 4 hours if needed for cough/congestion LEVALBUTEROL HCL 54092907353 No Longer Active Yolande Lindsay MD PhD Active DOXYCYCLINE HYCLATE 100 MG TAB 1 tab twice a day for 14 days 2013 DOXYCYCLINE HYCLATE 43412525011 No Longer Active Yolande Lindsay MD PhD Active LEVOTHYROXINE SODIUM 75 MCG TABS Take 1 tab daily LEVOTHYROXINE SODIUM 11119495320 Active Yolande Lindsay MD PhD Active PREVACID 30 MG CPDR Take 1 tablet by mouth daily-PRN LANSOPRAZOLE 67221852628 No Longer Active Yolande Lindsay MD PhD Active PA VITAMIN D-3 2000 UNIT CAPS 1 CAP PO DAILY CHOLECALCIFEROL 03397337650 No Longer Active Yolande Lindsay MD PhD Active CEFDINIR 300 MG CAPS by mouth twice a day CEFDINIR 30887616383 No Longer Active Gab Padron MD Active TOPAMAX 50 MG TABS 1 PO twice daily TOPIRAMATE 01845091060 Active Yolande Lindsay MD PhD Active AZITHROMYCIN 250 MG TABS 2 po qd x 1 day, then 1 po qd x 4 days AZITHROMYCIN 99382036796 No Longer Active Yolande Lindsay MD PhD Active DICLOFENAC SODIUM 75 MG TBEC 1 tablet by q 12 hours PRN headaches DICLOFENAC SODIUM 51279242231 No Longer Active Yolande Lindsay MD PhD Active FLONASE 50 MCG/ACT SUSP 1 spray each nostril am and hs FLUTICASONE PROPIONATE 00800598910 No Longer Active Todd Callaway MD Active ANUSOL-HC 25 MG SUPPOSITORY 1 rectally twice a day as needed for hemorrhoids HYDROCORTISONE JAYDEN (RECTAL) 92571239561 No Longer Active Yolande Lindsay MD PhD Active ANUSOL-HC 25 MG SUPPOSITORY 1 suppository rectally each evening as needed for anal fissure HYDROCORTISONE JAYDEN (RECTAL) 95739190647 No Longer Active LONNIE Iglesias Active VALIUM 5 MG TAB 1 po 30 minutes prior to your MRI DIAZEPAM 12276028778 No Longer Active LONNIE Iglesias Active METHOCARBAMOL 750 MG TABS 1 PO QID PRN METHOCARBAMOL 08844718399 No Longer Active Daphne Wetzel APRN Active NITROSTAT 0.4 MG SUBL as directed NITROGLYCERIN 68809818791 No Longer Active Rodrigo Sarah APRN Active ROBAXIN-750 750 MG TABS 2 four times a day for 3 days as needed for muscle spasm, then 1 four times a day as needed METHOCARBAMOL 09127303044 No Longer Active Rodrigo Sarah APRN Active HYDROCODONE-ACETAMINOPHEN 5-325 MG TABS 1 q 4-6 hrs prn HYDROCODONE-ACETAMINOPHEN 08881084822 No Longer Active Rodrigo Sarah APRN Active VERAPAMIL HCL CR 180 MG CR-TABS TAKE 1 TAB DAILY VERAPAMIL HCL 70166314404 No Longer Active Yolande Lindsay MD PhD Active BACTRIM DS 800-160 MG TAB 1 tab by mouth twice daily TRIMETHOPRIM-SULFAMETHOXAZOLE 52421134371 No Longer Active Yolande Lindsay MD PhD Active NEXIUM 40 MG PACK 1 by mouth daily ESOMEPRAZOLE MAGNESIUM 11585125572 No Longer Active Des Hines MD Active EPIPEN 2-CHARLETTE 0.3 MG/0.3ML OMARI as need for allergic reaction EPINEPHRINE 89945138663 Active Yolande Lindsay MD PhD Active LISINOPRIL 10 MG TABS 1 PO Q D FOR BP LISINOPRIL 73746726297 Active Yolande Lindsay MD PhD Active NEXIUM 40 MG CPDR 1 PO Q D DAY ESOMEPRAZOLE MAGNESIUM 20762946741 No Longer Active Sadia Perry MIGUEL Active NEXIUM 40 MG PACK 1 by mouth daily NEXIUM 40 MG PACK ESOMEPRAZOLE MAGNESIUM Inactive VERAPAMIL HCL CR 180 MG CR-TABS TAKE 1 TAB DAILY VERAPAMIL HCL CR 180 MG CR-TABS VERAPAMIL HCL Inactive HYDROCODONE-ACETAMINOPHEN 5-325 MG TABS 1 q 4-6 hrs prn HYDROCODONE-ACETAMINOPHEN 5-325 MG TABS 646476 HYDROCODONE-ACETAMINOPHEN Inactive ROBAXIN-750 750 MG TABS 2 four times a day for 3 days as needed for muscle spasm, then 1 four times a day as needed ROBAXIN-750 750 MG TABS 389767 METHOCARBAMOL Inactive NITROSTAT 0.4 MG SUBL as directed NITROSTAT 0.4 MG SUBL NITROGLYCERIN Inactive METHOCARBAMOL 750 MG TABS 1 PO QID PRN METHOCARBAMOL 750 MG TABS 470285 METHOCARBAMOL Inactive VALIUM 5 MG TAB 1 po 30 minutes prior to your MRI VALIUM 5 MG TAB 841826 DIAZEPAM Inactive ANUSOL-HC 25 MG SUPPOSITORY 1 suppository rectally each evening as needed for anal fissure ANUSOL-HC 25 MG SUPPOSITORY 3593697 HYDROCORTISONE JAYDEN (RECTAL) Inactive ANUSOL-HC 25 MG SUPPOSITORY 1 rectally twice a day as needed for hemorrhoids ANUSOL-HC 25 MG SUPPOSITORY 4712731 HYDROCORTISONE JAYDEN (RECTAL) Inactive FLONASE 50 MCG/ACT SUSP 1 spray each nostril am and hs FLONASE 50 MCG/ACT SUSP 500593 FLUTICASONE PROPIONATE Inactive DICLOFENAC SODIUM 75 MG TBEC 1 tablet by q 12 hours PRN headaches DICLOFENAC SODIUM 75 MG TBEC 377019 DICLOFENAC SODIUM Inactive PA VITAMIN D-3 2000 UNIT CAPS 1 CAP PO DAILY PA VITAMIN D-3 2000 UNIT CAPS CHOLECALCIFEROL Inactive PREVACID 30 MG CPDR Take 1 tablet by mouth daily-PRN PREVACID 30 MG CPDR 454745 LANSOPRAZOLE Inactive DOXYCYCLINE HYCLATE 100 MG TAB 1 tab twice a day for 14 days 2013 DOXYCYCLINE HYCLATE 100 MG TAB 392210 DOXYCYCLINE HYCLATE Inactive XOPENEX 1.25 MG/3ML NEBU 1 neb every 4 hours if needed for cough/congestion XOPENEX 1.25 MG/3ML NEBU 557619 LEVALBUTEROL HCL Inactive CYCLOBENZAPRINE HCL 10 MG TABS 1/2 - 1 tab by mouth three times daily if needed for spasms/pain CYCLOBENZAPRINE HCL 10 MG TABS 241357 CYCLOBENZAPRINE HCL Inactive ALBUTEROL SULFATE 0.083 % NEBU SOLN one vial per nebulizer every 4-6 hours as needed ALBUTEROL SULFATE 0.083 % NEBU SOLN 798394 ALBUTEROL SULFATE Inactive CEFTIN 500 MG TAB 1 twice a day CEFTIN 500 MG TAB 766392 CEFUROXIME AXETIL Inactive ZOFRAN ODT 4 MG TBDP 1 pill dissolved by mouth every 4 hours if needed for nausea ZOFRAN ODT 4 MG TBDP 504640 ONDANSETRON Inactive ADULT ASPIRIN EC LOW STRENGTH 81 MG TBEC Take 1 tablet by mouth daily 2014 ADULT ASPIRIN EC LOW STRENGTH 81 MG TBEC 968275 ASPIRIN Inactive CALCIUM 600+D PLUS MINERALS 600-400 [...] x 4 days AZITHROMYCIN 250 MG TABS 8109860 AZITHROMYCIN Inactive CEFDINIR 300 MG CAPS by mouth twice a day CEFDINIR 300 MG CAPS 916390 CEFDINIR Inactive AZITHROMYCIN 250 MG TABS 2 pills on day 1, then 1 pill daily x 4 days AZITHROMYCIN 250 MG TABS 2727274 AZITHROMYCIN Inactive DOXYCYCLINE HYCLATE 100 MG CAP 1 cap by mouth twice daily DOXYCYCLINE HYCLATE 100 MG CAP 0294841 DOXYCYCLINE HYCLATE Inactive FUROSEMIDE 20 MG TABS 1 pill by mouth daily, for edema FUROSEMIDE 20 MG TABS 816341 FUROSEMIDE Inactive Immunizations Vaccine Administration Date Value Standard Description Seasonal influenza vaccine, injectable, containing preservative, for > 3 years old (Afluria, FluLaval, Fluzone, Fluvirin, Fluarix, Agriflu(>=18 yo)) Fluzone (>3 yrs.) [OZO911] Influenza, seasonal, injectable influenza immunization (Flu Vax) has been administered Influenza - Unspecified Formulation [CVX88] influenza virus vaccine, unspecified formulation pneumococcal immunization administered Pneumovax 23 [CVX33] pneumococcal polysaccharide vaccine, 23 valent Seasonal influenza vaccine, injectable, containing preservative, for > 3 years old (Afluria, FluLaval, Fluzone, Fluvirin, Fluarix, Agriflu(>=18 yo)) Fluzone (>3 yrs.) [LLZ945] Influenza, seasonal, injectable dT (Diphtheria and Tetanus) booster given given Td(adult) unspecified formulation Boostrix (Tetanus toxoid, reduced diphtheria toxoid and acellular pertussis vaccine, adsorbed), booster Boostrix [XFE983] tetanus toxoid, reduced diphtheria toxoid, and acellular [...] Panel - Chemistry sodium, serum 145 mmol/L 743-927 9727/06/22 potassium, serum 3.9 mmol/L 3.5-5.2 chloride, serum 109 mmol/L 98-107 carbon dioxide, venous blood 23.4 mmol/L 21.0-32.0 blood glucose 92 mg/dL 65-110 calcium, serum 8.2 mg/dL 8.5-10.1 urea nitrogen, blood 24 mg/dL 7-18 creatinine, serum 1.30 mg/dL 0.60-1.30 Lab Report: [facility] Advanced Lipid and Inlammation Panel /29778 - Chemistry cholesterol, serum 198 mg/dL [phone]/04/30 HDL cholesterol, serum 65 mg/dL > OR=46 triglyceride, serum, fasting 82 mg/dL LDL cholesterol, serum 117 mg/dL cholesterol/HDL ratio, serum 3.0 calc < OR=5.0 Lab Report: CBC W/DIFF, Basic Metabolic Panel - Chemistry sodium, serum 144 mmol/L 967-255 3901/01/21 potassium, serum 4.2 mmol/L 3.5-5.2 chloride, serum [...] Panel - Chemistry sodium, serum 144 mmol/L 800-387 0627/12/15 potassium, serum 5.4 mmol/L 3.5-5.2 chloride, serum [...] UA - Chemistry sodium, serum 143 mmol/L 107-619 7268/10/24 potassium, serum 3.9 mmol/L 3.5-5.2 chloride, serum [...] 51 mg/dL 30-200 cholesterol, serum 173 mg/dL 066-088 7704/04/28 HDL cholesterol, serum 63 mg/dL 32-96 LDL [...] 0-19 Encounters Code Encounter Date Provider Facility CPT-74749 Level 4 Est. Patient 21:29:26 CDT [facility] CPT-58233 Level 3 Est. Patient 07:37:45 CDT [facility] CPT-99254 Level 3 Est. Patient 17:03:46 CDT [facility] CPT-04605 Level 4 Est. 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 Patient 16:02:07 NATIONAL SALES EXECUTIVE Alexis Ordaz MD [facility] CPT-30798 Level 3 Est. Patient 12:41:24 NATIONAL SALES EXECUTIVE Yolande Lindsay MD PhD [facility]-46700 Level 3 Est. Patient 15:41:20 NATIONAL SALES EXECUTIVE Yolande Lindsay MD [facility]-99796 Level 3 Est. Patient 13:20:02 NATIONAL SALES EXECUTIVE Yolande Lindsay MD [facility]-23911 Level 3 Est. Patient 15:00:38 CDT Jared Og MD [facility]-81871 Level 3 Est. Patient 10:22:32 CDT Yolande Lindsay MD [facility]-91177 Level 3 Est. Patient 17:12:58 CDT Yolande Lindsay MD [facility]-29439 Level 4 Est. Patient 13:30:58 CDT Yolande Lindsay MD [facility]-68467 Level 4 New Patient 09:02:42 CDT Jared Og MD [facility]-38867 Level 3 Est. Patient 08:19:07 CDT Yolande Lindsay MD [facility]-80320 Level 3 Est. Patient 12:00:13 NATIONAL SALES EXECUTIVE Gab Padron MD [facility]-12388 Level 3 Est. Patient 16:15:23 NATIONAL SALES EXECUTIVE Yolande Lindsay MD [facility] CPT-51740 Level 2 Est. Patient 19:47:15 CDT Yolande Lindsay MD [facility]-03220 Level 3 Est. Patient 21:38:31 CDT Yolande Lindsay MD [facility]-77524 Level 3 Est. Patient 10:25:12 CDT Adiel PERAZA [facility]-46889 Level 4 Est. Patient 10:51:58 CDT Yolande Lindsay MD [facility]-35080 Level 3 Est. Patient 14:04:55 NATIONAL SALES EXECUTIVE Rodrigo Sarah [facility] CPT-69585 Level 3 Est. Patient 10:46:35 NATIONAL SALES EXECUTIVE Rodrigo Sarah [facility] CPT-70558 Level 3 Est. Patient 14:24:37 NATIONAL SALES EXECUTIVE Yolande Lindsay MD [facility] CPT-41146 Level 3 Est. Patient 17:41:58 NATIONAL SALES EXECUTIVE Yolande Lindsay MD [facility] CPT-40460 Level 2 Est. Patient 22:01:41 NATIONAL SALES EXECUTIVE Rodrigo Sarah [facility] CPT-20283 Level 2 Est. Patient 22:01:11 NATIONAL SALES EXECUTIVE Rodrigo Sarah [facility] CPT-03472 Level 3 Est. Patient 10:12:29 NATIONAL SALES EXECUTIVE Rodrigo Sarah [facility] CPT-69873 Level 3 Est. Patient 11:05:44 CDT Alexis Ordaz MD [facility] CPT-71146 Level 3 Est. Patient 14:57:20 CDT Yolande Lindsay MD [facility] CPT-04371 Level 3 Est. Patient 14:40:57 CDT Yolande Lindsay MD [facility] CPT-96500 Level 3 Est. Patient 20:55:40 CDT Yolande Lindsay MD [facility] CPT-23370 Level 3 Est. Patient 12:42:38 NATIONAL SALES EXECUTIVE Yolande Lindsay MD [facility] CPT-98532 Level 3 Est. Patient 11:54:49 NATIONAL SALES EXECUTIVE Des Hines MD [facility] CPT-95041 Level 3 Est. Patient 17:06:38 CDT Dewayne PERAZA [facility] Procedures Code Procedure Name Date Entry Date Standard Description [id number] Event Monitor - MC Transmission 09:12:32 CDT 08/06 [id number] Event Monitor - MC review and interp 09:12:32 CDT [id number] Event Monitor - MC recording 09:12:32 CDT CPT-28582 EKG Trac and Interp 16:50:22 CDT CPT-J1030 Depo Medrol 40 mg (Methyl Prednisolone Acetate) 17:05: 54 CDT CPT-J1100 Decadron 4mg (Dexamethasone) 17:05:54 CDT CPT-85433 Abx/Therapy Injection 17:05:54 CDT CPT-J1100 Decadron 4mg (Dexamethasone) 16:55:28 CDT CPT-J1030 Depo Medrol 40 mg (Methyl Prednisolone Acetate) 16:55: 28 CDT CPT-35928 Ankle Complete - Min 3V 15:58:50 CDT CPT-54977 Knee 3V 15:58:50 CDT CPT-75479 Hip comp min 2V 15:58:50 CDT CPT-J2270 Morphine Sulfate 10 mg 14:25:44 NATIONAL SALES EXECUTIVE CPT-J2550 Phenergan 12.5 mg (Promethazine) 14:25:44 NATIONAL SALES EXECUTIVE CPT-53560 Abx/Therapy Injection 14:25:44 NATIONAL SALES EXECUTIVE CPT-J2550 Phenergan 12.5 mg (Promethazine) 14:08:03 NATIONAL SALES EXECUTIVE CPT-J2270 Morphine Sulfate 10 mg 14:08:03 NATIONAL SALES EXECUTIVE CPT-06932 Bladder Scan 15:00:38 CDT CPT-TCMM Transitional Care Mgmt-Moderate 09:52:22 CDT CPT-J1030 Depo Medrol 40 mg (Methyl Prednisolone Acetate) 10:55: 18 CDT CPT-J1100 Decadron 4mg (Dexamethasone) 10:55:18 CDT CPT-04804 Abx/Therapy Injection 10:55:18 CDT CPT-J1030 Depo Medrol 40 mg (Methyl Prednisolone Acetate) 10:22: 32 CDT CPT-J1100 Decadron 4mg (Dexamethasone) 10:22:32 CDT CPT-06545 Postop F/U Visit 14:37:13 CDT CPT-62526 Ankle Complete - Min 3V 17:11:58 CDT CPT-08867 Foot comp min 3V 17:11:58 CDT CPT-03694 Bladder Scan 09:56:58 CDT CPT-99538 Postop F/U Visit 09:56:58 CDT CPT-78491 Cystoscopy 09:02:42 CDT CPT-44359 Bladder Scan 09:02:42 CDT CPT-72032 Abd single AP View 16:00:35 CDT CPT-30258 Administration single or combination vaccine inc oral 10 :15:43 CDT CPT-84917 Influenza split virus > age 3 10:15:43 CDT CPT-16342 Nail Avulsion 09:24:57 CDT CPT-OV Office Visit 11:15:41 CDT CPT-65668 Abx/Therapy Injection 10:51:30 CDT CPT-J3301 Kenalog 40 mg (Triamcinolone Acetonide) 10:25:12 CDT CPT-J1100 Decadron 4mg (Dexamethasone) 10:25:12 CDT CPT-12736 Anoscopy diagnostic 10:36:12 CDT CPT-OV Office Visit 15:34:31 CDT CPT-57895 Abx/Therapy Injection 08:21:15 NATIONAL SALES EXECUTIVE CPT-J1885 Toradol 60 mg (Ketorolac) 10:46:35 NATIONAL SALES EXECUTIVE CPT-OV Office Visit 19:51:16 NATIONAL SALES EXECUTIVE CPT-89440 Spec Collection and Handling Fee 14:34:18 NATIONAL SALES EXECUTIVE CPT-PV Prev. Care Visit 14:19:18 NATIONAL SALES EXECUTIVE CPT-16661 Postop F/U Visit 14:47:51 NATIONAL SALES EXECUTIVE CPT-38015 Postop F/U Visit 15:15:14 NATIONAL SALES EXECUTIVE CPT-56928 Postop F/U Visit 14:41:43 CDT CPT-40384 Postop F/U Visit 15:47:46 CDT CPT-OV Office Visit 15:27:23 CDT CPT-OV Office Visit 17:20:34 CDT CPT-29695 Abx/Therapy Injection 15:05:57 CDT CPT-J1100 Decadron 8mg (Dexamethasone) 14:44:57 CDT CPT-J1040 Depo Medrol 80 mg (Methyl Prednisolone Acetate) 14:44: 57 CDT CPT-JTINJ Joint Injection 10:17:37 CDT CPT-29346 Administration 2+ single or combination vaccines inc oral 13:01:46 NATIONAL SALES EXECUTIVE CPT-66440 Administration single or combination vaccine inc oral 13 :01:46 NATIONAL SALES EXECUTIVE CPT-48592 Pneumovax 13:01:46 NATIONAL SALES EXECUTIVE CPT-95692 Influenza split virus > age 3 13:01:46 NATIONAL SALES EXECUTIVE CPT-48582 Administration single or combination vaccine inc oral 08 :56:49 CDT CPT-18206 Tdap 08:56:49 CDT
--- OUTSIDE RECORDS SUMMARY | 2017-03-21 21:41 | XMS REPORT | Clinical Summary ---
Author Author Admin, MARGRET Organization 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 TRAZODONE HCL sees things Critical Active [...] Asthma, unspecified Flank pain 789.09 Active Yolande iLndsay MD PhD Abdominal pain, other specified site; [...] hx of 412 Active Hoa Otto [facility] Old myocardial infarction FOOT PAIN, RIGHT [...] Generic Name NDC Status Provider Patient Instruction CYCLOBENZAPRINE HCL 10 MG TABS 1 tablet by mouth three times daily as needed for muscle spasm/pain CYCLOBENZAPRINE HCL 60246073240 Active Yolande Lindsay MD PhD Active CALCIUM 600+D PLUS MINERALS 600-400 MG-UNIT ORAL CHEW 1 tab by mouth daily CALCIUM CARBONATE-VIT D-MIN 51553837318 Active Yolande Lindsay MD PhD Active ONDANSETRON 4 MG TBDP 1 q4h PRN nausea ONDANSETRON 68868105408 Active Yolande Lindsay MD PhD Active ADULT ASPIRIN EC LOW STRENGTH 81 MG TBEC Take 1 tablet by mouth daily 2014 ASPIRIN 25355006478 No Longer Active Yolande Lindsay MD PhD Active ZOFRAN ODT 4 MG TBDP 1 pill dissolved by mouth every 4 hours if needed for nausea ONDANSETRON 86001299849 No Longer Active Yolande Lindsay MD PhD Active CEFTIN 500 MG TAB 1 twice a day CEFUROXIME AXETIL 74309947447 No Longer Active Yolande Lindsay MD PhD Active ALBUTEROL SULFATE 0.083 % NEBU SOLN one vial per nebulizer every 4-6 hours as needed ALBUTEROL SULFATE 41303271893 No Longer Active Alexis Ordaz MD Active DOXYCYCLINE HYCLATE 100 MG CAP 1 cap by mouth twice daily DOXYCYCLINE HYCLATE 04689809564 No Longer Active Yolande Lindsay MD PhD Active CYCLOBENZAPRINE HCL 10 MG TABS 1/2 - 1 tab by mouth three times daily if needed for spasms/pain CYCLOBENZAPRINE HCL 03750802704 No Longer Active Yolande Lindsay MD PhD Active TRILEPTAL 600 MG TABS Take one 1/2 tablet in Am and 1 tablet at night OXCARBAZEPINE 92272072669 Active Yolande Lindsay MD PhD Active AZITHROMYCIN 250 MG TABS 2 pills on day 1, then 1 pill daily x 4 days AZITHROMYCIN 48645175867 No Longer Active Yolande Lindsay MD PhD Active XOPENEX 1.25 MG/3ML NEBU 1 neb every 4 hours if needed for cough/congestion LEVALBUTEROL HCL 59287612506 No Longer Active Yolande Lindsay MD PhD Active DOXYCYCLINE HYCLATE 100 MG TAB 1 tab twice a day for 14 days 2013 DOXYCYCLINE HYCLATE 38588814627 No Longer Active Yolande Lindsay MD PhD Active LEVOTHYROXINE SODIUM 75 MCG TABS Take 1 tab daily LEVOTHYROXINE SODIUM 09979625162 Active Yolande Lindsay MD PhD Active PREVACID 30 MG CPDR Take 1 tablet by mouth daily-PRN LANSOPRAZOLE 90500130473 No Longer Active Yolande Lindsay MD PhD Active PA VITAMIN D-3 2000 UNIT CAPS 1 CAP PO DAILY CHOLECALCIFEROL 49444551390 No Longer Active Yolande Lindsay MD PhD Active CEFDINIR 300 MG CAPS by mouth twice a day CEFDINIR 40102288208 No Longer Active Gab Padron MD Active TOPAMAX 50 MG TABS 1 PO twice daily TOPIRAMATE 47588537992 Active Yolande Lindsay MD PhD Active AZITHROMYCIN 250 MG TABS 2 po qd x 1 day, then 1 po qd x 4 days AZITHROMYCIN 33770636307 No Longer Active Yolande Lindsay MD PhD Active DICLOFENAC SODIUM 75 MG TBEC 1 tablet by q 12 hours PRN headaches DICLOFENAC SODIUM 86235631672 No Longer Active Yolande Lindsay MD PhD Active FLONASE 50 MCG/ACT SUSP 1 spray each nostril am and hs FLUTICASONE PROPIONATE 05270688691 No Longer Active Todd Callaway MD Active ANUSOL-HC 25 MG SUPPOSITORY 1 rectally twice a day as needed for hemorrhoids HYDROCORTISONE JAYDEN (RECTAL) 93086211278 No Longer Active Yolande Lindsay MD PhD Active ANUSOL-HC 25 MG SUPPOSITORY 1 suppository rectally each evening as needed for anal fissure HYDROCORTISONE JAYDEN (RECTAL) 94843491126 No Longer Active LONNIE Iglesias Active VALIUM 5 MG TAB 1 po 30 minutes prior to your MRI DIAZEPAM 35708889316 No Longer Active LONNIE Iglesias Active METHOCARBAMOL 750 MG TABS 1 PO QID PRN METHOCARBAMOL 92027346648 No Longer Active Daphne Wetzel APRN Active NITROSTAT 0.4 MG SUBL as directed NITROGLYCERIN 63567418446 No Longer Active Rodrigo Sarah APRN Active ROBAXIN-750 750 MG TABS 2 four times a day for 3 days as needed for muscle spasm, then 1 four times a day as needed METHOCARBAMOL 02554485335 No Longer Active Rodrigo Saarh APRN Active HYDROCODONE-ACETAMINOPHEN 5-325 MG TABS 1 q 4-6 hrs prn HYDROCODONE-ACETAMINOPHEN 33446863300 No Longer Active Rodrigo Sarah APRN Active VERAPAMIL HCL CR 180 MG CR-TABS TAKE 1 TAB DAILY VERAPAMIL HCL 99687825608 No Longer Active Yolande Lindsay MD PhD Active BACTRIM DS 800-160 MG TAB 1 tab by mouth twice daily TRIMETHOPRIM-SULFAMETHOXAZOLE 63809000923 No Longer Active Yolande Lindsay MD PhD Active NEXIUM 40 MG PACK 1 by mouth daily ESOMEPRAZOLE MAGNESIUM 89300612979 No Longer Active Des Hines MD Active EPIPEN 2-CHARLETTE 0.3 MG/0.3ML OMARI as need for allergic reaction EPINEPHRINE 08983323357 Active Yolande Lindsay MD PhD Active LISINOPRIL 10 MG TABS 1 PO Q D FOR BP LISINOPRIL 50713669586 Active Yolande Lindsay MD PhD Active NEXIUM 40 MG CPDR 1 PO Q D DAY ESOMEPRAZOLE MAGNESIUM 06334494775 No Longer Active Sadia [place] RIVERA Active NEXIUM 40 MG PACK 1 by mouth daily NEXIUM 40 MG PACK ESOMEPRAZOLE MAGNESIUM Inactive VERAPAMIL HCL CR 180 MG CR-TABS TAKE 1 TAB DAILY VERAPAMIL HCL CR 180 MG CR-TABS VERAPAMIL HCL Inactive HYDROCODONE-ACETAMINOPHEN 5-325 MG TABS 1 q 4-6 hrs prn HYDROCODONE-ACETAMINOPHEN 5-325 MG TABS 636098 HYDROCODONE-ACETAMINOPHEN Inactive ROBAXIN-750 750 MG TABS 2 four times a day for 3 days as needed for muscle spasm, then 1 four times a day as needed ROBAXIN-750 750 MG TABS 835707 METHOCARBAMOL Inactive NITROSTAT 0.4 MG SUBL as directed NITROSTAT 0.4 MG SUBL NITROGLYCERIN Inactive METHOCARBAMOL 750 MG TABS 1 PO QID PRN METHOCARBAMOL 750 MG TABS 907301 METHOCARBAMOL Inactive VALIUM 5 MG TAB 1 po 30 minutes prior to your MRI VALIUM 5 MG TAB 059173 DIAZEPAM Inactive ANUSOL-HC 25 MG SUPPOSITORY 1 suppository rectally each evening as needed for anal fissure ANUSOL-HC 25 MG SUPPOSITORY 7086063 HYDROCORTISONE JAYDEN (RECTAL) Inactive ANUSOL-HC 25 MG SUPPOSITORY 1 rectally twice a day as needed for hemorrhoids ANUSOL-HC 25 MG SUPPOSITORY 2759620 HYDROCORTISONE JAYDEN (RECTAL) Inactive FLONASE 50 MCG/ACT SUSP 1 spray each nostril am and hs FLONASE 50 MCG/ACT SUSP 656808 FLUTICASONE PROPIONATE Inactive DICLOFENAC SODIUM 75 MG TBEC 1 tablet by q 12 hours PRN headaches DICLOFENAC SODIUM 75 MG TBEC 422553 DICLOFENAC SODIUM Inactive PA VITAMIN D-3 2000 UNIT CAPS 1 CAP PO DAILY PA VITAMIN D-3 2000 UNIT CAPS CHOLECALCIFEROL Inactive PREVACID 30 MG CPDR Take 1 tablet by mouth daily-PRN PREVACID 30 MG CPDR 971022 LANSOPRAZOLE Inactive DOXYCYCLINE HYCLATE 100 MG TAB 1 tab twice a day for 14 days 2013 DOXYCYCLINE HYCLATE 100 MG TAB 325339 DOXYCYCLINE HYCLATE Inactive XOPENEX 1.25 MG/3ML NEBU 1 neb every 4 hours if needed for cough/congestion XOPENEX 1.25 MG/3ML NEBU LEVALBUTEROL HCL Inactive CYCLOBENZAPRINE HCL 10 MG TABS 1/2 - 1 tab by mouth three times daily if needed for spasms/pain CYCLOBENZAPRINE HCL 10 MG TABS 485810 CYCLOBENZAPRINE HCL Inactive ALBUTEROL SULFATE 0.083 % NEBU SOLN one vial per nebulizer every 4-6 hours as needed ALBUTEROL SULFATE 0.083 % NEBU SOLN 405778 ALBUTEROL SULFATE Inactive CEFTIN 500 MG TAB 1 twice a day CEFTIN 500 MG TAB 932332 CEFUROXIME AXETIL Inactive ZOFRAN ODT 4 MG TBDP 1 pill dissolved by mouth every 4 hours if needed for nausea ZOFRAN ODT 4 MG TBDP 571564 ONDANSETRON Inactive ADULT ASPIRIN EC LOW STRENGTH 81 MG TBEC Take 1 tablet by mouth daily 2014 ADULT ASPIRIN EC LOW STRENGTH 81 MG TBEC 387341 ASPIRIN Inactive BACTRIM DS 800-160 MG TAB 1 tab by mouth twice daily BACTRIM DS 800-160 MG TAB TRIMETHOPRIM-SULFAMETHOXAZOLE Inactive AZITHROMYCIN 250 MG TABS 2 po qd x 1 day, then 1 po qd x 4 days AZITHROMYCIN 250 MG TABS 6045286 AZITHROMYCIN Inactive CEFDINIR 300 MG CAPS by mouth twice a day CEFDINIR 300 MG CAPS 20020708 CEFDINIR Inactive AZITHROMYCIN 250 MG TABS 2 pills on day 1, then 1 pill daily x 4 days AZITHROMYCIN 250 MG TABS 6242303 AZITHROMYCIN Inactive DOXYCYCLINE HYCLATE 100 MG CAP 1 cap by mouth twice daily DOXYCYCLINE HYCLATE 100 MG CAP 19890510 DOXYCYCLINE HYCLATE Inactive Immunizations Vaccine Administration Date Value Standard Description Seasonal influenza vaccine, injectable, containing preservative, for > 3 years old (Afluria, FluLaval, Fluzone, Fluvirin, Fluarix, Agriflu(>=18 yo)) Fluzone (>3 yrs.) [UIQ105] Influenza, seasonal, injectable influenza immunization (Flu Vax) has been administered Influenza - Unspecified Formulation [CVX88] influenza virus vaccine, unspecified formulation Seasonal influenza vaccine, injectable, containing preservative, for > 3 years old (Afluria, FluLaval, Fluzone, Fluvirin, Fluarix, Agriflu(>=18 yo)) Fluzone (>3 yrs.) [EPU692] Influenza, seasonal, injectable pneumococcal immunization administered Pneumovax 23 [CVX33] pneumococcal polysaccharide vaccine, 23 valent dT (Diphtheria and Tetanus) booster given given Td(adult) unspecified formulation Boostrix (Tetanus toxoid, reduced diphtheria toxoid and acellular pertussis vaccine, adsorbed), booster Boostrix [SHT587] tetanus toxoid, reduced diphtheria toxoid, and acellular [...] Cardio IQ Advanced Lipid and Inlammation Panel /97002 - Chemistry cholesterol, serum 198 mg/dL 871-127 7206/04/30 HDL cholesterol, serum 65 mg/dL > OR=46 triglyceride, serum, fasting 82 mg/dL LDL cholesterol, serum 117 mg/dL cholesterol/HDL ratio, serum 3.0 calc < OR=5.0 Lab Report: CBC W/DIFF, Basic Metabolic Panel - Chemistry sodium, serum 144 mmol/L 599-759 1896/01/21 potassium, serum 4.2 mmol/L 3.5-5.2 chloride, serum [...] Panel - Chemistry sodium, serum 144 mmol/L 004-456 1148/12/15 potassium, serum 5.4 mmol/L 3.5-5.2 chloride, serum [...] UA - Chemistry sodium, serum 143 mmol/L 820-933 9355/10/24 potassium, serum 3.9 mmol/L 3.5-5.2 chloride, serum [...] 51 mg/dL 30-200 cholesterol, serum 173 mg/dL 735-149 7128/04/28 HDL cholesterol, serum 63 mg/dL 32-96 LDL [...] 0-19 Encounters Code Encounter Date Provider Facility CPT-73083 Level 3 Est. Patient 07:37:45 CDT Yolande Lindsay MD PhD [facility] CPT-24576 Level 3 Est. Patient 17:03:46 CDT Yolande Lindsay MD [facility] CPT-31185 Level 4 Est. Patient 20:02:13 MARKETING INTERN Yolande Lindsay MD PhD [facility] CPT-82984 Level 3 Est. Patient 16:02:07 MARKETING INTERN Alexis Ordaz MD [facility] CPT-63123 Level 3 Est. Patient 12:41:24 MARKETING INTERN Yolande Lindsay MD PhD [facility] CPT-21033 Level 3 Est. Patient 15:41:20 MARKETING INTERN Yolande Lindsay MD [facility] CPT-30339 Level 3 Est. Patient 13:20:02 MARKETING INTERN Yolande iLndsay MD [facility] CPT-54962 Level 3 Est. Patient 15:00:38 CDT Jared Og MD [facility]-32333 Level 3 Est. Patient 10:22:32 CDT Yloande Lindsay MD PhD [facility] CPT-12543 Level 3 Est. Patient 17:12:58 CDT Yolande Linsday MD [facility]-51076 Level 4 Est. Patient 13:30:58 CDT Yolande Lindsay MD PhD [facility] [place][note 2]-44365 Level 4 New Patient 09:02:42 CDT Jared Og MD [facility]-95361 Level 3 Est. Patient 08:19:07 CDT Yolande Lindsay MD [facility]-26761 Level 3 Est. Patient 12:00:13 MARKETING INTERN Gab Padron MD [facility] [place][note 2]-80459 Level 3 Est. Patient 16:15:23 MARKETING INTERN Yolande Lindsay MD [facility]-41018 Level 2 Est. Patient 19:47:15 CDT Yolande Lindsay MD [facility]-90380 Level 3 Est. Patient 21:38:31 CDT Yolande Lindsay MD [facility]-71143 Level 3 Est. Patient 10:25:12 CDT Adiel PERAZA [facility] CPT-46217 Level 4 Est. Patient 10:51:58 CDT Yolande Lindsay MD [facility]-49924 Level 3 Est. Patient 14:04:55 MARKETING INTERN Rodrigo Sarah [facility]-88176 Level 3 Est. Patient 10:46:35 MARKETING INTERN Rodrigo Sarah [facility]-46120 Level 3 Est. Patient 14:24:37 MARKETING INTERN Yolande Lindsay MD [facility]-08493 Level 3 Est. Patient 17:41:58 MARKETING INTERN Yolande Lindsay MD [facility]-29022 Level 2 Est. Patient 22:01:41 MARKETING INTERN Rodrigo Sarah [facility]-45981 Level 2 Est. Patient 22:01:11 MARKETING INTERN Rodrigo Sarah [facility] CPT-74673 Level 3 Est. Patient 10:12:29 MARKETING INTERN Rodrigo Sarah [facility] CPT-94695 Level 3 Est. Patient 11:05:44 CDT Alexis Ordaz MD [facility] CPT-47202 Level 3 Est. Patient 14:57:20 CDT Yolande Lindsay MD [facility] CPT-27587 Level 3 Est. Patient 14:40:57 CDT Yolande Lindsay MD [facility] CPT-40574 Level 3 Est. Patient 20:55:40 CDT Yolande Lindsay MD [facility] CPT-41700 Level 3 Est. Patient 12:42:38 MARKETING INTERN Yolande Lindsay MD [facility] CPT-14641 Level 3 Est. Patient 11:54:49 MARKETING INTERN Des Hines MD [facility] CPT-68211 Level 3 Est. Patient 17:06:38 CDT Dewayne PERAZA [facility] Procedures Code Procedure Name Date Entry Date Standard Description [id number] Event Monitor - MC Transmission 09:12:32 CDT 08/06 [id number] Event Monitor - MC review and interp 09:12:32 CDT [id number] Event Monitor - MC recording 09:12:32 CDT CPT-86191 EKG Trac and Interp 16:50:22 CDT CPT-J1030 Depo Medrol 40 mg (Methyl Prednisolone Acetate) 17:05: 54 CDT CPT-J1100 Decadron 4mg (Dexamethasone) 17:05:54 CDT CPT-55446 Abx/Therapy Injection 17:05:54 CDT CPT-J1100 Decadron 4mg (Dexamethasone) 16:55:28 CDT CPT-J1030 Depo Medrol 40 mg (Methyl Prednisolone Acetate) 16:55: 28 CDT CPT-97613 Ankle Complete - Min 3V 15:58:50 CDT CPT-90091 Knee 3V 15:58:50 CDT CPT-65227 Hip comp min 2V 15:58:50 CDT CPT-J2270 Morphine Sulfate 10 mg 14:25:44 MARKETING INTERN CPT-J2550 Phenergan 12.5 mg (Promethazine) 14:25:44 MARKETING INTERN CPT-88663 Abx/Therapy Injection 14:25:44 MARKETING INTERN CPT-J2550 Phenergan 12.5 mg (Promethazine) 14:08:03 MARKETING INTERN CPT-J2270 Morphine Sulfate 10 mg 14:08:03 MARKETING INTERN CPT-37060 Bladder Scan 15:00:38 CDT CPT-TCMM Transitional Care Mgmt-Moderate 09:52:22 CDT CPT-J1030 Depo Medrol 40 mg (Methyl Prednisolone Acetate) 10:55: 18 CDT CPT-J1100 Decadron 4mg (Dexamethasone) 10:55:18 CDT CPT-41276 Abx/Therapy Injection 10:55:18 CDT CPT-J1030 Depo Medrol 40 mg (Methyl Prednisolone Acetate) 10:22: 32 CDT CPT-J1100 Decadron 4mg (Dexamethasone) 10:22:32 CDT CPT-57036 Postop F/U Visit 14:37:13 CDT CPT-29244 Ankle Complete - Min 3V 17:11:58 CDT CPT-92995 Foot comp min 3V 17:11:58 CDT CPT-70713 Bladder Scan 09:56:58 CDT CPT-62198 Postop F/U Visit 09:56:58 CDT CPT-78273 Cystoscopy 09:02:42 CDT CPT-29381 Bladder Scan 09:02:42 CDT CPT-89226 Abd single AP View 16:00:35 CDT CPT-02102 Administration single or combination vaccine inc oral 10 :15:43 CDT CPT-78496 Influenza split virus > age 3 10:15:43 CDT CPT-46218 Nail Avulsion 09:24:57 CDT CPT-OV Office Visit 11:15:41 CDT CPT-98462 Abx/Therapy Injection 10:51:30 CDT CPT-J3301 Kenalog 40 mg (Triamcinolone Acetonide) 10:25:12 CDT CPT-J1100 Decadron 4mg (Dexamethasone) 10:25:12 CDT CPT-98657 Anoscopy diagnostic 10:36:12 CDT CPT-OV Office Visit 15:34:31 CDT CPT-84761 Abx/Therapy Injection 08:21:15 MARKETING INTERN CPT-J1885 Toradol 60 mg (Ketorolac) 10:46:35 MARKETING INTERN CPT-OV Office Visit 19:51:16 MARKETING INTERN CPT-73776 Spec Collection and Handling Fee 14:34:18 MARKETING INTERN CPT-PV Prev. Care Visit 14:19:18 MARKETING INTERN CPT-62275 Postop F/U Visit 14:47:51 MARKETING INTERN CPT-70391 Postop F/U Visit 15:15:14 MARKETING INTERN CPT-92967 Postop F/U Visit 14:41:43 CDT CPT-55682 Postop F/U Visit 15:47:46 CDT CPT-OV Office Visit 15:27:23 CDT CPT-OV Office Visit 17:20:34 CDT CPT-49463 Abx/Therapy Injection 15:05:57 CDT CPT-J1100 Decadron 8mg (Dexamethasone) 14:44:57 CDT CPT-J1040 Depo Medrol 80 mg (Methyl Prednisolone Acetate) 14:44: 57 CDT CPT-JTINJ Joint Injection 10:17:37 CDT CPT-74747 Administration 2+ single or combination vaccines inc oral 13:01:46 MARKETING INTERN CPT-98255 Administration single or combination vaccine inc oral 13 :01:46 MARKETING INTERN CPT-04768 Pneumovax 13:01:46 MARKETING INTERN CPT-26933 Influenza split virus > age 3 13:01:46 MARKETING INTERN CPT-54137 Administration single or combination vaccine inc oral 08 :56:49 CDT CPT-76316 Tdap 08:56:49 CDT
[2017-03-21] MEDS: ATORVASTATIN 40 MG (LIPITOR) TABLET PO SCH (21:42)
[2017-03-21] MEDS: TRIAMCINOLONE 0.1% CR (KENALOG) 15 GM TUBE TOP SCH (21:42)
[2017-03-21] MEDS: toPIRamate 100 MG (TOPAMAX) TAB PO SCH (21:42)
[2017-03-21] MEDS: DOCUSATE SODIUM 100 MG (COLACE) CAP PO SCH (21:42)
--- OUTSIDE RECORDS SUMMARY | 2017-03-21 21:43 | XMS REPORT | Clinical Summary ---
Author Author Admin, MARGRET Organization [employer] Address Unknown Phone Unavailable Allergies, Adverse Reactions, Alerts Allergy Name Reaction Description Start Date Severity Status Provider VALENTIN Critical Active Rodrigo Montemayorl ASSEMBLY REPAIRER CHLORHEXIDINE GLUCONATE tongue and gums swollen Critical Active Hoa Kabaford RMA NORFLEX Rash Critical Active Rowenaina Frazell ASSEMBLY REPAIRER TRAZODONE HCL sees things Critical Active [...] complication POISON KUNAL DERMATITIS 692.6 Resolved Yolande Lindasy MD PhD Contact dermatitis and other eczema [...] MD Lumbago Cough 786.2 Active Jillina Tyrel ASSEMBLY REPAIRER Cough 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 Jillina Frazellilian ZAPATAN 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 Anemia 285.9 Active Gab Padron MD Anemia, unspecified Conjunctivitis 372.30 Active Jillnacho Sarah APRN Conjunctivitis, unspecified Sinusitis 473.9 Active Jillina Frazell ASSEMBLY REPAIRER Unspecified sinusitis (chronic) Nonspecific syndrome suggestive of viral illness 079.99 Active Jillina Siml ASSEMBLY REPAIRER Unspecified viral infection Laryngitis 464.00 Active Jillina Farshadzell ASSEMBLY REPAIRER Acute laryngitis without mention of obstruction Abdominal [...] Abdominal pain, generalized 789.07 Active Silvestrellina Siml ASSEMBLY REPAIRER Abdominal pain, generalized Back pain, thoracic region, left 724.1 Active Jillina Farshadzell ASSEMBLY REPAIRER Pain in thoracic spine Abdominal pain, left [...] TOENAIL ICD-703.0 Inactive Yolande Lnidsay MD PhD Hip pain, left ICD-719.45 Inactive [...] 1/2 tab daily for 2 days PREDNISONE 10098152018 No Longer Active Gab Padron MD Active ZOFRAN ODT 4 MG TBDP 1 po q6hr PRN Nausea ONDANSETRON 49726349695 Active Jillina Frazell ASSEMBLY REPAIRER Active IBUPROFEN 600 MG TAB 1 tablet by mouth every 6 hours for 7 days, then 1 tablet every 6 hours as needed. Take with food IBUPROFEN 71042357526 Active Jillina Frazell ASSEMBLY REPAIRER Active BACTRIM DS 800-160 MG TAB 1 tab by mouth twice daily TRIMETHOPRIM-SULFAMETHOXAZOLE 77492113090 No Longer Active Gab Padron MD Active ADVAIR DISKUS 250-50 MCG/DOSE AEPB 1 puff BID FLUTICASONE- SALMETEROL 14491902459 Active Rodrigo Sarah APRN Active LEVOTHYROXINE SODIUM 75 MCG TABS Take 1 tab daily LEVOTHYROXINE SODIUM 86091003168 No Longer Active Mariana HICKEYA Active SYNTHROID 88 MCG ORAL TABS Take one by mouth daily LEVOTHYROXINE SODIUM 10624125052 Active Mariana HICKEYA Active CHERATUSSIN AC 100-10 MG/5ML SYRP 1 tsp by mouth every 4 hours as needed for cough GUAIFENESIN-CODEINE 60998220229 No Longer Active Gab Padron MD Active POLYTRIM 02761-5.1 UNIT/ML-% SOLN 1 gtt to affected eye q3h x 7 days POLYMYXIN B-TRIMETHOPRIM 01328490830 No Longer Active Gab Padron MD Active FLUTICASONE PROPIONATE 50 MCG/ACT SUSP 1 to 2 sprays each nostril daily 04/21 FLUTICASONE PROPIONATE 12990251439 No Longer Active Gab Padron MD Active TRILEPTAL 600 MG TABS Take one 1 tablet in Am and 1 tablet at night OXCARBAZEPINE 73950748297 Active Gab Padrno MD Active CEFDINIR 300 MG CAPS 1 po BID x 10 days CEFDINIR 34945490334 No Longer Active Rodrigo Sarah APRN Active CEFTIN 500 MG TAB 1 twice a day CEFUROXIME AXETIL 31816200872 No Longer Active Gab Padron MD Active AZITHROMYCIN 250 MG TABS 2 po qd x 1 day, then 1 po qd x 4 days AZITHROMYCIN 17988013018 No Longer Active Silvestrellnacho Sarah APRN Active CLARITIN 10 MG TAB 1 tablet by mouth daily as needed for allergies LORATADINE 62270136853 Active Silvestrellnacho Sarah APRN Active OXYCODONE HCL 5 MG ORAL CAPS 1 TAB PO Q HS OXYCODONE HCL 80952719967 No Longer Active Rodrigo Sarah APRN Active NIASPAN 500 MG ORAL CR-TABS 1 pill nightly x 1 week, then 2 pills nightly x 1 week, then 3 pills nightly x 1 week, then 4 pills nightly NIACIN (ANTIHYPERLIPIDEMIC) 97399996873 No Longer Active Rodrigo Farshadhossein ZAPATAN Active NIACIN 500 MG TABS 1 pill by mouth nightly x 1 week, then 2 pills x 1 week, then 3 pills x 1 week, then 4 pills nightly - take after evening meal, with applesauce or an apple NIACIN 85267221017 No Longer Active Yolande Lindsay MD PhD Active FISH OIL 1000 MG CAPS 3 pills daily OMEGA-3 FATTY ACIDS 97435863842 Active Yolande Lindsay MD PhD Active TRIAMCINOLONE ACETONIDE 0.1 % CREA apply bid sparingly to rash TRIAMCINOLONE ACETONIDE 91805016017 Active Yolande Lindsay MD PhD Active FUROSEMIDE 20 MG TAB 1 tablet by mouth daily FUROSEMIDE 05976536877 Active Tisha Lambert APRN Active LISINOPRIL 20 MG ORAL TABS 1 tab by mouth daily LISINOPRIL 23315192385 Active Gab Padron MD Active FUROSEMIDE 20 MG TABS 1 pill by mouth daily, for edema FUROSEMIDE 93500505933 No Longer Active Yolande Lindsay MD PhD Active ATORVASTATIN CALCIUM 10 MG TABS 1 pill by mouth daily, for cholesterol 09/06 ATORVASTATIN CALCIUM 88626919494 Active Gab Padron MD Active CALCIUM 600+D PLUS MINERALS 600-400 MG-UNIT ORAL CHEW 1 tab by mouth daily CALCIUM CARBONATE-VIT D-MIN 19453687594 No Longer Active Yolande Lindsay MD PhD Active CYCLOBENZAPRINE HCL 10 MG TABS 1 tablet by mouth three times daily as needed for muscle spasm/pain CYCLOBENZAPRINE HCL 85802705953 Active Yolande Lindsay MD PhD Active ONDANSETRON 4 MG TBDP 1 q4h PRN nausea ONDANSETRON 92079025563 Active Yolande Lindsay MD PhD Active ADULT ASPIRIN EC LOW STRENGTH 81 MG TBEC Take 1 tablet by mouth daily 2014 ASPIRIN 67931085220 No Longer Active Yolande Lindsay MD PhD Active ZOFRAN ODT 4 MG TBDP 1 pill dissolved by mouth every 4 hours if needed for nausea ONDANSETRON 39429018449 No Longer Active Yolande Lindsay MD PhD Active CEFTIN 500 MG TAB 1 twice a day CEFUROXIME AXETIL 77076956829 No Longer Active Yolande Lindsay MD PhD Active ALBUTEROL SULFATE 0.083 % NEBU SOLN one vial per nebulizer every 4-6 hours as needed ALBUTEROL SULFATE 07208871492 No Longer Active Alexis Ordaz MD Active DOXYCYCLINE HYCLATE 100 MG CAP 1 cap by mouth twice daily DOXYCYCLINE HYCLATE 08547044645 No Longer Active Yolande Lindsay MD PhD Active CYCLOBENZAPRINE HCL 10 MG TABS 1/2 - 1 tab by mouth three times daily if needed for spasms/pain CYCLOBENZAPRINE HCL 11324173918 No Longer Active Yolande Lindsay MD PhD Active AZITHROMYCIN 250 MG TABS 2 pills on day 1, then 1 pill daily x 4 days AZITHROMYCIN 43178070877 No Longer Active Yolande Lindsay MD PhD Active XOPENEX 1.25 MG/3ML NEBU 1 neb every 4 hours if needed for cough/congestion LEVALBUTEROL HCL 25155358714 No Longer Active Yolande Lindsay MD PhD Active DOXYCYCLINE HYCLATE 100 MG TAB 1 tab twice a day for 14 days 2013 DOXYCYCLINE HYCLATE 26469297365 No Longer Active Yolande Lindsay MD PhD Active PREVACID 30 MG CPDR Take 1 tablet by mouth daily-PRN LANSOPRAZOLE 88949282616 No Longer Active Yolande Lindsay MD PhD Active PA VITAMIN D-3 2000 UNIT CAPS 1 CAP PO DAILY CHOLECALCIFEROL 39636053476 No Longer Active Yolande Lindsay MD PhD Active CEFDINIR 300 MG CAPS by mouth twice a day CEFDINIR 50161950960 No Longer Active Gab Padron MD Active TOPAMAX 50 MG TABS 1 PO twice daily TOPIRAMATE 38803589679 Active Yolande Lindsay MD PhD Active AZITHROMYCIN 250 MG TABS 2 po qd x 1 day, then 1 po qd x 4 days AZITHROMYCIN 04720245218 No Longer Active Yolande Lindsay MD PhD Active DICLOFENAC SODIUM 75 MG TBEC 1 tablet by q 12 hours PRN headaches DICLOFENAC SODIUM 95166306192 No Longer Active Yolande Lindsay MD PhD Active FLONASE 50 MCG/ACT SUSP 1 spray each nostril am and hs FLUTICASONE PROPIONATE 51990737160 No Longer Active Todd Callaway MD Active ANUSOL-HC 25 MG SUPPOSITORY 1 rectally twice a day as needed for hemorrhoids HYDROCORTISONE JAYDEN (RECTAL) 73590517578 No Longer Active Yolande Lindsay MD PhD Active ANUSOL-HC 25 MG SUPPOSITORY 1 suppository rectally each evening as needed for anal fissure HYDROCORTISONE JAYDEN (RECTAL) 91418979400 No Longer Active LONNIE Iglesias Active VALIUM 5 MG TAB 1 po 30 minutes prior to your MRI DIAZEPAM 78908424593 No Longer Active LONNIE Iglesias Active METHOCARBAMOL 750 MG TABS 1 PO QID PRN METHOCARBAMOL 89941622557 No Longer Active Daphne Wetzel APRN Active NITROSTAT 0.4 MG SUBL as directed NITROGLYCERIN 80382305200 No Longer Active Rodrigo Sarah APRN Active ROBAXIN-750 750 MG TABS 2 four times a day for 3 days as needed for muscle spasm, then 1 four times a day as needed METHOCARBAMOL 13631030132 No Longer Active Rodrigo Sarah APRN Active HYDROCODONE-ACETAMINOPHEN 5-325 MG TABS 1 q 4-6 hrs prn HYDROCODONE-ACETAMINOPHEN 24090900942 No Longer Active Rodrigo Sarah ASSEMBLY REPAIRER Active VERAPAMIL HCL CR 180 MG CR-TABS TAKE 1 TAB DAILY VERAPAMIL HCL 10552463536 No Longer Active Yolande Lindsay MD PhD Active BACTRIM DS 800-160 MG TAB 1 tab by mouth twice daily TRIMETHOPRIM-SULFAMETHOXAZOLE 95753390925 No Longer Active Yolande Lindsay MD PhD Active NEXIUM 40 MG PACK 1 by mouth daily ESOMEPRAZOLE MAGNESIUM 71680846754 No Longer Active Des Hines MD Active EPIPEN 2-CHARLETTE 0.3 MG/0.3ML OMARI as need for allergic reaction EPINEPHRINE 92833099062 Active Yolande Lindsay MD PhD Active NEXIUM 40 MG CPDR 1 PO Q D DAY ESOMEPRAZOLE MAGNESIUM 97634289758 No Longer Active Sadia Perry RN Active NEXIUM 40 MG PACK 1 by mouth daily NEXIUM 40 MG PACK ESOMEPRAZOLE MAGNESIUM Inactive VERAPAMIL HCL CR 180 MG CR-TABS TAKE 1 TAB DAILY VERAPAMIL HCL CR 180 MG CR-TABS VERAPAMIL HCL Inactive HYDROCODONE-ACETAMINOPHEN 5-325 MG TABS 1 q 4-6 hrs prn HYDROCODONE-ACETAMINOPHEN 5-325 MG TABS 108669 HYDROCODONE-ACETAMINOPHEN Inactive ROBAXIN-750 750 MG TABS 2 four times a day for 3 days as needed for muscle spasm, then 1 four times a day as needed ROBAXIN-750 750 MG TABS 072610 METHOCARBAMOL Inactive NITROSTAT 0.4 MG SUBL as directed NITROSTAT 0.4 MG SUBL NITROGLYCERIN Inactive METHOCARBAMOL 750 MG TABS 1 PO QID PRN METHOCARBAMOL 750 MG TABS 417330 METHOCARBAMOL Inactive VALIUM 5 MG TAB 1 po 30 minutes prior to your MRI VALIUM 5 MG TAB 276410 DIAZEPAM Inactive ANUSOL-HC 25 MG SUPPOSITORY 1 suppository rectally each evening as needed for anal fissure ANUSOL-HC 25 MG SUPPOSITORY 6807377 HYDROCORTISONE JAYDEN (RECTAL) Inactive ANUSOL-HC 25 MG SUPPOSITORY 1 rectally twice a day as needed for hemorrhoids ANUSOL-HC 25 MG SUPPOSITORY 2723650 HYDROCORTISONE JAYDEN (RECTAL) Inactive FLONASE 50 MCG/ACT SUSP 1 spray each nostril am and hs FLONASE 50 MCG/ACT SUSP FLUTICASONE PROPIONATE Inactive DICLOFENAC SODIUM 75 MG TBEC 1 tablet by q 12 hours PRN headaches DICLOFENAC SODIUM 75 MG TBEC 718426 DICLOFENAC SODIUM Inactive PA VITAMIN D-3 2000 UNIT CAPS 1 CAP PO DAILY PA VITAMIN D-3 2000 UNIT CAPS CHOLECALCIFEROL Inactive PREVACID 30 MG CPDR Take 1 tablet by mouth daily-PRN PREVACID 30 MG CPDR 153559 LANSOPRAZOLE Inactive DOXYCYCLINE HYCLATE 100 MG TAB 1 tab twice a day for 14 days 2013 DOXYCYCLINE HYCLATE 100 MG TAB 4773842 DOXYCYCLINE HYCLATE Inactive XOPENEX 1.25 MG/3ML NEBU 1 neb every 4 hours if needed for cough/congestion XOPENEX 1.25 MG/3ML NEBU 503239 LEVALBUTEROL HCL Inactive CYCLOBENZAPRINE HCL 10 MG TABS 1/2 - 1 tab by mouth three times daily if needed for spasms/pain CYCLOBENZAPRINE HCL 10 MG TABS 435378 CYCLOBENZAPRINE HCL Inactive ALBUTEROL SULFATE 0.083 % NEBU SOLN one vial per nebulizer every 4-6 hours as needed ALBUTEROL SULFATE 0.083 % NEBU SOLN 877255 ALBUTEROL SULFATE Inactive CEFTIN 500 MG TAB 1 twice a day CEFTIN 500 MG TAB 521232 CEFUROXIME AXETIL Inactive ZOFRAN ODT 4 MG TBDP 1 pill dissolved by mouth every 4 hours if needed for nausea ZOFRAN ODT 4 MG TBDP 369225 ONDANSETRON Inactive ADULT ASPIRIN EC LOW STRENGTH 81 MG TBEC Take 1 tablet by mouth daily 2014 ADULT ASPIRIN EC LOW STRENGTH 81 MG TBEC 298796 ASPIRIN Inactive CALCIUM 600+D PLUS MINERALS 600-400 [...] or an apple NIACIN 500 MG TABS 800361 NIACIN Inactive NIASPAN 500 MG ORAL CR-TABS 1 pill nightly x 1 week, then 2 pills nightly x 1 week, then 3 pills nightly x 1 week, then 4 pills nightly NIASPAN 500 MG ORAL CR-TABS NIACIN (ANTIHYPERLIPIDEMIC) Inactive OXYCODONE HCL 5 MG ORAL CAPS 1 TAB PO Q HS OXYCODONE HCL 5 MG ORAL CAPS 6358829 OXYCODONE HCL Inactive FLUTICASONE PROPIONATE 50 MCG/ACT SUSP 1 to 2 sprays each nostril daily 04/21 FLUTICASONE PROPIONATE 50 MCG/ACT SUSP 624295 FLUTICASONE PROPIONATE Inactive POLYTRIM 39539-1.1 UNIT/ML-% SOLN 1 gtt to affected eye q3h x 7 days POLYTRIM 71651-9.1 UNIT/ML-% SOLN 547880 POLYMYXIN B- TRIMETHOPRIM Inactive CHERATUSSIN AC 100-10 MG/5ML SYRP 1 tsp by mouth every 4 hours as needed for cough CHERATUSSIN AC 100-10 MG/5ML SYRP 208020 GUAIFENESIN-CODEINE Inactive LEVOTHYROXINE SODIUM 75 MCG TABS Take 1 tab daily LEVOTHYROXINE SODIUM 75 MCG TABS 191468 LEVOTHYROXINE SODIUM Inactive BACTRIM DS 800-160 MG TAB 1 tab by mouth twice daily BACTRIM DS 800-160 MG TAB 19820606 TRIMETHOPRIM-SULFAMETHOXAZOLE Inactive AZITHROMYCIN 250 MG TABS 2 po qd x 1 day, then 1 po qd x 4 days AZITHROMYCIN 250 MG TABS 1618792 AZITHROMYCIN Inactive CEFDINIR 300 MG CAPS by mouth twice a day CEFDINIR 300 MG CAPS 310556 CEFDINIR Inactive AZITHROMYCIN 250 MG TABS 2 pills on day 1, then 1 pill daily x 4 days AZITHROMYCIN 250 MG TABS 5023486 AZITHROMYCIN Inactive DOXYCYCLINE HYCLATE 100 MG CAP 1 cap by mouth twice daily DOXYCYCLINE HYCLATE 100 MG CAP 8303530 DOXYCYCLINE HYCLATE Inactive FUROSEMIDE 20 MG TABS 1 pill by mouth daily, for edema FUROSEMIDE 20 MG TABS 845941 FUROSEMIDE Inactive AZITHROMYCIN 250 MG TABS 2 po qd x 1 day, then 1 po qd x 4 days AZITHROMYCIN 250 MG TABS 9601664 AZITHROMYCIN Inactive CEFTIN 500 MG TAB 1 twice a day CEFTIN 500 MG TAB 727293 CEFUROXIME AXETIL Inactive CEFDINIR 300 MG CAPS [...] for 2 days PREDNISONE 20 MG TAB 632571 PREDNISONE Inactive Immunizations Vaccine Administration Date Value Standard Description Seasonal influenza vaccine, injectable, containing preservative, for > 3 years old (Afluria, FluLaval, Fluzone, Fluvirin, Fluarix, Agriflu(>=18 yo)) Fluzone (>3 yrs.) [SYZ899] Influenza, seasonal, injectable influenza immunization (Flu Vax) has been administered Influenza - Unspecified Formulation [CVX88] influenza virus vaccine, unspecified formulation Seasonal influenza vaccine, injectable, containing preservative, for > 3 years old (Afluria, FluLaval, Fluzone, Fluvirin, Fluarix, Agriflu(>=18 yo)) Fluzone (>3 yrs.) [SXX122] Influenza, seasonal, injectable pneumococcal immunization administered Pneumovax 23 [CVX33] pneumococcal polysaccharide vaccine, 23 valent dT (Diphtheria and Tetanus) booster given given Td(adult) unspecified formulation Boostrix (Tetanus toxoid, reduced diphtheria toxoid and acellular pertussis vaccine, adsorbed), booster Boostrix [SKJ560] tetanus toxoid, reduced diphtheria toxoid, and acellular [...] Panel - Chemistry sodium, serum 142 mmol/L 908-475 1097/06/30 potassium, serum 4.4 mmol/L 3.5-5.2 chloride, serum 108 mmol/L 98-107 carbon dioxide, venous blood 25.1 mmol/L 21.0-32.0 blood glucose 82 mg/dL 65-110 calcium, serum 9.1 mg/dL 8.5-10.1 urea nitrogen, blood 18 mg/dL 7-18 creatinine, serum 1.31 mg/dL 0.55-1.30 Lab Report: [facility] Advanced Lipid and Inlammation Panel /86639 - Chemistry cholesterol, serum 148 mg/dL 276-762 7803/09/02 HDL cholesterol, serum 55 mg/dL > OR=46 [...] (L) - Chemistry sodium, serum 145 mmol/L 331-320 1120/09/02 potassium, serum 4.6 mmol/L 3.5-5.2 chloride, serum [...] Rate - Chemistry sodium, serum 139 mmol/L 483-656 7262/03/24 carbon dioxide, venous blood 22.4 mmol/L 21.0-32.0 [...] ... - Chemistry sodium, serum 143 mmol/L 459-251 1124/05/02 carbon dioxide, venous blood 25.6 mmol/L 21.0-32.0 [...] Negative mg/dL Negative sodium, serum 142 mmol/L 577-931 3664/07/18 carbon dioxide, venous blood 27.8 mmol/L 21.0-32.0 [...] mg/dL Encounters Code Encounter Date Provider Facility CPT-17192 Level 3 Est. Patient 11:01:51 CDT Gab Padron MD [facility] CPT-20489 Level 3 Est. Patient 15:27:02 CDT Jared Og MD [facility] [place] CPT-35381 Level 4 Est. Patient 09:25:27 CDT Gab Padron MD [facility] CPT-70381 Level 3 Est. Patient 10:29:41 CDT Rodrigo Sarah APRN [facility] CPT-38439 Level 4 Est. Patient 17:51:05 CDT Gab Padron MD [facility]-45991 Level 3 Est. Patient 14:18:08 CDT Gab Padron MD [facility]-25831 Level 4 Est. Patient 10:18:54 CDT Gab Padron MD [facility]-67300 Level 3 Est. Patient 11:30:07 CDT Rodrigo Sarah APRN [facility]-73501 Level 4 Est. Patient 21:02:30 CIVIL ENGINEERING TECHNICIAN Gab Padron MD [facility]-68455 Level 3 Est. Patient 11:02:19 CIVIL ENGINEERING TECHNICIAN Gab Padron MD [facility]-34945 Level 4 Est. Patient 22:24:31 CIVIL ENGINEERING TECHNICIAN Gab Padron MD [facility]-51648 Level 3 Est. Patient 18:33:46 CIVIL ENGINEERING TECHNICIAN Gab Padron MD [facility]-43675 Level 3 Est. Patient 16:19:11 CDT Yolande Lindsay MD [facility]-80654 Level 3 Est. Patient 18:59:14 CDT Yolande Lindsay MD [facility]-69888 Level 4 Est. Patient 21:29:26 CDT Yolande Lindsay MD [facility]-10984 Level 3 Est. Patient 07:37:45 CDT Yolande Lindsay MD [facility]-28222 Level 3 Est. Patient 17:03:46 CDT Yolande Lindsay MD [facility]-92223 Level 4 Est. Patient 20:02:13 CIVIL ENGINEERING TECHNICIAN Yolande Lindsay MD [facility]-70634 Level 3 Est. Patient 16:02:07 CIVIL ENGINEERING TECHNICIAN Alexis Ordaz MD [facility] CPT-61714 Level 3 Est. Patient 12:41:24 CIVIL ENGINEERING TECHNICIAN Yolande Lindsay MD [facility] CPT-29232 Level 3 Est. Patient 15:41:20 CIVIL ENGINEERING TECHNICIAN Yolande Lindsay MD [facility]-66178 Level 3 Est. Patient 13:20:02 CIVIL ENGINEERING TECHNICIAN Yolande Lindsay MD [facility]-74432 Level 3 Est. Patient 15:00:38 CDT Jared Og MD [facility] CPT-02889 Level 3 Est. Patient 10:22:32 CDT Yolande Lindsay MD [facility]-80113 Level 3 Est. Patient 17:12:58 CDT Yolande Lindsay MD [facility] CPT-00997 Level 4 Est. Patient 13:30:58 CDT Yolande Lindsay MD [facility] CPT-61880 Level 4 New Patient 09:02:42 CDT Jared Og MD [facility] CPT-12689 Level 3 Est. Patient 08:19:07 CDT Yolande Lindsay MD [facility] CPT-80393 Level 3 Est. Patient 12:00:13 CIVIL ENGINEERING TECHNICIAN Gab Padron MD [facility] CPT-19850 Level 3 Est. Patient 16:15:23 CIVIL ENGINEERING TECHNICIAN Yolande Lindsay MD [facility] CPT-91309 Level 2 Est. Patient 19:47:15 CDT Yolande Lindsay MD [facility] CPT-13287 Level 3 Est. Patient 21:38:31 CDT Yolande Lindsay MD [facility]-05354 Level 3 Est. Patient 10:25:12 CDT Adiel PERAZA [facility] CPT-54573 Level 4 Est. Patient 10:51:58 CDT Yolande Lindsay MD [facility]-14845 Level 3 Est. Patient 14:04:55 CIVIL ENGINEERING TECHNICIAN Rodrigo Sarah [facility]-20766 Level 3 Est. Patient 10:46:35 CIVIL ENGINEERING TECHNICIAN Rodrigo Sarah [facility]-29062 Level 3 Est. Patient 14:24:37 CIVIL ENGINEERING TECHNICIAN Yolande Lindsay MD [facility]-45633 Level 3 Est. Patient 17:41:58 CIVIL ENGINEERING TECHNICIAN Yolande Lindsay MD [facility]-35438 Level 2 Est. Patient 22:01:41 CIVIL ENGINEERING TECHNICIAN Rodrigo Sarah [facility]-23611 Level 2 Est. Patient 22:01:11 CIVIL ENGINEERING TECHNICIAN Rodrigo Sarah [facility]-73577 Level 3 Est. Patient 10:12:29 CIVIL ENGINEERING TECHNICIAN Rodrigo Sarah [facility] CPT-84992 Level 3 Est. Patient 11:05:44 CDT Alexis Ordaz MD [facility]-06255 Level 3 Est. Patient 14:57:20 CDT Yolande Lindsay MD [facility]-68163 Level 3 Est. Patient 14:40:57 CDT Yolande Lindsay MD [facility]-03144 Level 3 Est. Patient 20:55:40 CDT Yolande Lindsay MD [facility]-91290 Level 3 Est. Patient 12:42:38 CIVIL ENGINEERING TECHNICIAN Yolande Lindsay MD [facility]08704 Level 3 Est. Patient 11:54:49 CIVIL ENGINEERING TECHNICIAN Des Hines MD [facility]-58810 Level 3 Est. Patient 17:06:38 CDT Dewayne PERAZA [facility] Procedures Code Procedure Name Date Entry Date Standard Description CPT-41672 Foot, left, comp min 3V - XRAY USE ONLY 09:24:54 CDT CPT-40908 Abd single AP View - XRAY USE ONLY 11:16:17 CDT CPT-78493 T spine AP/ Lat - XRAY USE ONLY 09:34:21 CDT CPT-48977 Chest 2V Frontal and Lat - XRAY USE ONLY 10:48:51 CDT CPT-66961 LS spine comp w obliq 13:28:00 CIVIL ENGINEERING TECHNICIAN CPT-J1040 Depo Medrol 80 mg (Methyl Prednisolone Acetate) 10:51: 28 CIVIL ENGINEERING TECHNICIAN CPT-J1100 Decadron 8mg (Dexamethasone) 10:51:28 CIVIL ENGINEERING TECHNICIAN CPT-80732 Abx/Therapy Injection 10:51:28 CIVIL ENGINEERING TECHNICIAN CPT-J1100 Decadron 8mg (Dexamethasone) 21:02:30 CIVIL ENGINEERING TECHNICIAN CPT-J1040 Depo Medrol 80 mg (Methyl Prednisolone Acetate) 21:02: 30 CIVIL ENGINEERING TECHNICIAN [id number] Event Monitor - MC Transmission 09:12:32 CDT 08/06 [id number] Event Monitor - MC review and interp 09:12:32 CDT [id number] Event Monitor - MC recording 09:12:32 CDT CPT-03459 EKG Trac and Interp 16:50:22 CDT CPT-J1030 Depo Medrol 40 mg (Methyl Prednisolone Acetate) 17:05: 54 CDT CPT-J1100 Decadron 4mg (Dexamethasone) 17:05:54 CDT CPT-24887 Abx/Therapy Injection 17:05:54 CDT CPT-J1100 Decadron 4mg (Dexamethasone) 16:55:28 CDT CPT-J1030 Depo Medrol 40 mg (Methyl Prednisolone Acetate) 16:55: 28 CDT CPT-66217 Ankle Complete - Min 3V 15:58:50 CDT CPT-45079 Knee 3V 15:58:50 CDT CPT-15666 Hip comp min 2V 15:58:50 CDT CPT-J2270 Morphine Sulfate 10 mg 14:25:44 CIVIL ENGINEERING TECHNICIAN CPT-J2550 Phenergan 12.5 mg (Promethazine) 14:25:44 CIVIL ENGINEERING TECHNICIAN CPT-71440 Abx/Therapy Injection 14:25:44 CIVIL ENGINEERING TECHNICIAN CPT-J2550 Phenergan 12.5 mg (Promethazine) 14:08:03 CIVIL ENGINEERING TECHNICIAN CPT-J2270 Morphine Sulfate 10 mg 14:08:03 CIVIL ENGINEERING TECHNICIAN CPT-46783 Bladder Scan 15:00:38 CDT CPT-TCMM Transitional Care Mgmt-Moderate 09:52:22 CDT CPT-J1030 Depo Medrol 40 mg (Methyl Prednisolone Acetate) 10:55: 18 CDT CPT-J1100 Decadron 4mg (Dexamethasone) 10:55:18 CDT CPT-29763 Abx/Therapy Injection 10:55:18 CDT CPT-J1030 Depo Medrol 40 mg (Methyl Prednisolone Acetate) 10:22: 32 CDT CPT-J1100 Decadron 4mg (Dexamethasone) 10:22:32 CDT CPT-55541 Postop F/U Visit 14:37:13 CDT CPT-97074 Ankle Complete - Min 3V 17:11:58 CDT CPT-45190 Foot comp min 3V 17:11:58 CDT CPT-39073 Bladder Scan 09:56:58 CDT CPT-39972 Postop F/U Visit 09:56:58 CDT CPT-77375 Cystoscopy 09:02:42 CDT CPT-46224 Bladder Scan 09:02:42 CDT CPT-01698 Abd single AP View 16:00:35 CDT CPT-54265 Administration single or combination vaccine inc oral 10 :15:43 CDT CPT-64047 Influenza split virus > age 3 10:15:43 CDT CPT-87130 Nail Avulsion 09:24:57 CDT CPT-OV Office Visit 11:15:41 CDT CPT-86457 Abx/Therapy Injection 10:51:30 CDT CPT-J3301 Kenalog 40 mg (Triamcinolone Acetonide) 10:25:12 CDT CPT-J1100 Decadron 4mg (Dexamethasone) 10:25:12 CDT CPT-00204 Anoscopy diagnostic 10:36:12 CDT CPT-OV Office Visit 15:34:31 CDT CPT-44677 Abx/Therapy Injection 08:21:15 CIVIL ENGINEERING TECHNICIAN CPT-J1885 Toradol 60 mg (Ketorolac) 10:46:35 CIVIL ENGINEERING TECHNICIAN CPT-OV Office Visit 19:51:16 CIVIL ENGINEERING TECHNICIAN CPT-80628 Spec Collection and Handling Fee 14:34:18 CIVIL ENGINEERING TECHNICIAN CPT-PV Prev. Care Visit 14:19:18 CIVIL ENGINEERING TECHNICIAN CPT-25820 Postop F/U Visit 14:47:51 CIVIL ENGINEERING TECHNICIAN CPT-75140 Postop F/U Visit 15:15:14 CIVIL ENGINEERING TECHNICIAN CPT-67089 Postop F/U Visit 14:41:43 CDT CPT-73208 Postop F/U Visit 15:47:46 CDT CPT-OV Office Visit 15:27:23 CDT CPT-OV Office Visit 17:20:34 CDT CPT-89598 Abx/Therapy Injection 15:05:57 CDT CPT-J1100 Decadron 8mg (Dexamethasone) 14:44:57 CDT CPT-J1040 Depo Medrol 80 mg (Methyl Prednisolone Acetate) 14:44: 57 CDT CPT-JTINJ Joint Injection 10:17:37 CDT CPT-99012 Administration 2+ single or combination vaccines inc oral 13:01:46 CIVIL ENGINEERING TECHNICIAN CPT-52198 Administration single or combination vaccine inc oral 13 :01:46 CIVIL ENGINEERING TECHNICIAN CPT-21197 Pneumovax 13:01:46 CIVIL ENGINEERING TECHNICIAN CPT-38045 Influenza split virus > age 3 13:01:46 CIVIL ENGINEERING TECHNICIAN CPT-31672 Administration single or combination vaccine inc oral 08 :56:49 CDT CPT-00151 Tdap 08:56:49 CDT
--- OUTSIDE RECORDS SUMMARY | 2017-03-21 21:45 | XMS REPORT | Clinical Summary ---
Author Author Admin, E Organization [facility] Address Unknown Phone Unavailable Allergies, Adverse Reactions, Alerts Allergy Name Reaction Description Start Date Severity Status Provider VALENTIN Critical Active Rodrigo Fracharlottel POULTRY PACKER CHLORHEXIDINE GLUCONATE tongue and gums swollen Critical Active Hoadante Otto RMA NORFLEX Rash Critical Active Silvestrellina Frazell POULTRY PACKER TRAZODONE HCL sees things Critical Active [...] sinusitis, unspecified Abdominal pain, LLQ 789.04 Resolved Yloande Lindsay MD PhD Abdominal pain, left lower [...] daily for 2 days end 02/05/17 PREDNISONE 38895303647 Active Gab Padron MD Active ZANTAC 150 MG TAB 1 by mouth twice daily RANITIDINE HCL 39027315048 Active Gab Padron MD Active TRIAMCINOLONE ACETONIDE 0.1 % CREA Apply to affected area 3 times daily for up to 2 weeks TRIAMCINOLONE ACETONIDE 71084149437 Active Tisha Lambert POULTRY PACKER Active LISINOPRIL 40 MG TABS 1 tablet by mouth daily LISINOPRIL 97625921228 Active Tisha Lambert APRN Active IBUPROFEN 600 MG TAB 1 tablet by mouth every 6 hours for 7 days, then 1 tablet every 6 hours as needed. Take with food IBUPROFEN 54852491983 No Longer Active Tisha Lambert APRN Active PREDNISONE 20 MG TAB 1 tab twice daily for 3 day, then one daily for three days PREDNISONE 08359202246 No Longer Active Tisha Fausto GAUTAM Active TRIAMCINOLONE ACETONIDE 0.1 % CREA apply bid sparingly to rash TRIAMCINOLONE ACETONIDE 15346660186 No Longer Active Gab Padron MD Active TRAMADOL HCL 50 MG TABS 1 tab po every 6 hrs prn pain TRAMADOL HCL 48791651412 No Longer Active Gab Padron MD Active BACTRIM DS 800-160 MG TAB 1 tab by mouth twice daily TRIMETHOPRIM-SULFAMETHOXAZOLE 69373965121 No Longer Active Tisha Lambert APRN Active ADVAIR DISKUS 250-50 MCG/DOSE AEPB 1 puff BID FLUTICASONE-SALMETEROL 77002437869 No Longer Active Todd Callaway MD Active ONDANSETRON 4 MG TBDP 1 q4h PRN nausea ONDANSETRON 14523849002 No Longer Active LONNIE Iglesias Active FISH OIL 1000 MG CAPS 3 pills daily OMEGA-3 FATTY ACIDS 00034273264 No Longer Active LONNIE Iglesias Active CETIRIZINE HCL 10 MG ORAL TABS 1 po qd PRN Allergies CETIRIZINE HCL 91822834545 Active Gab Padron MD Active CLARITIN 10 MG TAB 1 tablet by mouth daily as needed for allergies LORATADINE 07212712042 No Longer Active Gab Padron MD Active PREDNISONE 20 MG TAB take 3 tabs daily for 3 days, 2 tabs daily for 3 days, 1 tab daily for 3 days, 1/2 tab daily for 3 days PREDNISONE 99903596514 No Longer Active Tisha Lambert APRN Active PREDNISONE 20 MG TAB 2 tabs daily for 3 days, 1 tab daily for 3 days, 1/2 tab daily for 2 days PREDNISONE 49744541173 No Longer Active Gab Padron MD Active ZOFRAN ODT 4 MG TBDP 1 po q6hr PRN Nausea ONDANSETRON 19951256518 Active Gab Padron MD Active BACTRIM DS 800-160 MG TAB 1 tab by mouth twice daily TRIMETHOPRIM-SULFAMETHOXAZOLE 45712662933 No Longer Active Gab Padron MD Active LEVOTHYROXINE SODIUM 75 MCG TABS Take 1 tab daily LEVOTHYROXINE SODIUM 36109541942 No Longer Active Mariana FLEMING Active SYNTHROID 88 MCG ORAL TABS Take one by mouth daily LEVOTHYROXINE SODIUM 06427196050 Active Tisha Lambert APRN Active CHERATUSSIN AC 100-10 MG/5ML SYRP 1 tsp by mouth every 4 hours as needed for cough GUAIFENESIN-CODEINE 93861933817 No Longer Active Gab Padron MD Active POLYTRIM 31403-8.1 UNIT/ML-% SOLN 1 gtt to affected eye q3h x 7 days POLYMYXIN B-TRIMETHOPRIM 52676988247 No Longer Active Gab Padron MD Active FLUTICASONE PROPIONATE 50 MCG/ACT SUSP 1 to 2 sprays each nostril daily 04/21 FLUTICASONE PROPIONATE 62864389956 No Longer Active Gab Padron MD Active TRILEPTAL 600 MG TABS Take one 1 tablet in Am and 1 tablet at night OXCARBAZEPINE 52321673251 Active Gab Padron MD Active CEFDINIR 300 MG CAPS 1 po BID x 10 days CEFDINIR 13243230889 No Longer Active Rodrigo Sarah APRN Active CEFTIN 500 MG TAB 1 twice a day CEFUROXIME AXETIL 03562688265 No Longer Active Gab Padron MD Active AZITHROMYCIN 250 MG TABS 2 po qd x 1 day, then 1 po qd x 4 days AZITHROMYCIN 22204610981 No Longer Active Rodrigo Sarah APRN Active OXYCODONE HCL 5 MG ORAL CAPS 1 TAB PO Q HS OXYCODONE HCL 39987829256 No Longer Active Rodrigo Sarah APRN Active NIASPAN 500 MG ORAL CR-TABS 1 pill nightly x 1 week, then 2 pills nightly x 1 week, then 3 pills nightly x 1 week, then 4 pills nightly NIACIN (ANTIHYPERLIPIDEMIC) 12551696046 No Longer Active Rodrigo Sarah APRN Active NIACIN 500 MG TABS 1 pill by mouth nightly x 1 week, then 2 pills x 1 week, then 3 pills x 1 week, then 4 pills nightly - take after evening meal, with applesauce or an apple NIACIN 06386274035 No Longer Active Yolande Lindsay MD PhD Active FUROSEMIDE 20 MG TAB 1 tablet by mouth daily FUROSEMIDE 95013595625 Active Gab Padron MD Active FUROSEMIDE 20 MG TABS 1 pill by mouth daily, for edema FUROSEMIDE 23070227220 No Longer Active Yolande Lindsay MD PhD Active ATORVASTATIN CALCIUM 10 MG TABS 1 pill by mouth daily, for cholesterol 09/06 ATORVASTATIN CALCIUM 66447845868 Active Gab Padron MD Active CALCIUM 600+D PLUS MINERALS 600-400 MG-UNIT ORAL CHEW 1 tab by mouth daily CALCIUM CARBONATE-VIT D-MIN 85866292637 No Longer Active Yolande Lindsay MD PhD Active CYCLOBENZAPRINE HCL 10 MG TABS 1 tablet by mouth three times daily as needed for muscle spasm/pain CYCLOBENZAPRINE HCL 96206696404 Active Yolande Lindsay MD PhD Active ADULT ASPIRIN EC LOW STRENGTH 81 MG TBEC Take 1 tablet by mouth daily 2014 ASPIRIN 87259024071 No Longer Active Yolande Lindsay MD PhD Active ZOFRAN ODT 4 MG TBDP 1 pill dissolved by mouth every 4 hours if needed for nausea ONDANSETRON 88897865110 No Longer Active Yolande Lindsay MD PhD Active CEFTIN 500 MG TAB 1 twice a day CEFUROXIME AXETIL 92316458389 No Longer Active Yolande Lindsay MD PhD Active ALBUTEROL SULFATE 0.083 % NEBU SOLN one vial per nebulizer every 4-6 hours as needed ALBUTEROL SULFATE 86136881906 No Longer Active Alexis Ordaz MD Active DOXYCYCLINE HYCLATE 100 MG CAP 1 cap by mouth twice daily DOXYCYCLINE HYCLATE 83821821473 No Longer Active Yolande Lindsay MD PhD Active CYCLOBENZAPRINE HCL 10 MG TABS 1/2 - 1 tab by mouth three times daily if needed for spasms/pain CYCLOBENZAPRINE HCL 76492800424 No Longer Active Yolande Lindsay MD PhD Active AZITHROMYCIN 250 MG TABS 2 pills on day 1, then 1 pill daily x 4 days AZITHROMYCIN 52962299698 No Longer Active Yolande Lindsay MD PhD Active XOPENEX 1.25 MG/3ML NEBU 1 neb every 4 hours if needed for cough/congestion LEVALBUTEROL HCL 10959324317 No Longer Active Yolande Lindsay MD PhD Active DOXYCYCLINE HYCLATE 100 MG TAB 1 tab twice a day for 14 days 2013 DOXYCYCLINE HYCLATE 42896296568 No Longer Active Yolande Lindsay MD PhD Active PREVACID 30 MG CPDR Take 1 tablet by mouth daily-PRN LANSOPRAZOLE 88174352992 No Longer Active Yolande Lindsay MD PhD Active PA VITAMIN D-3 2000 UNIT CAPS 1 CAP PO DAILY CHOLECALCIFEROL 63243036699 No Longer Active Yolande Lindsay MD PhD Active CEFDINIR 300 MG CAPS by mouth twice a day CEFDINIR 05934256843 No Longer Active Gab Padron MD Active TOPAMAX 50 MG TABS 1 PO twice daily TOPIRAMATE 22891116579 Active Yolande Lindsay MD PhD Active AZITHROMYCIN 250 MG TABS 2 po qd x 1 day, then 1 po qd x 4 days AZITHROMYCIN 84202950285 No Longer Active Yolande Lindsay MD PhD Active DICLOFENAC SODIUM 75 MG TBEC 1 tablet by q 12 hours PRN headaches DICLOFENAC SODIUM 18869870168 No Longer Active Yolande Lindsay MD PhD Active FLONASE 50 MCG/ACT SUSP 1 spray each nostril am and hs FLUTICASONE PROPIONATE 89345558825 No Longer Active Todd Callaway MD Active ANUSOL-HC 25 MG SUPPOSITORY 1 rectally twice a day as needed for hemorrhoids HYDROCORTISONE JYADEN (RECTAL) 71023168605 No Longer Active Yolande Lindsay MD PhD Active ANUSOL-HC 25 MG SUPPOSITORY 1 suppository rectally each evening as needed for anal fissure HYDROCORTISONE JAYDEN (RECTAL) 96275118156 No Longer Active LONNIE Iglesias Active VALIUM 5 MG TAB 1 po 30 minutes prior to your MRI DIAZEPAM 74307373562 No Longer Active LONNIE Iglesias Active METHOCARBAMOL 750 MG TABS 1 PO QID PRN METHOCARBAMOL 27678114442 No Longer Active Daphne Wetzel APRN Active NITROSTAT 0.4 MG SUBL as directed NITROGLYCERIN 19791022111 No Longer Active Rodrigo Sarah APRN Active ROBAXIN-750 750 MG TABS 2 four times a day for 3 days as needed for muscle spasm, then 1 four times a day as needed METHOCARBAMOL 10286719343 No Longer Active Rodrigo Sarah APRN Active HYDROCODONE-ACETAMINOPHEN 5-325 MG TABS 1 q 4-6 hrs prn HYDROCODONE-ACETAMINOPHEN 53408640603 No Longer Active Silvestrellnacho Sarah APRN Active VERAPAMIL HCL CR 180 MG CR-TABS TAKE 1 TAB DAILY VERAPAMIL HCL 41549325630 No Longer Active Yolande Lindsay MD PhD Active BACTRIM DS 800-160 MG TAB 1 tab by mouth twice daily TRIMETHOPRIM-SULFAMETHOXAZOLE 61548050799 No Longer Active Yolande Lindsay MD PhD Active NEXIUM 40 MG PACK 1 by mouth daily ESOMEPRAZOLE MAGNESIUM 53005883511 No Longer Active Des Hines MD Active EPIPEN 2-CHARLETTE 0.3 MG/0.3ML OMARI as need for allergic reaction EPINEPHRINE 25227597901 Active Yolande Lindsay MD PhD Active NEXIUM 40 MG CPDR 1 PO Q D DAY ESOMEPRAZOLE MAGNESIUM 10755064111 No Longer Active Sadia Perry RN Active NEXIUM 40 MG PACK 1 by mouth daily NEXIUM 40 MG PACK ESOMEPRAZOLE MAGNESIUM Inactive VERAPAMIL HCL CR 180 MG CR-TABS TAKE 1 TAB DAILY VERAPAMIL HCL CR 180 MG CR-TABS VERAPAMIL HCL Inactive HYDROCODONE-ACETAMINOPHEN 5-325 MG TABS 1 q 4-6 hrs prn HYDROCODONE-ACETAMINOPHEN 5-325 MG TABS 004231 HYDROCODONE-ACETAMINOPHEN Inactive ROBAXIN-750 750 MG TABS 2 four times a day for 3 days as needed for muscle spasm, then 1 four times a day as needed ROBAXIN-750 750 MG TABS 904641 METHOCARBAMOL Inactive NITROSTAT 0.4 MG SUBL as directed NITROSTAT 0.4 MG SUBL 099221 NITROGLYCERIN Inactive METHOCARBAMOL 750 MG TABS 1 PO QID PRN METHOCARBAMOL 750 MG TABS 849843 METHOCARBAMOL Inactive VALIUM 5 MG TAB 1 po 30 minutes prior to your MRI VALIUM 5 MG TAB 245235 DIAZEPAM Inactive ANUSOL-HC 25 MG SUPPOSITORY 1 suppository rectally each evening as needed for anal fissure ANUSOL-HC 25 MG SUPPOSITORY 9554373 HYDROCORTISONE JAYDEN (RECTAL) Inactive ANUSOL-HC 25 MG SUPPOSITORY 1 rectally twice a day as needed for hemorrhoids ANUSOL-HC 25 MG SUPPOSITORY 2516257 HYDROCORTISONE JAYDEN (RECTAL) Inactive FLONASE 50 MCG/ACT SUSP 1 spray each nostril am and hs FLONASE 50 MCG/ACT SUSP 0002092 FLUTICASONE PROPIONATE Inactive DICLOFENAC SODIUM 75 MG TBEC 1 tablet by q 12 hours PRN headaches DICLOFENAC SODIUM 75 MG TBEC 268961 DICLOFENAC SODIUM Inactive PA VITAMIN D-3 2000 UNIT CAPS 1 CAP PO DAILY PA VITAMIN D-3 2000 UNIT CAPS CHOLECALCIFEROL Inactive PREVACID 30 MG CPDR Take 1 tablet by mouth daily-PRN PREVACID 30 MG CPDR 191589 LANSOPRAZOLE Inactive DOXYCYCLINE HYCLATE 100 MG TAB 1 tab twice a day for 14 days 2013 DOXYCYCLINE HYCLATE 100 MG TAB 0442713 DOXYCYCLINE HYCLATE Inactive XOPENEX 1.25 MG/3ML NEBU 1 neb every 4 hours if needed for cough/congestion XOPENEX 1.25 MG/3ML NEBU 793324 LEVALBUTEROL HCL Inactive CYCLOBENZAPRINE HCL 10 MG TABS 1/2 - 1 tab by mouth three times daily if needed for spasms/pain CYCLOBENZAPRINE HCL 10 MG TABS 732031 CYCLOBENZAPRINE HCL Inactive ALBUTEROL SULFATE 0.083 % NEBU SOLN one vial per nebulizer every 4-6 hours as needed ALBUTEROL SULFATE 0.083 % NEBU SOLN 985262 ALBUTEROL SULFATE Inactive CEFTIN 500 MG TAB 1 twice a day CEFTIN 500 MG TAB 674224 CEFUROXIME AXETIL Inactive ZOFRAN ODT 4 MG TBDP 1 pill dissolved by mouth every 4 hours if needed for nausea ZOFRAN ODT 4 MG TBDP 224563 ONDANSETRON Inactive ADULT ASPIRIN EC LOW STRENGTH 81 MG TBEC Take 1 tablet by mouth daily 2014 ADULT ASPIRIN EC LOW STRENGTH 81 MG TBEC 608760 ASPIRIN Inactive CALCIUM 600+D PLUS MINERALS 600-400 [...] or an apple NIACIN 500 MG TABS 306113 NIACIN Inactive NIASPAN 500 MG ORAL CR-TABS 1 pill nightly x 1 week, then 2 pills nightly x 1 week, then 3 pills nightly x 1 week, then 4 pills nightly NIASPAN 500 MG ORAL CR-TABS NIACIN (ANTIHYPERLIPIDEMIC) Inactive OXYCODONE HCL 5 MG ORAL CAPS 1 TAB PO Q HS OXYCODONE HCL 5 MG ORAL CAPS 3634929 OXYCODONE HCL Inactive FLUTICASONE PROPIONATE 50 MCG/ACT SUSP 1 to 2 sprays each nostril daily 04/21 FLUTICASONE PROPIONATE 50 MCG/ACT SUSP 4390878 FLUTICASONE PROPIONATE Inactive POLYTRIM 12408-1.1 UNIT/ML-% SOLN 1 gtt to affected eye q3h x 7 days POLYTRIM 02574-0.1 UNIT/ML-% SOLN 637391 POLYMYXIN B- TRIMETHOPRIM Inactive CHERATUSSIN AC 100-10 MG/5ML SYRP 1 tsp by mouth every 4 hours as needed for cough CHERATUSSIN AC 100-10 MG/5ML SYRP 402950 GUAIFENESIN-CODEINE Inactive LEVOTHYROXINE SODIUM 75 MCG TABS Take 1 tab daily LEVOTHYROXINE SODIUM 75 MCG TABS 309021 LEVOTHYROXINE SODIUM Inactive CLARITIN 10 MG TAB 1 tablet by mouth daily as needed for allergies CLARITIN 10 MG TAB 466772 LORATADINE Inactive FISH OIL 1000 MG CAPS 3 pills daily FISH OIL 1000 MG CAPS OMEGA-3 FATTY ACIDS Inactive ONDANSETRON 4 MG TBDP 1 q4h PRN nausea ONDANSETRON 4 MG TBDP 188133 ONDANSETRON Inactive ADVAIR DISKUS 250-50 MCG/DOSE AEPB 1 puff BID ADVAIR DISKUS 250-50 MCG/DOSE AEPB FLUTICASONE-SALMETEROL Inactive TRAMADOL HCL 50 MG TABS 1 tab po every 6 hrs prn pain TRAMADOL HCL 50 MG TABS 300222 TRAMADOL HCL Inactive TRIAMCINOLONE ACETONIDE 0.1 % CREA apply bid sparingly to rash TRIAMCINOLONE ACETONIDE 0.1 % CREA 2695032 TRIAMCINOLONE ACETONIDE Inactive PREDNISONE 20 MG TAB 1 tab twice daily for 3 day, then one daily for three days PREDNISONE 20 MG TAB 449752 PREDNISONE Inactive IBUPROFEN 600 MG TAB 1 tablet by mouth every 6 hours for 7 days, then 1 tablet every 6 hours as needed. Take with food IBUPROFEN 600 MG TAB 781177 IBUPROFEN Inactive BACTRIM DS 800-160 MG TAB 1 tab by mouth twice daily BACTRIM DS 800-160 MG TAB 19820606 TRIMETHOPRIM-SULFAMETHOXAZOLE Inactive AZITHROMYCIN 250 MG TABS 2 po qd x 1 day, then 1 po qd x 4 days AZITHROMYCIN 250 MG TABS 998997 AZITHROMYCIN Inactive CEFDINIR 300 MG CAPS by mouth twice a day CEFDINIR 300 MG CAPS 20020708 CEFDINIR Inactive AZITHROMYCIN 250 MG TABS 2 pills on day 1, then 1 pill daily x 4 days AZITHROMYCIN 250 MG TABS 101572 AZITHROMYCIN Inactive DOXYCYCLINE HYCLATE 100 MG CAP 1 cap by mouth twice daily DOXYCYCLINE HYCLATE 100 MG CAP 8759784 DOXYCYCLINE HYCLATE Inactive FUROSEMIDE 20 MG TABS 1 pill by mouth daily, for edema FUROSEMIDE 20 MG TABS 673547 FUROSEMIDE Inactive AZITHROMYCIN 250 MG TABS 2 po qd x 1 day, then 1 po qd x 4 days AZITHROMYCIN 250 MG TABS 532002 AZITHROMYCIN Inactive CEFTIN 500 MG TAB 1 twice a day CEFTIN 500 MG TAB 523050 CEFUROXIME AXETIL Inactive CEFDINIR 300 MG CAPS [...] for 2 days PREDNISONE 20 MG TAB 597761 PREDNISONE Inactive PREDNISONE 20 MG TAB take 3 tabs daily for 3 days, 2 tabs daily for 3 days, 1 tab daily for 3 days, 1/2 tab daily for 3 days PREDNISONE 20 MG TAB 424121 PREDNISONE Inactive BACTRIM DS 800-160 MG TAB 1 tab by mouth twice daily BACTRIM DS 800-160 MG TAB 494630 TRIMETHOPRIM-SULFAMETHOXAZOLE Inactive Immunizations Vaccine Administration Date Value Standard Description Seasonal influenza vaccine, injectable, containing preservative, for > 3 years old (Afluria, FluLaval, Fluzone, Fluvirin, Fluarix, Agriflu(>=18 yo)) Fluzone (>3 yrs.) [GNH353] Influenza, seasonal, injectable influenza immunization (Flu Vax) has been administered Influenza - Unspecified Formulation [CVX88] influenza virus vaccine, unspecified formulation Seasonal influenza vaccine, injectable, containing preservative, for > 3 years old (Afluria, FluLaval, Fluzone, Fluvirin, Fluarix, Agriflu(>=18 yo)) Fluzone (>3 yrs.) [ICV117] Influenza, seasonal, injectable pneumococcal immunization administered Pneumovax 23 [CVX33] pneumococcal polysaccharide vaccine, 23 valent dT (Diphtheria and Tetanus) booster given given Td(adult) unspecified formulation Boostrix (Tetanus toxoid, reduced diphtheria toxoid and acellular pertussis vaccine, adsorbed), booster Boostrix [ZCP082] tetanus toxoid, reduced diphtheria toxoid, and acellular [...] PANEL - Chemistry cholesterol, serum 166 mg/dL 179-440 2955/12/06 triglyceride, serum, fasting 86 mg/dL 30-200 HDL [...] negative Encounters Code Encounter Date Provider Facility CPT-60584 Level 3 Est. Patient 17:32:14 CDT Gab Padron MD [facility] CPT-91886 Level 3 Est. Patient 10:28:15 CDT Tisah Lambert [facility] CPT-52278 Level 3 Est. Patient 14:50:29 CDT Gab Padron MD [facility] CPT-02397 Level 3 Est. Patient 14:46:09 CDT Tisha Lambert [facility] CPT-76243 Level 4 New Patient 16:13:15 CDT Todd Callaway MD [facility] CPT-57702 Level 4 Est. Patient 13:18:33 CDT Gab Padron MD [facility] CPT-70322 Level 3 Est. Patient 15:20:50 CDT Jared Og MD [facility] CPT-21655 Level 3 Est. Patient 17:43:55 [employer] OFFICER Gab Padron MD [facility] CPT-64405 Level 3 Est. Patient 17:07:49 [employer] OFFICER Jared Og MD [facility] CPT-65478 Level 4 Est. Patient 19:55:18 [employer]TELLIGENCE OFFICER Jared Og MD [facility] CPT-65346 Level 3 Est. Patient 20:13:34 [employer] INTELLIGENCE OFFICER Jared Og MD [facility] CPT-83063 Level 4 Est. Patient 16:31:27 CDT Gab Padron MD [facility] CPT-65492 Level 2 Est. Patient 12:23:38 CDT Jared Og MD [facility] CPT-39793 Level 3 Est. Patient 11:01:51 CDT Gab Padron MD [facility] CPT-11683 Level 3 Est. Patient 15:27:02 CDT Jared Og MD [facility] [place] CPT-75918 Level 4 Est. Patient 09:25:27 CDT Gab Padron MD [facility] CPT-01876 Level 3 Est. Patient 10:29:41 CDT Rodrigo Sarah [facility]-59579 Level 4 Est. Patient 17:51:05 CDT Gab Padron MD [facility]-86156 Level 3 Est. Patient 14:18:08 CDT Gab Padron MD [facility]-24516 Level 4 Est. Patient 10:18:54 CDT Gab Padron MD [facility]-08003 Level 3 Est. Patient 11:30:07 CDT Rodrigo Sarah [facility]-16091 Level 4 Est. Patient 21:02:30 [employer]TE[employer] OFFICER Gab Padron MD [facility]-59437 Level 3 Est. Patient 11:02:19 [employer] INTELLIGENCE OFFICER Gab Padron MD [facility]-77168 Level 4 Est. Patient 22:24:31 [employer] INTELLIGENCE OFFICER Gab Padron MD [facility]-31781 Level 3 Est. Patient 18:33:46 [employer]TE[employer]IGENCE OFFICER Gab Padron MD [facility]-26593 Level 3 Est. Patient 16:19:11 CDT Yolande Lindsay MD [facility]-29629 Level 3 Est. Patient 18:59:14 CDT Yolande Lindsay MD [facility]-66718 Level 4 Est. Patient 21:29:26 CDT Yoladne Lindsay MD [facility]-18049 Level 3 Est. Patient 07:37:45 CDT Yolande Lindsay MD [facility]-44410 Level 3 Est. Patient 17:03:46 CDT Yolande Lindsay MD [facility]-35380 Level 4 Est. Patient 20:02:13 [employer]TELL[employer] OFFICER Yolande Lindsay MD [facility] CPT-86331 Level 3 Est. Patient 16:02:07 [employer] INTELLIGENCE OFFICER Alexis Ordaz MD [facility] CPT-83974 Level 3 Est. Patient 12:41:24 [employer] INTELLIGENCE OFFICER Yolande Lindsay MD [facility]-86409 Level 3 Est. Patient 15:41:20 [employer]TELLIGENCE OFFICER Yolande Lindsay MD [facility]-34880 Level 3 Est. Patient 13:20:02 [employer] INTELLIGENCE OFFICER Yolande Lindsay MD [facility] CPT-38004 Level 3 Est. Patient 15:00:38 CDT Jared Og MD [facility]-38651 Level 3 Est. Patient 10:22:32 CDT Yolande Lindsay MD [facility]-16958 Level 3 Est. Patient 17:12:58 CDT Yolande Lindsay MD [facility] CPT-27517 Level 4 Est. Patient 13:30:58 CDT Yolande Lindsay MD [facility] CPT-29471 Level 4 New Patient 09:02:42 CDT Jared Og MD [facility]-88151 Level 3 Est. Patient 08:19:07 CDT Yolande Lindsay MD [facility] CPT-50884 Level 3 Est. Patient 12:00:13 [employer]TE[employer]IGENCE OFFICER Gab Padron MD [facility] CPT-82013 Level 3 Est. Patient 16:15:23 [employer]TE[employer]IGENCE OFFICER Yolande Lindsay MD [facility] CPT-14286 Level 2 Est. Patient 19:47:15 CDT Yolande Lindsay MD [facility]-25661 Level 3 Est. Patient 21:38:31 CDT Yolande Lindsay MD [facility]-33746 Level 3 Est. Patient 10:25:12 CDT Adiel PERAZA [facility] CPT-51388 Level 4 Est. Patient 10:51:58 CDT Yolande Lindsay MD [facility]-87469 Level 3 Est. Patient 14:04:55 [employer] OFFICER Rodrigo Sarah [facility]-03067 Level 3 Est. Patient 10:46:35 [employer]TE[employer] OFFICER Rodrigo Sarah [facility]-28810 Level 3 Est. Patient 14:24:37 [employer] INTELLIGENCE OFFICER Yolande Lindsay MD [facility]-86674 Level 3 Est. Patient 17:41:58 [employer]TE[employer] OFFICER Yolande Lindsay MD [facility]-47417 Level 2 Est. Patient 22:01:41 [employer]TE[employer]IGENCE OFFICER Rodrigo Sarah [facility]-53160 Level 2 Est. Patient 22:01:11 [employer] INTELLIGENCE OFFICER oRdrigo Sarah [facility] CPT-13108 Level 3 Est. Patient 10:12:29 [employer] INTELLIGENCE OFFICER Rodrigo Sarah [facility]-08960 Level 3 Est. Patient 11:05:44 CDT Alexis Ordaz MD [facility]-97544 Level 3 Est. Patient 14:57:20 CDT Yolande Lindsay MD [facility]-31752 Level 3 Est. Patient 14:40:57 CDT Yolande Lindsay MD [facility]-85458 Level 3 Est. Patient 20:55:40 CDT Yolande Lindsay MD [facility]-98716 Level 3 Est. Patient 12:42:38 [employer]TELLIGENCE OFFICER Yolande Lindsay MD [facility]-64039 Level 3 Est. Patient 11:54:49 [employer]TELL[employer] OFFICER Des Hines MD [facility] CPT-91343 Level 3 Est. Patient 17:06:38 CDT Dewayne PERAZA [facility] Procedures Code Procedure Name Date Entry Date Standard Description CPT-J2930 Solu Medrol 125 mg (Methyl Prednisolone Sodium Succinate) 13:19:02 CDT CPT-46735 Abx/Therapy Injection 13:19:02 CDT CPT-J2930 Solu Medrol 125 mg (Methyl Prednisolone Sodium Succinate) 13:05:03 CDT CPT-67221 Hip, complete, 2-3 views - XRAY USE ONLY 17:19:04 [employer] CPT-30326 Venipuncture Draw Fee 08:37:59 [employer] OFFICER CPT-47595 Liver Profile - LAB USE ONLY 08:37:59 [employer] OFFICER CPT-37311 Lipid - LAB USE ONLY 08:37:58 [employer] OFFICER CPT-15880 First Vx - Ix admin via ID IM or jet injects without counseling by physician 11:52:31 CDT CPT-37609 Fluzone Preservative Free Intramuscular Suspension 11:52 :31 CDT CPT-58483 Foot, left, comp min 3V - XRAY USE ONLY 09:24:54 CDT CPT-63547 Abd single AP View - XRAY USE ONLY 11:16:17 CDT CPT-59232 T spine AP/ Lat - XRAY USE ONLY 09:34:21 CDT CPT-48021 Chest 2V Frontal and Lat - XRAY USE ONLY 10:48:51 CDT CPT-73094 LS spine comp w obliq 13:28:00 [employer] OFFIC[employer] CPT-J1040 Depo Medrol 80 mg (Methyl Prednisolone Acetate) 10:51: 28 [employer] OFFICER CPT-J1100 Decadron 8mg (Dexamethasone) 10:51:28 [employer]TE[employer] OFFICER CPT-47340 Abx/Therapy Injection 10:51:28 [employer]TELL[employer] OFFICER CPT-J1100 Decadron 8mg (Dexamethasone) 21:02:30 [employer]TELL[employer] OFFICER CPT-J1040 Depo Medrol 80 mg (Methyl Prednisolone Acetate) 21:02: 30 [employer]TELL[employer] OFFICER [id number] Event Monitor - MC Transmission 09:12:32 CDT 08/06 [id number] Event Monitor - MC review and interp 09:12:32 CDT [id number] Event Monitor - MC recording 09:12:32 CDT CPT-81785 EKG Trac and Interp 16:50:22 CDT CPT-J1030 Depo Medrol 40 mg (Methyl Prednisolone Acetate) 17:05: 54 CDT CPT-J1100 Decadron 4mg (Dexamethasone) 17:05:54 CDT CPT-13060 Abx/Therapy Injection 17:05:54 CDT CPT-J1100 Decadron 4mg (Dexamethasone) 16:55:28 CDT CPT-J1030 Depo Medrol 40 mg (Methyl Prednisolone Acetate) 16:55: 28 CDT CPT-24905 Ankle Complete - Min 3V 15:58:50 CDT CPT-73230 Knee 3V 15:58:50 CDT CPT-97901 Hip comp min 2V 15:58:50 CDT CPT-J2270 Morphine Sulfate 10 mg 14:25:44 [employer] CPT-J2550 Phenergan 12.5 mg (Promethazine) 14:25:44 [employer] CPT-06403 Abx/Therapy Injection 14:25:44 [employer] CPT-J2550 Phenergan 12.5 mg (Promethazine) 14:08:03 [employer] CPT-J2270 Morphine Sulfate 10 mg 14:08:03 [employer] CPT-54217 Bladder Scan 15:00:38 CDT CPT-TCMM Transitional Care Mgmt-Moderate 09:52:22 CDT CPT-J1030 Depo Medrol 40 mg (Methyl Prednisolone Acetate) 10:55: 18 CDT CPT-J1100 Decadron 4mg (Dexamethasone) 10:55:18 CDT CPT-62839 Abx/Therapy Injection 10:55:18 CDT CPT-J1030 Depo Medrol 40 mg (Methyl Prednisolone Acetate) 10:22: 32 CDT CPT-J1100 Decadron 4mg (Dexamethasone) 10:22:32 CDT CPT-82948 Postop F/U Visit 14:37:13 CDT CPT-93070 Ankle Complete - Min 3V 17:11:58 CDT CPT-81823 Foot comp min 3V 17:11:58 CDT CPT-04110 Bladder Scan 09:56:58 CDT CPT-17835 Postop F/U Visit 09:56:58 CDT CPT-08830 Cystoscopy 09:02:42 CDT CPT-76968 Bladder Scan 09:02:42 CDT CPT-37480 Abd single AP View 16:00:35 CDT CPT-78516 Administration single or combination vaccine inc oral 10 :15:43 CDT CPT-58709 Influenza split virus > age 3 10:15:43 CDT CPT-67365 Nail Avulsion 09:24:57 CDT CPT-OV Office Visit 11:15:41 CDT CPT-96594 Abx/Therapy Injection 10:51:30 CDT CPT-J3301 Kenalog 40 mg (Triamcinolone Acetonide) 10:25:12 CDT CPT-J1100 Decadron 4mg (Dexamethasone) 10:25:12 CDT CPT-22346 Anoscopy diagnostic 10:36:12 CDT CPT-OV Office Visit 15:34:31 CDT CPT-21061 Abx/Therapy Injection 08:21:15 [employer] CPT-J1885 Toradol 60 mg (Ketorolac) 10:46:35 [employer] CPT-OV Office Visit 19:51:16 [employer] CPT-93785 Spec Collection and Handling Fee 14:34:18 [employer] CPT-PV Prev. Care Visit 14:19:18 [employer] CPT-75268 Postop F/U Visit 14:47:51 [employer] CPT-98437 Postop F/U Visit 15:15:14 [employer] CPT-66438 Postop F/U Visit 14:41:43 CDT CPT-77229 Postop F/U Visit 15:47:46 CDT CPT-OV Office Visit 15:27:23 CDT CPT-OV Office Visit 17:20:34 CDT CPT-13968 Abx/Therapy Injection 15:05:57 CDT CPT-J1100 Decadron 8mg (Dexamethasone) 14:44:57 CDT CPT-J1040 Depo Medrol 80 mg (Methyl Prednisolone Acetate) 14:44: 57 CDT CPT-JTINJ Joint Injection 10:17:37 CDT CPT-22749 Administration 2+ single or combination vaccines inc oral 13:01:46 [employer] CPT-64181 Administration single or combination vaccine inc oral 13 :01:46 [employer] CPT-90289 Pneumovax 13:01:46 [employer] CPT-05675 Influenza split virus > age 3 13:01:46 [employer] CPT-77003 Administration single or combination vaccine inc oral 08 :56:49 CDT CPT-20729 Tdap 08:56:49 CDT
--- OUTSIDE RECORDS SUMMARY | 2017-03-21 21:47 | XMS REPORT | Clinical Summary ---
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 Jillina Frazellilian DOCUMENTATION ENGINEER 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 Anemia 285.9 Active Gab Padron MD Anemia, unspecified Conjunctivitis 372.30 Active Jillnacho Sarah APRN Conjunctivitis, unspecified Sinusitis 473.9 Active Silvestrellina Frazell DOCUMENTATION ENGINEER Unspecified sinusitis (chronic) Nonspecific syndrome suggestive of viral illness 079.99 Active Jillina Frazell DOCUMENTATION ENGINEER Unspecified viral infection Laryngitis 464.00 Active Jillina Frazell DOCUMENTATION ENGINEER Acute laryngitis without mention of obstruction Abdominal [...] Flank pain, left 789.09 Active Jillina Frazell DOCUMENTATION ENGINEER Abdominal pain, other specified site; multiple sites Abdominal pain, generalized 789.07 Active Jillina Farshadzell DOCUMENTATION ENGINEER Abdominal pain, generalized Back pain, thoracic region, left 724.1 Active Jillina Frazell DOCUMENTATION ENGINEER Pain in thoracic spine Abdominal pain, left [...] acute ICD-461.0 Inactive Yolande Lindsay MD PhD LONG-TERM (CURRENT) USE OF OTHER MEDICATIONS ICD-V58.69 Inactive Yolande Lindsay MD PhD Sinusitis ICD-461.9 [...] 1/2 tab daily for 2 days PREDNISONE 31918713002 No Longer Active Gab Padron MD Active ZOFRAN ODT 4 MG TBDP 1 po q6hr PRN Nausea ONDANSETRON 01198348383 Active Jillina Frazell DOCUMENTATION ENGINEER Active IBUPROFEN 600 MG TAB 1 tablet by mouth every 6 hours for 7 days, then 1 tablet every 6 hours as needed. Take with food IBUPROFEN 25633615807 Active Jillina Frazell DOCUMENTATION ENGINEER Active BACTRIM DS 800-160 MG TAB 1 tab by mouth twice daily TRIMETHOPRIM-SULFAMETHOXAZOLE 76725008101 No Longer Active Gab Padron MD Active ADVAIR DISKUS 250-50 MCG/DOSE AEPB 1 puff BID FLUTICASONE- SALMETEROL 67730194277 Active Rodrigo Sarah APRN Active LEVOTHYROXINE SODIUM 75 MCG TABS Take 1 tab daily LEVOTHYROXINE SODIUM 43058755546 No Longer Active Mariana FLEMING Active SYNTHROID 88 MCG ORAL TABS Take one by mouth daily LEVOTHYROXINE SODIUM 63237356301 Active Mariana FLEMING Active CHERATUSSIN AC 100-10 MG/5ML SYRP 1 tsp by mouth every 4 hours as needed for cough GUAIFENESIN-CODEINE 29142440885 No Longer Active Gab Padron MD Active POLYTRIM 58652-9.1 UNIT/ML-% SOLN 1 gtt to affected eye q3h x 7 days POLYMYXIN B-TRIMETHOPRIM 45501727588 No Longer Active Gab Padron MD Active FLUTICASONE PROPIONATE 50 MCG/ACT SUSP 1 to 2 sprays each nostril daily 04/21 FLUTICASONE PROPIONATE 46424175756 No Longer Active Gab Padron MD Active TRILEPTAL 600 MG TABS Take one 1 tablet in Am and 1 tablet at night OXCARBAZEPINE 04480562085 Active Gab Padron MD Active CEFDINIR 300 MG CAPS 1 po BID x 10 days CEFDINIR 62176621580 No Longer Active Rodrigo Sarah APRN Active CEFTIN 500 MG TAB 1 twice a day CEFUROXIME AXETIL 93559462710 No Longer Active Gab Padron MD Active AZITHROMYCIN 250 MG TABS 2 po qd x 1 day, then 1 po qd x 4 days AZITHROMYCIN 37606712172 No Longer Active Rodrigo Sarah APRN Active CLARITIN 10 MG TAB 1 tablet by mouth daily as needed for allergies LORATADINE 88438069756 Active Rodrigo Sarah APRN Active OXYCODONE HCL 5 MG ORAL CAPS 1 TAB PO Q HS OXYCODONE HCL 09446011778 No Longer Active Rodrigo Sarah APRN Active NIASPAN 500 MG ORAL CR-TABS 1 pill nightly x 1 week, then 2 pills nightly x 1 week, then 3 pills nightly x 1 week, then 4 pills nightly NIACIN (ANTIHYPERLIPIDEMIC) 75487176765 No Longer Active Rodrigo Sarah APRN Active NIACIN 500 MG TABS 1 pill by mouth nightly x 1 week, then 2 pills x 1 week, then 3 pills x 1 week, then 4 pills nightly - take after evening meal, with applesauce or an apple NIACIN 51891588482 No Longer Active Yolande Lindsay MD PhD Active FISH OIL 1000 MG CAPS 3 pills daily OMEGA-3 FATTY ACIDS 45362423731 Active Yolande Lindsay MD PhD Active TRIAMCINOLONE ACETONIDE 0.1 % CREA apply bid sparingly to rash TRIAMCINOLONE ACETONIDE 37276541874 Active Yolande Lindsay MD PhD Active FUROSEMIDE 20 MG TAB 1 tablet by mouth daily FUROSEMIDE 96465567757 Active Tisha Lambert APRN Active LISINOPRIL 20 MG ORAL TABS 1 tab by mouth daily LISINOPRIL 43989408053 Active Gab Padron MD Active FUROSEMIDE 20 MG TABS 1 pill by mouth daily, for edema FUROSEMIDE 35772222342 No Longer Active Yolande Lindsay MD PhD Active ATORVASTATIN CALCIUM 10 MG TABS 1 pill by mouth daily, for cholesterol 09/06 ATORVASTATIN CALCIUM 34581588931 Active Gab Padron MD Active CALCIUM 600+D PLUS MINERALS 600-400 MG-UNIT ORAL CHEW 1 tab by mouth daily CALCIUM CARBONATE-VIT D-MIN 55165669546 No Longer Active Yolande Lindsay MD PhD Active CYCLOBENZAPRINE HCL 10 MG TABS 1 tablet by mouth three times daily as needed for muscle spasm/pain CYCLOBENZAPRINE HCL 44967551208 Active Yolande Lindsay MD PhD Active ONDANSETRON 4 MG TBDP 1 q4h PRN nausea ONDANSETRON 87818046469 Active Yolande Lindsay MD PhD Active ADULT ASPIRIN EC LOW STRENGTH 81 MG TBEC Take 1 tablet by mouth daily 2014 ASPIRIN 03107339796 No Longer Active Yolande Lindsay MD PhD Active ZOFRAN ODT 4 MG TBDP 1 pill dissolved by mouth every 4 hours if needed for nausea ONDANSETRON 69662763215 No Longer Active Yolande Lindsay MD PhD Active CEFTIN 500 MG TAB 1 twice a day CEFUROXIME AXETIL 19109759591 No Longer Active Yolande Lindsay MD PhD Active ALBUTEROL SULFATE 0.083 % NEBU SOLN one vial per nebulizer every 4-6 hours as needed ALBUTEROL SULFATE 07827328985 No Longer Active Alexis Ordaz MD Active DOXYCYCLINE HYCLATE 100 MG CAP 1 cap by mouth twice daily DOXYCYCLINE HYCLATE 52871827032 No Longer Active Yolande Lindsay MD PhD Active CYCLOBENZAPRINE HCL 10 MG TABS 1/2 - 1 tab by mouth three times daily if needed for spasms/pain CYCLOBENZAPRINE HCL 55988611877 No Longer Active Yolande Lindsay MD PhD Active AZITHROMYCIN 250 MG TABS 2 pills on day 1, then 1 pill daily x 4 days AZITHROMYCIN 23125247652 No Longer Active Yolande Lindasy MD PhD Active XOPENEX 1.25 MG/3ML NEBU 1 neb every 4 hours if needed for cough/congestion LEVALBUTEROL HCL 09176112785 No Longer Active Yolande Lindsay MD PhD Active DOXYCYCLINE HYCLATE 100 MG TAB 1 tab twice a day for 14 days 2013 DOXYCYCLINE HYCLATE 64544175659 No Longer Active Yolande Lindsay MD PhD Active PREVACID 30 MG CPDR Take 1 tablet by mouth daily-PRN LANSOPRAZOLE 17079179720 No Longer Active Yolande Lindsay MD PhD Active PA VITAMIN D-3 2000 UNIT CAPS 1 CAP PO DAILY CHOLECALCIFEROL 26653006051 No Longer Active Yolande Lindsay MD PhD Active CEFDINIR 300 MG CAPS by mouth twice a day CEFDINIR 45119450456 No Longer Active Gab Padron MD Active TOPAMAX 50 MG TABS 1 PO twice daily TOPIRAMATE 76871428272 Active Yolande Lindsay MD PhD Active AZITHROMYCIN 250 MG TABS 2 po qd x 1 day, then 1 po qd x 4 days AZITHROMYCIN 10908053182 No Longer Active Yolande Lindsay MD PhD Active DICLOFENAC SODIUM 75 MG TBEC 1 tablet by q 12 hours PRN headaches DICLOFENAC SODIUM 70967813813 No Longer Active Yolande Lindsay MD PhD Active FLONASE 50 MCG/ACT SUSP 1 spray each nostril am and hs FLUTICASONE PROPIONATE 13162440972 No Longer Active Todd Callaway MD Active ANUSOL-HC 25 MG SUPPOSITORY 1 rectally twice a day as needed for hemorrhoids HYDROCORTISONE JAYDEN (RECTAL) 37446694607 No Longer Active Yolande Lindsay MD PhD Active ANUSOL-HC 25 MG SUPPOSITORY 1 suppository rectally each evening as needed for anal fissure HYDROCORTISONE JAYDEN (RECTAL) 49491332838 No Longer Active LONNIE Iglesias Active VALIUM 5 MG TAB 1 po 30 minutes prior to your MRI DIAZEPAM 09434037734 No Longer Active LONNIE Iglesias Active METHOCARBAMOL 750 MG TABS 1 PO QID PRN METHOCARBAMOL 97568550124 No Longer Active Daphne Wetzel DOCUMENTATION ENGINEER Active NITROSTAT 0.4 MG SUBL as directed NITROGLYCERIN 17498353483 No Longer Active Rodrigo Sarah APRN Active ROBAXIN-750 750 MG TABS 2 four times a day for 3 days as needed for muscle spasm, then 1 four times a day as needed METHOCARBAMOL 82606780601 No Longer Active Rodrigo Sarah APRN Active HYDROCODONE-ACETAMINOPHEN 5-325 MG TABS 1 q 4-6 hrs prn HYDROCODONE-ACETAMINOPHEN 44059749360 No Longer Active Rordigo Sarah APRN Active VERAPAMIL HCL CR 180 MG CR-TABS TAKE 1 TAB DAILY VERAPAMIL HCL 37409786692 No Longer Active Yolande Lindsay MD PhD Active BACTRIM DS 800-160 MG TAB 1 tab by mouth twice daily TRIMETHOPRIM-SULFAMETHOXAZOLE 04551779631 No Longer Active Yolande Lindsay MD PhD Active NEXIUM 40 MG PACK 1 by mouth daily ESOMEPRAZOLE MAGNESIUM 29721896998 No Longer Active Des Hines MD Active EPIPEN 2-CHARLETTE 0.3 MG/0.3ML OMARI as need for allergic reaction EPINEPHRINE 38855489387 Active Yolande Lindsay MD PhD Active NEXIUM 40 MG CPDR 1 PO Q D DAY ESOMEPRAZOLE MAGNESIUM 79907243281 No Longer Active Sadia Perry RN Active NEXIUM 40 MG PACK 1 by mouth daily NEXIUM 40 MG PACK ESOMEPRAZOLE MAGNESIUM Inactive VERAPAMIL HCL CR 180 MG CR-TABS TAKE 1 TAB DAILY VERAPAMIL HCL CR 180 MG CR-TABS VERAPAMIL HCL Inactive HYDROCODONE-ACETAMINOPHEN 5-325 MG TABS 1 q 4-6 hrs prn HYDROCODONE-ACETAMINOPHEN 5-325 MG TABS 395544 HYDROCODONE-ACETAMINOPHEN Inactive ROBAXIN-750 750 MG TABS 2 four times a day for 3 days as needed for muscle spasm, then 1 four times a day as needed ROBAXIN-750 750 MG TABS 563876 METHOCARBAMOL Inactive NITROSTAT 0.4 MG SUBL as directed NITROSTAT 0.4 MG SUBL 861927 NITROGLYCERIN Inactive METHOCARBAMOL 750 MG TABS 1 PO QID PRN METHOCARBAMOL 750 MG TABS 073371 METHOCARBAMOL Inactive VALIUM 5 MG TAB 1 po 30 minutes prior to your MRI VALIUM 5 MG TAB 322125 DIAZEPAM Inactive ANUSOL-HC 25 MG SUPPOSITORY 1 suppository rectally each evening as needed for anal fissure ANUSOL-HC 25 MG SUPPOSITORY 6348131 HYDROCORTISONE JAYDEN (RECTAL) Inactive ANUSOL-HC 25 MG SUPPOSITORY 1 rectally twice a day as needed for hemorrhoids ANUSOL-HC 25 MG SUPPOSITORY 2533860 HYDROCORTISONE JAYDEN (RECTAL) Inactive FLONASE 50 MCG/ACT SUSP 1 spray each nostril am and hs FLONASE 50 MCG/ACT SUSP FLUTICASONE PROPIONATE Inactive DICLOFENAC SODIUM 75 MG TBEC 1 tablet by q 12 hours PRN headaches DICLOFENAC SODIUM 75 MG TBEC 768323 DICLOFENAC SODIUM Inactive PA VITAMIN D-3 2000 UNIT CAPS 1 CAP PO DAILY PA VITAMIN D-3 2000 UNIT CAPS CHOLECALCIFEROL Inactive PREVACID 30 MG CPDR Take 1 tablet by mouth daily-PRN PREVACID 30 MG CPDR 558962 LANSOPRAZOLE Inactive DOXYCYCLINE HYCLATE 100 MG TAB 1 tab twice a day for 14 days 2013 DOXYCYCLINE HYCLATE 100 MG TAB 6455966 DOXYCYCLINE HYCLATE Inactive XOPENEX 1.25 MG/3ML NEBU 1 neb every 4 hours if needed for cough/congestion XOPENEX 1.25 MG/3ML NEBU 507204 LEVALBUTEROL HCL Inactive CYCLOBENZAPRINE HCL 10 MG TABS 1/2 - 1 tab by mouth three times daily if needed for spasms/pain CYCLOBENZAPRINE HCL 10 MG TABS 874302 CYCLOBENZAPRINE HCL Inactive ALBUTEROL SULFATE 0.083 % NEBU SOLN one vial per nebulizer every 4-6 hours as needed ALBUTEROL SULFATE 0.083 % NEBU SOLN 095583 ALBUTEROL SULFATE Inactive CEFTIN 500 MG TAB 1 twice a day CEFTIN 500 MG TAB 616923 CEFUROXIME AXETIL Inactive ZOFRAN ODT 4 MG TBDP 1 pill dissolved by mouth every 4 hours if needed for nausea ZOFRAN ODT 4 MG TBDP 085905 ONDANSETRON Inactive ADULT ASPIRIN EC LOW STRENGTH 81 MG TBEC Take 1 tablet by mouth daily 2014 ADULT ASPIRIN EC LOW STRENGTH 81 MG TBEC 317942 ASPIRIN Inactive CALCIUM 600+D PLUS MINERALS 600-400 [...] or an apple NIACIN 500 MG TABS 299780 NIACIN Inactive NIASPAN 500 MG ORAL CR-TABS 1 pill nightly x 1 week, then 2 pills nightly x 1 week, then 3 pills nightly x 1 week, then 4 pills nightly NIASPAN 500 MG ORAL CR-TABS NIACIN (ANTIHYPERLIPIDEMIC) Inactive OXYCODONE HCL 5 MG ORAL CAPS 1 TAB PO Q HS OXYCODONE HCL 5 MG ORAL CAPS 0478653 OXYCODONE HCL Inactive FLUTICASONE PROPIONATE 50 MCG/ACT SUSP 1 to 2 sprays each nostril daily 04/21 FLUTICASONE PROPIONATE 50 MCG/ACT SUSP 3498665 FLUTICASONE PROPIONATE Inactive POLYTRIM 92360-7.1 UNIT/ML-% SOLN 1 gtt to affected eye q3h x 7 days POLYTRIM 03924-6.1 UNIT/ML-% SOLN 895382 POLYMYXIN B- TRIMETHOPRIM Inactive CHERATUSSIN AC 100-10 MG/5ML SYRP 1 tsp by mouth every 4 hours as needed for cough CHERATUSSIN AC 100-10 MG/5ML SYRP 934193 GUAIFENESIN-CODEINE Inactive LEVOTHYROXINE SODIUM 75 MCG TABS Take 1 tab daily LEVOTHYROXINE SODIUM 75 MCG TABS 521923 LEVOTHYROXINE SODIUM Inactive BACTRIM DS 800-160 MG TAB 1 tab by mouth twice daily BACTRIM DS 800-160 MG TAB 191237 TRIMETHOPRIM-SULFAMETHOXAZOLE Inactive AZITHROMYCIN 250 MG TABS 2 po qd x 1 day, then 1 po qd x 4 days AZITHROMYCIN 250 MG TABS 4549219 AZITHROMYCIN Inactive CEFDINIR 300 MG CAPS by mouth twice a day CEFDINIR 300 MG CAPS 20020708 CEFDINIR Inactive AZITHROMYCIN 250 MG TABS 2 pills on day 1, then 1 pill daily x 4 days AZITHROMYCIN 250 MG TABS 3825137 AZITHROMYCIN Inactive DOXYCYCLINE HYCLATE 100 MG CAP 1 cap by mouth twice daily DOXYCYCLINE HYCLATE 100 MG CAP 4354592 DOXYCYCLINE HYCLATE Inactive FUROSEMIDE 20 MG TABS 1 pill by mouth daily, for edema FUROSEMIDE 20 MG TABS 473084 FUROSEMIDE Inactive AZITHROMYCIN 250 MG TABS 2 po qd x 1 day, then 1 po qd x 4 days AZITHROMYCIN 250 MG TABS 5149726 AZITHROMYCIN Inactive CEFTIN 500 MG TAB 1 twice a day CEFTIN 500 MG TAB 961164 CEFUROXIME AXETIL Inactive CEFDINIR 300 MG CAPS 1 po BID x 10 days CEFDINIR 300 MG CAPS 20020708 CEFDINIR Inactive BACTRIM DS 800-160 MG TAB 1 tab by mouth twice daily BACTRIM DS 800-160 MG TAB 118776 TRIMETHOPRIM-SULFAMETHOXAZOLE Inactive PREDNISONE 20 MG TAB 2 tabs daily for 3 days, 1 tab daily for 3 days, 1/2 tab daily for 2 days PREDNISONE 20 MG TAB 590114 PREDNISONE Inactive Immunizations Vaccine Administration Date Value Standard Description Seasonal influenza vaccine, injectable, containing preservative, for > 3 years old (Afluria, FluLaval, Fluzone, Fluvirin, Fluarix, Agriflu(>=18 yo)) Fluzone (>3 yrs.) [NSH538] Influenza, seasonal, injectable influenza immunization (Flu Vax) has been administered Influenza - Unspecified Formulation [CVX88] influenza virus vaccine, unspecified formulation Seasonal influenza vaccine, injectable, containing preservative, for > 3 years old (Afluria, FluLaval, Fluzone, Fluvirin, Fluarix, Agriflu(>=18 yo)) Fluzone (>3 yrs.) [MSE141] Influenza, seasonal, injectable pneumococcal immunization administered Pneumovax 23 [CVX33] pneumococcal polysaccharide vaccine, 23 valent dT (Diphtheria and Tetanus) booster given given Td(adult) unspecified formulation Boostrix (Tetanus toxoid, reduced diphtheria toxoid and acellular pertussis vaccine, adsorbed), booster Boostrix [ODY616] tetanus toxoid, reduced diphtheria toxoid, and acellular [...] Panel - Chemistry sodium, serum 142 mmol/L 577-275 6948/06/30 potassium, serum 4.4 mmol/L 3.5-5.2 chloride, serum [...] Rate - Chemistry sodium, serum 139 mmol/L 454-733 8047/03/24 carbon dioxide, venous blood 22.4 mmol/L 21.0-32.0 [...] ... - Chemistry sodium, serum 143 mmol/L 815-137 8702/05/02 carbon dioxide, venous blood 25.6 mmol/L 21.0-32.0 [...] dipstick Negative Negative sodium, serum 142 mmol/L 103-374 1471/07/18 carbon dioxide, venous blood 27.8 mmol/L 21.0-32.0 [...] negative Encounters Code Encounter Date Provider Facility CPT-35076 Level 4 Est. Patient 16:31:27 CDT Gab Padron MD [facility] CPT-09894 Level 2 Est. Patient 12:23:38 CDT Jared Og MD [facility] CPT-80364 Level 3 Est. Patient 11:01:51 CDT Gab Padron MD [facility] CPT-70377 Level 3 Est. Patient 15:27:02 CDT Jared Og MD [facility] CPT-49883 Level 4 Est. Patient 09:25:27 CDT Gab Padron MD [facility] CPT-63706 Level 3 Est. Patient 10:29:41 CDT Rodrigo Sarah [facility] CPT-65583 Level 4 Est. Patient 17:51:05 CDT Gab Padron MD [facility] CPT-79966 Level 3 Est. Patient 14:18:08 CDT Gab Padron MD [facility] CPT-77604 Level 4 Est. Patient 10:18:54 CDT Gab Padron MD [facility] CPT-46216 Level 3 Est. Patient 11:30:07 CDT Rodrigo Sarah [facility] CPT-77661 Level 4 Est. Patient 21:02:30 HAND BOOKBINDER Gab Padron MD [facility] CPT-39010 Level 3 Est. Patient 11:02:19 HAND BOOKBINDER Gab Padron MD [facility] CPT-61622 Level 4 Est. Patient 22:24:31 HAND BOOKBINDER Gab Padron MD [facility] CPT-00864 Level 3 Est. Patient 18:33:46 HAND BOOKBINDER Gab Padron MD [facility] CPT-21871 Level 3 Est. Patient 16:19:11 CDT Yolande Lindsay MD [facility]-36368 Level 3 Est. Patient 18:59:14 CDT Yolande Lindsay MD [facility]-48198 Level 4 Est. Patient 21:29:26 CDT Yolande Lindsay MD [facility]-39479 Level 3 Est. Patient 07:37:45 CDT Yolande Lindsay MD [facility]-32890 Level 3 Est. Patient 17:03:46 CDT Yolande Lindsay MD [facility]-47074 Level 4 Est. Patient 20:02:13 HAND BOOKBINDER Yolande Lindsay MD [facility]-69047 Level 3 Est. Patient 16:02:07 HAND BOOKBINDER Alexis Ordaz MD [facility]-86526 Level 3 Est. Patient 12:41:24 HAND BOOKBINDER Yolande Lindsay MD [facility]-73356 Level 3 Est. Patient 15:41:20 HAND BOOKBINDER Yolande Lindsay MD [facility]-90469 Level 3 Est. Patient 13:20:02 HAND BOOKBINDER Yolande Lindsay MD [facility]-79020 Level 3 Est. Patient 15:00:38 CDT Jared Og MD [facility]-55221 Level 3 Est. Patient 10:22:32 CDT Yolande Lindsay MD [facility]-02347 Level 3 Est. Patient 17:12:58 CDT Yolande Lindsay MD [facility]-95199 Level 4 Est. Patient 13:30:58 CDT Yolande Lindsay MD [facility]-60106 Level 4 New Patient 09:02:42 CDT Jared Og MD [facility]-11276 Level 3 Est. Patient 08:19:07 CDT Yolande Lindsay MD [facility]-37632 Level 3 Est. Patient 12:00:13 HAND BOOKBINDER Gab Padron MD [facility]-11467 Level 3 Est. Patient 16:15:23 HAND BOOKBINDER Yolande Lindsay MD [facility]94841 Level 2 Est. Patient 19:47:15 CDT Yolande Lindsay MD [facility]00483 Level 3 Est. Patient 21:38:31 CDT Yolande Lindsay MD [facility]12492 Level 3 Est. Patient 10:25:12 CDT Adiel PERAZA [facility]-66199 Level 4 Est. Patient 10:51:58 CDT Yolande Lindsay MD [facility]-09629 Level 3 Est. Patient 14:04:55 HAND BOOKBINDER Rodrigo Sarah [facility]-86710 Level 3 Est. Patient 10:46:35 HAND BOOKBINDER Rodrigo Sarah [facility]-25535 Level 3 Est. Patient 14:24:37 HAND BOOKBINDER Yolande Lindsay MD [facility]-54174 Level 3 Est. Patient 17:41:58 HAND BOOKBINDER Yolande Lindsay MD [facility]33990 Level 2 Est. Patient 22:01:41 HAND BOOKBINDER Rodrigo Sarah [facility]-88926 Level 2 Est. Patient 22:01:11 HAND BOOKBINDER Rodrigo Sarah [facility]-79536 Level 3 Est. Patient 10:12:29 HAND BOOKBINDER Rodrigo Sarah [facility]-59422 Level 3 Est. Patient 11:05:44 CDT Alexis Ordaz MD [facility] CPT-49013 Level 3 Est. Patient 14:57:20 CDT Yolande Lindsay MD [facility] CPT-59209 Level 3 Est. Patient 14:40:57 CDT Yolande Lindsay MD [facility] CPT-60162 Level 3 Est. Patient 20:55:40 CDT Yolande Lindsay MD [facility] CPT-30618 Level 3 Est. Patient 12:42:38 HAND BOOKBINDER Yolande Lindsay MD [facility] CPT-06063 Level 3 Est. Patient 11:54:49 HAND BOOKBINDER Des Hines MD [facility] CPT-89121 Level 3 Est. Patient 17:06:38 CDT Dewayne PERAZA [facility] Procedures Code Procedure Name Date Entry Date Standard Description CPT-24239 First Vx - Ix admin via ID IM or jet injects without counseling by physician 11:52:31 CDT CPT-16086 Fluzone Preservative Free Intramuscular Suspension 11:52 :31 CDT CPT-74824 Foot, left, comp min 3V - XRAY USE ONLY 09:24:54 CDT CPT-94660 Abd single AP View - XRAY USE ONLY 11:16:17 CDT CPT-36004 T spine AP/ Lat - XRAY USE ONLY 09:34:21 CDT CPT-37267 Chest 2V Frontal and Lat - XRAY USE ONLY 10:48:51 CDT CPT-37423 LS spine comp w obliq 13:28:00 HAND BOOKBINDER CPT-J1040 Depo Medrol 80 mg (Methyl Prednisolone Acetate) 10:51: 28 HAND BOOKBINDER CPT-J1100 Decadron 8mg (Dexamethasone) 10:51:28 HAND BOOKBINDER CPT-74564 Abx/Therapy Injection 10:51:28 HAND BOOKBINDER CPT-J1100 Decadron 8mg (Dexamethasone) 21:02:30 HAND BOOKBINDER CPT-J1040 Depo Medrol 80 mg (Methyl Prednisolone Acetate) 21:02: 30 HAND BOOKBINDER [id number] Event Monitor - MC Transmission 09:12:32 CDT 08/06 [id number] Event Monitor - MC review and interp 09:12:32 CDT [id number] Event Monitor - MC recording 09:12:32 CDT CPT-82548 EKG Trac and Interp 16:50:22 CDT CPT-J1030 Depo Medrol 40 mg (Methyl Prednisolone Acetate) 17:05: 54 CDT CPT-J1100 Decadron 4mg (Dexamethasone) 17:05:54 CDT CPT-37925 Abx/Therapy Injection 17:05:54 CDT CPT-J1100 Decadron 4mg (Dexamethasone) 16:55:28 CDT CPT-J1030 Depo Medrol 40 mg (Methyl Prednisolone Acetate) 16:55: 28 CDT CPT-33425 Ankle Complete - Min 3V 15:58:50 CDT CPT-68098 Knee 3V 15:58:50 CDT CPT-78720 Hip comp min 2V 15:58:50 CDT CPT-J2270 Morphine Sulfate 10 mg 14:25:44 HAND BOOKBINDER CPT-J2550 Phenergan 12.5 mg (Promethazine) 14:25:44 HAND BOOKBINDER CPT-61648 Abx/Therapy Injection 14:25:44 HAND BOOKBINDER CPT-J2550 Phenergan 12.5 mg (Promethazine) 14:08:03 HAND BOOKBINDER CPT-J2270 Morphine Sulfate 10 mg 14:08:03 HAND BOOKBINDER CPT-58456 Bladder Scan 15:00:38 CDT CPT-TCMM Transitional Care Mgmt-Moderate 09:52:22 CDT CPT-J1030 Depo Medrol 40 mg (Methyl Prednisolone Acetate) 10:55: 18 CDT CPT-J1100 Decadron 4mg (Dexamethasone) 10:55:18 CDT CPT-40948 Abx/Therapy Injection 10:55:18 CDT CPT-J1030 Depo Medrol 40 mg (Methyl Prednisolone Acetate) 10:22: 32 CDT CPT-J1100 Decadron 4mg (Dexamethasone) 10:22:32 CDT CPT-63067 Postop F/U Visit 14:37:13 CDT CPT-96268 Ankle Complete - Min 3V 17:11:58 CDT CPT-70798 Foot comp min 3V 17:11:58 CDT CPT-52552 Bladder Scan 09:56:58 CDT CPT-84913 Postop F/U Visit 09:56:58 CDT CPT-56562 Cystoscopy 09:02:42 CDT CPT-11989 Bladder Scan 09:02:42 CDT CPT-13960 Abd single AP View 16:00:35 CDT CPT-18692 Administration single or combination vaccine inc oral 10 :15:43 CDT CPT-15056 Influenza split virus > age 3 10:15:43 CDT CPT-78479 Nail Avulsion 09:24:57 CDT CPT-OV Office Visit 11:15:41 CDT CPT-18256 Abx/Therapy Injection 10:51:30 CDT CPT-J3301 Kenalog 40 mg (Triamcinolone Acetonide) 10:25:12 CDT CPT-J1100 Decadron 4mg (Dexamethasone) 10:25:12 CDT CPT-62982 Anoscopy diagnostic 10:36:12 CDT CPT-OV Office Visit 15:34:31 CDT CPT-85486 Abx/Therapy Injection 08:21:15 HAND BOOKBINDER CPT-J1885 Toradol 60 mg (Ketorolac) 10:46:35 HAND BOOKBINDER CPT-OV Office Visit 19:51:16 HAND BOOKBINDER CPT-15395 Spec Collection and Handling Fee 14:34:18 HAND BOOKBINDER CPT-PV Prev. Care Visit 14:19:18 HAND BOOKBINDER CPT-99841 Postop F/U Visit 14:47:51 HAND BOOKBINDER CPT-46558 Postop F/U Visit 15:15:14 HAND BOOKBINDER CPT-43753 Postop F/U Visit 14:41:43 CDT CPT-34034 Postop F/U Visit 15:47:46 CDT CPT-OV Office Visit 15:27:23 CDT CPT-OV Office Visit 17:20:34 CDT CPT-58365 Abx/Therapy Injection 15:05:57 CDT CPT-J1100 Decadron 8mg (Dexamethasone) 14:44:57 CDT CPT-J1040 Depo Medrol 80 mg (Methyl Prednisolone Acetate) 14:44: 57 CDT CPT-JTINJ Joint Injection 10:17:37 CDT CPT-04342 Administration 2+ single or combination vaccines inc oral 13:01:46 HAND BOOKBINDER CPT-53626 Administration single or combination vaccine inc oral 13 :01:46 HAND BOOKBINDER CPT-74521 Pneumovax 13:01:46 HAND BOOKBINDER CPT-85227 Influenza split virus > age 3 13:01:46 HAND BOOKBINDER CPT-51991 Administration single or combination vaccine inc oral 08 :56:49 CDT CPT-20502 Tdap 08:56:49 CDT
--- OUTSIDE RECORDS SUMMARY | 2017-03-21 21:49 | XMS REPORT ---
Author Author [facility] Medical Staff Organization [facility] Address [address] [place] [id number] Phone [phone] Care Team Providers Care Skein Straightener Name Role Phone EVELYN SPEARS MD PP [phone] Summary purpose TRANSITION OF CARE AUTO GENERATION [...] Code Type Description Date Performed Performing Physician [id number] CPT-4 PT EVALUATION 05-06-2015 EULOGIO ERICKSON Functional status No functional or [...]
--- OUTSIDE RECORDS SUMMARY | 2017-03-21 21:49 | XMS REPORT | Clinical Summary ---
Author Author Admin, MARGRET Organization [employer] Address Unknown Phone Unavailable Allergies, Adverse Reactions, Alerts Allergy Name Reaction Description Start Date Severity Status Provider VALENTIN Critical Active Rodrigo Montemayorl [employer] CHLORHEXIDINE GLUCONATE tongue and gums swollen Critical Active Hoa Kabaford RMA NORFLEX Rash Critical Active Rowenaina Farshadzell [employer] TRAZODONE HCL sees things Critical Active [...] PhD Routine gynecological examination HYPOTHYROIDISM 244.9 Active oRdrigo Sarah APRN Unspecified hypothyroidism MUSCLE PAIN 729.1 [...] of 412 Active Hoa Otto [facility] Old myocardial infarction Pelvic pain [...] Lindsay MD PhD HEMATOCHEZIA ICD-578.1 Inactive Yolande Lindsya MD PhD HEMORRHOIDS, INTERNAL, WITH BLEEDING ICD-455.2 [...] Lindsay MD PhD URI ICD-465.9 Inactive Yolande Linsday MD PhD 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 Inactive Yolande [...] 1 tab by mouth twice daily TRIMETHOPRIM-SULFAMETHOXAZOLE 81072450512 Active Tisha Lambert APRN Active ADVAIR DISKUS 250-50 MCG/DOSE AEPB 1 puff BID FLUTICASONE-SALMETEROL 10511561414 No Longer Active Todd Clalaway MD Active ONDANSETRON 4 MG TBDP 1 q4h PRN nausea ONDANSETRON 18775047520 No Longer Active LONNIE Iglesias Active FISH OIL 1000 MG CAPS 3 pills daily OMEGA-3 FATTY ACIDS 32881930491 No Longer Active LONNIE Iglesias Active CETIRIZINE HCL 10 MG ORAL TABS 1 po qd PRN Allergies CETIRIZINE HCL 01398401592 Active Gab Padron MD Active CLARITIN 10 MG TAB 1 tablet by mouth daily as needed for allergies LORATADINE 67135020484 No Longer Active Gab Padron MD Active PREDNISONE 20 MG TAB take 3 tabs daily for 3 days, 2 tabs daily for 3 days, 1 tab daily for 3 days, 1/2 tab daily for 3 days PREDNISONE 77017073935 No Longer Active Tisha Lambert APRN Active TRAMADOL HCL 50 MG TABS 1 tab po every 6 hrs prn pain TRAMADOL HCL 34480545016 Active Gab Padron MD Active PREDNISONE 20 MG TAB 2 tabs daily for 3 days, 1 tab daily for 3 days, 1/2 tab daily for 2 days PREDNISONE 52901020893 No Longer Active Gab Padron MD Active ZOFRAN ODT 4 MG TBDP 1 po q6hr PRN Nausea ONDANSETRON 63417661312 Active Gab Padron MD Active IBUPROFEN 600 MG TAB 1 tablet by mouth every 6 hours for 7 days, then 1 tablet every 6 hours as needed. Take with food IBUPROFEN 69085919251 Active Rodrigo Sarah APRN Active BACTRIM DS 800-160 MG TAB 1 tab by mouth twice daily TRIMETHOPRIM-SULFAMETHOXAZOLE 58267740768 No Longer Active Gab Padron MD Active LEVOTHYROXINE SODIUM 75 MCG TABS Take 1 tab daily LEVOTHYROXINE SODIUM 03767560519 No Longer Active Mariana Cuadra [facility] Active SYNTHROID 88 MCG ORAL TABS Take one by mouth daily LEVOTHYROXINE SODIUM 68970480793 Active Gab Padron MD Active CHERATUSSIN AC 100-10 MG/5ML SYRP 1 tsp by mouth every 4 hours as needed for cough GUAIFENESIN-CODEINE 69816973826 No Longer Active Gab Padron MD Active POLYTRIM 40450-3.1 UNIT/ML-% SOLN 1 gtt to affected eye q3h x 7 days POLYMYXIN B-TRIMETHOPRIM 00704469555 No Longer Active Gab Padron MD Active FLUTICASONE PROPIONATE 50 MCG/ACT SUSP 1 to 2 sprays each nostril daily 04/21 FLUTICASONE PROPIONATE 68840785127 No Longer Active Gab Padron MD Active TRILEPTAL 600 MG TABS Take one 1 tablet in Am and 1 tablet at night OXCARBAZEPINE 72693006322 Active Gab Padron MD Active CEFDINIR 300 MG CAPS 1 po BID x 10 days CEFDINIR 04729972036 No Longer Active Rodrigo Sarah APRN Active CEFTIN 500 MG TAB 1 twice a day CEFUROXIME AXETIL 75835765342 No Longer Active Gab Padron MD Active AZITHROMYCIN 250 MG TABS 2 po qd x 1 day, then 1 po qd x 4 days AZITHROMYCIN 02546700470 No Longer Active Rodrigo Sarah APRN Active OXYCODONE HCL 5 MG ORAL CAPS 1 TAB PO Q HS OXYCODONE HCL 42760649248 No Longer Active Rodrigo Sarah APRN Active NIASPAN 500 MG ORAL CR-TABS 1 pill nightly x 1 week, then 2 pills nightly x 1 week, then 3 pills nightly x 1 week, then 4 pills nightly NIACIN (ANTIHYPERLIPIDEMIC) 78222875111 No Longer Active Rodrigo Sarah APRN Active NIACIN 500 MG TABS 1 pill by mouth nightly x 1 week, then 2 pills x 1 week, then 3 pills x 1 week, then 4 pills nightly - take after evening meal, with applesauce or an apple NIACIN 02958948761 No Longer Active Yolande Lindsay MD PhD Active TRIAMCINOLONE ACETONIDE 0.1 % CREA apply bid sparingly to rash TRIAMCINOLONE ACETONIDE 15156850212 Active Yolande Lindsay MD PhD Active FUROSEMIDE 20 MG TAB 1 tablet by mouth daily FUROSEMIDE 67953828190 Active Gab Padron MD Active LISINOPRIL 20 MG ORAL TABS 1 tab by mouth daily LISINOPRIL 80450514529 Active Gab Padron MD Active FUROSEMIDE 20 MG TABS 1 pill by mouth daily, for edema FUROSEMIDE 84159620673 No Longer Active Yolande Lindsay MD PhD Active ATORVASTATIN CALCIUM 10 MG TABS 1 pill by mouth daily, for cholesterol 09/06 ATORVASTATIN CALCIUM 79466188187 Active Gab Padron MD Active CALCIUM 600+D PLUS MINERALS 600-400 MG-UNIT ORAL CHEW 1 tab by mouth daily CALCIUM CARBONATE-VIT D-MIN 13594725645 No Longer Active Yolande Lindsay MD PhD Active CYCLOBENZAPRINE HCL 10 MG TABS 1 tablet by mouth three times daily as needed for muscle spasm/pain CYCLOBENZAPRINE HCL 83852527930 Active Yolande Lindsay MD PhD Active ADULT ASPIRIN EC LOW STRENGTH 81 MG TBEC Take 1 tablet by mouth daily 2014 ASPIRIN 40943259284 No Longer Active Yolande Lindsay MD PhD Active ZOFRAN ODT 4 MG TBDP 1 pill dissolved by mouth every 4 hours if needed for nausea ONDANSETRON 66662359192 No Longer Active Yolande Lindsay MD PhD Active CEFTIN 500 MG TAB 1 twice a day CEFUROXIME AXETIL 27949046196 No Longer Active Yolande Lindsay MD PhD Active ALBUTEROL SULFATE 0.083 % NEBU SOLN one vial per nebulizer every 4-6 hours as needed ALBUTEROL SULFATE 33544638248 No Longer Active Alexis Ordaz MD Active DOXYCYCLINE HYCLATE 100 MG CAP 1 cap by mouth twice daily DOXYCYCLINE HYCLATE 30555220469 No Longer Active Yolande Lindsay MD PhD Active CYCLOBENZAPRINE HCL 10 MG TABS 1/2 - 1 tab by mouth three times daily if needed for spasms/pain CYCLOBENZAPRINE HCL 91248797976 No Longer Active Yolande Lindsay MD PhD Active AZITHROMYCIN 250 MG TABS 2 pills on day 1, then 1 pill daily x 4 days AZITHROMYCIN 81619230247 No Longer Active Yolande Lindsay MD PhD Active XOPENEX 1.25 MG/3ML NEBU 1 neb every 4 hours if needed for cough/congestion LEVALBUTEROL HCL 87150095228 No Longer Active Yolande Lindsay MD PhD Active DOXYCYCLINE HYCLATE 100 MG TAB 1 tab twice a day for 14 days 2013 DOXYCYCLINE HYCLATE 79978751924 No Longer Active Yolande Lindsay MD PhD Active PREVACID 30 MG CPDR Take 1 tablet by mouth daily-PRN LANSOPRAZOLE 64718642052 No Longer Active Yolande Lindsay MD PhD Active PA VITAMIN D-3 2000 UNIT CAPS 1 CAP PO DAILY CHOLECALCIFEROL 38947900325 No Longer Active Yolande Lindsay MD PhD Active CEFDINIR 300 MG CAPS by mouth twice a day CEFDINIR 59324028660 No Longer Active Gab Padron MD Active TOPAMAX 50 MG TABS 1 PO twice daily TOPIRAMATE 10719682770 Active Yolande Lindsay MD PhD Active AZITHROMYCIN 250 MG TABS 2 po qd x 1 day, then 1 po qd x 4 days AZITHROMYCIN 10265947058 No Longer Active Yolande Lindsay MD PhD Active DICLOFENAC SODIUM 75 MG TBEC 1 tablet by q 12 hours PRN headaches DICLOFENAC SODIUM 67021637525 No Longer Active Yolande Lindsay MD PhD Active FLONASE 50 MCG/ACT SUSP 1 spray each nostril am and hs FLUTICASONE PROPIONATE 55925437120 No Longer Active Todd Callaway MD Active ANUSOL-HC 25 MG SUPPOSITORY 1 rectally twice a day as needed for hemorrhoids HYDROCORTISONE JAYDEN (RECTAL) 63649599492 No Longer Active Yolande Lindsay MD PhD Active ANUSOL-HC 25 MG SUPPOSITORY 1 suppository rectally each evening as needed for anal fissure HYDROCORTISONE JAYDEN (RECTAL) 88934745420 No Longer Active LONNIE Iglesias Active VALIUM 5 MG TAB 1 po 30 minutes prior to your MRI DIAZEPAM 46635520197 No Longer Active LONNIE Iglesias Active METHOCARBAMOL 750 MG TABS 1 PO QID PRN METHOCARBAMOL 34335183557 No Longer Active Daphne Wetzel APRN Active NITROSTAT 0.4 MG SUBL as directed NITROGLYCERIN 79614401131 No Longer Active Rodrigo Sarah APRN Active ROBAXIN-750 750 MG TABS 2 four times a day for 3 days as needed for muscle spasm, then 1 four times a day as needed METHOCARBAMOL 44325767394 No Longer Active Rodrigo Sarah APRN Active HYDROCODONE-ACETAMINOPHEN 5-325 MG TABS 1 q 4-6 hrs prn HYDROCODONE-ACETAMINOPHEN 80831819249 No Longer Active Rodrigo Sarah [employer] Active VERAPAMIL HCL CR 180 MG CR-TABS TAKE 1 TAB DAILY VERAPAMIL HCL 34912809127 No Longer Active Yolande Lindsay MD PhD Active BACTRIM DS 800-160 MG TAB 1 tab by mouth twice daily TRIMETHOPRIM-SULFAMETHOXAZOLE 35539735324 No Longer Active Yolande Lindsay MD PhD Active NEXIUM 40 MG PACK 1 by mouth daily ESOMEPRAZOLE MAGNESIUM 89857979977 No Longer Active Des Hines MD Active EPIPEN 2-CHARLETTE 0.3 MG/0.3ML OMARI as need for allergic reaction EPINEPHRINE 40705465566 Active Yolande Lindsay MD PhD Active NEXIUM 40 MG CPDR 1 PO Q D DAY ESOMEPRAZOLE MAGNESIUM 87926296382 No Longer Active Sadia Perry RN Active NEXIUM 40 MG PACK 1 by mouth daily NEXIUM 40 MG PACK ESOMEPRAZOLE MAGNESIUM Inactive VERAPAMIL HCL CR 180 MG CR-TABS TAKE 1 TAB DAILY VERAPAMIL HCL CR 180 MG CR-TABS VERAPAMIL HCL Inactive HYDROCODONE-ACETAMINOPHEN 5-325 MG TABS 1 q 4-6 hrs prn HYDROCODONE-ACETAMINOPHEN 5-325 MG TABS 452510 HYDROCODONE-ACETAMINOPHEN Inactive ROBAXIN-750 750 MG TABS 2 four times a day for 3 days as needed for muscle spasm, then 1 four times a day as needed ROBAXIN-750 750 MG TABS 157790 METHOCARBAMOL Inactive NITROSTAT 0.4 MG SUBL as directed NITROSTAT 0.4 MG SUBL 216361 NITROGLYCERIN Inactive METHOCARBAMOL 750 MG TABS 1 PO QID PRN METHOCARBAMOL 750 MG TABS 776932 METHOCARBAMOL Inactive VALIUM 5 MG TAB 1 po 30 minutes prior to your MRI VALIUM 5 MG TAB 828406 DIAZEPAM Inactive ANUSOL-HC 25 MG SUPPOSITORY 1 suppository rectally each evening as needed for anal fissure ANUSOL-HC 25 MG SUPPOSITORY 0998748 HYDROCORTISONE JAYDEN (RECTAL) Inactive ANUSOL-HC 25 MG SUPPOSITORY 1 rectally twice a day as needed for hemorrhoids ANUSOL-HC 25 MG SUPPOSITORY 9511879 HYDROCORTISONE JAYDEN (RECTAL) Inactive FLONASE 50 MCG/ACT SUSP 1 spray each nostril am and hs FLONASE 50 MCG/ACT SUSP 3241565 FLUTICASONE PROPIONATE Inactive DICLOFENAC SODIUM 75 MG TBEC 1 tablet by q 12 hours PRN headaches DICLOFENAC SODIUM 75 MG TBEC 446753 DICLOFENAC SODIUM Inactive PA VITAMIN D-3 2000 UNIT CAPS 1 CAP PO DAILY PA VITAMIN D-3 2000 UNIT CAPS CHOLECALCIFEROL Inactive PREVACID 30 MG CPDR Take 1 tablet by mouth daily-PRN PREVACID 30 MG CPDR 633289 LANSOPRAZOLE Inactive DOXYCYCLINE HYCLATE 100 MG TAB 1 tab twice a day for 14 days 2013 DOXYCYCLINE HYCLATE 100 MG TAB 4519441 DOXYCYCLINE HYCLATE Inactive XOPENEX 1.25 MG/3ML NEBU 1 neb every 4 hours if needed for cough/congestion XOPENEX 1.25 MG/3ML NEBU 021862 LEVALBUTEROL HCL Inactive CYCLOBENZAPRINE HCL 10 MG TABS 1/2 - 1 tab by mouth three times daily if needed for spasms/pain CYCLOBENZAPRINE HCL 10 MG TABS 851559 CYCLOBENZAPRINE HCL Inactive ALBUTEROL SULFATE 0.083 % NEBU SOLN one vial per nebulizer every 4-6 hours as needed ALBUTEROL SULFATE 0.083 % NEBU SOLN 560034 ALBUTEROL SULFATE Inactive CEFTIN 500 MG TAB 1 twice a day CEFTIN 500 MG TAB 392680 CEFUROXIME AXETIL Inactive ZOFRAN ODT 4 MG TBDP 1 pill dissolved by mouth every 4 hours if needed for nausea ZOFRAN ODT 4 MG TBDP 953928 ONDANSETRON Inactive ADULT ASPIRIN EC LOW STRENGTH 81 MG TBEC Take 1 tablet by mouth daily 2014 ADULT ASPIRIN EC LOW STRENGTH 81 MG TBEC 639235 ASPIRIN Inactive CALCIUM 600+D PLUS MINERALS 600-400 [...] or an apple NIACIN 500 MG TABS 684022 NIACIN Inactive NIASPAN 500 MG ORAL CR-TABS 1 pill nightly x 1 week, then 2 pills nightly x 1 week, then 3 pills nightly x 1 week, then 4 pills nightly NIASPAN 500 MG ORAL CR-TABS NIACIN (ANTIHYPERLIPIDEMIC) Inactive OXYCODONE HCL 5 MG ORAL CAPS 1 TAB PO Q HS OXYCODONE HCL 5 MG ORAL CAPS 3544122 OXYCODONE HCL Inactive FLUTICASONE PROPIONATE 50 MCG/ACT SUSP 1 to 2 sprays each nostril daily 04/21 FLUTICASONE PROPIONATE 50 MCG/ACT SUSP 7585788 FLUTICASONE PROPIONATE Inactive POLYTRIM 70551-6.1 UNIT/ML-% SOLN 1 gtt to affected eye q3h x 7 days POLYTRIM 53730-5.1 UNIT/ML-% SOLN 886860 POLYMYXIN B- TRIMETHOPRIM Inactive CHERATUSSIN AC 100-10 MG/5ML SYRP 1 tsp by mouth every 4 hours as needed for cough CHERATUSSIN AC 100-10 MG/5ML SYRP 527128 GUAIFENESIN-CODEINE Inactive LEVOTHYROXINE SODIUM 75 MCG TABS Take 1 tab daily LEVOTHYROXINE SODIUM 75 MCG TABS 174150 LEVOTHYROXINE SODIUM Inactive CLARITIN 10 MG TAB 1 tablet by mouth daily as needed for allergies CLARITIN 10 MG TAB 700165 LORATADINE Inactive FISH OIL 1000 MG CAPS 3 pills daily FISH OIL 1000 MG CAPS OMEGA-3 FATTY ACIDS Inactive ONDANSETRON 4 MG TBDP 1 q4h PRN nausea ONDANSETRON 4 MG TBDP 258982 ONDANSETRON Inactive ADVAIR DISKUS 250-50 MCG/DOSE AEPB 1 puff BID ADVAIR DISKUS 250-50 MCG/DOSE AEPB FLUTICASONE-SALMETEROL Inactive BACTRIM DS 800-160 MG TAB 1 tab by mouth twice daily BACTRIM DS 800-160 MG TAB 306929 TRIMETHOPRIM-SULFAMETHOXAZOLE Inactive AZITHROMYCIN 250 MG TABS 2 po qd x 1 day, then 1 po qd x 4 days AZITHROMYCIN 250 MG TABS 0324947 AZITHROMYCIN Inactive CEFDINIR 300 MG CAPS by mouth twice a day CEFDINIR 300 MG CAPS 522649 CEFDINIR Inactive AZITHROMYCIN 250 MG TABS 2 pills on day 1, then 1 pill daily x 4 days AZITHROMYCIN 250 MG TABS 6265573 AZITHROMYCIN Inactive DOXYCYCLINE HYCLATE 100 MG CAP 1 cap by mouth twice daily DOXYCYCLINE HYCLATE 100 MG CAP 9587948 DOXYCYCLINE HYCLATE Inactive FUROSEMIDE 20 MG TABS 1 pill by mouth daily, for edema FUROSEMIDE 20 MG TABS 210707 FUROSEMIDE Inactive AZITHROMYCIN 250 MG TABS 2 po qd x 1 day, then 1 po qd x 4 days AZITHROMYCIN 250 MG TABS 8379647 AZITHROMYCIN Inactive CEFTIN 500 MG TAB 1 twice a day CEFTIN 500 MG TAB 734878 CEFUROXIME AXETIL Inactive CEFDINIR 300 MG CAPS 1 po BID x 10 days CEFDINIR 300 MG CAPS 395181 CEFDINIR Inactive BACTRIM DS 800-160 MG TAB 1 tab by mouth twice daily BACTRIM DS 800-160 MG TAB 197237 TRIMETHOPRIM-SULFAMETHOXAZOLE Inactive PREDNISONE 20 MG TAB 2 tabs daily for 3 days, 1 tab daily for 3 days, 1/2 tab daily for 2 days PREDNISONE 20 MG TAB 578520 PREDNISONE Inactive PREDNISONE 20 MG TAB take 3 tabs daily for 3 days, 2 tabs daily for 3 days, 1 tab daily for 3 days, 1/2 tab daily for 3 days PREDNISONE 20 MG TAB 086882 PREDNISONE Inactive Immunizations Vaccine Administration Date Value Standard Description Seasonal influenza vaccine, injectable, containing preservative, for > 3 years old (Afluria, FluLaval, Fluzone, Fluvirin, Fluarix, Agriflu(>=18 yo)) Fluzone (>3 yrs.) [SGO304] Influenza, seasonal, injectable influenza immunization (Flu Vax) has been administered Influenza - Unspecified Formulation [CVX88] influenza virus vaccine, unspecified formulation Seasonal influenza vaccine, injectable, containing preservative, for > 3 years old (Afluria, FluLaval, Fluzone, Fluvirin, Fluarix, Agriflu(>=18 yo)) Fluzone (>3 yrs.) [WLY591] Influenza, seasonal, injectable pneumococcal immunization administered Pneumovax 23 [CVX33] pneumococcal polysaccharide vaccine, 23 valent dT (Diphtheria and Tetanus) booster given given Td(adult) unspecified formulation Boostrix (Tetanus toxoid, reduced diphtheria toxoid and acellular pertussis vaccine, adsorbed), booster Boostrix [KDB659] tetanus toxoid, reduced diphtheria toxoid, and acellular [...] PANEL - Chemistry cholesterol, serum 166 mg/dL 300-026 9284/12/06 triglyceride, serum, fasting 86 mg/dL 30-200 HDL [...] Negative mg/dL Negative sodium, serum 142 mmol/L 327-233 6677/07/18 carbon dioxide, venous blood 27.8 mmol/L 21.0-32.0 [...] negative Encounters Code Encounter Date Provider Facility CPT-96791 Level 3 Est. Patient 14:46:09 CDT Tisha Lambert APRN [facility] CPT-20234 Level 4 New Patient 16:13:15 CDT Todd Callaway MD [facility] CPT-86770 Level 4 Est. Patient 13:18:33 CDT Gab Padron MD [facility] CPT-53877 Level 3 Est. Patient 15:20:50 CDT Jared Og MD [facility] CPT-93049 Level 3 Est. Patient 17:43:55 REPORT CHECKER Gab Padron MD [facility] CPT-14203 Level 3 Est. Patient 17:07:49 REPORT CHECKER Jared Og MD [facility] CPT-81226 Level 4 Est. Patient 19:55:18 REPORT CHECKER Jared Og MD [facility] CPT-17317 Level 3 Est. Patient 20:13:34 REPORT CHECKER Jared Og MD [facility] CPT-11794 Level 4 Est. Patient 16:31:27 CDT Gab Padron MD [facility] CPT-81862 Level 2 Est. Patient 12:23:38 CDT Jared Og MD [facility] CPT-74842 Level 3 Est. Patient 11:01:51 CDT Gab Padron MD [facility] CPT-03631 Level 3 Est. Patient 15:27:02 CDT Jared Og MD [facility] [place] CPT-29279 Level 4 Est. Patient 09:25:27 CDT Gab Padron MD [facility] CPT-00502 Level 3 Est. Patient 10:29:41 CDT Rodrigo Sarah [facility] CPT-21173 Level 4 Est. Patient 17:51:05 CDT Gab Padron MD [facility] CPT-17172 Level 3 Est. Patient 14:18:08 CDT Gab Padron MD [facility] CPT-17533 Level 4 Est. Patient 10:18:54 CDT Gab Padron MD [facility] CPT-34197 Level 3 Est. Patient 11:30:07 CDT Rodrigo Sarah [facility] CPT-86078 Level 4 Est. Patient 21:02:30 REPORT CHECKER Gab Padron MD [facility]-16070 Level 3 Est. Patient 11:02:19 REPORT CHECKER Gab Padron MD [facility]-51540 Level 4 Est. Patient 22:24:31 REPORT CHECKER Gab Padron MD [facility]-15226 Level 3 Est. Patient 18:33:46 REPORT CHECKER Gab Padron MD [facility]-05565 Level 3 Est. Patient 16:19:11 CDT Yolande Lindsay MD [facility]-30485 Level 3 Est. Patient 18:59:14 CDT Yolande Lindsay MD [facility]-65971 Level 4 Est. Patient 21:29:26 CDT Yolande Lindsay MD [facility]-89962 Level 3 Est. Patient 07:37:45 CDT Yolande Lindsay MD [facility]-15102 Level 3 Est. Patient 17:03:46 CDT Yolande Lindsay MD [facility]-34577 Level 4 Est. Patient 20:02:13 REPORT CHECKER Yolande Lindsay MD [facility]-01618 Level 3 Est. Patient 16:02:07 REPORT CHECKER Alexis Ordaz MD [facility]-79527 Level 3 Est. Patient 12:41:24 REPORT CHECKER Yolande Lindsay MD PhD [facility] CPT-67627 Level 3 Est. Patient 15:41:20 REPORT CHECKER Yolande Lindsay MD [facility]-53531 Level 3 Est. Patient 13:20:02 REPORT CHECKER Yolande Lindsay MD [facility]-77131 Level 3 Est. Patient 15:00:38 CDT Jared Og MD [facility]-30509 Level 3 Est. Patient 10:22:32 CDT Yolande Lindsay MD [facility]-67156 Level 3 Est. Patient 17:12:58 CDT Yolande Lindsay MD [facility]-95858 Level 4 Est. Patient 13:30:58 CDT Yolande Lindsya MD [facility]-33982 Level 4 New Patient 09:02:42 CDT Jared Og MD [facility]-89991 Level 3 Est. Patient 08:19:07 CDT Yolande Lindsay MD [facility]-34806 Level 3 Est. Patient 12:00:13 REPORT CHECKER Gab Padron MD [facility]-43319 Level 3 Est. Patient 16:15:23 REPORT CHECKER Yolande Lindsay MD [facility]-68441 Level 2 Est. Patient 19:47:15 CDT Yolande Lindsay MD [facility]-99828 Level 3 Est. Patient 21:38:31 CDT Yolande Lindsay MD [facility]-80187 Level 3 Est. Patient 10:25:12 CDT Adiel PERAZA [facility]-05135 Level 4 Est. Patient 10:51:58 CDT Yolande Lindsay MD [facility]-09247 Level 3 Est. Patient 14:04:55 REPORT CHECKER Rodrigo Sarah [facility]-20683 Level 3 Est. Patient 10:46:35 REPORT CHECKER Rodrigo Sarah [facility]-89660 Level 3 Est. Patient 14:24:37 REPORT CHECKER Yolande Lindsay MD [facility]-29496 Level 3 Est. Patient 17:41:58 REPORT CHECKER Yolande Lindsay MD PhD [facility] CPT-99826 Level 2 Est. Patient 22:01:41 REPORT CHECKER Rodrigo Sarah [facility] CPT-48503 Level 2 Est. Patient 22:01:11 REPORT CHECKER Rodrigo Sarah [facility] CPT-17240 Level 3 Est. Patient 10:12:29 REPORT CHECKER Rodrigo Sarah [facility] CPT-86823 Level 3 Est. Patient 11:05:44 CDT Alexis Ordaz MD [facility] CPT-38291 Level 3 Est. Patient 14:57:20 CDT Yolande Lindsay MD [facility]-44541 Level 3 Est. Patient 14:40:57 CDT Yolande Lindsay MD [facility]-10024 Level 3 Est. Patient 20:55:40 CDT Yolande Lindsay MD [facility] CPT-95888 Level 3 Est. Patient 12:42:38 REPORT CHECKER Yolande Lindsay MD [facility]-24820 Level 3 Est. Patient 11:54:49 REPORT CHECKER Des Hines MD [facility] CPT-38850 Level 3 Est. Patient 17:06:38 CDT Dewayne PERAZA [facility] Procedures Code Procedure Name Date Entry Date Standard Description CPT-J2930 Solu Medrol 125 mg (Methyl Prednisolone Sodium Succinate) 13:19:02 CDT CPT-21312 Abx/Therapy Injection 13:19:02 CDT CPT-J2930 Solu Medrol 125 mg (Methyl Prednisolone Sodium Succinate) 13:05:03 CDT CPT-00202 Hip, complete, 2-3 views - XRAY USE ONLY 17:19:04 REPORT CHECKER CPT-08378 Venipuncture Draw Fee 08:37:59 REPORT CHECKER CPT-63416 Liver Profile - LAB USE ONLY 08:37:59 REPORT CHECKER CPT-47196 Lipid - LAB USE ONLY 08:37:58 REPORT CHECKER CPT-02858 First Vx - Ix admin via ID IM or jet injects without counseling by physician 11:52:31 CDT CPT-40235 Fluzone Preservative Free Intramuscular Suspension 11:52 :31 CDT CPT-18231 Foot, left, comp min 3V - XRAY USE ONLY 09:24:54 CDT CPT-27187 Abd single AP View - XRAY USE ONLY 11:16:17 CDT CPT-20357 T spine AP/ Lat - XRAY USE ONLY 09:34:21 CDT CPT-28872 Chest 2V Frontal and Lat - XRAY USE ONLY 10:48:51 CDT CPT-12832 LS spine comp w obliq 13:28:00 REPORT CHECKER CPT-J1040 Depo Medrol 80 mg (Methyl Prednisolone Acetate) 10:51: 28 REPORT CHECKER CPT-J1100 Decadron 8mg (Dexamethasone) 10:51:28 REPORT CHECKER CPT-40981 Abx/Therapy Injection 10:51:28 REPORT CHECKER CPT-J1100 Decadron 8mg (Dexamethasone) 21:02:30 REPORT CHECKER CPT-J1040 Depo Medrol 80 mg (Methyl Prednisolone Acetate) 21:02: 30 REPORT CHECKER [id number] Event Monitor - MC Transmission 09:12:32 CDT 08/06 [id number] Event Monitor - MC review and interp 09:12:32 CDT [id number] Event Monitor - MC recording 09:12:32 CDT CPT-71183 EKG Trac and Interp 16:50:22 CDT CPT-J1030 Depo Medrol 40 mg (Methyl Prednisolone Acetate) 17:05: 54 CDT CPT-J1100 Decadron 4mg (Dexamethasone) 17:05:54 CDT CPT-36007 Abx/Therapy Injection 17:05:54 CDT CPT-J1100 Decadron 4mg (Dexamethasone) 16:55:28 CDT CPT-J1030 Depo Medrol 40 mg (Methyl Prednisolone Acetate) 16:55: 28 CDT CPT-37155 Ankle Complete - Min 3V 15:58:50 CDT CPT-35047 Knee 3V 15:58:50 CDT CPT-38066 Hip comp min 2V 15:58:50 CDT CPT-J2270 Morphine Sulfate 10 mg 14:25:44 REPORT CHECKER CPT-J2550 Phenergan 12.5 mg (Promethazine) 14:25:44 REPORT CHECKER CPT-31513 Abx/Therapy Injection 14:25:44 REPORT CHECKER CPT-J2550 Phenergan 12.5 mg (Promethazine) 14:08:03 REPORT CHECKER CPT-J2270 Morphine Sulfate 10 mg 14:08:03 REPORT CHECKER CPT-13347 Bladder Scan 15:00:38 CDT CPT-TCMM Transitional Care Mgmt-Moderate 09:52:22 CDT CPT-J1030 Depo Medrol 40 mg (Methyl Prednisolone Acetate) 10:55: 18 CDT CPT-J1100 Decadron 4mg (Dexamethasone) 10:55:18 CDT CPT-12194 Abx/Therapy Injection 10:55:18 CDT CPT-J1030 Depo Medrol 40 mg (Methyl Prednisolone Acetate) 10:22: 32 CDT CPT-J1100 Decadron 4mg (Dexamethasone) 10:22:32 CDT CPT-68224 Postop F/U Visit 14:37:13 CDT CPT-89758 Ankle Complete - Min 3V 17:11:58 CDT CPT-02014 Foot comp min 3V 17:11:58 CDT CPT-64621 Bladder Scan 09:56:58 CDT CPT-56602 Postop F/U Visit 09:56:58 CDT CPT-71987 Cystoscopy 09:02:42 CDT CPT-57788 Bladder Scan 09:02:42 CDT CPT-83979 Abd single AP View 16:00:35 CDT CPT-78262 Administration single or combination vaccine inc oral 10 :15:43 CDT CPT-34589 Influenza split virus > age 3 10:15:43 CDT CPT-29162 Nail Avulsion 09:24:57 CDT CPT-OV Office Visit 11:15:41 CDT CPT-31846 Abx/Therapy Injection 10:51:30 CDT CPT-J3301 Kenalog 40 mg (Triamcinolone Acetonide) 10:25:12 CDT CPT-J1100 Decadron 4mg (Dexamethasone) 10:25:12 CDT CPT-58289 Anoscopy diagnostic 10:36:12 CDT CPT-OV Office Visit 15:34:31 CDT CPT-28998 Abx/Therapy Injection 08:21:15 REPORT CHECKER CPT-J1885 Toradol 60 mg (Ketorolac) 10:46:35 REPORT CHECKER CPT-OV Office Visit 19:51:16 REPORT CHECKER CPT-81915 Spec Collection and Handling Fee 14:34:18 REPORT CHECKER CPT-PV Prev. Care Visit 14:19:18 REPORT CHECKER CPT-08906 Postop F/U Visit 14:47:51 REPORT CHECKER CPT-57328 Postop F/U Visit 15:15:14 REPORT CHECKER CPT-78377 Postop F/U Visit 14:41:43 CDT CPT-21803 Postop F/U Visit 15:47:46 CDT CPT-OV Office Visit 15:27:23 CDT CPT-OV Office Visit 17:20:34 CDT CPT-08396 Abx/Therapy Injection 15:05:57 CDT CPT-J1100 Decadron 8mg (Dexamethasone) 14:44:57 CDT CPT-J1040 Depo Medrol 80 mg (Methyl Prednisolone Acetate) 14:44: 57 CDT CPT-JTINJ Joint Injection 10:17:37 CDT CPT-54977 Administration 2+ single or combination vaccines inc oral 13:01:46 REPORT CHECKER CPT-80468 Administration single or combination vaccine inc oral 13 :01:46 REPORT CHECKER CPT-25578 Pneumovax 13:01:46 REPORT CHECKER CPT-08037 Influenza split virus > age 3 13:01:46 REPORT CHECKER CPT-18601 Administration single or combination vaccine inc oral 08 :56:49 CDT CPT-04601 Tdap 08:56:49 CDT
--- OUTSIDE RECORDS SUMMARY | 2017-03-21 21:52 | XMS REPORT | Clinical Summary ---
Author Author Admin, MARGRET Organization [employer] Address Unknown Phone Unavailable Allergies, Adverse Reactions, Alerts Allergy Name Reaction Description Start Date Severity Status Provider VALENTIN Critical Active Rodrigo Montemayorl ASSISTANT COMMUNITY DIRECTOR CHLORHEXIDINE GLUCONATE tongue and gums swollen Critical Active Hoa Kabaford RMA NORFLEX Rash Critical Active Rowenaina Farshadzell ASSISTANT COMMUNITY DIRECTOR TRAZODONE HCL sees things Critical Active Dewayne PERAAZ PENICILLIN rash Critical Active Dewayne PERAZA Conditions [...] of 412 Active Hoa Otto [facility] Old myocardial infarction Pelvic pain 789.09 Active Yolande Lindsay MD PhD Abdominal pain, other specified site; multiple sites Edema 782.3 Active Yolande Lindsay MD PhD Edema Rash 782.1 Active Yolande Lindsay MD PhD Rash and other nonspecific skin eruption Back pain, lumbar 724.2 Active Gab Padron MD Lumbago Cough 786.2 Active Jillina Tyrel ASSISTANT COMMUNITY DIRECTOR Cough 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 Jillina Frazellilian ZAPATAN 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 Anemia 285.9 Active Gab Padron MD Anemia, unspecified Conjunctivitis 372.30 Active Jillnacho Sarah APRN Conjunctivitis, unspecified Sinusitis 473.9 Active Jillina Frazell ASSISTANT COMMUNITY DIRECTOR Unspecified sinusitis (chronic) Nonspecific syndrome suggestive of viral illness 079.99 Active Jillina Siml ASSISTANT COMMUNITY DIRECTOR Unspecified viral infection Laryngitis 464.00 Active Jillina Farshadzell ASSISTANT COMMUNITY DIRECTOR Acute laryngitis without mention of obstruction [...] Abdominal pain, generalized 789.07 Active Silvestrellina Siml ASSISTANT COMMUNITY DIRECTOR Abdominal pain, generalized Back pain, thoracic region, left 724.1 Active Jillina Farshadzell ASSISTANT COMMUNITY DIRECTOR Pain in thoracic spine Abdominal pain, [...] REACTION, ACUTE ICD-995.3 Inactive Alexis Ordaz MD FOOT PAIN, RIGHT ICD-729.5 Inactive Yolande Lindsay MD PhD BACK PAIN ICD-724.5 Inactive Yolande Lindsay MD PhD FREQUENCY, URINARY ICD-788.41 Inactive Yolande Lindsay MD PhD AFTERCARE FLW SURG TEETH ORL CAV&DIGESTV SYS NEC ICD-V58.75 04/25 Inactive Yolande Lindsay MD PhD LONG-TERM (CURRENT) USE OF OTHER MEDICATIONS ICD-V58.69 Inactive Yolande Linsday MD PhD ROUTINE GYNECOLOGICAL EXAMINATION ICD-V72.31 Inactive Yolande Lindsay MD PhD MUSCLE PAIN ICD-729.1 Inactive Yolande Lindsay MD PhD GERD ICD-530.81 Inactive Todd Callaway MD AFTERCARE FOLLOW SURGERY MUSCULOSKEL SYSTEM NEC ICD-V58.78 02/06 Inactive Todd Callaway MD HEADACHE ICD-784.0 Inactive Yolande Lindsay MD PhD [...] 1/2 tab daily for 2 days PREDNISONE 02204589119 No Longer Active Gab Padron MD Active ZOFRAN ODT 4 MG TBDP 1 po q6hr PRN Nausea ONDANSETRON 05791323452 Active Jillina Frazell ASSISTANT COMMUNITY DIRECTOR Active IBUPROFEN 600 MG TAB 1 tablet by mouth every 6 hours for 7 days, then 1 tablet every 6 hours as needed. Take with food IBUPROFEN 70848089801 Active Jillina Frazell ASSISTANT COMMUNITY DIRECTOR Active BACTRIM DS 800-160 MG TAB 1 tab by mouth twice daily TRIMETHOPRIM-SULFAMETHOXAZOLE 28454880331 No Longer Active Gab Padron MD Active ADVAIR DISKUS 250-50 MCG/DOSE AEPB 1 puff BID FLUTICASONE- SALMETEROL 04245816119 Active Rodrigo Sarah APRN Active LEVOTHYROXINE SODIUM 75 MCG TABS Take 1 tab daily LEVOTHYROXINE SODIUM 95255948666 No Longer Active Mariana HICKEYA Active SYNTHROID 88 MCG ORAL TABS Take one by mouth daily LEVOTHYROXINE SODIUM 46260926929 Active Mariana HICKEYA Active CHERATUSSIN AC 100-10 MG/5ML SYRP 1 tsp by mouth every 4 hours as needed for cough GUAIFENESIN-CODEINE 99897551486 No Longer Active Gab Padron MD Active POLYTRIM 45625-1.1 UNIT/ML-% SOLN 1 gtt to affected eye q3h x 7 days POLYMYXIN B-TRIMETHOPRIM 08837855367 No Longer Active Gab Padron MD Active FLUTICASONE PROPIONATE 50 MCG/ACT SUSP 1 to 2 sprays each nostril daily 04/21 FLUTICASONE PROPIONATE 19206173850 No Longer Active Gab Padron MD Active TRILEPTAL 600 MG TABS Take one 1 tablet in Am and 1 tablet at night OXCARBAZEPINE 75697682367 Active Gab Padron MD Active CEFDINIR 300 MG CAPS 1 po BID x 10 days CEFDINIR 44928499275 No Longer Active Rodrigo Sarah APRN Active CEFTIN 500 MG TAB 1 twice a day CEFUROXIME AXETIL 72861611762 No Longer Active Gab Padron MD Active AZITHROMYCIN 250 MG TABS 2 po qd x 1 day, then 1 po qd x 4 days AZITHROMYCIN 72243749500 No Longer Active Silvestrellnacho Sarah APRN Active CLARITIN 10 MG TAB 1 tablet by mouth daily as needed for allergies LORATADINE 05887844675 Active Silvestrellnacho Sarah APRN Active OXYCODONE HCL 5 MG ORAL CAPS 1 TAB PO Q HS OXYCODONE HCL 23897306248 No Longer Active Rodrigo Sarah APRN Active NIASPAN 500 MG ORAL CR-TABS 1 pill nightly x 1 week, then 2 pills nightly x 1 week, then 3 pills nightly x 1 week, then 4 pills nightly NIACIN (ANTIHYPERLIPIDEMIC) 89255595073 No Longer Active Rodrigo Farshadhossein ZAPATAN Active NIACIN 500 MG TABS 1 pill by mouth nightly x 1 week, then 2 pills x 1 week, then 3 pills x 1 week, then 4 pills nightly - take after evening meal, with applesauce or an apple NIACIN 78316335795 No Longer Active Yolande Lindsay MD PhD Active FISH OIL 1000 MG CAPS 3 pills daily OMEGA-3 FATTY ACIDS 35234574127 Active Yolande Lindsay MD PhD Active TRIAMCINOLONE ACETONIDE 0.1 % CREA apply bid sparingly to rash TRIAMCINOLONE ACETONIDE 86641976431 Active Yolande Lindsay MD PhD Active FUROSEMIDE 20 MG TAB 1 tablet by mouth daily FUROSEMIDE 40865399885 Active Tisha Lambert APRN Active LISINOPRIL 20 MG ORAL TABS 1 tab by mouth daily LISINOPRIL 14112398227 Active Gab Padron MD Active FUROSEMIDE 20 MG TABS 1 pill by mouth daily, for edema FUROSEMIDE 25673611337 No Longer Active Yolande Lindsay MD PhD Active ATORVASTATIN CALCIUM 10 MG TABS 1 pill by mouth daily, for cholesterol 09/06 ATORVASTATIN CALCIUM 60561927896 Active Gab Padron MD Active CALCIUM 600+D PLUS MINERALS 600-400 MG-UNIT ORAL CHEW 1 tab by mouth daily CALCIUM CARBONATE-VIT D-MIN 85408496710 No Longer Active Yolande Lindsay MD PhD Active CYCLOBENZAPRINE HCL 10 MG TABS 1 tablet by mouth three times daily as needed for muscle spasm/pain CYCLOBENZAPRINE HCL 92694873895 Active Yolande Lindsay MD PhD Active ONDANSETRON 4 MG TBDP 1 q4h PRN nausea ONDANSETRON 76792293694 Active Yolande Lindsay MD PhD Active ADULT ASPIRIN EC LOW STRENGTH 81 MG TBEC Take 1 tablet by mouth daily 2014 ASPIRIN 93640491827 No Longer Active Yolande Lidnsay MD PhD Active ZOFRAN ODT 4 MG TBDP 1 pill dissolved by mouth every 4 hours if needed for nausea ONDANSETRON 26540144115 No Longer Active Yolande Lindsay MD PhD Active CEFTIN 500 MG TAB 1 twice a day CEFUROXIME AXETIL 44752977432 No Longer Active Yolande Lindsay MD PhD Active ALBUTEROL SULFATE 0.083 % NEBU SOLN one vial per nebulizer every 4-6 hours as needed ALBUTEROL SULFATE 08263188211 No Longer Active Alexis Ordaz MD Active DOXYCYCLINE HYCLATE 100 MG CAP 1 cap by mouth twice daily DOXYCYCLINE HYCLATE 49763994163 No Longer Active Yolande Lindsay MD PhD Active CYCLOBENZAPRINE HCL 10 MG TABS 1/2 - 1 tab by mouth three times daily if needed for spasms/pain CYCLOBENZAPRINE HCL 83625970319 No Longer Active Yolande Lindsay MD PhD Active AZITHROMYCIN 250 MG TABS 2 pills on day 1, then 1 pill daily x 4 days AZITHROMYCIN 85954435555 No Longer Active Yolande Lindsay MD PhD Active XOPENEX 1.25 MG/3ML NEBU 1 neb every 4 hours if needed for cough/congestion LEVALBUTEROL HCL 00509929215 No Longer Active Yolande Lindsay MD PhD Active DOXYCYCLINE HYCLATE 100 MG TAB 1 tab twice a day for 14 days 2013 DOXYCYCLINE HYCLATE 48153913241 No Longer Active Yolande Lindsay MD PhD Active PREVACID 30 MG CPDR Take 1 tablet by mouth daily-PRN LANSOPRAZOLE 09787382932 No Longer Active Yolande Lindsay MD PhD Active PA VITAMIN D-3 2000 UNIT CAPS 1 CAP PO DAILY CHOLECALCIFEROL 00135537747 No Longer Active Yolande Lindsay MD PhD Active CEFDINIR 300 MG CAPS by mouth twice a day CEFDINIR 67497675781 No Longer Active Gab Padron MD Active TOPAMAX 50 MG TABS 1 PO twice daily TOPIRAMATE 97861561410 Active Yolande Lindsay MD PhD Active AZITHROMYCIN 250 MG TABS 2 po qd x 1 day, then 1 po qd x 4 days AZITHROMYCIN 32269697036 No Longer Active Yolande Lindsay MD PhD Active DICLOFENAC SODIUM 75 MG TBEC 1 tablet by q 12 hours PRN headaches DICLOFENAC SODIUM 59587911994 No Longer Active Yolande Lindsay MD PhD Active FLONASE 50 MCG/ACT SUSP 1 spray each nostril am and hs FLUTICASONE PROPIONATE 51966335460 No Longer Active Todd Callaway MD Active ANUSOL-HC 25 MG SUPPOSITORY 1 rectally twice a day as needed for hemorrhoids HYDROCORTISONE JAYDEN (RECTAL) 20038552704 No Longer Active Yolande Lindsay MD PhD Active ANUSOL-HC 25 MG SUPPOSITORY 1 suppository rectally each evening as needed for anal fissure HYDROCORTISONE JAYDEN (RECTAL) 49785825511 No Longer Active LONNIE Iglesias Active VALIUM 5 MG TAB 1 po 30 minutes prior to your MRI DIAZEPAM 15307139734 No Longer Active LONNIE Iglesias Active METHOCARBAMOL 750 MG TABS 1 PO QID PRN METHOCARBAMOL 19755600634 No Longer Active Daphne Wetzel APRN Active NITROSTAT 0.4 MG SUBL as directed NITROGLYCERIN 25558676800 No Longer Active Rodrigo Sarah APRN Active ROBAXIN-750 750 MG TABS 2 four times a day for 3 days as needed for muscle spasm, then 1 four times a day as needed METHOCARBAMOL 10180207597 No Longer Active Rodrigo Sarah APRN Active HYDROCODONE-ACETAMINOPHEN 5-325 MG TABS 1 q 4-6 hrs prn HYDROCODONE-ACETAMINOPHEN 71913501713 No Longer Active Rodrigo Sarah ASSISTANT COMMUNITY DIRECTOR Active VERAPAMIL HCL CR 180 MG CR-TABS TAKE 1 TAB DAILY VERAPAMIL HCL 35082824141 No Longer Active Yolande Lindsay MD PhD Active BACTRIM DS 800-160 MG TAB 1 tab by mouth twice daily TRIMETHOPRIM-SULFAMETHOXAZOLE 14327319223 No Longer Active Yolande Lindsay MD PhD Active NEXIUM 40 MG PACK 1 by mouth daily ESOMEPRAZOLE MAGNESIUM 81791250423 No Longer Active Des Hines MD Active EPIPEN 2-CHARLETTE 0.3 MG/0.3ML OMARI as need for allergic reaction EPINEPHRINE 67502616355 Active Yolande Lindsay MD PhD Active NEXIUM 40 MG CPDR 1 PO Q D DAY ESOMEPRAZOLE MAGNESIUM 39441715556 No Longer Active Sadia Perry RN Active NEXIUM 40 MG PACK 1 by mouth daily NEXIUM 40 MG PACK ESOMEPRAZOLE MAGNESIUM Inactive VERAPAMIL HCL CR 180 MG CR-TABS TAKE 1 TAB DAILY VERAPAMIL HCL CR 180 MG CR-TABS VERAPAMIL HCL Inactive HYDROCODONE-ACETAMINOPHEN 5-325 MG TABS 1 q 4-6 hrs prn HYDROCODONE-ACETAMINOPHEN 5-325 MG TABS 838323 HYDROCODONE-ACETAMINOPHEN Inactive ROBAXIN-750 750 MG TABS 2 four times a day for 3 days as needed for muscle spasm, then 1 four times a day as needed ROBAXIN-750 750 MG TABS 394419 METHOCARBAMOL Inactive NITROSTAT 0.4 MG SUBL as directed NITROSTAT 0.4 MG SUBL NITROGLYCERIN Inactive METHOCARBAMOL 750 MG TABS 1 PO QID PRN METHOCARBAMOL 750 MG TABS 301828 METHOCARBAMOL Inactive VALIUM 5 MG TAB 1 po 30 minutes prior to your MRI VALIUM 5 MG TAB 694748 DIAZEPAM Inactive ANUSOL-HC 25 MG SUPPOSITORY 1 suppository rectally each evening as needed for anal fissure ANUSOL-HC 25 MG SUPPOSITORY 5808552 HYDROCORTISONE JAYDEN (RECTAL) Inactive ANUSOL-HC 25 MG SUPPOSITORY 1 rectally twice a day as needed for hemorrhoids ANUSOL-HC 25 MG SUPPOSITORY 8605102 HYDROCORTISONE JAYDEN (RECTAL) Inactive FLONASE 50 MCG/ACT SUSP 1 spray each nostril am and hs FLONASE 50 MCG/ACT SUSP FLUTICASONE PROPIONATE Inactive DICLOFENAC SODIUM 75 MG TBEC 1 tablet by q 12 hours PRN headaches DICLOFENAC SODIUM 75 MG TBEC 708554 DICLOFENAC SODIUM Inactive PA VITAMIN D-3 2000 UNIT CAPS 1 CAP PO DAILY PA VITAMIN D-3 2000 UNIT CAPS CHOLECALCIFEROL Inactive PREVACID 30 MG CPDR Take 1 tablet by mouth daily-PRN PREVACID 30 MG CPDR 623296 LANSOPRAZOLE Inactive DOXYCYCLINE HYCLATE 100 MG TAB 1 tab twice a day for 14 days 2013 DOXYCYCLINE HYCLATE 100 MG TAB 8781427 DOXYCYCLINE HYCLATE Inactive XOPENEX 1.25 MG/3ML NEBU 1 neb every 4 hours if needed for cough/congestion XOPENEX 1.25 MG/3ML NEBU 307841 LEVALBUTEROL HCL Inactive CYCLOBENZAPRINE HCL 10 MG TABS 1/2 - 1 tab by mouth three times daily if needed for spasms/pain CYCLOBENZAPRINE HCL 10 MG TABS 617587 CYCLOBENZAPRINE HCL Inactive ALBUTEROL SULFATE 0.083 % NEBU SOLN one vial per nebulizer every 4-6 hours as needed ALBUTEROL SULFATE 0.083 % NEBU SOLN 195677 ALBUTEROL SULFATE Inactive CEFTIN 500 MG TAB 1 twice a day CEFTIN 500 MG TAB 840412 CEFUROXIME AXETIL Inactive ZOFRAN ODT 4 MG TBDP 1 pill dissolved by mouth every 4 hours if needed for nausea ZOFRAN ODT 4 MG TBDP 149680 ONDANSETRON Inactive ADULT ASPIRIN EC LOW STRENGTH 81 MG TBEC Take 1 tablet by mouth daily 2014 ADULT ASPIRIN EC LOW STRENGTH 81 MG TBEC 708262 ASPIRIN Inactive CALCIUM 600+D PLUS MINERALS 600-400 [...] or an apple NIACIN 500 MG TABS 499382 NIACIN Inactive NIASPAN 500 MG ORAL CR-TABS 1 pill nightly x 1 week, then 2 pills nightly x 1 week, then 3 pills nightly x 1 week, then 4 pills nightly NIASPAN 500 MG ORAL CR-TABS NIACIN (ANTIHYPERLIPIDEMIC) Inactive OXYCODONE HCL 5 MG ORAL CAPS 1 TAB PO Q HS OXYCODONE HCL 5 MG ORAL CAPS 4254639 OXYCODONE HCL Inactive FLUTICASONE PROPIONATE 50 MCG/ACT SUSP 1 to 2 sprays each nostril daily 04/21 FLUTICASONE PROPIONATE 50 MCG/ACT SUSP 6836338 FLUTICASONE PROPIONATE Inactive POLYTRIM 92795-6.1 UNIT/ML-% SOLN 1 gtt to affected eye q3h x 7 days POLYTRIM 06889-0.1 UNIT/ML-% SOLN 679803 POLYMYXIN B- TRIMETHOPRIM Inactive CHERATUSSIN AC 100-10 MG/5ML SYRP 1 tsp by mouth every 4 hours as needed for cough CHERATUSSIN AC 100-10 MG/5ML SYRP 926236 GUAIFENESIN-CODEINE Inactive LEVOTHYROXINE SODIUM 75 MCG TABS Take 1 tab daily LEVOTHYROXINE SODIUM 75 MCG TABS 229032 LEVOTHYROXINE SODIUM Inactive BACTRIM DS 800-160 MG TAB 1 tab by mouth twice daily BACTRIM DS 800-160 MG TAB 19820606 TRIMETHOPRIM-SULFAMETHOXAZOLE Inactive AZITHROMYCIN 250 MG TABS 2 po qd x 1 day, then 1 po qd x 4 days AZITHROMYCIN 250 MG TABS 0732913 AZITHROMYCIN Inactive CEFDINIR 300 MG CAPS by mouth twice a day CEFDINIR 300 MG CAPS 428247 CEFDINIR Inactive AZITHROMYCIN 250 MG TABS 2 pills on day 1, then 1 pill daily x 4 days AZITHROMYCIN 250 MG TABS 3577021 AZITHROMYCIN Inactive DOXYCYCLINE HYCLATE 100 MG CAP 1 cap by mouth twice daily DOXYCYCLINE HYCLATE 100 MG CAP 5293203 DOXYCYCLINE HYCLATE Inactive FUROSEMIDE 20 MG TABS 1 pill by mouth daily, for edema FUROSEMIDE 20 MG TABS 613896 FUROSEMIDE Inactive AZITHROMYCIN 250 MG TABS 2 po qd x 1 day, then 1 po qd x 4 days AZITHROMYCIN 250 MG TABS 3768114 AZITHROMYCIN Inactive CEFTIN 500 MG TAB 1 twice a day CEFTIN 500 MG TAB 551403 CEFUROXIME AXETIL Inactive CEFDINIR 300 MG CAPS [...] for 2 days PREDNISONE 20 MG TAB 776711 PREDNISONE Inactive Immunizations Vaccine Administration Date Value Standard Description Seasonal influenza vaccine, injectable, containing preservative, for > 3 years old (Afluria, FluLaval, Fluzone, Fluvirin, Fluarix, Agriflu(>=18 yo)) Fluzone (>3 yrs.) [QSS600] Influenza, seasonal, injectable influenza immunization (Flu Vax) has been administered Influenza - Unspecified Formulation [CVX88] influenza virus vaccine, unspecified formulation Seasonal influenza vaccine, injectable, containing preservative, for > 3 years old (Afluria, FluLaval, Fluzone, Fluvirin, Fluarix, Agriflu(>=18 yo)) Fluzone (>3 yrs.) [COL607] Influenza, seasonal, injectable pneumococcal immunization administered Pneumovax 23 [CVX33] pneumococcal polysaccharide vaccine, 23 valent dT (Diphtheria and Tetanus) booster given given Td(adult) unspecified formulation Boostrix (Tetanus toxoid, reduced diphtheria toxoid and acellular pertussis vaccine, adsorbed), booster Boostrix [ACA976] tetanus toxoid, reduced diphtheria toxoid, and acellular [...] Panel - Chemistry sodium, serum 142 mmol/L 961-138 4398/06/30 potassium, serum 4.4 mmol/L 3.5-5.2 chloride, serum [...] Rate - Chemistry sodium, serum 139 mmol/L 251-729 8980/03/24 carbon dioxide, venous blood 22.4 mmol/L 21.0-32.0 [...] W/MICRO, AUTO, Thyroid Stimulat ... - Chemistry RBC, urine, dipstick Negative Negative TSH 0.63 m[iU]/mL 0.36-3.74 thyroxine, serum, free 0.80 ng/dL 0.76-1.46 sodium, serum 143 mmol/L 094-461 0918/05/02 carbon dioxide, venous blood 25.6 mmol/L 21.0-32.0 [...] urine random Negative mg/dL Negative Lab Report: Comp. Metabolic Panel, UADIP W/MICRO, AUTO, Thyroid Stimulat ... - Urinalysis glucose, urine, semiquantitative Negative Negative ketones, urine, by test strip Negative Negative bilirubin, urine Negative Negative urine color Yellow Colorless;Lightyellow;Straw;Yellow appearance, urine Clear Clear specific gravity, urine 1.015 1.000-1.030 pH, urine, semiquantitative 6.5 5.0-8.5 urobilinogen, [...] dipstick Negative Negative sodium, serum 142 mmol/L 677-492 7721/07/18 carbon dioxide, venous blood 27.8 mmol/L 21.0-32.0 [...] protein, urine, semiquantitative (dipstick) negative Office Visit: GET EST - Chemistry cholesterol, target level 200 mg/dL LDL target level 100 mg/dL HDL cholesterol, serum, target level 40 mg/dL triglyceride, target level 150 mg/dL Encounters Code Encounter Date Provider Facility CPT-24221 Level 2 Est. Patient 12:23:38 CDT Jared Og MD [facility] CPT-77291 Level 3 Est. Patient 11:01:51 CDT Gab Padron MD [facility] CPT-58918 Level 3 Est. Patient 15:27:02 CDT Jared Og MD [facility] CPT-72255 Level 4 Est. Patient 09:25:27 CDT Gab Padron MD [facility] CPT-93845 Level 3 Est. Patient 10:29:41 CDT Rodrigo Sarah [facility] CPT-04419 Level 4 Est. Patient 17:51:05 CDT Gab Padron MD [facility] CPT-66810 Level 3 Est. Patient 14:18:08 CDT Gab Padron MD [facility] CPT-24249 Level 4 Est. Patient 10:18:54 CDT Gab Padron MD [facility] CPT-58969 Level 3 Est. Patient 11:30:07 CDT Rodrigo Sarah [facility] CPT-13816 Level 4 Est. Patient 21:02:30 TAX COMPLIANCE REPRESENTATIVE Gab Padron MD [facility] CPT-28951 Level 3 Est. Patient 11:02:19 TAX COMPLIANCE REPRESENTATIVE Gab Padron MD [facility] CPT-56799 Level 4 Est. Patient 22:24:31 TAX COMPLIANCE REPRESENTATIVE Gab Padron MD [facility] CPT-93190 Level 3 Est. Patient 18:33:46 TAX COMPLIANCE REPRESENTATIVE aGb Padron MD [facility]-55434 Level 3 Est. Patient 16:19:11 CDT Yolande Lindsay MD [facility]-59199 Level 3 Est. Patient 18:59:14 CDT Yolande Lindsay MD [facility]-65276 Level 4 Est. Patient 21:29:26 CDT Yolande Lindsay MD [facility]-59741 Level 3 Est. Patient 07:37:45 CDT Yolande Lindsay MD [facility]-23199 Level 3 Est. Patient 17:03:46 CDT Yolande Lindsay MD [facility]-13481 Level 4 Est. Patient 20:02:13 TAX COMPLIANCE REPRESENTATIVE Yolande Lindsay MD [facility]-91138 Level 3 Est. Patient 16:02:07 TAX COMPLIANCE REPRESENTATIVE Alexis Ordaz MD [facility]-18924 Level 3 Est. Patient 12:41:24 TAX COMPLIANCE REPRESENTATIVE Yolande Lindsay MD [facility]-59576 Level 3 Est. Patient 15:41:20 TAX COMPLIANCE REPRESENTATIVE Yolande Lindsay MD [facility]-19489 Level 3 Est. Patient 13:20:02 TAX COMPLIANCE REPRESENTATIVE Yolande Lindsay MD [facility]-05162 Level 3 Est. Patient 15:00:38 CDT Jared Og MD [facility]-69522 Level 3 Est. Patient 10:22:32 CDT Yolande Lindsay MD [facility]-99301 Level 3 Est. Patient 17:12:58 CDT Yolande Lindsay MD [facility]-55863 Level 4 Est. Patient 13:30:58 CDT Yolande Lindsay MD [facility]-74528 Level 4 New Patient 09:02:42 CDT Jared Og MD [facility]-95518 Level 3 Est. Patient 08:19:07 CDT Yolande Lindsay MD [facility]-45319 Level 3 Est. Patient 12:00:13 TAX COMPLIANCE REPRESENTATIVE Gab Padron MD [facility]-51170 Level 3 Est. Patient 16:15:23 TAX COMPLIANCE REPRESENTATIVE Yolande Lindsay MD [facility]-71268 Level 2 Est. Patient 19:47:15 CDT Yolande Lindsay MD [facility]-78254 Level 3 Est. Patient 21:38:31 CDT Yolande Lindsay MD [facility]-30090 Level 3 Est. Patient 10:25:12 CDT Adiel PERAZA [facility] CPT-02777 Level 4 Est. Patient 10:51:58 CDT Yolande Lindsay MD [facility] CPT-14487 Level 3 Est. Patient 14:04:55 TAX COMPLIANCE REPRESENTATIVE Rodrigo Sarah [facility]-82519 Level 3 Est. Patient 10:46:35 TAX COMPLIANCE REPRESENTATIVE Rodrigo Sarah [facility] CPT-87633 Level 3 Est. Patient 14:24:37 TAX COMPLIANCE REPRESENTATIVE Yolande Lindsay MD [facility]-96143 Level 3 Est. Patient 17:41:58 TAX COMPLIANCE REPRESENTATIVE Yolande Lindsay MD [facility]-58316 Level 2 Est. Patient 22:01:41 TAX COMPLIANCE REPRESENTATIVE Rodrigo Sarah [facility]-59759 Level 2 Est. Patient 22:01:11 TAX COMPLIANCE REPRESENTATIVE Rodrigo Sarah [facility]-00709 Level 3 Est. Patient 10:12:29 TAX COMPLIANCE REPRESENTATIVE Rodrigo Sarah APRN [facility] CPT-89794 Level 3 Est. Patient 11:05:44 CDT Alexis Ordaz MD [facility] CPT-64513 Level 3 Est. Patient 14:57:20 CDT Yolande Lindsay MD [facility] CPT-00539 Level 3 Est. Patient 14:40:57 CDT Yolande Lindsay MD [facility] CPT-05165 Level 3 Est. Patient 20:55:40 CDT Yolande Lindsay MD [facility] CPT-18225 Level 3 Est. Patient 12:42:38 TAX COMPLIANCE REPRESENTATIVE Yolande Lindsay MD [facility] CPT-48279 Level 3 Est. Patient 11:54:49 TAX COMPLIANCE REPRESENTATIVE Des Hines MD [facility] CPT-14264 Level 3 Est. Patient 17:06:38 CDT Dewayne PERAZA [facility] Procedures Code Procedure Name Date Entry Date Standard Description CPT-33918 Foot, left, comp min 3V - XRAY USE ONLY 09:24:54 CDT CPT-62904 Abd single AP View - XRAY USE ONLY 11:16:17 CDT CPT-30385 T spine AP/ Lat - XRAY USE ONLY 09:34:21 CDT CPT-54031 Chest 2V Frontal and Lat - XRAY USE ONLY 10:48:51 CDT CPT-66825 LS spine comp w obliq 13:28:00 TAX COMPLIANCE REPRESENTATIVE CPT-J1040 Depo Medrol 80 mg (Methyl Prednisolone Acetate) 10:51: 28 TAX COMPLIANCE REPRESENTATIVE CPT-J1100 Decadron 8mg (Dexamethasone) 10:51:28 TAX COMPLIANCE REPRESENTATIVE CPT-19636 Abx/Therapy Injection 10:51:28 TAX COMPLIANCE REPRESENTATIVE CPT-J1100 Decadron 8mg (Dexamethasone) 21:02:30 TAX COMPLIANCE REPRESENTATIVE CPT-J1040 Depo Medrol 80 mg (Methyl Prednisolone Acetate) 21:02: 30 TAX COMPLIANCE REPRESENTATIVE [id number] Event Monitor - MC Transmission 09:12:32 CDT 08/06 [id number] Event Monitor - MC review and interp 09:12:32 CDT [id number] Event Monitor - MC recording 09:12:32 CDT CPT-26953 EKG Trac and Interp 16:50:22 CDT CPT-J1030 Depo Medrol 40 mg (Methyl Prednisolone Acetate) 17:05: 54 CDT CPT-J1100 Decadron 4mg (Dexamethasone) 17:05:54 CDT CPT-70326 Abx/Therapy Injection 17:05:54 CDT CPT-J1100 Decadron 4mg (Dexamethasone) 16:55:28 CDT CPT-J1030 Depo Medrol 40 mg (Methyl Prednisolone Acetate) 16:55: 28 CDT CPT-17855 Ankle Complete - Min 3V 15:58:50 CDT CPT-11038 Knee 3V 15:58:50 CDT CPT-11127 Hip comp min 2V 15:58:50 CDT CPT-J2270 Morphine Sulfate 10 mg 14:25:44 TAX COMPLIANCE REPRESENTATIVE CPT-J2550 Phenergan 12.5 mg (Promethazine) 14:25:44 TAX COMPLIANCE REPRESENTATIVE CPT-21835 Abx/Therapy Injection 14:25:44 TAX COMPLIANCE REPRESENTATIVE CPT-J2550 Phenergan 12.5 mg (Promethazine) 14:08:03 TAX COMPLIANCE REPRESENTATIVE CPT-J2270 Morphine Sulfate 10 mg 14:08:03 TAX COMPLIANCE REPRESENTATIVE CPT-66198 Bladder Scan 15:00:38 CDT CPT-TCMM Transitional Care Mgmt-Moderate 09:52:22 CDT CPT-J1030 Depo Medrol 40 mg (Methyl Prednisolone Acetate) 10:55: 18 CDT CPT-J1100 Decadron 4mg (Dexamethasone) 10:55:18 CDT CPT-92408 Abx/Therapy Injection 10:55:18 CDT CPT-J1030 Depo Medrol 40 mg (Methyl Prednisolone Acetate) 10:22: 32 CDT CPT-J1100 Decadron 4mg (Dexamethasone) 10:22:32 CDT CPT-66426 Postop F/U Visit 14:37:13 CDT CPT-47211 Ankle Complete - Min 3V 17:11:58 CDT CPT-03397 Foot comp min 3V 17:11:58 CDT CPT-34279 Bladder Scan 09:56:58 CDT CPT-21083 Postop F/U Visit 09:56:58 CDT CPT-62486 Cystoscopy 09:02:42 CDT CPT-92920 Bladder Scan 09:02:42 CDT CPT-21688 Abd single AP View 16:00:35 CDT CPT-86502 Administration single or combination vaccine inc oral 10 :15:43 CDT CPT-25655 Influenza split virus > age 3 10:15:43 CDT CPT-35738 Nail Avulsion 09:24:57 CDT CPT-OV Office Visit 11:15:41 CDT CPT-39502 Abx/Therapy Injection 10:51:30 CDT CPT-J3301 Kenalog 40 mg (Triamcinolone Acetonide) 10:25:12 CDT CPT-J1100 Decadron 4mg (Dexamethasone) 10:25:12 CDT CPT-55570 Anoscopy diagnostic 10:36:12 CDT CPT-OV Office Visit 15:34:31 CDT CPT-44584 Abx/Therapy Injection 08:21:15 TAX COMPLIANCE REPRESENTATIVE CPT-J1885 Toradol 60 mg (Ketorolac) 10:46:35 TAX COMPLIANCE REPRESENTATIVE CPT-OV Office Visit 19:51:16 TAX COMPLIANCE REPRESENTATIVE CPT-06233 Spec Collection and Handling Fee 14:34:18 TAX COMPLIANCE REPRESENTATIVE CPT-PV Prev. Care Visit 14:19:18 TAX COMPLIANCE REPRESENTATIVE CPT-39039 Postop F/U Visit 14:47:51 TAX COMPLIANCE REPRESENTATIVE CPT-96058 Postop F/U Visit 15:15:14 TAX COMPLIANCE REPRESENTATIVE CPT-64333 Postop F/U Visit 14:41:43 CDT CPT-99190 Postop F/U Visit 15:47:46 CDT CPT-OV Office Visit 15:27:23 CDT CPT-OV Office Visit 17:20:34 CDT CPT-21134 Abx/Therapy Injection 15:05:57 CDT CPT-J1100 Decadron 8mg (Dexamethasone) 14:44:57 CDT CPT-J1040 Depo Medrol 80 mg (Methyl Prednisolone Acetate) 14:44: 57 CDT CPT-JTINJ Joint Injection 10:17:37 CDT CPT-75018 Administration 2+ single or combination vaccines inc oral 13:01:46 TAX COMPLIANCE REPRESENTATIVE CPT-31805 Administration single or combination vaccine inc oral 13 :01:46 TAX COMPLIANCE REPRESENTATIVE CPT-16610 Pneumovax 13:01:46 TAX COMPLIANCE REPRESENTATIVE CPT-28606 Influenza split virus > age 3 13:01:46 TAX COMPLIANCE REPRESENTATIVE CPT-26944 Administration single or combination vaccine inc oral 08 :56:49 CDT CPT-89476 Tdap 08:56:49 CDT
--- OUTSIDE RECORDS SUMMARY | 2017-03-21 21:54 | XMS REPORT | Clinical Summary ---
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 things Critical Active Dewayne [...] of 412 Active Hoa Otto [facility] Old myocardial infarction FOOT PAIN, RIGHT ICD-729.5 [...] tab by mouth daily CALCIUM CARBONATE-VIT D-MIN 61414459587 Active Yolande Lindsay MD PhD Active ONDANSETRON 4 MG TBDP 1 q4h PRN nausea ONDANSETRON 28601971811 Active Yolande Lindsay MD PhD Active ADULT ASPIRIN EC LOW STRENGTH 81 MG TBEC Take 1 tablet by mouth daily 2014 ASPIRIN 13141655743 No Longer Active Yolande Lindsay MD PhD Active ZOFRAN ODT 4 MG TBDP 1 pill dissolved by mouth every 4 hours if needed for nausea ONDANSETRON 99401215803 No Longer Active Yolande Lindsay MD PhD Active CEFTIN 500 MG TAB 1 twice a day CEFUROXIME AXETIL 30331299081 No Longer Active Yolande Lindsay MD PhD Active ALBUTEROL SULFATE 0.083 % NEBU SOLN one vial per nebulizer every 4-6 hours as needed ALBUTEROL SULFATE 35720361514 No Longer Active Alexis Ordaz MD Active DOXYCYCLINE HYCLATE 100 MG CAP 1 cap by mouth twice daily DOXYCYCLINE HYCLATE 41161904567 No Longer Active Yolande Lindsay MD PhD Active CYCLOBENZAPRINE HCL 10 MG TABS 1/2 - 1 tab by mouth three times daily if needed for spasms/pain CYCLOBENZAPRINE HCL 88992297281 No Longer Active Yolande Lindsay MD PhD Active TRILEPTAL 600 MG TABS Take one 1/2 tablet in Am and 1 tablet at night OXCARBAZEPINE 69691858786 Active Yolande Lindsay MD PhD Active AZITHROMYCIN 250 MG TABS 2 pills on day 1, then 1 pill daily x 4 days AZITHROMYCIN 85259328494 No Longer Active Yolande Lindsay MD PhD Active XOPENEX 1.25 MG/3ML NEBU 1 neb every 4 hours if needed for cough/congestion LEVALBUTEROL HCL 69566787947 No Longer Active Yolande Lindsay MD PhD Active DOXYCYCLINE HYCLATE 100 MG TAB 1 tab twice a day for 14 days 2013 DOXYCYCLINE HYCLATE 37471822087 No Longer Active Yolande Lindsay MD PhD Active LEVOTHYROXINE SODIUM 75 MCG TABS Take 1 tab daily LEVOTHYROXINE SODIUM 53934726956 Active Yolande Lindsay MD PhD Active PREVACID 30 MG CPDR Take 1 tablet by mouth daily-PRN LANSOPRAZOLE 81448918775 No Longer Active Yolande Lindsay MD PhD Active PA VITAMIN D-3 2000 UNIT CAPS 1 CAP PO DAILY CHOLECALCIFEROL 89607016683 No Longer Active Yolande Lindsay MD PhD Active CEFDINIR 300 MG CAPS by mouth twice a day CEFDINIR 69929192336 No Longer Active Gab Padron MD Active TOPAMAX 50 MG TABS 1 PO twice daily TOPIRAMATE 15658963907 Active Yolande Lindsay MD PhD Active AZITHROMYCIN 250 MG TABS 2 po qd x 1 day, then 1 po qd x 4 days AZITHROMYCIN 20453256600 No Longer Active Yolande Lindsay MD PhD Active DICLOFENAC SODIUM 75 MG TBEC 1 tablet by q 12 hours PRN headaches DICLOFENAC SODIUM 77219797416 No Longer Active Yolande Lindsay MD PhD Active FLONASE 50 MCG/ACT SUSP 1 spray each nostril am and hs FLUTICASONE PROPIONATE 52335972225 No Longer Active Todd Callaway MD Active ANUSOL-HC 25 MG SUPPOSITORY 1 rectally twice a day as needed for hemorrhoids HYDROCORTISONE JAYDEN (RECTAL) 35883208373 No Longer Active Yolande Lindsay MD PhD Active ANUSOL-HC 25 MG SUPPOSITORY 1 suppository rectally each evening as needed for anal fissure HYDROCORTISONE JAYDEN (RECTAL) 31137469936 No Longer Active LONNIE Iglesias Active VALIUM 5 MG TAB 1 po 30 minutes prior to your MRI DIAZEPAM 17686982773 No Longer Active LONNIE Iglesias Active METHOCARBAMOL 750 MG TABS 1 PO QID PRN METHOCARBAMOL 15576285150 No Longer Active Daphne Wetzel APRN Active NITROSTAT 0.4 MG SUBL as directed NITROGLYCERIN 45732176614 No Longer Active Rodrigo Sarah APRN Active ROBAXIN-750 750 MG TABS 2 four times a day for 3 days as needed for muscle spasm, then 1 four times a day as needed METHOCARBAMOL 12667335493 No Longer Active Rodrigo Sarah APRN Active HYDROCODONE-ACETAMINOPHEN 5-325 MG TABS 1 q 4-6 hrs prn HYDROCODONE-ACETAMINOPHEN 42560097953 No Longer Active Rodrigo Sarah APRN Active VERAPAMIL HCL CR 180 MG CR-TABS TAKE 1 TAB DAILY VERAPAMIL HCL 87592132122 No Longer Active Yolande Lindsay MD PhD Active BACTRIM DS 800-160 MG TAB 1 tab by mouth twice daily TRIMETHOPRIM-SULFAMETHOXAZOLE 06194217046 No Longer Active Yolande Lindsay MD PhD Active NEXIUM 40 MG PACK 1 by mouth daily ESOMEPRAZOLE MAGNESIUM 88000577940 No Longer Active Des Hines MD Active EPIPEN 2-CHARLETTE 0.3 MG/0.3ML OMARI as need for allergic reaction EPINEPHRINE 96061665080 Active Yolande Lindsay MD PhD Active LISINOPRIL 10 MG TABS 1 PO Q D FOR BP LISINOPRIL 39109802946 Active Yolande Lindsay MD PhD Active NEXIUM 40 MG CPDR 1 PO Q D DAY ESOMEPRAZOLE MAGNESIUM 25051146514 No Longer Active Sadia Perry RN Active NEXIUM 40 MG PACK 1 by mouth daily NEXIUM 40 MG PACK ESOMEPRAZOLE MAGNESIUM Inactive VERAPAMIL HCL CR 180 MG CR-TABS TAKE 1 TAB DAILY VERAPAMIL HCL CR 180 MG CR-TABS VERAPAMIL HCL Inactive HYDROCODONE-ACETAMINOPHEN 5-325 MG TABS 1 q 4-6 hrs prn HYDROCODONE-ACETAMINOPHEN 5-325 MG TABS 813523 HYDROCODONE-ACETAMINOPHEN Inactive ROBAXIN-750 750 MG TABS 2 four times a day for 3 days as needed for muscle spasm, then 1 four times a day as needed ROBAXIN-750 750 MG TABS 800265 METHOCARBAMOL Inactive NITROSTAT 0.4 MG SUBL as directed NITROSTAT 0.4 MG SUBL NITROGLYCERIN Inactive METHOCARBAMOL 750 MG TABS 1 PO QID PRN METHOCARBAMOL 750 MG TABS 075933 METHOCARBAMOL Inactive VALIUM 5 MG TAB 1 po 30 minutes prior to your MRI VALIUM 5 MG TAB 884570 DIAZEPAM Inactive ANUSOL-HC 25 MG SUPPOSITORY 1 suppository rectally each evening as needed for anal fissure ANUSOL-HC 25 MG SUPPOSITORY 0924316 HYDROCORTISONE JAYDEN (RECTAL) Inactive ANUSOL-HC 25 MG SUPPOSITORY 1 rectally twice a day as needed for hemorrhoids ANUSOL-HC 25 MG SUPPOSITORY 0237353 HYDROCORTISONE JAYDEN (RECTAL) Inactive FLONASE 50 MCG/ACT SUSP 1 spray each nostril am and hs FLONASE 50 MCG/ACT SUSP 052301 FLUTICASONE PROPIONATE Inactive DICLOFENAC SODIUM 75 MG TBEC 1 tablet by q 12 hours PRN headaches DICLOFENAC SODIUM 75 MG TBEC 749977 DICLOFENAC SODIUM Inactive PA VITAMIN D-3 2000 UNIT CAPS 1 CAP PO DAILY PA VITAMIN D-3 2000 UNIT CAPS CHOLECALCIFEROL Inactive PREVACID 30 MG CPDR Take 1 tablet by mouth daily-PRN PREVACID 30 MG CPDR 958760 LANSOPRAZOLE Inactive DOXYCYCLINE HYCLATE 100 MG TAB 1 tab twice a day for 14 days 2013 DOXYCYCLINE HYCLATE 100 MG TAB 571244 DOXYCYCLINE HYCLATE Inactive XOPENEX 1.25 MG/3ML NEBU 1 neb every 4 hours if needed for cough/congestion XOPENEX 1.25 MG/3ML NEBU LEVALBUTEROL HCL Inactive CYCLOBENZAPRINE HCL 10 MG TABS 1/2 - 1 tab by mouth three times daily if needed for spasms/pain CYCLOBENZAPRINE HCL 10 MG TABS 345836 CYCLOBENZAPRINE HCL Inactive ALBUTEROL SULFATE 0.083 % NEBU SOLN one vial per nebulizer every 4-6 hours as needed ALBUTEROL SULFATE 0.083 % NEBU SOLN 811833 ALBUTEROL SULFATE Inactive CEFTIN 500 MG TAB 1 twice a day CEFTIN 500 MG TAB 043143 CEFUROXIME AXETIL Inactive ZOFRAN ODT 4 MG TBDP 1 pill dissolved by mouth every 4 hours if needed for nausea ZOFRAN ODT 4 MG TBDP 338711 ONDANSETRON Inactive ADULT ASPIRIN EC LOW STRENGTH 81 MG TBEC Take 1 tablet by mouth daily 2014 ADULT ASPIRIN EC LOW STRENGTH 81 MG TBEC 571472 ASPIRIN Inactive BACTRIM DS 800-160 MG TAB 1 tab by mouth twice daily BACTRIM DS 800-160 MG TAB TRIMETHOPRIM-SULFAMETHOXAZOLE Inactive AZITHROMYCIN 250 MG TABS 2 po qd x 1 day, then 1 po qd x 4 days AZITHROMYCIN 250 MG TABS 9225221 AZITHROMYCIN Inactive CEFDINIR 300 MG CAPS by mouth twice a day CEFDINIR 300 MG CAPS 604672 CEFDINIR Inactive AZITHROMYCIN 250 MG TABS 2 pills on day 1, then 1 pill daily x 4 days AZITHROMYCIN 250 MG TABS 2917074 AZITHROMYCIN Inactive DOXYCYCLINE HYCLATE 100 MG CAP 1 cap by mouth twice daily DOXYCYCLINE HYCLATE 100 MG CAP 19890510 DOXYCYCLINE HYCLATE Inactive Immunizations Vaccine Administration Date Value Standard Description Seasonal influenza vaccine, injectable, containing preservative, for > 3 years old (Afluria, FluLaval, Fluzone, Fluvirin, Fluarix, Agriflu(>=18 yo)) Fluzone (>3 yrs.) [[id number]] Influenza, seasonal, injectable influenza immunization (Flu Vax) has been administered Influenza - Unspecified Formulation [CVX88] influenza virus vaccine, unspecified formulation pneumococcal immunization administered Pneumovax 23 [CVX33] pneumococcal polysaccharide vaccine, 23 valent Seasonal influenza vaccine, injectable, containing preservative, for > 3 years old (Afluria, FluLaval, Fluzone, Fluvirin, Fluarix, Agriflu(>=18 yo)) Fluzone (>3 yrs.) [DVP398] Influenza, seasonal, injectable dT (Diphtheria and Tetanus) booster given given Td(adult) unspecified formulation Boostrix (Tetanus toxoid, reduced diphtheria toxoid and acellular pertussis vaccine, adsorbed), booster Boostrix [OTD100] tetanus toxoid, reduced diphtheria toxoid, and acellular [...] Cardio IQ Advanced Lipid and Inlammation Panel /34744 - Chemistry cholesterol, serum 198 mg/dL 257-481 1631/04/30 HDL cholesterol, serum 65 mg/dL > OR=46 triglyceride, serum, fasting 82 mg/dL LDL cholesterol, serum 117 mg/dL cholesterol/HDL ratio, serum 3.0 calc < OR=5.0 Lab Report: CBC W/DIFF, Basic Metabolic Panel - Chemistry sodium, serum 144 mmol/L 639-918 4265/01/21 potassium, serum 4.2 mmol/L 3.5-5.2 chloride, serum [...] Panel - Chemistry sodium, serum 144 mmol/L 454-909 6373/12/15 potassium, serum 5.4 mmol/L 3.5-5.2 chloride, serum [...] UA - Chemistry sodium, serum 143 mmol/L 592-597 5923/10/24 potassium, serum 3.9 mmol/L 3.5-5.2 chloride, serum [...] 51 mg/dL 30-200 cholesterol, serum 173 mg/dL 226-988 6387/04/28 HDL cholesterol, serum 63 mg/dL 32-96 LDL [...] 0-19 Encounters Code Encounter Date Provider Facility CPT-68398 Level 3 Est. Patient 07:37:45 CDT Yolande Lindsay MD PhD [facility] CPT-55935 Level 3 Est. Patient 17:03:46 CDT Yolande Lindsay MD PhD [facility] CPT-63330 Level 4 Est. Patient 20:02:13 STOCK TRANSFER CLERK Yolande Lindsay MD PhD [facility] CPT-75080 Level 3 Est. Patient 16:02:07 STOCK TRANSFER CLERK Alexis Ordaz MD [facility] CPT-17117 Level 3 Est. Patient 12:41:24 STOCK TRANSFER CLERK Yolande Lindsay MD PhD [facility] CPT-01025 Level 3 Est. Patient 15:41:20 STOCK TRANSFER CLERK Yolande Lindsay MD [facility] CPT-74355 Level 3 Est. Patient 13:20:02 STOCK TRANSFER CLERK Yolande Lindsay MD [facility] CPT-79605 Level 3 Est. Patient 15:00:38 CDT Jared Og MD [facility] CPT-67525 Level 3 Est. Patient 10:22:32 CDT Yolande Lindsay MD [facility] CPT-14933 Level 3 Est. Patient 17:12:58 CDT Yolande Lindsay MD [facility]-59752 Level 4 Est. Patient 13:30:58 CDT Yolande Lindsay MD [facility] CPT-50323 Level 4 New Patient 09:02:42 CDT Jared Og MD [facility]-75156 Level 3 Est. Patient 08:19:07 CDT Yolande Lindsay MD [facility] CPT-66032 Level 3 Est. Patient 12:00:13 STOCK TRANSFER CLERK Gab Padron MD [facility] CPT-81139 Level 3 Est. Patient 16:15:23 STOCK TRANSFER CLERK Yolande Lindsay MD [facility] CPT-73209 Level 2 Est. Patient 19:47:15 CDT Yolande Lindsay MD [facility] CPT-01167 Level 3 Est. Patient 21:38:31 CDT Yolande Lindsay MD [facility] CPT-32517 Level 3 Est. Patient 10:25:12 CDT Adiel PERAZA [facility] CPT-26630 Level 4 Est. Patient 10:51:58 CDT Yolande Lindsay MD [facility] CPT-54580 Level 3 Est. Patient 14:04:55 STOCK TRANSFER CLERK Rodrigo Sarah [facility] CPT-20304 Level 3 Est. Patient 10:46:35 STOCK TRANSFER CLERK Rodrigo Sarah [facility] CPT-75028 Level 3 Est. Patient 14:24:37 STOCK TRANSFER CLERK Yolande Lindsay MD [facility] CPT-91053 Level 3 Est. Patient 17:41:58 STOCK TRANSFER CLERK Yolande Lindsay MD [facility] CPT-41226 Level 2 Est. Patient 22:01:41 STOCK TRANSFER CLERK Rodrigo Sarah [facility] CPT-19744 Level 2 Est. Patient 22:01:11 STOCK TRANSFER CLERK Rodrigo Sarah [facility] CPT-50792 Level 3 Est. Patient 10:12:29 STOCK TRANSFER CLERK Rodrigo Sarah [facility] CPT-21171 Level 3 Est. Patient 11:05:44 CDT Alexis Ordaz MD [facility] CPT-96780 Level 3 Est. Patient 14:57:20 CDT Yolande Lindsay MD [facility] CPT-89813 Level 3 Est. Patient 14:40:57 CDT Yolande Lindsay MD [facility] CPT-13729 Level 3 Est. Patient 20:55:40 CDT Yolande Lindsay MD [facility] CPT-79717 Level 3 Est. Patient 12:42:38 STOCK TRANSFER CLERK Yolande Lindsay MD [facility]-97257 Level 3 Est. Patient 11:54:49 STOCK TRANSFER CLERK Des Hines MD [facility] CPT-84996 Level 3 Est. Patient 17:06:38 CDT Dewayne PERAZA [facility] Procedures Code Procedure Name Date Entry Date Standard Description [id number] Event Monitor - Transmission 09:12:32 CDT 08/06 [id number] Event Monitor - MC review and interp 09:12:32 CDT [id number] Event Monitor - MC recording 09:12:32 CDT CPT-67329 EKG Trac and Interp 16:50:22 CDT CPT-J1030 Depo Medrol 40 mg (Methyl Prednisolone Acetate) 17:05: 54 CDT CPT-J1100 Decadron 4mg (Dexamethasone) 17:05:54 CDT CPT-07781 Abx/Therapy Injection 17:05:54 CDT CPT-J1100 Decadron 4mg (Dexamethasone) 16:55:28 CDT CPT-J1030 Depo Medrol 40 mg (Methyl Prednisolone Acetate) 16:55: 28 CDT CPT-85299 Ankle Complete - Min 3V 15:58:50 CDT CPT-54869 Knee 3V 15:58:50 CDT CPT-96595 Hip comp min 2V 15:58:50 CDT CPT-J2270 Morphine Sulfate 10 mg 14:25:44 STOCK TRANSFER CLERK CPT-J2550 Phenergan 12.5 mg (Promethazine) 14:25:44 STOCK TRANSFER CLERK CPT-99785 Abx/Therapy Injection 14:25:44 STOCK TRANSFER CLERK CPT-J2550 Phenergan 12.5 mg (Promethazine) 14:08:03 STOCK TRANSFER CLERK CPT-J2270 Morphine Sulfate 10 mg 14:08:03 STOCK TRANSFER CLERK CPT-89894 Bladder Scan 15:00:38 CDT CPT-TCMM Transitional Care Mgmt-Moderate 09:52:22 CDT CPT-J1030 Depo Medrol 40 mg (Methyl Prednisolone Acetate) 10:55: 18 CDT CPT-J1100 Decadron 4mg (Dexamethasone) 10:55:18 CDT CPT-77043 Abx/Therapy Injection 10:55:18 CDT CPT-J1030 Depo Medrol 40 mg (Methyl Prednisolone Acetate) 10:22: 32 CDT CPT-J1100 Decadron 4mg (Dexamethasone) 10:22:32 CDT CPT-36453 Postop F/U Visit 14:37:13 CDT CPT-02964 Ankle Complete - Min 3V 17:11:58 CDT CPT-28423 Foot comp min 3V 17:11:58 CDT CPT-60598 Bladder Scan 09:56:58 CDT CPT-96972 Postop F/U Visit 09:56:58 CDT CPT-37267 Cystoscopy 09:02:42 CDT CPT-00806 Bladder Scan 09:02:42 CDT CPT-93750 Abd single AP View 16:00:35 CDT CPT-54694 Administration single or combination vaccine inc oral 10 :15:43 CDT CPT-67343 Influenza split virus > age 3 10:15:43 CDT CPT-40029 Nail Avulsion 09:24:57 CDT CPT-OV Office Visit 11:15:41 CDT CPT-06958 Abx/Therapy Injection 10:51:30 CDT CPT-J3301 Kenalog 40 mg (Triamcinolone Acetonide) 10:25:12 CDT CPT-J1100 Decadron 4mg (Dexamethasone) 10:25:12 CDT CPT-09987 Anoscopy diagnostic 10:36:12 CDT CPT-OV Office Visit 15:34:31 CDT CPT-52365 Abx/Therapy Injection 08:21:15 STOCK TRANSFER CLERK CPT-J1885 Toradol 60 mg (Ketorolac) 10:46:35 STOCK TRANSFER CLERK CPT-OV Office Visit 19:51:16 STOCK TRANSFER CLERK CPT-22063 Spec Collection and Handling Fee 14:34:18 STOCK TRANSFER CLERK CPT-PV Prev. Care Visit 14:19:18 STOCK TRANSFER CLERK CPT-56474 Postop F/U Visit 14:47:51 STOCK TRANSFER CLERK CPT-88818 Postop F/U Visit 15:15:14 STOCK TRANSFER CLERK CPT-79119 Postop F/U Visit 14:41:43 CDT CPT-19732 Postop F/U Visit 15:47:46 CDT CPT-OV Office Visit 15:27:23 CDT CPT-OV Office Visit 17:20:34 CDT CPT-56503 Abx/Therapy Injection 15:05:57 CDT CPT-J1100 Decadron 8mg (Dexamethasone) 14:44:57 CDT CPT-J1040 Depo Medrol 80 mg (Methyl Prednisolone Acetate) 14:44: 57 CDT CPT-JTINJ Joint Injection 10:17:37 CDT CPT-82974 Administration 2+ single or combination vaccines inc oral 13:01:46 STOCK TRANSFER CLERK CPT-15681 Administration single or combination vaccine inc oral 13 :01:46 STOCK TRANSFER CLERK CPT-48243 Pneumovax 13:01:46 STOCK TRANSFER CLERK CPT-94671 Influenza split virus > age 3 13:01:46 STOCK TRANSFER CLERK CPT-46833 Administration single or combination vaccine inc oral 08 :56:49 CDT CPT-68856 Tdap 08:56:49 CDT
--- OUTSIDE RECORDS SUMMARY | 2017-03-21 21:56 | XMS REPORT | Clinical Summary ---
Author Author Admin, E Organization [employer] Address Unknown Phone Unavailable Allergies, Adverse Reactions, Alerts Allergy Name Reaction Description Start Date Severity Status Provider VALENTIN Critical Active Rodrigo Fracharlottel UNIT MANAGER [employer] CHLORHEXIDINE GLUCONATE tongue and gums swollen Critical Active Hoa Otto RMA NORFLEX Rash Critical Active Silvestrellina Frazell UNIT [employer] TRAZODONE HCL sees things Critical Active Dewayne [...] Ingrowing nail Hip pain, left 719.45 Resolved Yloande Lindsay MD PhD Pain in joint involving [...] MD Lumbago Cough 786.2 Active Jillina Tyrel [employer]IT [employer] Cough 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 Jillina Frazellilian UNIT MA[employer] 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 Anemia 285.9 Active Gab Padron MD Anemia, unspecified Conjunctivitis 372.30 Active Jillnacho Sarah APRN Conjunctivitis, unspecified Sinusitis 473.9 Active Silvestrellina Frazell [employer]IT [employer] Unspecified sinusitis (chronic) Nonspecific syndrome suggestive of viral illness 079.99 Active Jillina Frazell [employer]IT [employer] Unspecified viral infection Laryngitis 464.00 Active Jillina Frazell [employer]IT [employer] Acute laryngitis without mention of obstruction Abdominal [...] Flank pain, left 789.09 Active Jillina Frazell [employer]IT [employer] Abdominal pain, other specified site; multiple sites Abdominal pain, generalized 789.07 Active Jillina Farshadzell UNIT [employer] Abdominal pain, generalized Back pain, thoracic region, left 724.1 Active Jillina Frazell [employer]IT [employer] Pain in thoracic spine Abdominal pain, left [...] 1/2 tab daily for 2 days PREDNISONE 08937831813 No Longer Active Gab Padron MD Active ZOFRAN ODT 4 MG TBDP 1 po q6hr PRN Nausea ONDANSETRON 92391338007 Active Silvestrellina Tyrel GAUTAM Active IBUPROFEN 600 MG TAB 1 tablet by mouth every 6 hours for 7 days, then 1 tablet every 6 hours as needed. Take with food IBUPROFEN 78867481778 Active Jillina Frazell DAIN Active BACTRIM DS 800-160 MG TAB 1 tab by mouth twice daily TRIMETHOPRIM-SULFAMETHOXAZOLE 10290671858 No Longer Active Gab Padron MD Active ADVAIR DISKUS 250-50 MCG/DOSE AEPB 1 puff BID FLUTICASONE- SALMETEROL 83351403587 Active Rodrigo Sarah APRN Active LEVOTHYROXINE SODIUM 75 MCG TABS Take 1 tab daily LEVOTHYROXINE SODIUM 42577644638 No Longer Active Mariana HICKEYA Active SYNTHROID 88 MCG ORAL TABS Take one by mouth daily LEVOTHYROXINE SODIUM 86020280365 Active Mariana HICKEYA Active CHERATUSSIN AC 100-10 MG/5ML SYRP 1 tsp by mouth every 4 hours as needed for cough GUAIFENESIN-CODEINE 56128040960 No Longer Active Gab Padron MD Active POLYTRIM 62463-4.1 UNIT/ML-% SOLN 1 gtt to affected eye q3h x 7 days POLYMYXIN B-TRIMETHOPRIM 92841880626 No Longer Active Gab Padron MD Active FLUTICASONE PROPIONATE 50 MCG/ACT SUSP 1 to 2 sprays each nostril daily 04/21 FLUTICASONE PROPIONATE 69324975821 No Longer Active Gab Padron MD Active TRILEPTAL 600 MG TABS Take one 1 tablet in Am and 1 tablet at night OXCARBAZEPINE 33589132090 Active Gab Padron MD Active CEFDINIR 300 MG CAPS 1 po BID x 10 days CEFDINIR 38792103356 No Longer Active Rodrigo Sarah APRN Active CEFTIN 500 MG TAB 1 twice a day CEFUROXIME AXETIL 87369298051 No Longer Active Gab Padron MD Active AZITHROMYCIN 250 MG TABS 2 po qd x 1 day, then 1 po qd x 4 days AZITHROMYCIN 02093792522 No Longer Active Silvestrellnacho Sarah APRN Active CLARITIN 10 MG TAB 1 tablet by mouth daily as needed for allergies LORATADINE 41919347229 Active Silvestrellnacho Sarah APRN Active OXYCODONE HCL 5 MG ORAL CAPS 1 TAB PO Q HS OXYCODONE HCL 56714363196 No Longer Active Rodrigo Sarah APRN Active NIASPAN 500 MG ORAL CR-TABS 1 pill nightly x 1 week, then 2 pills nightly x 1 week, then 3 pills nightly x 1 week, then 4 pills nightly NIACIN (ANTIHYPERLIPIDEMIC) 30583818669 No Longer Active Silvestrebernabe Yenhossein [employer]IT [employer] Active NIACIN 500 MG TABS 1 pill by mouth nightly x 1 week, then 2 pills x 1 week, then 3 pills x 1 week, then 4 pills nightly - take after evening meal, with applesauce or an apple NIACIN 46961246134 No Longer Active Yolande Lindsay MD PhD Active FISH OIL 1000 MG CAPS 3 pills daily OMEGA-3 FATTY ACIDS 58997987716 Active Yolande Lindsay MD PhD Active TRIAMCINOLONE ACETONIDE 0.1 % CREA apply bid sparingly to rash TRIAMCINOLONE ACETONIDE 28818553112 Active Yolande Lindsay MD PhD Active FUROSEMIDE 20 MG TAB 1 tablet by mouth daily FUROSEMIDE 91403867037 Active Tisha Lambert APRN Active LISINOPRIL 20 MG ORAL TABS 1 tab by mouth daily LISINOPRIL 40290389141 Active Gab Padron MD Active FUROSEMIDE 20 MG TABS 1 pill by mouth daily, for edema FUROSEMIDE 74050837640 No Longer Active Yolande Lindsay MD PhD Active ATORVASTATIN CALCIUM 10 MG TABS 1 pill by mouth daily, for cholesterol 09/06 ATORVASTATIN CALCIUM 64376888166 Active Gab Padron MD Active CALCIUM 600+D PLUS MINERALS 600-400 MG-UNIT ORAL CHEW 1 tab by mouth daily CALCIUM CARBONATE-VIT D-MIN 12043596123 No Longer Active Yolande Lindsay MD PhD Active CYCLOBENZAPRINE HCL 10 MG TABS 1 tablet by mouth three times daily as needed for muscle spasm/pain CYCLOBENZAPRINE HCL 19864713419 Active Yolande Lindsay MD PhD Active ONDANSETRON 4 MG TBDP 1 q4h PRN nausea ONDANSETRON 42303608297 Active Yolande Lindsay MD PhD Active ADULT ASPIRIN EC LOW STRENGTH 81 MG TBEC Take 1 tablet by mouth daily 2014 ASPIRIN 37305349927 No Longer Active Yolande Lindsay MD PhD Active ZOFRAN ODT 4 MG TBDP 1 pill dissolved by mouth every 4 hours if needed for nausea ONDANSETRON 19795141452 No Longer Active Yolande Lindsay MD PhD Active CEFTIN 500 MG TAB 1 twice a day CEFUROXIME AXETIL 40531986922 No Longer Active Yolande Lindsay MD PhD Active ALBUTEROL SULFATE 0.083 % NEBU SOLN one vial per nebulizer every 4-6 hours as needed ALBUTEROL SULFATE 68004350290 No Longer Active Alexis Ordaz MD Active DOXYCYCLINE HYCLATE 100 MG CAP 1 cap by mouth twice daily DOXYCYCLINE HYCLATE 99891724372 No Longer Active Yolande Lindsay MD PhD Active CYCLOBENZAPRINE HCL 10 MG TABS 1/2 - 1 tab by mouth three times daily if needed for spasms/pain CYCLOBENZAPRINE HCL 10390488038 No Longer Active Yolande Lindsay MD PhD Active AZITHROMYCIN 250 MG TABS 2 pills on day 1, then 1 pill daily x 4 days AZITHROMYCIN 38480013829 No Longer Active Yolande Lindsay MD PhD Active XOPENEX 1.25 MG/3ML NEBU 1 neb every 4 hours if needed for cough/congestion LEVALBUTEROL HCL 59058758321 No Longer Active Yolande Lindsay MD PhD Active DOXYCYCLINE HYCLATE 100 MG TAB 1 tab twice a day for 14 days 2013 DOXYCYCLINE HYCLATE 56221955540 No Longer Active Yolande Lindsay MD PhD Active PREVACID 30 MG CPDR Take 1 tablet by mouth daily-PRN LANSOPRAZOLE 37676544412 No Longer Active Yolande Lindsay MD PhD Active PA VITAMIN D-3 2000 UNIT CAPS 1 CAP PO DAILY CHOLECALCIFEROL 24853136241 No Longer Active Yolande Lindsay MD PhD Active CEFDINIR 300 MG CAPS by mouth twice a day CEFDINIR 77118279320 No Longer Active Gab Padron MD Active TOPAMAX 50 MG TABS 1 PO twice daily TOPIRAMATE 99959137305 Active Yolande Lindsay MD PhD Active AZITHROMYCIN 250 MG TABS 2 po qd x 1 day, then 1 po qd x 4 days AZITHROMYCIN 25244590069 No Longer Active Yolande Lindsay MD PhD Active DICLOFENAC SODIUM 75 MG TBEC 1 tablet by q 12 hours PRN headaches DICLOFENAC SODIUM 91555405027 No Longer Active Yolande Lindsay MD PhD Active FLONASE 50 MCG/ACT SUSP 1 spray each nostril am and hs FLUTICASONE PROPIONATE 66558604970 No Longer Active Todd Callaway MD Active ANUSOL-HC 25 MG SUPPOSITORY 1 rectally twice a day as needed for hemorrhoids HYDROCORTISONE JAYDEN (RECTAL) 34813408633 No Longer Active Yolande Lindsay MD PhD Active ANUSOL-HC 25 MG SUPPOSITORY 1 suppository rectally each evening as needed for anal fissure HYDROCORTISONE JAYDEN (RECTAL) 35675313739 No Longer Active LONNIE Iglesias Active VALIUM 5 MG TAB 1 po 30 minutes prior to your MRI DIAZEPAM 27680049798 No Longer Active LONNIE Iglesias Active METHOCARBAMOL 750 MG TABS 1 PO QID PRN METHOCARBAMOL 46420119772 No Longer Active Daphne Wetzel APRN Active NITROSTAT 0.4 MG SUBL as directed NITROGLYCERIN 84618699311 No Longer Active Rodrigo Sarah APRN Active ROBAXIN-750 750 MG TABS 2 four times a day for 3 days as needed for muscle spasm, then 1 four times a day as needed METHOCARBAMOL 83062432343 No Longer Active Rodrigo Sarah APRN Active HYDROCODONE-ACETAMINOPHEN 5-325 MG TABS 1 q 4-6 hrs prn HYDROCODONE-ACETAMINOPHEN 96457468854 No Longer Active Rodrigo Sarah [employer]IT [employer] Active VERAPAMIL HCL CR 180 MG CR-TABS TAKE 1 TAB DAILY VERAPAMIL HCL 03319100612 No Longer Active Yolande Lindsay MD PhD Active BACTRIM DS 800-160 MG TAB 1 tab by mouth twice daily TRIMETHOPRIM-SULFAMETHOXAZOLE 63718351878 No Longer Active Yolande Lindsay MD PhD Active NEXIUM 40 MG PACK 1 by mouth daily ESOMEPRAZOLE MAGNESIUM 54744855210 No Longer Active Des Hines MD Active EPIPEN 2-CHARLETTE 0.3 MG/0.3ML OMARI as need for allergic reaction EPINEPHRINE 99796527959 Active Yolande Lindsay MD PhD Active NEXIUM 40 MG CPDR 1 PO Q D DAY ESOMEPRAZOLE MAGNESIUM 70403186872 No Longer Active Sadia Perry RN Active NEXIUM 40 MG PACK 1 by mouth daily NEXIUM 40 MG PACK ESOMEPRAZOLE MAGNESIUM Inactive VERAPAMIL HCL CR 180 MG CR-TABS TAKE 1 TAB DAILY VERAPAMIL HCL CR 180 MG CR-TABS VERAPAMIL HCL Inactive HYDROCODONE-ACETAMINOPHEN 5-325 MG TABS 1 q 4-6 hrs prn HYDROCODONE-ACETAMINOPHEN 5-325 MG TABS 916363 HYDROCODONE-ACETAMINOPHEN Inactive ROBAXIN-750 750 MG TABS 2 four times a day for 3 days as needed for muscle spasm, then 1 four times a day as needed ROBAXIN-750 750 MG TABS 794590 METHOCARBAMOL Inactive NITROSTAT 0.4 MG SUBL as directed NITROSTAT 0.4 MG SUBL NITROGLYCERIN Inactive METHOCARBAMOL 750 MG TABS 1 PO QID PRN METHOCARBAMOL 750 MG TABS 457392 METHOCARBAMOL Inactive VALIUM 5 MG TAB 1 po 30 minutes prior to your MRI VALIUM 5 MG TAB 360776 DIAZEPAM Inactive ANUSOL-HC 25 MG SUPPOSITORY 1 suppository rectally each evening as needed for anal fissure ANUSOL-HC 25 MG SUPPOSITORY 2256214 HYDROCORTISONE JAYDEN (RECTAL) Inactive ANUSOL-HC 25 MG SUPPOSITORY 1 rectally twice a day as needed for hemorrhoids ANUSOL-HC 25 MG SUPPOSITORY 5948070 HYDROCORTISONE JAYDEN (RECTAL) Inactive FLONASE 50 MCG/ACT SUSP 1 spray each nostril am and hs FLONASE 50 MCG/ACT SUSP FLUTICASONE PROPIONATE Inactive DICLOFENAC SODIUM 75 MG TBEC 1 tablet by q 12 hours PRN headaches DICLOFENAC SODIUM 75 MG TBEC 702938 DICLOFENAC SODIUM Inactive PA VITAMIN D-3 2000 UNIT CAPS 1 CAP PO DAILY PA VITAMIN D-3 2000 UNIT CAPS CHOLECALCIFEROL Inactive PREVACID 30 MG CPDR Take 1 tablet by mouth daily-PRN PREVACID 30 MG CPDR 952497 LANSOPRAZOLE Inactive DOXYCYCLINE HYCLATE 100 MG TAB 1 tab twice a day for 14 days 2013 DOXYCYCLINE HYCLATE 100 MG TAB 1302334 DOXYCYCLINE HYCLATE Inactive XOPENEX 1.25 MG/3ML NEBU 1 neb every 4 hours if needed for cough/congestion XOPENEX 1.25 MG/3ML NEBU 632500 LEVALBUTEROL HCL Inactive CYCLOBENZAPRINE HCL 10 MG TABS 1/2 - 1 tab by mouth three times daily if needed for spasms/pain CYCLOBENZAPRINE HCL 10 MG TABS 948761 CYCLOBENZAPRINE HCL Inactive ALBUTEROL SULFATE 0.083 % NEBU SOLN one vial per nebulizer every 4-6 hours as needed ALBUTEROL SULFATE 0.083 % NEBU SOLN 233334 ALBUTEROL SULFATE Inactive CEFTIN 500 MG TAB 1 twice a day CEFTIN 500 MG TAB 955831 CEFUROXIME AXETIL Inactive ZOFRAN ODT 4 MG TBDP 1 pill dissolved by mouth every 4 hours if needed for nausea ZOFRAN ODT 4 MG TBDP 689464 ONDANSETRON Inactive ADULT ASPIRIN EC LOW STRENGTH 81 MG TBEC Take 1 tablet by mouth daily 2014 ADULT ASPIRIN EC LOW STRENGTH 81 MG TBEC 429900 ASPIRIN Inactive CALCIUM 600+D PLUS MINERALS 600-400 [...] or an apple NIACIN 500 MG TABS 653532 NIACIN Inactive NIASPAN 500 MG ORAL CR-TABS 1 pill nightly x 1 week, then 2 pills nightly x 1 week, then 3 pills nightly x 1 week, then 4 pills nightly NIASPAN 500 MG ORAL CR-TABS NIACIN (ANTIHYPERLIPIDEMIC) Inactive OXYCODONE HCL 5 MG ORAL CAPS 1 TAB PO Q HS OXYCODONE HCL 5 MG ORAL CAPS 2069842 OXYCODONE HCL Inactive FLUTICASONE PROPIONATE 50 MCG/ACT SUSP 1 to 2 sprays each nostril daily 04/21 FLUTICASONE PROPIONATE 50 MCG/ACT SUSP 943141 FLUTICASONE PROPIONATE Inactive POLYTRIM 76799-6.1 UNIT/ML-% SOLN 1 gtt to affected eye q3h x 7 days POLYTRIM 04263-1.1 UNIT/ML-% SOLN 587683 POLYMYXIN B- TRIMETHOPRIM Inactive CHERATUSSIN AC 100-10 MG/5ML SYRP 1 tsp by mouth every 4 hours as needed for cough CHERATUSSIN AC 100-10 MG/5ML SYRP 559408 GUAIFENESIN-CODEINE Inactive LEVOTHYROXINE SODIUM 75 MCG TABS Take 1 tab daily LEVOTHYROXINE SODIUM 75 MCG TABS 753092 LEVOTHYROXINE SODIUM Inactive BACTRIM DS 800-160 MG TAB 1 tab by mouth twice daily BACTRIM DS 800-160 MG TAB 19820606 TRIMETHOPRIM-SULFAMETHOXAZOLE Inactive AZITHROMYCIN 250 MG TABS 2 po qd x 1 day, then 1 po qd x 4 days AZITHROMYCIN 250 MG TABS 8345740 AZITHROMYCIN Inactive CEFDINIR 300 MG CAPS by mouth twice a day CEFDINIR 300 MG CAPS 537697 CEFDINIR Inactive AZITHROMYCIN 250 MG TABS 2 pills on day 1, then 1 pill daily x 4 days AZITHROMYCIN 250 MG TABS 7905281 AZITHROMYCIN Inactive DOXYCYCLINE HYCLATE 100 MG CAP 1 cap by mouth twice daily DOXYCYCLINE HYCLATE 100 MG CAP 5860472 DOXYCYCLINE HYCLATE Inactive FUROSEMIDE 20 MG TABS 1 pill by mouth daily, for edema FUROSEMIDE 20 MG TABS 002935 FUROSEMIDE Inactive AZITHROMYCIN 250 MG TABS 2 po qd x 1 day, then 1 po qd x 4 days AZITHROMYCIN 250 MG TABS 0713772 AZITHROMYCIN Inactive CEFTIN 500 MG TAB 1 twice a day CEFTIN 500 MG TAB 430924 CEFUROXIME AXETIL Inactive CEFDINIR 300 MG CAPS [...] for 2 days PREDNISONE 20 MG TAB 860147 PREDNISONE Inactive Immunizations Vaccine Administration Date Value Standard Description Seasonal influenza vaccine, injectable, containing preservative, for > 3 years old (Afluria, FluLaval, Fluzone, Fluvirin, Fluarix, Agriflu(>=18 yo)) Fluzone (>3 yrs.) [JUU784] Influenza, seasonal, injectable influenza immunization (Flu Vax) has been administered Influenza - Unspecified Formulation [CVX88] influenza virus vaccine, unspecified formulation Seasonal influenza vaccine, injectable, containing preservative, for > 3 years old (Afluria, FluLaval, Fluzone, Fluvirin, Fluarix, Agriflu(>=18 yo)) Fluzone (>3 yrs.) [EVQ419] Influenza, seasonal, injectable pneumococcal immunization administered Pneumovax 23 [CVX33] pneumococcal polysaccharide vaccine, 23 valent dT (Diphtheria and Tetanus) booster given given Td(adult) unspecified formulation Boostrix (Tetanus toxoid, reduced diphtheria toxoid and acellular pertussis vaccine, adsorbed), booster Boostrix [IMN959] tetanus toxoid, reduced diphtheria toxoid, and acellular [...] Panel - Chemistry sodium, serum 142 mmol/L 941-259 1045/06/30 potassium, serum 4.4 mmol/L 3.5-5.2 chloride, serum 108 mmol/L 98-107 carbon dioxide, venous blood 25.1 mmol/L 21.0-32.0 blood glucose 82 mg/dL 65-110 calcium, serum 9.1 mg/dL 8.5-10.1 urea nitrogen, blood 18 mg/dL 7-18 creatinine, serum 1.31 mg/dL 0.55-1.30 Lab Report: [facility] Advanced Lipid and Inlammation Panel /00455 - Chemistry cholesterol, serum 148 mg/dL 360-857 5589/09/02 HDL cholesterol, serum 55 mg/dL > OR=46 [...] (L) - Chemistry sodium, serum 145 mmol/L 061-275 1665/09/02 potassium, serum 4.6 mmol/L 3.5-5.2 chloride, serum [...] Rate - Chemistry sodium, serum 139 mmol/L 415-884 2770/03/24 carbon dioxide, venous blood 22.4 mmol/L 21.0-32.0 [...] ... - Chemistry sodium, serum 143 mmol/L 448-651 0418/05/02 carbon dioxide, venous blood 25.6 mmol/L 21.0-32.0 [...] Negative mg/dL Negative sodium, serum 142 mmol/L 757-903 0493/07/18 carbon dioxide, venous blood 27.8 mmol/L 21.0-32.0 [...] mg/dL Encounters Code Encounter Date Provider Facility CPT-09591 Level 3 Est. Patient 11:01:51 CDT Gab Padron MD [facility] CPT-78330 Level 3 Est. Patient 15:27:02 CDT Jared Og MD [facility] [place] CPT-44152 Level 4 Est. Patient 09:25:27 CDT Gab Padron MD [facility] CPT-19698 Level 3 Est. Patient 10:29:41 CDT Rodrigo Sarah APRN [facility] CPT-85630 Level 4 Est. Patient 17:51:05 CDT Gab Padron MD [facility] CPT-76272 Level 3 Est. Patient 14:18:08 CDT Gab Padron MD [facility] CPT-05656 Level 4 Est. Patient 10:18:54 CDT Gab Padron MD [facility] CPT-63146 Level 3 Est. Patient 11:30:07 CDT Rodrigo Sarah APRN [facility] CPT-55643 Level 4 Est. Patient 21:02:30 PRINTING MANAGER Gab Padron MD [facility]-86138 Level 3 Est. Patient 11:02:19 PRINTING MANAGER Gab Padron MD [facility]-51652 Level 4 Est. Patient 22:24:31 PRINTING MANAGER Gab Padron MD [facility]-90672 Level 3 Est. Patient 18:33:46 PRINTING MANAGER Gab Padron MD [facility]-43345 Level 3 Est. Patient 16:19:11 CDT Yolande Lindsay MD [facility]-49675 Level 3 Est. Patient 18:59:14 CDT Yolande Lindsay MD [facility]-90308 Level 4 Est. Patient 21:29:26 CDT Yolande Lindsay MD [facility]-31014 Level 3 Est. Patient 07:37:45 CDT Yolande Lindsay MD [facility]-55979 Level 3 Est. Patient 17:03:46 CDT Yolande Lindsay MD [facility]-13857 Level 4 Est. Patient 20:02:13 PRINTING MANAGER Yolande Lindsay MD [facility]-46318 Level 3 Est. Patient 16:02:07 PRINTING MANAGER Alexis Ordaz MD [facility]-39929 Level 3 Est. Patient 12:41:24 PRINTING MANAGER Yolande Lindsay MD PhD [facility]-65727 Level 3 Est. Patient 15:41:20 PRINTING MANAGER Yolande Lindsay MD [facility]-59014 Level 3 Est. Patient 13:20:02 PRINTING MANAGER Yolande Lindsay MD [facility]-32990 Level 3 Est. Patient 15:00:38 CDT Jared Og MD [facility]-02170 Level 3 Est. Patient 10:22:32 CDT Yolande Lindsay MD [facility]-63363 Level 3 Est. Patient 17:12:58 CDT Yolande Lindsay MD [facility]-84005 Level 4 Est. Patient 13:30:58 CDT Yolande Lindsay MD [facility]-66504 Level 4 New Patient 09:02:42 CDT Jared Og MD [facility]-45995 Level 3 Est. Patient 08:19:07 CDT Yolande Lindsay MD [facility]-05785 Level 3 Est. Patient 12:00:13 PRINTING MANAGER Gab Padron MD [facility]-19990 Level 3 Est. Patient 16:15:23 PRINTING MANAGER Yolande Lindsay MD [facility] CPT-23088 Level 2 Est. Patient 19:47:15 CDT Yolande Lindsay MD [facility]-75278 Level 3 Est. Patient 21:38:31 CDT Yolande Lindsay MD [facility]-35159 Level 3 Est. Patient 10:25:12 CDT Adiel PERAZA [facility]-32206 Level 4 Est. Patient 10:51:58 CDT Yolande Lindsay MD [facility]-76748 Level 3 Est. Patient 14:04:55 PRINTING MANAGER Rodrigo Sarah [facility]-06440 Level 3 Est. Patient 10:46:35 PRINTING MANAGER Rodrigo Sarah [facility]-38188 Level 3 Est. Patient 14:24:37 PRINTING MANAGER Yolande Lindsay MD [facility] CPT-84256 Level 3 Est. Patient 17:41:58 PRINTING MANAGER Yolande Lindsay MD [facility] CPT-32164 Level 2 Est. Patient 22:01:41 PRINTING MANAGER Rodrigo Sarah [facility] CPT-59112 Level 2 Est. Patient 22:01:11 PRINTING MANAGER Rodrigo Sarah [facility] CPT-86936 Level 3 Est. Patient 10:12:29 PRINTING MANAGER Rodrigo Sarah [facility] CPT-69608 Level 3 Est. Patient 11:05:44 CDT Alexis Ordaz MD [facility] CPT-48936 Level 3 Est. Patient 14:57:20 CDT Yolande Lindsay MD [facility] CPT-32087 Level 3 Est. Patient 14:40:57 CDT Yolande Lindsay MD [facility] CPT-55039 Level 3 Est. Patient 20:55:40 CDT Yolande Lindsay MD [facility] CPT-04075 Level 3 Est. Patient 12:42:38 PRINTING MANAGER Yolande Lindsay MD [facility] CPT-09975 Level 3 Est. Patient 11:54:49 PRINTING MANAGER Des Hines MD [facility] CPT-86802 Level 3 Est. Patient 17:06:38 CDT Dewayne PERAZA [facility] Procedures Code Procedure Name Date Entry Date Standard Description CPT-49489 Foot, left, comp min 3V - XRAY USE ONLY 09:24:54 CDT CPT-69413 Abd single AP View - XRAY USE ONLY 11:16:17 CDT CPT-75617 T spine AP/ Lat - XRAY USE ONLY 09:34:21 CDT CPT-52860 Chest 2V Frontal and Lat - XRAY USE ONLY 10:48:51 CDT CPT-62894 LS spine comp w obliq 13:28:00 PRINTING MANAGER CPT-J1040 Depo Medrol 80 mg (Methyl Prednisolone Acetate) 10:51: 28 PRINTING MANAGER CPT-J1100 Decadron 8mg (Dexamethasone) 10:51:28 PRINTING MANAGER CPT-34631 Abx/Therapy Injection 10:51:28 PRINTING MANAGER CPT-J1100 Decadron 8mg (Dexamethasone) 21:02:30 PRINTING MANAGER CPT-J1040 Depo Medrol 80 mg (Methyl Prednisolone Acetate) 21:02: 30 PRINTING MANAGER [id number] Event Monitor - MC Transmission 09:12:32 CDT 08/06 [id number] Event Monitor - MC review and interp 09:12:32 CDT [id number] Event Monitor - MC recording 09:12:32 CDT CPT-29816 EKG Trac and Interp 16:50:22 CDT CPT-J1030 Depo Medrol 40 mg (Methyl Prednisolone Acetate) 17:05: 54 CDT CPT-J1100 Decadron 4mg (Dexamethasone) 17:05:54 CDT CPT-97212 Abx/Therapy Injection 17:05:54 CDT CPT-J1100 Decadron 4mg (Dexamethasone) 16:55:28 CDT CPT-J1030 Depo Medrol 40 mg (Methyl Prednisolone Acetate) 16:55: 28 CDT CPT-56140 Ankle Complete - Min 3V 15:58:50 CDT CPT-36444 Knee 3V 15:58:50 CDT CPT-42931 Hip comp min 2V 15:58:50 CDT CPT-J2270 Morphine Sulfate 10 mg 14:25:44 PRINTING MANAGER CPT-J2550 Phenergan 12.5 mg (Promethazine) 14:25:44 PRINTING MANAGER CPT-94946 Abx/Therapy Injection 14:25:44 PRINTING MANAGER CPT-J2550 Phenergan 12.5 mg (Promethazine) 14:08:03 PRINTING MANAGER CPT-J2270 Morphine Sulfate 10 mg 14:08:03 PRINTING MANAGER CPT-92460 Bladder Scan 15:00:38 CDT CPT-TCMM Transitional Care Mgmt-Moderate 09:52:22 CDT CPT-J1030 Depo Medrol 40 mg (Methyl Prednisolone Acetate) 10:55: 18 CDT CPT-J1100 Decadron 4mg (Dexamethasone) 10:55:18 CDT CPT-40604 Abx/Therapy Injection 10:55:18 CDT CPT-J1030 Depo Medrol 40 mg (Methyl Prednisolone Acetate) 10:22: 32 CDT CPT-J1100 Decadron 4mg (Dexamethasone) 10:22:32 CDT CPT-87482 Postop F/U Visit 14:37:13 CDT CPT-25580 Ankle Complete - Min 3V 17:11:58 CDT CPT-02756 Foot comp min 3V 17:11:58 CDT CPT-49088 Bladder Scan 09:56:58 CDT CPT-31076 Postop F/U Visit 09:56:58 CDT CPT-14141 Cystoscopy 09:02:42 CDT CPT-34215 Bladder Scan 09:02:42 CDT CPT-65484 Abd single AP View 16:00:35 CDT CPT-90894 Administration single or combination vaccine inc oral 10 :15:43 CDT CPT-29209 Influenza split virus > age 3 10:15:43 CDT CPT-08779 Nail Avulsion 09:24:57 CDT CPT-OV Office Visit 11:15:41 CDT CPT-12376 Abx/Therapy Injection 10:51:30 CDT CPT-J3301 Kenalog 40 mg (Triamcinolone Acetonide) 10:25:12 CDT CPT-J1100 Decadron 4mg (Dexamethasone) 10:25:12 CDT CPT-06437 Anoscopy diagnostic 10:36:12 CDT CPT-OV Office Visit 15:34:31 CDT CPT-82934 Abx/Therapy Injection 08:21:15 PRINTING MANAGER CPT-J1885 Toradol 60 mg (Ketorolac) 10:46:35 PRINTING MANAGER CPT-OV Office Visit 19:51:16 PRINTING MANAGER CPT-71853 Spec Collection and Handling Fee 14:34:18 PRINTING MANAGER CPT-PV Prev. Care Visit 14:19:18 PRINTING MANAGER CPT-80176 Postop F/U Visit 14:47:51 PRINTING MANAGER CPT-35810 Postop F/U Visit 15:15:14 PRINTING MANAGER CPT-31343 Postop F/U Visit 14:41:43 CDT CPT-90754 Postop F/U Visit 15:47:46 CDT CPT-OV Office Visit 15:27:23 CDT CPT-OV Office Visit 17:20:34 CDT CPT-25174 Abx/Therapy Injection 15:05:57 CDT CPT-J1100 Decadron 8mg (Dexamethasone) 14:44:57 CDT CPT-J1040 Depo Medrol 80 mg (Methyl Prednisolone Acetate) 14:44: 57 CDT CPT-JTINJ Joint Injection 10:17:37 CDT CPT-06142 Administration 2+ single or combination vaccines inc oral 13:01:46 PRINTING MANAGER CPT-49984 Administration single or combination vaccine inc oral 13 :01:46 PRINTING MANAGER CPT-15907 Pneumovax 13:01:46 PRINTING MANAGER CPT-36191 Influenza split virus > age 3 13:01:46 PRINTING MANAGER CPT-93843 Administration single or combination vaccine inc oral 08 :56:49 CDT CPT-14375 Tdap 08:56:49 CDT
--- OUTSIDE RECORDS SUMMARY | 2017-03-21 21:59 | XMS REPORT | Clinical Summary ---
Author Author Admin, MARGRET Organization [employer] Address Unknown Phone Unavailable Allergies, Adverse Reactions, Alerts Allergy Name Reaction Description Start Date Severity Status Provider VALENTIN Critical Active Rodrigo Montemayorl SEAM SE[employer]ER CHLORHEXIDINE GLUCONATE tongue and gums swollen Critical Active Hoa Kabaford RMA NORFLEX Rash Critical Active Rowenaina Farshadzell SEAM [employer]ER TRAZODONE HCL sees things Critical Active Dewayne [...] and unspecified hyperlipidemia ABDOMINAL PAIN 789.00 Resolved Yolaned Lindsay MD PhD Abdominal pain, unspecified site [...] infarction, hx of 412 Active Hoa Otto [facility] Old myocardial infarction Pelvic pain 789.09 Active Yolande Lindsay MD PhD Abdominal pain, other specified site; multiple sites Edema 782.3 Active Yolande Lindsay MD PhD Edema Rash 782.1 Active Yolande Lindsay MD PhD Rash and other nonspecific skin eruption Back pain, lumbar 724.2 Active Gab Padron MD Lumbago Cough 786.2 Active Jillina Tyrel SEAM SEWER Cough 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 Jillina Frazellilian SEAM SEWER 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 Anemia 285.9 Active Gab Padron MD Anemia, unspecified Conjunctivitis 372.30 Active Jillina Tyrel SEAM SEWER Conjunctivitis, unspecified Sinusitis 473.9 Active Jillina Frazell SEAM SEWER Unspecified sinusitis (chronic) Nonspecific syndrome suggestive of viral illness 079.99 Active Rodrigo Sarah APRN Unspecified viral infection Laryngitis 464.00 Active Jillina Tyrel SEAM SEWER Acute laryngitis without mention of obstruction Abdominal [...] 1/2 tab daily for 2 days PREDNISONE 50569198111 No Longer Active Gab Padron MD Active ZOFRAN ODT 4 MG TBDP 1 po q6hr PRN Nausea ONDANSETRON 02935280157 Active Jillina Frazell SEAM SEWER Active IBUPROFEN 600 MG TAB 1 tablet by mouth every 6 hours for 7 days, then 1 tablet every 6 hours as needed. Take with food IBUPROFEN 18942517161 Active Jillina Frazell SEAM SEWER Active BACTRIM DS 800-160 MG TAB 1 tab by mouth twice daily TRIMETHOPRIM-SULFAMETHOXAZOLE 34820036104 No Longer Active Gab Padron MD Active ADVAIR DISKUS 250-50 MCG/DOSE AEPB 1 puff BID FLUTICASONE- SALMETEROL 21276112784 Active Rodrigo Sarah APRN Active LEVOTHYROXINE SODIUM 75 MCG TABS Take 1 tab daily LEVOTHYROXINE SODIUM 14575543538 No Longer Active Mariana FLEMING Active SYNTHROID 88 MCG ORAL TABS Take one by mouth daily LEVOTHYROXINE SODIUM 70293801250 Active Mariana FLEMING Active CHERATUSSIN AC 100-10 MG/5ML SYRP 1 tsp by mouth every 4 hours as needed for cough GUAIFENESIN-CODEINE 70585577751 No Longer Active Gab Padron MD Active POLYTRIM 75631-5.1 UNIT/ML-% SOLN 1 gtt to affected eye q3h x 7 days POLYMYXIN B-TRIMETHOPRIM 30147031714 No Longer Active Gab Padron MD Active FLUTICASONE PROPIONATE 50 MCG/ACT SUSP 1 to 2 sprays each nostril daily 04/21 FLUTICASONE PROPIONATE 31289397712 No Longer Active Gab Padron MD Active TRILEPTAL 600 MG TABS Take one 1 tablet in Am and 1 tablet at night OXCARBAZEPINE 48895269697 Active Gab Padron MD Active CEFDINIR 300 MG CAPS 1 po BID x 10 days CEFDINIR 92883731410 No Longer Active Rodrigo Sarah APRN Active CEFTIN 500 MG TAB 1 twice a day CEFUROXIME AXETIL 94195418076 No Longer Active Gab Padron MD Active AZITHROMYCIN 250 MG TABS 2 po qd x 1 day, then 1 po qd x 4 days AZITHROMYCIN 77758849236 No Longer Active Rodrigo Sarah APRN Active CLARITIN 10 MG TAB 1 tablet by mouth daily as needed for allergies LORATADINE 61710057400 Active Rodrigo Sarah APRN Active OXYCODONE HCL 5 MG ORAL CAPS 1 TAB PO Q HS OXYCODONE HCL 27748262828 No Longer Active Rodrigo Sarah APRN Active NIASPAN 500 MG ORAL CR-TABS 1 pill nightly x 1 week, then 2 pills nightly x 1 week, then 3 pills nightly x 1 week, then 4 pills nightly NIACIN (ANTIHYPERLIPIDEMIC) 86708342132 No Longer Active Rodrigo Sarah APRN Active NIACIN 500 MG TABS 1 pill by mouth nightly x 1 week, then 2 pills x 1 week, then 3 pills x 1 week, then 4 pills nightly - take after evening meal, with applesauce or an apple NIACIN 12811843412 No Longer Active Yolande Lindsay MD PhD Active FISH OIL 1000 MG CAPS 3 pills daily OMEGA-3 FATTY ACIDS 62907396030 Active Yolande Lindsay MD PhD Active TRIAMCINOLONE ACETONIDE 0.1 % CREA apply bid sparingly to rash TRIAMCINOLONE ACETONIDE 71104786005 Active Yolande Lindsay MD PhD Active FUROSEMIDE 20 MG TAB 1 tablet by mouth daily FUROSEMIDE 86358956783 Active Tisha Lambert APRN Active LISINOPRIL 20 MG ORAL TABS 1 tab by mouth daily LISINOPRIL 67542494271 Active Gab Padron MD Active FUROSEMIDE 20 MG TABS 1 pill by mouth daily, for edema FUROSEMIDE 39287668175 No Longer Active Yolande Lindsay MD PhD Active ATORVASTATIN CALCIUM 10 MG TABS 1 pill by mouth daily, for cholesterol 09/06 ATORVASTATIN CALCIUM 56985023930 Active Gab Padron MD Active CALCIUM 600+D PLUS MINERALS 600-400 MG-UNIT ORAL CHEW 1 tab by mouth daily CALCIUM CARBONATE-VIT D-MIN 54890820022 No Longer Active Yolande Lindsay MD PhD Active CYCLOBENZAPRINE HCL 10 MG TABS 1 tablet by mouth three times daily as needed for muscle spasm/pain CYCLOBENZAPRINE HCL 32689706681 Active Yolande Lindsay MD PhD Active ONDANSETRON 4 MG TBDP 1 q4h PRN nausea ONDANSETRON 62836515631 Active Yolande Lindsay MD PhD Active ADULT ASPIRIN EC LOW STRENGTH 81 MG TBEC Take 1 tablet by mouth daily 2014 ASPIRIN 14863456668 No Longer Active Yolande Lindsay MD PhD Active ZOFRAN ODT 4 MG TBDP 1 pill dissolved by mouth every 4 hours if needed for nausea ONDANSETRON 98951822572 No Longer Active Yolande Lindsay MD PhD Active CEFTIN 500 MG TAB 1 twice a day CEFUROXIME AXETIL 59616078218 No Longer Active Yolande Lindsay MD PhD Active ALBUTEROL SULFATE 0.083 % NEBU SOLN one vial per nebulizer every 4-6 hours as needed ALBUTEROL SULFATE 23548975495 No Longer Active Alexis Ordaz MD Active DOXYCYCLINE HYCLATE 100 MG CAP 1 cap by mouth twice daily DOXYCYCLINE HYCLATE 59938188668 No Longer Active Yolande Lindsay MD PhD Active CYCLOBENZAPRINE HCL 10 MG TABS 1/2 - 1 tab by mouth three times daily if needed for spasms/pain CYCLOBENZAPRINE HCL 18618677267 No Longer Active Yolande Lindsay MD PhD Active AZITHROMYCIN 250 MG TABS 2 pills on day 1, then 1 pill daily x 4 days AZITHROMYCIN 53657818017 No Longer Active Yolande Lindsay MD PhD Active XOPENEX 1.25 MG/3ML NEBU 1 neb every 4 hours if needed for cough/congestion LEVALBUTEROL HCL 02029960339 No Longer Active Yolande Lindsay MD PhD Active DOXYCYCLINE HYCLATE 100 MG TAB 1 tab twice a day for 14 days 2013 DOXYCYCLINE HYCLATE 38133807140 No Longer Active Yolande Lindsay MD PhD Active PREVACID 30 MG CPDR Take 1 tablet by mouth daily-PRN LANSOPRAZOLE 02149675986 No Longer Active Yolande Lindsay MD PhD Active PA VITAMIN D-3 2000 UNIT CAPS 1 CAP PO DAILY CHOLECALCIFEROL 20157020654 No Longer Active Yolande Lindsay MD PhD Active CEFDINIR 300 MG CAPS by mouth twice a day CEFDINIR 77780436934 No Longer Active Gab Padron MD Active TOPAMAX 50 MG TABS 1 PO twice daily TOPIRAMATE 22109594582 Active Yolande Lindsay MD PhD Active AZITHROMYCIN 250 MG TABS 2 po qd x 1 day, then 1 po qd x 4 days AZITHROMYCIN 46937199751 No Longer Active Yolande Lindsay MD PhD Active DICLOFENAC SODIUM 75 MG TBEC 1 tablet by q 12 hours PRN headaches DICLOFENAC SODIUM 26982468375 No Longer Active Yolande Lindsay MD PhD Active FLONASE 50 MCG/ACT SUSP 1 spray each nostril am and hs FLUTICASONE PROPIONATE 95839574858 No Longer Active Todd Callaway MD Active ANUSOL-HC 25 MG SUPPOSITORY 1 rectally twice a day as needed for hemorrhoids HYDROCORTISONE JAYDEN (RECTAL) 40773411980 No Longer Active Yolande Lindsay MD PhD Active ANUSOL-HC 25 MG SUPPOSITORY 1 suppository rectally each evening as needed for anal fissure HYDROCORTISONE JAYDEN (RECTAL) 56365251442 No Longer Active LONNIE Iglesias Active VALIUM 5 MG TAB 1 po 30 minutes prior to your MRI DIAZEPAM 98973686940 No Longer Active LONNIE Iglesias Active METHOCARBAMOL 750 MG TABS 1 PO QID PRN METHOCARBAMOL 83709001067 No Longer Active Dahpne Wetzel APRN Active NITROSTAT 0.4 MG SUBL as directed NITROGLYCERIN 95595802056 No Longer Active Rodrigo Yenzell SEAM SEWER Active ROBAXIN-750 750 MG TABS 2 four times a day for 3 days as needed for muscle spasm, then 1 four times a day as needed METHOCARBAMOL 30390637759 No Longer Active Silvestrellina Tyrel ZAPATAN Active HYDROCODONE-ACETAMINOPHEN 5-325 MG TABS 1 q 4-6 hrs prn HYDROCODONE-ACETAMINOPHEN 15286194938 No Longer Active Silvestrellina Tyrel ZAPATAN Active VERAPAMIL HCL CR 180 MG CR-TABS TAKE 1 TAB DAILY VERAPAMIL HCL 92745215455 No Longer Active Yolande Lindsay MD PhD Active BACTRIM DS 800-160 MG TAB 1 tab by mouth twice daily TRIMETHOPRIM-SULFAMETHOXAZOLE 85220946770 No Longer Active Yolande Lindsay MD PhD Active NEXIUM 40 MG PACK 1 by mouth daily ESOMEPRAZOLE MAGNESIUM 76767911333 No Longer Active Des Hines MD Active EPIPEN 2-CHARLETTE 0.3 MG/0.3ML OMARI as need for allergic reaction EPINEPHRINE 80032879274 Active Yolande Lindsay MD PhD Active NEXIUM 40 MG CPDR 1 PO Q D DAY ESOMEPRAZOLE MAGNESIUM 78187399781 No Longer Active Sadia Perry RN Active NEXIUM 40 MG PACK 1 by mouth daily NEXIUM 40 MG PACK ESOMEPRAZOLE MAGNESIUM Inactive VERAPAMIL HCL CR 180 MG CR-TABS TAKE 1 TAB DAILY VERAPAMIL HCL CR 180 MG CR-TABS VERAPAMIL HCL Inactive HYDROCODONE-ACETAMINOPHEN 5-325 MG TABS 1 q 4-6 hrs prn HYDROCODONE-ACETAMINOPHEN 5-325 MG TABS 153961 HYDROCODONE-ACETAMINOPHEN Inactive ROBAXIN-750 750 MG TABS 2 four times a day for 3 days as needed for muscle spasm, then 1 four times a day as needed ROBAXIN-750 750 MG TABS 738505 METHOCARBAMOL Inactive NITROSTAT 0.4 MG SUBL as directed NITROSTAT 0.4 MG SUBL 666767 NITROGLYCERIN Inactive METHOCARBAMOL 750 MG TABS 1 PO QID PRN METHOCARBAMOL 750 MG TABS 157422 METHOCARBAMOL Inactive VALIUM 5 MG TAB 1 po 30 minutes prior to your MRI VALIUM 5 MG TAB 687736 DIAZEPAM Inactive ANUSOL-HC 25 MG SUPPOSITORY 1 suppository rectally each evening as needed for anal fissure ANUSOL-HC 25 MG SUPPOSITORY 9971226 HYDROCORTISONE JAYDEN (RECTAL) Inactive ANUSOL-HC 25 MG SUPPOSITORY 1 rectally twice a day as needed for hemorrhoids ANUSOL-HC 25 MG SUPPOSITORY 5571522 HYDROCORTISONE JAYDEN (RECTAL) Inactive FLONASE 50 MCG/ACT SUSP 1 spray each nostril am and hs FLONASE 50 MCG/ACT SUSP FLUTICASONE PROPIONATE Inactive DICLOFENAC SODIUM 75 MG TBEC 1 tablet by q 12 hours PRN headaches DICLOFENAC SODIUM 75 MG TBEC 793699 DICLOFENAC SODIUM Inactive PA VITAMIN D-3 2000 UNIT CAPS 1 CAP PO DAILY PA VITAMIN D-3 2000 UNIT CAPS CHOLECALCIFEROL Inactive PREVACID 30 MG CPDR Take 1 tablet by mouth daily-PRN PREVACID 30 MG CPDR 161742 LANSOPRAZOLE Inactive DOXYCYCLINE HYCLATE 100 MG TAB 1 tab twice a day for 14 days 2013 DOXYCYCLINE HYCLATE 100 MG TAB 5406714 DOXYCYCLINE HYCLATE Inactive XOPENEX 1.25 MG/3ML NEBU 1 neb every 4 hours if needed for cough/congestion XOPENEX 1.25 MG/3ML NEBU 065670 LEVALBUTEROL HCL Inactive CYCLOBENZAPRINE HCL 10 MG TABS 1/2 - 1 tab by mouth three times daily if needed for spasms/pain CYCLOBENZAPRINE HCL 10 MG TABS 680436 CYCLOBENZAPRINE HCL Inactive ALBUTEROL SULFATE 0.083 % NEBU SOLN one vial per nebulizer every 4-6 hours as needed ALBUTEROL SULFATE 0.083 % NEBU SOLN 209583 ALBUTEROL SULFATE Inactive CEFTIN 500 MG TAB 1 twice a day CEFTIN 500 MG TAB 624143 CEFUROXIME AXETIL Inactive ZOFRAN ODT 4 MG TBDP 1 pill dissolved by mouth every 4 hours if needed for nausea ZOFRAN ODT 4 MG TBDP 633060 ONDANSETRON Inactive ADULT ASPIRIN EC LOW STRENGTH 81 MG TBEC Take 1 tablet by mouth daily 2014 ADULT ASPIRIN EC LOW STRENGTH 81 MG TBEC 588901 ASPIRIN Inactive CALCIUM 600+D PLUS MINERALS 600-400 [...] or an apple NIACIN 500 MG TABS 849382 NIACIN Inactive NIASPAN 500 MG ORAL CR-TABS 1 pill nightly x 1 week, then 2 pills nightly x 1 week, then 3 pills nightly x 1 week, then 4 pills nightly NIASPAN 500 MG ORAL CR-TABS NIACIN (ANTIHYPERLIPIDEMIC) Inactive OXYCODONE HCL 5 MG ORAL CAPS 1 TAB PO Q HS OXYCODONE HCL 5 MG ORAL CAPS 2292199 OXYCODONE HCL Inactive FLUTICASONE PROPIONATE 50 MCG/ACT SUSP 1 to 2 sprays each nostril daily 04/21 FLUTICASONE PROPIONATE 50 MCG/ACT SUSP 3303723 FLUTICASONE PROPIONATE Inactive POLYTRIM 84449-4.1 UNIT/ML-% SOLN 1 gtt to affected eye q3h x 7 days POLYTRIM 39702-5.1 UNIT/ML-% SOLN 585124 POLYMYXIN B- TRIMETHOPRIM Inactive CHERATUSSIN AC 100-10 MG/5ML SYRP 1 tsp by mouth every 4 hours as needed for cough CHERATUSSIN AC 100-10 MG/5ML SYRP 624650 GUAIFENESIN-CODEINE Inactive LEVOTHYROXINE SODIUM 75 MCG TABS Take 1 tab daily LEVOTHYROXINE SODIUM 75 MCG TABS 574620 LEVOTHYROXINE SODIUM Inactive BACTRIM DS 800-160 MG TAB 1 tab by mouth twice daily BACTRIM DS 800-160 MG TAB 493255 TRIMETHOPRIM-SULFAMETHOXAZOLE Inactive AZITHROMYCIN 250 MG TABS 2 po qd x 1 day, then 1 po qd x 4 days AZITHROMYCIN 250 MG TABS 1475971 AZITHROMYCIN Inactive CEFDINIR 300 MG CAPS by mouth twice a day CEFDINIR 300 MG CAPS 233322 CEFDINIR Inactive AZITHROMYCIN 250 MG TABS 2 pills on day 1, then 1 pill daily x 4 days AZITHROMYCIN 250 MG TABS 4117679 AZITHROMYCIN Inactive DOXYCYCLINE HYCLATE 100 MG CAP 1 cap by mouth twice daily DOXYCYCLINE HYCLATE 100 MG CAP 8637739 DOXYCYCLINE HYCLATE Inactive FUROSEMIDE 20 MG TABS 1 pill by mouth daily, for edema FUROSEMIDE 20 MG TABS 900506 FUROSEMIDE Inactive AZITHROMYCIN 250 MG TABS 2 po qd x 1 day, then 1 po qd x 4 days AZITHROMYCIN 250 MG TABS 3240951 AZITHROMYCIN Inactive CEFTIN 500 MG TAB 1 twice a day CEFTIN 500 MG TAB 850311 CEFUROXIME AXETIL Inactive CEFDINIR 300 MG CAPS 1 po BID x 10 days CEFDINIR 300 MG CAPS 325226 CEFDINIR Inactive BACTRIM DS 800-160 MG TAB 1 tab by mouth twice daily BACTRIM DS 800-160 MG TAB 300950 TRIMETHOPRIM-SULFAMETHOXAZOLE Inactive PREDNISONE 20 MG TAB 2 tabs daily for 3 days, 1 tab daily for 3 days, 1/2 tab daily for 2 days PREDNISONE 20 MG TAB 595959 PREDNISONE Inactive Immunizations Vaccine Administration Date Value Standard Description Seasonal influenza vaccine, injectable, containing preservative, for > 3 years old (Afluria, FluLaval, Fluzone, Fluvirin, Fluarix, Agriflu(>=18 yo)) Fluzone (>3 yrs.) [[id number]] Influenza, seasonal, injectable influenza immunization (Flu Vax) has been administered Influenza - Unspecified Formulation [CVX88] influenza virus vaccine, unspecified formulation Seasonal influenza vaccine, injectable, containing preservative, for > 3 years old (Afluria, FluLaval, Fluzone, Fluvirin, Fluarix, Agriflu(>=18 yo)) Fluzone (>3 yrs.) [RYA524] Influenza, seasonal, injectable pneumococcal immunization administered Pneumovax 23 [CVX33] pneumococcal polysaccharide vaccine, 23 valent dT (Diphtheria and Tetanus) booster given given Td(adult) unspecified formulation Boostrix (Tetanus toxoid, reduced diphtheria toxoid and acellular pertussis vaccine, adsorbed), booster Boostrix [QFG005] tetanus toxoid, reduced diphtheria toxoid, and acellular [...] Panel - Chemistry sodium, serum 142 mmol/L 636-975 7976/06/30 potassium, serum 4.4 mmol/L 3.5-5.2 chloride, serum [...] Rate - Chemistry sodium, serum 139 mmol/L 473-485 0878/03/24 carbon dioxide, venous blood 22.4 mmol/L 21.0-32.0 [...] ... - Chemistry sodium, serum 143 mmol/L 946-828 5255/05/02 carbon dioxide, venous blood 25.6 mmol/L 21.0-32.0 [...] dipstick Negative Negative sodium, serum 142 mmol/L 811-602 7678/07/18 carbon dioxide, venous blood 27.8 mmol/L 21.0-32.0 [...] negative Encounters Code Encounter Date Provider Facility CPT-56057 Level 4 Est. Patient 16:31:27 CDT Gab Padron MD [facility] CPT-21256 Level 2 Est. Patient 12:23:38 CDT Jared Og MD [facility] CPT-07531 Level 3 Est. Patient 11:01:51 CDT Gab Padron MD [facility] CPT-81819 Level 3 Est. Patient 15:27:02 CDT Jared Og MD [facility] CPT-35154 Level 4 Est. Patient 09:25:27 CDT Gab Padron MD [facility] CPT-32569 Level 3 Est. Patient 10:29:41 CDT Rodrigo Sarah [facility] CPT-52585 Level 4 Est. Patient 17:51:05 CDT Gab Padron MD [facility] CPT-18145 Level 3 Est. Patient 14:18:08 CDT Gab Padron MD [facility] CPT-85130 Level 4 Est. Patient 10:18:54 CDT Gab Padron MD [facility] CPT-69122 Level 3 Est. Patient 11:30:07 CDT Rodrigo Sarah [facility] CPT-71838 Level 4 Est. Patient 21:02:30 REGISTERED TRAVEL NURSE Gab Padron MD [facility] CPT-92430 Level 3 Est. Patient 11:02:19 REGISTERED TRAVEL NURSE Gab Padron MD [facility] CPT-30976 Level 4 Est. Patient 22:24:31 REGISTERED TRAVEL NURSE Gab Padron MD [facility] CPT-83559 Level 3 Est. Patient 18:33:46 REGISTERED TRAVEL NURSE Gab Padron MD [facility] CPT-86378 Level 3 Est. Patient 16:19:11 CDT Yolande Lindsay MD [facility]-69767 Level 3 Est. Patient 18:59:14 CDT Yolande Lindsay MD [facility]-67032 Level 4 Est. Patient 21:29:26 CDT Yolande Lindsay MD [facility]-14390 Level 3 Est. Patient 07:37:45 CDT Yolande Lindsay MD [facility]-96196 Level 3 Est. Patient 17:03:46 CDT Yolande Lindsay MD [facility]-93425 Level 4 Est. Patient 20:02:13 REGISTERED TRAVEL NURSE Yolande Lindsay MD [facility]-72644 Level 3 Est. Patient 16:02:07 REGISTERED TRAVEL NURSE Alexis Ordaz MD [facility] [place][note 2]-15344 Level 3 Est. Patient 12:41:24 REGISTERED TRAVEL NURSE Yolande Lindsay MD [facility]-22853 Level 3 Est. Patient 15:41:20 REGISTERED TRAVEL NURSE Yolande Lindsay MD [facility]-19457 Level 3 Est. Patient 13:20:02 REGISTERED TRAVEL NURSE Yolande Lindsay MD [facility]-47302 Level 3 Est. Patient 15:00:38 CDT Jared Og MD [facility]-63319 Level 3 Est. Patient 10:22:32 CDT Yolande Lindsay MD [facility]-57204 Level 3 Est. Patient 17:12:58 CDT Yolande Lindsay MD [facility]-07897 Level 4 Est. Patient 13:30:58 CDT Yolande Lindsay MD [facility]-19698 Level 4 New Patient 09:02:42 CDT Jared Og MD [facility]-20414 Level 3 Est. Patient 08:19:07 CDT Yolande Lindsay MD [facility]-34915 Level 3 Est. Patient 12:00:13 REGISTERED TRAVEL NURSE Gab Padron MD [facility] [place][note 2]-77101 Level 3 Est. Patient 16:15:23 REGISTERED TRAVEL NURSE Yolande Lindsay MD [facility]92027 Level 2 Est. Patient 19:47:15 CDT Yolande Lindsay MD [facility]72825 Level 3 Est. Patient 21:38:31 CDT Yolande Lindsay MD [facility]12912 Level 3 Est. Patient 10:25:12 CDT Adiel PERAZA [facility] [place][note 2]-35223 Level 4 Est. Patient 10:51:58 CDT Yolande Lindsay MD [facility]-75837 Level 3 Est. Patient 14:04:55 REGISTERED TRAVEL NURSE Rodrigo Sarah [facility]-39500 Level 3 Est. Patient 10:46:35 REGISTERED TRAVEL NURSE Rodrigo Sarah [facility]-92403 Level 3 Est. Patient 14:24:37 REGISTERED TRAVEL NURSE Yolande Lindsay MD [facility]-62404 Level 3 Est. Patient 17:41:58 REGISTERED TRAVEL NURSE Yolande Lindsay MD [facility]84756 Level 2 Est. Patient 22:01:41 REGISTERED TRAVEL NURSE Rodrigo Sarah [facility]-80896 Level 2 Est. Patient 22:01:11 REGISTERED TRAVEL NURSE Rodrigo Sarah [facility]-24106 Level 3 Est. Patient 10:12:29 REGISTERED TRAVEL NURSE Rodrigo Sarah [facility]-22433 Level 3 Est. Patient 11:05:44 CDT Alexis Ordaz MD [facility] CPT-17519 Level 3 Est. Patient 14:57:20 CDT Yolande Lindsay MD [facility] CPT-50033 Level 3 Est. Patient 14:40:57 CDT Yolande Lindsay MD [facility] CPT-10573 Level 3 Est. Patient 20:55:40 CDT Yolande Lindsay MD [facility] CPT-55608 Level 3 Est. Patient 12:42:38 REGISTERED TRAVEL NURSE Yolande Lindsay MD [facility] CPT-90360 Level 3 Est. Patient 11:54:49 REGISTERED TRAVEL NURSE Des Hines MD [facility] CPT-65218 Level 3 Est. Patient 17:06:38 CDT Dewayne PERAZA [facility] Procedures Code Procedure Name Date Entry Date Standard Description CPT-93535 First Vx - Ix admin via ID IM or jet injects without counseling by physician 11:52:31 CDT CPT-47617 Fluzone Preservative Free Intramuscular Suspension 11:52 :31 CDT CPT-38804 Foot, left, comp min 3V - XRAY USE ONLY 09:24:54 CDT CPT-09706 Abd single AP View - XRAY USE ONLY 11:16:17 CDT CPT-30173 T spine AP/ Lat - XRAY USE ONLY 09:34:21 CDT CPT-73577 Chest 2V Frontal and Lat - XRAY USE ONLY 10:48:51 CDT CPT-36299 LS spine comp w obliq 13:28:00 REGISTERED TRAVEL NURSE CPT-J1040 Depo Medrol 80 mg (Methyl Prednisolone Acetate) 10:51: 28 REGISTERED TRAVEL NURSE CPT-J1100 Decadron 8mg (Dexamethasone) 10:51:28 REGISTERED TRAVEL NURSE CPT-44995 Abx/Therapy Injection 10:51:28 REGISTERED TRAVEL NURSE CPT-J1100 Decadron 8mg (Dexamethasone) 21:02:30 REGISTERED TRAVEL NURSE CPT-J1040 Depo Medrol 80 mg (Methyl Prednisolone Acetate) 21:02: 30 REGISTERED TRAVEL NURSE [id number] Event Monitor - MC Transmission 09:12:32 CDT 08/06 [id number] Event Monitor - MC review and interp 09:12:32 CDT [id number] Event Monitor - MC recording 09:12:32 CDT CPT-53518 EKG Trac and Interp 16:50:22 CDT CPT-J1030 Depo Medrol 40 mg (Methyl Prednisolone Acetate) 17:05: 54 CDT CPT-J1100 Decadron 4mg (Dexamethasone) 17:05:54 CDT CPT-92876 Abx/Therapy Injection 17:05:54 CDT CPT-J1100 Decadron 4mg (Dexamethasone) 16:55:28 CDT CPT-J1030 Depo Medrol 40 mg (Methyl Prednisolone Acetate) 16:55: 28 CDT CPT-16275 Ankle Complete - Min 3V 15:58:50 CDT CPT-17128 Knee 3V 15:58:50 CDT CPT-03068 Hip comp min 2V 15:58:50 CDT CPT-J2270 Morphine Sulfate 10 mg 14:25:44 REGISTERED TRAVEL NURSE CPT-J2550 Phenergan 12.5 mg (Promethazine) 14:25:44 REGISTERED TRAVEL NURSE CPT-30648 Abx/Therapy Injection 14:25:44 REGISTERED TRAVEL NURSE CPT-J2550 Phenergan 12.5 mg (Promethazine) 14:08:03 REGISTERED TRAVEL NURSE CPT-J2270 Morphine Sulfate 10 mg 14:08:03 REGISTERED TRAVEL NURSE CPT-48620 Bladder Scan 15:00:38 CDT CPT-TCMM Transitional Care Mgmt-Moderate 09:52:22 CDT CPT-J1030 Depo Medrol 40 mg (Methyl Prednisolone Acetate) 10:55: 18 CDT CPT-J1100 Decadron 4mg (Dexamethasone) 10:55:18 CDT CPT-10618 Abx/Therapy Injection 10:55:18 CDT CPT-J1030 Depo Medrol 40 mg (Methyl Prednisolone Acetate) 10:22: 32 CDT CPT-J1100 Decadron 4mg (Dexamethasone) 10:22:32 CDT CPT-84590 Postop F/U Visit 14:37:13 CDT CPT-55644 Ankle Complete - Min 3V 17:11:58 CDT CPT-61440 Foot comp min 3V 17:11:58 CDT CPT-74545 Bladder Scan 09:56:58 CDT CPT-81099 Postop F/U Visit 09:56:58 CDT CPT-19771 Cystoscopy 09:02:42 CDT CPT-23117 Bladder Scan 09:02:42 CDT CPT-10261 Abd single AP View 16:00:35 CDT CPT-86250 Administration single or combination vaccine inc oral 10 :15:43 CDT CPT-18659 Influenza split virus > age 3 10:15:43 CDT CPT-26767 Nail Avulsion 09:24:57 CDT CPT-OV Office Visit 11:15:41 CDT CPT-84832 Abx/Therapy Injection 10:51:30 CDT CPT-J3301 Kenalog 40 mg (Triamcinolone Acetonide) 10:25:12 CDT CPT-J1100 Decadron 4mg (Dexamethasone) 10:25:12 CDT CPT-07796 Anoscopy diagnostic 10:36:12 CDT CPT-OV Office Visit 15:34:31 CDT CPT-12781 Abx/Therapy Injection 08:21:15 REGISTERED TRAVEL NURSE CPT-J1885 Toradol 60 mg (Ketorolac) 10:46:35 REGISTERED TRAVEL NURSE CPT-OV Office Visit 19:51:16 REGISTERED TRAVEL NURSE CPT-85642 Spec Collection and Handling Fee 14:34:18 REGISTERED TRAVEL NURSE CPT-PV Prev. Care Visit 14:19:18 REGISTERED TRAVEL NURSE CPT-10986 Postop F/U Visit 14:47:51 REGISTERED TRAVEL NURSE CPT-75301 Postop F/U Visit 15:15:14 REGISTERED TRAVEL NURSE CPT-07139 Postop F/U Visit 14:41:43 CDT CPT-28195 Postop F/U Visit 15:47:46 CDT CPT-OV Office Visit 15:27:23 CDT CPT-OV Office Visit 17:20:34 CDT CPT-25030 Abx/Therapy Injection 15:05:57 CDT CPT-J1100 Decadron 8mg (Dexamethasone) 14:44:57 CDT CPT-J1040 Depo Medrol 80 mg (Methyl Prednisolone Acetate) 14:44: 57 CDT CPT-JTINJ Joint Injection 10:17:37 CDT CPT-59707 Administration 2+ single or combination vaccines inc oral 13:01:46 REGISTERED TRAVEL NURSE CPT-03210 Administration single or combination vaccine inc oral 13 :01:46 REGISTERED TRAVEL NURSE CPT-84457 Pneumovax 13:01:46 REGISTERED TRAVEL NURSE CPT-67941 Influenza split virus > age 3 13:01:46 REGISTERED TRAVEL NURSE CPT-81846 Administration single or combination vaccine inc oral 08 :56:49 CDT CPT-64476 Tdap 08:56:49 CDT
--- OUTSIDE RECORDS SUMMARY | 2017-03-21 22:01 | XMS REPORT | Clinical Summary ---
Author Author Admin, MARGRET Rhoades [facility] Address Unknown Phone Unavailable Allergies, Adverse Reactions, Alerts Allergy Name Reaction Description Start Date Severity Status Provider CHLORHEXIDINE GLUCONATE tongue and gums swollen Critical Active Hoa Otto RMA NORFLEX Rash Critical Active Rodrigo Sarah FILM PRINTER TRAZODONE HCL sees things Critical Active [...] site; multiple sites Bladder Prolapse 596.9 Active aJred Og MD Unspecified disorder of bladder STRESS [...] Myocardial infarction, hx of 412 Active Hoa Otot A Old myocardial infarction Pelvic pain 789.09 [...] PhD ALLERGIC REACTION, ACUTE ICD-995.3 Inactive Alexis rOdaz MD GERD ICD-530.81 Inactive Todd Callaway MD [...] MD PhD Sinusitis, maxillary, acute ICD-461.0 Inactive Yolnade Lindsay MD PhD Sinusitis ICD-461.9 Inactive Yolande [...] then 4 pills daily OMEGA-3 FATTY ACIDS 36708907623 Active Yolande Lindsay MD PhD Active NIACIN 500 MG TABS 1 pill by mouth nightly x 1 week, then 2 pills x 1 week, then 3 pills x 1 week, then 4 pills nightly - take after evening meal, with applesauce or an apple NIACIN 17640121175 Active Yolande Lindsay MD PhD Active ATORVASTATIN CALCIUM 10 MG TABS 1 pill by mouth daily, for cholesterol 09/06 ATORVASTATIN CALCIUM 98049639609 Active Yolande Lindsay MD PhD Active CALCIUM 600+D PLUS MINERALS 600-400 MG-UNIT ORAL CHEW 1 tab by mouth daily CALCIUM CARBONATE-VIT D-MIN 81059660980 No Longer Active Yolande Lindsay MD PhD Active CYCLOBENZAPRINE HCL 10 MG TABS 1 tablet by mouth three times daily as needed for muscle spasm/pain CYCLOBENZAPRINE HCL 37811149798 Active Yolande Lindsay MD PhD Active ONDANSETRON 4 MG TBDP 1 q4h PRN nausea ONDANSETRON 59969194893 Active Yolande Lindsay MD PhD Active ADULT ASPIRIN EC LOW STRENGTH 81 MG TBEC Take 1 tablet by mouth daily 2014 ASPIRIN 36364955780 No Longer Active Yolande Lindsay MD PhD Active ZOFRAN ODT 4 MG TBDP 1 pill dissolved by mouth every 4 hours if needed for nausea ONDANSETRON 56100339197 No Longer Active Yolande Lindsay MD PhD Active CEFTIN 500 MG TAB 1 twice a day CEFUROXIME AXETIL 75974357338 No Longer Active Yolande Lindsay MD PhD Active ALBUTEROL SULFATE 0.083 % NEBU SOLN one vial per nebulizer every 4-6 hours as needed ALBUTEROL SULFATE 75335841580 No Longer Active Alexis Ordaz MD Active DOXYCYCLINE HYCLATE 100 MG CAP 1 cap by mouth twice daily DOXYCYCLINE HYCLATE 67960533493 No Longer Active Yolande Lindsay MD PhD Active CYCLOBENZAPRINE HCL 10 MG TABS 1/2 - 1 tab by mouth three times daily if needed for spasms/pain CYCLOBENZAPRINE HCL 52752181472 No Longer Active Yolande Lindsay MD PhD Active TRILEPTAL 600 MG TABS Take one 1/2 tablet in Am and 1 tablet at night OXCARBAZEPINE 94211573884 Active Yolande Lindsay MD PhD Active AZITHROMYCIN 250 MG TABS 2 pills on day 1, then 1 pill daily x 4 days AZITHROMYCIN 62626651910 No Longer Active Yolande Lindsay MD PhD Active XOPENEX 1.25 MG/3ML NEBU 1 neb every 4 hours if needed for cough/congestion LEVALBUTEROL HCL 75311566188 No Longer Active Yolande Lindsay MD PhD Active DOXYCYCLINE HYCLATE 100 MG TAB 1 tab twice a day for 14 days 2013 DOXYCYCLINE HYCLATE 96118159933 No Longer Active Yolande Lindsay MD PhD Active LEVOTHYROXINE SODIUM 75 MCG TABS Take 1 tab daily LEVOTHYROXINE SODIUM 14397353761 Active Yolande Lindsay MD PhD Active PREVACID 30 MG CPDR Take 1 tablet by mouth daily-PRN LANSOPRAZOLE 41476328833 No Longer Active Yolande Lindsay MD PhD Active PA VITAMIN D-3 2000 UNIT CAPS 1 CAP PO DAILY CHOLECALCIFEROL 79753184088 No Longer Active Yolande Lindsay MD PhD Active CEFDINIR 300 MG CAPS by mouth twice a day CEFDINIR 61822530468 No Longer Active Gab Padron MD Active TOPAMAX 50 MG TABS 1 PO twice daily TOPIRAMATE 94036257293 Active Yolande Lindsay MD PhD Active AZITHROMYCIN 250 MG TABS 2 po qd x 1 day, then 1 po qd x 4 days AZITHROMYCIN 96888952945 No Longer Active Yolande Lindsay MD PhD Active DICLOFENAC SODIUM 75 MG TBEC 1 tablet by q 12 hours PRN headaches DICLOFENAC SODIUM 70047611939 No Longer Active Yolande Lindsay MD PhD Active FLONASE 50 MCG/ACT SUSP 1 spray each nostril am and hs FLUTICASONE PROPIONATE 71924181009 No Longer Active Todd Callaway MD Active ANUSOL-HC 25 MG SUPPOSITORY 1 rectally twice a day as needed for hemorrhoids HYDROCORTISONE JAYDEN (RECTAL) 75398790017 No Longer Active Yolande Lindsay MD PhD Active ANUSOL-HC 25 MG SUPPOSITORY 1 suppository rectally each evening as needed for anal fissure HYDROCORTISONE JAYDEN (RECTAL) 06459247464 No Longer Active LONNIE Iglesias Active VALIUM 5 MG TAB 1 po 30 minutes prior to your MRI DIAZEPAM 43120206893 No Longer Active LONNIE Iglesias Active METHOCARBAMOL 750 MG TABS 1 PO QID PRN METHOCARBAMOL 70370591320 No Longer Active Daphne Wetzel FILM PRINTER Active NITROSTAT 0.4 MG SUBL as directed NITROGLYCERIN 38941860407 No Longer Active Rodrigo Sarah APRN Active ROBAXIN-750 750 MG TABS 2 four times a day for 3 days as needed for muscle spasm, then 1 four times a day as needed METHOCARBAMOL 49387498727 No Longer Active Rodrigo Sarah APRN Active HYDROCODONE-ACETAMINOPHEN 5-325 MG TABS 1 q 4-6 hrs prn HYDROCODONE-ACETAMINOPHEN 20331955512 No Longer Active Rodrigo Sarah APRN Active VERAPAMIL HCL CR 180 MG CR-TABS TAKE 1 TAB DAILY VERAPAMIL HCL 18717978363 No Longer Active Yolande Lindsay MD PhD Active BACTRIM DS 800-160 MG TAB 1 tab by mouth twice daily TRIMETHOPRIM-SULFAMETHOXAZOLE 12204648562 No Longer Active Yolande Lindsay MD PhD Active NEXIUM 40 MG PACK 1 by mouth daily ESOMEPRAZOLE MAGNESIUM 72981508208 No Longer Active Des Hines MD Active EPIPEN 2-CHARLETTE 0.3 MG/0.3ML OMARI as need for allergic reaction EPINEPHRINE 43024692172 Active Yolande Lindsay MD PhD Active LISINOPRIL 10 MG TABS 1 PO Q D FOR BP LISINOPRIL 15032456208 Active Yolande Lindsay MD PhD Active NEXIUM 40 MG CPDR 1 PO Q D DAY ESOMEPRAZOLE MAGNESIUM 03842761086 No Longer Active Sadia Perry RN Active NEXIUM 40 MG PACK 1 by mouth daily NEXIUM 40 MG PACK ESOMEPRAZOLE MAGNESIUM Inactive VERAPAMIL HCL CR 180 MG CR-TABS TAKE 1 TAB DAILY VERAPAMIL HCL CR 180 MG CR-TABS VERAPAMIL HCL Inactive HYDROCODONE-ACETAMINOPHEN 5-325 MG TABS 1 q 4-6 hrs prn HYDROCODONE-ACETAMINOPHEN 5-325 MG TABS 017840 HYDROCODONE-ACETAMINOPHEN Inactive ROBAXIN-750 750 MG TABS 2 four times a day for 3 days as needed for muscle spasm, then 1 four times a day as needed ROBAXIN-750 750 MG TABS 370183 METHOCARBAMOL Inactive NITROSTAT 0.4 MG SUBL as directed NITROSTAT 0.4 MG SUBL NITROGLYCERIN Inactive METHOCARBAMOL 750 MG TABS 1 PO QID PRN METHOCARBAMOL 750 MG TABS 352460 METHOCARBAMOL Inactive VALIUM 5 MG TAB 1 po 30 minutes prior to your MRI VALIUM 5 MG TAB 904061 DIAZEPAM Inactive ANUSOL-HC 25 MG SUPPOSITORY 1 suppository rectally each evening as needed for anal fissure ANUSOL-HC 25 MG SUPPOSITORY 7309093 HYDROCORTISONE JAYDEN (RECTAL) Inactive ANUSOL-HC 25 MG SUPPOSITORY 1 rectally twice a day as needed for hemorrhoids ANUSOL-HC 25 MG SUPPOSITORY 4925893 HYDROCORTISONE JAYDEN (RECTAL) Inactive FLONASE 50 MCG/ACT SUSP 1 spray each nostril am and hs FLONASE 50 MCG/ACT SUSP 677963 FLUTICASONE PROPIONATE Inactive DICLOFENAC SODIUM 75 MG TBEC 1 tablet by q 12 hours PRN headaches DICLOFENAC SODIUM 75 MG TBEC 302789 DICLOFENAC SODIUM Inactive PA VITAMIN D-3 2000 UNIT CAPS 1 CAP PO DAILY PA VITAMIN D-3 2000 UNIT CAPS CHOLECALCIFEROL Inactive PREVACID 30 MG CPDR Take 1 tablet by mouth daily-PRN PREVACID 30 MG CPDR 566780 LANSOPRAZOLE Inactive DOXYCYCLINE HYCLATE 100 MG TAB 1 tab twice a day for 14 days 2013 DOXYCYCLINE HYCLATE 100 MG TAB 468772 DOXYCYCLINE HYCLATE Inactive XOPENEX 1.25 MG/3ML NEBU 1 neb every 4 hours if needed for cough/congestion XOPENEX 1.25 MG/3ML NEBU LEVALBUTEROL HCL Inactive CYCLOBENZAPRINE HCL 10 MG TABS 1/2 - 1 tab by mouth three times daily if needed for spasms/pain CYCLOBENZAPRINE HCL 10 MG TABS 318013 CYCLOBENZAPRINE HCL Inactive ALBUTEROL SULFATE 0.083 % NEBU SOLN one vial per nebulizer every 4-6 hours as needed ALBUTEROL SULFATE 0.083 % NEB SOLN 359885 ALBUTEROL SULFATE Inactive CEFTIN 500 MG TAB 1 twice a day CEFTIN 500 MG TAB 835562 CEFUROXIME AXETIL Inactive ZOFRAN ODT 4 MG TBDP 1 pill dissolved by mouth every 4 hours if needed for nausea ZOFRAN ODT 4 MG TBDP 585137 ONDANSETRON Inactive ADULT ASPIRIN EC LOW STRENGTH 81 MG TBEC Take 1 tablet by mouth daily 2014 ADULT ASPIRIN EC LOW STRENGTH 81 MG TBEC 671128 ASPIRIN Inactive CALCIUM 600+D PLUS MINERALS 600-400 [...] x 4 days AZITHROMYCIN 250 MG TABS 2889400 AZITHROMYCIN Inactive CEFDINIR 300 MG CAPS by mouth twice a day CEFDINIR 300 MG CAPS 935340 CEFDINIR Inactive AZITHROMYCIN 250 MG TABS 2 pills on day 1, then 1 pill daily x 4 days AZITHROMYCIN 250 MG TABS 6890188 AZITHROMYCIN Inactive DOXYCYCLINE HYCLATE 100 MG CAP 1 cap by mouth twice daily DOXYCYCLINE HYCLATE 100 MG CAP 097342 DOXYCYCLINE HYCLATE Inactive Immunizations Vaccine Administration Date Value Standard Description Seasonal influenza vaccine, injectable, containing preservative, for > 3 years old (Afluria, FluLaval, Fluzone, Fluvirin, Fluarix, Agriflu(>=18 yo)) Fluzone (>3 yrs.) [DBQ772] Influenza, seasonal, injectable influenza immunization (Flu Vax) has been administered Influenza - Unspecified Formulation [CVX88] influenza virus vaccine, unspecified formulation pneumococcal immunization administered Pneumovax 23 [CVX33] pneumococcal polysaccharide vaccine, 23 valent Seasonal influenza vaccine, injectable, containing preservative, for > 3 years old (Afluria, FluLaval, Fluzone, Fluvirin, Fluarix, Agriflu(>=18 yo)) Fluzone (>3 yrs.) [OBW655] Influenza, seasonal, injectable dT (Diphtheria and Tetanus) booster given given Td(adult) unspecified formulation Boostrix (Tetanus toxoid, reduced diphtheria toxoid and acellular pertussis vaccine, adsorbed), booster Boostrix [HCH495] tetanus toxoid, reduced diphtheria toxoid, and acellular [...] mg/dL Chart Maintenance: Outside labs entered on [employer] - Hematology leukocyte count, blood 6.1 10*3/mm3 hemoglobin, blood 11.0 g/dL platelet count 175 10*3/mm3 Lab Report: [facility] Advanced Lipid and Inlammation Panel /71331 - Chemistry cholesterol, serum 198 mg/dL 799-127 0272/04/30 HDL cholesterol, serum 65 mg/dL > OR=46 triglyceride, serum, fasting 82 mg/dL LDL cholesterol, serum 117 mg/dL cholesterol/HDL ratio, serum 3.0 calc < OR=5.0 Lab Report: CBC W/DIFF, Basic Metabolic Panel - Chemistry sodium, serum 144 mmol/L 119-777 8510/01/21 potassium, serum 4.2 mmol/L 3.5-5.2 chloride, serum [...] Panel - Chemistry sodium, serum 144 mmol/L 238-611 2872/12/15 potassium, serum 5.4 mmol/L 3.5-5.2 chloride, serum [...] UA - Chemistry sodium, serum 143 mmol/L 119-850 0111/10/24 potassium, serum 3.9 mmol/L 3.5-5.2 chloride, serum [...] 51 mg/dL 30-200 cholesterol, serum 173 mg/dL 431-587 9678/04/28 HDL cholesterol, serum 63 mg/dL 32-96 LDL [...] 0-19 Encounters Code Encounter Date Provider Facility CPT-50429 Level 3 Est. Patient 07:37:45 CDT Yolande Lindsay MD PhD [facility] CPT-96978 Level 3 Est. Patient 17:03:46 CDT Yolande Lindsay MD PhD [facility] CPT-88038 Level 4 Est. Patient 20:02:13 MATERIALS INSPECTOR Yolande Lindsay MD [facility] CPT-96496 Level 3 Est. Patient 16:02:07 MATERIALS INSPECTOR Alexis Ordaz MD [facility] CPT-89818 Level 3 Est. Patient 12:41:24 MATERIALS INSPECTOR Yolande Lindsay MD [facility] CPT-88176 Level 3 Est. Patient 15:41:20 MATERIALS INSPECTOR Yolande Lindsay MD [facility] CPT-38595 Level 3 Est. Patient 13:20:02 MATERIALS INSPECTOR Yolande Lindsay MD [facility] CPT-57191 Level 3 Est. Patient 15:00:38 CDT Jared Og MD [facility]-25892 Level 3 Est. Patient 10:22:32 CDT Yolande Lindsay MD [facility] CPT-52097 Level 3 Est. Patient 17:12:58 CDT Yolande Lindsay MD [facility] CPT-19108 Level 4 Est. Patient 13:30:58 CDT Yolande Lindsay MD [facility] CPT-48660 Level 4 New Patient 09:02:42 CDT Jared Og MD [facility] CPT-18640 Level 3 Est. Patient 08:19:07 CDT Yolande Lindsay MD [facility] CPT-43973 Level 3 Est. Patient 12:00:13 MATERIALS INSPECTOR Gab Padron MD [facility] CPT-22728 Level 3 Est. Patient 16:15:23 MATERIALS INSPECTOR Yolande Lindsay MD [facility] CPT-16797 Level 2 Est. Patient 19:47:15 CDT Yolande Lindsay MD [facility] CPT-04272 Level 3 Est. Patient 21:38:31 CDT Yolande Lindsay MD [facility]-70872 Level 3 Est. Patient 10:25:12 CDT Adiel Harry [facility]-33733 Level 4 Est. Patient 10:51:58 CDT Yolande Lindsay MD [facility]-39265 Level 3 Est. Patient 14:04:55 MATERIALS INSPECTOR Rodrigo Sarah [facility]-88929 Level 3 Est. Patient 10:46:35 MATERIALS INSPECTOR Rodrigo Sarah [facility] CPT-12663 Level 3 Est. Patient 14:24:37 MATERIALS INSPECTOR Yolande Lindsay MD [facility]-32830 Level 3 Est. Patient 17:41:58 MATERIALS INSPECTOR Yolande Lindsay MD [facility]-28211 Level 2 Est. Patient 22:01:41 MATERIALS INSPECTOR Rodrigo Sarah [facility]-80819 Level 2 Est. Patient 22:01:11 MATERIALS INSPECTOR Silvestrellnacho Montemayorl [facility] CPT-94141 Level 3 Est. Patient 10:12:29 MATERIALS INSPECTOR Rodrigo Sarah [facility]-10714 Level 3 Est. Patient 11:05:44 CDT Alexis Ordaz MD [facility]-75890 Level 3 Est. Patient 14:57:20 CDT Yolande Lnidsay MD [facility]-80235 Level 3 Est. Patient 14:40:57 CDT Yolande Lindsay MD [facility]-96891 Level 3 Est. Patient 20:55:40 CDT Yolande Lindsay MD [facility]-31124 Level 3 Est. Patient 12:42:38 MATERIALS INSPECTOR Yolande Lindsay MD [facility]-26106 Level 3 Est. Patient 11:54:49 MATERIALS INSPECTOR Des Hines MD [facility] CPT-01724 Level 3 Est. Patient 17:06:38 CDT Dewayne PERAZA [facility] Procedures Code Procedure Name Date Entry Date Standard Description [id number] Event Monitor - MC Transmission 09:12:32 CDT 08/06 [id number] Event Monitor - MC review and interp 09:12:32 CDT [id number] Event Monitor - MC recording 09:12:32 CDT CPT-01555 EKG Trac and Interp 16:50:22 CDT CPT-J1030 Depo Medrol 40 mg (Methyl Prednisolone Acetate) 17:05: 54 CDT CPT-J1100 Decadron 4mg (Dexamethasone) 17:05:54 CDT CPT-28919 Abx/Therapy Injection 17:05:54 CDT CPT-J1100 Decadron 4mg (Dexamethasone) 16:55:28 CDT CPT-J1030 Depo Medrol 40 mg (Methyl Prednisolone Acetate) 16:55: 28 CDT CPT-88334 Ankle Complete - Min 3V 15:58:50 CDT CPT-22001 Knee 3V 15:58:50 CDT CPT-30473 Hip comp min 2V 15:58:50 CDT CPT-J2270 Morphine Sulfate 10 mg 14:25:44 MATERIALS INSPECTOR CPT-J2550 Phenergan 12.5 mg (Promethazine) 14:25:44 MATERIALS INSPECTOR CPT-67752 Abx/Therapy Injection 14:25:44 MATERIALS INSPECTOR CPT-J2550 Phenergan 12.5 mg (Promethazine) 14:08:03 MATERIALS INSPECTOR CPT-J2270 Morphine Sulfate 10 mg 14:08:03 MATERIALS INSPECTOR CPT-78835 Bladder Scan 15:00:38 CDT CPT-TCMM Transitional Care Mgmt-Moderate 09:52:22 CDT CPT-J1030 Depo Medrol 40 mg (Methyl Prednisolone Acetate) 10:55: 18 CDT CPT-J1100 Decadron 4mg (Dexamethasone) 10:55:18 CDT CPT-55431 Abx/Therapy Injection 10:55:18 CDT CPT-J1030 Depo Medrol 40 mg (Methyl Prednisolone Acetate) 10:22: 32 CDT CPT-J1100 Decadron 4mg (Dexamethasone) 10:22:32 CDT CPT-65854 Postop F/U Visit 14:37:13 CDT CPT-21357 Ankle Complete - Min 3V 17:11:58 CDT CPT-48988 Foot comp min 3V 17:11:58 CDT CPT-13541 Bladder Scan 09:56:58 CDT CPT-04370 Postop F/U Visit 09:56:58 CDT CPT-52100 Cystoscopy 09:02:42 CDT CPT-95123 Bladder Scan 09:02:42 CDT CPT-44958 Abd single AP View 16:00:35 CDT CPT-85996 Administration single or combination vaccine inc oral 10 :15:43 CDT CPT-57155 Influenza split virus > age 3 10:15:43 CDT CPT-34194 Nail Avulsion 09:24:57 CDT CPT-OV Office Visit 11:15:41 CDT CPT-51668 Abx/Therapy Injection 10:51:30 CDT CPT-J3301 Kenalog 40 mg (Triamcinolone Acetonide) 10:25:12 CDT CPT-J1100 Decadron 4mg (Dexamethasone) 10:25:12 CDT CPT-86446 Anoscopy diagnostic 10:36:12 CDT CPT-OV Office Visit 15:34:31 CDT CPT-62667 Abx/Therapy Injection 08:21:15 MATERIALS INSPECTOR CPT-J1885 Toradol 60 mg (Ketorolac) 10:46:35 MATERIALS INSPECTOR CPT-OV Office Visit 19:51:16 MATERIALS INSPECTOR CPT-25324 Spec Collection and Handling Fee 14:34:18 MATERIALS INSPECTOR CPT-PV Prev. Care Visit 14:19:18 MATERIALS INSPECTOR CPT-81955 Postop F/U Visit 14:47:51 MATERIALS INSPECTOR CPT-32459 Postop F/U Visit 15:15:14 MATERIALS INSPECTOR CPT-39520 Postop F/U Visit 14:41:43 CDT CPT-48618 Postop F/U Visit 15:47:46 CDT CPT-OV Office Visit 15:27:23 CDT CPT-OV Office Visit 17:20:34 CDT CPT-85010 Abx/Therapy Injection 15:05:57 CDT CPT-J1100 Decadron 8mg (Dexamethasone) 14:44:57 CDT CPT-J1040 Depo Medrol 80 mg (Methyl Prednisolone Acetate) 14:44: 57 CDT CPT-JTINJ Joint Injection 10:17:37 CDT CPT-51604 Administration 2+ single or combination vaccines inc oral 13:01:46 MATERIALS INSPECTOR CPT-77977 Administration single or combination vaccine inc oral 13 :01:46 MATERIALS INSPECTOR CPT-73803 Pneumovax 13:01:46 MATERIALS INSPECTOR CPT-25081 Influenza split virus > age 3 13:01:46 MATERIALS INSPECTOR CPT-17868 Administration single or combination vaccine inc oral 08 :56:49 CDT CPT-21614 Tdap 08:56:49 CDT
--- OUTSIDE RECORDS SUMMARY | 2017-03-21 22:04 | XMS REPORT | Clinical Summary ---
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 Jillina Frazellilian DATA CENTER OPERATOR 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 Anemia 285.9 Active Gab Padron MD Anemia, unspecified Conjunctivitis 372.30 Active Jillnacho Sarah APRN Conjunctivitis, unspecified Sinusitis 473.9 Active Silvestrellina Frazell DATA CENTER OPERATOR Unspecified sinusitis (chronic) Nonspecific syndrome suggestive of viral illness 079.99 Active Jillina Fracharlottel DATA CENTER OPERATOR Unspecified viral infection Laryngitis 464.00 Active Jillina Frazell DATA CENTER OPERATOR Acute laryngitis without mention of obstruction [...] Flank pain, left 789.09 Active Jillina Frazell DATA CENTER OPERATOR Abdominal pain, other specified site; multiple sites Abdominal pain, generalized 789.07 Active Silvestrellina Farshadzell DATA CENTER OPERATOR Abdominal pain, generalized Back pain, thoracic region, left 724.1 Active Jillina Frazell DATA CENTER OPERATOR Pain in thoracic spine Abdominal pain, left [...] MEDICATIONS ICD-V58.69 Inactive Yolande Lindsay MD PhD CHEST PAIN, UNSPECIFIED ICD-786.50 Inactive Yolande Lindsay MD PhD HEADACHE ICD-784.0 Inactive Yolande Lindsay MD PhD OTHER DISORDER OF COCCYX ICD-724.79 Inactive Yolande Lindsay MD PhD FISSURE, ANAL ICD-565.0 Inactive Yolande Lindsay MD PhD MUSCLE PAIN [...] TBDP 1 po q6hr PRN Nausea ONDANSETRON 77286021108 Active Jillina Frahossein ZAPATAN Active IBUPROFEN 600 MG TAB 1 tablet by mouth every 6 hours for 7 days, then 1 tablet every 6 hours as needed. Take with food IBUPROFEN 56020862883 Active Jillina Frazell DATA CENTER OPERATOR Active BACTRIM DS 800-160 MG TAB 1 tab by mouth twice daily TRIMETHOPRIM-SULFAMETHOXAZOLE 36442936605 No Longer Active Gab Padron MD Active ADVAIR DISKUS 250-50 MCG/DOSE AEPB 1 puff BID FLUTICASONE- SALMETEROL 88200272743 Active Jillina Frazell DATA CENTER OPERATOR Active LEVOTHYROXINE SODIUM 75 MCG TABS Take 1 tab daily LEVOTHYROXINE SODIUM 31711009134 No Longer Active Mariana FLEMING Active SYNTHROID 88 MCG ORAL TABS Take one by mouth daily LEVOTHYROXINE SODIUM 14402489844 Active Mariana FLEMING Active CHERATUSSIN AC 100-10 MG/5ML SYRP 1 tsp by mouth every 4 hours as needed for cough GUAIFENESIN-CODEINE 09410299258 No Longer Active Gab Padron MD Active POLYTRIM 37729-6.1 UNIT/ML-% SOLN 1 gtt to affected eye q3h x 7 days POLYMYXIN B-TRIMETHOPRIM 13934656182 No Longer Active Gab Padron MD Active FLUTICASONE PROPIONATE 50 MCG/ACT SUSP 1 to 2 sprays each nostril daily 04/21 FLUTICASONE PROPIONATE 11490789349 No Longer Active Gab Padron MD Active TRILEPTAL 600 MG TABS Take one 1 tablet in Am and 1 tablet at night OXCARBAZEPINE 83909032598 Active Gab Padron MD Active CEFDINIR 300 MG CAPS 1 po BID x 10 days CEFDINIR 94073452651 No Longer Active Rodrigo Sarah APRN Active CEFTIN 500 MG TAB 1 twice a day CEFUROXIME AXETIL 38261701360 No Longer Active Gab Padron MD Active AZITHROMYCIN 250 MG TABS 2 po qd x 1 day, then 1 po qd x 4 days AZITHROMYCIN 30612464485 No Longer Active Rodrigo Sarah APRN Active CLARITIN 10 MG TAB 1 tablet by mouth daily as needed for allergies LORATADINE 32813760229 Active Silvestrellnacho Sarah APRN Active OXYCODONE HCL 5 MG ORAL CAPS 1 TAB PO Q HS OXYCODONE HCL 94698466173 No Longer Active Rodrigo Sarah APRN Active NIASPAN 500 MG ORAL CR-TABS 1 pill nightly x 1 week, then 2 pills nightly x 1 week, then 3 pills nightly x 1 week, then 4 pills nightly NIACIN (ANTIHYPERLIPIDEMIC) 54875824595 No Longer Active Rodrigo Sarah APRN Active NIACIN 500 MG TABS 1 pill by mouth nightly x 1 week, then 2 pills x 1 week, then 3 pills x 1 week, then 4 pills nightly - take after evening meal, with applesauce or an apple NIACIN 26619018684 No Longer Active Yolande Lindsay MD PhD Active FISH OIL 1000 MG CAPS 3 pills daily OMEGA-3 FATTY ACIDS 37724571838 Active Yolande Lindsay MD PhD Active TRIAMCINOLONE ACETONIDE 0.1 % CREA apply bid sparingly to rash TRIAMCINOLONE ACETONIDE 66648859011 Active Yolande Lindsay MD PhD Active FUROSEMIDE 20 MG TAB 1 tablet by mouth daily FUROSEMIDE 47433284247 Active Tisha Lambert DATA CENTER OPERATOR Active LISINOPRIL 20 MG ORAL TABS 1 tab by mouth daily LISINOPRIL 20949923548 Active Gab Padron MD Active FUROSEMIDE 20 MG TABS 1 pill by mouth daily, for edema FUROSEMIDE 60314533712 No Longer Active Yolande Lindsay MD PhD Active ATORVASTATIN CALCIUM 10 MG TABS 1 pill by mouth daily, for cholesterol 09/06 ATORVASTATIN CALCIUM 60146173595 Active Gab Padron MD Active CALCIUM 600+D PLUS MINERALS 600-400 MG-UNIT ORAL CHEW 1 tab by mouth daily CALCIUM CARBONATE-VIT D-MIN 49609286783 No Longer Active Yolande Lindsay MD PhD Active CYCLOBENZAPRINE HCL 10 MG TABS 1 tablet by mouth three times daily as needed for muscle spasm/pain CYCLOBENZAPRINE HCL 94360660406 Active Yolande Lindsay MD PhD Active ONDANSETRON 4 MG TBDP 1 q4h PRN nausea ONDANSETRON 56486172361 Active Yolande Lindsay MD PhD Active ADULT ASPIRIN EC LOW STRENGTH 81 MG TBEC Take 1 tablet by mouth daily 2014 ASPIRIN 76111213736 No Longer Active Yolande Lindsay MD PhD Active ZOFRAN ODT 4 MG TBDP 1 pill dissolved by mouth every 4 hours if needed for nausea ONDANSETRON 78457000314 No Longer Active Yolande Lindsay MD PhD Active CEFTIN 500 MG TAB 1 twice a day CEFUROXIME AXETIL 25132954586 No Longer Active Yolande Lindsay MD PhD Active ALBUTEROL SULFATE 0.083 % NEBU SOLN one vial per nebulizer every 4-6 hours as needed ALBUTEROL SULFATE 37054354274 No Longer Active Alexis Ordaz MD Active DOXYCYCLINE HYCLATE 100 MG CAP 1 cap by mouth twice daily DOXYCYCLINE HYCLATE 75878308513 No Longer Active Yolande Lindsay MD PhD Active CYCLOBENZAPRINE HCL 10 MG TABS 1/2 - 1 tab by mouth three times daily if needed for spasms/pain CYCLOBENZAPRINE HCL 92146507668 No Longer Active Yolande Lindsay MD PhD Active AZITHROMYCIN 250 MG TABS 2 pills on day 1, then 1 pill daily x 4 days AZITHROMYCIN 35277723849 No Longer Active Yolande Lindsay MD PhD Active XOPENEX 1.25 MG/3ML NEBU 1 neb every 4 hours if needed for cough/congestion LEVALBUTEROL HCL 62602965185 No Longer Active Yolande Lindsay MD PhD Active DOXYCYCLINE HYCLATE 100 MG TAB 1 tab twice a day for 14 days 2013 DOXYCYCLINE HYCLATE 31583207507 No Longer Active Yolande Lindsay MD PhD Active PREVACID 30 MG CPDR Take 1 tablet by mouth daily-PRN LANSOPRAZOLE 60687140928 No Longer Active Yolande Lindsay MD PhD Active PA VITAMIN D-3 2000 UNIT CAPS 1 CAP PO DAILY CHOLECALCIFEROL 03366405446 No Longer Active Yolande Lindsay MD PhD Active CEFDINIR 300 MG CAPS by mouth twice a day CEFDINIR 56108454447 No Longer Active Gab Padron MD Active TOPAMAX 50 MG TABS 1 PO twice daily TOPIRAMATE 49136217295 Active Yolande Lindsay MD PhD Active AZITHROMYCIN 250 MG TABS 2 po qd x 1 day, then 1 po qd x 4 days AZITHROMYCIN 42790407147 No Longer Active Yolande Lindsay MD PhD Active DICLOFENAC SODIUM 75 MG TBEC 1 tablet by q 12 hours PRN headaches DICLOFENAC SODIUM 06990995447 No Longer Active Yolande Lindsay MD PhD Active FLONASE 50 MCG/ACT SUSP 1 spray each nostril am and hs FLUTICASONE PROPIONATE 72979978606 No Longer Active Todd Callaway MD Active ANUSOL-HC 25 MG SUPPOSITORY 1 rectally twice a day as needed for hemorrhoids HYDROCORTISONE JAYDEN (RECTAL) 26099401631 No Longer Active Yolande Lindsay MD PhD Active ANUSOL-HC 25 MG SUPPOSITORY 1 suppository rectally each evening as needed for anal fissure HYDROCORTISONE JAYDEN (RECTAL) 54838624541 No Longer Active LONNIE Iglesias Active VALIUM 5 MG TAB 1 po 30 minutes prior to your MRI DIAZEPAM 23167903041 No Longer Active LONNIE Iglesias Active METHOCARBAMOL 750 MG TABS 1 PO QID PRN METHOCARBAMOL 09666825397 No Longer Active Daphne Wetzel APRN Active NITROSTAT 0.4 MG SUBL as directed NITROGLYCERIN 88029876433 No Longer Active Rodrigo Sarah APRN Active ROBAXIN-750 750 MG TABS 2 four times a day for 3 days as needed for muscle spasm, then 1 four times a day as needed METHOCARBAMOL 21500068922 No Longer Active Rodrigo Sarah APRN Active HYDROCODONE-ACETAMINOPHEN 5-325 MG TABS 1 q 4-6 hrs prn HYDROCODONE-ACETAMINOPHEN 14874230038 No Longer Active Rodrigo Sarah APRN Active VERAPAMIL HCL CR 180 MG CR-TABS TAKE 1 TAB DAILY VERAPAMIL HCL 43902643635 No Longer Active Yolande Lindsay MD PhD Active BACTRIM DS 800-160 MG TAB 1 tab by mouth twice daily TRIMETHOPRIM-SULFAMETHOXAZOLE 48129489190 No Longer Active Yolande Lindsay MD PhD Active NEXIUM 40 MG PACK 1 by mouth daily ESOMEPRAZOLE MAGNESIUM 10032434357 No Longer Active Des Hines MD Active EPIPEN 2-CHARLETTE 0.3 MG/0.3ML OMARI as need for allergic reaction EPINEPHRINE 81248884523 Active Yolande Lindsay MD PhD Active NEXIUM 40 MG CPDR 1 PO Q D DAY ESOMEPRAZOLE MAGNESIUM 17746762609 No Longer Active Sadia Perry RN Active NEXIUM 40 MG PACK 1 by mouth daily NEXIUM 40 MG PACK ESOMEPRAZOLE MAGNESIUM Inactive VERAPAMIL HCL CR 180 MG CR-TABS TAKE 1 TAB DAILY VERAPAMIL HCL CR 180 MG CR-TABS VERAPAMIL HCL Inactive HYDROCODONE-ACETAMINOPHEN 5-325 MG TABS 1 q 4-6 hrs prn HYDROCODONE-ACETAMINOPHEN 5-325 MG TABS 696690 HYDROCODONE-ACETAMINOPHEN Inactive ROBAXIN-750 750 MG TABS 2 four times a day for 3 days as needed for muscle spasm, then 1 four times a day as needed ROBAXIN-750 750 MG TABS 479166 METHOCARBAMOL Inactive NITROSTAT 0.4 MG SUBL as directed NITROSTAT 0.4 MG SUBL NITROGLYCERIN Inactive METHOCARBAMOL 750 MG TABS 1 PO QID PRN METHOCARBAMOL 750 MG TABS 990352 METHOCARBAMOL Inactive VALIUM 5 MG TAB 1 po 30 minutes prior to your MRI VALIUM 5 MG TAB 445709 DIAZEPAM Inactive ANUSOL-HC 25 MG SUPPOSITORY 1 suppository rectally each evening as needed for anal fissure ANUSOL-HC 25 MG SUPPOSITORY 9106476 HYDROCORTISONE JAYDEN (RECTAL) Inactive ANUSOL-HC 25 MG SUPPOSITORY 1 rectally twice a day as needed for hemorrhoids ANUSOL-HC 25 MG SUPPOSITORY 6246348 HYDROCORTISONE JAYDEN (RECTAL) Inactive FLONASE 50 MCG/ACT SUSP 1 spray each nostril am and hs FLONASE 50 MCG/ACT SUSP FLUTICASONE PROPIONATE Inactive DICLOFENAC SODIUM 75 MG TBEC 1 tablet by q 12 hours PRN headaches DICLOFENAC SODIUM 75 MG TBEC 208480 DICLOFENAC SODIUM Inactive PA VITAMIN D-3 2000 UNIT CAPS 1 CAP PO DAILY PA VITAMIN D-3 2000 UNIT CAPS CHOLECALCIFEROL Inactive PREVACID 30 MG CPDR Take 1 tablet by mouth daily-PRN PREVACID 30 MG CPDR 048954 LANSOPRAZOLE Inactive DOXYCYCLINE HYCLATE 100 MG TAB 1 tab twice a day for 14 days 2013 DOXYCYCLINE HYCLATE 100 MG TAB 1613107 DOXYCYCLINE HYCLATE Inactive XOPENEX 1.25 MG/3ML NEBU 1 neb every 4 hours if needed for cough/congestion XOPENEX 1.25 MG/3ML NEBU 261034 LEVALBUTEROL HCL Inactive CYCLOBENZAPRINE HCL 10 MG TABS 1/2 - 1 tab by mouth three times daily if needed for spasms/pain CYCLOBENZAPRINE HCL 10 MG TABS 650819 CYCLOBENZAPRINE HCL Inactive ALBUTEROL SULFATE 0.083 % NEBU SOLN one vial per nebulizer every 4-6 hours as needed ALBUTEROL SULFATE 0.083 % NEBU SOLN 902850 ALBUTEROL SULFATE Inactive CEFTIN 500 MG TAB 1 twice a day CEFTIN 500 MG TAB 342285 CEFUROXIME AXETIL Inactive ZOFRAN ODT 4 MG TBDP 1 pill dissolved by mouth every 4 hours if needed for nausea ZOFRAN ODT 4 MG TBDP 667923 ONDANSETRON Inactive ADULT ASPIRIN EC LOW STRENGTH 81 MG TBEC Take 1 tablet by mouth daily 2014 ADULT ASPIRIN EC LOW STRENGTH 81 MG TBEC 067475 ASPIRIN Inactive CALCIUM 600+D PLUS MINERALS 600-400 [...] or an apple NIACIN 500 MG TABS 748978 NIACIN Inactive NIASPAN 500 MG ORAL CR-TABS 1 pill nightly x 1 week, then 2 pills nightly x 1 week, then 3 pills nightly x 1 week, then 4 pills nightly NIASPAN 500 MG ORAL CR-TABS NIACIN (ANTIHYPERLIPIDEMIC) Inactive OXYCODONE HCL 5 MG ORAL CAPS 1 TAB PO Q HS OXYCODONE HCL 5 MG ORAL CAPS 6233028 OXYCODONE HCL Inactive FLUTICASONE PROPIONATE 50 MCG/ACT SUSP 1 to 2 sprays each nostril daily 04/21 FLUTICASONE PROPIONATE 50 MCG/ACT SUSP 959531 FLUTICASONE PROPIONATE Inactive POLYTRIM 30102-2.1 UNIT/ML-% SOLN 1 gtt to affected eye q3h x 7 days POLYTRIM 94817-4.1 UNIT/ML-% SOLN 195701 POLYMYXIN B- TRIMETHOPRIM Inactive CHERATUSSIN AC 100-10 MG/5ML SYRP 1 tsp by mouth every 4 hours as needed for cough CHERATUSSIN AC 100-10 MG/5ML SYRP 761518 GUAIFENESIN-CODEINE Inactive LEVOTHYROXINE SODIUM 75 MCG TABS Take 1 tab daily LEVOTHYROXINE SODIUM 75 MCG TABS 550491 LEVOTHYROXINE SODIUM Inactive BACTRIM DS 800-160 MG TAB 1 tab by mouth twice daily BACTRIM DS 800-160 MG TAB 378275 TRIMETHOPRIM-SULFAMETHOXAZOLE Inactive AZITHROMYCIN 250 MG TABS 2 po qd x 1 day, then 1 po qd x 4 days AZITHROMYCIN 250 MG TABS 0936660 AZITHROMYCIN Inactive CEFDINIR 300 MG CAPS by mouth twice a day CEFDINIR 300 MG CAPS 20020708 CEFDINIR Inactive AZITHROMYCIN 250 MG TABS 2 pills on day 1, then 1 pill daily x 4 days AZITHROMYCIN 250 MG TABS 4174148 AZITHROMYCIN Inactive DOXYCYCLINE HYCLATE 100 MG CAP 1 cap by mouth twice daily DOXYCYCLINE HYCLATE 100 MG CAP 3518126 DOXYCYCLINE HYCLATE Inactive FUROSEMIDE 20 MG TABS 1 pill by mouth daily, for edema FUROSEMIDE 20 MG TABS 345503 FUROSEMIDE Inactive AZITHROMYCIN 250 MG TABS 2 po qd x 1 day, then 1 po qd x 4 days AZITHROMYCIN 250 MG TABS 0025624 AZITHROMYCIN Inactive CEFTIN 500 MG TAB 1 twice a day CEFTIN 500 MG TAB 353363 CEFUROXIME AXETIL Inactive CEFDINIR 300 MG CAPS 1 po BID x 10 days CEFDINIR 300 MG CAPS 20020708 CEFDINIR Inactive BACTRIM DS 800-160 MG TAB 1 tab by mouth twice daily BACTRIM DS 800-160 MG TAB 421108 TRIMETHOPRIM-SULFAMETHOXAZOLE Inactive Immunizations Vaccine Administration Date Value Standard Description Seasonal influenza vaccine, injectable, containing preservative, for > 3 years old (Afluria, FluLaval, Fluzone, Fluvirin, Fluarix, Agriflu(>=18 yo)) Fluzone (>3 yrs.) [[id number]] Influenza, seasonal, injectable influenza immunization (Flu Vax) has been administered Influenza - Unspecified Formulation [CVX88] influenza virus vaccine, unspecified formulation pneumococcal immunization administered Pneumovax 23 [CVX33] pneumococcal polysaccharide vaccine, 23 valent Seasonal influenza vaccine, injectable, containing preservative, for > 3 years old (Afluria, FluLaval, Fluzone, Fluvirin, Fluarix, Agriflu(>=18 yo)) Fluzone (>3 yrs.) [NNU062] Influenza, seasonal, injectable dT (Diphtheria and Tetanus) booster given given Td(adult) unspecified formulation Boostrix (Tetanus toxoid, reduced diphtheria toxoid and acellular pertussis vaccine, adsorbed), booster Boostrix [HIH243] tetanus toxoid, reduced diphtheria toxoid, and acellular [...] Panel - Chemistry sodium, serum 142 mmol/L 851-611 1206/06/30 urea nitrogen, blood 18 mg/dL 7-18 creatinine, serum 1.31 mg/dL 0.55-1.30 potassium, serum 4.4 mmol/L 3.5-5.2 chloride, serum 108 mmol/L 98-107 carbon dioxide, venous blood 25.1 mmol/L 21.0-32.0 blood glucose 82 mg/dL 65-110 calcium, serum 9.1 mg/dL 8.5-10.1 Lab Report: [facility] Advanced Lipid and Inlammation Panel /13318 - Chemistry cholesterol, serum 148 mg/dL 946-343 1151/09/02 HDL cholesterol, serum 55 mg/dL > OR=46 [...] % 11.6-14.8 platelet count 179 10^3/MM^3 10*3/mm3 530-657 6469/03/24 leukocyte count, blood 5.3 10^3/MM^3 10*3/mm3 4.6-10.2 [...] (L) - Chemistry sodium, serum 145 mmol/L 128-515 4976/09/02 potassium, serum 4.6 mmol/L 3.5-5.2 chloride, serum [...] blood 4.7 10^3/MM^3 10*3/mm3 4.6-10.2 mean corpuscular hemoglobin, RBC 30.3 pg 27.0-31.2 mean corpuscular hemoglobin concentration, RBC 33.1 G/DL % 31.8- 35.4 red blood cell distribution width 15.4 % 11.6-14.8 platelet count 166 10^3/MM^3 10*3/mm3 142-424 Lab Report: Comp. Metabolic Panel, Erythrocyte Sed Rate - Chemistry sodium, serum 139 mmol/L 390-791 7524/03/24 creatinine, serum 1.35 mg/dL 0.55-1.30 alanine aminotransferase [...] ... - Chemistry sodium, serum 143 mmol/L 312-635 7875/05/02 creatinine, serum 1.21 mg/dL 0.55-1.30 alanine aminotransferase [...] mg/dL 65-110 urea nitrogen, blood 20 mg/dL - Lab Report: Comp. Metabolic Panel, UADIP W/MICRO, [...] dipstick Negative Negative sodium, serum 142 mmol/L 113-320 8819/07/18 carbon dioxide, venous blood 27.8 mmol/L 21.0-32.0 [...] mg/dL Encounters Code Encounter Date Provider Facility CPT-93962 Level 3 Est. Patient 15:27:02 CDT Jared Og MD [facility] [place] CPT-63443 Level 4 Est. Patient 09:25:27 CDT Gab Padron MD [facility] CPT-06164 Level 3 Est. Patient 10:29:41 CDT Rodrigo Sarah APRN [facility] CPT-07930 Level 4 Est. Patient 17:51:05 CDT Gab Padron MD [facility] CPT-55776 Level 3 Est. Patient 14:18:08 CDT Gab Padron MD [facility] CPT-73654 Level 4 Est. Patient 10:18:54 CDT Gab Padron MD [facility] CPT-33361 Level 3 Est. Patient 11:30:07 CDT Rodrigo Sarah APRN [facility] CPT-10738 Level 4 Est. Patient 21:02:30 STATEMENT SERVICES REPRESENTATIVE Gab Padron MD [facility]-17925 Level 3 Est. Patient 11:02:19 STATEMENT SERVICES REPRESENTATIVE Gab Padron MD [facility] CPT-86954 Level 4 Est. Patient 22:24:31 STATEMENT SERVICES REPRESENTATIVE Gab Padron MD [facility]-45732 Level 3 Est. Patient 18:33:46 STATEMENT SERVICES REPRESENTATIVE Gab Padron MD [facility]-01036 Level 3 Est. Patient 16:19:11 CDT Yolande Lindsay MD [facility]-04528 Level 3 Est. Patient 18:59:14 CDT Yolande Lindsay MD [facility]-19852 Level 4 Est. Patient 21:29:26 CDT Yolande Lindsay MD [facility]-22529 Level 3 Est. Patient 07:37:45 CDT Yolande Lindsay MD [facility]-74546 Level 3 Est. Patient 17:03:46 CDT Yolande Lindsay MD [facility]-25010 Level 4 Est. Patient 20:02:13 STATEMENT SERVICES REPRESENTATIVE Yolande Lindsay MD PhD [facility] CPT-76012 Level 3 Est. Patient 16:02:07 STATEMENT SERVICES REPRESENTATIVE Alexis Ordaz MD [facility] CPT-61857 Level 3 Est. Patient 12:41:24 STATEMENT SERVICES REPRESENTATIVE Yolande Lindsay MD PhD [facility]-51323 Level 3 Est. Patient 15:41:20 STATEMENT SERVICES REPRESENTATIVE Yolande Lindsay MD [facility] CPT-46208 Level 3 Est. Patient 13:20:02 STATEMENT SERVICES REPRESENTATIVE Yolande Lindsay MD [facility]-09832 Level 3 Est. Patient 15:00:38 CDT Jared Og MD [facility]-38605 Level 3 Est. Patient 10:22:32 CDT Yolande Lindsay MD [facility]-71953 Level 3 Est. Patient 17:12:58 CDT Yolande Lindsay MD [facility]-89143 Level 4 Est. Patient 13:30:58 CDT Yolande Lindsay MD [facility]-23790 Level 4 New Patient 09:02:42 CDT Jared Og MD [facility]-72295 Level 3 Est. Patient 08:19:07 CDT Yolande Lindsay MD [facility]-33951 Level 3 Est. Patient 12:00:13 STATEMENT SERVICES REPRESENTATIVE Gab Padron MD [facility]-59395 Level 3 Est. Patient 16:15:23 STATEMENT SERVICES REPRESENTATIVE Yolande Lindsay MD [facility] CPT-17596 Level 2 Est. Patient 19:47:15 CDT Yolande Lindsay MD [facility]-19073 Level 3 Est. Patient 21:38:31 CDT Yolande Lindsay MD [facility]-96196 Level 3 Est. Patient 10:25:12 CDT Adiel PERAZA [facility]-55604 Level 4 Est. Patient 10:51:58 CDT Yolande Lindsay MD [facility]-15944 Level 3 Est. Patient 14:04:55 STATEMENT SERVICES REPRESENTATIVE Rodrigo Sarah [facility]-51740 Level 3 Est. Patient 10:46:35 STATEMENT SERVICES REPRESENTATIVE Rodrigo Sarah [facility]-04013 Level 3 Est. Patient 14:24:37 STATEMENT SERVICES REPRESENTATIVE Yolande Lindsay MD [facility] CPT-56206 Level 3 Est. Patient 17:41:58 STATEMENT SERVICES REPRESENTATIVE Yolande Lindsay MD [facility] CPT-19158 Level 2 Est. Patient 22:01:41 STATEMENT SERVICES REPRESENTATIVE Rodrigo Sarah [facility] CPT-10107 Level 2 Est. Patient 22:01:11 STATEMENT SERVICES REPRESENTATIVE Rodrigo Sarah [facility] CPT-35468 Level 3 Est. Patient 10:12:29 STATEMENT SERVICES REPRESENTATIVE Rodrigo Sarah [facility] CPT-07440 Level 3 Est. Patient 11:05:44 CDT Alexis Ordaz MD [facility] CPT-17351 Level 3 Est. Patient 14:57:20 CDT Yolande Lindsay MD [facility] CPT-98368 Level 3 Est. Patient 14:40:57 CDT Yolande Lindsay MD [facility] CPT-53869 Level 3 Est. Patient 20:55:40 CDT Yolande Lindsay MD [facility] CPT-30762 Level 3 Est. Patient 12:42:38 STATEMENT SERVICES REPRESENTATIVE Yolande Lindsay MD [facility] CPT-98064 Level 3 Est. Patient 11:54:49 STATEMENT SERVICES REPRESENTATIVE Des Hines MD [facility] CPT-17814 Level 3 Est. Patient 17:06:38 CDT Dewayne PERAZA [facility] Procedures Code Procedure Name Date Entry Date Standard Description CPT-13970 T spine AP/ Lat - XRAY USE ONLY 09:34:21 CDT CPT-17267 Chest 2V Frontal and Lat - XRAY USE ONLY 10:48:51 CDT CPT-62233 LS spine comp w obliq 13:28:00 STATEMENT SERVICES REPRESENTATIVE CPT-J1040 Depo Medrol 80 mg (Methyl Prednisolone Acetate) 10:51: 28 STATEMENT SERVICES REPRESENTATIVE CPT-J1100 Decadron 8mg (Dexamethasone) 10:51:28 STATEMENT SERVICES REPRESENTATIVE CPT-69175 Abx/Therapy Injection 10:51:28 STATEMENT SERVICES REPRESENTATIVE CPT-J1100 Decadron 8mg (Dexamethasone) 21:02:30 STATEMENT SERVICES REPRESENTATIVE CPT-J1040 Depo Medrol 80 mg (Methyl Prednisolone Acetate) 21:02: 30 STATEMENT SERVICES REPRESENTATIVE [id number] Event Monitor - MC Transmission 09:12:32 CDT 08/06 [id number] Event Monitor - MC review and interp 09:12:32 CDT [id number] Event Monitor - MC recording 09:12:32 CDT CPT-08703 EKG Trac and Interp 16:50:22 CDT CPT-J1030 Depo Medrol 40 mg (Methyl Prednisolone Acetate) 17:05: 54 CDT CPT-J1100 Decadron 4mg (Dexamethasone) 17:05:54 CDT CPT-67773 Abx/Therapy Injection 17:05:54 CDT CPT-J1100 Decadron 4mg (Dexamethasone) 16:55:28 CDT CPT-J1030 Depo Medrol 40 mg (Methyl Prednisolone Acetate) 16:55: 28 CDT CPT-37406 Ankle Complete - Min 3V 15:58:50 CDT CPT-50178 Knee 3V 15:58:50 CDT CPT-26824 Hip comp min 2V 15:58:50 CDT CPT-J2270 Morphine Sulfate 10 mg 14:25:44 STATEMENT SERVICES REPRESENTATIVE CPT-J2550 Phenergan 12.5 mg (Promethazine) 14:25:44 STATEMENT SERVICES REPRESENTATIVE CPT-51114 Abx/Therapy Injection 14:25:44 STATEMENT SERVICES REPRESENTATIVE CPT-J2550 Phenergan 12.5 mg (Promethazine) 14:08:03 STATEMENT SERVICES REPRESENTATIVE CPT-J2270 Morphine Sulfate 10 mg 14:08:03 STATEMENT SERVICES REPRESENTATIVE CPT-04438 Bladder Scan 15:00:38 CDT CPT-TCMM Transitional Care Mgmt-Moderate 09:52:22 CDT CPT-J1030 Depo Medrol 40 mg (Methyl Prednisolone Acetate) 10:55: 18 CDT CPT-J1100 Decadron 4mg (Dexamethasone) 10:55:18 CDT CPT-93749 Abx/Therapy Injection 10:55:18 CDT CPT-J1030 Depo Medrol 40 mg (Methyl Prednisolone Acetate) 10:22: 32 CDT CPT-J1100 Decadron 4mg (Dexamethasone) 10:22:32 CDT CPT-24524 Postop F/U Visit 14:37:13 CDT CPT-62743 Ankle Complete - Min 3V 17:11:58 CDT CPT-48642 Foot comp min 3V 17:11:58 CDT CPT-74468 Bladder Scan 09:56:58 CDT CPT-15411 Postop F/U Visit 09:56:58 CDT CPT-08961 Cystoscopy 09:02:42 CDT CPT-22123 Bladder Scan 09:02:42 CDT CPT-01830 Abd single AP View 16:00:35 CDT CPT-81696 Administration single or combination vaccine inc oral 10 :15:43 CDT CPT-93815 Influenza split virus > age 3 10:15:43 CDT CPT-05229 Nail Avulsion 09:24:57 CDT CPT-OV Office Visit 11:15:41 CDT CPT-67451 Abx/Therapy Injection 10:51:30 CDT CPT-J3301 Kenalog 40 mg (Triamcinolone Acetonide) 10:25:12 CDT CPT-J1100 Decadron 4mg (Dexamethasone) 10:25:12 CDT CPT-46060 Anoscopy diagnostic 10:36:12 CDT CPT-OV Office Visit 15:34:31 CDT CPT-77395 Abx/Therapy Injection 08:21:15 STATEMENT SERVICES REPRESENTATIVE CPT-J1885 Toradol 60 mg (Ketorolac) 10:46:35 STATEMENT SERVICES REPRESENTATIVE CPT-OV Office Visit 19:51:16 STATEMENT SERVICES REPRESENTATIVE CPT-69633 Spec Collection and Handling Fee 14:34:18 STATEMENT SERVICES REPRESENTATIVE CPT-PV Prev. Care Visit 14:19:18 STATEMENT SERVICES REPRESENTATIVE CPT-61125 Postop F/U Visit 14:47:51 STATEMENT SERVICES REPRESENTATIVE CPT-62872 Postop F/U Visit 15:15:14 STATEMENT SERVICES REPRESENTATIVE CPT-45391 Postop F/U Visit 14:41:43 CDT CPT-28007 Postop F/U Visit 15:47:46 CDT CPT-OV Office Visit 15:27:23 CDT CPT-OV Office Visit 17:20:34 CDT CPT-09266 Abx/Therapy Injection 15:05:57 CDT CPT-J1100 Decadron 8mg (Dexamethasone) 14:44:57 CDT CPT-J1040 Depo Medrol 80 mg (Methyl Prednisolone Acetate) 14:44: 57 CDT CPT-JTINJ Joint Injection 10:17:37 CDT CPT-76863 Administration 2+ single or combination vaccines inc oral 13:01:46 STATEMENT SERVICES REPRESENTATIVE CPT-18344 Administration single or combination vaccine inc oral 13 :01:46 STATEMENT SERVICES REPRESENTATIVE CPT-23894 Pneumovax 13:01:46 STATEMENT SERVICES REPRESENTATIVE CPT-29711 Influenza split virus > age 3 13:01:46 STATEMENT SERVICES REPRESENTATIVE CPT-22735 Administration single or combination vaccine inc oral 08 :56:49 CDT CPT-21356 Tdap 08:56:49 CDT
--- OUTSIDE RECORDS SUMMARY | 2017-03-21 22:07 | XMS REPORT | Clinical Summary ---
Author Author Admin, MARGRET Organization [employer] Address Unknown Phone Unavailable Allergies, Adverse Reactions, Alerts Allergy Name Reaction Description Start Date Severity Status Provider VALENTIN Critical Active Rodrigo Montemayorl POT OPERATOR CHLORHEXIDINE GLUCONATE tongue and gums swollen Critical Active Hoa Kabaford RMA NORFLEX Rash Critical Active Rowenaina Farshadzell POT OPERATOR TRAZODONE HCL sees things Critical Active [...] Hematuria, unspecified Health maintenance exam V70.0 Active Yolaned Lindsay MD PhD Routine general medical examination [...] site; multiple sites Sinusitis 461.9 Resolved Yolande Lindsya MD PhD Acute sinusitis, unspecified Abdominal pain, [...] hx of 412 Active Hoa Otto [facility] Old myocardial infarction Pelvic pain 789.09 Active Yolande Lindsay MD PhD Abdominal pain, other specified site; multiple sites Edema 782.3 Active Yolande Lindsay MD PhD Edema Rash 782.1 Active Yolande Lindsay MD PhD Rash and other nonspecific skin eruption Back pain, lumbar 724.2 Active Gab Padron MD Lumbago Cough 786.2 Active Jillina Tyrel POT OPERATOR Cough 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 Jillina Frazellilian POT OPERATOR 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 Anemia 285.9 Active Gab Padron MD Anemia, unspecified Conjunctivitis 372.30 Active Jillina Tyrel POT OPERATOR Conjunctivitis, unspecified Sinusitis 473.9 Active Jillina Frazell POT OPERATOR Unspecified sinusitis (chronic) Nonspecific syndrome suggestive of viral illness 079.99 Active Rodrigo Sarah APRN Unspecified viral infection Laryngitis 464.00 Active Jillina Tyrel POT OPERATOR Acute laryngitis without mention of obstruction [...] 1/2 tab daily for 2 days PREDNISONE 82923963130 No Longer Active Gab Padron MD Active ZOFRAN ODT 4 MG TBDP 1 po q6hr PRN Nausea ONDANSETRON 40267530524 Active Jillina Frazell POT OPERATOR Active IBUPROFEN 600 MG TAB 1 tablet by mouth every 6 hours for 7 days, then 1 tablet every 6 hours as needed. Take with food IBUPROFEN 60724543480 Active Jillina Frazell POT OPERATOR Active BACTRIM DS 800-160 MG TAB 1 tab by mouth twice daily TRIMETHOPRIM-SULFAMETHOXAZOLE 14300216619 No Longer Active Gab Padron MD Active ADVAIR DISKUS 250-50 MCG/DOSE AEPB 1 puff BID FLUTICASONE- SALMETEROL 98103246741 Active Rodrigo Sarah APRN Active LEVOTHYROXINE SODIUM 75 MCG TABS Take 1 tab daily LEVOTHYROXINE SODIUM 07861855079 No Longer Active Mariana Lermagilma HICKEYA Active SYNTHROID 88 MCG ORAL TABS Take one by mouth daily LEVOTHYROXINE SODIUM 36719733122 Active Gab Padron MD Active CHERATUSSIN AC 100-10 MG/5ML SYRP 1 tsp by mouth every 4 hours as needed for cough GUAIFENESIN-CODEINE 26903589067 No Longer Active aGb Padron MD Active POLYTRIM 03432-4.1 UNIT/ML-% SOLN 1 gtt to affected eye q3h x 7 days POLYMYXIN B-TRIMETHOPRIM 60042978354 No Longer Active Gab Padron MD Active FLUTICASONE PROPIONATE 50 MCG/ACT SUSP 1 to 2 sprays each nostril daily 04/21 FLUTICASONE PROPIONATE 71854695846 No Longer Active Gab Padron MD Active TRILEPTAL 600 MG TABS Take one 1 tablet in Am and 1 tablet at night OXCARBAZEPINE 34924629980 Active Gab Padron MD Active CEFDINIR 300 MG CAPS 1 po BID x 10 days CEFDINIR 84821273125 No Longer Active Rodrigo Sarah APRN Active CEFTIN 500 MG TAB 1 twice a day CEFUROXIME AXETIL 94111035792 No Longer Active Gab Padron MD Active AZITHROMYCIN 250 MG TABS 2 po qd x 1 day, then 1 po qd x 4 days AZITHROMYCIN 45807546310 No Longer Active Rodrigo Sarah APRN Active CLARITIN 10 MG TAB 1 tablet by mouth daily as needed for allergies LORATADINE 36703352658 Active Rodrigo Sarah APRN Active OXYCODONE HCL 5 MG ORAL CAPS 1 TAB PO Q HS OXYCODONE HCL 23401826476 No Longer Active Rodrigo Sarah APRN Active NIASPAN 500 MG ORAL CR-TABS 1 pill nightly x 1 week, then 2 pills nightly x 1 week, then 3 pills nightly x 1 week, then 4 pills nightly NIACIN (ANTIHYPERLIPIDEMIC) 35540182939 No Longer Active Rodrigo Sarah APRN Active NIACIN 500 MG TABS 1 pill by mouth nightly x 1 week, then 2 pills x 1 week, then 3 pills x 1 week, then 4 pills nightly - take after evening meal, with applesauce or an apple NIACIN 90238204384 No Longer Active Yolande Lindsay MD PhD Active FISH OIL 1000 MG CAPS 3 pills daily OMEGA-3 FATTY ACIDS 75566364416 Active Yolande Lindsay MD PhD Active TRIAMCINOLONE ACETONIDE 0.1 % CREA apply bid sparingly to rash TRIAMCINOLONE ACETONIDE 82013560316 Active Yolande Lindsay MD PhD Active FUROSEMIDE 20 MG TAB 1 tablet by mouth daily FUROSEMIDE 21125463103 Active Gab Padron MD Active LISINOPRIL 20 MG ORAL TABS 1 tab by mouth daily LISINOPRIL 25169324602 Active Gab Padron MD Active FUROSEMIDE 20 MG TABS 1 pill by mouth daily, for edema FUROSEMIDE 61872751324 No Longer Active Yolande Lindsay MD PhD Active ATORVASTATIN CALCIUM 10 MG TABS 1 pill by mouth daily, for cholesterol 09/06 ATORVASTATIN CALCIUM 97963273064 Active Gab Padron MD Active CALCIUM 600+D PLUS MINERALS 600-400 MG-UNIT ORAL CHEW 1 tab by mouth daily CALCIUM CARBONATE-VIT D-MIN 13041044655 No Longer Active Yolande Lindsay MD PhD Active CYCLOBENZAPRINE HCL 10 MG TABS 1 tablet by mouth three times daily as needed for muscle spasm/pain CYCLOBENZAPRINE HCL 00630327757 Active Yolande Lindsay MD PhD Active ONDANSETRON 4 MG TBDP 1 q4h PRN nausea ONDANSETRON 65962769726 Active Yolande Lindsay MD PhD Active ADULT ASPIRIN EC LOW STRENGTH 81 MG TBEC Take 1 tablet by mouth daily 2014 ASPIRIN 68352255482 No Longer Active Yolande Lindsay MD PhD Active ZOFRAN ODT 4 MG TBDP 1 pill dissolved by mouth every 4 hours if needed for nausea ONDANSETRON 07628508190 No Longer Active Yolande Lindsay MD PhD Active CEFTIN 500 MG TAB 1 twice a day CEFUROXIME AXETIL 95183925095 No Longer Active Yolande Lindsay MD PhD Active ALBUTEROL SULFATE 0.083 % NEBU SOLN one vial per nebulizer every 4-6 hours as needed ALBUTEROL SULFATE 46203975087 No Longer Active Alexis Ordaz MD Active DOXYCYCLINE HYCLATE 100 MG CAP 1 cap by mouth twice daily DOXYCYCLINE HYCLATE 15141161265 No Longer Active Yolande Lindsay MD PhD Active CYCLOBENZAPRINE HCL 10 MG TABS 1/2 - 1 tab by mouth three times daily if needed for spasms/pain CYCLOBENZAPRINE HCL 49103755273 No Longer Active Yolande Lindsay MD PhD Active AZITHROMYCIN 250 MG TABS 2 pills on day 1, then 1 pill daily x 4 days AZITHROMYCIN 85787320648 No Longer Active Yolande Lindsay MD PhD Active XOPENEX 1.25 MG/3ML NEBU 1 neb every 4 hours if needed for cough/congestion LEVALBUTEROL HCL 62247781040 No Longer Active Yolande Lindsay MD PhD Active DOXYCYCLINE HYCLATE 100 MG TAB 1 tab twice a day for 14 days 2013 DOXYCYCLINE HYCLATE 36102737972 No Longer Active Yolande Lindsay MD PhD Active PREVACID 30 MG CPDR Take 1 tablet by mouth daily-PRN LANSOPRAZOLE 08925856610 No Longer Active Yolande Lindsay MD PhD Active PA VITAMIN D-3 2000 UNIT CAPS 1 CAP PO DAILY CHOLECALCIFEROL 74124841728 No Longer Active Yolande Lindsay MD PhD Active CEFDINIR 300 MG CAPS by mouth twice a day CEFDINIR 81265887390 No Longer Active Gab Padron MD Active TOPAMAX 50 MG TABS 1 PO twice daily TOPIRAMATE 36095929440 Active Yolande Lindsay MD PhD Active AZITHROMYCIN 250 MG TABS 2 po qd x 1 day, then 1 po qd x 4 days AZITHROMYCIN 61746194315 No Longer Active Yolande Lindsay MD PhD Active DICLOFENAC SODIUM 75 MG TBEC 1 tablet by q 12 hours PRN headaches DICLOFENAC SODIUM 05298458251 No Longer Active Yolande Lindsay MD PhD Active FLONASE 50 MCG/ACT SUSP 1 spray each nostril am and hs FLUTICASONE PROPIONATE 96638768249 No Longer Active Todd Callaway MD Active ANUSOL-HC 25 MG SUPPOSITORY 1 rectally twice a day as needed for hemorrhoids HYDROCORTISONE JAYDEN (RECTAL) 77798239517 No Longer Active Yolande Lindsay MD PhD Active ANUSOL-HC 25 MG SUPPOSITORY 1 suppository rectally each evening as needed for anal fissure HYDROCORTISONE JAYDEN (RECTAL) 20363102763 No Longer Active LONNIE Iglesias Active VALIUM 5 MG TAB 1 po 30 minutes prior to your MRI DIAZEPAM 70970260097 No Longer Active LONNIE Iglesias Active METHOCARBAMOL 750 MG TABS 1 PO QID PRN METHOCARBAMOL 83398066376 No Longer Active Daphne Wetzel APRN Active NITROSTAT 0.4 MG SUBL as directed NITROGLYCERIN 15475924562 No Longer Active Jillina Frahossein ZAPATAN Active ROBAXIN-750 750 MG TABS 2 four times a day for 3 days as needed for muscle spasm, then 1 four times a day as needed METHOCARBAMOL 71944088099 No Longer Active Silvestrellina Tyrel ZAPATAN Active HYDROCODONE-ACETAMINOPHEN 5-325 MG TABS 1 q 4-6 hrs prn HYDROCODONE-ACETAMINOPHEN 56339098267 No Longer Active Silvestrellnacho Sarah APRN Active VERAPAMIL HCL CR 180 MG CR-TABS TAKE 1 TAB DAILY VERAPAMIL HCL 00179569792 No Longer Active Yolande Lindsay MD PhD Active BACTRIM DS 800-160 MG TAB 1 tab by mouth twice daily TRIMETHOPRIM-SULFAMETHOXAZOLE 98608998545 No Longer Active Yolande Lindsay MD PhD Active NEXIUM 40 MG PACK 1 by mouth daily ESOMEPRAZOLE MAGNESIUM 38372701686 No Longer Active Des Hnies MD Active EPIPEN 2-CHARLETTE 0.3 MG/0.3ML OMARI as need for allergic reaction EPINEPHRINE 87303673242 Active Yolande Lindsay MD PhD Active NEXIUM 40 MG CPDR 1 PO Q D DAY ESOMEPRAZOLE MAGNESIUM 16250370699 No Longer Active Sadia Perry RN Active NEXIUM 40 MG PACK 1 by mouth daily NEXIUM 40 MG PACK ESOMEPRAZOLE MAGNESIUM Inactive VERAPAMIL HCL CR 180 MG CR-TABS TAKE 1 TAB DAILY VERAPAMIL HCL CR 180 MG CR-TABS VERAPAMIL HCL Inactive HYDROCODONE-ACETAMINOPHEN 5-325 MG TABS 1 q 4-6 hrs prn HYDROCODONE-ACETAMINOPHEN 5-325 MG TABS 410936 HYDROCODONE-ACETAMINOPHEN Inactive ROBAXIN-750 750 MG TABS 2 four times a day for 3 days as needed for muscle spasm, then 1 four times a day as needed ROBAXIN-750 750 MG TABS 676509 METHOCARBAMOL Inactive NITROSTAT 0.4 MG SUBL as directed NITROSTAT 0.4 MG SUBL 626819 NITROGLYCERIN Inactive METHOCARBAMOL 750 MG TABS 1 PO QID PRN METHOCARBAMOL 750 MG TABS 844620 METHOCARBAMOL Inactive VALIUM 5 MG TAB 1 po 30 minutes prior to your MRI VALIUM 5 MG TAB 633684 DIAZEPAM Inactive ANUSOL-HC 25 MG SUPPOSITORY 1 suppository rectally each evening as needed for anal fissure ANUSOL-HC 25 MG SUPPOSITORY 5004744 HYDROCORTISONE JAYDEN (RECTAL) Inactive ANUSOL-HC 25 MG SUPPOSITORY 1 rectally twice a day as needed for hemorrhoids ANUSOL-HC 25 MG SUPPOSITORY 6041593 HYDROCORTISONE JAYDEN (RECTAL) Inactive FLONASE 50 MCG/ACT SUSP 1 spray each nostril am and hs FLONASE 50 MCG/ACT SUSP FLUTICASONE PROPIONATE Inactive DICLOFENAC SODIUM 75 MG TBEC 1 tablet by q 12 hours PRN headaches DICLOFENAC SODIUM 75 MG TBEC 373770 DICLOFENAC SODIUM Inactive PA VITAMIN D-3 2000 UNIT CAPS 1 CAP PO DAILY PA VITAMIN D-3 2000 UNIT CAPS CHOLECALCIFEROL Inactive PREVACID 30 MG CPDR Take 1 tablet by mouth daily-PRN PREVACID 30 MG CPDR 491561 LANSOPRAZOLE Inactive DOXYCYCLINE HYCLATE 100 MG TAB 1 tab twice a day for 14 days 2013 DOXYCYCLINE HYCLATE 100 MG TAB 5717553 DOXYCYCLINE HYCLATE Inactive XOPENEX 1.25 MG/3ML NEBU 1 neb every 4 hours if needed for cough/congestion XOPENEX 1.25 MG/3ML NEBU 432037 LEVALBUTEROL HCL Inactive CYCLOBENZAPRINE HCL 10 MG TABS 1/2 - 1 tab by mouth three times daily if needed for spasms/pain CYCLOBENZAPRINE HCL 10 MG TABS 308982 CYCLOBENZAPRINE HCL Inactive ALBUTEROL SULFATE 0.083 % NEBU SOLN one vial per nebulizer every 4-6 hours as needed ALBUTEROL SULFATE 0.083 % NEBU SOLN 055680 ALBUTEROL SULFATE Inactive CEFTIN 500 MG TAB 1 twice a day CEFTIN 500 MG TAB 688884 CEFUROXIME AXETIL Inactive ZOFRAN ODT 4 MG TBDP 1 pill dissolved by mouth every 4 hours if needed for nausea ZOFRAN ODT 4 MG TBDP 541491 ONDANSETRON Inactive ADULT ASPIRIN EC LOW STRENGTH 81 MG TBEC Take 1 tablet by mouth daily 2014 ADULT ASPIRIN EC LOW STRENGTH 81 MG TBEC 831441 ASPIRIN Inactive CALCIUM 600+D PLUS MINERALS 600-400 [...] or an apple NIACIN 500 MG TABS 171087 NIACIN Inactive NIASPAN 500 MG ORAL CR-TABS 1 pill nightly x 1 week, then 2 pills nightly x 1 week, then 3 pills nightly x 1 week, then 4 pills nightly NIASPAN 500 MG ORAL CR-TABS NIACIN (ANTIHYPERLIPIDEMIC) Inactive OXYCODONE HCL 5 MG ORAL CAPS 1 TAB PO Q HS OXYCODONE HCL 5 MG ORAL CAPS 9707894 OXYCODONE HCL Inactive FLUTICASONE PROPIONATE 50 MCG/ACT SUSP 1 to 2 sprays each nostril daily 04/21 FLUTICASONE PROPIONATE 50 MCG/ACT SUSP 6111270 FLUTICASONE PROPIONATE Inactive POLYTRIM 98066-5.1 UNIT/ML-% SOLN 1 gtt to affected eye q3h x 7 days POLYTRIM 74091-3.1 UNIT/ML-% SOLN 150991 POLYMYXIN B- TRIMETHOPRIM Inactive CHERATUSSIN AC 100-10 MG/5ML SYRP 1 tsp by mouth every 4 hours as needed for cough CHERATUSSIN AC 100-10 MG/5ML SYRP 682787 GUAIFENESIN-CODEINE Inactive LEVOTHYROXINE SODIUM 75 MCG TABS Take 1 tab daily LEVOTHYROXINE SODIUM 75 MCG TABS 840078 LEVOTHYROXINE SODIUM Inactive BACTRIM DS 800-160 MG TAB 1 tab by mouth twice daily BACTRIM DS 800-160 MG TAB 19820606 TRIMETHOPRIM-SULFAMETHOXAZOLE Inactive AZITHROMYCIN 250 MG TABS 2 po qd x 1 day, then 1 po qd x 4 days AZITHROMYCIN 250 MG TABS 7619980 AZITHROMYCIN Inactive CEFDINIR 300 MG CAPS by mouth twice a day CEFDINIR 300 MG CAPS 20020708 CEFDINIR Inactive AZITHROMYCIN 250 MG TABS 2 pills on day 1, then 1 pill daily x 4 days AZITHROMYCIN 250 MG TABS 9362288 AZITHROMYCIN Inactive DOXYCYCLINE HYCLATE 100 MG CAP 1 cap by mouth twice daily DOXYCYCLINE HYCLATE 100 MG CAP 8524339 DOXYCYCLINE HYCLATE Inactive FUROSEMIDE 20 MG TABS 1 pill by mouth daily, for edema FUROSEMIDE 20 MG TABS 654718 FUROSEMIDE Inactive AZITHROMYCIN 250 MG TABS 2 po qd x 1 day, then 1 po qd x 4 days AZITHROMYCIN 250 MG TABS 6131873 AZITHROMYCIN Inactive CEFTIN 500 MG TAB 1 twice a day CEFTIN 500 MG TAB 287391 CEFUROXIME AXETIL Inactive CEFDINIR 300 MG CAPS [...] for 2 days PREDNISONE 20 MG TAB 550554 PREDNISONE Inactive Immunizations Vaccine Administration Date Value Standard Description Seasonal influenza vaccine, injectable, containing preservative, for > 3 years old (Afluria, FluLaval, Fluzone, Fluvirin, Fluarix, Agriflu(>=18 yo)) Fluzone (>3 yrs.) [ULF510] Influenza, seasonal, injectable influenza immunization (Flu Vax) has been administered Influenza - Unspecified Formulation [CVX88] influenza virus vaccine, unspecified formulation Seasonal influenza vaccine, injectable, containing preservative, for > 3 years old (Afluria, FluLaval, Fluzone, Fluvirin, Fluarix, Agriflu(>=18 yo)) Fluzone (>3 yrs.) [CKL601] Influenza, seasonal, injectable pneumococcal immunization administered Pneumovax 23 [CVX33] pneumococcal polysaccharide vaccine, 23 valent dT (Diphtheria and Tetanus) booster given given Td(adult) unspecified formulation Boostrix (Tetanus toxoid, reduced diphtheria toxoid and acellular pertussis vaccine, adsorbed), booster Boostrix [KWC798] tetanus toxoid, reduced diphtheria toxoid, and acellular [...] Panel - Chemistry sodium, serum 142 mmol/L 350-290 9446/06/30 potassium, serum 4.4 mmol/L 3.5-5.2 chloride, serum [...] Rate - Chemistry sodium, serum 139 mmol/L 690-115 0086/03/24 carbon dioxide, venous blood 22.4 mmol/L 21.0-32.0 [...] ... - Chemistry sodium, serum 143 mmol/L 853-379 1279/05/02 carbon dioxide, venous blood 25.6 mmol/L 21.0-32.0 [...] dipstick Negative Negative sodium, serum 142 mmol/L 071-730 4539/07/18 carbon dioxide, venous blood 27.8 mmol/L 21.0-32.0 [...] negative Encounters Code Encounter Date Provider Facility CPT-08515 Level 4 Est. Patient 16:31:27 CDT Gab Padron MD [facility] CPT-66279 Level 2 Est. Patient 12:23:38 CDT Jared Og MD [facility] CPT-49588 Level 3 Est. Patient 11:01:51 CDT Gab Padron MD [facility]-33402 Level 3 Est. Patient 15:27:02 CDT Jared Og MD [facility] CPT-21033 Level 4 Est. Patient 09:25:27 CDT Gab Padron MD [facility]-16488 Level 3 Est. Patient 10:29:41 CDT Rodrigo Sarah [facility]-92799 Level 4 Est. Patient 17:51:05 CDT Gab Padron MD [facility]-18023 Level 3 Est. Patient 14:18:08 CDT Gab Padron MD [facility]-43635 Level 4 Est. Patient 10:18:54 CDT Gab Padron MD [facility]-34561 Level 3 Est. Patient 11:30:07 CDT Rodrigo Sarah [facility]-75345 Level 4 Est. Patient 21:02:30 [employer] Gab Padron MD [facility]-76473 Level 3 Est. Patient 11:02:19 [employer] Gab Padron MD [facility] CPT-40270 Level 4 Est. Patient 22:24:31 [employer] Gab Padron MD [facility] CPT-62603 Level 3 Est. Patient 18:33:46 [employer] Gab Padron MD [facility] CPT-96902 Level 3 Est. Patient 16:19:11 CDT Yolande Lindsay MD PhD [facility]-61156 Level 3 Est. Patient 18:59:14 CDT Yolande Lindsay MD PhD [facility]-49811 Level 4 Est. Patient 21:29:26 CDT Yolande Lindsay MD [facility]-80467 Level 3 Est. Patient 07:37:45 CDT Yolande Lindsay MD [facility]-08746 Level 3 Est. Patient 17:03:46 CDT Yolande Lindsay MD [facility]-07033 Level 4 Est. Patient 20:02:13 [employer] Yolande Lindsay MD [facility] [place]-93638 Level 3 Est. Patient 16:02:07 [employer] Alexis Ordaz MD [facility]-63680 Level 3 Est. Patient 12:41:24 [employer] Yolande Lindsay MD [facility] [place]-60299 Level 3 Est. Patient 15:41:20 [employer] Yolande Lindsay MD [facility] [place]-28204 Level 3 Est. Patient 13:20:02 [employer] Yolande Lindsay MD [facility]-97755 Level 3 Est. Patient 15:00:38 CDT Jared Og MD [facility]-83704 Level 3 Est. Patient 10:22:32 CDT Yolande Lindsay MD [facility]-30586 Level 3 Est. Patient 17:12:58 CDT Yolande Lindsay MD [facility] [place]-35960 Level 4 Est. Patient 13:30:58 CDT Yolande Lindsay MD [facility] CPT-27596 Level 4 New Patient 09:02:42 CDT Jared Og MD [facility]-36544 Level 3 Est. Patient 08:19:07 CDT Yolande Lindsay MD [facility] [place]-64701 Level 3 Est. Patient 12:00:13 [employer] Gab Padron MD [facility]-83111 Level 3 Est. Patient 16:15:23 [employer] Yolande Lindsay MD [facility] [place]-72253 Level 2 Est. Patient 19:47:15 CDT Yolande Lindsay MD [facility] [place]-76850 Level 3 Est. Patient 21:38:31 CDT Yolande Lindsay MD [facility] [place]-03072 Level 3 Est. Patient 10:25:12 CDT Adiel Rodríguezozzie PERAZA [facility]-11715 Level 4 Est. Patient 10:51:58 CDT Yolande Lindsay MD [facility] [place]-86531 Level 3 Est. Patient 14:04:55 [employer] Rodrigo Sarah [facility]-14132 Level 3 Est. Patient 10:46:35 [employer] Rodrigo Sarah [facility]-43991 Level 3 Est. Patient 14:24:37 [employer] Yolande Lindsay MD [facility] [place]-39933 Level 3 Est. Patient 17:41:58 [employer] Yolande Lindsay MD [facility]-95008 Level 2 Est. Patient 22:01:41 [employer] Rodrigo Sarah [facility]-37059 Level 2 Est. Patient 22:01:11 [employer] Rodrigo Sarah [facility]-03494 Level 3 Est. Patient 10:12:29 [employer] Rodrigo Sarah [facility]-69782 Level 3 Est. Patient 11:05:44 CDT Alexis Ordaz MD [facility]-42673 Level 3 Est. Patient 14:57:20 CDT Yolande Lindsay MD [facility]-32461 Level 3 Est. Patient 14:40:57 CDT Yolande Lindsay MD [facility]65483 Level 3 Est. Patient 20:55:40 CDT Yolande Lindsay MD PhD [facility] CPT-36425 Level 3 Est. Patient 12:42:38 [employer] Yolande Lindsay MD PhD [facility] CPT-87998 Level 3 Est. Patient 11:54:49 [employer] Des Hines MD [facility] CPT-65241 Level 3 Est. Patient 17:06:38 CDT Dewayne PERAZA [facility] Procedures Code Procedure Name Date Entry Date Standard Description CPT-97332 First Vx - Ix admin via ID IM or jet injects without counseling by physician 11:52:31 CDT CPT-22400 Fluzone Preservative Free Intramuscular Suspension 11:52 :31 CDT CPT-70328 Foot, left, comp min 3V - XRAY USE ONLY 09:24:54 CDT CPT-76526 Abd single AP View - XRAY USE ONLY 11:16:17 CDT CPT-10001 T spine AP/ Lat - XRAY USE ONLY 09:34:21 CDT CPT-46369 Chest 2V Frontal and Lat - XRAY USE ONLY 10:48:51 CDT CPT-52938 LS spine comp w obliq 13:28:00 [employer] CPT-J1040 Depo Medrol 80 mg (Methyl Prednisolone Acetate) 10:51: 28 [employer] CPT-J1100 Decadron 8mg (Dexamethasone) 10:51:28 [employer] CPT-37795 Abx/Therapy Injection 10:51:28 [employer] CPT-J1100 Decadron 8mg (Dexamethasone) 21:02:30 [employer] CPT-J1040 Depo Medrol 80 mg (Methyl Prednisolone Acetate) 21:02: 30 [employer] [id number] Event Monitor - MC Transmission 09:12:32 CDT 08/06 [id number] Event Monitor - MC review and interp 09:12:32 CDT [id number] Event Monitor - MC recording 09:12:32 CDT CPT-40874 EKG Trac and Interp 16:50:22 CDT CPT-J1030 Depo Medrol 40 mg (Methyl Prednisolone Acetate) 17:05: 54 CDT CPT-J1100 Decadron 4mg (Dexamethasone) 17:05:54 CDT CPT-74224 Abx/Therapy Injection 17:05:54 CDT CPT-J1100 Decadron 4mg (Dexamethasone) 16:55:28 CDT CPT-J1030 Depo Medrol 40 mg (Methyl Prednisolone Acetate) 16:55: 28 CDT CPT-04028 Ankle Complete - Min 3V 15:58:50 CDT CPT-20440 Knee 3V 15:58:50 CDT CPT-00335 Hip comp min 2V 15:58:50 CDT CPT-J2270 Morphine Sulfate 10 mg 14:25:44 [employer] CPT-J2550 Phenergan 12.5 mg (Promethazine) 14:25:44 [employer] CPT-72173 Abx/Therapy Injection 14:25:44 [employer] CPT-J2550 Phenergan 12.5 mg (Promethazine) 14:08:03 [employer] CPT-J2270 Morphine Sulfate 10 mg 14:08:03 [employer] CPT-55901 Bladder Scan 15:00:38 CDT CPT-TCMM Transitional Care Mgmt-Moderate 09:52:22 CDT CPT-J1030 Depo Medrol 40 mg (Methyl Prednisolone Acetate) 10:55: 18 CDT CPT-J1100 Decadron 4mg (Dexamethasone) 10:55:18 CDT CPT-19556 Abx/Therapy Injection 10:55:18 CDT CPT-J1030 Depo Medrol 40 mg (Methyl Prednisolone Acetate) 10:22: 32 CDT CPT-J1100 Decadron 4mg (Dexamethasone) 10:22:32 CDT CPT-76760 Postop F/U Visit 14:37:13 CDT CPT-72745 Ankle Complete - Min 3V 17:11:58 CDT CPT-95283 Foot comp min 3V 17:11:58 CDT CPT-93984 Bladder Scan 09:56:58 CDT CPT-31943 Postop F/U Visit 09:56:58 CDT CPT-33973 Cystoscopy 09:02:42 CDT CPT-43570 Bladder Scan 09:02:42 CDT CPT-67663 Abd single AP View 16:00:35 CDT CPT-34519 Administration single or combination vaccine inc oral 10 :15:43 CDT CPT-25957 Influenza split virus > age 3 10:15:43 CDT CPT-08261 Nail Avulsion 09:24:57 CDT CPT-OV Office Visit 11:15:41 CDT CPT-89826 Abx/Therapy Injection 10:51:30 CDT CPT-J3301 Kenalog 40 mg (Triamcinolone Acetonide) 10:25:12 CDT CPT-J1100 Decadron 4mg (Dexamethasone) 10:25:12 CDT CPT-82744 Anoscopy diagnostic 10:36:12 CDT CPT-OV Office Visit 15:34:31 CDT CPT-46823 Abx/Therapy Injection 08:21:15 [employer] CPT-J1885 Toradol 60 mg (Ketorolac) 10:46:35 [employer] CPT-OV Office Visit 19:51:16 [employer] CPT-38353 Spec Collection and Handling Fee 14:34:18 [employer] CPT-PV Prev. Care Visit 14:19:18 [employer] CPT-87873 Postop F/U Visit 14:47:51 [employer] CPT-52851 Postop F/U Visit 15:15:14 [employer] CPT-01679 Postop F/U Visit 14:41:43 CDT CPT-14587 Postop F/U Visit 15:47:46 CDT CPT-OV Office Visit 15:27:23 CDT CPT-OV Office Visit 17:20:34 CDT CPT-79318 Abx/Therapy Injection 15:05:57 CDT CPT-J1100 Decadron 8mg (Dexamethasone) 14:44:57 CDT CPT-J1040 Depo Medrol 80 mg (Methyl Prednisolone Acetate) 14:44: 57 CDT CPT-JTINJ Joint Injection 10:17:37 CDT CPT-74895 Administration 2+ single or combination vaccines inc oral 13:01:46 [employer] CPT-23188 Administration single or combination vaccine inc oral 13 :01:46 [employer] CPT-74883 Pneumovax 13:01:46 [employer] CPT-59996 Influenza split virus > age 3 13:01:46 ICE CREAM VAN VENDOR [id number] Administration single or combination vaccine inc oral 08 :56:49 CDT [id number] Tdap 08:56:49 CDT
--- OUTSIDE RECORDS SUMMARY | 2017-03-21 22:10 | XMS REPORT ---
Author Author [facility] Medical Staff Organization [facility] Address [address] [id number] Phone [phone] Care Team Providers Care Bottle Packer Name Role Phone EVELYN SPEARS MD PP [phone] Summary purpose TRANSITION OF CARE AUTO GENERATION [...]
--- OUTSIDE RECORDS SUMMARY | 2017-03-21 22:10 | XMS REPORT ---
Author Author [facility] Medical Staff Organization [facility] Address [address] [id number] Phone [phone] Care Team Providers Care Rv Repair Technician Name Role Phone EVELYN SPEARS MD PP [phone] EVELYN SPEARS MD PP [phone] EVELYN SPEARS MD, PP [phone] Summary purpose TRANSITION OF CARE AUTO GENERATION Chief Complaint and Reason for Visit Admit Diagnosis 1 UNCONTROLLED SEIZURE ACTIVITY Problem list No authorized problems tracked for continuity of care are available for this visit. Encounters No authorized problems tracked for encounter diagnoses are available for this visit. Medications Discharge Medications Status Medication Directions Current Aspirin Child 81 mg chewable tablet 81 milligram (s) oral Daily Current Docusate Sodium (COLACE): CAPSULE 100 MG oral Give PO As Needed for CONSTIPATION Current EpiPen 0.3 mg/0.3 mL (1:1,000) IM Injector 0.3 milligram (s) Intramuscular As Needed never taken Current Flexeril 10 mg tablet 10 milligram (s) oral As Needed muscles Current Lasix 20 mg tablet 20 milligram (s) oral As Needed diuretic Current Levetiracetam (KEPPRA): TABLET 500 MG oral Give PO Twice a day Current levothyroxine 88 mcg tablet 88 microgram(s) oral Daily thyroid Current Lipitor 10 mg tablet 10 milligram (s) oral Bedtime daily Current lisinopril 10 mg Tab 20 milligram (s) oral Daily htn Current oxcarbazepine 600 mg Tab 600 milligram (s) oral Twice a day bipolar Current Topamax 25 mg tablet 75 milligram (s) oral Twice a day Current Zofran 4 mg tablet 4 milligram (s) oral As Needed nausea Stopped Stool Softener 100 mg capsule 100 milligram (s) oral As Needed constipation Allergies, adverse reactions, alerts Allergen Category Ingredient [...] Relevant diagnostic tests and/or laboratory data RESULTS [id number]:18:00 Progress Note PROGRESS NOTE 09/06/2015 16:18:04 S:I just spoke with , who is the patient's neurologist out [place] [facility] [place]We discussed the patient's history.Given the patient had approximately 7 generalized seizures during the course of the past 6 hours, she instructed us to use 2 mg of Ativan with the next seizure, and transfer to if the patient has yet another seizure.If the patient does not have any more seizures, and we are able to discharge the patient from here tomorrow, the patient will be instructed to make an appointment with a neurologist for followup and further outpatient diagnostic workup. DAIN Winter/jt09/06/2015 16:18:07/09/0309/06/2015 16:20:10 Clinic Code: cc: <[facility] [address] [place] [address]<END HEADER> Routine Urinalysis [id number]:55:00 Result Normal Range Units Color YELLOW Clarity Clear Specific [place] 1.010 1.003-1.035 pH 6.0 4.5-8.0 Glucose NEGATIVE Bilirubin NEGATIVE Ketones NEGATIVE Protein NEGATIVE Urobilinogen 0.2 0-0.2 E.U./dL Nitrites NEGATIVE Blood NEGATIVE Leukocytes NEGATIVE WBCs 0-5 RBCs No RBC's Seen. Squamous Epithelial 2+ Bacteria Rare Amount Drug Screen In House :55:00 Result Normal Range Units Amphetamine Negative Negative Barbiturates Negative Negative Benzodiazepines Negative Negative Cannabinoids Negative Negative *Triage TOXis a medical drug screen to be used only for assessment and treatment of patients. This drug screen cannot be used for employment or legal purposes. Cocaine Negative Negative Mamp/MDMA Negative Negative Methadone Negative Negative Opiates Negative Negative Phencyclidine Negative Negative Tricyclic Antidepressants Negative Negative Chemistry [id number]:04:00 Result Normal Range Units Sodium 135 134-145 mEq/l Potassium 4.2 3.5-5.1 mEq/l Chloride 104 98-107 mEq/l CO2 L 14.9 22-28 mEq/l Glucose 95 70-105 mg/dl BUN 16 7-18 mg/dl Creatinine H 1.67 0.6-1.0 mg/dl Calcium L 8.2 8.4-10.2 mg/dl TP - Total Protein 7.3 6.0-8.3 g/dl Albumin 3.5 3.5-5 g/dl Bilirubin - Total 0.3 0.1-1.0 mg/dl AST 21 10-42 IU/L ALT 31 12-65 IU/L ALP H 90 25-72 IU/L Osmolality L 271.1 280-300 mOsm/L Albumin/Globulin Ratio 0.9 0-8 Anion GAP H 16.1 8-16 BUN/Creatinine Ratio L 9.6 10-20 Estimated GFR L 32 >=60 mL/min/1.7 Hematology [id number]:04:00 Result Normal Range Units WBC 5.0 4.8-10.8 103/uL RBC L 3.9 4.2-5.4 106/uL HGB L 11.4 12.0-16.0 g/dl HCT L 35.8 36.9-47.0 % MCV 92.0 81-99 FL MCH 29.3 27-31 pg MCHC L 31.8 33-37 g/dl RDW 14.2 11.5-15.5 % PLT 178 130-400 103/uL MPV 9.4 7.3-10.4 FL Neutro % 50.4 40-70 % Lymph % 39.3 20-40 % [place] % 9.7 0-10.0 % Eos % 0.0 0-7.0 % Baso % 0.4 0-2 % Neutro # 2.5 1.5-7.5 103/uL Lymph # 2.0 0.9-4.0 103/uL [place] # 0.5 0-0.8 103/uL Eos # 0.0 0-0.6 103/uL Baso # 0.0 0-0.1 103/uL Special Chemistry :04:00 Result Normal Range Units Hemoglobin A1C 5.2 4.5-6.2 % Body Fluid :55:00 Result Normal Range Units pH 6.0 4.5-8.0 Hematology - Other (Misc) :04:00 Result Normal Range Units Sed Rate 26 0-30 Thyroid Testing :04:00 Result Normal Range Units TSH 0.61 0.36-3.74 uIU/mL Free T4 0.78 0.76-1.46 ng/dl Radiology Results :04:00 Result Normal Range Units MPV 9.4 7.3-10.4 FL History of procedures No procedures recorded for this patient visit. Functional status Functional Status Finding Observation Time Hearing Prob Loc none :34 Vision Problems yes :34 Vision Correct Dev glasses :34 Ambulation Asst Dev none :34 Range of Motion full :49 Muscle Strength RUE 5 ROM full resist :49 Muscle Strength RLE 5 ROM full resist :49 Muscle Strength LUE 5 ROM full resist :49 Muscle Strength LLE 5 ROM full resist :49 Transfers assist x 2 :49 Ambulation in room :49 Balance unsteady :49 Bathing Assistance none :34 Eating Assistance none :34 Dressing Assistance none :34 Toileting Assistance none :34 Transfer Assistance none :34 Decline Slf Care/Mob no :34 Phys Cond Stable yes :34 Nutrition normal :49 Diet regular :49 Oral Cavity moist and intact :49 Teeth dentures :49 Dental Hygiene good :49 Abdomen Appearance obese [id number] Abdomen soft :49 Bowel Sounds present :49 NG Tube no :49 Feeding Tube none :49 Bajwa no :49 Cont Bladder Irr no :49 Ostomy no :49 Stool other (specify) Comment: unable to assess at htis time :49 Urination other (specify) Comment: unable to assess at this time :49 Quality sym/unlabored :49 Cough absent :49 Secretions no :49 Breath Sounds RUL clear :49 Breath Sounds RML clear :49 Breath Sounds RLL clear :49 Breath Sounds LESLIE clear :49 Breath Sounds LLL clear :49 Airway natural :49 Chest Tube no :49 Oxygen no :50 Oxygen Mask Type non-rebreather :37 Oxygen Flow Rate 15 Comment: during seizure :37 C-PAP no :49 BI-PAP no :49 Temp >100.4 no :49 Temp <96.8 no :49 Chills with rigors no :49 HR > 90bpm no :49 Respirations > 20 no :49 Systolic <90 no :49 headache stiff neck no :49 WBC > 70035 no :49 WBC < 4000 no :49 IV Site Location R AC :44 IV Type peripheral :44 IV Site Information existing :44 IV Site [place] 20 :44 IV Site Appearance WNL :44 IV Site Color clear :44 IV Site Patent yes :44 Dressing Type occlusive :44 Nursing Note Report called to MIGUEL Bradford at [facility]. :55 Cognitive Status Finding Observation Time Oriented To Date 0 No :[address] 5 Yes :34 Name 3 Objects 0 No :34 Name Object in Rm 2 Yes :34 Recall 3 Objects 0 No :34 Repeats a Phrase 0 No :34 Follows Verbal Direc 3 Yes :34 Follows Written Dire 0 No :34 Write a Sentance 0 No :34 Draw an Object 0 No :34 Mini Mental Total 10 points :34 Less than 20 Phys no (explain) Comment: admitted from ER :34 Learning Ability comprehends well :45 Neurological no :45 Psychological yes :45 Physical no :45 Hearing no :45 Transfill Technician Needed no :45 Sign Language no :45 Emotional no :45 Vision yes :45 [place]uage no :45 Financial no :45 Vital signs Type Value Date Respiration Rate 22breaths per minute :50 Pulse 79beats per minute :50 Oxygen Saturation 94% :50 BP Systolic 116mmHg :50 BP Diastolic 47mmHg :50 Temperature 97.7F :50 Social history Type Value Smoking Status FORMER SMOKER Treatment Plan No treatment plan text is available for this visit. Hospital discharge instructions Dismissal Condition fair Disposition on DC admitted Comment: OBS 5 Valuables yes Valuable Type jewelry (describe) Comment: wedding bands, glasses PNE Vac 2015 Flu Vac 2015 Tetanus Vac 2012
--- OUTSIDE RECORDS SUMMARY | 2017-03-21 22:10 | XMS REPORT | Clinical Summary ---
Author Author Admin, E Organization [facility] Address Unknown Phone Unavailable Allergies, Adverse Reactions, Alerts Allergy Name Reaction Description Start Date Severity Status Provider VALENTIN Critical Active Rodrigo Montemayorl FINANCIAL REPORTING ANALYST CHLORHEXIDINE GLUCONATE tongue and gums swollen Critical Active Hoadante Otto RMA NORFLEX Rash Critical Active Silvestrellina Frazell FINANCIAL REPORTING ANALYST TRAZODONE HCL sees things Critical Active [...] other complication POISON KUNAL DERMATITIS 692.6 Resolved Yoladne Lindsay MD PhD Contact dermatitis and other [...] Lumbago Cough 786.2 Active Jillina Tyrel FINANCIAL REPORTING ANALYST Cough 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 Jillina Frazellilian FINANCIAL REPORTING ANALYST 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 Anemia 285.9 Active Gab Padron MD Anemia, unspecified Conjunctivitis 372.30 Active Jillnacho Sarah APRN Conjunctivitis, unspecified Sinusitis 473.9 Active Silvestrellina Frazell FINANCIAL REPORTING ANALYST Unspecified sinusitis (chronic) Nonspecific syndrome suggestive of viral illness 079.99 Active Jillina Frazell FINANCIAL REPORTING ANALYST Unspecified viral infection Laryngitis 464.00 Active Jillina Frazell FINANCIAL REPORTING ANALYST Acute laryngitis without mention of obstruction [...] pain, left 789.09 Active Jillina Frazell FINANCIAL REPORTING ANALYST Abdominal pain, other specified site; multiple sites Abdominal pain, generalized 789.07 Active Jillina Farshadzell FINANCIAL REPORTING ANALYST Abdominal pain, generalized Back pain, thoracic region, left 724.1 Active Jillina Frazell FINANCIAL REPORTING ANALYST Pain in thoracic spine Abdominal pain, [...] ORL CAV&DIGESTV SYS NEC ICD-V58.75 04/25 Inactive Yoalnde Lindsay MD PhD GERD ICD-530.81 Inactive Todd Callaway MD ROUTINE GYNECOLOGICAL EXAMINATION ICD-V72.31 Inactive Yolande Lindsay MD PhD MUSCLE PAIN ICD-729.1 Inactive Yolande Lindsay MD PhD FISSURE, ANAL ICD-565.0 Inactive Yolande Lindsay MD PhD CHEST PAIN, UNSPECIFIED ICD-786.50 Inactive Yolande Lindsay MD PhD HEADACHE ICD-784.0 Inactive Yolande Lindsay MD PhD LONG-TERM (CURRENT) [...] pneumonia ICD-483.0 Inactive Yolande Lindsay MD PhD Hematuria ICD-599.70 Inactive Yolande Lindsay MD PhD Ankle pain, right ICD-719.47 Inactive Yolande Lindsay MD PhD Muscle spasm, [...] 1/2 tab daily for 2 days PREDNISONE 62341511680 No Longer Active Gab Padron MD Active ZOFRAN ODT 4 MG TBDP 1 po q6hr PRN Nausea ONDANSETRON 38274743497 Active Jillina Frazell FINANCIAL REPORTING ANALYST Active IBUPROFEN 600 MG TAB 1 tablet by mouth every 6 hours for 7 days, then 1 tablet every 6 hours as needed. Take with food IBUPROFEN 96397327965 Active Jillina Frazell FINANCIAL REPORTING ANALYST Active BACTRIM DS 800-160 MG TAB 1 tab by mouth twice daily TRIMETHOPRIM-SULFAMETHOXAZOLE 66647318775 No Longer Active Gab Padron MD Active ADVAIR DISKUS 250-50 MCG/DOSE AEPB 1 puff BID FLUTICASONE- SALMETEROL 96737242376 Active Rodrigo Sarah APRN Active LEVOTHYROXINE SODIUM 75 MCG TABS Take 1 tab daily LEVOTHYROXINE SODIUM 69111699095 No Longer Active Mariana Cuadra EDELMIRAA Active SYNTHROID 88 MCG ORAL TABS Take one by mouth daily LEVOTHYROXINE SODIUM 16306990603 Active Tisha Lambert APRN Active CHERATUSSIN AC 100-10 MG/5ML SYRP 1 tsp by mouth every 4 hours as needed for cough GUAIFENESIN-CODEINE 89777533885 No Longer Active Gab Padron MD Active POLYTRIM 95530-6.1 UNIT/ML-% SOLN 1 gtt to affected eye q3h x 7 days POLYMYXIN B-TRIMETHOPRIM 81468255506 No Longer Active Gab Padron MD Active FLUTICASONE PROPIONATE 50 MCG/ACT SUSP 1 to 2 sprays each nostril daily 04/21 FLUTICASONE PROPIONATE 29303803013 No Longer Active Gab Padron MD Active TRILEPTAL 600 MG TABS Take one 1 tablet in Am and 1 tablet at night OXCARBAZEPINE 98964046087 Active Gab Padron MD Active CEFDINIR 300 MG CAPS 1 po BID x 10 days CEFDINIR 12367882691 No Longer Active Rodrigo Sarah APRN Active CEFTIN 500 MG TAB 1 twice a day CEFUROXIME AXETIL 99722681258 No Longer Active Gab Padron MD Active AZITHROMYCIN 250 MG TABS 2 po qd x 1 day, then 1 po qd x 4 days AZITHROMYCIN 59327105717 No Longer Active Rodrigo Sarah APRN Active CLARITIN 10 MG TAB 1 tablet by mouth daily as needed for allergies LORATADINE 81675649940 Active Rodrigo Sarah APRN Active OXYCODONE HCL 5 MG ORAL CAPS 1 TAB PO Q HS OXYCODONE HCL 57685441985 No Longer Active Rodrigo Sarah APRN Active NIASPAN 500 MG ORAL CR-TABS 1 pill nightly x 1 week, then 2 pills nightly x 1 week, then 3 pills nightly x 1 week, then 4 pills nightly NIACIN (ANTIHYPERLIPIDEMIC) 58156089265 No Longer Active Rodrigo Sarah APRN Active NIACIN 500 MG TABS 1 pill by mouth nightly x 1 week, then 2 pills x 1 week, then 3 pills x 1 week, then 4 pills nightly - take after evening meal, with applesauce or an apple NIACIN 78191808910 No Longer Active Yolande Lindsay MD PhD Active FISH OIL 1000 MG CAPS 3 pills daily OMEGA-3 FATTY ACIDS 53470174195 Active Yolande Lindsay MD PhD Active TRIAMCINOLONE ACETONIDE 0.1 % CREA apply bid sparingly to rash TRIAMCINOLONE ACETONIDE 90244952598 Active Yolande Lindsay MD PhD Active FUROSEMIDE 20 MG TAB 1 tablet by mouth daily FUROSEMIDE 50254155334 Active Tisha Lambert APRN Active LISINOPRIL 20 MG ORAL TABS 1 tab by mouth daily LISINOPRIL 50783105564 Active Tisha Lambert APRN Active FUROSEMIDE 20 MG TABS 1 pill by mouth daily, for edema FUROSEMIDE 13230271756 No Longer Active Yolande Lindsay MD PhD Active ATORVASTATIN CALCIUM 10 MG TABS 1 pill by mouth daily, for cholesterol 09/06 ATORVASTATIN CALCIUM 71934320100 Active Tisha Lambert APRN Active CALCIUM 600+D PLUS MINERALS 600-400 MG-UNIT ORAL CHEW 1 tab by mouth daily CALCIUM CARBONATE-VIT D-MIN 91414219495 No Longer Active Yolande Lindsay MD PhD Active CYCLOBENZAPRINE HCL 10 MG TABS 1 tablet by mouth three times daily as needed for muscle spasm/pain CYCLOBENZAPRINE HCL 04009421552 Active Yolande Lindsay MD PhD Active ONDANSETRON 4 MG TBDP 1 q4h PRN nausea ONDANSETRON 47560083732 Active Yolande Lindsay MD PhD Active ADULT ASPIRIN EC LOW STRENGTH 81 MG TBEC Take 1 tablet by mouth daily 2014 ASPIRIN 27477761317 No Longer Active Yolande Lindsay MD PhD Active ZOFRAN ODT 4 MG TBDP 1 pill dissolved by mouth every 4 hours if needed for nausea ONDANSETRON 21855408482 No Longer Active Yolande Lindsay MD PhD Active CEFTIN 500 MG TAB 1 twice a day CEFUROXIME AXETIL 61338068325 No Longer Active Yolande Lindsay MD PhD Active ALBUTEROL SULFATE 0.083 % NEBU SOLN one vial per nebulizer every 4-6 hours as needed ALBUTEROL SULFATE 41047205662 No Longer Active Alexis Ordaz MD Active DOXYCYCLINE HYCLATE 100 MG CAP 1 cap by mouth twice daily DOXYCYCLINE HYCLATE 06698202335 No Longer Active Yolande Lindsay MD PhD Active CYCLOBENZAPRINE HCL 10 MG TABS 1/2 - 1 tab by mouth three times daily if needed for spasms/pain CYCLOBENZAPRINE HCL 01225857021 No Longer Active Yolande Lindsay MD PhD Active AZITHROMYCIN 250 MG TABS 2 pills on day 1, then 1 pill daily x 4 days AZITHROMYCIN 46163296700 No Longer Active Yolande Lindsay MD PhD Active XOPENEX 1.25 MG/3ML NEBU 1 neb every 4 hours if needed for cough/congestion LEVALBUTEROL HCL 20330372128 No Longer Active Yolande Lindsay MD PhD Active DOXYCYCLINE HYCLATE 100 MG TAB 1 tab twice a day for 14 days 2013 DOXYCYCLINE HYCLATE 36598030683 No Longer Active Yolande Lindsay MD PhD Active PREVACID 30 MG CPDR Take 1 tablet by mouth daily-PRN LANSOPRAZOLE 56195977798 No Longer Active Yolande Lindsay MD PhD Active PA VITAMIN D-3 2000 UNIT CAPS 1 CAP PO DAILY CHOLECALCIFEROL 08613443575 No Longer Active Yolande Lindsay MD PhD Active CEFDINIR 300 MG CAPS by mouth twice a day CEFDINIR 17901298530 No Longer Active Gab Padron MD Active TOPAMAX 50 MG TABS 1 PO twice daily TOPIRAMATE 00713296068 Active Yolande Lindsay MD PhD Active AZITHROMYCIN 250 MG TABS 2 po qd x 1 day, then 1 po qd x 4 days AZITHROMYCIN 82114256359 No Longer Active Yolande Lindsay MD PhD Active DICLOFENAC SODIUM 75 MG TBEC 1 tablet by q 12 hours PRN headaches DICLOFENAC SODIUM 77427718313 No Longer Active Yolande Lindsay MD PhD Active FLONASE 50 MCG/ACT SUSP 1 spray each nostril am and hs FLUTICASONE PROPIONATE 74971504119 No Longer Active Todd Callaway MD Active ANUSOL-HC 25 MG SUPPOSITORY 1 rectally twice a day as needed for hemorrhoids HYDROCORTISONE JAYDEN (RECTAL) 41670228236 No Longer Active Yolande Lindsay MD PhD Active ANUSOL-HC 25 MG SUPPOSITORY 1 suppository rectally each evening as needed for anal fissure HYDROCORTISONE JAYDEN (RECTAL) 00080722404 No Longer Active LONNIE Iglesias Active VALIUM 5 MG TAB 1 po 30 minutes prior to your MRI DIAZEPAM 75358540549 No Longer Active LONNIE Iglesias Active METHOCARBAMOL 750 MG TABS 1 PO QID PRN METHOCARBAMOL 87180898445 No Longer Active Daphne Wetzel APRN Active NITROSTAT 0.4 MG SUBL as directed NITROGLYCERIN 75131982469 No Longer Active Jillina Frazell FINANCIAL REPORTING ANALYST Active ROBAXIN-750 750 MG TABS 2 four times a day for 3 days as needed for muscle spasm, then 1 four times a day as needed METHOCARBAMOL 24206417880 No Longer Active Rodrigo Sarah APRN Active HYDROCODONE-ACETAMINOPHEN 5-325 MG TABS 1 q 4-6 hrs prn HYDROCODONE-ACETAMINOPHEN 25528038469 No Longer Active Rodrigo Sarah APRN Active VERAPAMIL HCL CR 180 MG CR-TABS TAKE 1 TAB DAILY VERAPAMIL HCL 31250080170 No Longer Active Yolande Lindsay MD PhD Active BACTRIM DS 800-160 MG TAB 1 tab by mouth twice daily TRIMETHOPRIM-SULFAMETHOXAZOLE 14226371339 No Longer Active Yolande Lindsay MD PhD Active NEXIUM 40 MG PACK 1 by mouth daily ESOMEPRAZOLE MAGNESIUM 67148804346 No Longer Active Des Hines MD Active EPIPEN 2-CHARLETTE 0.3 MG/0.3ML OMARI as need for allergic reaction EPINEPHRINE 96247637632 Active Yolande Lindsay MD PhD Active NEXIUM 40 MG CPDR 1 PO Q D DAY ESOMEPRAZOLE MAGNESIUM 93888886700 No Longer Active Sadia Perry RN Active NEXIUM 40 MG PACK 1 by mouth daily NEXIUM 40 MG PACK ESOMEPRAZOLE MAGNESIUM Inactive VERAPAMIL HCL CR 180 MG CR-TABS TAKE 1 TAB DAILY VERAPAMIL HCL CR 180 MG CR-TABS VERAPAMIL HCL Inactive HYDROCODONE-ACETAMINOPHEN 5-325 MG TABS 1 q 4-6 hrs prn HYDROCODONE-ACETAMINOPHEN 5-325 MG TABS 200554 HYDROCODONE-ACETAMINOPHEN Inactive ROBAXIN-750 750 MG TABS 2 four times a day for 3 days as needed for muscle spasm, then 1 four times a day as needed ROBAXIN-750 750 MG TABS 071565 METHOCARBAMOL Inactive NITROSTAT 0.4 MG SUBL as directed NITROSTAT 0.4 MG SUBL 551242 NITROGLYCERIN Inactive METHOCARBAMOL 750 MG TABS 1 PO QID PRN METHOCARBAMOL 750 MG TABS 829025 METHOCARBAMOL Inactive VALIUM 5 MG TAB 1 po 30 minutes prior to your MRI VALIUM 5 MG TAB 700531 DIAZEPAM Inactive ANUSOL-HC 25 MG SUPPOSITORY 1 suppository rectally each evening as needed for anal fissure ANUSOL-HC 25 MG SUPPOSITORY 6186051 HYDROCORTISONE JAYDEN (RECTAL) Inactive ANUSOL-HC 25 MG SUPPOSITORY 1 rectally twice a day as needed for hemorrhoids ANUSOL-HC 25 MG SUPPOSITORY 7615572 HYDROCORTISONE JAYDEN (RECTAL) Inactive FLONASE 50 MCG/ACT SUSP 1 spray each nostril am and hs FLONASE 50 MCG/ACT SUSP FLUTICASONE PROPIONATE Inactive DICLOFENAC SODIUM 75 MG TBEC 1 tablet by q 12 hours PRN headaches DICLOFENAC SODIUM 75 MG TBEC 342500 DICLOFENAC SODIUM Inactive PA VITAMIN D-3 2000 UNIT CAPS 1 CAP PO DAILY PA VITAMIN D-3 2000 UNIT CAPS CHOLECALCIFEROL Inactive PREVACID 30 MG CPDR Take 1 tablet by mouth daily-PRN PREVACID 30 MG CPDR 577311 LANSOPRAZOLE Inactive DOXYCYCLINE HYCLATE 100 MG TAB 1 tab twice a day for 14 days 2013 DOXYCYCLINE HYCLATE 100 MG TAB 9731938 DOXYCYCLINE HYCLATE Inactive XOPENEX 1.25 MG/3ML NEBU 1 neb every 4 hours if needed for cough/congestion XOPENEX 1.25 MG/3ML NEBU 263313 LEVALBUTEROL HCL Inactive CYCLOBENZAPRINE HCL 10 MG TABS 1/2 - 1 tab by mouth three times daily if needed for spasms/pain CYCLOBENZAPRINE HCL 10 MG TABS 565434 CYCLOBENZAPRINE HCL Inactive ALBUTEROL SULFATE 0.083 % NEBU SOLN one vial per nebulizer every 4-6 hours as needed ALBUTEROL SULFATE 0.083 % [facility] SOLN 884613 ALBUTEROL SULFATE Inactive CEFTIN 500 MG TAB 1 twice a day CEFTIN 500 MG TAB 751723 CEFUROXIME AXETIL Inactive ZOFRAN ODT 4 MG TBDP 1 pill dissolved by mouth every 4 hours if needed for nausea ZOFRAN ODT 4 MG TBDP 452863 ONDANSETRON Inactive ADULT ASPIRIN EC LOW STRENGTH 81 MG TBEC Take 1 tablet by mouth daily 2014 ADULT ASPIRIN EC LOW STRENGTH 81 MG TBEC 925084 ASPIRIN Inactive CALCIUM 600+D PLUS MINERALS 600-400 [...] or an apple NIACIN 500 MG TABS 991614 NIACIN Inactive NIASPAN 500 MG ORAL CR-TABS 1 pill nightly x 1 week, then 2 pills nightly x 1 week, then 3 pills nightly x 1 week, then 4 pills nightly NIASPAN 500 MG ORAL CR-TABS NIACIN (ANTIHYPERLIPIDEMIC) Inactive OXYCODONE HCL 5 MG ORAL CAPS 1 TAB PO Q HS OXYCODONE HCL 5 MG ORAL CAPS 6840913 OXYCODONE HCL Inactive FLUTICASONE PROPIONATE 50 MCG/ACT SUSP 1 to 2 sprays each nostril daily 04/21 FLUTICASONE PROPIONATE 50 MCG/ACT SUSP 7491948 FLUTICASONE PROPIONATE Inactive POLYTRIM 04535-9.1 UNIT/ML-% SOLN 1 gtt to affected eye q3h x 7 days POLYTRIM 31982-2.1 UNIT/ML-% SOLN 627725 POLYMYXIN B- TRIMETHOPRIM Inactive CHERATUSSIN AC 100-10 MG/5ML SYRP 1 tsp by mouth every 4 hours as needed for cough CHERATUSSIN AC 100-10 MG/5ML SYRP 858282 GUAIFENESIN-CODEINE Inactive LEVOTHYROXINE SODIUM 75 MCG TABS Take 1 tab daily LEVOTHYROXINE SODIUM 75 MCG TABS 176085 LEVOTHYROXINE SODIUM Inactive BACTRIM DS 800-160 MG TAB 1 tab by mouth twice daily BACTRIM DS 800-160 MG TAB 19820606 TRIMETHOPRIM-SULFAMETHOXAZOLE Inactive AZITHROMYCIN 250 MG TABS 2 po qd x 1 day, then 1 po qd x 4 days AZITHROMYCIN 250 MG TABS 6973510 AZITHROMYCIN Inactive CEFDINIR 300 MG CAPS by mouth twice a day CEFDINIR 300 MG CAPS 20020708 CEFDINIR Inactive AZITHROMYCIN 250 MG TABS 2 pills on day 1, then 1 pill daily x 4 days AZITHROMYCIN 250 MG TABS 6381002 AZITHROMYCIN Inactive DOXYCYCLINE HYCLATE 100 MG CAP 1 cap by mouth twice daily DOXYCYCLINE HYCLATE 100 MG CAP 7364765 DOXYCYCLINE HYCLATE Inactive FUROSEMIDE 20 MG TABS 1 pill by mouth daily, for edema FUROSEMIDE 20 MG TABS 286260 FUROSEMIDE Inactive AZITHROMYCIN 250 MG TABS 2 po qd x 1 day, then 1 po qd x 4 days AZITHROMYCIN 250 MG TABS 6885795 AZITHROMYCIN Inactive CEFTIN 500 MG TAB 1 twice a day CEFTIN 500 MG TAB 148211 CEFUROXIME AXETIL Inactive CEFDINIR 300 MG CAPS 1 po BID x 10 days CEFDINIR 300 MG CAPS 20020708 CEFDINIR Inactive BACTRIM DS 800-160 MG TAB 1 tab by mouth twice daily BACTRIM DS 800-160 MG TAB 406039 TRIMETHOPRIM-SULFAMETHOXAZOLE Inactive PREDNISONE 20 MG TAB 2 tabs daily for 3 days, 1 tab daily for 3 days, 1/2 tab daily for 2 days PREDNISONE 20 MG TAB 761687 PREDNISONE Inactive Immunizations Vaccine Administration Date Value Standard Description Seasonal influenza vaccine, injectable, containing preservative, for > 3 years old (Afluria, FluLaval, Fluzone, Fluvirin, Fluarix, Agriflu(>=18 yo)) Fluzone (>3 yrs.) [HXX855] Influenza, seasonal, injectable influenza immunization (Flu Vax) has been administered Influenza - Unspecified Formulation [CVX88] influenza virus vaccine, unspecified formulation Seasonal influenza vaccine, injectable, containing preservative, for > 3 years old (Afluria, FluLaval, Fluzone, Fluvirin, Fluarix, Agriflu(>=18 yo)) Fluzone (>3 yrs.) [WUB650] Influenza, seasonal, injectable pneumococcal immunization administered Pneumovax 23 [CVX33] pneumococcal polysaccharide vaccine, 23 valent dT (Diphtheria and Tetanus) booster given given Td(adult) unspecified formulation Boostrix (Tetanus toxoid, reduced diphtheria toxoid and acellular pertussis vaccine, adsorbed), booster Boostrix [RMA169] tetanus toxoid, reduced diphtheria toxoid, and acellular [...] Panel - Chemistry sodium, serum 142 mmol/L 193-304 9005/06/30 potassium, serum 4.4 mmol/L 3.5-5.2 chloride, serum [...] RapidStrep Rflx/Cx, TIERA INFLUENZA A/B - Hematology monocytes as percent of blood leukocytes 11.3 [...] % 11.6-14.8 platelet count 179 10^3/MM^3 10*3/mm3 767-536 9178/03/24 neutrophils as percent of blood leukocytes 64.0 [...] Rate - Chemistry sodium, serum 139 mmol/L 022-550 5494/03/24 creatinine, serum 1.35 mg/dL 0.55-1.30 alanine aminotransferase [...] Negative mg/dL Negative sodium, serum 143 mmol/L 393-796 2719/05/02 carbon dioxide, venous blood 25.6 mmol/L 21.0-32.0 [...] dipstick Negative Negative sodium, serum 142 mmol/L 027-676 4809/07/18 carbon dioxide, venous blood 27.8 mmol/L 21.0-32.0 [...] negative Encounters Code Encounter Date Provider Facility CPT-72818 Level 3 Est. Patient 20:13:34 PATTERNMAKER PRESSURE CAST Jared Og MD [facility] CPT-78878 Level 4 Est. Patient 16:31:27 CDT Gab Padron MD [facility] CPT-56186 Level 2 Est. Patient 12:23:38 CDT Jared Og MD [facility] CPT-23997 Level 3 Est. Patient 11:01:51 CDT Gab Padron MD [facility] CPT-01557 Level 3 Est. Patient 15:27:02 CDT Jared Og MD [facility] CPT-63644 Level 4 Est. Patient 09:25:27 CDT Gab Padron MD [facility] CPT-66693 Level 3 Est. Patient 10:29:41 CDT Rodrigo Sarah [facility] CPT-19775 Level 4 Est. Patient 17:51:05 CDT Gab Padron MD [facility]-84351 Level 3 Est. Patient 14:18:08 CDT Gab Padron MD [facility]-45048 Level 4 Est. Patient 10:18:54 CDT Gab Padron MD [facility] CPT-72528 Level 3 Est. Patient 11:30:07 CDT Rodrigo Sarah [facility] CPT-92734 Level 4 Est. Patient 21:02:30 PATTERNMAKER PRESSURE CAST Gab Padron MD [facility] CPT-83124 Level 3 Est. Patient 11:02:19 PATTERNMAKER PRESSURE CAST Gab Padron MD [facility] CPT-20648 Level 4 Est. Patient 22:24:31 PATTERNMAKER PRESSURE CAST Gab Padron MD [facility] CPT-61101 Level 3 Est. Patient 18:33:46 PATTERNMAKER PRESSURE CAST Gab Padron MD [facility] CPT-87934 Level 3 Est. Patient 16:19:11 CDT Yolande Lindsay MD [facility]-20538 Level 3 Est. Patient 18:59:14 CDT Yolande Lindsay MD [facility] CPT-97873 Level 4 Est. Patient 21:29:26 CDT Yolande Lindsay MD [facility]-03825 Level 3 Est. Patient 07:37:45 CDT Yolande Lindsay MD [facility]-84249 Level 3 Est. Patient 17:03:46 CDT Yolande Lidnsay MD [facility]-05221 Level 4 Est. Patient 20:02:13 PATTERNMAKER PRESSURE CAST Yolande Lindsay MD [facility]-37673 Level 3 Est. Patient 16:02:07 PATTERNMAKER PRESSURE CAST Alexis Ordaz MD [facility]-70558 Level 3 Est. Patient 12:41:24 PATTERNMAKER PRESSURE CAST Yolande Lindsay MD [facility]-53322 Level 3 Est. Patient 15:41:20 PATTERNMAKER PRESSURE CAST Yolande Lindsay MD [facility]-96663 Level 3 Est. Patient 13:20:02 PATTERNMAKER PRESSURE CAST Yolande Lindsay MD [facility]-04002 Level 3 Est. Patient 15:00:38 CDT Jared Og MD [facility] CPT-35230 Level 3 Est. Patient 10:22:32 CDT Yolande Lindsay MD [facility]-68676 Level 3 Est. Patient 17:12:58 CDT Yolande Lindsay MD [facility] CPT-18290 Level 4 Est. Patient 13:30:58 CDT Yolande Lindsay MD [facility] CPT-72924 Level 4 New Patient 09:02:42 CDT Jared Og MD [facility]-19491 Level 3 Est. Patient 08:19:07 CDT Yolande Lindsay MD [facility]-65373 Level 3 Est. Patient 12:00:13 PATTERNMAKER PRESSURE CAST Gab Padron MD [facility]-69361 Level 3 Est. Patient 16:15:23 PATTERNMAKER PRESSURE CAST Yolande Lnidsay MD [facility]-28074 Level 2 Est. Patient 19:47:15 CDT Yolande Lindsay MD [facility]-23319 Level 3 Est. Patient 21:38:31 CDT Yolande Lindsay MD [facility]-36555 Level 3 Est. Patient 10:25:12 CDT Adiel PERAZA [facility]-75758 Level 4 Est. Patient 10:51:58 CDT Yolande Lindsay MD [facility]-11202 Level 3 Est. Patient 14:04:55 PATTERNMAKER PRESSURE CAST Rodrigo Sarah [facility]-78461 Level 3 Est. Patient 10:46:35 PATTERNMAKER PRESSURE CAST Rodrigo Sarah [facility] CPT-00328 Level 3 Est. Patient 14:24:37 PATTERNMAKER PRESSURE CAST Yolande Lindsay MD [facility]-48479 Level 3 Est. Patient 17:41:58 PATTERNMAKER PRESSURE CAST Yolande Lindsay MD [facility]-57875 Level 2 Est. Patient 22:01:41 PATTERNMAKER PRESSURE CAST Rodrigo Sarah [facility] CPT-47374 Level 2 Est. Patient 22:01:11 PATTERNMAKER PRESSURE CAST Rodrigo Sarah [facility] CPT-39278 Level 3 Est. Patient 10:12:29 PATTERNMAKER PRESSURE CAST Rodrigo Sarah [facility] CPT-21242 Level 3 Est. Patient 11:05:44 CDT Alexis Ordaz MD [facility]-41904 Level 3 Est. Patient 14:57:20 CDT Yolande Lindsay MD [facility]-33665 Level 3 Est. Patient 14:40:57 CDT Yolande Lindsay MD [facility]-31238 Level 3 Est. Patient 20:55:40 CDT Yolande Lindsay MD PhD [facility] CPT-48994 Level 3 Est. Patient 12:42:38 PATTERNMAKER PRESSURE CAST Yolande Lindsay MD PhD [facility] CPT-50863 Level 3 Est. Patient 11:54:49 PATTERNMAKER PRESSURE CAST Des Hines MD [facility] CPT-04039 Level 3 Est. Patient 17:06:38 CDT Dewayne PERAZA [facility] Procedures Code Procedure Name Date Entry Date Standard Description CPT-32211 Venipuncture Draw Fee 08:37:59 PATTERNMAKER PRESSURE CAST CPT-72282 Liver Profile - LAB USE ONLY 08:37:59 PATTERNMAKER PRESSURE CAST CPT-29832 Lipid - LAB USE ONLY 08:37:58 PATTERNMAKER PRESSURE CAST CPT-54649 First Vx - Ix admin via ID IM or jet injects without counseling by physician 11:52:31 CDT CPT-25733 Fluzone Preservative Free Intramuscular Suspension 11:52 :31 CDT CPT-68322 Foot, left, comp min 3V - XRAY USE ONLY 09:24:54 CDT CPT-58864 Abd single AP View - XRAY USE ONLY 11:16:17 CDT CPT-05753 T spine AP/ Lat - XRAY USE ONLY 09:34:21 CDT CPT-53535 Chest 2V Frontal and Lat - XRAY USE ONLY 10:48:51 CDT CPT-49525 LS spine comp w obliq 13:28:00 PATTERNMAKER PRESSURE CAST CPT-J1040 Depo Medrol 80 mg (Methyl Prednisolone Acetate) 10:51: 28 PATTERNMAKER PRESSURE CAST CPT-J1100 Decadron 8mg (Dexamethasone) 10:51:28 PATTERNMAKER PRESSURE CAST CPT-84403 Abx/Therapy Injection 10:51:28 PATTERNMAKER PRESSURE CAST CPT-J1100 Decadron 8mg (Dexamethasone) 21:02:30 PATTERNMAKER PRESSURE CAST CPT-J1040 Depo Medrol 80 mg (Methyl Prednisolone Acetate) 21:02: 30 PATTERNMAKER PRESSURE CAST [id number] Event Monitor - MC Transmission 09:12:32 CDT 08/06 [id number] Event Monitor - MC review and interp 09:12:32 CDT [id number] Event Monitor - MC recording 09:12:32 CDT CPT-10117 EKG Trac and Interp 16:50:22 CDT CPT-J1030 Depo Medrol 40 mg (Methyl Prednisolone Acetate) 17:05: 54 CDT CPT-J1100 Decadron 4mg (Dexamethasone) 17:05:54 CDT CPT-02418 Abx/Therapy Injection 17:05:54 CDT CPT-J1100 Decadron 4mg (Dexamethasone) 16:55:28 CDT CPT-J1030 Depo Medrol 40 mg (Methyl Prednisolone Acetate) 16:55: 28 CDT CPT-95579 Ankle Complete - Min 3V 15:58:50 CDT CPT-37324 Knee 3V 15:58:50 CDT CPT-23343 Hip comp min 2V 15:58:50 CDT CPT-J2270 Morphine Sulfate 10 mg 14:25:44 PATTERNMAKER PRESSURE CAST CPT-J2550 Phenergan 12.5 mg (Promethazine) 14:25:44 PATTERNMAKER PRESSURE CAST CPT-83164 Abx/Therapy Injection 14:25:44 PATTERNMAKER PRESSURE CAST CPT-J2550 Phenergan 12.5 mg (Promethazine) 14:08:03 PATTERNMAKER PRESSURE CAST CPT-J2270 Morphine Sulfate 10 mg 14:08:03 PATTERNMAKER PRESSURE CAST CPT-63700 Bladder Scan 15:00:38 CDT CPT-TCMM Transitional Care Mgmt-Moderate 09:52:22 CDT CPT-J1030 Depo Medrol 40 mg (Methyl Prednisolone Acetate) 10:55: 18 CDT CPT-J1100 Decadron 4mg (Dexamethasone) 10:55:18 CDT CPT-44112 Abx/Therapy Injection 10:55:18 CDT CPT-J1030 Depo Medrol 40 mg (Methyl Prednisolone Acetate) 10:22: 32 CDT CPT-J1100 Decadron 4mg (Dexamethasone) 10:22:32 CDT CPT-84768 Postop F/U Visit 14:37:13 CDT CPT-58404 Ankle Complete - Min 3V 17:11:58 CDT CPT-33055 Foot comp min 3V 17:11:58 CDT CPT-11731 Bladder Scan 09:56:58 CDT CPT-01622 Postop F/U Visit 09:56:58 CDT CPT-57408 Cystoscopy 09:02:42 CDT CPT-90348 Bladder Scan 09:02:42 CDT CPT-74456 Abd single AP View 16:00:35 CDT CPT-97298 Administration single or combination vaccine inc oral 10 :15:43 CDT CPT-60541 Influenza split virus > age 3 10:15:43 CDT CPT-28351 Nail Avulsion 09:24:57 CDT CPT-OV Office Visit 11:15:41 CDT CPT-64395 Abx/Therapy Injection 10:51:30 CDT CPT-J3301 Kenalog 40 mg (Triamcinolone Acetonide) 10:25:12 CDT CPT-J1100 Decadron 4mg (Dexamethasone) 10:25:12 CDT CPT-80004 Anoscopy diagnostic 10:36:12 CDT CPT-OV Office Visit 15:34:31 CDT CPT-97862 Abx/Therapy Injection 08:21:15 PATTERNMAKER PRESSURE CAST CPT-J1885 Toradol 60 mg (Ketorolac) 10:46:35 PATTERNMA[employer] PRESSURE CAST CPT-OV Office Visit 19:51:16 [employer]TERN[employer] PRESSURE CAST CPT-32929 Spec Collection and Handling Fee 14:34:18 PATTERNMA[employer] PRESSURE CAST CPT-PV Prev. Care Visit 14:19:18 PATTERNMAK[employer] PRESSURE CAST CPT-97640 Postop F/U Visit 14:47:51 PATTERNMAK[employer] PRESSURE CAST CPT-81344 Postop F/U Visit 15:15:14 PATTERNMA[employer] PRESSURE CAST CPT-64814 Postop F/U Visit 14:41:43 CDT CPT-68914 Postop F/U Visit 15:47:46 CDT CPT-OV Office Visit 15:27:23 CDT CPT-OV Office Visit 17:20:34 CDT CPT-17458 Abx/Therapy Injection 15:05:57 CDT CPT-J1100 Decadron 8mg (Dexamethasone) 14:44:57 CDT CPT-J1040 Depo Medrol 80 mg (Methyl Prednisolone Acetate) 14:44: 57 CDT CPT-JTINJ Joint Injection 10:17:37 CDT CPT-60876 Administration 2+ single or combination vaccines inc oral 13:01:46 PATTERNMAK[employer] PRESSURE CAST CPT-74939 Administration single or combination vaccine inc oral 13 :01:46 PATTERNMAKER PRESSURE CAST CPT-14400 Pneumovax 13:01:46 PATTERNMAK[employer] PRESSURE CAST CPT-62401 Influenza split virus > age 3 13:01:46 PATTERNMAK[employer] PRESSURE CAST CPT-45746 Administration single or combination vaccine inc oral 08 :56:49 CDT CPT-81485 Tdap 08:56:49 CDT
--- OUTSIDE RECORDS SUMMARY | 2017-03-21 22:13 | XMS REPORT | Clinical Summary ---
Author Author Admin, E Organization [facility] Address Unknown Phone Unavailable Allergies, Adverse Reactions, Alerts Allergy Name Reaction Description Start Date Severity Status Provider VALENTIN Critical Active Rodrigo Montemayorl [employer]ISH[employer]ENTICE CHLORHEXIDINE GLUCONATE tongue and gums swollen Critical Active Hoa Kabaford RMA NORFLEX Rash Critical Active Silvestrellina Frazell FINISHER TA[employer]OR APPRENTICE TRAZODONE HCL sees things Critical Active Dewayne [...] myocardial infarction Pelvic pain 789.09 Active Yolande iLndsay MD PhD Abdominal pain, other specified site; multiple sites Edema 782.3 Active Yolande Lindsay MD PhD Edema Rash 782.1 Active Yolande Lindsay MD PhD Rash and other nonspecific skin eruption Back pain, lumbar 724.2 Active Gab Padron MD Lumbago Cough 786.2 Active Jillina Tyrel [employer]ENTICE Cough 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 Jillina Frazellilian FINISHER TA[employer]OR APPRENTICE 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 Anemia 285.9 Active Gab Padron MD Anemia, unspecified Conjunctivitis 372.30 Active Jillnacho Sarah APRN Conjunctivitis, unspecified Sinusitis 473.9 Active Silvestrellina Frazell FINISH[employer] TA[employer] APPRENTICE Unspecified sinusitis (chronic) Nonspecific syndrome suggestive of viral illness 079.99 Active Jillina Frazell FINISHER TA[employer]OR APPRENTICE Unspecified viral infection Laryngitis 464.00 Active Jillina Frazell FINISH[employer] TA[employer]OR APPRENTICE Acute laryngitis without mention of obstruction Abdominal [...] Flank pain, left 789.09 Active Jillina Frazell FINISH[employer] TA[employer]OR APPRENTICE Abdominal pain, other specified site; multiple sites Abdominal pain, generalized 789.07 Active Jillina Farshadzell FINISHER TAILOR APPRENTICE Abdominal pain, generalized Back pain, thoracic region, left 724.1 Active Jillina Frazell FINISHER TAILOR APPRENTICE Pain in thoracic spine Abdominal pain, left lower quadrant 789.04 Active Gab Padorn MD Abdominal pain, left lower quadrant Slowing [...] Yolande Lindsay MD PhD Pallor ICD-782.61 Inactive Yoalnde Lindsay MD PhD 2013 Flank pain, left [...] every 6 hrs prn pain TRAMADOL HCL 01975148866 Active Gab Padron MD Active PREDNISONE 20 MG TAB 2 tabs daily for 3 days, 1 tab daily for 3 days, 1/2 tab daily for 2 days PREDNISONE 33200992230 No Longer Active Gab Padron MD Active ZOFRAN ODT 4 MG TBDP 1 po q6hr PRN Nausea ONDANSETRON 53809228608 Active Gab Padron MD Active IBUPROFEN 600 MG TAB 1 tablet by mouth every 6 hours for 7 days, then 1 tablet every 6 hours as needed. Take with food IBUPROFEN 64869934443 Active Jillina Frazell FINISH[employer] TA[employer]OR APPRENTICE Active BACTRIM DS 800-160 MG TAB 1 tab by mouth twice daily TRIMETHOPRIM-SULFAMETHOXAZOLE 53695503892 No Longer Active Gab Padron MD Active ADVAIR DISKUS 250-50 MCG/DOSE AEPB 1 puff BID FLUTICASONE- SALMETEROL 70472332751 Active Silvestrellnacho Sarah APRN Active LEVOTHYROXINE SODIUM 75 MCG TABS Take 1 tab daily LEVOTHYROXINE SODIUM 34218107528 No Longer Active Mariana Medellinelise [facility] Active SYNTHROID 88 MCG ORAL TABS Take one by mouth daily LEVOTHYROXINE SODIUM 73088583835 Active Gab Padron MD Active CHERATUSSIN AC 100-10 MG/5ML SYRP 1 tsp by mouth every 4 hours as needed for cough GUAIFENESIN-CODEINE 48765981968 No Longer Active Gab Padron MD Active POLYTRIM 74643-1.1 UNIT/ML-% SOLN 1 gtt to affected eye q3h x 7 days POLYMYXIN B-TRIMETHOPRIM 48741810772 No Longer Active Gab Padron MD Active FLUTICASONE PROPIONATE 50 MCG/ACT SUSP 1 to 2 sprays each nostril daily 04/21 FLUTICASONE PROPIONATE 86783787996 No Longer Active Gab Padron MD Active TRILEPTAL 600 MG TABS Take one 1 tablet in Am and 1 tablet at night OXCARBAZEPINE 67515875751 Active Gab Padron MD Active CEFDINIR 300 MG CAPS 1 po BID x 10 days CEFDINIR 47359914356 No Longer Active Rodrigo Sarah APRN Active CEFTIN 500 MG TAB 1 twice a day CEFUROXIME AXETIL 96504378986 No Longer Active Gab Padron MD Active AZITHROMYCIN 250 MG TABS 2 po qd x 1 day, then 1 po qd x 4 days AZITHROMYCIN 67329345011 No Longer Active Rodrigo Sarah APRN Active CLARITIN 10 MG TAB 1 tablet by mouth daily as needed for allergies LORATADINE 23712908935 Active Rodrigo Sarah APRN Active OXYCODONE HCL 5 MG ORAL CAPS 1 TAB PO Q HS OXYCODONE HCL 70908074289 No Longer Active Rodrigo Sarah APRN Active NIASPAN 500 MG ORAL CR-TABS 1 pill nightly x 1 week, then 2 pills nightly x 1 week, then 3 pills nightly x 1 week, then 4 pills nightly NIACIN (ANTIHYPERLIPIDEMIC) 23627148018 No Longer Active Rodrigo Sarah APRN Active NIACIN 500 MG TABS 1 pill by mouth nightly x 1 week, then 2 pills x 1 week, then 3 pills x 1 week, then 4 pills nightly - take after evening meal, with applesauce or an apple NIACIN 74192603904 No Longer Active Yolande Lindsay MD PhD Active FISH OIL 1000 MG CAPS 3 pills daily OMEGA-3 FATTY ACIDS 51234954314 Active Yolande Lindsay MD PhD Active TRIAMCINOLONE ACETONIDE 0.1 % CREA apply bid sparingly to rash TRIAMCINOLONE ACETONIDE 89074532020 Active Yolande Lindsay MD PhD Active FUROSEMIDE 20 MG TAB 1 tablet by mouth daily FUROSEMIDE 31293148259 Active Tisha Lambert APRN Active LISINOPRIL 20 MG ORAL TABS 1 tab by mouth daily LISINOPRIL 07919101419 Active Tisha Fausto FINISHER TAILOR APPRENTICE Active FUROSEMIDE 20 MG TABS 1 pill by mouth daily, for edema FUROSEMIDE 85073478464 No Longer Active Yolande Lindsay MD PhD Active ATORVASTATIN CALCIUM 10 MG TABS 1 pill by mouth daily, for cholesterol 09/06 ATORVASTATIN CALCIUM 28431870590 Active Gab Padron MD Active CALCIUM 600+D PLUS MINERALS 600-400 MG-UNIT ORAL CHEW 1 tab by mouth daily CALCIUM CARBONATE-VIT D-MIN 76167307222 No Longer Active Yolande Lindsay MD PhD Active CYCLOBENZAPRINE HCL 10 MG TABS 1 tablet by mouth three times daily as needed for muscle spasm/pain CYCLOBENZAPRINE HCL 63315084895 Active Yolande Lindsay MD PhD Active ONDANSETRON 4 MG TBDP 1 q4h PRN nausea ONDANSETRON 57767323730 Active Yolande Lindsay MD PhD Active ADULT ASPIRIN EC LOW STRENGTH 81 MG TBEC Take 1 tablet by mouth daily 2014 ASPIRIN 28048621341 No Longer Active Yolande Lindsay MD PhD Active ZOFRAN ODT 4 MG TBDP 1 pill dissolved by mouth every 4 hours if needed for nausea ONDANSETRON 07481250762 No Longer Active Yolande Lindsay MD PhD Active CEFTIN 500 MG TAB 1 twice a day CEFUROXIME AXETIL 46084164372 No Longer Active Yolande Lindsay MD PhD Active ALBUTEROL SULFATE 0.083 % [facility] SOLN one vial per nebulizer every 4-6 hours as needed ALBUTEROL SULFATE 75093333675 No Longer Active Alexis Ordaz MD Active DOXYCYCLINE HYCLATE 100 MG CAP 1 cap by mouth twice daily DOXYCYCLINE HYCLATE 23020041311 No Longer Active Yolande Lindsay MD PhD Active CYCLOBENZAPRINE HCL 10 MG TABS 1/2 - 1 tab by mouth three times daily if needed for spasms/pain CYCLOBENZAPRINE HCL 79384154376 No Longer Active Yolande Lindsay MD PhD Active AZITHROMYCIN 250 MG TABS 2 pills on day 1, then 1 pill daily x 4 days AZITHROMYCIN 30726137264 No Longer Active Yolande Lindsay MD PhD Active XOPENEX 1.25 MG/3ML NEBU 1 neb every 4 hours if needed for cough/congestion LEVALBUTEROL HCL 64684361849 No Longer Active Yolande Lindsay MD PhD Active DOXYCYCLINE HYCLATE 100 MG TAB 1 tab twice a day for 14 days 2013 DOXYCYCLINE HYCLATE 15251916570 No Longer Active Yolande Lindsay MD PhD Active PREVACID 30 MG CPDR Take 1 tablet by mouth daily-PRN LANSOPRAZOLE 88872546724 No Longer Active Yolande Lindsay MD PhD Active PA VITAMIN D-3 2000 UNIT CAPS 1 CAP PO DAILY CHOLECALCIFEROL 70522730422 No Longer Active Yolande Lindsay MD PhD Active CEFDINIR 300 MG CAPS by mouth twice a day CEFDINIR 28636095787 No Longer Active Gab Padron MD Active TOPAMAX 50 MG TABS 1 PO twice daily TOPIRAMATE 95948012545 Active Yolande Lindsay MD PhD Active AZITHROMYCIN 250 MG TABS 2 po qd x 1 day, then 1 po qd x 4 days AZITHROMYCIN 19455468894 No Longer Active Yolande Lindsay MD PhD Active DICLOFENAC SODIUM 75 MG TBEC 1 tablet by q 12 hours PRN headaches DICLOFENAC SODIUM 06057302810 No Longer Active Yolande Lindsay MD PhD Active FLONASE 50 MCG/ACT SUSP 1 spray each nostril am and hs FLUTICASONE PROPIONATE 63826098760 No Longer Active Todd Callaway MD Active ANUSOL-HC 25 MG SUPPOSITORY 1 rectally twice a day as needed for hemorrhoids HYDROCORTISONE JAYDEN (RECTAL) 29291695273 No Longer Active Yolande Lindsay MD PhD Active ANUSOL-HC 25 MG SUPPOSITORY 1 suppository rectally each evening as needed for anal fissure HYDROCORTISONE JAYDEN (RECTAL) 42081077418 No Longer Active Bozena Coleman EDELMIRAFeliciano Active VALIUM 5 MG TAB 1 po 30 minutes prior to your MRI DIAZEPAM 93756012855 No Longer Active LONNIE Iglesias Active METHOCARBAMOL 750 MG TABS 1 PO QID PRN METHOCARBAMOL 77281427756 No Longer Active Daphne Wetzel FINISHER TAILOR APPRENTICE Active NITROSTAT 0.4 MG SUBL as directed NITROGLYCERIN 74891162848 No Longer Active Rodrigo Sarah FINISHER TAILOR APPRENTICE Active ROBAXIN-750 750 MG TABS 2 four times a day for 3 days as needed for muscle spasm, then 1 four times a day as needed METHOCARBAMOL 49344169592 No Longer Active Rodrigo Sarah APRN Active HYDROCODONE-ACETAMINOPHEN 5-325 MG TABS 1 q 4-6 hrs prn HYDROCODONE-ACETAMINOPHEN 09724326311 No Longer Active Jillnacho Sarah APRN Active VERAPAMIL HCL CR 180 MG CR-TABS TAKE 1 TAB DAILY VERAPAMIL HCL 42240128891 No Longer Active Yolande Lindsay MD PhD Active BACTRIM DS 800-160 MG TAB 1 tab by mouth twice daily TRIMETHOPRIM-SULFAMETHOXAZOLE 38407564814 No Longer Active Yolande Lindsay MD PhD Active NEXIUM 40 MG PACK 1 by mouth daily ESOMEPRAZOLE MAGNESIUM 43843346187 No Longer Active Des Hines MD Active EPIPEN 2-CHARLETTE 0.3 MG/0.3ML OAMRI as need for allergic reaction EPINEPHRINE 26823260361 Active Yolande Lindsay MD PhD Active NEXIUM 40 MG CPDR 1 PO Q D DAY ESOMEPRAZOLE MAGNESIUM 87731096820 No Longer Active Sadia Perry RN Active NEXIUM 40 MG PACK 1 by mouth daily NEXIUM 40 MG PACK ESOMEPRAZOLE MAGNESIUM Inactive VERAPAMIL HCL CR 180 MG CR-TABS TAKE 1 TAB DAILY VERAPAMIL HCL CR 180 MG CR-TABS VERAPAMIL HCL Inactive HYDROCODONE-ACETAMINOPHEN 5-325 MG TABS 1 q 4-6 hrs prn HYDROCODONE-ACETAMINOPHEN 5-325 MG TABS 493387 HYDROCODONE-ACETAMINOPHEN Inactive ROBAXIN-750 750 MG TABS 2 four times a day for 3 days as needed for muscle spasm, then 1 four times a day as needed ROBAXIN-750 750 MG TABS 129775 METHOCARBAMOL Inactive NITROSTAT 0.4 MG SUBL as directed NITROSTAT 0.4 MG SUBL 753353 NITROGLYCERIN Inactive METHOCARBAMOL 750 MG TABS 1 PO QID PRN METHOCARBAMOL 750 MG TABS 620475 METHOCARBAMOL Inactive VALIUM 5 MG TAB 1 po 30 minutes prior to your MRI VALIUM 5 MG TAB 779288 DIAZEPAM Inactive ANUSOL-HC 25 MG SUPPOSITORY 1 suppository rectally each evening as needed for anal fissure ANUSOL-HC 25 MG SUPPOSITORY 1362380 HYDROCORTISONE JAYDEN (RECTAL) Inactive ANUSOL-HC 25 MG SUPPOSITORY 1 rectally twice a day as needed for hemorrhoids ANUSOL-HC 25 MG SUPPOSITORY 0724859 HYDROCORTISONE JAYDEN (RECTAL) Inactive FLONASE 50 MCG/ACT SUSP 1 spray each nostril am and hs FLONASE 50 MCG/ACT SUSP 1186613 FLUTICASONE PROPIONATE Inactive DICLOFENAC SODIUM 75 MG TBEC 1 tablet by q 12 hours PRN headaches DICLOFENAC SODIUM 75 MG TBEC 589719 DICLOFENAC SODIUM Inactive PA VITAMIN D-3 2000 UNIT CAPS 1 CAP PO DAILY PA VITAMIN D-3 2000 UNIT CAPS CHOLECALCIFEROL Inactive PREVACID 30 MG CPDR Take 1 tablet by mouth daily-PRN PREVACID 30 MG CPDR 666954 LANSOPRAZOLE Inactive DOXYCYCLINE HYCLATE 100 MG TAB 1 tab twice a day for 14 days 2013 DOXYCYCLINE HYCLATE 100 MG TAB 4835318 DOXYCYCLINE HYCLATE Inactive XOPENEX 1.25 MG/3ML NEBU 1 neb every 4 hours if needed for cough/congestion XOPENEX 1.25 MG/3ML NEBU 425452 LEVALBUTEROL HCL Inactive CYCLOBENZAPRINE HCL 10 MG TABS 1/2 - 1 tab by mouth three times daily if needed for spasms/pain CYCLOBENZAPRINE HCL 10 MG TABS 936605 CYCLOBENZAPRINE HCL Inactive ALBUTEROL SULFATE 0.083 % NEBU SOLN one vial per nebulizer every 4-6 hours as needed ALBUTEROL SULFATE 0.083 % NEBU SOLN 635640 ALBUTEROL SULFATE Inactive CEFTIN 500 MG TAB 1 twice a day CEFTIN 500 MG TAB 038875 CEFUROXIME AXETIL Inactive ZOFRAN ODT 4 MG TBDP 1 pill dissolved by mouth every 4 hours if needed for nausea ZOFRAN ODT 4 MG TBDP 161856 ONDANSETRON Inactive ADULT ASPIRIN EC LOW STRENGTH 81 MG TBEC Take 1 tablet by mouth daily 2014 ADULT ASPIRIN EC LOW STRENGTH 81 MG TBEC 034257 ASPIRIN Inactive CALCIUM 600+D PLUS MINERALS 600-400 [...] or an apple NIACIN 500 MG TABS 896345 NIACIN Inactive NIASPAN 500 MG ORAL CR-TABS 1 pill nightly x 1 week, then 2 pills nightly x 1 week, then 3 pills nightly x 1 week, then 4 pills nightly NIASPAN 500 MG ORAL CR-TABS NIACIN (ANTIHYPERLIPIDEMIC) Inactive OXYCODONE HCL 5 MG ORAL CAPS 1 TAB PO Q HS OXYCODONE HCL 5 MG ORAL CAPS 6882665 OXYCODONE HCL Inactive FLUTICASONE PROPIONATE 50 MCG/ACT SUSP 1 to 2 sprays each nostril daily 04/21 FLUTICASONE PROPIONATE 50 MCG/ACT SUSP 4337024 FLUTICASONE PROPIONATE Inactive POLYTRIM 64615-1.1 UNIT/ML-% SOLN 1 gtt to affected eye q3h x 7 days POLYTRIM 27227-8.1 UNIT/ML-% SOLN 717603 POLYMYXIN B- TRIMETHOPRIM Inactive CHERATUSSIN AC 100-10 MG/5ML SYRP 1 tsp by mouth every 4 hours as needed for cough CHERATUSSIN AC 100-10 MG/5ML SYRP 900648 GUAIFENESIN-CODEINE Inactive LEVOTHYROXINE SODIUM 75 MCG TABS Take 1 tab daily LEVOTHYROXINE SODIUM 75 MCG TABS 698113 LEVOTHYROXINE SODIUM Inactive BACTRIM DS 800-160 MG TAB 1 tab by mouth twice daily BACTRIM DS 800-160 MG TAB 312129 TRIMETHOPRIM-SULFAMETHOXAZOLE Inactive AZITHROMYCIN 250 MG TABS 2 po qd x 1 day, then 1 po qd x 4 days AZITHROMYCIN 250 MG TABS 8584381 AZITHROMYCIN Inactive CEFDINIR 300 MG CAPS by mouth twice a day CEFDINIR 300 MG CAPS 444925 CEFDINIR Inactive AZITHROMYCIN 250 MG TABS 2 pills on day 1, then 1 pill daily x 4 days AZITHROMYCIN 250 MG TABS 6979067 AZITHROMYCIN Inactive DOXYCYCLINE HYCLATE 100 MG CAP 1 cap by mouth twice daily DOXYCYCLINE HYCLATE 100 MG CAP 0394385 DOXYCYCLINE HYCLATE Inactive FUROSEMIDE 20 MG TABS 1 pill by mouth daily, for edema FUROSEMIDE 20 MG TABS 715564 FUROSEMIDE Inactive AZITHROMYCIN 250 MG TABS 2 po qd x 1 day, then 1 po qd x 4 days AZITHROMYCIN 250 MG TABS 6158073 AZITHROMYCIN Inactive CEFTIN 500 MG TAB 1 twice a day CEFTIN 500 MG TAB 641114 CEFUROXIME AXETIL Inactive CEFDINIR 300 MG CAPS 1 po BID x 10 days CEFDINIR 300 MG CAPS 022604 CEFDINIR Inactive BACTRIM DS 800-160 MG TAB 1 tab by mouth twice daily BACTRIM DS 800-160 MG TAB 058328 TRIMETHOPRIM-SULFAMETHOXAZOLE Inactive PREDNISONE 20 MG TAB 2 tabs daily for 3 days, 1 tab daily for 3 days, 1/2 tab daily for 2 days PREDNISONE 20 MG TAB 435369 PREDNISONE Inactive Immunizations Vaccine Administration Date Value Standard Description Seasonal influenza vaccine, injectable, containing preservative, for > 3 years old (Afluria, FluLaval, Fluzone, Fluvirin, Fluarix, Agriflu(>=18 yo)) Fluzone (>3 yrs.) [UHV083] Influenza, seasonal, injectable influenza immunization (Flu Vax) has been administered Influenza - Unspecified Formulation [CVX88] influenza virus vaccine, unspecified formulation Seasonal influenza vaccine, injectable, containing preservative, for > 3 years old (Afluria, FluLaval, Fluzone, Fluvirin, Fluarix, Agriflu(>=18 yo)) Fluzone (>3 yrs.) [ZNI273] Influenza, seasonal, injectable pneumococcal immunization administered Pneumovax 23 [CVX33] pneumococcal polysaccharide vaccine, 23 valent dT (Diphtheria and Tetanus) booster given given Td(adult) unspecified formulation Boostrix (Tetanus toxoid, reduced diphtheria toxoid and acellular pertussis vaccine, adsorbed), booster Boostrix [TNE608] tetanus toxoid, reduced diphtheria toxoid, and acellular [...] Panel - Chemistry sodium, serum 142 mmol/L 857-678 7082/06/30 potassium, serum 4.4 mmol/L 3.5-5.2 chloride, serum 108 mmol/L 98-107 carbon dioxide, venous blood 25.1 mmol/L 21.0-32.0 blood glucose 82 mg/dL 65-110 calcium, serum 9.1 mg/dL 8.5-10.1 urea nitrogen, blood 18 mg/dL 7-18 creatinine, serum 1.31 mg/dL 0.55-1.30 Lab Report: Lipid Panel, HEPATIC PANEL - Chemistry cholesterol, serum 166 mg/dL 252-443 3253/12/06 triglyceride, serum, fasting 86 mg/dL 30-200 HDL [...] dipstick Negative Negative sodium, serum 142 mmol/L 003-543 9044/07/18 carbon dioxide, venous blood 27.8 mmol/L 21.0-32.0 [...] negative Encounters Code Encounter Date Provider Facility CPT-55506 Level 3 Est. Patient 15:20:50 CDT Jared Og MD [facility] CPT-30801 Level 3 Est. Patient 17:43:55 [employer] Gab Padron MD [facility] CPT-66652 Level 3 Est. Patient 17:07:49 [employer] Jared Og MD [facility] CPT-26397 Level 4 Est. Patient 19:55:18 [employer] Jared Og MD [facility] CPT-63387 Level 3 Est. Patient 20:13:34 [employer] Jared Og MD [facility] CPT-13572 Level 4 Est. Patient 16:31:27 CDT Gab Padron MD [facility] CPT-72001 Level 2 Est. Patient 12:23:38 CDT Jared Og MD [facility] CPT-95264 Level 3 Est. Patient 11:01:51 CDT Gab Padron MD [facility] CPT-32012 Level 3 Est. Patient 15:27:02 CDT Jared Og MD [facility] CPT-08468 Level 4 Est. Patient 09:25:27 CDT Gab Padron MD [facility]-44189 Level 3 Est. Patient 10:29:41 CDT Rodrigo Sarah [facility]-42890 Level 4 Est. Patient 17:51:05 CDT Gab Padron MD [facility]-06336 Level 3 Est. Patient 14:18:08 CDT Gab Padron MD [facility]-88417 Level 4 Est. Patient 10:18:54 CDT Gab Padron MD [facility]-41472 Level 3 Est. Patient 11:30:07 CDT Rodrigo Sarah [facility]-57187 Level 4 Est. Patient 21:02:30 [employer] Gab Padron MD [facility]-01698 Level 3 Est. Patient 11:02:19 [employer] Gab Padron MD [facility] CPT-50888 Level 4 Est. Patient 22:24:31 [employer] Gab Padron MD [facility]-62650 Level 3 Est. Patient 18:33:46 [employer] Gab Padron MD [facility]-91561 Level 3 Est. Patient 16:19:11 CDT Yolande Lindsay MD [facility]-66338 Level 3 Est. Patient 18:59:14 CDT Yolande Lindsay MD [facility]-68505 Level 4 Est. Patient 21:29:26 CDT Yolande Lindsay MD [facility]-87778 Level 3 Est. Patient 07:37:45 CDT Yolande Lindsay MD [facility]-11378 Level 3 Est. Patient 17:03:46 CDT Yolande Lindsay MD [facility]-86785 Level 4 Est. Patient 20:02:13 [employer] Yolande Lindsay MD [facility] CPT-23762 Level 3 Est. Patient 16:02:07 [employer] Alexis Ordaz MD [facility]-64638 Level 3 Est. Patient 12:41:24 [employer] Yolande Lindsay MD [facility]-31944 Level 3 Est. Patient 15:41:20 [employer] Yolande Lindsay MD [facility]-09199 Level 3 Est. Patient 13:20:02 [employer] Yolande Lindsay MD [facility]-57802 Level 3 Est. Patient 15:00:38 CDT Jared Og MD [facility]-02767 Level 3 Est. Patient 10:22:32 CDT Yolande Lindsay MD [facility] CPT-07860 Level 3 Est. Patient 17:12:58 CDT Yolande Lindsay MD [facility] CPT-07029 Level 4 Est. Patient 13:30:58 CDT Yolande Lindsay MD [facility]-51702 Level 4 New Patient 09:02:42 CDT Jared Og MD [facility]-61001 Level 3 Est. Patient 08:19:07 CDT Yolande Lindsay MD [facility]-79201 Level 3 Est. Patient 12:00:13 [employer] Gab Padron MD [facility]-49888 Level 3 Est. Patient 16:15:23 [employer] Yolande Lindsay MD [facility]-48940 Level 2 Est. Patient 19:47:15 CDT Yolande Lindsay MD [facility]-03647 Level 3 Est. Patient 21:38:31 CDT Yolande Lindsay MD [facility]-36280 Level 3 Est. Patient 10:25:12 CDT Adiel PERAZA [facility]-00785 Level 4 Est. Patient 10:51:58 CDT Yolande Lindsay MD [facility]-83906 Level 3 Est. Patient 14:04:55 [employer] Rodrigo Sarah [facility]-63460 Level 3 Est. Patient 10:46:35 [employer] Rodrigo Sarah [facility] CPT-63169 Level 3 Est. Patient 14:24:37 [employer] Yolande Lindsay MD [facility]-69151 Level 3 Est. Patient 17:41:58 [employer] Yolande Lindsay MD [facility]-70871 Level 2 Est. Patient 22:01:41 [employer] Rodrigo Sarah [facility] CPT-37171 Level 2 Est. Patient 22:01:11 [employer] Rodrigo Sarah [facility] CPT-40752 Level 3 Est. Patient 10:12:29 [employer] Rodrigo Sarah [facility] CPT-52117 Level 3 Est. Patient 11:05:44 CDT Alexis Ordaz MD [facility]-28251 Level 3 Est. Patient 14:57:20 CDT Yolande Lindsay MD [facility]-26618 Level 3 Est. Patient 14:40:57 CDT Yolande Lindsay MD [facility]-23751 Level 3 Est. Patient 20:55:40 CDT Yolande Lindsay MD [facility]-00641 Level 3 Est. Patient 12:42:38 [employer] Yolande Lindsay MD [facility]68518 Level 3 Est. Patient 11:54:49 [employer] Des Hines MD [facility] CPT-48634 Level 3 Est. Patient 17:06:38 CDT Dewayne Pineda PA [facility] Procedures Code Procedure Name Date Entry Date Standard Description CPT-51468 Hip, complete, 2-3 views - XRAY USE ONLY 17:19:04 [employer] CPT-38637 Venipuncture Draw Fee 08:37:59 [employer] CPT-24386 Liver Profile - LAB USE ONLY 08:37:59 [employer] CPT-00388 Lipid - LAB USE ONLY 08:37:58 [employer] CPT-41055 First Vx - Ix admin via ID IM or jet injects without counseling by physician 11:52:31 CDT CPT-00731 Fluzone Preservative Free Intramuscular Suspension 11:52 :31 CDT CPT-68564 Foot, left, comp min 3V - XRAY USE ONLY 09:24:54 CDT CPT-39699 Abd single AP View - XRAY USE ONLY 11:16:17 CDT CPT-87522 T spine AP/ Lat - XRAY USE ONLY 09:34:21 CDT CPT-86835 Chest 2V Frontal and Lat - XRAY USE ONLY 10:48:51 CDT CPT-11610 LS spine comp w obliq 13:28:00 [employer] CPT-J1040 Depo Medrol 80 mg (Methyl Prednisolone Acetate) 10:51: 28 [employer] CPT-J1100 Decadron 8mg (Dexamethasone) 10:51:28 [employer] CPT-96868 Abx/Therapy Injection 10:51:28 [employer] CPT-J1100 Decadron 8mg (Dexamethasone) 21:02:30 [employer] CPT-J1040 Depo Medrol 80 mg (Methyl Prednisolone Acetate) 21:02: 30 [employer] [id number] Event Monitor - MC Transmission 09:12:32 CDT 08/06 [id number] Event Monitor - MC review and interp 09:12:32 CDT [id number] Event Monitor - MC recording 09:12:32 CDT CPT-07473 EKG Trac and Interp 16:50:22 CDT CPT-J1030 Depo Medrol 40 mg (Methyl Prednisolone Acetate) 17:05: 54 CDT CPT-J1100 Decadron 4mg (Dexamethasone) 17:05:54 CDT CPT-12300 Abx/Therapy Injection 17:05:54 CDT CPT-J1100 Decadron 4mg (Dexamethasone) 16:55:28 CDT CPT-J1030 Depo Medrol 40 mg (Methyl Prednisolone Acetate) 16:55: 28 CDT CPT-04775 Ankle Complete - Min 3V 15:58:50 CDT CPT-29207 Knee 3V 15:58:50 CDT CPT-68544 Hip comp min 2V 15:58:50 CDT CPT-J2270 Morphine Sulfate 10 mg 14:25:44 [employer] CPT-J2550 Phenergan 12.5 mg (Promethazine) 14:25:44 [employer] CPT-77306 Abx/Therapy Injection 14:25:44 [employer] CPT-J2550 Phenergan 12.5 mg (Promethazine) 14:08:03 [employer] CPT-J2270 Morphine Sulfate 10 mg 14:08:03 [employer] CPT-91847 Bladder Scan 15:00:38 CDT CPT-TCMM Transitional Care Mgmt-Moderate 09:52:22 CDT CPT-J1030 Depo Medrol 40 mg (Methyl Prednisolone Acetate) 10:55: 18 CDT CPT-J1100 Decadron 4mg (Dexamethasone) 10:55:18 CDT CPT-98277 Abx/Therapy Injection 10:55:18 CDT CPT-J1030 Depo Medrol 40 mg (Methyl Prednisolone Acetate) 10:22: 32 CDT CPT-J1100 Decadron 4mg (Dexamethasone) 10:22:32 CDT CPT-77483 Postop F/U Visit 14:37:13 CDT CPT-89689 Ankle Complete - Min 3V 17:11:58 CDT CPT-64781 Foot comp min 3V 17:11:58 CDT CPT-83042 Bladder Scan 09:56:58 CDT CPT-17858 Postop F/U Visit 09:56:58 CDT CPT-22660 Cystoscopy 09:02:42 CDT CPT-98731 Bladder Scan 09:02:42 CDT CPT-68742 Abd single AP View 16:00:35 CDT CPT-75786 Administration single or combination vaccine inc oral 10 :15:43 CDT CPT-25804 Influenza split virus > age 3 10:15:43 CDT CPT-45897 Nail Avulsion 09:24:57 CDT CPT-OV Office Visit 11:15:41 CDT CPT-17418 Abx/Therapy Injection 10:51:30 CDT CPT-J3301 Kenalog 40 mg (Triamcinolone Acetonide) 10:25:12 CDT CPT-J1100 Decadron 4mg (Dexamethasone) 10:25:12 CDT CPT-55050 Anoscopy diagnostic 10:36:12 CDT CPT-OV Office Visit 15:34:31 CDT CPT-10994 Abx/Therapy Injection 08:21:15 HOGSHEAD PACKER CPT-J1885 Toradol 60 mg (Ketorolac) 10:46:35 HOGSHEAD PACKER CPT-OV Office Visit 19:51:16 HOGSHEAD PACKER CPT-77130 Spec Collection and Handling Fee 14:34:18 HOGSHEAD PACKER CPT-PV Prev. Care Visit 14:19:18 HOGSHEAD PACKER CPT-21047 Postop F/U Visit 14:47:51 HOGSHEAD PACKER CPT-10481 Postop F/U Visit 15:15:14 HOGSHEAD P[employer]ER CPT-58954 Postop F/U Visit 14:41:43 CDT CPT-37221 Postop F/U Visit 15:47:46 CDT CPT-OV Office Visit 15:27:23 CDT CPT-OV Office Visit 17:20:34 CDT CPT-37057 Abx/Therapy Injection 15:05:57 CDT CPT-J1100 Decadron 8mg (Dexamethasone) 14:44:57 CDT CPT-J1040 Depo Medrol 80 mg (Methyl Prednisolone Acetate) 14:44: 57 CDT CPT-JTINJ Joint Injection 10:17:37 CDT CPT-60478 Administration 2+ single or combination vaccines inc oral 13:01:46 HOGSHEAD PACKER CPT-40746 Administration single or combination vaccine inc oral 13 :01:46 HOGSHEAD PACKER CPT-94929 Pneumovax 13:01:46 HOGSHEAD PACKER CPT-93889 Influenza split virus > age 3 13:01:46 HOGSHEAD PACKER CPT-57094 Administration single or combination vaccine inc oral 08 :56:49 CDT CPT-80213 Tdap 08:56:49 CDT
--- OUTSIDE RECORDS SUMMARY | 2017-03-21 22:15 | XMS REPORT | Clinical Summary ---
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 TRAZODONE HCL sees things Critical Active Dewayne [...] pill by mouth daily, for edema FUROSEMIDE 30143257089 Active Yolande Lindsay MD PhD Active FISH OIL 1000 MG CAPS 1 pill daily x 1 week, then 2 pills daily x 1 week, then 3 pills daily x 1 week, then 4 pills daily OMEGA-3 FATTY ACIDS 16816672074 Active Yolande Lindsay MD PhD Active NIACIN 500 MG TABS 1 pill by mouth nightly x 1 week, then 2 pills x 1 week, then 3 pills x 1 week, then 4 pills nightly - take after evening meal, with applesauce or an apple NIACIN 66444770942 Active Yolande Lindsay MD PhD Active ATORVASTATIN CALCIUM 10 MG TABS 1 pill by mouth daily, for cholesterol 09/06 ATORVASTATIN CALCIUM 02070553412 Active Yolande Lindsay MD PhD Active CALCIUM 600+D PLUS MINERALS 600-400 MG-UNIT ORAL CHEW 1 tab by mouth daily CALCIUM CARBONATE-VIT D-MIN 47402479228 No Longer Active Yolande Lindsay MD PhD Active CYCLOBENZAPRINE HCL 10 MG TABS 1 tablet by mouth three times daily as needed for muscle spasm/pain CYCLOBENZAPRINE HCL 66582631221 Active Yolande Lindsay MD PhD Active ONDANSETRON 4 MG TBDP 1 q4h PRN nausea ONDANSETRON 04084509032 Active Yolande Lindsay MD PhD Active ADULT ASPIRIN EC LOW STRENGTH 81 MG TBEC Take 1 tablet by mouth daily 2014 ASPIRIN 78784953028 No Longer Active Yolande Lindsay MD PhD Active ZOFRAN ODT 4 MG TBDP 1 pill dissolved by mouth every 4 hours if needed for nausea ONDANSETRON 28140392615 No Longer Active Yolande Lindsay MD PhD Active CEFTIN 500 MG TAB 1 twice a day CEFUROXIME AXETIL 01401375636 No Longer Active Yolande Lindsay MD PhD Active ALBUTEROL SULFATE 0.083 % NEBU SOLN one vial per nebulizer every 4-6 hours as needed ALBUTEROL SULFATE 35712547275 No Longer Active Alexis rOdaz MD Active DOXYCYCLINE HYCLATE 100 MG CAP 1 cap by mouth twice daily DOXYCYCLINE HYCLATE 07893038705 No Longer Active Yolande Lindsay MD PhD Active CYCLOBENZAPRINE HCL 10 MG TABS 1/2 - 1 tab by mouth three times daily if needed for spasms/pain CYCLOBENZAPRINE HCL 49546755760 No Longer Active Yolande Lindsay MD PhD Active TRILEPTAL 600 MG TABS Take one 1/2 tablet in Am and 1 tablet at night OXCARBAZEPINE 71870662874 Active Yolande Lindsay MD PhD Active AZITHROMYCIN 250 MG TABS 2 pills on day 1, then 1 pill daily x 4 days AZITHROMYCIN 53766385732 No Longer Active Yolande Lindsay MD PhD Active XOPENEX 1.25 MG/3ML NEBU 1 neb every 4 hours if needed for cough/congestion LEVALBUTEROL HCL 48269317009 No Longer Active Yolande Lindsay MD PhD Active DOXYCYCLINE HYCLATE 100 MG TAB 1 tab twice a day for 14 days 2013 DOXYCYCLINE HYCLATE 70736196622 No Longer Active Yolande Lindsay MD PhD Active LEVOTHYROXINE SODIUM 75 MCG TABS Take 1 tab daily LEVOTHYROXINE SODIUM 92911022856 Active Yolande Lindsay MD PhD Active PREVACID 30 MG CPDR Take 1 tablet by mouth daily-PRN LANSOPRAZOLE 30539451884 No Longer Active Yolande Lindsay MD PhD Active PA VITAMIN D-3 2000 UNIT CAPS 1 CAP PO DAILY CHOLECALCIFEROL 67221749731 No Longer Active Yolande Lindsay MD PhD Active CEFDINIR 300 MG CAPS by mouth twice a day CEFDINIR 54727936529 No Longer Active Gab Padron MD Active TOPAMAX 50 MG TABS 1 PO twice daily TOPIRAMATE 33341451000 Active Yolande Lindsay MD PhD Active AZITHROMYCIN 250 MG TABS 2 po qd x 1 day, then 1 po qd x 4 days AZITHROMYCIN 25264398226 No Longer Active Yolande Lindsay MD PhD Active DICLOFENAC SODIUM 75 MG TBEC 1 tablet by q 12 hours PRN headaches DICLOFENAC SODIUM 64031203469 No Longer Active Yolande Lindsay MD PhD Active FLONASE 50 MCG/ACT SUSP 1 spray each nostril am and hs FLUTICASONE PROPIONATE 02674094346 No Longer Active Todd Callaway MD Active ANUSOL-HC 25 MG SUPPOSITORY 1 rectally twice a day as needed for hemorrhoids HYDROCORTISONE JAYDEN (RECTAL) 31217278189 No Longer Active Yolande Lindsay MD PhD Active ANUSOL-HC 25 MG SUPPOSITORY 1 suppository rectally each evening as needed for anal fissure HYDROCORTISONE JAYDEN (RECTAL) 18976251247 No Longer Active LONNIE Iglesias Active VALIUM 5 MG TAB 1 po 30 minutes prior to your MRI DIAZEPAM 53611899292 No Longer Active LONNIE Iglesias Active METHOCARBAMOL 750 MG TABS 1 PO QID PRN METHOCARBAMOL 76568650792 No Longer Active Daphne Wetzel APRN Active NITROSTAT 0.4 MG SUBL as directed NITROGLYCERIN 42315637478 No Longer Active Rodrigo Sarah APRN Active ROBAXIN-750 750 MG TABS 2 four times a day for 3 days as needed for muscle spasm, then 1 four times a day as needed METHOCARBAMOL 93188495985 No Longer Active Rodrigo Sarah APRN Active HYDROCODONE-ACETAMINOPHEN 5-325 MG TABS 1 q 4-6 hrs prn HYDROCODONE-ACETAMINOPHEN 02471858749 No Longer Active Rodrigo Sarah APRN Active VERAPAMIL HCL CR 180 MG CR-TABS TAKE 1 TAB DAILY VERAPAMIL HCL 00498244965 No Longer Active Yolande Lindsay MD PhD Active BACTRIM DS 800-160 MG TAB 1 tab by mouth twice daily TRIMETHOPRIM-SULFAMETHOXAZOLE 29971621661 No Longer Active Yolande Lindsay MD PhD Active NEXIUM 40 MG PACK 1 by mouth daily ESOMEPRAZOLE MAGNESIUM 45442404338 No Longer Active Des Hines MD Active EPIPEN 2-CHARLETTE 0.3 MG/0.3ML OMARI as need for allergic reaction EPINEPHRINE 00458769402 Active Yolande Lindsay MD PhD Active LISINOPRIL 10 MG TABS 1 PO Q D FOR BP LISINOPRIL 30207206524 Active Yolande Lindsay MD PhD Active NEXIUM 40 MG CPDR 1 PO Q D DAY ESOMEPRAZOLE MAGNESIUM 20020465587 No Longer Active Sadia Perry RN Active NEXIUM 40 MG PACK 1 by mouth daily NEXIUM 40 MG PACK ESOMEPRAZOLE MAGNESIUM Inactive VERAPAMIL HCL CR 180 MG CR-TABS TAKE 1 TAB DAILY VERAPAMIL HCL CR 180 MG CR-TABS VERAPAMIL HCL Inactive HYDROCODONE-ACETAMINOPHEN 5-325 MG TABS 1 q 4-6 hrs prn HYDROCODONE-ACETAMINOPHEN 5-325 MG TABS 207418 HYDROCODONE-ACETAMINOPHEN Inactive ROBAXIN-750 750 MG TABS 2 four times a day for 3 days as needed for muscle spasm, then 1 four times a day as needed ROBAXIN-750 750 MG TABS 377670 METHOCARBAMOL Inactive NITROSTAT 0.4 MG SUBL as directed NITROSTAT 0.4 MG SUBL NITROGLYCERIN Inactive METHOCARBAMOL 750 MG TABS 1 PO QID PRN METHOCARBAMOL 750 MG TABS 026843 METHOCARBAMOL Inactive VALIUM 5 MG TAB 1 po 30 minutes prior to your MRI VALIUM 5 MG TAB 577495 DIAZEPAM Inactive ANUSOL-HC 25 MG SUPPOSITORY 1 suppository rectally each evening as needed for anal fissure ANUSOL-HC 25 MG SUPPOSITORY 2142902 HYDROCORTISONE JAYDEN (RECTAL) Inactive ANUSOL-HC 25 MG SUPPOSITORY 1 rectally twice a day as needed for hemorrhoids ANUSOL-HC 25 MG SUPPOSITORY 1919507 HYDROCORTISONE JAYDEN (RECTAL) Inactive FLONASE 50 MCG/ACT SUSP 1 spray each nostril am and hs FLONASE 50 MCG/ACT SUSP 949492 FLUTICASONE PROPIONATE Inactive DICLOFENAC SODIUM 75 MG TBEC 1 tablet by q 12 hours PRN headaches DICLOFENAC SODIUM 75 MG TBEC 887232 DICLOFENAC SODIUM Inactive PA VITAMIN D-3 2000 UNIT CAPS 1 CAP PO DAILY PA VITAMIN D-3 2000 UNIT CAPS CHOLECALCIFEROL Inactive PREVACID 30 MG CPDR Take 1 tablet by mouth daily-PRN PREVACID 30 MG CPDR 725399 LANSOPRAZOLE Inactive DOXYCYCLINE HYCLATE 100 MG TAB 1 tab twice a day for 14 days 2013 DOXYCYCLINE HYCLATE 100 MG TAB 982903 DOXYCYCLINE HYCLATE Inactive XOPENEX 1.25 MG/3ML NEBU 1 neb every 4 hours if needed for cough/congestion XOPENEX 1.25 MG/3ML NEBU 952369 LEVALBUTEROL HCL Inactive CYCLOBENZAPRINE HCL 10 MG TABS 1/2 - 1 tab by mouth three times daily if needed for spasms/pain CYCLOBENZAPRINE HCL 10 MG TABS 727271 CYCLOBENZAPRINE HCL Inactive ALBUTEROL SULFATE 0.083 % NEBU SOLN one vial per nebulizer every 4-6 hours as needed ALBUTEROL SULFATE 0.083 % NEBU SOLN 033108 ALBUTEROL SULFATE Inactive CEFTIN 500 MG TAB 1 twice a day CEFTIN 500 MG TAB 738550 CEFUROXIME AXETIL Inactive ZOFRAN ODT 4 MG TBDP 1 pill dissolved by mouth every 4 hours if needed for nausea ZOFRAN ODT 4 MG TBDP 092662 ONDANSETRON Inactive ADULT ASPIRIN EC LOW STRENGTH 81 MG TBEC Take 1 tablet by mouth daily 2014 ADULT ASPIRIN EC LOW STRENGTH 81 MG TBEC 445640 ASPIRIN Inactive CALCIUM 600+D PLUS MINERALS 600-400 [...] x 4 days AZITHROMYCIN 250 MG TABS 4459425 AZITHROMYCIN Inactive CEFDINIR 300 MG CAPS by mouth twice a day CEFDINIR 300 MG CAPS 093362 CEFDINIR Inactive AZITHROMYCIN 250 MG TABS 2 pills on day 1, then 1 pill daily x 4 days AZITHROMYCIN 250 MG TABS 4200943 AZITHROMYCIN Inactive DOXYCYCLINE HYCLATE 100 MG CAP 1 cap by mouth twice daily DOXYCYCLINE HYCLATE 100 MG CAP 19890510 DOXYCYCLINE HYCLATE Inactive Immunizations Vaccine Administration Date Value Standard Description Seasonal influenza vaccine, injectable, containing preservative, for > 3 years old (Afluria, FluLaval, Fluzone, Fluvirin, Fluarix, Agriflu(>=18 yo)) Fluzone (>3 yrs.) [QPC275] Influenza, seasonal, injectable influenza immunization (Flu Vax) has been administered Influenza - Unspecified Formulation [CVX88] influenza virus vaccine, unspecified formulation pneumococcal immunization administered Pneumovax 23 [CVX33] pneumococcal polysaccharide vaccine, 23 valent Seasonal influenza vaccine, injectable, containing preservative, for > 3 years old (Afluria, FluLaval, Fluzone, Fluvirin, Fluarix, Agriflu(>=18 yo)) Fluzone (>3 yrs.) [QZT063] Influenza, seasonal, injectable dT (Diphtheria and Tetanus) booster given given Td(adult) unspecified formulation Boostrix (Tetanus toxoid, reduced diphtheria toxoid and acellular pertussis vaccine, adsorbed), booster Boostrix [LNP522] tetanus toxoid, reduced diphtheria toxoid, and acellular [...] Outside labs entered on flowsheet - Chemistry potassium, serum 4.2 mmol/L blood glucose 85 mg/dL sodium, serum 143 mmol/L creatinine, serum 1.38 mg/dL Chart Maintenance: Outside labs entered on flowsheet - Hematology platelet count 175 10*3/mm3 leukocyte count, blood 6.1 10*3/mm3 hemoglobin, blood 11.0 g/dL Lab Report: Cardio IQ Advanced Lipid and Inlammation Panel /85858 - Chemistry cholesterol/HDL ratio, serum 3.0 calc < OR=5.0 cholesterol, serum 198 mg/dL [phone]/04/30 HDL cholesterol, serum 65 mg/dL > OR=46 triglyceride, serum, fasting 82 mg/dL LDL cholesterol, serum 117 mg/dL Lab Report: CBC W/DIFF, Basic Metabolic Panel - Chemistry sodium, serum 144 mmol/L 403-945 9523/01/21 potassium, serum 4.2 mmol/L 3.5-5.2 chloride, serum [...] leukocyte count, blood 4.1 10^3/MM^3 10*3/mm3 4.6-10.2 platelet count 189 10^3/MM^3 10*3/mm3 449-977 0412/01/21 hematocrit, blood 37.3 % 36.0-46.0 mean corpuscular volume, RBC 91 fL 80-97 mean corpuscular hemoglobin, RBC 29.6 pg 27.0-31.2 mean corpuscular hemoglobin concentration, RBC 32.6 G/DL % 31.8- 35.4 red blood cell distribution width 15.6 % 11.6-14.8 Lab Report: CBC W/DIFF, Comp. Metabolic Panel - Chemistry sodium, serum 144 mmol/L 070-348 1601/12/15 potassium, serum 5.4 mmol/L 3.5-5.2 chloride, serum [...] blood cell distribution width 15.9 % 11.6-14.8 leukocyte count, blood 4.1 10^3/MM^3 10*3/mm3 4.6-10.2 platelet count 186 10^3/MM^3 10*3/mm3 142-424 Lab Report: CBC, Comp. Metabolic Panel, FreeT4, TSH, UA - Chemistry potassium, serum 3.9 mmol/L 3.5-5.2 [...] dipstick Negative Negative sodium, serum 143 mmol/L 136-145 Lab Report: CBC, Comp. Metabolic Panel, FreeT4, TSH, UA - Hematology platelet count 186 10^3/MM^3 10*3/mm3 677-497 0159/10/24 red blood cell distribution width 15.6 % 11.6-14.8 mean corpuscular hemoglobin concentration, RBC 33.2 G/DL % 31.8- 35.4 mean corpuscular hemoglobin, RBC 30.4 pg 27.0-31.2 mean corpuscular volume, RBC 92 fL 80-97 hematocrit, blood 34.9 % 36.0-46.0 hemoglobin, blood 11.6 g/dL 12.0-16.0 erythrocyte (RBC) count 3.81 10^6/MM^3 10*6/mm3 4.04-5.48 leukocyte count, blood 5.3 10^3/MM^3 10*3/mm3 4.6-10.2 Lab Report: CBC, Comp. Metabolic Panel, FreeT4, [...] 51 mg/dL 30-200 cholesterol, serum 173 mg/dL 035-306 9977/04/28 HDL cholesterol, serum 63 mg/dL 32-96 LDL [...] 0-19 Encounters Code Encounter Date Provider Facility CPT-61965 Level 4 Est. Patient 21:29:26 CDT Yolande Lindsay MD [facility] CPT-61642 Level 3 Est. Patient 07:37:45 CDT Yolande Lindsay MD [facility] CPT-24012 Level 3 Est. Patient 17:03:46 CDT Yolande Lindsay MD [facility] CPT-96897 Level 4 Est. Patient 20:02:13 RUBBER MOLD MAKER Yolande Lindsay MD PhD [facility] CPT-03530 Level 3 Est. Patient 16:02:07 RUBBER MOLD MAKER Alexis Ordaz MD [facility] CPT-65861 Level 3 Est. Patient 12:41:24 RUBBER MOLD MAKER Yolande Lindsay MD PhD [facility] CPT-08259 Level 3 Est. Patient 15:41:20 RUBBER MOLD MAKER Yolande Lindsay MD [facility] CPT-16334 Level 3 Est. Patient 13:20:02 RUBBER MOLD MAKER Yolande Lindsay MD PhD [facility] CPT-93077 Level 3 Est. Patient 15:00:38 CDT Jared Og MD [facility]-01505 Level 3 Est. Patient 10:22:32 CDT Yolande Lindsay MD [facility]-15765 Level 3 Est. Patient 17:12:58 CDT Yolande Lindsay MD [facility]-45358 Level 4 Est. Patient 13:30:58 CDT Yolande Lindsay MD [facility]-23931 Level 4 New Patient 09:02:42 CDT Jared Og MD [facility]-64341 Level 3 Est. Patient 08:19:07 CDT Yolande Lindsay MD [facility]-55283 Level 3 Est. Patient 12:00:13 RUBBER MOLD MAKER Gab Padron MD [facility]-48449 Level 3 Est. Patient 16:15:23 RUBBER MOLD MAKER Yolande Lindsay MD [facility]-24547 Level 2 Est. Patient 19:47:15 CDT Yolande Lindsay MD [facility]-78742 Level 3 Est. Patient 21:38:31 CDT Yolande Lindsay MD [facility]-75943 Level 3 Est. Patient 10:25:12 CDT Adiel PERAZA [facility]-62211 Level 4 Est. Patient 10:51:58 CDT Yolande Lindsay MD [facility]-86575 Level 3 Est. Patient 14:04:55 RUBBER MOLD MAKER Rodrigo Sarah [facility]-12305 Level 3 Est. Patient 10:46:35 RUBBER MOLD MAKER Rodrigo Sarah [facility]-21384 Level 3 Est. Patient 14:24:37 RUBBER MOLD MAKER Yolande Lindsay MD [facility] CPT-58898 Level 3 Est. Patient 17:41:58 RUBBER MOLD MAKER Yolande Lindsay MD [facility] CPT-24828 Level 2 Est. Patient 22:01:41 RUBBER MOLD MAKER Rodrigo Sarah [facility] CPT-73163 Level 2 Est. Patient 22:01:11 RUBBER MOLD MAKER Rodrigo Sarah [facility] CPT-04897 Level 3 Est. Patient 10:12:29 RUBBER MOLD MAKER Rodrigo Sarah [facility] CPT-75576 Level 3 Est. Patient 11:05:44 CDT Alexis Ordaz MD [facility] CPT-01731 Level 3 Est. Patient 14:57:20 CDT Yolande Lindsay MD [facility] CPT-66227 Level 3 Est. Patient 14:40:57 CDT Yolande Lindsay MD [facility] CPT-10592 Level 3 Est. Patient 20:55:40 CDT Yolande Lindsay MD [facility] CPT-36915 Level 3 Est. Patient 12:42:38 RUBBER MOLD MAKER Yolande Lindsay MD [facility] CPT-72831 Level 3 Est. Patient 11:54:49 RUBBER MOLD MAKER Des Hines MD [facility] CPT-16521 Level 3 Est. Patient 17:06:38 CDT Dewayne PERAZA [facility] Procedures Code Procedure Name Date Entry Date Standard Description [id number] Event Monitor - MC Transmission 09:12:32 CDT 08/06 [id number] Event Monitor - MC review and interp 09:12:32 CDT [id number] Event Monitor - MC recording 09:12:32 CDT CPT-76200 EKG Trac and Interp 16:50:22 CDT CPT-J1030 Depo Medrol 40 mg (Methyl Prednisolone Acetate) 17:05: 54 CDT CPT-J1100 Decadron 4mg (Dexamethasone) 17:05:54 CDT CPT-71031 Abx/Therapy Injection 17:05:54 CDT CPT-J1100 Decadron 4mg (Dexamethasone) 16:55:28 CDT CPT-J1030 Depo Medrol 40 mg (Methyl Prednisolone Acetate) 16:55: 28 CDT CPT-07838 Ankle Complete - Min 3V 15:58:50 CDT CPT-00933 Knee 3V 15:58:50 CDT CPT-09873 Hip comp min 2V 15:58:50 CDT CPT-J2270 Morphine Sulfate 10 mg 14:25:44 RUBBER MOLD MAKER CPT-J2550 Phenergan 12.5 mg (Promethazine) 14:25:44 RUBBER MOLD MAKER CPT-28757 Abx/Therapy Injection 14:25:44 RUBBER MOLD MAKER CPT-J2550 Phenergan 12.5 mg (Promethazine) 14:08:03 RUBBER MOLD MAKER CPT-J2270 Morphine Sulfate 10 mg 14:08:03 RUBBER MOLD MAKER CPT-00084 Bladder Scan 15:00:38 CDT CPT-TCMM Transitional Care Mgmt-Moderate 09:52:22 CDT CPT-J1030 Depo Medrol 40 mg (Methyl Prednisolone Acetate) 10:55: 18 CDT CPT-J1100 Decadron 4mg (Dexamethasone) 10:55:18 CDT CPT-69368 Abx/Therapy Injection 10:55:18 CDT CPT-J1030 Depo Medrol 40 mg (Methyl Prednisolone Acetate) 10:22: 32 CDT CPT-J1100 Decadron 4mg (Dexamethasone) 10:22:32 CDT CPT-73683 Postop F/U Visit 14:37:13 CDT CPT-75232 Ankle Complete - Min 3V 17:11:58 CDT CPT-40829 Foot comp min 3V 17:11:58 CDT CPT-66900 Bladder Scan 09:56:58 CDT CPT-00526 Postop F/U Visit 09:56:58 CDT CPT-19265 Cystoscopy 09:02:42 CDT CPT-42490 Bladder Scan 09:02:42 CDT CPT-53357 Abd single AP View 16:00:35 CDT CPT-54597 Administration single or combination vaccine inc oral 10 :15:43 CDT CPT-34027 Influenza split virus > age 3 10:15:43 CDT CPT-42808 Nail Avulsion 09:24:57 CDT CPT-OV Office Visit 11:15:41 CDT CPT-04128 Abx/Therapy Injection 10:51:30 CDT CPT-J3301 Kenalog 40 mg (Triamcinolone Acetonide) 10:25:12 CDT CPT-J1100 Decadron 4mg (Dexamethasone) 10:25:12 CDT CPT-89384 Anoscopy diagnostic 10:36:12 CDT CPT-OV Office Visit 15:34:31 CDT CPT-32401 Abx/Therapy Injection 08:21:15 RUBBER MOLD MAKER CPT-J1885 Toradol 60 mg (Ketorolac) 10:46:35 RUBBER MOLD MAKER CPT-OV Office Visit 19:51:16 RUBBER MOLD MAKER CPT-04156 Spec Collection and Handling Fee 14:34:18 RUBBER MOLD MAKER CPT-PV Prev. Care Visit 14:19:18 RUBBER MOLD MAKER CPT-93834 Postop F/U Visit 14:47:51 RUBBER MOLD MAKER CPT-38766 Postop F/U Visit 15:15:14 RUBBER MOLD MAKER CPT-14355 Postop F/U Visit 14:41:43 CDT CPT-63886 Postop F/U Visit 15:47:46 CDT CPT-OV Office Visit 15:27:23 CDT CPT-OV Office Visit 17:20:34 CDT CPT-42443 Abx/Therapy Injection 15:05:57 CDT CPT-J1100 Decadron 8mg (Dexamethasone) 14:44:57 CDT CPT-J1040 Depo Medrol 80 mg (Methyl Prednisolone Acetate) 14:44: 57 CDT CPT-JTINJ Joint Injection 10:17:37 CDT CPT-38319 Administration 2+ single or combination vaccines inc oral 13:01:46 RUBBER MOLD MAKER CPT-80667 Administration single or combination vaccine inc oral 13 :01:46 RUBBER MOLD MAKER CPT-76691 Pneumovax 13:01:46 RUBBER MOLD MAKER CPT-90582 Influenza split virus > age 3 13:01:46 RUBBER MOLD MAKER CPT-83393 Administration single or combination vaccine inc oral 08 :56:49 CDT CPT-21898 Tdap 08:56:49 CDT
--- OUTSIDE RECORDS SUMMARY | 2017-03-21 22:15 | XMS REPORT ---
Author Author [facility] [employer] [facility] Medical Staff Organization [facility] Address [address] [place] [id number] Phone [phone] Care Team Providers Care Chief Operator Hydroformer Name Role Phone LENKA HUTSON, EUNICE PP [phone] Summary purpose TRANSITION OF CARE AUTO GENERATION [...] tests and/or laboratory data RESULTS Radiology Results [id number] Endovaginal Sono PACs Image DATE OF EXAM: Sep 19 2014 [id number] SONO : RADIOLOGY REPORT DATE OF SERVICE: 09/19/14 HISTORY: Pelvic pain PELVIC [id number] HOURS Transabdominal and endovaginal imaging was performed. The bladder is normal. There are changes of prior hysterectomy. The vaginal cuff is normal. In the upper right adnexa, there is a fairly large area that is echogenic peripherally and hypoechoic centrally. This is probably a distended bowel loop. Neither ovary is clearly visualized. There is no free fluid. IMPRESSION: No definite pelvic abnormality. Prominent bowel loop in the right lower quadrant. Review of the CT study performed 09/11/2014 shows no evidence of a definite pelvic mass. MD DEMI [email or web address] 10:25:09/19/2014 10:30:14 cc:Dr. Loyda Samano This document has been electronically Signed by: On: DATE OF EXAM: Sep 19 2014 [id number] SONO : RADIOLOGY REPORT DATE OF SERVICE: 09/19/14 HISTORY: Pelvic pain PELVIC [id number] HOURS Transabdominal and endovaginal imaging was performed. The bladder is normal. There are changes of prior hysterectomy. The vaginal cuff is normal. In the upper right adnexa, there is a fairly large area that is echogenic peripherally and hypoechoic centrally. This is probably a distended bowel loop. Neither ovary is clearly visualized. There is no free fluid. IMPRESSION: No definite pelvic abnormality. Prominent bowel loop in the right lower quadrant. Review of the CT study performed 09/11/2014 shows no evidence of a definite pelvic mass. MD DEMI Hubbard/liam09/19/2014 10:25: / 09/19/2014 10:30:14 cc:Dr. Loyda Samano This document has been electronically Signed by: ARCENIO NINO On: Sep 19 20145:34P Result Amended on 2014-09-19 at 17:34:28. Previous status was ND. History of procedures No procedures recorded for [...]
--- OUTSIDE RECORDS SUMMARY | 2017-03-21 22:18 | XMS REPORT | Clinical Summary ---
Author Author Admin, MARGRET Organization [employer] Address Unknown Phone Unavailable Allergies, Adverse Reactions, Alerts Allergy Name Reaction Description Start Date Severity Status Provider VALENTIN Critical Active Rodrigo Montemayorl GAUGER CHIEF CHLORHEXIDINE GLUCONATE tongue and gums swollen Critical Active Hoa Kabaford RMA NORFLEX Rash Critical Active Rowenaina Farshadzell GAUGER CHIEF TRAZODONE HCL sees things Critical Active Dewayne [...] infarction, hx of 412 Active Hoa Otto [facility] Old myocardial infarction Pelvic pain 789.09 Active Yolande Lindsay MD PhD Abdominal pain, other specified site; multiple sites Edema 782.3 Active Yolande Lindsay MD PhD Edema Rash 782.1 Active Yolande Lindsay MD PhD Rash and other nonspecific skin eruption Back pain, lumbar 724.2 Active Gab Padron MD Lumbago Cough 786.2 Active Jillina Tyrel GAUGER CHIEF Cough 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 Jillina Frazellilian GAUGER CHIEF 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 Anemia 285.9 Active Gab Padron MD Anemia, unspecified Conjunctivitis 372.30 Active Jillina Tyrel GAUGER CHIEF Conjunctivitis, unspecified Sinusitis 473.9 Active Jillina Frazell GAUGER CHIEF Unspecified sinusitis (chronic) Nonspecific syndrome suggestive of viral illness 079.99 Active Rodrigo Sarah APRN Unspecified viral infection Laryngitis 464.00 Active Jillina Tyrel GAUGER CHIEF Acute laryngitis without mention of obstruction Abdominal [...] 1/2 tab daily for 2 days PREDNISONE 20900608974 No Longer Active Gab Padron MD Active ZOFRAN ODT 4 MG TBDP 1 po q6hr PRN Nausea ONDANSETRON 24964434172 Active Jillina Frazell GAUGER CHIEF Active IBUPROFEN 600 MG TAB 1 tablet by mouth every 6 hours for 7 days, then 1 tablet every 6 hours as needed. Take with food IBUPROFEN 79323204973 Active Jillina Frazell GAUGER CHIEF Active BACTRIM DS 800-160 MG TAB 1 tab by mouth twice daily TRIMETHOPRIM-SULFAMETHOXAZOLE 65639589743 No Longer Active Gab Padron MD Active ADVAIR DISKUS 250-50 MCG/DOSE AEPB 1 puff BID FLUTICASONE- SALMETEROL 65879586287 Active Rodrigo Sarah APRN Active LEVOTHYROXINE SODIUM 75 MCG TABS Take 1 tab daily LEVOTHYROXINE SODIUM 29677991327 No Longer Active Mariana Lermagilma HICKEYA Active SYNTHROID 88 MCG ORAL TABS Take one by mouth daily LEVOTHYROXINE SODIUM 59758997007 Active Gab Padron MD Active CHERATUSSIN AC 100-10 MG/5ML SYRP 1 tsp by mouth every 4 hours as needed for cough GUAIFENESIN-CODEINE 39526767191 No Longer Active Gab Padron MD Active POLYTRIM 57058-9.1 UNIT/ML-% SOLN 1 gtt to affected eye q3h x 7 days POLYMYXIN B-TRIMETHOPRIM 94421666256 No Longer Active Gab Padron MD Active FLUTICASONE PROPIONATE 50 MCG/ACT SUSP 1 to 2 sprays each nostril daily 04/21 FLUTICASONE PROPIONATE 74471738586 No Longer Active Gab Padron MD Active TRILEPTAL 600 MG TABS Take one 1 tablet in Am and 1 tablet at night OXCARBAZEPINE 27402482066 Active Gab Padron MD Active CEFDINIR 300 MG CAPS 1 po BID x 10 days CEFDINIR 04344971671 No Longer Active Rodrigo Sarah APRN Active CEFTIN 500 MG TAB 1 twice a day CEFUROXIME AXETIL 09503068469 No Longer Active Gab Padron MD Active AZITHROMYCIN 250 MG TABS 2 po qd x 1 day, then 1 po qd x 4 days AZITHROMYCIN 70633040893 No Longer Active Rodrigo Sarah APRN Active CLARITIN 10 MG TAB 1 tablet by mouth daily as needed for allergies LORATADINE 73095478403 Active Rodrigo Sarah APRN Active OXYCODONE HCL 5 MG ORAL CAPS 1 TAB PO Q HS OXYCODONE HCL 51582050179 No Longer Active Rodrigo Sarah APRN Active NIASPAN 500 MG ORAL CR-TABS 1 pill nightly x 1 week, then 2 pills nightly x 1 week, then 3 pills nightly x 1 week, then 4 pills nightly NIACIN (ANTIHYPERLIPIDEMIC) 49875869051 No Longer Active Rodrigo Sarah APRN Active NIACIN 500 MG TABS 1 pill by mouth nightly x 1 week, then 2 pills x 1 week, then 3 pills x 1 week, then 4 pills nightly - take after evening meal, with applesauce or an apple NIACIN 33597238276 No Longer Active Yolande Lindsay MD PhD Active FISH OIL 1000 MG CAPS 3 pills daily OMEGA-3 FATTY ACIDS 16145530600 Active Yolande Lindsay MD PhD Active TRIAMCINOLONE ACETONIDE 0.1 % CREA apply bid sparingly to rash TRIAMCINOLONE ACETONIDE 51950517295 Active Yolande Lindsay MD PhD Active FUROSEMIDE 20 MG TAB 1 tablet by mouth daily FUROSEMIDE 89161548368 Active Gab Padron MD Active LISINOPRIL 20 MG ORAL TABS 1 tab by mouth daily LISINOPRIL 54677765706 Active Gab Padron MD Active FUROSEMIDE 20 MG TABS 1 pill by mouth daily, for edema FUROSEMIDE 74359455550 No Longer Active Yolande Lindsay MD PhD Active ATORVASTATIN CALCIUM 10 MG TABS 1 pill by mouth daily, for cholesterol 09/06 ATORVASTATIN CALCIUM 27942098891 Active Gab Padron MD Active CALCIUM 600+D PLUS MINERALS 600-400 MG-UNIT ORAL CHEW 1 tab by mouth daily CALCIUM CARBONATE-VIT D-MIN 48916010490 No Longer Active Yolande Lindsay MD PhD Active CYCLOBENZAPRINE HCL 10 MG TABS 1 tablet by mouth three times daily as needed for muscle spasm/pain CYCLOBENZAPRINE HCL 55247085435 Active Yolande Lindsay MD PhD Active ONDANSETRON 4 MG TBDP 1 q4h PRN nausea ONDANSETRON 95237328243 Active Yolande Lindsay MD PhD Active ADULT ASPIRIN EC LOW STRENGTH 81 MG TBEC Take 1 tablet by mouth daily 2014 ASPIRIN 69216250894 No Longer Active Yolande Lindsay MD PhD Active ZOFRAN ODT 4 MG TBDP 1 pill dissolved by mouth every 4 hours if needed for nausea ONDANSETRON 74243221423 No Longer Active Yolande Lindsay MD PhD Active CEFTIN 500 MG TAB 1 twice a day CEFUROXIME AXETIL 15395289564 No Longer Active Yolande Lindsay MD PhD Active ALBUTEROL SULFATE 0.083 % NEBU SOLN one vial per nebulizer every 4-6 hours as needed ALBUTEROL SULFATE 19132946895 No Longer Active Alexis Ordaz MD Active DOXYCYCLINE HYCLATE 100 MG CAP 1 cap by mouth twice daily DOXYCYCLINE HYCLATE 87928376437 No Longer Active Yolande Lindsay MD PhD Active CYCLOBENZAPRINE HCL 10 MG TABS 1/2 - 1 tab by mouth three times daily if needed for spasms/pain CYCLOBENZAPRINE HCL 11870254331 No Longer Active Yolande Lindsay MD PhD Active AZITHROMYCIN 250 MG TABS 2 pills on day 1, then 1 pill daily x 4 days AZITHROMYCIN 45686616798 No Longer Active Yolande Lindsay MD PhD Active XOPENEX 1.25 MG/3ML NEBU 1 neb every 4 hours if needed for cough/congestion LEVALBUTEROL HCL 43343493826 No Longer Active Yolande Lindsay MD PhD Active DOXYCYCLINE HYCLATE 100 MG TAB 1 tab twice a day for 14 days 2013 DOXYCYCLINE HYCLATE 46555224506 No Longer Active Yolande Lindsay MD PhD Active PREVACID 30 MG CPDR Take 1 tablet by mouth daily-PRN LANSOPRAZOLE 18133194400 No Longer Active Yolande Lindsay MD PhD Active PA VITAMIN D-3 2000 UNIT CAPS 1 CAP PO DAILY CHOLECALCIFEROL 95032582790 No Longer Active Yolande Lindsay MD PhD Active CEFDINIR 300 MG CAPS by mouth twice a day CEFDINIR 60638552042 No Longer Active Gab Padron MD Active TOPAMAX 50 MG TABS 1 PO twice daily TOPIRAMATE 72287034703 Active Yolande Lindsay MD PhD Active AZITHROMYCIN 250 MG TABS 2 po qd x 1 day, then 1 po qd x 4 days AZITHROMYCIN 39077317436 No Longer Active Yolande Lindsay MD PhD Active DICLOFENAC SODIUM 75 MG TBEC 1 tablet by q 12 hours PRN headaches DICLOFENAC SODIUM 26796261993 No Longer Active Yolande Lindsay MD PhD Active FLONASE 50 MCG/ACT SUSP 1 spray each nostril am and hs FLUTICASONE PROPIONATE 77673096743 No Longer Active Todd Callaway MD Active ANUSOL-HC 25 MG SUPPOSITORY 1 rectally twice a day as needed for hemorrhoids HYDROCORTISONE JAYDEN (RECTAL) 96779712845 No Longer Active Yolande Lindsay MD PhD Active ANUSOL-HC 25 MG SUPPOSITORY 1 suppository rectally each evening as needed for anal fissure HYDROCORTISONE JAYDEN (RECTAL) 47666890557 No Longer Active LONNIE Iglesias Active VALIUM 5 MG TAB 1 po 30 minutes prior to your MRI DIAZEPAM 72922893760 No Longer Active LONNIE Iglesias Active METHOCARBAMOL 750 MG TABS 1 PO QID PRN METHOCARBAMOL 32872648609 No Longer Active Daphne Wetzel APRN Active NITROSTAT 0.4 MG SUBL as directed NITROGLYCERIN 43437163991 No Longer Active Jillina Frahossein ZAPATAN Active ROBAXIN-750 750 MG TABS 2 four times a day for 3 days as needed for muscle spasm, then 1 four times a day as needed METHOCARBAMOL 74723971313 No Longer Active Silvestrellina Tyrel ZAPATAN Active HYDROCODONE-ACETAMINOPHEN 5-325 MG TABS 1 q 4-6 hrs prn HYDROCODONE-ACETAMINOPHEN 21436621596 No Longer Active Silvestrellnacho Sarah APRN Active VERAPAMIL HCL CR 180 MG CR-TABS TAKE 1 TAB DAILY VERAPAMIL HCL 06353556838 No Longer Active Yolande Lindsay MD PhD Active BACTRIM DS 800-160 MG TAB 1 tab by mouth twice daily TRIMETHOPRIM-SULFAMETHOXAZOLE 20523324274 No Longer Active Yolande Lindsay MD PhD Active NEXIUM 40 MG PACK 1 by mouth daily ESOMEPRAZOLE MAGNESIUM 20902158822 No Longer Active Des Hines MD Active EPIPEN 2-CHARLETTE 0.3 MG/0.3ML OMARI as need for allergic reaction EPINEPHRINE 71236337174 Active Yolande Lindsay MD PhD Active NEXIUM 40 MG CPDR 1 PO Q D DAY ESOMEPRAZOLE MAGNESIUM 78801952444 No Longer Active Sadia Perry RN Active NEXIUM 40 MG PACK 1 by mouth daily NEXIUM 40 MG PACK ESOMEPRAZOLE MAGNESIUM Inactive VERAPAMIL HCL CR 180 MG CR-TABS TAKE 1 TAB DAILY VERAPAMIL HCL CR 180 MG CR-TABS VERAPAMIL HCL Inactive HYDROCODONE-ACETAMINOPHEN 5-325 MG TABS 1 q 4-6 hrs prn HYDROCODONE-ACETAMINOPHEN 5-325 MG TABS 544663 HYDROCODONE-ACETAMINOPHEN Inactive ROBAXIN-750 750 MG TABS 2 four times a day for 3 days as needed for muscle spasm, then 1 four times a day as needed ROBAXIN-750 750 MG TABS 116456 METHOCARBAMOL Inactive NITROSTAT 0.4 MG SUBL as directed NITROSTAT 0.4 MG SUBL 210214 NITROGLYCERIN Inactive METHOCARBAMOL 750 MG TABS 1 PO QID PRN METHOCARBAMOL 750 MG TABS 607209 METHOCARBAMOL Inactive VALIUM 5 MG TAB 1 po 30 minutes prior to your MRI VALIUM 5 MG TAB 044258 DIAZEPAM Inactive ANUSOL-HC 25 MG SUPPOSITORY 1 suppository rectally each evening as needed for anal fissure ANUSOL-HC 25 MG SUPPOSITORY 0055947 HYDROCORTISONE JAYDEN (RECTAL) Inactive ANUSOL-HC 25 MG SUPPOSITORY 1 rectally twice a day as needed for hemorrhoids ANUSOL-HC 25 MG SUPPOSITORY 4969107 HYDROCORTISONE JAYDEN (RECTAL) Inactive FLONASE 50 MCG/ACT SUSP 1 spray each nostril am and hs FLONASE 50 MCG/ACT SUSP FLUTICASONE PROPIONATE Inactive DICLOFENAC SODIUM 75 MG TBEC 1 tablet by q 12 hours PRN headaches DICLOFENAC SODIUM 75 MG TBEC 468320 DICLOFENAC SODIUM Inactive PA VITAMIN D-3 2000 UNIT CAPS 1 CAP PO DAILY PA VITAMIN D-3 2000 UNIT CAPS CHOLECALCIFEROL Inactive PREVACID 30 MG CPDR Take 1 tablet by mouth daily-PRN PREVACID 30 MG CPDR 870893 LANSOPRAZOLE Inactive DOXYCYCLINE HYCLATE 100 MG TAB 1 tab twice a day for 14 days 2013 DOXYCYCLINE HYCLATE 100 MG TAB 4799910 DOXYCYCLINE HYCLATE Inactive XOPENEX 1.25 MG/3ML NEBU 1 neb every 4 hours if needed for cough/congestion XOPENEX 1.25 MG/3ML NEBU 608593 LEVALBUTEROL HCL Inactive CYCLOBENZAPRINE HCL 10 MG TABS 1/2 - 1 tab by mouth three times daily if needed for spasms/pain CYCLOBENZAPRINE HCL 10 MG TABS 626313 CYCLOBENZAPRINE HCL Inactive ALBUTEROL SULFATE 0.083 % NEBU SOLN one vial per nebulizer every 4-6 hours as needed ALBUTEROL SULFATE 0.083 % NEBU SOLN 049007 ALBUTEROL SULFATE Inactive CEFTIN 500 MG TAB 1 twice a day CEFTIN 500 MG TAB 240524 CEFUROXIME AXETIL Inactive ZOFRAN ODT 4 MG TBDP 1 pill dissolved by mouth every 4 hours if needed for nausea ZOFRAN ODT 4 MG TBDP 398015 ONDANSETRON Inactive ADULT ASPIRIN EC LOW STRENGTH 81 MG TBEC Take 1 tablet by mouth daily 2014 ADULT ASPIRIN EC LOW STRENGTH 81 MG TBEC 874882 ASPIRIN Inactive CALCIUM 600+D PLUS MINERALS 600-400 [...] or an apple NIACIN 500 MG TABS 644113 NIACIN Inactive NIASPAN 500 MG ORAL CR-TABS 1 pill nightly x 1 week, then 2 pills nightly x 1 week, then 3 pills nightly x 1 week, then 4 pills nightly NIASPAN 500 MG ORAL CR-TABS NIACIN (ANTIHYPERLIPIDEMIC) Inactive OXYCODONE HCL 5 MG ORAL CAPS 1 TAB PO Q HS OXYCODONE HCL 5 MG ORAL CAPS 8315422 OXYCODONE HCL Inactive FLUTICASONE PROPIONATE 50 MCG/ACT SUSP 1 to 2 sprays each nostril daily 04/21 FLUTICASONE PROPIONATE 50 MCG/ACT SUSP 8609952 FLUTICASONE PROPIONATE Inactive POLYTRIM 66451-8.1 UNIT/ML-% SOLN 1 gtt to affected eye q3h x 7 days POLYTRIM 49677-0.1 UNIT/ML-% SOLN 443374 POLYMYXIN B- TRIMETHOPRIM Inactive CHERATUSSIN AC 100-10 MG/5ML SYRP 1 tsp by mouth every 4 hours as needed for cough CHERATUSSIN AC 100-10 MG/5ML SYRP 621559 GUAIFENESIN-CODEINE Inactive LEVOTHYROXINE SODIUM 75 MCG TABS Take 1 tab daily LEVOTHYROXINE SODIUM 75 MCG TABS 811498 LEVOTHYROXINE SODIUM Inactive BACTRIM DS 800-160 MG TAB 1 tab by mouth twice daily BACTRIM DS 800-160 MG TAB 19820606 TRIMETHOPRIM-SULFAMETHOXAZOLE Inactive AZITHROMYCIN 250 MG TABS 2 po qd x 1 day, then 1 po qd x 4 days AZITHROMYCIN 250 MG TABS 4892138 AZITHROMYCIN Inactive CEFDINIR 300 MG CAPS by mouth twice a day CEFDINIR 300 MG CAPS 20020708 CEFDINIR Inactive AZITHROMYCIN 250 MG TABS 2 pills on day 1, then 1 pill daily x 4 days AZITHROMYCIN 250 MG TABS 4711817 AZITHROMYCIN Inactive DOXYCYCLINE HYCLATE 100 MG CAP 1 cap by mouth twice daily DOXYCYCLINE HYCLATE 100 MG CAP 2909861 DOXYCYCLINE HYCLATE Inactive FUROSEMIDE 20 MG TABS 1 pill by mouth daily, for edema FUROSEMIDE 20 MG TABS 416276 FUROSEMIDE Inactive AZITHROMYCIN 250 MG TABS 2 po qd x 1 day, then 1 po qd x 4 days AZITHROMYCIN 250 MG TABS 5375733 AZITHROMYCIN Inactive CEFTIN 500 MG TAB 1 twice a day CEFTIN 500 MG TAB 307486 CEFUROXIME AXETIL Inactive CEFDINIR 300 MG CAPS [...] for 2 days PREDNISONE 20 MG TAB 190468 PREDNISONE Inactive Immunizations Vaccine Administration Date Value Standard Description Seasonal influenza vaccine, injectable, containing preservative, for > 3 years old (Afluria, FluLaval, Fluzone, Fluvirin, Fluarix, Agriflu(>=18 yo)) Fluzone (>3 yrs.) [ZXG364] Influenza, seasonal, injectable influenza immunization (Flu Vax) has been administered Influenza - Unspecified Formulation [CVX88] influenza virus vaccine, unspecified formulation Seasonal influenza vaccine, injectable, containing preservative, for > 3 years old (Afluria, FluLaval, Fluzone, Fluvirin, Fluarix, Agriflu(>=18 yo)) Fluzone (>3 yrs.) [[id number]] Influenza, seasonal, injectable pneumococcal immunization administered Pneumovax 23 [CVX33] pneumococcal polysaccharide vaccine, 23 valent dT (Diphtheria and Tetanus) booster given given Td(adult) unspecified formulation Boostrix (Tetanus toxoid, reduced diphtheria toxoid and acellular pertussis vaccine, adsorbed), booster Boostrix [[id number]] tetanus toxoid, reduced diphtheria toxoid, and acellular [...] Panel - Chemistry sodium, serum 142 mmol/L 247-227 2755/06/30 potassium, serum 4.4 mmol/L 3.5-5.2 chloride, serum [...] Rate - Chemistry sodium, serum 139 mmol/L 089-568 4371/03/24 carbon dioxide, venous blood 22.4 mmol/L 21.0-32.0 [...] ... - Chemistry sodium, serum 143 mmol/L 008-647 5415/05/02 carbon dioxide, venous blood 25.6 mmol/L 21.0-32.0 [...] dipstick Negative Negative sodium, serum 142 mmol/L 265-167 4531/07/18 carbon dioxide, venous blood 27.8 mmol/L 21.0-32.0 [...] negative Encounters Code Encounter Date Provider Facility CPT-26754 Level 4 Est. Patient 16:31:27 CDT Gab Padron MD [facility] CPT-39634 Level 2 Est. Patient 12:23:38 CDT Jared Og MD [facility] CPT-07464 Level 3 Est. Patient 11:01:51 CDT Gab Padron MD [facility] CPT-24590 Level 3 Est. Patient 15:27:02 CDT Jared Og MD [facility] CPT-59383 Level 4 Est. Patient 09:25:27 CDT Gab Padron MD [facility] CPT-17280 Level 3 Est. Patient 10:29:41 CDT Rodrigo Sarah [facility] CPT-64922 Level 4 Est. Patient 17:51:05 CDT Gab Padron MD [facility] CPT-47447 Level 3 Est. Patient 14:18:08 CDT Gab Padron MD [facility] CPT-63986 Level 4 Est. Patient 10:18:54 CDT Gab Padron MD [facility] CPT-25842 Level 3 Est. Patient 11:30:07 CDT Rodrigo Sarah [facility] CPT-14128 Level 4 Est. Patient 21:02:30 FISCAL ACCOUNTANT Gab Padron MD [facility] CPT-87842 Level 3 Est. Patient 11:02:19 FISCAL ACCOUNTANT Gab Padron MD [facility] CPT-42049 Level 4 Est. Patient 22:24:31 FISCAL ACCOUNTANT Gab Padron MD [facility] CPT-04092 Level 3 Est. Patient 18:33:46 FISCAL ACCOUNTANT Gab Padron MD [facility] CPT-98880 Level 3 Est. Patient 16:19:11 CDT Yolande Lindsay MD [facility]-03645 Level 3 Est. Patient 18:59:14 CDT Yolande Lindsay MD [facility]-13834 Level 4 Est. Patient 21:29:26 CDT Yolande Lindsay MD [facility]-16436 Level 3 Est. Patient 07:37:45 CDT Yolande Lindsay MD [facility]-58658 Level 3 Est. Patient 17:03:46 CDT Yolande Lindsay MD [facility]-04078 Level 4 Est. Patient 20:02:13 FISCAL ACCOUNTANT Yolande Lindsay MD [facility]-85343 Level 3 Est. Patient 16:02:07 FISCAL ACCOUNTANT Alexis Ordaz MD [facility]-00428 Level 3 Est. Patient 12:41:24 FISCAL ACCOUNTANT Yolande Lindsay MD [facility]-62390 Level 3 Est. Patient 15:41:20 FISCAL ACCOUNTANT Yolande Lindsay MD [facility]-24816 Level 3 Est. Patient 13:20:02 FISCAL ACCOUNTANT Yolande Lindsay MD [facility]-88995 Level 3 Est. Patient 15:00:38 CDT Jared Og MD [facility]-83582 Level 3 Est. Patient 10:22:32 CDT Yolande Lindsay MD [facility]-45455 Level 3 Est. Patient 17:12:58 CDT Yolande Lindsay MD [facility]-34148 Level 4 Est. Patient 13:30:58 CDT Yolande Lindsay MD [facility]-24526 Level 4 New Patient 09:02:42 CDT Jared gO MD [facility]-98510 Level 3 Est. Patient 08:19:07 CDT Yolande Lindsay MD [facility]-05732 Level 3 Est. Patient 12:00:13 FISCAL ACCOUNTANT Gab Padron MD [facility]-07788 Level 3 Est. Patient 16:15:23 FISCAL ACCOUNTANT Yolande Lindsay MD [facility]95825 Level 2 Est. Patient 19:47:15 CDT Yolande Lindsay MD [facility]-55405 Level 3 Est. Patient 21:38:31 CDT Yolande Lindsay MD [facility]-77912 Level 3 Est. Patient 10:25:12 CDT Adiel PERAZA [facility]-87913 Level 4 Est. Patient 10:51:58 CDT Yolande Lindsay MD [facility]-88005 Level 3 Est. Patient 14:04:55 FISCAL ACCOUNTANT Rodrigo Sarah [facility]-69490 Level 3 Est. Patient 10:46:35 FISCAL ACCOUNTANT Rodrigo Sarah [facility]-04916 Level 3 Est. Patient 14:24:37 FISCAL ACCOUNTANT Yolande Lindsay MD [facility]-20447 Level 3 Est. Patient 17:41:58 FISCAL ACCOUNTANT Yolande Lindsay MD [facility]-83421 Level 2 Est. Patient 22:01:41 FISCAL ACCOUNTANT Rodrigo Sarah [facility]-90272 Level 2 Est. Patient 22:01:11 FISCAL ACCOUNTANT Rodrigo Sarah [facility]-04165 Level 3 Est. Patient 10:12:29 FISCAL ACCOUNTANT Rodrigo Sarah [facility]-56003 Level 3 Est. Patient 11:05:44 CDT Alexis Ordaz MD [facility] CPT-94917 Level 3 Est. Patient 14:57:20 CDT Yolande Lindsay MD [facility] CPT-51735 Level 3 Est. Patient 14:40:57 CDT Yolande Lindsay MD [facility] CPT-28110 Level 3 Est. Patient 20:55:40 CDT Yolande Lindsay MD [facility] CPT-54211 Level 3 Est. Patient 12:42:38 FISCAL ACCOUNTANT Yolande Lindsay MD [facility]-01412 Level 3 Est. Patient 11:54:49 FISCAL ACCOUNTANT Des Hines MD [facility] CPT-47962 Level 3 Est. Patient 17:06:38 CDT Dewayne PERAZA [facility] Procedures Code Procedure Name Date Entry Date Standard Description CPT-73222 First Vx - Ix admin via ID IM or jet injects without counseling by physician 11:52:31 CDT CPT-15723 Fluzone Preservative Free Intramuscular Suspension 11:52 :31 CDT CPT-26167 Foot, left, comp min 3V - XRAY USE ONLY 09:24:54 CDT CPT-83266 Abd single AP View - XRAY USE ONLY 11:16:17 CDT CPT-54947 T spine AP/ Lat - XRAY USE ONLY 09:34:21 CDT CPT-52997 Chest 2V Frontal and Lat - XRAY USE ONLY 10:48:51 CDT CPT-25313 LS spine comp w obliq 13:28:00 FISCAL ACCOUNTANT CPT-J1040 Depo Medrol 80 mg (Methyl Prednisolone Acetate) 10:51: 28 FISCAL ACCOUNTANT CPT-J1100 Decadron 8mg (Dexamethasone) 10:51:28 FISCAL ACCOUNTANT CPT-39265 Abx/Therapy Injection 10:51:28 FISCAL ACCOUNTANT CPT-J1100 Decadron 8mg (Dexamethasone) 21:02:30 FISCAL ACCOUNTANT CPT-J1040 Depo Medrol 80 mg (Methyl Prednisolone Acetate) 21:02: 30 FISCAL ACCOUNTANT [id number] Event Monitor - MC Transmission 09:12:32 CDT 08/06 [id number] Event Monitor - MC review and interp 09:12:32 CDT [id number] Event Monitor - MC recording 09:12:32 CDT CPT-10724 EKG Trac and Interp 16:50:22 CDT CPT-J1030 Depo Medrol 40 mg (Methyl Prednisolone Acetate) 17:05: 54 CDT CPT-J1100 Decadron 4mg (Dexamethasone) 17:05:54 CDT CPT-65426 Abx/Therapy Injection 17:05:54 CDT CPT-J1100 Decadron 4mg (Dexamethasone) 16:55:28 CDT CPT-J1030 Depo Medrol 40 mg (Methyl Prednisolone Acetate) 16:55: 28 CDT CPT-72052 Ankle Complete - Min 3V 15:58:50 CDT CPT-51051 Knee 3V 15:58:50 CDT CPT-18663 Hip comp min 2V 15:58:50 CDT CPT-J2270 Morphine Sulfate 10 mg 14:25:44 FISCAL ACCOUNTANT CPT-J2550 Phenergan 12.5 mg (Promethazine) 14:25:44 FISCAL ACCOUNTANT CPT-31725 Abx/Therapy Injection 14:25:44 FISCAL ACCOUNTANT CPT-J2550 Phenergan 12.5 mg (Promethazine) 14:08:03 FISCAL ACCOUNTANT CPT-J2270 Morphine Sulfate 10 mg 14:08:03 FISCAL ACCOUNTANT CPT-40068 Bladder Scan 15:00:38 CDT CPT-TCMM Transitional Care Mgmt-Moderate 09:52:22 CDT CPT-J1030 Depo Medrol 40 mg (Methyl Prednisolone Acetate) 10:55: 18 CDT CPT-J1100 Decadron 4mg (Dexamethasone) 10:55:18 CDT CPT-26774 Abx/Therapy Injection 10:55:18 CDT CPT-J1030 Depo Medrol 40 mg (Methyl Prednisolone Acetate) 10:22: 32 CDT CPT-J1100 Decadron 4mg (Dexamethasone) 10:22:32 CDT CPT-41369 Postop F/U Visit 14:37:13 CDT CPT-87096 Ankle Complete - Min 3V 17:11:58 CDT CPT-81656 Foot comp min 3V 17:11:58 CDT CPT-24185 Bladder Scan 09:56:58 CDT CPT-72803 Postop F/U Visit 09:56:58 CDT CPT-02109 Cystoscopy 09:02:42 CDT CPT-11699 Bladder Scan 09:02:42 CDT CPT-16807 Abd single AP View 16:00:35 CDT CPT-49045 Administration single or combination vaccine inc oral 10 :15:43 CDT CPT-31358 Influenza split virus > age 3 10:15:43 CDT CPT-41648 Nail Avulsion 09:24:57 CDT CPT-OV Office Visit 11:15:41 CDT CPT-48245 Abx/Therapy Injection 10:51:30 CDT CPT-J3301 Kenalog 40 mg (Triamcinolone Acetonide) 10:25:12 CDT CPT-J1100 Decadron 4mg (Dexamethasone) 10:25:12 CDT CPT-84974 Anoscopy diagnostic 10:36:12 CDT CPT-OV Office Visit 15:34:31 CDT CPT-31586 Abx/Therapy Injection 08:21:15 FISCAL ACCOUNTANT CPT-J1885 Toradol 60 mg (Ketorolac) 10:46:35 FISCAL ACCOUNTANT CPT-OV Office Visit 19:51:16 FISCAL ACCOUNTANT CPT-44942 Spec Collection and Handling Fee 14:34:18 FISCAL ACCOUNTANT CPT-PV Prev. Care Visit 14:19:18 FISCAL ACCOUNTANT CPT-75768 Postop F/U Visit 14:47:51 FISCAL ACCOUNTANT CPT-99719 Postop F/U Visit 15:15:14 FISCAL ACCOUNTANT CPT-26521 Postop F/U Visit 14:41:43 CDT CPT-16752 Postop F/U Visit 15:47:46 CDT CPT-OV Office Visit 15:27:23 CDT CPT-OV Office Visit 17:20:34 CDT CPT-26834 Abx/Therapy Injection 15:05:57 CDT CPT-J1100 Decadron 8mg (Dexamethasone) 14:44:57 CDT CPT-J1040 Depo Medrol 80 mg (Methyl Prednisolone Acetate) 14:44: 57 CDT CPT-JTINJ Joint Injection 10:17:37 CDT CPT-09430 Administration 2+ single or combination vaccines inc oral 13:01:46 FISCAL ACCOUNTANT CPT-95097 Administration single or combination vaccine inc oral 13 :01:46 FISCAL ACCOUNTANT CPT-75975 Pneumovax 13:01:46 FISCAL ACCOUNTANT CPT-31420 Influenza split virus > age 3 13:01:46 FISCAL ACCOUNTANT CPT-85885 Administration single or combination vaccine inc oral 08 :56:49 CDT CPT-63099 Tdap 08:56:49 CDT
--- OUTSIDE RECORDS SUMMARY | 2017-03-21 22:21 | XMS REPORT ---
Author Author [facility] Medical Staff Organization [facility] Address [address] [place] [id number] Phone [phone] Summary purpose TRANSITION OF CARE AUTO GENERATION [...] tests and/or laboratory data RESULTS Routine Urinalysis [id number]:15:00 Result Normal Range Units Color YELLOW Clarity Clear Specific [place] 1.010 1.003-1.035 pH 6.5 4.5-8.0 Glucose NEGATIVE Bilirubin NEGATIVE Ketones NEGATIVE Protein NEGATIVE Urobilinogen 0.2 0-0.2 E.U./dL Nitrites NEGATIVE Blood NEGATIVE Leukocytes NEGATIVE WBCs No WBC's Seen RBCs 0-5 Squamous Epithelial Few Bacteria Rare Amount Chemistry [id number]:00 Result Normal Range Units Sodium 139 134-145 [...] 103/uL MPV 9.9 7.3-10.4 FL Body Fluid ::00 Result Normal Range Units pH 6.5 4.5-8.0 Radiology Results :00 Result Normal Range Units MPV 9.9 7.3-10.4 FL History of procedures No procedures [...]
--- OUTSIDE RECORDS SUMMARY | 2017-03-21 22:21 | XMS REPORT ---
Author Author [facility] [employer] [facility] Medical Staff Organization [facility] Address [address] [id number] Phone [phone] Summary purpose TRANSITION OF CARE AUTO GENERATION [...] tests and/or laboratory data RESULTS Radiology Results [id number] Bilateral Screen Digital Mammo PACs Image DATE OF EXAM: 2015 [facility] 0845-BILAT SCREEN DIG MAMMO : RADIOLOGY REPORT DATE OF SERVICE:06/04/15 HISTORY: Screening for possible malignant neoplasm BILATERAL SCREENING DIGITAL MAMMOGRAPHY WITH [facility] SECONDLOOK 7.2 - H+ 1535 HOURS Scattered fibroglandular densities are seen in the breast. Prominent axillary nodes are seen which are chronic. There is no new mass, grouped calculi or architectural distortion. IMPRESSION:ACR BI-RADS I - negative study. DO ARIS Cruz/lenny 06/04/2015 16:16: / 06/04/2015 22:52:18 cc:Dr. Evelyn Padron This document has been electronically Signed by: On: DATE OF EXAM: 2015 [facility] 0845-BILAT SCREEN DIG MAMMO : RADIOLOGY REPORT DATE OF SERVICE:06/04/15 HISTORY: Screening for possible malignant neoplasm BILATERAL SCREENING DIGITAL MAMMOGRAPHY WITH ICAD viaForensicsLOOK 7.2 - H+ 1535 HOURS Scattered fibroglandular densities are seen in the breast. Prominent axillary nodes are seen which are chronic. There is no new mass, grouped calculi or architectural distortion. IMPRESSION:ACR BI-RADS I - negative study. DO ARIS Cruz/lenny 06/04/2015 16:16:06/04/2015 22:52:18 cc:Dr. Evelyn Padron This document has been electronically Signed by: CHRIS LAFLEUR DO On: [id number] Result Amended on 2015-06-05 at 08:30:30. Previous status was PA. History of procedures Procedure Code Code Type Description Date Performed Performing Physician 18592 CPT-4 MAMMOGRAM SCREENING 06-04-2015 EVELYN PADRON 22241 CPT-4 COMP SCREEN MAMMOGRAM ADD-ON 06-04-2015 EVELYN PADRON Functional status No functional or cognitive status [...]
--- OUTSIDE RECORDS SUMMARY | 2017-03-21 22:21 | XMS REPORT | Clinical Summary ---
Author Author Admin, MARGRET Organization [employer] Address Unknown Phone Unavailable Allergies, Adverse Reactions, Alerts Allergy Name Reaction Description Start Date Severity Status Provider VALENTIN Critical Active Rodrigo Montemayorl [employer] CHLORHEXIDINE GLUCONATE tongue and gums swollen Critical Active Hoa Kabaford RMA NORFLEX Rash Critical Active Silvestrellina Frazell [employer] TRAZODONE HCL sees things Critical Active Dewayne [...] infarction, hx of 412 Active Hoa Otto [facility] Old myocardial infarction Pelvic pain 789.09 Active Yolande Lindsay MD PhD Abdominal pain, other specified site; multiple sites Edema 782.3 Active Yolande Lindsay MD PhD Edema Rash 782.1 Active Yolande Lindsay MD PhD Rash and other nonspecific skin eruption Back pain, lumbar 724.2 Active Gab Padron MD Lumbago Cough 786.2 Active Jillina Tyrel [employer] Cough 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 Jillina Frazellilian [employer] 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 Anemia 285.9 Active Gab Padron MD Anemia, unspecified Conjunctivitis 372.30 Active Jillina Tyrel [employer] Conjunctivitis, unspecified Sinusitis 473.9 Active Jillina Frazell [employer] Unspecified sinusitis (chronic) Nonspecific syndrome suggestive of viral illness 079.99 Active Rodrigo aSrah APRN Unspecified viral infection Laryngitis 464.00 Active Jillina Tyrel [employer] Acute laryngitis without mention of obstruction Abdominal [...] HEMORRHOIDS, INTERNAL, WITH BLEEDING ICD-455.2 Inactive Yolande Lnidsay MD PhD 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 Take with food IBUPROFEN 01652089598 Active Jillina Frazell [employer] Active BACTRIM DS 800-160 MG TAB 1 tab by mouth twice daily TRIMETHOPRIM-SULFAMETHOXAZOLE 91036089956 No Longer Active Gab Padron MD Active ADVAIR DISKUS 250-50 MCG/DOSE AEPB 1 puff BID FLUTICASONE- SALMETEROL 65019152088 Active Jillina Frazell [employer] Active LEVOTHYROXINE SODIUM 75 MCG TABS Take 1 tab daily LEVOTHYROXINE SODIUM 56979427498 No Longer Active Mariana FLEMING Active SYNTHROID 88 MCG ORAL TABS Take one by mouth daily LEVOTHYROXINE SODIUM 62968875961 Active Mariana FLEMING Active CHERATUSSIN AC 100-10 MG/5ML SYRP 1 tsp by mouth every 4 hours as needed for cough GUAIFENESIN-CODEINE 01487000284 No Longer Active Gab Padron MD Active POLYTRIM 36051-1.1 UNIT/ML-% SOLN 1 gtt to affected eye q3h x 7 days POLYMYXIN B-TRIMETHOPRIM 06442006851 No Longer Active Gab Padron MD Active FLUTICASONE PROPIONATE 50 MCG/ACT SUSP 1 to 2 sprays each nostril daily 04/21 FLUTICASONE PROPIONATE 18255339118 No Longer Active Gab Padron MD Active TRILEPTAL 600 MG TABS Take one 1 tablet in Am and 1 tablet at night OXCARBAZEPINE 03143820574 Active aGb Padron MD Active CEFDINIR 300 MG CAPS 1 po BID x 10 days CEFDINIR 67653826369 No Longer Active Rodrigo Sarah APRN Active CEFTIN 500 MG TAB 1 twice a day CEFUROXIME AXETIL 20448007441 No Longer Active Gab Padron MD Active AZITHROMYCIN 250 MG TABS 2 po qd x 1 day, then 1 po qd x 4 days AZITHROMYCIN 09234926005 No Longer Active Rodrigo Sarah APRN Active CLARITIN 10 MG TAB 1 tablet by mouth daily as needed for allergies LORATADINE 16836267650 Active Silvestrellnacho Sarah APRN Active OXYCODONE HCL 5 MG ORAL CAPS 1 TAB PO Q HS OXYCODONE HCL 34252649826 No Longer Active Rodrigo Sarah APRN Active NIASPAN 500 MG ORAL CR-TABS 1 pill nightly x 1 week, then 2 pills nightly x 1 week, then 3 pills nightly x 1 week, then 4 pills nightly NIACIN (ANTIHYPERLIPIDEMIC) 79713208915 No Longer Active Rodrigo Sarah APRN Active NIACIN 500 MG TABS 1 pill by mouth nightly x 1 week, then 2 pills x 1 week, then 3 pills x 1 week, then 4 pills nightly - take after evening meal, with applesauce or an apple NIACIN 42599780458 No Longer Active Yolande Lindsay MD PhD Active FISH OIL 1000 MG CAPS 3 pills daily OMEGA-3 FATTY ACIDS 61946652926 Active Yolande Lindsay MD PhD Active TRIAMCINOLONE ACETONIDE 0.1 % CREA apply bid sparingly to rash TRIAMCINOLONE ACETONIDE 59046037260 Active Yolande Lindsay MD PhD Active FUROSEMIDE 20 MG TAB 1 tablet by mouth daily FUROSEMIDE 39288520681 Active Tisha Lambert APRN Active LISINOPRIL 20 MG ORAL TABS 1 tab by mouth daily LISINOPRIL 24802855351 Active Gab Padron MD Active FUROSEMIDE 20 MG TABS 1 pill by mouth daily, for edema FUROSEMIDE 82213504140 No Longer Active Yolande Lindsay MD PhD Active ATORVASTATIN CALCIUM 10 MG TABS 1 pill by mouth daily, for cholesterol 09/06 ATORVASTATIN CALCIUM 96898029248 Active Gab Padron MD Active CALCIUM 600+D PLUS MINERALS 600-400 MG-UNIT ORAL CHEW 1 tab by mouth daily CALCIUM CARBONATE-VIT D-MIN 47007104689 No Longer Active Yolande Lindsay MD PhD Active CYCLOBENZAPRINE HCL 10 MG TABS 1 tablet by mouth three times daily as needed for muscle spasm/pain CYCLOBENZAPRINE HCL 29984124349 Active Yolande Lindsay MD PhD Active ONDANSETRON 4 MG TBDP 1 q4h PRN nausea ONDANSETRON 97621852859 Active Yolande Lindsay MD PhD Active ADULT ASPIRIN EC LOW STRENGTH 81 MG TBEC Take 1 tablet by mouth daily 2014 ASPIRIN 99922424070 No Longer Active Yolande Lindsay MD PhD Active ZOFRAN ODT 4 MG TBDP 1 pill dissolved by mouth every 4 hours if needed for nausea ONDANSETRON 88275701633 No Longer Active Yolande Lindsay MD PhD Active CEFTIN 500 MG TAB 1 twice a day CEFUROXIME AXETIL 35196431640 No Longer Active Yolande Lindsay MD PhD Active ALBUTEROL SULFATE 0.083 % NEBU SOLN one vial per nebulizer every 4-6 hours as needed ALBUTEROL SULFATE 86119359671 No Longer Active Alexis Ordaz MD Active DOXYCYCLINE HYCLATE 100 MG CAP 1 cap by mouth twice daily DOXYCYCLINE HYCLATE 38254680127 No Longer Active Yolande Lindsay MD PhD Active CYCLOBENZAPRINE HCL 10 MG TABS 1/2 - 1 tab by mouth three times daily if needed for spasms/pain CYCLOBENZAPRINE HCL 43264232319 No Longer Active Yolande Lindsay MD PhD Active AZITHROMYCIN 250 MG TABS 2 pills on day 1, then 1 pill daily x 4 days AZITHROMYCIN 49831931021 No Longer Active Yolande Lindsay MD PhD Active XOPENEX 1.25 MG/3ML NEBU 1 neb every 4 hours if needed for cough/congestion LEVALBUTEROL HCL 24466154455 No Longer Active Yolande Lindsay MD PhD Active DOXYCYCLINE HYCLATE 100 MG TAB 1 tab twice a day for 14 days 2013 DOXYCYCLINE HYCLATE 51153369197 No Longer Active Yolande Lindsay MD PhD Active PREVACID 30 MG CPDR Take 1 tablet by mouth daily-PRN LANSOPRAZOLE 90778633259 No Longer Active Yolande Lindsay MD PhD Active PA VITAMIN D-3 2000 UNIT CAPS 1 CAP PO DAILY CHOLECALCIFEROL 93239421389 No Longer Active Yolande Lindsay MD PhD Active CEFDINIR 300 MG CAPS by mouth twice a day CEFDINIR 93930852941 No Longer Active Gab Padron MD Active TOPAMAX 50 MG TABS 1 PO twice daily TOPIRAMATE 25026927620 Active Yolande Lindsay MD PhD Active AZITHROMYCIN 250 MG TABS 2 po qd x 1 day, then 1 po qd x 4 days AZITHROMYCIN 24074986234 No Longer Active Yolande Lindsay MD PhD Active DICLOFENAC SODIUM 75 MG TBEC 1 tablet by q 12 hours PRN headaches DICLOFENAC SODIUM 00172535044 No Longer Active Yolande Lindsay MD PhD Active FLONASE 50 MCG/ACT SUSP 1 spray each nostril am and hs FLUTICASONE PROPIONATE 58531428806 No Longer Active Todd Callaway MD Active ANUSOL-HC 25 MG SUPPOSITORY 1 rectally twice a day as needed for hemorrhoids HYDROCORTISONE JAYDEN (RECTAL) 52865624999 No Longer Active Yolande Lindsay MD PhD Active ANUSOL-HC 25 MG SUPPOSITORY 1 suppository rectally each evening as needed for anal fissure HYDROCORTISONE JAYDEN (RECTAL) 87949703741 No Longer Active LONNIE Iglesias Active VALIUM 5 MG TAB 1 po 30 minutes prior to your MRI DIAZEPAM 54660991807 No Longer Active LONNIE Iglesias Active METHOCARBAMOL 750 MG TABS 1 PO QID PRN METHOCARBAMOL 64176274641 No Longer Active Daphne Wetzel APRN Active NITROSTAT 0.4 MG SUBL as directed NITROGLYCERIN 49211148105 No Longer Active Rodrigo Sarah APRN Active ROBAXIN-750 750 MG TABS 2 four times a day for 3 days as needed for muscle spasm, then 1 four times a day as needed METHOCARBAMOL 60332396920 No Longer Active Rodrigo Sarah APRN Active HYDROCODONE-ACETAMINOPHEN 5-325 MG TABS 1 q 4-6 hrs prn HYDROCODONE-ACETAMINOPHEN 83743140395 No Longer Active Rodrigo Sarah APRN Active VERAPAMIL HCL CR 180 MG CR-TABS TAKE 1 TAB DAILY VERAPAMIL HCL 16725187758 No Longer Active Yolande Lindsay MD PhD Active BACTRIM DS 800-160 MG TAB 1 tab by mouth twice daily TRIMETHOPRIM-SULFAMETHOXAZOLE 85443558037 No Longer Active Yolande Lindsay MD PhD Active NEXIUM 40 MG PACK 1 by mouth daily ESOMEPRAZOLE MAGNESIUM 54048151887 No Longer Active Des Hines MD Active EPIPEN 2-CHARLETTE 0.3 MG/0.3ML OMARI as need for allergic reaction EPINEPHRINE 41558293825 Active Yolande Lindsay MD PhD Active NEXIUM 40 MG CPDR 1 PO Q D DAY ESOMEPRAZOLE MAGNESIUM 53458463046 No Longer Active Sadia Perry RN Active NEXIUM 40 MG PACK 1 by mouth daily NEXIUM 40 MG PACK ESOMEPRAZOLE MAGNESIUM Inactive VERAPAMIL HCL CR 180 MG CR-TABS TAKE 1 TAB DAILY VERAPAMIL HCL CR 180 MG CR-TABS VERAPAMIL HCL Inactive HYDROCODONE-ACETAMINOPHEN 5-325 MG TABS 1 q 4-6 hrs prn HYDROCODONE-ACETAMINOPHEN 5-325 MG TABS 405819 HYDROCODONE-ACETAMINOPHEN Inactive ROBAXIN-750 750 MG TABS 2 four times a day for 3 days as needed for muscle spasm, then 1 four times a day as needed ROBAXIN-750 750 MG TABS 190348 METHOCARBAMOL Inactive NITROSTAT 0.4 MG SUBL as directed NITROSTAT 0.4 MG SUBL NITROGLYCERIN Inactive METHOCARBAMOL 750 MG TABS 1 PO QID PRN METHOCARBAMOL 750 MG TABS 179310 METHOCARBAMOL Inactive VALIUM 5 MG TAB 1 po 30 minutes prior to your MRI VALIUM 5 MG TAB 606606 DIAZEPAM Inactive ANUSOL-HC 25 MG SUPPOSITORY 1 suppository rectally each evening as needed for anal fissure ANUSOL-HC 25 MG SUPPOSITORY 1016761 HYDROCORTISONE JAYDEN (RECTAL) Inactive ANUSOL-HC 25 MG SUPPOSITORY 1 rectally twice a day as needed for hemorrhoids ANUSOL-HC 25 MG SUPPOSITORY 4323578 HYDROCORTISONE JAYDEN (RECTAL) Inactive FLONASE 50 MCG/ACT SUSP 1 spray each nostril am and hs FLONASE 50 MCG/ACT SUSP FLUTICASONE PROPIONATE Inactive DICLOFENAC SODIUM 75 MG TBEC 1 tablet by q 12 hours PRN headaches DICLOFENAC SODIUM 75 MG TBEC 920558 DICLOFENAC SODIUM Inactive PA VITAMIN D-3 2000 UNIT CAPS 1 CAP PO DAILY PA VITAMIN D-3 2000 UNIT CAPS CHOLECALCIFEROL Inactive PREVACID 30 MG CPDR Take 1 tablet by mouth daily-PRN PREVACID 30 MG CPDR 102056 LANSOPRAZOLE Inactive DOXYCYCLINE HYCLATE 100 MG TAB 1 tab twice a day for 14 days 2013 DOXYCYCLINE HYCLATE 100 MG TAB 5610245 DOXYCYCLINE HYCLATE Inactive XOPENEX 1.25 MG/3ML NEBU 1 neb every 4 hours if needed for cough/congestion XOPENEX 1.25 MG/3ML NEBU 722119 LEVALBUTEROL HCL Inactive CYCLOBENZAPRINE HCL 10 MG TABS 1/2 - 1 tab by mouth three times daily if needed for spasms/pain CYCLOBENZAPRINE HCL 10 MG TABS 274057 CYCLOBENZAPRINE HCL Inactive ALBUTEROL SULFATE 0.083 % NEBU SOLN one vial per nebulizer every 4-6 hours as needed ALBUTEROL SULFATE 0.083 % NEBU SOLN 219948 ALBUTEROL SULFATE Inactive CEFTIN 500 MG TAB 1 twice a day CEFTIN 500 MG TAB 854458 CEFUROXIME AXETIL Inactive ZOFRAN ODT 4 MG TBDP 1 pill dissolved by mouth every 4 hours if needed for nausea ZOFRAN ODT 4 MG TBDP 847233 ONDANSETRON Inactive ADULT ASPIRIN EC LOW STRENGTH 81 MG TBEC Take 1 tablet by mouth daily 2014 ADULT ASPIRIN EC LOW STRENGTH 81 MG TBEC 838921 ASPIRIN Inactive CALCIUM 600+D PLUS MINERALS 600-400 [...] or an apple NIACIN 500 MG TABS 885805 NIACIN Inactive NIASPAN 500 MG ORAL CR-TABS 1 pill nightly x 1 week, then 2 pills nightly x 1 week, then 3 pills nightly x 1 week, then 4 pills nightly NIASPAN 500 MG ORAL CR-TABS NIACIN (ANTIHYPERLIPIDEMIC) Inactive OXYCODONE HCL 5 MG ORAL CAPS 1 TAB PO Q HS OXYCODONE HCL 5 MG ORAL CAPS 9733198 OXYCODONE HCL Inactive FLUTICASONE PROPIONATE 50 MCG/ACT SUSP 1 to 2 sprays each nostril daily 04/21 FLUTICASONE PROPIONATE 50 MCG/ACT SUSP 609878 FLUTICASONE PROPIONATE Inactive POLYTRIM 06622-8.1 UNIT/ML-% SOLN 1 gtt to affected eye q3h x 7 days POLYTRIM 20615-2.1 UNIT/ML-% SOLN 596888 POLYMYXIN B- TRIMETHOPRIM Inactive CHERATUSSIN AC 100-10 MG/5ML SYRP 1 tsp by mouth every 4 hours as needed for cough CHERATUSSIN AC 100-10 MG/5ML SYRP 489182 GUAIFENESIN-CODEINE Inactive LEVOTHYROXINE SODIUM 75 MCG TABS Take 1 tab daily LEVOTHYROXINE SODIUM 75 MCG TABS 020701 LEVOTHYROXINE SODIUM Inactive BACTRIM DS 800-160 MG TAB 1 tab by mouth twice daily BACTRIM DS 800-160 MG TAB 964480 TRIMETHOPRIM-SULFAMETHOXAZOLE Inactive AZITHROMYCIN 250 MG TABS 2 po qd x 1 day, then 1 po qd x 4 days AZITHROMYCIN 250 MG TABS 7019829 AZITHROMYCIN Inactive CEFDINIR 300 MG CAPS by mouth twice a day CEFDINIR 300 MG CAPS 20020708 CEFDINIR Inactive AZITHROMYCIN 250 MG TABS 2 pills on day 1, then 1 pill daily x 4 days AZITHROMYCIN 250 MG TABS 3096504 AZITHROMYCIN Inactive DOXYCYCLINE HYCLATE 100 MG CAP 1 cap by mouth twice daily DOXYCYCLINE HYCLATE 100 MG CAP 1189782 DOXYCYCLINE HYCLATE Inactive FUROSEMIDE 20 MG TABS 1 pill by mouth daily, for edema FUROSEMIDE 20 MG TABS 027232 FUROSEMIDE Inactive AZITHROMYCIN 250 MG TABS 2 po qd x 1 day, then 1 po qd x 4 days AZITHROMYCIN 250 MG TABS 4896924 AZITHROMYCIN Inactive CEFTIN 500 MG TAB 1 twice a day CEFTIN 500 MG TAB 590205 CEFUROXIME AXETIL Inactive CEFDINIR 300 MG CAPS 1 po BID x 10 days CEFDINIR 300 MG CAPS 20020708 CEFDINIR Inactive BACTRIM DS 800-160 MG TAB 1 tab by mouth twice daily BACTRIM DS 800-160 MG TAB 634444 TRIMETHOPRIM-SULFAMETHOXAZOLE Inactive Immunizations Vaccine Administration Date Value Standard Description Seasonal influenza vaccine, injectable, containing preservative, for > 3 years old (Afluria, FluLaval, Fluzone, Fluvirin, Fluarix, Agriflu(>=18 yo)) Fluzone (>3 yrs.) [HJH148] Influenza, seasonal, injectable influenza immunization (Flu Vax) has been administered Influenza - Unspecified Formulation [CVX88] influenza virus vaccine, unspecified formulation Seasonal influenza vaccine, injectable, containing preservative, for > 3 years old (Afluria, FluLaval, Fluzone, Fluvirin, Fluarix, Agriflu(>=18 yo)) Fluzone (>3 yrs.) [IHB517] Influenza, seasonal, injectable pneumococcal immunization administered Pneumovax 23 [CVX33] pneumococcal polysaccharide vaccine, 23 valent dT (Diphtheria and Tetanus) booster given given Td(adult) unspecified formulation Boostrix (Tetanus toxoid, reduced diphtheria toxoid and acellular pertussis vaccine, adsorbed), booster Boostrix [KQX401] tetanus toxoid, reduced diphtheria toxoid, and acellular [...] Panel - Chemistry sodium, serum 142 mmol/L 501-719 6252/06/30 potassium, serum 4.4 mmol/L 3.5-5.2 chloride, serum 108 mmol/L 98-107 carbon dioxide, venous blood 25.1 mmol/L 21.0-32.0 blood glucose 82 mg/dL 65-110 calcium, serum 9.1 mg/dL 8.5-10.1 urea nitrogen, blood 18 mg/dL 7-18 creatinine, serum 1.31 mg/dL 0.55-1.30 Lab Report: [facility] Advanced Lipid and Inlammation Panel /52641 - Chemistry cholesterol, serum 148 mg/dL 700-123 1726/09/02 HDL cholesterol, serum 55 mg/dL > OR=46 [...] (L) - Chemistry sodium, serum 145 mmol/L 483-696 3836/09/02 potassium, serum 4.6 mmol/L 3.5-5.2 chloride, serum [...] Rate - Chemistry sodium, serum 139 mmol/L 144-856 8023/03/24 carbon dioxide, venous blood 22.4 mmol/L 21.0-32.0 [...] ... - Chemistry sodium, serum 143 mmol/L 716-778 8234/05/02 carbon dioxide, venous blood 25.6 mmol/L 21.0-32.0 [...] Negative mg/dL Negative sodium, serum 142 mmol/L 231-412 3469/07/18 carbon dioxide, venous blood 27.8 mmol/L 21.0-32.0 [...] mg/dL Encounters Code Encounter Date Provider Facility CPT-94714 Level 3 Est. Patient 15:27:02 CDT Jared Og MD [facility] [place] CPT-64998 Level 4 Est. Patient 09:25:27 CDT Gab Padron MD [facility] CPT-52573 Level 3 Est. Patient 10:29:41 CDT Rodrigo Sarah APRN [facility] CPT-23844 Level 4 Est. Patient 17:51:05 CDT Gab Padron MD [facility] CPT-73542 Level 3 Est. Patient 14:18:08 CDT Gab Padron MD [facility] CPT-94721 Level 4 Est. Patient 10:18:54 CDT Gab Padron MD [facility] CPT-92248 Level 3 Est. Patient 11:30:07 CDT Rodrigo Sarah APRN [facility] CPT-19262 Level 4 Est. Patient 21:02:30 [employer] Gab Padron MD [facility]-50949 Level 3 Est. Patient 11:02:19 [employer] Gab Padron MD [facility]-96043 Level 4 Est. Patient 22:24:31 [employer] Gab Padron MD [facility]-94112 Level 3 Est. Patient 18:33:46 [employer] Gab Padron MD [facility]-37099 Level 3 Est. Patient 16:19:11 CDT Yolande Lindsay MD [facility] [place]-79537 Level 3 Est. Patient 18:59:14 CDT Yolande Lindsay MD [facility] [place]-25270 Level 4 Est. Patient 21:29:26 CDT Yolande Lindsay MD [facility]-37942 Level 3 Est. Patient 07:37:45 CDT Yolande Lindsay MD [facility]-35907 Level 3 Est. Patient 17:03:46 CDT Yolande Lindsay MD [facility]-01556 Level 4 Est. Patient 20:02:13 [employer] Yolande Lindsay MD [facility] [place]-68908 Level 3 Est. Patient 16:02:07 [employer] Alexis Ordaz MD [facility]-54183 Level 3 Est. Patient 12:41:24 [employer] Yolande Lindsay MD [facility] [place]-71771 Level 3 Est. Patient 15:41:20 [employer] Yolande Lindsay MD [facility] [place]-57784 Level 3 Est. Patient 13:20:02 [employer] Yolande Lindsay MD [facility] [place]-43231 Level 3 Est. Patient 15:00:38 CDT Jared Og MD [facility]-56625 Level 3 Est. Patient 10:22:32 CDT Yolande Lindsay MD [facility] [place]-86532 Level 3 Est. Patient 17:12:58 CDT Yolande Lindsay MD [facility] [place]-53071 Level 4 Est. Patient 13:30:58 CDT Yolande Lindsay MD [facility] [place]-31910 Level 4 New Patient 09:02:42 CDT [address] MD [facility]-66504 Level 3 Est. Patient 08:19:07 CDT Yolande Lindsay MD [facility] [place]-81801 Level 3 Est. Patient 12:00:13 [employer] Gab Padron MD [facility]-63629 Level 3 Est. Patient 16:15:23 [employer] Yolande Lindsay MD [facility] CPT-58862 Level 2 Est. Patient 19:47:15 CDT Yolande Lindsay MD [facility] [place]-95744 Level 3 Est. Patient 21:38:31 CDT Yolande Lindsay MD [facility] [place]-43803 Level 3 Est. Patient 10:25:12 CDT Adiel PERAZA [facility] CPT-97825 Level 4 Est. Patient 10:51:58 CDT Yolande Lindsay MD [facility] [place]-89538 Level 3 Est. Patient 14:04:55 [employer] Rodrigo Sarah [facility]-17687 Level 3 Est. Patient 10:46:35 [employer] Rodrigo Sarah [facility] CPT-45114 Level 3 Est. Patient 14:24:37 [employer] Yolande Lindsay MD PhD [facility] CPT-41512 Level 3 Est. Patient 17:41:58 [employer] Yolande Lindsay MD [facility] CPT-03160 Level 2 Est. Patient 22:01:41 [employer] Rodrigo Sarah [facility] CPT-90829 Level 2 Est. Patient 22:01:11 [employer] Rodrigo Sarah [facility] CPT-39653 Level 3 Est. Patient 10:12:29 [employer] Rodrigo Sarah [facility] CPT-68647 Level 3 Est. Patient 11:05:44 CDT Alexis Ordaz MD [facility] CPT-30772 Level 3 Est. Patient 14:57:20 CDT Yolande Lindsay MD [facility] CPT-86017 Level 3 Est. Patient 14:40:57 CDT Yolande Lindsay MD [facility] CPT-73313 Level 3 Est. Patient 20:55:40 CDT Yolande Lindsay MD [facility] CPT-48381 Level 3 Est. Patient 12:42:38 W[employer] Yolande Lindsay MD [facility] CPT-86126 Level 3 Est. Patient 11:54:49 [employer] Des Hines MD [facility] CPT-12591 Level 3 Est. Patient 17:06:38 CDT Dewayne PERAZA [facility] Procedures Code Procedure Name Date Entry Date Standard Description CPT-34834 Abd single AP View - XRAY USE ONLY 11:16:17 CDT CPT-35266 T spine AP/ Lat - XRAY USE ONLY 09:34:21 CDT CPT-07909 Chest 2V Frontal and Lat - XRAY USE ONLY 10:48:51 CDT CPT-48734 LS spine comp w obliq 13:28:00 W[employer] CPT-J1040 Depo Medrol 80 mg (Methyl Prednisolone Acetate) 10:51: 28 [employer]ER [employer] CPT-J1100 Decadron 8mg (Dexamethasone) 10:51:28 W[employer] CPT-29844 Abx/Therapy Injection 10:51:28 WASHER CARCASS CPT-J1100 Decadron 8mg (Dexamethasone) 21:02:30 WASHER CARCASS CPT-J1040 Depo Medrol 80 mg (Methyl Prednisolone Acetate) 21:02: 30 WASHER CARCASS [id number] Event Monitor - MC Transmission 09:12:32 CDT 08/06 [id number] Event Monitor - MC review and interp 09:12:32 CDT [id number] Event Monitor - MC recording 09:12:32 CDT CPT-10544 EKG Trac and Interp 16:50:22 CDT CPT-J1030 Depo Medrol 40 mg (Methyl Prednisolone Acetate) 17:05: 54 CDT CPT-J1100 Decadron 4mg (Dexamethasone) 17:05:54 CDT CPT-96997 Abx/Therapy Injection 17:05:54 CDT CPT-J1100 Decadron 4mg (Dexamethasone) 16:55:28 CDT CPT-J1030 Depo Medrol 40 mg (Methyl Prednisolone Acetate) 16:55: 28 CDT CPT-33763 Ankle Complete - Min 3V 15:58:50 CDT CPT-86584 Knee 3V 15:58:50 CDT CPT-04515 Hip comp min 2V 15:58:50 CDT CPT-J2270 Morphine Sulfate 10 mg 14:25:44 WASHER CARCASS CPT-J2550 Phenergan 12.5 mg (Promethazine) 14:25:44 WASHER CARCASS CPT-16865 Abx/Therapy Injection 14:25:44 WASHER CARCASS CPT-J2550 Phenergan 12.5 mg (Promethazine) 14:08:03 WASHER CARCASS CPT-J2270 Morphine Sulfate 10 mg 14:08:03 WASHER CARCASS CPT-82331 Bladder Scan 15:00:38 CDT CPT-TCMM Transitional Care Mgmt-Moderate 09:52:22 CDT CPT-J1030 Depo Medrol 40 mg (Methyl Prednisolone Acetate) 10:55: 18 CDT CPT-J1100 Decadron 4mg (Dexamethasone) 10:55:18 CDT CPT-72158 Abx/Therapy Injection 10:55:18 CDT CPT-J1030 Depo Medrol 40 mg (Methyl Prednisolone Acetate) 10:22: 32 CDT CPT-J1100 Decadron 4mg (Dexamethasone) 10:22:32 CDT CPT-05296 Postop F/U Visit 14:37:13 CDT CPT-78983 Ankle Complete - Min 3V 17:11:58 CDT CPT-76416 Foot comp min 3V 17:11:58 CDT CPT-88449 Bladder Scan 09:56:58 CDT CPT-95748 Postop F/U Visit 09:56:58 CDT CPT-60567 Cystoscopy 09:02:42 CDT CPT-48040 Bladder Scan 09:02:42 CDT CPT-78906 Abd single AP View 16:00:35 CDT CPT-12446 Administration single or combination vaccine inc oral 10 :15:43 CDT CPT-79645 Influenza split virus > age 3 10:15:43 CDT CPT-09726 Nail Avulsion 09:24:57 CDT CPT-OV Office Visit 11:15:41 CDT CPT-81975 Abx/Therapy Injection 10:51:30 CDT CPT-J3301 Kenalog 40 mg (Triamcinolone Acetonide) 10:25:12 CDT CPT-J1100 Decadron 4mg (Dexamethasone) 10:25:12 CDT CPT-06657 Anoscopy diagnostic 10:36:12 CDT CPT-OV Office Visit 15:34:31 CDT CPT-54338 Abx/Therapy Injection 08:21:15 W[employer]ER [employer] CPT-J1885 Toradol 60 mg (Ketorolac) 10:46:35 WASHER CARCASS CPT-OV Office Visit 19:51:16 W[employer]ER [employer] CPT-70948 Spec Collection and Handling Fee 14:34:18 [employer]ER [employer] CPT-PV Prev. Care Visit 14:19:18 WASHER CARC[employer] CPT-66070 Postop F/U Visit 14:47:51 WASHER CARCASS CPT-68915 Postop F/U Visit 15:15:14 WASHER [employer]CASS CPT-00533 Postop F/U Visit 14:41:43 CDT CPT-39725 Postop F/U Visit 15:47:46 CDT CPT-OV Office Visit 15:27:23 CDT CPT-OV Office Visit 17:20:34 CDT CPT-03226 Abx/Therapy Injection 15:05:57 CDT CPT-J1100 Decadron 8mg (Dexamethasone) 14:44:57 CDT CPT-J1040 Depo Medrol 80 mg (Methyl Prednisolone Acetate) 14:44: 57 CDT CPT-JTINJ Joint Injection 10:17:37 CDT CPT-31309 Administration 2+ single or combination vaccines inc oral 13:01:46 [employer] CPT-03213 Administration single or combination vaccine inc oral 13 :01:46 [employer] CPT-23963 Pneumovax 13:01:46 W[employer] CPT-37639 Influenza split virus > age 3 13:01:46 WASHER [employer] CPT-53459 Administration single or combination vaccine inc oral 08 :56:49 CDT CPT-57678 Tdap 08:56:49 CDT
--- OUTSIDE RECORDS SUMMARY | 2017-03-21 22:23 | XMS REPORT | Clinical Summary ---
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 Critical Active Dewayne [...] Jared Og MD Rectocele Hematuria 599.70 Resolved Yoladne Lindsay MD PhD Hematuria, unspecified Health maintenance [...] pill by mouth daily, for edema FUROSEMIDE 87806706431 Active Yolande Lindsay MD PhD Active FISH OIL 1000 MG CAPS 1 pill daily x 1 week, then 2 pills daily x 1 week, then 3 pills daily x 1 week, then 4 pills daily OMEGA-3 FATTY ACIDS 18994193092 Active Yolande Lindsay MD PhD Active NIACIN 500 MG TABS 1 pill by mouth nightly x 1 week, then 2 pills x 1 week, then 3 pills x 1 week, then 4 pills nightly - take after evening meal, with applesauce or an apple NIACIN 88462821092 Active Yolande Lindsay MD PhD Active ATORVASTATIN CALCIUM 10 MG TABS 1 pill by mouth daily, for cholesterol 09/06 ATORVASTATIN CALCIUM 95791339204 Active Yolande Lindsay MD PhD Active CALCIUM 600+D PLUS MINERALS 600-400 MG-UNIT ORAL CHEW 1 tab by mouth daily CALCIUM CARBONATE-VIT D-MIN 60840757745 No Longer Active Yolande Lindsay MD PhD Active CYCLOBENZAPRINE HCL 10 MG TABS 1 tablet by mouth three times daily as needed for muscle spasm/pain CYCLOBENZAPRINE HCL 65228647812 Active Yolande Lindsay MD PhD Active ONDANSETRON 4 MG TBDP 1 q4h PRN nausea ONDANSETRON 76768359381 Active Yolande Lindsay MD PhD Active ADULT ASPIRIN EC LOW STRENGTH 81 MG TBEC Take 1 tablet by mouth daily 2014 ASPIRIN 08872973547 No Longer Active Yolande Lindsay MD PhD Active ZOFRAN ODT 4 MG TBDP 1 pill dissolved by mouth every 4 hours if needed for nausea ONDANSETRON 37950268063 No Longer Active Yolande Lindsya MD PhD Active CEFTIN 500 MG TAB 1 twice a day CEFUROXIME AXETIL 74169771912 No Longer Active Yolande Lindsay MD PhD Active ALBUTEROL SULFATE 0.083 % NEBU SOLN one vial per nebulizer every 4-6 hours as needed ALBUTEROL SULFATE 10933546081 No Longer Active Alexis Ordaz MD Active DOXYCYCLINE HYCLATE 100 MG CAP 1 cap by mouth twice daily DOXYCYCLINE HYCLATE 33213785684 No Longer Active Yolande Lindsay MD PhD Active CYCLOBENZAPRINE HCL 10 MG TABS 1/2 - 1 tab by mouth three times daily if needed for spasms/pain CYCLOBENZAPRINE HCL 69730910346 No Longer Active Yolande Lindsay MD PhD Active TRILEPTAL 600 MG TABS Take one 1/2 tablet in Am and 1 tablet at night OXCARBAZEPINE 99630125380 Active Yolande Lindsay MD PhD Active AZITHROMYCIN 250 MG TABS 2 pills on day 1, then 1 pill daily x 4 days AZITHROMYCIN 01662912659 No Longer Active Yolande Lindsay MD PhD Active XOPENEX 1.25 MG/3ML NEBU 1 neb every 4 hours if needed for cough/congestion LEVALBUTEROL HCL 35959562582 No Longer Active Yolande Lindsay MD PhD Active DOXYCYCLINE HYCLATE 100 MG TAB 1 tab twice a day for 14 days 2013 DOXYCYCLINE HYCLATE 51856705814 No Longer Active Yolande Lindsay MD PhD Active LEVOTHYROXINE SODIUM 75 MCG TABS Take 1 tab daily LEVOTHYROXINE SODIUM 99873867411 Active Yolande Lindsay MD PhD Active PREVACID 30 MG CPDR Take 1 tablet by mouth daily-PRN LANSOPRAZOLE 54950134506 No Longer Active Yolande Lindsay MD PhD Active PA VITAMIN D-3 2000 UNIT CAPS 1 CAP PO DAILY CHOLECALCIFEROL 82311667039 No Longer Active Yolande Lindsay MD PhD Active CEFDINIR 300 MG CAPS by mouth twice a day CEFDINIR 04510535121 No Longer Active Gab Padron MD Active TOPAMAX 50 MG TABS 1 PO twice daily TOPIRAMATE 66549624715 Active Yolande Lindsay MD PhD Active AZITHROMYCIN 250 MG TABS 2 po qd x 1 day, then 1 po qd x 4 days AZITHROMYCIN 23989321352 No Longer Active Yolande Lindsay MD PhD Active DICLOFENAC SODIUM 75 MG TBEC 1 tablet by q 12 hours PRN headaches DICLOFENAC SODIUM 92305809494 No Longer Active Yolande Lindsay MD PhD Active FLONASE 50 MCG/ACT SUSP 1 spray each nostril am and hs FLUTICASONE PROPIONATE 57549246494 No Longer Active Todd Callaway MD Active ANUSOL-HC 25 MG SUPPOSITORY 1 rectally twice a day as needed for hemorrhoids HYDROCORTISONE JAYDEN (RECTAL) 48520874414 No Longer Active Yolande Lindsay MD PhD Active ANUSOL-HC 25 MG SUPPOSITORY 1 suppository rectally each evening as needed for anal fissure HYDROCORTISONE JAYDEN (RECTAL) 89740290437 No Longer Active LONNIE Iglesias Active VALIUM 5 MG TAB 1 po 30 minutes prior to your MRI DIAZEPAM 26230797562 No Longer Active LONNIE Iglesias Active METHOCARBAMOL 750 MG TABS 1 PO QID PRN METHOCARBAMOL 74450271941 No Longer Active Daphne Wetzel APRN Active NITROSTAT 0.4 MG SUBL as directed NITROGLYCERIN 28676621636 No Longer Active Rodrigo Sarah APRN Active ROBAXIN-750 750 MG TABS 2 four times a day for 3 days as needed for muscle spasm, then 1 four times a day as needed METHOCARBAMOL 79822797065 No Longer Active Rodrigo Sarah APRN Active HYDROCODONE-ACETAMINOPHEN 5-325 MG TABS 1 q 4-6 hrs prn HYDROCODONE-ACETAMINOPHEN 45395306066 No Longer Active Rodrigo Sarah APRN Active VERAPAMIL HCL CR 180 MG CR-TABS TAKE 1 TAB DAILY VERAPAMIL HCL 07229404051 No Longer Active Yolande Lindsay MD PhD Active BACTRIM DS 800-160 MG TAB 1 tab by mouth twice daily TRIMETHOPRIM-SULFAMETHOXAZOLE 44921870599 No Longer Active Yolande Lindsay MD PhD Active NEXIUM 40 MG PACK 1 by mouth daily ESOMEPRAZOLE MAGNESIUM 78927858457 No Longer Active Des Hines MD Active EPIPEN 2-CHARLETTE 0.3 MG/0.3ML OMARI as need for allergic reaction EPINEPHRINE 68183628552 Active Yolande Lindsay MD PhD Active LISINOPRIL 10 MG TABS 1 PO Q D FOR BP LISINOPRIL 62939324451 Active Yolande Lindsay MD PhD Active NEXIUM 40 MG CPDR 1 PO Q D DAY ESOMEPRAZOLE MAGNESIUM 89304790950 No Longer Active Sadia Perry RN Active NEXIUM 40 MG PACK 1 by mouth daily NEXIUM 40 MG PACK ESOMEPRAZOLE MAGNESIUM Inactive VERAPAMIL HCL CR 180 MG CR-TABS TAKE 1 TAB DAILY VERAPAMIL HCL CR 180 MG CR-TABS VERAPAMIL HCL Inactive HYDROCODONE-ACETAMINOPHEN 5-325 MG TABS 1 q 4-6 hrs prn HYDROCODONE-ACETAMINOPHEN 5-325 MG TABS 512503 HYDROCODONE-ACETAMINOPHEN Inactive ROBAXIN-750 750 MG TABS 2 four times a day for 3 days as needed for muscle spasm, then 1 four times a day as needed ROBAXIN-750 750 MG TABS 322071 METHOCARBAMOL Inactive NITROSTAT 0.4 MG SUBL as directed NITROSTAT 0.4 MG SUBL NITROGLYCERIN Inactive METHOCARBAMOL 750 MG TABS 1 PO QID PRN METHOCARBAMOL 750 MG TABS 729168 METHOCARBAMOL Inactive VALIUM 5 MG TAB 1 po 30 minutes prior to your MRI VALIUM 5 MG TAB 687965 DIAZEPAM Inactive ANUSOL-HC 25 MG SUPPOSITORY 1 suppository rectally each evening as needed for anal fissure ANUSOL-HC 25 MG SUPPOSITORY 4145056 HYDROCORTISONE JAYDEN (RECTAL) Inactive ANUSOL-HC 25 MG SUPPOSITORY 1 rectally twice a day as needed for hemorrhoids ANUSOL-HC 25 MG SUPPOSITORY 6068736 HYDROCORTISONE JAYDEN (RECTAL) Inactive FLONASE 50 MCG/ACT SUSP 1 spray each nostril am and hs FLONASE 50 MCG/ACT SUSP 184356 FLUTICASONE PROPIONATE Inactive DICLOFENAC SODIUM 75 MG TBEC 1 tablet by q 12 hours PRN headaches DICLOFENAC SODIUM 75 MG TBEC 906935 DICLOFENAC SODIUM Inactive PA VITAMIN D-3 2000 UNIT CAPS 1 CAP PO DAILY PA VITAMIN D-3 2000 UNIT CAPS CHOLECALCIFEROL Inactive PREVACID 30 MG CPDR Take 1 tablet by mouth daily-PRN PREVACID 30 MG CPDR 153044 LANSOPRAZOLE Inactive DOXYCYCLINE HYCLATE 100 MG TAB 1 tab twice a day for 14 days 2013 DOXYCYCLINE HYCLATE 100 MG TAB 958026 DOXYCYCLINE HYCLATE Inactive XOPENEX 1.25 MG/3ML NEBU 1 neb every 4 hours if needed for cough/congestion XOPENEX 1.25 MG/3ML NEBU 647370 LEVALBUTEROL HCL Inactive CYCLOBENZAPRINE HCL 10 MG TABS 1/2 - 1 tab by mouth three times daily if needed for spasms/pain CYCLOBENZAPRINE HCL 10 MG TABS 689266 CYCLOBENZAPRINE HCL Inactive ALBUTEROL SULFATE 0.083 % NEBU SOLN one vial per nebulizer every 4-6 hours as needed ALBUTEROL SULFATE 0.083 % NEBU SOLN 194393 ALBUTEROL SULFATE Inactive CEFTIN 500 MG TAB 1 twice a day CEFTIN 500 MG TAB 150934 CEFUROXIME AXETIL Inactive ZOFRAN ODT 4 MG TBDP 1 pill dissolved by mouth every 4 hours if needed for nausea ZOFRAN ODT 4 MG TBDP 243987 ONDANSETRON Inactive ADULT ASPIRIN EC LOW STRENGTH 81 MG TBEC Take 1 tablet by mouth daily 2014 ADULT ASPIRIN EC LOW STRENGTH 81 MG TBEC 087819 ASPIRIN Inactive CALCIUM 600+D PLUS MINERALS 600-400 [...] x 4 days AZITHROMYCIN 250 MG TABS 0722099 AZITHROMYCIN Inactive CEFDINIR 300 MG CAPS by mouth twice a day CEFDINIR 300 MG CAPS 20020708 CEFDINIR Inactive AZITHROMYCIN 250 MG TABS 2 pills on day 1, then 1 pill daily x 4 days AZITHROMYCIN 250 MG TABS 9298321 AZITHROMYCIN Inactive DOXYCYCLINE HYCLATE 100 MG CAP 1 cap by mouth twice daily DOXYCYCLINE HYCLATE 100 MG CAP 19890510 DOXYCYCLINE HYCLATE Inactive Immunizations Vaccine Administration Date Value Standard Description Seasonal influenza vaccine, injectable, containing preservative, for > 3 years old (Afluria, FluLaval, Fluzone, Fluvirin, Fluarix, Agriflu(>=18 yo)) Fluzone (>3 yrs.) [[id number]] Influenza, seasonal, injectable influenza immunization (Flu Vax) has been administered Influenza - Unspecified Formulation [CVX88] influenza virus vaccine, unspecified formulation Seasonal influenza vaccine, injectable, containing preservative, for > 3 years old (Afluria, FluLaval, Fluzone, Fluvirin, Fluarix, Agriflu(>=18 yo)) Fluzone (>3 yrs.) [EXH099] Influenza, seasonal, injectable pneumococcal immunization administered Pneumovax 23 [CVX33] pneumococcal polysaccharide vaccine, 23 valent dT (Diphtheria and Tetanus) booster given given Td(adult) unspecified formulation Boostrix (Tetanus toxoid, reduced diphtheria toxoid and acellular pertussis vaccine, adsorbed), booster Boostrix [XUQ777] tetanus toxoid, reduced diphtheria toxoid, and acellular [...] Cardio IQ Advanced Lipid and Inlammation Panel /07653 - Chemistry cholesterol, serum 198 mg/dL [phone]/04/30 HDL cholesterol, serum 65 mg/dL > OR=46 triglyceride, serum, fasting 82 mg/dL LDL cholesterol, serum 117 mg/dL cholesterol/HDL ratio, serum 3.0 calc < OR=5.0 Lab Report: CBC W/DIFF, Basic Metabolic Panel - Chemistry sodium, serum 144 mmol/L [phone]/01/21 potassium, serum 4.2 mmol/L 3.5-5.2 chloride, serum [...] Panel - Chemistry sodium, serum 144 mmol/L [phone]/12/15 potassium, serum 5.4 mmol/L 3.5-5.2 chloride, serum [...] UA - Chemistry sodium, serum 143 mmol/L 554-570 4327/10/24 potassium, serum 3.9 mmol/L 3.5-5.2 chloride, serum [...] 51 mg/dL 30-200 cholesterol, serum 173 mg/dL 406-767 3674/04/28 HDL cholesterol, serum 63 mg/dL 32-96 LDL [...] 0-19 Encounters Code Encounter Date Provider Facility CPT-95589 Level 4 Est. Patient 21:29:26 CDT Yolande Lindsay MD [facility] CPT-81896 Level 3 Est. Patient 07:37:45 CDT Yolande Lindsay MD [facility] CPT-86274 Level 3 Est. Patient 17:03:46 CDT Yolande Lindsay MD [facility] CPT-24704 Level 4 Est. Patient 20:02:13 COMPUTER CONSOLE OPERATOR Yolande Lindsay MD PhD [facility] CPT-59320 Level 3 Est. Patient 16:02:07 COMPUTER CONSOLE OPERATOR Alexis Ordaz MD [facility] CPT-42023 Level 3 Est. Patient 12:41:24 COMPUTER CONSOLE OPERATOR Yolande Lindsay MD PhD [facility] CPT-43586 Level 3 Est. Patient 15:41:20 COMPUTER CONSOLE OPERATOR Yolande Lindsay MD [facility] CPT-38203 Level 3 Est. Patient 13:20:02 COMPUTER CONSOLE OPERATOR Yolande Lindsay MD PhD [facility] CPT-88562 Level 3 Est. Patient 15:00:38 CDT Jared Og MD [facility]-41835 Level 3 Est. Patient 10:22:32 CDT Yolande Lindsay MD [facility][note 3]-66837 Level 3 Est. Patient 17:12:58 CDT Yolande Lindsay MD [facility][note 3]-34529 Level 4 Est. Patient 13:30:58 CDT Yolande Lindsay MD [facility][note 3]-89311 Level 4 New Patient 09:02:42 CDT Jared Og MD [facility]-40505 Level 3 Est. Patient 08:19:07 CDT Yolande Lindsay MD [facility][note 3]-26720 Level 3 Est. Patient 12:00:13 COMPUTER CONSOLE OPERATOR Gab Padron MD [facility]-67719 Level 3 Est. Patient 16:15:23 COMPUTER CONSOLE OPERATOR Yolande Lindsay MD [facility][note 3]-03660 Level 2 Est. Patient 19:47:15 CDT Yolande iLndsay MD [facility][note 3]-71042 Level 3 Est. Patient 21:38:31 CDT Yolande Lindsay MD [facility][note 3]-50737 Level 3 Est. Patient 10:25:12 CDT Adiel PERAZA [facility]-59272 Level 4 Est. Patient 10:51:58 CDT Yolande Lindsay MD [facility][note 3]-44314 Level 3 Est. Patient 14:04:55 COMPUTER CONSOLE OPERATOR Rodrigo Sarah [facility]-62650 Level 3 Est. Patient 10:46:35 COMPUTER CONSOLE OPERATOR Rodrigo Sarah [facility]-98064 Level 3 Est. Patient 14:24:37 COMPUTER CONSOLE OPERATOR Yolande Lindsay MD [facility] CPT-24753 Level 3 Est. Patient 17:41:58 COMPUTER CONSOLE OPERATOR Yolande Lindsay MD [facility] CPT-52258 Level 2 Est. Patient 22:01:41 COMPUTER CONSOLE OPERATOR Rodrigo Sarah [facility] CPT-33390 Level 2 Est. Patient 22:01:11 COMPUTER CONSOLE OPERATOR Rodrigo Sarah [facility] CPT-92805 Level 3 Est. Patient 10:12:29 COMPUTER CONSOLE OPERATOR Rodrigo Sarah [facility] CPT-95046 Level 3 Est. Patient 11:05:44 CDT Alexis Ordaz MD [facility] CPT-29105 Level 3 Est. Patient 14:57:20 CDT Yolande Lindsay MD [facility] CPT-32439 Level 3 Est. Patient 14:40:57 CDT Yolande Lindsay MD [facility] CPT-87396 Level 3 Est. Patient 20:55:40 CDT Yolande Lindsay MD [facility] CPT-93577 Level 3 Est. Patient 12:42:38 COMPUTER CONSOLE OPERATOR Yolande Lindsay MD [facility] CPT-09199 Level 3 Est. Patient 11:54:49 COMPUTER CONSOLE OPERATOR Des Hines MD [facility] CPT-71163 Level 3 Est. Patient 17:06:38 CDT Dewayne PERAZA [facility] Procedures Code Procedure Name Date Entry Date Standard Description [id number] Event Monitor - MC Transmission 09:12:32 CDT 08/06 [id number] Event Monitor - MC review and interp 09:12:32 CDT [id number] Event Monitor - MC recording 09:12:32 CDT CPT-02409 EKG Trac and Interp 16:50:22 CDT CPT-J1030 Depo Medrol 40 mg (Methyl Prednisolone Acetate) 17:05: 54 CDT CPT-J1100 Decadron 4mg (Dexamethasone) 17:05:54 CDT CPT-17671 Abx/Therapy Injection 17:05:54 CDT CPT-J1100 Decadron 4mg (Dexamethasone) 16:55:28 CDT CPT-J1030 Depo Medrol 40 mg (Methyl Prednisolone Acetate) 16:55: 28 CDT CPT-57903 Ankle Complete - Min 3V 15:58:50 CDT CPT-51138 Knee 3V 15:58:50 CDT CPT-99247 Hip comp min 2V 15:58:50 CDT CPT-J2270 Morphine Sulfate 10 mg 14:25:44 COMPUTER CONSOLE OPERATOR CPT-J2550 Phenergan 12.5 mg (Promethazine) 14:25:44 COMPUTER CONSOLE OPERATOR CPT-31985 Abx/Therapy Injection 14:25:44 COMPUTER CONSOLE OPERATOR CPT-J2550 Phenergan 12.5 mg (Promethazine) 14:08:03 COMPUTER CONSOLE OPERATOR CPT-J2270 Morphine Sulfate 10 mg 14:08:03 COMPUTER CONSOLE OPERATOR CPT-03353 Bladder Scan 15:00:38 CDT CPT-TCMM Transitional Care Mgmt-Moderate 09:52:22 CDT CPT-J1030 Depo Medrol 40 mg (Methyl Prednisolone Acetate) 10:55: 18 CDT CPT-J1100 Decadron 4mg (Dexamethasone) 10:55:18 CDT CPT-01572 Abx/Therapy Injection 10:55:18 CDT CPT-J1030 Depo Medrol 40 mg (Methyl Prednisolone Acetate) 10:22: 32 CDT CPT-J1100 Decadron 4mg (Dexamethasone) 10:22:32 CDT CPT-58844 Postop F/U Visit 14:37:13 CDT CPT-08163 Ankle Complete - Min 3V 17:11:58 CDT CPT-71728 Foot comp min 3V 17:11:58 CDT CPT-52503 Bladder Scan 09:56:58 CDT CPT-11318 Postop F/U Visit 09:56:58 CDT CPT-23146 Cystoscopy 09:02:42 CDT CPT-81771 Bladder Scan 09:02:42 CDT CPT-19767 Abd single AP View 16:00:35 CDT CPT-26343 Administration single or combination vaccine inc oral 10 :15:43 CDT CPT-53697 Influenza split virus > age 3 10:15:43 CDT CPT-52263 Nail Avulsion 09:24:57 CDT CPT-OV Office Visit 11:15:41 CDT CPT-90512 Abx/Therapy Injection 10:51:30 CDT CPT-J3301 Kenalog 40 mg (Triamcinolone Acetonide) 10:25:12 CDT CPT-J1100 Decadron 4mg (Dexamethasone) 10:25:12 CDT CPT-03375 Anoscopy diagnostic 10:36:12 CDT CPT-OV Office Visit 15:34:31 CDT CPT-77443 Abx/Therapy Injection 08:21:15 COMPUTER CONSOLE OPERATOR CPT-J1885 Toradol 60 mg (Ketorolac) 10:46:35 COMPUTER CONSOLE OPERATOR CPT-OV Office Visit 19:51:16 COMPUTER CONSOLE OPERATOR CPT-66045 Spec Collection and Handling Fee 14:34:18 COMPUTER CONSOLE OPERATOR CPT-PV Prev. Care Visit 14:19:18 COMPUTER CONSOLE OPERATOR CPT-20667 Postop F/U Visit 14:47:51 COMPUTER CONSOLE OPERATOR CPT-82435 Postop F/U Visit 15:15:14 COMPUTER CONSOLE OPERATOR CPT-27695 Postop F/U Visit 14:41:43 CDT CPT-58360 Postop F/U Visit 15:47:46 CDT CPT-OV Office Visit 15:27:23 CDT CPT-OV Office Visit 17:20:34 CDT CPT-58140 Abx/Therapy Injection 15:05:57 CDT CPT-J1100 Decadron 8mg (Dexamethasone) 14:44:57 CDT CPT-J1040 Depo Medrol 80 mg (Methyl Prednisolone Acetate) 14:44: 57 CDT CPT-JTINJ Joint Injection 10:17:37 CDT CPT-58455 Administration 2+ single or combination vaccines inc oral 13:01:46 COMPUTER CONSOLE OPERATOR CPT-36371 Administration single or combination vaccine inc oral 13 :01:46 COMPUTER CONSOLE OPERATOR CPT-65819 Pneumovax 13:01:46 COMPUTER CONSOLE OPERATOR CPT-59199 Influenza split virus > age 3 13:01:46 COMPUTER CONSOLE OPERATOR CPT-65197 Administration single or combination vaccine inc oral 08 :56:49 CDT CPT-71715 Tdap 08:56:49 CDT
--- OUTSIDE RECORDS SUMMARY | 2017-03-21 22:25 | XMS REPORT | Clinical Summary ---
Author Author Admin, MARGRET Organization [facility] Address Unknown Phone Unavailable Allergies, Adverse Reactions, Alerts Allergy Name Reaction Description Start Date Severity Status Provider VALENTIN Critical Active Rodrigo Montemayorl MANAGER HEMATOLOGY CHLORHEXIDINE GLUCONATE tongue and gums swollen Critical Active Hoa Clarita RMA NORFLEX Rash Critical Active Silvestrellina Frazell MANAGER HEMATOLOGY TRAZODONE HCL sees things Critical Active Dewayne [...] myositis, unspecified FISSURE, ANAL 565.0 Resolved Yolande iLndsay MD PhD Anal fissure CHEST PAIN, UNSPECIFIED [...] infarction, hx of 412 Active Hoa Otto [facility] Old myocardial infarction Pelvic pain 789.09 Active Yolande Lindsay MD PhD Abdominal pain, other specified site; multiple sites Edema 782.3 Active Yolande Lindsay MD PhD Edema Rash 782.1 Active Yolande Lindsay MD PhD Rash and other nonspecific skin eruption Back pain, lumbar 724.2 Active Gab Padron MD Lumbago Cough 786.2 Active Jillina Tyrel MANAGER HEMATOLOGY Cough 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 Jillina Frazellilian MANAGER HEMATOLOGY 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 Anemia 285.9 Active Gab Padron MD Anemia, unspecified Conjunctivitis 372.30 Active Jillina Tyrel MANAGER HEMATOLOGY Conjunctivitis, unspecified Sinusitis 473.9 Active Jillina Frazell MANAGER HEMATOLOGY Unspecified sinusitis (chronic) FOOT PAIN, RIGHT ICD-729.5 [...] TABS Take 1 tab daily LEVOTHYROXINE SODIUM 59989114451 No Longer Active Mariana FLEMING Active SYNTHROID 88 MCG ORAL TABS Take one by mouth daily LEVOTHYROXINE SODIUM 13970454901 Active Mariana FLEMING Active CHERATUSSIN AC 100-10 MG/5ML SYRP 1 tsp by mouth every 4 hours as needed for cough GUAIFENESIN-CODEINE 67405564188 No Longer Active Gab Padron MD Active POLYTRIM 96855-4.1 UNIT/ML-% SOLN 1 gtt to affected eye q3h x 7 days POLYMYXIN B-TRIMETHOPRIM 80621463659 No Longer Active Gab Padron MD Active FLUTICASONE PROPIONATE 50 MCG/ACT SUSP 1 to 2 sprays each nostril daily 04/21 FLUTICASONE PROPIONATE 07216224506 No Longer Active Gab Padron MD Active TRILEPTAL 600 MG TABS Take one 1 tablet in Am and 1 tablet at night OXCARBAZEPINE 60037851363 Active Gab Padron MD Active CEFDINIR 300 MG CAPS 1 po BID x 10 days CEFDINIR 25779554350 No Longer Active Rodrigo Sarah APRN Active CEFTIN 500 MG TAB 1 twice a day CEFUROXIME AXETIL 92632211967 No Longer Active Gab Padron MD Active AZITHROMYCIN 250 MG TABS 2 po qd x 1 day, then 1 po qd x 4 days AZITHROMYCIN 90390596179 No Longer Active Rodrigo Sarah APRN Active CLARITIN 10 MG TAB 1 tablet by mouth daily as needed for allergies LORATADINE 03283532256 Active Rodrigo Sarah APRN Active OXYCODONE HCL 5 MG ORAL CAPS 1 TAB PO Q HS OXYCODONE HCL 56391319247 No Longer Active Rodrigo Sarah APRN Active NIASPAN 500 MG ORAL CR-TABS 1 pill nightly x 1 week, then 2 pills nightly x 1 week, then 3 pills nightly x 1 week, then 4 pills nightly NIACIN (ANTIHYPERLIPIDEMIC) 45275157129 No Longer Active Rodrigo Sarah APRN Active NIACIN 500 MG TABS 1 pill by mouth nightly x 1 week, then 2 pills x 1 week, then 3 pills x 1 week, then 4 pills nightly - take after evening meal, with applesauce or an apple NIACIN 32220209946 No Longer Active Yolande Lindsay MD PhD Active FISH OIL 1000 MG CAPS 3 pills daily OMEGA-3 FATTY ACIDS 88027282841 Active Yolande Lindsay MD PhD Active TRIAMCINOLONE ACETONIDE 0.1 % CREA apply bid sparingly to rash TRIAMCINOLONE ACETONIDE 70896282922 Active Yolande Lindsay MD PhD Active FUROSEMIDE 20 MG TAB 1 tablet by mouth daily FUROSEMIDE 70975573222 Active Yolande Lindsay MD PhD Active LISINOPRIL 20 MG ORAL TABS 1 tab by mouth daily LISINOPRIL 33377249624 Active Gab Padron MD Active FUROSEMIDE 20 MG TABS 1 pill by mouth daily, for edema FUROSEMIDE 57425624593 No Longer Active Yolande Lindsay MD PhD Active ATORVASTATIN CALCIUM 10 MG TABS 1 pill by mouth daily, for cholesterol 09/06 ATORVASTATIN CALCIUM 71172639730 Active Yolande Lindsay MD PhD Active CALCIUM 600+D PLUS MINERALS 600-400 MG-UNIT ORAL CHEW 1 tab by mouth daily CALCIUM CARBONATE-VIT D-MIN 88528204882 No Longer Active Yolande Lindsay MD PhD Active CYCLOBENZAPRINE HCL 10 MG TABS 1 tablet by mouth three times daily as needed for muscle spasm/pain CYCLOBENZAPRINE HCL 76390531306 Active Yolande Lindsay MD PhD Active ONDANSETRON 4 MG TBDP 1 q4h PRN nausea ONDANSETRON 46657810432 Active Yolande Lindsay MD PhD Active ADULT ASPIRIN EC LOW STRENGTH 81 MG TBEC Take 1 tablet by mouth daily 2014 ASPIRIN 45179096552 No Longer Active Yolande Lindsay MD PhD Active ZOFRAN ODT 4 MG TBDP 1 pill dissolved by mouth every 4 hours if needed for nausea ONDANSETRON 40737520664 No Longer Active Yolande Lindsay MD PhD Active CEFTIN 500 MG TAB 1 twice a day CEFUROXIME AXETIL 68552218042 No Longer Active Yolande Lindsay MD PhD Active ALBUTEROL SULFATE 0.083 % [facility] SOLN one vial per nebulizer every 4-6 hours as needed ALBUTEROL SULFATE 63580939679 No Longer Active Alexis Ordaz MD Active DOXYCYCLINE HYCLATE 100 MG CAP 1 cap by mouth twice daily DOXYCYCLINE HYCLATE 12232997201 No Longer Active Yolande Lindsay MD PhD Active CYCLOBENZAPRINE HCL 10 MG TABS 1/2 - 1 tab by mouth three times daily if needed for spasms/pain CYCLOBENZAPRINE HCL 23200520605 No Longer Active Yolande Lindsay MD PhD Active AZITHROMYCIN 250 MG TABS 2 pills on day 1, then 1 pill daily x 4 days AZITHROMYCIN 60190598162 No Longer Active Yolande Lindsay MD PhD Active XOPENEX 1.25 MG/3ML NEBU 1 neb every 4 hours if needed for cough/congestion LEVALBUTEROL HCL 32335685918 No Longer Active Yolande Lindsay MD PhD Active DOXYCYCLINE HYCLATE 100 MG TAB 1 tab twice a day for 14 days 2013 DOXYCYCLINE HYCLATE 41789623866 No Longer Active Yolande Lindsay MD PhD Active PREVACID 30 MG CPDR Take 1 tablet by mouth daily-PRN LANSOPRAZOLE 21491406990 No Longer Active Yolande Lindsay MD PhD Active PA VITAMIN D-3 2000 UNIT CAPS 1 CAP PO DAILY CHOLECALCIFEROL 73060136299 No Longer Active Yolande Lindsay MD PhD Active CEFDINIR 300 MG CAPS by mouth twice a day CEFDINIR 77346749204 No Longer Active Gab Padron MD Active TOPAMAX 50 MG TABS 1 PO twice daily TOPIRAMATE 43424197236 Active Yolande Lindsay MD PhD Active AZITHROMYCIN 250 MG TABS 2 po qd x 1 day, then 1 po qd x 4 days AZITHROMYCIN 43549910101 No Longer Active Yolande Lindsay MD PhD Active DICLOFENAC SODIUM 75 MG TBEC 1 tablet by q 12 hours PRN headaches DICLOFENAC SODIUM 46576420232 No Longer Active Yolande Lindsay MD PhD Active FLONASE 50 MCG/ACT SUSP 1 spray each nostril am and hs FLUTICASONE PROPIONATE 09559469870 No Longer Active Todd Callaway MD Active ANUSOL-HC 25 MG SUPPOSITORY 1 rectally twice a day as needed for hemorrhoids HYDROCORTISONE JAYDEN (RECTAL) 98332039878 No Longer Active Yolande Lindsay MD PhD Active ANUSOL-HC 25 MG SUPPOSITORY 1 suppository rectally each evening as needed for anal fissure HYDROCORTISONE JAYDEN (RECTAL) 83625637374 No Longer Active Bozena JaredEDELMIRAFeliciano Active VALIUM 5 MG TAB 1 po 30 minutes prior to your MRI DIAZEPAM 89984495248 No Longer Active LONNIE Iglesias Active METHOCARBAMOL 750 MG TABS 1 PO QID PRN METHOCARBAMOL 45821768236 No Longer Active Daphne Wetzel MANAGER HEMATOLOGY Active NITROSTAT 0.4 MG SUBL as directed NITROGLYCERIN 35193433959 No Longer Active Rodrigo Sarah MANAGER HEMATOLOGY Active ROBAXIN-750 750 MG TABS 2 four times a day for 3 days as needed for muscle spasm, then 1 four times a day as needed METHOCARBAMOL 00347696683 No Longer Active Rodrigo Sarah APRN Active HYDROCODONE-ACETAMINOPHEN 5-325 MG TABS 1 q 4-6 hrs prn HYDROCODONE-ACETAMINOPHEN 95712994997 No Longer Active Silvestrellnacho Sarah APRN Active VERAPAMIL HCL CR 180 MG CR-TABS TAKE 1 TAB DAILY VERAPAMIL HCL 16804297318 No Longer Active Yolande Lindsay MD PhD Active BACTRIM DS 800-160 MG TAB 1 tab by mouth twice daily TRIMETHOPRIM-SULFAMETHOXAZOLE 12582022928 No Longer Active Yolande Lindsay MD PhD Active NEXIUM 40 MG PACK 1 by mouth daily ESOMEPRAZOLE MAGNESIUM 05117231664 No Longer Active Des Hines MD Active EPIPEN 2-CHARLETTE 0.3 MG/0.3ML OMARI as need for allergic reaction EPINEPHRINE 97859330357 Active Yolande Lindsay MD PhD Active NEXIUM 40 MG CPDR 1 PO Q D DAY ESOMEPRAZOLE MAGNESIUM 49398915076 No Longer Active Sadia Perry RN Active NEXIUM 40 MG PACK 1 by mouth daily NEXIUM 40 MG PACK ESOMEPRAZOLE MAGNESIUM Inactive VERAPAMIL HCL CR 180 MG CR-TABS TAKE 1 TAB DAILY VERAPAMIL HCL CR 180 MG CR-TABS VERAPAMIL HCL Inactive HYDROCODONE-ACETAMINOPHEN 5-325 MG TABS 1 q 4-6 hrs prn HYDROCODONE-ACETAMINOPHEN 5-325 MG TABS 452259 HYDROCODONE-ACETAMINOPHEN Inactive ROBAXIN-750 750 MG TABS 2 four times a day for 3 days as needed for muscle spasm, then 1 four times a day as needed ROBAXIN-750 750 MG TABS 489871 METHOCARBAMOL Inactive NITROSTAT 0.4 MG SUBL as directed NITROSTAT 0.4 MG SUBL NITROGLYCERIN Inactive METHOCARBAMOL 750 MG TABS 1 PO QID PRN METHOCARBAMOL 750 MG TABS 766807 METHOCARBAMOL Inactive VALIUM 5 MG TAB 1 po 30 minutes prior to your MRI VALIUM 5 MG TAB 494578 DIAZEPAM Inactive ANUSOL-HC 25 MG SUPPOSITORY 1 suppository rectally each evening as needed for anal fissure ANUSOL-HC 25 MG SUPPOSITORY 4365974 HYDROCORTISONE JAYDEN (RECTAL) Inactive ANUSOL-HC 25 MG SUPPOSITORY 1 rectally twice a day as needed for hemorrhoids ANUSOL-HC 25 MG SUPPOSITORY 5990463 HYDROCORTISONE JAYDEN (RECTAL) Inactive FLONASE 50 MCG/ACT SUSP 1 spray each nostril am and hs FLONASE 50 MCG/ACT SUSP FLUTICASONE PROPIONATE Inactive DICLOFENAC SODIUM 75 MG TBEC 1 tablet by q 12 hours PRN headaches DICLOFENAC SODIUM 75 MG TBEC 365241 DICLOFENAC SODIUM Inactive PA VITAMIN D-3 2000 UNIT CAPS 1 CAP PO DAILY PA VITAMIN D-3 2000 UNIT CAPS CHOLECALCIFEROL Inactive PREVACID 30 MG CPDR Take 1 tablet by mouth daily-PRN PREVACID 30 MG CPDR 609945 LANSOPRAZOLE Inactive DOXYCYCLINE HYCLATE 100 MG TAB 1 tab twice a day for 14 days 2013 DOXYCYCLINE HYCLATE 100 MG TAB 3576284 DOXYCYCLINE HYCLATE Inactive XOPENEX 1.25 MG/3ML NEBU 1 neb every 4 hours if needed for cough/congestion XOPENEX 1.25 MG/3ML NEBU 141466 LEVALBUTEROL HCL Inactive CYCLOBENZAPRINE HCL 10 MG TABS 1/2 - 1 tab by mouth three times daily if needed for spasms/pain CYCLOBENZAPRINE HCL 10 MG TABS 683234 CYCLOBENZAPRINE HCL Inactive ALBUTEROL SULFATE 0.083 % NEBU SOLN one vial per nebulizer every 4-6 hours as needed ALBUTEROL SULFATE 0.083 % NEBU SOLN 201624 ALBUTEROL SULFATE Inactive CEFTIN 500 MG TAB 1 twice a day CEFTIN 500 MG TAB 884248 CEFUROXIME AXETIL Inactive ZOFRAN ODT 4 MG TBDP 1 pill dissolved by mouth every 4 hours if needed for nausea ZOFRAN ODT 4 MG TBDP 837043 ONDANSETRON Inactive ADULT ASPIRIN EC LOW STRENGTH 81 MG TBEC Take 1 tablet by mouth daily 2014 ADULT ASPIRIN EC LOW STRENGTH 81 MG TBEC 143501 ASPIRIN Inactive CALCIUM 600+D PLUS MINERALS 600-400 [...] or an apple NIACIN 500 MG TABS 096178 NIACIN Inactive NIASPAN 500 MG ORAL CR-TABS 1 pill nightly x 1 week, then 2 pills nightly x 1 week, then 3 pills nightly x 1 week, then 4 pills nightly NIASPAN 500 MG ORAL CR-TABS NIACIN (ANTIHYPERLIPIDEMIC) Inactive OXYCODONE HCL 5 MG ORAL CAPS 1 TAB PO Q HS OXYCODONE HCL 5 MG ORAL CAPS 1749749 OXYCODONE HCL Inactive FLUTICASONE PROPIONATE 50 MCG/ACT SUSP 1 to 2 sprays each nostril daily 04/21 FLUTICASONE PROPIONATE 50 MCG/ACT SUSP 021764 FLUTICASONE PROPIONATE Inactive POLYTRIM 87798-2.1 UNIT/ML-% SOLN 1 gtt to affected eye q3h x 7 days POLYTRIM 76828-5.1 UNIT/ML-% SOLN 537734 POLYMYXIN B- TRIMETHOPRIM Inactive CHERATUSSIN AC 100-10 MG/5ML SYRP 1 tsp by mouth every 4 hours as needed for cough CHERATUSSIN AC 100-10 MG/5ML SYRP 502609 GUAIFENESIN-CODEINE Inactive LEVOTHYROXINE SODIUM 75 MCG TABS Take 1 tab daily LEVOTHYROXINE SODIUM 75 MCG TABS 814535 LEVOTHYROXINE SODIUM Inactive BACTRIM DS 800-160 MG TAB 1 tab by mouth twice daily BACTRIM DS 800-160 MG TAB 889254 TRIMETHOPRIM-SULFAMETHOXAZOLE Inactive AZITHROMYCIN 250 MG TABS 2 po qd x 1 day, then 1 po qd x 4 days AZITHROMYCIN 250 MG TABS 2158376 AZITHROMYCIN Inactive CEFDINIR 300 MG CAPS by mouth twice a day CEFDINIR 300 MG CAPS 064642 CEFDINIR Inactive AZITHROMYCIN 250 MG TABS 2 pills on day 1, then 1 pill daily x 4 days AZITHROMYCIN 250 MG TABS 1745706 AZITHROMYCIN Inactive DOXYCYCLINE HYCLATE 100 MG CAP 1 cap by mouth twice daily DOXYCYCLINE HYCLATE 100 MG CAP 2750978 DOXYCYCLINE HYCLATE Inactive FUROSEMIDE 20 MG TABS 1 pill by mouth daily, for edema FUROSEMIDE 20 MG TABS 965778 FUROSEMIDE Inactive AZITHROMYCIN 250 MG TABS 2 po qd x 1 day, then 1 po qd x 4 days AZITHROMYCIN 250 MG TABS 7000652 AZITHROMYCIN Inactive CEFTIN 500 MG TAB 1 twice a day CEFTIN 500 MG TAB 645395 CEFUROXIME AXETIL Inactive CEFDINIR 300 MG CAPS 1 po BID x 10 days CEFDINIR 300 MG CAPS 267447 CEFDINIR Inactive Immunizations Vaccine Administration Date Value Standard Description Seasonal influenza vaccine, injectable, containing preservative, for > 3 years old (Afluria, FluLaval, Fluzone, Fluvirin, Fluarix, Agriflu(>=18 yo)) Fluzone (>3 yrs.) [NDV404] Influenza, seasonal, injectable influenza immunization (Flu Vax) has been administered Influenza - Unspecified Formulation [CVX88] influenza virus vaccine, unspecified formulation Seasonal influenza vaccine, injectable, containing preservative, for > 3 years old (Afluria, FluLaval, Fluzone, Fluvirin, Fluarix, Agriflu(>=18 yo)) Fluzone (>3 yrs.) [ANI281] Influenza, seasonal, injectable pneumococcal immunization administered Pneumovax 23 [CVX33] pneumococcal polysaccharide vaccine, 23 valent dT (Diphtheria and Tetanus) booster given given Td(adult) unspecified formulation Boostrix (Tetanus toxoid, reduced diphtheria toxoid and acellular pertussis vaccine, adsorbed), booster Boostrix [LSX176] tetanus toxoid, reduced diphtheria toxoid, and acellular [...] Panel - Chemistry sodium, serum 145 mmol/L 423-035 6882/06/22 potassium, serum 3.9 mmol/L 3.5-5.2 chloride, serum 109 mmol/L 98-107 carbon dioxide, venous blood 23.4 mmol/L 21.0-32.0 blood glucose 92 mg/dL 65-110 calcium, serum 8.2 mg/dL 8.5-10.1 urea nitrogen, blood 24 mg/dL 7-18 creatinine, serum 1.30 mg/dL 0.60-1.30 Lab Report: [facility] Advanced Lipid and Inlammation Panel /20539 - Chemistry cholesterol, serum 198 mg/dL 889-988 3064/04/30 HDL cholesterol, serum 65 mg/dL > OR=46 triglyceride, serum, fasting 82 mg/dL LDL cholesterol, serum 117 mg/dL cholesterol/HDL ratio, serum 3.0 calc < OR=5.0 cholesterol, serum 148 mg/dL 755-904 9773/09/02 HDL cholesterol, serum 55 mg/dL > OR=46 [...] (L) - Chemistry sodium, serum 145 mmol/L 503-697 5874/09/02 potassium, serum 4.6 mmol/L 3.5-5.2 chloride, serum [...] 51 mg/dL 30-200 cholesterol, serum 173 mg/dL 876-745 6094/04/28 HDL cholesterol, serum 63 mg/dL 32-96 LDL [...] mg/dL Encounters Code Encounter Date Provider Facility CPT-41011 Level 4 Est. Patient 21:02:30 STORE CONSULTANT Gab Padron MD [facility]-64285 Level 3 Est. Patient 11:02:19 STORE CONSULTANT Gab Padron MD [facility]-76538 Level 4 Est. Patient 22:24:31 STORE CONSULTANT Gab Padron MD [facility]-53554 Level 3 Est. Patient 18:33:46 STORE CONSULTANT Gab Padron MD [facility]-94193 Level 3 Est. Patient 16:19:11 CDT Yolande Lindsay MD [facility]-37299 Level 3 Est. Patient 18:59:14 CDT Yolande Lindsay MD [facility]-99021 Level 4 Est. Patient 21:29:26 CDT Yolande Lindsay MD [facility]-86262 Level 3 Est. Patient 07:37:45 CDT Yolande Lindsay MD [facility]-87988 Level 3 Est. Patient 17:03:46 CDT Yolande Lindsay MD [facility]-38055 Level 4 Est. Patient 20:02:13 STORE CONSULTANT Yolande Lindsay MD [facility]-70498 Level 3 Est. Patient 16:02:07 STORE CONSULTANT Alexis Ordaz MD [facility]-65461 Level 3 Est. Patient 12:41:24 STORE CONSULTANT Yolande Lindsay MD [facility]-07824 Level 3 Est. Patient 15:41:20 STORE CONSULTANT Yolande Lindsay MD [facility]-12479 Level 3 Est. Patient 13:20:02 STORE CONSULTANT Yolande Lindsay MD [facility]-59423 Level 3 Est. Patient 15:00:38 CDT Jared Og MD [facility]-00137 Level 3 Est. Patient 10:22:32 CDT Yolande Lindsay MD [facility] CPT-04572 Level 3 Est. Patient 17:12:58 CDT Yolande Lindsay MD [facility]-91326 Level 4 Est. Patient 13:30:58 CDT Yolande Lindsay MD [facility]-13206 Level 4 New Patient 09:02:42 CDT Jared Og MD [facility]-10612 Level 3 Est. Patient 08:19:07 CDT Yolande Lindsay MD [facility]-53772 Level 3 Est. Patient 12:00:13 STORE CONSULTANT Gab Padron MD [facility]-27356 Level 3 Est. Patient 16:15:23 STORE CONSULTANT Yolande Lindsay MD [facility]-27227 Level 2 Est. Patient 19:47:15 CDT Yolande Lindsay MD [facility]-05665 Level 3 Est. Patient 21:38:31 CDT Yolande Lindsay MD [facility]-86598 Level 3 Est. Patient 10:25:12 CDT Adiel PERAZA [facility] CPT-04211 Level 4 Est. Patient 10:51:58 CDT Yolande Lindsay MD [facility]-86064 Level 3 Est. Patient 14:04:55 STORE CONSULTANT Rodrigo Sarah [facility]-89716 Level 3 Est. Patient 10:46:35 STORE CONSULTANT Rodrigo Sarah [facility]-92682 Level 3 Est. Patient 14:24:37 STORE CONSULTANT Yolande Lindsay MD [facility]-75688 Level 3 Est. Patient 17:41:58 STORE CONSULTANT Yolande Lindsay MD PhD [facility] CPT-19044 Level 2 Est. Patient 22:01:41 STORE CONSULTANT Rodrigo Sarah [facility] CPT-25029 Level 2 Est. Patient 22:01:11 STORE CONSULTANT Rodrigo Sarah [facility] CPT-15629 Level 3 Est. Patient 10:12:29 STORE CONSULTANT Rodrigo Sarah [facility] CPT-44981 Level 3 Est. Patient 11:05:44 CDT Alexis Ordaz MD [facility]-27301 Level 3 Est. Patient 14:57:20 CDT Yolande Lindsay MD [facility]-17717 Level 3 Est. Patient 14:40:57 CDT Yolande Lindsay MD [facility]-00465 Level 3 Est. Patient 20:55:40 CDT Yolande Lindsay MD [facility]-95186 Level 3 Est. Patient 12:42:38 STORE CONSULTANT Yolande Lindsay MD [facility]-61309 Level 3 Est. Patient 11:54:49 STORE CONSULTANT Des Hines MD [facility]-30478 Level 3 Est. Patient 17:06:38 CDT Dewayne PERAZA [facility] Procedures Code Procedure Name Date Entry Date Standard Description CPT-57484 LS spine comp w obliq 13:28:00 STORE CONSULTANT CPT-J1040 Depo Medrol 80 mg (Methyl Prednisolone Acetate) 10:51: 28 STORE CONSULTANT CPT-J1100 Decadron 8mg (Dexamethasone) 10:51:28 STORE CONSULTANT CPT-83416 Abx/Therapy Injection 10:51:28 STORE CONSULTANT CPT-J1100 Decadron 8mg (Dexamethasone) 21:02:30 STORE CONSULTANT CPT-J1040 Depo Medrol 80 mg (Methyl Prednisolone Acetate) 21:02: 30 STORE CONSULTANT [id number] Event Monitor - MC Transmission 09:12:32 CDT 08/06 [id number] Event Monitor - MC review and interp 09:12:32 CDT [id number] Event Monitor - MC recording 09:12:32 CDT CPT-38348 EKG Trac and Interp 16:50:22 CDT CPT-J1030 Depo Medrol 40 mg (Methyl Prednisolone Acetate) 17:05: 54 CDT CPT-J1100 Decadron 4mg (Dexamethasone) 17:05:54 CDT CPT-47086 Abx/Therapy Injection 17:05:54 CDT CPT-J1100 Decadron 4mg (Dexamethasone) 16:55:28 CDT CPT-J1030 Depo Medrol 40 mg (Methyl Prednisolone Acetate) 16:55: 28 CDT CPT-52558 Ankle Complete - Min 3V 15:58:50 CDT CPT-36343 Knee 3V 15:58:50 CDT CPT-92632 Hip comp min 2V 15:58:50 CDT CPT-J2270 Morphine Sulfate 10 mg 14:25:44 STORE CONSULTANT CPT-J2550 Phenergan 12.5 mg (Promethazine) 14:25:44 STORE CONSULTANT CPT-06710 Abx/Therapy Injection 14:25:44 STORE CONSULTANT CPT-J2550 Phenergan 12.5 mg (Promethazine) 14:08:03 STORE CONSULTANT CPT-J2270 Morphine Sulfate 10 mg 14:08:03 STORE CONSULTANT CPT-45088 Bladder Scan 15:00:38 CDT CPT-TCMM Transitional Care Mgmt-Moderate 09:52:22 CDT CPT-J1030 Depo Medrol 40 mg (Methyl Prednisolone Acetate) 10:55: 18 CDT CPT-J1100 Decadron 4mg (Dexamethasone) 10:55:18 CDT CPT-68634 Abx/Therapy Injection 10:55:18 CDT CPT-J1030 Depo Medrol 40 mg (Methyl Prednisolone Acetate) 10:22: 32 CDT CPT-J1100 Decadron 4mg (Dexamethasone) 10:22:32 CDT CPT-30921 Postop F/U Visit 14:37:13 CDT CPT-36092 Ankle Complete - Min 3V 17:11:58 CDT CPT-85662 Foot comp min 3V 17:11:58 CDT CPT-74117 Bladder Scan 09:56:58 CDT CPT-77126 Postop F/U Visit 09:56:58 CDT CPT-19046 Cystoscopy 09:02:42 CDT CPT-92983 Bladder Scan 09:02:42 CDT CPT-60018 Abd single AP View 16:00:35 CDT CPT-08498 Administration single or combination vaccine inc oral 10 :15:43 CDT CPT-61168 Influenza split virus > age 3 10:15:43 CDT CPT-96511 Nail Avulsion 09:24:57 CDT CPT-OV Office Visit 11:15:41 CDT CPT-17682 Abx/Therapy Injection 10:51:30 CDT CPT-J3301 Kenalog 40 mg (Triamcinolone Acetonide) 10:25:12 CDT CPT-J1100 Decadron 4mg (Dexamethasone) 10:25:12 CDT CPT-97694 Anoscopy diagnostic 10:36:12 CDT CPT-OV Office Visit 15:34:31 CDT CPT-79857 Abx/Therapy Injection 08:21:15 STORE CONSULTANT CPT-J1885 Toradol 60 mg (Ketorolac) 10:46:35 STORE CONSULTANT CPT-OV Office Visit 19:51:16 STORE CONSULTANT CPT-86557 Spec Collection and Handling Fee 14:34:18 STORE CONSULTANT CPT-PV Prev. Care Visit 14:19:18 STORE CONSULTANT CPT-05972 Postop F/U Visit 14:47:51 STORE CONSULTANT CPT-28772 Postop F/U Visit 15:15:14 STORE CONSULTANT CPT-86233 Postop F/U Visit 14:41:43 CDT CPT-70407 Postop F/U Visit 15:47:46 CDT CPT-OV Office Visit 15:27:23 CDT CPT-OV Office Visit 17:20:34 CDT CPT-18263 Abx/Therapy Injection 15:05:57 CDT CPT-J1100 Decadron 8mg (Dexamethasone) 14:44:57 CDT CPT-J1040 Depo Medrol 80 mg (Methyl Prednisolone Acetate) 14:44: 57 CDT CPT-JTINJ Joint Injection 10:17:37 CDT CPT-33144 Administration 2+ single or combination vaccines inc oral 13:01:46 STORE CONSULTANT CPT-01929 Administration single or combination vaccine inc oral 13 :01:46 STORE CONSULTANT CPT-77357 Pneumovax 13:01:46 STORE CONSULTANT CPT-68834 Influenza split virus > age 3 13:01:46 STORE CONSULTANT CPT-27961 Administration single or combination vaccine inc oral 08 :56:49 CDT CPT-52611 Tdap 08:56:49 CDT
--- OUTSIDE RECORDS SUMMARY | 2017-03-21 22:28 | XMS REPORT | Clinical Summary ---
Author Author Admin, MARGRET Organization [employer] Address Unknown Phone Unavailable Allergies, Adverse Reactions, Alerts Allergy Name Reaction Description Start Date Severity Status Provider VALENTIN Critical Active Rodrigo Montemayorl [facility] CHLORHEXIDINE GLUCONATE tongue and gums swollen Critical Active Hoa Kabaford [facility] NORFLEX Rash Critical Active Rowenaina Farshadzell [facility] ENGINEER TRAZODONE HCL sees things Critical Active [...] infarction, hx of 412 Active Hoa Otto [facility] Old myocardial infarction Pelvic pain [...] ICD-455.2 Inactive Yolande Lindsay MD PhD POISON SMAI DERMATITIS ICD-692.6 Inactive Yolande Lindsay MD PhD [...] Lindsay MD PhD Hematuria ICD-599.70 Inactive Yolande Lidnsay MD PhD Ankle pain, right ICD-719.47 Inactive [...] daily for 2 days end 02/05/17 PREDNISONE 81486108085 Active Gab Padron MD Active ZANTAC 150 MG TAB 1 by mouth twice daily RANITIDINE HCL 24116846255 Active Gab Padron MD Active TRIAMCINOLONE ACETONIDE 0.1 % CREA Apply to affected area 3 times daily for up to 2 weeks TRIAMCINOLONE ACETONIDE 98613984984 Active Tisha Lambert APRN Active LISINOPRIL 40 MG TABS 1 tablet by mouth daily LISINOPRIL 71097181306 Active Tisha Lambert APRN Active IBUPROFEN 600 MG TAB 1 tablet by mouth every 6 hours for 7 days, then 1 tablet every 6 hours as needed. Take with food IBUPROFEN 15188339672 No Longer Active Tisha Lambert APRN Active PREDNISONE 20 MG TAB 1 tab twice daily for 3 day, then one daily for three days PREDNISONE 05335005349 No Longer Active Tisha Lambert APRN Active TRIAMCINOLONE ACETONIDE 0.1 % CREA apply bid sparingly to rash TRIAMCINOLONE ACETONIDE 74092504596 No Longer Active Gab Padron MD Active TRAMADOL HCL 50 MG TABS 1 tab po every 6 hrs prn pain TRAMADOL HCL 19088123184 No Longer Active Gab Padron MD Active BACTRIM DS 800-160 MG TAB 1 tab by mouth twice daily TRIMETHOPRIM-SULFAMETHOXAZOLE 60052059736 No Longer Active Tisha Lambert APRN Active ADVAIR DISKUS 250-50 MCG/DOSE AEPB 1 puff BID FLUTICASONE-SALMETEROL 44266060246 No Longer Active Todd Callaway MD Active ONDANSETRON 4 MG TBDP 1 q4h PRN nausea ONDANSETRON 03092500500 No Longer Active LONNIE Iglesias Active FISH OIL 1000 MG CAPS 3 pills daily OMEGA-3 FATTY ACIDS 56612225299 No Longer Active LONNIE Iglesias Active CETIRIZINE HCL 10 MG ORAL TABS 1 po qd PRN Allergies CETIRIZINE HCL 34322110912 Active Gab Padron MD Active CLARITIN 10 MG TAB 1 tablet by mouth daily as needed for allergies LORATADINE 57458624429 No Longer Active Gab Padron MD Active PREDNISONE 20 MG TAB take 3 tabs daily for 3 days, 2 tabs daily for 3 days, 1 tab daily for 3 days, 1/2 tab daily for 3 days PREDNISONE 76384919526 No Longer Active Tisha Lambert APRN Active PREDNISONE 20 MG TAB 2 tabs daily for 3 days, 1 tab daily for 3 days, 1/2 tab daily for 2 days PREDNISONE 31345213543 No Longer Active Gab Padron MD Active ZOFRAN ODT 4 MG TBDP 1 po q6hr PRN Nausea ONDANSETRON 21285209122 Active Gab Padron MD Active BACTRIM DS 800-160 MG TAB 1 tab by mouth twice daily TRIMETHOPRIM-SULFAMETHOXAZOLE 73054197729 No Longer Active Gab Padron MD Active LEVOTHYROXINE SODIUM 75 MCG TABS Take 1 tab daily LEVOTHYROXINE SODIUM 74569823941 No Longer Active Mariana FLEMING Active SYNTHROID 88 MCG ORAL TABS Take one by mouth daily LEVOTHYROXINE SODIUM 45997323511 Active Tisha Lambert APRN Active CHERATUSSIN AC 100-10 MG/5ML SYRP 1 tsp by mouth every 4 hours as needed for cough GUAIFENESIN-CODEINE 73620130222 No Longer Active Gab Padron MD Active POLYTRIM 40144-2.1 UNIT/ML-% SOLN 1 gtt to affected eye q3h x 7 days POLYMYXIN B-TRIMETHOPRIM 85456979280 No Longer Active Gab Padron MD Active FLUTICASONE PROPIONATE 50 MCG/ACT SUSP 1 to 2 sprays each nostril daily 04/21 FLUTICASONE PROPIONATE 30723710424 No Longer Active Gab Padron MD Active TRILEPTAL 600 MG TABS Take one 1 tablet in Am and 1 tablet at night OXCARBAZEPINE 93994027995 Active Gab Padron MD Active CEFDINIR 300 MG CAPS 1 po BID x 10 days CEFDINIR 58449751384 No Longer Active Rodrigo Sarah APRN Active CEFTIN 500 MG TAB 1 twice a day CEFUROXIME AXETIL 04972993951 No Longer Active Gab Padron MD Active AZITHROMYCIN 250 MG TABS 2 po qd x 1 day, then 1 po qd x 4 days AZITHROMYCIN 28383432488 No Longer Active Rodrigo Sarah APRN Active OXYCODONE HCL 5 MG ORAL CAPS 1 TAB PO Q HS OXYCODONE HCL 14194925371 No Longer Active Rodrigo Sarah APRN Active NIASPAN 500 MG ORAL CR-TABS 1 pill nightly x 1 week, then 2 pills nightly x 1 week, then 3 pills nightly x 1 week, then 4 pills nightly NIACIN (ANTIHYPERLIPIDEMIC) 87186238257 No Longer Active Rodrigo Sarah APRN Active NIACIN 500 MG TABS 1 pill by mouth nightly x 1 week, then 2 pills x 1 week, then 3 pills x 1 week, then 4 pills nightly - take after evening meal, with applesauce or an apple NIACIN 74648698032 No Longer Active Yolande Lindsay MD PhD Active FUROSEMIDE 20 MG TAB 1 tablet by mouth daily FUROSEMIDE 09552583428 Active Gab Padron MD Active FUROSEMIDE 20 MG TABS 1 pill by mouth daily, for edema FUROSEMIDE 19056262857 No Longer Active Yolande Lindsay MD PhD Active ATORVASTATIN CALCIUM 10 MG TABS 1 pill by mouth daily, for cholesterol 09/06 ATORVASTATIN CALCIUM 47904773330 Active Gab Padron MD Active CALCIUM 600+D PLUS MINERALS 600-400 MG-UNIT ORAL CHEW 1 tab by mouth daily CALCIUM CARBONATE-VIT D-MIN 64236284494 No Longer Active Yolande Lindsay MD PhD Active CYCLOBENZAPRINE HCL 10 MG TABS 1 tablet by mouth three times daily as needed for muscle spasm/pain CYCLOBENZAPRINE HCL 57349602329 Active Yolande Lindsay MD PhD Active ADULT ASPIRIN EC LOW STRENGTH 81 MG TBEC Take 1 tablet by mouth daily 2014 ASPIRIN 51861510041 No Longer Active Yolande Lindsay MD PhD Active ZOFRAN ODT 4 MG TBDP 1 pill dissolved by mouth every 4 hours if needed for nausea ONDANSETRON 89347055453 No Longer Active Yolande Lindsay MD PhD Active CEFTIN 500 MG TAB 1 twice a day CEFUROXIME AXETIL 92886157138 No Longer Active Yolande Lindsay MD PhD Active ALBUTEROL SULFATE 0.083 % NEBU SOLN one vial per nebulizer every 4-6 hours as needed ALBUTEROL SULFATE 50735054901 No Longer Active Alexis Ordaz MD Active DOXYCYCLINE HYCLATE 100 MG CAP 1 cap by mouth twice daily DOXYCYCLINE HYCLATE 60323613086 No Longer Active Yolande Lindsay MD PhD Active CYCLOBENZAPRINE HCL 10 MG TABS 1/2 - 1 tab by mouth three times daily if needed for spasms/pain CYCLOBENZAPRINE HCL 85237815686 No Longer Active Yolande Lindsay MD PhD Active AZITHROMYCIN 250 MG TABS 2 pills on day 1, then 1 pill daily x 4 days AZITHROMYCIN 48322826346 No Longer Active Yolande Lindsay MD PhD Active XOPENEX 1.25 MG/3ML NEBU 1 neb every 4 hours if needed for cough/congestion LEVALBUTEROL HCL 05752656962 No Longer Active Yolande Lindsay MD PhD Active DOXYCYCLINE HYCLATE 100 MG TAB 1 tab twice a day for 14 days 2013 DOXYCYCLINE HYCLATE 07985212039 No Longer Active Yolande Lindsay MD PhD Active PREVACID 30 MG CPDR Take 1 tablet by mouth daily-PRN LANSOPRAZOLE 90284820986 No Longer Active Yolande Lindsay MD PhD Active PA VITAMIN D-3 2000 UNIT CAPS 1 CAP PO DAILY CHOLECALCIFEROL 35695668572 No Longer Active Yolande Lindsay MD PhD Active CEFDINIR 300 MG CAPS by mouth twice a day CEFDINIR 57764736243 No Longer Active Gab Padron MD Active TOPAMAX 50 MG TABS 1 PO twice daily TOPIRAMATE 66914859379 Active Yolande Lindsay MD PhD Active AZITHROMYCIN 250 MG TABS 2 po qd x 1 day, then 1 po qd x 4 days AZITHROMYCIN 48677916569 No Longer Active Yolande Lindsay MD PhD Active DICLOFENAC SODIUM 75 MG TBEC 1 tablet by q 12 hours PRN headaches DICLOFENAC SODIUM 92674430265 No Longer Active Yolande Lindsay MD PhD Active FLONASE 50 MCG/ACT SUSP 1 spray each nostril am and hs FLUTICASONE PROPIONATE 90033996449 No Longer Active Todd Callaway MD Active ANUSOL-HC 25 MG SUPPOSITORY 1 rectally twice a day as needed for hemorrhoids HYDROCORTISONE JAYDEN (RECTAL) 58919538769 No Longer Active Yolande Lindsay MD PhD Active ANUSOL-HC 25 MG SUPPOSITORY 1 suppository rectally each evening as needed for anal fissure HYDROCORTISONE JAYDEN (RECTAL) 18377919766 No Longer Active LONNIE Iglesias Active VALIUM 5 MG TAB 1 po 30 minutes prior to your MRI DIAZEPAM 89175875463 No Longer Active LONNIE Iglesias Active METHOCARBAMOL 750 MG TABS 1 PO QID PRN METHOCARBAMOL 04133475390 No Longer Active Daphne Wetzel APRN Active NITROSTAT 0.4 MG SUBL as directed NITROGLYCERIN 97179921638 No Longer Active Rodrigo Sarah APRN Active ROBAXIN-750 750 MG TABS 2 four times a day for 3 days as needed for muscle spasm, then 1 four times a day as needed METHOCARBAMOL 84771747388 No Longer Active Rodrigo Sarah APRN Active HYDROCODONE-ACETAMINOPHEN 5-325 MG TABS 1 q 4-6 hrs prn HYDROCODONE-ACETAMINOPHEN 58399379088 No Longer Active Jillnacho Sarah APRN Active VERAPAMIL HCL CR 180 MG CR-TABS TAKE 1 TAB DAILY VERAPAMIL HCL 19777906679 No Longer Active Yolande Lindsay MD PhD Active BACTRIM DS 800-160 MG TAB 1 tab by mouth twice daily TRIMETHOPRIM-SULFAMETHOXAZOLE 64842162448 No Longer Active Yolande Lindsay MD PhD Active NEXIUM 40 MG PACK 1 by mouth daily ESOMEPRAZOLE MAGNESIUM 09144343022 No Longer Active Des Hines MD Active EPIPEN 2-CHARLETTE 0.3 MG/0.3ML OMARI as need for allergic reaction EPINEPHRINE 29776598161 Active Yolande Lindsay MD PhD Active NEXIUM 40 MG CPDR 1 PO Q D DAY ESOMEPRAZOLE MAGNESIUM 18199899840 No Longer Active Sadia Perry RN Active NEXIUM 40 MG PACK 1 by mouth daily NEXIUM 40 MG PACK ESOMEPRAZOLE MAGNESIUM Inactive VERAPAMIL HCL CR 180 MG CR-TABS TAKE 1 TAB DAILY VERAPAMIL HCL CR 180 MG CR-TABS VERAPAMIL HCL Inactive HYDROCODONE-ACETAMINOPHEN 5-325 MG TABS 1 q 4-6 hrs prn HYDROCODONE-ACETAMINOPHEN 5-325 MG TABS 518471 HYDROCODONE-ACETAMINOPHEN Inactive ROBAXIN-750 750 MG TABS 2 four times a day for 3 days as needed for muscle spasm, then 1 four times a day as needed ROBAXIN-750 750 MG TABS 243665 METHOCARBAMOL Inactive NITROSTAT 0.4 MG SUBL as directed NITROSTAT 0.4 MG SUBL 267964 NITROGLYCERIN Inactive METHOCARBAMOL 750 MG TABS 1 PO QID PRN METHOCARBAMOL 750 MG TABS 019637 METHOCARBAMOL Inactive VALIUM 5 MG TAB 1 po 30 minutes prior to your MRI VALIUM 5 MG TAB 109177 DIAZEPAM Inactive ANUSOL-HC 25 MG SUPPOSITORY 1 suppository rectally each evening as needed for anal fissure ANUSOL-HC 25 MG SUPPOSITORY 9132639 HYDROCORTISONE JAYDEN (RECTAL) Inactive ANUSOL-HC 25 MG SUPPOSITORY 1 rectally twice a day as needed for hemorrhoids ANUSOL-HC 25 MG SUPPOSITORY 2352550 HYDROCORTISONE JAYDEN (RECTAL) Inactive FLONASE 50 MCG/ACT SUSP 1 spray each nostril am and hs FLONASE 50 MCG/ACT SUSP 2578954 FLUTICASONE PROPIONATE Inactive DICLOFENAC SODIUM 75 MG TBEC 1 tablet by q 12 hours PRN headaches DICLOFENAC SODIUM 75 MG TBEC 144629 DICLOFENAC SODIUM Inactive PA VITAMIN D-3 2000 UNIT CAPS 1 CAP PO DAILY PA VITAMIN D-3 2000 UNIT CAPS CHOLECALCIFEROL Inactive PREVACID 30 MG CPDR Take 1 tablet by mouth daily-PRN PREVACID 30 MG CPDR 838012 LANSOPRAZOLE Inactive DOXYCYCLINE HYCLATE 100 MG TAB 1 tab twice a day for 14 days 2013 DOXYCYCLINE HYCLATE 100 MG TAB 6412486 DOXYCYCLINE HYCLATE Inactive XOPENEX 1.25 MG/3ML NEBU 1 neb every 4 hours if needed for cough/congestion XOPENEX 1.25 MG/3ML NEBU 606737 LEVALBUTEROL HCL Inactive CYCLOBENZAPRINE HCL 10 MG TABS 1/2 - 1 tab by mouth three times daily if needed for spasms/pain CYCLOBENZAPRINE HCL 10 MG TABS 329445 CYCLOBENZAPRINE HCL Inactive ALBUTEROL SULFATE 0.083 % NEBU SOLN one vial per nebulizer every 4-6 hours as needed ALBUTEROL SULFATE 0.083 % NEBU SOLN 036510 ALBUTEROL SULFATE Inactive CEFTIN 500 MG TAB 1 twice a day CEFTIN 500 MG TAB 239628 CEFUROXIME AXETIL Inactive ZOFRAN ODT 4 MG TBDP 1 pill dissolved by mouth every 4 hours if needed for nausea ZOFRAN ODT 4 MG TBDP 746542 ONDANSETRON Inactive ADULT ASPIRIN EC LOW STRENGTH 81 MG TBEC Take 1 tablet by mouth daily 2014 ADULT ASPIRIN EC LOW STRENGTH 81 MG TBEC 285699 ASPIRIN Inactive CALCIUM 600+D PLUS MINERALS 600-400 [...] or an apple NIACIN 500 MG TABS 666821 NIACIN Inactive NIASPAN 500 MG ORAL CR-TABS 1 pill nightly x 1 week, then 2 pills nightly x 1 week, then 3 pills nightly x 1 week, then 4 pills nightly NIASPAN 500 MG ORAL CR-TABS NIACIN (ANTIHYPERLIPIDEMIC) Inactive OXYCODONE HCL 5 MG ORAL CAPS 1 TAB PO Q HS OXYCODONE HCL 5 MG ORAL CAPS 1760543 OXYCODONE HCL Inactive FLUTICASONE PROPIONATE 50 MCG/ACT SUSP 1 to 2 sprays each nostril daily 04/21 FLUTICASONE PROPIONATE 50 MCG/ACT SUSP 6814994 FLUTICASONE PROPIONATE Inactive POLYTRIM 55466-3.1 UNIT/ML-% SOLN 1 gtt to affected eye q3h x 7 days POLYTRIM 22650-5.1 UNIT/ML-% SOLN 540685 POLYMYXIN B- TRIMETHOPRIM Inactive CHERATUSSIN AC 100-10 MG/5ML SYRP 1 tsp by mouth every 4 hours as needed for cough CHERATUSSIN AC 100-10 MG/5ML SYRP 695952 GUAIFENESIN-CODEINE Inactive LEVOTHYROXINE SODIUM 75 MCG TABS Take 1 tab daily LEVOTHYROXINE SODIUM 75 MCG TABS 138809 LEVOTHYROXINE SODIUM Inactive CLARITIN 10 MG TAB 1 tablet by mouth daily as needed for allergies CLARITIN 10 MG TAB 891751 LORATADINE Inactive FISH OIL 1000 MG CAPS 3 pills daily FISH OIL 1000 MG CAPS OMEGA-3 FATTY ACIDS Inactive ONDANSETRON 4 MG TBDP 1 q4h PRN nausea ONDANSETRON 4 MG TBDP 735795 ONDANSETRON Inactive ADVAIR DISKUS 250-50 MCG/DOSE AEPB 1 puff BID ADVAIR DISKUS 250-50 MCG/DOSE AEPB FLUTICASONE-SALMETEROL Inactive TRAMADOL HCL 50 MG TABS 1 tab po every 6 hrs prn pain TRAMADOL HCL 50 MG TABS 327570 TRAMADOL HCL Inactive TRIAMCINOLONE ACETONIDE 0.1 % CREA apply bid sparingly to rash TRIAMCINOLONE ACETONIDE 0.1 % CREA 5848970 TRIAMCINOLONE ACETONIDE Inactive PREDNISONE 20 MG TAB 1 tab twice daily for 3 day, then one daily for three days PREDNISONE 20 MG TAB 774867 PREDNISONE Inactive IBUPROFEN 600 MG TAB 1 tablet by mouth every 6 hours for 7 days, then 1 tablet every 6 hours as needed. Take with food IBUPROFEN 600 MG TAB 742576 IBUPROFEN Inactive BACTRIM DS 800-160 MG TAB 1 tab by mouth twice daily BACTRIM DS 800-160 MG TAB 19820606 TRIMETHOPRIM-SULFAMETHOXAZOLE Inactive AZITHROMYCIN 250 MG TABS 2 po qd x 1 day, then 1 po qd x 4 days AZITHROMYCIN 250 MG TABS 416983 AZITHROMYCIN Inactive CEFDINIR 300 MG CAPS by mouth twice a day CEFDINIR 300 MG CAPS 20020708 CEFDINIR Inactive AZITHROMYCIN 250 MG TABS 2 pills on day 1, then 1 pill daily x 4 days AZITHROMYCIN 250 MG TABS 248389 AZITHROMYCIN Inactive DOXYCYCLINE HYCLATE 100 MG CAP 1 cap by mouth twice daily DOXYCYCLINE HYCLATE 100 MG CAP 0734923 DOXYCYCLINE HYCLATE Inactive FUROSEMIDE 20 MG TABS 1 pill by mouth daily, for edema FUROSEMIDE 20 MG TABS 695296 FUROSEMIDE Inactive AZITHROMYCIN 250 MG TABS 2 po qd x 1 day, then 1 po qd x 4 days AZITHROMYCIN 250 MG TABS 560404 AZITHROMYCIN Inactive CEFTIN 500 MG TAB 1 twice a day CEFTIN 500 MG TAB 133913 CEFUROXIME AXETIL Inactive CEFDINIR 300 MG CAPS [...] for 2 days PREDNISONE 20 MG TAB 230794 PREDNISONE Inactive PREDNISONE 20 MG TAB take 3 tabs daily for 3 days, 2 tabs daily for 3 days, 1 tab daily for 3 days, 1/2 tab daily for 3 days PREDNISONE 20 MG TAB 933182 PREDNISONE Inactive BACTRIM DS 800-160 MG TAB 1 tab by mouth twice daily BACTRIM DS 800-160 MG TAB 070883 TRIMETHOPRIM-SULFAMETHOXAZOLE Inactive Immunizations Vaccine Administration Date Value Standard Description Seasonal influenza vaccine, injectable, containing preservative, for > 3 years old (Afluria, FluLaval, Fluzone, Fluvirin, Fluarix, Agriflu(>=18 yo)) Fluzone (>3 yrs.) [SSY326] Influenza, seasonal, injectable influenza immunization (Flu Vax) has been administered Influenza - Unspecified Formulation [CVX88] influenza virus vaccine, unspecified formulation Seasonal influenza vaccine, injectable, containing preservative, for > 3 years old (Afluria, FluLaval, Fluzone, Fluvirin, Fluarix, Agriflu(>=18 yo)) Fluzone (>3 yrs.) [XPV725] Influenza, seasonal, injectable pneumococcal immunization administered Pneumovax 23 [CVX33] pneumococcal polysaccharide vaccine, 23 valent dT (Diphtheria and Tetanus) booster given given Td(adult) unspecified formulation Boostrix (Tetanus toxoid, reduced diphtheria toxoid and acellular pertussis vaccine, adsorbed), booster Boostrix [WWW325] tetanus toxoid, reduced diphtheria toxoid, and acellular [...] PANEL - Chemistry cholesterol, serum 166 mg/dL 421-234 5882/12/06 triglyceride, serum, fasting 86 mg/dL 30-200 HDL [...] negative Encounters Code Encounter Date Provider Facility CPT-70529 Level 3 Est. Patient 17:32:14 CDT Gab Padron MD [facility] CPT-22098 Level 3 Est. Patient 10:28:15 CDT Tisha Lambert [facility][note 3] CPT-59642 Level 3 Est. Patient 14:50:29 CDT Gab Padron MD [facility] CPT-34977 Level 3 Est. Patient 14:46:09 CDT Tisha Lambert [facility][note 3] CPT-16043 Level 4 New Patient 16:13:15 CDT Todd Callaway MD [facility] CPT-49640 Level 4 Est. Patient 13:18:33 CDT Gab Padron MD [facility] CPT-42568 Level 3 Est. Patient 15:20:50 CDT Jared Og MD [facility] CPT-45660 Level 3 Est. Patient 17:43:55 COMPUTER TERMINAL OPERATOR Gab Padron MD [facility] CPT-04562 Level 3 Est. Patient 17:07:49 COMPUTER TERMINAL OPERATOR Jared Og MD [facility] CPT-41929 Level 4 Est. Patient 19:55:18 COMPUTER TERMINAL OPERATOR Jared Og MD [facility] CPT-16043 Level 3 Est. Patient 20:13:34 COMPUTER TERMINAL OPERATOR Jared Og MD [facility] CPT-25308 Level 4 Est. Patient 16:31:27 CDT Gab Padron MD [facility] CPT-20187 Level 2 Est. Patient 12:23:38 CDT Jared Og MD [facility] CPT-59859 Level 3 Est. Patient 11:01:51 CDT Gab Padron MD [facility] CPT-06942 Level 3 Est. Patient 15:27:02 CDT Jared Og MD [facility] [place] CPT-12290 Level 4 Est. Patient 09:25:27 CDT Gab Padron MD [facility] CPT-36197 Level 3 Est. Patient 10:29:41 [facility] Est[facility] Patient 17:51:05 CDT Gab Padron MD [facility]-21607 Level 3 Est. Patient 14:18:08 CDT Gab Padron MD [facility]-07369 Level 4 Est. Patient 10:18:54 CDT Gab Padron MD [facility]-04914 Level 3 Est. Patient 11:30:07 CDT Rodrigo Sarah [facility]-75358 Level 4 Est. Patient 21:02:30 COMPUTER TERMINAL OPERATOR Gab Padron MD [facility]-56255 Level 3 Est. Patient 11:02:19 COMPUTER TERMINAL OPERATOR Gab Padron MD [facility]-43441 Level 4 Est. Patient 22:24:31 COMPUTER TERMINAL OPERATOR Gab Padron MD [facility]-53838 Level 3 Est. Patient 18:33:46 COMPUTER TERMINAL OPERATOR Gab Padron MD [facility]-79574 Level 3 Est. Patient 16:19:11 CDT Yolande Lindsay MD [facility]-16317 Level 3 Est. Patient 18:59:14 CDT Yolande Lindsay MD [facility]-88929 Level 4 Est. Patient 21:29:26 CDT Yolande Lindsay MD [facility]-88373 Level 3 Est. Patient 07:37:45 CDT Yolande Lindsay MD [facility]-47732 Level 3 Est. Patient 17:03:46 CDT Yolande Lindsay MD [facility]-08592 Level 4 Est. Patient 20:02:13 COMPUTER TERMINAL OPERATOR Yolande Lindsay MD [facility]-02212 Level 3 Est. Patient 16:02:07 COMPUTER TERMINAL OPERATOR Alexis Ordaz MD [facility]-79574 Level 3 Est. Patient 12:41:24 COMPUTER TERMINAL OPERATOR Yolande Lindsay MD [facility]-86716 Level 3 Est. Patient 15:41:20 COMPUTER TERMINAL OPERATOR Yolande Lindsay MD [facility]-15065 Level 3 Est. Patient 13:20:02 COMPUTER TERMINAL OPERATOR Yolande Lindsay MD [facility]-28362 Level 3 Est. Patient 15:00:38 CDT Jared Og MD [facility]-63529 Level 3 Est. Patient 10:22:32 CDT Yolande Lindsay MD [facility]-60280 Level 3 Est. Patient 17:12:58 CDT Yolande Lindsay MD [facility] CPT-17378 Level 4 Est. Patient 13:30:58 CDT Yolande Lindsay MD [facility] CPT-25148 Level 4 New Patient 09:02:42 CDT Jared Og MD [facility]-36807 Level 3 Est. Patient 08:19:07 CDT Yolande Lindsay MD [facility] CPT-44481 Level 3 Est. Patient 12:00:13 COMPUTER TERMINAL OPERATOR Gab Padron MD [facility] CPT-19796 Level 3 Est. Patient 16:15:23 COMPUTER TERMINAL OPERATOR Yolande Lindsay MD [facility]-39533 Level 2 Est. Patient 19:47:15 CDT Yolande Lindsay MD [facility]-83639 Level 3 Est. Patient 21:38:31 CDT Yolande Lindsay MD [facility]-70793 Level 3 Est. Patient 10:25:12 CDT Adiel PERAZA [facility]-03343 Level 4 Est. Patient 10:51:58 CDT Yolande Lindsay MD [facility]-41032 Level 3 Est. Patient 14:04:55 COMPUTER TERMINAL OPERATOR Rodrigo Sarah [facility]-66498 Level 3 Est. Patient 10:46:35 COMPUTER TERMINAL OPERATOR Rodrigo Sarah [facility]-00250 Level 3 Est. Patient 14:24:37 COMPUTER TERMINAL OPERATOR Yolande Lindsay MD [facility]-18280 Level 3 Est. Patient 17:41:58 COMPUTER TERMINAL OPERATOR Yolande Lindsay MD [facility]-62783 Level 2 Est. Patient 22:01:41 COMPUTER TERMINAL OPERATOR Rodrigo Sarah [facility]-02282 Level 2 Est. Patient 22:01:11 COMPUTER TERMINAL OPERATOR Rodrigo Sarah [facility]-08683 Level 3 Est. Patient 10:12:29 COMPUTER TERMINAL OPERATOR Rodrigo Sarah [facility]-49021 Level 3 Est. Patient 11:05:44 CDT Alexis Ordaz MD [facility]-13723 Level 3 Est. Patient 14:57:20 CDT Yolande Lindsay MD [facility]-01983 Level 3 Est. Patient 14:40:57 CDT Yolande Lindsay MD [facility]-45011 Level 3 Est. Patient 20:55:40 CDT Yolande Lindsay MD [facility]-92833 Level 3 Est. Patient 12:42:38 COMPUTER TERMINAL OPERATOR Yolande Lindsay MD [facility]61083 Level 3 Est. Patient 11:54:49 COMPUTER TERMINAL OPERATOR Des Hines MD [facility] CPT-86676 Level 3 Est. Patient 17:06:38 CDT Dewayne PERAZA [facility] Procedures Code Procedure Name Date Entry Date Standard Description CPT-J2930 Solu Medrol 125 mg (Methyl Prednisolone Sodium Succinate) 13:19:02 CDT CPT-04330 Abx/Therapy Injection 13:19:02 CDT CPT-J2930 Solu Medrol 125 mg (Methyl Prednisolone Sodium Succinate) 13:05:03 CDT CPT-02430 Hip, complete, 2-3 views - XRAY USE ONLY 17:19:04 COMPUTER TERMINAL OPERATOR CPT-01863 Venipuncture Draw Fee 08:37:59 COMPUTER TERMINAL OPERATOR CPT-82493 Liver Profile - LAB USE ONLY 08:37:59 COMPUTER TERMINAL OPERATOR CPT-72770 Lipid - LAB USE ONLY 08:37:58 COMPUTER TERMINAL OPERATOR CPT-65830 First Vx - Ix admin via ID IM or jet injects without counseling by physician 11:52:31 CDT CPT-37019 Fluzone Preservative Free Intramuscular Suspension 11:52 :31 CDT CPT-85340 Foot, left, comp min 3V - XRAY USE ONLY 09:24:54 CDT CPT-04906 Abd single AP View - XRAY USE ONLY 11:16:17 CDT CPT-47028 T spine AP/ Lat - XRAY USE ONLY 09:34:21 CDT CPT-93801 Chest 2V Frontal and Lat - XRAY USE ONLY 10:48:51 CDT CPT-05319 LS spine comp w obliq 13:28:00 COMPUTER TERMINAL OPERATOR CPT-J1040 Depo Medrol 80 mg (Methyl Prednisolone Acetate) 10:51: 28 COMPUTER TERMINAL OPERATOR CPT-J1100 Decadron 8mg (Dexamethasone) 10:51:28 COMPUTER TERMINAL OPERATOR CPT-36760 Abx/Therapy Injection 10:51:28 COMPUTER TERMINAL OPERATOR CPT-J1100 Decadron 8mg (Dexamethasone) 21:02:30 COMPUTER TERMINAL OPERATOR CPT-J1040 Depo Medrol 80 mg (Methyl Prednisolone Acetate) 21:02: 30 COMPUTER TERMINAL OPERATOR [id number] Event Monitor - MC Transmission 09:12:32 CDT 08/06 [id number] Event Monitor - MC review and interp 09:12:32 CDT [id number] Event Monitor - MC recording 09:12:32 CDT CPT-14500 EKG Trac and Interp 16:50:22 CDT CPT-J1030 Depo Medrol 40 mg (Methyl Prednisolone Acetate) 17:05: 54 CDT CPT-J1100 Decadron 4mg (Dexamethasone) 17:05:54 CDT CPT-65494 Abx/Therapy Injection 17:05:54 CDT CPT-J1100 Decadron 4mg (Dexamethasone) 16:55:28 CDT CPT-J1030 Depo Medrol 40 mg (Methyl Prednisolone Acetate) 16:55: 28 CDT CPT-77891 Ankle Complete - Min 3V 15:58:50 CDT CPT-08561 Knee 3V 15:58:50 CDT CPT-46567 Hip comp min 2V 15:58:50 CDT CPT-J2270 Morphine Sulfate 10 mg 14:25:44 COMPUTER TERMINAL OPERATOR CPT-J2550 Phenergan 12.5 mg (Promethazine) 14:25:44 COMPUTER TERMINAL OPERATOR CPT-66993 Abx/Therapy Injection 14:25:44 COMPUTER TERMINAL OPERATOR CPT-J2550 Phenergan 12.5 mg (Promethazine) 14:08:03 COMPUTER TERMINAL OPERATOR CPT-J2270 Morphine Sulfate 10 mg 14:08:03 COMPUTER TERMINAL OPERATOR CPT-17171 Bladder Scan 15:00:38 CDT CPT-TCMM Transitional Care Mgmt-Moderate 09:52:22 CDT CPT-J1030 Depo Medrol 40 mg (Methyl Prednisolone Acetate) 10:55: 18 CDT CPT-J1100 Decadron 4mg (Dexamethasone) 10:55:18 CDT CPT-98720 Abx/Therapy Injection 10:55:18 CDT CPT-J1030 Depo Medrol 40 mg (Methyl Prednisolone Acetate) 10:22: 32 CDT CPT-J1100 Decadron 4mg (Dexamethasone) 10:22:32 CDT CPT-10908 Postop F/U Visit 14:37:13 CDT CPT-12527 Ankle Complete - Min 3V 17:11:58 CDT CPT-04932 Foot comp min 3V 17:11:58 CDT CPT-60631 Bladder Scan 09:56:58 CDT CPT-39549 Postop F/U Visit 09:56:58 CDT CPT-42419 Cystoscopy 09:02:42 CDT CPT-16216 Bladder Scan 09:02:42 CDT CPT-57669 Abd single AP View 16:00:35 CDT CPT-11842 Administration single or combination vaccine inc oral 10 :15:43 CDT CPT-14362 Influenza split virus > age 3 10:15:43 CDT CPT-06343 Nail Avulsion 09:24:57 CDT CPT-OV Office Visit 11:15:41 CDT CPT-26433 Abx/Therapy Injection 10:51:30 CDT CPT-J3301 Kenalog 40 mg (Triamcinolone Acetonide) 10:25:12 CDT CPT-J1100 Decadron 4mg (Dexamethasone) 10:25:12 CDT CPT-79635 Anoscopy diagnostic 10:36:12 CDT CPT-OV Office Visit 15:34:31 CDT CPT-97505 Abx/Therapy Injection 08:21:15 COMPUTER TERMINAL OPERATOR CPT-J1885 Toradol 60 mg (Ketorolac) 10:46:35 COMPUTER TERMINAL OPERATOR CPT-OV Office Visit 19:51:16 COMPUTER TERMINAL OPERATOR CPT-60226 Spec Collection and Handling Fee 14:34:18 COMPUTER TERMINAL OPERATOR CPT-PV Prev. Care Visit 14:19:18 COMPUTER TERMINAL OPERATOR CPT-72142 Postop F/U Visit 14:47:51 COMPUTER TERMINAL OPERATOR CPT-03067 Postop F/U Visit 15:15:14 COMPUTER TERMINAL OPERATOR CPT-08389 Postop F/U Visit 14:41:43 CDT CPT-89338 Postop F/U Visit 15:47:46 CDT CPT-OV Office Visit 15:27:23 CDT CPT-OV Office Visit 17:20:34 CDT CPT-43233 Abx/Therapy Injection 15:05:57 CDT CPT-J1100 Decadron 8mg (Dexamethasone) 14:44:57 CDT CPT-J1040 Depo Medrol 80 mg (Methyl Prednisolone Acetate) 14:44: 57 CDT CPT-JTINJ Joint Injection 10:17:37 CDT CPT-84578 Administration 2+ single or combination vaccines inc oral 13:01:46 COMPUTER TERMINAL OPERATOR CPT-43384 Administration single or combination vaccine inc oral 13 :01:46 COMPUTER TERMINAL OPERATOR CPT-76446 Pneumovax 13:01:46 COMPUTER TERMINAL OPERATOR CPT-99138 Influenza split virus > age 3 13:01:46 COMPUTER TERMINAL OPERATOR CPT-35947 Administration single or combination vaccine inc oral 08 :56:49 CDT CPT-85620 Tdap 08:56:49 CDT
--- OUTSIDE RECORDS SUMMARY | 2017-03-21 22:30 | XMS REPORT | Clinical Summary ---
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 Jillina Frazellilian PROGRAM MANAGEMENT PROFESSIONAL 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 Anemia 285.9 Active Gab Padron MD Anemia, unspecified Conjunctivitis 372.30 Active Jillnacho Sarah APRN Conjunctivitis, unspecified Sinusitis 473.9 Active Silvestrellina Frazell PROGRAM MANAGEMENT PROFESSIONAL Unspecified sinusitis (chronic) Nonspecific syndrome suggestive of viral illness 079.99 Active Rodrigo Sarah PROGRAM MANAGEMENT PROFESSIONAL Unspecified viral infection Laryngitis 464.00 Active Rodrigo Sarah PROGRAM MANAGEMENT PROFESSIONAL Acute laryngitis without mention of obstruction ANKLE [...] MEDICATIONS ICD-V58.69 Inactive Yolande Lindsay MD PhD DYSPHAGIA UNSPECIFIED [...] acute ICD-461.9 Inactive Yolande Lindsay MD PhD Mycoplasma pneumonia [...] MD PhD Knee sprain, left ICD-844.9 Inactive Yoalnde Lindsay MD PhD Ankle sprain, left ICD-845.00 Inactive Yolande Lindsay MD PhD Medication List Medication Instructions Start Date Stop Date Generic Name ND Status Provider Patient Instruction ADVAIR DISKUS 250-50 MCG/DOSE AEPB 1 puff BID FLUTICASONE- SALMETEROL 87092971170 Active Rodrigo Sarah PROGRAM MANAGEMENT PROFESSIONAL Active LEVOTHYROXINE SODIUM 75 MCG TABS Take 1 tab daily LEVOTHYROXINE SODIUM 09366287018 No Longer Active Mariana HICKEYA Active SYNTHROID 88 MCG ORAL TABS Take one by mouth daily LEVOTHYROXINE SODIUM 85309307504 Active Mariana Cuadra RMA Active CHERATUSSIN AC 100-10 MG/5ML SYRP 1 tsp by mouth every 4 hours as needed for cough GUAIFENESIN-CODEINE 16271673043 No Longer Active Gab Padron MD Active POLYTRIM 84370-1.1 UNIT/ML-% SOLN 1 gtt to affected eye q3h x 7 days POLYMYXIN B-TRIMETHOPRIM 42340830950 No Longer Active Gab Padron MD Active FLUTICASONE PROPIONATE 50 MCG/ACT SUSP 1 to 2 sprays each nostril daily 04/21 FLUTICASONE PROPIONATE 28452232030 No Longer Active Gab Padron MD Active TRILEPTAL 600 MG TABS Take one 1 tablet in Am and 1 tablet at night OXCARBAZEPINE 95661406565 Active Gab Padron MD Active CEFDINIR 300 MG CAPS 1 po BID x 10 days CEFDINIR 61602803696 No Longer Active Rodrigo Sarah APRN Active CEFTIN 500 MG TAB 1 twice a day CEFUROXIME AXETIL 05535647222 No Longer Active Gab Padron MD Active AZITHROMYCIN 250 MG TABS 2 po qd x 1 day, then 1 po qd x 4 days AZITHROMYCIN 41473463946 No Longer Active Rodrigo Sarah APRN Active CLARITIN 10 MG TAB 1 tablet by mouth daily as needed for allergies LORATADINE 01291365043 Active Silvestrellnacho Sarah APRN Active OXYCODONE HCL 5 MG ORAL CAPS 1 TAB PO Q HS OXYCODONE HCL 87844874077 No Longer Active Rodrigo Sarah APRN Active NIASPAN 500 MG ORAL CR-TABS 1 pill nightly x 1 week, then 2 pills nightly x 1 week, then 3 pills nightly x 1 week, then 4 pills nightly NIACIN (ANTIHYPERLIPIDEMIC) 55219837682 No Longer Active Silvestrellnacho Sarah APRN Active NIACIN 500 MG TABS 1 pill by mouth nightly x 1 week, then 2 pills x 1 week, then 3 pills x 1 week, then 4 pills nightly - take after evening meal, with applesauce or an apple NIACIN 64319801549 No Longer Active Yolande Lindsay MD PhD Active FISH OIL 1000 MG CAPS 3 pills daily OMEGA-3 FATTY ACIDS 92498035992 Active Yolande Lindsay MD PhD Active TRIAMCINOLONE ACETONIDE 0.1 % CREA apply bid sparingly to rash TRIAMCINOLONE ACETONIDE 16947834734 Active Yolande Lindsay MD PhD Active FUROSEMIDE 20 MG TAB 1 tablet by mouth daily FUROSEMIDE 82576638771 Active Yolande Lindsay MD PhD Active LISINOPRIL 20 MG ORAL TABS 1 tab by mouth daily LISINOPRIL 43288632350 Active Gab Padron MD Active FUROSEMIDE 20 MG TABS 1 pill by mouth daily, for edema FUROSEMIDE 60502399296 No Longer Active Yolande Lindsay MD PhD Active ATORVASTATIN CALCIUM 10 MG TABS 1 pill by mouth daily, for cholesterol 09/06 ATORVASTATIN CALCIUM 12287464623 Active Yolande Lindsay MD PhD Active CALCIUM 600+D PLUS MINERALS 600-400 MG-UNIT ORAL CHEW 1 tab by mouth daily CALCIUM CARBONATE-VIT D-MIN 46972322667 No Longer Active Yolande Lindsay MD PhD Active CYCLOBENZAPRINE HCL 10 MG TABS 1 tablet by mouth three times daily as needed for muscle spasm/pain CYCLOBENZAPRINE HCL 46826217414 Active Yolande Lindsay MD PhD Active ONDANSETRON 4 MG TBDP 1 q4h PRN nausea ONDANSETRON 50361586534 Active Yolande Lindsay MD PhD Active ADULT ASPIRIN EC LOW STRENGTH 81 MG TBEC Take 1 tablet by mouth daily 2014 ASPIRIN 10795057060 No Longer Active Yolande Lindsay MD PhD Active ZOFRAN ODT 4 MG TBDP 1 pill dissolved by mouth every 4 hours if needed for nausea ONDANSETRON 45673570702 No Longer Active Yolande Lindsay MD PhD Active CEFTIN 500 MG TAB 1 twice a day CEFUROXIME AXETIL 60644757262 No Longer Active Yolande Lindsay MD PhD Active ALBUTEROL SULFATE 0.083 % NEBU SOLN one vial per nebulizer every 4-6 hours as needed ALBUTEROL SULFATE 81113534929 No Longer Active Alexis Ordaz MD Active DOXYCYCLINE HYCLATE 100 MG CAP 1 cap by mouth twice daily DOXYCYCLINE HYCLATE 54016925222 No Longer Active Yolande Lindsay MD PhD Active CYCLOBENZAPRINE HCL 10 MG TABS 1/2 - 1 tab by mouth three times daily if needed for spasms/pain CYCLOBENZAPRINE HCL 57262014089 No Longer Active Yolande Lindsay MD PhD Active AZITHROMYCIN 250 MG TABS 2 pills on day 1, then 1 pill daily x 4 days AZITHROMYCIN 50188072990 No Longer Active Yolande Lindsay MD PhD Active XOPENEX 1.25 MG/3ML NEBU 1 neb every 4 hours if needed for cough/congestion LEVALBUTEROL HCL 78612158400 No Longer Active Yolande Lindsay MD PhD Active DOXYCYCLINE HYCLATE 100 MG TAB 1 tab twice a day for 14 days 2013 DOXYCYCLINE HYCLATE 94833258959 No Longer Active Yolande Lindsay MD PhD Active PREVACID 30 MG CPDR Take 1 tablet by mouth daily-PRN LANSOPRAZOLE 23658414581 No Longer Active Yolande Lindsay MD PhD Active PA VITAMIN D-3 2000 UNIT CAPS 1 CAP PO DAILY CHOLECALCIFEROL 29975580472 No Longer Active Yolande Lindsay MD PhD Active CEFDINIR 300 MG CAPS by mouth twice a day CEFDINIR 67626451558 No Longer Active Gab Padron MD Active TOPAMAX 50 MG TABS 1 PO twice daily TOPIRAMATE 65136115429 Active Yolande Lindsay MD PhD Active AZITHROMYCIN 250 MG TABS 2 po qd x 1 day, then 1 po qd x 4 days AZITHROMYCIN 63116125578 No Longer Active Yolande Lindsay MD PhD Active DICLOFENAC SODIUM 75 MG TBEC 1 tablet by q 12 hours PRN headaches DICLOFENAC SODIUM 01360347684 No Longer Active Yolande Lindsay MD PhD Active FLONASE 50 MCG/ACT SUSP 1 spray each nostril am and hs FLUTICASONE PROPIONATE 37925290100 No Longer Active Todd Callaway MD Active ANUSOL-HC 25 MG SUPPOSITORY 1 rectally twice a day as needed for hemorrhoids HYDROCORTISONE JAYDEN (RECTAL) 83464084386 No Longer Active Yolande Lindsay MD PhD Active ANUSOL-HC 25 MG SUPPOSITORY 1 suppository rectally each evening as needed for anal fissure HYDROCORTISONE JAYDEN (RECTAL) 86263029062 No Longer Active LONNEI Iglesias Active VALIUM 5 MG TAB 1 po 30 minutes prior to your MRI DIAZEPAM 92627053472 No Longer Active LONNIE Iglesias Active METHOCARBAMOL 750 MG TABS 1 PO QID PRN METHOCARBAMOL 27927940951 No Longer Active Daphne Wetzel APRN Active NITROSTAT 0.4 MG SUBL as directed NITROGLYCERIN 43954290867 No Longer Active Rodrigo Sarah APRN Active ROBAXIN-750 750 MG TABS 2 four times a day for 3 days as needed for muscle spasm, then 1 four times a day as needed METHOCARBAMOL 71515933670 No Longer Active Rodrigo Sarah APRN Active HYDROCODONE-ACETAMINOPHEN 5-325 MG TABS 1 q 4-6 hrs prn HYDROCODONE-ACETAMINOPHEN 37448616385 No Longer Active Rodrigo Sarah APRN Active VERAPAMIL HCL CR 180 MG CR-TABS TAKE 1 TAB DAILY VERAPAMIL HCL 46791901998 No Longer Active Yolande Lindsay MD PhD Active BACTRIM DS 800-160 MG TAB 1 tab by mouth twice daily TRIMETHOPRIM-SULFAMETHOXAZOLE 24026099015 No Longer Active Yolande Lindsay MD PhD Active NEXIUM 40 MG PACK 1 by mouth daily ESOMEPRAZOLE MAGNESIUM 26603852144 No Longer Active Des Hines MD Active EPIPEN 2-CHARLETTE 0.3 MG/0.3ML OMARI as need for allergic reaction EPINEPHRINE 90668933887 Active Yolande Lindsay MD PhD Active NEXIUM 40 MG CPDR 1 PO Q D DAY ESOMEPRAZOLE MAGNESIUM 56682348535 No Longer Active Sadia Perry RN Active NEXIUM 40 MG PACK 1 by mouth daily NEXIUM 40 MG PACK ESOMEPRAZOLE MAGNESIUM Inactive VERAPAMIL HCL CR 180 MG CR-TABS TAKE 1 TAB DAILY VERAPAMIL HCL CR 180 MG CR-TABS VERAPAMIL HCL Inactive HYDROCODONE-ACETAMINOPHEN 5-325 MG TABS 1 q 4-6 hrs prn HYDROCODONE-ACETAMINOPHEN 5-325 MG TABS 160627 HYDROCODONE-ACETAMINOPHEN Inactive ROBAXIN-750 750 MG TABS 2 four times a day for 3 days as needed for muscle spasm, then 1 four times a day as needed ROBAXIN-750 750 MG TABS 080151 METHOCARBAMOL Inactive NITROSTAT 0.4 MG SUBL as directed NITROSTAT 0.4 MG SUBL NITROGLYCERIN Inactive METHOCARBAMOL 750 MG TABS 1 PO QID PRN METHOCARBAMOL 750 MG TABS 752877 METHOCARBAMOL Inactive VALIUM 5 MG TAB 1 po 30 minutes prior to your MRI VALIUM 5 MG TAB 910713 DIAZEPAM Inactive ANUSOL-HC 25 MG SUPPOSITORY 1 suppository rectally each evening as needed for anal fissure ANUSOL-HC 25 MG SUPPOSITORY 5558002 HYDROCORTISONE JAYDEN (RECTAL) Inactive ANUSOL-HC 25 MG SUPPOSITORY 1 rectally twice a day as needed for hemorrhoids ANUSOL-HC 25 MG SUPPOSITORY 7657047 HYDROCORTISONE JAYDEN (RECTAL) Inactive FLONASE 50 MCG/ACT SUSP 1 spray each nostril am and hs FLONASE 50 MCG/ACT SUSP FLUTICASONE PROPIONATE Inactive DICLOFENAC SODIUM 75 MG TBEC 1 tablet by q 12 hours PRN headaches DICLOFENAC SODIUM 75 MG TBEC 883666 DICLOFENAC SODIUM Inactive PA VITAMIN D-3 2000 UNIT CAPS 1 CAP PO DAILY PA VITAMIN D-3 2000 UNIT CAPS CHOLECALCIFEROL Inactive PREVACID 30 MG CPDR Take 1 tablet by mouth daily-PRN PREVACID 30 MG CPDR 521136 LANSOPRAZOLE Inactive DOXYCYCLINE HYCLATE 100 MG TAB 1 tab twice a day for 14 days 2013 DOXYCYCLINE HYCLATE 100 MG TAB 0994137 DOXYCYCLINE HYCLATE Inactive XOPENEX 1.25 MG/3ML NEBU 1 neb every 4 hours if needed for cough/congestion XOPENEX 1.25 MG/3ML NEBU 117336 LEVALBUTEROL HCL Inactive CYCLOBENZAPRINE HCL 10 MG TABS 1/2 - 1 tab by mouth three times daily if needed for spasms/pain CYCLOBENZAPRINE HCL 10 MG TABS 444104 CYCLOBENZAPRINE HCL Inactive ALBUTEROL SULFATE 0.083 % NEBU SOLN one vial per nebulizer every 4-6 hours as needed ALBUTEROL SULFATE 0.083 % NEBU SOLN 486029 ALBUTEROL SULFATE Inactive CEFTIN 500 MG TAB 1 twice a day CEFTIN 500 MG TAB 059666 CEFUROXIME AXETIL Inactive ZOFRAN ODT 4 MG TBDP 1 pill dissolved by mouth every 4 hours if needed for nausea ZOFRAN ODT 4 MG TBDP 926898 ONDANSETRON Inactive ADULT ASPIRIN EC LOW STRENGTH 81 MG TBEC Take 1 tablet by mouth daily 2014 ADULT ASPIRIN EC LOW STRENGTH 81 MG TBEC 359235 ASPIRIN Inactive CALCIUM 600+D PLUS MINERALS 600-400 [...] or an apple NIACIN 500 MG TABS 516512 NIACIN Inactive NIASPAN 500 MG ORAL CR-TABS 1 pill nightly x 1 week, then 2 pills nightly x 1 week, then 3 pills nightly x 1 week, then 4 pills nightly NIASPAN 500 MG ORAL CR-TABS NIACIN (ANTIHYPERLIPIDEMIC) Inactive OXYCODONE HCL 5 MG ORAL CAPS 1 TAB PO Q HS OXYCODONE HCL 5 MG ORAL CAPS 7757420 OXYCODONE HCL Inactive FLUTICASONE PROPIONATE 50 MCG/ACT SUSP 1 to 2 sprays each nostril daily 04/21 FLUTICASONE PROPIONATE 50 MCG/ACT SUSP 132202 FLUTICASONE PROPIONATE Inactive POLYTRIM 69665-7.1 UNIT/ML-% SOLN 1 gtt to affected eye q3h x 7 days POLYTRIM 13679-1.1 UNIT/ML-% SOLN 135670 POLYMYXIN B- TRIMETHOPRIM Inactive CHERATUSSIN AC 100-10 MG/5ML SYRP 1 tsp by mouth every 4 hours as needed for cough CHERATUSSIN AC 100-10 MG/5ML SYRP 435532 GUAIFENESIN-CODEINE Inactive LEVOTHYROXINE SODIUM 75 MCG TABS Take 1 tab daily LEVOTHYROXINE SODIUM 75 MCG TABS 542011 LEVOTHYROXINE SODIUM Inactive BACTRIM DS 800-160 MG TAB 1 tab by mouth twice daily BACTRIM DS 800-160 MG TAB 513493 TRIMETHOPRIM-SULFAMETHOXAZOLE Inactive AZITHROMYCIN 250 MG TABS 2 po qd x 1 day, then 1 po qd x 4 days AZITHROMYCIN 250 MG TABS 6090877 AZITHROMYCIN Inactive CEFDINIR 300 MG CAPS by mouth twice a day CEFDINIR 300 MG CAPS 641368 CEFDINIR Inactive AZITHROMYCIN 250 MG TABS 2 pills on day 1, then 1 pill daily x 4 days AZITHROMYCIN 250 MG TABS 0738817 AZITHROMYCIN Inactive DOXYCYCLINE HYCLATE 100 MG CAP 1 cap by mouth twice daily DOXYCYCLINE HYCLATE 100 MG CAP 7847828 DOXYCYCLINE HYCLATE Inactive FUROSEMIDE 20 MG TABS 1 pill by mouth daily, for edema FUROSEMIDE 20 MG TABS 982061 FUROSEMIDE Inactive AZITHROMYCIN 250 MG TABS 2 po qd x 1 day, then 1 po qd x 4 days AZITHROMYCIN 250 MG TABS 1867742 AZITHROMYCIN Inactive CEFTIN 500 MG TAB 1 twice a day CEFTIN 500 MG TAB 801470 CEFUROXIME AXETIL Inactive CEFDINIR 300 MG CAPS 1 po BID x 10 days CEFDINIR 300 MG CAPS 145791 CEFDINIR Inactive Immunizations Vaccine Administration Date Value Standard Description Seasonal influenza vaccine, injectable, containing preservative, for > 3 years old (Afluria, FluLaval, Fluzone, Fluvirin, Fluarix, Agriflu(>=18 yo)) Fluzone (>3 yrs.) [IOT792] Influenza, seasonal, injectable influenza immunization (Flu Vax) has been administered Influenza - Unspecified Formulation [CVX88] influenza virus vaccine, unspecified formulation pneumococcal immunization administered Pneumovax 23 [CVX33] pneumococcal polysaccharide vaccine, 23 valent Seasonal influenza vaccine, injectable, containing preservative, for > 3 years old (Afluria, FluLaval, Fluzone, Fluvirin, Fluarix, Agriflu(>=18 yo)) Fluzone (>3 yrs.) [NPG873] Influenza, seasonal, injectable dT (Diphtheria and Tetanus) booster given given Td(adult) unspecified formulation Boostrix (Tetanus toxoid, reduced diphtheria toxoid and acellular pertussis vaccine, adsorbed), booster Boostrix [GQC693] tetanus toxoid, reduced diphtheria toxoid, and acellular [...] Panel - Chemistry sodium, serum 145 mmol/L 512-733 5553/06/22 potassium, serum 3.9 mmol/L 3.5-5.2 chloride, serum 109 mmol/L 98-107 carbon dioxide, venous blood 23.4 mmol/L 21.0-32.0 blood glucose 92 mg/dL 65-110 calcium, serum 8.2 mg/dL 8.5-10.1 urea nitrogen, blood 24 mg/dL 7-18 creatinine, serum 1.30 mg/dL 0.60-1.30 Lab Report: [facility] Advanced Lipid and Inlammation Panel /20531 - Chemistry cholesterol, serum 198 mg/dL 505-399 7173/04/30 HDL cholesterol, serum 65 mg/dL > OR=46 triglyceride, serum, fasting 82 mg/dL LDL cholesterol, serum 117 mg/dL cholesterol/HDL ratio, serum 3.0 calc < OR=5.0 cholesterol, serum 148 mg/dL 887-205 0715/09/02 HDL cholesterol, serum 55 mg/dL > OR=46 [...] (L) - Chemistry sodium, serum 145 mmol/L 512-712 5570/09/02 potassium, serum 4.6 mmol/L 3.5-5.2 chloride, serum [...] Rate - Chemistry sodium, serum 139 mmol/L 039-805 8304/03/24 carbon dioxide, venous blood 22.4 mmol/L 21.0-32.0 [...] 51 mg/dL 30-200 cholesterol, serum 173 mg/dL 882-584 9418/04/28 HDL cholesterol, serum 63 mg/dL 32-96 LDL cholesterol, serum 100 mg/dL 0-130 Lab Report: Lipid Panel, HEPATIC PANEL, MICROALBUMIN - Chemistry bilirubin, serum, total 0.30 mg/dL 0.00-1.00 alanine aminotransferase (SGPT), serum 19 U/L 12-78 aspartate aminotransferase (SGOT), serum 16 U/L 15-37 albumin/creatinine ratio, urine < 30 mg/g mg/g{creat} [...] mg/dL Encounters Code Encounter Date Provider Facility CPT-14182 Level 3 Est. Patient 11:30:07 CDT Rodrigo Sarah APRN [facility] CPT-33350 Level 4 Est. Patient 21:02:30 BLACK TOP PAVER OPERATOR Gab Padron MD [facility] CPT-96246 Level 3 Est. Patient 11:02:19 BLACK TOP PAVER OPERATOR Gab Padron MD [facility] CPT-58311 Level 4 Est. Patient 22:24:31 BLACK TOP PAVER OPERATOR Gab Padron MD [facility] CPT-31580 Level 3 Est. Patient 18:33:46 BLACK TOP PAVER OPERATOR Gab Padron MD [facility] CPT-08337 Level 3 Est. Patient 16:19:11 CDT Yolande Lindsay MD [facility] CPT-27211 Level 3 Est. Patient 18:59:14 CDT Yolande Lindsay MD [facility] CPT-82636 Level 4 Est. Patient 21:29:26 CDT Yolande Lindsay MD PhD [facility] CPT-13349 Level 3 Est. Patient 07:37:45 CDT Yolande Lindsay MD PhD [facility] CPT-24132 Level 3 Est. Patient 17:03:46 CDT Yolande Lindsay MD [facility]-60011 Level 4 Est. Patient 20:02:13 BLACK TOP PAVER OPERATOR Yolande Lindsay MD [facility] [place]-20105 Level 3 Est. Patient 16:02:07 BLACK TOP PAVER OPERATOR Alexis Ordaz MD [facility]-17112 Level 3 Est. Patient 12:41:24 BLACK TOP PAVER OPERATOR Yolande Lindsay MD [facility]-63489 Level 3 Est. Patient 15:41:20 BLACK TOP PAVER OPERATOR Yolande Lindsay MD [facility]-24116 Level 3 Est. Patient 13:20:02 BLACK TOP PAVER OPERATOR Yolande Lindsay MD [facility] [place]-87893 Level 3 Est. Patient 15:00:38 CDT Jared Og MD [facility]-56319 Level 3 Est. Patient 10:22:32 CDT Yolande Lindsay MD [facility] CPT-03988 Level 3 Est. Patient 17:12:58 CDT Yolande Lindsay MD [facility] [place]-24683 Level 4 Est. Patient 13:30:58 CDT Yolande Lindsay MD [facility] CPT-78522 Level 4 New Patient 09:02:42 CDT Jared Og MD [facility]-52128 Level 3 Est. Patient 08:19:07 CDT Yolande Lindsay MD [facility] [place]-19084 Level 3 Est. Patient 12:00:13 BLACK TOP PAVER OPERATOR Gab Padron MD [facility]-83332 Level 3 Est. Patient 16:15:23 BLACK TOP PAVER OPERATOR Yolande Lindsay MD [facility] [place]-37415 Level 2 Est. Patient 19:47:15 CDT Yolande Lindsay MD [facility]-96658 Level 3 Est. Patient 21:38:31 CDT Yolande Lindsay MD [facility]-07237 Level 3 Est. Patient 10:25:12 CDT Adiel PERAZA [facility]-07487 Level 4 Est. Patient 10:51:58 CDT Yolande Lindsay MD [facility] [place]-77956 Level 3 Est. Patient 14:04:55 BLACK TOP PAVER OPERATOR Rodrigo Sarah [facility]-35464 Level 3 Est. Patient 10:46:35 BLACK TOP PAVER OPERATOR Rodrigo Sarah [facility]-37336 Level 3 Est. Patient 14:24:37 BLACK TOP PAVER OPERATOR Yolande Lindsay MD [facility] [place]-09589 Level 3 Est. Patient 17:41:58 BLACK TOP PAVER OPERATOR Yolande Lindsay MD [facility]-07079 Level 2 Est. Patient 22:01:41 BLACK TOP PAVER OPERATOR Rodrigo Sarah [facility]-22966 Level 2 Est. Patient 22:01:11 BLACK TOP PAVER OPERATOR Rodrigo Sarah [facility]-13017 Level 3 Est. Patient 10:12:29 BLACK TOP PAVER OPERATOR Rodrigo Sarah [facility]-97907 Level 3 Est. Patient 11:05:44 CDT Alexis Ordaz MD [facility]-50055 Level 3 Est. Patient 14:57:20 CDT Yolande Lindsay MD [facility]-95487 Level 3 Est. Patient 14:40:57 CDT Yolande Lindsay MD [facility]-48038 Level 3 Est. Patient 20:55:40 CDT Yolande Lindsay MD PhD [facility] CPT-49300 Level 3 Est. Patient 12:42:38 BLACK TOP PAVER OPERATOR Yolande Lindsay MD PhD [facility] CPT-79667 Level 3 Est. Patient 11:54:49 BLACK TOP PAVER OPERATOR Des Hines MD [facility] CPT-15401 Level 3 Est. Patient 17:06:38 CDT Dewayne PERAZA [facility] Procedures Code Procedure Name Date Entry Date Standard Description CPT-53732 LS spine comp w obliq 13:28:00 BLACK TOP PAVER OPERATOR CPT-J1040 Depo Medrol 80 mg (Methyl Prednisolone Acetate) 10:51: 28 BLACK TOP PAVER OPERATOR CPT-J1100 Decadron 8mg (Dexamethasone) 10:51:28 BLACK TOP PAVER OPERATOR CPT-63222 Abx/Therapy Injection 10:51:28 BLACK TOP PAVER OPERATOR CPT-J1100 Decadron 8mg (Dexamethasone) 21:02:30 BLACK TOP PAVER OPERATOR CPT-J1040 Depo Medrol 80 mg (Methyl Prednisolone Acetate) 21:02: 30 BLACK TOP PAVER OPERATOR [id number] Event Monitor - MC Transmission 09:12:32 CDT 08/06 [id number] Event Monitor - MC review and interp 09:12:32 CDT [id number] Event Monitor - MC recording 09:12:32 CDT CPT-34567 EKG Trac and Interp 16:50:22 CDT CPT-J1030 Depo Medrol 40 mg (Methyl Prednisolone Acetate) 17:05: 54 CDT CPT-J1100 Decadron 4mg (Dexamethasone) 17:05:54 CDT CPT-26851 Abx/Therapy Injection 17:05:54 CDT CPT-J1100 Decadron 4mg (Dexamethasone) 16:55:28 CDT CPT-J1030 Depo Medrol 40 mg (Methyl Prednisolone Acetate) 16:55: 28 CDT CPT-70608 Ankle Complete - Min 3V 15:58:50 CDT CPT-67812 Knee 3V 15:58:50 CDT CPT-21239 Hip comp min 2V 15:58:50 CDT CPT-J2270 Morphine Sulfate 10 mg 14:25:44 BLACK TOP PAVER OPERATOR CPT-J2550 Phenergan 12.5 mg (Promethazine) 14:25:44 BLACK TOP PAVER OPERATOR CPT-29047 Abx/Therapy Injection 14:25:44 BLACK TOP PAVER OPERATOR CPT-J2550 Phenergan 12.5 mg (Promethazine) 14:08:03 BLACK TOP PAVER OPERATOR CPT-J2270 Morphine Sulfate 10 mg 14:08:03 BLACK TOP PAVER OPERATOR CPT-19289 Bladder Scan 15:00:38 CDT CPT-TCMM Transitional Care Mgmt-Moderate 09:52:22 CDT CPT-J1030 Depo Medrol 40 mg (Methyl Prednisolone Acetate) 10:55: 18 CDT CPT-J1100 Decadron 4mg (Dexamethasone) 10:55:18 CDT CPT-72013 Abx/Therapy Injection 10:55:18 CDT CPT-J1030 Depo Medrol 40 mg (Methyl Prednisolone Acetate) 10:22: 32 CDT CPT-J1100 Decadron 4mg (Dexamethasone) 10:22:32 CDT CPT-11590 Postop F/U Visit 14:37:13 CDT CPT-62150 Ankle Complete - Min 3V 17:11:58 CDT CPT-06223 Foot comp min 3V 17:11:58 CDT CPT-54370 Bladder Scan 09:56:58 CDT CPT-53602 Postop F/U Visit 09:56:58 CDT CPT-58224 Cystoscopy 09:02:42 CDT CPT-06341 Bladder Scan 09:02:42 CDT CPT-87118 Abd single AP View 16:00:35 CDT CPT-94977 Administration single or combination vaccine inc oral 10 :15:43 CDT CPT-04448 Influenza split virus > age 3 10:15:43 CDT CPT-00262 Nail Avulsion 09:24:57 CDT CPT-OV Office Visit 11:15:41 CDT CPT-09860 Abx/Therapy Injection 10:51:30 CDT CPT-J3301 Kenalog 40 mg (Triamcinolone Acetonide) 10:25:12 CDT CPT-J1100 Decadron 4mg (Dexamethasone) 10:25:12 CDT CPT-86145 Anoscopy diagnostic 10:36:12 CDT CPT-OV Office Visit 15:34:31 CDT CPT-98757 Abx/Therapy Injection 08:21:15 BLACK TOP PAVER OPERATOR CPT-J1885 Toradol 60 mg (Ketorolac) 10:46:35 BLACK TOP PAVER OPERATOR CPT-OV Office Visit 19:51:16 BLACK TOP PAVER OPERATOR CPT-75558 Spec Collection and Handling Fee 14:34:18 BLACK TOP PAVER OPERATOR CPT-PV Prev. Care Visit 14:19:18 BLACK TOP PAVER OPERATOR CPT-09191 Postop F/U Visit 14:47:51 BLACK TOP PAVER OPERATOR CPT-56063 Postop F/U Visit 15:15:14 BLACK TOP PAVER OPERATOR CPT-68349 Postop F/U Visit 14:41:43 CDT CPT-79295 Postop F/U Visit 15:47:46 CDT CPT-OV Office Visit 15:27:23 CDT CPT-OV Office Visit 17:20:34 CDT CPT-76217 Abx/Therapy Injection 15:05:57 CDT CPT-J1100 Decadron 8mg (Dexamethasone) 14:44:57 CDT CPT-J1040 Depo Medrol 80 mg (Methyl Prednisolone Acetate) 14:44: 57 CDT CPT-JTINJ Joint Injection 10:17:37 CDT CPT-13436 Administration 2+ single or combination vaccines inc oral 13:01:46 BLACK TOP PAVER OPERATOR CPT-45307 Administration single or combination vaccine inc oral 13 :01:46 BLACK TOP PAVER OPERATOR CPT-27214 Pneumovax 13:01:46 BLACK TOP PAVER OPERATOR CPT-64223 Influenza split virus > age 3 13:01:46 BLACK TOP PAVER OPERATOR CPT-99275 Administration single or combination vaccine inc oral 08 :56:49 CDT CPT-86839 Tdap 08:56:49 CDT
--- OUTSIDE RECORDS SUMMARY | 2017-03-21 22:33 | XMS REPORT | Clinical Summary ---
Author Author Admin, MARGRET Organization [employer] Address Unknown Phone Unavailable Allergies, Adverse Reactions, Alerts Allergy Name Reaction Description Start Date Severity Status Provider VALENTIN Critical Active Rodrigo Montemayorl MAINTENANCE WELDER CHLORHEXIDINE GLUCONATE tongue and gums swollen Critical Active Hoa Kabaford RMA NORFLEX Rash Critical Active Silvestrellina Frazell MAINTENANCE WELDER TRAZODONE HCL sees things Critical Active [...] hx of 412 Active Hoa Otto [facility] Old myocardial infarction Pelvic pain 789.09 Active Yolande Lindsay MD PhD Abdominal pain, other specified site; multiple sites Edema 782.3 Active Yolande Lindsay MD PhD Edema Rash 782.1 Active Yolande Lindsay MD PhD Rash and other nonspecific skin eruption Back pain, lumbar 724.2 Active Gab Padron MD Lumbago Cough 786.2 Active Jillina Tyrel MAINTENANCE WELDER Cough 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 Jillina Frazellilian MAINTENANCE WELDER 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 Anemia 285.9 Active Gab Padron MD Anemia, unspecified Conjunctivitis 372.30 Active Jillina Tyrel MAINTENANCE WELDER Conjunctivitis, unspecified Sinusitis 473.9 Active Jillina Frazell MAINTENANCE WELDER Unspecified sinusitis (chronic) Nonspecific syndrome suggestive of viral illness 079.99 Active Rodrigo Sarah APRN Unspecified viral infection Laryngitis 464.00 Active Jillina Tyrel MAINTENANCE WELDER Acute laryngitis without mention of obstruction [...] every 6 hrs prn pain TRAMADOL HCL 86999371583 Active Gab Padron MD Active PREDNISONE 20 MG TAB 2 tabs daily for 3 days, 1 tab daily for 3 days, 1/2 tab daily for 2 days PREDNISONE 75259956945 No Longer Active Gab Padron MD Active ZOFRAN ODT 4 MG TBDP 1 po q6hr PRN Nausea ONDANSETRON 25506515490 Active Gab Padron MD Active IBUPROFEN 600 MG TAB 1 tablet by mouth every 6 hours for 7 days, then 1 tablet every 6 hours as needed. Take with food IBUPROFEN 72871249370 Active Jillina Frazell MAINTENANCE WELDER Active BACTRIM DS 800-160 MG TAB 1 tab by mouth twice daily TRIMETHOPRIM-SULFAMETHOXAZOLE 21299008096 No Longer Active Gab Padron MD Active ADVAIR DISKUS 250-50 MCG/DOSE AEPB 1 puff BID FLUTICASONE- SALMETEROL 76110378798 Active Silvestrellnacho Sarah APRN Active LEVOTHYROXINE SODIUM 75 MCG TABS Take 1 tab daily LEVOTHYROXINE SODIUM 85035551683 No Longer Active Mariana Cuadra [facility] Active SYNTHROID 88 MCG ORAL TABS Take one by mouth daily LEVOTHYROXINE SODIUM 77734841099 Active Gab Padron MD Active CHERATUSSIN AC 100-10 MG/5ML SYRP 1 tsp by mouth every 4 hours as needed for cough GUAIFENESIN-CODEINE 41347766934 No Longer Active Gab Padron MD Active POLYTRIM 49816-6.1 UNIT/ML-% SOLN 1 gtt to affected eye q3h x 7 days POLYMYXIN B-TRIMETHOPRIM 05383377152 No Longer Active Gab Padron MD Active FLUTICASONE PROPIONATE 50 MCG/ACT SUSP 1 to 2 sprays each nostril daily 04/21 FLUTICASONE PROPIONATE 66378177945 No Longer Active Gab Padron MD Active TRILEPTAL 600 MG TABS Take one 1 tablet in Am and 1 tablet at night OXCARBAZEPINE 34183250587 Active Gab Padron MD Active CEFDINIR 300 MG CAPS 1 po BID x 10 days CEFDINIR 43918184672 No Longer Active Rodrigo Sarah APRN Active CEFTIN 500 MG TAB 1 twice a day CEFUROXIME AXETIL 93015102407 No Longer Active Gab Padron MD Active AZITHROMYCIN 250 MG TABS 2 po qd x 1 day, then 1 po qd x 4 days AZITHROMYCIN 08662678021 No Longer Active Rodrigo Sarah APRN Active CLARITIN 10 MG TAB 1 tablet by mouth daily as needed for allergies LORATADINE 19238492752 Active Rodrigo Sarah APRN Active OXYCODONE HCL 5 MG ORAL CAPS 1 TAB PO Q HS OXYCODONE HCL 79678495671 No Longer Active Rodrigo Sarah APRN Active NIASPAN 500 MG ORAL CR-TABS 1 pill nightly x 1 week, then 2 pills nightly x 1 week, then 3 pills nightly x 1 week, then 4 pills nightly NIACIN (ANTIHYPERLIPIDEMIC) 93822793837 No Longer Active Rodrigo Sarah APRN Active NIACIN 500 MG TABS 1 pill by mouth nightly x 1 week, then 2 pills x 1 week, then 3 pills x 1 week, then 4 pills nightly - take after evening meal, with applesauce or an apple NIACIN 57490157627 No Longer Active Yolande Lindsay MD PhD Active FISH OIL 1000 MG CAPS 3 pills daily OMEGA-3 FATTY ACIDS 10354877501 Active Yolande Lindsay MD PhD Active TRIAMCINOLONE ACETONIDE 0.1 % CREA apply bid sparingly to rash TRIAMCINOLONE ACETONIDE 85435789156 Active Yolande Lindsay MD PhD Active FUROSEMIDE 20 MG TAB 1 tablet by mouth daily FUROSEMIDE 22397102772 Active Tisha Lambert APRN Active LISINOPRIL 20 MG ORAL TABS 1 tab by mouth daily LISINOPRIL 93414883617 Active Tisha Lambert APRN Active FUROSEMIDE 20 MG TABS 1 pill by mouth daily, for edema FUROSEMIDE 74955046700 No Longer Active Yolande Lindsay MD PhD Active ATORVASTATIN CALCIUM 10 MG TABS 1 pill by mouth daily, for cholesterol 09/06 ATORVASTATIN CALCIUM 07815608973 Active Gab Padron MD Active CALCIUM 600+D PLUS MINERALS 600-400 MG-UNIT ORAL CHEW 1 tab by mouth daily CALCIUM CARBONATE-VIT D-MIN 88532815854 No Longer Active Yolande Lindsay MD PhD Active CYCLOBENZAPRINE HCL 10 MG TABS 1 tablet by mouth three times daily as needed for muscle spasm/pain CYCLOBENZAPRINE HCL 57938580413 Active Yolande Lindsay MD PhD Active ONDANSETRON 4 MG TBDP 1 q4h PRN nausea ONDANSETRON 51559561138 Active Yolande Lindsay MD PhD Active ADULT ASPIRIN EC LOW STRENGTH 81 MG TBEC Take 1 tablet by mouth daily 2014 ASPIRIN 69057131605 No Longer Active Yolande Lindsay MD PhD Active ZOFRAN ODT 4 MG TBDP 1 pill dissolved by mouth every 4 hours if needed for nausea ONDANSETRON 59734332186 No Longer Active Yolande Lindsay MD PhD Active CEFTIN 500 MG TAB 1 twice a day CEFUROXIME AXETIL 89177720448 No Longer Active Yolande Lindsay MD PhD Active ALBUTEROL SULFATE 0.083 % NEBU SOLN one vial per nebulizer every 4-6 hours as needed ALBUTEROL SULFATE 93567592673 No Longer Active Alexis Ordaz MD Active DOXYCYCLINE HYCLATE 100 MG CAP 1 cap by mouth twice daily DOXYCYCLINE HYCLATE 74931321728 No Longer Active Yolande Lindsay MD PhD Active CYCLOBENZAPRINE HCL 10 MG TABS 1/2 - 1 tab by mouth three times daily if needed for spasms/pain CYCLOBENZAPRINE HCL 81108595119 No Longer Active Yolande Lindsay MD PhD Active AZITHROMYCIN 250 MG TABS 2 pills on day 1, then 1 pill daily x 4 days AZITHROMYCIN 83889452178 No Longer Active Yolande Lindsay MD PhD Active XOPENEX 1.25 MG/3ML NEBU 1 neb every 4 hours if needed for cough/congestion LEVALBUTEROL HCL 92476057312 No Longer Active Yolande Lindsay MD PhD Active DOXYCYCLINE HYCLATE 100 MG TAB 1 tab twice a day for 14 days 2013 DOXYCYCLINE HYCLATE 52542438248 No Longer Active Yolande Lindsay MD PhD Active PREVACID 30 MG CPDR Take 1 tablet by mouth daily-PRN LANSOPRAZOLE 78258318508 No Longer Active Yolande Lindsay MD PhD Active PA VITAMIN D-3 2000 UNIT CAPS 1 CAP PO DAILY CHOLECALCIFEROL 99143662326 No Longer Active Yolande Lindsay MD PhD Active CEFDINIR 300 MG CAPS by mouth twice a day CEFDINIR 74812946399 No Longer Active Gab Padron MD Active TOPAMAX 50 MG TABS 1 PO twice daily TOPIRAMATE 15736708736 Active Yolande Lindsay MD PhD Active AZITHROMYCIN 250 MG TABS 2 po qd x 1 day, then 1 po qd x 4 days AZITHROMYCIN 72881417433 No Longer Active Yolande Lindsay MD PhD Active DICLOFENAC SODIUM 75 MG TBEC 1 tablet by q 12 hours PRN headaches DICLOFENAC SODIUM 76784033176 No Longer Active Yolande Lindsay MD PhD Active FLONASE 50 MCG/ACT SUSP 1 spray each nostril am and hs FLUTICASONE PROPIONATE 28920906184 No Longer Active Todd Callaway MD Active ANUSOL-HC 25 MG SUPPOSITORY 1 rectally twice a day as needed for hemorrhoids HYDROCORTISONE JAYDEN (RECTAL) 29780195097 No Longer Active Yolande Lindsay MD PhD Active ANUSOL-HC 25 MG SUPPOSITORY 1 suppository rectally each evening as needed for anal fissure HYDROCORTISONE JAYDEN (RECTAL) 66804243600 No Longer Active [place] Active VALIUM 5 MG TAB 1 po 30 minutes prior to your MRI DIAZEPAM 43431097515 No Longer Active Bozena LONNIE Coleman Active METHOCARBAMOL 750 MG TABS 1 PO QID PRN METHOCARBAMOL 30195988493 No Longer Active Daphne Wetzel MAINTENANCE WELDER Active NITROSTAT 0.4 MG SUBL as directed NITROGLYCERIN 83357532926 No Longer Active Rodrigo Sarah MAINTENANCE WELDER Active ROBAXIN-750 750 MG TABS 2 four times a day for 3 days as needed for muscle spasm, then 1 four times a day as needed METHOCARBAMOL 29329508258 No Longer Active Rodrigo Sarah APRN Active HYDROCODONE-ACETAMINOPHEN 5-325 MG TABS 1 q 4-6 hrs prn HYDROCODONE-ACETAMINOPHEN 71408802900 No Longer Active Rodrigo Sarah APRN Active VERAPAMIL HCL CR 180 MG CR-TABS TAKE 1 TAB DAILY VERAPAMIL HCL 17572566815 No Longer Active Yolande Lindsay MD PhD Active BACTRIM DS 800-160 MG TAB 1 tab by mouth twice daily TRIMETHOPRIM-SULFAMETHOXAZOLE 67169738655 No Longer Active Yolande Lindsay MD PhD Active NEXIUM 40 MG PACK 1 by mouth daily ESOMEPRAZOLE MAGNESIUM 58058575981 No Longer Active Des Hines MD Active EPIPEN 2-CHARLETTE 0.3 MG/0.3ML OMARI as need for allergic reaction EPINEPHRINE 70228102744 Active Yolande Lindsay MD PhD Active NEXIUM 40 MG CPDR 1 PO Q D DAY ESOMEPRAZOLE MAGNESIUM 11558553566 No Longer Active Sadia Perry RN Active NEXIUM 40 MG PACK 1 by mouth daily NEXIUM 40 MG PACK ESOMEPRAZOLE MAGNESIUM Inactive VERAPAMIL HCL CR 180 MG CR-TABS TAKE 1 TAB DAILY VERAPAMIL HCL CR 180 MG CR-TABS VERAPAMIL HCL Inactive HYDROCODONE-ACETAMINOPHEN 5-325 MG TABS 1 q 4-6 hrs prn HYDROCODONE-ACETAMINOPHEN 5-325 MG TABS 384123 HYDROCODONE-ACETAMINOPHEN Inactive ROBAXIN-750 750 MG TABS 2 four times a day for 3 days as needed for muscle spasm, then 1 four times a day as needed ROBAXIN-750 750 MG TABS 234784 METHOCARBAMOL Inactive NITROSTAT 0.4 MG SUBL as directed NITROSTAT 0.4 MG SUBL 667864 NITROGLYCERIN Inactive METHOCARBAMOL 750 MG TABS 1 PO QID PRN METHOCARBAMOL 750 MG TABS 665621 METHOCARBAMOL Inactive VALIUM 5 MG TAB 1 po 30 minutes prior to your MRI VALIUM 5 MG TAB 589183 DIAZEPAM Inactive ANUSOL-HC 25 MG SUPPOSITORY 1 suppository rectally each evening as needed for anal fissure ANUSOL-HC 25 MG SUPPOSITORY 0340659 HYDROCORTISONE JAYDEN (RECTAL) Inactive ANUSOL-HC 25 MG SUPPOSITORY 1 rectally twice a day as needed for hemorrhoids ANUSOL-HC 25 MG SUPPOSITORY 6375148 HYDROCORTISONE JAYDEN (RECTAL) Inactive FLONASE 50 MCG/ACT SUSP 1 spray each nostril am and hs FLONASE 50 MCG/ACT SUSP FLUTICASONE PROPIONATE Inactive DICLOFENAC SODIUM 75 MG TBEC 1 tablet by q 12 hours PRN headaches DICLOFENAC SODIUM 75 MG TBEC 925345 DICLOFENAC SODIUM Inactive PA VITAMIN D-3 2000 UNIT CAPS 1 CAP PO DAILY PA VITAMIN D-3 2000 UNIT CAPS CHOLECALCIFEROL Inactive PREVACID 30 MG CPDR Take 1 tablet by mouth daily-PRN PREVACID 30 MG CPDR 668916 LANSOPRAZOLE Inactive DOXYCYCLINE HYCLATE 100 MG TAB 1 tab twice a day for 14 days 2013 DOXYCYCLINE HYCLATE 100 MG TAB 8407420 DOXYCYCLINE HYCLATE Inactive XOPENEX 1.25 MG/3ML NEBU 1 neb every 4 hours if needed for cough/congestion XOPENEX 1.25 MG/3ML NEBU 370471 LEVALBUTEROL HCL Inactive CYCLOBENZAPRINE HCL 10 MG TABS 1/2 - 1 tab by mouth three times daily if needed for spasms/pain CYCLOBENZAPRINE HCL 10 MG TABS 035816 CYCLOBENZAPRINE HCL Inactive ALBUTEROL SULFATE 0.083 % NEBU SOLN one vial per nebulizer every 4-6 hours as needed ALBUTEROL SULFATE 0.083 % NEBU SOLN 870139 ALBUTEROL SULFATE Inactive CEFTIN 500 MG TAB 1 twice a day CEFTIN 500 MG TAB 291972 CEFUROXIME AXETIL Inactive ZOFRAN ODT 4 MG TBDP 1 pill dissolved by mouth every 4 hours if needed for nausea ZOFRAN ODT 4 MG TBDP 824308 ONDANSETRON Inactive ADULT ASPIRIN EC LOW STRENGTH 81 MG TBEC Take 1 tablet by mouth daily 2014 ADULT ASPIRIN EC LOW STRENGTH 81 MG TBEC 399454 ASPIRIN Inactive CALCIUM 600+D PLUS MINERALS 600-400 [...] or an apple NIACIN 500 MG TABS 876556 NIACIN Inactive NIASPAN 500 MG ORAL CR-TABS 1 pill nightly x 1 week, then 2 pills nightly x 1 week, then 3 pills nightly x 1 week, then 4 pills nightly NIASPAN 500 MG ORAL CR-TABS NIACIN (ANTIHYPERLIPIDEMIC) Inactive OXYCODONE HCL 5 MG ORAL CAPS 1 TAB PO Q HS OXYCODONE HCL 5 MG ORAL CAPS 8741583 OXYCODONE HCL Inactive FLUTICASONE PROPIONATE 50 MCG/ACT SUSP 1 to 2 sprays each nostril daily 04/21 FLUTICASONE PROPIONATE 50 MCG/ACT SUSP 6796107 FLUTICASONE PROPIONATE Inactive POLYTRIM 22282-9.1 UNIT/ML-% SOLN 1 gtt to affected eye q3h x 7 days POLYTRIM 78810-9.1 UNIT/ML-% SOLN 717291 POLYMYXIN B- TRIMETHOPRIM Inactive CHERATUSSIN AC 100-10 MG/5ML SYRP 1 tsp by mouth every 4 hours as needed for cough CHERATUSSIN AC 100-10 MG/5ML SYRP 201288 GUAIFENESIN-CODEINE Inactive LEVOTHYROXINE SODIUM 75 MCG TABS Take 1 tab daily LEVOTHYROXINE SODIUM 75 MCG TABS 253882 LEVOTHYROXINE SODIUM Inactive BACTRIM DS 800-160 MG TAB 1 tab by mouth twice daily BACTRIM DS 800-160 MG TAB 106292 TRIMETHOPRIM-SULFAMETHOXAZOLE Inactive AZITHROMYCIN 250 MG TABS 2 po qd x 1 day, then 1 po qd x 4 days AZITHROMYCIN 250 MG TABS 4099337 AZITHROMYCIN Inactive CEFDINIR 300 MG CAPS by mouth twice a day CEFDINIR 300 MG CAPS 741897 CEFDINIR Inactive AZITHROMYCIN 250 MG TABS 2 pills on day 1, then 1 pill daily x 4 days AZITHROMYCIN 250 MG TABS 8840099 AZITHROMYCIN Inactive DOXYCYCLINE HYCLATE 100 MG CAP 1 cap by mouth twice daily DOXYCYCLINE HYCLATE 100 MG CAP 1310101 DOXYCYCLINE HYCLATE Inactive FUROSEMIDE 20 MG TABS 1 pill by mouth daily, for edema FUROSEMIDE 20 MG TABS 744579 FUROSEMIDE Inactive AZITHROMYCIN 250 MG TABS 2 po qd x 1 day, then 1 po qd x 4 days AZITHROMYCIN 250 MG TABS 6139783 AZITHROMYCIN Inactive CEFTIN 500 MG TAB 1 twice a day CEFTIN 500 MG TAB 908841 CEFUROXIME AXETIL Inactive CEFDINIR 300 MG CAPS 1 po BID x 10 days CEFDINIR 300 MG CAPS 357304 CEFDINIR Inactive BACTRIM DS 800-160 MG TAB 1 tab by mouth twice daily BACTRIM DS 800-160 MG TAB 534580 TRIMETHOPRIM-SULFAMETHOXAZOLE Inactive PREDNISONE 20 MG TAB 2 tabs daily for 3 days, 1 tab daily for 3 days, 1/2 tab daily for 2 days PREDNISONE 20 MG TAB 188365 PREDNISONE Inactive Immunizations Vaccine Administration Date Value Standard Description Seasonal influenza vaccine, injectable, containing preservative, for > 3 years old (Afluria, FluLaval, Fluzone, Fluvirin, Fluarix, Agriflu(>=18 yo)) Fluzone (>3 yrs.) [RSA234] Influenza, seasonal, injectable influenza immunization (Flu Vax) has been administered Influenza - Unspecified Formulation [CVX88] influenza virus vaccine, unspecified formulation Seasonal influenza vaccine, injectable, containing preservative, for > 3 years old (Afluria, FluLaval, Fluzone, Fluvirin, Fluarix, Agriflu(>=18 yo)) Fluzone (>3 yrs.) [RVX456] Influenza, seasonal, injectable pneumococcal immunization administered Pneumovax 23 [CVX33] pneumococcal polysaccharide vaccine, 23 valent dT (Diphtheria and Tetanus) booster given given Td(adult) unspecified formulation Boostrix (Tetanus toxoid, reduced diphtheria toxoid and acellular pertussis vaccine, adsorbed), booster Boostrix [HMI374] tetanus toxoid, reduced diphtheria toxoid, and acellular [...] Panel - Chemistry sodium, serum 142 mmol/L 348-126 4445/06/30 potassium, serum 4.4 mmol/L 3.5-5.2 chloride, serum [...] Rate - Chemistry sodium, serum 139 mmol/L 147-862 9108/03/24 carbon dioxide, venous blood 22.4 mmol/L 21.0-32.0 [...] ... - Chemistry sodium, serum 143 mmol/L 416-633 9271/05/02 carbon dioxide, venous blood 25.6 mmol/L 21.0-32.0 [...] PANEL - Chemistry cholesterol, serum 166 mg/dL 775-493 7806/12/06 triglyceride, serum, fasting 86 mg/dL 30-200 HDL [...] Negative mg/dL Negative sodium, serum 142 mmol/L 950-850 7942/07/18 carbon dioxide, venous blood 27.8 mmol/L 21.0-32.0 [...] negative Encounters Code Encounter Date Provider Facility CPT-16520 Level 3 Est. Patient 17:43:55 MEDIA JOB TITLES Gab Padron MD [facility] CPT-72157 Level 3 Est. Patient 17:07:49 MEDIA JOB TITLES Jared Og MD [facility] CPT-20186 Level 4 Est. Patient 19:55:18 MEDIA JOB TITLES Jared Og MD [facility] CPT-83415 Level 3 Est. Patient 20:13:34 MEDIA JOB TITLES Jared Og MD [facility] CPT-73015 Level 4 Est. Patient 16:31:27 CDT Gab Padron MD [facility] CPT-75676 Level 2 Est. Patient 12:23:38 CDT Jared Og MD [facility] CPT-35298 Level 3 Est. Patient 11:01:51 CDT Gab Padron MD [facility] CPT-46557 Level 3 Est. Patient 15:27:02 CDT Jared Og MD [facility] CPT-16628 Level 4 Est. Patient 09:25:27 CDT Gab Padron MD [facility] CPT-38201 Level 3 Est. Patient 10:29:41 CDT Rodrigo Sarah [facility] CPT-13250 Level 4 Est. Patient 17:51:05 CDT Gab Padron MD [facility] CPT-22694 Level 3 Est. Patient 14:18:08 CDT Gab Padron MD [facility] CPT-49716 Level 4 Est. Patient 10:18:54 CDT Gab Padron MD [facility] CPT-77406 Level 3 Est. Patient 11:30:07 CDT Rodrigo Sarah [facility] CPT-93598 Level 4 Est. Patient 21:02:30 MEDIA JOB TITLES Gab Padron MD [facility] CPT-14962 Level 3 Est. Patient 11:02:19 MEDIA JOB TITLES Gab Padron MD [facility] CPT-82383 Level 4 Est. Patient 22:24:31 MEDIA JOB TITLES Gab Padron MD [facility] CPT-71786 Level 3 Est. Patient 18:33:46 MEDIA JOB TITLES Gab Padron MD [facility] CPT-57776 Level 3 Est. Patient 16:19:11 CDT Yolande Lindsay MD [facility]-02227 Level 3 Est. Patient 18:59:14 CDT Yolande Lindsay MD [facility]-79108 Level 4 Est. Patient 21:29:26 CDT Yolande Lindsay MD [facility]-09655 Level 3 Est. Patient 07:37:45 CDT Yolande Lindsay MD [facility]-77944 Level 3 Est. Patient 17:03:46 CDT Yolande Lindsay MD [facility]-63394 Level 4 Est. Patient 20:02:13 MEDIA JOB TITLES Yolande Lindsay MD [facility]-28198 Level 3 Est. Patient 16:02:07 MEDIA JOB TITLES Alexis Ordaz MD [facility]-67231 Level 3 Est. Patient 12:41:24 MEDIA JOB TITLES Yolande Lindsay MD [facility]-44629 Level 3 Est. Patient 15:41:20 MEDIA JOB TITLES Yolande Lindsay MD [facility]-74976 Level 3 Est. Patient 13:20:02 MEDIA JOB TITLES Yolande Lindsay MD [facility]-13539 Level 3 Est. Patient 15:00:38 CDT Jared Og MD [facility]-32205 Level 3 Est. Patient 10:22:32 CDT Yolande Lindsay MD [facility]-56286 Level 3 Est. Patient 17:12:58 CDT Yolande Lindsay MD [facility]-71466 Level 4 Est. Patient 13:30:58 CDT Yolande Lindsay MD [facility]-18539 Level 4 New Patient 09:02:42 CDT Jared Og MD [facility]-05325 Level 3 Est. Patient 08:19:07 CDT Yolande Lindsay MD [facility]-09676 Level 3 Est. Patient 12:00:13 MEDIA JOB TITLES Gab Padron MD [facility]-48505 Level 3 Est. Patient 16:15:23 MEDIA JOB TITLES Yolande Lindsay MD [facility]-94227 Level 2 Est. Patient 19:47:15 CDT Yolande Lindsay MD [facility]-82460 Level 3 Est. Patient 21:38:31 CDT Yolande Lindsay MD [facility]-80506 Level 3 Est. Patient 10:25:12 CDT Adiel PERAZA [facility]-88867 Level 4 Est. Patient 10:51:58 CDT Yolande Lindsay MD [facility]-20823 Level 3 Est. Patient 14:04:55 MEDIA JOB TITLES Rodrigo Sarah [facility]-90815 Level 3 Est. Patient 10:46:35 MEDIA JOB TITLES Rodrigo Sarah [facility]-20152 Level 3 Est. Patient 14:24:37 MEDIA JOB TITLES Yolande Lindsay MD [facility]-63030 Level 3 Est. Patient 17:41:58 MEDIA JOB TITLES Yolande Lindsay MD [facility]-66698 Level 2 Est. Patient 22:01:41 MEDIA JOB TITLES Rodrigo Sarah [facility]-59418 Level 2 Est. Patient 22:01:11 MEDIA JOB TITLES Rodrigo Sarah [facility]-72759 Level 3 Est. Patient 10:12:29 MEDIA JOB TITLES Rodrigo Sarah [facility]-38701 Level 3 Est. Patient 11:05:44 CDT Alexis rOdaz MD [facility] CPT-32789 Level 3 Est. Patient 14:57:20 CDT Yolande Lindsay MD [facility] CPT-31161 Level 3 Est. Patient 14:40:57 CDT Yolande Lindsay MD [facility] CPT-85041 Level 3 Est. Patient 20:55:40 CDT Yolande Lindsay MD [facility] CPT-00149 Level 3 Est. Patient 12:42:38 MEDIA JOB TITLES Yolande Lindsay MD [facility] CPT-65628 Level 3 Est. Patient 11:54:49 MEDIA JOB TITLES Des Hines MD [facility] CPT-18459 Level 3 Est. Patient 17:06:38 CDT Dewayne PERAZA [facility] Procedures Code Procedure Name Date Entry Date Standard Description CPT-01254 Hip, complete, 2-3 views - XRAY USE ONLY 17:19:04 MEDIA JOB TITLES CPT-76322 Venipuncture Draw Fee 08:37:59 MEDIA JOB TITLES CPT-26095 Liver Profile - LAB USE ONLY 08:37:59 MEDIA JOB TITLES CPT-24837 Lipid - LAB USE ONLY 08:37:58 MEDIA JOB TITLES CPT-57469 First Vx - Ix admin via ID IM or jet injects without counseling by physician 11:52:31 CDT CPT-49236 Fluzone Preservative Free Intramuscular Suspension 11:52 :31 CDT CPT-20274 Foot, left, comp min 3V - XRAY USE ONLY 09:24:54 CDT CPT-87016 Abd single AP View - XRAY USE ONLY 11:16:17 CDT CPT-33810 T spine AP/ Lat - XRAY USE ONLY 09:34:21 CDT CPT-34915 Chest 2V Frontal and Lat - XRAY USE ONLY 10:48:51 CDT CPT-30070 LS spine comp w obliq 13:28:00 MEDIA JOB TITLES CPT-J1040 Depo Medrol 80 mg (Methyl Prednisolone Acetate) 10:51: 28 MEDIA JOB TITLES CPT-J1100 Decadron 8mg (Dexamethasone) 10:51:28 MEDIA JOB TITLES CPT-29961 Abx/Therapy Injection 10:51:28 MEDIA JOB TITLES CPT-J1100 Decadron 8mg (Dexamethasone) 21:02:30 MEDIA JOB TITLES CPT-J1040 Depo Medrol 80 mg (Methyl Prednisolone Acetate) 21:02: 30 MEDIA JOB TITLES [id number] Event Monitor - MC Transmission 09:12:32 CDT 08/06 [id number] Event Monitor - MC review and interp 09:12:32 CDT [id number] Event Monitor - MC recording 09:12:32 CDT CPT-76073 EKG Trac and Interp 16:50:22 CDT CPT-J1030 Depo Medrol 40 mg (Methyl Prednisolone Acetate) 17:05: 54 CDT CPT-J1100 Decadron 4mg (Dexamethasone) 17:05:54 CDT CPT-82561 Abx/Therapy Injection 17:05:54 CDT CPT-J1100 Decadron 4mg (Dexamethasone) 16:55:28 CDT CPT-J1030 Depo Medrol 40 mg (Methyl Prednisolone Acetate) 16:55: 28 CDT CPT-98702 Ankle Complete - Min 3V 15:58:50 CDT CPT-69472 Knee 3V 15:58:50 CDT CPT-40387 Hip comp min 2V 15:58:50 CDT CPT-J2270 Morphine Sulfate 10 mg 14:25:44 MEDIA JOB TITLES CPT-J2550 Phenergan 12.5 mg (Promethazine) 14:25:44 MEDIA JOB TITLES CPT-10914 Abx/Therapy Injection 14:25:44 MEDIA JOB TITLES CPT-J2550 Phenergan 12.5 mg (Promethazine) 14:08:03 MEDIA JOB TITLES CPT-J2270 Morphine Sulfate 10 mg 14:08:03 MEDIA JOB TITLES CPT-53189 Bladder Scan 15:00:38 CDT CPT-TCMM Transitional Care Mgmt-Moderate 09:52:22 CDT CPT-J1030 Depo Medrol 40 mg (Methyl Prednisolone Acetate) 10:55: 18 CDT CPT-J1100 Decadron 4mg (Dexamethasone) 10:55:18 CDT CPT-27698 Abx/Therapy Injection 10:55:18 CDT CPT-J1030 Depo Medrol 40 mg (Methyl Prednisolone Acetate) 10:22: 32 CDT CPT-J1100 Decadron 4mg (Dexamethasone) 10:22:32 CDT CPT-37026 Postop F/U Visit 14:37:13 CDT CPT-12235 Ankle Complete - Min 3V 17:11:58 CDT CPT-23841 Foot comp min 3V 17:11:58 CDT CPT-60167 Bladder Scan 09:56:58 CDT CPT-04889 Postop F/U Visit 09:56:58 CDT CPT-98661 Cystoscopy 09:02:42 CDT CPT-44035 Bladder Scan 09:02:42 CDT CPT-85069 Abd single AP View 16:00:35 CDT CPT-98813 Administration single or combination vaccine inc oral 10 :15:43 CDT CPT-16827 Influenza split virus > age 3 10:15:43 CDT CPT-53380 Nail Avulsion 09:24:57 CDT CPT-OV Office Visit 11:15:41 CDT CPT-22619 Abx/Therapy Injection 10:51:30 CDT CPT-J3301 Kenalog 40 mg (Triamcinolone Acetonide) 10:25:12 CDT CPT-J1100 Decadron 4mg (Dexamethasone) 10:25:12 CDT CPT-88797 Anoscopy diagnostic 10:36:12 CDT CPT-OV Office Visit 15:34:31 CDT CPT-63308 Abx/Therapy Injection 08:21:15 MEDIA JOB TITLES CPT-J1885 Toradol 60 mg (Ketorolac) 10:46:35 MEDIA JOB TITLES CPT-OV Office Visit 19:51:16 MEDIA JOB TITLES CPT-68925 Spec Collection and Handling Fee 14:34:18 MEDIA JOB TITLES CPT-PV Prev. Care Visit 14:19:18 MEDIA J[employer] TITLES CPT-11317 Postop F/U Visit 14:47:51 MED[employer] J[employer] TITLES CPT-18405 Postop F/U Visit 15:15:14 MEDIA JOB TITLES CPT-38353 Postop F/U Visit 14:41:43 CDT CPT-03305 Postop F/U Visit 15:47:46 CDT CPT-OV Office Visit 15:27:23 CDT CPT-OV Office Visit 17:20:34 CDT CPT-02156 Abx/Therapy Injection 15:05:57 CDT CPT-J1100 Decadron 8mg (Dexamethasone) 14:44:57 CDT CPT-J1040 Depo Medrol 80 mg (Methyl Prednisolone Acetate) 14:44: 57 CDT CPT-JTINJ Joint Injection 10:17:37 CDT CPT-22130 Administration 2+ single or combination vaccines inc oral 13:01:46 MEDIA JOB TITLES CPT-41414 Administration single or combination vaccine inc oral 13 :01:46 MEDIA JOB TITLES CPT-79890 Pneumovax 13:01:46 MEDIA JOB TITLES CPT-18607 Influenza split virus > age 3 13:01:46 MEDIA JOB TITLES CPT-78698 Administration single or combination vaccine inc oral 08 :56:49 CDT CPT-82497 Tdap 08:56:49 CDT
--- OUTSIDE RECORDS SUMMARY | 2017-03-21 22:36 | XMS REPORT | Clinical Summary ---
Author Author Admin, MARGRET Organization [facility] Address Unknown Phone Unavailable Allergies, Adverse Reactions, Alerts Allergy Name Reaction Description Start Date Severity Status Provider VALENTIN Critical Active Rodrigo Montemayorl SENIOR APPLICATION SOFTWARE ENGINEER CHLORHEXIDINE GLUCONATE tongue and gums swollen Critical Active [place] RMA NORFLEX Rash Critical Active Silvestrellina Frazell SENIOR APPLICATION SOFTWARE ENGINEER TRAZODONE HCL sees things Critical Active [...] HEALTH Old myocardial infarction Pelvic pain 789.09 Resolved [...] Padron MD Anemia, unspecified Conjunctivitis 372.30 Resolved aGb Padron MD Conjunctivitis, unspecified Sinusitis 473.9 Resolved [...] MD PhD 07/16 RECTAL BLEEDING ICD-569.3 Inactive Yolnade Lindsay MD PhD INGROWN TOENAIL ICD-703.0 Inactive Yolande Lindsay MD PhD INGROWN TOENAIL ICD-703.0 Inactive oYlande Lindsay MD PhD Hip pain, left ICD-719.45 [...] then one daily for three days PREDNISONE 37216959750 Active Gab Padron MD Active TRIAMCINOLONE ACETONIDE 0.1 % CREA apply bid sparingly to rash TRIAMCINOLONE ACETONIDE 53466123686 No Longer Active Gab Padron MD Active TRAMADOL HCL 50 MG TABS 1 tab po every 6 hrs prn pain TRAMADOL HCL 64419086664 No Longer Active Gab Padron MD Active BACTRIM DS 800-160 MG TAB 1 tab by mouth twice daily TRIMETHOPRIM-SULFAMETHOXAZOLE 95116187033 No Longer Active Tisha Lambert SENIOR APPLICATION SOFTWARE ENGINEER Active ADVAIR DISKUS 250-50 MCG/DOSE AEPB 1 puff BID FLUTICASONE-SALMETEROL 37780788377 No Longer Active Todd Callaway MD Active ONDANSETRON 4 MG TBDP 1 q4h PRN nausea ONDANSETRON 09741891962 No Longer Active LONNIE Iglesias Active FISH OIL 1000 MG CAPS 3 pills daily OMEGA-3 FATTY ACIDS 51984725763 No Longer Active LONNIE Iglesias Active CETIRIZINE HCL 10 MG ORAL TABS 1 po qd PRN Allergies CETIRIZINE HCL 66414977641 Active Gab Padron MD Active CLARITIN 10 MG TAB 1 tablet by mouth daily as needed for allergies LORATADINE 12271580394 No Longer Active Gab Padron MD Active PREDNISONE 20 MG TAB take 3 tabs daily for 3 days, 2 tabs daily for 3 days, 1 tab daily for 3 days, 1/2 tab daily for 3 days PREDNISONE 29528592567 No Longer Active Tisha Lambert APRN Active PREDNISONE 20 MG TAB 2 tabs daily for 3 days, 1 tab daily for 3 days, 1/2 tab daily for 2 days PREDNISONE 65398160722 No Longer Active Gab Padron MD Active ZOFRAN ODT 4 MG TBDP 1 po q6hr PRN Nausea ONDANSETRON 05879647214 Active Gab Padron MD Active IBUPROFEN 600 MG TAB 1 tablet by mouth every 6 hours for 7 days, then 1 tablet every 6 hours as needed. Take with food IBUPROFEN 87091189443 Active Rodrigo Sarah APRN Active BACTRIM DS 800-160 MG TAB 1 tab by mouth twice daily TRIMETHOPRIM-SULFAMETHOXAZOLE 59384675894 No Longer Active Gab Padron MD Active LEVOTHYROXINE SODIUM 75 MCG TABS Take 1 tab daily LEVOTHYROXINE SODIUM 89977296339 No Longer Active Mariana FLEMING Active SYNTHROID 88 MCG ORAL TABS Take one by mouth daily LEVOTHYROXINE SODIUM 18433413755 Active Tisha Lambert APRN Active CHERATUSSIN AC 100-10 MG/5ML SYRP 1 tsp by mouth every 4 hours as needed for cough GUAIFENESIN-CODEINE 61747985504 No Longer Active Gab Padron MD Active POLYTRIM 89513-5.1 UNIT/ML-% SOLN 1 gtt to affected eye q3h x 7 days POLYMYXIN B-TRIMETHOPRIM 27839970008 No Longer Active Gab Padron MD Active FLUTICASONE PROPIONATE 50 MCG/ACT SUSP 1 to 2 sprays each nostril daily 04/21 FLUTICASONE PROPIONATE 61862446402 No Longer Active Gab Padron MD Active TRILEPTAL 600 MG TABS Take one 1 tablet in Am and 1 tablet at night OXCARBAZEPINE 54243901966 Active Gab Padron MD Active CEFDINIR 300 MG CAPS 1 po BID x 10 days CEFDINIR 67117185697 No Longer Active Rodrigo Sarah APRN Active CEFTIN 500 MG TAB 1 twice a day CEFUROXIME AXETIL 65963183661 No Longer Active Gab Padron MD Active AZITHROMYCIN 250 MG TABS 2 po qd x 1 day, then 1 po qd x 4 days AZITHROMYCIN 52668869041 No Longer Active Rodrigo Sarah APRN Active OXYCODONE HCL 5 MG ORAL CAPS 1 TAB PO Q HS OXYCODONE HCL 36227583439 No Longer Active Rodrigo Sarah APRN Active NIASPAN 500 MG ORAL CR-TABS 1 pill nightly x 1 week, then 2 pills nightly x 1 week, then 3 pills nightly x 1 week, then 4 pills nightly NIACIN (ANTIHYPERLIPIDEMIC) 19177905199 No Longer Active Rodrigo Sarah APRN Active NIACIN 500 MG TABS 1 pill by mouth nightly x 1 week, then 2 pills x 1 week, then 3 pills x 1 week, then 4 pills nightly - take after evening meal, with applesauce or an apple NIACIN 43424526202 No Longer Active Yolande Lindsay MD PhD Active FUROSEMIDE 20 MG TAB 1 tablet by mouth daily FUROSEMIDE 72554275858 Active Gab Padron MD Active LISINOPRIL 20 MG ORAL TABS 1 tab by mouth daily LISINOPRIL 96130096550 Active Gab Padron MD Active FUROSEMIDE 20 MG TABS 1 pill by mouth daily, for edema FUROSEMIDE 09775504351 No Longer Active Yolande Lindsay MD PhD Active ATORVASTATIN CALCIUM 10 MG TABS 1 pill by mouth daily, for cholesterol 09/06 ATORVASTATIN CALCIUM 02056396732 Active Gab Padron MD Active CALCIUM 600+D PLUS MINERALS 600-400 MG-UNIT ORAL CHEW 1 tab by mouth daily CALCIUM CARBONATE-VIT D-MIN 45684344248 No Longer Active Yolande Lindsay MD PhD Active CYCLOBENZAPRINE HCL 10 MG TABS 1 tablet by mouth three times daily as needed for muscle spasm/pain CYCLOBENZAPRINE HCL 25681688071 Active Yolande Lindsay MD PhD Active ADULT ASPIRIN EC LOW STRENGTH 81 MG TBEC Take 1 tablet by mouth daily 2014 ASPIRIN 43587714939 No Longer Active Yolande Lindsay MD PhD Active ZOFRAN ODT 4 MG TBDP 1 pill dissolved by mouth every 4 hours if needed for nausea ONDANSETRON 86330217423 No Longer Active Yolande Lindsay MD PhD Active CEFTIN 500 MG TAB 1 twice a day CEFUROXIME AXETIL 23851452969 No Longer Active Yolande Lindsay MD PhD Active ALBUTEROL SULFATE 0.083 % NEBU SOLN one vial per nebulizer every 4-6 hours as needed ALBUTEROL SULFATE 11728575159 No Longer Active Alexis Ordaz MD Active DOXYCYCLINE HYCLATE 100 MG CAP 1 cap by mouth twice daily DOXYCYCLINE HYCLATE 45408943963 No Longer Active Yolande Lindsay MD PhD Active CYCLOBENZAPRINE HCL 10 MG TABS 1/2 - 1 tab by mouth three times daily if needed for spasms/pain CYCLOBENZAPRINE HCL 58625785090 No Longer Active Yolande Lindsay MD PhD Active AZITHROMYCIN 250 MG TABS 2 pills on day 1, then 1 pill daily x 4 days AZITHROMYCIN 30267178777 No Longer Active Yolande Lindsay MD PhD Active XOPENEX 1.25 MG/3ML NEBU 1 neb every 4 hours if needed for cough/congestion LEVALBUTEROL HCL 20174259376 No Longer Active Yolande Lindsay MD PhD Active DOXYCYCLINE HYCLATE 100 MG TAB 1 tab twice a day for 14 days 2013 DOXYCYCLINE HYCLATE 58114985257 No Longer Active Yolande Lindsay MD PhD Active PREVACID 30 MG CPDR Take 1 tablet by mouth daily-PRN LANSOPRAZOLE 74906530999 No Longer Active Yolande Lindsay MD PhD Active PA VITAMIN D-3 2000 UNIT CAPS 1 CAP PO DAILY CHOLECALCIFEROL 11159080108 No Longer Active Yolande Lindsay MD PhD Active CEFDINIR 300 MG CAPS by mouth twice a day CEFDINIR 64553991954 No Longer Active Gab Padron MD Active TOPAMAX 50 MG TABS 1 PO twice daily TOPIRAMATE 99197145271 Active Yolande Lindsay MD PhD Active AZITHROMYCIN 250 MG TABS 2 po qd x 1 day, then 1 po qd x 4 days AZITHROMYCIN 60431594772 No Longer Active Yolande Lindsay MD PhD Active DICLOFENAC SODIUM 75 MG TBEC 1 tablet by q 12 hours PRN headaches DICLOFENAC SODIUM 14819031404 No Longer Active Yolande Lindsay MD PhD Active FLONASE 50 MCG/ACT SUSP 1 spray each nostril am and hs FLUTICASONE PROPIONATE 63510789131 No Longer Active Todd Callaway MD Active ANUSOL-HC 25 MG SUPPOSITORY 1 rectally twice a day as needed for hemorrhoids HYDROCORTISONE JAYDEN (RECTAL) 43656806472 No Longer Active Yolande Lindsay MD PhD Active ANUSOL-HC 25 MG SUPPOSITORY 1 suppository rectally each evening as needed for anal fissure HYDROCORTISONE JAYDEN (RECTAL) 88738246601 No Longer Active LONNIE Iglesias Active VALIUM 5 MG TAB 1 po 30 minutes prior to your MRI DIAZEPAM 31233822025 No Longer Active LONNIE Iglesias Active METHOCARBAMOL 750 MG TABS 1 PO QID PRN METHOCARBAMOL 33949016245 No Longer Active Daphne Wetzel APRN Active NITROSTAT 0.4 MG SUBL as directed NITROGLYCERIN 87901944694 No Longer Active Jillina Frazell SENIOR APPLICATION SOFTWARE ENGINEER Active ROBAXIN-750 750 MG TABS 2 four times a day for 3 days as needed for muscle spasm, then 1 four times a day as needed METHOCARBAMOL 80880448565 No Longer Active Silvestrellnacho Sarah APRN Active HYDROCODONE-ACETAMINOPHEN 5-325 MG TABS 1 q 4-6 hrs prn HYDROCODONE-ACETAMINOPHEN 48813052031 No Longer Active Silvestrellnacho Sarah APRN Active VERAPAMIL HCL CR 180 MG CR-TABS TAKE 1 TAB DAILY VERAPAMIL HCL 67914872319 No Longer Active Yolande Lindsay MD PhD Active BACTRIM DS 800-160 MG TAB 1 tab by mouth twice daily TRIMETHOPRIM-SULFAMETHOXAZOLE 87556302540 No Longer Active Yolande Lindsay MD PhD Active NEXIUM 40 MG PACK 1 by mouth daily ESOMEPRAZOLE MAGNESIUM 93905620638 No Longer Active Des Hines MD Active EPIPEN 2-CHARLETTE 0.3 MG/0.3ML OMARI as need for allergic reaction EPINEPHRINE 06076525526 Active Yolande Lindsay MD PhD Active NEXIUM 40 MG CPDR 1 PO Q D DAY ESOMEPRAZOLE MAGNESIUM 86537356522 No Longer Active Sadia Perry RN Active NEXIUM 40 MG PACK 1 by mouth daily NEXIUM 40 MG PACK ESOMEPRAZOLE MAGNESIUM Inactive VERAPAMIL HCL CR 180 MG CR-TABS TAKE 1 TAB DAILY VERAPAMIL HCL CR 180 MG CR-TABS VERAPAMIL HCL Inactive HYDROCODONE-ACETAMINOPHEN 5-325 MG TABS 1 q 4-6 hrs prn HYDROCODONE-ACETAMINOPHEN 5-325 MG TABS 089712 HYDROCODONE-ACETAMINOPHEN Inactive ROBAXIN-750 750 MG TABS 2 four times a day for 3 days as needed for muscle spasm, then 1 four times a day as needed ROBAXIN-750 750 MG TABS 921656 METHOCARBAMOL Inactive NITROSTAT 0.4 MG SUBL as directed NITROSTAT 0.4 MG SUBL 166700 NITROGLYCERIN Inactive METHOCARBAMOL 750 MG TABS 1 PO QID PRN METHOCARBAMOL 750 MG TABS 535249 METHOCARBAMOL Inactive VALIUM 5 MG TAB 1 po 30 minutes prior to your MRI VALIUM 5 MG TAB 051153 DIAZEPAM Inactive ANUSOL-HC 25 MG SUPPOSITORY 1 suppository rectally each evening as needed for anal fissure ANUSOL-HC 25 MG SUPPOSITORY 3875711 HYDROCORTISONE JAYDEN (RECTAL) Inactive ANUSOL-HC 25 MG SUPPOSITORY 1 rectally twice a day as needed for hemorrhoids ANUSOL-HC 25 MG SUPPOSITORY 3808523 HYDROCORTISONE JAYDEN (RECTAL) Inactive FLONASE 50 MCG/ACT SUSP 1 spray each nostril am and hs FLONASE 50 MCG/ACT SUSP 5322921 FLUTICASONE PROPIONATE Inactive DICLOFENAC SODIUM 75 MG TBEC 1 tablet by q 12 hours PRN headaches DICLOFENAC SODIUM 75 MG TBEC 299339 DICLOFENAC SODIUM Inactive PA VITAMIN D-3 2000 UNIT CAPS 1 CAP PO DAILY PA VITAMIN D-3 2000 UNIT CAPS CHOLECALCIFEROL Inactive PREVACID 30 MG CPDR Take 1 tablet by mouth daily-PRN PREVACID 30 MG CPDR 156579 LANSOPRAZOLE Inactive DOXYCYCLINE HYCLATE 100 MG TAB 1 tab twice a day for 14 days 2013 DOXYCYCLINE HYCLATE 100 MG TAB 0396780 DOXYCYCLINE HYCLATE Inactive XOPENEX 1.25 MG/3ML NEBU 1 neb every 4 hours if needed for cough/congestion XOPENEX 1.25 MG/3ML NEBU 209636 LEVALBUTEROL HCL Inactive CYCLOBENZAPRINE HCL 10 MG TABS 1/2 - 1 tab by mouth three times daily if needed for spasms/pain CYCLOBENZAPRINE HCL 10 MG TABS 601772 CYCLOBENZAPRINE HCL Inactive ALBUTEROL SULFATE 0.083 % NEBU SOLN one vial per nebulizer every 4-6 hours as needed ALBUTEROL SULFATE 0.083 % NEBU SOLN 007878 ALBUTEROL SULFATE Inactive CEFTIN 500 MG TAB 1 twice a day CEFTIN 500 MG TAB 590320 CEFUROXIME AXETIL Inactive ZOFRAN ODT 4 MG TBDP 1 pill dissolved by mouth every 4 hours if needed for nausea ZOFRAN ODT 4 MG TBDP 835849 ONDANSETRON Inactive ADULT ASPIRIN EC LOW STRENGTH 81 MG TBEC Take 1 tablet by mouth daily 2014 ADULT ASPIRIN EC LOW STRENGTH 81 MG TBEC 531247 ASPIRIN Inactive CALCIUM 600+D PLUS MINERALS 600-400 [...] or an apple NIACIN 500 MG TABS 113303 NIACIN Inactive NIASPAN 500 MG ORAL CR-TABS 1 pill nightly x 1 week, then 2 pills nightly x 1 week, then 3 pills nightly x 1 week, then 4 pills nightly NIASPAN 500 MG ORAL CR-TABS NIACIN (ANTIHYPERLIPIDEMIC) Inactive OXYCODONE HCL 5 MG ORAL CAPS 1 TAB PO Q HS OXYCODONE HCL 5 MG ORAL CAPS 6123174 OXYCODONE HCL Inactive FLUTICASONE PROPIONATE 50 MCG/ACT SUSP 1 to 2 sprays each nostril daily 04/21 FLUTICASONE PROPIONATE 50 MCG/ACT SUSP 8590392 FLUTICASONE PROPIONATE Inactive POLYTRIM 04267-9.1 UNIT/ML-% SOLN 1 gtt to affected eye q3h x 7 days POLYTRIM 41999-1.1 UNIT/ML-% SOLN 581656 POLYMYXIN B- TRIMETHOPRIM Inactive CHERATUSSIN AC 100-10 MG/5ML SYRP 1 tsp by mouth every 4 hours as needed for cough CHERATUSSIN AC 100-10 MG/5ML SYRP 284795 GUAIFENESIN-CODEINE Inactive LEVOTHYROXINE SODIUM 75 MCG TABS Take 1 tab daily LEVOTHYROXINE SODIUM 75 MCG TABS 984434 LEVOTHYROXINE SODIUM Inactive CLARITIN 10 MG TAB 1 tablet by mouth daily as needed for allergies CLARITIN 10 MG TAB 014212 LORATADINE Inactive FISH OIL 1000 MG CAPS 3 pills daily FISH OIL 1000 MG CAPS OMEGA-3 FATTY ACIDS Inactive ONDANSETRON 4 MG TBDP 1 q4h PRN nausea ONDANSETRON 4 MG TBDP 273207 ONDANSETRON Inactive ADVAIR DISKUS 250-50 MCG/DOSE AEPB 1 puff BID ADVAIR DISKUS 250-50 MCG/DOSE AEPB FLUTICASONE-SALMETEROL Inactive TRAMADOL HCL 50 MG TABS 1 tab po every 6 hrs prn pain TRAMADOL HCL 50 MG TABS 006087 TRAMADOL HCL Inactive TRIAMCINOLONE ACETONIDE 0.1 % CREA apply bid sparingly to rash TRIAMCINOLONE ACETONIDE 0.1 % CREA 8666187 TRIAMCINOLONE ACETONIDE Inactive BACTRIM DS 800-160 MG TAB 1 tab by mouth twice daily BACTRIM DS 800-160 MG TAB 373036 TRIMETHOPRIM-SULFAMETHOXAZOLE Inactive AZITHROMYCIN 250 MG TABS 2 po qd x 1 day, then 1 po qd x 4 days AZITHROMYCIN 250 MG TABS 0013290 AZITHROMYCIN Inactive CEFDINIR 300 MG CAPS by mouth twice a day CEFDINIR 300 MG CAPS 409575 CEFDINIR Inactive AZITHROMYCIN 250 MG TABS 2 pills on day 1, then 1 pill daily x 4 days AZITHROMYCIN 250 MG TABS 3679587 AZITHROMYCIN Inactive DOXYCYCLINE HYCLATE 100 MG CAP 1 cap by mouth twice daily DOXYCYCLINE HYCLATE 100 MG CAP 6618753 DOXYCYCLINE HYCLATE Inactive FUROSEMIDE 20 MG TABS 1 pill by mouth daily, for edema FUROSEMIDE 20 MG TABS 034650 FUROSEMIDE Inactive AZITHROMYCIN 250 MG TABS 2 po qd x 1 day, then 1 po qd x 4 days AZITHROMYCIN 250 MG TABS 2380677 AZITHROMYCIN Inactive CEFTIN 500 MG TAB 1 twice a day CEFTIN 500 MG TAB 151137 CEFUROXIME AXETIL Inactive CEFDINIR 300 MG CAPS 1 po BID x 10 days CEFDINIR 300 MG CAPS 958605 CEFDINIR Inactive BACTRIM DS 800-160 MG TAB 1 tab by mouth twice daily BACTRIM DS 800-160 MG TAB 470895 TRIMETHOPRIM-SULFAMETHOXAZOLE Inactive PREDNISONE 20 MG TAB 2 tabs daily for 3 days, 1 tab daily for 3 days, 1/2 tab daily for 2 days PREDNISONE 20 MG TAB 184813 PREDNISONE Inactive PREDNISONE 20 MG TAB take 3 tabs daily for 3 days, 2 tabs daily for 3 days, 1 tab daily for 3 days, 1/2 tab daily for 3 days PREDNISONE 20 MG TAB 604291 PREDNISONE Inactive BACTRIM DS 800-160 MG TAB 1 tab by mouth twice daily BACTRIM DS 800-160 MG TAB 19820606 TRIMETHOPRIM-SULFAMETHOXAZOLE Inactive Immunizations Vaccine Administration Date Value Standard Description Seasonal influenza vaccine, injectable, containing preservative, for > 3 years old (Afluria, FluLaval, Fluzone, Fluvirin, Fluarix, Agriflu(>=18 yo)) Fluzone (>3 yrs.) [ESU809] Influenza, seasonal, injectable influenza immunization (Flu Vax) has been administered Influenza - Unspecified Formulation [CVX88] influenza virus vaccine, unspecified formulation Seasonal influenza vaccine, injectable, containing preservative, for > 3 years old (Afluria, FluLaval, Fluzone, Fluvirin, Fluarix, Agriflu(>=18 yo)) Fluzone (>3 yrs.) [MSL219] Influenza, seasonal, injectable pneumococcal immunization administered Pneumovax 23 [CVX33] pneumococcal polysaccharide vaccine, 23 valent dT (Diphtheria and Tetanus) booster given given Td(adult) unspecified formulation Boostrix (Tetanus toxoid, reduced diphtheria toxoid and acellular pertussis vaccine, adsorbed), booster Boostrix [XSA781] tetanus toxoid, reduced diphtheria toxoid, and acellular [...] Measured blood pressure, diastolic 74 mm[Hg] BP weldno blood pressure, systolic 149 mm[Hg] BP sys [...] PANEL - Chemistry cholesterol, serum 166 mg/dL [phone]/12/06 triglyceride, serum, fasting 86 mg/dL 30-200 HDL [...] negative Encounters Code Encounter Date Provider Facility CPT-56972 Level 3 Est. Patient 14:50:29 CDT Gab Padron MD [facility] CPT-01429 Level 3 Est. Patient 14:46:09 CDT Tisha Lambert APRN [facility] CPT-97853 Level 4 New Patient 16:13:15 CDT Todd Callaway MD [facility] CPT-28557 Level 4 Est. Patient 13:18:33 CDT Gab Padron MD [facility] CPT-34307 Level 3 Est. Patient 15:20:50 CDT Jared Og MD [facility] CPT-85559 Level 3 Est. Patient 17:43:55 MEDICAL SUPPLY TECHNICIAN Gab Padron MD [facility] CPT-43477 Level 3 Est. Patient 17:07:49 MEDICAL SUPPLY TECHNICIAN Jared Og MD [facility] CPT-50962 Level 4 Est. Patient 19:55:18 MEDICAL SUPPLY TECHNICIAN Jared Og MD [facility] CPT-39917 Level 3 Est. Patient 20:13:34 MEDICAL SUPPLY TECHNICIAN Jared Og MD [facility] CPT-74227 Level 4 Est. Patient 16:31:27 CDT Gab Padron MD [facility] CPT-73307 Level 2 Est. Patient 12:23:38 CDT Jared Og MD [facility] CPT-41724 Level 3 Est. Patient 11:01:51 CDT Gab Padron MD [facility] CPT-11070 Level 3 Est. Patient 15:27:02 CDT Jared Og MD [facility] CPT-55038 Level 4 Est. Patient 09:25:27 CDT Gab Padron MD [facility]-78404 Level 3 Est. Patient 10:29:41 [facility] Patient 17:51:05 CDT Gab Padron MD [facility]-51196 Level 3 Est. Patient 14:18:08 CDT Gab Padron MD [facility]-01941 Level 4 Est. Patient 10:18:54 CDT Gab Padron MD [facility]-80287 Level 3 Est. Patient 11:30:07 CDT Rodrigo Sarah [facility]-61044 Level 4 Est. Patient 21:02:30 MEDICAL SUPPLY TECHNICIAN Gab Padron MD [facility]-54709 Level 3 Est. Patient 11:02:19 MEDICAL SUPPLY TECHNICIAN Gab Padron MD [facility]-81288 Level 4 Est. Patient 22:24:31 MEDICAL SUPPLY TECHNICIAN Gab Padron MD [facility]-08334 Level 3 Est. Patient 18:33:46 MEDICAL SUPPLY TECHNICIAN Gab Padron MD [facility]-32674 Level 3 Est. Patient 16:19:11 CDT Yolande Lindsay MD [facility]-27389 Level 3 Est. Patient 18:59:14 CDT Yolande Lindsay MD [facility]-28809 Level 4 Est. Patient 21:29:26 CDT Yolande Lindsay MD [facility]-19259 Level 3 Est. Patient 07:37:45 CDT Yolande Lindsay MD [facility]-46621 Level 3 Est. Patient 17:03:46 CDT Yolande Lindsay MD [facility]-80375 Level 4 Est. Patient 20:02:13 MEDICAL SUPPLY TECHNICIAN Yolande Lindsay MD [facility] CPT-19119 Level 3 Est. Patient 16:02:07 MEDICAL SUPPLY TECHNICIAN Alexis Ordaz MD [facility] CPT-30716 Level 3 Est. Patient 12:41:24 MEDICAL SUPPLY TECHNICIAN Yolande Lindsay MD [facility] CPT-16793 Level 3 Est. Patient 15:41:20 MEDICAL SUPPLY TECHNICIAN Yolande Lindsay MD [facility] CPT-42926 Level 3 Est. Patient 13:20:02 MEDICAL SUPPLY TECHNICIAN Yolande Lindsay MD [facility] CPT-54887 Level 3 Est. Patient 15:00:38 CDT Jared Og MD [facility]-27706 Level 3 Est. Patient 10:22:32 CDT Yolande Lindsay MD [facility] CPT-94618 Level 3 Est. Patient 17:12:58 CDT Yolande Lindsay MD [facility] CPT-59853 Level 4 Est. Patient 13:30:58 CDT Yolande Lindsay MD [facility] CPT-26147 Level 4 New Patient 09:02:42 CDT Jared Og MD [facility] CPT-03102 Level 3 Est. Patient 08:19:07 CDT Yolande Lindsay MD [facility] CPT-02561 Level 3 Est. Patient 12:00:13 MEDICAL SUPPLY TECHNICIAN Gba Padron MD [facility] CPT-32584 Level 3 Est. Patient 16:15:23 MEDICAL SUPPLY TECHNICIAN Yolande Lindsay MD [facility] CPT-53601 Level 2 Est. Patient 19:47:15 CDT Yolande Lindsay MD [facility] CPT-85368 Level 3 Est. Patient 21:38:31 CDT Yolande Lindsay MD [facility]-30872 Level 3 Est. Patient 10:25:12 CDT Adiel PERAZA [facility]-21826 Level 4 Est. Patient 10:51:58 CDT Yolande Lindsay MD [facility]-95420 Level 3 Est. Patient 14:04:55 MEDICAL SUPPLY TECHNICIAN Rodrigo Sarah [facility]-10932 Level 3 Est. Patient 10:46:35 MEDICAL SUPPLY TECHNICIAN Rodrigo Sarah [facility] CPT-85427 Level 3 Est. Patient 14:24:37 MEDICAL SUPPLY TECHNICIAN Yolande Lindsay MD [facility]-56704 Level 3 Est. Patient 17:41:58 MEDICAL SUPPLY TECHNICIAN Yolande Lindsay MD [facility]-59241 Level 2 Est. Patient 22:01:41 MEDICAL SUPPLY TECHNICIAN Rodrigo Sarah [facility]-51162 Level 2 Est. Patient 22:01:11 MEDICAL SUPPLY TECHNICIAN Rodrigo Sarah [facility]-55761 Level 3 Est. Patient 10:12:29 MEDICAL SUPPLY TECHNICIAN Rodrigo Sarah [facility] CPT-03540 Level 3 Est. Patient 11:05:44 CDT Alexis Ordaz MD [facility]-86733 Level 3 Est. Patient 14:57:20 CDT Yolande Lindsay MD [facility]-64084 Level 3 Est. Patient 14:40:57 CDT Yolande Lindsay MD [facility]-65222 Level 3 Est. Patient 20:55:40 CDT Yolande Lindsay MD [facility]-28667 Level 3 Est. Patient 12:42:38 MEDICAL SUPPLY TECHNICIAN Yolande Lindsay MD [facility]64936 Level 3 Est. Patient 11:54:49 MEDICAL SUPPLY TECHNICIAN Des Hines MD [facility] CPT-03438 Level 3 Est. Patient 17:06:38 CDT Dewayne PERAZA [facility] Procedures Code Procedure Name Date Entry Date Standard Description CPT-J2930 Solu Medrol 125 mg (Methyl Prednisolone Sodium Succinate) 13:19:02 CDT CPT-20082 Abx/Therapy Injection 13:19:02 CDT CPT-J2930 Solu Medrol 125 mg (Methyl Prednisolone Sodium Succinate) 13:05:03 CDT CPT-17508 Hip, complete, 2-3 views - XRAY USE ONLY 17:19:04 MEDICAL SUPPLY TECHNICIAN CPT-13942 Venipuncture Draw Fee 08:37:59 MEDICAL SUPPLY TECHNICIAN CPT-06624 Liver Profile - LAB USE ONLY 08:37:59 MEDICAL SUPPLY TECHNICIAN CPT-45003 Lipid - LAB USE ONLY 08:37:58 MEDICAL SUPPLY TECHNICIAN CPT-03427 First Vx - Ix admin via ID IM or jet injects without counseling by physician 11:52:31 CDT CPT-02840 Fluzone Preservative Free Intramuscular Suspension 11:52 :31 CDT CPT-35132 Foot, left, comp min 3V - XRAY USE ONLY 09:24:54 CDT CPT-27343 Abd single AP View - XRAY USE ONLY 11:16:17 CDT CPT-72316 T spine AP/ Lat - XRAY USE ONLY 09:34:21 CDT CPT-66379 Chest 2V Frontal and Lat - XRAY USE ONLY 10:48:51 CDT CPT-90025 LS spine comp w obliq 13:28:00 MEDICAL SUPPLY TECHNICIAN CPT-J1040 Depo Medrol 80 mg (Methyl Prednisolone Acetate) 10:51: 28 MEDICAL SUPPLY TECHNICIAN CPT-J1100 Decadron 8mg (Dexamethasone) 10:51:28 MEDICAL SUPPLY TECHNICIAN CPT-92516 Abx/Therapy Injection 10:51:28 MEDICAL SUPPLY TECHNICIAN CPT-J1100 Decadron 8mg (Dexamethasone) 21:02:30 MEDICAL SUPPLY TECHNICIAN CPT-J1040 Depo Medrol 80 mg (Methyl Prednisolone Acetate) 21:02: 30 MEDICAL SUPPLY TECHNICIAN [id number] Event Monitor - MC Transmission 09:12:32 CDT 08/06 [id number] Event Monitor - MC review and interp 09:12:32 CDT [id number] Event Monitor - MC recording 09:12:32 CDT CPT-61619 EKG Trac and Interp 16:50:22 CDT CPT-J1030 Depo Medrol 40 mg (Methyl Prednisolone Acetate) 17:05: 54 CDT CPT-J1100 Decadron 4mg (Dexamethasone) 17:05:54 CDT CPT-51846 Abx/Therapy Injection 17:05:54 CDT CPT-J1100 Decadron 4mg (Dexamethasone) 16:55:28 CDT CPT-J1030 Depo Medrol 40 mg (Methyl Prednisolone Acetate) 16:55: 28 CDT CPT-85809 Ankle Complete - Min 3V 15:58:50 CDT CPT-09770 Knee 3V 15:58:50 CDT CPT-48630 Hip comp min 2V 15:58:50 CDT CPT-J2270 Morphine Sulfate 10 mg 14:25:44 MEDICAL SUPPLY TECHNICIAN CPT-J2550 Phenergan 12.5 mg (Promethazine) 14:25:44 MEDICAL SUPPLY TECHNICIAN CPT-83090 Abx/Therapy Injection 14:25:44 MEDICAL SUPPLY TECHNICIAN CPT-J2550 Phenergan 12.5 mg (Promethazine) 14:08:03 MEDICAL SUPPLY TECHNICIAN CPT-J2270 Morphine Sulfate 10 mg 14:08:03 MEDICAL SUPPLY TECHNICIAN CPT-35906 Bladder Scan 15:00:38 CDT CPT-TCMM Transitional Care Mgmt-Moderate 09:52:22 CDT CPT-J1030 Depo Medrol 40 mg (Methyl Prednisolone Acetate) 10:55: 18 CDT CPT-J1100 Decadron 4mg (Dexamethasone) 10:55:18 CDT CPT-37193 Abx/Therapy Injection 10:55:18 CDT CPT-J1030 Depo Medrol 40 mg (Methyl Prednisolone Acetate) 10:22: 32 CDT CPT-J1100 Decadron 4mg (Dexamethasone) 10:22:32 CDT CPT-30295 Postop F/U Visit 14:37:13 CDT CPT-94172 Ankle Complete - Min 3V 17:11:58 CDT CPT-73325 Foot comp min 3V 17:11:58 CDT CPT-67682 Bladder Scan 09:56:58 CDT CPT-28559 Postop F/U Visit 09:56:58 CDT CPT-22015 Cystoscopy 09:02:42 CDT CPT-61111 Bladder Scan 09:02:42 CDT CPT-53918 Abd single AP View 16:00:35 CDT CPT-34274 Administration single or combination vaccine inc oral 10 :15:43 CDT CPT-35845 Influenza split virus > age 3 10:15:43 CDT CPT-89721 Nail Avulsion 09:24:57 CDT CPT-OV Office Visit 11:15:41 CDT CPT-67433 Abx/Therapy Injection 10:51:30 CDT CPT-J3301 Kenalog 40 mg (Triamcinolone Acetonide) 10:25:12 CDT CPT-J1100 Decadron 4mg (Dexamethasone) 10:25:12 CDT CPT-60342 Anoscopy diagnostic 10:36:12 CDT CPT-OV Office Visit 15:34:31 CDT CPT-35613 Abx/Therapy Injection 08:21:15 MEDICAL SUPPLY TECHNICIAN CPT-J1885 Toradol 60 mg (Ketorolac) 10:46:35 MEDICAL SUPPLY TECHNICIAN CPT-OV Office Visit 19:51:16 MEDICAL SUPPLY TECHNICIAN CPT-95906 Spec Collection and Handling Fee 14:34:18 MEDICAL SUPPLY TECHNICIAN CPT-PV Prev. Care Visit 14:19:18 MEDICAL SUPPLY TECHNICIAN CPT-61718 Postop F/U Visit 14:47:51 MEDICAL SUPPLY TECHNICIAN CPT-58448 Postop F/U Visit 15:15:14 MEDICAL SUPPLY TECHNICIAN CPT-04855 Postop F/U Visit 14:41:43 CDT CPT-51874 Postop F/U Visit 15:47:46 CDT CPT-OV Office Visit 15:27:23 CDT CPT-OV Office Visit 17:20:34 CDT CPT-05455 Abx/Therapy Injection 15:05:57 CDT CPT-J1100 Decadron 8mg (Dexamethasone) 14:44:57 CDT CPT-J1040 Depo Medrol 80 mg (Methyl Prednisolone Acetate) 14:44: 57 CDT CPT-JTINJ Joint Injection 10:17:37 CDT CPT-16536 Administration 2+ single or combination vaccines inc oral 13:01:46 MEDICAL SUPPLY TECHNICIAN CPT-92749 Administration single or combination vaccine inc oral 13 :01:46 MEDICAL SUPPLY TECHNICIAN CPT-50475 Pneumovax 13:01:46 MEDICAL SUPPLY TECHNICIAN CPT-59039 Influenza split virus > age 3 13:01:46 MEDICAL SUPPLY TECHNICIAN CPT-62258 Administration single or combination vaccine inc oral 08 :56:49 CDT CPT-78097 Tdap 08:56:49 CDT
--- OUTSIDE RECORDS SUMMARY | 2017-03-21 22:39 | XMS REPORT | Clinical Summary ---
Author Author Admin, MARGRET Organization [employer] Address Unknown Phone Unavailable Allergies, Adverse Reactions, Alerts Allergy Name Reaction Description Start Date Severity Status Provider VALENTIN Critical Active Rodrigo Montemayorl GOLD LAYER CHLORHEXIDINE GLUCONATE tongue and gums swollen Critical Active Hoa Kabaford RMA NORFLEX Rash Critical Active Rowenaina Farshadzell GOLD LAYER TRAZODONE HCL sees things Critical Active Dewayne [...] infarction, hx of 412 Active Hoa Otto [facility] Old myocardial infarction Pelvic pain 789.09 Active Yolande Lindsay MD PhD Abdominal pain, other specified site; multiple sites Edema 782.3 Active Yolande Lindsay MD PhD Edema Rash 782.1 Active Yolande Lindsay MD PhD Rash and other nonspecific skin eruption Back pain, lumbar 724.2 Active Gab Padron MD Lumbago Cough 786.2 Active Jillina Tyrel GOLD LAYER Cough 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 Jillina Frazellilian ZAPATAN 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 Anemia 285.9 Active Gab Padron MD Anemia, unspecified Conjunctivitis 372.30 Active Jillnacho Sarah APRN Conjunctivitis, unspecified Sinusitis 473.9 Active Jillina Frazell GOLD LAYER Unspecified sinusitis (chronic) Nonspecific syndrome suggestive of viral illness 079.99 Active Jillina Siml GOLD LAYER Unspecified viral infection Laryngitis 464.00 Active Jillina Farshadzell GOLD LAYER Acute laryngitis without mention of obstruction Abdominal [...] Abdominal pain, generalized 789.07 Active Silvestrellina Siml GOLD LAYER Abdominal pain, generalized Back pain, thoracic region, left 724.1 Active Jillina Farshadzell GOLD LAYER Pain in thoracic spine Abdominal pain, left lower quadrant 789.04 Active Gab Padron MD Abdominal pain, left lower quadrant Slowing of urinary stream 788.62 Active Gab Padron MD Slowing of urinary stream Interstitial cystitis 595.1 Active Gab Padron MD Chronic interstitial cystitis Flank Pain Active Jared Og MD Abdominal pain, unspecified site Foot pain, left 729.5 Active Gab Pdaron MD Pain in limb Heel spur 726.73 [...] 1/2 tab daily for 2 days PREDNISONE 35886856765 Active Gab Padron MD Active ZOFRAN ODT 4 MG TBDP 1 po q6hr PRN Nausea ONDANSETRON 25405576406 Active Rodrigo Sarah APRN Active IBUPROFEN 600 MG TAB 1 tablet by mouth every 6 hours for 7 days, then 1 tablet every 6 hours as needed. Take with food IBUPROFEN 66851656852 Active Jillina Frazell DAIN Active BACTRIM DS 800-160 MG TAB 1 tab by mouth twice daily TRIMETHOPRIM-SULFAMETHOXAZOLE 68201589873 No Longer Active Gab Padron MD Active ADVAIR DISKUS 250-50 MCG/DOSE AEPB 1 puff BID FLUTICASONE- SALMETEROL 85496691451 Active Rodrigo Sarah APRN Active LEVOTHYROXINE SODIUM 75 MCG TABS Take 1 tab daily LEVOTHYROXINE SODIUM 25773457774 No Longer Active Mariana HICKEYA Active SYNTHROID 88 MCG ORAL TABS Take one by mouth daily LEVOTHYROXINE SODIUM 48831611496 Active Mariana HICKEYA Active CHERATUSSIN AC 100-10 MG/5ML SYRP 1 tsp by mouth every 4 hours as needed for cough GUAIFENESIN-CODEINE 37051050683 No Longer Active Gab Padron MD Active POLYTRIM 48190-1.1 UNIT/ML-% SOLN 1 gtt to affected eye q3h x 7 days POLYMYXIN B-TRIMETHOPRIM 42977392595 No Longer Active Gab Padron MD Active FLUTICASONE PROPIONATE 50 MCG/ACT SUSP 1 to 2 sprays each nostril daily 04/21 FLUTICASONE PROPIONATE 22242067770 No Longer Active Gab Padron MD Active TRILEPTAL 600 MG TABS Take one 1 tablet in Am and 1 tablet at night OXCARBAZEPINE 11579636577 Active Gab Padron MD Active CEFDINIR 300 MG CAPS 1 po BID x 10 days CEFDINIR 93292165429 No Longer Active Rodrigo Sarah APRN Active CEFTIN 500 MG TAB 1 twice a day CEFUROXIME AXETIL 89969870767 No Longer Active Gab Padron MD Active AZITHROMYCIN 250 MG TABS 2 po qd x 1 day, then 1 po qd x 4 days AZITHROMYCIN 12366274682 No Longer Active Silvestrellnacho Sarah APRN Active CLARITIN 10 MG TAB 1 tablet by mouth daily as needed for allergies LORATADINE 89816735390 Active Silvestrellnacho Sarah APRN Active OXYCODONE HCL 5 MG ORAL CAPS 1 TAB PO Q HS OXYCODONE HCL 84718042577 No Longer Active Rodrigo Sarah APRN Active NIASPAN 500 MG ORAL CR-TABS 1 pill nightly x 1 week, then 2 pills nightly x 1 week, then 3 pills nightly x 1 week, then 4 pills nightly NIACIN (ANTIHYPERLIPIDEMIC) 03293732545 No Longer Active Silvestrebernabe Yenhossein ZAPATAN Active NIACIN 500 MG TABS 1 pill by mouth nightly x 1 week, then 2 pills x 1 week, then 3 pills x 1 week, then 4 pills nightly - take after evening meal, with applesauce or an apple NIACIN 29425745929 No Longer Active Yolande Lindsay MD PhD Active FISH OIL 1000 MG CAPS 3 pills daily OMEGA-3 FATTY ACIDS 27424539512 Active Yolande Lindsay MD PhD Active TRIAMCINOLONE ACETONIDE 0.1 % CREA apply bid sparingly to rash TRIAMCINOLONE ACETONIDE 68377139535 Active Yolande Lindsay MD PhD Active FUROSEMIDE 20 MG TAB 1 tablet by mouth daily FUROSEMIDE 78686654154 Active Tisha Lambert APRN Active LISINOPRIL 20 MG ORAL TABS 1 tab by mouth daily LISINOPRIL 46152751600 Active Gab Padron MD Active FUROSEMIDE 20 MG TABS 1 pill by mouth daily, for edema FUROSEMIDE 37125938698 No Longer Active Yolande Lindsay MD PhD Active ATORVASTATIN CALCIUM 10 MG TABS 1 pill by mouth daily, for cholesterol 09/06 ATORVASTATIN CALCIUM 61806282936 Active Gab Padron MD Active CALCIUM 600+D PLUS MINERALS 600-400 MG-UNIT ORAL CHEW 1 tab by mouth daily CALCIUM CARBONATE-VIT D-MIN 57330892581 No Longer Active Yolande Lindsay MD PhD Active CYCLOBENZAPRINE HCL 10 MG TABS 1 tablet by mouth three times daily as needed for muscle spasm/pain CYCLOBENZAPRINE HCL 17977888210 Active Yolande Lindsay MD PhD Active ONDANSETRON 4 MG TBDP 1 q4h PRN nausea ONDANSETRON 34669695920 Active Yolande Lindsay MD PhD Active ADULT ASPIRIN EC LOW STRENGTH 81 MG TBEC Take 1 tablet by mouth daily 2014 ASPIRIN 63307519350 No Longer Active Yolande Lindsay MD PhD Active ZOFRAN ODT 4 MG TBDP 1 pill dissolved by mouth every 4 hours if needed for nausea ONDANSETRON 37747171599 No Longer Active Yolande Lindsay MD PhD Active CEFTIN 500 MG TAB 1 twice a day CEFUROXIME AXETIL 08815583412 No Longer Active Yolande Lindsay MD PhD Active ALBUTEROL SULFATE 0.083 % NEBU SOLN one vial per nebulizer every 4-6 hours as needed ALBUTEROL SULFATE 48367157522 No Longer Active Alexis Ordaz MD Active DOXYCYCLINE HYCLATE 100 MG CAP 1 cap by mouth twice daily DOXYCYCLINE HYCLATE 18082896087 No Longer Active Yolande Lindsay MD PhD Active CYCLOBENZAPRINE HCL 10 MG TABS 1/2 - 1 tab by mouth three times daily if needed for spasms/pain CYCLOBENZAPRINE HCL 46015278097 No Longer Active Yolande Lindsay MD PhD Active AZITHROMYCIN 250 MG TABS 2 pills on day 1, then 1 pill daily x 4 days AZITHROMYCIN 92041874254 No Longer Active Yolande Lindsay MD PhD Active XOPENEX 1.25 MG/3ML NEBU 1 neb every 4 hours if needed for cough/congestion LEVALBUTEROL HCL 14359517501 No Longer Active Yolande Lindsay MD PhD Active DOXYCYCLINE HYCLATE 100 MG TAB 1 tab twice a day for 14 days 2013 DOXYCYCLINE HYCLATE 42631081646 No Longer Active Yolande Lindsay MD PhD Active PREVACID 30 MG CPDR Take 1 tablet by mouth daily-PRN LANSOPRAZOLE 65272715446 No Longer Active Yolande Lindsay MD PhD Active PA VITAMIN D-3 2000 UNIT CAPS 1 CAP PO DAILY CHOLECALCIFEROL 83892540497 No Longer Active Yolande Lindsay MD PhD Active CEFDINIR 300 MG CAPS by mouth twice a day CEFDINIR 69907108230 No Longer Active Gab Padron MD Active TOPAMAX 50 MG TABS 1 PO twice daily TOPIRAMATE 96489772187 Active Yolande Lindsay MD PhD Active AZITHROMYCIN 250 MG TABS 2 po qd x 1 day, then 1 po qd x 4 days AZITHROMYCIN 50702156273 No Longer Active Yolande Lindsay MD PhD Active DICLOFENAC SODIUM 75 MG TBEC 1 tablet by q 12 hours PRN headaches DICLOFENAC SODIUM 78518650683 No Longer Active Yolande Lindsay MD PhD Active FLONASE 50 MCG/ACT SUSP 1 spray each nostril am and hs FLUTICASONE PROPIONATE 39402605604 No Longer Active Todd Callaway MD Active ANUSOL-HC 25 MG SUPPOSITORY 1 rectally twice a day as needed for hemorrhoids HYDROCORTISONE JAYDEN (RECTAL) 15518133878 No Longer Active Yolande Lindsay MD PhD Active ANUSOL-HC 25 MG SUPPOSITORY 1 suppository rectally each evening as needed for anal fissure HYDROCORTISONE JAYDEN (RECTAL) 93954894250 No Longer Active LONNIE Iglesias Active VALIUM 5 MG TAB 1 po 30 minutes prior to your MRI DIAZEPAM 96118810466 No Longer Active LONNIE Iglesias Active METHOCARBAMOL 750 MG TABS 1 PO QID PRN METHOCARBAMOL 24836751832 No Longer Active Daphne Wetzel APRN Active NITROSTAT 0.4 MG SUBL as directed NITROGLYCERIN 40736707421 No Longer Active Rodrigo Sarah APRN Active ROBAXIN-750 750 MG TABS 2 four times a day for 3 days as needed for muscle spasm, then 1 four times a day as needed METHOCARBAMOL 83071512470 No Longer Active Rodrigo Sarah APRN Active HYDROCODONE-ACETAMINOPHEN 5-325 MG TABS 1 q 4-6 hrs prn HYDROCODONE-ACETAMINOPHEN 26344811075 No Longer Active Rodrigo Sarah GOLD LAYER Active VERAPAMIL HCL CR 180 MG CR-TABS TAKE 1 TAB DAILY VERAPAMIL HCL 54198420958 No Longer Active Yolande Lindsay MD PhD Active BACTRIM DS 800-160 MG TAB 1 tab by mouth twice daily TRIMETHOPRIM-SULFAMETHOXAZOLE 44466423702 No Longer Active Yolande Lindsay MD PhD Active NEXIUM 40 MG PACK 1 by mouth daily ESOMEPRAZOLE MAGNESIUM 38738660705 No Longer Active Des Hines MD Active EPIPEN 2-CHARLETTE 0.3 MG/0.3ML OMARI as need for allergic reaction EPINEPHRINE 92793124398 Active Yolande Lindsay MD PhD Active NEXIUM 40 MG CPDR 1 PO Q D DAY ESOMEPRAZOLE MAGNESIUM 81708177195 No Longer Active Sadia Perry RN Active NEXIUM 40 MG PACK 1 by mouth daily NEXIUM 40 MG PACK ESOMEPRAZOLE MAGNESIUM Inactive VERAPAMIL HCL CR 180 MG CR-TABS TAKE 1 TAB DAILY VERAPAMIL HCL CR 180 MG CR-TABS VERAPAMIL HCL Inactive HYDROCODONE-ACETAMINOPHEN 5-325 MG TABS 1 q 4-6 hrs prn HYDROCODONE-ACETAMINOPHEN 5-325 MG TABS 438659 HYDROCODONE-ACETAMINOPHEN Inactive ROBAXIN-750 750 MG TABS 2 four times a day for 3 days as needed for muscle spasm, then 1 four times a day as needed ROBAXIN-750 750 MG TABS 790984 METHOCARBAMOL Inactive NITROSTAT 0.4 MG SUBL as directed NITROSTAT 0.4 MG SUBL NITROGLYCERIN Inactive METHOCARBAMOL 750 MG TABS 1 PO QID PRN METHOCARBAMOL 750 MG TABS 554843 METHOCARBAMOL Inactive VALIUM 5 MG TAB 1 po 30 minutes prior to your MRI VALIUM 5 MG TAB 653087 DIAZEPAM Inactive ANUSOL-HC 25 MG SUPPOSITORY 1 suppository rectally each evening as needed for anal fissure ANUSOL-HC 25 MG SUPPOSITORY 4904343 HYDROCORTISONE JAYDEN (RECTAL) Inactive ANUSOL-HC 25 MG SUPPOSITORY 1 rectally twice a day as needed for hemorrhoids ANUSOL-HC 25 MG SUPPOSITORY 2662236 HYDROCORTISONE JAYDEN (RECTAL) Inactive FLONASE 50 MCG/ACT SUSP 1 spray each nostril am and hs FLONASE 50 MCG/ACT SUSP FLUTICASONE PROPIONATE Inactive DICLOFENAC SODIUM 75 MG TBEC 1 tablet by q 12 hours PRN headaches DICLOFENAC SODIUM 75 MG TBEC 870918 DICLOFENAC SODIUM Inactive PA VITAMIN D-3 2000 UNIT CAPS 1 CAP PO DAILY PA VITAMIN D-3 2000 UNIT CAPS CHOLECALCIFEROL Inactive PREVACID 30 MG CPDR Take 1 tablet by mouth daily-PRN PREVACID 30 MG CPDR 418966 LANSOPRAZOLE Inactive DOXYCYCLINE HYCLATE 100 MG TAB 1 tab twice a day for 14 days 2013 DOXYCYCLINE HYCLATE 100 MG TAB 2067384 DOXYCYCLINE HYCLATE Inactive XOPENEX 1.25 MG/3ML NEBU 1 neb every 4 hours if needed for cough/congestion XOPENEX 1.25 MG/3ML NEBU 563518 LEVALBUTEROL HCL Inactive CYCLOBENZAPRINE HCL 10 MG TABS 1/2 - 1 tab by mouth three times daily if needed for spasms/pain CYCLOBENZAPRINE HCL 10 MG TABS 445586 CYCLOBENZAPRINE HCL Inactive ALBUTEROL SULFATE 0.083 % NEBU SOLN one vial per nebulizer every 4-6 hours as needed ALBUTEROL SULFATE 0.083 % NEBU SOLN 870731 ALBUTEROL SULFATE Inactive CEFTIN 500 MG TAB 1 twice a day CEFTIN 500 MG TAB 830999 CEFUROXIME AXETIL Inactive ZOFRAN ODT 4 MG TBDP 1 pill dissolved by mouth every 4 hours if needed for nausea ZOFRAN ODT 4 MG TBDP 841492 ONDANSETRON Inactive ADULT ASPIRIN EC LOW STRENGTH 81 MG TBEC Take 1 tablet by mouth daily 2014 ADULT ASPIRIN EC LOW STRENGTH 81 MG TBEC 913136 ASPIRIN Inactive CALCIUM 600+D PLUS MINERALS 600-400 [...] or an apple NIACIN 500 MG TABS 629887 NIACIN Inactive NIASPAN 500 MG ORAL CR-TABS 1 pill nightly x 1 week, then 2 pills nightly x 1 week, then 3 pills nightly x 1 week, then 4 pills nightly NIASPAN 500 MG ORAL CR-TABS NIACIN (ANTIHYPERLIPIDEMIC) Inactive OXYCODONE HCL 5 MG ORAL CAPS 1 TAB PO Q HS OXYCODONE HCL 5 MG ORAL CAPS 3377855 OXYCODONE HCL Inactive FLUTICASONE PROPIONATE 50 MCG/ACT SUSP 1 to 2 sprays each nostril daily 04/21 FLUTICASONE PROPIONATE 50 MCG/ACT SUSP 250201 FLUTICASONE PROPIONATE Inactive POLYTRIM 86802-9.1 UNIT/ML-% SOLN 1 gtt to affected eye q3h x 7 days POLYTRIM 87932-6.1 UNIT/ML-% SOLN 474782 POLYMYXIN B- TRIMETHOPRIM Inactive CHERATUSSIN AC 100-10 MG/5ML SYRP 1 tsp by mouth every 4 hours as needed for cough CHERATUSSIN AC 100-10 MG/5ML SYRP 288245 GUAIFENESIN-CODEINE Inactive LEVOTHYROXINE SODIUM 75 MCG TABS Take 1 tab daily LEVOTHYROXINE SODIUM 75 MCG TABS 215932 LEVOTHYROXINE SODIUM Inactive BACTRIM DS 800-160 MG TAB 1 tab by mouth twice daily BACTRIM DS 800-160 MG TAB 19820606 TRIMETHOPRIM-SULFAMETHOXAZOLE Inactive AZITHROMYCIN 250 MG TABS 2 po qd x 1 day, then 1 po qd x 4 days AZITHROMYCIN 250 MG TABS 4488652 AZITHROMYCIN Inactive CEFDINIR 300 MG CAPS by mouth twice a day CEFDINIR 300 MG CAPS 20020708 CEFDINIR Inactive AZITHROMYCIN 250 MG TABS 2 pills on day 1, then 1 pill daily x 4 days AZITHROMYCIN 250 MG TABS 1792388 AZITHROMYCIN Inactive DOXYCYCLINE HYCLATE 100 MG CAP 1 cap by mouth twice daily DOXYCYCLINE HYCLATE 100 MG CAP 7360393 DOXYCYCLINE HYCLATE Inactive FUROSEMIDE 20 MG TABS 1 pill by mouth daily, for edema FUROSEMIDE 20 MG TABS 583693 FUROSEMIDE Inactive AZITHROMYCIN 250 MG TABS 2 po qd x 1 day, then 1 po qd x 4 days AZITHROMYCIN 250 MG TABS 7977577 AZITHROMYCIN Inactive CEFTIN 500 MG TAB 1 twice a day CEFTIN 500 MG TAB 886003 CEFUROXIME AXETIL Inactive CEFDINIR 300 MG CAPS [...] Fluvirin, Fluarix, Agriflu(>=18 yo)) Fluzone (>3 yrs.) [XSR220] Influenza, seasonal, injectable influenza immunization (Flu Vax) has been administered Influenza - Unspecified Formulation [CVX88] influenza virus vaccine, unspecified formulation Seasonal influenza vaccine, injectable, containing preservative, for > 3 years old (Afluria, FluLaval, Fluzone, Fluvirin, Fluarix, Agriflu(>=18 yo)) Fluzone (>3 yrs.) [TYH666] Influenza, seasonal, injectable pneumococcal immunization administered Pneumovax 23 [CVX33] pneumococcal polysaccharide vaccine, 23 valent dT (Diphtheria and Tetanus) booster given given Td(adult) unspecified formulation Boostrix (Tetanus toxoid, reduced diphtheria toxoid and acellular pertussis vaccine, adsorbed), booster Boostrix [NIY866] tetanus toxoid, reduced diphtheria toxoid, and acellular pertussis vaccine, adsorbed Vital Signs Date Name Value Unit Range Description blood pressure, diastolic - 8462-4 72 mm[Hg] [...] Panel - Chemistry sodium, serum 142 mmol/L 577-907 8922/06/30 potassium, serum 4.4 mmol/L 3.5-5.2 chloride, serum 108 mmol/L 98-107 carbon dioxide, venous blood 25.1 mmol/L 21.0-32.0 blood glucose 82 mg/dL 65-110 calcium, serum 9.1 mg/dL 8.5-10.1 urea nitrogen, blood 18 mg/dL 7-18 creatinine, serum 1.31 mg/dL 0.55-1.30 Lab Report: [facility] Advanced Lipid and Inlammation Panel /74196 - Chemistry cholesterol, serum 148 mg/dL 077-382 3206/09/02 HDL cholesterol, serum 55 mg/dL > OR=46 [...] (L) - Chemistry sodium, serum 145 mmol/L 818-829 0495/09/02 potassium, serum 4.6 mmol/L 3.5-5.2 chloride, serum [...] Rate - Chemistry sodium, serum 139 mmol/L 527-041 0232/03/24 carbon dioxide, venous blood 22.4 mmol/L 21.0-32.0 [...] ... - Chemistry sodium, serum 143 mmol/L 403-857 3139/05/02 carbon dioxide, venous blood 25.6 mmol/L 21.0-32.0 [...] Negative mg/dL Negative sodium, serum 142 mmol/L 299-704 1684/07/18 carbon dioxide, venous blood 27.8 mmol/L 21.0-32.0 [...] mg/dL Encounters Code Encounter Date Provider Facility CPT-79838 Level 3 Est. Patient 11:01:51 CDT Gab Padron MD [facility] CPT-08006 Level 3 Est. Patient 15:27:02 CDT Jared Og MD [facility] CPT-50133 Level 4 Est. Patient 09:25:27 CDT Gab Padron MD [facility] CPT-06023 Level 3 Est. Patient 10:29:41 CDT Rodrigo Sarah [facility] CPT-11164 Level 4 Est. Patient 17:51:05 CDT Gab Padron MD [facility] CPT-22675 Level 3 Est. Patient 14:18:08 CDT Gab Padron MD [facility] CPT-34549 Level 4 Est. Patient 10:18:54 CDT Gab Padron MD [facility] CPT-13222 Level 3 Est. Patient 11:30:07 CDT Rodrigo Sarah [facility] CPT-08488 Level 4 Est. Patient 21:02:30 DIP UNIT OPERATOR Gab Padron MD [facility] CPT-69943 Level 3 Est. Patient 11:02:19 DIP UNIT OPERATOR Gab Padron MD [facility] CPT-46315 Level 4 Est. Patient 22:24:31 DIP UNIT OPERATOR Gab Padron MD [facility] CPT-98629 Level 3 Est. Patient 18:33:46 DIP UNIT OPERATOR Gab Padron MD [facility] CPT-89061 Level 3 Est. Patient 16:19:11 CDT Yolande Lindsay MD [facility] CPT-67060 Level 3 Est. Patient 18:59:14 CDT Yolande Lindsay MD [facility]-51333 Level 4 Est. Patient 21:29:26 CDT Yolande Lindsay MD [facility]-29851 Level 3 Est. Patient 07:37:45 CDT Yolande Lindsay MD [facility]-74320 Level 3 Est. Patient 17:03:46 CDT Yolande Lindsay MD [facility]-34400 Level 4 Est. Patient 20:02:13 DIP UNIT OPERATOR Yolande Lindsay MD [facility]-46150 Level 3 Est. Patient 16:02:07 DIP UNIT OPERATOR Alexis Ordaz MD [facility]-50588 Level 3 Est. Patient 12:41:24 DIP UNIT OPERATOR Yolande Lindsay MD [facility]-93812 Level 3 Est. Patient 15:41:20 DIP UNIT OPERATOR Yolande Lindsay MD [facility]-47280 Level 3 Est. Patient 13:20:02 DIP UNIT OPERATOR Yolande Lindsay MD [facility]-12851 Level 3 Est. Patient 15:00:38 CDT Jared Og MD [facility]-26757 Level 3 Est. Patient 10:22:32 CDT Yolande Lindsay MD [facility]-20041 Level 3 Est. Patient 17:12:58 CDT Yolande Lindsay MD [facility]-08489 Level 4 Est. Patient 13:30:58 CDT Yolande Lindsay MD [facility] CPT-69484 Level 4 New Patient 09:02:42 CDT Jared Og MD [facility]-09818 Level 3 Est. Patient 08:19:07 CDT Yolande Lindsay MD [facility]-61284 Level 3 Est. Patient 12:00:13 DIP UNIT OPERATOR Gab Padron MD [facility]-53346 Level 3 Est. Patient 16:15:23 DIP UNIT OPERATOR Yolande Lindsay MD [facility]89035 Level 2 Est. Patient 19:47:15 CDT Yolande Lindsay MD [facility]35782 Level 3 Est. Patient 21:38:31 CDT Yolande Lindsay MD [facility]77468 Level 3 Est. Patient 10:25:12 CDT Adiel PERAZA [facility]-64898 Level 4 Est. Patient 10:51:58 CDT Yolande Lindsay MD [facility]-16723 Level 3 Est. Patient 14:04:55 DIP UNIT OPERATOR Rodrigo Sarah [facility]-74566 Level 3 Est. Patient 10:46:35 DIP UNIT OPERATOR Rodrigo Sarah [facility]-64876 Level 3 Est. Patient 14:24:37 DIP UNIT OPERATOR Yolande Lindsay MD [facility]-57029 Level 3 Est. Patient 17:41:58 DIP UNIT OPERATOR Yolande Lindsay MD [facility]-13988 Level 2 Est. Patient 22:01:41 DIP UNIT OPERATOR Rodrigo Sarah [facility]-90706 Level 2 Est. Patient 22:01:11 DIP UNIT OPERATOR Rodrigo Sarah [facility]-44833 Level 3 Est. Patient 10:12:29 DIP UNIT OPERATOR Jillina Frazell GOLD LAYER [facility] CPT-24453 Level 3 Est. Patient 11:05:44 CDT Alexis Ordaz MD [facility] CPT-00262 Level 3 Est. Patient 14:57:20 CDT Yolande Lindsay MD [facility] CPT-07572 Level 3 Est. Patient 14:40:57 CDT Yolande Lindsay MD [facility] CPT-39168 Level 3 Est. Patient 20:55:40 CDT Yolande Lindsay MD [facility] CPT-23443 Level 3 Est. Patient 12:42:38 DIP UNIT OPERATOR Yolande Lindsay MD [facility] CPT-79346 Level 3 Est. Patient 11:54:49 DIP UNIT OPERATOR Des Hines MD [facility] CPT-15170 Level 3 Est. Patient 17:06:38 CDT Dewayne PERAZA [facility] Procedures Code Procedure Name Date Entry Date Standard Description CPT-47490 Foot, left, comp min 3V - XRAY USE ONLY 09:24:54 CDT CPT-85297 Abd single AP View - XRAY USE ONLY 11:16:17 CDT CPT-89919 T spine AP/ Lat - XRAY USE ONLY 09:34:21 CDT CPT-80578 Chest 2V Frontal and Lat - XRAY USE ONLY 10:48:51 CDT CPT-15041 LS spine comp w obliq 13:28:00 DIP UNIT OPERATOR CPT-J1040 Depo Medrol 80 mg (Methyl Prednisolone Acetate) 10:51: 28 DIP UNIT OPERATOR CPT-J1100 Decadron 8mg (Dexamethasone) 10:51:28 DIP UNIT OPERATOR CPT-97453 Abx/Therapy Injection 10:51:28 DIP UNIT OPERATOR CPT-J1100 Decadron 8mg (Dexamethasone) 21:02:30 DIP UNIT OPERATOR CPT-J1040 Depo Medrol 80 mg (Methyl Prednisolone Acetate) 21:02: 30 DIP UNIT OPERATOR [id number] Event Monitor - MC Transmission 09:12:32 CDT 08/06 [id number] Event Monitor - MC review and interp 09:12:32 CDT [id number] Event Monitor - MC recording 09:12:32 CDT CPT-62138 EKG Trac and Interp 16:50:22 CDT CPT-J1030 Depo Medrol 40 mg (Methyl Prednisolone Acetate) 17:05: 54 CDT CPT-J1100 Decadron 4mg (Dexamethasone) 17:05:54 CDT CPT-86927 Abx/Therapy Injection 17:05:54 CDT CPT-J1100 Decadron 4mg (Dexamethasone) 16:55:28 CDT CPT-J1030 Depo Medrol 40 mg (Methyl Prednisolone Acetate) 16:55: 28 CDT CPT-77841 Ankle Complete - Min 3V 15:58:50 CDT CPT-66391 Knee 3V 15:58:50 CDT CPT-29491 Hip comp min 2V 15:58:50 CDT CPT-J2270 Morphine Sulfate 10 mg 14:25:44 DIP UNIT OPERATOR CPT-J2550 Phenergan 12.5 mg (Promethazine) 14:25:44 DIP UNIT OPERATOR CPT-57506 Abx/Therapy Injection 14:25:44 DIP UNIT OPERATOR CPT-J2550 Phenergan 12.5 mg (Promethazine) 14:08:03 DIP UNIT OPERATOR CPT-J2270 Morphine Sulfate 10 mg 14:08:03 DIP UNIT OPERATOR CPT-17049 Bladder Scan 15:00:38 CDT CPT-TCMM Transitional Care Mgmt-Moderate 09:52:22 CDT CPT-J1030 Depo Medrol 40 mg (Methyl Prednisolone Acetate) 10:55: 18 CDT CPT-J1100 Decadron 4mg (Dexamethasone) 10:55:18 CDT CPT-95857 Abx/Therapy Injection 10:55:18 CDT CPT-J1030 Depo Medrol 40 mg (Methyl Prednisolone Acetate) 10:22: 32 CDT CPT-J1100 Decadron 4mg (Dexamethasone) 10:22:32 CDT CPT-84888 Postop F/U Visit 14:37:13 CDT CPT-10714 Ankle Complete - Min 3V 17:11:58 CDT CPT-69380 Foot comp min 3V 17:11:58 CDT CPT-42601 Bladder Scan 09:56:58 CDT CPT-11989 Postop F/U Visit 09:56:58 CDT CPT-92905 Cystoscopy 09:02:42 CDT CPT-86570 Bladder Scan 09:02:42 CDT CPT-13862 Abd single AP View 16:00:35 CDT CPT-73858 Administration single or combination vaccine inc oral 10 :15:43 CDT CPT-56805 Influenza split virus > age 3 10:15:43 CDT CPT-15027 Nail Avulsion 09:24:57 CDT CPT-OV Office Visit 11:15:41 CDT CPT-13935 Abx/Therapy Injection 10:51:30 CDT CPT-J3301 Kenalog 40 mg (Triamcinolone Acetonide) 10:25:12 CDT CPT-J1100 Decadron 4mg (Dexamethasone) 10:25:12 CDT CPT-38741 Anoscopy diagnostic 10:36:12 CDT CPT-OV Office Visit 15:34:31 CDT CPT-66393 Abx/Therapy Injection 08:21:15 DIP UNIT OPERATOR CPT-J1885 Toradol 60 mg (Ketorolac) 10:46:35 DIP UNIT OPERATOR CPT-OV Office Visit 19:51:16 DIP UNIT OPERATOR CPT-78324 Spec Collection and Handling Fee 14:34:18 DIP UNIT OPERATOR CPT-PV Prev. Care Visit 14:19:18 DIP UNIT OPERATOR CPT-85002 Postop F/U Visit 14:47:51 DIP UNIT OPERATOR CPT-35166 Postop F/U Visit 15:15:14 DIP UNIT OPERATOR CPT-99566 Postop F/U Visit 14:41:43 CDT CPT-61484 Postop F/U Visit 15:47:46 CDT CPT-OV Office Visit 15:27:23 CDT CPT-OV Office Visit 17:20:34 CDT CPT-91173 Abx/Therapy Injection 15:05:57 CDT CPT-J1100 Decadron 8mg (Dexamethasone) 14:44:57 CDT CPT-J1040 Depo Medrol 80 mg (Methyl Prednisolone Acetate) 14:44: 57 CDT CPT-JTINJ Joint Injection 10:17:37 CDT CPT-81931 Administration 2+ single or combination vaccines inc oral 13:01:46 DIP UNIT OPERATOR CPT-31468 Administration single or combination vaccine inc oral 13 :01:46 DIP UNIT OPERATOR CPT-06535 Pneumovax 13:01:46 DIP UNIT OPERATOR CPT-95361 Influenza split virus > age 3 13:01:46 DIP UNIT OPERATOR CPT-84791 Administration single or combination vaccine inc oral 08 :56:49 CDT [id number] Tdap 08:56:49 CDT
--- OUTSIDE RECORDS SUMMARY | 2017-03-21 22:42 | XMS REPORT | Clinical Summary ---
Author Author Admin, E Organization [facility] Address Unknown Phone Unavailable Allergies, Adverse Reactions, Alerts Allergy Name Reaction Description Start Date Severity Status Provider VALENTIN Critical Active Rodrigo Fracharlottel PATIENT ACCESS REGISTRAR CHLORHEXIDINE GLUCONATE tongue and gums swollen Critical Active Hoadante Otto RMA NORFLEX Rash Critical Active Silvestrellina Frazell PATIENT ACCESS REGISTRAR TRAZODONE HCL sees things Critical Active Dewayne [...] PAIN, LEFT LOWER QUADRANT ICD-789.04 Inactive Yolande Lidnsay MD PhD HEMATOCHEZIA ICD-578.1 Inactive Yolande Lindsay [...] Lindsay MD PhD Tick bite ICD-989.5 Inactive Yloande Lindsay MD PhD URI ICD-465.9 Inactive Yolande [...] then one daily for three days PREDNISONE 49944722295 Active Gab Padron MD Active TRIAMCINOLONE ACETONIDE 0.1 % CREA apply bid sparingly to rash TRIAMCINOLONE ACETONIDE 29668059492 No Longer Active Gab Padron MD Active TRAMADOL HCL 50 MG TABS 1 tab po every 6 hrs prn pain TRAMADOL HCL 23987853521 No Longer Active Gab Padron MD Active BACTRIM DS 800-160 MG TAB 1 tab by mouth twice daily TRIMETHOPRIM-SULFAMETHOXAZOLE 25651213102 No Longer Active Tisha Lambert PATIENT ACCESS REGISTRAR Active ADVAIR DISKUS 250-50 MCG/DOSE AEPB 1 puff BID FLUTICASONE-SALMETEROL 02941989992 No Longer Active Todd Callaway MD Active ONDANSETRON 4 MG TBDP 1 q4h PRN nausea ONDANSETRON 72532059973 No Longer Active LONNIE Iglesias Active FISH OIL 1000 MG CAPS 3 pills daily OMEGA-3 FATTY ACIDS 45802697618 No Longer Active LONNIE Iglesias Active CETIRIZINE HCL 10 MG ORAL TABS 1 po qd PRN Allergies CETIRIZINE HCL 01730524649 Active Gab Padron MD Active CLARITIN 10 MG TAB 1 tablet by mouth daily as needed for allergies LORATADINE 73033034677 No Longer Active Gab Padron MD Active PREDNISONE 20 MG TAB take 3 tabs daily for 3 days, 2 tabs daily for 3 days, 1 tab daily for 3 days, 1/2 tab daily for 3 days PREDNISONE 28341265443 No Longer Active Tisha Lambert APRN Active PREDNISONE 20 MG TAB 2 tabs daily for 3 days, 1 tab daily for 3 days, 1/2 tab daily for 2 days PREDNISONE 28756270261 No Longer Active Gab Padron MD Active ZOFRAN ODT 4 MG TBDP 1 po q6hr PRN Nausea ONDANSETRON 62856143684 Active Gab Padron MD Active IBUPROFEN 600 MG TAB 1 tablet by mouth every 6 hours for 7 days, then 1 tablet every 6 hours as needed. Take with food IBUPROFEN 96108539815 Active Rodrigo Sarah APRN Active BACTRIM DS 800-160 MG TAB 1 tab by mouth twice daily TRIMETHOPRIM-SULFAMETHOXAZOLE 60918376358 No Longer Active Gab Padron MD Active LEVOTHYROXINE SODIUM 75 MCG TABS Take 1 tab daily LEVOTHYROXINE SODIUM 82080637625 No Longer Active Mariana HICKEYA Active SYNTHROID 88 MCG ORAL TABS Take one by mouth daily LEVOTHYROXINE SODIUM 27262513141 Active Gab Padron MD Active CHERATUSSIN AC 100-10 MG/5ML SYRP 1 tsp by mouth every 4 hours as needed for cough GUAIFENESIN-CODEINE 64025372495 No Longer Active Gab Padron MD Active POLYTRIM 67638-1.1 UNIT/ML-% SOLN 1 gtt to affected eye q3h x 7 days POLYMYXIN B-TRIMETHOPRIM 91132999710 No Longer Active Gab Padron MD Active FLUTICASONE PROPIONATE 50 MCG/ACT SUSP 1 to 2 sprays each nostril daily 04/21 FLUTICASONE PROPIONATE 80651685639 No Longer Active Gab Padron MD Active TRILEPTAL 600 MG TABS Take one 1 tablet in Am and 1 tablet at night OXCARBAZEPINE 65166601577 Active Gab Padron MD Active CEFDINIR 300 MG CAPS 1 po BID x 10 days CEFDINIR 84279835576 No Longer Active Rodrigo Sarah APRN Active CEFTIN 500 MG TAB 1 twice a day CEFUROXIME AXETIL 87010070364 No Longer Active Gab Padron MD Active AZITHROMYCIN 250 MG TABS 2 po qd x 1 day, then 1 po qd x 4 days AZITHROMYCIN 08310834853 No Longer Active Rodrigo Sarah APRN Active OXYCODONE HCL 5 MG ORAL CAPS 1 TAB PO Q HS OXYCODONE HCL 44812929901 No Longer Active Rodrigo Sarah APRN Active NIASPAN 500 MG ORAL CR-TABS 1 pill nightly x 1 week, then 2 pills nightly x 1 week, then 3 pills nightly x 1 week, then 4 pills nightly NIACIN (ANTIHYPERLIPIDEMIC) 65281657592 No Longer Active Rodrigo Sarah APRN Active NIACIN 500 MG TABS 1 pill by mouth nightly x 1 week, then 2 pills x 1 week, then 3 pills x 1 week, then 4 pills nightly - take after evening meal, with applesauce or an apple NIACIN 33820961746 No Longer Active Yolande Lindsay MD PhD Active FUROSEMIDE 20 MG TAB 1 tablet by mouth daily FUROSEMIDE 38972340280 Active Gab Padron MD Active LISINOPRIL 20 MG ORAL TABS 1 tab by mouth daily LISINOPRIL 83373672018 Active Gab Padron MD Active FUROSEMIDE 20 MG TABS 1 pill by mouth daily, for edema FUROSEMIDE 36069482072 No Longer Active Yolande Lindsay MD PhD Active ATORVASTATIN CALCIUM 10 MG TABS 1 pill by mouth daily, for cholesterol 09/06 ATORVASTATIN CALCIUM 97803093677 Active Gab Padron MD Active CALCIUM 600+D PLUS MINERALS 600-400 MG-UNIT ORAL CHEW 1 tab by mouth daily CALCIUM CARBONATE-VIT D-MIN 87393438752 No Longer Active Yolande Lindsay MD PhD Active CYCLOBENZAPRINE HCL 10 MG TABS 1 tablet by mouth three times daily as needed for muscle spasm/pain CYCLOBENZAPRINE HCL 59464560853 Active Yolande Lindsay MD PhD Active ADULT ASPIRIN EC LOW STRENGTH 81 MG TBEC Take 1 tablet by mouth daily 2014 ASPIRIN 01413131595 No Longer Active Yolande Lindsay MD PhD Active ZOFRAN ODT 4 MG TBDP 1 pill dissolved by mouth every 4 hours if needed for nausea ONDANSETRON 04373303646 No Longer Active Yolande Lindsay MD PhD Active CEFTIN 500 MG TAB 1 twice a day CEFUROXIME AXETIL 59977625700 No Longer Active Yolande Lindsay MD PhD Active ALBUTEROL SULFATE 0.083 % NEBU SOLN one vial per nebulizer every 4-6 hours as needed ALBUTEROL SULFATE 74010530382 No Longer Active Alexis Ordaz MD Active DOXYCYCLINE HYCLATE 100 MG CAP 1 cap by mouth twice daily DOXYCYCLINE HYCLATE 74675348320 No Longer Active Yolande Lindsay MD PhD Active CYCLOBENZAPRINE HCL 10 MG TABS 1/2 - 1 tab by mouth three times daily if needed for spasms/pain CYCLOBENZAPRINE HCL 74388228281 No Longer Active Yolande Lindsay MD PhD Active AZITHROMYCIN 250 MG TABS 2 pills on day 1, then 1 pill daily x 4 days AZITHROMYCIN 64553933806 No Longer Active Yolande Lindsay MD PhD Active XOPENEX 1.25 MG/3ML NEBU 1 neb every 4 hours if needed for cough/congestion LEVALBUTEROL HCL 89332112017 No Longer Active Yolande Lindsay MD PhD Active DOXYCYCLINE HYCLATE 100 MG TAB 1 tab twice a day for 14 days 2013 DOXYCYCLINE HYCLATE 95467131474 No Longer Active Yolande Lindsay MD PhD Active PREVACID 30 MG CPDR Take 1 tablet by mouth daily-PRN LANSOPRAZOLE 07733545282 No Longer Active Yolande Lindsay MD PhD Active PA VITAMIN D-3 2000 UNIT CAPS 1 CAP PO DAILY CHOLECALCIFEROL 68525605343 No Longer Active Yolande Lindsay MD PhD Active CEFDINIR 300 MG CAPS by mouth twice a day CEFDINIR 16868367149 No Longer Active Gab Padron MD Active TOPAMAX 50 MG TABS 1 PO twice daily TOPIRAMATE 87710880351 Active Yolande Lindsay MD PhD Active AZITHROMYCIN 250 MG TABS 2 po qd x 1 day, then 1 po qd x 4 days AZITHROMYCIN 97679427746 No Longer Active Yolande Lindsay MD PhD Active DICLOFENAC SODIUM 75 MG TBEC 1 tablet by q 12 hours PRN headaches DICLOFENAC SODIUM 49417261126 No Longer Active Yolande Lindsay MD PhD Active FLONASE 50 MCG/ACT SUSP 1 spray each nostril am and hs FLUTICASONE PROPIONATE 20286333322 No Longer Active Todd Callaway MD Active ANUSOL-HC 25 MG SUPPOSITORY 1 rectally twice a day as needed for hemorrhoids HYDROCORTISONE JAYDEN (RECTAL) 19161385241 No Longer Active Yolande Lindsay MD PhD Active ANUSOL-HC 25 MG SUPPOSITORY 1 suppository rectally each evening as needed for anal fissure HYDROCORTISONE JAYDEN (RECTAL) 53134754481 No Longer Active LONNIE Iglesias Active VALIUM 5 MG TAB 1 po 30 minutes prior to your MRI DIAZEPAM 48960459560 No Longer Active LONNIE Iglesias Active METHOCARBAMOL 750 MG TABS 1 PO QID PRN METHOCARBAMOL 45871774151 No Longer Active Daphne Wetzel APRN Active NITROSTAT 0.4 MG SUBL as directed NITROGLYCERIN 19444326198 No Longer Active Jillina Frazell PATIENT ACCESS REGISTRAR Active ROBAXIN-750 750 MG TABS 2 four times a day for 3 days as needed for muscle spasm, then 1 four times a day as needed METHOCARBAMOL 86667506557 No Longer Active Silvestrellnacho Sarah APRN Active HYDROCODONE-ACETAMINOPHEN 5-325 MG TABS 1 q 4-6 hrs prn HYDROCODONE-ACETAMINOPHEN 93876844590 No Longer Active Silvestrellnacho Sarah APRN Active VERAPAMIL HCL CR 180 MG CR-TABS TAKE 1 TAB DAILY VERAPAMIL HCL 09249712774 No Longer Active Yolande Lindsay MD PhD Active BACTRIM DS 800-160 MG TAB 1 tab by mouth twice daily TRIMETHOPRIM-SULFAMETHOXAZOLE 31729175829 No Longer Active Yolande Lindsay MD PhD Active NEXIUM 40 MG PACK 1 by mouth daily ESOMEPRAZOLE MAGNESIUM 37610402271 No Longer Active Des Hines MD Active EPIPEN 2-CHARLETTE 0.3 MG/0.3ML OMARI as need for allergic reaction EPINEPHRINE 79069598224 Active Yolande Lindsay MD PhD Active NEXIUM 40 MG CPDR 1 PO Q D DAY ESOMEPRAZOLE MAGNESIUM 08218876469 No Longer Active Sadia Perry RN Active NEXIUM 40 MG PACK 1 by mouth daily NEXIUM 40 MG PACK ESOMEPRAZOLE MAGNESIUM Inactive VERAPAMIL HCL CR 180 MG CR-TABS TAKE 1 TAB DAILY VERAPAMIL HCL CR 180 MG CR-TABS VERAPAMIL HCL Inactive HYDROCODONE-ACETAMINOPHEN 5-325 MG TABS 1 q 4-6 hrs prn HYDROCODONE-ACETAMINOPHEN 5-325 MG TABS 719645 HYDROCODONE-ACETAMINOPHEN Inactive ROBAXIN-750 750 MG TABS 2 four times a day for 3 days as needed for muscle spasm, then 1 four times a day as needed ROBAXIN-750 750 MG TABS 274492 METHOCARBAMOL Inactive NITROSTAT 0.4 MG SUBL as directed NITROSTAT 0.4 MG SUBL 647182 NITROGLYCERIN Inactive METHOCARBAMOL 750 MG TABS 1 PO QID PRN METHOCARBAMOL 750 MG TABS 707529 METHOCARBAMOL Inactive VALIUM 5 MG TAB 1 po 30 minutes prior to your MRI VALIUM 5 MG TAB 001580 DIAZEPAM Inactive ANUSOL-HC 25 MG SUPPOSITORY 1 suppository rectally each evening as needed for anal fissure ANUSOL-HC 25 MG SUPPOSITORY 1943188 HYDROCORTISONE JAYDEN (RECTAL) Inactive ANUSOL-HC 25 MG SUPPOSITORY 1 rectally twice a day as needed for hemorrhoids ANUSOL-HC 25 MG SUPPOSITORY 8861832 HYDROCORTISONE JAYDEN (RECTAL) Inactive FLONASE 50 MCG/ACT SUSP 1 spray each nostril am and hs FLONASE 50 MCG/ACT SUSP 4343608 FLUTICASONE PROPIONATE Inactive DICLOFENAC SODIUM 75 MG TBEC 1 tablet by q 12 hours PRN headaches DICLOFENAC SODIUM 75 MG TBEC 489393 DICLOFENAC SODIUM Inactive PA VITAMIN D-3 2000 UNIT CAPS 1 CAP PO DAILY PA VITAMIN D-3 2000 UNIT CAPS CHOLECALCIFEROL Inactive PREVACID 30 MG CPDR Take 1 tablet by mouth daily-PRN PREVACID 30 MG CPDR 474012 LANSOPRAZOLE Inactive DOXYCYCLINE HYCLATE 100 MG TAB 1 tab twice a day for 14 days 2013 DOXYCYCLINE HYCLATE 100 MG TAB 8684038 DOXYCYCLINE HYCLATE Inactive XOPENEX 1.25 MG/3ML NEBU 1 neb every 4 hours if needed for cough/congestion XOPENEX 1.25 MG/3ML NEBU 692085 LEVALBUTEROL HCL Inactive CYCLOBENZAPRINE HCL 10 MG TABS 1/2 - 1 tab by mouth three times daily if needed for spasms/pain CYCLOBENZAPRINE HCL 10 MG TABS 310305 CYCLOBENZAPRINE HCL Inactive ALBUTEROL SULFATE 0.083 % NEBU SOLN one vial per nebulizer every 4-6 hours as needed ALBUTEROL SULFATE 0.083 % NEBU SOLN 822508 ALBUTEROL SULFATE Inactive CEFTIN 500 MG TAB 1 twice a day CEFTIN 500 MG TAB 049590 CEFUROXIME AXETIL Inactive ZOFRAN ODT 4 MG TBDP 1 pill dissolved by mouth every 4 hours if needed for nausea ZOFRAN ODT 4 MG TBDP 475310 ONDANSETRON Inactive ADULT ASPIRIN EC LOW STRENGTH 81 MG TBEC Take 1 tablet by mouth daily 2014 ADULT ASPIRIN EC LOW STRENGTH 81 MG TBEC 635111 ASPIRIN Inactive CALCIUM 600+D PLUS MINERALS 600-400 [...] or an apple NIACIN 500 MG TABS 051474 NIACIN Inactive NIASPAN 500 MG ORAL CR-TABS 1 pill nightly x 1 week, then 2 pills nightly x 1 week, then 3 pills nightly x 1 week, then 4 pills nightly NIASPAN 500 MG ORAL CR-TABS NIACIN (ANTIHYPERLIPIDEMIC) Inactive OXYCODONE HCL 5 MG ORAL CAPS 1 TAB PO Q HS OXYCODONE HCL 5 MG ORAL CAPS 9280499 OXYCODONE HCL Inactive FLUTICASONE PROPIONATE 50 MCG/ACT SUSP 1 to 2 sprays each nostril daily 04/21 FLUTICASONE PROPIONATE 50 MCG/ACT SUSP 7487646 FLUTICASONE PROPIONATE Inactive POLYTRIM 57624-6.1 UNIT/ML-% SOLN 1 gtt to affected eye q3h x 7 days POLYTRIM 44169-6.1 UNIT/ML-% SOLN 159991 POLYMYXIN B- TRIMETHOPRIM Inactive CHERATUSSIN AC 100-10 MG/5ML SYRP 1 tsp by mouth every 4 hours as needed for cough CHERATUSSIN AC 100-10 MG/5ML SYRP 676569 GUAIFENESIN-CODEINE Inactive LEVOTHYROXINE SODIUM 75 MCG TABS Take 1 tab daily LEVOTHYROXINE SODIUM 75 MCG TABS 740659 LEVOTHYROXINE SODIUM Inactive CLARITIN 10 MG TAB 1 tablet by mouth daily as needed for allergies CLARITIN 10 MG TAB 141855 LORATADINE Inactive FISH OIL 1000 MG CAPS 3 pills daily FISH OIL 1000 MG CAPS OMEGA-3 FATTY ACIDS Inactive ONDANSETRON 4 MG TBDP 1 q4h PRN nausea ONDANSETRON 4 MG TBDP 467308 ONDANSETRON Inactive ADVAIR DISKUS 250-50 MCG/DOSE AEPB 1 puff BID ADVAIR DISKUS 250-50 MCG/DOSE AEPB FLUTICASONE-SALMETEROL Inactive TRAMADOL HCL 50 MG TABS 1 tab po every 6 hrs prn pain TRAMADOL HCL 50 MG TABS 936008 TRAMADOL HCL Inactive TRIAMCINOLONE ACETONIDE 0.1 % CREA apply bid sparingly to rash TRIAMCINOLONE ACETONIDE 0.1 % CREA 4351305 TRIAMCINOLONE ACETONIDE Inactive BACTRIM DS 800-160 MG TAB 1 tab by mouth twice daily BACTRIM DS 800-160 MG TAB 893235 TRIMETHOPRIM-SULFAMETHOXAZOLE Inactive AZITHROMYCIN 250 MG TABS 2 po qd x 1 day, then 1 po qd x 4 days AZITHROMYCIN 250 MG TABS 0996630 AZITHROMYCIN Inactive CEFDINIR 300 MG CAPS by mouth twice a day CEFDINIR 300 MG CAPS 050554 CEFDINIR Inactive AZITHROMYCIN 250 MG TABS 2 pills on day 1, then 1 pill daily x 4 days AZITHROMYCIN 250 MG TABS 6105015 AZITHROMYCIN Inactive DOXYCYCLINE HYCLATE 100 MG CAP 1 cap by mouth twice daily DOXYCYCLINE HYCLATE 100 MG CAP 5534322 DOXYCYCLINE HYCLATE Inactive FUROSEMIDE 20 MG TABS 1 pill by mouth daily, for edema FUROSEMIDE 20 MG TABS 132971 FUROSEMIDE Inactive AZITHROMYCIN 250 MG TABS 2 po qd x 1 day, then 1 po qd x 4 days AZITHROMYCIN 250 MG TABS 4752231 AZITHROMYCIN Inactive CEFTIN 500 MG TAB 1 twice a day CEFTIN 500 MG TAB 881711 CEFUROXIME AXETIL Inactive CEFDINIR 300 MG CAPS 1 po BID x 10 days CEFDINIR 300 MG CAPS 992349 CEFDINIR Inactive BACTRIM DS 800-160 MG TAB 1 tab by mouth twice daily BACTRIM DS 800-160 MG TAB 796199 TRIMETHOPRIM-SULFAMETHOXAZOLE Inactive PREDNISONE 20 MG TAB 2 tabs daily for 3 days, 1 tab daily for 3 days, 1/2 tab daily for 2 days PREDNISONE 20 MG TAB 999176 PREDNISONE Inactive PREDNISONE 20 MG TAB take 3 tabs daily for 3 days, 2 tabs daily for 3 days, 1 tab daily for 3 days, 1/2 tab daily for 3 days PREDNISONE 20 MG TAB 779010 PREDNISONE Inactive BACTRIM DS 800-160 MG TAB 1 tab by mouth twice daily BACTRIM DS 800-160 MG TAB 19820606 TRIMETHOPRIM-SULFAMETHOXAZOLE Inactive Immunizations Vaccine Administration Date Value Standard Description Seasonal influenza vaccine, injectable, containing preservative, for > 3 years old (Afluria, FluLaval, Fluzone, Fluvirin, Fluarix, Agriflu(>=18 yo)) Fluzone (>3 yrs.) [VAE950] Influenza, seasonal, injectable influenza immunization (Flu Vax) has been administered Influenza - Unspecified Formulation [CVX88] influenza virus vaccine, unspecified formulation Seasonal influenza vaccine, injectable, containing preservative, for > 3 years old (Afluria, FluLaval, Fluzone, Fluvirin, Fluarix, Agriflu(>=18 yo)) Fluzone (>3 yrs.) [YDE977] Influenza, seasonal, injectable pneumococcal immunization administered Pneumovax 23 [CVX33] pneumococcal polysaccharide vaccine, 23 valent dT (Diphtheria and Tetanus) booster given given Td(adult) unspecified formulation Boostrix (Tetanus toxoid, reduced diphtheria toxoid and acellular pertussis vaccine, adsorbed), booster Boostrix [KJS814] tetanus toxoid, reduced diphtheria toxoid, and acellular [...] PANEL - Chemistry cholesterol, serum 166 mg/dL 043-423 9065/12/06 triglyceride, serum, fasting 86 mg/dL 30-200 HDL [...] negative Encounters Code Encounter Date Provider Facility CPT-46900 Level 3 Est. Patient 14:50:29 CDT Gab Padron MD [facility] CPT-89968 Level 3 Est. Patient 14:46:09 CDT Tisha Lambert APRN [facility] CPT-45203 Level 4 New Patient 16:13:15 CDT Todd Callaway MD [facility] CPT-24685 Level 4 Est. Patient 13:18:33 CDT Gab Padron MD [facility] CPT-35628 Level 3 Est. Patient 15:20:50 CDT Jared Og MD [facility] CPT-59834 Level 3 Est. Patient 17:43:55 [employer] Gab Padron MD [facility] CPT-52458 Level 3 Est. Patient 17:07:49 [employer] Jared Og MD [facility] CPT-52858 Level 4 Est. Patient 19:55:18 [employer]NA[employer] Jared Og MD [facility] CPT-10919 Level 3 Est. Patient 20:13:34 [employer]NA[employer] Jared Og MD [facility] CPT-88548 Level 4 Est. Patient 16:31:27 CDT Gab Padron MD [facility] CPT-90495 Level 2 Est. Patient 12:23:38 CDT Jared Og MD [facility] CPT-68514 Level 3 Est. Patient 11:01:51 CDT Gab Padron MD [facility] CPT-27701 Level 3 Est. Patient 15:27:02 CDT Jared Og MD [facility] [place] CPT-99917 Level 4 Est. Patient 09:25:27 CDT Gab Padron MD [facility]-57823 Level 3 Est. Patient 10:29:41 [facility] Patient 17:51:05 CDT Gab Padron MD [facility]-79659 Level 3 Est. Patient 14:18:08 CDT Gab Padron MD [facility]-47232 Level 4 Est. Patient 10:18:54 CDT Gab Padron MD [facility]-88865 Level 3 Est. Patient 11:30:07 CDT Rodrigo Sarah [facility]-94348 Level 4 Est. Patient 21:02:30 [employer] Gab Padron MD [facility]-38666 Level 3 Est. Patient 11:02:19 [employer] Gab Padron MD [facility]-58650 Level 4 Est. Patient 22:24:31 [employer]NA[employer] Gab Padron MD [facility]-76837 Level 3 Est. Patient 18:33:46 [employer] Gab Padron MD [facility]-98828 Level 3 Est. Patient 16:19:11 CDT Yolande Lindsay MD [facility]-60107 Level 3 Est. Patient 18:59:14 CDT Yolande Lnidsay MD [facility]-86255 Level 4 Est. Patient 21:29:26 CDT Yolande Lindsay MD [facility]-54922 Level 3 Est. Patient 07:37:45 CDT Yolande Lindsay MD [facility]-86228 Level 3 Est. Patient 17:03:46 CDT Yolande Lindsay MD [facility]-51699 Level 4 Est. Patient 20:02:13 [employer] Yolande Lindsay MD [facility] CPT-15600 Level 3 Est. Patient 16:02:07 [employer] Alexis Ordaz MD [facility] CPT-46525 Level 3 Est. Patient 12:41:24 [employer] Yolande Lindsay MD [facility] CPT-12918 Level 3 Est. Patient 15:41:20 [employer] Yolande Lindsay MD [facility] CPT-06077 Level 3 Est. Patient 13:20:02 [employer] Yolande Lindsay MD [facility] CPT-41710 Level 3 Est. Patient 15:00:38 CDT Jared Og MD [facility]-31063 Level 3 Est. Patient 10:22:32 CDT Yolande Lindsay MD [facility] CPT-16151 Level 3 Est. Patient 17:12:58 CDT Yolande Lindsay MD [facility] CPT-88146 Level 4 Est. Patient 13:30:58 CDT Yolande Lindsay MD [facility] CPT-68195 Level 4 New Patient 09:02:42 CDT Jared Og MD [facility] CPT-80421 Level 3 Est. Patient 08:19:07 CDT Yolande Lindsay MD [facility] CPT-72570 Level 3 Est. Patient 12:00:13 [employer] Gab Padron MD [facility] CPT-73939 Level 3 Est. Patient 16:15:23 [employer] Yolande Lindsay MD [facility] CPT-26943 Level 2 Est. Patient 19:47:15 CDT Yolande Lindsay MD [facility] CPT-27014 Level 3 Est. Patient 21:38:31 CDT Yolande Lindsay MD [facility]-74823 Level 3 Est. Patient 10:25:12 CDT Adiel PERAZA [facility]-54054 Level 4 Est. Patient 10:51:58 CDT Yolande Lindsay MD [facility]-91586 Level 3 Est. Patient 14:04:55 [employer] Rodrigo Sarah [facility]-51559 Level 3 Est. Patient 10:46:35 [employer] Rodrigo Sarah [facility] CPT-22006 Level 3 Est. Patient 14:24:37 [employer] Yolande Lindsay MD [facility]-40494 Level 3 Est. Patient 17:41:58 [employer] Yolande Lindsay MD [facility]-28398 Level 2 Est. Patient 22:01:41 [employer] Rodrigo Sarah [facility]-09413 Level 2 Est. Patient 22:01:11 [employer]NA[employer] Rodrigo Sarah [facility]-54570 Level 3 Est. Patient 10:12:29 [employer] Rodrigo Sarah [facility] CPT-22630 Level 3 Est. Patient 11:05:44 CDT Alexis Ordaz MD [facility]-15395 Level 3 Est. Patient 14:57:20 CDT Yolande Lindsay MD [facility]-92568 Level 3 Est. Patient 14:40:57 CDT Yolande Lindsay MD [facility]-87512 Level 3 Est. Patient 20:55:40 CDT Yolande Lindsay MD [facility]-77517 Level 3 Est. Patient 12:42:38 [employer] Yolande Lindsay MD [facility]38554 Level 3 Est. Patient 11:54:49 [employer] Des Hines MD [facility] CPT-09317 Level 3 Est. Patient 17:06:38 CDT Dewayne PERAZA [facility] Procedures Code Procedure Name Date Entry Date Standard Description CPT-J2930 Solu Medrol 125 mg (Methyl Prednisolone Sodium Succinate) 13:19:02 CDT CPT-57651 Abx/Therapy Injection 13:19:02 CDT CPT-J2930 Solu Medrol 125 mg (Methyl Prednisolone Sodium Succinate) 13:05:03 CDT CPT-10960 Hip, complete, 2-3 views - XRAY USE ONLY 17:19:04 [employer] CPT-77367 Venipuncture Draw Fee 08:37:59 [employer] CPT-15637 Liver Profile - LAB USE ONLY 08:37:59 [employer] CPT-02996 Lipid - LAB USE ONLY 08:37:58 [employer] CPT-59171 First Vx - Ix admin via ID IM or jet injects without counseling by physician 11:52:31 CDT CPT-62481 Fluzone Preservative Free Intramuscular Suspension 11:52 :31 CDT CPT-22174 Foot, left, comp min 3V - XRAY USE ONLY 09:24:54 CDT CPT-86233 Abd single AP View - XRAY USE ONLY 11:16:17 CDT CPT-78420 T spine AP/ Lat - XRAY USE ONLY 09:34:21 CDT CPT-39988 Chest 2V Frontal and Lat - XRAY USE ONLY 10:48:51 CDT CPT-55460 LS spine comp w obliq 13:28:00 [employer] CPT-J1040 Depo Medrol 80 mg (Methyl Prednisolone Acetate) 10:51: 28 [employer] CPT-J1100 Decadron 8mg (Dexamethasone) 10:51:28 [employer] CPT-88986 Abx/Therapy Injection 10:51:28 [employer] CPT-J1100 Decadron 8mg (Dexamethasone) 21:02:30 [employer] CPT-J1040 Depo Medrol 80 mg (Methyl Prednisolone Acetate) 21:02: 30 [employer] [id number] Event Monitor - MC Transmission 09:12:32 CDT 08/06 [id number] Event Monitor - MC review and interp 09:12:32 CDT [id number] Event Monitor - MC recording 09:12:32 CDT CPT-70512 EKG Trac and Interp 16:50:22 CDT CPT-J1030 Depo Medrol 40 mg (Methyl Prednisolone Acetate) 17:05: 54 CDT CPT-J1100 Decadron 4mg (Dexamethasone) 17:05:54 CDT CPT-72890 Abx/Therapy Injection 17:05:54 CDT CPT-J1100 Decadron 4mg (Dexamethasone) 16:55:28 CDT CPT-J1030 Depo Medrol 40 mg (Methyl Prednisolone Acetate) 16:55: 28 CDT CPT-97074 Ankle Complete - Min 3V 15:58:50 CDT CPT-97230 Knee 3V 15:58:50 CDT CPT-34570 Hip comp min 2V 15:58:50 CDT CPT-J2270 Morphine Sulfate 10 mg 14:25:44 [employer] CPT-J2550 Phenergan 12.5 mg (Promethazine) 14:25:44 [employer] CPT-91100 Abx/Therapy Injection 14:25:44 [employer] CPT-J2550 Phenergan 12.5 mg (Promethazine) 14:08:03 [employer] CPT-J2270 Morphine Sulfate 10 mg 14:08:03 [employer] CPT-18988 Bladder Scan 15:00:38 CDT CPT-TCMM Transitional Care Mgmt-Moderate 09:52:22 CDT CPT-J1030 Depo Medrol 40 mg (Methyl Prednisolone Acetate) 10:55: 18 CDT CPT-J1100 Decadron 4mg (Dexamethasone) 10:55:18 CDT CPT-97050 Abx/Therapy Injection 10:55:18 CDT CPT-J1030 Depo Medrol 40 mg (Methyl Prednisolone Acetate) 10:22: 32 CDT CPT-J1100 Decadron 4mg (Dexamethasone) 10:22:32 CDT CPT-27083 Postop F/U Visit 14:37:13 CDT CPT-79869 Ankle Complete - Min 3V 17:11:58 CDT CPT-37990 Foot comp min 3V 17:11:58 CDT CPT-93575 Bladder Scan 09:56:58 CDT CPT-07571 Postop F/U Visit 09:56:58 CDT CPT-06427 Cystoscopy 09:02:42 CDT CPT-69024 Bladder Scan 09:02:42 CDT CPT-96255 Abd single AP View 16:00:35 CDT CPT-22725 Administration single or combination vaccine inc oral 10 :15:43 CDT CPT-42497 Influenza split virus > age 3 10:15:43 CDT CPT-29892 Nail Avulsion 09:24:57 CDT CPT-OV Office Visit 11:15:41 CDT CPT-28190 Abx/Therapy Injection 10:51:30 CDT CPT-J3301 Kenalog 40 mg (Triamcinolone Acetonide) 10:25:12 CDT CPT-J1100 Decadron 4mg (Dexamethasone) 10:25:12 CDT CPT-05623 Anoscopy diagnostic 10:36:12 CDT CPT-OV Office Visit 15:34:31 CDT CPT-51587 Abx/Therapy Injection 08:21:15 [employer] CPT-J1885 Toradol 60 mg (Ketorolac) 10:46:35 [employer] CPT-OV Office Visit 19:51:16 [employer] CPT-59069 Spec Collection and Handling Fee 14:34:18 [employer] CPT-PV Prev. Care Visit 14:19:18 [employer] CPT-51865 Postop F/U Visit 14:47:51 [employer] CPT-43558 Postop F/U Visit 15:15:14 [employer] CPT-83710 Postop F/U Visit 14:41:43 CDT CPT-20034 Postop F/U Visit 15:47:46 CDT CPT-OV Office Visit 15:27:23 CDT CPT-OV Office Visit 17:20:34 CDT CPT-49290 Abx/Therapy Injection 15:05:57 CDT CPT-J1100 Decadron 8mg (Dexamethasone) 14:44:57 CDT CPT-J1040 Depo Medrol 80 mg (Methyl Prednisolone Acetate) 14:44: 57 CDT CPT-JTINJ Joint Injection 10:17:37 CDT CPT-36957 Administration 2+ single or combination vaccines inc oral 13:01:46 [employer] CPT-54978 Administration single or combination vaccine inc oral 13 :01:46 [employer] CPT-21731 Pneumovax 13:01:46 [employer] CPT-54790 Influenza split virus > age 3 13:01:46 [employer] CPT-74451 Administration single or combination vaccine inc oral 08 :56:49 CDT CPT-28383 Tdap 08:56:49 CDT
--- OUTSIDE RECORDS SUMMARY | 2017-03-21 22:45 | XMS REPORT ---
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 CHLORHEXIDINE GLUCONATE tongue and gums swollen Critical Active Hoa Kabaford RMA NORFLEX Rash Critical Active Rowenaina Farshadzell ELECTRICAL ENGINEER MEP TRAZODONE HCL sees things Critical Active Dewayne [...] Status Provider Patient Instruction PREDNISONE 20 MG ORAL TABLET 2 tabs daily for 3 days, 1 tab daily for 3 days, 1/2 tab daily for 2 days end 02/05/17 PREDNISONE [id number] No Longer Active Gab Padron MD Active ZANTAC 150 MG ORAL TABLET 1 by mouth twice daily RANITIDINE HCL 43865228660 Active Gab Padron MD Active TRIAMCINOLONE ACETONIDE 0.1 % EXTERNAL CREAM Apply to affected area 3 times daily for up to 2 weeks TRIAMCINOLONE ACETONIDE 34051521103 Active Tisha Lambert APRN Active LISINOPRIL 40 MG ORAL TABLET 1 tablet by mouth daily LISINOPRIL 07165618887 Active Tisha Lambert APRN Active IBUPROFEN 600 MG ORAL TABLET 1 tablet by mouth every 6 hours for 7 days, then 1 tablet every 6 hours as needed. Take with food IBUPROFEN 95892932362 No Longer Active Tisha Lambert APRN Active PREDNISONE 20 MG ORAL TABLET 1 tab twice daily for 3 day, then one daily for three days PREDNISONE 81195703611 No Longer Active Tisha Lambert APRN Active TRIAMCINOLONE ACETONIDE 0.1 % EXTERNAL CREAM apply bid sparingly to rash 2014 TRIAMCINOLONE ACETONIDE 39742769840 No Longer Active Gab Padron MD Active TRAMADOL HCL 50 MG ORAL TABLET 1 tab po every 6 hrs prn pain 2016 TRAMADOL HCL 14923427780 No Longer Active Gab Padron MD Active BACTRIM DS 800-160 MG ORAL TABLET 1 tab by mouth twice daily 2016 TRIMETHOPRIM-SULFAMETHOXAZOLE 30207788662 No Longer Active Tisha Lambert APRN Active ADVAIR DISKUS 250-50 MCG/DOSE INHALATION AEROSOL POWDER BREATH ACTIVATED 1 puff BID FLUTICASONE-SALMETEROL 65742457042 No Longer Active Todd Callaway MD Active ONDANSETRON 4 MG ORAL TABLET DISINTEGRATING 1 q4h PRN nausea ONDANSETRON 37694325726 No Longer Active LONNIE Iglesias Active FISH OIL 1000 MG ORAL CAPSULE 3 pills daily OMEGA-3 FATTY ACIDS 06958284291 No Longer Active LONNIE Iglesias Active CETIRIZINE HCL 10 MG ORAL TABLET 1 po qd PRN Allergies CETIRIZINE HCL 84518348738 Active Gab Padron MD Active CLARITIN 10 MG ORAL TABLET 1 tablet by mouth daily as needed for allergies LORATADINE 32610709108 No Longer Active Gab Padron MD Active PREDNISONE 20 MG ORAL TABLET take 3 tabs daily for 3 days, 2 tabs daily for 3 days, 1 tab daily for 3 days, 1/2 tab daily for 3 days PREDNISONE 42770593272 No Longer Active Tisha Lambert APRN Active PREDNISONE 20 MG ORAL TABLET 2 tabs daily for 3 days, 1 tab daily for 3 days, 1/2 tab daily for 2 days PREDNISONE 78708932427 No Longer Active Gab Padron MD Active ZOFRAN ODT 4 MG ORAL TABLET DISINTEGRATING 1 po q6hr PRN Nausea ONDANSETRON 05910367265 Active Gab Padron MD Active BACTRIM DS 800-160 MG ORAL TABLET 1 tab by mouth twice daily 2015 TRIMETHOPRIM-SULFAMETHOXAZOLE 71773410317 No Longer Active Gab Padron MD Active LEVOTHYROXINE SODIUM 75 MCG ORAL TABLET Take 1 tab daily LEVOTHYROXINE SODIUM 96941709123 No Longer Active Mariana Cuadra LONNIE Active SYNTHROID 88 MCG ORAL TABLET Take one by mouth daily LEVOTHYROXINE SODIUM 60275985559 Active Tisha Lambert APRN Active CHERATUSSIN AC 100-10 MG/5ML ORAL SYRUP 1 tsp by mouth every 4 hours as needed for cough GUAIFENESIN-CODEINE 82501107092 No Longer Active Gab Padron MD Active POLYTRIM 39631-6.1 UNIT/ML-% OPHTHALMIC SOLUTION 1 gtt to affected eye q3h x 7 days POLYMYXIN B-TRIMETHOPRIM 18112555477 No Longer Active Gab Padron MD Active FLUTICASONE PROPIONATE 50 MCG/ACT NASAL SUSPENSION 1 to 2 sprays each nostril daily FLUTICASONE PROPIONATE 11369472958 No Longer Active Gab Padron MD Active TRILEPTAL 600 MG ORAL TABLET Take one 1 tablet in Am and 1 tablet at night OXCARBAZEPINE 88374294518 Active Gab Padron MD Active CEFDINIR 300 MG ORAL CAPSULE 1 po BID x 10 days CEFDINIR 54532683955 No Longer Active Rodrigo Sarah APRN Active CEFTIN 500 MG ORAL TABLET 1 twice a day CEFUROXIME AXETIL 44426464863 No Longer Active Gab Padron MD Active AZITHROMYCIN 250 MG ORAL TABLET 2 po qd x 1 day, then 1 po qd x 4 days 03/11 AZITHROMYCIN 31585629336 No Longer Active Rodrigo Sarah APRN Active OXYCODONE HCL 5 MG ORAL CAPSULE 1 TAB PO Q HS OXYCODONE HCL 94322991960 No Longer Active Rodrigo Sarah APRN Active NIASPAN 500 MG ORAL TABLET EXTENDED RELEASE 1 pill nightly x 1 week, then 2 pills nightly x 1 week, then 3 pills nightly x 1 week, then 4 pills nightly NIACIN (ANTIHYPERLIPIDEMIC) 62052977779 No Longer Active Rodrigo Sarah APRN Active NIACIN 500 MG ORAL TABLET 1 pill by mouth nightly x 1 week, then 2 pills x 1 week, then 3 pills x 1 week, then 4 pills nightly - take after evening meal, with applesauce or an apple NIACIN 50149025119 No Longer Active Yolande Lindsay MD PhD Active FUROSEMIDE 20 MG ORAL TABLET 1 tablet by mouth daily FUROSEMIDE 44826924623 Active Gab Padron MD Active FUROSEMIDE 20 MG ORAL TABLET 1 pill by mouth daily, for edema FUROSEMIDE 27214743637 No Longer Active Yolande Lindsay MD PhD Active ATORVASTATIN CALCIUM 10 MG ORAL TABLET 1 pill by mouth daily, for cholesterol ATORVASTATIN CALCIUM 27985297633 Active Gab Padron MD Active CALCIUM 600+D PLUS MINERALS 600-400 MG-UNIT ORAL TABLET CHEWABLE 1 tab by mouth daily CALCIUM CARBONATE-VIT D-MIN 57937467296 No Longer Active Yolande Lindsay MD PhD Active CYCLOBENZAPRINE HCL 10 MG ORAL TABLET 1 tablet by mouth three times daily as needed for muscle spasm/pain CYCLOBENZAPRINE HCL 30753131935 Active Yolande Lindsay MD PhD Active ADULT ASPIRIN EC LOW STRENGTH 81 MG ORAL TABLET DELAYED RELEASE Take 1 tablet by mouth daily ASPIRIN 47648500412 No Longer Active Yolande Lindsay MD PhD Active ZOFRAN ODT 4 MG ORAL TABLET DISINTEGRATING 1 pill dissolved by mouth every 4 hours if needed for nausea ONDANSETRON 57052492678 No Longer Active Yolande Lindsay MD PhD Active CEFTIN 500 MG ORAL TABLET 1 twice a day CEFUROXIME AXETIL 52817422931 No Longer Active Yolande Lindsay MD PhD Active ALBUTEROL SULFATE (2.5 MG/3ML) 0.083% INHALATION NEBULIZATION SOLUTION one vial per nebulizer every 4-6 hours as needed ALBUTEROL SULFATE 94732430840 No Longer Active Alexis Ordaz MD Active DOXYCYCLINE HYCLATE 100 MG ORAL CAPSULE 1 cap by mouth twice daily DOXYCYCLINE HYCLATE 20089209038 No Longer Active Yolande Lindsay MD PhD Active CYCLOBENZAPRINE HCL 10 MG ORAL TABLET 1/2 - 1 tab by mouth three times daily if needed for spasms/pain CYCLOBENZAPRINE HCL 94052917250 No Longer Active Yolande Lindsay MD PhD Active AZITHROMYCIN 250 MG ORAL TABLET 2 pills on day 1, then 1 pill daily x 4 days AZITHROMYCIN 66136118008 No Longer Active Yolande Lindsay MD PhD Active XOPENEX 1.25 MG/3ML INHALATION NEBULIZATION SOLUTION 1 neb every 4 hours if needed for cough/congestion LEVALBUTEROL HCL 47148868041 No Longer Active Yolande Lindsay MD PhD Active DOXYCYCLINE HYCLATE 100 MG ORAL TABLET 1 tab twice a day for 14 days DOXYCYCLINE HYCLATE 75087642993 No Longer Active Yolande Lindsay MD PhD Active PREVACID 30 MG ORAL CAPSULE DELAYED RELEASE Take 1 tablet by mouth daily-PRN LANSOPRAZOLE 36944271566 No Longer Active Yolande Lindsay MD PhD Active PA VITAMIN D-3 2000 UNIT ORAL CAPSULE 1 CAP PO DAILY CHOLECALCIFEROL 49579427941 No Longer Active Yolande Lindsay MD PhD Active CEFDINIR 300 MG ORAL CAPSULE by mouth twice a day CEFDINIR 75093996083 No Longer Active Gab Padron MD Active TOPAMAX 50 MG ORAL TABLET 1 PO twice daily TOPIRAMATE 74356144162 Active Yolande Lindsay MD PhD Active AZITHROMYCIN 250 MG ORAL TABLET 2 po qd x 1 day, then 1 po qd x 4 days 03/02 AZITHROMYCIN 59211835807 No Longer Active Yolande Lindsay MD PhD Active DICLOFENAC SODIUM 75 MG ORAL TABLET DELAYED RELEASE 1 tablet by q 12 hours PRN headaches DICLOFENAC SODIUM 17402170845 No Longer Active Yolande Lindsay MD PhD Active FLONASE 50 MCG/ACT NASAL SUSPENSION 1 spray each nostril am and hs FLUTICASONE PROPIONATE 75874085202 No Longer Active Todd Callaway MD Active ANUSOL-HC 25 MG RECTAL SUPPOSITORY 1 rectally twice a day as needed for hemorrhoids HYDROCORTISONE JAYDEN (RECTAL) 77245785200 No Longer Active Yolande Lindsay MD PhD Active ANUSOL-HC 25 MG RECTAL SUPPOSITORY 1 suppository rectally each evening as needed for anal fissure HYDROCORTISONE JAYDEN (RECTAL) 68640769921 No Longer Active LONNIE Iglesias Active VALIUM 5 MG ORAL TABLET 1 po 30 minutes prior to your MRI DIAZEPAM 59058069872 No Longer Active LONNIE Iglesias Active METHOCARBAMOL 750 MG ORAL TABLET 1 PO QID PRN METHOCARBAMOL 34039402915 No Longer Active Daphne Wetzel APRN Active NITROSTAT 0.4 MG SUBLINGUAL TABLET SUBLINGUAL as directed NITROGLYCERIN 95079330014 No Longer Active Rodrigo Sarah APRN Active ROBAXIN-750 750 MG ORAL TABLET 2 four times a day for 3 days as needed for muscle spasm, then 1 four times a day as needed METHOCARBAMOL 07975091500 No Longer Active Rodrigo Sarah APRN Active HYDROCODONE-ACETAMINOPHEN 5-325 MG ORAL TABLET 1 q 4-6 hrs prn HYDROCODONE-ACETAMINOPHEN 14182835683 No Longer Active Rodrigo Sarah APRN Active VERAPAMIL HCL ER 180 MG ORAL TABLET EXTENDED RELEASE TAKE 1 TAB DAILY VERAPAMIL HCL 77011060136 No Longer Active Yolande Lindsay MD PhD Active BACTRIM DS 800-160 MG ORAL TABLET 1 tab by mouth twice daily 2010 TRIMETHOPRIM-SULFAMETHOXAZOLE 60565375350 No Longer Active Yolande Lindsay MD PhD Active NEXIUM 40 MG ORAL PACKET 1 by mouth daily ESOMEPRAZOLE MAGNESIUM 74901820840 No Longer Active Des Hines MD Active EPIPEN 2-CHARLETTE 0.3 MG/0.3ML INJECTION SOLUTION AUTO-INJECTOR as need for allergic reaction EPINEPHRINE 72024481736 Active Yolande Lindsay MD PhD Active NEXIUM 40 MG ORAL CAPSULE DELAYED RELEASE 1 PO Q D DAY ESOMEPRAZOLE MAGNESIUM 53650801430 No Longer Active Sadia Perry RN Active NEXIUM 40 MG ORAL PACKET 1 by mouth daily NEXIUM 40 MG ORAL PACKET ESOMEPRAZOLE MAGNESIUM Inactive VERAPAMIL HCL ER 180 MG ORAL TABLET EXTENDED RELEASE TAKE 1 TAB DAILY VERAPAMIL HCL ER 180 MG ORAL TABLET EXTENDED RELEASE VERAPAMIL HCL Inactive HYDROCODONE-ACETAMINOPHEN 5-325 MG ORAL TABLET 1 q 4-6 hrs prn HYDROCODONE-ACETAMINOPHEN 5-325 MG ORAL TABLET 179913 HYDROCODONE- ACETAMINOPHEN Inactive ROBAXIN-750 750 MG ORAL TABLET 2 four times a day for 3 days as needed for muscle spasm, then 1 four times a day as needed ROBAXIN -750 750 MG ORAL TABLET 486019 METHOCARBAMOL Inactive NITROSTAT 0.4 MG SUBLINGUAL TABLET SUBLINGUAL as directed NITROSTAT 0.4 MG SUBLINGUAL TABLET SUBLINGUAL 212986 NITROGLYCERIN Inactive METHOCARBAMOL 750 MG ORAL TABLET 1 PO QID PRN METHOCARBAMOL 750 MG ORAL TABLET 681085 METHOCARBAMOL Inactive VALIUM 5 MG ORAL TABLET 1 po 30 minutes prior to your MRI VALIUM 5 MG ORAL TABLET 828536 DIAZEPAM Inactive ANUSOL-HC 25 MG RECTAL SUPPOSITORY 1 suppository rectally each evening as needed for anal fissure ANUSOL-HC 25 MG RECTAL SUPPOSITORY 6884407 HYDROCORTISONE JAYDEN (RECTAL) Inactive ANUSOL-HC 25 MG RECTAL SUPPOSITORY 1 rectally twice a day as needed for hemorrhoids ANUSOL-HC 25 MG RECTAL SUPPOSITORY 8621849 HYDROCORTISONE JAYDEN (RECTAL) Inactive FLONASE 50 MCG/ACT NASAL SUSPENSION 1 spray each nostril am and hs FLONASE 50 MCG/ACT NASAL SUSPENSION 4504746 FLUTICASONE PROPIONATE Inactive DICLOFENAC SODIUM 75 MG ORAL TABLET DELAYED RELEASE 1 tablet by q 12 hours PRN headaches DICLOFENAC SODIUM 75 MG ORAL TABLET DELAYED RELEASE 745798 DICLOFENAC SODIUM Inactive PA VITAMIN D-3 2000 UNIT ORAL CAPSULE 1 CAP PO DAILY PA VITAMIN D-3 2000 UNIT ORAL CAPSULE CHOLECALCIFEROL Inactive PREVACID 30 MG ORAL CAPSULE DELAYED RELEASE Take 1 tablet by mouth daily-PRN PREVACID 30 MG ORAL CAPSULE DELAYED RELEASE 165222 LANSOPRAZOLE Inactive DOXYCYCLINE HYCLATE 100 MG ORAL TABLET 1 tab twice a day for 14 days DOXYCYCLINE HYCLATE 100 MG ORAL TABLET 1720590 DOXYCYCLINE HYCLATE Inactive XOPENEX 1.25 MG/3ML INHALATION NEBULIZATION SOLUTION 1 neb every 4 hours if needed for cough/congestion XOPENEX 1.25 MG/3ML INHALATION NEBULIZATION SOLUTION 729505 LEVALBUTEROL HCL Inactive CYCLOBENZAPRINE HCL 10 MG ORAL TABLET 1/2 - 1 tab by mouth three times daily if needed for spasms/pain CYCLOBENZAPRINE HCL 10 MG ORAL TABLET 387550 CYCLOBENZAPRINE HCL Inactive ALBUTEROL SULFATE (2.5 MG/3ML) 0.083% INHALATION NEBULIZATION SOLUTION one vial per nebulizer every 4-6 hours as needed ALBUTEROL SULFATE ( 2.5 MG/3ML) 0.083% INHALATION NEBULIZATION SOLUTION 708259 ALBUTEROL SULFATE Inactive CEFTIN 500 MG ORAL TABLET 1 twice a day CEFTIN 500 MG ORAL TABLET 016052 CEFUROXIME AXETIL Inactive ZOFRAN ODT 4 MG ORAL TABLET DISINTEGRATING 1 pill dissolved by mouth every 4 hours if needed for nausea ZOFRAN ODT 4 MG ORAL TABLET DISINTEGRATING 549685 ONDANSETRON Inactive ADULT ASPIRIN EC LOW STRENGTH 81 MG ORAL TABLET DELAYED RELEASE Take 1 tablet by mouth daily ADULT ASPIRIN EC LOW STRENGTH 81 MG ORAL TABLET DELAYED RELEASE 502522 ASPIRIN Inactive CALCIUM 600+D PLUS MINERALS 600-400 MG-UNIT ORAL TABLET CHEWABLE 1 tab by mouth daily CALCIUM 600+D PLUS MINERALS 600-400 MG- UNIT ORAL TABLET CHEWABLE CALCIUM CARBONATE-VIT D-MIN Inactive NIACIN 500 MG ORAL TABLET 1 pill by mouth nightly x 1 week, then 2 pills x 1 week, then 3 pills x 1 week, then 4 pills nightly - take after evening meal, with applesauce or an apple NIACIN 500 MG ORAL TABLET 663610 NIACIN Inactive NIASPAN 500 MG ORAL TABLET EXTENDED RELEASE 1 pill nightly x 1 week, then 2 pills nightly x 1 week, then 3 pills nightly x 1 week, then 4 pills nightly NIASPAN 500 MG ORAL TABLET EXTENDED RELEASE NIACIN ( ANTIHYPERLIPIDEMIC) Inactive OXYCODONE HCL 5 MG ORAL CAPSULE 1 TAB PO Q HS OXYCODONE HCL 5 MG ORAL CAPSULE 9428985 OXYCODONE HCL Inactive FLUTICASONE PROPIONATE 50 MCG/ACT NASAL SUSPENSION 1 to 2 sprays each nostril daily FLUTICASONE PROPIONATE 50 MCG/ACT NASAL SUSPENSION 8595148 FLUTICASONE PROPIONATE Inactive POLYTRIM 29321-0.1 UNIT/ML-% OPHTHALMIC SOLUTION 1 gtt to affected eye q3h x 7 days POLYTRIM 31283-2.1 UNIT/ML-% OPHTHALMIC SOLUTION 154908 POLYMYXIN B-TRIMETHOPRIM Inactive CHERATUSSIN AC 100-10 MG/5ML ORAL SYRUP 1 tsp by mouth every 4 hours as needed for cough CHERATUSSIN AC 100-10 MG/5ML ORAL SYRUP 447697 GUAIFENESIN-CODEINE Inactive LEVOTHYROXINE SODIUM 75 MCG ORAL TABLET Take 1 tab daily LEVOTHYROXINE SODIUM 75 MCG ORAL TABLET 676237 LEVOTHYROXINE SODIUM Inactive CLARITIN 10 MG ORAL TABLET 1 tablet by mouth daily as needed for allergies CLARITIN 10 MG ORAL TABLET 204965 LORATADINE Inactive FISH OIL 1000 MG ORAL CAPSULE 3 pills daily FISH OIL 1000 MG ORAL CAPSULE OMEGA-3 FATTY ACIDS Inactive ONDANSETRON 4 MG ORAL TABLET DISINTEGRATING 1 q4h PRN nausea ONDANSETRON 4 MG ORAL TABLET DISINTEGRATING 138339 ONDANSETRON Inactive ADVAIR DISKUS 250-50 MCG/DOSE INHALATION AEROSOL POWDER BREATH ACTIVATED 1 puff BID ADVAIR DISKUS 250-50 MCG/DOSE INHALATION AEROSOL POWDER BREATH ACTIVATED FLUTICASONE-SALMETEROL Inactive TRAMADOL HCL 50 MG ORAL TABLET 1 tab po every 6 hrs prn pain 2016 TRAMADOL HCL 50 MG ORAL TABLET 690555 TRAMADOL HCL Inactive TRIAMCINOLONE ACETONIDE 0.1 % EXTERNAL CREAM apply bid sparingly to rash 2014 TRIAMCINOLONE ACETONIDE 0.1 % EXTERNAL CREAM 8140527 TRIAMCINOLONE ACETONIDE Inactive PREDNISONE 20 MG ORAL TABLET 1 tab twice daily for 3 day, then one daily for three days PREDNISONE 20 MG ORAL TABLET 827129 PREDNISONE Inactive IBUPROFEN 600 MG ORAL TABLET 1 tablet by mouth every 6 hours for 7 days, then 1 tablet every 6 hours as needed. Take with food IBUPROFEN 600 MG ORAL TABLET 915549 IBUPROFEN Inactive BACTRIM DS 800-160 MG ORAL TABLET 1 tab by mouth twice daily 2010 BACTRIM DS 800-160 MG ORAL TABLET 045775 TRIMETHOPRIM- SULFAMETHOXAZOLE Inactive AZITHROMYCIN 250 MG ORAL TABLET 2 po qd x 1 day, then 1 po qd x 4 days 03/02 AZITHROMYCIN 250 MG ORAL TABLET 529607 AZITHROMYCIN Inactive CEFDINIR 300 MG ORAL CAPSULE by mouth twice a day CEFDINIR 300 MG ORAL CAPSULE 239625 CEFDINIR Inactive AZITHROMYCIN 250 MG ORAL TABLET 2 pills on day 1, then 1 pill daily x 4 days AZITHROMYCIN 250 MG ORAL TABLET 008289 AZITHROMYCIN Inactive DOXYCYCLINE HYCLATE 100 MG ORAL CAPSULE 1 cap by mouth twice daily DOXYCYCLINE HYCLATE 100 MG ORAL CAPSULE 7919244 DOXYCYCLINE HYCLATE Inactive FUROSEMIDE 20 MG ORAL TABLET 1 pill by mouth daily, for edema FUROSEMIDE 20 MG ORAL TABLET 597418 FUROSEMIDE Inactive AZITHROMYCIN 250 MG ORAL TABLET 2 po qd x 1 day, then 1 po qd x 4 days 03/11 AZITHROMYCIN 250 MG ORAL TABLET 360819 AZITHROMYCIN Inactive CEFTIN 500 MG ORAL TABLET 1 twice a day CEFTIN 500 MG ORAL TABLET 895957 CEFUROXIME AXETIL Inactive CEFDINIR 300 MG ORAL CAPSULE 1 po BID x 10 days CEFDINIR 300 MG ORAL CAPSULE 524753 CEFDINIR Inactive BACTRIM DS 800-160 MG ORAL TABLET 1 tab by mouth twice daily 2015 BACTRIM DS 800-160 MG ORAL TABLET 597897 TRIMETHOPRIM- SULFAMETHOXAZOLE Inactive PREDNISONE 20 MG ORAL TABLET 2 tabs daily for 3 days, 1 tab daily for 3 days, 1/2 tab daily for 2 days PREDNISONE 20 MG ORAL TABLET 659303 PREDNISONE Inactive PREDNISONE 20 MG ORAL TABLET take 3 tabs daily for 3 days, 2 tabs daily for 3 days, 1 tab daily for 3 days, 1/2 tab daily for 3 days PREDNISONE 20 MG ORAL TABLET 607553 PREDNISONE Inactive BACTRIM DS 800-160 MG ORAL TABLET 1 tab by mouth twice daily 2016 BACTRIM DS 800-160 MG ORAL TABLET 007514 TRIMETHOPRIM- SULFAMETHOXAZOLE Inactive PREDNISONE 20 MG ORAL TABLET 2 tabs daily for 3 days, 1 tab daily for 3 days, 1/2 tab daily for 2 days end 02/05/17 PREDNISONE 20 MG ORAL TABLET 335201 PREDNISONE Inactive Immunizations Vaccine Administration Date Value Standard Description Seasonal influenza vaccine, injectable, containing preservative, for > 3 years old (Afluria, FluLaval, Fluzone, Fluvirin, Fluarix, Agriflu(>=18 yo)) Fluzone (>3 yrs.) [XRO987] Influenza, seasonal, injectable influenza immunization (Flu Vax) has been administered Influenza - Unspecified Formulation [CVX88] influenza virus vaccine, unspecified formulation Seasonal influenza vaccine, injectable, containing preservative, for > 3 years old (Afluria, FluLaval, Fluzone, Fluvirin, Fluarix, Agriflu(>=18 yo)) Fluzone (>3 yrs.) [LDE927] Influenza, seasonal, injectable pneumococcal immunization administered Pneumovax 23 [CVX33] pneumococcal polysaccharide vaccine, 23 valent dT (Diphtheria and Tetanus) booster given given Td(adult) unspecified formulation Boostrix (Tetanus toxoid, reduced diphtheria toxoid and acellular pertussis vaccine, adsorbed), booster Boostrix [IER982] tetanus toxoid, reduced diphtheria toxoid, and acellular [...] PANEL - Chemistry cholesterol, serum 166 mg/dL 181-638 6784/12/06 triglyceride, serum, fasting 86 mg/dL 30-200 HDL [...] negative Encounters Code Encounter Date Provider Facility CPT-82587 Level 3 Est. Patient 17:32:14 CDT Gab Padron MD [facility] CPT-74307 Level 3 Est. Patient 10:28:15 CDT Tisha Lambert [facility] CPT-62351 Level 3 Est. Patient 14:50:29 CDT Gab Padron MD [facility] CPT-54269 Level 3 Est. Patient 14:46:09 CDT Tisha Lambert [facility] CPT-62809 Level 4 New Patient 16:13:15 CDT Todd Callaway MD [facility] CPT-18656 Level 4 Est. Patient 13:18:33 CDT Gab Padron MD [facility] CPT-18262 Level 3 Est. Patient 15:20:50 CDT Jared Og MD [facility] CPT-12657 Level 3 Est. Patient 17:43:55 [employer] Gab Padron MD [facility] CPT-28600 Level 3 Est. Patient 17:07:49 [employer] Jared Og MD [facility] CPT-49868 Level 4 Est. Patient 19:55:18 [employer] Jared Og MD [facility] CPT-35198 Level 3 Est. Patient 20:13:34 [employer] Jared Og MD [facility] CPT-65342 Level 4 Est. Patient 16:31:27 CDT Gab Padron MD [facility] CPT-21604 Level 2 Est. Patient 12:23:38 CDT Jared Og MD [facility] CPT-65376 Level 3 Est. Patient 11:01:51 CDT Gab Padron MD [facility] CPT-26282 Level 3 Est. Patient 15:27:02 CDT Jared Og MD [facility] CPT-19054 Level 4 Est. Patient 09:25:27 CDT Gab Padron MD [facility] CPT-25645 Level 3 Est. Patient 10:29:41 CDT Rodrigo Sarah [facility] CPT-03157 Level 4 Est. Patient 17:51:05 CDT Gab Padron MD [facility] CPT-17973 Level 3 Est. Patient 14:18:08 CDT Gab Padron MD [facility] CPT-98765 Level 4 Est. Patient 10:18:54 CDT Gab Padron MD [facility] CPT-18793 Level 3 Est. Patient 11:30:07 CDT Rodrigo Sarah [facility] CPT-97305 Level 4 Est. Patient 21:02:30 [employer] Gab Padron MD [facility] CPT-42709 Level 3 Est. Patient 11:02:19 [employer] Gab Padron MD [facility] CPT-00735 Level 4 Est. Patient 22:24:31 [employer] Gab Padron MD [facility] CPT-18692 Level 3 Est. Patient 18:33:46 [employer] Gab Padron MD [facility] CPT-00038 Level 3 Est. Patient 16:19:11 CDT Yolande Lindsay MD [facility]-51120 Level 3 Est. Patient 18:59:14 CDT Yolande Lindsay MD [facility]-71138 Level 4 Est. Patient 21:29:26 CDT Yolande Lindsay MD [facility]-67869 Level 3 Est. Patient 07:37:45 CDT Yolande Lindsay MD [facility]-99659 Level 3 Est. Patient 17:03:46 CDT Yolande Lindsay MD [facility]-55529 Level 4 Est. Patient 20:02:13 [employer] Yolande Lindsay MD [facility]-18242 Level 3 Est. Patient 16:02:07 [employer] Alexis Ordaz MD [facility]-60063 Level 3 Est. Patient 12:41:24 [employer] Yolande Lindsay MD [facility]-46663 Level 3 Est. Patient 15:41:20 [employer] Yolande Lindsay MD [facility]-14484 Level 3 Est. Patient 13:20:02 [employer] Yolande Lindsay MD [facility]-34808 Level 3 Est. Patient 15:00:38 CDT Jared Og MD [facility]-64818 Level 3 Est. Patient 10:22:32 CDT Yolande Lindsay MD [facility]-49769 Level 3 Est. Patient 17:12:58 CDT Yolande Lindsay MD [facility]-83373 Level 4 Est. Patient 13:30:58 CDT Yolande Lindsay MD [facility]-43832 Level 4 New Patient 09:02:42 CDT Jared Og MD [facility]-30241 Level 3 Est. Patient 08:19:07 CDT Yolande Lindsay MD [facility]-20365 Level 3 Est. Patient 12:00:13 [employer] Gab Padron MD [facility]-50634 Level 3 Est. Patient 16:15:23 [employer] Yolande Lindsay MD [facility]-30443 Level 2 Est. Patient 19:47:15 CDT Yolande Lindsay MD [facility]-98031 Level 3 Est. Patient 21:38:31 CDT Yolande Lindsay MD [facility]-45797 Level 3 Est. Patient 10:25:12 CDT Adiel PERAZA [facility]-17423 Level 4 Est. Patient 10:51:58 CDT Yolande Lindsay MD [facility] CPT-48694 Level 3 Est. Patient 14:04:55 [employer] Rodrigo Sarah [facility]-34495 Level 3 Est. Patient 10:46:35 [employer] Rodrigo Sarah [facility] CPT-40418 Level 3 Est. Patient 14:24:37 [employer] Yolande Lindsay MD [facility]-67531 Level 3 Est. Patient 17:41:58 [employer] Yolande Lindsay MD [facility]-67312 Level 2 Est. Patient 22:01:41 [employer] Rodrigo Sarah [facility]-99418 Level 2 Est. Patient 22:01:11 [employer] Rodrigo Sarah [facility]-86243 Level 3 Est. Patient 10:12:29 [employer] Rodrigo Sarah APRN [facility] CPT-54682 Level 3 Est. Patient 11:05:44 CDT Alexis Ordaz MD [facility] CPT-92736 Level 3 Est. Patient 14:57:20 CDT Yolande Lindsay MD [facility] CPT-82965 Level 3 Est. Patient 14:40:57 CDT Yolande Lindsay MD [facility] CPT-60106 Level 3 Est. Patient 20:55:40 CDT Yolande Lindsay MD [facility] CPT-43719 Level 3 Est. Patient 12:42:38 [employer] Yolande Lindsay MD [facility] CPT-56482 Level 3 Est. Patient 11:54:49 [employer] Des Hines MD [facility] CPT-03438 Level 3 Est. Patient 17:06:38 CDT Dewayne PERAZA [facility] Procedures Code Procedure Name Date Entry Date Standard Description CPT-74877 First Vx - Ix admin via ID IM or jet injects without counseling by physician 13:08:42 [employer] CPT-26968 Fluzone Quadrivalent Intramuscular Suspension 0.5 ML 13: 08:42 [employer] CPT-J2930 Solu Medrol 125 mg (Methyl Prednisolone Sodium Succinate) 13:19:02 CDT CPT-88101 Abx/Therapy Injection 13:19:02 CDT CPT-J2930 Solu Medrol 125 mg (Methyl Prednisolone Sodium Succinate) 13:05:03 CDT CPT-42690 Hip, complete, 2-3 views - XRAY USE ONLY 17:19:04 [employer] CPT-96021 Venipuncture Draw Fee 08:37:59 [employer] CPT-94480 Liver Profile - LAB USE ONLY 08:37:59 [employer] CPT-62596 Lipid - LAB USE ONLY 08:37:58 [employer] CPT-93248 First Vx - Ix admin via ID IM or jet injects without counseling by physician 11:52:31 CDT CPT-24446 Fluzone Preservative Free Intramuscular Suspension 11:52 :31 CDT CPT-46141 Foot, left, comp min 3V - XRAY USE ONLY 09:24:54 CDT CPT-74984 Abd single AP View - XRAY USE ONLY 11:16:17 CDT CPT-42828 T spine AP/ Lat - XRAY USE ONLY 09:34:21 CDT CPT-39421 Chest 2V Frontal and Lat - XRAY USE ONLY 10:48:51 CDT CPT-20854 LS spine comp w obliq 13:28:00 [employer] CPT-J1040 Depo Medrol 80 mg (Methyl Prednisolone Acetate) 10:51: 28 [employer] CPT-J1100 Decadron 8mg (Dexamethasone) 10:51:28 [employer] CPT-36297 Abx/Therapy Injection 10:51:28 [employer] CPT-J1100 Decadron 8mg (Dexamethasone) 21:02:30 [employer] CPT-J1040 Depo Medrol 80 mg (Methyl Prednisolone Acetate) 21:02: 30 [employer] [id number] Event Monitor - MC Transmission 09:12:32 CDT 08/06 [id number] Event Monitor - MC review and interp 09:12:32 CDT [id number] Event Monitor - MC recording 09:12:32 CDT CPT-70666 EKG Trac and Interp 16:50:22 CDT CPT-J1030 Depo Medrol 40 mg (Methyl Prednisolone Acetate) 17:05: 54 CDT CPT-J1100 Decadron 4mg (Dexamethasone) 17:05:54 CDT CPT-94310 Abx/Therapy Injection 17:05:54 CDT CPT-J1100 Decadron 4mg (Dexamethasone) 16:55:28 CDT CPT-J1030 Depo Medrol 40 mg (Methyl Prednisolone Acetate) 16:55: 28 CDT CPT-50777 Ankle Complete - Min 3V 15:58:50 CDT CPT-69346 Knee 3V 15:58:50 CDT CPT-46473 Hip comp min 2V 15:58:50 CDT CPT-J2270 Morphine Sulfate 10 mg 14:25:44 [employer] CPT-J2550 Phenergan 12.5 mg (Promethazine) 14:25:44 [employer] CPT-18709 Abx/Therapy Injection 14:25:44 [employer] CPT-J2550 Phenergan 12.5 mg (Promethazine) 14:08:03 [employer] CPT-J2270 Morphine Sulfate 10 mg 14:08:03 [employer] CPT-86338 Bladder Scan 15:00:38 CDT CPT-TCMM Transitional Care Mgmt-Moderate 09:52:22 CDT CPT-J1030 Depo Medrol 40 mg (Methyl Prednisolone Acetate) 10:55: 18 CDT CPT-J1100 Decadron 4mg (Dexamethasone) 10:55:18 CDT CPT-27513 Abx/Therapy Injection 10:55:18 CDT CPT-J1030 Depo Medrol 40 mg (Methyl Prednisolone Acetate) 10:22: 32 CDT CPT-J1100 Decadron 4mg (Dexamethasone) 10:22:32 CDT CPT-62005 Postop F/U Visit 14:37:13 CDT CPT-56761 Ankle Complete - Min 3V 17:11:58 CDT CPT-18428 Foot comp min 3V 17:11:58 CDT CPT-40728 Bladder Scan 09:56:58 CDT CPT-85726 Postop F/U Visit 09:56:58 CDT CPT-79883 Cystoscopy 09:02:42 CDT CPT-91635 Bladder Scan 09:02:42 CDT CPT-03445 Abd single AP View 16:00:35 CDT CPT-00069 Administration single or combination vaccine inc oral 10 :15:43 CDT CPT-74791 Influenza split virus > age 3 10:15:43 CDT CPT-59651 Nail Avulsion 09:24:57 CDT CPT-OV Office Visit 11:15:41 CDT CPT-08741 Abx/Therapy Injection 10:51:30 CDT CPT-J3301 Kenalog 40 mg (Triamcinolone Acetonide) 10:25:12 CDT CPT-J1100 Decadron 4mg (Dexamethasone) 10:25:12 CDT CPT-92241 Anoscopy diagnostic 10:36:12 CDT CPT-OV Office Visit 15:34:31 CDT CPT-08633 Abx/Therapy Injection 08:21:15 [employer] CPT-J1885 Toradol 60 mg (Ketorolac) 10:46:35 [employer] CPT-OV Office Visit 19:51:16 [employer] CPT-87732 Spec Collection and Handling Fee 14:34:18 [employer] CPT-PV Prev. Care Visit 14:19:18 [employer] CPT-49723 Postop F/U Visit 14:47:51 [employer] CPT-51283 Postop F/U Visit 15:15:14 [employer] CPT-71573 Postop F/U Visit 14:41:43 CDT CPT-98774 Postop F/U Visit 15:47:46 CDT CPT-OV Office Visit 15:27:23 CDT CPT-OV Office Visit 17:20:34 CDT CPT-95610 Abx/Therapy Injection 15:05:57 CDT CPT-J1100 Decadron 8mg (Dexamethasone) 14:44:57 CDT CPT-J1040 Depo Medrol 80 mg (Methyl Prednisolone Acetate) 14:44: 57 CDT CPT-JTINJ Joint Injection 10:17:37 CDT CPT-59901 Administration 2+ single or combination vaccines inc oral 13:01:46 [employer] CPT-43954 Administration single or combination vaccine inc oral 13 :01:46 [employer] CPT-28613 Pneumovax 13:01:46 [employer] CPT-85064 Influenza split virus > age 3 13:01:46 [employer] CPT-63880 Administration single or combination vaccine inc oral 08 :56:49 CDT CPT-72734 Tdap 08:56:49 CDT
--- OUTSIDE RECORDS SUMMARY | 2017-03-21 22:48 | XMS REPORT | Clinical Summary ---
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 CHLORHEXIDINE GLUCONATE tongue and gums swollen Critical Active Hoa Kabaford [facility] NORFLEX Rash Critical Active Silvestrellina Frazell [employer]PER G[employer] OPERATOR TRAZODONE HCL sees things Critical Active [...] facility Ankle pain, right 719.47 Resolved Yolande Lnidsay MD PhD Pain in joint involving ankle [...] of 412 Active Hoa Otto [facility] Old myocardial infarction Pelvic pain 789.09 Resolved [...] 1 tab by mouth twice daily TRIMETHOPRIM-SULFAMETHOXAZOLE 02280035963 No Longer Active Tisha Lambert APRN Active ADVAIR DISKUS 250-50 MCG/DOSE AEPB 1 puff BID FLUTICASONE-SALMETEROL 60191113008 No Longer Active Todd Callaway MD Active ONDANSETRON 4 MG TBDP 1 q4h PRN nausea ONDANSETRON 43082700465 No Longer Active LONNIE Iglesias Active FISH OIL 1000 MG CAPS 3 pills daily OMEGA-3 FATTY ACIDS 67778964973 No Longer Active LONNIE Iglesias Active CETIRIZINE HCL 10 MG ORAL TABS 1 po qd PRN Allergies CETIRIZINE HCL 26713475815 Active Gab Padron MD Active CLARITIN 10 MG TAB 1 tablet by mouth daily as needed for allergies LORATADINE 92326237048 No Longer Active Gab Padron MD Active PREDNISONE 20 MG TAB take 3 tabs daily for 3 days, 2 tabs daily for 3 days, 1 tab daily for 3 days, 1/2 tab daily for 3 days PREDNISONE 94651299322 No Longer Active Tisha Lambert APRN Active TRAMADOL HCL 50 MG TABS 1 tab po every 6 hrs prn pain TRAMADOL HCL 22346749170 Active Gab Padron MD Active PREDNISONE 20 MG TAB 2 tabs daily for 3 days, 1 tab daily for 3 days, 1/2 tab daily for 2 days PREDNISONE 81490933514 No Longer Active Gab Padron MD Active ZOFRAN ODT 4 MG TBDP 1 po q6hr PRN Nausea ONDANSETRON 83941382483 Active Gab Padron MD Active IBUPROFEN 600 MG TAB 1 tablet by mouth every 6 hours for 7 days, then 1 tablet every 6 hours as needed. Take with food IBUPROFEN 05680103983 Active Rodrigo Sarah APRN Active BACTRIM DS 800-160 MG TAB 1 tab by mouth twice daily TRIMETHOPRIM-SULFAMETHOXAZOLE 30713819660 No Longer Active Gab Padron MD Active LEVOTHYROXINE SODIUM 75 MCG TABS Take 1 tab daily LEVOTHYROXINE SODIUM 89433805581 No Longer Active Mariana Cuadra [facility] Active SYNTHROID 88 MCG ORAL TABS Take one by mouth daily LEVOTHYROXINE SODIUM 33583460843 Active Gab Padron MD Active CHERATUSSIN AC 100-10 MG/5ML SYRP 1 tsp by mouth every 4 hours as needed for cough GUAIFENESIN-CODEINE 09446913234 No Longer Active Gab Padron MD Active POLYTRIM 78524-3.1 UNIT/ML-% SOLN 1 gtt to affected eye q3h x 7 days POLYMYXIN B-TRIMETHOPRIM 67254177965 No Longer Active Gab Padron MD Active FLUTICASONE PROPIONATE 50 MCG/ACT SUSP 1 to 2 sprays each nostril daily 04/21 FLUTICASONE PROPIONATE 81960028394 No Longer Active Gab Padron MD Active TRILEPTAL 600 MG TABS Take one 1 tablet in Am and 1 tablet at night OXCARBAZEPINE 24418652821 Active Gab Padron MD Active CEFDINIR 300 MG CAPS 1 po BID x 10 days CEFDINIR 63313861785 No Longer Active Rodrigo Sarah APRN Active CEFTIN 500 MG TAB 1 twice a day CEFUROXIME AXETIL 68548811823 No Longer Active Gab Padron MD Active AZITHROMYCIN 250 MG TABS 2 po qd x 1 day, then 1 po qd x 4 days AZITHROMYCIN 20549220723 No Longer Active Rodrigo Sarah APRN Active OXYCODONE HCL 5 MG ORAL CAPS 1 TAB PO Q HS OXYCODONE HCL 29148888099 No Longer Active Rodrigo Sarah APRN Active NIASPAN 500 MG ORAL CR-TABS 1 pill nightly x 1 week, then 2 pills nightly x 1 week, then 3 pills nightly x 1 week, then 4 pills nightly NIACIN (ANTIHYPERLIPIDEMIC) 62547478059 No Longer Active Rodrigo Sarah APRN Active NIACIN 500 MG TABS 1 pill by mouth nightly x 1 week, then 2 pills x 1 week, then 3 pills x 1 week, then 4 pills nightly - take after evening meal, with applesauce or an apple NIACIN 33529655624 No Longer Active Yolande Lindsay MD PhD Active TRIAMCINOLONE ACETONIDE 0.1 % CREA apply bid sparingly to rash TRIAMCINOLONE ACETONIDE 30599863330 Active Yolande Lindsay MD PhD Active FUROSEMIDE 20 MG TAB 1 tablet by mouth daily FUROSEMIDE 41283963018 Active Gab Padron MD Active LISINOPRIL 20 MG ORAL TABS 1 tab by mouth daily LISINOPRIL 89317155025 Active Gab Padron MD Active FUROSEMIDE 20 MG TABS 1 pill by mouth daily, for edema FUROSEMIDE 81320964852 No Longer Active Yolande Lindsay MD PhD Active ATORVASTATIN CALCIUM 10 MG TABS 1 pill by mouth daily, for cholesterol 09/06 ATORVASTATIN CALCIUM 28439627853 Active Gab Padron MD Active CALCIUM 600+D PLUS MINERALS 600-400 MG-UNIT ORAL CHEW 1 tab by mouth daily CALCIUM CARBONATE-VIT D-MIN 43549895794 No Longer Active Yolande Lindsay MD PhD Active CYCLOBENZAPRINE HCL 10 MG TABS 1 tablet by mouth three times daily as needed for muscle spasm/pain CYCLOBENZAPRINE HCL 04914362374 Active Yolande Lindsay MD PhD Active ADULT ASPIRIN EC LOW STRENGTH 81 MG TBEC Take 1 tablet by mouth daily 2014 ASPIRIN 23377910711 No Longer Active Yolande Lindsay MD PhD Active ZOFRAN ODT 4 MG TBDP 1 pill dissolved by mouth every 4 hours if needed for nausea ONDANSETRON 78364216381 No Longer Active Yolande Lindsay MD PhD Active CEFTIN 500 MG TAB 1 twice a day CEFUROXIME AXETIL 03973430320 No Longer Active Yolande Lindsay MD PhD Active ALBUTEROL SULFATE 0.083 % NEBU SOLN one vial per nebulizer every 4-6 hours as needed ALBUTEROL SULFATE 51323223601 No Longer Active Alexis Ordaz MD Active DOXYCYCLINE HYCLATE 100 MG CAP 1 cap by mouth twice daily DOXYCYCLINE HYCLATE 86778761115 No Longer Active Yolande Lindsay MD PhD Active CYCLOBENZAPRINE HCL 10 MG TABS 1/2 - 1 tab by mouth three times daily if needed for spasms/pain CYCLOBENZAPRINE HCL 96040274107 No Longer Active Yolande Lindsay MD PhD Active AZITHROMYCIN 250 MG TABS 2 pills on day 1, then 1 pill daily x 4 days AZITHROMYCIN 55424707615 No Longer Active Yolande Lindsay MD PhD Active XOPENEX 1.25 MG/3ML NEBU 1 neb every 4 hours if needed for cough/congestion LEVALBUTEROL HCL 31882683058 No Longer Active Yolande Lindsay MD PhD Active DOXYCYCLINE HYCLATE 100 MG TAB 1 tab twice a day for 14 days 2013 DOXYCYCLINE HYCLATE 76137110511 No Longer Active Yolande Lindsay MD PhD Active PREVACID 30 MG CPDR Take 1 tablet by mouth daily-PRN LANSOPRAZOLE 64474823479 No Longer Active Yolande Lindsay MD PhD Active PA VITAMIN D-3 2000 UNIT CAPS 1 CAP PO DAILY CHOLECALCIFEROL 15482965216 No Longer Active Yolande Lindsay MD PhD Active CEFDINIR 300 MG CAPS by mouth twice a day CEFDINIR 68893888749 No Longer Active Gab Padron MD Active TOPAMAX 50 MG TABS 1 PO twice daily TOPIRAMATE 16069751681 Active Yolande Lindsay MD PhD Active AZITHROMYCIN 250 MG TABS 2 po qd x 1 day, then 1 po qd x 4 days AZITHROMYCIN 94449037095 No Longer Active Yolande Lindsay MD PhD Active DICLOFENAC SODIUM 75 MG TBEC 1 tablet by q 12 hours PRN headaches DICLOFENAC SODIUM 55543245589 No Longer Active Yolande Lindsay MD PhD Active FLONASE 50 MCG/ACT SUSP 1 spray each nostril am and hs FLUTICASONE PROPIONATE 57609338213 No Longer Active Todd Callaway MD Active ANUSOL-HC 25 MG SUPPOSITORY 1 rectally twice a day as needed for hemorrhoids HYDROCORTISONE JAYDEN (RECTAL) 59299467745 No Longer Active Yolande Lindsay MD PhD Active ANUSOL-HC 25 MG SUPPOSITORY 1 suppository rectally each evening as needed for anal fissure HYDROCORTISONE JAYDEN (RECTAL) 31776973386 No Longer Active LONNIE Iglesias Active VALIUM 5 MG TAB 1 po 30 minutes prior to your MRI DIAZEPAM 80223628992 No Longer Active LONNIE Iglesias Active METHOCARBAMOL 750 MG TABS 1 PO QID PRN METHOCARBAMOL 68898083544 No Longer Active Daphne Wetzel APRN Active NITROSTAT 0.4 MG SUBL as directed NITROGLYCERIN 27724569796 No Longer Active Rodrigo Sarah APRN Active ROBAXIN-750 750 MG TABS 2 four times a day for 3 days as needed for muscle spasm, then 1 four times a day as needed METHOCARBAMOL 48978494316 No Longer Active Rodrigo Sarah APRN Active HYDROCODONE-ACETAMINOPHEN 5-325 MG TABS 1 q 4-6 hrs prn HYDROCODONE-ACETAMINOPHEN 00684184015 No Longer Active Rodrigo Sarah [employer]PER G[employer] OPERATOR Active VERAPAMIL HCL CR 180 MG CR-TABS TAKE 1 TAB DAILY VERAPAMIL HCL 25861460781 No Longer Active Yolande Lindsay MD PhD Active BACTRIM DS 800-160 MG TAB 1 tab by mouth twice daily TRIMETHOPRIM-SULFAMETHOXAZOLE 18444515296 No Longer Active Yolande Lindsay MD PhD Active NEXIUM 40 MG PACK 1 by mouth daily ESOMEPRAZOLE MAGNESIUM 20426997872 No Longer Active Des Hines MD Active EPIPEN 2-CHARLETTE 0.3 MG/0.3ML OMARI as need for allergic reaction EPINEPHRINE 87573944924 Active Yolande Lindsay MD PhD Active NEXIUM 40 MG CPDR 1 PO Q D DAY ESOMEPRAZOLE MAGNESIUM 79907596717 No Longer Active Sadia Perry RN Active NEXIUM 40 MG PACK 1 by mouth daily NEXIUM 40 MG PACK ESOMEPRAZOLE MAGNESIUM Inactive VERAPAMIL HCL CR 180 MG CR-TABS TAKE 1 TAB DAILY VERAPAMIL HCL CR 180 MG CR-TABS VERAPAMIL HCL Inactive HYDROCODONE-ACETAMINOPHEN 5-325 MG TABS 1 q 4-6 hrs prn HYDROCODONE-ACETAMINOPHEN 5-325 MG TABS 283840 HYDROCODONE-ACETAMINOPHEN Inactive ROBAXIN-750 750 MG TABS 2 four times a day for 3 days as needed for muscle spasm, then 1 four times a day as needed ROBAXIN-750 750 MG TABS 791193 METHOCARBAMOL Inactive NITROSTAT 0.4 MG SUBL as directed NITROSTAT 0.4 MG SUBL 294483 NITROGLYCERIN Inactive METHOCARBAMOL 750 MG TABS 1 PO QID PRN METHOCARBAMOL 750 MG TABS 099953 METHOCARBAMOL Inactive VALIUM 5 MG TAB 1 po 30 minutes prior to your MRI VALIUM 5 MG TAB 344772 DIAZEPAM Inactive ANUSOL-HC 25 MG SUPPOSITORY 1 suppository rectally each evening as needed for anal fissure ANUSOL-HC 25 MG SUPPOSITORY 1268539 HYDROCORTISONE JAYDEN (RECTAL) Inactive ANUSOL-HC 25 MG SUPPOSITORY 1 rectally twice a day as needed for hemorrhoids ANUSOL-HC 25 MG SUPPOSITORY 8278573 HYDROCORTISONE JAYDEN (RECTAL) Inactive FLONASE 50 MCG/ACT SUSP 1 spray each nostril am and hs FLONASE 50 MCG/ACT SUSP 4968577 FLUTICASONE PROPIONATE Inactive DICLOFENAC SODIUM 75 MG TBEC 1 tablet by q 12 hours PRN headaches DICLOFENAC SODIUM 75 MG TBEC 078518 DICLOFENAC SODIUM Inactive PA VITAMIN D-3 2000 UNIT CAPS 1 CAP PO DAILY PA VITAMIN D-3 2000 UNIT CAPS CHOLECALCIFEROL Inactive PREVACID 30 MG CPDR Take 1 tablet by mouth daily-PRN PREVACID 30 MG CPDR 817535 LANSOPRAZOLE Inactive DOXYCYCLINE HYCLATE 100 MG TAB 1 tab twice a day for 14 days 2013 DOXYCYCLINE HYCLATE 100 MG TAB 6659271 DOXYCYCLINE HYCLATE Inactive XOPENEX 1.25 MG/3ML NEBU 1 neb every 4 hours if needed for cough/congestion XOPENEX 1.25 MG/3ML NEBU 588002 LEVALBUTEROL HCL Inactive CYCLOBENZAPRINE HCL 10 MG TABS 1/2 - 1 tab by mouth three times daily if needed for spasms/pain CYCLOBENZAPRINE HCL 10 MG TABS 866874 CYCLOBENZAPRINE HCL Inactive ALBUTEROL SULFATE 0.083 % NEBU SOLN one vial per nebulizer every 4-6 hours as needed ALBUTEROL SULFATE 0.083 % NEBU SOLN 881562 ALBUTEROL SULFATE Inactive CEFTIN 500 MG TAB 1 twice a day CEFTIN 500 MG TAB 640584 CEFUROXIME AXETIL Inactive ZOFRAN ODT 4 MG TBDP 1 pill dissolved by mouth every 4 hours if needed for nausea ZOFRAN ODT 4 MG TBDP 219658 ONDANSETRON Inactive ADULT ASPIRIN EC LOW STRENGTH 81 MG TBEC Take 1 tablet by mouth daily 2014 ADULT ASPIRIN EC LOW STRENGTH 81 MG TBEC 373735 ASPIRIN Inactive CALCIUM 600+D PLUS MINERALS 600-400 [...] or an apple NIACIN 500 MG TABS 135154 NIACIN Inactive NIASPAN 500 MG ORAL CR-TABS 1 pill nightly x 1 week, then 2 pills nightly x 1 week, then 3 pills nightly x 1 week, then 4 pills nightly NIASPAN 500 MG ORAL CR-TABS NIACIN (ANTIHYPERLIPIDEMIC) Inactive OXYCODONE HCL 5 MG ORAL CAPS 1 TAB PO Q HS OXYCODONE HCL 5 MG ORAL CAPS 1860506 OXYCODONE HCL Inactive FLUTICASONE PROPIONATE 50 MCG/ACT SUSP 1 to 2 sprays each nostril daily 04/21 FLUTICASONE PROPIONATE 50 MCG/ACT SUSP 2577133 FLUTICASONE PROPIONATE Inactive POLYTRIM 01854-1.1 UNIT/ML-% SOLN 1 gtt to affected eye q3h x 7 days POLYTRIM 27659-4.1 UNIT/ML-% SOLN 718181 POLYMYXIN B- TRIMETHOPRIM Inactive CHERATUSSIN AC 100-10 MG/5ML SYRP 1 tsp by mouth every 4 hours as needed for cough CHERATUSSIN AC 100-10 MG/5ML SYRP 379929 GUAIFENESIN-CODEINE Inactive LEVOTHYROXINE SODIUM 75 MCG TABS Take 1 tab daily LEVOTHYROXINE SODIUM 75 MCG TABS 516107 LEVOTHYROXINE SODIUM Inactive CLARITIN 10 MG TAB 1 tablet by mouth daily as needed for allergies CLARITIN 10 MG TAB 625122 LORATADINE Inactive FISH OIL 1000 MG CAPS 3 pills daily FISH OIL 1000 MG CAPS OMEGA-3 FATTY ACIDS Inactive ONDANSETRON 4 MG TBDP 1 q4h PRN nausea ONDANSETRON 4 MG TBDP 291420 ONDANSETRON Inactive ADVAIR DISKUS 250-50 MCG/DOSE AEPB 1 puff BID ADVAIR DISKUS 250-50 MCG/DOSE AEPB FLUTICASONE-SALMETEROL Inactive BACTRIM DS 800-160 MG TAB 1 tab by mouth twice daily BACTRIM DS 800-160 MG TAB 893389 TRIMETHOPRIM-SULFAMETHOXAZOLE Inactive AZITHROMYCIN 250 MG TABS 2 po qd x 1 day, then 1 po qd x 4 days AZITHROMYCIN 250 MG TABS 5662498 AZITHROMYCIN Inactive CEFDINIR 300 MG CAPS by mouth twice a day CEFDINIR 300 MG CAPS 773086 CEFDINIR Inactive AZITHROMYCIN 250 MG TABS 2 pills on day 1, then 1 pill daily x 4 days AZITHROMYCIN 250 MG TABS 3844452 AZITHROMYCIN Inactive DOXYCYCLINE HYCLATE 100 MG CAP 1 cap by mouth twice daily DOXYCYCLINE HYCLATE 100 MG CAP 5917694 DOXYCYCLINE HYCLATE Inactive FUROSEMIDE 20 MG TABS 1 pill by mouth daily, for edema FUROSEMIDE 20 MG TABS 265434 FUROSEMIDE Inactive AZITHROMYCIN 250 MG TABS 2 po qd x 1 day, then 1 po qd x 4 days AZITHROMYCIN 250 MG TABS 4256535 AZITHROMYCIN Inactive CEFTIN 500 MG TAB 1 twice a day CEFTIN 500 MG TAB 589955 CEFUROXIME AXETIL Inactive CEFDINIR 300 MG CAPS [...] for 2 days PREDNISONE 20 MG TAB 063805 PREDNISONE Inactive PREDNISONE 20 MG TAB take 3 tabs daily for 3 days, 2 tabs daily for 3 days, 1 tab daily for 3 days, 1/2 tab daily for 3 days PREDNISONE 20 MG TAB 571808 PREDNISONE Inactive BACTRIM DS 800-160 MG TAB 1 tab by mouth twice daily BACTRIM DS 800-160 MG TAB 19820606 TRIMETHOPRIM-SULFAMETHOXAZOLE Inactive Immunizations Vaccine Administration Date Value Standard Description Seasonal influenza vaccine, injectable, containing preservative, for > 3 years old (Afluria, FluLaval, Fluzone, Fluvirin, Fluarix, Agriflu(>=18 yo)) Fluzone (>3 yrs.) [GKW522] Influenza, seasonal, injectable influenza immunization (Flu Vax) has been administered Influenza - Unspecified Formulation [CVX88] influenza virus vaccine, unspecified formulation pneumococcal immunization administered Pneumovax 23 [CVX33] pneumococcal polysaccharide vaccine, 23 valent Seasonal influenza vaccine, injectable, containing preservative, for > 3 years old (Afluria, FluLaval, Fluzone, Fluvirin, Fluarix, Agriflu(>=18 yo)) Fluzone (>3 yrs.) [ZVQ962] Influenza, seasonal, injectable dT (Diphtheria and Tetanus) booster given given Td(adult) unspecified formulation Boostrix (Tetanus toxoid, reduced diphtheria toxoid and acellular pertussis vaccine, adsorbed), booster Boostrix [HRW110] tetanus toxoid, reduced diphtheria toxoid, and acellular [...] PANEL - Chemistry cholesterol, serum 166 mg/dL 204-717 0815/12/06 triglyceride, serum, fasting 86 mg/dL 30-200 HDL [...] negative Encounters Code Encounter Date Provider Facility CPT-92466 Level 3 Est. Patient 14:46:09 CDT Tisha Lambert APRN [facility] CPT-40215 Level 4 New Patient 16:13:15 CDT Todd Callaway MD [facility] CPT-12012 Level 4 Est. Patient 13:18:33 CDT Gab Padron MD [facility] CPT-30459 Level 3 Est. Patient 15:20:50 CDT Jared Og MD [facility] CPT-26779 Level 3 Est. Patient 17:43:55 CELLULAR EQUIPMENT REPAIRER Gab Padron MD [facility] CPT-92897 Level 3 Est. Patient 17:07:49 CELLULAR EQUIPMENT REPAIRER Jared Og MD [facility] CPT-95346 Level 4 Est. Patient 19:55:18 CELLULAR EQUIPMENT REPAIRER Jared Og MD [facility] CPT-86657 Level 3 Est. Patient 20:13:34 CELLULAR EQUIPMENT REPAIRER Jared Og MD [facility] CPT-55953 Level 4 Est. Patient 16:31:27 CDT Gab Padron MD [facility] CPT-74553 Level 2 Est. Patient 12:23:38 CDT Jared Og MD [facility] CPT-19192 Level 3 Est. Patient 11:01:51 CDT Gab Padron MD [facility]-62384 Level 3 Est. Patient 15:27:02 CDT Jared Og MD [facility]-77498 Level 4 Est. Patient 09:25:27 CDT Gab Padron MD [facility]-00610 Level 3 Est. Patient 10:29:41 CDT Rodrigo Sarah [facility]-43451 Level 4 Est. Patient 17:51:05 CDT Gab Padron MD [facility]-68990 Level 3 Est. Patient 14:18:08 CDT Gab Padron MD [facility]-31667 Level 4 Est. Patient 10:18:54 CDT Gab Padron MD [facility]-80229 Level 3 Est. Patient 11:30:07 CDT Rodrigo Sarah [facility]-14245 Level 4 Est. Patient 21:02:30 CELLULAR EQUIPMENT REPAIRER Gab Padron MD [facility]-07948 Level 3 Est. Patient 11:02:19 CELLULAR EQUIPMENT REPAIRER Gab Padron MD [facility] CPT-30072 Level 4 Est. Patient 22:24:31 CELLULAR EQUIPMENT REPAIRER Gab Padron MD [facility] CPT-98469 Level 3 Est. Patient 18:33:46 CELLULAR EQUIPMENT REPAIRER Gab Padron MD [facility]-40079 Level 3 Est. Patient 16:19:11 CDT Yolande Lindsay MD PhD [facility]-21170 Level 3 Est. Patient 18:59:14 CDT Yolande Lindsay MD [facility]-99408 Level 4 Est. Patient 21:29:26 CDT Yolande Lindsay MD [facility]-56245 Level 3 Est. Patient 07:37:45 CDT Yolande Lindsay MD [facility] CPT-60936 Level 3 Est. Patient 17:03:46 CDT Yolande Lindsay MD [facility]-68735 Level 4 Est. Patient 20:02:13 CELLULAR EQUIPMENT REPAIRER Yolande Lindsay MD [facility] CPT-35760 Level 3 Est. Patient 16:02:07 CELLULAR EQUIPMENT REPAIRER Alexis Ordaz MD [facility] CPT-27055 Level 3 Est. Patient 12:41:24 CELLULAR EQUIPMENT REPAIRER Yolande Lindsay MD [facility] CPT-75277 Level 3 Est. Patient 15:41:20 CELLULAR EQUIPMENT REPAIRER Yolande Lindsay MD [facility] CPT-76518 Level 3 Est. Patient 13:20:02 CELLULAR EQUIPMENT REPAIRER Yolande Lindsay MD [facility] CPT-85273 Level 3 Est. Patient 15:00:38 CDT Jared Og MD [facility] CPT-03689 Level 3 Est. Patient 10:22:32 CDT Yolande Lindsay MD [facility] CPT-67232 Level 3 Est. Patient 17:12:58 CDT Yolande Lindsay MD [facility] CPT-13606 Level 4 Est. Patient 13:30:58 CDT Yolande Lindsay MD [facility] CPT-97259 Level 4 New Patient 09:02:42 CDT Jared Og MD [facility] CPT-22233 Level 3 Est. Patient 08:19:07 CDT Yolande Lindsay MD [facility] CPT-41879 Level 3 Est. Patient 12:00:13 CELLULAR EQUIPMENT REPAIRER Gab Padron MD [facility] CPT-77711 Level 3 Est. Patient 16:15:23 CELLULAR EQUIPMENT REPAIRER Yolande Lindsay MD [facility] CPT-88820 Level 2 Est. Patient 19:47:15 CDT Yolande Lindsay MD [facility]-02319 Level 3 Est. Patient 21:38:31 CDT Yolande Lindsay MD [facility]-98647 Level 3 Est. Patient 10:25:12 CDT Adiel PERAZA [facility]-44545 Level 4 Est. Patient 10:51:58 CDT Yolande Lindsay MD [facility]-54578 Level 3 Est. Patient 14:04:55 CELLULAR EQUIPMENT REPAIRER Rodrigo Sarah [facility]-61137 Level 3 Est. Patient 10:46:35 CELLULAR EQUIPMENT REPAIRER Rodrigo Sarah [facility]-21101 Level 3 Est. Patient 14:24:37 CELLULAR EQUIPMENT REPAIRER Yolande Lindsay MD [facility]-82194 Level 3 Est. Patient 17:41:58 CELLULAR EQUIPMENT REPAIRER Yolande Lindsay MD [facility]-71532 Level 2 Est. Patient 22:01:41 CELLULAR EQUIPMENT REPAIRER Rodrigo Sarah [facility]-74930 Level 2 Est. Patient 22:01:11 CELLULAR EQUIPMENT REPAIRER Rodrigo Sarah [facility]-72427 Level 3 Est. Patient 10:12:29 CELLULAR EQUIPMENT REPAIRER Rodrigo Sarah [facility]-99076 Level 3 Est. Patient 11:05:44 CDT Alexis Ordaz MD [facility]-37845 Level 3 Est. Patient 14:57:20 CDT Yolande Lindsay MD [facility]-68416 Level 3 Est. Patient 14:40:57 CDT Yolande Lindsay MD [facility]52774 Level 3 Est. Patient 20:55:40 CDT Yolande Lindsay MD PhD [facility] CPT-84625 Level 3 Est. Patient 12:42:38 CELLULAR EQUIPMENT REPAIRER Yolande Lindsay MD PhD [facility] CPT-12668 Level 3 Est. Patient 11:54:49 CELLULAR EQUIPMENT REPAIRER Des Hines MD [facility] CPT-77829 Level 3 Est. Patient 17:06:38 CDT Dewayne PERAZA [facility] Procedures Code Procedure Name Date Entry Date Standard Description CPT-J2930 Solu Medrol 125 mg (Methyl Prednisolone Sodium Succinate) 13:19:02 CDT CPT-76461 Abx/Therapy Injection 13:19:02 CDT CPT-J2930 Solu Medrol 125 mg (Methyl Prednisolone Sodium Succinate) 13:05:03 CDT CPT-25521 Hip, complete, 2-3 views - XRAY USE ONLY 17:19:04 CELLULAR EQUIPMENT REPAIRER CPT-18363 Venipuncture Draw Fee 08:37:59 CELLULAR EQUIPMENT REPAIRER CPT-32951 Liver Profile - LAB USE ONLY 08:37:59 CELLULAR EQUIPMENT REPAIRER CPT-00365 Lipid - LAB USE ONLY 08:37:58 CELLULAR EQUIPMENT REPAIRER CPT-83151 First Vx - Ix admin via ID IM or jet injects without counseling by physician 11:52:31 CDT CPT-91356 Fluzone Preservative Free Intramuscular Suspension 11:52 :31 CDT CPT-64640 Foot, left, comp min 3V - XRAY USE ONLY 09:24:54 CDT CPT-27398 Abd single AP View - XRAY USE ONLY 11:16:17 CDT CPT-22447 T spine AP/ Lat - XRAY USE ONLY 09:34:21 CDT CPT-71792 Chest 2V Frontal and Lat - XRAY USE ONLY 10:48:51 CDT CPT-05271 LS spine comp w obliq 13:28:00 CELLULAR EQUIPMENT REPAIRER CPT-J1040 Depo Medrol 80 mg (Methyl Prednisolone Acetate) 10:51: 28 CELLULAR EQUIPMENT REPAIRER CPT-J1100 Decadron 8mg (Dexamethasone) 10:51:28 CELLULAR EQUIPMENT REPAIRER CPT-26840 Abx/Therapy Injection 10:51:28 CELLULAR EQUIPMENT REPAIRER CPT-J1100 Decadron 8mg (Dexamethasone) 21:02:30 CELLULAR EQUIPMENT REPAIRER CPT-J1040 Depo Medrol 80 mg (Methyl Prednisolone Acetate) 21:02: 30 CELLULAR EQUIPMENT REPAIRER [id number] Event Monitor - MC Transmission 09:12:32 CDT 08/06 [id number] Event Monitor - MC review and interp 09:12:32 CDT [id number] Event Monitor - MC recording 09:12:32 CDT CPT-60257 EKG Trac and Interp 16:50:22 CDT CPT-J1030 Depo Medrol 40 mg (Methyl Prednisolone Acetate) 17:05: 54 CDT CPT-J1100 Decadron 4mg (Dexamethasone) 17:05:54 CDT CPT-54813 Abx/Therapy Injection 17:05:54 CDT CPT-J1100 Decadron 4mg (Dexamethasone) 16:55:28 CDT CPT-J1030 Depo Medrol 40 mg (Methyl Prednisolone Acetate) 16:55: 28 CDT CPT-15547 Ankle Complete - Min 3V 15:58:50 CDT CPT-36297 Knee 3V 15:58:50 CDT CPT-12618 Hip comp min 2V 15:58:50 CDT CPT-J2270 Morphine Sulfate 10 mg 14:25:44 CELLULAR EQUIPMENT REPAIRER CPT-J2550 Phenergan 12.5 mg (Promethazine) 14:25:44 CELLULAR EQUIPMENT REPAIRER CPT-90526 Abx/Therapy Injection 14:25:44 CELLULAR EQUIPMENT REPAIRER CPT-J2550 Phenergan 12.5 mg (Promethazine) 14:08:03 CELLULAR EQUIPMENT REPAIRER CPT-J2270 Morphine Sulfate 10 mg 14:08:03 CELLULAR EQUIPMENT REPAIRER CPT-19197 Bladder Scan 15:00:38 CDT CPT-TCMM Transitional Care Mgmt-Moderate 09:52:22 CDT CPT-J1030 Depo Medrol 40 mg (Methyl Prednisolone Acetate) 10:55: 18 CDT CPT-J1100 Decadron 4mg (Dexamethasone) 10:55:18 CDT CPT-25813 Abx/Therapy Injection 10:55:18 CDT CPT-J1030 Depo Medrol 40 mg (Methyl Prednisolone Acetate) 10:22: 32 CDT CPT-J1100 Decadron 4mg (Dexamethasone) 10:22:32 CDT CPT-40558 Postop F/U Visit 14:37:13 CDT CPT-61957 Ankle Complete - Min 3V 17:11:58 CDT CPT-16069 Foot comp min 3V 17:11:58 CDT CPT-57912 Bladder Scan 09:56:58 CDT CPT-11255 Postop F/U Visit 09:56:58 CDT CPT-54356 Cystoscopy 09:02:42 CDT CPT-31696 Bladder Scan 09:02:42 CDT CPT-18205 Abd single AP View 16:00:35 CDT CPT-69450 Administration single or combination vaccine inc oral 10 :15:43 CDT CPT-39900 Influenza split virus > age 3 10:15:43 CDT CPT-23673 Nail Avulsion 09:24:57 CDT CPT-OV Office Visit 11:15:41 CDT CPT-07087 Abx/Therapy Injection 10:51:30 CDT CPT-J3301 Kenalog 40 mg (Triamcinolone Acetonide) 10:25:12 CDT CPT-J1100 Decadron 4mg (Dexamethasone) 10:25:12 CDT CPT-12149 Anoscopy diagnostic 10:36:12 CDT CPT-OV Office Visit 15:34:31 CDT CPT-10148 Abx/Therapy Injection 08:21:15 CELLULAR EQUIPMENT REPAIRER CPT-J1885 Toradol 60 mg (Ketorolac) 10:46:35 CELLULAR EQUIPMENT REPAIRER CPT-OV Office Visit 19:51:16 CELLULAR EQUIPMENT REPAIRER CPT-21209 Spec Collection and Handling Fee 14:34:18 CELLULAR EQUIPMENT REPAIRER CPT-PV Prev. Care Visit 14:19:18 CELLULAR EQUIPMENT REPAIRER CPT-01464 Postop F/U Visit 14:47:51 CELLULAR EQUIPMENT REPAIRER CPT-20800 Postop F/U Visit 15:15:14 CELLULAR EQUIPMENT REPAIRER CPT-08100 Postop F/U Visit 14:41:43 CDT CPT-18207 Postop F/U Visit 15:47:46 CDT CPT-OV Office Visit 15:27:23 CDT CPT-OV Office Visit 17:20:34 CDT CPT-88500 Abx/Therapy Injection 15:05:57 CDT CPT-J1100 Decadron 8mg (Dexamethasone) 14:44:57 CDT CPT-J1040 Depo Medrol 80 mg (Methyl Prednisolone Acetate) 14:44: 57 CDT CPT-JTINJ Joint Injection 10:17:37 CDT CPT-57079 Administration 2+ single or combination vaccines inc oral 13:01:46 CELLULAR EQUIPMENT REPAIRER CPT-88563 Administration single or combination vaccine inc oral 13 :01:46 CELLULAR EQUIPMENT REPAIRER CPT-36270 Pneumovax 13:01:46 CELLULAR EQUIPMENT REPAIRER CPT-20899 Influenza split virus > age 3 13:01:46 CELLULAR EQUIPMENT REPAIRER CPT-93995 Administration single or combination vaccine inc oral 08 :56:49 CDT CPT-07103 Tdap 08:56:49 CDT
--- OUTSIDE RECORDS SUMMARY | 2017-03-21 22:51 | XMS REPORT | Clinical Summary ---
Author Author Admin, E Organization [facility] Address Unknown Phone Unavailable Allergies, Adverse Reactions, Alerts Allergy Name Reaction Description Start Date Severity Status Provider VALENTIN Critical Active Rodrigo Fracharlottel INSTRUMENT AND ELECTRICAL TECHNICIAN CHLORHEXIDINE GLUCONATE tongue and gums swollen Critical Active Hoadante Otto RMA NORFLEX Rash Critical Active Silvestrellina Frazell INSTRUMENT AND ELECTRICAL TECHNICIAN TRAZODONE HCL sees things Critical Active [...] MD Lumbago Cough 786.2 Active Jillina Tyrel INSTRUMENT AND ELECTRICAL TECHNICIAN Cough 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 Jillina Frazellilian INSTRUMENT AND ELECTRICAL TECHNICIAN 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 Anemia 285.9 Active Gab Padron MD Anemia, unspecified Conjunctivitis 372.30 Active Jillnacho Sarah APRN Conjunctivitis, unspecified Sinusitis 473.9 Active Silvestrellina Frazell INSTRUMENT AND ELECTRICAL TECHNICIAN Unspecified sinusitis (chronic) Nonspecific syndrome suggestive of viral illness 079.99 Active Jillina Frazell INSTRUMENT AND ELECTRICAL TECHNICIAN Unspecified viral infection Laryngitis 464.00 Active Jillina Frazell INSTRUMENT AND ELECTRICAL TECHNICIAN Acute laryngitis without mention of obstruction Abdominal [...] Flank pain, left 789.09 Active Jillina Frazell INSTRUMENT AND ELECTRICAL TECHNICIAN Abdominal pain, other specified site; multiple sites Abdominal pain, generalized 789.07 Active Jillina Farshadzell INSTRUMENT AND ELECTRICAL TECHNICIAN Abdominal pain, generalized Back pain, thoracic region, left 724.1 Active Jillina Frazell INSTRUMENT AND ELECTRICAL TECHNICIAN Pain in thoracic spine Abdominal pain, left [...] 1/2 tab daily for 2 days PREDNISONE 91815251955 No Longer Active Gab Padron MD Active ZOFRAN ODT 4 MG TBDP 1 po q6hr PRN Nausea ONDANSETRON 83074061430 Active Gab Padron MD Active IBUPROFEN 600 MG TAB 1 tablet by mouth every 6 hours for 7 days, then 1 tablet every 6 hours as needed. Take with food IBUPROFEN 69875333617 Active Rodrigo Sarah APRN Active BACTRIM DS 800-160 MG TAB 1 tab by mouth twice daily TRIMETHOPRIM-SULFAMETHOXAZOLE 93650403564 No Longer Active Gab Padron MD Active ADVAIR DISKUS 250-50 MCG/DOSE AEPB 1 puff BID FLUTICASONE- SALMETEROL 50023765475 Active Rodrigo Sarah APRN Active LEVOTHYROXINE SODIUM 75 MCG TABS Take 1 tab daily LEVOTHYROXINE SODIUM 53960059462 No Longer Active Mariana Cuadra A Active SYNTHROID 88 MCG ORAL TABS Take one by mouth daily LEVOTHYROXINE SODIUM 39034063535 Active Gab Padron MD Active CHERATUSSIN AC 100-10 MG/5ML SYRP 1 tsp by mouth every 4 hours as needed for cough GUAIFENESIN-CODEINE 01262176121 No Longer Active Gab Padron MD Active POLYTRIM 82582-0.1 UNIT/ML-% SOLN 1 gtt to affected eye q3h x 7 days POLYMYXIN B-TRIMETHOPRIM 46147581466 No Longer Active Gab Padron MD Active FLUTICASONE PROPIONATE 50 MCG/ACT SUSP 1 to 2 sprays each nostril daily 04/21 FLUTICASONE PROPIONATE 68131467550 No Longer Active Gab Padron MD Active TRILEPTAL 600 MG TABS Take one 1 tablet in Am and 1 tablet at night OXCARBAZEPINE 44174085547 Active Gab Padron MD Active CEFDINIR 300 MG CAPS 1 po BID x 10 days CEFDINIR 28606763734 No Longer Active Rodrigo Sarah APRN Active CEFTIN 500 MG TAB 1 twice a day CEFUROXIME AXETIL 22828455261 No Longer Active Gab Padron MD Active AZITHROMYCIN 250 MG TABS 2 po qd x 1 day, then 1 po qd x 4 days AZITHROMYCIN 94526756062 No Longer Active Rodrigo Sarah APRN Active CLARITIN 10 MG TAB 1 tablet by mouth daily as needed for allergies LORATADINE 61129774893 Active Rodrigo Sarah APRN Active OXYCODONE HCL 5 MG ORAL CAPS 1 TAB PO Q HS OXYCODONE HCL 41023156409 No Longer Active Rodrigo Sarah APRN Active NIASPAN 500 MG ORAL CR-TABS 1 pill nightly x 1 week, then 2 pills nightly x 1 week, then 3 pills nightly x 1 week, then 4 pills nightly NIACIN (ANTIHYPERLIPIDEMIC) 85220459878 No Longer Active Rodrigo Sarah APRN Active NIACIN 500 MG TABS 1 pill by mouth nightly x 1 week, then 2 pills x 1 week, then 3 pills x 1 week, then 4 pills nightly - take after evening meal, with applesauce or an apple NIACIN 07921750048 No Longer Active Yolande Lindsay MD PhD Active FISH OIL 1000 MG CAPS 3 pills daily OMEGA-3 FATTY ACIDS 85200474706 Active Yolande Lindsay MD PhD Active TRIAMCINOLONE ACETONIDE 0.1 % CREA apply bid sparingly to rash TRIAMCINOLONE ACETONIDE 54897680412 Active Yolande Lindsay MD PhD Active FUROSEMIDE 20 MG TAB 1 tablet by mouth daily FUROSEMIDE 33290941011 Active Tisha Lambert APRN Active LISINOPRIL 20 MG ORAL TABS 1 tab by mouth daily LISINOPRIL 45353863922 Active Tisha Lambert APRN Active FUROSEMIDE 20 MG TABS 1 pill by mouth daily, for edema FUROSEMIDE 93063444281 No Longer Active Yolande Lindsay MD PhD Active ATORVASTATIN CALCIUM 10 MG TABS 1 pill by mouth daily, for cholesterol 09/06 ATORVASTATIN CALCIUM 09032065202 Active Gab Padron MD Active CALCIUM 600+D PLUS MINERALS 600-400 MG-UNIT ORAL CHEW 1 tab by mouth daily CALCIUM CARBONATE-VIT D-MIN 05764116780 No Longer Active Yolande Lindsay MD PhD Active CYCLOBENZAPRINE HCL 10 MG TABS 1 tablet by mouth three times daily as needed for muscle spasm/pain CYCLOBENZAPRINE HCL 71727003090 Active Yolande Lindsay MD PhD Active ONDANSETRON 4 MG TBDP 1 q4h PRN nausea ONDANSETRON 18565267052 Active Yolande Lindsay MD PhD Active ADULT ASPIRIN EC LOW STRENGTH 81 MG TBEC Take 1 tablet by mouth daily 2014 ASPIRIN 77152098156 No Longer Active Yolande Lindsay MD PhD Active ZOFRAN ODT 4 MG TBDP 1 pill dissolved by mouth every 4 hours if needed for nausea ONDANSETRON 72922540283 No Longer Active Yolande Lindsay MD PhD Active CEFTIN 500 MG TAB 1 twice a day CEFUROXIME AXETIL 80191279236 No Longer Active Yolande Lindsay MD PhD Active ALBUTEROL SULFATE 0.083 % NEBU SOLN one vial per nebulizer every 4-6 hours as needed ALBUTEROL SULFATE 45770052949 No Longer Active Alexis Ordaz MD Active DOXYCYCLINE HYCLATE 100 MG CAP 1 cap by mouth twice daily DOXYCYCLINE HYCLATE 56333355503 No Longer Active Yolande Lindsay MD PhD Active CYCLOBENZAPRINE HCL 10 MG TABS 1/2 - 1 tab by mouth three times daily if needed for spasms/pain CYCLOBENZAPRINE HCL 96458193585 No Longer Active Yolande Lindsay MD PhD Active AZITHROMYCIN 250 MG TABS 2 pills on day 1, then 1 pill daily x 4 days AZITHROMYCIN 37287411517 No Longer Active Yolande Lindsay MD PhD Active XOPENEX 1.25 MG/3ML NEBU 1 neb every 4 hours if needed for cough/congestion LEVALBUTEROL HCL 54830918320 No Longer Active Yolande Lindsay MD PhD Active DOXYCYCLINE HYCLATE 100 MG TAB 1 tab twice a day for 14 days 2013 DOXYCYCLINE HYCLATE 09389205740 No Longer Active Yolande Lindsay MD PhD Active PREVACID 30 MG CPDR Take 1 tablet by mouth daily-PRN LANSOPRAZOLE 27161128693 No Longer Active Yolande Lindsay MD PhD Active PA VITAMIN D-3 2000 UNIT CAPS 1 CAP PO DAILY CHOLECALCIFEROL 27001612228 No Longer Active Yolande Lindsay MD PhD Active CEFDINIR 300 MG CAPS by mouth twice a day CEFDINIR 91345094421 No Longer Active Gab Padron MD Active TOPAMAX 50 MG TABS 1 PO twice daily TOPIRAMATE 64413370550 Active Yolande Lindsay MD PhD Active AZITHROMYCIN 250 MG TABS 2 po qd x 1 day, then 1 po qd x 4 days AZITHROMYCIN 36249800928 No Longer Active Yolaned Lindsay MD PhD Active DICLOFENAC SODIUM 75 MG TBEC 1 tablet by q 12 hours PRN headaches DICLOFENAC SODIUM 21598835873 No Longer Active Yolande Lindsay MD PhD Active FLONASE 50 MCG/ACT SUSP 1 spray each nostril am and hs FLUTICASONE PROPIONATE 71978666310 No Longer Active Todd Callaway MD Active ANUSOL-HC 25 MG SUPPOSITORY 1 rectally twice a day as needed for hemorrhoids HYDROCORTISONE JAYDEN (RECTAL) 13553441167 No Longer Active Yolande Lindsay MD PhD Active ANUSOL-HC 25 MG SUPPOSITORY 1 suppository rectally each evening as needed for anal fissure HYDROCORTISONE JAYDEN (RECTAL) 93420911428 No Longer Active LONNIE Iglesias Active VALIUM 5 MG TAB 1 po 30 minutes prior to your MRI DIAZEPAM 98929214870 No Longer Active LONNIE Iglesias Active METHOCARBAMOL 750 MG TABS 1 PO QID PRN METHOCARBAMOL 65432337840 No Longer Active Daphne Rashard INSTRUMENT AND ELECTRICAL TECHNICIAN Active NITROSTAT 0.4 MG SUBL as directed NITROGLYCERIN 70138437769 No Longer Active Rodrigo Sarah APRN Active ROBAXIN-750 750 MG TABS 2 four times a day for 3 days as needed for muscle spasm, then 1 four times a day as needed METHOCARBAMOL 78146003867 No Longer Active Rodrigo Sarah APRN Active HYDROCODONE-ACETAMINOPHEN 5-325 MG TABS 1 q 4-6 hrs prn HYDROCODONE-ACETAMINOPHEN 31440602295 No Longer Active Rodrigo Sarah APRN Active VERAPAMIL HCL CR 180 MG CR-TABS TAKE 1 TAB DAILY VERAPAMIL HCL 93811949912 No Longer Active Yolande Lindsay MD PhD Active BACTRIM DS 800-160 MG TAB 1 tab by mouth twice daily TRIMETHOPRIM-SULFAMETHOXAZOLE 57862937251 No Longer Active Yolande Lindsay MD PhD Active NEXIUM 40 MG PACK 1 by mouth daily ESOMEPRAZOLE MAGNESIUM 64101596013 No Longer Active Des Hines MD Active EPIPEN 2-CHARLETTE 0.3 MG/0.3ML OMARI as need for allergic reaction EPINEPHRINE 10270182348 Active Yolande Lindsay MD PhD Active NEXIUM 40 MG CPDR 1 PO Q D DAY ESOMEPRAZOLE MAGNESIUM 53332362150 No Longer Active Sadia Perry RN Active NEXIUM 40 MG PACK 1 by mouth daily NEXIUM 40 MG PACK ESOMEPRAZOLE MAGNESIUM Inactive VERAPAMIL HCL CR 180 MG CR-TABS TAKE 1 TAB DAILY VERAPAMIL HCL CR 180 MG CR-TABS VERAPAMIL HCL Inactive HYDROCODONE-ACETAMINOPHEN 5-325 MG TABS 1 q 4-6 hrs prn HYDROCODONE-ACETAMINOPHEN 5-325 MG TABS 621647 HYDROCODONE-ACETAMINOPHEN Inactive ROBAXIN-750 750 MG TABS 2 four times a day for 3 days as needed for muscle spasm, then 1 four times a day as needed ROBAXIN-750 750 MG TABS 987835 METHOCARBAMOL Inactive NITROSTAT 0.4 MG SUBL as directed NITROSTAT 0.4 MG SUBL 421436 NITROGLYCERIN Inactive METHOCARBAMOL 750 MG TABS 1 PO QID PRN METHOCARBAMOL 750 MG TABS 719335 METHOCARBAMOL Inactive VALIUM 5 MG TAB 1 po 30 minutes prior to your MRI VALIUM 5 MG TAB 944160 DIAZEPAM Inactive ANUSOL-HC 25 MG SUPPOSITORY 1 suppository rectally each evening as needed for anal fissure ANUSOL-HC 25 MG SUPPOSITORY 5242884 HYDROCORTISONE JAYDEN (RECTAL) Inactive ANUSOL-HC 25 MG SUPPOSITORY 1 rectally twice a day as needed for hemorrhoids ANUSOL-HC 25 MG SUPPOSITORY 4828475 HYDROCORTISONE JAYDEN (RECTAL) Inactive FLONASE 50 MCG/ACT SUSP 1 spray each nostril am and hs FLONASE 50 MCG/ACT SUSP FLUTICASONE PROPIONATE Inactive DICLOFENAC SODIUM 75 MG TBEC 1 tablet by q 12 hours PRN headaches DICLOFENAC SODIUM 75 MG TBEC 208454 DICLOFENAC SODIUM Inactive PA VITAMIN D-3 2000 UNIT CAPS 1 CAP PO DAILY PA VITAMIN D-3 2000 UNIT CAPS CHOLECALCIFEROL Inactive PREVACID 30 MG CPDR Take 1 tablet by mouth daily-PRN PREVACID 30 MG CPDR 820397 LANSOPRAZOLE Inactive DOXYCYCLINE HYCLATE 100 MG TAB 1 tab twice a day for 14 days 2013 DOXYCYCLINE HYCLATE 100 MG TAB 7377383 DOXYCYCLINE HYCLATE Inactive XOPENEX 1.25 MG/3ML NEBU 1 neb every 4 hours if needed for cough/congestion XOPENEX 1.25 MG/3ML NEBU 834734 LEVALBUTEROL HCL Inactive CYCLOBENZAPRINE HCL 10 MG TABS 1/2 - 1 tab by mouth three times daily if needed for spasms/pain CYCLOBENZAPRINE HCL 10 MG TABS 760882 CYCLOBENZAPRINE HCL Inactive ALBUTEROL SULFATE 0.083 % NEBU SOLN one vial per nebulizer every 4-6 hours as needed ALBUTEROL SULFATE 0.083 % NEBU SOLN 948061 ALBUTEROL SULFATE Inactive CEFTIN 500 MG TAB 1 twice a day CEFTIN 500 MG TAB 590873 CEFUROXIME AXETIL Inactive ZOFRAN ODT 4 MG TBDP 1 pill dissolved by mouth every 4 hours if needed for nausea ZOFRAN ODT 4 MG TBDP 466504 ONDANSETRON Inactive ADULT ASPIRIN EC LOW STRENGTH 81 MG TBEC Take 1 tablet by mouth daily 2014 ADULT ASPIRIN EC LOW STRENGTH 81 MG TBEC 139226 ASPIRIN Inactive CALCIUM 600+D PLUS MINERALS 600-400 [...] or an apple NIACIN 500 MG TABS 898457 NIACIN Inactive NIASPAN 500 MG ORAL CR-TABS 1 pill nightly x 1 week, then 2 pills nightly x 1 week, then 3 pills nightly x 1 week, then 4 pills nightly NIASPAN 500 MG ORAL CR-TABS NIACIN (ANTIHYPERLIPIDEMIC) Inactive OXYCODONE HCL 5 MG ORAL CAPS 1 TAB PO Q HS OXYCODONE HCL 5 MG ORAL CAPS 0743622 OXYCODONE HCL Inactive FLUTICASONE PROPIONATE 50 MCG/ACT SUSP 1 to 2 sprays each nostril daily 04/21 FLUTICASONE PROPIONATE 50 MCG/ACT SUSP 0874946 FLUTICASONE PROPIONATE Inactive POLYTRIM 01515-0.1 UNIT/ML-% SOLN 1 gtt to affected eye q3h x 7 days POLYTRIM 19414-4.1 UNIT/ML-% SOLN 763579 POLYMYXIN B- TRIMETHOPRIM Inactive CHERATUSSIN AC 100-10 MG/5ML SYRP 1 tsp by mouth every 4 hours as needed for cough CHERATUSSIN AC 100-10 MG/5ML SYRP 076466 GUAIFENESIN-CODEINE Inactive LEVOTHYROXINE SODIUM 75 MCG TABS Take 1 tab daily LEVOTHYROXINE SODIUM 75 MCG TABS 924339 LEVOTHYROXINE SODIUM Inactive BACTRIM DS 800-160 MG TAB 1 tab by mouth twice daily BACTRIM DS 800-160 MG TAB 19820606 TRIMETHOPRIM-SULFAMETHOXAZOLE Inactive AZITHROMYCIN 250 MG TABS 2 po qd x 1 day, then 1 po qd x 4 days AZITHROMYCIN 250 MG TABS 5522787 AZITHROMYCIN Inactive CEFDINIR 300 MG CAPS by mouth twice a day CEFDINIR 300 MG CAPS 20020708 CEFDINIR Inactive AZITHROMYCIN 250 MG TABS 2 pills on day 1, then 1 pill daily x 4 days AZITHROMYCIN 250 MG TABS 3991553 AZITHROMYCIN Inactive DOXYCYCLINE HYCLATE 100 MG CAP 1 cap by mouth twice daily DOXYCYCLINE HYCLATE 100 MG CAP 2932505 DOXYCYCLINE HYCLATE Inactive FUROSEMIDE 20 MG TABS 1 pill by mouth daily, for edema FUROSEMIDE 20 MG TABS 398476 FUROSEMIDE Inactive AZITHROMYCIN 250 MG TABS 2 po qd x 1 day, then 1 po qd x 4 days AZITHROMYCIN 250 MG TABS 4112134 AZITHROMYCIN Inactive CEFTIN 500 MG TAB 1 twice a day CEFTIN 500 MG TAB 308819 CEFUROXIME AXETIL Inactive CEFDINIR 300 MG CAPS [...] for 2 days PREDNISONE 20 MG TAB 125170 PREDNISONE Inactive Immunizations Vaccine Administration Date Value Standard Description Seasonal influenza vaccine, injectable, containing preservative, for > 3 years old (Afluria, FluLaval, Fluzone, Fluvirin, Fluarix, Agriflu(>=18 yo)) Fluzone (>3 yrs.) [[id number]] Influenza, seasonal, injectable influenza immunization (Flu Vax) has been administered Influenza - Unspecified Formulation [CVX88] influenza virus vaccine, unspecified formulation pneumococcal immunization administered Pneumovax 23 [CVX33] pneumococcal polysaccharide vaccine, 23 valent Seasonal influenza vaccine, injectable, containing preservative, for > 3 years old (Afluria, FluLaval, Fluzone, Fluvirin, Fluarix, Agriflu(>=18 yo)) Fluzone (>3 yrs.) [SIZ769] Influenza, seasonal, injectable dT (Diphtheria and Tetanus) booster given given Td(adult) unspecified formulation Boostrix (Tetanus toxoid, reduced diphtheria toxoid and acellular pertussis vaccine, adsorbed), booster Boostrix [JGG870] tetanus toxoid, reduced diphtheria toxoid, and acellular [...] Panel - Chemistry sodium, serum 142 mmol/L 735-711 6909/06/30 potassium, serum 4.4 mmol/L 3.5-5.2 chloride, serum [...] Rate - Chemistry sodium, serum 139 mmol/L 087-973 4220/03/24 carbon dioxide, venous blood 22.4 mmol/L 21.0-32.0 [...] ... - Chemistry sodium, serum 143 mmol/L 472-764 4144/05/02 carbon dioxide, venous blood 25.6 mmol/L 21.0-32.0 [...] PANEL - Chemistry cholesterol, serum 166 mg/dL 618-744 6596/12/06 triglyceride, serum, fasting 86 mg/dL 30-200 HDL [...] Negative mg/dL Negative sodium, serum 142 mmol/L 385-940 7272/07/18 carbon dioxide, venous blood 27.8 mmol/L 21.0-32.0 [...] negative Encounters Code Encounter Date Provider Facility CPT-24065 Level 3 Est. Patient 17:07:49 [employer] Jared Og MD [facility] CPT-26445 Level 4 Est. Patient 19:55:18 [employer] Jared Og MD [facility] CPT-91493 Level 3 Est. Patient 20:13:34 [employer] Jared Og MD [facility] CPT-07597 Level 4 Est. Patient 16:31:27 CDT Gab Padron MD [facility] CPT-27828 Level 2 Est. Patient 12:23:38 CDT Jared Og MD [facility] CPT-11938 Level 3 Est. Patient 11:01:51 CDT Gab Padron MD [facility] CPT-87356 Level 3 Est. Patient 15:27:02 CDT Jared Og MD [facility] CPT-31468 Level 4 Est. Patient 09:25:27 CDT Gab Padron MD [facility] CPT-09188 Level 3 Est. Patient 10:29:41 CDT Rodrigo Sarah [facility] CPT-88848 Level 4 Est. Patient 17:51:05 CDT Gab Padron MD [facility]-07632 Level 3 Est. Patient 14:18:08 CDT Gab Padron MD [facility]-29732 Level 4 Est. Patient 10:18:54 CDT Gab Padron MD [facility]-16788 Level 3 Est. Patient 11:30:07 CDT Rodrigo Sarah [facility] CPT-82641 Level 4 Est. Patient 21:02:30 [employer] Gab Padron MD [facility] CPT-24788 Level 3 Est. Patient 11:02:19 [employer] Gab Padron MD [facility] CPT-08244 Level 4 Est. Patient 22:24:31 [employer] Gab Padron MD [facility] CPT-15494 Level 3 Est. Patient 18:33:46 [employer] Gab Padron MD [facility] CPT-32917 Level 3 Est. Patient 16:19:11 CDT Yolande Lindsay MD [facility]-57927 Level 3 Est. Patient 18:59:14 CDT Yolande Lindsay MD [facility] CPT-24738 Level 4 Est. Patient 21:29:26 CDT Yolande Lindsay MD [facility]-25006 Level 3 Est. Patient 07:37:45 CDT Yolande Lindsay MD [facility] CPT-49222 Level 3 Est. Patient 17:03:46 CDT Yolande Lindsay MD [facility]-01222 Level 4 Est. Patient 20:02:13 [employer] Yolande Lindsay MD [facility] CPT-06161 Level 3 Est. Patient 16:02:07 [employer] Alexis Ordaz MD [facility]-48658 Level 3 Est. Patient 12:41:24 [employer] Yolande Lindsay MD [facility]-92727 Level 3 Est. Patient 15:41:20 [employer] Yolande Lindsay MD [facility]-12310 Level 3 Est. Patient 13:20:02 [employer] Yolande Lindsay MD [facility]-07109 Level 3 Est. Patient 15:00:38 CDT Jared Og MD [facility] CPT-56845 Level 3 Est. Patient 10:22:32 CDT Yolande Lindsay MD [facility] CPT-38688 Level 3 Est. Patient 17:12:58 CDT Yolande Lindsay MD [facility] CPT-89048 Level 4 Est. Patient 13:30:58 CDT Yolande Lindsay MD [facility] CPT-54817 Level 4 New Patient 09:02:42 CDT Jared Og MD [facility] CPT-01405 Level 3 Est. Patient 08:19:07 CDT Yolande Lindsay MD [facility]-13506 Level 3 Est. Patient 12:00:13 [employer] Gab Padron MD [facility] CPT-78415 Level 3 Est. Patient 16:15:23 [employer] Yolande Lindsay MD [facility]-46817 Level 2 Est. Patient 19:47:15 CDT Yolande Lindsay MD [facility]-04475 Level 3 Est. Patient 21:38:31 CDT Yolande Lindsay MD [facility]-16516 Level 3 Est. Patient 10:25:12 CDT Adiel PERAZA [facility]-49838 Level 4 Est. Patient 10:51:58 CDT Yolande Lindsay MD [facility]-84981 Level 3 Est. Patient 14:04:55 [employer] Rodrigo Sarah [facility]-91023 Level 3 Est. Patient 10:46:35 [employer] Rodrigo Sarah [facility][note 2] CPT-22230 Level 3 Est. Patient 14:24:37 [employer] Yolande Lindsay MD [facility]-51164 Level 3 Est. Patient 17:41:58 [employer] Yolande Lindsay MD [facility]-61808 Level 2 Est. Patient 22:01:41 [employer] Rodrigo Sarah [facility] [place][note 2] CPT-05710 Level 2 Est. Patient 22:01:11 [employer] Rodrigo Sarah [facility] [place][note 2] CPT-30997 Level 3 Est. Patient 10:12:29 [employer] Rodrigo Sarah [facility] [place][note 2] CPT-53802 Level 3 Est. Patient 11:05:44 CDT Alexsi Ordaz MD [facility]-64955 Level 3 Est. Patient 14:57:20 CDT Yolande Lindsay MD [facility]-22040 Level 3 Est. Patient 14:40:57 CDT Yolande Lindsay MD [facility]64116 Level 3 Est. Patient 20:55:40 CDT Yolande Lindsay MD PhD [facility] CPT-64204 Level 3 Est. Patient 12:42:38 [employer] Yolande Lindsay MD PhD [facility] CPT-57412 Level 3 Est. Patient 11:54:49 [employer] Des Hines MD [facility] CPT-01604 Level 3 Est. Patient 17:06:38 CDT Dewayne PERAZA [facility] Procedures Code Procedure Name Date Entry Date Standard Description CPT-12626 Venipuncture Draw Fee 08:37:59 [employer] CPT-69448 Liver Profile - LAB USE ONLY 08:37:59 [employer] CPT-09544 Lipid - LAB USE ONLY 08:37:58 [employer] CPT-76388 First Vx - Ix admin via ID IM or jet injects without counseling by physician 11:52:31 CDT CPT-33504 Fluzone Preservative Free Intramuscular Suspension 11:52 :31 CDT CPT-17407 Foot, left, comp min 3V - XRAY USE ONLY 09:24:54 CDT CPT-59786 Abd single AP View - XRAY USE ONLY 11:16:17 CDT CPT-02962 T spine AP/ Lat - XRAY USE ONLY 09:34:21 CDT CPT-32098 Chest 2V Frontal and Lat - XRAY USE ONLY 10:48:51 CDT CPT-40407 LS spine comp w obliq 13:28:00 [employer] CPT-J1040 Depo Medrol 80 mg (Methyl Prednisolone Acetate) 10:51: 28 [employer] CPT-J1100 Decadron 8mg (Dexamethasone) 10:51:28 [employer] CPT-57436 Abx/Therapy Injection 10:51:28 [employer] CPT-J1100 Decadron 8mg (Dexamethasone) 21:02:30 [employer] CPT-J1040 Depo Medrol 80 mg (Methyl Prednisolone Acetate) 21:02: 30 [employer] [id number] Event Monitor - MC Transmission 09:12:32 CDT 08/06 [id number] Event Monitor - MC review and interp 09:12:32 CDT [id number] Event Monitor - MC recording 09:12:32 CDT CPT-87864 EKG Trac and Interp 16:50:22 CDT CPT-J1030 Depo Medrol 40 mg (Methyl Prednisolone Acetate) 17:05: 54 CDT CPT-J1100 Decadron 4mg (Dexamethasone) 17:05:54 CDT CPT-68935 Abx/Therapy Injection 17:05:54 CDT CPT-J1100 Decadron 4mg (Dexamethasone) 16:55:28 CDT CPT-J1030 Depo Medrol 40 mg (Methyl Prednisolone Acetate) 16:55: 28 CDT CPT-13308 Ankle Complete - Min 3V 15:58:50 CDT CPT-97894 Knee 3V 15:58:50 CDT CPT-37543 Hip comp min 2V 15:58:50 CDT CPT-J2270 Morphine Sulfate 10 mg 14:25:44 [employer] CPT-J2550 Phenergan 12.5 mg (Promethazine) 14:25:44 [employer] CPT-13096 Abx/Therapy Injection 14:25:44 [employer] CPT-J2550 Phenergan 12.5 mg (Promethazine) 14:08:03 [employer] CPT-J2270 Morphine Sulfate 10 mg 14:08:03 [employer] CPT-24314 Bladder Scan 15:00:38 CDT CPT-TCMM Transitional Care Mgmt-Moderate 09:52:22 CDT CPT-J1030 Depo Medrol 40 mg (Methyl Prednisolone Acetate) 10:55: 18 CDT CPT-J1100 Decadron 4mg (Dexamethasone) 10:55:18 CDT CPT-75064 Abx/Therapy Injection 10:55:18 CDT CPT-J1030 Depo Medrol 40 mg (Methyl Prednisolone Acetate) 10:22: 32 CDT CPT-J1100 Decadron 4mg (Dexamethasone) 10:22:32 CDT CPT-50959 Postop F/U Visit 14:37:13 CDT CPT-03990 Ankle Complete - Min 3V 17:11:58 CDT CPT-16238 Foot comp min 3V 17:11:58 CDT CPT-03982 Bladder Scan 09:56:58 CDT CPT-64960 Postop F/U Visit 09:56:58 CDT CPT-97309 Cystoscopy 09:02:42 CDT CPT-05906 Bladder Scan 09:02:42 CDT CPT-74264 Abd single AP View 16:00:35 CDT CPT-56576 Administration single or combination vaccine inc oral 10 :15:43 CDT CPT-58342 Influenza split virus > age 3 10:15:43 CDT CPT-12978 Nail Avulsion 09:24:57 CDT CPT-OV Office Visit 11:15:41 CDT CPT-56474 Abx/Therapy Injection 10:51:30 CDT CPT-J3301 Kenalog 40 mg (Triamcinolone Acetonide) 10:25:12 CDT CPT-J1100 Decadron 4mg (Dexamethasone) 10:25:12 CDT CPT-82745 Anoscopy diagnostic 10:36:12 CDT CPT-OV Office Visit 15:34:31 CDT CPT-88894 Abx/Therapy Injection 08:21:15 [employer] CPT-J1885 Toradol 60 mg (Ketorolac) 10:46:35 [employer] CPT-OV Office Visit 19:51:16 [employer] CPT-52758 Spec Collection and Handling Fee 14:34:18 [employer] CPT-PV Prev. Care Visit 14:19:18 [employer] CPT-41385 Postop F/U Visit 14:47:51 [employer] CPT-08694 Postop F/U Visit 15:15:14 [employer] CPT-96201 Postop F/U Visit 14:41:43 CDT CPT-12060 Postop F/U Visit 15:47:46 CDT CPT-OV Office Visit 15:27:23 CDT CPT-OV Office Visit 17:20:34 CDT CPT-53507 Abx/Therapy Injection 15:05:57 CDT CPT-J1100 Decadron 8mg (Dexamethasone) 14:44:57 CDT CPT-J1040 Depo Medrol 80 mg (Methyl Prednisolone Acetate) 14:44: 57 CDT CPT-JTINJ Joint Injection 10:17:37 CDT CPT-48252 Administration 2+ single or combination vaccines inc oral 13:01:46 [employer] CPT-51227 Administration single or combination vaccine inc oral 13 :01:46 [employer] CPT-93811 Pneumovax 13:01:46 [employer] CPT-39845 Influenza split virus > age 3 13:01:46 [employer] CPT-94310 Administration single or combination vaccine inc oral 08 :56:49 CDT CPT-56102 Tdap 08:56:49 CDT
--- OUTSIDE RECORDS SUMMARY | 2017-03-21 22:54 | XMS REPORT | Clinical Summary ---
Author Author Admin, E Organization [facility] Address Unknown Phone Unavailable Allergies, Adverse Reactions, Alerts Allergy Name Reaction Description Start Date Severity Status Provider VALENTIN Critical Active Rodrigo Fracharlottel [employer] CHLORHEXIDINE GLUCONATE tongue and gums swollen Critical Active Hoa Otto RMA NORFLEX Rash Critical Active Silvestrellina Frazell [employer] WORKER TRAZODONE HCL sees things Critical Active [...] PAIN ICD-719.46 Inactive Yolande Lindsay MD PhD GERD ICD-530.81 Inactive Todd Callaway MD BACK PAIN ICD-724.5 Inactive Yolande Lindsay MD PhD AFTERCARE FOLLOW SURGERY MUSCULOSKEL SYSTEM NEC ICD-V58.78 02/06 Refugio Callaway MD FREQUENCY, URINARY ICD-788.41 Inactive Yolande [...] COCCYX ICD-724.79 Inactive Yolande Lindsay MD PhD ALLERGIC REACTION, ACUTE ICD-995.3 Inactive Alexis Ordaz MD ABDOMINAL PAIN, LEFT LOWER QUADRANT ICD-789.04 Inactive [...] right ICD-719.47 Inactive Yolande Lindsay MD PhD ABDOMINAL PAIN, [...] 1 tab by mouth twice daily TRIMETHOPRIM-SULFAMETHOXAZOLE 07358177149 No Longer Active Tisha Lambert APRN Active ADVAIR DISKUS 250-50 MCG/DOSE AEPB 1 puff BID FLUTICASONE-SALMETEROL 12432835088 No Longer Active Todd Callaway MD Active ONDANSETRON 4 MG TBDP 1 q4h PRN nausea ONDANSETRON 33497945713 No Longer Active LONNIE Iglesias Active FISH OIL 1000 MG CAPS 3 pills daily OMEGA-3 FATTY ACIDS 94659916499 No Longer Active LONNIE Iglesias Active CETIRIZINE HCL 10 MG ORAL TABS 1 po qd PRN Allergies CETIRIZINE HCL 32027788662 Active Gab Padron MD Active CLARITIN 10 MG TAB 1 tablet by mouth daily as needed for allergies LORATADINE 12574260798 No Longer Active Gab Padron MD Active PREDNISONE 20 MG TAB take 3 tabs daily for 3 days, 2 tabs daily for 3 days, 1 tab daily for 3 days, 1/2 tab daily for 3 days PREDNISONE 63897136547 No Longer Active Tisha Lambert APRN Active TRAMADOL HCL 50 MG TABS 1 tab po every 6 hrs prn pain TRAMADOL HCL 09706927213 Active Gab Padron MD Active PREDNISONE 20 MG TAB 2 tabs daily for 3 days, 1 tab daily for 3 days, 1/2 tab daily for 2 days PREDNISONE 88859485725 No Longer Active Gab Padron MD Active ZOFRAN ODT 4 MG TBDP 1 po q6hr PRN Nausea ONDANSETRON 62570460945 Active Gab Padron MD Active IBUPROFEN 600 MG TAB 1 tablet by mouth every 6 hours for 7 days, then 1 tablet every 6 hours as needed. Take with food IBUPROFEN 57819062050 Active Rodrigo Sarah APRN Active BACTRIM DS 800-160 MG TAB 1 tab by mouth twice daily TRIMETHOPRIM-SULFAMETHOXAZOLE 75140590559 No Longer Active Gab Padron MD Active LEVOTHYROXINE SODIUM 75 MCG TABS Take 1 tab daily LEVOTHYROXINE SODIUM 69789989024 No Longer Active Mariana Cuadra [facility] Active SYNTHROID 88 MCG ORAL TABS Take one by mouth daily LEVOTHYROXINE SODIUM 55639237185 Active Gab Padron MD Active CHERATUSSIN AC 100-10 MG/5ML SYRP 1 tsp by mouth every 4 hours as needed for cough GUAIFENESIN-CODEINE 09789853379 No Longer Active Gab Padron MD Active POLYTRIM 91192-5.1 UNIT/ML-% SOLN 1 gtt to affected eye q3h x 7 days POLYMYXIN B-TRIMETHOPRIM 26206380238 No Longer Active Gab Padron MD Active FLUTICASONE PROPIONATE 50 MCG/ACT SUSP 1 to 2 sprays each nostril daily 04/21 FLUTICASONE PROPIONATE 09642147019 No Longer Active Gab Padron MD Active TRILEPTAL 600 MG TABS Take one 1 tablet in Am and 1 tablet at night OXCARBAZEPINE 83983914867 Active Gab Padron MD Active CEFDINIR 300 MG CAPS 1 po BID x 10 days CEFDINIR 92181965082 No Longer Active Rodrigo Sarah APRN Active CEFTIN 500 MG TAB 1 twice a day CEFUROXIME AXETIL 74181087138 No Longer Active Gab Padron MD Active AZITHROMYCIN 250 MG TABS 2 po qd x 1 day, then 1 po qd x 4 days AZITHROMYCIN 60084791419 No Longer Active Rodrigo Sarah APRN Active OXYCODONE HCL 5 MG ORAL CAPS 1 TAB PO Q HS OXYCODONE HCL 14901957792 No Longer Active Rodrigo Sarah APRN Active NIASPAN 500 MG ORAL CR-TABS 1 pill nightly x 1 week, then 2 pills nightly x 1 week, then 3 pills nightly x 1 week, then 4 pills nightly NIACIN (ANTIHYPERLIPIDEMIC) 68507488189 No Longer Active Rodrigo Sarah APRN Active NIACIN 500 MG TABS 1 pill by mouth nightly x 1 week, then 2 pills x 1 week, then 3 pills x 1 week, then 4 pills nightly - take after evening meal, with applesauce or an apple NIACIN 12757241592 No Longer Active Yolande Lindsay MD PhD Active TRIAMCINOLONE ACETONIDE 0.1 % CREA apply bid sparingly to rash TRIAMCINOLONE ACETONIDE 84616589235 Active Yolande Lindsay MD PhD Active FUROSEMIDE 20 MG TAB 1 tablet by mouth daily FUROSEMIDE 27348095326 Active Gab Padron MD Active LISINOPRIL 20 MG ORAL TABS 1 tab by mouth daily LISINOPRIL 60575869307 Active Gab Padron MD Active FUROSEMIDE 20 MG TABS 1 pill by mouth daily, for edema FUROSEMIDE 24576446007 No Longer Active Yolande Lindsay MD PhD Active ATORVASTATIN CALCIUM 10 MG TABS 1 pill by mouth daily, for cholesterol 09/06 ATORVASTATIN CALCIUM 09943843099 Active Gab Padron MD Active CALCIUM 600+D PLUS MINERALS 600-400 MG-UNIT ORAL CHEW 1 tab by mouth daily CALCIUM CARBONATE-VIT D-MIN 95190859204 No Longer Active Yolande Lindsay MD PhD Active CYCLOBENZAPRINE HCL 10 MG TABS 1 tablet by mouth three times daily as needed for muscle spasm/pain CYCLOBENZAPRINE HCL 13265934938 Active Yolande Lindsay MD PhD Active ADULT ASPIRIN EC LOW STRENGTH 81 MG TBEC Take 1 tablet by mouth daily 2014 ASPIRIN 41414239457 No Longer Active Yolande Lindsay MD PhD Active ZOFRAN ODT 4 MG TBDP 1 pill dissolved by mouth every 4 hours if needed for nausea ONDANSETRON 37268258759 No Longer Active Yolande Lindsay MD PhD Active CEFTIN 500 MG TAB 1 twice a day CEFUROXIME AXETIL 00984114879 No Longer Active Yolande Lindsay MD PhD Active ALBUTEROL SULFATE 0.083 % NEBU SOLN one vial per nebulizer every 4-6 hours as needed ALBUTEROL SULFATE 04250992214 No Longer Active Alexis Ordaz MD Active DOXYCYCLINE HYCLATE 100 MG CAP 1 cap by mouth twice daily DOXYCYCLINE HYCLATE 91366608595 No Longer Active Yolande Lindsay MD PhD Active CYCLOBENZAPRINE HCL 10 MG TABS 1/2 - 1 tab by mouth three times daily if needed for spasms/pain CYCLOBENZAPRINE HCL 10562528139 No Longer Active Yolande Lindsay MD PhD Active AZITHROMYCIN 250 MG TABS 2 pills on day 1, then 1 pill daily x 4 days AZITHROMYCIN 86614402206 No Longer Active Yolande Lindsay MD PhD Active XOPENEX 1.25 MG/3ML NEBU 1 neb every 4 hours if needed for cough/congestion LEVALBUTEROL HCL 35052126927 No Longer Active Yolande Lindsay MD PhD Active DOXYCYCLINE HYCLATE 100 MG TAB 1 tab twice a day for 14 days 2013 DOXYCYCLINE HYCLATE 08426740010 No Longer Active Yolande Lindsay MD PhD Active PREVACID 30 MG CPDR Take 1 tablet by mouth daily-PRN LANSOPRAZOLE 69404376688 No Longer Active Yolande Lindsya MD PhD Active PA VITAMIN D-3 2000 UNIT CAPS 1 CAP PO DAILY CHOLECALCIFEROL 05263655320 No Longer Active Yolande Lindsay MD PhD Active CEFDINIR 300 MG CAPS by mouth twice a day CEFDINIR 95960454604 No Longer Active Gab Padron MD Active TOPAMAX 50 MG TABS 1 PO twice daily TOPIRAMATE 10364349748 Active Yolande Lindsay MD PhD Active AZITHROMYCIN 250 MG TABS 2 po qd x 1 day, then 1 po qd x 4 days AZITHROMYCIN 92017019564 No Longer Active Yolande Lindsay MD PhD Active DICLOFENAC SODIUM 75 MG TBEC 1 tablet by q 12 hours PRN headaches DICLOFENAC SODIUM 06145423901 No Longer Active Yolande Lindsay MD PhD Active FLONASE 50 MCG/ACT SUSP 1 spray each nostril am and hs FLUTICASONE PROPIONATE 81826011765 No Longer Active Todd Callaway MD Active ANUSOL-HC 25 MG SUPPOSITORY 1 rectally twice a day as needed for hemorrhoids HYDROCORTISONE JAYDEN (RECTAL) 60757983788 No Longer Active Yolande Lindsay MD PhD Active ANUSOL-HC 25 MG SUPPOSITORY 1 suppository rectally each evening as needed for anal fissure HYDROCORTISONE JAYDEN (RECTAL) 88199041407 No Longer Active LONNIE Iglesias Active VALIUM 5 MG TAB 1 po 30 minutes prior to your MRI DIAZEPAM 31920600677 No Longer Active LONNIE Iglesias Active METHOCARBAMOL 750 MG TABS 1 PO QID PRN METHOCARBAMOL 00288094375 No Longer Active Daphne Wetzel APRN Active NITROSTAT 0.4 MG SUBL as directed NITROGLYCERIN 79319168378 No Longer Active Rodrigo Sarah APRN Active ROBAXIN-750 750 MG TABS 2 four times a day for 3 days as needed for muscle spasm, then 1 four times a day as needed METHOCARBAMOL 06417034355 No Longer Active Rodrigo Sarah APRN Active HYDROCODONE-ACETAMINOPHEN 5-325 MG TABS 1 q 4-6 hrs prn HYDROCODONE-ACETAMINOPHEN 19265892870 No Longer Active Rodrigo Sarah [employer] Active VERAPAMIL HCL CR 180 MG CR-TABS TAKE 1 TAB DAILY VERAPAMIL HCL 75169882352 No Longer Active Yolande Lindsay MD PhD Active BACTRIM DS 800-160 MG TAB 1 tab by mouth twice daily TRIMETHOPRIM-SULFAMETHOXAZOLE 67405221145 No Longer Active Yolande Lindsay MD PhD Active NEXIUM 40 MG PACK 1 by mouth daily ESOMEPRAZOLE MAGNESIUM 10822393250 No Longer Active Des Hines MD Active EPIPEN 2-CHARLETTE 0.3 MG/0.3ML OMARI as need for allergic reaction EPINEPHRINE 68541749358 Active Yolande Lindsay MD PhD Active NEXIUM 40 MG CPDR 1 PO Q D DAY ESOMEPRAZOLE MAGNESIUM 28182883574 No Longer Active Sadia Perry RN Active NEXIUM 40 MG PACK 1 by mouth daily NEXIUM 40 MG PACK ESOMEPRAZOLE MAGNESIUM Inactive VERAPAMIL HCL CR 180 MG CR-TABS TAKE 1 TAB DAILY VERAPAMIL HCL CR 180 MG CR-TABS VERAPAMIL HCL Inactive HYDROCODONE-ACETAMINOPHEN 5-325 MG TABS 1 q 4-6 hrs prn HYDROCODONE-ACETAMINOPHEN 5-325 MG TABS 464751 HYDROCODONE-ACETAMINOPHEN Inactive ROBAXIN-750 750 MG TABS 2 four times a day for 3 days as needed for muscle spasm, then 1 four times a day as needed ROBAXIN-750 750 MG TABS 474136 METHOCARBAMOL Inactive NITROSTAT 0.4 MG SUBL as directed NITROSTAT 0.4 MG SUBL 932290 NITROGLYCERIN Inactive METHOCARBAMOL 750 MG TABS 1 PO QID PRN METHOCARBAMOL 750 MG TABS 275034 METHOCARBAMOL Inactive VALIUM 5 MG TAB 1 po 30 minutes prior to your MRI VALIUM 5 MG TAB 020253 DIAZEPAM Inactive ANUSOL-HC 25 MG SUPPOSITORY 1 suppository rectally each evening as needed for anal fissure ANUSOL-HC 25 MG SUPPOSITORY 1716622 HYDROCORTISONE JAYDEN (RECTAL) Inactive ANUSOL-HC 25 MG SUPPOSITORY 1 rectally twice a day as needed for hemorrhoids ANUSOL-HC 25 MG SUPPOSITORY 2292369 HYDROCORTISONE JAYDEN (RECTAL) Inactive FLONASE 50 MCG/ACT SUSP 1 spray each nostril am and hs FLONASE 50 MCG/ACT SUSP 5599551 FLUTICASONE PROPIONATE Inactive DICLOFENAC SODIUM 75 MG TBEC 1 tablet by q 12 hours PRN headaches DICLOFENAC SODIUM 75 MG TBEC 800146 DICLOFENAC SODIUM Inactive PA VITAMIN D-3 2000 UNIT CAPS 1 CAP PO DAILY PA VITAMIN D-3 2000 UNIT CAPS CHOLECALCIFEROL Inactive PREVACID 30 MG CPDR Take 1 tablet by mouth daily-PRN PREVACID 30 MG CPDR 975245 LANSOPRAZOLE Inactive DOXYCYCLINE HYCLATE 100 MG TAB 1 tab twice a day for 14 days 2013 DOXYCYCLINE HYCLATE 100 MG TAB 3010081 DOXYCYCLINE HYCLATE Inactive XOPENEX 1.25 MG/3ML NEBU 1 neb every 4 hours if needed for cough/congestion XOPENEX 1.25 MG/3ML NEBU 384437 LEVALBUTEROL HCL Inactive CYCLOBENZAPRINE HCL 10 MG TABS 1/2 - 1 tab by mouth three times daily if needed for spasms/pain CYCLOBENZAPRINE HCL 10 MG TABS 503403 CYCLOBENZAPRINE HCL Inactive ALBUTEROL SULFATE 0.083 % NEBU SOLN one vial per nebulizer every 4-6 hours as needed ALBUTEROL SULFATE 0.083 % NEBU SOLN 394859 ALBUTEROL SULFATE Inactive CEFTIN 500 MG TAB 1 twice a day CEFTIN 500 MG TAB 082369 CEFUROXIME AXETIL Inactive ZOFRAN ODT 4 MG TBDP 1 pill dissolved by mouth every 4 hours if needed for nausea ZOFRAN ODT 4 MG TBDP 895775 ONDANSETRON Inactive ADULT ASPIRIN EC LOW STRENGTH 81 MG TBEC Take 1 tablet by mouth daily 2014 ADULT ASPIRIN EC LOW STRENGTH 81 MG TBEC 839592 ASPIRIN Inactive CALCIUM 600+D PLUS MINERALS 600-400 [...] or an apple NIACIN 500 MG TABS 133218 NIACIN Inactive NIASPAN 500 MG ORAL CR-TABS 1 pill nightly x 1 week, then 2 pills nightly x 1 week, then 3 pills nightly x 1 week, then 4 pills nightly NIASPAN 500 MG ORAL CR-TABS NIACIN (ANTIHYPERLIPIDEMIC) Inactive OXYCODONE HCL 5 MG ORAL CAPS 1 TAB PO Q HS OXYCODONE HCL 5 MG ORAL CAPS 0565718 OXYCODONE HCL Inactive FLUTICASONE PROPIONATE 50 MCG/ACT SUSP 1 to 2 sprays each nostril daily 04/21 FLUTICASONE PROPIONATE 50 MCG/ACT SUSP 3928651 FLUTICASONE PROPIONATE Inactive POLYTRIM 90706-5.1 UNIT/ML-% SOLN 1 gtt to affected eye q3h x 7 days POLYTRIM 29172-0.1 UNIT/ML-% SOLN 325320 POLYMYXIN B- TRIMETHOPRIM Inactive CHERATUSSIN AC 100-10 MG/5ML SYRP 1 tsp by mouth every 4 hours as needed for cough CHERATUSSIN AC 100-10 MG/5ML SYRP 563703 GUAIFENESIN-CODEINE Inactive LEVOTHYROXINE SODIUM 75 MCG TABS Take 1 tab daily LEVOTHYROXINE SODIUM 75 MCG TABS 480620 LEVOTHYROXINE SODIUM Inactive CLARITIN 10 MG TAB 1 tablet by mouth daily as needed for allergies CLARITIN 10 MG TAB 412072 LORATADINE Inactive FISH OIL 1000 MG CAPS 3 pills daily FISH OIL 1000 MG CAPS OMEGA-3 FATTY ACIDS Inactive ONDANSETRON 4 MG TBDP 1 q4h PRN nausea ONDANSETRON 4 MG TBDP 409091 ONDANSETRON Inactive ADVAIR DISKUS 250-50 MCG/DOSE AEPB 1 puff BID ADVAIR DISKUS 250-50 MCG/DOSE AEPB FLUTICASONE-SALMETEROL Inactive BACTRIM DS 800-160 MG TAB 1 tab by mouth twice daily BACTRIM DS 800-160 MG TAB 775877 TRIMETHOPRIM-SULFAMETHOXAZOLE Inactive AZITHROMYCIN 250 MG TABS 2 po qd x 1 day, then 1 po qd x 4 days AZITHROMYCIN 250 MG TABS 0966235 AZITHROMYCIN Inactive CEFDINIR 300 MG CAPS by mouth twice a day CEFDINIR 300 MG CAPS 548793 CEFDINIR Inactive AZITHROMYCIN 250 MG TABS 2 pills on day 1, then 1 pill daily x 4 days AZITHROMYCIN 250 MG TABS 9305645 AZITHROMYCIN Inactive DOXYCYCLINE HYCLATE 100 MG CAP 1 cap by mouth twice daily DOXYCYCLINE HYCLATE 100 MG CAP 7042089 DOXYCYCLINE HYCLATE Inactive FUROSEMIDE 20 MG TABS 1 pill by mouth daily, for edema FUROSEMIDE 20 MG TABS 542355 FUROSEMIDE Inactive AZITHROMYCIN 250 MG TABS 2 po qd x 1 day, then 1 po qd x 4 days AZITHROMYCIN 250 MG TABS 1913611 AZITHROMYCIN Inactive CEFTIN 500 MG TAB 1 twice a day CEFTIN 500 MG TAB 860448 CEFUROXIME AXETIL Inactive CEFDINIR 300 MG CAPS 1 po BID x 10 days CEFDINIR 300 MG CAPS 083593 CEFDINIR Inactive BACTRIM DS 800-160 MG TAB 1 tab by mouth twice daily BACTRIM DS 800-160 MG TAB 19820606 TRIMETHOPRIM-SULFAMETHOXAZOLE Inactive PREDNISONE 20 MG TAB 2 tabs daily for 3 days, 1 tab daily for 3 days, 1/2 tab daily for 2 days PREDNISONE 20 MG TAB 559868 PREDNISONE Inactive PREDNISONE 20 MG TAB take 3 tabs daily for 3 days, 2 tabs daily for 3 days, 1 tab daily for 3 days, 1/2 tab daily for 3 days PREDNISONE 20 MG TAB 449555 PREDNISONE Inactive BACTRIM DS 800-160 MG TAB 1 tab by mouth twice daily BACTRIM DS 800-160 MG TAB 19820606 TRIMETHOPRIM-SULFAMETHOXAZOLE Inactive Immunizations Vaccine Administration Date Value Standard Description Seasonal influenza vaccine, injectable, containing preservative, for > 3 years old (Afluria, FluLaval, Fluzone, Fluvirin, Fluarix, Agriflu(>=18 yo)) Fluzone (>3 yrs.) [ZWY157] Influenza, seasonal, injectable influenza immunization (Flu Vax) has been administered Influenza - Unspecified Formulation [CVX88] influenza virus vaccine, unspecified formulation pneumococcal immunization administered Pneumovax 23 [CVX33] pneumococcal polysaccharide vaccine, 23 valent Seasonal influenza vaccine, injectable, containing preservative, for > 3 years old (Afluria, FluLaval, Fluzone, Fluvirin, Fluarix, Agriflu(>=18 yo)) Fluzone (>3 yrs.) [HHO341] Influenza, seasonal, injectable dT (Diphtheria and Tetanus) booster given given Td(adult) unspecified formulation Boostrix (Tetanus toxoid, reduced diphtheria toxoid and acellular pertussis vaccine, adsorbed), booster Boostrix [NYL254] tetanus toxoid, reduced diphtheria toxoid, and acellular [...] temperature weight E&M 246.5 [lb_av] Weight Measured Diagnostic Results Date Name Value Unit Range Description Lab Report: Lipid Panel, HEPATIC PANEL - Chemistry cholesterol, serum 166 mg/dL [phone]/12/06 triglyceride, serum, fasting 86 mg/dL 30-200 HDL [...] negative Encounters Code Encounter Date Provider Facility CPT-15294 Level 3 Est. Patient 14:46:09 CDT Tisha Lambert APRN [facility] CPT-60776 Level 4 New Patient 16:13:15 CDT Todd Callaway MD [facility] CPT-07984 Level 4 Est. Patient 13:18:33 CDT Gab Padrno MD [facility] CPT-71220 Level 3 Est. Patient 15:20:50 CDT Jared Og MD [facility] CPT-03916 Level 3 Est. Patient 17:43:55 [employer] Gab Padron MD [facility] CPT-16775 Level 3 Est. Patient 17:07:49 [employer] TE[employer] Jared Og MD [facility] CPT-48675 Level 4 Est. Patient 19:55:18 [employer] TE[employer] Jared Og MD [facility] CPT-54622 Level 3 Est. Patient 20:13:34 [employer] TE[employer]ER Jared Og MD [facility] CPT-63945 Level 4 Est. Patient 16:31:27 CDT Gab Padron MD [facility] CPT-69839 Level 2 Est. Patient 12:23:38 CDT Jared Og MD [facility] CPT-29253 Level 3 Est. Patient 11:01:51 CDT Gab Padron MD [facility] CPT-55300 Level 3 Est. Patient 15:27:02 CDT Jared Og MD [facility] [place] CPT-63089 Level 4 Est. Patient 09:25:27 CDT Gab Padron MD [facility] CPT-66564 Level 3 Est. Patient 10:29:41 CDT Rodrigo Sarah [facility] CPT-54838 Level 4 Est. Patient 17:51:05 CDT Gab Padron MD [facility] CPT-55918 Level 3 Est. Patient 14:18:08 CDT Gab Padron MD [facility] CPT-54043 Level 4 Est. Patient 10:18:54 CDT Gab Padron MD [facility] CPT-65622 Level 3 Est. Patient 11:30:07 CDT Rodrigo Sarah [facility] CPT-56865 Level 4 Est. Patient 21:02:30 [employer] Gab Padron MD [facility] CPT-55621 Level 3 Est. Patient 11:02:19 PLANT PATHOLOGY TEACHER Gab Padron MD [facility] CPT-07616 Level 4 Est. Patient 22:24:31 PL[employer] PATHOLOGY TEACHER Gab Padron MD [facility] CPT-79320 Level 3 Est. Patient 18:33:46 PLANT PATHOLOGY TEACHER Gab Padron MD [facility] [place]-02690 Level 3 Est. Patient 16:19:11 CDT Yolande Lindsay MD [facility]-56422 Level 3 Est. Patient 18:59:14 CDT Yolande Lindsay MD [facility]-23046 Level 4 Est. Patient 21:29:26 CDT Yolande Lindsay MD [facility]-56151 Level 3 Est. Patient 07:37:45 CDT Yolande Lindsay MD [facility]-22760 Level 3 Est. Patient 17:03:46 CDT Yolande Lindsay MD [facility]-12041 Level 4 Est. Patient 20:02:13 [employer] Yolande Lindsay MD [facility]-77369 Level 3 Est. Patient 16:02:07 [employer] PATHOLOG[employer] TEACHER Alexis Ordaz MD [facility]-42242 Level 3 Est. Patient 12:41:24 [employer] TE[employer]ER Yolande Lindsay MD [facility]-31952 Level 3 Est. Patient 15:41:20 PL[employer] PATHOLOGY TEACHER Yolande Lindsay MD [facility]-56609 Level 3 Est. Patient 13:20:02 PLANT PATHOLOGY TEACHER Yolande Lindsay MD [facility] CPT-87497 Level 3 Est. Patient 15:00:38 CDT Jared Og MD [facility]-40245 Level 3 Est. Patient 10:22:32 CDT Yolande Lindsay MD [facility]-30167 Level 3 Est. Patient 17:12:58 CDT Yolande Lindsay MD [facility]-66142 Level 4 Est. Patient 13:30:58 CDT Yolande Lindsay MD [facility] CPT-20003 Level 4 New Patient 09:02:42 CDT Jared Og MD [facility]-96698 Level 3 Est. Patient 08:19:07 CDT Yolande Lindsay MD [facility]-40234 Level 3 Est. Patient 12:00:13 [employer]ANT PATHOLOGY TEACHER Gab Padron MD [facility]-23971 Level 3 Est. Patient 16:15:23 PLANT PATHOLOG[employer] TEACHER Yolande Lindsay MD [facility]-41542 Level 2 Est. Patient 19:47:15 CDT Yolande Lindsay MD [facility]-31361 Level 3 Est. Patient 21:38:31 CDT Yolande Lindsay MD [facility]-30816 Level 3 Est. Patient 10:25:12 CDT Adiel PERAZA [facility] CPT-59279 Level 4 Est. Patient 10:51:58 CDT Yolande Lindsay MD [facility]-40452 Level 3 Est. Patient 14:04:55 PLANT PATHOLOG[employer] TEACHER Rodrigo Sarah [facility] CPT-29694 Level 3 Est. Patient 10:46:35 PL[employer] PATHOLOGY TEACHER Rodrigo Sarah [facility]-69986 Level 3 Est. Patient 14:24:37 PLANT PATHOLOGY TEACHER Yolande Lindsay MD PhD [facility]-44884 Level 3 Est. Patient 17:41:58 PLANT PATHOLOGY TEACHER Yolande Lindsay MD [facility]-74928 Level 2 Est. Patient 22:01:41 PLANT PATHOLOGY TEACHER Rodrigo Sarah [facility]-03525 Level 2 Est. Patient 22:01:11 PLANT PATHOLOGY TEACHER Rodrigo Sarah [facility] CPT-92080 Level 3 Est. Patient 10:12:29 PLANT PATHOLOGY TEACHER Rodrigo Sarah [facility] CPT-52317 Level 3 Est. Patient 11:05:44 CDT Alexis Ordaz MD [facility] CPT-52641 Level 3 Est. Patient 14:57:20 CDT Yolande Lindsay MD [facility] CPT-13793 Level 3 Est. Patient 14:40:57 CDT Yolande Lindsay MD [facility] CPT-12752 Level 3 Est. Patient 20:55:40 CDT Yolande Lindsay MD [facility] CPT-23951 Level 3 Est. Patient 12:42:38 PLANT PATHOLOGY TEACHER Yolande Lindsay MD [facility] CPT-73169 Level 3 Est. Patient 11:54:49 PLANT PATHOLOGY TEACHER Des Hines MD [facility] CPT-35526 Level 3 Est. Patient 17:06:38 CDT Dewayne PERAZA [facility] Procedures Code Procedure Name Date Entry Date Standard Description CPT-J2930 Solu Medrol 125 mg (Methyl Prednisolone Sodium Succinate) 13:19:02 CDT CPT-70421 Abx/Therapy Injection 13:19:02 CDT CPT-J2930 Solu Medrol 125 mg (Methyl Prednisolone Sodium Succinate) 13:05:03 CDT CPT-75838 Hip, complete, 2-3 views - XRAY USE ONLY 17:19:04 [employer]OLOG[employer] TE[employer] CPT-69202 Venipuncture Draw Fee 08:37:59 PLANT PATHOLOGY TEACHER CPT-68878 Liver Profile - LAB USE ONLY 08:37:59 PLANT PATHOLOGY TEACHER CPT-39419 Lipid - LAB USE ONLY 08:37:58 [employer]ANT PATHOLOGY TEACHER CPT-01935 First Vx - Ix admin via ID IM or jet injects without counseling by physician 11:52:31 CDT CPT-96248 Fluzone Preservative Free Intramuscular Suspension 11:52 :31 CDT CPT-94354 Foot, left, comp min 3V - XRAY USE ONLY 09:24:54 CDT CPT-25188 Abd single AP View - XRAY USE ONLY 11:16:17 CDT CPT-45926 T spine AP/ Lat - XRAY USE ONLY 09:34:21 CDT CPT-88265 Chest 2V Frontal and Lat - XRAY USE ONLY 10:48:51 CDT CPT-05595 LS spine comp w obliq 13:28:00 [employer]ANT PATHOLOGY TE[employer]ER CPT-J1040 Depo Medrol 80 mg (Methyl Prednisolone Acetate) 10:51: 28 [employer]ANT PATHOLOGY TEACHER CPT-J1100 Decadron 8mg (Dexamethasone) 10:51:28 PLANT PATHOLOGY TEACHER CPT-69430 Abx/Therapy Injection 10:51:28 PLANT PATHOLOGY TEACHER CPT-J1100 Decadron 8mg (Dexamethasone) 21:02:30 PLANT PATHOLOGY TEACHER CPT-J1040 Depo Medrol 80 mg (Methyl Prednisolone Acetate) 21:02: 30 [employer]ANT PATHOLOGY TEACHER [id number] Event Monitor - MC Transmission 09:12:32 CDT 08/06 [id number] Event Monitor - MC review and interp 09:12:32 CDT [id number] Event Monitor - MC recording 09:12:32 CDT CPT-25368 EKG Trac and Interp 16:50:22 CDT CPT-J1030 Depo Medrol 40 mg (Methyl Prednisolone Acetate) 17:05: 54 CDT CPT-J1100 Decadron 4mg (Dexamethasone) 17:05:54 CDT CPT-08208 Abx/Therapy Injection 17:05:54 CDT CPT-J1100 Decadron 4mg (Dexamethasone) 16:55:28 CDT CPT-J1030 Depo Medrol 40 mg (Methyl Prednisolone Acetate) 16:55: 28 CDT CPT-93884 Ankle Complete - Min 3V 15:58:50 CDT CPT-89667 Knee 3V 15:58:50 CDT CPT-15715 Hip comp min 2V 15:58:50 CDT CPT-J2270 Morphine Sulfate 10 mg 14:25:44 [employer]OLOGY TE[employer]ER CPT-J2550 Phenergan 12.5 mg (Promethazine) 14:25:44 [employer]ANT PATHOLOGY TEACHER CPT-79255 Abx/Therapy Injection 14:25:44 PLANT PATHOLOGY TEACHER CPT-J2550 Phenergan 12.5 mg (Promethazine) 14:08:03 [employer] CPT-J2270 Morphine Sulfate 10 mg 14:08:03 [employer] CPT-55462 Bladder Scan 15:00:38 CDT CPT-TCMM Transitional Care Mgmt-Moderate 09:52:22 CDT CPT-J1030 Depo Medrol 40 mg (Methyl Prednisolone Acetate) 10:55: 18 CDT CPT-J1100 Decadron 4mg (Dexamethasone) 10:55:18 CDT CPT-92190 Abx/Therapy Injection 10:55:18 CDT CPT-J1030 Depo Medrol 40 mg (Methyl Prednisolone Acetate) 10:22: 32 CDT CPT-J1100 Decadron 4mg (Dexamethasone) 10:22:32 CDT CPT-63115 Postop F/U Visit 14:37:13 CDT CPT-16059 Ankle Complete - Min 3V 17:11:58 CDT CPT-01350 Foot comp min 3V 17:11:58 CDT CPT-96215 Bladder Scan 09:56:58 CDT CPT-10633 Postop F/U Visit 09:56:58 CDT CPT-75065 Cystoscopy 09:02:42 CDT CPT-94695 Bladder Scan 09:02:42 CDT CPT-75666 Abd single AP View 16:00:35 CDT CPT-74750 Administration single or combination vaccine inc oral 10 :15:43 CDT CPT-48871 Influenza split virus > age 3 10:15:43 CDT CPT-40774 Nail Avulsion 09:24:57 CDT CPT-OV Office Visit 11:15:41 CDT CPT-96655 Abx/Therapy Injection 10:51:30 CDT CPT-J3301 Kenalog 40 mg (Triamcinolone Acetonide) 10:25:12 CDT CPT-J1100 Decadron 4mg (Dexamethasone) 10:25:12 CDT CPT-98363 Anoscopy diagnostic 10:36:12 CDT CPT-OV Office Visit 15:34:31 CDT CPT-25475 Abx/Therapy Injection 08:21:15 [employer] CPT-J1885 Toradol 60 mg (Ketorolac) 10:46:35 [employer] CPT-OV Office Visit 19:51:16 [employer] CPT-09734 Spec Collection and Handling Fee 14:34:18 [employer] CPT-PV Prev. Care Visit 14:19:18 [employer] CPT-01604 Postop F/U Visit 14:47:51 [employer] CPT-45421 Postop F/U Visit 15:15:14 [employer] CPT-60018 Postop F/U Visit 14:41:43 CDT CPT-64560 Postop F/U Visit 15:47:46 CDT CPT-OV Office Visit 15:27:23 CDT CPT-OV Office Visit 17:20:34 CDT CPT-76030 Abx/Therapy Injection 15:05:57 CDT CPT-J1100 Decadron 8mg (Dexamethasone) 14:44:57 CDT CPT-J1040 Depo Medrol 80 mg (Methyl Prednisolone Acetate) 14:44: 57 CDT CPT-JTINJ Joint Injection 10:17:37 CDT CPT-52941 Administration 2+ single or combination vaccines inc oral 13:01:46 [employer] CPT-07850 Administration single or combination vaccine inc oral 13 :01:46 [employer] CPT-96488 Pneumovax 13:01:46 [employer] CPT-94984 Influenza split virus > age 3 13:01:46 [employer] CPT-82322 Administration single or combination vaccine inc oral 08 :56:49 CDT CPT-45723 Tdap 08:56:49 CDT
--- OUTSIDE RECORDS SUMMARY | 2017-03-21 22:57 | XMS REPORT | Clinical Summary ---
Author Author Admin, MARGRET Organization [employer] Address Unknown Phone Unavailable Allergies, Adverse Reactions, Alerts Allergy Name Reaction Description Start Date Severity Status Provider VALENTIN Critical Active Rodrigo Montemayorl ELEMENTARY INSTRUCTIONAL COACH CHLORHEXIDINE GLUCONATE tongue and gums swollen Critical Active Hoa Kabaford RMA NORFLEX Rash Critical Active Rowenaina Farshadzell ELEMENTARY INSTRUCTIONAL COACH TRAZODONE HCL sees things Critical Active Dewayne [...] [facility] Old myocardial infarction Pelvic pain 789.09 Active Yolande Lindsay MD PhD Abdominal pain, other specified site; multiple sites Edema 782.3 Active Yolande Lindsay MD PhD Edema Rash 782.1 Active Yolande Lindsay MD PhD Rash and other nonspecific skin eruption Back pain, lumbar 724.2 Active Gab Padron MD Lumbago Cough 786.2 Active Jillina Tyrel ELEMENTARY INSTRUCTIONAL COACH Cough 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 Jillina Frazellilian ELEMENTARY INSTRUCTIONAL COACH 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 Anemia 285.9 Active Gab Padron MD Anemia, unspecified Conjunctivitis 372.30 Active Jillina Tyrel ELEMENTARY INSTRUCTIONAL COACH Conjunctivitis, unspecified Sinusitis 473.9 Active Jillina Frazell ELEMENTARY INSTRUCTIONAL COACH Unspecified sinusitis (chronic) Nonspecific syndrome suggestive of viral illness 079.99 Active Rodrigo Sarah APRN Unspecified viral infection Laryngitis 464.00 Active Jillina Tyrel ELEMENTARY INSTRUCTIONAL COACH Acute laryngitis without mention of obstruction Abdominal [...] 1/2 tab daily for 2 days PREDNISONE 62132749983 Active Gab Padron MD Active ZOFRAN ODT 4 MG TBDP 1 po q6hr PRN Nausea ONDANSETRON 51784924727 Active Rodrigo Sarah APRN Active IBUPROFEN 600 MG TAB 1 tablet by mouth every 6 hours for 7 days, then 1 tablet every 6 hours as needed. Take with food IBUPROFEN 26593209838 Active Jillnacho Frazellilian GAUTAM Active BACTRIM DS 800-160 MG TAB 1 tab by mouth twice daily TRIMETHOPRIM-SULFAMETHOXAZOLE 64132140775 No Longer Active Gab Padron MD Active ADVAIR DISKUS 250-50 MCG/DOSE AEPB 1 puff BID FLUTICASONE- SALMETEROL 70303604794 Active Rodrigo Sarah APRN Active LEVOTHYROXINE SODIUM 75 MCG TABS Take 1 tab daily LEVOTHYROXINE SODIUM 23407837771 No Longer Active Mariana HICKEYA Active SYNTHROID 88 MCG ORAL TABS Take one by mouth daily LEVOTHYROXINE SODIUM 67504976656 Active Mariana HICKEYA Active CHERATUSSIN AC 100-10 MG/5ML SYRP 1 tsp by mouth every 4 hours as needed for cough GUAIFENESIN-CODEINE 81705139232 No Longer Active Gab Padron MD Active POLYTRIM 13590-5.1 UNIT/ML-% SOLN 1 gtt to affected eye q3h x 7 days POLYMYXIN B-TRIMETHOPRIM 23013780700 No Longer Active Gab Padron MD Active FLUTICASONE PROPIONATE 50 MCG/ACT SUSP 1 to 2 sprays each nostril daily 04/21 FLUTICASONE PROPIONATE 24339328378 No Longer Active Gab Padron MD Active TRILEPTAL 600 MG TABS Take one 1 tablet in Am and 1 tablet at night OXCARBAZEPINE 40161822796 Active Gab Padron MD Active CEFDINIR 300 MG CAPS 1 po BID x 10 days CEFDINIR 45538161342 No Longer Active Rodrigo Sarah APRN Active CEFTIN 500 MG TAB 1 twice a day CEFUROXIME AXETIL 06256732649 No Longer Active Gab Padron MD Active AZITHROMYCIN 250 MG TABS 2 po qd x 1 day, then 1 po qd x 4 days AZITHROMYCIN 92096814861 No Longer Active Silvestrellnacho Sarah APRN Active CLARITIN 10 MG TAB 1 tablet by mouth daily as needed for allergies LORATADINE 31692709273 Active Silvestrellnacho Sarah APRN Active OXYCODONE HCL 5 MG ORAL CAPS 1 TAB PO Q HS OXYCODONE HCL 04735775923 No Longer Active Rodrigo Sarah APRN Active NIASPAN 500 MG ORAL CR-TABS 1 pill nightly x 1 week, then 2 pills nightly x 1 week, then 3 pills nightly x 1 week, then 4 pills nightly NIACIN (ANTIHYPERLIPIDEMIC) 46789962836 No Longer Active Silvestrebernabe Yenhossein ELEMENTARY INSTRUCTIONAL COACH Active NIACIN 500 MG TABS 1 pill by mouth nightly x 1 week, then 2 pills x 1 week, then 3 pills x 1 week, then 4 pills nightly - take after evening meal, with applesauce or an apple NIACIN 48221657103 No Longer Active Yolande Lindsay MD PhD Active FISH OIL 1000 MG CAPS 3 pills daily OMEGA-3 FATTY ACIDS 83732152413 Active Yolande Lindsay MD PhD Active TRIAMCINOLONE ACETONIDE 0.1 % CREA apply bid sparingly to rash TRIAMCINOLONE ACETONIDE 07086389978 Active Yolande Lindsay MD PhD Active FUROSEMIDE 20 MG TAB 1 tablet by mouth daily FUROSEMIDE 56370703642 Active Tisha Lambert APRN Active LISINOPRIL 20 MG ORAL TABS 1 tab by mouth daily LISINOPRIL 65086202164 Active Gab Padron MD Active FUROSEMIDE 20 MG TABS 1 pill by mouth daily, for edema FUROSEMIDE 39963483145 No Longer Active Yolande Lindsay MD PhD Active ATORVASTATIN CALCIUM 10 MG TABS 1 pill by mouth daily, for cholesterol 09/06 ATORVASTATIN CALCIUM 75301393958 Active Gab Padron MD Active CALCIUM 600+D PLUS MINERALS 600-400 MG-UNIT ORAL CHEW 1 tab by mouth daily CALCIUM CARBONATE-VIT D-MIN 80689557478 No Longer Active Yolande Lindsay MD PhD Active CYCLOBENZAPRINE HCL 10 MG TABS 1 tablet by mouth three times daily as needed for muscle spasm/pain CYCLOBENZAPRINE HCL 45683327489 Active Yolande Lindsay MD PhD Active ONDANSETRON 4 MG TBDP 1 q4h PRN nausea ONDANSETRON 75275668194 Active Yolande Lindsay MD PhD Active ADULT ASPIRIN EC LOW STRENGTH 81 MG TBEC Take 1 tablet by mouth daily 2014 ASPIRIN 05243559803 No Longer Active Yolande Lindsay MD PhD Active ZOFRAN ODT 4 MG TBDP 1 pill dissolved by mouth every 4 hours if needed for nausea ONDANSETRON 08440882759 No Longer Active Yolande Lindsay MD PhD Active CEFTIN 500 MG TAB 1 twice a day CEFUROXIME AXETIL 10852516349 No Longer Active Yolande Lindsay MD PhD Active ALBUTEROL SULFATE 0.083 % NEBU SOLN one vial per nebulizer every 4-6 hours as needed ALBUTEROL SULFATE 06779274428 No Longer Active Alexis Ordaz MD Active DOXYCYCLINE HYCLATE 100 MG CAP 1 cap by mouth twice daily DOXYCYCLINE HYCLATE 57885947142 No Longer Active Yolande Lindsay MD PhD Active CYCLOBENZAPRINE HCL 10 MG TABS 1/2 - 1 tab by mouth three times daily if needed for spasms/pain CYCLOBENZAPRINE HCL 44106198188 No Longer Active Yolande Lindsay MD PhD Active AZITHROMYCIN 250 MG TABS 2 pills on day 1, then 1 pill daily x 4 days AZITHROMYCIN 60695421646 No Longer Active Yolande Lindsay MD PhD Active XOPENEX 1.25 MG/3ML NEBU 1 neb every 4 hours if needed for cough/congestion LEVALBUTEROL HCL 92931372350 No Longer Active Yolande Lindsay MD PhD Active DOXYCYCLINE HYCLATE 100 MG TAB 1 tab twice a day for 14 days 2013 DOXYCYCLINE HYCLATE 77165791310 No Longer Active Yolande Lindsay MD PhD Active PREVACID 30 MG CPDR Take 1 tablet by mouth daily-PRN LANSOPRAZOLE 77435717754 No Longer Active Yolande Lindsay MD PhD Active PA VITAMIN D-3 2000 UNIT CAPS 1 CAP PO DAILY CHOLECALCIFEROL 94216799832 No Longer Active Yolande Lindsay MD PhD Active CEFDINIR 300 MG CAPS by mouth twice a day CEFDINIR 56622579032 No Longer Active Gab Padron MD Active TOPAMAX 50 MG TABS 1 PO twice daily TOPIRAMATE 76327345433 Active Yolande Lindsay MD PhD Active AZITHROMYCIN 250 MG TABS 2 po qd x 1 day, then 1 po qd x 4 days AZITHROMYCIN 79907302195 No Longer Active Yolande Lindsay MD PhD Active DICLOFENAC SODIUM 75 MG TBEC 1 tablet by q 12 hours PRN headaches DICLOFENAC SODIUM 90596247475 No Longer Active Yolande Lindsay MD PhD Active FLONASE 50 MCG/ACT SUSP 1 spray each nostril am and hs FLUTICASONE PROPIONATE 83793301904 No Longer Active Todd Callaway MD Active ANUSOL-HC 25 MG SUPPOSITORY 1 rectally twice a day as needed for hemorrhoids HYDROCORTISONE JAYDEN (RECTAL) 17372733215 No Longer Active Yolande Lindsay MD PhD Active ANUSOL-HC 25 MG SUPPOSITORY 1 suppository rectally each evening as needed for anal fissure HYDROCORTISONE JAYDEN (RECTAL) 42964149870 No Longer Active LONNIE Iglesias Active VALIUM 5 MG TAB 1 po 30 minutes prior to your MRI DIAZEPAM 98167205185 No Longer Active LONNIE Iglesias Active METHOCARBAMOL 750 MG TABS 1 PO QID PRN METHOCARBAMOL 84406683368 No Longer Active Daphne Wetzel APRN Active NITROSTAT 0.4 MG SUBL as directed NITROGLYCERIN 37378989554 No Longer Active Rodrigo Sarah APRN Active ROBAXIN-750 750 MG TABS 2 four times a day for 3 days as needed for muscle spasm, then 1 four times a day as needed METHOCARBAMOL 32103020897 No Longer Active Rodrigo Sarah APRN Active HYDROCODONE-ACETAMINOPHEN 5-325 MG TABS 1 q 4-6 hrs prn HYDROCODONE-ACETAMINOPHEN 16657774530 No Longer Active Rodrigo Sarah ELEMENTARY INSTRUCTIONAL COACH Active VERAPAMIL HCL CR 180 MG CR-TABS TAKE 1 TAB DAILY VERAPAMIL HCL 61993361530 No Longer Active Yolande Lindsay MD PhD Active BACTRIM DS 800-160 MG TAB 1 tab by mouth twice daily TRIMETHOPRIM-SULFAMETHOXAZOLE 38743648556 No Longer Active Yolande Lindsay MD PhD Active NEXIUM 40 MG PACK 1 by mouth daily ESOMEPRAZOLE MAGNESIUM 10796137941 No Longer Active Des Hines MD Active EPIPEN 2-CHARLETTE 0.3 MG/0.3ML OMARI as need for allergic reaction EPINEPHRINE 64542151232 Active Yolande Lindsay MD PhD Active NEXIUM 40 MG CPDR 1 PO Q D DAY ESOMEPRAZOLE MAGNESIUM 24679116439 No Longer Active Sadia Perry RN Active NEXIUM 40 MG PACK 1 by mouth daily NEXIUM 40 MG PACK ESOMEPRAZOLE MAGNESIUM Inactive VERAPAMIL HCL CR 180 MG CR-TABS TAKE 1 TAB DAILY VERAPAMIL HCL CR 180 MG CR-TABS VERAPAMIL HCL Inactive HYDROCODONE-ACETAMINOPHEN 5-325 MG TABS 1 q 4-6 hrs prn HYDROCODONE-ACETAMINOPHEN 5-325 MG TABS 450442 HYDROCODONE-ACETAMINOPHEN Inactive ROBAXIN-750 750 MG TABS 2 four times a day for 3 days as needed for muscle spasm, then 1 four times a day as needed ROBAXIN-750 750 MG TABS 064207 METHOCARBAMOL Inactive NITROSTAT 0.4 MG SUBL as directed NITROSTAT 0.4 MG SUBL NITROGLYCERIN Inactive METHOCARBAMOL 750 MG TABS 1 PO QID PRN METHOCARBAMOL 750 MG TABS 788651 METHOCARBAMOL Inactive VALIUM 5 MG TAB 1 po 30 minutes prior to your MRI VALIUM 5 MG TAB 720355 DIAZEPAM Inactive ANUSOL-HC 25 MG SUPPOSITORY 1 suppository rectally each evening as needed for anal fissure ANUSOL-HC 25 MG SUPPOSITORY 8576424 HYDROCORTISONE JAYDEN (RECTAL) Inactive ANUSOL-HC 25 MG SUPPOSITORY 1 rectally twice a day as needed for hemorrhoids ANUSOL-HC 25 MG SUPPOSITORY 1484869 HYDROCORTISONE JAYDEN (RECTAL) Inactive FLONASE 50 MCG/ACT SUSP 1 spray each nostril am and hs FLONASE 50 MCG/ACT SUSP FLUTICASONE PROPIONATE Inactive DICLOFENAC SODIUM 75 MG TBEC 1 tablet by q 12 hours PRN headaches DICLOFENAC SODIUM 75 MG TBEC 906703 DICLOFENAC SODIUM Inactive PA VITAMIN D-3 2000 UNIT CAPS 1 CAP PO DAILY PA VITAMIN D-3 2000 UNIT CAPS CHOLECALCIFEROL Inactive PREVACID 30 MG CPDR Take 1 tablet by mouth daily-PRN PREVACID 30 MG CPDR 862121 LANSOPRAZOLE Inactive DOXYCYCLINE HYCLATE 100 MG TAB 1 tab twice a day for 14 days 2013 DOXYCYCLINE HYCLATE 100 MG TAB 4043565 DOXYCYCLINE HYCLATE Inactive XOPENEX 1.25 MG/3ML NEBU 1 neb every 4 hours if needed for cough/congestion XOPENEX 1.25 MG/3ML NEBU 619324 LEVALBUTEROL HCL Inactive CYCLOBENZAPRINE HCL 10 MG TABS 1/2 - 1 tab by mouth three times daily if needed for spasms/pain CYCLOBENZAPRINE HCL 10 MG TABS 001759 CYCLOBENZAPRINE HCL Inactive ALBUTEROL SULFATE 0.083 % NEBU SOLN one vial per nebulizer every 4-6 hours as needed ALBUTEROL SULFATE 0.083 % NEBU SOLN 338209 ALBUTEROL SULFATE Inactive CEFTIN 500 MG TAB 1 twice a day CEFTIN 500 MG TAB 326523 CEFUROXIME AXETIL Inactive ZOFRAN ODT 4 MG TBDP 1 pill dissolved by mouth every 4 hours if needed for nausea ZOFRAN ODT 4 MG TBDP 851064 ONDANSETRON Inactive ADULT ASPIRIN EC LOW STRENGTH 81 MG TBEC Take 1 tablet by mouth daily 2014 ADULT ASPIRIN EC LOW STRENGTH 81 MG TBEC 088654 ASPIRIN Inactive CALCIUM 600+D PLUS MINERALS 600-400 [...] or an apple NIACIN 500 MG TABS 810799 NIACIN Inactive NIASPAN 500 MG ORAL CR-TABS 1 pill nightly x 1 week, then 2 pills nightly x 1 week, then 3 pills nightly x 1 week, then 4 pills nightly NIASPAN 500 MG ORAL CR-TABS NIACIN (ANTIHYPERLIPIDEMIC) Inactive OXYCODONE HCL 5 MG ORAL CAPS 1 TAB PO Q HS OXYCODONE HCL 5 MG ORAL CAPS 4032116 OXYCODONE HCL Inactive FLUTICASONE PROPIONATE 50 MCG/ACT SUSP 1 to 2 sprays each nostril daily 04/21 FLUTICASONE PROPIONATE 50 MCG/ACT SUSP 470562 FLUTICASONE PROPIONATE Inactive POLYTRIM 90742-2.1 UNIT/ML-% SOLN 1 gtt to affected eye q3h x 7 days POLYTRIM 82765-6.1 UNIT/ML-% SOLN 168188 POLYMYXIN B- TRIMETHOPRIM Inactive CHERATUSSIN AC 100-10 MG/5ML SYRP 1 tsp by mouth every 4 hours as needed for cough CHERATUSSIN AC 100-10 MG/5ML SYRP 269627 GUAIFENESIN-CODEINE Inactive LEVOTHYROXINE SODIUM 75 MCG TABS Take 1 tab daily LEVOTHYROXINE SODIUM 75 MCG TABS 067656 LEVOTHYROXINE SODIUM Inactive BACTRIM DS 800-160 MG TAB 1 tab by mouth twice daily BACTRIM DS 800-160 MG TAB 19820606 TRIMETHOPRIM-SULFAMETHOXAZOLE Inactive AZITHROMYCIN 250 MG TABS 2 po qd x 1 day, then 1 po qd x 4 days AZITHROMYCIN 250 MG TABS 1031611 AZITHROMYCIN Inactive CEFDINIR 300 MG CAPS by mouth twice a day CEFDINIR 300 MG CAPS 20020708 CEFDINIR Inactive AZITHROMYCIN 250 MG TABS 2 pills on day 1, then 1 pill daily x 4 days AZITHROMYCIN 250 MG TABS 2802035 AZITHROMYCIN Inactive DOXYCYCLINE HYCLATE 100 MG CAP 1 cap by mouth twice daily DOXYCYCLINE HYCLATE 100 MG CAP 3111684 DOXYCYCLINE HYCLATE Inactive FUROSEMIDE 20 MG TABS 1 pill by mouth daily, for edema FUROSEMIDE 20 MG TABS 788815 FUROSEMIDE Inactive AZITHROMYCIN 250 MG TABS 2 po qd x 1 day, then 1 po qd x 4 days AZITHROMYCIN 250 MG TABS 1628644 AZITHROMYCIN Inactive CEFTIN 500 MG TAB 1 twice a day CEFTIN 500 MG TAB 927909 CEFUROXIME AXETIL Inactive CEFDINIR 300 MG CAPS [...] Fluvirin, Fluarix, Agriflu(>=18 yo)) Fluzone (>3 yrs.) [VSZ472] Influenza, seasonal, injectable influenza immunization (Flu Vax) has been administered Influenza - Unspecified Formulation [CVX88] influenza virus vaccine, unspecified formulation pneumococcal immunization administered Pneumovax 23 [CVX33] pneumococcal polysaccharide vaccine, 23 valent Seasonal influenza vaccine, injectable, containing preservative, for > 3 years old (Afluria, FluLaval, Fluzone, Fluvirin, Fluarix, Agriflu(>=18 yo)) Fluzone (>3 yrs.) [CNX970] Influenza, seasonal, injectable dT (Diphtheria and Tetanus) booster given given Td(adult) unspecified formulation Boostrix (Tetanus toxoid, reduced diphtheria toxoid and acellular pertussis vaccine, adsorbed), booster Boostrix [MRZ858] tetanus toxoid, reduced diphtheria toxoid, and acellular [...] Panel - Chemistry sodium, serum 142 mmol/L 791-289 2009/06/30 potassium, serum 4.4 mmol/L 3.5-5.2 chloride, serum 108 mmol/L 98-107 carbon dioxide, venous blood 25.1 mmol/L 21.0-32.0 blood glucose 82 mg/dL 65-110 calcium, serum 9.1 mg/dL 8.5-10.1 urea nitrogen, blood 18 mg/dL 7-18 creatinine, serum 1.31 mg/dL 0.55-1.30 Lab Report: [facility] Advanced Lipid and Inlammation Panel /49489 - Chemistry cholesterol, serum 148 mg/dL 449-419 5953/09/02 HDL cholesterol, serum 55 mg/dL > OR=46 [...] (L) - Chemistry sodium, serum 145 mmol/L 613-911 3031/09/02 potassium, serum 4.6 mmol/L 3.5-5.2 chloride, serum [...] Rate - Chemistry sodium, serum 139 mmol/L 961-553 8126/03/24 carbon dioxide, venous blood 22.4 mmol/L 21.0-32.0 [...] ... - Chemistry sodium, serum 143 mmol/L 007-904 3985/05/02 carbon dioxide, venous blood 25.6 mmol/L 21.0-32.0 [...] Negative mg/dL Negative sodium, serum 142 mmol/L 908-422 0214/07/18 carbon dioxide, venous blood 27.8 mmol/L 21.0-32.0 [...] mg/dL Encounters Code Encounter Date Provider Facility CPT-20964 Level 3 Est. Patient 11:01:51 CDT Gab Padron MD [facility] CPT-97943 Level 3 Est. Patient 15:27:02 CDT Jared Og MD [facility] CPT-56593 Level 4 Est. Patient 09:25:27 CDT Gab Padron MD [facility]-01150 Level 3 Est. Patient 10:29:41 CDT Rodrigo Sarah [facility]-93679 Level 4 Est. Patient 17:51:05 CDT Gab Padron MD [facility]-13169 Level 3 Est. Patient 14:18:08 CDT Gab Padron MD [facility]-31904 Level 4 Est. Patient 10:18:54 CDT Gab Padron MD [facility]-37188 Level 3 Est. Patient 11:30:07 CDT Rodrigo Sarah [facility] CPT-64756 Level 4 Est. Patient 21:02:30 CSR Gab Padron MD [facility]-50878 Level 3 Est. Patient 11:02:19 CSR Gab Padron MD [facility] CPT-38034 Level 4 Est. Patient 22:24:31 CSR Gab Padron MD [facility] CPT-09024 Level 3 Est. Patient 18:33:46 CSR Gab Padron MD [facility] CPT-07459 Level 3 Est. Patient 16:19:11 CDT Yolande Lindsay MD [facility]-58811 Level 3 Est. Patient 18:59:14 CDT Yolande Lindsay MD [facility]-42232 Level 4 Est. Patient 21:29:26 CDT Yolande Lindsay MD PhD [facility] CPT-46398 Level 3 Est. Patient 07:37:45 CDT Yolande Lindsay MD [facility]-60865 Level 3 Est. Patient 17:03:46 CDT Yolande Lindsay MD [facility]-99183 Level 4 Est. Patient 20:02:13 CSR Yolande Lindsay MD [facility]-64072 Level 3 Est. Patient 16:02:07 CSR Alexis Ordaz MD [facility]-75334 Level 3 Est. Patient 12:41:24 CSR Yolande Lindsay MD [facility]-12983 Level 3 Est. Patient 15:41:20 CSR Yolande Lindsay MD [facility]-97624 Level 3 Est. Patient 13:20:02 CSR Yolande Lindsay MD [facility]-24857 Level 3 Est. Patient 15:00:38 CDT Jared Og MD [facility]-96838 Level 3 Est. Patient 10:22:32 CDT Yolande Lindsay MD [facility]-80881 Level 3 Est. Patient 17:12:58 CDT Yolande Lindsay MD [facility] CPT-25795 Level 4 Est. Patient 13:30:58 CDT Yolande Lindsay MD [facility] CPT-59541 Level 4 New Patient 09:02:42 CDT Jared Og MD [facility]-49853 Level 3 Est. Patient 08:19:07 CDT Yolande Lindsay MD [facility]-04325 Level 3 Est. Patient 12:00:13 CSR Gab Padron MD [facility]-85683 Level 3 Est. Patient 16:15:23 CSR Yolande Lindsay MD [facility]-37979 Level 2 Est. Patient 19:47:15 CDT Yolande Lindsay MD [facility]-54038 Level 3 Est. Patient 21:38:31 CDT Yolande Lindsay MD [facility]-09724 Level 3 Est. Patient 10:25:12 CDT Adiel PERAZA [facility]-53617 Level 4 Est. Patient 10:51:58 CDT Yolande Lindsay MD [facility]-05958 Level 3 Est. Patient 14:04:55 CSR Rodrigo Sarah [facility]-67332 Level 3 Est. Patient 10:46:35 CSR Rodrigo Sarah [facility]-45652 Level 3 Est. Patient 14:24:37 CSR Yolande Lindsay MD [facility]-91992 Level 3 Est. Patient 17:41:58 CSR Yolande Lindsay MD [facility]-82449 Level 2 Est. Patient 22:01:41 CSR Rodrigo Sarah [facility]-90161 Level 2 Est. Patient 22:01:11 CSR Rodrigo Sarah [facility]-19662 Level 3 Est. Patient 10:12:29 CSR Rodrigo Sarah [facility]-95841 Level 3 Est. Patient 11:05:44 CDT Alexis Ordaz MD [facility]39982 Level 3 Est. Patient 14:57:20 CDT Yolande Lindsay MD [facility]-72462 Level 3 Est. Patient 14:40:57 CDT Yolande Lindsay MD PhD [facility] CPT-54640 Level 3 Est. Patient 20:55:40 CDT Yolande Lindsay MD PhD [facility] CPT-31205 Level 3 Est. Patient 12:42:38 CSR Yolande Lindsay MD PhD [facility] CPT-34427 Level 3 Est. Patient 11:54:49 CSR Des Hines MD [facility] CPT-85493 Level 3 Est. Patient 17:06:38 CDT Dewayne PERAZA [facility] Procedures Code Procedure Name Date Entry Date Standard Description CPT-48279 Foot, left, comp min 3V - XRAY USE ONLY 09:24:54 CDT CPT-11807 Abd single AP View - XRAY USE ONLY 11:16:17 CDT CPT-17437 T spine AP/ Lat - XRAY USE ONLY 09:34:21 CDT CPT-21621 Chest 2V Frontal and Lat - XRAY USE ONLY 10:48:51 CDT CPT-37391 LS spine comp w obliq 13:28:00 CSR CPT-J1040 Depo Medrol 80 mg (Methyl Prednisolone Acetate) 10:51: 28 CSR CPT-J1100 Decadron 8mg (Dexamethasone) 10:51:28 CSR CPT-05234 Abx/Therapy Injection 10:51:28 CSR CPT-J1100 Decadron 8mg (Dexamethasone) 21:02:30 CSR CPT-J1040 Depo Medrol 80 mg (Methyl Prednisolone Acetate) 21:02: 30 CSR [id number] Event Monitor - MC Transmission 09:12:32 CDT 08/06 [id number] Event Monitor - MC review and interp 09:12:32 CDT [id number] Event Monitor - MC recording 09:12:32 CDT CPT-07125 EKG Trac and Interp 16:50:22 CDT CPT-J1030 Depo Medrol 40 mg (Methyl Prednisolone Acetate) 17:05: 54 CDT CPT-J1100 Decadron 4mg (Dexamethasone) 17:05:54 CDT CPT-73886 Abx/Therapy Injection 17:05:54 CDT CPT-J1100 Decadron 4mg (Dexamethasone) 16:55:28 CDT CPT-J1030 Depo Medrol 40 mg (Methyl Prednisolone Acetate) 16:55: 28 CDT CPT-92929 Ankle Complete - Min 3V 15:58:50 CDT CPT-45529 Knee 3V 15:58:50 CDT CPT-57051 Hip comp min 2V 15:58:50 CDT CPT-J2270 Morphine Sulfate 10 mg 14:25:44 CSR CPT-J2550 Phenergan 12.5 mg (Promethazine) 14:25:44 CSR CPT-05450 Abx/Therapy Injection 14:25:44 CSR CPT-J2550 Phenergan 12.5 mg (Promethazine) 14:08:03 CSR CPT-J2270 Morphine Sulfate 10 mg 14:08:03 CSR CPT-73574 Bladder Scan 15:00:38 CDT CPT-TCMM Transitional Care Mgmt-Moderate 09:52:22 CDT CPT-J1030 Depo Medrol 40 mg (Methyl Prednisolone Acetate) 10:55: 18 CDT CPT-J1100 Decadron 4mg (Dexamethasone) 10:55:18 CDT CPT-18042 Abx/Therapy Injection 10:55:18 CDT CPT-J1030 Depo Medrol 40 mg (Methyl Prednisolone Acetate) 10:22: 32 CDT CPT-J1100 Decadron 4mg (Dexamethasone) 10:22:32 CDT CPT-67645 Postop F/U Visit 14:37:13 CDT CPT-23456 Ankle Complete - Min 3V 17:11:58 CDT CPT-90982 Foot comp min 3V 17:11:58 CDT CPT-47560 Bladder Scan 09:56:58 CDT CPT-28762 Postop F/U Visit 09:56:58 CDT CPT-82738 Cystoscopy 09:02:42 CDT CPT-86117 Bladder Scan 09:02:42 CDT CPT-49550 Abd single AP View 16:00:35 CDT CPT-20119 Administration single or combination vaccine inc oral 10 :15:43 CDT CPT-56989 Influenza split virus > age 3 10:15:43 CDT CPT-38485 Nail Avulsion 09:24:57 CDT CPT-OV Office Visit 11:15:41 CDT CPT-30623 Abx/Therapy Injection 10:51:30 CDT CPT-J3301 Kenalog 40 mg (Triamcinolone Acetonide) 10:25:12 CDT CPT-J1100 Decadron 4mg (Dexamethasone) 10:25:12 CDT CPT-51951 Anoscopy diagnostic 10:36:12 CDT CPT-OV Office Visit 15:34:31 CDT CPT-34041 Abx/Therapy Injection 08:21:15 CSR CPT-J1885 Toradol 60 mg (Ketorolac) 10:46:35 CSR CPT-OV Office Visit 19:51:16 CSR CPT-16409 Spec Collection and Handling Fee 14:34:18 CSR CPT-PV Prev. Care Visit 14:19:18 CSR CPT-15707 Postop F/U Visit 14:47:51 CSR CPT-53458 Postop F/U Visit 15:15:14 CSR CPT-83382 Postop F/U Visit 14:41:43 CDT CPT-57906 Postop F/U Visit 15:47:46 CDT CPT-OV Office Visit 15:27:23 CDT CPT-OV Office Visit 17:20:34 CDT CPT-67587 Abx/Therapy Injection 15:05:57 CDT CPT-J1100 Decadron 8mg (Dexamethasone) 14:44:57 CDT CPT-J1040 Depo Medrol 80 mg (Methyl Prednisolone Acetate) 14:44: 57 CDT CPT-JTINJ Joint Injection 10:17:37 CDT CPT-85038 Administration 2+ single or combination vaccines inc oral 13:01:46 CSR CPT-72863 Administration single or combination vaccine inc oral 13 :01:46 CSR CPT-78837 Pneumovax 13:01:46 CSR CPT-84514 Influenza split virus > age 3 13:01:46 CSR CPT-26083 Administration single or combination vaccine inc oral 08 :56:49 CDT CPT-82235 Tdap 08:56:49 CDT
--- OUTSIDE RECORDS SUMMARY | 2017-03-21 22:59 | XMS REPORT | Clinical Summary ---
Author Author Admin, MARGRET Organization [email or web address] Address Unknown Phone Unavailable Allergies, Adverse Reactions, Alerts Allergy Name Reaction Description Start Date Severity Status Provider VALENTIN Critical Active Rodrigo Montemayorl MANUFACTURER REPRESENTATIVE CHLORHEXIDINE GLUCONATE tongue and gums swollen Critical Active Hoa Kabaford RMA NORFLEX Rash Critical Active Silvestrellina Frazell MANUFACTURER REPRESENTATIVE TRAZODONE HCL sees things Critical Active Dewayne [...] of 412 Active [facility] Old myocardial infarction Pelvic pain 789.09 Active Yolande Lindsay MD PhD Abdominal pain, other specified site; multiple sites Edema 782.3 Active Yolande Lindsay MD PhD Edema Rash 782.1 Active Yolande Lindsay MD PhD Rash and other nonspecific skin eruption Back pain, lumbar 724.2 Active Gab Padron MD Lumbago Cough 786.2 Active Jillina Tyrel MANUFACTURER REPRESENTATIVE Cough 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 Jillina Frazellilian MANUFACTURER REPRESENTATIVE 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 Anemia 285.9 Active Gab Padron MD Anemia, unspecified Conjunctivitis 372.30 Active Jillina Tyrel MANUFACTURER REPRESENTATIVE Conjunctivitis, unspecified Sinusitis 473.9 Active Jillina Frazell MANUFACTURER REPRESENTATIVE Unspecified sinusitis (chronic) Nonspecific syndrome suggestive of [...] MCG/DOSE AEPB 1 puff BID FLUTICASONE- SALMETEROL 49259084011 Active Rodrigo Sarah MANUFACTURER REPRESENTATIVE Active LEVOTHYROXINE SODIUM 75 MCG TABS Take 1 tab daily LEVOTHYROXINE SODIUM 35001332766 No Longer Active Mariana Cuadra RMA Active SYNTHROID 88 MCG ORAL TABS Take one by mouth daily LEVOTHYROXINE SODIUM 97098620121 Active Mariana Cuadra RMA Active CHERATUSSIN AC 100-10 MG/5ML SYRP 1 tsp by mouth every 4 hours as needed for cough GUAIFENESIN-CODEINE 06210941896 No Longer Active Gab Padron MD Active POLYTRIM 90235-6.1 UNIT/ML-% SOLN 1 gtt to affected eye q3h x 7 days POLYMYXIN B-TRIMETHOPRIM 50633210283 No Longer Active Gab Padron MD Active FLUTICASONE PROPIONATE 50 MCG/ACT SUSP 1 to 2 sprays each nostril daily 04/21 FLUTICASONE PROPIONATE 44041819963 No Longer Active Gab Padron MD Active TRILEPTAL 600 MG TABS Take one 1 tablet in Am and 1 tablet at night OXCARBAZEPINE 18786895753 Active Gab Padron MD Active CEFDINIR 300 MG CAPS 1 po BID x 10 days CEFDINIR 04562688376 No Longer Active Rodrigo Sarah APRN Active CEFTIN 500 MG TAB 1 twice a day CEFUROXIME AXETIL 07899219132 No Longer Active Gab Padron MD Active AZITHROMYCIN 250 MG TABS 2 po qd x 1 day, then 1 po qd x 4 days AZITHROMYCIN 49782860941 No Longer Active Rodrigo Sarah APRN Active CLARITIN 10 MG TAB 1 tablet by mouth daily as needed for allergies LORATADINE 61202607438 Active Silvestrellnacho Sarah APRN Active OXYCODONE HCL 5 MG ORAL CAPS 1 TAB PO Q HS OXYCODONE HCL 67532146823 No Longer Active Rodrigo Sarah APRN Active NIASPAN 500 MG ORAL CR-TABS 1 pill nightly x 1 week, then 2 pills nightly x 1 week, then 3 pills nightly x 1 week, then 4 pills nightly NIACIN (ANTIHYPERLIPIDEMIC) 65919907718 No Longer Active Rodrigo Sarah APRN Active NIACIN 500 MG TABS 1 pill by mouth nightly x 1 week, then 2 pills x 1 week, then 3 pills x 1 week, then 4 pills nightly - take after evening meal, with applesauce or an apple NIACIN 42332722739 No Longer Active Yolande Lindsay MD PhD Active FISH OIL 1000 MG CAPS 3 pills daily OMEGA-3 FATTY ACIDS 44609186836 Active Yolande Lindsay MD PhD Active TRIAMCINOLONE ACETONIDE 0.1 % CREA apply bid sparingly to rash TRIAMCINOLONE ACETONIDE 83728969733 Active Yolande Lindsay MD PhD Active FUROSEMIDE 20 MG TAB 1 tablet by mouth daily FUROSEMIDE 48756375900 Active Tisha Lambert APRN Active LISINOPRIL 20 MG ORAL TABS 1 tab by mouth daily LISINOPRIL 62377134427 Active Gab Padron MD Active FUROSEMIDE 20 MG TABS 1 pill by mouth daily, for edema FUROSEMIDE 99845326285 No Longer Active Yolande Lindsay MD PhD Active ATORVASTATIN CALCIUM 10 MG TABS 1 pill by mouth daily, for cholesterol 09/06 ATORVASTATIN CALCIUM 03251285840 Active Tisha Lambert APRN Active CALCIUM 600+D PLUS MINERALS 600-400 MG-UNIT ORAL CHEW 1 tab by mouth daily CALCIUM CARBONATE-VIT D-MIN 38110526126 No Longer Active Yolande Lindsay MD PhD Active CYCLOBENZAPRINE HCL 10 MG TABS 1 tablet by mouth three times daily as needed for muscle spasm/pain CYCLOBENZAPRINE HCL 26142160826 Active Yolande Lindsay MD PhD Active ONDANSETRON 4 MG TBDP 1 q4h PRN nausea ONDANSETRON 34564982131 Active Yolande Lindsay MD PhD Active ADULT ASPIRIN EC LOW STRENGTH 81 MG TBEC Take 1 tablet by mouth daily 2014 ASPIRIN 73503664551 No Longer Active Yolande Lindsay MD PhD Active ZOFRAN ODT 4 MG TBDP 1 pill dissolved by mouth every 4 hours if needed for nausea ONDANSETRON 74843284521 No Longer Active Yolande Lindsay MD PhD Active CEFTIN 500 MG TAB 1 twice a day CEFUROXIME AXETIL 09837737415 No Longer Active Yolande Lindsay MD PhD Active ALBUTEROL SULFATE 0.083 % NEBU SOLN one vial per nebulizer every 4-6 hours as needed ALBUTEROL SULFATE 83641697639 No Longer Active Alexis Ordaz MD Active DOXYCYCLINE HYCLATE 100 MG CAP 1 cap by mouth twice daily DOXYCYCLINE HYCLATE 21241520466 No Longer Active Yolande Lindsay MD PhD Active CYCLOBENZAPRINE HCL 10 MG TABS 1/2 - 1 tab by mouth three times daily if needed for spasms/pain CYCLOBENZAPRINE HCL 77072961311 No Longer Active Yolande Lindsay MD PhD Active AZITHROMYCIN 250 MG TABS 2 pills on day 1, then 1 pill daily x 4 days AZITHROMYCIN 80480016011 No Longer Active Yolande Lindsay MD PhD Active XOPENEX 1.25 MG/3ML NEBU 1 neb every 4 hours if needed for cough/congestion LEVALBUTEROL HCL 90327481360 No Longer Active Yolande Lindsay MD PhD Active DOXYCYCLINE HYCLATE 100 MG TAB 1 tab twice a day for 14 days 2013 DOXYCYCLINE HYCLATE 17702309467 No Longer Active Yolande Lindsay MD PhD Active PREVACID 30 MG CPDR Take 1 tablet by mouth daily-PRN LANSOPRAZOLE 14082660538 No Longer Active Yolande Lindsay MD PhD Active PA VITAMIN D-3 2000 UNIT CAPS 1 CAP PO DAILY CHOLECALCIFEROL 78340917734 No Longer Active Yolande Lindsay MD PhD Active CEFDINIR 300 MG CAPS by mouth twice a day CEFDINIR 93115474049 No Longer Active Gab Padron MD Active TOPAMAX 50 MG TABS 1 PO twice daily TOPIRAMATE 61152192856 Active Yolande Lindsay MD PhD Active AZITHROMYCIN 250 MG TABS 2 po qd x 1 day, then 1 po qd x 4 days AZITHROMYCIN 73493249695 No Longer Active Yolande Lindsay MD PhD Active DICLOFENAC SODIUM 75 MG TBEC 1 tablet by q 12 hours PRN headaches DICLOFENAC SODIUM 52130548569 No Longer Active Yolande Lindsay MD PhD Active FLONASE 50 MCG/ACT SUSP 1 spray each nostril am and hs FLUTICASONE PROPIONATE 08534735369 No Longer Active Todd Callaway MD Active ANUSOL-HC 25 MG SUPPOSITORY 1 rectally twice a day as needed for hemorrhoids HYDROCORTISONE JAYDEN (RECTAL) 85594025411 No Longer Active Yolande Lindsay MD PhD Active ANUSOL-HC 25 MG SUPPOSITORY 1 suppository rectally each evening as needed for anal fissure HYDROCORTISONE JAYDEN (RECTAL) 23338992990 No Longer Active LONNIE Iglesias Active VALIUM 5 MG TAB 1 po 30 minutes prior to your MRI DIAZEPAM 61395391053 No Longer Active LONNIE Iglesias Active METHOCARBAMOL 750 MG TABS 1 PO QID PRN METHOCARBAMOL 61434714592 No Longer Active Daphne Wetzel APRN Active NITROSTAT 0.4 MG SUBL as directed NITROGLYCERIN 53716890232 No Longer Active Rodrigo Sarah APRN Active ROBAXIN-750 750 MG TABS 2 four times a day for 3 days as needed for muscle spasm, then 1 four times a day as needed METHOCARBAMOL 31089330891 No Longer Active Rodrigo Sarah APRN Active HYDROCODONE-ACETAMINOPHEN 5-325 MG TABS 1 q 4-6 hrs prn HYDROCODONE-ACETAMINOPHEN 08760478620 No Longer Active Rodrigo Sarah APRN Active VERAPAMIL HCL CR 180 MG CR-TABS TAKE 1 TAB DAILY VERAPAMIL HCL 37190685995 No Longer Active Yolande Lindsay MD PhD Active BACTRIM DS 800-160 MG TAB 1 tab by mouth twice daily TRIMETHOPRIM-SULFAMETHOXAZOLE 21882234506 No Longer Active Yolande Lindsay MD PhD Active NEXIUM 40 MG PACK 1 by mouth daily ESOMEPRAZOLE MAGNESIUM 76135526217 No Longer Active Des Hines MD Active EPIPEN 2-CHARLETTE 0.3 MG/0.3ML OMARI as need for allergic reaction EPINEPHRINE 13230764463 Active Yolande Lindsay MD PhD Active NEXIUM 40 MG CPDR 1 PO Q D DAY ESOMEPRAZOLE MAGNESIUM 52197177619 No Longer Active Sadia Morochoten RN Active NEXIUM 40 MG PACK 1 by mouth daily NEXIUM 40 MG PACK ESOMEPRAZOLE MAGNESIUM Inactive VERAPAMIL HCL CR 180 MG CR-TABS TAKE 1 TAB DAILY VERAPAMIL HCL CR 180 MG CR-TABS VERAPAMIL HCL Inactive HYDROCODONE-ACETAMINOPHEN 5-325 MG TABS 1 q 4-6 hrs prn HYDROCODONE-ACETAMINOPHEN 5-325 MG TABS 888143 HYDROCODONE-ACETAMINOPHEN Inactive ROBAXIN-750 750 MG TABS 2 four times a day for 3 days as needed for muscle spasm, then 1 four times a day as needed ROBAXIN-750 750 MG TABS 800345 METHOCARBAMOL Inactive NITROSTAT 0.4 MG SUBL as directed NITROSTAT 0.4 MG SUBL NITROGLYCERIN Inactive METHOCARBAMOL 750 MG TABS 1 PO QID PRN METHOCARBAMOL 750 MG TABS 479172 METHOCARBAMOL Inactive VALIUM 5 MG TAB 1 po 30 minutes prior to your MRI VALIUM 5 MG TAB 358500 DIAZEPAM Inactive ANUSOL-HC 25 MG SUPPOSITORY 1 suppository rectally each evening as needed for anal fissure ANUSOL-HC 25 MG SUPPOSITORY 7100231 HYDROCORTISONE JAYDEN (RECTAL) Inactive ANUSOL-HC 25 MG SUPPOSITORY 1 rectally twice a day as needed for hemorrhoids ANUSOL-HC 25 MG SUPPOSITORY 3332644 HYDROCORTISONE JAYDEN (RECTAL) Inactive FLONASE 50 MCG/ACT SUSP 1 spray each nostril am and hs FLONASE 50 MCG/ACT SUSP FLUTICASONE PROPIONATE Inactive DICLOFENAC SODIUM 75 MG TBEC 1 tablet by q 12 hours PRN headaches DICLOFENAC SODIUM 75 MG TBEC 785562 DICLOFENAC SODIUM Inactive PA VITAMIN D-3 2000 UNIT CAPS 1 CAP PO DAILY PA VITAMIN D-3 2000 UNIT CAPS CHOLECALCIFEROL Inactive PREVACID 30 MG CPDR Take 1 tablet by mouth daily-PRN PREVACID 30 MG CPDR 855394 LANSOPRAZOLE Inactive DOXYCYCLINE HYCLATE 100 MG TAB 1 tab twice a day for 14 days 2013 DOXYCYCLINE HYCLATE 100 MG TAB 0012914 DOXYCYCLINE HYCLATE Inactive XOPENEX 1.25 MG/3ML NEBU 1 neb every 4 hours if needed for cough/congestion XOPENEX 1.25 MG/3ML NEBU 575119 LEVALBUTEROL HCL Inactive CYCLOBENZAPRINE HCL 10 MG TABS 1/2 - 1 tab by mouth three times daily if needed for spasms/pain CYCLOBENZAPRINE HCL 10 MG TABS 260473 CYCLOBENZAPRINE HCL Inactive ALBUTEROL SULFATE 0.083 % NEBU SOLN one vial per nebulizer every 4-6 hours as needed ALBUTEROL SULFATE 0.083 % NEBU SOLN 677198 ALBUTEROL SULFATE Inactive CEFTIN 500 MG TAB 1 twice a day CEFTIN 500 MG TAB 101548 CEFUROXIME AXETIL Inactive ZOFRAN ODT 4 MG TBDP 1 pill dissolved by mouth every 4 hours if needed for nausea ZOFRAN ODT 4 MG TBDP 542893 ONDANSETRON Inactive ADULT ASPIRIN EC LOW STRENGTH 81 MG TBEC Take 1 tablet by mouth daily 2014 ADULT ASPIRIN EC LOW STRENGTH 81 MG TBEC 297839 ASPIRIN Inactive CALCIUM 600+D PLUS MINERALS 600-400 [...] or an apple NIACIN 500 MG TABS 370183 NIACIN Inactive NIASPAN 500 MG ORAL CR-TABS 1 pill nightly x 1 week, then 2 pills nightly x 1 week, then 3 pills nightly x 1 week, then 4 pills nightly NIASPAN 500 MG ORAL CR-TABS NIACIN (ANTIHYPERLIPIDEMIC) Inactive OXYCODONE HCL 5 MG ORAL CAPS 1 TAB PO Q HS OXYCODONE HCL 5 MG ORAL CAPS 3093960 OXYCODONE HCL Inactive FLUTICASONE PROPIONATE 50 MCG/ACT SUSP 1 to 2 sprays each nostril daily 04/21 FLUTICASONE PROPIONATE 50 MCG/ACT SUSP 236303 FLUTICASONE PROPIONATE Inactive POLYTRIM 91950-3.1 UNIT/ML-% SOLN 1 gtt to affected eye q3h x 7 days POLYTRIM 87151-9.1 UNIT/ML-% SOLN 152028 POLYMYXIN B- TRIMETHOPRIM Inactive CHERATUSSIN AC 100-10 MG/5ML SYRP 1 tsp by mouth every 4 hours as needed for cough CHERATUSSIN AC 100-10 MG/5ML SYRP 637568 GUAIFENESIN-CODEINE Inactive LEVOTHYROXINE SODIUM 75 MCG TABS Take 1 tab daily LEVOTHYROXINE SODIUM 75 MCG TABS 099545 LEVOTHYROXINE SODIUM Inactive BACTRIM DS 800-160 MG TAB 1 tab by mouth twice daily BACTRIM DS 800-160 MG TAB 626922 TRIMETHOPRIM-SULFAMETHOXAZOLE Inactive AZITHROMYCIN 250 MG TABS 2 po qd x 1 day, then 1 po qd x 4 days AZITHROMYCIN 250 MG TABS 1512129 AZITHROMYCIN Inactive CEFDINIR 300 MG CAPS by mouth twice a day CEFDINIR 300 MG CAPS 107405 CEFDINIR Inactive AZITHROMYCIN 250 MG TABS 2 pills on day 1, then 1 pill daily x 4 days AZITHROMYCIN 250 MG TABS 4768839 AZITHROMYCIN Inactive DOXYCYCLINE HYCLATE 100 MG CAP 1 cap by mouth twice daily DOXYCYCLINE HYCLATE 100 MG CAP 7103536 DOXYCYCLINE HYCLATE Inactive FUROSEMIDE 20 MG TABS 1 pill by mouth daily, for edema FUROSEMIDE 20 MG TABS 418272 FUROSEMIDE Inactive AZITHROMYCIN 250 MG TABS 2 po qd x 1 day, then 1 po qd x 4 days AZITHROMYCIN 250 MG TABS 2939167 AZITHROMYCIN Inactive CEFTIN 500 MG TAB 1 twice a day CEFTIN 500 MG TAB 526531 CEFUROXIME AXETIL Inactive CEFDINIR 300 MG CAPS 1 po BID x 10 days CEFDINIR 300 MG CAPS 652117 CEFDINIR Inactive Immunizations Vaccine Administration Date Value Standard Description Seasonal influenza vaccine, injectable, containing preservative, for > 3 years old (Afluria, FluLaval, Fluzone, Fluvirin, Fluarix, Agriflu(>=18 yo)) Fluzone (>3 yrs.) [[id number]] Influenza, seasonal, injectable influenza immunization (Flu Vax) has been administered Influenza - Unspecified Formulation [CVX88] influenza virus vaccine, unspecified formulation pneumococcal immunization administered Pneumovax 23 [CVX33] pneumococcal polysaccharide vaccine, 23 valent Seasonal influenza vaccine, injectable, containing preservative, for > 3 years old (Afluria, FluLaval, Fluzone, Fluvirin, Fluarix, Agriflu(>=18 yo)) Fluzone (>3 yrs.) [KQM694] Influenza, seasonal, injectable dT (Diphtheria and Tetanus) booster given given Td(adult) unspecified formulation Boostrix (Tetanus toxoid, reduced diphtheria toxoid and acellular pertussis vaccine, adsorbed), booster Boostrix [NFV219] tetanus toxoid, reduced diphtheria toxoid, and acellular [...] Panel - Chemistry sodium, serum 145 mmol/L 670-444 4768/06/22 potassium, serum 3.9 mmol/L 3.5-5.2 chloride, serum 109 mmol/L 98-107 carbon dioxide, venous blood 23.4 mmol/L 21.0-32.0 blood glucose 92 mg/dL 65-110 calcium, serum 8.2 mg/dL 8.5-10.1 urea nitrogen, blood 24 mg/dL 7-18 creatinine, serum 1.30 mg/dL 0.60-1.30 Lab Report: [facility] Advanced Lipid and Inlammation Panel /39823 - Chemistry cholesterol, serum 198 mg/dL 953-588 9278/04/30 HDL cholesterol, serum 65 mg/dL > OR=46 triglyceride, serum, fasting 82 mg/dL LDL cholesterol, serum 117 mg/dL cholesterol/HDL ratio, serum 3.0 calc < OR=5.0 cholesterol, serum 148 mg/dL 899-447 1306/09/02 HDL cholesterol, serum 55 mg/dL > OR=46 [...] (L) - Chemistry sodium, serum 145 mmol/L 008-142 3344/09/02 potassium, serum 4.6 mmol/L 3.5-5.2 chloride, serum [...] Rate - Chemistry sodium, serum 139 mmol/L 773-814 8735/03/24 carbon dioxide, venous blood 22.4 mmol/L 21.0-32.0 [...] 51 mg/dL 30-200 cholesterol, serum 173 mg/dL 675-877 2857/04/28 HDL cholesterol, serum 63 mg/dL 32-96 LDL [...] mg/dL Encounters Code Encounter Date Provider Facility CPT-76409 Level 3 Est. Patient 11:30:07 CDT Rodrigo Sarah APRN [facility] CPT-72624 Level 4 Est. Patient 21:02:30 CHOCOLATE FINISHER Gab Padron MD [facility] CPT-16282 Level 3 Est. Patient 11:02:19 CHOCOLATE FINISHER Gab Padron MD [facility] CPT-60168 Level 4 Est. Patient 22:24:31 CHOCOLATE FINISHER Gab Padron MD [facility] CPT-36160 Level 3 Est. Patient 18:33:46 CHOCOLATE FINISHER Gab Padron MD [facility] CPT-70502 Level 3 Est. Patient 16:19:11 CDT Yolande Lindsay MD PhD [facility] CPT-31022 Level 3 Est. Patient 18:59:14 CDT Yolande Lindsay MD [facility] CPT-31901 Level 4 Est. Patient 21:29:26 CDT Yolande Lindsay MD [facility]-50298 Level 3 Est. Patient 07:37:45 CDT Yolande Lindsay MD [facility]-16488 Level 3 Est. Patient 17:03:46 CDT Yolande Lindsay MD [facility]-50952 Level 4 Est. Patient 20:02:13 CHOCOLATE FINISHER Yolande Lindsay MD [facility] named [facility]-02418 Level 3 Est. Patient 16:02:07 CHOCOLATE FINISHER Alexis Ordaz MD [facility] CPT-14844 Level 3 Est. Patient 12:41:24 CHOCOLATE FINISHER Yolande Lindsay MD [facility] named [facility]-43650 Level 3 Est. Patient 15:41:20 CHOCOLATE FINISHER Yolande Lindsay MD [facility] CPT-52967 Level 3 Est. Patient 13:20:02 CHOCOLATE FINISHER Yolande Lindsay MD [facility] named [facility]-68017 Level 3 Est. Patient 15:00:38 CDT Jared Og MD [facility]-39447 Level 3 Est. Patient 10:22:32 CDT Yolande Lindsay MD [facility] CPT-20358 Level 3 Est. Patient 17:12:58 CDT Yolande Lindsay MD [facility] CPT-18655 Level 4 Est. Patient 13:30:58 CDT Yolande Lindsay MD [facility] CPT-78055 Level 4 New Patient 09:02:42 CDT Jared Og MD [facility]-00709 Level 3 Est. Patient 08:19:07 CDT Yolande Lindsay MD [facility] named [facility]-71042 Level 3 Est. Patient 12:00:13 CHOCOLATE FINISHER Gab Padron MD [facility] CPT-74469 Level 3 Est. Patient 16:15:23 CHOCOLATE FINISHER Yolande Lindsay MD [facility] named [facility]-08621 Level 2 Est. Patient 19:47:15 CDT Yolande Lindsay MD [facility] named [facility]-69231 Level 3 Est. Patient 21:38:31 CDT Yolande Lindsay MD [facility] named [facility]-73318 Level 3 Est. Patient 10:25:12 CDT Adiel PERAZA [facility]-27834 Level 4 Est. Patient 10:51:58 CDT Yolande Lindsay MD [facility] named [facility]-01455 Level 3 Est. Patient 14:04:55 CHOCOLATE FINISHER Rodrigo Sarah [facility] CPT-44025 Level 3 Est. Patient 10:46:35 CHOCOLATE FINISHER Rodrigo Sarah [facility] CPT-04192 Level 3 Est. Patient 14:24:37 CHOCOLATE FINISHER Yolande Lindsay MD [facility] CPT-46829 Level 3 Est. Patient 17:41:58 CHOCOLATE FINISHER Yolande Lindsay MD [facility] named [facility]-36809 Level 2 Est. Patient 22:01:41 CHOCOLATE FINISHER Rodrigo Sarah [facility] CPT-41800 Level 2 Est. Patient 22:01:11 CHOCOLATE FINISHER Rodrigo Sarah [facility]-65715 Level 3 Est. Patient 10:12:29 CHOCOLATE FINISHER Rodrigo Sarah [facility] CPT-29186 Level 3 Est. Patient 11:05:44 CDT Alexis Ordaz MD [facility]-54663 Level 3 Est. Patient 14:57:20 CDT Yolande Lindsay MD [facility] CPT-34968 Level 3 Est. Patient 14:40:57 CDT Yolande Lindsay MD [facility] CPT-16873 Level 3 Est. Patient 20:55:40 CDT Yolande Lindsay MD [facility] CPT-72876 Level 3 Est. Patient 12:42:38 CHOCOLATE FINISHER Yolande Lindsay MD [facility] CPT-15373 Level 3 Est. Patient 11:54:49 CHOCOLATE FINISHER Des Hines MD [facility] CPT-55110 Level 3 Est. Patient 17:06:[address] [facility] Procedures Code Procedure Name Date Entry Date Standard Description CPT-85786 LS spine comp w obliq 13:28:00 CHOCOLATE FINISHER CPT-J1040 Depo Medrol 80 mg (Methyl Prednisolone Acetate) 10:51: 28 CHOCOLATE FINISHER CPT-J1100 Decadron 8mg (Dexamethasone) 10:51:28 CHOCOLATE FINISHER CPT-41657 Abx/Therapy Injection 10:51:28 CHOCOLATE FINISHER CPT-J1100 Decadron 8mg (Dexamethasone) 21:02:30 CHOCOLATE FINISHER CPT-J1040 Depo Medrol 80 mg (Methyl Prednisolone Acetate) 21:02: 30 CHOCOLATE FINISHER [id number] Event Monitor - MC Transmission 09:12:32 CDT 08/06 [id number] Event Monitor - MC review and interp 09:12:32 CDT [id number] Event Monitor - MC recording 09:12:32 CDT CPT-76608 EKG Trac and Interp 16:50:22 CDT CPT-J1030 Depo Medrol 40 mg (Methyl Prednisolone Acetate) 17:05: 54 CDT CPT-J1100 Decadron 4mg (Dexamethasone) 17:05:54 CDT CPT-20714 Abx/Therapy Injection 17:05:54 CDT CPT-J1100 Decadron 4mg (Dexamethasone) 16:55:28 CDT CPT-J1030 Depo Medrol 40 mg (Methyl Prednisolone Acetate) 16:55: 28 CDT CPT-34882 Ankle Complete - Min 3V 15:58:50 CDT CPT-09689 Knee 3V 15:58:50 CDT CPT-90692 Hip comp min 2V 15:58:50 CDT CPT-J2270 Morphine Sulfate 10 mg 14:25:44 CHOCOLATE FINISHER CPT-J2550 Phenergan 12.5 mg (Promethazine) 14:25:44 CHOCOLATE FINISHER CPT-08100 Abx/Therapy Injection 14:25:44 CHOCOLATE FINISHER CPT-J2550 Phenergan 12.5 mg (Promethazine) 14:08:03 CHOCOLATE FINISHER CPT-J2270 Morphine Sulfate 10 mg 14:08:03 CHOCOLATE FINISHER CPT-69342 Bladder Scan 15:00:38 CDT CPT-TCMM Transitional Care Mgmt-Moderate 09:52:22 CDT CPT-J1030 Depo Medrol 40 mg (Methyl Prednisolone Acetate) 10:55: 18 CDT CPT-J1100 Decadron 4mg (Dexamethasone) 10:55:18 CDT CPT-55536 Abx/Therapy Injection 10:55:18 CDT CPT-J1030 Depo Medrol 40 mg (Methyl Prednisolone Acetate) 10:22: 32 CDT CPT-J1100 Decadron 4mg (Dexamethasone) 10:22:32 CDT CPT-47362 Postop F/U Visit 14:37:13 CDT CPT-54861 Ankle Complete - Min 3V 17:11:58 CDT CPT-16675 Foot comp min 3V 17:11:58 CDT CPT-58927 Bladder Scan 09:56:58 CDT CPT-99503 Postop F/U Visit 09:56:58 CDT CPT-27592 Cystoscopy 09:02:42 CDT CPT-99571 Bladder Scan 09:02:42 CDT CPT-50852 Abd single AP View 16:00:35 CDT CPT-86544 Administration single or combination vaccine inc oral 10 :15:43 CDT CPT-92182 Influenza split virus > age 3 10:15:43 CDT CPT-99161 Nail Avulsion 09:24:57 CDT CPT-OV Office Visit 11:15:41 CDT CPT-14204 Abx/Therapy Injection 10:51:30 CDT CPT-J3301 Kenalog 40 mg (Triamcinolone Acetonide) 10:25:12 CDT CPT-J1100 Decadron 4mg (Dexamethasone) 10:25:12 CDT CPT-98487 Anoscopy diagnostic 10:36:12 CDT CPT-OV Office Visit 15:34:31 CDT CPT-92088 Abx/Therapy Injection 08:21:15 CHOCOLATE FINISHER CPT-J1885 Toradol 60 mg (Ketorolac) 10:46:35 CHOCOLATE FINISHER CPT-OV Office Visit 19:51:16 CHOCOLATE FINISHER CPT-55598 Spec Collection and Handling Fee 14:34:18 CHOCOLATE FINISHER CPT-PV Prev. Care Visit 14:19:18 CHOCOLATE FINISHER CPT-37209 Postop F/U Visit 14:47:51 CHOCOLATE FINISHER CPT-98365 Postop F/U Visit 15:15:14 CHOCOLATE FINISHER CPT-92327 Postop F/U Visit 14:41:43 CDT CPT-49185 Postop F/U Visit 15:47:46 CDT CPT-OV Office Visit 15:27:23 CDT CPT-OV Office Visit 17:20:34 CDT CPT-72925 Abx/Therapy Injection 15:05:57 CDT CPT-J1100 Decadron 8mg (Dexamethasone) 14:44:57 CDT CPT-J1040 Depo Medrol 80 mg (Methyl Prednisolone Acetate) 14:44: 57 CDT CPT-JTINJ Joint Injection 10:17:37 CDT CPT-39642 Administration 2+ single or combination vaccines inc oral 13:01:46 CHOCOLATE FINISHER CPT-78417 Administration single or combination vaccine inc oral 13 :01:46 CHOCOLATE FINISHER CPT-35037 Pneumovax 13:01:46 CHOCOLATE FINISHER CPT-64180 Influenza split virus > age 3 13:01:46 CHOCOLATE FINISHER CPT-53114 Administration single or combination vaccine inc oral 08 :56:49 CDT CPT-92348 Tdap 08:56:49 CDT
--- OUTSIDE RECORDS SUMMARY | 2017-03-21 23:02 | XMS REPORT | Clinical Summary ---
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 Jillina Frazellilian CLEANING TECHNICIAN 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 Anemia 285.9 Active Gab Padron MD Anemia, unspecified Conjunctivitis 372.30 Active Jillnacho Sarah APRN Conjunctivitis, unspecified Sinusitis 473.9 Active Silvestrellina Frazell CLEANING TECHNICIAN Unspecified sinusitis (chronic) Nonspecific syndrome suggestive of viral illness 079.99 Active Jillina Frazell CLEANING TECHNICIAN Unspecified viral infection Laryngitis 464.00 Active Jillina Frazell CLEANING TECHNICIAN Acute laryngitis without mention of obstruction [...] Flank pain, left 789.09 Active Jillina Frazell CLEANING TECHNICIAN Abdominal pain, other specified site; multiple sites Abdominal pain, generalized 789.07 Active Jillina Farshadzell CLEANING TECHNICIAN Abdominal pain, generalized Back pain, thoracic region, left 724.1 Active Jillina Frazell CLEANING TECHNICIAN Pain in thoracic spine Abdominal pain, [...] 1/2 tab daily for 2 days PREDNISONE 65953324385 No Longer Active Gab Padron MD Active ZOFRAN ODT 4 MG TBDP 1 po q6hr PRN Nausea ONDANSETRON 20431364054 Active Jillina Frazell CLEANING TECHNICIAN Active IBUPROFEN 600 MG TAB 1 tablet by mouth every 6 hours for 7 days, then 1 tablet every 6 hours as needed. Take with food IBUPROFEN 47904005661 Active Jillina Frazell CLEANING TECHNICIAN Active BACTRIM DS 800-160 MG TAB 1 tab by mouth twice daily TRIMETHOPRIM-SULFAMETHOXAZOLE 03753004746 No Longer Active Gab Padron MD Active ADVAIR DISKUS 250-50 MCG/DOSE AEPB 1 puff BID FLUTICASONE- SALMETEROL 69989013233 Active Rodrigo Sarah APRN Active LEVOTHYROXINE SODIUM 75 MCG TABS Take 1 tab daily LEVOTHYROXINE SODIUM 48803050879 No Longer Active Mariana FLEMING Active SYNTHROID 88 MCG ORAL TABS Take one by mouth daily LEVOTHYROXINE SODIUM 96037579406 Active Mariana FLEMING Active CHERATUSSIN AC 100-10 MG/5ML SYRP 1 tsp by mouth every 4 hours as needed for cough GUAIFENESIN-CODEINE 36914597581 No Longer Active Gab Padron MD Active POLYTRIM 23133-8.1 UNIT/ML-% SOLN 1 gtt to affected eye q3h x 7 days POLYMYXIN B-TRIMETHOPRIM 61837238157 No Longer Active Gab Padron MD Active FLUTICASONE PROPIONATE 50 MCG/ACT SUSP 1 to 2 sprays each nostril daily 04/21 FLUTICASONE PROPIONATE 95393714188 No Longer Active Gab Padron MD Active TRILEPTAL 600 MG TABS Take one 1 tablet in Am and 1 tablet at night OXCARBAZEPINE 76372084670 Active Gab Padron MD Active CEFDINIR 300 MG CAPS 1 po BID x 10 days CEFDINIR 23842067809 No Longer Active Rodrigo Sarah APRN Active CEFTIN 500 MG TAB 1 twice a day CEFUROXIME AXETIL 98641337504 No Longer Active Gab Padron MD Active AZITHROMYCIN 250 MG TABS 2 po qd x 1 day, then 1 po qd x 4 days AZITHROMYCIN 89202438819 No Longer Active Rodrigo Sarah APRN Active CLARITIN 10 MG TAB 1 tablet by mouth daily as needed for allergies LORATADINE 80204448682 Active Rodrigo Sarah APRN Active OXYCODONE HCL 5 MG ORAL CAPS 1 TAB PO Q HS OXYCODONE HCL 70063787850 No Longer Active Rodrigo Sarah APRN Active NIASPAN 500 MG ORAL CR-TABS 1 pill nightly x 1 week, then 2 pills nightly x 1 week, then 3 pills nightly x 1 week, then 4 pills nightly NIACIN (ANTIHYPERLIPIDEMIC) 35844879013 No Longer Active Rodrigo Sarah APRN Active NIACIN 500 MG TABS 1 pill by mouth nightly x 1 week, then 2 pills x 1 week, then 3 pills x 1 week, then 4 pills nightly - take after evening meal, with applesauce or an apple NIACIN 97230949584 No Longer Active Yolande Lindsay MD PhD Active FISH OIL 1000 MG CAPS 3 pills daily OMEGA-3 FATTY ACIDS 01214180836 Active Yolande Lindsay MD PhD Active TRIAMCINOLONE ACETONIDE 0.1 % CREA apply bid sparingly to rash TRIAMCINOLONE ACETONIDE 12184812718 Active Yolande Lindsay MD PhD Active FUROSEMIDE 20 MG TAB 1 tablet by mouth daily FUROSEMIDE 14646136599 Active Tisha Lambert APRN Active LISINOPRIL 20 MG ORAL TABS 1 tab by mouth daily LISINOPRIL 08395111212 Active Gab Padron MD Active FUROSEMIDE 20 MG TABS 1 pill by mouth daily, for edema FUROSEMIDE 83846519398 No Longer Active Yolande Lindsay MD PhD Active ATORVASTATIN CALCIUM 10 MG TABS 1 pill by mouth daily, for cholesterol 09/06 ATORVASTATIN CALCIUM 63255959168 Active Gab Padron MD Active CALCIUM 600+D PLUS MINERALS 600-400 MG-UNIT ORAL CHEW 1 tab by mouth daily CALCIUM CARBONATE-VIT D-MIN 98209891428 No Longer Active Yolande Lindsay MD PhD Active CYCLOBENZAPRINE HCL 10 MG TABS 1 tablet by mouth three times daily as needed for muscle spasm/pain CYCLOBENZAPRINE HCL 89665446524 Active Yolande Lindsay MD PhD Active ONDANSETRON 4 MG TBDP 1 q4h PRN nausea ONDANSETRON 25751208508 Active Yolande Lindsay MD PhD Active ADULT ASPIRIN EC LOW STRENGTH 81 MG TBEC Take 1 tablet by mouth daily 2014 ASPIRIN 69573893966 No Longer Active Yolande Lindsay MD PhD Active ZOFRAN ODT 4 MG TBDP 1 pill dissolved by mouth every 4 hours if needed for nausea ONDANSETRON 75834976395 No Longer Active Yolande Lindsay MD PhD Active CEFTIN 500 MG TAB 1 twice a day CEFUROXIME AXETIL 73802840199 No Longer Active Yolande Lindsay MD PhD Active ALBUTEROL SULFATE 0.083 % NEBU SOLN one vial per nebulizer every 4-6 hours as needed ALBUTEROL SULFATE 88492214548 No Longer Active Alexis Ordaz MD Active DOXYCYCLINE HYCLATE 100 MG CAP 1 cap by mouth twice daily DOXYCYCLINE HYCLATE 10353524930 No Longer Active Yolande Lindsay MD PhD Active CYCLOBENZAPRINE HCL 10 MG TABS 1/2 - 1 tab by mouth three times daily if needed for spasms/pain CYCLOBENZAPRINE HCL 35571205292 No Longer Active Yolande Lindsay MD PhD Active AZITHROMYCIN 250 MG TABS 2 pills on day 1, then 1 pill daily x 4 days AZITHROMYCIN 73614031494 No Longer Active Yolande Lindsay MD PhD Active XOPENEX 1.25 MG/3ML NEBU 1 neb every 4 hours if needed for cough/congestion LEVALBUTEROL HCL 49987750177 No Longer Active Yolande Lindsay MD PhD Active DOXYCYCLINE HYCLATE 100 MG TAB 1 tab twice a day for 14 days 2013 DOXYCYCLINE HYCLATE 76781039928 No Longer Active Yolande Lindsay MD PhD Active PREVACID 30 MG CPDR Take 1 tablet by mouth daily-PRN LANSOPRAZOLE 31621848424 No Longer Active Yolande Lindsay MD PhD Active PA VITAMIN D-3 2000 UNIT CAPS 1 CAP PO DAILY CHOLECALCIFEROL 83979291893 No Longer Active Yolande Lindsay MD PhD Active CEFDINIR 300 MG CAPS by mouth twice a day CEFDINIR 82983587433 No Longer Active Gab Padron MD Active TOPAMAX 50 MG TABS 1 PO twice daily TOPIRAMATE 67691928792 Active Yolande Lindsay MD PhD Active AZITHROMYCIN 250 MG TABS 2 po qd x 1 day, then 1 po qd x 4 days AZITHROMYCIN 70679559145 No Longer Active Yolande Lindsay MD PhD Active DICLOFENAC SODIUM 75 MG TBEC 1 tablet by q 12 hours PRN headaches DICLOFENAC SODIUM 85667166017 No Longer Active Yolande Lindsay MD PhD Active FLONASE 50 MCG/ACT SUSP 1 spray each nostril am and hs FLUTICASONE PROPIONATE 07504804301 No Longer Active Todd Callaway MD Active ANUSOL-HC 25 MG SUPPOSITORY 1 rectally twice a day as needed for hemorrhoids HYDROCORTISONE JAYDEN (RECTAL) 92596058097 No Longer Active Yolande Lindsay MD PhD Active ANUSOL-HC 25 MG SUPPOSITORY 1 suppository rectally each evening as needed for anal fissure HYDROCORTISONE JAYDEN (RECTAL) 87436919969 No Longer Active LONNIE Iglesias Active VALIUM 5 MG TAB 1 po 30 minutes prior to your MRI DIAZEPAM 81478075312 No Longer Active LONNIE Iglesias Active METHOCARBAMOL 750 MG TABS 1 PO QID PRN METHOCARBAMOL 73679862368 No Longer Active Daphne Wetzel CLEANING TECHNICIAN Active NITROSTAT 0.4 MG SUBL as directed NITROGLYCERIN 41180224412 No Longer Active Rodrigo Sarah APRN Active ROBAXIN-750 750 MG TABS 2 four times a day for 3 days as needed for muscle spasm, then 1 four times a day as needed METHOCARBAMOL 60517930324 No Longer Active Rodrigo Sarah APRN Active HYDROCODONE-ACETAMINOPHEN 5-325 MG TABS 1 q 4-6 hrs prn HYDROCODONE-ACETAMINOPHEN 40507084550 No Longer Active Rodrigo Sarah APRN Active VERAPAMIL HCL CR 180 MG CR-TABS TAKE 1 TAB DAILY VERAPAMIL HCL 38313348989 No Longer Active Yolande Lindsay MD PhD Active BACTRIM DS 800-160 MG TAB 1 tab by mouth twice daily TRIMETHOPRIM-SULFAMETHOXAZOLE 51195132164 No Longer Active Yolande Lindsay MD PhD Active NEXIUM 40 MG PACK 1 by mouth daily ESOMEPRAZOLE MAGNESIUM 16256271830 No Longer Active Des Hines MD Active EPIPEN 2-CHARLETTE 0.3 MG/0.3ML OMARI as need for allergic reaction EPINEPHRINE 42615105054 Active Yolande Lindsay MD PhD Active NEXIUM 40 MG CPDR 1 PO Q D DAY ESOMEPRAZOLE MAGNESIUM 93867042659 No Longer Active Sadia Perry RN Active NEXIUM 40 MG PACK 1 by mouth daily NEXIUM 40 MG PACK ESOMEPRAZOLE MAGNESIUM Inactive VERAPAMIL HCL CR 180 MG CR-TABS TAKE 1 TAB DAILY VERAPAMIL HCL CR 180 MG CR-TABS VERAPAMIL HCL Inactive HYDROCODONE-ACETAMINOPHEN 5-325 MG TABS 1 q 4-6 hrs prn HYDROCODONE-ACETAMINOPHEN 5-325 MG TABS 396612 HYDROCODONE-ACETAMINOPHEN Inactive ROBAXIN-750 750 MG TABS 2 four times a day for 3 days as needed for muscle spasm, then 1 four times a day as needed ROBAXIN-750 750 MG TABS 701095 METHOCARBAMOL Inactive NITROSTAT 0.4 MG SUBL as directed NITROSTAT 0.4 MG SUBL 852967 NITROGLYCERIN Inactive METHOCARBAMOL 750 MG TABS 1 PO QID PRN METHOCARBAMOL 750 MG TABS 708725 METHOCARBAMOL Inactive VALIUM 5 MG TAB 1 po 30 minutes prior to your MRI VALIUM 5 MG TAB 421755 DIAZEPAM Inactive ANUSOL-HC 25 MG SUPPOSITORY 1 suppository rectally each evening as needed for anal fissure ANUSOL-HC 25 MG SUPPOSITORY 9921726 HYDROCORTISONE JAYDEN (RECTAL) Inactive ANUSOL-HC 25 MG SUPPOSITORY 1 rectally twice a day as needed for hemorrhoids ANUSOL-HC 25 MG SUPPOSITORY 7451407 HYDROCORTISONE JAYDEN (RECTAL) Inactive FLONASE 50 MCG/ACT SUSP 1 spray each nostril am and hs FLONASE 50 MCG/ACT SUSP FLUTICASONE PROPIONATE Inactive DICLOFENAC SODIUM 75 MG TBEC 1 tablet by q 12 hours PRN headaches DICLOFENAC SODIUM 75 MG TBEC 558833 DICLOFENAC SODIUM Inactive PA VITAMIN D-3 2000 UNIT CAPS 1 CAP PO DAILY PA VITAMIN D-3 2000 UNIT CAPS CHOLECALCIFEROL Inactive PREVACID 30 MG CPDR Take 1 tablet by mouth daily-PRN PREVACID 30 MG CPDR 904856 LANSOPRAZOLE Inactive DOXYCYCLINE HYCLATE 100 MG TAB 1 tab twice a day for 14 days 2013 DOXYCYCLINE HYCLATE 100 MG TAB 2765503 DOXYCYCLINE HYCLATE Inactive XOPENEX 1.25 MG/3ML NEBU 1 neb every 4 hours if needed for cough/congestion XOPENEX 1.25 MG/3ML NEBU 154813 LEVALBUTEROL HCL Inactive CYCLOBENZAPRINE HCL 10 MG TABS 1/2 - 1 tab by mouth three times daily if needed for spasms/pain CYCLOBENZAPRINE HCL 10 MG TABS 351422 CYCLOBENZAPRINE HCL Inactive ALBUTEROL SULFATE 0.083 % NEBU SOLN one vial per nebulizer every 4-6 hours as needed ALBUTEROL SULFATE 0.083 % NEBU SOLN 984352 ALBUTEROL SULFATE Inactive CEFTIN 500 MG TAB 1 twice a day CEFTIN 500 MG TAB 650669 CEFUROXIME AXETIL Inactive ZOFRAN ODT 4 MG TBDP 1 pill dissolved by mouth every 4 hours if needed for nausea ZOFRAN ODT 4 MG TBDP 717737 ONDANSETRON Inactive ADULT ASPIRIN EC LOW STRENGTH 81 MG TBEC Take 1 tablet by mouth daily 2014 ADULT ASPIRIN EC LOW STRENGTH 81 MG TBEC 152118 ASPIRIN Inactive CALCIUM 600+D PLUS MINERALS 600-400 [...] or an apple NIACIN 500 MG TABS 232940 NIACIN Inactive NIASPAN 500 MG ORAL CR-TABS 1 pill nightly x 1 week, then 2 pills nightly x 1 week, then 3 pills nightly x 1 week, then 4 pills nightly NIASPAN 500 MG ORAL CR-TABS NIACIN (ANTIHYPERLIPIDEMIC) Inactive OXYCODONE HCL 5 MG ORAL CAPS 1 TAB PO Q HS OXYCODONE HCL 5 MG ORAL CAPS 6524989 OXYCODONE HCL Inactive FLUTICASONE PROPIONATE 50 MCG/ACT SUSP 1 to 2 sprays each nostril daily 04/21 FLUTICASONE PROPIONATE 50 MCG/ACT SUSP 0586948 FLUTICASONE PROPIONATE Inactive POLYTRIM 07566-7.1 UNIT/ML-% SOLN 1 gtt to affected eye q3h x 7 days POLYTRIM 56961-1.1 UNIT/ML-% SOLN 518222 POLYMYXIN B- TRIMETHOPRIM Inactive CHERATUSSIN AC 100-10 MG/5ML SYRP 1 tsp by mouth every 4 hours as needed for cough CHERATUSSIN AC 100-10 MG/5ML SYRP 040057 GUAIFENESIN-CODEINE Inactive LEVOTHYROXINE SODIUM 75 MCG TABS Take 1 tab daily LEVOTHYROXINE SODIUM 75 MCG TABS 434995 LEVOTHYROXINE SODIUM Inactive BACTRIM DS 800-160 MG TAB 1 tab by mouth twice daily BACTRIM DS 800-160 MG TAB 772039 TRIMETHOPRIM-SULFAMETHOXAZOLE Inactive AZITHROMYCIN 250 MG TABS 2 po qd x 1 day, then 1 po qd x 4 days AZITHROMYCIN 250 MG TABS 6730875 AZITHROMYCIN Inactive CEFDINIR 300 MG CAPS by mouth twice a day CEFDINIR 300 MG CAPS 20020708 CEFDINIR Inactive AZITHROMYCIN 250 MG TABS 2 pills on day 1, then 1 pill daily x 4 days AZITHROMYCIN 250 MG TABS 6792205 AZITHROMYCIN Inactive DOXYCYCLINE HYCLATE 100 MG CAP 1 cap by mouth twice daily DOXYCYCLINE HYCLATE 100 MG CAP 7826067 DOXYCYCLINE HYCLATE Inactive FUROSEMIDE 20 MG TABS 1 pill by mouth daily, for edema FUROSEMIDE 20 MG TABS 384582 FUROSEMIDE Inactive AZITHROMYCIN 250 MG TABS 2 po qd x 1 day, then 1 po qd x 4 days AZITHROMYCIN 250 MG TABS 9705444 AZITHROMYCIN Inactive CEFTIN 500 MG TAB 1 twice a day CEFTIN 500 MG TAB 145694 CEFUROXIME AXETIL Inactive CEFDINIR 300 MG CAPS 1 po BID x 10 days CEFDINIR 300 MG CAPS 20020708 CEFDINIR Inactive BACTRIM DS 800-160 MG TAB 1 tab by mouth twice daily BACTRIM DS 800-160 MG TAB 101142 TRIMETHOPRIM-SULFAMETHOXAZOLE Inactive PREDNISONE 20 MG TAB 2 tabs daily for 3 days, 1 tab daily for 3 days, 1/2 tab daily for 2 days PREDNISONE 20 MG TAB 462601 PREDNISONE Inactive Immunizations Vaccine Administration Date Value Standard Description Seasonal influenza vaccine, injectable, containing preservative, for > 3 years old (Afluria, FluLaval, Fluzone, Fluvirin, Fluarix, Agriflu(>=18 yo)) Fluzone (>3 yrs.) [EJB039] Influenza, seasonal, injectable influenza immunization (Flu Vax) has been administered Influenza - Unspecified Formulation [CVX88] influenza virus vaccine, unspecified formulation Seasonal influenza vaccine, injectable, containing preservative, for > 3 years old (Afluria, FluLaval, Fluzone, Fluvirin, Fluarix, Agriflu(>=18 yo)) Fluzone (>3 yrs.) [WYP762] Influenza, seasonal, injectable pneumococcal immunization administered Pneumovax 23 [CVX33] pneumococcal polysaccharide vaccine, 23 valent dT (Diphtheria and Tetanus) booster given given Td(adult) unspecified formulation Boostrix (Tetanus toxoid, reduced diphtheria toxoid and acellular pertussis vaccine, adsorbed), booster Boostrix [GZW526] tetanus toxoid, reduced diphtheria toxoid, and acellular [...] Panel - Chemistry sodium, serum 142 mmol/L 761-911 4772/06/30 potassium, serum 4.4 mmol/L 3.5-5.2 chloride, serum [...] Rate - Chemistry sodium, serum 139 mmol/L 199-843 8145/03/24 carbon dioxide, venous blood 22.4 mmol/L 21.0-32.0 [...] ... - Chemistry sodium, serum 143 mmol/L 919-369 8713/05/02 carbon dioxide, venous blood 25.6 mmol/L 21.0-32.0 [...] dipstick Negative Negative sodium, serum 142 mmol/L 598-399 1052/07/18 carbon dioxide, venous blood 27.8 mmol/L 21.0-32.0 [...] negative Encounters Code Encounter Date Provider Facility CPT-59286 Level 4 Est. Patient 16:31:27 CDT Gab Padron MD [facility] CPT-38271 Level 2 Est. Patient 12:23:38 CDT Jared Og MD [facility] CPT-28688 Level 3 Est. Patient 11:01:51 CDT Gab Padron MD [facility] CPT-78745 Level 3 Est. Patient 15:27:02 CDT Jared Og MD [facility] CPT-80563 Level 4 Est. Patient 09:25:27 CDT Gab Padron MD [facility] CPT-28246 Level 3 Est. Patient 10:29:41 CDT Rodrigo [facility] CPT-46463 Level 4 Est. Patient 17:51:05 CDT Gab Padron MD [facility] CPT-16890 Level 3 Est. Patient 14:18:08 CDT Gab Padron MD [facility] CPT-05701 Level 4 Est. Patient 10:18:54 CDT Gab Padron MD [facility] CPT-97767 Level 3 Est. Patient 11:30:07 CDT Rodrigo [facility] CPT-55384 Level 4 Est. Patient 21:02:30 NETWORK CONTRACT MANAGER Gab Padron MD [facility] CPT-95612 Level 3 Est. Patient 11:02:19 NETWORK CONTRACT MANAGER Gab Padron MD [facility] CPT-38022 Level 4 Est. Patient 22:24:31 NETWORK CONTRACT MANAGER Gab Padron MD [facility] CPT-70957 Level 3 Est. Patient 18:33:46 NETWORK CONTRACT MANAGER Gab Padron MD [facility] CPT-71658 Level 3 Est. Patient 16:19:11 CDT Yolaned Lindsay MD [facility]-44918 Level 3 Est. Patient 18:59:14 CDT Yolande Lindsay MD [facility]-90563 Level 4 Est. Patient 21:29:26 CDT Yolande Lindsay MD [facility]-30378 Level 3 Est. Patient 07:37:45 CDT Yolande Lindsay MD [facility]-09415 Level 3 Est. Patient 17:03:46 CDT Yolande Lindsay MD [facility]-59140 Level 4 Est. Patient 20:02:13 NETWORK CONTRACT MANAGER Yolande Lindsay MD [facility]-49289 Level 3 Est. Patient 16:02:07 NETWORK CONTRACT MANAGER Alexis Ordaz MD [facility]-55909 Level 3 Est. Patient 12:41:24 NETWORK CONTRACT MANAGER Yolande Lindsay MD [facility]-86872 Level 3 Est. Patient 15:41:20 NETWORK CONTRACT MANAGER Yolande Lindsay MD [facility]-79408 Level 3 Est. Patient 13:20:02 NETWORK CONTRACT MANAGER Yolande Lindsay MD [facility]-28086 Level 3 Est. Patient 15:00:38 CDT Jared Og MD [facility]-72332 Level 3 Est. Patient 10:22:32 CDT Yolande Lindsay MD [facility]-40189 Level 3 Est. Patient 17:12:58 CDT Yolande Lindsay MD [facility]-88138 Level 4 Est. Patient 13:30:58 CDT Yolande Lindsay MD [facility]-33381 Level 4 New Patient 09:02:42 CDT Jared Og MD [facility]-71376 Level 3 Est. Patient 08:19:07 CDT Yolande Lindsay MD [facility]-80872 Level 3 Est. Patient 12:00:13 NETWORK CONTRACT MANAGER Gab Padron MD [facility]-58300 Level 3 Est. Patient 16:15:23 NETWORK CONTRACT MANAGER Yolande Lindsay MD [facility]24834 Level 2 Est. Patient 19:47:15 CDT Yolande Lindsay MD [facility]51350 Level 3 Est. Patient 21:38:31 CDT Yolande Lindsay MD [facility]50742 Level 3 Est. Patient 10:25:12 CDT Adiel PERAZA [facility]-31441 Level 4 Est. Patient 10:51:58 CDT Yolande Lindsay MD [facility]-39108 Level 3 Est. Patient 14:04:55 NETWORK CONTRACT MANAGER Rodrigo Sarah [facility]-18565 Level 3 Est. Patient 10:46:35 NETWORK CONTRACT MANAGER Rodrigo Sarah [facility]-65026 Level 3 Est. Patient 14:24:37 NETWORK CONTRACT MANAGER Yolande Lindsay MD [facility]-11521 Level 3 Est. Patient 17:41:58 NETWORK CONTRACT MANAGER Yolande Lindsay MD [facility]73793 Level 2 Est. Patient 22:01:41 NETWORK CONTRACT MANAGER Rodrigo Sarah [facility]-02262 Level 2 Est. Patient 22:01:11 NETWORK CONTRACT MANAGER Rodrigo Sarah [facility]-19205 Level 3 Est. Patient 10:12:29 NETWORK CONTRACT MANAGER Rodrigo Sarah [facility]-85592 Level 3 Est. Patient 11:05:44 CDT Alexis Ordaz MD [facility] CPT-23969 Level 3 Est. Patient 14:57:20 CDT Yolande Lindsay MD [facility] CPT-36121 Level 3 Est. Patient 14:40:57 CDT Yolande Lindsay MD [facility] CPT-42450 Level 3 Est. Patient 20:55:40 CDT Yolande Lindsay MD [facility] CPT-64784 Level 3 Est. Patient 12:42:38 NETWORK CONTRACT MANAGER Yolande Lindsay MD [facility] CPT-89229 Level 3 Est. Patient 11:54:49 NETWORK CONTRACT MANAGER Des Hines MD [facility] CPT-42068 Level 3 Est. Patient 17:06:38 CDT Dewayne PERAZA [facility] Procedures Code Procedure Name Date Entry Date Standard Description CPT-28346 First Vx - Ix admin via ID IM or jet injects without counseling by physician 11:52:31 CDT CPT-00040 Fluzone Preservative Free Intramuscular Suspension 11:52 :31 CDT CPT-85558 Foot, left, comp min 3V - XRAY USE ONLY 09:24:54 CDT CPT-56432 Abd single AP View - XRAY USE ONLY 11:16:17 CDT CPT-82128 T spine AP/ Lat - XRAY USE ONLY 09:34:21 CDT CPT-67926 Chest 2V Frontal and Lat - XRAY USE ONLY 10:48:51 CDT CPT-47563 LS spine comp w obliq 13:28:00 NETWORK CONTRACT MANAGER CPT-J1040 Depo Medrol 80 mg (Methyl Prednisolone Acetate) 10:51: 28 NETWORK CONTRACT MANAGER CPT-J1100 Decadron 8mg (Dexamethasone) 10:51:28 NETWORK CONTRACT MANAGER CPT-79583 Abx/Therapy Injection 10:51:28 NETWORK CONTRACT MANAGER CPT-J1100 Decadron 8mg (Dexamethasone) 21:02:30 NETWORK CONTRACT MANAGER CPT-J1040 Depo Medrol 80 mg (Methyl Prednisolone Acetate) 21:02: 30 NETWORK CONTRACT MANAGER [id number] Event Monitor - MC Transmission 09:12:32 CDT 08/06 [id number] Event Monitor - MC review and interp 09:12:32 CDT [id number] Event Monitor - MC recording 09:12:32 CDT CPT-27749 EKG Trac and Interp 16:50:22 CDT CPT-J1030 Depo Medrol 40 mg (Methyl Prednisolone Acetate) 17:05: 54 CDT CPT-J1100 Decadron 4mg (Dexamethasone) 17:05:54 CDT CPT-27918 Abx/Therapy Injection 17:05:54 CDT CPT-J1100 Decadron 4mg (Dexamethasone) 16:55:28 CDT CPT-J1030 Depo Medrol 40 mg (Methyl Prednisolone Acetate) 16:55: 28 CDT CPT-75372 Ankle Complete - Min 3V 15:58:50 CDT CPT-96038 Knee 3V 15:58:50 CDT CPT-65467 Hip comp min 2V 15:58:50 CDT CPT-J2270 Morphine Sulfate 10 mg 14:25:44 NETWORK CONTRACT MANAGER CPT-J2550 Phenergan 12.5 mg (Promethazine) 14:25:44 NETWORK CONTRACT MANAGER CPT-13889 Abx/Therapy Injection 14:25:44 NETWORK CONTRACT MANAGER CPT-J2550 Phenergan 12.5 mg (Promethazine) 14:08:03 NETWORK CONTRACT MANAGER CPT-J2270 Morphine Sulfate 10 mg 14:08:03 NETWORK CONTRACT MANAGER CPT-44501 Bladder Scan 15:00:38 CDT CPT-TCMM Transitional Care Mgmt-Moderate 09:52:22 CDT CPT-J1030 Depo Medrol 40 mg (Methyl Prednisolone Acetate) 10:55: 18 CDT CPT-J1100 Decadron 4mg (Dexamethasone) 10:55:18 CDT CPT-77383 Abx/Therapy Injection 10:55:18 CDT CPT-J1030 Depo Medrol 40 mg (Methyl Prednisolone Acetate) 10:22: 32 CDT CPT-J1100 Decadron 4mg (Dexamethasone) 10:22:32 CDT CPT-79738 Postop F/U Visit 14:37:13 CDT CPT-24704 Ankle Complete - Min 3V 17:11:58 CDT CPT-93310 Foot comp min 3V 17:11:58 CDT CPT-32272 Bladder Scan 09:56:58 CDT CPT-67573 Postop F/U Visit 09:56:58 CDT CPT-65913 Cystoscopy 09:02:42 CDT CPT-10564 Bladder Scan 09:02:42 CDT CPT-40932 Abd single AP View 16:00:35 CDT CPT-33345 Administration single or combination vaccine inc oral 10 :15:43 CDT CPT-03370 Influenza split virus > age 3 10:15:43 CDT CPT-68902 Nail Avulsion 09:24:57 CDT CPT-OV Office Visit 11:15:41 CDT CPT-50982 Abx/Therapy Injection 10:51:30 CDT CPT-J3301 Kenalog 40 mg (Triamcinolone Acetonide) 10:25:12 CDT CPT-J1100 Decadron 4mg (Dexamethasone) 10:25:12 CDT CPT-46891 Anoscopy diagnostic 10:36:12 CDT CPT-OV Office Visit 15:34:31 CDT CPT-00638 Abx/Therapy Injection 08:21:15 NETWORK CONTRACT MANAGER CPT-J1885 Toradol 60 mg (Ketorolac) 10:46:35 NETWORK CONTRACT MANAGER CPT-OV Office Visit 19:51:16 NETWORK CONTRACT MANAGER CPT-11732 Spec Collection and Handling Fee 14:34:18 NETWORK CONTRACT MANAGER CPT-PV Prev. Care Visit 14:19:18 NETWORK CONTRACT MANAGER CPT-87466 Postop F/U Visit 14:47:51 NETWORK CONTRACT MANAGER CPT-41478 Postop F/U Visit 15:15:14 NETWORK CONTRACT MANAGER CPT-48621 Postop F/U Visit 14:41:43 CDT CPT-22612 Postop F/U Visit 15:47:46 CDT CPT-OV Office Visit 15:27:23 CDT CPT-OV Office Visit 17:20:34 CDT CPT-43385 Abx/Therapy Injection 15:05:57 CDT CPT-J1100 Decadron 8mg (Dexamethasone) 14:44:57 CDT CPT-J1040 Depo Medrol 80 mg (Methyl Prednisolone Acetate) 14:44: 57 CDT CPT-JTINJ Joint Injection 10:17:37 CDT CPT-80039 Administration 2+ single or combination vaccines inc oral 13:01:46 NETWORK CONTRACT MANAGER CPT-22461 Administration single or combination vaccine inc oral 13 :01:46 NETWORK CONTRACT MANAGER CPT-32278 Pneumovax 13:01:46 NETWORK CONTRACT MANAGER CPT-90164 Influenza split virus > age 3 13:01:46 NETWORK CONTRACT MANAGER CPT-64909 Administration single or combination vaccine inc oral 08 :56:49 CDT CPT-84211 Tdap 08:56:49 CDT
--- OUTSIDE RECORDS SUMMARY | 2017-03-21 23:05 | XMS REPORT | Clinical Summary ---
Author Author Admin, MARGRET Organization [employer] Address Unknown Phone Unavailable Allergies, Adverse Reactions, Alerts Allergy Name Reaction Description Start Date Severity Status Provider VALENTIN Critical Active Rodrigo Montemayorl DIRECTOR EQUIPMENT CHLORHEXIDINE GLUCONATE tongue and gums swollen Critical Active Hoa Kabaford RMA NORFLEX Rash Critical Active Rowenaina Frazell DIRECTOR EQUIPMENT TRAZODONE HCL sees things Critical Active Dewayne [...] hx of 412 Active Hoa Otto [facility] Old myocardial infarction Pelvic pain 789.09 Resolved [...] 1 po qd PRN Allergies CETIRIZINE HCL 23719365171 Active Gab Padron MD Active CLARITIN 10 MG TAB 1 tablet by mouth daily as needed for allergies LORATADINE 52133348197 No Longer Active Gab Padron MD Active PREDNISONE 20 MG TAB take 3 tabs daily for 3 days, 2 tabs daily for 3 days, 1 tab daily for 3 days, 1/2 tab daily for 3 days PREDNISONE 04268559199 No Longer Active Tisha Lambert APRN Active TRAMADOL HCL 50 MG TABS 1 tab po every 6 hrs prn pain TRAMADOL HCL 61887892719 Active Gab Padron MD Active PREDNISONE 20 MG TAB 2 tabs daily for 3 days, 1 tab daily for 3 days, 1/2 tab daily for 2 days PREDNISONE 20996040034 No Longer Active Gab Padron MD Active ZOFRAN ODT 4 MG TBDP 1 po q6hr PRN Nausea ONDANSETRON 70498266347 Active Gab Padron MD Active IBUPROFEN 600 MG TAB 1 tablet by mouth every 6 hours for 7 days, then 1 tablet every 6 hours as needed. Take with food IBUPROFEN 65316546782 Active Rodrigo Sarah APRN Active BACTRIM DS 800-160 MG TAB 1 tab by mouth twice daily TRIMETHOPRIM-SULFAMETHOXAZOLE 32994873535 No Longer Active Gab Padron MD Active ADVAIR DISKUS 250-50 MCG/DOSE AEPB 1 puff BID FLUTICASONE- SALMETEROL 61715661066 Active Rodrigo Sarah APRN Active LEVOTHYROXINE SODIUM 75 MCG TABS Take 1 tab daily LEVOTHYROXINE SODIUM 57111510432 No Longer Active Mariana FLEMING Active SYNTHROID 88 MCG ORAL TABS Take one by mouth daily LEVOTHYROXINE SODIUM 61100045725 Active Gab Padron MD Active CHERATUSSIN AC 100-10 MG/5ML SYRP 1 tsp by mouth every 4 hours as needed for cough GUAIFENESIN-CODEINE 81425270812 No Longer Active Gab Padron MD Active POLYTRIM 81047-9.1 UNIT/ML-% SOLN 1 gtt to affected eye q3h x 7 days POLYMYXIN B-TRIMETHOPRIM 32401170627 No Longer Active Gab Padron MD Active FLUTICASONE PROPIONATE 50 MCG/ACT SUSP 1 to 2 sprays each nostril daily 04/21 FLUTICASONE PROPIONATE 74230847409 No Longer Active Gab Padron MD Active TRILEPTAL 600 MG TABS Take one 1 tablet in Am and 1 tablet at night OXCARBAZEPINE 06367451407 Active Gab Padron MD Active CEFDINIR 300 MG CAPS 1 po BID x 10 days CEFDINIR 25319920025 No Longer Active Rodrigo Sarah APRN Active CEFTIN 500 MG TAB 1 twice a day CEFUROXIME AXETIL 92578157918 No Longer Active Gab Padron MD Active AZITHROMYCIN 250 MG TABS 2 po qd x 1 day, then 1 po qd x 4 days AZITHROMYCIN 58667276497 No Longer Active Rodrigo Sarah APRN Active OXYCODONE HCL 5 MG ORAL CAPS 1 TAB PO Q HS OXYCODONE HCL 03514749994 No Longer Active Silvestrellnacho Sarah APRN Active NIASPAN 500 MG ORAL CR-TABS 1 pill nightly x 1 week, then 2 pills nightly x 1 week, then 3 pills nightly x 1 week, then 4 pills nightly NIACIN (ANTIHYPERLIPIDEMIC) 80101133468 No Longer Active Silvestrellnacho Sarah APRN Active NIACIN 500 MG TABS 1 pill by mouth nightly x 1 week, then 2 pills x 1 week, then 3 pills x 1 week, then 4 pills nightly - take after evening meal, with applesauce or an apple NIACIN 51412991021 No Longer Active Yolande Lindsay MD PhD Active FISH OIL 1000 MG CAPS 3 pills daily OMEGA-3 FATTY ACIDS 75431480638 Active Yolande Lindsay MD PhD Active TRIAMCINOLONE ACETONIDE 0.1 % CREA apply bid sparingly to rash TRIAMCINOLONE ACETONIDE 09720278879 Active Yolande Lindsay MD PhD Active FUROSEMIDE 20 MG TAB 1 tablet by mouth daily FUROSEMIDE 07403024053 Active Tisha Lambert DIRECTOR EQUIPMENT Active LISINOPRIL 20 MG ORAL TABS 1 tab by mouth daily LISINOPRIL 15263183248 Active Gab Padron MD Active FUROSEMIDE 20 MG TABS 1 pill by mouth daily, for edema FUROSEMIDE 11164661187 No Longer Active Yolande Lindsay MD PhD Active ATORVASTATIN CALCIUM 10 MG TABS 1 pill by mouth daily, for cholesterol 09/06 ATORVASTATIN CALCIUM 52951503710 Active Gab Padron MD Active CALCIUM 600+D PLUS MINERALS 600-400 MG-UNIT ORAL CHEW 1 tab by mouth daily CALCIUM CARBONATE-VIT D-MIN 28537239750 No Longer Active Yolande Lindsay MD PhD Active CYCLOBENZAPRINE HCL 10 MG TABS 1 tablet by mouth three times daily as needed for muscle spasm/pain CYCLOBENZAPRINE HCL 78410238948 Active Yolande Lindsay MD PhD Active ONDANSETRON 4 MG TBDP 1 q4h PRN nausea ONDANSETRON 37993718657 Active Yolande Lindsay MD PhD Active ADULT ASPIRIN EC LOW STRENGTH 81 MG TBEC Take 1 tablet by mouth daily 2014 ASPIRIN 77611660216 No Longer Active Yolande Lindsay MD PhD Active ZOFRAN ODT 4 MG TBDP 1 pill dissolved by mouth every 4 hours if needed for nausea ONDANSETRON 79968257294 No Longer Active Yolande Lindsay MD PhD Active CEFTIN 500 MG TAB 1 twice a day CEFUROXIME AXETIL 56212922723 No Longer Active Yolande Lindsay MD PhD Active ALBUTEROL SULFATE 0.083 % NEBU SOLN one vial per nebulizer every 4-6 hours as needed ALBUTEROL SULFATE 06562291768 No Longer Active Alexis Ordza MD Active DOXYCYCLINE HYCLATE 100 MG CAP 1 cap by mouth twice daily DOXYCYCLINE HYCLATE 57619239456 No Longer Active Yolande Lindsay MD PhD Active CYCLOBENZAPRINE HCL 10 MG TABS 1/2 - 1 tab by mouth three times daily if needed for spasms/pain CYCLOBENZAPRINE HCL 31136590093 No Longer Active Yolande Lindsay MD PhD Active AZITHROMYCIN 250 MG TABS 2 pills on day 1, then 1 pill daily x 4 days AZITHROMYCIN 19542737379 No Longer Active Yolande Lindsay MD PhD Active XOPENEX 1.25 MG/3ML NEBU 1 neb every 4 hours if needed for cough/congestion LEVALBUTEROL HCL 71168330313 No Longer Active Yolande Lindsay MD PhD Active DOXYCYCLINE HYCLATE 100 MG TAB 1 tab twice a day for 14 days 2013 DOXYCYCLINE HYCLATE 08944583021 No Longer Active Yolande Lindsay MD PhD Active PREVACID 30 MG CPDR Take 1 tablet by mouth daily-PRN LANSOPRAZOLE 49615233362 No Longer Active Yolande Lindsay MD PhD Active PA VITAMIN D-3 2000 UNIT CAPS 1 CAP PO DAILY CHOLECALCIFEROL 11388799800 No Longer Active Yolande Lindsay MD PhD Active CEFDINIR 300 MG CAPS by mouth twice a day CEFDINIR 76912918762 No Longer Active Gab Padron MD Active TOPAMAX 50 MG TABS 1 PO twice daily TOPIRAMATE 60890116385 Active Yolande Lindsay MD PhD Active AZITHROMYCIN 250 MG TABS 2 po qd x 1 day, then 1 po qd x 4 days AZITHROMYCIN 59108464578 No Longer Active Yolande Lindsay MD PhD Active DICLOFENAC SODIUM 75 MG TBEC 1 tablet by q 12 hours PRN headaches DICLOFENAC SODIUM 33938578416 No Longer Active Yolande Lindsay MD PhD Active FLONASE 50 MCG/ACT SUSP 1 spray each nostril am and hs FLUTICASONE PROPIONATE 11801751525 No Longer Active Todd Callaway MD Active ANUSOL-HC 25 MG SUPPOSITORY 1 rectally twice a day as needed for hemorrhoids HYDROCORTISONE JAYDEN (RECTAL) 33301027697 No Longer Active Yolande Lindsay MD PhD Active ANUSOL-HC 25 MG SUPPOSITORY 1 suppository rectally each evening as needed for anal fissure HYDROCORTISONE JAYDEN (RECTAL) 86239174409 No Longer Active LONNIE Iglesias Active VALIUM 5 MG TAB 1 po 30 minutes prior to your MRI DIAZEPAM 90478338209 No Longer Active LONNIE Iglesias Active METHOCARBAMOL 750 MG TABS 1 PO QID PRN METHOCARBAMOL 56777269101 No Longer Active Daphne Wetzel APRN Active NITROSTAT 0.4 MG SUBL as directed NITROGLYCERIN 36443261091 No Longer Active Rodrigo Sarah APRN Active ROBAXIN-750 750 MG TABS 2 four times a day for 3 days as needed for muscle spasm, then 1 four times a day as needed METHOCARBAMOL 29026556648 No Longer Active Rodrigo Sarah APRN Active HYDROCODONE-ACETAMINOPHEN 5-325 MG TABS 1 q 4-6 hrs prn HYDROCODONE-ACETAMINOPHEN 59431117278 No Longer Active Rodrigo Sarah APRN Active VERAPAMIL HCL CR 180 MG CR-TABS TAKE 1 TAB DAILY VERAPAMIL HCL 07418988935 No Longer Active Yolande Lindsay MD PhD Active BACTRIM DS 800-160 MG TAB 1 tab by mouth twice daily TRIMETHOPRIM-SULFAMETHOXAZOLE 70615512567 No Longer Active Yolande Lindsay MD PhD Active NEXIUM 40 MG PACK 1 by mouth daily ESOMEPRAZOLE MAGNESIUM 37788763634 No Longer Active Des Hines MD Active EPIPEN 2-CHARLETTE 0.3 MG/0.3ML OMARI as need for allergic reaction EPINEPHRINE 80048068851 Active Yolande Lindsay MD PhD Active NEXIUM 40 MG CPDR 1 PO Q D DAY ESOMEPRAZOLE MAGNESIUM 37366256461 No Longer Active Sadia Perry RN Active NEXIUM 40 MG PACK 1 by mouth daily NEXIUM 40 MG PACK ESOMEPRAZOLE MAGNESIUM Inactive VERAPAMIL HCL CR 180 MG CR-TABS TAKE 1 TAB DAILY VERAPAMIL HCL CR 180 MG CR-TABS VERAPAMIL HCL Inactive HYDROCODONE-ACETAMINOPHEN 5-325 MG TABS 1 q 4-6 hrs prn HYDROCODONE-ACETAMINOPHEN 5-325 MG TABS 073789 HYDROCODONE-ACETAMINOPHEN Inactive ROBAXIN-750 750 MG TABS 2 four times a day for 3 days as needed for muscle spasm, then 1 four times a day as needed ROBAXIN-750 750 MG TABS 615551 METHOCARBAMOL Inactive NITROSTAT 0.4 MG SUBL as directed NITROSTAT 0.4 MG SUBL 249800 NITROGLYCERIN Inactive METHOCARBAMOL 750 MG TABS 1 PO QID PRN METHOCARBAMOL 750 MG TABS 684225 METHOCARBAMOL Inactive VALIUM 5 MG TAB 1 po 30 minutes prior to your MRI VALIUM 5 MG TAB 944237 DIAZEPAM Inactive ANUSOL-HC 25 MG SUPPOSITORY 1 suppository rectally each evening as needed for anal fissure ANUSOL-HC 25 MG SUPPOSITORY 8316880 HYDROCORTISONE JAYDEN (RECTAL) Inactive ANUSOL-HC 25 MG SUPPOSITORY 1 rectally twice a day as needed for hemorrhoids ANUSOL-HC 25 MG SUPPOSITORY 2105744 HYDROCORTISONE JAYDEN (RECTAL) Inactive FLONASE 50 MCG/ACT SUSP 1 spray each nostril am and hs FLONASE 50 MCG/ACT SUSP 6426941 FLUTICASONE PROPIONATE Inactive DICLOFENAC SODIUM 75 MG TBEC 1 tablet by q 12 hours PRN headaches DICLOFENAC SODIUM 75 MG TBEC 098923 DICLOFENAC SODIUM Inactive PA VITAMIN D-3 2000 UNIT CAPS 1 CAP PO DAILY PA VITAMIN D-3 2000 UNIT CAPS CHOLECALCIFEROL Inactive PREVACID 30 MG CPDR Take 1 tablet by mouth daily-PRN PREVACID 30 MG CPDR 887247 LANSOPRAZOLE Inactive DOXYCYCLINE HYCLATE 100 MG TAB 1 tab twice a day for 14 days 2013 DOXYCYCLINE HYCLATE 100 MG TAB 7607928 DOXYCYCLINE HYCLATE Inactive XOPENEX 1.25 MG/3ML NEBU 1 neb every 4 hours if needed for cough/congestion XOPENEX 1.25 MG/3ML NEBU 122230 LEVALBUTEROL HCL Inactive CYCLOBENZAPRINE HCL 10 MG TABS 1/2 - 1 tab by mouth three times daily if needed for spasms/pain CYCLOBENZAPRINE HCL 10 MG TABS 458575 CYCLOBENZAPRINE HCL Inactive ALBUTEROL SULFATE 0.083 % NEBU SOLN one vial per nebulizer every 4-6 hours as needed ALBUTEROL SULFATE 0.083 % NEBU SOLN 098125 ALBUTEROL SULFATE Inactive CEFTIN 500 MG TAB 1 twice a day CEFTIN 500 MG TAB 320938 CEFUROXIME AXETIL Inactive ZOFRAN ODT 4 MG TBDP 1 pill dissolved by mouth every 4 hours if needed for nausea ZOFRAN ODT 4 MG TBDP 801502 ONDANSETRON Inactive ADULT ASPIRIN EC LOW STRENGTH 81 MG TBEC Take 1 tablet by mouth daily 2014 ADULT ASPIRIN EC LOW STRENGTH 81 MG TBEC 746593 ASPIRIN Inactive CALCIUM 600+D PLUS MINERALS 600-400 [...] or an apple NIACIN 500 MG TABS 595043 NIACIN Inactive NIASPAN 500 MG ORAL CR-TABS 1 pill nightly x 1 week, then 2 pills nightly x 1 week, then 3 pills nightly x 1 week, then 4 pills nightly NIASPAN 500 MG ORAL CR-TABS NIACIN (ANTIHYPERLIPIDEMIC) Inactive OXYCODONE HCL 5 MG ORAL CAPS 1 TAB PO Q HS OXYCODONE HCL 5 MG ORAL CAPS 2037840 OXYCODONE HCL Inactive FLUTICASONE PROPIONATE 50 MCG/ACT SUSP 1 to 2 sprays each nostril daily 04/21 FLUTICASONE PROPIONATE 50 MCG/ACT SUSP 1068800 FLUTICASONE PROPIONATE Inactive POLYTRIM 29553-3.1 UNIT/ML-% SOLN 1 gtt to affected eye q3h x 7 days POLYTRIM 43572-7.1 UNIT/ML-% SOLN 616540 POLYMYXIN B- TRIMETHOPRIM Inactive CHERATUSSIN AC 100-10 MG/5ML SYRP 1 tsp by mouth every 4 hours as needed for cough CHERATUSSIN AC 100-10 MG/5ML SYRP 215311 GUAIFENESIN-CODEINE Inactive LEVOTHYROXINE SODIUM 75 MCG TABS Take 1 tab daily LEVOTHYROXINE SODIUM 75 MCG TABS 893812 LEVOTHYROXINE SODIUM Inactive CLARITIN 10 MG TAB 1 tablet by mouth daily as needed for allergies CLARITIN 10 MG TAB 350000 LORATADINE Inactive BACTRIM DS 800-160 MG TAB 1 tab by mouth twice daily BACTRIM DS 800-160 MG TAB 340829 TRIMETHOPRIM-SULFAMETHOXAZOLE Inactive AZITHROMYCIN 250 MG TABS 2 po qd x 1 day, then 1 po qd x 4 days AZITHROMYCIN 250 MG TABS 0322126 AZITHROMYCIN Inactive CEFDINIR 300 MG CAPS by mouth twice a day CEFDINIR 300 MG CAPS 865473 CEFDINIR Inactive AZITHROMYCIN 250 MG TABS 2 pills on day 1, then 1 pill daily x 4 days AZITHROMYCIN 250 MG TABS 5766761 AZITHROMYCIN Inactive DOXYCYCLINE HYCLATE 100 MG CAP 1 cap by mouth twice daily DOXYCYCLINE HYCLATE 100 MG CAP 0520385 DOXYCYCLINE HYCLATE Inactive FUROSEMIDE 20 MG TABS 1 pill by mouth daily, for edema FUROSEMIDE 20 MG TABS 707444 FUROSEMIDE Inactive AZITHROMYCIN 250 MG TABS 2 po qd x 1 day, then 1 po qd x 4 days AZITHROMYCIN 250 MG TABS 0588971 AZITHROMYCIN Inactive CEFTIN 500 MG TAB 1 twice a day CEFTIN 500 MG TAB 176406 CEFUROXIME AXETIL Inactive CEFDINIR 300 MG CAPS 1 po BID x 10 days CEFDINIR 300 MG CAPS 922097 CEFDINIR Inactive BACTRIM DS 800-160 MG TAB 1 tab by mouth twice daily BACTRIM DS 800-160 MG TAB 780601 TRIMETHOPRIM-SULFAMETHOXAZOLE Inactive PREDNISONE 20 MG TAB 2 tabs daily for 3 days, 1 tab daily for 3 days, 1/2 tab daily for 2 days PREDNISONE 20 MG TAB 264808 PREDNISONE Inactive PREDNISONE 20 MG TAB take 3 tabs daily for 3 days, 2 tabs daily for 3 days, 1 tab daily for 3 days, 1/2 tab daily for 3 days PREDNISONE 20 MG TAB 486513 PREDNISONE Inactive Immunizations Vaccine Administration Date Value Standard Description Seasonal influenza vaccine, injectable, containing preservative, for > 3 years old (Afluria, FluLaval, Fluzone, Fluvirin, Fluarix, Agriflu(>=18 yo)) Fluzone (>3 yrs.) [MDM775] Influenza, seasonal, injectable influenza immunization (Flu Vax) has been administered Influenza - Unspecified Formulation [CVX88] influenza virus vaccine, unspecified formulation Seasonal influenza vaccine, injectable, containing preservative, for > 3 years old (Afluria, FluLaval, Fluzone, Fluvirin, Fluarix, Agriflu(>=18 yo)) Fluzone (>3 yrs.) [RSS343] Influenza, seasonal, injectable pneumococcal immunization administered Pneumovax 23 [CVX33] pneumococcal polysaccharide vaccine, 23 valent dT (Diphtheria and Tetanus) booster given given Td(adult) unspecified formulation Boostrix (Tetanus toxoid, reduced diphtheria toxoid and acellular pertussis vaccine, adsorbed), booster Boostrix [FND857] tetanus toxoid, reduced diphtheria toxoid, and acellular [...] Panel - Chemistry sodium, serum 142 mmol/L 050-195 6476/06/30 potassium, serum 4.4 mmol/L 3.5-5.2 chloride, serum 108 mmol/L 98-107 carbon dioxide, venous blood 25.1 mmol/L 21.0-32.0 blood glucose 82 mg/dL 65-110 calcium, serum 9.1 mg/dL 8.5-10.1 urea nitrogen, blood 18 mg/dL 7-18 creatinine, serum 1.31 mg/dL 0.55-1.30 Lab Report: Lipid Panel, HEPATIC PANEL - Chemistry cholesterol, serum 166 mg/dL 004-455 7479/12/06 triglyceride, serum, fasting 86 mg/dL 30-200 HDL [...] dipstick Negative Negative sodium, serum 142 mmol/L 217-679 8306/07/18 carbon dioxide, venous blood 27.8 mmol/L 21.0-32.0 [...] negative Encounters Code Encounter Date Provider Facility CPT-40903 Level 4 Est. Patient 13:18:33 CDT Gab Padron MD [facility] CPT-98123 Level 3 Est. Patient 15:20:50 CDT Jared Og MD [facility] CPT-18418 Level 3 Est. Patient 17:43:55 MEDICAL PARASITOLOGIST Gab Padron MD [facility] CPT-29497 Level 3 Est. Patient 17:07:49 MEDICAL PARASITOLOGIST Jared Og MD [facility] CPT-53057 Level 4 Est. Patient 19:55:18 MEDICAL PARASITOLOGIST Jared Og MD [facility] CPT-58945 Level 3 Est. Patient 20:13:34 MEDICAL PARASITOLOGIST Jared Og MD [facility] CPT-85518 Level 4 Est. Patient 16:31:27 CDT Gab Padron MD [facility] CPT-60326 Level 2 Est. Patient 12:23:38 CDT Jared Og MD [facility] CPT-07203 Level 3 Est. Patient 11:01:51 CDT Gab Padron MD [facility] CPT-47718 Level 3 Est. Patient 15:27:02 CDT Jared Og MD [facility] CPT-71799 Level 4 Est. Patient 09:25:27 CDT Gab Padron MD [facility] CPT-96226 Level 3 Est. Patient 10:29:41 CDT Rodrigo Sarah [facility]-75082 Level 4 Est. Patient 17:51:05 CDT Gab Padron MD [facility]-85956 Level 3 Est. Patient 14:18:08 CDT Gab Padron MD [facility]-58265 Level 4 Est. Patient 10:18:54 CDT Gab Padron MD [facility]-82831 Level 3 Est. Patient 11:30:07 CDT Rodrigo Sarah [facility] CPT-92392 Level 4 Est. Patient 21:02:30 MEDICAL PARASITOLOGIST Gab Padron MD [facility]-79631 Level 3 Est. Patient 11:02:19 MEDICAL PARASITOLOGIST Gab Padron MD [facility] CPT-67451 Level 4 Est. Patient 22:24:31 MEDICAL PARASITOLOGIST Gab Padron MD [facility] CPT-70765 Level 3 Est. Patient 18:33:46 MEDICAL PARASITOLOGIST Gab Padron MD [facility]-88410 Level 3 Est. Patient 16:19:11 CDT Yolande Lindsay MD [facility]-96348 Level 3 Est. Patient 18:59:14 CDT Yolande Lindsay MD [facility] CPT-47714 Level 4 Est. Patient 21:29:26 CDT Yolande Lindsay MD [facility]-59596 Level 3 Est. Patient 07:37:45 CDT Yolande Lindsay MD [facility]-40314 Level 3 Est. Patient 17:03:46 CDT Yolande Lindsay MD [facility] CPT-60268 Level 4 Est. Patient 20:02:13 MEDICAL PARASITOLOGIST Yolande Lindsay MD [facility] CPT-68967 Level 3 Est. Patient 16:02:07 MEDICAL PARASITOLOGIST Alexis Ordaz MD [facility] CPT-21081 Level 3 Est. Patient 12:41:24 MEDICAL PARASITOLOGIST Yolande Lindsay MD [facility] CPT-05819 Level 3 Est. Patient 15:41:20 MEDICAL PARASITOLOGIST Yolande Lindsay MD [facility] CPT-16356 Level 3 Est. Patient 13:20:02 MEDICAL PARASITOLOGIST Yolande Lindsay MD [facility]-85511 Level 3 Est. Patient 15:00:38 CDT Jared Og MD [facility] CPT-39261 Level 3 Est. Patient 10:22:32 CDT Yolande Lindsay MD [facility] CPT-46460 Level 3 Est. Patient 17:12:58 CDT Yolande Lindsay MD [facility] CPT-06379 Level 4 Est. Patient 13:30:58 CDT Yolande Lindsay MD [facility] CPT-89915 Level 4 New Patient 09:02:42 CDT Jared Og MD [facility]-88671 Level 3 Est. Patient 08:19:07 CDT Yolande Lindsay MD [facility] CPT-19391 Level 3 Est. Patient 12:00:13 MEDICAL PARASITOLOGIST Gab Padron MD [facility] CPT-31503 Level 3 Est. Patient 16:15:23 MEDICAL PARASITOLOGIST Yolande Lindsay MD [facility] CPT-11097 Level 2 Est. Patient 19:47:15 CDT Yolande Lindsay MD [facility]-54541 Level 3 Est. Patient 21:38:31 CDT Yolande Lindsay MD [facility]-51940 Level 3 Est. Patient 10:25:12 CDT Adiel PERAZA [facility]-28177 Level 4 Est. Patient 10:51:58 CDT Yolande Lindsay MD [facility]-59184 Level 3 Est. Patient 14:04:55 MEDICAL PARASITOLOGIST Rodrigo Sarah [facility]-26597 Level 3 Est. Patient 10:46:35 MEDICAL PARASITOLOGIST Rodrigo Sarah [facility]-64577 Level 3 Est. Patient 14:24:37 MEDICAL PARASITOLOGIST Yolande Lindsay MD [facility]-69772 Level 3 Est. Patient 17:41:58 MEDICAL PARASITOLOGIST Yolande Lindsay MD [facility]-76675 Level 2 Est. Patient 22:01:41 MEDICAL PARASITOLOGIST Rodrigo Sarah [facility] CPT-55289 Level 2 Est. Patient 22:01:11 MEDICAL PARASITOLOGIST Rodrigo Sarah [facility]-27982 Level 3 Est. Patient 10:12:29 MEDICAL PARASITOLOGIST Rodrigo Sarah [facility] CPT-49352 Level 3 Est. Patient 11:05:44 CDT Alexis Ordaz MD [facility]-79091 Level 3 Est. Patient 14:57:20 CDT Yolande Lindsay MD [facility]-90129 Level 3 Est. Patient 14:40:57 CDT Yolande Lindsay MD [facility]-25223 Level 3 Est. Patient 20:55:40 CDT Yolande Lindsay MD [facility]-26937 Level 3 Est. Patient 12:42:38 MEDICAL PARASITOLOGIST Yolande Lindsay MD PhD [facility] CPT-56512 Level 3 Est. Patient 11:54:49 MEDICAL PARASITOLOGIST Des Hines MD [facility] CPT-55802 Level 3 Est. Patient 17:06:38 CDT Dewayne PERAZA [facility] Procedures Code Procedure Name Date Entry Date Standard Description CPT-J2930 Solu Medrol 125 mg (Methyl Prednisolone Sodium Succinate) 13:19:02 CDT CPT-65556 Abx/Therapy Injection 13:19:02 CDT CPT-J2930 Solu Medrol 125 mg (Methyl Prednisolone Sodium Succinate) 13:05:03 CDT CPT-38381 Hip, complete, 2-3 views - XRAY USE ONLY 17:19:04 MEDICAL PARASITOLOGIST CPT-37009 Venipuncture Draw Fee 08:37:59 MEDICAL PARASITOLOGIST CPT-94773 Liver Profile - LAB USE ONLY 08:37:59 MEDICAL PARASITOLOGIST CPT-71409 Lipid - LAB USE ONLY 08:37:58 MEDICAL PARASITOLOGIST CPT-76307 First Vx - Ix admin via ID IM or jet injects without counseling by physician 11:52:31 CDT CPT-14811 Fluzone Preservative Free Intramuscular Suspension 11:52 :31 CDT CPT-63873 Foot, left, comp min 3V - XRAY USE ONLY 09:24:54 CDT CPT-08445 Abd single AP View - XRAY USE ONLY 11:16:17 CDT CPT-26237 T spine AP/ Lat - XRAY USE ONLY 09:34:21 CDT CPT-95303 Chest 2V Frontal and Lat - XRAY USE ONLY 10:48:51 CDT CPT-84361 LS spine comp w obliq 13:28:00 MEDICAL PARASITOLOGIST CPT-J1040 Depo Medrol 80 mg (Methyl Prednisolone Acetate) 10:51: 28 MEDICAL PARASITOLOGIST CPT-J1100 Decadron 8mg (Dexamethasone) 10:51:28 MEDICAL PARASITOLOGIST CPT-99873 Abx/Therapy Injection 10:51:28 MEDICAL PARASITOLOGIST CPT-J1100 Decadron 8mg (Dexamethasone) 21:02:30 MEDICAL PARASITOLOGIST CPT-J1040 Depo Medrol 80 mg (Methyl Prednisolone Acetate) 21:02: 30 MEDICAL PARASITOLOGIST [id number] Event Monitor - MC Transmission 09:12:32 CDT 08/06 [id number] Event Monitor - MC review and interp 09:12:32 CDT [id number] Event Monitor - MC recording 09:12:32 CDT CPT-00570 EKG Trac and Interp 16:50:22 CDT CPT-J1030 Depo Medrol 40 mg (Methyl Prednisolone Acetate) 17:05: 54 CDT CPT-J1100 Decadron 4mg (Dexamethasone) 17:05:54 CDT CPT-61952 Abx/Therapy Injection 17:05:54 CDT CPT-J1100 Decadron 4mg (Dexamethasone) 16:55:28 CDT CPT-J1030 Depo Medrol 40 mg (Methyl Prednisolone Acetate) 16:55: 28 CDT CPT-72273 Ankle Complete - Min 3V 15:58:50 CDT CPT-33192 Knee 3V 15:58:50 CDT CPT-97894 Hip comp min 2V 15:58:50 CDT CPT-J2270 Morphine Sulfate 10 mg 14:25:44 MEDICAL PARASITOLOGIST CPT-J2550 Phenergan 12.5 mg (Promethazine) 14:25:44 MEDICAL PARASITOLOGIST CPT-08063 Abx/Therapy Injection 14:25:44 MEDICAL PARASITOLOGIST CPT-J2550 Phenergan 12.5 mg (Promethazine) 14:08:03 MEDICAL PARASITOLOGIST CPT-J2270 Morphine Sulfate 10 mg 14:08:03 MEDICAL PARASITOLOGIST CPT-96871 Bladder Scan 15:00:38 CDT CPT-TCMM Transitional Care Mgmt-Moderate 09:52:22 CDT CPT-J1030 Depo Medrol 40 mg (Methyl Prednisolone Acetate) 10:55: 18 CDT CPT-J1100 Decadron 4mg (Dexamethasone) 10:55:18 CDT CPT-18772 Abx/Therapy Injection 10:55:18 CDT CPT-J1030 Depo Medrol 40 mg (Methyl Prednisolone Acetate) 10:22: 32 CDT CPT-J1100 Decadron 4mg (Dexamethasone) 10:22:32 CDT CPT-98933 Postop F/U Visit 14:37:13 CDT CPT-58229 Ankle Complete - Min 3V 17:11:58 CDT CPT-78615 Foot comp min 3V 17:11:58 CDT CPT-08796 Bladder Scan 09:56:58 CDT CPT-34314 Postop F/U Visit 09:56:58 CDT CPT-40912 Cystoscopy 09:02:42 CDT CPT-09736 Bladder Scan 09:02:42 CDT CPT-03550 Abd single AP View 16:00:35 CDT CPT-57570 Administration single or combination vaccine inc oral 10 :15:43 CDT CPT-54577 Influenza split virus > age 3 10:15:43 CDT CPT-20978 Nail Avulsion 09:24:57 CDT CPT-OV Office Visit 11:15:41 CDT CPT-98962 Abx/Therapy Injection 10:51:30 CDT CPT-J3301 Kenalog 40 mg (Triamcinolone Acetonide) 10:25:12 CDT CPT-J1100 Decadron 4mg (Dexamethasone) 10:25:12 CDT CPT-02148 Anoscopy diagnostic 10:36:12 CDT CPT-OV Office Visit 15:34:31 CDT CPT-87958 Abx/Therapy Injection 08:21:15 MEDICAL PARASITOLOGIST CPT-J1885 Toradol 60 mg (Ketorolac) 10:46:35 MEDICAL PARASITOLOGIST CPT-OV Office Visit 19:51:16 MEDICAL PARASITOLOGIST CPT-53872 Spec Collection and Handling Fee 14:34:18 MEDICAL PARASITOLOGIST CPT-PV Prev. Care Visit 14:19:18 MEDICAL PARASITOLOGIST CPT-61835 Postop F/U Visit 14:47:51 MEDICAL PARASITOLOGIST CPT-23063 Postop F/U Visit 15:15:14 MEDICAL PARASITOLOGIST CPT-87254 Postop F/U Visit 14:41:43 CDT CPT-12373 Postop F/U Visit 15:47:46 CDT CPT-OV Office Visit 15:27:23 CDT CPT-OV Office Visit 17:20:34 CDT CPT-65641 Abx/Therapy Injection 15:05:57 CDT CPT-J1100 Decadron 8mg (Dexamethasone) 14:44:57 CDT CPT-J1040 Depo Medrol 80 mg (Methyl Prednisolone Acetate) 14:44: 57 CDT CPT-JTINJ Joint Injection 10:17:37 CDT CPT-12316 Administration 2+ single or combination vaccines inc oral 13:01:46 MEDICAL PARASITOLOGIST CPT-18859 Administration single or combination vaccine inc oral 13 :01:46 MEDICAL PARASITOLOGIST CPT-49547 Pneumovax 13:01:46 MEDICAL PARASITOLOGIST CPT-04178 Influenza split virus > age 3 13:01:46 MEDICAL PARASITOLOGIST CPT-78384 Administration single or combination vaccine inc oral 08 :56:49 CDT CPT-01803 Tdap 08:56:49 CDT
--- OUTSIDE RECORDS SUMMARY | 2017-03-21 23:06 | XMS REPORT ---
Author Author [facility] [employer] [facility] Medical Staff Organization [facility] Address [address] [place] [id number] Phone [phone] Care Team Providers Care Computer Science Instructor Name Role Phone LENKA HUTSON, EUNICE PP [phone] Summary purpose TRANSITION OF CARE AUTO GENERATION [...] Status Finding Observation Time Abdomen Appearance obese :45 Abdomen non-tender [id number] Bowel Sounds present :45 Urination normal [id number]:45 Quality sym/unlabored :45 Cough absent :45 Secretions no :45 Breath Sounds RUL clear :45 Breath Sounds RML clear :45 Breath Sounds RLL clear :45 Breath Sounds LESLIE clear :45 Breath Sounds LLL clear :45 Airway natural :45 Oxygen no :30 Temp >100.4 no :45 Temp <96.8 no :45 Chills with rigors no : HR > 90bpm no :45 Respirations > 20 no : Systolic <90 no : headache stiff neck no :45 Rapid Resp no :45 Nursing Note Dismissed home per Uma Harry PA-C. Discharge instructions given and understood by pt and spouse. Wheeled to exit in stable condition. :30 Vital signs Type Value Date Respiration Rate 18breaths per minute :30 Pulse 70beats per minute :30 Oxygen Saturation 96% :30 BP Systolic 128mmHg :30 BP Diastolic 78mmHg :30 Temperature 98.1F :30 Social history Type Value Smoking Status FORMER SMOKER Treatment Plan No treatment plan text is available for this visit. Hospital discharge instructions Dismissal Condition good Disposition on DC home DC Inst/Educ Give yes Med/Side Effects Rev yes PNE Vac 2010 Flu Vac 2013 Tetanus Vac 2009
--- OUTSIDE RECORDS SUMMARY | 2017-03-21 23:08 | XMS REPORT | Clinical Summary ---
Author Author Admin, E Organization [facility] Address Unknown Phone Unavailable Allergies, Adverse Reactions, Alerts Allergy Name Reaction Description Start Date Severity Status Provider VALENTIN Critical Active Rodrigo Fracharlottel ETHNIC STUDIES PROFESSOR CHLORHEXIDINE GLUCONATE tongue and gums swollen Critical Active Hoaadnte Otto RMA NORFLEX Rash Critical Active Silvestrellina Frazell ETHNIC STUDIES PROFESSOR TRAZODONE HCL sees things Critical Active [...] facility Ankle pain, right 719.47 Resolved Yolande Lindsya MD PhD Pain in joint involving ankle [...] pelvic region and thigh Palpitations 785.1 Active oYlande Lindsay MD PhD Palpitations Crystalline deposits in [...] MD Lumbago Cough 786.2 Active Jillina Tyrel ETHNIC STUDIES PROFESSOR Cough 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 Jillina Frazellilian ETHNIC STUDIES PROFESSOR 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 Anemia 285.9 Active Gab Padron MD Anemia, unspecified Conjunctivitis 372.30 Active Jillnacho Sarah APRN Conjunctivitis, unspecified Sinusitis 473.9 Active Silvestrellina Frazell ETHNIC STUDIES PROFESSOR Unspecified sinusitis (chronic) Nonspecific syndrome suggestive of viral illness 079.99 Active Jillina Frazell ETHNIC STUDIES PROFESSOR Unspecified viral infection Laryngitis 464.00 Active Jillina Frazell ETHNIC STUDIES PROFESSOR Acute laryngitis without mention of obstruction Abdominal [...] Flank pain, left 789.09 Active Jillina Frazell ETHNIC STUDIES PROFESSOR Abdominal pain, other specified site; multiple sites Abdominal pain, generalized 789.07 Active Jillina Farshadzell ETHNIC STUDIES PROFESSOR Abdominal pain, generalized Back pain, thoracic region, left 724.1 Active Jillina Frazell ETHNIC STUDIES PROFESSOR Pain in thoracic spine Abdominal pain, left [...] every 6 hrs prn pain TRAMADOL HCL 88087982239 Active Gab Padron MD Active PREDNISONE 20 MG TAB 2 tabs daily for 3 days, 1 tab daily for 3 days, 1/2 tab daily for 2 days PREDNISONE 55697292861 No Longer Active Gab Padron MD Active ZOFRAN ODT 4 MG TBDP 1 po q6hr PRN Nausea ONDANSETRON 57119088725 Active Gab Padron MD Active IBUPROFEN 600 MG TAB 1 tablet by mouth every 6 hours for 7 days, then 1 tablet every 6 hours as needed. Take with food IBUPROFEN 91667408821 Active Jillina Frazell ETHNIC STUDIES PROFESSOR Active BACTRIM DS 800-160 MG TAB 1 tab by mouth twice daily TRIMETHOPRIM-SULFAMETHOXAZOLE 06751929439 No Longer Active Gab Padron MD Active ADVAIR DISKUS 250-50 MCG/DOSE AEPB 1 puff BID FLUTICASONE- SALMETEROL 00998692475 Active Silvestrellnacho Sarah APRN Active LEVOTHYROXINE SODIUM 75 MCG TABS Take 1 tab daily LEVOTHYROXINE SODIUM 27974249849 No Longer Active Mariana FLEMING Active SYNTHROID 88 MCG ORAL TABS Take one by mouth daily LEVOTHYROXINE SODIUM 81782615572 Active Gab Padron MD Active CHERATUSSIN AC 100-10 MG/5ML SYRP 1 tsp by mouth every 4 hours as needed for cough GUAIFENESIN-CODEINE 65421500123 No Longer Active Gab Padron MD Active POLYTRIM 13955-7.1 UNIT/ML-% SOLN 1 gtt to affected eye q3h x 7 days POLYMYXIN B-TRIMETHOPRIM 99813872029 No Longer Active Gab Padron MD Active FLUTICASONE PROPIONATE 50 MCG/ACT SUSP 1 to 2 sprays each nostril daily 04/21 FLUTICASONE PROPIONATE 04725082866 No Longer Active Gab Padron MD Active TRILEPTAL 600 MG TABS Take one 1 tablet in Am and 1 tablet at night OXCARBAZEPINE 93491917628 Active Gab Padron MD Active CEFDINIR 300 MG CAPS 1 po BID x 10 days CEFDINIR 70479672868 No Longer Active Rodrigo Sarah APRN Active CEFTIN 500 MG TAB 1 twice a day CEFUROXIME AXETIL 24313159981 No Longer Active Gab Padron MD Active AZITHROMYCIN 250 MG TABS 2 po qd x 1 day, then 1 po qd x 4 days AZITHROMYCIN 69964345568 No Longer Active Rodrigo Sarah APRN Active CLARITIN 10 MG TAB 1 tablet by mouth daily as needed for allergies LORATADINE 06494541546 Active Rodrigo Sarah APRN Active OXYCODONE HCL 5 MG ORAL CAPS 1 TAB PO Q HS OXYCODONE HCL 06744838830 No Longer Active Rodrigo Sarah APRN Active NIASPAN 500 MG ORAL CR-TABS 1 pill nightly x 1 week, then 2 pills nightly x 1 week, then 3 pills nightly x 1 week, then 4 pills nightly NIACIN (ANTIHYPERLIPIDEMIC) 70671703588 No Longer Active Rodrigo Sarah APRN Active NIACIN 500 MG TABS 1 pill by mouth nightly x 1 week, then 2 pills x 1 week, then 3 pills x 1 week, then 4 pills nightly - take after evening meal, with applesauce or an apple NIACIN 25655335846 No Longer Active Yolande Lindsay MD PhD Active FISH OIL 1000 MG CAPS 3 pills daily OMEGA-3 FATTY ACIDS 17154920590 Active Yolande Lindsay MD PhD Active TRIAMCINOLONE ACETONIDE 0.1 % CREA apply bid sparingly to rash TRIAMCINOLONE ACETONIDE 65521240938 Active Yolande Lindsay MD PhD Active FUROSEMIDE 20 MG TAB 1 tablet by mouth daily FUROSEMIDE 80521160912 Active Tisha Lambert APRN Active LISINOPRIL 20 MG ORAL TABS 1 tab by mouth daily LISINOPRIL 45471448641 Active Tisha Lambert APRN Active FUROSEMIDE 20 MG TABS 1 pill by mouth daily, for edema FUROSEMIDE 69391173105 No Longer Active Yolande Lindsay MD PhD Active ATORVASTATIN CALCIUM 10 MG TABS 1 pill by mouth daily, for cholesterol 09/06 ATORVASTATIN CALCIUM 56207514055 Active Gab Padron MD Active CALCIUM 600+D PLUS MINERALS 600-400 MG-UNIT ORAL CHEW 1 tab by mouth daily CALCIUM CARBONATE-VIT D-MIN 06715348710 No Longer Active Yolande Lindsay MD PhD Active CYCLOBENZAPRINE HCL 10 MG TABS 1 tablet by mouth three times daily as needed for muscle spasm/pain CYCLOBENZAPRINE HCL 15522409748 Active Yolande Lindasy MD PhD Active ONDANSETRON 4 MG TBDP 1 q4h PRN nausea ONDANSETRON 66565016925 Active Yolande Lindsay MD PhD Active ADULT ASPIRIN EC LOW STRENGTH 81 MG TBEC Take 1 tablet by mouth daily 2014 ASPIRIN 97269171736 No Longer Active Yolande Lindsay MD PhD Active ZOFRAN ODT 4 MG TBDP 1 pill dissolved by mouth every 4 hours if needed for nausea ONDANSETRON 27906108650 No Longer Active Yolande Lindsay MD PhD Active CEFTIN 500 MG TAB 1 twice a day CEFUROXIME AXETIL 77630934498 No Longer Active Yolande Lindsay MD PhD Active ALBUTEROL SULFATE 0.083 % NEBU SOLN one vial per nebulizer every 4-6 hours as needed ALBUTEROL SULFATE 22195805337 No Longer Active Alexis Ordaz MD Active DOXYCYCLINE HYCLATE 100 MG CAP 1 cap by mouth twice daily DOXYCYCLINE HYCLATE 92969182049 No Longer Active Yolande Lindsay MD PhD Active CYCLOBENZAPRINE HCL 10 MG TABS 1/2 - 1 tab by mouth three times daily if needed for spasms/pain CYCLOBENZAPRINE HCL 70128060162 No Longer Active Yolande Lindsay MD PhD Active AZITHROMYCIN 250 MG TABS 2 pills on day 1, then 1 pill daily x 4 days AZITHROMYCIN 50368674527 No Longer Active Yolande Lindsay MD PhD Active XOPENEX 1.25 MG/3ML NEBU 1 neb every 4 hours if needed for cough/congestion LEVALBUTEROL HCL 10945822408 No Longer Active Yolande Lindsay MD PhD Active DOXYCYCLINE HYCLATE 100 MG TAB 1 tab twice a day for 14 days 2013 DOXYCYCLINE HYCLATE 11866915401 No Longer Active Yolande Lindsay MD PhD Active PREVACID 30 MG CPDR Take 1 tablet by mouth daily-PRN LANSOPRAZOLE 51595775612 No Longer Active Yolande Lindsay MD PhD Active PA VITAMIN D-3 2000 UNIT CAPS 1 CAP PO DAILY CHOLECALCIFEROL 34928857453 No Longer Active Yolande Lindsay MD PhD Active CEFDINIR 300 MG CAPS by mouth twice a day CEFDINIR 67241215667 No Longer Active Gab Padron MD Active TOPAMAX 50 MG TABS 1 PO twice daily TOPIRAMATE 76746740810 Active Yolande Lindsay MD PhD Active AZITHROMYCIN 250 MG TABS 2 po qd x 1 day, then 1 po qd x 4 days AZITHROMYCIN 66333362832 No Longer Active Yolande Lindsay MD PhD Active DICLOFENAC SODIUM 75 MG TBEC 1 tablet by q 12 hours PRN headaches DICLOFENAC SODIUM 14741956152 No Longer Active Yolande Lindsay MD PhD Active FLONASE 50 MCG/ACT SUSP 1 spray each nostril am and hs FLUTICASONE PROPIONATE 67449734773 No Longer Active Todd Callaway MD Active ANUSOL-HC 25 MG SUPPOSITORY 1 rectally twice a day as needed for hemorrhoids HYDROCORTISONE JAYDEN (RECTAL) 04807641488 No Longer Active Yolande Lindsay MD PhD Active ANUSOL-HC 25 MG SUPPOSITORY 1 suppository rectally each evening as needed for anal fissure HYDROCORTISONE JAYDEN (RECTAL) 69727635810 No Longer Active LONNIE Iglesias Active VALIUM 5 MG TAB 1 po 30 minutes prior to your MRI DIAZEPAM 63985075375 No Longer Active Bozena LONNIE Coleman Active METHOCARBAMOL 750 MG TABS 1 PO QID PRN METHOCARBAMOL 32466558569 No Longer Active Daphne Wetzel ETHNIC STUDIES PROFESSOR Active NITROSTAT 0.4 MG SUBL as directed NITROGLYCERIN 53025637851 No Longer Active Rodrigo Sarah ETHNIC STUDIES PROFESSOR Active ROBAXIN-750 750 MG TABS 2 four times a day for 3 days as needed for muscle spasm, then 1 four times a day as needed METHOCARBAMOL 12762528073 No Longer Active Rodrigo Sarah APRN Active HYDROCODONE-ACETAMINOPHEN 5-325 MG TABS 1 q 4-6 hrs prn HYDROCODONE-ACETAMINOPHEN 81625559936 No Longer Active Rodrigo Sarah APRN Active VERAPAMIL HCL CR 180 MG CR-TABS TAKE 1 TAB DAILY VERAPAMIL HCL 22668639871 No Longer Active Yolande Lindsay MD PhD Active BACTRIM DS 800-160 MG TAB 1 tab by mouth twice daily TRIMETHOPRIM-SULFAMETHOXAZOLE 68076445724 No Longer Active Yolande Lindsay MD PhD Active NEXIUM 40 MG PACK 1 by mouth daily ESOMEPRAZOLE MAGNESIUM 60949902168 No Longer Active Des Hines MD Active EPIPEN 2-CHARLETTE 0.3 MG/0.3ML OMARI as need for allergic reaction EPINEPHRINE 57455862148 Active Yolande Lindsay MD PhD Active NEXIUM 40 MG CPDR 1 PO Q D DAY ESOMEPRAZOLE MAGNESIUM 42217000478 No Longer Active Sadia Perry RN Active NEXIUM 40 MG PACK 1 by mouth daily NEXIUM 40 MG PACK ESOMEPRAZOLE MAGNESIUM Inactive VERAPAMIL HCL CR 180 MG CR-TABS TAKE 1 TAB DAILY VERAPAMIL HCL CR 180 MG CR-TABS VERAPAMIL HCL Inactive HYDROCODONE-ACETAMINOPHEN 5-325 MG TABS 1 q 4-6 hrs prn HYDROCODONE-ACETAMINOPHEN 5-325 MG TABS 054489 HYDROCODONE-ACETAMINOPHEN Inactive ROBAXIN-750 750 MG TABS 2 four times a day for 3 days as needed for muscle spasm, then 1 four times a day as needed ROBAXIN-750 750 MG TABS 077242 METHOCARBAMOL Inactive NITROSTAT 0.4 MG SUBL as directed NITROSTAT 0.4 MG SUBL 337762 NITROGLYCERIN Inactive METHOCARBAMOL 750 MG TABS 1 PO QID PRN METHOCARBAMOL 750 MG TABS 182508 METHOCARBAMOL Inactive VALIUM 5 MG TAB 1 po 30 minutes prior to your MRI VALIUM 5 MG TAB 965426 DIAZEPAM Inactive ANUSOL-HC 25 MG SUPPOSITORY 1 suppository rectally each evening as needed for anal fissure ANUSOL-HC 25 MG SUPPOSITORY 5944091 HYDROCORTISONE JAYDEN (RECTAL) Inactive ANUSOL-HC 25 MG SUPPOSITORY 1 rectally twice a day as needed for hemorrhoids ANUSOL-HC 25 MG SUPPOSITORY 5595138 HYDROCORTISONE JAYDEN (RECTAL) Inactive FLONASE 50 MCG/ACT SUSP 1 spray each nostril am and hs FLONASE 50 MCG/ACT SUSP FLUTICASONE PROPIONATE Inactive DICLOFENAC SODIUM 75 MG TBEC 1 tablet by q 12 hours PRN headaches DICLOFENAC SODIUM 75 MG TBEC 363981 DICLOFENAC SODIUM Inactive PA VITAMIN D-3 2000 UNIT CAPS 1 CAP PO DAILY PA VITAMIN D-3 2000 UNIT CAPS CHOLECALCIFEROL Inactive PREVACID 30 MG CPDR Take 1 tablet by mouth daily-PRN PREVACID 30 MG CPDR 437989 LANSOPRAZOLE Inactive DOXYCYCLINE HYCLATE 100 MG TAB 1 tab twice a day for 14 days 2013 DOXYCYCLINE HYCLATE 100 MG TAB 1826603 DOXYCYCLINE HYCLATE Inactive XOPENEX 1.25 MG/3ML NEBU 1 neb every 4 hours if needed for cough/congestion XOPENEX 1.25 MG/3ML NEBU 434781 LEVALBUTEROL HCL Inactive CYCLOBENZAPRINE HCL 10 MG TABS 1/2 - 1 tab by mouth three times daily if needed for spasms/pain CYCLOBENZAPRINE HCL 10 MG TABS 350181 CYCLOBENZAPRINE HCL Inactive ALBUTEROL SULFATE 0.083 % NEBU SOLN one vial per nebulizer every 4-6 hours as needed ALBUTEROL SULFATE 0.083 % NEBU SOLN 890064 ALBUTEROL SULFATE Inactive CEFTIN 500 MG TAB 1 twice a day CEFTIN 500 MG TAB 680301 CEFUROXIME AXETIL Inactive ZOFRAN ODT 4 MG TBDP 1 pill dissolved by mouth every 4 hours if needed for nausea ZOFRAN ODT 4 MG TBDP 367132 ONDANSETRON Inactive ADULT ASPIRIN EC LOW STRENGTH 81 MG TBEC Take 1 tablet by mouth daily 2014 ADULT ASPIRIN EC LOW STRENGTH 81 MG TBEC 987330 ASPIRIN Inactive CALCIUM 600+D PLUS MINERALS 600-400 [...] or an apple NIACIN 500 MG TABS 064834 NIACIN Inactive NIASPAN 500 MG ORAL CR-TABS 1 pill nightly x 1 week, then 2 pills nightly x 1 week, then 3 pills nightly x 1 week, then 4 pills nightly NIASPAN 500 MG ORAL CR-TABS NIACIN (ANTIHYPERLIPIDEMIC) Inactive OXYCODONE HCL 5 MG ORAL CAPS 1 TAB PO Q HS OXYCODONE HCL 5 MG ORAL CAPS 3303041 OXYCODONE HCL Inactive FLUTICASONE PROPIONATE 50 MCG/ACT SUSP 1 to 2 sprays each nostril daily 04/21 FLUTICASONE PROPIONATE 50 MCG/ACT SUSP 8553183 FLUTICASONE PROPIONATE Inactive POLYTRIM 35650-0.1 UNIT/ML-% SOLN 1 gtt to affected eye q3h x 7 days POLYTRIM 24271-4.1 UNIT/ML-% SOLN 254216 POLYMYXIN B- TRIMETHOPRIM Inactive CHERATUSSIN AC 100-10 MG/5ML SYRP 1 tsp by mouth every 4 hours as needed for cough CHERATUSSIN AC 100-10 MG/5ML SYRP 500407 GUAIFENESIN-CODEINE Inactive LEVOTHYROXINE SODIUM 75 MCG TABS Take 1 tab daily LEVOTHYROXINE SODIUM 75 MCG TABS 399951 LEVOTHYROXINE SODIUM Inactive BACTRIM DS 800-160 MG TAB 1 tab by mouth twice daily BACTRIM DS 800-160 MG TAB 935696 TRIMETHOPRIM-SULFAMETHOXAZOLE Inactive AZITHROMYCIN 250 MG TABS 2 po qd x 1 day, then 1 po qd x 4 days AZITHROMYCIN 250 MG TABS 8232898 AZITHROMYCIN Inactive CEFDINIR 300 MG CAPS by mouth twice a day CEFDINIR 300 MG CAPS 391800 CEFDINIR Inactive AZITHROMYCIN 250 MG TABS 2 pills on day 1, then 1 pill daily x 4 days AZITHROMYCIN 250 MG TABS 3664614 AZITHROMYCIN Inactive DOXYCYCLINE HYCLATE 100 MG CAP 1 cap by mouth twice daily DOXYCYCLINE HYCLATE 100 MG CAP 6739724 DOXYCYCLINE HYCLATE Inactive FUROSEMIDE 20 MG TABS 1 pill by mouth daily, for edema FUROSEMIDE 20 MG TABS 377902 FUROSEMIDE Inactive AZITHROMYCIN 250 MG TABS 2 po qd x 1 day, then 1 po qd x 4 days AZITHROMYCIN 250 MG TABS 5679866 AZITHROMYCIN Inactive CEFTIN 500 MG TAB 1 twice a day CEFTIN 500 MG TAB 946428 CEFUROXIME AXETIL Inactive CEFDINIR 300 MG CAPS 1 po BID x 10 days CEFDINIR 300 MG CAPS 036546 CEFDINIR Inactive BACTRIM DS 800-160 MG TAB 1 tab by mouth twice daily BACTRIM DS 800-160 MG TAB 395222 TRIMETHOPRIM-SULFAMETHOXAZOLE Inactive PREDNISONE 20 MG TAB 2 tabs daily for 3 days, 1 tab daily for 3 days, 1/2 tab daily for 2 days PREDNISONE 20 MG TAB 073662 PREDNISONE Inactive Immunizations Vaccine Administration Date Value Standard Description Seasonal influenza vaccine, injectable, containing preservative, for > 3 years old (Afluria, FluLaval, Fluzone, Fluvirin, Fluarix, Agriflu(>=18 yo)) Fluzone (>3 yrs.) [OTI253] Influenza, seasonal, injectable influenza immunization (Flu Vax) has been administered Influenza - Unspecified Formulation [CVX88] influenza virus vaccine, unspecified formulation Seasonal influenza vaccine, injectable, containing preservative, for > 3 years old (Afluria, FluLaval, Fluzone, Fluvirin, Fluarix, Agriflu(>=18 yo)) Fluzone (>3 yrs.) [UXS361] Influenza, seasonal, injectable pneumococcal immunization administered Pneumovax 23 [CVX33] pneumococcal polysaccharide vaccine, 23 valent dT (Diphtheria and Tetanus) booster given given Td(adult) unspecified formulation Boostrix (Tetanus toxoid, reduced diphtheria toxoid and acellular pertussis vaccine, adsorbed), booster Boostrix [GLK499] tetanus toxoid, reduced diphtheria toxoid, and acellular [...] Panel - Chemistry sodium, serum 142 mmol/L 541-920 5955/06/30 potassium, serum 4.4 mmol/L 3.5-5.2 chloride, serum [...] 0.80 ng/dL 0.76-1.46 sodium, serum 143 mmol/L 041-313 0493/05/02 carbon dioxide, venous blood 25.6 mmol/L 21.0-32.0 [...] PANEL - Chemistry cholesterol, serum 166 mg/dL 792-319 8057/12/06 triglyceride, serum, fasting 86 mg/dL 30-200 HDL [...] Negative mg/dL Negative sodium, serum 142 mmol/L 203-402 7896/07/18 carbon dioxide, venous blood 27.8 mmol/L 21.0-32.0 [...] negative Encounters Code Encounter Date Provider Facility CPT-27654 Level 3 Est. Patient 17:43:55 NUT ROASTER Gab Padron MD [facility] CPT-86270 Level 3 Est. Patient 17:07:49 NUT ROASTER Jared Og MD [facility] CPT-77762 Level 4 Est. Patient 19:55:18 NUT ROASTER Jared Og MD [facility] CPT-69521 Level 3 Est. Patient 20:13:34 GLO Og MD [facility] CPT-51570 Level 4 Est. Patient 16:31:27 CDT Gab Padron MD [facility] CPT-88672 Level 2 Est. Patient 12:23:38 CDT Jared Og MD [facility] CPT-71235 Level 3 Est. Patient 11:01:51 CDT Gab Padron MD [facility] CPT-46606 Level 3 Est. Patient 15:27:02 CDT Jared Og MD [facility] CPT-47243 Level 4 Est. Patient 09:25:27 CDT Gab Padron MD [facility] CPT-03073 Level 3 Est. Patient 10:29:41 CDT Rodrigo Sarah [facility] CPT-40695 Level 4 Est. Patient 17:51:05 CDT Gab Padron MD [facility]-53076 Level 3 Est. Patient 14:18:08 CDT Gab Padron MD [facility] CPT-41743 Level 4 Est. Patient 10:18:54 CDT Gba Padron MD [facility] CPT-06049 Level 3 Est. Patient 11:30:07 CDT Rodrigo Sarah [facility] CPT-13321 Level 4 Est. Patient 21:02:30 NUT ROASTER Gab Padron MD [facility] CPT-00805 Level 3 Est. Patient 11:02:19 NUT ROASTER Gab Padron MD [facility] CPT-69664 Level 4 Est. Patient 22:24:31 NUT ROASTER Gab Padron MD [facility] CPT-37640 Level 3 Est. Patient 18:33:46 NUT ROASTER Gab Padron MD [facility] CPT-06411 Level 3 Est. Patient 16:19:11 CDT Yolande Lindsay MD [facility] CPT-19683 Level 3 Est. Patient 18:59:14 CDT Yolande Lindsay MD [facility] CPT-36181 Level 4 Est. Patient 21:29:26 CDT Yolande Lindsay MD [facility]-81122 Level 3 Est. Patient 07:37:45 CDT Yolande Lindsay MD [facility]-38628 Level 3 Est. Patient 17:03:46 CDT Yolande Lindsay MD [facility]-19251 Level 4 Est. Patient 20:02:13 NUT ROASTER Yolande Lindsay MD [facility]-23186 Level 3 Est. Patient 16:02:07 NUT ROASTER Alexis Ordaz MD [facility]-36993 Level 3 Est. Patient 12:41:24 NUT ROASTER Yolande Lindsay MD [facility]-65582 Level 3 Est. Patient 15:41:20 NUT ROASTER Yolande Lindsay MD [facility]-34736 Level 3 Est. Patient 13:20:02 NUT ROASTER Yolande Lindsay MD [facility] CPT-61705 Level 3 Est. Patient 15:00:38 CDT Jared Og MD [facility]-60766 Level 3 Est. Patient 10:22:32 CDT Yolande Lindsay MD [facility]-91233 Level 3 Est. Patient 17:12:58 CDT Yolande Lindsay MD [facility] CPT-52979 Level 4 Est. Patient 13:30:58 CDT Yolande Lindsay MD [facility] CPT-97159 Level 4 New Patient 09:02:42 CDT Jared Og MD [facility]-52164 Level 3 Est. Patient 08:19:07 CDT Yolande Lindsay MD [facility]-29921 Level 3 Est. Patient 12:00:13 NUT ROASTER Gab Padron MD [facility]-80895 Level 3 Est. Patient 16:15:23 NUT ROASTER Yolande Lindsay MD [facility]-74627 Level 2 Est. Patient 19:47:15 CDT Yolande Lindsay MD [facility]-59251 Level 3 Est. Patient 21:38:31 CDT Yolande Lindsay MD [facility]-94575 Level 3 Est. Patient 10:25:12 CDT Adiel PERAZA [facility] CPT-48905 Level 4 Est. Patient 10:51:58 CDT Yolande Lindsay MD [facility]-54540 Level 3 Est. Patient 14:04:55 NUT ROASTER Rodrigo Sarah [facility]-30700 Level 3 Est. Patient 10:46:35 NUT ROASTER Rodrigo Sarah [facility] CPT-86622 Level 3 Est. Patient 14:24:37 NUT ROASTER Yolande Lindsay MD [facility]-45437 Level 3 Est. Patient 17:41:58 NUT ROASTER Yolande Lindsay MD [facility]-65634 Level 2 Est. Patient 22:01:41 NUT ROASTER Rodrigo Sarah [facility] CPT-88464 Level 2 Est. Patient 22:01:11 NUT ROASTER Rodrigo Sarah [facility] CPT-40484 Level 3 Est. Patient 10:12:29 NUT ROASTER Rodrigo Sarah [facility]-24200 Level 3 Est. Patient 11:05:44 CDT Alexis Ordaz MD [facility]-17493 Level 3 Est. Patient 14:57:20 CDT Yolande Lindsay MD [facility] CPT-37791 Level 3 Est. Patient 14:40:57 CDT Yolande Lindsay MD PhD [facility] CPT-64485 Level 3 Est. Patient 20:55:40 CDT Yolande Lindsay MD [facility] CPT-00528 Level 3 Est. Patient 12:42:38 NUT ROASTER Yolande Lindsay MD [facility] CPT-62272 Level 3 Est. Patient 11:54:49 NUT ROASTER Des Hines MD [facility] CPT-75567 Level 3 Est. Patient 17:06:38 CDT Dewayne PERAZA [facility] Procedures Code Procedure Name Date Entry Date Standard Description CPT-22124 Hip, complete, 2-3 views - XRAY USE ONLY 17:19:04 NUT ROASTER CPT-51382 Venipuncture Draw Fee 08:37:59 NUT ROASTER CPT-17632 Liver Profile - LAB USE ONLY 08:37:59 NUT ROASTER CPT-91789 Lipid - LAB USE ONLY 08:37:58 NUT ROASTER CPT-73668 First Vx - Ix admin via ID IM or jet injects without counseling by physician 11:52:31 CDT CPT-34314 Fluzone Preservative Free Intramuscular Suspension 11:52 :31 CDT CPT-70350 Foot, left, comp min 3V - XRAY USE ONLY 09:24:54 CDT CPT-42126 Abd single AP View - XRAY USE ONLY 11:16:17 CDT CPT-74646 T spine AP/ Lat - XRAY USE ONLY 09:34:21 CDT CPT-96504 Chest 2V Frontal and Lat - XRAY USE ONLY 10:48:51 CDT CPT-90315 LS spine comp w obliq 13:28:00 NUT ROASTER CPT-J1040 Depo Medrol 80 mg (Methyl Prednisolone Acetate) 10:51: 28 NUT ROASTER CPT-J1100 Decadron 8mg (Dexamethasone) 10:51:28 NUT ROASTER CPT-25098 Abx/Therapy Injection 10:51:28 NUT ROASTER CPT-J1100 Decadron 8mg (Dexamethasone) 21:02:30 NUT ROASTER CPT-J1040 Depo Medrol 80 mg (Methyl Prednisolone Acetate) 21:02: 30 NUT ROASTER [id number] Event Monitor - MC Transmission 09:12:32 CDT 08/06 [id number] Event Monitor - MC review and interp 09:12:32 CDT [id number] Event Monitor - MC recording 09:12:32 CDT CPT-86693 EKG Trac and Interp 16:50:22 CDT CPT-J1030 Depo Medrol 40 mg (Methyl Prednisolone Acetate) 17:05: 54 CDT CPT-J1100 Decadron 4mg (Dexamethasone) 17:05:54 CDT CPT-80262 Abx/Therapy Injection 17:05:54 CDT CPT-J1100 Decadron 4mg (Dexamethasone) 16:55:28 CDT CPT-J1030 Depo Medrol 40 mg (Methyl Prednisolone Acetate) 16:55: 28 CDT CPT-01488 Ankle Complete - Min 3V 15:58:50 CDT CPT-06171 Knee 3V 15:58:50 CDT CPT-90954 Hip comp min 2V 15:58:50 CDT CPT-J2270 Morphine Sulfate 10 mg 14:25:44 NUT ROASTER CPT-J2550 Phenergan 12.5 mg (Promethazine) 14:25:44 NUT ROASTER CPT-07040 Abx/Therapy Injection 14:25:44 NUT ROASTER CPT-J2550 Phenergan 12.5 mg (Promethazine) 14:08:03 NUT ROASTER CPT-J2270 Morphine Sulfate 10 mg 14:08:03 NUT ROASTER CPT-33586 Bladder Scan 15:00:38 CDT CPT-TCMM Transitional Care Mgmt-Moderate 09:52:22 CDT CPT-J1030 Depo Medrol 40 mg (Methyl Prednisolone Acetate) 10:55: 18 CDT CPT-J1100 Decadron 4mg (Dexamethasone) 10:55:18 CDT CPT-57851 Abx/Therapy Injection 10:55:18 CDT CPT-J1030 Depo Medrol 40 mg (Methyl Prednisolone Acetate) 10:22: 32 CDT CPT-J1100 Decadron 4mg (Dexamethasone) 10:22:32 CDT CPT-85576 Postop F/U Visit 14:37:13 CDT CPT-66785 Ankle Complete - Min 3V 17:11:58 CDT CPT-69904 Foot comp min 3V 17:11:58 CDT CPT-55578 Bladder Scan 09:56:58 CDT CPT-67782 Postop F/U Visit 09:56:58 CDT CPT-33922 Cystoscopy 09:02:42 CDT CPT-51804 Bladder Scan 09:02:42 CDT CPT-69175 Abd single AP View 16:00:35 CDT CPT-01387 Administration single or combination vaccine inc oral 10 :15:43 CDT CPT-67519 Influenza split virus > age 3 10:15:43 CDT CPT-21691 Nail Avulsion 09:24:57 CDT CPT-OV Office Visit 11:15:41 CDT CPT-57952 Abx/Therapy Injection 10:51:30 CDT CPT-J3301 Kenalog 40 mg (Triamcinolone Acetonide) 10:25:12 CDT CPT-J1100 Decadron 4mg (Dexamethasone) 10:25:12 CDT CPT-32120 Anoscopy diagnostic 10:36:12 CDT CPT-OV Office Visit 15:34:31 CDT CPT-29793 Abx/Therapy Injection 08:21:15 NUT ROASTER CPT-J1885 Toradol 60 mg (Ketorolac) 10:46:35 NUT ROASTER CPT-OV Office Visit 19:51:16 NUT ROASTER CPT-41124 Spec Collection and Handling Fee 14:34:18 NUT ROASTER CPT-PV Prev. Care Visit 14:19:18 NUT ROASTER CPT-56443 Postop F/U Visit 14:47:51 NUT ROASTER CPT-57051 Postop F/U Visit 15:15:14 NUT ROASTER CPT-34399 Postop F/U Visit 14:41:43 CDT CPT-34241 Postop F/U Visit 15:47:46 CDT CPT-OV Office Visit 15:27:23 CDT CPT-OV Office Visit 17:20:34 CDT CPT-56882 Abx/Therapy Injection 15:05:57 CDT CPT-J1100 Decadron 8mg (Dexamethasone) 14:44:57 CDT CPT-J1040 Depo Medrol 80 mg (Methyl Prednisolone Acetate) 14:44: 57 CDT CPT-JTINJ Joint Injection 10:17:37 CDT CPT-08057 Administration 2+ single or combination vaccines inc oral 13:01:46 NUT ROASTER CPT-91172 Administration single or combination vaccine inc oral 13 :01:46 NUT ROASTER CPT-73665 Pneumovax 13:01:46 NUT ROASTER CPT-27750 Influenza split virus > age 3 13:01:46 NUT ROASTER CPT-02616 Administration single or combination vaccine inc oral 08 :56:49 CDT CPT-30138 Tdap 08:56:49 CDT
--- OUTSIDE RECORDS SUMMARY | 2017-03-21 23:11 | XMS REPORT | Clinical Summary ---
Author Author Admin, MARGRET Organization [employer] Address Unknown Phone Unavailable Allergies, Adverse Reactions, Alerts Allergy Name Reaction Description Start Date Severity Status Provider VALENTIN Critical Active Rodrigo Montemayorl MULTIPLE NEEDLE STITCHER CHLORHEXIDINE GLUCONATE tongue and gums swollen Critical Active Hoa Kabaford RMA NORFLEX Rash Critical Active Silvestrellina Frazell MULTIPLE NEEDLE STITCHER TRAZODONE HCL sees things Critical Active Dewayne [...] of 412 Active Hoa Otto [facility] Old myocardial infarction Pelvic pain 789.09 Active Yolande Lindsay MD PhD Abdominal pain, other specified site; multiple sites Edema 782.3 Active Yolande Lindsay MD PhD Edema Rash 782.1 Active Yolande Lindsay MD PhD Rash and other nonspecific skin eruption Back pain, lumbar 724.2 Active Gab Padron MD Lumbago Cough 786.2 Active Jillina Tyrel MULTIPLE NEEDLE STITCHER Cough 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 Jillina Frazellilian MULTIPLE NEEDLE STITCHER 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 Anemia 285.9 Active Gab Padron MD Anemia, unspecified Conjunctivitis 372.30 Active Jillina Tyrel MULTIPLE NEEDLE STITCHER Conjunctivitis, unspecified Sinusitis 473.9 Active Jillina Frazell MULTIPLE NEEDLE STITCHER Unspecified sinusitis (chronic) Nonspecific syndrome suggestive of [...] MCG/DOSE AEPB 1 puff BID FLUTICASONE- SALMETEROL 46076370008 Active Rodrigo Sarah MULTIPLE NEEDLE STITCHER Active LEVOTHYROXINE SODIUM 75 MCG TABS Take 1 tab daily LEVOTHYROXINE SODIUM 81176785728 No Longer Active Mariana Cuadra RMA Active SYNTHROID 88 MCG ORAL TABS Take one by mouth daily LEVOTHYROXINE SODIUM 64233694755 Active Mariana Cuadra RMA Active CHERATUSSIN AC 100-10 MG/5ML SYRP 1 tsp by mouth every 4 hours as needed for cough GUAIFENESIN-CODEINE 43390922434 No Longer Active Gab Padron MD Active POLYTRIM 05481-6.1 UNIT/ML-% SOLN 1 gtt to affected eye q3h x 7 days POLYMYXIN B-TRIMETHOPRIM 70422466462 No Longer Active Gab Padron MD Active FLUTICASONE PROPIONATE 50 MCG/ACT SUSP 1 to 2 sprays each nostril daily 04/21 FLUTICASONE PROPIONATE 11808059887 No Longer Active Gab Padron MD Active TRILEPTAL 600 MG TABS Take one 1 tablet in Am and 1 tablet at night OXCARBAZEPINE 89887340334 Active Gab Padron MD Active CEFDINIR 300 MG CAPS 1 po BID x 10 days CEFDINIR 22039706998 No Longer Active Rodrigo Sarah APRN Active CEFTIN 500 MG TAB 1 twice a day CEFUROXIME AXETIL 91885093323 No Longer Active Gab Padron MD Active AZITHROMYCIN 250 MG TABS 2 po qd x 1 day, then 1 po qd x 4 days AZITHROMYCIN 35754146470 No Longer Active Rodrigo Sarah APRN Active CLARITIN 10 MG TAB 1 tablet by mouth daily as needed for allergies LORATADINE 09279754958 Active Silvestrellnacho Sarah APRN Active OXYCODONE HCL 5 MG ORAL CAPS 1 TAB PO Q HS OXYCODONE HCL 33483673880 No Longer Active Rodrigo Sarah APRN Active NIASPAN 500 MG ORAL CR-TABS 1 pill nightly x 1 week, then 2 pills nightly x 1 week, then 3 pills nightly x 1 week, then 4 pills nightly NIACIN (ANTIHYPERLIPIDEMIC) 12932795136 No Longer Active Rodrigo Sarah APRN Active NIACIN 500 MG TABS 1 pill by mouth nightly x 1 week, then 2 pills x 1 week, then 3 pills x 1 week, then 4 pills nightly - take after evening meal, with applesauce or an apple NIACIN 59453038907 No Longer Active Yolande Lindsay MD PhD Active FISH OIL 1000 MG CAPS 3 pills daily OMEGA-3 FATTY ACIDS 84239363350 Active Yolande Lindsay MD PhD Active TRIAMCINOLONE ACETONIDE 0.1 % CREA apply bid sparingly to rash TRIAMCINOLONE ACETONIDE 05623744875 Active Yolande Lindsay MD PhD Active FUROSEMIDE 20 MG TAB 1 tablet by mouth daily FUROSEMIDE 99979921031 Active Yolande Lindsay MD PhD Active LISINOPRIL 20 MG ORAL TABS 1 tab by mouth daily LISINOPRIL 21672374416 Active Gab Padron MD Active FUROSEMIDE 20 MG TABS 1 pill by mouth daily, for edema FUROSEMIDE 66260572630 No Longer Active Yolande Lindsay MD PhD Active ATORVASTATIN CALCIUM 10 MG TABS 1 pill by mouth daily, for cholesterol 09/06 ATORVASTATIN CALCIUM 43351272239 Active Yolande Lindsay MD PhD Active CALCIUM 600+D PLUS MINERALS 600-400 MG-UNIT ORAL CHEW 1 tab by mouth daily CALCIUM CARBONATE-VIT D-MIN 26474090400 No Longer Active Yolande Lindsay MD PhD Active CYCLOBENZAPRINE HCL 10 MG TABS 1 tablet by mouth three times daily as needed for muscle spasm/pain CYCLOBENZAPRINE HCL 75958161805 Active Yolande Lindsay MD PhD Active ONDANSETRON 4 MG TBDP 1 q4h PRN nausea ONDANSETRON 43245112219 Active Yolande Lindsay MD PhD Active ADULT ASPIRIN EC LOW STRENGTH 81 MG TBEC Take 1 tablet by mouth daily 2014 ASPIRIN 95163655446 No Longer Active Yolande Lindsay MD PhD Active ZOFRAN ODT 4 MG TBDP 1 pill dissolved by mouth every 4 hours if needed for nausea ONDANSETRON 30189033519 No Longer Active Yolande Lindsay MD PhD Active CEFTIN 500 MG TAB 1 twice a day CEFUROXIME AXETIL 12669677137 No Longer Active Yolande Lindsay MD PhD Active ALBUTEROL SULFATE 0.083 % NEBU SOLN one vial per nebulizer every 4-6 hours as needed ALBUTEROL SULFATE 45456437369 No Longer Active Alexis Ordaz MD Active DOXYCYCLINE HYCLATE 100 MG CAP 1 cap by mouth twice daily DOXYCYCLINE HYCLATE 45902854560 No Longer Active Yolande Lindsay MD PhD Active CYCLOBENZAPRINE HCL 10 MG TABS 1/2 - 1 tab by mouth three times daily if needed for spasms/pain CYCLOBENZAPRINE HCL 85379989519 No Longer Active Yolande Lindsay MD PhD Active AZITHROMYCIN 250 MG TABS 2 pills on day 1, then 1 pill daily x 4 days AZITHROMYCIN 85846067723 No Longer Active Yolande Lindsay MD PhD Active XOPENEX 1.25 MG/3ML NEBU 1 neb every 4 hours if needed for cough/congestion LEVALBUTEROL HCL 46104201366 No Longer Active Yolande Lindsay MD PhD Active DOXYCYCLINE HYCLATE 100 MG TAB 1 tab twice a day for 14 days 2013 DOXYCYCLINE HYCLATE 48499851461 No Longer Active Yolande Lindsay MD PhD Active PREVACID 30 MG CPDR Take 1 tablet by mouth daily-PRN LANSOPRAZOLE 68777373320 No Longer Active Yolande Lindsay MD PhD Active PA VITAMIN D-3 2000 UNIT CAPS 1 CAP PO DAILY CHOLECALCIFEROL 99119935289 No Longer Active Yolande Lindsay MD PhD Active CEFDINIR 300 MG CAPS by mouth twice a day CEFDINIR 74157961383 No Longer Active Gab Padron MD Active TOPAMAX 50 MG TABS 1 PO twice daily TOPIRAMATE 74929211931 Active Yolande Lindsay MD PhD Active AZITHROMYCIN 250 MG TABS 2 po qd x 1 day, then 1 po qd x 4 days AZITHROMYCIN 34815278056 No Longer Active Yolande Lindsay MD PhD Active DICLOFENAC SODIUM 75 MG TBEC 1 tablet by q 12 hours PRN headaches DICLOFENAC SODIUM 28582585376 No Longer Active Yolande Lindsay MD PhD Active FLONASE 50 MCG/ACT SUSP 1 spray each nostril am and hs FLUTICASONE PROPIONATE 38148688405 No Longer Active Todd Callaway MD Active ANUSOL-HC 25 MG SUPPOSITORY 1 rectally twice a day as needed for hemorrhoids HYDROCORTISONE JAYDEN (RECTAL) 94875849129 No Longer Active Yolande Lindsay MD PhD Active ANUSOL-HC 25 MG SUPPOSITORY 1 suppository rectally each evening as needed for anal fissure HYDROCORTISONE JAYDEN (RECTAL) 69496078178 No Longer Active LONNIE Iglesias Active VALIUM 5 MG TAB 1 po 30 minutes prior to your MRI DIAZEPAM 05609997061 No Longer Active LONNIE Iglesias Active METHOCARBAMOL 750 MG TABS 1 PO QID PRN METHOCARBAMOL 29378440278 No Longer Active Daphne Wetzel APRN Active NITROSTAT 0.4 MG SUBL as directed NITROGLYCERIN 42116938034 No Longer Active Rodrigo Sarah APRN Active ROBAXIN-750 750 MG TABS 2 four times a day for 3 days as needed for muscle spasm, then 1 four times a day as needed METHOCARBAMOL 43048717310 No Longer Active Rodrigo Sarah APRN Active HYDROCODONE-ACETAMINOPHEN 5-325 MG TABS 1 q 4-6 hrs prn HYDROCODONE-ACETAMINOPHEN 66140109570 No Longer Active Rodrigo Sarah APRN Active VERAPAMIL HCL CR 180 MG CR-TABS TAKE 1 TAB DAILY VERAPAMIL HCL 32953549995 No Longer Active Yolande Lindsay MD PhD Active BACTRIM DS 800-160 MG TAB 1 tab by mouth twice daily TRIMETHOPRIM-SULFAMETHOXAZOLE 75520288660 No Longer Active Yolande Lindsay MD PhD Active NEXIUM 40 MG PACK 1 by mouth daily ESOMEPRAZOLE MAGNESIUM 41792387735 No Longer Active Des Hines MD Active EPIPEN 2-CHARLETTE 0.3 MG/0.3ML OMARI as need for allergic reaction EPINEPHRINE 60831324964 Active Yolande Lindsay MD PhD Active NEXIUM 40 MG CPDR 1 PO Q D DAY ESOMEPRAZOLE MAGNESIUM 06218244118 No Longer Active Sadia Perry RN Active NEXIUM 40 MG PACK 1 by mouth daily NEXIUM 40 MG PACK ESOMEPRAZOLE MAGNESIUM Inactive VERAPAMIL HCL CR 180 MG CR-TABS TAKE 1 TAB DAILY VERAPAMIL HCL CR 180 MG CR-TABS VERAPAMIL HCL Inactive HYDROCODONE-ACETAMINOPHEN 5-325 MG TABS 1 q 4-6 hrs prn HYDROCODONE-ACETAMINOPHEN 5-325 MG TABS 479330 HYDROCODONE-ACETAMINOPHEN Inactive ROBAXIN-750 750 MG TABS 2 four times a day for 3 days as needed for muscle spasm, then 1 four times a day as needed ROBAXIN-750 750 MG TABS 589355 METHOCARBAMOL Inactive NITROSTAT 0.4 MG SUBL as directed NITROSTAT 0.4 MG SUBL NITROGLYCERIN Inactive METHOCARBAMOL 750 MG TABS 1 PO QID PRN METHOCARBAMOL 750 MG TABS 662998 METHOCARBAMOL Inactive VALIUM 5 MG TAB 1 po 30 minutes prior to your MRI VALIUM 5 MG TAB 513179 DIAZEPAM Inactive ANUSOL-HC 25 MG SUPPOSITORY 1 suppository rectally each evening as needed for anal fissure ANUSOL-HC 25 MG SUPPOSITORY 4594053 HYDROCORTISONE JAYDEN (RECTAL) Inactive ANUSOL-HC 25 MG SUPPOSITORY 1 rectally twice a day as needed for hemorrhoids ANUSOL-HC 25 MG SUPPOSITORY 0405200 HYDROCORTISONE JAYDEN (RECTAL) Inactive FLONASE 50 MCG/ACT SUSP 1 spray each nostril am and hs FLONASE 50 MCG/ACT SUSP FLUTICASONE PROPIONATE Inactive DICLOFENAC SODIUM 75 MG TBEC 1 tablet by q 12 hours PRN headaches DICLOFENAC SODIUM 75 MG TBEC 350749 DICLOFENAC SODIUM Inactive PA VITAMIN D-3 2000 UNIT CAPS 1 CAP PO DAILY PA VITAMIN D-3 2000 UNIT CAPS CHOLECALCIFEROL Inactive PREVACID 30 MG CPDR Take 1 tablet by mouth daily-PRN PREVACID 30 MG CPDR 313342 LANSOPRAZOLE Inactive DOXYCYCLINE HYCLATE 100 MG TAB 1 tab twice a day for 14 days 2013 DOXYCYCLINE HYCLATE 100 MG TAB 9677010 DOXYCYCLINE HYCLATE Inactive XOPENEX 1.25 MG/3ML NEBU 1 neb every 4 hours if needed for cough/congestion XOPENEX 1.25 MG/3ML NEBU 393036 LEVALBUTEROL HCL Inactive CYCLOBENZAPRINE HCL 10 MG TABS 1/2 - 1 tab by mouth three times daily if needed for spasms/pain CYCLOBENZAPRINE HCL 10 MG TABS 577507 CYCLOBENZAPRINE HCL Inactive ALBUTEROL SULFATE 0.083 % NEBU SOLN one vial per nebulizer every 4-6 hours as needed ALBUTEROL SULFATE 0.083 % NEBU SOLN 290166 ALBUTEROL SULFATE Inactive CEFTIN 500 MG TAB 1 twice a day CEFTIN 500 MG TAB 474734 CEFUROXIME AXETIL Inactive ZOFRAN ODT 4 MG TBDP 1 pill dissolved by mouth every 4 hours if needed for nausea ZOFRAN ODT 4 MG TBDP 100788 ONDANSETRON Inactive ADULT ASPIRIN EC LOW STRENGTH 81 MG TBEC Take 1 tablet by mouth daily 2014 ADULT ASPIRIN EC LOW STRENGTH 81 MG TBEC 117553 ASPIRIN Inactive CALCIUM 600+D PLUS MINERALS 600-400 [...] or an apple NIACIN 500 MG TABS 686944 NIACIN Inactive NIASPAN 500 MG ORAL CR-TABS 1 pill nightly x 1 week, then 2 pills nightly x 1 week, then 3 pills nightly x 1 week, then 4 pills nightly NIASPAN 500 MG ORAL CR-TABS NIACIN (ANTIHYPERLIPIDEMIC) Inactive OXYCODONE HCL 5 MG ORAL CAPS 1 TAB PO Q HS OXYCODONE HCL 5 MG ORAL CAPS 7806358 OXYCODONE HCL Inactive FLUTICASONE PROPIONATE 50 MCG/ACT SUSP 1 to 2 sprays each nostril daily 04/21 FLUTICASONE PROPIONATE 50 MCG/ACT SUSP 311618 FLUTICASONE PROPIONATE Inactive POLYTRIM 34994-8.1 UNIT/ML-% SOLN 1 gtt to affected eye q3h x 7 days POLYTRIM 42516-4.1 UNIT/ML-% SOLN 571410 POLYMYXIN B- TRIMETHOPRIM Inactive CHERATUSSIN AC 100-10 MG/5ML SYRP 1 tsp by mouth every 4 hours as needed for cough CHERATUSSIN AC 100-10 MG/5ML SYRP 311571 GUAIFENESIN-CODEINE Inactive LEVOTHYROXINE SODIUM 75 MCG TABS Take 1 tab daily LEVOTHYROXINE SODIUM 75 MCG TABS 700679 LEVOTHYROXINE SODIUM Inactive BACTRIM DS 800-160 MG TAB 1 tab by mouth twice daily BACTRIM DS 800-160 MG TAB 973278 TRIMETHOPRIM-SULFAMETHOXAZOLE Inactive AZITHROMYCIN 250 MG TABS 2 po qd x 1 day, then 1 po qd x 4 days AZITHROMYCIN 250 MG TABS 4679200 AZITHROMYCIN Inactive CEFDINIR 300 MG CAPS by mouth twice a day CEFDINIR 300 MG CAPS 103305 CEFDINIR Inactive AZITHROMYCIN 250 MG TABS 2 pills on day 1, then 1 pill daily x 4 days AZITHROMYCIN 250 MG TABS 4411749 AZITHROMYCIN Inactive DOXYCYCLINE HYCLATE 100 MG CAP 1 cap by mouth twice daily DOXYCYCLINE HYCLATE 100 MG CAP 2461349 DOXYCYCLINE HYCLATE Inactive FUROSEMIDE 20 MG TABS 1 pill by mouth daily, for edema FUROSEMIDE 20 MG TABS 908388 FUROSEMIDE Inactive AZITHROMYCIN 250 MG TABS 2 po qd x 1 day, then 1 po qd x 4 days AZITHROMYCIN 250 MG TABS 9941605 AZITHROMYCIN Inactive CEFTIN 500 MG TAB 1 twice a day CEFTIN 500 MG TAB 688439 CEFUROXIME AXETIL Inactive CEFDINIR 300 MG CAPS 1 po BID x 10 days CEFDINIR 300 MG CAPS 288991 CEFDINIR Inactive Immunizations Vaccine Administration Date Value Standard Description Seasonal influenza vaccine, injectable, containing preservative, for > 3 years old (Afluria, FluLaval, Fluzone, Fluvirin, Fluarix, Agriflu(>=18 yo)) Fluzone (>3 yrs.) [FWU392] Influenza, seasonal, injectable influenza immunization (Flu Vax) has been administered Influenza - Unspecified Formulation [CVX88] influenza virus vaccine, unspecified formulation Seasonal influenza vaccine, injectable, containing preservative, for > 3 years old (Afluria, FluLaval, Fluzone, Fluvirin, Fluarix, Agriflu(>=18 yo)) Fluzone (>3 yrs.) [RUB841] Influenza, seasonal, injectable pneumococcal immunization administered Pneumovax 23 [CVX33] pneumococcal polysaccharide vaccine, 23 valent dT (Diphtheria and Tetanus) booster given given Td(adult) unspecified formulation Boostrix (Tetanus toxoid, reduced diphtheria toxoid and acellular pertussis vaccine, adsorbed), booster Boostrix [EEI871] tetanus toxoid, reduced diphtheria toxoid, and acellular [...] Panel - Chemistry sodium, serum 145 mmol/L 412-037 1048/06/22 potassium, serum 3.9 mmol/L 3.5-5.2 chloride, serum 109 mmol/L 98-107 carbon dioxide, venous blood 23.4 mmol/L 21.0-32.0 blood glucose 92 mg/dL 65-110 calcium, serum 8.2 mg/dL 8.5-10.1 urea nitrogen, blood 24 mg/dL 7-18 creatinine, serum 1.30 mg/dL 0.60-1.30 Lab Report: [facility] Advanced Lipid and Inlammation Panel /17942 - Chemistry cholesterol, serum 198 mg/dL [phone]/04/30 HDL cholesterol, serum 65 mg/dL > OR=46 triglyceride, serum, fasting 82 mg/dL LDL cholesterol, serum 117 mg/dL cholesterol/HDL ratio, serum 3.0 calc < OR=5.0 cholesterol, serum 148 mg/dL 493-386 2958/09/02 HDL cholesterol, serum 55 mg/dL > OR=46 [...] (L) - Chemistry sodium, serum 145 mmol/L 591-032 1134/09/02 potassium, serum 4.6 mmol/L 3.5-5.2 chloride, serum [...] 51 mg/dL 30-200 cholesterol, serum 173 mg/dL 519-763 2986/04/28 HDL cholesterol, serum 63 mg/dL 32-96 LDL [...] mg/dL Encounters Code Encounter Date Provider Facility CPT-23279 Level 3 Est. Patient 11:30:07 CDT Rodrigo Sarah APRN [facility]-94801 Level 4 Est. Patient 21:02:30 LINING MAKER HAND Gab Padron MD [facility]-28047 Level 3 Est. Patient 11:02:19 LINING MAKER HAND Gab Padron MD [facility]-90222 Level 4 Est. Patient 22:24:31 LINING MAKER HAND Gab Padron MD [facility]-12056 Level 3 Est. Patient 18:33:46 LINING MAKER HAND Gab Padron MD [facility]-40996 Level 3 Est. Patient 16:19:11 CDT Yolande Lindsay MD [facility]-06190 Level 3 Est. Patient 18:59:14 CDT Yolande Lindsay MD [facility]-78686 Level 4 Est. Patient 21:29:26 CDT Yolande Lindsay MD [facility]-30868 Level 3 Est. Patient 07:37:45 CDT Yolande Lindsay MD [facility]-39511 Level 3 Est. Patient 17:03:46 CDT Yolande Lindsay MD [facility]-83708 Level 4 Est. Patient 20:02:13 LINING MAKER HAND Yolande Lindsay MD [facility]-47590 Level 3 Est. Patient 16:02:07 LINING MAKER HAND Alexis Ordaz MD [facility]-21695 Level 3 Est. Patient 12:41:24 LINING MAKER HAND Yolande Lindsay MD PhD [facility]-83330 Level 3 Est. Patient 15:41:20 LINING MAKER HAND Yolande Lindsay MD [facility]-05374 Level 3 Est. Patient 13:20:02 LINING MAKER HAND Yolande Lindsay MD [facility]-10397 Level 3 Est. Patient 15:00:38 CDT Jared Og MD [facility] CPT-89967 Level 3 Est. Patient 10:22:32 CDT Yolande Lindsay MD [facility] CPT-56423 Level 3 Est. Patient 17:12:58 CDT Yolande Lindsay MD [facility] CPT-29376 Level 4 Est. Patient 13:30:58 CDT Yolande Lindsay MD [facility] CPT-82762 Level 4 New Patient 09:02:42 CDT Jared Og MD [facility]-63881 Level 3 Est. Patient 08:19:07 CDT Yolande Lindsay MD [facility]-58646 Level 3 Est. Patient 12:00:13 LINING MAKER HAND Gab Padron MD [facility] CPT-97055 Level 3 Est. Patient 16:15:23 LINING MAKER HAND Yolande Lindsay MD [facility] CPT-96990 Level 2 Est. Patient 19:47:15 CDT Yolande Lindsay MD [facility] CPT-98110 Level 3 Est. Patient 21:38:31 CDT Yolande Lindsay MD [facility] CPT-61394 Level 3 Est. Patient 10:25:12 CDT Adiel PERAZA [facility] CPT-40209 Level 4 Est. Patient 10:51:58 CDT Yolande Lindsay MD [facility] CPT-81682 Level 3 Est. Patient 14:04:55 LINING MAKER HAND Rodrigo Sarah [facility] [place] 2] CPT-12352 Level 3 Est. Patient 10:46:35 LINING MAKER HAND Rodrigo Sarah [facility] [place][note 2] CPT-60130 Level 3 Est. Patient 14:24:37 LINING MAKER HAND Yolande Lindsay MD [facility] CPT-35774 Level 3 Est. Patient 17:41:58 LINING MAKER HAND Yolande Lindsay MD [facility] CPT-80739 Level 2 Est. Patient 22:01:41 LINING MAKER HAND Rodrigo Sarah [facility] [place][note 2] CPT-00844 Level 2 Est. Patient 22:01:11 LINING MAKER HAND Rodrigo Sarah [facility] [place][note 2] CPT-47102 Level 3 Est. Patient 10:12:29 LINING MAKER HAND Rodrigo Sarah [facility] [place][note 2] CPT-58129 Level 3 Est. Patient 11:05:44 CDT Alexis Ordaz MD [facility] CPT-14031 Level 3 Est. Patient 14:57:20 CDT Yolande Lindsay MD [facility] CPT-63048 Level 3 Est. Patient 14:40:57 CDT Yolande Lindsay MD [facility] CPT-90630 Level 3 Est. Patient 20:55:40 CDT Yolande Lindsay MD [facility] CPT-13250 Level 3 Est. Patient 12:42:38 LINING MAKER HAND Yolande Lindsay MD [facility]-87166 Level 3 Est. Patient 11:54:49 LINING MAKER HAND Des Hines MD [facility] CPT-81823 Level 3 Est. Patient 17:06:38 CDT Dewayne PERAZA [facility] Procedures Code Procedure Name Date Entry Date Standard Description CPT-29928 LS spine comp w obliq 13:28:00 LINING MAKER HAND CPT-J1040 Depo Medrol 80 mg (Methyl Prednisolone Acetate) 10:51: 28 LINING MAKER HAND CPT-J1100 Decadron 8mg (Dexamethasone) 10:51:28 LINING MAKER HAND CPT-56371 Abx/Therapy Injection 10:51:28 LINING MAKER HAND CPT-J1100 Decadron 8mg (Dexamethasone) 21:02:30 LINING MAKER HAND CPT-J1040 Depo Medrol 80 mg (Methyl Prednisolone Acetate) 21:02: 30 LINING MAKER HAND [id number] Event Monitor - MC Transmission 09:12:32 CDT 08/06 [id number] Event Monitor - MC review and interp 09:12:32 CDT [id number] Event Monitor - MC recording 09:12:32 CDT CPT-25890 EKG Trac and Interp 16:50:22 CDT CPT-J1030 Depo Medrol 40 mg (Methyl Prednisolone Acetate) 17:05: 54 CDT CPT-J1100 Decadron 4mg (Dexamethasone) 17:05:54 CDT CPT-10849 Abx/Therapy Injection 17:05:54 CDT CPT-J1100 Decadron 4mg (Dexamethasone) 16:55:28 CDT CPT-J1030 Depo Medrol 40 mg (Methyl Prednisolone Acetate) 16:55: 28 CDT CPT-47814 Ankle Complete - Min 3V 15:58:50 CDT CPT-99051 Knee 3V 15:58:50 CDT CPT-24973 Hip comp min 2V 15:58:50 CDT CPT-J2270 Morphine Sulfate 10 mg 14:25:44 LINING MAKER HAND CPT-J2550 Phenergan 12.5 mg (Promethazine) 14:25:44 LINING MAKER HAND CPT-10522 Abx/Therapy Injection 14:25:44 LINING MAKER HAND CPT-J2550 Phenergan 12.5 mg (Promethazine) 14:08:03 LINING MAKER HAND CPT-J2270 Morphine Sulfate 10 mg 14:08:03 LINING MAKER HAND CPT-46465 Bladder Scan 15:00:38 CDT CPT-TCMM Transitional Care Mgmt-Moderate 09:52:22 CDT CPT-J1030 Depo Medrol 40 mg (Methyl Prednisolone Acetate) 10:55: 18 CDT CPT-J1100 Decadron 4mg (Dexamethasone) 10:55:18 CDT CPT-53268 Abx/Therapy Injection 10:55:18 CDT CPT-J1030 Depo Medrol 40 mg (Methyl Prednisolone Acetate) 10:22: 32 CDT CPT-J1100 Decadron 4mg (Dexamethasone) 10:22:32 CDT CPT-66417 Postop F/U Visit 14:37:13 CDT CPT-60898 Ankle Complete - Min 3V 17:11:58 CDT CPT-62886 Foot comp min 3V 17:11:58 CDT CPT-10760 Bladder Scan 09:56:58 CDT CPT-00888 Postop F/U Visit 09:56:58 CDT CPT-77201 Cystoscopy 09:02:42 CDT CPT-55144 Bladder Scan 09:02:42 CDT CPT-43419 Abd single AP View 16:00:35 CDT CPT-35747 Administration single or combination vaccine inc oral 10 :15:43 CDT CPT-10336 Influenza split virus > age 3 10:15:43 CDT CPT-43246 Nail Avulsion 09:24:57 CDT CPT-OV Office Visit 11:15:41 CDT CPT-62312 Abx/Therapy Injection 10:51:30 CDT CPT-J3301 Kenalog 40 mg (Triamcinolone Acetonide) 10:25:12 CDT CPT-J1100 Decadron 4mg (Dexamethasone) 10:25:12 CDT CPT-82849 Anoscopy diagnostic 10:36:12 CDT CPT-OV Office Visit 15:34:31 CDT CPT-38803 Abx/Therapy Injection 08:21:15 LINING MAKER HAND CPT-J1885 Toradol 60 mg (Ketorolac) 10:46:35 LINING MAKER HAND CPT-OV Office Visit 19:51:16 LINING MAKER HAND CPT-88776 Spec Collection and Handling Fee 14:34:18 LINING MAKER HAND CPT-PV Prev. Care Visit 14:19:18 LINING MAKER HAND CPT-49391 Postop F/U Visit 14:47:51 LINING MAKER HAND CPT-55499 Postop F/U Visit 15:15:14 LINING MAKER HAND CPT-36019 Postop F/U Visit 14:41:43 CDT CPT-85516 Postop F/U Visit 15:47:46 CDT CPT-OV Office Visit 15:27:23 CDT CPT-OV Office Visit 17:20:34 CDT CPT-69065 Abx/Therapy Injection 15:05:57 CDT CPT-J1100 Decadron 8mg (Dexamethasone) 14:44:57 CDT CPT-J1040 Depo Medrol 80 mg (Methyl Prednisolone Acetate) 14:44: 57 CDT CPT-JTINJ Joint Injection 10:17:37 CDT CPT-51978 Administration 2+ single or combination vaccines inc oral 13:01:46 LINING MAKER HAND CPT-92925 Administration single or combination vaccine inc oral 13 :01:46 LINING MAKER HAND CPT-52990 Pneumovax 13:01:46 LINING MAKER HAND CPT-34879 Influenza split virus > age 3 13:01:46 LINING MAKER HAND CPT-07535 Administration single or combination vaccine inc oral 08 :56:49 CDT CPT-54933 Tdap 08:56:49 CDT
--- OUTSIDE RECORDS SUMMARY | 2017-03-21 23:14 | XMS REPORT ---
Author Author [facility] Medical Staff Organization [facility] Address [address] [id number] Phone [phone] Care Team Providers Care Medical Records Analyst Name Role Phone LENKA HUTSON, ENUICE PP [phone] Summary purpose TRANSITION OF CARE AUTO GENERATION [...]
--- OUTSIDE RECORDS SUMMARY | 2017-03-21 23:14 | XMS REPORT | Clinical Summary ---
Author Author Admin, E Organization [facility] Address Unknown Phone Unavailable Allergies, Adverse Reactions, Alerts Allergy Name Reaction Description Start Date Severity Status Provider VALENTIN Critical Active Rodrigo Fracharlottel HAIRSPRING ADJUSTER CHLORHEXIDINE GLUCONATE tongue and gums swollen Critical Active Hoa Otto RMA NORFLEX Rash Critical Active Silvestrellina Frazell HAIRSPRING ADJUSTER TRAZODONE HCL sees things Critical Active Dewayne [...] suggestive of viral illness 079.99 Resolved Gab aPdron MD Unspecified viral infection Laryngitis 464.00 Resolved [...] Abdominal pain, left lower quadrant 789.04 Resolved Gba Padron MD Abdominal pain, left lower quadrant [...] then one daily for three days PREDNISONE 35578658397 Active Gab Padron MD Active TRIAMCINOLONE ACETONIDE 0.1 % CREA apply bid sparingly to rash TRIAMCINOLONE ACETONIDE 43185650338 No Longer Active Gab Padron MD Active TRAMADOL HCL 50 MG TABS 1 tab po every 6 hrs prn pain TRAMADOL HCL 50574752569 No Longer Active Gab Padron MD Active BACTRIM DS 800-160 MG TAB 1 tab by mouth twice daily TRIMETHOPRIM-SULFAMETHOXAZOLE 53840344543 No Longer Active Tisha Lambert HAIRSPRING ADJUSTER Active ADVAIR DISKUS 250-50 MCG/DOSE AEPB 1 puff BID FLUTICASONE-SALMETEROL 64913282353 No Longer Active Todd Callaway MD Active ONDANSETRON 4 MG TBDP 1 q4h PRN nausea ONDANSETRON 13962457414 No Longer Active LONNIE Iglesias Active FISH OIL 1000 MG CAPS 3 pills daily OMEGA-3 FATTY ACIDS 49295652212 No Longer Active LONNIE Iglesias Active CETIRIZINE HCL 10 MG ORAL TABS 1 po qd PRN Allergies CETIRIZINE HCL 15767643943 Active Gab Padron MD Active CLARITIN 10 MG TAB 1 tablet by mouth daily as needed for allergies LORATADINE 90110810849 No Longer Active Gab Padron MD Active PREDNISONE 20 MG TAB take 3 tabs daily for 3 days, 2 tabs daily for 3 days, 1 tab daily for 3 days, 1/2 tab daily for 3 days PREDNISONE 16403976363 No Longer Active Tisha Lambert APRN Active PREDNISONE 20 MG TAB 2 tabs daily for 3 days, 1 tab daily for 3 days, 1/2 tab daily for 2 days PREDNISONE 91252466723 No Longer Active Gab Padron MD Active ZOFRAN ODT 4 MG TBDP 1 po q6hr PRN Nausea ONDANSETRON 20898452222 Active Gab Padron MD Active IBUPROFEN 600 MG TAB 1 tablet by mouth every 6 hours for 7 days, then 1 tablet every 6 hours as needed. Take with food IBUPROFEN 76464283910 Active Rodrigo Sarah APRN Active BACTRIM DS 800-160 MG TAB 1 tab by mouth twice daily TRIMETHOPRIM-SULFAMETHOXAZOLE 68915259930 No Longer Active Gab Padron MD Active LEVOTHYROXINE SODIUM 75 MCG TABS Take 1 tab daily LEVOTHYROXINE SODIUM 08435759676 No Longer Active Mariana HICKEYA Active SYNTHROID 88 MCG ORAL TABS Take one by mouth daily LEVOTHYROXINE SODIUM 39205634573 Active Gab Padron MD Active CHERATUSSIN AC 100-10 MG/5ML SYRP 1 tsp by mouth every 4 hours as needed for cough GUAIFENESIN-CODEINE 04910110862 No Longer Active Gab Padron MD Active POLYTRIM 90273-1.1 UNIT/ML-% SOLN 1 gtt to affected eye q3h x 7 days POLYMYXIN B-TRIMETHOPRIM 61216367856 No Longer Active Gab Padron MD Active FLUTICASONE PROPIONATE 50 MCG/ACT SUSP 1 to 2 sprays each nostril daily 04/21 FLUTICASONE PROPIONATE 92065324286 No Longer Active Gab Padron MD Active TRILEPTAL 600 MG TABS Take one 1 tablet in Am and 1 tablet at night OXCARBAZEPINE 11914382723 Active Gab Padron MD Active CEFDINIR 300 MG CAPS 1 po BID x 10 days CEFDINIR 75286219791 No Longer Active Rodrigo Sarah APRN Active CEFTIN 500 MG TAB 1 twice a day CEFUROXIME AXETIL 83755568767 No Longer Active Gab Padron MD Active AZITHROMYCIN 250 MG TABS 2 po qd x 1 day, then 1 po qd x 4 days AZITHROMYCIN 91085597069 No Longer Active Rodrigo Sarah APRN Active OXYCODONE HCL 5 MG ORAL CAPS 1 TAB PO Q HS OXYCODONE HCL 43323791073 No Longer Active Rodrigo Sarah APRN Active NIASPAN 500 MG ORAL CR-TABS 1 pill nightly x 1 week, then 2 pills nightly x 1 week, then 3 pills nightly x 1 week, then 4 pills nightly NIACIN (ANTIHYPERLIPIDEMIC) 84579452858 No Longer Active Rodrigo Sarah APRN Active NIACIN 500 MG TABS 1 pill by mouth nightly x 1 week, then 2 pills x 1 week, then 3 pills x 1 week, then 4 pills nightly - take after evening meal, with applesauce or an apple NIACIN 93216650767 No Longer Active Yolande Lindsay MD PhD Active FUROSEMIDE 20 MG TAB 1 tablet by mouth daily FUROSEMIDE 33353528366 Active Gab Padron MD Active LISINOPRIL 20 MG ORAL TABS 1 tab by mouth daily LISINOPRIL 46183545447 Active Gab Padron MD Active FUROSEMIDE 20 MG TABS 1 pill by mouth daily, for edema FUROSEMIDE 66117110469 No Longer Active Yolande Lindsay MD PhD Active ATORVASTATIN CALCIUM 10 MG TABS 1 pill by mouth daily, for cholesterol 09/06 ATORVASTATIN CALCIUM 57350740698 Active Gab Padron MD Active CALCIUM 600+D PLUS MINERALS 600-400 MG-UNIT ORAL CHEW 1 tab by mouth daily CALCIUM CARBONATE-VIT D-MIN 37735090777 No Longer Active Yolande Lindsay MD PhD Active CYCLOBENZAPRINE HCL 10 MG TABS 1 tablet by mouth three times daily as needed for muscle spasm/pain CYCLOBENZAPRINE HCL 53983940457 Active Yolande Lindsay MD PhD Active ADULT ASPIRIN EC LOW STRENGTH 81 MG TBEC Take 1 tablet by mouth daily 2014 ASPIRIN 26863370606 No Longer Active Yolande Lindsay MD PhD Active ZOFRAN ODT 4 MG TBDP 1 pill dissolved by mouth every 4 hours if needed for nausea ONDANSETRON 07213308667 No Longer Active Yolande Lindsay MD PhD Active CEFTIN 500 MG TAB 1 twice a day CEFUROXIME AXETIL 00730290201 No Longer Active Yolande Lindsay MD PhD Active ALBUTEROL SULFATE 0.083 % NEBU SOLN one vial per nebulizer every 4-6 hours as needed ALBUTEROL SULFATE 57154173045 No Longer Active Alexis Ordaz MD Active DOXYCYCLINE HYCLATE 100 MG CAP 1 cap by mouth twice daily DOXYCYCLINE HYCLATE 18025694431 No Longer Active Yolande Lindsay MD PhD Active CYCLOBENZAPRINE HCL 10 MG TABS 1/2 - 1 tab by mouth three times daily if needed for spasms/pain CYCLOBENZAPRINE HCL 81499203173 No Longer Active Yolande Lindsay MD PhD Active AZITHROMYCIN 250 MG TABS 2 pills on day 1, then 1 pill daily x 4 days AZITHROMYCIN 37444580176 No Longer Active Yolande Lindsay MD PhD Active XOPENEX 1.25 MG/3ML NEBU 1 neb every 4 hours if needed for cough/congestion LEVALBUTEROL HCL 36258199270 No Longer Active Yolande Lindsay MD PhD Active DOXYCYCLINE HYCLATE 100 MG TAB 1 tab twice a day for 14 days 2013 DOXYCYCLINE HYCLATE 04722881393 No Longer Active Yolande Lindsay MD PhD Active PREVACID 30 MG CPDR Take 1 tablet by mouth daily-PRN LANSOPRAZOLE 33067787316 No Longer Active Yolande Lindsay MD PhD Active PA VITAMIN D-3 2000 UNIT CAPS 1 CAP PO DAILY CHOLECALCIFEROL 63800440018 No Longer Active Yolande Lindsay MD PhD Active CEFDINIR 300 MG CAPS by mouth twice a day CEFDINIR 66354885438 No Longer Active Gab Padron MD Active TOPAMAX 50 MG TABS 1 PO twice daily TOPIRAMATE 93640409560 Active Yolande Lindsay MD PhD Active AZITHROMYCIN 250 MG TABS 2 po qd x 1 day, then 1 po qd x 4 days AZITHROMYCIN 23743082909 No Longer Active Yoladne Lindsay MD PhD Active DICLOFENAC SODIUM 75 MG TBEC 1 tablet by q 12 hours PRN headaches DICLOFENAC SODIUM 80038365511 No Longer Active Yolande Lindsay MD PhD Active FLONASE 50 MCG/ACT SUSP 1 spray each nostril am and hs FLUTICASONE PROPIONATE 20991689478 No Longer Active Todd Callaway MD Active ANUSOL-HC 25 MG SUPPOSITORY 1 rectally twice a day as needed for hemorrhoids HYDROCORTISONE JAYDEN (RECTAL) 12231776981 No Longer Active Yolande Lindsay MD PhD Active ANUSOL-HC 25 MG SUPPOSITORY 1 suppository rectally each evening as needed for anal fissure HYDROCORTISONE JAYDEN (RECTAL) 65319186851 No Longer Active LONNIE Iglesias Active VALIUM 5 MG TAB 1 po 30 minutes prior to your MRI DIAZEPAM 54690061675 No Longer Active LONNIE Iglesias Active METHOCARBAMOL 750 MG TABS 1 PO QID PRN METHOCARBAMOL 15398500639 No Longer Active Daphne Wetzel APRN Active NITROSTAT 0.4 MG SUBL as directed NITROGLYCERIN 27482623192 No Longer Active Jillina Frazell HAIRSPRING ADJUSTER Active ROBAXIN-750 750 MG TABS 2 four times a day for 3 days as needed for muscle spasm, then 1 four times a day as needed METHOCARBAMOL 96216154187 No Longer Active Silvestrellnacho Sarah APRN Active HYDROCODONE-ACETAMINOPHEN 5-325 MG TABS 1 q 4-6 hrs prn HYDROCODONE-ACETAMINOPHEN 10256705426 No Longer Active Silvestrellnacho Sarah APRN Active VERAPAMIL HCL CR 180 MG CR-TABS TAKE 1 TAB DAILY VERAPAMIL HCL 26725255723 No Longer Active Yolande Lindsay MD PhD Active BACTRIM DS 800-160 MG TAB 1 tab by mouth twice daily TRIMETHOPRIM-SULFAMETHOXAZOLE 15756660205 No Longer Active Yolande Lindsay MD PhD Active NEXIUM 40 MG PACK 1 by mouth daily ESOMEPRAZOLE MAGNESIUM 25515495657 No Longer Active Des Hines MD Active EPIPEN 2-CHARLETTE 0.3 MG/0.3ML OMARI as need for allergic reaction EPINEPHRINE 49131423422 Active Yolande Lindsay MD PhD Active NEXIUM 40 MG CPDR 1 PO Q D DAY ESOMEPRAZOLE MAGNESIUM 61700334056 No Longer Active Sadia Perry RN Active NEXIUM 40 MG PACK 1 by mouth daily NEXIUM 40 MG PACK ESOMEPRAZOLE MAGNESIUM Inactive VERAPAMIL HCL CR 180 MG CR-TABS TAKE 1 TAB DAILY VERAPAMIL HCL CR 180 MG CR-TABS VERAPAMIL HCL Inactive HYDROCODONE-ACETAMINOPHEN 5-325 MG TABS 1 q 4-6 hrs prn HYDROCODONE-ACETAMINOPHEN 5-325 MG TABS 291462 HYDROCODONE-ACETAMINOPHEN Inactive ROBAXIN-750 750 MG TABS 2 four times a day for 3 days as needed for muscle spasm, then 1 four times a day as needed ROBAXIN-750 750 MG TABS 594540 METHOCARBAMOL Inactive NITROSTAT 0.4 MG SUBL as directed NITROSTAT 0.4 MG SUBL 006826 NITROGLYCERIN Inactive METHOCARBAMOL 750 MG TABS 1 PO QID PRN METHOCARBAMOL 750 MG TABS 576511 METHOCARBAMOL Inactive VALIUM 5 MG TAB 1 po 30 minutes prior to your MRI VALIUM 5 MG TAB 689677 DIAZEPAM Inactive ANUSOL-HC 25 MG SUPPOSITORY 1 suppository rectally each evening as needed for anal fissure ANUSOL-HC 25 MG SUPPOSITORY 9195292 HYDROCORTISONE JAYDEN (RECTAL) Inactive ANUSOL-HC 25 MG SUPPOSITORY 1 rectally twice a day as needed for hemorrhoids ANUSOL-HC 25 MG SUPPOSITORY 1913612 HYDROCORTISONE JAYDEN (RECTAL) Inactive FLONASE 50 MCG/ACT SUSP 1 spray each nostril am and hs FLONASE 50 MCG/ACT SUSP 0350713 FLUTICASONE PROPIONATE Inactive DICLOFENAC SODIUM 75 MG TBEC 1 tablet by q 12 hours PRN headaches DICLOFENAC SODIUM 75 MG TBEC 740703 DICLOFENAC SODIUM Inactive PA VITAMIN D-3 2000 UNIT CAPS 1 CAP PO DAILY PA VITAMIN D-3 2000 UNIT CAPS CHOLECALCIFEROL Inactive PREVACID 30 MG CPDR Take 1 tablet by mouth daily-PRN PREVACID 30 MG CPDR 672356 LANSOPRAZOLE Inactive DOXYCYCLINE HYCLATE 100 MG TAB 1 tab twice a day for 14 days 2013 DOXYCYCLINE HYCLATE 100 MG TAB 2953512 DOXYCYCLINE HYCLATE Inactive XOPENEX 1.25 MG/3ML NEBU 1 neb every 4 hours if needed for cough/congestion XOPENEX 1.25 MG/3ML NEBU 737872 LEVALBUTEROL HCL Inactive CYCLOBENZAPRINE HCL 10 MG TABS 1/2 - 1 tab by mouth three times daily if needed for spasms/pain CYCLOBENZAPRINE HCL 10 MG TABS 669237 CYCLOBENZAPRINE HCL Inactive ALBUTEROL SULFATE 0.083 % NEBU SOLN one vial per nebulizer every 4-6 hours as needed ALBUTEROL SULFATE 0.083 % NEBU SOLN 891900 ALBUTEROL SULFATE Inactive CEFTIN 500 MG TAB 1 twice a day CEFTIN 500 MG TAB 024889 CEFUROXIME AXETIL Inactive ZOFRAN ODT 4 MG TBDP 1 pill dissolved by mouth every 4 hours if needed for nausea ZOFRAN ODT 4 MG TBDP 049521 ONDANSETRON Inactive ADULT ASPIRIN EC LOW STRENGTH 81 MG TBEC Take 1 tablet by mouth daily 2014 ADULT ASPIRIN EC LOW STRENGTH 81 MG TBEC 368556 ASPIRIN Inactive CALCIUM 600+D PLUS MINERALS 600-400 [...] or an apple NIACIN 500 MG TABS 945436 NIACIN Inactive NIASPAN 500 MG ORAL CR-TABS 1 pill nightly x 1 week, then 2 pills nightly x 1 week, then 3 pills nightly x 1 week, then 4 pills nightly NIASPAN 500 MG ORAL CR-TABS NIACIN (ANTIHYPERLIPIDEMIC) Inactive OXYCODONE HCL 5 MG ORAL CAPS 1 TAB PO Q HS OXYCODONE HCL 5 MG ORAL CAPS 3385146 OXYCODONE HCL Inactive FLUTICASONE PROPIONATE 50 MCG/ACT SUSP 1 to 2 sprays each nostril daily 04/21 FLUTICASONE PROPIONATE 50 MCG/ACT SUSP 7531550 FLUTICASONE PROPIONATE Inactive POLYTRIM 94664-6.1 UNIT/ML-% SOLN 1 gtt to affected eye q3h x 7 days POLYTRIM 79635-6.1 UNIT/ML-% SOLN 308482 POLYMYXIN B- TRIMETHOPRIM Inactive CHERATUSSIN AC 100-10 MG/5ML SYRP 1 tsp by mouth every 4 hours as needed for cough CHERATUSSIN AC 100-10 MG/5ML SYRP 736814 GUAIFENESIN-CODEINE Inactive LEVOTHYROXINE SODIUM 75 MCG TABS Take 1 tab daily LEVOTHYROXINE SODIUM 75 MCG TABS 647919 LEVOTHYROXINE SODIUM Inactive CLARITIN 10 MG TAB 1 tablet by mouth daily as needed for allergies CLARITIN 10 MG TAB 407825 LORATADINE Inactive FISH OIL 1000 MG CAPS 3 pills daily FISH OIL 1000 MG CAPS OMEGA-3 FATTY ACIDS Inactive ONDANSETRON 4 MG TBDP 1 q4h PRN nausea ONDANSETRON 4 MG TBDP 246353 ONDANSETRON Inactive ADVAIR DISKUS 250-50 MCG/DOSE AEPB 1 puff BID ADVAIR DISKUS 250-50 MCG/DOSE AEPB FLUTICASONE-SALMETEROL Inactive TRAMADOL HCL 50 MG TABS 1 tab po every 6 hrs prn pain TRAMADOL HCL 50 MG TABS 899181 TRAMADOL HCL Inactive TRIAMCINOLONE ACETONIDE 0.1 % CREA apply bid sparingly to rash TRIAMCINOLONE ACETONIDE 0.1 % CREA 3111810 TRIAMCINOLONE ACETONIDE Inactive BACTRIM DS 800-160 MG TAB 1 tab by mouth twice daily BACTRIM DS 800-160 MG TAB 265476 TRIMETHOPRIM-SULFAMETHOXAZOLE Inactive AZITHROMYCIN 250 MG TABS 2 po qd x 1 day, then 1 po qd x 4 days AZITHROMYCIN 250 MG TABS 3597718 AZITHROMYCIN Inactive CEFDINIR 300 MG CAPS by mouth twice a day CEFDINIR 300 MG CAPS 298283 CEFDINIR Inactive AZITHROMYCIN 250 MG TABS 2 pills on day 1, then 1 pill daily x 4 days AZITHROMYCIN 250 MG TABS 3288912 AZITHROMYCIN Inactive DOXYCYCLINE HYCLATE 100 MG CAP 1 cap by mouth twice daily DOXYCYCLINE HYCLATE 100 MG CAP 0882819 DOXYCYCLINE HYCLATE Inactive FUROSEMIDE 20 MG TABS 1 pill by mouth daily, for edema FUROSEMIDE 20 MG TABS 480704 FUROSEMIDE Inactive AZITHROMYCIN 250 MG TABS 2 po qd x 1 day, then 1 po qd x 4 days AZITHROMYCIN 250 MG TABS 3113956 AZITHROMYCIN Inactive CEFTIN 500 MG TAB 1 twice a day CEFTIN 500 MG TAB 992177 CEFUROXIME AXETIL Inactive CEFDINIR 300 MG CAPS 1 po BID x 10 days CEFDINIR 300 MG CAPS 151282 CEFDINIR Inactive BACTRIM DS 800-160 MG TAB 1 tab by mouth twice daily BACTRIM DS 800-160 MG TAB 331824 TRIMETHOPRIM-SULFAMETHOXAZOLE Inactive PREDNISONE 20 MG TAB 2 tabs daily for 3 days, 1 tab daily for 3 days, 1/2 tab daily for 2 days PREDNISONE 20 MG TAB 872711 PREDNISONE Inactive PREDNISONE 20 MG TAB take 3 tabs daily for 3 days, 2 tabs daily for 3 days, 1 tab daily for 3 days, 1/2 tab daily for 3 days PREDNISONE 20 MG TAB 791921 PREDNISONE Inactive BACTRIM DS 800-160 MG TAB 1 tab by mouth twice daily BACTRIM DS 800-160 MG TAB 278614 TRIMETHOPRIM-SULFAMETHOXAZOLE Inactive Immunizations Vaccine Administration Date Value Standard Description Seasonal influenza vaccine, injectable, containing preservative, for > 3 years old (Afluria, FluLaval, Fluzone, Fluvirin, Fluarix, Agriflu(>=18 yo)) Fluzone (>3 yrs.) [KIO230] Influenza, seasonal, injectable influenza immunization (Flu Vax) has been administered Influenza - Unspecified Formulation [CVX88] influenza virus vaccine, unspecified formulation pneumococcal immunization administered Pneumovax 23 [CVX33] pneumococcal polysaccharide vaccine, 23 valent Seasonal influenza vaccine, injectable, containing preservative, for > 3 years old (Afluria, FluLaval, Fluzone, Fluvirin, Fluarix, Agriflu(>=18 yo)) Fluzone (>3 yrs.) [MLZ510] Influenza, seasonal, injectable dT (Diphtheria and Tetanus) booster given given Td(adult) unspecified formulation Boostrix (Tetanus toxoid, reduced diphtheria toxoid and acellular pertussis vaccine, adsorbed), booster Boostrix [JHH644] tetanus toxoid, reduced diphtheria toxoid, and acellular pertussis vaccine, adsorbed Vital Signs Date Name Value Unit Range Description blood pressure, diastolic 68 mm[Hg] BP weldon blood pressure, systolic 137 mm[Hg] BP sys height E&M 52.5 [in_us] Bdy height pulse rate E&M 65 /min Heart rate temperature E&M 97.8 [degF] Body temperature weight E&M 249.5 [lb_av] Weight Measured blood pressure, diastolic 88 mm[Hg] BP welodn blood pressure, systolic 154 mm[Hg] BP sys [...] PANEL - Chemistry cholesterol, serum 166 mg/dL 380-345 0875/12/06 triglyceride, serum, fasting 86 mg/dL 30-200 HDL [...] negative Encounters Code Encounter Date Provider Facility CPT-60881 Level 3 Est. Patient 14:50:29 CDT Gab Padron MD [facility] CPT-46104 Level 3 Est. Patient 14:46:09 CDT Tisha Lambert APRN [facility] CPT-53282 Level 4 New Patient 16:13:15 CDT Todd Callaway MD [facility] CPT-93942 Level 4 Est. Patient 13:18:33 CDT Gab Padron MD [facility] CPT-72918 Level 3 Est. Patient 15:20:50 CDT Jared Og MD [facility] CPT-02726 Level 3 Est. Patient 17:43:55 OPERATING ROOM SURGICAL TECHNICIAN Gab Padron MD [facility] CPT-17616 Level 3 Est. Patient 17:07:49 OPERATING ROOM SURGICAL TECHNICIAN Jared Og MD [facility] CPT-36321 Level 4 Est. Patient 19:55:18 OPERATING ROOM SURGICAL TECHNICIAN Jared Og MD [facility] CPT-95036 Level 3 Est. Patient 20:13:34 OPERATING ROOM SURGICAL TECHNICIAN Jared Og MD [facility] CPT-74989 Level 4 Est. Patient 16:31:27 CDT Gab Padron MD [facility] CPT-70210 Level 2 Est. Patient 12:23:38 CDT Jared Og MD [facility] CPT-87531 Level 3 Est. Patient 11:01:51 CDT Gab Padron MD [facility] CPT-80184 Level 3 Est. Patient 15:27:02 CDT Jared Og MD [facility] CPT-92312 Level 4 Est. Patient 09:25:27 CDT Gab Padron MD [facility]-91127 Level 3 Est. Patient 10:29:41 CDT [facility] Est[facility] Patient 17:51:05 CDT Gab Padron MD [facility]-30435 Level 3 Est. Patient 14:18:08 CDT Gab Padron MD [facility]-95657 Level 4 Est. Patient 10:18:54 CDT Gab Padron MD [facility]-15694 Level 3 Est. Patient 11:30:07 CDT Rodrigo Sarah [facility]-30809 Level 4 Est. Patient 21:02:30 OPERATING ROOM SURGICAL TECHNICIAN Gab Padron MD [facility]-53092 Level 3 Est. Patient 11:02:19 OPERATING ROOM SURGICAL TECHNICIAN Gab Padron MD [facility]-72818 Level 4 Est. Patient 22:24:31 OPERATING ROOM SURGICAL TECHNICIAN Gab Padron MD [facility]-62449 Level 3 Est. Patient 18:33:46 OPERATING ROOM SURGICAL TECHNICIAN Gab Padron MD [facility]-07129 Level 3 Est. Patient 16:19:11 CDT Yolande Lindsay MD [facility]-70085 Level 3 Est. Patient 18:59:14 CDT Yolande Lindsay MD [facility]-04963 Level 4 Est. Patient 21:29:26 CDT Yolande Lindsay MD [facility]-18092 Level 3 Est. Patient 07:37:45 CDT Yolande Lindsay MD [facility]-64655 Level 3 Est. Patient 17:03:46 CDT Yolande Lindsay MD [facility]-08557 Level 4 Est. Patient 20:02:13 OPERATING ROOM SURGICAL TECHNICIAN Yolande Lindsay MD [facility] CPT-52395 Level 3 Est. Patient 16:02:07 OPERATING ROOM SURGICAL TECHNICIAN Alexis Ordaz MD [facility] CPT-94469 Level 3 Est. Patient 12:41:24 OPERATING ROOM SURGICAL TECHNICIAN Yolande Lindsay MD [facility] CPT-25292 Level 3 Est. Patient 15:41:20 OPERATING ROOM SURGICAL TECHNICIAN Yolande Lindsay MD [facility] CPT-19865 Level 3 Est. Patient 13:20:02 OPERATING ROOM SURGICAL TECHNICIAN Yolande Lindsay MD [facility] CPT-44513 Level 3 Est. Patient 15:00:38 CDT Jared Og MD [facility]-75253 Level 3 Est. Patient 10:22:32 CDT Yolande Lindsay MD [facility] CPT-02231 Level 3 Est. Patient 17:12:58 CDT Yolande Lindsya MD [facility] CPT-81209 Level 4 Est. Patient 13:30:58 CDT Yolande Lindsay MD [facility] CPT-76580 Level 4 New Patient 09:02:42 CDT Jared Og MD [facility] CPT-84704 Level 3 Est. Patient 08:19:07 CDT Yolande Lindsay MD [facility] CPT-45358 Level 3 Est. Patient 12:00:13 OPERATING ROOM SURGICAL TECHNICIAN Gab Padron MD [facility] CPT-26839 Level 3 Est. Patient 16:15:23 OPERATING ROOM SURGICAL TECHNICIAN Yolande Lindsay MD [facility] CPT-84621 Level 2 Est. Patient 19:47:15 CDT Yolande Lindsay MD [facility] CPT-36734 Level 3 Est. Patient 21:38:31 CDT Yolande Lindsay MD [facility]-94612 Level 3 Est. Patient 10:25:12 CDT Adiel PERAZA [facility]-19420 Level 4 Est. Patient 10:51:58 CDT Yolande Lindsay MD [facility]-88717 Level 3 Est. Patient 14:04:55 OPERATING ROOM SURGICAL TECHNICIAN Rodrigo Sarah [facility]-30863 Level 3 Est. Patient 10:46:35 OPERATING ROOM SURGICAL TECHNICIAN Rodrigo Sarah [facility] CPT-67216 Level 3 Est. Patient 14:24:37 OPERATING ROOM SURGICAL TECHNICIAN Yolande Lindsay MD [facility]-39317 Level 3 Est. Patient 17:41:58 OPERATING ROOM SURGICAL TECHNICIAN Yolande Lindsay MD [facility]-75184 Level 2 Est. Patient 22:01:41 OPERATING ROOM SURGICAL TECHNICIAN Rodrigo Sarah [facility]-39835 Level 2 Est. Patient 22:01:11 OPERATING ROOM SURGICAL TECHNICIAN Rodrigo Sarah [facility]-09559 Level 3 Est. Patient 10:12:29 OPERATING ROOM SURGICAL TECHNICIAN Rodrigo Sarah [facility] CPT-01048 Level 3 Est. Patient 11:05:44 CDT Alexis Ordaz MD [facility]-35386 Level 3 Est. Patient 14:57:20 CDT Yolande Lindsay MD [facility]-22204 Level 3 Est. Patient 14:40:57 CDT Yolande Lindsay MD [facility]-59999 Level 3 Est. Patient 20:55:40 CDT Yolande Lindsay MD [facility]-12117 Level 3 Est. Patient 12:42:38 OPERATING ROOM SURGICAL TECHNICIAN Yolande Lindsay MD [facility]27264 Level 3 Est. Patient 11:54:49 OPERATING ROOM SURGICAL TECHNICIAN Des Hines MD [facility] CPT-17261 Level 3 Est. Patient 17:06:38 CDT Dewayne PERAZA [facility] Procedures Code Procedure Name Date Entry Date Standard Description CPT-J2930 Solu Medrol 125 mg (Methyl Prednisolone Sodium Succinate) 13:19:02 CDT CPT-67889 Abx/Therapy Injection 13:19:02 CDT CPT-J2930 Solu Medrol 125 mg (Methyl Prednisolone Sodium Succinate) 13:05:03 CDT CPT-84842 Hip, complete, 2-3 views - XRAY USE ONLY 17:19:04 OPERATING ROOM SURGICAL TECHNICIAN CPT-02580 Venipuncture Draw Fee 08:37:59 OPERATING ROOM SURGICAL TECHNICIAN CPT-32044 Liver Profile - LAB USE ONLY 08:37:59 OPERATING ROOM SURGICAL TECHNICIAN CPT-35799 Lipid - LAB USE ONLY 08:37:58 OPERATING ROOM SURGICAL TECHNICIAN CPT-07753 First Vx - Ix admin via ID IM or jet injects without counseling by physician 11:52:31 CDT CPT-11358 Fluzone Preservative Free Intramuscular Suspension 11:52 :31 CDT CPT-63616 Foot, left, comp min 3V - XRAY USE ONLY 09:24:54 CDT CPT-36633 Abd single AP View - XRAY USE ONLY 11:16:17 CDT CPT-94971 T spine AP/ Lat - XRAY USE ONLY 09:34:21 CDT CPT-93420 Chest 2V Frontal and Lat - XRAY USE ONLY 10:48:51 CDT CPT-38931 LS spine comp w obliq 13:28:00 OPERATING ROOM SURGICAL TECHNICIAN CPT-J1040 Depo Medrol 80 mg (Methyl Prednisolone Acetate) 10:51: 28 OPERATING ROOM SURGICAL TECHNICIAN CPT-J1100 Decadron 8mg (Dexamethasone) 10:51:28 OPERATING ROOM SURGICAL TECHNICIAN CPT-56188 Abx/Therapy Injection 10:51:28 OPERATING ROOM SURGICAL TECHNICIAN CPT-J1100 Decadron 8mg (Dexamethasone) 21:02:30 OPERATING ROOM SURGICAL TECHNICIAN CPT-J1040 Depo Medrol 80 mg (Methyl Prednisolone Acetate) 21:02: 30 OPERATING ROOM SURGICAL TECHNICIAN [id number] Event Monitor - MC Transmission 09:12:32 CDT 08/06 [id number] Event Monitor - MC review and interp 09:12:32 CDT [id number] Event Monitor - MC recording 09:12:32 CDT CPT-79951 EKG Trac and Interp 16:50:22 CDT CPT-J1030 Depo Medrol 40 mg (Methyl Prednisolone Acetate) 17:05: 54 CDT CPT-J1100 Decadron 4mg (Dexamethasone) 17:05:54 CDT CPT-78076 Abx/Therapy Injection 17:05:54 CDT CPT-J1100 Decadron 4mg (Dexamethasone) 16:55:28 CDT CPT-J1030 Depo Medrol 40 mg (Methyl Prednisolone Acetate) 16:55: 28 CDT CPT-47885 Ankle Complete - Min 3V 15:58:50 CDT CPT-77707 Knee 3V 15:58:50 CDT CPT-56737 Hip comp min 2V 15:58:50 CDT CPT-J2270 Morphine Sulfate 10 mg 14:25:44 OPERATING ROOM SURGICAL TECHNICIAN CPT-J2550 Phenergan 12.5 mg (Promethazine) 14:25:44 OPERATING ROOM SURGICAL TECHNICIAN CPT-56967 Abx/Therapy Injection 14:25:44 OPERATING ROOM SURGICAL TECHNICIAN CPT-J2550 Phenergan 12.5 mg (Promethazine) 14:08:03 OPERATING ROOM SURGICAL TECHNICIAN CPT-J2270 Morphine Sulfate 10 mg 14:08:03 OPERATING ROOM SURGICAL TECHNICIAN CPT-49298 Bladder Scan 15:00:38 CDT CPT-TCMM Transitional Care Mgmt-Moderate 09:52:22 CDT CPT-J1030 Depo Medrol 40 mg (Methyl Prednisolone Acetate) 10:55: 18 CDT CPT-J1100 Decadron 4mg (Dexamethasone) 10:55:18 CDT CPT-86304 Abx/Therapy Injection 10:55:18 CDT CPT-J1030 Depo Medrol 40 mg (Methyl Prednisolone Acetate) 10:22: 32 CDT CPT-J1100 Decadron 4mg (Dexamethasone) 10:22:32 CDT CPT-30206 Postop F/U Visit 14:37:13 CDT CPT-35333 Ankle Complete - Min 3V 17:11:58 CDT CPT-20174 Foot comp min 3V 17:11:58 CDT CPT-74858 Bladder Scan 09:56:58 CDT CPT-50845 Postop F/U Visit 09:56:58 CDT CPT-91874 Cystoscopy 09:02:42 CDT CPT-50282 Bladder Scan 09:02:42 CDT CPT-17790 Abd single AP View 16:00:35 CDT CPT-31623 Administration single or combination vaccine inc oral 10 :15:43 CDT CPT-88863 Influenza split virus > age 3 10:15:43 CDT CPT-37626 Nail Avulsion 09:24:57 CDT CPT-OV Office Visit 11:15:41 CDT CPT-10203 Abx/Therapy Injection 10:51:30 CDT CPT-J3301 Kenalog 40 mg (Triamcinolone Acetonide) 10:25:12 CDT CPT-J1100 Decadron 4mg (Dexamethasone) 10:25:12 CDT CPT-25599 Anoscopy diagnostic 10:36:12 CDT CPT-OV Office Visit 15:34:31 CDT CPT-98275 Abx/Therapy Injection 08:21:15 OPERATING ROOM SURGICAL TECHNICIAN CPT-J1885 Toradol 60 mg (Ketorolac) 10:46:35 OPERATING ROOM SURGICAL TECHNICIAN CPT-OV Office Visit 19:51:16 OPERATING ROOM SURGICAL TECHNICIAN CPT-75078 Spec Collection and Handling Fee 14:34:18 OPERATING ROOM SURGICAL TECHNICIAN CPT-PV Prev. Care Visit 14:19:18 OPERATING ROOM SURGICAL TECHNICIAN CPT-31768 Postop F/U Visit 14:47:51 OPERATING ROOM SURGICAL TECHNICIAN CPT-62496 Postop F/U Visit 15:15:14 OPERATING ROOM SURGICAL TECHNICIAN CPT-96037 Postop F/U Visit 14:41:43 CDT CPT-98323 Postop F/U Visit 15:47:46 CDT CPT-OV Office Visit 15:27:23 CDT CPT-OV Office Visit 17:20:34 CDT CPT-49360 Abx/Therapy Injection 15:05:57 CDT CPT-J1100 Decadron 8mg (Dexamethasone) 14:44:57 CDT CPT-J1040 Depo Medrol 80 mg (Methyl Prednisolone Acetate) 14:44: 57 CDT CPT-JTINJ Joint Injection 10:17:37 CDT CPT-86123 Administration 2+ single or combination vaccines inc oral 13:01:46 OPERATING ROOM SURGICAL TECHNICIAN CPT-74653 Administration single or combination vaccine inc oral 13 :01:46 OPERATING ROOM SURGICAL TECHNICIAN CPT-02132 Pneumovax 13:01:46 OPERATING ROOM SURGICAL TECHNICIAN CPT-92289 Influenza split virus > age 3 13:01:46 OPERATING ROOM SURGICAL TECHNICIAN CPT-89014 Administration single or combination vaccine inc oral 08 :56:49 CDT CPT-24904 Tdap 08:56:49 CDT
--- OUTSIDE RECORDS SUMMARY | 2017-03-21 23:17 | XMS REPORT | Clinical Summary ---
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 Jillina Frazellilian HOT BRAIDER 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 Anemia 285.9 Active Gab Padron MD Anemia, unspecified Conjunctivitis 372.30 Active Jillina Tyrel HOT BRAIDER Conjunctivitis, unspecified Sinusitis 473.9 Active Jillnacho Sarah APRN Unspecified sinusitis (chronic) Nonspecific syndrome suggestive of [...] Padron MD Other and unspecified factitious illness FOOT PAIN, RIGHT ICD-729.5 Inactive Yolande Lindsay [...] 1 tab by mouth twice daily TRIMETHOPRIM-SULFAMETHOXAZOLE 42662172403 No Longer Active Gab Padron MD Active ADVAIR DISKUS 250-50 MCG/DOSE AEPB 1 puff BID FLUTICASONE- SALMETEROL 14031905658 Active Rodrigo Sarah APRN Active LEVOTHYROXINE SODIUM 75 MCG TABS Take 1 tab daily LEVOTHYROXINE SODIUM 70246423355 No Longer Active Mariana FLEMING Active SYNTHROID 88 MCG ORAL TABS Take one by mouth daily LEVOTHYROXINE SODIUM 05981854247 Active Mariana FLEMING Active CHERATUSSIN AC 100-10 MG/5ML SYRP 1 tsp by mouth every 4 hours as needed for cough GUAIFENESIN-CODEINE 43486163829 No Longer Active Gab Padron MD Active POLYTRIM 81028-7.1 UNIT/ML-% SOLN 1 gtt to affected eye q3h x 7 days POLYMYXIN B-TRIMETHOPRIM 51728527073 No Longer Active Gab Padron MD Active FLUTICASONE PROPIONATE 50 MCG/ACT SUSP 1 to 2 sprays each nostril daily 04/21 FLUTICASONE PROPIONATE 45927600567 No Longer Active Gab Padron MD Active TRILEPTAL 600 MG TABS Take one 1 tablet in Am and 1 tablet at night OXCARBAZEPINE 47678711767 Active Gab Padron MD Active CEFDINIR 300 MG CAPS 1 po BID x 10 days CEFDINIR 63592377335 No Longer Active Rodrigo Sarah APRN Active CEFTIN 500 MG TAB 1 twice a day CEFUROXIME AXETIL 72450526339 No Longer Active Gab Padron MD Active AZITHROMYCIN 250 MG TABS 2 po qd x 1 day, then 1 po qd x 4 days AZITHROMYCIN 44417123390 No Longer Active Rodrigo Sarah APRN Active CLARITIN 10 MG TAB 1 tablet by mouth daily as needed for allergies LORATADINE 43780202771 Active Rodrigo Sarah APRN Active OXYCODONE HCL 5 MG ORAL CAPS 1 TAB PO Q HS OXYCODONE HCL 35277851340 No Longer Active Rodrigo Sarah APRN Active NIASPAN 500 MG ORAL CR-TABS 1 pill nightly x 1 week, then 2 pills nightly x 1 week, then 3 pills nightly x 1 week, then 4 pills nightly NIACIN (ANTIHYPERLIPIDEMIC) 49706264885 No Longer Active Rodrigo Sarah APRN Active NIACIN 500 MG TABS 1 pill by mouth nightly x 1 week, then 2 pills x 1 week, then 3 pills x 1 week, then 4 pills nightly - take after evening meal, with applesauce or an apple NIACIN 69858433454 No Longer Active Yolande Lindsay MD PhD Active FISH OIL 1000 MG CAPS 3 pills daily OMEGA-3 FATTY ACIDS 65816254605 Active Yolande Lindsay MD PhD Active TRIAMCINOLONE ACETONIDE 0.1 % CREA apply bid sparingly to rash TRIAMCINOLONE ACETONIDE 84896815653 Active Yolande Lindsay MD PhD Active FUROSEMIDE 20 MG TAB 1 tablet by mouth daily FUROSEMIDE 28443983728 Active Tisha Lambert APRN Active LISINOPRIL 20 MG ORAL TABS 1 tab by mouth daily LISINOPRIL 21757746391 Active Gab Padron MD Active FUROSEMIDE 20 MG TABS 1 pill by mouth daily, for edema FUROSEMIDE 98055822219 No Longer Active Yolande Lindsay MD PhD Active ATORVASTATIN CALCIUM 10 MG TABS 1 pill by mouth daily, for cholesterol 09/06 ATORVASTATIN CALCIUM 26058201791 Active Gab Padron MD Active CALCIUM 600+D PLUS MINERALS 600-400 MG-UNIT ORAL CHEW 1 tab by mouth daily CALCIUM CARBONATE-VIT D-MIN 71998178163 No Longer Active Yolande Lindsay MD PhD Active CYCLOBENZAPRINE HCL 10 MG TABS 1 tablet by mouth three times daily as needed for muscle spasm/pain CYCLOBENZAPRINE HCL 82327821838 Active Yolande Lindsay MD PhD Active ONDANSETRON 4 MG TBDP 1 q4h PRN nausea ONDANSETRON 70933137795 Active Yolande Lindsay MD PhD Active ADULT ASPIRIN EC LOW STRENGTH 81 MG TBEC Take 1 tablet by mouth daily 2014 ASPIRIN 79851626481 No Longer Active Yolande Lindsay MD PhD Active ZOFRAN ODT 4 MG TBDP 1 pill dissolved by mouth every 4 hours if needed for nausea ONDANSETRON 07704962471 No Longer Active Yolande Lindsay MD PhD Active CEFTIN 500 MG TAB 1 twice a day CEFUROXIME AXETIL 52447715646 No Longer Active Yolande Lindsay MD PhD Active ALBUTEROL SULFATE 0.083 % NEBU SOLN one vial per nebulizer every 4-6 hours as needed ALBUTEROL SULFATE 77343309202 No Longer Active Alexis Ordaz MD Active DOXYCYCLINE HYCLATE 100 MG CAP 1 cap by mouth twice daily DOXYCYCLINE HYCLATE 26454440715 No Longer Active Yolande Lindsay MD PhD Active CYCLOBENZAPRINE HCL 10 MG TABS 1/2 - 1 tab by mouth three times daily if needed for spasms/pain CYCLOBENZAPRINE HCL 28509513820 No Longer Active Yolande Lindsay MD PhD Active AZITHROMYCIN 250 MG TABS 2 pills on day 1, then 1 pill daily x 4 days AZITHROMYCIN 54752817537 No Longer Active Yolande Lindsay MD PhD Active XOPENEX 1.25 MG/3ML NEBU 1 neb every 4 hours if needed for cough/congestion LEVALBUTEROL HCL 95856675115 No Longer Active Yolande Lindsay MD PhD Active DOXYCYCLINE HYCLATE 100 MG TAB 1 tab twice a day for 14 days 2013 DOXYCYCLINE HYCLATE 77708508958 No Longer Active Yolande Lindsay MD PhD Active PREVACID 30 MG CPDR Take 1 tablet by mouth daily-PRN LANSOPRAZOLE 41883832866 No Longer Active Yolande Lindsay MD PhD Active PA VITAMIN D-3 2000 UNIT CAPS 1 CAP PO DAILY CHOLECALCIFEROL 70108342896 No Longer Active Yolande Lindsay MD PhD Active CEFDINIR 300 MG CAPS by mouth twice a day CEFDINIR 21183231225 No Longer Active Gab Padron MD Active TOPAMAX 50 MG TABS 1 PO twice daily TOPIRAMATE 71442812505 Active Yolande Lindsay MD PhD Active AZITHROMYCIN 250 MG TABS 2 po qd x 1 day, then 1 po qd x 4 days AZITHROMYCIN 63067697677 No Longer Active Yolande Lindsay MD PhD Active DICLOFENAC SODIUM 75 MG TBEC 1 tablet by q 12 hours PRN headaches DICLOFENAC SODIUM 29893751317 No Longer Active Yolande Lindsay MD PhD Active FLONASE 50 MCG/ACT SUSP 1 spray each nostril am and hs FLUTICASONE PROPIONATE 15535212762 No Longer Active Todd Callaway MD Active ANUSOL-HC 25 MG SUPPOSITORY 1 rectally twice a day as needed for hemorrhoids HYDROCORTISONE JAYDEN (RECTAL) 37847946220 No Longer Active Yolande Lindsay MD PhD Active ANUSOL-HC 25 MG SUPPOSITORY 1 suppository rectally each evening as needed for anal fissure HYDROCORTISONE JAYDEN (RECTAL) 28853579790 No Longer Active LONNIE Iglesias Active VALIUM 5 MG TAB 1 po 30 minutes prior to your MRI DIAZEPAM 64955785745 No Longer Active LONNIE Iglesias Active METHOCARBAMOL 750 MG TABS 1 PO QID PRN METHOCARBAMOL 06915571319 No Longer Active Daphne Wetzel HOT BRAIDER Active NITROSTAT 0.4 MG SUBL as directed NITROGLYCERIN 43412679344 No Longer Active Rodrigo Sarah APRN Active ROBAXIN-750 750 MG TABS 2 four times a day for 3 days as needed for muscle spasm, then 1 four times a day as needed METHOCARBAMOL 39809252407 No Longer Active Rodrigo Sarah APRN Active HYDROCODONE-ACETAMINOPHEN 5-325 MG TABS 1 q 4-6 hrs prn HYDROCODONE-ACETAMINOPHEN 00165005540 No Longer Active Rodrigo Sarah APRN Active VERAPAMIL HCL CR 180 MG CR-TABS TAKE 1 TAB DAILY VERAPAMIL HCL 98087098496 No Longer Active Yolande Lindsay MD PhD Active BACTRIM DS 800-160 MG TAB 1 tab by mouth twice daily TRIMETHOPRIM-SULFAMETHOXAZOLE 74196307646 No Longer Active Yolande Lindsay MD PhD Active NEXIUM 40 MG PACK 1 by mouth daily ESOMEPRAZOLE MAGNESIUM 47606443241 No Longer Active Des Hines MD Active EPIPEN 2-CHARLETTE 0.3 MG/0.3ML OMARI as need for allergic reaction EPINEPHRINE 75478923500 Active Yolande Lindsay MD PhD Active NEXIUM 40 MG CPDR 1 PO Q D DAY ESOMEPRAZOLE MAGNESIUM 31057158310 No Longer Active Sadia Perry RN Active NEXIUM 40 MG PACK 1 by mouth daily NEXIUM 40 MG PACK ESOMEPRAZOLE MAGNESIUM Inactive VERAPAMIL HCL CR 180 MG CR-TABS TAKE 1 TAB DAILY VERAPAMIL HCL CR 180 MG CR-TABS VERAPAMIL HCL Inactive HYDROCODONE-ACETAMINOPHEN 5-325 MG TABS 1 q 4-6 hrs prn HYDROCODONE-ACETAMINOPHEN 5-325 MG TABS 897997 HYDROCODONE-ACETAMINOPHEN Inactive ROBAXIN-750 750 MG TABS 2 four times a day for 3 days as needed for muscle spasm, then 1 four times a day as needed ROBAXIN-750 750 MG TABS 909307 METHOCARBAMOL Inactive NITROSTAT 0.4 MG SUBL as directed NITROSTAT 0.4 MG SUBL NITROGLYCERIN Inactive METHOCARBAMOL 750 MG TABS 1 PO QID PRN METHOCARBAMOL 750 MG TABS 804693 METHOCARBAMOL Inactive VALIUM 5 MG TAB 1 po 30 minutes prior to your MRI VALIUM 5 MG TAB 890558 DIAZEPAM Inactive ANUSOL-HC 25 MG SUPPOSITORY 1 suppository rectally each evening as needed for anal fissure ANUSOL-HC 25 MG SUPPOSITORY 3396346 HYDROCORTISONE JAYDEN (RECTAL) Inactive ANUSOL-HC 25 MG SUPPOSITORY 1 rectally twice a day as needed for hemorrhoids ANUSOL-HC 25 MG SUPPOSITORY 1851188 HYDROCORTISONE JAYDEN (RECTAL) Inactive FLONASE 50 MCG/ACT SUSP 1 spray each nostril am and hs FLONASE 50 MCG/ACT SUSP FLUTICASONE PROPIONATE Inactive DICLOFENAC SODIUM 75 MG TBEC 1 tablet by q 12 hours PRN headaches DICLOFENAC SODIUM 75 MG TBEC 086950 DICLOFENAC SODIUM Inactive PA VITAMIN D-3 2000 UNIT CAPS 1 CAP PO DAILY PA VITAMIN D-3 2000 UNIT CAPS CHOLECALCIFEROL Inactive PREVACID 30 MG CPDR Take 1 tablet by mouth daily-PRN PREVACID 30 MG CPDR 401312 LANSOPRAZOLE Inactive DOXYCYCLINE HYCLATE 100 MG TAB 1 tab twice a day for 14 days 2013 DOXYCYCLINE HYCLATE 100 MG TAB 8098043 DOXYCYCLINE HYCLATE Inactive XOPENEX 1.25 MG/3ML NEBU 1 neb every 4 hours if needed for cough/congestion XOPENEX 1.25 MG/3ML NEBU 485433 LEVALBUTEROL HCL Inactive CYCLOBENZAPRINE HCL 10 MG TABS 1/2 - 1 tab by mouth three times daily if needed for spasms/pain CYCLOBENZAPRINE HCL 10 MG TABS 471522 CYCLOBENZAPRINE HCL Inactive ALBUTEROL SULFATE 0.083 % NEBU SOLN one vial per nebulizer every 4-6 hours as needed ALBUTEROL SULFATE 0.083 % [facility] SOLN 060554 ALBUTEROL SULFATE Inactive CEFTIN 500 MG TAB 1 twice a day CEFTIN 500 MG TAB 226523 CEFUROXIME AXETIL Inactive ZOFRAN ODT 4 MG TBDP 1 pill dissolved by mouth every 4 hours if needed for nausea ZOFRAN ODT 4 MG TBDP 443497 ONDANSETRON Inactive ADULT ASPIRIN EC LOW STRENGTH 81 MG TBEC Take 1 tablet by mouth daily 2014 ADULT ASPIRIN EC LOW STRENGTH 81 MG TBEC 587298 ASPIRIN Inactive CALCIUM 600+D PLUS MINERALS 600-400 [...] or an apple NIACIN 500 MG TABS 797946 NIACIN Inactive NIASPAN 500 MG ORAL CR-TABS 1 pill nightly x 1 week, then 2 pills nightly x 1 week, then 3 pills nightly x 1 week, then 4 pills nightly NIASPAN 500 MG ORAL CR-TABS NIACIN (ANTIHYPERLIPIDEMIC) Inactive OXYCODONE HCL 5 MG ORAL CAPS 1 TAB PO Q HS OXYCODONE HCL 5 MG ORAL CAPS 5129716 OXYCODONE HCL Inactive FLUTICASONE PROPIONATE 50 MCG/ACT SUSP 1 to 2 sprays each nostril daily 04/21 FLUTICASONE PROPIONATE 50 MCG/ACT SUSP 412896 FLUTICASONE PROPIONATE Inactive POLYTRIM 98194-7.1 UNIT/ML-% SOLN 1 gtt to affected eye q3h x 7 days POLYTRIM 67736-1.1 UNIT/ML-% SOLN 066260 POLYMYXIN B- TRIMETHOPRIM Inactive CHERATUSSIN AC 100-10 MG/5ML SYRP 1 tsp by mouth every 4 hours as needed for cough CHERATUSSIN AC 100-10 MG/5ML SYRP 813100 GUAIFENESIN-CODEINE Inactive LEVOTHYROXINE SODIUM 75 MCG TABS Take 1 tab daily LEVOTHYROXINE SODIUM 75 MCG TABS 794254 LEVOTHYROXINE SODIUM Inactive BACTRIM DS 800-160 MG TAB 1 tab by mouth twice daily BACTRIM DS 800-160 MG TAB 19820606 TRIMETHOPRIM-SULFAMETHOXAZOLE Inactive AZITHROMYCIN 250 MG TABS 2 po qd x 1 day, then 1 po qd x 4 days AZITHROMYCIN 250 MG TABS 8717114 AZITHROMYCIN Inactive CEFDINIR 300 MG CAPS by mouth twice a day CEFDINIR 300 MG CAPS 20020708 CEFDINIR Inactive AZITHROMYCIN 250 MG TABS 2 pills on day 1, then 1 pill daily x 4 days AZITHROMYCIN 250 MG TABS 7270334 AZITHROMYCIN Inactive DOXYCYCLINE HYCLATE 100 MG CAP 1 cap by mouth twice daily DOXYCYCLINE HYCLATE 100 MG CAP 3294100 DOXYCYCLINE HYCLATE Inactive FUROSEMIDE 20 MG TABS 1 pill by mouth daily, for edema FUROSEMIDE 20 MG TABS 524663 FUROSEMIDE Inactive AZITHROMYCIN 250 MG TABS 2 po qd x 1 day, then 1 po qd x 4 days AZITHROMYCIN 250 MG TABS 2655524 AZITHROMYCIN Inactive CEFTIN 500 MG TAB 1 twice a day CEFTIN 500 MG TAB 564998 CEFUROXIME AXETIL Inactive CEFDINIR 300 MG CAPS [...] Fluvirin, Fluarix, Agriflu(>=18 yo)) Fluzone (>3 yrs.) [DJW220] Influenza, seasonal, injectable influenza immunization (Flu Vax) has been administered Influenza - Unspecified Formulation [CVX88] influenza virus vaccine, unspecified formulation Seasonal influenza vaccine, injectable, containing preservative, for > 3 years old (Afluria, FluLaval, Fluzone, Fluvirin, Fluarix, Agriflu(>=18 yo)) Fluzone (>3 yrs.) [VFP354] Influenza, seasonal, injectable pneumococcal immunization administered Pneumovax 23 [CVX33] pneumococcal polysaccharide vaccine, 23 valent dT (Diphtheria and Tetanus) booster given given Td(adult) unspecified formulation Boostrix (Tetanus toxoid, reduced diphtheria toxoid and acellular pertussis vaccine, adsorbed), booster Boostrix [CYR650] tetanus toxoid, reduced diphtheria toxoid, and acellular [...] Panel - Chemistry sodium, serum 142 mmol/L 245-104 0984/06/30 potassium, serum 4.4 mmol/L 3.5-5.2 chloride, serum 108 mmol/L 98-107 carbon dioxide, venous blood 25.1 mmol/L 21.0-32.0 blood glucose 82 mg/dL 65-110 calcium, serum 9.1 mg/dL 8.5-10.1 urea nitrogen, blood 18 mg/dL 7-18 creatinine, serum 1.31 mg/dL 0.55-1.30 Lab Report: [facility] Advanced Lipid and Inlammation Panel /97128 - Chemistry cholesterol, serum 148 mg/dL 122-251 7647/09/02 HDL cholesterol, serum 55 mg/dL > OR=46 [...] (L) - Chemistry sodium, serum 145 mmol/L 183-007 7495/09/02 potassium, serum 4.6 mmol/L 3.5-5.2 chloride, serum [...] Rate - Chemistry sodium, serum 139 mmol/L 732-974 9198/03/24 carbon dioxide, venous blood 22.4 mmol/L 21.0-32.0 [...] ... - Chemistry sodium, serum 143 mmol/L 430-341 5152/05/02 carbon dioxide, venous blood 25.6 mmol/L 21.0-32.0 [...] mg/dL Encounters Code Encounter Date Provider Facility CPT-44745 Level 4 Est. Patient 17:51:05 CDT Gab Padron MD [facility] CPT-19408 Level 3 Est. Patient 14:18:08 CDT Gab Padron MD [facility] CPT-05484 Level 4 Est. Patient 10:18:54 CDT Gab Padron MD [facility] CPT-07510 Level 3 Est. Patient 11:30:07 CDT Rodrigo Sarah APRN [facility] CPT-21205 Level 4 Est. Patient 21:02:30 VICE PRESIDENT TAX Gab Padron MD [facility] CPT-88745 Level 3 Est. Patient 11:02:19 VICE PRESIDENT TAX Gab Padron MD [facility] CPT-85876 Level 4 Est. Patient 22:24:31 VICE PRESIDENT TAX Gab Padron MD [facility] CPT-34868 Level 3 Est. Patient 18:33:46 VICE PRESIDENT TAX Gab Padron MD [facility] CPT-36521 Level 3 Est. Patient 16:19:11 CDT Yolande Lindsay MD [facility] CPT-45841 Level 3 Est. Patient 18:59:14 CDT Yolande Lindsay MD [facility]-39593 Level 4 Est. Patient 21:29:26 CDT Yolande Lindsay MD [facility]-15846 Level 3 Est. Patient 07:37:45 CDT Yolande Lindsay MD [facility]-91204 Level 3 Est. Patient 17:03:46 CDT Yolande Lindsay MD [facility]-84964 Level 4 Est. Patient 20:02:13 VICE PRESIDENT TAX Yolande Lindsay MD [facility]-28608 Level 3 Est. Patient 16:02:07 VICE PRESIDENT TAX Alexis Ordaz MD [facility]-31665 Level 3 Est. Patient 12:41:24 VICE PRESIDENT TAX Yolande Lindsay MD [facility]-25107 Level 3 Est. Patient 15:41:20 VICE PRESIDENT TAX Yolande Lindsay MD [facility]-19540 Level 3 Est. Patient 13:20:02 VICE PRESIDENT TAX Yolande Lindsay MD [facility]-40357 Level 3 Est. Patient 15:00:38 CDT Jared Og MD [facility]-33803 Level 3 Est. Patient 10:22:32 CDT Yolande Lindsay MD [facility]-38316 Level 3 Est. Patient 17:12:58 CDT Yolande Lindsay MD [facility]-50448 Level 4 Est. Patient 13:30:58 CDT Yolande Lindsay MD [facility] CPT-66498 Level 4 New Patient 09:02:42 CDT Jared Og MD [facility]-09492 Level 3 Est. Patient 08:19:07 CDT Yolande Lindsay MD [facility]-75798 Level 3 Est. Patient 12:00:13 VICE PRESIDENT TAX Gab Padron MD [facility]-06376 Level 3 Est. Patient 16:15:23 VICE PRESIDENT TAX Yolande Lindsay MD [facility]83564 Level 2 Est. Patient 19:47:15 CDT Yolande Lindsay MD [facility]93722 Level 3 Est. Patient 21:38:31 CDT Yolande Lindsay MD [facility]26318 Level 3 Est. Patient 10:25:12 CDT Adiel PERAZA [facility]-14161 Level 4 Est. Patient 10:51:58 CDT Yolande Lindsay MD [facility]-39845 Level 3 Est. Patient 14:04:55 VICE PRESIDENT TAX Rodrigo Sarah [facility]-20091 Level 3 Est. Patient 10:46:35 VICE PRESIDENT TAX Rodrigo Sarah [facility]-13375 Level 3 Est. Patient 14:24:37 VICE PRESIDENT TAX Yolande Lindsay MD [facility]-91838 Level 3 Est. Patient 17:41:58 VICE PRESIDENT TAX Yolande Lindsay MD [facility]-83772 Level 2 Est. Patient 22:01:41 VICE PRESIDENT TAX Rodrigo Sarah [facility]-63837 Level 2 Est. Patient 22:01:11 VICE PRESIDENT TAX Rodrigo Sarah [facility]-97356 Level 3 Est. Patient 10:12:29 VICE PRESIDENT TAX Jillina Frazell HOT BRAIDER [facility] CPT-90681 Level 3 Est. Patient 11:05:44 CDT Alexis Ordaz MD [facility] CPT-02484 Level 3 Est. Patient 14:57:20 CDT Yolande Lindsay MD [facility] CPT-08806 Level 3 Est. Patient 14:40:57 CDT Yolande Lindsay MD [facility] CPT-47363 Level 3 Est. Patient 20:55:40 CDT Yolande Lindsay MD [facility] CPT-29164 Level 3 Est. Patient 12:42:38 VICE PRESIDENT TAX Yolande Lindsay MD [facility] CPT-81225 Level 3 Est. Patient 11:54:49 VICE PRESIDENT TAX Des Hines MD [facility] CPT-15432 Level 3 Est. Patient 17:06:38 CDT Dewayne PERAZA [facility] Procedures Code Procedure Name Date Entry Date Standard Description CPT-23687 LS spine comp w obliq 13:28:00 VICE PRESIDENT TAX CPT-J1040 Depo Medrol 80 mg (Methyl Prednisolone Acetate) 10:51: 28 VICE PRESIDENT TAX CPT-J1100 Decadron 8mg (Dexamethasone) 10:51:28 VICE PRESIDENT TAX CPT-21789 Abx/Therapy Injection 10:51:28 VICE PRESIDENT TAX CPT-J1100 Decadron 8mg (Dexamethasone) 21:02:30 VICE PRESIDENT TAX CPT-J1040 Depo Medrol 80 mg (Methyl Prednisolone Acetate) 21:02: 30 VICE PRESIDENT TAX [id number] Event Monitor - MC Transmission 09:12:32 CDT 08/06 [id number] Event Monitor - MC review and interp 09:12:32 CDT [id number] Event Monitor - MC recording 09:12:32 CDT CPT-75214 EKG Trac and Interp 16:50:22 CDT CPT-J1030 Depo Medrol 40 mg (Methyl Prednisolone Acetate) 17:05: 54 CDT CPT-J1100 Decadron 4mg (Dexamethasone) 17:05:54 CDT CPT-80112 Abx/Therapy Injection 17:05:54 CDT CPT-J1100 Decadron 4mg (Dexamethasone) 16:55:28 CDT CPT-J1030 Depo Medrol 40 mg (Methyl Prednisolone Acetate) 16:55: 28 CDT CPT-09325 Ankle Complete - Min 3V 15:58:50 CDT CPT-17790 Knee 3V 15:58:50 CDT CPT-32857 Hip comp min 2V 15:58:50 CDT CPT-J2270 Morphine Sulfate 10 mg 14:25:44 VICE PRESIDENT TAX CPT-J2550 Phenergan 12.5 mg (Promethazine) 14:25:44 VICE PRESIDENT TAX CPT-01208 Abx/Therapy Injection 14:25:44 VICE PRESIDENT TAX CPT-J2550 Phenergan 12.5 mg (Promethazine) 14:08:03 VICE PRESIDENT TAX CPT-J2270 Morphine Sulfate 10 mg 14:08:03 VICE PRESIDENT TAX CPT-19320 Bladder Scan 15:00:38 CDT CPT-TCMM Transitional Care Mgmt-Moderate 09:52:22 CDT CPT-J1030 Depo Medrol 40 mg (Methyl Prednisolone Acetate) 10:55: 18 CDT CPT-J1100 Decadron 4mg (Dexamethasone) 10:55:18 CDT CPT-55121 Abx/Therapy Injection 10:55:18 CDT CPT-J1030 Depo Medrol 40 mg (Methyl Prednisolone Acetate) 10:22: 32 CDT CPT-J1100 Decadron 4mg (Dexamethasone) 10:22:32 CDT CPT-02259 Postop F/U Visit 14:37:13 CDT CPT-01694 Ankle Complete - Min 3V 17:11:58 CDT CPT-50358 Foot comp min 3V 17:11:58 CDT CPT-05482 Bladder Scan 09:56:58 CDT CPT-33754 Postop F/U Visit 09:56:58 CDT CPT-11829 Cystoscopy 09:02:42 CDT CPT-45706 Bladder Scan 09:02:42 CDT CPT-71309 Abd single AP View 16:00:35 CDT CPT-31743 Administration single or combination vaccine inc oral 10 :15:43 CDT CPT-01059 Influenza split virus > age 3 10:15:43 CDT CPT-91555 Nail Avulsion 09:24:57 CDT CPT-OV Office Visit 11:15:41 CDT CPT-48411 Abx/Therapy Injection 10:51:30 CDT CPT-J3301 Kenalog 40 mg (Triamcinolone Acetonide) 10:25:12 CDT CPT-J1100 Decadron 4mg (Dexamethasone) 10:25:12 CDT CPT-80975 Anoscopy diagnostic 10:36:12 CDT CPT-OV Office Visit 15:34:31 CDT CPT-90662 Abx/Therapy Injection 08:21:15 VICE PRESIDENT TAX CPT-J1885 Toradol 60 mg (Ketorolac) 10:46:35 VICE PRESIDENT TAX CPT-OV Office Visit 19:51:16 VICE PRESIDENT TAX CPT-75666 Spec Collection and Handling Fee 14:34:18 VICE PRESIDENT TAX CPT-PV Prev. Care Visit 14:19:18 VICE PRESIDENT TAX CPT-33411 Postop F/U Visit 14:47:51 VICE PRESIDENT TAX CPT-10595 Postop F/U Visit 15:15:14 VICE PRESIDENT TAX CPT-49700 Postop F/U Visit 14:41:43 CDT CPT-42106 Postop F/U Visit 15:47:46 CDT CPT-OV Office Visit 15:27:23 CDT CPT-OV Office Visit 17:20:34 CDT CPT-27373 Abx/Therapy Injection 15:05:57 CDT CPT-J1100 Decadron 8mg (Dexamethasone) 14:44:57 CDT CPT-J1040 Depo Medrol 80 mg (Methyl Prednisolone Acetate) 14:44: 57 CDT CPT-JTINJ Joint Injection 10:17:37 CDT CPT-88164 Administration 2+ single or combination vaccines inc oral 13:01:46 VICE PRESIDENT TAX CPT-72593 Administration single or combination vaccine inc oral 13 :01:46 VICE PRESIDENT TAX CPT-18321 Pneumovax 13:01:46 VICE PRESIDENT TAX CPT-27615 Influenza split virus > age 3 13:01:46 VICE PRESIDENT TAX CPT-83146 Administration single or combination vaccine inc oral 08 :56:49 CDT CPT-29438 Tdap 08:56:49 CDT
--- OUTSIDE RECORDS SUMMARY | 2017-03-21 23:20 | XMS REPORT | Clinical Summary ---
Author Author Admin, E Organization [facility] Address Unknown Phone Unavailable Allergies, Adverse Reactions, Alerts Allergy Name Reaction Description Start Date Severity Status Provider VALENTIN Critical Active Rodrigo Fracharlottel [employer] CHLORHEXIDINE GLUCONATE tongue and gums swollen Critical Active Hoadante Otto RMA NORFLEX Rash Critical Active Silvestrellina Frazell [employer] TRAZODONE HCL sees things Critical Active Dewayne [...] PhD Abdominal pain, LLQ ICD-789.04 Inactive Yolande iLndsay MD PhD Accidental fall ICD-E888.9 Inactive Yolande [...] then one daily for three days PREDNISONE 16844932039 Active Gab Padron MD Active TRIAMCINOLONE ACETONIDE 0.1 % CREA apply bid sparingly to rash TRIAMCINOLONE ACETONIDE 52929629185 No Longer Active Gab Padron MD Active TRAMADOL HCL 50 MG TABS 1 tab po every 6 hrs prn pain TRAMADOL HCL 27404654569 No Longer Active Gab Padron MD Active BACTRIM DS 800-160 MG TAB 1 tab by mouth twice daily TRIMETHOPRIM-SULFAMETHOXAZOLE 53158213317 No Longer Active Tisha Lambert [employer] Active ADVAIR DISKUS 250-50 MCG/DOSE AEPB 1 puff BID FLUTICASONE-SALMETEROL 54576229051 No Longer Active Todd Callaway MD Active ONDANSETRON 4 MG TBDP 1 q4h PRN nausea ONDANSETRON 11929044536 No Longer Active LONNIE Iglesias Active FISH OIL 1000 MG CAPS 3 pills daily OMEGA-3 FATTY ACIDS 72641366802 No Longer Active LONNIE Iglesias Active CETIRIZINE HCL 10 MG ORAL TABS 1 po qd PRN Allergies CETIRIZINE HCL 00991464891 Active Gab Padron MD Active CLARITIN 10 MG TAB 1 tablet by mouth daily as needed for allergies LORATADINE 87857473133 No Longer Active Gab Padron MD Active PREDNISONE 20 MG TAB take 3 tabs daily for 3 days, 2 tabs daily for 3 days, 1 tab daily for 3 days, 1/2 tab daily for 3 days PREDNISONE 80987619672 No Longer Active Tisha Lambert APRN Active PREDNISONE 20 MG TAB 2 tabs daily for 3 days, 1 tab daily for 3 days, 1/2 tab daily for 2 days PREDNISONE 06725007079 No Longer Active Gab Padron MD Active ZOFRAN ODT 4 MG TBDP 1 po q6hr PRN Nausea ONDANSETRON 64462033946 Active Gab Padron MD Active IBUPROFEN 600 MG TAB 1 tablet by mouth every 6 hours for 7 days, then 1 tablet every 6 hours as needed. Take with food IBUPROFEN 89569959904 Active Rodrigo Sarah APRN Active BACTRIM DS 800-160 MG TAB 1 tab by mouth twice daily TRIMETHOPRIM-SULFAMETHOXAZOLE 88790764330 No Longer Active Gab Padron MD Active LEVOTHYROXINE SODIUM 75 MCG TABS Take 1 tab daily LEVOTHYROXINE SODIUM 07620787361 No Longer Active Mariana HICKEYA Active SYNTHROID 88 MCG ORAL TABS Take one by mouth daily LEVOTHYROXINE SODIUM 02206672077 Active Gab Padron MD Active CHERATUSSIN AC 100-10 MG/5ML SYRP 1 tsp by mouth every 4 hours as needed for cough GUAIFENESIN-CODEINE 30506573817 No Longer Active Gab Padron MD Active POLYTRIM 03593-9.1 UNIT/ML-% SOLN 1 gtt to affected eye q3h x 7 days POLYMYXIN B-TRIMETHOPRIM 40838240808 No Longer Active Gab Pdaron MD Active FLUTICASONE PROPIONATE 50 MCG/ACT SUSP 1 to 2 sprays each nostril daily 04/21 FLUTICASONE PROPIONATE 96162482192 No Longer Active Gab Padron MD Active TRILEPTAL 600 MG TABS Take one 1 tablet in Am and 1 tablet at night OXCARBAZEPINE 66560353927 Active Gab Padron MD Active CEFDINIR 300 MG CAPS 1 po BID x 10 days CEFDINIR 25901416438 No Longer Active Rodrigo Sarah APRN Active CEFTIN 500 MG TAB 1 twice a day CEFUROXIME AXETIL 76948945439 No Longer Active Gab Padron MD Active AZITHROMYCIN 250 MG TABS 2 po qd x 1 day, then 1 po qd x 4 days AZITHROMYCIN 30956304173 No Longer Active Rodrigo Sarah APRN Active OXYCODONE HCL 5 MG ORAL CAPS 1 TAB PO Q HS OXYCODONE HCL 84480807275 No Longer Active Rodrigo Sarah APRN Active NIASPAN 500 MG ORAL CR-TABS 1 pill nightly x 1 week, then 2 pills nightly x 1 week, then 3 pills nightly x 1 week, then 4 pills nightly NIACIN (ANTIHYPERLIPIDEMIC) 54835141564 No Longer Active Rodrigo Sarah APRN Active NIACIN 500 MG TABS 1 pill by mouth nightly x 1 week, then 2 pills x 1 week, then 3 pills x 1 week, then 4 pills nightly - take after evening meal, with applesauce or an apple NIACIN 21386660905 No Longer Active Yolande Lindsay MD PhD Active FUROSEMIDE 20 MG TAB 1 tablet by mouth daily FUROSEMIDE 19958741734 Active Gab Padron MD Active LISINOPRIL 20 MG ORAL TABS 1 tab by mouth daily LISINOPRIL 22968010215 Active Gab Padron MD Active FUROSEMIDE 20 MG TABS 1 pill by mouth daily, for edema FUROSEMIDE 11075851186 No Longer Active Yolande Lindsay MD PhD Active ATORVASTATIN CALCIUM 10 MG TABS 1 pill by mouth daily, for cholesterol 09/06 ATORVASTATIN CALCIUM 56007274664 Active Gab Padron MD Active CALCIUM 600+D PLUS MINERALS 600-400 MG-UNIT ORAL CHEW 1 tab by mouth daily CALCIUM CARBONATE-VIT D-MIN 04595247130 No Longer Active Yolande Lindsay MD PhD Active CYCLOBENZAPRINE HCL 10 MG TABS 1 tablet by mouth three times daily as needed for muscle spasm/pain CYCLOBENZAPRINE HCL 17812534600 Active Yolande Lindsay MD PhD Active ADULT ASPIRIN EC LOW STRENGTH 81 MG TBEC Take 1 tablet by mouth daily 2014 ASPIRIN 41717539275 No Longer Active Yolande Lindsay MD PhD Active ZOFRAN ODT 4 MG TBDP 1 pill dissolved by mouth every 4 hours if needed for nausea ONDANSETRON 58525657382 No Longer Active Yolande Lindsay MD PhD Active CEFTIN 500 MG TAB 1 twice a day CEFUROXIME AXETIL 43180749826 No Longer Active Yolande Lindsay MD PhD Active ALBUTEROL SULFATE 0.083 % NEBU SOLN one vial per nebulizer every 4-6 hours as needed ALBUTEROL SULFATE 88445062301 No Longer Active Alexis Ordaz MD Active DOXYCYCLINE HYCLATE 100 MG CAP 1 cap by mouth twice daily DOXYCYCLINE HYCLATE 18354086830 No Longer Active Yolande Lindsay MD PhD Active CYCLOBENZAPRINE HCL 10 MG TABS 1/2 - 1 tab by mouth three times daily if needed for spasms/pain CYCLOBENZAPRINE HCL 65047686643 No Longer Active Yolande Lindsay MD PhD Active AZITHROMYCIN 250 MG TABS 2 pills on day 1, then 1 pill daily x 4 days AZITHROMYCIN 81121472844 No Longer Active Yolande Lindsay MD PhD Active XOPENEX 1.25 MG/3ML NEBU 1 neb every 4 hours if needed for cough/congestion LEVALBUTEROL HCL 53764606435 No Longer Active Yolande Lindsay MD PhD Active DOXYCYCLINE HYCLATE 100 MG TAB 1 tab twice a day for 14 days 2013 DOXYCYCLINE HYCLATE 87926160251 No Longer Active Yolande Lindsay MD PhD Active PREVACID 30 MG CPDR Take 1 tablet by mouth daily-PRN LANSOPRAZOLE 43519683644 No Longer Active Yolande Lindsay MD PhD Active PA VITAMIN D-3 2000 UNIT CAPS 1 CAP PO DAILY CHOLECALCIFEROL 51518751855 No Longer Active Yolande Lindsay MD PhD Active CEFDINIR 300 MG CAPS by mouth twice a day CEFDINIR 34786478072 No Longer Active Gab Padron MD Active TOPAMAX 50 MG TABS 1 PO twice daily TOPIRAMATE 58764062323 Active Yolande Lindsay MD PhD Active AZITHROMYCIN 250 MG TABS 2 po qd x 1 day, then 1 po qd x 4 days AZITHROMYCIN 77903873162 No Longer Active Yolande Lindsay MD PhD Active DICLOFENAC SODIUM 75 MG TBEC 1 tablet by q 12 hours PRN headaches DICLOFENAC SODIUM 12940287560 No Longer Active Yolande Lindsay MD PhD Active FLONASE 50 MCG/ACT SUSP 1 spray each nostril am and hs FLUTICASONE PROPIONATE 28198495411 No Longer Active Todd Callaway MD Active ANUSOL-HC 25 MG SUPPOSITORY 1 rectally twice a day as needed for hemorrhoids HYDROCORTISONE JAYDEN (RECTAL) 62450328115 No Longer Active Yolande Lindsay MD PhD Active ANUSOL-HC 25 MG SUPPOSITORY 1 suppository rectally each evening as needed for anal fissure HYDROCORTISONE JAYDEN (RECTAL) 63149351699 No Longer Active LONNIE Iglesias Active VALIUM 5 MG TAB 1 po 30 minutes prior to your MRI DIAZEPAM 40225386164 No Longer Active LONNIE Iglesias Active METHOCARBAMOL 750 MG TABS 1 PO QID PRN METHOCARBAMOL 67516561214 No Longer Active Daphne Wetzel APRN Active NITROSTAT 0.4 MG SUBL as directed NITROGLYCERIN 75238448663 No Longer Active Jillina Frazell [employer] Active ROBAXIN-750 750 MG TABS 2 four times a day for 3 days as needed for muscle spasm, then 1 four times a day as needed METHOCARBAMOL 97777649680 No Longer Active Silvestrellnacho Sarah APRN Active HYDROCODONE-ACETAMINOPHEN 5-325 MG TABS 1 q 4-6 hrs prn HYDROCODONE-ACETAMINOPHEN 79866375610 No Longer Active Silvestrellnacho Sarah APRN Active VERAPAMIL HCL CR 180 MG CR-TABS TAKE 1 TAB DAILY VERAPAMIL HCL 78926208046 No Longer Active Yolande Lindsay MD PhD Active BACTRIM DS 800-160 MG TAB 1 tab by mouth twice daily TRIMETHOPRIM-SULFAMETHOXAZOLE 37315606740 No Longer Active Yolande Lindsay MD PhD Active NEXIUM 40 MG PACK 1 by mouth daily ESOMEPRAZOLE MAGNESIUM 91659049279 No Longer Active Des Hines MD Active EPIPEN 2-CHARLETTE 0.3 MG/0.3ML OMARI as need for allergic reaction EPINEPHRINE 82247977257 Active Yolande Lindsay MD PhD Active NEXIUM 40 MG CPDR 1 PO Q D DAY ESOMEPRAZOLE MAGNESIUM 46521391102 No Longer Active Sadia Perry RN Active NEXIUM 40 MG PACK 1 by mouth daily NEXIUM 40 MG PACK ESOMEPRAZOLE MAGNESIUM Inactive VERAPAMIL HCL CR 180 MG CR-TABS TAKE 1 TAB DAILY VERAPAMIL HCL CR 180 MG CR-TABS VERAPAMIL HCL Inactive HYDROCODONE-ACETAMINOPHEN 5-325 MG TABS 1 q 4-6 hrs prn HYDROCODONE-ACETAMINOPHEN 5-325 MG TABS 256909 HYDROCODONE-ACETAMINOPHEN Inactive ROBAXIN-750 750 MG TABS 2 four times a day for 3 days as needed for muscle spasm, then 1 four times a day as needed ROBAXIN-750 750 MG TABS 509612 METHOCARBAMOL Inactive NITROSTAT 0.4 MG SUBL as directed NITROSTAT 0.4 MG SUBL 682255 NITROGLYCERIN Inactive METHOCARBAMOL 750 MG TABS 1 PO QID PRN METHOCARBAMOL 750 MG TABS 970293 METHOCARBAMOL Inactive VALIUM 5 MG TAB 1 po 30 minutes prior to your MRI VALIUM 5 MG TAB 806053 DIAZEPAM Inactive ANUSOL-HC 25 MG SUPPOSITORY 1 suppository rectally each evening as needed for anal fissure ANUSOL-HC 25 MG SUPPOSITORY 2818846 HYDROCORTISONE JAYDEN (RECTAL) Inactive ANUSOL-HC 25 MG SUPPOSITORY 1 rectally twice a day as needed for hemorrhoids ANUSOL-HC 25 MG SUPPOSITORY 0117726 HYDROCORTISONE JAYDEN (RECTAL) Inactive FLONASE 50 MCG/ACT SUSP 1 spray each nostril am and hs FLONASE 50 MCG/ACT SUSP 5788820 FLUTICASONE PROPIONATE Inactive DICLOFENAC SODIUM 75 MG TBEC 1 tablet by q 12 hours PRN headaches DICLOFENAC SODIUM 75 MG TBEC 310751 DICLOFENAC SODIUM Inactive PA VITAMIN D-3 2000 UNIT CAPS 1 CAP PO DAILY PA VITAMIN D-3 2000 UNIT CAPS CHOLECALCIFEROL Inactive PREVACID 30 MG CPDR Take 1 tablet by mouth daily-PRN PREVACID 30 MG CPDR 259757 LANSOPRAZOLE Inactive DOXYCYCLINE HYCLATE 100 MG TAB 1 tab twice a day for 14 days 2013 DOXYCYCLINE HYCLATE 100 MG TAB 8880526 DOXYCYCLINE HYCLATE Inactive XOPENEX 1.25 MG/3ML NEBU 1 neb every 4 hours if needed for cough/congestion XOPENEX 1.25 MG/3ML NEBU 967705 LEVALBUTEROL HCL Inactive CYCLOBENZAPRINE HCL 10 MG TABS 1/2 - 1 tab by mouth three times daily if needed for spasms/pain CYCLOBENZAPRINE HCL 10 MG TABS 082391 CYCLOBENZAPRINE HCL Inactive ALBUTEROL SULFATE 0.083 % NEBU SOLN one vial per nebulizer every 4-6 hours as needed ALBUTEROL SULFATE 0.083 % NEBU SOLN 662666 ALBUTEROL SULFATE Inactive CEFTIN 500 MG TAB 1 twice a day CEFTIN 500 MG TAB 786240 CEFUROXIME AXETIL Inactive ZOFRAN ODT 4 MG TBDP 1 pill dissolved by mouth every 4 hours if needed for nausea ZOFRAN ODT 4 MG TBDP 566864 ONDANSETRON Inactive ADULT ASPIRIN EC LOW STRENGTH 81 MG TBEC Take 1 tablet by mouth daily 2014 ADULT ASPIRIN EC LOW STRENGTH 81 MG TBEC 662843 ASPIRIN Inactive CALCIUM 600+D PLUS MINERALS 600-400 [...] or an apple NIACIN 500 MG TABS 281623 NIACIN Inactive NIASPAN 500 MG ORAL CR-TABS 1 pill nightly x 1 week, then 2 pills nightly x 1 week, then 3 pills nightly x 1 week, then 4 pills nightly NIASPAN 500 MG ORAL CR-TABS NIACIN (ANTIHYPERLIPIDEMIC) Inactive OXYCODONE HCL 5 MG ORAL CAPS 1 TAB PO Q HS OXYCODONE HCL 5 MG ORAL CAPS 5727284 OXYCODONE HCL Inactive FLUTICASONE PROPIONATE 50 MCG/ACT SUSP 1 to 2 sprays each nostril daily 04/21 FLUTICASONE PROPIONATE 50 MCG/ACT SUSP 6054857 FLUTICASONE PROPIONATE Inactive POLYTRIM 16339-5.1 UNIT/ML-% SOLN 1 gtt to affected eye q3h x 7 days POLYTRIM 36739-5.1 UNIT/ML-% SOLN 627213 POLYMYXIN B- TRIMETHOPRIM Inactive CHERATUSSIN AC 100-10 MG/5ML SYRP 1 tsp by mouth every 4 hours as needed for cough CHERATUSSIN AC 100-10 MG/5ML SYRP 227260 GUAIFENESIN-CODEINE Inactive LEVOTHYROXINE SODIUM 75 MCG TABS Take 1 tab daily LEVOTHYROXINE SODIUM 75 MCG TABS 148724 LEVOTHYROXINE SODIUM Inactive CLARITIN 10 MG TAB 1 tablet by mouth daily as needed for allergies CLARITIN 10 MG TAB 116262 LORATADINE Inactive FISH OIL 1000 MG CAPS 3 pills daily FISH OIL 1000 MG CAPS OMEGA-3 FATTY ACIDS Inactive ONDANSETRON 4 MG TBDP 1 q4h PRN nausea ONDANSETRON 4 MG TBDP 782958 ONDANSETRON Inactive ADVAIR DISKUS 250-50 MCG/DOSE AEPB 1 puff BID ADVAIR DISKUS 250-50 MCG/DOSE AEPB FLUTICASONE-SALMETEROL Inactive TRAMADOL HCL 50 MG TABS 1 tab po every 6 hrs prn pain TRAMADOL HCL 50 MG TABS 980728 TRAMADOL HCL Inactive TRIAMCINOLONE ACETONIDE 0.1 % CREA apply bid sparingly to rash TRIAMCINOLONE ACETONIDE 0.1 % CREA 0062465 TRIAMCINOLONE ACETONIDE Inactive BACTRIM DS 800-160 MG TAB 1 tab by mouth twice daily BACTRIM DS 800-160 MG TAB 028239 TRIMETHOPRIM-SULFAMETHOXAZOLE Inactive AZITHROMYCIN 250 MG TABS 2 po qd x 1 day, then 1 po qd x 4 days AZITHROMYCIN 250 MG TABS 6058173 AZITHROMYCIN Inactive CEFDINIR 300 MG CAPS by mouth twice a day CEFDINIR 300 MG CAPS 102269 CEFDINIR Inactive AZITHROMYCIN 250 MG TABS 2 pills on day 1, then 1 pill daily x 4 days AZITHROMYCIN 250 MG TABS 8042897 AZITHROMYCIN Inactive DOXYCYCLINE HYCLATE 100 MG CAP 1 cap by mouth twice daily DOXYCYCLINE HYCLATE 100 MG CAP 4056165 DOXYCYCLINE HYCLATE Inactive FUROSEMIDE 20 MG TABS 1 pill by mouth daily, for edema FUROSEMIDE 20 MG TABS 593989 FUROSEMIDE Inactive AZITHROMYCIN 250 MG TABS 2 po qd x 1 day, then 1 po qd x 4 days AZITHROMYCIN 250 MG TABS 7613487 AZITHROMYCIN Inactive CEFTIN 500 MG TAB 1 twice a day CEFTIN 500 MG TAB 874872 CEFUROXIME AXETIL Inactive CEFDINIR 300 MG CAPS 1 po BID x 10 days CEFDINIR 300 MG CAPS 267956 CEFDINIR Inactive BACTRIM DS 800-160 MG TAB 1 tab by mouth twice daily BACTRIM DS 800-160 MG TAB 086223 TRIMETHOPRIM-SULFAMETHOXAZOLE Inactive PREDNISONE 20 MG TAB 2 tabs daily for 3 days, 1 tab daily for 3 days, 1/2 tab daily for 2 days PREDNISONE 20 MG TAB 489142 PREDNISONE Inactive PREDNISONE 20 MG TAB take 3 tabs daily for 3 days, 2 tabs daily for 3 days, 1 tab daily for 3 days, 1/2 tab daily for 3 days PREDNISONE 20 MG TAB 824627 PREDNISONE Inactive BACTRIM DS 800-160 MG TAB 1 tab by mouth twice daily BACTRIM DS 800-160 MG TAB 19820606 TRIMETHOPRIM-SULFAMETHOXAZOLE Inactive Immunizations Vaccine Administration Date Value Standard Description Seasonal influenza vaccine, injectable, containing preservative, for > 3 years old (Afluria, FluLaval, Fluzone, Fluvirin, Fluarix, Agriflu(>=18 yo)) Fluzone (>3 yrs.) [PWC086] Influenza, seasonal, injectable influenza immunization (Flu Vax) has been administered Influenza - Unspecified Formulation [CVX88] influenza virus vaccine, unspecified formulation Seasonal influenza vaccine, injectable, containing preservative, for > 3 years old (Afluria, FluLaval, Fluzone, Fluvirin, Fluarix, Agriflu(>=18 yo)) Fluzone (>3 yrs.) [RDM995] Influenza, seasonal, injectable pneumococcal immunization administered Pneumovax 23 [CVX33] pneumococcal polysaccharide vaccine, 23 valent dT (Diphtheria and Tetanus) booster given given Td(adult) unspecified formulation Boostrix (Tetanus toxoid, reduced diphtheria toxoid and acellular pertussis vaccine, adsorbed), booster Boostrix [ZHA095] tetanus toxoid, reduced diphtheria toxoid, and acellular [...] PANEL - Chemistry cholesterol, serum 166 mg/dL 440-011 0791/12/06 triglyceride, serum, fasting 86 mg/dL 30-200 HDL [...] negative Encounters Code Encounter Date Provider Facility CPT-12408 Level 3 Est. Patient 14:50:29 CDT Gab Padron MD [facility] CPT-90022 Level 3 Est. Patient 14:46:09 CDT Tisha Lambert APRN [facility] CPT-35717 Level 4 New Patient 16:13:15 CDT Todd Callaway MD [facility] CPT-26153 Level 4 Est. Patient 13:18:33 CDT Gab Padron MD [facility] CPT-74979 Level 3 Est. Patient 15:20:50 CDT Jared Og MD [facility] CPT-84801 Level 3 Est. Patient 17:43:55 [employer] Gab Padron MD [facility] CPT-03109 Level 3 Est. Patient 17:07:49 [employer] Jared Og MD [facility] CPT-99407 Level 4 Est. Patient 19:55:18 [employer] Jared Og MD [facility] CPT-62225 Level 3 Est. Patient 20:13:34 [employer] Jared Og MD [facility] CPT-33498 Level 4 Est. Patient 16:31:27 CDT Gab Padron MD [facility] CPT-66972 Level 2 Est. Patient 12:23:38 CDT Jared Og MD [facility] CPT-31268 Level 3 Est. Patient 11:01:51 CDT Gab Padron MD [facility] CPT-65719 Level 3 Est. Patient 15:27:02 CDT Jared Og MD [facility] CPT-82534 Level 4 Est. Patient 09:25:27 CDT Gab Padron MD [facility] CPT-34710 Level 3 Est. Patient 10:29:41 CDT Rodrigo Sarah [facility] CPT-35865 Level 4 Est. Patient 17:51:05 CDT Gab Padron MD [facility] CPT-41640 Level 3 Est. Patient 14:18:08 CDT Gab Padron MD [facility] CPT-03970 Level 4 Est. Patient 10:18:54 CDT Gab Padron MD [facility] CPT-92656 Level 3 Est. Patient 11:30:07 CDT Rodrigo Sarah [facility] CPT-86790 Level 4 Est. Patient 21:02:30 [employer] Gab Padron MD [facility]-44250 Level 3 Est. Patient 11:02:19 [employer] Gab Padron MD [facility] [place]-75056 Level 4 Est. Patient 22:24:31 [employer] Gab Padron MD [facility] [place]-10337 Level 3 Est. Patient 18:33:46 [employer] Gab Padron MD [facility] [place]-32653 Level 3 Est. Patient 16:19:11 CDT Yolande Lindsay MD [facility]-81633 Level 3 Est. Patient 18:59:14 CDT Yolande Lindsay MD [facility]-45852 Level 4 Est. Patient 21:29:26 CDT Yolande Lindsay MD [facility]-00737 Level 3 Est. Patient 07:37:45 CDT Yolande Lindsay MD [facility]-99953 Level 3 Est. Patient 17:03:46 CDT Yolande Lindsay MD [facility]-78526 Level 4 Est. Patient 20:02:13 [employer] Yolande Lindsay MD [facility]-99598 Level 3 Est. Patient 16:02:07 [employer] Alexis Ordaz MD [facility] [place]-35912 Level 3 Est. Patient 12:41:24 [employer] Yolande Lindsay MD [facility]-79332 Level 3 Est. Patient 15:41:20 [employer] Yolande Lindsay MD PhD [facility] [place]-66311 Level 3 Est. Patient 13:20:02 [employer] Yolande Lindsay MD [facility]-58463 Level 3 Est. Patient 15:00:38 CDT Jared Og MD [facility]-20423 Level 3 Est. Patient 10:22:32 CDT Yolande Lindsay MD [facility] CPT-88450 Level 3 Est. Patient 17:12:58 CDT Yolande Lindsay MD [facility]-50525 Level 4 Est. Patient 13:30:58 CDT Yolande Lindsay MD [facility] CPT-07613 Level 4 New Patient 09:02:42 CDT Jared Og MD [facility]-70753 Level 3 Est. Patient 08:19:07 CDT Yolande Lindsay MD [facility]-25387 Level 3 Est. Patient 12:00:13 [employer] Gab Padron MD [facility] [place]-31582 Level 3 Est. Patient 16:15:23 [employer] Yolande Lindsay MD [facility]-31554 Level 2 Est. Patient 19:47:15 CDT Yolande Lindsay MD [facility] CPT-10206 Level 3 Est. Patient 21:38:31 CDT Yolande Lindsay MD [facility]-48552 Level 3 Est. Patient 10:25:12 CDT Adiel PERAZA [facility] CPT-97089 Level 4 Est. Patient 10:51:58 CDT Yolande Lindsay MD [facility]-94676 Level 3 Est. Patient 14:04:55 [employer] Rodrigo Sarah [facility] CPT-60448 Level 3 Est. Patient 10:46:35 [employer] Rodrigo Sarah [facility]-71053 Level 3 Est. Patient 14:24:37 [employer] Yolande Lindsay MD [facility]-35707 Level 3 Est. Patient 17:41:58 [employer] Yolande Lindsay MD [facility] CPT-72312 Level 2 Est. Patient 22:01:41 [employer] Rodrigo Sarah [facility] CPT-54730 Level 2 Est. Patient 22:01:11 [employer] Rodrigo Sarah [facility] CPT-87008 Level 3 Est. Patient 10:12:29 [employer] Rodrigo Sarah [facility] CPT-10334 Level 3 Est. Patient 11:05:44 CDT Alexis Ordaz MD [facility] CPT-45907 Level 3 Est. Patient 14:57:20 CDT Yolande Lindsay MD [facility]-23106 Level 3 Est. Patient 14:40:57 CDT Yolande Lindsay MD [facility]-31890 Level 3 Est. Patient 20:55:40 CDT Yolande Lindsay MD [facility] CPT-49388 Level 3 Est. Patient 12:42:38 [employer] Yolande Lindsay MD [facility]-69162 Level 3 Est. Patient 11:54:49 [employer] Des Hines MD [facility] CPT-62411 Level 3 Est. Patient 17:06:38 CDT Dewayne PERAZA [facility] Procedures Code Procedure Name Date Entry Date Standard Description CPT-J2930 Solu Medrol 125 mg (Methyl Prednisolone Sodium Succinate) 13:19:02 CDT CPT-24096 Abx/Therapy Injection 13:19:02 CDT CPT-J2930 Solu Medrol 125 mg (Methyl Prednisolone Sodium Succinate) 13:05:03 CDT CPT-34868 Hip, complete, 2-3 views - XRAY USE ONLY 17:19:04 [employer] CPT-18373 Venipuncture Draw Fee 08:37:59 [employer] CPT-46077 Liver Profile - LAB USE ONLY 08:37:59 [employer] CPT-68892 Lipid - LAB USE ONLY 08:37:58 [employer] CPT-91983 First Vx - Ix admin via ID IM or jet injects without counseling by physician 11:52:31 CDT CPT-39500 Fluzone Preservative Free Intramuscular Suspension 11:52 :31 CDT CPT-07895 Foot, left, comp min 3V - XRAY USE ONLY 09:24:54 CDT CPT-54213 Abd single AP View - XRAY USE ONLY 11:16:17 CDT CPT-95849 T spine AP/ Lat - XRAY USE ONLY 09:34:21 CDT CPT-75438 Chest 2V Frontal and Lat - XRAY USE ONLY 10:48:51 CDT CPT-85657 LS spine comp w obliq 13:28:00 [employer] CPT-J1040 Depo Medrol 80 mg (Methyl Prednisolone Acetate) 10:51: 28 [employer] CPT-J1100 Decadron 8mg (Dexamethasone) 10:51:28 [employer] CPT-34835 Abx/Therapy Injection 10:51:28 [employer] CPT-J1100 Decadron 8mg (Dexamethasone) 21:02:30 [employer] CPT-J1040 Depo Medrol 80 mg (Methyl Prednisolone Acetate) 21:02: 30 [employer]LET [employer] [id number] Event Monitor - MC Transmission 09:12:32 CDT 08/06 [id number] Event Monitor - MC review and interp 09:12:32 CDT [id number] Event Monitor - MC recording 09:12:32 CDT CPT-84469 EKG Trac and Interp 16:50:22 CDT CPT-J1030 Depo Medrol 40 mg (Methyl Prednisolone Acetate) 17:05: 54 CDT CPT-J1100 Decadron 4mg (Dexamethasone) 17:05:54 CDT CPT-98117 Abx/Therapy Injection 17:05:54 CDT CPT-J1100 Decadron 4mg (Dexamethasone) 16:55:28 CDT CPT-J1030 Depo Medrol 40 mg (Methyl Prednisolone Acetate) 16:55: 28 CDT CPT-30595 Ankle Complete - Min 3V 15:58:50 CDT CPT-31234 Knee 3V 15:58:50 CDT CPT-53828 Hip comp min 2V 15:58:50 CDT CPT-J2270 Morphine Sulfate 10 mg 14:25:44 [employer] CPT-J2550 Phenergan 12.5 mg (Promethazine) 14:25:44 [employer] CPT-14493 Abx/Therapy Injection 14:25:44 [employer] CPT-J2550 Phenergan 12.5 mg (Promethazine) 14:08:03 [employer] CPT-J2270 Morphine Sulfate 10 mg 14:08:03 [employer] CPT-57227 Bladder Scan 15:00:38 CDT CPT-TCMM Transitional Care Mgmt-Moderate 09:52:22 CDT CPT-J1030 Depo Medrol 40 mg (Methyl Prednisolone Acetate) 10:55: 18 CDT CPT-J1100 Decadron 4mg (Dexamethasone) 10:55:18 CDT CPT-86361 Abx/Therapy Injection 10:55:18 CDT CPT-J1030 Depo Medrol 40 mg (Methyl Prednisolone Acetate) 10:22: 32 CDT CPT-J1100 Decadron 4mg (Dexamethasone) 10:22:32 CDT CPT-75030 Postop F/U Visit 14:37:13 CDT CPT-36088 Ankle Complete - Min 3V 17:11:58 CDT CPT-30858 Foot comp min 3V 17:11:58 CDT CPT-60297 Bladder Scan 09:56:58 CDT CPT-08633 Postop F/U Visit 09:56:58 CDT CPT-48221 Cystoscopy 09:02:42 CDT CPT-88266 Bladder Scan 09:02:42 CDT CPT-20782 Abd single AP View 16:00:35 CDT CPT-50577 Administration single or combination vaccine inc oral 10 :15:43 CDT CPT-72743 Influenza split virus > age 3 10:15:43 CDT CPT-40271 Nail Avulsion 09:24:57 CDT CPT-OV Office Visit 11:15:41 CDT CPT-41738 Abx/Therapy Injection 10:51:30 CDT CPT-J3301 Kenalog 40 mg (Triamcinolone Acetonide) 10:25:12 CDT CPT-J1100 Decadron 4mg (Dexamethasone) 10:25:12 CDT CPT-97352 Anoscopy diagnostic 10:36:12 CDT CPT-OV Office Visit 15:34:31 CDT CPT-69447 Abx/Therapy Injection 08:21:15 [employer] CPT-J1885 Toradol 60 mg (Ketorolac) 10:46:35 [employer] CPT-OV Office Visit 19:51:16 [employer] CPT-47411 Spec Collection and Handling Fee 14:34:18 [employer] CPT-PV Prev. Care Visit 14:19:18 [employer] CPT-47927 Postop F/U Visit 14:47:51 [employer] CPT-58742 Postop F/U Visit 15:15:14 [employer] CPT-78372 Postop F/U Visit 14:41:43 CDT CPT-04123 Postop F/U Visit 15:47:46 CDT CPT-OV Office Visit 15:27:23 CDT CPT-OV Office Visit 17:20:34 CDT CPT-93313 Abx/Therapy Injection 15:05:57 CDT CPT-J1100 Decadron 8mg (Dexamethasone) 14:44:57 CDT CPT-J1040 Depo Medrol 80 mg (Methyl Prednisolone Acetate) 14:44: 57 CDT CPT-JTINJ Joint Injection 10:17:37 CDT CPT-21733 Administration 2+ single or combination vaccines inc oral 13:01:46 [employer] CPT-95538 Administration single or combination vaccine inc oral 13 :01:46 [employer] CPT-41280 Pneumovax 13:01:46 [employer] CPT-15780 Influenza split virus > age 3 13:01:46 [employer] CPT-06095 Administration single or combination vaccine inc oral 08 :56:49 CDT CPT-66107 Tdap 08:56:49 CDT
--- OUTSIDE RECORDS SUMMARY | 2017-03-21 23:22 | XMS REPORT | Clinical Summary ---
Author Author Admin, MARGRET Organization [facility] Address Unknown Phone Unavailable Allergies, Adverse Reactions, Alerts Allergy Name Reaction Description Start Date Severity Status Provider VALENTIN Critical Active Rodrigo Montemayorl [employer] CHLORHEXIDINE GLUCONATE tongue and gums swollen Critical Active Ho[facility] Clarita [facility]FLEX Rash Critical Active Silvestrellina Frazell [employer] TRAZODONE HCL sees things Critical Active Dewayne [...] infarction, hx of 412 Active [facility] Otto [facility] Old myocardial infarction Pelvic pain 789.09 Active Yolande Lindsay MD PhD Abdominal pain, other specified site; multiple sites Edema 782.3 Active Yolande Lindsay MD PhD Edema Rash 782.1 Active Yolande Lindsay MD PhD Rash and other nonspecific skin eruption Back pain, lumbar 724.2 Active Gab Padron MD Lumbago Cough 786.2 Active Jillina Tyrel [employer] Cough 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 Jillina Frazellilian [employer] 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 Anemia 285.9 Active Gab Padron MD Anemia, unspecified Conjunctivitis 372.30 Active Jillina Tyrel [employer] Conjunctivitis, unspecified Sinusitis 473.9 Active Jillina Frazell [employer] Unspecified sinusitis (chronic) FOOT PAIN, RIGHT ICD-729.5 [...] PhD 07/16 RECTAL BLEEDING ICD-569.3 Inactive Yolande Lindsya MD PhD INGROWN TOENAIL ICD-703.0 Inactive Yolande [...] MD PhD 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 Inactive Yolande Lindsya MD PhD Muscle spasm, back ICD-724.8 Inactive [...] TABS Take 1 tab daily LEVOTHYROXINE SODIUM 10859821553 No Longer Active Mariana FLEMING Active SYNTHROID 88 MCG ORAL TABS Take one by mouth daily LEVOTHYROXINE SODIUM 70946371256 Active Mariana FLEMING Active CHERATUSSIN AC 100-10 MG/5ML SYRP 1 tsp by mouth every 4 hours as needed for cough GUAIFENESIN-CODEINE 10951880570 No Longer Active Gab Padron MD Active POLYTRIM 82529-6.1 UNIT/ML-% SOLN 1 gtt to affected eye q3h x 7 days POLYMYXIN B-TRIMETHOPRIM 43722485100 No Longer Active Gab Padron MD Active FLUTICASONE PROPIONATE 50 MCG/ACT SUSP 1 to 2 sprays each nostril daily 04/21 FLUTICASONE PROPIONATE 25817363949 No Longer Active Gab Padron MD Active TRILEPTAL 600 MG TABS Take one 1 tablet in Am and 1 tablet at night OXCARBAZEPINE 98191810707 Active Gab Padron MD Active CEFDINIR 300 MG CAPS 1 po BID x 10 days CEFDINIR 03797918777 No Longer Active Rodrigo Sarah APRN Active CEFTIN 500 MG TAB 1 twice a day CEFUROXIME AXETIL 74570319995 No Longer Active Gab Padron MD Active AZITHROMYCIN 250 MG TABS 2 po qd x 1 day, then 1 po qd x 4 days AZITHROMYCIN 87585415309 No Longer Active Rodrigo Sarah APRN Active CLARITIN 10 MG TAB 1 tablet by mouth daily as needed for allergies LORATADINE 81341537964 Active Rodrigo Sarah APRN Active OXYCODONE HCL 5 MG ORAL CAPS 1 TAB PO Q HS OXYCODONE HCL 32170470209 No Longer Active Rodrigo Sarah APRN Active NIASPAN 500 MG ORAL CR-TABS 1 pill nightly x 1 week, then 2 pills nightly x 1 week, then 3 pills nightly x 1 week, then 4 pills nightly NIACIN (ANTIHYPERLIPIDEMIC) 91427658422 No Longer Active Rodrigo Sarah APRN Active NIACIN 500 MG TABS 1 pill by mouth nightly x 1 week, then 2 pills x 1 week, then 3 pills x 1 week, then 4 pills nightly - take after evening meal, with applesauce or an apple NIACIN 60576994097 No Longer Active Yolande Lindsay MD PhD Active FISH OIL 1000 MG CAPS 3 pills daily OMEGA-3 FATTY ACIDS 11373249270 Active Yolande Lindsay MD PhD Active TRIAMCINOLONE ACETONIDE 0.1 % CREA apply bid sparingly to rash TRIAMCINOLONE ACETONIDE 40554655791 Active Yolande Lindsay MD PhD Active FUROSEMIDE 20 MG TAB 1 tablet by mouth daily FUROSEMIDE 98379726270 Active Yolande Lindsay MD PhD Active LISINOPRIL 20 MG ORAL TABS 1 tab by mouth daily LISINOPRIL 46108411866 Active Gab Padron MD Active FUROSEMIDE 20 MG TABS 1 pill by mouth daily, for edema FUROSEMIDE 97752255612 No Longer Active Yolande Lindsay MD PhD Active ATORVASTATIN CALCIUM 10 MG TABS 1 pill by mouth daily, for cholesterol 09/06 ATORVASTATIN CALCIUM 24587032506 Active Yolande Lindsay MD PhD Active CALCIUM 600+D PLUS MINERALS 600-400 MG-UNIT ORAL CHEW 1 tab by mouth daily CALCIUM CARBONATE-VIT D-MIN 37034157802 No Longer Active Yolande Lindsay MD PhD Active CYCLOBENZAPRINE HCL 10 MG TABS 1 tablet by mouth three times daily as needed for muscle spasm/pain CYCLOBENZAPRINE HCL 27388524107 Active Yolande Lindsay MD PhD Active ONDANSETRON 4 MG TBDP 1 q4h PRN nausea ONDANSETRON 33567510464 Active Yolande Lindsay MD PhD Active ADULT ASPIRIN EC LOW STRENGTH 81 MG TBEC Take 1 tablet by mouth daily 2014 ASPIRIN 25487649231 No Longer Active Yolande Lindsay MD PhD Active ZOFRAN ODT 4 MG TBDP 1 pill dissolved by mouth every 4 hours if needed for nausea ONDANSETRON 58116546282 No Longer Active Yolande Lindsay MD PhD Active CEFTIN 500 MG TAB 1 twice a day CEFUROXIME AXETIL 82107539395 No Longer Active Yolande Lindsay MD PhD Active ALBUTEROL SULFATE 0.083 % [facility] SOLN one vial per nebulizer every 4-6 hours as needed ALBUTEROL SULFATE 75569558990 No Longer Active Alexis Ordaz MD Active DOXYCYCLINE HYCLATE 100 MG CAP 1 cap by mouth twice daily DOXYCYCLINE HYCLATE 80809758013 No Longer Active Yolande Lindsay MD PhD Active CYCLOBENZAPRINE HCL 10 MG TABS 1/2 - 1 tab by mouth three times daily if needed for spasms/pain CYCLOBENZAPRINE HCL 81959710541 No Longer Active Yolande Lindsay MD PhD Active AZITHROMYCIN 250 MG TABS 2 pills on day 1, then 1 pill daily x 4 days AZITHROMYCIN 96735014621 No Longer Active Yolande Lindsay MD PhD Active XOPENEX 1.25 MG/3ML NEBU 1 neb every 4 hours if needed for cough/congestion LEVALBUTEROL HCL 00441851803 No Longer Active Yolande Lindsay MD PhD Active DOXYCYCLINE HYCLATE 100 MG TAB 1 tab twice a day for 14 days 2013 DOXYCYCLINE HYCLATE 53304958968 No Longer Active Yolande Lindsay MD PhD Active PREVACID 30 MG CPDR Take 1 tablet by mouth daily-PRN LANSOPRAZOLE 66531825771 No Longer Active Yolande Lindsay MD PhD Active PA VITAMIN D-3 2000 UNIT CAPS 1 CAP PO DAILY CHOLECALCIFEROL 08663784927 No Longer Active Yolande Lindsay MD PhD Active CEFDINIR 300 MG CAPS by mouth twice a day CEFDINIR 25432799713 No Longer Active Gab Padron MD Active TOPAMAX 50 MG TABS 1 PO twice daily TOPIRAMATE 45406499293 Active Yolande Lindsay MD PhD Active AZITHROMYCIN 250 MG TABS 2 po qd x 1 day, then 1 po qd x 4 days AZITHROMYCIN 25381268808 No Longer Active Yolande Lindsay MD PhD Active DICLOFENAC SODIUM 75 MG TBEC 1 tablet by q 12 hours PRN headaches DICLOFENAC SODIUM 25983864830 No Longer Active Yolande Lindsay MD PhD Active FLONASE 50 MCG/ACT SUSP 1 spray each nostril am and hs FLUTICASONE PROPIONATE 83388851197 No Longer Active Todd Callaway MD Active ANUSOL-HC 25 MG SUPPOSITORY 1 rectally twice a day as needed for hemorrhoids HYDROCORTISONE JAYDEN (RECTAL) 21440799896 No Longer Active Yolande Lindsay MD PhD Active ANUSOL-HC 25 MG SUPPOSITORY 1 suppository rectally each evening as needed for anal fissure HYDROCORTISONE JAYDEN (RECTAL) 85572882579 No Longer Active Bozena JaredEDELMIRAFeliciano Active VALIUM 5 MG TAB 1 po 30 minutes prior to your MRI DIAZEPAM 67918708284 No Longer Active LONNIE Iglesias Active METHOCARBAMOL 750 MG TABS 1 PO QID PRN METHOCARBAMOL 74767994024 No Longer Active Daphne Wetzel [employer] Active NITROSTAT 0.4 MG SUBL as directed NITROGLYCERIN 37354052397 No Longer Active Rodrigo Sarah [employer] Active ROBAXIN-750 750 MG TABS 2 four times a day for 3 days as needed for muscle spasm, then 1 four times a day as needed METHOCARBAMOL 95907695738 No Longer Active Rodrigo Sarah APRN Active HYDROCODONE-ACETAMINOPHEN 5-325 MG TABS 1 q 4-6 hrs prn HYDROCODONE-ACETAMINOPHEN 97487632385 No Longer Active Silvestrellnacho Sarah APRN Active VERAPAMIL HCL CR 180 MG CR-TABS TAKE 1 TAB DAILY VERAPAMIL HCL 50319705292 No Longer Active Yolande Lindsay MD PhD Active BACTRIM DS 800-160 MG TAB 1 tab by mouth twice daily TRIMETHOPRIM-SULFAMETHOXAZOLE 30018927288 No Longer Active Yolande Lindsay MD PhD Active NEXIUM 40 MG PACK 1 by mouth daily ESOMEPRAZOLE MAGNESIUM 97188379156 No Longer Active Des Hines MD Active EPIPEN 2-CHARLETTE 0.3 MG/0.3ML OMARI as need for allergic reaction EPINEPHRINE 87078000019 Active Yolande Lindsay MD PhD Active NEXIUM 40 MG CPDR 1 PO Q D DAY ESOMEPRAZOLE MAGNESIUM 37561883742 No Longer Active Sadia Perry RN Active NEXIUM 40 MG PACK 1 by mouth daily NEXIUM 40 MG PACK ESOMEPRAZOLE MAGNESIUM Inactive VERAPAMIL HCL CR 180 MG CR-TABS TAKE 1 TAB DAILY VERAPAMIL HCL CR 180 MG CR-TABS VERAPAMIL HCL Inactive HYDROCODONE-ACETAMINOPHEN 5-325 MG TABS 1 q 4-6 hrs prn HYDROCODONE-ACETAMINOPHEN 5-325 MG TABS 011496 HYDROCODONE-ACETAMINOPHEN Inactive ROBAXIN-750 750 MG TABS 2 four times a day for 3 days as needed for muscle spasm, then 1 four times a day as needed ROBAXIN-750 750 MG TABS 976437 METHOCARBAMOL Inactive NITROSTAT 0.4 MG SUBL as directed NITROSTAT 0.4 MG SUBL NITROGLYCERIN Inactive METHOCARBAMOL 750 MG TABS 1 PO QID PRN METHOCARBAMOL 750 MG TABS 387170 METHOCARBAMOL Inactive VALIUM 5 MG TAB 1 po 30 minutes prior to your MRI VALIUM 5 MG TAB 018320 DIAZEPAM Inactive ANUSOL-HC 25 MG SUPPOSITORY 1 suppository rectally each evening as needed for anal fissure ANUSOL-HC 25 MG SUPPOSITORY 4784478 HYDROCORTISONE JAYDEN (RECTAL) Inactive ANUSOL-HC 25 MG SUPPOSITORY 1 rectally twice a day as needed for hemorrhoids ANUSOL-HC 25 MG SUPPOSITORY 9478449 HYDROCORTISONE JAYDEN (RECTAL) Inactive FLONASE 50 MCG/ACT SUSP 1 spray each nostril am and hs FLONASE 50 MCG/ACT SUSP FLUTICASONE PROPIONATE Inactive DICLOFENAC SODIUM 75 MG TBEC 1 tablet by q 12 hours PRN headaches DICLOFENAC SODIUM 75 MG TBEC 886046 DICLOFENAC SODIUM Inactive PA VITAMIN D-3 2000 UNIT CAPS 1 CAP PO DAILY PA VITAMIN D-3 2000 UNIT CAPS CHOLECALCIFEROL Inactive PREVACID 30 MG CPDR Take 1 tablet by mouth daily-PRN PREVACID 30 MG CPDR 924813 LANSOPRAZOLE Inactive DOXYCYCLINE HYCLATE 100 MG TAB 1 tab twice a day for 14 days 2013 DOXYCYCLINE HYCLATE 100 MG TAB 5082335 DOXYCYCLINE HYCLATE Inactive XOPENEX 1.25 MG/3ML NEBU 1 neb every 4 hours if needed for cough/congestion XOPENEX 1.25 MG/3ML NEBU 696169 LEVALBUTEROL HCL Inactive CYCLOBENZAPRINE HCL 10 MG TABS 1/2 - 1 tab by mouth three times daily if needed for spasms/pain CYCLOBENZAPRINE HCL 10 MG TABS 584264 CYCLOBENZAPRINE HCL Inactive ALBUTEROL SULFATE 0.083 % NEBU SOLN one vial per nebulizer every 4-6 hours as needed ALBUTEROL SULFATE 0.083 % NEBU SOLN 612943 ALBUTEROL SULFATE Inactive CEFTIN 500 MG TAB 1 twice a day CEFTIN 500 MG TAB 542835 CEFUROXIME AXETIL Inactive ZOFRAN ODT 4 MG TBDP 1 pill dissolved by mouth every 4 hours if needed for nausea ZOFRAN ODT 4 MG TBDP 512088 ONDANSETRON Inactive ADULT ASPIRIN EC LOW STRENGTH 81 MG TBEC Take 1 tablet by mouth daily 2014 ADULT ASPIRIN EC LOW STRENGTH 81 MG TBEC 377041 ASPIRIN Inactive CALCIUM 600+D PLUS MINERALS 600-400 [...] or an apple NIACIN 500 MG TABS 273644 NIACIN Inactive NIASPAN 500 MG ORAL CR-TABS 1 pill nightly x 1 week, then 2 pills nightly x 1 week, then 3 pills nightly x 1 week, then 4 pills nightly NIASPAN 500 MG ORAL CR-TABS NIACIN (ANTIHYPERLIPIDEMIC) Inactive OXYCODONE HCL 5 MG ORAL CAPS 1 TAB PO Q HS OXYCODONE HCL 5 MG ORAL CAPS 2002908 OXYCODONE HCL Inactive FLUTICASONE PROPIONATE 50 MCG/ACT SUSP 1 to 2 sprays each nostril daily 04/21 FLUTICASONE PROPIONATE 50 MCG/ACT SUSP 189668 FLUTICASONE PROPIONATE Inactive POLYTRIM 16705-1.1 UNIT/ML-% SOLN 1 gtt to affected eye q3h x 7 days POLYTRIM 43213-0.1 UNIT/ML-% SOLN 199541 POLYMYXIN B- TRIMETHOPRIM Inactive CHERATUSSIN AC 100-10 MG/5ML SYRP 1 tsp by mouth every 4 hours as needed for cough CHERATUSSIN AC 100-10 MG/5ML SYRP 913409 GUAIFENESIN-CODEINE Inactive LEVOTHYROXINE SODIUM 75 MCG TABS Take 1 tab daily LEVOTHYROXINE SODIUM 75 MCG TABS 404118 LEVOTHYROXINE SODIUM Inactive BACTRIM DS 800-160 MG TAB 1 tab by mouth twice daily BACTRIM DS 800-160 MG TAB 958578 TRIMETHOPRIM-SULFAMETHOXAZOLE Inactive AZITHROMYCIN 250 MG TABS 2 po qd x 1 day, then 1 po qd x 4 days AZITHROMYCIN 250 MG TABS 6405898 AZITHROMYCIN Inactive CEFDINIR 300 MG CAPS by mouth twice a day CEFDINIR 300 MG CAPS 638494 CEFDINIR Inactive AZITHROMYCIN 250 MG TABS 2 pills on day 1, then 1 pill daily x 4 days AZITHROMYCIN 250 MG TABS 9953001 AZITHROMYCIN Inactive DOXYCYCLINE HYCLATE 100 MG CAP 1 cap by mouth twice daily DOXYCYCLINE HYCLATE 100 MG CAP 2627433 DOXYCYCLINE HYCLATE Inactive FUROSEMIDE 20 MG TABS 1 pill by mouth daily, for edema FUROSEMIDE 20 MG TABS 648912 FUROSEMIDE Inactive AZITHROMYCIN 250 MG TABS 2 po qd x 1 day, then 1 po qd x 4 days AZITHROMYCIN 250 MG TABS 9626897 AZITHROMYCIN Inactive CEFTIN 500 MG TAB 1 twice a day CEFTIN 500 MG TAB 406564 CEFUROXIME AXETIL Inactive CEFDINIR 300 MG CAPS 1 po BID x 10 days CEFDINIR 300 MG CAPS 827129 CEFDINIR Inactive Immunizations Vaccine Administration Date Value Standard Description Seasonal influenza vaccine, injectable, containing preservative, for > 3 years old (Afluria, FluLaval, Fluzone, Fluvirin, Fluarix, Agriflu(>=18 yo)) Fluzone (>3 yrs.) [MFU615] Influenza, seasonal, injectable influenza immunization (Flu Vax) has been administered Influenza - Unspecified Formulation [CVX88] influenza virus vaccine, unspecified formulation Seasonal influenza vaccine, injectable, containing preservative, for > 3 years old (Afluria, FluLaval, Fluzone, Fluvirin, Fluarix, Agriflu(>=18 yo)) Fluzone (>3 yrs.) [EHE673] Influenza, seasonal, injectable pneumococcal immunization administered Pneumovax 23 [CVX33] pneumococcal polysaccharide vaccine, 23 valent dT (Diphtheria and Tetanus) booster given given Td(adult) unspecified formulation Boostrix (Tetanus toxoid, reduced diphtheria toxoid and acellular pertussis vaccine, adsorbed), booster Boostrix [FIQ623] tetanus toxoid, reduced diphtheria toxoid, and acellular [...] Panel - Chemistry sodium, serum 145 mmol/L 647-019 2296/06/22 potassium, serum 3.9 mmol/L 3.5-5.2 chloride, serum 109 mmol/L 98-107 carbon dioxide, venous blood 23.4 mmol/L 21.0-32.0 blood glucose 92 mg/dL 65-110 calcium, serum 8.2 mg/dL 8.5-10.1 urea nitrogen, blood 24 mg/dL 7-18 creatinine, serum 1.30 mg/dL 0.60-1.30 Lab Report: [facility] Advanced Lipid and Inlammation Panel /41749 - Chemistry cholesterol, serum 198 mg/dL 951-263 9296/04/30 HDL cholesterol, serum 65 mg/dL > OR=46 triglyceride, serum, fasting 82 mg/dL LDL cholesterol, serum 117 mg/dL cholesterol/HDL ratio, serum 3.0 calc < OR=5.0 cholesterol, serum 148 mg/dL 286-404 0088/09/02 HDL cholesterol, serum 55 mg/dL > OR=46 [...] (L) - Chemistry sodium, serum 145 mmol/L 793-129 7623/09/02 potassium, serum 4.6 mmol/L 3.5-5.2 chloride, serum [...] 51 mg/dL 30-200 cholesterol, serum 173 mg/dL 578-655 3096/04/28 HDL cholesterol, serum 63 mg/dL 32-96 LDL [...] mg/dL Encounters Code Encounter Date Provider Facility CPT-06563 Level 4 Est. Patient 21:02:30 LUNG GUN OPERATOR Gab Padron MD [facility]-13752 Level 3 Est. Patient 11:02:19 LUNG GUN OPERATOR Gab Padron MD [facility]-05686 Level 4 Est. Patient 22:24:31 LUNG GUN OPERATOR Gab Padron MD [facility]-45489 Level 3 Est. Patient 18:33:46 LUNG GUN OPERATOR Gab Padron MD [facility]-32270 Level 3 Est. Patient 16:19:11 CDT Yolande Lindsay MD [facility]-08261 Level 3 Est. Patient 18:59:14 CDT Yolande Lindsay MD [facility]-09314 Level 4 Est. Patient 21:29:26 CDT Yolande Lindsay MD [facility]-15895 Level 3 Est. Patient 07:37:45 CDT Yoalnde Lindsay MD [facility]-18551 Level 3 Est. Patient 17:03:46 CDT Yolande Lindsay MD [facility]-81039 Level 4 Est. Patient 20:02:13 LUNG GUN OPERATOR Yolande Lindsay MD [facility]-70934 Level 3 Est. Patient 16:02:07 LUNG GUN OPERATOR Alexis Ordaz MD [facility]-20679 Level 3 Est. Patient 12:41:24 LUNG GUN OPERATOR Yolande Lindsay MD [facility]-87940 Level 3 Est. Patient 15:41:20 LUNG GUN OPERATOR Yolande Lindsay MD [facility]-00183 Level 3 Est. Patient 13:20:02 LUNG GUN OPERATOR Yolande Lindsay MD [facility]-15162 Level 3 Est. Patient 15:00:38 CDT Jared Og MD [facility]-56791 Level 3 Est. Patient 10:22:32 CDT Yolande Lindsay MD [facility] CPT-08754 Level 3 Est. Patient 17:12:58 CDT Yolande Lindsay MD [facility]-62568 Level 4 Est. Patient 13:30:58 CDT Yolande Lindsay MD [facility]-95553 Level 4 New Patient 09:02:42 CDT Jared Og MD [facility]-43955 Level 3 Est. Patient 08:19:07 CDT Yolande Lindsay MD [facility]-43370 Level 3 Est. Patient 12:00:13 LUNG GUN OPERATOR Gab Padron MD [facility]-87825 Level 3 Est. Patient 16:15:23 LUNG GUN OPERATOR Yolande Lindsay MD [facility]-11060 Level 2 Est. Patient 19:47:15 CDT Yolande Lindsay MD [facility]-54054 Level 3 Est. Patient 21:38:31 CDT Yolande Lindsay MD [facility]-40316 Level 3 Est. Patient 10:25:12 CDT Adiel PERAZA [facility] CPT-47552 Level 4 Est. Patient 10:51:58 CDT Yolande Lindsay MD [facility]-35032 Level 3 Est. Patient 14:04:55 LUNG GUN OPERATOR Rodrigo Sarah [facility]-83593 Level 3 Est. Patient 10:46:35 LUNG GUN OPERATOR Rodrigo Sarah [facility]-59425 Level 3 Est. Patient 14:24:37 LUNG GUN OPERATOR Yolande Lindsay MD [facility]-29093 Level 3 Est. Patient 17:41:58 LUNG GUN OPERATOR Yolande Lindsay MD PhD [facility] CPT-62468 Level 2 Est. Patient 22:01:41 LUNG GUN OPERATOR Rodrigo Sarah [facility] CPT-26987 Level 2 Est. Patient 22:01:11 LUNG GUN OPERATOR Rodrigo Sarah [facility] CPT-96260 Level 3 Est. Patient 10:12:29 LUNG GUN OPERATOR Rodrigo Sarah [facility] CPT-97280 Level 3 Est. Patient 11:05:44 CDT Alexis Ordaz MD [facility]-65511 Level 3 Est. Patient 14:57:20 CDT Yolande Lindsay MD [facility]-15225 Level 3 Est. Patient 14:40:57 CDT Yolande Lindsay MD [facility]-29636 Level 3 Est. Patient 20:55:40 CDT Yolande Lindsay MD [facility]-05747 Level 3 Est. Patient 12:42:38 LUNG GUN OPERATOR Yolande Lindsay MD [facility]-76593 Level 3 Est. Patient 11:54:49 LUNG GUN OPERATOR Des Hines MD [facility]-10938 Level 3 Est. Patient 17:06:38 CDT Dewayne PERAZA [facility] Procedures Code Procedure Name Date Entry Date Standard Description CPT-36453 LS spine comp w obliq 13:28:00 LUNG GUN OPERATOR CPT-J1040 Depo Medrol 80 mg (Methyl Prednisolone Acetate) 10:51: 28 LUNG GUN OPERATOR CPT-J1100 Decadron 8mg (Dexamethasone) 10:51:28 LUNG GUN OPERATOR CPT-76844 Abx/Therapy Injection 10:51:28 LUNG GUN OPERATOR CPT-J1100 Decadron 8mg (Dexamethasone) 21:02:30 LUNG GUN OPERATOR CPT-J1040 Depo Medrol 80 mg (Methyl Prednisolone Acetate) 21:02: 30 LUNG GUN OPERATOR [id number] Event Monitor - MC Transmission 09:12:32 CDT 08/06 [id number] Event Monitor - MC review and interp 09:12:32 CDT [id number] Event Monitor - MC recording 09:12:32 CDT CPT-62636 EKG Trac and Interp 16:50:22 CDT CPT-J1030 Depo Medrol 40 mg (Methyl Prednisolone Acetate) 17:05: 54 CDT CPT-J1100 Decadron 4mg (Dexamethasone) 17:05:54 CDT CPT-89641 Abx/Therapy Injection 17:05:54 CDT CPT-J1100 Decadron 4mg (Dexamethasone) 16:55:28 CDT CPT-J1030 Depo Medrol 40 mg (Methyl Prednisolone Acetate) 16:55: 28 CDT CPT-68948 Ankle Complete - Min 3V 15:58:50 CDT CPT-12364 Knee 3V 15:58:50 CDT CPT-45023 Hip comp min 2V 15:58:50 CDT CPT-J2270 Morphine Sulfate 10 mg 14:25:44 LUNG GUN OPERATOR CPT-J2550 Phenergan 12.5 mg (Promethazine) 14:25:44 LUNG GUN OPERATOR CPT-01247 Abx/Therapy Injection 14:25:44 LUNG GUN OPERATOR CPT-J2550 Phenergan 12.5 mg (Promethazine) 14:08:03 LUNG GUN OPERATOR CPT-J2270 Morphine Sulfate 10 mg 14:08:03 LUNG GUN OPERATOR CPT-50727 Bladder Scan 15:00:38 CDT CPT-TCMM Transitional Care Mgmt-Moderate 09:52:22 CDT CPT-J1030 Depo Medrol 40 mg (Methyl Prednisolone Acetate) 10:55: 18 CDT CPT-J1100 Decadron 4mg (Dexamethasone) 10:55:18 CDT CPT-36118 Abx/Therapy Injection 10:55:18 CDT CPT-J1030 Depo Medrol 40 mg (Methyl Prednisolone Acetate) 10:22: 32 CDT CPT-J1100 Decadron 4mg (Dexamethasone) 10:22:32 CDT CPT-38066 Postop F/U Visit 14:37:13 CDT CPT-80377 Ankle Complete - Min 3V 17:11:58 CDT CPT-33674 Foot comp min 3V 17:11:58 CDT CPT-91339 Bladder Scan 09:56:58 CDT CPT-28795 Postop F/U Visit 09:56:58 CDT CPT-44266 Cystoscopy 09:02:42 CDT CPT-37051 Bladder Scan 09:02:42 CDT CPT-93244 Abd single AP View 16:00:35 CDT CPT-09903 Administration single or combination vaccine inc oral 10 :15:43 CDT CPT-28538 Influenza split virus > age 3 10:15:43 CDT CPT-14047 Nail Avulsion 09:24:57 CDT CPT-OV Office Visit 11:15:41 CDT CPT-40273 Abx/Therapy Injection 10:51:30 CDT CPT-J3301 Kenalog 40 mg (Triamcinolone Acetonide) 10:25:12 CDT CPT-J1100 Decadron 4mg (Dexamethasone) 10:25:12 CDT CPT-10348 Anoscopy diagnostic 10:36:12 CDT CPT-OV Office Visit 15:34:31 CDT CPT-61661 Abx/Therapy Injection 08:21:15 LUNG GUN OPERATOR CPT-J1885 Toradol 60 mg (Ketorolac) 10:46:35 LUNG GUN OPERATOR CPT-OV Office Visit 19:51:16 LUNG GUN OPERATOR CPT-09724 Spec Collection and Handling Fee 14:34:18 LUNG GUN OPERATOR CPT-PV Prev. Care Visit 14:19:18 LUNG GUN OPERATOR CPT-23581 Postop F/U Visit 14:47:51 LUNG GUN OPERATOR CPT-02547 Postop F/U Visit 15:15:14 LUNG GUN OPERATOR CPT-52644 Postop F/U Visit 14:41:43 CDT CPT-94100 Postop F/U Visit 15:47:46 CDT CPT-OV Office Visit 15:27:23 CDT CPT-OV Office Visit 17:20:34 CDT CPT-77599 Abx/Therapy Injection 15:05:57 CDT CPT-J1100 Decadron 8mg (Dexamethasone) 14:44:57 CDT CPT-J1040 Depo Medrol 80 mg (Methyl Prednisolone Acetate) 14:44: 57 CDT CPT-JTINJ Joint Injection 10:17:37 CDT CPT-31791 Administration 2+ single or combination vaccines inc oral 13:01:46 LUNG GUN OPERATOR CPT-33154 Administration single or combination vaccine inc oral 13 :01:46 LUNG GUN OPERATOR CPT-53996 Pneumovax 13:01:46 LUNG GUN OPERATOR CPT-55621 Influenza split virus > age 3 13:01:46 LUNG GUN OPERATOR CPT-02110 Administration single or combination vaccine inc oral 08 :56:49 CDT CPT-00254 Tdap 08:56:49 CDT
--- OUTSIDE RECORDS SUMMARY | 2017-03-21 23:24 | XMS REPORT | Clinical Summary ---
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 TRAZODONE HCL sees things Critical Active [...] PhD GERD ICD-530.81 Inactive Todd Callaway MD KNEE PAIN ICD-719.46 Inactive Yolande Lindsay MD PhD ROUTINE GYNECOLOGICAL EXAMINATION ICD-V72.31 Inactive Yolande Lindsay MD PhD LONG-TERM (CURRENT) [...] DERMATITIS ICD-692.6 Inactive Yolande Lindsay MD PhD FISSURE, ANAL ICD-565.0 Inactive Yolande Lindsay MD PhD GERD ICD-530.81 [...] ANGIOEDEMA ICD-995.1 Inactive Yolande Lindsay MD PhD 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 Inactive Yolande Lindsay MD PhD URI ICD-465.9 Inactive Yolande Lindsay MD PhD MUSCLE PAIN ICD-729.1 Inactive Yolande Lindsay MD PhD Flank pain [...] pill by mouth daily, for edema FUROSEMIDE 06297941996 No Longer Active Yolande Lindsay MD PhD Active FISH OIL 1000 MG CAPS 1 pill daily x 1 week, then 2 pills daily x 1 week, then 3 pills daily x 1 week, then 4 pills daily OMEGA-3 FATTY ACIDS 05224969750 Active Yolande Lindsay MD PhD Active NIACIN 500 MG TABS 1 pill by mouth nightly x 1 week, then 2 pills x 1 week, then 3 pills x 1 week, then 4 pills nightly - take after evening meal, with applesauce or an apple NIACIN 35752782413 Active Yolande Lindsay MD PhD Active ATORVASTATIN CALCIUM 10 MG TABS 1 pill by mouth daily, for cholesterol 09/06 ATORVASTATIN CALCIUM 87227724090 Active Yolande Lindsay MD PhD Active CALCIUM 600+D PLUS MINERALS 600-400 MG-UNIT ORAL CHEW 1 tab by mouth daily CALCIUM CARBONATE-VIT D-MIN 39020025897 No Longer Active Yolande Lindsay MD PhD Active CYCLOBENZAPRINE HCL 10 MG TABS 1 tablet by mouth three times daily as needed for muscle spasm/pain CYCLOBENZAPRINE HCL 33590741960 Active Yolande Lindsay MD PhD Active ONDANSETRON 4 MG TBDP 1 q4h PRN nausea ONDANSETRON 75128447929 Active Yolande Lindsay MD PhD Active ADULT ASPIRIN EC LOW STRENGTH 81 MG TBEC Take 1 tablet by mouth daily 2014 ASPIRIN 52224311647 No Longer Active Yolande Lindsay MD PhD Active ZOFRAN ODT 4 MG TBDP 1 pill dissolved by mouth every 4 hours if needed for nausea ONDANSETRON 81636342889 No Longer Active Yolande Lindsay MD PhD Active CEFTIN 500 MG TAB 1 twice a day CEFUROXIME AXETIL 02727267732 No Longer Active Yolande Lindsay MD PhD Active ALBUTEROL SULFATE 0.083 % NEBU SOLN one vial per nebulizer every 4-6 hours as needed ALBUTEROL SULFATE 25555585960 No Longer Active Alexis Ordaz MD Active DOXYCYCLINE HYCLATE 100 MG CAP 1 cap by mouth twice daily DOXYCYCLINE HYCLATE 25132983932 No Longer Active Yolande Lindsay MD PhD Active CYCLOBENZAPRINE HCL 10 MG TABS 1/2 - 1 tab by mouth three times daily if needed for spasms/pain CYCLOBENZAPRINE HCL 19222248728 No Longer Active Yolande Lindsay MD PhD Active TRILEPTAL 600 MG TABS Take one 1/2 tablet in Am and 1 tablet at night OXCARBAZEPINE 24176319783 Active Yolande Lindsay MD PhD Active AZITHROMYCIN 250 MG TABS 2 pills on day 1, then 1 pill daily x 4 days AZITHROMYCIN 87107954104 No Longer Active Yolande Lindsay MD PhD Active XOPENEX 1.25 MG/3ML NEBU 1 neb every 4 hours if needed for cough/congestion LEVALBUTEROL HCL 63103887923 No Longer Active Yolande Lindsay MD PhD Active DOXYCYCLINE HYCLATE 100 MG TAB 1 tab twice a day for 14 days 2013 DOXYCYCLINE HYCLATE 26896331134 No Longer Active Yolande Lindsay MD PhD Active LEVOTHYROXINE SODIUM 75 MCG TABS Take 1 tab daily LEVOTHYROXINE SODIUM 65300949474 Active Yolande Lindsay MD PhD Active PREVACID 30 MG CPDR Take 1 tablet by mouth daily-PRN LANSOPRAZOLE 28690025807 No Longer Active Yolande Lindsay MD PhD Active PA VITAMIN D-3 2000 UNIT CAPS 1 CAP PO DAILY CHOLECALCIFEROL 61378043542 No Longer Active Yolande Lindsay MD PhD Active CEFDINIR 300 MG CAPS by mouth twice a day CEFDINIR 21891997627 No Longer Active Gab Padron MD Active TOPAMAX 50 MG TABS 1 PO twice daily TOPIRAMATE 73266251306 Active Yolande Lindsay MD PhD Active AZITHROMYCIN 250 MG TABS 2 po qd x 1 day, then 1 po qd x 4 days AZITHROMYCIN 76873311252 No Longer Active Yolande Lindsay MD PhD Active DICLOFENAC SODIUM 75 MG TBEC 1 tablet by q 12 hours PRN headaches DICLOFENAC SODIUM 38532977064 No Longer Active Yolande Lindsay MD PhD Active FLONASE 50 MCG/ACT SUSP 1 spray each nostril am and hs FLUTICASONE PROPIONATE 37015323786 No Longer Active Todd Callaway MD Active ANUSOL-HC 25 MG SUPPOSITORY 1 rectally twice a day as needed for hemorrhoids HYDROCORTISONE JAYDEN (RECTAL) 91433931632 No Longer Active Yolande Lindsay MD PhD Active ANUSOL-HC 25 MG SUPPOSITORY 1 suppository rectally each evening as needed for anal fissure HYDROCORTISONE JAYDEN (RECTAL) 02607568537 No Longer Active LONNIE Iglesias Active VALIUM 5 MG TAB 1 po 30 minutes prior to your MRI DIAZEPAM 84721342850 No Longer Active LONNIE Iglesias Active METHOCARBAMOL 750 MG TABS 1 PO QID PRN METHOCARBAMOL 26765902577 No Longer Active Daphne Wetzel APRN Active NITROSTAT 0.4 MG SUBL as directed NITROGLYCERIN 73541456827 No Longer Active Rodrigo Sarah APRN Active ROBAXIN-750 750 MG TABS 2 four times a day for 3 days as needed for muscle spasm, then 1 four times a day as needed METHOCARBAMOL 15502811111 No Longer Active Rodrigo Sarah APRN Active HYDROCODONE-ACETAMINOPHEN 5-325 MG TABS 1 q 4-6 hrs prn HYDROCODONE-ACETAMINOPHEN 92949623410 No Longer Active Rodrigo Sarah APRN Active VERAPAMIL HCL CR 180 MG CR-TABS TAKE 1 TAB DAILY VERAPAMIL HCL 84602107507 No Longer Active Yolande Lindsay MD PhD Active BACTRIM DS 800-160 MG TAB 1 tab by mouth twice daily TRIMETHOPRIM-SULFAMETHOXAZOLE 74344890238 No Longer Active Yolande Lindsay MD PhD Active NEXIUM 40 MG PACK 1 by mouth daily ESOMEPRAZOLE MAGNESIUM 77167892262 No Longer Active Des Hines MD Active EPIPEN 2-CHARLETTE 0.3 MG/0.3ML OMARI as need for allergic reaction EPINEPHRINE 76131775494 Active Yolande Lindsay MD PhD Active LISINOPRIL 10 MG TABS 1 PO Q D FOR BP LISINOPRIL 72279714435 Active Yolande Lindsay MD PhD Active NEXIUM 40 MG CPDR 1 PO Q D DAY ESOMEPRAZOLE MAGNESIUM 15111797313 No Longer Active Sadia Perry MIGUEL Active NEXIUM 40 MG PACK 1 by mouth daily NEXIUM 40 MG PACK ESOMEPRAZOLE MAGNESIUM Inactive VERAPAMIL HCL CR 180 MG CR-TABS TAKE 1 TAB DAILY VERAPAMIL HCL CR 180 MG CR-TABS VERAPAMIL HCL Inactive HYDROCODONE-ACETAMINOPHEN 5-325 MG TABS 1 q 4-6 hrs prn HYDROCODONE-ACETAMINOPHEN 5-325 MG TABS 275255 HYDROCODONE-ACETAMINOPHEN Inactive ROBAXIN-750 750 MG TABS 2 four times a day for 3 days as needed for muscle spasm, then 1 four times a day as needed ROBAXIN-750 750 MG TABS 844564 METHOCARBAMOL Inactive NITROSTAT 0.4 MG SUBL as directed NITROSTAT 0.4 MG SUBL NITROGLYCERIN Inactive METHOCARBAMOL 750 MG TABS 1 PO QID PRN METHOCARBAMOL 750 MG TABS 689308 METHOCARBAMOL Inactive VALIUM 5 MG TAB 1 po 30 minutes prior to your MRI VALIUM 5 MG TAB 403351 DIAZEPAM Inactive ANUSOL-HC 25 MG SUPPOSITORY 1 suppository rectally each evening as needed for anal fissure ANUSOL-HC 25 MG SUPPOSITORY 8017396 HYDROCORTISONE JAYDEN (RECTAL) Inactive ANUSOL-HC 25 MG SUPPOSITORY 1 rectally twice a day as needed for hemorrhoids ANUSOL-HC 25 MG SUPPOSITORY 7484628 HYDROCORTISONE JAYDEN (RECTAL) Inactive FLONASE 50 MCG/ACT SUSP 1 spray each nostril am and hs FLONASE 50 MCG/ACT SUSP 483722 FLUTICASONE PROPIONATE Inactive DICLOFENAC SODIUM 75 MG TBEC 1 tablet by q 12 hours PRN headaches DICLOFENAC SODIUM 75 MG TBEC 807949 DICLOFENAC SODIUM Inactive PA VITAMIN D-3 2000 UNIT CAPS 1 CAP PO DAILY PA VITAMIN D-3 2000 UNIT CAPS CHOLECALCIFEROL Inactive PREVACID 30 MG CPDR Take 1 tablet by mouth daily-PRN PREVACID 30 MG CPDR 451215 LANSOPRAZOLE Inactive DOXYCYCLINE HYCLATE 100 MG TAB 1 tab twice a day for 14 days 2013 DOXYCYCLINE HYCLATE 100 MG TAB 989015 DOXYCYCLINE HYCLATE Inactive XOPENEX 1.25 MG/3ML NEBU 1 neb every 4 hours if needed for cough/congestion XOPENEX 1.25 MG/3ML NEBU 797566 LEVALBUTEROL HCL Inactive CYCLOBENZAPRINE HCL 10 MG TABS 1/2 - 1 tab by mouth three times daily if needed for spasms/pain CYCLOBENZAPRINE HCL 10 MG TABS 939625 CYCLOBENZAPRINE HCL Inactive ALBUTEROL SULFATE 0.083 % NEBU SOLN one vial per nebulizer every 4-6 hours as needed ALBUTEROL SULFATE 0.083 % NEBU SOLN 483841 ALBUTEROL SULFATE Inactive CEFTIN 500 MG TAB 1 twice a day CEFTIN 500 MG TAB 111306 CEFUROXIME AXETIL Inactive ZOFRAN ODT 4 MG TBDP 1 pill dissolved by mouth every 4 hours if needed for nausea ZOFRAN ODT 4 MG TBDP 533782 ONDANSETRON Inactive ADULT ASPIRIN EC LOW STRENGTH 81 MG TBEC Take 1 tablet by mouth daily 2014 ADULT ASPIRIN EC LOW STRENGTH 81 MG TBEC 473692 ASPIRIN Inactive CALCIUM 600+D PLUS MINERALS 600-400 [...] x 4 days AZITHROMYCIN 250 MG TABS 4458107 AZITHROMYCIN Inactive CEFDINIR 300 MG CAPS by mouth twice a day CEFDINIR 300 MG CAPS 029553 CEFDINIR Inactive AZITHROMYCIN 250 MG TABS 2 pills on day 1, then 1 pill daily x 4 days AZITHROMYCIN 250 MG TABS 0940631 AZITHROMYCIN Inactive DOXYCYCLINE HYCLATE 100 MG CAP 1 cap by mouth twice daily DOXYCYCLINE HYCLATE 100 MG CAP 426993 DOXYCYCLINE HYCLATE Inactive FUROSEMIDE 20 MG TABS 1 pill by mouth daily, for edema FUROSEMIDE 20 MG TABS 459182 FUROSEMIDE Inactive Immunizations Vaccine Administration Date Value Standard Description Seasonal influenza vaccine, injectable, containing preservative, for > 3 years old (Afluria, FluLaval, Fluzone, Fluvirin, Fluarix, Agriflu(>=18 yo)) Fluzone (>3 yrs.) [QNG002] Influenza, seasonal, injectable influenza immunization (Flu Vax) has been administered Influenza - Unspecified Formulation [CVX88] influenza virus vaccine, unspecified formulation pneumococcal immunization administered Pneumovax 23 [CVX33] pneumococcal polysaccharide vaccine, 23 valent Seasonal influenza vaccine, injectable, containing preservative, for > 3 years old (Afluria, FluLaval, Fluzone, Fluvirin, Fluarix, Agriflu(>=18 yo)) Fluzone (>3 yrs.) [RIQ941] Influenza, seasonal, injectable dT (Diphtheria and Tetanus) booster given given Td(adult) unspecified formulation Boostrix (Tetanus toxoid, reduced diphtheria toxoid and acellular pertussis vaccine, adsorbed), booster Boostrix [PNC154] tetanus toxoid, reduced diphtheria toxoid, and acellular [...] Panel - Chemistry sodium, serum 145 mmol/L 405-812 4684/06/22 potassium, serum 3.9 mmol/L 3.5-5.2 chloride, serum 109 mmol/L 98-107 carbon dioxide, venous blood 23.4 mmol/L 21.0-32.0 blood glucose 92 mg/dL 65-110 calcium, serum 8.2 mg/dL 8.5-10.1 urea nitrogen, blood 24 mg/dL 7-18 creatinine, serum 1.30 mg/dL 0.60-1.30 Lab Report: [facility] Advanced Lipid and Inlammation Panel /15982 - Chemistry cholesterol, serum 198 mg/dL 139-928 5092/04/30 HDL cholesterol, serum 65 mg/dL > OR=46 triglyceride, serum, fasting 82 mg/dL LDL cholesterol, serum 117 mg/dL cholesterol/HDL ratio, serum 3.0 calc < OR=5.0 Lab Report: CBC W/DIFF, Basic Metabolic Panel - Chemistry sodium, serum 144 mmol/L 110-861 3846/01/21 potassium, serum 4.2 mmol/L 3.5-5.2 chloride, serum [...] Panel - Chemistry sodium, serum 144 mmol/L 359-445 7961/12/15 potassium, serum 5.4 mmol/L 3.5-5.2 chloride, serum [...] CBC W/DIFF, Comp. Metabolic Panel - Hematology lymphocytes as percent of blood leukocytes 34.9 % 20.5-51.1 erythrocyte (RBC) count 4.34 10^6/MM^3 10*6/mm3 4.04-5.48 hemoglobin, blood 13.2 g/dL 12.0-16.0 hematocrit, blood 39.6 % 36.0-46.0 mean corpuscular volume, RBC 91 fL 80-97 mean corpuscular hemoglobin, RBC 30.3 pg 27.0-31.2 mean corpuscular hemoglobin concentration, RBC 33.3 G/DL % 31.8- 35.4 red blood cell distribution width 15.9 % 11.6-14.8 platelet count 186 10^3/MM^3 10*3/mm3 543-986 4678/12/15 leukocyte count, blood 4.1 10^3/MM^3 10*3/mm3 4.6-10.2 neutrophils as percent of blood leukocytes 55.5 % 42.2-75.2 monocytes as percent of blood leukocytes 8.4 % 1.7-9.3 Lab Report: CBC, Comp. Metabolic Panel, FreeT4, TSH, UA - Chemistry protein, total urine random Negative mg/dL Negative sodium, serum 143 mmol/L 233-518 8431/10/24 potassium, serum 3.9 mmol/L 3.5-5.2 chloride, serum [...] 0.87 ng/dL 0.76-1.46 TSH 0.78 m[iU]/mL 0.36-3.74 RBC, urine, dipstick Negative Negative Lab Report: CBC, Comp. Metabolic Panel, FreeT4, TSH, UA - Hematology mean corpuscular hemoglobin, RBC 30.4 pg 27.0-31.2 mean corpuscular hemoglobin concentration, RBC 33.2 G/DL % 31.8- 35.4 red blood cell distribution width 15.6 % 11.6-14.8 platelet count 186 10^3/MM^3 10*3/mm3 552-621 8757/10/24 mean corpuscular volume, RBC 92 fL 80-97 [...] nitrite, urine, semiquantitative Negative Negative Lab Report: Lipid Panel - Chemistry triglyceride, serum, fasting 51 mg/dL 30-200 cholesterol, serum 173 mg/dL 743-151 8265/04/28 HDL cholesterol, serum 63 mg/dL 32-96 LDL [...] 0-19 Encounters Code Encounter Date Provider Facility CPT-30193 Level 4 Est. Patient 21:29:26 CDT Yolande Lindsay MD PhD [facility] CPT-42432 Level 3 Est. Patient 07:37:45 CDT Yolande Lindsay MD PhD [facility] CPT-12030 Level 3 Est. Patient 17:03:46 CDT Yolande Lindsay MD PhD [facility] CPT-51897 Level 4 Est. Patient 20:02:13 [employer]LECTR[employer]OLS ASSEM[employer]ER Yolande Lindsay MD PhD [facility] CPT-58362 Level 3 Est. 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 Patient 15:00:38 CDT Jared Og MD [facility]-04536 Level 3 Est. Patient 10:22:32 CDT Yolande Lindsay MD [facility] CPT-81776 Level 3 Est. Patient 17:12:58 CDT Yolande Lindsay MD [facility]-63172 Level 4 Est. Patient 13:30:58 CDT Yolande Lindsay MD [facility]-76884 Level 4 New Patient 09:02:42 CDT Jared Og MD [facility]-34532 Level 3 Est. Patient 08:19:07 CDT Yolande Lindsay MD [facility] CPT-09132 Level 3 Est. Patient 12:00:13 ELECTR[employer]OLS ASSEMBLER Gab Padron MD [facility]-38727 Level 3 Est. 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 Patient 19:47:15 CDT Yolande Lindsay MD [facility] CPT-27999 Level 3 Est. Patient 21:38:31 CDT Yolande Lindsay MD [facility]-79873 Level 3 Est. Patient 10:25:12 CDT Adiel PERAZA [facility] CPT-74803 Level 4 Est. Patient 10:51:58 CDT Yolande Lindsay MD [facility]-30085 Level 3 Est. Patient 14:04:55 ELECTR[employer]OLS ASSEMBLER Rodrigo Sarah [facility] CPT-07551 Level 3 Est. Patient 10:46:35 ELECTR[employer]OLS ASSEMBLER Rodrigo Sarah [facility] CPT-15907 Level 3 Est. Patient 14:24:37 ELECTRICAL [employer]OLS ASSEMBLER Yolande Lindsay MD [facility] CPT-88872 Level 3 Est. Patient 17:41:58 ELECTR[employer]OLS ASSEMBLER Yolande Lindsay MD [facility] CPT-75633 Level 2 Est. Patient 22:01:41 ELECTRICAL [employer]OLS ASSEMBLER Rodrigo Sarah [facility] CPT-40318 Level 2 Est. Patient 22:01:11 ELECTRICAL [employer]OLS ASSEMBLER Rodrigo Sarah [facility] CPT-97293 Level 3 Est. Patient 10:12:29 ELECTRICAL [employer]OLS ASSEMBLER Rodrigo Sarah [facility] CPT-34797 Level 3 Est. Patient 11:05:44 CDT Alexis Ordaz MD [facility] CPT-63468 Level 3 Est. Patient 14:57:20 CDT Yolande Lindsay MD [facility] CPT-98620 Level 3 Est. Patient 14:40:57 CDT Yolande Lindsay MD [facility] CPT-59535 Level 3 Est. Patient 20:55:40 CDT Yolande Lindsay MD [facility] CPT-95292 Level 3 Est. 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 Patient 11:54:49 ELECTR[employer]OLS ASSEMBLER Des Hines MD [facility] CPT-71300 Level 3 Est. Patient 17:06:38 CDT Dewayne PERAZA [facility] Procedures Code Procedure Name Date Entry Date Standard Description [id number] Event Monitor - MC Transmission 09:12:32 CDT 08/06 [id number] Event Monitor - MC review and interp 09:12:32 CDT [id number] Event Monitor - MC recording 09:12:32 CDT CPT-17342 EKG Trac and Interp 16:50:22 CDT CPT-J1030 Depo Medrol 40 mg (Methyl Prednisolone Acetate) 17:05: 54 CDT CPT-J1100 Decadron 4mg (Dexamethasone) 17:05:54 CDT CPT-62169 Abx/Therapy Injection 17:05:54 CDT CPT-J1100 Decadron 4mg (Dexamethasone) 16:55:28 CDT CPT-J1030 Depo Medrol 40 mg (Methyl Prednisolone Acetate) 16:55: 28 CDT CPT-51085 Ankle Complete - Min 3V 15:58:50 CDT CPT-15137 Knee 3V 15:58:50 CDT CPT-69881 Hip comp min 2V 15:58:50 CDT CPT-J2270 Morphine Sulfate 10 mg 14:25:44 [employer]ER CPT-J2550 Phenergan 12.5 mg (Promethazine) 14:25:44 [employer]S [employer]SEM[employer]ER CPT-34453 Abx/Therapy Injection 14:25:44 [employer]LECTRICAL [employer]S ASSEMBLER CPT-J2550 Phenergan 12.5 mg (Promethazine) 14:08:03 [employer]S AS[employer]ER CPT-J2270 Morphine Sulfate 10 mg 14:08:03 [employer]ER CPT-36513 Bladder Scan 15:00:38 CDT CPT-TCMM Transitional Care Mgmt-Moderate 09:52:22 CDT CPT-J1030 Depo Medrol 40 mg (Methyl Prednisolone Acetate) 10:55: 18 CDT CPT-J1100 Decadron 4mg (Dexamethasone) 10:55:18 CDT CPT-83497 Abx/Therapy Injection 10:55:18 CDT CPT-J1030 Depo Medrol 40 mg (Methyl Prednisolone Acetate) 10:22: 32 CDT CPT-J1100 Decadron 4mg (Dexamethasone) 10:22:32 CDT CPT-17766 Postop F/U Visit 14:37:13 CDT CPT-06763 Ankle Complete - Min 3V 17:11:58 CDT CPT-56279 Foot comp min 3V 17:11:58 CDT CPT-33977 Bladder Scan 09:56:58 CDT CPT-31018 Postop F/U Visit 09:56:58 CDT CPT-84036 Cystoscopy 09:02:42 CDT CPT-16440 Bladder Scan 09:02:42 CDT CPT-67808 Abd single AP View 16:00:35 CDT CPT-28678 Administration single or combination vaccine inc oral 10 :15:43 CDT CPT-26329 Influenza split virus > age 3 10:15:43 CDT CPT-69906 Nail Avulsion 09:24:57 CDT CPT-OV Office Visit 11:15:41 CDT CPT-59131 Abx/Therapy Injection 10:51:30 CDT CPT-J3301 Kenalog 40 mg (Triamcinolone Acetonide) 10:25:12 CDT CPT-J1100 Decadron 4mg (Dexamethasone) 10:25:12 CDT CPT-55424 Anoscopy diagnostic 10:36:12 CDT CPT-OV Office Visit 15:34:31 CDT CPT-00075 Abx/Therapy Injection 08:21:15 [employer] CPT-J1885 Toradol 60 mg (Ketorolac) 10:46:35 [employer]ER CPT-OV Office Visit 19:51:16 [employer] CPT-50108 Spec Collection and Handling Fee 14:34:18 [employer]ER CPT-PV Prev. Care Visit 14:19:18 [employer]ER CPT-26232 Postop F/U Visit 14:47:51 [employer]ER CPT-73659 Postop F/U Visit 15:15:14 [employer]ER CPT-15567 Postop F/U Visit 14:41:43 CDT CPT-60622 Postop F/U Visit 15:47:46 CDT CPT-OV Office Visit 15:27:23 CDT CPT-OV Office Visit 17:20:34 CDT CPT-23874 Abx/Therapy Injection 15:05:57 CDT CPT-J1100 Decadron 8mg (Dexamethasone) 14:44:57 CDT CPT-J1040 Depo Medrol 80 mg (Methyl Prednisolone Acetate) 14:44: 57 CDT CPT-JTINJ Joint Injection 10:17:37 CDT CPT-24365 Administration 2+ single or combination vaccines inc oral 13:01:46 [employer] CPT-71736 Administration single or combination vaccine inc oral 13 :01:46 [employer] CPT-90723 Pneumovax 13:01:46 [employer] CPT-79501 Influenza split virus > age 3 13:01:46 [employer] CPT-95172 Administration single or combination vaccine inc oral 08 :56:49 CDT CPT-07422 Tdap 08:56:49 CDT
--- OUTSIDE RECORDS SUMMARY | 2017-03-21 23:27 | XMS REPORT | Clinical Summary ---
Author Author Admin, MARGRET Organization [facility] Address Unknown Phone Unavailable Allergies, Adverse Reactions, Alerts Allergy Name Reaction Description Start Date Severity Status Provider VALENTIN Critical Active Jillina Frazell CEILING CLEANER CHLORHEXIDINE GLUCONATE tongue and gums swollen Critical Active Hoa Otto RMA NORFLEX Rash Critical Active Jillina Frazell CEILING CLEANER TRAZODONE HCL sees things Critical Active Dewayne [...] frequency ALLERGIC RHINITIS 477.9 Active Rodrigo Sarah CEILING CLEANER Allergic rhinitis, cause unspecified AFTERCARE FLW SURG [...] MD Lumbago Cough 786.2 Active Rodrigo Sarah CEILING CLEANER Cough 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 Rodrigo Sarah APRN 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 Anemia 285.9 Active Gab Padron MD Anemia, unspecified FOOT PAIN, RIGHT ICD-729.5 Inactive Yolande Lindsay [...] 4 hours as needed for cough GUAIFENESIN-CODEINE 46779135924 Active Gab Padron MD Active CEFTIN 500 MG TAB 1 twice a day CEFUROXIME AXETIL 43435239932 Active Gab Padron MD Active AZITHROMYCIN 250 MG TABS 2 po qd x 1 day, then 1 po qd x 4 days AZITHROMYCIN 19348661097 No Longer Active Rodrigo Sarah APRN Active CLARITIN 10 MG TAB 1 tablet by mouth daily as needed for allergies LORATADINE 69915604648 Active Rodrigo Sarah APRN Active OXYCODONE HCL 5 MG ORAL CAPS 1 TAB PO Q HS OXYCODONE HCL 00759367487 No Longer Active Rodrigo Sarah APRN Active NIASPAN 500 MG ORAL CR-TABS 1 pill nightly x 1 week, then 2 pills nightly x 1 week, then 3 pills nightly x 1 week, then 4 pills nightly NIACIN (ANTIHYPERLIPIDEMIC) 26543343101 No Longer Active Rodrigo Sarah APRN Active NIACIN 500 MG TABS 1 pill by mouth nightly x 1 week, then 2 pills x 1 week, then 3 pills x 1 week, then 4 pills nightly - take after evening meal, with applesauce or an apple NIACIN 20675092868 No Longer Active Yolande Lindsay MD PhD Active FISH OIL 1000 MG CAPS 3 pills daily OMEGA-3 FATTY ACIDS 06220906280 Active Yolande Lindsay MD PhD Active TRIAMCINOLONE ACETONIDE 0.1 % CREA apply bid sparingly to rash TRIAMCINOLONE ACETONIDE 87915498564 Active Yolande Lindsay MD PhD Active FUROSEMIDE 20 MG TAB 1 tablet by mouth daily FUROSEMIDE 72026516593 Active Yolande Lindsay MD PhD Active LISINOPRIL 20 MG ORAL TABS 1 tab by mouth daily LISINOPRIL 25897142417 Active Yolande Lindsay MD PhD Active FUROSEMIDE 20 MG TABS 1 pill by mouth daily, for edema FUROSEMIDE 12189455145 No Longer Active Yolande Lindsay MD PhD Active ATORVASTATIN CALCIUM 10 MG TABS 1 pill by mouth daily, for cholesterol 09/06 ATORVASTATIN CALCIUM 16433035125 Active Yolande Lindsay MD PhD Active CALCIUM 600+D PLUS MINERALS 600-400 MG-UNIT ORAL CHEW 1 tab by mouth daily CALCIUM CARBONATE-VIT D-MIN 49816668679 No Longer Active Yolande Lindsay MD PhD Active CYCLOBENZAPRINE HCL 10 MG TABS 1 tablet by mouth three times daily as needed for muscle spasm/pain CYCLOBENZAPRINE HCL 17899473425 Active Yolande Lnidsay MD PhD Active ONDANSETRON 4 MG TBDP 1 q4h PRN nausea ONDANSETRON 61574390879 Active Yolande Lindsay MD PhD Active ADULT ASPIRIN EC LOW STRENGTH 81 MG TBEC Take 1 tablet by mouth daily 2014 ASPIRIN 77085324436 No Longer Active Yolande Lindsay MD PhD Active ZOFRAN ODT 4 MG TBDP 1 pill dissolved by mouth every 4 hours if needed for nausea ONDANSETRON 73045843758 No Longer Active Yolande Lindsay MD PhD Active CEFTIN 500 MG TAB 1 twice a day CEFUROXIME AXETIL 90104024466 No Longer Active Yolande Lindsay MD PhD Active ALBUTEROL SULFATE 0.083 % NEBU SOLN one vial per nebulizer every 4-6 hours as needed ALBUTEROL SULFATE 23020047527 No Longer Active Alexis Ordaz MD Active DOXYCYCLINE HYCLATE 100 MG CAP 1 cap by mouth twice daily DOXYCYCLINE HYCLATE 45845071210 No Longer Active Yolande Lindsay MD PhD Active CYCLOBENZAPRINE HCL 10 MG TABS 1/2 - 1 tab by mouth three times daily if needed for spasms/pain CYCLOBENZAPRINE HCL 61372832080 No Longer Active Yolande Lindsay MD PhD Active TRILEPTAL 600 MG TABS Take one 1/2 tablet in Am and 1 tablet at night OXCARBAZEPINE 80817130545 Active Yolande Lindsay MD PhD Active AZITHROMYCIN 250 MG TABS 2 pills on day 1, then 1 pill daily x 4 days AZITHROMYCIN 75435353721 No Longer Active Yolande Lindsay MD PhD Active XOPENEX 1.25 MG/3ML NEBU 1 neb every 4 hours if needed for cough/congestion LEVALBUTEROL HCL 43797348648 No Longer Active Yolande Lindsay MD PhD Active DOXYCYCLINE HYCLATE 100 MG TAB 1 tab twice a day for 14 days 2013 DOXYCYCLINE HYCLATE 30532165758 No Longer Active Yolande Lindsay MD PhD Active LEVOTHYROXINE SODIUM 75 MCG TABS Take 1 tab daily LEVOTHYROXINE SODIUM 24922763856 Active Yolande Lindsay MD PhD Active PREVACID 30 MG CPDR Take 1 tablet by mouth daily-PRN LANSOPRAZOLE 31163232302 No Longer Active Yolande Lindsay MD PhD Active PA VITAMIN D-3 2000 UNIT CAPS 1 CAP PO DAILY CHOLECALCIFEROL 74346475177 No Longer Active Yolande Lindsay MD PhD Active CEFDINIR 300 MG CAPS by mouth twice a day CEFDINIR 93981064763 No Longer Active Gab Padron MD Active TOPAMAX 50 MG TABS 1 PO twice daily TOPIRAMATE 62242474338 Active Yolande Lindsay MD PhD Active AZITHROMYCIN 250 MG TABS 2 po qd x 1 day, then 1 po qd x 4 days AZITHROMYCIN 14757821848 No Longer Active Yolande Lindsay MD PhD Active DICLOFENAC SODIUM 75 MG TBEC 1 tablet by q 12 hours PRN headaches DICLOFENAC SODIUM 13215985786 No Longer Active Yolande Lindsay MD PhD Active FLONASE 50 MCG/ACT SUSP 1 spray each nostril am and hs FLUTICASONE PROPIONATE 39151632809 No Longer Active Todd Callaway MD Active ANUSOL-HC 25 MG SUPPOSITORY 1 rectally twice a day as needed for hemorrhoids HYDROCORTISONE JAYDEN (RECTAL) 05155175041 No Longer Active Yolande Lindsay MD PhD Active ANUSOL-HC 25 MG SUPPOSITORY 1 suppository rectally each evening as needed for anal fissure HYDROCORTISONE JAYDEN (RECTAL) 50947984924 No Longer Active LONNIE Iglesias Active VALIUM 5 MG TAB 1 po 30 minutes prior to your MRI DIAZEPAM 94785960321 No Longer Active LONNIE Iglesias Active METHOCARBAMOL 750 MG TABS 1 PO QID PRN METHOCARBAMOL 33708579736 No Longer Active Daphne Wetzel APRN Active NITROSTAT 0.4 MG SUBL as directed NITROGLYCERIN 81902834315 No Longer Active Rodrigo Sarah APRN Active ROBAXIN-750 750 MG TABS 2 four times a day for 3 days as needed for muscle spasm, then 1 four times a day as needed METHOCARBAMOL 54513326919 No Longer Active Rodrigo Sarah APRN Active HYDROCODONE-ACETAMINOPHEN 5-325 MG TABS 1 q 4-6 hrs prn HYDROCODONE-ACETAMINOPHEN 87455136131 No Longer Active Jillina Frazell CEILING CLEANER Active VERAPAMIL HCL CR 180 MG CR-TABS TAKE 1 TAB DAILY VERAPAMIL HCL 96735024325 No Longer Active Yolande Lindsay MD PhD Active BACTRIM DS 800-160 MG TAB 1 tab by mouth twice daily TRIMETHOPRIM-SULFAMETHOXAZOLE 55548928969 No Longer Active Yolande Lindsay MD PhD Active NEXIUM 40 MG PACK 1 by mouth daily ESOMEPRAZOLE MAGNESIUM 41432950923 No Longer Active Des Hines MD Active EPIPEN 2-CHARLETTE 0.3 MG/0.3ML OMARI as need for allergic reaction EPINEPHRINE 35416570481 Active Yolande Lindsay MD PhD Active NEXIUM 40 MG CPDR 1 PO Q D DAY ESOMEPRAZOLE MAGNESIUM 68243276356 No Longer Active Sadia Perry RN Active NEXIUM 40 MG PACK 1 by mouth daily NEXIUM 40 MG PACK ESOMEPRAZOLE MAGNESIUM Inactive VERAPAMIL HCL CR 180 MG CR-TABS TAKE 1 TAB DAILY VERAPAMIL HCL CR 180 MG CR-TABS VERAPAMIL HCL Inactive HYDROCODONE-ACETAMINOPHEN 5-325 MG TABS 1 q 4-6 hrs prn HYDROCODONE-ACETAMINOPHEN 5-325 MG TABS 726616 HYDROCODONE-ACETAMINOPHEN Inactive ROBAXIN-750 750 MG TABS 2 four times a day for 3 days as needed for muscle spasm, then 1 four times a day as needed ROBAXIN-750 750 MG TABS 978441 METHOCARBAMOL Inactive NITROSTAT 0.4 MG SUBL as directed NITROSTAT 0.4 MG SUBL NITROGLYCERIN Inactive METHOCARBAMOL 750 MG TABS 1 PO QID PRN METHOCARBAMOL 750 MG TABS 19780706 METHOCARBAMOL Inactive VALIUM 5 MG TAB 1 po 30 minutes prior to your MRI VALIUM 5 MG TAB 069487 DIAZEPAM Inactive ANUSOL-HC 25 MG SUPPOSITORY 1 suppository rectally each evening as needed for anal fissure ANUSOL-HC 25 MG SUPPOSITORY 6961981 HYDROCORTISONE JAYDEN (RECTAL) Inactive ANUSOL-HC 25 MG SUPPOSITORY 1 rectally twice a day as needed for hemorrhoids ANUSOL-HC 25 MG SUPPOSITORY 5361260 HYDROCORTISONE JAYDEN (RECTAL) Inactive FLONASE 50 MCG/ACT SUSP 1 spray each nostril am and hs FLONASE 50 MCG/ACT SUSP FLUTICASONE PROPIONATE Inactive DICLOFENAC SODIUM 75 MG TBEC 1 tablet by q 12 hours PRN headaches DICLOFENAC SODIUM 75 MG TBEC 844590 DICLOFENAC SODIUM Inactive PA VITAMIN D-3 2000 UNIT CAPS 1 CAP PO DAILY PA VITAMIN D-3 2000 UNIT CAPS CHOLECALCIFEROL Inactive PREVACID 30 MG CPDR Take 1 tablet by mouth daily-PRN PREVACID 30 MG CPDR 455400 LANSOPRAZOLE Inactive DOXYCYCLINE HYCLATE 100 MG TAB 1 tab twice a day for 14 days 2013 DOXYCYCLINE HYCLATE 100 MG TAB 5091261 DOXYCYCLINE HYCLATE Inactive XOPENEX 1.25 MG/3ML NEBU 1 neb every 4 hours if needed for cough/congestion XOPENEX 1.25 MG/3ML NEBU 115769 LEVALBUTEROL HCL Inactive CYCLOBENZAPRINE HCL 10 MG TABS 1/2 - 1 tab by mouth three times daily if needed for spasms/pain CYCLOBENZAPRINE HCL 10 MG TABS 286949 CYCLOBENZAPRINE HCL Inactive ALBUTEROL SULFATE 0.083 % NEBU SOLN one vial per nebulizer every 4-6 hours as needed ALBUTEROL SULFATE 0.083 % NEBU SOLN 186138 ALBUTEROL SULFATE Inactive CEFTIN 500 MG TAB 1 twice a day CEFTIN 500 MG TAB 423278 CEFUROXIME AXETIL Inactive ZOFRAN ODT 4 MG TBDP 1 pill dissolved by mouth every 4 hours if needed for nausea ZOFRAN ODT 4 MG TBDP 044754 ONDANSETRON Inactive ADULT ASPIRIN EC LOW STRENGTH 81 MG TBEC Take 1 tablet by mouth daily 2014 ADULT ASPIRIN EC LOW STRENGTH 81 MG TBEC 811738 ASPIRIN Inactive CALCIUM 600+D PLUS MINERALS 600-400 [...] or an apple NIACIN 500 MG TABS 299930 NIACIN Inactive NIASPAN 500 MG ORAL CR-TABS 1 pill nightly x 1 week, then 2 pills nightly x 1 week, then 3 pills nightly x 1 week, then 4 pills nightly NIASPAN 500 MG ORAL CR-TABS NIACIN (ANTIHYPERLIPIDEMIC) Inactive OXYCODONE HCL 5 MG ORAL CAPS 1 TAB PO Q HS OXYCODONE HCL 5 MG ORAL CAPS 0945862 OXYCODONE HCL Inactive BACTRIM DS 800-160 MG TAB 1 tab by mouth twice daily BACTRIM DS 800-160 MG TAB 982004 TRIMETHOPRIM-SULFAMETHOXAZOLE Inactive AZITHROMYCIN 250 MG TABS 2 po qd x 1 day, then 1 po qd x 4 days AZITHROMYCIN 250 MG TABS 6655839 AZITHROMYCIN Inactive CEFDINIR 300 MG CAPS by mouth twice a day CEFDINIR 300 MG CAPS 541511 CEFDINIR Inactive AZITHROMYCIN 250 MG TABS 2 pills on day 1, then 1 pill daily x 4 days AZITHROMYCIN 250 MG TABS 6493411 AZITHROMYCIN Inactive DOXYCYCLINE HYCLATE 100 MG CAP 1 cap by mouth twice daily DOXYCYCLINE HYCLATE 100 MG CAP 2728781 DOXYCYCLINE HYCLATE Inactive FUROSEMIDE 20 MG TABS 1 pill by mouth daily, for edema FUROSEMIDE 20 MG TABS 391333 FUROSEMIDE Inactive AZITHROMYCIN 250 MG TABS 2 po qd x 1 day, then 1 po qd x 4 days AZITHROMYCIN 250 MG TABS 8622505 AZITHROMYCIN Inactive Immunizations Vaccine Administration Date Value Standard Description Seasonal influenza vaccine, injectable, containing preservative, for > 3 years old (Afluria, FluLaval, Fluzone, Fluvirin, Fluarix, Agriflu(>=18 yo)) Fluzone (>3 yrs.) [UGV673] Influenza, seasonal, injectable influenza immunization (Flu Vax) has been administered Influenza - Unspecified Formulation [CVX88] influenza virus vaccine, unspecified formulation pneumococcal immunization administered Pneumovax 23 [CVX33] pneumococcal polysaccharide vaccine, 23 valent Seasonal influenza vaccine, injectable, containing preservative, for > 3 years old (Afluria, FluLaval, Fluzone, Fluvirin, Fluarix, Agriflu(>=18 yo)) Fluzone (>3 yrs.) [ULJ172] Influenza, seasonal, injectable dT (Diphtheria and Tetanus) booster given given Td(adult) unspecified formulation Boostrix (Tetanus toxoid, reduced diphtheria toxoid and acellular pertussis vaccine, adsorbed), booster Boostrix [REA385] tetanus toxoid, reduced diphtheria toxoid, and acellular [...] Panel - Chemistry sodium, serum 145 mmol/L 403-980 9950/06/22 potassium, serum 3.9 mmol/L 3.5-5.2 chloride, serum 109 mmol/L 98-107 carbon dioxide, venous blood 23.4 mmol/L 21.0-32.0 blood glucose 92 mg/dL 65-110 calcium, serum 8.2 mg/dL 8.5-10.1 urea nitrogen, blood 24 mg/dL 7-18 creatinine, serum 1.30 mg/dL 0.60-1.30 Lab Report: [facility] Advanced Lipid and Inlammation Panel /02063 - Chemistry cholesterol, serum 198 mg/dL 147-221 8245/04/30 HDL cholesterol, serum 65 mg/dL > OR=46 triglyceride, serum, fasting 82 mg/dL LDL cholesterol, serum 117 mg/dL cholesterol/HDL ratio, serum 3.0 calc < OR=5.0 cholesterol, serum 148 mg/dL 192-466 3172/09/02 HDL cholesterol, serum 55 mg/dL > OR=46 [...] Panel - Chemistry sodium, serum 144 mmol/L 496-775 5541/01/21 potassium, serum 4.2 mmol/L 3.5-5.2 chloride, serum [...] (L) - Chemistry sodium, serum 145 mmol/L 877-393 6227/09/02 potassium, serum 4.6 mmol/L 3.5-5.2 chloride, serum [...] 51 mg/dL 30-200 cholesterol, serum 173 mg/dL 537-107 0286/04/28 HDL cholesterol, serum 63 mg/dL 32-96 LDL [...] mg/dL Encounters Code Encounter Date Provider Facility CPT-96014 Level 3 Est. Patient 11:02:19 SOCIAL CONTACT WORKER Gab Padron MD [facility] CPT-00009 Level 4 Est. Patient 22:24:31 SOCIAL CONTACT WORKER Gab Padron MD [facility] CPT-12174 Level 3 Est. Patient 18:33:46 SOCIAL CONTACT WORKER Gab Padron MD [facility] CPT-04463 Level 3 Est. Patient 16:19:11 CDT Yolande Lindsay MD PhD [facility] CPT-73957 Level 3 Est. Patient 18:59:14 CDT Yolande Lindsay MD PhD [facility] CPT-80820 Level 4 Est. Patient 21:29:26 CDT Yolande Lindsay MD PhD [facility] CPT-41206 Level 3 Est. Patient 07:37:45 CDT Yolande Lindsay MD PhD [facility] CPT-01517 Level 3 Est. Patient 17:03:46 CDT Yolande Lindsay MD PhD [facility] CPT-63806 Level 4 Est. Patient 20:02:13 SOCIAL CONTACT WORKER Yolande Lindsay MD [facility] CPT-09834 Level 3 Est. Patient 16:02:07 SOCIAL CONTACT WORKER Alexis Ordaz MD [facility]-63686 Level 3 Est. Patient 12:41:24 SOCIAL CONTACT WORKER Yolande Lindsay MD [facility]-66216 Level 3 Est. Patient 15:41:20 SOCIAL CONTACT WORKER Yolande Lindsay MD [facility]-75344 Level 3 Est. Patient 13:20:02 SOCIAL CONTACT WORKER Yolande Lindsay MD [facility]-23617 Level 3 Est. Patient 15:00:38 CDT Jared Og MD [facility] CPT-35043 Level 3 Est. Patient 10:22:32 CDT Yolande Lindsay MD [facility] CPT-62094 Level 3 Est. Patient 17:12:58 CDT Yolande Lindsay MD [facility] CPT-54740 Level 4 Est. Patient 13:30:58 CDT Yolande Lindsay MD [facility] CPT-90558 Level 4 New Patient 09:02:42 CDT Jared Og MD [facility]-92370 Level 3 Est. Patient 08:19:07 CDT Yolande Lindsay MD [facility] CPT-25470 Level 3 Est. Patient 12:00:13 SOCIAL CONTACT WORKER Gab Padron MD [facility] CPT-51581 Level 3 Est. Patient 16:15:23 SOCIAL CONTACT WORKER Yolande Lindsay MD [facility]-91672 Level 2 Est. Patient 19:47:15 CDT Yolande Lindsay MD [facility]-11005 Level 3 Est. Patient 21:38:31 CDT Yolande Lindsay MD [facility]-02824 Level 3 Est. Patient 10:25:12 CDT Adiel PERAZA [facility]-05918 Level 4 Est. Patient 10:51:58 CDT Yolande Lindsay MD [facility]-24244 Level 3 Est. Patient 14:04:55 SOCIAL CONTACT WORKER Rodrigo Sarah [facility][note 3]-26529 Level 3 Est. Patient 10:46:35 SOCIAL CONTACT WORKER Rodrigo Sarah [facility][note 3]-06613 Level 3 Est. Patient 14:24:37 SOCIAL CONTACT WORKER Yolande Lindsay MD [facility]-41803 Level 3 Est. Patient 17:41:58 SOCIAL CONTACT WORKER Yolande Lindsay MD [facility]-44379 Level 2 Est. Patient 22:01:41 SOCIAL CONTACT WORKER Rodrigo Sarah [facility] CPT-89298 Level 2 Est. Patient 22:01:11 SOCIAL CONTACT WORKER Silvestrellnacho Montemayorl [facility][note 3]-82152 Level 3 Est. Patient 10:12:29 SOCIAL CONTACT WORKER Rodrigo Sarah [facility][note 3]-37720 Level 3 Est. Patient 11:05:44 CDT Alexis Ordaz MD [facility]-92946 Level 3 Est. Patient 14:57:20 CDT Yolande Lindsay MD [facility]-32573 Level 3 Est. Patient 14:40:57 CDT Yolande Lindsay MD [facility]80650 Level 3 Est. Patient 20:55:40 CDT Yolande Lindsay MD [facility]04049 Level 3 Est. Patient 12:42:38 SOCIAL CONTACT WORKER Yolande Lindsay MD PhD [facility] CPT-22748 Level 3 Est. Patient 11:54:49 SOCIAL CONTACT WORKER Des Hines MD [facility] CPT-39704 Level 3 Est. Patient 17:06:38 CDT Dewayne PERAZA [facility] Procedures Code Procedure Name Date Entry Date Standard Description [id number] Event Monitor - MC Transmission 09:12:32 CDT 08/06 [id number] Event Monitor - MC review and interp 09:12:32 CDT [id number] Event Monitor - MC recording 09:12:32 CDT CPT-19113 EKG Trac and Interp 16:50:22 CDT CPT-J1030 Depo Medrol 40 mg (Methyl Prednisolone Acetate) 17:05: 54 CDT CPT-J1100 Decadron 4mg (Dexamethasone) 17:05:54 CDT CPT-34493 Abx/Therapy Injection 17:05:54 CDT CPT-J1100 Decadron 4mg (Dexamethasone) 16:55:28 CDT CPT-J1030 Depo Medrol 40 mg (Methyl Prednisolone Acetate) 16:55: 28 CDT CPT-94549 Ankle Complete - Min 3V 15:58:50 CDT CPT-84984 Knee 3V 15:58:50 CDT CPT-56714 Hip comp min 2V 15:58:50 CDT CPT-J2270 Morphine Sulfate 10 mg 14:25:44 SOCIAL CONTACT WORKER CPT-J2550 Phenergan 12.5 mg (Promethazine) 14:25:44 SOCIAL CONTACT WORKER CPT-81382 Abx/Therapy Injection 14:25:44 SOCIAL CONTACT WORKER CPT-J2550 Phenergan 12.5 mg (Promethazine) 14:08:03 SOCIAL CONTACT WORKER CPT-J2270 Morphine Sulfate 10 mg 14:08:03 SOCIAL CONTACT WORKER CPT-20049 Bladder Scan 15:00:38 CDT CPT-TCMM Transitional Care Mgmt-Moderate 09:52:22 CDT CPT-J1030 Depo Medrol 40 mg (Methyl Prednisolone Acetate) 10:55: 18 CDT CPT-J1100 Decadron 4mg (Dexamethasone) 10:55:18 CDT CPT-62510 Abx/Therapy Injection 10:55:18 CDT CPT-J1030 Depo Medrol 40 mg (Methyl Prednisolone Acetate) 10:22: 32 CDT CPT-J1100 Decadron 4mg (Dexamethasone) 10:22:32 CDT CPT-81903 Postop F/U Visit 14:37:13 CDT CPT-53278 Ankle Complete - Min 3V 17:11:58 CDT CPT-66436 Foot comp min 3V 17:11:58 CDT CPT-46834 Bladder Scan 09:56:58 CDT CPT-71895 Postop F/U Visit 09:56:58 CDT CPT-68521 Cystoscopy 09:02:42 CDT CPT-21001 Bladder Scan 09:02:42 CDT CPT-57623 Abd single AP View 16:00:35 CDT CPT-72979 Administration single or combination vaccine inc oral 10 :15:43 CDT CPT-58828 Influenza split virus > age 3 10:15:43 CDT CPT-18891 Nail Avulsion 09:24:57 CDT CPT-OV Office Visit 11:15:41 CDT CPT-50739 Abx/Therapy Injection 10:51:30 CDT CPT-J3301 Kenalog 40 mg (Triamcinolone Acetonide) 10:25:12 CDT CPT-J1100 Decadron 4mg (Dexamethasone) 10:25:12 CDT CPT-89256 Anoscopy diagnostic 10:36:12 CDT CPT-OV Office Visit 15:34:31 CDT CPT-53728 Abx/Therapy Injection 08:21:15 SOCIAL CONTACT WORKER CPT-J1885 Toradol 60 mg (Ketorolac) 10:46:35 SOCIAL CONTACT WORKER CPT-OV Office Visit 19:51:16 SOCIAL CONTACT WORKER CPT-79716 Spec Collection and Handling Fee 14:34:18 SOCIAL CONTACT WORKER CPT-PV Prev. Care Visit 14:19:18 SOCIAL CONTACT WORKER CPT-73967 Postop F/U Visit 14:47:51 SOCIAL CONTACT WORKER CPT-11637 Postop F/U Visit 15:15:14 SOCIAL CONTACT WORKER CPT-95051 Postop F/U Visit 14:41:43 CDT CPT-62200 Postop F/U Visit 15:47:46 CDT CPT-OV Office Visit 15:27:23 CDT CPT-OV Office Visit 17:20:34 CDT CPT-29856 Abx/Therapy Injection 15:05:57 CDT CPT-J1100 Decadron 8mg (Dexamethasone) 14:44:57 CDT CPT-J1040 Depo Medrol 80 mg (Methyl Prednisolone Acetate) 14:44: 57 CDT CPT-JTINJ Joint Injection 10:17:37 CDT CPT-97031 Administration 2+ single or combination vaccines inc oral 13:01:46 SOCIAL CONTACT WORKER CPT-96064 Administration single or combination vaccine inc oral 13 :01:46 SOCIAL CONTACT WORKER CPT-98140 Pneumovax 13:01:46 SOCIAL CONTACT WORKER CPT-28436 Influenza split virus > age 3 13:01:46 SOCIAL CONTACT WORKER CPT-02347 Administration single or combination vaccine inc oral 08 :56:49 CDT CPT-88954 Tdap 08:56:49 CDT
--- OUTSIDE RECORDS SUMMARY | 2017-03-21 23:29 | XMS REPORT | Clinical Summary ---
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 Yolande iLndsay MD PhD Other disorders of coccyx ABDOMINAL [...] of 412 Active Hoa Otto [facility] Old myocardial infarction Pelvic pain 789.09 Active Yolande Lindsay MD PhD Abdominal pain, other specified site; multiple sites Edema 782.3 Active Yolande Lindsay MD PhD Edema Rash 782.1 Active Yolande Lindsay MD PhD Rash and other nonspecific skin eruption Back pain, lumbar 724.2 Active Gab Padron MD Lumbago Cough 786.2 Active Jillina Tyrel MECHANICAL SHOVEL OPERATOR Cough 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 Jillina Frazellilian MECHANICAL SHOVEL OPERATOR 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 Anemia 285.9 Active Gab Padron MD Anemia, unspecified Conjunctivitis 372.30 Active Jillina Tyrel MECHANICAL SHOVEL OPERATOR Conjunctivitis, unspecified Sinusitis 473.9 Active Jillnacho Sarah [...] EXAMINATION ICD-V72.31 Inactive Yolande Lindsay MD PhD FISSURE, ANAL [...] acute ICD-461.9 Inactive Yolande Lindsay MD PhD Hematuria ICD-599.70 Inactive Yolande Lindsay MD PhD Ankle pain, right ICD-719.47 Inactive Yolande Lindsay MD PhD Abdominal pain, [...] MCG/DOSE AEPB 1 puff BID FLUTICASONE- SALMETEROL 02421360155 Active Rodrigo Sarah MECHANICAL SHOVEL OPERATOR Active LEVOTHYROXINE SODIUM 75 MCG TABS Take 1 tab daily LEVOTHYROXINE SODIUM 87849426130 No Longer Active Mariana Cuadra RMA Active SYNTHROID 88 MCG ORAL TABS Take one by mouth daily LEVOTHYROXINE SODIUM 16940403490 Active Mariana Cuadra RMA Active CHERATUSSIN AC 100-10 MG/5ML SYRP 1 tsp by mouth every 4 hours as needed for cough GUAIFENESIN-CODEINE 81878280086 No Longer Active Gab Padron MD Active POLYTRIM 18070-8.1 UNIT/ML-% SOLN 1 gtt to affected eye q3h x 7 days POLYMYXIN B-TRIMETHOPRIM 05867102044 No Longer Active Gab Padron MD Active FLUTICASONE PROPIONATE 50 MCG/ACT SUSP 1 to 2 sprays each nostril daily 04/21 FLUTICASONE PROPIONATE 47428181904 No Longer Active Gab Padron MD Active TRILEPTAL 600 MG TABS Take one 1 tablet in Am and 1 tablet at night OXCARBAZEPINE 66257517880 Active Gab Padron MD Active CEFDINIR 300 MG CAPS 1 po BID x 10 days CEFDINIR 12372138316 No Longer Active Rodrigo Sarah APRN Active CEFTIN 500 MG TAB 1 twice a day CEFUROXIME AXETIL 62939164027 No Longer Active Gab Padron MD Active AZITHROMYCIN 250 MG TABS 2 po qd x 1 day, then 1 po qd x 4 days AZITHROMYCIN 16982501848 No Longer Active Rodrigo Sarah APRN Active CLARITIN 10 MG TAB 1 tablet by mouth daily as needed for allergies LORATADINE 20578735992 Active Silvestrellnacho Sarah APRN Active OXYCODONE HCL 5 MG ORAL CAPS 1 TAB PO Q HS OXYCODONE HCL 56713153844 No Longer Active Rodrigo Sarah APRN Active NIASPAN 500 MG ORAL CR-TABS 1 pill nightly x 1 week, then 2 pills nightly x 1 week, then 3 pills nightly x 1 week, then 4 pills nightly NIACIN (ANTIHYPERLIPIDEMIC) 34415953658 No Longer Active Rodrigo Sarah APRN Active NIACIN 500 MG TABS 1 pill by mouth nightly x 1 week, then 2 pills x 1 week, then 3 pills x 1 week, then 4 pills nightly - take after evening meal, with applesauce or an apple NIACIN 73157755185 No Longer Active Yolande Lindsay MD PhD Active FISH OIL 1000 MG CAPS 3 pills daily OMEGA-3 FATTY ACIDS 06936289293 Active Yolande Lindsay MD PhD Active TRIAMCINOLONE ACETONIDE 0.1 % CREA apply bid sparingly to rash TRIAMCINOLONE ACETONIDE 67248753299 Active Yolande Lindsay MD PhD Active FUROSEMIDE 20 MG TAB 1 tablet by mouth daily FUROSEMIDE 89255506401 Active Yolande Lindsay MD PhD Active LISINOPRIL 20 MG ORAL TABS 1 tab by mouth daily LISINOPRIL 16175109554 Active Gab Padron MD Active FUROSEMIDE 20 MG TABS 1 pill by mouth daily, for edema FUROSEMIDE 75761149032 No Longer Active Yolande Lindsay MD PhD Active ATORVASTATIN CALCIUM 10 MG TABS 1 pill by mouth daily, for cholesterol 09/06 ATORVASTATIN CALCIUM 18487831746 Active Yolande Lindsay MD PhD Active CALCIUM 600+D PLUS MINERALS 600-400 MG-UNIT ORAL CHEW 1 tab by mouth daily CALCIUM CARBONATE-VIT D-MIN 42165594929 No Longer Active Yolande Lindsay MD PhD Active CYCLOBENZAPRINE HCL 10 MG TABS 1 tablet by mouth three times daily as needed for muscle spasm/pain CYCLOBENZAPRINE HCL 57457136089 Active Yolande Lindsay MD PhD Active ONDANSETRON 4 MG TBDP 1 q4h PRN nausea ONDANSETRON 22974199684 Active Yolande Lindsay MD PhD Active ADULT ASPIRIN EC LOW STRENGTH 81 MG TBEC Take 1 tablet by mouth daily 2014 ASPIRIN 15066232981 No Longer Active Yolande Lindsay MD PhD Active ZOFRAN ODT 4 MG TBDP 1 pill dissolved by mouth every 4 hours if needed for nausea ONDANSETRON 56842029651 No Longer Active Yolande Lindsay MD PhD Active CEFTIN 500 MG TAB 1 twice a day CEFUROXIME AXETIL 06760515076 No Longer Active Yolande Lindsay MD PhD Active ALBUTEROL SULFATE 0.083 % NEBU SOLN one vial per nebulizer every 4-6 hours as needed ALBUTEROL SULFATE 17179282982 No Longer Active Alexis Ordaz MD Active DOXYCYCLINE HYCLATE 100 MG CAP 1 cap by mouth twice daily DOXYCYCLINE HYCLATE 41898255102 No Longer Active Yolande Lindsay MD PhD Active CYCLOBENZAPRINE HCL 10 MG TABS 1/2 - 1 tab by mouth three times daily if needed for spasms/pain CYCLOBENZAPRINE HCL 23387746902 No Longer Active Yolande Lindsay MD PhD Active AZITHROMYCIN 250 MG TABS 2 pills on day 1, then 1 pill daily x 4 days AZITHROMYCIN 95300243139 No Longer Active Yolande Lindsay MD PhD Active XOPENEX 1.25 MG/3ML NEBU 1 neb every 4 hours if needed for cough/congestion LEVALBUTEROL HCL 02835483166 No Longer Active Yolande Lindsay MD PhD Active DOXYCYCLINE HYCLATE 100 MG TAB 1 tab twice a day for 14 days 2013 DOXYCYCLINE HYCLATE 13087214688 No Longer Active Yolande Lindsay MD PhD Active PREVACID 30 MG CPDR Take 1 tablet by mouth daily-PRN LANSOPRAZOLE 68322993821 No Longer Active Yolande Lindsay MD PhD Active PA VITAMIN D-3 2000 UNIT CAPS 1 CAP PO DAILY CHOLECALCIFEROL 22080269524 No Longer Active Yolande Lindsay MD PhD Active CEFDINIR 300 MG CAPS by mouth twice a day CEFDINIR 08311393631 No Longer Active Gab Padron MD Active TOPAMAX 50 MG TABS 1 PO twice daily TOPIRAMATE 08517641143 Active Yolande Lindsay MD PhD Active AZITHROMYCIN 250 MG TABS 2 po qd x 1 day, then 1 po qd x 4 days AZITHROMYCIN 40555852765 No Longer Active Yolande Lindsay MD PhD Active DICLOFENAC SODIUM 75 MG TBEC 1 tablet by q 12 hours PRN headaches DICLOFENAC SODIUM 44742698793 No Longer Active Yolande Lindsay MD PhD Active FLONASE 50 MCG/ACT SUSP 1 spray each nostril am and hs FLUTICASONE PROPIONATE 88336520581 No Longer Active Todd Callaawy MD Active ANUSOL-HC 25 MG SUPPOSITORY 1 rectally twice a day as needed for hemorrhoids HYDROCORTISONE JAYDEN (RECTAL) 98644854883 No Longer Active Yolande Lindsay MD PhD Active ANUSOL-HC 25 MG SUPPOSITORY 1 suppository rectally each evening as needed for anal fissure HYDROCORTISONE JAYDEN (RECTAL) 04183540882 No Longer Active LONNIE Iglesias Active VALIUM 5 MG TAB 1 po 30 minutes prior to your MRI DIAZEPAM 58418716644 No Longer Active LONNIE Iglesias Active METHOCARBAMOL 750 MG TABS 1 PO QID PRN METHOCARBAMOL 92745466711 No Longer Active Daphne Wetzel APRN Active NITROSTAT 0.4 MG SUBL as directed NITROGLYCERIN 94123938751 No Longer Active Rodrigo Sarah APRN Active ROBAXIN-750 750 MG TABS 2 four times a day for 3 days as needed for muscle spasm, then 1 four times a day as needed METHOCARBAMOL 36313648435 No Longer Active Rodrigo Sarah APRN Active HYDROCODONE-ACETAMINOPHEN 5-325 MG TABS 1 q 4-6 hrs prn HYDROCODONE-ACETAMINOPHEN 52747561646 No Longer Active Rodrigo Sarah APRN Active VERAPAMIL HCL CR 180 MG CR-TABS TAKE 1 TAB DAILY VERAPAMIL HCL 01991735110 No Longer Active Yolande Lindsay MD PhD Active BACTRIM DS 800-160 MG TAB 1 tab by mouth twice daily TRIMETHOPRIM-SULFAMETHOXAZOLE 49392794637 No Longer Active Yolande Lindsay MD PhD Active NEXIUM 40 MG PACK 1 by mouth daily ESOMEPRAZOLE MAGNESIUM 60947615594 No Longer Active Des Hines MD Active EPIPEN 2-CHARLETTE 0.3 MG/0.3ML OMARI as need for allergic reaction EPINEPHRINE 22938034404 Active Yolande Lindsay MD PhD Active NEXIUM 40 MG CPDR 1 PO Q D DAY ESOMEPRAZOLE MAGNESIUM 33389047788 No Longer Active Sadia Perry RN Active NEXIUM 40 MG PACK 1 by mouth daily NEXIUM 40 MG PACK ESOMEPRAZOLE MAGNESIUM Inactive VERAPAMIL HCL CR 180 MG CR-TABS TAKE 1 TAB DAILY VERAPAMIL HCL CR 180 MG CR-TABS VERAPAMIL HCL Inactive HYDROCODONE-ACETAMINOPHEN 5-325 MG TABS 1 q 4-6 hrs prn HYDROCODONE-ACETAMINOPHEN 5-325 MG TABS 769225 HYDROCODONE-ACETAMINOPHEN Inactive ROBAXIN-750 750 MG TABS 2 four times a day for 3 days as needed for muscle spasm, then 1 four times a day as needed ROBAXIN-750 750 MG TABS 355840 METHOCARBAMOL Inactive NITROSTAT 0.4 MG SUBL as directed NITROSTAT 0.4 MG SUBL NITROGLYCERIN Inactive METHOCARBAMOL 750 MG TABS 1 PO QID PRN METHOCARBAMOL 750 MG TABS 739970 METHOCARBAMOL Inactive VALIUM 5 MG TAB 1 po 30 minutes prior to your MRI VALIUM 5 MG TAB 302072 DIAZEPAM Inactive ANUSOL-HC 25 MG SUPPOSITORY 1 suppository rectally each evening as needed for anal fissure ANUSOL-HC 25 MG SUPPOSITORY 9290262 HYDROCORTISONE JAYDEN (RECTAL) Inactive ANUSOL-HC 25 MG SUPPOSITORY 1 rectally twice a day as needed for hemorrhoids ANUSOL-HC 25 MG SUPPOSITORY 5051340 HYDROCORTISONE JAYDEN (RECTAL) Inactive FLONASE 50 MCG/ACT SUSP 1 spray each nostril am and hs FLONASE 50 MCG/ACT SUSP FLUTICASONE PROPIONATE Inactive DICLOFENAC SODIUM 75 MG TBEC 1 tablet by q 12 hours PRN headaches DICLOFENAC SODIUM 75 MG TBEC 009372 DICLOFENAC SODIUM Inactive PA VITAMIN D-3 2000 UNIT CAPS 1 CAP PO DAILY PA VITAMIN D-3 2000 UNIT CAPS CHOLECALCIFEROL Inactive PREVACID 30 MG CPDR Take 1 tablet by mouth daily-PRN PREVACID 30 MG CPDR 407609 LANSOPRAZOLE Inactive DOXYCYCLINE HYCLATE 100 MG TAB 1 tab twice a day for 14 days 2013 DOXYCYCLINE HYCLATE 100 MG TAB 8333134 DOXYCYCLINE HYCLATE Inactive XOPENEX 1.25 MG/3ML NEBU 1 neb every 4 hours if needed for cough/congestion XOPENEX 1.25 MG/3ML NEBU 106031 LEVALBUTEROL HCL Inactive CYCLOBENZAPRINE HCL 10 MG TABS 1/2 - 1 tab by mouth three times daily if needed for spasms/pain CYCLOBENZAPRINE HCL 10 MG TABS 188695 CYCLOBENZAPRINE HCL Inactive ALBUTEROL SULFATE 0.083 % NEBU SOLN one vial per nebulizer every 4-6 hours as needed ALBUTEROL SULFATE 0.083 % NEBU SOLN 722637 ALBUTEROL SULFATE Inactive CEFTIN 500 MG TAB 1 twice a day CEFTIN 500 MG TAB 285086 CEFUROXIME AXETIL Inactive ZOFRAN ODT 4 MG TBDP 1 pill dissolved by mouth every 4 hours if needed for nausea ZOFRAN ODT 4 MG TBDP 809520 ONDANSETRON Inactive ADULT ASPIRIN EC LOW STRENGTH 81 MG TBEC Take 1 tablet by mouth daily 2014 ADULT ASPIRIN EC LOW STRENGTH 81 MG TBEC 173154 ASPIRIN Inactive CALCIUM 600+D PLUS MINERALS 600-400 [...] or an apple NIACIN 500 MG TABS 943478 NIACIN Inactive NIASPAN 500 MG ORAL CR-TABS 1 pill nightly x 1 week, then 2 pills nightly x 1 week, then 3 pills nightly x 1 week, then 4 pills nightly NIASPAN 500 MG ORAL CR-TABS NIACIN (ANTIHYPERLIPIDEMIC) Inactive OXYCODONE HCL 5 MG ORAL CAPS 1 TAB PO Q HS OXYCODONE HCL 5 MG ORAL CAPS 0093675 OXYCODONE HCL Inactive FLUTICASONE PROPIONATE 50 MCG/ACT SUSP 1 to 2 sprays each nostril daily 04/21 FLUTICASONE PROPIONATE 50 MCG/ACT SUSP 786030 FLUTICASONE PROPIONATE Inactive POLYTRIM 77475-9.1 UNIT/ML-% SOLN 1 gtt to affected eye q3h x 7 days POLYTRIM 17009-6.1 UNIT/ML-% SOLN 774352 POLYMYXIN B- TRIMETHOPRIM Inactive CHERATUSSIN AC 100-10 MG/5ML SYRP 1 tsp by mouth every 4 hours as needed for cough CHERATUSSIN AC 100-10 MG/5ML SYRP 750054 GUAIFENESIN-CODEINE Inactive LEVOTHYROXINE SODIUM 75 MCG TABS Take 1 tab daily LEVOTHYROXINE SODIUM 75 MCG TABS 401590 LEVOTHYROXINE SODIUM Inactive BACTRIM DS 800-160 MG TAB 1 tab by mouth twice daily BACTRIM DS 800-160 MG TAB 660869 TRIMETHOPRIM-SULFAMETHOXAZOLE Inactive AZITHROMYCIN 250 MG TABS 2 po qd x 1 day, then 1 po qd x 4 days AZITHROMYCIN 250 MG TABS 5450886 AZITHROMYCIN Inactive CEFDINIR 300 MG CAPS by mouth twice a day CEFDINIR 300 MG CAPS 104397 CEFDINIR Inactive AZITHROMYCIN 250 MG TABS 2 pills on day 1, then 1 pill daily x 4 days AZITHROMYCIN 250 MG TABS 8549064 AZITHROMYCIN Inactive DOXYCYCLINE HYCLATE 100 MG CAP 1 cap by mouth twice daily DOXYCYCLINE HYCLATE 100 MG CAP 7111559 DOXYCYCLINE HYCLATE Inactive FUROSEMIDE 20 MG TABS 1 pill by mouth daily, for edema FUROSEMIDE 20 MG TABS 007907 FUROSEMIDE Inactive AZITHROMYCIN 250 MG TABS 2 po qd x 1 day, then 1 po qd x 4 days AZITHROMYCIN 250 MG TABS 2740596 AZITHROMYCIN Inactive CEFTIN 500 MG TAB 1 twice a day CEFTIN 500 MG TAB 604597 CEFUROXIME AXETIL Inactive CEFDINIR 300 MG CAPS 1 po BID x 10 days CEFDINIR 300 MG CAPS 827995 CEFDINIR Inactive Immunizations Vaccine Administration Date Value Standard Description Seasonal influenza vaccine, injectable, containing preservative, for > 3 years old (Afluria, FluLaval, Fluzone, Fluvirin, Fluarix, Agriflu(>=18 yo)) Fluzone (>3 yrs.) [YVN712] Influenza, seasonal, injectable influenza immunization (Flu Vax) has been administered Influenza - Unspecified Formulation [CVX88] influenza virus vaccine, unspecified formulation pneumococcal immunization administered Pneumovax 23 [CVX33] pneumococcal polysaccharide vaccine, 23 valent Seasonal influenza vaccine, injectable, containing preservative, for > 3 years old (Afluria, FluLaval, Fluzone, Fluvirin, Fluarix, Agriflu(>=18 yo)) Fluzone (>3 yrs.) [DJH302] Influenza, seasonal, injectable dT (Diphtheria and Tetanus) booster given given Td(adult) unspecified formulation Boostrix (Tetanus toxoid, reduced diphtheria toxoid and acellular pertussis vaccine, adsorbed), booster Boostrix [VJO010] tetanus toxoid, reduced diphtheria toxoid, and acellular [...] Panel - Chemistry sodium, serum 145 mmol/L 757-876 5872/06/22 potassium, serum 3.9 mmol/L 3.5-5.2 chloride, serum 109 mmol/L 98-107 carbon dioxide, venous blood 23.4 mmol/L 21.0-32.0 blood glucose 92 mg/dL 65-110 calcium, serum 8.2 mg/dL 8.5-10.1 urea nitrogen, blood 24 mg/dL 7-18 creatinine, serum 1.30 mg/dL 0.60-1.30 Lab Report: [facility] Advanced Lipid and Inlammation Panel /80453 - Chemistry cholesterol, serum 198 mg/dL 028-649 6740/04/30 HDL cholesterol, serum 65 mg/dL > OR=46 triglyceride, serum, fasting 82 mg/dL LDL cholesterol, serum 117 mg/dL cholesterol/HDL ratio, serum 3.0 calc < OR=5.0 cholesterol, serum 148 mg/dL 999-744 4612/09/02 HDL cholesterol, serum 55 mg/dL > OR=46 [...] (L) - Chemistry sodium, serum 145 mmol/L 188-504 9338/09/02 potassium, serum 4.6 mmol/L 3.5-5.2 chloride, serum [...] Rate - Chemistry sodium, serum 139 mmol/L 524-930 7619/03/24 carbon dioxide, venous blood 22.4 mmol/L 21.0-32.0 [...] 51 mg/dL 30-200 cholesterol, serum 173 mg/dL 276-469 2681/04/28 HDL cholesterol, serum 63 mg/dL 32-96 LDL [...] mg/dL Encounters Code Encounter Date Provider Facility CPT-67064 Level 3 Est. Patient 11:30:07 CDT Rodrigo Sarah APRN [facility] CPT-54733 Level 4 Est. Patient 21:02:30 CAMPAIGN MANAGER Gab Padron MD [facility] CPT-06058 Level 3 Est. Patient 11:02:19 CAMPAIGN MANAGER Gab Padron MD [facility] CPT-73736 Level 4 Est. Patient 22:24:31 CAMPAIGN MANAGER Gab Padron MD [facility] CPT-75044 Level 3 Est. Patient 18:33:46 CAMPAIGN MANAGER Gab Padron MD [facility] CPT-42607 Level 3 Est. Patient 16:19:11 CDT Yolande Lindsay MD PhD [facility] CPT-92305 Level 3 Est. Patient 18:59:14 CDT Yolande Lindsay MD PhD [facility] CPT-43351 Level 4 Est. Patient 21:29:26 CDT Yolande Lindsay MD PhD [facility] CPT-15150 Level 3 Est. Patient 07:37:45 CDT Yolande Lindsay MD PhD [facility] CPT-15287 Level 3 Est. Patient 17:03:46 CDT Yolande Lindsay MD [facility] CPT-81633 Level 4 Est. Patient 20:02:13 CAMPAIGN MANAGER Yolande Lindsay MD [facility]-99829 Level 3 Est. Patient 16:02:07 CAMPAIGN MANAGER Alexis Ordaz MD [facility]-90031 Level 3 Est. Patient 12:41:24 CAMPAIGN MANAGER Yolande Lindsay MD [facility]-18437 Level 3 Est. Patient 15:41:20 CAMPAIGN MANAGER Yolande Lindsay MD [facility]-90097 Level 3 Est. Patient 13:20:02 CAMPAIGN MANAGER Yolande Lindsay MD [facility]-47661 Level 3 Est. Patient 15:00:38 CDT Jared Og MD -23241 Level 3 Est. Patient 10:22:32 CDT Yolande Lindsay MD [facility] CPT-24896 Level 3 Est. Patient 17:12:58 CDT Yolande Lindsay MD [facility] CPT-17249 Level 4 Est. Patient 13:30:58 CDT Yolande Lindsay MD [facility] CPT-31173 Level 4 New Patient 09:02:42 CDT Jared Og MD -18322 Level 3 Est. Patient 08:19:07 CDT Yolande Lindsay MD [facility]-32112 Level 3 Est. Patient 12:00:13 CAMPAIGN MANAGER Gab Padron MD [facility]-48342 Level 3 Est. Patient 16:15:23 CAMPAIGN MANAGER Yolande Lindsay MD [facility]-71603 Level 2 Est. Patient 19:47:15 CDT Yolande Lindsay MD [facility]-71598 Level 3 Est. Patient 21:38:31 CDT Yolande Lindsay MD [facility]-94523 Level 3 Est. Patient 10:25:12 CDT Adiel Rodríguezozzie PERAZA [facility]-42633 Level 4 Est. Patient 10:51:58 CDT Yolande Lindsay MD [facility]-16601 Level 3 Est. Patient 14:04:55 CAMPAIGN MANAGER Rodrigo Sarah [facility]-17142 Level 3 Est. Patient 10:46:35 CAMPAIGN MANAGER Rodrigo Sarah [facility]-72526 Level 3 Est. Patient 14:24:37 CAMPAIGN MANAGER Yolande Lindsay MD [facility]-48718 Level 3 Est. Patient 17:41:58 CAMPAIGN MANAGER Yolande Lindsay MD [facility]-67275 Level 2 Est. Patient 22:01:41 CAMPAIGN MANAGER Rodrigo Sarah [facility]-41585 Level 2 Est. Patient 22:01:11 CAMPAIGN MANAGER Rodrigo Sarah [facility]-05647 Level 3 Est. Patient 10:12:29 CAMPAIGN MANAGER Rodrigo Sarah [facility]-00851 Level 3 Est. Patient 11:05:44 CDT Alexis Ordaz MD [facility]-39252 Level 3 Est. Patient 14:57:20 CDT Yolande Lindsay MD [facility]-60654 Level 3 Est. Patient 14:40:57 CDT Yolande Lindsay MD [facility]-46159 Level 3 Est. Patient 20:55:40 CDT Yolande Lindsay MD PhD [facility] CPT-19621 Level 3 Est. Patient 12:42:38 CAMPAIGN MANAGER Yolande Lindsay MD PhD [facility] CPT-61839 Level 3 Est. Patient 11:54:49 CAMPAIGN MANAGER Des Hines MD [facility] CPT-02002 Level 3 Est. Patient 17:06:38 CDT Dewayne PERAZA [facility] Procedures Code Procedure Name Date Entry Date Standard Description CPT-41479 LS spine comp w obliq 13:28:00 CAMPAIGN MANAGER CPT-J1040 Depo Medrol 80 mg (Methyl Prednisolone Acetate) 10:51: 28 CAMPAIGN MANAGER CPT-J1100 Decadron 8mg (Dexamethasone) 10:51:28 CAMPAIGN MANAGER CPT-57771 Abx/Therapy Injection 10:51:28 CAMPAIGN MANAGER CPT-J1100 Decadron 8mg (Dexamethasone) 21:02:30 CAMPAIGN MANAGER CPT-J1040 Depo Medrol 80 mg (Methyl Prednisolone Acetate) 21:02: 30 CAMPAIGN MANAGER [id number] Event Monitor - MC Transmission 09:12:32 CDT 08/06 [id number] Event Monitor - MC review and interp 09:12:32 CDT [id number] Event Monitor - MC recording 09:12:32 CDT CPT-52514 EKG Trac and Interp 16:50:22 CDT CPT-J1030 Depo Medrol 40 mg (Methyl Prednisolone Acetate) 17:05: 54 CDT CPT-J1100 Decadron 4mg (Dexamethasone) 17:05:54 CDT CPT-38661 Abx/Therapy Injection 17:05:54 CDT CPT-J1100 Decadron 4mg (Dexamethasone) 16:55:28 CDT CPT-J1030 Depo Medrol 40 mg (Methyl Prednisolone Acetate) 16:55: 28 CDT CPT-03149 Ankle Complete - Min 3V 15:58:50 CDT CPT-80727 Knee 3V 15:58:50 CDT CPT-83053 Hip comp min 2V 15:58:50 CDT CPT-J2270 Morphine Sulfate 10 mg 14:25:44 CAMPAIGN MANAGER CPT-J2550 Phenergan 12.5 mg (Promethazine) 14:25:44 CAMPAIGN MANAGER CPT-22434 Abx/Therapy Injection 14:25:44 CAMPAIGN MANAGER CPT-J2550 Phenergan 12.5 mg (Promethazine) 14:08:03 CAMPAIGN MANAGER CPT-J2270 Morphine Sulfate 10 mg 14:08:03 CAMPAIGN MANAGER CPT-66280 Bladder Scan 15:00:38 CDT CPT-TCMM Transitional Care Mgmt-Moderate 09:52:22 CDT CPT-J1030 Depo Medrol 40 mg (Methyl Prednisolone Acetate) 10:55: 18 CDT CPT-J1100 Decadron 4mg (Dexamethasone) 10:55:18 CDT CPT-14465 Abx/Therapy Injection 10:55:18 CDT CPT-J1030 Depo Medrol 40 mg (Methyl Prednisolone Acetate) 10:22: 32 CDT CPT-J1100 Decadron 4mg (Dexamethasone) 10:22:32 CDT CPT-85809 Postop F/U Visit 14:37:13 CDT CPT-86633 Ankle Complete - Min 3V 17:11:58 CDT CPT-70622 Foot comp min 3V 17:11:58 CDT CPT-41319 Bladder Scan 09:56:58 CDT CPT-54969 Postop F/U Visit 09:56:58 CDT CPT-31214 Cystoscopy 09:02:42 CDT CPT-40146 Bladder Scan 09:02:42 CDT CPT-30819 Abd single AP View 16:00:35 CDT CPT-39015 Administration single or combination vaccine inc oral 10 :15:43 CDT CPT-39550 Influenza split virus > age 3 10:15:43 CDT CPT-09429 Nail Avulsion 09:24:57 CDT CPT-OV Office Visit 11:15:41 CDT CPT-50934 Abx/Therapy Injection 10:51:30 CDT CPT-J3301 Kenalog 40 mg (Triamcinolone Acetonide) 10:25:12 CDT CPT-J1100 Decadron 4mg (Dexamethasone) 10:25:12 CDT CPT-63195 Anoscopy diagnostic 10:36:12 CDT CPT-OV Office Visit 15:34:31 CDT CPT-99240 Abx/Therapy Injection 08:21:15 CAMPAIGN MANAGER CPT-J1885 Toradol 60 mg (Ketorolac) 10:46:35 CAMPAIGN MANAGER CPT-OV Office Visit 19:51:16 CAMPAIGN MANAGER CPT-68182 Spec Collection and Handling Fee 14:34:18 CAMPAIGN MANAGER CPT-PV Prev. Care Visit 14:19:18 CAMPAIGN MANAGER CPT-53109 Postop F/U Visit 14:47:51 CAMPAIGN MANAGER CPT-77229 Postop F/U Visit 15:15:14 CAMPAIGN MANAGER CPT-19637 Postop F/U Visit 14:41:43 CDT CPT-48027 Postop F/U Visit 15:47:46 CDT CPT-OV Office Visit 15:27:23 CDT CPT-OV Office Visit 17:20:34 CDT CPT-07766 Abx/Therapy Injection 15:05:57 CDT CPT-J1100 Decadron 8mg (Dexamethasone) 14:44:57 CDT CPT-J1040 Depo Medrol 80 mg (Methyl Prednisolone Acetate) 14:44: 57 CDT CPT-JTINJ Joint Injection 10:17:37 CDT CPT-76369 Administration 2+ single or combination vaccines inc oral 13:01:46 CAMPAIGN MANAGER CPT-04558 Administration single or combination vaccine inc oral 13 :01:46 CAMPAIGN MANAGER CPT-56251 Pneumovax 13:01:46 CAMPAIGN MANAGER CPT-13189 Influenza split virus > age 3 13:01:46 CAMPAIGN MANAGER CPT-55297 Administration single or combination vaccine inc oral 08 :56:49 CDT CPT-28046 Tdap 08:56:49 CDT
--- OUTSIDE RECORDS SUMMARY | 2017-03-21 23:32 | XMS REPORT | Clinical Summary ---
Author Author Admin, E Organization [facility] Address Unknown Phone Unavailable Allergies, Adverse Reactions, Alerts Allergy Name Reaction Description Start Date Severity Status Provider VALENTIN Critical Active Rodrigo Fracharlottel SLIP COVER OPERATOR CHLORHEXIDINE GLUCONATE tongue and gums swollen Critical Active Hoadante Otto RMA NORFLEX Rash Critical Active Silvestrellina Frazell SLIP COVER OPERATOR TRAZODONE HCL sees things Critical Active [...] HEMORRHOIDS, INTERNAL, WITH BLEEDING 455.2 Resolved Yolande iLndsay MD PhD Internal hemorrhoids with other complication POISON SAMI DERMATITIS 692.6 Resolved Yolande Lindsay MD PhD Contact dermatitis and other eczema due to plants [except food] ANGIOEDEMA 995.1 Resolved Yolande Lindsay MD PhD Angioneurotic edema, not elsewhere classified GERD 530.81 Resolved oYlande Lindsay MD PhD Esophageal reflux RECTAL BLEEDING [...] Back pain, thoracic region, left ICD-724.1 Inactive aGb Padron MD Abdominal pain, left lower quadrant [...] 1 tab by mouth twice daily TRIMETHOPRIM-SULFAMETHOXAZOLE 68018603542 No Longer Active Tisha Lambert APRN Active ADVAIR DISKUS 250-50 MCG/DOSE AEPB 1 puff BID FLUTICASONE-SALMETEROL 03365649626 No Longer Active Todd Callaway MD Active ONDANSETRON 4 MG TBDP 1 q4h PRN nausea ONDANSETRON 47587559391 No Longer Active LONNIE Iglesias Active FISH OIL 1000 MG CAPS 3 pills daily OMEGA-3 FATTY ACIDS 21188680498 No Longer Active LONNIE Iglesias Active CETIRIZINE HCL 10 MG ORAL TABS 1 po qd PRN Allergies CETIRIZINE HCL 99432149303 Active Gab Padron MD Active CLARITIN 10 MG TAB 1 tablet by mouth daily as needed for allergies LORATADINE 63025558103 No Longer Active Gab Padron MD Active PREDNISONE 20 MG TAB take 3 tabs daily for 3 days, 2 tabs daily for 3 days, 1 tab daily for 3 days, 1/2 tab daily for 3 days PREDNISONE 99949650608 No Longer Active Tisha Lambert APRN Active TRAMADOL HCL 50 MG TABS 1 tab po every 6 hrs prn pain TRAMADOL HCL 69257692939 Active Gab Padron MD Active PREDNISONE 20 MG TAB 2 tabs daily for 3 days, 1 tab daily for 3 days, 1/2 tab daily for 2 days PREDNISONE 65641636714 No Longer Active Gab Padron MD Active ZOFRAN ODT 4 MG TBDP 1 po q6hr PRN Nausea ONDANSETRON 10381145993 Active Gab Padron MD Active IBUPROFEN 600 MG TAB 1 tablet by mouth every 6 hours for 7 days, then 1 tablet every 6 hours as needed. Take with food IBUPROFEN 50559587394 Active Rodrigo Sarah APRN Active BACTRIM DS 800-160 MG TAB 1 tab by mouth twice daily TRIMETHOPRIM-SULFAMETHOXAZOLE 52546300895 No Longer Active Gab Padron MD Active LEVOTHYROXINE SODIUM 75 MCG TABS Take 1 tab daily LEVOTHYROXINE SODIUM 27403716996 No Longer Active Mariana Cuadra [facility] Active SYNTHROID 88 MCG ORAL TABS Take one by mouth daily LEVOTHYROXINE SODIUM 98622670141 Active Gab Padron MD Active CHERATUSSIN AC 100-10 MG/5ML SYRP 1 tsp by mouth every 4 hours as needed for cough GUAIFENESIN-CODEINE 14684472542 No Longer Active Gab Padron MD Active POLYTRIM 67684-8.1 UNIT/ML-% SOLN 1 gtt to affected eye q3h x 7 days POLYMYXIN B-TRIMETHOPRIM 24355210989 No Longer Active Gab Padron MD Active FLUTICASONE PROPIONATE 50 MCG/ACT SUSP 1 to 2 sprays each nostril daily 04/21 FLUTICASONE PROPIONATE 65959026457 No Longer Active Gab Padron MD Active TRILEPTAL 600 MG TABS Take one 1 tablet in Am and 1 tablet at night OXCARBAZEPINE 20217925802 Active Gab Padron MD Active CEFDINIR 300 MG CAPS 1 po BID x 10 days CEFDINIR 71098123819 No Longer Active Rodrigo Sarah APRN Active CEFTIN 500 MG TAB 1 twice a day CEFUROXIME AXETIL 29170677786 No Longer Active Gab Padron MD Active AZITHROMYCIN 250 MG TABS 2 po qd x 1 day, then 1 po qd x 4 days AZITHROMYCIN 16386052094 No Longer Active Rodrigo Sarah APRN Active OXYCODONE HCL 5 MG ORAL CAPS 1 TAB PO Q HS OXYCODONE HCL 49276441628 No Longer Active Rodrigo Sarah APRN Active NIASPAN 500 MG ORAL CR-TABS 1 pill nightly x 1 week, then 2 pills nightly x 1 week, then 3 pills nightly x 1 week, then 4 pills nightly NIACIN (ANTIHYPERLIPIDEMIC) 52811333426 No Longer Active Rodrigo Sarah APRN Active NIACIN 500 MG TABS 1 pill by mouth nightly x 1 week, then 2 pills x 1 week, then 3 pills x 1 week, then 4 pills nightly - take after evening meal, with applesauce or an apple NIACIN 67041693711 No Longer Active Yolande Lindsay MD PhD Active TRIAMCINOLONE ACETONIDE 0.1 % CREA apply bid sparingly to rash TRIAMCINOLONE ACETONIDE 65451098203 Active Yolande Lindsay MD PhD Active FUROSEMIDE 20 MG TAB 1 tablet by mouth daily FUROSEMIDE 52416949682 Active Gab Padron MD Active LISINOPRIL 20 MG ORAL TABS 1 tab by mouth daily LISINOPRIL 48952454222 Active Gab Padron MD Active FUROSEMIDE 20 MG TABS 1 pill by mouth daily, for edema FUROSEMIDE 33285815976 No Longer Active Yolande Lindsay MD PhD Active ATORVASTATIN CALCIUM 10 MG TABS 1 pill by mouth daily, for cholesterol 09/06 ATORVASTATIN CALCIUM 86781673517 Active Gab Padron MD Active CALCIUM 600+D PLUS MINERALS 600-400 MG-UNIT ORAL CHEW 1 tab by mouth daily CALCIUM CARBONATE-VIT D-MIN 27120376590 No Longer Active Yolande Lindsay MD PhD Active CYCLOBENZAPRINE HCL 10 MG TABS 1 tablet by mouth three times daily as needed for muscle spasm/pain CYCLOBENZAPRINE HCL 54316315553 Active Yolande Lindsay MD PhD Active ADULT ASPIRIN EC LOW STRENGTH 81 MG TBEC Take 1 tablet by mouth daily 2014 ASPIRIN 34684595078 No Longer Active Yolande Lindsay MD PhD Active ZOFRAN ODT 4 MG TBDP 1 pill dissolved by mouth every 4 hours if needed for nausea ONDANSETRON 15869869092 No Longer Active Yolande Lindsay MD PhD Active CEFTIN 500 MG TAB 1 twice a day CEFUROXIME AXETIL 67436676984 No Longer Active Yolande Lindsay MD PhD Active ALBUTEROL SULFATE 0.083 % NEBU SOLN one vial per nebulizer every 4-6 hours as needed ALBUTEROL SULFATE 96896659930 No Longer Active Alexis Ordaz MD Active DOXYCYCLINE HYCLATE 100 MG CAP 1 cap by mouth twice daily DOXYCYCLINE HYCLATE 20872440258 No Longer Active Yolande Lindsay MD PhD Active CYCLOBENZAPRINE HCL 10 MG TABS 1/2 - 1 tab by mouth three times daily if needed for spasms/pain CYCLOBENZAPRINE HCL 53584156782 No Longer Active Yolande Lindsay MD PhD Active AZITHROMYCIN 250 MG TABS 2 pills on day 1, then 1 pill daily x 4 days AZITHROMYCIN 61577489046 No Longer Active Yolande Lindsay MD PhD Active XOPENEX 1.25 MG/3ML NEBU 1 neb every 4 hours if needed for cough/congestion LEVALBUTEROL HCL 12127739002 No Longer Active Yolande Lindsay MD PhD Active DOXYCYCLINE HYCLATE 100 MG TAB 1 tab twice a day for 14 days 2013 DOXYCYCLINE HYCLATE 25952283673 No Longer Active Yolande Lindsay MD PhD Active PREVACID 30 MG CPDR Take 1 tablet by mouth daily-PRN LANSOPRAZOLE 75791982997 No Longer Active Yolande Lindsay MD PhD Active PA VITAMIN D-3 2000 UNIT CAPS 1 CAP PO DAILY CHOLECALCIFEROL 32135819842 No Longer Active Yolande Lindsay MD PhD Active CEFDINIR 300 MG CAPS by mouth twice a day CEFDINIR 90934800964 No Longer Active Gab Padron MD Active TOPAMAX 50 MG TABS 1 PO twice daily TOPIRAMATE 32233537522 Active Yolande Lindsay MD PhD Active AZITHROMYCIN 250 MG TABS 2 po qd x 1 day, then 1 po qd x 4 days AZITHROMYCIN 44742694881 No Longer Active Yolande Lindsay MD PhD Active DICLOFENAC SODIUM 75 MG TBEC 1 tablet by q 12 hours PRN headaches DICLOFENAC SODIUM 71146577910 No Longer Active Yolande Lindsay MD PhD Active FLONASE 50 MCG/ACT SUSP 1 spray each nostril am and hs FLUTICASONE PROPIONATE 43865678684 No Longer Active Todd Callaway MD Active ANUSOL-HC 25 MG SUPPOSITORY 1 rectally twice a day as needed for hemorrhoids HYDROCORTISONE JAYDEN (RECTAL) 04004355520 No Longer Active Yolande Lindsay MD PhD Active ANUSOL-HC 25 MG SUPPOSITORY 1 suppository rectally each evening as needed for anal fissure HYDROCORTISONE JAYDEN (RECTAL) 60750263360 No Longer Active LONNIE Iglesias Active VALIUM 5 MG TAB 1 po 30 minutes prior to your MRI DIAZEPAM 98671798495 No Longer Active LONNIE Iglesias Active METHOCARBAMOL 750 MG TABS 1 PO QID PRN METHOCARBAMOL 42479276812 No Longer Active Daphne Wetzel APRN Active NITROSTAT 0.4 MG SUBL as directed NITROGLYCERIN 28617701156 No Longer Active Rodrigo Sarah APRN Active ROBAXIN-750 750 MG TABS 2 four times a day for 3 days as needed for muscle spasm, then 1 four times a day as needed METHOCARBAMOL 61148070532 No Longer Active Rodrigo Sarah APRN Active HYDROCODONE-ACETAMINOPHEN 5-325 MG TABS 1 q 4-6 hrs prn HYDROCODONE-ACETAMINOPHEN 53342189479 No Longer Active Rodrigo Sarah SLIP COVER OPERATOR Active VERAPAMIL HCL CR 180 MG CR-TABS TAKE 1 TAB DAILY VERAPAMIL HCL 25810692981 No Longer Active Yolande Lindsay MD PhD Active BACTRIM DS 800-160 MG TAB 1 tab by mouth twice daily TRIMETHOPRIM-SULFAMETHOXAZOLE 02573196803 No Longer Active Yolande Lindsay MD PhD Active NEXIUM 40 MG PACK 1 by mouth daily ESOMEPRAZOLE MAGNESIUM 60670566683 No Longer Active Des Hines MD Active EPIPEN 2-CHARLETTE 0.3 MG/0.3ML OMARI as need for allergic reaction EPINEPHRINE 92394480128 Active Yolande Lindsay MD PhD Active NEXIUM 40 MG CPDR 1 PO Q D DAY ESOMEPRAZOLE MAGNESIUM 99192808343 No Longer Active Sadia Perry RN Active NEXIUM 40 MG PACK 1 by mouth daily NEXIUM 40 MG PACK ESOMEPRAZOLE MAGNESIUM Inactive VERAPAMIL HCL CR 180 MG CR-TABS TAKE 1 TAB DAILY VERAPAMIL HCL CR 180 MG CR-TABS VERAPAMIL HCL Inactive HYDROCODONE-ACETAMINOPHEN 5-325 MG TABS 1 q 4-6 hrs prn HYDROCODONE-ACETAMINOPHEN 5-325 MG TABS 075810 HYDROCODONE-ACETAMINOPHEN Inactive ROBAXIN-750 750 MG TABS 2 four times a day for 3 days as needed for muscle spasm, then 1 four times a day as needed ROBAXIN-750 750 MG TABS 035234 METHOCARBAMOL Inactive NITROSTAT 0.4 MG SUBL as directed NITROSTAT 0.4 MG SUBL 915329 NITROGLYCERIN Inactive METHOCARBAMOL 750 MG TABS 1 PO QID PRN METHOCARBAMOL 750 MG TABS 050645 METHOCARBAMOL Inactive VALIUM 5 MG TAB 1 po 30 minutes prior to your MRI VALIUM 5 MG TAB 707256 DIAZEPAM Inactive ANUSOL-HC 25 MG SUPPOSITORY 1 suppository rectally each evening as needed for anal fissure ANUSOL-HC 25 MG SUPPOSITORY 3814931 HYDROCORTISONE JAYDEN (RECTAL) Inactive ANUSOL-HC 25 MG SUPPOSITORY 1 rectally twice a day as needed for hemorrhoids ANUSOL-HC 25 MG SUPPOSITORY 4775891 HYDROCORTISONE JAYDEN (RECTAL) Inactive FLONASE 50 MCG/ACT SUSP 1 spray each nostril am and hs FLONASE 50 MCG/ACT SUSP 6790376 FLUTICASONE PROPIONATE Inactive DICLOFENAC SODIUM 75 MG TBEC 1 tablet by q 12 hours PRN headaches DICLOFENAC SODIUM 75 MG TBEC 904449 DICLOFENAC SODIUM Inactive PA VITAMIN D-3 2000 UNIT CAPS 1 CAP PO DAILY PA VITAMIN D-3 2000 UNIT CAPS CHOLECALCIFEROL Inactive PREVACID 30 MG CPDR Take 1 tablet by mouth daily-PRN PREVACID 30 MG CPDR 735544 LANSOPRAZOLE Inactive DOXYCYCLINE HYCLATE 100 MG TAB 1 tab twice a day for 14 days 2013 DOXYCYCLINE HYCLATE 100 MG TAB 0293154 DOXYCYCLINE HYCLATE Inactive XOPENEX 1.25 MG/3ML NEBU 1 neb every 4 hours if needed for cough/congestion XOPENEX 1.25 MG/3ML NEBU 933183 LEVALBUTEROL HCL Inactive CYCLOBENZAPRINE HCL 10 MG TABS 1/2 - 1 tab by mouth three times daily if needed for spasms/pain CYCLOBENZAPRINE HCL 10 MG TABS 203661 CYCLOBENZAPRINE HCL Inactive ALBUTEROL SULFATE 0.083 % NEBU SOLN one vial per nebulizer every 4-6 hours as needed ALBUTEROL SULFATE 0.083 % NEBU SOLN 394382 ALBUTEROL SULFATE Inactive CEFTIN 500 MG TAB 1 twice a day CEFTIN 500 MG TAB 193207 CEFUROXIME AXETIL Inactive ZOFRAN ODT 4 MG TBDP 1 pill dissolved by mouth every 4 hours if needed for nausea ZOFRAN ODT 4 MG TBDP 095704 ONDANSETRON Inactive ADULT ASPIRIN EC LOW STRENGTH 81 MG TBEC Take 1 tablet by mouth daily 2014 ADULT ASPIRIN EC LOW STRENGTH 81 MG TBEC 475266 ASPIRIN Inactive CALCIUM 600+D PLUS MINERALS 600-400 [...] or an apple NIACIN 500 MG TABS 452965 NIACIN Inactive NIASPAN 500 MG ORAL CR-TABS 1 pill nightly x 1 week, then 2 pills nightly x 1 week, then 3 pills nightly x 1 week, then 4 pills nightly NIASPAN 500 MG ORAL CR-TABS NIACIN (ANTIHYPERLIPIDEMIC) Inactive OXYCODONE HCL 5 MG ORAL CAPS 1 TAB PO Q HS OXYCODONE HCL 5 MG ORAL CAPS 6155761 OXYCODONE HCL Inactive FLUTICASONE PROPIONATE 50 MCG/ACT SUSP 1 to 2 sprays each nostril daily 04/21 FLUTICASONE PROPIONATE 50 MCG/ACT SUSP 7412309 FLUTICASONE PROPIONATE Inactive POLYTRIM 21389-5.1 UNIT/ML-% SOLN 1 gtt to affected eye q3h x 7 days POLYTRIM 73305-7.1 UNIT/ML-% SOLN 625087 POLYMYXIN B- TRIMETHOPRIM Inactive CHERATUSSIN AC 100-10 MG/5ML SYRP 1 tsp by mouth every 4 hours as needed for cough CHERATUSSIN AC 100-10 MG/5ML SYRP 020666 GUAIFENESIN-CODEINE Inactive LEVOTHYROXINE SODIUM 75 MCG TABS Take 1 tab daily LEVOTHYROXINE SODIUM 75 MCG TABS 491892 LEVOTHYROXINE SODIUM Inactive CLARITIN 10 MG TAB 1 tablet by mouth daily as needed for allergies CLARITIN 10 MG TAB 945985 LORATADINE Inactive FISH OIL 1000 MG CAPS 3 pills daily FISH OIL 1000 MG CAPS OMEGA-3 FATTY ACIDS Inactive ONDANSETRON 4 MG TBDP 1 q4h PRN nausea ONDANSETRON 4 MG TBDP 825365 ONDANSETRON Inactive ADVAIR DISKUS 250-50 MCG/DOSE AEPB 1 puff BID ADVAIR DISKUS 250-50 MCG/DOSE AEPB FLUTICASONE-SALMETEROL Inactive BACTRIM DS 800-160 MG TAB 1 tab by mouth twice daily BACTRIM DS 800-160 MG TAB 806780 TRIMETHOPRIM-SULFAMETHOXAZOLE Inactive AZITHROMYCIN 250 MG TABS 2 po qd x 1 day, then 1 po qd x 4 days AZITHROMYCIN 250 MG TABS 3311457 AZITHROMYCIN Inactive CEFDINIR 300 MG CAPS by mouth twice a day CEFDINIR 300 MG CAPS 202952 CEFDINIR Inactive AZITHROMYCIN 250 MG TABS 2 pills on day 1, then 1 pill daily x 4 days AZITHROMYCIN 250 MG TABS 6268011 AZITHROMYCIN Inactive DOXYCYCLINE HYCLATE 100 MG CAP 1 cap by mouth twice daily DOXYCYCLINE HYCLATE 100 MG CAP 1360394 DOXYCYCLINE HYCLATE Inactive FUROSEMIDE 20 MG TABS 1 pill by mouth daily, for edema FUROSEMIDE 20 MG TABS 488408 FUROSEMIDE Inactive AZITHROMYCIN 250 MG TABS 2 po qd x 1 day, then 1 po qd x 4 days AZITHROMYCIN 250 MG TABS 6380036 AZITHROMYCIN Inactive CEFTIN 500 MG TAB 1 twice a day CEFTIN 500 MG TAB 640897 CEFUROXIME AXETIL Inactive CEFDINIR 300 MG CAPS 1 po BID x 10 days CEFDINIR 300 MG CAPS 095968 CEFDINIR Inactive BACTRIM DS 800-160 MG TAB 1 tab by mouth twice daily BACTRIM DS 800-160 MG TAB 19820606 TRIMETHOPRIM-SULFAMETHOXAZOLE Inactive PREDNISONE 20 MG TAB 2 tabs daily for 3 days, 1 tab daily for 3 days, 1/2 tab daily for 2 days PREDNISONE 20 MG TAB 204049 PREDNISONE Inactive PREDNISONE 20 MG TAB take 3 tabs daily for 3 days, 2 tabs daily for 3 days, 1 tab daily for 3 days, 1/2 tab daily for 3 days PREDNISONE 20 MG TAB 665396 PREDNISONE Inactive BACTRIM DS 800-160 MG TAB 1 tab by mouth twice daily BACTRIM DS 800-160 MG TAB 19820606 TRIMETHOPRIM-SULFAMETHOXAZOLE Inactive Immunizations Vaccine Administration Date Value Standard Description Seasonal influenza vaccine, injectable, containing preservative, for > 3 years old (Afluria, FluLaval, Fluzone, Fluvirin, Fluarix, Agriflu(>=18 yo)) Fluzone (>3 yrs.) [[id number]] Influenza, seasonal, injectable influenza immunization (Flu Vax) has been administered Influenza - Unspecified Formulation [CVX88] influenza virus vaccine, unspecified formulation pneumococcal immunization administered Pneumovax 23 [CVX33] pneumococcal polysaccharide vaccine, 23 valent Seasonal influenza vaccine, injectable, containing preservative, for > 3 years old (Afluria, FluLaval, Fluzone, Fluvirin, Fluarix, Agriflu(>=18 yo)) Fluzone (>3 yrs.) [STS265] Influenza, seasonal, injectable dT (Diphtheria and Tetanus) booster given given Td(adult) unspecified formulation Boostrix (Tetanus toxoid, reduced diphtheria toxoid and acellular pertussis vaccine, adsorbed), booster Boostrix [IQF974] tetanus toxoid, reduced diphtheria toxoid, and acellular [...] PANEL - Chemistry cholesterol, serum 166 mg/dL 574-939 1093/12/06 triglyceride, serum, fasting 86 mg/dL 30-200 HDL [...] negative Encounters Code Encounter Date Provider Facility CPT-03638 Level 3 Est. Patient 14:46:09 CDT Tisha Lambert APRN [facility] CPT-27847 Level 4 New Patient 16:13:15 CDT Todd Callaway MD [facility] CPT-85156 Level 4 Est. Patient 13:18:33 CDT Gab Padron MD [facility] CPT-17839 Level 3 Est. Patient 15:20:50 CDT Jared Og MD [facility] CPT-83751 Level 3 Est. Patient 17:43:55 DIRECTOR OF CRITICAL CARE Gab Padron MD [facility] CPT-27866 Level 3 Est. Patient 17:07:49 DIRECTOR OF CRITICAL CARE Jared Og MD [facility] CPT-28859 Level 4 Est. Patient 19:55:18 DIRECTOR OF CRITICAL CARE Jared Og MD [facility] CPT-45479 Level 3 Est. Patient 20:13:34 DIRECTOR OF CRITICAL CARE Jared Og MD [facility] CPT-97195 Level 4 Est. Patient 16:31:27 CDT Gab Padron MD [facility] CPT-90952 Level 2 Est. Patient 12:23:38 CDT Jared Og MD [facility]-72614 Level 3 Est. Patient 11:01:51 CDT Gab Padron MD [facility]-70837 Level 3 Est. Patient 15:27:02 CDT Jared Og MD [facility]-73454 Level 4 Est. Patient 09:25:27 CDT Gab Padron MD [facility]-86249 Level 3 Est. Patient 10:29:41 CDT Rodrigo Sarah [facility]-25756 Level 4 Est. Patient 17:51:05 CDT Gab Padron MD [facility]-14347 Level 3 Est. Patient 14:18:08 CDT Gab Padron MD [facility]-96545 Level 4 Est. Patient 10:18:54 CDT Gab Padron MD [facility]-12804 Level 3 Est. Patient 11:30:07 CDT Rodrigo Sarah [facility] CPT-66433 Level 4 Est. Patient 21:02:30 DIRECTOR OF CRITICAL CARE Gab Padron MD [facility]-60155 Level 3 Est. Patient 11:02:19 DIRECTOR OF CRITICAL CARE Gab Pdaron MD [facility] CPT-02924 Level 4 Est. Patient 22:24:31 DIRECTOR OF CRITICAL CARE Gab Padron MD [facility] CPT-55477 Level 3 Est. Patient 18:33:46 DIRECTOR OF CRITICAL CARE Gab Padron MD [facility] CPT-71890 Level 3 Est. Patient 16:19:11 CDT Yolande Lindsay MD PhD [facility]-18971 Level 3 Est. Patient 18:59:14 CDT Yolande Lindsay MD [facility]-76574 Level 4 Est. Patient 21:29:26 CDT Yolande Lindsay MD [facility]-79048 Level 3 Est. Patient 07:37:45 CDT Yolande Lindsay MD [facility] CPT-61201 Level 3 Est. Patient 17:03:46 CDT Yolande Lindsay MD [facility]-91645 Level 4 Est. Patient 20:02:13 DIRECTOR OF CRITICAL CARE Yolande Lindsay MD [facility] CPT-84160 Level 3 Est. Patient 16:02:07 DIRECTOR OF CRITICAL CARE Alexis Ordaz MD [facility] CPT-98912 Level 3 Est. Patient 12:41:24 DIRECTOR OF CRITICAL CARE Yolande Lindsay MD [facility]-83714 Level 3 Est. Patient 15:41:20 DIRECTOR OF CRITICAL CARE Yolande Lindsay MD [facility]-10354 Level 3 Est. Patient 13:20:02 DIRECTOR OF CRITICAL CARE Yolande Lindsay MD [facility] CPT-83070 Level 3 Est. Patient 15:00:38 CDT Jared Og MD [facility]-65578 Level 3 Est. Patient 10:22:32 CDT Yolande Lindsay MD [facility] CPT-47988 Level 3 Est. Patient 17:12:58 CDT Yolande Lindsay MD [facility] CPT-60304 Level 4 Est. Patient 13:30:58 CDT Yolande Lindsay MD [facility] CPT-14719 Level 4 New Patient 09:02:42 CDT Jared Og MD [facility] CPT-67176 Level 3 Est. Patient 08:19:07 CDT Yolande Lindsay MD [facility]-93807 Level 3 Est. Patient 12:00:13 DIRECTOR OF CRITICAL CARE Gab Padron MD [facility] CPT-24941 Level 3 Est. Patient 16:15:23 DIRECTOR OF CRITICAL CARE Yolande Lindsay MD [facility]-13323 Level 2 Est. Patient 19:47:15 CDT Yolande Lindsay MD [facility]-37435 Level 3 Est. Patient 21:38:31 CDT Yolande Lindsay MD [facility]-79339 Level 3 Est. Patient 10:25:12 CDT Adiel PERAZA [facility]-99438 Level 4 Est. Patient 10:51:58 CDT Yolande Lindsay MD [facility]-39809 Level 3 Est. Patient 14:04:55 DIRECTOR OF CRITICAL CARE Rodrigo Sarah [facility]-24011 Level 3 Est. Patient 10:46:35 DIRECTOR OF CRITICAL CARE Rodrigo Sarah [facility]-84255 Level 3 Est. Patient 14:24:37 DIRECTOR OF CRITICAL CARE Yolande Lindsay MD [facility]-67754 Level 3 Est. Patient 17:41:58 DIRECTOR OF CRITICAL CARE Yolande Lindsay MD [facility]-63873 Level 2 Est. Patient 22:01:41 DIRECTOR OF CRITICAL CARE Rodrigo Sarah [facility]-16070 Level 2 Est. Patient 22:01:11 DIRECTOR OF CRITICAL CARE Rodrigo Sarah [facility]-38486 Level 3 Est. Patient 10:12:29 DIRECTOR OF CRITICAL CARE oRdrigo Sarah [facility]-36170 Level 3 Est. Patient 11:05:44 CDT Alexis Ordaz MD [facility]-62048 Level 3 Est. Patient 14:57:20 CDT Yolande Lindsay MD [facility]-79921 Level 3 Est. Patient 14:40:57 CDT Yolande Lindsay MD [facility]-09910 Level 3 Est. Patient 20:55:40 CDT Yolande Lindsay MD PhD [facility] CPT-80909 Level 3 Est. Patient 12:42:38 DIRECTOR OF CRITICAL CARE Yolande Lindsay MD PhD [facility] CPT-68227 Level 3 Est. Patient 11:54:49 DIRECTOR OF CRITICAL CARE Des Hines MD [facility] CPT-52530 Level 3 Est. Patient 17:06:[address] [facility] Procedures Code Procedure Name Date Entry Date Standard Description CPT-J2930 Solu Medrol 125 mg (Methyl Prednisolone Sodium Succinate) 13:19:02 CDT CPT-33184 Abx/Therapy Injection 13:19:02 CDT CPT-J2930 Solu Medrol 125 mg (Methyl Prednisolone Sodium Succinate) 13:05:03 CDT CPT-84188 Hip, complete, 2-3 views - XRAY USE ONLY 17:19:04 DIRECTOR OF CRITICAL CARE CPT-20809 Venipuncture Draw Fee 08:37:59 DIRECTOR OF CRITICAL CARE CPT-19905 Liver Profile - LAB USE ONLY 08:37:59 DIRECTOR OF CRITICAL CARE CPT-75706 Lipid - LAB USE ONLY 08:37:58 DIRECTOR OF CRITICAL CARE CPT-88002 First Vx - Ix admin via ID IM or jet injects without counseling by physician 11:52:31 CDT CPT-57056 Fluzone Preservative Free Intramuscular Suspension 11:52 :31 CDT CPT-24169 Foot, left, comp min 3V - XRAY USE ONLY 09:24:54 CDT CPT-54280 Abd single AP View - XRAY USE ONLY 11:16:17 CDT CPT-45700 T spine AP/ Lat - XRAY USE ONLY 09:34:21 CDT CPT-74249 Chest 2V Frontal and Lat - XRAY USE ONLY 10:48:51 CDT CPT-92817 LS spine comp w obliq 13:28:00 DIRECTOR OF CRITICAL CARE CPT-J1040 Depo Medrol 80 mg (Methyl Prednisolone Acetate) 10:51: 28 DIRECTOR OF CRITICAL CARE CPT-J1100 Decadron 8mg (Dexamethasone) 10:51:28 DIRECTOR OF CRITICAL CARE CPT-12422 Abx/Therapy Injection 10:51:28 DIRECTOR OF CRITICAL CARE CPT-J1100 Decadron 8mg (Dexamethasone) 21:02:30 DIRECTOR OF CRITICAL CARE CPT-J1040 Depo Medrol 80 mg (Methyl Prednisolone Acetate) 21:02: 30 DIRECTOR OF CRITICAL CARE [id number] Event Monitor - MC Transmission 09:12:32 CDT 08/06 [id number] Event Monitor - MC review and interp 09:12:32 CDT [id number] Event Monitor - MC recording 09:12:32 CDT CPT-20336 EKG Trac and Interp 16:50:22 CDT CPT-J1030 Depo Medrol 40 mg (Methyl Prednisolone Acetate) 17:05: 54 CDT CPT-J1100 Decadron 4mg (Dexamethasone) 17:05:54 CDT CPT-76278 Abx/Therapy Injection 17:05:54 CDT CPT-J1100 Decadron 4mg (Dexamethasone) 16:55:28 CDT CPT-J1030 Depo Medrol 40 mg (Methyl Prednisolone Acetate) 16:55: 28 CDT CPT-29279 Ankle Complete - Min 3V 15:58:50 CDT CPT-79460 Knee 3V 15:58:50 CDT CPT-71941 Hip comp min 2V 15:58:50 CDT CPT-J2270 Morphine Sulfate 10 mg 14:25:44 DIRECTOR OF CRITICAL CARE CPT-J2550 Phenergan 12.5 mg (Promethazine) 14:25:44 DIRECTOR OF CRITICAL CARE CPT-49736 Abx/Therapy Injection 14:25:44 DIRECTOR OF CRITICAL CARE CPT-J2550 Phenergan 12.5 mg (Promethazine) 14:08:03 DIRECTOR OF CRITICAL CARE CPT-J2270 Morphine Sulfate 10 mg 14:08:03 DIRECTOR OF CRITICAL CARE CPT-11091 Bladder Scan 15:00:38 CDT CPT-TCMM Transitional Care Mgmt-Moderate 09:52:22 CDT CPT-J1030 Depo Medrol 40 mg (Methyl Prednisolone Acetate) 10:55: 18 CDT CPT-J1100 Decadron 4mg (Dexamethasone) 10:55:18 CDT CPT-13895 Abx/Therapy Injection 10:55:18 CDT CPT-J1030 Depo Medrol 40 mg (Methyl Prednisolone Acetate) 10:22: 32 CDT CPT-J1100 Decadron 4mg (Dexamethasone) 10:22:32 CDT CPT-82753 Postop F/U Visit 14:37:13 CDT CPT-08980 Ankle Complete - Min 3V 17:11:58 CDT CPT-70723 Foot comp min 3V 17:11:58 CDT CPT-86755 Bladder Scan 09:56:58 CDT CPT-54094 Postop F/U Visit 09:56:58 CDT CPT-60566 Cystoscopy 09:02:42 CDT CPT-44859 Bladder Scan 09:02:42 CDT CPT-64480 Abd single AP View 16:00:35 CDT CPT-66793 Administration single or combination vaccine inc oral 10 :15:43 CDT CPT-75727 Influenza split virus > age 3 10:15:43 CDT CPT-64905 Nail Avulsion 09:24:57 CDT CPT-OV Office Visit 11:15:41 CDT CPT-69378 Abx/Therapy Injection 10:51:30 CDT CPT-J3301 Kenalog 40 mg (Triamcinolone Acetonide) 10:25:12 CDT CPT-J1100 Decadron 4mg (Dexamethasone) 10:25:12 CDT CPT-01910 Anoscopy diagnostic 10:36:12 CDT CPT-OV Office Visit 15:34:31 CDT CPT-82462 Abx/Therapy Injection 08:21:15 DIRECTOR OF CRITICAL CARE CPT-J1885 Toradol 60 mg (Ketorolac) 10:46:35 DIRECTOR OF CRITICAL CARE CPT-OV Office Visit 19:51:16 DIRECTOR OF CRITICAL CARE CPT-49582 Spec Collection and Handling Fee 14:34:18 DIRECTOR OF CRITICAL CARE CPT-PV Prev. Care Visit 14:19:18 DIRECTOR OF CRITICAL CARE CPT-95021 Postop F/U Visit 14:47:51 DIRECTOR OF CRITICAL CARE CPT-06459 Postop F/U Visit 15:15:14 DIRECTOR OF CRITICAL CARE CPT-11631 Postop F/U Visit 14:41:43 CDT CPT-03456 Postop F/U Visit 15:47:46 CDT CPT-OV Office Visit 15:27:23 CDT CPT-OV Office Visit 17:20:34 CDT CPT-58814 Abx/Therapy Injection 15:05:57 CDT CPT-J1100 Decadron 8mg (Dexamethasone) 14:44:57 CDT CPT-J1040 Depo Medrol 80 mg (Methyl Prednisolone Acetate) 14:44: 57 CDT CPT-JTINJ Joint Injection 10:17:37 CDT CPT-30849 Administration 2+ single or combination vaccines inc oral 13:01:46 DIRECTOR OF CRITICAL CARE CPT-61319 Administration single or combination vaccine inc oral 13 :01:46 DIRECTOR OF CRITICAL CARE CPT-58948 Pneumovax 13:01:46 DIRECTOR OF CRITICAL CARE CPT-95239 Influenza split virus > age 3 13:01:46 DIRECTOR OF CRITICAL CARE CPT-64902 Administration single or combination vaccine inc oral 08 :56:49 CDT CPT-36631 Tdap 08:56:49 CDT
--- OUTSIDE RECORDS SUMMARY | 2017-03-21 23:34 | XMS REPORT ---
Author Author [facility] Medical Staff Organization [facility] Address [address] [id number] Phone [phone] Care Team Providers Care Lease Administration Analyst Name Role Phone EVELYN SPEARS MD PP [phone] Summary purpose TRANSITION OF CARE AUTO GENERATION [...]
--- OUTSIDE RECORDS SUMMARY | 2017-03-21 23:34 | XMS REPORT | Clinical Summary ---
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 TRAZODONE HCL sees things Critical Active [...] SURGERY MUSCULOSKEL SYSTEM NEC V58.78 Resolved Todd Callwaay MD Aftercare following surgery of the musculoskeletal [...] Elder Asthma, unspecified Flank pain 789.09 Resolved Yoalnde Lindsay MD PhD Abdominal pain, other [...] PhD Rash and other nonspecific skin eruption FOOT PAIN, RIGHT ICD-729.5 Inactive Yolande Lindsay [...] Patient Instruction TRIAMCINOLONE ACETONIDE 0.1 % CREA apply bid sparingly to rash TRIAMCINOLONE ACETONIDE 82638778176 Active Yolande Lindsay MD PhD Active FUROSEMIDE 20 MG TAB 1 tablet by mouth daily FUROSEMIDE 69063326673 Active Yolande Lindsay MD PhD Active LISINOPRIL 20 MG ORAL TABS 1 tab by mouth daily LISINOPRIL 78367940301 Active Yolande Lindsay MD PhD Active FUROSEMIDE 20 MG TABS 1 pill by mouth daily, for edema FUROSEMIDE 89295097974 No Longer Active Yolande Lindsay MD PhD Active FISH OIL 1000 MG CAPS 1 pill daily x 1 week, then 2 pills daily x 1 week, then 3 pills daily x 1 week, then 4 pills daily OMEGA-3 FATTY ACIDS 29186175553 Active Yolande Lindsay MD PhD Active NIACIN 500 MG TABS 1 pill by mouth nightly x 1 week, then 2 pills x 1 week, then 3 pills x 1 week, then 4 pills nightly - take after evening meal, with applesauce or an apple NIACIN 24446773342 Active Yolande Lindsay MD PhD Active ATORVASTATIN CALCIUM 10 MG TABS 1 pill by mouth daily, for cholesterol 09/06 ATORVASTATIN CALCIUM 71133659384 Active Yolande Lindsay MD PhD Active CALCIUM 600+D PLUS MINERALS 600-400 MG-UNIT ORAL CHEW 1 tab by mouth daily CALCIUM CARBONATE-VIT D-MIN 61875950359 No Longer Active Yolande Lindsay MD PhD Active CYCLOBENZAPRINE HCL 10 MG TABS 1 tablet by mouth three times daily as needed for muscle spasm/pain CYCLOBENZAPRINE HCL 80259890973 Active Yolande Lindsay MD PhD Active ONDANSETRON 4 MG TBDP 1 q4h PRN nausea ONDANSETRON 77522593307 Active Yolande Lindsay MD PhD Active ADULT ASPIRIN EC LOW STRENGTH 81 MG TBEC Take 1 tablet by mouth daily 2014 ASPIRIN 63142381542 No Longer Active Yolande Lindsay MD PhD Active ZOFRAN ODT 4 MG TBDP 1 pill dissolved by mouth every 4 hours if needed for nausea ONDANSETRON 04031773514 No Longer Active Yolande Lindsay MD PhD Active CEFTIN 500 MG TAB 1 twice a day CEFUROXIME AXETIL 45230742896 No Longer Active Yolande Lindsay MD PhD Active ALBUTEROL SULFATE 0.083 % NEBU SOLN one vial per nebulizer every 4-6 hours as needed ALBUTEROL SULFATE 72499865975 No Longer Active Alexis Ordaz MD Active DOXYCYCLINE HYCLATE 100 MG CAP 1 cap by mouth twice daily DOXYCYCLINE HYCLATE 95327663157 No Longer Active Yolande Lindsay MD PhD Active CYCLOBENZAPRINE HCL 10 MG TABS 1/2 - 1 tab by mouth three times daily if needed for spasms/pain CYCLOBENZAPRINE HCL 34410784647 No Longer Active Yolande Lindsay MD PhD Active TRILEPTAL 600 MG TABS Take one 1/2 tablet in Am and 1 tablet at night OXCARBAZEPINE 13619221265 Active oYlande Lindsay MD PhD Active AZITHROMYCIN 250 MG TABS 2 pills on day 1, then 1 pill daily x 4 days AZITHROMYCIN 17248719699 No Longer Active Yolande Lindsay MD PhD Active XOPENEX 1.25 MG/3ML NEBU 1 neb every 4 hours if needed for cough/congestion LEVALBUTEROL HCL 07221175956 No Longer Active Yolande Lindsay MD PhD Active DOXYCYCLINE HYCLATE 100 MG TAB 1 tab twice a day for 14 days 2013 DOXYCYCLINE HYCLATE 32448496096 No Longer Active Yolande Lindsay MD PhD Active LEVOTHYROXINE SODIUM 75 MCG TABS Take 1 tab daily LEVOTHYROXINE SODIUM 26643930540 Active Yolande Lindsay MD PhD Active PREVACID 30 MG CPDR Take 1 tablet by mouth daily-PRN LANSOPRAZOLE 46255162531 No Longer Active Yolande Lindsay MD PhD Active PA VITAMIN D-3 2000 UNIT CAPS 1 CAP PO DAILY CHOLECALCIFEROL 79796243565 No Longer Active Yolande Lindsay MD PhD Active CEFDINIR 300 MG CAPS by mouth twice a day CEFDINIR 16817329269 No Longer Active Gab Padron MD Active TOPAMAX 50 MG TABS 1 PO twice daily TOPIRAMATE 27152513185 Active Yolande Lindsay MD PhD Active AZITHROMYCIN 250 MG TABS 2 po qd x 1 day, then 1 po qd x 4 days AZITHROMYCIN 41308749299 No Longer Active Yolande Lindsay MD PhD Active DICLOFENAC SODIUM 75 MG TBEC 1 tablet by q 12 hours PRN headaches DICLOFENAC SODIUM 19631117646 No Longer Active Yolande Lindsay MD PhD Active FLONASE 50 MCG/ACT SUSP 1 spray each nostril am and hs FLUTICASONE PROPIONATE 57010698765 No Longer Active Todd Callaway MD Active ANUSOL-HC 25 MG SUPPOSITORY 1 rectally twice a day as needed for hemorrhoids HYDROCORTISONE JAYDEN (RECTAL) 01388079643 No Longer Active Yolande Lindsay MD PhD Active ANUSOL-HC 25 MG SUPPOSITORY 1 suppository rectally each evening as needed for anal fissure HYDROCORTISONE JAYDEN (RECTAL) 18045525259 No Longer Active LONNIE Iglesias Active VALIUM 5 MG TAB 1 po 30 minutes prior to your MRI DIAZEPAM 38658901972 No Longer Active LONNIE Iglesias Active METHOCARBAMOL 750 MG TABS 1 PO QID PRN METHOCARBAMOL 97344215056 No Longer Active Daphne Wetzel APRN Active NITROSTAT 0.4 MG SUBL as directed NITROGLYCERIN 92054961241 No Longer Active Rodrigo Sarah APRN Active ROBAXIN-750 750 MG TABS 2 four times a day for 3 days as needed for muscle spasm, then 1 four times a day as needed METHOCARBAMOL 99942074014 No Longer Active Rodrigo Sarah APRN Active HYDROCODONE-ACETAMINOPHEN 5-325 MG TABS 1 q 4-6 hrs prn HYDROCODONE-ACETAMINOPHEN 15496866083 No Longer Active Rodrigo Sarah APRN Active VERAPAMIL HCL CR 180 MG CR-TABS TAKE 1 TAB DAILY VERAPAMIL HCL 89454449690 No Longer Active Yolande Lindsay MD PhD Active BACTRIM DS 800-160 MG TAB 1 tab by mouth twice daily TRIMETHOPRIM-SULFAMETHOXAZOLE 40285077097 No Longer Active Yolande Lindsay MD PhD Active NEXIUM 40 MG PACK 1 by mouth daily ESOMEPRAZOLE MAGNESIUM 78038815499 No Longer Active Des Hines MD Active EPIPEN 2-CHARLETTE 0.3 MG/0.3ML OMARI as need for allergic reaction EPINEPHRINE 72977291226 Active Yolande Lindsay MD PhD Active NEXIUM 40 MG CPDR 1 PO Q D DAY ESOMEPRAZOLE MAGNESIUM 60224570334 No Longer Active Sadia Perry RN Active NEXIUM 40 MG PACK 1 by mouth daily NEXIUM 40 MG PACK ESOMEPRAZOLE MAGNESIUM Inactive VERAPAMIL HCL CR 180 MG CR-TABS TAKE 1 TAB DAILY VERAPAMIL HCL CR 180 MG CR-TABS VERAPAMIL HCL Inactive HYDROCODONE-ACETAMINOPHEN 5-325 MG TABS 1 q 4-6 hrs prn HYDROCODONE-ACETAMINOPHEN 5-325 MG TABS 764762 HYDROCODONE-ACETAMINOPHEN Inactive ROBAXIN-750 750 MG TABS 2 four times a day for 3 days as needed for muscle spasm, then 1 four times a day as needed ROBAXIN-750 750 MG TABS 876032 METHOCARBAMOL Inactive NITROSTAT 0.4 MG SUBL as directed NITROSTAT 0.4 MG SUBL NITROGLYCERIN Inactive METHOCARBAMOL 750 MG TABS 1 PO QID PRN METHOCARBAMOL 750 MG TABS 606194 METHOCARBAMOL Inactive VALIUM 5 MG TAB 1 po 30 minutes prior to your MRI VALIUM 5 MG TAB 399226 DIAZEPAM Inactive ANUSOL-HC 25 MG SUPPOSITORY 1 suppository rectally each evening as needed for anal fissure ANUSOL-HC 25 MG SUPPOSITORY 6564673 HYDROCORTISONE JAYDEN (RECTAL) Inactive ANUSOL-HC 25 MG SUPPOSITORY 1 rectally twice a day as needed for hemorrhoids ANUSOL-HC 25 MG SUPPOSITORY 8698056 HYDROCORTISONE JAYDEN (RECTAL) Inactive FLONASE 50 MCG/ACT SUSP 1 spray each nostril am and hs FLONASE 50 MCG/ACT SUSP 894854 FLUTICASONE PROPIONATE Inactive DICLOFENAC SODIUM 75 MG TBEC 1 tablet by q 12 hours PRN headaches DICLOFENAC SODIUM 75 MG TBEC 605602 DICLOFENAC SODIUM Inactive PA VITAMIN D-3 2000 UNIT CAPS 1 CAP PO DAILY PA VITAMIN D-3 2000 UNIT CAPS CHOLECALCIFEROL Inactive PREVACID 30 MG CPDR Take 1 tablet by mouth daily-PRN PREVACID 30 MG CPDR 872829 LANSOPRAZOLE Inactive DOXYCYCLINE HYCLATE 100 MG TAB 1 tab twice a day for 14 days 2013 DOXYCYCLINE HYCLATE 100 MG TAB 8448709 DOXYCYCLINE HYCLATE Inactive XOPENEX 1.25 MG/3ML NEBU 1 neb every 4 hours if needed for cough/congestion XOPENEX 1.25 MG/3ML NEBU 776787 LEVALBUTEROL HCL Inactive CYCLOBENZAPRINE HCL 10 MG TABS 1/2 - 1 tab by mouth three times daily if needed for spasms/pain CYCLOBENZAPRINE HCL 10 MG TABS 936994 CYCLOBENZAPRINE HCL Inactive ALBUTEROL SULFATE 0.083 % NEBU SOLN one vial per nebulizer every 4-6 hours as needed ALBUTEROL SULFATE 0.083 % NEBU SOLN 058081 ALBUTEROL SULFATE Inactive CEFTIN 500 MG TAB 1 twice a day CEFTIN 500 MG TAB 871246 CEFUROXIME AXETIL Inactive ZOFRAN ODT 4 MG TBDP 1 pill dissolved by mouth every 4 hours if needed for nausea ZOFRAN ODT 4 MG TBDP 151554 ONDANSETRON Inactive ADULT ASPIRIN EC LOW STRENGTH 81 MG TBEC Take 1 tablet by mouth daily 2014 ADULT ASPIRIN EC LOW STRENGTH 81 MG TBEC 229666 ASPIRIN Inactive CALCIUM 600+D PLUS MINERALS 600-400 [...] x 4 days AZITHROMYCIN 250 MG TABS 8689599 AZITHROMYCIN Inactive CEFDINIR 300 MG CAPS by mouth twice a day CEFDINIR 300 MG CAPS 560973 CEFDINIR Inactive AZITHROMYCIN 250 MG TABS 2 pills on day 1, then 1 pill daily x 4 days AZITHROMYCIN 250 MG TABS 0243529 AZITHROMYCIN Inactive DOXYCYCLINE HYCLATE 100 MG CAP 1 cap by mouth twice daily DOXYCYCLINE HYCLATE 100 MG CAP 2971002 DOXYCYCLINE HYCLATE Inactive FUROSEMIDE 20 MG TABS 1 pill by mouth daily, for edema FUROSEMIDE 20 MG TABS 861744 FUROSEMIDE Inactive Immunizations Vaccine Administration Date Value Standard Description Seasonal influenza vaccine, injectable, containing preservative, for > 3 years old (Afluria, FluLaval, Fluzone, Fluvirin, Fluarix, Agriflu(>=18 yo)) Fluzone (>3 yrs.) [LBP733] Influenza, seasonal, injectable influenza immunization (Flu Vax) has been administered Influenza - Unspecified Formulation [CVX88] influenza virus vaccine, unspecified formulation Seasonal influenza vaccine, injectable, containing preservative, for > 3 years old (Afluria, FluLaval, Fluzone, Fluvirin, Fluarix, Agriflu(>=18 yo)) Fluzone (>3 yrs.) [IYH666] Influenza, seasonal, injectable pneumococcal immunization administered Pneumovax 23 [CVX33] pneumococcal polysaccharide vaccine, 23 valent dT (Diphtheria and Tetanus) booster given given Td(adult) unspecified formulation Boostrix (Tetanus toxoid, reduced diphtheria toxoid and acellular pertussis vaccine, adsorbed), booster Boostrix [YHF037] tetanus toxoid, reduced diphtheria toxoid, and acellular [...] mg/dL Chart Maintenance: Outside labs entered on [employer]heet - Hematology leukocyte count, blood 6.1 10*3/mm3 hemoglobin, blood 11.0 g/dL platelet count 175 10*3/mm3 Lab Report: Basic Metabolic Panel - Chemistry sodium, serum 145 mmol/L [phone]/06/22 potassium, serum 3.9 mmol/L 3.5-5.2 chloride, serum 109 mmol/L 98-107 carbon dioxide, venous blood 23.4 mmol/L 21.0-32.0 blood glucose 92 mg/dL 65-110 calcium, serum 8.2 mg/dL 8.5-10.1 urea nitrogen, blood 24 mg/dL 7-18 creatinine, serum 1.30 mg/dL 0.60-1.30 Lab Report: Cardio IQ Advanced Lipid and Inlammation Panel /67046 - Chemistry cholesterol, serum 198 mg/dL 136-870 8575/04/30 HDL cholesterol, serum 65 mg/dL > OR=46 triglyceride, serum, fasting 82 mg/dL LDL cholesterol, serum 117 mg/dL cholesterol/HDL ratio, serum 3.0 calc < OR=5.0 Lab Report: CBC W/DIFF, Basic Metabolic Panel - Chemistry sodium, serum 144 mmol/L 646-612 6161/01/21 potassium, serum 4.2 mmol/L 3.5-5.2 chloride, serum [...] Panel - Chemistry sodium, serum 144 mmol/L 035-617 9469/12/15 potassium, serum 5.4 mmol/L 3.5-5.2 chloride, serum [...] UA - Chemistry sodium, serum 143 mmol/L 572-506 5347/10/24 potassium, serum 3.9 mmol/L 3.5-5.2 chloride, serum [...] 51 mg/dL 30-200 cholesterol, serum 173 mg/dL 449-477 8599/04/28 HDL cholesterol, serum 63 mg/dL 32-96 LDL [...] 0-19 Encounters Code Encounter Date Provider Facility CPT-82622 Level 3 Est. Patient 18:59:14 CDT Yolande Lindsay MD [facility] CPT-17579 Level 4 Est. Patient 21:29:26 CDT Yolande Lindsay MD [facility]-88600 Level 3 Est. Patient 07:37:45 CDT Yolande Lindsay MD [facility]-59115 Level 3 Est. Patient 17:03:46 CDT Yolande Lindsay MD [facility] CPT-63048 Level 4 Est. Patient 20:02:13 [employer] Yolande Lindsay MD [facility] CPT-89125 Level 3 Est. Patient 16:02:07 [employer] Alexis Ordaz MD [facility] CPT-64308 Level 3 Est. Patient 12:41:24 [employer] Yolande Lindsay MD [facility] CPT-04751 Level 3 Est. Patient 15:41:20 [employer] Yolande Lindsay MD [facility] CPT-06009 Level 3 Est. Patient 13:20:02 [employer] Yolande Lindsay MD [facility] CPT-22595 Level 3 Est. Patient 15:00:38 CDT Jared Og MD [facility]-06387 Level 3 Est. Patient 10:22:32 CDT Yolande Lindsay MD [facility] CPT-17051 Level 3 Est. Patient 17:12:58 CDT Yolande Lindsay MD [facility] CPT-44234 Level 4 Est. Patient 13:30:58 CDT Yolande Lindsay MD [facility] CPT-94831 Level 4 New Patient 09:02:42 CDT Jared Og MD [facility] CPT-55420 Level 3 Est. Patient 08:19:07 CDT Yolande Lindsay MD [facility] [place]-41270 Level 3 Est. Patient 12:00:13 [employer] Gab Padron MD [facility]-49810 Level 3 Est. Patient 16:15:23 [employer] Yolande Lindsay MD [facility] [place]-28325 Level 2 Est. Patient 19:47:15 CDT Yolande Lindsay MD [facility] CPT-17517 Level 3 Est. Patient 21:38:31 CDT Yolande Lindsay MD [facility] CPT-37587 Level 3 Est. Patient 10:25:12 CDT Adiel PERAZA [facility] CPT-84774 Level 4 Est. Patient 10:51:58 CDT Yolande Lindsay MD [facility] CPT-44371 Level 3 Est. Patient 14:04:55 [employer] Rodrigo Sarah [facility] CPT-96311 Level 3 Est. Patient 10:46:35 [employer] Rodrigo Sarah [facility] CPT-18140 Level 3 Est. Patient 14:24:37 [employer] Yolande Lindsay MD [facility] [place]-48626 Level 3 Est. Patient 17:41:58 [employer] Yolande Lindsay MD [facility] [place]-24721 Level 2 Est. Patient 22:01:41 [employer] Rodrigo Sarah [facility] CPT-81687 Level 2 Est. Patient 22:01:11 [employer] Silvestrecharanjitnacho Yenhossein [facility] CPT-69710 Level 3 Est. Patient 10:12:29 [employer] Rowenanacho Yenhossein [facility] CPT-46027 Level 3 Est. Patient 11:05:44 CDT Alexis Ordaz MD [facility] CPT-98270 Level 3 Est. Patient 14:57:20 CDT Yolande Lindsay MD [facility] CPT-30213 Level 3 Est. Patient 14:40:57 CDT Yolande Lindsay MD [facility] CPT-51869 Level 3 Est. Patient 20:55:40 CDT Yolande Lindsay MD [facility] CPT-19588 Level 3 Est. Patient 12:42:38 [employer] Yolande Lindsay MD [facility] CPT-68025 Level 3 Est. Patient 11:54:49 [employer] Des Hines MD [facility] CPT-84991 Level 3 Est. Patient 17:06:38 CDT Dewayne PERAZA [facility] Procedures Code Procedure Name Date Entry Date Standard Description [id number] Event Monitor - MC Transmission 09:12:32 CDT 08/06 [id number] Event Monitor - MC review and interp 09:12:32 CDT [id number] Event Monitor - MC recording 09:12:32 CDT CPT-58477 EKG Trac and Interp 16:50:22 CDT CPT-J1030 Depo Medrol 40 mg (Methyl Prednisolone Acetate) 17:05: 54 CDT CPT-J1100 Decadron 4mg (Dexamethasone) 17:05:54 CDT CPT-79795 Abx/Therapy Injection 17:05:54 CDT CPT-J1100 Decadron 4mg (Dexamethasone) 16:55:28 CDT CPT-J1030 Depo Medrol 40 mg (Methyl Prednisolone Acetate) 16:55: 28 CDT CPT-39233 Ankle Complete - Min 3V 15:58:50 CDT CPT-06335 Knee 3V 15:58:50 CDT CPT-25778 Hip comp min 2V 15:58:50 CDT CPT-J2270 Morphine Sulfate 10 mg 14:25:44 [employer] CPT-J2550 Phenergan 12.5 mg (Promethazine) 14:25:44 [employer] CPT-65563 Abx/Therapy Injection 14:25:44 [employer] CPT-J2550 Phenergan 12.5 mg (Promethazine) 14:08:03 [employer] CPT-J2270 Morphine Sulfate 10 mg 14:08:03 [employer] CPT-48161 Bladder Scan 15:00:38 CDT CPT-TCMM Transitional Care Mgmt-Moderate 09:52:22 CDT CPT-J1030 Depo Medrol 40 mg (Methyl Prednisolone Acetate) 10:55: 18 CDT CPT-J1100 Decadron 4mg (Dexamethasone) 10:55:18 CDT CPT-76357 Abx/Therapy Injection 10:55:18 CDT CPT-J1030 Depo Medrol 40 mg (Methyl Prednisolone Acetate) 10:22: 32 CDT CPT-J1100 Decadron 4mg (Dexamethasone) 10:22:32 CDT CPT-39302 Postop F/U Visit 14:37:13 CDT CPT-28641 Ankle Complete - Min 3V 17:11:58 CDT CPT-27197 Foot comp min 3V 17:11:58 CDT CPT-82631 Bladder Scan 09:56:58 CDT CPT-86952 Postop F/U Visit 09:56:58 CDT CPT-38002 Cystoscopy 09:02:42 CDT CPT-13500 Bladder Scan 09:02:42 CDT CPT-73400 Abd single AP View 16:00:35 CDT CPT-84743 Administration single or combination vaccine inc oral 10 :15:43 CDT CPT-94334 Influenza split virus > age 3 10:15:43 CDT CPT-26904 Nail Avulsion 09:24:57 CDT CPT-OV Office Visit 11:15:41 CDT CPT-78200 Abx/Therapy Injection 10:51:30 CDT CPT-J3301 Kenalog 40 mg (Triamcinolone Acetonide) 10:25:12 CDT CPT-J1100 Decadron 4mg (Dexamethasone) 10:25:12 CDT CPT-22738 Anoscopy diagnostic 10:36:12 CDT CPT-OV Office Visit 15:34:31 CDT CPT-10178 Abx/Therapy Injection 08:21:15 [employer] CPT-J1885 Toradol 60 mg (Ketorolac) 10:46:35 [employer] CPT-OV Office Visit 19:51:16 [employer] CPT-57299 Spec Collection and Handling Fee 14:34:18 [employer] CPT-PV Prev. Care Visit 14:19:18 [employer] CPT-46099 Postop F/U Visit 14:47:51 [employer] CPT-13368 Postop F/U Visit 15:15:14 [employer] CPT-91216 Postop F/U Visit 14:41:43 CDT CPT-77511 Postop F/U Visit 15:47:46 CDT CPT-OV Office Visit 15:27:23 CDT CPT-OV Office Visit 17:20:34 CDT CPT-10195 Abx/Therapy Injection 15:05:57 CDT CPT-J1100 Decadron 8mg (Dexamethasone) 14:44:57 CDT CPT-J1040 Depo Medrol 80 mg (Methyl Prednisolone Acetate) 14:44: 57 CDT CPT-JTINJ Joint Injection 10:17:37 CDT CPT-38427 Administration 2+ single or combination vaccines inc oral 13:01:46 [employer] CPT-36758 Administration single or combination vaccine inc oral 13 :01:46 [employer] CPT-73162 Pneumovax 13:01:46 [employer] CPT-60093 Influenza split virus > age 3 13:01:46 [employer] CPT-24192 Administration single or combination vaccine inc oral 08 :56:49 CDT CPT-77388 Tdap 08:56:49 CDT
--- OUTSIDE RECORDS SUMMARY | 2017-03-21 23:37 | XMS REPORT | Clinical Summary ---
Author Author Admin, MARGRET Organization [employer] Address Unknown Phone Unavailable Allergies, Adverse Reactions, Alerts Allergy Name Reaction Description Start Date Severity Status Provider VALENTIN Critical Active Rodrigo Montemayorl SCREEN CLEANER CHLORHEXIDINE GLUCONATE tongue and gums swollen Critical Active [facility] [place] NORFLEX Rash Critical Active Silvestrellina Frazell SCREEN CLEANER TRAZODONE HCL sees things Critical Active [...] hx of 412 Active [facility] Old myocardial infarction Pelvic pain 789.09 Active Yolande Lindsay MD PhD Abdominal pain, other specified site; multiple sites Edema 782.3 Active Yolande Lindsay MD PhD Edema Rash 782.1 Active Yolande Lindsay MD PhD Rash and other nonspecific skin eruption Back pain, lumbar 724.2 Active Gab Padron MD Lumbago Cough 786.2 Active Jillina Tyrel SCREEN CLEANER Cough 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 Jillina Frazellilian SCREEN CLEANER 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 Anemia 285.9 Active Gab Padron MD Anemia, unspecified Conjunctivitis 372.30 Active Jillina Tyrel SCREEN CLEANER Conjunctivitis, unspecified Sinusitis 473.9 Active Jillina Frazell SCREEN CLEANER Unspecified sinusitis (chronic) FOOT PAIN, RIGHT ICD-729.5 [...] TABS Take 1 tab daily LEVOTHYROXINE SODIUM 62999970959 No Longer Active Mariana FLEMING Active SYNTHROID 88 MCG ORAL TABS Take one by mouth daily LEVOTHYROXINE SODIUM 07107443172 Active Mariana FLEMING Active CHERATUSSIN AC 100-10 MG/5ML SYRP 1 tsp by mouth every 4 hours as needed for cough GUAIFENESIN-CODEINE 38792744924 No Longer Active Gab Padron MD Active POLYTRIM 71877-0.1 UNIT/ML-% SOLN 1 gtt to affected eye q3h x 7 days POLYMYXIN B-TRIMETHOPRIM 06946473623 No Longer Active Gab Padron MD Active FLUTICASONE PROPIONATE 50 MCG/ACT SUSP 1 to 2 sprays each nostril daily 04/21 FLUTICASONE PROPIONATE 97627926683 No Longer Active Gab Padron MD Active TRILEPTAL 600 MG TABS Take one 1 tablet in Am and 1 tablet at night OXCARBAZEPINE 09276932470 Active Gab Padron MD Active CEFDINIR 300 MG CAPS 1 po BID x 10 days CEFDINIR 30494718851 No Longer Active Rodrigo Sarah APRN Active CEFTIN 500 MG TAB 1 twice a day CEFUROXIME AXETIL 37352172458 No Longer Active Gab Padron MD Active AZITHROMYCIN 250 MG TABS 2 po qd x 1 day, then 1 po qd x 4 days AZITHROMYCIN 34895926964 No Longer Active Rodrigo Sarah APRN Active CLARITIN 10 MG TAB 1 tablet by mouth daily as needed for allergies LORATADINE 21218142558 Active Rodrigo Sarah APRN Active OXYCODONE HCL 5 MG ORAL CAPS 1 TAB PO Q HS OXYCODONE HCL 56195453349 No Longer Active Rodrigo Sarah APRN Active NIASPAN 500 MG ORAL CR-TABS 1 pill nightly x 1 week, then 2 pills nightly x 1 week, then 3 pills nightly x 1 week, then 4 pills nightly NIACIN (ANTIHYPERLIPIDEMIC) 24667377793 No Longer Active Rodrigo Sarah APRN Active NIACIN 500 MG TABS 1 pill by mouth nightly x 1 week, then 2 pills x 1 week, then 3 pills x 1 week, then 4 pills nightly - take after evening meal, with applesauce or an apple NIACIN 84042019484 No Longer Active Yolande Lindsay MD PhD Active FISH OIL 1000 MG CAPS 3 pills daily OMEGA-3 FATTY ACIDS 99688538333 Active Yolande Lindsay MD PhD Active TRIAMCINOLONE ACETONIDE 0.1 % CREA apply bid sparingly to rash TRIAMCINOLONE ACETONIDE 55480089976 Active Yolande Lindsay MD PhD Active FUROSEMIDE 20 MG TAB 1 tablet by mouth daily FUROSEMIDE 69022423581 Active Yolande Lindsay MD PhD Active LISINOPRIL 20 MG ORAL TABS 1 tab by mouth daily LISINOPRIL 82739437451 Active Gab Padron MD Active FUROSEMIDE 20 MG TABS 1 pill by mouth daily, for edema FUROSEMIDE 03721976277 No Longer Active Yolande Lindsay MD PhD Active ATORVASTATIN CALCIUM 10 MG TABS 1 pill by mouth daily, for cholesterol 09/06 ATORVASTATIN CALCIUM 09234687018 Active Yolande Lindsay MD PhD Active CALCIUM 600+D PLUS MINERALS 600-400 MG-UNIT ORAL CHEW 1 tab by mouth daily CALCIUM CARBONATE-VIT D-MIN 03910782629 No Longer Active Yolande Lindsay MD PhD Active CYCLOBENZAPRINE HCL 10 MG TABS 1 tablet by mouth three times daily as needed for muscle spasm/pain CYCLOBENZAPRINE HCL 44715013944 Active Yolande Lindsay MD PhD Active ONDANSETRON 4 MG TBDP 1 q4h PRN nausea ONDANSETRON 41008351957 Active Yolande Lindsay MD PhD Active ADULT ASPIRIN EC LOW STRENGTH 81 MG TBEC Take 1 tablet by mouth daily 2014 ASPIRIN 96361428727 No Longer Active Yolande Lindsay MD PhD Active ZOFRAN ODT 4 MG TBDP 1 pill dissolved by mouth every 4 hours if needed for nausea ONDANSETRON 27243625550 No Longer Active Yolande Lindsay MD PhD Active CEFTIN 500 MG TAB 1 twice a day CEFUROXIME AXETIL 46372726845 No Longer Active Yolande Lindsay MD PhD Active ALBUTEROL SULFATE 0.083 % [facility] SOLN one vial per nebulizer every 4-6 hours as needed ALBUTEROL SULFATE 85758873614 No Longer Active Alexis Ordaz MD Active DOXYCYCLINE HYCLATE 100 MG CAP 1 cap by mouth twice daily DOXYCYCLINE HYCLATE 12870348391 No Longer Active Yolande Lindsay MD PhD Active CYCLOBENZAPRINE HCL 10 MG TABS 1/2 - 1 tab by mouth three times daily if needed for spasms/pain CYCLOBENZAPRINE HCL 89768073964 No Longer Active Yolande Lindsay MD PhD Active AZITHROMYCIN 250 MG TABS 2 pills on day 1, then 1 pill daily x 4 days AZITHROMYCIN 65790662485 No Longer Active Yolande Lindsay MD PhD Active XOPENEX 1.25 MG/3ML NEBU 1 neb every 4 hours if needed for cough/congestion LEVALBUTEROL HCL 93420436463 No Longer Active Yolande Lindsay MD PhD Active DOXYCYCLINE HYCLATE 100 MG TAB 1 tab twice a day for 14 days 2013 DOXYCYCLINE HYCLATE 45322215548 No Longer Active Yolande Lindsay MD PhD Active PREVACID 30 MG CPDR Take 1 tablet by mouth daily-PRN LANSOPRAZOLE 80693111012 No Longer Active Yolande Lindsay MD PhD Active PA VITAMIN D-3 2000 UNIT CAPS 1 CAP PO DAILY CHOLECALCIFEROL 95797957602 No Longer Active Yolande Lindsay MD PhD Active CEFDINIR 300 MG CAPS by mouth twice a day CEFDINIR 30011755519 No Longer Active Gab Padron MD Active TOPAMAX 50 MG TABS 1 PO twice daily TOPIRAMATE 39355130733 Active Yolande Lindsay MD PhD Active AZITHROMYCIN 250 MG TABS 2 po qd x 1 day, then 1 po qd x 4 days AZITHROMYCIN 03917999663 No Longer Active Yolande Lindsay MD PhD Active DICLOFENAC SODIUM 75 MG TBEC 1 tablet by q 12 hours PRN headaches DICLOFENAC SODIUM 51633426584 No Longer Active Yolande Lindsay MD PhD Active FLONASE 50 MCG/ACT SUSP 1 spray each nostril am and hs FLUTICASONE PROPIONATE 60815816070 No Longer Active Todd Callaway MD Active ANUSOL-HC 25 MG SUPPOSITORY 1 rectally twice a day as needed for hemorrhoids HYDROCORTISONE JAYDEN (RECTAL) 03394835597 No Longer Active Yolande Lindsay MD PhD Active ANUSOL-HC 25 MG SUPPOSITORY 1 suppository rectally each evening as needed for anal fissure HYDROCORTISONE JAYDEN (RECTAL) 76755942813 No Longer Active Bozena JaredEDELMIRAFeliciano Active VALIUM 5 MG TAB 1 po 30 minutes prior to your MRI DIAZEPAM 05260559474 No Longer Active LONNIE Iglesias Active METHOCARBAMOL 750 MG TABS 1 PO QID PRN METHOCARBAMOL 83735107906 No Longer Active Daphne Wetzel SCREEN CLEANER Active NITROSTAT 0.4 MG SUBL as directed NITROGLYCERIN 41506716886 No Longer Active Rodrigo Sarah SCREEN CLEANER Active ROBAXIN-750 750 MG TABS 2 four times a day for 3 days as needed for muscle spasm, then 1 four times a day as needed METHOCARBAMOL 12733332314 No Longer Active Rodrigo Sarah APRN Active HYDROCODONE-ACETAMINOPHEN 5-325 MG TABS 1 q 4-6 hrs prn HYDROCODONE-ACETAMINOPHEN 92855347108 No Longer Active Silvestrellnacho Sarah APRN Active VERAPAMIL HCL CR 180 MG CR-TABS TAKE 1 TAB DAILY VERAPAMIL HCL 99888113997 No Longer Active Yolande Lindsay MD PhD Active BACTRIM DS 800-160 MG TAB 1 tab by mouth twice daily TRIMETHOPRIM-SULFAMETHOXAZOLE 86449233659 No Longer Active Yolande Lindsay MD PhD Active NEXIUM 40 MG PACK 1 by mouth daily ESOMEPRAZOLE MAGNESIUM 82602465609 No Longer Active Des Hines MD Active EPIPEN 2-CHARLETTE 0.3 MG/0.3ML OMARI as need for allergic reaction EPINEPHRINE 85510942751 Active Yolande Lindsay MD PhD Active NEXIUM 40 MG CPDR 1 PO Q D DAY ESOMEPRAZOLE MAGNESIUM 72780572136 No Longer Active Sadia Perry RN Active NEXIUM 40 MG PACK 1 by mouth daily NEXIUM 40 MG PACK ESOMEPRAZOLE MAGNESIUM Inactive VERAPAMIL HCL CR 180 MG CR-TABS TAKE 1 TAB DAILY VERAPAMIL HCL CR 180 MG CR-TABS VERAPAMIL HCL Inactive HYDROCODONE-ACETAMINOPHEN 5-325 MG TABS 1 q 4-6 hrs prn HYDROCODONE-ACETAMINOPHEN 5-325 MG TABS 764589 HYDROCODONE-ACETAMINOPHEN Inactive ROBAXIN-750 750 MG TABS 2 four times a day for 3 days as needed for muscle spasm, then 1 four times a day as needed ROBAXIN-750 750 MG TABS 073632 METHOCARBAMOL Inactive NITROSTAT 0.4 MG SUBL as directed NITROSTAT 0.4 MG SUBL NITROGLYCERIN Inactive METHOCARBAMOL 750 MG TABS 1 PO QID PRN METHOCARBAMOL 750 MG TABS 666969 METHOCARBAMOL Inactive VALIUM 5 MG TAB 1 po 30 minutes prior to your MRI VALIUM 5 MG TAB 081376 DIAZEPAM Inactive ANUSOL-HC 25 MG SUPPOSITORY 1 suppository rectally each evening as needed for anal fissure ANUSOL-HC 25 MG SUPPOSITORY 0136693 HYDROCORTISONE JAYDEN (RECTAL) Inactive ANUSOL-HC 25 MG SUPPOSITORY 1 rectally twice a day as needed for hemorrhoids ANUSOL-HC 25 MG SUPPOSITORY 9403820 HYDROCORTISONE JAYDEN (RECTAL) Inactive FLONASE 50 MCG/ACT SUSP 1 spray each nostril am and hs FLONASE 50 MCG/ACT SUSP FLUTICASONE PROPIONATE Inactive DICLOFENAC SODIUM 75 MG TBEC 1 tablet by q 12 hours PRN headaches DICLOFENAC SODIUM 75 MG TBEC 266099 DICLOFENAC SODIUM Inactive PA VITAMIN D-3 2000 UNIT CAPS 1 CAP PO DAILY PA VITAMIN D-3 2000 UNIT CAPS CHOLECALCIFEROL Inactive PREVACID 30 MG CPDR Take 1 tablet by mouth daily-PRN PREVACID 30 MG CPDR 008343 LANSOPRAZOLE Inactive DOXYCYCLINE HYCLATE 100 MG TAB 1 tab twice a day for 14 days 2013 DOXYCYCLINE HYCLATE 100 MG TAB 4364462 DOXYCYCLINE HYCLATE Inactive XOPENEX 1.25 MG/3ML NEBU 1 neb every 4 hours if needed for cough/congestion XOPENEX 1.25 MG/3ML NEBU 579978 LEVALBUTEROL HCL Inactive CYCLOBENZAPRINE HCL 10 MG TABS 1/2 - 1 tab by mouth three times daily if needed for spasms/pain CYCLOBENZAPRINE HCL 10 MG TABS 382936 CYCLOBENZAPRINE HCL Inactive ALBUTEROL SULFATE 0.083 % NEBU SOLN one vial per nebulizer every 4-6 hours as needed ALBUTEROL SULFATE 0.083 % NEBU SOLN 535443 ALBUTEROL SULFATE Inactive CEFTIN 500 MG TAB 1 twice a day CEFTIN 500 MG TAB 362179 CEFUROXIME AXETIL Inactive ZOFRAN ODT 4 MG TBDP 1 pill dissolved by mouth every 4 hours if needed for nausea ZOFRAN ODT 4 MG TBDP 158218 ONDANSETRON Inactive ADULT ASPIRIN EC LOW STRENGTH 81 MG TBEC Take 1 tablet by mouth daily 2014 ADULT ASPIRIN EC LOW STRENGTH 81 MG TBEC 958922 ASPIRIN Inactive CALCIUM 600+D PLUS MINERALS 600-400 [...] or an apple NIACIN 500 MG TABS 010378 NIACIN Inactive NIASPAN 500 MG ORAL CR-TABS 1 pill nightly x 1 week, then 2 pills nightly x 1 week, then 3 pills nightly x 1 week, then 4 pills nightly NIASPAN 500 MG ORAL CR-TABS NIACIN (ANTIHYPERLIPIDEMIC) Inactive OXYCODONE HCL 5 MG ORAL CAPS 1 TAB PO Q HS OXYCODONE HCL 5 MG ORAL CAPS 9041798 OXYCODONE HCL Inactive FLUTICASONE PROPIONATE 50 MCG/ACT SUSP 1 to 2 sprays each nostril daily 04/21 FLUTICASONE PROPIONATE 50 MCG/ACT SUSP 771737 FLUTICASONE PROPIONATE Inactive POLYTRIM 57854-6.1 UNIT/ML-% SOLN 1 gtt to affected eye q3h x 7 days POLYTRIM 65338-3.1 UNIT/ML-% SOLN 381903 POLYMYXIN B- TRIMETHOPRIM Inactive CHERATUSSIN AC 100-10 MG/5ML SYRP 1 tsp by mouth every 4 hours as needed for cough CHERATUSSIN AC 100-10 MG/5ML SYRP 892300 GUAIFENESIN-CODEINE Inactive LEVOTHYROXINE SODIUM 75 MCG TABS Take 1 tab daily LEVOTHYROXINE SODIUM 75 MCG TABS 318753 LEVOTHYROXINE SODIUM Inactive BACTRIM DS 800-160 MG TAB 1 tab by mouth twice daily BACTRIM DS 800-160 MG TAB 610906 TRIMETHOPRIM-SULFAMETHOXAZOLE Inactive AZITHROMYCIN 250 MG TABS 2 po qd x 1 day, then 1 po qd x 4 days AZITHROMYCIN 250 MG TABS 6146724 AZITHROMYCIN Inactive CEFDINIR 300 MG CAPS by mouth twice a day CEFDINIR 300 MG CAPS 776486 CEFDINIR Inactive AZITHROMYCIN 250 MG TABS 2 pills on day 1, then 1 pill daily x 4 days AZITHROMYCIN 250 MG TABS 8359249 AZITHROMYCIN Inactive DOXYCYCLINE HYCLATE 100 MG CAP 1 cap by mouth twice daily DOXYCYCLINE HYCLATE 100 MG CAP 2001178 DOXYCYCLINE HYCLATE Inactive FUROSEMIDE 20 MG TABS 1 pill by mouth daily, for edema FUROSEMIDE 20 MG TABS 091883 FUROSEMIDE Inactive AZITHROMYCIN 250 MG TABS 2 po qd x 1 day, then 1 po qd x 4 days AZITHROMYCIN 250 MG TABS 8304670 AZITHROMYCIN Inactive CEFTIN 500 MG TAB 1 twice a day CEFTIN 500 MG TAB 679230 CEFUROXIME AXETIL Inactive CEFDINIR 300 MG CAPS 1 po BID x 10 days CEFDINIR 300 MG CAPS 395371 CEFDINIR Inactive Immunizations Vaccine Administration Date Value Standard Description Seasonal influenza vaccine, injectable, containing preservative, for > 3 years old (Afluria, FluLaval, Fluzone, Fluvirin, Fluarix, Agriflu(>=18 yo)) Fluzone (>3 yrs.) [ENP576] Influenza, seasonal, injectable influenza immunization (Flu Vax) has been administered Influenza - Unspecified Formulation [CVX88] influenza virus vaccine, unspecified formulation Seasonal influenza vaccine, injectable, containing preservative, for > 3 years old (Afluria, FluLaval, Fluzone, Fluvirin, Fluarix, Agriflu(>=18 yo)) Fluzone (>3 yrs.) [RNP064] Influenza, seasonal, injectable pneumococcal immunization administered Pneumovax 23 [CVX33] pneumococcal polysaccharide vaccine, 23 valent dT (Diphtheria and Tetanus) booster given given Td(adult) unspecified formulation Boostrix (Tetanus toxoid, reduced diphtheria toxoid and acellular pertussis vaccine, adsorbed), booster Boostrix [UTN877] tetanus toxoid, reduced diphtheria toxoid, and acellular [...] Panel - Chemistry sodium, serum 145 mmol/L 309-000 6040/06/22 potassium, serum 3.9 mmol/L 3.5-5.2 chloride, serum 109 mmol/L 98-107 carbon dioxide, venous blood 23.4 mmol/L 21.0-32.0 blood glucose 92 mg/dL 65-110 calcium, serum 8.2 mg/dL 8.5-10.1 urea nitrogen, blood 24 mg/dL 7-18 creatinine, serum 1.30 mg/dL 0.60-1.30 Lab Report: [facility] Advanced Lipid and Inlammation Panel /53812 - Chemistry cholesterol, serum 198 mg/dL 823-075 7575/04/30 HDL cholesterol, serum 65 mg/dL > OR=46 triglyceride, serum, fasting 82 mg/dL LDL cholesterol, serum 117 mg/dL cholesterol/HDL ratio, serum 3.0 calc < OR=5.0 cholesterol, serum 148 mg/dL 112-126 8585/09/02 HDL cholesterol, serum 55 mg/dL > OR=46 [...] (L) - Chemistry sodium, serum 145 mmol/L 168-508 2386/09/02 potassium, serum 4.6 mmol/L 3.5-5.2 chloride, serum [...] 51 mg/dL 30-200 cholesterol, serum 173 mg/dL 350-271 7105/04/28 HDL cholesterol, serum 63 mg/dL 32-96 LDL [...] mg/dL Encounters Code Encounter Date Provider Facility CPT-43710 Level 4 Est. Patient 21:02:30 SHOT HOLE SHOOTER Gab Padron MD [facility]-08387 Level 3 Est. Patient 11:02:19 SHOT HOLE SHOOTER Gab Padron MD [facility]-46700 Level 4 Est. Patient 22:24:31 SHOT HOLE SHOOTER Gab Padron MD [facility]-83863 Level 3 Est. Patient 18:33:46 SHOT HOLE SHOOTER Gab Padron MD [facility]-51588 Level 3 Est. Patient 16:19:11 CDT Yolande Lindsay MD [facility]-57945 Level 3 Est. Patient 18:59:14 CDT Yolande Lindsay MD [facility]-47205 Level 4 Est. Patient 21:29:26 CDT Yolande Lindsay MD [facility]-03450 Level 3 Est. Patient 07:37:45 CDT Yolande Lindsay MD [facility]-30334 Level 3 Est. Patient 17:03:46 CDT Yolande Lindsay MD [facility]-27800 Level 4 Est. Patient 20:02:13 SHOT HOLE SHOOTER Yolande Lindsay MD [facility]-57642 Level 3 Est. Patient 16:02:07 SHOT HOLE SHOOTER Alexis Ordaz MD [facility]-37900 Level 3 Est. Patient 12:41:24 SHOT HOLE SHOOTER Yolande Lindsay MD [facility]-18245 Level 3 Est. Patient 15:41:20 SHOT HOLE SHOOTER Yolande Lindsay MD [facility]-19814 Level 3 Est. Patient 13:20:02 SHOT HOLE SHOOTER Yolande Lindsay MD [facility]-91419 Level 3 Est. Patient 15:00:38 CDT Jared Og MD [facility]-34142 Level 3 Est. Patient 10:22:32 CDT Yolande Lindsay MD [facility] CPT-78926 Level 3 Est. Patient 17:12:58 CDT Yolande Lindsay MD [facility]-07563 Level 4 Est. Patient 13:30:58 CDT Yolande Lindsay MD [facility]-26272 Level 4 New Patient 09:02:42 CDT Jared Og MD [facility]-81599 Level 3 Est. Patient 08:19:07 CDT Yolande Lindsay MD [facility]-09412 Level 3 Est. Patient 12:00:13 SHOT HOLE SHOOTER Gab Padron MD [facility]-38289 Level 3 Est. Patient 16:15:23 SHOT HOLE SHOOTER Yolande Lindsay MD [facility]-17772 Level 2 Est. Patient 19:47:15 CDT Yolande Lindsay MD [facility]-41507 Level 3 Est. Patient 21:38:31 CDT Yolande Lindsay MD [facility]-84299 Level 3 Est. Patient 10:25:12 CDT Adiel PERAZA [facility] CPT-83889 Level 4 Est. Patient 10:51:58 CDT Yolande Lindsay MD [facility]-25101 Level 3 Est. Patient 14:04:55 SHOT HOLE SHOOTER Rodrigo Sarah [facility]-34205 Level 3 Est. Patient 10:46:35 SHOT HOLE SHOOTER Rodrigo Sarah [facility]-77039 Level 3 Est. Patient 14:24:37 SHOT HOLE SHOOTER Yolande Lindsay MD [facility]-29033 Level 3 Est. Patient 17:41:58 SHOT HOLE SHOOTER Yolande Lindsay MD PhD [facility] CPT-54055 Level 2 Est. Patient 22:01:41 SHOT HOLE SHOOTER Rodrigo Sarah [facility] CPT-48433 Level 2 Est. Patient 22:01:11 SHOT HOLE SHOOTER Rodrigo Sarah [facility] [place] CPT-64531 Level 3 Est. Patient 10:12:29 SHOT HOLE SHOOTER Rodrigo Sarah [facility] [place] CPT-52734 Level 3 Est. Patient 11:05:44 CDT Alexis Ordaz MD [facility]-96212 Level 3 Est. Patient 14:57:20 CDT Yolande Lindsay MD [facility]-84451 Level 3 Est. Patient 14:40:57 CDT Yolande Lindsay MD [facility]-06681 Level 3 Est. Patient 20:55:40 CDT Yolande Lindsay MD [facility]-10627 Level 3 Est. Patient 12:42:38 SHOT HOLE SHOOTER Yolande Lindsay MD [facility]-78212 Level 3 Est. Patient 11:54:49 SHOT HOLE SHOOTER Des Hines MD [facility]-71900 Level 3 Est. Patient 17:06:38 CDT Dewayne PERAZA [facility] Procedures Code Procedure Name Date Entry Date Standard Description CPT-52684 LS spine comp w obliq 13:28:00 SHOT HOLE SHOOTER CPT-J1040 Depo Medrol 80 mg (Methyl Prednisolone Acetate) 10:51: 28 SHOT HOLE SHOOTER CPT-J1100 Decadron 8mg (Dexamethasone) 10:51:28 SHOT HOLE SHOOTER CPT-29319 Abx/Therapy Injection 10:51:28 SHOT HOLE SHOOTER CPT-J1100 Decadron 8mg (Dexamethasone) 21:02:30 SHOT HOLE SHOOTER CPT-J1040 Depo Medrol 80 mg (Methyl Prednisolone Acetate) 21:02: 30 SHOT HOLE SHOOTER [id number] Event Monitor - MC Transmission 09:12:32 CDT 08/06 [id number] Event Monitor - MC review and interp 09:12:32 CDT CUT-17624-02 Event Monitor - MC recording 09:12:32 CDT CPT-14899 EKG Trac and Interp 16:50:22 CDT CPT-J1030 Depo Medrol 40 mg (Methyl Prednisolone Acetate) 17:05: 54 CDT CPT-J1100 Decadron 4mg (Dexamethasone) 17:05:54 CDT CPT-27638 Abx/Therapy Injection 17:05:54 CDT CPT-J1100 Decadron 4mg (Dexamethasone) 16:55:28 CDT CPT-J1030 Depo Medrol 40 mg (Methyl Prednisolone Acetate) 16:55: 28 CDT CPT-47475 Ankle Complete - Min 3V 15:58:50 CDT CPT-16726 Knee 3V 15:58:50 CDT CPT-72641 Hip comp min 2V 15:58:50 CDT CPT-J2270 Morphine Sulfate 10 mg 14:25:44 SHOT HOLE SHOOTER CPT-J2550 Phenergan 12.5 mg (Promethazine) 14:25:44 SHOT HOLE SHOOTER CPT-43123 Abx/Therapy Injection 14:25:44 SHOT HOLE SHOOTER CPT-J2550 Phenergan 12.5 mg (Promethazine) 14:08:03 SHOT HOLE SHOOTER CPT-J2270 Morphine Sulfate 10 mg 14:08:03 SHOT HOLE SHOOTER CPT-57854 Bladder Scan 15:00:38 CDT CPT-TCMM Transitional Care Mgmt-Moderate 09:52:22 CDT CPT-J1030 Depo Medrol 40 mg (Methyl Prednisolone Acetate) 10:55: 18 CDT CPT-J1100 Decadron 4mg (Dexamethasone) 10:55:18 CDT CPT-17331 Abx/Therapy Injection 10:55:18 CDT CPT-J1030 Depo Medrol 40 mg (Methyl Prednisolone Acetate) 10:22: 32 CDT CPT-J1100 Decadron 4mg (Dexamethasone) 10:22:32 CDT CPT-18050 Postop F/U Visit 14:37:13 CDT CPT-33571 Ankle Complete - Min 3V 17:11:58 CDT CPT-44640 Foot comp min 3V 17:11:58 CDT CPT-33658 Bladder Scan 09:56:58 CDT CPT-12157 Postop F/U Visit 09:56:58 CDT CPT-62222 Cystoscopy 09:02:42 CDT CPT-73836 Bladder Scan 09:02:42 CDT CPT-24049 Abd single AP View 16:00:35 CDT CPT-21917 Administration single or combination vaccine inc oral 10 :15:43 CDT CPT-53919 Influenza split virus > age 3 10:15:43 CDT CPT-60736 Nail Avulsion 09:24:57 CDT CPT-OV Office Visit 11:15:41 CDT CPT-46910 Abx/Therapy Injection 10:51:30 CDT CPT-J3301 Kenalog 40 mg (Triamcinolone Acetonide) 10:25:12 CDT CPT-J1100 Decadron 4mg (Dexamethasone) 10:25:12 CDT CPT-61778 Anoscopy diagnostic 10:36:12 CDT CPT-OV Office Visit 15:34:31 CDT CPT-82527 Abx/Therapy Injection 08:21:15 SHOT HOLE SHOOTER CPT-J1885 Toradol 60 mg (Ketorolac) 10:46:35 SHOT HOLE SHOOTER CPT-OV Office Visit 19:51:16 SHOT HOLE SHOOTER CPT-24685 Spec Collection and Handling Fee 14:34:18 SHOT HOLE SHOOTER CPT-PV Prev. Care Visit 14:19:18 SHOT HOLE SHOOTER CPT-06927 Postop F/U Visit 14:47:51 SHOT HOLE SHOOTER CPT-10119 Postop F/U Visit 15:15:14 SHOT HOLE SHOOTER CPT-22723 Postop F/U Visit 14:41:43 CDT CPT-87520 Postop F/U Visit 15:47:46 CDT CPT-OV Office Visit 15:27:23 CDT CPT-OV Office Visit 17:20:34 CDT CPT-16429 Abx/Therapy Injection 15:05:57 CDT CPT-J1100 Decadron 8mg (Dexamethasone) 14:44:57 CDT CPT-J1040 Depo Medrol 80 mg (Methyl Prednisolone Acetate) 14:44: 57 CDT CPT-JTINJ Joint Injection 10:17:37 CDT CPT-20156 Administration 2+ single or combination vaccines inc oral 13:01:46 SHOT HOLE SHOOTER CPT-53503 Administration single or combination vaccine inc oral 13 :01:46 SHOT HOLE SHOOTER CPT-42201 Pneumovax 13:01:46 SHOT HOLE SHOOTER CPT-12838 Influenza split virus > age 3 13:01:46 SHOT HOLE SHOOTER CPT-45566 Administration single or combination vaccine inc oral 08 :56:49 CDT CPT-85526 Tdap 08:56:49 CDT
--- OUTSIDE RECORDS SUMMARY | 2017-03-21 23:40 | XMS REPORT | Clinical Summary ---
Author Author Admin, E Organization [facility] Address Unknown Phone Unavailable Allergies, Adverse Reactions, Alerts Allergy Name Reaction Description Start Date Severity Status Provider VALENTIN Critical Active Rodrigo Fracharlottel RETAIL ANALYST CHLORHEXIDINE GLUCONATE tongue and gums swollen Critical Active Hoa Otto RMA NORFLEX Rash Critical Active Silvestrellina Frazell RETAIL ANALYST TRAZODONE HCL sees things Critical Active [...] unspecified site PLANTAR FASCIITIS 728.71 Resolved Yolande Lindsya MD PhD Plantar fascial fibromatosis UTI 599.0 [...] Lumbago Cough 786.2 Active Jillina Tyrel RETAIL ANALYST Cough 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 Jillina Frazellilian RETAIL ANALYST 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 Anemia 285.9 Active Gab Padron MD Anemia, unspecified Conjunctivitis 372.30 Active Jillnacho Sarah APRN Conjunctivitis, unspecified Sinusitis 473.9 Active Silvestrellina Frazell RETAIL ANALYST Unspecified sinusitis (chronic) Nonspecific syndrome suggestive of viral illness 079.99 Active Jillina Frazell RETAIL ANALYST Unspecified viral infection Laryngitis 464.00 Active Jillina Frazell RETAIL ANALYST Acute laryngitis without mention of obstruction [...] Flank pain, left 789.09 Active Jillina Frazell RETAIL ANALYST Abdominal pain, other specified site; multiple sites Abdominal pain, generalized 789.07 Active Jillina Farshadzell RETAIL ANALYST Abdominal pain, generalized Back pain, thoracic region, left 724.1 Active Jillina Frazell RETAIL ANALYST Pain in thoracic spine Abdominal pain, [...] every 6 hrs prn pain TRAMADOL HCL 87564667268 Active Gab Padron MD Active PREDNISONE 20 MG TAB 2 tabs daily for 3 days, 1 tab daily for 3 days, 1/2 tab daily for 2 days PREDNISONE 23812477154 No Longer Active Gab Padron MD Active ZOFRAN ODT 4 MG TBDP 1 po q6hr PRN Nausea ONDANSETRON 33854703527 Active Gab Padron MD Active IBUPROFEN 600 MG TAB 1 tablet by mouth every 6 hours for 7 days, then 1 tablet every 6 hours as needed. Take with food IBUPROFEN 08343304126 Active Jillina Frazell RETAIL ANALYST Active BACTRIM DS 800-160 MG TAB 1 tab by mouth twice daily TRIMETHOPRIM-SULFAMETHOXAZOLE 16378541943 No Longer Active Gab Padron MD Active ADVAIR DISKUS 250-50 MCG/DOSE AEPB 1 puff BID FLUTICASONE- SALMETEROL 32919102872 Active Silevstrellnacho Sarah APRN Active LEVOTHYROXINE SODIUM 75 MCG TABS Take 1 tab daily LEVOTHYROXINE SODIUM 12060480360 No Longer Active Mariana FLEMING Active SYNTHROID 88 MCG ORAL TABS Take one by mouth daily LEVOTHYROXINE SODIUM 65042386832 Active Gab Padron MD Active CHERATUSSIN AC 100-10 MG/5ML SYRP 1 tsp by mouth every 4 hours as needed for cough GUAIFENESIN-CODEINE 27518336680 No Longer Active Gab Padron MD Active POLYTRIM 70312-7.1 UNIT/ML-% SOLN 1 gtt to affected eye q3h x 7 days POLYMYXIN B-TRIMETHOPRIM 54498777651 No Longer Active Gab Padron MD Active FLUTICASONE PROPIONATE 50 MCG/ACT SUSP 1 to 2 sprays each nostril daily 04/21 FLUTICASONE PROPIONATE 96645171478 No Longer Active Gab Padron MD Active TRILEPTAL 600 MG TABS Take one 1 tablet in Am and 1 tablet at night OXCARBAZEPINE 82246308061 Active Gab Padron MD Active CEFDINIR 300 MG CAPS 1 po BID x 10 days CEFDINIR 41953014342 No Longer Active Rodrigo Sarah APRN Active CEFTIN 500 MG TAB 1 twice a day CEFUROXIME AXETIL 12567508529 No Longer Active Gab Padron MD Active AZITHROMYCIN 250 MG TABS 2 po qd x 1 day, then 1 po qd x 4 days AZITHROMYCIN 92491326169 No Longer Active Rodrigo Sarah APRN Active CLARITIN 10 MG TAB 1 tablet by mouth daily as needed for allergies LORATADINE 20160738645 Active Rodrigo Sarah APRN Active OXYCODONE HCL 5 MG ORAL CAPS 1 TAB PO Q HS OXYCODONE HCL 83571428653 No Longer Active Rodrigo Sarah APRN Active NIASPAN 500 MG ORAL CR-TABS 1 pill nightly x 1 week, then 2 pills nightly x 1 week, then 3 pills nightly x 1 week, then 4 pills nightly NIACIN (ANTIHYPERLIPIDEMIC) 73068915327 No Longer Active Rodrigo Sarah APRN Active NIACIN 500 MG TABS 1 pill by mouth nightly x 1 week, then 2 pills x 1 week, then 3 pills x 1 week, then 4 pills nightly - take after evening meal, with applesauce or an apple NIACIN 69685740517 No Longer Active Yolande Lindsay MD PhD Active FISH OIL 1000 MG CAPS 3 pills daily OMEGA-3 FATTY ACIDS 60078490071 Active Yolande Lindsay MD PhD Active TRIAMCINOLONE ACETONIDE 0.1 % CREA apply bid sparingly to rash TRIAMCINOLONE ACETONIDE 88791374085 Active Yolande Lindsay MD PhD Active FUROSEMIDE 20 MG TAB 1 tablet by mouth daily FUROSEMIDE 21685661905 Active Tisha Lambert APRN Active LISINOPRIL 20 MG ORAL TABS 1 tab by mouth daily LISINOPRIL 25758810326 Active Tisha Lambert APRN Active FUROSEMIDE 20 MG TABS 1 pill by mouth daily, for edema FUROSEMIDE 60426448645 No Longer Active Yolande Lindsay MD PhD Active ATORVASTATIN CALCIUM 10 MG TABS 1 pill by mouth daily, for cholesterol 09/06 ATORVASTATIN CALCIUM 16547282873 Active Gab Padron MD Active CALCIUM 600+D PLUS MINERALS 600-400 MG-UNIT ORAL CHEW 1 tab by mouth daily CALCIUM CARBONATE-VIT D-MIN 45477983452 No Longer Active Yolande Lindsay MD PhD Active CYCLOBENZAPRINE HCL 10 MG TABS 1 tablet by mouth three times daily as needed for muscle spasm/pain CYCLOBENZAPRINE HCL 03246121653 Active Yolande Lindsay MD PhD Active ONDANSETRON 4 MG TBDP 1 q4h PRN nausea ONDANSETRON 12437841440 Active Yolande Lindsay MD PhD Active ADULT ASPIRIN EC LOW STRENGTH 81 MG TBEC Take 1 tablet by mouth daily 2014 ASPIRIN 21845021187 No Longer Active Yolande Lindsay MD PhD Active ZOFRAN ODT 4 MG TBDP 1 pill dissolved by mouth every 4 hours if needed for nausea ONDANSETRON 40409970124 No Longer Active Yolande Lindsay MD PhD Active CEFTIN 500 MG TAB 1 twice a day CEFUROXIME AXETIL 04615082954 No Longer Active Yolande Lindsay MD PhD Active ALBUTEROL SULFATE 0.083 % NEBU SOLN one vial per nebulizer every 4-6 hours as needed ALBUTEROL SULFATE 67055851217 No Longer Active Alexis Ordaz MD Active DOXYCYCLINE HYCLATE 100 MG CAP 1 cap by mouth twice daily DOXYCYCLINE HYCLATE 23598163592 No Longer Active Yolande Lindsay MD PhD Active CYCLOBENZAPRINE HCL 10 MG TABS 1/2 - 1 tab by mouth three times daily if needed for spasms/pain CYCLOBENZAPRINE HCL 40893219087 No Longer Active Yolande Lindsay MD PhD Active AZITHROMYCIN 250 MG TABS 2 pills on day 1, then 1 pill daily x 4 days AZITHROMYCIN 44885532029 No Longer Active Yolande Lindsay MD PhD Active XOPENEX 1.25 MG/3ML NEBU 1 neb every 4 hours if needed for cough/congestion LEVALBUTEROL HCL 55672047508 No Longer Active Yolande Lindsay MD PhD Active DOXYCYCLINE HYCLATE 100 MG TAB 1 tab twice a day for 14 days 2013 DOXYCYCLINE HYCLATE 65363889421 No Longer Active Yolande Lindsay MD PhD Active PREVACID 30 MG CPDR Take 1 tablet by mouth daily-PRN LANSOPRAZOLE 39956821778 No Longer Active Yolande Lindsay MD PhD Active PA VITAMIN D-3 2000 UNIT CAPS 1 CAP PO DAILY CHOLECALCIFEROL 44559571855 No Longer Active Yolande Lindsay MD PhD Active CEFDINIR 300 MG CAPS by mouth twice a day CEFDINIR 99552578233 No Longer Active Gab Padron MD Active TOPAMAX 50 MG TABS 1 PO twice daily TOPIRAMATE 19747265910 Active Yolande Lindsay MD PhD Active AZITHROMYCIN 250 MG TABS 2 po qd x 1 day, then 1 po qd x 4 days AZITHROMYCIN 73232305436 No Longer Active Yolande Lindsay MD PhD Active DICLOFENAC SODIUM 75 MG TBEC 1 tablet by q 12 hours PRN headaches DICLOFENAC SODIUM 67746957005 No Longer Active Yolande Lindsay MD PhD Active FLONASE 50 MCG/ACT SUSP 1 spray each nostril am and hs FLUTICASONE PROPIONATE 28584403942 No Longer Active Todd Callaway MD Active ANUSOL-HC 25 MG SUPPOSITORY 1 rectally twice a day as needed for hemorrhoids HYDROCORTISONE JAYDEN (RECTAL) 41855336494 No Longer Active Yolande Lindsay MD PhD Active ANUSOL-HC 25 MG SUPPOSITORY 1 suppository rectally each evening as needed for anal fissure HYDROCORTISONE JAYDEN (RECTAL) 86310130547 No Longer Active LONNIE Iglesias Active VALIUM 5 MG TAB 1 po 30 minutes prior to your MRI DIAZEPAM 76174395077 No Longer Active Bozena LONNIE Coleman Active METHOCARBAMOL 750 MG TABS 1 PO QID PRN METHOCARBAMOL 49249380162 No Longer Active Daphne Wetzel RETAIL ANALYST Active NITROSTAT 0.4 MG SUBL as directed NITROGLYCERIN 32387275320 No Longer Active Rodrigo Sarah RETAIL ANALYST Active ROBAXIN-750 750 MG TABS 2 four times a day for 3 days as needed for muscle spasm, then 1 four times a day as needed METHOCARBAMOL 80545427472 No Longer Active Rodrigo Sarah APRN Active HYDROCODONE-ACETAMINOPHEN 5-325 MG TABS 1 q 4-6 hrs prn HYDROCODONE-ACETAMINOPHEN 47178129696 No Longer Active Rodrigo Sarah APRN Active VERAPAMIL HCL CR 180 MG CR-TABS TAKE 1 TAB DAILY VERAPAMIL HCL 26675106553 No Longer Active Yolande Lindsay MD PhD Active BACTRIM DS 800-160 MG TAB 1 tab by mouth twice daily TRIMETHOPRIM-SULFAMETHOXAZOLE 47093319184 No Longer Active Yoladne Lindsay MD PhD Active NEXIUM 40 MG PACK 1 by mouth daily ESOMEPRAZOLE MAGNESIUM 67025304515 No Longer Active Des Hines MD Active EPIPEN 2-CHARLETTE 0.3 MG/0.3ML OMARI as need for allergic reaction EPINEPHRINE 04212820968 Active Yolande Lindsay MD PhD Active NEXIUM 40 MG CPDR 1 PO Q D DAY ESOMEPRAZOLE MAGNESIUM 46907764466 No Longer Active Sadia Perry RN Active NEXIUM 40 MG PACK 1 by mouth daily NEXIUM 40 MG PACK ESOMEPRAZOLE MAGNESIUM Inactive VERAPAMIL HCL CR 180 MG CR-TABS TAKE 1 TAB DAILY VERAPAMIL HCL CR 180 MG CR-TABS VERAPAMIL HCL Inactive HYDROCODONE-ACETAMINOPHEN 5-325 MG TABS 1 q 4-6 hrs prn HYDROCODONE-ACETAMINOPHEN 5-325 MG TABS 967643 HYDROCODONE-ACETAMINOPHEN Inactive ROBAXIN-750 750 MG TABS 2 four times a day for 3 days as needed for muscle spasm, then 1 four times a day as needed ROBAXIN-750 750 MG TABS 575985 METHOCARBAMOL Inactive NITROSTAT 0.4 MG SUBL as directed NITROSTAT 0.4 MG SUBL 047451 NITROGLYCERIN Inactive METHOCARBAMOL 750 MG TABS 1 PO QID PRN METHOCARBAMOL 750 MG TABS 460058 METHOCARBAMOL Inactive VALIUM 5 MG TAB 1 po 30 minutes prior to your MRI VALIUM 5 MG TAB 068124 DIAZEPAM Inactive ANUSOL-HC 25 MG SUPPOSITORY 1 suppository rectally each evening as needed for anal fissure ANUSOL-HC 25 MG SUPPOSITORY 7302290 HYDROCORTISONE JAYDEN (RECTAL) Inactive ANUSOL-HC 25 MG SUPPOSITORY 1 rectally twice a day as needed for hemorrhoids ANUSOL-HC 25 MG SUPPOSITORY 3429558 HYDROCORTISONE JAYDEN (RECTAL) Inactive FLONASE 50 MCG/ACT SUSP 1 spray each nostril am and hs FLONASE 50 MCG/ACT SUSP FLUTICASONE PROPIONATE Inactive DICLOFENAC SODIUM 75 MG TBEC 1 tablet by q 12 hours PRN headaches DICLOFENAC SODIUM 75 MG TBEC 027255 DICLOFENAC SODIUM Inactive PA VITAMIN D-3 2000 UNIT CAPS 1 CAP PO DAILY PA VITAMIN D-3 2000 UNIT CAPS CHOLECALCIFEROL Inactive PREVACID 30 MG CPDR Take 1 tablet by mouth daily-PRN PREVACID 30 MG CPDR 317453 LANSOPRAZOLE Inactive DOXYCYCLINE HYCLATE 100 MG TAB 1 tab twice a day for 14 days 2013 DOXYCYCLINE HYCLATE 100 MG TAB 0216180 DOXYCYCLINE HYCLATE Inactive XOPENEX 1.25 MG/3ML NEBU 1 neb every 4 hours if needed for cough/congestion XOPENEX 1.25 MG/3ML NEBU 955125 LEVALBUTEROL HCL Inactive CYCLOBENZAPRINE HCL 10 MG TABS 1/2 - 1 tab by mouth three times daily if needed for spasms/pain CYCLOBENZAPRINE HCL 10 MG TABS 570728 CYCLOBENZAPRINE HCL Inactive ALBUTEROL SULFATE 0.083 % NEBU SOLN one vial per nebulizer every 4-6 hours as needed ALBUTEROL SULFATE 0.083 % NEBU SOLN 685601 ALBUTEROL SULFATE Inactive CEFTIN 500 MG TAB 1 twice a day CEFTIN 500 MG TAB 792736 CEFUROXIME AXETIL Inactive ZOFRAN ODT 4 MG TBDP 1 pill dissolved by mouth every 4 hours if needed for nausea ZOFRAN ODT 4 MG TBDP 487946 ONDANSETRON Inactive ADULT ASPIRIN EC LOW STRENGTH 81 MG TBEC Take 1 tablet by mouth daily 2014 ADULT ASPIRIN EC LOW STRENGTH 81 MG TBEC 646505 ASPIRIN Inactive CALCIUM 600+D PLUS MINERALS 600-400 [...] or an apple NIACIN 500 MG TABS 813730 NIACIN Inactive NIASPAN 500 MG ORAL CR-TABS 1 pill nightly x 1 week, then 2 pills nightly x 1 week, then 3 pills nightly x 1 week, then 4 pills nightly NIASPAN 500 MG ORAL CR-TABS NIACIN (ANTIHYPERLIPIDEMIC) Inactive OXYCODONE HCL 5 MG ORAL CAPS 1 TAB PO Q HS OXYCODONE HCL 5 MG ORAL CAPS 5049394 OXYCODONE HCL Inactive FLUTICASONE PROPIONATE 50 MCG/ACT SUSP 1 to 2 sprays each nostril daily 04/21 FLUTICASONE PROPIONATE 50 MCG/ACT SUSP 7060550 FLUTICASONE PROPIONATE Inactive POLYTRIM 12182-8.1 UNIT/ML-% SOLN 1 gtt to affected eye q3h x 7 days POLYTRIM 99824-1.1 UNIT/ML-% SOLN 541930 POLYMYXIN B- TRIMETHOPRIM Inactive CHERATUSSIN AC 100-10 MG/5ML SYRP 1 tsp by mouth every 4 hours as needed for cough CHERATUSSIN AC 100-10 MG/5ML SYRP 477072 GUAIFENESIN-CODEINE Inactive LEVOTHYROXINE SODIUM 75 MCG TABS Take 1 tab daily LEVOTHYROXINE SODIUM 75 MCG TABS 130633 LEVOTHYROXINE SODIUM Inactive BACTRIM DS 800-160 MG TAB 1 tab by mouth twice daily BACTRIM DS 800-160 MG TAB 472052 TRIMETHOPRIM-SULFAMETHOXAZOLE Inactive AZITHROMYCIN 250 MG TABS 2 po qd x 1 day, then 1 po qd x 4 days AZITHROMYCIN 250 MG TABS 2311564 AZITHROMYCIN Inactive CEFDINIR 300 MG CAPS by mouth twice a day CEFDINIR 300 MG CAPS 406766 CEFDINIR Inactive AZITHROMYCIN 250 MG TABS 2 pills on day 1, then 1 pill daily x 4 days AZITHROMYCIN 250 MG TABS 3093763 AZITHROMYCIN Inactive DOXYCYCLINE HYCLATE 100 MG CAP 1 cap by mouth twice daily DOXYCYCLINE HYCLATE 100 MG CAP 2490746 DOXYCYCLINE HYCLATE Inactive FUROSEMIDE 20 MG TABS 1 pill by mouth daily, for edema FUROSEMIDE 20 MG TABS 958934 FUROSEMIDE Inactive AZITHROMYCIN 250 MG TABS 2 po qd x 1 day, then 1 po qd x 4 days AZITHROMYCIN 250 MG TABS 0327174 AZITHROMYCIN Inactive CEFTIN 500 MG TAB 1 twice a day CEFTIN 500 MG TAB 806259 CEFUROXIME AXETIL Inactive CEFDINIR 300 MG CAPS 1 po BID x 10 days CEFDINIR 300 MG CAPS 452439 CEFDINIR Inactive BACTRIM DS 800-160 MG TAB 1 tab by mouth twice daily BACTRIM DS 800-160 MG TAB 050781 TRIMETHOPRIM-SULFAMETHOXAZOLE Inactive PREDNISONE 20 MG TAB 2 tabs daily for 3 days, 1 tab daily for 3 days, 1/2 tab daily for 2 days PREDNISONE 20 MG TAB 589336 PREDNISONE Inactive Immunizations Vaccine Administration Date Value Standard Description Seasonal influenza vaccine, injectable, containing preservative, for > 3 years old (Afluria, FluLaval, Fluzone, Fluvirin, Fluarix, Agriflu(>=18 yo)) Fluzone (>3 yrs.) [RQX150] Influenza, seasonal, injectable influenza immunization (Flu Vax) has been administered Influenza - Unspecified Formulation [CVX88] influenza virus vaccine, unspecified formulation pneumococcal immunization administered Pneumovax 23 [CVX33] pneumococcal polysaccharide vaccine, 23 valent Seasonal influenza vaccine, injectable, containing preservative, for > 3 years old (Afluria, FluLaval, Fluzone, Fluvirin, Fluarix, Agriflu(>=18 yo)) Fluzone (>3 yrs.) [LKG182] Influenza, seasonal, injectable dT (Diphtheria and Tetanus) booster given given Td(adult) unspecified formulation Boostrix (Tetanus toxoid, reduced diphtheria toxoid and acellular pertussis vaccine, adsorbed), booster Boostrix [VYS919] tetanus toxoid, reduced diphtheria toxoid, and acellular [...] Panel - Chemistry sodium, serum 142 mmol/L 146-391 2289/06/30 potassium, serum 4.4 mmol/L 3.5-5.2 chloride, serum [...] Metabolic Panel, Erythrocyte Sed Rate - Chemistry chloride, serum 105 mmol/L 98-107 blood glucose 90 mg/dL 65-110 urea nitrogen, blood 19 mg/dL 7-18 creatinine, serum 1.35 mg/dL 0.55-1.30 alanine aminotransferase (SGPT), serum 33 U/L 12-78 aspartate aminotransferase (SGOT), serum 23 U/L 15-37 calcium, serum 8.3 mg/dL 8.5-10.1 bilirubin, serum, total 0.20 mg/dL 0.00-1.00 potassium, serum 4.2 mmol/L 3.5-5.2 carbon dioxide, venous blood 22.4 mmol/L 21.0-32.0 sodium, serum 139 mmol/L 136-145 Lab Report: Comp. Metabolic Panel, UADIP W/MICRO, AUTO, Thyroid Stimulat ... - Chemistry TSH 0.63 m[iU]/mL 0.36-3.74 thyroxine, serum, free 0.80 ng/dL 0.76-1.46 sodium, serum 143 mmol/L 566-675 9783/05/02 carbon dioxide, venous blood 25.6 mmol/L 21.0-32.0 [...] Urinalysis urobilinogen, urine, semiquantitative (dipstick) 0.2 Normal glucose, urine, semiquantitative Negative Negative ketones, urine, by test strip Negative Negative bilirubin, urine Negative Negative urine color Yellow Colorless;Lightyellow;Straw;Yellow appearance, urine Clear Clear specific gravity, urine 1.015 1.000-1.030 pH, urine, semiquantitative 6.5 5.0-8.5 leukocyte esterase, urine, by dipstick Negative Negative nitrite, urine, semiquantitative Negative Negative Lab Report: Lipid Panel, HEPATIC PANEL - Chemistry cholesterol, serum 166 mg/dL 533-787 9926/12/06 triglyceride, serum, fasting 86 mg/dL 30-200 HDL [...] dipstick Negative Negative sodium, serum 142 mmol/L 534-017 4154/07/18 carbon dioxide, venous blood 27.8 mmol/L 21.0-32.0 [...] negative Encounters Code Encounter Date Provider Facility CPT-10991 Level 3 Est. Patient 17:43:55 RAW MATERIAL HANDLER Gab Padron MD [facility] CPT-72489 Level 3 Est. Patient 17:07:49 RAW MATERIAL HANDLER Jared Og MD [facility] CPT-49515 Level 4 Est. Patient 19:55:18 RAW MATERIAL HANDLER Jraed Og MD [facility] CPT-28726 Level 3 Est. Patient 20:13:34 RAW MATERIAL HANDLER Jared Og MD [facility] CPT-98913 Level 4 Est. Patient 16:31:27 CDT Gab Padron MD [facility] CPT-77719 Level 2 Est. Patient 12:23:38 CDT Jared Og MD [facility] CPT-48458 Level 3 Est. Patient 11:01:51 CDT Gab Padron MD [facility] CPT-92046 Level 3 Est. Patient 15:27:02 CDT Jared Og MD [facility] CPT-40538 Level 4 Est. Patient 09:25:27 CDT Gab Padron MD [facility] CPT-66233 Level 3 Est. Patient 10:29:41 CDT Rodrigo Sarah [facility] CPT-86686 Level 4 Est. Patient 17:51:05 CDT Gab Padron MD [facility] CPT-68784 Level 3 Est. Patient 14:18:08 CDT Gab Padron MD [facility] CPT-95437 Level 4 Est. Patient 10:18:54 CDT Gab Padron MD [facility] CPT-54120 Level 3 Est. Patient 11:30:07 CDT Rodrigo Sarah [facility] CPT-48989 Level 4 Est. Patient 21:02:30 RAW MATERIAL HANDLER Gab Padron MD [facility] CPT-39073 Level 3 Est. Patient 11:02:19 RAW MATERIAL HANDLER Gab Padron MD [facility]-27959 Level 4 Est. Patient 22:24:31 RAW MATERIAL HANDLER Gab Padron MD [facility]-34433 Level 3 Est. Patient 18:33:46 RAW MATERIAL HANDLER Gab Padron MD [facility]-57571 Level 3 Est. Patient 16:19:11 CDT Yolande Lindsay MD [facility]-64373 Level 3 Est. Patient 18:59:14 CDT Yolande Lindsay MD [facility]-50907 Level 4 Est. Patient 21:29:26 CDT Yolande Lindsay MD [facility]-84416 Level 3 Est. Patient 07:37:45 CDT Yolande Lindsay MD [facility]-93381 Level 3 Est. Patient 17:03:46 CDT Yolande Lindsay MD [facility]-10057 Level 4 Est. Patient 20:02:13 RAW MATERIAL HANDLER Yolande Lindsay MD [facility]-90824 Level 3 Est. Patient 16:02:07 RAW MATERIAL HANDLER Alexis Ordaz MD [facility]-94739 Level 3 Est. Patient 12:41:24 RAW MATERIAL HANDLER Yolande Lindsay MD [facility]-30272 Level 3 Est. Patient 15:41:20 RAW MATERIAL HANDLER Yloande Lindsay MD [facility]-81354 Level 3 Est. Patient 13:20:02 RAW MATERIAL HANDLER Yolande Lindsay MD [facility]-50868 Level 3 Est. Patient 15:00:38 CDT Jared Og MD [facility]-86100 Level 3 Est. Patient 10:22:32 CDT Yolande Lindsay MD [facility] CPT-84037 Level 3 Est. Patient 17:12:58 CDT Yolande Lindsay MD [facility]-98394 Level 4 Est. Patient 13:30:58 CDT Yolande Lindsay MD [facility]-95340 Level 4 New Patient 09:02:42 CDT Jared Og MD [facility]-03401 Level 3 Est. Patient 08:19:07 CDT Yolande Lindsay MD [facility]-24507 Level 3 Est. Patient 12:00:13 RAW MATERIAL HANDLER Gab Padron MD [facility]-49960 Level 3 Est. Patient 16:15:23 RAW MATERIAL HANDLER Yolande Lindsay MD [facility]-82569 Level 2 Est. Patient 19:47:15 CDT Yolande Lindsay MD [facility] CPT-81904 Level 3 Est. Patient 21:38:31 CDT Yolande Lindsay MD [facility]-42301 Level 3 Est. Patient 10:25:12 CDT Adiel PERAZA [facility] CPT-61643 Level 4 Est. Patient 10:51:58 CDT Yolande Lindsay MD [facility] CPT-35092 Level 3 Est. Patient 14:04:55 RAW MATERIAL HANDLER Rodrigo Sarah [facility] CPT-83343 Level 3 Est. Patient 10:46:35 RAW MATERIAL HANDLER Rodrigo Sarah [facility] CPT-97249 Level 3 Est. Patient 14:24:37 RAW MATERIAL HANDLER Yolande Lindsay MD [facility]-93230 Level 3 Est. Patient 17:41:58 RAW MATERIAL HANDLER Yolande Lindsay MD [facility]-72013 Level 2 Est. Patient 22:01:41 RAW MATERIAL HANDLER Rodrigo Sarah [facility] CPT-66404 Level 2 Est. Patient 22:01:11 RAW MATERIAL HANDLER Rodrigo Sarah [facility] CPT-96147 Level 3 Est. Patient 10:12:29 RAW MATERIAL HANDLER Rodrigo Sarah [facility] CPT-33964 Level 3 Est. Patient 11:05:44 CDT Alexis Ordaz MD [facility] CPT-35246 Level 3 Est. Patient 14:57:20 CDT Yolande Lindsay MD [facility] CPT-19652 Level 3 Est. Patient 14:40:57 CDT Yolande Lindsay MD [facility] CPT-98127 Level 3 Est. Patient 20:55:40 CDT Yolande Lindsay MD [facility] CPT-36983 Level 3 Est. Patient 12:42:38 RAW MATERIAL HANDLER Yolande Lindsay MD [facility] CPT-73665 Level 3 Est. Patient 11:54:49 RAW MATERIAL HANDLER Des Hines MD [facility] CPT-82347 Level 3 Est. Patient 17:06:38 CDT Dewayne PERAZA [facility] Procedures Code Procedure Name Date Entry Date Standard Description CPT-68257 Hip, complete, 2-3 views - XRAY USE ONLY 17:19:04 RAW MATERIAL HANDLER CPT-94872 Venipuncture Draw Fee 08:37:59 RAW MATERIAL HANDLER CPT-88332 Liver Profile - LAB USE ONLY 08:37:59 RAW MATERIAL HANDLER CPT-18326 Lipid - LAB USE ONLY 08:37:58 RAW MATERIAL HANDLER CPT-95674 First Vx - Ix admin via ID IM or jet injects without counseling by physician 11:52:31 CDT CPT-78656 Fluzone Preservative Free Intramuscular Suspension 11:52 :31 CDT CPT-49690 Foot, left, comp min 3V - XRAY USE ONLY 09:24:54 CDT CPT-73842 Abd single AP View - XRAY USE ONLY 11:16:17 CDT CPT-37139 T spine AP/ Lat - XRAY USE ONLY 09:34:21 CDT CPT-88504 Chest 2V Frontal and Lat - XRAY USE ONLY 10:48:51 CDT CPT-26021 LS spine comp w obliq 13:28:00 RAW MATERIAL HANDLER CPT-J1040 Depo Medrol 80 mg (Methyl Prednisolone Acetate) 10:51: 28 RAW MATERIAL HANDLER CPT-J1100 Decadron 8mg (Dexamethasone) 10:51:28 RAW MATERIAL HANDLER CPT-83188 Abx/Therapy Injection 10:51:28 RAW MATERIAL HANDLER CPT-J1100 Decadron 8mg (Dexamethasone) 21:02:30 RAW MATERIAL HANDLER CPT-J1040 Depo Medrol 80 mg (Methyl Prednisolone Acetate) 21:02: 30 RAW MATERIAL HANDLER [id number] Event Monitor - MC Transmission 09:12:32 CDT 08/06 [id number] Event Monitor - MC review and interp 09:12:32 CDT [id number] Event Monitor - MC recording 09:12:32 CDT CPT-55068 EKG Trac and Interp 16:50:22 CDT CPT-J1030 Depo Medrol 40 mg (Methyl Prednisolone Acetate) 17:05: 54 CDT CPT-J1100 Decadron 4mg (Dexamethasone) 17:05:54 CDT CPT-25608 Abx/Therapy Injection 17:05:54 CDT CPT-J1100 Decadron 4mg (Dexamethasone) 16:55:28 CDT CPT-J1030 Depo Medrol 40 mg (Methyl Prednisolone Acetate) 16:55: 28 CDT CPT-32267 Ankle Complete - Min 3V 15:58:50 CDT CPT-10750 Knee 3V 15:58:50 CDT CPT-33136 Hip comp min 2V 15:58:50 CDT CPT-J2270 Morphine Sulfate 10 mg 14:25:44 RAW MATERIAL HANDLER CPT-J2550 Phenergan 12.5 mg (Promethazine) 14:25:44 RAW MATERIAL HANDLER CPT-43622 Abx/Therapy Injection 14:25:44 RAW MATERIAL HANDLER CPT-J2550 Phenergan 12.5 mg (Promethazine) 14:08:03 RAW [employer]ERIAL HANDLER CPT-J2270 Morphine Sulfate 10 mg 14:08:03 RAW MATERIAL HANDLER CPT-32762 Bladder Scan 15:00:38 CDT CPT-TCMM Transitional Care Mgmt-Moderate 09:52:22 CDT CPT-J1030 Depo Medrol 40 mg (Methyl Prednisolone Acetate) 10:55: 18 CDT CPT-J1100 Decadron 4mg (Dexamethasone) 10:55:18 CDT CPT-25729 Abx/Therapy Injection 10:55:18 CDT CPT-J1030 Depo Medrol 40 mg (Methyl Prednisolone Acetate) 10:22: 32 CDT CPT-J1100 Decadron 4mg (Dexamethasone) 10:22:32 CDT CPT-56837 Postop F/U Visit 14:37:13 CDT CPT-10870 Ankle Complete - Min 3V 17:11:58 CDT CPT-11927 Foot comp min 3V 17:11:58 CDT CPT-80706 Bladder Scan 09:56:58 CDT CPT-37410 Postop F/U Visit 09:56:58 CDT CPT-66525 Cystoscopy 09:02:42 CDT CPT-76660 Bladder Scan 09:02:42 CDT CPT-13130 Abd single AP View 16:00:35 CDT CPT-66911 Administration single or combination vaccine inc oral 10 :15:43 CDT CPT-48643 Influenza split virus > age 3 10:15:43 CDT CPT-54834 Nail Avulsion 09:24:57 CDT CPT-OV Office Visit 11:15:41 CDT CPT-04027 Abx/Therapy Injection 10:51:30 CDT CPT-J3301 Kenalog 40 mg (Triamcinolone Acetonide) 10:25:12 CDT CPT-J1100 Decadron 4mg (Dexamethasone) 10:25:12 CDT CPT-80062 Anoscopy diagnostic 10:36:12 CDT CPT-OV Office Visit 15:34:31 CDT CPT-83311 Abx/Therapy Injection 08:21:15 RAW MATERIAL HANDLER CPT-J1885 Toradol 60 mg (Ketorolac) 10:46:35 RAW MATERIAL HANDLER CPT-OV Office Visit 19:51:16 RAW MATERIAL HANDLER CPT-88080 Spec Collection and Handling Fee 14:34:18 RAW MATERIAL HANDLER CPT-PV Prev. Care Visit 14:19:18 RAW MATERIAL HANDLER CPT-52592 Postop F/U Visit 14:47:51 RAW MATERIAL HANDLER CPT-39749 Postop F/U Visit 15:15:14 RAW [employer]ERIAL HANDLER CPT-14765 Postop F/U Visit 14:41:43 CDT CPT-85963 Postop F/U Visit 15:47:46 CDT CPT-OV Office Visit 15:27:23 CDT CPT-OV Office Visit 17:20:34 CDT CPT-02881 Abx/Therapy Injection 15:05:57 CDT CPT-J1100 Decadron 8mg (Dexamethasone) 14:44:57 CDT CPT-J1040 Depo Medrol 80 mg (Methyl Prednisolone Acetate) 14:44: 57 CDT CPT-JTINJ Joint Injection 10:17:37 CDT CPT-77128 Administration 2+ single or combination vaccines inc oral 13:01:46 RAW MATERIAL HANDLER CPT-20072 Administration single or combination vaccine inc oral 13 :01:46 RAW MATERIAL HANDLER CPT-12632 Pneumovax 13:01:46 RAW MATERIAL HANDLER CPT-39837 Influenza split virus > age 3 13:01:46 RAW MATERIAL HANDLER CPT-62048 Administration single or combination vaccine inc oral 08 :56:49 CDT [facility]-69348 Tdap 08:56:49 CDT
--- OUTSIDE RECORDS SUMMARY | 2017-03-21 23:42 | XMS REPORT | Clinical Summary ---
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 Jillina Frazellilian MARKETING PLANNING MANAGER 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 Anemia 285.9 Active Gab Padron MD Anemia, unspecified Conjunctivitis 372.30 Active Jillnacho Sarah APRN Conjunctivitis, unspecified Sinusitis 473.9 Active Silvestrellina Frazell MARKETING PLANNING MANAGER Unspecified sinusitis (chronic) FOOT PAIN, RIGHT ICD-729.5 [...] TABS Take 1 tab daily LEVOTHYROXINE SODIUM 97651116985 No Longer Active Mariana FLEMING Active SYNTHROID 88 MCG ORAL TABS Take one by mouth daily LEVOTHYROXINE SODIUM 44412878970 Active Mariana FLEMING Active CHERATUSSIN AC 100-10 MG/5ML SYRP 1 tsp by mouth every 4 hours as needed for cough GUAIFENESIN-CODEINE 94749330793 No Longer Active Gab Padron MD Active POLYTRIM 70484-1.1 UNIT/ML-% SOLN 1 gtt to affected eye q3h x 7 days POLYMYXIN B-TRIMETHOPRIM 17248896057 No Longer Active Gab Padron MD Active FLUTICASONE PROPIONATE 50 MCG/ACT SUSP 1 to 2 sprays each nostril daily 04/21 FLUTICASONE PROPIONATE 97359134001 No Longer Active Gab Padron MD Active TRILEPTAL 600 MG TABS Take one 1 tablet in Am and 1 tablet at night OXCARBAZEPINE 57468635313 Active Gab Padron MD Active CEFDINIR 300 MG CAPS 1 po BID x 10 days CEFDINIR 13973908605 No Longer Active Rodrigo Sarah APRN Active CEFTIN 500 MG TAB 1 twice a day CEFUROXIME AXETIL 34328318677 No Longer Active Gab Padron MD Active AZITHROMYCIN 250 MG TABS 2 po qd x 1 day, then 1 po qd x 4 days AZITHROMYCIN 91642258601 No Longer Active Rodrigo Sarah APRN Active CLARITIN 10 MG TAB 1 tablet by mouth daily as needed for allergies LORATADINE 87795920543 Active Rodrigo Sarah APRN Active OXYCODONE HCL 5 MG ORAL CAPS 1 TAB PO Q HS OXYCODONE HCL 56980050295 No Longer Active Rodrigo Sarah APRN Active NIASPAN 500 MG ORAL CR-TABS 1 pill nightly x 1 week, then 2 pills nightly x 1 week, then 3 pills nightly x 1 week, then 4 pills nightly NIACIN (ANTIHYPERLIPIDEMIC) 92916568818 No Longer Active Rodrigo Sarah APRN Active NIACIN 500 MG TABS 1 pill by mouth nightly x 1 week, then 2 pills x 1 week, then 3 pills x 1 week, then 4 pills nightly - take after evening meal, with applesauce or an apple NIACIN 21327467226 No Longer Active Yolande Lindsay MD PhD Active FISH OIL 1000 MG CAPS 3 pills daily OMEGA-3 FATTY ACIDS 42368998012 Active Yolande Lindsay MD PhD Active TRIAMCINOLONE ACETONIDE 0.1 % CREA apply bid sparingly to rash TRIAMCINOLONE ACETONIDE 90444336211 Active Yolande Lindsay MD PhD Active FUROSEMIDE 20 MG TAB 1 tablet by mouth daily FUROSEMIDE 61313896298 Active Yolande Lindsay MD PhD Active LISINOPRIL 20 MG ORAL TABS 1 tab by mouth daily LISINOPRIL 99589563800 Active Gab Padron MD Active FUROSEMIDE 20 MG TABS 1 pill by mouth daily, for edema FUROSEMIDE 26064268728 No Longer Active Yolande Lindsay MD PhD Active ATORVASTATIN CALCIUM 10 MG TABS 1 pill by mouth daily, for cholesterol 09/06 ATORVASTATIN CALCIUM 90250592297 Active Yolande Lindsay MD PhD Active CALCIUM 600+D PLUS MINERALS 600-400 MG-UNIT ORAL CHEW 1 tab by mouth daily CALCIUM CARBONATE-VIT D-MIN 57085256808 No Longer Active Yolande Lindsay MD PhD Active CYCLOBENZAPRINE HCL 10 MG TABS 1 tablet by mouth three times daily as needed for muscle spasm/pain CYCLOBENZAPRINE HCL 60374362616 Active Yolande Lindsay MD PhD Active ONDANSETRON 4 MG TBDP 1 q4h PRN nausea ONDANSETRON 06511330704 Active Yolande Lindsay MD PhD Active ADULT ASPIRIN EC LOW STRENGTH 81 MG TBEC Take 1 tablet by mouth daily 2014 ASPIRIN 64600759618 No Longer Active Yolande Lindsay MD PhD Active ZOFRAN ODT 4 MG TBDP 1 pill dissolved by mouth every 4 hours if needed for nausea ONDANSETRON 07151138488 No Longer Active Yolande Lindsay MD PhD Active CEFTIN 500 MG TAB 1 twice a day CEFUROXIME AXETIL 26563024521 No Longer Active Yolande Lindsay MD PhD Active ALBUTEROL SULFATE 0.083 % [facility] SOLN one vial per nebulizer every 4-6 hours as needed ALBUTEROL SULFATE 67354535490 No Longer Active Alexis Ordaz MD Active DOXYCYCLINE HYCLATE 100 MG CAP 1 cap by mouth twice daily DOXYCYCLINE HYCLATE 72444440350 No Longer Active Yolande Lindsay MD PhD Active CYCLOBENZAPRINE HCL 10 MG TABS 1/2 - 1 tab by mouth three times daily if needed for spasms/pain CYCLOBENZAPRINE HCL 75887387105 No Longer Active Yolande Lindsay MD PhD Active AZITHROMYCIN 250 MG TABS 2 pills on day 1, then 1 pill daily x 4 days AZITHROMYCIN 13035939158 No Longer Active Yolande Lindsay MD PhD Active XOPENEX 1.25 MG/3ML NEBU 1 neb every 4 hours if needed for cough/congestion LEVALBUTEROL HCL 87330515370 No Longer Active Yolande Lindsay MD PhD Active DOXYCYCLINE HYCLATE 100 MG TAB 1 tab twice a day for 14 days 2013 DOXYCYCLINE HYCLATE 84046731035 No Longer Active Yolande Lindsay MD PhD Active PREVACID 30 MG CPDR Take 1 tablet by mouth daily-PRN LANSOPRAZOLE 33198206853 No Longer Active Yolande Lindsay MD PhD Active PA VITAMIN D-3 2000 UNIT CAPS 1 CAP PO DAILY CHOLECALCIFEROL 28835177862 No Longer Active Yolande Lindsay MD PhD Active CEFDINIR 300 MG CAPS by mouth twice a day CEFDINIR 41441569834 No Longer Active Gab Padron MD Active TOPAMAX 50 MG TABS 1 PO twice daily TOPIRAMATE 78995872201 Active Yolande Lindsay MD PhD Active AZITHROMYCIN 250 MG TABS 2 po qd x 1 day, then 1 po qd x 4 days AZITHROMYCIN 29057186391 No Longer Active Yolande Lindsay MD PhD Active DICLOFENAC SODIUM 75 MG TBEC 1 tablet by q 12 hours PRN headaches DICLOFENAC SODIUM 26431661044 No Longer Active Yolande Lindsay MD PhD Active FLONASE 50 MCG/ACT SUSP 1 spray each nostril am and hs FLUTICASONE PROPIONATE 02025767592 No Longer Active Todd Callaway MD Active ANUSOL-HC 25 MG SUPPOSITORY 1 rectally twice a day as needed for hemorrhoids HYDROCORTISONE JAYDEN (RECTAL) 47669879965 No Longer Active Yolande Lindsay MD PhD Active ANUSOL-HC 25 MG SUPPOSITORY 1 suppository rectally each evening as needed for anal fissure HYDROCORTISONE JAYDEN (RECTAL) 37363442714 No Longer Active Bozena JaredEDELMIRAFeliciano Active VALIUM 5 MG TAB 1 po 30 minutes prior to your MRI DIAZEPAM 63317706552 No Longer Active LONNIE Iglesias Active METHOCARBAMOL 750 MG TABS 1 PO QID PRN METHOCARBAMOL 05478699369 No Longer Active Daphne Wetzel MARKETING PLANNING MANAGER Active NITROSTAT 0.4 MG SUBL as directed NITROGLYCERIN 23900802541 No Longer Active Rodrigo Sarah MARKETING PLANNING MANAGER Active ROBAXIN-750 750 MG TABS 2 four times a day for 3 days as needed for muscle spasm, then 1 four times a day as needed METHOCARBAMOL 98218737893 No Longer Active Rodrigo Sarah APRN Active HYDROCODONE-ACETAMINOPHEN 5-325 MG TABS 1 q 4-6 hrs prn HYDROCODONE-ACETAMINOPHEN 74189636389 No Longer Active Silvestrellina Tyrel ZAPATAN Active VERAPAMIL HCL CR 180 MG CR-TABS TAKE 1 TAB DAILY VERAPAMIL HCL 41007201715 No Longer Active Yolande Lindsay MD PhD Active BACTRIM DS 800-160 MG TAB 1 tab by mouth twice daily TRIMETHOPRIM-SULFAMETHOXAZOLE 74586110853 No Longer Active Yolande Lindsay MD PhD Active NEXIUM 40 MG PACK 1 by mouth daily ESOMEPRAZOLE MAGNESIUM 11816172318 No Longer Active Des Hines MD Active EPIPEN 2-CHARLETTE 0.3 MG/0.3ML OMARI as need for allergic reaction EPINEPHRINE 91158465485 Active Yolande Lindsay MD PhD Active NEXIUM 40 MG CPDR 1 PO Q D DAY ESOMEPRAZOLE MAGNESIUM 21236741279 No Longer Active Sadia Perry RN Active ALBUTEROL SULFATE 0.083 % NEBU SOLN one vial per nebulizer every 4-6 hours as needed ALBUTEROL SULFATE 0.083 % NEBU SOLN 874908 ALBUTEROL SULFATE Inactive ANUSOL-HC 25 MG SUPPOSITORY 1 suppository rectally each evening as needed for anal fissure ANUSOL-HC 25 MG SUPPOSITORY 9510046 HYDROCORTISONE JAYDEN (RECTAL) Inactive ANUSOL-HC 25 MG SUPPOSITORY 1 rectally twice a day as needed for hemorrhoids ANUSOL-HC 25 MG SUPPOSITORY 3121676 HYDROCORTISONE JAYDEN (RECTAL) Inactive BACTRIM DS 800-160 MG TAB 1 tab by mouth twice daily BACTRIM DS 800-160 MG TAB 315778 TRIMETHOPRIM-SULFAMETHOXAZOLE Inactive CEFTIN 500 MG TAB 1 twice a day CEFTIN 500 MG TAB 110634 CEFUROXIME AXETIL Inactive CEFTIN 500 MG TAB 1 twice a day CEFTIN 500 MG TAB 399192 CEFUROXIME AXETIL Inactive CHERATUSSIN AC 100-10 MG/5ML SYRP 1 tsp by mouth every 4 hours as needed for cough CHERATUSSIN AC 100-10 MG/5ML SYRP 612175 GUAIFENESIN-CODEINE Inactive CYCLOBENZAPRINE HCL 10 MG TABS 1/2 - 1 tab by mouth three times daily if needed for spasms/pain CYCLOBENZAPRINE HCL 10 MG TABS 551210 CYCLOBENZAPRINE HCL Inactive DOXYCYCLINE HYCLATE 100 MG CAP 1 cap by mouth twice daily DOXYCYCLINE HYCLATE 100 MG CAP 8224372 DOXYCYCLINE HYCLATE Inactive DOXYCYCLINE HYCLATE 100 MG TAB 1 tab twice a day for 14 days 2013 DOXYCYCLINE HYCLATE 100 MG TAB 6069728 DOXYCYCLINE HYCLATE Inactive FUROSEMIDE 20 MG TABS 1 pill by mouth daily, for edema FUROSEMIDE 20 MG TABS 137981 FUROSEMIDE Inactive LEVOTHYROXINE SODIUM 75 MCG TABS Take 1 tab daily LEVOTHYROXINE SODIUM 75 MCG TABS 725179 LEVOTHYROXINE SODIUM Inactive METHOCARBAMOL 750 MG TABS 1 PO QID PRN METHOCARBAMOL 750 MG TABS 218766 METHOCARBAMOL Inactive NIACIN 500 MG TABS 1 pill by mouth nightly x 1 week, then 2 pills x 1 week, then 3 pills x 1 week, then 4 pills nightly - take after evening meal, with applesauce or an apple NIACIN 500 MG TABS 237607 NIACIN Inactive NITROSTAT 0.4 MG SUBL as directed NITROSTAT 0.4 MG SUBL NITROGLYCERIN Inactive POLYTRIM 76205-8.1 UNIT/ML-% SOLN 1 gtt to affected eye q3h x 7 days POLYTRIM 17097-1.1 UNIT/ML-% SOLN 812444 POLYMYXIN B- TRIMETHOPRIM Inactive ROBAXIN-750 750 MG TABS 2 four times a day for 3 days as needed for muscle spasm, then 1 four times a day as needed ROBAXIN-750 750 MG TABS 313355 METHOCARBAMOL Inactive VALIUM 5 MG TAB 1 po 30 minutes prior to your MRI VALIUM 5 MG TAB 127602 DIAZEPAM Inactive VERAPAMIL HCL CR 180 MG CR-TABS TAKE 1 TAB DAILY VERAPAMIL HCL CR 180 MG CR-TABS VERAPAMIL HCL Inactive PREVACID 30 MG CPDR Take 1 tablet by mouth daily-PRN PREVACID 30 MG CPDR 053211 LANSOPRAZOLE Inactive DICLOFENAC SODIUM 75 MG TBEC 1 tablet by q 12 hours PRN headaches DICLOFENAC SODIUM 75 MG TBEC 248563 DICLOFENAC SODIUM Inactive OXYCODONE HCL 5 MG ORAL CAPS 1 TAB PO Q HS OXYCODONE HCL 5 MG ORAL CAPS 8868029 OXYCODONE HCL Inactive AZITHROMYCIN 250 MG TABS 2 po qd x 1 day, then 1 po qd x 4 days AZITHROMYCIN 250 MG TABS 1098820 AZITHROMYCIN Inactive AZITHROMYCIN 250 MG TABS 2 po qd x 1 day, then 1 po qd x 4 days AZITHROMYCIN 250 MG TABS 1343958 AZITHROMYCIN Inactive AZITHROMYCIN 250 MG TABS 2 pills on day 1, then 1 pill daily x 4 days AZITHROMYCIN 250 MG TABS 5522599 AZITHROMYCIN Inactive ADULT ASPIRIN EC LOW STRENGTH 81 MG TBEC Take 1 tablet by mouth daily 2014 ADULT ASPIRIN EC LOW STRENGTH 81 MG TBEC 076710 ASPIRIN Inactive NIASPAN 500 MG ORAL CR-TABS 1 pill nightly x 1 week, then 2 pills nightly x 1 week, then 3 pills nightly x 1 week, then 4 pills nightly NIASPAN 500 MG ORAL CR-TABS NIACIN (ANTIHYPERLIPIDEMIC) Inactive CEFDINIR 300 MG CAPS 1 po BID x 10 days CEFDINIR 300 MG CAPS 20020708 CEFDINIR Inactive CEFDINIR 300 MG CAPS by mouth twice a day CEFDINIR 300 MG CAPS 20020708 CEFDINIR Inactive ZOFRAN ODT 4 MG TBDP 1 pill dissolved by mouth every 4 hours if needed for nausea ZOFRAN ODT 4 MG TBDP 048409 ONDANSETRON Inactive XOPENEX 1.25 MG/3ML NEBU 1 neb every 4 hours if needed for cough/congestion XOPENEX 1.25 MG/3ML NEBU 250068 LEVALBUTEROL HCL Inactive FLONASE 50 MCG/ACT SUSP 1 spray each nostril am and hs FLONASE 50 MCG/ACT SUSP FLUTICASONE PROPIONATE Inactive HYDROCODONE-ACETAMINOPHEN 5-325 MG TABS 1 q 4-6 hrs prn HYDROCODONE-ACETAMINOPHEN 5-325 MG TABS 656327 HYDROCODONE-ACETAMINOPHEN Inactive FLUTICASONE PROPIONATE 50 MCG/ACT SUSP 1 to 2 sprays each nostril daily 04/21 FLUTICASONE PROPIONATE 50 MCG/ACT SUSP 709180 FLUTICASONE PROPIONATE Inactive NEXIUM 40 MG PACK 1 by [...] Fluvirin, Fluarix, Agriflu(>=18 yo)) Fluzone (>3 yrs.) [RCE148] Influenza, seasonal, injectable influenza immunization (Flu Vax) has been administered Influenza - Unspecified Formulation [CVX88] influenza virus vaccine, unspecified formulation pneumococcal immunization administered Pneumovax 23 [CVX33] pneumococcal polysaccharide vaccine, 23 valent Seasonal influenza vaccine, injectable, containing preservative, for > 3 years old (Afluria, FluLaval, Fluzone, Fluvirin, Fluarix, Agriflu(>=18 yo)) Fluzone (>3 yrs.) [OXT211] Influenza, seasonal, injectable dT (Diphtheria and Tetanus) booster given given Td(adult) unspecified formulation Boostrix (Tetanus toxoid, reduced diphtheria toxoid and acellular pertussis vaccine, adsorbed), booster Boostrix [QCZ359] tetanus toxoid, reduced diphtheria toxoid, and acellular [...] Panel - Chemistry sodium, serum 145 mmol/L 335-972 9116/06/22 potassium, serum 3.9 mmol/L 3.5-5.2 chloride, serum 109 mmol/L 98-107 carbon dioxide, venous blood 23.4 mmol/L 21.0-32.0 blood glucose 92 mg/dL 65-110 calcium, serum 8.2 mg/dL 8.5-10.1 urea nitrogen, blood 24 mg/dL 7-18 creatinine, serum 1.30 mg/dL 0.60-1.30 Lab Report: [facility] Advanced Lipid and Inlammation Panel /68240 - Chemistry cholesterol, serum 198 mg/dL 828-000 5728/04/30 HDL cholesterol, serum 65 mg/dL > OR=46 triglyceride, serum, fasting 82 mg/dL LDL cholesterol, serum 117 mg/dL cholesterol/HDL ratio, serum 3.0 calc < OR=5.0 cholesterol, serum 148 mg/dL 420-850 8626/09/02 HDL cholesterol, serum 55 mg/dL > OR=46 [...] (L) - Chemistry sodium, serum 145 mmol/L 851-512 3295/09/02 potassium, serum 4.6 mmol/L 3.5-5.2 chloride, serum [...] 51 mg/dL 30-200 cholesterol, serum 173 mg/dL 524-010 0470/04/28 HDL cholesterol, serum 63 mg/dL 32-96 LDL [...] mg/dL Encounters Code Encounter Date Provider Facility CPT-66301 Level 4 Est. Patient 21:02:30 MEDICAL OFFICE SUPERVISOR Gab Padron MD [facility]-41529 Level 3 Est. Patient 11:02:19 MEDICAL OFFICE SUPERVISOR Gab Padron MD [facility]-64255 Level 4 Est. Patient 22:24:31 MEDICAL OFFICE SUPERVISOR Gab Padron MD [facility]-75466 Level 3 Est. Patient 18:33:46 MEDICAL OFFICE SUPERVISOR Gab Padron MD [facility]-32321 Level 3 Est. Patient 16:19:11 CDT Yolande Lindsay MD [facility]-57209 Level 3 Est. Patient 18:59:14 CDT Yolande Lindsay MD [facility]-00569 Level 4 Est. Patient 21:29:26 CDT Yolande Lindsay MD [facility]-13670 Level 3 Est. Patient 07:37:45 CDT Yolande Lindsay MD [facility]-89554 Level 3 Est. Patient 17:03:46 CDT Yolande Lindsay MD [facility]-92685 Level 4 Est. Patient 20:02:13 MEDICAL OFFICE SUPERVISOR Yolande Lindsay MD [facility]-86061 Level 3 Est. Patient 16:02:07 MEDICAL OFFICE SUPERVISOR Alexis Ordaz MD [facility]-16123 Level 3 Est. Patient 12:41:24 MEDICAL OFFICE SUPERVISOR Yolande Lindsay MD [facility]-26743 Level 3 Est. Patient 15:41:20 MEDICAL OFFICE SUPERVISOR Yolande Lindsay MD [facility]-14311 Level 3 Est. Patient 13:20:02 MEDICAL OFFICE SUPERVISOR Yolande Lindsay MD [facility]-65709 Level 3 Est. Patient 15:00:38 CDT Jared Og MD [facility]-79162 Level 3 Est. Patient 10:22:32 CDT Yolande Lindsay MD [facility] CPT-20710 Level 3 Est. Patient 17:12:58 CDT Yolande Lindsay MD [facility]-07497 Level 4 Est. Patient 13:30:58 CDT Yolande Lindsay MD [facility] CPT-47303 Level 4 New Patient 09:02:42 CDT Jared Og MD [facility]-67059 Level 3 Est. Patient 08:19:07 CDT Yolande Lindsay MD [facility]-61664 Level 3 Est. Patient 12:00:13 MEDICAL OFFICE SUPERVISOR Gab Padron MD [facility]-35578 Level 3 Est. Patient 16:15:23 MEDICAL OFFICE SUPERVISOR Yolande Lindsay MD [facility]-37112 Level 2 Est. Patient 19:47:15 CDT Yolande Lindsay MD [facility]-46231 Level 3 Est. Patient 21:38:31 CDT Yolande Lindsay MD [facility]-42265 Level 3 Est. Patient 10:25:12 CDT Adiel PERAZA [facility] CPT-87336 Level 4 Est. Patient 10:51:58 CDT Yolande Lindsay MD [facility]-54797 Level 3 Est. Patient 14:04:55 MEDICAL OFFICE SUPERVISOR Rodrigo Sarah [facility] CPT-21787 Level 3 Est. Patient 10:46:35 MEDICAL OFFICE SUPERVISOR Rodrigo Sarah [facility]-95201 Level 3 Est. Patient 14:24:37 MEDICAL OFFICE SUPERVISOR Yolande Lindsay MD [facility]-85813 Level 3 Est. Patient 17:41:58 MEDICAL OFFICE SUPERVISOR Yolande Lindsay MD [facility] CPT-35215 Level 2 Est. Patient 22:01:41 MEDICAL OFFICE SUPERVISOR Rodrigo Sarah [facility] CPT-49550 Level 2 Est. Patient 22:01:11 MEDICAL OFFICE SUPERVISOR Rodrigo Sarah [facility] CPT-25995 Level 3 Est. Patient 10:12:29 MEDICAL OFFICE SUPERVISOR Rodrigo Sarah [facility] CPT-88675 Level 3 Est. Patient 11:05:44 CDT Alexis Ordaz MD [facility] CPT-77535 Level 3 Est. Patient 14:57:20 CDT Yolande Lindsay MD [facility]-21648 Level 3 Est. Patient 14:40:57 CDT Yolande Lindsay MD [facility]-14643 Level 3 Est. Patient 20:55:40 CDT Yolande Lindsay MD [facility]-87053 Level 3 Est. Patient 12:42:38 MEDICAL OFFICE SUPERVISOR Yolande Lindsay MD [facility]-12595 Level 3 Est. Patient 11:54:49 MEDICAL OFFICE SUPERVISOR Des Hines MD [facility]-43340 Level 3 Est. Patient 17:06:38 CDT Dewayne PERAZA [facility] Procedures Code Procedure Name Date Entry Date Standard Description CPT-29922 LS spine comp w obliq 13:28:00 MEDICAL OFFICE SUPERVISOR CPT-J1040 Depo Medrol 80 mg (Methyl Prednisolone Acetate) 10:51: 28 MEDICAL OFFICE SUPERVISOR CPT-J1100 Decadron 8mg (Dexamethasone) 10:51:28 MEDICAL OFFICE SUPERVISOR CPT-75950 Abx/Therapy Injection 10:51:28 MEDICAL OFFICE SUPERVISOR CPT-J1100 Decadron 8mg (Dexamethasone) 21:02:30 MEDICAL OFFICE SUPERVISOR CPT-J1040 Depo Medrol 80 mg (Methyl Prednisolone Acetate) 21:02: 30 MEDICAL OFFICE SUPERVISOR [id number] Event Monitor - MC Transmission 09:12:32 CDT 08/06 [id number] Event Monitor - MC review and interp 09:12:32 CDT [id number] Event Monitor - MC recording 09:12:32 CDT CPT-91778 EKG Trac and Interp 16:50:22 CDT CPT-J1030 Depo Medrol 40 mg (Methyl Prednisolone Acetate) 17:05: 54 CDT CPT-J1100 Decadron 4mg (Dexamethasone) 17:05:54 CDT CPT-01578 Abx/Therapy Injection 17:05:54 CDT CPT-J1100 Decadron 4mg (Dexamethasone) 16:55:28 CDT CPT-J1030 Depo Medrol 40 mg (Methyl Prednisolone Acetate) 16:55: 28 CDT CPT-07574 Ankle Complete - Min 3V 15:58:50 CDT CPT-80797 Knee 3V 15:58:50 CDT CPT-39278 Hip comp min 2V 15:58:50 CDT CPT-J2270 Morphine Sulfate 10 mg 14:25:44 MEDICAL OFFICE SUPERVISOR CPT-J2550 Phenergan 12.5 mg (Promethazine) 14:25:44 MEDICAL OFFICE SUPERVISOR CPT-65512 Abx/Therapy Injection 14:25:44 MEDICAL OFFICE SUPERVISOR CPT-J2550 Phenergan 12.5 mg (Promethazine) 14:08:03 MEDICAL OFFICE SUPERVISOR CPT-J2270 Morphine Sulfate 10 mg 14:08:03 MEDICAL OFFICE SUPERVISOR CPT-76842 Bladder Scan 15:00:38 CDT CPT-TCMM Transitional Care Mgmt-Moderate 09:52:22 CDT CPT-J1030 Depo Medrol 40 mg (Methyl Prednisolone Acetate) 10:55: 18 CDT CPT-J1100 Decadron 4mg (Dexamethasone) 10:55:18 CDT CPT-81716 Abx/Therapy Injection 10:55:18 CDT CPT-J1030 Depo Medrol 40 mg (Methyl Prednisolone Acetate) 10:22: 32 CDT CPT-J1100 Decadron 4mg (Dexamethasone) 10:22:32 CDT CPT-01395 Postop F/U Visit 14:37:13 CDT CPT-99152 Ankle Complete - Min 3V 17:11:58 CDT CPT-94288 Foot comp min 3V 17:11:58 CDT CPT-15421 Bladder Scan 09:56:58 CDT CPT-78310 Postop F/U Visit 09:56:58 CDT CPT-92294 Cystoscopy 09:02:42 CDT CPT-32077 Bladder Scan 09:02:42 CDT CPT-33036 Abd single AP View 16:00:35 CDT CPT-05768 Administration single or combination vaccine inc oral 10 :15:43 CDT CPT-58670 Influenza split virus > age 3 10:15:43 CDT CPT-97378 Nail Avulsion 09:24:57 CDT CPT-OV Office Visit 11:15:41 CDT CPT-40424 Abx/Therapy Injection 10:51:30 CDT CPT-J3301 Kenalog 40 mg (Triamcinolone Acetonide) 10:25:12 CDT CPT-J1100 Decadron 4mg (Dexamethasone) 10:25:12 CDT CPT-64740 Anoscopy diagnostic 10:36:12 CDT CPT-OV Office Visit 15:34:31 CDT CPT-76425 Abx/Therapy Injection 08:21:15 MEDICAL OFFICE SUPERVISOR CPT-J1885 Toradol 60 mg (Ketorolac) 10:46:35 MEDICAL OFFICE SUPERVISOR CPT-OV Office Visit 19:51:16 MEDICAL OFFICE SUPERVISOR CPT-49682 Spec Collection and Handling Fee 14:34:18 MEDICAL OFFICE SUPERVISOR CPT-PV Prev. Care Visit 14:19:18 MEDICAL OFFICE SUPERVISOR CPT-53754 Postop F/U Visit 14:47:51 MEDICAL OFFICE SUPERVISOR CPT-64968 Postop F/U Visit 15:15:14 MEDICAL OFFICE SUPERVISOR CPT-49117 Postop F/U Visit 14:41:43 CDT CPT-72097 Postop F/U Visit 15:47:46 CDT CPT-OV Office Visit 15:27:23 CDT CPT-OV Office Visit 17:20:34 CDT CPT-02179 Abx/Therapy Injection 15:05:57 CDT CPT-J1100 Decadron 8mg (Dexamethasone) 14:44:57 CDT CPT-J1040 Depo Medrol 80 mg (Methyl Prednisolone Acetate) 14:44: 57 CDT CPT-JTINJ Joint Injection 10:17:37 CDT CPT-48440 Administration 2+ single or combination vaccines inc oral 13:01:46 MEDICAL OFFICE SUPERVISOR CPT-37345 Administration single or combination vaccine inc oral 13 :01:46 MEDICAL OFFICE SUPERVISOR CPT-92548 Pneumovax 13:01:46 MEDICAL OFFICE SUPERVISOR CPT-09180 Influenza split virus > age 3 13:01:46 MEDICAL OFFICE SUPERVISOR CPT-49856 Administration single or combination vaccine inc oral 08 :56:49 CDT CPT-64352 Tdap 08:56:49 CDT
--- OUTSIDE RECORDS SUMMARY | 2017-03-21 23:45 | XMS REPORT | Clinical Summary ---
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5 Inactive Yolande [...] 1 tab by mouth twice daily TRIMETHOPRIM-SULFAMETHOXAZOLE 96192744871 No Longer Active Gab Padron MD Active ADVAIR DISKUS 250-50 MCG/DOSE AEPB 1 puff BID FLUTICASONE- SALMETEROL 07681857286 Active Rodrigo Sarah APRN Active LEVOTHYROXINE SODIUM 75 MCG TABS Take 1 tab daily LEVOTHYROXINE SODIUM 63047890715 No Longer Active Mariana FLEMING Active SYNTHROID 88 MCG ORAL TABS Take one by mouth daily LEVOTHYROXINE SODIUM 20740053518 Active Mariana HICKEYA Active CHERATUSSIN AC 100-10 MG/5ML SYRP 1 tsp by mouth every 4 hours as needed for cough GUAIFENESIN-CODEINE 91612673353 No Longer Active Gab Padron MD Active POLYTRIM 41815-5.1 UNIT/ML-% SOLN 1 gtt to affected eye q3h x 7 days POLYMYXIN B-TRIMETHOPRIM 01994478442 No Longer Active Gab Padron MD Active FLUTICASONE PROPIONATE 50 MCG/ACT SUSP 1 to 2 sprays each nostril daily 04/21 FLUTICASONE PROPIONATE 43357698004 No Longer Active Gab Padron MD Active TRILEPTAL 600 MG TABS Take one 1 tablet in Am and 1 tablet at night OXCARBAZEPINE 24195119703 Active Gab Padron MD Active CEFDINIR 300 MG CAPS 1 po BID x 10 days CEFDINIR 43862795822 No Longer Active Rodrigo Sarah APRN Active CEFTIN 500 MG TAB 1 twice a day CEFUROXIME AXETIL 17705005965 No Longer Active Gab Padron MD Active AZITHROMYCIN 250 MG TABS 2 po qd x 1 day, then 1 po qd x 4 days AZITHROMYCIN 52921873694 No Longer Active Rodrigo Sarah APRN Active CLARITIN 10 MG TAB 1 tablet by mouth daily as needed for allergies LORATADINE 50224925239 Active Rodrigo Sarah APRN Active OXYCODONE HCL 5 MG ORAL CAPS 1 TAB PO Q HS OXYCODONE HCL 50519256089 No Longer Active Rodrigo Sarah APRN Active NIASPAN 500 MG ORAL CR-TABS 1 pill nightly x 1 week, then 2 pills nightly x 1 week, then 3 pills nightly x 1 week, then 4 pills nightly NIACIN (ANTIHYPERLIPIDEMIC) 68861490390 No Longer Active Rodrigo Sarah APRN Active NIACIN 500 MG TABS 1 pill by mouth nightly x 1 week, then 2 pills x 1 week, then 3 pills x 1 week, then 4 pills nightly - take after evening meal, with applesauce or an apple NIACIN 88954582259 No Longer Active Yolande Lindsay MD PhD Active FISH OIL 1000 MG CAPS 3 pills daily OMEGA-3 FATTY ACIDS 26801198868 Active Yolande Lindsay MD PhD Active TRIAMCINOLONE ACETONIDE 0.1 % CREA apply bid sparingly to rash TRIAMCINOLONE ACETONIDE 23162178156 Active Yolande Lindsay MD PhD Active FUROSEMIDE 20 MG TAB 1 tablet by mouth daily FUROSEMIDE 60279588185 Active Tisha Lambert APRN Active LISINOPRIL 20 MG ORAL TABS 1 tab by mouth daily LISINOPRIL 26646463402 Active Gab Padron MD Active FUROSEMIDE 20 MG TABS 1 pill by mouth daily, for edema FUROSEMIDE 79656869484 No Longer Active Yolande Lindsay MD PhD Active ATORVASTATIN CALCIUM 10 MG TABS 1 pill by mouth daily, for cholesterol 09/06 ATORVASTATIN CALCIUM 74163364115 Active Gab Padron MD Active CALCIUM 600+D PLUS MINERALS 600-400 MG-UNIT ORAL CHEW 1 tab by mouth daily CALCIUM CARBONATE-VIT D-MIN 66576708381 No Longer Active Yolande Lindsay MD PhD Active CYCLOBENZAPRINE HCL 10 MG TABS 1 tablet by mouth three times daily as needed for muscle spasm/pain CYCLOBENZAPRINE HCL 83044181977 Active Yolande Lindsay MD PhD Active ONDANSETRON 4 MG TBDP 1 q4h PRN nausea ONDANSETRON 34450016251 Active Yolande Lindsay MD PhD Active ADULT ASPIRIN EC LOW STRENGTH 81 MG TBEC Take 1 tablet by mouth daily 2014 ASPIRIN 12208168664 No Longer Active Yolande Lindsay MD PhD Active ZOFRAN ODT 4 MG TBDP 1 pill dissolved by mouth every 4 hours if needed for nausea ONDANSETRON 55711787082 No Longer Active Yolande Lindsay MD PhD Active CEFTIN 500 MG TAB 1 twice a day CEFUROXIME AXETIL 30642363448 No Longer Active Yolande Lindsay MD PhD Active ALBUTEROL SULFATE 0.083 % NEBU SOLN one vial per nebulizer every 4-6 hours as needed ALBUTEROL SULFATE 13309374306 No Longer Active Alexis Ordaz MD Active DOXYCYCLINE HYCLATE 100 MG CAP 1 cap by mouth twice daily DOXYCYCLINE HYCLATE 47079981965 No Longer Active Yolande Lindsay MD PhD Active CYCLOBENZAPRINE HCL 10 MG TABS 1/2 - 1 tab by mouth three times daily if needed for spasms/pain CYCLOBENZAPRINE HCL 10266261086 No Longer Active Yolande Lindsay MD PhD Active AZITHROMYCIN 250 MG TABS 2 pills on day 1, then 1 pill daily x 4 days AZITHROMYCIN 58960213732 No Longer Active Yolande Lindsay MD PhD Active XOPENEX 1.25 MG/3ML NEBU 1 neb every 4 hours if needed for cough/congestion LEVALBUTEROL HCL 81910555043 No Longer Active Yolande Lindsay MD PhD Active DOXYCYCLINE HYCLATE 100 MG TAB 1 tab twice a day for 14 days 2013 DOXYCYCLINE HYCLATE 28114663615 No Longer Active Yolande Lindsay MD PhD Active PREVACID 30 MG CPDR Take 1 tablet by mouth daily-PRN LANSOPRAZOLE 98643249175 No Longer Active Yolande Lindsay MD PhD Active PA VITAMIN D-3 2000 UNIT CAPS 1 CAP PO DAILY CHOLECALCIFEROL 93493416687 No Longer Active Yolande Lindsay MD PhD Active CEFDINIR 300 MG CAPS by mouth twice a day CEFDINIR 43939036799 No Longer Active Gab Padron MD Active TOPAMAX 50 MG TABS 1 PO twice daily TOPIRAMATE 95365034878 Active Yolande Lindsay MD PhD Active AZITHROMYCIN 250 MG TABS 2 po qd x 1 day, then 1 po qd x 4 days AZITHROMYCIN 06887394142 No Longer Active Yolande Lindsay MD PhD Active DICLOFENAC SODIUM 75 MG TBEC 1 tablet by q 12 hours PRN headaches DICLOFENAC SODIUM 99600710111 No Longer Active Yolande Lindsay MD PhD Active FLONASE 50 MCG/ACT SUSP 1 spray each nostril am and hs FLUTICASONE PROPIONATE 66394594274 No Longer Active Todd Callaway MD Active ANUSOL-HC 25 MG SUPPOSITORY 1 rectally twice a day as needed for hemorrhoids HYDROCORTISONE JAYDEN (RECTAL) 17303671490 No Longer Active Yolande Lindsay MD PhD Active ANUSOL-HC 25 MG SUPPOSITORY 1 suppository rectally each evening as needed for anal fissure HYDROCORTISONE JAYDEN (RECTAL) 66174664677 No Longer Active LONNIE Iglesias Active VALIUM 5 MG TAB 1 po 30 minutes prior to your MRI DIAZEPAM 49537560778 No Longer Active LONNIE Iglesias Active METHOCARBAMOL 750 MG TABS 1 PO QID PRN METHOCARBAMOL 39608690972 No Longer Active Daphne Wetzel APRN Active NITROSTAT 0.4 MG SUBL as directed NITROGLYCERIN 16591222195 No Longer Active Rodrigo Sarah APRN Active ROBAXIN-750 750 MG TABS 2 four times a day for 3 days as needed for muscle spasm, then 1 four times a day as needed METHOCARBAMOL 53221350511 No Longer Active Silvestrellnacho Sarah APRN Active HYDROCODONE-ACETAMINOPHEN 5-325 MG TABS 1 q 4-6 hrs prn HYDROCODONE-ACETAMINOPHEN 86467439083 No Longer Active Rodrigo Sarah APRN Active VERAPAMIL HCL CR 180 MG CR-TABS TAKE 1 TAB DAILY VERAPAMIL HCL 00457527055 No Longer Active Yolande Lindsay MD PhD Active BACTRIM DS 800-160 MG TAB 1 tab by mouth twice daily TRIMETHOPRIM-SULFAMETHOXAZOLE 03279733525 No Longer Active Yolande Lindsay MD PhD Active NEXIUM 40 MG PACK 1 by mouth daily ESOMEPRAZOLE MAGNESIUM 26749571528 No Longer Active Des Hines MD Active EPIPEN 2-CHARLETTE 0.3 MG/0.3ML OMARI as need for allergic reaction EPINEPHRINE 63193716795 Active Yolande Lindsay MD PhD Active NEXIUM 40 MG CPDR 1 PO Q D DAY ESOMEPRAZOLE MAGNESIUM 13179146761 No Longer Active Sadia Perry RN Active NEXIUM 40 MG PACK 1 by mouth daily NEXIUM 40 MG PACK ESOMEPRAZOLE MAGNESIUM Inactive VERAPAMIL HCL CR 180 MG CR-TABS TAKE 1 TAB DAILY VERAPAMIL HCL CR 180 MG CR-TABS VERAPAMIL HCL Inactive HYDROCODONE-ACETAMINOPHEN 5-325 MG TABS 1 q 4-6 hrs prn HYDROCODONE-ACETAMINOPHEN 5-325 MG TABS 906966 HYDROCODONE-ACETAMINOPHEN Inactive ROBAXIN-750 750 MG TABS 2 four times a day for 3 days as needed for muscle spasm, then 1 four times a day as needed ROBAXIN-750 750 MG TABS 132900 METHOCARBAMOL Inactive NITROSTAT 0.4 MG SUBL as directed NITROSTAT 0.4 MG SUBL NITROGLYCERIN Inactive METHOCARBAMOL 750 MG TABS 1 PO QID PRN METHOCARBAMOL 750 MG TABS 182426 METHOCARBAMOL Inactive VALIUM 5 MG TAB 1 po 30 minutes prior to your MRI VALIUM 5 MG TAB 749437 DIAZEPAM Inactive ANUSOL-HC 25 MG SUPPOSITORY 1 suppository rectally each evening as needed for anal fissure ANUSOL-HC 25 MG SUPPOSITORY 0299157 HYDROCORTISONE JAYDEN (RECTAL) Inactive ANUSOL-HC 25 MG SUPPOSITORY 1 rectally twice a day as needed for hemorrhoids ANUSOL-HC 25 MG SUPPOSITORY 6767654 HYDROCORTISONE JAYDEN (RECTAL) Inactive FLONASE 50 MCG/ACT SUSP 1 spray each nostril am and hs FLONASE 50 MCG/ACT SUSP 376878 FLUTICASONE PROPIONATE Inactive DICLOFENAC SODIUM 75 MG TBEC 1 tablet by q 12 hours PRN headaches DICLOFENAC SODIUM 75 MG TBEC 370206 DICLOFENAC SODIUM Inactive PA VITAMIN D-3 2000 UNIT CAPS 1 CAP PO DAILY PA VITAMIN D-3 2000 UNIT CAPS CHOLECALCIFEROL Inactive PREVACID 30 MG CPDR Take 1 tablet by mouth daily-PRN PREVACID 30 MG CPDR 031874 LANSOPRAZOLE Inactive DOXYCYCLINE HYCLATE 100 MG TAB 1 tab twice a day for 14 days 2013 DOXYCYCLINE HYCLATE 100 MG TAB 0959212 DOXYCYCLINE HYCLATE Inactive XOPENEX 1.25 MG/3ML NEBU 1 neb every 4 hours if needed for cough/congestion XOPENEX 1.25 MG/3ML NEBU 265965 LEVALBUTEROL HCL Inactive CYCLOBENZAPRINE HCL 10 MG TABS 1/2 - 1 tab by mouth three times daily if needed for spasms/pain CYCLOBENZAPRINE HCL 10 MG TABS 290484 CYCLOBENZAPRINE HCL Inactive ALBUTEROL SULFATE 0.083 % NEBU SOLN one vial per nebulizer every 4-6 hours as needed ALBUTEROL SULFATE 0.083 % NEBU SOLN 200044 ALBUTEROL SULFATE Inactive CEFTIN 500 MG TAB 1 twice a day CEFTIN 500 MG TAB 198627 CEFUROXIME AXETIL Inactive ZOFRAN ODT 4 MG TBDP 1 pill dissolved by mouth every 4 hours if needed for nausea ZOFRAN ODT 4 MG TBDP 749663 ONDANSETRON Inactive ADULT ASPIRIN EC LOW STRENGTH 81 MG TBEC Take 1 tablet by mouth daily 2014 ADULT ASPIRIN EC LOW STRENGTH 81 MG TBEC 850111 ASPIRIN Inactive CALCIUM 600+D PLUS MINERALS 600-400 [...] or an apple NIACIN 500 MG TABS 973774 NIACIN Inactive NIASPAN 500 MG ORAL CR-TABS 1 pill nightly x 1 week, then 2 pills nightly x 1 week, then 3 pills nightly x 1 week, then 4 pills nightly NIASPAN 500 MG ORAL CR-TABS NIACIN (ANTIHYPERLIPIDEMIC) Inactive OXYCODONE HCL 5 MG ORAL CAPS 1 TAB PO Q HS OXYCODONE HCL 5 MG ORAL CAPS 9467869 OXYCODONE HCL Inactive FLUTICASONE PROPIONATE 50 MCG/ACT SUSP 1 to 2 sprays each nostril daily 04/21 FLUTICASONE PROPIONATE 50 MCG/ACT SUSP 187848 FLUTICASONE PROPIONATE Inactive POLYTRIM 26828-5.1 UNIT/ML-% SOLN 1 gtt to affected eye q3h x 7 days POLYTRIM 79963-2.1 UNIT/ML-% SOLN 399227 POLYMYXIN B- TRIMETHOPRIM Inactive CHERATUSSIN AC 100-10 MG/5ML SYRP 1 tsp by mouth every 4 hours as needed for cough CHERATUSSIN AC 100-10 MG/5ML SYRP 005066 GUAIFENESIN-CODEINE Inactive LEVOTHYROXINE SODIUM 75 MCG TABS Take 1 tab daily LEVOTHYROXINE SODIUM 75 MCG TABS 213175 LEVOTHYROXINE SODIUM Inactive BACTRIM DS 800-160 MG TAB 1 tab by mouth twice daily BACTRIM DS 800-160 MG TAB 19820606 TRIMETHOPRIM-SULFAMETHOXAZOLE Inactive AZITHROMYCIN 250 MG TABS 2 po qd x 1 day, then 1 po qd x 4 days AZITHROMYCIN 250 MG TABS 2724757 AZITHROMYCIN Inactive CEFDINIR 300 MG CAPS by mouth twice a day CEFDINIR 300 MG CAPS 20020708 CEFDINIR Inactive AZITHROMYCIN 250 MG TABS 2 pills on day 1, then 1 pill daily x 4 days AZITHROMYCIN 250 MG TABS 3540972 AZITHROMYCIN Inactive DOXYCYCLINE HYCLATE 100 MG CAP 1 cap by mouth twice daily DOXYCYCLINE HYCLATE 100 MG CAP 8045670 DOXYCYCLINE HYCLATE Inactive FUROSEMIDE 20 MG TABS 1 pill by mouth daily, for edema FUROSEMIDE 20 MG TABS 067976 FUROSEMIDE Inactive AZITHROMYCIN 250 MG TABS 2 po qd x 1 day, then 1 po qd x 4 days AZITHROMYCIN 250 MG TABS 0197591 AZITHROMYCIN Inactive CEFTIN 500 MG TAB 1 twice a day CEFTIN 500 MG TAB 253516 CEFUROXIME AXETIL Inactive CEFDINIR 300 MG CAPS [...] Fluvirin, Fluarix, Agriflu(>=18 yo)) Fluzone (>3 yrs.) [CHO321] Influenza, seasonal, injectable influenza immunization (Flu Vax) has been administered Influenza - Unspecified Formulation [CVX88] influenza virus vaccine, unspecified formulation Seasonal influenza vaccine, injectable, containing preservative, for > 3 years old (Afluria, FluLaval, Fluzone, Fluvirin, Fluarix, Agriflu(>=18 yo)) Fluzone (>3 yrs.) [IJZ697] Influenza, seasonal, injectable pneumococcal immunization administered Pneumovax 23 [CVX33] pneumococcal polysaccharide vaccine, 23 valent dT (Diphtheria and Tetanus) booster given given Td(adult) unspecified formulation Boostrix (Tetanus toxoid, reduced diphtheria toxoid and acellular pertussis vaccine, adsorbed), booster Boostrix [GKP374] tetanus toxoid, reduced diphtheria toxoid, and acellular [...] Panel - Chemistry sodium, serum 142 mmol/L 625-336 3700/06/30 potassium, serum 4.4 mmol/L 3.5-5.2 chloride, serum 108 mmol/L 98-107 carbon dioxide, venous blood 25.1 mmol/L 21.0-32.0 blood glucose 82 mg/dL 65-110 calcium, serum 9.1 mg/dL 8.5-10.1 urea nitrogen, blood 18 mg/dL 7-18 creatinine, serum 1.31 mg/dL 0.55-1.30 Lab Report: [facility] Advanced Lipid and Inlammation Panel /07439 - Chemistry cholesterol, serum 148 mg/dL 898-304 9904/09/02 HDL cholesterol, serum 55 mg/dL > OR=46 [...] (L) - Chemistry sodium, serum 145 mmol/L 628-516 3767/09/02 potassium, serum 4.6 mmol/L 3.5-5.2 chloride, serum [...] Rate - Chemistry sodium, serum 139 mmol/L 786-322 0731/03/24 carbon dioxide, venous blood 22.4 mmol/L 21.0-32.0 [...] ... - Chemistry sodium, serum 143 mmol/L 986-136 7420/05/02 carbon dioxide, venous blood 25.6 mmol/L 21.0-32.0 [...] mg/dL Encounters Code Encounter Date Provider Facility CPT-56137 Level 4 Est. Patient 17:51:05 CDT Gab Padron MD [facility] CPT-71281 Level 3 Est. Patient 14:18:08 CDT Gab Padron MD [facility] CPT-97018 Level 4 Est. Patient 10:18:54 CDT Gab Padron MD [facility] CPT-10650 Level 3 Est. Patient 11:30:07 CDT Rodrigo Sarah APRN [facility] CPT-06218 Level 4 Est. Patient 21:02:30 GAS METER READER Gab Padron MD [facility] CPT-36050 Level 3 Est. Patient 11:02:19 GAS METER READER Gab Padron MD [facility] CPT-84237 Level 4 Est. Patient 22:24:31 GAS METER READER Gab Padron MD [facility] CPT-41179 Level 3 Est. Patient 18:33:46 GAS METER READER Gab Padron MD [facility]-06997 Level 3 Est. Patient 16:19:11 CDT Yolande Lindsay MD [facility]-90185 Level 3 Est. Patient 18:59:14 CDT Yolande Lindsay MD [facility]-41288 Level 4 Est. Patient 21:29:26 CDT Yolande Lindsay MD [facility]-71302 Level 3 Est. Patient 07:37:45 CDT Yolande Lindsay MD [facility]-65740 Level 3 Est. Patient 17:03:46 CDT Yolande Lindsay MD [facility]-85488 Level 4 Est. Patient 20:02:13 GAS METER READER Yolande Lindsay MD [facility]-89005 Level 3 Est. Patient 16:02:07 GAS METER READER Alexis Ordaz MD [facility]-72828 Level 3 Est. Patient 12:41:24 GAS METER READER Yolande Lindsay MD [facility]-51037 Level 3 Est. Patient 15:41:20 GAS METER READER Yolande Lindsay MD [facility]-97505 Level 3 Est. Patient 13:20:02 GAS METER READER Yolande Lindsay MD [facility]-02963 Level 3 Est. Patient 15:00:38 CDT Jared Og MD [facility]-10141 Level 3 Est. Patient 10:22:32 CDT Yolande Lindsay MD [facility]-36789 Level 3 Est. Patient 17:12:58 CDT Yolande Lindsay MD [facility]-63656 Level 4 Est. Patient 13:30:58 CDT Yolande Lindsay MD [facility]-51934 Level 4 New Patient 09:02:42 CDT Jared Og MD [facility]-26623 Level 3 Est. Patient 08:19:07 CDT Yolande Lindsay MD [facility]08741 Level 3 Est. Patient 12:00:13 GAS METER READER Gab Padron MD [facility]-19405 Level 3 Est. Patient 16:15:23 GAS METER READER Yolande Lindsay MD [facility]84407 Level 2 Est. Patient 19:47:15 CDT Yolande Lindsay MD [facility]18702 Level 3 Est. Patient 21:38:31 CDT Yolande Lindsay MD [facility]41247 Level 3 Est. Patient 10:25:12 CDT Adiel PERAZA [facility]-88552 Level 4 Est. Patient 10:51:58 CDT Yolande Lindsay MD [facility]-12393 Level 3 Est. Patient 14:04:55 GAS METER READER Rodrigo Sarah [facility]95704 Level 3 Est. Patient 10:46:35 GAS METER READER Rodrigo Sarah [facility]-49472 Level 3 Est. Patient 14:24:37 GAS METER READER Yolande Lindsay MD [facility]69140 Level 3 Est. Patient 17:41:58 GAS METER READER Yolande Lindsay MD [facility]02172 Level 2 Est. Patient 22:01:41 GAS METER READER Rodrigo Sarah [facility]02059 Level 2 Est. Patient 22:01:11 GAS METER READER Rodrigo Sarah [facility]-40729 Level 3 Est. Patient 10:12:29 GAS METER READER Rodrigo Sarah APRN [facility] CPT-22280 Level 3 Est. Patient 11:05:44 CDT Alexis Ordaz MD [facility] CPT-19546 Level 3 Est. Patient 14:57:20 CDT Yolande Lindsay MD [facility] CPT-11896 Level 3 Est. Patient 14:40:57 CDT Yolande Lindsay MD [facility] CPT-51147 Level 3 Est. Patient 20:55:40 CDT Yolande Lindsay MD [facility] CPT-25407 Level 3 Est. Patient 12:42:38 GAS METER READER Yolande Lindsay MD [facility]-08048 Level 3 Est. Patient 11:54:49 GAS METER READER Des Hines MD [facility] CPT-64313 Level 3 Est. Patient 17:06:38 CDT Dewayne PERAZA [facility] Procedures Code Procedure Name Date Entry Date Standard Description CPT-95241 LS spine comp w obliq 13:28:00 GAS METER READER CPT-J1040 Depo Medrol 80 mg (Methyl Prednisolone Acetate) 10:51: 28 GAS METER READER CPT-J1100 Decadron 8mg (Dexamethasone) 10:51:28 GAS METER READER CPT-50790 Abx/Therapy Injection 10:51:28 GAS METER READER CPT-J1100 Decadron 8mg (Dexamethasone) 21:02:30 GAS METER READER CPT-J1040 Depo Medrol 80 mg (Methyl Prednisolone Acetate) 21:02: 30 GAS METER READER [id number] Event Monitor - MC Transmission 09:12:32 CDT 08/06 [id number] Event Monitor - MC review and interp 09:12:32 CDT [id number] Event Monitor - MC recording 09:12:32 CDT CPT-45286 EKG Trac and Interp 16:50:22 CDT CPT-J1030 Depo Medrol 40 mg (Methyl Prednisolone Acetate) 17:05: 54 CDT CPT-J1100 Decadron 4mg (Dexamethasone) 17:05:54 CDT CPT-76067 Abx/Therapy Injection 17:05:54 CDT CPT-J1100 Decadron 4mg (Dexamethasone) 16:55:28 CDT CPT-J1030 Depo Medrol 40 mg (Methyl Prednisolone Acetate) 16:55: 28 CDT CPT-99763 Ankle Complete - Min 3V 15:58:50 CDT CPT-95354 Knee 3V 15:58:50 CDT CPT-60065 Hip comp min 2V 15:58:50 CDT CPT-J2270 Morphine Sulfate 10 mg 14:25:44 GAS METER READER CPT-J2550 Phenergan 12.5 mg (Promethazine) 14:25:44 GAS METER READER CPT-03135 Abx/Therapy Injection 14:25:44 GAS METER READER CPT-J2550 Phenergan 12.5 mg (Promethazine) 14:08:03 GAS METER READER CPT-J2270 Morphine Sulfate 10 mg 14:08:03 GAS METER READER CPT-04810 Bladder Scan 15:00:38 CDT CPT-TCMM Transitional Care Mgmt-Moderate 09:52:22 CDT CPT-J1030 Depo Medrol 40 mg (Methyl Prednisolone Acetate) 10:55: 18 CDT CPT-J1100 Decadron 4mg (Dexamethasone) 10:55:18 CDT CPT-74152 Abx/Therapy Injection 10:55:18 CDT CPT-J1030 Depo Medrol 40 mg (Methyl Prednisolone Acetate) 10:22: 32 CDT CPT-J1100 Decadron 4mg (Dexamethasone) 10:22:32 CDT CPT-70054 Postop F/U Visit 14:37:13 CDT CPT-40228 Ankle Complete - Min 3V 17:11:58 CDT CPT-95362 Foot comp min 3V 17:11:58 CDT CPT-59577 Bladder Scan 09:56:58 CDT CPT-10906 Postop F/U Visit 09:56:58 CDT CPT-28263 Cystoscopy 09:02:42 CDT CPT-89987 Bladder Scan 09:02:42 CDT CPT-28071 Abd single AP View 16:00:35 CDT CPT-02870 Administration single or combination vaccine inc oral 10 :15:43 CDT CPT-22660 Influenza split virus > age 3 10:15:43 CDT CPT-09067 Nail Avulsion 09:24:57 CDT CPT-OV Office Visit 11:15:41 CDT CPT-86873 Abx/Therapy Injection 10:51:30 CDT CPT-J3301 Kenalog 40 mg (Triamcinolone Acetonide) 10:25:12 CDT CPT-J1100 Decadron 4mg (Dexamethasone) 10:25:12 CDT CPT-84468 Anoscopy diagnostic 10:36:12 CDT CPT-OV Office Visit 15:34:31 CDT CPT-26415 Abx/Therapy Injection 08:21:15 GAS METER READER CPT-J1885 Toradol 60 mg (Ketorolac) 10:46:35 GAS METER READER CPT-OV Office Visit 19:51:16 GAS METER READER CPT-48571 Spec Collection and Handling Fee 14:34:18 GAS METER READER CPT-PV Prev. Care Visit 14:19:18 GAS METER READER CPT-82977 Postop F/U Visit 14:47:51 GAS METER READER CPT-13254 Postop F/U Visit 15:15:14 GAS METER READER CPT-44130 Postop F/U Visit 14:41:43 CDT CPT-50093 Postop F/U Visit 15:47:46 CDT CPT-OV Office Visit 15:27:23 CDT CPT-OV Office Visit 17:20:34 CDT CPT-30071 Abx/Therapy Injection 15:05:57 CDT CPT-J1100 Decadron 8mg (Dexamethasone) 14:44:57 CDT CPT-J1040 Depo Medrol 80 mg (Methyl Prednisolone Acetate) 14:44: 57 CDT CPT-JTINJ Joint Injection 10:17:37 CDT CPT-94715 Administration 2+ single or combination vaccines inc oral 13:01:46 GAS METER READER CPT-75974 Administration single or combination vaccine inc oral 13 :01:46 GAS METER READER CPT-39639 Pneumovax 13:01:46 GAS METER READER CPT-35978 Influenza split virus > age 3 13:01:46 GAS METER READER CPT-90210 Administration single or combination vaccine inc oral 08 :56:49 CDT CPT-89229 Tdap 08:56:49 CDT
--- OUTSIDE RECORDS SUMMARY | 2017-03-21 23:48 | XMS REPORT | Clinical Summary ---
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 CLERK CHLORHEXIDINE GLUCONATE tongue and gums swollen Critical Active Hoa Kabaford RMA NORFLEX Rash Critical Active Rowenaina Frazell CASH MANAGEMENT CLERK TRAZODONE HCL sees things Critical Active [...] thigh Sinusitis, maxillary, acute 461.0 Resolved Yolande Linsday MD PhD Acute maxillary sinusitis Sinusitis 461.9 [...] of 412 Active Hoa Otto [facility] Old myocardial infarction Pelvic pain 789.09 Resolved [...] Lindsay MD PhD EDEMA, LIMB ICD-782.3 Inactive Yloande Lindsay MD PhD ABDOMINAL PAIN ICD-789.00 Inactive [...] 1 po qd PRN Allergies CETIRIZINE HCL 86490163391 Active Gab Padron MD Active CLARITIN 10 MG TAB 1 tablet by mouth daily as needed for allergies LORATADINE 11311830913 No Longer Active Gab Padron MD Active PREDNISONE 20 MG TAB take 3 tabs daily for 3 days, 2 tabs daily for 3 days, 1 tab daily for 3 days, 1/2 tab daily for 3 days PREDNISONE 67174976884 No Longer Active Tisha Lambert APRN Active TRAMADOL HCL 50 MG TABS 1 tab po every 6 hrs prn pain TRAMADOL HCL 82063522349 Active Gab Padron MD Active PREDNISONE 20 MG TAB 2 tabs daily for 3 days, 1 tab daily for 3 days, 1/2 tab daily for 2 days PREDNISONE 27254159938 No Longer Active Gab Padron MD Active ZOFRAN ODT 4 MG TBDP 1 po q6hr PRN Nausea ONDANSETRON 12826753421 Active Gab Padron MD Active IBUPROFEN 600 MG TAB 1 tablet by mouth every 6 hours for 7 days, then 1 tablet every 6 hours as needed. Take with food IBUPROFEN 95555820731 Active Rodrigo Sarah APRN Active BACTRIM DS 800-160 MG TAB 1 tab by mouth twice daily TRIMETHOPRIM-SULFAMETHOXAZOLE 41662946009 No Longer Active Gab Padron MD Active ADVAIR DISKUS 250-50 MCG/DOSE AEPB 1 puff BID FLUTICASONE- SALMETEROL 74708226491 Active Rodrigo Sarah APRN Active LEVOTHYROXINE SODIUM 75 MCG TABS Take 1 tab daily LEVOTHYROXINE SODIUM 06234763952 No Longer Active Mariana FLEMING Active SYNTHROID 88 MCG ORAL TABS Take one by mouth daily LEVOTHYROXINE SODIUM 78916044573 Active Gab Padron MD Active CHERATUSSIN AC 100-10 MG/5ML SYRP 1 tsp by mouth every 4 hours as needed for cough GUAIFENESIN-CODEINE 35513511147 No Longer Active Gab Padron MD Active POLYTRIM 03362-7.1 UNIT/ML-% SOLN 1 gtt to affected eye q3h x 7 days POLYMYXIN B-TRIMETHOPRIM 70953062172 No Longer Active Gab Padron MD Active FLUTICASONE PROPIONATE 50 MCG/ACT SUSP 1 to 2 sprays each nostril daily 04/21 FLUTICASONE PROPIONATE 91745504543 No Longer Active Gab Padron MD Active TRILEPTAL 600 MG TABS Take one 1 tablet in Am and 1 tablet at night OXCARBAZEPINE 83110433721 Active Gab Padron MD Active CEFDINIR 300 MG CAPS 1 po BID x 10 days CEFDINIR 36588548439 No Longer Active Rodrigo Sarah APRN Active CEFTIN 500 MG TAB 1 twice a day CEFUROXIME AXETIL 52099480640 No Longer Active Gab Padron MD Active AZITHROMYCIN 250 MG TABS 2 po qd x 1 day, then 1 po qd x 4 days AZITHROMYCIN 54695420891 No Longer Active Rodrigo Sarah APRN Active OXYCODONE HCL 5 MG ORAL CAPS 1 TAB PO Q HS OXYCODONE HCL 68824075752 No Longer Active Silvestrellnacho Sarah APRN Active NIASPAN 500 MG ORAL CR-TABS 1 pill nightly x 1 week, then 2 pills nightly x 1 week, then 3 pills nightly x 1 week, then 4 pills nightly NIACIN (ANTIHYPERLIPIDEMIC) 42819474691 No Longer Active Silvestrellnacho Sarah APRN Active NIACIN 500 MG TABS 1 pill by mouth nightly x 1 week, then 2 pills x 1 week, then 3 pills x 1 week, then 4 pills nightly - take after evening meal, with applesauce or an apple NIACIN 93611611085 No Longer Active Yolande Lindsay MD PhD Active FISH OIL 1000 MG CAPS 3 pills daily OMEGA-3 FATTY ACIDS 12782308499 Active Yolande Lindsay MD PhD Active TRIAMCINOLONE ACETONIDE 0.1 % CREA apply bid sparingly to rash TRIAMCINOLONE ACETONIDE 16377164497 Active Yolande Lindsay MD PhD Active FUROSEMIDE 20 MG TAB 1 tablet by mouth daily FUROSEMIDE 54734887383 Active Gab Padron MD Active LISINOPRIL 20 MG ORAL TABS 1 tab by mouth daily LISINOPRIL 29037824561 Active Gab Padron MD Active FUROSEMIDE 20 MG TABS 1 pill by mouth daily, for edema FUROSEMIDE 79772293322 No Longer Active Yolande Lindsay MD PhD Active ATORVASTATIN CALCIUM 10 MG TABS 1 pill by mouth daily, for cholesterol 09/06 ATORVASTATIN CALCIUM 81056871938 Active Gab Padron MD Active CALCIUM 600+D PLUS MINERALS 600-400 MG-UNIT ORAL CHEW 1 tab by mouth daily CALCIUM CARBONATE-VIT D-MIN 98484483303 No Longer Active Yolande Lindsay MD PhD Active CYCLOBENZAPRINE HCL 10 MG TABS 1 tablet by mouth three times daily as needed for muscle spasm/pain CYCLOBENZAPRINE HCL 50021290059 Active Yolande Lindsay MD PhD Active ONDANSETRON 4 MG TBDP 1 q4h PRN nausea ONDANSETRON 94351113810 Active Yolande Lindsay MD PhD Active ADULT ASPIRIN EC LOW STRENGTH 81 MG TBEC Take 1 tablet by mouth daily 2014 ASPIRIN 99749825705 No Longer Active Yolande Lindsay MD PhD Active ZOFRAN ODT 4 MG TBDP 1 pill dissolved by mouth every 4 hours if needed for nausea ONDANSETRON 87336922667 No Longer Active Yolande Lindsay MD PhD Active CEFTIN 500 MG TAB 1 twice a day CEFUROXIME AXETIL 48815833253 No Longer Active Yolande Lindsay MD PhD Active ALBUTEROL SULFATE 0.083 % NEBU SOLN one vial per nebulizer every 4-6 hours as needed ALBUTEROL SULFATE 68591624852 No Longer Active Alexis Ordaz MD Active DOXYCYCLINE HYCLATE 100 MG CAP 1 cap by mouth twice daily DOXYCYCLINE HYCLATE 04533420411 No Longer Active Yolande Lindsay MD PhD Active CYCLOBENZAPRINE HCL 10 MG TABS 1/2 - 1 tab by mouth three times daily if needed for spasms/pain CYCLOBENZAPRINE HCL 56383801321 No Longer Active Yolande Lindsay MD PhD Active AZITHROMYCIN 250 MG TABS 2 pills on day 1, then 1 pill daily x 4 days AZITHROMYCIN 75718752459 No Longer Active Yolande Lindsay MD PhD Active XOPENEX 1.25 MG/3ML NEBU 1 neb every 4 hours if needed for cough/congestion LEVALBUTEROL HCL 78299182842 No Longer Active Yolande Lindsay MD PhD Active DOXYCYCLINE HYCLATE 100 MG TAB 1 tab twice a day for 14 days 2013 DOXYCYCLINE HYCLATE 72973110834 No Longer Active Yolande Lindsay MD PhD Active PREVACID 30 MG CPDR Take 1 tablet by mouth daily-PRN LANSOPRAZOLE 72721770476 No Longer Active Yolande Lindsay MD PhD Active PA VITAMIN D-3 2000 UNIT CAPS 1 CAP PO DAILY CHOLECALCIFEROL 47184308958 No Longer Active Yolande Lindsay MD PhD Active CEFDINIR 300 MG CAPS by mouth twice a day CEFDINIR 04024891445 No Longer Active Gab Padron MD Active TOPAMAX 50 MG TABS 1 PO twice daily TOPIRAMATE 02785311460 Active Yolande Lindsay MD PhD Active AZITHROMYCIN 250 MG TABS 2 po qd x 1 day, then 1 po qd x 4 days AZITHROMYCIN 95404199554 No Longer Active Yolande Lindsay MD PhD Active DICLOFENAC SODIUM 75 MG TBEC 1 tablet by q 12 hours PRN headaches DICLOFENAC SODIUM 65093106063 No Longer Active Yolande Lindsay MD PhD Active FLONASE 50 MCG/ACT SUSP 1 spray each nostril am and hs FLUTICASONE PROPIONATE 55713451740 No Longer Active Todd Callaway MD Active ANUSOL-HC 25 MG SUPPOSITORY 1 rectally twice a day as needed for hemorrhoids HYDROCORTISONE JAYDEN (RECTAL) 81215638282 No Longer Active Yolande Lindsay MD PhD Active ANUSOL-HC 25 MG SUPPOSITORY 1 suppository rectally each evening as needed for anal fissure HYDROCORTISONE JAYDEN (RECTAL) 03269438215 No Longer Active LONNIE Iglesias Active VALIUM 5 MG TAB 1 po 30 minutes prior to your MRI DIAZEPAM 09872508626 No Longer Active LONNIE Iglesias Active METHOCARBAMOL 750 MG TABS 1 PO QID PRN METHOCARBAMOL 29745774574 No Longer Active Daphne Wetzel APRN Active NITROSTAT 0.4 MG SUBL as directed NITROGLYCERIN 86779431695 No Longer Active Rodrigo Sarah APRN Active ROBAXIN-750 750 MG TABS 2 four times a day for 3 days as needed for muscle spasm, then 1 four times a day as needed METHOCARBAMOL 77243422582 No Longer Active Rodrigo Sarah APRN Active HYDROCODONE-ACETAMINOPHEN 5-325 MG TABS 1 q 4-6 hrs prn HYDROCODONE-ACETAMINOPHEN 92589743394 No Longer Active Rodrigo Sarah APRN Active VERAPAMIL HCL CR 180 MG CR-TABS TAKE 1 TAB DAILY VERAPAMIL HCL 92203547593 No Longer Active Yolande Lindsay MD PhD Active BACTRIM DS 800-160 MG TAB 1 tab by mouth twice daily TRIMETHOPRIM-SULFAMETHOXAZOLE 64754889064 No Longer Active Yolande Lindsay MD PhD Active NEXIUM 40 MG PACK 1 by mouth daily ESOMEPRAZOLE MAGNESIUM 03511873555 No Longer Active Des Hines MD Active EPIPEN 2-CHARLETTE 0.3 MG/0.3ML OMARI as need for allergic reaction EPINEPHRINE 35169100141 Active Yolande Lindsay MD PhD Active NEXIUM 40 MG CPDR 1 PO Q D DAY ESOMEPRAZOLE MAGNESIUM 09503342056 No Longer Active Sadia Orlando RIVERA Active NEXIUM 40 MG PACK 1 by mouth daily NEXIUM 40 MG PACK ESOMEPRAZOLE MAGNESIUM Inactive VERAPAMIL HCL CR 180 MG CR-TABS TAKE 1 TAB DAILY VERAPAMIL HCL CR 180 MG CR-TABS VERAPAMIL HCL Inactive HYDROCODONE-ACETAMINOPHEN 5-325 MG TABS 1 q 4-6 hrs prn HYDROCODONE-ACETAMINOPHEN 5-325 MG TABS 127438 HYDROCODONE-ACETAMINOPHEN Inactive ROBAXIN-750 750 MG TABS 2 four times a day for 3 days as needed for muscle spasm, then 1 four times a day as needed ROBAXIN-750 750 MG TABS 153942 METHOCARBAMOL Inactive NITROSTAT 0.4 MG SUBL as directed NITROSTAT 0.4 MG SUBL 724590 NITROGLYCERIN Inactive METHOCARBAMOL 750 MG TABS 1 PO QID PRN METHOCARBAMOL 750 MG TABS 198614 METHOCARBAMOL Inactive VALIUM 5 MG TAB 1 po 30 minutes prior to your MRI VALIUM 5 MG TAB 476115 DIAZEPAM Inactive ANUSOL-HC 25 MG SUPPOSITORY 1 suppository rectally each evening as needed for anal fissure ANUSOL-HC 25 MG SUPPOSITORY 9418580 HYDROCORTISONE JAYDEN (RECTAL) Inactive ANUSOL-HC 25 MG SUPPOSITORY 1 rectally twice a day as needed for hemorrhoids ANUSOL-HC 25 MG SUPPOSITORY 0998908 HYDROCORTISONE JAYDEN (RECTAL) Inactive FLONASE 50 MCG/ACT SUSP 1 spray each nostril am and hs FLONASE 50 MCG/ACT SUSP 3896045 FLUTICASONE PROPIONATE Inactive DICLOFENAC SODIUM 75 MG TBEC 1 tablet by q 12 hours PRN headaches DICLOFENAC SODIUM 75 MG TBEC 400026 DICLOFENAC SODIUM Inactive PA VITAMIN D-3 2000 UNIT CAPS 1 CAP PO DAILY PA VITAMIN D-3 2000 UNIT CAPS CHOLECALCIFEROL Inactive PREVACID 30 MG CPDR Take 1 tablet by mouth daily-PRN PREVACID 30 MG CPDR 765861 LANSOPRAZOLE Inactive DOXYCYCLINE HYCLATE 100 MG TAB 1 tab twice a day for 14 days 2013 DOXYCYCLINE HYCLATE 100 MG TAB 7745412 DOXYCYCLINE HYCLATE Inactive XOPENEX 1.25 MG/3ML NEBU 1 neb every 4 hours if needed for cough/congestion XOPENEX 1.25 MG/3ML NEBU 667365 LEVALBUTEROL HCL Inactive CYCLOBENZAPRINE HCL 10 MG TABS 1/2 - 1 tab by mouth three times daily if needed for spasms/pain CYCLOBENZAPRINE HCL 10 MG TABS 595931 CYCLOBENZAPRINE HCL Inactive ALBUTEROL SULFATE 0.083 % NEBU SOLN one vial per nebulizer every 4-6 hours as needed ALBUTEROL SULFATE 0.083 % NEBU SOLN 393527 ALBUTEROL SULFATE Inactive CEFTIN 500 MG TAB 1 twice a day CEFTIN 500 MG TAB 429995 CEFUROXIME AXETIL Inactive ZOFRAN ODT 4 MG TBDP 1 pill dissolved by mouth every 4 hours if needed for nausea ZOFRAN ODT 4 MG TBDP 545183 ONDANSETRON Inactive ADULT ASPIRIN EC LOW STRENGTH 81 MG TBEC Take 1 tablet by mouth daily 2014 ADULT ASPIRIN EC LOW STRENGTH 81 MG TBEC 317857 ASPIRIN Inactive CALCIUM 600+D PLUS MINERALS 600-400 [...] or an apple NIACIN 500 MG TABS 844669 NIACIN Inactive NIASPAN 500 MG ORAL CR-TABS 1 pill nightly x 1 week, then 2 pills nightly x 1 week, then 3 pills nightly x 1 week, then 4 pills nightly NIASPAN 500 MG ORAL CR-TABS NIACIN (ANTIHYPERLIPIDEMIC) Inactive OXYCODONE HCL 5 MG ORAL CAPS 1 TAB PO Q HS OXYCODONE HCL 5 MG ORAL CAPS 1362123 OXYCODONE HCL Inactive FLUTICASONE PROPIONATE 50 MCG/ACT SUSP 1 to 2 sprays each nostril daily 04/21 FLUTICASONE PROPIONATE 50 MCG/ACT SUSP 6479565 FLUTICASONE PROPIONATE Inactive POLYTRIM 12473-3.1 UNIT/ML-% SOLN 1 gtt to affected eye q3h x 7 days POLYTRIM 71100-2.1 UNIT/ML-% SOLN 689208 POLYMYXIN B- TRIMETHOPRIM Inactive CHERATUSSIN AC 100-10 MG/5ML SYRP 1 tsp by mouth every 4 hours as needed for cough CHERATUSSIN AC 100-10 MG/5ML SYRP 617922 GUAIFENESIN-CODEINE Inactive LEVOTHYROXINE SODIUM 75 MCG TABS Take 1 tab daily LEVOTHYROXINE SODIUM 75 MCG TABS 215087 LEVOTHYROXINE SODIUM Inactive CLARITIN 10 MG TAB 1 tablet by mouth daily as needed for allergies CLARITIN 10 MG TAB 886219 LORATADINE Inactive BACTRIM DS 800-160 MG TAB 1 tab by mouth twice daily BACTRIM DS 800-160 MG TAB 812157 TRIMETHOPRIM-SULFAMETHOXAZOLE Inactive AZITHROMYCIN 250 MG TABS 2 po qd x 1 day, then 1 po qd x 4 days AZITHROMYCIN 250 MG TABS 2468499 AZITHROMYCIN Inactive CEFDINIR 300 MG CAPS by mouth twice a day CEFDINIR 300 MG CAPS 089456 CEFDINIR Inactive AZITHROMYCIN 250 MG TABS 2 pills on day 1, then 1 pill daily x 4 days AZITHROMYCIN 250 MG TABS 6084081 AZITHROMYCIN Inactive DOXYCYCLINE HYCLATE 100 MG CAP 1 cap by mouth twice daily DOXYCYCLINE HYCLATE 100 MG CAP 2226873 DOXYCYCLINE HYCLATE Inactive FUROSEMIDE 20 MG TABS 1 pill by mouth daily, for edema FUROSEMIDE 20 MG TABS 327913 FUROSEMIDE Inactive AZITHROMYCIN 250 MG TABS 2 po qd x 1 day, then 1 po qd x 4 days AZITHROMYCIN 250 MG TABS 9397850 AZITHROMYCIN Inactive CEFTIN 500 MG TAB 1 twice a day CEFTIN 500 MG TAB 311978 CEFUROXIME AXETIL Inactive CEFDINIR 300 MG CAPS 1 po BID x 10 days CEFDINIR 300 MG CAPS 617451 CEFDINIR Inactive BACTRIM DS 800-160 MG TAB 1 tab by mouth twice daily BACTRIM DS 800-160 MG TAB 982825 TRIMETHOPRIM-SULFAMETHOXAZOLE Inactive PREDNISONE 20 MG TAB 2 tabs daily for 3 days, 1 tab daily for 3 days, 1/2 tab daily for 2 days PREDNISONE 20 MG TAB 259182 PREDNISONE Inactive PREDNISONE 20 MG TAB take 3 tabs daily for 3 days, 2 tabs daily for 3 days, 1 tab daily for 3 days, 1/2 tab daily for 3 days PREDNISONE 20 MG TAB 284162 PREDNISONE Inactive Immunizations Vaccine Administration Date Value Standard Description Seasonal influenza vaccine, injectable, containing preservative, for > 3 years old (Afluria, FluLaval, Fluzone, Fluvirin, Fluarix, Agriflu(>=18 yo)) Fluzone (>3 yrs.) [VCJ461] Influenza, seasonal, injectable influenza immunization (Flu Vax) has been administered Influenza - Unspecified Formulation [CVX88] influenza virus vaccine, unspecified formulation pneumococcal immunization administered Pneumovax 23 [CVX33] pneumococcal polysaccharide vaccine, 23 valent Seasonal influenza vaccine, injectable, containing preservative, for > 3 years old (Afluria, FluLaval, Fluzone, Fluvirin, Fluarix, Agriflu(>=18 yo)) Fluzone (>3 yrs.) [ROB522] Influenza, seasonal, injectable dT (Diphtheria and Tetanus) booster given given Td(adult) unspecified formulation Boostrix (Tetanus toxoid, reduced diphtheria toxoid and acellular pertussis vaccine, adsorbed), booster Boostrix [BIF563] tetanus toxoid, reduced diphtheria toxoid, and acellular [...] pressure, diastolic - 8462-4 70 mm[Hg] BP weldno blood pressure, systolic - 8480-6 122 mm[Hg] [...] Panel - Chemistry sodium, serum 142 mmol/L 363-302 2465/06/30 potassium, serum 4.4 mmol/L 3.5-5.2 chloride, serum 108 mmol/L 98-107 carbon dioxide, venous blood 25.1 mmol/L 21.0-32.0 blood glucose 82 mg/dL 65-110 calcium, serum 9.1 mg/dL 8.5-10.1 urea nitrogen, blood 18 mg/dL 7-18 creatinine, serum 1.31 mg/dL 0.55-1.30 Lab Report: Lipid Panel, HEPATIC PANEL - Chemistry cholesterol, serum 166 mg/dL 320-057 1776/12/06 triglyceride, serum, fasting 86 mg/dL 30-200 HDL [...] dipstick Negative Negative sodium, serum 142 mmol/L 704-992 4651/07/18 carbon dioxide, venous blood 27.8 mmol/L 21.0-32.0 [...] negative Encounters Code Encounter Date Provider Facility CPT-24754 Level 4 Est. Patient 13:18:33 CDT Gab Padron MD [facility] CPT-56161 Level 3 Est. Patient 15:20:50 CDT Jared Og MD [facility] CPT-42420 Level 3 Est. Patient 17:43:55 [employer] Gab Padron MD [facility] CPT-49515 Level 3 Est. Patient 17:07:49 [employer] Jared Og MD [facility] CPT-97652 Level 4 Est. Patient 19:55:18 [employer] Jared Og MD [facility] CPT-16460 Level 3 Est. Patient 20:13:34 [employer] Jared Og MD [facility] CPT-34648 Level 4 Est. Patient 16:31:27 CDT Gab Padron MD [facility] CPT-04740 Level 2 Est. Patient 12:23:38 CDT Jared Og MD [facility] CPT-00323 Level 3 Est. Patient 11:01:51 CDT Gab Padron MD [facility] CPT-33488 Level 3 Est. Patient 15:27:02 CDT Jared Og MD [facility] CPT-72431 Level 4 Est. Patient 09:25:27 CDT Gab Padron MD [facility] CPT-71075 Level 3 Est. Patient 10:29:41 CDT Rodrigo Sarah Formerly named [facility]-03829 Level 4 Est. Patient 17:51:05 CDT aGb Padron MD [facility]-45472 Level 3 Est. Patient 14:18:08 CDT Gab Padron MD [facility]-57286 Level 4 Est. Patient 10:18:54 CDT Gab Padron MD [facility]-04979 Level 3 Est. Patient 11:30:07 CDT Rodrigo Sarah [facility] CPT-21055 Level 4 Est. Patient 21:02:30 [employer] Gab Padron MD [facility]-04750 Level 3 Est. Patient 11:02:19 [employer] Gab Padron MD [facility] CPT-70931 Level 4 Est. Patient 22:24:31 [employer] Gab Padron MD [facility] CPT-44411 Level 3 Est. Patient 18:33:46 [employer] Gab Padron MD [facility] CPT-97394 Level 3 Est. Patient 16:19:11 CDT Yolande Lindsay MD [facility]-82255 Level 3 Est. Patient 18:59:14 CDT Yolande Lindsay MD [facility] CPT-28896 Level 4 Est. Patient 21:29:26 CDT Yolande Lindsay MD [facility]23370 Level 3 Est. Patient 07:37:45 CDT Yolande Lindsay MD [facility]-53199 Level 3 Est. Patient 17:03:46 CDT Yolande Lindsay MD [facility] CPT-55362 Level 4 Est. Patient 20:02:13 [employer] Yolande Lindsay MD [facility] CPT-87798 Level 3 Est. Patient 16:02:07 [employer] Alexis Ordaz MD [facility] CPT-34305 Level 3 Est. Patient 12:41:24 [employer] Yolande Lindsay MD [facility]-66844 Level 3 Est. Patient 15:41:20 [employer] Yolande Lindsay MD [facility]-40193 Level 3 Est. Patient 13:20:02 [employer] Yolande Lindsay MD [facility]-53692 Level 3 Est. Patient 15:00:38 CDT Jared Og MD [facility] CPT-75338 Level 3 Est. Patient 10:22:32 CDT Yolande Lindsay MD [facility] CPT-99550 Level 3 Est. Patient 17:12:58 CDT Yolande Lindsay MD [facility] CPT-36345 Level 4 Est. Patient 13:30:58 CDT Yolande Lindsay MD [facility] CPT-80145 Level 4 New Patient 09:02:42 CDT Jared Og MD [facility]-08191 Level 3 Est. Patient 08:19:07 CDT Yolande Lindsay MD [facility] CPT-68541 Level 3 Est. Patient 12:00:13 [employer] Gab Padron MD [facility]-12126 Level 3 Est. Patient 16:15:23 [employer] Yolande Lindsay MD [facility] CPT-76749 Level 2 Est. Patient 19:47:15 CDT Yolande Lindsay MD PhD [facility] CPT-13661 Level 3 Est. Patient 21:38:31 CDT Yolande Lindsay MD [facility] CPT-62139 Level 3 Est. Patient 10:25:12 CDT Adiel PERAZA [facility]-72397 Level 4 Est. Patient 10:51:58 CDT Yolande Lindsay MD [facility]-20728 Level 3 Est. Patient 14:04:55 [employer] Rodrigo Sarah [facility] CPT-46154 Level 3 Est. Patient 10:46:35 [employer] Rodrigo Sarah [facility] CPT-36002 Level 3 Est. Patient 14:24:37 [employer] Yolande Lindsay MD [facility]-99544 Level 3 Est. Patient 17:41:58 [employer] Yolande Lindsay MD [facility]-72004 Level 2 Est. Patient 22:01:41 [employer] Rdorigo Sarah [facility] CPT-84210 Level 2 Est. Patient 22:01:11 [employer] Rodrigo Sarah [facility] CPT-83429 Level 3 Est. Patient 10:12:29 [employer] Rodrigo Sarah [facility] CPT-42918 Level 3 Est. Patient 11:05:44 CDT Alexis Ordaz MD [facility]-31990 Level 3 Est. Patient 14:57:20 CDT Yolande Lindsay MD [facility]-82834 Level 3 Est. Patient 14:40:57 CDT Yolande Lindsay MD [facility]-14468 Level 3 Est. Patient 20:55:40 CDT Yolande Lindsay MD [facility]-36548 Level 3 Est. Patient 12:42:38 [employer] Yolande Lindsay MD PhD [facility] CPT-18484 Level 3 Est. Patient 11:54:49 [employer] Des Hines MD [facility] CPT-68807 Level 3 Est. Patient 17:06:38 CDT Dewayne PERAZA [facility] Procedures Code Procedure Name Date Entry Date Standard Description CPT-J2930 Solu Medrol 125 mg (Methyl Prednisolone Sodium Succinate) 13:19:02 CDT CPT-43081 Abx/Therapy Injection 13:19:02 CDT CPT-J2930 Solu Medrol 125 mg (Methyl Prednisolone Sodium Succinate) 13:05:03 CDT CPT-86236 Hip, complete, 2-3 views - XRAY USE ONLY 17:19:04 [employer] CPT-92381 Venipuncture Draw Fee 08:37:59 [employer] CPT-97316 Liver Profile - LAB USE ONLY 08:37:59 [employer] CPT-00470 Lipid - LAB USE ONLY 08:37:58 [employer] CPT-96800 First Vx - Ix admin via ID IM or jet injects without counseling by physician 11:52:31 CDT CPT-04737 Fluzone Preservative Free Intramuscular Suspension 11:52 :31 CDT CPT-98252 Foot, left, comp min 3V - XRAY USE ONLY 09:24:54 CDT CPT-26324 Abd single AP View - XRAY USE ONLY 11:16:17 CDT CPT-33302 T spine AP/ Lat - XRAY USE ONLY 09:34:21 CDT CPT-19399 Chest 2V Frontal and Lat - XRAY USE ONLY 10:48:51 CDT CPT-01174 LS spine comp w obliq 13:28:00 [employer] CPT-J1040 Depo Medrol 80 mg (Methyl Prednisolone Acetate) 10:51: 28 [employer] CPT-J1100 Decadron 8mg (Dexamethasone) 10:51:28 [employer] CPT-58670 Abx/Therapy Injection 10:51:28 [employer] CPT-J1100 Decadron 8mg (Dexamethasone) 21:02:30 [employer] CPT-J1040 Depo Medrol 80 mg (Methyl Prednisolone Acetate) 21:02: 30 [employer] [id number] Event Monitor - MC Transmission 09:12:32 CDT 08/06 [id number] Event Monitor - MC review and interp 09:12:32 CDT [id number] Event Monitor - MC recording 09:12:32 CDT CPT-67708 EKG Trac and Interp 16:50:22 CDT CPT-J1030 Depo Medrol 40 mg (Methyl Prednisolone Acetate) 17:05: 54 CDT CPT-J1100 Decadron 4mg (Dexamethasone) 17:05:54 CDT CPT-32785 Abx/Therapy Injection 17:05:54 CDT CPT-J1100 Decadron 4mg (Dexamethasone) 16:55:28 CDT CPT-J1030 Depo Medrol 40 mg (Methyl Prednisolone Acetate) 16:55: 28 CDT CPT-95596 Ankle Complete - Min 3V 15:58:50 CDT CPT-67720 Knee 3V 15:58:50 CDT CPT-83141 Hip comp min 2V 15:58:50 CDT CPT-J2270 Morphine Sulfate 10 mg 14:25:44 [employer] CPT-J2550 Phenergan 12.5 mg (Promethazine) 14:25:44 [employer] CPT-73144 Abx/Therapy Injection 14:25:44 [employer] CPT-J2550 Phenergan 12.5 mg (Promethazine) 14:08:03 [employer] CPT-J2270 Morphine Sulfate 10 mg 14:08:03 [employer] CPT-72244 Bladder Scan 15:00:38 CDT CPT-TCMM Transitional Care Mgmt-Moderate 09:52:22 CDT CPT-J1030 Depo Medrol 40 mg (Methyl Prednisolone Acetate) 10:55: 18 CDT CPT-J1100 Decadron 4mg (Dexamethasone) 10:55:18 CDT CPT-88495 Abx/Therapy Injection 10:55:18 CDT CPT-J1030 Depo Medrol 40 mg (Methyl Prednisolone Acetate) 10:22: 32 CDT CPT-J1100 Decadron 4mg (Dexamethasone) 10:22:32 CDT CPT-98507 Postop F/U Visit 14:37:13 CDT CPT-96685 Ankle Complete - Min 3V 17:11:58 CDT CPT-38739 Foot comp min 3V 17:11:58 CDT CPT-18266 Bladder Scan 09:56:58 CDT CPT-56671 Postop F/U Visit 09:56:58 CDT CPT-48701 Cystoscopy 09:02:42 CDT CPT-65112 Bladder Scan 09:02:42 CDT CPT-97058 Abd single AP View 16:00:35 CDT CPT-09010 Administration single or combination vaccine inc oral 10 :15:43 CDT CPT-11233 Influenza split virus > age 3 10:15:43 CDT CPT-50198 Nail Avulsion 09:24:57 CDT CPT-OV Office Visit 11:15:41 CDT CPT-56185 Abx/Therapy Injection 10:51:30 CDT CPT-J3301 Kenalog 40 mg (Triamcinolone Acetonide) 10:25:12 CDT CPT-J1100 Decadron 4mg (Dexamethasone) 10:25:12 CDT CPT-56989 Anoscopy diagnostic 10:36:12 CDT CPT-OV Office Visit 15:34:31 CDT CPT-49774 Abx/Therapy Injection 08:21:15 [employer] CPT-J1885 Toradol 60 mg (Ketorolac) 10:46:35 [employer] CPT-OV Office Visit 19:51:16 [employer] [employer] CPT-44880 Spec Collection and Handling Fee 14:34:18 [employer] CPT-PV Prev. Care Visit 14:19:18 [employer] CPT-84474 Postop F/U Visit 14:47:51 [employer] CPT-02451 Postop F/U Visit 15:15:14 [employer] CPT-57905 Postop F/U Visit 14:41:43 CDT CPT-17205 Postop F/U Visit 15:47:46 CDT CPT-OV Office Visit 15:27:23 CDT CPT-OV Office Visit 17:20:34 CDT CPT-46937 Abx/Therapy Injection 15:05:57 CDT CPT-J1100 Decadron 8mg (Dexamethasone) 14:44:57 CDT CPT-J1040 Depo Medrol 80 mg (Methyl Prednisolone Acetate) 14:44: 57 CDT CPT-JTINJ Joint Injection 10:17:37 CDT CPT-28846 Administration 2+ single or combination vaccines inc oral 13:01:46 [employer] CPT-92514 Administration single or combination vaccine inc oral 13 :01:46 [employer] CPT-71253 Pneumovax 13:01:46 [employer] CPT-31668 Influenza split virus > age 3 13:01:46 [employer] CPT-07870 Administration single or combination vaccine inc oral 08 :56:49 CDT CPT-03311 Tdap 08:56:49 CDT
--- OUTSIDE RECORDS SUMMARY | 2017-03-21 23:50 | XMS REPORT | Clinical Summary ---
Author Author Admin, MARGRET Organization [facility] Address Unknown Phone Unavailable Allergies, Adverse Reactions, Alerts Allergy Name Reaction Description Start Date Severity Status Provider CHLORHEXIDINE GLUCONATE tongue and gums swollen Critical Active Hoa Otto RMA NORFLEX Rash Critical Active Rodrigo Sarah LIEUTENANT GENERAL TRAZODONE HCL sees things Critical Active Dewayne [...] plants [except food] ANGIOEDEMA 995.1 Resolved Yolande Lnidsay MD PhD Angioneurotic edema, not elsewhere classified [...] of 412 Active Hoa Otto [facility] Old myocardial infarction ANKLE PAIN, RIGHT ICD-719.47 [...] PhD Sinusitis, maxillary, acute ICD-461.0 Inactive Yolande Linsday MD PhD Sinusitis ICD-461.9 Inactive Yolande Lindsay [...] bite ICD-989.5 Inactive Yolande Lindsay MD PhD Sinusitis, acute ICD-461.9 Inactive Yolande Lindsay MD PhD Muscle spasm, back ICD-724.8 Inactive Yolande Lindsay MD PhD Medication List Medication Instructions Start Date Stop Date Generic Name NDC Status Provider Patient Instruction CYCLOBENZAPRINE HCL 10 MG TABS 1 tablet by mouth three times daily as needed for muscle spasm/pain CYCLOBENZAPRINE HCL 07395906432 Active Yolande Lindsay MD PhD Active CALCIUM 600+D PLUS MINERALS 600-400 MG-UNIT ORAL CHEW 1 tab by mouth daily CALCIUM CARBONATE-VIT D-MIN 20849890832 Active Yolande Lindsay MD PhD Active ONDANSETRON 4 MG TBDP 1 q4h PRN nausea ONDANSETRON 68201896766 Active Yolande Lindsay MD PhD Active ADULT ASPIRIN EC LOW STRENGTH 81 MG TBEC Take 1 tablet by mouth daily 2014 ASPIRIN 32595338118 No Longer Active Yolande Lindsay MD PhD Active ZOFRAN ODT 4 MG TBDP 1 pill dissolved by mouth every 4 hours if needed for nausea ONDANSETRON 95794802268 No Longer Active Yolande Lindsay MD PhD Active CEFTIN 500 MG TAB 1 twice a day CEFUROXIME AXETIL 29253466363 No Longer Active Yolande Lindsay MD PhD Active ALBUTEROL SULFATE 0.083 % NEBU SOLN one vial per nebulizer every 4-6 hours as needed ALBUTEROL SULFATE 81304576168 No Longer Active Alexis Ordaz MD Active DOXYCYCLINE HYCLATE 100 MG CAP 1 cap by mouth twice daily DOXYCYCLINE HYCLATE 64683010172 No Longer Active Yolande Lindsay MD PhD Active CYCLOBENZAPRINE HCL 10 MG TABS 1/2 - 1 tab by mouth three times daily if needed for spasms/pain CYCLOBENZAPRINE HCL 25246173170 No Longer Active Yolande Lindsay MD PhD Active TRILEPTAL 600 MG TABS Take one 1/2 tablet in Am and 1 tablet at night OXCARBAZEPINE 89733824373 Active Yolande Lindsay MD PhD Active AZITHROMYCIN 250 MG TABS 2 pills on day 1, then 1 pill daily x 4 days AZITHROMYCIN 86556519542 No Longer Active Yolande Lindsay MD PhD Active XOPENEX 1.25 MG/3ML NEBU 1 neb every 4 hours if needed for cough/congestion LEVALBUTEROL HCL 47962394075 No Longer Active Yolande Lindsay MD PhD Active DOXYCYCLINE HYCLATE 100 MG TAB 1 tab twice a day for 14 days 2013 DOXYCYCLINE HYCLATE 49424027995 No Longer Active Yolande Lindsay MD PhD Active LEVOTHYROXINE SODIUM 75 MCG TABS Take 1 tab daily LEVOTHYROXINE SODIUM 96482473659 Active Yolande Lindsay MD PhD Active PREVACID 30 MG CPDR Take 1 tablet by mouth daily-PRN LANSOPRAZOLE 50306980319 No Longer Active Yolande Lindsay MD PhD Active PA VITAMIN D-3 2000 UNIT CAPS 1 CAP PO DAILY CHOLECALCIFEROL 16074342760 No Longer Active Yolande Lindsay MD PhD Active CEFDINIR 300 MG CAPS by mouth twice a day CEFDINIR 66681108157 No Longer Active Gab Padron MD Active TOPAMAX 50 MG TABS 1 PO twice daily TOPIRAMATE 96495412041 Active Yolande Lindsay MD PhD Active AZITHROMYCIN 250 MG TABS 2 po qd x 1 day, then 1 po qd x 4 days AZITHROMYCIN 31010142591 No Longer Active Yolande Lindsay MD PhD Active DICLOFENAC SODIUM 75 MG TBEC 1 tablet by q 12 hours PRN headaches DICLOFENAC SODIUM 20391292445 No Longer Active Yolande Lindsay MD PhD Active FLONASE 50 MCG/ACT SUSP 1 spray each nostril am and hs FLUTICASONE PROPIONATE 64508628298 No Longer Active Todd Callaway MD Active ANUSOL-HC 25 MG SUPPOSITORY 1 rectally twice a day as needed for hemorrhoids HYDROCORTISONE JAYDEN (RECTAL) 33210728136 No Longer Active Yolande Lindsay MD PhD Active ANUSOL-HC 25 MG SUPPOSITORY 1 suppository rectally each evening as needed for anal fissure HYDROCORTISONE JAYDEN (RECTAL) 65462518940 No Longer Active LONNIE Iglesias Active VALIUM 5 MG TAB 1 po 30 minutes prior to your MRI DIAZEPAM 01423898192 No Longer Active LONNIE Iglesias Active METHOCARBAMOL 750 MG TABS 1 PO QID PRN METHOCARBAMOL 18306361530 No Longer Active Daphne Wetzel APRN Active NITROSTAT 0.4 MG SUBL as directed NITROGLYCERIN 71452630723 No Longer Active Rodrigo Sarah APRN Active ROBAXIN-750 750 MG TABS 2 four times a day for 3 days as needed for muscle spasm, then 1 four times a day as needed METHOCARBAMOL 09391804631 No Longer Active Rodrigo Sarah APRN Active HYDROCODONE-ACETAMINOPHEN 5-325 MG TABS 1 q 4-6 hrs prn HYDROCODONE-ACETAMINOPHEN 98670833014 No Longer Active Rodrigo Sarah APRN Active VERAPAMIL HCL CR 180 MG CR-TABS TAKE 1 TAB DAILY VERAPAMIL HCL 61876364288 No Longer Active Yolande Lindsay MD PhD Active BACTRIM DS 800-160 MG TAB 1 tab by mouth twice daily TRIMETHOPRIM-SULFAMETHOXAZOLE 69321326305 No Longer Active Yolande Lindsay MD PhD Active NEXIUM 40 MG PACK 1 by mouth daily ESOMEPRAZOLE MAGNESIUM 94365358556 No Longer Active Des Hines MD Active EPIPEN 2-CHARLETTE 0.3 MG/0.3ML OMARI as need for allergic reaction EPINEPHRINE 64842174934 Active Yolande Lindsay MD PhD Active LISINOPRIL 10 MG TABS 1 PO Q D FOR BP LISINOPRIL 37305762161 Active Yolande Lindsay MD PhD Active NEXIUM 40 MG CPDR 1 PO Q D DAY ESOMEPRAZOLE MAGNESIUM 61668004279 No Longer Active Sadia Orlando RIVERA Active NEXIUM 40 MG PACK 1 by mouth daily NEXIUM 40 MG PACK ESOMEPRAZOLE MAGNESIUM Inactive VERAPAMIL HCL CR 180 MG CR-TABS TAKE 1 TAB DAILY VERAPAMIL HCL CR 180 MG CR-TABS VERAPAMIL HCL Inactive HYDROCODONE-ACETAMINOPHEN 5-325 MG TABS 1 q 4-6 hrs prn HYDROCODONE-ACETAMINOPHEN 5-325 MG TABS 788605 HYDROCODONE-ACETAMINOPHEN Inactive ROBAXIN-750 750 MG TABS 2 four times a day for 3 days as needed for muscle spasm, then 1 four times a day as needed ROBAXIN-750 750 MG TABS 577515 METHOCARBAMOL Inactive NITROSTAT 0.4 MG SUBL as directed NITROSTAT 0.4 MG SUBL NITROGLYCERIN Inactive METHOCARBAMOL 750 MG TABS 1 PO QID PRN METHOCARBAMOL 750 MG TABS 027877 METHOCARBAMOL Inactive VALIUM 5 MG TAB 1 po 30 minutes prior to your MRI VALIUM 5 MG TAB 360273 DIAZEPAM Inactive ANUSOL-HC 25 MG SUPPOSITORY 1 suppository rectally each evening as needed for anal fissure ANUSOL-HC 25 MG SUPPOSITORY 4864235 HYDROCORTISONE JAYDEN (RECTAL) Inactive ANUSOL-HC 25 MG SUPPOSITORY 1 rectally twice a day as needed for hemorrhoids ANUSOL-HC 25 MG SUPPOSITORY 7294476 HYDROCORTISONE JAYDEN (RECTAL) Inactive FLONASE 50 MCG/ACT SUSP 1 spray each nostril am and hs FLONASE 50 MCG/ACT SUSP 757143 FLUTICASONE PROPIONATE Inactive DICLOFENAC SODIUM 75 MG TBEC 1 tablet by q 12 hours PRN headaches DICLOFENAC SODIUM 75 MG TBEC 682647 DICLOFENAC SODIUM Inactive PA VITAMIN D-3 2000 UNIT CAPS 1 CAP PO DAILY PA VITAMIN D-3 2000 UNIT CAPS CHOLECALCIFEROL Inactive PREVACID 30 MG CPDR Take 1 tablet by mouth daily-PRN PREVACID 30 MG CPDR 740569 LANSOPRAZOLE Inactive DOXYCYCLINE HYCLATE 100 MG TAB 1 tab twice a day for 14 days 2013 DOXYCYCLINE HYCLATE 100 MG TAB 132465 DOXYCYCLINE HYCLATE Inactive XOPENEX 1.25 MG/3ML NEBU 1 neb every 4 hours if needed for cough/congestion XOPENEX 1.25 MG/3ML NEBU LEVALBUTEROL HCL Inactive CYCLOBENZAPRINE HCL 10 MG TABS 1/2 - 1 tab by mouth three times daily if needed for spasms/pain CYCLOBENZAPRINE HCL 10 MG TABS 028319 CYCLOBENZAPRINE HCL Inactive ALBUTEROL SULFATE 0.083 % NEBU SOLN one vial per nebulizer every 4-6 hours as needed ALBUTEROL SULFATE 0.083 % NEBU SOLN 362661 ALBUTEROL SULFATE Inactive CEFTIN 500 MG TAB 1 twice a day CEFTIN 500 MG TAB 807228 CEFUROXIME AXETIL Inactive ZOFRAN ODT 4 MG TBDP 1 pill dissolved by mouth every 4 hours if needed for nausea ZOFRAN ODT 4 MG TBDP 494360 ONDANSETRON Inactive ADULT ASPIRIN EC LOW STRENGTH 81 MG TBEC Take 1 tablet by mouth daily 2014 ADULT ASPIRIN EC LOW STRENGTH 81 MG TBEC 857866 ASPIRIN Inactive BACTRIM DS 800-160 MG TAB 1 tab by mouth twice daily BACTRIM DS 800-160 MG TAB TRIMETHOPRIM-SULFAMETHOXAZOLE Inactive AZITHROMYCIN 250 MG TABS 2 po qd x 1 day, then 1 po qd x 4 days AZITHROMYCIN 250 MG TABS 4050910 AZITHROMYCIN Inactive CEFDINIR 300 MG CAPS by mouth twice a day CEFDINIR 300 MG CAPS 20020708 CEFDINIR Inactive AZITHROMYCIN 250 MG TABS 2 pills on day 1, then 1 pill daily x 4 days AZITHROMYCIN 250 MG TABS 5002528 AZITHROMYCIN Inactive DOXYCYCLINE HYCLATE 100 MG CAP 1 cap by mouth twice daily DOXYCYCLINE HYCLATE 100 MG CAP 19890510 DOXYCYCLINE HYCLATE Inactive Immunizations Vaccine Administration Date Value Standard Description Seasonal influenza vaccine, injectable, containing preservative, for > 3 years old (Afluria, FluLaval, Fluzone, Fluvirin, Fluarix, Agriflu(>=18 yo)) Fluzone (>3 yrs.) [RDY379] Influenza, seasonal, injectable influenza immunization (Flu Vax) has been administered Influenza - Unspecified Formulation [CVX88] influenza virus vaccine, unspecified formulation pneumococcal immunization administered Pneumovax 23 [CVX33] pneumococcal polysaccharide vaccine, 23 valent Seasonal influenza vaccine, injectable, containing preservative, for > 3 years old (Afluria, FluLaval, Fluzone, Fluvirin, Fluarix, Agriflu(>=18 yo)) Fluzone (>3 yrs.) [CVX598] Influenza, seasonal, injectable dT (Diphtheria and Tetanus) booster given given Td(adult) unspecified formulation Boostrix (Tetanus toxoid, reduced diphtheria toxoid and acellular pertussis vaccine, adsorbed), booster Boostrix [HEE453] tetanus toxoid, reduced diphtheria toxoid, and acellular [...] E&M - 3141-9 223 [lb_av] Weight Measured Diagnostic Results Date Name [...] Cardio IQ Advanced Lipid and Inlammation Panel /81024 - Chemistry cholesterol, serum 198 mg/dL [phone]/04/30 HDL cholesterol, serum 65 mg/dL > OR=46 triglyceride, serum, fasting 82 mg/dL LDL cholesterol, serum 117 mg/dL cholesterol/HDL ratio, serum 3.0 calc < OR=5.0 Lab Report: CBC W/DIFF, Basic Metabolic Panel - Chemistry sodium, serum 144 mmol/L [phone]/01/21 potassium, serum 4.2 mmol/L 3.5-5.2 chloride, serum [...] Panel - Chemistry sodium, serum 144 mmol/L [phone]/12/15 potassium, serum 5.4 mmol/L 3.5-5.2 chloride, serum [...] % 11.6-14.8 platelet count 186 10^3/MM^3 10*3/mm3 536-706 0134/12/15 leukocyte count, blood 4.1 10^3/MM^3 10*3/mm3 4.6-10.2 neutrophils as percent of blood leukocytes 55.5 % 42.2-75.2 monocytes as percent of blood leukocytes 8.4 % 1.7-9.3 Lab Report: CBC, Comp. Metabolic Panel, FreeT4, TSH, UA - Chemistry protein, total urine random Negative mg/dL Negative sodium, serum 143 mmol/L 484-226 8262/10/24 potassium, serum 3.9 mmol/L 3.5-5.2 chloride, serum [...] % 11.6-14.8 platelet count 186 10^3/MM^3 10*3/mm3 262-573 8643/10/24 mean corpuscular volume, RBC 92 fL 80-97 [...] 51 mg/dL 30-200 cholesterol, serum 173 mg/dL 534-838 5193/04/28 HDL cholesterol, serum 63 mg/dL 32-96 LDL [...] 0-19 Encounters Code Encounter Date Provider Facility CPT-44935 Level 3 Est. Patient 07:37:45 CDT Yolande Lindsay MD PhD [facility] CPT-85081 Level 3 Est. Patient 17:03:46 CDT Yolande Lindsay MD PhD [facility] CPT-62531 Level 4 Est. Patient 20:02:13 [employer] Yolande Lindsay MD PhD [facility] CPT-86343 Level 3 Est. Patient 16:02:07 [employer] Alexis Ordaz MD [facility] CPT-47029 Level 3 Est. Patient 12:41:24 [employer] Yolande Lindsay MD PhD [facility] CPT-19290 Level 3 Est. Patient 15:41:20 [employer] Yolande Lindsay MD PhD [facility] CPT-39908 Level 3 Est. Patient 13:20:02 [employer] LEAD Yolande Lindsay MD [facility] CPT-07960 Level 3 Est. Patient 15:00:38 CDT Jared Og MD [facility] CPT-62202 Level 3 Est. Patient 10:22:32 CDT Yolande Lindsay MD [facility]-14851 Level 3 Est. Patient 17:12:58 CDT Yolande Lindsay MD [facility] CPT-78280 Level 4 Est. Patient 13:30:58 CDT Yolande Lindsay MD [facility] CPT-59542 Level 4 New Patient 09:02:42 CDT Jared Og MD [facility]-65317 Level 3 Est. Patient 08:19:07 CDT Yolande Lindsay MD [facility]-94037 Level 3 Est. Patient 12:00:13 [employer] Gab Padron MD [facility]-56252 Level 3 Est. Patient 16:15:23 [employer] Yolande Lindsay MD [facility] CPT-24548 Level 2 Est. Patient 19:47:15 CDT Yolande Lindsay MD [facility]-35855 Level 3 Est. Patient 21:38:31 CDT Yolande Lindsay MD [facility] CPT-34415 Level 3 Est. Patient 10:25:12 CDT Adiel PERAZA [facility] CPT-34777 Level 4 Est. Patient 10:51:58 CDT Yolande Lindsay MD [facility]-70175 Level 3 Est. Patient 14:04:55 [employer] Rodrigo [facility] CPT-62232 Level 3 Est. Patient 10:46:35 [employer] Rodrigo [facility] CPT-52182 Level 3 Est. Patient 14:24:37 [employer] LE[employer] Yolande Lindsay MD [facility] CPT-07747 Level 3 Est. Patient 17:41:58 [employer] LE[employer] Yolande Lindsay MD [facility] CPT-28769 Level 2 Est. Patient 22:01:41 [employer] Rodrigo [facility] CPT-39958 Level 2 Est. Patient 22:01:11 [employer] LE[employer] Rodrigo [facility] CPT-74131 Level 3 Est. Patient 10:12:29 [employer] LE[employer] Rodrigo [facility] CPT-80490 Level 3 Est. Patient 11:05:44 CDT Alexis Ordaz MD [facility] CPT-06924 Level 3 Est. Patient 14:57:20 CDT Yolande Lindsay MD [facility] CPT-43083 Level 3 Est. Patient 14:40:57 CDT Yolande Lindsay MD [facility] CPT-45273 Level 3 Est. Patient 20:55:40 CDT Yolande Lindsay MD [facility] CPT-34702 Level 3 Est. Patient 12:42:38 [employer] LEAD Yolande Lindsay MD [facility] CPT-93387 Level 3 Est. Patient 11:54:49 [employer] LEAD Des Hines MD [facility] CPT-33986 Level 3 Est. Patient 17:06:38 CDT Dewayne PERZAA [facility] Procedures Code Procedure Name Date Entry Date Standard Description [id number] Event Monitor - MC Transmission 09:12:32 CDT 08/06 [id number] Event Monitor - MC review and interp 09:12:32 CDT [id number] Event Monitor - MC recording 09:12:32 CDT CPT-43457 EKG Trac and Interp 16:50:22 CDT CPT-J1030 Depo Medrol 40 mg (Methyl Prednisolone Acetate) 17:05: 54 CDT CPT-J1100 Decadron 4mg (Dexamethasone) 17:05:54 CDT CPT-88464 Abx/Therapy Injection 17:05:54 CDT CPT-J1100 Decadron 4mg (Dexamethasone) 16:55:28 CDT CPT-J1030 Depo Medrol 40 mg (Methyl Prednisolone Acetate) 16:55: 28 CDT CPT-59263 Ankle Complete - Min 3V 15:58:50 CDT CPT-76133 Knee 3V 15:58:50 CDT CPT-92419 Hip comp min 2V 15:58:50 CDT CPT-J2270 Morphine Sulfate 10 mg 14:25:44 [employer] CPT-J2550 Phenergan 12.5 mg (Promethazine) 14:25:44 [employer] CPT-91820 Abx/Therapy Injection 14:25:44 [employer] LE[employer] CPT-J2550 Phenergan 12.5 mg (Promethazine) 14:08:03 [employer] CPT-J2270 Morphine Sulfate 10 mg 14:08:03 [employer] CPT-73201 Bladder Scan 15:00:38 CDT CPT-TCMM Transitional Care Mgmt-Moderate 09:52:22 CDT CPT-J1030 Depo Medrol 40 mg (Methyl Prednisolone Acetate) 10:55: 18 CDT CPT-J1100 Decadron 4mg (Dexamethasone) 10:55:18 CDT CPT-92757 Abx/Therapy Injection 10:55:18 CDT CPT-J1030 Depo Medrol 40 mg (Methyl Prednisolone Acetate) 10:22: 32 CDT CPT-J1100 Decadron 4mg (Dexamethasone) 10:22:32 CDT CPT-22901 Postop F/U Visit 14:37:13 CDT CPT-73672 Ankle Complete - Min 3V 17:11:58 CDT CPT-12851 Foot comp min 3V 17:11:58 CDT CPT-59820 Bladder Scan 09:56:58 CDT CPT-41098 Postop F/U Visit 09:56:58 CDT CPT-70334 Cystoscopy 09:02:42 CDT CPT-19117 Bladder Scan 09:02:42 CDT CPT-83263 Abd single AP View 16:00:35 CDT CPT-54137 Administration single or combination vaccine inc oral 10 :15:43 CDT CPT-38282 Influenza split virus > age 3 10:15:43 CDT CPT-90712 Nail Avulsion 09:24:57 CDT CPT-OV Office Visit 11:15:41 CDT CPT-76835 Abx/Therapy Injection 10:51:30 CDT CPT-J3301 Kenalog 40 mg (Triamcinolone Acetonide) 10:25:12 CDT CPT-J1100 Decadron 4mg (Dexamethasone) 10:25:12 CDT CPT-08964 Anoscopy diagnostic 10:36:12 CDT CPT-OV Office Visit 15:34:31 CDT CPT-78222 Abx/Therapy Injection 08:21:15 [employer] CPT-J1885 Toradol 60 mg (Ketorolac) 10:46:35 [employer] LE[employer] CPT-OV Office Visit 19:51:16 [employer] CPT-86253 Spec Collection and Handling Fee 14:34:18 [employer] CPT-PV Prev. Care Visit 14:19:18 [employer] CPT-37353 Postop F/U Visit 14:47:51 [employer] CPT-24313 Postop F/U Visit 15:15:14 [employer] CPT-10084 Postop F/U Visit 14:41:43 CDT CPT-92579 Postop F/U Visit 15:47:46 CDT CPT-OV Office Visit 15:27:23 CDT CPT-OV Office Visit 17:20:34 CDT CPT-37762 Abx/Therapy Injection 15:05:57 CDT CPT-J1100 Decadron 8mg (Dexamethasone) 14:44:57 CDT CPT-J1040 Depo Medrol 80 mg (Methyl Prednisolone Acetate) 14:44: 57 CDT CPT-JTINJ Joint Injection 10:17:37 CDT CPT-50962 Administration 2+ single or combination vaccines inc oral 13:01:46 [employer] CPT-57760 Administration single or combination vaccine inc oral 13 :01:46 [employer] CPT-30299 Pneumovax 13:01:46 [employer] CPT-08373 Influenza split virus > age 3 13:01:46 [employer] CPT-40623 Administration single or combination vaccine inc oral 08 :56:49 CDT CPT-74012 Tdap 08:56:49 CDT
--- OUTSIDE RECORDS SUMMARY | 2017-03-21 23:53 | XMS REPORT | Clinical Summary ---
Author Author Admin, MARGRET Organization [facility] Address Unknown Phone Unavailable Allergies, Adverse Reactions, Alerts Allergy Name Reaction Description Start Date Severity Status Provider VALENTIN Critical Active Rodrigo Montemayorl INTERNET PROJECT MANAGER CHLORHEXIDINE GLUCONATE tongue and gums swollen Critical Active Hoa Kabaford RMA NORFLEX Rash Critical Active Silvestrellina Frazell INTERNET PROJECT MANAGER TRAZODONE HCL sees things Critical [...] ABDOMINAL PAIN, LEFT LOWER QUADRANT 789.04 Resolved Yoalnde Lindsay MD PhD Abdominal pain, left lower quadrant HEMATOCHEZIA 578.1 Resolved Yoalnde Lindsay MD PhD Blood in stool HEMORRHOIDS, [...] hx of 412 Active Hoa Otto [facility] Old myocardial infarction Pelvic pain 789.09 Active Yolande Lindsay MD PhD Abdominal pain, other specified site; multiple sites Edema 782.3 Active Yolande Lindsay MD PhD Edema Rash 782.1 Active Yolande Lindsay MD PhD Rash and other nonspecific skin eruption Back pain, lumbar 724.2 Active Gab Padron MD Lumbago Cough 786.2 Active Jillina Tyrel INTERNET PROJECT MANAGER Cough 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 Jillina Frazellilian INTERNET PROJECT MANAGER 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 Anemia 285.9 Active Gab Padron MD Anemia, unspecified Conjunctivitis 372.30 Active Jillina Tyrel INTERNET PROJECT MANAGER Conjunctivitis, unspecified Sinusitis 473.9 Active Jillina Frazell INTERNET PROJECT MANAGER Unspecified sinusitis (chronic) Nonspecific syndrome suggestive of viral illness 079.99 Active Rodrigo Sarah APRN Unspecified viral infection Laryngitis 464.00 Active Jillina Tyrel INTERNET PROJECT MANAGER Acute laryngitis without mention of obstruction Abdominal [...] TBDP 1 po q6hr PRN Nausea ONDANSETRON 60672704496 Active Jillina Frazell INTERNET PROJECT MANAGER Active IBUPROFEN 600 MG TAB 1 tablet by mouth every 6 hours for 7 days, then 1 tablet every 6 hours as needed. Take with food IBUPROFEN 77691845401 Active Jillina Frazell INTERNET PROJECT MANAGER Active BACTRIM DS 800-160 MG TAB 1 tab by mouth twice daily TRIMETHOPRIM-SULFAMETHOXAZOLE 09488075929 No Longer Active Gab Padron MD Active ADVAIR DISKUS 250-50 MCG/DOSE AEPB 1 puff BID FLUTICASONE- SALMETEROL 39193311977 Active Jillina Frazell INTERNET PROJECT MANAGER Active LEVOTHYROXINE SODIUM 75 MCG TABS Take 1 tab daily LEVOTHYROXINE SODIUM 13685311842 No Longer Active Mariana FLEMING Active SYNTHROID 88 MCG ORAL TABS Take one by mouth daily LEVOTHYROXINE SODIUM 21586129417 Active Mariana FLEMING Active CHERATUSSIN AC 100-10 MG/5ML SYRP 1 tsp by mouth every 4 hours as needed for cough GUAIFENESIN-CODEINE 82047880777 No Longer Active Gab Padron MD Active POLYTRIM 29267-8.1 UNIT/ML-% SOLN 1 gtt to affected eye q3h x 7 days POLYMYXIN B-TRIMETHOPRIM 79660705825 No Longer Active Gab Padron MD Active FLUTICASONE PROPIONATE 50 MCG/ACT SUSP 1 to 2 sprays each nostril daily 04/21 FLUTICASONE PROPIONATE 49096966206 No Longer Active Gab Padron MD Active TRILEPTAL 600 MG TABS Take one 1 tablet in Am and 1 tablet at night OXCARBAZEPINE 68111159254 Active Gab Padron MD Active CEFDINIR 300 MG CAPS 1 po BID x 10 days CEFDINIR 57457498426 No Longer Active Rodrigo Sarah APRN Active CEFTIN 500 MG TAB 1 twice a day CEFUROXIME AXETIL 95643979381 No Longer Active Gab Padron MD Active AZITHROMYCIN 250 MG TABS 2 po qd x 1 day, then 1 po qd x 4 days AZITHROMYCIN 11598114237 No Longer Active Rodrigo Sarah APRN Active CLARITIN 10 MG TAB 1 tablet by mouth daily as needed for allergies LORATADINE 64187738278 Active Silvestrellnacho Sarah APRN Active OXYCODONE HCL 5 MG ORAL CAPS 1 TAB PO Q HS OXYCODONE HCL 53425219893 No Longer Active Rodrigo Sarah APRN Active NIASPAN 500 MG ORAL CR-TABS 1 pill nightly x 1 week, then 2 pills nightly x 1 week, then 3 pills nightly x 1 week, then 4 pills nightly NIACIN (ANTIHYPERLIPIDEMIC) 07067986377 No Longer Active Rodrigo Sarah APRN Active NIACIN 500 MG TABS 1 pill by mouth nightly x 1 week, then 2 pills x 1 week, then 3 pills x 1 week, then 4 pills nightly - take after evening meal, with applesauce or an apple NIACIN 36227445052 No Longer Active Yolande Lindsay MD PhD Active FISH OIL 1000 MG CAPS 3 pills daily OMEGA-3 FATTY ACIDS 71360915628 Active Yolande Lindsay MD PhD Active TRIAMCINOLONE ACETONIDE 0.1 % CREA apply bid sparingly to rash TRIAMCINOLONE ACETONIDE 61549678146 Active Yolande Lindsay MD PhD Active FUROSEMIDE 20 MG TAB 1 tablet by mouth daily FUROSEMIDE 16965059036 Active Tisha Lambert APRN Active LISINOPRIL 20 MG ORAL TABS 1 tab by mouth daily LISINOPRIL 73993262230 Active Gab Padron MD Active FUROSEMIDE 20 MG TABS 1 pill by mouth daily, for edema FUROSEMIDE 85169507199 No Longer Active Yolande Lindsay MD PhD Active ATORVASTATIN CALCIUM 10 MG TABS 1 pill by mouth daily, for cholesterol 09/06 ATORVASTATIN CALCIUM 54933254087 Active Gab Padron MD Active CALCIUM 600+D PLUS MINERALS 600-400 MG-UNIT ORAL CHEW 1 tab by mouth daily CALCIUM CARBONATE-VIT D-MIN 93207054025 No Longer Active Yolande Lindsay MD PhD Active CYCLOBENZAPRINE HCL 10 MG TABS 1 tablet by mouth three times daily as needed for muscle spasm/pain CYCLOBENZAPRINE HCL 04268018244 Active Yolande Lindsay MD PhD Active ONDANSETRON 4 MG TBDP 1 q4h PRN nausea ONDANSETRON 11057980903 Active Yolande Lindsay MD PhD Active ADULT ASPIRIN EC LOW STRENGTH 81 MG TBEC Take 1 tablet by mouth daily 2014 ASPIRIN 86034971965 No Longer Active Yolande Lindsay MD PhD Active ZOFRAN ODT 4 MG TBDP 1 pill dissolved by mouth every 4 hours if needed for nausea ONDANSETRON 21021983695 No Longer Active Yolande Lindsay MD PhD Active CEFTIN 500 MG TAB 1 twice a day CEFUROXIME AXETIL 31278024261 No Longer Active Yolande Lindsay MD PhD Active ALBUTEROL SULFATE 0.083 % NEBU SOLN one vial per nebulizer every 4-6 hours as needed ALBUTEROL SULFATE 59379090865 No Longer Active Alexis Ordaz MD Active DOXYCYCLINE HYCLATE 100 MG CAP 1 cap by mouth twice daily DOXYCYCLINE HYCLATE 83920219324 No Longer Active Yolande Lindsay MD PhD Active CYCLOBENZAPRINE HCL 10 MG TABS 1/2 - 1 tab by mouth three times daily if needed for spasms/pain CYCLOBENZAPRINE HCL 18816495901 No Longer Active Yolande Lindsay MD PhD Active AZITHROMYCIN 250 MG TABS 2 pills on day 1, then 1 pill daily x 4 days AZITHROMYCIN 25282903981 No Longer Active Yolande Lindsay MD PhD Active XOPENEX 1.25 MG/3ML NEBU 1 neb every 4 hours if needed for cough/congestion LEVALBUTEROL HCL 39948895563 No Longer Active Yolande Lindsay MD PhD Active DOXYCYCLINE HYCLATE 100 MG TAB 1 tab twice a day for 14 days 2013 DOXYCYCLINE HYCLATE 67645872105 No Longer Active Yolande Lindsay MD PhD Active PREVACID 30 MG CPDR Take 1 tablet by mouth daily-PRN LANSOPRAZOLE 40664321832 No Longer Active Yolande Lindsay MD PhD Active PA VITAMIN D-3 2000 UNIT CAPS 1 CAP PO DAILY CHOLECALCIFEROL 78944704621 No Longer Active Yolande Lindsay MD PhD Active CEFDINIR 300 MG CAPS by mouth twice a day CEFDINIR 09997434534 No Longer Active Gab Padron MD Active TOPAMAX 50 MG TABS 1 PO twice daily TOPIRAMATE 78062052813 Active Yolande Lindsay MD PhD Active AZITHROMYCIN 250 MG TABS 2 po qd x 1 day, then 1 po qd x 4 days AZITHROMYCIN 41824697903 No Longer Active Yolande Lindsay MD PhD Active DICLOFENAC SODIUM 75 MG TBEC 1 tablet by q 12 hours PRN headaches DICLOFENAC SODIUM 18049387119 No Longer Active Yolande Lindsay MD PhD Active FLONASE 50 MCG/ACT SUSP 1 spray each nostril am and hs FLUTICASONE PROPIONATE 47033357704 No Longer Active Todd Callaway MD Active ANUSOL-HC 25 MG SUPPOSITORY 1 rectally twice a day as needed for hemorrhoids HYDROCORTISONE JAYDEN (RECTAL) 98786379559 No Longer Active Yolande Lindsay MD PhD Active ANUSOL-HC 25 MG SUPPOSITORY 1 suppository rectally each evening as needed for anal fissure HYDROCORTISONE JAYDEN (RECTAL) 37418808722 No Longer Active LONNIE Iglesias Active VALIUM 5 MG TAB 1 po 30 minutes prior to your MRI DIAZEPAM 41673533948 No Longer Active LONNIE Iglesias Active METHOCARBAMOL 750 MG TABS 1 PO QID PRN METHOCARBAMOL 93853102862 No Longer Active Daphne Wetzel APRN Active NITROSTAT 0.4 MG SUBL as directed NITROGLYCERIN 57485139845 No Longer Active Rodrigo Sarah APRN Active ROBAXIN-750 750 MG TABS 2 four times a day for 3 days as needed for muscle spasm, then 1 four times a day as needed METHOCARBAMOL 92264800078 No Longer Active Rodrigo Sarah APRN Active HYDROCODONE-ACETAMINOPHEN 5-325 MG TABS 1 q 4-6 hrs prn HYDROCODONE-ACETAMINOPHEN 43221220827 No Longer Active Rodrigo Sarah APRN Active VERAPAMIL HCL CR 180 MG CR-TABS TAKE 1 TAB DAILY VERAPAMIL HCL 31895324464 No Longer Active Yolande Lindsay MD PhD Active BACTRIM DS 800-160 MG TAB 1 tab by mouth twice daily TRIMETHOPRIM-SULFAMETHOXAZOLE 96509873796 No Longer Active Yolande Lindsay MD PhD Active NEXIUM 40 MG PACK 1 by mouth daily ESOMEPRAZOLE MAGNESIUM 01513613685 No Longer Active Des Hines MD Active EPIPEN 2-CHARLETTE 0.3 MG/0.3ML OMARI as need for allergic reaction EPINEPHRINE 45117899001 Active Yolande Lindsay MD PhD Active NEXIUM 40 MG CPDR 1 PO Q D DAY ESOMEPRAZOLE MAGNESIUM 15827539051 No Longer Active Sadia Perry RN Active NEXIUM 40 MG PACK 1 by mouth daily NEXIUM 40 MG PACK ESOMEPRAZOLE MAGNESIUM Inactive VERAPAMIL HCL CR 180 MG CR-TABS TAKE 1 TAB DAILY VERAPAMIL HCL CR 180 MG CR-TABS VERAPAMIL HCL Inactive HYDROCODONE-ACETAMINOPHEN 5-325 MG TABS 1 q 4-6 hrs prn HYDROCODONE-ACETAMINOPHEN 5-325 MG TABS 062957 HYDROCODONE-ACETAMINOPHEN Inactive ROBAXIN-750 750 MG TABS 2 four times a day for 3 days as needed for muscle spasm, then 1 four times a day as needed ROBAXIN-750 750 MG TABS 109164 METHOCARBAMOL Inactive NITROSTAT 0.4 MG SUBL as directed NITROSTAT 0.4 MG SUBL NITROGLYCERIN Inactive METHOCARBAMOL 750 MG TABS 1 PO QID PRN METHOCARBAMOL 750 MG TABS 770199 METHOCARBAMOL Inactive VALIUM 5 MG TAB 1 po 30 minutes prior to your MRI VALIUM 5 MG TAB 902966 DIAZEPAM Inactive ANUSOL-HC 25 MG SUPPOSITORY 1 suppository rectally each evening as needed for anal fissure ANUSOL-HC 25 MG SUPPOSITORY 6811612 HYDROCORTISONE JAYDEN (RECTAL) Inactive ANUSOL-HC 25 MG SUPPOSITORY 1 rectally twice a day as needed for hemorrhoids ANUSOL-HC 25 MG SUPPOSITORY 8834004 HYDROCORTISONE JAYDEN (RECTAL) Inactive FLONASE 50 MCG/ACT SUSP 1 spray each nostril am and hs FLONASE 50 MCG/ACT SUSP FLUTICASONE PROPIONATE Inactive DICLOFENAC SODIUM 75 MG TBEC 1 tablet by q 12 hours PRN headaches DICLOFENAC SODIUM 75 MG TBEC 646939 DICLOFENAC SODIUM Inactive PA VITAMIN D-3 2000 UNIT CAPS 1 CAP PO DAILY PA VITAMIN D-3 2000 UNIT CAPS CHOLECALCIFEROL Inactive PREVACID 30 MG CPDR Take 1 tablet by mouth daily-PRN PREVACID 30 MG CPDR 942743 LANSOPRAZOLE Inactive DOXYCYCLINE HYCLATE 100 MG TAB 1 tab twice a day for 14 days 2013 DOXYCYCLINE HYCLATE 100 MG TAB 5552854 DOXYCYCLINE HYCLATE Inactive XOPENEX 1.25 MG/3ML NEBU 1 neb every 4 hours if needed for cough/congestion XOPENEX 1.25 MG/3ML NEBU 093325 LEVALBUTEROL HCL Inactive CYCLOBENZAPRINE HCL 10 MG TABS 1/2 - 1 tab by mouth three times daily if needed for spasms/pain CYCLOBENZAPRINE HCL 10 MG TABS 120613 CYCLOBENZAPRINE HCL Inactive ALBUTEROL SULFATE 0.083 % NEBU SOLN one vial per nebulizer every 4-6 hours as needed ALBUTEROL SULFATE 0.083 % NEBU SOLN 802397 ALBUTEROL SULFATE Inactive CEFTIN 500 MG TAB 1 twice a day CEFTIN 500 MG TAB 747375 CEFUROXIME AXETIL Inactive ZOFRAN ODT 4 MG TBDP 1 pill dissolved by mouth every 4 hours if needed for nausea ZOFRAN ODT 4 MG TBDP 798155 ONDANSETRON Inactive ADULT ASPIRIN EC LOW STRENGTH 81 MG TBEC Take 1 tablet by mouth daily 2014 ADULT ASPIRIN EC LOW STRENGTH 81 MG TBEC 462670 ASPIRIN Inactive CALCIUM 600+D PLUS MINERALS 600-400 [...] or an apple NIACIN 500 MG TABS 566109 NIACIN Inactive NIASPAN 500 MG ORAL CR-TABS 1 pill nightly x 1 week, then 2 pills nightly x 1 week, then 3 pills nightly x 1 week, then 4 pills nightly NIASPAN 500 MG ORAL CR-TABS NIACIN (ANTIHYPERLIPIDEMIC) Inactive OXYCODONE HCL 5 MG ORAL CAPS 1 TAB PO Q HS OXYCODONE HCL 5 MG ORAL CAPS 3754426 OXYCODONE HCL Inactive FLUTICASONE PROPIONATE 50 MCG/ACT SUSP 1 to 2 sprays each nostril daily 04/21 FLUTICASONE PROPIONATE 50 MCG/ACT SUSP 416870 FLUTICASONE PROPIONATE Inactive POLYTRIM 72560-2.1 UNIT/ML-% SOLN 1 gtt to affected eye q3h x 7 days POLYTRIM 98439-4.1 UNIT/ML-% SOLN 661733 POLYMYXIN B- TRIMETHOPRIM Inactive CHERATUSSIN AC 100-10 MG/5ML SYRP 1 tsp by mouth every 4 hours as needed for cough CHERATUSSIN AC 100-10 MG/5ML SYRP 647708 GUAIFENESIN-CODEINE Inactive LEVOTHYROXINE SODIUM 75 MCG TABS Take 1 tab daily LEVOTHYROXINE SODIUM 75 MCG TABS 325408 LEVOTHYROXINE SODIUM Inactive BACTRIM DS 800-160 MG TAB 1 tab by mouth twice daily BACTRIM DS 800-160 MG TAB 980017 TRIMETHOPRIM-SULFAMETHOXAZOLE Inactive AZITHROMYCIN 250 MG TABS 2 po qd x 1 day, then 1 po qd x 4 days AZITHROMYCIN 250 MG TABS 4461055 AZITHROMYCIN Inactive CEFDINIR 300 MG CAPS by mouth twice a day CEFDINIR 300 MG CAPS 20020708 CEFDINIR Inactive AZITHROMYCIN 250 MG TABS 2 pills on day 1, then 1 pill daily x 4 days AZITHROMYCIN 250 MG TABS 4468396 AZITHROMYCIN Inactive DOXYCYCLINE HYCLATE 100 MG CAP 1 cap by mouth twice daily DOXYCYCLINE HYCLATE 100 MG CAP 7017975 DOXYCYCLINE HYCLATE Inactive FUROSEMIDE 20 MG TABS 1 pill by mouth daily, for edema FUROSEMIDE 20 MG TABS 481815 FUROSEMIDE Inactive AZITHROMYCIN 250 MG TABS 2 po qd x 1 day, then 1 po qd x 4 days AZITHROMYCIN 250 MG TABS 0880002 AZITHROMYCIN Inactive CEFTIN 500 MG TAB 1 twice a day CEFTIN 500 MG TAB 735779 CEFUROXIME AXETIL Inactive CEFDINIR 300 MG CAPS 1 po BID x 10 days CEFDINIR 300 MG CAPS 20020708 CEFDINIR Inactive BACTRIM DS 800-160 MG TAB 1 tab by mouth twice daily BACTRIM DS 800-160 MG TAB 224451 TRIMETHOPRIM-SULFAMETHOXAZOLE Inactive Immunizations Vaccine Administration Date Value Standard Description Seasonal influenza vaccine, injectable, containing preservative, for > 3 years old (Afluria, FluLaval, Fluzone, Fluvirin, Fluarix, Agriflu(>=18 yo)) Fluzone (>3 yrs.) [[id number]] Influenza, seasonal, injectable influenza immunization (Flu Vax) has been administered Influenza - Unspecified Formulation [CVX88] influenza virus vaccine, unspecified formulation Seasonal influenza vaccine, injectable, containing preservative, for > 3 years old (Afluria, FluLaval, Fluzone, Fluvirin, Fluarix, Agriflu(>=18 yo)) Fluzone (>3 yrs.) [[id number]] Influenza, seasonal, injectable pneumococcal immunization administered Pneumovax 23 [CVX33] pneumococcal polysaccharide vaccine, 23 valent dT (Diphtheria and Tetanus) booster given given Td(adult) unspecified formulation Boostrix (Tetanus toxoid, reduced diphtheria toxoid and acellular pertussis vaccine, adsorbed), booster Boostrix [SAK706] tetanus toxoid, reduced diphtheria toxoid, and acellular [...] Panel - Chemistry sodium, serum 142 mmol/L 432-536 8382/06/30 potassium, serum 4.4 mmol/L 3.5-5.2 chloride, serum 108 mmol/L 98-107 carbon dioxide, venous blood 25.1 mmol/L 21.0-32.0 blood glucose 82 mg/dL 65-110 calcium, serum 9.1 mg/dL 8.5-10.1 urea nitrogen, blood 18 mg/dL 7-18 creatinine, serum 1.31 mg/dL 0.55-1.30 Lab Report: [facility] Advanced Lipid and Inlammation Panel /43578 - Chemistry cholesterol, serum 148 mg/dL 829-291 0942/09/02 HDL cholesterol, serum 55 mg/dL > OR=46 [...] (L) - Chemistry sodium, serum 145 mmol/L 913-604 1899/09/02 potassium, serum 4.6 mmol/L 3.5-5.2 chloride, serum [...] Rate - Chemistry sodium, serum 139 mmol/L 219-570 1342/03/24 carbon dioxide, venous blood 22.4 mmol/L 21.0-32.0 [...] ... - Chemistry sodium, serum 143 mmol/L 542-043 4244/05/02 carbon dioxide, venous blood 25.6 mmol/L 21.0-32.0 [...] Negative mg/dL Negative sodium, serum 142 mmol/L 873-366 9530/07/18 carbon dioxide, venous blood 27.8 mmol/L 21.0-32.0 [...] mg/dL Encounters Code Encounter Date Provider Facility CPT-39711 Level 3 Est. Patient 15:27:02 CDT Jared Og MD [facility] [place] CPT-86705 Level 4 Est. Patient 09:25:27 CDT Gab Padron MD [facility] CPT-70783 Level 3 Est. Patient 10:29:41 CDT Rodrigo Sarah APRN [facility] CPT-27635 Level 4 Est. Patient 17:51:05 CDT Gab Padron MD [facility] CPT-71399 Level 3 Est. Patient 14:18:08 CDT Gab Padron MD [facility] CPT-25215 Level 4 Est. Patient 10:18:54 CDT Gab Padron MD [facility] CPT-89427 Level 3 Est. Patient 11:30:07 CDT Rodrigo Sarah APRN [facility] CPT-08785 Level 4 Est. Patient 21:02:30 SUCTION PLATE ROLLER HAND Gab Padron MD [facility] [place]-58560 Level 3 Est. Patient 11:02:19 SUCTION PLATE ROLLER HAND Gab Padron MD [facility]-25473 Level 4 Est. Patient 22:24:31 SUCTION PLATE ROLLER HAND Gab Padron MD [facility]-73684 Level 3 Est. Patient 18:33:46 SUCTION PLATE ROLLER HAND Gab Padron MD [facility]-56307 Level 3 Est. Patient 16:19:11 CDT Yolande Lindsay MD [facility]-36253 Level 3 Est. Patient 18:59:14 CDT Yolande Lindsay MD [facility]-14068 Level 4 Est. Patient 21:29:26 CDT Yolande Lindsay MD [facility]-94393 Level 3 Est. Patient 07:37:45 CDT Yolande Lindsay MD [facility]-39689 Level 3 Est. Patient 17:03:46 CDT Yolande Lindsay MD [facility]-07785 Level 4 Est. Patient 20:02:13 SUCTION PLATE ROLLER HAND Yolande Lindsay MD [facility]-91275 Level 3 Est. Patient 16:02:07 SUCTION PLATE ROLLER HAND Alexis Ordaz MD [facility]-59470 Level 3 Est. Patient 12:41:24 SUCTION PLATE ROLLER HAND Yolande Lindsay MD [facility]-12130 Level 3 Est. Patient 15:41:20 SUCTION PLATE ROLLER HAND Yolande Lindsay MD [facility]-17615 Level 3 Est. Patient 13:20:02 SUCTION PLATE ROLLER HAND Yolande Lindsay MD [facility]-55334 Level 3 Est. Patient 15:00:38 CDT Jared Og MD [facility]-47352 Level 3 Est. Patient 10:22:32 CDT Yolande Lindsay MD [facility]-18506 Level 3 Est. Patient 17:12:58 CDT Yolande Lindsay MD [facility]-35716 Level 4 Est. Patient 13:30:58 CDT Yolande Lindsay MD [facility]-61651 Level 4 New Patient 09:02:42 CDT Jared Og MD [facility]-48521 Level 3 Est. Patient 08:19:07 CDT Yolande Lindsay MD [facility]-65796 Level 3 Est. Patient 12:00:13 SUCTION PLATE ROLLER HAND Gab Padron MD [facility]-92263 Level 3 Est. Patient 16:15:23 SUCTION PLATE ROLLER HAND Yolande Lindsay MD [facility] CPT-03821 Level 2 Est. Patient 19:47:15 CDT Yolande Lindsay MD [facility]-98206 Level 3 Est. Patient 21:38:31 CDT Yolande Lindsay MD [facility]-84957 Level 3 Est. Patient 10:25:12 CDT Adiel PERAZA [facility] CPT-96583 Level 4 Est. Patient 10:51:58 CDT Yolande Lindsay MD [facility]-91037 Level 3 Est. Patient 14:04:55 SUCTION PLATE ROLLER HAND Rodrigo Sarah [facility]-16073 Level 3 Est. Patient 10:46:35 SUCTION PLATE ROLLER HAND Rodrigo Sarah [facility] CPT-23954 Level 3 Est. Patient 14:24:37 SUCTION PLATE ROLLER HAND Yolande Lindsay MD PhD [facility] CPT-51941 Level 3 Est. Patient 17:41:58 SUCTION PLATE ROLLER HAND Yolande Lindsay MD [facility] CPT-22343 Level 2 Est. Patient 22:01:41 SUCTION PLATE ROLLER HAND Rodrigo Sarah [facility] CPT-20865 Level 2 Est. Patient 22:01:11 SUCTION PLATE ROLLER HAND Rodrigo Sarah [facility] CPT-97649 Level 3 Est. Patient 10:12:29 SUCTION PLATE ROLLER HAND Rodrigo aSrah [facility] CPT-96673 Level 3 Est. Patient 11:05:44 CDT Alexis Ordaz MD [facility] CPT-65335 Level 3 Est. Patient 14:57:20 CDT Yolande Lindsay MD [facility] CPT-69444 Level 3 Est. Patient 14:40:57 CDT Yolande Lindsay MD [facility] CPT-60011 Level 3 Est. Patient 20:55:40 CDT Yolande Lindsay MD [facility] CPT-00977 Level 3 Est. Patient 12:42:38 SUCTION PLATE ROLLER HAND Yolande Lindsay MD [facility] CPT-99835 Level 3 Est. Patient 11:54:49 SUCTION PLATE ROLLER HAND Des Hines MD [facility] CPT-44234 Level 3 Est. Patient 17:06:38 CDT Dewayne PERAZA [facility] Procedures Code Procedure Name Date Entry Date Standard Description CPT-74890 Abd single AP View - XRAY USE ONLY 11:16:17 CDT CPT-12037 T spine AP/ Lat - XRAY USE ONLY 09:34:21 CDT CPT-04643 Chest 2V Frontal and Lat - XRAY USE ONLY 10:48:51 CDT CPT-80317 LS spine comp w obliq 13:28:00 SUCTION PLATE ROLLER HAND CPT-J1040 Depo Medrol 80 mg (Methyl Prednisolone Acetate) 10:51: 28 SUCTION PLATE ROLLER HAND CPT-J1100 Decadron 8mg (Dexamethasone) 10:51:28 SUCTION PLATE ROLLER HAND CPT-53185 Abx/Therapy Injection 10:51:28 SUCTION PLATE ROLLER HAND CPT-J1100 Decadron 8mg (Dexamethasone) 21:02:30 SUCTION PLATE ROLLER HAND CPT-J1040 Depo Medrol 80 mg (Methyl Prednisolone Acetate) 21:02: 30 SUCTION PLATE ROLLER HAND [id number] Event Monitor - MC Transmission 09:12:32 CDT 08/06 [id number] Event Monitor - MC review and interp 09:12:32 CDT [id number] Event Monitor - MC recording 09:12:32 CDT CPT-07761 EKG Trac and Interp 16:50:22 CDT CPT-J1030 Depo Medrol 40 mg (Methyl Prednisolone Acetate) 17:05: 54 CDT CPT-J1100 Decadron 4mg (Dexamethasone) 17:05:54 CDT CPT-98895 Abx/Therapy Injection 17:05:54 CDT CPT-J1100 Decadron 4mg (Dexamethasone) 16:55:28 CDT CPT-J1030 Depo Medrol 40 mg (Methyl Prednisolone Acetate) 16:55: 28 CDT CPT-26711 Ankle Complete - Min 3V 15:58:50 CDT CPT-97048 Knee 3V 15:58:50 CDT CPT-18819 Hip comp min 2V 15:58:50 CDT CPT-J2270 Morphine Sulfate 10 mg 14:25:44 SUCTION PLATE ROLLER HAND CPT-J2550 Phenergan 12.5 mg (Promethazine) 14:25:44 SUCTION PLATE ROLLER HAND CPT-83960 Abx/Therapy Injection 14:25:44 SUCTION PLATE ROLLER HAND CPT-J2550 Phenergan 12.5 mg (Promethazine) 14:08:03 SUCTION PLATE ROLLER HAND CPT-J2270 Morphine Sulfate 10 mg 14:08:03 SUCTION PLATE ROLLER HAND CPT-59872 Bladder Scan 15:00:38 CDT CPT-TCMM Transitional Care Mgmt-Moderate 09:52:22 CDT CPT-J1030 Depo Medrol 40 mg (Methyl Prednisolone Acetate) 10:55: 18 CDT CPT-J1100 Decadron 4mg (Dexamethasone) 10:55:18 CDT CPT-27211 Abx/Therapy Injection 10:55:18 CDT CPT-J1030 Depo Medrol 40 mg (Methyl Prednisolone Acetate) 10:22: 32 CDT CPT-J1100 Decadron 4mg (Dexamethasone) 10:22:32 CDT CPT-14149 Postop F/U Visit 14:37:13 CDT CPT-84928 Ankle Complete - Min 3V 17:11:58 CDT CPT-35606 Foot comp min 3V 17:11:58 CDT CPT-05747 Bladder Scan 09:56:58 CDT CPT-27877 Postop F/U Visit 09:56:58 CDT CPT-41982 Cystoscopy 09:02:42 CDT CPT-10359 Bladder Scan 09:02:42 CDT CPT-81954 Abd single AP View 16:00:35 CDT CPT-48016 Administration single or combination vaccine inc oral 10 :15:43 CDT CPT-09135 Influenza split virus > age 3 10:15:43 CDT CPT-22199 Nail Avulsion 09:24:57 CDT CPT-OV Office Visit 11:15:41 CDT CPT-77247 Abx/Therapy Injection 10:51:30 CDT CPT-J3301 Kenalog 40 mg (Triamcinolone Acetonide) 10:25:12 CDT CPT-J1100 Decadron 4mg (Dexamethasone) 10:25:12 CDT CPT-97277 Anoscopy diagnostic 10:36:12 CDT CPT-OV Office Visit 15:34:31 CDT CPT-19744 Abx/Therapy Injection 08:21:15 SUCTION PLATE ROLLER HAND CPT-J1885 Toradol 60 mg (Ketorolac) 10:46:35 SUCTION PLATE ROLLER HAND CPT-OV Office Visit 19:51:16 SUCTION PLATE ROLLER HAND CPT-69687 Spec Collection and Handling Fee 14:34:18 SUCTION PLATE ROLLER HAND CPT-PV Prev. Care Visit 14:19:18 SUCTION PLATE ROLLER HAND CPT-74234 Postop F/U Visit 14:47:51 SUCTION PLATE ROLLER HAND CPT-24481 Postop F/U Visit 15:15:14 SUCTION PLATE ROLLER HAND CPT-11023 Postop F/U Visit 14:41:43 CDT CPT-77074 Postop F/U Visit 15:47:46 CDT CPT-OV Office Visit 15:27:23 CDT CPT-OV Office Visit 17:20:34 CDT CPT-81228 Abx/Therapy Injection 15:05:57 CDT CPT-J1100 Decadron 8mg (Dexamethasone) 14:44:57 CDT CPT-J1040 Depo Medrol 80 mg (Methyl Prednisolone Acetate) 14:44: 57 CDT CPT-JTINJ Joint Injection 10:17:37 CDT CPT-01437 Administration 2+ single or combination vaccines inc oral 13:01:46 SUCTION PLATE ROLLER HAND CPT-51113 Administration single or combination vaccine inc oral 13 :01:46 SUCTION PLATE ROLLER HAND CPT-19650 Pneumovax 13:01:46 SUCTION PLATE ROLLER HAND CPT-98489 Influenza split virus > age 3 13:01:46 SUCTION PLATE ROLLER HAND CPT-08735 Administration single or combination vaccine inc oral 08 :56:49 CDT CPT-50162 Tdap 08:56:49 CDT
--- OUTSIDE RECORDS SUMMARY | 2017-03-21 23:53 | XMS REPORT ---
Author Author [facility] Medical Staff Organization [facility] Address [address] [id number] Phone [phone] Care Team Providers Care Marketing Specialist Name Role Phone LENKA HUTSON, EUNICE PP [phone] Summary purpose TRANSITION OF CARE AUTO GENERATION [...] tests and/or laboratory data RESULTS Radiology Results [id number] CT ABD/PELV WO CON PACs Image DATE OF EXAM: Sep 11 2014 [id number] ABD/PELV WO CONTRAST : RADIOLOGY REPORT DATE OF SERVICE: 09/11/14 HISTORY: Patient has benign essential hypertension, chronic kidney disease, and evaluation of lesion in the upper right kidney seen on previous studies including exam 03/01/2014. CT ABDOMEN AND PELVIS WITHOUT [id number] HOURS Images were obtained from diaphragms to [...] 09/11/2014 13:56:00 / 09/11/2014 14:11:58 cc:Dr. Festus Bermudez This document has been electronically Signed by: On: DATE OF EXAM: Sep 11 2014 [id number] ABD/PELV WO CONTRAST : RADIOLOGY REPORT DATE OF SERVICE: 09/11/14 HISTORY: Patient has benign essential hypertension, chronic kidney disease, and evaluation of lesion in the upper right kidney seen on previous studies including exam 03/01/2014. CT ABDOMEN AND PELVIS WITHOUT [id number] HOURS Images were obtained from diaphragms to [...] 09/11/2014 13:56:00 / 09/11/2014 14:11:58 cc:Dr. Festus Bermudez This document has been electronically Signed by: CHRIS LAFLEUR DO On: Sep 11 20143:40P Result Amended on 2014-09-11 at 15:40:05. Previous status was [place]. History of procedures No procedures recorded for [...]
--- OUTSIDE RECORDS SUMMARY | 2017-03-21 23:56 | XMS REPORT | Clinical Summary ---
Author Author Admin, MARGRET Organization [place] Address Unknown Phone Unavailable Allergies, Adverse Reactions, Alerts Allergy Name Reaction Description Start Date Severity Status Provider VALENTIN Critical Active Rodrigo Montemayorl ATHLETIC DIRECTOR CHLORHEXIDINE GLUCONATE tongue and gums swollen Critical Active Hoa Kabaford RMA NORFLEX Rash Critical Active Silvestrellina Frazell ATHLETIC DIRECTOR TRAZODONE HCL sees things Critical Active [...] MD Muscle spasm, back ICD-724.8 Inactive Yolande Lindsya MD PhD Sinusitis, acute ICD-461.9 Inactive Yolande [...] 1 po qd PRN Allergies CETIRIZINE HCL 67424206703 Active Gab Padron MD Active CLARITIN 10 MG TAB 1 tablet by mouth daily as needed for allergies LORATADINE 25310672816 No Longer Active Gab Padron MD Active PREDNISONE 20 MG TAB take 3 tabs daily for 3 days, 2 tabs daily for 3 days, 1 tab daily for 3 days, 1/2 tab daily for 3 days PREDNISONE 45041690944 No Longer Active Tisha Lambert APRN Active TRAMADOL HCL 50 MG TABS 1 tab po every 6 hrs prn pain TRAMADOL HCL 08897164134 Active Gab Padron MD Active PREDNISONE 20 MG TAB 2 tabs daily for 3 days, 1 tab daily for 3 days, 1/2 tab daily for 2 days PREDNISONE 44477499528 No Longer Active Gab Padron MD Active ZOFRAN ODT 4 MG TBDP 1 po q6hr PRN Nausea ONDANSETRON 03826684009 Active Gab Padron MD Active IBUPROFEN 600 MG TAB 1 tablet by mouth every 6 hours for 7 days, then 1 tablet every 6 hours as needed. Take with food IBUPROFEN 65117871333 Active Rodrigo Sarah APRN Active BACTRIM DS 800-160 MG TAB 1 tab by mouth twice daily TRIMETHOPRIM-SULFAMETHOXAZOLE 66828657916 No Longer Active Gab Padron MD Active ADVAIR DISKUS 250-50 MCG/DOSE AEPB 1 puff BID FLUTICASONE- SALMETEROL 63087417297 Active Rodrigo Sarah APRN Active LEVOTHYROXINE SODIUM 75 MCG TABS Take 1 tab daily LEVOTHYROXINE SODIUM 67220871589 No Longer Active Mariana FLEMING Active SYNTHROID 88 MCG ORAL TABS Take one by mouth daily LEVOTHYROXINE SODIUM 96496131314 Active Gab Padron MD Active CHERATUSSIN AC 100-10 MG/5ML SYRP 1 tsp by mouth every 4 hours as needed for cough GUAIFENESIN-CODEINE 93715675358 No Longer Active Gab Padron MD Active POLYTRIM 80647-7.1 UNIT/ML-% SOLN 1 gtt to affected eye q3h x 7 days POLYMYXIN B-TRIMETHOPRIM 18073345109 No Longer Active Gab Padron MD Active FLUTICASONE PROPIONATE 50 MCG/ACT SUSP 1 to 2 sprays each nostril daily 04/21 FLUTICASONE PROPIONATE 15219811099 No Longer Active Gab Padron MD Active TRILEPTAL 600 MG TABS Take one 1 tablet in Am and 1 tablet at night OXCARBAZEPINE 41339290961 Active Gab Padron MD Active CEFDINIR 300 MG CAPS 1 po BID x 10 days CEFDINIR 76132821352 No Longer Active Rodrigo Sarah APRN Active CEFTIN 500 MG TAB 1 twice a day CEFUROXIME AXETIL 64191118916 No Longer Active Gab Padron MD Active AZITHROMYCIN 250 MG TABS 2 po qd x 1 day, then 1 po qd x 4 days AZITHROMYCIN 47369578303 No Longer Active Rodrigo Sarah APRN Active OXYCODONE HCL 5 MG ORAL CAPS 1 TAB PO Q HS OXYCODONE HCL 76238957152 No Longer Active Silvestrellnacho Sarah APRN Active NIASPAN 500 MG ORAL CR-TABS 1 pill nightly x 1 week, then 2 pills nightly x 1 week, then 3 pills nightly x 1 week, then 4 pills nightly NIACIN (ANTIHYPERLIPIDEMIC) 49415053636 No Longer Active Silvestrellnacho Sarah APRN Active NIACIN 500 MG TABS 1 pill by mouth nightly x 1 week, then 2 pills x 1 week, then 3 pills x 1 week, then 4 pills nightly - take after evening meal, with applesauce or an apple NIACIN 14295300747 No Longer Active Yolande Lindsay MD PhD Active FISH OIL 1000 MG CAPS 3 pills daily OMEGA-3 FATTY ACIDS 83560623211 Active Yolande Lindsay MD PhD Active TRIAMCINOLONE ACETONIDE 0.1 % CREA apply bid sparingly to rash TRIAMCINOLONE ACETONIDE 69786943966 Active Yolande Lindsay MD PhD Active FUROSEMIDE 20 MG TAB 1 tablet by mouth daily FUROSEMIDE 24641478910 Active Gab Padron MD Active LISINOPRIL 20 MG ORAL TABS 1 tab by mouth daily LISINOPRIL 33413384273 Active Gab Padron MD Active FUROSEMIDE 20 MG TABS 1 pill by mouth daily, for edema FUROSEMIDE 76785592098 No Longer Active Yolande Lindsay MD PhD Active ATORVASTATIN CALCIUM 10 MG TABS 1 pill by mouth daily, for cholesterol 09/06 ATORVASTATIN CALCIUM 72200091809 Active Gab Padron MD Active CALCIUM 600+D PLUS MINERALS 600-400 MG-UNIT ORAL CHEW 1 tab by mouth daily CALCIUM CARBONATE-VIT D-MIN 90155697687 No Longer Active Yolande Lindsay MD PhD Active CYCLOBENZAPRINE HCL 10 MG TABS 1 tablet by mouth three times daily as needed for muscle spasm/pain CYCLOBENZAPRINE HCL 95538707882 Active Yolande Lindsay MD PhD Active ONDANSETRON 4 MG TBDP 1 q4h PRN nausea ONDANSETRON 43318556452 Active Yolande Lindsay MD PhD Active ADULT ASPIRIN EC LOW STRENGTH 81 MG TBEC Take 1 tablet by mouth daily 2014 ASPIRIN 41905403059 No Longer Active Yolande Lindsay MD PhD Active ZOFRAN ODT 4 MG TBDP 1 pill dissolved by mouth every 4 hours if needed for nausea ONDANSETRON 19430572369 No Longer Active Yolande Lindsay MD PhD Active CEFTIN 500 MG TAB 1 twice a day CEFUROXIME AXETIL 79063802202 No Longer Active Yolande Lindsay MD PhD Active ALBUTEROL SULFATE 0.083 % NEBU SOLN one vial per nebulizer every 4-6 hours as needed ALBUTEROL SULFATE 29461424401 No Longer Active Alexis Ordaz MD Active DOXYCYCLINE HYCLATE 100 MG CAP 1 cap by mouth twice daily DOXYCYCLINE HYCLATE 89726486711 No Longer Active Yolande Lindsay MD PhD Active CYCLOBENZAPRINE HCL 10 MG TABS 1/2 - 1 tab by mouth three times daily if needed for spasms/pain CYCLOBENZAPRINE HCL 45700812908 No Longer Active Yolande Lindsay MD PhD Active AZITHROMYCIN 250 MG TABS 2 pills on day 1, then 1 pill daily x 4 days AZITHROMYCIN 80429390497 No Longer Active Yolande Lindsay MD PhD Active XOPENEX 1.25 MG/3ML NEBU 1 neb every 4 hours if needed for cough/congestion LEVALBUTEROL HCL 66855781338 No Longer Active Yolande Lindsay MD PhD Active DOXYCYCLINE HYCLATE 100 MG TAB 1 tab twice a day for 14 days 2013 DOXYCYCLINE HYCLATE 42586639459 No Longer Active Yolande Lindsay MD PhD Active PREVACID 30 MG CPDR Take 1 tablet by mouth daily-PRN LANSOPRAZOLE 49209312568 No Longer Active Yolande Lindsay MD PhD Active PA VITAMIN D-3 2000 UNIT CAPS 1 CAP PO DAILY CHOLECALCIFEROL 07444421054 No Longer Active Yolande Lindsay MD PhD Active CEFDINIR 300 MG CAPS by mouth twice a day CEFDINIR 80432747934 No Longer Active Gab Padron MD Active TOPAMAX 50 MG TABS 1 PO twice daily TOPIRAMATE 93405485838 Active Yolande Lindsay MD PhD Active AZITHROMYCIN 250 MG TABS 2 po qd x 1 day, then 1 po qd x 4 days AZITHROMYCIN 56441148384 No Longer Active Yolande Lindsay MD PhD Active DICLOFENAC SODIUM 75 MG TBEC 1 tablet by q 12 hours PRN headaches DICLOFENAC SODIUM 26849192422 No Longer Active Yolande Lindsay MD PhD Active FLONASE 50 MCG/ACT SUSP 1 spray each nostril am and hs FLUTICASONE PROPIONATE 12953746243 No Longer Active Todd Callaway MD Active ANUSOL-HC 25 MG SUPPOSITORY 1 rectally twice a day as needed for hemorrhoids HYDROCORTISONE JAYDEN (RECTAL) 94573640889 No Longer Active Yolande Lindsay MD PhD Active ANUSOL-HC 25 MG SUPPOSITORY 1 suppository rectally each evening as needed for anal fissure HYDROCORTISONE JAYDEN (RECTAL) 62674077395 No Longer Active LONNIE Iglesias Active VALIUM 5 MG TAB 1 po 30 minutes prior to your MRI DIAZEPAM 34395315853 No Longer Active LONNIE Iglesias Active METHOCARBAMOL 750 MG TABS 1 PO QID PRN METHOCARBAMOL 90540225037 No Longer Active Daphne Wetzel APRN Active NITROSTAT 0.4 MG SUBL as directed NITROGLYCERIN 96615718929 No Longer Active Rodrigo Sarah APRN Active ROBAXIN-750 750 MG TABS 2 four times a day for 3 days as needed for muscle spasm, then 1 four times a day as needed METHOCARBAMOL 52960867193 No Longer Active Rodrigo Sarah APRN Active HYDROCODONE-ACETAMINOPHEN 5-325 MG TABS 1 q 4-6 hrs prn HYDROCODONE-ACETAMINOPHEN 19632115449 No Longer Active Rodrigo Sarah APRN Active VERAPAMIL HCL CR 180 MG CR-TABS TAKE 1 TAB DAILY VERAPAMIL HCL 60307774140 No Longer Active Yolande Lindsay MD PhD Active BACTRIM DS 800-160 MG TAB 1 tab by mouth twice daily TRIMETHOPRIM-SULFAMETHOXAZOLE 98552099317 No Longer Active Yolande Lindsay MD PhD Active NEXIUM 40 MG PACK 1 by mouth daily ESOMEPRAZOLE MAGNESIUM 91984860511 No Longer Active Des Hines MD Active EPIPEN 2-CHARLETTE 0.3 MG/0.3ML OMARI as need for allergic reaction EPINEPHRINE 02948110774 Active Yolande Lindsay MD PhD Active NEXIUM 40 MG CPDR 1 PO Q D DAY ESOMEPRAZOLE MAGNESIUM 75504170562 No Longer Active Sadia Perry RN Active NEXIUM 40 MG PACK 1 by mouth daily NEXIUM 40 MG PACK ESOMEPRAZOLE MAGNESIUM Inactive VERAPAMIL HCL CR 180 MG CR-TABS TAKE 1 TAB DAILY VERAPAMIL HCL CR 180 MG CR-TABS VERAPAMIL HCL Inactive HYDROCODONE-ACETAMINOPHEN 5-325 MG TABS 1 q 4-6 hrs prn HYDROCODONE-ACETAMINOPHEN 5-325 MG TABS 812963 HYDROCODONE-ACETAMINOPHEN Inactive ROBAXIN-750 750 MG TABS 2 four times a day for 3 days as needed for muscle spasm, then 1 four times a day as needed ROBAXIN-750 750 MG TABS 769345 METHOCARBAMOL Inactive NITROSTAT 0.4 MG SUBL as directed NITROSTAT 0.4 MG SUBL 537444 NITROGLYCERIN Inactive METHOCARBAMOL 750 MG TABS 1 PO QID PRN METHOCARBAMOL 750 MG TABS 198042 METHOCARBAMOL Inactive VALIUM 5 MG TAB 1 po 30 minutes prior to your MRI VALIUM 5 MG TAB 177254 DIAZEPAM Inactive ANUSOL-HC 25 MG SUPPOSITORY 1 suppository rectally each evening as needed for anal fissure ANUSOL-HC 25 MG SUPPOSITORY 9077775 HYDROCORTISONE JAYDEN (RECTAL) Inactive ANUSOL-HC 25 MG SUPPOSITORY 1 rectally twice a day as needed for hemorrhoids ANUSOL-HC 25 MG SUPPOSITORY 3389751 HYDROCORTISONE JAYDEN (RECTAL) Inactive FLONASE 50 MCG/ACT SUSP 1 spray each nostril am and hs FLONASE 50 MCG/ACT SUSP 5704421 FLUTICASONE PROPIONATE Inactive DICLOFENAC SODIUM 75 MG TBEC 1 tablet by q 12 hours PRN headaches DICLOFENAC SODIUM 75 MG TBEC 868768 DICLOFENAC SODIUM Inactive PA VITAMIN D-3 2000 UNIT CAPS 1 CAP PO DAILY PA VITAMIN D-3 2000 UNIT CAPS CHOLECALCIFEROL Inactive PREVACID 30 MG CPDR Take 1 tablet by mouth daily-PRN PREVACID 30 MG CPDR 653936 LANSOPRAZOLE Inactive DOXYCYCLINE HYCLATE 100 MG TAB 1 tab twice a day for 14 days 2013 DOXYCYCLINE HYCLATE 100 MG TAB 6132292 DOXYCYCLINE HYCLATE Inactive XOPENEX 1.25 MG/3ML NEBU 1 neb every 4 hours if needed for cough/congestion XOPENEX 1.25 MG/3ML NEBU 010807 LEVALBUTEROL HCL Inactive CYCLOBENZAPRINE HCL 10 MG TABS 1/2 - 1 tab by mouth three times daily if needed for spasms/pain CYCLOBENZAPRINE HCL 10 MG TABS 111598 CYCLOBENZAPRINE HCL Inactive ALBUTEROL SULFATE 0.083 % NEBU SOLN one vial per nebulizer every 4-6 hours as needed ALBUTEROL SULFATE 0.083 % NEBU SOLN 030205 ALBUTEROL SULFATE Inactive CEFTIN 500 MG TAB 1 twice a day CEFTIN 500 MG TAB 390208 CEFUROXIME AXETIL Inactive ZOFRAN ODT 4 MG TBDP 1 pill dissolved by mouth every 4 hours if needed for nausea ZOFRAN ODT 4 MG TBDP 957687 ONDANSETRON Inactive ADULT ASPIRIN EC LOW STRENGTH 81 MG TBEC Take 1 tablet by mouth daily 2014 ADULT ASPIRIN EC LOW STRENGTH 81 MG TBEC 938494 ASPIRIN Inactive CALCIUM 600+D PLUS MINERALS 600-400 [...] or an apple NIACIN 500 MG TABS 161135 NIACIN Inactive NIASPAN 500 MG ORAL CR-TABS 1 pill nightly x 1 week, then 2 pills nightly x 1 week, then 3 pills nightly x 1 week, then 4 pills nightly NIASPAN 500 MG ORAL CR-TABS NIACIN (ANTIHYPERLIPIDEMIC) Inactive OXYCODONE HCL 5 MG ORAL CAPS 1 TAB PO Q HS OXYCODONE HCL 5 MG ORAL CAPS 8979485 OXYCODONE HCL Inactive FLUTICASONE PROPIONATE 50 MCG/ACT SUSP 1 to 2 sprays each nostril daily 04/21 FLUTICASONE PROPIONATE 50 MCG/ACT SUSP 1251557 FLUTICASONE PROPIONATE Inactive POLYTRIM 64298-1.1 UNIT/ML-% SOLN 1 gtt to affected eye q3h x 7 days POLYTRIM 57544-2.1 UNIT/ML-% SOLN 408747 POLYMYXIN B- TRIMETHOPRIM Inactive CHERATUSSIN AC 100-10 MG/5ML SYRP 1 tsp by mouth every 4 hours as needed for cough CHERATUSSIN AC 100-10 MG/5ML SYRP 981324 GUAIFENESIN-CODEINE Inactive LEVOTHYROXINE SODIUM 75 MCG TABS Take 1 tab daily LEVOTHYROXINE SODIUM 75 MCG TABS 491207 LEVOTHYROXINE SODIUM Inactive CLARITIN 10 MG TAB 1 tablet by mouth daily as needed for allergies CLARITIN 10 MG TAB 787097 LORATADINE Inactive BACTRIM DS 800-160 MG TAB 1 tab by mouth twice daily BACTRIM DS 800-160 MG TAB 991371 TRIMETHOPRIM-SULFAMETHOXAZOLE Inactive AZITHROMYCIN 250 MG TABS 2 po qd x 1 day, then 1 po qd x 4 days AZITHROMYCIN 250 MG TABS 0109699 AZITHROMYCIN Inactive CEFDINIR 300 MG CAPS by mouth twice a day CEFDINIR 300 MG CAPS 749570 CEFDINIR Inactive AZITHROMYCIN 250 MG TABS 2 pills on day 1, then 1 pill daily x 4 days AZITHROMYCIN 250 MG TABS 2053833 AZITHROMYCIN Inactive DOXYCYCLINE HYCLATE 100 MG CAP 1 cap by mouth twice daily DOXYCYCLINE HYCLATE 100 MG CAP 9482980 DOXYCYCLINE HYCLATE Inactive FUROSEMIDE 20 MG TABS 1 pill by mouth daily, for edema FUROSEMIDE 20 MG TABS 967497 FUROSEMIDE Inactive AZITHROMYCIN 250 MG TABS 2 po qd x 1 day, then 1 po qd x 4 days AZITHROMYCIN 250 MG TABS 8420653 AZITHROMYCIN Inactive CEFTIN 500 MG TAB 1 twice a day CEFTIN 500 MG TAB 377146 CEFUROXIME AXETIL Inactive CEFDINIR 300 MG CAPS 1 po BID x 10 days CEFDINIR 300 MG CAPS 318230 CEFDINIR Inactive BACTRIM DS 800-160 MG TAB 1 tab by mouth twice daily BACTRIM DS 800-160 MG TAB 545571 TRIMETHOPRIM-SULFAMETHOXAZOLE Inactive PREDNISONE 20 MG TAB 2 tabs daily for 3 days, 1 tab daily for 3 days, 1/2 tab daily for 2 days PREDNISONE 20 MG TAB 946141 PREDNISONE Inactive PREDNISONE 20 MG TAB take 3 tabs daily for 3 days, 2 tabs daily for 3 days, 1 tab daily for 3 days, 1/2 tab daily for 3 days PREDNISONE 20 MG TAB 054749 PREDNISONE Inactive Immunizations Vaccine Administration Date Value Standard Description Seasonal influenza vaccine, injectable, containing preservative, for > 3 years old (Afluria, FluLaval, Fluzone, Fluvirin, Fluarix, Agriflu(>=18 yo)) Fluzone (>3 yrs.) [DQD899] Influenza, seasonal, injectable influenza immunization (Flu Vax) has been administered Influenza - Unspecified Formulation [CVX88] influenza virus vaccine, unspecified formulation pneumococcal immunization administered Pneumovax 23 [CVX33] pneumococcal polysaccharide vaccine, 23 valent Seasonal influenza vaccine, injectable, containing preservative, for > 3 years old (Afluria, FluLaval, Fluzone, Fluvirin, Fluarix, Agriflu(>=18 yo)) Fluzone (>3 yrs.) [EDN862] Influenza, seasonal, injectable dT (Diphtheria and Tetanus) booster given given Td(adult) unspecified formulation Boostrix (Tetanus toxoid, reduced diphtheria toxoid and acellular pertussis vaccine, adsorbed), booster Boostrix [BFR677] tetanus toxoid, reduced diphtheria toxoid, and acellular [...] pressure, diastolic - 8462-4 70 mm[Hg] BP ewldon blood pressure, systolic - 8480-6 138 mm[Hg] [...] Panel - Chemistry sodium, serum 142 mmol/L 698-624 6232/06/30 potassium, serum 4.4 mmol/L 3.5-5.2 chloride, serum 108 mmol/L 98-107 carbon dioxide, venous blood 25.1 mmol/L 21.0-32.0 blood glucose 82 mg/dL 65-110 calcium, serum 9.1 mg/dL 8.5-10.1 urea nitrogen, blood 18 mg/dL 7-18 creatinine, serum 1.31 mg/dL 0.55-1.30 Lab Report: Lipid Panel, HEPATIC PANEL - Chemistry cholesterol, serum 166 mg/dL [phone]/12/06 triglyceride, serum, fasting 86 mg/dL 30-200 HDL [...] dipstick Negative Negative sodium, serum 142 mmol/L 956-393 0667/07/18 carbon dioxide, venous blood 27.8 mmol/L 21.0-32.0 [...] negative Encounters Code Encounter Date Provider Facility CPT-99934 Level 4 Est. Patient 13:18:33 CDT Gab Padron MD [facility] CPT-92504 Level 3 Est. Patient 15:20:50 CDT Jared [address] MD [facility] CPT-73056 Level 3 Est. Patient 17:43:55 [employer] Gab Padron MD [facility] CPT-19113 Level 3 Est. Patient 17:07:49 [employer] Jared Og MD [facility] CPT-38309 Level 4 Est. Patient 19:55:18 [employer] Jared Og MD [facility] CPT-96820 Level 3 Est. Patient 20:13:34 [employer] Jared Og MD [facility] CPT-05175 Level 4 Est. Patient 16:31:27 CDT Gab Padron MD [facility] CPT-24958 Level 2 Est. Patient 12:23:38 CDT Jared Og MD [facility] CPT-53763 Level 3 Est. Patient 11:01:51 CDT Gab Padron MD [facility]-20771 Level 3 Est. Patient 15:27:02 CDT Jared Og MD [facility] CPT-90547 Level 4 Est. Patient 09:25:27 CDT Gab Padron MD [facility]-28664 Level 3 Est. Patient 10:29:41 CDT Rodrigo Sarah [facility]-23981 Level 4 Est. Patient 17:51:05 CDT Gab Padron MD [facility]-44237 Level 3 Est. Patient 14:18:08 CDT Gab Padron MD [facility]-60667 Level 4 Est. Patient 10:18:54 CDT Gab Padron MD [facility]-47128 Level 3 Est. Patient 11:30:07 CDT Rodrigo Sarah [facility] CPT-24575 Level 4 Est. Patient 21:02:30 [employer] Gab Padron MD [facility]-85830 Level 3 Est. Patient 11:02:19 [employer] Gab Padron MD [facility] CPT-92390 Level 4 Est. Patient 22:24:31 [employer] Gab Padron MD [facility]-93987 Level 3 Est. Patient 18:33:46 [employer] Gab Padron MD [facility] CPT-84772 Level 3 Est. Patient 16:19:11 CDT Yolande Lindsay MD [facility]-31901 Level 3 Est. Patient 18:59:14 CDT Yolande Lindsay MD PhD [facility] CPT-91416 Level 4 Est. Patient 21:29:26 CDT Yolande Lindsay MD [facility]18404 Level 3 Est. Patient 07:37:45 CDT Yolande Lindsay MD [facility]-69232 Level 3 Est. Patient 17:03:46 CDT Yolande Lindsay MD [facility] CPT-77429 Level 4 Est. Patient 20:02:13 [employer] Yolande Lindsay MD [facility] CPT-58862 Level 3 Est. Patient 16:02:07 [employer] Alexis Ordaz MD [facility] CPT-25932 Level 3 Est. Patient 12:41:24 [employer] Yolande Lindsay MD [facility]-73763 Level 3 Est. Patient 15:41:20 [employer] Yolande Lindsay MD [facility]-17268 Level 3 Est. Patient 13:20:02 [employer] Yolande Lindsay MD [facility]-76934 Level 3 Est. Patient 15:00:38 CDT Jared Og MD [facility] CPT-34804 Level 3 Est. Patient 10:22:32 CDT Yolande Lindsay MD [facility] CPT-43425 Level 3 Est. Patient 17:12:58 CDT Yolande Lindsay MD [facility] CPT-47927 Level 4 Est. Patient 13:30:58 CDT Yolande Lindsay MD [facility] CPT-07256 Level 4 New Patient 09:02:42 CDT Jared Og MD [facility]-25380 Level 3 Est. Patient 08:19:07 CDT Yolande Lindsay MD [facility] CPT-56948 Level 3 Est. Patient 12:00:13 [employer] Gab Padron MD [facility]-46500 Level 3 Est. Patient 16:15:23 [employer] Yolande Lindsay MD [facility] CPT-63140 Level 2 Est. Patient 19:47:15 CDT Yolande Lindsay MD [facility]-37159 Level 3 Est. Patient 21:38:31 CDT Yolande Lindsay MD [facility]-99126 Level 3 Est. Patient 10:25:12 CDT Adiel PERAZA [facility]-04438 Level 4 Est. Patient 10:51:58 CDT Yolande Lindsay MD [facility]-92452 Level 3 Est. Patient 14:04:55 [employer] Rodrigo Sarah [facility] CPT-83186 Level 3 Est. Patient 10:46:35 [employer] Rodrigo Sarah [facility]-37459 Level 3 Est. Patient 14:24:37 [employer] Yolande Linsday MD [facility]-67344 Level 3 Est. Patient 17:41:58 [employer] Yolande Lindsay MD [facility]-30178 Level 2 Est. Patient 22:01:41 [employer] Rodrigo Sarah [facility] CPT-12781 Level 2 Est. Patient 22:01:11 [employer] Rodrigo Sarah [facility] CPT-46386 Level 3 Est. Patient 10:12:29 [employer] Rodrigo Sarah [facility] CPT-89046 Level 3 Est. Patient 11:05:44 CDT Aelxis Ordaz MD [facility] CPT-54985 Level 3 Est. Patient 14:57:20 CDT Yolande Lindsay MD [facility]-78649 Level 3 Est. Patient 14:40:57 CDT Yolande Lindsay MD [facility]-71190 Level 3 Est. Patient 20:55:40 CDT Yolande Lindsay MD [facility]-87601 Level 3 Est. Patient 12:42:38 [employer] Yolande Lindsay MD PhD [facility] CPT-56834 Level 3 Est. Patient 11:54:49 [employer] Des Hines MD [facility] CPT-77728 Level 3 Est. Patient 17:06:38 CDT Dewayne PERAZA [facility] Procedures Code Procedure Name Date Entry Date Standard Description CPT-J2930 Solu Medrol 125 mg (Methyl Prednisolone Sodium Succinate) 13:19:02 CDT CPT-35658 Abx/Therapy Injection 13:19:02 CDT CPT-J2930 Solu Medrol 125 mg (Methyl Prednisolone Sodium Succinate) 13:05:03 CDT CPT-16895 Hip, complete, 2-3 views - XRAY USE ONLY 17:19:04 [employer] CPT-91227 Venipuncture Draw Fee 08:37:59 [employer] CPT-40585 Liver Profile - LAB USE ONLY 08:37:59 [employer] CPT-21598 Lipid - LAB USE ONLY 08:37:58 [employer] CPT-00043 First Vx - Ix admin via ID IM or jet injects without counseling by physician 11:52:31 CDT CPT-56134 Fluzone Preservative Free Intramuscular Suspension 11:52 :31 CDT CPT-68897 Foot, left, comp min 3V - XRAY USE ONLY 09:24:54 CDT CPT-21601 Abd single AP View - XRAY USE ONLY 11:16:17 CDT CPT-26746 T spine AP/ Lat - XRAY USE ONLY 09:34:21 CDT CPT-71591 Chest 2V Frontal and Lat - XRAY USE ONLY 10:48:51 CDT CPT-46804 LS spine comp w obliq 13:28:00 [employer] CPT-J1040 Depo Medrol 80 mg (Methyl Prednisolone Acetate) 10:51: 28 [employer] CPT-J1100 Decadron 8mg (Dexamethasone) 10:51:28 [employer] CPT-46607 Abx/Therapy Injection 10:51:28 [employer] CPT-J1100 Decadron 8mg (Dexamethasone) 21:02:30 [employer] CPT-J1040 Depo Medrol 80 mg (Methyl Prednisolone Acetate) 21:02: 30 [employer] [id number] Event Monitor - MC Transmission 09:12:32 CDT 08/06 [id number] Event Monitor - MC review and interp 09:12:32 CDT [id number] Event Monitor - MC recording 09:12:32 CDT CPT-13031 EKG Trac and Interp 16:50:22 CDT CPT-J1030 Depo Medrol 40 mg (Methyl Prednisolone Acetate) 17:05: 54 CDT CPT-J1100 Decadron 4mg (Dexamethasone) 17:05:54 CDT CPT-41125 Abx/Therapy Injection 17:05:54 CDT CPT-J1100 Decadron 4mg (Dexamethasone) 16:55:28 CDT CPT-J1030 Depo Medrol 40 mg (Methyl Prednisolone Acetate) 16:55: 28 CDT CPT-01265 Ankle Complete - Min 3V 15:58:50 CDT CPT-66146 Knee 3V 15:58:50 CDT CPT-48858 Hip comp min 2V 15:58:50 CDT CPT-J2270 Morphine Sulfate 10 mg 14:25:44 [employer] CPT-J2550 Phenergan 12.5 mg (Promethazine) 14:25:44 [employer] CPT-48019 Abx/Therapy Injection 14:25:44 [employer] CPT-J2550 Phenergan 12.5 mg (Promethazine) 14:08:03 [employer] CPT-J2270 Morphine Sulfate 10 mg 14:08:03 [employer] CPT-99653 Bladder Scan 15:00:38 CDT CPT-TCMM Transitional Care Mgmt-Moderate 09:52:22 CDT CPT-J1030 Depo Medrol 40 mg (Methyl Prednisolone Acetate) 10:55: 18 CDT CPT-J1100 Decadron 4mg (Dexamethasone) 10:55:18 CDT CPT-90345 Abx/Therapy Injection 10:55:18 CDT CPT-J1030 Depo Medrol 40 mg (Methyl Prednisolone Acetate) 10:22: 32 CDT CPT-J1100 Decadron 4mg (Dexamethasone) 10:22:32 CDT CPT-82591 Postop F/U Visit 14:37:13 CDT CPT-31876 Ankle Complete - Min 3V 17:11:58 CDT CPT-15019 Foot comp min 3V 17:11:58 CDT CPT-18919 Bladder Scan 09:56:58 CDT CPT-47270 Postop F/U Visit 09:56:58 CDT CPT-67799 Cystoscopy 09:02:42 CDT CPT-05334 Bladder Scan 09:02:42 CDT CPT-96956 Abd single AP View 16:00:35 CDT CPT-76961 Administration single or combination vaccine inc oral 10 :15:43 CDT CPT-46915 Influenza split virus > age 3 10:15:43 CDT CPT-55730 Nail Avulsion 09:24:57 CDT CPT-OV Office Visit 11:15:41 CDT CPT-44290 Abx/Therapy Injection 10:51:30 CDT CPT-J3301 Kenalog 40 mg (Triamcinolone Acetonide) 10:25:12 CDT CPT-J1100 Decadron 4mg (Dexamethasone) 10:25:12 CDT CPT-04954 Anoscopy diagnostic 10:36:12 CDT CPT-OV Office Visit 15:34:31 CDT CPT-44494 Abx/Therapy Injection 08:21:15 [employer] CPT-J1885 Toradol 60 mg (Ketorolac) 10:46:35 [employer] CPT-OV Office Visit 19:51:16 [employer] CPT-06603 Spec Collection and Handling Fee 14:34:18 [employer] CPT-PV Prev. Care Visit 14:19:18 [employer] CPT-01899 Postop F/U Visit 14:47:51 [employer] CPT-75059 Postop F/U Visit 15:15:14 [employer] CPT-46000 Postop F/U Visit 14:41:43 CDT CPT-52314 Postop F/U Visit 15:47:46 CDT CPT-OV Office Visit 15:27:23 CDT CPT-OV Office Visit 17:20:34 CDT CPT-69740 Abx/Therapy Injection 15:05:57 CDT CPT-J1100 Decadron 8mg (Dexamethasone) 14:44:57 CDT CPT-J1040 Depo Medrol 80 mg (Methyl Prednisolone Acetate) 14:44: 57 CDT CPT-JTINJ Joint Injection 10:17:37 CDT CPT-85833 Administration 2+ single or combination vaccines inc oral 13:01:46 [employer] CPT-00196 Administration single or combination vaccine inc oral 13 :01:46 [employer] CPT-89849 Pneumovax 13:01:46 [employer] CPT-67893 Influenza split virus > age 3 13:01:46 [employer] CPT-31666 Administration single or combination vaccine inc oral 08 :56:49 CDT CPT-69517 Tdap 08:56:49 CDT
--- OUTSIDE RECORDS SUMMARY | 2017-03-21 23:59 | XMS REPORT | Clinical Summary ---
Author Author Admin, MARGRET Organization [place] Address Unknown Phone Unavailable Allergies, Adverse Reactions, Alerts Allergy Name Reaction Description Start Date Severity Status Provider VALENTIN Critical Active Rodrigo Montemayorl POLITICAL ANALYST CHLORHEXIDINE GLUCONATE tongue and gums swollen Critical Active Hoa Kabaford RMA NORFLEX Rash Critical Active Rowenaina Farshadzell POLITICAL ANALYST TRAZODONE HCL sees things Critical Active [...] not elsewhere classified GERD 530.81 Resolved Todd Callwaay MD Esophageal reflux BACK PAIN 724.5 Resolved [...] of 412 Active Hoa Otto [facility] Old myocardial infarction Pelvic pain 789.09 Resolved [...] for up to 2 weeks TRIAMCINOLONE ACETONIDE 57744187602 Active Tisha Lambert APRN Active LISINOPRIL 40 MG TABS 1 tablet by mouth daily LISINOPRIL 31815794138 Active Tisha Lambert APRN Active IBUPROFEN 600 MG TAB 1 tablet by mouth every 6 hours for 7 days, then 1 tablet every 6 hours as needed. Take with food IBUPROFEN 86551536277 No Longer Active Tisha Lambert APRN Active PREDNISONE 20 MG TAB 1 tab twice daily for 3 day, then one daily for three days PREDNISONE 99540210385 No Longer Active Tisha Lambert APRN Active TRIAMCINOLONE ACETONIDE 0.1 % CREA apply bid sparingly to rash TRIAMCINOLONE ACETONIDE 25688765378 No Longer Active Gab Padron MD Active TRAMADOL HCL 50 MG TABS 1 tab po every 6 hrs prn pain TRAMADOL HCL 85278493054 No Longer Active Gab Padron MD Active BACTRIM DS 800-160 MG TAB 1 tab by mouth twice daily TRIMETHOPRIM-SULFAMETHOXAZOLE 89063552711 No Longer Active Tisha Lambert APRN Active ADVAIR DISKUS 250-50 MCG/DOSE AEPB 1 puff BID FLUTICASONE-SALMETEROL 36569072726 No Longer Active Todd Callaway MD Active ONDANSETRON 4 MG TBDP 1 q4h PRN nausea ONDANSETRON 43221258973 No Longer Active LONNIE Iglesias Active FISH OIL 1000 MG CAPS 3 pills daily OMEGA-3 FATTY ACIDS 02584792897 No Longer Active LONNIE Iglesias Active CETIRIZINE HCL 10 MG ORAL TABS 1 po qd PRN Allergies CETIRIZINE HCL 17844301215 Active Gab Padron MD Active CLARITIN 10 MG TAB 1 tablet by mouth daily as needed for allergies LORATADINE 62466974281 No Longer Active Gab Padron MD Active PREDNISONE 20 MG TAB take 3 tabs daily for 3 days, 2 tabs daily for 3 days, 1 tab daily for 3 days, 1/2 tab daily for 3 days PREDNISONE 11229069247 No Longer Active Tisha Lambert APRN Active PREDNISONE 20 MG TAB 2 tabs daily for 3 days, 1 tab daily for 3 days, 1/2 tab daily for 2 days PREDNISONE 22242700827 No Longer Active Gab Padron MD Active ZOFRAN ODT 4 MG TBDP 1 po q6hr PRN Nausea ONDANSETRON 03724770000 Active Gab Padron MD Active BACTRIM DS 800-160 MG TAB 1 tab by mouth twice daily TRIMETHOPRIM-SULFAMETHOXAZOLE 71911901394 No Longer Active Gab Padron MD Active LEVOTHYROXINE SODIUM 75 MCG TABS Take 1 tab daily LEVOTHYROXINE SODIUM 16548977489 No Longer Active Mariana FLEMING Active SYNTHROID 88 MCG ORAL TABS Take one by mouth daily LEVOTHYROXINE SODIUM 03937882263 Active Tisha Lambert APRN Active CHERATUSSIN AC 100-10 MG/5ML SYRP 1 tsp by mouth every 4 hours as needed for cough GUAIFENESIN-CODEINE 90077826724 No Longer Active Gab Padron MD Active POLYTRIM 69943-6.1 UNIT/ML-% SOLN 1 gtt to affected eye q3h x 7 days POLYMYXIN B-TRIMETHOPRIM 34959709739 No Longer Active Gab Padron MD Active FLUTICASONE PROPIONATE 50 MCG/ACT SUSP 1 to 2 sprays each nostril daily 04/21 FLUTICASONE PROPIONATE 87180442508 No Longer Active Gab Padron MD Active TRILEPTAL 600 MG TABS Take one 1 tablet in Am and 1 tablet at night OXCARBAZEPINE 67784404962 Active Gab Padron MD Active CEFDINIR 300 MG CAPS 1 po BID x 10 days CEFDINIR 46290060119 No Longer Active Rowenaina Tyrel GAUTAM Active CEFTIN 500 MG TAB 1 twice a day CEFUROXIME AXETIL 64560105733 No Longer Active Gab Padron MD Active AZITHROMYCIN 250 MG TABS 2 po qd x 1 day, then 1 po qd x 4 days AZITHROMYCIN 33638924248 No Longer Active Silvestrellnacho Sarah APRN Active OXYCODONE HCL 5 MG ORAL CAPS 1 TAB PO Q HS OXYCODONE HCL 28800924632 No Longer Active Jillina Frahossein GAUTAM Active NIASPAN 500 MG ORAL CR-TABS 1 pill nightly x 1 week, then 2 pills nightly x 1 week, then 3 pills nightly x 1 week, then 4 pills nightly NIACIN (ANTIHYPERLIPIDEMIC) 09238822157 No Longer Active Silvestrellina Tyrel GAUTAM Active NIACIN 500 MG TABS 1 pill by mouth nightly x 1 week, then 2 pills x 1 week, then 3 pills x 1 week, then 4 pills nightly - take after evening meal, with applesauce or an apple NIACIN 50417497919 No Longer Active Yolande Lindsay MD PhD Active FUROSEMIDE 20 MG TAB 1 tablet by mouth daily FUROSEMIDE 74971951693 Active Gab Padron MD Active FUROSEMIDE 20 MG TABS 1 pill by mouth daily, for edema FUROSEMIDE 02045095400 No Longer Active Yolande Lindsay MD PhD Active ATORVASTATIN CALCIUM 10 MG TABS 1 pill by mouth daily, for cholesterol 09/06 ATORVASTATIN CALCIUM 14310877769 Active Gab Padron MD Active CALCIUM 600+D PLUS MINERALS 600-400 MG-UNIT ORAL CHEW 1 tab by mouth daily CALCIUM CARBONATE-VIT D-MIN 11644850754 No Longer Active Yolande Lindsay MD PhD Active CYCLOBENZAPRINE HCL 10 MG TABS 1 tablet by mouth three times daily as needed for muscle spasm/pain CYCLOBENZAPRINE HCL 49309887288 Active Yolande Lindsay MD PhD Active ADULT ASPIRIN EC LOW STRENGTH 81 MG TBEC Take 1 tablet by mouth daily 2014 ASPIRIN 20085445056 No Longer Active Yolande Lindsay MD PhD Active ZOFRAN ODT 4 MG TBDP 1 pill dissolved by mouth every 4 hours if needed for nausea ONDANSETRON 47073785911 No Longer Active Yolande Lindsay MD PhD Active CEFTIN 500 MG TAB 1 twice a day CEFUROXIME AXETIL 80683465124 No Longer Active Yolande Lindsay MD PhD Active ALBUTEROL SULFATE 0.083 % NEBU SOLN one vial per nebulizer every 4-6 hours as needed ALBUTEROL SULFATE 55672671866 No Longer Active Alexis Ordaz MD Active DOXYCYCLINE HYCLATE 100 MG CAP 1 cap by mouth twice daily DOXYCYCLINE HYCLATE 26328634455 No Longer Active Yolande Lindsay MD PhD Active CYCLOBENZAPRINE HCL 10 MG TABS 1/2 - 1 tab by mouth three times daily if needed for spasms/pain CYCLOBENZAPRINE HCL 93585305972 No Longer Active Yolande Lindsay MD PhD Active AZITHROMYCIN 250 MG TABS 2 pills on day 1, then 1 pill daily x 4 days AZITHROMYCIN 12367951596 No Longer Active Yolande Lindsay MD PhD Active XOPENEX 1.25 MG/3ML NEBU 1 neb every 4 hours if needed for cough/congestion LEVALBUTEROL HCL 11784725727 No Longer Active Yolande Lindsay MD PhD Active DOXYCYCLINE HYCLATE 100 MG TAB 1 tab twice a day for 14 days 2013 DOXYCYCLINE HYCLATE 55718323327 No Longer Active Yolande Lindsay MD PhD Active PREVACID 30 MG CPDR Take 1 tablet by mouth daily-PRN LANSOPRAZOLE 01814918127 No Longer Active Yolande Lindsay MD PhD Active PA VITAMIN D-3 2000 UNIT CAPS 1 CAP PO DAILY CHOLECALCIFEROL 18127309592 No Longer Active Yolande Lindsay MD PhD Active CEFDINIR 300 MG CAPS by mouth twice a day CEFDINIR 67979686563 No Longer Active Gab Padron MD Active TOPAMAX 50 MG TABS 1 PO twice daily TOPIRAMATE 49719232532 Active Yolande Lindsay MD PhD Active AZITHROMYCIN 250 MG TABS 2 po qd x 1 day, then 1 po qd x 4 days AZITHROMYCIN 18955395207 No Longer Active Yolande Lindsay MD PhD Active DICLOFENAC SODIUM 75 MG TBEC 1 tablet by q 12 hours PRN headaches DICLOFENAC SODIUM 83357038611 No Longer Active Yolande Lindsay MD PhD Active FLONASE 50 MCG/ACT SUSP 1 spray each nostril am and hs FLUTICASONE PROPIONATE 04613171836 No Longer Active Todd Callaway MD Active ANUSOL-HC 25 MG SUPPOSITORY 1 rectally twice a day as needed for hemorrhoids HYDROCORTISONE JAYDEN (RECTAL) 99495989984 No Longer Active Yolande Lindsay MD PhD Active ANUSOL-HC 25 MG SUPPOSITORY 1 suppository rectally each evening as needed for anal fissure HYDROCORTISONE JAYDEN (RECTAL) 29073282092 No Longer Active LONNIE Iglesias Active VALIUM 5 MG TAB 1 po 30 minutes prior to your MRI DIAZEPAM 01800015171 No Longer Active BozenaEDELMIRA CollazoFeliciano Active METHOCARBAMOL 750 MG TABS 1 PO QID PRN METHOCARBAMOL 23925122099 No Longer Active Daphne Wetzel POLITICAL ANALYST Active NITROSTAT 0.4 MG SUBL as directed NITROGLYCERIN 49972788452 No Longer Active Silvestrellnacho Sarah POLITICAL ANALYST Active ROBAXIN-750 750 MG TABS 2 four times a day for 3 days as needed for muscle spasm, then 1 four times a day as needed METHOCARBAMOL 70116840775 No Longer Active Silvestrellnacho Sarah APRN Active HYDROCODONE-ACETAMINOPHEN 5-325 MG TABS 1 q 4-6 hrs prn HYDROCODONE-ACETAMINOPHEN 92989949177 No Longer Active Silvestrellina Tyrel ZAPATAN Active VERAPAMIL HCL CR 180 MG CR-TABS TAKE 1 TAB DAILY VERAPAMIL HCL 16978592418 No Longer Active Yolande Lindsay MD PhD Active BACTRIM DS 800-160 MG TAB 1 tab by mouth twice daily TRIMETHOPRIM-SULFAMETHOXAZOLE 69841823401 No Longer Active Yolande Lindsay MD PhD Active NEXIUM 40 MG PACK 1 by mouth daily ESOMEPRAZOLE MAGNESIUM 72106060429 No Longer Active Des Hines MD Active EPIPEN 2-CHARLETTE 0.3 MG/0.3ML OMARI as need for allergic reaction EPINEPHRINE 55566131733 Active Yolande Lindsay MD PhD Active NEXIUM 40 MG CPDR 1 PO Q D DAY ESOMEPRAZOLE MAGNESIUM 81787003631 No Longer Active Sadia Perry RN Active NEXIUM 40 MG PACK 1 by mouth daily NEXIUM 40 MG PACK ESOMEPRAZOLE MAGNESIUM Inactive VERAPAMIL HCL CR 180 MG CR-TABS TAKE 1 TAB DAILY VERAPAMIL HCL CR 180 MG CR-TABS VERAPAMIL HCL Inactive HYDROCODONE-ACETAMINOPHEN 5-325 MG TABS 1 q 4-6 hrs prn HYDROCODONE-ACETAMINOPHEN 5-325 MG TABS 294384 HYDROCODONE-ACETAMINOPHEN Inactive ROBAXIN-750 750 MG TABS 2 four times a day for 3 days as needed for muscle spasm, then 1 four times a day as needed ROBAXIN-750 750 MG TABS 967606 METHOCARBAMOL Inactive NITROSTAT 0.4 MG SUBL as directed NITROSTAT 0.4 MG SUBL 465437 NITROGLYCERIN Inactive METHOCARBAMOL 750 MG TABS 1 PO QID PRN METHOCARBAMOL 750 MG TABS 603557 METHOCARBAMOL Inactive VALIUM 5 MG TAB 1 po 30 minutes prior to your MRI VALIUM 5 MG TAB 537390 DIAZEPAM Inactive ANUSOL-HC 25 MG SUPPOSITORY 1 suppository rectally each evening as needed for anal fissure ANUSOL-HC 25 MG SUPPOSITORY 4603598 HYDROCORTISONE JAYDEN (RECTAL) Inactive ANUSOL-HC 25 MG SUPPOSITORY 1 rectally twice a day as needed for hemorrhoids ANUSOL-HC 25 MG SUPPOSITORY 3354696 HYDROCORTISONE JAYDEN (RECTAL) Inactive FLONASE 50 MCG/ACT SUSP 1 spray each nostril am and hs FLONASE 50 MCG/ACT SUSP 5420922 FLUTICASONE PROPIONATE Inactive DICLOFENAC SODIUM 75 MG TBEC 1 tablet by q 12 hours PRN headaches DICLOFENAC SODIUM 75 MG TBEC 420790 DICLOFENAC SODIUM Inactive PA VITAMIN D-3 2000 UNIT CAPS 1 CAP PO DAILY PA VITAMIN D-3 2000 UNIT CAPS CHOLECALCIFEROL Inactive PREVACID 30 MG CPDR Take 1 tablet by mouth daily-PRN PREVACID 30 MG CPDR 843428 LANSOPRAZOLE Inactive DOXYCYCLINE HYCLATE 100 MG TAB 1 tab twice a day for 14 days 2013 DOXYCYCLINE HYCLATE 100 MG TAB 1980754 DOXYCYCLINE HYCLATE Inactive XOPENEX 1.25 MG/3ML NEBU 1 neb every 4 hours if needed for cough/congestion XOPENEX 1.25 MG/3ML [facility] 031466 LEVALBUTEROL HCL Inactive CYCLOBENZAPRINE HCL 10 MG TABS 1/2 - 1 tab by mouth three times daily if needed for spasms/pain CYCLOBENZAPRINE HCL 10 MG TABS 972212 CYCLOBENZAPRINE HCL Inactive ALBUTEROL SULFATE 0.083 % NEBU SOLN one vial per nebulizer every 4-6 hours as needed ALBUTEROL SULFATE 0.083 % NEBU SOLN 125339 ALBUTEROL SULFATE Inactive CEFTIN 500 MG TAB 1 twice a day CEFTIN 500 MG TAB 727664 CEFUROXIME AXETIL Inactive ZOFRAN ODT 4 MG TBDP 1 pill dissolved by mouth every 4 hours if needed for nausea ZOFRAN ODT 4 MG TBDP 384291 ONDANSETRON Inactive ADULT ASPIRIN EC LOW STRENGTH 81 MG TBEC Take 1 tablet by mouth daily 2014 ADULT ASPIRIN EC LOW STRENGTH 81 MG TBEC 182758 ASPIRIN Inactive CALCIUM 600+D PLUS MINERALS 600-400 [...] or an apple NIACIN 500 MG TABS 446003 NIACIN Inactive NIASPAN 500 MG ORAL CR-TABS 1 pill nightly x 1 week, then 2 pills nightly x 1 week, then 3 pills nightly x 1 week, then 4 pills nightly NIASPAN 500 MG ORAL CR-TABS NIACIN (ANTIHYPERLIPIDEMIC) Inactive OXYCODONE HCL 5 MG ORAL CAPS 1 TAB PO Q HS OXYCODONE HCL 5 MG ORAL CAPS 8398464 OXYCODONE HCL Inactive FLUTICASONE PROPIONATE 50 MCG/ACT SUSP 1 to 2 sprays each nostril daily 04/21 FLUTICASONE PROPIONATE 50 MCG/ACT SUSP 2932216 FLUTICASONE PROPIONATE Inactive POLYTRIM 23324-0.1 UNIT/ML-% SOLN 1 gtt to affected eye q3h x 7 days POLYTRIM 73159-3.1 UNIT/ML-% SOLN 369828 POLYMYXIN B- TRIMETHOPRIM Inactive CHERATUSSIN AC 100-10 MG/5ML SYRP 1 tsp by mouth every 4 hours as needed for cough CHERATUSSIN AC 100-10 MG/5ML SYRP 916616 GUAIFENESIN-CODEINE Inactive LEVOTHYROXINE SODIUM 75 MCG TABS Take 1 tab daily LEVOTHYROXINE SODIUM 75 MCG TABS 589812 LEVOTHYROXINE SODIUM Inactive CLARITIN 10 MG TAB 1 tablet by mouth daily as needed for allergies CLARITIN 10 MG TAB 470501 LORATADINE Inactive FISH OIL 1000 MG CAPS 3 pills daily FISH OIL 1000 MG CAPS OMEGA-3 FATTY ACIDS Inactive ONDANSETRON 4 MG TBDP 1 q4h PRN nausea ONDANSETRON 4 MG TBDP 903989 ONDANSETRON Inactive ADVAIR DISKUS 250-50 MCG/DOSE AEPB 1 puff BID ADVAIR DISKUS 250-50 MCG/DOSE AEPB FLUTICASONE-SALMETEROL Inactive TRAMADOL HCL 50 MG TABS 1 tab po every 6 hrs prn pain TRAMADOL HCL 50 MG TABS 802576 TRAMADOL HCL Inactive TRIAMCINOLONE ACETONIDE 0.1 % CREA apply bid sparingly to rash TRIAMCINOLONE ACETONIDE 0.1 % CREA 7417253 TRIAMCINOLONE ACETONIDE Inactive PREDNISONE 20 MG TAB 1 tab twice daily for 3 day, then one daily for three days PREDNISONE 20 MG TAB 786773 PREDNISONE Inactive IBUPROFEN 600 MG TAB 1 tablet by mouth every 6 hours for 7 days, then 1 tablet every 6 hours as needed. Take with food IBUPROFEN 600 MG TAB 599189 IBUPROFEN Inactive BACTRIM DS 800-160 MG TAB 1 tab by mouth twice daily BACTRIM DS 800-160 MG TAB 19820606 TRIMETHOPRIM-SULFAMETHOXAZOLE Inactive AZITHROMYCIN 250 MG TABS 2 po qd x 1 day, then 1 po qd x 4 days AZITHROMYCIN 250 MG TABS 980892 AZITHROMYCIN Inactive CEFDINIR 300 MG CAPS by mouth twice a day CEFDINIR 300 MG CAPS 901193 CEFDINIR Inactive AZITHROMYCIN 250 MG TABS 2 pills on day 1, then 1 pill daily x 4 days AZITHROMYCIN 250 MG TABS 689350 AZITHROMYCIN Inactive DOXYCYCLINE HYCLATE 100 MG CAP 1 cap by mouth twice daily DOXYCYCLINE HYCLATE 100 MG CAP 8010915 DOXYCYCLINE HYCLATE Inactive FUROSEMIDE 20 MG TABS 1 pill by mouth daily, for edema FUROSEMIDE 20 MG TABS 988523 FUROSEMIDE Inactive AZITHROMYCIN 250 MG TABS 2 po qd x 1 day, then 1 po qd x 4 days AZITHROMYCIN 250 MG TABS 224458 AZITHROMYCIN Inactive CEFTIN 500 MG TAB 1 twice a day CEFTIN 500 MG TAB 684274 CEFUROXIME AXETIL Inactive CEFDINIR 300 MG CAPS [...] for 2 days PREDNISONE 20 MG TAB 204388 PREDNISONE Inactive PREDNISONE 20 MG TAB take 3 tabs daily for 3 days, 2 tabs daily for 3 days, 1 tab daily for 3 days, 1/2 tab daily for 3 days PREDNISONE 20 MG TAB 660931 PREDNISONE Inactive BACTRIM DS 800-160 MG TAB 1 tab by mouth twice daily BACTRIM DS 800-160 MG TAB 343644 TRIMETHOPRIM-SULFAMETHOXAZOLE Inactive Immunizations Vaccine Administration Date Value Standard Description Seasonal influenza vaccine, injectable, containing preservative, for > 3 years old (Afluria, FluLaval, Fluzone, Fluvirin, Fluarix, Agriflu(>=18 yo)) Fluzone (>3 yrs.) [GIH330] Influenza, seasonal, injectable influenza immunization (Flu Vax) has been administered Influenza - Unspecified Formulation [CVX88] influenza virus vaccine, unspecified formulation pneumococcal immunization administered Pneumovax 23 [CVX33] pneumococcal polysaccharide vaccine, 23 valent Seasonal influenza vaccine, injectable, containing preservative, for > 3 years old (Afluria, FluLaval, Fluzone, Fluvirin, Fluarix, Agriflu(>=18 yo)) Fluzone (>3 yrs.) [ZIE263] Influenza, seasonal, injectable dT (Diphtheria and Tetanus) booster given given Td(adult) unspecified formulation Boostrix (Tetanus toxoid, reduced diphtheria toxoid and acellular pertussis vaccine, adsorbed), booster Boostrix [EGG666] tetanus toxoid, reduced diphtheria toxoid, and acellular [...] No Encounters Code Encounter Date Provider Facility CPT-60469 Level 3 Est. Patient 10:28:15 CDT Tisha Lambert Formerly named [facility] CPT-30304 Level 3 Est. Patient 14:50:29 CDT Gab Padron MD [facility] CPT-90686 Level 3 Est. Patient 14:46:09 CDT Tisha Lambert Formerly named [facility] CPT-44908 Level 4 New Patient 16:13:15 CDT Todd Callaway MD [facility] CPT-49133 Level 4 Est. Patient 13:18:33 CDT Gab Padron MD [facility] CPT-37557 Level 3 Est. Patient 15:20:50 CDT Jared Og MD [facility] CPT-99023 Level 3 Est. Patient 17:43:55 VARNISH MIXER Gab Padron MD [facility] CPT-30834 Level 3 Est. Patient 17:07:49 VARNISH MIXER Jared Og MD [facility] CPT-59481 Level 4 Est. Patient 19:55:18 VARNISH MIXER Jared Og MD [facility] CPT-52167 Level 3 Est. Patient 20:13:34 VARNISH MIXER Jared Og MD [facility] CPT-77734 Level 4 Est. Patient 16:31:27 CDT Gab Padron MD [facility] CPT-30372 Level 2 Est. Patient 12:23:38 CDT Jared Og MD [facility] CPT-69045 Level 3 Est. Patient 11:01:51 CDT Gab Padron MD [facility] CPT-02172 Level 3 Est. Patient 15:27:02 CDT Jared Og MD [facility] [place] CPT-98252 Level 4 Est. Patient 09:25:27 CDT Gab Padron MD [facility] CPT-09549 Level 3 Est. Patient 10:29:41 CDT Rodrigo Sarah Formerly named [facility] CPT-08752 Level 4 Est. Patient 17:51:05 CDT Gab Padron MD [facility] CPT-13618 Level 3 Est. Patient 14:18:08 CDT Gab Padron MD [facility] CPT-15588 Level 4 Est. Patient 10:18:54 CDT Gab Padron MD [facility] CPT-72276 Level 3 Est. Patient 11:30:07 CDT Rodrigo Sarah Formerly named [facility] CPT-05423 Level 4 Est. Patient 21:02:30 VARNISH MIXER Gab Padron MD [facility] CPT-71570 Level 3 Est. Patient 11:02:19 VARNISH MIXER Gab Padron MD [facility] CPT-58328 Level 4 Est. Patient 22:24:31 VARNISH MIXER Gab Padron MD [facility]-82133 Level 3 Est. Patient 18:33:46 VARNISH MIXER Gab Padron MD [facility]-85025 Level 3 Est. Patient 16:19:11 CDT Yolande Lindsay MD [facility]-11801 Level 3 Est. Patient 18:59:14 CDT Yolande Lindsay MD [facility]-09747 Level 4 Est. Patient 21:29:26 CDT Yolande Lindsay MD [facility]-18068 Level 3 Est. Patient 07:37:45 CDT Yolande Lindsay MD [facility]-59724 Level 3 Est. Patient 17:03:46 CDT Yolande Lindsay MD [facility]-30148 Level 4 Est. Patient 20:02:13 VARNISH MIXER Yolande Lindsay MD [facility]-35599 Level 3 Est. Patient 16:02:07 VARNISH MIXER Alexis Ordaz MD [facility]-49907 Level 3 Est. Patient 12:41:24 VARNISH MIXER Yolande Lindsay MD [facility]-67523 Level 3 Est. Patient 15:41:20 VARNISH MIXER Yolande Lindsay MD [facility]-84491 Level 3 Est. Patient 13:20:02 VARNISH MIXER Yolande Lindsay MD [facility]-86615 Level 3 Est. Patient 15:00:38 CDT Jared Og MD [facility]-93725 Level 3 Est. Patient 10:22:32 CDT Yolande Lindsay MD [facility]-35617 Level 3 Est. Patient 17:12:58 CDT Yolande Lindsay MD [facility]-82875 Level 4 Est. Patient 13:30:58 CDT Yolande Lindsay MD [facility] CPT-93424 Level 4 New Patient 09:02:42 CDT Jared Og MD [facility]-66775 Level 3 Est. Patient 08:19:07 CDT Yolande Lindsay MD [facility]-48372 Level 3 Est. Patient 12:00:13 VARNISH MIXER Gab Padron MD [facility]-92609 Level 3 Est. Patient 16:15:23 VARNISH MIXER Yolande Lindsay MD [facility]-86399 Level 2 Est. Patient 19:47:15 CDT Yolande Lindsay MD [facility]-48052 Level 3 Est. Patient 21:38:31 CDT Yolande Lindsay MD [facility]-67168 Level 3 Est. Patient 10:25:12 CDT Adiel PERAZA [facility] CPT-03913 Level 4 Est. Patient 10:51:58 CDT Yolande Lindsay MD [facility]-81976 Level 3 Est. Patient 14:04:55 VARNISH MIXER Rodrigo Sarah [facility]-29142 Level 3 Est. Patient 10:46:35 VARNISH MIXER Rodrigo Sarah [facility]-11133 Level 3 Est. Patient 14:24:37 VARNISH MIXER Yolande Lindsay MD [facility]-56874 Level 3 Est. Patient 17:41:58 VARNISH MIXER Yolande Lindsay MD [facility]-92429 Level 2 Est. Patient 22:01:41 VARNISH MIXER Rodrigo Sarah [facility]-32624 Level 2 Est. Patient 22:01:11 VARNISH MIXER Rodrigo Sarah [facility] CPT-20423 Level 3 Est. Patient 10:12:29 VARNISH MIXER Rodrigo Sarah [facility] CPT-80916 Level 3 Est. Patient 11:05:44 CDT Alexis Ordaz MD [facility] CPT-51066 Level 3 Est. Patient 14:57:20 CDT Yolande Lindsay MD [facility] CPT-23686 Level 3 Est. Patient 14:40:57 CDT Yolande Lindsay MD [facility] CPT-48034 Level 3 Est. Patient 20:55:40 CDT Yolande Lindsay MD [facility] CPT-06810 Level 3 Est. Patient 12:42:38 VARNISH MIXER Yolande Lindsay MD [facility] CPT-79005 Level 3 Est. Patient 11:54:49 VARNISH MIXER Des Hines MD [facility] CPT-18651 Level 3 Est. Patient 17:06:38 CDT Dewayne PERAZA [facility] Procedures Code Procedure Name Date Entry Date Standard Description CPT-J2930 Solu Medrol 125 mg (Methyl Prednisolone Sodium Succinate) 13:19:02 CDT CPT-74788 Abx/Therapy Injection 13:19:02 CDT CPT-J2930 Solu Medrol 125 mg (Methyl Prednisolone Sodium Succinate) 13:05:03 CDT CPT-60376 Hip, complete, 2-3 views - XRAY USE ONLY 17:19:04 VARNISH MIXER CPT-24040 Venipuncture Draw Fee 08:37:59 VARNISH MIXER CPT-46931 Liver Profile - LAB USE ONLY 08:37:59 VARNISH MIXER CPT-60751 Lipid - LAB USE ONLY 08:37:58 VARNISH MIXER CPT-64676 First Vx - Ix admin via ID IM or jet injects without counseling by physician 11:52:31 CDT CPT-31581 Fluzone Preservative Free Intramuscular Suspension 11:52 :31 CDT CPT-09999 Foot, left, comp min 3V - XRAY USE ONLY 09:24:54 CDT CPT-52288 Abd single AP View - XRAY USE ONLY 11:16:17 CDT CPT-95676 T spine AP/ Lat - XRAY USE ONLY 09:34:21 CDT CPT-33533 Chest 2V Frontal and Lat - XRAY USE ONLY 10:48:51 CDT CPT-08973 LS spine comp w obliq 13:28:00 VARNISH MIXER CPT-J1040 Depo Medrol 80 mg (Methyl Prednisolone Acetate) 10:51: 28 VARNISH MIXER CPT-J1100 Decadron 8mg (Dexamethasone) 10:51:28 VARNISH MIXER CPT-58143 Abx/Therapy Injection 10:51:28 VARNISH MIXER CPT-J1100 Decadron 8mg (Dexamethasone) 21:02:30 VARNISH MIXER CPT-J1040 Depo Medrol 80 mg (Methyl Prednisolone Acetate) 21:02: 30 VARNISH MIXER [id number] Event Monitor - MC Transmission 09:12:32 CDT 08/06 [id number] Event Monitor - MC review and interp 09:12:32 CDT [id number] Event Monitor - MC recording 09:12:32 CDT CPT-10956 EKG Trac and Interp 16:50:22 CDT CPT-J1030 Depo Medrol 40 mg (Methyl Prednisolone Acetate) 17:05: 54 CDT CPT-J1100 Decadron 4mg (Dexamethasone) 17:05:54 CDT CPT-05475 Abx/Therapy Injection 17:05:54 CDT CPT-J1100 Decadron 4mg (Dexamethasone) 16:55:28 CDT CPT-J1030 Depo Medrol 40 mg (Methyl Prednisolone Acetate) 16:55: 28 CDT CPT-81272 Ankle Complete - Min 3V 15:58:50 CDT CPT-23641 Knee 3V 15:58:50 CDT CPT-09226 Hip comp min 2V 15:58:50 CDT CPT-J2270 Morphine Sulfate 10 mg 14:25:44 VARNISH MIXER CPT-J2550 Phenergan 12.5 mg (Promethazine) 14:25:44 VARNISH MIXER CPT-67553 Abx/Therapy Injection 14:25:44 [employer] CPT-J2550 Phenergan 12.5 mg (Promethazine) 14:08:03 [employer] CPT-J2270 Morphine Sulfate 10 mg 14:08:03 [employer] CPT-19894 Bladder Scan 15:00:38 CDT CPT-TCMM Transitional Care Mgmt-Moderate 09:52:22 CDT CPT-J1030 Depo Medrol 40 mg (Methyl Prednisolone Acetate) 10:55: 18 CDT CPT-J1100 Decadron 4mg (Dexamethasone) 10:55:18 CDT CPT-95616 Abx/Therapy Injection 10:55:18 CDT CPT-J1030 Depo Medrol 40 mg (Methyl Prednisolone Acetate) 10:22: 32 CDT CPT-J1100 Decadron 4mg (Dexamethasone) 10:22:32 CDT CPT-62398 Postop F/U Visit 14:37:13 CDT CPT-45457 Ankle Complete - Min 3V 17:11:58 CDT CPT-65769 Foot comp min 3V 17:11:58 CDT CPT-28261 Bladder Scan 09:56:58 CDT CPT-91279 Postop F/U Visit 09:56:58 CDT CPT-23751 Cystoscopy 09:02:42 CDT CPT-95849 Bladder Scan 09:02:42 CDT CPT-94950 Abd single AP View 16:00:35 CDT CPT-70666 Administration single or combination vaccine inc oral 10 :15:43 CDT CPT-32590 Influenza split virus > age 3 10:15:43 CDT CPT-41165 Nail Avulsion 09:24:57 CDT CPT-OV Office Visit 11:15:41 CDT CPT-12733 Abx/Therapy Injection 10:51:30 CDT CPT-J3301 Kenalog 40 mg (Triamcinolone Acetonide) 10:25:12 CDT CPT-J1100 Decadron 4mg (Dexamethasone) 10:25:12 CDT CPT-24019 Anoscopy diagnostic 10:36:12 CDT CPT-OV Office Visit 15:34:31 CDT CPT-08839 Abx/Therapy Injection 08:21:15 [employer] CPT-J1885 Toradol 60 mg (Ketorolac) 10:46:35 [employer] CPT-OV Office Visit 19:51:16 [employer] CPT-78471 Spec Collection and Handling Fee 14:34:18 [employer] CPT-PV Prev. Care Visit 14:19:18 [employer] CPT-25922 Postop F/U Visit 14:47:51 [employer] CPT-79618 Postop F/U Visit 15:15:14 [employer] CPT-35409 Postop F/U Visit 14:41:43 CDT CPT-49088 Postop F/U Visit 15:47:46 CDT CPT-OV Office Visit 15:27:23 CDT CPT-OV Office Visit 17:20:34 CDT CPT-59019 Abx/Therapy Injection 15:05:57 CDT CPT-J1100 Decadron 8mg (Dexamethasone) 14:44:57 CDT CPT-J1040 Depo Medrol 80 mg (Methyl Prednisolone Acetate) 14:44: 57 CDT CPT-JTINJ Joint Injection 10:17:37 CDT CPT-83049 Administration 2+ single or combination vaccines inc oral 13:01:46 [employer] CPT-34394 Administration single or combination vaccine inc oral 13 :01:46 [employer] CPT-89987 Pneumovax 13:01:46 [employer] CPT-60937 Influenza split virus > age 3 13:01:46 [employer] CPT-72956 Administration single or combination vaccine inc oral 08 :56:49 CDT CPT-09176 Tdap 08:56:49 CDT
--- OUTSIDE RECORDS SUMMARY | 2017-03-22 00:02 | XMS REPORT | Clinical Summary ---
Author Author Admin, MARGRET Organization [facility] Address Unknown Phone Unavailable Allergies, Adverse Reactions, Alerts Allergy Name Reaction Description Start Date Severity Status Provider VALENTIN Critical Active Rodrigo Montemayorl [employer] CHLORHEXIDINE GLUCONATE tongue and gums swollen Critical Active Hoa Kabaford [facility] NORFLEX Rash Critical Active Silvestrellina Frazell [employer] TRAZODONE HCL sees things Critical Active Dewayne [...] system, NEC FREQUENCY, URINARY 788.41 Resolved Yolande Linsday MD PhD Urinary frequency ALLERGIC RHINITIS 477.9 [...] infarction, hx of 412 Active Hoa Otto [facility] Old myocardial infarction Pelvic pain [...] 1 tab by mouth twice daily TRIMETHOPRIM-SULFAMETHOXAZOLE 98597711778 No Longer Active Tisha Lambert APRN Active ADVAIR DISKUS 250-50 MCG/DOSE AEPB 1 puff BID FLUTICASONE-SALMETEROL 11380761474 No Longer Active Todd Callaway MD Active ONDANSETRON 4 MG TBDP 1 q4h PRN nausea ONDANSETRON 15108216817 No Longer Active LONNIE Iglesias Active FISH OIL 1000 MG CAPS 3 pills daily OMEGA-3 FATTY ACIDS 14809633564 No Longer Active LONNIE Iglesias Active CETIRIZINE HCL 10 MG ORAL TABS 1 po qd PRN Allergies CETIRIZINE HCL 69110947069 Active Gab Padron MD Active CLARITIN 10 MG TAB 1 tablet by mouth daily as needed for allergies LORATADINE 53251956198 No Longer Active Gab Padron MD Active PREDNISONE 20 MG TAB take 3 tabs daily for 3 days, 2 tabs daily for 3 days, 1 tab daily for 3 days, 1/2 tab daily for 3 days PREDNISONE 99766200524 No Longer Active Tisha Lambert APRN Active TRAMADOL HCL 50 MG TABS 1 tab po every 6 hrs prn pain TRAMADOL HCL 74315212258 Active Gab Padron MD Active PREDNISONE 20 MG TAB 2 tabs daily for 3 days, 1 tab daily for 3 days, 1/2 tab daily for 2 days PREDNISONE 86212668505 No Longer Active Gab Padron MD Active ZOFRAN ODT 4 MG TBDP 1 po q6hr PRN Nausea ONDANSETRON 21961111882 Active Gab Padron MD Active IBUPROFEN 600 MG TAB 1 tablet by mouth every 6 hours for 7 days, then 1 tablet every 6 hours as needed. Take with food IBUPROFEN 26194323335 Active Rodrigo Sarah APRN Active BACTRIM DS 800-160 MG TAB 1 tab by mouth twice daily TRIMETHOPRIM-SULFAMETHOXAZOLE 26720476993 No Longer Active Gab Padron MD Active LEVOTHYROXINE SODIUM 75 MCG TABS Take 1 tab daily LEVOTHYROXINE SODIUM 14834247496 No Longer Active Mariana Cuadra [facility] Active SYNTHROID 88 MCG ORAL TABS Take one by mouth daily LEVOTHYROXINE SODIUM 11996023840 Active Gab Padron MD Active CHERATUSSIN AC 100-10 MG/5ML SYRP 1 tsp by mouth every 4 hours as needed for cough GUAIFENESIN-CODEINE 99454390572 No Longer Active Gab Padron MD Active POLYTRIM 00812-0.1 UNIT/ML-% SOLN 1 gtt to affected eye q3h x 7 days POLYMYXIN B-TRIMETHOPRIM 32183753593 No Longer Active Gab Padron MD Active FLUTICASONE PROPIONATE 50 MCG/ACT SUSP 1 to 2 sprays each nostril daily 04/21 FLUTICASONE PROPIONATE 05485290149 No Longer Active Gab Padron MD Active TRILEPTAL 600 MG TABS Take one 1 tablet in Am and 1 tablet at night OXCARBAZEPINE 60075497623 Active Gab Padron MD Active CEFDINIR 300 MG CAPS 1 po BID x 10 days CEFDINIR 80954993999 No Longer Active Rodrigo Sarah APRN Active CEFTIN 500 MG TAB 1 twice a day CEFUROXIME AXETIL 62632221573 No Longer Active Gab Padron MD Active AZITHROMYCIN 250 MG TABS 2 po qd x 1 day, then 1 po qd x 4 days AZITHROMYCIN 33000143270 No Longer Active Rodrigo Sarah APRN Active OXYCODONE HCL 5 MG ORAL CAPS 1 TAB PO Q HS OXYCODONE HCL 65507146398 No Longer Active Rodrigo Sarah APRN Active NIASPAN 500 MG ORAL CR-TABS 1 pill nightly x 1 week, then 2 pills nightly x 1 week, then 3 pills nightly x 1 week, then 4 pills nightly NIACIN (ANTIHYPERLIPIDEMIC) 69445653036 No Longer Active Rodrigo Sarah APRN Active NIACIN 500 MG TABS 1 pill by mouth nightly x 1 week, then 2 pills x 1 week, then 3 pills x 1 week, then 4 pills nightly - take after evening meal, with applesauce or an apple NIACIN 96617893241 No Longer Active Yolande Lindsay MD PhD Active TRIAMCINOLONE ACETONIDE 0.1 % CREA apply bid sparingly to rash TRIAMCINOLONE ACETONIDE 85957980272 Active Yolande Lindsay MD PhD Active FUROSEMIDE 20 MG TAB 1 tablet by mouth daily FUROSEMIDE 91772226759 Active Gab Padron MD Active LISINOPRIL 20 MG ORAL TABS 1 tab by mouth daily LISINOPRIL 49886990536 Active Gab Padron MD Active FUROSEMIDE 20 MG TABS 1 pill by mouth daily, for edema FUROSEMIDE 71821672228 No Longer Active Yolande Lindsay MD PhD Active ATORVASTATIN CALCIUM 10 MG TABS 1 pill by mouth daily, for cholesterol 09/06 ATORVASTATIN CALCIUM 91009699765 Active Gab Padron MD Active CALCIUM 600+D PLUS MINERALS 600-400 MG-UNIT ORAL CHEW 1 tab by mouth daily CALCIUM CARBONATE-VIT D-MIN 96189477667 No Longer Active Yolande Lindsay MD PhD Active CYCLOBENZAPRINE HCL 10 MG TABS 1 tablet by mouth three times daily as needed for muscle spasm/pain CYCLOBENZAPRINE HCL 18846334576 Active Yolande Lindsay MD PhD Active ADULT ASPIRIN EC LOW STRENGTH 81 MG TBEC Take 1 tablet by mouth daily 2014 ASPIRIN 36744087859 No Longer Active Yolande Lindsay MD PhD Active ZOFRAN ODT 4 MG TBDP 1 pill dissolved by mouth every 4 hours if needed for nausea ONDANSETRON 84132175956 No Longer Active Yolande Lindsay MD PhD Active CEFTIN 500 MG TAB 1 twice a day CEFUROXIME AXETIL 32670594854 No Longer Active Yolande Lindsay MD PhD Active ALBUTEROL SULFATE 0.083 % NEBU SOLN one vial per nebulizer every 4-6 hours as needed ALBUTEROL SULFATE 44570686695 No Longer Active Alexis Ordaz MD Active DOXYCYCLINE HYCLATE 100 MG CAP 1 cap by mouth twice daily DOXYCYCLINE HYCLATE 62845570822 No Longer Active Yolande Lindsay MD PhD Active CYCLOBENZAPRINE HCL 10 MG TABS 1/2 - 1 tab by mouth three times daily if needed for spasms/pain CYCLOBENZAPRINE HCL 49264582796 No Longer Active Yolande Lindsay MD PhD Active AZITHROMYCIN 250 MG TABS 2 pills on day 1, then 1 pill daily x 4 days AZITHROMYCIN 67927114280 No Longer Active Yolande Lindsay MD PhD Active XOPENEX 1.25 MG/3ML NEBU 1 neb every 4 hours if needed for cough/congestion LEVALBUTEROL HCL 98385188397 No Longer Active Yolande Lindsay MD PhD Active DOXYCYCLINE HYCLATE 100 MG TAB 1 tab twice a day for 14 days 2013 DOXYCYCLINE HYCLATE 56720824893 No Longer Active Yolande Lindsay MD PhD Active PREVACID 30 MG CPDR Take 1 tablet by mouth daily-PRN LANSOPRAZOLE 97936373169 No Longer Active Yolande Lindsay MD PhD Active PA VITAMIN D-3 2000 UNIT CAPS 1 CAP PO DAILY CHOLECALCIFEROL 56553335187 No Longer Active Yolande Lindsay MD PhD Active CEFDINIR 300 MG CAPS by mouth twice a day CEFDINIR 73566720823 No Longer Active Gab Padron MD Active TOPAMAX 50 MG TABS 1 PO twice daily TOPIRAMATE 83594979618 Active Yolande Lindsay MD PhD Active AZITHROMYCIN 250 MG TABS 2 po qd x 1 day, then 1 po qd x 4 days AZITHROMYCIN 46088851616 No Longer Active Yolande Lindsay MD PhD Active DICLOFENAC SODIUM 75 MG TBEC 1 tablet by q 12 hours PRN headaches DICLOFENAC SODIUM 55447798358 No Longer Active Yolande Lindsay MD PhD Active FLONASE 50 MCG/ACT SUSP 1 spray each nostril am and hs FLUTICASONE PROPIONATE 57007353569 No Longer Active Todd Callaway MD Active ANUSOL-HC 25 MG SUPPOSITORY 1 rectally twice a day as needed for hemorrhoids HYDROCORTISONE JAYDEN (RECTAL) 37478901243 No Longer Active Yolande Lindsay MD PhD Active ANUSOL-HC 25 MG SUPPOSITORY 1 suppository rectally each evening as needed for anal fissure HYDROCORTISONE JAYDEN (RECTAL) 48288987653 No Longer Active LONNIE Iglesias Active VALIUM 5 MG TAB 1 po 30 minutes prior to your MRI DIAZEPAM 86546373422 No Longer Active LONNIE Iglesias Active METHOCARBAMOL 750 MG TABS 1 PO QID PRN METHOCARBAMOL 90231146998 No Longer Active Daphne Wetzel APRN Active NITROSTAT 0.4 MG SUBL as directed NITROGLYCERIN 41219357119 No Longer Active Rodrigo Sarah APRN Active ROBAXIN-750 750 MG TABS 2 four times a day for 3 days as needed for muscle spasm, then 1 four times a day as needed METHOCARBAMOL 91888496801 No Longer Active Rodrigo Sarah APRN Active HYDROCODONE-ACETAMINOPHEN 5-325 MG TABS 1 q 4-6 hrs prn HYDROCODONE-ACETAMINOPHEN 97754351723 No Longer Active Rodrigo Sarah [employer] Active VERAPAMIL HCL CR 180 MG CR-TABS TAKE 1 TAB DAILY VERAPAMIL HCL 01945722926 No Longer Active Yolande Lindsay MD PhD Active BACTRIM DS 800-160 MG TAB 1 tab by mouth twice daily TRIMETHOPRIM-SULFAMETHOXAZOLE 08932393894 No Longer Active Yolande Lindsay MD PhD Active NEXIUM 40 MG PACK 1 by mouth daily ESOMEPRAZOLE MAGNESIUM 03866904823 No Longer Active Des Hines MD Active EPIPEN 2-CHARLETTE 0.3 MG/0.3ML OMARI as need for allergic reaction EPINEPHRINE 07184654326 Active Yolande Lindsay MD PhD Active NEXIUM 40 MG CPDR 1 PO Q D DAY ESOMEPRAZOLE MAGNESIUM 88577402279 No Longer Active Sadia Perry RN Active NEXIUM 40 MG PACK 1 by mouth daily NEXIUM 40 MG PACK ESOMEPRAZOLE MAGNESIUM Inactive VERAPAMIL HCL CR 180 MG CR-TABS TAKE 1 TAB DAILY VERAPAMIL HCL CR 180 MG CR-TABS VERAPAMIL HCL Inactive HYDROCODONE-ACETAMINOPHEN 5-325 MG TABS 1 q 4-6 hrs prn HYDROCODONE-ACETAMINOPHEN 5-325 MG TABS 310194 HYDROCODONE-ACETAMINOPHEN Inactive ROBAXIN-750 750 MG TABS 2 four times a day for 3 days as needed for muscle spasm, then 1 four times a day as needed ROBAXIN-750 750 MG TABS 034999 METHOCARBAMOL Inactive NITROSTAT 0.4 MG SUBL as directed NITROSTAT 0.4 MG SUBL 417305 NITROGLYCERIN Inactive METHOCARBAMOL 750 MG TABS 1 PO QID PRN METHOCARBAMOL 750 MG TABS 662897 METHOCARBAMOL Inactive VALIUM 5 MG TAB 1 po 30 minutes prior to your MRI VALIUM 5 MG TAB 768838 DIAZEPAM Inactive ANUSOL-HC 25 MG SUPPOSITORY 1 suppository rectally each evening as needed for anal fissure ANUSOL-HC 25 MG SUPPOSITORY 8089357 HYDROCORTISONE JAYDEN (RECTAL) Inactive ANUSOL-HC 25 MG SUPPOSITORY 1 rectally twice a day as needed for hemorrhoids ANUSOL-HC 25 MG SUPPOSITORY 4382648 HYDROCORTISONE JAYDEN (RECTAL) Inactive FLONASE 50 MCG/ACT SUSP 1 spray each nostril am and hs FLONASE 50 MCG/ACT SUSP 9382735 FLUTICASONE PROPIONATE Inactive DICLOFENAC SODIUM 75 MG TBEC 1 tablet by q 12 hours PRN headaches DICLOFENAC SODIUM 75 MG TBEC 387285 DICLOFENAC SODIUM Inactive PA VITAMIN D-3 2000 UNIT CAPS 1 CAP PO DAILY PA VITAMIN D-3 2000 UNIT CAPS CHOLECALCIFEROL Inactive PREVACID 30 MG CPDR Take 1 tablet by mouth daily-PRN PREVACID 30 MG CPDR 186220 LANSOPRAZOLE Inactive DOXYCYCLINE HYCLATE 100 MG TAB 1 tab twice a day for 14 days 2013 DOXYCYCLINE HYCLATE 100 MG TAB 8826241 DOXYCYCLINE HYCLATE Inactive XOPENEX 1.25 MG/3ML NEBU 1 neb every 4 hours if needed for cough/congestion XOPENEX 1.25 MG/3ML NEBU 697036 LEVALBUTEROL HCL Inactive CYCLOBENZAPRINE HCL 10 MG TABS 1/2 - 1 tab by mouth three times daily if needed for spasms/pain CYCLOBENZAPRINE HCL 10 MG TABS 653726 CYCLOBENZAPRINE HCL Inactive ALBUTEROL SULFATE 0.083 % NEBU SOLN one vial per nebulizer every 4-6 hours as needed ALBUTEROL SULFATE 0.083 % NEBU SOLN 843501 ALBUTEROL SULFATE Inactive CEFTIN 500 MG TAB 1 twice a day CEFTIN 500 MG TAB 207322 CEFUROXIME AXETIL Inactive ZOFRAN ODT 4 MG TBDP 1 pill dissolved by mouth every 4 hours if needed for nausea ZOFRAN ODT 4 MG TBDP 989928 ONDANSETRON Inactive ADULT ASPIRIN EC LOW STRENGTH 81 MG TBEC Take 1 tablet by mouth daily 2014 ADULT ASPIRIN EC LOW STRENGTH 81 MG TBEC 188659 ASPIRIN Inactive CALCIUM 600+D PLUS MINERALS 600-400 [...] or an apple NIACIN 500 MG TABS 793238 NIACIN Inactive NIASPAN 500 MG ORAL CR-TABS 1 pill nightly x 1 week, then 2 pills nightly x 1 week, then 3 pills nightly x 1 week, then 4 pills nightly NIASPAN 500 MG ORAL CR-TABS NIACIN (ANTIHYPERLIPIDEMIC) Inactive OXYCODONE HCL 5 MG ORAL CAPS 1 TAB PO Q HS OXYCODONE HCL 5 MG ORAL CAPS 7536312 OXYCODONE HCL Inactive FLUTICASONE PROPIONATE 50 MCG/ACT SUSP 1 to 2 sprays each nostril daily 04/21 FLUTICASONE PROPIONATE 50 MCG/ACT SUSP 3217022 FLUTICASONE PROPIONATE Inactive POLYTRIM 02284-5.1 UNIT/ML-% SOLN 1 gtt to affected eye q3h x 7 days POLYTRIM 62215-5.1 UNIT/ML-% SOLN 426318 POLYMYXIN B- TRIMETHOPRIM Inactive CHERATUSSIN AC 100-10 MG/5ML SYRP 1 tsp by mouth every 4 hours as needed for cough CHERATUSSIN AC 100-10 MG/5ML SYRP 458445 GUAIFENESIN-CODEINE Inactive LEVOTHYROXINE SODIUM 75 MCG TABS Take 1 tab daily LEVOTHYROXINE SODIUM 75 MCG TABS 982890 LEVOTHYROXINE SODIUM Inactive CLARITIN 10 MG TAB 1 tablet by mouth daily as needed for allergies CLARITIN 10 MG TAB 071214 LORATADINE Inactive FISH OIL 1000 MG CAPS 3 pills daily FISH OIL 1000 MG CAPS OMEGA-3 FATTY ACIDS Inactive ONDANSETRON 4 MG TBDP 1 q4h PRN nausea ONDANSETRON 4 MG TBDP 405472 ONDANSETRON Inactive ADVAIR DISKUS 250-50 MCG/DOSE AEPB 1 puff BID ADVAIR DISKUS 250-50 MCG/DOSE AEPB FLUTICASONE-SALMETEROL Inactive BACTRIM DS 800-160 MG TAB 1 tab by mouth twice daily BACTRIM DS 800-160 MG TAB 433943 TRIMETHOPRIM-SULFAMETHOXAZOLE Inactive AZITHROMYCIN 250 MG TABS 2 po qd x 1 day, then 1 po qd x 4 days AZITHROMYCIN 250 MG TABS 1685126 AZITHROMYCIN Inactive CEFDINIR 300 MG CAPS by mouth twice a day CEFDINIR 300 MG CAPS 046619 CEFDINIR Inactive AZITHROMYCIN 250 MG TABS 2 pills on day 1, then 1 pill daily x 4 days AZITHROMYCIN 250 MG TABS 1032294 AZITHROMYCIN Inactive DOXYCYCLINE HYCLATE 100 MG CAP 1 cap by mouth twice daily DOXYCYCLINE HYCLATE 100 MG CAP 2805829 DOXYCYCLINE HYCLATE Inactive FUROSEMIDE 20 MG TABS 1 pill by mouth daily, for edema FUROSEMIDE 20 MG TABS 881159 FUROSEMIDE Inactive AZITHROMYCIN 250 MG TABS 2 po qd x 1 day, then 1 po qd x 4 days AZITHROMYCIN 250 MG TABS 8529884 AZITHROMYCIN Inactive CEFTIN 500 MG TAB 1 twice a day CEFTIN 500 MG TAB 491072 CEFUROXIME AXETIL Inactive CEFDINIR 300 MG CAPS [...] for 2 days PREDNISONE 20 MG TAB 798065 PREDNISONE Inactive PREDNISONE 20 MG TAB take 3 tabs daily for 3 days, 2 tabs daily for 3 days, 1 tab daily for 3 days, 1/2 tab daily for 3 days PREDNISONE 20 MG TAB 660700 PREDNISONE Inactive BACTRIM DS 800-160 MG TAB 1 tab by mouth twice daily BACTRIM DS 800-160 MG TAB 19820606 TRIMETHOPRIM-SULFAMETHOXAZOLE Inactive Immunizations Vaccine Administration Date Value Standard Description Seasonal influenza vaccine, injectable, containing preservative, for > 3 years old (Afluria, FluLaval, Fluzone, Fluvirin, Fluarix, Agriflu(>=18 yo)) Fluzone (>3 yrs.) [ZFJ116] Influenza, seasonal, injectable influenza immunization (Flu Vax) has been administered Influenza - Unspecified Formulation [CVX88] influenza virus vaccine, unspecified formulation Seasonal influenza vaccine, injectable, containing preservative, for > 3 years old (Afluria, FluLaval, Fluzone, Fluvirin, Fluarix, Agriflu(>=18 yo)) Fluzone (>3 yrs.) [[id number]] Influenza, seasonal, injectable pneumococcal immunization administered Pneumovax 23 [CVX33] pneumococcal polysaccharide vaccine, 23 valent dT (Diphtheria and Tetanus) booster given given Td(adult) unspecified formulation Boostrix (Tetanus toxoid, reduced diphtheria toxoid and acellular pertussis vaccine, adsorbed), booster Boostrix [HBC553] tetanus toxoid, reduced diphtheria toxoid, and acellular [...] PANEL - Chemistry cholesterol, serum 166 mg/dL 709-694 8035/12/06 triglyceride, serum, fasting 86 mg/dL 30-200 HDL [...] Negative mg/dL Negative sodium, serum 142 mmol/L 743-221 1803/07/18 carbon dioxide, venous blood 27.8 mmol/L 21.0-32.0 [...] negative Encounters Code Encounter Date Provider Facility CPT-52819 Level 3 Est. Patient 14:46:09 CDT Tisha Lambert [employer] [facility] CPT-57855 Level 4 New Patient 16:13:15 CDT Todd Callaway MD [facility] CPT-04605 Level 4 Est. Patient 13:18:33 CDT Gab Padron MD [facility] CPT-89894 Level 3 Est. Patient 15:20:50 CDT Jared Og MD [facility] CPT-94437 Level 3 Est. Patient 17:43:55 [employer] Gab Padron MD [facility] CPT-47125 Level 3 Est. Patient 17:07:49 [employer] Jared Og MD [facility] CPT-30151 Level 4 Est. Patient 19:55:18 [employer] Jared Og MD [facility] CPT-08151 Level 3 Est. Patient 20:13:34 [employer] Jared Og MD [facility] CPT-50380 Level 4 Est. Patient 16:31:27 CDT Gab Padron MD [facility] CPT-93270 Level 2 Est. Patient 12:23:38 CDT Jared Og MD [facility] CPT-77100 Level 3 Est. Patient 11:01:51 CDT Gab Padron MD [facility] CPT-11628 Level 3 Est. Patient 15:27:02 CDT Jared Og MD [facility] [place] CPT-93357 Level 4 Est. Patient 09:25:27 CDT Gab Padron MD [facility] CPT-90584 Level 3 Est. Patient 10:29:41 CDT Rodrigo Sarah APRN [facility] CPT-95431 Level 4 Est. Patient 17:51:05 CDT Gab Padron MD [facility] CPT-07318 Level 3 Est. Patient 14:18:08 CDT Gab Padron MD [facility] CPT-69961 Level 4 Est. Patient 10:18:54 CDT Gab Padron MD [facility] CPT-19226 Level 3 Est. Patient 11:30:07 CDT Rodrigo Sarah APRN [facility]-98884 Level 4 Est. Patient 21:02:30 [employer] Gab Padron MD [facility]-19605 Level 3 Est. Patient 11:02:19 TE[employer] Gab Padron MD [facility]-43756 Level 4 Est. Patient 22:24:31 [employer] Gab Padron MD [facility]-88757 Level 3 Est. Patient 18:33:46 [employer] Gab Padron MD [facility]-07010 Level 3 Est. Patient 16:19:11 CDT Yolande Lindsay MD [facility]-60864 Level 3 Est. Patient 18:59:14 CDT Yolande Lindsay MD [facility]-12981 Level 4 Est. Patient 21:29:26 CDT Yolande Lindsay MD [facility]-64476 Level 3 Est. Patient 07:37:45 CDT Yolande Lindsay MD [facility]-88717 Level 3 Est. Patient 17:03:46 CDT Yolande Lindsay MD [facility]-55025 Level 4 Est. Patient 20:02:13 [employer] Yolande Lindsay MD PhD [facility]-43429 Level 3 Est. Patient 16:02:07 [employer] Alexis Ordaz MD [facility]-36318 Level 3 Est. Patient 12:41:24 [employer] Yolande Lindsay MD PhD [facility]-06548 Level 3 Est. Patient 15:41:20 [employer] Yolande Lindsay MD [facility]-97035 Level 3 Est. Patient 13:20:02 [employer] Yolande Lindsay MD [facility] CPT-57385 Level 3 Est. Patient 15:00:38 CDT Jared Og MD [facility] CPT-36757 Level 3 Est. Patient 10:22:32 CDT Yolande Lindsay MD [facility] CPT-51303 Level 3 Est. Patient 17:12:58 CDT Yolande Lindsay MD [facility] CPT-13717 Level 4 Est. Patient 13:30:58 CDT Yolande Lindsay MD [facility] CPT-00981 Level 4 New Patient 09:02:42 CDT Jared Og MD [facility]-32551 Level 3 Est. Patient 08:19:07 CDT Yolande Lindsay MD [facility]-15005 Level 3 Est. Patient 12:00:13 TE[employer] Gab Padron MD [facility] CPT-00822 Level 3 Est. Patient 16:15:23 TE[employer] Yolande Lindsay MD [facility] CPT-30840 Level 2 Est. Patient 19:47:15 CDT Yolande Lindsay MD [facility]-61460 Level 3 Est. Patient 21:38:31 CDT Yolande Lindsay MD [facility] CPT-38930 Level 3 Est. Patient 10:25:12 CDT Adiel PERAZA [facility] CPT-10517 Level 4 Est. Patient 10:51:58 CDT Yolande Lindsay MD [facility]-54947 Level 3 Est. Patient 14:04:55 [employer] Rodrigo Sarah [facility] CPT-82273 Level 3 Est. Patient 10:46:35 [employer] Rodrigo Sarah [facility] CPT-26870 Level 3 Est. Patient 14:24:37 [employer] Yolande Lindsay MD [facility] CPT-18141 Level 3 Est. Patient 17:41:58 TE[employer] Yolande Lindsay MD [facility]-71180 Level 2 Est. Patient 22:01:41 TE[employer] Rodrigo Sarah [facility] CPT-99663 Level 2 Est. Patient 22:01:11 TE[employer]ATE Rodrigo Sarah [facility] CPT-35706 Level 3 Est. Patient 10:12:29 TE[employer] Rodrigo Sarah [facility] CPT-24161 Level 3 Est. Patient 11:05:44 CDT Alexis Ordaz MD [facility] CPT-06491 Level 3 Est. Patient 14:57:20 CDT Yolande Lindsay MD [facility] CPT-04127 Level 3 Est. Patient 14:40:57 CDT Yolande Lindsay MD [facility] CPT-29697 Level 3 Est. Patient 20:55:40 CDT Yolande Lindsay MD [facility]-78853 Level 3 Est. Patient 12:42:38 TE[employer] Yolande Lindsay MD [facility]-25113 Level 3 Est. Patient 11:54:49 TE[employer] Des Hines MD [facility]-98180 Level 3 Est. Patient 17:06:38 CDT Dewayne PERAZA [facility] Procedures Code Procedure Name Date Entry Date Standard Description CPT-J2930 Solu Medrol 125 mg (Methyl Prednisolone Sodium Succinate) 13:19:02 CDT CPT-65368 Abx/Therapy Injection 13:19:02 CDT CPT-J2930 Solu Medrol 125 mg (Methyl Prednisolone Sodium Succinate) 13:05:03 CDT CPT-68163 Hip, complete, 2-3 views - XRAY USE ONLY 17:19:04 [employer] CPT-03907 Venipuncture Draw Fee 08:37:59 [employer] CPT-75461 Liver Profile - LAB USE ONLY 08:37:59 [employer] CPT-00901 Lipid - LAB USE ONLY 08:37:58 [employer] CPT-85430 First Vx - Ix admin via ID IM or jet injects without counseling by physician 11:52:31 CDT CPT-84168 Fluzone Preservative Free Intramuscular Suspension 11:52 :31 CDT CPT-54764 Foot, left, comp min 3V - XRAY USE ONLY 09:24:54 CDT CPT-03548 Abd single AP View - XRAY USE ONLY 11:16:17 CDT CPT-59573 T spine AP/ Lat - XRAY USE ONLY 09:34:21 CDT CPT-55692 Chest 2V Frontal and Lat - XRAY USE ONLY 10:48:51 CDT CPT-17203 LS spine comp w obliq 13:28:00 [employer] CPT-J1040 Depo Medrol 80 mg (Methyl Prednisolone Acetate) 10:51: 28 [employer] CPT-J1100 Decadron 8mg (Dexamethasone) 10:51:28 TE[employer]ER [employer] CPT-76598 Abx/Therapy Injection 10:51:28 TESTER WAFER [employer]STRATE CPT-J1100 Decadron 8mg (Dexamethasone) 21:02:30 TE[employer]AFER [employer] CPT-J1040 Depo Medrol 80 mg (Methyl Prednisolone Acetate) 21:02: 30 [employer] [id number] Event Monitor - MC Transmission 09:12:32 CDT 08/06 [id number] Event Monitor - MC review and interp 09:12:32 CDT [id number] Event Monitor - MC recording 09:12:32 CDT CPT-48329 EKG Trac and Interp 16:50:22 CDT CPT-J1030 Depo Medrol 40 mg (Methyl Prednisolone Acetate) 17:05: 54 CDT CPT-J1100 Decadron 4mg (Dexamethasone) 17:05:54 CDT CPT-38908 Abx/Therapy Injection 17:05:54 CDT CPT-J1100 Decadron 4mg (Dexamethasone) 16:55:28 CDT CPT-J1030 Depo Medrol 40 mg (Methyl Prednisolone Acetate) 16:55: 28 CDT CPT-40627 Ankle Complete - Min 3V 15:58:50 CDT CPT-69407 Knee 3V 15:58:50 CDT CPT-70438 Hip comp min 2V 15:58:50 CDT CPT-J2270 Morphine Sulfate 10 mg 14:25:44 TE[employer] CPT-J2550 Phenergan 12.5 mg (Promethazine) 14:25:44 TE[employer] CPT-34566 Abx/Therapy Injection 14:25:44 TESTER [employer]AFER [employer]ATE CPT-J2550 Phenergan 12.5 mg (Promethazine) 14:08:03 TESTER [employer]AFER [employer]STRATE CPT-J2270 Morphine Sulfate 10 mg 14:08:03 TE[employer]ER [employer] CPT-66183 Bladder Scan 15:00:38 CDT CPT-TCMM Transitional Care Mgmt-Moderate 09:52:22 CDT CPT-J1030 Depo Medrol 40 mg (Methyl Prednisolone Acetate) 10:55: 18 CDT CPT-J1100 Decadron 4mg (Dexamethasone) 10:55:18 CDT CPT-10619 Abx/Therapy Injection 10:55:18 CDT CPT-J1030 Depo Medrol 40 mg (Methyl Prednisolone Acetate) 10:22: 32 CDT CPT-J1100 Decadron 4mg (Dexamethasone) 10:22:32 CDT CPT-91437 Postop F/U Visit 14:37:13 CDT CPT-55739 Ankle Complete - Min 3V 17:11:58 CDT CPT-14160 Foot comp min 3V 17:11:58 CDT CPT-47736 Bladder Scan 09:56:58 CDT CPT-23291 Postop F/U Visit 09:56:58 CDT CPT-38907 Cystoscopy 09:02:42 CDT CPT-32683 Bladder Scan 09:02:42 CDT CPT-60309 Abd single AP View 16:00:35 CDT CPT-24839 Administration single or combination vaccine inc oral 10 :15:43 CDT CPT-43551 Influenza split virus > age 3 10:15:43 CDT CPT-16395 Nail Avulsion 09:24:57 CDT CPT-OV Office Visit 11:15:41 CDT CPT-77965 Abx/Therapy Injection 10:51:30 CDT CPT-J3301 Kenalog 40 mg (Triamcinolone Acetonide) 10:25:12 CDT CPT-J1100 Decadron 4mg (Dexamethasone) 10:25:12 CDT CPT-42719 Anoscopy diagnostic 10:36:12 CDT CPT-OV Office Visit 15:34:31 CDT CPT-60438 Abx/Therapy Injection 08:21:15 TESTER WAFER [employer]STRATE CPT-J1885 Toradol 60 mg (Ketorolac) 10:46:35 TE[employer]AF[employer]ATE CPT-OV Office Visit 19:51:16 TE[employer] CPT-88855 Spec Collection and Handling Fee 14:34:18 TE[employer] CPT-PV Prev. Care Visit 14:19:18 TESTER WAF[employer]STRATE CPT-01616 Postop F/U Visit 14:47:51 TE[employer] CPT-19744 Postop F/U Visit 15:15:14 TE[employer]STRATE CPT-04611 Postop F/U Visit 14:41:43 CDT CPT-56792 Postop F/U Visit 15:47:46 CDT CPT-OV Office Visit 15:27:23 CDT CPT-OV Office Visit 17:20:34 CDT CPT-05848 Abx/Therapy Injection 15:05:57 CDT CPT-J1100 Decadron 8mg (Dexamethasone) 14:44:57 CDT CPT-J1040 Depo Medrol 80 mg (Methyl Prednisolone Acetate) 14:44: 57 CDT CPT-JTINJ Joint Injection 10:17:37 CDT CPT-39965 Administration 2+ single or combination vaccines inc oral 13:01:46 TESTER WAF[employer]ATE CPT-83569 Administration single or combination vaccine inc oral 13 :01:46 TESTER WAFER [employer]STRATE CPT-30401 Pneumovax 13:01:46 TESTER WAFER [employer]STRATE CPT-79132 Influenza split virus > age 3 13:01:46 TESTER WAF[employer]STRATE CPT-91298 Administration single or combination vaccine inc oral 08 :56:49 CDT CPT-86172 Tdap 08:56:49 CDT
--- OUTSIDE RECORDS SUMMARY | 2017-03-22 00:03 | XMS REPORT ---
Author Author [facility] [employer] [facility] Medical Staff Organization [facility] Address [address] [id number] Phone [phone] Care Team Providers Care Water Attendant Name Role Phone LENKA HUTSON, EUNICE PP [phone] Summary purpose TRANSITION OF CARE AUTO GENERATION [...]
--- OUTSIDE RECORDS SUMMARY | 2017-03-22 00:05 | XMS REPORT | Clinical Summary ---
Author Author Admin, MARGRET Organization [employer] Address Unknown Phone Unavailable Allergies, Adverse Reactions, Alerts Allergy Name Reaction Description Start Date Severity Status Provider VALENTIN Critical Active Rodrigo Montemayorl STUDENT EDUCATION SPECIALIST CHLORHEXIDINE GLUCONATE tongue and gums swollen Critical Active Hoa Kabaford RMA NORFLEX Rash Critical Active Silvestrellina Frazell STUDENT EDUCATION SPECIALIST TRAZODONE HCL sees things Critical Active [...] of 412 Active Hoa Otto [facility] Old myocardial infarction Pelvic pain 789.09 Active Yolande Lindsay MD PhD Abdominal pain, other specified site; multiple sites Edema 782.3 Active Yolande Lindsay MD PhD Edema Rash 782.1 Active Yolande Lindsay MD PhD Rash and other nonspecific skin eruption Back pain, lumbar 724.2 Active Gab Padron MD Lumbago Cough 786.2 Active Jillina Tyrel STUDENT EDUCATION SPECIALIST Cough 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 Jillina Frazellilian STUDENT EDUCATION SPECIALIST 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 Anemia 285.9 Active Gab Padron MD Anemia, unspecified Conjunctivitis 372.30 Active Jillina Tyrel STUDENT EDUCATION SPECIALIST Conjunctivitis, unspecified Sinusitis 473.9 Active Jillina Frazell STUDENT EDUCATION SPECIALIST Unspecified sinusitis (chronic) Nonspecific syndrome suggestive of viral illness 079.99 Active Rodrigo Sarah APRN Unspecified viral infection Laryngitis 464.00 Active Jillina Tyrel STUDENT EDUCATION SPECIALIST Acute laryngitis without mention of obstruction Abdominal [...] every 6 hrs prn pain TRAMADOL HCL 55592125228 Active Gab Padron MD Active PREDNISONE 20 MG TAB 2 tabs daily for 3 days, 1 tab daily for 3 days, 1/2 tab daily for 2 days PREDNISONE 61403136818 No Longer Active Gab Padron MD Active ZOFRAN ODT 4 MG TBDP 1 po q6hr PRN Nausea ONDANSETRON 15209565730 Active Gab Padron MD Active IBUPROFEN 600 MG TAB 1 tablet by mouth every 6 hours for 7 days, then 1 tablet every 6 hours as needed. Take with food IBUPROFEN 64659985130 Active Jillina Frazell STUDENT EDUCATION SPECIALIST Active BACTRIM DS 800-160 MG TAB 1 tab by mouth twice daily TRIMETHOPRIM-SULFAMETHOXAZOLE 25695798681 No Longer Active Gab Padron MD Active ADVAIR DISKUS 250-50 MCG/DOSE AEPB 1 puff BID FLUTICASONE- SALMETEROL 04007484813 Active Silvestrellnacho Sarah APRN Active LEVOTHYROXINE SODIUM 75 MCG TABS Take 1 tab daily LEVOTHYROXINE SODIUM 40747309823 No Longer Active Mariana Cuadra [facility] Active SYNTHROID 88 MCG ORAL TABS Take one by mouth daily LEVOTHYROXINE SODIUM 98110390782 Active Gab Padron MD Active CHERATUSSIN AC 100-10 MG/5ML SYRP 1 tsp by mouth every 4 hours as needed for cough GUAIFENESIN-CODEINE 94522716644 No Longer Active Gab Padron MD Active POLYTRIM 43247-4.1 UNIT/ML-% SOLN 1 gtt to affected eye q3h x 7 days POLYMYXIN B-TRIMETHOPRIM 31894476556 No Longer Active Gab Padron MD Active FLUTICASONE PROPIONATE 50 MCG/ACT SUSP 1 to 2 sprays each nostril daily 04/21 FLUTICASONE PROPIONATE 89402044179 No Longer Active Gab Padron MD Active TRILEPTAL 600 MG TABS Take one 1 tablet in Am and 1 tablet at night OXCARBAZEPINE 20514427790 Active Gab Padron MD Active CEFDINIR 300 MG CAPS 1 po BID x 10 days CEFDINIR 57523489685 No Longer Active Rodrigo Sarah APRN Active CEFTIN 500 MG TAB 1 twice a day CEFUROXIME AXETIL 37049609610 No Longer Active Gab Padron MD Active AZITHROMYCIN 250 MG TABS 2 po qd x 1 day, then 1 po qd x 4 days AZITHROMYCIN 97655756279 No Longer Active Rodrigo Sarah APRN Active CLARITIN 10 MG TAB 1 tablet by mouth daily as needed for allergies LORATADINE 32862364278 Active Rodrigo Sarah APRN Active OXYCODONE HCL 5 MG ORAL CAPS 1 TAB PO Q HS OXYCODONE HCL 91983306184 No Longer Active Rodrigo Sarah APRN Active NIASPAN 500 MG ORAL CR-TABS 1 pill nightly x 1 week, then 2 pills nightly x 1 week, then 3 pills nightly x 1 week, then 4 pills nightly NIACIN (ANTIHYPERLIPIDEMIC) 33925252071 No Longer Active Rodrigo Sarah APRN Active NIACIN 500 MG TABS 1 pill by mouth nightly x 1 week, then 2 pills x 1 week, then 3 pills x 1 week, then 4 pills nightly - take after evening meal, with applesauce or an apple NIACIN 29677402428 No Longer Active Yolande Lindsay MD PhD Active FISH OIL 1000 MG CAPS 3 pills daily OMEGA-3 FATTY ACIDS 92936955063 Active Yolande Lindsay MD PhD Active TRIAMCINOLONE ACETONIDE 0.1 % CREA apply bid sparingly to rash TRIAMCINOLONE ACETONIDE 95925086365 Active Yolande Lindsay MD PhD Active FUROSEMIDE 20 MG TAB 1 tablet by mouth daily FUROSEMIDE 23400689714 Active Tisha Lambert APRN Active LISINOPRIL 20 MG ORAL TABS 1 tab by mouth daily LISINOPRIL 32354658236 Active Tisha Lambert APRN Active FUROSEMIDE 20 MG TABS 1 pill by mouth daily, for edema FUROSEMIDE 69500002163 No Longer Active Yolande Lindsay MD PhD Active ATORVASTATIN CALCIUM 10 MG TABS 1 pill by mouth daily, for cholesterol 09/06 ATORVASTATIN CALCIUM 86099170004 Active Gab Padron MD Active CALCIUM 600+D PLUS MINERALS 600-400 MG-UNIT ORAL CHEW 1 tab by mouth daily CALCIUM CARBONATE-VIT D-MIN 99750152181 No Longer Active Yolande Lindsay MD PhD Active CYCLOBENZAPRINE HCL 10 MG TABS 1 tablet by mouth three times daily as needed for muscle spasm/pain CYCLOBENZAPRINE HCL 15272092554 Active Yolande Lindsay MD PhD Active ONDANSETRON 4 MG TBDP 1 q4h PRN nausea ONDANSETRON 24917009054 Active Yolande Lindsay MD PhD Active ADULT ASPIRIN EC LOW STRENGTH 81 MG TBEC Take 1 tablet by mouth daily 2014 ASPIRIN 71813636464 No Longer Active Yolande Lindsay MD PhD Active ZOFRAN ODT 4 MG TBDP 1 pill dissolved by mouth every 4 hours if needed for nausea ONDANSETRON 14092547038 No Longer Active Yolande Lindsay MD PhD Active CEFTIN 500 MG TAB 1 twice a day CEFUROXIME AXETIL 02270428241 No Longer Active Yolande Lindsay MD PhD Active ALBUTEROL SULFATE 0.083 % NEBU SOLN one vial per nebulizer every 4-6 hours as needed ALBUTEROL SULFATE 40682185065 No Longer Active Alexis Ordaz MD Active DOXYCYCLINE HYCLATE 100 MG CAP 1 cap by mouth twice daily DOXYCYCLINE HYCLATE 98515441858 No Longer Active Yolande Lindsay MD PhD Active CYCLOBENZAPRINE HCL 10 MG TABS 1/2 - 1 tab by mouth three times daily if needed for spasms/pain CYCLOBENZAPRINE HCL 37369295284 No Longer Active Yolande Lindsay MD PhD Active AZITHROMYCIN 250 MG TABS 2 pills on day 1, then 1 pill daily x 4 days AZITHROMYCIN 72834495006 No Longer Active Yolande Lindsay MD PhD Active XOPENEX 1.25 MG/3ML NEBU 1 neb every 4 hours if needed for cough/congestion LEVALBUTEROL HCL 44448349401 No Longer Active Yolande Lindsay MD PhD Active DOXYCYCLINE HYCLATE 100 MG TAB 1 tab twice a day for 14 days 2013 DOXYCYCLINE HYCLATE 36076492880 No Longer Active Yolande Lindsay MD PhD Active PREVACID 30 MG CPDR Take 1 tablet by mouth daily-PRN LANSOPRAZOLE 74684731767 No Longer Active Yolande Lindsay MD PhD Active PA VITAMIN D-3 2000 UNIT CAPS 1 CAP PO DAILY CHOLECALCIFEROL 94447600512 No Longer Active Yolande Lindsay MD PhD Active CEFDINIR 300 MG CAPS by mouth twice a day CEFDINIR 33534960235 No Longer Active Gab Padron MD Active TOPAMAX 50 MG TABS 1 PO twice daily TOPIRAMATE 65032046811 Active Yolande Lindsay MD PhD Active AZITHROMYCIN 250 MG TABS 2 po qd x 1 day, then 1 po qd x 4 days AZITHROMYCIN 64992792042 No Longer Active Yolande Lindsay MD PhD Active DICLOFENAC SODIUM 75 MG TBEC 1 tablet by q 12 hours PRN headaches DICLOFENAC SODIUM 75507574047 No Longer Active Yolande Lindsay MD PhD Active FLONASE 50 MCG/ACT SUSP 1 spray each nostril am and hs FLUTICASONE PROPIONATE 54501550512 No Longer Active Todd Callaway MD Active ANUSOL-HC 25 MG SUPPOSITORY 1 rectally twice a day as needed for hemorrhoids HYDROCORTISONE JAYDEN (RECTAL) 45876439183 No Longer Active Yolande Lindsay MD PhD Active ANUSOL-HC 25 MG SUPPOSITORY 1 suppository rectally each evening as needed for anal fissure HYDROCORTISONE JAYDEN (RECTAL) 61151119994 No Longer Active SoudertonLONNIE Collazo Active VALIUM 5 MG TAB 1 po 30 minutes prior to your MRI DIAZEPAM 71878553757 No Longer Active Bozena LONNIE Coleman Active METHOCARBAMOL 750 MG TABS 1 PO QID PRN METHOCARBAMOL 26723604871 No Longer Active Daphne Wetzel STUDENT EDUCATION SPECIALIST Active NITROSTAT 0.4 MG SUBL as directed NITROGLYCERIN 26921105916 No Longer Active Rodrigo Sarah STUDENT EDUCATION SPECIALIST Active ROBAXIN-750 750 MG TABS 2 four times a day for 3 days as needed for muscle spasm, then 1 four times a day as needed METHOCARBAMOL 91906718442 No Longer Active Rodrigo Sarah APRN Active HYDROCODONE-ACETAMINOPHEN 5-325 MG TABS 1 q 4-6 hrs prn HYDROCODONE-ACETAMINOPHEN 46410401459 No Longer Active Rodrigo Sarah APRN Active VERAPAMIL HCL CR 180 MG CR-TABS TAKE 1 TAB DAILY VERAPAMIL HCL 57445528088 No Longer Active Yolande Lindsay MD PhD Active BACTRIM DS 800-160 MG TAB 1 tab by mouth twice daily TRIMETHOPRIM-SULFAMETHOXAZOLE 29813406657 No Longer Active Yolande Lindsay MD PhD Active NEXIUM 40 MG PACK 1 by mouth daily ESOMEPRAZOLE MAGNESIUM 61406829585 No Longer Active Des Hines MD Active EPIPEN 2-CHARLETTE 0.3 MG/0.3ML OMARI as need for allergic reaction EPINEPHRINE 25738745207 Active Yolande Lindsay MD PhD Active NEXIUM 40 MG CPDR 1 PO Q D DAY ESOMEPRAZOLE MAGNESIUM 60983993793 No Longer Active Sadia Perry RN Active NEXIUM 40 MG PACK 1 by mouth daily NEXIUM 40 MG PACK ESOMEPRAZOLE MAGNESIUM Inactive VERAPAMIL HCL CR 180 MG CR-TABS TAKE 1 TAB DAILY VERAPAMIL HCL CR 180 MG CR-TABS VERAPAMIL HCL Inactive HYDROCODONE-ACETAMINOPHEN 5-325 MG TABS 1 q 4-6 hrs prn HYDROCODONE-ACETAMINOPHEN 5-325 MG TABS 961120 HYDROCODONE-ACETAMINOPHEN Inactive ROBAXIN-750 750 MG TABS 2 four times a day for 3 days as needed for muscle spasm, then 1 four times a day as needed ROBAXIN-750 750 MG TABS 013379 METHOCARBAMOL Inactive NITROSTAT 0.4 MG SUBL as directed NITROSTAT 0.4 MG SUBL 241701 NITROGLYCERIN Inactive METHOCARBAMOL 750 MG TABS 1 PO QID PRN METHOCARBAMOL 750 MG TABS 738442 METHOCARBAMOL Inactive VALIUM 5 MG TAB 1 po 30 minutes prior to your MRI VALIUM 5 MG TAB 901093 DIAZEPAM Inactive ANUSOL-HC 25 MG SUPPOSITORY 1 suppository rectally each evening as needed for anal fissure ANUSOL-HC 25 MG SUPPOSITORY 3047297 HYDROCORTISONE JAYDEN (RECTAL) Inactive ANUSOL-HC 25 MG SUPPOSITORY 1 rectally twice a day as needed for hemorrhoids ANUSOL-HC 25 MG SUPPOSITORY 6357139 HYDROCORTISONE JAYDEN (RECTAL) Inactive FLONASE 50 MCG/ACT SUSP 1 spray each nostril am and hs FLONASE 50 MCG/ACT SUSP FLUTICASONE PROPIONATE Inactive DICLOFENAC SODIUM 75 MG TBEC 1 tablet by q 12 hours PRN headaches DICLOFENAC SODIUM 75 MG TBEC 199228 DICLOFENAC SODIUM Inactive PA VITAMIN D-3 2000 UNIT CAPS 1 CAP PO DAILY PA VITAMIN D-3 2000 UNIT CAPS CHOLECALCIFEROL Inactive PREVACID 30 MG CPDR Take 1 tablet by mouth daily-PRN PREVACID 30 MG CPDR 154440 LANSOPRAZOLE Inactive DOXYCYCLINE HYCLATE 100 MG TAB 1 tab twice a day for 14 days 2013 DOXYCYCLINE HYCLATE 100 MG TAB 8647095 DOXYCYCLINE HYCLATE Inactive XOPENEX 1.25 MG/3ML NEBU 1 neb every 4 hours if needed for cough/congestion XOPENEX 1.25 MG/3ML NEBU 216438 LEVALBUTEROL HCL Inactive CYCLOBENZAPRINE HCL 10 MG TABS 1/2 - 1 tab by mouth three times daily if needed for spasms/pain CYCLOBENZAPRINE HCL 10 MG TABS 221726 CYCLOBENZAPRINE HCL Inactive ALBUTEROL SULFATE 0.083 % NEBU SOLN one vial per nebulizer every 4-6 hours as needed ALBUTEROL SULFATE 0.083 % NEBU SOLN 942223 ALBUTEROL SULFATE Inactive CEFTIN 500 MG TAB 1 twice a day CEFTIN 500 MG TAB 795321 CEFUROXIME AXETIL Inactive ZOFRAN ODT 4 MG TBDP 1 pill dissolved by mouth every 4 hours if needed for nausea ZOFRAN ODT 4 MG TBDP 742001 ONDANSETRON Inactive ADULT ASPIRIN EC LOW STRENGTH 81 MG TBEC Take 1 tablet by mouth daily 2014 ADULT ASPIRIN EC LOW STRENGTH 81 MG TBEC 522990 ASPIRIN Inactive CALCIUM 600+D PLUS MINERALS 600-400 [...] or an apple NIACIN 500 MG TABS 456626 NIACIN Inactive NIASPAN 500 MG ORAL CR-TABS 1 pill nightly x 1 week, then 2 pills nightly x 1 week, then 3 pills nightly x 1 week, then 4 pills nightly NIASPAN 500 MG ORAL CR-TABS NIACIN (ANTIHYPERLIPIDEMIC) Inactive OXYCODONE HCL 5 MG ORAL CAPS 1 TAB PO Q HS OXYCODONE HCL 5 MG ORAL CAPS 4941740 OXYCODONE HCL Inactive FLUTICASONE PROPIONATE 50 MCG/ACT SUSP 1 to 2 sprays each nostril daily 04/21 FLUTICASONE PROPIONATE 50 MCG/ACT SUSP 2617447 FLUTICASONE PROPIONATE Inactive POLYTRIM 82992-8.1 UNIT/ML-% SOLN 1 gtt to affected eye q3h x 7 days POLYTRIM 33895-8.1 UNIT/ML-% SOLN 984214 POLYMYXIN B- TRIMETHOPRIM Inactive CHERATUSSIN AC 100-10 MG/5ML SYRP 1 tsp by mouth every 4 hours as needed for cough CHERATUSSIN AC 100-10 MG/5ML SYRP 421307 GUAIFENESIN-CODEINE Inactive LEVOTHYROXINE SODIUM 75 MCG TABS Take 1 tab daily LEVOTHYROXINE SODIUM 75 MCG TABS 556791 LEVOTHYROXINE SODIUM Inactive BACTRIM DS 800-160 MG TAB 1 tab by mouth twice daily BACTRIM DS 800-160 MG TAB 460365 TRIMETHOPRIM-SULFAMETHOXAZOLE Inactive AZITHROMYCIN 250 MG TABS 2 po qd x 1 day, then 1 po qd x 4 days AZITHROMYCIN 250 MG TABS 8056145 AZITHROMYCIN Inactive CEFDINIR 300 MG CAPS by mouth twice a day CEFDINIR 300 MG CAPS 397320 CEFDINIR Inactive AZITHROMYCIN 250 MG TABS 2 pills on day 1, then 1 pill daily x 4 days AZITHROMYCIN 250 MG TABS 3194268 AZITHROMYCIN Inactive DOXYCYCLINE HYCLATE 100 MG CAP 1 cap by mouth twice daily DOXYCYCLINE HYCLATE 100 MG CAP 1013215 DOXYCYCLINE HYCLATE Inactive FUROSEMIDE 20 MG TABS 1 pill by mouth daily, for edema FUROSEMIDE 20 MG TABS 948743 FUROSEMIDE Inactive AZITHROMYCIN 250 MG TABS 2 po qd x 1 day, then 1 po qd x 4 days AZITHROMYCIN 250 MG TABS 9165145 AZITHROMYCIN Inactive CEFTIN 500 MG TAB 1 twice a day CEFTIN 500 MG TAB 431678 CEFUROXIME AXETIL Inactive CEFDINIR 300 MG CAPS 1 po BID x 10 days CEFDINIR 300 MG CAPS 291530 CEFDINIR Inactive BACTRIM DS 800-160 MG TAB 1 tab by mouth twice daily BACTRIM DS 800-160 MG TAB 295078 TRIMETHOPRIM-SULFAMETHOXAZOLE Inactive PREDNISONE 20 MG TAB 2 tabs daily for 3 days, 1 tab daily for 3 days, 1/2 tab daily for 2 days PREDNISONE 20 MG TAB 745122 PREDNISONE Inactive Immunizations Vaccine Administration Date Value Standard Description Seasonal influenza vaccine, injectable, containing preservative, for > 3 years old (Afluria, FluLaval, Fluzone, Fluvirin, Fluarix, Agriflu(>=18 yo)) Fluzone (>3 yrs.) [BCO114] Influenza, seasonal, injectable influenza immunization (Flu Vax) has been administered Influenza - Unspecified Formulation [CVX88] influenza virus vaccine, unspecified formulation Seasonal influenza vaccine, injectable, containing preservative, for > 3 years old (Afluria, FluLaval, Fluzone, Fluvirin, Fluarix, Agriflu(>=18 yo)) Fluzone (>3 yrs.) [AQW603] Influenza, seasonal, injectable pneumococcal immunization administered Pneumovax 23 [CVX33] pneumococcal polysaccharide vaccine, 23 valent dT (Diphtheria and Tetanus) booster given given Td(adult) unspecified formulation Boostrix (Tetanus toxoid, reduced diphtheria toxoid and acellular pertussis vaccine, adsorbed), booster Boostrix [MUT272] tetanus toxoid, reduced diphtheria toxoid, and acellular [...] Panel - Chemistry sodium, serum 142 mmol/L 975-930 8184/06/30 potassium, serum 4.4 mmol/L 3.5-5.2 chloride, serum [...] Rate - Chemistry sodium, serum 139 mmol/L 472-004 0806/03/24 carbon dioxide, venous blood 22.4 mmol/L 21.0-32.0 [...] ... - Chemistry sodium, serum 143 mmol/L 893-987 0530/05/02 carbon dioxide, venous blood 25.6 mmol/L 21.0-32.0 [...] PANEL - Chemistry cholesterol, serum 166 mg/dL 707-611 0417/12/06 triglyceride, serum, fasting 86 mg/dL 30-200 HDL [...] Negative mg/dL Negative sodium, serum 142 mmol/L 976-917 1666/07/18 carbon dioxide, venous blood 27.8 mmol/L 21.0-32.0 [...] negative Encounters Code Encounter Date Provider Facility CPT-70853 Level 3 Est. Patient 17:43:55 [employer]LE[employer]IA PERSONALITY Gab Padron MD [facility] CPT-63903 Level 3 Est. Patient 17:07:49 [employer]IA PERSONALITY Jared Og MD [facility] CPT-38318 Level 4 Est. Patient 19:55:18 [employer]LE[employer]IA PERSONALITY Jared Og MD [facility] CPT-54365 Level 3 Est. Patient 20:13:34 [employer]LEBRITY [employer] E[employer]REPRENEUR MEDIA PERSONALITY Jared Og MD [facility] CPT-52761 Level 4 Est. Patient 16:31:27 CDT Gab Padron MD [facility] CPT-25999 Level 2 Est. Patient 12:23:38 CDT Jared Og MD [facility] CPT-89865 Level 3 Est. Patient 11:01:51 CDT Gab Padron MD [facility] CPT-48277 Level 3 Est. Patient 15:27:02 CDT Jared Og MD [facility] CPT-42987 Level 4 Est. Patient 09:25:27 CDT Gab Padron MD [facility] CPT-31322 Level 3 Est. Patient 10:29:41 CDT Rodrigo Sarah [facility] CPT-14076 Level 4 Est. Patient 17:51:05 CDT Gab Padron MD [facility] CPT-27629 Level 3 Est. Patient 14:18:08 CDT Gab Padron MD [facility] CPT-03295 Level 4 Est. Patient 10:18:54 CDT Gab Padron MD [facility] CPT-84437 Level 3 Est. Patient 11:30:07 CDT Rodrigo Sarah [facility] CPT-70659 Level 4 Est. Patient 21:02:30 [employer]IA PERSONALITY Gab Padron MD [facility] CPT-30359 Level 3 Est. Patient 11:02:19 [employer]LEBR[employer] E[employer]RE[employer]UR MEDIA PERSONALITY Gab Padron MD [facility] CPT-02341 Level 4 Est. Patient 22:24:31 CELEBRITY [employer] E[employer]REPRENEUR MEDIA PERSONALITY [facility] Level 3 Est. Patient 18:33:46 [employer]LEBR[employer] E[employer]RE[employer]UR [employer]IA PERSONALITY Gab Padron MD [facility]-02738 Level 3 Est. Patient 16:19:11 CDT Yolande Lindsay MD [facility]-39100 Level 3 Est. Patient 18:59:14 CDT Yolande Lindsay MD [facility]-48598 Level 4 Est. Patient 21:29:26 CDT Yolande Lindsay MD [facility]-50062 Level 3 Est. Patient 07:37:45 CDT Yolande Lindsay MD [facility]-82460 Level 3 Est. Patient 17:03:46 CDT Yolande Lindsay MD [facility]-39652 Level 4 Est. Patient 20:02:13 [employer] PERSONALITY Yolande Lindsay MD [facility]-33882 Level 3 Est. Patient 16:02:07 [employer]IA PERSONALITY Alexis Ordaz MD [facility]-96424 Level 3 Est. Patient 12:41:24 [employer] PERSONALITY Yolande Lindsay MD [facility]-47265 Level 3 Est. Patient 15:41:20 [employer]IA PERSONALITY Yolande Lindsay MD [facility]-98562 Level 3 Est. Patient 13:20:02 [employer]LE[employer]UR [employer]IA PERSONALITY Yolande Lindsay MD [facility]-72731 Level 3 Est. Patient 15:00:38 CDT Jared Og MD [facility]-05433 Level 3 Est. Patient 10:22:32 CDT Yolande Lindsay MD [facility]-79203 Level 3 Est. Patient 17:12:58 CDT Yolande Lindsay MD [facility]-51220 Level 4 Est. Patient 13:30:58 CDT Yolande Lindsay MD PhD [facility] CPT-43202 Level 4 New Patient 09:02:42 CDT Jared Og MD [facility]-20140 Level 3 Est. Patient 08:19:07 CDT Yolande Lindsay MD [facility]-69432 Level 3 Est. Patient 12:00:13 [employer]IA PERSONALITY Gab Padron MD [facility]-79056 Level 3 Est. Patient 16:15:23 [employer]LE[employer]IA PERSONALITY Yolande Lindsay MD [facility]-43074 Level 2 Est. Patient 19:47:15 CDT Yolande Lindsay MD [facility]-31805 Level 3 Est. Patient 21:38:31 CDT Yolande Lindsay MD [facility]-83872 Level 3 Est. Patient 10:25:12 CDT Adiel PERAZA [facility] CPT-18715 Level 4 Est. Patient 10:51:58 CDT Yolande Lindsay MD [facility]-46866 Level 3 Est. Patient 14:04:55 [employer] PERSONALITY Rodrigo Sarah [facility]-86002 Level 3 Est. Patient 10:46:35 [employer] PERSONALITY Rodrigo Sarah [facility]-24096 Level 3 Est. Patient 14:24:37 [employer] PERSONALITY Yolande Lindsay MD [facility]-81892 Level 3 Est. Patient 17:41:58 [employer]LE[employer]IA PERSONALITY Yolande Lindsay MD [facility]-64279 Level 2 Est. Patient 22:01:41 [employer]LE[employer]IA PERSONALITY Rodrigo Sarah [facility]-06727 Level 2 Est. Patient 22:01:11 [employer]LE[employer]UR MEDIA PERSONALITY Rodrigo Sarah [facility] CPT-18384 Level 3 Est. Patient 10:12:29 CELEBRITY [employer] E[employer]RE[employer]UR MEDIA PERSONALITY Rodrigo Sarah [facility] CPT-04552 Level 3 Est. Patient 11:05:44 CDT Alexis Ordaz MD [facility] CPT-83538 Level 3 Est. Patient 14:57:20 CDT Yolande Lindsay MD [facility] CPT-79916 Level 3 Est. Patient 14:40:57 CDT Yolande Lindsay MD [facility] CPT-01101 Level 3 Est. Patient 20:55:40 CDT Yolande Lindsay MD [facility] CPT-35156 Level 3 Est. Patient 12:42:38 [employer]LE[employer] MEDIA PERSONALITY Yolande Lindsay MD [facility] CPT-45490 Level 3 Est. Patient 11:54:49 [employer] MEDIA PERSONALITY Des Hines MD [facility] CPT-75605 Level 3 Est. Patient 17:06:38 CDT Dewayne PERAZA [facility] Procedures Code Procedure Name Date Entry Date Standard Description CPT-63196 Hip, complete, 2-3 views - XRAY USE ONLY 17:19:04 [employer]AL[employer] CPT-59673 Venipuncture Draw Fee 08:37:59 [employer]AL[employer] CPT-33013 Liver Profile - LAB USE ONLY 08:37:59 [employer] PERSONAL[employer] CPT-62820 Lipid - LAB USE ONLY 08:37:58 [employer]ERSONAL[employer] CPT-72644 First Vx - Ix admin via ID IM or jet injects without counseling by physician 11:52:31 CDT CPT-49366 Fluzone Preservative Free Intramuscular Suspension 11:52 :31 CDT CPT-85309 Foot, left, comp min 3V - XRAY USE ONLY 09:24:54 CDT CPT-10695 Abd single AP View - XRAY USE ONLY 11:16:17 CDT CPT-75184 T spine AP/ Lat - XRAY USE ONLY 09:34:21 CDT CPT-50895 Chest 2V Frontal and Lat - XRAY USE ONLY 10:48:51 CDT CPT-69752 LS spine comp w obliq 13:28:00 [employer]ERSONAL[employer] CPT-J1040 Depo Medrol 80 mg (Methyl Prednisolone Acetate) 10:51: 28 [employer] PERSONAL[employer] CPT-J1100 Decadron 8mg (Dexamethasone) 10:51:28 [employer] PERSONALITY CPT-20476 Abx/Therapy Injection 10:51:28 [employer]LE[employer] PERSONALITY CPT-J1100 Decadron 8mg (Dexamethasone) 21:02:30 [employer] PERSONALITY CPT-J1040 Depo Medrol 80 mg (Methyl Prednisolone Acetate) 21:02: 30 [employer] PERSONALITY [id number] Event Monitor - MC Transmission 09:12:32 CDT 08/06 [id number] Event Monitor - MC review and interp 09:12:32 CDT [id number] Event Monitor - MC recording 09:12:32 CDT CPT-63324 EKG Trac and Interp 16:50:22 CDT CPT-J1030 Depo Medrol 40 mg (Methyl Prednisolone Acetate) 17:05: 54 CDT CPT-J1100 Decadron 4mg (Dexamethasone) 17:05:54 CDT CPT-94983 Abx/Therapy Injection 17:05:54 CDT CPT-J1100 Decadron 4mg (Dexamethasone) 16:55:28 CDT CPT-J1030 Depo Medrol 40 mg (Methyl Prednisolone Acetate) 16:55: 28 CDT CPT-73249 Ankle Complete - Min 3V 15:58:50 CDT CPT-70343 Knee 3V 15:58:50 CDT CPT-70272 Hip comp min 2V 15:58:50 CDT CPT-J2270 Morphine Sulfate 10 mg 14:25:44 [employer] CPT-J2550 Phenergan 12.5 mg (Promethazine) 14:25:44 [employer] PERSONAL[employer] CPT-70307 Abx/Therapy Injection 14:25:44 [employer] PERSONAL[employer] CPT-J2550 Phenergan 12.5 mg (Promethazine) 14:08:03 [employer] PERSONAL[employer] CPT-J2270 Morphine Sulfate 10 mg 14:08:03 [employer]LE[employer] PERSONALITY CPT-96093 Bladder Scan 15:00:38 CDT CPT-TCMM Transitional Care Mgmt-Moderate 09:52:22 CDT CPT-J1030 Depo Medrol 40 mg (Methyl Prednisolone Acetate) 10:55: 18 CDT CPT-J1100 Decadron 4mg (Dexamethasone) 10:55:18 CDT CPT-38798 Abx/Therapy Injection 10:55:18 CDT CPT-J1030 Depo Medrol 40 mg (Methyl Prednisolone Acetate) 10:22: 32 CDT CPT-J1100 Decadron 4mg (Dexamethasone) 10:22:32 CDT CPT-04701 Postop F/U Visit 14:37:13 CDT CPT-27076 Ankle Complete - Min 3V 17:11:58 CDT CPT-81374 Foot comp min 3V 17:11:58 CDT CPT-99566 Bladder Scan 09:56:58 CDT CPT-30741 Postop F/U Visit 09:56:58 CDT CPT-46755 Cystoscopy 09:02:42 CDT CPT-78784 Bladder Scan 09:02:42 CDT CPT-86886 Abd single AP View 16:00:35 CDT CPT-74166 Administration single or combination vaccine inc oral 10 :15:43 CDT CPT-72227 Influenza split virus > age 3 10:15:43 CDT CPT-23044 Nail Avulsion 09:24:57 CDT CPT-OV Office Visit 11:15:41 CDT CPT-68498 Abx/Therapy Injection 10:51:30 CDT CPT-J3301 Kenalog 40 mg (Triamcinolone Acetonide) 10:25:12 CDT CPT-J1100 Decadron 4mg (Dexamethasone) 10:25:12 CDT CPT-24705 Anoscopy diagnostic 10:36:12 CDT CPT-OV Office Visit 15:34:31 CDT CPT-56678 Abx/Therapy Injection 08:21:15 [employer] CPT-J1885 Toradol 60 mg (Ketorolac) 10:46:35 [employer] CPT-OV Office Visit 19:51:16 [employer] CPT-64293 Spec Collection and Handling Fee 14:34:18 [employer] CPT-PV Prev. Care Visit 14:19:18 [employer] CPT-74763 Postop F/U Visit 14:47:51 [employer] CPT-81431 Postop F/U Visit 15:15:14 [employer] CPT-56260 Postop F/U Visit 14:41:43 CDT CPT-44628 Postop F/U Visit 15:47:46 CDT CPT-OV Office Visit 15:27:23 CDT CPT-OV Office Visit 17:20:34 CDT CPT-77413 Abx/Therapy Injection 15:05:57 CDT CPT-J1100 Decadron 8mg (Dexamethasone) 14:44:57 CDT CPT-J1040 Depo Medrol 80 mg (Methyl Prednisolone Acetate) 14:44: 57 CDT CPT-JTINJ Joint Injection 10:17:37 CDT CPT-87893 Administration 2+ single or combination vaccines inc oral 13:01:46 [employer] CPT-27209 Administration single or combination vaccine inc oral 13 :01:46 [employer] CPT-58383 Pneumovax 13:01:46 [employer] CPT-81699 Influenza split virus > age 3 13:01:46 [employer] CPT-77561 Administration single or combination vaccine inc oral 08 :56:49 CDT CPT-45579 Tdap 08:56:49 CDT
--- OUTSIDE RECORDS SUMMARY | 2017-03-22 00:07 | XMS REPORT | Clinical Summary ---
Author Author Admin, MARGRET Organization [facility] Address Unknown Phone Unavailable Allergies, Adverse Reactions, Alerts Allergy Name Reaction Description Start Date Severity Status Provider CHLORHEXIDINE GLUCONATE tongue and gums swollen Critical Active Hoa Otto RMA NORFLEX Rash Critical Active Rodrigo Sarah CHOKE REAMER TRAZODONE HCL sees things Critical Active Dewayne [...] MD PhD ANKLE PAIN, RIGHT ICD-719.47 Inactive oYlande Lindsay MD PhD EDEMA, LIMB ICD-782.3 Inactive [...] pill by mouth daily, for edema FUROSEMIDE 84547703052 Active Yolande Lindsay MD PhD Active FISH OIL 1000 MG CAPS 1 pill daily x 1 week, then 2 pills daily x 1 week, then 3 pills daily x 1 week, then 4 pills daily OMEGA-3 FATTY ACIDS 15653799509 Active Yolande Lindsay MD PhD Active NIACIN 500 MG TABS 1 pill by mouth nightly x 1 week, then 2 pills x 1 week, then 3 pills x 1 week, then 4 pills nightly - take after evening meal, with applesauce or an apple NIACIN 01575133912 Active Yolande Lindsay MD PhD Active ATORVASTATIN CALCIUM 10 MG TABS 1 pill by mouth daily, for cholesterol 09/06 ATORVASTATIN CALCIUM 17566825738 Active Yolande Lindsay MD PhD Active CALCIUM 600+D PLUS MINERALS 600-400 MG-UNIT ORAL CHEW 1 tab by mouth daily CALCIUM CARBONATE-VIT D-MIN 07741257076 No Longer Active Yolande Lindsay MD PhD Active CYCLOBENZAPRINE HCL 10 MG TABS 1 tablet by mouth three times daily as needed for muscle spasm/pain CYCLOBENZAPRINE HCL 14324499440 Active Yolande Lindsay MD PhD Active ONDANSETRON 4 MG TBDP 1 q4h PRN nausea ONDANSETRON 19307231807 Active Yolande Lindsay MD PhD Active ADULT ASPIRIN EC LOW STRENGTH 81 MG TBEC Take 1 tablet by mouth daily 2014 ASPIRIN 77334765979 No Longer Active Yolande Lindsay MD PhD Active ZOFRAN ODT 4 MG TBDP 1 pill dissolved by mouth every 4 hours if needed for nausea ONDANSETRON 49305505322 No Longer Active Yolande Lindsay MD PhD Active CEFTIN 500 MG TAB 1 twice a day CEFUROXIME AXETIL 61063142360 No Longer Active Yolande Lindsay MD PhD Active ALBUTEROL SULFATE 0.083 % NEBU SOLN one vial per nebulizer every 4-6 hours as needed ALBUTEROL SULFATE 44162866445 No Longer Active Alexis Ordaz MD Active DOXYCYCLINE HYCLATE 100 MG CAP 1 cap by mouth twice daily DOXYCYCLINE HYCLATE 14595400162 No Longer Active Yolande Lindsay MD PhD Active CYCLOBENZAPRINE HCL 10 MG TABS 1/2 - 1 tab by mouth three times daily if needed for spasms/pain CYCLOBENZAPRINE HCL 56244069473 No Longer Active Yolande Lindsay MD PhD Active TRILEPTAL 600 MG TABS Take one 1/2 tablet in Am and 1 tablet at night OXCARBAZEPINE 34368975145 Active Yolande Lindsay MD PhD Active AZITHROMYCIN 250 MG TABS 2 pills on day 1, then 1 pill daily x 4 days AZITHROMYCIN 71060305828 No Longer Active Yolande Lindsay MD PhD Active XOPENEX 1.25 MG/3ML NEBU 1 neb every 4 hours if needed for cough/congestion LEVALBUTEROL HCL 15293514032 No Longer Active Yolande Lindsay MD PhD Active DOXYCYCLINE HYCLATE 100 MG TAB 1 tab twice a day for 14 days 2013 DOXYCYCLINE HYCLATE 72609727159 No Longer Active Yolande Lindsay MD PhD Active LEVOTHYROXINE SODIUM 75 MCG TABS Take 1 tab daily LEVOTHYROXINE SODIUM 66480412537 Active Yolande Lindsay MD PhD Active PREVACID 30 MG CPDR Take 1 tablet by mouth daily-PRN LANSOPRAZOLE 27167270789 No Longer Active Yolande Lindsay MD PhD Active PA VITAMIN D-3 2000 UNIT CAPS 1 CAP PO DAILY CHOLECALCIFEROL 32821973972 No Longer Active Yolande Lindsay MD PhD Active CEFDINIR 300 MG CAPS by mouth twice a day CEFDINIR 73253049513 No Longer Active Gab Padron MD Active TOPAMAX 50 MG TABS 1 PO twice daily TOPIRAMATE 89385728497 Active Yolande Lindsay MD PhD Active AZITHROMYCIN 250 MG TABS 2 po qd x 1 day, then 1 po qd x 4 days AZITHROMYCIN 30366329152 No Longer Active Yolande Lindsay MD PhD Active DICLOFENAC SODIUM 75 MG TBEC 1 tablet by q 12 hours PRN headaches DICLOFENAC SODIUM 19921031926 No Longer Active Yolande Lindsay MD PhD Active FLONASE 50 MCG/ACT SUSP 1 spray each nostril am and hs FLUTICASONE PROPIONATE 72643912298 No Longer Active Todd Callaway MD Active ANUSOL-HC 25 MG SUPPOSITORY 1 rectally twice a day as needed for hemorrhoids HYDROCORTISONE JAYDEN (RECTAL) 23196764249 No Longer Active Yolande Lindsay MD PhD Active ANUSOL-HC 25 MG SUPPOSITORY 1 suppository rectally each evening as needed for anal fissure HYDROCORTISONE JAYDEN (RECTAL) 73611163823 No Longer Active LONNIE Iglesias Active VALIUM 5 MG TAB 1 po 30 minutes prior to your MRI DIAZEPAM 64162030976 No Longer Active LONNIE Iglesias Active METHOCARBAMOL 750 MG TABS 1 PO QID PRN METHOCARBAMOL 73187664121 No Longer Active Daphne Wetzel APRN Active NITROSTAT 0.4 MG SUBL as directed NITROGLYCERIN 56846800394 No Longer Active Rodrigo Sarah APRN Active ROBAXIN-750 750 MG TABS 2 four times a day for 3 days as needed for muscle spasm, then 1 four times a day as needed METHOCARBAMOL 08272412168 No Longer Active Rodrigo Sarah APRN Active HYDROCODONE-ACETAMINOPHEN 5-325 MG TABS 1 q 4-6 hrs prn HYDROCODONE-ACETAMINOPHEN 52790771022 No Longer Active Rodrigo Sarah APRN Active VERAPAMIL HCL CR 180 MG CR-TABS TAKE 1 TAB DAILY VERAPAMIL HCL 61689187318 No Longer Active Yolande Lindsay MD PhD Active BACTRIM DS 800-160 MG TAB 1 tab by mouth twice daily TRIMETHOPRIM-SULFAMETHOXAZOLE 17934776528 No Longer Active Yolande Lindsay MD PhD Active NEXIUM 40 MG PACK 1 by mouth daily ESOMEPRAZOLE MAGNESIUM 30268047082 No Longer Active Des Hines MD Active EPIPEN 2-CHARLETTE 0.3 MG/0.3ML OMARI as need for allergic reaction EPINEPHRINE 06838951588 Active Yolande Lindsay MD PhD Active LISINOPRIL 10 MG TABS 1 PO Q D FOR BP LISINOPRIL 05445244905 Active Yolande Lindsay MD PhD Active NEXIUM 40 MG CPDR 1 PO Q D DAY ESOMEPRAZOLE MAGNESIUM 11340923625 No Longer Active Sadia Perry RN Active NEXIUM 40 MG PACK 1 by mouth daily NEXIUM 40 MG PACK ESOMEPRAZOLE MAGNESIUM Inactive VERAPAMIL HCL CR 180 MG CR-TABS TAKE 1 TAB DAILY VERAPAMIL HCL CR 180 MG CR-TABS VERAPAMIL HCL Inactive HYDROCODONE-ACETAMINOPHEN 5-325 MG TABS 1 q 4-6 hrs prn HYDROCODONE-ACETAMINOPHEN 5-325 MG TABS 904421 HYDROCODONE-ACETAMINOPHEN Inactive ROBAXIN-750 750 MG TABS 2 four times a day for 3 days as needed for muscle spasm, then 1 four times a day as needed ROBAXIN-750 750 MG TABS 477329 METHOCARBAMOL Inactive NITROSTAT 0.4 MG SUBL as directed NITROSTAT 0.4 MG SUBL NITROGLYCERIN Inactive METHOCARBAMOL 750 MG TABS 1 PO QID PRN METHOCARBAMOL 750 MG TABS 904722 METHOCARBAMOL Inactive VALIUM 5 MG TAB 1 po 30 minutes prior to your MRI VALIUM 5 MG TAB 586833 DIAZEPAM Inactive ANUSOL-HC 25 MG SUPPOSITORY 1 suppository rectally each evening as needed for anal fissure ANUSOL-HC 25 MG SUPPOSITORY 4180785 HYDROCORTISONE JAYDEN (RECTAL) Inactive ANUSOL-HC 25 MG SUPPOSITORY 1 rectally twice a day as needed for hemorrhoids ANUSOL-HC 25 MG SUPPOSITORY 8239599 HYDROCORTISONE JAYDEN (RECTAL) Inactive FLONASE 50 MCG/ACT SUSP 1 spray each nostril am and hs FLONASE 50 MCG/ACT SUSP 009570 FLUTICASONE PROPIONATE Inactive DICLOFENAC SODIUM 75 MG TBEC 1 tablet by q 12 hours PRN headaches DICLOFENAC SODIUM 75 MG TBEC 259565 DICLOFENAC SODIUM Inactive PA VITAMIN D-3 2000 UNIT CAPS 1 CAP PO DAILY PA VITAMIN D-3 2000 UNIT CAPS CHOLECALCIFEROL Inactive PREVACID 30 MG CPDR Take 1 tablet by mouth daily-PRN PREVACID 30 MG CPDR 865657 LANSOPRAZOLE Inactive DOXYCYCLINE HYCLATE 100 MG TAB 1 tab twice a day for 14 days 2013 DOXYCYCLINE HYCLATE 100 MG TAB 845269 DOXYCYCLINE HYCLATE Inactive XOPENEX 1.25 MG/3ML NEBU 1 neb every 4 hours if needed for cough/congestion XOPENEX 1.25 MG/3ML NEBU 696471 LEVALBUTEROL HCL Inactive CYCLOBENZAPRINE HCL 10 MG TABS 1/2 - 1 tab by mouth three times daily if needed for spasms/pain CYCLOBENZAPRINE HCL 10 MG TABS 495013 CYCLOBENZAPRINE HCL Inactive ALBUTEROL SULFATE 0.083 % NEBU SOLN one vial per nebulizer every 4-6 hours as needed ALBUTEROL SULFATE 0.083 % NEBU SOLN 216191 ALBUTEROL SULFATE Inactive CEFTIN 500 MG TAB 1 twice a day CEFTIN 500 MG TAB 390956 CEFUROXIME AXETIL Inactive ZOFRAN ODT 4 MG TBDP 1 pill dissolved by mouth every 4 hours if needed for nausea ZOFRAN ODT 4 MG TBDP 744223 ONDANSETRON Inactive ADULT ASPIRIN EC LOW STRENGTH 81 MG TBEC Take 1 tablet by mouth daily 2014 ADULT ASPIRIN EC LOW STRENGTH 81 MG TBEC 044788 ASPIRIN Inactive CALCIUM 600+D PLUS MINERALS 600-400 [...] x 4 days AZITHROMYCIN 250 MG TABS 2702208 AZITHROMYCIN Inactive CEFDINIR 300 MG CAPS by mouth twice a day CEFDINIR 300 MG CAPS 622242 CEFDINIR Inactive AZITHROMYCIN 250 MG TABS 2 pills on day 1, then 1 pill daily x 4 days AZITHROMYCIN 250 MG TABS 7629659 AZITHROMYCIN Inactive DOXYCYCLINE HYCLATE 100 MG CAP 1 cap by mouth twice daily DOXYCYCLINE HYCLATE 100 MG CAP 19890510 DOXYCYCLINE HYCLATE Inactive Immunizations Vaccine Administration Date Value Standard Description Seasonal influenza vaccine, injectable, containing preservative, for > 3 years old (Afluria, FluLaval, Fluzone, Fluvirin, Fluarix, Agriflu(>=18 yo)) Fluzone (>3 yrs.) [NIR789] Influenza, seasonal, injectable influenza immunization (Flu Vax) has been administered Influenza - Unspecified Formulation [CVX88] influenza virus vaccine, unspecified formulation pneumococcal immunization administered Pneumovax 23 [CVX33] pneumococcal polysaccharide vaccine, 23 valent Seasonal influenza vaccine, injectable, containing preservative, for > 3 years old (Afluria, FluLaval, Fluzone, Fluvirin, Fluarix, Agriflu(>=18 yo)) Fluzone (>3 yrs.) [QAI745] Influenza, seasonal, injectable dT (Diphtheria and Tetanus) booster given given Td(adult) unspecified formulation Boostrix (Tetanus toxoid, reduced diphtheria toxoid and acellular pertussis vaccine, adsorbed), booster Boostrix [EQH731] tetanus toxoid, reduced diphtheria toxoid, and acellular [...] mg/dL Chart Maintenance: Outside labs entered on [employer] - Hematology leukocyte count, blood 6.1 10*3/mm3 hemoglobin, blood 11.0 g/dL platelet count 175 10*3/mm3 Lab Report: [facility] Advanced Lipid and Inlammation Panel /48697 - Chemistry cholesterol, serum 198 mg/dL 952-657 0127/04/30 HDL cholesterol, serum 65 mg/dL > OR=46 triglyceride, serum, fasting 82 mg/dL LDL cholesterol, serum 117 mg/dL cholesterol/HDL ratio, serum 3.0 calc < OR=5.0 Lab Report: CBC W/DIFF, Basic Metabolic Panel - Chemistry sodium, serum 144 mmol/L 273-720 5821/01/21 potassium, serum 4.2 mmol/L 3.5-5.2 chloride, serum [...] Panel - Chemistry sodium, serum 144 mmol/L 008-067 9200/12/15 potassium, serum 5.4 mmol/L 3.5-5.2 chloride, serum [...] UA - Chemistry sodium, serum 143 mmol/L 861-083 5784/10/24 potassium, serum 3.9 mmol/L 3.5-5.2 chloride, serum [...] 51 mg/dL 30-200 cholesterol, serum 173 mg/dL 794-238 7495/04/28 HDL cholesterol, serum 63 mg/dL 32-96 LDL [...] 0-19 Encounters Code Encounter Date Provider Facility CPT-73206 Level 3 Est. Patient 07:37:45 CDT Yolande Lindsay MD [facility] [address] CPT-85227 Level 3 Est. Patient 17:03:46 CDT Yolande Lindsay MD [facility]-56015 Level 4 Est. Patient 20:02:13 RAIL LAYER Yolande Lindsay MD [facility] CPT-70905 Level 3 Est. Patient 16:02:07 RAIL LAYER Alexis Ordaz MD [facility]-44808 Level 3 Est. Patient 12:41:24 RAIL LAYER Yolande Lindsay MD [facility]-90387 Level 3 Est. Patient 15:41:20 RAIL LAYER Yolande Lindsay MD [facility]-10417 Level 3 Est. Patient 13:20:02 RAIL LAYER Yolande Lindsay MD [facility]-17506 Level 3 Est. Patient 15:00:38 CDT Jared Og MD [facility] CPT-13795 Level 3 Est. Patient 10:22:32 CDT Yolande Lindsay MD [facility] CPT-00734 Level 3 Est. Patient 17:12:58 CDT Yolande Lindsay MD [facility] CPT-56430 Level 4 Est. Patient 13:30:58 CDT Yolande Lindsay MD [facility] CPT-29651 Level 4 New Patient 09:02:42 CDT Jaerd Og MD [facility] CPT-99881 Level 3 Est. Patient 08:19:07 CDT Yolande Lindsay MD [facility]-97747 Level 3 Est. Patient 12:00:13 RAIL LAYER Gab Padron MD [facility] CPT-08138 Level 3 Est. Patient 16:15:23 RAIL LAYER Yolande Lindsay MD [facility]-27702 Level 2 Est. Patient 19:47:15 CDT Yolande Lindsay MD [facility]-48272 Level 3 Est. Patient 21:38:31 CDT Yolande Lindsay MD [facility]-30645 Level 3 Est. Patient 10:25:12 CDT Adiel PERAZA [facility]-32022 Level 4 Est. Patient 10:51:58 CDT Yolande Lidnsay MD [facility]-55467 Level 3 Est. Patient 14:04:55 RAIL LAYER Rodrigo Sarah [facility]-36484 Level 3 Est. Patient 10:46:35 RAIL LAYER Rodrigo Sarah [facility]-09353 Level 3 Est. Patient 14:24:37 RAIL LAYER Yolande Lindsay MD [facility]-97196 Level 3 Est. Patient 17:41:58 RAIL LAYER Yolande Lindsay MD [facility]-12078 Level 2 Est. Patient 22:01:41 RAIL LAYER Rodrigo Sarah [facility]-35648 Level 2 Est. Patient 22:01:11 RAIL LAYER Rodrigo Sarah [facility]-95423 Level 3 Est. Patient 10:12:29 RAIL LAYER Rodrigo Sarah [facility]-64615 Level 3 Est. Patient 11:05:44 CDT Alexis Ordaz MD [facility]-06457 Level 3 Est. Patient 14:57:20 CDT Yolande Lindsay MD [facility]-31501 Level 3 Est. Patient 14:40:57 CDT Yolande Lindsay MD [facility]88257 Level 3 Est. Patient 20:55:40 CDT Yolande Lindsay MD PhD [facility] CPT-86704 Level 3 Est. Patient 12:42:38 RAIL LAYER Yolande Lindsay MD PhD [facility] CPT-86595 Level 3 Est. Patient 11:54:49 RAIL LAYER Des Hines MD [facility] CPT-56336 Level 3 Est. Patient 17:06:38 CDT Dewayne PREAZA [facility] Procedures Code Procedure Name Date Entry Date Standard Description [id number] Event Monitor - MC Transmission 09:12:32 CDT 08/06 [id number] Event Monitor - MC review and interp 09:12:32 CDT [id number] Event Monitor - MC recording 09:12:32 CDT CPT-75504 EKG Trac and Interp 16:50:22 CDT CPT-J1030 Depo Medrol 40 mg (Methyl Prednisolone Acetate) 17:05: 54 CDT CPT-J1100 Decadron 4mg (Dexamethasone) 17:05:54 CDT CPT-39513 Abx/Therapy Injection 17:05:54 CDT CPT-J1100 Decadron 4mg (Dexamethasone) 16:55:28 CDT CPT-J1030 Depo Medrol 40 mg (Methyl Prednisolone Acetate) 16:55: 28 CDT CPT-82935 Ankle Complete - Min 3V 15:58:50 CDT CPT-39250 Knee 3V 15:58:50 CDT CPT-59540 Hip comp min 2V 15:58:50 CDT CPT-J2270 Morphine Sulfate 10 mg 14:25:44 RAIL LAYER CPT-J2550 Phenergan 12.5 mg (Promethazine) 14:25:44 RAIL LAYER CPT-65917 Abx/Therapy Injection 14:25:44 RAIL LAYER CPT-J2550 Phenergan 12.5 mg (Promethazine) 14:08:03 RAIL LAYER CPT-J2270 Morphine Sulfate 10 mg 14:08:03 RAIL LAYER CPT-40335 Bladder Scan 15:00:38 CDT CPT-TCMM Transitional Care Mgmt-Moderate 09:52:22 CDT CPT-J1030 Depo Medrol 40 mg (Methyl Prednisolone Acetate) 10:55: 18 CDT CPT-J1100 Decadron 4mg (Dexamethasone) 10:55:18 CDT CPT-92707 Abx/Therapy Injection 10:55:18 CDT CPT-J1030 Depo Medrol 40 mg (Methyl Prednisolone Acetate) 10:22: 32 CDT CPT-J1100 Decadron 4mg (Dexamethasone) 10:22:32 CDT CPT-09671 Postop F/U Visit 14:37:13 CDT CPT-69324 Ankle Complete - Min 3V 17:11:58 CDT CPT-98750 Foot comp min 3V 17:11:58 CDT CPT-76479 Bladder Scan 09:56:58 CDT CPT-16162 Postop F/U Visit 09:56:58 CDT CPT-79793 Cystoscopy 09:02:42 CDT CPT-30105 Bladder Scan 09:02:42 CDT CPT-38194 Abd single AP View 16:00:35 CDT CPT-65288 Administration single or combination vaccine inc oral 10 :15:43 CDT CPT-67975 Influenza split virus > age 3 10:15:43 CDT CPT-97171 Nail Avulsion 09:24:57 CDT CPT-OV Office Visit 11:15:41 CDT CPT-62317 Abx/Therapy Injection 10:51:30 CDT CPT-J3301 Kenalog 40 mg (Triamcinolone Acetonide) 10:25:12 CDT CPT-J1100 Decadron 4mg (Dexamethasone) 10:25:12 CDT CPT-59265 Anoscopy diagnostic 10:36:12 CDT CPT-OV Office Visit 15:34:31 CDT CPT-44908 Abx/Therapy Injection 08:21:15 RAIL LAYER CPT-J1885 Toradol 60 mg (Ketorolac) 10:46:35 RAIL LAYER CPT-OV Office Visit 19:51:16 RAIL LAYER CPT-45236 Spec Collection and Handling Fee 14:34:18 RAIL LAYER CPT-PV Prev. Care Visit 14:19:18 RAIL LAYER CPT-82252 Postop F/U Visit 14:47:51 RAIL LAYER CPT-35813 Postop F/U Visit 15:15:14 RAIL LAYER CPT-15901 Postop F/U Visit 14:41:43 CDT CPT-54701 Postop F/U Visit 15:47:46 CDT CPT-OV Office Visit 15:27:23 CDT CPT-OV Office Visit 17:20:34 CDT CPT-47841 Abx/Therapy Injection 15:05:57 CDT CPT-J1100 Decadron 8mg (Dexamethasone) 14:44:57 CDT CPT-J1040 Depo Medrol 80 mg (Methyl Prednisolone Acetate) 14:44: 57 CDT CPT-JTINJ Joint Injection 10:17:37 CDT CPT-99987 Administration 2+ single or combination vaccines inc oral 13:01:46 RAIL LAYER CPT-50689 Administration single or combination vaccine inc oral 13 :01:46 RAIL LAYER CPT-66443 Pneumovax 13:01:46 RAIL LAYER CPT-98907 Influenza split virus > age 3 13:01:46 RAIL LAYER CPT-64174 Administration single or combination vaccine inc oral 08 :56:49 CDT CPT-52085 Tdap 08:56:49 CDT
--- OUTSIDE RECORDS SUMMARY | 2017-03-22 00:08 | XMS REPORT ---
Author Author [facility] Medical Staff Organization [facility] Address [address] [id number] Phone [phone] Care Team Providers Care Audio Visual Director Name Role Phone EVELYN SPEARS MD PP [phone] EVELYN SPEARS MD, PP [phone] Summary purpose TRANSITION OF CARE AUTO GENERATION Chief Complaint and Reason for Visit Admit Diagnosis 1 CYSTO LEFT RPG W HYDRO Problem list No authorized problems tracked for [...] tests and/or laboratory data RESULTS Radiology Results [id number]:43:00 RETROGRADE PYELOGRAM PACs Image DATE OF EXAM: Oct 30 2015 RAD 1274-RETROGRADE PYELOGRAM : RADIOLOGY REPORT DATE OF SERVICE: 10/30/15 HISTORY: Hydrodilation LEFT RETROGRADE [id number] HOURS Films were obtained with the portable image intensifier. The left ureter was instrumented. Contrast was injected. The left ureter is normal in caliber. There are no filling defects. The left renal collecting system and calyces are normal. No masses are present. The ureter and collecting systems drain satisfactorily spontaneously. IMPRESSION: Normal left retrograde pyelogram. MD DEMI Hubbard/mn10/30/2015 09:10:10/30/2015 09:46:26 cc:Dr. Aniceto Og This document has been electronically Signed by: On: DATE OF EXAM: Oct 30 2015 RAD 1274-RETROGRADE PYELOGRAM : RADIOLOGY REPORT DATE OF SERVICE: 10/30/15 HISTORY: Hydrodilation LEFT RETROGRADE [id number] HOURS Films were obtained with the portable image intensifier. The left ureter was instrumented. Contrast was injected. The left ureter is normal in caliber. There are no filling defects. The left renal collecting system and calyces are normal. No masses are present. The ureter and collecting systems drain satisfactorily spontaneously. IMPRESSION: Normal left retrograde pyelogram. MD DEMI Hubbard/liam10/30/2015 09:10:10/30/2015 09:46:26 cc:Dr. Aniceto Og This document has been electronically Signed by: ARCENIO NINO MD On: Oct 30 2015 11:43A CYSTO LEFT RPG W HYDRO Result Amended on 2015-10-30 at 11:43:24. Previous status was FL. CYSTO LEFT RPG W HYDRO History of procedures No procedures recorded for this patient visit. Functional status Functional Status Finding Observation Time Hearing Prob Loc none 03-24-586483:55 Vision Problems yes 15-12-966870:55 Vision Correct Dev glasses 51-61-669189:55 Ambulation Asst Dev none 62-46-028015:55 Range of Motion full :15 Muscle Strength RUE 5 ROM full resist 31-28-114610:15 Muscle Strength RLE 5 ROM full resist 77-36-493329:15 Muscle Strength LUE 5 ROM full resist :15 Muscle Strength LLE 5 ROM full resist 82-83-190346:15 Transfers assist x 2 66-45-124482:15 Ambulation in room 21-72-502741:15 Balance unsteady 97-87-661336:15 Bathing Assistance none 22-41-680731:55 Eating Assistance none 78-14-768577:55 Dressing Assistance none 68-92-076346:55 Toileting Assistance none 17-76-756315:55 Transfer Assistance none 82-83-397774:55 Decline Slf Care/Mob no :55 Phys Cond Stable yes 15-28-609555:55 Nutrition normal 55-90-241942:15 Diet regular 73-62-356615:15 Oral Cavity moist and intact :15 Teeth dentures 13-68-652107:15 Dental Hygiene good 96-87-069895:15 Abdomen Appearance obese 61-13-846734:15 Abdomen soft 02-38-693253:15 Bowel Sounds present :15 NG Tube no :15 Feeding Tube none :15 Bajwa no :15 Cont Bladder Irr no :15 Ostomy no :15 Stool normal :15 Urination normal 76-92-848056:15 Quality sym/unlabored :15 Cough absent 19-54-618760:15 Secretions no :15 Breath Sounds RUL clear :15 Breath Sounds RML clear :15 Breath Sounds RLL clear :15 Breath Sounds LESLIE clear :15 Breath Sounds LLL clear :15 Airway natural :15 Chest Tube no :15 Oxygen no 58-45-442746:00 C-PAP no 96-92-663477:15 BI-PAP no 37-59-804728:15 Temp >100.4 no :15 Temp <96.8 no :15 Chills with rigors no :15 HR > 90bpm no :15 Respirations > 20 no 29-75-826619:15 Systolic <90 no :15 headache stiff neck no 06-00-130322:15 WBC > 55112 no 96-72-209356:15 WBC < 4000 no 21-39-233486:15 IV Site Location L hand 96-99-282859:15 IV Type peripheral 72-05-690660:15 IV Site Information discontinued 87-92-058692:15 IV Site Start Attmpt 1 times 33-58-404164:15 IV Site Acosta 20 50-85-761941:15 IV Site Appearance WNL 47-16-202252:15 IV Site Color clear 50-63-961013:15 IV Site Patent yes 16-92-939650:15 Dressing Changed no (explain) 36-17-322689:15 Dressing Type occlusive 34-86-946778:15 Nursing Note Pt per w/c to west entrance accompanied by spouse. Pt in good condition with all belongings intact. 73-01-678062:30 Cognitive Status Finding Observation Time Learning Ability comprehends well 31-18-649552:15 Neurological no 34-81-273993:15 Psychological yes 53-33-837460:15 Physical no 79-28-056925:15 Hearing no 74-74-438532:15 Roll Forger Needed no 13-24-876580:15 Sign Language no 54-81-336918:15 Emotional no 87-36-307169:15 Vision yes 11-85-940149:15 [place] no 78-96-981755:15 Financial no 88-22-771516:15 Vital signs Type Value Date Respiration Rate 18breaths per minute 45-50-548400:00 Pulse 62beats per minute 38-64-758214:00 Oxygen Saturation 97% 28-74-871787:00 BP Systolic 119mmHg 69-00-409379:00 BP Diastolic 58mmHg 41-69-343548:00 Temperature 97.8F 24-24-820560:02 Height 64inches 25-66-296953:22 Weight 242LB 55-02-466297:22 Social history Type Value Smoking Status FORMER SMOKER Treatment Plan No treatment plan text is available for this visit. Hospital discharge instructions Discharge Date/Time 10/30/15 1030 Accompanied By tanner Relationship spouse/signif other Dismissal Condition good Disposition on DC home Valuables yes Valuable Type billfold/purse Valuables Returned T patient DC Inst/Educ Give yes Exit Care Educ Given yes Med/Side Effects Rev yes PNE Vac 215 Flu Vac 2015 Tetanus Vac 2011 Diet Explained yes Follow up appt already scheduled Follow Up Appt D/T 11/27/15 0950
--- OUTSIDE RECORDS SUMMARY | 2017-03-22 00:08 | XMS REPORT ---
Author Author [facility] Medical Staff Organization [facility] Address [address] [id number] Phone [phone] Care Team Providers Care Clay Processing Labourer Name Role Phone LENKA HUTSON, EUNICE PP [phone] Summary purpose TRANSITION OF CARE AUTO GENERATION [...]
--- OUTSIDE RECORDS SUMMARY | 2017-03-22 00:10 | XMS REPORT | Clinical Summary ---
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 Jillina Frazellilian WIRE WEAVER 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 Anemia 285.9 Active Gab Padron MD Anemia, unspecified Conjunctivitis 372.30 Active Jillnacho Sarah APRN Conjunctivitis, unspecified Sinusitis 473.9 Active Silvestrellina Frazell WIRE WEAVER Unspecified sinusitis (chronic) Nonspecific syndrome suggestive of viral illness 079.99 Active Jillina Frazell WIRE WEAVER Unspecified viral infection Laryngitis 464.00 Active Jillina Frazell WIRE WEAVER Acute laryngitis without mention of obstruction Abdominal [...] Flank pain, left 789.09 Active Jillina Frazell WIRE WEAVER Abdominal pain, other specified site; multiple sites Abdominal pain, generalized 789.07 Active Jillina Farshadzell WIRE WEAVER Abdominal pain, generalized Back pain, thoracic region, left 724.1 Active Jillina Frazell WIRE WEAVER Pain in thoracic spine Abdominal pain, left lower quadrant 789.04 Active Gab Padron MD Abdominal pain, left lower quadrant Slowing of urinary stream 788.62 Active Gab Padron MD Slowing of urinary stream Interstitial cystitis 595.1 Active Gab Padron MD Chronic interstitial cystitis Flank Pain Active Jared Og MD Abdominal pain, unspecified site Foot pain, left 729.5 Active Gba Padron MD Pain in limb Heel spur 726.73 Active Gab Padron MD Calcaneal spur Breast tenderness 611.71 Active Gab Padron MD Mastodynia FOOT PAIN, RIGHT ICD-729.5 Inactive Yolande Lindsay [...] Instructions Start Date Stop Date Generic Name [facility] Status Provider Patient Instruction PREDNISONE 20 MG TAB 2 tabs daily for 3 days, 1 tab daily for 3 days, 1/2 tab daily for 2 days PREDNISONE 27023624444 No Longer Active Gab Padron MD Active ZOFRAN ODT 4 MG TBDP 1 po q6hr PRN Nausea ONDANSETRON 95509877720 Active Jillina Frazell WIRE WEAVER Active IBUPROFEN 600 MG TAB 1 tablet by mouth every 6 hours for 7 days, then 1 tablet every 6 hours as needed. Take with food IBUPROFEN 26102863920 Active Jillina Frazell WIRE WEAVER Active BACTRIM DS 800-160 MG TAB 1 tab by mouth twice daily TRIMETHOPRIM-SULFAMETHOXAZOLE 92087630848 No Longer Active Gab Padron MD Active ADVAIR DISKUS 250-50 MCG/DOSE AEPB 1 puff BID FLUTICASONE- SALMETEROL 60512327298 Active Rodrigo Sarah APRN Active LEVOTHYROXINE SODIUM 75 MCG TABS Take 1 tab daily LEVOTHYROXINE SODIUM 94598650026 No Longer Active Mariana Cuadra EDELMIRAA Active SYNTHROID 88 MCG ORAL TABS Take one by mouth daily LEVOTHYROXINE SODIUM 52646703011 Active Mariana Cuadra RMA Active CHERATUSSIN AC 100-10 MG/5ML SYRP 1 tsp by mouth every 4 hours as needed for cough GUAIFENESIN-CODEINE 42769955832 No Longer Active Gab Padron MD Active POLYTRIM 78787-4.1 UNIT/ML-% SOLN 1 gtt to affected eye q3h x 7 days POLYMYXIN B-TRIMETHOPRIM 97637101918 No Longer Active Gab Padron MD Active FLUTICASONE PROPIONATE 50 MCG/ACT SUSP 1 to 2 sprays each nostril daily 04/21 FLUTICASONE PROPIONATE 90245722000 No Longer Active Gab Padron MD Active TRILEPTAL 600 MG TABS Take one 1 tablet in Am and 1 tablet at night OXCARBAZEPINE 41394750062 Active Gab Padron MD Active CEFDINIR 300 MG CAPS 1 po BID x 10 days CEFDINIR 87098879893 No Longer Active Rodrigo Sarah APRN Active CEFTIN 500 MG TAB 1 twice a day CEFUROXIME AXETIL 71441370411 No Longer Active Gab Padron MD Active AZITHROMYCIN 250 MG TABS 2 po qd x 1 day, then 1 po qd x 4 days AZITHROMYCIN 97712636581 No Longer Active Rodrigo Sarah APRN Active CLARITIN 10 MG TAB 1 tablet by mouth daily as needed for allergies LORATADINE 09015521498 Active Rodrigo Sarah APRN Active OXYCODONE HCL 5 MG ORAL CAPS 1 TAB PO Q HS OXYCODONE HCL 80507776332 No Longer Active Rodrigo Sarah APRN Active NIASPAN 500 MG ORAL CR-TABS 1 pill nightly x 1 week, then 2 pills nightly x 1 week, then 3 pills nightly x 1 week, then 4 pills nightly NIACIN (ANTIHYPERLIPIDEMIC) 43600421176 No Longer Active Rodrigo Sarah APRN Active NIACIN 500 MG TABS 1 pill by mouth nightly x 1 week, then 2 pills x 1 week, then 3 pills x 1 week, then 4 pills nightly - take after evening meal, with applesauce or an apple NIACIN 86060314122 No Longer Active Yolande Lindsay MD PhD Active FISH OIL 1000 MG CAPS 3 pills daily OMEGA-3 FATTY ACIDS 19366082009 Active Yolande Lindsay MD PhD Active TRIAMCINOLONE ACETONIDE 0.1 % CREA apply bid sparingly to rash TRIAMCINOLONE ACETONIDE 36698938715 Active Yolande Lindsay MD PhD Active FUROSEMIDE 20 MG TAB 1 tablet by mouth daily FUROSEMIDE 18551525079 Active Tisha Lambert APRN Active LISINOPRIL 20 MG ORAL TABS 1 tab by mouth daily LISINOPRIL 17832970591 Active Gab Padron MD Active FUROSEMIDE 20 MG TABS 1 pill by mouth daily, for edema FUROSEMIDE 34566549243 No Longer Active Yolande Lindsay MD PhD Active ATORVASTATIN CALCIUM 10 MG TABS 1 pill by mouth daily, for cholesterol 09/06 ATORVASTATIN CALCIUM 57463115198 Active Gab Padron MD Active CALCIUM 600+D PLUS MINERALS 600-400 MG-UNIT ORAL CHEW 1 tab by mouth daily CALCIUM CARBONATE-VIT D-MIN 02642020298 No Longer Active Yolande Lindsay MD PhD Active CYCLOBENZAPRINE HCL 10 MG TABS 1 tablet by mouth three times daily as needed for muscle spasm/pain CYCLOBENZAPRINE HCL 69890471257 Active Yolande Lindsay MD PhD Active ONDANSETRON 4 MG TBDP 1 q4h PRN nausea ONDANSETRON 37619233265 Active Yolande Lindsay MD PhD Active ADULT ASPIRIN EC LOW STRENGTH 81 MG TBEC Take 1 tablet by mouth daily 2014 ASPIRIN 58745383932 No Longer Active Yolande Lindsay MD PhD Active ZOFRAN ODT 4 MG TBDP 1 pill dissolved by mouth every 4 hours if needed for nausea ONDANSETRON 55889044392 No Longer Active Yolande Lindsay MD PhD Active CEFTIN 500 MG TAB 1 twice a day CEFUROXIME AXETIL 97053069522 No Longer Active Yolande Lindsay MD PhD Active ALBUTEROL SULFATE 0.083 % NEBU SOLN one vial per nebulizer every 4-6 hours as needed ALBUTEROL SULFATE 97189242077 No Longer Active Alexis Ordaz MD Active DOXYCYCLINE HYCLATE 100 MG CAP 1 cap by mouth twice daily DOXYCYCLINE HYCLATE 18500832421 No Longer Active Yolande Lindsay MD PhD Active CYCLOBENZAPRINE HCL 10 MG TABS 1/2 - 1 tab by mouth three times daily if needed for spasms/pain CYCLOBENZAPRINE HCL 41949637119 No Longer Active Yolande Lindsay MD PhD Active AZITHROMYCIN 250 MG TABS 2 pills on day 1, then 1 pill daily x 4 days AZITHROMYCIN 88046432094 No Longer Active Yolande Lindsay MD PhD Active XOPENEX 1.25 MG/3ML NEBU 1 neb every 4 hours if needed for cough/congestion LEVALBUTEROL HCL 72934999870 No Longer Active Yolande Lindsay MD PhD Active DOXYCYCLINE HYCLATE 100 MG TAB 1 tab twice a day for 14 days 2013 DOXYCYCLINE HYCLATE 50688989350 No Longer Active Yolande Lindsay MD PhD Active PREVACID 30 MG CPDR Take 1 tablet by mouth daily-PRN LANSOPRAZOLE 19930514431 No Longer Active Yolande Lindsay MD PhD Active PA VITAMIN D-3 2000 UNIT CAPS 1 CAP PO DAILY CHOLECALCIFEROL 30016873289 No Longer Active Yolande Lindsay MD PhD Active CEFDINIR 300 MG CAPS by mouth twice a day CEFDINIR 96777863298 No Longer Active Gab Padron MD Active TOPAMAX 50 MG TABS 1 PO twice daily TOPIRAMATE 62142628151 Active Yolande Lindsay MD PhD Active AZITHROMYCIN 250 MG TABS 2 po qd x 1 day, then 1 po qd x 4 days AZITHROMYCIN 58435046172 No Longer Active Yolande Lindsay MD PhD Active DICLOFENAC SODIUM 75 MG TBEC 1 tablet by q 12 hours PRN headaches DICLOFENAC SODIUM 23892937598 No Longer Active Yolande Lindsay MD PhD Active FLONASE 50 MCG/ACT SUSP 1 spray each nostril am and hs FLUTICASONE PROPIONATE 32809514024 No Longer Active Todd Callaway MD Active ANUSOL-HC 25 MG SUPPOSITORY 1 rectally twice a day as needed for hemorrhoids HYDROCORTISONE JAYDEN (RECTAL) 57681648647 No Longer Active Yolande Lindsay MD PhD Active ANUSOL-HC 25 MG SUPPOSITORY 1 suppository rectally each evening as needed for anal fissure HYDROCORTISONE JAYDEN (RECTAL) 85705270452 No Longer Active LONNIE Iglesias Active VALIUM 5 MG TAB 1 po 30 minutes prior to your MRI DIAZEPAM 63554176660 No Longer Active LONNIE Iglesias Active METHOCARBAMOL 750 MG TABS 1 PO QID PRN METHOCARBAMOL 51226279630 No Longer Active Daphne Wetzel APRN Active NITROSTAT 0.4 MG SUBL as directed NITROGLYCERIN 27999301954 No Longer Active Rodrigo Sarah APRN Active ROBAXIN-750 750 MG TABS 2 four times a day for 3 days as needed for muscle spasm, then 1 four times a day as needed METHOCARBAMOL 60498825896 No Longer Active Rodrigo Sarah APRN Active HYDROCODONE-ACETAMINOPHEN 5-325 MG TABS 1 q 4-6 hrs prn HYDROCODONE-ACETAMINOPHEN 58713023377 No Longer Active Rodrigo Sarah APRN Active VERAPAMIL HCL CR 180 MG CR-TABS TAKE 1 TAB DAILY VERAPAMIL HCL 28122673171 No Longer Active Yolande Lindsay MD PhD Active BACTRIM DS 800-160 MG TAB 1 tab by mouth twice daily TRIMETHOPRIM-SULFAMETHOXAZOLE 66596619240 No Longer Active Yolande Lindsay MD PhD Active NEXIUM 40 MG PACK 1 by mouth daily ESOMEPRAZOLE MAGNESIUM 39458427333 No Longer Active Des Hines MD Active EPIPEN 2-CHARLETTE 0.3 MG/0.3ML OMARI as need for allergic reaction EPINEPHRINE 41411985899 Active Yolande Lindsay MD PhD Active NEXIUM 40 MG CPDR 1 PO Q D DAY ESOMEPRAZOLE MAGNESIUM 40576920105 No Longer Active Sadia Perry RN Active NEXIUM 40 MG PACK 1 by mouth daily NEXIUM 40 MG PACK ESOMEPRAZOLE MAGNESIUM Inactive VERAPAMIL HCL CR 180 MG CR-TABS TAKE 1 TAB DAILY VERAPAMIL HCL CR 180 MG CR-TABS VERAPAMIL HCL Inactive HYDROCODONE-ACETAMINOPHEN 5-325 MG TABS 1 q 4-6 hrs prn HYDROCODONE-ACETAMINOPHEN 5-325 MG TABS 852833 HYDROCODONE-ACETAMINOPHEN Inactive ROBAXIN-750 750 MG TABS 2 four times a day for 3 days as needed for muscle spasm, then 1 four times a day as needed ROBAXIN-750 750 MG TABS 942964 METHOCARBAMOL Inactive NITROSTAT 0.4 MG SUBL as directed NITROSTAT 0.4 MG SUBL 024678 NITROGLYCERIN Inactive METHOCARBAMOL 750 MG TABS 1 PO QID PRN METHOCARBAMOL 750 MG TABS 001577 METHOCARBAMOL Inactive VALIUM 5 MG TAB 1 po 30 minutes prior to your MRI VALIUM 5 MG TAB 691134 DIAZEPAM Inactive ANUSOL-HC 25 MG SUPPOSITORY 1 suppository rectally each evening as needed for anal fissure ANUSOL-HC 25 MG SUPPOSITORY 4047513 HYDROCORTISONE JAYDEN (RECTAL) Inactive ANUSOL-HC 25 MG SUPPOSITORY 1 rectally twice a day as needed for hemorrhoids ANUSOL-HC 25 MG SUPPOSITORY 5817967 HYDROCORTISONE JAYDEN (RECTAL) Inactive FLONASE 50 MCG/ACT SUSP 1 spray each nostril am and hs FLONASE 50 MCG/ACT SUSP FLUTICASONE PROPIONATE Inactive DICLOFENAC SODIUM 75 MG TBEC 1 tablet by q 12 hours PRN headaches DICLOFENAC SODIUM 75 MG TBEC 071565 DICLOFENAC SODIUM Inactive PA VITAMIN D-3 2000 UNIT CAPS 1 CAP PO DAILY PA VITAMIN D-3 2000 UNIT CAPS CHOLECALCIFEROL Inactive PREVACID 30 MG CPDR Take 1 tablet by mouth daily-PRN PREVACID 30 MG CPDR 331927 LANSOPRAZOLE Inactive DOXYCYCLINE HYCLATE 100 MG TAB 1 tab twice a day for 14 days 2013 DOXYCYCLINE HYCLATE 100 MG TAB 5693812 DOXYCYCLINE HYCLATE Inactive XOPENEX 1.25 MG/3ML NEBU 1 neb every 4 hours if needed for cough/congestion XOPENEX 1.25 MG/3ML NEBU 380799 LEVALBUTEROL HCL Inactive CYCLOBENZAPRINE HCL 10 MG TABS 1/2 - 1 tab by mouth three times daily if needed for spasms/pain CYCLOBENZAPRINE HCL 10 MG TABS 021213 CYCLOBENZAPRINE HCL Inactive ALBUTEROL SULFATE 0.083 % NEBU SOLN one vial per nebulizer every 4-6 hours as needed ALBUTEROL SULFATE 0.083 % NEBU SOLN 922881 ALBUTEROL SULFATE Inactive CEFTIN 500 MG TAB 1 twice a day CEFTIN 500 MG TAB 772339 CEFUROXIME AXETIL Inactive ZOFRAN ODT 4 MG TBDP 1 pill dissolved by mouth every 4 hours if needed for nausea ZOFRAN ODT 4 MG TBDP 490372 ONDANSETRON Inactive ADULT ASPIRIN EC LOW STRENGTH 81 MG TBEC Take 1 tablet by mouth daily 2014 ADULT ASPIRIN EC LOW STRENGTH 81 MG TBEC 012605 ASPIRIN Inactive CALCIUM 600+D PLUS MINERALS 600-400 [...] or an apple NIACIN 500 MG TABS 831325 NIACIN Inactive NIASPAN 500 MG ORAL CR-TABS 1 pill nightly x 1 week, then 2 pills nightly x 1 week, then 3 pills nightly x 1 week, then 4 pills nightly NIASPAN 500 MG ORAL CR-TABS NIACIN (ANTIHYPERLIPIDEMIC) Inactive OXYCODONE HCL 5 MG ORAL CAPS 1 TAB PO Q HS OXYCODONE HCL 5 MG ORAL CAPS 2066832 OXYCODONE HCL Inactive FLUTICASONE PROPIONATE 50 MCG/ACT SUSP 1 to 2 sprays each nostril daily 04/21 FLUTICASONE PROPIONATE 50 MCG/ACT SUSP 6658200 FLUTICASONE PROPIONATE Inactive POLYTRIM 55092-6.1 UNIT/ML-% SOLN 1 gtt to affected eye q3h x 7 days POLYTRIM 08029-2.1 UNIT/ML-% SOLN 373162 POLYMYXIN B- TRIMETHOPRIM Inactive CHERATUSSIN AC 100-10 MG/5ML SYRP 1 tsp by mouth every 4 hours as needed for cough CHERATUSSIN AC 100-10 MG/5ML SYRP 806491 GUAIFENESIN-CODEINE Inactive LEVOTHYROXINE SODIUM 75 MCG TABS Take 1 tab daily LEVOTHYROXINE SODIUM 75 MCG TABS 693577 LEVOTHYROXINE SODIUM Inactive BACTRIM DS 800-160 MG TAB 1 tab by mouth twice daily BACTRIM DS 800-160 MG TAB 19820606 TRIMETHOPRIM-SULFAMETHOXAZOLE Inactive AZITHROMYCIN 250 MG TABS 2 po qd x 1 day, then 1 po qd x 4 days AZITHROMYCIN 250 MG TABS 0462571 AZITHROMYCIN Inactive CEFDINIR 300 MG CAPS by mouth twice a day CEFDINIR 300 MG CAPS 037510 CEFDINIR Inactive AZITHROMYCIN 250 MG TABS 2 pills on day 1, then 1 pill daily x 4 days AZITHROMYCIN 250 MG TABS 3280413 AZITHROMYCIN Inactive DOXYCYCLINE HYCLATE 100 MG CAP 1 cap by mouth twice daily DOXYCYCLINE HYCLATE 100 MG CAP 4759682 DOXYCYCLINE HYCLATE Inactive FUROSEMIDE 20 MG TABS 1 pill by mouth daily, for edema FUROSEMIDE 20 MG TABS 995586 FUROSEMIDE Inactive AZITHROMYCIN 250 MG TABS 2 po qd x 1 day, then 1 po qd x 4 days AZITHROMYCIN 250 MG TABS 0383323 AZITHROMYCIN Inactive CEFTIN 500 MG TAB 1 twice a day CEFTIN 500 MG TAB 765530 CEFUROXIME AXETIL Inactive CEFDINIR 300 MG CAPS 1 po BID x 10 days CEFDINIR 300 MG CAPS 181652 CEFDINIR Inactive BACTRIM DS 800-160 MG TAB 1 tab by mouth twice daily BACTRIM DS 800-160 MG TAB 372465 TRIMETHOPRIM-SULFAMETHOXAZOLE Inactive PREDNISONE 20 MG TAB 2 tabs daily for 3 days, 1 tab daily for 3 days, 1/2 tab daily for 2 days PREDNISONE 20 MG TAB 896763 PREDNISONE Inactive Immunizations Vaccine Administration Date Value Standard Description Seasonal influenza vaccine, injectable, containing preservative, for > 3 years old (Afluria, FluLaval, Fluzone, Fluvirin, Fluarix, Agriflu(>=18 yo)) Fluzone (>3 yrs.) [LHI339] Influenza, seasonal, injectable influenza immunization (Flu Vax) has been administered Influenza - Unspecified Formulation [CVX88] influenza virus vaccine, unspecified formulation Seasonal influenza vaccine, injectable, containing preservative, for > 3 years old (Afluria, FluLaval, Fluzone, Fluvirin, Fluarix, Agriflu(>=18 yo)) Fluzone (>3 yrs.) [PUS744] Influenza, seasonal, injectable pneumococcal immunization administered Pneumovax 23 [CVX33] pneumococcal polysaccharide vaccine, 23 valent dT (Diphtheria and Tetanus) booster given given Td(adult) unspecified formulation Boostrix (Tetanus toxoid, reduced diphtheria toxoid and acellular pertussis vaccine, adsorbed), booster Boostrix [AMJ050] tetanus toxoid, reduced diphtheria toxoid, and acellular [...] Panel - Chemistry sodium, serum 142 mmol/L 786-431 9904/06/30 potassium, serum 4.4 mmol/L 3.5-5.2 chloride, serum [...] Rate - Chemistry sodium, serum 139 mmol/L 226-501 4515/03/24 carbon dioxide, venous blood 22.4 mmol/L 21.0-32.0 [...] ... - Chemistry sodium, serum 143 mmol/L 438-171 5940/05/02 carbon dioxide, venous blood 25.6 mmol/L 21.0-32.0 [...] dipstick Negative Negative sodium, serum 142 mmol/L 633-942 5817/07/18 carbon dioxide, venous blood 27.8 mmol/L 21.0-32.0 [...] negative Encounters Code Encounter Date Provider Facility CPT-88576 Level 2 Est. Patient 12:23:38 CDT Jared Og MD [facility] CPT-34432 Level 3 Est. Patient 11:01:51 CDT Gab Padron MD [facility] CPT-43756 Level 3 Est. Patient 15:27:02 CDT Jared Og MD [facility] CPT-84578 Level 4 Est. Patient 09:25:27 CDT Gab Padron MD [facility] CPT-34674 Level 3 Est. Patient 10:29:41 CDT Rodrigo Sarah APRN [facility]-99164 Level 4 Est. Patient 17:51:05 CDT Gab Padron MD [facility]-90162 Level 3 Est. Patient 14:18:08 CDT Gab Padron MD [facility]-06641 Level 4 Est. Patient 10:18:54 CDT Gab Padron MD [facility]-59575 Level 3 Est. Patient 11:30:07 CDT Rodrigo Sarah APRN [facility]-19235 Level 4 Est. Patient 21:02:30 POST GRADUATE INTERN Gab Padron MD [facility]-34192 Level 3 Est. Patient 11:02:19 POST GRADUATE INTERN Gab Padron MD [facility]-21320 Level 4 Est. Patient 22:24:31 POST GRADUATE INTERN Gab Padron MD [facility]-85260 Level 3 Est. Patient 18:33:46 POST GRADUATE INTERN Gab Padron MD [facility]-43648 Level 3 Est. Patient 16:19:11 CDT Yolande Lindsay MD [facility]-62937 Level 3 Est. Patient 18:59:14 CDT Yolande Lindsay MD [facility]-44979 Level 4 Est. Patient 21:29:26 CDT Yolande Lindsay MD [facility]-62132 Level 3 Est. Patient 07:37:45 CDT Yolande Lindsay MD [facility]-86517 Level 3 Est. Patient 17:03:46 CDT Yolande Lindsay MD [facility]-39915 Level 4 Est. Patient 20:02:13 POST GRADUATE INTERN Yolande Lindsay MD [facility]-93133 Level 3 Est. Patient 16:02:07 POST GRADUATE INTERN Alexis Ordaz MD [facility] CPT-24058 Level 3 Est. Patient 12:41:24 POST GRADUATE INTERN Yolande Lindsay MD [facility] CPT-27136 Level 3 Est. Patient 15:41:20 POST GRADUATE INTERN Yolande Lindsay MD [facility] CPT-36384 Level 3 Est. Patient 13:20:02 POST GRADUATE INTERN Yolande Lindsay MD [facility] CPT-90038 Level 3 Est. Patient 15:00:38 CDT Jared Og MD [facility]-32772 Level 3 Est. Patient 10:22:32 CDT Yolande Lindsay MD [facility]-74058 Level 3 Est. Patient 17:12:58 CDT Yolande Lindsay MD [facility] CPT-00829 Level 4 Est. Patient 13:30:58 CDT Yolande Lindsay MD [facility] CPT-76022 Level 4 New Patient 09:02:42 CDT Jared Og MD [facility] CPT-18274 Level 3 Est. Patient 08:19:07 CDT Yolande Lindsay MD [facility] CPT-98870 Level 3 Est. Patient 12:00:13 POST GRADUATE INTERN Gab Padron MD [facility] CPT-00202 Level 3 Est. Patient 16:15:23 POST GRADUATE INTERN Yolande Lindsay MD [facility] CPT-07315 Level 2 Est. Patient 19:47:15 CDT Yolande Lindsay MD [facility] CPT-47452 Level 3 Est. Patient 21:38:31 CDT Yolande Lindsay MD [facility] CPT-26823 Level 3 Est. Patient 10:25:12 CDT Adiel PERAZA [facility] CPT-34648 Level 4 Est. Patient 10:51:58 CDT Yolande Lindsay MD [facility]-45812 Level 3 Est. Patient 14:04:55 POST GRADUATE INTERN Rodrigo Sarah [facility]-11072 Level 3 Est. Patient 10:46:35 POST GRADUATE INTERN Rodrigo Sarah [facility]-95497 Level 3 Est. Patient 14:24:37 POST GRADUATE INTERN Yolande Lindsay MD [facility]-78247 Level 3 Est. Patient 17:41:58 POST GRADUATE INTERN Yolande Lindsay MD [facility]-51651 Level 2 Est. Patient 22:01:41 POST GRADUATE INTERN Rodrigo Sarah [facility]-48623 Level 2 Est. Patient 22:01:11 POST GRADUATE INTERN Rodrigo Sarah [facility]-08264 Level 3 Est. Patient 10:12:29 POST GRADUATE INTERN Rodrigo Sarah [facility]-05639 Level 3 Est. Patient 11:05:44 CDT Alexis Ordaz MD [facility]-51958 Level 3 Est. Patient 14:57:20 CDT Yolande Lindsay MD [facility]-72555 Level 3 Est. Patient 14:40:57 CDT Yolande Lindsay MD [facility]-87700 Level 3 Est. Patient 20:55:40 CDT Yolande Lindsay MD [facility]-29267 Level 3 Est. Patient 12:42:38 POST GRADUATE INTERN Yolande Lindsay MD [facility]83597 Level 3 Est. Patient 11:54:49 POST GRADUATE INTERN Des Hines MD [facility]-43665 Level 3 Est. Patient 17:06:38 CDT Dewayne EPRAZA [facility] Procedures Code Procedure Name Date Entry Date Standard Description CPT-50391 Foot, left, comp min 3V - XRAY USE ONLY 09:24:54 CDT CPT-43765 Abd single AP View - XRAY USE ONLY 11:16:17 CDT CPT-07218 T spine AP/ Lat - XRAY USE ONLY 09:34:21 CDT CPT-85533 Chest 2V Frontal and Lat - XRAY USE ONLY 10:48:51 CDT CPT-82864 LS spine comp w obliq 13:28:00 POST GRADUATE INTERN CPT-J1040 Depo Medrol 80 mg (Methyl Prednisolone Acetate) 10:51: 28 POST GRADUATE INTERN CPT-J1100 Decadron 8mg (Dexamethasone) 10:51:28 POST GRADUATE INTERN CPT-01312 Abx/Therapy Injection 10:51:28 POST GRADUATE INTERN CPT-J1100 Decadron 8mg (Dexamethasone) 21:02:30 POST GRADUATE INTERN CPT-J1040 Depo Medrol 80 mg (Methyl Prednisolone Acetate) 21:02: 30 POST GRADUATE INTERN [id number] Event Monitor - MC Transmission 09:12:32 CDT 08/06 [id number] Event Monitor - MC review and interp 09:12:32 CDT [id number] Event Monitor - MC recording 09:12:32 CDT CPT-48724 EKG Trac and Interp 16:50:22 CDT CPT-J1030 Depo Medrol 40 mg (Methyl Prednisolone Acetate) 17:05: 54 CDT CPT-J1100 Decadron 4mg (Dexamethasone) 17:05:54 CDT CPT-81829 Abx/Therapy Injection 17:05:54 CDT CPT-J1100 Decadron 4mg (Dexamethasone) 16:55:28 CDT CPT-J1030 Depo Medrol 40 mg (Methyl Prednisolone Acetate) 16:55: 28 CDT CPT-44258 Ankle Complete - Min 3V 15:58:50 CDT CPT-78039 Knee 3V 15:58:50 CDT CPT-40894 Hip comp min 2V 15:58:50 CDT CPT-J2270 Morphine Sulfate 10 mg 14:25:44 POST GRADUATE INTERN CPT-J2550 Phenergan 12.5 mg (Promethazine) 14:25:44 POST GRADUATE INTERN CPT-18818 Abx/Therapy Injection 14:25:44 POST GRADUATE INTERN CPT-J2550 Phenergan 12.5 mg (Promethazine) 14:08:03 POST GRADUATE INTERN CPT-J2270 Morphine Sulfate 10 mg 14:08:03 POST GRADUATE INTERN CPT-82097 Bladder Scan 15:00:38 CDT CPT-TCMM Transitional Care Mgmt-Moderate 09:52:22 CDT CPT-J1030 Depo Medrol 40 mg (Methyl Prednisolone Acetate) 10:55: 18 CDT CPT-J1100 Decadron 4mg (Dexamethasone) 10:55:18 CDT CPT-02227 Abx/Therapy Injection 10:55:18 CDT CPT-J1030 Depo Medrol 40 mg (Methyl Prednisolone Acetate) 10:22: 32 CDT CPT-J1100 Decadron 4mg (Dexamethasone) 10:22:32 CDT CPT-18308 Postop F/U Visit 14:37:13 CDT CPT-04669 Ankle Complete - Min 3V 17:11:58 CDT CPT-35923 Foot comp min 3V 17:11:58 CDT CPT-32883 Bladder Scan 09:56:58 CDT CPT-64842 Postop F/U Visit 09:56:58 CDT CPT-78336 Cystoscopy 09:02:42 CDT CPT-36742 Bladder Scan 09:02:42 CDT CPT-31243 Abd single AP View 16:00:35 CDT CPT-87673 Administration single or combination vaccine inc oral 10 :15:43 CDT CPT-80160 Influenza split virus > age 3 10:15:43 CDT CPT-85473 Nail Avulsion 09:24:57 CDT CPT-OV Office Visit 11:15:41 CDT CPT-52501 Abx/Therapy Injection 10:51:30 CDT CPT-J3301 Kenalog 40 mg (Triamcinolone Acetonide) 10:25:12 CDT CPT-J1100 Decadron 4mg (Dexamethasone) 10:25:12 CDT CPT-36478 Anoscopy diagnostic 10:36:12 CDT CPT-OV Office Visit 15:34:31 CDT CPT-10695 Abx/Therapy Injection 08:21:15 POST GRADUATE INTERN CPT-J1885 Toradol 60 mg (Ketorolac) 10:46:35 POST GRADUATE INTERN CPT-OV Office Visit 19:51:16 POST GRADUATE INTERN CPT-46510 Spec Collection and Handling Fee 14:34:18 POST GRADUATE INTERN CPT-PV Prev. Care Visit 14:19:18 POST GRADUATE INTERN CPT-50401 Postop F/U Visit 14:47:51 POST GRADUATE INTERN CPT-81818 Postop F/U Visit 15:15:14 POST GRADUATE INTERN CPT-39292 Postop F/U Visit 14:41:43 CDT CPT-62325 Postop F/U Visit 15:47:46 CDT CPT-OV Office Visit 15:27:23 CDT CPT-OV Office Visit 17:20:34 CDT CPT-71582 Abx/Therapy Injection 15:05:57 CDT CPT-J1100 Decadron 8mg (Dexamethasone) 14:44:57 CDT CPT-J1040 Depo Medrol 80 mg (Methyl Prednisolone Acetate) 14:44: 57 CDT CPT-JTINJ Joint Injection 10:17:37 CDT CPT-37706 Administration 2+ single or combination vaccines inc oral 13:01:46 POST GRADUATE INTERN CPT-76396 Administration single or combination vaccine inc oral 13 :01:46 POST GRADUATE INTERN CPT-40953 Pneumovax 13:01:46 POST GRADUATE INTERN CPT-96131 Influenza split virus > age 3 13:01:46 POST GRADUATE INTERN CPT-17783 Administration single or combination vaccine inc oral 08 :56:49 CDT CPT-65178 Tdap 08:56:49 CDT
--- OUTSIDE RECORDS SUMMARY | 2017-03-22 00:13 | XMS REPORT | Clinical Summary ---
Author Author Admin, MARGRET Organization [employer] 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 Myocardial infarction, hx [...] MD Lumbago Cough 786.2 Active Jillina Tyrel SENIOR MARKETING MANAGER Cough 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 Jillina Frazellilian SENIOR MARKETING MANAGER 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 Anemia 285.9 Active Gab Padron MD Anemia, unspecified Conjunctivitis 372.30 Active Jillina Tyrel SENIOR MARKETING MANAGER Conjunctivitis, unspecified Sinusitis 473.9 Active Jillina Frazell SENIOR MARKETING MANAGER Unspecified sinusitis (chronic) Nonspecific syndrome suggestive of viral illness 079.99 Active Rodrigo Sarah SENIOR MARKETING MANAGER Unspecified viral infection Laryngitis 464.00 Active Silvestrellnacho Sarah SENIOR MARKETING MANAGER Acute laryngitis without mention of obstruction [...] TBDP 1 po q6hr PRN Nausea ONDANSETRON 32912833370 Active Jillina Frazell SENIOR MARKETING MANAGER Active IBUPROFEN 600 MG TAB 1 tablet by mouth every 6 hours for 7 days, then 1 tablet every 6 hours as needed. Take with food IBUPROFEN 38294854517 Active Jillina Frazell SENIOR MARKETING MANAGER Active BACTRIM DS 800-160 MG TAB 1 tab by mouth twice daily TRIMETHOPRIM-SULFAMETHOXAZOLE 70742536309 No Longer Active Gab Padron MD Active ADVAIR DISKUS 250-50 MCG/DOSE AEPB 1 puff BID FLUTICASONE- SALMETEROL 43709563280 Active Jillina Frazell SENIOR MARKETING MANAGER Active LEVOTHYROXINE SODIUM 75 MCG TABS Take 1 tab daily LEVOTHYROXINE SODIUM 83526741954 No Longer Active Mariana FLEMING Active SYNTHROID 88 MCG ORAL TABS Take one by mouth daily LEVOTHYROXINE SODIUM 13610720240 Active Mariana Cuadra RMA Active CHERATUSSIN AC 100-10 MG/5ML SYRP 1 tsp by mouth every 4 hours as needed for cough GUAIFENESIN-CODEINE 38179322081 No Longer Active Gab Padron MD Active POLYTRIM 97491-5.1 UNIT/ML-% SOLN 1 gtt to affected eye q3h x 7 days POLYMYXIN B-TRIMETHOPRIM 67261889885 No Longer Active Gab Padron MD Active FLUTICASONE PROPIONATE 50 MCG/ACT SUSP 1 to 2 sprays each nostril daily 04/21 FLUTICASONE PROPIONATE 83048319282 No Longer Active Gab Padron MD Active TRILEPTAL 600 MG TABS Take one 1 tablet in Am and 1 tablet at night OXCARBAZEPINE 36623779016 Active Gab Padron MD Active CEFDINIR 300 MG CAPS 1 po BID x 10 days CEFDINIR 69976476906 No Longer Active Rodrigo Sarah APRN Active CEFTIN 500 MG TAB 1 twice a day CEFUROXIME AXETIL 13129750018 No Longer Active Gab Padron MD Active AZITHROMYCIN 250 MG TABS 2 po qd x 1 day, then 1 po qd x 4 days AZITHROMYCIN 77417763950 No Longer Active Rodrigo Sarah APRN Active CLARITIN 10 MG TAB 1 tablet by mouth daily as needed for allergies LORATADINE 72843212611 Active Rodrigo Sarah APRN Active OXYCODONE HCL 5 MG ORAL CAPS 1 TAB PO Q HS OXYCODONE HCL 67586813003 No Longer Active Rodrigo Sarah APRN Active NIASPAN 500 MG ORAL CR-TABS 1 pill nightly x 1 week, then 2 pills nightly x 1 week, then 3 pills nightly x 1 week, then 4 pills nightly NIACIN (ANTIHYPERLIPIDEMIC) 77836600841 No Longer Active Silvestrellnacho Sarah APRN Active NIACIN 500 MG TABS 1 pill by mouth nightly x 1 week, then 2 pills x 1 week, then 3 pills x 1 week, then 4 pills nightly - take after evening meal, with applesauce or an apple NIACIN 25513021667 No Longer Active Yolande Lindsay MD PhD Active FISH OIL 1000 MG CAPS 3 pills daily OMEGA-3 FATTY ACIDS 87522060774 Active Yolande Lindsay MD PhD Active TRIAMCINOLONE ACETONIDE 0.1 % CREA apply bid sparingly to rash TRIAMCINOLONE ACETONIDE 89161071465 Active Yolande Lindsay MD PhD Active FUROSEMIDE 20 MG TAB 1 tablet by mouth daily FUROSEMIDE 17439766792 Active Tisha Lambert APRN Active LISINOPRIL 20 MG ORAL TABS 1 tab by mouth daily LISINOPRIL 50601639250 Active Gab Padron MD Active FUROSEMIDE 20 MG TABS 1 pill by mouth daily, for edema FUROSEMIDE 15581313759 No Longer Active Yolande Lindsay MD PhD Active ATORVASTATIN CALCIUM 10 MG TABS 1 pill by mouth daily, for cholesterol 09/06 ATORVASTATIN CALCIUM 43826938974 Active Gab Padron MD Active CALCIUM 600+D PLUS MINERALS 600-400 MG-UNIT ORAL CHEW 1 tab by mouth daily CALCIUM CARBONATE-VIT D-MIN 92715401960 No Longer Active Yolande Lindsay MD PhD Active CYCLOBENZAPRINE HCL 10 MG TABS 1 tablet by mouth three times daily as needed for muscle spasm/pain CYCLOBENZAPRINE HCL 79043349994 Active Yolande Lindsay MD PhD Active ONDANSETRON 4 MG TBDP 1 q4h PRN nausea ONDANSETRON 53290045805 Active Yolande Lindsay MD PhD Active ADULT ASPIRIN EC LOW STRENGTH 81 MG TBEC Take 1 tablet by mouth daily 2014 ASPIRIN 15099618163 No Longer Active Yolande Lindsay MD PhD Active ZOFRAN ODT 4 MG TBDP 1 pill dissolved by mouth every 4 hours if needed for nausea ONDANSETRON 95378485980 No Longer Active Yolande Lindsay MD PhD Active CEFTIN 500 MG TAB 1 twice a day CEFUROXIME AXETIL 87898188910 No Longer Active Yolande Lindsay MD PhD Active ALBUTEROL SULFATE 0.083 % NEBU SOLN one vial per nebulizer every 4-6 hours as needed ALBUTEROL SULFATE 64592261842 No Longer Active Alexis Ordaz MD Active DOXYCYCLINE HYCLATE 100 MG CAP 1 cap by mouth twice daily DOXYCYCLINE HYCLATE 15934702014 No Longer Active Yolande Lindsay MD PhD Active CYCLOBENZAPRINE HCL 10 MG TABS 1/2 - 1 tab by mouth three times daily if needed for spasms/pain CYCLOBENZAPRINE HCL 39432971087 No Longer Active Yolande Lindsay MD PhD Active AZITHROMYCIN 250 MG TABS 2 pills on day 1, then 1 pill daily x 4 days AZITHROMYCIN 33370085867 No Longer Active Yolande Lindsay MD PhD Active XOPENEX 1.25 MG/3ML NEBU 1 neb every 4 hours if needed for cough/congestion LEVALBUTEROL HCL 09565965838 No Longer Active Yolande Lindsay MD PhD Active DOXYCYCLINE HYCLATE 100 MG TAB 1 tab twice a day for 14 days 2013 DOXYCYCLINE HYCLATE 83593010328 No Longer Active Yolande Lindsay MD PhD Active PREVACID 30 MG CPDR Take 1 tablet by mouth daily-PRN LANSOPRAZOLE 65587512924 No Longer Active Yolande Lindsay MD PhD Active PA VITAMIN D-3 2000 UNIT CAPS 1 CAP PO DAILY CHOLECALCIFEROL 97632535519 No Longer Active Yolande Lindsay MD PhD Active CEFDINIR 300 MG CAPS by mouth twice a day CEFDINIR 54087249781 No Longer Active Gab Padron MD Active TOPAMAX 50 MG TABS 1 PO twice daily TOPIRAMATE 00011749634 Active Yolande Lindsay MD PhD Active AZITHROMYCIN 250 MG TABS 2 po qd x 1 day, then 1 po qd x 4 days AZITHROMYCIN 77465407631 No Longer Active Yolande Lindsay MD PhD Active DICLOFENAC SODIUM 75 MG TBEC 1 tablet by q 12 hours PRN headaches DICLOFENAC SODIUM 36850974243 No Longer Active Yolande Lindsay MD PhD Active FLONASE 50 MCG/ACT SUSP 1 spray each nostril am and hs FLUTICASONE PROPIONATE 38535835076 No Longer Active Todd Callaway MD Active ANUSOL-HC 25 MG SUPPOSITORY 1 rectally twice a day as needed for hemorrhoids HYDROCORTISONE JAYDEN (RECTAL) 26086433955 No Longer Active Yolande Lindsay MD PhD Active ANUSOL-HC 25 MG SUPPOSITORY 1 suppository rectally each evening as needed for anal fissure HYDROCORTISONE JAYDEN (RECTAL) 81183247900 No Longer Active LONNIE Iglesias Active VALIUM 5 MG TAB 1 po 30 minutes prior to your MRI DIAZEPAM 07371850744 No Longer Active LONNIE Iglesias Active METHOCARBAMOL 750 MG TABS 1 PO QID PRN METHOCARBAMOL 65579488854 No Longer Active Daphne Wetzel SENIOR MARKETING MANAGER Active NITROSTAT 0.4 MG SUBL as directed NITROGLYCERIN 13086342957 No Longer Active Rodrigo Sarah APRN Active ROBAXIN-750 750 MG TABS 2 four times a day for 3 days as needed for muscle spasm, then 1 four times a day as needed METHOCARBAMOL 07289386466 No Longer Active Rodrigo Sarah APRN Active HYDROCODONE-ACETAMINOPHEN 5-325 MG TABS 1 q 4-6 hrs prn HYDROCODONE-ACETAMINOPHEN 26241572153 No Longer Active Silvestrellnacho Sarah APRN Active VERAPAMIL HCL CR 180 MG CR-TABS TAKE 1 TAB DAILY VERAPAMIL HCL 57003590658 No Longer Active Yolande Lindsay MD PhD Active BACTRIM DS 800-160 MG TAB 1 tab by mouth twice daily TRIMETHOPRIM-SULFAMETHOXAZOLE 00509193758 No Longer Active Yolande Lindsay MD PhD Active NEXIUM 40 MG PACK 1 by mouth daily ESOMEPRAZOLE MAGNESIUM 09402118871 No Longer Active Des Hines MD Active EPIPEN 2-CHARLETTE 0.3 MG/0.3ML OMARI as need for allergic reaction EPINEPHRINE 16834970536 Active Yolande Lindsay MD PhD Active NEXIUM 40 MG CPDR 1 PO Q D DAY ESOMEPRAZOLE MAGNESIUM 06350665448 No Longer Active Sadia Orlando RN Active NEXIUM 40 MG PACK 1 by mouth daily NEXIUM 40 MG PACK ESOMEPRAZOLE MAGNESIUM Inactive VERAPAMIL HCL CR 180 MG CR-TABS TAKE 1 TAB DAILY VERAPAMIL HCL CR 180 MG CR-TABS VERAPAMIL HCL Inactive HYDROCODONE-ACETAMINOPHEN 5-325 MG TABS 1 q 4-6 hrs prn HYDROCODONE-ACETAMINOPHEN 5-325 MG TABS 457739 HYDROCODONE-ACETAMINOPHEN Inactive ROBAXIN-750 750 MG TABS 2 four times a day for 3 days as needed for muscle spasm, then 1 four times a day as needed ROBAXIN-750 750 MG TABS 461369 METHOCARBAMOL Inactive NITROSTAT 0.4 MG SUBL as directed NITROSTAT 0.4 MG SUBL NITROGLYCERIN Inactive METHOCARBAMOL 750 MG TABS 1 PO QID PRN METHOCARBAMOL 750 MG TABS 148627 METHOCARBAMOL Inactive VALIUM 5 MG TAB 1 po 30 minutes prior to your MRI VALIUM 5 MG TAB 856740 DIAZEPAM Inactive ANUSOL-HC 25 MG SUPPOSITORY 1 suppository rectally each evening as needed for anal fissure ANUSOL-HC 25 MG SUPPOSITORY 6444554 HYDROCORTISONE JAYDEN (RECTAL) Inactive ANUSOL-HC 25 MG SUPPOSITORY 1 rectally twice a day as needed for hemorrhoids ANUSOL-HC 25 MG SUPPOSITORY 9886510 HYDROCORTISONE JAYDEN (RECTAL) Inactive FLONASE 50 MCG/ACT SUSP 1 spray each nostril am and hs FLONASE 50 MCG/ACT SUSP FLUTICASONE PROPIONATE Inactive DICLOFENAC SODIUM 75 MG TBEC 1 tablet by q 12 hours PRN headaches DICLOFENAC SODIUM 75 MG TBEC 079030 DICLOFENAC SODIUM Inactive PA VITAMIN D-3 2000 UNIT CAPS 1 CAP PO DAILY PA VITAMIN D-3 2000 UNIT CAPS CHOLECALCIFEROL Inactive PREVACID 30 MG CPDR Take 1 tablet by mouth daily-PRN PREVACID 30 MG CPDR 844854 LANSOPRAZOLE Inactive DOXYCYCLINE HYCLATE 100 MG TAB 1 tab twice a day for 14 days 2013 DOXYCYCLINE HYCLATE 100 MG TAB 7976482 DOXYCYCLINE HYCLATE Inactive XOPENEX 1.25 MG/3ML NEBU 1 neb every 4 hours if needed for cough/congestion XOPENEX 1.25 MG/3ML NEBU 753890 LEVALBUTEROL HCL Inactive CYCLOBENZAPRINE HCL 10 MG TABS 1/2 - 1 tab by mouth three times daily if needed for spasms/pain CYCLOBENZAPRINE HCL 10 MG TABS 619557 CYCLOBENZAPRINE HCL Inactive ALBUTEROL SULFATE 0.083 % NEBU SOLN one vial per nebulizer every 4-6 hours as needed ALBUTEROL SULFATE 0.083 % NEBU SOLN 868036 ALBUTEROL SULFATE Inactive CEFTIN 500 MG TAB 1 twice a day CEFTIN 500 MG TAB 957929 CEFUROXIME AXETIL Inactive ZOFRAN ODT 4 MG TBDP 1 pill dissolved by mouth every 4 hours if needed for nausea ZOFRAN ODT 4 MG TBDP 018404 ONDANSETRON Inactive ADULT ASPIRIN EC LOW STRENGTH 81 MG TBEC Take 1 tablet by mouth daily 2014 ADULT ASPIRIN EC LOW STRENGTH 81 MG TBEC 468189 ASPIRIN Inactive CALCIUM 600+D PLUS MINERALS 600-400 [...] or an apple NIACIN 500 MG TABS 905738 NIACIN Inactive NIASPAN 500 MG ORAL CR-TABS 1 pill nightly x 1 week, then 2 pills nightly x 1 week, then 3 pills nightly x 1 week, then 4 pills nightly NIASPAN 500 MG ORAL CR-TABS NIACIN (ANTIHYPERLIPIDEMIC) Inactive OXYCODONE HCL 5 MG ORAL CAPS 1 TAB PO Q HS OXYCODONE HCL 5 MG ORAL CAPS 0659641 OXYCODONE HCL Inactive FLUTICASONE PROPIONATE 50 MCG/ACT SUSP 1 to 2 sprays each nostril daily 04/21 FLUTICASONE PROPIONATE 50 MCG/ACT SUSP 720383 FLUTICASONE PROPIONATE Inactive POLYTRIM 07428-5.1 UNIT/ML-% SOLN 1 gtt to affected eye q3h x 7 days POLYTRIM 05887-3.1 UNIT/ML-% SOLN 477697 POLYMYXIN B- TRIMETHOPRIM Inactive CHERATUSSIN AC 100-10 MG/5ML SYRP 1 tsp by mouth every 4 hours as needed for cough CHERATUSSIN AC 100-10 MG/5ML SYRP 922466 GUAIFENESIN-CODEINE Inactive LEVOTHYROXINE SODIUM 75 MCG TABS Take 1 tab daily LEVOTHYROXINE SODIUM 75 MCG TABS 868100 LEVOTHYROXINE SODIUM Inactive BACTRIM DS 800-160 MG TAB 1 tab by mouth twice daily BACTRIM DS 800-160 MG TAB 295178 TRIMETHOPRIM-SULFAMETHOXAZOLE Inactive AZITHROMYCIN 250 MG TABS 2 po qd x 1 day, then 1 po qd x 4 days AZITHROMYCIN 250 MG TABS 3555464 AZITHROMYCIN Inactive CEFDINIR 300 MG CAPS by mouth twice a day CEFDINIR 300 MG CAPS 630402 CEFDINIR Inactive AZITHROMYCIN 250 MG TABS 2 pills on day 1, then 1 pill daily x 4 days AZITHROMYCIN 250 MG TABS 5409007 AZITHROMYCIN Inactive DOXYCYCLINE HYCLATE 100 MG CAP 1 cap by mouth twice daily DOXYCYCLINE HYCLATE 100 MG CAP 6131408 DOXYCYCLINE HYCLATE Inactive FUROSEMIDE 20 MG TABS 1 pill by mouth daily, for edema FUROSEMIDE 20 MG TABS 040273 FUROSEMIDE Inactive AZITHROMYCIN 250 MG TABS 2 po qd x 1 day, then 1 po qd x 4 days AZITHROMYCIN 250 MG TABS 7290891 AZITHROMYCIN Inactive CEFTIN 500 MG TAB 1 twice a day CEFTIN 500 MG TAB 806545 CEFUROXIME AXETIL Inactive CEFDINIR 300 MG CAPS 1 po BID x 10 days CEFDINIR 300 MG CAPS 617855 CEFDINIR Inactive BACTRIM DS 800-160 MG TAB 1 tab by mouth twice daily BACTRIM DS 800-160 MG TAB 776414 TRIMETHOPRIM-SULFAMETHOXAZOLE Inactive Immunizations Vaccine Administration Date Value Standard Description Seasonal influenza vaccine, injectable, containing preservative, for > 3 years old (Afluria, FluLaval, Fluzone, Fluvirin, Fluarix, Agriflu(>=18 yo)) Fluzone (>3 yrs.) [CIS542] Influenza, seasonal, injectable influenza immunization (Flu Vax) has been administered Influenza - Unspecified Formulation [CVX88] influenza virus vaccine, unspecified formulation Seasonal influenza vaccine, injectable, containing preservative, for > 3 years old (Afluria, FluLaval, Fluzone, Fluvirin, Fluarix, Agriflu(>=18 yo)) Fluzone (>3 yrs.) [UYS589] Influenza, seasonal, injectable pneumococcal immunization administered Pneumovax 23 [CVX33] pneumococcal polysaccharide vaccine, 23 valent dT (Diphtheria and Tetanus) booster given given Td(adult) unspecified formulation Boostrix (Tetanus toxoid, reduced diphtheria toxoid and acellular pertussis vaccine, adsorbed), booster Boostrix [WLT265] tetanus toxoid, reduced diphtheria toxoid, and acellular [...] Panel - Chemistry sodium, serum 142 mmol/L 743-243 5941/06/30 potassium, serum 4.4 mmol/L 3.5-5.2 chloride, serum 108 mmol/L 98-107 carbon dioxide, venous blood 25.1 mmol/L 21.0-32.0 blood glucose 82 mg/dL 65-110 calcium, serum 9.1 mg/dL 8.5-10.1 urea nitrogen, blood 18 mg/dL 7-18 creatinine, serum 1.31 mg/dL 0.55-1.30 Lab Report: [facility] Advanced Lipid and Inlammation Panel /23457 - Chemistry cholesterol, serum 148 mg/dL 327-862 9212/09/02 HDL cholesterol, serum 55 mg/dL > OR=46 [...] (L) - Chemistry sodium, serum 145 mmol/L 918-503 3451/09/02 potassium, serum 4.6 mmol/L 3.5-5.2 chloride, serum [...] Rate - Chemistry sodium, serum 139 mmol/L 278-073 5036/03/24 carbon dioxide, venous blood 22.4 mmol/L 21.0-32.0 [...] ... - Chemistry sodium, serum 143 mmol/L 222-143 3578/05/02 carbon dioxide, venous blood 25.6 mmol/L 21.0-32.0 [...] Negative mg/dL Negative sodium, serum 142 mmol/L 326-326 9552/07/18 carbon dioxide, venous blood 27.8 mmol/L 21.0-32.0 [...] mg/dL Encounters Code Encounter Date Provider Facility CPT-66208 Level 3 Est. Patient 10:29:41 CDT Rodrigo Sarah [facility] CPT-35422 Level 4 Est. Patient 17:51:05 CDT Gab Padron MD [facility] CPT-25996 Level 3 Est. Patient 14:18:08 CDT Gab Padron MD [facility] CPT-56552 Level 4 Est. Patient 10:18:54 CDT Gab Padron MD [facility] CPT-45982 Level 3 Est. Patient 11:30:07 CDT Rodrigo Sarah [facility] CPT-90126 Level 4 Est. Patient 21:02:30 GRINDING OPERATOR Gab Padron MD [facility] CPT-08997 Level 3 Est. Patient 11:02:19 GRINDING OPERATOR Gab Padron MD [facility] CPT-21080 Level 4 Est. Patient 22:24:31 GRINDING OPERATOR Gab Padron MD [facility] CPT-96039 Level 3 Est. Patient 18:33:46 GRINDING OPERATOR Gab Padron MD [facility] CPT-96211 Level 3 Est. Patient 16:19:11 CDT Yolande Lindsay MD [facility]-79418 Level 3 Est. Patient 18:59:14 CDT Yolande Lindsay MD [facility]-48620 Level 4 Est. Patient 21:29:26 CDT Yolande Lindsay MD [facility]-12688 Level 3 Est. Patient 07:37:45 CDT Yolande Lindsay MD [facility]-23965 Level 3 Est. Patient 17:03:46 CDT Yolande Lindsay MD [facility]-97422 Level 4 Est. Patient 20:02:13 GRINDING OPERATOR Yolande Lindsay MD [facility]-39570 Level 3 Est. Patient 16:02:07 GRINDING OPERATOR Alexis Ordaz MD [facility]-34283 Level 3 Est. Patient 12:41:24 GRINDING OPERATOR Yolande Lindsay MD [facility]-42524 Level 3 Est. Patient 15:41:20 GRINDING OPERATOR Yolande Lindsay MD [facility]-58386 Level 3 Est. Patient 13:20:02 GRINDING OPERATOR Yolande Lindsay MD [facility]-02582 Level 3 Est. Patient 15:00:38 CDT Jared Og MD [facility]-14867 Level 3 Est. Patient 10:22:32 CDT Yolande Lindsay MD [facility]-07870 Level 3 Est. Patient 17:12:58 CDT Yoalnde Lindsay MD [facility]-19902 Level 4 Est. Patient 13:30:58 CDT Yolande Lindsay MD [facility]-66180 Level 4 New Patient 09:02:42 CDT Jared Og MD [facility]-09703 Level 3 Est. Patient 08:19:07 CDT Yolande Lindsay MD [facility]-11668 Level 3 Est. Patient 12:00:13 GRINDING OPERATOR Gab Padron MD [facility]-38868 Level 3 Est. Patient 16:15:23 GRINDING OPERATOR Yolande Lindsay MD [facility]95626 Level 2 Est. Patient 19:47:15 CDT Yolande Lindsay MD [facility]27472 Level 3 Est. Patient 21:38:31 CDT Yolande Lindsay MD [facility]07670 Level 3 Est. Patient 10:25:12 CDT Adiel PERAZA [facility]-54749 Level 4 Est. Patient 10:51:58 CDT Yolande Lindsay MD [facility]-66119 Level 3 Est. Patient 14:04:55 GRINDING OPERATOR Rodrigo Sarah [facility]-62763 Level 3 Est. Patient 10:46:35 GRINDING OPERATOR Rodrigo Sarah [facility]-81053 Level 3 Est. Patient 14:24:37 GRINDING OPERATOR Yolande Lindsay MD [facility]71779 Level 3 Est. Patient 17:41:58 GRINDING OPERATOR Yolande Lindsay MD [facility]13030 Level 2 Est. Patient 22:01:41 GRINDING OPERATOR Rodrigo Sarah [facility]-88605 Level 2 Est. Patient 22:01:11 GRINDING OPERATOR Rodrigo Sarah [facility]-41669 Level 3 Est. Patient 10:12:29 GRINDING OPERATOR Rodrigo Sarah [facility]-83705 Level 3 Est. Patient 11:05:44 CDT Alexis Ordaz MD [facility] CPT-32597 Level 3 Est. Patient 14:57:20 CDT Yolande Lindsay MD [facility] CPT-95671 Level 3 Est. Patient 14:40:57 CDT Yolande Lindsay MD [facility] CPT-03008 Level 3 Est. Patient 20:55:40 CDT Yolande Lindsay MD [facility] CPT-63321 Level 3 Est. Patient 12:42:38 GRINDING OPERATOR Yolande Lindsay MD [facility] CPT-62345 Level 3 Est. Patient 11:54:49 GRINDING OPERATOR Des Hines MD [facility] CPT-58779 Level 3 Est. Patient 17:06:38 CDT Dewayne PERAZA [facility] Procedures Code Procedure Name Date Entry Date Standard Description CPT-32464 Chest 2V Frontal and Lat - XRAY USE ONLY 10:48:51 CDT CPT-70225 LS spine comp w obliq 13:28:00 GRINDING OPERATOR CPT-J1040 Depo Medrol 80 mg (Methyl Prednisolone Acetate) 10:51: 28 GRINDING OPERATOR CPT-J1100 Decadron 8mg (Dexamethasone) 10:51:28 GRINDING OPERATOR CPT-68027 Abx/Therapy Injection 10:51:28 GRINDING OPERATOR CPT-J1100 Decadron 8mg (Dexamethasone) 21:02:30 GRINDING OPERATOR CPT-J1040 Depo Medrol 80 mg (Methyl Prednisolone Acetate) 21:02: 30 GRINDING OPERATOR [id number] Event Monitor - MC Transmission 09:12:32 CDT 08/06 [id number] Event Monitor - MC review and interp 09:12:32 CDT [id number] Event Monitor - MC recording 09:12:32 CDT CPT-78062 EKG Trac and Interp 16:50:22 CDT CPT-J1030 Depo Medrol 40 mg (Methyl Prednisolone Acetate) 17:05: 54 CDT CPT-J1100 Decadron 4mg (Dexamethasone) 17:05:54 CDT CPT-25558 Abx/Therapy Injection 17:05:54 CDT CPT-J1100 Decadron 4mg (Dexamethasone) 16:55:28 CDT CPT-J1030 Depo Medrol 40 mg (Methyl Prednisolone Acetate) 16:55: 28 CDT CPT-33229 Ankle Complete - Min 3V 15:58:50 CDT CPT-51183 Knee 3V 15:58:50 CDT CPT-69331 Hip comp min 2V 15:58:50 CDT CPT-J2270 Morphine Sulfate 10 mg 14:25:44 GRINDING OPERATOR CPT-J2550 Phenergan 12.5 mg (Promethazine) 14:25:44 GRINDING OPERATOR CPT-46191 Abx/Therapy Injection 14:25:44 GRINDING OPERATOR CPT-J2550 Phenergan 12.5 mg (Promethazine) 14:08:03 GRINDING OPERATOR CPT-J2270 Morphine Sulfate 10 mg 14:08:03 GRINDING OPERATOR CPT-58849 Bladder Scan 15:00:38 CDT CPT-TCMM Transitional Care Mgmt-Moderate 09:52:22 CDT CPT-J1030 Depo Medrol 40 mg (Methyl Prednisolone Acetate) 10:55: 18 CDT CPT-J1100 Decadron 4mg (Dexamethasone) 10:55:18 CDT CPT-53866 Abx/Therapy Injection 10:55:18 CDT CPT-J1030 Depo Medrol 40 mg (Methyl Prednisolone Acetate) 10:22: 32 CDT CPT-J1100 Decadron 4mg (Dexamethasone) 10:22:32 CDT CPT-22212 Postop F/U Visit 14:37:13 CDT CPT-56785 Ankle Complete - Min 3V 17:11:58 CDT CPT-90020 Foot comp min 3V 17:11:58 CDT CPT-55719 Bladder Scan 09:56:58 CDT CPT-63442 Postop F/U Visit 09:56:58 CDT CPT-47220 Cystoscopy 09:02:42 CDT CPT-30985 Bladder Scan 09:02:42 CDT CPT-05086 Abd single AP View 16:00:35 CDT CPT-40747 Administration single or combination vaccine inc oral 10 :15:43 CDT CPT-39177 Influenza split virus > age 3 10:15:43 CDT CPT-70823 Nail Avulsion 09:24:57 CDT CPT-OV Office Visit 11:15:41 CDT CPT-91120 Abx/Therapy Injection 10:51:30 CDT CPT-J3301 Kenalog 40 mg (Triamcinolone Acetonide) 10:25:12 CDT CPT-J1100 Decadron 4mg (Dexamethasone) 10:25:12 CDT CPT-48698 Anoscopy diagnostic 10:36:12 CDT CPT-OV Office Visit 15:34:31 CDT CPT-78009 Abx/Therapy Injection 08:21:15 GRINDING OPERATOR CPT-J1885 Toradol 60 mg (Ketorolac) 10:46:35 GRINDING OPERATOR CPT-OV Office Visit 19:51:16 GRINDING OPERATOR CPT-59759 Spec Collection and Handling Fee 14:34:18 GRINDING OPERATOR CPT-PV Prev. Care Visit 14:19:18 GRINDING OPERATOR CPT-10806 Postop F/U Visit 14:47:51 GRINDING OPERATOR CPT-04385 Postop F/U Visit 15:15:14 GRINDING OPERATOR CPT-28140 Postop F/U Visit 14:41:43 CDT CPT-03856 Postop F/U Visit 15:47:46 CDT CPT-OV Office Visit 15:27:23 CDT CPT-OV Office Visit 17:20:34 CDT CPT-14821 Abx/Therapy Injection 15:05:57 CDT CPT-J1100 Decadron 8mg (Dexamethasone) 14:44:57 CDT CPT-J1040 Depo Medrol 80 mg (Methyl Prednisolone Acetate) 14:44: 57 CDT CPT-JTINJ Joint Injection 10:17:37 CDT CPT-77950 Administration 2+ single or combination vaccines inc oral 13:01:46 GRINDING OPERATOR CPT-77023 Administration single or combination vaccine inc oral 13 :01:46 GRINDING OPERATOR CPT-53499 Pneumovax 13:01:46 GRINDING OPERATOR CPT-81455 Influenza split virus > age 3 13:01:46 GRINDING OPERATOR CPT-49520 Administration single or combination vaccine inc oral 08 :56:49 CDT CPT-25396 Tdap 08:56:49 CDT
--- OUTSIDE RECORDS SUMMARY | 2017-03-22 00:15 | XMS REPORT | Clinical Summary ---
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 TRAZODONE HCL sees things Critical Active Dewayne [...] Esophageal reflux RECTAL BLEEDING 569.3 Resolved Yolande Linsday MD PhD Hemorrhage of rectum and anus [...] apply bid sparingly to rash TRIAMCINOLONE ACETONIDE 41780239257 Active Yolande Lindsay MD PhD Active FUROSEMIDE 20 MG TAB 1 tablet by mouth daily FUROSEMIDE 91680406687 Active Yolande Lindsay MD PhD Active LISINOPRIL 20 MG ORAL TABS 1 tab by mouth daily LISINOPRIL 33750581603 Active Yolande Lindsay MD PhD Active FUROSEMIDE 20 MG TABS 1 pill by mouth daily, for edema FUROSEMIDE 38302399259 No Longer Active Yolande Lindsay MD PhD Active FISH OIL 1000 MG CAPS 1 pill daily x 1 week, then 2 pills daily x 1 week, then 3 pills daily x 1 week, then 4 pills daily OMEGA-3 FATTY ACIDS 41888048669 Active Yolande Lindsay MD PhD Active NIACIN 500 MG TABS 1 pill by mouth nightly x 1 week, then 2 pills x 1 week, then 3 pills x 1 week, then 4 pills nightly - take after evening meal, with applesauce or an apple NIACIN 66052935067 Active Yolande Lindsay MD PhD Active ATORVASTATIN CALCIUM 10 MG TABS 1 pill by mouth daily, for cholesterol 09/06 ATORVASTATIN CALCIUM 36321082075 Active Yolande Lindsay MD PhD Active CALCIUM 600+D PLUS MINERALS 600-400 MG-UNIT ORAL CHEW 1 tab by mouth daily CALCIUM CARBONATE-VIT D-MIN 43918465271 No Longer Active Yolande Lindsay MD PhD Active CYCLOBENZAPRINE HCL 10 MG TABS 1 tablet by mouth three times daily as needed for muscle spasm/pain CYCLOBENZAPRINE HCL 75726626495 Active Yolande Lindsay MD PhD Active ONDANSETRON 4 MG TBDP 1 q4h PRN nausea ONDANSETRON 11316312515 Active Yolande Lindsay MD PhD Active ADULT ASPIRIN EC LOW STRENGTH 81 MG TBEC Take 1 tablet by mouth daily 2014 ASPIRIN 31902720538 No Longer Active Yolande Lindsay MD PhD Active ZOFRAN ODT 4 MG TBDP 1 pill dissolved by mouth every 4 hours if needed for nausea ONDANSETRON 50842217956 No Longer Active Yolande Lindsay MD PhD Active CEFTIN 500 MG TAB 1 twice a day CEFUROXIME AXETIL 05323825604 No Longer Active Yolande Lindsay MD PhD Active ALBUTEROL SULFATE 0.083 % NEBU SOLN one vial per nebulizer every 4-6 hours as needed ALBUTEROL SULFATE 53205212688 No Longer Active Alexis Ordaz MD Active DOXYCYCLINE HYCLATE 100 MG CAP 1 cap by mouth twice daily DOXYCYCLINE HYCLATE 33118516420 No Longer Active Yolande Lindsay MD PhD Active CYCLOBENZAPRINE HCL 10 MG TABS 1/2 - 1 tab by mouth three times daily if needed for spasms/pain CYCLOBENZAPRINE HCL 47970776314 No Longer Active Yolande Lindsay MD PhD Active TRILEPTAL 600 MG TABS Take one 1/2 tablet in Am and 1 tablet at night OXCARBAZEPINE 65509334586 Active Yolande Lindsay MD PhD Active AZITHROMYCIN 250 MG TABS 2 pills on day 1, then 1 pill daily x 4 days AZITHROMYCIN 84228400581 No Longer Active Yolande Lindsay MD PhD Active XOPENEX 1.25 MG/3ML NEBU 1 neb every 4 hours if needed for cough/congestion LEVALBUTEROL HCL 42212316714 No Longer Active Yolande Lindsay MD PhD Active DOXYCYCLINE HYCLATE 100 MG TAB 1 tab twice a day for 14 days 2013 DOXYCYCLINE HYCLATE 09244795315 No Longer Active Yolande Lindsay MD PhD Active LEVOTHYROXINE SODIUM 75 MCG TABS Take 1 tab daily LEVOTHYROXINE SODIUM 06908032868 Active Yolande Lindsay MD PhD Active PREVACID 30 MG CPDR Take 1 tablet by mouth daily-PRN LANSOPRAZOLE 09717087699 No Longer Active Yolande Lindsay MD PhD Active PA VITAMIN D-3 2000 UNIT CAPS 1 CAP PO DAILY CHOLECALCIFEROL 18061794913 No Longer Active Yolande Lindsay MD PhD Active CEFDINIR 300 MG CAPS by mouth twice a day CEFDINIR 71831882665 No Longer Active Gab Padron MD Active TOPAMAX 50 MG TABS 1 PO twice daily TOPIRAMATE 61332373964 Active Yolande Lindsay MD PhD Active AZITHROMYCIN 250 MG TABS 2 po qd x 1 day, then 1 po qd x 4 days AZITHROMYCIN 15545111052 No Longer Active Yolande Lindsay MD PhD Active DICLOFENAC SODIUM 75 MG TBEC 1 tablet by q 12 hours PRN headaches DICLOFENAC SODIUM 69533752872 No Longer Active Yolande Lindsay MD PhD Active FLONASE 50 MCG/ACT SUSP 1 spray each nostril am and hs FLUTICASONE PROPIONATE 66773986462 No Longer Active Todd Callaway MD Active ANUSOL-HC 25 MG SUPPOSITORY 1 rectally twice a day as needed for hemorrhoids HYDROCORTISONE JAYDEN (RECTAL) 65001898276 No Longer Active Yolande Lindsay MD PhD Active ANUSOL-HC 25 MG SUPPOSITORY 1 suppository rectally each evening as needed for anal fissure HYDROCORTISONE JAYDEN (RECTAL) 02128016488 No Longer Active LONNIE Iglesias Active VALIUM 5 MG TAB 1 po 30 minutes prior to your MRI DIAZEPAM 74394685633 No Longer Active LONNIE Iglesias Active METHOCARBAMOL 750 MG TABS 1 PO QID PRN METHOCARBAMOL 32631286192 No Longer Active Daphne Wetzel APRN Active NITROSTAT 0.4 MG SUBL as directed NITROGLYCERIN 23731947937 No Longer Active Rodrigo Sarah APRN Active ROBAXIN-750 750 MG TABS 2 four times a day for 3 days as needed for muscle spasm, then 1 four times a day as needed METHOCARBAMOL 52889685218 No Longer Active Rodrigo Sarah APRN Active HYDROCODONE-ACETAMINOPHEN 5-325 MG TABS 1 q 4-6 hrs prn HYDROCODONE-ACETAMINOPHEN 90275395928 No Longer Active Rodrigo Sarah APRN Active VERAPAMIL HCL CR 180 MG CR-TABS TAKE 1 TAB DAILY VERAPAMIL HCL 91464440481 No Longer Active Yolande Lindsay MD PhD Active BACTRIM DS 800-160 MG TAB 1 tab by mouth twice daily TRIMETHOPRIM-SULFAMETHOXAZOLE 53338917340 No Longer Active Yolande Lindsay MD PhD Active NEXIUM 40 MG PACK 1 by mouth daily ESOMEPRAZOLE MAGNESIUM 99782430877 No Longer Active Des iHnes MD Active EPIPEN 2-CHARLETTE 0.3 MG/0.3ML OMARI as need for allergic reaction EPINEPHRINE 57332986214 Active Yolande Lindsay MD PhD Active NEXIUM 40 MG CPDR 1 PO Q D DAY ESOMEPRAZOLE MAGNESIUM 42354592485 No Longer Active Sadia Perry RN Active NEXIUM 40 MG PACK 1 by mouth daily NEXIUM 40 MG PACK ESOMEPRAZOLE MAGNESIUM Inactive VERAPAMIL HCL CR 180 MG CR-TABS TAKE 1 TAB DAILY VERAPAMIL HCL CR 180 MG CR-TABS VERAPAMIL HCL Inactive HYDROCODONE-ACETAMINOPHEN 5-325 MG TABS 1 q 4-6 hrs prn HYDROCODONE-ACETAMINOPHEN 5-325 MG TABS 603666 HYDROCODONE-ACETAMINOPHEN Inactive ROBAXIN-750 750 MG TABS 2 four times a day for 3 days as needed for muscle spasm, then 1 four times a day as needed ROBAXIN-750 750 MG TABS 096347 METHOCARBAMOL Inactive NITROSTAT 0.4 MG SUBL as directed NITROSTAT 0.4 MG SUBL NITROGLYCERIN Inactive METHOCARBAMOL 750 MG TABS 1 PO QID PRN METHOCARBAMOL 750 MG TABS 574835 METHOCARBAMOL Inactive VALIUM 5 MG TAB 1 po 30 minutes prior to your MRI VALIUM 5 MG TAB 352577 DIAZEPAM Inactive ANUSOL-HC 25 MG SUPPOSITORY 1 suppository rectally each evening as needed for anal fissure ANUSOL-HC 25 MG SUPPOSITORY 1904127 HYDROCORTISONE JAYDEN (RECTAL) Inactive ANUSOL-HC 25 MG SUPPOSITORY 1 rectally twice a day as needed for hemorrhoids ANUSOL-HC 25 MG SUPPOSITORY 1213483 HYDROCORTISONE JAYDEN (RECTAL) Inactive FLONASE 50 MCG/ACT SUSP 1 spray each nostril am and hs FLONASE 50 MCG/ACT SUSP FLUTICASONE PROPIONATE Inactive DICLOFENAC SODIUM 75 MG TBEC 1 tablet by q 12 hours PRN headaches DICLOFENAC SODIUM 75 MG TBEC 555609 DICLOFENAC SODIUM Inactive PA VITAMIN D-3 2000 UNIT CAPS 1 CAP PO DAILY PA VITAMIN D-3 2000 UNIT CAPS CHOLECALCIFEROL Inactive PREVACID 30 MG CPDR Take 1 tablet by mouth daily-PRN PREVACID 30 MG CPDR 757893 LANSOPRAZOLE Inactive DOXYCYCLINE HYCLATE 100 MG TAB 1 tab twice a day for 14 days 2013 DOXYCYCLINE HYCLATE 100 MG TAB 4837616 DOXYCYCLINE HYCLATE Inactive XOPENEX 1.25 MG/3ML NEBU 1 neb every 4 hours if needed for cough/congestion XOPENEX 1.25 MG/3ML NEBU 762594 LEVALBUTEROL HCL Inactive CYCLOBENZAPRINE HCL 10 MG TABS 1/2 - 1 tab by mouth three times daily if needed for spasms/pain CYCLOBENZAPRINE HCL 10 MG TABS 621019 CYCLOBENZAPRINE HCL Inactive ALBUTEROL SULFATE 0.083 % NEBU SOLN one vial per nebulizer every 4-6 hours as needed ALBUTEROL SULFATE 0.083 % NEBU SOLN 423467 ALBUTEROL SULFATE Inactive CEFTIN 500 MG TAB 1 twice a day CEFTIN 500 MG TAB 023616 CEFUROXIME AXETIL Inactive ZOFRAN ODT 4 MG TBDP 1 pill dissolved by mouth every 4 hours if needed for nausea ZOFRAN ODT 4 MG TBDP 610542 ONDANSETRON Inactive ADULT ASPIRIN EC LOW STRENGTH 81 MG TBEC Take 1 tablet by mouth daily 2014 ADULT ASPIRIN EC LOW STRENGTH 81 MG TBEC 560850 ASPIRIN Inactive CALCIUM 600+D PLUS MINERALS 600-400 [...] x 4 days AZITHROMYCIN 250 MG TABS 4686634 AZITHROMYCIN Inactive CEFDINIR 300 MG CAPS by mouth twice a day CEFDINIR 300 MG CAPS 652908 CEFDINIR Inactive AZITHROMYCIN 250 MG TABS 2 pills on day 1, then 1 pill daily x 4 days AZITHROMYCIN 250 MG TABS 8899106 AZITHROMYCIN Inactive DOXYCYCLINE HYCLATE 100 MG CAP 1 cap by mouth twice daily DOXYCYCLINE HYCLATE 100 MG CAP 9471894 DOXYCYCLINE HYCLATE Inactive FUROSEMIDE 20 MG TABS 1 pill by mouth daily, for edema FUROSEMIDE 20 MG TABS 902622 FUROSEMIDE Inactive Immunizations Vaccine Administration Date Value Standard Description Seasonal influenza vaccine, injectable, containing preservative, for > 3 years old (Afluria, FluLaval, Fluzone, Fluvirin, Fluarix, Agriflu(>=18 yo)) Fluzone (>3 yrs.) [AWG870] Influenza, seasonal, injectable influenza immunization (Flu Vax) has been administered Influenza - Unspecified Formulation [CVX88] influenza virus vaccine, unspecified formulation pneumococcal immunization administered Pneumovax 23 [CVX33] pneumococcal polysaccharide vaccine, 23 valent Seasonal influenza vaccine, injectable, containing preservative, for > 3 years old (Afluria, FluLaval, Fluzone, Fluvirin, Fluarix, Agriflu(>=18 yo)) Fluzone (>3 yrs.) [UFL115] Influenza, seasonal, injectable dT (Diphtheria and Tetanus) booster given given Td(adult) unspecified formulation Boostrix (Tetanus toxoid, reduced diphtheria toxoid and acellular pertussis vaccine, adsorbed), booster Boostrix [ETJ198] tetanus toxoid, reduced diphtheria toxoid, and acellular [...] mg/dL Chart Maintenance: Outside labs entered on [employer] - Hematology leukocyte count, blood 6.1 10*3/mm3 hemoglobin, blood 11.0 g/dL platelet count 175 10*3/mm3 Lab Report: Basic Metabolic Panel - Chemistry sodium, serum 145 mmol/L [phone]/06/22 potassium, serum 3.9 mmol/L 3.5-5.2 chloride, serum 109 mmol/L 98-107 carbon dioxide, venous blood 23.4 mmol/L 21.0-32.0 blood glucose 92 mg/dL 65-110 calcium, serum 8.2 mg/dL 8.5-10.1 urea nitrogen, blood 24 mg/dL 7-18 creatinine, serum 1.30 mg/dL 0.60-1.30 Lab Report: [facility] Advanced Lipid and Inlammation Panel /94649 - Chemistry cholesterol, serum 198 mg/dL 211-840 7043/04/30 HDL cholesterol, serum 65 mg/dL > OR=46 triglyceride, serum, fasting 82 mg/dL LDL cholesterol, serum 117 mg/dL cholesterol/HDL ratio, serum 3.0 calc < OR=5.0 Lab Report: CBC W/DIFF, Basic Metabolic Panel - Chemistry sodium, serum 144 mmol/L 252-160 9579/01/21 potassium, serum 4.2 mmol/L 3.5-5.2 chloride, serum [...] Panel - Chemistry sodium, serum 144 mmol/L 942-987 6240/12/15 potassium, serum 5.4 mmol/L 3.5-5.2 chloride, serum [...] UA - Chemistry sodium, serum 143 mmol/L 588-922 1814/10/24 potassium, serum 3.9 mmol/L 3.5-5.2 chloride, serum [...] 51 mg/dL 30-200 cholesterol, serum 173 mg/dL 337-085 2403/04/28 HDL cholesterol, serum 63 mg/dL 32-96 LDL [...] 0-19 Encounters Code Encounter Date Provider Facility CPT-20782 Level 3 Est. Patient 18:59:14 CDT Yolande Lindsay MD PhD [facility] CPT-85079 Level 4 Est. Patient 21:29:26 CDT Yolande Lindsay MD [facility]-63600 Level 3 Est. Patient 07:37:45 CDT Yolande Lindsay MD [facility]-43698 Level 3 Est. Patient 17:03:46 CDT Yolande Lindsay MD [facility]-86684 Level 4 Est. Patient 20:02:13 CHIEF JAILER Yolande Lindsay MD [facility] CPT-67557 Level 3 Est. Patient 16:02:07 CHIEF JAILER Alexis Ordaz MD [facility] CPT-56771 Level 3 Est. Patient 12:41:24 CHIEF JAILER Yolande Lindsay MD [facility] CPT-86481 Level 3 Est. Patient 15:41:20 CHIEF JAILER Yolande Lindsay MD [facility] CPT-73782 Level 3 Est. Patient 13:20:02 CHIEF JAILER Yolande Lindsay MD [facility] CPT-06779 Level 3 Est. Patient 15:00:38 CDT Jared Og MD [facility]-70101 Level 3 Est. Patient 10:22:32 CDT Yolande Lindsay MD [facility]-64900 Level 3 Est. Patient 17:12:58 CDT Yolande Lindsay MD [facility] CPT-72849 Level 4 Est. Patient 13:30:58 CDT Yolande Lindsay MD [facility] CPT-89615 Level 4 New Patient 09:02:42 CDT Jared Og MD [facility] CPT-78585 Level 3 Est. Patient 08:19:07 CDT Yolande Lindsay MD [facility]-98935 Level 3 Est. Patient 12:00:13 CHIEF JAILER Gab Padron MD [facility]-60926 Level 3 Est. Patient 16:15:23 CHIEF JAILER Yolande Lindsay MD [facility]-39133 Level 2 Est. Patient 19:47:15 CDT Yolande Lindsay MD [facility]-51980 Level 3 Est. Patient 21:38:31 CDT Yolande Lindsay MD [facility]-88796 Level 3 Est. Patient 10:25:12 CDT Adiel PERAZA [facility]-56543 Level 4 Est. Patient 10:51:58 CDT Yolande Lindsay MD [facility]-33743 Level 3 Est. Patient 14:04:55 CHIEF JAILER Rodrigo Sarah [facility] CPT-12122 Level 3 Est. Patient 10:46:35 CHIEF JAILER Rodrigo Sarah [facility] CPT-07369 Level 3 Est. Patient 14:24:37 CHIEF JAILER Yolande Lindsay MD [facility]-39558 Level 3 Est. Patient 17:41:58 CHIEF JAILER Yolande Lindsay MD [facility]-54228 Level 2 Est. Patient 22:01:41 CHIEF JAILER Rodrigo Sarah [facility]-22997 Level 2 Est. Patient 22:01:11 CHIEF JAILER Rodrigo Sarah [facility] CPT-19224 Level 3 Est. Patient 10:12:29 CHIEF JAILER Rodrigo Sarah [facility] CPT-22320 Level 3 Est. Patient 11:05:44 CDT Alexis Ordaz MD [facility] CPT-79558 Level 3 Est. Patient 14:57:20 CDT Yolande Lindsay MD [facility] CPT-81438 Level 3 Est. Patient 14:40:57 CDT Yolande Lindsay MD [facility] CPT-33299 Level 3 Est. Patient 20:55:40 CDT Yolande Lindsay MD [facility] CPT-88442 Level 3 Est. Patient 12:42:38 CHIEF JAILER Yolande Lindsay MD [facility] CPT-42371 Level 3 Est. Patient 11:54:49 CHIEF JAILER Des Hines MD [facility] CPT-97691 Level 3 Est. Patient 17:06:38 CDT Dewayne PERAZA [facility] Procedures Code Procedure Name Date Entry Date Standard Description [id number] Event Monitor - MC Transmission 09:12:32 CDT 08/06 [id number] Event Monitor - MC review and interp 09:12:32 CDT [id number] Event Monitor - MC recording 09:12:32 CDT CPT-12764 EKG Trac and Interp 16:50:22 CDT CPT-J1030 Depo Medrol 40 mg (Methyl Prednisolone Acetate) 17:05: 54 CDT CPT-J1100 Decadron 4mg (Dexamethasone) 17:05:54 CDT CPT-08306 Abx/Therapy Injection 17:05:54 CDT CPT-J1100 Decadron 4mg (Dexamethasone) 16:55:28 CDT CPT-J1030 Depo Medrol 40 mg (Methyl Prednisolone Acetate) 16:55: 28 CDT CPT-07423 Ankle Complete - Min 3V 15:58:50 CDT CPT-12171 Knee 3V 15:58:50 CDT CPT-01780 Hip comp min 2V 15:58:50 CDT CPT-J2270 Morphine Sulfate 10 mg 14:25:44 CHIEF JAILER CPT-J2550 Phenergan 12.5 mg (Promethazine) 14:25:44 CHIEF JAILER CPT-12316 Abx/Therapy Injection 14:25:44 CHIEF JAILER CPT-J2550 Phenergan 12.5 mg (Promethazine) 14:08:03 CHIEF JAILER CPT-J2270 Morphine Sulfate 10 mg 14:08:03 CHIEF JAILER CPT-89241 Bladder Scan 15:00:38 CDT CPT-TCMM Transitional Care Mgmt-Moderate 09:52:22 CDT CPT-J1030 Depo Medrol 40 mg (Methyl Prednisolone Acetate) 10:55: 18 CDT CPT-J1100 Decadron 4mg (Dexamethasone) 10:55:18 CDT CPT-12667 Abx/Therapy Injection 10:55:18 CDT CPT-J1030 Depo Medrol 40 mg (Methyl Prednisolone Acetate) 10:22: 32 CDT CPT-J1100 Decadron 4mg (Dexamethasone) 10:22:32 CDT CPT-92013 Postop F/U Visit 14:37:13 CDT CPT-07325 Ankle Complete - Min 3V 17:11:58 CDT CPT-57400 Foot comp min 3V 17:11:58 CDT CPT-79367 Bladder Scan 09:56:58 CDT CPT-21190 Postop F/U Visit 09:56:58 CDT CPT-53174 Cystoscopy 09:02:42 CDT CPT-76786 Bladder Scan 09:02:42 CDT CPT-99761 Abd single AP View 16:00:35 CDT CPT-34083 Administration single or combination vaccine inc oral 10 :15:43 CDT CPT-84703 Influenza split virus > age 3 10:15:43 CDT CPT-60884 Nail Avulsion 09:24:57 CDT CPT-OV Office Visit 11:15:41 CDT CPT-43123 Abx/Therapy Injection 10:51:30 CDT CPT-J3301 Kenalog 40 mg (Triamcinolone Acetonide) 10:25:12 CDT CPT-J1100 Decadron 4mg (Dexamethasone) 10:25:12 CDT CPT-71537 Anoscopy diagnostic 10:36:12 CDT CPT-OV Office Visit 15:34:31 CDT CPT-18796 Abx/Therapy Injection 08:21:15 CHIEF JAILER CPT-J1885 Toradol 60 mg (Ketorolac) 10:46:35 CHIEF JAILER CPT-OV Office Visit 19:51:16 CHIEF JAILER CPT-97304 Spec Collection and Handling Fee 14:34:18 CHIEF JAILER CPT-PV Prev. Care Visit 14:19:18 CHIEF JAILER CPT-55770 Postop F/U Visit 14:47:51 CHIEF JAILER CPT-53937 Postop F/U Visit 15:15:14 CHIEF JAILER CPT-57949 Postop F/U Visit 14:41:43 CDT CPT-42757 Postop F/U Visit 15:47:46 CDT CPT-OV Office Visit 15:27:23 CDT CPT-OV Office Visit 17:20:34 CDT CPT-61990 Abx/Therapy Injection 15:05:57 CDT CPT-J1100 Decadron 8mg (Dexamethasone) 14:44:57 CDT CPT-J1040 Depo Medrol 80 mg (Methyl Prednisolone Acetate) 14:44: 57 CDT CPT-JTINJ Joint Injection 10:17:37 CDT CPT-99292 Administration 2+ single or combination vaccines inc oral 13:01:46 CHIEF JAILER CPT-29424 Administration single or combination vaccine inc oral 13 :01:46 CHIEF JAILER CPT-57157 Pneumovax 13:01:46 CHIEF JAILER CPT-38764 Influenza split virus > age 3 13:01:46 CHIEF JAILER CPT-28714 Administration single or combination vaccine inc oral 08 :56:49 CDT CPT-78161 Tdap 08:56:49 CDT
--- OUTSIDE RECORDS SUMMARY | 2017-03-22 00:18 | XMS REPORT | Clinical Summary ---
Author Author Admin, MARGRET Organization [employer] Address Unknown Phone Unavailable Allergies, Adverse Reactions, Alerts Allergy Name Reaction Description Start Date Severity Status Provider VALENTIN Critical Active Rodrigo Montemayorl HOUSE CALLS NURSE PRACTITIONER CHLORHEXIDINE GLUCONATE tongue and gums swollen Critical Active Hoa Kabaford RMA NORFLEX Rash Critical Active Rowenaina Frazell HOUSE CALLS NURSE PRACTITIONER TRAZODONE HCL sees things Critical Active [...] other complication POISON KUNAL DERMATITIS 692.6 Resolved Yolnade Lindsay MD PhD Contact dermatitis and other [...] hx of 412 Active Hoa Otto [facility] Old myocardial infarction Pelvic pain 789.09 Active Yolande Lindsay MD PhD Abdominal pain, other specified site; multiple sites Edema 782.3 Active Yolande Lindsay MD PhD Edema Rash 782.1 Active Yolande Lindsay MD PhD Rash and other nonspecific skin eruption Back pain, lumbar 724.2 Active Gab Padron MD Lumbago Cough 786.2 Active Jillina Tyrel HOUSE CALLS NURSE PRACTITIONER Cough 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 Jillina Frazellilian ZAPATAN 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 Anemia 285.9 Active Gab Padron MD Anemia, unspecified Conjunctivitis 372.30 Active Jillnacho Sarah APRN Conjunctivitis, unspecified Sinusitis 473.9 Active Jillina Frazell HOUSE CALLS NURSE PRACTITIONER Unspecified sinusitis (chronic) Nonspecific syndrome suggestive of viral illness 079.99 Active Jillina Siml HOUSE CALLS NURSE PRACTITIONER Unspecified viral infection Laryngitis 464.00 Active Jillina Farshadzell HOUSE CALLS NURSE PRACTITIONER Acute laryngitis without mention of obstruction Abdominal [...] Abdominal pain, generalized 789.07 Active Silvestrellina Siml HOUSE CALLS NURSE PRACTITIONER Abdominal pain, generalized Back pain, thoracic region, left 724.1 Active Jillina Farshadzell HOUSE CALLS NURSE PRACTITIONER Pain in thoracic spine Abdominal pain, left [...] alone Hip pain, left 719.45 Active Gab Pdaron MD Pain in joint involving pelvic region [...] every 6 hrs prn pain TRAMADOL HCL 18825889989 Active Gab Padron MD Active PREDNISONE 20 MG TAB 2 tabs daily for 3 days, 1 tab daily for 3 days, 1/2 tab daily for 2 days PREDNISONE 15468106831 No Longer Active Gab Padron MD Active ZOFRAN ODT 4 MG TBDP 1 po q6hr PRN Nausea ONDANSETRON 71634573484 Active Gab Padron MD Active IBUPROFEN 600 MG TAB 1 tablet by mouth every 6 hours for 7 days, then 1 tablet every 6 hours as needed. Take with food IBUPROFEN 92982424992 Active Jillina Frazell HOUSE CALLS NURSE PRACTITIONER Active BACTRIM DS 800-160 MG TAB 1 tab by mouth twice daily TRIMETHOPRIM-SULFAMETHOXAZOLE 27674513438 No Longer Active Gab Padron MD Active ADVAIR DISKUS 250-50 MCG/DOSE AEPB 1 puff BID FLUTICASONE- SALMETEROL 71295297857 Active Jillnacho Sarah HOUSE CALLS NURSE PRACTITIONER Active LEVOTHYROXINE SODIUM 75 MCG TABS Take 1 tab daily LEVOTHYROXINE SODIUM 41066945195 No Longer Active Mariana Cuadra [facility] Active SYNTHROID 88 MCG ORAL TABS Take one by mouth daily LEVOTHYROXINE SODIUM 63249137960 Active Gab Padron MD Active CHERATUSSIN AC 100-10 MG/5ML SYRP 1 tsp by mouth every 4 hours as needed for cough GUAIFENESIN-CODEINE 56759038690 No Longer Active Gab Padron MD Active POLYTRIM 60388-6.1 UNIT/ML-% SOLN 1 gtt to affected eye q3h x 7 days POLYMYXIN B-TRIMETHOPRIM 60623152395 No Longer Active Gab Padron MD Active FLUTICASONE PROPIONATE 50 MCG/ACT SUSP 1 to 2 sprays each nostril daily 04/21 FLUTICASONE PROPIONATE 84881631324 No Longer Active Gab Padron MD Active TRILEPTAL 600 MG TABS Take one 1 tablet in Am and 1 tablet at night OXCARBAZEPINE 38043394572 Active Gab Padron MD Active CEFDINIR 300 MG CAPS 1 po BID x 10 days CEFDINIR 78890346805 No Longer Active Rodrigo Sarah APRN Active CEFTIN 500 MG TAB 1 twice a day CEFUROXIME AXETIL 33937065590 No Longer Active Gab Padron MD Active AZITHROMYCIN 250 MG TABS 2 po qd x 1 day, then 1 po qd x 4 days AZITHROMYCIN 44803717784 No Longer Active Rodrigo Sarah APRN Active CLARITIN 10 MG TAB 1 tablet by mouth daily as needed for allergies LORATADINE 92067589817 Active Rodrigo Sarah APRN Active OXYCODONE HCL 5 MG ORAL CAPS 1 TAB PO Q HS OXYCODONE HCL 06892090019 No Longer Active Rodrigo Sarah APRN Active NIASPAN 500 MG ORAL CR-TABS 1 pill nightly x 1 week, then 2 pills nightly x 1 week, then 3 pills nightly x 1 week, then 4 pills nightly NIACIN (ANTIHYPERLIPIDEMIC) 55050733235 No Longer Active Rodrigo Sarah APRN Active NIACIN 500 MG TABS 1 pill by mouth nightly x 1 week, then 2 pills x 1 week, then 3 pills x 1 week, then 4 pills nightly - take after evening meal, with applesauce or an apple NIACIN 08568465287 No Longer Active Yolande Lindsay MD PhD Active FISH OIL 1000 MG CAPS 3 pills daily OMEGA-3 FATTY ACIDS 62463244484 Active Yolande Lindsay MD PhD Active TRIAMCINOLONE ACETONIDE 0.1 % CREA apply bid sparingly to rash TRIAMCINOLONE ACETONIDE 39647754342 Active Yolande Lindsay MD PhD Active FUROSEMIDE 20 MG TAB 1 tablet by mouth daily FUROSEMIDE 38458760190 Active Tisha Lambert APRN Active LISINOPRIL 20 MG ORAL TABS 1 tab by mouth daily LISINOPRIL 86752050554 Active Tisha Lambert APRN Active FUROSEMIDE 20 MG TABS 1 pill by mouth daily, for edema FUROSEMIDE 33074423290 No Longer Active Yolande Lindsay MD PhD Active ATORVASTATIN CALCIUM 10 MG TABS 1 pill by mouth daily, for cholesterol 09/06 ATORVASTATIN CALCIUM 16972805501 Active Gab Padron MD Active CALCIUM 600+D PLUS MINERALS 600-400 MG-UNIT ORAL CHEW 1 tab by mouth daily CALCIUM CARBONATE-VIT D-MIN 73894139773 No Longer Active Yolande Lindsay MD PhD Active CYCLOBENZAPRINE HCL 10 MG TABS 1 tablet by mouth three times daily as needed for muscle spasm/pain CYCLOBENZAPRINE HCL 27858503022 Active Yolande Lindsay MD PhD Active ONDANSETRON 4 MG TBDP 1 q4h PRN nausea ONDANSETRON 12976959957 Active Yolande Lindsay MD PhD Active ADULT ASPIRIN EC LOW STRENGTH 81 MG TBEC Take 1 tablet by mouth daily 2014 ASPIRIN 58863402146 No Longer Active Yolande Lindsay MD PhD Active ZOFRAN ODT 4 MG TBDP 1 pill dissolved by mouth every 4 hours if needed for nausea ONDANSETRON 38917175891 No Longer Active Yolande Lindsay MD PhD Active CEFTIN 500 MG TAB 1 twice a day CEFUROXIME AXETIL 43124105644 No Longer Active Yolande Lindsay MD PhD Active ALBUTEROL SULFATE 0.083 % NEBU SOLN one vial per nebulizer every 4-6 hours as needed ALBUTEROL SULFATE 16640425541 No Longer Active Alexis Ordaz MD Active DOXYCYCLINE HYCLATE 100 MG CAP 1 cap by mouth twice daily DOXYCYCLINE HYCLATE 95893613990 No Longer Active Yolande Lindsay MD PhD Active CYCLOBENZAPRINE HCL 10 MG TABS 1/2 - 1 tab by mouth three times daily if needed for spasms/pain CYCLOBENZAPRINE HCL 79169071662 No Longer Active Yolande Lindsay MD PhD Active AZITHROMYCIN 250 MG TABS 2 pills on day 1, then 1 pill daily x 4 days AZITHROMYCIN 77465772354 No Longer Active Yolande Lindsay MD PhD Active XOPENEX 1.25 MG/3ML NEBU 1 neb every 4 hours if needed for cough/congestion LEVALBUTEROL HCL 13052034822 No Longer Active Yolande Lindsay MD PhD Active DOXYCYCLINE HYCLATE 100 MG TAB 1 tab twice a day for 14 days 2013 DOXYCYCLINE HYCLATE 79840014529 No Longer Active Yolande Lindsay MD PhD Active PREVACID 30 MG CPDR Take 1 tablet by mouth daily-PRN LANSOPRAZOLE 29406409655 No Longer Active Yolande Lindsay MD PhD Active PA VITAMIN D-3 2000 UNIT CAPS 1 CAP PO DAILY CHOLECALCIFEROL 80923693426 No Longer Active Yolande Lindsay MD PhD Active CEFDINIR 300 MG CAPS by mouth twice a day CEFDINIR 90790902612 No Longer Active Gab Padron MD Active TOPAMAX 50 MG TABS 1 PO twice daily TOPIRAMATE 11944462023 Active Yolande Lindsay MD PhD Active AZITHROMYCIN 250 MG TABS 2 po qd x 1 day, then 1 po qd x 4 days AZITHROMYCIN 92597187622 No Longer Active Yolande Lindsay MD PhD Active DICLOFENAC SODIUM 75 MG TBEC 1 tablet by q 12 hours PRN headaches DICLOFENAC SODIUM 77354513176 No Longer Active Yolande Lindsay MD PhD Active FLONASE 50 MCG/ACT SUSP 1 spray each nostril am and hs FLUTICASONE PROPIONATE 00880143943 No Longer Active Todd Callaway MD Active ANUSOL-HC 25 MG SUPPOSITORY 1 rectally twice a day as needed for hemorrhoids HYDROCORTISONE JAYDEN (RECTAL) 17489047530 No Longer Active Yolande Lindsay MD PhD Active ANUSOL-HC 25 MG SUPPOSITORY 1 suppository rectally each evening as needed for anal fissure HYDROCORTISONE JAYDEN (RECTAL) 47325284659 No Longer Active Bozena Coleman, RMA Active VALIUM 5 MG TAB 1 po 30 minutes prior to your MRI DIAZEPAM 49140849516 No Longer Active Bozena JaredEDELMIRAFeliciano Active METHOCARBAMOL 750 MG TABS 1 PO QID PRN METHOCARBAMOL 91305076292 No Longer Active Daphne Wetzel HOUSE CALLS NURSE PRACTITIONER Active NITROSTAT 0.4 MG SUBL as directed NITROGLYCERIN 41520802174 No Longer Active Rodrigo Sarah HOUSE CALLS NURSE PRACTITIONER Active ROBAXIN-750 750 MG TABS 2 four times a day for 3 days as needed for muscle spasm, then 1 four times a day as needed METHOCARBAMOL 28880342912 No Longer Active Rodrigo Sarah APRN Active HYDROCODONE-ACETAMINOPHEN 5-325 MG TABS 1 q 4-6 hrs prn HYDROCODONE-ACETAMINOPHEN 36712048660 No Longer Active Rodrigo Sarah APRN Active VERAPAMIL HCL CR 180 MG CR-TABS TAKE 1 TAB DAILY VERAPAMIL HCL 09805873664 No Longer Active Yolande Lindsay MD PhD Active BACTRIM DS 800-160 MG TAB 1 tab by mouth twice daily TRIMETHOPRIM-SULFAMETHOXAZOLE 96024535497 No Longer Active Yolande Lindsay MD PhD Active NEXIUM 40 MG PACK 1 by mouth daily ESOMEPRAZOLE MAGNESIUM 84459325790 No Longer Active Des Hines MD Active EPIPEN 2-CHARLETTE 0.3 MG/0.3ML OMARI as need for allergic reaction EPINEPHRINE 46248434387 Active Yolande Lindsay MD PhD Active NEXIUM 40 MG CPDR 1 PO Q D DAY ESOMEPRAZOLE MAGNESIUM 51026424668 No Longer Active Sadia Perry RN Active NEXIUM 40 MG PACK 1 by mouth daily NEXIUM 40 MG PACK ESOMEPRAZOLE MAGNESIUM Inactive VERAPAMIL HCL CR 180 MG CR-TABS TAKE 1 TAB DAILY VERAPAMIL HCL CR 180 MG CR-TABS VERAPAMIL HCL Inactive HYDROCODONE-ACETAMINOPHEN 5-325 MG TABS 1 q 4-6 hrs prn HYDROCODONE-ACETAMINOPHEN 5-325 MG TABS 494782 HYDROCODONE-ACETAMINOPHEN Inactive ROBAXIN-750 750 MG TABS 2 four times a day for 3 days as needed for muscle spasm, then 1 four times a day as needed ROBAXIN-750 750 MG TABS 531860 METHOCARBAMOL Inactive NITROSTAT 0.4 MG SUBL as directed NITROSTAT 0.4 MG SUBL 147216 NITROGLYCERIN Inactive METHOCARBAMOL 750 MG TABS 1 PO QID PRN METHOCARBAMOL 750 MG TABS 518194 METHOCARBAMOL Inactive VALIUM 5 MG TAB 1 po 30 minutes prior to your MRI VALIUM 5 MG TAB 028387 DIAZEPAM Inactive ANUSOL-HC 25 MG SUPPOSITORY 1 suppository rectally each evening as needed for anal fissure ANUSOL-HC 25 MG SUPPOSITORY 8961115 HYDROCORTISONE JAYDEN (RECTAL) Inactive ANUSOL-HC 25 MG SUPPOSITORY 1 rectally twice a day as needed for hemorrhoids ANUSOL-HC 25 MG SUPPOSITORY 2457388 HYDROCORTISONE JAYDEN (RECTAL) Inactive FLONASE 50 MCG/ACT SUSP 1 spray each nostril am and hs FLONASE 50 MCG/ACT SUSP FLUTICASONE PROPIONATE Inactive DICLOFENAC SODIUM 75 MG TBEC 1 tablet by q 12 hours PRN headaches DICLOFENAC SODIUM 75 MG TBEC 410962 DICLOFENAC SODIUM Inactive PA VITAMIN D-3 2000 UNIT CAPS 1 CAP PO DAILY PA VITAMIN D-3 2000 UNIT CAPS CHOLECALCIFEROL Inactive PREVACID 30 MG CPDR Take 1 tablet by mouth daily-PRN PREVACID 30 MG CPDR 497105 LANSOPRAZOLE Inactive DOXYCYCLINE HYCLATE 100 MG TAB 1 tab twice a day for 14 days 2013 DOXYCYCLINE HYCLATE 100 MG TAB 0266325 DOXYCYCLINE HYCLATE Inactive XOPENEX 1.25 MG/3ML NEBU 1 neb every 4 hours if needed for cough/congestion XOPENEX 1.25 MG/3ML NEBU 990040 LEVALBUTEROL HCL Inactive CYCLOBENZAPRINE HCL 10 MG TABS 1/2 - 1 tab by mouth three times daily if needed for spasms/pain CYCLOBENZAPRINE HCL 10 MG TABS 431699 CYCLOBENZAPRINE HCL Inactive ALBUTEROL SULFATE 0.083 % NEBU SOLN one vial per nebulizer every 4-6 hours as needed ALBUTEROL SULFATE 0.083 % NEBU SOLN 775435 ALBUTEROL SULFATE Inactive CEFTIN 500 MG TAB 1 twice a day CEFTIN 500 MG TAB 351115 CEFUROXIME AXETIL Inactive ZOFRAN ODT 4 MG TBDP 1 pill dissolved by mouth every 4 hours if needed for nausea ZOFRAN ODT 4 MG TBDP 246887 ONDANSETRON Inactive ADULT ASPIRIN EC LOW STRENGTH 81 MG TBEC Take 1 tablet by mouth daily 2014 ADULT ASPIRIN EC LOW STRENGTH 81 MG TBEC 003358 ASPIRIN Inactive CALCIUM 600+D PLUS MINERALS 600-400 [...] or an apple NIACIN 500 MG TABS 007942 NIACIN Inactive NIASPAN 500 MG ORAL CR-TABS 1 pill nightly x 1 week, then 2 pills nightly x 1 week, then 3 pills nightly x 1 week, then 4 pills nightly NIASPAN 500 MG ORAL CR-TABS NIACIN (ANTIHYPERLIPIDEMIC) Inactive OXYCODONE HCL 5 MG ORAL CAPS 1 TAB PO Q HS OXYCODONE HCL 5 MG ORAL CAPS 1462961 OXYCODONE HCL Inactive FLUTICASONE PROPIONATE 50 MCG/ACT SUSP 1 to 2 sprays each nostril daily 04/21 FLUTICASONE PROPIONATE 50 MCG/ACT SUSP 3092905 FLUTICASONE PROPIONATE Inactive POLYTRIM 78013-0.1 UNIT/ML-% SOLN 1 gtt to affected eye q3h x 7 days POLYTRIM 87868-7.1 UNIT/ML-% SOLN 381846 POLYMYXIN B- TRIMETHOPRIM Inactive CHERATUSSIN AC 100-10 MG/5ML SYRP 1 tsp by mouth every 4 hours as needed for cough CHERATUSSIN AC 100-10 MG/5ML SYRP 910954 GUAIFENESIN-CODEINE Inactive LEVOTHYROXINE SODIUM 75 MCG TABS Take 1 tab daily LEVOTHYROXINE SODIUM 75 MCG TABS 217979 LEVOTHYROXINE SODIUM Inactive BACTRIM DS 800-160 MG TAB 1 tab by mouth twice daily BACTRIM DS 800-160 MG TAB 084020 TRIMETHOPRIM-SULFAMETHOXAZOLE Inactive AZITHROMYCIN 250 MG TABS 2 po qd x 1 day, then 1 po qd x 4 days AZITHROMYCIN 250 MG TABS 4653950 AZITHROMYCIN Inactive CEFDINIR 300 MG CAPS by mouth twice a day CEFDINIR 300 MG CAPS 036554 CEFDINIR Inactive AZITHROMYCIN 250 MG TABS 2 pills on day 1, then 1 pill daily x 4 days AZITHROMYCIN 250 MG TABS 2122296 AZITHROMYCIN Inactive DOXYCYCLINE HYCLATE 100 MG CAP 1 cap by mouth twice daily DOXYCYCLINE HYCLATE 100 MG CAP 8658217 DOXYCYCLINE HYCLATE Inactive FUROSEMIDE 20 MG TABS 1 pill by mouth daily, for edema FUROSEMIDE 20 MG TABS 622429 FUROSEMIDE Inactive AZITHROMYCIN 250 MG TABS 2 po qd x 1 day, then 1 po qd x 4 days AZITHROMYCIN 250 MG TABS 3908100 AZITHROMYCIN Inactive CEFTIN 500 MG TAB 1 twice a day CEFTIN 500 MG TAB 517093 CEFUROXIME AXETIL Inactive CEFDINIR 300 MG CAPS 1 po BID x 10 days CEFDINIR 300 MG CAPS 459396 CEFDINIR Inactive BACTRIM DS 800-160 MG TAB 1 tab by mouth twice daily BACTRIM DS 800-160 MG TAB 829846 TRIMETHOPRIM-SULFAMETHOXAZOLE Inactive PREDNISONE 20 MG TAB 2 tabs daily for 3 days, 1 tab daily for 3 days, 1/2 tab daily for 2 days PREDNISONE 20 MG TAB 661805 PREDNISONE Inactive Immunizations Vaccine Administration Date Value Standard Description Seasonal influenza vaccine, injectable, containing preservative, for > 3 years old (Afluria, FluLaval, Fluzone, Fluvirin, Fluarix, Agriflu(>=18 yo)) Fluzone (>3 yrs.) [RRR698] Influenza, seasonal, injectable influenza immunization (Flu Vax) has been administered Influenza - Unspecified Formulation [CVX88] influenza virus vaccine, unspecified formulation Seasonal influenza vaccine, injectable, containing preservative, for > 3 years old (Afluria, FluLaval, Fluzone, Fluvirin, Fluarix, Agriflu(>=18 yo)) Fluzone (>3 yrs.) [HMP561] Influenza, seasonal, injectable pneumococcal immunization administered Pneumovax 23 [CVX33] pneumococcal polysaccharide vaccine, 23 valent dT (Diphtheria and Tetanus) booster given given Td(adult) unspecified formulation Boostrix (Tetanus toxoid, reduced diphtheria toxoid and acellular pertussis vaccine, adsorbed), booster Boostrix [MBT307] tetanus toxoid, reduced diphtheria toxoid, and acellular [...] Panel - Chemistry sodium, serum 142 mmol/L 712-800 4937/06/30 potassium, serum 4.4 mmol/L 3.5-5.2 chloride, serum [...] Rate - Chemistry sodium, serum 139 mmol/L 746-095 3472/03/24 carbon dioxide, venous blood 22.4 mmol/L 21.0-32.0 [...] ... - Chemistry sodium, serum 143 mmol/L 243-250 9868/05/02 carbon dioxide, venous blood 25.6 mmol/L 21.0-32.0 [...] PANEL - Chemistry cholesterol, serum 166 mg/dL 422-772 2843/12/06 triglyceride, serum, fasting 86 mg/dL 30-200 HDL [...] Negative mg/dL Negative sodium, serum 142 mmol/L 737-524 8235/07/18 carbon dioxide, venous blood 27.8 mmol/L 21.0-32.0 [...] negative Encounters Code Encounter Date Provider Facility CPT-35120 Level 3 Est. Patient 17:43:55 PLANT ATTENDANT Gab Padron MD [facility] CPT-57408 Level 3 Est. Patient 17:07:49 PLANT ATTENDANT Jared Og MD [facility] CPT-63316 Level 4 Est. Patient 19:55:18 PLANT ATTENDANT Jared Og MD [facility] CPT-55527 Level 3 Est. Patient 20:13:34 PLANT ATTENDANT Jared Og MD [facility] CPT-46943 Level 4 Est. Patient 16:31:27 CDT Gab Padron MD [facility] CPT-53913 Level 2 Est. Patient 12:23:38 CDT Jared Og MD [facility] CPT-44744 Level 3 Est. Patient 11:01:51 CDT Gab Padron MD [facility] CPT-51949 Level 3 Est. Patient 15:27:02 CDT Jared Og MD [facility] CPT-90674 Level 4 Est. Patient 09:25:27 CDT Gab Padron MD [facility] CPT-10626 Level 3 Est. Patient 10:29:41 CDT Rodrigo Sarah [facility] CPT-57049 Level 4 Est. Patient 17:51:05 CDT Gab Padron MD [facility] CPT-26369 Level 3 Est. Patient 14:18:08 CDT Gab Padron MD [facility] CPT-98163 Level 4 Est. Patient 10:18:54 CDT Gab Padron MD [facility] CPT-04358 Level 3 Est. Patient 11:30:07 CDT Rodrigo Sarah [facility] CPT-93775 Level 4 Est. Patient 21:02:30 PLANT ATTENDANT Gab Padron MD [facility] CPT-81346 Level 3 Est. Patient 11:02:19 PLANT ATTENDANT Gab Padron MD [facility] CPT-14986 Level 4 Est. Patient 22:24:31 PLANT ATTENDANT Gab Padron MD [facility] CPT-17626 Level 3 Est. Patient 18:33:46 PLANT ATTENDANT Gab Padron MD [facility] CPT-72428 Level 3 Est. Patient 16:19:11 CDT Yolande Lindsay MD [facility]-68453 Level 3 Est. Patient 18:59:14 CDT Yolande Lindsay MD [facility] [place]-17348 Level 4 Est. Patient 21:29:26 CDT Yolande Lindsay MD [facility]-18127 Level 3 Est. Patient 07:37:45 CDT Yolande Lindsay MD [facility]-16804 Level 3 Est. Patient 17:03:46 CDT Yolande Lindsay MD [facility]-83878 Level 4 Est. Patient 20:02:13 PLANT ATTENDANT Yolande Lindsay MD [facility]-11669 Level 3 Est. Patient 16:02:07 PLANT ATTENDANT Alexis Ordaz MD [facility]-30571 Level 3 Est. Patient 12:41:24 PLANT ATTENDANT Yolande Lindsay MD [facility]-14457 Level 3 Est. Patient 15:41:20 PLANT ATTENDANT Yolande Lindsay MD [facility]-52457 Level 3 Est. Patient 13:20:02 PLANT ATTENDANT Yolande Lindsay MD [facility]-07667 Level 3 Est. Patient 15:00:38 CDT Jared Og MD [facility]-02980 Level 3 Est. Patient 10:22:32 CDT Yolande Lindsay MD [facility]-84378 Level 3 Est. Patient 17:12:58 CDT Yolande Lindsay MD [facility]-63857 Level 4 Est. Patient 13:30:58 CDT Yolande Lindsay MD [facility]-27992 Level 4 New Patient 09:02:42 CDT Jared Og MD [facility]-32905 Level 3 Est. Patient 08:19:07 CDT Yolande Lindsay MD [facility]-25353 Level 3 Est. Patient 12:00:13 PLANT ATTENDANT Gab Padron MD [facility]-50980 Level 3 Est. Patient 16:15:23 PLANT ATTENDANT Yolande Lindsay MD [facility]20318 Level 2 Est. Patient 19:47:15 CDT Yolande Lindsay MD [facility] [place]-52792 Level 3 Est. Patient 21:38:31 CDT Yolande Lindsay MD [facility]52716 Level 3 Est. Patient 10:25:12 CDT Adiel PERAZA [facility]-67334 Level 4 Est. Patient 10:51:58 CDT Yolande Lindsay MD [facility] [place]-15268 Level 3 Est. Patient 14:04:55 PLANT ATTENDANT Rodrigo Sarah [facility]-21683 Level 3 Est. Patient 10:46:35 PLANT ATTENDANT Rodrigo Sarah [facility]-65089 Level 3 Est. Patient 14:24:37 PLANT ATTENDANT Yolande Lindsay MD [facility]-05478 Level 3 Est. Patient 17:41:58 PLANT ATTENDANT Yolande Lindsay MD [facility]-64971 Level 2 Est. Patient 22:01:41 PLANT ATTENDANT Rodrigo Sarah [facility]-10844 Level 2 Est. Patient 22:01:11 PLANT ATTENDANT Rodrigo Sarah [facility]-50891 Level 3 Est. Patient 10:12:29 PLANT ATTENDANT Rodrigo Sarah [facility]-68212 Level 3 Est. Patient 11:05:44 CDT Alexis Ordaz MD [facility] CPT-99220 Level 3 Est. Patient 14:57:20 CDT Yolande Lindsay MD [facility] CPT-29456 Level 3 Est. Patient 14:40:57 CDT Yolande Lindsay MD [facility] CPT-89020 Level 3 Est. Patient 20:55:40 CDT Yolande Lindsay MD PhD [facility] CPT-67752 Level 3 Est. Patient 12:42:38 PLANT ATTENDANT Yolande Lindsay MD [facility] CPT-43242 Level 3 Est. Patient 11:54:49 PLANT ATTENDANT Des Hines MD [facility] CPT-63500 Level 3 Est. Patient 17:06:38 CDT Dewayne PERAZA [facility] Procedures Code Procedure Name Date Entry Date Standard Description CPT-99720 Hip, complete, 2-3 views - XRAY USE ONLY 17:19:04 PLANT ATTENDANT CPT-50513 Venipuncture Draw Fee 08:37:59 PLANT ATTENDANT CPT-00132 Liver Profile - LAB USE ONLY 08:37:59 PLANT ATTENDANT CPT-92681 Lipid - LAB USE ONLY 08:37:58 PLANT ATTENDANT CPT-04900 First Vx - Ix admin via ID IM or jet injects without counseling by physician 11:52:31 CDT CPT-82614 Fluzone Preservative Free Intramuscular Suspension 11:52 :31 CDT CPT-79721 Foot, left, comp min 3V - XRAY USE ONLY 09:24:54 CDT CPT-96147 Abd single AP View - XRAY USE ONLY 11:16:17 CDT CPT-19954 T spine AP/ Lat - XRAY USE ONLY 09:34:21 CDT CPT-73751 Chest 2V Frontal and Lat - XRAY USE ONLY 10:48:51 CDT CPT-99322 LS spine comp w obliq 13:28:00 PLANT ATTENDANT CPT-J1040 Depo Medrol 80 mg (Methyl Prednisolone Acetate) 10:51: 28 PLANT ATTENDANT CPT-J1100 Decadron 8mg (Dexamethasone) 10:51:28 PLANT ATTENDANT CPT-35130 Abx/Therapy Injection 10:51:28 PLANT ATTENDANT CPT-J1100 Decadron 8mg (Dexamethasone) 21:02:30 PLANT ATTENDANT CPT-J1040 Depo Medrol 80 mg (Methyl Prednisolone Acetate) 21:02: 30 PLANT ATTENDANT [id number] Event Monitor - MC Transmission 09:12:32 CDT 08/06 [id number] Event Monitor - MC review and interp 09:12:32 CDT [id number] Event Monitor - MC recording 09:12:32 CDT CPT-80915 EKG Trac and Interp 16:50:22 CDT CPT-J1030 Depo Medrol 40 mg (Methyl Prednisolone Acetate) 17:05: 54 CDT CPT-J1100 Decadron 4mg (Dexamethasone) 17:05:54 CDT CPT-99584 Abx/Therapy Injection 17:05:54 CDT CPT-J1100 Decadron 4mg (Dexamethasone) 16:55:28 CDT CPT-J1030 Depo Medrol 40 mg (Methyl Prednisolone Acetate) 16:55: 28 CDT CPT-43808 Ankle Complete - Min 3V 15:58:50 CDT CPT-36883 Knee 3V 15:58:50 CDT CPT-93641 Hip comp min 2V 15:58:50 CDT CPT-J2270 Morphine Sulfate 10 mg 14:25:44 PLANT ATTENDANT CPT-J2550 Phenergan 12.5 mg (Promethazine) 14:25:44 PLANT ATTENDANT CPT-79561 Abx/Therapy Injection 14:25:44 PLANT ATTENDANT CPT-J2550 Phenergan 12.5 mg (Promethazine) 14:08:03 PLANT ATTENDANT CPT-J2270 Morphine Sulfate 10 mg 14:08:03 PLANT ATTENDANT CPT-99498 Bladder Scan 15:00:38 CDT CPT-TCMM Transitional Care Mgmt-Moderate 09:52:22 CDT CPT-J1030 Depo Medrol 40 mg (Methyl Prednisolone Acetate) 10:55: 18 CDT CPT-J1100 Decadron 4mg (Dexamethasone) 10:55:18 CDT CPT-71985 Abx/Therapy Injection 10:55:18 CDT CPT-J1030 Depo Medrol 40 mg (Methyl Prednisolone Acetate) 10:22: 32 CDT CPT-J1100 Decadron 4mg (Dexamethasone) 10:22:32 CDT CPT-67287 Postop F/U Visit 14:37:13 CDT CPT-33552 Ankle Complete - Min 3V 17:11:58 CDT CPT-53160 Foot comp min 3V 17:11:58 CDT CPT-92939 Bladder Scan 09:56:58 CDT CPT-42873 Postop F/U Visit 09:56:58 CDT CPT-96742 Cystoscopy 09:02:42 CDT CPT-95905 Bladder Scan 09:02:42 CDT CPT-52204 Abd single AP View 16:00:35 CDT CPT-54217 Administration single or combination vaccine inc oral 10 :15:43 CDT CPT-77714 Influenza split virus > age 3 10:15:43 CDT CPT-90624 Nail Avulsion 09:24:57 CDT CPT-OV Office Visit 11:15:41 CDT CPT-08071 Abx/Therapy Injection 10:51:30 CDT CPT-J3301 Kenalog 40 mg (Triamcinolone Acetonide) 10:25:12 CDT CPT-J1100 Decadron 4mg (Dexamethasone) 10:25:12 CDT CPT-85485 Anoscopy diagnostic 10:36:12 CDT CPT-OV Office Visit 15:34:31 CDT CPT-97277 Abx/Therapy Injection 08:21:15 PLANT ATTENDANT CPT-J1885 Toradol 60 mg (Ketorolac) 10:46:35 PLANT ATTENDANT CPT-OV Office Visit 19:51:16 PLANT ATTENDANT CPT-16314 Spec Collection and Handling Fee 14:34:18 PLANT ATTENDANT CPT-PV Prev. Care Visit 14:19:18 PLANT ATTENDANT CPT-18777 Postop F/U Visit 14:47:51 PLANT ATTENDANT CPT-39927 Postop F/U Visit 15:15:14 PLANT ATTENDANT CPT-18477 Postop F/U Visit 14:41:43 CDT CPT-15700 Postop F/U Visit 15:47:46 CDT CPT-OV Office Visit 15:27:23 CDT CPT-OV Office Visit 17:20:34 CDT CPT-24096 Abx/Therapy Injection 15:05:57 CDT CPT-J1100 Decadron 8mg (Dexamethasone) 14:44:57 CDT CPT-J1040 Depo Medrol 80 mg (Methyl Prednisolone Acetate) 14:44: 57 CDT CPT-JTINJ Joint Injection 10:17:37 CDT CPT-18743 Administration 2+ single or combination vaccines inc oral 13:01:46 PLANT ATTENDANT CPT-63749 Administration single or combination vaccine inc oral 13 :01:46 PLANT ATTENDANT CPT-69183 Pneumovax 13:01:46 PLANT ATTENDANT CPT-69253 Influenza split virus > age 3 13:01:46 PLANT ATTENDANT CPT-28512 Administration single or combination vaccine inc oral 08 :56:49 CDT CPT-19159 Tdap 08:56:49 CDT
--- OUTSIDE RECORDS SUMMARY | 2017-03-22 00:20 | XMS REPORT | Clinical Summary ---
Author Author Admin, MARGRET Organization [employer] Address Unknown Phone Unavailable Allergies, Adverse Reactions, Alerts Allergy Name Reaction Description Start Date Severity Status Provider VALENTIN Critical Active Rodrigo Montemayorl [employer] OPERATOR CHLORHEXIDINE GLUCONATE tongue and gums swollen Critical Active Hoa Kabaford RMA NORFLEX Rash Critical Active Rowenaina Farshadzell [employer] PRINTER OPERATOR TRAZODONE HCL sees things Critical Active [...] Active Hoa Otto [facility] Old myocardial infarction Pelvic pain 789.09 Active Yolande Lindsay MD PhD Abdominal pain, other specified site; multiple sites Edema 782.3 Active Yolande Lindsay MD PhD Edema Rash 782.1 Active Yolande Lindsay MD PhD Rash and other nonspecific skin eruption Back pain, lumbar 724.2 Active Gab Padron MD Lumbago Cough 786.2 Active Jillina Tyrel [employer] PRINTER OPERATOR Cough 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 Jillina Frazellilian ZAPATAN 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 Anemia 285.9 Active Gab Padron MD Anemia, unspecified Conjunctivitis 372.30 Active Jillnacho Sarah APRN Conjunctivitis, unspecified Sinusitis 473.9 Active Jillina Frazell [employer] PRINTER OPERATOR Unspecified sinusitis (chronic) FOOT PAIN, RIGHT ICD-729.5 [...] 1 po BID x 10 days CEFDINIR 66311633675 No Longer Active Jillina Fracharlottel [employer] PRINTER OPERATOR Active FLUTICASONE PROPIONATE 50 MCG/ACT SUSP 1 to 2 sprays each nostril daily 04/21 FLUTICASONE PROPIONATE 00954097868 Active Jillina Frazell [employer] PRINTER OPERATOR Active POLYTRIM 78460-6.1 UNIT/ML-% SOLN 1 gtt to affected eye q3h x 7 days POLYMYXIN B-TRIMETHOPRIM 42250809062 Active Jillina Frazell [employer] PRINTER OPERATOR Active CHERATUSSIN AC 100-10 MG/5ML SYRP 1 tsp by mouth every 4 hours as needed for cough GUAIFENESIN-CODEINE 72264554030 Active Gab Padron MD Active CEFTIN 500 MG TAB 1 twice a day CEFUROXIME AXETIL 02508475612 No Longer Active Gab Padron MD Active AZITHROMYCIN 250 MG TABS 2 po qd x 1 day, then 1 po qd x 4 days AZITHROMYCIN 76118192038 No Longer Active Silvestrellnacho Sarah APRN Active CLARITIN 10 MG TAB 1 tablet by mouth daily as needed for allergies LORATADINE 30333069157 Active Rodrigo Sarah APRN Active OXYCODONE HCL 5 MG ORAL CAPS 1 TAB PO Q HS OXYCODONE HCL 96521889095 No Longer Active Rodrigo Sarah APRN Active NIASPAN 500 MG ORAL CR-TABS 1 pill nightly x 1 week, then 2 pills nightly x 1 week, then 3 pills nightly x 1 week, then 4 pills nightly NIACIN (ANTIHYPERLIPIDEMIC) 48213327691 No Longer Active Rodrigo Sarah APRN Active NIACIN 500 MG TABS 1 pill by mouth nightly x 1 week, then 2 pills x 1 week, then 3 pills x 1 week, then 4 pills nightly - take after evening meal, with applesauce or an apple NIACIN 11873557713 No Longer Active Yolande Lindsay MD PhD Active FISH OIL 1000 MG CAPS 3 pills daily OMEGA-3 FATTY ACIDS 52891444698 Active Yolande Lindasy MD PhD Active TRIAMCINOLONE ACETONIDE 0.1 % CREA apply bid sparingly to rash TRIAMCINOLONE ACETONIDE 61128273805 Active Yolande Lindsay MD PhD Active FUROSEMIDE 20 MG TAB 1 tablet by mouth daily FUROSEMIDE 25369097964 Active Yolande Lindsay MD PhD Active LISINOPRIL 20 MG ORAL TABS 1 tab by mouth daily LISINOPRIL 43746655847 Active Gab Padron MD Active FUROSEMIDE 20 MG TABS 1 pill by mouth daily, for edema FUROSEMIDE 27135769121 No Longer Active Yolande Lindsay MD PhD Active ATORVASTATIN CALCIUM 10 MG TABS 1 pill by mouth daily, for cholesterol 09/06 ATORVASTATIN CALCIUM 33980149304 Active Yolande Lindsay MD PhD Active CALCIUM 600+D PLUS MINERALS 600-400 MG-UNIT ORAL CHEW 1 tab by mouth daily CALCIUM CARBONATE-VIT D-MIN 99222769943 No Longer Active Yolande Lindsay MD PhD Active CYCLOBENZAPRINE HCL 10 MG TABS 1 tablet by mouth three times daily as needed for muscle spasm/pain CYCLOBENZAPRINE HCL 15132303867 Active Yolande Lindsay MD PhD Active ONDANSETRON 4 MG TBDP 1 q4h PRN nausea ONDANSETRON 39564530856 Active Yolande Lindsay MD PhD Active ADULT ASPIRIN EC LOW STRENGTH 81 MG TBEC Take 1 tablet by mouth daily 2014 ASPIRIN 68102272104 No Longer Active Yolande Lindsay MD PhD Active ZOFRAN ODT 4 MG TBDP 1 pill dissolved by mouth every 4 hours if needed for nausea ONDANSETRON 39132376988 No Longer Active Yolande Lindsay MD PhD Active CEFTIN 500 MG TAB 1 twice a day CEFUROXIME AXETIL 02391747128 No Longer Active Yolande Lindsay MD PhD Active ALBUTEROL SULFATE 0.083 % NEBU SOLN one vial per nebulizer every 4-6 hours as needed ALBUTEROL SULFATE 57866132857 No Longer Active Alexis Ordaz MD Active DOXYCYCLINE HYCLATE 100 MG CAP 1 cap by mouth twice daily DOXYCYCLINE HYCLATE 93513009799 No Longer Active Yolande Lindsay MD PhD Active CYCLOBENZAPRINE HCL 10 MG TABS 1/2 - 1 tab by mouth three times daily if needed for spasms/pain CYCLOBENZAPRINE HCL 02810969709 No Longer Active Yolande Lindsay MD PhD Active TRILEPTAL 600 MG TABS Take one 1/2 tablet in Am and 1 tablet at night OXCARBAZEPINE 28023841087 Active Yolande Lindsay MD PhD Active AZITHROMYCIN 250 MG TABS 2 pills on day 1, then 1 pill daily x 4 days AZITHROMYCIN 04831399384 No Longer Active Yolande Lindsay MD PhD Active XOPENEX 1.25 MG/3ML NEBU 1 neb every 4 hours if needed for cough/congestion LEVALBUTEROL HCL 40113718960 No Longer Active Yolande Lindsay MD PhD Active DOXYCYCLINE HYCLATE 100 MG TAB 1 tab twice a day for 14 days 2013 DOXYCYCLINE HYCLATE 74049888920 No Longer Active Yolande Lindsay MD PhD Active LEVOTHYROXINE SODIUM 75 MCG TABS Take 1 tab daily LEVOTHYROXINE SODIUM 06987828018 Active Gab Padron MD Active PREVACID 30 MG CPDR Take 1 tablet by mouth daily-PRN LANSOPRAZOLE 80059255689 No Longer Active Yolande Lindsay MD PhD Active PA VITAMIN D-3 2000 UNIT CAPS 1 CAP PO DAILY CHOLECALCIFEROL 77663237340 No Longer Active Yolande Lindsay MD PhD Active CEFDINIR 300 MG CAPS by mouth twice a day CEFDINIR 27430417355 No Longer Active Gab Padron MD Active TOPAMAX 50 MG TABS 1 PO twice daily TOPIRAMATE 41865146128 Active Yolande Lindsay MD PhD Active AZITHROMYCIN 250 MG TABS 2 po qd x 1 day, then 1 po qd x 4 days AZITHROMYCIN 54261458018 No Longer Active Yolande Lindsay MD PhD Active DICLOFENAC SODIUM 75 MG TBEC 1 tablet by q 12 hours PRN headaches DICLOFENAC SODIUM 03660940868 No Longer Active Yolande Lindsay MD PhD Active FLONASE 50 MCG/ACT SUSP 1 spray each nostril am and hs FLUTICASONE PROPIONATE 74292152745 No Longer Active Todd Callaway MD Active ANUSOL-HC 25 MG SUPPOSITORY 1 rectally twice a day as needed for hemorrhoids HYDROCORTISONE JAYDEN (RECTAL) 82623390146 No Longer Active Yolande Lindsay MD PhD Active ANUSOL-HC 25 MG SUPPOSITORY 1 suppository rectally each evening as needed for anal fissure HYDROCORTISONE JAYDEN (RECTAL) 26705908502 No Longer Active LONNIE Iglesias Active VALIUM 5 MG TAB 1 po 30 minutes prior to your MRI DIAZEPAM 49875177540 No Longer Active LONNIE Iglesias Active METHOCARBAMOL 750 MG TABS 1 PO QID PRN METHOCARBAMOL 68476023741 No Longer Active Daphne Wetzel [employer] PRINTER OPERATOR Active NITROSTAT 0.4 MG SUBL as directed NITROGLYCERIN 99368362233 No Longer Active Rodrigo Sarah [employer] PRINTER OPERATOR Active ROBAXIN-750 750 MG TABS 2 four times a day for 3 days as needed for muscle spasm, then 1 four times a day as needed METHOCARBAMOL 50257976137 No Longer Active Silvestrellina Tyrel [employer] PRINTER OPERATOR Active HYDROCODONE-ACETAMINOPHEN 5-325 MG TABS 1 q 4-6 hrs prn HYDROCODONE-ACETAMINOPHEN 26154465307 No Longer Active Silvestrellina Tyrel ZAPATAN Active VERAPAMIL HCL CR 180 MG CR-TABS TAKE 1 TAB DAILY VERAPAMIL HCL 41229684013 No Longer Active Yolande Lindsay MD PhD Active BACTRIM DS 800-160 MG TAB 1 tab by mouth twice daily TRIMETHOPRIM-SULFAMETHOXAZOLE 03745990769 No Longer Active Yolande Lindsay MD PhD Active NEXIUM 40 MG PACK 1 by mouth daily ESOMEPRAZOLE MAGNESIUM 34790507031 No Longer Active Des Hines MD Active EPIPEN 2-CHARLETTE 0.3 MG/0.3ML OMARI as need for allergic reaction EPINEPHRINE 08372039421 Active Yolande Lindsay MD PhD Active NEXIUM 40 MG CPDR 1 PO Q D DAY ESOMEPRAZOLE MAGNESIUM 47470900710 No Longer Active Sadia Perry RN Active NEXIUM 40 MG PACK 1 by mouth daily NEXIUM 40 MG PACK ESOMEPRAZOLE MAGNESIUM Inactive VERAPAMIL HCL CR 180 MG CR-TABS TAKE 1 TAB DAILY VERAPAMIL HCL CR 180 MG CR-TABS VERAPAMIL HCL Inactive HYDROCODONE-ACETAMINOPHEN 5-325 MG TABS 1 q 4-6 hrs prn HYDROCODONE-ACETAMINOPHEN 5-325 MG TABS 816164 HYDROCODONE-ACETAMINOPHEN Inactive ROBAXIN-750 750 MG TABS 2 four times a day for 3 days as needed for muscle spasm, then 1 four times a day as needed ROBAXIN-750 750 MG TABS 082958 METHOCARBAMOL Inactive NITROSTAT 0.4 MG SUBL as directed NITROSTAT 0.4 MG SUBL NITROGLYCERIN Inactive METHOCARBAMOL 750 MG TABS 1 PO QID PRN METHOCARBAMOL 750 MG TABS 111139 METHOCARBAMOL Inactive VALIUM 5 MG TAB 1 po 30 minutes prior to your MRI VALIUM 5 MG TAB 930740 DIAZEPAM Inactive ANUSOL-HC 25 MG SUPPOSITORY 1 suppository rectally each evening as needed for anal fissure ANUSOL-HC 25 MG SUPPOSITORY 2267983 HYDROCORTISONE JAYDEN (RECTAL) Inactive ANUSOL-HC 25 MG SUPPOSITORY 1 rectally twice a day as needed for hemorrhoids ANUSOL-HC 25 MG SUPPOSITORY 3141191 HYDROCORTISONE JAYDEN (RECTAL) Inactive FLONASE 50 MCG/ACT SUSP 1 spray each nostril am and hs FLONASE 50 MCG/ACT SUSP FLUTICASONE PROPIONATE Inactive DICLOFENAC SODIUM 75 MG TBEC 1 tablet by q 12 hours PRN headaches DICLOFENAC SODIUM 75 MG TBEC 152767 DICLOFENAC SODIUM Inactive PA VITAMIN D-3 2000 UNIT CAPS 1 CAP PO DAILY PA VITAMIN D-3 2000 UNIT CAPS CHOLECALCIFEROL Inactive PREVACID 30 MG CPDR Take 1 tablet by mouth daily-PRN PREVACID 30 MG CPDR 505604 LANSOPRAZOLE Inactive DOXYCYCLINE HYCLATE 100 MG TAB 1 tab twice a day for 14 days 2013 DOXYCYCLINE HYCLATE 100 MG TAB 4341092 DOXYCYCLINE HYCLATE Inactive XOPENEX 1.25 MG/3ML NEBU 1 neb every 4 hours if needed for cough/congestion XOPENEX 1.25 MG/3ML NEBU 485547 LEVALBUTEROL HCL Inactive CYCLOBENZAPRINE HCL 10 MG TABS 1/2 - 1 tab by mouth three times daily if needed for spasms/pain CYCLOBENZAPRINE HCL 10 MG TABS 409574 CYCLOBENZAPRINE HCL Inactive ALBUTEROL SULFATE 0.083 % NEBU SOLN one vial per nebulizer every 4-6 hours as needed ALBUTEROL SULFATE 0.083 % NEBU SOLN 022051 ALBUTEROL SULFATE Inactive CEFTIN 500 MG TAB 1 twice a day CEFTIN 500 MG TAB 382000 CEFUROXIME AXETIL Inactive ZOFRAN ODT 4 MG TBDP 1 pill dissolved by mouth every 4 hours if needed for nausea ZOFRAN ODT 4 MG TBDP 206721 ONDANSETRON Inactive ADULT ASPIRIN EC LOW STRENGTH 81 MG TBEC Take 1 tablet by mouth daily 2014 ADULT ASPIRIN EC LOW STRENGTH 81 MG TBEC 825682 ASPIRIN Inactive CALCIUM 600+D PLUS MINERALS 600-400 [...] or an apple NIACIN 500 MG TABS 926078 NIACIN Inactive NIASPAN 500 MG ORAL CR-TABS 1 pill nightly x 1 week, then 2 pills nightly x 1 week, then 3 pills nightly x 1 week, then 4 pills nightly NIASPAN 500 MG ORAL CR-TABS NIACIN (ANTIHYPERLIPIDEMIC) Inactive OXYCODONE HCL 5 MG ORAL CAPS 1 TAB PO Q HS OXYCODONE HCL 5 MG ORAL CAPS 7054196 OXYCODONE HCL Inactive BACTRIM DS 800-160 MG TAB 1 tab by mouth twice daily BACTRIM DS 800-160 MG TAB 895212 TRIMETHOPRIM-SULFAMETHOXAZOLE Inactive AZITHROMYCIN 250 MG TABS 2 po qd x 1 day, then 1 po qd x 4 days AZITHROMYCIN 250 MG TABS 8485749 AZITHROMYCIN Inactive CEFDINIR 300 MG CAPS by mouth twice a day CEFDINIR 300 MG CAPS 20020708 CEFDINIR Inactive AZITHROMYCIN 250 MG TABS 2 pills on day 1, then 1 pill daily x 4 days AZITHROMYCIN 250 MG TABS 8633782 AZITHROMYCIN Inactive DOXYCYCLINE HYCLATE 100 MG CAP 1 cap by mouth twice daily DOXYCYCLINE HYCLATE 100 MG CAP 7754137 DOXYCYCLINE HYCLATE Inactive FUROSEMIDE 20 MG TABS 1 pill by mouth daily, for edema FUROSEMIDE 20 MG TABS 187454 FUROSEMIDE Inactive AZITHROMYCIN 250 MG TABS 2 po qd x 1 day, then 1 po qd x 4 days AZITHROMYCIN 250 MG TABS 9155689 AZITHROMYCIN Inactive CEFTIN 500 MG TAB 1 twice a day CEFTIN 500 MG TAB 042292 CEFUROXIME AXETIL Inactive CEFDINIR 300 MG CAPS 1 po BID x 10 days CEFDINIR 300 MG CAPS 345283 CEFDINIR Inactive Immunizations Vaccine Administration Date Value Standard Description Seasonal influenza vaccine, injectable, containing preservative, for > 3 years old (Afluria, FluLaval, Fluzone, Fluvirin, Fluarix, Agriflu(>=18 yo)) Fluzone (>3 yrs.) [TBP039] Influenza, seasonal, injectable influenza immunization (Flu Vax) has been administered Influenza - Unspecified Formulation [CVX88] influenza virus vaccine, unspecified formulation pneumococcal immunization administered Pneumovax 23 [CVX33] pneumococcal polysaccharide vaccine, 23 valent Seasonal influenza vaccine, injectable, containing preservative, for > 3 years old (Afluria, FluLaval, Fluzone, Fluvirin, Fluarix, Agriflu(>=18 yo)) Fluzone (>3 yrs.) [PWW119] Influenza, seasonal, injectable dT (Diphtheria and Tetanus) booster given given Td(adult) unspecified formulation Boostrix (Tetanus toxoid, reduced diphtheria toxoid and acellular pertussis vaccine, adsorbed), booster Boostrix [LYC664] tetanus toxoid, reduced diphtheria toxoid, and acellular [...] Panel - Chemistry sodium, serum 145 mmol/L 799-251 8196/06/22 potassium, serum 3.9 mmol/L 3.5-5.2 chloride, serum 109 mmol/L 98-107 carbon dioxide, venous blood 23.4 mmol/L 21.0-32.0 blood glucose 92 mg/dL 65-110 calcium, serum 8.2 mg/dL 8.5-10.1 urea nitrogen, blood 24 mg/dL 7-18 creatinine, serum 1.30 mg/dL 0.60-1.30 Lab Report: [facility] Advanced Lipid and Inlammation Panel /91858 - Chemistry cholesterol, serum 198 mg/dL [phone]/04/30 HDL cholesterol, serum 65 mg/dL > OR=46 triglyceride, serum, fasting 82 mg/dL LDL cholesterol, serum 117 mg/dL cholesterol/HDL ratio, serum 3.0 calc < OR=5.0 cholesterol, serum 148 mg/dL 036-878 8773/09/02 HDL cholesterol, serum 55 mg/dL > OR=46 [...] (L) - Chemistry sodium, serum 145 mmol/L 215-437 6741/09/02 potassium, serum 4.6 mmol/L 3.5-5.2 chloride, serum [...] 51 mg/dL 30-200 cholesterol, serum 173 mg/dL 397-246 1396/04/28 HDL cholesterol, serum 63 mg/dL 32-96 LDL [...] mg/dL Encounters Code Encounter Date Provider Facility CPT-44880 Level 3 Est. Patient 11:02:19 CHURN DRILLER Gab Padron MD [facility] CPT-54486 Level 4 Est. Patient 22:24:31 CHURN DRILLER Gab Padron MD [facility] CPT-52427 Level 3 Est. Patient 18:33:46 CHURN DRILLER Gab Padron MD [facility] CPT-27951 Level 3 Est. Patient 16:19:11 CDT Yolande Lindsay MD [facility] CPT-97497 Level 3 Est. Patient 18:59:14 CDT Yolande Lindsay MD [facility] CPT-20329 Level 4 Est. Patient 21:29:26 CDT Yolande Lindsay MD [facility] CPT-38921 Level 3 Est. Patient 07:37:45 CDT Yolande Lindsay MD [facility] CPT-54811 Level 3 Est. Patient 17:03:46 CDT Yolande Lindsay MD [facility] CPT-22585 Level 4 Est. Patient 20:02:13 CHURN DRILLER Yolande Lindsay MD PhD [facility] CPT-72222 Level 3 Est. Patient 16:02:07 CHURN DRILLER Alexis Ordaz MD [facility] CPT-33880 Level 3 Est. Patient 12:41:24 CHURN DRILLER Yolande Lindsay MD PhD [facility] CPT-28396 Level 3 Est. Patient 15:41:20 CHURN DRILLER Yolande Lindsay MD [facility] CPT-27292 Level 3 Est. Patient 13:20:02 CHURN DRILLER Yolande Lindsay MD PhD [facility]-59149 Level 3 Est. Patient 15:00:38 CDT Jared Og MD [facility]-35970 Level 3 Est. Patient 10:22:32 CDT Yolande Lindsay MD [facility]-27070 Level 3 Est. Patient 17:12:58 CDT Yolande Lindsay MD [facility]-78086 Level 4 Est. Patient 13:30:58 CDT Yolande Lindsay MD [facility] CPT-88546 Level 4 New Patient 09:02:42 CDT Jared Og MD [facility]-86523 Level 3 Est. Patient 08:19:07 CDT Yolande Lindsay MD [facility]-75464 Level 3 Est. Patient 12:00:13 CHURN DRILLER Gba Padron MD [facility]-39982 Level 3 Est. Patient 16:15:23 CHURN DRILLER Yolande Lindsay MD [facility]-95753 Level 2 Est. Patient 19:47:15 CDT Yolande Lindsay MD [facility]-54989 Level 3 Est. Patient 21:38:31 CDT Yolande Lindsay MD [facility] CPT-80837 Level 3 Est. Patient 10:25:12 CDT Adiel PERAZA [facility] CPT-36596 Level 4 Est. Patient 10:51:58 CDT Yolande Lindsay MD [facility]-48940 Level 3 Est. Patient 14:04:55 CHURN DRILLER Rodrigo Sarah [facility]-69692 Level 3 Est. Patient 10:46:35 CHURN DRILLER Rodrigo Sarah [facility] CPT-23572 Level 3 Est. Patient 14:24:37 CHURN DRILLER Yolande Lindsay MD [facility] CPT-51055 Level 3 Est. Patient 17:41:58 CHURN DRILLER Yolande Lindsay MD [facility] CPT-16655 Level 2 Est. Patient 22:01:41 CHURN DRILLER Rodrigo Sarah [facility] CPT-20112 Level 2 Est. Patient 22:01:11 CHURN DRILLER Rodrigo Sarah [facility] CPT-16813 Level 3 Est. Patient 10:12:29 CHURN DRILLER Rodrigo Sarah [facility]-81482 Level 3 Est. Patient 11:05:44 CDT Alexis Ordaz MD [facility] CPT-07305 Level 3 Est. Patient 14:57:20 CDT Yolande Lindsay MD [facility] CPT-48402 Level 3 Est. Patient 14:40:57 CDT Yolande Lindsay MD [facility] CPT-52787 Level 3 Est. Patient 20:55:40 CDT Yolande Lindsay MD [facility] CPT-05020 Level 3 Est. Patient 12:42:38 CHURN DRILLER Yolande Lindsay MD [facility]-49937 Level 3 Est. Patient 11:54:49 CHURN DRILLER Des Hines MD [facility]-66367 Level 3 Est. Patient 17:06:38 CDT Dewayne PERAZA [facility] Procedures Code Procedure Name Date Entry Date Standard Description CPT-10556 LS spine comp w obliq 13:28:00 CHURN DRILLER CPT-J1040 Depo Medrol 80 mg (Methyl Prednisolone Acetate) 10:51: 28 CHURN DRILLER CPT-J1100 Decadron 8mg (Dexamethasone) 10:51:28 CHURN DRILLER CPT-06850 Abx/Therapy Injection 10:51:28 CHURN DRILLER [id number] Event Monitor - MC Transmission 09:12:32 CDT 08/06 [id number] Event Monitor - MC review and interp 09:12:32 CDT [id number] Event Monitor - MC recording 09:12:32 CDT CPT-88871 EKG Trac and Interp 16:50:22 CDT CPT-J1030 Depo Medrol 40 mg (Methyl Prednisolone Acetate) 17:05: 54 CDT CPT-J1100 Decadron 4mg (Dexamethasone) 17:05:54 CDT CPT-32667 Abx/Therapy Injection 17:05:54 CDT CPT-J1100 Decadron 4mg (Dexamethasone) 16:55:28 CDT CPT-J1030 Depo Medrol 40 mg (Methyl Prednisolone Acetate) 16:55: 28 CDT CPT-23078 Ankle Complete - Min 3V 15:58:50 CDT CPT-18705 Knee 3V 15:58:50 CDT CPT-09936 Hip comp min 2V 15:58:50 CDT CPT-J2270 Morphine Sulfate 10 mg 14:25:44 CHURN DRILLER CPT-J2550 Phenergan 12.5 mg (Promethazine) 14:25:44 CHURN DRILLER CPT-91169 Abx/Therapy Injection 14:25:44 CHURN DRILLER CPT-J2550 Phenergan 12.5 mg (Promethazine) 14:08:03 CHURN DRILLER CPT-J2270 Morphine Sulfate 10 mg 14:08:03 CHURN DRILLER CPT-35509 Bladder Scan 15:00:38 CDT CPT-TCMM Transitional Care Mgmt-Moderate 09:52:22 CDT CPT-J1030 Depo Medrol 40 mg (Methyl Prednisolone Acetate) 10:55: 18 CDT CPT-J1100 Decadron 4mg (Dexamethasone) 10:55:18 CDT CPT-55857 Abx/Therapy Injection 10:55:18 CDT CPT-J1030 Depo Medrol 40 mg (Methyl Prednisolone Acetate) 10:22: 32 CDT CPT-J1100 Decadron 4mg (Dexamethasone) 10:22:32 CDT CPT-18467 Postop F/U Visit 14:37:13 CDT CPT-43992 Ankle Complete - Min 3V 17:11:58 CDT CPT-85079 Foot comp min 3V 17:11:58 CDT CPT-78135 Bladder Scan 09:56:58 CDT CPT-00761 Postop F/U Visit 09:56:58 CDT CPT-96987 Cystoscopy 09:02:42 CDT CPT-53531 Bladder Scan 09:02:42 CDT CPT-60298 Abd single AP View 16:00:35 CDT CPT-80432 Administration single or combination vaccine inc oral 10 :15:43 CDT CPT-81984 Influenza split virus > age 3 10:15:43 CDT CPT-06100 Nail Avulsion 09:24:57 CDT CPT-OV Office Visit 11:15:41 CDT CPT-54466 Abx/Therapy Injection 10:51:30 CDT CPT-J3301 Kenalog 40 mg (Triamcinolone Acetonide) 10:25:12 CDT CPT-J1100 Decadron 4mg (Dexamethasone) 10:25:12 CDT CPT-73251 Anoscopy diagnostic 10:36:12 CDT CPT-OV Office Visit 15:34:31 CDT CPT-24923 Abx/Therapy Injection 08:21:15 CHURN DRILLER CPT-J1885 Toradol 60 mg (Ketorolac) 10:46:35 CHURN DRILLER CPT-OV Office Visit 19:51:16 CHURN DRILLER CPT-29416 Spec Collection and Handling Fee 14:34:18 CHURN DRILLER CPT-PV Prev. Care Visit 14:19:18 CHURN DRILLER CPT-98389 Postop F/U Visit 14:47:51 CHURN DRILLER CPT-70424 Postop F/U Visit 15:15:14 CHURN DRILLER CPT-71823 Postop F/U Visit 14:41:43 CDT CPT-17641 Postop F/U Visit 15:47:46 CDT CPT-OV Office Visit 15:27:23 CDT CPT-OV Office Visit 17:20:34 CDT CPT-95774 Abx/Therapy Injection 15:05:57 CDT CPT-J1100 Decadron 8mg (Dexamethasone) 14:44:57 CDT CPT-J1040 Depo Medrol 80 mg (Methyl Prednisolone Acetate) 14:44: 57 CDT CPT-JTINJ Joint Injection 10:17:37 CDT CPT-54284 Administration 2+ single or combination vaccines inc oral 13:01:46 CHURN DRILLER CPT-43505 Administration single or combination vaccine inc oral 13 :01:46 CHURN DRILLER CPT-00126 Pneumovax 13:01:46 CHURN DRILLER CPT-64466 Influenza split virus > age 3 13:01:46 CHURN DRILLER CPT-13081 Administration single or combination vaccine inc oral 08 :56:49 CDT CPT-96505 Tdap 08:56:49 CDT
--- OUTSIDE RECORDS SUMMARY | 2017-03-22 00:21 | XMS REPORT ---
Author Author [facility] [employer] [facility] Medical Staff Organization [facility] Address [address] [id number] Phone [phone] Summary purpose TRANSITION OF CARE AUTO GENERATION [...]
--- OUTSIDE RECORDS SUMMARY | 2017-03-22 00:23 | XMS REPORT | Clinical Summary ---
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 Jillina Frazellilian [facility] 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 Anemia 285.9 Active Gab Padron MD Anemia, unspecified Conjunctivitis 372.30 Active Jillnacho Sarah APRN Conjunctivitis, unspecified Sinusitis 473.9 Active Silvestrellina Frazell [facility] Unspecified sinusitis (chronic) Nonspecific syndrome suggestive of viral illness 079.99 Active Jillina Frazell [facility] Unspecified viral infection Laryngitis 464.00 Active Jillina Frazell [facility] Acute laryngitis without mention of obstruction Abdominal [...] Flank pain, left 789.09 Active Jillina Frazell [facility] Abdominal pain, other specified site; multiple sites Abdominal pain, generalized 789.07 Active Jillina Farshadzell [facility] Abdominal pain, generalized Back pain, thoracic region, left 724.1 Active Jillina Frazell [facility] Pain in thoracic spine Abdominal pain, left [...] MD PhD 07/16 RECTAL BLEEDING ICD-569.3 Inactive Yloande Lindsay MD PhD INGROWN TOENAIL ICD-703.0 Inactive [...] every 6 hrs prn pain TRAMADOL HCL 85466129990 Active Gab Padron MD Active PREDNISONE 20 MG TAB 2 tabs daily for 3 days, 1 tab daily for 3 days, 1/2 tab daily for 2 days PREDNISONE 20270598635 No Longer Active Gab Padron MD Active ZOFRAN ODT 4 MG TBDP 1 po q6hr PRN Nausea ONDANSETRON 97329969623 Active Gab Padron MD Active IBUPROFEN 600 MG TAB 1 tablet by mouth every 6 hours for 7 days, then 1 tablet every 6 hours as needed. Take with food IBUPROFEN 58593164077 Active Jillina Frazell [facility] Active BACTRIM DS 800-160 MG TAB 1 tab by mouth twice daily TRIMETHOPRIM-SULFAMETHOXAZOLE 68777656414 No Longer Active Gab Padron MD Active ADVAIR DISKUS 250-50 MCG/DOSE AEPB 1 puff BID FLUTICASONE- SALMETEROL 92282306041 Active Silvestrellnacho Sarah APRN Active LEVOTHYROXINE SODIUM 75 MCG TABS Take 1 tab daily LEVOTHYROXINE SODIUM 75580879037 No Longer Active Mariana FLEMING Active SYNTHROID 88 MCG ORAL TABS Take one by mouth daily LEVOTHYROXINE SODIUM 55923870783 Active Gab Padron MD Active CHERATUSSIN AC 100-10 MG/5ML SYRP 1 tsp by mouth every 4 hours as needed for cough GUAIFENESIN-CODEINE 96825393754 No Longer Active Gab Padron MD Active POLYTRIM 58272-4.1 UNIT/ML-% SOLN 1 gtt to affected eye q3h x 7 days POLYMYXIN B-TRIMETHOPRIM 17481451621 No Longer Active Gab Padron MD Active FLUTICASONE PROPIONATE 50 MCG/ACT SUSP 1 to 2 sprays each nostril daily 04/21 FLUTICASONE PROPIONATE 69203941479 No Longer Active Gab Padron MD Active TRILEPTAL 600 MG TABS Take one 1 tablet in Am and 1 tablet at night OXCARBAZEPINE 38039492465 Active Gab Padron MD Active CEFDINIR 300 MG CAPS 1 po BID x 10 days CEFDINIR 68622095136 No Longer Active Rodrigo Sarah APRN Active CEFTIN 500 MG TAB 1 twice a day CEFUROXIME AXETIL 00297328335 No Longer Active Gab Padron MD Active AZITHROMYCIN 250 MG TABS 2 po qd x 1 day, then 1 po qd x 4 days AZITHROMYCIN 26318260197 No Longer Active Rodrigo Sarah APRN Active CLARITIN 10 MG TAB 1 tablet by mouth daily as needed for allergies LORATADINE 08837083390 Active Rodrigo Sarah APRN Active OXYCODONE HCL 5 MG ORAL CAPS 1 TAB PO Q HS OXYCODONE HCL 97974934927 No Longer Active Rodrigo Sarah APRN Active NIASPAN 500 MG ORAL CR-TABS 1 pill nightly x 1 week, then 2 pills nightly x 1 week, then 3 pills nightly x 1 week, then 4 pills nightly NIACIN (ANTIHYPERLIPIDEMIC) 50963151041 No Longer Active Rodrigo Sarah APRN Active NIACIN 500 MG TABS 1 pill by mouth nightly x 1 week, then 2 pills x 1 week, then 3 pills x 1 week, then 4 pills nightly - take after evening meal, with applesauce or an apple NIACIN 11374419682 No Longer Active Yolande Lindsay MD PhD Active FISH OIL 1000 MG CAPS 3 pills daily OMEGA-3 FATTY ACIDS 25454319395 Active Yolande Lindsay MD PhD Active TRIAMCINOLONE ACETONIDE 0.1 % CREA apply bid sparingly to rash TRIAMCINOLONE ACETONIDE 69565704332 Active Yolande Lindsay MD PhD Active FUROSEMIDE 20 MG TAB 1 tablet by mouth daily FUROSEMIDE 31328697613 Active Tisha Lambert APRN Active LISINOPRIL 20 MG ORAL TABS 1 tab by mouth daily LISINOPRIL 73449326847 Active Tisha Lambert APRN Active FUROSEMIDE 20 MG TABS 1 pill by mouth daily, for edema FUROSEMIDE 14179681910 No Longer Active Yolande Lindsay MD PhD Active ATORVASTATIN CALCIUM 10 MG TABS 1 pill by mouth daily, for cholesterol 09/06 ATORVASTATIN CALCIUM 28759449675 Active Gab Padron MD Active CALCIUM 600+D PLUS MINERALS 600-400 MG-UNIT ORAL CHEW 1 tab by mouth daily CALCIUM CARBONATE-VIT D-MIN 49669373807 No Longer Active Yolande Lindsay MD PhD Active CYCLOBENZAPRINE HCL 10 MG TABS 1 tablet by mouth three times daily as needed for muscle spasm/pain CYCLOBENZAPRINE HCL 30676793376 Active Yolande Lindsay MD PhD Active ONDANSETRON 4 MG TBDP 1 q4h PRN nausea ONDANSETRON 24607185292 Active Yolande Lindsay MD PhD Active ADULT ASPIRIN EC LOW STRENGTH 81 MG TBEC Take 1 tablet by mouth daily 2014 ASPIRIN 43792131931 No Longer Active Yolande Lindsay MD PhD Active ZOFRAN ODT 4 MG TBDP 1 pill dissolved by mouth every 4 hours if needed for nausea ONDANSETRON 17763631245 No Longer Active Yolande Lindsay MD PhD Active CEFTIN 500 MG TAB 1 twice a day CEFUROXIME AXETIL 75260039203 No Longer Active Yolande Lindsay MD PhD Active ALBUTEROL SULFATE 0.083 % NEBU SOLN one vial per nebulizer every 4-6 hours as needed ALBUTEROL SULFATE 23309961247 No Longer Active Alexis Ordaz MD Active DOXYCYCLINE HYCLATE 100 MG CAP 1 cap by mouth twice daily DOXYCYCLINE HYCLATE 50608187801 No Longer Active Yolande Lindsay MD PhD Active CYCLOBENZAPRINE HCL 10 MG TABS 1/2 - 1 tab by mouth three times daily if needed for spasms/pain CYCLOBENZAPRINE HCL 39370768090 No Longer Active Yolande Lindsay MD PhD Active AZITHROMYCIN 250 MG TABS 2 pills on day 1, then 1 pill daily x 4 days AZITHROMYCIN 41528710709 No Longer Active Yolande Lindsay MD PhD Active XOPENEX 1.25 MG/3ML NEBU 1 neb every 4 hours if needed for cough/congestion LEVALBUTEROL HCL 79478637584 No Longer Active Yolande Lindsay MD PhD Active DOXYCYCLINE HYCLATE 100 MG TAB 1 tab twice a day for 14 days 2013 DOXYCYCLINE HYCLATE 83760680699 No Longer Active Yolande Lindsay MD PhD Active PREVACID 30 MG CPDR Take 1 tablet by mouth daily-PRN LANSOPRAZOLE 88872912617 No Longer Active Yolande Lindsay MD PhD Active PA VITAMIN D-3 2000 UNIT CAPS 1 CAP PO DAILY CHOLECALCIFEROL 11308991791 No Longer Active Yolande Lindsay MD PhD Active CEFDINIR 300 MG CAPS by mouth twice a day CEFDINIR 82758845323 No Longer Active Gab Padron MD Active TOPAMAX 50 MG TABS 1 PO twice daily TOPIRAMATE 48460093122 Active Yolande Lindsay MD PhD Active AZITHROMYCIN 250 MG TABS 2 po qd x 1 day, then 1 po qd x 4 days AZITHROMYCIN 12832040536 No Longer Active Yolande Lindsay MD PhD Active DICLOFENAC SODIUM 75 MG TBEC 1 tablet by q 12 hours PRN headaches DICLOFENAC SODIUM 17203925467 No Longer Active Yolande Lindsay MD PhD Active FLONASE 50 MCG/ACT SUSP 1 spray each nostril am and hs FLUTICASONE PROPIONATE 79244463878 No Longer Active Todd Callaway MD Active ANUSOL-HC 25 MG SUPPOSITORY 1 rectally twice a day as needed for hemorrhoids HYDROCORTISONE JAYDEN (RECTAL) 36163318557 No Longer Active Yolande Lindsay MD PhD Active ANUSOL-HC 25 MG SUPPOSITORY 1 suppository rectally each evening as needed for anal fissure HYDROCORTISONE JAYDEN (RECTAL) 16629232050 No Longer Active LONNIE Iglesias Active VALIUM 5 MG TAB 1 po 30 minutes prior to your MRI DIAZEPAM 93765719624 No Longer Active Bozena LONNIE Coleman Active METHOCARBAMOL 750 MG TABS 1 PO QID PRN METHOCARBAMOL 90477346328 No Longer Active Daphne Wetzel [facility] Active NITROSTAT 0.4 MG SUBL as directed NITROGLYCERIN 67066986505 No Longer Active Rodrigo Sarah [facility] Active ROBAXIN-750 750 MG TABS 2 four times a day for 3 days as needed for muscle spasm, then 1 four times a day as needed METHOCARBAMOL 92173568050 No Longer Active Rodrigo Sarah APRN Active HYDROCODONE-ACETAMINOPHEN 5-325 MG TABS 1 q 4-6 hrs prn HYDROCODONE-ACETAMINOPHEN 34147671636 No Longer Active Rodrigo Sarah APRN Active VERAPAMIL HCL CR 180 MG CR-TABS TAKE 1 TAB DAILY VERAPAMIL HCL 66693578088 No Longer Active Yolande Lindsay MD PhD Active BACTRIM DS 800-160 MG TAB 1 tab by mouth twice daily TRIMETHOPRIM-SULFAMETHOXAZOLE 42358250531 No Longer Active Yolande Lindsay MD PhD Active NEXIUM 40 MG PACK 1 by mouth daily ESOMEPRAZOLE MAGNESIUM 64911044766 No Longer Active Des Hines MD Active EPIPEN 2-CHARLETTE 0.3 MG/0.3ML OMARI as need for allergic reaction EPINEPHRINE 99379221074 Active Yolande Lindsay MD PhD Active NEXIUM 40 MG CPDR 1 PO Q D DAY ESOMEPRAZOLE MAGNESIUM 27448444491 No Longer Active Sadia Perry RN Active NEXIUM 40 MG PACK 1 by mouth daily NEXIUM 40 MG PACK ESOMEPRAZOLE MAGNESIUM Inactive VERAPAMIL HCL CR 180 MG CR-TABS TAKE 1 TAB DAILY VERAPAMIL HCL CR 180 MG CR-TABS VERAPAMIL HCL Inactive HYDROCODONE-ACETAMINOPHEN 5-325 MG TABS 1 q 4-6 hrs prn HYDROCODONE-ACETAMINOPHEN 5-325 MG TABS 916542 HYDROCODONE-ACETAMINOPHEN Inactive ROBAXIN-750 750 MG TABS 2 four times a day for 3 days as needed for muscle spasm, then 1 four times a day as needed ROBAXIN-750 750 MG TABS 018139 METHOCARBAMOL Inactive NITROSTAT 0.4 MG SUBL as directed NITROSTAT 0.4 MG SUBL 877253 NITROGLYCERIN Inactive METHOCARBAMOL 750 MG TABS 1 PO QID PRN METHOCARBAMOL 750 MG TABS 005037 METHOCARBAMOL Inactive VALIUM 5 MG TAB 1 po 30 minutes prior to your MRI VALIUM 5 MG TAB 764848 DIAZEPAM Inactive ANUSOL-HC 25 MG SUPPOSITORY 1 suppository rectally each evening as needed for anal fissure ANUSOL-HC 25 MG SUPPOSITORY 6918118 HYDROCORTISONE JAYDEN (RECTAL) Inactive ANUSOL-HC 25 MG SUPPOSITORY 1 rectally twice a day as needed for hemorrhoids ANUSOL-HC 25 MG SUPPOSITORY 8348932 HYDROCORTISONE JAYDEN (RECTAL) Inactive FLONASE 50 MCG/ACT SUSP 1 spray each nostril am and hs FLONASE 50 MCG/ACT SUSP FLUTICASONE PROPIONATE Inactive DICLOFENAC SODIUM 75 MG TBEC 1 tablet by q 12 hours PRN headaches DICLOFENAC SODIUM 75 MG TBEC 042983 DICLOFENAC SODIUM Inactive PA VITAMIN D-3 2000 UNIT CAPS 1 CAP PO DAILY PA VITAMIN D-3 2000 UNIT CAPS CHOLECALCIFEROL Inactive PREVACID 30 MG CPDR Take 1 tablet by mouth daily-PRN PREVACID 30 MG CPDR 450713 LANSOPRAZOLE Inactive DOXYCYCLINE HYCLATE 100 MG TAB 1 tab twice a day for 14 days 2013 DOXYCYCLINE HYCLATE 100 MG TAB 8960101 DOXYCYCLINE HYCLATE Inactive XOPENEX 1.25 MG/3ML NEBU 1 neb every 4 hours if needed for cough/congestion XOPENEX 1.25 MG/3ML NEBU 730472 LEVALBUTEROL HCL Inactive CYCLOBENZAPRINE HCL 10 MG TABS 1/2 - 1 tab by mouth three times daily if needed for spasms/pain CYCLOBENZAPRINE HCL 10 MG TABS 109720 CYCLOBENZAPRINE HCL Inactive ALBUTEROL SULFATE 0.083 % NEBU SOLN one vial per nebulizer every 4-6 hours as needed ALBUTEROL SULFATE 0.083 % NEBU SOLN 975317 ALBUTEROL SULFATE Inactive CEFTIN 500 MG TAB 1 twice a day CEFTIN 500 MG TAB 787307 CEFUROXIME AXETIL Inactive ZOFRAN ODT 4 MG TBDP 1 pill dissolved by mouth every 4 hours if needed for nausea ZOFRAN ODT 4 MG TBDP 189193 ONDANSETRON Inactive ADULT ASPIRIN EC LOW STRENGTH 81 MG TBEC Take 1 tablet by mouth daily 2014 ADULT ASPIRIN EC LOW STRENGTH 81 MG TBEC 056195 ASPIRIN Inactive CALCIUM 600+D PLUS MINERALS 600-400 [...] or an apple NIACIN 500 MG TABS 825465 NIACIN Inactive NIASPAN 500 MG ORAL CR-TABS 1 pill nightly x 1 week, then 2 pills nightly x 1 week, then 3 pills nightly x 1 week, then 4 pills nightly NIASPAN 500 MG ORAL CR-TABS NIACIN (ANTIHYPERLIPIDEMIC) Inactive OXYCODONE HCL 5 MG ORAL CAPS 1 TAB PO Q HS OXYCODONE HCL 5 MG ORAL CAPS 6512687 OXYCODONE HCL Inactive FLUTICASONE PROPIONATE 50 MCG/ACT SUSP 1 to 2 sprays each nostril daily 04/21 FLUTICASONE PROPIONATE 50 MCG/ACT SUSP 8992234 FLUTICASONE PROPIONATE Inactive POLYTRIM 98352-2.1 UNIT/ML-% SOLN 1 gtt to affected eye q3h x 7 days POLYTRIM 66631-8.1 UNIT/ML-% SOLN 981404 POLYMYXIN B- TRIMETHOPRIM Inactive CHERATUSSIN AC 100-10 MG/5ML SYRP 1 tsp by mouth every 4 hours as needed for cough CHERATUSSIN AC 100-10 MG/5ML SYRP 573369 GUAIFENESIN-CODEINE Inactive LEVOTHYROXINE SODIUM 75 MCG TABS Take 1 tab daily LEVOTHYROXINE SODIUM 75 MCG TABS 569200 LEVOTHYROXINE SODIUM Inactive BACTRIM DS 800-160 MG TAB 1 tab by mouth twice daily BACTRIM DS 800-160 MG TAB 413477 TRIMETHOPRIM-SULFAMETHOXAZOLE Inactive AZITHROMYCIN 250 MG TABS 2 po qd x 1 day, then 1 po qd x 4 days AZITHROMYCIN 250 MG TABS 7517616 AZITHROMYCIN Inactive CEFDINIR 300 MG CAPS by mouth twice a day CEFDINIR 300 MG CAPS 107073 CEFDINIR Inactive AZITHROMYCIN 250 MG TABS 2 pills on day 1, then 1 pill daily x 4 days AZITHROMYCIN 250 MG TABS 6305674 AZITHROMYCIN Inactive DOXYCYCLINE HYCLATE 100 MG CAP 1 cap by mouth twice daily DOXYCYCLINE HYCLATE 100 MG CAP 1558462 DOXYCYCLINE HYCLATE Inactive FUROSEMIDE 20 MG TABS 1 pill by mouth daily, for edema FUROSEMIDE 20 MG TABS 458665 FUROSEMIDE Inactive AZITHROMYCIN 250 MG TABS 2 po qd x 1 day, then 1 po qd x 4 days AZITHROMYCIN 250 MG TABS 6900476 AZITHROMYCIN Inactive CEFTIN 500 MG TAB 1 twice a day CEFTIN 500 MG TAB 446264 CEFUROXIME AXETIL Inactive CEFDINIR 300 MG CAPS 1 po BID x 10 days CEFDINIR 300 MG CAPS 116154 CEFDINIR Inactive BACTRIM DS 800-160 MG TAB 1 tab by mouth twice daily BACTRIM DS 800-160 MG TAB 742746 TRIMETHOPRIM-SULFAMETHOXAZOLE Inactive PREDNISONE 20 MG TAB 2 tabs daily for 3 days, 1 tab daily for 3 days, 1/2 tab daily for 2 days PREDNISONE 20 MG TAB 779330 PREDNISONE Inactive Immunizations Vaccine Administration Date Value Standard Description Seasonal influenza vaccine, injectable, containing preservative, for > 3 years old (Afluria, FluLaval, Fluzone, Fluvirin, Fluarix, Agriflu(>=18 yo)) Fluzone (>3 yrs.) [[id number]] Influenza, seasonal, injectable influenza immunization (Flu Vax) has been administered Influenza - Unspecified Formulation [CVX88] influenza virus vaccine, unspecified formulation pneumococcal immunization administered Pneumovax 23 [CVX33] pneumococcal polysaccharide vaccine, 23 valent Seasonal influenza vaccine, injectable, containing preservative, for > 3 years old (Afluria, FluLaval, Fluzone, Fluvirin, Fluarix, Agriflu(>=18 yo)) Fluzone (>3 yrs.) [GGK539] Influenza, seasonal, injectable dT (Diphtheria and Tetanus) booster given given Td(adult) unspecified formulation Boostrix (Tetanus toxoid, reduced diphtheria toxoid and acellular pertussis vaccine, adsorbed), booster Boostrix [WDR503] tetanus toxoid, reduced diphtheria toxoid, and acellular [...] Panel - Chemistry sodium, serum 142 mmol/L 602-536 1944/06/30 potassium, serum 4.4 mmol/L 3.5-5.2 chloride, serum [...] 0.80 ng/dL 0.76-1.46 sodium, serum 143 mmol/L 014-280 8322/05/02 carbon dioxide, venous blood 25.6 mmol/L 21.0-32.0 [...] PANEL - Chemistry cholesterol, serum 166 mg/dL 385-541 2356/12/06 triglyceride, serum, fasting 86 mg/dL 30-200 HDL [...] Negative mg/dL Negative sodium, serum 142 mmol/L 122-834 3936/07/18 carbon dioxide, venous blood 27.8 mmol/L 21.0-32.0 [...] negative Encounters Code Encounter Date Provider Facility CPT-25171 Level 3 Est. Patient 17:43:55 TALENT MANAGEMENT SPECIALIST Gab Padron MD [facility] CPT-06703 Level 3 Est. Patient 17:07:49 TALENT MANAGEMENT SPECIALIST Jared Og MD [facility] CPT-68028 Level 4 Est. Patient 19:55:18 TALENT MANAGEMENT SPECIALIST Jared Og MD [facility] CPT-30582 Level 3 Est. Patient 20:13:34 GLO Og MD [facility] CPT-58633 Level 4 Est. Patient 16:31:27 CDT Gab Padron MD [facility] CPT-26835 Level 2 Est. Patient 12:23:38 CDT Jared Og MD [facility] CPT-04823 Level 3 Est. Patient 11:01:51 CDT Gab Padron MD [facility] CPT-04246 Level 3 Est. Patient 15:27:02 CDT Jared Og MD [facility] CPT-31808 Level 4 Est. Patient 09:25:27 CDT Gab Padron MD [facility] CPT-81652 Level 3 Est. Patient 10:29:41 CDT Rodrigo Sarah [facility] [place] CPT-37061 Level 4 Est. Patient 17:51:05 CDT Gab Padron MD [facility]-42968 Level 3 Est. Patient 14:18:08 CDT Gab Padron MD [facility] CPT-44926 Level 4 Est. Patient 10:18:54 CDT Gab Padron MD [facility] CPT-73662 Level 3 Est. Patient 11:30:07 CDT Rodrigo Sarah [facility] [place] CPT-17446 Level 4 Est. Patient 21:02:30 TALENT MANAGEMENT SPECIALIST Gab Padron MD [facility] CPT-85782 Level 3 Est. Patient 11:02:19 TALENT MANAGEMENT SPECIALIST Gab Padron MD [facility] CPT-57825 Level 4 Est. Patient 22:24:31 TALENT MANAGEMENT SPECIALIST Gab Padron MD [facility] CPT-71599 Level 3 Est. Patient 18:33:46 TALENT MANAGEMENT SPECIALIST Gab Padron MD [facility] CPT-92265 Level 3 Est. Patient 16:19:11 CDT Yolande Lindsay MD [facility] CPT-38265 Level 3 Est. Patient 18:59:14 CDT Yolande Lindsay MD [facility] CPT-38201 Level 4 Est. Patient 21:29:26 CDT Yolande Lindsay MD [facility]-69716 Level 3 Est. Patient 07:37:45 CDT Yolande Lindsay MD [facility]-83211 Level 3 Est. Patient 17:03:46 CDT Yolande Lindsay MD [facility]-57381 Level 4 Est. Patient 20:02:13 TALENT MANAGEMENT SPECIALIST Yolande Lindsay MD [facility]-91185 Level 3 Est. Patient 16:02:07 TALENT MANAGEMENT SPECIALIST Alexis Ordaz MD [facility]-60535 Level 3 Est. Patient 12:41:24 TALENT MANAGEMENT SPECIALIST Yolande Lindsay MD [facility]-68245 Level 3 Est. Patient 15:41:20 TALENT MANAGEMENT SPECIALIST Yolande Lindsay MD [facility]-50841 Level 3 Est. Patient 13:20:02 TALENT MANAGEMENT SPECIALIST Yolande Lindsay MD [facility] CPT-27377 Level 3 Est. Patient 15:00:38 CDT Jared Og MD [facility]-43252 Level 3 Est. Patient 10:22:32 CDT Yolande Lindsay MD [facility]-54131 Level 3 Est. Patient 17:12:58 CDT Yolande Lindsay MD [facility] CPT-69686 Level 4 Est. Patient 13:30:58 CDT Yolande Lindsay MD [facility] CPT-69416 Level 4 New Patient 09:02:42 CDT Jared Og MD [facility]-29903 Level 3 Est. Patient 08:19:07 CDT Yolande Lindsay MD [facility]-15411 Level 3 Est. Patient 12:00:13 TALENT MANAGEMENT SPECIALIST Gab Padron MD [facility]-21524 Level 3 Est. Patient 16:15:23 TALENT MANAGEMENT SPECIALIST Yolande Lindsay MD [facility]-97696 Level 2 Est. Patient 19:47:15 CDT Yolande Lindsay MD [facility]-56867 Level 3 Est. Patient 21:38:31 CDT Yolande Lindsay MD [facility]-00006 Level 3 Est. Patient 10:25:12 CDT Adiel PERAZA [facility] CPT-01920 Level 4 Est. Patient 10:51:58 CDT Yolande Lindsay MD [facility]-28723 Level 3 Est. Patient 14:04:55 TALENT MANAGEMENT SPECIALIST Rodrigo Sarah [facility]-91626 Level 3 Est. Patient 10:46:35 TALENT MANAGEMENT SPECIALIST Rodrigo Sarah [facility] CPT-77767 Level 3 Est. Patient 14:24:37 TALENT MANAGEMENT SPECIALIST Yolande Lindsay MD [facility]-19965 Level 3 Est. Patient 17:41:58 TALENT MANAGEMENT SPECIALIST Yolande Lindsay MD [facility]-24779 Level 2 Est. Patient 22:01:41 TALENT MANAGEMENT SPECIALIST Rodrigo Sarah [facility] CPT-92733 Level 2 Est. Patient 22:01:11 TALENT MANAGEMENT SPECIALIST Rodrigo Sarah [facility] CPT-64202 Level 3 Est. Patient 10:12:29 TALENT MANAGEMENT SPECIALIST Rodrigo Sarah [facility]-02404 Level 3 Est. Patient 11:05:44 CDT Alexis Ordaz MD [facility]-38952 Level 3 Est. Patient 14:57:20 CDT Yolande Lindsay MD [facility] CPT-19569 Level 3 Est. Patient 14:40:57 CDT Yolande Lindsay MD PhD [facility] CPT-92604 Level 3 Est. Patient 20:55:40 CDT Yolande Lindsay MD [facility] CPT-30496 Level 3 Est. Patient 12:42:38 TALENT MANAGEMENT SPECIALIST Yolande Lindsay MD [facility] CPT-21708 Level 3 Est. Patient 11:54:49 TALENT MANAGEMENT SPECIALIST Des Hines MD [facility] CPT-64207 Level 3 Est. Patient 17:06:38 CDT Dewayne PERAZA [facility] Procedures Code Procedure Name Date Entry Date Standard Description CPT-30471 Hip, complete, 2-3 views - XRAY USE ONLY 17:19:04 TALENT MANAGEMENT SPECIALIST CPT-87910 Venipuncture Draw Fee 08:37:59 TALENT MANAGEMENT SPECIALIST CPT-26075 Liver Profile - LAB USE ONLY 08:37:59 TALENT MANAGEMENT SPECIALIST CPT-76126 Lipid - LAB USE ONLY 08:37:58 TALENT MANAGEMENT SPECIALIST CPT-96304 First Vx - Ix admin via ID IM or jet injects without counseling by physician 11:52:31 CDT CPT-44641 Fluzone Preservative Free Intramuscular Suspension 11:52 :31 CDT CPT-38139 Foot, left, comp min 3V - XRAY USE ONLY 09:24:54 CDT CPT-26271 Abd single AP View - XRAY USE ONLY 11:16:17 CDT CPT-61099 T spine AP/ Lat - XRAY USE ONLY 09:34:21 CDT CPT-75615 Chest 2V Frontal and Lat - XRAY USE ONLY 10:48:51 CDT CPT-83052 LS spine comp w obliq 13:28:00 TALENT MANAGEMENT SPECIALIST CPT-J1040 Depo Medrol 80 mg (Methyl Prednisolone Acetate) 10:51: 28 TALENT MANAGEMENT SPECIALIST CPT-J1100 Decadron 8mg (Dexamethasone) 10:51:28 TALENT MANAGEMENT SPECIALIST CPT-43709 Abx/Therapy Injection 10:51:28 TALENT MANAGEMENT SPECIALIST CPT-J1100 Decadron 8mg (Dexamethasone) 21:02:30 TALENT MANAGEMENT SPECIALIST CPT-J1040 Depo Medrol 80 mg (Methyl Prednisolone Acetate) 21:02: 30 TALENT MANAGEMENT SPECIALIST [id number] Event Monitor - MC Transmission 09:12:32 CDT 08/06 [id number] Event Monitor - MC review and interp 09:12:32 CDT [id number] Event Monitor - MC recording 09:12:32 CDT CPT-78141 EKG Trac and Interp 16:50:22 CDT CPT-J1030 Depo Medrol 40 mg (Methyl Prednisolone Acetate) 17:05: 54 CDT CPT-J1100 Decadron 4mg (Dexamethasone) 17:05:54 CDT CPT-14118 Abx/Therapy Injection 17:05:54 CDT CPT-J1100 Decadron 4mg (Dexamethasone) 16:55:28 CDT CPT-J1030 Depo Medrol 40 mg (Methyl Prednisolone Acetate) 16:55: 28 CDT CPT-46131 Ankle Complete - Min 3V 15:58:50 CDT CPT-16528 Knee 3V 15:58:50 CDT CPT-09408 Hip comp min 2V 15:58:50 CDT CPT-J2270 Morphine Sulfate 10 mg 14:25:44 TALENT MANAGEMENT SPECIALIST CPT-J2550 Phenergan 12.5 mg (Promethazine) 14:25:44 TALENT MANAGEMENT SPECIALIST CPT-25694 Abx/Therapy Injection 14:25:44 TALENT MANAGEMENT SPECIALIST CPT-J2550 Phenergan 12.5 mg (Promethazine) 14:08:03 TALENT MANAGEMENT SPECIALIST CPT-J2270 Morphine Sulfate 10 mg 14:08:03 TALENT MANAGEMENT SPECIALIST CPT-56883 Bladder Scan 15:00:38 CDT CPT-TCMM Transitional Care Mgmt-Moderate 09:52:22 CDT CPT-J1030 Depo Medrol 40 mg (Methyl Prednisolone Acetate) 10:55: 18 CDT CPT-J1100 Decadron 4mg (Dexamethasone) 10:55:18 CDT CPT-81986 Abx/Therapy Injection 10:55:18 CDT CPT-J1030 Depo Medrol 40 mg (Methyl Prednisolone Acetate) 10:22: 32 CDT CPT-J1100 Decadron 4mg (Dexamethasone) 10:22:32 CDT CPT-64782 Postop F/U Visit 14:37:13 CDT CPT-00807 Ankle Complete - Min 3V 17:11:58 CDT CPT-48164 Foot comp min 3V 17:11:58 CDT CPT-37463 Bladder Scan 09:56:58 CDT CPT-93876 Postop F/U Visit 09:56:58 CDT CPT-19263 Cystoscopy 09:02:42 CDT CPT-53254 Bladder Scan 09:02:42 CDT CPT-65452 Abd single AP View 16:00:35 CDT CPT-64178 Administration single or combination vaccine inc oral 10 :15:43 CDT CPT-24094 Influenza split virus > age 3 10:15:43 CDT CPT-45423 Nail Avulsion 09:24:57 CDT CPT-OV Office Visit 11:15:41 CDT CPT-01668 Abx/Therapy Injection 10:51:30 CDT CPT-J3301 Kenalog 40 mg (Triamcinolone Acetonide) 10:25:12 CDT CPT-J1100 Decadron 4mg (Dexamethasone) 10:25:12 CDT CPT-25657 Anoscopy diagnostic 10:36:12 CDT CPT-OV Office Visit 15:34:31 CDT CPT-42048 Abx/Therapy Injection 08:21:15 [employer]ALENT MANAGEMENT SPECIALIST CPT-J1885 Toradol 60 mg (Ketorolac) 10:46:35 TALENT MANAGEMENT SPECIALIST CPT-OV Office Visit 19:51:16 TALENT MANAGEMENT SPECIALIST CPT-00548 Spec Collection and Handling Fee 14:34:18 TALENT MANAGEMENT SPECIALIST CPT-PV Prev. Care Visit 14:19:18 TALENT MANAGEMENT SPECIALIST CPT-66790 Postop F/U Visit 14:47:51 TALENT MANAGEMENT SPECIALIST CPT-39265 Postop F/U Visit 15:15:14 TALENT MANAGEMENT SPECIALIST CPT-93420 Postop F/U Visit 14:41:43 CDT CPT-75925 Postop F/U Visit 15:47:46 CDT CPT-OV Office Visit 15:27:23 CDT CPT-OV Office Visit 17:20:34 CDT CPT-51280 Abx/Therapy Injection 15:05:57 CDT CPT-J1100 Decadron 8mg (Dexamethasone) 14:44:57 CDT CPT-J1040 Depo Medrol 80 mg (Methyl Prednisolone Acetate) 14:44: 57 CDT CPT-JTINJ Joint Injection 10:17:37 CDT CPT-50530 Administration 2+ single or combination vaccines inc oral 13:01:46 TALENT MANAGEMENT SPECIALIST CPT-80639 Administration single or combination vaccine inc oral 13 :01:46 TALENT MANAGEMENT SPECIALIST CPT-03388 Pneumovax 13:01:46 TALENT MANAGEMENT SPECIALIST CPT-79552 Influenza split virus > age 3 13:01:46 TALENT MANAGEMENT SPECIALIST CPT-24458 Administration single or combination vaccine inc oral 08 :56:49 CDT CPT-16340 Tdap 08:56:49 CDT
--- OUTSIDE RECORDS SUMMARY | 2017-03-22 00:26 | XMS REPORT | Clinical Summary ---
Author Author Admin, MARGRET Organization [employer] Address Unknown Phone Unavailable Allergies, Adverse Reactions, Alerts Allergy Name Reaction Description Start Date Severity Status Provider VALENTIN Critical Active Rodrigo Montemayorl [employer] CHLORHEXIDINE GLUCONATE tongue and gums swollen Critical Active Hoa Kabaford RMA NORFLEX Rash Critical Active Rowenaina Farshadzell [employer] TRAZODONE HCL sees things Critical Active [...] foot Foot pain, right 729.5 Resolved Yolande Lnidsay MD PhD Pain in limb Tick bite [...] infarction, hx of 412 Active Hoa Otto [facility] Old myocardial infarction Pelvic pain 789.09 Active Yolande Lindsay MD PhD Abdominal pain, other specified site; multiple sites Edema 782.3 Active Yolande Lindsay MD PhD Edema Rash 782.1 Active Yolande Lindsay MD PhD Rash and other nonspecific skin eruption Back pain, lumbar 724.2 Active Gab Padron MD Lumbago Cough 786.2 Active Jillina Tyrel [employer] Cough 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 Jillina Frazellilian [employer] 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 Anemia 285.9 Active Gab Padron MD Anemia, unspecified Conjunctivitis 372.30 Active Jillina Tyrel [employer] Conjunctivitis, unspecified Sinusitis 473.9 Active Jillina Frazell [employer] Unspecified sinusitis (chronic) Nonspecific syndrome suggestive of viral illness 079.99 Active Rodrigo Sarah APRN Unspecified viral infection Laryngitis 464.00 Active Jillina Tyrel [employer] Acute laryngitis without mention of obstruction Abdominal [...] 1/2 tab daily for 2 days PREDNISONE 24328002289 No Longer Active Gab Padron MD Active ZOFRAN ODT 4 MG TBDP 1 po q6hr PRN Nausea ONDANSETRON 78994398026 Active Jillina Frazell [employer] Active IBUPROFEN 600 MG TAB 1 tablet by mouth every 6 hours for 7 days, then 1 tablet every 6 hours as needed. Take with food IBUPROFEN 23188382895 Active Jillina Frazell [employer] Active BACTRIM DS 800-160 MG TAB 1 tab by mouth twice daily TRIMETHOPRIM-SULFAMETHOXAZOLE 27067435233 No Longer Active Gab Padron MD Active ADVAIR DISKUS 250-50 MCG/DOSE AEPB 1 puff BID FLUTICASONE- SALMETEROL 26694764315 Active Rodrigo Sarah APRN Active LEVOTHYROXINE SODIUM 75 MCG TABS Take 1 tab daily LEVOTHYROXINE SODIUM 75511638028 No Longer Active Mariana Lermagilma HICKEYA Active SYNTHROID 88 MCG ORAL TABS Take one by mouth daily LEVOTHYROXINE SODIUM 42603298851 Active Gab Padron MD Active CHERATUSSIN AC 100-10 MG/5ML SYRP 1 tsp by mouth every 4 hours as needed for cough GUAIFENESIN-CODEINE 66733659046 No Longer Active Gab Padron MD Active POLYTRIM 47878-0.1 UNIT/ML-% SOLN 1 gtt to affected eye q3h x 7 days POLYMYXIN B-TRIMETHOPRIM 18180428824 No Longer Active Gab Padron MD Active FLUTICASONE PROPIONATE 50 MCG/ACT SUSP 1 to 2 sprays each nostril daily 04/21 FLUTICASONE PROPIONATE 27965545945 No Longer Active Gab Padron MD Active TRILEPTAL 600 MG TABS Take one 1 tablet in Am and 1 tablet at night OXCARBAZEPINE 70609681613 Active Gab Padron MD Active CEFDINIR 300 MG CAPS 1 po BID x 10 days CEFDINIR 73879551456 No Longer Active Rodrigo Sarah APRN Active CEFTIN 500 MG TAB 1 twice a day CEFUROXIME AXETIL 93186375607 No Longer Active Gab Padron MD Active AZITHROMYCIN 250 MG TABS 2 po qd x 1 day, then 1 po qd x 4 days AZITHROMYCIN 28108398383 No Longer Active Rodrigo Sarah APRN Active CLARITIN 10 MG TAB 1 tablet by mouth daily as needed for allergies LORATADINE 33813519686 Active Rodrigo Sarah APRN Active OXYCODONE HCL 5 MG ORAL CAPS 1 TAB PO Q HS OXYCODONE HCL 07029145403 No Longer Active Rodrigo Sarah APRN Active NIASPAN 500 MG ORAL CR-TABS 1 pill nightly x 1 week, then 2 pills nightly x 1 week, then 3 pills nightly x 1 week, then 4 pills nightly NIACIN (ANTIHYPERLIPIDEMIC) 25553938547 No Longer Active Rodrigo Sarah APRN Active NIACIN 500 MG TABS 1 pill by mouth nightly x 1 week, then 2 pills x 1 week, then 3 pills x 1 week, then 4 pills nightly - take after evening meal, with applesauce or an apple NIACIN 55960612647 No Longer Active Yolande Lindsay MD PhD Active FISH OIL 1000 MG CAPS 3 pills daily OMEGA-3 FATTY ACIDS 64752897441 Active Yolande Lindsay MD PhD Active TRIAMCINOLONE ACETONIDE 0.1 % CREA apply bid sparingly to rash TRIAMCINOLONE ACETONIDE 84795751637 Active Yolande Lindsay MD PhD Active FUROSEMIDE 20 MG TAB 1 tablet by mouth daily FUROSEMIDE 05799656363 Active Gab Padron MD Active LISINOPRIL 20 MG ORAL TABS 1 tab by mouth daily LISINOPRIL 71155079659 Active Gab Padron MD Active FUROSEMIDE 20 MG TABS 1 pill by mouth daily, for edema FUROSEMIDE 54972132489 No Longer Active Yolande Lindsay MD PhD Active ATORVASTATIN CALCIUM 10 MG TABS 1 pill by mouth daily, for cholesterol 09/06 ATORVASTATIN CALCIUM 34482082420 Active Gab Padron MD Active CALCIUM 600+D PLUS MINERALS 600-400 MG-UNIT ORAL CHEW 1 tab by mouth daily CALCIUM CARBONATE-VIT D-MIN 20736234372 No Longer Active Yolande Lindsay MD PhD Active CYCLOBENZAPRINE HCL 10 MG TABS 1 tablet by mouth three times daily as needed for muscle spasm/pain CYCLOBENZAPRINE HCL 75762001940 Active Yolande Lindsay MD PhD Active ONDANSETRON 4 MG TBDP 1 q4h PRN nausea ONDANSETRON 81113223772 Active Yolande Lindsay MD PhD Active ADULT ASPIRIN EC LOW STRENGTH 81 MG TBEC Take 1 tablet by mouth daily 2014 ASPIRIN 28331836929 No Longer Active Yolande Lindsay MD PhD Active ZOFRAN ODT 4 MG TBDP 1 pill dissolved by mouth every 4 hours if needed for nausea ONDANSETRON 94852964591 No Longer Active Yolande Lindsay MD PhD Active CEFTIN 500 MG TAB 1 twice a day CEFUROXIME AXETIL 18073702607 No Longer Active Yolande Lindsay MD PhD Active ALBUTEROL SULFATE 0.083 % NEBU SOLN one vial per nebulizer every 4-6 hours as needed ALBUTEROL SULFATE 60166799180 No Longer Active Alexis Ordaz MD Active DOXYCYCLINE HYCLATE 100 MG CAP 1 cap by mouth twice daily DOXYCYCLINE HYCLATE 99471578797 No Longer Active Yolande Lindsay MD PhD Active CYCLOBENZAPRINE HCL 10 MG TABS 1/2 - 1 tab by mouth three times daily if needed for spasms/pain CYCLOBENZAPRINE HCL 30299301564 No Longer Active Yolande Lindsay MD PhD Active AZITHROMYCIN 250 MG TABS 2 pills on day 1, then 1 pill daily x 4 days AZITHROMYCIN 59100857602 No Longer Active Yolande Lindsay MD PhD Active XOPENEX 1.25 MG/3ML NEBU 1 neb every 4 hours if needed for cough/congestion LEVALBUTEROL HCL 51826680928 No Longer Active Yolande Lindsay MD PhD Active DOXYCYCLINE HYCLATE 100 MG TAB 1 tab twice a day for 14 days 2013 DOXYCYCLINE HYCLATE 14219044277 No Longer Active Yolande Lindsay MD PhD Active PREVACID 30 MG CPDR Take 1 tablet by mouth daily-PRN LANSOPRAZOLE 31585645025 No Longer Active Yolande Lindsay MD PhD Active PA VITAMIN D-3 2000 UNIT CAPS 1 CAP PO DAILY CHOLECALCIFEROL 68504574427 No Longer Active Yolande Lindsay MD PhD Active CEFDINIR 300 MG CAPS by mouth twice a day CEFDINIR 83625394457 No Longer Active Gab Padron MD Active TOPAMAX 50 MG TABS 1 PO twice daily TOPIRAMATE 72059016902 Active Yolande Lindsay MD PhD Active AZITHROMYCIN 250 MG TABS 2 po qd x 1 day, then 1 po qd x 4 days AZITHROMYCIN 55484354342 No Longer Active Yolande Lindsay MD PhD Active DICLOFENAC SODIUM 75 MG TBEC 1 tablet by q 12 hours PRN headaches DICLOFENAC SODIUM 13343074336 No Longer Active Yolande Lindsay MD PhD Active FLONASE 50 MCG/ACT SUSP 1 spray each nostril am and hs FLUTICASONE PROPIONATE 60615056264 No Longer Active Todd Callaway MD Active ANUSOL-HC 25 MG SUPPOSITORY 1 rectally twice a day as needed for hemorrhoids HYDROCORTISONE JAYDEN (RECTAL) 47769596845 No Longer Active Yolande Lindsay MD PhD Active ANUSOL-HC 25 MG SUPPOSITORY 1 suppository rectally each evening as needed for anal fissure HYDROCORTISONE JAYDEN (RECTAL) 93295530272 No Longer Active LONNIE Iglesias Active VALIUM 5 MG TAB 1 po 30 minutes prior to your MRI DIAZEPAM 45216305981 No Longer Active LONNIE Iglesias Active METHOCARBAMOL 750 MG TABS 1 PO QID PRN METHOCARBAMOL 27424608058 No Longer Active Daphne Wetzel APRN Active NITROSTAT 0.4 MG SUBL as directed NITROGLYCERIN 82163825867 No Longer Active Jillina Frahossein ZAPATAN Active ROBAXIN-750 750 MG TABS 2 four times a day for 3 days as needed for muscle spasm, then 1 four times a day as needed METHOCARBAMOL 89766306042 No Longer Active Silvestrellina Tyrel ZAPATAN Active HYDROCODONE-ACETAMINOPHEN 5-325 MG TABS 1 q 4-6 hrs prn HYDROCODONE-ACETAMINOPHEN 43996876416 No Longer Active Silvestrellnacho Sarah APRN Active VERAPAMIL HCL CR 180 MG CR-TABS TAKE 1 TAB DAILY VERAPAMIL HCL 27680530071 No Longer Active Yolande Lindsay MD PhD Active BACTRIM DS 800-160 MG TAB 1 tab by mouth twice daily TRIMETHOPRIM-SULFAMETHOXAZOLE 60144022468 No Longer Active Yolande Lindsay MD PhD Active NEXIUM 40 MG PACK 1 by mouth daily ESOMEPRAZOLE MAGNESIUM 53766582226 No Longer Active Des Hines MD Active EPIPEN 2-CHARLETTE 0.3 MG/0.3ML OMARI as need for allergic reaction EPINEPHRINE 01434296368 Active Yolande Lindsay MD PhD Active NEXIUM 40 MG CPDR 1 PO Q D DAY ESOMEPRAZOLE MAGNESIUM 38593317210 No Longer Active Sadia Perry RN Active NEXIUM 40 MG PACK 1 by mouth daily NEXIUM 40 MG PACK ESOMEPRAZOLE MAGNESIUM Inactive VERAPAMIL HCL CR 180 MG CR-TABS TAKE 1 TAB DAILY VERAPAMIL HCL CR 180 MG CR-TABS VERAPAMIL HCL Inactive HYDROCODONE-ACETAMINOPHEN 5-325 MG TABS 1 q 4-6 hrs prn HYDROCODONE-ACETAMINOPHEN 5-325 MG TABS 558412 HYDROCODONE-ACETAMINOPHEN Inactive ROBAXIN-750 750 MG TABS 2 four times a day for 3 days as needed for muscle spasm, then 1 four times a day as needed ROBAXIN-750 750 MG TABS 092018 METHOCARBAMOL Inactive NITROSTAT 0.4 MG SUBL as directed NITROSTAT 0.4 MG SUBL 183356 NITROGLYCERIN Inactive METHOCARBAMOL 750 MG TABS 1 PO QID PRN METHOCARBAMOL 750 MG TABS 088091 METHOCARBAMOL Inactive VALIUM 5 MG TAB 1 po 30 minutes prior to your MRI VALIUM 5 MG TAB 252516 DIAZEPAM Inactive ANUSOL-HC 25 MG SUPPOSITORY 1 suppository rectally each evening as needed for anal fissure ANUSOL-HC 25 MG SUPPOSITORY 5585185 HYDROCORTISONE JAYDEN (RECTAL) Inactive ANUSOL-HC 25 MG SUPPOSITORY 1 rectally twice a day as needed for hemorrhoids ANUSOL-HC 25 MG SUPPOSITORY 0828777 HYDROCORTISONE JAYDEN (RECTAL) Inactive FLONASE 50 MCG/ACT SUSP 1 spray each nostril am and hs FLONASE 50 MCG/ACT SUSP FLUTICASONE PROPIONATE Inactive DICLOFENAC SODIUM 75 MG TBEC 1 tablet by q 12 hours PRN headaches DICLOFENAC SODIUM 75 MG TBEC 061368 DICLOFENAC SODIUM Inactive PA VITAMIN D-3 2000 UNIT CAPS 1 CAP PO DAILY PA VITAMIN D-3 2000 UNIT CAPS CHOLECALCIFEROL Inactive PREVACID 30 MG CPDR Take 1 tablet by mouth daily-PRN PREVACID 30 MG CPDR 054155 LANSOPRAZOLE Inactive DOXYCYCLINE HYCLATE 100 MG TAB 1 tab twice a day for 14 days 2013 DOXYCYCLINE HYCLATE 100 MG TAB 1376994 DOXYCYCLINE HYCLATE Inactive XOPENEX 1.25 MG/3ML NEBU 1 neb every 4 hours if needed for cough/congestion XOPENEX 1.25 MG/3ML NEBU 918993 LEVALBUTEROL HCL Inactive CYCLOBENZAPRINE HCL 10 MG TABS 1/2 - 1 tab by mouth three times daily if needed for spasms/pain CYCLOBENZAPRINE HCL 10 MG TABS 468122 CYCLOBENZAPRINE HCL Inactive ALBUTEROL SULFATE 0.083 % NEBU SOLN one vial per nebulizer every 4-6 hours as needed ALBUTEROL SULFATE 0.083 % NEBU SOLN 505173 ALBUTEROL SULFATE Inactive CEFTIN 500 MG TAB 1 twice a day CEFTIN 500 MG TAB 559952 CEFUROXIME AXETIL Inactive ZOFRAN ODT 4 MG TBDP 1 pill dissolved by mouth every 4 hours if needed for nausea ZOFRAN ODT 4 MG TBDP 526380 ONDANSETRON Inactive ADULT ASPIRIN EC LOW STRENGTH 81 MG TBEC Take 1 tablet by mouth daily 2014 ADULT ASPIRIN EC LOW STRENGTH 81 MG TBEC 851609 ASPIRIN Inactive CALCIUM 600+D PLUS MINERALS 600-400 [...] or an apple NIACIN 500 MG TABS 032983 NIACIN Inactive NIASPAN 500 MG ORAL CR-TABS 1 pill nightly x 1 week, then 2 pills nightly x 1 week, then 3 pills nightly x 1 week, then 4 pills nightly NIASPAN 500 MG ORAL CR-TABS NIACIN (ANTIHYPERLIPIDEMIC) Inactive OXYCODONE HCL 5 MG ORAL CAPS 1 TAB PO Q HS OXYCODONE HCL 5 MG ORAL CAPS 5894418 OXYCODONE HCL Inactive FLUTICASONE PROPIONATE 50 MCG/ACT SUSP 1 to 2 sprays each nostril daily 04/21 FLUTICASONE PROPIONATE 50 MCG/ACT SUSP 1361995 FLUTICASONE PROPIONATE Inactive POLYTRIM 52797-2.1 UNIT/ML-% SOLN 1 gtt to affected eye q3h x 7 days POLYTRIM 26465-2.1 UNIT/ML-% SOLN 077603 POLYMYXIN B- TRIMETHOPRIM Inactive CHERATUSSIN AC 100-10 MG/5ML SYRP 1 tsp by mouth every 4 hours as needed for cough CHERATUSSIN AC 100-10 MG/5ML SYRP 103842 GUAIFENESIN-CODEINE Inactive LEVOTHYROXINE SODIUM 75 MCG TABS Take 1 tab daily LEVOTHYROXINE SODIUM 75 MCG TABS 114845 LEVOTHYROXINE SODIUM Inactive BACTRIM DS 800-160 MG TAB 1 tab by mouth twice daily BACTRIM DS 800-160 MG TAB 19820606 TRIMETHOPRIM-SULFAMETHOXAZOLE Inactive AZITHROMYCIN 250 MG TABS 2 po qd x 1 day, then 1 po qd x 4 days AZITHROMYCIN 250 MG TABS 5212865 AZITHROMYCIN Inactive CEFDINIR 300 MG CAPS by mouth twice a day CEFDINIR 300 MG CAPS 20020708 CEFDINIR Inactive AZITHROMYCIN 250 MG TABS 2 pills on day 1, then 1 pill daily x 4 days AZITHROMYCIN 250 MG TABS 7285070 AZITHROMYCIN Inactive DOXYCYCLINE HYCLATE 100 MG CAP 1 cap by mouth twice daily DOXYCYCLINE HYCLATE 100 MG CAP 9684992 DOXYCYCLINE HYCLATE Inactive FUROSEMIDE 20 MG TABS 1 pill by mouth daily, for edema FUROSEMIDE 20 MG TABS 022735 FUROSEMIDE Inactive AZITHROMYCIN 250 MG TABS 2 po qd x 1 day, then 1 po qd x 4 days AZITHROMYCIN 250 MG TABS 7486815 AZITHROMYCIN Inactive CEFTIN 500 MG TAB 1 twice a day CEFTIN 500 MG TAB 047284 CEFUROXIME AXETIL Inactive CEFDINIR 300 MG CAPS [...] for 2 days PREDNISONE 20 MG TAB 212106 PREDNISONE Inactive Immunizations Vaccine Administration Date Value Standard Description Seasonal influenza vaccine, injectable, containing preservative, for > 3 years old (Afluria, FluLaval, Fluzone, Fluvirin, Fluarix, Agriflu(>=18 yo)) Fluzone (>3 yrs.) [KUC108] Influenza, seasonal, injectable influenza immunization (Flu Vax) has been administered Influenza - Unspecified Formulation [CVX88] influenza virus vaccine, unspecified formulation Seasonal influenza vaccine, injectable, containing preservative, for > 3 years old (Afluria, FluLaval, Fluzone, Fluvirin, Fluarix, Agriflu(>=18 yo)) Fluzone (>3 yrs.) [RMQ037] Influenza, seasonal, injectable pneumococcal immunization administered Pneumovax 23 [CVX33] pneumococcal polysaccharide vaccine, 23 valent dT (Diphtheria and Tetanus) booster given given Td(adult) unspecified formulation Boostrix (Tetanus toxoid, reduced diphtheria toxoid and acellular pertussis vaccine, adsorbed), booster Boostrix [PZS819] tetanus toxoid, reduced diphtheria toxoid, and acellular [...] Panel - Chemistry sodium, serum 142 mmol/L 287-892 5952/06/30 potassium, serum 4.4 mmol/L 3.5-5.2 chloride, serum [...] Rate - Chemistry sodium, serum 139 mmol/L 361-607 4277/03/24 carbon dioxide, venous blood 22.4 mmol/L 21.0-32.0 [...] ... - Chemistry sodium, serum 143 mmol/L 572-392 8922/05/02 carbon dioxide, venous blood 25.6 mmol/L 21.0-32.0 [...] dipstick Negative Negative sodium, serum 142 mmol/L 033-395 2765/07/18 carbon dioxide, venous blood 27.8 mmol/L 21.0-32.0 [...] negative Encounters Code Encounter Date Provider Facility CPT-91194 Level 4 Est. Patient 16:31:27 CDT Gab Padron MD [facility] CPT-13369 Level 2 Est. Patient 12:23:38 CDT Jared Og MD [facility] CPT-59518 Level 3 Est. Patient 11:01:51 CDT Gab Padron MD [facility] CPT-36786 Level 3 Est. Patient 15:27:02 CDT Jared Og MD [facility] CPT-66354 Level 4 Est. Patient 09:25:27 CDT Gab Padron MD [facility] CPT-57097 Level 3 Est. Patient 10:29:41 CDT Rodrigo Sarah [facility] CPT-09735 Level 4 Est. Patient 17:51:05 CDT Gab Padron MD [facility] CPT-86283 Level 3 Est. Patient 14:18:08 CDT Gab Padron MD [facility] CPT-89664 Level 4 Est. Patient 10:18:54 CDT Gab Padron MD [facility] CPT-84986 Level 3 Est. Patient 11:30:07 CDT Rodrigo Sarah [facility] CPT-45874 Level 4 Est. Patient 21:02:30 ECLECTIC DOCTOR Gab Padron MD [facility] CPT-17483 Level 3 Est. Patient 11:02:19 ECLECTIC DOCTOR Gab Padron MD [facility] CPT-77408 Level 4 Est. Patient 22:24:31 ECLECTIC DOCTOR Gab Padron MD [facility] CPT-32503 Level 3 Est. Patient 18:33:46 ECLECTIC DOCTOR Gab Padron MD [facility] CPT-44013 Level 3 Est. Patient 16:19:11 CDT Yolande Lindsay MD [facility]-67318 Level 3 Est. Patient 18:59:14 CDT Yolande Lindsay MD [facility]-09899 Level 4 Est. Patient 21:29:26 CDT Yolande Lindsay MD [facility]-12029 Level 3 Est. Patient 07:37:45 CDT Yolande Lindsay MD [facility]-81429 Level 3 Est. Patient 17:03:46 CDT Yolande Lindsay MD [facility]-06835 Level 4 Est. Patient 20:02:13 ECLECTIC DOCTOR Yolande Lindsay MD [facility]-34502 Level 3 Est. Patient 16:02:07 ECLECTIC DOCTOR Alexis Ordaz MD [facility]-82336 Level 3 Est. Patient 12:41:24 ECLECTIC DOCTOR Yolande Lindsay MD [facility]-00765 Level 3 Est. Patient 15:41:20 ECLECTIC DOCTOR Yolande Lindsay MD [facility]-39496 Level 3 Est. Patient 13:20:02 ECLECTIC DOCTOR Yolande Lindsay MD [facility]-50288 Level 3 Est. Patient 15:00:38 CDT Jared Og MD [facility]-67525 Level 3 Est. Patient 10:22:32 CDT Yolande Lindsay MD [facility]-29566 Level 3 Est. Patient 17:12:58 CDT Yolande Lindsay MD [facility]-12535 Level 4 Est. Patient 13:30:58 CDT Yolande Lindsay MD [facility]-28588 Level 4 New Patient 09:02:42 CDT Jared Og MD [facility]-13532 Level 3 Est. Patient 08:19:07 CDT Yolande Lindsay MD [facility]-18162 Level 3 Est. Patient 12:00:13 ECLECTIC DOCTOR Gab Padron MD [facility]-75233 Level 3 Est. Patient 16:15:23 ECLECTIC DOCTOR Yolande Lindsay MD [facility]21068 Level 2 Est. Patient 19:47:15 CDT Yolande Lindsay MD [facility]-04977 Level 3 Est. Patient 21:38:31 CDT Yolande Lindsay MD [facility]-74132 Level 3 Est. Patient 10:25:12 CDT Adiel PERAZA [facility]-65694 Level 4 Est. Patient 10:51:58 CDT Yolande Lindsay MD [facility]-84647 Level 3 Est. Patient 14:04:55 ECLECTIC DOCTOR Rodrigo Sarah [facility]-94557 Level 3 Est. Patient 10:46:35 ECLECTIC DOCTOR Rodrigo Sarah [facility]-88643 Level 3 Est. Patient 14:24:37 ECLECTIC DOCTOR Yolande Lindsay MD [facility]-23612 Level 3 Est. Patient 17:41:58 ECLECTIC DOCTOR Yolande Lindsay MD [facility]-68309 Level 2 Est. Patient 22:01:41 ECLECTIC DOCTOR Rodrigo Sarah [facility]-88402 Level 2 Est. Patient 22:01:11 ECLECTIC DOCTOR Rodrigo Sarah [facility]-12232 Level 3 Est. Patient 10:12:29 ECLECTIC DOCTOR Rodrigo Sarah [facility]-30527 Level 3 Est. Patient 11:05:44 CDT Alexis Ordaz MD [facility] CPT-99205 Level 3 Est. Patient 14:57:20 CDT Yolande Lindsay MD [facility] CPT-85381 Level 3 Est. Patient 14:40:57 CDT Yolande Lindsay MD [facility] CPT-91330 Level 3 Est. Patient 20:55:40 CDT Yolande Lindsay MD [facility] CPT-58618 Level 3 Est. Patient 12:42:38 ECLECTIC DOCTOR Yolande Lindsay MD [facility]-35091 Level 3 Est. Patient 11:54:49 ECLECTIC DOCTOR Des Hines MD [facility] CPT-70045 Level 3 Est. Patient 17:06:38 CDT Dewayne PERAZA [facility] Procedures Code Procedure Name Date Entry Date Standard Description CPT-87036 First Vx - Ix admin via ID IM or jet injects without counseling by physician 11:52:31 CDT CPT-77166 Fluzone Preservative Free Intramuscular Suspension 11:52 :31 CDT CPT-22224 Foot, left, comp min 3V - XRAY USE ONLY 09:24:54 CDT CPT-79517 Abd single AP View - XRAY USE ONLY 11:16:17 CDT CPT-66533 T spine AP/ Lat - XRAY USE ONLY 09:34:21 CDT CPT-38522 Chest 2V Frontal and Lat - XRAY USE ONLY 10:48:51 CDT CPT-80742 LS spine comp w obliq 13:28:00 ECLECTIC DOCTOR CPT-J1040 Depo Medrol 80 mg (Methyl Prednisolone Acetate) 10:51: 28 ECLECTIC DOCTOR CPT-J1100 Decadron 8mg (Dexamethasone) 10:51:28 ECLECTIC DOCTOR CPT-97891 Abx/Therapy Injection 10:51:28 ECLECTIC DOCTOR CPT-J1100 Decadron 8mg (Dexamethasone) 21:02:30 ECLECTIC DOCTOR CPT-J1040 Depo Medrol 80 mg (Methyl Prednisolone Acetate) 21:02: 30 ECLECTIC DOCTOR [id number] Event Monitor - MC Transmission 09:12:32 CDT 08/06 [id number] Event Monitor - MC review and interp 09:12:32 CDT [id number] Event Monitor - MC recording 09:12:32 CDT CPT-19207 EKG Trac and Interp 16:50:22 CDT CPT-J1030 Depo Medrol 40 mg (Methyl Prednisolone Acetate) 17:05: 54 CDT CPT-J1100 Decadron 4mg (Dexamethasone) 17:05:54 CDT CPT-51544 Abx/Therapy Injection 17:05:54 CDT CPT-J1100 Decadron 4mg (Dexamethasone) 16:55:28 CDT CPT-J1030 Depo Medrol 40 mg (Methyl Prednisolone Acetate) 16:55: 28 CDT CPT-27992 Ankle Complete - Min 3V 15:58:50 CDT CPT-20297 Knee 3V 15:58:50 CDT CPT-27673 Hip comp min 2V 15:58:50 CDT CPT-J2270 Morphine Sulfate 10 mg 14:25:44 ECLECTIC DOCTOR CPT-J2550 Phenergan 12.5 mg (Promethazine) 14:25:44 ECLECTIC DOCTOR CPT-47361 Abx/Therapy Injection 14:25:44 ECLECTIC DOCTOR CPT-J2550 Phenergan 12.5 mg (Promethazine) 14:08:03 ECLECTIC DOCTOR CPT-J2270 Morphine Sulfate 10 mg 14:08:03 ECLECTIC DOCTOR CPT-20036 Bladder Scan 15:00:38 CDT CPT-TCMM Transitional Care Mgmt-Moderate 09:52:22 CDT CPT-J1030 Depo Medrol 40 mg (Methyl Prednisolone Acetate) 10:55: 18 CDT CPT-J1100 Decadron 4mg (Dexamethasone) 10:55:18 CDT CPT-77424 Abx/Therapy Injection 10:55:18 CDT CPT-J1030 Depo Medrol 40 mg (Methyl Prednisolone Acetate) 10:22: 32 CDT CPT-J1100 Decadron 4mg (Dexamethasone) 10:22:32 CDT CPT-47938 Postop F/U Visit 14:37:13 CDT CPT-65451 Ankle Complete - Min 3V 17:11:58 CDT CPT-68076 Foot comp min 3V 17:11:58 CDT CPT-40359 Bladder Scan 09:56:58 CDT CPT-12128 Postop F/U Visit 09:56:58 CDT CPT-17428 Cystoscopy 09:02:42 CDT CPT-83881 Bladder Scan 09:02:42 CDT CPT-43906 Abd single AP View 16:00:35 CDT CPT-38284 Administration single or combination vaccine inc oral 10 :15:43 CDT CPT-27761 Influenza split virus > age 3 10:15:43 CDT CPT-26022 Nail Avulsion 09:24:57 CDT CPT-OV Office Visit 11:15:41 CDT CPT-84628 Abx/Therapy Injection 10:51:30 CDT CPT-J3301 Kenalog 40 mg (Triamcinolone Acetonide) 10:25:12 CDT CPT-J1100 Decadron 4mg (Dexamethasone) 10:25:12 CDT CPT-00034 Anoscopy diagnostic 10:36:12 CDT CPT-OV Office Visit 15:34:31 CDT CPT-18843 Abx/Therapy Injection 08:21:15 ECLECTIC DOCTOR CPT-J1885 Toradol 60 mg (Ketorolac) 10:46:35 ECLECTIC DOCTOR CPT-OV Office Visit 19:51:16 ECLECTIC DOCTOR CPT-95062 Spec Collection and Handling Fee 14:34:18 ECLECTIC DOCTOR CPT-PV Prev. Care Visit 14:19:18 ECLECTIC DOCTOR CPT-66776 Postop F/U Visit 14:47:51 ECLECTIC DOCTOR CPT-81774 Postop F/U Visit 15:15:14 ECLECTIC DOCTOR CPT-41283 Postop F/U Visit 14:41:43 CDT CPT-84589 Postop F/U Visit 15:47:46 CDT CPT-OV Office Visit 15:27:23 CDT CPT-OV Office Visit 17:20:34 CDT CPT-34467 Abx/Therapy Injection 15:05:57 CDT CPT-J1100 Decadron 8mg (Dexamethasone) 14:44:57 CDT CPT-J1040 Depo Medrol 80 mg (Methyl Prednisolone Acetate) 14:44: 57 CDT CPT-JTINJ Joint Injection 10:17:37 CDT CPT-99256 Administration 2+ single or combination vaccines inc oral 13:01:46 ECLECTIC DOCTOR CPT-73262 Administration single or combination vaccine inc oral 13 :01:46 ECLECTIC DOCTOR CPT-26955 Pneumovax 13:01:46 ECLECTIC DOCTOR CPT-01921 Influenza split virus > age 3 13:01:46 ECLECTIC DOCTOR CPT-76833 Administration single or combination vaccine inc oral 08 :56:49 CDT CPT-62506 Tdap 08:56:49 CDT
--- OUTSIDE RECORDS SUMMARY | 2017-03-22 00:28 | XMS REPORT | Clinical Summary ---
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 Inactive Yolande Lindsay MD PhD Muscle spasm, back ICD-724.8 Inactive Yolande Lindsay MD PhD Sinusitis, acute ICD-461.9 Inactive Yolande Lindsay MD PhD Medication List Medication Instructions Start Date Stop Date Generic Name NDC Status Provider Patient Instruction ONDANSETRON 4 MG TBDP 1 q4h PRN nausea ONDANSETRON 85862772662 Active Yolande Lindsay MD PhD Active ADULT ASPIRIN EC LOW STRENGTH 81 MG TBEC Take 1 tablet by mouth daily 2014 ASPIRIN 94523952867 No Longer Active Yolande Lindsay MD PhD Active ZOFRAN ODT 4 MG TBDP 1 pill dissolved by mouth every 4 hours if needed for nausea ONDANSETRON 78854675598 No Longer Active Yolande Lindsay MD PhD Active CEFTIN 500 MG TAB 1 twice a day CEFUROXIME AXETIL 86200786116 No Longer Active Yolande Lindsay MD PhD Active ALBUTEROL SULFATE 0.083 % NEB SOLN one vial per nebulizer every 4-6 hours as needed ALBUTEROL SULFATE 79276269610 No Longer Active Alexis Ordaz MD Active DOXYCYCLINE HYCLATE 100 MG CAP 1 cap by mouth twice daily DOXYCYCLINE HYCLATE 46789592823 No Longer Active Yolande Lindsay MD PhD Active CYCLOBENZAPRINE HCL 10 MG TABS 1/2 - 1 tab by mouth three times daily if needed for spasms/pain CYCLOBENZAPRINE HCL 91358618126 No Longer Active Yolande Lindsay MD PhD Active TRILEPTAL 600 MG TABS Take one 1/2 tablet in Am and 1 tablet at night OXCARBAZEPINE 33981575059 Active Yolande Lindsay MD PhD Active AZITHROMYCIN 250 MG TABS 2 pills on day 1, then 1 pill daily x 4 days AZITHROMYCIN 31160083731 No Longer Active Yolande Lindsay MD PhD Active XOPENEX 1.25 MG/3ML NEBU 1 neb every 4 hours if needed for cough/congestion LEVALBUTEROL HCL 90266517772 No Longer Active Yolande Lindsay MD PhD Active DOXYCYCLINE HYCLATE 100 MG TAB 1 tab twice a day for 14 days 2013 DOXYCYCLINE HYCLATE 94746077492 No Longer Active Yolande Lindsay MD PhD Active LEVOTHYROXINE SODIUM 75 MCG TABS Take 1 tab daily LEVOTHYROXINE SODIUM 01932453241 Active Yolande Lindsay MD PhD Active PREVACID 30 MG CPDR Take 1 tablet by mouth daily-PRN LANSOPRAZOLE 34587516958 No Longer Active Yolande Lindsay MD PhD Active PA VITAMIN D-3 2000 UNIT CAPS 1 CAP PO DAILY CHOLECALCIFEROL 80214816704 No Longer Active Yolande Lindsay MD PhD Active CEFDINIR 300 MG CAPS by mouth twice a day CEFDINIR 09833809618 No Longer Active Gab Padron MD Active TOPAMAX 50 MG TABS 1 PO twice daily TOPIRAMATE 80712321219 Active Yolande Lindsay MD PhD Active AZITHROMYCIN 250 MG TABS 2 po qd x 1 day, then 1 po qd x 4 days AZITHROMYCIN 48974768635 No Longer Active Yolande Lindsay MD PhD Active DICLOFENAC SODIUM 75 MG TBEC 1 tablet by q 12 hours PRN headaches DICLOFENAC SODIUM 78750233181 No Longer Active Yolande Lindsay MD PhD Active FLONASE 50 MCG/ACT SUSP 1 spray each nostril am and hs FLUTICASONE PROPIONATE 43926891150 No Longer Active Todd Callaway MD Active ANUSOL-HC 25 MG SUPPOSITORY 1 rectally twice a day as needed for hemorrhoids HYDROCORTISONE JAYDEN (RECTAL) 14417188334 No Longer Active Yolande Lindsay MD PhD Active ANUSOL-HC 25 MG SUPPOSITORY 1 suppository rectally each evening as needed for anal fissure HYDROCORTISONE JAYDEN (RECTAL) 70328614529 No Longer Active LONNIE Iglesias Active VALIUM 5 MG TAB 1 po 30 minutes prior to your MRI DIAZEPAM 98846533221 No Longer Active LONNIE Iglesias Active METHOCARBAMOL 750 MG TABS 1 PO QID PRN METHOCARBAMOL 99436820883 No Longer Active Daphne Wetezl PUTTY GLAZER Active NITROSTAT 0.4 MG SUBL as directed NITROGLYCERIN 00758034216 No Longer Active Rodrigo Sarah APRN Active ROBAXIN-750 750 MG TABS 2 four times a day for 3 days as needed for muscle spasm, then 1 four times a day as needed METHOCARBAMOL 42156016646 No Longer Active Rodrigo Sarah APRN Active HYDROCODONE-ACETAMINOPHEN 5-325 MG TABS 1 q 4-6 hrs prn HYDROCODONE-ACETAMINOPHEN 69985182107 No Longer Active Silvestrellnacho Sarah APRN Active VERAPAMIL HCL CR 180 MG CR-TABS TAKE 1 TAB DAILY VERAPAMIL HCL 79102937264 No Longer Active Yolande Lindsay MD PhD Active BACTRIM DS 800-160 MG TAB 1 tab by mouth twice daily TRIMETHOPRIM-SULFAMETHOXAZOLE 10185124346 No Longer Active Yolande Lindsay MD PhD Active NEXIUM 40 MG PACK 1 by mouth daily ESOMEPRAZOLE MAGNESIUM 79545314955 No Longer Active Des Hines MD Active EPIPEN 2-CHARLETTE 0.3 MG/0.3ML OMARI as need for allergic reaction EPINEPHRINE 59640341071 Active Yolande Lindsay MD PhD Active LISINOPRIL 10 MG TABS 1 PO Q D FOR BP LISINOPRIL 64805672057 Active Yolande Lindsay MD PhD Active NEXIUM 40 MG CPDR 1 PO Q D DAY ESOMEPRAZOLE MAGNESIUM 44793520835 No Longer Active Sadia Perry RN Active NEXIUM 40 MG PACK 1 by mouth daily NEXIUM 40 MG PACK ESOMEPRAZOLE MAGNESIUM Inactive VERAPAMIL HCL CR 180 MG CR-TABS TAKE 1 TAB DAILY VERAPAMIL HCL CR 180 MG CR-TABS VERAPAMIL HCL Inactive HYDROCODONE-ACETAMINOPHEN 5-325 MG TABS 1 q 4-6 hrs prn HYDROCODONE-ACETAMINOPHEN 5-325 MG TABS 966119 HYDROCODONE-ACETAMINOPHEN Inactive ROBAXIN-750 750 MG TABS 2 four times a day for 3 days as needed for muscle spasm, then 1 four times a day as needed ROBAXIN-750 750 MG TABS 501721 METHOCARBAMOL Inactive NITROSTAT 0.4 MG SUBL as directed NITROSTAT 0.4 MG SUBL NITROGLYCERIN Inactive METHOCARBAMOL 750 MG TABS 1 PO QID PRN METHOCARBAMOL 750 MG TABS 945577 METHOCARBAMOL Inactive VALIUM 5 MG TAB 1 po 30 minutes prior to your MRI VALIUM 5 MG TAB 577971 DIAZEPAM Inactive ANUSOL-HC 25 MG SUPPOSITORY 1 suppository rectally each evening as needed for anal fissure ANUSOL-HC 25 MG SUPPOSITORY 2283476 HYDROCORTISONE JAYDEN (RECTAL) Inactive ANUSOL-HC 25 MG SUPPOSITORY 1 rectally twice a day as needed for hemorrhoids ANUSOL-HC 25 MG SUPPOSITORY 9688834 HYDROCORTISONE JAYDEN (RECTAL) Inactive FLONASE 50 MCG/ACT SUSP 1 spray each nostril am and hs FLONASE 50 MCG/ACT SUSP 307663 FLUTICASONE PROPIONATE Inactive DICLOFENAC SODIUM 75 MG TBEC 1 tablet by q 12 hours PRN headaches DICLOFENAC SODIUM 75 MG TBEC 416636 DICLOFENAC SODIUM Inactive PA VITAMIN D-3 2000 UNIT CAPS 1 CAP PO DAILY PA VITAMIN D-3 2000 UNIT CAPS CHOLECALCIFEROL Inactive PREVACID 30 MG CPDR Take 1 tablet by mouth daily-PRN PREVACID 30 MG CPDR 729422 LANSOPRAZOLE Inactive DOXYCYCLINE HYCLATE 100 MG TAB 1 tab twice a day for 14 days 2013 DOXYCYCLINE HYCLATE 100 MG TAB 958747 DOXYCYCLINE HYCLATE Inactive XOPENEX 1.25 MG/3ML NEBU 1 neb every 4 hours if needed for cough/congestion XOPENEX 1.25 MG/3ML NEBU LEVALBUTEROL HCL Inactive CYCLOBENZAPRINE HCL 10 MG TABS 1/2 - 1 tab by mouth three times daily if needed for spasms/pain CYCLOBENZAPRINE HCL 10 MG TABS 903624 CYCLOBENZAPRINE HCL Inactive ALBUTEROL SULFATE 0.083 % NEBU SOLN one vial per nebulizer every 4-6 hours as needed ALBUTEROL SULFATE 0.083 % NEBU SOLN 273359 ALBUTEROL SULFATE Inactive CEFTIN 500 MG TAB 1 twice a day CEFTIN 500 MG TAB 056810 CEFUROXIME AXETIL Inactive ZOFRAN ODT 4 MG TBDP 1 pill dissolved by mouth every 4 hours if needed for nausea ZOFRAN ODT 4 MG TBDP 650438 ONDANSETRON Inactive ADULT ASPIRIN EC LOW STRENGTH 81 MG TBEC Take 1 tablet by mouth daily 2014 ADULT ASPIRIN EC LOW STRENGTH 81 MG TBEC 495190 ASPIRIN Inactive BACTRIM DS 800-160 MG TAB 1 tab by mouth twice daily BACTRIM DS 800-160 MG TAB TRIMETHOPRIM-SULFAMETHOXAZOLE Inactive AZITHROMYCIN 250 MG TABS 2 po qd x 1 day, then 1 po qd x 4 days AZITHROMYCIN 250 MG TABS 3820459 AZITHROMYCIN Inactive CEFDINIR 300 MG CAPS by mouth twice a day CEFDINIR 300 MG CAPS 138611 CEFDINIR Inactive AZITHROMYCIN 250 MG TABS 2 pills on day 1, then 1 pill daily x 4 days AZITHROMYCIN 250 MG TABS 4854795 AZITHROMYCIN Inactive DOXYCYCLINE HYCLATE 100 MG CAP 1 cap by mouth twice daily DOXYCYCLINE HYCLATE 100 MG CAP 19890510 DOXYCYCLINE HYCLATE Inactive Immunizations Vaccine Administration Date Value Standard Description Seasonal influenza vaccine, injectable, containing preservative, for > 3 years old (Afluria, FluLaval, Fluzone, Fluvirin, Fluarix, Agriflu(>=18 yo)) Fluzone (>3 yrs.) [NAS151] Influenza, seasonal, injectable influenza immunization (Flu Vax) has been administered Influenza - Unspecified Formulation [CVX88] influenza virus vaccine, unspecified formulation pneumococcal immunization administered Pneumovax 23 [CVX33] pneumococcal polysaccharide vaccine, 23 valent Seasonal influenza vaccine, injectable, containing preservative, for > 3 years old (Afluria, FluLaval, Fluzone, Fluvirin, Fluarix, Agriflu(>=18 yo)) Fluzone (>3 yrs.) [OOL262] Influenza, seasonal, injectable dT (Diphtheria and Tetanus) booster given given Td(adult) unspecified formulation Boostrix (Tetanus toxoid, reduced diphtheria toxoid and acellular pertussis vaccine, adsorbed), booster Boostrix [OBU257] tetanus toxoid, reduced diphtheria toxoid, and acellular [...] Value Unit Range Description Lab Report: CBC W/ DIFF, [facility] - Chemistry sodium, serum 141 mmol/L potassium, serum 4.6 mmol/L blood glucose 89 mg/dL creatinine, serum 1.38 mg/dL Lab Report: CBC W/ DIFF, BMP - Hematology leukocyte count, blood 4.4 10*3/mm3 hemoglobin, blood 12.2 g/dL platelet count 185 10*3/mm3 Lab Report: CBC W/DIFF, Basic Metabolic Panel - Chemistry sodium, serum 144 mmol/L 798-535 1633/01/21 potassium, serum 4.2 mmol/L 3.5-5.2 chloride, serum 109 mmol/L 98-107 carbon dioxide, venous blood 23.7 mmol/L 21.0-32.0 blood glucose 75 mg/dL 65-110 calcium, serum 8.4 mg/dL 8.5-10.1 urea nitrogen, blood 22 mg/dL 7-18 creatinine, serum 1.30 mg/dL 0.60-1.30 Lab Report: CBC W/DIFF, Basic Metabolic Panel - Hematology erythrocyte (RBC) count 4.10 10^6/MM^3 10*6/mm3 4.04-5.48 lymphocytes as percent of blood leukocytes 38.7 % 20.5-51.1 monocytes as percent of blood leukocytes 8.3 % 1.7-9.3 neutrophils as percent of blood leukocytes 52.0 % 42.2-75.2 leukocyte count, blood 4.1 10^3/MM^3 10*3/mm3 4.6-10.2 hemoglobin, blood 12.1 g/dL 12.0-16.0 hematocrit, blood 37.3 % 36.0-46.0 mean corpuscular volume, RBC 91 fL 80-97 mean corpuscular hemoglobin, RBC 29.6 pg 27.0-31.2 mean corpuscular hemoglobin concentration, RBC 32.6 G/DL % 31.8- 35.4 red blood cell distribution width 15.6 % 11.6-14.8 platelet count 189 10^3/MM^3 10*3/mm3 142-424 Lab Report: CBC W/DIFF, Comp. Metabolic Panel - Chemistry sodium, serum 144 mmol/L 696-253 9007/12/15 potassium, serum 5.4 mmol/L 3.5-5.2 chloride, serum [...] dipstick Negative Negative sodium, serum 143 mmol/L 125-637 9830/10/24 potassium, serum 3.9 mmol/L 3.5-5.2 chloride, serum [...] 1.020 1.000-1.030 pH, urine, semiquantitative 6.0 5.0-8.5 Office Visit: Followup cystoscopy and sling - Chemistry protein, total urine random negative mg/dL RBC, urine, dipstick negative Office Visit: Followup cystoscopy and sling - Urinalysis ketones, urine, by test strip negative bilirubin, urine negative glucose, urine, semiquantitative negative pH, urine, semiquantitative 6 specific gravity, urine 1.010 urinalysis, routine Clean Catch urine color yellow appearance, urine clear leukocyte esterase, urine, by dipstick negative nitrite, urine, semiquantitative negative urobilinogen, urine, semiquantitative (dipstick) negative protein, urine, semiquantitative (dipstick) negative Encounters Code Encounter Date Provider Facility CPT-00610 Level 3 Est. Patient 17:03:46 CDT Yolande Lindsay MD PhD [facility] CPT-13755 Level 4 Est. Patient 20:02:13 BIZTALK ARCHITECT Yolande Lindsay MD PhD [facility] CPT-93513 Level 3 Est. Patient 16:02:07 BIZTALK ARCHITECT Alexis Ordaz MD [facility] CPT-09560 Level 3 Est. Patient 12:41:24 BIZTALK ARCHITECT Yolande Lindsay MD PhD [facility] CPT-68584 Level 3 Est. Patient 15:41:20 BIZTALK ARCHITECT Yolande Lindsay MD PhD [facility] CPT-65099 Level 3 Est. Patient 13:20:02 BIZTALK ARCHITECT Yolande Lindsay MD PhD [facility] CPT-03920 Level 3 Est. Patient 15:00:38 CDT Jared Og MD [facility]-08264 Level 3 Est. Patient 10:22:32 CDT Yolande Lindsay MD [facility] CPT-97019 Level 3 Est. Patient 17:12:58 CDT Yolande Lindsay MD [facility]-88911 Level 4 Est. Patient 13:30:58 CDT Yolande Lindsay MD [facility] CPT-82712 Level 4 New Patient 09:02:42 CDT Jared Og MD [facility]-79427 Level 3 Est. Patient 08:19:07 CDT Yolande Lindsay MD [facility]-92377 Level 3 Est. Patient 12:00:13 BIZTALK ARCHITECT Gab Padron MD [facility]-75645 Level 3 Est. Patient 16:15:23 BIZTALK ARCHITECT Yolande Lindsay MD [facility]-00225 Level 2 Est. Patient 19:47:15 CDT Yolande Lindsay MD [facility]-68170 Level 3 Est. Patient 21:38:31 CDT Yolande Lindsay MD [facility]-44208 Level 3 Est. Patient 10:25:12 CDT Adiel PERAZA [facility] CPT-90724 Level 4 Est. Patient 10:51:58 CDT Yolande Lindsay MD [facility]-83686 Level 3 Est. Patient 14:04:55 BIZTALK ARCHITECT Rodrigo Sarah [facility]-49585 Level 3 Est. Patient 10:46:35 BIZTALK ARCHITECT Rodrigo Sarah [facility]-65336 Level 3 Est. Patient 14:24:37 BIZTALK ARCHITECT Yolande Lindsay MD [facility]-86963 Level 3 Est. Patient 17:41:58 BIZTALK ARCHITECT Yolande Lindsay MD [facility] CPT-56806 Level 2 Est. Patient 22:01:41 BIZTALK ARCHITECT Rodrigo Sarah [facility] CPT-84466 Level 2 Est. Patient 22:01:11 BIZTALK ARCHITECT Rodrigo Sarah [facility] CPT-67052 Level 3 Est. Patient 10:12:29 BIZTALK ARCHITECT Rodrigo Sarah [facility] CPT-42268 Level 3 Est. Patient 11:05:44 CDT Alexis Ordaz MD [facility] CPT-36587 Level 3 Est. Patient 14:57:20 CDT Yolande Lindsay MD [facility] CPT-49622 Level 3 Est. Patient 14:40:57 CDT Yolande Lindsay MD [facility] CPT-44985 Level 3 Est. Patient 20:55:40 CDT Yolande Lindsay MD [facility] CPT-25344 Level 3 Est. Patient 12:42:38 BIZTALK ARCHITECT Yolande Lindsay MD [facility] [address] [facility] CPT-97865 Level 3 Est. Patient 11:54:49 BIZTALK ARCHITECT Des Hines MD [facility] CPT-63899 Level 3 Est. Patient 17:06:38 CDT Dewayne PERAZA [facility] Procedures Code Procedure Name Date Entry Date Standard Description CPT-J1030 Depo Medrol 40 mg (Methyl Prednisolone Acetate) 17:05: 54 CDT CPT-J1100 Decadron 4mg (Dexamethasone) 17:05:54 CDT CPT-21624 Abx/Therapy Injection 17:05:54 CDT CPT-J1100 Decadron 4mg (Dexamethasone) 16:55:28 CDT CPT-J1030 Depo Medrol 40 mg (Methyl Prednisolone Acetate) 16:55: 28 CDT CPT-95611 Ankle Complete - Min 3V 15:58:50 CDT CPT-40289 Knee 3V 15:58:50 CDT CPT-67263 Hip comp min 2V 15:58:50 CDT CPT-J2270 Morphine Sulfate 10 mg 14:25:44 BIZTALK ARCHITECT CPT-J2550 Phenergan 12.5 mg (Promethazine) 14:25:44 BIZTALK ARCHITECT CPT-95648 Abx/Therapy Injection 14:25:44 BIZTALK ARCHITECT CPT-J2550 Phenergan 12.5 mg (Promethazine) 14:08:03 BIZTALK ARCHITECT CPT-J2270 Morphine Sulfate 10 mg 14:08:03 BIZTALK ARCHITECT CPT-90005 Bladder Scan 15:00:38 CDT CPT-TCMM Transitional Care Mgmt-Moderate 09:52:22 CDT CPT-J1030 Depo Medrol 40 mg (Methyl Prednisolone Acetate) 10:55: 18 CDT CPT-J1100 Decadron 4mg (Dexamethasone) 10:55:18 CDT CPT-18704 Abx/Therapy Injection 10:55:18 CDT CPT-J1030 Depo Medrol 40 mg (Methyl Prednisolone Acetate) 10:22: 32 CDT CPT-J1100 Decadron 4mg (Dexamethasone) 10:22:32 CDT CPT-19596 Postop F/U Visit 14:37:13 CDT CPT-12364 Ankle Complete - Min 3V 17:11:58 CDT CPT-28981 Foot comp min 3V 17:11:58 CDT CPT-93807 Bladder Scan 09:56:58 CDT CPT-62785 Postop F/U Visit 09:56:58 CDT CPT-89875 Cystoscopy 09:02:42 CDT CPT-57577 Bladder Scan 09:02:42 CDT CPT-76564 Abd single AP View 16:00:35 CDT CPT-73653 Administration single or combination vaccine inc oral 10 :15:43 CDT CPT-34948 Influenza split virus > age 3 10:15:43 CDT CPT-72590 Nail Avulsion 09:24:57 CDT CPT-OV Office Visit 11:15:41 CDT CPT-18628 Abx/Therapy Injection 10:51:30 CDT CPT-J3301 Kenalog 40 mg (Triamcinolone Acetonide) 10:25:12 CDT CPT-J1100 Decadron 4mg (Dexamethasone) 10:25:12 CDT CPT-26466 Anoscopy diagnostic 10:36:12 CDT CPT-OV Office Visit 15:34:31 CDT CPT-75126 Abx/Therapy Injection 08:21:15 BIZTALK ARCHITECT CPT-J1885 Toradol 60 mg (Ketorolac) 10:46:35 BIZTALK ARCHITECT CPT-OV Office Visit 19:51:16 BIZTALK ARCHITECT CPT-33471 Spec Collection and Handling Fee 14:34:18 BIZTALK ARCHITECT CPT-PV Prev. Care Visit 14:19:18 BIZTALK ARCHITECT CPT-59141 Postop F/U Visit 14:47:51 BIZTALK ARCHITECT CPT-12539 Postop F/U Visit 15:15:14 BIZTALK ARCHITECT CPT-94501 Postop F/U Visit 14:41:43 CDT CPT-64767 Postop F/U Visit 15:47:46 CDT CPT-OV Office Visit 15:27:23 CDT CPT-OV Office Visit 17:20:34 CDT CPT-75537 Abx/Therapy Injection 15:05:57 CDT CPT-J1100 Decadron 8mg (Dexamethasone) 14:44:57 CDT CPT-J1040 Depo Medrol 80 mg (Methyl Prednisolone Acetate) 14:44: 57 CDT CPT-JTINJ Joint Injection 10:17:37 CDT CPT-87603 Administration 2+ single or combination vaccines inc oral 13:01:46 BIZTALK ARCHITECT CPT-69414 Administration single or combination vaccine inc oral 13 :01:46 BIZTALK ARCHITECT CPT-70212 Pneumovax 13:01:46 BIZTALK ARCHITECT CPT-85408 Influenza split virus > age 3 13:01:46 BIZTALK ARCHITECT CPT-35301 Administration single or combination vaccine inc oral 08 :56:49 CDT CPT-09114 Tdap 08:56:49 CDT
--- OUTSIDE RECORDS SUMMARY | 2017-03-22 00:31 | XMS REPORT | Clinical Summary ---
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 Jillina Frazellilian ZAPATAN 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 Anemia 285.9 Active Gab Padron MD Anemia, unspecified Conjunctivitis 372.30 Active Jillnacho Sarah APRN Conjunctivitis, unspecified Sinusitis 473.9 Active Jillina Frazell SCRAP SHEAR OPERATOR Unspecified sinusitis (chronic) Nonspecific syndrome suggestive of viral illness 079.99 Active Jillina Siml SCRAP SHEAR OPERATOR Unspecified viral infection Laryngitis 464.00 Active Jillina Farshadzell SCRAP SHEAR OPERATOR Acute laryngitis without mention of obstruction [...] Abdominal pain, generalized 789.07 Active Silvestrellina Siml SCRAP SHEAR OPERATOR Abdominal pain, generalized Back pain, thoracic region, left 724.1 Active Jillina Farshadzell SCRAP SHEAR OPERATOR Pain in thoracic spine Abdominal pain, [...] Lindsay MD PhD UTI ICD-599.0 Inactive Yolande Lidnsay MD PhD OTHER SCREENING MAMMOGRAM ICD-V76.12 Inactive [...] 1/2 tab daily for 2 days PREDNISONE 53182300228 No Longer Active Gab Padron MD Active ZOFRAN ODT 4 MG TBDP 1 po q6hr PRN Nausea ONDANSETRON 20814286431 Active Rodrigo Sarah SCRAP SHEAR OPERATOR Active IBUPROFEN 600 MG TAB 1 tablet by mouth every 6 hours for 7 days, then 1 tablet every 6 hours as needed. Take with food IBUPROFEN 08582262134 Active Rodrigo Sarah APRN Active BACTRIM DS 800-160 MG TAB 1 tab by mouth twice daily TRIMETHOPRIM-SULFAMETHOXAZOLE 79305120022 No Longer Active Gab Padron MD Active ADVAIR DISKUS 250-50 MCG/DOSE AEPB 1 puff BID FLUTICASONE- SALMETEROL 51616301099 Active Rodrigo Sarah APRN Active LEVOTHYROXINE SODIUM 75 MCG TABS Take 1 tab daily LEVOTHYROXINE SODIUM 27275573242 No Longer Active Mariana Cuadra RMA Active SYNTHROID 88 MCG ORAL TABS Take one by mouth daily LEVOTHYROXINE SODIUM 74202391223 Active Tisha Lambert APRN Active CHERATUSSIN AC 100-10 MG/5ML SYRP 1 tsp by mouth every 4 hours as needed for cough GUAIFENESIN-CODEINE 74513860406 No Longer Active Gab Padron MD Active POLYTRIM 12936-2.1 UNIT/ML-% SOLN 1 gtt to affected eye q3h x 7 days POLYMYXIN B-TRIMETHOPRIM 56739136646 No Longer Active Gab Padron MD Active FLUTICASONE PROPIONATE 50 MCG/ACT SUSP 1 to 2 sprays each nostril daily 04/21 FLUTICASONE PROPIONATE 27121872155 No Longer Active Gab Padron MD Active TRILEPTAL 600 MG TABS Take one 1 tablet in Am and 1 tablet at night OXCARBAZEPINE 16979552395 Active Gab Padron MD Active CEFDINIR 300 MG CAPS 1 po BID x 10 days CEFDINIR 16813108142 No Longer Active Rodrigo Sarah APRN Active CEFTIN 500 MG TAB 1 twice a day CEFUROXIME AXETIL 48035659152 No Longer Active Gab Padron MD Active AZITHROMYCIN 250 MG TABS 2 po qd x 1 day, then 1 po qd x 4 days AZITHROMYCIN 79195036266 No Longer Active Rodrigo Sarah APRN Active CLARITIN 10 MG TAB 1 tablet by mouth daily as needed for allergies LORATADINE 79117502565 Active Rodrigo Sarah APRN Active OXYCODONE HCL 5 MG ORAL CAPS 1 TAB PO Q HS OXYCODONE HCL 14582737379 No Longer Active Rodrigo Sarah APRN Active NIASPAN 500 MG ORAL CR-TABS 1 pill nightly x 1 week, then 2 pills nightly x 1 week, then 3 pills nightly x 1 week, then 4 pills nightly NIACIN (ANTIHYPERLIPIDEMIC) 76193930685 No Longer Active Rodrigo Sarah APRN Active NIACIN 500 MG TABS 1 pill by mouth nightly x 1 week, then 2 pills x 1 week, then 3 pills x 1 week, then 4 pills nightly - take after evening meal, with applesauce or an apple NIACIN 75021569775 No Longer Active Yolande Lindsay MD PhD Active FISH OIL 1000 MG CAPS 3 pills daily OMEGA-3 FATTY ACIDS 35685591981 Active Yolande Lindsay MD PhD Active TRIAMCINOLONE ACETONIDE 0.1 % CREA apply bid sparingly to rash TRIAMCINOLONE ACETONIDE 62287377692 Active Yolande Lindsay MD PhD Active FUROSEMIDE 20 MG TAB 1 tablet by mouth daily FUROSEMIDE 97803016448 Active Tisha Lambert APRN Active LISINOPRIL 20 MG ORAL TABS 1 tab by mouth daily LISINOPRIL 91812672780 Active Tisha Lambert APRN Active FUROSEMIDE 20 MG TABS 1 pill by mouth daily, for edema FUROSEMIDE 71198685783 No Longer Active Yolande Lindsay MD PhD Active ATORVASTATIN CALCIUM 10 MG TABS 1 pill by mouth daily, for cholesterol 09/06 ATORVASTATIN CALCIUM 13817421725 Active Tisha Lambert APRN Active CALCIUM 600+D PLUS MINERALS 600-400 MG-UNIT ORAL CHEW 1 tab by mouth daily CALCIUM CARBONATE-VIT D-MIN 69596858857 No Longer Active Yolande Lindsay MD PhD Active CYCLOBENZAPRINE HCL 10 MG TABS 1 tablet by mouth three times daily as needed for muscle spasm/pain CYCLOBENZAPRINE HCL 38530281537 Active Yolande Lindsay MD PhD Active ONDANSETRON 4 MG TBDP 1 q4h PRN nausea ONDANSETRON 81933739850 Active Yolande Lindsay MD PhD Active ADULT ASPIRIN EC LOW STRENGTH 81 MG TBEC Take 1 tablet by mouth daily 2014 ASPIRIN 46555978775 No Longer Active Yolande Lindsay MD PhD Active ZOFRAN ODT 4 MG TBDP 1 pill dissolved by mouth every 4 hours if needed for nausea ONDANSETRON 75536345222 No Longer Active Yolande Lindsay MD PhD Active CEFTIN 500 MG TAB 1 twice a day CEFUROXIME AXETIL 92658126038 No Longer Active Yolande Lindsay MD PhD Active ALBUTEROL SULFATE 0.083 % NEBU SOLN one vial per nebulizer every 4-6 hours as needed ALBUTEROL SULFATE 71287224651 No Longer Active Alexis Ordaz MD Active DOXYCYCLINE HYCLATE 100 MG CAP 1 cap by mouth twice daily DOXYCYCLINE HYCLATE 82687870739 No Longer Active Yolande Linsday MD PhD Active CYCLOBENZAPRINE HCL 10 MG TABS 1/2 - 1 tab by mouth three times daily if needed for spasms/pain CYCLOBENZAPRINE HCL 09547286372 No Longer Active Yolande Lindsay MD PhD Active AZITHROMYCIN 250 MG TABS 2 pills on day 1, then 1 pill daily x 4 days AZITHROMYCIN 58009165820 No Longer Active Yolande Lindsay MD PhD Active XOPENEX 1.25 MG/3ML NEBU 1 neb every 4 hours if needed for cough/congestion LEVALBUTEROL HCL 04188817306 No Longer Active Yolande Lindsay MD PhD Active DOXYCYCLINE HYCLATE 100 MG TAB 1 tab twice a day for 14 days 2013 DOXYCYCLINE HYCLATE 58322492846 No Longer Active Yolande Lindsay MD PhD Active PREVACID 30 MG CPDR Take 1 tablet by mouth daily-PRN LANSOPRAZOLE 06169274301 No Longer Active Yolande Lindsay MD PhD Active PA VITAMIN D-3 2000 UNIT CAPS 1 CAP PO DAILY CHOLECALCIFEROL 65889190827 No Longer Active Yolande Lindsay MD PhD Active CEFDINIR 300 MG CAPS by mouth twice a day CEFDINIR 32793839841 No Longer Active Gab Padron MD Active TOPAMAX 50 MG TABS 1 PO twice daily TOPIRAMATE 54068104338 Active Yolande Lindsay MD PhD Active AZITHROMYCIN 250 MG TABS 2 po qd x 1 day, then 1 po qd x 4 days AZITHROMYCIN 48256350727 No Longer Active Yolande Lindsay MD PhD Active DICLOFENAC SODIUM 75 MG TBEC 1 tablet by q 12 hours PRN headaches DICLOFENAC SODIUM 12260692262 No Longer Active Yolande Lindsay MD PhD Active FLONASE 50 MCG/ACT SUSP 1 spray each nostril am and hs FLUTICASONE PROPIONATE 15006700532 No Longer Active Todd Callaway MD Active ANUSOL-HC 25 MG SUPPOSITORY 1 rectally twice a day as needed for hemorrhoids HYDROCORTISONE JAYDEN (RECTAL) 44553959831 No Longer Active Yolande Lindsay MD PhD Active ANUSOL-HC 25 MG SUPPOSITORY 1 suppository rectally each evening as needed for anal fissure HYDROCORTISONE JAYDEN (RECTAL) 88223307040 No Longer Active LONNIE Iglesias Active VALIUM 5 MG TAB 1 po 30 minutes prior to your MRI DIAZEPAM 80351120849 No Longer Active LONNIE Iglesias Active METHOCARBAMOL 750 MG TABS 1 PO QID PRN METHOCARBAMOL 42874510094 No Longer Active Daphne Wetzel APRN Active NITROSTAT 0.4 MG SUBL as directed NITROGLYCERIN 27253270277 No Longer Active Silvestrellina Frazellilian GAUTAM Active ROBAXIN-750 750 MG TABS 2 four times a day for 3 days as needed for muscle spasm, then 1 four times a day as needed METHOCARBAMOL 66015215871 No Longer Active Jillina Frazellilian SCRAP SHEAR OPERATOR Active HYDROCODONE-ACETAMINOPHEN 5-325 MG TABS 1 q 4-6 hrs prn HYDROCODONE-ACETAMINOPHEN 33727930065 No Longer Active Jillina Frahossein ZAPATAN Active VERAPAMIL HCL CR 180 MG CR-TABS TAKE 1 TAB DAILY VERAPAMIL HCL 29691567015 No Longer Active Yolande Lindsay MD PhD Active BACTRIM DS 800-160 MG TAB 1 tab by mouth twice daily TRIMETHOPRIM-SULFAMETHOXAZOLE 23378545924 No Longer Active Yolande Lindsay MD PhD Active NEXIUM 40 MG PACK 1 by mouth daily ESOMEPRAZOLE MAGNESIUM 27265321214 No Longer Active eDs Hines MD Active EPIPEN 2-CHARLETTE 0.3 MG/0.3ML OMARI as need for allergic reaction EPINEPHRINE 38949444157 Active Yolande Lindsay MD PhD Active NEXIUM 40 MG CPDR 1 PO Q D DAY ESOMEPRAZOLE MAGNESIUM 82352510008 No Longer Active Sadia Perry RN Active NEXIUM 40 MG PACK 1 by mouth daily NEXIUM 40 MG PACK ESOMEPRAZOLE MAGNESIUM Inactive VERAPAMIL HCL CR 180 MG CR-TABS TAKE 1 TAB DAILY VERAPAMIL HCL CR 180 MG CR-TABS VERAPAMIL HCL Inactive HYDROCODONE-ACETAMINOPHEN 5-325 MG TABS 1 q 4-6 hrs prn HYDROCODONE-ACETAMINOPHEN 5-325 MG TABS 868339 HYDROCODONE-ACETAMINOPHEN Inactive ROBAXIN-750 750 MG TABS 2 four times a day for 3 days as needed for muscle spasm, then 1 four times a day as needed ROBAXIN-750 750 MG TABS 056224 METHOCARBAMOL Inactive NITROSTAT 0.4 MG SUBL as directed NITROSTAT 0.4 MG SUBL 738347 NITROGLYCERIN Inactive METHOCARBAMOL 750 MG TABS 1 PO QID PRN METHOCARBAMOL 750 MG TABS 412912 METHOCARBAMOL Inactive VALIUM 5 MG TAB 1 po 30 minutes prior to your MRI VALIUM 5 MG TAB 528715 DIAZEPAM Inactive ANUSOL-HC 25 MG SUPPOSITORY 1 suppository rectally each evening as needed for anal fissure ANUSOL-HC 25 MG SUPPOSITORY 7348271 HYDROCORTISONE JAYDEN (RECTAL) Inactive ANUSOL-HC 25 MG SUPPOSITORY 1 rectally twice a day as needed for hemorrhoids ANUSOL-HC 25 MG SUPPOSITORY 1100251 HYDROCORTISONE JAYDEN (RECTAL) Inactive FLONASE 50 MCG/ACT SUSP 1 spray each nostril am and hs FLONASE 50 MCG/ACT SUSP FLUTICASONE PROPIONATE Inactive DICLOFENAC SODIUM 75 MG TBEC 1 tablet by q 12 hours PRN headaches DICLOFENAC SODIUM 75 MG TBEC 663815 DICLOFENAC SODIUM Inactive PA VITAMIN D-3 2000 UNIT CAPS 1 CAP PO DAILY PA VITAMIN D-3 2000 UNIT CAPS CHOLECALCIFEROL Inactive PREVACID 30 MG CPDR Take 1 tablet by mouth daily-PRN PREVACID 30 MG CPDR 231255 LANSOPRAZOLE Inactive DOXYCYCLINE HYCLATE 100 MG TAB 1 tab twice a day for 14 days 2013 DOXYCYCLINE HYCLATE 100 MG TAB 3474594 DOXYCYCLINE HYCLATE Inactive XOPENEX 1.25 MG/3ML NEBU 1 neb every 4 hours if needed for cough/congestion XOPENEX 1.25 MG/3ML NEBU 153748 LEVALBUTEROL HCL Inactive CYCLOBENZAPRINE HCL 10 MG TABS 1/2 - 1 tab by mouth three times daily if needed for spasms/pain CYCLOBENZAPRINE HCL 10 MG TABS 842895 CYCLOBENZAPRINE HCL Inactive ALBUTEROL SULFATE 0.083 % NEBU SOLN one vial per nebulizer every 4-6 hours as needed ALBUTEROL SULFATE 0.083 % NEBU SOLN 026027 ALBUTEROL SULFATE Inactive CEFTIN 500 MG TAB 1 twice a day CEFTIN 500 MG TAB 152042 CEFUROXIME AXETIL Inactive ZOFRAN ODT 4 MG TBDP 1 pill dissolved by mouth every 4 hours if needed for nausea ZOFRAN ODT 4 MG TBDP 992875 ONDANSETRON Inactive ADULT ASPIRIN EC LOW STRENGTH 81 MG TBEC Take 1 tablet by mouth daily 2014 ADULT ASPIRIN EC LOW STRENGTH 81 MG TBEC 119068 ASPIRIN Inactive CALCIUM 600+D PLUS MINERALS 600-400 [...] or an apple NIACIN 500 MG TABS 452777 NIACIN Inactive NIASPAN 500 MG ORAL CR-TABS 1 pill nightly x 1 week, then 2 pills nightly x 1 week, then 3 pills nightly x 1 week, then 4 pills nightly NIASPAN 500 MG ORAL CR-TABS NIACIN (ANTIHYPERLIPIDEMIC) Inactive OXYCODONE HCL 5 MG ORAL CAPS 1 TAB PO Q HS OXYCODONE HCL 5 MG ORAL CAPS 5309253 OXYCODONE HCL Inactive FLUTICASONE PROPIONATE 50 MCG/ACT SUSP 1 to 2 sprays each nostril daily 04/21 FLUTICASONE PROPIONATE 50 MCG/ACT SUSP 0451687 FLUTICASONE PROPIONATE Inactive POLYTRIM 45348-2.1 UNIT/ML-% SOLN 1 gtt to affected eye q3h x 7 days POLYTRIM 76709-9.1 UNIT/ML-% SOLN 835476 POLYMYXIN B- TRIMETHOPRIM Inactive CHERATUSSIN AC 100-10 MG/5ML SYRP 1 tsp by mouth every 4 hours as needed for cough CHERATUSSIN AC 100-10 MG/5ML SYRP 416922 GUAIFENESIN-CODEINE Inactive LEVOTHYROXINE SODIUM 75 MCG TABS Take 1 tab daily LEVOTHYROXINE SODIUM 75 MCG TABS 898245 LEVOTHYROXINE SODIUM Inactive BACTRIM DS 800-160 MG TAB 1 tab by mouth twice daily BACTRIM DS 800-160 MG TAB 19820606 TRIMETHOPRIM-SULFAMETHOXAZOLE Inactive AZITHROMYCIN 250 MG TABS 2 po qd x 1 day, then 1 po qd x 4 days AZITHROMYCIN 250 MG TABS 3762024 AZITHROMYCIN Inactive CEFDINIR 300 MG CAPS by mouth twice a day CEFDINIR 300 MG CAPS 20020708 CEFDINIR Inactive AZITHROMYCIN 250 MG TABS 2 pills on day 1, then 1 pill daily x 4 days AZITHROMYCIN 250 MG TABS 3137047 AZITHROMYCIN Inactive DOXYCYCLINE HYCLATE 100 MG CAP 1 cap by mouth twice daily DOXYCYCLINE HYCLATE 100 MG CAP 5155404 DOXYCYCLINE HYCLATE Inactive FUROSEMIDE 20 MG TABS 1 pill by mouth daily, for edema FUROSEMIDE 20 MG TABS 948180 FUROSEMIDE Inactive AZITHROMYCIN 250 MG TABS 2 po qd x 1 day, then 1 po qd x 4 days AZITHROMYCIN 250 MG TABS 4282549 AZITHROMYCIN Inactive CEFTIN 500 MG TAB 1 twice a day CEFTIN 500 MG TAB 383350 CEFUROXIME AXETIL Inactive CEFDINIR 300 MG CAPS [...] for 2 days PREDNISONE 20 MG TAB 908402 PREDNISONE Inactive Immunizations Vaccine Administration Date Value Standard Description Seasonal influenza vaccine, injectable, containing preservative, for > 3 years old (Afluria, FluLaval, Fluzone, Fluvirin, Fluarix, Agriflu(>=18 yo)) Fluzone (>3 yrs.) [[id number]] Influenza, seasonal, injectable influenza immunization (Flu Vax) has been administered Influenza - Unspecified Formulation [CVX88] influenza virus vaccine, unspecified formulation Seasonal influenza vaccine, injectable, containing preservative, for > 3 years old (Afluria, FluLaval, Fluzone, Fluvirin, Fluarix, Agriflu(>=18 yo)) Fluzone (>3 yrs.) [[id number]] Influenza, seasonal, injectable pneumococcal immunization administered Pneumovax 23 [CVX33] pneumococcal polysaccharide vaccine, 23 valent dT (Diphtheria and Tetanus) booster given given Td(adult) unspecified formulation Boostrix (Tetanus toxoid, reduced diphtheria toxoid and acellular pertussis vaccine, adsorbed), booster Boostrix [PDG609] tetanus toxoid, reduced diphtheria toxoid, and acellular [...] Panel - Chemistry sodium, serum 142 mmol/L 922-944 2175/06/30 potassium, serum 4.4 mmol/L 3.5-5.2 chloride, serum [...] Rate - Chemistry sodium, serum 139 mmol/L 370-544 7694/03/24 carbon dioxide, venous blood 22.4 mmol/L 21.0-32.0 [...] ... - Chemistry sodium, serum 143 mmol/L 138-452 2073/05/02 carbon dioxide, venous blood 25.6 mmol/L 21.0-32.0 [...] PANEL - Chemistry cholesterol, serum 166 mg/dL 044-322 8092/12/06 triglyceride, serum, fasting 86 mg/dL 30-200 HDL [...] dipstick Negative Negative sodium, serum 142 mmol/L 596-072 9344/07/18 carbon dioxide, venous blood 27.8 mmol/L 21.0-32.0 [...] 40 mg/dL triglyceride, target level 150 mg/dL HDL cholesterol, serum, target level 40 mg/dL triglyceride, target level 150 mg/dL cholesterol, target level 200 mg/dL cholesterol, target level 200 mg/dL Office [...] negative Encounters Code Encounter Date Provider Facility CPT-05183 Level 4 Est. Patient 19:55:18 GREIGE MENDER Jared Og MD [facility] CPT-24163 Level 3 Est. Patient 20:13:34 GREIGE MENDER Jared Og MD [facility] CPT-16927 Level 4 Est. Patient 16:31:27 CDT Gab Padron MD [facility] CPT-40335 Level 2 Est. Patient 12:23:38 CDT Jared Og MD [facility] CPT-94667 Level 3 Est. Patient 11:01:51 CDT Gab Padron MD [facility] CPT-58556 Level 3 Est. Patient 15:27:02 CDT Jared Og MD [facility] CPT-22788 Level 4 Est. Patient 09:25:27 CDT Gab Padron MD [facility] CPT-06475 Level 3 Est. Patient 10:29:41 CDT Rodrigo Sarah [facility] CPT-77176 Level 4 Est. Patient 17:51:05 CDT Gab Padron MD [facility] CPT-06830 Level 3 Est. Patient 14:18:08 CDT Gab Padron MD [facility] CPT-97399 Level 4 Est. Patient 10:18:54 CDT Gab Padron MD [facility] CPT-98685 Level 3 Est. Patient 11:30:07 CDT Rodrigo Sarah [facility] CPT-91538 Level 4 Est. Patient 21:02:30 GREIGE MENDER Gab Padron MD [facility] CPT-06396 Level 3 Est. Patient 11:02:19 GREIGE MENDER [facility] CPT-06928 Level 4 Est. Patient 22:24:31 GREIGE MENDER Gab Padron [facility] CPT-01813 Level 3 Est. Patient 18:33:46 GREIGE MENDER Gab Padron MD [facility]-21333 Level 3 Est. Patient 16:19:11 CDT Yolande Lindsay MD [facility]-10440 Level 3 Est. Patient 18:59:14 CDT Yolande Lindsay MD [facility]-94111 Level 4 Est. Patient 21:29:26 CDT Yolande Lindsay MD [facility]-46839 Level 3 Est. Patient 07:37:45 CDT Yolande Lindsay MD [facility]-19761 Level 3 Est. Patient 17:03:46 CDT Yolande Lindsay MD [facility]-32604 Level 4 Est. Patient 20:02:13 GREIGE MENDER Yolande Lindsay MD [facility]-98659 Level 3 Est. Patient 16:02:07 GREIGE MENDER Alexis Ordaz MD [facility]-14665 Level 3 Est. Patient 12:41:24 GREIGE MENDER Yolande Lindsay MD [facility]-77913 Level 3 Est. Patient 15:41:20 GREIGE MENDER Yolande Lindsay MD [facility]-65053 Level 3 Est. Patient 13:20:02 GREIGE MENDER Yolande Lindsay MD [facility]-34713 Level 3 Est. Patient 15:00:38 CDT Jared Og MD [facility]-68397 Level 3 Est. Patient 10:22:32 CDT Yolande Lindsay MD [facility]-09350 Level 3 Est. Patient 17:12:58 CDT Yolande Lindsay MD [facility]-95147 Level 4 Est. Patient 13:30:58 CDT Yolande Lindsay MD [facility] CPT-53825 Level 4 New Patient 09:02:42 CDT Jared Og MD [facility]-82502 Level 3 Est. Patient 08:19:07 CDT Yolande Lindsay MD [facility]-35626 Level 3 Est. Patient 12:00:13 GREIGE MENDER Gab Padron MD [facility]-95465 Level 3 Est. Patient 16:15:23 GREIGE MENDER Yolande Lindsay MD [facility]-02267 Level 2 Est. Patient 19:47:15 CDT Yolande Lindsay MD [facility]-74548 Level 3 Est. Patient 21:38:31 CDT Yolande Lindsay MD [facility]-90181 Level 3 Est. Patient 10:25:12 CDT Adiel [facility] CPT-08349 Level 4 Est. Patient 10:51:58 CDT Yolande Lindsay MD [facility]-46352 Level 3 Est. Patient 14:04:55 GREIGE MENDER Rodrigo Sarah [facility]-82090 Level 3 Est. Patient 10:46:35 GREIGE MENDER Rodrigo Sarah [facility]-35432 Level 3 Est. Patient 14:24:37 GREIGE MENDER Yolande Lindsay MD [facility]-67061 Level 3 Est. Patient 17:41:58 GREIGE MENDER Yolande Lindsay MD [facility]-93989 Level 2 Est. Patient 22:01:41 GREIGE MENDER Rodrigo Sarah [facility]-74678 Level 2 Est. Patient 22:01:11 GREIGE MENDER Rodrigo Sarah [facility] CPT-50296 Level 3 Est. Patient 10:12:29 GREIGE MENDER Rodrigo Sarah [facility] CPT-79729 Level 3 Est. Patient 11:05:44 CDT Alexis Ordaz [facility] CPT-74775 Level 3 Est. Patient 14:57:20 CDT Yolande Lindsay MD [facility] CPT-87301 Level 3 Est. Patient 14:40:57 CDT Yolande Lindsay MD [facility] CPT-35679 Level 3 Est. Patient 20:55:40 CDT Yolande Lindsay MD [facility] CPT-79622 Level 3 Est. Patient 12:42:38 GREIGE MENDER Yolande Lindsay MD [facility] CPT-25235 Level 3 Est. Patient 11:54:49 GREIGE MENDER Des Hines [facility] CPT-13479 Level 3 Est. Patient 17:06:38 CDT Dewayne [facility] Procedures Code Procedure Name Date Entry Date Standard Description CPT-97369 Venipuncture Draw Fee 08:37:59 GREIGE MENDER CPT-53606 Liver Profile - LAB USE ONLY 08:37:59 GREIGE MENDER CPT-42290 Lipid - LAB USE ONLY 08:37:58 GREIGE MENDER CPT-93096 First Vx - Ix admin via ID IM or jet injects without counseling by physician 11:52:31 CDT CPT-87078 Fluzone Preservative Free Intramuscular Suspension 11:52 :31 CDT CPT-19032 Foot, left, comp min 3V - XRAY USE ONLY 09:24:54 CDT CPT-46322 Abd single AP View - XRAY USE ONLY 11:16:17 CDT CPT-39114 T spine AP/ Lat - XRAY USE ONLY 09:34:21 CDT CPT-65425 Chest 2V Frontal and Lat - XRAY USE ONLY 10:48:51 CDT CPT-78384 LS spine comp w obliq 13:28:00 GREIGE MENDER CPT-J1040 Depo Medrol 80 mg (Methyl Prednisolone Acetate) 10:51: 28 GREIGE MENDER CPT-J1100 Decadron 8mg (Dexamethasone) 10:51:28 GREIGE MENDER CPT-05177 Abx/Therapy Injection 10:51:28 GREIGE MENDER CPT-J1100 Decadron 8mg (Dexamethasone) 21:02:30 GREIGE MENDER CPT-J1040 Depo Medrol 80 mg (Methyl Prednisolone Acetate) 21:02: 30 GREIGE MENDER [id number] Event Monitor - MC Transmission 09:12:32 CDT 08/06 [id number] Event Monitor - MC review and interp 09:12:32 CDT [id number] Event Monitor - MC recording 09:12:32 CDT CPT-19513 EKG Trac and Interp 16:50:22 CDT CPT-J1030 Depo Medrol 40 mg (Methyl Prednisolone Acetate) 17:05: 54 CDT CPT-J1100 Decadron 4mg (Dexamethasone) 17:05:54 CDT CPT-66703 Abx/Therapy Injection 17:05:54 CDT CPT-J1100 Decadron 4mg (Dexamethasone) 16:55:28 CDT CPT-J1030 Depo Medrol 40 mg (Methyl Prednisolone Acetate) 16:55: 28 CDT CPT-06412 Ankle Complete - Min 3V 15:58:50 CDT CPT-89440 Knee 3V 15:58:50 CDT CPT-51525 Hip comp min 2V 15:58:50 CDT CPT-J2270 Morphine Sulfate 10 mg 14:25:44 GREIGE MENDER CPT-J2550 Phenergan 12.5 mg (Promethazine) 14:25:44 GREIGE MENDER CPT-71095 Abx/Therapy Injection 14:25:44 GREIGE MENDER CPT-J2550 Phenergan 12.5 mg (Promethazine) 14:08:03 GREIGE MENDER CPT-J2270 Morphine Sulfate 10 mg 14:08:03 GREIGE MENDER CPT-81218 Bladder Scan 15:00:38 CDT CPT-TCMM Transitional Care Mgmt-Moderate 09:52:22 CDT CPT-J1030 Depo Medrol 40 mg (Methyl Prednisolone Acetate) 10:55: 18 CDT CPT-J1100 Decadron 4mg (Dexamethasone) 10:55:18 CDT CPT-70364 Abx/Therapy Injection 10:55:18 CDT CPT-J1030 Depo Medrol 40 mg (Methyl Prednisolone Acetate) 10:22: 32 CDT CPT-J1100 Decadron 4mg (Dexamethasone) 10:22:32 CDT CPT-09728 Postop F/U Visit 14:37:13 CDT CPT-23051 Ankle Complete - Min 3V 17:11:58 CDT CPT-92613 Foot comp min 3V 17:11:58 CDT CPT-54959 Bladder Scan 09:56:58 CDT CPT-48614 Postop F/U Visit 09:56:58 CDT CPT-45541 Cystoscopy 09:02:42 CDT CPT-26254 Bladder Scan 09:02:42 CDT CPT-30363 Abd single AP View 16:00:35 CDT CPT-04796 Administration single or combination vaccine inc oral 10 :15:43 CDT CPT-41516 Influenza split virus > age 3 10:15:43 CDT CPT-51290 Nail Avulsion 09:24:57 CDT CPT-OV Office Visit 11:15:41 CDT CPT-15123 Abx/Therapy Injection 10:51:30 CDT CPT-J3301 Kenalog 40 mg (Triamcinolone Acetonide) 10:25:12 CDT CPT-J1100 Decadron 4mg (Dexamethasone) 10:25:12 CDT CPT-04422 Anoscopy diagnostic 10:36:12 CDT CPT-OV Office Visit 15:34:31 CDT CPT-66372 Abx/Therapy Injection 08:21:15 GREIGE MENDER CPT-J1885 Toradol 60 mg (Ketorolac) 10:46:35 GREIGE MENDER CPT-OV Office Visit 19:51:16 GREIGE MENDER CPT-30545 Spec Collection and Handling Fee 14:34:18 GREIGE MENDER CPT-PV Prev. Care Visit 14:19:18 GREIGE MENDER CPT-61141 Postop F/U Visit 14:47:51 GREIGE MENDER CPT-06721 Postop F/U Visit 15:15:14 GREIGE MENDER CPT-14621 Postop F/U Visit 14:41:43 CDT CPT-85415 Postop F/U Visit 15:47:46 CDT CPT-OV Office Visit 15:27:23 CDT CPT-OV Office Visit 17:20:34 CDT CPT-38610 Abx/Therapy Injection 15:05:57 CDT CPT-J1100 Decadron 8mg (Dexamethasone) 14:44:57 CDT CPT-J1040 Depo Medrol 80 mg (Methyl Prednisolone Acetate) 14:44: 57 CDT CPT-JTINJ Joint Injection 10:17:37 CDT CPT-26496 Administration 2+ single or combination vaccines inc oral 13:01:46 GREIGE MENDER CPT-95264 Administration single or combination vaccine inc oral 13 :01:46 GREIGE MENDER CPT-87657 Pneumovax 13:01:46 GREIGE MENDER CPT-46391 Influenza split virus > age 3 13:01:46 GREIGE MENDER CPT-14436 Administration single or combination vaccine inc oral 08 :56:49 CDT CPT-29277 Tdap 08:56:49 CDT
--- OUTSIDE RECORDS SUMMARY | 2017-03-22 00:34 | XMS REPORT ---
Author Author [facility] Medical Staff Organization [facility] Address [address] [id number] Phone [phone] Care Team Providers Care Vacuum Worker Name Role Phone EVELYN SPEARS MD PP [phone] Summary purpose TRANSITION OF CARE AUTO GENERATION [...]
--- OUTSIDE RECORDS SUMMARY | 2017-03-22 00:34 | XMS REPORT | Clinical Summary ---
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 Inactive Yoalnde Lindsay MD PhD Sexual dysfunction ICD-302.70 Inactive [...] Gab Padron MD Flank Pain Inactive Gab aPdron MD Foot pain, left ICD-729.5 Inactive Gab [...] 1 po qd PRN Allergies CETIRIZINE HCL 77508099825 Active Gab Padron MD Active CLARITIN 10 MG TAB 1 tablet by mouth daily as needed for allergies LORATADINE 79726188021 No Longer Active Gab Padron MD Active PREDNISONE 20 MG TAB take 3 tabs daily for 3 days, 2 tabs daily for 3 days, 1 tab daily for 3 days, 1/2 tab daily for 3 days PREDNISONE 86495602057 No Longer Active Tisha Lambert APRN Active TRAMADOL HCL 50 MG TABS 1 tab po every 6 hrs prn pain TRAMADOL HCL 68280320151 Active Gab Padron MD Active PREDNISONE 20 MG TAB 2 tabs daily for 3 days, 1 tab daily for 3 days, 1/2 tab daily for 2 days PREDNISONE 93485785574 No Longer Active Gab Padron MD Active ZOFRAN ODT 4 MG TBDP 1 po q6hr PRN Nausea ONDANSETRON 73776384106 Active Gab Padron MD Active IBUPROFEN 600 MG TAB 1 tablet by mouth every 6 hours for 7 days, then 1 tablet every 6 hours as needed. Take with food IBUPROFEN 68179692006 Active Rodrigo Sarah APRN Active BACTRIM DS 800-160 MG TAB 1 tab by mouth twice daily TRIMETHOPRIM-SULFAMETHOXAZOLE 78407710568 No Longer Active Gab Padron MD Active ADVAIR DISKUS 250-50 MCG/DOSE AEPB 1 puff BID FLUTICASONE- SALMETEROL 31766529192 Active Rodrigo Sarah APRN Active LEVOTHYROXINE SODIUM 75 MCG TABS Take 1 tab daily LEVOTHYROXINE SODIUM 15257072852 No Longer Active Mariana FLEMING Active SYNTHROID 88 MCG ORAL TABS Take one by mouth daily LEVOTHYROXINE SODIUM 66371330569 Active Gab Padron MD Active CHERATUSSIN AC 100-10 MG/5ML SYRP 1 tsp by mouth every 4 hours as needed for cough GUAIFENESIN-CODEINE 71975521739 No Longer Active Gab Padron MD Active POLYTRIM 18082-7.1 UNIT/ML-% SOLN 1 gtt to affected eye q3h x 7 days POLYMYXIN B-TRIMETHOPRIM 33171464715 No Longer Active Gab Padron MD Active FLUTICASONE PROPIONATE 50 MCG/ACT SUSP 1 to 2 sprays each nostril daily 04/21 FLUTICASONE PROPIONATE 36656583844 No Longer Active Gab Padron MD Active TRILEPTAL 600 MG TABS Take one 1 tablet in Am and 1 tablet at night OXCARBAZEPINE 66483671639 Active Gab Padron MD Active CEFDINIR 300 MG CAPS 1 po BID x 10 days CEFDINIR 22485632517 No Longer Active Rodrigo Sarah APRN Active CEFTIN 500 MG TAB 1 twice a day CEFUROXIME AXETIL 39078585137 No Longer Active Gab Padron MD Active AZITHROMYCIN 250 MG TABS 2 po qd x 1 day, then 1 po qd x 4 days AZITHROMYCIN 47427673258 No Longer Active Rodrigo Sarah APRN Active OXYCODONE HCL 5 MG ORAL CAPS 1 TAB PO Q HS OXYCODONE HCL 81151217848 No Longer Active Silvestrellnacho Sarah APRN Active NIASPAN 500 MG ORAL CR-TABS 1 pill nightly x 1 week, then 2 pills nightly x 1 week, then 3 pills nightly x 1 week, then 4 pills nightly NIACIN (ANTIHYPERLIPIDEMIC) 32541662325 No Longer Active Silvestrellnacho Sarah APRN Active NIACIN 500 MG TABS 1 pill by mouth nightly x 1 week, then 2 pills x 1 week, then 3 pills x 1 week, then 4 pills nightly - take after evening meal, with applesauce or an apple NIACIN 13896694968 No Longer Active Yolande Lindsay MD PhD Active FISH OIL 1000 MG CAPS 3 pills daily OMEGA-3 FATTY ACIDS 37489924607 Active Yolande Lindsay MD PhD Active TRIAMCINOLONE ACETONIDE 0.1 % CREA apply bid sparingly to rash TRIAMCINOLONE ACETONIDE 11225760968 Active Yolande Lindsay MD PhD Active FUROSEMIDE 20 MG TAB 1 tablet by mouth daily FUROSEMIDE 25141011368 Active Gab Padron MD Active LISINOPRIL 20 MG ORAL TABS 1 tab by mouth daily LISINOPRIL 34882211577 Active Gab Padron MD Active FUROSEMIDE 20 MG TABS 1 pill by mouth daily, for edema FUROSEMIDE 22699094547 No Longer Active Yolande Lindsay MD PhD Active ATORVASTATIN CALCIUM 10 MG TABS 1 pill by mouth daily, for cholesterol 09/06 ATORVASTATIN CALCIUM 85322334404 Active Gab Padron MD Active CALCIUM 600+D PLUS MINERALS 600-400 MG-UNIT ORAL CHEW 1 tab by mouth daily CALCIUM CARBONATE-VIT D-MIN 20304272433 No Longer Active Yolande Lindsay MD PhD Active CYCLOBENZAPRINE HCL 10 MG TABS 1 tablet by mouth three times daily as needed for muscle spasm/pain CYCLOBENZAPRINE HCL 67541469677 Active Yolande Lindsay MD PhD Active ONDANSETRON 4 MG TBDP 1 q4h PRN nausea ONDANSETRON 23547012124 Active Yolande Lindsay MD PhD Active ADULT ASPIRIN EC LOW STRENGTH 81 MG TBEC Take 1 tablet by mouth daily 2014 ASPIRIN 86838233074 No Longer Active Yolande Lindsay MD PhD Active ZOFRAN ODT 4 MG TBDP 1 pill dissolved by mouth every 4 hours if needed for nausea ONDANSETRON 85718058566 No Longer Active Yolande Lindsay MD PhD Active CEFTIN 500 MG TAB 1 twice a day CEFUROXIME AXETIL 50747613529 No Longer Active Yolande Lindsay MD PhD Active ALBUTEROL SULFATE 0.083 % NEBU SOLN one vial per nebulizer every 4-6 hours as needed ALBUTEROL SULFATE 08513351487 No Longer Active Alexis Ordaz MD Active DOXYCYCLINE HYCLATE 100 MG CAP 1 cap by mouth twice daily DOXYCYCLINE HYCLATE 30272463260 No Longer Active Yolande Lindsay MD PhD Active CYCLOBENZAPRINE HCL 10 MG TABS 1/2 - 1 tab by mouth three times daily if needed for spasms/pain CYCLOBENZAPRINE HCL 11104784735 No Longer Active Yolande Lindsay MD PhD Active AZITHROMYCIN 250 MG TABS 2 pills on day 1, then 1 pill daily x 4 days AZITHROMYCIN 68362974110 No Longer Active Yolande Lindsay MD PhD Active XOPENEX 1.25 MG/3ML NEBU 1 neb every 4 hours if needed for cough/congestion LEVALBUTEROL HCL 91858215531 No Longer Active Yolande Lindsay MD PhD Active DOXYCYCLINE HYCLATE 100 MG TAB 1 tab twice a day for 14 days 2013 DOXYCYCLINE HYCLATE 03854246433 No Longer Active Yolande Lindsay MD PhD Active PREVACID 30 MG CPDR Take 1 tablet by mouth daily-PRN LANSOPRAZOLE 86820539424 No Longer Active Yolande Lindsay MD PhD Active PA VITAMIN D-3 2000 UNIT CAPS 1 CAP PO DAILY CHOLECALCIFEROL 83588070750 No Longer Active Yolande Lindsay MD PhD Active CEFDINIR 300 MG CAPS by mouth twice a day CEFDINIR 08441582923 No Longer Active Gab Padron MD Active TOPAMAX 50 MG TABS 1 PO twice daily TOPIRAMATE 50682633100 Active Yolande Lindsay MD PhD Active AZITHROMYCIN 250 MG TABS 2 po qd x 1 day, then 1 po qd x 4 days AZITHROMYCIN 62478350311 No Longer Active Yolande Lindsay MD PhD Active DICLOFENAC SODIUM 75 MG TBEC 1 tablet by q 12 hours PRN headaches DICLOFENAC SODIUM 43631285838 No Longer Active Yolande Lindsay MD PhD Active FLONASE 50 MCG/ACT SUSP 1 spray each nostril am and hs FLUTICASONE PROPIONATE 90688063386 No Longer Active Todd Callaway MD Active ANUSOL-HC 25 MG SUPPOSITORY 1 rectally twice a day as needed for hemorrhoids HYDROCORTISONE JAYDEN (RECTAL) 73135412699 No Longer Active Yolande Lindsay MD PhD Active ANUSOL-HC 25 MG SUPPOSITORY 1 suppository rectally each evening as needed for anal fissure HYDROCORTISONE JAYDEN (RECTAL) 91696139123 No Longer Active LONNIE Iglesias Active VALIUM 5 MG TAB 1 po 30 minutes prior to your MRI DIAZEPAM 51296712818 No Longer Active LONNIE Iglesias Active METHOCARBAMOL 750 MG TABS 1 PO QID PRN METHOCARBAMOL 15183933319 No Longer Active Daphne Wetzel APRN Active NITROSTAT 0.4 MG SUBL as directed NITROGLYCERIN 65235039533 No Longer Active Rodrigo Sarah APRN Active ROBAXIN-750 750 MG TABS 2 four times a day for 3 days as needed for muscle spasm, then 1 four times a day as needed METHOCARBAMOL 00719932924 No Longer Active Rodrigo Sarah APRN Active HYDROCODONE-ACETAMINOPHEN 5-325 MG TABS 1 q 4-6 hrs prn HYDROCODONE-ACETAMINOPHEN 71362917924 No Longer Active Rodrigo Sarah APRN Active VERAPAMIL HCL CR 180 MG CR-TABS TAKE 1 TAB DAILY VERAPAMIL HCL 81070627031 No Longer Active Yolande Lindsay MD PhD Active BACTRIM DS 800-160 MG TAB 1 tab by mouth twice daily TRIMETHOPRIM-SULFAMETHOXAZOLE 58316785856 No Longer Active Yolande Lindsay MD PhD Active NEXIUM 40 MG PACK 1 by mouth daily ESOMEPRAZOLE MAGNESIUM 97539339326 No Longer Active Des Hines MD Active EPIPEN 2-CHARLETTE 0.3 MG/0.3ML OMARI as need for allergic reaction EPINEPHRINE 24521658867 Active Yolande Lindsay MD PhD Active NEXIUM 40 MG CPDR 1 PO Q D DAY ESOMEPRAZOLE MAGNESIUM 80648769953 No Longer Active Sadia Perry RN Active NEXIUM 40 MG PACK 1 by mouth daily NEXIUM 40 MG PACK ESOMEPRAZOLE MAGNESIUM Inactive VERAPAMIL HCL CR 180 MG CR-TABS TAKE 1 TAB DAILY VERAPAMIL HCL CR 180 MG CR-TABS VERAPAMIL HCL Inactive HYDROCODONE-ACETAMINOPHEN 5-325 MG TABS 1 q 4-6 hrs prn HYDROCODONE-ACETAMINOPHEN 5-325 MG TABS 341008 HYDROCODONE-ACETAMINOPHEN Inactive ROBAXIN-750 750 MG TABS 2 four times a day for 3 days as needed for muscle spasm, then 1 four times a day as needed ROBAXIN-750 750 MG TABS 071024 METHOCARBAMOL Inactive NITROSTAT 0.4 MG SUBL as directed NITROSTAT 0.4 MG SUBL 197584 NITROGLYCERIN Inactive METHOCARBAMOL 750 MG TABS 1 PO QID PRN METHOCARBAMOL 750 MG TABS 056255 METHOCARBAMOL Inactive VALIUM 5 MG TAB 1 po 30 minutes prior to your MRI VALIUM 5 MG TAB 581812 DIAZEPAM Inactive ANUSOL-HC 25 MG SUPPOSITORY 1 suppository rectally each evening as needed for anal fissure ANUSOL-HC 25 MG SUPPOSITORY 9826728 HYDROCORTISONE JAYDNE (RECTAL) Inactive ANUSOL-HC 25 MG SUPPOSITORY 1 rectally twice a day as needed for hemorrhoids ANUSOL-HC 25 MG SUPPOSITORY 2346432 HYDROCORTISONE JAYDEN (RECTAL) Inactive FLONASE 50 MCG/ACT SUSP 1 spray each nostril am and hs FLONASE 50 MCG/ACT SUSP 7865129 FLUTICASONE PROPIONATE Inactive DICLOFENAC SODIUM 75 MG TBEC 1 tablet by q 12 hours PRN headaches DICLOFENAC SODIUM 75 MG TBEC 025086 DICLOFENAC SODIUM Inactive PA VITAMIN D-3 2000 UNIT CAPS 1 CAP PO DAILY PA VITAMIN D-3 2000 UNIT CAPS CHOLECALCIFEROL Inactive PREVACID 30 MG CPDR Take 1 tablet by mouth daily-PRN PREVACID 30 MG CPDR 504394 LANSOPRAZOLE Inactive DOXYCYCLINE HYCLATE 100 MG TAB 1 tab twice a day for 14 days 2013 DOXYCYCLINE HYCLATE 100 MG TAB 8317625 DOXYCYCLINE HYCLATE Inactive XOPENEX 1.25 MG/3ML NEBU 1 neb every 4 hours if needed for cough/congestion XOPENEX 1.25 MG/3ML NEBU 212473 LEVALBUTEROL HCL Inactive CYCLOBENZAPRINE HCL 10 MG TABS 1/2 - 1 tab by mouth three times daily if needed for spasms/pain CYCLOBENZAPRINE HCL 10 MG TABS 885446 CYCLOBENZAPRINE HCL Inactive ALBUTEROL SULFATE 0.083 % NEBU SOLN one vial per nebulizer every 4-6 hours as needed ALBUTEROL SULFATE 0.083 % NEBU SOLN 602819 ALBUTEROL SULFATE Inactive CEFTIN 500 MG TAB 1 twice a day CEFTIN 500 MG TAB 288653 CEFUROXIME AXETIL Inactive ZOFRAN ODT 4 MG TBDP 1 pill dissolved by mouth every 4 hours if needed for nausea ZOFRAN ODT 4 MG TBDP 257076 ONDANSETRON Inactive ADULT ASPIRIN EC LOW STRENGTH 81 MG TBEC Take 1 tablet by mouth daily 2014 ADULT ASPIRIN EC LOW STRENGTH 81 MG TBEC 941945 ASPIRIN Inactive CALCIUM 600+D PLUS MINERALS 600-400 [...] or an apple NIACIN 500 MG TABS 058145 NIACIN Inactive NIASPAN 500 MG ORAL CR-TABS 1 pill nightly x 1 week, then 2 pills nightly x 1 week, then 3 pills nightly x 1 week, then 4 pills nightly NIASPAN 500 MG ORAL CR-TABS NIACIN (ANTIHYPERLIPIDEMIC) Inactive OXYCODONE HCL 5 MG ORAL CAPS 1 TAB PO Q HS OXYCODONE HCL 5 MG ORAL CAPS 6270474 OXYCODONE HCL Inactive FLUTICASONE PROPIONATE 50 MCG/ACT SUSP 1 to 2 sprays each nostril daily 04/21 FLUTICASONE PROPIONATE 50 MCG/ACT SUSP 1267270 FLUTICASONE PROPIONATE Inactive POLYTRIM 78045-4.1 UNIT/ML-% SOLN 1 gtt to affected eye q3h x 7 days POLYTRIM 16885-5.1 UNIT/ML-% SOLN 825452 POLYMYXIN B- TRIMETHOPRIM Inactive CHERATUSSIN AC 100-10 MG/5ML SYRP 1 tsp by mouth every 4 hours as needed for cough CHERATUSSIN AC 100-10 MG/5ML SYRP 858309 GUAIFENESIN-CODEINE Inactive LEVOTHYROXINE SODIUM 75 MCG TABS Take 1 tab daily LEVOTHYROXINE SODIUM 75 MCG TABS 448911 LEVOTHYROXINE SODIUM Inactive CLARITIN 10 MG TAB 1 tablet by mouth daily as needed for allergies CLARITIN 10 MG TAB 034352 LORATADINE Inactive BACTRIM DS 800-160 MG TAB 1 tab by mouth twice daily BACTRIM DS 800-160 MG TAB 700584 TRIMETHOPRIM-SULFAMETHOXAZOLE Inactive AZITHROMYCIN 250 MG TABS 2 po qd x 1 day, then 1 po qd x 4 days AZITHROMYCIN 250 MG TABS 4597187 AZITHROMYCIN Inactive CEFDINIR 300 MG CAPS by mouth twice a day CEFDINIR 300 MG CAPS 600357 CEFDINIR Inactive AZITHROMYCIN 250 MG TABS 2 pills on day 1, then 1 pill daily x 4 days AZITHROMYCIN 250 MG TABS 3866292 AZITHROMYCIN Inactive DOXYCYCLINE HYCLATE 100 MG CAP 1 cap by mouth twice daily DOXYCYCLINE HYCLATE 100 MG CAP 5806446 DOXYCYCLINE HYCLATE Inactive FUROSEMIDE 20 MG TABS 1 pill by mouth daily, for edema FUROSEMIDE 20 MG TABS 821562 FUROSEMIDE Inactive AZITHROMYCIN 250 MG TABS 2 po qd x 1 day, then 1 po qd x 4 days AZITHROMYCIN 250 MG TABS 4379801 AZITHROMYCIN Inactive CEFTIN 500 MG TAB 1 twice a day CEFTIN 500 MG TAB 198281 CEFUROXIME AXETIL Inactive CEFDINIR 300 MG CAPS 1 po BID x 10 days CEFDINIR 300 MG CAPS 470923 CEFDINIR Inactive BACTRIM DS 800-160 MG TAB 1 tab by mouth twice daily BACTRIM DS 800-160 MG TAB 430389 TRIMETHOPRIM-SULFAMETHOXAZOLE Inactive PREDNISONE 20 MG TAB 2 tabs daily for 3 days, 1 tab daily for 3 days, 1/2 tab daily for 2 days PREDNISONE 20 MG TAB 671669 PREDNISONE Inactive PREDNISONE 20 MG TAB take 3 tabs daily for 3 days, 2 tabs daily for 3 days, 1 tab daily for 3 days, 1/2 tab daily for 3 days PREDNISONE 20 MG TAB 975940 PREDNISONE Inactive Immunizations Vaccine Administration Date Value Standard Description Seasonal influenza vaccine, injectable, containing preservative, for > 3 years old (Afluria, FluLaval, Fluzone, Fluvirin, Fluarix, Agriflu(>=18 yo)) Fluzone (>3 yrs.) [IQM563] Influenza, seasonal, injectable influenza immunization (Flu Vax) has been administered Influenza - Unspecified Formulation [CVX88] influenza virus vaccine, unspecified formulation Seasonal influenza vaccine, injectable, containing preservative, for > 3 years old (Afluria, FluLaval, Fluzone, Fluvirin, Fluarix, Agriflu(>=18 yo)) Fluzone (>3 yrs.) [YMM812] Influenza, seasonal, injectable pneumococcal immunization administered Pneumovax 23 [CVX33] pneumococcal polysaccharide vaccine, 23 valent dT (Diphtheria and Tetanus) booster given given Td(adult) unspecified formulation Boostrix (Tetanus toxoid, reduced diphtheria toxoid and acellular pertussis vaccine, adsorbed), booster Boostrix [TIY254] tetanus toxoid, reduced diphtheria toxoid, and acellular [...] Panel - Chemistry sodium, serum 142 mmol/L 362-175 3623/06/30 potassium, serum 4.4 mmol/L 3.5-5.2 chloride, serum 108 mmol/L 98-107 carbon dioxide, venous blood 25.1 mmol/L 21.0-32.0 blood glucose 82 mg/dL 65-110 calcium, serum 9.1 mg/dL 8.5-10.1 urea nitrogen, blood 18 mg/dL 7-18 creatinine, serum 1.31 mg/dL 0.55-1.30 Lab Report: Lipid Panel, HEPATIC PANEL - Chemistry cholesterol, serum 166 mg/dL [phone]/12/06 triglyceride, serum, fasting 86 mg/dL 30-200 HDL [...] dipstick Negative Negative sodium, serum 142 mmol/L 745-787 2295/07/18 carbon dioxide, venous blood 27.8 mmol/L 21.0-32.0 [...] negative Encounters Code Encounter Date Provider Facility CPT-51407 Level 4 Est. Patient 13:18:33 CDT Gab Padron MD [facility] CPT-23826 Level 3 Est. Patient 15:20:50 CDT Jared Og MD [facility] CPT-08047 Level 3 Est. Patient 17:43:55 MANAGER PERFORMANCE IMPROVEMENT Gab Padron MD [facility] CPT-86791 Level 3 Est. Patient 17:07:49 MANAGER PERFORMANCE IMPROVEMENT Jared Og MD [facility] CPT-03293 Level 4 Est. Patient 19:55:18 MANAGER PERFORMANCE IMPROVEMENT Jared Og MD [facility] CPT-58676 Level 3 Est. Patient 20:13:34 MANAGER PERFORMANCE IMPROVEMENT Jared Og MD [facility] CPT-27823 Level 4 Est. Patient 16:31:27 CDT Gab Padron MD [facility] CPT-11291 Level 2 Est. Patient 12:23:38 CDT Jared Og MD [facility] CPT-36112 Level 3 Est. Patient 11:01:51 CDT Gab Padron MD [facility]-52463 Level 3 Est. Patient 15:27:02 CDT Jared Og MD [facility] CPT-57963 Level 4 Est. Patient 09:25:27 CDT Gab Padron MD [facility]-98210 Level 3 Est. Patient 10:29:[address] [facility]-26504 Level 4 Est. Patient 17:51:05 CDT Gab Padron MD [facility]-28220 Level 3 Est. Patient 14:18:08 CDT Gab Padron MD [facility]-20476 Level 4 Est. Patient 10:18:54 CDT Gab Padron MD [facility]-10487 Level 3 Est. Patient 11:30:07 CDT Rodrigo Sarah [facility] CPT-81941 Level 4 Est. Patient 21:02:30 MANAGER PERFORMANCE IMPROVEMENT Gab Padron MD [facility]-11007 Level 3 Est. Patient 11:02:19 MANAGER PERFORMANCE IMPROVEMENT Gab Padron MD [facility] CPT-07054 Level 4 Est. Patient 22:24:31 MANAGER PERFORMANCE IMPROVEMENT Gab Padron MD [facility]-97785 Level 3 Est. Patient 18:33:46 MANAGER PERFORMANCE IMPROVEMENT Gab Padron MD [facility] CPT-11105 Level 3 Est. Patient 16:19:11 CDT Yolande Lindsay MD [facility]-48276 Level 3 Est. Patient 18:59:14 CDT Yolande Lindsay MD PhD [facility] CPT-86181 Level 4 Est. Patient 21:29:26 CDT Yolande Lindsay MD [facility]60294 Level 3 Est. Patient 07:37:45 CDT Yolande Lindsay MD [facility]-18801 Level 3 Est. Patient 17:03:46 CDT Yolande Lindsay MD [facility] CPT-06703 Level 4 Est. Patient 20:02:13 MANAGER PERFORMANCE IMPROVEMENT Yolande Lindsay MD [facility] CPT-23703 Level 3 Est. Patient 16:02:07 MANAGER PERFORMANCE IMPROVEMENT Alexis Ordaz MD [facility] CPT-57786 Level 3 Est. Patient 12:41:24 MANAGER PERFORMANCE IMPROVEMENT Yloande Lindsay MD [facility]-41931 Level 3 Est. Patient 15:41:20 MANAGER PERFORMANCE IMPROVEMENT Yolande Lindsay MD [facility]-61344 Level 3 Est. Patient 13:20:02 MANAGER PERFORMANCE IMPROVEMENT Yolande Lindsay MD [facility]-34582 Level 3 Est. Patient 15:00:38 CDT Jared Og MD [facility] CPT-71237 Level 3 Est. Patient 10:22:32 CDT Yolande Lindsay MD [facility] CPT-43137 Level 3 Est. Patient 17:12:58 CDT Yolande Lindsay MD [facility] CPT-54801 Level 4 Est. Patient 13:30:58 CDT Yolande Lindsay MD [facility] CPT-48234 Level 4 New Patient 09:02:42 CDT Jared Og MD [facility]-78623 Level 3 Est. Patient 08:19:07 CDT Yolande Lindsay MD [facility] CPT-01807 Level 3 Est. Patient 12:00:13 MANAGER PERFORMANCE IMPROVEMENT Gab Padron MD [facility]-07874 Level 3 Est. Patient 16:15:23 MANAGER PERFORMANCE IMPROVEMENT Yolande Lindsay MD [facility] CPT-61072 Level 2 Est. Patient 19:47:15 CDT Yolande Lindsay MD [facility]-14535 Level 3 Est. Patient 21:38:31 CDT Yolande Lindsay MD [facility]-60381 Level 3 Est. Patient 10:25:12 CDT Adiel PREAZA [facility]-92652 Level 4 Est. Patient 10:51:58 CDT Yolande Lindsay MD [facility]-72604 Level 3 Est. Patient 14:04:55 MANAGER PERFORMANCE IMPROVEMENT Rodrigo Sarah [facility] CPT-28727 Level 3 Est. Patient 10:46:35 MANAGER PERFORMANCE IMPROVEMENT Rodrigo Sarah [facility]-10123 Level 3 Est. Patient 14:24:37 MANAGER PERFORMANCE IMPROVEMENT Yolande Lindsay MD [facility]-21397 Level 3 Est. Patient 17:41:58 MANAGER PERFORMANCE IMPROVEMENT Yolande Lindsay MD [facility]-83249 Level 2 Est. Patient 22:01:41 MANAGER PERFORMANCE IMPROVEMENT Rodrigo Sarah [facility] CPT-25544 Level 2 Est. Patient 22:01:11 MANAGER PERFORMANCE IMPROVEMENT Rodrigo Sarah [facility] CPT-49756 Level 3 Est. Patient 10:12:29 MANAGER PERFORMANCE IMPROVEMENT Rodrigo Sarah [facility] CPT-69677 Level 3 Est. Patient 11:05:44 CDT Alexis Ordaz MD [facility] CPT-34946 Level 3 Est. Patient 14:57:20 CDT Yolande Lindsay MD [facility]-06023 Level 3 Est. Patient 14:40:57 CDT Yolande Lindsay MD [facility]-93413 Level 3 Est. Patient 20:55:40 CDT Yolande Lindsay MD [facility]-45733 Level 3 Est. Patient 12:42:38 MANAGER PERFORMANCE IMPROVEMENT Yolande Lindsay MD PhD [facility] CPT-34268 Level 3 Est. Patient 11:54:49 MANAGER PERFORMANCE IMPROVEMENT Des Hines MD [facility] CPT-16175 Level 3 Est. Patient 17:06:38 CDT Dewayne PERAZA [facility] Procedures Code Procedure Name Date Entry Date Standard Description CPT-J2930 Solu Medrol 125 mg (Methyl Prednisolone Sodium Succinate) 13:19:02 CDT CPT-60304 Abx/Therapy Injection 13:19:02 CDT CPT-J2930 Solu Medrol 125 mg (Methyl Prednisolone Sodium Succinate) 13:05:03 CDT CPT-52607 Hip, complete, 2-3 views - XRAY USE ONLY 17:19:04 MANAGER PERFORMANCE IMPROVEMENT CPT-00315 Venipuncture Draw Fee 08:37:59 MANAGER PERFORMANCE IMPROVEMENT CPT-82196 Liver Profile - LAB USE ONLY 08:37:59 MANAGER PERFORMANCE IMPROVEMENT CPT-09962 Lipid - LAB USE ONLY 08:37:58 MANAGER PERFORMANCE IMPROVEMENT CPT-15074 First Vx - Ix admin via ID IM or jet injects without counseling by physician 11:52:31 CDT CPT-50750 Fluzone Preservative Free Intramuscular Suspension 11:52 :31 CDT CPT-67892 Foot, left, comp min 3V - XRAY USE ONLY 09:24:54 CDT CPT-00543 Abd single AP View - XRAY USE ONLY 11:16:17 CDT CPT-80375 T spine AP/ Lat - XRAY USE ONLY 09:34:21 CDT CPT-62713 Chest 2V Frontal and Lat - XRAY USE ONLY 10:48:51 CDT CPT-04813 LS spine comp w obliq 13:28:00 MANAGER PERFORMANCE IMPROVEMENT CPT-J1040 Depo Medrol 80 mg (Methyl Prednisolone Acetate) 10:51: 28 MANAGER PERFORMANCE IMPROVEMENT CPT-J1100 Decadron 8mg (Dexamethasone) 10:51:28 MANAGER PERFORMANCE IMPROVEMENT CPT-88968 Abx/Therapy Injection 10:51:28 MANAGER PERFORMANCE IMPROVEMENT CPT-J1100 Decadron 8mg (Dexamethasone) 21:02:30 MANAGER PERFORMANCE IMPROVEMENT CPT-J1040 Depo Medrol 80 mg (Methyl Prednisolone Acetate) 21:02: 30 MANAGER PERFORMANCE IMPROVEMENT [id number] Event Monitor - MC Transmission 09:12:32 CDT 08/06 [id number] Event Monitor - MC review and interp 09:12:32 CDT [id number] Event Monitor - MC recording 09:12:32 CDT CPT-02163 EKG Trac and Interp 16:50:22 CDT CPT-J1030 Depo Medrol 40 mg (Methyl Prednisolone Acetate) 17:05: 54 CDT CPT-J1100 Decadron 4mg (Dexamethasone) 17:05:54 CDT CPT-67469 Abx/Therapy Injection 17:05:54 CDT CPT-J1100 Decadron 4mg (Dexamethasone) 16:55:28 CDT CPT-J1030 Depo Medrol 40 mg (Methyl Prednisolone Acetate) 16:55: 28 CDT CPT-51078 Ankle Complete - Min 3V 15:58:50 CDT CPT-88350 Knee 3V 15:58:50 CDT CPT-19058 Hip comp min 2V 15:58:50 CDT CPT-J2270 Morphine Sulfate 10 mg 14:25:44 MANAGER PERFORMANCE IMPROVEMENT CPT-J2550 Phenergan 12.5 mg (Promethazine) 14:25:44 MANAGER PERFORMANCE IMPROVEMENT CPT-59526 Abx/Therapy Injection 14:25:44 MANAGER PERFORMANCE IMPROVEMENT CPT-J2550 Phenergan 12.5 mg (Promethazine) 14:08:03 MANAGER PERFORMANCE IMPROVEMENT CPT-J2270 Morphine Sulfate 10 mg 14:08:03 MANAGER PERFORMANCE IMPROVEMENT CPT-39268 Bladder Scan 15:00:38 CDT CPT-TCMM Transitional Care Mgmt-Moderate 09:52:22 CDT CPT-J1030 Depo Medrol 40 mg (Methyl Prednisolone Acetate) 10:55: 18 CDT CPT-J1100 Decadron 4mg (Dexamethasone) 10:55:18 CDT CPT-09237 Abx/Therapy Injection 10:55:18 CDT CPT-J1030 Depo Medrol 40 mg (Methyl Prednisolone Acetate) 10:22: 32 CDT CPT-J1100 Decadron 4mg (Dexamethasone) 10:22:32 CDT CPT-19306 Postop F/U Visit 14:37:13 CDT CPT-55955 Ankle Complete - Min 3V 17:11:58 CDT CPT-77558 Foot comp min 3V 17:11:58 CDT CPT-76047 Bladder Scan 09:56:58 CDT CPT-72414 Postop F/U Visit 09:56:58 CDT CPT-13681 Cystoscopy 09:02:42 CDT CPT-93409 Bladder Scan 09:02:42 CDT CPT-41695 Abd single AP View 16:00:35 CDT CPT-16350 Administration single or combination vaccine inc oral 10 :15:43 CDT CPT-73516 Influenza split virus > age 3 10:15:43 CDT CPT-50342 Nail Avulsion 09:24:57 CDT CPT-OV Office Visit 11:15:41 CDT CPT-59087 Abx/Therapy Injection 10:51:30 CDT CPT-J3301 Kenalog 40 mg (Triamcinolone Acetonide) 10:25:12 CDT CPT-J1100 Decadron 4mg (Dexamethasone) 10:25:12 CDT CPT-25129 Anoscopy diagnostic 10:36:12 CDT CPT-OV Office Visit 15:34:31 CDT CPT-38397 Abx/Therapy Injection 08:21:15 [employer] CPT-J1885 Toradol 60 mg (Ketorolac) 10:46:35 [employer] CPT-OV Office Visit 19:51:16 [employer] CPT-61527 Spec Collection and Handling Fee 14:34:18 [employer] CPT-PV Prev. Care Visit 14:19:18 [employer]GER [employer] CPT-15236 Postop F/U Visit 14:47:51 [employer] CPT-19961 Postop F/U Visit 15:15:14 [employer] CPT-68913 Postop F/U Visit 14:41:43 CDT CPT-56275 Postop F/U Visit 15:47:46 CDT CPT-OV Office Visit 15:27:23 CDT CPT-OV Office Visit 17:20:34 CDT CPT-55547 Abx/Therapy Injection 15:05:57 CDT CPT-J1100 Decadron 8mg (Dexamethasone) 14:44:57 CDT CPT-J1040 Depo Medrol 80 mg (Methyl Prednisolone Acetate) 14:44: 57 CDT CPT-JTINJ Joint Injection 10:17:37 CDT CPT-11248 Administration 2+ single or combination vaccines inc oral 13:01:46 [employer] CPT-56345 Administration single or combination vaccine inc oral 13 :01:46 [employer]GER [employer] CPT-11843 Pneumovax 13:01:46 [employer]GER [employer] CPT-06159 Influenza split virus > age 3 13:01:46 [employer]GER [employer] CPT-06179 Administration single or combination vaccine inc oral 08 :56:49 CDT CPT-17457 Tdap 08:56:49 CDT
--- OUTSIDE RECORDS SUMMARY | 2017-03-22 00:37 | XMS REPORT | Clinical Summary ---
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 CHLORHEXIDINE GLUCONATE tongue and gums swollen Critical Active Hoa Kabaford [facility] NORFLEX Rash Critical Active Rowenaina Frazell WIRE HARNESS DESIGN ENGINEER TRAZODONE HCL sees things Critical Active [...] of 412 Active Hoa Otto [facility] Old myocardial infarction Pelvic pain 789.09 Resolved [...] Yolande Lindsay MD PhD URI ICD-465.9 Inactive Yoladne Lindsay MD PhD 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 Inactive [...] daily for 2 days end 02/05/17 PREDNISONE 11383638342 No Longer Active Gab Padron MD Active ZANTAC 150 MG ORAL TABLET 1 by mouth twice daily RANITIDINE HCL 08054761116 Active Gab Padron MD Active TRIAMCINOLONE ACETONIDE 0.1 % EXTERNAL CREAM Apply to affected area 3 times daily for up to 2 weeks TRIAMCINOLONE ACETONIDE 75465253781 Active Tishalena Lambert [employer]ARNESS DESIGN ENGINEER Active LISINOPRIL 40 MG ORAL TABLET 1 tablet by mouth daily LISINOPRIL 52146977652 Active Tisha Fausto [employer] HARNESS DESIGN ENGINEER Active IBUPROFEN 600 MG ORAL TABLET 1 tablet by mouth every 6 hours for 7 days, then 1 tablet every 6 hours as needed. Take with food IBUPROFEN 90916976406 No Longer Active Tisha Lambert W[employer] HARNESS DESIGN ENGINEER Active PREDNISONE 20 MG ORAL TABLET 1 tab twice daily for 3 day, then one daily for three days PREDNISONE 99755487094 No Longer Active Tisha Fausto WIRE HARNESS DESIGN ENGINEER Active TRIAMCINOLONE ACETONIDE 0.1 % EXTERNAL CREAM apply bid sparingly to rash 2014 TRIAMCINOLONE ACETONIDE 91650996624 No Longer Active Gab Padron MD Active TRAMADOL HCL 50 MG ORAL TABLET 1 tab po every 6 hrs prn pain 2016 TRAMADOL HCL 21813545390 No Longer Active Gab Padron MD Active BACTRIM DS 800-160 MG ORAL TABLET 1 tab by mouth twice daily 2016 TRIMETHOPRIM-SULFAMETHOXAZOLE 85868572089 No Longer Active Tisha Lambert APRN Active ADVAIR DISKUS 250-50 MCG/DOSE INHALATION AEROSOL POWDER BREATH ACTIVATED 1 puff BID FLUTICASONE-SALMETEROL 24883325768 No Longer Active Todd Callaway MD Active ONDANSETRON 4 MG ORAL TABLET DISINTEGRATING 1 q4h PRN nausea ONDANSETRON 12013356646 No Longer Active LONNIE Iglesias Active FISH OIL 1000 MG ORAL CAPSULE 3 pills daily OMEGA-3 FATTY ACIDS 60363306048 No Longer Active LONNIE Iglesias Active CETIRIZINE HCL 10 MG ORAL TABLET 1 po qd PRN Allergies CETIRIZINE HCL 07443251149 Active Gab Padron MD Active CLARITIN 10 MG ORAL TABLET 1 tablet by mouth daily as needed for allergies LORATADINE 26615549348 No Longer Active Gab Padron MD Active PREDNISONE 20 MG ORAL TABLET take 3 tabs daily for 3 days, 2 tabs daily for 3 days, 1 tab daily for 3 days, 1/2 tab daily for 3 days PREDNISONE 85222796067 No Longer Active Tisha Lambert APRN Active PREDNISONE 20 MG ORAL TABLET 2 tabs daily for 3 days, 1 tab daily for 3 days, 1/2 tab daily for 2 days PREDNISONE 49298668588 No Longer Active Gab Padron MD Active ZOFRAN ODT 4 MG ORAL TABLET DISINTEGRATING 1 po q6hr PRN Nausea ONDANSETRON 12457830661 Active Gab Padron MD Active BACTRIM DS 800-160 MG ORAL TABLET 1 tab by mouth twice daily 2015 TRIMETHOPRIM-SULFAMETHOXAZOLE 27444580249 No Longer Active Gab Padron MD Active LEVOTHYROXINE SODIUM 75 MCG ORAL TABLET Take 1 tab daily LEVOTHYROXINE SODIUM 61465366496 No Longer Active Mariana FLEMING Active SYNTHROID 88 MCG ORAL TABLET Take one by mouth daily LEVOTHYROXINE SODIUM 32497009730 Active iTsha Lambert APRN Active CHERATUSSIN AC 100-10 MG/5ML ORAL SYRUP 1 tsp by mouth every 4 hours as needed for cough GUAIFENESIN-CODEINE 36176497881 No Longer Active Gab Padron MD Active POLYTRIM 56930-5.1 UNIT/ML-% OPHTHALMIC SOLUTION 1 gtt to affected eye q3h x 7 days POLYMYXIN B-TRIMETHOPRIM 17480823789 No Longer Active Gab Padron MD Active FLUTICASONE PROPIONATE 50 MCG/ACT NASAL SUSPENSION 1 to 2 sprays each nostril daily FLUTICASONE PROPIONATE 80603572399 No Longer Active Gab Padron MD Active TRILEPTAL 600 MG ORAL TABLET Take one 1 tablet in Am and 1 tablet at night OXCARBAZEPINE 99915596451 Active Gab Padron MD Active CEFDINIR 300 MG ORAL CAPSULE 1 po BID x 10 days CEFDINIR 84811492538 No Longer Active Rodrigo Sarah APRN Active CEFTIN 500 MG ORAL TABLET 1 twice a day CEFUROXIME AXETIL 40040506402 No Longer Active Gab Padron MD Active AZITHROMYCIN 250 MG ORAL TABLET 2 po qd x 1 day, then 1 po qd x 4 days 03/11 AZITHROMYCIN 61219426131 No Longer Active Rodrigo Sarah APRN Active OXYCODONE HCL 5 MG ORAL CAPSULE 1 TAB PO Q HS OXYCODONE HCL 58875054073 No Longer Active Rodrigo Sarah APRN Active NIASPAN 500 MG ORAL TABLET EXTENDED RELEASE 1 pill nightly x 1 week, then 2 pills nightly x 1 week, then 3 pills nightly x 1 week, then 4 pills nightly NIACIN (ANTIHYPERLIPIDEMIC) 97616764440 No Longer Active Rodrigo Sarah APRN Active NIACIN 500 MG ORAL TABLET 1 pill by mouth nightly x 1 week, then 2 pills x 1 week, then 3 pills x 1 week, then 4 pills nightly - take after evening meal, with applesauce or an apple NIACIN 28007430477 No Longer Active Yolande Lindsay MD PhD Active FUROSEMIDE 20 MG ORAL TABLET 1 tablet by mouth daily FUROSEMIDE 52220458022 Active Gab Padron MD Active FUROSEMIDE 20 MG ORAL TABLET 1 pill by mouth daily, for edema FUROSEMIDE 99988146728 No Longer Active Yolande Lindsay MD PhD Active ATORVASTATIN CALCIUM 10 MG ORAL TABLET 1 pill by mouth daily, for cholesterol ATORVASTATIN CALCIUM 41240802717 Active Gab Padron MD Active CALCIUM 600+D PLUS MINERALS 600-400 MG-UNIT ORAL TABLET CHEWABLE 1 tab by mouth daily CALCIUM CARBONATE-VIT D-MIN 32817643447 No Longer Active Yolande Lindsay MD PhD Active CYCLOBENZAPRINE HCL 10 MG ORAL TABLET 1 tablet by mouth three times daily as needed for muscle spasm/pain CYCLOBENZAPRINE HCL 21449463264 Active Yolande Lindsay MD PhD Active ADULT ASPIRIN EC LOW STRENGTH 81 MG ORAL TABLET DELAYED RELEASE Take 1 tablet by mouth daily ASPIRIN 26335125175 No Longer Active Yolande Lindsay MD PhD Active ZOFRAN ODT 4 MG ORAL TABLET DISINTEGRATING 1 pill dissolved by mouth every 4 hours if needed for nausea ONDANSETRON 65896750933 No Longer Active Yolande Lindsay MD PhD Active CEFTIN 500 MG ORAL TABLET 1 twice a day CEFUROXIME AXETIL 69819077195 No Longer Active Yolande Lindsay MD PhD Active ALBUTEROL SULFATE (2.5 MG/3ML) 0.083% INHALATION NEBULIZATION SOLUTION one vial per nebulizer every 4-6 hours as needed ALBUTEROL SULFATE 11710867547 No Longer Active Alexis Ordaz MD Active DOXYCYCLINE HYCLATE 100 MG ORAL CAPSULE 1 cap by mouth twice daily DOXYCYCLINE HYCLATE 90354538398 No Longer Active Yolande Lindsay MD PhD Active CYCLOBENZAPRINE HCL 10 MG ORAL TABLET 1/2 - 1 tab by mouth three times daily if needed for spasms/pain CYCLOBENZAPRINE HCL 08359948612 No Longer Active Yolande Lindsay MD PhD Active AZITHROMYCIN 250 MG ORAL TABLET 2 pills on day 1, then 1 pill daily x 4 days AZITHROMYCIN 28551438007 No Longer Active Yolande Lindsay MD PhD Active XOPENEX 1.25 MG/3ML INHALATION NEBULIZATION SOLUTION 1 neb every 4 hours if needed for cough/congestion LEVALBUTEROL HCL 26440423448 No Longer Active Yolande Lindsay MD PhD Active DOXYCYCLINE HYCLATE 100 MG ORAL TABLET 1 tab twice a day for 14 days DOXYCYCLINE HYCLATE 10225649374 No Longer Active Yolande Lindsay MD PhD Active PREVACID 30 MG ORAL CAPSULE DELAYED RELEASE Take 1 tablet by mouth daily-PRN LANSOPRAZOLE 32671916310 No Longer Active Yolande Lindsay MD PhD Active PA VITAMIN D-3 2000 UNIT ORAL CAPSULE 1 CAP PO DAILY CHOLECALCIFEROL 41390581983 No Longer Active Yolande Lindsay MD PhD Active CEFDINIR 300 MG ORAL CAPSULE by mouth twice a day CEFDINIR 73691000882 No Longer Active Gab Padron MD Active TOPAMAX 50 MG ORAL TABLET 1 PO twice daily TOPIRAMATE 74781290554 Active Yolande Lindsay MD PhD Active AZITHROMYCIN 250 MG ORAL TABLET 2 po qd x 1 day, then 1 po qd x 4 days 03/02 AZITHROMYCIN 89349210232 No Longer Active Yolande Lindsay MD PhD Active DICLOFENAC SODIUM 75 MG ORAL TABLET DELAYED RELEASE 1 tablet by q 12 hours PRN headaches DICLOFENAC SODIUM 22195149230 No Longer Active Yolande Lindsay MD PhD Active FLONASE 50 MCG/ACT NASAL SUSPENSION 1 spray each nostril am and hs FLUTICASONE PROPIONATE 06923931928 No Longer Active Todd Callaway MD Active ANUSOL-HC 25 MG RECTAL SUPPOSITORY 1 rectally twice a day as needed for hemorrhoids HYDROCORTISONE JAYDEN (RECTAL) 85259140276 No Longer Active Yolande Lindsay MD PhD Active ANUSOL-HC 25 MG RECTAL SUPPOSITORY 1 suppository rectally each evening as needed for anal fissure HYDROCORTISONE JAYDEN (RECTAL) 42558967834 No Longer Active LONNIE Iglesias Active VALIUM 5 MG ORAL TABLET 1 po 30 minutes prior to your MRI DIAZEPAM 17633681705 No Longer Active LONNIE Iglesias Active METHOCARBAMOL 750 MG ORAL TABLET 1 PO QID PRN METHOCARBAMOL 44569816817 No Longer Active Daphne Wetzel APRN Active NITROSTAT 0.4 MG SUBLINGUAL TABLET SUBLINGUAL as directed NITROGLYCERIN 35930800019 No Longer Active Rodrigo Sarah APRN Active ROBAXIN-750 750 MG ORAL TABLET 2 four times a day for 3 days as needed for muscle spasm, then 1 four times a day as needed METHOCARBAMOL 74655024939 No Longer Active Rodrigo Sarah APRN Active HYDROCODONE-ACETAMINOPHEN 5-325 MG ORAL TABLET 1 q 4-6 hrs prn HYDROCODONE-ACETAMINOPHEN 51855302192 No Longer Active Rodrigo Sarah APRN Active VERAPAMIL HCL ER 180 MG ORAL TABLET EXTENDED RELEASE TAKE 1 TAB DAILY VERAPAMIL HCL 97992246034 No Longer Active Yolande Lindsay MD PhD Active BACTRIM DS 800-160 MG ORAL TABLET 1 tab by mouth twice daily 2010 TRIMETHOPRIM-SULFAMETHOXAZOLE 38171436502 No Longer Active Yolande Lindsay MD PhD Active NEXIUM 40 MG ORAL PACKET 1 by mouth daily ESOMEPRAZOLE MAGNESIUM 74179134477 No Longer Active Des Hines MD Active EPIPEN 2-CHARLETTE 0.3 MG/0.3ML INJECTION SOLUTION AUTO-INJECTOR as need for allergic reaction EPINEPHRINE 75537071526 Active Yolande Lindsay MD PhD Active NEXIUM 40 MG ORAL CAPSULE DELAYED RELEASE 1 PO Q D DAY ESOMEPRAZOLE MAGNESIUM 30486741209 No Longer Active Sadia Perry RN Active [...] hrs prn HYDROCODONE-ACETAMINOPHEN 5-325 MG ORAL TABLET 778856 HYDROCODONE- ACETAMINOPHEN Inactive ROBAXIN-750 750 MG ORAL TABLET 2 four times a day for 3 days as needed for muscle spasm, then 1 four times a day as needed ROBAXIN -750 750 MG ORAL TABLET 836672 METHOCARBAMOL Inactive NITROSTAT 0.4 MG SUBLINGUAL TABLET SUBLINGUAL as directed NITROSTAT 0.4 MG SUBLINGUAL TABLET SUBLINGUAL 170281 NITROGLYCERIN Inactive METHOCARBAMOL 750 MG ORAL TABLET 1 PO QID PRN METHOCARBAMOL 750 MG ORAL TABLET 683871 METHOCARBAMOL Inactive VALIUM 5 MG ORAL TABLET 1 po 30 minutes prior to your MRI VALIUM 5 MG ORAL TABLET 571817 DIAZEPAM Inactive ANUSOL-HC 25 MG RECTAL SUPPOSITORY 1 suppository rectally each evening as needed for anal fissure ANUSOL-HC 25 MG RECTAL SUPPOSITORY 6886403 HYDROCORTISONE JAYDEN (RECTAL) Inactive ANUSOL-HC 25 MG RECTAL SUPPOSITORY 1 rectally twice a day as needed for hemorrhoids ANUSOL-HC 25 MG RECTAL SUPPOSITORY 2714848 HYDROCORTISONE JAYDEN (RECTAL) Inactive FLONASE 50 MCG/ACT NASAL SUSPENSION 1 spray each nostril am and hs 2012/11/ 14 FLONASE 50 MCG/ACT NASAL SUSPENSION 5795768 FLUTICASONE PROPIONATE Inactive DICLOFENAC SODIUM 75 MG ORAL TABLET DELAYED RELEASE 1 tablet by q 12 hours PRN headaches DICLOFENAC SODIUM 75 MG ORAL TABLET DELAYED RELEASE 843447 DICLOFENAC SODIUM Inactive PA VITAMIN D-3 2000 UNIT ORAL CAPSULE 1 CAP PO DAILY PA VITAMIN D-3 2000 UNIT ORAL CAPSULE CHOLECALCIFEROL Inactive PREVACID 30 MG ORAL CAPSULE DELAYED RELEASE Take 1 tablet by mouth daily-PRN PREVACID 30 MG ORAL CAPSULE DELAYED RELEASE 676554 LANSOPRAZOLE Inactive DOXYCYCLINE HYCLATE 100 MG ORAL TABLET 1 tab twice a day for 14 days DOXYCYCLINE HYCLATE 100 MG ORAL TABLET 7104108 DOXYCYCLINE HYCLATE Inactive XOPENEX 1.25 MG/3ML INHALATION NEBULIZATION SOLUTION 1 neb every 4 hours if needed for cough/congestion XOPENEX 1.25 MG/3ML INHALATION NEBULIZATION SOLUTION 117686 LEVALBUTEROL HCL Inactive CYCLOBENZAPRINE HCL 10 MG ORAL TABLET 1/2 - 1 tab by mouth three times daily if needed for spasms/pain CYCLOBENZAPRINE HCL 10 MG ORAL TABLET 532607 CYCLOBENZAPRINE HCL Inactive ALBUTEROL SULFATE (2.5 MG/3ML) 0.083% INHALATION NEBULIZATION SOLUTION one vial per nebulizer every 4-6 hours as needed ALBUTEROL SULFATE ( 2.5 MG/3ML) 0.083% INHALATION NEBULIZATION SOLUTION 140304 ALBUTEROL SULFATE Inactive CEFTIN 500 MG ORAL TABLET 1 twice a day CEFTIN 500 MG ORAL TABLET 194010 CEFUROXIME AXETIL Inactive ZOFRAN ODT 4 MG ORAL TABLET DISINTEGRATING 1 pill dissolved by mouth every 4 hours if needed for nausea ZOFRAN ODT 4 MG ORAL TABLET DISINTEGRATING 975292 ONDANSETRON Inactive ADULT ASPIRIN EC LOW STRENGTH 81 MG ORAL TABLET DELAYED RELEASE Take 1 tablet by mouth daily ADULT ASPIRIN EC LOW STRENGTH 81 MG ORAL TABLET DELAYED RELEASE 960386 ASPIRIN Inactive CALCIUM 600+D PLUS MINERALS 600-400 [...] an apple NIACIN 500 MG ORAL TABLET 432321 NIACIN Inactive NIASPAN 500 MG ORAL TABLET EXTENDED RELEASE 1 pill nightly x 1 week, then 2 pills nightly x 1 week, then 3 pills nightly x 1 week, then 4 pills nightly NIASPAN 500 MG ORAL TABLET EXTENDED RELEASE NIACIN ( ANTIHYPERLIPIDEMIC) Inactive OXYCODONE HCL 5 MG ORAL CAPSULE 1 TAB PO Q HS OXYCODONE HCL 5 MG ORAL CAPSULE 1254961 OXYCODONE HCL Inactive FLUTICASONE PROPIONATE 50 MCG/ACT NASAL SUSPENSION 1 to 2 sprays each nostril daily FLUTICASONE PROPIONATE 50 MCG/ACT NASAL SUSPENSION 3585081 FLUTICASONE PROPIONATE Inactive POLYTRIM 38117-2.1 UNIT/ML-% OPHTHALMIC SOLUTION 1 gtt to affected eye q3h x 7 days POLYTRIM 53974-7.1 UNIT/ML-% OPHTHALMIC SOLUTION 351602 POLYMYXIN B-TRIMETHOPRIM Inactive CHERATUSSIN AC 100-10 MG/5ML ORAL SYRUP 1 tsp by mouth every 4 hours as needed for cough CHERATUSSIN AC 100-10 MG/5ML ORAL SYRUP 163438 GUAIFENESIN-CODEINE Inactive LEVOTHYROXINE SODIUM 75 MCG ORAL TABLET Take 1 tab daily LEVOTHYROXINE SODIUM 75 MCG ORAL TABLET 138866 LEVOTHYROXINE SODIUM Inactive CLARITIN 10 MG ORAL TABLET 1 tablet by mouth daily as needed for allergies CLARITIN 10 MG ORAL TABLET 525943 LORATADINE Inactive FISH OIL 1000 MG ORAL CAPSULE 3 pills daily FISH OIL 1000 MG ORAL CAPSULE OMEGA-3 FATTY ACIDS Inactive ONDANSETRON 4 MG ORAL TABLET DISINTEGRATING 1 q4h PRN nausea ONDANSETRON 4 MG ORAL TABLET DISINTEGRATING 358439 ONDANSETRON Inactive ADVAIR DISKUS 250-50 MCG/DOSE INHALATION AEROSOL POWDER BREATH ACTIVATED 1 puff BID ADVAIR DISKUS 250-50 MCG/DOSE INHALATION AEROSOL POWDER BREATH ACTIVATED FLUTICASONE-SALMETEROL Inactive TRAMADOL HCL 50 MG ORAL TABLET 1 tab po every 6 hrs prn pain 2016 TRAMADOL HCL 50 MG ORAL TABLET 010285 TRAMADOL HCL Inactive TRIAMCINOLONE ACETONIDE 0.1 % EXTERNAL CREAM apply bid sparingly to rash 2014 TRIAMCINOLONE ACETONIDE 0.1 % EXTERNAL CREAM 8304686 TRIAMCINOLONE ACETONIDE Inactive PREDNISONE 20 MG ORAL TABLET 1 tab twice daily for 3 day, then one daily for three days PREDNISONE 20 MG ORAL TABLET 846592 PREDNISONE Inactive IBUPROFEN 600 MG ORAL TABLET 1 tablet by mouth every 6 hours for 7 days, then 1 tablet every 6 hours as needed. Take with food IBUPROFEN 600 MG ORAL TABLET 140801 IBUPROFEN Inactive BACTRIM DS 800-160 MG ORAL TABLET 1 tab by mouth twice daily 2010 BACTRIM DS 800-160 MG ORAL TABLET 122759 TRIMETHOPRIM- SULFAMETHOXAZOLE Inactive AZITHROMYCIN 250 MG ORAL TABLET 2 po qd x 1 day, then 1 po qd x 4 days 03/02 AZITHROMYCIN 250 MG ORAL TABLET 258726 AZITHROMYCIN Inactive CEFDINIR 300 MG ORAL CAPSULE by mouth twice a day CEFDINIR 300 MG ORAL CAPSULE 700834 CEFDINIR Inactive AZITHROMYCIN 250 MG ORAL TABLET 2 pills on day 1, then 1 pill daily x 4 days AZITHROMYCIN 250 MG ORAL TABLET 137216 AZITHROMYCIN Inactive DOXYCYCLINE HYCLATE 100 MG ORAL CAPSULE 1 cap by mouth twice daily DOXYCYCLINE HYCLATE 100 MG ORAL CAPSULE 9883172 DOXYCYCLINE HYCLATE Inactive FUROSEMIDE 20 MG ORAL TABLET 1 pill by mouth daily, for edema FUROSEMIDE 20 MG ORAL TABLET 876041 FUROSEMIDE Inactive AZITHROMYCIN 250 MG ORAL TABLET 2 po qd x 1 day, then 1 po qd x 4 days 03/11 AZITHROMYCIN 250 MG ORAL TABLET 687016 AZITHROMYCIN Inactive CEFTIN 500 MG ORAL TABLET 1 twice a day CEFTIN 500 MG ORAL TABLET 448393 CEFUROXIME AXETIL Inactive CEFDINIR 300 MG ORAL CAPSULE 1 po BID x 10 days CEFDINIR 300 MG ORAL CAPSULE 179325 CEFDINIR Inactive BACTRIM DS 800-160 MG ORAL TABLET 1 tab by mouth twice daily 2015 BACTRIM DS 800-160 MG ORAL TABLET 140235 TRIMETHOPRIM- SULFAMETHOXAZOLE Inactive PREDNISONE 20 MG ORAL TABLET 2 tabs daily for 3 days, 1 tab daily for 3 days, 1/2 tab daily for 2 days PREDNISONE 20 MG ORAL TABLET 181756 PREDNISONE Inactive PREDNISONE 20 MG ORAL TABLET take 3 tabs daily for 3 days, 2 tabs daily for 3 days, 1 tab daily for 3 days, 1/2 tab daily for 3 days PREDNISONE 20 MG ORAL TABLET 328404 PREDNISONE Inactive BACTRIM DS 800-160 MG ORAL TABLET 1 tab by mouth twice daily 2016 BACTRIM DS 800-160 MG ORAL TABLET 559145 TRIMETHOPRIM- SULFAMETHOXAZOLE Inactive PREDNISONE 20 MG ORAL TABLET 2 tabs daily for 3 days, 1 tab daily for 3 days, 1/2 tab daily for 2 days end 02/05/17 PREDNISONE 20 MG ORAL TABLET 210594 PREDNISONE Inactive Immunizations Vaccine Administration Date Value Standard Description Seasonal influenza vaccine, injectable, containing preservative, for > 3 years old (Afluria, FluLaval, Fluzone, Fluvirin, Fluarix, Agriflu(>=18 yo)) Fluzone (>3 yrs.) [SOW708] Influenza, seasonal, injectable influenza immunization (Flu Vax) has been administered Influenza - Unspecified Formulation [CVX88] influenza virus vaccine, unspecified formulation pneumococcal immunization administered Pneumovax 23 [CVX33] pneumococcal polysaccharide vaccine, 23 valent Seasonal influenza vaccine, injectable, containing preservative, for > 3 years old (Afluria, FluLaval, Fluzone, Fluvirin, Fluarix, Agriflu(>=18 yo)) Fluzone (>3 yrs.) [PLW512] Influenza, seasonal, injectable dT (Diphtheria and Tetanus) booster given given Td(adult) unspecified formulation Boostrix (Tetanus toxoid, reduced diphtheria toxoid and acellular pertussis vaccine, adsorbed), booster Boostrix [GHN166] tetanus toxoid, reduced diphtheria toxoid, and acellular [...] PANEL - Chemistry cholesterol, serum 166 mg/dL 271-821 7121/12/06 triglyceride, serum, fasting 86 mg/dL 30-200 HDL [...] negative Encounters Code Encounter Date Provider Facility CPT-18302 Level 3 Est. Patient 17:32:14 CDT Gab Padron MD [facility] CPT-20623 Level 3 Est. Patient 10:28:15 CDT Tisha Lambert [facility] CPT-09884 Level 3 Est. Patient 14:50:29 CDT Gab Padron MD [facility] CPT-70725 Level 3 Est. Patient 14:46:09 CDT Tisha Lambert [facility] CPT-26724 Level 4 New Patient 16:13:15 CDT Todd Callaway MD [facility] CPT-43511 Level 4 Est. Patient 13:18:33 CDT Gab Padron MD [facility] CPT-36140 Level 3 Est. Patient 15:20:50 CDT Jared Og MD [facility] CPT-37956 Level 3 Est. Patient 17:43:55 HOME CARE RN Gab Padron MD [facility] CPT-35349 Level 3 Est. Patient 17:07:49 HOME CARE RN Jared Og MD [facility] CPT-52574 Level 4 Est. Patient 19:55:18 HOME CARE RN Jared Og MD [facility] CPT-56550 Level 3 Est. Patient 20:13:34 HOME CARE RN Jared Og MD [facility] CPT-60882 Level 4 Est. Patient 16:31:27 CDT Gab Padron MD [facility] CPT-92431 Level 2 Est. Patient 12:23:38 CDT Jared Og MD [facility] CPT-08322 Level 3 Est. Patient 11:01:51 CDT Gab Padron MD [facility] CPT-05091 Level 3 Est. Patient 15:27:02 CDT Jared Og MD [facility] CPT-99207 Level 4 Est. Patient 09:25:27 CDT Gab Padron MD [facility] CPT-05538 Level 3 Est. Patient 10:29:41 CDT Rodrigo Sarah [facility] CPT-55570 Level 4 Est. Patient 17:51:05 CDT Gab Padron MD [facility] CPT-45626 Level 3 Est. Patient 14:18:08 CDT Gab Padron MD [facility] CPT-50904 Level 4 Est. Patient 10:18:54 CDT Gab Padron MD [facility] CPT-88786 Level 3 Est. Patient 11:30:07 CDT Rodrigo Sarah [facility] CPT-16636 Level 4 Est. Patient 21:02:30 HOME CARE RN Gab Padron MD [facility] CPT-55283 Level 3 Est. Patient 11:02:19 HOME CARE RN Gab Padron MD [facility] CPT-31616 Level 4 Est. Patient 22:24:31 HOME CARE RN Gab Padron MD [facility] CPT-82229 Level 3 Est. Patient 18:33:46 HOME CARE RN Gab Padron MD [facility]-99577 Level 3 Est. Patient 16:19:11 CDT Yolande Lindsay MD [facility]-21749 Level 3 Est. Patient 18:59:14 CDT Yolande Lindsay MD [facility]-21604 Level 4 Est. Patient 21:29:26 CDT Yolande Lindsay MD [facility]-46707 Level 3 Est. Patient 07:37:45 CDT Yolande Lindsay MD [facility]-65813 Level 3 Est. Patient 17:03:46 CDT Yolande Lindsay MD [facility]-95128 Level 4 Est. Patient 20:02:13 HOME CARE RN Yolande Lindsay MD [facility]-55245 Level 3 Est. Patient 16:02:07 HOME CARE RN Alexis Ordaz MD [facility]-53204 Level 3 Est. Patient 12:41:24 HOME CARE RN Yolande Lindsay MD [facility]-72414 Level 3 Est. Patient 15:41:20 HOME CARE RN Yolande Lindsay MD [facility]-70275 Level 3 Est. Patient 13:20:02 HOME CARE RN Yolande Lindsay MD [facility]-84434 Level 3 Est. Patient 15:00:38 CDT Jared Og MD [facility]-68019 Level 3 Est. Patient 10:22:32 CDT Yolande Lindsay MD [facility]-09211 Level 3 Est. Patient 17:12:58 CDT Yolande Lindsay MD [facility]-58531 Level 4 Est. Patient 13:30:58 CDT Yolande Lindsay MD [facility]-32656 Level 4 New Patient 09:02:42 CDT Jared Og MD [facility]-56130 Level 3 Est. Patient 08:19:07 CDT Yolande Lindsay MD [facility]-11443 Level 3 Est. Patient 12:00:13 HOME CARE RN Gab Padron MD [facility]-93350 Level 3 Est. Patient 16:15:23 HOME CARE RN Yolande Lindsay MD [facility]-63640 Level 2 Est. Patient 19:47:15 CDT Yolande Lindsay MD [facility]-63795 Level 3 Est. Patient 21:38:31 CDT Yolande Lindsay MD [facility]-18845 Level 3 Est. Patient 10:25:12 CDT Adiel PERAZA [facility] CPT-00492 Level 4 Est. Patient 10:51:58 CDT Yolande Lindsay MD [facility] CPT-46692 Level 3 Est. Patient 14:04:55 HOME CARE RN Rodrigo Sarah [facility]-61217 Level 3 Est. Patient 10:46:35 HOME CARE RN Rodrigo Sarah [facility] CPT-32046 Level 3 Est. Patient 14:24:37 HOME CARE RN Yolande Lindsay MD [facility]-44033 Level 3 Est. Patient 17:41:58 HOME CARE RN Yolande Lindsay MD [facility]-49058 Level 2 Est. Patient 22:01:41 HOME CARE RN Rodrigo Sarah [facility]-90423 Level 2 Est. Patient 22:01:11 HOME CARE RN Rodrigo Sarah [facility]-24281 Level 3 Est. Patient 10:12:29 HOME CARE RN Rodrigo Sarah APRN [facility] CPT-78440 Level 3 Est. Patient 11:05:44 CDT Alexis Ordaz MD [facility] CPT-50912 Level 3 Est. Patient 14:57:20 CDT Yolande Lindsay MD [facility] CPT-16455 Level 3 Est. Patient 14:40:57 CDT Yolande Lindsay MD [facility] CPT-90150 Level 3 Est. Patient 20:55:40 CDT Yolande Lindsay MD [facility] CPT-81331 Level 3 Est. Patient 12:42:38 HOME CARE RN Yolande Lindsay MD [facility] CPT-43169 Level 3 Est. Patient 11:54:49 HOME CARE RN Des Hines MD [facility] CPT-70901 Level 3 Est. Patient 17:06:38 CDT Dewayne PERAZA [facility] Procedures Code Procedure Name Date Entry Date Standard Description CPT-33655 First Vx - Ix admin via ID IM or jet injects without counseling by physician 13:08:42 HOME CARE RN CPT-48734 Fluzone Quadrivalent Intramuscular Suspension 0.5 ML 13: 08:42 HOME CARE RN CPT-J2930 Solu Medrol 125 mg (Methyl Prednisolone Sodium Succinate) 13:19:02 CDT CPT-96102 Abx/Therapy Injection 13:19:02 CDT CPT-J2930 Solu Medrol 125 mg (Methyl Prednisolone Sodium Succinate) 13:05:03 CDT CPT-21263 Hip, complete, 2-3 views - XRAY USE ONLY 17:19:04 HOME CARE RN CPT-62197 Venipuncture Draw Fee 08:37:59 HOME CARE RN CPT-13572 Liver Profile - LAB USE ONLY 08:37:59 HOME CARE RN CPT-31206 Lipid - LAB USE ONLY 08:37:58 HOME CARE RN CPT-58462 First Vx - Ix admin via ID IM or jet injects without counseling by physician 11:52:31 CDT CPT-40323 Fluzone Preservative Free Intramuscular Suspension 11:52 :31 CDT CPT-90883 Foot, left, comp min 3V - XRAY USE ONLY 09:24:54 CDT CPT-50632 Abd single AP View - XRAY USE ONLY 11:16:17 CDT CPT-54451 T spine AP/ Lat - XRAY USE ONLY 09:34:21 CDT CPT-17793 Chest 2V Frontal and Lat - XRAY USE ONLY 10:48:51 CDT CPT-78391 LS spine comp w obliq 13:28:00 HOME CARE RN CPT-J1040 Depo Medrol 80 mg (Methyl Prednisolone Acetate) 10:51: 28 HOME CARE RN CPT-J1100 Decadron 8mg (Dexamethasone) 10:51:28 HOME CARE RN CPT-89765 Abx/Therapy Injection 10:51:28 HOME CARE RN CPT-J1100 Decadron 8mg (Dexamethasone) 21:02:30 HOME CARE RN CPT-J1040 Depo Medrol 80 mg (Methyl Prednisolone Acetate) 21:02: 30 HOME CARE RN [id number] Event Monitor - MC Transmission 09:12:32 CDT 08/06 [id number] Event Monitor - MC review and interp 09:12:32 CDT [id number] Event Monitor - MC recording 09:12:32 CDT CPT-80330 EKG Trac and Interp 16:50:22 CDT CPT-J1030 Depo Medrol 40 mg (Methyl Prednisolone Acetate) 17:05: 54 CDT CPT-J1100 Decadron 4mg (Dexamethasone) 17:05:54 CDT CPT-47041 Abx/Therapy Injection 17:05:54 CDT CPT-J1100 Decadron 4mg (Dexamethasone) 16:55:28 CDT CPT-J1030 Depo Medrol 40 mg (Methyl Prednisolone Acetate) 16:55: 28 CDT CPT-11365 Ankle Complete - Min 3V 15:58:50 CDT CPT-70597 Knee 3V 15:58:50 CDT CPT-35793 Hip comp min 2V 15:58:50 CDT CPT-J2270 Morphine Sulfate 10 mg 14:25:44 HOME CARE RN CPT-J2550 Phenergan 12.5 mg (Promethazine) 14:25:44 HOME CARE RN CPT-01377 Abx/Therapy Injection 14:25:44 HOME CARE RN CPT-J2550 Phenergan 12.5 mg (Promethazine) 14:08:03 HOME CARE RN CPT-J2270 Morphine Sulfate 10 mg 14:08:03 HOME CARE RN CPT-12334 Bladder Scan 15:00:38 CDT CPT-TCMM Transitional Care Mgmt-Moderate 09:52:22 CDT CPT-J1030 Depo Medrol 40 mg (Methyl Prednisolone Acetate) 10:55: 18 CDT CPT-J1100 Decadron 4mg (Dexamethasone) 10:55:18 CDT CPT-99376 Abx/Therapy Injection 10:55:18 CDT CPT-J1030 Depo Medrol 40 mg (Methyl Prednisolone Acetate) 10:22: 32 CDT CPT-J1100 Decadron 4mg (Dexamethasone) 10:22:32 CDT CPT-07742 Postop F/U Visit 14:37:13 CDT CPT-26843 Ankle Complete - Min 3V 17:11:58 CDT CPT-05176 Foot comp min 3V 17:11:58 CDT CPT-82075 Bladder Scan 09:56:58 CDT CPT-75761 Postop F/U Visit 09:56:58 CDT CPT-86660 Cystoscopy 09:02:42 CDT CPT-46861 Bladder Scan 09:02:42 CDT CPT-95121 Abd single AP View 16:00:35 CDT CPT-91103 Administration single or combination vaccine inc oral 10 :15:43 CDT CPT-71111 Influenza split virus > age 3 10:15:43 CDT CPT-87608 Nail Avulsion 09:24:57 CDT CPT-OV Office Visit 11:15:41 CDT CPT-34737 Abx/Therapy Injection 10:51:30 CDT CPT-J3301 Kenalog 40 mg (Triamcinolone Acetonide) 10:25:12 CDT CPT-J1100 Decadron 4mg (Dexamethasone) 10:25:12 CDT CPT-62492 Anoscopy diagnostic 10:36:12 CDT CPT-OV Office Visit 15:34:31 CDT CPT-68433 Abx/Therapy Injection 08:21:15 HOME CARE RN CPT-J1885 Toradol 60 mg (Ketorolac) 10:46:35 HOME CARE RN CPT-OV Office Visit 19:51:16 HOME CARE RN CPT-99854 Spec Collection and Handling Fee 14:34:18 HOME CARE RN CPT-PV Prev. Care Visit 14:19:18 HOME CARE RN CPT-22090 Postop F/U Visit 14:47:51 HOME CARE RN CPT-22651 Postop F/U Visit 15:15:14 HOME CARE RN CPT-92125 Postop F/U Visit 14:41:43 CDT CPT-69036 Postop F/U Visit 15:47:46 CDT CPT-OV Office Visit 15:27:23 CDT CPT-OV Office Visit 17:20:34 CDT CPT-95376 Abx/Therapy Injection 15:05:57 CDT CPT-J1100 Decadron 8mg (Dexamethasone) 14:44:57 CDT CPT-J1040 Depo Medrol 80 mg (Methyl Prednisolone Acetate) 14:44: 57 CDT CPT-JTINJ Joint Injection 10:17:37 CDT CPT-71859 Administration 2+ single or combination vaccines inc oral 13:01:46 HOME CARE RN CPT-37516 Administration single or combination vaccine inc oral 13 :01:46 HOME CARE RN CPT-12484 Pneumovax 13:01:46 HOME CARE RN CPT-38174 Influenza split virus > age 3 13:01:46 HOME CARE RN CPT-90220 Administration single or combination vaccine inc oral 08 :56:49 CDT CPT-40466 Tdap 08:56:49 CDT
--- OUTSIDE RECORDS SUMMARY | 2017-03-22 00:40 | XMS REPORT | Clinical Summary ---
Author Author Admin, MARGRET Organization [employer] Address Unknown Phone Unavailable Allergies, Adverse Reactions, Alerts Allergy Name Reaction Description Start Date Severity Status Provider VALENTIN Critical Active Rodrigo Montemayorl STUDENT SERVICES DIRECTOR CHLORHEXIDINE GLUCONATE tongue and gums swollen Critical Active Hoa Kabaford RMA NORFLEX Rash Critical Active Silvestrellina Frazell STUDENT SERVICES DIRECTOR TRAZODONE HCL sees things Critical Active [...] pain, left lower quadrant HEMATOCHEZIA 578.1 Resolved Yloande Lindsay MD PhD Blood in stool HEMORRHOIDS, [...] infarction, hx of 412 Active Hoa Otto [facility] Old myocardial infarction Pelvic pain 789.09 Active Yolande Lindsay MD PhD Abdominal pain, other specified site; multiple sites Edema 782.3 Active Yolande Lindsay MD PhD Edema Rash 782.1 Active Yolande Lindsay MD PhD Rash and other nonspecific skin eruption Back pain, lumbar 724.2 Active Gab Padron MD Lumbago Cough 786.2 Active Jillina Tyrel STUDENT SERVICES DIRECTOR Cough 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 Jillina Frazellilian STUDENT SERVICES DIRECTOR 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 Anemia 285.9 Active Gab Padron MD Anemia, unspecified Conjunctivitis 372.30 Active Jillina Tyrel STUDENT SERVICES DIRECTOR Conjunctivitis, unspecified Sinusitis 473.9 Active Jillina Frazell STUDENT SERVICES DIRECTOR Unspecified sinusitis (chronic) Nonspecific syndrome suggestive of viral illness 079.99 Active Rodrigo Sarah APRN Unspecified viral infection Laryngitis 464.00 Active Jillina Tyrel STUDENT SERVICES DIRECTOR Acute laryngitis without mention of obstruction [...] mass in breast Renal mass 593.9 Active Jaerd Og MD Unspecified disorder of kidney and [...] every 6 hrs prn pain TRAMADOL HCL 38844052729 Active Gab Padron MD Active PREDNISONE 20 MG TAB 2 tabs daily for 3 days, 1 tab daily for 3 days, 1/2 tab daily for 2 days PREDNISONE 72619441876 No Longer Active Gab Padron MD Active ZOFRAN ODT 4 MG TBDP 1 po q6hr PRN Nausea ONDANSETRON 03204100724 Active Gab Padron MD Active IBUPROFEN 600 MG TAB 1 tablet by mouth every 6 hours for 7 days, then 1 tablet every 6 hours as needed. Take with food IBUPROFEN 83737527544 Active Jillina Frazell STUDENT SERVICES DIRECTOR Active BACTRIM DS 800-160 MG TAB 1 tab by mouth twice daily TRIMETHOPRIM-SULFAMETHOXAZOLE 01491348253 No Longer Active Gab Padron MD Active ADVAIR DISKUS 250-50 MCG/DOSE AEPB 1 puff BID FLUTICASONE- SALMETEROL 50865461669 Active Silvestrellnacho Sarah APRN Active LEVOTHYROXINE SODIUM 75 MCG TABS Take 1 tab daily LEVOTHYROXINE SODIUM 77176470674 No Longer Active Mariana Cuadra [facility] Active SYNTHROID 88 MCG ORAL TABS Take one by mouth daily LEVOTHYROXINE SODIUM 32304969172 Active Gab Padron MD Active CHERATUSSIN AC 100-10 MG/5ML SYRP 1 tsp by mouth every 4 hours as needed for cough GUAIFENESIN-CODEINE 69253033147 No Longer Active Gab Padron MD Active POLYTRIM 44489-5.1 UNIT/ML-% SOLN 1 gtt to affected eye q3h x 7 days POLYMYXIN B-TRIMETHOPRIM 50523070096 No Longer Active Gab Padron MD Active FLUTICASONE PROPIONATE 50 MCG/ACT SUSP 1 to 2 sprays each nostril daily 04/21 FLUTICASONE PROPIONATE 55496137996 No Longer Active Gab Padron MD Active TRILEPTAL 600 MG TABS Take one 1 tablet in Am and 1 tablet at night OXCARBAZEPINE 97185610720 Active Gab Padron MD Active CEFDINIR 300 MG CAPS 1 po BID x 10 days CEFDINIR 90830430501 No Longer Active Rodrigo Sarah APRN Active CEFTIN 500 MG TAB 1 twice a day CEFUROXIME AXETIL 06974086215 No Longer Active Gab Padron MD Active AZITHROMYCIN 250 MG TABS 2 po qd x 1 day, then 1 po qd x 4 days AZITHROMYCIN 65523489004 No Longer Active Rodrigo Sarah APRN Active CLARITIN 10 MG TAB 1 tablet by mouth daily as needed for allergies LORATADINE 20385516951 Active Rodrigo Sarah APRN Active OXYCODONE HCL 5 MG ORAL CAPS 1 TAB PO Q HS OXYCODONE HCL 76227137175 No Longer Active Rodrigo Sarah APRN Active NIASPAN 500 MG ORAL CR-TABS 1 pill nightly x 1 week, then 2 pills nightly x 1 week, then 3 pills nightly x 1 week, then 4 pills nightly NIACIN (ANTIHYPERLIPIDEMIC) 47871145117 No Longer Active Rodrigo Sarah APRN Active NIACIN 500 MG TABS 1 pill by mouth nightly x 1 week, then 2 pills x 1 week, then 3 pills x 1 week, then 4 pills nightly - take after evening meal, with applesauce or an apple NIACIN 38057631506 No Longer Active Yolande Lindsay MD PhD Active FISH OIL 1000 MG CAPS 3 pills daily OMEGA-3 FATTY ACIDS 95441645067 Active Yolande Lindsay MD PhD Active TRIAMCINOLONE ACETONIDE 0.1 % CREA apply bid sparingly to rash TRIAMCINOLONE ACETONIDE 77708846582 Active Yolande Lindsay MD PhD Active FUROSEMIDE 20 MG TAB 1 tablet by mouth daily FUROSEMIDE 15559829729 Active Tisha Lambert APRN Active LISINOPRIL 20 MG ORAL TABS 1 tab by mouth daily LISINOPRIL 49377179303 Active Tisha Lambert APRN Active FUROSEMIDE 20 MG TABS 1 pill by mouth daily, for edema FUROSEMIDE 70953484828 No Longer Active Yolande Lindsay MD PhD Active ATORVASTATIN CALCIUM 10 MG TABS 1 pill by mouth daily, for cholesterol 09/06 ATORVASTATIN CALCIUM 55425053401 Active Gab Padron MD Active CALCIUM 600+D PLUS MINERALS 600-400 MG-UNIT ORAL CHEW 1 tab by mouth daily CALCIUM CARBONATE-VIT D-MIN 20291888024 No Longer Active Yolande Lindsay MD PhD Active CYCLOBENZAPRINE HCL 10 MG TABS 1 tablet by mouth three times daily as needed for muscle spasm/pain CYCLOBENZAPRINE HCL 63169580404 Active Yolande Lindsay MD PhD Active ONDANSETRON 4 MG TBDP 1 q4h PRN nausea ONDANSETRON 10962602716 Active Yolande Lindsay MD PhD Active ADULT ASPIRIN EC LOW STRENGTH 81 MG TBEC Take 1 tablet by mouth daily 2014 ASPIRIN 00898250631 No Longer Active Yolande Lindsay MD PhD Active ZOFRAN ODT 4 MG TBDP 1 pill dissolved by mouth every 4 hours if needed for nausea ONDANSETRON 67767807369 No Longer Active Yolande Lindsay MD PhD Active CEFTIN 500 MG TAB 1 twice a day CEFUROXIME AXETIL 82042858818 No Longer Active Yolande Lindsay MD PhD Active ALBUTEROL SULFATE 0.083 % NEBU SOLN one vial per nebulizer every 4-6 hours as needed ALBUTEROL SULFATE 32211253415 No Longer Active Alexis Ordaz MD Active DOXYCYCLINE HYCLATE 100 MG CAP 1 cap by mouth twice daily DOXYCYCLINE HYCLATE 34177311678 No Longer Active Yolande Lindsay MD PhD Active CYCLOBENZAPRINE HCL 10 MG TABS 1/2 - 1 tab by mouth three times daily if needed for spasms/pain CYCLOBENZAPRINE HCL 45336322353 No Longer Active Yolande Lindsay MD PhD Active AZITHROMYCIN 250 MG TABS 2 pills on day 1, then 1 pill daily x 4 days AZITHROMYCIN 88666632951 No Longer Active Yolande Lindsay MD PhD Active XOPENEX 1.25 MG/3ML NEBU 1 neb every 4 hours if needed for cough/congestion LEVALBUTEROL HCL 60000480837 No Longer Active Yolande Lindsay MD PhD Active DOXYCYCLINE HYCLATE 100 MG TAB 1 tab twice a day for 14 days 2013 DOXYCYCLINE HYCLATE 84952859054 No Longer Active Yolande Lindsay MD PhD Active PREVACID 30 MG CPDR Take 1 tablet by mouth daily-PRN LANSOPRAZOLE 68018735572 No Longer Active Yolande Lindsay MD PhD Active PA VITAMIN D-3 2000 UNIT CAPS 1 CAP PO DAILY CHOLECALCIFEROL 00335664300 No Longer Active Yolande Lindsay MD PhD Active CEFDINIR 300 MG CAPS by mouth twice a day CEFDINIR 66547058544 No Longer Active Gab Padron MD Active TOPAMAX 50 MG TABS 1 PO twice daily TOPIRAMATE 73511257617 Active Yolande Lindsay MD PhD Active AZITHROMYCIN 250 MG TABS 2 po qd x 1 day, then 1 po qd x 4 days AZITHROMYCIN 99472996102 No Longer Active Yolande Lindsay MD PhD Active DICLOFENAC SODIUM 75 MG TBEC 1 tablet by q 12 hours PRN headaches DICLOFENAC SODIUM 70877601820 No Longer Active Yolande Lindsay MD PhD Active FLONASE 50 MCG/ACT SUSP 1 spray each nostril am and hs FLUTICASONE PROPIONATE 53309111933 No Longer Active Todd Callaway MD Active ANUSOL-HC 25 MG SUPPOSITORY 1 rectally twice a day as needed for hemorrhoids HYDROCORTISONE JAYDEN (RECTAL) 20034549275 No Longer Active Yolande Lindsay MD PhD Active ANUSOL-HC 25 MG SUPPOSITORY 1 suppository rectally each evening as needed for anal fissure HYDROCORTISONE JAYDEN (RECTAL) 42807450257 No Longer Active LockneyLONNIE Collazo Active VALIUM 5 MG TAB 1 po 30 minutes prior to your MRI DIAZEPAM 06748765975 No Longer Active Bozena LONNIE Coleman Active METHOCARBAMOL 750 MG TABS 1 PO QID PRN METHOCARBAMOL 65811762785 No Longer Active Daphne Wetzel STUDENT SERVICES DIRECTOR Active NITROSTAT 0.4 MG SUBL as directed NITROGLYCERIN 04367148782 No Longer Active Rodrigo Sarah STUDENT SERVICES DIRECTOR Active ROBAXIN-750 750 MG TABS 2 four times a day for 3 days as needed for muscle spasm, then 1 four times a day as needed METHOCARBAMOL 35867831294 No Longer Active Rodrigo Sarah APRN Active HYDROCODONE-ACETAMINOPHEN 5-325 MG TABS 1 q 4-6 hrs prn HYDROCODONE-ACETAMINOPHEN 68165389221 No Longer Active Rodrigo Sarah APRN Active VERAPAMIL HCL CR 180 MG CR-TABS TAKE 1 TAB DAILY VERAPAMIL HCL 81374381674 No Longer Active Yolande Lindsay MD PhD Active BACTRIM DS 800-160 MG TAB 1 tab by mouth twice daily TRIMETHOPRIM-SULFAMETHOXAZOLE 05702310260 No Longer Active Yolande Lindsay MD PhD Active NEXIUM 40 MG PACK 1 by mouth daily ESOMEPRAZOLE MAGNESIUM 10128958699 No Longer Active Des Hines MD Active EPIPEN 2-CHARLETTE 0.3 MG/0.3ML OMARI as need for allergic reaction EPINEPHRINE 92486252556 Active Yolande Lindsay MD PhD Active NEXIUM 40 MG CPDR 1 PO Q D DAY ESOMEPRAZOLE MAGNESIUM 75268452078 No Longer Active Sadia Perry RN Active NEXIUM 40 MG PACK 1 by mouth daily NEXIUM 40 MG PACK ESOMEPRAZOLE MAGNESIUM Inactive VERAPAMIL HCL CR 180 MG CR-TABS TAKE 1 TAB DAILY VERAPAMIL HCL CR 180 MG CR-TABS VERAPAMIL HCL Inactive HYDROCODONE-ACETAMINOPHEN 5-325 MG TABS 1 q 4-6 hrs prn HYDROCODONE-ACETAMINOPHEN 5-325 MG TABS 520483 HYDROCODONE-ACETAMINOPHEN Inactive ROBAXIN-750 750 MG TABS 2 four times a day for 3 days as needed for muscle spasm, then 1 four times a day as needed ROBAXIN-750 750 MG TABS 099473 METHOCARBAMOL Inactive NITROSTAT 0.4 MG SUBL as directed NITROSTAT 0.4 MG SUBL 200010 NITROGLYCERIN Inactive METHOCARBAMOL 750 MG TABS 1 PO QID PRN METHOCARBAMOL 750 MG TABS 259711 METHOCARBAMOL Inactive VALIUM 5 MG TAB 1 po 30 minutes prior to your MRI VALIUM 5 MG TAB 545554 DIAZEPAM Inactive ANUSOL-HC 25 MG SUPPOSITORY 1 suppository rectally each evening as needed for anal fissure ANUSOL-HC 25 MG SUPPOSITORY 7835288 HYDROCORTISONE JAYDEN (RECTAL) Inactive ANUSOL-HC 25 MG SUPPOSITORY 1 rectally twice a day as needed for hemorrhoids ANUSOL-HC 25 MG SUPPOSITORY 6890311 HYDROCORTISONE JAYDEN (RECTAL) Inactive FLONASE 50 MCG/ACT SUSP 1 spray each nostril am and hs FLONASE 50 MCG/ACT SUSP FLUTICASONE PROPIONATE Inactive DICLOFENAC SODIUM 75 MG TBEC 1 tablet by q 12 hours PRN headaches DICLOFENAC SODIUM 75 MG TBEC 855045 DICLOFENAC SODIUM Inactive PA VITAMIN D-3 2000 UNIT CAPS 1 CAP PO DAILY PA VITAMIN D-3 2000 UNIT CAPS CHOLECALCIFEROL Inactive PREVACID 30 MG CPDR Take 1 tablet by mouth daily-PRN PREVACID 30 MG CPDR 358786 LANSOPRAZOLE Inactive DOXYCYCLINE HYCLATE 100 MG TAB 1 tab twice a day for 14 days 2013 DOXYCYCLINE HYCLATE 100 MG TAB 2120401 DOXYCYCLINE HYCLATE Inactive XOPENEX 1.25 MG/3ML NEBU 1 neb every 4 hours if needed for cough/congestion XOPENEX 1.25 MG/3ML NEBU 796531 LEVALBUTEROL HCL Inactive CYCLOBENZAPRINE HCL 10 MG TABS 1/2 - 1 tab by mouth three times daily if needed for spasms/pain CYCLOBENZAPRINE HCL 10 MG TABS 890135 CYCLOBENZAPRINE HCL Inactive ALBUTEROL SULFATE 0.083 % NEBU SOLN one vial per nebulizer every 4-6 hours as needed ALBUTEROL SULFATE 0.083 % NEBU SOLN 711025 ALBUTEROL SULFATE Inactive CEFTIN 500 MG TAB 1 twice a day CEFTIN 500 MG TAB 027090 CEFUROXIME AXETIL Inactive ZOFRAN ODT 4 MG TBDP 1 pill dissolved by mouth every 4 hours if needed for nausea ZOFRAN ODT 4 MG TBDP 777982 ONDANSETRON Inactive ADULT ASPIRIN EC LOW STRENGTH 81 MG TBEC Take 1 tablet by mouth daily 2014 ADULT ASPIRIN EC LOW STRENGTH 81 MG TBEC 058647 ASPIRIN Inactive CALCIUM 600+D PLUS MINERALS 600-400 [...] or an apple NIACIN 500 MG TABS 115758 NIACIN Inactive NIASPAN 500 MG ORAL CR-TABS 1 pill nightly x 1 week, then 2 pills nightly x 1 week, then 3 pills nightly x 1 week, then 4 pills nightly NIASPAN 500 MG ORAL CR-TABS NIACIN (ANTIHYPERLIPIDEMIC) Inactive OXYCODONE HCL 5 MG ORAL CAPS 1 TAB PO Q HS OXYCODONE HCL 5 MG ORAL CAPS 1297216 OXYCODONE HCL Inactive FLUTICASONE PROPIONATE 50 MCG/ACT SUSP 1 to 2 sprays each nostril daily 04/21 FLUTICASONE PROPIONATE 50 MCG/ACT SUSP 7287949 FLUTICASONE PROPIONATE Inactive POLYTRIM 63209-2.1 UNIT/ML-% SOLN 1 gtt to affected eye q3h x 7 days POLYTRIM 85745-2.1 UNIT/ML-% SOLN 966685 POLYMYXIN B- TRIMETHOPRIM Inactive CHERATUSSIN AC 100-10 MG/5ML SYRP 1 tsp by mouth every 4 hours as needed for cough CHERATUSSIN AC 100-10 MG/5ML SYRP 740932 GUAIFENESIN-CODEINE Inactive LEVOTHYROXINE SODIUM 75 MCG TABS Take 1 tab daily LEVOTHYROXINE SODIUM 75 MCG TABS 295352 LEVOTHYROXINE SODIUM Inactive BACTRIM DS 800-160 MG TAB 1 tab by mouth twice daily BACTRIM DS 800-160 MG TAB 836376 TRIMETHOPRIM-SULFAMETHOXAZOLE Inactive AZITHROMYCIN 250 MG TABS 2 po qd x 1 day, then 1 po qd x 4 days AZITHROMYCIN 250 MG TABS 7037003 AZITHROMYCIN Inactive CEFDINIR 300 MG CAPS by mouth twice a day CEFDINIR 300 MG CAPS 285593 CEFDINIR Inactive AZITHROMYCIN 250 MG TABS 2 pills on day 1, then 1 pill daily x 4 days AZITHROMYCIN 250 MG TABS 5081670 AZITHROMYCIN Inactive DOXYCYCLINE HYCLATE 100 MG CAP 1 cap by mouth twice daily DOXYCYCLINE HYCLATE 100 MG CAP 0986545 DOXYCYCLINE HYCLATE Inactive FUROSEMIDE 20 MG TABS 1 pill by mouth daily, for edema FUROSEMIDE 20 MG TABS 410910 FUROSEMIDE Inactive AZITHROMYCIN 250 MG TABS 2 po qd x 1 day, then 1 po qd x 4 days AZITHROMYCIN 250 MG TABS 4494090 AZITHROMYCIN Inactive CEFTIN 500 MG TAB 1 twice a day CEFTIN 500 MG TAB 413394 CEFUROXIME AXETIL Inactive CEFDINIR 300 MG CAPS 1 po BID x 10 days CEFDINIR 300 MG CAPS 120324 CEFDINIR Inactive BACTRIM DS 800-160 MG TAB 1 tab by mouth twice daily BACTRIM DS 800-160 MG TAB 219765 TRIMETHOPRIM-SULFAMETHOXAZOLE Inactive PREDNISONE 20 MG TAB 2 tabs daily for 3 days, 1 tab daily for 3 days, 1/2 tab daily for 2 days PREDNISONE 20 MG TAB 602942 PREDNISONE Inactive Immunizations Vaccine Administration Date Value Standard Description Seasonal influenza vaccine, injectable, containing preservative, for > 3 years old (Afluria, FluLaval, Fluzone, Fluvirin, Fluarix, Agriflu(>=18 yo)) Fluzone (>3 yrs.) [[id number]] Influenza, seasonal, injectable influenza immunization (Flu Vax) has been administered Influenza - Unspecified Formulation [CVX88] influenza virus vaccine, unspecified formulation Seasonal influenza vaccine, injectable, containing preservative, for > 3 years old (Afluria, FluLaval, Fluzone, Fluvirin, Fluarix, Agriflu(>=18 yo)) Fluzone (>3 yrs.) [[id number]] Influenza, seasonal, injectable pneumococcal immunization administered Pneumovax 23 [CVX33] pneumococcal polysaccharide vaccine, 23 valent dT (Diphtheria and Tetanus) booster given given Td(adult) unspecified formulation Boostrix (Tetanus toxoid, reduced diphtheria toxoid and acellular pertussis vaccine, adsorbed), booster Boostrix [RQU958] tetanus toxoid, reduced diphtheria toxoid, and acellular [...] Panel - Chemistry sodium, serum 142 mmol/L 414-763 8479/06/30 potassium, serum 4.4 mmol/L 3.5-5.2 chloride, serum [...] Rate - Chemistry sodium, serum 139 mmol/L 074-351 7050/03/24 carbon dioxide, venous blood 22.4 mmol/L 21.0-32.0 [...] ... - Chemistry sodium, serum 143 mmol/L 977-438 1092/05/02 carbon dioxide, venous blood 25.6 mmol/L 21.0-32.0 [...] PANEL - Chemistry cholesterol, serum 166 mg/dL 002-608 8379/12/06 triglyceride, serum, fasting 86 mg/dL 30-200 HDL [...] Negative mg/dL Negative sodium, serum 142 mmol/L 192-997 5830/07/18 carbon dioxide, venous blood 27.8 mmol/L 21.0-32.0 [...] negative Encounters Code Encounter Date Provider Facility CPT-75402 Level 3 Est. 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 Patient 17:07:49 SALES AND MARKETING VICE PRESIDENT Jared Og MD [facility] CPT-28448 Level 4 Est. Patient 19:55:18 SALES AND MARKETING VICE PRESIDENT Jared Og MD [facility] CPT-58118 Level 3 Est. Patient 20:13:34 SALES AND MARKETING VICE PRESIDENT Jared Og MD [facility] CPT-56336 Level 4 Est. Patient 16:31:27 CDT Gab Padron MD [facility] CPT-57398 Level 2 Est. Patient 12:23:38 CDT Jared Og MD [facility] CPT-09926 Level 3 Est. Patient 11:01:51 CDT Gab Padron MD [facility] CPT-69085 Level 3 Est. Patient 15:27:02 CDT Jared Og MD [facility] [place] CPT-01364 Level 4 Est. Patient 09:25:27 CDT Gab Padron MD [facility] CPT-57217 Level 3 Est. Patient 10:29:41 CDT Rodrigo Sarah [facility] CPT-42503 Level 4 Est. Patient 17:51:05 CDT Gab Padron MD [facility] CPT-33503 Level 3 Est. Patient 14:18:08 CDT Gab Padron MD [facility] CPT-50029 Level 4 Est. Patient 10:18:54 CDT Gab Padron MD [facility] CPT-83552 Level 3 Est. Patient 11:30:07 CDT Rodrigo Sarah [facility] CPT-27128 Level 4 Est. 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 Patient 11:02:19 SALES AND MARKETING VICE PRESIDENT Gab Padron MD [facility] named [facility]-48966 Level 4 Est. Patient 22:24:31 SALES AND MARKETING VICE PRESIDENT Gba Padron MD [facility] named [facility]-57619 Level 3 Est. Patient 18:33:46 SALES AND MARKETING VICE PRESIDENT Gab Padron MD [facility] named [facility]-53811 Level 3 Est. Patient 16:19:11 CDT Yolande Lindsay MD [facility]-24129 Level 3 Est. Patient 18:59:14 CDT Yolande Lindsay MD [facility]-35850 Level 4 Est. Patient 21:29:26 CDT Yolande Lindsay MD [facility]-85402 Level 3 Est. Patient 07:37:45 CDT Yolande Lindsay MD [facility]-38909 Level 3 Est. Patient 17:03:46 CDT Yolande Lindsay MD [facility]-63735 Level 4 Est. Patient 20:02:13 SALES AND MARKETING VICE PRESIDENT Yolande Lindsay MD [facility]-28453 Level 3 Est. Patient 16:02:07 SALES AND MARKETING VICE PRESIDENT Alexis Ordaz MD Former[facility] named [facility]-71432 Level 3 Est. Patient 12:41:24 SALES AND MARKETING VICE PRESIDENT Yolande Lindsay MD [facility]-33256 Level 3 Est. Patient 15:41:20 SALES AND MARKETING VICE PRESIDENT Yolande Lindsay MD [facility]-71889 Level 3 Est. Patient 13:20:02 SALES AND MARKETING VICE PRESIDENT Yolande Lindsay MD [facility]-31402 Level 3 Est. Patient 15:00:38 CDT Jared Og MD [facility]-24816 Level 3 Est. Patient 10:22:32 CDT Yolande Lindsay MD [facility] CPT-74766 Level 3 Est. Patient 17:12:58 CDT Yolande Lindsay MD [facility]-20953 Level 4 Est. Patient 13:30:58 CDT Yolande Lindsay MD [facility]-50004 Level 4 New Patient 09:02:42 CDT Jared Og MD [facility]-56336 Level 3 Est. Patient 08:19:07 CDT Yolande Lindsay MD [facility] CPT-08496 Level 3 Est. 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 Patient 16:15:23 SALES AND MARKETING VICE PRESIDENT Yolande Lindsay MD [facility]-71285 Level 2 Est. Patient 19:47:15 CDT Yolande Lindsay MD [facility] CPT-94608 Level 3 Est. Patient 21:38:31 CDT Yolande Lindsay MD [facility]-08276 Level 3 Est. Patient 10:25:12 CDT Adiel PERAZA [facility] CPT-73158 Level 4 Est. Patient 10:51:58 CDT Yolande Lindsay MD [facility] CPT-91764 Level 3 Est. Patient 14:04:55 SALES AND MARKETING VICE PRESIDENT Rodrigo Sarah [facility] CPT-31750 Level 3 Est. Patient 10:46:35 SALES AND MARKETING VICE PRESIDENT Rodrigo Sarah [facility] CPT-92456 Level 3 Est. Patient 14:24:37 SALES AND MARKETING VICE PRESIDENT Yolande Lindsay MD [facility]-48717 Level 3 Est. Patient 17:41:58 SALES AND MARKETING VICE PRESIDENT Yolande Lindsay MD [facility]-04188 Level 2 Est. Patient 22:01:41 SALES AND MARKETING VICE PRESIDENT Silvestrebernabe Sarah [facility] CPT-59827 Level 2 Est. Patient 22:01:11 SALES AND MARKETING VICE PRESIDENT Silvestrebernabe Sarah [facility] CPT-31239 Level 3 Est. Patient 10:12:29 SALES AND MARKETING VICE PRESIDENT Rodrigo Sarah [facility] CPT-38609 Level 3 Est. Patient 11:05:44 CDT Alexis Ordaz MD [facility] CPT-14278 Level 3 Est. Patient 14:57:20 CDT Yolande Lindsay MD [facility] CPT-67704 Level 3 Est. Patient 14:40:57 CDT Yolande Lindsay MD [facility] CPT-86460 Level 3 Est. Patient 20:55:40 CDT Yolande Lindsay MD [facility] CPT-27364 Level 3 Est. Patient 12:42:38 SALES AND MARKETING VICE PRESIDENT Yolande Lindsay MD [facility] CPT-55123 Level 3 Est. Patient 11:54:49 SALES AND MARKETING VICE PRESIDENT Des Hines MD [facility] CPT-52142 Level 3 Est. Patient 17:06:38 CDT Dewayne PERAZA [facility] Procedures Code Procedure Name Date Entry Date Standard Description CPT-10030 Hip, complete, 2-3 views - XRAY USE ONLY 17:19:04 SALES AND MARKETING VICE PRESIDENT CPT-90386 Venipuncture Draw Fee 08:37:59 SALES AND MARKETING VICE PRESIDENT CPT-52807 Liver Profile - LAB USE ONLY 08:37:59 SALES AND MARKETING VICE PRESIDENT CPT-28352 Lipid - LAB USE ONLY 08:37:58 SALES AND MARKETING VICE PRESIDENT CPT-04118 First Vx - Ix admin via ID IM or jet injects without counseling by physician 11:52:31 CDT CPT-16003 Fluzone Preservative Free Intramuscular Suspension 11:52 :31 CDT CPT-51375 Foot, left, comp min 3V - XRAY USE ONLY 09:24:54 CDT CPT-83572 Abd single AP View - XRAY USE ONLY 11:16:17 CDT CPT-78758 T spine AP/ Lat - XRAY USE ONLY 09:34:21 CDT CPT-28225 Chest 2V Frontal and Lat - XRAY USE ONLY 10:48:51 CDT CPT-72252 LS spine comp w obliq 13:28:00 SALES AND MARKETING VICE PRESIDENT CPT-J1040 Depo Medrol 80 mg (Methyl Prednisolone Acetate) 10:51: 28 SALES AND MARKETING VICE PRESIDENT CPT-J1100 Decadron 8mg (Dexamethasone) 10:51:28 SALES AND MARKETING VICE PRESIDENT CPT-66148 Abx/Therapy Injection 10:51:28 SALES AND MARKETING VICE PRESIDENT CPT-J1100 Decadron 8mg (Dexamethasone) 21:02:30 SALES AND MARKETING VICE PRESIDENT CPT-J1040 Depo Medrol 80 mg (Methyl Prednisolone Acetate) 21:02: 30 SALES AND MARKETING VICE PRESIDENT [id number] Event Monitor - MC Transmission 09:12:32 CDT 08/06 [id number] Event Monitor - MC review and interp 09:12:32 CDT [id number] Event Monitor - MC recording 09:12:32 CDT CPT-52297 EKG Trac and Interp 16:50:22 CDT CPT-J1030 Depo Medrol 40 mg (Methyl Prednisolone Acetate) 17:05: 54 CDT CPT-J1100 Decadron 4mg (Dexamethasone) 17:05:54 CDT CPT-85443 Abx/Therapy Injection 17:05:54 CDT CPT-J1100 Decadron 4mg (Dexamethasone) 16:55:28 CDT CPT-J1030 Depo Medrol 40 mg (Methyl Prednisolone Acetate) 16:55: 28 CDT CPT-63999 Ankle Complete - Min 3V 15:58:50 CDT CPT-07741 Knee 3V 15:58:50 CDT CPT-83950 Hip comp min 2V 15:58:50 CDT CPT-J2270 Morphine Sulfate 10 mg 14:25:44 SALES AND MARKETING VICE PRESIDENT CPT-J2550 Phenergan 12.5 mg (Promethazine) 14:25:44 [employer] CPT-49971 Abx/Therapy Injection 14:25:44 [employer]IDENT CPT-J2550 Phenergan 12.5 mg (Promethazine) 14:08:03 [employer] PRESIDENT CPT-J2270 Morphine Sulfate 10 mg 14:08:03 [employer] PRESIDENT CPT-06277 Bladder Scan 15:00:38 CDT CPT-TCMM Transitional Care Mgmt-Moderate 09:52:22 CDT CPT-J1030 Depo Medrol 40 mg (Methyl Prednisolone Acetate) 10:55: 18 CDT CPT-J1100 Decadron 4mg (Dexamethasone) 10:55:18 CDT CPT-18436 Abx/Therapy Injection 10:55:18 CDT CPT-J1030 Depo Medrol 40 mg (Methyl Prednisolone Acetate) 10:22: 32 CDT CPT-J1100 Decadron 4mg (Dexamethasone) 10:22:32 CDT CPT-71625 Postop F/U Visit 14:37:13 CDT CPT-04339 Ankle Complete - Min 3V 17:11:58 CDT CPT-75608 Foot comp min 3V 17:11:58 CDT CPT-00913 Bladder Scan 09:56:58 CDT CPT-48106 Postop F/U Visit 09:56:58 CDT CPT-59886 Cystoscopy 09:02:42 CDT CPT-79145 Bladder Scan 09:02:42 CDT CPT-93374 Abd single AP View 16:00:35 CDT CPT-15938 Administration single or combination vaccine inc oral 10 :15:43 CDT CPT-28127 Influenza split virus > age 3 10:15:43 CDT CPT-42847 Nail Avulsion 09:24:57 CDT CPT-OV Office Visit 11:15:41 CDT CPT-14784 Abx/Therapy Injection 10:51:30 CDT CPT-J3301 Kenalog 40 mg (Triamcinolone Acetonide) 10:25:12 CDT CPT-J1100 Decadron 4mg (Dexamethasone) 10:25:12 CDT CPT-60480 Anoscopy diagnostic 10:36:12 CDT CPT-OV Office Visit 15:34:31 CDT CPT-82637 Abx/Therapy Injection 08:21:15 [employer] PRESIDENT CPT-J1885 Toradol 60 mg (Ketorolac) 10:46:35 [employer] PRESIDENT CPT-OV Office Visit 19:51:16 [employer]ICE PRESIDENT CPT-06105 Spec Collection and Handling Fee 14:34:18 [employer]ICE PRESIDENT CPT-PV Prev. Care Visit 14:19:18 [employer]ICE PRESIDENT CPT-22217 Postop F/U Visit 14:47:51 [employer]IDENT CPT-88257 Postop F/U Visit 15:15:14 [employer]IDENT CPT-00336 Postop F/U Visit 14:41:43 CDT CPT-03924 Postop F/U Visit 15:47:46 CDT CPT-OV Office Visit 15:27:23 CDT CPT-OV Office Visit 17:20:34 CDT CPT-64144 Abx/Therapy Injection 15:05:57 CDT CPT-J1100 Decadron 8mg (Dexamethasone) 14:44:57 CDT CPT-J1040 Depo Medrol 80 mg (Methyl Prednisolone Acetate) 14:44: 57 CDT CPT-JTINJ Joint Injection 10:17:37 CDT CPT-38331 Administration 2+ single or combination vaccines inc oral 13:01:46 [employer] PRESIDENT CPT-97568 Administration single or combination vaccine inc oral 13 :01:46 [employer] PRESIDENT CPT-34459 Pneumovax 13:01:46 [employer] PRESIDENT CPT-40000 Influenza split virus > age 3 13:01:46 [employer]ICE PRESIDENT CPT-44717 Administration single or combination vaccine inc oral 08 :56:49 CDT [facility]-88525 Tdap 08:56:49 CDT
--- OUTSIDE RECORDS SUMMARY | 2017-03-22 00:43 | XMS REPORT | Clinical Summary ---
Author Author Admin, E Organization [facility] Address Unknown Phone Unavailable Allergies, Adverse Reactions, Alerts Allergy Name Reaction Description Start Date Severity Status Provider VALENTIN Critical Active Rodrigo Fracharlottel WASHING MACHINE ASSEMBLER CHLORHEXIDINE GLUCONATE tongue and gums swollen Critical Active Hoa Otto RMA NORFLEX Rash Critical Active Silvestrellina Frazell WASHING MACHINE ASSEMBLER TRAZODONE HCL sees things Critical Active Dewayne [...] MD Lumbago Cough 786.2 Active Jillina Tyrel WASHING MACHINE ASSEMBLER Cough 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 Jillina Frazellilian WASHING MACHINE ASSEMBLER 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 Anemia 285.9 Active Gab Padron MD Anemia, unspecified Conjunctivitis 372.30 Active Jillnacho Sarah APRN Conjunctivitis, unspecified Sinusitis 473.9 Active Silvestrellina Frazell WASHING MACHINE ASSEMBLER Unspecified sinusitis (chronic) Nonspecific syndrome suggestive of viral illness 079.99 Active Jillina Frazell WASHING MACHINE ASSEMBLER Unspecified viral infection Laryngitis 464.00 Active Jillina Frazell WASHING MACHINE ASSEMBLER Acute laryngitis without mention of obstruction Abdominal [...] Flank pain, left 789.09 Active Jillina Frazell WASHING MACHINE ASSEMBLER Abdominal pain, other specified site; multiple sites Abdominal pain, generalized 789.07 Active Jillina Farshadzell WASHING MACHINE ASSEMBLER Abdominal pain, generalized Back pain, thoracic region, left 724.1 Active Jillina Frazell WASHING MACHINE ASSEMBLER Pain in thoracic spine Abdominal pain, left [...] 1/2 tab daily for 2 days PREDNISONE 47830851086 No Longer Active Gab Padron MD Active ZOFRAN ODT 4 MG TBDP 1 po q6hr PRN Nausea ONDANSETRON 44058150385 Active Silvestrellina Tyrel GAUTAM Active IBUPROFEN 600 MG TAB 1 tablet by mouth every 6 hours for 7 days, then 1 tablet every 6 hours as needed. Take with food IBUPROFEN 56882538566 Active Jillina Frazell DAIN Active BACTRIM DS 800-160 MG TAB 1 tab by mouth twice daily TRIMETHOPRIM-SULFAMETHOXAZOLE 28107404017 No Longer Active Gab Padron MD Active ADVAIR DISKUS 250-50 MCG/DOSE AEPB 1 puff BID FLUTICASONE- SALMETEROL 96026251799 Active Rodrigo Sarah APRN Active LEVOTHYROXINE SODIUM 75 MCG TABS Take 1 tab daily LEVOTHYROXINE SODIUM 16874850834 No Longer Active Mariana HICKEYA Active SYNTHROID 88 MCG ORAL TABS Take one by mouth daily LEVOTHYROXINE SODIUM 02153202727 Active Mariana HICKEYA Active CHERATUSSIN AC 100-10 MG/5ML SYRP 1 tsp by mouth every 4 hours as needed for cough GUAIFENESIN-CODEINE 75852803769 No Longer Active Gab Padron MD Active POLYTRIM 96403-6.1 UNIT/ML-% SOLN 1 gtt to affected eye q3h x 7 days POLYMYXIN B-TRIMETHOPRIM 15616727010 No Longer Active Gab Padron MD Active FLUTICASONE PROPIONATE 50 MCG/ACT SUSP 1 to 2 sprays each nostril daily 04/21 FLUTICASONE PROPIONATE 22872173325 No Longer Active Gab Padron MD Active TRILEPTAL 600 MG TABS Take one 1 tablet in Am and 1 tablet at night OXCARBAZEPINE 97282695455 Active Gab Padron MD Active CEFDINIR 300 MG CAPS 1 po BID x 10 days CEFDINIR 38729691025 No Longer Active Rodrigo Sarah APRN Active CEFTIN 500 MG TAB 1 twice a day CEFUROXIME AXETIL 11207121522 No Longer Active Gab Padron MD Active AZITHROMYCIN 250 MG TABS 2 po qd x 1 day, then 1 po qd x 4 days AZITHROMYCIN 70652273121 No Longer Active Silvestrellnacho Sarah APRN Active CLARITIN 10 MG TAB 1 tablet by mouth daily as needed for allergies LORATADINE 26064719306 Active Silvestrellnacho Sarah APRN Active OXYCODONE HCL 5 MG ORAL CAPS 1 TAB PO Q HS OXYCODONE HCL 53722813312 No Longer Active Rodrigo Sarah APRN Active NIASPAN 500 MG ORAL CR-TABS 1 pill nightly x 1 week, then 2 pills nightly x 1 week, then 3 pills nightly x 1 week, then 4 pills nightly NIACIN (ANTIHYPERLIPIDEMIC) 83811589919 No Longer Active Silvestrebernabe Yenhossein WASHING MACHINE ASSEMBLER Active NIACIN 500 MG TABS 1 pill by mouth nightly x 1 week, then 2 pills x 1 week, then 3 pills x 1 week, then 4 pills nightly - take after evening meal, with applesauce or an apple NIACIN 21194594976 No Longer Active Yolande Lindsay MD PhD Active FISH OIL 1000 MG CAPS 3 pills daily OMEGA-3 FATTY ACIDS 89307735954 Active Yolande Lindsay MD PhD Active TRIAMCINOLONE ACETONIDE 0.1 % CREA apply bid sparingly to rash TRIAMCINOLONE ACETONIDE 04799466875 Active Yolande Lindsay MD PhD Active FUROSEMIDE 20 MG TAB 1 tablet by mouth daily FUROSEMIDE 05295176194 Active Tisha Lambert APRN Active LISINOPRIL 20 MG ORAL TABS 1 tab by mouth daily LISINOPRIL 23816232270 Active Gab Padron MD Active FUROSEMIDE 20 MG TABS 1 pill by mouth daily, for edema FUROSEMIDE 51405546148 No Longer Active Yolande Lindsay MD PhD Active ATORVASTATIN CALCIUM 10 MG TABS 1 pill by mouth daily, for cholesterol 09/06 ATORVASTATIN CALCIUM 00929016425 Active Gab Padron MD Active CALCIUM 600+D PLUS MINERALS 600-400 MG-UNIT ORAL CHEW 1 tab by mouth daily CALCIUM CARBONATE-VIT D-MIN 94411069494 No Longer Active Yolande Lindsay MD PhD Active CYCLOBENZAPRINE HCL 10 MG TABS 1 tablet by mouth three times daily as needed for muscle spasm/pain CYCLOBENZAPRINE HCL 05899697279 Active Yolande Lindsay MD PhD Active ONDANSETRON 4 MG TBDP 1 q4h PRN nausea ONDANSETRON 20938468581 Active Yolande Lindsay MD PhD Active ADULT ASPIRIN EC LOW STRENGTH 81 MG TBEC Take 1 tablet by mouth daily 2014 ASPIRIN 74036091299 No Longer Active Yolande Lindsay MD PhD Active ZOFRAN ODT 4 MG TBDP 1 pill dissolved by mouth every 4 hours if needed for nausea ONDANSETRON 82287600457 No Longer Active Yolande Lindsay MD PhD Active CEFTIN 500 MG TAB 1 twice a day CEFUROXIME AXETIL 72872249249 No Longer Active Yolande Lindsay MD PhD Active ALBUTEROL SULFATE 0.083 % NEBU SOLN one vial per nebulizer every 4-6 hours as needed ALBUTEROL SULFATE 80375523267 No Longer Active Alexis Ordaz MD Active DOXYCYCLINE HYCLATE 100 MG CAP 1 cap by mouth twice daily DOXYCYCLINE HYCLATE 25942421595 No Longer Active Yolande Lindsay MD PhD Active CYCLOBENZAPRINE HCL 10 MG TABS 1/2 - 1 tab by mouth three times daily if needed for spasms/pain CYCLOBENZAPRINE HCL 33223777197 No Longer Active Yolande Lindsay MD PhD Active AZITHROMYCIN 250 MG TABS 2 pills on day 1, then 1 pill daily x 4 days AZITHROMYCIN 96171944169 No Longer Active Yolande Lindsay MD PhD Active XOPENEX 1.25 MG/3ML NEBU 1 neb every 4 hours if needed for cough/congestion LEVALBUTEROL HCL 06562870280 No Longer Active Yolande Lindsay MD PhD Active DOXYCYCLINE HYCLATE 100 MG TAB 1 tab twice a day for 14 days 2013 DOXYCYCLINE HYCLATE 70224804186 No Longer Active Yolande Lindsay MD PhD Active PREVACID 30 MG CPDR Take 1 tablet by mouth daily-PRN LANSOPRAZOLE 86421295772 No Longer Active Yolande Lindsay MD PhD Active PA VITAMIN D-3 2000 UNIT CAPS 1 CAP PO DAILY CHOLECALCIFEROL 82552652635 No Longer Active Yolande Lindsay MD PhD Active CEFDINIR 300 MG CAPS by mouth twice a day CEFDINIR 11691010467 No Longer Active Gab Padron MD Active TOPAMAX 50 MG TABS 1 PO twice daily TOPIRAMATE 01491290742 Active Yolande Lindsay MD PhD Active AZITHROMYCIN 250 MG TABS 2 po qd x 1 day, then 1 po qd x 4 days AZITHROMYCIN 03679817946 No Longer Active Yolande Lindsay MD PhD Active DICLOFENAC SODIUM 75 MG TBEC 1 tablet by q 12 hours PRN headaches DICLOFENAC SODIUM 37468234197 No Longer Active Yolande Lindsay MD PhD Active FLONASE 50 MCG/ACT SUSP 1 spray each nostril am and hs FLUTICASONE PROPIONATE 29221420867 No Longer Active oTdd Callaway MD Active ANUSOL-HC 25 MG SUPPOSITORY 1 rectally twice a day as needed for hemorrhoids HYDROCORTISONE JAYDEN (RECTAL) 25717627055 No Longer Active Yolande Lindsay MD PhD Active ANUSOL-HC 25 MG SUPPOSITORY 1 suppository rectally each evening as needed for anal fissure HYDROCORTISONE JAYDEN (RECTAL) 90985241460 No Longer Active LONNIE Iglesias Active VALIUM 5 MG TAB 1 po 30 minutes prior to your MRI DIAZEPAM 67349908818 No Longer Active LONNIE Iglesias Active METHOCARBAMOL 750 MG TABS 1 PO QID PRN METHOCARBAMOL 83548244863 No Longer Active Daphne Wetzel APRN Active NITROSTAT 0.4 MG SUBL as directed NITROGLYCERIN 10518873054 No Longer Active Rodrigo Sarah APRN Active ROBAXIN-750 750 MG TABS 2 four times a day for 3 days as needed for muscle spasm, then 1 four times a day as needed METHOCARBAMOL 63862630039 No Longer Active Rodrigo Sarah APRN Active HYDROCODONE-ACETAMINOPHEN 5-325 MG TABS 1 q 4-6 hrs prn HYDROCODONE-ACETAMINOPHEN 91993160179 No Longer Active Rodrigo Sarah WASHING MACHINE ASSEMBLER Active VERAPAMIL HCL CR 180 MG CR-TABS TAKE 1 TAB DAILY VERAPAMIL HCL 31126801477 No Longer Active Yolande Lindsay MD PhD Active BACTRIM DS 800-160 MG TAB 1 tab by mouth twice daily TRIMETHOPRIM-SULFAMETHOXAZOLE 61946969722 No Longer Active Yolande Lindsay MD PhD Active NEXIUM 40 MG PACK 1 by mouth daily ESOMEPRAZOLE MAGNESIUM 08635916057 No Longer Active Des Hines MD Active EPIPEN 2-CHARLETTE 0.3 MG/0.3ML OMARI as need for allergic reaction EPINEPHRINE 05444843194 Active Yolande Lindsay MD PhD Active NEXIUM 40 MG CPDR 1 PO Q D DAY ESOMEPRAZOLE MAGNESIUM 61195880536 No Longer Active Sadia Perry RN Active NEXIUM 40 MG PACK 1 by mouth daily NEXIUM 40 MG PACK ESOMEPRAZOLE MAGNESIUM Inactive VERAPAMIL HCL CR 180 MG CR-TABS TAKE 1 TAB DAILY VERAPAMIL HCL CR 180 MG CR-TABS VERAPAMIL HCL Inactive HYDROCODONE-ACETAMINOPHEN 5-325 MG TABS 1 q 4-6 hrs prn HYDROCODONE-ACETAMINOPHEN 5-325 MG TABS 259249 HYDROCODONE-ACETAMINOPHEN Inactive ROBAXIN-750 750 MG TABS 2 four times a day for 3 days as needed for muscle spasm, then 1 four times a day as needed ROBAXIN-750 750 MG TABS 405705 METHOCARBAMOL Inactive NITROSTAT 0.4 MG SUBL as directed NITROSTAT 0.4 MG SUBL NITROGLYCERIN Inactive METHOCARBAMOL 750 MG TABS 1 PO QID PRN METHOCARBAMOL 750 MG TABS 680810 METHOCARBAMOL Inactive VALIUM 5 MG TAB 1 po 30 minutes prior to your MRI VALIUM 5 MG TAB 906869 DIAZEPAM Inactive ANUSOL-HC 25 MG SUPPOSITORY 1 suppository rectally each evening as needed for anal fissure ANUSOL-HC 25 MG SUPPOSITORY 0641071 HYDROCORTISONE JAYDEN (RECTAL) Inactive ANUSOL-HC 25 MG SUPPOSITORY 1 rectally twice a day as needed for hemorrhoids ANUSOL-HC 25 MG SUPPOSITORY 8551320 HYDROCORTISONE JAYDEN (RECTAL) Inactive FLONASE 50 MCG/ACT SUSP 1 spray each nostril am and hs FLONASE 50 MCG/ACT SUSP FLUTICASONE PROPIONATE Inactive DICLOFENAC SODIUM 75 MG TBEC 1 tablet by q 12 hours PRN headaches DICLOFENAC SODIUM 75 MG TBEC 802959 DICLOFENAC SODIUM Inactive PA VITAMIN D-3 2000 UNIT CAPS 1 CAP PO DAILY PA VITAMIN D-3 2000 UNIT CAPS CHOLECALCIFEROL Inactive PREVACID 30 MG CPDR Take 1 tablet by mouth daily-PRN PREVACID 30 MG CPDR 664126 LANSOPRAZOLE Inactive DOXYCYCLINE HYCLATE 100 MG TAB 1 tab twice a day for 14 days 2013 DOXYCYCLINE HYCLATE 100 MG TAB 2519398 DOXYCYCLINE HYCLATE Inactive XOPENEX 1.25 MG/3ML NEBU 1 neb every 4 hours if needed for cough/congestion XOPENEX 1.25 MG/3ML NEBU 365786 LEVALBUTEROL HCL Inactive CYCLOBENZAPRINE HCL 10 MG TABS 1/2 - 1 tab by mouth three times daily if needed for spasms/pain CYCLOBENZAPRINE HCL 10 MG TABS 952039 CYCLOBENZAPRINE HCL Inactive ALBUTEROL SULFATE 0.083 % NEBU SOLN one vial per nebulizer every 4-6 hours as needed ALBUTEROL SULFATE 0.083 % NEBU SOLN 248187 ALBUTEROL SULFATE Inactive CEFTIN 500 MG TAB 1 twice a day CEFTIN 500 MG TAB 370007 CEFUROXIME AXETIL Inactive ZOFRAN ODT 4 MG TBDP 1 pill dissolved by mouth every 4 hours if needed for nausea ZOFRAN ODT 4 MG TBDP 632013 ONDANSETRON Inactive ADULT ASPIRIN EC LOW STRENGTH 81 MG TBEC Take 1 tablet by mouth daily 2014 ADULT ASPIRIN EC LOW STRENGTH 81 MG TBEC 546290 ASPIRIN Inactive CALCIUM 600+D PLUS MINERALS 600-400 [...] or an apple NIACIN 500 MG TABS 722635 NIACIN Inactive NIASPAN 500 MG ORAL CR-TABS 1 pill nightly x 1 week, then 2 pills nightly x 1 week, then 3 pills nightly x 1 week, then 4 pills nightly NIASPAN 500 MG ORAL CR-TABS NIACIN (ANTIHYPERLIPIDEMIC) Inactive OXYCODONE HCL 5 MG ORAL CAPS 1 TAB PO Q HS OXYCODONE HCL 5 MG ORAL CAPS 1473875 OXYCODONE HCL Inactive FLUTICASONE PROPIONATE 50 MCG/ACT SUSP 1 to 2 sprays each nostril daily 04/21 FLUTICASONE PROPIONATE 50 MCG/ACT SUSP 496428 FLUTICASONE PROPIONATE Inactive POLYTRIM 62675-6.1 UNIT/ML-% SOLN 1 gtt to affected eye q3h x 7 days POLYTRIM 88155-9.1 UNIT/ML-% SOLN 207242 POLYMYXIN B- TRIMETHOPRIM Inactive CHERATUSSIN AC 100-10 MG/5ML SYRP 1 tsp by mouth every 4 hours as needed for cough CHERATUSSIN AC 100-10 MG/5ML SYRP 750533 GUAIFENESIN-CODEINE Inactive LEVOTHYROXINE SODIUM 75 MCG TABS Take 1 tab daily LEVOTHYROXINE SODIUM 75 MCG TABS 878616 LEVOTHYROXINE SODIUM Inactive BACTRIM DS 800-160 MG TAB 1 tab by mouth twice daily BACTRIM DS 800-160 MG TAB 19820606 TRIMETHOPRIM-SULFAMETHOXAZOLE Inactive AZITHROMYCIN 250 MG TABS 2 po qd x 1 day, then 1 po qd x 4 days AZITHROMYCIN 250 MG TABS 5562933 AZITHROMYCIN Inactive CEFDINIR 300 MG CAPS by mouth twice a day CEFDINIR 300 MG CAPS 468534 CEFDINIR Inactive AZITHROMYCIN 250 MG TABS 2 pills on day 1, then 1 pill daily x 4 days AZITHROMYCIN 250 MG TABS 2440440 AZITHROMYCIN Inactive DOXYCYCLINE HYCLATE 100 MG CAP 1 cap by mouth twice daily DOXYCYCLINE HYCLATE 100 MG CAP 9812439 DOXYCYCLINE HYCLATE Inactive FUROSEMIDE 20 MG TABS 1 pill by mouth daily, for edema FUROSEMIDE 20 MG TABS 156858 FUROSEMIDE Inactive AZITHROMYCIN 250 MG TABS 2 po qd x 1 day, then 1 po qd x 4 days AZITHROMYCIN 250 MG TABS 6167716 AZITHROMYCIN Inactive CEFTIN 500 MG TAB 1 twice a day CEFTIN 500 MG TAB 215870 CEFUROXIME AXETIL Inactive CEFDINIR 300 MG CAPS [...] for 2 days PREDNISONE 20 MG TAB 848101 PREDNISONE Inactive Immunizations Vaccine Administration Date Value Standard Description Seasonal influenza vaccine, injectable, containing preservative, for > 3 years old (Afluria, FluLaval, Fluzone, Fluvirin, Fluarix, Agriflu(>=18 yo)) Fluzone (>3 yrs.) [TDG200] Influenza, seasonal, injectable influenza immunization (Flu Vax) has been administered Influenza - Unspecified Formulation [CVX88] influenza virus vaccine, unspecified formulation Seasonal influenza vaccine, injectable, containing preservative, for > 3 years old (Afluria, FluLaval, Fluzone, Fluvirin, Fluarix, Agriflu(>=18 yo)) Fluzone (>3 yrs.) [JHT799] Influenza, seasonal, injectable pneumococcal immunization administered Pneumovax 23 [CVX33] pneumococcal polysaccharide vaccine, 23 valent dT (Diphtheria and Tetanus) booster given given Td(adult) unspecified formulation Boostrix (Tetanus toxoid, reduced diphtheria toxoid and acellular pertussis vaccine, adsorbed), booster Boostrix [HSW384] tetanus toxoid, reduced diphtheria toxoid, and acellular [...] Panel - Chemistry sodium, serum 142 mmol/L 705-172 0701/06/30 potassium, serum 4.4 mmol/L 3.5-5.2 chloride, serum 108 mmol/L 98-107 carbon dioxide, venous blood 25.1 mmol/L 21.0-32.0 blood glucose 82 mg/dL 65-110 calcium, serum 9.1 mg/dL 8.5-10.1 urea nitrogen, blood 18 mg/dL 7-18 creatinine, serum 1.31 mg/dL 0.55-1.30 Lab Report: [facility] Advanced Lipid and Inlammation Panel /77479 - Chemistry cholesterol, serum 148 mg/dL 777-027 9166/09/02 HDL cholesterol, serum 55 mg/dL > OR=46 [...] (L) - Chemistry sodium, serum 145 mmol/L 770-352 3550/09/02 potassium, serum 4.6 mmol/L 3.5-5.2 chloride, serum [...] Rate - Chemistry sodium, serum 139 mmol/L 735-968 8359/03/24 carbon dioxide, venous blood 22.4 mmol/L 21.0-32.0 [...] ... - Chemistry sodium, serum 143 mmol/L 648-926 8447/05/02 carbon dioxide, venous blood 25.6 mmol/L 21.0-32.0 [...] dipstick Negative Negative sodium, serum 142 mmol/L 501-111 4293/07/18 carbon dioxide, venous blood 27.8 mmol/L 21.0-32.0 [...] mg/dL Encounters Code Encounter Date Provider Facility CPT-34678 Level 2 Est. Patient 12:23:38 CDT Jared Og MD [facility] CPT-66761 Level 3 Est. Patient 11:01:51 CDT Gab Padron MD [facility] CPT-17460 Level 3 Est. Patient 15:27:02 CDT Jared Og MD [facility] [place] CPT-30629 Level 4 Est. Patient 09:25:27 CDT Gab Padron MD [facility] CPT-09035 Level 3 Est. Patient 10:29:41 CDT Rodrigo Sarah APRN [facility] CPT-33998 Level 4 Est. Patient 17:51:05 CDT Gab Padron MD [facility] CPT-90371 Level 3 Est. Patient 14:18:08 CDT Gab Padron MD [facility] CPT-36776 Level 4 Est. Patient 10:18:54 CDT Gab Padron MD [facility]-71028 Level 3 Est. Patient 11:30:07 CDT Rodrigo Sarah APRN [facility]-01421 Level 4 Est. Patient 21:02:30 PASSENGER COACH DRIVER Gab Padron MD [facility]-36840 Level 3 Est. Patient 11:02:19 PASSENGER COACH DRIVER Gab Padron MD [facility]-80411 Level 4 Est. Patient 22:24:31 PASSENGER COACH DRIVER Gab Padron MD [facility]-52225 Level 3 Est. Patient 18:33:46 PASSENGER COACH DRIVER Gab Padron MD [facility]-43544 Level 3 Est. Patient 16:19:11 CDT Yolande Lindsay MD [facility]-32378 Level 3 Est. Patient 18:59:14 CDT Yolande Lindsay MD [facility]-81772 Level 4 Est. Patient 21:29:26 CDT Yolande Lindsay MD [facility]-59064 Level 3 Est. Patient 07:37:45 CDT Yolande Lindsay MD [facility]-75242 Level 3 Est. Patient 17:03:46 CDT Yolande Lindsay MD [facility]-82600 Level 4 Est. Patient 20:02:13 PASSENGER COACH DRIVER Yolande Lindsay MD [facility]-02834 Level 3 Est. Patient 16:02:07 PASSENGER COACH DRIVER Alexis Ordaz MD [facility]-90866 Level 3 Est. Patient 12:41:24 PASSENGER COACH DRIVER Yolande Lindsay MD [facility]-09810 Level 3 Est. Patient 15:41:20 PASSENGER COACH DRIVER Yolande Lindsay MD [facility]-13235 Level 3 Est. Patient 13:20:02 PASSENGER COACH DRIVER Yolande Lindsay MD [facility]-50491 Level 3 Est. Patient 15:00:38 CDT Jared Og MD [facility]-02732 Level 3 Est. Patient 10:22:32 CDT Yolande Lindsay MD [facility]-68701 Level 3 Est. Patient 17:12:58 CDT Yolande Lindsay MD [facility]-69019 Level 4 Est. Patient 13:30:58 CDT Yolande Lindsay MD [facility]-17210 Level 4 New Patient 09:02:42 CDT Jared Og MD [facility]-75952 Level 3 Est. Patient 08:19:07 CDT Yolande Lindsay MD [facility]-75642 Level 3 Est. Patient 12:00:13 PASSENGER COACH DRIVER Gab Padron MD [facility]-48453 Level 3 Est. Patient 16:15:23 PASSENGER COACH DRIVER Yolande Lindsay MD [facility]-37141 Level 2 Est. Patient 19:47:15 CDT Yolande Lindsay MD [facility]-43163 Level 3 Est. Patient 21:38:31 CDT Yolande Lindsay MD [facility]-45315 Level 3 Est. Patient 10:25:12 CDT Adiel PERAZA [facility]-00777 Level 4 Est. Patient 10:51:58 CDT Yolande Lindsay MD [facility]-63084 Level 3 Est. Patient 14:04:55 PASSENGER COACH DRIVER Rodrigo Sarah APRN [facility]-19234 Level 3 Est. Patient 10:46:35 PASSENGER COACH DRIVER Jillina Frazell [facility] CPT-98710 Level 3 Est. Patient 14:24:37 PASSENGER COACH DRIVER Yolande Lindsay MD [facility] CPT-34910 Level 3 Est. Patient 17:41:58 PASSENGER COACH DRIVER Yolande Lindsay MD [facility] CPT-54409 Level 2 Est. Patient 22:01:41 PASSENGER COACH DRIVER Rodrigo Sarah [facility] CPT-51358 Level 2 Est. Patient 22:01:11 PASSENGER COACH DRIVER Rodrigo Sarah [facility] CPT-27214 Level 3 Est. Patient 10:12:29 PASSENGER COACH DRIVER Rodrigo Sarah [facility] CPT-27535 Level 3 Est. Patient 11:05:44 CDT Alexis Ordaz MD [facility] CPT-50609 Level 3 Est. Patient 14:57:20 CDT Yolande Lindsay MD [facility] CPT-64020 Level 3 Est. Patient 14:40:57 CDT Yolande Lindsay MD [facility] CPT-58153 Level 3 Est. Patient 20:55:40 CDT Yolande Lindsay MD [facility] CPT-20684 Level 3 Est. Patient 12:42:38 PASSENGER COACH DRIVER Yolande Lindsay MD [facility] CPT-26624 Level 3 Est. Patient 11:54:49 PASSENGER COACH DRIVER Des Hines MD [facility] CPT-73153 Level 3 Est. Patient 17:06:38 CDT Dewayne PERAZA [facility] Procedures Code Procedure Name Date Entry Date Standard Description CPT-21755 Foot, left, comp min 3V - XRAY USE ONLY 09:24:54 CDT CPT-61743 Abd single AP View - XRAY USE ONLY 11:16:17 CDT CPT-41732 T spine AP/ Lat - XRAY USE ONLY 09:34:21 CDT CPT-27168 Chest 2V Frontal and Lat - XRAY USE ONLY 10:48:51 CDT CPT-36572 LS spine comp w obliq 13:28:00 PASSENGER COACH DRIVER CPT-J1040 Depo Medrol 80 mg (Methyl Prednisolone Acetate) 10:51: 28 PASSENGER COACH DRIVER CPT-J1100 Decadron 8mg (Dexamethasone) 10:51:28 PASSENGER COACH DRIVER CPT-89358 Abx/Therapy Injection 10:51:28 PASSENGER COACH DRIVER CPT-J1100 Decadron 8mg (Dexamethasone) 21:02:30 PASSENGER COACH DRIVER CPT-J1040 Depo Medrol 80 mg (Methyl Prednisolone Acetate) 21:02: 30 PASSENGER COACH DRIVER [id number] Event Monitor - MC Transmission 09:12:32 CDT 08/06 [id number] Event Monitor - MC review and interp 09:12:32 CDT [id number] Event Monitor - MC recording 09:12:32 CDT CPT-58486 EKG Trac and Interp 16:50:22 CDT CPT-J1030 Depo Medrol 40 mg (Methyl Prednisolone Acetate) 17:05: 54 CDT CPT-J1100 Decadron 4mg (Dexamethasone) 17:05:54 CDT CPT-40279 Abx/Therapy Injection 17:05:54 CDT CPT-J1100 Decadron 4mg (Dexamethasone) 16:55:28 CDT CPT-J1030 Depo Medrol 40 mg (Methyl Prednisolone Acetate) 16:55: 28 CDT CPT-27463 Ankle Complete - Min 3V 15:58:50 CDT CPT-80559 Knee 3V 15:58:50 CDT CPT-43283 Hip comp min 2V 15:58:50 CDT CPT-J2270 Morphine Sulfate 10 mg 14:25:44 PASSENGER COACH DRIVER CPT-J2550 Phenergan 12.5 mg (Promethazine) 14:25:44 PASSENGER COACH DRIVER CPT-49369 Abx/Therapy Injection 14:25:44 PASSENGER COACH DRIVER CPT-J2550 Phenergan 12.5 mg (Promethazine) 14:08:03 PASSENGER COACH DRIVER CPT-J2270 Morphine Sulfate 10 mg 14:08:03 PASSENGER COACH DRIVER CPT-40305 Bladder Scan 15:00:38 CDT CPT-TCMM Transitional Care Mgmt-Moderate 09:52:22 CDT CPT-J1030 Depo Medrol 40 mg (Methyl Prednisolone Acetate) 10:55: 18 CDT CPT-J1100 Decadron 4mg (Dexamethasone) 10:55:18 CDT CPT-58413 Abx/Therapy Injection 10:55:18 CDT CPT-J1030 Depo Medrol 40 mg (Methyl Prednisolone Acetate) 10:22: 32 CDT CPT-J1100 Decadron 4mg (Dexamethasone) 10:22:32 CDT CPT-12585 Postop F/U Visit 14:37:13 CDT CPT-57855 Ankle Complete - Min 3V 17:11:58 CDT CPT-31503 Foot comp min 3V 17:11:58 CDT CPT-22607 Bladder Scan 09:56:58 CDT CPT-90042 Postop F/U Visit 09:56:58 CDT CPT-87080 Cystoscopy 09:02:42 CDT CPT-99031 Bladder Scan 09:02:42 CDT CPT-21802 Abd single AP View 16:00:35 CDT CPT-16056 Administration single or combination vaccine inc oral 10 :15:43 CDT CPT-29570 Influenza split virus > age 3 10:15:43 CDT CPT-47120 Nail Avulsion 09:24:57 CDT CPT-OV Office Visit 11:15:41 CDT CPT-75293 Abx/Therapy Injection 10:51:30 CDT CPT-J3301 Kenalog 40 mg (Triamcinolone Acetonide) 10:25:12 CDT CPT-J1100 Decadron 4mg (Dexamethasone) 10:25:12 CDT CPT-26053 Anoscopy diagnostic 10:36:12 CDT CPT-OV Office Visit 15:34:31 CDT CPT-34642 Abx/Therapy Injection 08:21:15 PASSENGER COACH DRIVER CPT-J1885 Toradol 60 mg (Ketorolac) 10:46:35 PASSENGER COACH DRIVER CPT-OV Office Visit 19:51:16 PASSENGER COACH DRIVER CPT-11891 Spec Collection and Handling Fee 14:34:18 PASSENGER COACH DRIVER CPT-PV Prev. Care Visit 14:19:18 PASSENGER COACH DRIVER CPT-41399 Postop F/U Visit 14:47:51 PASSENGER COACH DRIVER CPT-40197 Postop F/U Visit 15:15:14 PASSENGER COACH DRIVER CPT-19032 Postop F/U Visit 14:41:43 CDT CPT-96943 Postop F/U Visit 15:47:46 CDT CPT-OV Office Visit 15:27:23 CDT CPT-OV Office Visit 17:20:34 CDT CPT-20979 Abx/Therapy Injection 15:05:57 CDT CPT-J1100 Decadron 8mg (Dexamethasone) 14:44:57 CDT CPT-J1040 Depo Medrol 80 mg (Methyl Prednisolone Acetate) 14:44: 57 CDT CPT-JTINJ Joint Injection 10:17:37 CDT CPT-97769 Administration 2+ single or combination vaccines inc oral 13:01:46 PASSENGER COACH DRIVER CPT-35335 Administration single or combination vaccine inc oral 13 :01:46 PASSENGER COACH DRIVER CPT-68813 Pneumovax 13:01:46 PASSENGER COACH DRIVER CPT-61715 Influenza split virus > age 3 13:01:46 PASSENGER COACH DRIVER CPT-85063 Administration single or combination vaccine inc oral 08 :56:49 CDT CPT-19241 Tdap 08:56:49 CDT
--- OUTSIDE RECORDS SUMMARY | 2017-03-22 00:46 | XMS REPORT ---
Author Author [facility] Medical Staff Organization [facility] Address [address] [phone] Phone [phone] Care Team Providers Care Geospatial Technologist Name Role Phone EVELYN SPEARS MD PP [phone] Summary purpose TRANSITION OF CARE AUTO GENERATION [...]
--- OUTSIDE RECORDS SUMMARY | 2017-03-22 00:46 | XMS REPORT | Clinical Summary ---
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 Jillina Frazellilian STEAM PRESS TENDER 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 Anemia 285.9 Active Gab Padron MD Anemia, unspecified Conjunctivitis 372.30 Active Jillina Tyrel STEAM PRESS TENDER Conjunctivitis, unspecified Sinusitis 473.9 Active Jillina Frazell STEAM PRESS TENDER Unspecified sinusitis (chronic) Nonspecific syndrome suggestive of viral illness 079.99 Active Rodrigo Sarah APRN Unspecified viral infection Laryngitis 464.00 Active Rodrigo Sarah APRN Acute laryngitis without mention of obstruction FOOT PAIN, RIGHT ICD-729.5 Inactive Yolande Lindsay MD PhD ANKLE PAIN, RIGHT ICD-719.47 Inactive Yolande Lindsay MD PhD EDEMA, LIMB ICD-782.3 Inactive Yolande Lindsay MD PhD ABDOMINAL PAIN ICD-789.00 Inactive oYlande Lindsay MD PhD PLANTAR FASCIITIS ICD-728.71 Inactive [...] MCG/DOSE AEPB 1 puff BID FLUTICASONE- SALMETEROL 02724108029 Active Rodrigo Sarah STEAM PRESS TENDER Active LEVOTHYROXINE SODIUM 75 MCG TABS Take 1 tab daily LEVOTHYROXINE SODIUM 46959044655 No Longer Active Mariana Cuadra RMA Active SYNTHROID 88 MCG ORAL TABS Take one by mouth daily LEVOTHYROXINE SODIUM 70064704643 Active Mariana Cuadra RMA Active CHERATUSSIN AC 100-10 MG/5ML SYRP 1 tsp by mouth every 4 hours as needed for cough GUAIFENESIN-CODEINE 82255812294 No Longer Active Gab Padron MD Active POLYTRIM 44664-7.1 UNIT/ML-% SOLN 1 gtt to affected eye q3h x 7 days POLYMYXIN B-TRIMETHOPRIM 83436224021 No Longer Active Gab Padron MD Active FLUTICASONE PROPIONATE 50 MCG/ACT SUSP 1 to 2 sprays each nostril daily 04/21 FLUTICASONE PROPIONATE 39035375272 No Longer Active Gab Padron MD Active TRILEPTAL 600 MG TABS Take one 1 tablet in Am and 1 tablet at night OXCARBAZEPINE 37841687447 Active Gab Padron MD Active CEFDINIR 300 MG CAPS 1 po BID x 10 days CEFDINIR 38510683336 No Longer Active Rodrigo Sarah APRN Active CEFTIN 500 MG TAB 1 twice a day CEFUROXIME AXETIL 30929321646 No Longer Active Gab Padron MD Active AZITHROMYCIN 250 MG TABS 2 po qd x 1 day, then 1 po qd x 4 days AZITHROMYCIN 36292680598 No Longer Active Rodrigo Sarah APRN Active CLARITIN 10 MG TAB 1 tablet by mouth daily as needed for allergies LORATADINE 36912480152 Active Silvestrellnacho Sarah APRN Active OXYCODONE HCL 5 MG ORAL CAPS 1 TAB PO Q HS OXYCODONE HCL 40869685408 No Longer Active Rodrigo Sarah APRN Active NIASPAN 500 MG ORAL CR-TABS 1 pill nightly x 1 week, then 2 pills nightly x 1 week, then 3 pills nightly x 1 week, then 4 pills nightly NIACIN (ANTIHYPERLIPIDEMIC) 11920687672 No Longer Active Rodrigo Sarah APRN Active NIACIN 500 MG TABS 1 pill by mouth nightly x 1 week, then 2 pills x 1 week, then 3 pills x 1 week, then 4 pills nightly - take after evening meal, with applesauce or an apple NIACIN 56517468638 No Longer Active Yolande Lindsay MD PhD Active FISH OIL 1000 MG CAPS 3 pills daily OMEGA-3 FATTY ACIDS 81998331094 Active Yolande Lindsay MD PhD Active TRIAMCINOLONE ACETONIDE 0.1 % CREA apply bid sparingly to rash TRIAMCINOLONE ACETONIDE 22625547064 Active Yolande Lindsay MD PhD Active FUROSEMIDE 20 MG TAB 1 tablet by mouth daily FUROSEMIDE 06351064647 Active Yolande Lindsay MD PhD Active LISINOPRIL 20 MG ORAL TABS 1 tab by mouth daily LISINOPRIL 27479465840 Active Gab Padron MD Active FUROSEMIDE 20 MG TABS 1 pill by mouth daily, for edema FUROSEMIDE 70310765414 No Longer Active Yolande Lindsay MD PhD Active ATORVASTATIN CALCIUM 10 MG TABS 1 pill by mouth daily, for cholesterol 09/06 ATORVASTATIN CALCIUM 18002675803 Active Yolande Lindsay MD PhD Active CALCIUM 600+D PLUS MINERALS 600-400 MG-UNIT ORAL CHEW 1 tab by mouth daily CALCIUM CARBONATE-VIT D-MIN 00178961648 No Longer Active Yolande Lindsay MD PhD Active CYCLOBENZAPRINE HCL 10 MG TABS 1 tablet by mouth three times daily as needed for muscle spasm/pain CYCLOBENZAPRINE HCL 68747043872 Active Yolande Lindsay MD PhD Active ONDANSETRON 4 MG TBDP 1 q4h PRN nausea ONDANSETRON 45120210923 Active Yolande Lindsay MD PhD Active ADULT ASPIRIN EC LOW STRENGTH 81 MG TBEC Take 1 tablet by mouth daily 2014 ASPIRIN 73593235169 No Longer Active Yolande Lindsay MD PhD Active ZOFRAN ODT 4 MG TBDP 1 pill dissolved by mouth every 4 hours if needed for nausea ONDANSETRON 37659873453 No Longer Active Yolande Lindsay MD PhD Active CEFTIN 500 MG TAB 1 twice a day CEFUROXIME AXETIL 07045887974 No Longer Active Yolande Lindsay MD PhD Active ALBUTEROL SULFATE 0.083 % NEBU SOLN one vial per nebulizer every 4-6 hours as needed ALBUTEROL SULFATE 82137324005 No Longer Active Alexis Ordaz MD Active DOXYCYCLINE HYCLATE 100 MG CAP 1 cap by mouth twice daily DOXYCYCLINE HYCLATE 01846671033 No Longer Active Yolande Lindsay MD PhD Active CYCLOBENZAPRINE HCL 10 MG TABS 1/2 - 1 tab by mouth three times daily if needed for spasms/pain CYCLOBENZAPRINE HCL 45256619029 No Longer Active Yolande Lindsay MD PhD Active AZITHROMYCIN 250 MG TABS 2 pills on day 1, then 1 pill daily x 4 days AZITHROMYCIN 25563460763 No Longer Active Yolande Lindsay MD PhD Active XOPENEX 1.25 MG/3ML NEBU 1 neb every 4 hours if needed for cough/congestion LEVALBUTEROL HCL 81825176053 No Longer Active Yolande Lindsay MD PhD Active DOXYCYCLINE HYCLATE 100 MG TAB 1 tab twice a day for 14 days 2013 DOXYCYCLINE HYCLATE 97204203212 No Longer Active Yolande Lindsay MD PhD Active PREVACID 30 MG CPDR Take 1 tablet by mouth daily-PRN LANSOPRAZOLE 67831626384 No Longer Active Yolande Lindsay MD PhD Active PA VITAMIN D-3 2000 UNIT CAPS 1 CAP PO DAILY CHOLECALCIFEROL 79196808688 No Longer Active Yolande Lindsay MD PhD Active CEFDINIR 300 MG CAPS by mouth twice a day CEFDINIR 47704290304 No Longer Active Gab Padron MD Active TOPAMAX 50 MG TABS 1 PO twice daily TOPIRAMATE 27037754670 Active Yolande Lindsay MD PhD Active AZITHROMYCIN 250 MG TABS 2 po qd x 1 day, then 1 po qd x 4 days AZITHROMYCIN 22646829434 No Longer Active Yolande Lindsay MD PhD Active DICLOFENAC SODIUM 75 MG TBEC 1 tablet by q 12 hours PRN headaches DICLOFENAC SODIUM 86290214727 No Longer Active Yolande Lindsay MD PhD Active FLONASE 50 MCG/ACT SUSP 1 spray each nostril am and hs FLUTICASONE PROPIONATE 10216871533 No Longer Active Todd Callaway MD Active ANUSOL-HC 25 MG SUPPOSITORY 1 rectally twice a day as needed for hemorrhoids HYDROCORTISONE JAYDEN (RECTAL) 51087186648 No Longer Active Yolande Lindsay MD PhD Active ANUSOL-HC 25 MG SUPPOSITORY 1 suppository rectally each evening as needed for anal fissure HYDROCORTISONE JAYDEN (RECTAL) 46861696780 No Longer Active LONNIE Iglesias Active VALIUM 5 MG TAB 1 po 30 minutes prior to your MRI DIAZEPAM 03738931758 No Longer Active LONNIE Iglesias Active METHOCARBAMOL 750 MG TABS 1 PO QID PRN METHOCARBAMOL 79060132825 No Longer Active Daphne Wetzel APRN Active NITROSTAT 0.4 MG SUBL as directed NITROGLYCERIN 76876529282 No Longer Active Rodrigo Sarah APRN Active ROBAXIN-750 750 MG TABS 2 four times a day for 3 days as needed for muscle spasm, then 1 four times a day as needed METHOCARBAMOL 59286695178 No Longer Active Rodrigo Sarah APRN Active HYDROCODONE-ACETAMINOPHEN 5-325 MG TABS 1 q 4-6 hrs prn HYDROCODONE-ACETAMINOPHEN 11379140504 No Longer Active Rodrigo Sarah APRN Active VERAPAMIL HCL CR 180 MG CR-TABS TAKE 1 TAB DAILY VERAPAMIL HCL 10727256392 No Longer Active Yolande Lindsay MD PhD Active BACTRIM DS 800-160 MG TAB 1 tab by mouth twice daily TRIMETHOPRIM-SULFAMETHOXAZOLE 70440341799 No Longer Active Yolande Lindsay MD PhD Active NEXIUM 40 MG PACK 1 by mouth daily ESOMEPRAZOLE MAGNESIUM 53300797353 No Longer Active Des Hines MD Active EPIPEN 2-CHARLETTE 0.3 MG/0.3ML OMARI as need for allergic reaction EPINEPHRINE 79364007860 Active Yolande Lindsay MD PhD Active NEXIUM 40 MG CPDR 1 PO Q D DAY ESOMEPRAZOLE MAGNESIUM 79841165263 No Longer Active Sadia Perry RN Active NEXIUM 40 MG PACK 1 by mouth daily NEXIUM 40 MG PACK ESOMEPRAZOLE MAGNESIUM Inactive VERAPAMIL HCL CR 180 MG CR-TABS TAKE 1 TAB DAILY VERAPAMIL HCL CR 180 MG CR-TABS VERAPAMIL HCL Inactive HYDROCODONE-ACETAMINOPHEN 5-325 MG TABS 1 q 4-6 hrs prn HYDROCODONE-ACETAMINOPHEN 5-325 MG TABS 574982 HYDROCODONE-ACETAMINOPHEN Inactive ROBAXIN-750 750 MG TABS 2 four times a day for 3 days as needed for muscle spasm, then 1 four times a day as needed ROBAXIN-750 750 MG TABS 668187 METHOCARBAMOL Inactive NITROSTAT 0.4 MG SUBL as directed NITROSTAT 0.4 MG SUBL NITROGLYCERIN Inactive METHOCARBAMOL 750 MG TABS 1 PO QID PRN METHOCARBAMOL 750 MG TABS 175039 METHOCARBAMOL Inactive VALIUM 5 MG TAB 1 po 30 minutes prior to your MRI VALIUM 5 MG TAB 626914 DIAZEPAM Inactive ANUSOL-HC 25 MG SUPPOSITORY 1 suppository rectally each evening as needed for anal fissure ANUSOL-HC 25 MG SUPPOSITORY 9004267 HYDROCORTISONE JAYDEN (RECTAL) Inactive ANUSOL-HC 25 MG SUPPOSITORY 1 rectally twice a day as needed for hemorrhoids ANUSOL-HC 25 MG SUPPOSITORY 3997654 HYDROCORTISONE JAYDEN (RECTAL) Inactive FLONASE 50 MCG/ACT SUSP 1 spray each nostril am and hs FLONASE 50 MCG/ACT SUSP FLUTICASONE PROPIONATE Inactive DICLOFENAC SODIUM 75 MG TBEC 1 tablet by q 12 hours PRN headaches DICLOFENAC SODIUM 75 MG TBEC 314471 DICLOFENAC SODIUM Inactive PA VITAMIN D-3 2000 UNIT CAPS 1 CAP PO DAILY PA VITAMIN D-3 2000 UNIT CAPS CHOLECALCIFEROL Inactive PREVACID 30 MG CPDR Take 1 tablet by mouth daily-PRN PREVACID 30 MG CPDR 093264 LANSOPRAZOLE Inactive DOXYCYCLINE HYCLATE 100 MG TAB 1 tab twice a day for 14 days 2013 DOXYCYCLINE HYCLATE 100 MG TAB 7380752 DOXYCYCLINE HYCLATE Inactive XOPENEX 1.25 MG/3ML NEBU 1 neb every 4 hours if needed for cough/congestion XOPENEX 1.25 MG/3ML NEBU 154440 LEVALBUTEROL HCL Inactive CYCLOBENZAPRINE HCL 10 MG TABS 1/2 - 1 tab by mouth three times daily if needed for spasms/pain CYCLOBENZAPRINE HCL 10 MG TABS 036123 CYCLOBENZAPRINE HCL Inactive ALBUTEROL SULFATE 0.083 % NEBU SOLN one vial per nebulizer every 4-6 hours as needed ALBUTEROL SULFATE 0.083 % NEBU SOLN 137216 ALBUTEROL SULFATE Inactive CEFTIN 500 MG TAB 1 twice a day CEFTIN 500 MG TAB 663172 CEFUROXIME AXETIL Inactive ZOFRAN ODT 4 MG TBDP 1 pill dissolved by mouth every 4 hours if needed for nausea ZOFRAN ODT 4 MG TBDP 469615 ONDANSETRON Inactive ADULT ASPIRIN EC LOW STRENGTH 81 MG TBEC Take 1 tablet by mouth daily 2014 ADULT ASPIRIN EC LOW STRENGTH 81 MG TBEC 584212 ASPIRIN Inactive CALCIUM 600+D PLUS MINERALS 600-400 [...] or an apple NIACIN 500 MG TABS 755606 NIACIN Inactive NIASPAN 500 MG ORAL CR-TABS 1 pill nightly x 1 week, then 2 pills nightly x 1 week, then 3 pills nightly x 1 week, then 4 pills nightly NIASPAN 500 MG ORAL CR-TABS NIACIN (ANTIHYPERLIPIDEMIC) Inactive OXYCODONE HCL 5 MG ORAL CAPS 1 TAB PO Q HS OXYCODONE HCL 5 MG ORAL CAPS 3837157 OXYCODONE HCL Inactive FLUTICASONE PROPIONATE 50 MCG/ACT SUSP 1 to 2 sprays each nostril daily 04/21 FLUTICASONE PROPIONATE 50 MCG/ACT SUSP 225340 FLUTICASONE PROPIONATE Inactive POLYTRIM 55486-3.1 UNIT/ML-% SOLN 1 gtt to affected eye q3h x 7 days POLYTRIM 78243-2.1 UNIT/ML-% SOLN 298735 POLYMYXIN B- TRIMETHOPRIM Inactive CHERATUSSIN AC 100-10 MG/5ML SYRP 1 tsp by mouth every 4 hours as needed for cough CHERATUSSIN AC 100-10 MG/5ML SYRP 717907 GUAIFENESIN-CODEINE Inactive LEVOTHYROXINE SODIUM 75 MCG TABS Take 1 tab daily LEVOTHYROXINE SODIUM 75 MCG TABS 068434 LEVOTHYROXINE SODIUM Inactive BACTRIM DS 800-160 MG TAB 1 tab by mouth twice daily BACTRIM DS 800-160 MG TAB 988333 TRIMETHOPRIM-SULFAMETHOXAZOLE Inactive AZITHROMYCIN 250 MG TABS 2 po qd x 1 day, then 1 po qd x 4 days AZITHROMYCIN 250 MG TABS 4602365 AZITHROMYCIN Inactive CEFDINIR 300 MG CAPS by mouth twice a day CEFDINIR 300 MG CAPS 535108 CEFDINIR Inactive AZITHROMYCIN 250 MG TABS 2 pills on day 1, then 1 pill daily x 4 days AZITHROMYCIN 250 MG TABS 3961979 AZITHROMYCIN Inactive DOXYCYCLINE HYCLATE 100 MG CAP 1 cap by mouth twice daily DOXYCYCLINE HYCLATE 100 MG CAP 8183822 DOXYCYCLINE HYCLATE Inactive FUROSEMIDE 20 MG TABS 1 pill by mouth daily, for edema FUROSEMIDE 20 MG TABS 949869 FUROSEMIDE Inactive AZITHROMYCIN 250 MG TABS 2 po qd x 1 day, then 1 po qd x 4 days AZITHROMYCIN 250 MG TABS 9544034 AZITHROMYCIN Inactive CEFTIN 500 MG TAB 1 twice a day CEFTIN 500 MG TAB 338798 CEFUROXIME AXETIL Inactive CEFDINIR 300 MG CAPS 1 po BID x 10 days CEFDINIR 300 MG CAPS 863782 CEFDINIR Inactive Immunizations Vaccine Administration Date Value Standard Description Seasonal influenza vaccine, injectable, containing preservative, for > 3 years old (Afluria, FluLaval, Fluzone, Fluvirin, Fluarix, Agriflu(>=18 yo)) Fluzone (>3 yrs.) [LFP167] Influenza, seasonal, injectable influenza immunization (Flu Vax) has been administered Influenza - Unspecified Formulation [CVX88] influenza virus vaccine, unspecified formulation Seasonal influenza vaccine, injectable, containing preservative, for > 3 years old (Afluria, FluLaval, Fluzone, Fluvirin, Fluarix, Agriflu(>=18 yo)) Fluzone (>3 yrs.) [MAL396] Influenza, seasonal, injectable pneumococcal immunization administered Pneumovax 23 [CVX33] pneumococcal polysaccharide vaccine, 23 valent dT (Diphtheria and Tetanus) booster given given Td(adult) unspecified formulation Boostrix (Tetanus toxoid, reduced diphtheria toxoid and acellular pertussis vaccine, adsorbed), booster Boostrix [GWR298] tetanus toxoid, reduced diphtheria toxoid, and acellular [...] Panel - Chemistry sodium, serum 145 mmol/L 202-696 0698/06/22 potassium, serum 3.9 mmol/L 3.5-5.2 chloride, serum 109 mmol/L 98-107 carbon dioxide, venous blood 23.4 mmol/L 21.0-32.0 blood glucose 92 mg/dL 65-110 calcium, serum 8.2 mg/dL 8.5-10.1 urea nitrogen, blood 24 mg/dL 7-18 creatinine, serum 1.30 mg/dL 0.60-1.30 Lab Report: [facility] Advanced Lipid and Inlammation Panel /64200 - Chemistry cholesterol, serum 198 mg/dL 467-325 1847/04/30 HDL cholesterol, serum 65 mg/dL > OR=46 triglyceride, serum, fasting 82 mg/dL LDL cholesterol, serum 117 mg/dL cholesterol/HDL ratio, serum 3.0 calc < OR=5.0 cholesterol, serum 148 mg/dL 988-140 8974/09/02 HDL cholesterol, serum 55 mg/dL > OR=46 [...] (L) - Chemistry sodium, serum 145 mmol/L 618-930 0619/09/02 potassium, serum 4.6 mmol/L 3.5-5.2 chloride, serum [...] 51 mg/dL 30-200 cholesterol, serum 173 mg/dL 011-435 3282/04/28 HDL cholesterol, serum 63 mg/dL 32-96 LDL [...] mg/dL Encounters Code Encounter Date Provider Facility CPT-10019 Level 3 Est. Patient 11:30:07 CDT Rodrigo Sarah APRN [facility]-50181 Level 4 Est. Patient 21:02:30 INSURANCE CLAIM REPRESENTATIVE Gab Padron MD [facility]-65248 Level 3 Est. Patient 11:02:19 INSURANCE CLAIM REPRESENTATIVE Gab Padron MD [facility]-75946 Level 4 Est. Patient 22:24:31 INSURANCE CLAIM REPRESENTATIVE Gab Padron MD [facility]-71094 Level 3 Est. Patient 18:33:46 INSURANCE CLAIM REPRESENTATIVE Gab Padron MD [facility]-48506 Level 3 Est. Patient 16:19:11 CDT Yolande Lindsay MD [facility]-51910 Level 3 Est. Patient 18:59:14 CDT Yolande Lindsay MD [facility]-49836 Level 4 Est. Patient 21:29:26 CDT Yolande Lindsay MD [facility]-97974 Level 3 Est. Patient 07:37:45 CDT Yolande Lindsay MD [facility]-35423 Level 3 Est. Patient 17:03:46 CDT Yolande Lindsay MD [facility]-86293 Level 4 Est. Patient 20:02:13 INSURANCE CLAIM REPRESENTATIVE Yolande Lindsay MD [facility]-11925 Level 3 Est. Patient 16:02:07 INSURANCE CLAIM REPRESENTATIVE Alexis Ordaz MD [facility]-57811 Level 3 Est. Patient 12:41:24 INSURANCE CLAIM REPRESENTATIVE Yolande Lindsay MD PhD [facility]-80703 Level 3 Est. Patient 15:41:20 INSURANCE CLAIM REPRESENTATIVE Yolande Lindsay MD [facility]-83185 Level 3 Est. Patient 13:20:02 INSURANCE CLAIM REPRESENTATIVE Yolande Lindsay MD [facility]-60564 Level 3 Est. Patient 15:00:38 CDT Jared Og MD [facility] CPT-80317 Level 3 Est. Patient 10:22:32 CDT Yolande Lindsay MD [facility] CPT-81063 Level 3 Est. Patient 17:12:58 CDT Yolande Lindsay MD [facility] CPT-53460 Level 4 Est. Patient 13:30:58 CDT Yolande Lindsay MD [facility] CPT-54679 Level 4 New Patient 09:02:42 CDT Jared Og MD [facility]-74643 Level 3 Est. Patient 08:19:07 CDT Yolande Lindsay MD [facility]-89405 Level 3 Est. Patient 12:00:13 INSURANCE CLAIM REPRESENTATIVE Gab Padron MD [facility] CPT-97644 Level 3 Est. Patient 16:15:23 INSURANCE CLAIM REPRESENTATIVE Yolande Lindsay MD [facility] CPT-61440 Level 2 Est. Patient 19:47:15 CDT Yolande Lindsay MD [facility] CPT-31282 Level 3 Est. Patient 21:38:31 CDT Yolande Lindsay MD [facility] CPT-50121 Level 3 Est. Patient 10:25:12 CDT Adiel PERAZA [facility] CPT-36583 Level 4 Est. Patient 10:51:58 CDT Yolande Lindsay MD [facility] CPT-17672 Level 3 Est. Patient 14:04:55 INSURANCE CLAIM REPRESENTATIVE Rodrigo Sarah [facility] CPT-69523 Level 3 Est. Patient 10:46:35 INSURANCE CLAIM REPRESENTATIVE Rodrigo Sarah [facility] CPT-16233 Level 3 Est. Patient 14:24:37 INSURANCE CLAIM REPRESENTATIVE Yolande Lindsay MD [facility] CPT-40484 Level 3 Est. Patient 17:41:58 INSURANCE CLAIM REPRESENTATIVE Yolande Lindsay MD [facility] CPT-45523 Level 2 Est. Patient 22:01:41 INSURANCE CLAIM REPRESENTATIVE Rodrigo Sarah [facility] CPT-64006 Level 2 Est. Patient 22:01:11 INSURANCE CLAIM REPRESENTATIVE Rodrigo Sarah [facility] CPT-53632 Level 3 Est. Patient 10:12:29 INSURANCE CLAIM REPRESENTATIVE Rodrigo Sarah [facility] CPT-74167 Level 3 Est. Patient 11:05:44 CDT Alexis Ordaz MD [facility] CPT-74256 Level 3 Est. Patient 14:57:20 CDT Yolande Lindsay MD [facility] CPT-50662 Level 3 Est. Patient 14:40:57 CDT Yolande Lindsay MD [facility] CPT-15269 Level 3 Est. Patient 20:55:40 CDT Yolande Lindsay MD [facility] CPT-64000 Level 3 Est. Patient 12:42:38 INSURANCE CLAIM REPRESENTATIVE Yolande Lindsay MD [facility]-88555 Level 3 Est. Patient 11:54:49 INSURANCE CLAIM REPRESENTATIVE Des Hines MD [facility] CPT-41282 Level 3 Est. Patient 17:06:38 CDT Dewayne PERAZA [facility] Procedures Code Procedure Name Date Entry Date Standard Description CPT-55179 LS spine comp w obliq 13:28:00 INSURANCE CLAIM REPRESENTATIVE CPT-J1040 Depo Medrol 80 mg (Methyl Prednisolone Acetate) 10:51: 28 INSURANCE CLAIM REPRESENTATIVE CPT-J1100 Decadron 8mg (Dexamethasone) 10:51:28 INSURANCE CLAIM REPRESENTATIVE CPT-37727 Abx/Therapy Injection 10:51:28 INSURANCE CLAIM REPRESENTATIVE CPT-J1100 Decadron 8mg (Dexamethasone) 21:02:30 INSURANCE CLAIM REPRESENTATIVE CPT-J1040 Depo Medrol 80 mg (Methyl Prednisolone Acetate) 21:02: 30 INSURANCE CLAIM REPRESENTATIVE [id number] Event Monitor - MC Transmission 09:12:32 CDT 08/06 [id number] Event Monitor - MC review and interp 09:12:32 CDT [id number] Event Monitor - MC recording 09:12:32 CDT CPT-19593 EKG Trac and Interp 16:50:22 CDT CPT-J1030 Depo Medrol 40 mg (Methyl Prednisolone Acetate) 17:05: 54 CDT CPT-J1100 Decadron 4mg (Dexamethasone) 17:05:54 CDT CPT-63618 Abx/Therapy Injection 17:05:54 CDT CPT-J1100 Decadron 4mg (Dexamethasone) 16:55:28 CDT CPT-J1030 Depo Medrol 40 mg (Methyl Prednisolone Acetate) 16:55: 28 CDT CPT-59459 Ankle Complete - Min 3V 15:58:50 CDT CPT-11125 Knee 3V 15:58:50 CDT CPT-37732 Hip comp min 2V 15:58:50 CDT CPT-J2270 Morphine Sulfate 10 mg 14:25:44 INSURANCE CLAIM REPRESENTATIVE CPT-J2550 Phenergan 12.5 mg (Promethazine) 14:25:44 INSURANCE CLAIM REPRESENTATIVE CPT-53169 Abx/Therapy Injection 14:25:44 INSURANCE CLAIM REPRESENTATIVE CPT-J2550 Phenergan 12.5 mg (Promethazine) 14:08:03 INSURANCE CLAIM REPRESENTATIVE CPT-J2270 Morphine Sulfate 10 mg 14:08:03 INSURANCE CLAIM REPRESENTATIVE CPT-15604 Bladder Scan 15:00:38 CDT CPT-TCMM Transitional Care Mgmt-Moderate 09:52:22 CDT CPT-J1030 Depo Medrol 40 mg (Methyl Prednisolone Acetate) 10:55: 18 CDT CPT-J1100 Decadron 4mg (Dexamethasone) 10:55:18 CDT CPT-53797 Abx/Therapy Injection 10:55:18 CDT CPT-J1030 Depo Medrol 40 mg (Methyl Prednisolone Acetate) 10:22: 32 CDT CPT-J1100 Decadron 4mg (Dexamethasone) 10:22:32 CDT CPT-55938 Postop F/U Visit 14:37:13 CDT CPT-24519 Ankle Complete - Min 3V 17:11:58 CDT CPT-13380 Foot comp min 3V 17:11:58 CDT CPT-95613 Bladder Scan 09:56:58 CDT CPT-81671 Postop F/U Visit 09:56:58 CDT CPT-54223 Cystoscopy 09:02:42 CDT CPT-83572 Bladder Scan 09:02:42 CDT CPT-73491 Abd single AP View 16:00:35 CDT CPT-71124 Administration single or combination vaccine inc oral 10 :15:43 CDT CPT-61631 Influenza split virus > age 3 10:15:43 CDT CPT-03555 Nail Avulsion 09:24:57 CDT CPT-OV Office Visit 11:15:41 CDT CPT-14933 Abx/Therapy Injection 10:51:30 CDT CPT-J3301 Kenalog 40 mg (Triamcinolone Acetonide) 10:25:12 CDT CPT-J1100 Decadron 4mg (Dexamethasone) 10:25:12 CDT CPT-93689 Anoscopy diagnostic 10:36:12 CDT CPT-OV Office Visit 15:34:31 CDT CPT-38263 Abx/Therapy Injection 08:21:15 INSURANCE CLAIM REPRESENTATIVE CPT-J1885 Toradol 60 mg (Ketorolac) 10:46:35 INSURANCE CLAIM REPRESENTATIVE CPT-OV Office Visit 19:51:16 INSURANCE CLAIM REPRESENTATIVE CPT-96644 Spec Collection and Handling Fee 14:34:18 INSURANCE CLAIM REPRESENTATIVE CPT-PV Prev. Care Visit 14:19:18 INSURANCE CLAIM REPRESENTATIVE CPT-78330 Postop F/U Visit 14:47:51 INSURANCE CLAIM REPRESENTATIVE CPT-78693 Postop F/U Visit 15:15:14 INSURANCE CLAIM REPRESENTATIVE CPT-46871 Postop F/U Visit 14:41:43 CDT CPT-27073 Postop F/U Visit 15:47:46 CDT CPT-OV Office Visit 15:27:23 CDT CPT-OV Office Visit 17:20:34 CDT CPT-62044 Abx/Therapy Injection 15:05:57 CDT CPT-J1100 Decadron 8mg (Dexamethasone) 14:44:57 CDT CPT-J1040 Depo Medrol 80 mg (Methyl Prednisolone Acetate) 14:44: 57 CDT CPT-JTINJ Joint Injection 10:17:37 CDT CPT-89890 Administration 2+ single or combination vaccines inc oral 13:01:46 INSURANCE CLAIM REPRESENTATIVE CPT-75687 Administration single or combination vaccine inc oral 13 :01:46 INSURANCE CLAIM REPRESENTATIVE CPT-60173 Pneumovax 13:01:46 INSURANCE CLAIM REPRESENTATIVE CPT-49182 Influenza split virus > age 3 13:01:46 INSURANCE CLAIM REPRESENTATIVE CPT-15798 Administration single or combination vaccine inc oral 08 :56:49 CDT CPT-87576 Tdap 08:56:49 CDT
--- OUTSIDE RECORDS SUMMARY | 2017-03-22 00:49 | XMS REPORT | Clinical Summary ---
Author Author Admin, MARGRET Organization [employer] Address Unknown Phone Unavailable Allergies, Adverse Reactions, Alerts Allergy Name Reaction Description Start Date Severity Status Provider VALENTIN Critical Active Rodrigo Montemayorl [employer] CHLORHEXIDINE GLUCONATE tongue and gums swollen Critical Active Hoa Kabaford [facility] [place]FLEX Rash Critical Active Rowenaina Frazell [employer] TRAZODONE HCL sees things Critical Active Dewayne [...] infarction, hx of 412 Active Hoa Otto [facility] Old myocardial infarction Pelvic pain 789.09 [...] Back pain, thoracic region, left 724.1 Resolved Gba Padron MD Pain in thoracic spine Abdominal [...] daily for 2 days end 02/05/17 PREDNISONE 61656876304 Active Gab Padron MD Active ZANTAC 150 MG TAB 1 by mouth twice daily RANITIDINE HCL 28383106777 Active Gab Padron MD Active TRIAMCINOLONE ACETONIDE 0.1 % CREA Apply to affected area 3 times daily for up to 2 weeks TRIAMCINOLONE ACETONIDE 42525631464 Active Tisha Lambert APRN Active LISINOPRIL 40 MG TABS 1 tablet by mouth daily LISINOPRIL 04543499041 Active Tisha Lambert APRN Active IBUPROFEN 600 MG TAB 1 tablet by mouth every 6 hours for 7 days, then 1 tablet every 6 hours as needed. Take with food IBUPROFEN 41035482365 No Longer Active Tisha Lambert APRN Active PREDNISONE 20 MG TAB 1 tab twice daily for 3 day, then one daily for three days PREDNISONE 67450792083 No Longer Active Tisha Lambert APRN Active TRIAMCINOLONE ACETONIDE 0.1 % CREA apply bid sparingly to rash TRIAMCINOLONE ACETONIDE 50466000133 No Longer Active Gab Padron MD Active TRAMADOL HCL 50 MG TABS 1 tab po every 6 hrs prn pain TRAMADOL HCL 75264595457 No Longer Active Gab Padron MD Active BACTRIM DS 800-160 MG TAB 1 tab by mouth twice daily TRIMETHOPRIM-SULFAMETHOXAZOLE 05629449601 No Longer Active Tisha Lambert APRN Active ADVAIR DISKUS 250-50 MCG/DOSE AEPB 1 puff BID FLUTICASONE-SALMETEROL 65434382995 No Longer Active Todd Callaway MD Active ONDANSETRON 4 MG TBDP 1 q4h PRN nausea ONDANSETRON 98960288703 No Longer Active LONNIE Iglesias Active FISH OIL 1000 MG CAPS 3 pills daily OMEGA-3 FATTY ACIDS 62227040390 No Longer Active LONNIE Iglesias Active CETIRIZINE HCL 10 MG ORAL TABS 1 po qd PRN Allergies CETIRIZINE HCL 88835830824 Active Gab Padron MD Active CLARITIN 10 MG TAB 1 tablet by mouth daily as needed for allergies LORATADINE 41224909756 No Longer Active Gab Padron MD Active PREDNISONE 20 MG TAB take 3 tabs daily for 3 days, 2 tabs daily for 3 days, 1 tab daily for 3 days, 1/2 tab daily for 3 days PREDNISONE 03201722180 No Longer Active Tisha Lambert APRN Active PREDNISONE 20 MG TAB 2 tabs daily for 3 days, 1 tab daily for 3 days, 1/2 tab daily for 2 days PREDNISONE 47633531277 No Longer Active aGb Padron MD Active ZOFRAN ODT 4 MG TBDP 1 po q6hr PRN Nausea ONDANSETRON 60255465011 Active Gab Padron MD Active BACTRIM DS 800-160 MG TAB 1 tab by mouth twice daily TRIMETHOPRIM-SULFAMETHOXAZOLE 41746418252 No Longer Active Gab Padron MD Active LEVOTHYROXINE SODIUM 75 MCG TABS Take 1 tab daily LEVOTHYROXINE SODIUM 46653075810 No Longer Active Mariana HICKEYA Active SYNTHROID 88 MCG ORAL TABS Take one by mouth daily LEVOTHYROXINE SODIUM 53145315467 Active Tisha Lambert APRN Active CHERATUSSIN AC 100-10 MG/5ML SYRP 1 tsp by mouth every 4 hours as needed for cough GUAIFENESIN-CODEINE 25041803041 No Longer Active Gab Padron MD Active POLYTRIM 38702-2.1 UNIT/ML-% SOLN 1 gtt to affected eye q3h x 7 days POLYMYXIN B-TRIMETHOPRIM 84621197000 No Longer Active Gab Padron MD Active FLUTICASONE PROPIONATE 50 MCG/ACT SUSP 1 to 2 sprays each nostril daily 04/21 FLUTICASONE PROPIONATE 36326017071 No Longer Active Gab Padron MD Active TRILEPTAL 600 MG TABS Take one 1 tablet in Am and 1 tablet at night OXCARBAZEPINE 17471796912 Active Gab Padron MD Active CEFDINIR 300 MG CAPS 1 po BID x 10 days CEFDINIR 75464518661 No Longer Active Rodrigo Sarah APRN Active CEFTIN 500 MG TAB 1 twice a day CEFUROXIME AXETIL 91921350802 No Longer Active Gab Padron MD Active AZITHROMYCIN 250 MG TABS 2 po qd x 1 day, then 1 po qd x 4 days AZITHROMYCIN 17002687830 No Longer Active Rodrigo Sarah APRN Active OXYCODONE HCL 5 MG ORAL CAPS 1 TAB PO Q HS OXYCODONE HCL 54083251327 No Longer Active Rodrigo Sarah APRN Active NIASPAN 500 MG ORAL CR-TABS 1 pill nightly x 1 week, then 2 pills nightly x 1 week, then 3 pills nightly x 1 week, then 4 pills nightly NIACIN (ANTIHYPERLIPIDEMIC) 89906958477 No Longer Active Rodrigo Sarah APRN Active NIACIN 500 MG TABS 1 pill by mouth nightly x 1 week, then 2 pills x 1 week, then 3 pills x 1 week, then 4 pills nightly - take after evening meal, with applesauce or an apple NIACIN 50258447752 No Longer Active Yolande Lindsay MD PhD Active FUROSEMIDE 20 MG TAB 1 tablet by mouth daily FUROSEMIDE 88498972924 Active Gab Padron MD Active FUROSEMIDE 20 MG TABS 1 pill by mouth daily, for edema FUROSEMIDE 57239748868 No Longer Active Yolande Lindsay MD PhD Active ATORVASTATIN CALCIUM 10 MG TABS 1 pill by mouth daily, for cholesterol 09/06 ATORVASTATIN CALCIUM 80914541976 Active Gab Padron MD Active CALCIUM 600+D PLUS MINERALS 600-400 MG-UNIT ORAL CHEW 1 tab by mouth daily CALCIUM CARBONATE-VIT D-MIN 01812297954 No Longer Active Yolande Lindsay MD PhD Active CYCLOBENZAPRINE HCL 10 MG TABS 1 tablet by mouth three times daily as needed for muscle spasm/pain CYCLOBENZAPRINE HCL 23400593413 Active Yolande Lindsay MD PhD Active ADULT ASPIRIN EC LOW STRENGTH 81 MG TBEC Take 1 tablet by mouth daily 2014 ASPIRIN 61481457236 No Longer Active Yolande Lindsay MD PhD Active ZOFRAN ODT 4 MG TBDP 1 pill dissolved by mouth every 4 hours if needed for nausea ONDANSETRON 57149973601 No Longer Active Yolande Lindsay MD PhD Active CEFTIN 500 MG TAB 1 twice a day CEFUROXIME AXETIL 13383900268 No Longer Active Yolande Lindsay MD PhD Active ALBUTEROL SULFATE 0.083 % NEBU SOLN one vial per nebulizer every 4-6 hours as needed ALBUTEROL SULFATE 72733925396 No Longer Active Alexis Ordaz MD Active DOXYCYCLINE HYCLATE 100 MG CAP 1 cap by mouth twice daily DOXYCYCLINE HYCLATE 40304156479 No Longer Active Yolande Lindsay MD PhD Active CYCLOBENZAPRINE HCL 10 MG TABS 1/2 - 1 tab by mouth three times daily if needed for spasms/pain CYCLOBENZAPRINE HCL 71942938800 No Longer Active Yolande Lindsay MD PhD Active AZITHROMYCIN 250 MG TABS 2 pills on day 1, then 1 pill daily x 4 days AZITHROMYCIN 40854359502 No Longer Active Yolande Lindsay MD PhD Active XOPENEX 1.25 MG/3ML NEBU 1 neb every 4 hours if needed for cough/congestion LEVALBUTEROL HCL 72800328469 No Longer Active Yolande Lindsay MD PhD Active DOXYCYCLINE HYCLATE 100 MG TAB 1 tab twice a day for 14 days 2013 DOXYCYCLINE HYCLATE 35595103934 No Longer Active Yolande Lindsay MD PhD Active PREVACID 30 MG CPDR Take 1 tablet by mouth daily-PRN LANSOPRAZOLE 60808006414 No Longer Active Yolande Lindsay MD PhD Active PA VITAMIN D-3 2000 UNIT CAPS 1 CAP PO DAILY CHOLECALCIFEROL 09647506058 No Longer Active Yolande Lindsay MD PhD Active CEFDINIR 300 MG CAPS by mouth twice a day CEFDINIR 73663904589 No Longer Active Gab Padron MD Active TOPAMAX 50 MG TABS 1 PO twice daily TOPIRAMATE 31256507096 Active Yolande Lindsay MD PhD Active AZITHROMYCIN 250 MG TABS 2 po qd x 1 day, then 1 po qd x 4 days AZITHROMYCIN 39263488052 No Longer Active Yolande Lindsay MD PhD Active DICLOFENAC SODIUM 75 MG TBEC 1 tablet by q 12 hours PRN headaches DICLOFENAC SODIUM 72693149538 No Longer Active Yolande Lindsay MD PhD Active FLONASE 50 MCG/ACT SUSP 1 spray each nostril am and hs FLUTICASONE PROPIONATE 08704354204 No Longer Active Todd Callaway MD Active ANUSOL-HC 25 MG SUPPOSITORY 1 rectally twice a day as needed for hemorrhoids HYDROCORTISONE JAYDEN (RECTAL) 25403994158 No Longer Active Yolande Lindsay MD PhD Active ANUSOL-HC 25 MG SUPPOSITORY 1 suppository rectally each evening as needed for anal fissure HYDROCORTISONE JAYDEN (RECTAL) 40498416132 No Longer Active LONNIE Iglesias Active VALIUM 5 MG TAB 1 po 30 minutes prior to your MRI DIAZEPAM 91824223879 No Longer Active LONNIE Iglesias Active METHOCARBAMOL 750 MG TABS 1 PO QID PRN METHOCARBAMOL 67528494334 No Longer Active Daphne Wetzel APRN Active NITROSTAT 0.4 MG SUBL as directed NITROGLYCERIN 00455096696 No Longer Active Rodrigo Sarah APRN Active ROBAXIN-750 750 MG TABS 2 four times a day for 3 days as needed for muscle spasm, then 1 four times a day as needed METHOCARBAMOL 32652598426 No Longer Active Rodrigo Sarah APRN Active HYDROCODONE-ACETAMINOPHEN 5-325 MG TABS 1 q 4-6 hrs prn HYDROCODONE-ACETAMINOPHEN 83512018797 No Longer Active Silvestrellnacho Sarah APRN Active VERAPAMIL HCL CR 180 MG CR-TABS TAKE 1 TAB DAILY VERAPAMIL HCL 69229350213 No Longer Active Yolande Lidnsay MD PhD Active BACTRIM DS 800-160 MG TAB 1 tab by mouth twice daily TRIMETHOPRIM-SULFAMETHOXAZOLE 75525350100 No Longer Active Yolande Lindsay MD PhD Active NEXIUM 40 MG PACK 1 by mouth daily ESOMEPRAZOLE MAGNESIUM 72524736971 No Longer Active Des Hines MD Active EPIPEN 2-CHARLETTE 0.3 MG/0.3ML OMARI as need for allergic reaction EPINEPHRINE 00848651767 Active Yolande Lindsay MD PhD Active NEXIUM 40 MG CPDR 1 PO Q D DAY ESOMEPRAZOLE MAGNESIUM 08357180573 No Longer Active Sadia Perry RN Active NEXIUM 40 MG PACK 1 by mouth daily NEXIUM 40 MG PACK ESOMEPRAZOLE MAGNESIUM Inactive VERAPAMIL HCL CR 180 MG CR-TABS TAKE 1 TAB DAILY VERAPAMIL HCL CR 180 MG CR-TABS VERAPAMIL HCL Inactive HYDROCODONE-ACETAMINOPHEN 5-325 MG TABS 1 q 4-6 hrs prn HYDROCODONE-ACETAMINOPHEN 5-325 MG TABS 419160 HYDROCODONE-ACETAMINOPHEN Inactive ROBAXIN-750 750 MG TABS 2 four times a day for 3 days as needed for muscle spasm, then 1 four times a day as needed ROBAXIN-750 750 MG TABS 243632 METHOCARBAMOL Inactive NITROSTAT 0.4 MG SUBL as directed NITROSTAT 0.4 MG SUBL 667381 NITROGLYCERIN Inactive METHOCARBAMOL 750 MG TABS 1 PO QID PRN METHOCARBAMOL 750 MG TABS 766877 METHOCARBAMOL Inactive VALIUM 5 MG TAB 1 po 30 minutes prior to your MRI VALIUM 5 MG TAB 606588 DIAZEPAM Inactive ANUSOL-HC 25 MG SUPPOSITORY 1 suppository rectally each evening as needed for anal fissure ANUSOL-HC 25 MG SUPPOSITORY 9572613 HYDROCORTISONE JAYDEN (RECTAL) Inactive ANUSOL-HC 25 MG SUPPOSITORY 1 rectally twice a day as needed for hemorrhoids ANUSOL-HC 25 MG SUPPOSITORY 2066397 HYDROCORTISONE JAYDEN (RECTAL) Inactive FLONASE 50 MCG/ACT SUSP 1 spray each nostril am and hs FLONASE 50 MCG/ACT SUSP 5812981 FLUTICASONE PROPIONATE Inactive DICLOFENAC SODIUM 75 MG TBEC 1 tablet by q 12 hours PRN headaches DICLOFENAC SODIUM 75 MG TBEC 509989 DICLOFENAC SODIUM Inactive PA VITAMIN D-3 2000 UNIT CAPS 1 CAP PO DAILY PA VITAMIN D-3 2000 UNIT CAPS CHOLECALCIFEROL Inactive PREVACID 30 MG CPDR Take 1 tablet by mouth daily-PRN PREVACID 30 MG CPDR 903786 LANSOPRAZOLE Inactive DOXYCYCLINE HYCLATE 100 MG TAB 1 tab twice a day for 14 days 2013 DOXYCYCLINE HYCLATE 100 MG TAB 2894384 DOXYCYCLINE HYCLATE Inactive XOPENEX 1.25 MG/3ML NEBU 1 neb every 4 hours if needed for cough/congestion XOPENEX 1.25 MG/3ML NEBU 242451 LEVALBUTEROL HCL Inactive CYCLOBENZAPRINE HCL 10 MG TABS 1/2 - 1 tab by mouth three times daily if needed for spasms/pain CYCLOBENZAPRINE HCL 10 MG TABS 502747 CYCLOBENZAPRINE HCL Inactive ALBUTEROL SULFATE 0.083 % NEBU SOLN one vial per nebulizer every 4-6 hours as needed ALBUTEROL SULFATE 0.083 % NEBU SOLN 072711 ALBUTEROL SULFATE Inactive CEFTIN 500 MG TAB 1 twice a day CEFTIN 500 MG TAB 376123 CEFUROXIME AXETIL Inactive ZOFRAN ODT 4 MG TBDP 1 pill dissolved by mouth every 4 hours if needed for nausea ZOFRAN ODT 4 MG TBDP 701892 ONDANSETRON Inactive ADULT ASPIRIN EC LOW STRENGTH 81 MG TBEC Take 1 tablet by mouth daily 2014 ADULT ASPIRIN EC LOW STRENGTH 81 MG TBEC 230644 ASPIRIN Inactive CALCIUM 600+D PLUS MINERALS 600-400 [...] or an apple NIACIN 500 MG TABS 829107 NIACIN Inactive NIASPAN 500 MG ORAL CR-TABS 1 pill nightly x 1 week, then 2 pills nightly x 1 week, then 3 pills nightly x 1 week, then 4 pills nightly NIASPAN 500 MG ORAL CR-TABS NIACIN (ANTIHYPERLIPIDEMIC) Inactive OXYCODONE HCL 5 MG ORAL CAPS 1 TAB PO Q HS OXYCODONE HCL 5 MG ORAL CAPS 1005003 OXYCODONE HCL Inactive FLUTICASONE PROPIONATE 50 MCG/ACT SUSP 1 to 2 sprays each nostril daily 04/21 FLUTICASONE PROPIONATE 50 MCG/ACT SUSP 9045717 FLUTICASONE PROPIONATE Inactive POLYTRIM 44699-4.1 UNIT/ML-% SOLN 1 gtt to affected eye q3h x 7 days POLYTRIM 84646-2.1 UNIT/ML-% SOLN 942662 POLYMYXIN B- TRIMETHOPRIM Inactive CHERATUSSIN AC 100-10 MG/5ML SYRP 1 tsp by mouth every 4 hours as needed for cough CHERATUSSIN AC 100-10 MG/5ML SYRP 436531 GUAIFENESIN-CODEINE Inactive LEVOTHYROXINE SODIUM 75 MCG TABS Take 1 tab daily LEVOTHYROXINE SODIUM 75 MCG TABS 063705 LEVOTHYROXINE SODIUM Inactive CLARITIN 10 MG TAB 1 tablet by mouth daily as needed for allergies CLARITIN 10 MG TAB 659724 LORATADINE Inactive FISH OIL 1000 MG CAPS 3 pills daily FISH OIL 1000 MG CAPS OMEGA-3 FATTY ACIDS Inactive ONDANSETRON 4 MG TBDP 1 q4h PRN nausea ONDANSETRON 4 MG TBDP 696572 ONDANSETRON Inactive ADVAIR DISKUS 250-50 MCG/DOSE AEPB 1 puff BID ADVAIR DISKUS 250-50 MCG/DOSE AEPB FLUTICASONE-SALMETEROL Inactive TRAMADOL HCL 50 MG TABS 1 tab po every 6 hrs prn pain TRAMADOL HCL 50 MG TABS 774764 TRAMADOL HCL Inactive TRIAMCINOLONE ACETONIDE 0.1 % CREA apply bid sparingly to rash TRIAMCINOLONE ACETONIDE 0.1 % CREA 3465456 TRIAMCINOLONE ACETONIDE Inactive PREDNISONE 20 MG TAB 1 tab twice daily for 3 day, then one daily for three days PREDNISONE 20 MG TAB 266956 PREDNISONE Inactive IBUPROFEN 600 MG TAB 1 tablet by mouth every 6 hours for 7 days, then 1 tablet every 6 hours as needed. Take with food IBUPROFEN 600 MG TAB 533867 IBUPROFEN Inactive BACTRIM DS 800-160 MG TAB 1 tab by mouth twice daily BACTRIM DS 800-160 MG TAB 19820606 TRIMETHOPRIM-SULFAMETHOXAZOLE Inactive AZITHROMYCIN 250 MG TABS 2 po qd x 1 day, then 1 po qd x 4 days AZITHROMYCIN 250 MG TABS 202056 AZITHROMYCIN Inactive CEFDINIR 300 MG CAPS by mouth twice a day CEFDINIR 300 MG CAPS 20020708 CEFDINIR Inactive AZITHROMYCIN 250 MG TABS 2 pills on day 1, then 1 pill daily x 4 days AZITHROMYCIN 250 MG TABS 758907 AZITHROMYCIN Inactive DOXYCYCLINE HYCLATE 100 MG CAP 1 cap by mouth twice daily DOXYCYCLINE HYCLATE 100 MG CAP 1478276 DOXYCYCLINE HYCLATE Inactive FUROSEMIDE 20 MG TABS 1 pill by mouth daily, for edema FUROSEMIDE 20 MG TABS 201798 FUROSEMIDE Inactive AZITHROMYCIN 250 MG TABS 2 po qd x 1 day, then 1 po qd x 4 days AZITHROMYCIN 250 MG TABS 713798 AZITHROMYCIN Inactive CEFTIN 500 MG TAB 1 twice a day CEFTIN 500 MG TAB 303110 CEFUROXIME AXETIL Inactive CEFDINIR 300 MG CAPS [...] for 2 days PREDNISONE 20 MG TAB 168674 PREDNISONE Inactive PREDNISONE 20 MG TAB take 3 tabs daily for 3 days, 2 tabs daily for 3 days, 1 tab daily for 3 days, 1/2 tab daily for 3 days PREDNISONE 20 MG TAB 649457 PREDNISONE Inactive BACTRIM DS 800-160 MG TAB 1 tab by mouth twice daily BACTRIM DS 800-160 MG TAB 405630 TRIMETHOPRIM-SULFAMETHOXAZOLE Inactive Immunizations Vaccine Administration Date Value Standard Description Seasonal influenza vaccine, injectable, containing preservative, for > 3 years old (Afluria, FluLaval, Fluzone, Fluvirin, Fluarix, Agriflu(>=18 yo)) Fluzone (>3 yrs.) [BOR007] Influenza, seasonal, injectable influenza immunization (Flu Vax) has been administered Influenza - Unspecified Formulation [CVX88] influenza virus vaccine, unspecified formulation pneumococcal immunization administered Pneumovax 23 [CVX33] pneumococcal polysaccharide vaccine, 23 valent Seasonal influenza vaccine, injectable, containing preservative, for > 3 years old (Afluria, FluLaval, Fluzone, Fluvirin, Fluarix, Agriflu(>=18 yo)) Fluzone (>3 yrs.) [YGQ952] Influenza, seasonal, injectable dT (Diphtheria and Tetanus) booster given given Td(adult) unspecified formulation Boostrix (Tetanus toxoid, reduced diphtheria toxoid and acellular pertussis vaccine, adsorbed), booster Boostrix [VMX761] tetanus toxoid, reduced diphtheria toxoid, and acellular [...] PANEL - Chemistry cholesterol, serum 166 mg/dL 746-260 8765/12/06 triglyceride, serum, fasting 86 mg/dL 30-200 HDL [...] Thyroxine (L) - Chemistry thyroxine, serum, free 0.83 ng/dL 0.76-1.46 TSH 0.62 m[iU]/mL 0.36-3.74 Office Visit: 6 MO F/U - Basic [...] negative Encounters Code Encounter Date Provider Facility CPT-44090 Level 3 Est. Patient 17:32:14 CDT Gab Padron MD [facility] CPT-30911 Level 3 Est. Patient 10:28:15 CDT Tisha Lambert [facility] CPT-96191 Level 3 Est. Patient 14:50:29 CDT Gab Padron MD [facility] CPT-20896 Level 3 Est. Patient 14:46:09 CDT Tisha Lambert [facility] CPT-13565 Level 4 New Patient 16:13:15 CDT Todd Callaway MD [facility] CPT-65017 Level 4 Est. Patient 13:18:33 CDT Gab Padron MD [facility] CPT-55741 Level 3 Est. Patient 15:20:50 CDT Jared Og MD [facility] CPT-67866 Level 3 Est. Patient 17:43:55 NETBACKUP ADMINISTRATOR Gab Padron MD [facility] CPT-66638 Level 3 Est. Patient 17:07:49 NETBACKUP ADMINISTRATOR Jared Og MD [facility] CPT-96004 Level 4 Est. Patient 19:55:18 NETBACKUP ADMINISTRATOR Jared Og MD [facility] CPT-06151 Level 3 Est. Patient 20:13:34 NETBACKUP ADMINISTRATOR Jared Og MD [facility] CPT-60740 Level 4 Est. Patient 16:31:27 CDT Gab Padron MD [facility] CPT-53935 Level 2 Est. Patient 12:23:38 CDT Jared Og MD [facility] CPT-68420 Level 3 Est. Patient 11:01:51 CDT Gab Padron MD [facility] CPT-34382 Level 3 Est. Patient 15:27:02 CDT Jared Og MD [facility] CPT-71149 Level 4 Est. Patient 09:25:27 CDT Gab Padron MD [facility] CPT-34140 Level 3 Est. Patient 10:29:41 CDT Rodrigo Sarah [facility]-31021 Level 4 Est. Patient 17:51:05 CDT Gab Padron MD [facility]-98367 Level 3 Est. Patient 14:18:08 CDT Gab Padron MD [facility]-89357 Level 4 Est. Patient 10:18:54 CDT Gab Padron MD [facility]-06521 Level 3 Est. Patient 11:30:07 CDT Rodrigo Sarah [facility]-04193 Level 4 Est. Patient 21:02:30 NETBACKUP ADMINISTRATOR Gab Padron MD [facility]-05981 Level 3 Est. Patient 11:02:19 NETBACKUP ADMINISTRATOR Gab Padron MD [facility]-67886 Level 4 Est. Patient 22:24:31 NETBACKUP ADMINISTRATOR Gab Padron MD [facility]-01524 Level 3 Est. Patient 18:33:46 NETBACKUP ADMINISTRATOR Gab Padron MD [facility]-01541 Level 3 Est. Patient 16:19:11 CDT Yolande Lindsay MD [facility]-31103 Level 3 Est. Patient 18:59:14 CDT Yolande Lindsay MD [facility]-66925 Level 4 Est. Patient 21:29:26 CDT Yolande Lindsay MD [facility]-24860 Level 3 Est. Patient 07:37:45 CDT Yolande Lindsay MD [facility]00946 Level 3 Est. Patient 17:03:46 CDT Yolande Lindsay MD [facility]-21390 Level 4 Est. Patient 20:02:13 NETBACKUP ADMINISTRATOR Yolande Lindsay MD [facility] CPT-69605 Level 3 Est. Patient 16:02:07 NETBACKUP ADMINISTRATOR Alexis Ordaz MD [facility] CPT-82127 Level 3 Est. Patient 12:41:24 NETBACKUP ADMINISTRATOR Yolande Lindsay MD [facility]-69156 Level 3 Est. Patient 15:41:20 NETBACKUP ADMINISTRATOR Yolande Lindsay MD [facility]-56291 Level 3 Est. Patient 13:20:02 NETBACKUP ADMINISTRATOR Yolande Lindsay MD [facility] CPT-64799 Level 3 Est. Patient 15:00:38 CDT Jaerd Og MD [facility]-03597 Level 3 Est. Patient 10:22:32 CDT Yolande Lindsay MD [facility]-51483 Level 3 Est. Patient 17:12:58 CDT Yolande Lindsay MD [facility] CPT-61013 Level 4 Est. Patient 13:30:58 CDT Yolande Lindsay MD [facility] CPT-05845 Level 4 New Patient 09:02:42 CDT Jared Og MD [facility]-83075 Level 3 Est. Patient 08:19:07 CDT Yolande Lindsay MD [facility] CPT-47110 Level 3 Est. Patient 12:00:13 NETBACKUP ADMINISTRATOR Gab Padron MD [facility] CPT-74662 Level 3 Est. Patient 16:15:23 NETBACKUP ADMINISTRATOR Yolande Lindsay MD [facility]-96657 Level 2 Est. Patient 19:47:15 CDT Yolande Lindsay MD [facility]-15105 Level 3 Est. Patient 21:38:31 CDT Yolande Lindsay MD [facility]-73322 Level 3 Est. Patient 10:25:12 CDT Adiel PERAZA [facility]-14041 Level 4 Est. Patient 10:51:58 CDT Yolande Lindsay MD [facility]-53630 Level 3 Est. Patient 14:04:55 NETBACKUP ADMINISTRATOR Rodrigo Sarah [facility]-00444 Level 3 Est. Patient 10:46:35 NETBACKUP ADMINISTRATOR Rodrigo Sarah [facility]-03352 Level 3 Est. Patient 14:24:37 NETBACKUP ADMINISTRATOR Yolande Lindsay MD [facility]-38647 Level 3 Est. Patient 17:41:58 NETBACKUP ADMINISTRATOR Yolande Lindsay MD [facility]-03759 Level 2 Est. Patient 22:01:41 NETBACKUP ADMINISTRATOR Rodrigo Sarah [facility]-06975 Level 2 Est. Patient 22:01:11 NETBACKUP ADMINISTRATOR Rodrigo Sarah [facility]-32198 Level 3 Est. Patient 10:12:29 NETBACKUP ADMINISTRATOR Rodrigo Sarah [facility]-37334 Level 3 Est. Patient 11:05:44 CDT Alexis Ordaz MD [facility]-38986 Level 3 Est. Patient 14:57:20 CDT Yolande Lindsay MD [facility]-30038 Level 3 Est. Patient 14:40:57 CDT Yolande Lindsay MD [facility]-00197 Level 3 Est. Patient 20:55:40 CDT Yolande Lindsay MD [facility]-22557 Level 3 Est. Patient 12:42:38 NETBACKUP ADMINISTRATOR Yolande Lindsay MD [facility]-44904 Level 3 Est. Patient 11:54:49 NETBACKUP ADMINISTRATOR Des Hines MD [facility] CPT-13112 Level 3 Est. Patient 17:06:38 CDT Dewayne PERAZA [facility] Procedures Code Procedure Name Date Entry Date Standard Description CPT-J2930 Solu Medrol 125 mg (Methyl Prednisolone Sodium Succinate) 13:19:02 CDT CPT-76860 Abx/Therapy Injection 13:19:02 CDT CPT-J2930 Solu Medrol 125 mg (Methyl Prednisolone Sodium Succinate) 13:05:03 CDT CPT-75980 Hip, complete, 2-3 views - XRAY USE ONLY 17:19:04 NETBACKUP ADMINISTRATOR CPT-65804 Venipuncture Draw Fee 08:37:59 NETBACKUP ADMINISTRATOR CPT-04007 Liver Profile - LAB USE ONLY 08:37:59 NETBACKUP ADMINISTRATOR CPT-59966 Lipid - LAB USE ONLY 08:37:58 NETBACKUP ADMINISTRATOR CPT-88635 First Vx - Ix admin via ID IM or jet injects without counseling by physician 11:52:31 CDT CPT-77401 Fluzone Preservative Free Intramuscular Suspension 11:52 :31 CDT CPT-22146 Foot, left, comp min 3V - XRAY USE ONLY 09:24:54 CDT CPT-86779 Abd single AP View - XRAY USE ONLY 11:16:17 CDT CPT-99323 T spine AP/ Lat - XRAY USE ONLY 09:34:21 CDT CPT-96208 Chest 2V Frontal and Lat - XRAY USE ONLY 10:48:51 CDT CPT-38156 LS spine comp w obliq 13:28:00 NETBACKUP ADMINISTRATOR CPT-J1040 Depo Medrol 80 mg (Methyl Prednisolone Acetate) 10:51: 28 NETBACKUP ADMINISTRATOR CPT-J1100 Decadron 8mg (Dexamethasone) 10:51:28 NETBACKUP ADMINISTRATOR CPT-53663 Abx/Therapy Injection 10:51:28 NETBACKUP ADMINISTRATOR CPT-J1100 Decadron 8mg (Dexamethasone) 21:02:30 NETBACKUP ADMINISTRATOR CPT-J1040 Depo Medrol 80 mg (Methyl Prednisolone Acetate) 21:02: 30 NETBACKUP ADMINISTRATOR [id number] Event Monitor - MC Transmission 09:12:32 CDT 08/06 [id number] Event Monitor - MC review and interp 09:12:32 CDT [id number] Event Monitor - MC recording 09:12:32 CDT CPT-19242 EKG Trac and Interp 16:50:22 CDT CPT-J1030 Depo Medrol 40 mg (Methyl Prednisolone Acetate) 17:05: 54 CDT CPT-J1100 Decadron 4mg (Dexamethasone) 17:05:54 CDT CPT-11773 Abx/Therapy Injection 17:05:54 CDT CPT-J1100 Decadron 4mg (Dexamethasone) 16:55:28 CDT CPT-J1030 Depo Medrol 40 mg (Methyl Prednisolone Acetate) 16:55: 28 CDT CPT-02648 Ankle Complete - Min 3V 15:58:50 CDT CPT-53608 Knee 3V 15:58:50 CDT CPT-28034 Hip comp min 2V 15:58:50 CDT CPT-J2270 Morphine Sulfate 10 mg 14:25:44 NETBACKUP ADMINISTRATOR CPT-J2550 Phenergan 12.5 mg (Promethazine) 14:25:44 NETBACKUP ADMINISTRATOR CPT-73466 Abx/Therapy Injection 14:25:44 NETBACKUP ADMINISTRATOR CPT-J2550 Phenergan 12.5 mg (Promethazine) 14:08:03 NETBACKUP ADMINISTRATOR CPT-J2270 Morphine Sulfate 10 mg 14:08:03 NETBACKUP ADMINISTRATOR CPT-93604 Bladder Scan 15:00:38 CDT CPT-TCMM Transitional Care Mgmt-Moderate 09:52:22 CDT CPT-J1030 Depo Medrol 40 mg (Methyl Prednisolone Acetate) 10:55: 18 CDT CPT-J1100 Decadron 4mg (Dexamethasone) 10:55:18 CDT CPT-39750 Abx/Therapy Injection 10:55:18 CDT CPT-J1030 Depo Medrol 40 mg (Methyl Prednisolone Acetate) 10:22: 32 CDT CPT-J1100 Decadron 4mg (Dexamethasone) 10:22:32 CDT CPT-32828 Postop F/U Visit 14:37:13 CDT CPT-58514 Ankle Complete - Min 3V 17:11:58 CDT CPT-65430 Foot comp min 3V 17:11:58 CDT CPT-44712 Bladder Scan 09:56:58 CDT CPT-95844 Postop F/U Visit 09:56:58 CDT CPT-08360 Cystoscopy 09:02:42 CDT CPT-50517 Bladder Scan 09:02:42 CDT CPT-48827 Abd single AP View 16:00:35 CDT CPT-67089 Administration single or combination vaccine inc oral 10 :15:43 CDT CPT-60019 Influenza split virus > age 3 10:15:43 CDT CPT-06600 Nail Avulsion 09:24:57 CDT CPT-OV Office Visit 11:15:41 CDT CPT-46943 Abx/Therapy Injection 10:51:30 CDT CPT-J3301 Kenalog 40 mg (Triamcinolone Acetonide) 10:25:12 CDT CPT-J1100 Decadron 4mg (Dexamethasone) 10:25:12 CDT CPT-35289 Anoscopy diagnostic 10:36:12 CDT CPT-OV Office Visit 15:34:31 CDT CPT-92485 Abx/Therapy Injection 08:21:15 NETBACKUP ADMINISTRATOR CPT-J1885 Toradol 60 mg (Ketorolac) 10:46:35 NETBACKUP ADMINISTRATOR CPT-OV Office Visit 19:51:16 NETBACKUP ADMINISTRATOR CPT-75855 Spec Collection and Handling Fee 14:34:18 NETBACKUP ADMINISTRATOR CPT-PV Prev. Care Visit 14:19:18 NETBACKUP ADMINISTRATOR CPT-77680 Postop F/U Visit 14:47:51 NETBACKUP ADMINISTRATOR CPT-48384 Postop F/U Visit 15:15:14 NETBACKUP ADMINISTRATOR CPT-17418 Postop F/U Visit 14:41:43 CDT CPT-36253 Postop F/U Visit 15:47:46 CDT CPT-OV Office Visit 15:27:23 CDT CPT-OV Office Visit 17:20:34 CDT CPT-47037 Abx/Therapy Injection 15:05:57 CDT CPT-J1100 Decadron 8mg (Dexamethasone) 14:44:57 CDT CPT-J1040 Depo Medrol 80 mg (Methyl Prednisolone Acetate) 14:44: 57 CDT CPT-JTINJ Joint Injection 10:17:37 CDT CPT-34204 Administration 2+ single or combination vaccines inc oral 13:01:46 NETBACKUP ADMINISTRATOR CPT-96672 Administration single or combination vaccine inc oral 13 :01:46 NETBACKUP ADMINISTRATOR CPT-99891 Pneumovax 13:01:46 NETBACKUP ADMINISTRATOR CPT-03820 Influenza split virus > age 3 13:01:46 NETBACKUP ADMINISTRATOR CPT-61051 Administration single or combination vaccine inc oral 08 :56:49 CDT CPT-54489 Tdap 08:56:49 CDT
--- OUTSIDE RECORDS SUMMARY | 2017-03-22 00:52 | XMS REPORT | Clinical Summary ---
Author Author Admin, MARGRET Organization [facility] Address Unknown Phone Unavailable Allergies, Adverse Reactions, Alerts Allergy Name Reaction Description Start Date Severity Status Provider VALENTIN Critical Active Rodrigo Montemayorl [employer] CHLORHEXIDINE GLUCONATE tongue and gums swollen Critical Active Hoa Kabaford RMA NORFLEX Rash Critical Active Rowenaina Farshadzell [employer] ON[employer] TRAZODONE HCL sees things Critical Active Dewayne [...] of 412 Active Hoa Otto [facility] Old myocardial infarction Pelvic pain 789.09 Active Yolande Lindsay MD PhD Abdominal pain, other specified site; multiple sites Edema 782.3 Active Yolande Lindsay MD PhD Edema Rash 782.1 Active Yolande Lindsay MD PhD Rash and other nonspecific skin eruption Back pain, lumbar 724.2 Active Gab Padron MD Lumbago Cough 786.2 Active Jillina Tyrel [employer] Cough 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 Jillina Frazellilian ZAPATAN 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 Anemia 285.9 Active Gab Padron MD Anemia, unspecified Conjunctivitis 372.30 Active Jillnacho Sarah APRN Conjunctivitis, unspecified Sinusitis 473.9 Active Jillina Frazell [employer] Unspecified sinusitis (chronic) Nonspecific syndrome suggestive of viral illness 079.99 Active Jillina Siml [employer] Unspecified viral infection Laryngitis 464.00 Active Jillina Siml [employer] Acute laryngitis without mention of obstruction Abdominal [...] PhD CHEST PAIN, UNSPECIFIED ICD-786.50 Inactive Yolande iLndsay MD PhD HEADACHE ICD-784.0 Inactive Yolande Lindsay [...] TBDP 1 po q6hr PRN Nausea ONDANSETRON 47017429109 Active Jillina Frazell [employer] ON[employer] Active IBUPROFEN 600 MG TAB 1 tablet by mouth every 6 hours for 7 days, then 1 tablet every 6 hours as needed. Take with food IBUPROFEN 73994293510 Active Jillina Frazell [employer] ONLINE Active BACTRIM DS 800-160 MG TAB 1 tab by mouth twice daily TRIMETHOPRIM-SULFAMETHOXAZOLE 23757235751 No Longer Active Gab Padron MD Active ADVAIR DISKUS 250-50 MCG/DOSE AEPB 1 puff BID FLUTICASONE- SALMETEROL 63782628529 Active Jillina Frazell [employer]ISING [employer] ONLINE Active LEVOTHYROXINE SODIUM 75 MCG TABS Take 1 tab daily LEVOTHYROXINE SODIUM 60555615626 No Longer Active Mariana FLEMING Active SYNTHROID 88 MCG ORAL TABS Take one by mouth daily LEVOTHYROXINE SODIUM 30324574378 Active Mariana HICKEYA Active CHERATUSSIN AC 100-10 MG/5ML SYRP 1 tsp by mouth every 4 hours as needed for cough GUAIFENESIN-CODEINE 47039987443 No Longer Active Gab Padron MD Active POLYTRIM 62298-0.1 UNIT/ML-% SOLN 1 gtt to affected eye q3h x 7 days POLYMYXIN B-TRIMETHOPRIM 24333782888 No Longer Active Gab Padron MD Active FLUTICASONE PROPIONATE 50 MCG/ACT SUSP 1 to 2 sprays each nostril daily 04/21 FLUTICASONE PROPIONATE 91264707816 No Longer Active Gab Padron MD Active TRILEPTAL 600 MG TABS Take one 1 tablet in Am and 1 tablet at night OXCARBAZEPINE 02661496953 Active Gab Padorn MD Active CEFDINIR 300 MG CAPS 1 po BID x 10 days CEFDINIR 18489686872 No Longer Active Rodrigo Sarah APRN Active CEFTIN 500 MG TAB 1 twice a day CEFUROXIME AXETIL 21094356011 No Longer Active Gab Padron MD Active AZITHROMYCIN 250 MG TABS 2 po qd x 1 day, then 1 po qd x 4 days AZITHROMYCIN 50548815110 No Longer Active Rodrigo Sarah APRN Active CLARITIN 10 MG TAB 1 tablet by mouth daily as needed for allergies LORATADINE 41395272177 Active Rodrigo Sarah APRN Active OXYCODONE HCL 5 MG ORAL CAPS 1 TAB PO Q HS OXYCODONE HCL 70219231006 No Longer Active Rodrigo Sarah APRN Active NIASPAN 500 MG ORAL CR-TABS 1 pill nightly x 1 week, then 2 pills nightly x 1 week, then 3 pills nightly x 1 week, then 4 pills nightly NIACIN (ANTIHYPERLIPIDEMIC) 10591836897 No Longer Active Rodrigo Sarah APRN Active NIACIN 500 MG TABS 1 pill by mouth nightly x 1 week, then 2 pills x 1 week, then 3 pills x 1 week, then 4 pills nightly - take after evening meal, with applesauce or an apple NIACIN 28206142153 No Longer Active Yolande Lindsay MD PhD Active FISH OIL 1000 MG CAPS 3 pills daily OMEGA-3 FATTY ACIDS 48125160398 Active Yolande Lindsay MD PhD Active TRIAMCINOLONE ACETONIDE 0.1 % CREA apply bid sparingly to rash TRIAMCINOLONE ACETONIDE 10812568154 Active Yolande Lindsay MD PhD Active FUROSEMIDE 20 MG TAB 1 tablet by mouth daily FUROSEMIDE 64105593362 Active Tisha Lambert APRN Active LISINOPRIL 20 MG ORAL TABS 1 tab by mouth daily LISINOPRIL 05194056880 Active Gab Padron MD Active FUROSEMIDE 20 MG TABS 1 pill by mouth daily, for edema FUROSEMIDE 76092473820 No Longer Active Yolande Lindsay MD PhD Active ATORVASTATIN CALCIUM 10 MG TABS 1 pill by mouth daily, for cholesterol 09/06 ATORVASTATIN CALCIUM 28750536609 Active Gab Padron MD Active CALCIUM 600+D PLUS MINERALS 600-400 MG-UNIT ORAL CHEW 1 tab by mouth daily CALCIUM CARBONATE-VIT D-MIN 46872180676 No Longer Active Yolande Lindsay MD PhD Active CYCLOBENZAPRINE HCL 10 MG TABS 1 tablet by mouth three times daily as needed for muscle spasm/pain CYCLOBENZAPRINE HCL 24038210743 Active Yolande Lindsay MD PhD Active ONDANSETRON 4 MG TBDP 1 q4h PRN nausea ONDANSETRON 91998655425 Active Yolande Lindsay MD PhD Active ADULT ASPIRIN EC LOW STRENGTH 81 MG TBEC Take 1 tablet by mouth daily 2014 ASPIRIN 05161090554 No Longer Active Yolande Lindsay MD PhD Active ZOFRAN ODT 4 MG TBDP 1 pill dissolved by mouth every 4 hours if needed for nausea ONDANSETRON 16282368767 No Longer Active Yolande Lindsay MD PhD Active CEFTIN 500 MG TAB 1 twice a day CEFUROXIME AXETIL 58592029356 No Longer Active Yolande Lindsay MD PhD Active ALBUTEROL SULFATE 0.083 % NEBU SOLN one vial per nebulizer every 4-6 hours as needed ALBUTEROL SULFATE 90378193193 No Longer Active Alexis Ordaz MD Active DOXYCYCLINE HYCLATE 100 MG CAP 1 cap by mouth twice daily DOXYCYCLINE HYCLATE 15596007138 No Longer Active Yolande Lindsay MD PhD Active CYCLOBENZAPRINE HCL 10 MG TABS 1/2 - 1 tab by mouth three times daily if needed for spasms/pain CYCLOBENZAPRINE HCL 22913067658 No Longer Active Yolande Lindsay MD PhD Active AZITHROMYCIN 250 MG TABS 2 pills on day 1, then 1 pill daily x 4 days AZITHROMYCIN 51969565889 No Longer Active Yolande Lindsay MD PhD Active XOPENEX 1.25 MG/3ML NEBU 1 neb every 4 hours if needed for cough/congestion LEVALBUTEROL HCL 64549654114 No Longer Active Yolande Lindsay MD PhD Active DOXYCYCLINE HYCLATE 100 MG TAB 1 tab twice a day for 14 days 2013 DOXYCYCLINE HYCLATE 97600019555 No Longer Active Yolande Lindsay MD PhD Active PREVACID 30 MG CPDR Take 1 tablet by mouth daily-PRN LANSOPRAZOLE 02632468829 No Longer Active Yolande Lindsay MD PhD Active PA VITAMIN D-3 2000 UNIT CAPS 1 CAP PO DAILY CHOLECALCIFEROL 29383365864 No Longer Active Yolande Lindsay MD PhD Active CEFDINIR 300 MG CAPS by mouth twice a day CEFDINIR 06056718076 No Longer Active Gab Padron MD Active TOPAMAX 50 MG TABS 1 PO twice daily TOPIRAMATE 99279606710 Active Yolande Lindsay MD PhD Active AZITHROMYCIN 250 MG TABS 2 po qd x 1 day, then 1 po qd x 4 days AZITHROMYCIN 76521605224 No Longer Active Yolande Lindsay MD PhD Active DICLOFENAC SODIUM 75 MG TBEC 1 tablet by q 12 hours PRN headaches DICLOFENAC SODIUM 20784824107 No Longer Active Yolande Lindsay MD PhD Active FLONASE 50 MCG/ACT SUSP 1 spray each nostril am and hs FLUTICASONE PROPIONATE 96342339909 No Longer Active Todd Callaway MD Active ANUSOL-HC 25 MG SUPPOSITORY 1 rectally twice a day as needed for hemorrhoids HYDROCORTISONE JAYDEN (RECTAL) 14812185160 No Longer Active Yolande Lindsay MD PhD Active ANUSOL-HC 25 MG SUPPOSITORY 1 suppository rectally each evening as needed for anal fissure HYDROCORTISONE JAYDEN (RECTAL) 96737826744 No Longer Active LONNIE Iglesias Active VALIUM 5 MG TAB 1 po 30 minutes prior to your MRI DIAZEPAM 21744465479 No Longer Active LONNIE Iglesias Active METHOCARBAMOL 750 MG TABS 1 PO QID PRN METHOCARBAMOL 70664820665 No Longer Active Daphne Wetzel [employer]ISING [employer] ONLINE Active NITROSTAT 0.4 MG SUBL as directed NITROGLYCERIN 97067055364 No Longer Active Rodrigo Sarah APRN Active ROBAXIN-750 750 MG TABS 2 four times a day for 3 days as needed for muscle spasm, then 1 four times a day as needed METHOCARBAMOL 37182899144 No Longer Active Rodrigo Sarah APRN Active HYDROCODONE-ACETAMINOPHEN 5-325 MG TABS 1 q 4-6 hrs prn HYDROCODONE-ACETAMINOPHEN 42328305167 No Longer Active Rodrigo Sarah APRN Active VERAPAMIL HCL CR 180 MG CR-TABS TAKE 1 TAB DAILY VERAPAMIL HCL 51777419003 No Longer Active Yolande Lindsay MD PhD Active BACTRIM DS 800-160 MG TAB 1 tab by mouth twice daily TRIMETHOPRIM-SULFAMETHOXAZOLE 05427414185 No Longer Active Yolande Lindsay MD PhD Active NEXIUM 40 MG PACK 1 by mouth daily ESOMEPRAZOLE MAGNESIUM 96430128032 No Longer Active Des Hines MD Active EPIPEN 2-CHARLETTE 0.3 MG/0.3ML OMARI as need for allergic reaction EPINEPHRINE 69814260096 Active Yolande Lindsay MD PhD Active NEXIUM 40 MG CPDR 1 PO Q D DAY ESOMEPRAZOLE MAGNESIUM 84276926428 No Longer Active Sadia Perry RN Active NEXIUM 40 MG PACK 1 by mouth daily NEXIUM 40 MG PACK ESOMEPRAZOLE MAGNESIUM Inactive VERAPAMIL HCL CR 180 MG CR-TABS TAKE 1 TAB DAILY VERAPAMIL HCL CR 180 MG CR-TABS VERAPAMIL HCL Inactive HYDROCODONE-ACETAMINOPHEN 5-325 MG TABS 1 q 4-6 hrs prn HYDROCODONE-ACETAMINOPHEN 5-325 MG TABS 726601 HYDROCODONE-ACETAMINOPHEN Inactive ROBAXIN-750 750 MG TABS 2 four times a day for 3 days as needed for muscle spasm, then 1 four times a day as needed ROBAXIN-750 750 MG TABS 321303 METHOCARBAMOL Inactive NITROSTAT 0.4 MG SUBL as directed NITROSTAT 0.4 MG SUBL NITROGLYCERIN Inactive METHOCARBAMOL 750 MG TABS 1 PO QID PRN METHOCARBAMOL 750 MG TABS 552596 METHOCARBAMOL Inactive VALIUM 5 MG TAB 1 po 30 minutes prior to your MRI VALIUM 5 MG TAB 953222 DIAZEPAM Inactive ANUSOL-HC 25 MG SUPPOSITORY 1 suppository rectally each evening as needed for anal fissure ANUSOL-HC 25 MG SUPPOSITORY 8330024 HYDROCORTISONE JAYDEN (RECTAL) Inactive ANUSOL-HC 25 MG SUPPOSITORY 1 rectally twice a day as needed for hemorrhoids ANUSOL-HC 25 MG SUPPOSITORY 6854338 HYDROCORTISONE JAYDEN (RECTAL) Inactive FLONASE 50 MCG/ACT SUSP 1 spray each nostril am and hs FLONASE 50 MCG/ACT SUSP FLUTICASONE PROPIONATE Inactive DICLOFENAC SODIUM 75 MG TBEC 1 tablet by q 12 hours PRN headaches DICLOFENAC SODIUM 75 MG TBEC 510111 DICLOFENAC SODIUM Inactive PA VITAMIN D-3 2000 UNIT CAPS 1 CAP PO DAILY PA VITAMIN D-3 2000 UNIT CAPS CHOLECALCIFEROL Inactive PREVACID 30 MG CPDR Take 1 tablet by mouth daily-PRN PREVACID 30 MG CPDR 670647 LANSOPRAZOLE Inactive DOXYCYCLINE HYCLATE 100 MG TAB 1 tab twice a day for 14 days 2013 DOXYCYCLINE HYCLATE 100 MG TAB 6042995 DOXYCYCLINE HYCLATE Inactive XOPENEX 1.25 MG/3ML NEBU 1 neb every 4 hours if needed for cough/congestion XOPENEX 1.25 MG/3ML NEBU 520382 LEVALBUTEROL HCL Inactive CYCLOBENZAPRINE HCL 10 MG TABS 1/2 - 1 tab by mouth three times daily if needed for spasms/pain CYCLOBENZAPRINE HCL 10 MG TABS 811339 CYCLOBENZAPRINE HCL Inactive ALBUTEROL SULFATE 0.083 % NEBU SOLN one vial per nebulizer every 4-6 hours as needed ALBUTEROL SULFATE 0.083 % NEBU SOLN 873758 ALBUTEROL SULFATE Inactive CEFTIN 500 MG TAB 1 twice a day CEFTIN 500 MG TAB 736217 CEFUROXIME AXETIL Inactive ZOFRAN ODT 4 MG TBDP 1 pill dissolved by mouth every 4 hours if needed for nausea ZOFRAN ODT 4 MG TBDP 554265 ONDANSETRON Inactive ADULT ASPIRIN EC LOW STRENGTH 81 MG TBEC Take 1 tablet by mouth daily 2014 ADULT ASPIRIN EC LOW STRENGTH 81 MG TBEC 988203 ASPIRIN Inactive CALCIUM 600+D PLUS MINERALS 600-400 [...] or an apple NIACIN 500 MG TABS 980423 NIACIN Inactive NIASPAN 500 MG ORAL CR-TABS 1 pill nightly x 1 week, then 2 pills nightly x 1 week, then 3 pills nightly x 1 week, then 4 pills nightly NIASPAN 500 MG ORAL CR-TABS NIACIN (ANTIHYPERLIPIDEMIC) Inactive OXYCODONE HCL 5 MG ORAL CAPS 1 TAB PO Q HS OXYCODONE HCL 5 MG ORAL CAPS 0118484 OXYCODONE HCL Inactive FLUTICASONE PROPIONATE 50 MCG/ACT SUSP 1 to 2 sprays each nostril daily 04/21 FLUTICASONE PROPIONATE 50 MCG/ACT SUSP 938587 FLUTICASONE PROPIONATE Inactive POLYTRIM 12885-9.1 UNIT/ML-% SOLN 1 gtt to affected eye q3h x 7 days POLYTRIM 26480-4.1 UNIT/ML-% SOLN 880127 POLYMYXIN B- TRIMETHOPRIM Inactive CHERATUSSIN AC 100-10 MG/5ML SYRP 1 tsp by mouth every 4 hours as needed for cough CHERATUSSIN AC 100-10 MG/5ML SYRP 233455 GUAIFENESIN-CODEINE Inactive LEVOTHYROXINE SODIUM 75 MCG TABS Take 1 tab daily LEVOTHYROXINE SODIUM 75 MCG TABS 653337 LEVOTHYROXINE SODIUM Inactive BACTRIM DS 800-160 MG TAB 1 tab by mouth twice daily BACTRIM DS 800-160 MG TAB 489219 TRIMETHOPRIM-SULFAMETHOXAZOLE Inactive AZITHROMYCIN 250 MG TABS 2 po qd x 1 day, then 1 po qd x 4 days AZITHROMYCIN 250 MG TABS 4060658 AZITHROMYCIN Inactive CEFDINIR 300 MG CAPS by mouth twice a day CEFDINIR 300 MG CAPS 855451 CEFDINIR Inactive AZITHROMYCIN 250 MG TABS 2 pills on day 1, then 1 pill daily x 4 days AZITHROMYCIN 250 MG TABS 6962000 AZITHROMYCIN Inactive DOXYCYCLINE HYCLATE 100 MG CAP 1 cap by mouth twice daily DOXYCYCLINE HYCLATE 100 MG CAP 7866091 DOXYCYCLINE HYCLATE Inactive FUROSEMIDE 20 MG TABS 1 pill by mouth daily, for edema FUROSEMIDE 20 MG TABS 121910 FUROSEMIDE Inactive AZITHROMYCIN 250 MG TABS 2 po qd x 1 day, then 1 po qd x 4 days AZITHROMYCIN 250 MG TABS 4730483 AZITHROMYCIN Inactive CEFTIN 500 MG TAB 1 twice a day CEFTIN 500 MG TAB 242797 CEFUROXIME AXETIL Inactive CEFDINIR 300 MG CAPS 1 po BID x 10 days CEFDINIR 300 MG CAPS 688173 CEFDINIR Inactive BACTRIM DS 800-160 MG TAB 1 tab by mouth twice daily BACTRIM DS 800-160 MG TAB 157261 TRIMETHOPRIM-SULFAMETHOXAZOLE Inactive Immunizations Vaccine Administration Date Value Standard Description Seasonal influenza vaccine, injectable, containing preservative, for > 3 years old (Afluria, FluLaval, Fluzone, Fluvirin, Fluarix, Agriflu(>=18 yo)) Fluzone (>3 yrs.) [QCQ343] Influenza, seasonal, injectable influenza immunization (Flu Vax) has been administered Influenza - Unspecified Formulation [CVX88] influenza virus vaccine, unspecified formulation Seasonal influenza vaccine, injectable, containing preservative, for > 3 years old (Afluria, FluLaval, Fluzone, Fluvirin, Fluarix, Agriflu(>=18 yo)) Fluzone (>3 yrs.) [YAW014] Influenza, seasonal, injectable pneumococcal immunization administered Pneumovax 23 [CVX33] pneumococcal polysaccharide vaccine, 23 valent dT (Diphtheria and Tetanus) booster given given Td(adult) unspecified formulation Boostrix (Tetanus toxoid, reduced diphtheria toxoid and acellular pertussis vaccine, adsorbed), booster Boostrix [XWI784] tetanus toxoid, reduced diphtheria toxoid, and acellular [...] Panel - Chemistry sodium, serum 142 mmol/L 161-464 9298/06/30 potassium, serum 4.4 mmol/L 3.5-5.2 chloride, serum 108 mmol/L 98-107 carbon dioxide, venous blood 25.1 mmol/L 21.0-32.0 blood glucose 82 mg/dL 65-110 calcium, serum 9.1 mg/dL 8.5-10.1 urea nitrogen, blood 18 mg/dL 7-18 creatinine, serum 1.31 mg/dL 0.55-1.30 Lab Report: [facility] Advanced Lipid and Inlammation Panel /92873 - Chemistry cholesterol, serum 148 mg/dL 412-717 2906/09/02 HDL cholesterol, serum 55 mg/dL > OR=46 [...] (L) - Chemistry sodium, serum 145 mmol/L 722-253 9345/09/02 potassium, serum 4.6 mmol/L 3.5-5.2 chloride, serum [...] Rate - Chemistry sodium, serum 139 mmol/L 739-241 3410/03/24 carbon dioxide, venous blood 22.4 mmol/L 21.0-32.0 [...] ... - Chemistry sodium, serum 143 mmol/L 456-413 3330/05/02 carbon dioxide, venous blood 25.6 mmol/L 21.0-32.0 [...] Negative mg/dL Negative sodium, serum 142 mmol/L 121-550 9372/07/18 carbon dioxide, venous blood 27.8 mmol/L 21.0-32.0 [...] mg/dL Encounters Code Encounter Date Provider Facility CPT-01625 Level 3 Est. Patient 10:29:41 CDT Rodrigo Sarah [facility] CPT-64703 Level 4 Est. Patient 17:51:05 CDT Gab Padron MD [facility] CPT-44248 Level 3 Est. Patient 14:18:08 CDT Gab Padron MD [facility] CPT-41510 Level 4 Est. Patient 10:18:54 CDT Gab Padron MD [facility] CPT-15091 Level 3 Est. Patient 11:30:07 CDT Rodrigo Sarah [facility] CPT-94219 Level 4 Est. Patient 21:02:30 [place] Gab Padron MD [facility] CPT-97256 Level 3 Est. Patient 11:02:19 [place] Gab Padron MD [facility] CPT-84803 Level 4 Est. Patient 22:24:31 [place] Gab Padron MD [facility] CPT-70947 Level 3 Est. Patient 18:33:46 [place] Gab Padron MD [facility] CPT-37639 Level 3 Est. Patient 16:19:11 CDT Yolande Lindsay MD PhD [facility] [place]-79843 Level 3 Est. Patient 18:59:14 CDT Yolande Lindsay MD [facility]-46368 Level 4 Est. Patient 21:29:26 CDT Yolande Lindsay MD [facility]-72205 Level 3 Est. Patient 07:37:45 CDT Yolande Lindsay MD [facility]-71842 Level 3 Est. Patient 17:03:46 CDT Yolande Lindsay MD [facility]-10238 Level 4 Est. Patient 20:02:13 [place] Yolande Lindsay MD [facility]-74376 Level 3 Est. Patient 16:02:07 [place] Alexis Ordaz MD [facility] [place]-77384 Level 3 Est. Patient 12:41:24 [place] Yolande Lindsay MD [facility]-60707 Level 3 Est. Patient 15:41:20 [place] Yolande Lindsay MD [facility]-01593 Level 3 Est. Patient 13:20:02 [place] Yolande Lindsay MD [facility]-60003 Level 3 Est. Patient 15:00:38 CDT Jared Og MD [facility]-03967 Level 3 Est. Patient 10:22:32 CDT Yolande Lindsay MD [facility]-27615 Level 3 Est. Patient 17:12:58 CDT Yolande Lindsay MD [facility]-64685 Level 4 Est. Patient 13:30:58 CDT Yolande Lindsay MD [facility]-71089 Level 4 New Patient 09:02:42 CDT Jared Og MD [facility]-31430 Level 3 Est. Patient 08:19:07 CDT Yolande Lindsay MD [facility]-11600 Level 3 Est. Patient 12:00:13 [place] Gab Padron MD [facility] [place]-23894 Level 3 Est. Patient 16:15:23 [place] Yolande Lindsay MD [facility]29816 Level 2 Est. Patient 19:47:15 CDT Yolande Lindsay MD [facility]16935 Level 3 Est. Patient 21:38:31 CDT Yolande Lindsay MD [facility]19569 Level 3 Est. Patient 10:25:12 CDT Adiel PERAZA [facility] [place]-73987 Level 4 Est. Patient 10:51:58 CDT Yolande Lindsay MD [facility]-49876 Level 3 Est. Patient 14:04:55 [place] Rodrigo Sarah [facility]-98290 Level 3 Est. Patient 10:46:35 [place] Rodrigo Sarah [facility]-30093 Level 3 Est. Patient 14:24:37 [place] Yolande Lindsay MD [facility]-20078 Level 3 Est. Patient 17:41:58 [place] Yolande Lindsay MD [facility]63570 Level 2 Est. Patient 22:01:41 [place] Rodrigo Sarah [facility]-44888 Level 2 Est. Patient 22:01:11 [place] Rodrigo Sarah [facility] [place]19641 Level 3 Est. Patient 10:12:29 [place] Rodrigo Sarah [facility]-23454 Level 3 Est. Patient 11:05:44 CDT Alexis Ordaz MD [facility] CPT-46301 Level 3 Est. Patient 14:57:20 CDT Yolande Lindsay MD [facility] CPT-66979 Level 3 Est. Patient 14:40:57 CDT Yolande Lindsay MD [facility] CPT-74106 Level 3 Est. Patient 20:55:40 CDT Yolande Lindsay MD [facility] CPT-82473 Level 3 Est. Patient 12:42:38 [place] Yolande Lindsay MD [facility] CPT-87811 Level 3 Est. Patient 11:54:49 [place] Des Hines MD [facility] CPT-78527 Level 3 Est. Patient 17:06:38 CDT Dewayne PERAZA [facility] Procedures Code Procedure Name Date Entry Date Standard Description CPT-01996 Chest 2V Frontal and Lat - XRAY USE ONLY 10:48:51 CDT CPT-31547 LS spine comp w obliq 13:28:00 [place] CPT-J1040 Depo Medrol 80 mg (Methyl Prednisolone Acetate) 10:51: 28 [place] CPT-J1100 Decadron 8mg (Dexamethasone) 10:51:28 [place] CPT-91383 Abx/Therapy Injection 10:51:28 [place] CPT-J1100 Decadron 8mg (Dexamethasone) 21:02:30 [place] CPT-J1040 Depo Medrol 80 mg (Methyl Prednisolone Acetate) 21:02: 30 [place] [id number] Event Monitor - MC Transmission 09:12:32 CDT 08/06 [id number] Event Monitor - MC review and interp 09:12:32 CDT [id number] Event Monitor - MC recording 09:12:32 CDT CPT-70133 EKG Trac and Interp 16:50:22 CDT CPT-J1030 Depo Medrol 40 mg (Methyl Prednisolone Acetate) 17:05: 54 CDT CPT-J1100 Decadron 4mg (Dexamethasone) 17:05:54 CDT CPT-12096 Abx/Therapy Injection 17:05:54 CDT CPT-J1100 Decadron 4mg (Dexamethasone) 16:55:28 CDT CPT-J1030 Depo Medrol 40 mg (Methyl Prednisolone Acetate) 16:55: 28 CDT CPT-95889 Ankle Complete - Min 3V 15:58:50 CDT CPT-43144 Knee 3V 15:58:50 CDT CPT-27877 Hip comp min 2V 15:58:50 CDT CPT-J2270 Morphine Sulfate 10 mg 14:25:44 [place] CPT-J2550 Phenergan 12.5 mg (Promethazine) 14:25:44 [place] CPT-59984 Abx/Therapy Injection 14:25:44 [place] CPT-J2550 Phenergan 12.5 mg (Promethazine) 14:08:03 [place] CPT-J2270 Morphine Sulfate 10 mg 14:08:03 [place] CPT-22828 Bladder Scan 15:00:38 CDT CPT-TCMM Transitional Care Mgmt-Moderate 09:52:22 CDT CPT-J1030 Depo Medrol 40 mg (Methyl Prednisolone Acetate) 10:55: 18 CDT CPT-J1100 Decadron 4mg (Dexamethasone) 10:55:18 CDT CPT-21740 Abx/Therapy Injection 10:55:18 CDT CPT-J1030 Depo Medrol 40 mg (Methyl Prednisolone Acetate) 10:22: 32 CDT CPT-J1100 Decadron 4mg (Dexamethasone) 10:22:32 CDT CPT-68233 Postop F/U Visit 14:37:13 CDT CPT-77705 Ankle Complete - Min 3V 17:11:58 CDT CPT-00500 Foot comp min 3V 17:11:58 CDT CPT-10366 Bladder Scan 09:56:58 CDT CPT-83706 Postop F/U Visit 09:56:58 CDT CPT-18302 Cystoscopy 09:02:42 CDT CPT-69765 Bladder Scan 09:02:42 CDT CPT-11047 Abd single AP View 16:00:35 CDT CPT-68939 Administration single or combination vaccine inc oral 10 :15:43 CDT CPT-64471 Influenza split virus > age 3 10:15:43 CDT CPT-64337 Nail Avulsion 09:24:57 CDT CPT-OV Office Visit 11:15:41 CDT CPT-84470 Abx/Therapy Injection 10:51:30 CDT CPT-J3301 Kenalog 40 mg (Triamcinolone Acetonide) 10:25:12 CDT CPT-J1100 Decadron 4mg (Dexamethasone) 10:25:12 CDT CPT-07560 Anoscopy diagnostic 10:36:12 CDT CPT-OV Office Visit 15:34:31 CDT CPT-01178 Abx/Therapy Injection 08:21:15 [place] CPT-J1885 Toradol 60 mg (Ketorolac) 10:46:35 [place] CPT-OV Office Visit 19:51:16 [place] CPT-72630 Spec Collection and Handling Fee 14:34:18 [place] CPT-PV Prev. Care Visit 14:19:18 [place] CPT-03009 Postop F/U Visit 14:47:51 [place] CPT-69866 Postop F/U Visit 15:15:14 [place] CPT-16963 Postop F/U Visit 14:41:43 CDT CPT-48826 Postop F/U Visit 15:47:46 CDT CPT-OV Office Visit 15:27:23 CDT CPT-OV Office Visit 17:20:34 CDT CPT-86521 Abx/Therapy Injection 15:05:57 CDT CPT-J1100 Decadron 8mg (Dexamethasone) 14:44:57 CDT CPT-J1040 Depo Medrol 80 mg (Methyl Prednisolone Acetate) 14:44: 57 CDT CPT-JTINJ Joint Injection 10:17:37 CDT CPT-40490 Administration 2+ single or combination vaccines inc oral 13:01:46 [place] CPT-32314 Administration single or combination vaccine inc oral 13 :01:46 [place] CPT-37879 Pneumovax 13:01:46 [place] CPT-08585 Influenza split virus > age 3 13:01:46 [place] CPT-02131 Administration single or combination vaccine inc oral 08 :56:49 CDT CPT-50472 Tdap 08:56:49 CDT
--- OUTSIDE RECORDS SUMMARY | 2017-03-22 00:54 | XMS REPORT | Clinical Summary ---
Author Author Admin, MARGRET Organization [facility] Address Unknown Phone Unavailable Allergies, Adverse Reactions, Alerts Allergy Name Reaction Description Start Date Severity Status Provider VALENTIN Critical Active Rodrigo Montemayorl STUDENT OUTREACH COORDINATOR CHLORHEXIDINE GLUCONATE tongue and gums swollen Critical Active Hoa Kabaford RMA NORFLEX Rash Critical Active Rowenaina Farshadzell STUDENT OUTREACH COORDINATOR TRAZODONE HCL sees things Critical Active Dewayne [...] infarction, hx of 412 Active Hoa Otto [facility] Old myocardial infarction Pelvic pain 789.09 Active Yolande Lindsay MD PhD Abdominal pain, other specified site; multiple sites Edema 782.3 Active Yolande Lindsay MD PhD Edema Rash 782.1 Active Yolande Lindsay MD PhD Rash and other nonspecific skin eruption Back pain, lumbar 724.2 Active Gab Padron MD Lumbago Cough 786.2 Active Jillina Tyrel STUDENT OUTREACH COORDINATOR Cough 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 Jillina Frazellilian ZAPATAN 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 Anemia 285.9 Active Gab Padron MD Anemia, unspecified Conjunctivitis 372.30 Active Jillnacho Sarah APRN Conjunctivitis, unspecified Sinusitis 473.9 Active Jillina Frazell STUDENT OUTREACH COORDINATOR Unspecified sinusitis (chronic) Nonspecific syndrome suggestive of viral illness 079.99 Active Jillina Siml STUDENT OUTREACH COORDINATOR Unspecified viral infection Laryngitis 464.00 Active Jillina Farshadzell STUDENT OUTREACH COORDINATOR Acute laryngitis without mention of obstruction Abdominal [...] Abdominal pain, generalized 789.07 Active Silvestrellina Siml STUDENT OUTREACH COORDINATOR Abdominal pain, generalized Back pain, thoracic region, left 724.1 Active Jillina Farshadzell STUDENT OUTREACH COORDINATOR Pain in thoracic spine Abdominal pain, left [...] Yolande Lindsay MD PhD Hematuria ICD-599.70 Inactive Yolnade Lindsay MD PhD Ankle pain, right ICD-719.47 [...] 1/2 tab daily for 2 days PREDNISONE 29946735353 No Longer Active Gab Padron MD Active ZOFRAN ODT 4 MG TBDP 1 po q6hr PRN Nausea ONDANSETRON 72641457816 Active Jillina Frazell STUDENT OUTREACH COORDINATOR Active IBUPROFEN 600 MG TAB 1 tablet by mouth every 6 hours for 7 days, then 1 tablet every 6 hours as needed. Take with food IBUPROFEN 30750548854 Active Jillina Frazell STUDENT OUTREACH COORDINATOR Active BACTRIM DS 800-160 MG TAB 1 tab by mouth twice daily TRIMETHOPRIM-SULFAMETHOXAZOLE 49442521425 No Longer Active Gab Padron MD Active ADVAIR DISKUS 250-50 MCG/DOSE AEPB 1 puff BID FLUTICASONE- SALMETEROL 86976166000 Active Rodrigo Sarah APRN Active LEVOTHYROXINE SODIUM 75 MCG TABS Take 1 tab daily LEVOTHYROXINE SODIUM 11690255122 No Longer Active Mariana FLEMING Active SYNTHROID 88 MCG ORAL TABS Take one by mouth daily LEVOTHYROXINE SODIUM 40399163024 Active Mariana FLEMING Active CHERATUSSIN AC 100-10 MG/5ML SYRP 1 tsp by mouth every 4 hours as needed for cough GUAIFENESIN-CODEINE 87638864193 No Longer Active Gab Padron MD Active POLYTRIM 31430-2.1 UNIT/ML-% SOLN 1 gtt to affected eye q3h x 7 days POLYMYXIN B-TRIMETHOPRIM 52121928461 No Longer Active Gab Padron MD Active FLUTICASONE PROPIONATE 50 MCG/ACT SUSP 1 to 2 sprays each nostril daily 04/21 FLUTICASONE PROPIONATE 35734339209 No Longer Active Gab Padron MD Active TRILEPTAL 600 MG TABS Take one 1 tablet in Am and 1 tablet at night OXCARBAZEPINE 73632813675 Active Gab Padron MD Active CEFDINIR 300 MG CAPS 1 po BID x 10 days CEFDINIR 71033947476 No Longer Active Rodrigo Sarah APRN Active CEFTIN 500 MG TAB 1 twice a day CEFUROXIME AXETIL 73541592678 No Longer Active Gab Padron MD Active AZITHROMYCIN 250 MG TABS 2 po qd x 1 day, then 1 po qd x 4 days AZITHROMYCIN 01287595387 No Longer Active Rodrigo Sarah APRN Active CLARITIN 10 MG TAB 1 tablet by mouth daily as needed for allergies LORATADINE 34154807766 Active Rodrigo Sarah APRN Active OXYCODONE HCL 5 MG ORAL CAPS 1 TAB PO Q HS OXYCODONE HCL 39941769994 No Longer Active Rodrigo Sarah APRN Active NIASPAN 500 MG ORAL CR-TABS 1 pill nightly x 1 week, then 2 pills nightly x 1 week, then 3 pills nightly x 1 week, then 4 pills nightly NIACIN (ANTIHYPERLIPIDEMIC) 84983023395 No Longer Active Rodrigo Sarah APRN Active NIACIN 500 MG TABS 1 pill by mouth nightly x 1 week, then 2 pills x 1 week, then 3 pills x 1 week, then 4 pills nightly - take after evening meal, with applesauce or an apple NIACIN 74115663971 No Longer Active Yolande Lindsay MD PhD Active FISH OIL 1000 MG CAPS 3 pills daily OMEGA-3 FATTY ACIDS 87231418126 Active Yolande Lindsay MD PhD Active TRIAMCINOLONE ACETONIDE 0.1 % CREA apply bid sparingly to rash TRIAMCINOLONE ACETONIDE 83987974920 Active Yolande Lindsay MD PhD Active FUROSEMIDE 20 MG TAB 1 tablet by mouth daily FUROSEMIDE 44425400061 Active Tisha Lambert APRN Active LISINOPRIL 20 MG ORAL TABS 1 tab by mouth daily LISINOPRIL 34511758554 Active Gab Padron MD Active FUROSEMIDE 20 MG TABS 1 pill by mouth daily, for edema FUROSEMIDE 87067478491 No Longer Active Yolande Lindsay MD PhD Active ATORVASTATIN CALCIUM 10 MG TABS 1 pill by mouth daily, for cholesterol 09/06 ATORVASTATIN CALCIUM 52710734033 Active Gab Padron MD Active CALCIUM 600+D PLUS MINERALS 600-400 MG-UNIT ORAL CHEW 1 tab by mouth daily CALCIUM CARBONATE-VIT D-MIN 83310109358 No Longer Active Yolande Lindsay MD PhD Active CYCLOBENZAPRINE HCL 10 MG TABS 1 tablet by mouth three times daily as needed for muscle spasm/pain CYCLOBENZAPRINE HCL 49637621964 Active Yolande Lindsay MD PhD Active ONDANSETRON 4 MG TBDP 1 q4h PRN nausea ONDANSETRON 83077101360 Active Yolande Lindsay MD PhD Active ADULT ASPIRIN EC LOW STRENGTH 81 MG TBEC Take 1 tablet by mouth daily 2014 ASPIRIN 78189261907 No Longer Active Yolande Lindsay MD PhD Active ZOFRAN ODT 4 MG TBDP 1 pill dissolved by mouth every 4 hours if needed for nausea ONDANSETRON 17667401491 No Longer Active Yolande Lindsay MD PhD Active CEFTIN 500 MG TAB 1 twice a day CEFUROXIME AXETIL 36365536132 No Longer Active Yolande Lindsay MD PhD Active ALBUTEROL SULFATE 0.083 % NEBU SOLN one vial per nebulizer every 4-6 hours as needed ALBUTEROL SULFATE 17123752385 No Longer Active Alexis Ordaz MD Active DOXYCYCLINE HYCLATE 100 MG CAP 1 cap by mouth twice daily DOXYCYCLINE HYCLATE 09403369180 No Longer Active Yolande Lindsay MD PhD Active CYCLOBENZAPRINE HCL 10 MG TABS 1/2 - 1 tab by mouth three times daily if needed for spasms/pain CYCLOBENZAPRINE HCL 72916838606 No Longer Active Yolande Lindsay MD PhD Active AZITHROMYCIN 250 MG TABS 2 pills on day 1, then 1 pill daily x 4 days AZITHROMYCIN 31320288956 No Longer Active Yolande Lindsay MD PhD Active XOPENEX 1.25 MG/3ML NEBU 1 neb every 4 hours if needed for cough/congestion LEVALBUTEROL HCL 64712414507 No Longer Active Yolande Lindsay MD PhD Active DOXYCYCLINE HYCLATE 100 MG TAB 1 tab twice a day for 14 days 2013 DOXYCYCLINE HYCLATE 61314895952 No Longer Active Yolande Lindsay MD PhD Active PREVACID 30 MG CPDR Take 1 tablet by mouth daily-PRN LANSOPRAZOLE 04752294065 No Longer Active Yolande Lindsay MD PhD Active PA VITAMIN D-3 2000 UNIT CAPS 1 CAP PO DAILY CHOLECALCIFEROL 92245145615 No Longer Active Yolande Lindsay MD PhD Active CEFDINIR 300 MG CAPS by mouth twice a day CEFDINIR 87905565364 No Longer Active Gab Padron MD Active TOPAMAX 50 MG TABS 1 PO twice daily TOPIRAMATE 89990685944 Active Yolande Lindsay MD PhD Active AZITHROMYCIN 250 MG TABS 2 po qd x 1 day, then 1 po qd x 4 days AZITHROMYCIN 67038995912 No Longer Active Yolande Lindsay MD PhD Active DICLOFENAC SODIUM 75 MG TBEC 1 tablet by q 12 hours PRN headaches DICLOFENAC SODIUM 25406261411 No Longer Active Yolande Lindsay MD PhD Active FLONASE 50 MCG/ACT SUSP 1 spray each nostril am and hs FLUTICASONE PROPIONATE 47464553647 No Longer Active Todd Callaway MD Active ANUSOL-HC 25 MG SUPPOSITORY 1 rectally twice a day as needed for hemorrhoids HYDROCORTISONE JAYDEN (RECTAL) 31290771575 No Longer Active Yolande Lindsay MD PhD Active ANUSOL-HC 25 MG SUPPOSITORY 1 suppository rectally each evening as needed for anal fissure HYDROCORTISONE JAYDEN (RECTAL) 35489602636 No Longer Active LONNIE Iglesias Active VALIUM 5 MG TAB 1 po 30 minutes prior to your MRI DIAZEPAM 90062528713 No Longer Active LONNIE Iglesias Active METHOCARBAMOL 750 MG TABS 1 PO QID PRN METHOCARBAMOL 16131319514 No Longer Active Daphne Wetzel STUDENT OUTREACH COORDINATOR Active NITROSTAT 0.4 MG SUBL as directed NITROGLYCERIN 40885832405 No Longer Active Rodrigo Montemayorl STUDENT OUTREACH COORDINATOR Active ROBAXIN-750 750 MG TABS 2 four times a day for 3 days as needed for muscle spasm, then 1 four times a day as needed METHOCARBAMOL 58039481886 No Longer Active Silvestrellnacho Sarah APRN Active HYDROCODONE-ACETAMINOPHEN 5-325 MG TABS 1 q 4-6 hrs prn HYDROCODONE-ACETAMINOPHEN 99803302887 No Longer Active Silvestrellina Tyrel ZAPATAN Active VERAPAMIL HCL CR 180 MG CR-TABS TAKE 1 TAB DAILY VERAPAMIL HCL 37781388350 No Longer Active Yolande Lindsay MD PhD Active BACTRIM DS 800-160 MG TAB 1 tab by mouth twice daily TRIMETHOPRIM-SULFAMETHOXAZOLE 93022829047 No Longer Active Yolande Lindsay MD PhD Active NEXIUM 40 MG PACK 1 by mouth daily ESOMEPRAZOLE MAGNESIUM 20454767532 No Longer Active Des Hines MD Active EPIPEN 2-CHARLETTE 0.3 MG/0.3ML OMARI as need for allergic reaction EPINEPHRINE 10328015926 Active Yolande Lindsay MD PhD Active NEXIUM 40 MG CPDR 1 PO Q D DAY ESOMEPRAZOLE MAGNESIUM 42295448400 No Longer Active Sadia Perry RN Active NEXIUM 40 MG PACK 1 by mouth daily NEXIUM 40 MG PACK ESOMEPRAZOLE MAGNESIUM Inactive VERAPAMIL HCL CR 180 MG CR-TABS TAKE 1 TAB DAILY VERAPAMIL HCL CR 180 MG CR-TABS VERAPAMIL HCL Inactive HYDROCODONE-ACETAMINOPHEN 5-325 MG TABS 1 q 4-6 hrs prn HYDROCODONE-ACETAMINOPHEN 5-325 MG TABS 536926 HYDROCODONE-ACETAMINOPHEN Inactive ROBAXIN-750 750 MG TABS 2 four times a day for 3 days as needed for muscle spasm, then 1 four times a day as needed ROBAXIN-750 750 MG TABS 329431 METHOCARBAMOL Inactive NITROSTAT 0.4 MG SUBL as directed NITROSTAT 0.4 MG SUBL 099772 NITROGLYCERIN Inactive METHOCARBAMOL 750 MG TABS 1 PO QID PRN METHOCARBAMOL 750 MG TABS 705158 METHOCARBAMOL Inactive VALIUM 5 MG TAB 1 po 30 minutes prior to your MRI VALIUM 5 MG TAB 854522 DIAZEPAM Inactive ANUSOL-HC 25 MG SUPPOSITORY 1 suppository rectally each evening as needed for anal fissure ANUSOL-HC 25 MG SUPPOSITORY 2548632 HYDROCORTISONE JAYDEN (RECTAL) Inactive ANUSOL-HC 25 MG SUPPOSITORY 1 rectally twice a day as needed for hemorrhoids ANUSOL-HC 25 MG SUPPOSITORY 0045836 HYDROCORTISONE JAYDEN (RECTAL) Inactive FLONASE 50 MCG/ACT SUSP 1 spray each nostril am and hs FLONASE 50 MCG/ACT SUSP FLUTICASONE PROPIONATE Inactive DICLOFENAC SODIUM 75 MG TBEC 1 tablet by q 12 hours PRN headaches DICLOFENAC SODIUM 75 MG TBEC 199413 DICLOFENAC SODIUM Inactive PA VITAMIN D-3 2000 UNIT CAPS 1 CAP PO DAILY PA VITAMIN D-3 2000 UNIT CAPS CHOLECALCIFEROL Inactive PREVACID 30 MG CPDR Take 1 tablet by mouth daily-PRN PREVACID 30 MG CPDR 898653 LANSOPRAZOLE Inactive DOXYCYCLINE HYCLATE 100 MG TAB 1 tab twice a day for 14 days 2013 DOXYCYCLINE HYCLATE 100 MG TAB 6563316 DOXYCYCLINE HYCLATE Inactive XOPENEX 1.25 MG/3ML NEBU 1 neb every 4 hours if needed for cough/congestion XOPENEX 1.25 MG/3ML NEBU 184994 LEVALBUTEROL HCL Inactive CYCLOBENZAPRINE HCL 10 MG TABS 1/2 - 1 tab by mouth three times daily if needed for spasms/pain CYCLOBENZAPRINE HCL 10 MG TABS 684203 CYCLOBENZAPRINE HCL Inactive ALBUTEROL SULFATE 0.083 % NEBU SOLN one vial per nebulizer every 4-6 hours as needed ALBUTEROL SULFATE 0.083 % NEBU SOLN 448408 ALBUTEROL SULFATE Inactive CEFTIN 500 MG TAB 1 twice a day CEFTIN 500 MG TAB 113625 CEFUROXIME AXETIL Inactive ZOFRAN ODT 4 MG TBDP 1 pill dissolved by mouth every 4 hours if needed for nausea ZOFRAN ODT 4 MG TBDP 905518 ONDANSETRON Inactive ADULT ASPIRIN EC LOW STRENGTH 81 MG TBEC Take 1 tablet by mouth daily 2014 ADULT ASPIRIN EC LOW STRENGTH 81 MG TBEC 868786 ASPIRIN Inactive CALCIUM 600+D PLUS MINERALS 600-400 [...] or an apple NIACIN 500 MG TABS 504568 NIACIN Inactive NIASPAN 500 MG ORAL CR-TABS 1 pill nightly x 1 week, then 2 pills nightly x 1 week, then 3 pills nightly x 1 week, then 4 pills nightly NIASPAN 500 MG ORAL CR-TABS NIACIN (ANTIHYPERLIPIDEMIC) Inactive OXYCODONE HCL 5 MG ORAL CAPS 1 TAB PO Q HS OXYCODONE HCL 5 MG ORAL CAPS 3379710 OXYCODONE HCL Inactive FLUTICASONE PROPIONATE 50 MCG/ACT SUSP 1 to 2 sprays each nostril daily 04/21 FLUTICASONE PROPIONATE 50 MCG/ACT SUSP 9234369 FLUTICASONE PROPIONATE Inactive POLYTRIM 57199-5.1 UNIT/ML-% SOLN 1 gtt to affected eye q3h x 7 days POLYTRIM 34435-9.1 UNIT/ML-% SOLN 910490 POLYMYXIN B- TRIMETHOPRIM Inactive CHERATUSSIN AC 100-10 MG/5ML SYRP 1 tsp by mouth every 4 hours as needed for cough CHERATUSSIN AC 100-10 MG/5ML SYRP 808033 GUAIFENESIN-CODEINE Inactive LEVOTHYROXINE SODIUM 75 MCG TABS Take 1 tab daily LEVOTHYROXINE SODIUM 75 MCG TABS 275326 LEVOTHYROXINE SODIUM Inactive BACTRIM DS 800-160 MG TAB 1 tab by mouth twice daily BACTRIM DS 800-160 MG TAB 602921 TRIMETHOPRIM-SULFAMETHOXAZOLE Inactive AZITHROMYCIN 250 MG TABS 2 po qd x 1 day, then 1 po qd x 4 days AZITHROMYCIN 250 MG TABS 2261681 AZITHROMYCIN Inactive CEFDINIR 300 MG CAPS by mouth twice a day CEFDINIR 300 MG CAPS 882530 CEFDINIR Inactive AZITHROMYCIN 250 MG TABS 2 pills on day 1, then 1 pill daily x 4 days AZITHROMYCIN 250 MG TABS 5699852 AZITHROMYCIN Inactive DOXYCYCLINE HYCLATE 100 MG CAP 1 cap by mouth twice daily DOXYCYCLINE HYCLATE 100 MG CAP 3271412 DOXYCYCLINE HYCLATE Inactive FUROSEMIDE 20 MG TABS 1 pill by mouth daily, for edema FUROSEMIDE 20 MG TABS 431164 FUROSEMIDE Inactive AZITHROMYCIN 250 MG TABS 2 po qd x 1 day, then 1 po qd x 4 days AZITHROMYCIN 250 MG TABS 6540173 AZITHROMYCIN Inactive CEFTIN 500 MG TAB 1 twice a day CEFTIN 500 MG TAB 850515 CEFUROXIME AXETIL Inactive CEFDINIR 300 MG CAPS 1 po BID x 10 days CEFDINIR 300 MG CAPS 055849 CEFDINIR Inactive BACTRIM DS 800-160 MG TAB 1 tab by mouth twice daily BACTRIM DS 800-160 MG TAB 406132 TRIMETHOPRIM-SULFAMETHOXAZOLE Inactive PREDNISONE 20 MG TAB 2 tabs daily for 3 days, 1 tab daily for 3 days, 1/2 tab daily for 2 days PREDNISONE 20 MG TAB 308997 PREDNISONE Inactive Immunizations Vaccine Administration Date Value Standard Description Seasonal influenza vaccine, injectable, containing preservative, for > 3 years old (Afluria, FluLaval, Fluzone, Fluvirin, Fluarix, Agriflu(>=18 yo)) Fluzone (>3 yrs.) [MTB003] Influenza, seasonal, injectable influenza immunization (Flu Vax) has been administered Influenza - Unspecified Formulation [CVX88] influenza virus vaccine, unspecified formulation Seasonal influenza vaccine, injectable, containing preservative, for > 3 years old (Afluria, FluLaval, Fluzone, Fluvirin, Fluarix, Agriflu(>=18 yo)) Fluzone (>3 yrs.) [SHU551] Influenza, seasonal, injectable pneumococcal immunization administered Pneumovax 23 [CVX33] pneumococcal polysaccharide vaccine, 23 valent dT (Diphtheria and Tetanus) booster given given Td(adult) unspecified formulation Boostrix (Tetanus toxoid, reduced diphtheria toxoid and acellular pertussis vaccine, adsorbed), booster Boostrix [FXU514] tetanus toxoid, reduced diphtheria toxoid, and acellular [...] Panel - Chemistry sodium, serum 142 mmol/L 284-396 4146/06/30 potassium, serum 4.4 mmol/L 3.5-5.2 chloride, serum [...] Rate - Chemistry sodium, serum 139 mmol/L 327-835 0917/03/24 carbon dioxide, venous blood 22.4 mmol/L 21.0-32.0 [...] ... - Chemistry sodium, serum 143 mmol/L 955-262 4795/05/02 carbon dioxide, venous blood 25.6 mmol/L 21.0-32.0 [...] dipstick Negative Negative sodium, serum 142 mmol/L 527-059 3743/07/18 carbon dioxide, venous blood 27.8 mmol/L 21.0-32.0 [...] negative Encounters Code Encounter Date Provider Facility CPT-86249 Level 4 Est. Patient 16:31:27 CDT Gab Padron MD [facility] CPT-33863 Level 2 Est. Patient 12:23:38 CDT Jared Og MD [facility] CPT-21553 Level 3 Est. Patient 11:01:51 CDT Gab Padron MD [facility] CPT-43902 Level 3 Est. Patient 15:27:02 CDT Jared Og MD [facility] CPT-03712 Level 4 Est. Patient 09:25:27 CDT Gab Padron MD [facility] CPT-86907 Level 3 Est. Patient 10:29:41 CDT Silvestrenacho Sarah [facility] CPT-42219 Level 4 Est. Patient 17:51:05 CDT Gab Padron MD [facility] CPT-00020 Level 3 Est. Patient 14:18:08 CDT Gab Padron MD [facility] CPT-26798 Level 4 Est. Patient 10:18:54 CDT Gab Padron MD [facility] CPT-44605 Level 3 Est. Patient 11:30:07 CDT Rodrigo Sarah [facility] CPT-32165 Level 4 Est. Patient 21:02:30 SCALLOP BINDER Gab Padron MD [facility] CPT-51966 Level 3 Est. Patient 11:02:19 SCALLOP BINDER Gab Padron MD [facility] CPT-95099 Level 4 Est. Patient 22:24:31 SCALLOP BINDER Gab Padron MD [facility] CPT-37171 Level 3 Est. Patient 18:33:46 SCALLOP BINDER Gab Padron MD [facility] CPT-13749 Level 3 Est. Patient 16:19:11 CDT Yolande Lindsay MD [facility]-08730 Level 3 Est. Patient 18:59:14 CDT Yolande Lindsay MD [facility]-20948 Level 4 Est. Patient 21:29:26 CDT Yolande Lindsay MD [facility]-83679 Level 3 Est. Patient 07:37:45 CDT Yolande Lindsay MD [facility]-15267 Level 3 Est. Patient 17:03:46 CDT Yolande Lindsay MD [facility]-90987 Level 4 Est. Patient 20:02:13 SCALLOP BINDER Yolande Lindsay MD [facility]-99998 Level 3 Est. Patient 16:02:07 SCALLOP BINDER Alexis Ordaz MD [facility]-72606 Level 3 Est. Patient 12:41:24 SCALLOP BINDER Yolande Lindsay MD [facility]-42577 Level 3 Est. Patient 15:41:20 SCALLOP BINDER Yolande Lindsay MD [facility]-67981 Level 3 Est. Patient 13:20:02 SCALLOP BINDER Yolande Lindsay MD [facility]-73066 Level 3 Est. Patient 15:00:38 CDT Jared Og MD [facility]-35226 Level 3 Est. Patient 10:22:32 CDT Yolande Lindsay MD [facility]-04461 Level 3 Est. Patient 17:12:58 CDT Yolande Lindsay MD [facility]-46398 Level 4 Est. Patient 13:30:58 CDT Yolande Lindsay MD [facility]-64044 Level 4 New Patient 09:02:42 CDT Jared Og MD [facility]-08624 Level 3 Est. Patient 08:19:07 CDT Yolande Lindsay MD [facility]-11854 Level 3 Est. Patient 12:00:13 SCALLOP BINDER Gab Padron MD [facility]-67443 Level 3 Est. Patient 16:15:23 SCALLOP BINDER Yolande Lindsay MD [facility]15189 Level 2 Est. Patient 19:47:15 CDT Yolande Lindsay MD [facility]41911 Level 3 Est. Patient 21:38:31 CDT Yolande Lindsay MD [facility]40866 Level 3 Est. Patient 10:25:12 CDT Adiel PERAZA [facility]-78018 Level 4 Est. Patient 10:51:58 CDT Yolande Lindsay MD [facility]-14971 Level 3 Est. Patient 14:04:55 SCALLOP BINDER Rodrigo Sarah [facility]-44822 Level 3 Est. Patient 10:46:35 SCALLOP BINDER Rodrigo Sarah [facility]-22061 Level 3 Est. Patient 14:24:37 SCALLOP BINDER Yolande Lindsay MD [facility]-56054 Level 3 Est. Patient 17:41:58 SCALLOP BINDER Yolande Lindsay MD [facility]21440 Level 2 Est. Patient 22:01:41 SCALLOP BINDER Rodrigo Sarah [facility]-35844 Level 2 Est. Patient 22:01:11 SCALLOP BINDER Rodrigo Sarah [facility]-29382 Level 3 Est. Patient 10:12:29 SCALLOP BINDER Rodrigo Sarah [facility]-66604 Level 3 Est. Patient 11:05:44 CDT Alexis Ordaz MD [facility] CPT-09437 Level 3 Est. Patient 14:57:20 CDT Yolande Lindsay MD [facility] CPT-51605 Level 3 Est. Patient 14:40:57 CDT Yolande Lindsay MD [facility] CPT-13511 Level 3 Est. Patient 20:55:40 CDT Yolande Lindsay MD [facility] CPT-04863 Level 3 Est. Patient 12:42:38 SCALLOP BINDER Yolande Lindsay MD [facility] CPT-84348 Level 3 Est. Patient 11:54:49 SCALLOP BINDER Des Hines MD [facility] CPT-99793 Level 3 Est. Patient 17:06:38 CDT Dewayne PERAZA [facility] Procedures Code Procedure Name Date Entry Date Standard Description CPT-64149 First Vx - Ix admin via ID IM or jet injects without counseling by physician 11:52:31 CDT CPT-81406 Fluzone Preservative Free Intramuscular Suspension 11:52 :31 CDT CPT-31304 Foot, left, comp min 3V - XRAY USE ONLY 09:24:54 CDT CPT-39088 Abd single AP View - XRAY USE ONLY 11:16:17 CDT CPT-25829 T spine AP/ Lat - XRAY USE ONLY 09:34:21 CDT CPT-82945 Chest 2V Frontal and Lat - XRAY USE ONLY 10:48:51 CDT CPT-64208 LS spine comp w obliq 13:28:00 SCALLOP BINDER CPT-J1040 Depo Medrol 80 mg (Methyl Prednisolone Acetate) 10:51: 28 SCALLOP BINDER CPT-J1100 Decadron 8mg (Dexamethasone) 10:51:28 SCALLOP BINDER CPT-47406 Abx/Therapy Injection 10:51:28 SCALLOP BINDER CPT-J1100 Decadron 8mg (Dexamethasone) 21:02:30 SCALLOP BINDER CPT-J1040 Depo Medrol 80 mg (Methyl Prednisolone Acetate) 21:02: 30 SCALLOP BINDER [id number] Event Monitor - MC Transmission 09:12:32 CDT 08/06 [id number] Event Monitor - MC review and interp 09:12:32 CDT [id number] Event Monitor - MC recording 09:12:32 CDT CPT-44743 EKG Trac and Interp 16:50:22 CDT CPT-J1030 Depo Medrol 40 mg (Methyl Prednisolone Acetate) 17:05: 54 CDT CPT-J1100 Decadron 4mg (Dexamethasone) 17:05:54 CDT CPT-14382 Abx/Therapy Injection 17:05:54 CDT CPT-J1100 Decadron 4mg (Dexamethasone) 16:55:28 CDT CPT-J1030 Depo Medrol 40 mg (Methyl Prednisolone Acetate) 16:55: 28 CDT CPT-28339 Ankle Complete - Min 3V 15:58:50 CDT CPT-17053 Knee 3V 15:58:50 CDT CPT-52668 Hip comp min 2V 15:58:50 CDT CPT-J2270 Morphine Sulfate 10 mg 14:25:44 SCALLOP BINDER CPT-J2550 Phenergan 12.5 mg (Promethazine) 14:25:44 SCALLOP BINDER CPT-13811 Abx/Therapy Injection 14:25:44 SCALLOP BINDER CPT-J2550 Phenergan 12.5 mg (Promethazine) 14:08:03 SCALLOP BINDER CPT-J2270 Morphine Sulfate 10 mg 14:08:03 SCALLOP BINDER CPT-21281 Bladder Scan 15:00:38 CDT CPT-TCMM Transitional Care Mgmt-Moderate 09:52:22 CDT CPT-J1030 Depo Medrol 40 mg (Methyl Prednisolone Acetate) 10:55: 18 CDT CPT-J1100 Decadron 4mg (Dexamethasone) 10:55:18 CDT CPT-42241 Abx/Therapy Injection 10:55:18 CDT CPT-J1030 Depo Medrol 40 mg (Methyl Prednisolone Acetate) 10:22: 32 CDT CPT-J1100 Decadron 4mg (Dexamethasone) 10:22:32 CDT CPT-05492 Postop F/U Visit 14:37:13 CDT CPT-95748 Ankle Complete - Min 3V 17:11:58 CDT CPT-35675 Foot comp min 3V 17:11:58 CDT CPT-04135 Bladder Scan 09:56:58 CDT CPT-51474 Postop F/U Visit 09:56:58 CDT CPT-74163 Cystoscopy 09:02:42 CDT CPT-55290 Bladder Scan 09:02:42 CDT CPT-52329 Abd single AP View 16:00:35 CDT CPT-18685 Administration single or combination vaccine inc oral 10 :15:43 CDT CPT-37963 Influenza split virus > age 3 10:15:43 CDT CPT-76592 Nail Avulsion 09:24:57 CDT CPT-OV Office Visit 11:15:41 CDT CPT-84750 Abx/Therapy Injection 10:51:30 CDT CPT-J3301 Kenalog 40 mg (Triamcinolone Acetonide) 10:25:12 CDT CPT-J1100 Decadron 4mg (Dexamethasone) 10:25:12 CDT CPT-80849 Anoscopy diagnostic 10:36:12 CDT CPT-OV Office Visit 15:34:31 CDT CPT-77284 Abx/Therapy Injection 08:21:15 SCALLOP BINDER CPT-J1885 Toradol 60 mg (Ketorolac) 10:46:35 SCALLOP BINDER CPT-OV Office Visit 19:51:16 SCALLOP BINDER CPT-95782 Spec Collection and Handling Fee 14:34:18 SCALLOP BINDER CPT-PV Prev. Care Visit 14:19:18 SCALLOP BINDER CPT-34491 Postop F/U Visit 14:47:51 SCALLOP BINDER CPT-17373 Postop F/U Visit 15:15:14 SCALLOP BINDER CPT-98994 Postop F/U Visit 14:41:43 CDT CPT-97065 Postop F/U Visit 15:47:46 CDT CPT-OV Office Visit 15:27:23 CDT CPT-OV Office Visit 17:20:34 CDT CPT-73774 Abx/Therapy Injection 15:05:57 CDT CPT-J1100 Decadron 8mg (Dexamethasone) 14:44:57 CDT CPT-J1040 Depo Medrol 80 mg (Methyl Prednisolone Acetate) 14:44: 57 CDT CPT-JTINJ Joint Injection 10:17:37 CDT CPT-58980 Administration 2+ single or combination vaccines inc oral 13:01:46 SCALLOP BINDER CPT-10167 Administration single or combination vaccine inc oral 13 :01:46 SCALLOP BINDER CPT-39456 Pneumovax 13:01:46 SCALLOP BINDER CPT-53154 Influenza split virus > age 3 13:01:46 SCALLOP BINDER CPT-63808 Administration single or combination vaccine inc oral 08 :56:49 CDT CPT-51031 Tdap 08:56:49 CDT
--- OUTSIDE RECORDS SUMMARY | 2017-03-22 00:57 | XMS REPORT ---
Author Author [facility] Medical Staff Organization [facility] Address [address] [place] [id number] Phone [phone] Care Team Providers Care Flush Tester Name Role Phone EVELYN SPEARS MD PP [phone] Summary purpose TRANSITION OF CARE AUTO GENERATION [...] Code Type Description Date Performed Performing Physician J0696 CPT-4 CEFTRIAXONE SODIUM INJECTION 03-29-2015 CHRIS GUAMAN 26234 CPT-4 EMERGENCY DEPT VISIT 03-29-2015 CHRIS GUAMAN 48902 CPT-4 EMERGENCY DEPT VISIT 03-29-2015 CHRIS GUAMAN 55625 CPT-4 THER/PROPH/DIAG INJ SC/IM 03-29-2015 CHRIS GUAMAN Functional status Functional Status Finding Observation Time Abdomen Appearance obese [id number] Abdomen soft :15 Bajwa no :15 Urination normal :15 Quality sym/unlabored :15 Cough absent :15 Secretions no :15 Breath Sounds RUL clear :15 Breath Sounds RML clear :15 Breath Sounds RLL clear :15 Breath Sounds LESLIE clear :15 Breath Sounds LLL clear :15 Airway natural :15 Chest Tube no :15 Oxygen no :25 Temp >100.4 yes : Temp <96.8 no :25 Chills with rigors no :25 HR > 90bpm yes :25 Respirations > 20 no :25 Systolic <90 no :25 headache stiff neck no :25 Nursing Note No s/s of reaction noted. DC inst given to pt with Rx for Ceftin. Verb understanding of inst and pt amb off unit in stable condition. [id number]: 25 Vital signs Type Value Date Respiration Rate 18breaths per minute :25 Pulse 90beats per minute :25 Oxygen Saturation 98% 23-55-415753:25 BP Systolic 1120mmHg 67-00-496400:25 BP Diastolic 75mmHg 78-78-395709:25 Temperature 101.9F 08-53-797187:25 Social history Type Value Smoking Status FORMER SMOKER Treatment Plan No treatment plan text is available for this visit. Hospital discharge instructions Dismissal Condition fair Disposition on DC home DC Inst/Educ Give yes Med/Side Effects Rev yes PNE Vac Jan 13, 2015 Flu Vac Jan 13, 2015
--- OUTSIDE RECORDS SUMMARY | 2017-03-22 00:57 | XMS REPORT | Clinical Summary ---
Author Author Admin, MARGRET Rhoades [facility] Address Unknown Phone Unavailable Allergies, Adverse Reactions, Alerts Allergy Name Reaction Description Start Date Severity Status Provider CHLORHEXIDINE GLUCONATE tongue and gums swollen Critical Active Hoa Otto RMA NORFLEX Rash Critical Active Rodrigo Sarah MANAGER CIVIL TRAZODONE HCL sees things Critical Active Dewayne [...] and unspecified hyperlipidemia ABDOMINAL PAIN 789.00 Resolved Yloande Lindsay MD PhD Abdominal pain, unspecified site [...] Status Provider Patient Instruction FUROSEMIDE 20 MG TAB 1 tablet by mouth daily FUROSEMIDE 26430121713 Active Alexis Ordaz MD Active LISINOPRIL 20 MG ORAL TABS 1 tab by mouth daily LISINOPRIL 73940491546 Active Erum Elder Active FUROSEMIDE 20 MG TABS 1 pill by mouth daily, for edema FUROSEMIDE 53092647534 No Longer Active Yolande Lindsay MD PhD Active FISH OIL 1000 MG CAPS 1 pill daily x 1 week, then 2 pills daily x 1 week, then 3 pills daily x 1 week, then 4 pills daily OMEGA-3 FATTY ACIDS 04560310595 Active Yolande Lindsay MD PhD Active NIACIN 500 MG TABS 1 pill by mouth nightly x 1 week, then 2 pills x 1 week, then 3 pills x 1 week, then 4 pills nightly - take after evening meal, with applesauce or an apple NIACIN 52654759903 Active Yolande Lindsay MD PhD Active ATORVASTATIN CALCIUM 10 MG TABS 1 pill by mouth daily, for cholesterol 09/06 ATORVASTATIN CALCIUM 66141020646 Active Yolande Lindsay MD PhD Active CALCIUM 600+D PLUS MINERALS 600-400 MG-UNIT ORAL CHEW 1 tab by mouth daily CALCIUM CARBONATE-VIT D-MIN 72794952303 No Longer Active Yolande Lindsay MD PhD Active CYCLOBENZAPRINE HCL 10 MG TABS 1 tablet by mouth three times daily as needed for muscle spasm/pain CYCLOBENZAPRINE HCL 03078181444 Active Yolande Lindsay MD PhD Active ONDANSETRON 4 MG TBDP 1 q4h PRN nausea ONDANSETRON 09660201360 Active Yolande Lindsay MD PhD Active ADULT ASPIRIN EC LOW STRENGTH 81 MG TBEC Take 1 tablet by mouth daily 2014 ASPIRIN 97448350395 No Longer Active Yolande Lindsay MD PhD Active ZOFRAN ODT 4 MG TBDP 1 pill dissolved by mouth every 4 hours if needed for nausea ONDANSETRON 52410370303 No Longer Active Yolande Lindsay MD PhD Active CEFTIN 500 MG TAB 1 twice a day CEFUROXIME AXETIL 40965012200 No Longer Active Yolande Lindsay MD PhD Active ALBUTEROL SULFATE 0.083 % NEBU SOLN one vial per nebulizer every 4-6 hours as needed ALBUTEROL SULFATE 03365589372 No Longer Active Alexis Ordaz MD Active DOXYCYCLINE HYCLATE 100 MG CAP 1 cap by mouth twice daily DOXYCYCLINE HYCLATE 24311114446 No Longer Active Yolande Lindsay MD PhD Active CYCLOBENZAPRINE HCL 10 MG TABS 1/2 - 1 tab by mouth three times daily if needed for spasms/pain CYCLOBENZAPRINE HCL 69248284021 No Longer Active Yolande Lindsay MD PhD Active TRILEPTAL 600 MG TABS Take one 1/2 tablet in Am and 1 tablet at night OXCARBAZEPINE 98972134024 Active Yolande Lindsay MD PhD Active AZITHROMYCIN 250 MG TABS 2 pills on day 1, then 1 pill daily x 4 days AZITHROMYCIN 65245136265 No Longer Active Yolande Lindsay MD PhD Active XOPENEX 1.25 MG/3ML NEBU 1 neb every 4 hours if needed for cough/congestion LEVALBUTEROL HCL 64162747894 No Longer Active Yolande Lindsay MD PhD Active DOXYCYCLINE HYCLATE 100 MG TAB 1 tab twice a day for 14 days 2013 DOXYCYCLINE HYCLATE 64311860190 No Longer Active Yolande Lindsay MD PhD Active LEVOTHYROXINE SODIUM 75 MCG TABS Take 1 tab daily LEVOTHYROXINE SODIUM 54081175859 Active Yolande Lindsay MD PhD Active PREVACID 30 MG CPDR Take 1 tablet by mouth daily-PRN LANSOPRAZOLE 44619882319 No Longer Active Yolande Lindsay MD PhD Active PA VITAMIN D-3 2000 UNIT CAPS 1 CAP PO DAILY CHOLECALCIFEROL 64880452115 No Longer Active Yolande Lindsay MD PhD Active CEFDINIR 300 MG CAPS by mouth twice a day CEFDINIR 25084518120 No Longer Active Gab Padron MD Active TOPAMAX 50 MG TABS 1 PO twice daily TOPIRAMATE 69512399112 Active Yolande Lindsay MD PhD Active AZITHROMYCIN 250 MG TABS 2 po qd x 1 day, then 1 po qd x 4 days AZITHROMYCIN 41435846400 No Longer Active Yolande Lindsay MD PhD Active DICLOFENAC SODIUM 75 MG TBEC 1 tablet by q 12 hours PRN headaches DICLOFENAC SODIUM 22090952716 No Longer Active Yolande Lindsay MD PhD Active FLONASE 50 MCG/ACT SUSP 1 spray each nostril am and hs FLUTICASONE PROPIONATE 06401646792 No Longer Active Todd Callaway MD Active ANUSOL-HC 25 MG SUPPOSITORY 1 rectally twice a day as needed for hemorrhoids HYDROCORTISONE JAYDEN (RECTAL) 76316953352 No Longer Active Yolande Lindsay MD PhD Active ANUSOL-HC 25 MG SUPPOSITORY 1 suppository rectally each evening as needed for anal fissure HYDROCORTISONE JAYDEN (RECTAL) 96375155321 No Longer Active LONNIE Iglesias Active VALIUM 5 MG TAB 1 po 30 minutes prior to your MRI DIAZEPAM 82920043889 No Longer Active LONNIE Iglesias Active METHOCARBAMOL 750 MG TABS 1 PO QID PRN METHOCARBAMOL 22831199166 No Longer Active Daphne Wetzel APRN Active NITROSTAT 0.4 MG SUBL as directed NITROGLYCERIN 37136587233 No Longer Active Rodrigo Sarah APRN Active ROBAXIN-750 750 MG TABS 2 four times a day for 3 days as needed for muscle spasm, then 1 four times a day as needed METHOCARBAMOL 31012039697 No Longer Active Rodrigo Sarah APRN Active HYDROCODONE-ACETAMINOPHEN 5-325 MG TABS 1 q 4-6 hrs prn HYDROCODONE-ACETAMINOPHEN 36487431116 No Longer Active Rodrigo Sarah APRN Active VERAPAMIL HCL CR 180 MG CR-TABS TAKE 1 TAB DAILY VERAPAMIL HCL 92391301224 No Longer Active Yolande Lindsay MD PhD Active BACTRIM DS 800-160 MG TAB 1 tab by mouth twice daily TRIMETHOPRIM-SULFAMETHOXAZOLE 00051811824 No Longer Active Yolande Lindsay MD PhD Active NEXIUM 40 MG PACK 1 by mouth daily ESOMEPRAZOLE MAGNESIUM 27630794637 No Longer Active Des Hines MD Active EPIPEN 2-CHARLETTE 0.3 MG/0.3ML OMARI as need for allergic reaction EPINEPHRINE 62889156263 Active Yolande Lindsay MD PhD Active NEXIUM 40 MG CPDR 1 PO Q D DAY ESOMEPRAZOLE MAGNESIUM 43607999048 No Longer Active Sadia Perry RN Active NEXIUM 40 MG PACK 1 by mouth daily NEXIUM 40 MG PACK ESOMEPRAZOLE MAGNESIUM Inactive VERAPAMIL HCL CR 180 MG CR-TABS TAKE 1 TAB DAILY VERAPAMIL HCL CR 180 MG CR-TABS VERAPAMIL HCL Inactive HYDROCODONE-ACETAMINOPHEN 5-325 MG TABS 1 q 4-6 hrs prn HYDROCODONE-ACETAMINOPHEN 5-325 MG TABS 860043 HYDROCODONE-ACETAMINOPHEN Inactive ROBAXIN-750 750 MG TABS 2 four times a day for 3 days as needed for muscle spasm, then 1 four times a day as needed ROBAXIN-750 750 MG TABS 471172 METHOCARBAMOL Inactive NITROSTAT 0.4 MG SUBL as directed NITROSTAT 0.4 MG SUBL NITROGLYCERIN Inactive METHOCARBAMOL 750 MG TABS 1 PO QID PRN METHOCARBAMOL 750 MG TABS 626505 METHOCARBAMOL Inactive VALIUM 5 MG TAB 1 po 30 minutes prior to your MRI VALIUM 5 MG TAB 782788 DIAZEPAM Inactive ANUSOL-HC 25 MG SUPPOSITORY 1 suppository rectally each evening as needed for anal fissure ANUSOL-HC 25 MG SUPPOSITORY 0216007 HYDROCORTISONE JAYDEN (RECTAL) Inactive ANUSOL-HC 25 MG SUPPOSITORY 1 rectally twice a day as needed for hemorrhoids ANUSOL-HC 25 MG SUPPOSITORY 7697032 HYDROCORTISONE JAYDEN (RECTAL) Inactive FLONASE 50 MCG/ACT SUSP 1 spray each nostril am and hs FLONASE 50 MCG/ACT SUSP 279891 FLUTICASONE PROPIONATE Inactive DICLOFENAC SODIUM 75 MG TBEC 1 tablet by q 12 hours PRN headaches DICLOFENAC SODIUM 75 MG TBEC 901907 DICLOFENAC SODIUM Inactive PA VITAMIN D-3 2000 UNIT CAPS 1 CAP PO DAILY PA VITAMIN D-3 2000 UNIT CAPS CHOLECALCIFEROL Inactive PREVACID 30 MG CPDR Take 1 tablet by mouth daily-PRN PREVACID 30 MG CPDR 473413 LANSOPRAZOLE Inactive DOXYCYCLINE HYCLATE 100 MG TAB 1 tab twice a day for 14 days 2013 DOXYCYCLINE HYCLATE 100 MG TAB 5212970 DOXYCYCLINE HYCLATE Inactive XOPENEX 1.25 MG/3ML NEBU 1 neb every 4 hours if needed for cough/congestion XOPENEX 1.25 MG/3ML NEBU 115939 LEVALBUTEROL HCL Inactive CYCLOBENZAPRINE HCL 10 MG TABS 1/2 - 1 tab by mouth three times daily if needed for spasms/pain CYCLOBENZAPRINE HCL 10 MG TABS 713315 CYCLOBENZAPRINE HCL Inactive ALBUTEROL SULFATE 0.083 % NEBU SOLN one vial per nebulizer every 4-6 hours as needed ALBUTEROL SULFATE 0.083 % NEBU SOLN 718201 ALBUTEROL SULFATE Inactive CEFTIN 500 MG TAB 1 twice a day CEFTIN 500 MG TAB 686114 CEFUROXIME AXETIL Inactive ZOFRAN ODT 4 MG TBDP 1 pill dissolved by mouth every 4 hours if needed for nausea ZOFRAN ODT 4 MG TBDP 502088 ONDANSETRON Inactive ADULT ASPIRIN EC LOW STRENGTH 81 MG TBEC Take 1 tablet by mouth daily 2014 ADULT ASPIRIN EC LOW STRENGTH 81 MG TBEC 280306 ASPIRIN Inactive CALCIUM 600+D PLUS MINERALS 600-400 [...] x 4 days AZITHROMYCIN 250 MG TABS 0548988 AZITHROMYCIN Inactive CEFDINIR 300 MG CAPS by mouth twice a day CEFDINIR 300 MG CAPS 298631 CEFDINIR Inactive AZITHROMYCIN 250 MG TABS 2 pills on day 1, then 1 pill daily x 4 days AZITHROMYCIN 250 MG TABS 0764377 AZITHROMYCIN Inactive DOXYCYCLINE HYCLATE 100 MG CAP 1 cap by mouth twice daily DOXYCYCLINE HYCLATE 100 MG CAP 1021191 DOXYCYCLINE HYCLATE Inactive FUROSEMIDE 20 MG TABS 1 pill by mouth daily, for edema FUROSEMIDE 20 MG TABS 613142 FUROSEMIDE Inactive Immunizations Vaccine Administration Date Value Standard Description Seasonal influenza vaccine, injectable, containing preservative, for > 3 years old (Afluria, FluLaval, Fluzone, Fluvirin, Fluarix, Agriflu(>=18 yo)) Fluzone (>3 yrs.) [XWG525] Influenza, seasonal, injectable influenza immunization (Flu Vax) has been administered Influenza - Unspecified Formulation [CVX88] influenza virus vaccine, unspecified formulation Seasonal influenza vaccine, injectable, containing preservative, for > 3 years old (Afluria, FluLaval, Fluzone, Fluvirin, Fluarix, Agriflu(>=18 yo)) Fluzone (>3 yrs.) [TKM606] Influenza, seasonal, injectable pneumococcal immunization administered Pneumovax 23 [CVX33] pneumococcal polysaccharide vaccine, 23 valent dT (Diphtheria and Tetanus) booster given given Td(adult) unspecified formulation Boostrix (Tetanus toxoid, reduced diphtheria toxoid and acellular pertussis vaccine, adsorbed), booster Boostrix [FVR315] tetanus toxoid, reduced diphtheria toxoid, and acellular [...] pressure, diastolic - 8462-4 72 mm[Hg] BP welodn blood pressure, systolic - 8480-6 120 mm[Hg] [...] Panel - Chemistry sodium, serum 145 mmol/L 778-671 1159/06/22 potassium, serum 3.9 mmol/L 3.5-5.2 chloride, serum 109 mmol/L 98-107 carbon dioxide, venous blood 23.4 mmol/L 21.0-32.0 blood glucose 92 mg/dL 65-110 calcium, serum 8.2 mg/dL 8.5-10.1 urea nitrogen, blood 24 mg/dL 7-18 creatinine, serum 1.30 mg/dL 0.60-1.30 Lab Report: [facility] IQ Advanced Lipid and Inlammation Panel /46363 - Chemistry cholesterol, serum 198 mg/dL 841-432 0722/04/30 HDL cholesterol, serum 65 mg/dL > OR=46 triglyceride, serum, fasting 82 mg/dL LDL cholesterol, serum 117 mg/dL cholesterol/HDL ratio, serum 3.0 calc < OR=5.0 Lab Report: CBC W/DIFF, Basic Metabolic Panel - Chemistry sodium, serum 144 mmol/L 641-954 9455/01/21 potassium, serum 4.2 mmol/L 3.5-5.2 chloride, serum [...] Panel - Chemistry sodium, serum 144 mmol/L 461-724 0936/12/15 potassium, serum 5.4 mmol/L 3.5-5.2 chloride, serum [...] UA - Chemistry sodium, serum 143 mmol/L 186-792 3851/10/24 potassium, serum 3.9 mmol/L 3.5-5.2 chloride, serum [...] 51 mg/dL 30-200 cholesterol, serum 173 mg/dL 831-069 3681/04/28 HDL cholesterol, serum 63 mg/dL 32-96 LDL [...] 0-19 Encounters Code Encounter Date Provider Facility CPT-47650 Level 4 Est. Patient 21:29:26 CDT Yolande Lindsay MD [facility] CPT-42649 Level 3 Est. Patient 07:37:45 CDT Yolande Lindsay MD PhD [facility] CPT-73303 Level 3 Est. Patient 17:03:46 CDT Yolande Lindsay MD PhD [facility] CPT-44762 Level 4 Est. Patient 20:02:13 DOZER OPERATOR Yolande Lindsay MD PhD [facility] CPT-99520 Level 3 Est. Patient 16:02:07 DOZER OPERATOR Alexis Ordaz MD [facility] CPT-15738 Level 3 Est. Patient 12:41:24 DOZER OPERATOR Yolande Lindsay MD [facility] CPT-34435 Level 3 Est. Patient 15:41:20 DOZER OPERATOR Yolande Lindsay MD [facility]-69888 Level 3 Est. Patient 13:20:02 DOZER OPERATOR Yolande Lindsay MD [facility]-93405 Level 3 Est. Patient 15:00:38 CDT Jared Og MD [facility] CPT-86003 Level 3 Est. Patient 10:22:32 CDT Yolande Lindsay MD [facility]-67980 Level 3 Est. Patient 17:12:58 CDT Yolande Lindsay MD [facility]-98482 Level 4 Est. Patient 13:30:58 CDT Yolande Lindsay MD [facility] CPT-93970 Level 4 New Patient 09:02:42 CDT Jared Og MD [facility] CPT-49512 Level 3 Est. Patient 08:19:07 CDT Yolande Lindsay MD [facility] CPT-72932 Level 3 Est. Patient 12:00:13 DOZER OPERATOR Gab Padron MD [facility] CPT-35970 Level 3 Est. Patient 16:15:23 DOZER OPERATOR Yolande Lindsay MD [facility] CPT-25807 Level 2 Est. Patient 19:47:15 CDT Yolande Lindsay MD [facility] CPT-03889 Level 3 Est. Patient 21:38:31 CDT Yolande Lindsay MD [facility]-40369 Level 3 Est. Patient 10:25:12 CDT Adiel PERAZA [facility] CPT-35547 Level 4 Est. Patient 10:51:58 CDT Yolande Lindsay MD [facility] CPT-73528 Level 3 Est. Patient 14:04:55 DOZER OPERATOR Rodrigo Sarah [facility] CPT-25292 Level 3 Est. Patient 10:46:35 DOZER OPERATOR Rodrigo Sarah [facility] CPT-31036 Level 3 Est. Patient 14:24:37 DOZER OPERATOR Yolande Lindsay MD [facility] CPT-13364 Level 3 Est. Patient 17:41:58 DOZER OPERATOR Yolande Lindsay MD [facility] CPT-60134 Level 2 Est. Patient 22:01:41 DOZER OPERATOR Rodrigo Sarah [facility] CPT-07284 Level 2 Est. Patient 22:01:11 DOZER OPERATOR Rodrigo Sarah [facility] CPT-74714 Level 3 Est. Patient 10:12:29 DOZER OPERATOR Rodrigo Sarah [facility] CPT-80119 Level 3 Est. Patient 11:05:44 CDT Alexis Ordaz MD [facility] CPT-75762 Level 3 Est. Patient 14:57:20 CDT Yolande Lindsay MD [facility] CPT-22301 Level 3 Est. Patient 14:40:57 CDT Yolande Lindsay MD [facility] CPT-44994 Level 3 Est. Patient 20:55:40 CDT Yolande Lindsay MD [facility] CPT-92252 Level 3 Est. Patient 12:42:38 DOZER OPERATOR Yolande Lindsay MD [facility]-97026 Level 3 Est. Patient 11:54:49 DOZER OPERATOR Des Hines MD [facility] CPT-91927 Level 3 Est. Patient 17:06:38 CDT Dewayne PERAZA [facility] Procedures Code Procedure Name Date Entry Date Standard Description [id number] Event Monitor - MC Transmission 09:12:32 CDT 08/06 [id number] Event Monitor - MC review and interp 09:12:32 CDT [id number] Event Monitor - MC recording 09:12:32 CDT CPT-42239 EKG Trac and Interp 16:50:22 CDT CPT-J1030 Depo Medrol 40 mg (Methyl Prednisolone Acetate) 17:05: 54 CDT CPT-J1100 Decadron 4mg (Dexamethasone) 17:05:54 CDT CPT-69781 Abx/Therapy Injection 17:05:54 CDT CPT-J1100 Decadron 4mg (Dexamethasone) 16:55:28 CDT CPT-J1030 Depo Medrol 40 mg (Methyl Prednisolone Acetate) 16:55: 28 CDT CPT-69161 Ankle Complete - Min 3V 15:58:50 CDT CPT-41789 Knee 3V 15:58:50 CDT CPT-83165 Hip comp min 2V 15:58:50 CDT CPT-J2270 Morphine Sulfate 10 mg 14:25:44 DOZER OPERATOR CPT-J2550 Phenergan 12.5 mg (Promethazine) 14:25:44 DOZER OPERATOR CPT-44825 Abx/Therapy Injection 14:25:44 DOZER OPERATOR CPT-J2550 Phenergan 12.5 mg (Promethazine) 14:08:03 DOZER OPERATOR CPT-J2270 Morphine Sulfate 10 mg 14:08:03 DOZER OPERATOR CPT-05805 Bladder Scan 15:00:38 CDT CPT-TCMM Transitional Care Mgmt-Moderate 09:52:22 CDT CPT-J1030 Depo Medrol 40 mg (Methyl Prednisolone Acetate) 10:55: 18 CDT CPT-J1100 Decadron 4mg (Dexamethasone) 10:55:18 CDT CPT-92302 Abx/Therapy Injection 10:55:18 CDT CPT-J1030 Depo Medrol 40 mg (Methyl Prednisolone Acetate) 10:22: 32 CDT CPT-J1100 Decadron 4mg (Dexamethasone) 10:22:32 CDT CPT-05050 Postop F/U Visit 14:37:13 CDT CPT-54672 Ankle Complete - Min 3V 17:11:58 CDT CPT-54629 Foot comp min 3V 17:11:58 CDT CPT-08098 Bladder Scan 09:56:58 CDT CPT-72283 Postop F/U Visit 09:56:58 CDT CPT-04654 Cystoscopy 09:02:42 CDT CPT-65759 Bladder Scan 09:02:42 CDT CPT-50101 Abd single AP View 16:00:35 CDT CPT-97958 Administration single or combination vaccine inc oral 10 :15:43 CDT CPT-63043 Influenza split virus > age 3 10:15:43 CDT CPT-11974 Nail Avulsion 09:24:57 CDT CPT-OV Office Visit 11:15:41 CDT CPT-35683 Abx/Therapy Injection 10:51:30 CDT CPT-J3301 Kenalog 40 mg (Triamcinolone Acetonide) 10:25:12 CDT CPT-J1100 Decadron 4mg (Dexamethasone) 10:25:12 CDT CPT-16428 Anoscopy diagnostic 10:36:12 CDT CPT-OV Office Visit 15:34:31 CDT CPT-17956 Abx/Therapy Injection 08:21:15 DOZER OPERATOR CPT-J1885 Toradol 60 mg (Ketorolac) 10:46:35 DOZER OPERATOR CPT-OV Office Visit 19:51:16 DOZER OPERATOR CPT-69199 Spec Collection and Handling Fee 14:34:18 DOZER OPERATOR CPT-PV Prev. Care Visit 14:19:18 DOZER OPERATOR CPT-47043 Postop F/U Visit 14:47:51 DOZER OPERATOR CPT-35773 Postop F/U Visit 15:15:14 DOZER OPERATOR CPT-81302 Postop F/U Visit 14:41:43 CDT CPT-20604 Postop F/U Visit 15:47:46 CDT CPT-OV Office Visit 15:27:23 CDT CPT-OV Office Visit 17:20:34 CDT CPT-73546 Abx/Therapy Injection 15:05:57 CDT CPT-J1100 Decadron 8mg (Dexamethasone) 14:44:57 CDT CPT-J1040 Depo Medrol 80 mg (Methyl Prednisolone Acetate) 14:44: 57 CDT CPT-JTINJ Joint Injection 10:17:37 CDT CPT-91441 Administration 2+ single or combination vaccines inc oral 13:01:46 DOZER OPERATOR CPT-60180 Administration single or combination vaccine inc oral 13 :01:46 DOZER OPERATOR CPT-04213 Pneumovax 13:01:46 DOZER OPERATOR CPT-54876 Influenza split virus > age 3 13:01:46 DOZER OPERATOR CPT-05850 Administration single or combination vaccine inc oral 08 :56:49 CDT CPT-39989 Tdap 08:56:49 CDT
--- OUTSIDE RECORDS SUMMARY | 2017-03-22 00:59 | XMS REPORT | Clinical Summary ---
Author Author Admin, MARGRET Organization [employer] Address Unknown Phone Unavailable Allergies, Adverse Reactions, Alerts Allergy Name Reaction Description Start Date Severity Status Provider VALENTIN Critical Active Rodrigo Montemayorl CHERRY GROWER CHLORHEXIDINE GLUCONATE tongue and gums swollen Critical Active Hoa Kabaford RMA NORFLEX Rash Critical Active Rowenaina Farshadzell CHERRY GROWER TRAZODONE HCL sees things Critical Active Dewayne [...] unspecified site PLANTAR FASCIITIS 728.71 Resolved Yolande Lidnsay MD PhD Plantar fascial fibromatosis UTI 599.0 [...] and anus INGROWN TOENAIL 703.0 Resolved Yolande Lindasy MD PhD Ingrowing nail INGROWN TOENAIL 703.0 [...] MD Lumbago Cough 786.2 Active Jillina Tyrel CHERRY GROWER Cough 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 Jillina Frazellilian CHERRY GROWER 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 Anemia 285.9 Active Gab aPdron MD Anemia, unspecified Conjunctivitis 372.30 Active Jillina Tyrel CHERRY GROWER Conjunctivitis, unspecified Sinusitis 473.9 Active Jillina Frazell CHERRY GROWER Unspecified sinusitis (chronic) Nonspecific syndrome suggestive of viral illness 079.99 Active Rodrigo Sarah APRN Unspecified viral infection Laryngitis 464.00 Active Jillina Tyrel CHERRY GROWER Acute laryngitis without mention of obstruction Abdominal [...] 1/2 tab daily for 2 days PREDNISONE 93612507386 No Longer Active Gab Padron MD Active ZOFRAN ODT 4 MG TBDP 1 po q6hr PRN Nausea ONDANSETRON 47452772605 Active Jillina Frazell CHERRY GROWER Active IBUPROFEN 600 MG TAB 1 tablet by mouth every 6 hours for 7 days, then 1 tablet every 6 hours as needed. Take with food IBUPROFEN 89291374851 Active Jillina Frazell CHERRY GROWER Active BACTRIM DS 800-160 MG TAB 1 tab by mouth twice daily TRIMETHOPRIM-SULFAMETHOXAZOLE 31606588398 No Longer Active Gab Padron MD Active ADVAIR DISKUS 250-50 MCG/DOSE AEPB 1 puff BID FLUTICASONE- SALMETEROL 13142468929 Active Rodrigo Sarah APRN Active LEVOTHYROXINE SODIUM 75 MCG TABS Take 1 tab daily LEVOTHYROXINE SODIUM 31555625777 No Longer Active Mariana Lermagilma HICKEYA Active SYNTHROID 88 MCG ORAL TABS Take one by mouth daily LEVOTHYROXINE SODIUM 44052908071 Active Gab Padron MD Active CHERATUSSIN AC 100-10 MG/5ML SYRP 1 tsp by mouth every 4 hours as needed for cough GUAIFENESIN-CODEINE 43274394627 No Longer Active Gab Padron MD Active POLYTRIM 09799-1.1 UNIT/ML-% SOLN 1 gtt to affected eye q3h x 7 days POLYMYXIN B-TRIMETHOPRIM 29612517304 No Longer Active Gab Padron MD Active FLUTICASONE PROPIONATE 50 MCG/ACT SUSP 1 to 2 sprays each nostril daily 04/21 FLUTICASONE PROPIONATE 82419911436 No Longer Active Gab Padron MD Active TRILEPTAL 600 MG TABS Take one 1 tablet in Am and 1 tablet at night OXCARBAZEPINE 09819204278 Active Gab Padron MD Active CEFDINIR 300 MG CAPS 1 po BID x 10 days CEFDINIR 35046511081 No Longer Active Rodrigo Sarah APRN Active CEFTIN 500 MG TAB 1 twice a day CEFUROXIME AXETIL 78676140287 No Longer Active Gab Padron MD Active AZITHROMYCIN 250 MG TABS 2 po qd x 1 day, then 1 po qd x 4 days AZITHROMYCIN 87977340884 No Longer Active Rodrigo Sarah APRN Active CLARITIN 10 MG TAB 1 tablet by mouth daily as needed for allergies LORATADINE 10987527156 Active Rodrigo Sarah APRN Active OXYCODONE HCL 5 MG ORAL CAPS 1 TAB PO Q HS OXYCODONE HCL 63854654466 No Longer Active Rodrigo Sarah APRN Active NIASPAN 500 MG ORAL CR-TABS 1 pill nightly x 1 week, then 2 pills nightly x 1 week, then 3 pills nightly x 1 week, then 4 pills nightly NIACIN (ANTIHYPERLIPIDEMIC) 57520126009 No Longer Active Rodrigo Sarah APRN Active NIACIN 500 MG TABS 1 pill by mouth nightly x 1 week, then 2 pills x 1 week, then 3 pills x 1 week, then 4 pills nightly - take after evening meal, with applesauce or an apple NIACIN 06477767556 No Longer Active Yolande Lindsay MD PhD Active FISH OIL 1000 MG CAPS 3 pills daily OMEGA-3 FATTY ACIDS 29478549902 Active Yolande Lindsay MD PhD Active TRIAMCINOLONE ACETONIDE 0.1 % CREA apply bid sparingly to rash TRIAMCINOLONE ACETONIDE 59622205491 Active Yolande Lindsay MD PhD Active FUROSEMIDE 20 MG TAB 1 tablet by mouth daily FUROSEMIDE 35243839348 Active Gab Padron MD Active LISINOPRIL 20 MG ORAL TABS 1 tab by mouth daily LISINOPRIL 89336769839 Active Gab Padron MD Active FUROSEMIDE 20 MG TABS 1 pill by mouth daily, for edema FUROSEMIDE 09181830205 No Longer Active Yolande Lindsay MD PhD Active ATORVASTATIN CALCIUM 10 MG TABS 1 pill by mouth daily, for cholesterol 09/06 ATORVASTATIN CALCIUM 91923797022 Active Gab Padron MD Active CALCIUM 600+D PLUS MINERALS 600-400 MG-UNIT ORAL CHEW 1 tab by mouth daily CALCIUM CARBONATE-VIT D-MIN 38678274499 No Longer Active Yolande Lindsay MD PhD Active CYCLOBENZAPRINE HCL 10 MG TABS 1 tablet by mouth three times daily as needed for muscle spasm/pain CYCLOBENZAPRINE HCL 08081926103 Active Yolande Lindsay MD PhD Active ONDANSETRON 4 MG TBDP 1 q4h PRN nausea ONDANSETRON 63926736454 Active Yolande Lindsay MD PhD Active ADULT ASPIRIN EC LOW STRENGTH 81 MG TBEC Take 1 tablet by mouth daily 2014 ASPIRIN 59917319995 No Longer Active Yolande Lindsay MD PhD Active ZOFRAN ODT 4 MG TBDP 1 pill dissolved by mouth every 4 hours if needed for nausea ONDANSETRON 96093753433 No Longer Active Yolande Lindsay MD PhD Active CEFTIN 500 MG TAB 1 twice a day CEFUROXIME AXETIL 98161860301 No Longer Active Yolande Lindsay MD PhD Active ALBUTEROL SULFATE 0.083 % NEBU SOLN one vial per nebulizer every 4-6 hours as needed ALBUTEROL SULFATE 25608105391 No Longer Active Alexis Ordaz MD Active DOXYCYCLINE HYCLATE 100 MG CAP 1 cap by mouth twice daily DOXYCYCLINE HYCLATE 79007405022 No Longer Active Yolande Lindsay MD PhD Active CYCLOBENZAPRINE HCL 10 MG TABS 1/2 - 1 tab by mouth three times daily if needed for spasms/pain CYCLOBENZAPRINE HCL 17445520797 No Longer Active Yolande Lindsay MD PhD Active AZITHROMYCIN 250 MG TABS 2 pills on day 1, then 1 pill daily x 4 days AZITHROMYCIN 04970441133 No Longer Active Yolande Lindsay MD PhD Active XOPENEX 1.25 MG/3ML NEBU 1 neb every 4 hours if needed for cough/congestion LEVALBUTEROL HCL 17889572709 No Longer Active Yolande Lindsay MD PhD Active DOXYCYCLINE HYCLATE 100 MG TAB 1 tab twice a day for 14 days 2013 DOXYCYCLINE HYCLATE 08539142158 No Longer Active Yolande Lindsay MD PhD Active PREVACID 30 MG CPDR Take 1 tablet by mouth daily-PRN LANSOPRAZOLE 10591278377 No Longer Active Yolande Lindsay MD PhD Active PA VITAMIN D-3 2000 UNIT CAPS 1 CAP PO DAILY CHOLECALCIFEROL 83647588875 No Longer Active Yolande Lindsay MD PhD Active CEFDINIR 300 MG CAPS by mouth twice a day CEFDINIR 83216533633 No Longer Active Gab Padron MD Active TOPAMAX 50 MG TABS 1 PO twice daily TOPIRAMATE 41460664900 Active Yolande Lindsay MD PhD Active AZITHROMYCIN 250 MG TABS 2 po qd x 1 day, then 1 po qd x 4 days AZITHROMYCIN 23856844211 No Longer Active Yolande Lindsay MD PhD Active DICLOFENAC SODIUM 75 MG TBEC 1 tablet by q 12 hours PRN headaches DICLOFENAC SODIUM 17103584793 No Longer Active Yolande Lindsay MD PhD Active FLONASE 50 MCG/ACT SUSP 1 spray each nostril am and hs FLUTICASONE PROPIONATE 63274155259 No Longer Active Todd Callaway MD Active ANUSOL-HC 25 MG SUPPOSITORY 1 rectally twice a day as needed for hemorrhoids HYDROCORTISONE JAYDEN (RECTAL) 41435612082 No Longer Active Yolande Lindsay MD PhD Active ANUSOL-HC 25 MG SUPPOSITORY 1 suppository rectally each evening as needed for anal fissure HYDROCORTISONE JAYDEN (RECTAL) 52782647565 No Longer Active LONNIE Iglesias Active VALIUM 5 MG TAB 1 po 30 minutes prior to your MRI DIAZEPAM 56892681645 No Longer Active LONNIE Iglesias Active METHOCARBAMOL 750 MG TABS 1 PO QID PRN METHOCARBAMOL 60430824830 No Longer Active Daphne Wetzel APRN Active NITROSTAT 0.4 MG SUBL as directed NITROGLYCERIN 27552749395 No Longer Active Jillina Frahossein ZAPATAN Active ROBAXIN-750 750 MG TABS 2 four times a day for 3 days as needed for muscle spasm, then 1 four times a day as needed METHOCARBAMOL 49017345630 No Longer Active Silvestrellina Tyrel ZAPATAN Active HYDROCODONE-ACETAMINOPHEN 5-325 MG TABS 1 q 4-6 hrs prn HYDROCODONE-ACETAMINOPHEN 38839358160 No Longer Active Silvestrellnacho Sarah APRN Active VERAPAMIL HCL CR 180 MG CR-TABS TAKE 1 TAB DAILY VERAPAMIL HCL 83220682279 No Longer Active Yolande Lindsay MD PhD Active BACTRIM DS 800-160 MG TAB 1 tab by mouth twice daily TRIMETHOPRIM-SULFAMETHOXAZOLE 65982781418 No Longer Active Yolande Lindsay MD PhD Active NEXIUM 40 MG PACK 1 by mouth daily ESOMEPRAZOLE MAGNESIUM 44819007860 No Longer Active Des Hines MD Active EPIPEN 2-CHARLETTE 0.3 MG/0.3ML OMARI as need for allergic reaction EPINEPHRINE 33346018782 Active Yolande Lindsay MD PhD Active NEXIUM 40 MG CPDR 1 PO Q D DAY ESOMEPRAZOLE MAGNESIUM 52700993130 No Longer Active Sadia Perry RN Active NEXIUM 40 MG PACK 1 by mouth daily NEXIUM 40 MG PACK ESOMEPRAZOLE MAGNESIUM Inactive VERAPAMIL HCL CR 180 MG CR-TABS TAKE 1 TAB DAILY VERAPAMIL HCL CR 180 MG CR-TABS VERAPAMIL HCL Inactive HYDROCODONE-ACETAMINOPHEN 5-325 MG TABS 1 q 4-6 hrs prn HYDROCODONE-ACETAMINOPHEN 5-325 MG TABS 112215 HYDROCODONE-ACETAMINOPHEN Inactive ROBAXIN-750 750 MG TABS 2 four times a day for 3 days as needed for muscle spasm, then 1 four times a day as needed ROBAXIN-750 750 MG TABS 813146 METHOCARBAMOL Inactive NITROSTAT 0.4 MG SUBL as directed NITROSTAT 0.4 MG SUBL 273909 NITROGLYCERIN Inactive METHOCARBAMOL 750 MG TABS 1 PO QID PRN METHOCARBAMOL 750 MG TABS 323017 METHOCARBAMOL Inactive VALIUM 5 MG TAB 1 po 30 minutes prior to your MRI VALIUM 5 MG TAB 450064 DIAZEPAM Inactive ANUSOL-HC 25 MG SUPPOSITORY 1 suppository rectally each evening as needed for anal fissure ANUSOL-HC 25 MG SUPPOSITORY 9583144 HYDROCORTISONE JAYDEN (RECTAL) Inactive ANUSOL-HC 25 MG SUPPOSITORY 1 rectally twice a day as needed for hemorrhoids ANUSOL-HC 25 MG SUPPOSITORY 6936418 HYDROCORTISONE JAYDEN (RECTAL) Inactive FLONASE 50 MCG/ACT SUSP 1 spray each nostril am and hs FLONASE 50 MCG/ACT SUSP FLUTICASONE PROPIONATE Inactive DICLOFENAC SODIUM 75 MG TBEC 1 tablet by q 12 hours PRN headaches DICLOFENAC SODIUM 75 MG TBEC 387120 DICLOFENAC SODIUM Inactive PA VITAMIN D-3 2000 UNIT CAPS 1 CAP PO DAILY PA VITAMIN D-3 2000 UNIT CAPS CHOLECALCIFEROL Inactive PREVACID 30 MG CPDR Take 1 tablet by mouth daily-PRN PREVACID 30 MG CPDR 428116 LANSOPRAZOLE Inactive DOXYCYCLINE HYCLATE 100 MG TAB 1 tab twice a day for 14 days 2013 DOXYCYCLINE HYCLATE 100 MG TAB 9940565 DOXYCYCLINE HYCLATE Inactive XOPENEX 1.25 MG/3ML NEBU 1 neb every 4 hours if needed for cough/congestion XOPENEX 1.25 MG/3ML NEBU 832521 LEVALBUTEROL HCL Inactive CYCLOBENZAPRINE HCL 10 MG TABS 1/2 - 1 tab by mouth three times daily if needed for spasms/pain CYCLOBENZAPRINE HCL 10 MG TABS 796733 CYCLOBENZAPRINE HCL Inactive ALBUTEROL SULFATE 0.083 % NEBU SOLN one vial per nebulizer every 4-6 hours as needed ALBUTEROL SULFATE 0.083 % NEBU SOLN 342191 ALBUTEROL SULFATE Inactive CEFTIN 500 MG TAB 1 twice a day CEFTIN 500 MG TAB 457924 CEFUROXIME AXETIL Inactive ZOFRAN ODT 4 MG TBDP 1 pill dissolved by mouth every 4 hours if needed for nausea ZOFRAN ODT 4 MG TBDP 934220 ONDANSETRON Inactive ADULT ASPIRIN EC LOW STRENGTH 81 MG TBEC Take 1 tablet by mouth daily 2014 ADULT ASPIRIN EC LOW STRENGTH 81 MG TBEC 964694 ASPIRIN Inactive CALCIUM 600+D PLUS MINERALS 600-400 [...] or an apple NIACIN 500 MG TABS 545984 NIACIN Inactive NIASPAN 500 MG ORAL CR-TABS 1 pill nightly x 1 week, then 2 pills nightly x 1 week, then 3 pills nightly x 1 week, then 4 pills nightly NIASPAN 500 MG ORAL CR-TABS NIACIN (ANTIHYPERLIPIDEMIC) Inactive OXYCODONE HCL 5 MG ORAL CAPS 1 TAB PO Q HS OXYCODONE HCL 5 MG ORAL CAPS 2670613 OXYCODONE HCL Inactive FLUTICASONE PROPIONATE 50 MCG/ACT SUSP 1 to 2 sprays each nostril daily 04/21 FLUTICASONE PROPIONATE 50 MCG/ACT SUSP 1097421 FLUTICASONE PROPIONATE Inactive POLYTRIM 51053-2.1 UNIT/ML-% SOLN 1 gtt to affected eye q3h x 7 days POLYTRIM 54362-7.1 UNIT/ML-% SOLN 621516 POLYMYXIN B- TRIMETHOPRIM Inactive CHERATUSSIN AC 100-10 MG/5ML SYRP 1 tsp by mouth every 4 hours as needed for cough CHERATUSSIN AC 100-10 MG/5ML SYRP 051174 GUAIFENESIN-CODEINE Inactive LEVOTHYROXINE SODIUM 75 MCG TABS Take 1 tab daily LEVOTHYROXINE SODIUM 75 MCG TABS 363757 LEVOTHYROXINE SODIUM Inactive BACTRIM DS 800-160 MG TAB 1 tab by mouth twice daily BACTRIM DS 800-160 MG TAB 19820606 TRIMETHOPRIM-SULFAMETHOXAZOLE Inactive AZITHROMYCIN 250 MG TABS 2 po qd x 1 day, then 1 po qd x 4 days AZITHROMYCIN 250 MG TABS 5640278 AZITHROMYCIN Inactive CEFDINIR 300 MG CAPS by mouth twice a day CEFDINIR 300 MG CAPS 20020708 CEFDINIR Inactive AZITHROMYCIN 250 MG TABS 2 pills on day 1, then 1 pill daily x 4 days AZITHROMYCIN 250 MG TABS 4159251 AZITHROMYCIN Inactive DOXYCYCLINE HYCLATE 100 MG CAP 1 cap by mouth twice daily DOXYCYCLINE HYCLATE 100 MG CAP 3988264 DOXYCYCLINE HYCLATE Inactive FUROSEMIDE 20 MG TABS 1 pill by mouth daily, for edema FUROSEMIDE 20 MG TABS 890634 FUROSEMIDE Inactive AZITHROMYCIN 250 MG TABS 2 po qd x 1 day, then 1 po qd x 4 days AZITHROMYCIN 250 MG TABS 9923717 AZITHROMYCIN Inactive CEFTIN 500 MG TAB 1 twice a day CEFTIN 500 MG TAB 166258 CEFUROXIME AXETIL Inactive CEFDINIR 300 MG CAPS [...] for 2 days PREDNISONE 20 MG TAB 401022 PREDNISONE Inactive Immunizations Vaccine Administration Date Value Standard Description Seasonal influenza vaccine, injectable, containing preservative, for > 3 years old (Afluria, FluLaval, Fluzone, Fluvirin, Fluarix, Agriflu(>=18 yo)) Fluzone (>3 yrs.) [[id number]] Influenza, seasonal, injectable influenza immunization (Flu Vax) has been administered Influenza - Unspecified Formulation [CVX88] influenza virus vaccine, unspecified formulation Seasonal influenza vaccine, injectable, containing preservative, for > 3 years old (Afluria, FluLaval, Fluzone, Fluvirin, Fluarix, Agriflu(>=18 yo)) Fluzone (>3 yrs.) [ZOI907] Influenza, seasonal, injectable pneumococcal immunization administered Pneumovax 23 [CVX33] pneumococcal polysaccharide vaccine, 23 valent dT (Diphtheria and Tetanus) booster given given Td(adult) unspecified formulation Boostrix (Tetanus toxoid, reduced diphtheria toxoid and acellular pertussis vaccine, adsorbed), booster Boostrix [PEU719] tetanus toxoid, reduced diphtheria toxoid, and acellular [...] Panel - Chemistry sodium, serum 142 mmol/L 356-242 8921/06/30 potassium, serum 4.4 mmol/L 3.5-5.2 chloride, serum [...] Rate - Chemistry sodium, serum 139 mmol/L 252-977 4854/03/24 carbon dioxide, venous blood 22.4 mmol/L 21.0-32.0 [...] 0.80 ng/dL 0.76-1.46 sodium, serum 143 mmol/L 745-431 1705/05/02 carbon dioxide, venous blood 25.6 mmol/L 21.0-32.0 [...] Negative mg/dL Negative sodium, serum 142 mmol/L 426-555 7196/07/18 carbon dioxide, venous blood 27.8 mmol/L 21.0-32.0 [...] negative Encounters Code Encounter Date Provider Facility CPT-30525 Level 3 Est. Patient 20:13:34 PRODUCTION LABORER Jared Og MD [facility] CPT-90767 Level 4 Est. Patient 16:31:27 CDT Gab Padron MD [facility] CPT-49575 Level 2 Est. Patient 12:23:38 CDT Jared Og MD [facility] CPT-57868 Level 3 Est. Patient 11:01:51 CDT Gab Padron MD [facility] CPT-81644 Level 3 Est. Patient 15:27:02 CDT Jared Og MD [facility] CPT-92540 Level 4 Est. Patient 09:25:27 CDT Gab Padron MD [facility] CPT-27622 Level 3 Est. Patient 10:29:41 CDT Rodrigo Sarah [facility]-16293 Level 4 Est. Patient 17:51:05 CDT Gab Padron MD [facility] CPT-27524 Level 3 Est. Patient 14:18:08 CDT Gab Padron MD [facility]-92683 Level 4 Est. Patient 10:18:54 CDT Gab Padron MD [facility]-18466 Level 3 Est. Patient 11:30:07 CDT Rodrigo Sarah [facility] CPT-70889 Level 4 Est. Patient 21:02:30 PRODUCTION LABORER Gab Padron MD [facility] CPT-66362 Level 3 Est. Patient 11:02:19 PRODUCTION LABORER Gab Padron MD [facility] CPT-07645 Level 4 Est. Patient 22:24:31 PRODUCTION LABORER Gab Padron MD [facility] CPT-61618 Level 3 Est. Patient 18:33:46 PRODUCTION LABORER Gab Padron MD [facility] CPT-84207 Level 3 Est. Patient 16:19:11 CDT Yolande Lindsay MD [facility]-83800 Level 3 Est. Patient 18:59:14 CDT Yolande Lindsay MD [facility] CPT-77396 Level 4 Est. Patient 21:29:26 CDT Yolande Lindsay MD [facility]-15789 Level 3 Est. Patient 07:37:45 CDT Yolande Lindsay MD [facility]-47183 Level 3 Est. Patient 17:03:46 CDT Yolande Lindsay MD [facility]-55222 Level 4 Est. Patient 20:02:13 PRODUCTION LABORER Yolande Lindsay MD [facility]-85210 Level 3 Est. Patient 16:02:07 PRODUCTION LABORER Alexis Ordaz MD [facility] CPT-00225 Level 3 Est. Patient 12:41:24 PRODUCTION LABORER Yolande Lindsay MD [facility]-23142 Level 3 Est. Patient 15:41:20 PRODUCTION LABORER Yolande Lindsay MD [facility]-39282 Level 3 Est. Patient 13:20:02 PRODUCTION LABORER Yolande Lindsay MD [facility]-67226 Level 3 Est. Patient 15:00:38 CDT Jared Og MD [facility] CPT-44251 Level 3 Est. Patient 10:22:32 CDT Yolande Lindsay MD [facility]-98006 Level 3 Est. Patient 17:12:58 CDT Yoalnde Lindsay MD [facility] CPT-84453 Level 4 Est. Patient 13:30:58 CDT Yolande Lindsay MD [facility] CPT-72041 Level 4 New Patient 09:02:42 CDT Jared Og MD [facility]-36547 Level 3 Est. Patient 08:19:07 CDT Yolande Lindsay MD [facility]-57977 Level 3 Est. Patient 12:00:13 PRODUCTION LABORER Gab Padron MD [facility]-56323 Level 3 Est. Patient 16:15:23 PRODUCTION LABORER Yolande Lindsay MD [facility]-67815 Level 2 Est. Patient 19:47:15 CDT Yolande Lindsay MD [facility]37122 Level 3 Est. Patient 21:38:31 CDT Yolande Lindsay MD [facility]-59962 Level 3 Est. Patient 10:25:12 CDT Adiel PERAZA [facility]-28534 Level 4 Est. Patient 10:51:58 CDT Yolande Lindsay MD [facility]72160 Level 3 Est. Patient 14:04:55 PRODUCTION LABORER Rodrigo Sarah [facility]-80646 Level 3 Est. Patient 10:46:35 PRODUCTION LABORER Rodrigo Sarah [facility]-11020 Level 3 Est. Patient 14:24:37 PRODUCTION LABORER Yolande Lindsay MD [facility]-91085 Level 3 Est. Patient 17:41:58 PRODUCTION LABORER Yolande Lindsay MD [facility]-32223 Level 2 Est. Patient 22:01:41 PRODUCTION LABORER Rodrigo Sarah [facility]-18770 Level 2 Est. Patient 22:01:11 PRODUCTION LABORER Rodrigo Sarah [facility]-91675 Level 3 Est. Patient 10:12:29 PRODUCTION LABORER Rodrigo Sarah [facility]-64069 Level 3 Est. Patient 11:05:44 CDT Alexis Ordaz MD [facility]-60758 Level 3 Est. Patient 14:57:20 CDT Yolande Lindsay MD [facility]99958 Level 3 Est. Patient 14:40:57 CDT Yolande Lindsay MD PhD [facility] CPT-07759 Level 3 Est. Patient 20:55:40 CDT Yolande Lindsay MD PhD [facility] CPT-17878 Level 3 Est. Patient 12:42:38 PRODUCTION LABORER Yolande Lindsay MD PhD [facility] CPT-54938 Level 3 Est. Patient 11:54:49 PRODUCTION LABORER Des Hines MD [facility] CPT-59197 Level 3 Est. Patient 17:06:38 CDT Dewayne PERAZA [facility] Procedures Code Procedure Name Date Entry Date Standard Description CPT-29974 First Vx - Ix admin via ID IM or jet injects without counseling by physician 11:52:31 CDT CPT-18250 Fluzone Preservative Free Intramuscular Suspension 11:52 :31 CDT CPT-38309 Foot, left, comp min 3V - XRAY USE ONLY 09:24:54 CDT CPT-45986 Abd single AP View - XRAY USE ONLY 11:16:17 CDT CPT-98559 T spine AP/ Lat - XRAY USE ONLY 09:34:21 CDT CPT-95524 Chest 2V Frontal and Lat - XRAY USE ONLY 10:48:51 CDT CPT-99282 LS spine comp w obliq 13:28:00 PRODUCTION LABORER CPT-J1040 Depo Medrol 80 mg (Methyl Prednisolone Acetate) 10:51: 28 PRODUCTION LABORER CPT-J1100 Decadron 8mg (Dexamethasone) 10:51:28 PRODUCTION LABORER CPT-45902 Abx/Therapy Injection 10:51:28 PRODUCTION LABORER CPT-J1100 Decadron 8mg (Dexamethasone) 21:02:30 PRODUCTION LABORER CPT-J1040 Depo Medrol 80 mg (Methyl Prednisolone Acetate) 21:02: 30 PRODUCTION LABORER [id number] Event Monitor - MC Transmission 09:12:32 CDT 08/06 [id number] Event Monitor - MC review and interp 09:12:32 CDT [id number] Event Monitor - MC recording 09:12:32 CDT CPT-59873 EKG Trac and Interp 16:50:22 CDT CPT-J1030 Depo Medrol 40 mg (Methyl Prednisolone Acetate) 17:05: 54 CDT CPT-J1100 Decadron 4mg (Dexamethasone) 17:05:54 CDT CPT-88705 Abx/Therapy Injection 17:05:54 CDT CPT-J1100 Decadron 4mg (Dexamethasone) 16:55:28 CDT CPT-J1030 Depo Medrol 40 mg (Methyl Prednisolone Acetate) 16:55: 28 CDT CPT-51197 Ankle Complete - Min 3V 15:58:50 CDT CPT-20613 Knee 3V 15:58:50 CDT CPT-08355 Hip comp min 2V 15:58:50 CDT CPT-J2270 Morphine Sulfate 10 mg 14:25:44 PRODUCTION LABORER CPT-J2550 Phenergan 12.5 mg (Promethazine) 14:25:44 PRODUCTION LABORER CPT-04830 Abx/Therapy Injection 14:25:44 PRODUCTION LABORER CPT-J2550 Phenergan 12.5 mg (Promethazine) 14:08:03 PRODUCTION LABORER CPT-J2270 Morphine Sulfate 10 mg 14:08:03 PRODUCTION LABORER CPT-78112 Bladder Scan 15:00:38 CDT CPT-TCMM Transitional Care Mgmt-Moderate 09:52:22 CDT CPT-J1030 Depo Medrol 40 mg (Methyl Prednisolone Acetate) 10:55: 18 CDT CPT-J1100 Decadron 4mg (Dexamethasone) 10:55:18 CDT CPT-48589 Abx/Therapy Injection 10:55:18 CDT CPT-J1030 Depo Medrol 40 mg (Methyl Prednisolone Acetate) 10:22: 32 CDT CPT-J1100 Decadron 4mg (Dexamethasone) 10:22:32 CDT CPT-98711 Postop F/U Visit 14:37:13 CDT CPT-60083 Ankle Complete - Min 3V 17:11:58 CDT CPT-47109 Foot comp min 3V 17:11:58 CDT CPT-20026 Bladder Scan 09:56:58 CDT CPT-35998 Postop F/U Visit 09:56:58 CDT CPT-40900 Cystoscopy 09:02:42 CDT CPT-42570 Bladder Scan 09:02:42 CDT CPT-94766 Abd single AP View 16:00:35 CDT CPT-95283 Administration single or combination vaccine inc oral 10 :15:43 CDT CPT-25733 Influenza split virus > age 3 10:15:43 CDT CPT-65091 Nail Avulsion 09:24:57 CDT CPT-OV Office Visit 11:15:41 CDT CPT-60794 Abx/Therapy Injection 10:51:30 CDT CPT-J3301 Kenalog 40 mg (Triamcinolone Acetonide) 10:25:12 CDT CPT-J1100 Decadron 4mg (Dexamethasone) 10:25:12 CDT CPT-40018 Anoscopy diagnostic 10:36:12 CDT CPT-OV Office Visit 15:34:31 CDT CPT-04562 Abx/Therapy Injection 08:21:15 PRODUCTION LABORER CPT-J1885 Toradol 60 mg (Ketorolac) 10:46:35 PRODUCTION LABORER CPT-OV Office Visit 19:51:16 PRODUCTION LABORER CPT-59124 Spec Collection and Handling Fee 14:34:18 PRODUCTION LABORER CPT-PV Prev. Care Visit 14:19:18 PRODUCTION LABORER CPT-48593 Postop F/U Visit 14:47:51 PRODUCTION LABORER CPT-86495 Postop F/U Visit 15:15:14 PRODUCTION LABORER CPT-74976 Postop F/U Visit 14:41:43 CDT CPT-88930 Postop F/U Visit 15:47:46 CDT CPT-OV Office Visit 15:27:23 CDT CPT-OV Office Visit 17:20:34 CDT CPT-55270 Abx/Therapy Injection 15:05:57 CDT CPT-J1100 Decadron 8mg (Dexamethasone) 14:44:57 CDT CPT-J1040 Depo Medrol 80 mg (Methyl Prednisolone Acetate) 14:44: 57 CDT CPT-JTINJ Joint Injection 10:17:37 CDT CPT-15004 Administration 2+ single or combination vaccines inc oral 13:01:46 PRODUCTION LABORER CPT-74300 Administration single or combination vaccine inc oral 13 :01:46 PRODUCTION LABORER CPT-75588 Pneumovax 13:01:46 PRODUCTION LABORER CPT-08561 Influenza split virus > age 3 13:01:46 PRODUCTION LABORER CPT-77049 Administration single or combination vaccine inc oral 08 :56:49 CDT CPT-95781 Tdap 08:56:49 CDT
--- OUTSIDE RECORDS SUMMARY | 2017-03-22 01:00 | XMS REPORT ---
Author Author [facility] Medical Staff Organization [facility] Address [address] [id number] Phone [phone] Care Team Providers Care Grounding Engineer Name Role Phone LENKA HUTSON, EUNICE PP [phone] Summary purpose TRANSITION OF CARE AUTO GENERATION [...] tests and/or laboratory data RESULTS Radiology Results [id number] MRI L-SPINE W/O CONT PACs Image DATE [...] both kidneys. DO ARIS Cruz/lenny 11/18/2014 14:40:00 11/18/2014 15:08:05 cc:Dr. Pk Nicholson This document has been electronically Signed by: On: History of procedures No procedures recorded for [...]
--- OUTSIDE RECORDS SUMMARY | 2017-03-22 01:03 | XMS REPORT | Clinical Summary ---
Author Author Admin, E Organization [facility] [facility] Address Unknown Phone Unavailable Allergies, Adverse Reactions, Alerts Allergy Name Reaction Description Start Date Severity Status Provider VALENTIN Critical Active Rodrigo Fracharlottel LABOR[facility] GENERAL CHLORHEXIDINE GLUCONATE tongue and gums swollen Critical Active Hoa tOto RMA NORFLEX Rash Critical Active Silvestrellina Frazell LABORER GENERAL TRAZODONE HCL sees things Critical Active [...] then one daily for three days PREDNISONE 14543981141 Active Gab Padron MD Active TRIAMCINOLONE ACETONIDE 0.1 % CREA apply bid sparingly to rash TRIAMCINOLONE ACETONIDE 45067080466 No Longer Active Gab Padron MD Active TRAMADOL HCL 50 MG TABS 1 tab po every 6 hrs prn pain TRAMADOL HCL 59978356878 No Longer Active Gab Padron MD Active BACTRIM DS 800-160 MG TAB 1 tab by mouth twice daily TRIMETHOPRIM-SULFAMETHOXAZOLE 26356707175 No Longer Active Tisha Lambert LABORER GENERAL Active ADVAIR DISKUS 250-50 MCG/DOSE AEPB 1 puff BID FLUTICASONE-SALMETEROL 45998204559 No Longer Active Todd Callaway MD Active ONDANSETRON 4 MG TBDP 1 q4h PRN nausea ONDANSETRON 75861767499 No Longer Active LONNIE Iglesias Active FISH OIL 1000 MG CAPS 3 pills daily OMEGA-3 FATTY ACIDS 10035362611 No Longer Active LONNIE Iglesias Active CETIRIZINE HCL 10 MG ORAL TABS 1 po qd PRN Allergies CETIRIZINE HCL 35103043137 Active Gab Padron MD Active CLARITIN 10 MG TAB 1 tablet by mouth daily as needed for allergies LORATADINE 98318884369 No Longer Active Gab Padron MD Active PREDNISONE 20 MG TAB take 3 tabs daily for 3 days, 2 tabs daily for 3 days, 1 tab daily for 3 days, 1/2 tab daily for 3 days PREDNISONE 62872431866 No Longer Active Tisha Lambert APRN Active PREDNISONE 20 MG TAB 2 tabs daily for 3 days, 1 tab daily for 3 days, 1/2 tab daily for 2 days PREDNISONE 43327557919 No Longer Active Gab Padron MD Active ZOFRAN ODT 4 MG TBDP 1 po q6hr PRN Nausea ONDANSETRON 04372435532 Active Gab Padron MD Active IBUPROFEN 600 MG TAB 1 tablet by mouth every 6 hours for 7 days, then 1 tablet every 6 hours as needed. Take with food IBUPROFEN 66935367557 Active Rodrigo Sarah APRN Active BACTRIM DS 800-160 MG TAB 1 tab by mouth twice daily TRIMETHOPRIM-SULFAMETHOXAZOLE 32746311552 No Longer Active Gab Padron MD Active LEVOTHYROXINE SODIUM 75 MCG TABS Take 1 tab daily LEVOTHYROXINE SODIUM 16571837602 No Longer Active Mariana HICKEYA Active SYNTHROID 88 MCG ORAL TABS Take one by mouth daily LEVOTHYROXINE SODIUM 35121767221 Active Gab Padron MD Active CHERATUSSIN AC 100-10 MG/5ML SYRP 1 tsp by mouth every 4 hours as needed for cough GUAIFENESIN-CODEINE 29542674541 No Longer Active Gab Padron MD Active POLYTRIM 71289-0.1 UNIT/ML-% SOLN 1 gtt to affected eye q3h x 7 days POLYMYXIN B-TRIMETHOPRIM 75740750811 No Longer Active Gab Padron MD Active FLUTICASONE PROPIONATE 50 MCG/ACT SUSP 1 to 2 sprays each nostril daily 04/21 FLUTICASONE PROPIONATE 69202740914 No Longer Active Gab Padron MD Active TRILEPTAL 600 MG TABS Take one 1 tablet in Am and 1 tablet at night OXCARBAZEPINE 89817395008 Active Gab Padron MD Active CEFDINIR 300 MG CAPS 1 po BID x 10 days CEFDINIR 07901217962 No Longer Active Rodrigo Sarah APRN Active CEFTIN 500 MG TAB 1 twice a day CEFUROXIME AXETIL 69057754188 No Longer Active Gab Padron MD Active AZITHROMYCIN 250 MG TABS 2 po qd x 1 day, then 1 po qd x 4 days AZITHROMYCIN 54660116591 No Longer Active Rodrigo Sarah APRN Active OXYCODONE HCL 5 MG ORAL CAPS 1 TAB PO Q HS OXYCODONE HCL 57412232497 No Longer Active Rodrigo Sarah APRN Active NIASPAN 500 MG ORAL CR-TABS 1 pill nightly x 1 week, then 2 pills nightly x 1 week, then 3 pills nightly x 1 week, then 4 pills nightly NIACIN (ANTIHYPERLIPIDEMIC) 40413948941 No Longer Active Rodrigo Sarah APRN Active NIACIN 500 MG TABS 1 pill by mouth nightly x 1 week, then 2 pills x 1 week, then 3 pills x 1 week, then 4 pills nightly - take after evening meal, with applesauce or an apple NIACIN 35146794704 No Longer Active Yolande Lindsay MD PhD Active FUROSEMIDE 20 MG TAB 1 tablet by mouth daily FUROSEMIDE 00526142184 Active Gab Padron MD Active LISINOPRIL 20 MG ORAL TABS 1 tab by mouth daily LISINOPRIL 02149829884 Active Gab Padron MD Active FUROSEMIDE 20 MG TABS 1 pill by mouth daily, for edema FUROSEMIDE 39281090599 No Longer Active Yolande Lindsay MD PhD Active ATORVASTATIN CALCIUM 10 MG TABS 1 pill by mouth daily, for cholesterol 09/06 ATORVASTATIN CALCIUM 19067055913 Active Gab Padron MD Active CALCIUM 600+D PLUS MINERALS 600-400 MG-UNIT ORAL CHEW 1 tab by mouth daily CALCIUM CARBONATE-VIT D-MIN 20640835960 No Longer Active Yolande Lindsay MD PhD Active CYCLOBENZAPRINE HCL 10 MG TABS 1 tablet by mouth three times daily as needed for muscle spasm/pain CYCLOBENZAPRINE HCL 14301730044 Active Yolande Lindsay MD PhD Active ADULT ASPIRIN EC LOW STRENGTH 81 MG TBEC Take 1 tablet by mouth daily 2014 ASPIRIN 99437071485 No Longer Active Yolande Lindsay MD PhD Active ZOFRAN ODT 4 MG TBDP 1 pill dissolved by mouth every 4 hours if needed for nausea ONDANSETRON 36308307880 No Longer Active Yolande Lindsay MD PhD Active CEFTIN 500 MG TAB 1 twice a day CEFUROXIME AXETIL 67109231823 No Longer Active Yolande Lindsay MD PhD Active ALBUTEROL SULFATE 0.083 % NEBU SOLN one vial per nebulizer every 4-6 hours as needed ALBUTEROL SULFATE 79423253192 No Longer Active Alexis Ordaz MD Active DOXYCYCLINE HYCLATE 100 MG CAP 1 cap by mouth twice daily DOXYCYCLINE HYCLATE 79765600677 No Longer Active Yolande Lindsay MD PhD Active CYCLOBENZAPRINE HCL 10 MG TABS 1/2 - 1 tab by mouth three times daily if needed for spasms/pain CYCLOBENZAPRINE HCL 16257030195 No Longer Active Yolande Lindsay MD PhD Active AZITHROMYCIN 250 MG TABS 2 pills on day 1, then 1 pill daily x 4 days AZITHROMYCIN 27726083224 No Longer Active Yolande Lindsay MD PhD Active XOPENEX 1.25 MG/3ML NEBU 1 neb every 4 hours if needed for cough/congestion LEVALBUTEROL HCL 44084609064 No Longer Active Yolande Lindsay MD PhD Active DOXYCYCLINE HYCLATE 100 MG TAB 1 tab twice a day for 14 days 2013 DOXYCYCLINE HYCLATE 71155706500 No Longer Active Yolande Lindsay MD PhD Active PREVACID 30 MG CPDR Take 1 tablet by mouth daily-PRN LANSOPRAZOLE 14842560185 No Longer Active Yolande Lindsay MD PhD Active PA VITAMIN D-3 2000 UNIT CAPS 1 CAP PO DAILY CHOLECALCIFEROL 26306332751 No Longer Active Yolande Lindsay MD PhD Active CEFDINIR 300 MG CAPS by mouth twice a day CEFDINIR 64643706497 No Longer Active Gab Padron MD Active TOPAMAX 50 MG TABS 1 PO twice daily TOPIRAMATE 41285505793 Active Yolande Lindsay MD PhD Active AZITHROMYCIN 250 MG TABS 2 po qd x 1 day, then 1 po qd x 4 days AZITHROMYCIN 84786836781 No Longer Active Yolande Lindsay MD PhD Active DICLOFENAC SODIUM 75 MG TBEC 1 tablet by q 12 hours PRN headaches DICLOFENAC SODIUM 39649026661 No Longer Active Yolande Lindsay MD PhD Active FLONASE 50 MCG/ACT SUSP 1 spray each nostril am and hs FLUTICASONE PROPIONATE 23973863967 No Longer Active Todd Callaway MD Active ANUSOL-HC 25 MG SUPPOSITORY 1 rectally twice a day as needed for hemorrhoids HYDROCORTISONE JAYDEN (RECTAL) 61392549822 No Longer Active Yolande Lindsay MD PhD Active ANUSOL-HC 25 MG SUPPOSITORY 1 suppository rectally each evening as needed for anal fissure HYDROCORTISONE JAYDEN (RECTAL) 73125983113 No Longer Active LONNIE Iglesias Active VALIUM 5 MG TAB 1 po 30 minutes prior to your MRI DIAZEPAM 04654757335 No Longer Active LONNIE Iglesias Active METHOCARBAMOL 750 MG TABS 1 PO QID PRN METHOCARBAMOL 81327509612 No Longer Active Daphne Wetzel APRN Active NITROSTAT 0.4 MG SUBL as directed NITROGLYCERIN 07485218354 No Longer Active Jillina Frazell LABORER GENERAL Active ROBAXIN-750 750 MG TABS 2 four times a day for 3 days as needed for muscle spasm, then 1 four times a day as needed METHOCARBAMOL 29083051939 No Longer Active Silvestrellnacho Sarah APRN Active HYDROCODONE-ACETAMINOPHEN 5-325 MG TABS 1 q 4-6 hrs prn HYDROCODONE-ACETAMINOPHEN 47538252462 No Longer Active Silvestrellnacho Sarah APRN Active VERAPAMIL HCL CR 180 MG CR-TABS TAKE 1 TAB DAILY VERAPAMIL HCL 69063104093 No Longer Active Yolande Lindsay MD PhD Active BACTRIM DS 800-160 MG TAB 1 tab by mouth twice daily TRIMETHOPRIM-SULFAMETHOXAZOLE 29479702943 No Longer Active Yolande Lindsay MD PhD Active NEXIUM 40 MG PACK 1 by mouth daily ESOMEPRAZOLE MAGNESIUM 16996414883 No Longer Active Des Hines MD Active EPIPEN 2-CHARLETTE 0.3 MG/0.3ML OMARI as need for allergic reaction EPINEPHRINE 78002202048 Active Yolande Lindsay MD PhD Active NEXIUM 40 MG CPDR 1 PO Q D DAY ESOMEPRAZOLE MAGNESIUM 39839559917 No Longer Active Sadia Perry RN Active NEXIUM 40 MG PACK 1 by mouth daily NEXIUM 40 MG PACK ESOMEPRAZOLE MAGNESIUM Inactive VERAPAMIL HCL CR 180 MG CR-TABS TAKE 1 TAB DAILY VERAPAMIL HCL CR 180 MG CR-TABS VERAPAMIL HCL Inactive HYDROCODONE-ACETAMINOPHEN 5-325 MG TABS 1 q 4-6 hrs prn HYDROCODONE-ACETAMINOPHEN 5-325 MG TABS 181337 HYDROCODONE-ACETAMINOPHEN Inactive ROBAXIN-750 750 MG TABS 2 four times a day for 3 days as needed for muscle spasm, then 1 four times a day as needed ROBAXIN-750 750 MG TABS 780895 METHOCARBAMOL Inactive NITROSTAT 0.4 MG SUBL as directed NITROSTAT 0.4 MG SUBL 982321 NITROGLYCERIN Inactive METHOCARBAMOL 750 MG TABS 1 PO QID PRN METHOCARBAMOL 750 MG TABS 509506 METHOCARBAMOL Inactive VALIUM 5 MG TAB 1 po 30 minutes prior to your MRI VALIUM 5 MG TAB 576384 DIAZEPAM Inactive ANUSOL-HC 25 MG SUPPOSITORY 1 suppository rectally each evening as needed for anal fissure ANUSOL-HC 25 MG SUPPOSITORY 5071605 HYDROCORTISONE JAYDEN (RECTAL) Inactive ANUSOL-HC 25 MG SUPPOSITORY 1 rectally twice a day as needed for hemorrhoids ANUSOL-HC 25 MG SUPPOSITORY 2602830 HYDROCORTISONE JAYDEN (RECTAL) Inactive FLONASE 50 MCG/ACT SUSP 1 spray each nostril am and hs FLONASE 50 MCG/ACT SUSP 0913526 FLUTICASONE PROPIONATE Inactive DICLOFENAC SODIUM 75 MG TBEC 1 tablet by q 12 hours PRN headaches DICLOFENAC SODIUM 75 MG TBEC 360266 DICLOFENAC SODIUM Inactive PA VITAMIN D-3 2000 UNIT CAPS 1 CAP PO DAILY PA VITAMIN D-3 2000 UNIT CAPS CHOLECALCIFEROL Inactive PREVACID 30 MG CPDR Take 1 tablet by mouth daily-PRN PREVACID 30 MG CPDR 440078 LANSOPRAZOLE Inactive DOXYCYCLINE HYCLATE 100 MG TAB 1 tab twice a day for 14 days 2013 DOXYCYCLINE HYCLATE 100 MG TAB 8641755 DOXYCYCLINE HYCLATE Inactive XOPENEX 1.25 MG/3ML NEBU 1 neb every 4 hours if needed for cough/congestion XOPENEX 1.25 MG/3ML NEBU 366141 LEVALBUTEROL HCL Inactive CYCLOBENZAPRINE HCL 10 MG TABS 1/2 - 1 tab by mouth three times daily if needed for spasms/pain CYCLOBENZAPRINE HCL 10 MG TABS 271967 CYCLOBENZAPRINE HCL Inactive ALBUTEROL SULFATE 0.083 % NEBU SOLN one vial per nebulizer every 4-6 hours as needed ALBUTEROL SULFATE 0.083 % NEBU SOLN 761593 ALBUTEROL SULFATE Inactive CEFTIN 500 MG TAB 1 twice a day CEFTIN 500 MG TAB 565254 CEFUROXIME AXETIL Inactive ZOFRAN ODT 4 MG TBDP 1 pill dissolved by mouth every 4 hours if needed for nausea ZOFRAN ODT 4 MG TBDP 314985 ONDANSETRON Inactive ADULT ASPIRIN EC LOW STRENGTH 81 MG TBEC Take 1 tablet by mouth daily 2014 ADULT ASPIRIN EC LOW STRENGTH 81 MG TBEC 121810 ASPIRIN Inactive CALCIUM 600+D PLUS MINERALS 600-400 [...] or an apple NIACIN 500 MG TABS 910816 NIACIN Inactive NIASPAN 500 MG ORAL CR-TABS 1 pill nightly x 1 week, then 2 pills nightly x 1 week, then 3 pills nightly x 1 week, then 4 pills nightly NIASPAN 500 MG ORAL CR-TABS NIACIN (ANTIHYPERLIPIDEMIC) Inactive OXYCODONE HCL 5 MG ORAL CAPS 1 TAB PO Q HS OXYCODONE HCL 5 MG ORAL CAPS 6438333 OXYCODONE HCL Inactive FLUTICASONE PROPIONATE 50 MCG/ACT SUSP 1 to 2 sprays each nostril daily 04/21 FLUTICASONE PROPIONATE 50 MCG/ACT SUSP 7210456 FLUTICASONE PROPIONATE Inactive POLYTRIM 01813-2.1 UNIT/ML-% SOLN 1 gtt to affected eye q3h x 7 days POLYTRIM 56804-0.1 UNIT/ML-% SOLN 817210 POLYMYXIN B- TRIMETHOPRIM Inactive CHERATUSSIN AC 100-10 MG/5ML SYRP 1 tsp by mouth every 4 hours as needed for cough CHERATUSSIN AC 100-10 MG/5ML SYRP 858646 GUAIFENESIN-CODEINE Inactive LEVOTHYROXINE SODIUM 75 MCG TABS Take 1 tab daily LEVOTHYROXINE SODIUM 75 MCG TABS 822582 LEVOTHYROXINE SODIUM Inactive CLARITIN 10 MG TAB 1 tablet by mouth daily as needed for allergies CLARITIN 10 MG TAB 120995 LORATADINE Inactive FISH OIL 1000 MG CAPS 3 pills daily FISH OIL 1000 MG CAPS OMEGA-3 FATTY ACIDS Inactive ONDANSETRON 4 MG TBDP 1 q4h PRN nausea ONDANSETRON 4 MG TBDP 233964 ONDANSETRON Inactive ADVAIR DISKUS 250-50 MCG/DOSE AEPB 1 puff BID ADVAIR DISKUS 250-50 MCG/DOSE AEPB FLUTICASONE-SALMETEROL Inactive TRAMADOL HCL 50 MG TABS 1 tab po every 6 hrs prn pain TRAMADOL HCL 50 MG TABS 655651 TRAMADOL HCL Inactive TRIAMCINOLONE ACETONIDE 0.1 % CREA apply bid sparingly to rash TRIAMCINOLONE ACETONIDE 0.1 % CREA 7189652 TRIAMCINOLONE ACETONIDE Inactive BACTRIM DS 800-160 MG TAB 1 tab by mouth twice daily BACTRIM DS 800-160 MG TAB 591977 TRIMETHOPRIM-SULFAMETHOXAZOLE Inactive AZITHROMYCIN 250 MG TABS 2 po qd x 1 day, then 1 po qd x 4 days AZITHROMYCIN 250 MG TABS 6734195 AZITHROMYCIN Inactive CEFDINIR 300 MG CAPS by mouth twice a day CEFDINIR 300 MG CAPS 811476 CEFDINIR Inactive AZITHROMYCIN 250 MG TABS 2 pills on day 1, then 1 pill daily x 4 days AZITHROMYCIN 250 MG TABS 4386269 AZITHROMYCIN Inactive DOXYCYCLINE HYCLATE 100 MG CAP 1 cap by mouth twice daily DOXYCYCLINE HYCLATE 100 MG CAP 1900345 DOXYCYCLINE HYCLATE Inactive FUROSEMIDE 20 MG TABS 1 pill by mouth daily, for edema FUROSEMIDE 20 MG TABS 397657 FUROSEMIDE Inactive AZITHROMYCIN 250 MG TABS 2 po qd x 1 day, then 1 po qd x 4 days AZITHROMYCIN 250 MG TABS 1285878 AZITHROMYCIN Inactive CEFTIN 500 MG TAB 1 twice a day CEFTIN 500 MG TAB 260411 CEFUROXIME AXETIL Inactive CEFDINIR 300 MG CAPS 1 po BID x 10 days CEFDINIR 300 MG CAPS 243819 CEFDINIR Inactive BACTRIM DS 800-160 MG TAB 1 tab by mouth twice daily BACTRIM DS 800-160 MG TAB 931013 TRIMETHOPRIM-SULFAMETHOXAZOLE Inactive PREDNISONE 20 MG TAB 2 tabs daily for 3 days, 1 tab daily for 3 days, 1/2 tab daily for 2 days PREDNISONE 20 MG TAB 490077 PREDNISONE Inactive PREDNISONE 20 MG TAB take 3 tabs daily for 3 days, 2 tabs daily for 3 days, 1 tab daily for 3 days, 1/2 tab daily for 3 days PREDNISONE 20 MG TAB 910605 PREDNISONE Inactive BACTRIM DS 800-160 MG TAB 1 tab by mouth twice daily BACTRIM DS 800-160 MG TAB 19820606 TRIMETHOPRIM-SULFAMETHOXAZOLE Inactive Immunizations Vaccine Administration Date Value Standard Description Seasonal influenza vaccine, injectable, containing preservative, for > 3 years old (Afluria, FluLaval, Fluzone, Fluvirin, Fluarix, Agriflu(>=18 yo)) Fluzone (>3 yrs.) [BFK383] Influenza, seasonal, injectable influenza immunization (Flu Vax) has been administered Influenza - Unspecified Formulation [CVX88] influenza virus vaccine, unspecified formulation Seasonal influenza vaccine, injectable, containing preservative, for > 3 years old (Afluria, FluLaval, Fluzone, Fluvirin, Fluarix, Agriflu(>=18 yo)) Fluzone (>3 yrs.) [KDN675] Influenza, seasonal, injectable pneumococcal immunization administered Pneumovax 23 [CVX33] pneumococcal polysaccharide vaccine, 23 valent dT (Diphtheria and Tetanus) booster given given Td(adult) unspecified formulation Boostrix (Tetanus toxoid, reduced diphtheria toxoid and acellular pertussis vaccine, adsorbed), booster Boostrix [BWC900] tetanus toxoid, reduced diphtheria toxoid, and acellular [...] PANEL - Chemistry cholesterol, serum 166 mg/dL 961-247 3192/12/06 triglyceride, serum, fasting 86 mg/dL 30-200 HDL [...] negative Encounters Code Encounter Date Provider Facility CPT-91860 Level 3 Est. Patient 14:50:29 CDT Gab Padron MD [facility] CPT-03908 Level 3 Est. Patient 14:46:09 CDT Tisha Lambert APRN [facility] CPT-28523 Level 4 New Patient 16:13:15 CDT Todd Callaway MD [facility] CPT-14317 Level 4 Est. Patient 13:18:33 CDT Gab Padron MD [facility] CPT-27393 Level 3 Est. Patient 15:20:50 CDT Jared Og MD [facility] CPT-07816 Level 3 Est. Patient 17:43:55 LABORATORY VETERINARIAN Gab Padron MD [facility] CPT-56729 Level 3 Est. Patient 17:07:49 LABORATORY VETERINARIAN Jared Og MD [facility] CPT-54851 Level 4 Est. Patient 19:55:18 LABORATORY VETERINARIAN Jared Og MD [facility] CPT-46406 Level 3 Est. Patient 20:13:34 LABORATORY VETERINARIAN Jared Og MD [facility] CPT-50661 Level 4 Est. Patient 16:31:27 CDT Gab Padron MD [facility] CPT-16383 Level 2 Est. Patient 12:23:38 CDT Jared Og MD [facility] CPT-34107 Level 3 Est. Patient 11:01:51 CDT Gab Padron MD [facility] CPT-62736 Level 3 Est. Patient 15:27:02 CDT Jared Og MD [facility] CPT-29671 Level 4 Est. Patient 09:25:27 CDT Gab Padron MD [facility] CPT-78298 Level 3 Est. Patient 10:29:41 CDT Rodrigo Sarah [facility] CPT-87835 Level 4 Est. Patient 17:51:05 CDT Gab Padron MD [facility] CPT-41466 Level 3 Est. Patient 14:18:08 CDT Gab Padron MD [facility] CPT-64645 Level 4 Est. Patient 10:18:54 CDT Gab Padron MD [facility] CPT-25037 Level 3 Est. Patient 11:30:07 CDT Rodrigo Sarah [facility] CPT-92314 Level 4 Est. Patient 21:02:30 LABORATORY VETERINARIAN Gab Padron MD [facility]-84548 Level 3 Est. Patient 11:02:19 LABORATORY VETERINARIAN Gab Padron MD [facility]-56377 Level 4 Est. Patient 22:24:31 LABORATORY VETERINARIAN Gab Padron MD [facility]-40116 Level 3 Est. Patient 18:33:46 LABORATORY VETERINARIAN Gab Padron MD [facility]-58718 Level 3 Est. Patient 16:19:11 CDT Yolande Lindsay MD [facility]-37693 Level 3 Est. Patient 18:59:14 CDT Yolande Lindsay MD [facility]-17313 Level 4 Est. Patient 21:29:26 CDT Yolande Lindsay MD [facility]-25192 Level 3 Est. Patient 07:37:45 CDT Yolande Lindsay MD [facility]-14717 Level 3 Est. Patient 17:03:46 CDT Yolande Lindsay MD [facility]-00579 Level 4 Est. Patient 20:02:13 LABORATORY VETERINARIAN Yolande Lindsay MD [facility]-77619 Level 3 Est. Patient 16:02:07 LABORATORY VETERINARIAN Alexis Ordaz MD [facility]-62061 Level 3 Est. Patient 12:41:24 LABORATORY VETERINARIAN Yolande Lindsay MD [facility]-94435 Level 3 Est. Patient 15:41:20 LABORATORY VETERINARIAN Yolande Lindsay MD PhD [facility]-92920 Level 3 Est. Patient 13:20:02 LABORATORY VETERINARIAN Yolande Lindsay MD [facility]-63937 Level 3 Est. Patient 15:00:38 CDT Jared Og MD [facility]-13545 Level 3 Est. Patient 10:22:32 CDT Yolande Lindsay MD [facility] CPT-04975 Level 3 Est. Patient 17:12:58 CDT Yolande Lindsay MD [facility]-68032 Level 4 Est. Patient 13:30:58 CDT Yolande Lindsay MD [facility] CPT-57938 Level 4 New Patient 09:02:42 CDT Jared Og MD [facility]-05996 Level 3 Est. Patient 08:19:07 CDT Yolande Lindsay MD [facility]-60865 Level 3 Est. Patient 12:00:13 LABORATORY VETERINARIAN Gab Padron MD [facility]-63955 Level 3 Est. Patient 16:15:23 LABORATORY VETERINARIAN Yolande Lindsay MD [facility]-13879 Level 2 Est. Patient 19:47:15 CDT Yolande Lindsay MD [facility] CPT-64613 Level 3 Est. Patient 21:38:31 CDT Yolande Lindsay MD [facility]-62723 Level 3 Est. Patient 10:25:12 CDT Adiel PERAZA [facility] CPT-92418 Level 4 Est. Patient 10:51:58 CDT Yolande Lindsay MD [facility]-69382 Level 3 Est. Patient 14:04:55 LABORATORY VETERINARIAN Rodrigo Sarah [facility] [place] CPT-81909 Level 3 Est. Patient 10:46:35 LABORATORY VETERINARIAN Rodrigo Sarah [facility]-40567 Level 3 Est. Patient 14:24:37 LABORATORY VETERINARIAN Yolande Lindsay MD [facility]-57076 Level 3 Est. Patient 17:41:58 LABORATORY VETERINARIAN Yolande Lindsay MD [facility] CPT-25733 Level 2 Est. Patient 22:01:41 LABORATORY VETERINARIAN Rodrigo Sarah [facility] [place] CPT-22367 Level 2 Est. Patient 22:01:11 LABORATORY VETERINARIAN Rodrigo Sarah [facility] [place] CPT-43701 Level 3 Est. Patient 10:12:29 LABORATORY VETERINARIAN Rodrigo Sarah [facility] [place] CPT-05615 Level 3 Est. Patient 11:05:44 CDT Alexis Ordaz MD [facility] CPT-91974 Level 3 Est. Patient 14:57:20 CDT Yolande Lindsay MD [facility]-92253 Level 3 Est. Patient 14:40:57 CDT Yolande Lindsay MD [facility]-94410 Level 3 Est. Patient 20:55:40 CDT Yolande Lindsay MD [facility] CPT-56586 Level 3 Est. Patient 12:42:38 LABORATORY VETERINARIAN Yolande Lindsay MD [facility]-49125 Level 3 Est. Patient 11:54:49 LABORATORY VETERINARIAN Des Hines MD [facility] CPT-33386 Level 3 Est. Patient 17:06:38 CDT Dewayne PERAZA [facility] Procedures Code Procedure Name Date Entry Date Standard Description CPT-J2930 Solu Medrol 125 mg (Methyl Prednisolone Sodium Succinate) 13:19:02 CDT CPT-05570 Abx/Therapy Injection 13:19:02 CDT CPT-J2930 Solu Medrol 125 mg (Methyl Prednisolone Sodium Succinate) 13:05:03 CDT CPT-67394 Hip, complete, 2-3 views - XRAY USE ONLY 17:19:04 LABORATORY VETERINARIAN CPT-78791 Venipuncture Draw Fee 08:37:59 LABORATORY VETERINARIAN CPT-56779 Liver Profile - LAB USE ONLY 08:37:59 LABORATORY VETERINARIAN CPT-47141 Lipid - LAB USE ONLY 08:37:58 LABORATORY VETERINARIAN CPT-41305 First Vx - Ix admin via ID IM or jet injects without counseling by physician 11:52:31 CDT CPT-21832 Fluzone Preservative Free Intramuscular Suspension 11:52 :31 CDT CPT-62157 Foot, left, comp min 3V - XRAY USE ONLY 09:24:54 CDT CPT-72990 Abd single AP View - XRAY USE ONLY 11:16:17 CDT CPT-89323 T spine AP/ Lat - XRAY USE ONLY 09:34:21 CDT CPT-39350 Chest 2V Frontal and Lat - XRAY USE ONLY 10:48:51 CDT CPT-07793 LS spine comp w obliq 13:28:00 LABORATORY VETERINARIAN CPT-J1040 Depo Medrol 80 mg (Methyl Prednisolone Acetate) 10:51: 28 LABORATORY VETERINARIAN CPT-J1100 Decadron 8mg (Dexamethasone) 10:51:28 LABORATORY VETERINARIAN CPT-90470 Abx/Therapy Injection 10:51:28 LABORATORY VETERINARIAN CPT-J1100 Decadron 8mg (Dexamethasone) 21:02:30 LABORATORY VETERINARIAN CPT-J1040 Depo Medrol 80 mg (Methyl Prednisolone Acetate) 21:02: 30 LABORATORY VETERINARIAN [id number] Event Monitor - MC Transmission 09:12:32 CDT 08/06 [id number] Event Monitor - MC review and interp 09:12:32 CDT [id number] Event Monitor - MC recording 09:12:32 CDT CPT-27331 EKG Trac and Interp 16:50:22 CDT CPT-J1030 Depo Medrol 40 mg (Methyl Prednisolone Acetate) 17:05: 54 CDT CPT-J1100 Decadron 4mg (Dexamethasone) 17:05:54 CDT CPT-41420 Abx/Therapy Injection 17:05:54 CDT CPT-J1100 Decadron 4mg (Dexamethasone) 16:55:28 CDT CPT-J1030 Depo Medrol 40 mg (Methyl Prednisolone Acetate) 16:55: 28 CDT CPT-99965 Ankle Complete - Min 3V 15:58:50 CDT CPT-79692 Knee 3V 15:58:50 CDT CPT-27981 Hip comp min 2V 15:58:50 CDT CPT-J2270 Morphine Sulfate 10 mg 14:25:44 LABORATORY VETERINARIAN CPT-J2550 Phenergan 12.5 mg (Promethazine) 14:25:44 LABORATORY VETERINARIAN CPT-18786 Abx/Therapy Injection 14:25:44 [facility] CPT-J2550 Phenergan 12.5 mg (Promethazine) 14:08:03 [facility] CPT-J2270 Morphine Sulfate 10 mg 14:08:03 [facility] CPT-79676 Bladder Scan 15:00:38 CDT CPT-TCMM Transitional Care Mgmt-Moderate 09:52:22 CDT CPT-J1030 Depo Medrol 40 mg (Methyl Prednisolone Acetate) 10:55: 18 CDT CPT-J1100 Decadron 4mg (Dexamethasone) 10:55:18 CDT CPT-84979 Abx/Therapy Injection 10:55:18 CDT CPT-J1030 Depo Medrol 40 mg (Methyl Prednisolone Acetate) 10:22: 32 CDT CPT-J1100 Decadron 4mg (Dexamethasone) 10:22:32 CDT CPT-72248 Postop F/U Visit 14:37:13 CDT CPT-71201 Ankle Complete - Min 3V 17:11:58 CDT CPT-07239 Foot comp min 3V 17:11:58 CDT CPT-48892 Bladder Scan 09:56:58 CDT CPT-54002 Postop F/U Visit 09:56:58 CDT CPT-37409 Cystoscopy 09:02:42 CDT CPT-87761 Bladder Scan 09:02:42 CDT CPT-19053 Abd single AP View 16:00:35 CDT CPT-09813 Administration single or combination vaccine inc oral 10 :15:43 CDT CPT-48370 Influenza split virus > age 3 10:15:43 CDT CPT-46934 Nail Avulsion 09:24:57 CDT CPT-OV Office Visit 11:15:41 CDT CPT-15486 Abx/Therapy Injection 10:51:30 CDT CPT-J3301 Kenalog 40 mg (Triamcinolone Acetonide) 10:25:12 CDT CPT-J1100 Decadron 4mg (Dexamethasone) 10:25:12 CDT CPT-20235 Anoscopy diagnostic 10:36:12 CDT CPT-OV Office Visit 15:34:31 CDT CPT-14864 Abx/Therapy Injection 08:21:15 [facility] CPT-J1885 Toradol 60 mg (Ketorolac) 10:46:35 [facility] CPT-OV Office Visit 19:51:16 [facility] CPT-26892 Spec Collection and Handling Fee 14:34:18 [facility] CPT-PV Prev. Care Visit 14:19:18 [facility] CPT-98832 Postop F/U Visit 14:47:51 [facility] CPT-34677 Postop F/U Visit 15:15:14 [facility] CPT-03680 Postop F/U Visit 14:41:43 CDT CPT-19408 Postop F/U Visit 15:47:46 CDT CPT-OV Office Visit 15:27:23 CDT CPT-OV Office Visit 17:20:34 CDT CPT-87593 Abx/Therapy Injection 15:05:57 CDT CPT-J1100 Decadron 8mg (Dexamethasone) 14:44:57 CDT CPT-J1040 Depo Medrol 80 mg (Methyl Prednisolone Acetate) 14:44: 57 CDT CPT-JTINJ Joint Injection 10:17:37 CDT CPT-99012 Administration 2+ single or combination vaccines inc oral 13:01:46 [facility] CPT-06241 Administration single or combination vaccine inc oral 13 :01:46 [facility] CPT-97832 Pneumovax 13:01:46 [facility] CPT-89598 Influenza split virus > age 3 13:01:46 [facility] CPT-37513 Administration single or combination vaccine inc oral 08 :56:49 CDT CPT-54060 Tdap 08:56:49 CDT
--- OUTSIDE RECORDS SUMMARY | 2017-03-22 01:06 | XMS REPORT | Clinical Summary ---
Author Author Admin, MARGRET Organization [employer] Address Unknown Phone Unavailable Allergies, Adverse Reactions, Alerts Allergy Name Reaction Description Start Date Severity Status Provider VALENTIN Critical Active Rodrigo Montemayorl [employer]CIAL [employer]LL[employer]STRATOR CHLORHEXIDINE GLUCONATE tongue and gums swollen Critical Active [facility] NORFLEX Rash Critical Active Silvestrellina Frazell COMMERCIAL ILLUSTRATOR TRAZODONE HCL sees things Critical Active Dewayne [...] infarction, hx of 412 Active [facility] Old myocardial infarction Pelvic pain 789.09 Active Yolande Lindsay MD PhD Abdominal pain, other specified site; multiple sites Edema 782.3 Active Yolande Lindsay MD PhD Edema Rash 782.1 Active Yolande Lindsay MD PhD Rash and other nonspecific skin eruption Back pain, lumbar 724.2 Active Gab Padron MD Lumbago Cough 786.2 Active Jillina Tyrel [employer] ILLUSTRATOR Cough 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 Jillina Frazellilian COMMERCIAL ILLUSTRATOR 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 Anemia 285.9 Active Gab Padron MD Anemia, unspecified Conjunctivitis 372.30 Active Jillina Tyrel COMMERCIAL ILLUSTRATOR Conjunctivitis, unspecified Sinusitis 473.9 Active Jillina Frazell COMMERCIAL ILLUSTRATOR Unspecified sinusitis (chronic) Nonspecific syndrome suggestive of viral illness 079.99 Active Rodrigo Sarah APRN Unspecified viral infection Laryngitis 464.00 Active Jillina Tyrel COMMERCIAL ILLUSTRATOR Acute laryngitis without mention of obstruction Abdominal [...] every 6 hrs prn pain TRAMADOL HCL 05265133419 Active Gab Padron MD Active PREDNISONE 20 MG TAB 2 tabs daily for 3 days, 1 tab daily for 3 days, 1/2 tab daily for 2 days PREDNISONE 10334378938 No Longer Active Gab Padron MD Active ZOFRAN ODT 4 MG TBDP 1 po q6hr PRN Nausea ONDANSETRON 58618389775 Active Gab Padron MD Active IBUPROFEN 600 MG TAB 1 tablet by mouth every 6 hours for 7 days, then 1 tablet every 6 hours as needed. Take with food IBUPROFEN 33818604281 Active Jillina Frazell COMMERCIAL ILLUSTRATOR Active BACTRIM DS 800-160 MG TAB 1 tab by mouth twice daily TRIMETHOPRIM-SULFAMETHOXAZOLE 01374378907 No Longer Active Gab Padron MD Active ADVAIR DISKUS 250-50 MCG/DOSE AEPB 1 puff BID FLUTICASONE- SALMETEROL 49134144011 Active Silvestrellnacho Sarah APRN Active LEVOTHYROXINE SODIUM 75 MCG TABS Take 1 tab daily LEVOTHYROXINE SODIUM 51437594607 No Longer Active Mariana Cuadra [facility] Active SYNTHROID 88 MCG ORAL TABS Take one by mouth daily LEVOTHYROXINE SODIUM 83217010979 Active Gab Padron MD Active CHERATUSSIN AC 100-10 MG/5ML SYRP 1 tsp by mouth every 4 hours as needed for cough GUAIFENESIN-CODEINE 34820816789 No Longer Active Gab Padron MD Active POLYTRIM 52726-9.1 UNIT/ML-% SOLN 1 gtt to affected eye q3h x 7 days POLYMYXIN B-TRIMETHOPRIM 27865834589 No Longer Active Gab Padron MD Active FLUTICASONE PROPIONATE 50 MCG/ACT SUSP 1 to 2 sprays each nostril daily 04/21 FLUTICASONE PROPIONATE 47581721046 No Longer Active Gab Padron MD Active TRILEPTAL 600 MG TABS Take one 1 tablet in Am and 1 tablet at night OXCARBAZEPINE 94149300715 Active Gab Padron MD Active CEFDINIR 300 MG CAPS 1 po BID x 10 days CEFDINIR 31426373414 No Longer Active Rodrigo Sarah APRN Active CEFTIN 500 MG TAB 1 twice a day CEFUROXIME AXETIL 71580933548 No Longer Active Gab Padron MD Active AZITHROMYCIN 250 MG TABS 2 po qd x 1 day, then 1 po qd x 4 days AZITHROMYCIN 58687673703 No Longer Active Rodrigo Sarah APRN Active CLARITIN 10 MG TAB 1 tablet by mouth daily as needed for allergies LORATADINE 97574725588 Active Rodrigo Sarah APRN Active OXYCODONE HCL 5 MG ORAL CAPS 1 TAB PO Q HS OXYCODONE HCL 49027505369 No Longer Active Rodrigo Sarah APRN Active NIASPAN 500 MG ORAL CR-TABS 1 pill nightly x 1 week, then 2 pills nightly x 1 week, then 3 pills nightly x 1 week, then 4 pills nightly NIACIN (ANTIHYPERLIPIDEMIC) 61342954118 No Longer Active Rodrgio Sarah APRN Active NIACIN 500 MG TABS 1 pill by mouth nightly x 1 week, then 2 pills x 1 week, then 3 pills x 1 week, then 4 pills nightly - take after evening meal, with applesauce or an apple NIACIN 02164808867 No Longer Active Yolande Lindsay MD PhD Active FISH OIL 1000 MG CAPS 3 pills daily OMEGA-3 FATTY ACIDS 36373118664 Active Yolande Lindsay MD PhD Active TRIAMCINOLONE ACETONIDE 0.1 % CREA apply bid sparingly to rash TRIAMCINOLONE ACETONIDE 09354297335 Active Yolande Lindsay MD PhD Active FUROSEMIDE 20 MG TAB 1 tablet by mouth daily FUROSEMIDE 57978576093 Active Tisha Lambert APRN Active LISINOPRIL 20 MG ORAL TABS 1 tab by mouth daily LISINOPRIL 67480670631 Active Tisha Lambert APRN Active FUROSEMIDE 20 MG TABS 1 pill by mouth daily, for edema FUROSEMIDE 02815716550 No Longer Active Yolande Lindsay MD PhD Active ATORVASTATIN CALCIUM 10 MG TABS 1 pill by mouth daily, for cholesterol 09/06 ATORVASTATIN CALCIUM 65325100974 Active Gab Padron MD Active CALCIUM 600+D PLUS MINERALS 600-400 MG-UNIT ORAL CHEW 1 tab by mouth daily CALCIUM CARBONATE-VIT D-MIN 26667061697 No Longer Active Yolande Lindsay MD PhD Active CYCLOBENZAPRINE HCL 10 MG TABS 1 tablet by mouth three times daily as needed for muscle spasm/pain CYCLOBENZAPRINE HCL 59850369222 Active Yolande Lindsay MD PhD Active ONDANSETRON 4 MG TBDP 1 q4h PRN nausea ONDANSETRON 22006956683 Active Yolande Lindsay MD PhD Active ADULT ASPIRIN EC LOW STRENGTH 81 MG TBEC Take 1 tablet by mouth daily 2014 ASPIRIN 22827407580 No Longer Active Yolande Lindsay MD PhD Active ZOFRAN ODT 4 MG TBDP 1 pill dissolved by mouth every 4 hours if needed for nausea ONDANSETRON 88387826637 No Longer Active Yolande Lindsay MD PhD Active CEFTIN 500 MG TAB 1 twice a day CEFUROXIME AXETIL 20238897309 No Longer Active Yolande Lindsay MD PhD Active ALBUTEROL SULFATE 0.083 % NEBU SOLN one vial per nebulizer every 4-6 hours as needed ALBUTEROL SULFATE 75300674905 No Longer Active Alexis Ordaz MD Active DOXYCYCLINE HYCLATE 100 MG CAP 1 cap by mouth twice daily DOXYCYCLINE HYCLATE 52554728271 No Longer Active Yolande Lindsay MD PhD Active CYCLOBENZAPRINE HCL 10 MG TABS 1/2 - 1 tab by mouth three times daily if needed for spasms/pain CYCLOBENZAPRINE HCL 07200633845 No Longer Active Yolande Lindsay MD PhD Active AZITHROMYCIN 250 MG TABS 2 pills on day 1, then 1 pill daily x 4 days AZITHROMYCIN 68656717563 No Longer Active Yolande Lindsay MD PhD Active XOPENEX 1.25 MG/3ML NEBU 1 neb every 4 hours if needed for cough/congestion LEVALBUTEROL HCL 76749019593 No Longer Active Yolaned Lindsay MD PhD Active DOXYCYCLINE HYCLATE 100 MG TAB 1 tab twice a day for 14 days 2013 DOXYCYCLINE HYCLATE 75828168421 No Longer Active Yolande Lindsay MD PhD Active PREVACID 30 MG CPDR Take 1 tablet by mouth daily-PRN LANSOPRAZOLE 40544712017 No Longer Active Yolande Lindsay MD PhD Active PA VITAMIN D-3 2000 UNIT CAPS 1 CAP PO DAILY CHOLECALCIFEROL 66310680471 No Longer Active Yolande Lindsay MD PhD Active CEFDINIR 300 MG CAPS by mouth twice a day CEFDINIR 92102702094 No Longer Active Gab Padron MD Active TOPAMAX 50 MG TABS 1 PO twice daily TOPIRAMATE 30499957698 Active Yolande Lindsay MD PhD Active AZITHROMYCIN 250 MG TABS 2 po qd x 1 day, then 1 po qd x 4 days AZITHROMYCIN 68229294493 No Longer Active Yolande Lindsay MD PhD Active DICLOFENAC SODIUM 75 MG TBEC 1 tablet by q 12 hours PRN headaches DICLOFENAC SODIUM 56771867545 No Longer Active Yolande Lindsay MD PhD Active FLONASE 50 MCG/ACT SUSP 1 spray each nostril am and hs FLUTICASONE PROPIONATE 45916999954 No Longer Active Todd Callaway MD Active ANUSOL-HC 25 MG SUPPOSITORY 1 rectally twice a day as needed for hemorrhoids HYDROCORTISONE JAYDEN (RECTAL) 95383304092 No Longer Active Yolande Lindsay MD PhD Active ANUSOL-HC 25 MG SUPPOSITORY 1 suppository rectally each evening as needed for anal fissure HYDROCORTISONE JAYDEN (RECTAL) 49661328671 No Longer Active [place] Active VALIUM 5 MG TAB 1 po 30 minutes prior to your MRI DIAZEPAM 54462051520 No Longer Active Bozena LONNIE Coleman Active METHOCARBAMOL 750 MG TABS 1 PO QID PRN METHOCARBAMOL 81020485335 No Longer Active Daphne Wetzel COMMERCIAL ILLUSTRATOR Active NITROSTAT 0.4 MG SUBL as directed NITROGLYCERIN 50147945674 No Longer Active Rodrigo Sarah COMMERCIAL ILLUSTRATOR Active ROBAXIN-750 750 MG TABS 2 four times a day for 3 days as needed for muscle spasm, then 1 four times a day as needed METHOCARBAMOL 45489385269 No Longer Active Rodrigo Sarah APRN Active HYDROCODONE-ACETAMINOPHEN 5-325 MG TABS 1 q 4-6 hrs prn HYDROCODONE-ACETAMINOPHEN 68033401731 No Longer Active Rodrigo Sarah APRN Active VERAPAMIL HCL CR 180 MG CR-TABS TAKE 1 TAB DAILY VERAPAMIL HCL 60576013502 No Longer Active Yolande Lindsay MD PhD Active BACTRIM DS 800-160 MG TAB 1 tab by mouth twice daily TRIMETHOPRIM-SULFAMETHOXAZOLE 12418856626 No Longer Active Yolande Lindsay MD PhD Active NEXIUM 40 MG PACK 1 by mouth daily ESOMEPRAZOLE MAGNESIUM 46819680120 No Longer Active Des Hines MD Active EPIPEN 2-CHARLETTE 0.3 MG/0.3ML OMARI as need for allergic reaction EPINEPHRINE 70751591821 Active Yolande Lindsay MD PhD Active NEXIUM 40 MG CPDR 1 PO Q D DAY ESOMEPRAZOLE MAGNESIUM 73619913701 No Longer Active Sadia Perry RN Active NEXIUM 40 MG PACK 1 by mouth daily NEXIUM 40 MG PACK ESOMEPRAZOLE MAGNESIUM Inactive VERAPAMIL HCL CR 180 MG CR-TABS TAKE 1 TAB DAILY VERAPAMIL HCL CR 180 MG CR-TABS VERAPAMIL HCL Inactive HYDROCODONE-ACETAMINOPHEN 5-325 MG TABS 1 q 4-6 hrs prn HYDROCODONE-ACETAMINOPHEN 5-325 MG TABS 850695 HYDROCODONE-ACETAMINOPHEN Inactive ROBAXIN-750 750 MG TABS 2 four times a day for 3 days as needed for muscle spasm, then 1 four times a day as needed ROBAXIN-750 750 MG TABS 886321 METHOCARBAMOL Inactive NITROSTAT 0.4 MG SUBL as directed NITROSTAT 0.4 MG SUBL 937113 NITROGLYCERIN Inactive METHOCARBAMOL 750 MG TABS 1 PO QID PRN METHOCARBAMOL 750 MG TABS 559106 METHOCARBAMOL Inactive VALIUM 5 MG TAB 1 po 30 minutes prior to your MRI VALIUM 5 MG TAB 858360 DIAZEPAM Inactive ANUSOL-HC 25 MG SUPPOSITORY 1 suppository rectally each evening as needed for anal fissure ANUSOL-HC 25 MG SUPPOSITORY 3648495 HYDROCORTISONE JAYDEN (RECTAL) Inactive ANUSOL-HC 25 MG SUPPOSITORY 1 rectally twice a day as needed for hemorrhoids ANUSOL-HC 25 MG SUPPOSITORY 1387616 HYDROCORTISONE JAYDEN (RECTAL) Inactive FLONASE 50 MCG/ACT SUSP 1 spray each nostril am and hs FLONASE 50 MCG/ACT SUSP FLUTICASONE PROPIONATE Inactive DICLOFENAC SODIUM 75 MG TBEC 1 tablet by q 12 hours PRN headaches DICLOFENAC SODIUM 75 MG TBEC 953417 DICLOFENAC SODIUM Inactive PA VITAMIN D-3 2000 UNIT CAPS 1 CAP PO DAILY PA VITAMIN D-3 2000 UNIT CAPS CHOLECALCIFEROL Inactive PREVACID 30 MG CPDR Take 1 tablet by mouth daily-PRN PREVACID 30 MG CPDR 551236 LANSOPRAZOLE Inactive DOXYCYCLINE HYCLATE 100 MG TAB 1 tab twice a day for 14 days 2013 DOXYCYCLINE HYCLATE 100 MG TAB 5930013 DOXYCYCLINE HYCLATE Inactive XOPENEX 1.25 MG/3ML NEBU 1 neb every 4 hours if needed for cough/congestion XOPENEX 1.25 MG/3ML NEBU 362631 LEVALBUTEROL HCL Inactive CYCLOBENZAPRINE HCL 10 MG TABS 1/2 - 1 tab by mouth three times daily if needed for spasms/pain CYCLOBENZAPRINE HCL 10 MG TABS 469969 CYCLOBENZAPRINE HCL Inactive ALBUTEROL SULFATE 0.083 % NEBU SOLN one vial per nebulizer every 4-6 hours as needed ALBUTEROL SULFATE 0.083 % NEBU SOLN 029051 ALBUTEROL SULFATE Inactive CEFTIN 500 MG TAB 1 twice a day CEFTIN 500 MG TAB 036640 CEFUROXIME AXETIL Inactive ZOFRAN ODT 4 MG TBDP 1 pill dissolved by mouth every 4 hours if needed for nausea ZOFRAN ODT 4 MG TBDP 704146 ONDANSETRON Inactive ADULT ASPIRIN EC LOW STRENGTH 81 MG TBEC Take 1 tablet by mouth daily 2014 ADULT ASPIRIN EC LOW STRENGTH 81 MG TBEC 504743 ASPIRIN Inactive CALCIUM 600+D PLUS MINERALS 600-400 [...] or an apple NIACIN 500 MG TABS 179204 NIACIN Inactive NIASPAN 500 MG ORAL CR-TABS 1 pill nightly x 1 week, then 2 pills nightly x 1 week, then 3 pills nightly x 1 week, then 4 pills nightly NIASPAN 500 MG ORAL CR-TABS NIACIN (ANTIHYPERLIPIDEMIC) Inactive OXYCODONE HCL 5 MG ORAL CAPS 1 TAB PO Q HS OXYCODONE HCL 5 MG ORAL CAPS 7442071 OXYCODONE HCL Inactive FLUTICASONE PROPIONATE 50 MCG/ACT SUSP 1 to 2 sprays each nostril daily 04/21 FLUTICASONE PROPIONATE 50 MCG/ACT SUSP 0280119 FLUTICASONE PROPIONATE Inactive POLYTRIM 83706-1.1 UNIT/ML-% SOLN 1 gtt to affected eye q3h x 7 days POLYTRIM 06382-6.1 UNIT/ML-% SOLN 298977 POLYMYXIN B- TRIMETHOPRIM Inactive CHERATUSSIN AC 100-10 MG/5ML SYRP 1 tsp by mouth every 4 hours as needed for cough CHERATUSSIN AC 100-10 MG/5ML SYRP 988705 GUAIFENESIN-CODEINE Inactive LEVOTHYROXINE SODIUM 75 MCG TABS Take 1 tab daily LEVOTHYROXINE SODIUM 75 MCG TABS 239482 LEVOTHYROXINE SODIUM Inactive BACTRIM DS 800-160 MG TAB 1 tab by mouth twice daily BACTRIM DS 800-160 MG TAB 197363 TRIMETHOPRIM-SULFAMETHOXAZOLE Inactive AZITHROMYCIN 250 MG TABS 2 po qd x 1 day, then 1 po qd x 4 days AZITHROMYCIN 250 MG TABS 7320485 AZITHROMYCIN Inactive CEFDINIR 300 MG CAPS by mouth twice a day CEFDINIR 300 MG CAPS 358769 CEFDINIR Inactive AZITHROMYCIN 250 MG TABS 2 pills on day 1, then 1 pill daily x 4 days AZITHROMYCIN 250 MG TABS 7236172 AZITHROMYCIN Inactive DOXYCYCLINE HYCLATE 100 MG CAP 1 cap by mouth twice daily DOXYCYCLINE HYCLATE 100 MG CAP 4298661 DOXYCYCLINE HYCLATE Inactive FUROSEMIDE 20 MG TABS 1 pill by mouth daily, for edema FUROSEMIDE 20 MG TABS 949017 FUROSEMIDE Inactive AZITHROMYCIN 250 MG TABS 2 po qd x 1 day, then 1 po qd x 4 days AZITHROMYCIN 250 MG TABS 6749090 AZITHROMYCIN Inactive CEFTIN 500 MG TAB 1 twice a day CEFTIN 500 MG TAB 548170 CEFUROXIME AXETIL Inactive CEFDINIR 300 MG CAPS 1 po BID x 10 days CEFDINIR 300 MG CAPS 542614 CEFDINIR Inactive BACTRIM DS 800-160 MG TAB 1 tab by mouth twice daily BACTRIM DS 800-160 MG TAB 353720 TRIMETHOPRIM-SULFAMETHOXAZOLE Inactive PREDNISONE 20 MG TAB 2 tabs daily for 3 days, 1 tab daily for 3 days, 1/2 tab daily for 2 days PREDNISONE 20 MG TAB 069126 PREDNISONE Inactive Immunizations Vaccine Administration Date Value Standard Description Seasonal influenza vaccine, injectable, containing preservative, for > 3 years old (Afluria, FluLaval, Fluzone, Fluvirin, Fluarix, Agriflu(>=18 yo)) Fluzone (>3 yrs.) [XLV574] Influenza, seasonal, injectable influenza immunization (Flu Vax) has been administered Influenza - Unspecified Formulation [CVX88] influenza virus vaccine, unspecified formulation Seasonal influenza vaccine, injectable, containing preservative, for > 3 years old (Afluria, FluLaval, Fluzone, Fluvirin, Fluarix, Agriflu(>=18 yo)) Fluzone (>3 yrs.) [JQU499] Influenza, seasonal, injectable pneumococcal immunization administered Pneumovax 23 [CVX33] pneumococcal polysaccharide vaccine, 23 valent dT (Diphtheria and Tetanus) booster given given Td(adult) unspecified formulation Boostrix (Tetanus toxoid, reduced diphtheria toxoid and acellular pertussis vaccine, adsorbed), booster Boostrix [QRY700] tetanus toxoid, reduced diphtheria toxoid, and acellular [...] Panel - Chemistry sodium, serum 142 mmol/L 029-324 4764/06/30 potassium, serum 4.4 mmol/L 3.5-5.2 chloride, serum [...] Rate - Chemistry sodium, serum 139 mmol/L 169-824 9827/03/24 carbon dioxide, venous blood 22.4 mmol/L 21.0-32.0 [...] ... - Chemistry sodium, serum 143 mmol/L 448-080 1369/05/02 carbon dioxide, venous blood 25.6 mmol/L 21.0-32.0 [...] PANEL - Chemistry cholesterol, serum 166 mg/dL 020-189 6353/12/06 triglyceride, serum, fasting 86 mg/dL 30-200 HDL [...] Negative mg/dL Negative sodium, serum 142 mmol/L 401-884 8954/07/18 carbon dioxide, venous blood 27.8 mmol/L 21.0-32.0 [...] negative Encounters Code Encounter Date Provider Facility CPT-83649 Level 3 Est. Patient 17:43:55 [employer] Gab Padron MD [facility] CPT-99716 Level 3 Est. Patient 17:07:49 [employer] Jared Og MD [facility] CPT-28418 Level 4 Est. Patient 19:55:18 [employer]AT[employer] Jared Og MD [facility] CPT-31812 Level 3 Est. Patient 20:13:34 LAB[employer]AT[employer] Jared Og MD [facility] CPT-90745 Level 4 Est. Patient 16:31:27 CDT Gab Padron MD [facility] CPT-96033 Level 2 Est. Patient 12:23:38 CDT Jared Og MD [facility] CPT-50025 Level 3 Est. Patient 11:01:51 CDT Gab Padron MD [facility] CPT-15160 Level 3 Est. Patient 15:27:02 CDT Jared Og MD [facility] [place] CPT-16226 Level 4 Est. Patient 09:25:27 CDT Gab Padron MD [facility] CPT-37893 Level 3 Est. Patient 10:29:41 CDT Rodrigo Sarah [facility] CPT-00275 Level 4 Est. Patient 17:51:05 CDT Gab Padron MD [facility] CPT-50296 Level 3 Est. Patient 14:18:08 CDT Gab Padron MD [facility] CPT-69222 Level 4 Est. Patient 10:18:54 CDT Gab Padron MD [facility] CPT-91294 Level 3 Est. Patient 11:30:07 CDT Rodrigo Sarah [facility] CPT-40410 Level 4 Est. Patient 21:02:30 LAB[employer]ATORY [employer] Gab Padron MD [facility] CPT-54982 Level 3 Est. Patient 11:02:19 LAB[employer]ATORY [employer] Gab Padron MD [facility]-47513 Level 4 Est. Patient 22:24:31 LAB[employer]ATORY [employer] Gab Padron MD [facility]-53185 Level 3 Est. Patient 18:33:46 LAB[employer]AT[employer] Gab Padron MD [facility]-20227 Level 3 Est. Patient 16:19:11 CDT Yolande Lindsay MD [facility][note 3]-72731 Level 3 Est. Patient 18:59:14 CDT Yolande Lindsay MD [facility][note 3]-86563 Level 4 Est. Patient 21:29:26 CDT Yolande Lindsay MD [facility]-40666 Level 3 Est. Patient 07:37:45 CDT Yolande Lindsay MD [facility]-48799 Level 3 Est. Patient 17:03:46 CDT Yolande Lindsay MD [facility]-09418 Level 4 Est. Patient 20:02:13 LAB[employer] Yolande Lindsay MD [facility][note 3]-03754 Level 3 Est. Patient 16:02:07 [employer] Alexis Ordaz MD [facility]-75711 Level 3 Est. Patient 12:41:24 [employer] Yolande Lindsay MD [facility][note 3]-45389 Level 3 Est. Patient 15:41:20 LAB[employer]AT[employer] Yolande Lindsay MD [facility][note 3]-07221 Level 3 Est. Patient 13:20:02 [employer] Yolande Lindsay MD [facility][note 3]-55927 Level 3 Est. Patient 15:00:38 CDT Jared Og MD [facility]-98611 Level 3 Est. Patient 10:22:32 CDT Yolande Lindsay MD [facility] CPT-24566 Level 3 Est. Patient 17:12:58 CDT Yolande Lindsay MD [facility][note 3]-45801 Level 4 Est. Patient 13:30:58 CDT Yolande Lindsay MD [facility][note 3]-66200 Level 4 New Patient 09:02:42 CDT Jared Og MD [facility]-39146 Level 3 Est. Patient 08:19:07 CDT Yolande Lindsay MD [facility] CPT-72628 Level 3 Est. Patient 12:00:13 [employer] Gab Padron MD [facility]-41859 Level 3 Est. Patient 16:15:23 [employer]AT[employer] Yolande Lindsay MD [facility][note 3]-36160 Level 2 Est. Patient 19:47:15 CDT Yolande Lindsay MD [facility] CPT-15702 Level 3 Est. Patient 21:38:31 CDT Yolande Lindsay MD [facility][note 3]-98294 Level 3 Est. Patient 10:25:12 CDT Adiel PERAZA [facility] CPT-68480 Level 4 Est. Patient 10:51:58 CDT Yolande Lindsay MD [facility] CPT-90146 Level 3 Est. Patient 14:04:55 [employer] Rodrigo Sarah [facility] CPT-92663 Level 3 Est. Patient 10:46:35 [employer] Rodrigo Sarah [facility] CPT-64500 Level 3 Est. Patient 14:24:37 [employer] Yolande Lindsay MD [facility][note 3]-02857 Level 3 Est. Patient 17:41:58 [employer] Yolande Lindsay MD [facility][note 3]-33215 Level 2 Est. Patient 22:01:41 [employer] Silvestrebernabe Sarah [facility] CPT-84639 Level 2 Est. Patient 22:01:11 [employer]AT[employer] Silvestrebernabe Sarah [facility] CPT-02987 Level 3 Est. Patient 10:12:29 [employer] Rodrigo Sarah [facility] CPT-55608 Level 3 Est. Patient 11:05:44 CDT Alexis Ordaz MD [facility] CPT-36064 Level 3 Est. Patient 14:57:20 CDT Yolande Lindsay MD [facility] CPT-97364 Level 3 Est. Patient 14:40:57 CDT Yolande Lindsay MD [facility] CPT-80068 Level 3 Est. Patient 20:55:40 CDT Yolande Lindsay MD [facility] CPT-71704 Level 3 Est. Patient 12:42:38 [employer] Yolande Lindsay MD [facility] CPT-62916 Level 3 Est. Patient 11:54:49 [employer] Des Hines MD [facility] CPT-63389 Level 3 Est. Patient 17:06:38 CDT Dewayne PERAZA [facility] Procedures Code Procedure Name Date Entry Date Standard Description CPT-43195 Hip, complete, 2-3 views - XRAY USE ONLY 17:19:04 [employer] CPT-26815 Venipuncture Draw Fee 08:37:59 [employer] CPT-15535 Liver Profile - LAB USE ONLY 08:37:59 [employer] CPT-41747 Lipid - LAB USE ONLY 08:37:58 [employer] CPT-50827 First Vx - Ix admin via ID IM or jet injects without counseling by physician 11:52:31 CDT CPT-73333 Fluzone Preservative Free Intramuscular Suspension 11:52 :31 CDT CPT-86165 Foot, left, comp min 3V - XRAY USE ONLY 09:24:54 CDT CPT-06309 Abd single AP View - XRAY USE ONLY 11:16:17 CDT CPT-85877 T spine AP/ Lat - XRAY USE ONLY 09:34:21 CDT CPT-57438 Chest 2V Frontal and Lat - XRAY USE ONLY 10:48:51 CDT CPT-67154 LS spine comp w obliq 13:28:00 [employer] CPT-J1040 Depo Medrol 80 mg (Methyl Prednisolone Acetate) 10:51: 28 [employer] CPT-J1100 Decadron 8mg (Dexamethasone) 10:51:28 [employer] CPT-97994 Abx/Therapy Injection 10:51:28 [employer] CPT-J1100 Decadron 8mg (Dexamethasone) 21:02:30 [employer] CPT-J1040 Depo Medrol 80 mg (Methyl Prednisolone Acetate) 21:02: 30 [employer] [id number] Event Monitor - MC Transmission 09:12:32 CDT 08/06 [id number] Event Monitor - MC review and interp 09:12:32 CDT [id number] Event Monitor - MC recording 09:12:32 CDT CPT-83115 EKG Trac and Interp 16:50:22 CDT CPT-J1030 Depo Medrol 40 mg (Methyl Prednisolone Acetate) 17:05: 54 CDT CPT-J1100 Decadron 4mg (Dexamethasone) 17:05:54 CDT CPT-86054 Abx/Therapy Injection 17:05:54 CDT CPT-J1100 Decadron 4mg (Dexamethasone) 16:55:28 CDT CPT-J1030 Depo Medrol 40 mg (Methyl Prednisolone Acetate) 16:55: 28 CDT CPT-43302 Ankle Complete - Min 3V 15:58:50 CDT CPT-22760 Knee 3V 15:58:50 CDT CPT-24113 Hip comp min 2V 15:58:50 CDT CPT-J2270 Morphine Sulfate 10 mg 14:25:44 [employer] CPT-J2550 Phenergan 12.5 mg (Promethazine) 14:25:44 [employer] CPT-27416 Abx/Therapy Injection 14:25:44 [employer] CPT-J2550 Phenergan 12.5 mg (Promethazine) 14:08:03 [employer] CPT-J2270 Morphine Sulfate 10 mg 14:08:03 [employer] CPT-40903 Bladder Scan 15:00:38 CDT CPT-TCMM Transitional Care Mgmt-Moderate 09:52:22 CDT CPT-J1030 Depo Medrol 40 mg (Methyl Prednisolone Acetate) 10:55: 18 CDT CPT-J1100 Decadron 4mg (Dexamethasone) 10:55:18 CDT CPT-53552 Abx/Therapy Injection 10:55:18 CDT CPT-J1030 Depo Medrol 40 mg (Methyl Prednisolone Acetate) 10:22: 32 CDT CPT-J1100 Decadron 4mg (Dexamethasone) 10:22:32 CDT CPT-91322 Postop F/U Visit 14:37:13 CDT CPT-59592 Ankle Complete - Min 3V 17:11:58 CDT CPT-26618 Foot comp min 3V 17:11:58 CDT CPT-73671 Bladder Scan 09:56:58 CDT CPT-61278 Postop F/U Visit 09:56:58 CDT CPT-27229 Cystoscopy 09:02:42 CDT CPT-73300 Bladder Scan 09:02:42 CDT CPT-66557 Abd single AP View 16:00:35 CDT CPT-64153 Administration single or combination vaccine inc oral 10 :15:43 CDT CPT-02031 Influenza split virus > age 3 10:15:43 CDT CPT-14571 Nail Avulsion 09:24:57 CDT CPT-OV Office Visit 11:15:41 CDT CPT-54788 Abx/Therapy Injection 10:51:30 CDT CPT-J3301 Kenalog 40 mg (Triamcinolone Acetonide) 10:25:12 CDT CPT-J1100 Decadron 4mg (Dexamethasone) 10:25:12 CDT CPT-59501 Anoscopy diagnostic 10:36:12 CDT CPT-OV Office Visit 15:34:31 CDT CPT-34550 Abx/Therapy Injection 08:21:15 [facility] CPT-J1885 Toradol 60 mg (Ketorolac) 10:46:35 [facility] CPT-OV Office Visit 19:51:16 [facility] CPT-51913 Spec Collection and Handling Fee 14:34:18 [facility] CPT-PV Prev. Care Visit 14:19:18 [facility] CPT-33446 Postop F/U Visit 14:47:51 [facility] CPT-24563 Postop F/U Visit 15:15:14 [facility] CPT-23210 Postop F/U Visit 14:41:43 CDT CPT-60382 Postop F/U Visit 15:47:46 CDT CPT-OV Office Visit 15:27:23 CDT CPT-OV Office Visit 17:20:34 CDT CPT-94217 Abx/Therapy Injection 15:05:57 CDT CPT-J1100 Decadron 8mg (Dexamethasone) 14:44:57 CDT CPT-J1040 Depo Medrol 80 mg (Methyl Prednisolone Acetate) 14:44: 57 CDT CPT-JTINJ Joint Injection 10:17:37 CDT CPT-01538 Administration 2+ single or combination vaccines inc oral 13:01:46 [facility] CPT-42164 Administration single or combination vaccine inc oral 13 :01:46 [facility] CPT-50178 Pneumovax 13:01:46 [facility] CPT-68292 Influenza split virus > age 3 13:01:46 [facility] CPT-63953 Administration single or combination vaccine inc oral 08 :56:49 CDT [facility]-20499 Tdap 08:56:49 CDT
--- OUTSIDE RECORDS SUMMARY | 2017-03-22 01:06 | XMS REPORT ---
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
--- OUTSIDE RECORDS SUMMARY | 2017-03-22 01:08 | XMS REPORT | Clinical Summary ---
Author Author Admin, MARGRET Organization [place] Address Unknown Phone Unavailable Allergies, Adverse Reactions, Alerts Allergy Name Reaction Description Start Date Severity Status Provider VALENTIN Critical Active Rodrigo Montemayorl LENS POLISHER CHLORHEXIDINE GLUCONATE tongue and gums swollen Critical Active Hoa Kabaford RMA NORFLEX Rash Critical Active Silvestrellina Frazell LENS POLISHER TRAZODONE HCL sees things Critical Active [...] of 412 Active Hoa Otto [facility] Old myocardial infarction Pelvic pain 789.09 Active Yolande Lindsay MD PhD Abdominal pain, other specified site; multiple sites Edema 782.3 Active Yolande Lindsay MD PhD Edema Rash 782.1 Active Yolande Lindsay MD PhD Rash and other nonspecific skin eruption Back pain, lumbar 724.2 Active Gab Padron MD Lumbago Cough 786.2 Active Jillina Tyrel LENS POLISHER Cough 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 Jillina Frazellilian LENS POLISHER 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 Anemia 285.9 Active Gab Padron MD Anemia, unspecified Conjunctivitis 372.30 Active Jillina Tyrel LENS POLISHER Conjunctivitis, unspecified Sinusitis 473.9 Active Jillina Frazell LENS POLISHER Unspecified sinusitis (chronic) Nonspecific syndrome suggestive of viral illness 079.99 Active Rodrigo Sarah APRN Unspecified viral infection Laryngitis 464.00 Active Rodrigo Sarah APRN Acute laryngitis without mention of obstruction ANKLE PAIN, RIGHT ICD-719.47 Inactive Yolaned Lindsay MD PhD EDEMA, LIMB ICD-782.3 Inactive [...] MCG/DOSE AEPB 1 puff BID FLUTICASONE- SALMETEROL 58033452979 Active Rodrigo Sarah LENS POLISHER Active LEVOTHYROXINE SODIUM 75 MCG TABS Take 1 tab daily LEVOTHYROXINE SODIUM 71521672048 No Longer Active Mariana Cuadra RMA Active SYNTHROID 88 MCG ORAL TABS Take one by mouth daily LEVOTHYROXINE SODIUM 75162774715 Active Mariana Goisaiaher RMA Active CHERATUSSIN AC 100-10 MG/5ML SYRP 1 tsp by mouth every 4 hours as needed for cough GUAIFENESIN-CODEINE 10381479482 No Longer Active Gab Padron MD Active POLYTRIM 21860-4.1 UNIT/ML-% SOLN 1 gtt to affected eye q3h x 7 days POLYMYXIN B-TRIMETHOPRIM 71109369372 No Longer Active Gab Padron MD Active FLUTICASONE PROPIONATE 50 MCG/ACT SUSP 1 to 2 sprays each nostril daily 04/21 FLUTICASONE PROPIONATE 61236749451 No Longer Active Gab Padron MD Active TRILEPTAL 600 MG TABS Take one 1 tablet in Am and 1 tablet at night OXCARBAZEPINE 83233850723 Active Gab Padron MD Active CEFDINIR 300 MG CAPS 1 po BID x 10 days CEFDINIR 25601415271 No Longer Active Rodrigo Sarah APRN Active CEFTIN 500 MG TAB 1 twice a day CEFUROXIME AXETIL 82602181270 No Longer Active Gab Padron MD Active AZITHROMYCIN 250 MG TABS 2 po qd x 1 day, then 1 po qd x 4 days AZITHROMYCIN 36094384713 No Longer Active Rodrigo Sarah APRN Active CLARITIN 10 MG TAB 1 tablet by mouth daily as needed for allergies LORATADINE 95468334366 Active Silvestrellnacho Sarah APRN Active OXYCODONE HCL 5 MG ORAL CAPS 1 TAB PO Q HS OXYCODONE HCL 03968734585 No Longer Active Rodrigo Sarah APRN Active NIASPAN 500 MG ORAL CR-TABS 1 pill nightly x 1 week, then 2 pills nightly x 1 week, then 3 pills nightly x 1 week, then 4 pills nightly NIACIN (ANTIHYPERLIPIDEMIC) 89930378511 No Longer Active Rodrigo Sarah APRN Active NIACIN 500 MG TABS 1 pill by mouth nightly x 1 week, then 2 pills x 1 week, then 3 pills x 1 week, then 4 pills nightly - take after evening meal, with applesauce or an apple NIACIN 24471343631 No Longer Active Yolande Lindsay MD PhD Active FISH OIL 1000 MG CAPS 3 pills daily OMEGA-3 FATTY ACIDS 98106610885 Active Yolande Lindsay MD PhD Active TRIAMCINOLONE ACETONIDE 0.1 % CREA apply bid sparingly to rash TRIAMCINOLONE ACETONIDE 98267238814 Active Yolande Lindsay MD PhD Active FUROSEMIDE 20 MG TAB 1 tablet by mouth daily FUROSEMIDE 49309245768 Active Tisha Lambert APRN Active LISINOPRIL 20 MG ORAL TABS 1 tab by mouth daily LISINOPRIL 34249087047 Active Gab Padron MD Active FUROSEMIDE 20 MG TABS 1 pill by mouth daily, for edema FUROSEMIDE 00287398714 No Longer Active Yolande Lindsay MD PhD Active ATORVASTATIN CALCIUM 10 MG TABS 1 pill by mouth daily, for cholesterol 09/06 ATORVASTATIN CALCIUM 50178692677 Active Tisha Lambert APRN Active CALCIUM 600+D PLUS MINERALS 600-400 MG-UNIT ORAL CHEW 1 tab by mouth daily CALCIUM CARBONATE-VIT D-MIN 40373961024 No Longer Active Yolande Lindsay MD PhD Active CYCLOBENZAPRINE HCL 10 MG TABS 1 tablet by mouth three times daily as needed for muscle spasm/pain CYCLOBENZAPRINE HCL 21269723061 Active Yolande Lindsay MD PhD Active ONDANSETRON 4 MG TBDP 1 q4h PRN nausea ONDANSETRON 70472080077 Active Yolande Lindsay MD PhD Active ADULT ASPIRIN EC LOW STRENGTH 81 MG TBEC Take 1 tablet by mouth daily 2014 ASPIRIN 66719590775 No Longer Active Yolande Lindsay MD PhD Active ZOFRAN ODT 4 MG TBDP 1 pill dissolved by mouth every 4 hours if needed for nausea ONDANSETRON 97365496647 No Longer Active Yolande Lindsay MD PhD Active CEFTIN 500 MG TAB 1 twice a day CEFUROXIME AXETIL 79474746819 No Longer Active Yolande Lindsay MD PhD Active ALBUTEROL SULFATE 0.083 % NEBU SOLN one vial per nebulizer every 4-6 hours as needed ALBUTEROL SULFATE 17989490310 No Longer Active Alexis Ordaz MD Active DOXYCYCLINE HYCLATE 100 MG CAP 1 cap by mouth twice daily DOXYCYCLINE HYCLATE 70027507366 No Longer Active Yolande Lindsay MD PhD Active CYCLOBENZAPRINE HCL 10 MG TABS 1/2 - 1 tab by mouth three times daily if needed for spasms/pain CYCLOBENZAPRINE HCL 32942800163 No Longer Active Yolande Lindsay MD PhD Active AZITHROMYCIN 250 MG TABS 2 pills on day 1, then 1 pill daily x 4 days AZITHROMYCIN 93071215306 No Longer Active Yolande Lindsay MD PhD Active XOPENEX 1.25 MG/3ML NEBU 1 neb every 4 hours if needed for cough/congestion LEVALBUTEROL HCL 46952496789 No Longer Active Yolande Lidnsay MD PhD Active DOXYCYCLINE HYCLATE 100 MG TAB 1 tab twice a day for 14 days 2013 DOXYCYCLINE HYCLATE 04399007099 No Longer Active Yolande Lindsay MD PhD Active PREVACID 30 MG CPDR Take 1 tablet by mouth daily-PRN LANSOPRAZOLE 66043362572 No Longer Active Yolande Lindsay MD PhD Active PA VITAMIN D-3 2000 UNIT CAPS 1 CAP PO DAILY CHOLECALCIFEROL 39083033051 No Longer Active Yolande Lindsay MD PhD Active CEFDINIR 300 MG CAPS by mouth twice a day CEFDINIR 77854150928 No Longer Active Gab Padron MD Active TOPAMAX 50 MG TABS 1 PO twice daily TOPIRAMATE 07782600811 Active Yolande Lindsay MD PhD Active AZITHROMYCIN 250 MG TABS 2 po qd x 1 day, then 1 po qd x 4 days AZITHROMYCIN 80046738226 No Longer Active Yolande Lindsay MD PhD Active DICLOFENAC SODIUM 75 MG TBEC 1 tablet by q 12 hours PRN headaches DICLOFENAC SODIUM 08924284039 No Longer Active Yolande Lindsay MD PhD Active FLONASE 50 MCG/ACT SUSP 1 spray each nostril am and hs FLUTICASONE PROPIONATE 49210170938 No Longer Active Todd Callaway MD Active ANUSOL-HC 25 MG SUPPOSITORY 1 rectally twice a day as needed for hemorrhoids HYDROCORTISONE JAYDEN (RECTAL) 60194052150 No Longer Active Yolande Lindsay MD PhD Active ANUSOL-HC 25 MG SUPPOSITORY 1 suppository rectally each evening as needed for anal fissure HYDROCORTISONE JAYDEN (RECTAL) 73855694211 No Longer Active LONNIE Iglesias Active VALIUM 5 MG TAB 1 po 30 minutes prior to your MRI DIAZEPAM 34653015491 No Longer Active LONNIE Iglesias Active METHOCARBAMOL 750 MG TABS 1 PO QID PRN METHOCARBAMOL 16429198619 No Longer Active Daphne Wetzel APRN Active NITROSTAT 0.4 MG SUBL as directed NITROGLYCERIN 78252990141 No Longer Active Rodrigo Sarah APRN Active ROBAXIN-750 750 MG TABS 2 four times a day for 3 days as needed for muscle spasm, then 1 four times a day as needed METHOCARBAMOL 21286187366 No Longer Active Rodrigo Sarah APRN Active HYDROCODONE-ACETAMINOPHEN 5-325 MG TABS 1 q 4-6 hrs prn HYDROCODONE-ACETAMINOPHEN 57648311050 No Longer Active Rodrigo Sarah APRN Active VERAPAMIL HCL CR 180 MG CR-TABS TAKE 1 TAB DAILY VERAPAMIL HCL 09648546022 No Longer Active Yolande Lindsay MD PhD Active BACTRIM DS 800-160 MG TAB 1 tab by mouth twice daily TRIMETHOPRIM-SULFAMETHOXAZOLE 63290521885 No Longer Active Yolande Lindsay MD PhD Active NEXIUM 40 MG PACK 1 by mouth daily ESOMEPRAZOLE MAGNESIUM 83249765275 No Longer Active Des Hines MD Active EPIPEN 2-CHARLETTE 0.3 MG/0.3ML OMARI as need for allergic reaction EPINEPHRINE 66934306562 Active Yolande Lindsay MD PhD Active NEXIUM 40 MG CPDR 1 PO Q D DAY ESOMEPRAZOLE MAGNESIUM 58676216401 No Longer Active Sadia Morochoten RN Active NEXIUM 40 MG PACK 1 by mouth daily NEXIUM 40 MG PACK ESOMEPRAZOLE MAGNESIUM Inactive VERAPAMIL HCL CR 180 MG CR-TABS TAKE 1 TAB DAILY VERAPAMIL HCL CR 180 MG CR-TABS VERAPAMIL HCL Inactive HYDROCODONE-ACETAMINOPHEN 5-325 MG TABS 1 q 4-6 hrs prn HYDROCODONE-ACETAMINOPHEN 5-325 MG TABS 507108 HYDROCODONE-ACETAMINOPHEN Inactive ROBAXIN-750 750 MG TABS 2 four times a day for 3 days as needed for muscle spasm, then 1 four times a day as needed ROBAXIN-750 750 MG TABS 156955 METHOCARBAMOL Inactive NITROSTAT 0.4 MG SUBL as directed NITROSTAT 0.4 MG SUBL NITROGLYCERIN Inactive METHOCARBAMOL 750 MG TABS 1 PO QID PRN METHOCARBAMOL 750 MG TABS 858343 METHOCARBAMOL Inactive VALIUM 5 MG TAB 1 po 30 minutes prior to your MRI VALIUM 5 MG TAB 282867 DIAZEPAM Inactive ANUSOL-HC 25 MG SUPPOSITORY 1 suppository rectally each evening as needed for anal fissure ANUSOL-HC 25 MG SUPPOSITORY 9897997 HYDROCORTISONE JAYDEN (RECTAL) Inactive ANUSOL-HC 25 MG SUPPOSITORY 1 rectally twice a day as needed for hemorrhoids ANUSOL-HC 25 MG SUPPOSITORY 9650047 HYDROCORTISONE JAYDEN (RECTAL) Inactive FLONASE 50 MCG/ACT SUSP 1 spray each nostril am and hs FLONASE 50 MCG/ACT SUSP FLUTICASONE PROPIONATE Inactive DICLOFENAC SODIUM 75 MG TBEC 1 tablet by q 12 hours PRN headaches DICLOFENAC SODIUM 75 MG TBEC 060242 DICLOFENAC SODIUM Inactive PA VITAMIN D-3 2000 UNIT CAPS 1 CAP PO DAILY PA VITAMIN D-3 2000 UNIT CAPS CHOLECALCIFEROL Inactive PREVACID 30 MG CPDR Take 1 tablet by mouth daily-PRN PREVACID 30 MG CPDR 071516 LANSOPRAZOLE Inactive DOXYCYCLINE HYCLATE 100 MG TAB 1 tab twice a day for 14 days 2013 DOXYCYCLINE HYCLATE 100 MG TAB 8203402 DOXYCYCLINE HYCLATE Inactive XOPENEX 1.25 MG/3ML NEBU 1 neb every 4 hours if needed for cough/congestion XOPENEX 1.25 MG/3ML NEBU 732722 LEVALBUTEROL HCL Inactive CYCLOBENZAPRINE HCL 10 MG TABS 1/2 - 1 tab by mouth three times daily if needed for spasms/pain CYCLOBENZAPRINE HCL 10 MG TABS 993946 CYCLOBENZAPRINE HCL Inactive ALBUTEROL SULFATE 0.083 % NEBU SOLN one vial per nebulizer every 4-6 hours as needed ALBUTEROL SULFATE 0.083 % NEBU SOLN 385543 ALBUTEROL SULFATE Inactive CEFTIN 500 MG TAB 1 twice a day CEFTIN 500 MG TAB 859419 CEFUROXIME AXETIL Inactive ZOFRAN ODT 4 MG TBDP 1 pill dissolved by mouth every 4 hours if needed for nausea ZOFRAN ODT 4 MG TBDP 672488 ONDANSETRON Inactive ADULT ASPIRIN EC LOW STRENGTH 81 MG TBEC Take 1 tablet by mouth daily 2014 ADULT ASPIRIN EC LOW STRENGTH 81 MG TBEC 863758 ASPIRIN Inactive CALCIUM 600+D PLUS MINERALS 600-400 [...] or an apple NIACIN 500 MG TABS 833694 NIACIN Inactive NIASPAN 500 MG ORAL CR-TABS 1 pill nightly x 1 week, then 2 pills nightly x 1 week, then 3 pills nightly x 1 week, then 4 pills nightly NIASPAN 500 MG ORAL CR-TABS NIACIN (ANTIHYPERLIPIDEMIC) Inactive OXYCODONE HCL 5 MG ORAL CAPS 1 TAB PO Q HS OXYCODONE HCL 5 MG ORAL CAPS 8382243 OXYCODONE HCL Inactive FLUTICASONE PROPIONATE 50 MCG/ACT SUSP 1 to 2 sprays each nostril daily 04/21 FLUTICASONE PROPIONATE 50 MCG/ACT SUSP 848438 FLUTICASONE PROPIONATE Inactive POLYTRIM 71412-8.1 UNIT/ML-% SOLN 1 gtt to affected eye q3h x 7 days POLYTRIM 95450-0.1 UNIT/ML-% SOLN 444073 POLYMYXIN B- TRIMETHOPRIM Inactive CHERATUSSIN AC 100-10 MG/5ML SYRP 1 tsp by mouth every 4 hours as needed for cough CHERATUSSIN AC 100-10 MG/5ML SYRP 804578 GUAIFENESIN-CODEINE Inactive LEVOTHYROXINE SODIUM 75 MCG TABS Take 1 tab daily LEVOTHYROXINE SODIUM 75 MCG TABS 217885 LEVOTHYROXINE SODIUM Inactive BACTRIM DS 800-160 MG TAB 1 tab by mouth twice daily BACTRIM DS 800-160 MG TAB 113766 TRIMETHOPRIM-SULFAMETHOXAZOLE Inactive AZITHROMYCIN 250 MG TABS 2 po qd x 1 day, then 1 po qd x 4 days AZITHROMYCIN 250 MG TABS 7326580 AZITHROMYCIN Inactive CEFDINIR 300 MG CAPS by mouth twice a day CEFDINIR 300 MG CAPS 558426 CEFDINIR Inactive AZITHROMYCIN 250 MG TABS 2 pills on day 1, then 1 pill daily x 4 days AZITHROMYCIN 250 MG TABS 4686112 AZITHROMYCIN Inactive DOXYCYCLINE HYCLATE 100 MG CAP 1 cap by mouth twice daily DOXYCYCLINE HYCLATE 100 MG CAP 2327437 DOXYCYCLINE HYCLATE Inactive FUROSEMIDE 20 MG TABS 1 pill by mouth daily, for edema FUROSEMIDE 20 MG TABS 628854 FUROSEMIDE Inactive AZITHROMYCIN 250 MG TABS 2 po qd x 1 day, then 1 po qd x 4 days AZITHROMYCIN 250 MG TABS 9081764 AZITHROMYCIN Inactive CEFTIN 500 MG TAB 1 twice a day CEFTIN 500 MG TAB 443721 CEFUROXIME AXETIL Inactive CEFDINIR 300 MG CAPS 1 po BID x 10 days CEFDINIR 300 MG CAPS 348683 CEFDINIR Inactive Immunizations Vaccine Administration Date Value Standard Description Seasonal influenza vaccine, injectable, containing preservative, for > 3 years old (Afluria, FluLaval, Fluzone, Fluvirin, Fluarix, Agriflu(>=18 yo)) Fluzone (>3 yrs.) [BDU105] Influenza, seasonal, injectable influenza immunization (Flu Vax) has been administered Influenza - Unspecified Formulation [CVX88] influenza virus vaccine, unspecified formulation pneumococcal immunization administered Pneumovax 23 [CVX33] pneumococcal polysaccharide vaccine, 23 valent Seasonal influenza vaccine, injectable, containing preservative, for > 3 years old (Afluria, FluLaval, Fluzone, Fluvirin, Fluarix, Agriflu(>=18 yo)) Fluzone (>3 yrs.) [MWQ884] Influenza, seasonal, injectable dT (Diphtheria and Tetanus) booster given given Td(adult) unspecified formulation Boostrix (Tetanus toxoid, reduced diphtheria toxoid and acellular pertussis vaccine, adsorbed), booster Boostrix [HZX607] tetanus toxoid, reduced diphtheria toxoid, and acellular [...] Panel - Chemistry sodium, serum 145 mmol/L 610-710 2465/06/22 potassium, serum 3.9 mmol/L 3.5-5.2 chloride, serum 109 mmol/L 98-107 carbon dioxide, venous blood 23.4 mmol/L 21.0-32.0 blood glucose 92 mg/dL 65-110 calcium, serum 8.2 mg/dL 8.5-10.1 urea nitrogen, blood 24 mg/dL 7-18 creatinine, serum 1.30 mg/dL 0.60-1.30 Lab Report: [facility] Advanced Lipid and Inlammation Panel /79087 - Chemistry cholesterol, serum 198 mg/dL 785-360 5804/04/30 HDL cholesterol, serum 65 mg/dL > OR=46 triglyceride, serum, fasting 82 mg/dL LDL cholesterol, serum 117 mg/dL cholesterol/HDL ratio, serum 3.0 calc < OR=5.0 cholesterol, serum 148 mg/dL 741-357 3019/09/02 HDL cholesterol, serum 55 mg/dL > OR=46 [...] (L) - Chemistry sodium, serum 145 mmol/L 149-763 7316/09/02 potassium, serum 4.6 mmol/L 3.5-5.2 chloride, serum [...] Rate - Chemistry sodium, serum 139 mmol/L 196-332 8266/03/24 carbon dioxide, venous blood 22.4 mmol/L 21.0-32.0 [...] 51 mg/dL 30-200 cholesterol, serum 173 mg/dL 115-512 8494/04/28 HDL cholesterol, serum 63 mg/dL 32-96 LDL [...] mg/dL Encounters Code Encounter Date Provider Facility CPT-71418 Level 3 Est. Patient 11:30:07 CDT Rodrigo Sarah APRN [facility] CPT-46938 Level 4 Est. Patient 21:02:30 WATER HAULER Gab Padron MD [facility] CPT-31308 Level 3 Est. Patient 11:02:19 WATER HAULER Gab Padron MD [facility] CPT-60345 Level 4 Est. Patient 22:24:31 WATER HAULER Gab Padron MD [facility] CPT-41271 Level 3 Est. Patient 18:33:46 WATER HAULER Gab Padron MD [facility] CPT-06184 Level 3 Est. Patient 16:19:11 CDT Yolande Lindsay MD PhD [facility] CPT-00867 Level 3 Est. Patient 18:59:14 CDT Yolande Lindsay MD [facility] CPT-60839 Level 4 Est. Patient 21:29:26 CDT Yolande Lindsay MD [facility]-29939 Level 3 Est. Patient 07:37:45 CDT Yolande Lindsay MD [facility]-02167 Level 3 Est. Patient 17:03:46 CDT Yolande Lindsay MD [facility]-83103 Level 4 Est. Patient 20:02:13 WATER HAULER Yolande Lindsay MD [facility]-35350 Level 3 Est. Patient 16:02:07 WATER HAULER Alexis Ordaz MD [facility] CPT-02091 Level 3 Est. Patient 12:41:24 WATER HAULER Yolande Lindsay MD [facility]-44030 Level 3 Est. Patient 15:41:20 WATER HAULER Yolande Lindsay MD [facility] CPT-02045 Level 3 Est. Patient 13:20:02 WATER HAULER Yolande Lindsay MD [facility]-34583 Level 3 Est. Patient 15:00:38 CDT Jared Og MD [facility]-45100 Level 3 Est. Patient 10:22:32 CDT Yolande Lindsay MD [facility] CPT-18706 Level 3 Est. Patient 17:12:58 CDT Yolande Lindsay MD [facility] CPT-20314 Level 4 Est. Patient 13:30:58 CDT Yolande Lindsay MD [facility] CPT-31940 Level 4 New Patient 09:02:42 CDT Jared Og MD [facility]-07754 Level 3 Est. Patient 08:19:07 CDT Yolande Lindsay MD [facility]-30408 Level 3 Est. Patient 12:00:13 WATER HAULER Gab Padron MD [facility] CPT-50274 Level 3 Est. Patient 16:15:23 WATER HAULER Yolande Lindsay MD [facility]-33733 Level 2 Est. Patient 19:47:15 CDT Yolande Lindsay MD [facility]-79241 Level 3 Est. Patient 21:38:31 CDT Yolande Lindsay MD [facility]-37826 Level 3 Est. Patient 10:25:12 CDT Adiel PERAZA [facility]-76539 Level 4 Est. Patient 10:51:58 CDT Yolande Lindsay MD [facility]-57020 Level 3 Est. Patient 14:04:55 WATER HAULER Rodrigo Sarah [facility] CPT-39188 Level 3 Est. Patient 10:46:35 WATER HAULER Rodrigo Sarah [facility] CPT-96751 Level 3 Est. Patient 14:24:37 WATER HAULER Yolande Lindsay MD [facility] CPT-08272 Level 3 Est. Patient 17:41:58 WATER HAULER Yolande Lindsay MD [facility]-53959 Level 2 Est. Patient 22:01:41 WATER HAULER Rodrigo Sarah [facility] CPT-53724 Level 2 Est. Patient 22:01:11 WATER HAULER Rodrigo Sarah [facility]-16665 Level 3 Est. Patient 10:12:29 WATER HAULER Rodrigo Sarah [facility] CPT-28258 Level 3 Est. Patient 11:05:44 CDT Alexis Ordaz MD [facility]-70807 Level 3 Est. Patient 14:57:20 CDT Yolande Lindsay MD [facility] CPT-72575 Level 3 Est. Patient 14:40:57 CDT Yolande Lindsay MD [facility] CPT-76220 Level 3 Est. Patient 20:55:40 CDT Yolande Lindsay MD [facility] CPT-20149 Level 3 Est. Patient 12:42:38 WATER HAULER Yolande Lindsay MD [facility] CPT-86832 Level 3 Est. Patient 11:54:49 WATER HAULER Des Hines MD [facility] CPT-87509 Level 3 Est. Patient 17:06:38 CDT Dewayne PERAZA [facility] Procedures Code Procedure Name Date Entry Date Standard Description CPT-45628 LS spine comp w obliq 13:28:00 WATER HAULER CPT-J1040 Depo Medrol 80 mg (Methyl Prednisolone Acetate) 10:51: 28 WATER HAULER CPT-J1100 Decadron 8mg (Dexamethasone) 10:51:28 WATER HAULER CPT-50323 Abx/Therapy Injection 10:51:28 WATER HAULER CPT-J1100 Decadron 8mg (Dexamethasone) 21:02:30 WATER HAULER CPT-J1040 Depo Medrol 80 mg (Methyl Prednisolone Acetate) 21:02: 30 WATER HAULER [id number] Event Monitor - MC Transmission 09:12:32 CDT 08/06 [id number] Event Monitor - MC review and interp 09:12:32 CDT [id number] Event Monitor - MC recording 09:12:32 CDT CPT-92981 EKG Trac and Interp 16:50:22 CDT CPT-J1030 Depo Medrol 40 mg (Methyl Prednisolone Acetate) 17:05: 54 CDT CPT-J1100 Decadron 4mg (Dexamethasone) 17:05:54 CDT CPT-82775 Abx/Therapy Injection 17:05:54 CDT CPT-J1100 Decadron 4mg (Dexamethasone) 16:55:28 CDT CPT-J1030 Depo Medrol 40 mg (Methyl Prednisolone Acetate) 16:55: 28 CDT CPT-32685 Ankle Complete - Min 3V 15:58:50 CDT CPT-91840 Knee 3V 15:58:50 CDT CPT-59116 Hip comp min 2V 15:58:50 CDT CPT-J2270 Morphine Sulfate 10 mg 14:25:44 WATER HAULER CPT-J2550 Phenergan 12.5 mg (Promethazine) 14:25:44 WATER HAULER CPT-88608 Abx/Therapy Injection 14:25:44 WATER HAULER CPT-J2550 Phenergan 12.5 mg (Promethazine) 14:08:03 WATER HAULER CPT-J2270 Morphine Sulfate 10 mg 14:08:03 WATER HAULER CPT-49773 Bladder Scan 15:00:38 CDT CPT-TCMM Transitional Care Mgmt-Moderate 09:52:22 CDT CPT-J1030 Depo Medrol 40 mg (Methyl Prednisolone Acetate) 10:55: 18 CDT CPT-J1100 Decadron 4mg (Dexamethasone) 10:55:18 CDT CPT-55057 Abx/Therapy Injection 10:55:18 CDT CPT-J1030 Depo Medrol 40 mg (Methyl Prednisolone Acetate) 10:22: 32 CDT CPT-J1100 Decadron 4mg (Dexamethasone) 10:22:32 CDT CPT-43324 Postop F/U Visit 14:37:13 CDT CPT-86774 Ankle Complete - Min 3V 17:11:58 CDT CPT-08085 Foot comp min 3V 17:11:58 CDT CPT-45362 Bladder Scan 09:56:58 CDT CPT-04487 Postop F/U Visit 09:56:58 CDT CPT-09149 Cystoscopy 09:02:42 CDT CPT-87773 Bladder Scan 09:02:42 CDT CPT-62625 Abd single AP View 16:00:35 CDT CPT-34844 Administration single or combination vaccine inc oral 10 :15:43 CDT CPT-46841 Influenza split virus > age 3 10:15:43 CDT CPT-84922 Nail Avulsion 09:24:57 CDT CPT-OV Office Visit 11:15:41 CDT CPT-29951 Abx/Therapy Injection 10:51:30 CDT CPT-J3301 Kenalog 40 mg (Triamcinolone Acetonide) 10:25:12 CDT CPT-J1100 Decadron 4mg (Dexamethasone) 10:25:12 CDT CPT-24168 Anoscopy diagnostic 10:36:12 CDT CPT-OV Office Visit 15:34:31 CDT CPT-09194 Abx/Therapy Injection 08:21:15 WATER HAULER CPT-J1885 Toradol 60 mg (Ketorolac) 10:46:35 WATER HAULER CPT-OV Office Visit 19:51:16 WATER HAULER CPT-28403 Spec Collection and Handling Fee 14:34:18 WATER HAULER CPT-PV Prev. Care Visit 14:19:18 WATER HAULER CPT-52355 Postop F/U Visit 14:47:51 WATER HAULER CPT-73439 Postop F/U Visit 15:15:14 WATER HAULER CPT-13884 Postop F/U Visit 14:41:43 CDT CPT-34048 Postop F/U Visit 15:47:46 CDT CPT-OV Office Visit 15:27:23 CDT CPT-OV Office Visit 17:20:34 CDT CPT-72036 Abx/Therapy Injection 15:05:57 CDT CPT-J1100 Decadron 8mg (Dexamethasone) 14:44:57 CDT CPT-J1040 Depo Medrol 80 mg (Methyl Prednisolone Acetate) 14:44: 57 CDT CPT-JTINJ Joint Injection 10:17:37 CDT CPT-77056 Administration 2+ single or combination vaccines inc oral 13:01:46 WATER HAULER CPT-41719 Administration single or combination vaccine inc oral 13 :01:46 WATER HAULER CPT-73600 Pneumovax 13:01:46 WATER HAULER CPT-45113 Influenza split virus > age 3 13:01:46 WATER HAULER CPT-76045 Administration single or combination vaccine inc oral 08 :56:49 CDT CPT-35627 Tdap 08:56:49 CDT
--- OUTSIDE RECORDS SUMMARY | 2017-03-22 01:09 | XMS REPORT ---
Author Author [facility] Medical Staff Organization [facility] Address [address] [id number] Phone [phone] Summary purpose TRANSITION OF CARE AUTO GENERATION [...] tests and/or laboratory data RESULTS Radiology Results [id number] CT L-SPINE W/O CONT PACs Image DATE OF EXAM: Nov 20 2014 [id number] LUMBAR SPINE WO CONTRAST : RADIOLOGY REPORT DATE OF SERVICE: 11/20/14 HISTORY: Patient has low back pain and spondylolisthesis of L5 on S1. CT LUMBAR SPINE WITHOUT CONTRAST 1320 HOURS Axial images were obtained through the lumbar spine with sagittal and coronal reformatted images performed. There is mild grade 3 spondylolisthesis of L5 on S1. Marked spurring is seen anteriorly at L5-S1. There is posterior spurring which extends from the L5 vertebrae to the normal posterior border of S1 vertebrae. There is bilateral spondylolysis at L5 which is prominent. Vertebral alignment otherwise is normal and vertebral body heights are maintained with the exception of mild narrowing of the posterior half of L5. There is mild retrolisthesis of T12 on L1 measuring 3 mm which appear to be chronic on MRI studies previously. There is marked narrowing of the L5-S1 interspace. Remaining interspaces are normal with the exception of very minimal narrowing at L3-4. There is normal alignment of facet joints, but there is marked degenerative change of the L5-S1 facets and moderate to prominent degenerative change of L4-5 facet joints and moderate degenerative change of the 3-4 facet joints and some degenerative change of mild to moderate degree on the right at L2-3 facet joint. There is no bony narrowing of the neural foramina except the prominent narrowing present at L5-S1 as seen on MRI study 11/18/2014 bilaterally. No lytic destructive bone lesion is seen. IMPRESSION: As above. DO ARIS Cruz/liam 11/20/2014 14:01:00 / 11/20/2014 14:05:21 cc:Dr. Pk Nicholson This document has been electronically Signed by: On: DATE OF EXAM: Nov 20 2014 [id number] LUMBAR SPINE WO CONTRAST : RADIOLOGY REPORT DATE OF SERVICE: 11/20/14 HISTORY: Patient has low back pain and spondylolisthesis of L5 on S1. CT LUMBAR SPINE WITHOUT CONTRAST 1320 HOURS Axial images were obtained through the lumbar spine with sagittal and coronal reformatted images performed. There is mild grade 3 spondylolisthesis of L5 on S1. Marked spurring is seen anteriorly at L5-S1. There is posterior spurring which extends from the L5 vertebrae to the normal posterior border of S1 vertebrae. There is bilateral spondylolysis at L5 which is prominent. Vertebral alignment otherwise is normal and vertebral body heights are maintained with the exception of mild narrowing of the posterior half of L5. There is mild retrolisthesis of T12 on L1 measuring 3 mm which appear to be chronic on MRI studies previously. There is marked narrowing of the L5-S1 interspace. Remaining interspaces are normal with the exception of very minimal narrowing at L3-4. There is normal alignment of facet joints, but there is marked degenerative change of the L5-S1 facets and moderate to prominent degenerative change of L4-5 facet joints and moderate degenerative change of the 3-4 facet joints and some degenerative change of mild to moderate degree on the right at L2-3 facet joint. There is no bony narrowing of the neural foramina except the prominent narrowing present at L5-S1 as seen on MRI study 11/18/2014 bilaterally. No lytic destructive bone lesion is seen. IMPRESSION: As above. Chris Lafleur DO MW/liam 11/20/2014 14:01:00 / 11/20/2014 14:05:21 cc:Dr. Pk Nicholson This document has been electronically Signed by: CHRIS LAFLEUR DO On: Nov 20 20145:46P Result Amended on 2014-11-20 at 17:46:33. Previous status was [place]. History of procedures No procedures recorded for [...]
--- OUTSIDE RECORDS SUMMARY | 2017-03-22 01:12 | XMS REPORT ---
Author Author [facility] Medical Staff Organization [facility] Address [address] [id number] Phone [phone] Care Team Providers Care Director Of Valuation Name Role Phone EVELYN SPEARS MD PP [phone] Summary purpose TRANSITION OF CARE AUTO GENERATION [...] tests and/or laboratory data RESULTS Radiology Results [id number] FOOT XRAY - 3 VIEW PACs Image DATE OF EXAM: May 23 2015 RAD 0649-FOOT XRAY-3 VIEW- RIGHT: RADIOLOGY REPORT DATE OF SERVICE: 05/23/2015 HISTORY:Foot pain, injured dropping bottle on it. RIGHT FOOT - 3 VIEWS 0000 HOURS There is no fracture. There are no erosions. There is a large calcified inferior calcaneal spur. IMPRESSION: No acute abnormality. Calcaneal spur present. MD DEMI Hubbard/kendal 05/24/2015 13:34:00 / 05/24/2015 16:13:10 cc:Dr. Hines This document has been electronically Signed by: On: DATE OF EXAM: May 23 2015 RAD 0649-FOOT XRAY-3 VIEW- RIGHT: RADIOLOGY REPORT DATE OF SERVICE: 05/23/2015 HISTORY:Foot pain, injured dropping bottle on it. RIGHT FOOT - 3 VIEWS 0000 HOURS There is no fracture. There are no erosions. There is a large calcified inferior calcaneal spur. IMPRESSION: No acute abnormality. Calcaneal spur present. MD DEMI Hubbard/kendal 05/24/2015 13:34:00 / 05/24/2015 16:13:10 cc:Dr. Hines This document has been electronically Signed by: ARCENIO NINO MD On: May 25 20157:34P Result Amended on 2015-05-25 at 19:34:39. Previous status was [place]. History of procedures Procedure Code Code Type Description Date Performed Performing Physician 28476 CPT-4 X-RAY EXAM OF FOOT 05-23-2015 JASSSP MAYS 00760 CPT-4 EMERGENCY DEPT VISIT 05-23-2015 JASSSP HOLDERAHAN 11684 CPT-4 EMERGENCY DEPT VISIT 05-23-2015 JASS TABATHA Functional status Functional Status Finding Observation Time Abdomen Appearance obese 73-03-700180:30 Abdomen soft :30 Bajwa no [id number]:30 Urination normal :30 Quality sym/unlabored :30 Cough absent [id number]:30 Secretions no :30 Breath Sounds RUL clear :30 Breath Sounds RML clear :30 Breath Sounds RLL clear :30 Breath Sounds LESLIE clear :30 Breath Sounds LLL clear :30 Airway natural :30 Chest Tube no :30 Oxygen no :20 Temp >100.4 no :20 Temp <96.8 no :20 Chills with rigors no :20 HR > 90bpm no :20 Respirations > 20 no :20 Systolic <90 no :20 headache stiff neck no :20 Nursing Note ibuprofen 600mg PO admin, radiology in room for xray 05-23-2015 23:50 Vital signs Type Value Date Respiration Rate 18breaths per minute :20 Pulse 91beats per minute :20 Oxygen Saturation 98% :20 BP Systolic 124mmHg :20 BP Diastolic 70mmHg :20 Temperature 98.3F 28-36-851056:20 Social history Type Value Smoking Status FORMER SMOKER Treatment Plan No treatment plan text is available for this visit. Hospital discharge instructions Dismissal Condition good Disposition on DC home DC Inst/Educ Give yes Med/Side Effects Rev yes PNE Vac Jan 13, 2015 Flu Vac Jan 13, 2015
--- OUTSIDE RECORDS SUMMARY | 2017-03-22 01:12 | XMS REPORT | Clinical Summary ---
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 Jillina Frazellilian ANESTHESIOLOGIST ATTENDING 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 Anemia 285.9 Active Gab Padron MD Anemia, unspecified Conjunctivitis 372.30 Active Jillnacho Sarah APRN Conjunctivitis, unspecified Sinusitis 473.9 Active Silvestrellina Frazell ANESTHESIOLOGIST ATTENDING Unspecified sinusitis (chronic) Nonspecific syndrome suggestive of viral illness 079.99 Active Jillina Frazell ANESTHESIOLOGIST ATTENDING Unspecified viral infection Laryngitis 464.00 Active Jillina Frazell ANESTHESIOLOGIST ATTENDING Acute laryngitis without mention of obstruction Abdominal [...] Flank pain, left 789.09 Active Jillina Frazell ANESTHESIOLOGIST ATTENDING Abdominal pain, other specified site; multiple sites Abdominal pain, generalized 789.07 Active Jillina Farshadzell ANESTHESIOLOGIST ATTENDING Abdominal pain, generalized Back pain, thoracic region, left 724.1 Active Jillina Frazell ANESTHESIOLOGIST ATTENDING Pain in thoracic spine Abdominal pain, left [...] MD PhD Hip pain, left ICD-719.45 Inactive Yolnade Lindsay MD PhD Sinusitis, maxillary, acute ICD-461.0 [...] 1/2 tab daily for 2 days PREDNISONE 24417717037 No Longer Active Gab Padron MD Active ZOFRAN ODT 4 MG TBDP 1 po q6hr PRN Nausea ONDANSETRON 05661549319 Active Rodrigo Sarah ANESTHESIOLOGIST ATTENDING Active IBUPROFEN 600 MG TAB 1 tablet by mouth every 6 hours for 7 days, then 1 tablet every 6 hours as needed. Take with food IBUPROFEN 53676509089 Active Rodrigo Sarah APRN Active BACTRIM DS 800-160 MG TAB 1 tab by mouth twice daily TRIMETHOPRIM-SULFAMETHOXAZOLE 19714243299 No Longer Active Gab Padron MD Active ADVAIR DISKUS 250-50 MCG/DOSE AEPB 1 puff BID FLUTICASONE- SALMETEROL 88777689444 Active Rodrigo Sarah APRN Active LEVOTHYROXINE SODIUM 75 MCG TABS Take 1 tab daily LEVOTHYROXINE SODIUM 74928988283 No Longer Active Mariana Cuadra RMA Active SYNTHROID 88 MCG ORAL TABS Take one by mouth daily LEVOTHYROXINE SODIUM 64074711711 Active Tisha Lambert APRN Active CHERATUSSIN AC 100-10 MG/5ML SYRP 1 tsp by mouth every 4 hours as needed for cough GUAIFENESIN-CODEINE 99876018911 No Longer Active Gab Padron MD Active POLYTRIM 37694-8.1 UNIT/ML-% SOLN 1 gtt to affected eye q3h x 7 days POLYMYXIN B-TRIMETHOPRIM 56645666619 No Longer Active Gab Padron MD Active FLUTICASONE PROPIONATE 50 MCG/ACT SUSP 1 to 2 sprays each nostril daily 04/21 FLUTICASONE PROPIONATE 27280277673 No Longer Active Gab Padron MD Active TRILEPTAL 600 MG TABS Take one 1 tablet in Am and 1 tablet at night OXCARBAZEPINE 17549090089 Active Gab Padron MD Active CEFDINIR 300 MG CAPS 1 po BID x 10 days CEFDINIR 14469746085 No Longer Active Rodrigo Sarah APRN Active CEFTIN 500 MG TAB 1 twice a day CEFUROXIME AXETIL 18007498098 No Longer Active Gab Padron MD Active AZITHROMYCIN 250 MG TABS 2 po qd x 1 day, then 1 po qd x 4 days AZITHROMYCIN 97279971729 No Longer Active Rodrigo Sarah APRN Active CLARITIN 10 MG TAB 1 tablet by mouth daily as needed for allergies LORATADINE 77727737595 Active Rodrigo Sarah APRN Active OXYCODONE HCL 5 MG ORAL CAPS 1 TAB PO Q HS OXYCODONE HCL 65577854104 No Longer Active Rodrigo Sarah APRN Active NIASPAN 500 MG ORAL CR-TABS 1 pill nightly x 1 week, then 2 pills nightly x 1 week, then 3 pills nightly x 1 week, then 4 pills nightly NIACIN (ANTIHYPERLIPIDEMIC) 71983183703 No Longer Active Rodrigo Sarah APRN Active NIACIN 500 MG TABS 1 pill by mouth nightly x 1 week, then 2 pills x 1 week, then 3 pills x 1 week, then 4 pills nightly - take after evening meal, with applesauce or an apple NIACIN 31004943778 No Longer Active Yolande Lindsay MD PhD Active FISH OIL 1000 MG CAPS 3 pills daily OMEGA-3 FATTY ACIDS 59570179232 Active Yolande Lindsay MD PhD Active TRIAMCINOLONE ACETONIDE 0.1 % CREA apply bid sparingly to rash TRIAMCINOLONE ACETONIDE 81843684416 Active Yolande Lindsay MD PhD Active FUROSEMIDE 20 MG TAB 1 tablet by mouth daily FUROSEMIDE 87396686294 Active Tisha Lambert APRN Active LISINOPRIL 20 MG ORAL TABS 1 tab by mouth daily LISINOPRIL 31416254199 Active Tisha Lambert APRN Active FUROSEMIDE 20 MG TABS 1 pill by mouth daily, for edema FUROSEMIDE 64755874065 No Longer Active Yolande Lindsay MD PhD Active ATORVASTATIN CALCIUM 10 MG TABS 1 pill by mouth daily, for cholesterol 09/06 ATORVASTATIN CALCIUM 78579294714 Active Tisha Lambert APRN Active CALCIUM 600+D PLUS MINERALS 600-400 MG-UNIT ORAL CHEW 1 tab by mouth daily CALCIUM CARBONATE-VIT D-MIN 79434686360 No Longer Active Yolande Lindsay MD PhD Active CYCLOBENZAPRINE HCL 10 MG TABS 1 tablet by mouth three times daily as needed for muscle spasm/pain CYCLOBENZAPRINE HCL 38710207362 Active Yolande Lindsay MD PhD Active ONDANSETRON 4 MG TBDP 1 q4h PRN nausea ONDANSETRON 68172278240 Active Yolande Lindsay MD PhD Active ADULT ASPIRIN EC LOW STRENGTH 81 MG TBEC Take 1 tablet by mouth daily 2014 ASPIRIN 04029667140 No Longer Active Yolande Lindsay MD PhD Active ZOFRAN ODT 4 MG TBDP 1 pill dissolved by mouth every 4 hours if needed for nausea ONDANSETRON 35344907334 No Longer Active Yolande Lindsay MD PhD Active CEFTIN 500 MG TAB 1 twice a day CEFUROXIME AXETIL 11472829946 No Longer Active Yolande Lindsay MD PhD Active ALBUTEROL SULFATE 0.083 % NEBU SOLN one vial per nebulizer every 4-6 hours as needed ALBUTEROL SULFATE 85990657416 No Longer Active Alexis Ordaz MD Active DOXYCYCLINE HYCLATE 100 MG CAP 1 cap by mouth twice daily DOXYCYCLINE HYCLATE 46574451891 No Longer Active Yolande Lindsay MD PhD Active CYCLOBENZAPRINE HCL 10 MG TABS 1/2 - 1 tab by mouth three times daily if needed for spasms/pain CYCLOBENZAPRINE HCL 94015908191 No Longer Active Yolande Lindsay MD PhD Active AZITHROMYCIN 250 MG TABS 2 pills on day 1, then 1 pill daily x 4 days AZITHROMYCIN 44174119420 No Longer Active Yolande Lindsay MD PhD Active XOPENEX 1.25 MG/3ML NEBU 1 neb every 4 hours if needed for cough/congestion LEVALBUTEROL HCL 89786670381 No Longer Active Yolande Lindsay MD PhD Active DOXYCYCLINE HYCLATE 100 MG TAB 1 tab twice a day for 14 days 2013 DOXYCYCLINE HYCLATE 30163539045 No Longer Active Yolande Lindsay MD PhD Active PREVACID 30 MG CPDR Take 1 tablet by mouth daily-PRN LANSOPRAZOLE 23902809481 No Longer Active Yolande Lindsay MD PhD Active PA VITAMIN D-3 2000 UNIT CAPS 1 CAP PO DAILY CHOLECALCIFEROL 31822852239 No Longer Active Yolande Lindsay MD PhD Active CEFDINIR 300 MG CAPS by mouth twice a day CEFDINIR 55354157960 No Longer Active Gab Padron MD Active TOPAMAX 50 MG TABS 1 PO twice daily TOPIRAMATE 52362877089 Active Yolande Lindsay MD PhD Active AZITHROMYCIN 250 MG TABS 2 po qd x 1 day, then 1 po qd x 4 days AZITHROMYCIN 03797426427 No Longer Active Yolande Lindsya MD PhD Active DICLOFENAC SODIUM 75 MG TBEC 1 tablet by q 12 hours PRN headaches DICLOFENAC SODIUM 43149611992 No Longer Active Yolande Lindsay MD PhD Active FLONASE 50 MCG/ACT SUSP 1 spray each nostril am and hs FLUTICASONE PROPIONATE 16367391345 No Longer Active Todd Callaway MD Active ANUSOL-HC 25 MG SUPPOSITORY 1 rectally twice a day as needed for hemorrhoids HYDROCORTISONE JAYDEN (RECTAL) 83603580616 No Longer Active Yolande Lindsay MD PhD Active ANUSOL-HC 25 MG SUPPOSITORY 1 suppository rectally each evening as needed for anal fissure HYDROCORTISONE JAYDEN (RECTAL) 73240500959 No Longer Active LONNIE Iglesias Active VALIUM 5 MG TAB 1 po 30 minutes prior to your MRI DIAZEPAM 51987598705 No Longer Active LONNIE Iglesias Active METHOCARBAMOL 750 MG TABS 1 PO QID PRN METHOCARBAMOL 08188273041 No Longer Active Daphne Wetzel APRN Active NITROSTAT 0.4 MG SUBL as directed NITROGLYCERIN 94194695291 No Longer Active Silvestrellina Frahossein ZAPATAN Active ROBAXIN-750 750 MG TABS 2 four times a day for 3 days as needed for muscle spasm, then 1 four times a day as needed METHOCARBAMOL 89034849694 No Longer Active Jillina Frazellilian ANESTHESIOLOGIST ATTENDING Active HYDROCODONE-ACETAMINOPHEN 5-325 MG TABS 1 q 4-6 hrs prn HYDROCODONE-ACETAMINOPHEN 24963460098 No Longer Active Jillina Frazellilian ANESTHESIOLOGIST ATTENDING Active VERAPAMIL HCL CR 180 MG CR-TABS TAKE 1 TAB DAILY VERAPAMIL HCL 08561261978 No Longer Active Yolande Lindsay MD PhD Active BACTRIM DS 800-160 MG TAB 1 tab by mouth twice daily TRIMETHOPRIM-SULFAMETHOXAZOLE 36891141759 No Longer Active Yolande Lindsay MD PhD Active NEXIUM 40 MG PACK 1 by mouth daily ESOMEPRAZOLE MAGNESIUM 65514877053 No Longer Active Des Hines MD Active EPIPEN 2-CHARLETTE 0.3 MG/0.3ML OMARI as need for allergic reaction EPINEPHRINE 05472429199 Active Yolande Lindsay MD PhD Active NEXIUM 40 MG CPDR 1 PO Q D DAY ESOMEPRAZOLE MAGNESIUM 90082513558 No Longer Active Sadia Perry RN Active NEXIUM 40 MG PACK 1 by mouth daily NEXIUM 40 MG PACK ESOMEPRAZOLE MAGNESIUM Inactive VERAPAMIL HCL CR 180 MG CR-TABS TAKE 1 TAB DAILY VERAPAMIL HCL CR 180 MG CR-TABS VERAPAMIL HCL Inactive HYDROCODONE-ACETAMINOPHEN 5-325 MG TABS 1 q 4-6 hrs prn HYDROCODONE-ACETAMINOPHEN 5-325 MG TABS 823984 HYDROCODONE-ACETAMINOPHEN Inactive ROBAXIN-750 750 MG TABS 2 four times a day for 3 days as needed for muscle spasm, then 1 four times a day as needed ROBAXIN-750 750 MG TABS 19780706 METHOCARBAMOL Inactive NITROSTAT 0.4 MG SUBL as directed NITROSTAT 0.4 MG SUBL 153519 NITROGLYCERIN Inactive METHOCARBAMOL 750 MG TABS 1 PO QID PRN METHOCARBAMOL 750 MG TABS 19780706 METHOCARBAMOL Inactive VALIUM 5 MG TAB 1 po 30 minutes prior to your MRI VALIUM 5 MG TAB 691359 DIAZEPAM Inactive ANUSOL-HC 25 MG SUPPOSITORY 1 suppository rectally each evening as needed for anal fissure ANUSOL-HC 25 MG SUPPOSITORY 4022140 HYDROCORTISONE JAYDEN (RECTAL) Inactive ANUSOL-HC 25 MG SUPPOSITORY 1 rectally twice a day as needed for hemorrhoids ANUSOL-HC 25 MG SUPPOSITORY 9114228 HYDROCORTISONE JAYDEN (RECTAL) Inactive FLONASE 50 MCG/ACT SUSP 1 spray each nostril am and hs FLONASE 50 MCG/ACT SUSP FLUTICASONE PROPIONATE Inactive DICLOFENAC SODIUM 75 MG TBEC 1 tablet by q 12 hours PRN headaches DICLOFENAC SODIUM 75 MG TBEC 219672 DICLOFENAC SODIUM Inactive PA VITAMIN D-3 2000 UNIT CAPS 1 CAP PO DAILY PA VITAMIN D-3 2000 UNIT CAPS CHOLECALCIFEROL Inactive PREVACID 30 MG CPDR Take 1 tablet by mouth daily-PRN PREVACID 30 MG CPDR 726734 LANSOPRAZOLE Inactive DOXYCYCLINE HYCLATE 100 MG TAB 1 tab twice a day for 14 days 2013 DOXYCYCLINE HYCLATE 100 MG TAB 1088054 DOXYCYCLINE HYCLATE Inactive XOPENEX 1.25 MG/3ML NEBU 1 neb every 4 hours if needed for cough/congestion XOPENEX 1.25 MG/3ML NEBU 455276 LEVALBUTEROL HCL Inactive CYCLOBENZAPRINE HCL 10 MG TABS 1/2 - 1 tab by mouth three times daily if needed for spasms/pain CYCLOBENZAPRINE HCL 10 MG TABS 535637 CYCLOBENZAPRINE HCL Inactive ALBUTEROL SULFATE 0.083 % NEBU SOLN one vial per nebulizer every 4-6 hours as needed ALBUTEROL SULFATE 0.083 % NEBU SOLN 053992 ALBUTEROL SULFATE Inactive CEFTIN 500 MG TAB 1 twice a day CEFTIN 500 MG TAB 819935 CEFUROXIME AXETIL Inactive ZOFRAN ODT 4 MG TBDP 1 pill dissolved by mouth every 4 hours if needed for nausea ZOFRAN ODT 4 MG TBDP 802217 ONDANSETRON Inactive ADULT ASPIRIN EC LOW STRENGTH 81 MG TBEC Take 1 tablet by mouth daily 2014 ADULT ASPIRIN EC LOW STRENGTH 81 MG TBEC 154945 ASPIRIN Inactive CALCIUM 600+D PLUS MINERALS 600-400 [...] or an apple NIACIN 500 MG TABS 856393 NIACIN Inactive NIASPAN 500 MG ORAL CR-TABS 1 pill nightly x 1 week, then 2 pills nightly x 1 week, then 3 pills nightly x 1 week, then 4 pills nightly NIASPAN 500 MG ORAL CR-TABS NIACIN (ANTIHYPERLIPIDEMIC) Inactive OXYCODONE HCL 5 MG ORAL CAPS 1 TAB PO Q HS OXYCODONE HCL 5 MG ORAL CAPS 2634849 OXYCODONE HCL Inactive FLUTICASONE PROPIONATE 50 MCG/ACT SUSP 1 to 2 sprays each nostril daily 04/21 FLUTICASONE PROPIONATE 50 MCG/ACT SUSP 9236894 FLUTICASONE PROPIONATE Inactive POLYTRIM 55167-7.1 UNIT/ML-% SOLN 1 gtt to affected eye q3h x 7 days POLYTRIM 47255-4.1 UNIT/ML-% SOLN 320911 POLYMYXIN B- TRIMETHOPRIM Inactive CHERATUSSIN AC 100-10 MG/5ML SYRP 1 tsp by mouth every 4 hours as needed for cough CHERATUSSIN AC 100-10 MG/5ML SYRP 407817 GUAIFENESIN-CODEINE Inactive LEVOTHYROXINE SODIUM 75 MCG TABS Take 1 tab daily LEVOTHYROXINE SODIUM 75 MCG TABS 431279 LEVOTHYROXINE SODIUM Inactive BACTRIM DS 800-160 MG TAB 1 tab by mouth twice daily BACTRIM DS 800-160 MG TAB 19820606 TRIMETHOPRIM-SULFAMETHOXAZOLE Inactive AZITHROMYCIN 250 MG TABS 2 po qd x 1 day, then 1 po qd x 4 days AZITHROMYCIN 250 MG TABS 2543038 AZITHROMYCIN Inactive CEFDINIR 300 MG CAPS by mouth twice a day CEFDINIR 300 MG CAPS 20020708 CEFDINIR Inactive AZITHROMYCIN 250 MG TABS 2 pills on day 1, then 1 pill daily x 4 days AZITHROMYCIN 250 MG TABS 5116648 AZITHROMYCIN Inactive DOXYCYCLINE HYCLATE 100 MG CAP 1 cap by mouth twice daily DOXYCYCLINE HYCLATE 100 MG CAP 6711827 DOXYCYCLINE HYCLATE Inactive FUROSEMIDE 20 MG TABS 1 pill by mouth daily, for edema FUROSEMIDE 20 MG TABS 891222 FUROSEMIDE Inactive AZITHROMYCIN 250 MG TABS 2 po qd x 1 day, then 1 po qd x 4 days AZITHROMYCIN 250 MG TABS 3143215 AZITHROMYCIN Inactive CEFTIN 500 MG TAB 1 twice a day CEFTIN 500 MG TAB 900542 CEFUROXIME AXETIL Inactive CEFDINIR 300 MG CAPS [...] for 2 days PREDNISONE 20 MG TAB 487893 PREDNISONE Inactive Immunizations Vaccine Administration Date Value Standard Description Seasonal influenza vaccine, injectable, containing preservative, for > 3 years old (Afluria, FluLaval, Fluzone, Fluvirin, Fluarix, Agriflu(>=18 yo)) Fluzone (>3 yrs.) [TUH869] Influenza, seasonal, injectable influenza immunization (Flu Vax) has been administered Influenza - Unspecified Formulation [CVX88] influenza virus vaccine, unspecified formulation Seasonal influenza vaccine, injectable, containing preservative, for > 3 years old (Afluria, FluLaval, Fluzone, Fluvirin, Fluarix, Agriflu(>=18 yo)) Fluzone (>3 yrs.) [AZJ694] Influenza, seasonal, injectable pneumococcal immunization administered Pneumovax 23 [CVX33] pneumococcal polysaccharide vaccine, 23 valent dT (Diphtheria and Tetanus) booster given given Td(adult) unspecified formulation Boostrix (Tetanus toxoid, reduced diphtheria toxoid and acellular pertussis vaccine, adsorbed), booster Boostrix [QBW519] tetanus toxoid, reduced diphtheria toxoid, and acellular [...] E&M - 3141-9 243.5 [lb_av] Weight Measured Diagnostic Results Date Name Value Unit Range Description Lab Report: Basic Metabolic Panel - Chemistry sodium, serum 142 mmol/L 849-920 0355/06/30 potassium, serum 4.4 mmol/L 3.5-5.2 chloride, serum [...] Rate - Chemistry sodium, serum 139 mmol/L 267-634 7489/03/24 carbon dioxide, venous blood 22.4 mmol/L 21.0-32.0 [...] ... - Chemistry sodium, serum 143 mmol/L 006-782 1592/05/02 carbon dioxide, venous blood 25.6 mmol/L 21.0-32.0 [...] PANEL - Chemistry cholesterol, serum 166 mg/dL 627-130 0502/12/06 triglyceride, serum, fasting 86 mg/dL 30-200 HDL [...] dipstick Negative Negative sodium, serum 142 mmol/L 625-303 0201/07/18 carbon dioxide, venous blood 27.8 mmol/L 21.0-32.0 [...] negative Encounters Code Encounter Date Provider Facility CPT-37015 Level 4 Est. Patient 19:55:18 GLO Og MD [facility] CPT-34340 Level 3 Est. 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 Patient 16:31:27 CDT Gab Padron MD [facility] CPT-46778 Level 2 Est. Patient 12:23:38 CDT Jared Og MD [facility] CPT-88787 Level 3 Est. Patient 11:01:51 CDT Gab Padron MD [facility] CPT-56237 Level 3 Est. Patient 15:27:02 CDT Jared Og MD [facility] CPT-11120 Level 4 Est. Patient 09:25:27 CDT Gab Padron MD [facility] CPT-22998 Level 3 Est. Patient 10:29:41 CDT Rodrigo Sarah [facility] CPT-54914 Level 4 Est. Patient 17:51:05 CDT Gab Padron MD [facility] CPT-25019 Level 3 Est. Patient 14:18:08 CDT Gab Padron MD [facility] CPT-07781 Level 4 Est. Patient 10:18:54 CDT Gab Padron MD [facility] CPT-94163 Level 3 Est. Patient 11:30:07 CDT Rodrigo Sarah [facility] CPT-33478 Level 4 Est. 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 Patient 11:02:19 LEVEL VIAL SETTER Gab Padron MD [facility] CPT-70172 Level 4 Est. Patient 22:24:31 LEVEL VIAL SETTER Gab Padron MD [facility] CPT-32632 Level 3 Est. Patient 18:33:46 LEVEL VIAL SETTER Gab Padron MD [facility] CPT-77685 Level 3 Est. Patient 16:19:11 CDT [facility] CPT-16730 Level 3 Est. Patient 18:59:14 CDT Yolande Lindsay MD [facility]-88464 Level 4 Est. Patient 21:29:26 CDT Yolande Lindsay MD [facility]-25190 Level 3 Est. Patient 07:37:45 CDT Yolande Lindsay MD [facility]-63777 Level 3 Est. Patient 17:03:46 CDT Yolande Lindsay MD [facility]-37128 Level 4 Est. Patient 20:02:13 LEVEL VIAL SETTER Yolande Lindsay MD [facility]-32121 Level 3 Est. Patient 16:02:07 LEVEL VIAL SETTER Alexis Ordaz MD [facility]-91024 Level 3 Est. Patient 12:41:24 LEVEL VIAL SETTER Yolande Lindsay MD [facility]-17942 Level 3 Est. Patient 15:41:20 LEVEL VIAL SETTER Yolande Lindsay MD [facility]-17965 Level 3 Est. Patient 13:20:02 LEVEL VIAL SETTER Yolande Lindsay MD [facility]-98190 Level 3 Est. Patient 15:00:38 CDT Jared Og MD [facility]-41841 Level 3 Est. Patient 10:22:32 CDT Yolande Lindsay [facility] CPT-10308 Level 3 Est. Patient 17:12:58 CDT Yolande Lindsay MD [facility]-62147 Level 4 Est. Patient 13:30:58 CDT Yolande Lindsay [facility] CPT-78150 Level 4 New Patient 09:02:42 CDT Jared Og MD [facility]-36354 Level 3 Est. Patient 08:19:07 CDT Yolande Lindsay MD [facility]-04688 Level 3 Est. Patient 12:00:13 LEVEL VIAL SETTER Gab Padron MD [facility]-87198 Level 3 Est. Patient 16:15:23 LEVEL VIAL SETTER Yolande Lindsay MD [facility][note 3]07104 Level 2 Est. Patient 19:47:15 CDT Yolande Lindsay MD [facility]-33575 Level 3 Est. Patient 21:38:31 CDT Yolande Lindsay MD [facility][note 3]88931 Level 3 Est. Patient 10:25:12 CDT Adiel PERAZA [facility]-24829 Level 4 Est. Patient 10:51:58 CDT Yolande Lindsay MD [facility]-94871 Level 3 Est. Patient 14:04:55 LEVEL VIAL SETTER Rodrigo Sarah [facility] [place] [place]-39801 Level 3 Est. Patient 10:46:35 LEVEL VIAL SETTER Rodrigo Sarah [facility] [place]-84229 Level 3 Est. Patient 14:24:37 LEVEL VIAL SETTER Yolande Lindsay MD [facility]-45999 Level 3 Est. Patient 17:41:58 LEVEL VIAL SETTER Yolande Lindsay MD [facility]-84259 Level 2 Est. Patient 22:01:41 LEVEL VIAL SETTER Rodrigo Sarah [facility] [place]-27793 Level 2 Est. Patient 22:01:11 LEVEL VIAL SETTER Rodrigo Sarah [facility] [place]-41541 Level 3 Est. Patient 10:12:29 LEVEL VIAL SETTER Rodrigo Sarah [facility]16271 Level 3 Est. Patient 11:05:44 CDT Alexis Ordaz MD [facility] CPT-22483 Level 3 Est. Patient 14:57:20 CDT Yolande [facility] CPT-77984 Level 3 Est. Patient 14:40:57 CDT Yolande Lindsay MD [facility] CPT-90045 Level 3 Est. Patient 20:55:40 CDT Yolande Lindsay MD [facility] CPT-34039 Level 3 Est. Patient 12:42:38 LEVEL VIAL SETTER Yolande Lindsay MD [facility] CPT-93357 Level 3 Est. Patient 11:54:49 LEVEL VIAL SETTER Des Hines MD [facility] CPT-41119 Level 3 Est. Patient 17:06:38 CDT Dewayne PERAZA [facility] Procedures Code Procedure Name Date Entry Date Standard Description CPT-31385 Venipuncture Draw Fee 08:37:59 LEVEL VIAL SETTER CPT-88213 Liver Profile - LAB USE ONLY 08:37:59 LEVEL VIAL SETTER CPT-90337 Lipid - LAB USE ONLY 08:37:58 LEVEL VIAL SETTER CPT-49669 First Vx - Ix admin via ID IM or jet injects without counseling by physician 11:52:31 CDT CPT-97675 Fluzone Preservative Free Intramuscular Suspension 11:52 :31 CDT CPT-86893 Foot, left, comp min 3V - XRAY USE ONLY 09:24:54 CDT CPT-60418 Abd single AP View - XRAY USE ONLY 11:16:17 CDT CPT-36866 T spine AP/ Lat - XRAY USE ONLY 09:34:21 CDT CPT-92713 Chest 2V Frontal and Lat - XRAY USE ONLY 10:48:51 CDT CPT-49323 LS spine comp w obliq 13:28:00 LEVEL VIAL SETTER CPT-J1040 Depo Medrol 80 mg (Methyl Prednisolone Acetate) 10:51: 28 LEVEL VIAL SETTER CPT-J1100 Decadron 8mg (Dexamethasone) 10:51:28 LEVEL VIAL SETTER CPT-10066 Abx/Therapy Injection 10:51:28 LEVEL VIAL SETTER CPT-J1100 Decadron 8mg (Dexamethasone) 21:02:30 LEVEL VIAL SETTER CPT-J1040 Depo Medrol 80 mg (Methyl Prednisolone Acetate) 21:02: 30 LEVEL VIAL SETTER [id number] Event Monitor - MC Transmission 09:12:32 CDT 08/06 [id number] Event Monitor - MC review and interp 09:12:32 CDT [id number] Event Monitor - MC recording 09:12:32 CDT CPT-27090 EKG Trac and Interp 16:50:22 CDT CPT-J1030 Depo Medrol 40 mg (Methyl Prednisolone Acetate) 17:05: 54 CDT CPT-J1100 Decadron 4mg (Dexamethasone) 17:05:54 CDT CPT-92726 Abx/Therapy Injection 17:05:54 CDT CPT-J1100 Decadron 4mg (Dexamethasone) 16:55:28 CDT CPT-J1030 Depo Medrol 40 mg (Methyl Prednisolone Acetate) 16:55: 28 CDT CPT-97395 Ankle Complete - Min 3V 15:58:50 CDT CPT-10537 Knee 3V 15:58:50 CDT CPT-61966 Hip comp min 2V 15:58:50 CDT CPT-J2270 Morphine Sulfate 10 mg 14:25:44 LEVEL VIAL SETTER CPT-J2550 Phenergan 12.5 mg (Promethazine) 14:25:44 LEVEL VIAL SETTER CPT-48295 Abx/Therapy Injection 14:25:44 LEVEL VIAL SETTER CPT-J2550 Phenergan 12.5 mg (Promethazine) 14:08:03 LEVEL VIAL SETTER CPT-J2270 Morphine Sulfate 10 mg 14:08:03 LEVEL VIAL SETTER CPT-02671 Bladder Scan 15:00:38 CDT CPT-TCMM Transitional Care Mgmt-Moderate 09:52:22 CDT CPT-J1030 Depo Medrol 40 mg (Methyl Prednisolone Acetate) 10:55: 18 CDT CPT-J1100 Decadron 4mg (Dexamethasone) 10:55:18 CDT CPT-55501 Abx/Therapy Injection 10:55:18 CDT CPT-J1030 Depo Medrol 40 mg (Methyl Prednisolone Acetate) 10:22: 32 CDT CPT-J1100 Decadron 4mg (Dexamethasone) 10:22:32 CDT CPT-37321 Postop F/U Visit 14:37:13 CDT CPT-29208 Ankle Complete - Min 3V 17:11:58 CDT CPT-06855 Foot comp min 3V 17:11:58 CDT CPT-23377 Bladder Scan 09:56:58 CDT CPT-59966 Postop F/U Visit 09:56:58 CDT CPT-94737 Cystoscopy 09:02:42 CDT CPT-06273 Bladder Scan 09:02:42 CDT CPT-38093 Abd single AP View 16:00:35 CDT CPT-72016 Administration single or combination vaccine inc oral 10 :15:43 CDT CPT-36717 Influenza split virus > age 3 10:15:43 CDT CPT-37370 Nail Avulsion 09:24:57 CDT CPT-OV Office Visit 11:15:41 CDT CPT-19559 Abx/Therapy Injection 10:51:30 CDT CPT-J3301 Kenalog 40 mg (Triamcinolone Acetonide) 10:25:12 CDT CPT-J1100 Decadron 4mg (Dexamethasone) 10:25:12 CDT CPT-08230 Anoscopy diagnostic 10:36:12 CDT CPT-OV Office Visit 15:34:31 CDT CPT-32237 Abx/Therapy Injection 08:21:15 LEVEL VIAL SETTER CPT-J1885 Toradol 60 mg (Ketorolac) 10:46:35 LEVEL VIAL SETTER CPT-OV Office Visit 19:51:16 LEVEL VIAL SETTER CPT-55467 Spec Collection and Handling Fee 14:34:18 LEVEL VIAL SETTER CPT-PV Prev. Care Visit 14:19:18 LEVEL VIAL SETTER CPT-54828 Postop F/U Visit 14:47:51 LEVEL VIAL SETTER CPT-96591 Postop F/U Visit 15:15:14 LEVEL VIAL SETTER CPT-51419 Postop F/U Visit 14:41:43 CDT CPT-90707 Postop F/U Visit 15:47:46 CDT CPT-OV Office Visit 15:27:23 CDT CPT-OV Office Visit 17:20:34 CDT CPT-45379 Abx/Therapy Injection 15:05:57 CDT CPT-J1100 Decadron 8mg (Dexamethasone) 14:44:57 CDT CPT-J1040 Depo Medrol 80 mg (Methyl Prednisolone Acetate) 14:44: 57 CDT CPT-JTINJ Joint Injection 10:17:37 CDT CPT-32503 Administration 2+ single or combination vaccines inc oral 13:01:46 LEVEL VIAL SETTER CPT-23077 Administration single or combination vaccine inc oral 13 :01:46 LEVEL VIAL SETTER CPT-03024 Pneumovax 13:01:46 LEVEL VIAL SETTER CPT-99386 Influenza split virus > age 3 13:01:46 LEVEL VIAL SETTER CPT-17273 Administration single or combination vaccine inc oral 08 :56:49 CDT CPT-74094 Tdap 08:56:49 CDT
--- OUTSIDE RECORDS SUMMARY | 2017-03-22 01:14 | XMS REPORT | Clinical Summary ---
Author Author Admin, E Organization [facility] Address Unknown Phone Unavailable Allergies, Adverse Reactions, Alerts Allergy Name Reaction Description Start Date Severity Status Provider VALENTIN Critical Active Rodrigo Fracharlottel LICENSED PHYSICAL THERAPY ASSISTANT CHLORHEXIDINE GLUCONATE tongue and gums swollen Critical Active Hoa Otto RMA NORFLEX Rash Critical Active Silvestrellina Frazell LICENSED PHYSICAL THERAPY ASSISTANT TRAZODONE HCL sees things Critical Active [...] MD Lumbago Cough 786.2 Active Jillina Tyrel LICENSED PHYSICAL THERAPY ASSISTANT Cough 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 Jillina Frazellilian LICENSED PHYSICAL THERAPY ASSISTANT 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 Anemia 285.9 Active Gab Padron MD Anemia, unspecified Conjunctivitis 372.30 Active Jillnacho Sarah APRN Conjunctivitis, unspecified Sinusitis 473.9 Active Silvestrellina Frazell LICENSED PHYSICAL THERAPY ASSISTANT Unspecified sinusitis (chronic) Nonspecific syndrome suggestive of viral illness 079.99 Active Jillina Frazell LICENSED PHYSICAL THERAPY ASSISTANT Unspecified viral infection Laryngitis 464.00 Active Jillina Frazell LICENSED PHYSICAL THERAPY ASSISTANT Acute laryngitis without mention of obstruction [...] Flank pain, left 789.09 Active Jillina Frazell LICENSED PHYSICAL THERAPY ASSISTANT Abdominal pain, other specified site; multiple sites Abdominal pain, generalized 789.07 Active Jillina Farshadzell LICENSED PHYSICAL THERAPY ASSISTANT Abdominal pain, generalized Back pain, thoracic region, left 724.1 Active Jillina Frazell LICENSED PHYSICAL THERAPY ASSISTANT Pain in thoracic spine Abdominal pain, left [...] in joint involving pelvic region and thigh ANKLE PAIN, RIGHT ICD-719.47 Inactive Yolande Lindsay [...] COCCYX ICD-724.79 Inactive Yolande Lindsay MD PhD CHEST PAIN, UNSPECIFIED ICD-786.50 Inactive Yolande Lindsay MD PhD FISSURE, ANAL [...] every 6 hrs prn pain TRAMADOL HCL 56136390918 Active Gab Padron MD Active PREDNISONE 20 MG TAB 2 tabs daily for 3 days, 1 tab daily for 3 days, 1/2 tab daily for 2 days PREDNISONE 41309960495 No Longer Active Gab Padron MD Active ZOFRAN ODT 4 MG TBDP 1 po q6hr PRN Nausea ONDANSETRON 22848709666 Active Gab Padron MD Active IBUPROFEN 600 MG TAB 1 tablet by mouth every 6 hours for 7 days, then 1 tablet every 6 hours as needed. Take with food IBUPROFEN 45393145049 Active Jillina Frazell LICENSED PHYSICAL THERAPY ASSISTANT Active BACTRIM DS 800-160 MG TAB 1 tab by mouth twice daily TRIMETHOPRIM-SULFAMETHOXAZOLE 89509475949 No Longer Active Gab Padron MD Active ADVAIR DISKUS 250-50 MCG/DOSE AEPB 1 puff BID FLUTICASONE- SALMETEROL 25090700673 Active Silvestrellnacho Sarah APRN Active LEVOTHYROXINE SODIUM 75 MCG TABS Take 1 tab daily LEVOTHYROXINE SODIUM 27681273074 No Longer Active Mariana FLEMING Active SYNTHROID 88 MCG ORAL TABS Take one by mouth daily LEVOTHYROXINE SODIUM 90566819516 Active Gab Padron MD Active CHERATUSSIN AC 100-10 MG/5ML SYRP 1 tsp by mouth every 4 hours as needed for cough GUAIFENESIN-CODEINE 80950816086 No Longer Active Gab Padron MD Active POLYTRIM 67693-4.1 UNIT/ML-% SOLN 1 gtt to affected eye q3h x 7 days POLYMYXIN B-TRIMETHOPRIM 39683458694 No Longer Active Gab Padron MD Active FLUTICASONE PROPIONATE 50 MCG/ACT SUSP 1 to 2 sprays each nostril daily 04/21 FLUTICASONE PROPIONATE 55967070645 No Longer Active Gab Padron MD Active TRILEPTAL 600 MG TABS Take one 1 tablet in Am and 1 tablet at night OXCARBAZEPINE 59328712768 Active Gab Padron MD Active CEFDINIR 300 MG CAPS 1 po BID x 10 days CEFDINIR 87427113892 No Longer Active Rodrigo Sarah APRN Active CEFTIN 500 MG TAB 1 twice a day CEFUROXIME AXETIL 71227033951 No Longer Active Gab Padron MD Active AZITHROMYCIN 250 MG TABS 2 po qd x 1 day, then 1 po qd x 4 days AZITHROMYCIN 84116032369 No Longer Active Rodrigo Sarah APRN Active CLARITIN 10 MG TAB 1 tablet by mouth daily as needed for allergies LORATADINE 19964228846 Active Rodrigo Sarah APRN Active OXYCODONE HCL 5 MG ORAL CAPS 1 TAB PO Q HS OXYCODONE HCL 46863808060 No Longer Active Rodrigo Sarah APRN Active NIASPAN 500 MG ORAL CR-TABS 1 pill nightly x 1 week, then 2 pills nightly x 1 week, then 3 pills nightly x 1 week, then 4 pills nightly NIACIN (ANTIHYPERLIPIDEMIC) 02370261558 No Longer Active Rodrigo Sarah APRN Active NIACIN 500 MG TABS 1 pill by mouth nightly x 1 week, then 2 pills x 1 week, then 3 pills x 1 week, then 4 pills nightly - take after evening meal, with applesauce or an apple NIACIN 03364386908 No Longer Active Yolande Lindsay MD PhD Active FISH OIL 1000 MG CAPS 3 pills daily OMEGA-3 FATTY ACIDS 63503808014 Active Yolande Lindsay MD PhD Active TRIAMCINOLONE ACETONIDE 0.1 % CREA apply bid sparingly to rash TRIAMCINOLONE ACETONIDE 75113139441 Active Yolande Lindsay MD PhD Active FUROSEMIDE 20 MG TAB 1 tablet by mouth daily FUROSEMIDE 30017122141 Active Tisha Lambert APRN Active LISINOPRIL 20 MG ORAL TABS 1 tab by mouth daily LISINOPRIL 91400863763 Active Tisha Lambert APRN Active FUROSEMIDE 20 MG TABS 1 pill by mouth daily, for edema FUROSEMIDE 07958225493 No Longer Active Yolande Lindsay MD PhD Active ATORVASTATIN CALCIUM 10 MG TABS 1 pill by mouth daily, for cholesterol 09/06 ATORVASTATIN CALCIUM 22843859558 Active Gab Padron MD Active CALCIUM 600+D PLUS MINERALS 600-400 MG-UNIT ORAL CHEW 1 tab by mouth daily CALCIUM CARBONATE-VIT D-MIN 87225514573 No Longer Active Yolande Lindsay MD PhD Active CYCLOBENZAPRINE HCL 10 MG TABS 1 tablet by mouth three times daily as needed for muscle spasm/pain CYCLOBENZAPRINE HCL 17085239569 Active Yolande Lindsay MD PhD Active ONDANSETRON 4 MG TBDP 1 q4h PRN nausea ONDANSETRON 73231392703 Active Yolande Lindsay MD PhD Active ADULT ASPIRIN EC LOW STRENGTH 81 MG TBEC Take 1 tablet by mouth daily 2014 ASPIRIN 06681032972 No Longer Active Yolande Lindsay MD PhD Active ZOFRAN ODT 4 MG TBDP 1 pill dissolved by mouth every 4 hours if needed for nausea ONDANSETRON 14634343464 No Longer Active Yolande Lindsay MD PhD Active CEFTIN 500 MG TAB 1 twice a day CEFUROXIME AXETIL 22282382994 No Longer Active Yolande Lindsay MD PhD Active ALBUTEROL SULFATE 0.083 % NEBU SOLN one vial per nebulizer every 4-6 hours as needed ALBUTEROL SULFATE 41806895076 No Longer Active Alexis Ordaz MD Active DOXYCYCLINE HYCLATE 100 MG CAP 1 cap by mouth twice daily DOXYCYCLINE HYCLATE 74897551144 No Longer Active Yolande Lindsay MD PhD Active CYCLOBENZAPRINE HCL 10 MG TABS 1/2 - 1 tab by mouth three times daily if needed for spasms/pain CYCLOBENZAPRINE HCL 50866972655 No Longer Active Yolande Lindsay MD PhD Active AZITHROMYCIN 250 MG TABS 2 pills on day 1, then 1 pill daily x 4 days AZITHROMYCIN 64379061961 No Longer Active Yolande Lindsay MD PhD Active XOPENEX 1.25 MG/3ML NEBU 1 neb every 4 hours if needed for cough/congestion LEVALBUTEROL HCL 39209909302 No Longer Active Yolande Lindsay MD PhD Active DOXYCYCLINE HYCLATE 100 MG TAB 1 tab twice a day for 14 days 2013 DOXYCYCLINE HYCLATE 99978496200 No Longer Active Yolande Lindsay MD PhD Active PREVACID 30 MG CPDR Take 1 tablet by mouth daily-PRN LANSOPRAZOLE 38488369703 No Longer Active Yolande Lindsay MD PhD Active PA VITAMIN D-3 2000 UNIT CAPS 1 CAP PO DAILY CHOLECALCIFEROL 44288108867 No Longer Active Yolande Lindsay MD PhD Active CEFDINIR 300 MG CAPS by mouth twice a day CEFDINIR 92428291499 No Longer Active Gab Padron MD Active TOPAMAX 50 MG TABS 1 PO twice daily TOPIRAMATE 58917817020 Active Yolande Lindsay MD PhD Active AZITHROMYCIN 250 MG TABS 2 po qd x 1 day, then 1 po qd x 4 days AZITHROMYCIN 73176493695 No Longer Active Yolande Lindsay MD PhD Active DICLOFENAC SODIUM 75 MG TBEC 1 tablet by q 12 hours PRN headaches DICLOFENAC SODIUM 07062327556 No Longer Active Yolande Lindsay MD PhD Active FLONASE 50 MCG/ACT SUSP 1 spray each nostril am and hs FLUTICASONE PROPIONATE 01037615007 No Longer Active Todd Callaway MD Active ANUSOL-HC 25 MG SUPPOSITORY 1 rectally twice a day as needed for hemorrhoids HYDROCORTISONE JAYDEN (RECTAL) 83441417784 No Longer Active Yolande Lindsay MD PhD Active ANUSOL-HC 25 MG SUPPOSITORY 1 suppository rectally each evening as needed for anal fissure HYDROCORTISONE JAYDEN (RECTAL) 34546943826 No Longer Active LONNIE Iglesias Active VALIUM 5 MG TAB 1 po 30 minutes prior to your MRI DIAZEPAM 56431769283 No Longer Active Bozena LONNIE Coleman Active METHOCARBAMOL 750 MG TABS 1 PO QID PRN METHOCARBAMOL 10513350782 No Longer Active Daphne Wetzel LICENSED PHYSICAL THERAPY ASSISTANT Active NITROSTAT 0.4 MG SUBL as directed NITROGLYCERIN 68836423929 No Longer Active Rodrigo Sarah LICENSED PHYSICAL THERAPY ASSISTANT Active ROBAXIN-750 750 MG TABS 2 four times a day for 3 days as needed for muscle spasm, then 1 four times a day as needed METHOCARBAMOL 82365097580 No Longer Active Rodrigo Sarah APRN Active HYDROCODONE-ACETAMINOPHEN 5-325 MG TABS 1 q 4-6 hrs prn HYDROCODONE-ACETAMINOPHEN 67435591696 No Longer Active Rodrigo Sarah APRN Active VERAPAMIL HCL CR 180 MG CR-TABS TAKE 1 TAB DAILY VERAPAMIL HCL 01907516706 No Longer Active Yolande Lindsay MD PhD Active BACTRIM DS 800-160 MG TAB 1 tab by mouth twice daily TRIMETHOPRIM-SULFAMETHOXAZOLE 71482893996 No Longer Active Yolande Lindsay MD PhD Active NEXIUM 40 MG PACK 1 by mouth daily ESOMEPRAZOLE MAGNESIUM 50509639370 No Longer Active Des Hines MD Active EPIPEN 2-CHARLETTE 0.3 MG/0.3ML OMARI as need for allergic reaction EPINEPHRINE 22925930325 Active Yolande Lindsay MD PhD Active NEXIUM 40 MG CPDR 1 PO Q D DAY ESOMEPRAZOLE MAGNESIUM 05408723824 No Longer Active Sadia Perry RN Active NEXIUM 40 MG PACK 1 by mouth daily NEXIUM 40 MG PACK ESOMEPRAZOLE MAGNESIUM Inactive VERAPAMIL HCL CR 180 MG CR-TABS TAKE 1 TAB DAILY VERAPAMIL HCL CR 180 MG CR-TABS VERAPAMIL HCL Inactive HYDROCODONE-ACETAMINOPHEN 5-325 MG TABS 1 q 4-6 hrs prn HYDROCODONE-ACETAMINOPHEN 5-325 MG TABS 712954 HYDROCODONE-ACETAMINOPHEN Inactive ROBAXIN-750 750 MG TABS 2 four times a day for 3 days as needed for muscle spasm, then 1 four times a day as needed ROBAXIN-750 750 MG TABS 427720 METHOCARBAMOL Inactive NITROSTAT 0.4 MG SUBL as directed NITROSTAT 0.4 MG SUBL 010889 NITROGLYCERIN Inactive METHOCARBAMOL 750 MG TABS 1 PO QID PRN METHOCARBAMOL 750 MG TABS 548245 METHOCARBAMOL Inactive VALIUM 5 MG TAB 1 po 30 minutes prior to your MRI VALIUM 5 MG TAB 892481 DIAZEPAM Inactive ANUSOL-HC 25 MG SUPPOSITORY 1 suppository rectally each evening as needed for anal fissure ANUSOL-HC 25 MG SUPPOSITORY 5094887 HYDROCORTISONE JAYDEN (RECTAL) Inactive ANUSOL-HC 25 MG SUPPOSITORY 1 rectally twice a day as needed for hemorrhoids ANUSOL-HC 25 MG SUPPOSITORY 2983528 HYDROCORTISONE JAYDEN (RECTAL) Inactive FLONASE 50 MCG/ACT SUSP 1 spray each nostril am and hs FLONASE 50 MCG/ACT SUSP FLUTICASONE PROPIONATE Inactive DICLOFENAC SODIUM 75 MG TBEC 1 tablet by q 12 hours PRN headaches DICLOFENAC SODIUM 75 MG TBEC 210473 DICLOFENAC SODIUM Inactive PA VITAMIN D-3 2000 UNIT CAPS 1 CAP PO DAILY PA VITAMIN D-3 2000 UNIT CAPS CHOLECALCIFEROL Inactive PREVACID 30 MG CPDR Take 1 tablet by mouth daily-PRN PREVACID 30 MG CPDR 962531 LANSOPRAZOLE Inactive DOXYCYCLINE HYCLATE 100 MG TAB 1 tab twice a day for 14 days 2013 DOXYCYCLINE HYCLATE 100 MG TAB 1273525 DOXYCYCLINE HYCLATE Inactive XOPENEX 1.25 MG/3ML NEBU 1 neb every 4 hours if needed for cough/congestion XOPENEX 1.25 MG/3ML NEBU 698391 LEVALBUTEROL HCL Inactive CYCLOBENZAPRINE HCL 10 MG TABS 1/2 - 1 tab by mouth three times daily if needed for spasms/pain CYCLOBENZAPRINE HCL 10 MG TABS 101504 CYCLOBENZAPRINE HCL Inactive ALBUTEROL SULFATE 0.083 % NEBU SOLN one vial per nebulizer every 4-6 hours as needed ALBUTEROL SULFATE 0.083 % NEBU SOLN 501904 ALBUTEROL SULFATE Inactive CEFTIN 500 MG TAB 1 twice a day CEFTIN 500 MG TAB 830043 CEFUROXIME AXETIL Inactive ZOFRAN ODT 4 MG TBDP 1 pill dissolved by mouth every 4 hours if needed for nausea ZOFRAN ODT 4 MG TBDP 363396 ONDANSETRON Inactive ADULT ASPIRIN EC LOW STRENGTH 81 MG TBEC Take 1 tablet by mouth daily 2014 ADULT ASPIRIN EC LOW STRENGTH 81 MG TBEC 021595 ASPIRIN Inactive CALCIUM 600+D PLUS MINERALS 600-400 [...] or an apple NIACIN 500 MG TABS 776013 NIACIN Inactive NIASPAN 500 MG ORAL CR-TABS 1 pill nightly x 1 week, then 2 pills nightly x 1 week, then 3 pills nightly x 1 week, then 4 pills nightly NIASPAN 500 MG ORAL CR-TABS NIACIN (ANTIHYPERLIPIDEMIC) Inactive OXYCODONE HCL 5 MG ORAL CAPS 1 TAB PO Q HS OXYCODONE HCL 5 MG ORAL CAPS 0125488 OXYCODONE HCL Inactive FLUTICASONE PROPIONATE 50 MCG/ACT SUSP 1 to 2 sprays each nostril daily 04/21 FLUTICASONE PROPIONATE 50 MCG/ACT SUSP 5008512 FLUTICASONE PROPIONATE Inactive POLYTRIM 16025-6.1 UNIT/ML-% SOLN 1 gtt to affected eye q3h x 7 days POLYTRIM 10490-7.1 UNIT/ML-% SOLN 989142 POLYMYXIN B- TRIMETHOPRIM Inactive CHERATUSSIN AC 100-10 MG/5ML SYRP 1 tsp by mouth every 4 hours as needed for cough CHERATUSSIN AC 100-10 MG/5ML SYRP 605277 GUAIFENESIN-CODEINE Inactive LEVOTHYROXINE SODIUM 75 MCG TABS Take 1 tab daily LEVOTHYROXINE SODIUM 75 MCG TABS 608707 LEVOTHYROXINE SODIUM Inactive BACTRIM DS 800-160 MG TAB 1 tab by mouth twice daily BACTRIM DS 800-160 MG TAB 155282 TRIMETHOPRIM-SULFAMETHOXAZOLE Inactive AZITHROMYCIN 250 MG TABS 2 po qd x 1 day, then 1 po qd x 4 days AZITHROMYCIN 250 MG TABS 7420410 AZITHROMYCIN Inactive CEFDINIR 300 MG CAPS by mouth twice a day CEFDINIR 300 MG CAPS 209061 CEFDINIR Inactive AZITHROMYCIN 250 MG TABS 2 pills on day 1, then 1 pill daily x 4 days AZITHROMYCIN 250 MG TABS 6018465 AZITHROMYCIN Inactive DOXYCYCLINE HYCLATE 100 MG CAP 1 cap by mouth twice daily DOXYCYCLINE HYCLATE 100 MG CAP 6101998 DOXYCYCLINE HYCLATE Inactive FUROSEMIDE 20 MG TABS 1 pill by mouth daily, for edema FUROSEMIDE 20 MG TABS 821902 FUROSEMIDE Inactive AZITHROMYCIN 250 MG TABS 2 po qd x 1 day, then 1 po qd x 4 days AZITHROMYCIN 250 MG TABS 3526440 AZITHROMYCIN Inactive CEFTIN 500 MG TAB 1 twice a day CEFTIN 500 MG TAB 857365 CEFUROXIME AXETIL Inactive CEFDINIR 300 MG CAPS 1 po BID x 10 days CEFDINIR 300 MG CAPS 089570 CEFDINIR Inactive BACTRIM DS 800-160 MG TAB 1 tab by mouth twice daily BACTRIM DS 800-160 MG TAB 721439 TRIMETHOPRIM-SULFAMETHOXAZOLE Inactive PREDNISONE 20 MG TAB 2 tabs daily for 3 days, 1 tab daily for 3 days, 1/2 tab daily for 2 days PREDNISONE 20 MG TAB 070205 PREDNISONE Inactive Immunizations Vaccine Administration Date Value Standard Description Seasonal influenza vaccine, injectable, containing preservative, for > 3 years old (Afluria, FluLaval, Fluzone, Fluvirin, Fluarix, Agriflu(>=18 yo)) Fluzone (>3 yrs.) [JEP451] Influenza, seasonal, injectable influenza immunization (Flu Vax) has been administered Influenza - Unspecified Formulation [CVX88] influenza virus vaccine, unspecified formulation pneumococcal immunization administered Pneumovax 23 [CVX33] pneumococcal polysaccharide vaccine, 23 valent Seasonal influenza vaccine, injectable, containing preservative, for > 3 years old (Afluria, FluLaval, Fluzone, Fluvirin, Fluarix, Agriflu(>=18 yo)) Fluzone (>3 yrs.) [FSC190] Influenza, seasonal, injectable dT (Diphtheria and Tetanus) booster given given Td(adult) unspecified formulation Boostrix (Tetanus toxoid, reduced diphtheria toxoid and acellular pertussis vaccine, adsorbed), booster Boostrix [PBI794] tetanus toxoid, reduced diphtheria toxoid, and acellular [...] Panel - Chemistry sodium, serum 142 mmol/L 746-063 4362/06/30 potassium, serum 4.4 mmol/L 3.5-5.2 chloride, serum [...] 0.80 ng/dL 0.76-1.46 sodium, serum 143 mmol/L 406-305 9475/05/02 carbon dioxide, venous blood 25.6 mmol/L 21.0-32.0 [...] PANEL - Chemistry cholesterol, serum 166 mg/dL 592-850 5210/12/06 triglyceride, serum, fasting 86 mg/dL 30-200 HDL [...] Negative mg/dL Negative sodium, serum 142 mmol/L 197-253 0573/07/18 carbon dioxide, venous blood 27.8 mmol/L 21.0-32.0 [...] negative Encounters Code Encounter Date Provider Facility CPT-85722 Level 3 Est. Patient 17:43:55 SUPERVISOR TELLERS Gab Padron MD [facility] CPT-42795 Level 3 Est. Patient 17:07:49 SUPERVISOR TELLERS Jared Og MD [facility] CPT-72280 Level 4 Est. Patient 19:55:18 SUPERVISOR TELLERS Jared Og MD [facility] CPT-06108 Level 3 Est. Patient 20:13:34 GLO Og MD [facility] CPT-62775 Level 4 Est. Patient 16:31:27 CDT Gab Padron MD [facility] CPT-10553 Level 2 Est. Patient 12:23:38 CDT Jared Og MD [facility] CPT-08325 Level 3 Est. Patient 11:01:51 CDT Gab Padron MD [facility] CPT-48428 Level 3 Est. Patient 15:27:02 CDT Jared Og MD [facility] CPT-85657 Level 4 Est. Patient 09:25:27 CDT Gab Padron MD [facility] CPT-16754 Level 3 Est. Patient 10:29:41 CDT Rodrigo Sarah [facility] CPT-52283 Level 4 Est. Patient 17:51:05 CDT Gab Padron MD [facility]-41643 Level 3 Est. Patient 14:18:08 CDT Gab Padron MD [facility] CPT-07182 Level 4 Est. Patient 10:18:54 CDT Gab Padron MD [facility] CPT-31039 Level 3 Est. Patient 11:30:07 CDT Rodrigo Sarah [facility] CPT-23103 Level 4 Est. Patient 21:02:30 SUPERVISOR TELLERS Gab Padron MD [facility] CPT-35962 Level 3 Est. Patient 11:02:19 SUPERVISOR TELLERS Gab Padron MD [facility] CPT-99608 Level 4 Est. Patient 22:24:31 SUPERVISOR TELLERS Gab Padron MD [facility] CPT-10901 Level 3 Est. Patient 18:33:46 SUPERVISOR TELLERS Gab Padron MD [facility] CPT-23460 Level 3 Est. Patient 16:19:11 CDT Yolande Lindsay MD [facility] CPT-27908 Level 3 Est. Patient 18:59:14 CDT Yolande Lindsay MD [facility] CPT-40480 Level 4 Est. Patient 21:29:26 CDT Yolande Lindsay MD [facility]-92005 Level 3 Est. Patient 07:37:45 CDT Yolande Lindsay MD [facility]-07951 Level 3 Est. Patient 17:03:46 CDT Yolande Lindsay MD [facility]-75608 Level 4 Est. Patient 20:02:13 SUPERVISOR TELLERS Yolande Lindsay MD [facility]-05944 Level 3 Est. Patient 16:02:07 SUPERVISOR TELLERS Alexis Ordaz MD [facility]-84512 Level 3 Est. Patient 12:41:24 SUPERVISOR TELLERS Yolande Lindsay MD [facility]-15513 Level 3 Est. Patient 15:41:20 SUPERVISOR TELLERS Yolande Lindsay MD [facility]-55909 Level 3 Est. Patient 13:20:02 SUPERVISOR TELLERS Yolande Lindsay MD [facility] CPT-59084 Level 3 Est. Patient 15:00:38 CDT Jared Og MD [facility]-05574 Level 3 Est. Patient 10:22:32 CDT Yolande Lindsay MD [facility]-06846 Level 3 Est. Patient 17:12:58 CDT Yolande Lindsay MD [facility] CPT-88132 Level 4 Est. Patient 13:30:58 CDT oYlande Lindsay MD [facility] CPT-95009 Level 4 New Patient 09:02:42 CDT Jared Og MD [facility]-41152 Level 3 Est. Patient 08:19:07 CDT Yolande Lindsay MD [facility]-28229 Level 3 Est. Patient 12:00:13 SUPERVISOR TELLERS Gab Padron MD [facility]-24141 Level 3 Est. Patient 16:15:23 SUPERVISOR TELLERS Yolande Lindsay MD [facility]-90654 Level 2 Est. Patient 19:47:15 CDT Yolande Lindsay MD [facility]-23445 Level 3 Est. Patient 21:38:31 CDT Yolande Lindsay MD [facility]-92270 Level 3 Est. Patient 10:25:12 CDT Adiel PERAZA [facility] CPT-97929 Level 4 Est. Patient 10:51:58 CDT Yolande Lindsay MD [facility]-75851 Level 3 Est. Patient 14:04:55 SUPERVISOR TELLERS Rodrigo Sarah [facility]-71827 Level 3 Est. Patient 10:46:35 SUPERVISOR TELLERS Rodrigo Sarah [facility] CPT-49903 Level 3 Est. Patient 14:24:37 SUPERVISOR TELLERS Yolande Lindsay MD [facility]-79585 Level 3 Est. Patient 17:41:58 SUPERVISOR TELLERS Yolande Lindsay MD [facility]-80918 Level 2 Est. Patient 22:01:41 SUPERVISOR TELLERS Rodrigo Sarah [facility] CPT-16390 Level 2 Est. Patient 22:01:11 SUPERVISOR TELLERS Rodrigo Sarah [facility] CPT-57272 Level 3 Est. Patient 10:12:29 SUPERVISOR TELLERS Rodrigo Sarah [facility]-66563 Level 3 Est. Patient 11:05:44 CDT Alexis Ordaz MD [facility]-79794 Level 3 Est. Patient 14:57:20 CDT Yolande Lindsay MD [facility] CPT-12485 Level 3 Est. Patient 14:40:57 CDT Yolande Lindsay MD PhD [facility] CPT-78637 Level 3 Est. Patient 20:55:40 CDT Yolande Lindsay MD [facility] CPT-94604 Level 3 Est. Patient 12:42:38 SUPERVISOR TELLERS Yolande Lindsay MD [facility] CPT-04048 Level 3 Est. Patient 11:54:49 SUPERVISOR TELLERS Des Hines MD [facility] CPT-97191 Level 3 Est. Patient 17:06:38 CDT Dewayne PERAZA [facility] Procedures Code Procedure Name Date Entry Date Standard Description CPT-26369 Hip, complete, 2-3 views - XRAY USE ONLY 17:19:04 SUPERVISOR TELLERS CPT-28255 Venipuncture Draw Fee 08:37:59 SUPERVISOR TELLERS CPT-36187 Liver Profile - LAB USE ONLY 08:37:59 SUPERVISOR TELLERS CPT-66178 Lipid - LAB USE ONLY 08:37:58 SUPERVISOR TELLERS CPT-63720 First Vx - Ix admin via ID IM or jet injects without counseling by physician 11:52:31 CDT CPT-48727 Fluzone Preservative Free Intramuscular Suspension 11:52 :31 CDT CPT-90601 Foot, left, comp min 3V - XRAY USE ONLY 09:24:54 CDT CPT-87755 Abd single AP View - XRAY USE ONLY 11:16:17 CDT CPT-83915 T spine AP/ Lat - XRAY USE ONLY 09:34:21 CDT CPT-57022 Chest 2V Frontal and Lat - XRAY USE ONLY 10:48:51 CDT CPT-30822 LS spine comp w obliq 13:28:00 SUPERVISOR TELLERS CPT-J1040 Depo Medrol 80 mg (Methyl Prednisolone Acetate) 10:51: 28 SUPERVISOR TELLERS CPT-J1100 Decadron 8mg (Dexamethasone) 10:51:28 SUPERVISOR TELLERS CPT-68819 Abx/Therapy Injection 10:51:28 SUPERVISOR TELLERS CPT-J1100 Decadron 8mg (Dexamethasone) 21:02:30 SUPERVISOR TELLERS CPT-J1040 Depo Medrol 80 mg (Methyl Prednisolone Acetate) 21:02: 30 SUPERVISOR TELLERS [id number] Event Monitor - MC Transmission 09:12:32 CDT 08/06 [id number] Event Monitor - MC review and interp 09:12:32 CDT [id number] Event Monitor - MC recording 09:12:32 CDT CPT-45044 EKG Trac and Interp 16:50:22 CDT CPT-J1030 Depo Medrol 40 mg (Methyl Prednisolone Acetate) 17:05: 54 CDT CPT-J1100 Decadron 4mg (Dexamethasone) 17:05:54 CDT CPT-27274 Abx/Therapy Injection 17:05:54 CDT CPT-J1100 Decadron 4mg (Dexamethasone) 16:55:28 CDT CPT-J1030 Depo Medrol 40 mg (Methyl Prednisolone Acetate) 16:55: 28 CDT CPT-41730 Ankle Complete - Min 3V 15:58:50 CDT CPT-71060 Knee 3V 15:58:50 CDT CPT-07996 Hip comp min 2V 15:58:50 CDT CPT-J2270 Morphine Sulfate 10 mg 14:25:44 SUPERVISOR TELLERS CPT-J2550 Phenergan 12.5 mg (Promethazine) 14:25:44 SUPERVISOR TELLERS CPT-64440 Abx/Therapy Injection 14:25:44 SUPERVISOR TELLERS CPT-J2550 Phenergan 12.5 mg (Promethazine) 14:08:03 SUPERVISOR TELLERS CPT-J2270 Morphine Sulfate 10 mg 14:08:03 SUPERVISOR TELLERS CPT-55396 Bladder Scan 15:00:38 CDT CPT-TCMM Transitional Care Mgmt-Moderate 09:52:22 CDT CPT-J1030 Depo Medrol 40 mg (Methyl Prednisolone Acetate) 10:55: 18 CDT CPT-J1100 Decadron 4mg (Dexamethasone) 10:55:18 CDT CPT-31608 Abx/Therapy Injection 10:55:18 CDT CPT-J1030 Depo Medrol 40 mg (Methyl Prednisolone Acetate) 10:22: 32 CDT CPT-J1100 Decadron 4mg (Dexamethasone) 10:22:32 CDT CPT-52645 Postop F/U Visit 14:37:13 CDT CPT-46503 Ankle Complete - Min 3V 17:11:58 CDT CPT-70414 Foot comp min 3V 17:11:58 CDT CPT-55519 Bladder Scan 09:56:58 CDT CPT-52233 Postop F/U Visit 09:56:58 CDT CPT-77375 Cystoscopy 09:02:42 CDT CPT-35461 Bladder Scan 09:02:42 CDT CPT-36123 Abd single AP View 16:00:35 CDT CPT-20119 Administration single or combination vaccine inc oral 10 :15:43 CDT CPT-58037 Influenza split virus > age 3 10:15:43 CDT CPT-99801 Nail Avulsion 09:24:57 CDT CPT-OV Office Visit 11:15:41 CDT CPT-98899 Abx/Therapy Injection 10:51:30 CDT CPT-J3301 Kenalog 40 mg (Triamcinolone Acetonide) 10:25:12 CDT CPT-J1100 Decadron 4mg (Dexamethasone) 10:25:12 CDT CPT-43749 Anoscopy diagnostic 10:36:12 CDT CPT-OV Office Visit 15:34:31 CDT CPT-91674 Abx/Therapy Injection 08:21:15 SUPERVISOR TELLERS CPT-J1885 Toradol 60 mg (Ketorolac) 10:46:35 SUPERVISOR TELLERS CPT-OV Office Visit 19:51:16 SUPERVISOR TELLERS CPT-96581 Spec Collection and Handling Fee 14:34:18 SUPERVISOR TELLERS CPT-PV Prev. Care Visit 14:19:18 SUPERVISOR TELLERS CPT-15270 Postop F/U Visit 14:47:51 SUPERVISOR TELLERS CPT-69704 Postop F/U Visit 15:15:14 SUPERVISOR TELLERS CPT-87134 Postop F/U Visit 14:41:43 CDT CPT-06683 Postop F/U Visit 15:47:46 CDT CPT-OV Office Visit 15:27:23 CDT CPT-OV Office Visit 17:20:34 CDT CPT-74499 Abx/Therapy Injection 15:05:57 CDT CPT-J1100 Decadron 8mg (Dexamethasone) 14:44:57 CDT CPT-J1040 Depo Medrol 80 mg (Methyl Prednisolone Acetate) 14:44: 57 CDT CPT-JTINJ Joint Injection 10:17:37 CDT CPT-10009 Administration 2+ single or combination vaccines inc oral 13:01:46 SUPERVISOR TELLERS CPT-52737 Administration single or combination vaccine inc oral 13 :01:46 SUPERVISOR TELLERS CPT-65064 Pneumovax 13:01:46 SUPERVISOR TELLERS CPT-21249 Influenza split virus > age 3 13:01:46 SUPERVISOR TELLERS CPT-04497 Administration single or combination vaccine inc oral 08 :56:49 CDT CPT-63434 Tdap 08:56:49 CDT
--- OUTSIDE RECORDS SUMMARY | 2017-03-22 01:17 | XMS REPORT | Clinical Summary ---
Author Author Admin, MARGRET Organization [employer] Address Unknown Phone Unavailable Allergies, Adverse Reactions, Alerts Allergy Name Reaction Description Start Date Severity Status Provider VALENTIN Critical Active Rodrigo Montemayorl RUG INSPECTOR CHLORHEXIDINE GLUCONATE tongue and gums swollen Critical Active Hoa Kabaford RMA NORFLEX Rash Critical Active Rowenaina Farshadzell RUG INSPECTOR TRAZODONE HCL sees things Critical Active [...] hx of 412 Active Hoa Otto [facility], [facility]1983 Old myocardial infarction Pelvic pain 789.09 Active Yolande Lindsay MD PhD Abdominal pain, other specified site; multiple sites Edema 782.3 Active Yolande Lindsay MD PhD Edema Rash 782.1 Active Yolande Lindsay MD PhD Rash and other nonspecific skin eruption Back pain, lumbar 724.2 Active Gab Padron MD Lumbago Cough 786.2 Active Jillina Tyrel RUG INSPECTOR Cough 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 Jillina Frazellilian ZAPATAN 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 Anemia 285.9 Active Gab Padron MD Anemia, unspecified Conjunctivitis 372.30 Active Jillnacho Sarah APRN Conjunctivitis, unspecified Sinusitis 473.9 Active Jillina Frazell RUG INSPECTOR Unspecified sinusitis (chronic) Nonspecific syndrome suggestive of viral illness 079.99 Active Jillina Siml RUG INSPECTOR Unspecified viral infection Laryngitis 464.00 Active Jillina Farshadzell RUG INSPECTOR Acute laryngitis without mention of obstruction [...] Abdominal pain, generalized 789.07 Active Silvestrellina Siml RUG INSPECTOR Abdominal pain, generalized Back pain, thoracic region, left 724.1 Active Jillina Farshadzell RUG INSPECTOR Pain in thoracic spine Abdominal pain, [...] Lindsay MD PhD INGROWN TOENAIL ICD-703.0 Inactive Yolnade Lindsay MD PhD INGROWN TOENAIL [...] 1/2 tab daily for 2 days PREDNISONE 76887771323 No Longer Active Gab Padron MD Active ZOFRAN ODT 4 MG TBDP 1 po q6hr PRN Nausea ONDANSETRON 51896540492 Active Jillina Frazell RUG INSPECTOR Active IBUPROFEN 600 MG TAB 1 tablet by mouth every 6 hours for 7 days, then 1 tablet every 6 hours as needed. Take with food IBUPROFEN 87118918451 Active Jillina Frazell RUG INSPECTOR Active BACTRIM DS 800-160 MG TAB 1 tab by mouth twice daily TRIMETHOPRIM-SULFAMETHOXAZOLE 01068889196 No Longer Active Gab Padron MD Active ADVAIR DISKUS 250-50 MCG/DOSE AEPB 1 puff BID FLUTICASONE- SALMETEROL 60505734782 Active Rodrigo Sarah APRN Active LEVOTHYROXINE SODIUM 75 MCG TABS Take 1 tab daily LEVOTHYROXINE SODIUM 93493396125 No Longer Active Mariana FLEMING Active SYNTHROID 88 MCG ORAL TABS Take one by mouth daily LEVOTHYROXINE SODIUM 03705768816 Active Mariana FLEMING Active CHERATUSSIN AC 100-10 MG/5ML SYRP 1 tsp by mouth every 4 hours as needed for cough GUAIFENESIN-CODEINE 11440119171 No Longer Active Gab Padron MD Active POLYTRIM 40739-7.1 UNIT/ML-% SOLN 1 gtt to affected eye q3h x 7 days POLYMYXIN B-TRIMETHOPRIM 15694753786 No Longer Active Gab Padron MD Active FLUTICASONE PROPIONATE 50 MCG/ACT SUSP 1 to 2 sprays each nostril daily 04/21 FLUTICASONE PROPIONATE 63051659262 No Longer Active Gab Padron MD Active TRILEPTAL 600 MG TABS Take one 1 tablet in Am and 1 tablet at night OXCARBAZEPINE 54352952633 Active Gab Padron MD Active CEFDINIR 300 MG CAPS 1 po BID x 10 days CEFDINIR 79197935048 No Longer Active Rodrigo Sarah APRN Active CEFTIN 500 MG TAB 1 twice a day CEFUROXIME AXETIL 17453897420 No Longer Active Gab Padron MD Active AZITHROMYCIN 250 MG TABS 2 po qd x 1 day, then 1 po qd x 4 days AZITHROMYCIN 36087061438 No Longer Active Rodrigo Sarah APRN Active CLARITIN 10 MG TAB 1 tablet by mouth daily as needed for allergies LORATADINE 39939202355 Active Rodrigo Sarah APRN Active OXYCODONE HCL 5 MG ORAL CAPS 1 TAB PO Q HS OXYCODONE HCL 70718219317 No Longer Active Rodrigo Sarah APRN Active NIASPAN 500 MG ORAL CR-TABS 1 pill nightly x 1 week, then 2 pills nightly x 1 week, then 3 pills nightly x 1 week, then 4 pills nightly NIACIN (ANTIHYPERLIPIDEMIC) 10419028869 No Longer Active Rodrigo Sarah APRN Active NIACIN 500 MG TABS 1 pill by mouth nightly x 1 week, then 2 pills x 1 week, then 3 pills x 1 week, then 4 pills nightly - take after evening meal, with applesauce or an apple NIACIN 98666116947 No Longer Active Yolande Lindsay MD PhD Active FISH OIL 1000 MG CAPS 3 pills daily OMEGA-3 FATTY ACIDS 85377720700 Active Yolande Lindsay MD PhD Active TRIAMCINOLONE ACETONIDE 0.1 % CREA apply bid sparingly to rash TRIAMCINOLONE ACETONIDE 91025212305 Active Yolande Lindsay MD PhD Active FUROSEMIDE 20 MG TAB 1 tablet by mouth daily FUROSEMIDE 36553926566 Active Tisha Lambert APRN Active LISINOPRIL 20 MG ORAL TABS 1 tab by mouth daily LISINOPRIL 53959475305 Active Gab Padron MD Active FUROSEMIDE 20 MG TABS 1 pill by mouth daily, for edema FUROSEMIDE 84396260043 No Longer Active Yolande Lindsay MD PhD Active ATORVASTATIN CALCIUM 10 MG TABS 1 pill by mouth daily, for cholesterol 09/06 ATORVASTATIN CALCIUM 31979906493 Active Gab Padron MD Active CALCIUM 600+D PLUS MINERALS 600-400 MG-UNIT ORAL CHEW 1 tab by mouth daily CALCIUM CARBONATE-VIT D-MIN 54585187406 No Longer Active Yolande Lindsay MD PhD Active CYCLOBENZAPRINE HCL 10 MG TABS 1 tablet by mouth three times daily as needed for muscle spasm/pain CYCLOBENZAPRINE HCL 01591270701 Active Yolande Lindsay MD PhD Active ONDANSETRON 4 MG TBDP 1 q4h PRN nausea ONDANSETRON 36993071300 Active Yolande Lindsay MD PhD Active ADULT ASPIRIN EC LOW STRENGTH 81 MG TBEC Take 1 tablet by mouth daily 2014 ASPIRIN 82959868982 No Longer Active Yolande Lindsay MD PhD Active ZOFRAN ODT 4 MG TBDP 1 pill dissolved by mouth every 4 hours if needed for nausea ONDANSETRON 18900567693 No Longer Active Yolande Lindsay MD PhD Active CEFTIN 500 MG TAB 1 twice a day CEFUROXIME AXETIL 94672869835 No Longer Active Yolande Lindsay MD PhD Active ALBUTEROL SULFATE 0.083 % NEBU SOLN one vial per nebulizer every 4-6 hours as needed ALBUTEROL SULFATE 02761516731 No Longer Active Alexis Ordaz MD Active DOXYCYCLINE HYCLATE 100 MG CAP 1 cap by mouth twice daily DOXYCYCLINE HYCLATE 66259975288 No Longer Active Yolande Lindsay MD PhD Active CYCLOBENZAPRINE HCL 10 MG TABS 1/2 - 1 tab by mouth three times daily if needed for spasms/pain CYCLOBENZAPRINE HCL 02782003464 No Longer Active Yolande Lindsay MD PhD Active AZITHROMYCIN 250 MG TABS 2 pills on day 1, then 1 pill daily x 4 days AZITHROMYCIN 65205086332 No Longer Active Yolande Lindsay MD PhD Active XOPENEX 1.25 MG/3ML NEBU 1 neb every 4 hours if needed for cough/congestion LEVALBUTEROL HCL 99523389021 No Longer Active Yolande Lindsay MD PhD Active DOXYCYCLINE HYCLATE 100 MG TAB 1 tab twice a day for 14 days 2013 DOXYCYCLINE HYCLATE 19129985764 No Longer Active Yolande Lindsay MD PhD Active PREVACID 30 MG CPDR Take 1 tablet by mouth daily-PRN LANSOPRAZOLE 67806943690 No Longer Active Yolande Lindsay MD PhD Active PA VITAMIN D-3 2000 UNIT CAPS 1 CAP PO DAILY CHOLECALCIFEROL 60674812872 No Longer Active Yolande Lindsay MD PhD Active CEFDINIR 300 MG CAPS by mouth twice a day CEFDINIR 42133366660 No Longer Active Gab Padron MD Active TOPAMAX 50 MG TABS 1 PO twice daily TOPIRAMATE 11955944414 Active Yolande Lindsay MD PhD Active AZITHROMYCIN 250 MG TABS 2 po qd x 1 day, then 1 po qd x 4 days AZITHROMYCIN 35963655285 No Longer Active Yolande Lindsay MD PhD Active DICLOFENAC SODIUM 75 MG TBEC 1 tablet by q 12 hours PRN headaches DICLOFENAC SODIUM 10452595558 No Longer Active Yolande Lindsay MD PhD Active FLONASE 50 MCG/ACT SUSP 1 spray each nostril am and hs FLUTICASONE PROPIONATE 44165906969 No Longer Active Todd Callaway MD Active ANUSOL-HC 25 MG SUPPOSITORY 1 rectally twice a day as needed for hemorrhoids HYDROCORTISONE JAYDEN (RECTAL) 75386011260 No Longer Active Yolande Lindsay MD PhD Active ANUSOL-HC 25 MG SUPPOSITORY 1 suppository rectally each evening as needed for anal fissure HYDROCORTISONE JAYDEN (RECTAL) 59158090657 No Longer Active LONNIE Iglesias Active VALIUM 5 MG TAB 1 po 30 minutes prior to your MRI DIAZEPAM 04401244966 No Longer Active LONNIE Iglesias Active METHOCARBAMOL 750 MG TABS 1 PO QID PRN METHOCARBAMOL 83049798120 No Longer Active Daphne Wetzel RUG INSPECTOR Active NITROSTAT 0.4 MG SUBL as directed NITROGLYCERIN 21739026340 No Longer Active Rodrigo Montemayorl RUG INSPECTOR Active ROBAXIN-750 750 MG TABS 2 four times a day for 3 days as needed for muscle spasm, then 1 four times a day as needed METHOCARBAMOL 19247155664 No Longer Active Silvestrellnacho Sarah APRN Active HYDROCODONE-ACETAMINOPHEN 5-325 MG TABS 1 q 4-6 hrs prn HYDROCODONE-ACETAMINOPHEN 57805169713 No Longer Active Silvestrellina Tyrel ZAPATAN Active VERAPAMIL HCL CR 180 MG CR-TABS TAKE 1 TAB DAILY VERAPAMIL HCL 58516027369 No Longer Active Yolande Lindsay MD PhD Active BACTRIM DS 800-160 MG TAB 1 tab by mouth twice daily TRIMETHOPRIM-SULFAMETHOXAZOLE 70851357010 No Longer Active Yolande Lindsay MD PhD Active NEXIUM 40 MG PACK 1 by mouth daily ESOMEPRAZOLE MAGNESIUM 65234829805 No Longer Active Des Hines MD Active EPIPEN 2-CHARLETTE 0.3 MG/0.3ML OMARI as need for allergic reaction EPINEPHRINE 58443689790 Active Yolande Lindsay MD PhD Active NEXIUM 40 MG CPDR 1 PO Q D DAY ESOMEPRAZOLE MAGNESIUM 33512185390 No Longer Active Sadia Perry RN Active NEXIUM 40 MG PACK 1 by mouth daily NEXIUM 40 MG PACK ESOMEPRAZOLE MAGNESIUM Inactive VERAPAMIL HCL CR 180 MG CR-TABS TAKE 1 TAB DAILY VERAPAMIL HCL CR 180 MG CR-TABS VERAPAMIL HCL Inactive HYDROCODONE-ACETAMINOPHEN 5-325 MG TABS 1 q 4-6 hrs prn HYDROCODONE-ACETAMINOPHEN 5-325 MG TABS 054883 HYDROCODONE-ACETAMINOPHEN Inactive ROBAXIN-750 750 MG TABS 2 four times a day for 3 days as needed for muscle spasm, then 1 four times a day as needed ROBAXIN-750 750 MG TABS 899849 METHOCARBAMOL Inactive NITROSTAT 0.4 MG SUBL as directed NITROSTAT 0.4 MG SUBL 943106 NITROGLYCERIN Inactive METHOCARBAMOL 750 MG TABS 1 PO QID PRN METHOCARBAMOL 750 MG TABS 412098 METHOCARBAMOL Inactive VALIUM 5 MG TAB 1 po 30 minutes prior to your MRI VALIUM 5 MG TAB 609351 DIAZEPAM Inactive ANUSOL-HC 25 MG SUPPOSITORY 1 suppository rectally each evening as needed for anal fissure ANUSOL-HC 25 MG SUPPOSITORY 7017609 HYDROCORTISONE JAYDEN (RECTAL) Inactive ANUSOL-HC 25 MG SUPPOSITORY 1 rectally twice a day as needed for hemorrhoids ANUSOL-HC 25 MG SUPPOSITORY 4570005 HYDROCORTISONE JAYDEN (RECTAL) Inactive FLONASE 50 MCG/ACT SUSP 1 spray each nostril am and hs FLONASE 50 MCG/ACT SUSP FLUTICASONE PROPIONATE Inactive DICLOFENAC SODIUM 75 MG TBEC 1 tablet by q 12 hours PRN headaches DICLOFENAC SODIUM 75 MG TBEC 377847 DICLOFENAC SODIUM Inactive PA VITAMIN D-3 2000 UNIT CAPS 1 CAP PO DAILY PA VITAMIN D-3 2000 UNIT CAPS CHOLECALCIFEROL Inactive PREVACID 30 MG CPDR Take 1 tablet by mouth daily-PRN PREVACID 30 MG CPDR 696980 LANSOPRAZOLE Inactive DOXYCYCLINE HYCLATE 100 MG TAB 1 tab twice a day for 14 days 2013 DOXYCYCLINE HYCLATE 100 MG TAB 6875702 DOXYCYCLINE HYCLATE Inactive XOPENEX 1.25 MG/3ML NEBU 1 neb every 4 hours if needed for cough/congestion XOPENEX 1.25 MG/3ML NEBU 159095 LEVALBUTEROL HCL Inactive CYCLOBENZAPRINE HCL 10 MG TABS 1/2 - 1 tab by mouth three times daily if needed for spasms/pain CYCLOBENZAPRINE HCL 10 MG TABS 890339 CYCLOBENZAPRINE HCL Inactive ALBUTEROL SULFATE 0.083 % NEBU SOLN one vial per nebulizer every 4-6 hours as needed ALBUTEROL SULFATE 0.083 % NEBU SOLN 222723 ALBUTEROL SULFATE Inactive CEFTIN 500 MG TAB 1 twice a day CEFTIN 500 MG TAB 747492 CEFUROXIME AXETIL Inactive ZOFRAN ODT 4 MG TBDP 1 pill dissolved by mouth every 4 hours if needed for nausea ZOFRAN ODT 4 MG TBDP 532161 ONDANSETRON Inactive ADULT ASPIRIN EC LOW STRENGTH 81 MG TBEC Take 1 tablet by mouth daily 2014 ADULT ASPIRIN EC LOW STRENGTH 81 MG TBEC 429573 ASPIRIN Inactive CALCIUM 600+D PLUS MINERALS 600-400 [...] or an apple NIACIN 500 MG TABS 724101 NIACIN Inactive NIASPAN 500 MG ORAL CR-TABS 1 pill nightly x 1 week, then 2 pills nightly x 1 week, then 3 pills nightly x 1 week, then 4 pills nightly NIASPAN 500 MG ORAL CR-TABS NIACIN (ANTIHYPERLIPIDEMIC) Inactive OXYCODONE HCL 5 MG ORAL CAPS 1 TAB PO Q HS OXYCODONE HCL 5 MG ORAL CAPS 7505356 OXYCODONE HCL Inactive FLUTICASONE PROPIONATE 50 MCG/ACT SUSP 1 to 2 sprays each nostril daily 04/21 FLUTICASONE PROPIONATE 50 MCG/ACT SUSP 4998012 FLUTICASONE PROPIONATE Inactive POLYTRIM 69862-8.1 UNIT/ML-% SOLN 1 gtt to affected eye q3h x 7 days POLYTRIM 87753-0.1 UNIT/ML-% SOLN 960710 POLYMYXIN B- TRIMETHOPRIM Inactive CHERATUSSIN AC 100-10 MG/5ML SYRP 1 tsp by mouth every 4 hours as needed for cough CHERATUSSIN AC 100-10 MG/5ML SYRP 138004 GUAIFENESIN-CODEINE Inactive LEVOTHYROXINE SODIUM 75 MCG TABS Take 1 tab daily LEVOTHYROXINE SODIUM 75 MCG TABS 808757 LEVOTHYROXINE SODIUM Inactive BACTRIM DS 800-160 MG TAB 1 tab by mouth twice daily BACTRIM DS 800-160 MG TAB 844864 TRIMETHOPRIM-SULFAMETHOXAZOLE Inactive AZITHROMYCIN 250 MG TABS 2 po qd x 1 day, then 1 po qd x 4 days AZITHROMYCIN 250 MG TABS 0000554 AZITHROMYCIN Inactive CEFDINIR 300 MG CAPS by mouth twice a day CEFDINIR 300 MG CAPS 903051 CEFDINIR Inactive AZITHROMYCIN 250 MG TABS 2 pills on day 1, then 1 pill daily x 4 days AZITHROMYCIN 250 MG TABS 7008539 AZITHROMYCIN Inactive DOXYCYCLINE HYCLATE 100 MG CAP 1 cap by mouth twice daily DOXYCYCLINE HYCLATE 100 MG CAP 9902957 DOXYCYCLINE HYCLATE Inactive FUROSEMIDE 20 MG TABS 1 pill by mouth daily, for edema FUROSEMIDE 20 MG TABS 508293 FUROSEMIDE Inactive AZITHROMYCIN 250 MG TABS 2 po qd x 1 day, then 1 po qd x 4 days AZITHROMYCIN 250 MG TABS 1870577 AZITHROMYCIN Inactive CEFTIN 500 MG TAB 1 twice a day CEFTIN 500 MG TAB 294385 CEFUROXIME AXETIL Inactive CEFDINIR 300 MG CAPS 1 po BID x 10 days CEFDINIR 300 MG CAPS 103963 CEFDINIR Inactive BACTRIM DS 800-160 MG TAB 1 tab by mouth twice daily BACTRIM DS 800-160 MG TAB 959958 TRIMETHOPRIM-SULFAMETHOXAZOLE Inactive PREDNISONE 20 MG TAB 2 tabs daily for 3 days, 1 tab daily for 3 days, 1/2 tab daily for 2 days PREDNISONE 20 MG TAB 275047 PREDNISONE Inactive Immunizations Vaccine Administration Date Value Standard Description Seasonal influenza vaccine, injectable, containing preservative, for > 3 years old (Afluria, FluLaval, Fluzone, Fluvirin, Fluarix, Agriflu(>=18 yo)) Fluzone (>3 yrs.) [QKN217] Influenza, seasonal, injectable influenza immunization (Flu Vax) has been administered Influenza - Unspecified Formulation [CVX88] influenza virus vaccine, unspecified formulation Seasonal influenza vaccine, injectable, containing preservative, for > 3 years old (Afluria, FluLaval, Fluzone, Fluvirin, Fluarix, Agriflu(>=18 yo)) Fluzone (>3 yrs.) [NSI105] Influenza, seasonal, injectable pneumococcal immunization administered Pneumovax 23 [CVX33] pneumococcal polysaccharide vaccine, 23 valent dT (Diphtheria and Tetanus) booster given given Td(adult) unspecified formulation Boostrix (Tetanus toxoid, reduced diphtheria toxoid and acellular pertussis vaccine, adsorbed), booster Boostrix [XXD606] tetanus toxoid, reduced diphtheria toxoid, and acellular [...] Panel - Chemistry sodium, serum 142 mmol/L 340-350 6898/06/30 potassium, serum 4.4 mmol/L 3.5-5.2 chloride, serum [...] Rate - Chemistry sodium, serum 139 mmol/L 184-979 3252/03/24 carbon dioxide, venous blood 22.4 mmol/L 21.0-32.0 [...] ... - Chemistry sodium, serum 143 mmol/L 825-836 6447/05/02 carbon dioxide, venous blood 25.6 mmol/L 21.0-32.0 [...] dipstick Negative Negative sodium, serum 142 mmol/L 847-430 3907/07/18 carbon dioxide, venous blood 27.8 mmol/L 21.0-32.0 [...] negative Encounters Code Encounter Date Provider Facility CPT-20179 Level 4 Est. Patient 16:31:27 CDT Gab Padron MD [facility] CPT-22032 Level 2 Est. Patient 12:23:38 CDT Jared Og MD [facility] CPT-63672 Level 3 Est. Patient 11:01:51 CDT Gab Padron MD [facility] CPT-88325 Level 3 Est. Patient 15:27:02 CDT Jared Og MD [facility] CPT-38489 Level 4 Est. Patient 09:25:27 CDT Gab Padron MD [facility] CPT-34863 Level 3 Est. Patient 10:29:41 CDT Silvestrenacho Sarah [facility] CPT-76538 Level 4 Est. Patient 17:51:05 CDT Gab Padron MD [facility] CPT-38337 Level 3 Est. Patient 14:18:08 CDT Gab Padron MD [facility] CPT-11243 Level 4 Est. Patient 10:18:54 CDT Gab Padron MD [facility] CPT-91837 Level 3 Est. Patient 11:30:07 CDT Rodrigo Sarah [facility] CPT-46689 Level 4 Est. Patient 21:02:30 MIGRATION AGENT Gab Padron MD [facility] CPT-43925 Level 3 Est. Patient 11:02:19 MIGRATION AGENT Gab Padron MD [facility] CPT-06143 Level 4 Est. Patient 22:24:31 MIGRATION AGENT Gab Padron MD [facility] CPT-91126 Level 3 Est. Patient 18:33:46 MIGRATION AGENT Gab Padron MD [facility] CPT-89155 Level 3 Est. Patient 16:19:11 CDT Yolande Lindsay MD [facility]-77253 Level 3 Est. Patient 18:59:14 CDT Yolande Lindsay MD [facility]-11051 Level 4 Est. Patient 21:29:26 CDT Yolande Lindsay MD [facility]-17725 Level 3 Est. Patient 07:37:45 CDT Yolande Lindsay MD [facility]-29227 Level 3 Est. Patient 17:03:46 CDT Yolande Lindsay MD [facility]-30267 Level 4 Est. Patient 20:02:13 MIGRATION AGENT Yolande Lindsay MD [facility]-61237 Level 3 Est. Patient 16:02:07 MIGRATION AGENT Alexis Ordaz MD [facility]-35996 Level 3 Est. Patient 12:41:24 MIGRATION AGENT Yolande Lindsay MD [facility]-02109 Level 3 Est. Patient 15:41:20 MIGRATION AGENT Yolande Lindsay MD [facility]-70260 Level 3 Est. Patient 13:20:02 MIGRATION AGENT Yolande Lindsay MD [facility]-98083 Level 3 Est. Patient 15:00:38 CDT Jared Og MD [facility]-82233 Level 3 Est. Patient 10:22:32 CDT Yolande Lindsay MD [facility]-63942 Level 3 Est. Patient 17:12:58 CDT Yolande Lindsay MD [facility]-42164 Level 4 Est. Patient 13:30:58 CDT Yolande Lindsay MD [facility]-08434 Level 4 New Patient 09:02:42 CDT Jared Og MD [facility]-83521 Level 3 Est. Patient 08:19:07 CDT Yolande Lindsay MD [facility]-23990 Level 3 Est. Patient 12:00:13 MIGRATION AGENT Gab Padron MD [facility]-73460 Level 3 Est. Patient 16:15:23 MIGRATION AGENT Yolande Lindsay MD [facility]85834 Level 2 Est. Patient 19:47:15 CDT Yolande Lindsay MD [facility]03567 Level 3 Est. Patient 21:38:31 CDT Yolande Lindsay MD [facility]02733 Level 3 Est. Patient 10:25:12 CDT Adiel PERAZA [facility]-92802 Level 4 Est. Patient 10:51:58 CDT Yolande Lindsay MD [facility]-82522 Level 3 Est. Patient 14:04:55 MIGRATION AGENT Rodrigo Sarah [facility]-19477 Level 3 Est. Patient 10:46:35 MIGRATION AGENT Rodrigo Sarah [facility] [place]-40111 Level 3 Est. Patient 14:24:37 MIGRATION AGENT Yolande Lindsay MD [facility]-80447 Level 3 Est. Patient 17:41:58 MIGRATION AGENT Yolande Lindsay MD [facility]36734 Level 2 Est. Patient 22:01:41 MIGRATION AGENT Rodrigo Sarah [facility]-61129 Level 2 Est. Patient 22:01:11 MIGRATION AGENT Rodrigo Sarah [facility]-75361 Level 3 Est. Patient 10:12:29 MIGRATION AGENT Rodrigo Sarah [facility]-11289 Level 3 Est. Patient 11:05:44 CDT Alexis Ordaz MD [facility] CPT-35874 Level 3 Est. Patient 14:57:20 CDT Yolande Lindsay MD [facility] CPT-26086 Level 3 Est. Patient 14:40:57 CDT Yolande Lindsay MD [facility] CPT-98984 Level 3 Est. Patient 20:55:40 CDT Yolande Lindsay MD [facility] CPT-32600 Level 3 Est. Patient 12:42:38 MIGRATION AGENT Yolande Lindsay MD [facility] CPT-44173 Level 3 Est. Patient 11:54:49 MIGRATION AGENT Des Hines MD [facility] CPT-18816 Level 3 Est. Patient 17:06:38 CDT Dewayne PERAZA [facility] Procedures Code Procedure Name Date Entry Date Standard Description CPT-19948 Foot, left, comp min 3V - XRAY USE ONLY 09:24:54 CDT CPT-84855 Abd single AP View - XRAY USE ONLY 11:16:17 CDT CPT-16745 T spine AP/ Lat - XRAY USE ONLY 09:34:21 CDT CPT-33382 Chest 2V Frontal and Lat - XRAY USE ONLY 10:48:51 CDT CPT-40301 LS spine comp w obliq 13:28:00 MIGRATION AGENT CPT-J1040 Depo Medrol 80 mg (Methyl Prednisolone Acetate) 10:51: 28 MIGRATION AGENT CPT-J1100 Decadron 8mg (Dexamethasone) 10:51:28 MIGRATION AGENT CPT-60613 Abx/Therapy Injection 10:51:28 MIGRATION AGENT CPT-J1100 Decadron 8mg (Dexamethasone) 21:02:30 MIGRATION AGENT CPT-J1040 Depo Medrol 80 mg (Methyl Prednisolone Acetate) 21:02: 30 MIGRATION AGENT [id number] Event Monitor - MC Transmission 09:12:32 CDT 08/06 [id number] Event Monitor - MC review and interp 09:12:32 CDT [id number] Event Monitor - MC recording 09:12:32 CDT CPT-36589 EKG Trac and Interp 16:50:22 CDT CPT-J1030 Depo Medrol 40 mg (Methyl Prednisolone Acetate) 17:05: 54 CDT CPT-J1100 Decadron 4mg (Dexamethasone) 17:05:54 CDT CPT-58242 Abx/Therapy Injection 17:05:54 CDT CPT-J1100 Decadron 4mg (Dexamethasone) 16:55:28 CDT CPT-J1030 Depo Medrol 40 mg (Methyl Prednisolone Acetate) 16:55: 28 CDT CPT-35853 Ankle Complete - Min 3V 15:58:50 CDT CPT-53971 Knee 3V 15:58:50 CDT CPT-70761 Hip comp min 2V 15:58:50 CDT CPT-J2270 Morphine Sulfate 10 mg 14:25:44 MIGRATION AGENT CPT-J2550 Phenergan 12.5 mg (Promethazine) 14:25:44 MIGRATION AGENT CPT-84618 Abx/Therapy Injection 14:25:44 MIGRATION AGENT CPT-J2550 Phenergan 12.5 mg (Promethazine) 14:08:03 MIGRATION AGENT CPT-J2270 Morphine Sulfate 10 mg 14:08:03 MIGRATION AGENT CPT-76929 Bladder Scan 15:00:38 CDT CPT-TCMM Transitional Care Mgmt-Moderate 09:52:22 CDT CPT-J1030 Depo Medrol 40 mg (Methyl Prednisolone Acetate) 10:55: 18 CDT CPT-J1100 Decadron 4mg (Dexamethasone) 10:55:18 CDT CPT-25463 Abx/Therapy Injection 10:55:18 CDT CPT-J1030 Depo Medrol 40 mg (Methyl Prednisolone Acetate) 10:22: 32 CDT CPT-J1100 Decadron 4mg (Dexamethasone) 10:22:32 CDT CPT-08381 Postop F/U Visit 14:37:13 CDT CPT-24136 Ankle Complete - Min 3V 17:11:58 CDT CPT-71787 Foot comp min 3V 17:11:58 CDT CPT-75524 Bladder Scan 09:56:58 CDT CPT-17612 Postop F/U Visit 09:56:58 CDT CPT-28631 Cystoscopy 09:02:42 CDT CPT-48933 Bladder Scan 09:02:42 CDT CPT-33803 Abd single AP View 16:00:35 CDT CPT-24856 Administration single or combination vaccine inc oral 10 :15:43 CDT CPT-79177 Influenza split virus > age 3 10:15:43 CDT CPT-34833 Nail Avulsion 09:24:57 CDT CPT-OV Office Visit 11:15:41 CDT CPT-75505 Abx/Therapy Injection 10:51:30 CDT CPT-J3301 Kenalog 40 mg (Triamcinolone Acetonide) 10:25:12 CDT CPT-J1100 Decadron 4mg (Dexamethasone) 10:25:12 CDT CPT-65051 Anoscopy diagnostic 10:36:12 CDT CPT-OV Office Visit 15:34:31 CDT CPT-92693 Abx/Therapy Injection 08:21:15 MIGRATION AGENT CPT-J1885 Toradol 60 mg (Ketorolac) 10:46:35 MIGRATION AGENT CPT-OV Office Visit 19:51:16 MIGRATION AGENT CPT-73110 Spec Collection and Handling Fee 14:34:18 MIGRATION AGENT CPT-PV Prev. Care Visit 14:19:18 MIGRATION AGENT CPT-23859 Postop F/U Visit 14:47:51 MIGRATION AGENT CPT-38741 Postop F/U Visit 15:15:14 MIGRATION AGENT CPT-74968 Postop F/U Visit 14:41:43 CDT CPT-06544 Postop F/U Visit 15:47:46 CDT CPT-OV Office Visit 15:27:23 CDT CPT-OV Office Visit 17:20:34 CDT CPT-68535 Abx/Therapy Injection 15:05:57 CDT CPT-J1100 Decadron 8mg (Dexamethasone) 14:44:57 CDT CPT-J1040 Depo Medrol 80 mg (Methyl Prednisolone Acetate) 14:44: 57 CDT CPT-JTINJ Joint Injection 10:17:37 CDT CPT-45077 Administration 2+ single or combination vaccines inc oral 13:01:46 MIGRATION AGENT CPT-71989 Administration single or combination vaccine inc oral 13 :01:46 MIGRATION AGENT CPT-30978 Pneumovax 13:01:46 MIGRATION AGENT CPT-26609 Influenza split virus > age 3 13:01:46 MIGRATION AGENT [id number] Administration single or combination vaccine inc oral 08 :56:49 CDT [id number] Tdap 08:56:49 CDT
--- OUTSIDE RECORDS SUMMARY | 2017-03-22 01:20 | XMS REPORT | Clinical Summary ---
Author Author Admin, E Organization [facility] Address Unknown Phone Unavailable Allergies, Adverse Reactions, Alerts Allergy Name Reaction Description Start Date Severity Status Provider VALENTIN Critical Active Rodrigo Montemayorl CORRESPONDENCE COORDINATOR CHLORHEXIDINE GLUCONATE tongue and gums swollen Critical Active Hoadante Otto RMA NORFLEX Rash Critical Active Silvestrellina Frazell CORRESPONDENCE COORDINATOR TRAZODONE HCL sees things Critical Active Dewayne PERAZA PENICILLIN rash Critical Active Deawyne PERAZA Conditions or Problems Problem Name Problem [...] Lindsay MD PhD Headache SPONDYLOLISTHESIS 756.12 Active Yolaned Lindsay MD PhD Spondylolisthesis, congenital OTHER DISORDER [...] MD Lumbago Cough 786.2 Active Jillina Tyrel CORRESPONDENCE COORDINATOR Cough 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 Jillina Frazellilian CORRESPONDENCE COORDINATOR 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 Anemia 285.9 Active Gab Padron MD Anemia, unspecified Conjunctivitis 372.30 Active Jillnacho Sarah APRN Conjunctivitis, unspecified Sinusitis 473.9 Active Silvestrellina Frazell CORRESPONDENCE COORDINATOR Unspecified sinusitis (chronic) Nonspecific syndrome suggestive of viral illness 079.99 Active Jillina Frazell CORRESPONDENCE COORDINATOR Unspecified viral infection Laryngitis 464.00 Active Jillina Frazell CORRESPONDENCE COORDINATOR Acute laryngitis without mention of obstruction [...] Flank pain, left 789.09 Active Jillina Frazell CORRESPONDENCE COORDINATOR Abdominal pain, other specified site; multiple sites Abdominal pain, generalized 789.07 Active Jillina Farshadzell CORRESPONDENCE COORDINATOR Abdominal pain, generalized Back pain, thoracic region, left 724.1 Active Jillina Frazell CORRESPONDENCE COORDINATOR Pain in thoracic spine Abdominal pain, [...] Calcaneal spur Breast tenderness 611.71 Active Gab Pardon MD Mastodynia Routine gynecological examination V72.31 Active [...] 1/2 tab daily for 2 days PREDNISONE 09652559002 No Longer Active Gab Padron MD Active ZOFRAN ODT 4 MG TBDP 1 po q6hr PRN Nausea ONDANSETRON 79536745672 Active Jillina Frazell CORRESPONDENCE COORDINATOR Active IBUPROFEN 600 MG TAB 1 tablet by mouth every 6 hours for 7 days, then 1 tablet every 6 hours as needed. Take with food IBUPROFEN 89343771862 Active Jillina Frazell CORRESPONDENCE COORDINATOR Active BACTRIM DS 800-160 MG TAB 1 tab by mouth twice daily TRIMETHOPRIM-SULFAMETHOXAZOLE 96850776541 No Longer Active Gab Padron MD Active ADVAIR DISKUS 250-50 MCG/DOSE AEPB 1 puff BID FLUTICASONE- SALMETEROL 25987641536 Active Rodrigo Sarah APRN Active LEVOTHYROXINE SODIUM 75 MCG TABS Take 1 tab daily LEVOTHYROXINE SODIUM 48315194745 No Longer Active Mariana FLEMING Active SYNTHROID 88 MCG ORAL TABS Take one by mouth daily LEVOTHYROXINE SODIUM 51052424380 Active Mariana FLEMING Active CHERATUSSIN AC 100-10 MG/5ML SYRP 1 tsp by mouth every 4 hours as needed for cough GUAIFENESIN-CODEINE 40222644132 No Longer Active Gab Padron MD Active POLYTRIM 87336-0.1 UNIT/ML-% SOLN 1 gtt to affected eye q3h x 7 days POLYMYXIN B-TRIMETHOPRIM 63407270326 No Longer Active Gab Padron MD Active FLUTICASONE PROPIONATE 50 MCG/ACT SUSP 1 to 2 sprays each nostril daily 04/21 FLUTICASONE PROPIONATE 06165094295 No Longer Active Gab Padron MD Active TRILEPTAL 600 MG TABS Take one 1 tablet in Am and 1 tablet at night OXCARBAZEPINE 87751469737 Active Gab Padron MD Active CEFDINIR 300 MG CAPS 1 po BID x 10 days CEFDINIR 68090614639 No Longer Active Rodrigo Sarah APRN Active CEFTIN 500 MG TAB 1 twice a day CEFUROXIME AXETIL 79895410899 No Longer Active Gab Padron MD Active AZITHROMYCIN 250 MG TABS 2 po qd x 1 day, then 1 po qd x 4 days AZITHROMYCIN 86261788904 No Longer Active Rodrigo Sarah APRN Active CLARITIN 10 MG TAB 1 tablet by mouth daily as needed for allergies LORATADINE 20675508047 Active Rodrigo Sarah APRN Active OXYCODONE HCL 5 MG ORAL CAPS 1 TAB PO Q HS OXYCODONE HCL 30475610290 No Longer Active Rodrigo Sarah APRN Active NIASPAN 500 MG ORAL CR-TABS 1 pill nightly x 1 week, then 2 pills nightly x 1 week, then 3 pills nightly x 1 week, then 4 pills nightly NIACIN (ANTIHYPERLIPIDEMIC) 24243996428 No Longer Active Rodrigo Sarah APRN Active NIACIN 500 MG TABS 1 pill by mouth nightly x 1 week, then 2 pills x 1 week, then 3 pills x 1 week, then 4 pills nightly - take after evening meal, with applesauce or an apple NIACIN 86832150898 No Longer Active Yolande Lindsay MD PhD Active FISH OIL 1000 MG CAPS 3 pills daily OMEGA-3 FATTY ACIDS 50157573970 Active Yolande Lindsay MD PhD Active TRIAMCINOLONE ACETONIDE 0.1 % CREA apply bid sparingly to rash TRIAMCINOLONE ACETONIDE 35119785975 Active Yolande Lindsay MD PhD Active FUROSEMIDE 20 MG TAB 1 tablet by mouth daily FUROSEMIDE 25679350747 Active Tisha Lambert APRN Active LISINOPRIL 20 MG ORAL TABS 1 tab by mouth daily LISINOPRIL 48530201646 Active Gab Padron MD Active FUROSEMIDE 20 MG TABS 1 pill by mouth daily, for edema FUROSEMIDE 23900200362 No Longer Active Yolande Lindsay MD PhD Active ATORVASTATIN CALCIUM 10 MG TABS 1 pill by mouth daily, for cholesterol 09/06 ATORVASTATIN CALCIUM 84800398620 Active Gab Padron MD Active CALCIUM 600+D PLUS MINERALS 600-400 MG-UNIT ORAL CHEW 1 tab by mouth daily CALCIUM CARBONATE-VIT D-MIN 82276571044 No Longer Active Yolande Lindsay MD PhD Active CYCLOBENZAPRINE HCL 10 MG TABS 1 tablet by mouth three times daily as needed for muscle spasm/pain CYCLOBENZAPRINE HCL 42285746201 Active Yolande Lindsay MD PhD Active ONDANSETRON 4 MG TBDP 1 q4h PRN nausea ONDANSETRON 74495329681 Active Yolande Lindsay MD PhD Active ADULT ASPIRIN EC LOW STRENGTH 81 MG TBEC Take 1 tablet by mouth daily 2014 ASPIRIN 36727905243 No Longer Active Yolande Lindsay MD PhD Active ZOFRAN ODT 4 MG TBDP 1 pill dissolved by mouth every 4 hours if needed for nausea ONDANSETRON 25518122783 No Longer Active Yolande Lindsay MD PhD Active CEFTIN 500 MG TAB 1 twice a day CEFUROXIME AXETIL 72492743030 No Longer Active Yolande Lindsay MD PhD Active ALBUTEROL SULFATE 0.083 % NEBU SOLN one vial per nebulizer every 4-6 hours as needed ALBUTEROL SULFATE 34195928144 No Longer Active Alexis Ordaz MD Active DOXYCYCLINE HYCLATE 100 MG CAP 1 cap by mouth twice daily DOXYCYCLINE HYCLATE 17604325562 No Longer Active Yolande Lindsay MD PhD Active CYCLOBENZAPRINE HCL 10 MG TABS 1/2 - 1 tab by mouth three times daily if needed for spasms/pain CYCLOBENZAPRINE HCL 55215083720 No Longer Active Yolande Lindsay MD PhD Active AZITHROMYCIN 250 MG TABS 2 pills on day 1, then 1 pill daily x 4 days AZITHROMYCIN 28289690204 No Longer Active Yolande Lindsay MD PhD Active XOPENEX 1.25 MG/3ML NEBU 1 neb every 4 hours if needed for cough/congestion LEVALBUTEROL HCL 92967855802 No Longer Active Yolande Lindsay MD PhD Active DOXYCYCLINE HYCLATE 100 MG TAB 1 tab twice a day for 14 days 2013 DOXYCYCLINE HYCLATE 72189923915 No Longer Active Yolande Lindsay MD PhD Active PREVACID 30 MG CPDR Take 1 tablet by mouth daily-PRN LANSOPRAZOLE 29332066498 No Longer Active Yolande Lindsay MD PhD Active PA VITAMIN D-3 2000 UNIT CAPS 1 CAP PO DAILY CHOLECALCIFEROL 56279217527 No Longer Active Yolande Lindsay MD PhD Active CEFDINIR 300 MG CAPS by mouth twice a day CEFDINIR 14913998450 No Longer Active Gab Padron MD Active TOPAMAX 50 MG TABS 1 PO twice daily TOPIRAMATE 43218318153 Active Yolande Lindsay MD PhD Active AZITHROMYCIN 250 MG TABS 2 po qd x 1 day, then 1 po qd x 4 days AZITHROMYCIN 87087282737 No Longer Active Yolande Lindsay MD PhD Active DICLOFENAC SODIUM 75 MG TBEC 1 tablet by q 12 hours PRN headaches DICLOFENAC SODIUM 45820195541 No Longer Active Yolande Lindsay MD PhD Active FLONASE 50 MCG/ACT SUSP 1 spray each nostril am and hs FLUTICASONE PROPIONATE 66421589356 No Longer Active Todd Callaway MD Active ANUSOL-HC 25 MG SUPPOSITORY 1 rectally twice a day as needed for hemorrhoids HYDROCORTISONE JAYDEN (RECTAL) 46586567410 No Longer Active Yolande Lindsay MD PhD Active ANUSOL-HC 25 MG SUPPOSITORY 1 suppository rectally each evening as needed for anal fissure HYDROCORTISONE JAYDEN (RECTAL) 18116824617 No Longer Active LONNIE Iglesias Active VALIUM 5 MG TAB 1 po 30 minutes prior to your MRI DIAZEPAM 66457958251 No Longer Active LONNIE Iglesias Active METHOCARBAMOL 750 MG TABS 1 PO QID PRN METHOCARBAMOL 78759792052 No Longer Active Daphne Wetzel CORRESPONDENCE COORDINATOR Active NITROSTAT 0.4 MG SUBL as directed NITROGLYCERIN 03129681504 No Longer Active Rodrigo Sarah APRN Active ROBAXIN-750 750 MG TABS 2 four times a day for 3 days as needed for muscle spasm, then 1 four times a day as needed METHOCARBAMOL 68118193414 No Longer Active Rodrigo Sarah APRN Active HYDROCODONE-ACETAMINOPHEN 5-325 MG TABS 1 q 4-6 hrs prn HYDROCODONE-ACETAMINOPHEN 44065141664 No Longer Active Rodrigo Sarah APRN Active VERAPAMIL HCL CR 180 MG CR-TABS TAKE 1 TAB DAILY VERAPAMIL HCL 68671138978 No Longer Active Yolande Lindsay MD PhD Active BACTRIM DS 800-160 MG TAB 1 tab by mouth twice daily TRIMETHOPRIM-SULFAMETHOXAZOLE 07111204547 No Longer Active Yolande Lindsay MD PhD Active NEXIUM 40 MG PACK 1 by mouth daily ESOMEPRAZOLE MAGNESIUM 43708303764 No Longer Active Des Hines MD Active EPIPEN 2-CHARLETTE 0.3 MG/0.3ML OMARI as need for allergic reaction EPINEPHRINE 75918058155 Active Yolande Lindsay MD PhD Active NEXIUM 40 MG CPDR 1 PO Q D DAY ESOMEPRAZOLE MAGNESIUM 13725662336 No Longer Active Sadia Perry RN Active NEXIUM 40 MG PACK 1 by mouth daily NEXIUM 40 MG PACK ESOMEPRAZOLE MAGNESIUM Inactive VERAPAMIL HCL CR 180 MG CR-TABS TAKE 1 TAB DAILY VERAPAMIL HCL CR 180 MG CR-TABS VERAPAMIL HCL Inactive HYDROCODONE-ACETAMINOPHEN 5-325 MG TABS 1 q 4-6 hrs prn HYDROCODONE-ACETAMINOPHEN 5-325 MG TABS 963287 HYDROCODONE-ACETAMINOPHEN Inactive ROBAXIN-750 750 MG TABS 2 four times a day for 3 days as needed for muscle spasm, then 1 four times a day as needed ROBAXIN-750 750 MG TABS 517038 METHOCARBAMOL Inactive NITROSTAT 0.4 MG SUBL as directed NITROSTAT 0.4 MG SUBL 864934 NITROGLYCERIN Inactive METHOCARBAMOL 750 MG TABS 1 PO QID PRN METHOCARBAMOL 750 MG TABS 608344 METHOCARBAMOL Inactive VALIUM 5 MG TAB 1 po 30 minutes prior to your MRI VALIUM 5 MG TAB 828330 DIAZEPAM Inactive ANUSOL-HC 25 MG SUPPOSITORY 1 suppository rectally each evening as needed for anal fissure ANUSOL-HC 25 MG SUPPOSITORY 6065838 HYDROCORTISONE JAYDEN (RECTAL) Inactive ANUSOL-HC 25 MG SUPPOSITORY 1 rectally twice a day as needed for hemorrhoids ANUSOL-HC 25 MG SUPPOSITORY 4425993 HYDROCORTISONE JAYDEN (RECTAL) Inactive FLONASE 50 MCG/ACT SUSP 1 spray each nostril am and hs FLONASE 50 MCG/ACT SUSP FLUTICASONE PROPIONATE Inactive DICLOFENAC SODIUM 75 MG TBEC 1 tablet by q 12 hours PRN headaches DICLOFENAC SODIUM 75 MG TBEC 905059 DICLOFENAC SODIUM Inactive PA VITAMIN D-3 2000 UNIT CAPS 1 CAP PO DAILY PA VITAMIN D-3 2000 UNIT CAPS CHOLECALCIFEROL Inactive PREVACID 30 MG CPDR Take 1 tablet by mouth daily-PRN PREVACID 30 MG CPDR 721795 LANSOPRAZOLE Inactive DOXYCYCLINE HYCLATE 100 MG TAB 1 tab twice a day for 14 days 2013 DOXYCYCLINE HYCLATE 100 MG TAB 4713224 DOXYCYCLINE HYCLATE Inactive XOPENEX 1.25 MG/3ML NEBU 1 neb every 4 hours if needed for cough/congestion XOPENEX 1.25 MG/3ML NEBU 701587 LEVALBUTEROL HCL Inactive CYCLOBENZAPRINE HCL 10 MG TABS 1/2 - 1 tab by mouth three times daily if needed for spasms/pain CYCLOBENZAPRINE HCL 10 MG TABS 506177 CYCLOBENZAPRINE HCL Inactive ALBUTEROL SULFATE 0.083 % NEBU SOLN one vial per nebulizer every 4-6 hours as needed ALBUTEROL SULFATE 0.083 % NEBU SOLN 379862 ALBUTEROL SULFATE Inactive CEFTIN 500 MG TAB 1 twice a day CEFTIN 500 MG TAB 248038 CEFUROXIME AXETIL Inactive ZOFRAN ODT 4 MG TBDP 1 pill dissolved by mouth every 4 hours if needed for nausea ZOFRAN ODT 4 MG TBDP 374836 ONDANSETRON Inactive ADULT ASPIRIN EC LOW STRENGTH 81 MG TBEC Take 1 tablet by mouth daily 2014 ADULT ASPIRIN EC LOW STRENGTH 81 MG TBEC 628140 ASPIRIN Inactive CALCIUM 600+D PLUS MINERALS 600-400 [...] or an apple NIACIN 500 MG TABS 670248 NIACIN Inactive NIASPAN 500 MG ORAL CR-TABS 1 pill nightly x 1 week, then 2 pills nightly x 1 week, then 3 pills nightly x 1 week, then 4 pills nightly NIASPAN 500 MG ORAL CR-TABS NIACIN (ANTIHYPERLIPIDEMIC) Inactive OXYCODONE HCL 5 MG ORAL CAPS 1 TAB PO Q HS OXYCODONE HCL 5 MG ORAL CAPS 3203614 OXYCODONE HCL Inactive FLUTICASONE PROPIONATE 50 MCG/ACT SUSP 1 to 2 sprays each nostril daily 04/21 FLUTICASONE PROPIONATE 50 MCG/ACT SUSP 8767572 FLUTICASONE PROPIONATE Inactive POLYTRIM 12428-1.1 UNIT/ML-% SOLN 1 gtt to affected eye q3h x 7 days POLYTRIM 29065-1.1 UNIT/ML-% SOLN 073328 POLYMYXIN B- TRIMETHOPRIM Inactive CHERATUSSIN AC 100-10 MG/5ML SYRP 1 tsp by mouth every 4 hours as needed for cough CHERATUSSIN AC 100-10 MG/5ML SYRP 580650 GUAIFENESIN-CODEINE Inactive LEVOTHYROXINE SODIUM 75 MCG TABS Take 1 tab daily LEVOTHYROXINE SODIUM 75 MCG TABS 119520 LEVOTHYROXINE SODIUM Inactive BACTRIM DS 800-160 MG TAB 1 tab by mouth twice daily BACTRIM DS 800-160 MG TAB 065464 TRIMETHOPRIM-SULFAMETHOXAZOLE Inactive AZITHROMYCIN 250 MG TABS 2 po qd x 1 day, then 1 po qd x 4 days AZITHROMYCIN 250 MG TABS 8884785 AZITHROMYCIN Inactive CEFDINIR 300 MG CAPS by mouth twice a day CEFDINIR 300 MG CAPS 20020708 CEFDINIR Inactive AZITHROMYCIN 250 MG TABS 2 pills on day 1, then 1 pill daily x 4 days AZITHROMYCIN 250 MG TABS 4703867 AZITHROMYCIN Inactive DOXYCYCLINE HYCLATE 100 MG CAP 1 cap by mouth twice daily DOXYCYCLINE HYCLATE 100 MG CAP 2510063 DOXYCYCLINE HYCLATE Inactive FUROSEMIDE 20 MG TABS 1 pill by mouth daily, for edema FUROSEMIDE 20 MG TABS 795812 FUROSEMIDE Inactive AZITHROMYCIN 250 MG TABS 2 po qd x 1 day, then 1 po qd x 4 days AZITHROMYCIN 250 MG TABS 3359510 AZITHROMYCIN Inactive CEFTIN 500 MG TAB 1 twice a day CEFTIN 500 MG TAB 575323 CEFUROXIME AXETIL Inactive CEFDINIR 300 MG CAPS 1 po BID x 10 days CEFDINIR 300 MG CAPS 20020708 CEFDINIR Inactive BACTRIM DS 800-160 MG TAB 1 tab by mouth twice daily BACTRIM DS 800-160 MG TAB 493198 TRIMETHOPRIM-SULFAMETHOXAZOLE Inactive PREDNISONE 20 MG TAB 2 tabs daily for 3 days, 1 tab daily for 3 days, 1/2 tab daily for 2 days PREDNISONE 20 MG TAB 353509 PREDNISONE Inactive Immunizations Vaccine Administration Date Value Standard Description Seasonal influenza vaccine, injectable, containing preservative, for > 3 years old (Afluria, FluLaval, Fluzone, Fluvirin, Fluarix, Agriflu(>=18 yo)) Fluzone (>3 yrs.) [FDG056] Influenza, seasonal, injectable influenza immunization (Flu Vax) has been administered Influenza - Unspecified Formulation [CVX88] influenza virus vaccine, unspecified formulation Seasonal influenza vaccine, injectable, containing preservative, for > 3 years old (Afluria, FluLaval, Fluzone, Fluvirin, Fluarix, Agriflu(>=18 yo)) Fluzone (>3 yrs.) [FWS069] Influenza, seasonal, injectable pneumococcal immunization administered Pneumovax 23 [CVX33] pneumococcal polysaccharide vaccine, 23 valent dT (Diphtheria and Tetanus) booster given given Td(adult) unspecified formulation Boostrix (Tetanus toxoid, reduced diphtheria toxoid and acellular pertussis vaccine, adsorbed), booster Boostrix [ANC852] tetanus toxoid, reduced diphtheria toxoid, and acellular [...] Panel - Chemistry sodium, serum 142 mmol/L 504-960 0854/06/30 potassium, serum 4.4 mmol/L 3.5-5.2 chloride, serum [...] Rate - Chemistry sodium, serum 139 mmol/L 858-458 4715/03/24 carbon dioxide, venous blood 22.4 mmol/L 21.0-32.0 [...] ... - Chemistry sodium, serum 143 mmol/L 512-900 1410/05/02 carbon dioxide, venous blood 25.6 mmol/L 21.0-32.0 [...] dipstick Negative Negative sodium, serum 142 mmol/L 019-532 1767/07/18 carbon dioxide, venous blood 27.8 mmol/L 21.0-32.0 [...] Code Encounter Date Provider Facility CPT-70853 Level 4 Est. Patient 16:31:27 CDT Gab Padron MD [facility] CPT-65569 Level 2 Est. Patient 12:23:38 CDT Jared Og MD [facility] CPT-38463 Level 3 Est. Patient 11:01:51 CDT Gab Padron MD [facility] CPT-90223 Level 3 Est. Patient 15:27:02 CDT Jared Og MD [facility] CPT-00480 Level 4 Est. Patient 09:25:27 CDT Gab Padron MD [facility] CPT-20890 Level 3 Est. Patient 10:29:41 CDT Rodrigo Sarah [facility] CPT-88116 Level 4 Est. Patient 17:51:05 CDT Gab Padron MD [facility] CPT-77258 Level 3 Est. Patient 14:18:08 CDT Gab Padron MD [facility] CPT-38563 Level 4 Est. Patient 10:18:54 CDT Gab Padron MD [facility] CPT-59904 Level 3 Est. Patient 11:30:07 CDT Rodrigo Sarah [facility] CPT-10982 Level 4 Est. Patient 21:02:30 BRAKE SHOE REBUILDER Gab Padron MD [facility] CPT-07910 Level 3 Est. Patient 11:02:19 BRAKE SHOE REBUILDER Gab Padron MD [facility] CPT-11292 Level 4 Est. Patient 22:24:31 BRAKE SHOE REBUILDER Gab Padron MD [facility] CPT-25605 Level 3 Est. Patient 18:33:46 BRAKE SHOE REBUILDER Gab Padron MD [facility] CPT-87853 Level 3 Est. Patient 16:19:11 CDT Yolande Lindsay MD [facility]-91347 Level 3 Est. Patient 18:59:14 CDT Yolande Lindsay MD [facility]-51488 Level 4 Est. Patient 21:29:26 CDT Yolande Lindsay MD [facility]-21417 Level 3 Est. Patient 07:37:45 CDT Yolande Lindsay MD [facility]-76770 Level 3 Est. Patient 17:03:46 CDT Yolande Lindsay MD [facility]-77276 Level 4 Est. Patient 20:02:13 BRAKE SHOE REBUILDER Yolande Lindsay MD [facility]-92308 Level 3 Est. Patient 16:02:07 BRAKE SHOE REBUILDER Alexis Ordaz MD [facility]-59410 Level 3 Est. Patient 12:41:24 BRAKE SHOE REBUILDER Yolande Lindsay MD [facility]-68255 Level 3 Est. Patient 15:41:20 BRAKE SHOE REBUILDER Yolande Lindsay MD [facility]-90100 Level 3 Est. Patient 13:20:02 BRAKE SHOE REBUILDER Yolande Lindsay MD [facility]-00257 Level 3 Est. Patient 15:00:38 CDT Jared Og MD [facility]-59447 Level 3 Est. Patient 10:22:32 CDT Yolande Lindsay MD [facility]-79714 Level 3 Est. Patient 17:12:58 CDT Yolande Lindsay MD [facility]-31255 Level 4 Est. Patient 13:30:58 CDT Yolande Lindsay MD [facility]-62290 Level 4 New Patient 09:02:42 CDT Jared Og MD [facility]-27824 Level 3 Est. Patient 08:19:07 CDT Yolande Lindsay MD [facility]-73398 Level 3 Est. Patient 12:00:13 BRAKE SHOE REBUILDER Gab Padron MD [facility]-21693 Level 3 Est. Patient 16:15:23 BRAKE SHOE REBUILDER Yolande Lindsay MD [facility]68559 Level 2 Est. Patient 19:47:15 CDT Yolande Lindsay MD [facility]46661 Level 3 Est. Patient 21:38:31 CDT Yolande Lindsay MD [facility]26565 Level 3 Est. Patient 10:25:12 CDT Adiel PERAZA [facility]-93905 Level 4 Est. Patient 10:51:58 CDT Yolande Lindsay MD [facility]-21271 Level 3 Est. Patient 14:04:55 BRAKE SHOE REBUILDER Rodrigo Sarah [facility]-09756 Level 3 Est. Patient 10:46:35 BRAKE SHOE REBUILDER Rodrigo Sarah [facility]-44096 Level 3 Est. Patient 14:24:37 BRAKE SHOE REBUILDER Yolande Lindsay MD [facility]-00702 Level 3 Est. Patient 17:41:58 BRAKE SHOE REBUILDER Yolande Lindsay MD [facility]65253 Level 2 Est. Patient 22:01:41 BRAKE SHOE REBUILDER Rodrigo Sarah [facility]-28941 Level 2 Est. Patient 22:01:11 BRAKE SHOE REBUILDER Rodrigo Sarah [facility]-26534 Level 3 Est. Patient 10:12:29 BRAKE SHOE REBUILDER Rodrigo Sarah [facility]-31249 Level 3 Est. Patient 11:05:44 CDT Alexis Ordaz MD [facility] CPT-26819 Level 3 Est. Patient 14:57:20 CDT Yolande Lindsay MD [facility] CPT-18083 Level 3 Est. Patient 14:40:57 CDT Yolande Lindsay MD [facility] CPT-12913 Level 3 Est. Patient 20:55:40 CDT Yolande Lindsay MD [facility] CPT-35636 Level 3 Est. Patient 12:42:38 BRAKE SHOE REBUILDER Yolande Lindsay MD [facility] CPT-51968 Level 3 Est. Patient 11:54:49 BRAKE SHOE REBUILDER Des Hines MD [facility] CPT-08464 Level 3 Est. Patient 17:06:38 CDT Dewayne PERAZA [facility] Procedures Code Procedure Name Date Entry Date Standard Description CPT-65146 Foot, left, comp min 3V - XRAY USE ONLY 09:24:54 CDT CPT-83256 Abd single AP View - XRAY USE ONLY 11:16:17 CDT CPT-62581 T spine AP/ Lat - XRAY USE ONLY 09:34:21 CDT CPT-63916 Chest 2V Frontal and Lat - XRAY USE ONLY 10:48:51 CDT CPT-13147 LS spine comp w obliq 13:28:00 BRAKE SHOE REBUILDER CPT-J1040 Depo Medrol 80 mg (Methyl Prednisolone Acetate) 10:51: 28 BRAKE SHOE REBUILDER CPT-J1100 Decadron 8mg (Dexamethasone) 10:51:28 BRAKE SHOE REBUILDER CPT-19317 Abx/Therapy Injection 10:51:28 BRAKE SHOE REBUILDER CPT-J1100 Decadron 8mg (Dexamethasone) 21:02:30 BRAKE SHOE REBUILDER CPT-J1040 Depo Medrol 80 mg (Methyl Prednisolone Acetate) 21:02: 30 BRAKE SHOE REBUILDER [id number] Event Monitor - MC Transmission 09:12:32 CDT 08/06 [id number] Event Monitor - MC review and interp 09:12:32 CDT [id number] Event Monitor - MC recording 09:12:32 CDT CPT-90092 EKG Trac and Interp 16:50:22 CDT CPT-J1030 Depo Medrol 40 mg (Methyl Prednisolone Acetate) 17:05: 54 CDT CPT-J1100 Decadron 4mg (Dexamethasone) 17:05:54 CDT CPT-61499 Abx/Therapy Injection 17:05:54 CDT CPT-J1100 Decadron 4mg (Dexamethasone) 16:55:28 CDT CPT-J1030 Depo Medrol 40 mg (Methyl Prednisolone Acetate) 16:55: 28 CDT CPT-03244 Ankle Complete - Min 3V 15:58:50 CDT CPT-02522 Knee 3V 15:58:50 CDT CPT-59777 Hip comp min 2V 15:58:50 CDT CPT-J2270 Morphine Sulfate 10 mg 14:25:44 BRAKE SHOE REBUILDER CPT-J2550 Phenergan 12.5 mg (Promethazine) 14:25:44 BRAKE SHOE REBUILDER CPT-68789 Abx/Therapy Injection 14:25:44 BRAKE SHOE REBUILDER CPT-J2550 Phenergan 12.5 mg (Promethazine) 14:08:03 BRAKE SHOE REBUILDER CPT-J2270 Morphine Sulfate 10 mg 14:08:03 BRAKE SHOE REBUILDER CPT-74370 Bladder Scan 15:00:38 CDT CPT-TCMM Transitional Care Mgmt-Moderate 09:52:22 CDT CPT-J1030 Depo Medrol 40 mg (Methyl Prednisolone Acetate) 10:55: 18 CDT CPT-J1100 Decadron 4mg (Dexamethasone) 10:55:18 CDT CPT-78038 Abx/Therapy Injection 10:55:18 CDT CPT-J1030 Depo Medrol 40 mg (Methyl Prednisolone Acetate) 10:22: 32 CDT CPT-J1100 Decadron 4mg (Dexamethasone) 10:22:32 CDT CPT-83640 Postop F/U Visit 14:37:13 CDT CPT-30492 Ankle Complete - Min 3V 17:11:58 CDT CPT-15166 Foot comp min 3V 17:11:58 CDT CPT-32244 Bladder Scan 09:56:58 CDT CPT-89927 Postop F/U Visit 09:56:58 CDT CPT-30193 Cystoscopy 09:02:42 CDT CPT-72224 Bladder Scan 09:02:42 CDT CPT-17699 Abd single AP View 16:00:35 CDT CPT-63944 Administration single or combination vaccine inc oral 10 :15:43 CDT CPT-54242 Influenza split virus > age 3 10:15:43 CDT CPT-09244 Nail Avulsion 09:24:57 CDT CPT-OV Office Visit 11:15:41 CDT CPT-50820 Abx/Therapy Injection 10:51:30 CDT CPT-J3301 Kenalog 40 mg (Triamcinolone Acetonide) 10:25:12 CDT CPT-J1100 Decadron 4mg (Dexamethasone) 10:25:12 CDT CPT-65612 Anoscopy diagnostic 10:36:12 CDT CPT-OV Office Visit 15:34:31 CDT CPT-86166 Abx/Therapy Injection 08:21:15 BRAKE SHOE REBUILDER CPT-J1885 Toradol 60 mg (Ketorolac) 10:46:35 BRAKE SHOE REBUILDER CPT-OV Office Visit 19:51:16 BRAKE SHOE REBUILDER CPT-95494 Spec Collection and Handling Fee 14:34:18 BRAKE SHOE REBUILDER CPT-PV Prev. Care Visit 14:19:18 BRAKE SHOE REBUILDER CPT-41885 Postop F/U Visit 14:47:51 BRAKE SHOE REBUILDER CPT-19248 Postop F/U Visit 15:15:14 BRAKE SHOE REBUILDER CPT-04306 Postop F/U Visit 14:41:43 CDT CPT-69100 Postop F/U Visit 15:47:46 CDT CPT-OV Office Visit 15:27:23 CDT CPT-OV Office Visit 17:20:34 CDT CPT-61220 Abx/Therapy Injection 15:05:57 CDT CPT-J1100 Decadron 8mg (Dexamethasone) 14:44:57 CDT CPT-J1040 Depo Medrol 80 mg (Methyl Prednisolone Acetate) 14:44: 57 CDT CPT-JTINJ Joint Injection 10:17:37 CDT CPT-68743 Administration 2+ single or combination vaccines inc oral 13:01:46 [employer]KE [employer]OE REBUILDER CPT-63956 Administration single or combination vaccine inc oral 13 :01:46 [employer] RE[employer] CPT-16560 Pneumovax 13:01:46 [employer]KE SHOE REBUILDER CPT-74069 Influenza split virus > age 3 13:01:46 B[employer]KE SHOE REBUILDER CPT-77166 Administration single or combination vaccine inc oral 08 :56:49 CDT CPT-16525 Tdap 08:56:49 CDT
--- OUTSIDE RECORDS SUMMARY | 2017-03-22 01:23 | XMS REPORT | Clinical Summary ---
Author Author Admin, MARGRET Organization [facility] Address Unknown Phone Unavailable Allergies, Adverse Reactions, Alerts Allergy Name Reaction Description Start Date Severity Status Provider VALENTIN Critical Active Rodrigo Montemaoyrl [employer] CHLORHEXIDINE GLUCONATE tongue and gums swollen Critical Active Hoa Kabaford RMA NORFLEX Rash Critical Active Rowenaina Farshadzell [employer] TRAZODONE HCL sees things Critical Active Dewayne [...] OTHER DISORDER OF COCCYX 724.79 Inactive Yolande Linsday MD PhD Other disorders of coccyx ABDOMINAL [...] infarction, hx of 412 Active Hoa Otto [facility] Old myocardial infarction Pelvic pain 789.09 Active Yolande Lindsay MD PhD Abdominal pain, other specified site; multiple sites Edema 782.3 Active Yolande Lindsay MD PhD Edema Rash 782.1 Active Yolande Lindsay MD PhD Rash and other nonspecific skin eruption Back pain, lumbar 724.2 Active Gab Padron MD Lumbago Cough 786.2 Active Jillina Tyrel [employer] Cough 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 Jillina Frazellilian ZAPATAN 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 Anemia 285.9 Active Gab Padron MD Anemia, unspecified Conjunctivitis 372.30 Active Jillnacho Sarah APRN Conjunctivitis, unspecified Sinusitis 473.9 Active Jillina Frazell [employer] Unspecified sinusitis (chronic) Nonspecific syndrome suggestive of viral illness 079.99 Active Rodrigo Sarah [employer] Unspecified viral infection Laryngitis 464.00 Active Rodrigo [...] MCG/DOSE AEPB 1 puff BID FLUTICASONE- SALMETEROL 61110924808 Active Rodrigo Sarah [employer] Active LEVOTHYROXINE SODIUM 75 MCG TABS Take 1 tab daily LEVOTHYROXINE SODIUM 93916407629 No Longer Active Mariana HICKEYA Active SYNTHROID 88 MCG ORAL TABS Take one by mouth daily LEVOTHYROXINE SODIUM 44500426866 Active Mariana HICKEYA Active CHERATUSSIN AC 100-10 MG/5ML SYRP 1 tsp by mouth every 4 hours as needed for cough GUAIFENESIN-CODEINE 90254333376 No Longer Active Gab Padron MD Active POLYTRIM 86336-1.1 UNIT/ML-% SOLN 1 gtt to affected eye q3h x 7 days POLYMYXIN B-TRIMETHOPRIM 64565728669 No Longer Active Gab Padron MD Active FLUTICASONE PROPIONATE 50 MCG/ACT SUSP 1 to 2 sprays each nostril daily 04/21 FLUTICASONE PROPIONATE 15570988006 No Longer Active Gab Padron MD Active TRILEPTAL 600 MG TABS Take one 1 tablet in Am and 1 tablet at night OXCARBAZEPINE 30889743093 Active Gab Padron MD Active CEFDINIR 300 MG CAPS 1 po BID x 10 days CEFDINIR 23234830033 No Longer Active Rodrigo Sarah APRN Active CEFTIN 500 MG TAB 1 twice a day CEFUROXIME AXETIL 80952993287 No Longer Active Gab Padron MD Active AZITHROMYCIN 250 MG TABS 2 po qd x 1 day, then 1 po qd x 4 days AZITHROMYCIN 11689634646 No Longer Active Rodrigo Sarah APRN Active CLARITIN 10 MG TAB 1 tablet by mouth daily as needed for allergies LORATADINE 04005049747 Active Silvestrellnacho Sarah APRN Active OXYCODONE HCL 5 MG ORAL CAPS 1 TAB PO Q HS OXYCODONE HCL 07350854405 No Longer Active Rodrigo Sarah APRN Active NIASPAN 500 MG ORAL CR-TABS 1 pill nightly x 1 week, then 2 pills nightly x 1 week, then 3 pills nightly x 1 week, then 4 pills nightly NIACIN (ANTIHYPERLIPIDEMIC) 61172475145 No Longer Active Silvestrellnacho Sarah APRN Active NIACIN 500 MG TABS 1 pill by mouth nightly x 1 week, then 2 pills x 1 week, then 3 pills x 1 week, then 4 pills nightly - take after evening meal, with applesauce or an apple NIACIN 54800209589 No Longer Active Yolande Lindsay MD PhD Active FISH OIL 1000 MG CAPS 3 pills daily OMEGA-3 FATTY ACIDS 15813799942 Active Yolande Lindsay MD PhD Active TRIAMCINOLONE ACETONIDE 0.1 % CREA apply bid sparingly to rash TRIAMCINOLONE ACETONIDE 51171696291 Active Yolande Lindsay MD PhD Active FUROSEMIDE 20 MG TAB 1 tablet by mouth daily FUROSEMIDE 47791595183 Active Yolande Lindsay MD PhD Active LISINOPRIL 20 MG ORAL TABS 1 tab by mouth daily LISINOPRIL 97859180492 Active Gab Padron MD Active FUROSEMIDE 20 MG TABS 1 pill by mouth daily, for edema FUROSEMIDE 38691366930 No Longer Active Yolande Lindsay MD PhD Active ATORVASTATIN CALCIUM 10 MG TABS 1 pill by mouth daily, for cholesterol 09/06 ATORVASTATIN CALCIUM 34979359571 Active Yolande Lindsay MD PhD Active CALCIUM 600+D PLUS MINERALS 600-400 MG-UNIT ORAL CHEW 1 tab by mouth daily CALCIUM CARBONATE-VIT D-MIN 80214288737 No Longer Active Yolande Lindsay MD PhD Active CYCLOBENZAPRINE HCL 10 MG TABS 1 tablet by mouth three times daily as needed for muscle spasm/pain CYCLOBENZAPRINE HCL 38351153836 Active Yolande Lindsay MD PhD Active ONDANSETRON 4 MG TBDP 1 q4h PRN nausea ONDANSETRON 67018641950 Active Yolande Lindsay MD PhD Active ADULT ASPIRIN EC LOW STRENGTH 81 MG TBEC Take 1 tablet by mouth daily 2014 ASPIRIN 60124923432 No Longer Active Yolande Lindsay MD PhD Active ZOFRAN ODT 4 MG TBDP 1 pill dissolved by mouth every 4 hours if needed for nausea ONDANSETRON 26228879903 No Longer Active Yolande Lindsay MD PhD Active CEFTIN 500 MG TAB 1 twice a day CEFUROXIME AXETIL 57437364351 No Longer Active Yolande Lindsay MD PhD Active ALBUTEROL SULFATE 0.083 % NEBU SOLN one vial per nebulizer every 4-6 hours as needed ALBUTEROL SULFATE 79994966913 No Longer Active Alexis Ordaz MD Active DOXYCYCLINE HYCLATE 100 MG CAP 1 cap by mouth twice daily DOXYCYCLINE HYCLATE 04700012783 No Longer Active Yolande Lindsay MD PhD Active CYCLOBENZAPRINE HCL 10 MG TABS 1/2 - 1 tab by mouth three times daily if needed for spasms/pain CYCLOBENZAPRINE HCL 66813489193 No Longer Active Yolande Lindsay MD PhD Active AZITHROMYCIN 250 MG TABS 2 pills on day 1, then 1 pill daily x 4 days AZITHROMYCIN 83234296283 No Longer Active Yolande Lindsay MD PhD Active XOPENEX 1.25 MG/3ML NEBU 1 neb every 4 hours if needed for cough/congestion LEVALBUTEROL HCL 99855259764 No Longer Active Yolande Lindsay MD PhD Active DOXYCYCLINE HYCLATE 100 MG TAB 1 tab twice a day for 14 days 2013 DOXYCYCLINE HYCLATE 55071443145 No Longer Active Yolande Lindsay MD PhD Active PREVACID 30 MG CPDR Take 1 tablet by mouth daily-PRN LANSOPRAZOLE 10099937507 No Longer Active Yolande Lindsay MD PhD Active PA VITAMIN D-3 2000 UNIT CAPS 1 CAP PO DAILY CHOLECALCIFEROL 12329811450 No Longer Active Yolande Lindsay MD PhD Active CEFDINIR 300 MG CAPS by mouth twice a day CEFDINIR 52214665789 No Longer Active Gab Padron MD Active TOPAMAX 50 MG TABS 1 PO twice daily TOPIRAMATE 10090771576 Active Yolande Lindsay MD PhD Active AZITHROMYCIN 250 MG TABS 2 po qd x 1 day, then 1 po qd x 4 days AZITHROMYCIN 01036235450 No Longer Active Yolande Lindsay MD PhD Active DICLOFENAC SODIUM 75 MG TBEC 1 tablet by q 12 hours PRN headaches DICLOFENAC SODIUM 07439959613 No Longer Active Yolande Lindsay MD PhD Active FLONASE 50 MCG/ACT SUSP 1 spray each nostril am and hs FLUTICASONE PROPIONATE 96615998917 No Longer Active Todd Callaway MD Active ANUSOL-HC 25 MG SUPPOSITORY 1 rectally twice a day as needed for hemorrhoids HYDROCORTISONE JAYDEN (RECTAL) 79918186960 No Longer Active Yolande Lindsay MD PhD Active ANUSOL-HC 25 MG SUPPOSITORY 1 suppository rectally each evening as needed for anal fissure HYDROCORTISONE JAYDEN (RECTAL) 58976511722 No Longer Active LONNIE Iglesias Active VALIUM 5 MG TAB 1 po 30 minutes prior to your MRI DIAZEPAM 86977573115 No Longer Active LONNIE Iglesias Active METHOCARBAMOL 750 MG TABS 1 PO QID PRN METHOCARBAMOL 23151770801 No Longer Active Daphne Wetzel APRN Active NITROSTAT 0.4 MG SUBL as directed NITROGLYCERIN 99184682121 No Longer Active Rodrigo Sarah APRN Active ROBAXIN-750 750 MG TABS 2 four times a day for 3 days as needed for muscle spasm, then 1 four times a day as needed METHOCARBAMOL 61722607441 No Longer Active Rodrigo Sarah APRN Active HYDROCODONE-ACETAMINOPHEN 5-325 MG TABS 1 q 4-6 hrs prn HYDROCODONE-ACETAMINOPHEN 34617116186 No Longer Active Rodrigo Sarah APRN Active VERAPAMIL HCL CR 180 MG CR-TABS TAKE 1 TAB DAILY VERAPAMIL HCL 68019067525 No Longer Active Yolande Lindsay MD PhD Active BACTRIM DS 800-160 MG TAB 1 tab by mouth twice daily TRIMETHOPRIM-SULFAMETHOXAZOLE 86135122170 No Longer Active Yolande Lindsay MD PhD Active NEXIUM 40 MG PACK 1 by mouth daily ESOMEPRAZOLE MAGNESIUM 48879512970 No Longer Active Des Hines MD Active EPIPEN 2-CHARLETTE 0.3 MG/0.3ML OMARI as need for allergic reaction EPINEPHRINE 24946709516 Active Yolande Lindsay MD PhD Active NEXIUM 40 MG CPDR 1 PO Q D DAY ESOMEPRAZOLE MAGNESIUM 09846326219 No Longer Active Sadia Perry RN Active NEXIUM 40 MG PACK 1 by mouth daily NEXIUM 40 MG PACK ESOMEPRAZOLE MAGNESIUM Inactive VERAPAMIL HCL CR 180 MG CR-TABS TAKE 1 TAB DAILY VERAPAMIL HCL CR 180 MG CR-TABS VERAPAMIL HCL Inactive HYDROCODONE-ACETAMINOPHEN 5-325 MG TABS 1 q 4-6 hrs prn HYDROCODONE-ACETAMINOPHEN 5-325 MG TABS 070989 HYDROCODONE-ACETAMINOPHEN Inactive ROBAXIN-750 750 MG TABS 2 four times a day for 3 days as needed for muscle spasm, then 1 four times a day as needed ROBAXIN-750 750 MG TABS 534282 METHOCARBAMOL Inactive NITROSTAT 0.4 MG SUBL as directed NITROSTAT 0.4 MG SUBL NITROGLYCERIN Inactive METHOCARBAMOL 750 MG TABS 1 PO QID PRN METHOCARBAMOL 750 MG TABS 814870 METHOCARBAMOL Inactive VALIUM 5 MG TAB 1 po 30 minutes prior to your MRI VALIUM 5 MG TAB 827096 DIAZEPAM Inactive ANUSOL-HC 25 MG SUPPOSITORY 1 suppository rectally each evening as needed for anal fissure ANUSOL-HC 25 MG SUPPOSITORY 9462757 HYDROCORTISONE JAYDEN (RECTAL) Inactive ANUSOL-HC 25 MG SUPPOSITORY 1 rectally twice a day as needed for hemorrhoids ANUSOL-HC 25 MG SUPPOSITORY 9565733 HYDROCORTISONE JAYDEN (RECTAL) Inactive FLONASE 50 MCG/ACT SUSP 1 spray each nostril am and hs FLONASE 50 MCG/ACT SUSP FLUTICASONE PROPIONATE Inactive DICLOFENAC SODIUM 75 MG TBEC 1 tablet by q 12 hours PRN headaches DICLOFENAC SODIUM 75 MG TBEC 721480 DICLOFENAC SODIUM Inactive PA VITAMIN D-3 2000 UNIT CAPS 1 CAP PO DAILY PA VITAMIN D-3 2000 UNIT CAPS CHOLECALCIFEROL Inactive PREVACID 30 MG CPDR Take 1 tablet by mouth daily-PRN PREVACID 30 MG CPDR 641246 LANSOPRAZOLE Inactive DOXYCYCLINE HYCLATE 100 MG TAB 1 tab twice a day for 14 days 2013 DOXYCYCLINE HYCLATE 100 MG TAB 9812049 DOXYCYCLINE HYCLATE Inactive XOPENEX 1.25 MG/3ML NEBU 1 neb every 4 hours if needed for cough/congestion XOPENEX 1.25 MG/3ML NEBU 559657 LEVALBUTEROL HCL Inactive CYCLOBENZAPRINE HCL 10 MG TABS 1/2 - 1 tab by mouth three times daily if needed for spasms/pain CYCLOBENZAPRINE HCL 10 MG TABS 669032 CYCLOBENZAPRINE HCL Inactive ALBUTEROL SULFATE 0.083 % NEBU SOLN one vial per nebulizer every 4-6 hours as needed ALBUTEROL SULFATE 0.083 % NEBU SOLN 891352 ALBUTEROL SULFATE Inactive CEFTIN 500 MG TAB 1 twice a day CEFTIN 500 MG TAB 975952 CEFUROXIME AXETIL Inactive ZOFRAN ODT 4 MG TBDP 1 pill dissolved by mouth every 4 hours if needed for nausea ZOFRAN ODT 4 MG TBDP 223422 ONDANSETRON Inactive ADULT ASPIRIN EC LOW STRENGTH 81 MG TBEC Take 1 tablet by mouth daily 2014 ADULT ASPIRIN EC LOW STRENGTH 81 MG TBEC 523101 ASPIRIN Inactive CALCIUM 600+D PLUS MINERALS 600-400 [...] or an apple NIACIN 500 MG TABS 069051 NIACIN Inactive NIASPAN 500 MG ORAL CR-TABS 1 pill nightly x 1 week, then 2 pills nightly x 1 week, then 3 pills nightly x 1 week, then 4 pills nightly NIASPAN 500 MG ORAL CR-TABS NIACIN (ANTIHYPERLIPIDEMIC) Inactive OXYCODONE HCL 5 MG ORAL CAPS 1 TAB PO Q HS OXYCODONE HCL 5 MG ORAL CAPS 2343068 OXYCODONE HCL Inactive FLUTICASONE PROPIONATE 50 MCG/ACT SUSP 1 to 2 sprays each nostril daily 04/21 FLUTICASONE PROPIONATE 50 MCG/ACT SUSP 150113 FLUTICASONE PROPIONATE Inactive POLYTRIM 78719-1.1 UNIT/ML-% SOLN 1 gtt to affected eye q3h x 7 days POLYTRIM 90814-3.1 UNIT/ML-% SOLN 423783 POLYMYXIN B- TRIMETHOPRIM Inactive CHERATUSSIN AC 100-10 MG/5ML SYRP 1 tsp by mouth every 4 hours as needed for cough CHERATUSSIN AC 100-10 MG/5ML SYRP 161787 GUAIFENESIN-CODEINE Inactive LEVOTHYROXINE SODIUM 75 MCG TABS Take 1 tab daily LEVOTHYROXINE SODIUM 75 MCG TABS 837934 LEVOTHYROXINE SODIUM Inactive BACTRIM DS 800-160 MG TAB 1 tab by mouth twice daily BACTRIM DS 800-160 MG TAB 030333 TRIMETHOPRIM-SULFAMETHOXAZOLE Inactive AZITHROMYCIN 250 MG TABS 2 po qd x 1 day, then 1 po qd x 4 days AZITHROMYCIN 250 MG TABS 2529824 AZITHROMYCIN Inactive CEFDINIR 300 MG CAPS by mouth twice a day CEFDINIR 300 MG CAPS 764529 CEFDINIR Inactive AZITHROMYCIN 250 MG TABS 2 pills on day 1, then 1 pill daily x 4 days AZITHROMYCIN 250 MG TABS 0349455 AZITHROMYCIN Inactive DOXYCYCLINE HYCLATE 100 MG CAP 1 cap by mouth twice daily DOXYCYCLINE HYCLATE 100 MG CAP 5720164 DOXYCYCLINE HYCLATE Inactive FUROSEMIDE 20 MG TABS 1 pill by mouth daily, for edema FUROSEMIDE 20 MG TABS 892692 FUROSEMIDE Inactive AZITHROMYCIN 250 MG TABS 2 po qd x 1 day, then 1 po qd x 4 days AZITHROMYCIN 250 MG TABS 7153888 AZITHROMYCIN Inactive CEFTIN 500 MG TAB 1 twice a day CEFTIN 500 MG TAB 488651 CEFUROXIME AXETIL Inactive CEFDINIR 300 MG CAPS 1 po BID x 10 days CEFDINIR 300 MG CAPS 035325 CEFDINIR Inactive Immunizations Vaccine Administration Date Value Standard Description Seasonal influenza vaccine, injectable, containing preservative, for > 3 years old (Afluria, FluLaval, Fluzone, Fluvirin, Fluarix, Agriflu(>=18 yo)) Fluzone (>3 yrs.) [[id number]] Influenza, seasonal, injectable influenza immunization (Flu Vax) has been administered Influenza - Unspecified Formulation [CVX88] influenza virus vaccine, unspecified formulation pneumococcal immunization administered Pneumovax 23 [CVX33] pneumococcal polysaccharide vaccine, 23 valent Seasonal influenza vaccine, injectable, containing preservative, for > 3 years old (Afluria, FluLaval, Fluzone, Fluvirin, Fluarix, Agriflu(>=18 yo)) Fluzone (>3 yrs.) [CLA476] Influenza, seasonal, injectable dT (Diphtheria and Tetanus) booster given given Td(adult) unspecified formulation Boostrix (Tetanus toxoid, reduced diphtheria toxoid and acellular pertussis vaccine, adsorbed), booster Boostrix [XQF658] tetanus toxoid, reduced diphtheria toxoid, and acellular [...] Panel - Chemistry sodium, serum 145 mmol/L 857-488 3940/06/22 potassium, serum 3.9 mmol/L 3.5-5.2 chloride, serum 109 mmol/L 98-107 carbon dioxide, venous blood 23.4 mmol/L 21.0-32.0 blood glucose 92 mg/dL 65-110 calcium, serum 8.2 mg/dL 8.5-10.1 urea nitrogen, blood 24 mg/dL 7-18 creatinine, serum 1.30 mg/dL 0.60-1.30 Lab Report: [facility] Advanced Lipid and Inlammation Panel /88144 - Chemistry cholesterol, serum 198 mg/dL [phone]/04/30 HDL cholesterol, serum 65 mg/dL > OR=46 triglyceride, serum, fasting 82 mg/dL LDL cholesterol, serum 117 mg/dL cholesterol/HDL ratio, serum 3.0 calc < OR=5.0 cholesterol, serum 148 mg/dL 311-899 8158/09/02 HDL cholesterol, serum 55 mg/dL > OR=46 [...] (L) - Chemistry sodium, serum 145 mmol/L 905-367 5522/09/02 potassium, serum 4.6 mmol/L 3.5-5.2 chloride, serum [...] Rate - Chemistry sodium, serum 139 mmol/L 183-923 6937/03/24 carbon dioxide, venous blood 22.4 mmol/L 21.0-32.0 [...] 51 mg/dL 30-200 cholesterol, serum 173 mg/dL 384-597 1043/04/28 HDL cholesterol, serum 63 mg/dL 32-96 LDL [...] mg/dL Encounters Code Encounter Date Provider Facility CPT-39420 Level 3 Est. Patient 11:30:07 CDT Rodrigo Sarah APRN [facility] CPT-98502 Level 4 Est. Patient 21:02:30 [employer] Gab Padron MD [facility] CPT-15976 Level 3 Est. Patient 11:02:19 [employer] SUPER[employer]OR Gab Padron MD [facility] CPT-92078 Level 4 Est. Patient 22:24:31 [employer] SUPER[employer]OR Gab Padron MD [facility] CPT-26267 Level 3 Est. Patient 18:33:46 [employer]PER[employer]OR Gab Padron MD [facility] CPT-74071 Level 3 Est. Patient 16:19:11 CDT Yolande Lindsay MD PhD [facility] CPT-48928 Level 3 Est. Patient 18:59:14 CDT Yolande Lindsay MD PhD [facility] CPT-50252 Level 4 Est. Patient 21:29:26 CDT Yolande Lindsay MD PhD [facility] CPT-06969 Level 3 Est. Patient 07:37:45 CDT Yolande Lindsay MD PhD [facility]-64258 Level 3 Est. Patient 17:03:46 CDT Yolande Lindsay MD [facility]-91960 Level 4 Est. Patient 20:02:13 [employer] Yolande Lindsay MD [facility]-77528 Level 3 Est. Patient 16:02:07 [employer]PER[employer]OR Alexis Ordaz MD [facility]-01578 Level 3 Est. Patient 12:41:24 [employer]PER[employer]OR Yolande Lindsay MD [facility]-22744 Level 3 Est. Patient 15:41:20 [employer]PER[employer]OR Yolande Lindsay MD [facility]-52774 Level 3 Est. Patient 13:20:02 [employer]PER[employer]OR Yolande Lindsay MD [facility]-76942 Level 3 Est. Patient 15:00:38 CDT Jared Og MD [facility]-06632 Level 3 Est. Patient 10:22:32 CDT Yolande Lindsay MD [facility] CPT-39973 Level 3 Est. Patient 17:12:58 CDT Yolande Lindsay MD [facility]-49542 Level 4 Est. Patient 13:30:58 CDT Yolande Lindsay MD [facility] CPT-84425 Level 4 New Patient 09:02:42 CDT Jared Og MD [facility]-14693 Level 3 Est. Patient 08:19:07 CDT Yolande Lindsay MD [facility]-08031 Level 3 Est. Patient 12:00:13 [employer] Gab Padron MD [facility]-08339 Level 3 Est. Patient 16:15:23 [employer] SUPER[employer]OR Yolande Lindsay MD [facility]-11510 Level 2 Est. Patient 19:47:15 CDT Yolande Lindsay MD [facility]-99140 Level 3 Est. Patient 21:38:31 CDT Yolande Lindsay MD [facility]-11164 Level 3 Est. Patient 10:25:12 CDT Adiel Rodríguezozzie PERAZA [facility]-15626 Level 4 Est. Patient 10:51:58 CDT Yolande Lindsay MD [facility]15382 Level 3 Est. Patient 14:04:55 [employer]PER[employer]OR Rodrigo Sarah [facility]-88590 Level 3 Est. Patient 10:46:35 [employer] SUPER[employer]OR Rodrigo Sarah [facility]-08208 Level 3 Est. Patient 14:24:37 [employer] SUPER[employer]OR Yolande Lindsay MD [facility]-93207 Level 3 Est. Patient 17:41:58 [employer] SUPER[employer]OR Yolande Lnidsay MD [facility]-64625 Level 2 Est. Patient 22:01:41 [employer]OR Rodrigo Sarah [facility]-61362 Level 2 Est. Patient 22:01:11 [employer] SUPER[employer]OR Rodrigo Sarah [facility]-02120 Level 3 Est. Patient 10:12:29 [employer] SUPER[employer]OR Rodrigo Sarah [facility]-14752 Level 3 Est. Patient 11:05:44 CDT Alexis Ordaz MD [facility]-08857 Level 3 Est. Patient 14:57:20 CDT Yolande Lindsay MD [facility]93581 Level 3 Est. Patient 14:40:57 CDT Yolande Lindsay MD [facility]31343 Level 3 Est. Patient 20:55:40 CDT Yolande Lindsay MD PhD [facility] CPT-21873 Level 3 Est. Patient 12:42:38 [employer]PER[employer]OR Yolande Lindsay MD PhD [facility] CPT-49543 Level 3 Est. Patient 11:54:49 [employer] SUPER[employer]OR Des Hines MD [facility] CPT-93503 Level 3 Est. Patient 17:06:38 CDT Dewayne PERAZA [facility] Procedures Code Procedure Name Date Entry Date Standard Description CPT-59754 LS spine comp w obliq 13:28:00 [employer] CPT-J1040 Depo Medrol 80 mg (Methyl Prednisolone Acetate) 10:51: 28 [employer]OR CPT-J1100 Decadron 8mg (Dexamethasone) 10:51:28 [employer]PER[employer]OR CPT-83677 Abx/Therapy Injection 10:51:28 [employer]PER[employer]OR CPT-J1100 Decadron 8mg (Dexamethasone) 21:02:30 [employer] SUPERVISOR CPT-J1040 Depo Medrol 80 mg (Methyl Prednisolone Acetate) 21:02: 30 [employer]PER[employer] [id number] Event Monitor - MC Transmission 09:12:32 CDT 08/06 [id number] Event Monitor - MC review and interp 09:12:32 CDT [id number] Event Monitor - MC recording 09:12:32 CDT CPT-81817 EKG Trac and Interp 16:50:22 CDT CPT-J1030 Depo Medrol 40 mg (Methyl Prednisolone Acetate) 17:05: 54 CDT CPT-J1100 Decadron 4mg (Dexamethasone) 17:05:54 CDT CPT-49288 Abx/Therapy Injection 17:05:54 CDT CPT-J1100 Decadron 4mg (Dexamethasone) 16:55:28 CDT CPT-J1030 Depo Medrol 40 mg (Methyl Prednisolone Acetate) 16:55: 28 CDT CPT-31124 Ankle Complete - Min 3V 15:58:50 CDT CPT-70945 Knee 3V 15:58:50 CDT CPT-26565 Hip comp min 2V 15:58:50 CDT CPT-J2270 Morphine Sulfate 10 mg 14:25:44 [employer]OR CPT-J2550 Phenergan 12.5 mg (Promethazine) 14:25:44 [employer] SUPERVISOR CPT-83575 Abx/Therapy Injection 14:25:44 [employer]MENT SUPERVISOR CPT-J2550 Phenergan 12.5 mg (Promethazine) 14:08:03 [employer] SUPERVISOR CPT-J2270 Morphine Sulfate 10 mg 14:08:03 [employer] SUPERVISOR CPT-67691 Bladder Scan 15:00:38 CDT CPT-TCMM Transitional Care Mgmt-Moderate 09:52:22 CDT CPT-J1030 Depo Medrol 40 mg (Methyl Prednisolone Acetate) 10:55: 18 CDT CPT-J1100 Decadron 4mg (Dexamethasone) 10:55:18 CDT CPT-03557 Abx/Therapy Injection 10:55:18 CDT CPT-J1030 Depo Medrol 40 mg (Methyl Prednisolone Acetate) 10:22: 32 CDT CPT-J1100 Decadron 4mg (Dexamethasone) 10:22:32 CDT CPT-94368 Postop F/U Visit 14:37:13 CDT CPT-21751 Ankle Complete - Min 3V 17:11:58 CDT CPT-32682 Foot comp min 3V 17:11:58 CDT CPT-25950 Bladder Scan 09:56:58 CDT CPT-39551 Postop F/U Visit 09:56:58 CDT CPT-02327 Cystoscopy 09:02:42 CDT CPT-00446 Bladder Scan 09:02:42 CDT CPT-58360 Abd single AP View 16:00:35 CDT CPT-20329 Administration single or combination vaccine inc oral 10 :15:43 CDT CPT-40004 Influenza split virus > age 3 10:15:43 CDT CPT-44255 Nail Avulsion 09:24:57 CDT CPT-OV Office Visit 11:15:41 CDT CPT-42186 Abx/Therapy Injection 10:51:30 CDT CPT-J3301 Kenalog 40 mg (Triamcinolone Acetonide) 10:25:12 CDT CPT-J1100 Decadron 4mg (Dexamethasone) 10:25:12 CDT CPT-64169 Anoscopy diagnostic 10:36:12 CDT CPT-OV Office Visit 15:34:31 CDT CPT-25079 Abx/Therapy Injection 08:21:15 [employer] SUPERVISOR CPT-J1885 Toradol 60 mg (Ketorolac) 10:46:35 [employer]MENT SUPERVISOR CPT-OV Office Visit 19:51:16 [employer]MENT SUPERVISOR CPT-22553 Spec Collection and Handling Fee 14:34:18 [employer]MENT SUPERVISOR CPT-PV Prev. Care Visit 14:19:18 [employer]MENT SUPERVISOR CPT-89502 Postop F/U Visit 14:47:51 [employer]MENT SUPERVISOR CPT-31361 Postop F/U Visit 15:15:14 [employer]MENT SUPERVISOR CPT-09637 Postop F/U Visit 14:41:43 CDT CPT-59726 Postop F/U Visit 15:47:46 CDT CPT-OV Office Visit 15:27:23 CDT CPT-OV Office Visit 17:20:34 CDT CPT-17371 Abx/Therapy Injection 15:05:57 CDT CPT-J1100 Decadron 8mg (Dexamethasone) 14:44:57 CDT CPT-J1040 Depo Medrol 80 mg (Methyl Prednisolone Acetate) 14:44: 57 CDT CPT-JTINJ Joint Injection 10:17:37 CDT CPT-71830 Administration 2+ single or combination vaccines inc oral 13:01:46 [employer] SUPER[employer]OR CPT-04330 Administration single or combination vaccine inc oral 13 :01:46 [employer]MENT SUPERVISOR CPT-18949 Pneumovax 13:01:46 [employer] SUPERVISOR CPT-30101 Influenza split virus > age 3 13:01:46 [employer] SUPER[employer]OR CPT-00670 Administration single or combination vaccine inc oral 08 :56:49 CDT CPT-16368 Tdap 08:56:49 CDT
--- OUTSIDE RECORDS SUMMARY | 2017-03-22 01:25 | XMS REPORT ---
Author Author [facility] Medical Staff Organization [facility] [employer] [facility] Address [address] [place] [id number] Phone [phone] Care Team Providers Care Medical Auditor Name Role Phone EVELYN SPEARS MD PP [phone] Summary purpose TRANSITION OF CARE AUTO GENERATION [...] Status Finding Observation Time Abdomen Appearance obese [id number]:15 Abdomen soft 57-00-139905:15 Bajwa no 40-52-389316:15 Urination normal 30-50-460447:15 Quality sym/unlabored 44-81-596186:15 Cough absent :15 Secretions no :15 Breath Sounds RUL clear :15 Breath Sounds RML clear :15 Breath Sounds RLL clear :15 Breath Sounds LESLIE clear :15 Breath Sounds LLL clear :15 Airway natural :15 Chest Tube no :15 Oxygen no :25 Temp >100.4 yes : Temp <96.8 no : Chills with rigors no : HR > 90bpm yes : Respirations > 20 no : Systolic <90 no : headache stiff neck no :25 Nursing Note No s/s of reaction noted. DC inst given to pt with Rx for Ceftin. Verb understanding of inst and pt amb off unit in stable condition. : 25 Vital signs Type Value Date Respiration Rate 18breaths per minute :25 Pulse 90beats per minute :25 Oxygen Saturation 98% :25 BP Systolic 1120mmHg 01-56-458133:25 BP Diastolic 75mmHg :25 Temperature 101.9F 12-45-464120:25 Social history Type Value Smoking Status FORMER SMOKER Treatment Plan No treatment plan text is available for this visit. Hospital discharge instructions Dismissal Condition fair Disposition on DC home DC Inst/Educ Give yes Med/Side Effects Rev yes PNE Vac Jan 13, 2015 Flu Vac Jan 13, 2015
--- OUTSIDE RECORDS SUMMARY | 2017-03-22 01:25 | XMS REPORT | Clinical Summary ---
Author Author Admin, MARGRET Organization [id number] Address Unknown Phone Unavailable Allergies, Adverse Reactions, Alerts Allergy Name Reaction Description Start Date Severity Status Provider VALENTIN Critical Active Rodrigo Montemayorl BURN OUT SCARFING OPERATOR CHLORHEXIDINE GLUCONATE tongue and gums swollen Critical Active Hoa Kabaford RMA NORFLEX Rash Critical Active Rowenaina Farshadzell BURN OUT SCARFING OPERATOR TRAZODONE HCL sees things Critical Active [...] unspecified Muscle spasm, back 724.8 Resolved Yolande Lindsya MD PhD Other symptoms referable to back [...] LINCOLN Old myocardial infarction Pelvic pain 789.09 Active Yolande Lindsay MD PhD Abdominal pain, other specified site; multiple sites Edema 782.3 Active Yolande Lindsay MD PhD Edema Rash 782.1 Active Yolande Lindsay MD PhD Rash and other nonspecific skin eruption Back pain, lumbar 724.2 Active Gab Padron MD Lumbago Cough 786.2 Active Jillina Tyrel BURN OUT SCARFING OPERATOR Cough 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 Jillina Frazellilian ZAPATAN 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 Anemia 285.9 Active Gab Padron MD Anemia, unspecified Conjunctivitis 372.30 Active Jillnacho Sarah APRN Conjunctivitis, unspecified Sinusitis 473.9 Active Jillina Frazell BURN OUT SCARFING OPERATOR Unspecified sinusitis (chronic) FOOT PAIN, RIGHT [...] 4 hours as needed for cough GUAIFENESIN-CODEINE 45611079625 No Longer Active Gab Padron MD Active POLYTRIM 09102-3.1 UNIT/ML-% SOLN 1 gtt to affected eye q3h x 7 days POLYMYXIN B-TRIMETHOPRIM 15738867726 No Longer Active Gab Padron MD Active FLUTICASONE PROPIONATE 50 MCG/ACT SUSP 1 to 2 sprays each nostril daily 04/21 FLUTICASONE PROPIONATE 26495981845 No Longer Active Gab Padron MD Active TRILEPTAL 600 MG TABS Take one 1 tablet in Am and 1 tablet at night OXCARBAZEPINE 69369710185 Active Gab Padron MD Active CEFDINIR 300 MG CAPS 1 po BID x 10 days CEFDINIR 72473884995 No Longer Active Rodrigo Sarah APRN Active CEFTIN 500 MG TAB 1 twice a day CEFUROXIME AXETIL 13428018338 No Longer Active Gab Padron MD Active AZITHROMYCIN 250 MG TABS 2 po qd x 1 day, then 1 po qd x 4 days AZITHROMYCIN 34628734142 No Longer Active Rodrigo Sarah APRN Active CLARITIN 10 MG TAB 1 tablet by mouth daily as needed for allergies LORATADINE 52161339412 Active Rodrigo Sarah APRN Active OXYCODONE HCL 5 MG ORAL CAPS 1 TAB PO Q HS OXYCODONE HCL 84781556928 No Longer Active Rodrigo Sarah APRN Active NIASPAN 500 MG ORAL CR-TABS 1 pill nightly x 1 week, then 2 pills nightly x 1 week, then 3 pills nightly x 1 week, then 4 pills nightly NIACIN (ANTIHYPERLIPIDEMIC) 50480997168 No Longer Active Rodrigo Sarah APRN Active NIACIN 500 MG TABS 1 pill by mouth nightly x 1 week, then 2 pills x 1 week, then 3 pills x 1 week, then 4 pills nightly - take after evening meal, with applesauce or an apple NIACIN 61882759433 No Longer Active Yolande Lindsay MD PhD Active FISH OIL 1000 MG CAPS 3 pills daily OMEGA-3 FATTY ACIDS 90515093230 Active Yolande Lindsay MD PhD Active TRIAMCINOLONE ACETONIDE 0.1 % CREA apply bid sparingly to rash TRIAMCINOLONE ACETONIDE 75595282559 Active Yolande Lindsay MD PhD Active FUROSEMIDE 20 MG TAB 1 tablet by mouth daily FUROSEMIDE 86385547004 Active Yolande Lindsay MD PhD Active LISINOPRIL 20 MG ORAL TABS 1 tab by mouth daily LISINOPRIL 43428199688 Active Gab Padron MD Active FUROSEMIDE 20 MG TABS 1 pill by mouth daily, for edema FUROSEMIDE 91737245599 No Longer Active Yolande Lindsay MD PhD Active ATORVASTATIN CALCIUM 10 MG TABS 1 pill by mouth daily, for cholesterol 09/06 ATORVASTATIN CALCIUM 20976722211 Active Yolande Lindsay MD PhD Active CALCIUM 600+D PLUS MINERALS 600-400 MG-UNIT ORAL CHEW 1 tab by mouth daily CALCIUM CARBONATE-VIT D-MIN 14525465648 No Longer Active Yolande Lindsay MD PhD Active CYCLOBENZAPRINE HCL 10 MG TABS 1 tablet by mouth three times daily as needed for muscle spasm/pain CYCLOBENZAPRINE HCL 86715796596 Active Yolande Lindsay MD PhD Active ONDANSETRON 4 MG TBDP 1 q4h PRN nausea ONDANSETRON 80833847721 Active Yolande Lindsay MD PhD Active ADULT ASPIRIN EC LOW STRENGTH 81 MG TBEC Take 1 tablet by mouth daily 2014 ASPIRIN 38440330101 No Longer Active Yolande Lindsay MD PhD Active ZOFRAN ODT 4 MG TBDP 1 pill dissolved by mouth every 4 hours if needed for nausea ONDANSETRON 79692197386 No Longer Active Yolande Lindsay MD PhD Active CEFTIN 500 MG TAB 1 twice a day CEFUROXIME AXETIL 28345105042 No Longer Active Yolande Lindsay MD PhD Active ALBUTEROL SULFATE 0.083 % NEBU SOLN one vial per nebulizer every 4-6 hours as needed ALBUTEROL SULFATE 99668160207 No Longer Active Alexis Ordaz MD Active DOXYCYCLINE HYCLATE 100 MG CAP 1 cap by mouth twice daily DOXYCYCLINE HYCLATE 21059690126 No Longer Active Yolande Lindsay MD PhD Active CYCLOBENZAPRINE HCL 10 MG TABS 1/2 - 1 tab by mouth three times daily if needed for spasms/pain CYCLOBENZAPRINE HCL 14703149347 No Longer Active Yolande Lindsay MD PhD Active AZITHROMYCIN 250 MG TABS 2 pills on day 1, then 1 pill daily x 4 days AZITHROMYCIN 12841076145 No Longer Active Yolande Lindsay MD PhD Active XOPENEX 1.25 MG/3ML NEBU 1 neb every 4 hours if needed for cough/congestion LEVALBUTEROL HCL 46038586410 No Longer Active Yolande Lindsay MD PhD Active DOXYCYCLINE HYCLATE 100 MG TAB 1 tab twice a day for 14 days 2013 DOXYCYCLINE HYCLATE 16600014462 No Longer Active Yolande Lindsay MD PhD Active LEVOTHYROXINE SODIUM 75 MCG TABS Take 1 tab daily LEVOTHYROXINE SODIUM 23940024392 Active Gab Padron MD Active PREVACID 30 MG CPDR Take 1 tablet by mouth daily-PRN LANSOPRAZOLE 32692787328 No Longer Active Yolande Lindsay MD PhD Active PA VITAMIN D-3 2000 UNIT CAPS 1 CAP PO DAILY CHOLECALCIFEROL 97376156531 No Longer Active Yolande Lindsay MD PhD Active CEFDINIR 300 MG CAPS by mouth twice a day CEFDINIR 53893340310 No Longer Active Gab Padron MD Active TOPAMAX 50 MG TABS 1 PO twice daily TOPIRAMATE 49856012557 Active Yolande Lindsay MD PhD Active AZITHROMYCIN 250 MG TABS 2 po qd x 1 day, then 1 po qd x 4 days AZITHROMYCIN 59755043628 No Longer Active Yolande Lindsay MD PhD Active DICLOFENAC SODIUM 75 MG TBEC 1 tablet by q 12 hours PRN headaches DICLOFENAC SODIUM 60139685245 No Longer Active Yolande Lindsay MD PhD Active FLONASE 50 MCG/ACT SUSP 1 spray each nostril am and hs FLUTICASONE PROPIONATE 27180273286 No Longer Active Todd Callaway MD Active ANUSOL-HC 25 MG SUPPOSITORY 1 rectally twice a day as needed for hemorrhoids HYDROCORTISONE JAYDEN (RECTAL) 60115086486 No Longer Active Yolande Lindsay MD PhD Active ANUSOL-HC 25 MG SUPPOSITORY 1 suppository rectally each evening as needed for anal fissure HYDROCORTISONE JAYDEN (RECTAL) 89753298095 No Longer Active LONNIE Iglesias Active VALIUM 5 MG TAB 1 po 30 minutes prior to your MRI DIAZEPAM 79894075026 No Longer Active EdenLONNIE Collazo Active METHOCARBAMOL 750 MG TABS 1 PO QID PRN METHOCARBAMOL 85830355575 No Longer Active Daphne Wetzel APRN Active NITROSTAT 0.4 MG SUBL as directed NITROGLYCERIN 00853126111 No Longer Active Rodrigo Sarah BURN OUT SCARFING OPERATOR Active ROBAXIN-750 750 MG TABS 2 four times a day for 3 days as needed for muscle spasm, then 1 four times a day as needed METHOCARBAMOL 94152234238 No Longer Active Rodrigo Sarah APRN Active HYDROCODONE-ACETAMINOPHEN 5-325 MG TABS 1 q 4-6 hrs prn HYDROCODONE-ACETAMINOPHEN 44610652052 No Longer Active Silvestrellnacho Sarah APRN Active VERAPAMIL HCL CR 180 MG CR-TABS TAKE 1 TAB DAILY VERAPAMIL HCL 60104883141 No Longer Active Yolande Lindsay MD PhD Active BACTRIM DS 800-160 MG TAB 1 tab by mouth twice daily TRIMETHOPRIM-SULFAMETHOXAZOLE 62590910994 No Longer Active Yolande Lindsay MD PhD Active NEXIUM 40 MG PACK 1 by mouth daily ESOMEPRAZOLE MAGNESIUM 02693810279 No Longer Active Des Hines MD Active EPIPEN 2-CHARLETTE 0.3 MG/0.3ML OMARI as need for allergic reaction EPINEPHRINE 97706578971 Active Yolande Lindsay MD PhD Active NEXIUM 40 MG CPDR 1 PO Q D DAY ESOMEPRAZOLE MAGNESIUM 54127206718 No Longer Active Sadia Perry RN Active NEXIUM 40 MG PACK 1 by mouth daily NEXIUM 40 MG PACK ESOMEPRAZOLE MAGNESIUM Inactive VERAPAMIL HCL CR 180 MG CR-TABS TAKE 1 TAB DAILY VERAPAMIL HCL CR 180 MG CR-TABS VERAPAMIL HCL Inactive HYDROCODONE-ACETAMINOPHEN 5-325 MG TABS 1 q 4-6 hrs prn HYDROCODONE-ACETAMINOPHEN 5-325 MG TABS 446562 HYDROCODONE-ACETAMINOPHEN Inactive ROBAXIN-750 750 MG TABS 2 four times a day for 3 days as needed for muscle spasm, then 1 four times a day as needed ROBAXIN-750 750 MG TABS 579312 METHOCARBAMOL Inactive NITROSTAT 0.4 MG SUBL as directed NITROSTAT 0.4 MG SUBL NITROGLYCERIN Inactive METHOCARBAMOL 750 MG TABS 1 PO QID PRN METHOCARBAMOL 750 MG TABS 741510 METHOCARBAMOL Inactive VALIUM 5 MG TAB 1 po 30 minutes prior to your MRI VALIUM 5 MG TAB 969766 DIAZEPAM Inactive ANUSOL-HC 25 MG SUPPOSITORY 1 suppository rectally each evening as needed for anal fissure ANUSOL-HC 25 MG SUPPOSITORY 0161406 HYDROCORTISONE JAYDEN (RECTAL) Inactive ANUSOL-HC 25 MG SUPPOSITORY 1 rectally twice a day as needed for hemorrhoids ANUSOL-HC 25 MG SUPPOSITORY 9357192 HYDROCORTISONE JAYDEN (RECTAL) Inactive FLONASE 50 MCG/ACT SUSP 1 spray each nostril am and hs FLONASE 50 MCG/ACT SUSP FLUTICASONE PROPIONATE Inactive DICLOFENAC SODIUM 75 MG TBEC 1 tablet by q 12 hours PRN headaches DICLOFENAC SODIUM 75 MG TBEC 422874 DICLOFENAC SODIUM Inactive PA VITAMIN D-3 2000 UNIT CAPS 1 CAP PO DAILY PA VITAMIN D-3 2000 UNIT CAPS CHOLECALCIFEROL Inactive PREVACID 30 MG CPDR Take 1 tablet by mouth daily-PRN PREVACID 30 MG CPDR 896260 LANSOPRAZOLE Inactive DOXYCYCLINE HYCLATE 100 MG TAB 1 tab twice a day for 14 days 2013 DOXYCYCLINE HYCLATE 100 MG TAB 9730976 DOXYCYCLINE HYCLATE Inactive XOPENEX 1.25 MG/3ML NEBU 1 neb every 4 hours if needed for cough/congestion XOPENEX 1.25 MG/3ML [facility] 928595 LEVALBUTEROL HCL Inactive CYCLOBENZAPRINE HCL 10 MG TABS 1/2 - 1 tab by mouth three times daily if needed for spasms/pain CYCLOBENZAPRINE HCL 10 MG TABS 730733 CYCLOBENZAPRINE HCL Inactive ALBUTEROL SULFATE 0.083 % NEBU SOLN one vial per nebulizer every 4-6 hours as needed ALBUTEROL SULFATE 0.083 % NEBU SOLN 789434 ALBUTEROL SULFATE Inactive CEFTIN 500 MG TAB 1 twice a day CEFTIN 500 MG TAB 218139 CEFUROXIME AXETIL Inactive ZOFRAN ODT 4 MG TBDP 1 pill dissolved by mouth every 4 hours if needed for nausea ZOFRAN ODT 4 MG TBDP 782169 ONDANSETRON Inactive ADULT ASPIRIN EC LOW STRENGTH 81 MG TBEC Take 1 tablet by mouth daily 2014 ADULT ASPIRIN EC LOW STRENGTH 81 MG TBEC 920457 ASPIRIN Inactive CALCIUM 600+D PLUS MINERALS 600-400 [...] or an apple NIACIN 500 MG TABS 697088 NIACIN Inactive NIASPAN 500 MG ORAL CR-TABS 1 pill nightly x 1 week, then 2 pills nightly x 1 week, then 3 pills nightly x 1 week, then 4 pills nightly NIASPAN 500 MG ORAL CR-TABS NIACIN (ANTIHYPERLIPIDEMIC) Inactive OXYCODONE HCL 5 MG ORAL CAPS 1 TAB PO Q HS OXYCODONE HCL 5 MG ORAL CAPS 3161586 OXYCODONE HCL Inactive FLUTICASONE PROPIONATE 50 MCG/ACT SUSP 1 to 2 sprays each nostril daily 04/21 FLUTICASONE PROPIONATE 50 MCG/ACT SUSP 585589 FLUTICASONE PROPIONATE Inactive POLYTRIM 40384-5.1 UNIT/ML-% SOLN 1 gtt to affected eye q3h x 7 days POLYTRIM 65516-5.1 UNIT/ML-% SOLN 931233 POLYMYXIN B- TRIMETHOPRIM Inactive CHERATUSSIN AC 100-10 MG/5ML SYRP 1 tsp by mouth every 4 hours as needed for cough CHERATUSSIN AC 100-10 MG/5ML SYRP 586687 GUAIFENESIN-CODEINE Inactive BACTRIM DS 800-160 MG TAB 1 tab by mouth twice daily BACTRIM DS 800-160 MG TAB 557486 TRIMETHOPRIM-SULFAMETHOXAZOLE Inactive AZITHROMYCIN 250 MG TABS 2 po qd x 1 day, then 1 po qd x 4 days AZITHROMYCIN 250 MG TABS 9722961 AZITHROMYCIN Inactive CEFDINIR 300 MG CAPS by mouth twice a day CEFDINIR 300 MG CAPS 653632 CEFDINIR Inactive AZITHROMYCIN 250 MG TABS 2 pills on day 1, then 1 pill daily x 4 days AZITHROMYCIN 250 MG TABS 9185614 AZITHROMYCIN Inactive DOXYCYCLINE HYCLATE 100 MG CAP 1 cap by mouth twice daily DOXYCYCLINE HYCLATE 100 MG CAP 0950557 DOXYCYCLINE HYCLATE Inactive FUROSEMIDE 20 MG TABS 1 pill by mouth daily, for edema FUROSEMIDE 20 MG TABS 073215 FUROSEMIDE Inactive AZITHROMYCIN 250 MG TABS 2 po qd x 1 day, then 1 po qd x 4 days AZITHROMYCIN 250 MG TABS 5997225 AZITHROMYCIN Inactive CEFTIN 500 MG TAB 1 twice a day CEFTIN 500 MG TAB 264238 CEFUROXIME AXETIL Inactive CEFDINIR 300 MG CAPS 1 po BID x 10 days CEFDINIR 300 MG CAPS 015907 CEFDINIR Inactive Immunizations Vaccine Administration Date Value Standard Description Seasonal influenza vaccine, injectable, containing preservative, for > 3 years old (Afluria, FluLaval, Fluzone, Fluvirin, Fluarix, Agriflu(>=18 yo)) Fluzone (>3 yrs.) [UNH151] Influenza, seasonal, injectable influenza immunization (Flu Vax) has been administered Influenza - Unspecified Formulation [CVX88] influenza virus vaccine, unspecified formulation Seasonal influenza vaccine, injectable, containing preservative, for > 3 years old (Afluria, FluLaval, Fluzone, Fluvirin, Fluarix, Agriflu(>=18 yo)) Fluzone (>3 yrs.) [ZSJ908] Influenza, seasonal, injectable pneumococcal immunization administered Pneumovax 23 [CVX33] pneumococcal polysaccharide vaccine, 23 valent dT (Diphtheria and Tetanus) booster given given Td(adult) unspecified formulation Boostrix (Tetanus toxoid, reduced diphtheria toxoid and acellular pertussis vaccine, adsorbed), booster Boostrix [RPH003] tetanus toxoid, reduced diphtheria toxoid, and acellular [...] Panel - Chemistry sodium, serum 145 mmol/L 044-451 5528/06/22 potassium, serum 3.9 mmol/L 3.5-5.2 chloride, serum 109 mmol/L 98-107 carbon dioxide, venous blood 23.4 mmol/L 21.0-32.0 blood glucose 92 mg/dL 65-110 calcium, serum 8.2 mg/dL 8.5-10.1 urea nitrogen, blood 24 mg/dL 7-18 creatinine, serum 1.30 mg/dL 0.60-1.30 Lab Report: [facility] Advanced Lipid and Inlammation Panel /37168 - Chemistry cholesterol, serum 198 mg/dL 637-205 5965/04/30 HDL cholesterol, serum 65 mg/dL > OR=46 triglyceride, serum, fasting 82 mg/dL LDL cholesterol, serum 117 mg/dL cholesterol/HDL ratio, serum 3.0 calc < OR=5.0 cholesterol, serum 148 mg/dL 115-158 3835/09/02 HDL cholesterol, serum 55 mg/dL > OR=46 [...] (L) - Chemistry sodium, serum 145 mmol/L 909-886 7692/09/02 potassium, serum 4.6 mmol/L 3.5-5.2 chloride, serum [...] 51 mg/dL 30-200 cholesterol, serum 173 mg/dL 651-461 5321/04/28 HDL cholesterol, serum 63 mg/dL 32-96 LDL [...] mg/dL Encounters Code Encounter Date Provider Facility CPT-06934 Level 4 Est. Patient 21:02:30 RETAIL SERVICE REPRESENTATIVE Gab Padron MD [facility] CPT-50802 Level 3 Est. Patient 11:02:19 RETAIL SERVICE REPRESENTATIVE Gab Padron MD [facility] CPT-79908 Level 4 Est. Patient 22:24:31 RETAIL SERVICE REPRESENTATIVE Gab Padron MD [facility] CPT-69302 Level 3 Est. Patient 18:33:46 RETAIL SERVICE REPRESENTATIVE Gab Padron MD [facility] CPT-77949 Level 3 Est. Patient 16:19:11 CDT Yolande Lindsay MD PhD [facility] CPT-52051 Level 3 Est. Patient 18:59:14 CDT Yolande Lindsay MD PhD [facility] CPT-19836 Level 4 Est. Patient 21:29:26 CDT Yolande Lindsay MD PhD [facility] CPT-89079 Level 3 Est. Patient 07:37:45 CDT Yolande Lindsay MD [facility] CPT-10421 Level 3 Est. Patient 17:03:46 CDT Yolande Lindsay MD [facility]-33097 Level 4 Est. Patient 20:02:13 RETAIL SERVICE REPRESENTATIVE Yolande Lindsay MD [facility] CPT-57184 Level 3 Est. Patient 16:02:07 RETAIL SERVICE REPRESENTATIVE Alexis Ordaz MD [facility] CPT-24998 Level 3 Est. Patient 12:41:24 RETAIL SERVICE REPRESENTATIVE Yolande Lindsay MD [facility]-63104 Level 3 Est. Patient 15:41:20 RETAIL SERVICE REPRESENTATIVE Yolande Lindsay MD [facility]-90010 Level 3 Est. Patient 13:20:02 RETAIL SERVICE REPRESENTATIVE Yolande Lindsay MD [facility] CPT-56760 Level 3 Est. Patient 15:00:38 CDT Jared Og MD [facility] CPT-94673 Level 3 Est. Patient 10:22:32 CDT Yolande Lindsay MD [facility] CPT-33566 Level 3 Est. Patient 17:12:58 CDT Yolande Lindsay MD [facility] CPT-85502 Level 4 Est. Patient 13:30:58 CDT Yolande Lindsay MD [facility] CPT-94126 Level 4 New Patient 09:02:42 CDT Jared Og MD [facility] CPT-06261 Level 3 Est. Patient 08:19:07 CDT Yolande Lindsay MD [facility] CPT-37722 Level 3 Est. Patient 12:00:13 RETAIL SERVICE REPRESENTATIVE Gab Padron MD [facility] CPT-36807 Level 3 Est. Patient 16:15:23 RETAIL SERVICE REPRESENTATIVE Yolande Lindsay MD [facility]-93274 Level 2 Est. Patient 19:47:15 CDT Yolande Lindsay MD [facility]-52086 Level 3 Est. Patient 21:38:31 CDT Yolande Lindsay MD [facility]-62061 Level 3 Est. Patient 10:25:12 CDT Adiel PERAZA [facility]-27925 Level 4 Est. Patient 10:51:58 CDT Yolande Lindsay MD [facility]-09594 Level 3 Est. Patient 14:04:55 RETAIL SERVICE REPRESENTATIVE Rodrigo Sarah [facility]-84278 Level 3 Est. Patient 10:46:35 RETAIL SERVICE REPRESENTATIVE Rodrigo aSrah [facility]-66858 Level 3 Est. Patient 14:24:37 RETAIL SERVICE REPRESENTATIVE Yolande Lindsay MD [facility]-32487 Level 3 Est. Patient 17:41:58 RETAIL SERVICE REPRESENTATIVE Yolande Lindsay MD [facility]-23865 Level 2 Est. Patient 22:01:41 RETAIL SERVICE REPRESENTATIVE Rodrigo Sarah [facility]-30671 Level 2 Est. Patient 22:01:11 RETAIL SERVICE REPRESENTATIVE Rodrigo Sarah [facility]-09430 Level 3 Est. Patient 10:12:29 RETAIL SERVICE REPRESENTATIVE Rodrigo Sarah [facility] CPT-23764 Level 3 Est. Patient 11:05:44 CDT Alexis Ordaz MD [facility]-31686 Level 3 Est. Patient 14:57:20 CDT Yolande Lindsay MD [facility]-51702 Level 3 Est. Patient 14:40:57 CDT Yolande Lindsay MD [facility]-64718 Level 3 Est. Patient 20:55:40 CDT Yolande Lindsay MD PhD [facility] CPT-04820 Level 3 Est. Patient 12:42:38 RETAIL SERVICE REPRESENTATIVE Yolande Lindsay MD PhD [facility] CPT-05697 Level 3 Est. Patient 11:54:49 RETAIL SERVICE REPRESENTATIVE Des Hines MD [facility] CPT-96328 Level 3 Est. Patient 17:06:38 CDT Dewayne PERAZA [facility] Procedures Code Procedure Name Date Entry Date Standard Description CPT-42766 LS spine comp w obliq 13:28:00 RETAIL SERVICE REPRESENTATIVE CPT-J1040 Depo Medrol 80 mg (Methyl Prednisolone Acetate) 10:51: 28 RETAIL SERVICE REPRESENTATIVE CPT-J1100 Decadron 8mg (Dexamethasone) 10:51:28 RETAIL SERVICE REPRESENTATIVE CPT-59045 Abx/Therapy Injection 10:51:28 RETAIL SERVICE REPRESENTATIVE CPT-J1100 Decadron 8mg (Dexamethasone) 21:02:30 RETAIL SERVICE REPRESENTATIVE CPT-J1040 Depo Medrol 80 mg (Methyl Prednisolone Acetate) 21:02: 30 RETAIL SERVICE REPRESENTATIVE [id number] Event Monitor - MC Transmission 09:12:32 CDT 08/06 [id number] Event Monitor - MC review and interp 09:12:32 CDT [id number] Event Monitor - MC recording 09:12:32 CDT CPT-65449 EKG Trac and Interp 16:50:22 CDT CPT-J1030 Depo Medrol 40 mg (Methyl Prednisolone Acetate) 17:05: 54 CDT CPT-J1100 Decadron 4mg (Dexamethasone) 17:05:54 CDT CPT-62210 Abx/Therapy Injection 17:05:54 CDT CPT-J1100 Decadron 4mg (Dexamethasone) 16:55:28 CDT CPT-J1030 Depo Medrol 40 mg (Methyl Prednisolone Acetate) 16:55: 28 CDT CPT-63300 Ankle Complete - Min 3V 15:58:50 CDT CPT-74360 Knee 3V 15:58:50 CDT CPT-84854 Hip comp min 2V 15:58:50 CDT CPT-J2270 Morphine Sulfate 10 mg 14:25:44 RETAIL SERVICE REPRESENTATIVE CPT-J2550 Phenergan 12.5 mg (Promethazine) 14:25:44 RETAIL SERVICE REPRESENTATIVE CPT-74987 Abx/Therapy Injection 14:25:44 RETAIL SERVICE REPRESENTATIVE CPT-J2550 Phenergan 12.5 mg (Promethazine) 14:08:03 RETAIL SERVICE REPRESENTATIVE CPT-J2270 Morphine Sulfate 10 mg 14:08:03 RETAIL SERVICE REPRESENTATIVE CPT-88546 Bladder Scan 15:00:38 CDT CPT-TCMM Transitional Care Mgmt-Moderate 09:52:22 CDT CPT-J1030 Depo Medrol 40 mg (Methyl Prednisolone Acetate) 10:55: 18 CDT CPT-J1100 Decadron 4mg (Dexamethasone) 10:55:18 CDT CPT-87895 Abx/Therapy Injection 10:55:18 CDT CPT-J1030 Depo Medrol 40 mg (Methyl Prednisolone Acetate) 10:22: 32 CDT CPT-J1100 Decadron 4mg (Dexamethasone) 10:22:32 CDT CPT-46672 Postop F/U Visit 14:37:13 CDT CPT-73171 Ankle Complete - Min 3V 17:11:58 CDT CPT-88612 Foot comp min 3V 17:11:58 CDT CPT-27361 Bladder Scan 09:56:58 CDT CPT-05741 Postop F/U Visit 09:56:58 CDT CPT-08592 Cystoscopy 09:02:42 CDT CPT-84903 Bladder Scan 09:02:42 CDT CPT-33443 Abd single AP View 16:00:35 CDT CPT-30453 Administration single or combination vaccine inc oral 10 :15:43 CDT CPT-03071 Influenza split virus > age 3 10:15:43 CDT CPT-44352 Nail Avulsion 09:24:57 CDT CPT-OV Office Visit 11:15:41 CDT CPT-68891 Abx/Therapy Injection 10:51:30 CDT CPT-J3301 Kenalog 40 mg (Triamcinolone Acetonide) 10:25:12 CDT CPT-J1100 Decadron 4mg (Dexamethasone) 10:25:12 CDT CPT-43783 Anoscopy diagnostic 10:36:12 CDT CPT-OV Office Visit 15:34:31 CDT CPT-51683 Abx/Therapy Injection 08:21:15 RETAIL SERVICE REPRESENTATIVE CPT-J1885 Toradol 60 mg (Ketorolac) 10:46:35 RETAIL SERVICE REPRESENTATIVE CPT-OV Office Visit 19:51:16 RETAIL SERVICE REPRESENTATIVE CPT-82718 Spec Collection and Handling Fee 14:34:18 RETAIL SERVICE REPRESENTATIVE CPT-PV Prev. Care Visit 14:19:18 RETAIL SERVICE REPRESENTATIVE CPT-13645 Postop F/U Visit 14:47:51 RETAIL SERVICE REPRESENTATIVE CPT-62333 Postop F/U Visit 15:15:14 RETAIL SERVICE REPRESENTATIVE CPT-74157 Postop F/U Visit 14:41:43 CDT CPT-91151 Postop F/U Visit 15:47:46 CDT CPT-OV Office Visit 15:27:23 CDT CPT-OV Office Visit 17:20:34 CDT CPT-72972 Abx/Therapy Injection 15:05:57 CDT CPT-J1100 Decadron 8mg (Dexamethasone) 14:44:57 CDT CPT-J1040 Depo Medrol 80 mg (Methyl Prednisolone Acetate) 14:44: 57 CDT CPT-JTINJ Joint Injection 10:17:37 CDT CPT-62284 Administration 2+ single or combination vaccines inc oral 13:01:46 RETAIL SERVICE REPRESENTATIVE CPT-64372 Administration single or combination vaccine inc oral 13 :01:46 RETAIL SERVICE REPRESENTATIVE CPT-14758 Pneumovax 13:01:46 RETAIL SERVICE REPRESENTATIVE CPT-44171 Influenza split virus > age 3 13:01:46 RETAIL SERVICE REPRESENTATIVE CPT-78687 Administration single or combination vaccine inc oral 08 :56:49 CDT CPT-03417 Tdap 08:56:49 CDT
--- OUTSIDE RECORDS SUMMARY | 2017-03-22 01:27 | XMS REPORT | Clinical Summary ---
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 Jillina Frazellilian PHYS ASSISTANT 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 Anemia 285.9 Active Gab Padron MD Anemia, unspecified Conjunctivitis 372.30 Active Jillnacho Sarah APRN Conjunctivitis, unspecified Sinusitis 473.9 Active Silvestrellina Frazell PHYS ASSISTANT Unspecified sinusitis (chronic) Nonspecific syndrome suggestive of viral illness 079.99 Active Jillina Siml PHYS ASSISTANT Unspecified viral infection Laryngitis 464.00 Active Jillina Farshadzell PHYS ASSISTANT Acute laryngitis without mention of obstruction [...] Flank pain, left 789.09 Active Jillina Siml PHYS ASSISTANT Abdominal pain, other specified site; multiple sites Abdominal pain, generalized 789.07 Active Jillina Siml PHYS ASSISTANT Abdominal pain, generalized Back pain, thoracic region, left 724.1 Active Jillina Farshadzell PHYS ASSISTANT Pain in thoracic spine FOOT PAIN, [...] PhD 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 Take with food IBUPROFEN 33377009574 Active Jillina Frazell PHYS ASSISTANT Active BACTRIM DS 800-160 MG TAB 1 tab by mouth twice daily TRIMETHOPRIM-SULFAMETHOXAZOLE 53943942343 No Longer Active Gab Padron MD Active ADVAIR DISKUS 250-50 MCG/DOSE AEPB 1 puff BID FLUTICASONE- SALMETEROL 27033049029 Active Jillina Frazell PHYS ASSISTANT Active LEVOTHYROXINE SODIUM 75 MCG TABS Take 1 tab daily LEVOTHYROXINE SODIUM 17202389449 No Longer Active Mariana FLEMING Active SYNTHROID 88 MCG ORAL TABS Take one by mouth daily LEVOTHYROXINE SODIUM 56093208569 Active Mariana FLEMING Active CHERATUSSIN AC 100-10 MG/5ML SYRP 1 tsp by mouth every 4 hours as needed for cough GUAIFENESIN-CODEINE 43740965670 No Longer Active Gab Padron MD Active POLYTRIM 89290-6.1 UNIT/ML-% SOLN 1 gtt to affected eye q3h x 7 days POLYMYXIN B-TRIMETHOPRIM 47867519525 No Longer Active Gab Padron MD Active FLUTICASONE PROPIONATE 50 MCG/ACT SUSP 1 to 2 sprays each nostril daily 04/21 FLUTICASONE PROPIONATE 18466341888 No Longer Active Gab Padron MD Active TRILEPTAL 600 MG TABS Take one 1 tablet in Am and 1 tablet at night OXCARBAZEPINE 36664838011 Active Gab Padron MD Active CEFDINIR 300 MG CAPS 1 po BID x 10 days CEFDINIR 30365046316 No Longer Active Rodrigo Sarah APRN Active CEFTIN 500 MG TAB 1 twice a day CEFUROXIME AXETIL 34836848758 No Longer Active Gab Padron MD Active AZITHROMYCIN 250 MG TABS 2 po qd x 1 day, then 1 po qd x 4 days AZITHROMYCIN 17311718392 No Longer Active Rodrigo Sarah APRN Active CLARITIN 10 MG TAB 1 tablet by mouth daily as needed for allergies LORATADINE 09897236055 Active Rodrigo Sarah APRN Active OXYCODONE HCL 5 MG ORAL CAPS 1 TAB PO Q HS OXYCODONE HCL 50045025083 No Longer Active Rodrigo Sarah APRN Active NIASPAN 500 MG ORAL CR-TABS 1 pill nightly x 1 week, then 2 pills nightly x 1 week, then 3 pills nightly x 1 week, then 4 pills nightly NIACIN (ANTIHYPERLIPIDEMIC) 17989078524 No Longer Active Rodrigo Sarah APRN Active NIACIN 500 MG TABS 1 pill by mouth nightly x 1 week, then 2 pills x 1 week, then 3 pills x 1 week, then 4 pills nightly - take after evening meal, with applesauce or an apple NIACIN 39834091569 No Longer Active Yolande Lindsay MD PhD Active FISH OIL 1000 MG CAPS 3 pills daily OMEGA-3 FATTY ACIDS 34883461307 Active Yolande Lindsay MD PhD Active TRIAMCINOLONE ACETONIDE 0.1 % CREA apply bid sparingly to rash TRIAMCINOLONE ACETONIDE 20681122720 Active Yolande Lindsay MD PhD Active FUROSEMIDE 20 MG TAB 1 tablet by mouth daily FUROSEMIDE 15003162514 Active Tisha Lambert PHYS ASSISTANT Active LISINOPRIL 20 MG ORAL TABS 1 tab by mouth daily LISINOPRIL 71158447010 Active Gab Padron MD Active FUROSEMIDE 20 MG TABS 1 pill by mouth daily, for edema FUROSEMIDE 14197114279 No Longer Active Yolande Lindsay MD PhD Active ATORVASTATIN CALCIUM 10 MG TABS 1 pill by mouth daily, for cholesterol 09/06 ATORVASTATIN CALCIUM 89453895251 Active Gab Padron MD Active CALCIUM 600+D PLUS MINERALS 600-400 MG-UNIT ORAL CHEW 1 tab by mouth daily CALCIUM CARBONATE-VIT D-MIN 74530716660 No Longer Active Yolande Lindsay MD PhD Active CYCLOBENZAPRINE HCL 10 MG TABS 1 tablet by mouth three times daily as needed for muscle spasm/pain CYCLOBENZAPRINE HCL 51388996966 Active Yolande Lindsay MD PhD Active ONDANSETRON 4 MG TBDP 1 q4h PRN nausea ONDANSETRON 00067735974 Active Yolande Lindsay MD PhD Active ADULT ASPIRIN EC LOW STRENGTH 81 MG TBEC Take 1 tablet by mouth daily 2014 ASPIRIN 24438716914 No Longer Active Yolande Lindsay MD PhD Active ZOFRAN ODT 4 MG TBDP 1 pill dissolved by mouth every 4 hours if needed for nausea ONDANSETRON 99620111724 No Longer Active Yolande Lindsay MD PhD Active CEFTIN 500 MG TAB 1 twice a day CEFUROXIME AXETIL 47119771913 No Longer Active Yolande Lindsay MD PhD Active ALBUTEROL SULFATE 0.083 % NEBU SOLN one vial per nebulizer every 4-6 hours as needed ALBUTEROL SULFATE 58847634257 No Longer Active Alexis Ordaz MD Active DOXYCYCLINE HYCLATE 100 MG CAP 1 cap by mouth twice daily DOXYCYCLINE HYCLATE 86204827460 No Longer Active Yolande Lindsay MD PhD Active CYCLOBENZAPRINE HCL 10 MG TABS 1/2 - 1 tab by mouth three times daily if needed for spasms/pain CYCLOBENZAPRINE HCL 76426129744 No Longer Active Yolande Lindsay MD PhD Active AZITHROMYCIN 250 MG TABS 2 pills on day 1, then 1 pill daily x 4 days AZITHROMYCIN 77736401702 No Longer Active Yolande Lindsay MD PhD Active XOPENEX 1.25 MG/3ML NEBU 1 neb every 4 hours if needed for cough/congestion LEVALBUTEROL HCL 25584892954 No Longer Active Yolande Lindsay MD PhD Active DOXYCYCLINE HYCLATE 100 MG TAB 1 tab twice a day for 14 days 2013 DOXYCYCLINE HYCLATE 07882396600 No Longer Active Yolande Lindsay MD PhD Active PREVACID 30 MG CPDR Take 1 tablet by mouth daily-PRN LANSOPRAZOLE 39206050167 No Longer Active Yolande Lindsay MD PhD Active PA VITAMIN D-3 2000 UNIT CAPS 1 CAP PO DAILY CHOLECALCIFEROL 61679567771 No Longer Active Yolande Lindsay MD PhD Active CEFDINIR 300 MG CAPS by mouth twice a day CEFDINIR 01797047639 No Longer Active Gab Padron MD Active TOPAMAX 50 MG TABS 1 PO twice daily TOPIRAMATE 17598580150 Active Yolande Lindsay MD PhD Active AZITHROMYCIN 250 MG TABS 2 po qd x 1 day, then 1 po qd x 4 days AZITHROMYCIN 07090773980 No Longer Active Yolande Lindsay MD PhD Active DICLOFENAC SODIUM 75 MG TBEC 1 tablet by q 12 hours PRN headaches DICLOFENAC SODIUM 77137081896 No Longer Active Yolande Lindsay MD PhD Active FLONASE 50 MCG/ACT SUSP 1 spray each nostril am and hs FLUTICASONE PROPIONATE 43286775742 No Longer Active Todd Callaway MD Active ANUSOL-HC 25 MG SUPPOSITORY 1 rectally twice a day as needed for hemorrhoids HYDROCORTISONE JAYDEN (RECTAL) 99439388359 No Longer Active Yoalnde Lindsay MD PhD Active ANUSOL-HC 25 MG SUPPOSITORY 1 suppository rectally each evening as needed for anal fissure HYDROCORTISONE JAYDEN (RECTAL) 62991862755 No Longer Active LONNIE Iglesias Active VALIUM 5 MG TAB 1 po 30 minutes prior to your MRI DIAZEPAM 93697612468 No Longer Active LONNIE Iglesias Active METHOCARBAMOL 750 MG TABS 1 PO QID PRN METHOCARBAMOL 88012037819 No Longer Active Daphne Wetzel PHYS ASSISTANT Active NITROSTAT 0.4 MG SUBL as directed NITROGLYCERIN 49630239381 No Longer Active Rodrigo Sarah APRN Active ROBAXIN-750 750 MG TABS 2 four times a day for 3 days as needed for muscle spasm, then 1 four times a day as needed METHOCARBAMOL 52967849545 No Longer Active Rodrigo Sarah APRN Active HYDROCODONE-ACETAMINOPHEN 5-325 MG TABS 1 q 4-6 hrs prn HYDROCODONE-ACETAMINOPHEN 73289803219 No Longer Active Silvestrellnacho Sarah APRN Active VERAPAMIL HCL CR 180 MG CR-TABS TAKE 1 TAB DAILY VERAPAMIL HCL 65814210177 No Longer Active Yolande Lindsay MD PhD Active BACTRIM DS 800-160 MG TAB 1 tab by mouth twice daily TRIMETHOPRIM-SULFAMETHOXAZOLE 03058667253 No Longer Active Yolande Lindsay MD PhD Active NEXIUM 40 MG PACK 1 by mouth daily ESOMEPRAZOLE MAGNESIUM 17677685862 No Longer Active Des Hines MD Active EPIPEN 2-CHARLETTE 0.3 MG/0.3ML OMARI as need for allergic reaction EPINEPHRINE 85094207941 Active Yolande Lindsay MD PhD Active NEXIUM 40 MG CPDR 1 PO Q D DAY ESOMEPRAZOLE MAGNESIUM 08502397688 No Longer Active Sadia Perry RN Active NEXIUM 40 MG PACK 1 by mouth daily NEXIUM 40 MG PACK ESOMEPRAZOLE MAGNESIUM Inactive VERAPAMIL HCL CR 180 MG CR-TABS TAKE 1 TAB DAILY VERAPAMIL HCL CR 180 MG CR-TABS VERAPAMIL HCL Inactive HYDROCODONE-ACETAMINOPHEN 5-325 MG TABS 1 q 4-6 hrs prn HYDROCODONE-ACETAMINOPHEN 5-325 MG TABS 636348 HYDROCODONE-ACETAMINOPHEN Inactive ROBAXIN-750 750 MG TABS 2 four times a day for 3 days as needed for muscle spasm, then 1 four times a day as needed ROBAXIN-750 750 MG TABS 960784 METHOCARBAMOL Inactive NITROSTAT 0.4 MG SUBL as directed NITROSTAT 0.4 MG SUBL NITROGLYCERIN Inactive METHOCARBAMOL 750 MG TABS 1 PO QID PRN METHOCARBAMOL 750 MG TABS 971658 METHOCARBAMOL Inactive VALIUM 5 MG TAB 1 po 30 minutes prior to your MRI VALIUM 5 MG TAB 006767 DIAZEPAM Inactive ANUSOL-HC 25 MG SUPPOSITORY 1 suppository rectally each evening as needed for anal fissure ANUSOL-HC 25 MG SUPPOSITORY 3424874 HYDROCORTISONE JAYDEN (RECTAL) Inactive ANUSOL-HC 25 MG SUPPOSITORY 1 rectally twice a day as needed for hemorrhoids ANUSOL-HC 25 MG SUPPOSITORY 8546689 HYDROCORTISONE JAYDEN (RECTAL) Inactive FLONASE 50 MCG/ACT SUSP 1 spray each nostril am and hs FLONASE 50 MCG/ACT SUSP FLUTICASONE PROPIONATE Inactive DICLOFENAC SODIUM 75 MG TBEC 1 tablet by q 12 hours PRN headaches DICLOFENAC SODIUM 75 MG TBEC 354708 DICLOFENAC SODIUM Inactive PA VITAMIN D-3 2000 UNIT CAPS 1 CAP PO DAILY PA VITAMIN D-3 2000 UNIT CAPS CHOLECALCIFEROL Inactive PREVACID 30 MG CPDR Take 1 tablet by mouth daily-PRN PREVACID 30 MG CPDR 764382 LANSOPRAZOLE Inactive DOXYCYCLINE HYCLATE 100 MG TAB 1 tab twice a day for 14 days 2013 DOXYCYCLINE HYCLATE 100 MG TAB 6014414 DOXYCYCLINE HYCLATE Inactive XOPENEX 1.25 MG/3ML NEBU 1 neb every 4 hours if needed for cough/congestion XOPENEX 1.25 MG/3ML NEBU 421587 LEVALBUTEROL HCL Inactive CYCLOBENZAPRINE HCL 10 MG TABS 1/2 - 1 tab by mouth three times daily if needed for spasms/pain CYCLOBENZAPRINE HCL 10 MG TABS 450215 CYCLOBENZAPRINE HCL Inactive ALBUTEROL SULFATE 0.083 % NEBU SOLN one vial per nebulizer every 4-6 hours as needed ALBUTEROL SULFATE 0.083 % NEBU SOLN 251508 ALBUTEROL SULFATE Inactive CEFTIN 500 MG TAB 1 twice a day CEFTIN 500 MG TAB 943083 CEFUROXIME AXETIL Inactive ZOFRAN ODT 4 MG TBDP 1 pill dissolved by mouth every 4 hours if needed for nausea ZOFRAN ODT 4 MG TBDP 667369 ONDANSETRON Inactive ADULT ASPIRIN EC LOW STRENGTH 81 MG TBEC Take 1 tablet by mouth daily 2014 ADULT ASPIRIN EC LOW STRENGTH 81 MG TBEC 126616 ASPIRIN Inactive CALCIUM 600+D PLUS MINERALS 600-400 [...] or an apple NIACIN 500 MG TABS 521655 NIACIN Inactive NIASPAN 500 MG ORAL CR-TABS 1 pill nightly x 1 week, then 2 pills nightly x 1 week, then 3 pills nightly x 1 week, then 4 pills nightly NIASPAN 500 MG ORAL CR-TABS NIACIN (ANTIHYPERLIPIDEMIC) Inactive OXYCODONE HCL 5 MG ORAL CAPS 1 TAB PO Q HS OXYCODONE HCL 5 MG ORAL CAPS 2513479 OXYCODONE HCL Inactive FLUTICASONE PROPIONATE 50 MCG/ACT SUSP 1 to 2 sprays each nostril daily 04/21 FLUTICASONE PROPIONATE 50 MCG/ACT SUSP 637406 FLUTICASONE PROPIONATE Inactive POLYTRIM 10072-7.1 UNIT/ML-% SOLN 1 gtt to affected eye q3h x 7 days POLYTRIM 85079-1.1 UNIT/ML-% SOLN 164856 POLYMYXIN B- TRIMETHOPRIM Inactive CHERATUSSIN AC 100-10 MG/5ML SYRP 1 tsp by mouth every 4 hours as needed for cough CHERATUSSIN AC 100-10 MG/5ML SYRP 564593 GUAIFENESIN-CODEINE Inactive LEVOTHYROXINE SODIUM 75 MCG TABS Take 1 tab daily LEVOTHYROXINE SODIUM 75 MCG TABS 579289 LEVOTHYROXINE SODIUM Inactive BACTRIM DS 800-160 MG TAB 1 tab by mouth twice daily BACTRIM DS 800-160 MG TAB 452070 TRIMETHOPRIM-SULFAMETHOXAZOLE Inactive AZITHROMYCIN 250 MG TABS 2 po qd x 1 day, then 1 po qd x 4 days AZITHROMYCIN 250 MG TABS 3030853 AZITHROMYCIN Inactive CEFDINIR 300 MG CAPS by mouth twice a day CEFDINIR 300 MG CAPS 331541 CEFDINIR Inactive AZITHROMYCIN 250 MG TABS 2 pills on day 1, then 1 pill daily x 4 days AZITHROMYCIN 250 MG TABS 7182815 AZITHROMYCIN Inactive DOXYCYCLINE HYCLATE 100 MG CAP 1 cap by mouth twice daily DOXYCYCLINE HYCLATE 100 MG CAP 9547914 DOXYCYCLINE HYCLATE Inactive FUROSEMIDE 20 MG TABS 1 pill by mouth daily, for edema FUROSEMIDE 20 MG TABS 417964 FUROSEMIDE Inactive AZITHROMYCIN 250 MG TABS 2 po qd x 1 day, then 1 po qd x 4 days AZITHROMYCIN 250 MG TABS 7073403 AZITHROMYCIN Inactive CEFTIN 500 MG TAB 1 twice a day CEFTIN 500 MG TAB 349158 CEFUROXIME AXETIL Inactive CEFDINIR 300 MG CAPS 1 po BID x 10 days CEFDINIR 300 MG CAPS 068339 CEFDINIR Inactive BACTRIM DS 800-160 MG TAB 1 tab by mouth twice daily BACTRIM DS 800-160 MG TAB 328935 TRIMETHOPRIM-SULFAMETHOXAZOLE Inactive Immunizations Vaccine Administration Date Value Standard Description Seasonal influenza vaccine, injectable, containing preservative, for > 3 years old (Afluria, FluLaval, Fluzone, Fluvirin, Fluarix, Agriflu(>=18 yo)) Fluzone (>3 yrs.) [LNR813] Influenza, seasonal, injectable influenza immunization (Flu Vax) has been administered Influenza - Unspecified Formulation [CVX88] influenza virus vaccine, unspecified formulation Seasonal influenza vaccine, injectable, containing preservative, for > 3 years old (Afluria, FluLaval, Fluzone, Fluvirin, Fluarix, Agriflu(>=18 yo)) Fluzone (>3 yrs.) [ALJ043] Influenza, seasonal, injectable pneumococcal immunization administered Pneumovax 23 [CVX33] pneumococcal polysaccharide vaccine, 23 valent dT (Diphtheria and Tetanus) booster given given Td(adult) unspecified formulation Boostrix (Tetanus toxoid, reduced diphtheria toxoid and acellular pertussis vaccine, adsorbed), booster Boostrix [ERY256] tetanus toxoid, reduced diphtheria toxoid, and acellular [...] Panel - Chemistry sodium, serum 142 mmol/L 349-771 4445/06/30 potassium, serum 4.4 mmol/L 3.5-5.2 chloride, serum 108 mmol/L 98-107 carbon dioxide, venous blood 25.1 mmol/L 21.0-32.0 blood glucose 82 mg/dL 65-110 calcium, serum 9.1 mg/dL 8.5-10.1 urea nitrogen, blood 18 mg/dL 7-18 creatinine, serum 1.31 mg/dL 0.55-1.30 Lab Report: [facility] Advanced Lipid and Inlammation Panel /88128 - Chemistry cholesterol, serum 148 mg/dL 338-353 6909/09/02 HDL cholesterol, serum 55 mg/dL > OR=46 triglyceride, serum, fasting 67 mg/dL LDL cholesterol, serum 80 mg/dL cholesterol/HDL ratio, serum 2.7 calc < OR=5.0 Lab Report: CBC - Hematology mean corpuscular volume, RBC 84 fL 80-97 hematocrit, blood 33.7 % 36.0-46.0 hemoglobin, blood 10.7 g/dL 12.0-16.0 erythrocyte (RBC) count 4.03 10^6/MM^3 10*6/mm3 4.04-5.48 leukocyte count, blood 5.3 10^3/MM^3 10*3/mm3 4.6-10.2 mean corpuscular hemoglobin, RBC 26.5 pg 27.0-31.2 mean corpuscular hemoglobin concentration, RBC 31.6 G/DL % 31.8- 35.4 red blood cell distribution width 15.7 % 11.6-14.8 platelet count 224 10^3/MM^3 10*3/mm3 142-424 Lab Report: CBC W/DIFF, RapidStrep Rflx/Cx, TIERA INFLUENZA A/B - Hematology red blood cell distribution width 20.2 % 11.6-14.8 leukocyte count, blood 5.3 10^3/MM^3 10*3/mm3 4.6-10.2 hematocrit, blood 33.7 % 36.0-46.0 mean corpuscular volume, RBC 85 fL 80-97 mean corpuscular hemoglobin, RBC 27.7 pg 27.0-31.2 mean corpuscular hemoglobin concentration, RBC 32.4 G/DL % 31.8- 35.4 platelet count 179 10^3/MM^3 10*3/mm3 637-909 7770/03/24 neutrophils as percent of blood leukocytes 64.0 [...] (L) - Chemistry sodium, serum 145 mmol/L 450-021 2826/09/02 potassium, serum 4.6 mmol/L 3.5-5.2 chloride, serum [...] Rate - Chemistry sodium, serum 139 mmol/L 816-080 9709/03/24 carbon dioxide, venous blood 22.4 mmol/L 21.0-32.0 [...] ... - Chemistry sodium, serum 143 mmol/L 532-770 8861/05/02 creatinine, serum 1.21 mg/dL 0.55-1.30 alanine aminotransferase (SGPT), serum 32 U/L -78 aspartate aminotransferase (SGOT), serum 18 U/L 15-37 calcium, serum 8.5 mg/dL 8.5-10.1 bilirubin, serum, total 0.30 mg/dL 0.00-1.00 protein, total urine random Negative mg/dL Negative RBC, urine, dipstick Negative Negative carbon dioxide, venous blood 25.6 mmol/L 21.0-32.0 potassium, serum 4.8 mmol/L 3.5-5.2 chloride, serum 108 mmol/L 98-107 blood glucose 70 mg/dL 65-110 urea nitrogen, blood 20 mg/dL 7-18 TSH 0.63 m[iU]/mL 0.36-3.74 thyroxine, serum, free [...] mg/dL Encounters Code Encounter Date Provider Facility CPT-20141 Level 3 Est. Patient 10:29:41 CDT Rodrigo Sarah APRN [facility] CPT-16356 Level 4 Est. Patient 17:51:05 CDT Gab Padron MD [facility] CPT-10996 Level 3 Est. Patient 14:18:08 CDT Gab Padron MD [facility]-78276 Level 4 Est. Patient 10:18:54 CDT Gab Padron MD [facility]-21644 Level 3 Est. Patient 11:30:07 CDT Rodrigo Sarah APRN [facility]-07704 Level 4 Est. Patient 21:02:30 [employer] Gab Padron MD [facility]-51854 Level 3 Est. Patient 11:02:19 [employer]ACH[employer] Gab Padron MD [facility]-59262 Level 4 Est. Patient 22:24:31 [employer] Gab Padron MD [facility]-61511 Level 3 Est. Patient 18:33:46 [employer]ACH[employer] Gab Padron MD [facility]-55746 Level 3 Est. Patient 16:19:11 CDT Yolande Lindsay MD [facility] CPT-39848 Level 3 Est. Patient 18:59:14 CDT Yolande Lindsay MD [facility]-40269 Level 4 Est. Patient 21:29:26 CDT Yolande Lindsay MD [facility]-39863 Level 3 Est. Patient 07:37:45 CDT Yolande Lindsay MD [facility]-83676 Level 3 Est. Patient 17:03:46 CDT Yolande Lindsay MD [facility]-10921 Level 4 Est. Patient 20:02:13 [employer] Yolande Lindsay MD [facility]-66666 Level 3 Est. Patient 16:02:07 [employer] Alexis Ordaz MD [facility]-68912 Level 3 Est. Patient 12:41:24 [employer]ACHING [employer] Yolande Lindsay MD PhD [facility] CPT-25745 Level 3 Est. Patient 15:41:20 [employer]ACH[employer] Yolande Lindsay MD [facility] CPT-73994 Level 3 Est. Patient 13:20:02 [employer]ACH[employer] Yolande Lindsay MD [facility]-56389 Level 3 Est. Patient 15:00:38 CDT Jared Og MD [facility] CPT-77212 Level 3 Est. Patient 10:22:32 CDT Yolande Lindsay MD [facility] CPT-62613 Level 3 Est. Patient 17:12:58 CDT Yolande Lindsay MD [facility]-20096 Level 4 Est. Patient 13:30:58 CDT Yolande Lindsay MD [facility] CPT-92110 Level 4 New Patient 09:02:42 CDT Jared Og MD [facility]-38948 Level 3 Est. Patient 08:19:07 CDT Yolande Lindsay MD [facility] CPT-27274 Level 3 Est. Patient 12:00:13 [employer] Gab Padron MD [facility] CPT-95705 Level 3 Est. Patient 16:15:23 [employer]ACH[employer] Yolande Lindsay MD [facility] CPT-96626 Level 2 Est. Patient 19:47:15 CDT Yolande Lindsay MD [facility] CPT-55749 Level 3 Est. Patient 21:38:31 CDT Yolande Lindsay MD [facility] CPT-24290 Level 3 Est. Patient 10:25:12 CDT Adiel PERAZA [facility] CPT-95458 Level 4 Est. Patient 10:51:58 CDT Yolande Lindsay MD [facility]-49694 Level 3 Est. Patient 14:04:55 [employer] Rodrigo Sarah [facility] CPT-96003 Level 3 Est. Patient 10:46:35 [employer] Rodrigo Sarah [facility] CPT-97520 Level 3 Est. Patient 14:24:37 [employer] Yolande Lindsay MD [facility] CPT-28833 Level 3 Est. Patient 17:41:58 [employer] Yolande Lindsay MD [facility] CPT-84342 Level 2 Est. Patient 22:01:41 [employer] Rodrigo Sarah [facility] CPT-32832 Level 2 Est. Patient 22:01:11 [employer] Rodrigo Sarah [facility] CPT-44260 Level 3 Est. Patient 10:12:29 [employer]ACH[employer] Rodrigo Sarah [facility] CPT-88416 Level 3 Est. Patient 11:05:44 CDT Alexis Ordaz MD [facility] CPT-62138 Level 3 Est. Patient 14:57:20 CDT Yolande Lindsay MD [facility] CPT-92597 Level 3 Est. Patient 14:40:57 CDT Yolande Lindsay MD [facility] CPT-07220 Level 3 Est. Patient 20:55:40 CDT Yolande Lindsay MD [facility] CPT-98639 Level 3 Est. Patient 12:42:38 [employer] Yolande Lindsay MD [facility]-03458 Level 3 Est. Patient 11:54:49 [employer]ACH[employer] Des Hines MD [facility] CPT-80201 Level 3 Est. Patient 17:06:38 CDT Dewayne PERAZA [facility] Procedures Code Procedure Name Date Entry Date Standard Description CPT-32907 Chest 2V Frontal and Lat - XRAY USE ONLY 10:48:51 CDT CPT-21233 LS spine comp w obliq 13:28:00 [employer] CPT-J1040 Depo Medrol 80 mg (Methyl Prednisolone Acetate) 10:51: 28 [employer] CPT-J1100 Decadron 8mg (Dexamethasone) 10:51:28 [employer] CPT-04109 Abx/Therapy Injection 10:51:28 [employer] CPT-J1100 Decadron 8mg (Dexamethasone) 21:02:30 [employer] CPT-J1040 Depo Medrol 80 mg (Methyl Prednisolone Acetate) 21:02: 30 [employer] [id number] Event Monitor - MC Transmission 09:12:32 CDT 08/06 [id number] Event Monitor - MC review and interp 09:12:32 CDT [id number] Event Monitor - MC recording 09:12:32 CDT CPT-54395 EKG Trac and Interp 16:50:22 CDT CPT-J1030 Depo Medrol 40 mg (Methyl Prednisolone Acetate) 17:05: 54 CDT CPT-J1100 Decadron 4mg (Dexamethasone) 17:05:54 CDT CPT-18217 Abx/Therapy Injection 17:05:54 CDT CPT-J1100 Decadron 4mg (Dexamethasone) 16:55:28 CDT CPT-J1030 Depo Medrol 40 mg (Methyl Prednisolone Acetate) 16:55: 28 CDT CPT-10109 Ankle Complete - Min 3V 15:58:50 CDT CPT-13010 Knee 3V 15:58:50 CDT CPT-39545 Hip comp min 2V 15:58:50 CDT CPT-J2270 Morphine Sulfate 10 mg 14:25:44 [employer] CPT-J2550 Phenergan 12.5 mg (Promethazine) 14:25:44 [employer] CPT-77552 Abx/Therapy Injection 14:25:44 [employer] CPT-J2550 Phenergan 12.5 mg (Promethazine) 14:08:03 [employer] CPT-J2270 Morphine Sulfate 10 mg 14:08:03 [employer] CPT-80023 Bladder Scan 15:00:38 CDT CPT-TCMM Transitional Care Mgmt-Moderate 09:52:22 CDT CPT-J1030 Depo Medrol 40 mg (Methyl Prednisolone Acetate) 10:55: 18 CDT CPT-J1100 Decadron 4mg (Dexamethasone) 10:55:18 CDT CPT-97078 Abx/Therapy Injection 10:55:18 CDT CPT-J1030 Depo Medrol 40 mg (Methyl Prednisolone Acetate) 10:22: 32 CDT CPT-J1100 Decadron 4mg (Dexamethasone) 10:22:32 CDT CPT-12679 Postop F/U Visit 14:37:13 CDT CPT-14352 Ankle Complete - Min 3V 17:11:58 CDT CPT-82243 Foot comp min 3V 17:11:58 CDT CPT-08354 Bladder Scan 09:56:58 CDT CPT-48233 Postop F/U Visit 09:56:58 CDT CPT-32287 Cystoscopy 09:02:42 CDT CPT-03726 Bladder Scan 09:02:42 CDT CPT-21291 Abd single AP View 16:00:35 CDT CPT-83998 Administration single or combination vaccine inc oral 10 :15:43 CDT CPT-86958 Influenza split virus > age 3 10:15:43 CDT CPT-13984 Nail Avulsion 09:24:57 CDT CPT-OV Office Visit 11:15:41 CDT CPT-25636 Abx/Therapy Injection 10:51:30 CDT CPT-J3301 Kenalog 40 mg (Triamcinolone Acetonide) 10:25:12 CDT CPT-J1100 Decadron 4mg (Dexamethasone) 10:25:12 CDT CPT-65537 Anoscopy diagnostic 10:36:12 CDT CPT-OV Office Visit 15:34:31 CDT CPT-56239 Abx/Therapy Injection 08:21:15 [employer] CPT-J1885 Toradol 60 mg (Ketorolac) 10:46:35 [employer] CPT-OV Office Visit 19:51:16 [employer] CPT-03435 Spec Collection and Handling Fee 14:34:18 [employer] CPT-PV Prev. Care Visit 14:19:18 [employer] CPT-11455 Postop F/U Visit 14:47:51 [employer] CPT-51479 Postop F/U Visit 15:15:14 [employer] CPT-65974 Postop F/U Visit 14:41:43 CDT CPT-39668 Postop F/U Visit 15:47:46 CDT CPT-OV Office Visit 15:27:23 CDT CPT-OV Office Visit 17:20:34 CDT CPT-89241 Abx/Therapy Injection 15:05:57 CDT CPT-J1100 Decadron 8mg (Dexamethasone) 14:44:57 CDT CPT-J1040 Depo Medrol 80 mg (Methyl Prednisolone Acetate) 14:44: 57 CDT CPT-JTINJ Joint Injection 10:17:37 CDT CPT-05545 Administration 2+ single or combination vaccines inc oral 13:01:46 [employer] CPT-23744 Administration single or combination vaccine inc oral 13 :01:46 [employer] CPT-95987 Pneumovax 13:01:46 [employer] CPT-60630 Influenza split virus > age 3 13:01:46 [employer] CPT-22365 Administration single or combination vaccine inc oral 08 :56:49 CDT CPT-07564 Tdap 08:56:49 CDT
--- OUTSIDE RECORDS SUMMARY | 2017-03-22 01:28 | XMS REPORT ---
Author Author [facility] [employer] [facility] Medical Staff Organization [facility] [employer] [facility] Address [address] [place] [id number] Phone [phone] Care Team Providers Care Will Call Clerk Name Role Phone LENKA HUTSON, EUNICE PP [phone] Summary purpose TRANSITION OF CARE AUTO GENERATION Chief Complaint and Reason for Visit Admit Diagnosis 1 FEM GENITAL SYMPTOMS NOS Problem list No authorized problems tracked for [...] tests and/or laboratory data RESULTS Radiology Results [id number] Endovaginal Sono PACs Image DATE OF EXAM: Sep 19 2014 [id number] SONO : RADIOLOGY REPORT DATE OF SERVICE: 09/19/14 HISTORY: Pelvic pain PELVIC [id number] HOURS Transabdominal and endovaginal imaging was performed. [...] of a definite pelvic mass. MD DEMI Hubbard/id09/19/2014 10:25: / 09/19/2014 10:30:14 cc:Dr. Vivian Samano This document has been electronically Signed by: On: DATE OF EXAM: Sep 19 2014 [id number] SONO : RADIOLOGY REPORT DATE OF SERVICE: 09/19/14 HISTORY: Pelvic pain PELVIC [id number] HOURS Transabdominal and endovaginal imaging was performed. [...] of a definite pelvic mass. MD DEMI Hubbard/id09/19/2014 10:25: / 09/19/2014 10:30:14 cc:Dr. Vivian Samano This document has been electronically Signed by: ARCENIO NINO On: Sep 19 20145:34P Result Amended on 2014-09-19 at 17:34:28. Previous status was [place]. History of procedures Procedure Code Code Type Description Date Performed Performing Physician [id number] CPT-4 TRANSVAGINAL US, NON-OB 09-19-2014 VIVIAN DUGGAN Functional status No functional or cognitive status [...]
--- OUTSIDE RECORDS SUMMARY | 2017-03-22 01:30 | XMS REPORT | Clinical Summary ---
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 Anemia 285.9 Active Gab Padron MD Anemia, unspecified Conjunctivitis 372.30 Active Jillnacho Sarah APRN Conjunctivitis, unspecified Sinusitis 473.9 Active Silvestrellina Frazell INK PRINTER Unspecified sinusitis (chronic) Nonspecific syndrome suggestive of viral illness 079.99 Active Jillina Frazell INK PRINTER Unspecified viral infection Laryngitis 464.00 Active Jillina Frazell INK PRINTER Acute laryngitis without mention of obstruction Abdominal [...] Flank pain, left 789.09 Active Jillina Frazell INK PRINTER Abdominal pain, other specified site; multiple sites Abdominal pain, generalized 789.07 Active Jillina Farshadzell INK PRINTER Abdominal pain, generalized Back pain, thoracic region, left 724.1 Active Jillina Frazell INK PRINTER Pain in thoracic spine Abdominal pain, left [...] MEDICATIONS ICD-V58.69 Inactive Yolande Lindsay MD PhD ABDOMINAL PAIN, [...] TOENAIL ICD-703.0 Inactive oYlande Lindsay MD PhD INGROWN TOENAIL ICD-703.0 Inactive [...] 1/2 tab daily for 2 days PREDNISONE 95506276293 No Longer Active Gab Padron MD Active ZOFRAN ODT 4 MG TBDP 1 po q6hr PRN Nausea ONDANSETRON 85012204988 Active Rodrigo Sarah INK PRINTER Active IBUPROFEN 600 MG TAB 1 tablet by mouth every 6 hours for 7 days, then 1 tablet every 6 hours as needed. Take with food IBUPROFEN 02488472215 Active Rodrigo Sarah APRN Active BACTRIM DS 800-160 MG TAB 1 tab by mouth twice daily TRIMETHOPRIM-SULFAMETHOXAZOLE 21337256147 No Longer Active Gab Padron MD Active ADVAIR DISKUS 250-50 MCG/DOSE AEPB 1 puff BID FLUTICASONE- SALMETEROL 42582499019 Active Rodrigo Sarah APRN Active LEVOTHYROXINE SODIUM 75 MCG TABS Take 1 tab daily LEVOTHYROXINE SODIUM 47461881773 No Longer Active Mariana Cuadra RMA Active SYNTHROID 88 MCG ORAL TABS Take one by mouth daily LEVOTHYROXINE SODIUM 91777367957 Active Tisha Lambert APRN Active CHERATUSSIN AC 100-10 MG/5ML SYRP 1 tsp by mouth every 4 hours as needed for cough GUAIFENESIN-CODEINE 07531888044 No Longer Active Gab Padron MD Active POLYTRIM 66913-7.1 UNIT/ML-% SOLN 1 gtt to affected eye q3h x 7 days POLYMYXIN B-TRIMETHOPRIM 15364333467 No Longer Active Gba Padron MD Active FLUTICASONE PROPIONATE 50 MCG/ACT SUSP 1 to 2 sprays each nostril daily 04/21 FLUTICASONE PROPIONATE 82344488191 No Longer Active Gab Padron MD Active TRILEPTAL 600 MG TABS Take one 1 tablet in Am and 1 tablet at night OXCARBAZEPINE 16518427437 Active Gab Padron MD Active CEFDINIR 300 MG CAPS 1 po BID x 10 days CEFDINIR 70032810225 No Longer Active Rodrigo Sarah APRN Active CEFTIN 500 MG TAB 1 twice a day CEFUROXIME AXETIL 15484879411 No Longer Active Gab Padron MD Active AZITHROMYCIN 250 MG TABS 2 po qd x 1 day, then 1 po qd x 4 days AZITHROMYCIN 13958005109 No Longer Active Rodrigo Sarah APRN Active CLARITIN 10 MG TAB 1 tablet by mouth daily as needed for allergies LORATADINE 91001971196 Active Rodrigo Sarah APRN Active OXYCODONE HCL 5 MG ORAL CAPS 1 TAB PO Q HS OXYCODONE HCL 57773855793 No Longer Active Rodrigo Sarah APRN Active NIASPAN 500 MG ORAL CR-TABS 1 pill nightly x 1 week, then 2 pills nightly x 1 week, then 3 pills nightly x 1 week, then 4 pills nightly NIACIN (ANTIHYPERLIPIDEMIC) 88122431302 No Longer Active Rodrigo Sarah APRN Active NIACIN 500 MG TABS 1 pill by mouth nightly x 1 week, then 2 pills x 1 week, then 3 pills x 1 week, then 4 pills nightly - take after evening meal, with applesauce or an apple NIACIN 00661926351 No Longer Active Yolande Lindsay MD PhD Active FISH OIL 1000 MG CAPS 3 pills daily OMEGA-3 FATTY ACIDS 19478340880 Active Yolande Lindsay MD PhD Active TRIAMCINOLONE ACETONIDE 0.1 % CREA apply bid sparingly to rash TRIAMCINOLONE ACETONIDE 22663194110 Active Yolande Lindsay MD PhD Active FUROSEMIDE 20 MG TAB 1 tablet by mouth daily FUROSEMIDE 97373960475 Active Tisha Lambert APRN Active LISINOPRIL 20 MG ORAL TABS 1 tab by mouth daily LISINOPRIL 85213833686 Active Tisha Lambert APRN Active FUROSEMIDE 20 MG TABS 1 pill by mouth daily, for edema FUROSEMIDE 04840048187 No Longer Active Yolande Lindsay MD PhD Active ATORVASTATIN CALCIUM 10 MG TABS 1 pill by mouth daily, for cholesterol 09/06 ATORVASTATIN CALCIUM 62359137933 Active Tisha Lambert APRN Active CALCIUM 600+D PLUS MINERALS 600-400 MG-UNIT ORAL CHEW 1 tab by mouth daily CALCIUM CARBONATE-VIT D-MIN 64476854230 No Longer Active Yolande Lindsay MD PhD Active CYCLOBENZAPRINE HCL 10 MG TABS 1 tablet by mouth three times daily as needed for muscle spasm/pain CYCLOBENZAPRINE HCL 44957238722 Active Yolande Lindsay MD PhD Active ONDANSETRON 4 MG TBDP 1 q4h PRN nausea ONDANSETRON 51870400495 Active Yolande Lindsay MD PhD Active ADULT ASPIRIN EC LOW STRENGTH 81 MG TBEC Take 1 tablet by mouth daily 2014 ASPIRIN 89832200337 No Longer Active Yolande Lindsay MD PhD Active ZOFRAN ODT 4 MG TBDP 1 pill dissolved by mouth every 4 hours if needed for nausea ONDANSETRON 13314696539 No Longer Active Yolande Lindsay MD PhD Active CEFTIN 500 MG TAB 1 twice a day CEFUROXIME AXETIL 70394138661 No Longer Active Yolande Lindsay MD PhD Active ALBUTEROL SULFATE 0.083 % NEBU SOLN one vial per nebulizer every 4-6 hours as needed ALBUTEROL SULFATE 09832603387 No Longer Active Alexis Ordaz MD Active DOXYCYCLINE HYCLATE 100 MG CAP 1 cap by mouth twice daily DOXYCYCLINE HYCLATE 63981741310 No Longer Active Yolande Lindsay MD PhD Active CYCLOBENZAPRINE HCL 10 MG TABS 1/2 - 1 tab by mouth three times daily if needed for spasms/pain CYCLOBENZAPRINE HCL 62895101976 No Longer Active Yolande Lindsay MD PhD Active AZITHROMYCIN 250 MG TABS 2 pills on day 1, then 1 pill daily x 4 days AZITHROMYCIN 38445175799 No Longer Active Yolande Lindsay MD PhD Active XOPENEX 1.25 MG/3ML NEBU 1 neb every 4 hours if needed for cough/congestion LEVALBUTEROL HCL 56953385050 No Longer Active Yolande Lindsay MD PhD Active DOXYCYCLINE HYCLATE 100 MG TAB 1 tab twice a day for 14 days 2013 DOXYCYCLINE HYCLATE 74564805733 No Longer Active Yolande Lindsay MD PhD Active PREVACID 30 MG CPDR Take 1 tablet by mouth daily-PRN LANSOPRAZOLE 07739431713 No Longer Active Yolande Lindsay MD PhD Active PA VITAMIN D-3 2000 UNIT CAPS 1 CAP PO DAILY CHOLECALCIFEROL 45510698220 No Longer Active Yolande Lindsay MD PhD Active CEFDINIR 300 MG CAPS by mouth twice a day CEFDINIR 58829741513 No Longer Active Gab Padron MD Active TOPAMAX 50 MG TABS 1 PO twice daily TOPIRAMATE 04976790087 Active Yolande Lindsay MD PhD Active AZITHROMYCIN 250 MG TABS 2 po qd x 1 day, then 1 po qd x 4 days AZITHROMYCIN 19575981811 No Longer Active Yolande Lindsay MD PhD Active DICLOFENAC SODIUM 75 MG TBEC 1 tablet by q 12 hours PRN headaches DICLOFENAC SODIUM 11833530349 No Longer Active Yolande Lindsay MD PhD Active FLONASE 50 MCG/ACT SUSP 1 spray each nostril am and hs FLUTICASONE PROPIONATE 75258128435 No Longer Active Todd Callaway MD Active ANUSOL-HC 25 MG SUPPOSITORY 1 rectally twice a day as needed for hemorrhoids HYDROCORTISONE JAYDEN (RECTAL) 88031253660 No Longer Active Yolande Lindsay MD PhD Active ANUSOL-HC 25 MG SUPPOSITORY 1 suppository rectally each evening as needed for anal fissure HYDROCORTISONE JAYDEN (RECTAL) 22503162097 No Longer Active LONNIE Iglesias Active VALIUM 5 MG TAB 1 po 30 minutes prior to your MRI DIAZEPAM 67136641262 No Longer Active LONNIE Iglesias Active METHOCARBAMOL 750 MG TABS 1 PO QID PRN METHOCARBAMOL 14132971602 No Longer Active Daphne Wetzel APRN Active NITROSTAT 0.4 MG SUBL as directed NITROGLYCERIN 64441508092 No Longer Active Silvestrellina Frahossein ZAPATAN Active ROBAXIN-750 750 MG TABS 2 four times a day for 3 days as needed for muscle spasm, then 1 four times a day as needed METHOCARBAMOL 50137371904 No Longer Active Jillina Frazellilian INK PRINTER Active HYDROCODONE-ACETAMINOPHEN 5-325 MG TABS 1 q 4-6 hrs prn HYDROCODONE-ACETAMINOPHEN 65572184510 No Longer Active Jillina Frazellilian INK PRINTER Active VERAPAMIL HCL CR 180 MG CR-TABS TAKE 1 TAB DAILY VERAPAMIL HCL 03269876952 No Longer Active Yolande Lindsay MD PhD Active BACTRIM DS 800-160 MG TAB 1 tab by mouth twice daily TRIMETHOPRIM-SULFAMETHOXAZOLE 69079135654 No Longer Active Yolande Lindsay MD PhD Active NEXIUM 40 MG PACK 1 by mouth daily ESOMEPRAZOLE MAGNESIUM 33985707195 No Longer Active Des Hines MD Active EPIPEN 2-CHARLETTE 0.3 MG/0.3ML OMARI as need for allergic reaction EPINEPHRINE 27583453580 Active Yolande Lindsay MD PhD Active NEXIUM 40 MG CPDR 1 PO Q D DAY ESOMEPRAZOLE MAGNESIUM 56669845148 No Longer Active Sadia Perry RN Active NEXIUM 40 MG PACK 1 by mouth daily NEXIUM 40 MG PACK ESOMEPRAZOLE MAGNESIUM Inactive VERAPAMIL HCL CR 180 MG CR-TABS TAKE 1 TAB DAILY VERAPAMIL HCL CR 180 MG CR-TABS VERAPAMIL HCL Inactive HYDROCODONE-ACETAMINOPHEN 5-325 MG TABS 1 q 4-6 hrs prn HYDROCODONE-ACETAMINOPHEN 5-325 MG TABS 606581 HYDROCODONE-ACETAMINOPHEN Inactive ROBAXIN-750 750 MG TABS 2 four times a day for 3 days as needed for muscle spasm, then 1 four times a day as needed ROBAXIN-750 750 MG TABS 19780706 METHOCARBAMOL Inactive NITROSTAT 0.4 MG SUBL as directed NITROSTAT 0.4 MG SUBL 336668 NITROGLYCERIN Inactive METHOCARBAMOL 750 MG TABS 1 PO QID PRN METHOCARBAMOL 750 MG TABS 19780706 METHOCARBAMOL Inactive VALIUM 5 MG TAB 1 po 30 minutes prior to your MRI VALIUM 5 MG TAB 807035 DIAZEPAM Inactive ANUSOL-HC 25 MG SUPPOSITORY 1 suppository rectally each evening as needed for anal fissure ANUSOL-HC 25 MG SUPPOSITORY 5978472 HYDROCORTISONE JAYDEN (RECTAL) Inactive ANUSOL-HC 25 MG SUPPOSITORY 1 rectally twice a day as needed for hemorrhoids ANUSOL-HC 25 MG SUPPOSITORY 2753938 HYDROCORTISONE JAYDEN (RECTAL) Inactive FLONASE 50 MCG/ACT SUSP 1 spray each nostril am and hs FLONASE 50 MCG/ACT SUSP FLUTICASONE PROPIONATE Inactive DICLOFENAC SODIUM 75 MG TBEC 1 tablet by q 12 hours PRN headaches DICLOFENAC SODIUM 75 MG TBEC 595583 DICLOFENAC SODIUM Inactive PA VITAMIN D-3 2000 UNIT CAPS 1 CAP PO DAILY PA VITAMIN D-3 2000 UNIT CAPS CHOLECALCIFEROL Inactive PREVACID 30 MG CPDR Take 1 tablet by mouth daily-PRN PREVACID 30 MG CPDR 069361 LANSOPRAZOLE Inactive DOXYCYCLINE HYCLATE 100 MG TAB 1 tab twice a day for 14 days 2013 DOXYCYCLINE HYCLATE 100 MG TAB 5463274 DOXYCYCLINE HYCLATE Inactive XOPENEX 1.25 MG/3ML NEBU 1 neb every 4 hours if needed for cough/congestion XOPENEX 1.25 MG/3ML NEBU 234851 LEVALBUTEROL HCL Inactive CYCLOBENZAPRINE HCL 10 MG TABS 1/2 - 1 tab by mouth three times daily if needed for spasms/pain CYCLOBENZAPRINE HCL 10 MG TABS 189237 CYCLOBENZAPRINE HCL Inactive ALBUTEROL SULFATE 0.083 % NEBU SOLN one vial per nebulizer every 4-6 hours as needed ALBUTEROL SULFATE 0.083 % NEBU SOLN 966020 ALBUTEROL SULFATE Inactive CEFTIN 500 MG TAB 1 twice a day CEFTIN 500 MG TAB 668063 CEFUROXIME AXETIL Inactive ZOFRAN ODT 4 MG TBDP 1 pill dissolved by mouth every 4 hours if needed for nausea ZOFRAN ODT 4 MG TBDP 077166 ONDANSETRON Inactive ADULT ASPIRIN EC LOW STRENGTH 81 MG TBEC Take 1 tablet by mouth daily 2014 ADULT ASPIRIN EC LOW STRENGTH 81 MG TBEC 192434 ASPIRIN Inactive CALCIUM 600+D PLUS MINERALS 600-400 [...] or an apple NIACIN 500 MG TABS 420981 NIACIN Inactive NIASPAN 500 MG ORAL CR-TABS 1 pill nightly x 1 week, then 2 pills nightly x 1 week, then 3 pills nightly x 1 week, then 4 pills nightly NIASPAN 500 MG ORAL CR-TABS NIACIN (ANTIHYPERLIPIDEMIC) Inactive OXYCODONE HCL 5 MG ORAL CAPS 1 TAB PO Q HS OXYCODONE HCL 5 MG ORAL CAPS 7244298 OXYCODONE HCL Inactive FLUTICASONE PROPIONATE 50 MCG/ACT SUSP 1 to 2 sprays each nostril daily 04/21 FLUTICASONE PROPIONATE 50 MCG/ACT SUSP 0921118 FLUTICASONE PROPIONATE Inactive POLYTRIM 42354-6.1 UNIT/ML-% SOLN 1 gtt to affected eye q3h x 7 days POLYTRIM 32840-2.1 UNIT/ML-% SOLN 130003 POLYMYXIN B- TRIMETHOPRIM Inactive CHERATUSSIN AC 100-10 MG/5ML SYRP 1 tsp by mouth every 4 hours as needed for cough CHERATUSSIN AC 100-10 MG/5ML SYRP 395166 GUAIFENESIN-CODEINE Inactive LEVOTHYROXINE SODIUM 75 MCG TABS Take 1 tab daily LEVOTHYROXINE SODIUM 75 MCG TABS 774896 LEVOTHYROXINE SODIUM Inactive BACTRIM DS 800-160 MG TAB 1 tab by mouth twice daily BACTRIM DS 800-160 MG TAB 19820606 TRIMETHOPRIM-SULFAMETHOXAZOLE Inactive AZITHROMYCIN 250 MG TABS 2 po qd x 1 day, then 1 po qd x 4 days AZITHROMYCIN 250 MG TABS 2011744 AZITHROMYCIN Inactive CEFDINIR 300 MG CAPS by mouth twice a day CEFDINIR 300 MG CAPS 20020708 CEFDINIR Inactive AZITHROMYCIN 250 MG TABS 2 pills on day 1, then 1 pill daily x 4 days AZITHROMYCIN 250 MG TABS 8833359 AZITHROMYCIN Inactive DOXYCYCLINE HYCLATE 100 MG CAP 1 cap by mouth twice daily DOXYCYCLINE HYCLATE 100 MG CAP 0737344 DOXYCYCLINE HYCLATE Inactive FUROSEMIDE 20 MG TABS 1 pill by mouth daily, for edema FUROSEMIDE 20 MG TABS 792660 FUROSEMIDE Inactive AZITHROMYCIN 250 MG TABS 2 po qd x 1 day, then 1 po qd x 4 days AZITHROMYCIN 250 MG TABS 4832952 AZITHROMYCIN Inactive CEFTIN 500 MG TAB 1 twice a day CEFTIN 500 MG TAB 618530 CEFUROXIME AXETIL Inactive CEFDINIR 300 MG CAPS [...] for 2 days PREDNISONE 20 MG TAB 872542 PREDNISONE Inactive Immunizations Vaccine Administration Date Value Standard Description Seasonal influenza vaccine, injectable, containing preservative, for > 3 years old (Afluria, FluLaval, Fluzone, Fluvirin, Fluarix, Agriflu(>=18 yo)) Fluzone (>3 yrs.) [JPQ566] Influenza, seasonal, injectable influenza immunization (Flu Vax) has been administered Influenza - Unspecified Formulation [CVX88] influenza virus vaccine, unspecified formulation Seasonal influenza vaccine, injectable, containing preservative, for > 3 years old (Afluria, FluLaval, Fluzone, Fluvirin, Fluarix, Agriflu(>=18 yo)) Fluzone (>3 yrs.) [QTE173] Influenza, seasonal, injectable pneumococcal immunization administered Pneumovax 23 [CVX33] pneumococcal polysaccharide vaccine, 23 valent dT (Diphtheria and Tetanus) booster given given Td(adult) unspecified formulation Boostrix (Tetanus toxoid, reduced diphtheria toxoid and acellular pertussis vaccine, adsorbed), booster Boostrix [EZY920] tetanus toxoid, reduced diphtheria toxoid, and acellular [...] Panel - Chemistry sodium, serum 142 mmol/L 916-303 1247/06/30 potassium, serum 4.4 mmol/L 3.5-5.2 chloride, serum [...] Rate - Chemistry sodium, serum 139 mmol/L 906-413 1885/03/24 carbon dioxide, venous blood 22.4 mmol/L 21.0-32.0 [...] ... - Chemistry sodium, serum 143 mmol/L 752-784 2123/05/02 carbon dioxide, venous blood 25.6 mmol/L 21.0-32.0 [...] PANEL - Chemistry cholesterol, serum 166 mg/dL 478-616 2215/12/06 triglyceride, serum, fasting 86 mg/dL 30-200 HDL [...] dipstick Negative Negative sodium, serum 142 mmol/L 484-234 0790/07/18 carbon dioxide, venous blood 27.8 mmol/L 21.0-32.0 [...] negative Encounters Code Encounter Date Provider Facility CPT-50076 Level 4 Est. Patient 19:55:18 [employer]ILL HOUSE [employer]PER[employer] Jared Og MD [facility] CPT-70671 Level 3 Est. 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 Patient 16:31:27 CDT Gab Padron MD [facility] CPT-06565 Level 2 Est. Patient 12:23:38 CDT Jared Og MD [facility] CPT-31409 Level 3 Est. Patient 11:01:51 CDT Gab Padron MD [facility] CPT-21454 Level 3 Est. Patient 15:27:02 CDT Jared Og MD [facility] CPT-90632 Level 4 Est. Patient 09:25:27 CDT Gab Padron MD [facility] CPT-61008 Level 3 Est. Patient 10:29:41 CDT Rodrigo [facility] CPT-40171 Level 4 Est. Patient 17:51:05 CDT Gab Padron MD [facility] CPT-78955 Level 3 Est. Patient 14:18:08 CDT Gab Padron MD [facility] CPT-04004 Level 4 Est. Patient 10:18:54 CDT Gab Padron MD [facility] CPT-67361 Level 3 Est. Patient 11:30:07 CDT Rodrigo [facility] CPT-02819 Level 4 Est. Patient 21:02:30 [employer]PERVISOR Gab Padron MD [facility] CPT-59817 Level 3 Est. Patient 11:02:19 [employer] HOUSE SUPERVISOR Gab Padron MD [facility] CPT-76247 Level 4 Est. Patient 22:24:31 [employer] HOUSE [employer]PERVISOR Gab Padron MD [facility] CPT-05444 Level 3 Est. Patient 18:33:46 [employer]SE [employer]PER[employer]OR Gab Padron MD [facility]-39816 Level 3 Est. Patient 16:19:11 CDT Yolande Lindsay MD [facility]-15972 Level 3 Est. Patient 18:59:14 CDT Yolande Lindsay MD [facility]-07703 Level 4 Est. Patient 21:29:26 CDT Yolande Lindsay MD [facility]-53947 Level 3 Est. Patient 07:37:45 CDT Yolande Lindsay MD [facility]-51381 Level 3 Est. Patient 17:03:46 CDT Yolande Lindsay MD [facility]-29273 Level 4 Est. Patient 20:02:13 [employer]OR Yolande Lindsay MD [facility]-60753 Level 3 Est. Patient 16:02:07 [employer]SE [employer]PER[employer]OR Alexis Ordaz MD [facility]-58609 Level 3 Est. Patient 12:41:24 [employer] HOUSE [employer]PERVISOR Yolande Lindsay MD [facility]-45281 Level 3 Est. Patient 15:41:20 [employer]PERVISOR Yolande Lindsay MD [facility]-48005 Level 3 Est. Patient 13:20:02 [employer] HOUSE [employer]PERVISOR Yolande Lindsay MD [facility]-24547 Level 3 Est. Patient 15:00:38 CDT Jared Og MD -54586 Level 3 Est. Patient 10:22:32 CDT Yolande Lindsay MD [facility]-68055 Level 3 Est. Patient 17:12:58 CDT Yolande Lindsay MD [facility]-80433 Level 4 Est. Patient 13:30:58 CDT Yolande Lindsay MD PhD [facility] CPT-39399 Level 4 New Patient 09:02:42 CDT Jared Og MD -06617 Level 3 Est. Patient 08:19:07 CDT Yolande Lindsay MD [facility]-89250 Level 3 Est. Patient 12:00:13 [employer]SE [employer] Gab Padron MD [facility]-28914 Level 3 Est. Patient 16:15:23 [employer] HOU[employer]PER[employer] Yolande Lindsay MD [facility]-76978 Level 2 Est. Patient 19:47:15 CDT Yolande Lindsay MD [facility]-01099 Level 3 Est. Patient 21:38:31 CDT Yolande Lindsay MD [facility]-63263 Level 3 Est. Patient 10:25:12 CDT Adiel PERAZA [facility] CPT-06813 Level 4 Est. Patient 10:51:58 CDT Yolande Lindsay MD [facility]-66527 Level 3 Est. Patient 14:04:55 [employer] Rodrigo Sarah [facility] CPT-28811 Level 3 Est. Patient 10:46:35 [employer]PER[employer]OR Rodrigo Sarah [facility]-18938 Level 3 Est. Patient 14:24:37 [employer] HOU[employer]PERVISOR Yolande Lindsay MD [facility]-64753 Level 3 Est. Patient 17:41:58 [employer]SE [employer]PERVISOR Yloande Lindsay MD [facility]-13787 Level 2 Est. Patient 22:01:41 [employer]PER[employer]OR Rodrigo Sarah [facility]-31299 Level 2 Est. Patient 22:01:11 [employer] Rodrigo Sarah [facility] CPT-21040 Level 3 Est. Patient 10:12:29 [employer] Rodrigo Sarah [facility] CPT-55058 Level 3 Est. Patient 11:05:44 CDT Alexis Ordaz MD [facility] CPT-30971 Level 3 Est. Patient 14:57:20 CDT Yolande Lindsay MD [facility] CPT-92616 Level 3 Est. Patient 14:40:57 CDT Yolande Lindsay MD [facility] CPT-39789 Level 3 Est. Patient 20:55:40 CDT Yolande Lindsay MD [facility] CPT-75012 Level 3 Est. Patient 12:42:38 [employer] Yolande Lindsay MD [facility] CPT-80606 Level 3 Est. Patient 11:54:49 [employer] Des Hines MD [facility] CPT-49072 Level 3 Est. Patient 17:06:38 CDT Dewayne PERAZA [facility] Procedures Code Procedure Name Date Entry Date Standard Description CPT-30496 Venipuncture Draw Fee 08:37:59 [employer] CPT-23157 Liver Profile - LAB USE ONLY 08:37:59 [employer] CPT-56110 Lipid - LAB USE ONLY 08:37:58 [employer] CPT-71765 First Vx - Ix admin via ID IM or jet injects without counseling by physician 11:52:31 CDT CPT-38040 Fluzone Preservative Free Intramuscular Suspension 11:52 :31 CDT CPT-24077 Foot, left, comp min 3V - XRAY USE ONLY 09:24:54 CDT CPT-58160 Abd single AP View - XRAY USE ONLY 11:16:17 CDT CPT-57721 T spine AP/ Lat - XRAY USE ONLY 09:34:21 CDT CPT-72751 Chest 2V Frontal and Lat - XRAY USE ONLY 10:48:51 CDT CPT-04583 LS spine comp w obliq 13:28:00 [employer] CPT-J1040 Depo Medrol 80 mg (Methyl Prednisolone Acetate) 10:51: 28 [employer] CPT-J1100 Decadron 8mg (Dexamethasone) 10:51:28 [employer] CPT-46971 Abx/Therapy Injection 10:51:28 [employer] CPT-J1100 Decadron 8mg (Dexamethasone) 21:02:30 [employer] CPT-J1040 Depo Medrol 80 mg (Methyl Prednisolone Acetate) 21:02: 30 [employer] [id number] Event Monitor - MC Transmission 09:12:32 CDT 08/06 [id number] Event Monitor - MC review and interp 09:12:32 CDT [id number] Event Monitor - MC recording 09:12:32 CDT CPT-34629 EKG Trac and Interp 16:50:22 CDT CPT-J1030 Depo Medrol 40 mg (Methyl Prednisolone Acetate) 17:05: 54 CDT CPT-J1100 Decadron 4mg (Dexamethasone) 17:05:54 CDT CPT-46447 Abx/Therapy Injection 17:05:54 CDT CPT-J1100 Decadron 4mg (Dexamethasone) 16:55:28 CDT CPT-J1030 Depo Medrol 40 mg (Methyl Prednisolone Acetate) 16:55: 28 CDT CPT-07263 Ankle Complete - Min 3V 15:58:50 CDT CPT-44785 Knee 3V 15:58:50 CDT CPT-25704 Hip comp min 2V 15:58:50 CDT CPT-J2270 Morphine Sulfate 10 mg 14:25:44 [employer] CPT-J2550 Phenergan 12.5 mg (Promethazine) 14:25:44 [employer] CPT-81766 Abx/Therapy Injection 14:25:44 [employer] CPT-J2550 Phenergan 12.5 mg (Promethazine) 14:08:03 [employer] CPT-J2270 Morphine Sulfate 10 mg 14:08:03 [employer] CPT-21958 Bladder Scan 15:00:38 CDT CPT-TCMM Transitional Care Mgmt-Moderate 09:52:22 CDT CPT-J1030 Depo Medrol 40 mg (Methyl Prednisolone Acetate) 10:55: 18 CDT CPT-J1100 Decadron 4mg (Dexamethasone) 10:55:18 CDT CPT-99795 Abx/Therapy Injection 10:55:18 CDT CPT-J1030 Depo Medrol 40 mg (Methyl Prednisolone Acetate) 10:22: 32 CDT CPT-J1100 Decadron 4mg (Dexamethasone) 10:22:32 CDT CPT-24179 Postop F/U Visit 14:37:13 CDT CPT-97499 Ankle Complete - Min 3V 17:11:58 CDT CPT-59374 Foot comp min 3V 17:11:58 CDT CPT-62156 Bladder Scan 09:56:58 CDT CPT-53416 Postop F/U Visit 09:56:58 CDT CPT-72738 Cystoscopy 09:02:42 CDT CPT-16827 Bladder Scan 09:02:42 CDT CPT-54781 Abd single AP View 16:00:35 CDT CPT-65352 Administration single or combination vaccine inc oral 10 :15:43 CDT CPT-21394 Influenza split virus > age 3 10:15:43 CDT CPT-69996 Nail Avulsion 09:24:57 CDT CPT-OV Office Visit 11:15:41 CDT CPT-56982 Abx/Therapy Injection 10:51:30 CDT CPT-J3301 Kenalog 40 mg (Triamcinolone Acetonide) 10:25:12 CDT CPT-J1100 Decadron 4mg (Dexamethasone) 10:25:12 CDT CPT-00631 Anoscopy diagnostic 10:36:12 CDT CPT-OV Office Visit 15:34:31 CDT CPT-51044 Abx/Therapy Injection 08:21:15 [employer] CPT-J1885 Toradol 60 mg (Ketorolac) 10:46:35 [employer] CPT-OV Office Visit 19:51:16 [employer] CPT-22729 Spec Collection and Handling Fee 14:34:18 [employer] CPT-PV Prev. Care Visit 14:19:18 [employer] CPT-83818 Postop F/U Visit 14:47:51 [employer] CPT-41194 Postop F/U Visit 15:15:14 [employer] CPT-85909 Postop F/U Visit 14:41:43 CDT CPT-10464 Postop F/U Visit 15:47:46 CDT CPT-OV Office Visit 15:27:23 CDT CPT-OV Office Visit 17:20:34 CDT CPT-10963 Abx/Therapy Injection 15:05:57 CDT CPT-J1100 Decadron 8mg (Dexamethasone) 14:44:57 CDT CPT-J1040 Depo Medrol 80 mg (Methyl Prednisolone Acetate) 14:44: 57 CDT CPT-JTINJ Joint Injection 10:17:37 CDT CPT-03938 Administration 2+ single or combination vaccines inc oral 13:01:46 [employer] CPT-15975 Administration single or combination vaccine inc oral 13 :01:46 [employer] CPT-53876 Pneumovax 13:01:46 [employer] CPT-06108 Influenza split virus > age 3 13:01:46 [employer] CPT-26233 Administration single or combination vaccine inc oral 08 :56:49 CDT CPT-35379 Tdap 08:56:49 CDT
--- OUTSIDE RECORDS SUMMARY | 2017-03-22 01:33 | XMS REPORT ---
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 Name Role Phone LENKA HUTSON, EUNICE PP [phone] Summary purpose TRANSITION OF CARE AUTO GENERATION [...] diagnostic tests and/or laboratory data RESULTS Routine Cultures [id number]:00 Result Normal Range Units Cervical/ Vaginal/ Urethral See Comments Plate Date and Time 09/30/2014 12:45 SourceVAGINAL CULTURE REPORT Moderate Amount Apparent Normal Tana Release Date/Time: 10/01/2014 07:50 CULTURE REPORT Moderate Amount Apparent Normal Tana Release Date/Time: 10/02/2014 07:28 CULTURE REPORT Moderate Amount Apparent Normal Tana Release Date/Time: 10/03/2014 07:13 GRAM STAIN Occasional Squamous Epithelial Cells 2+ Gram Positive [place] Release Date/Time: 10/01/2014 09:47 Reference Lab (Sendout) [id number]:00 Result Normal Range Units Trichomonas NOT DETECTED NOT DETECTED Gardnerella NOT DETECTED NOT DETECTED Gisselle NOT DETECTED NOT DETECTED TEST PERFORMED AT: [facility] [address] [place] [address] JUAN JOSE PAK DO,MPH History of procedures Procedure Code Code Type Description Date Performed Performing Physician 26898 CPT-4 GISSELLE, DNA, DIR PROBE 09-30-2014 VIVIAN DUGGAN 81921 CPT-4 CHOWDHURY VAG, DNA, DIR PROBE 09-30-2014 VIVIAN DUGGAN 46789 CPT-4 TRICHOMONAS VAGIN, DIR PROBE 09-30-2014 VIVIAN DUGGAN 19346 CPT-4 SMEAR, GRAM STAIN 09-30-2014 VIVIAN DUGGAN 63105 CPT-4 CULTURE, BACTERIA, OTHER 09-30-2014 VIVIAN DUGGAN Functional status No functional or [...]
--- OUTSIDE RECORDS SUMMARY | 2017-03-22 01:33 | XMS REPORT | Clinical Summary ---
Author Author Admin, MARGRET Organization [employer] Address Unknown Phone Unavailable Allergies, Adverse Reactions, Alerts Allergy Name Reaction Description Start Date Severity Status Provider VALENTIN Critical Active Rodrigo Montemayorl [employer]. REPRESENTATIVE CHLORHEXIDINE GLUCONATE tongue and gums swollen Critical Active [facility] NORFLEX Rash Critical Active Silvestrellina Frazell U.S. REPRESENTATIVE TRAZODONE HCL sees things Critical Active [...] Toxic effect of venom URI 465.9 Resolved oYlande Lindsay MD PhD Acute upper respiratory infections [...] Active [facility] Old myocardial infarction Pelvic pain 789.09 Active Yolande Lindsay MD PhD Abdominal pain, other specified site; multiple sites Edema 782.3 Active Yolande Lindsay MD PhD Edema Rash 782.1 Active Yolande Lindsay MD PhD Rash and other nonspecific skin eruption Back pain, lumbar 724.2 Active Gab Padron MD Lumbago Cough 786.2 Active Jillina Tyrel U.S. 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 REPRESENTATIVE 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 Anemia 285.9 Active Gab Padron MD Anemia, unspecified Conjunctivitis 372.30 Active Jillina Tyrel U.S. REPRESENTATIVE Conjunctivitis, unspecified Sinusitis 473.9 Active Jillina Frazell U.S. REPRESENTATIVE Unspecified sinusitis (chronic) Nonspecific syndrome suggestive of viral illness 079.99 Active Rodrigo Sarah APRN Unspecified viral infection Laryngitis 464.00 Active Jillina Tyrel U.S. REPRESENTATIVE Acute laryngitis without mention of obstruction Abdominal [...] PhD Sinusitis, maxillary, acute ICD-461.0 Inactive Yolande Lindsya MD PhD Sinusitis ICD-461.9 [...] TBDP 1 po q6hr PRN Nausea ONDANSETRON 81421164043 Active Jillina Frazell U.S. REPRESENTATIVE Active IBUPROFEN 600 MG TAB 1 tablet by mouth every 6 hours for 7 days, then 1 tablet every 6 hours as needed. Take with food IBUPROFEN 19018263378 Active Jillina Frazell U.S. REPRESENTATIVE Active BACTRIM DS 800-160 MG TAB 1 tab by mouth twice daily TRIMETHOPRIM-SULFAMETHOXAZOLE 31271647267 No Longer Active Gab Padron MD Active ADVAIR DISKUS 250-50 MCG/DOSE AEPB 1 puff BID FLUTICASONE- SALMETEROL 14024790383 Active Jillina Frazell U.S. REPRESENTATIVE Active LEVOTHYROXINE SODIUM 75 MCG TABS Take 1 tab daily LEVOTHYROXINE SODIUM 79691298947 No Longer Active Mariana FLEMING Active SYNTHROID 88 MCG ORAL TABS Take one by mouth daily LEVOTHYROXINE SODIUM 65515057519 Active Mariana FLEMING Active CHERATUSSIN AC 100-10 MG/5ML SYRP 1 tsp by mouth every 4 hours as needed for cough GUAIFENESIN-CODEINE 28455804276 No Longer Active Gab Padron MD Active POLYTRIM 76688-5.1 UNIT/ML-% SOLN 1 gtt to affected eye q3h x 7 days POLYMYXIN B-TRIMETHOPRIM 45157136973 No Longer Active Gab Padron MD Active FLUTICASONE PROPIONATE 50 MCG/ACT SUSP 1 to 2 sprays each nostril daily 04/21 FLUTICASONE PROPIONATE 86994159678 No Longer Active Gab Padron MD Active TRILEPTAL 600 MG TABS Take one 1 tablet in Am and 1 tablet at night OXCARBAZEPINE 99816138890 Active Gab Padron MD Active CEFDINIR 300 MG CAPS 1 po BID x 10 days CEFDINIR 40384919330 No Longer Active Rodrigo Sarah APRN Active CEFTIN 500 MG TAB 1 twice a day CEFUROXIME AXETIL 71773912759 No Longer Active Gab Padron MD Active AZITHROMYCIN 250 MG TABS 2 po qd x 1 day, then 1 po qd x 4 days AZITHROMYCIN 29973459387 No Longer Active Rodrigo Sarah APRN Active CLARITIN 10 MG TAB 1 tablet by mouth daily as needed for allergies LORATADINE 74282670958 Active Silvestrellnacho Sarah APRN Active OXYCODONE HCL 5 MG ORAL CAPS 1 TAB PO Q HS OXYCODONE HCL 56165236578 No Longer Active Rodrigo Sarah APRN Active NIASPAN 500 MG ORAL CR-TABS 1 pill nightly x 1 week, then 2 pills nightly x 1 week, then 3 pills nightly x 1 week, then 4 pills nightly NIACIN (ANTIHYPERLIPIDEMIC) 57416455354 No Longer Active Rodrigo Sarah APRN Active NIACIN 500 MG TABS 1 pill by mouth nightly x 1 week, then 2 pills x 1 week, then 3 pills x 1 week, then 4 pills nightly - take after evening meal, with applesauce or an apple NIACIN 66534234372 No Longer Active Yolande Lindsay MD PhD Active FISH OIL 1000 MG CAPS 3 pills daily OMEGA-3 FATTY ACIDS 46340677173 Active Yolande Lindsay MD PhD Active TRIAMCINOLONE ACETONIDE 0.1 % CREA apply bid sparingly to rash TRIAMCINOLONE ACETONIDE 62955971136 Active Yolande Lindsay MD PhD Active FUROSEMIDE 20 MG TAB 1 tablet by mouth daily FUROSEMIDE 17152819169 Active Tisha Lambert APRN Active LISINOPRIL 20 MG ORAL TABS 1 tab by mouth daily LISINOPRIL 73801546979 Active Gab Padron MD Active FUROSEMIDE 20 MG TABS 1 pill by mouth daily, for edema FUROSEMIDE 26049514702 No Longer Active Yolande Lindsay MD PhD Active ATORVASTATIN CALCIUM 10 MG TABS 1 pill by mouth daily, for cholesterol 09/06 ATORVASTATIN CALCIUM 00996511828 Active Gab Padron MD Active CALCIUM 600+D PLUS MINERALS 600-400 MG-UNIT ORAL CHEW 1 tab by mouth daily CALCIUM CARBONATE-VIT D-MIN 73925150007 No Longer Active Yolande Lindsay MD PhD Active CYCLOBENZAPRINE HCL 10 MG TABS 1 tablet by mouth three times daily as needed for muscle spasm/pain CYCLOBENZAPRINE HCL 99783616955 Active Yolande Lindsay MD PhD Active ONDANSETRON 4 MG TBDP 1 q4h PRN nausea ONDANSETRON 05737452992 Active Yolande Lindsay MD PhD Active ADULT ASPIRIN EC LOW STRENGTH 81 MG TBEC Take 1 tablet by mouth daily 2014 ASPIRIN 98100084745 No Longer Active Yolande Lindsay MD PhD Active ZOFRAN ODT 4 MG TBDP 1 pill dissolved by mouth every 4 hours if needed for nausea ONDANSETRON 19945543913 No Longer Active Yolande Lindsay MD PhD Active CEFTIN 500 MG TAB 1 twice a day CEFUROXIME AXETIL 13585574737 No Longer Active Yolande Lindsay MD PhD Active ALBUTEROL SULFATE 0.083 % NEBU SOLN one vial per nebulizer every 4-6 hours as needed ALBUTEROL SULFATE 93350483725 No Longer Active Alexis Ordaz MD Active DOXYCYCLINE HYCLATE 100 MG CAP 1 cap by mouth twice daily DOXYCYCLINE HYCLATE 83955613107 No Longer Active Yolande Lindsay MD PhD Active CYCLOBENZAPRINE HCL 10 MG TABS 1/2 - 1 tab by mouth three times daily if needed for spasms/pain CYCLOBENZAPRINE HCL 45531593478 No Longer Active Yolande Lindsay MD PhD Active AZITHROMYCIN 250 MG TABS 2 pills on day 1, then 1 pill daily x 4 days AZITHROMYCIN 41236888459 No Longer Active Yolande Lindsay MD PhD Active XOPENEX 1.25 MG/3ML NEBU 1 neb every 4 hours if needed for cough/congestion LEVALBUTEROL HCL 12285798106 No Longer Active Yolande Lindsay MD PhD Active DOXYCYCLINE HYCLATE 100 MG TAB 1 tab twice a day for 14 days 2013 DOXYCYCLINE HYCLATE 54390827576 No Longer Active Yolande Lindsay MD PhD Active PREVACID 30 MG CPDR Take 1 tablet by mouth daily-PRN LANSOPRAZOLE 36331933099 No Longer Active Yolande Lindsay MD PhD Active PA VITAMIN D-3 2000 UNIT CAPS 1 CAP PO DAILY CHOLECALCIFEROL 76945197993 No Longer Active Yolande Lindsay MD PhD Active CEFDINIR 300 MG CAPS by mouth twice a day CEFDINIR 86581704310 No Longer Active Gab Padron MD Active TOPAMAX 50 MG TABS 1 PO twice daily TOPIRAMATE 65797120240 Active Yolande Lindsay MD PhD Active AZITHROMYCIN 250 MG TABS 2 po qd x 1 day, then 1 po qd x 4 days AZITHROMYCIN 83865490154 No Longer Active Yolande Lindsay MD PhD Active DICLOFENAC SODIUM 75 MG TBEC 1 tablet by q 12 hours PRN headaches DICLOFENAC SODIUM 45375499281 No Longer Active Yolande Lindsay MD PhD Active FLONASE 50 MCG/ACT SUSP 1 spray each nostril am and hs FLUTICASONE PROPIONATE 91902073802 No Longer Active Todd Callaway MD Active ANUSOL-HC 25 MG SUPPOSITORY 1 rectally twice a day as needed for hemorrhoids HYDROCORTISONE JAYDEN (RECTAL) 21785354318 No Longer Active Yolande Lindsay MD PhD Active ANUSOL-HC 25 MG SUPPOSITORY 1 suppository rectally each evening as needed for anal fissure HYDROCORTISONE JAYDEN (RECTAL) 72852771108 No Longer Active LONNIE Iglesias Active VALIUM 5 MG TAB 1 po 30 minutes prior to your MRI DIAZEPAM 05870773380 No Longer Active LONNIE Iglesias Active METHOCARBAMOL 750 MG TABS 1 PO QID PRN METHOCARBAMOL 08030325639 No Longer Active Daphne Wetzel APRN Active NITROSTAT 0.4 MG SUBL as directed NITROGLYCERIN 04186019864 No Longer Active Rodrigo Sarah APRN Active ROBAXIN-750 750 MG TABS 2 four times a day for 3 days as needed for muscle spasm, then 1 four times a day as needed METHOCARBAMOL 33858716569 No Longer Active Rodrigo Sarah APRN Active HYDROCODONE-ACETAMINOPHEN 5-325 MG TABS 1 q 4-6 hrs prn HYDROCODONE-ACETAMINOPHEN 26090930182 No Longer Active Rodrigo Sarah APRN Active VERAPAMIL HCL CR 180 MG CR-TABS TAKE 1 TAB DAILY VERAPAMIL HCL 71748347865 No Longer Active Yolande Lindsay MD PhD Active BACTRIM DS 800-160 MG TAB 1 tab by mouth twice daily TRIMETHOPRIM-SULFAMETHOXAZOLE 91237353064 No Longer Active Yolande Lindsay MD PhD Active NEXIUM 40 MG PACK 1 by mouth daily ESOMEPRAZOLE MAGNESIUM 49814391413 No Longer Active Des Hines MD Active EPIPEN 2-CHARLETTE 0.3 MG/0.3ML OMARI as need for allergic reaction EPINEPHRINE 90676716495 Active Yolande Lindsay MD PhD Active NEXIUM 40 MG CPDR 1 PO Q D DAY ESOMEPRAZOLE MAGNESIUM 94099830174 No Longer Active Sadia Perry RN Active NEXIUM 40 MG PACK 1 by mouth daily NEXIUM 40 MG PACK ESOMEPRAZOLE MAGNESIUM Inactive VERAPAMIL HCL CR 180 MG CR-TABS TAKE 1 TAB DAILY VERAPAMIL HCL CR 180 MG CR-TABS VERAPAMIL HCL Inactive HYDROCODONE-ACETAMINOPHEN 5-325 MG TABS 1 q 4-6 hrs prn HYDROCODONE-ACETAMINOPHEN 5-325 MG TABS 889600 HYDROCODONE-ACETAMINOPHEN Inactive ROBAXIN-750 750 MG TABS 2 four times a day for 3 days as needed for muscle spasm, then 1 four times a day as needed ROBAXIN-750 750 MG TABS 977592 METHOCARBAMOL Inactive NITROSTAT 0.4 MG SUBL as directed NITROSTAT 0.4 MG SUBL NITROGLYCERIN Inactive METHOCARBAMOL 750 MG TABS 1 PO QID PRN METHOCARBAMOL 750 MG TABS 991562 METHOCARBAMOL Inactive VALIUM 5 MG TAB 1 po 30 minutes prior to your MRI VALIUM 5 MG TAB 568722 DIAZEPAM Inactive ANUSOL-HC 25 MG SUPPOSITORY 1 suppository rectally each evening as needed for anal fissure ANUSOL-HC 25 MG SUPPOSITORY 6339145 HYDROCORTISONE JAYDEN (RECTAL) Inactive ANUSOL-HC 25 MG SUPPOSITORY 1 rectally twice a day as needed for hemorrhoids ANUSOL-HC 25 MG SUPPOSITORY 6482087 HYDROCORTISONE JAYDEN (RECTAL) Inactive FLONASE 50 MCG/ACT SUSP 1 spray each nostril am and hs FLONASE 50 MCG/ACT SUSP FLUTICASONE PROPIONATE Inactive DICLOFENAC SODIUM 75 MG TBEC 1 tablet by q 12 hours PRN headaches DICLOFENAC SODIUM 75 MG TBEC 543464 DICLOFENAC SODIUM Inactive PA VITAMIN D-3 2000 UNIT CAPS 1 CAP PO DAILY PA VITAMIN D-3 2000 UNIT CAPS CHOLECALCIFEROL Inactive PREVACID 30 MG CPDR Take 1 tablet by mouth daily-PRN PREVACID 30 MG CPDR 403041 LANSOPRAZOLE Inactive DOXYCYCLINE HYCLATE 100 MG TAB 1 tab twice a day for 14 days 2013 DOXYCYCLINE HYCLATE 100 MG TAB 9201378 DOXYCYCLINE HYCLATE Inactive XOPENEX 1.25 MG/3ML NEBU 1 neb every 4 hours if needed for cough/congestion XOPENEX 1.25 MG/3ML NEBU 601737 LEVALBUTEROL HCL Inactive CYCLOBENZAPRINE HCL 10 MG TABS 1/2 - 1 tab by mouth three times daily if needed for spasms/pain CYCLOBENZAPRINE HCL 10 MG TABS 064995 CYCLOBENZAPRINE HCL Inactive ALBUTEROL SULFATE 0.083 % NEBU SOLN one vial per nebulizer every 4-6 hours as needed ALBUTEROL SULFATE 0.083 % NEBU SOLN 732554 ALBUTEROL SULFATE Inactive CEFTIN 500 MG TAB 1 twice a day CEFTIN 500 MG TAB 042605 CEFUROXIME AXETIL Inactive ZOFRAN ODT 4 MG TBDP 1 pill dissolved by mouth every 4 hours if needed for nausea ZOFRAN ODT 4 MG TBDP 821863 ONDANSETRON Inactive ADULT ASPIRIN EC LOW STRENGTH 81 MG TBEC Take 1 tablet by mouth daily 2014 ADULT ASPIRIN EC LOW STRENGTH 81 MG TBEC 785629 ASPIRIN Inactive CALCIUM 600+D PLUS MINERALS 600-400 [...] or an apple NIACIN 500 MG TABS 446099 NIACIN Inactive NIASPAN 500 MG ORAL CR-TABS 1 pill nightly x 1 week, then 2 pills nightly x 1 week, then 3 pills nightly x 1 week, then 4 pills nightly NIASPAN 500 MG ORAL CR-TABS NIACIN (ANTIHYPERLIPIDEMIC) Inactive OXYCODONE HCL 5 MG ORAL CAPS 1 TAB PO Q HS OXYCODONE HCL 5 MG ORAL CAPS 9290660 OXYCODONE HCL Inactive FLUTICASONE PROPIONATE 50 MCG/ACT SUSP 1 to 2 sprays each nostril daily 04/21 FLUTICASONE PROPIONATE 50 MCG/ACT SUSP 337394 FLUTICASONE PROPIONATE Inactive POLYTRIM 33003-7.1 UNIT/ML-% SOLN 1 gtt to affected eye q3h x 7 days POLYTRIM 16142-8.1 UNIT/ML-% SOLN 054689 POLYMYXIN B- TRIMETHOPRIM Inactive CHERATUSSIN AC 100-10 MG/5ML SYRP 1 tsp by mouth every 4 hours as needed for cough CHERATUSSIN AC 100-10 MG/5ML SYRP 500700 GUAIFENESIN-CODEINE Inactive LEVOTHYROXINE SODIUM 75 MCG TABS Take 1 tab daily LEVOTHYROXINE SODIUM 75 MCG TABS 665136 LEVOTHYROXINE SODIUM Inactive BACTRIM DS 800-160 MG TAB 1 tab by mouth twice daily BACTRIM DS 800-160 MG TAB 880655 TRIMETHOPRIM-SULFAMETHOXAZOLE Inactive AZITHROMYCIN 250 MG TABS 2 po qd x 1 day, then 1 po qd x 4 days AZITHROMYCIN 250 MG TABS 7972212 AZITHROMYCIN Inactive CEFDINIR 300 MG CAPS by mouth twice a day CEFDINIR 300 MG CAPS 20020708 CEFDINIR Inactive AZITHROMYCIN 250 MG TABS 2 pills on day 1, then 1 pill daily x 4 days AZITHROMYCIN 250 MG TABS 9927969 AZITHROMYCIN Inactive DOXYCYCLINE HYCLATE 100 MG CAP 1 cap by mouth twice daily DOXYCYCLINE HYCLATE 100 MG CAP 9989495 DOXYCYCLINE HYCLATE Inactive FUROSEMIDE 20 MG TABS 1 pill by mouth daily, for edema FUROSEMIDE 20 MG TABS 111449 FUROSEMIDE Inactive AZITHROMYCIN 250 MG TABS 2 po qd x 1 day, then 1 po qd x 4 days AZITHROMYCIN 250 MG TABS 9886728 AZITHROMYCIN Inactive CEFTIN 500 MG TAB 1 twice a day CEFTIN 500 MG TAB 653566 CEFUROXIME AXETIL Inactive CEFDINIR 300 MG CAPS 1 po BID x 10 days CEFDINIR 300 MG CAPS 20020708 CEFDINIR Inactive BACTRIM DS 800-160 MG TAB 1 tab by mouth twice daily BACTRIM DS 800-160 MG TAB 092673 TRIMETHOPRIM-SULFAMETHOXAZOLE Inactive Immunizations Vaccine Administration Date Value Standard Description Seasonal influenza vaccine, injectable, containing preservative, for > 3 years old (Afluria, FluLaval, Fluzone, Fluvirin, Fluarix, Agriflu(>=18 yo)) Fluzone (>3 yrs.) [TQJ793] Influenza, seasonal, injectable influenza immunization (Flu Vax) has been administered Influenza - Unspecified Formulation [CVX88] influenza virus vaccine, unspecified formulation Seasonal influenza vaccine, injectable, containing preservative, for > 3 years old (Afluria, FluLaval, Fluzone, Fluvirin, Fluarix, Agriflu(>=18 yo)) Fluzone (>3 yrs.) [WGU125] Influenza, seasonal, injectable pneumococcal immunization administered Pneumovax 23 [CVX33] pneumococcal polysaccharide vaccine, 23 valent dT (Diphtheria and Tetanus) booster given given Td(adult) unspecified formulation Boostrix (Tetanus toxoid, reduced diphtheria toxoid and acellular pertussis vaccine, adsorbed), booster Boostrix [KHG698] tetanus toxoid, reduced diphtheria toxoid, and acellular [...] Panel - Chemistry sodium, serum 142 mmol/L 862-504 0341/06/30 potassium, serum 4.4 mmol/L 3.5-5.2 chloride, serum 108 mmol/L 98-107 carbon dioxide, venous blood 25.1 mmol/L 21.0-32.0 blood glucose 82 mg/dL 65-110 calcium, serum 9.1 mg/dL 8.5-10.1 urea nitrogen, blood 18 mg/dL 7-18 creatinine, serum 1.31 mg/dL 0.55-1.30 Lab Report: [facility] Advanced Lipid and Inlammation Panel /45334 - Chemistry cholesterol, serum 148 mg/dL 323-497 3382/09/02 HDL cholesterol, serum 55 mg/dL > OR=46 [...] (L) - Chemistry sodium, serum 145 mmol/L 750-903 8602/09/02 potassium, serum 4.6 mmol/L 3.5-5.2 chloride, serum [...] Rate - Chemistry sodium, serum 139 mmol/L 697-388 6910/03/24 carbon dioxide, venous blood 22.4 mmol/L 21.0-32.0 [...] ... - Chemistry sodium, serum 143 mmol/L 588-528 6562/05/02 carbon dioxide, venous blood 25.6 mmol/L 21.0-32.0 [...] Negative mg/dL Negative sodium, serum 142 mmol/L 443-388 4219/07/18 carbon dioxide, venous blood 27.8 mmol/L 21.0-32.0 [...] mg/dL Encounters Code Encounter Date Provider Facility CPT-71438 Level 3 Est. Patient 15:27:02 CDT Jared Og MD [facility] CPT-16314 Level 4 Est. Patient 09:25:27 CDT Gab Padron MD [facility] CPT-13279 Level 3 Est. Patient 10:29:41 CDT Rodrigo Sarah APRN [facility] CPT-79950 Level 4 Est. Patient 17:51:05 CDT Gab Padron MD [facility] CPT-43689 Level 3 Est. Patient 14:18:08 CDT Gab Padron MD [facility] CPT-10378 Level 4 Est. Patient 10:18:54 CDT Gab Padron MD [facility] CPT-47287 Level 3 Est. Patient 11:30:07 CDT Rodrigo Sarah APRN [facility] CPT-87799 Level 4 Est. Patient 21:02:30 [employer] Gab Padron MD [facility]-32570 Level 3 Est. Patient 11:02:19 [employer] Gab Padron MD [facility]-58122 Level 4 Est. Patient 22:24:31 [employer] Gab Padron MD [facility]-92376 Level 3 Est. Patient 18:33:46 [employer] Gab Padron MD [facility]-91168 Level 3 Est. Patient 16:19:11 CDT Yolande Lindsay MD [facility]-26546 Level 3 Est. Patient 18:59:14 CDT Yolande Lindsay MD [facility]-52601 Level 4 Est. Patient 21:29:26 CDT Yolande Lindsay MD [facility]-14406 Level 3 Est. Patient 07:37:45 CDT Yolande Lindsay MD [facility]-55915 Level 3 Est. Patient 17:03:46 CDT Yolande Lindsay MD [facility]-67356 Level 4 Est. Patient 20:02:13 [employer] Yolande Lindsay MD [facility]-65537 Level 3 Est. Patient 16:02:07 [employer] Alexis Ordaz MD [facility]-83239 Level 3 Est. Patient 12:41:24 [employer] Yolande Lindsay MD [facility]-65141 Level 3 Est. Patient 15:41:20 [employer] Yolande Lindsay MD [facility]-83716 Level 3 Est. Patient 13:20:02 [employer] Yolande Lindsay MD [facility]-01010 Level 3 Est. Patient 15:00:38 CDT Jared Og MD [facility]-43393 Level 3 Est. Patient 10:22:32 CDT Yolande Lindsay MD [facility]-49054 Level 3 Est. Patient 17:12:58 CDT Yolande Lindsay MD [facility]-97823 Level 4 Est. Patient 13:30:58 CDT Yolande Lindsay MD [facility]-28938 Level 4 New Patient 09:02:42 CDT Jared Og MD [facility]-82810 Level 3 Est. Patient 08:19:07 CDT Yolande Lindsay MD [facility]-71976 Level 3 Est. Patient 12:00:13 [employer] Gab Padron MD [facility]-09496 Level 3 Est. Patient 16:15:23 [employer] Yolande Lindsay MD [facility] CPT-48178 Level 2 Est. Patient 19:47:15 CDT Yolande Lindsay MD [facility]-74342 Level 3 Est. Patient 21:38:31 CDT Yolande Lindsay MD [facility]-97815 Level 3 Est. Patient 10:25:12 CDT Adiel PERAZA [facility] CPT-59415 Level 4 Est. Patient 10:51:58 CDT Yolande Lindsay MD [facility]-66936 Level 3 Est. Patient 14:04:55 [employer] Rodrigo Sarah [facility]-18551 Level 3 Est. Patient 10:46:35 [employer] Rodrigo Sarah [facility] CPT-84002 Level 3 Est. Patient 14:24:37 [employer] Yolande Lindsay MD [facility] CPT-30905 Level 3 Est. Patient 17:41:58 [employer] Yolande Lindsay MD [facility]-78000 Level 2 Est. Patient 22:01:41 [employer] Rodrigo Sarah [facility] CPT-60423 Level 2 Est. Patient 22:01:11 [employer] Rodrigo Sarah [facility] CPT-28443 Level 3 Est. Patient 10:12:29 [employer] Rodrigo Sarah [facility] CPT-75870 Level 3 Est. Patient 11:05:44 CDT Alexis Ordaz MD [facility] CPT-45966 Level 3 Est. Patient 14:57:20 CDT Yolande Lindsay MD [facility] CPT-39736 Level 3 Est. Patient 14:40:57 CDT Yolande Lindsay MD [facility] CPT-73583 Level 3 Est. Patient 20:55:40 CDT Yolande Lindsay MD [facility]-89725 Level 3 Est. Patient 12:42:38 [employer] Yolande Lindsay MD [facility]-84947 Level 3 Est. Patient 11:54:49 [employer] Des Hines MD [facility] CPT-41905 Level 3 Est. Patient 17:06:38 CDT Dewayne PERAZA [facility] Procedures Code Procedure Name Date Entry Date Standard Description CPT-37119 T spine AP/ Lat - XRAY USE ONLY 09:34:21 CDT CPT-08024 Chest 2V Frontal and Lat - XRAY USE ONLY 10:48:51 CDT CPT-74118 LS spine comp w obliq 13:28:00 [employer] CPT-J1040 Depo Medrol 80 mg (Methyl Prednisolone Acetate) 10:51: 28 [employer] CPT-J1100 Decadron 8mg (Dexamethasone) 10:51:28 [employer] CPT-01844 Abx/Therapy Injection 10:51:28 [employer] CPT-J1100 Decadron 8mg (Dexamethasone) 21:02:30 [employer] CPT-J1040 Depo Medrol 80 mg (Methyl Prednisolone Acetate) 21:02: 30 [employer] [id number] Event Monitor - MC Transmission 09:12:32 CDT 08/06 [id number] Event Monitor - MC review and interp 09:12:32 CDT [id number] Event Monitor - MC recording 09:12:32 CDT CPT-43319 EKG Trac and Interp 16:50:22 CDT CPT-J1030 Depo Medrol 40 mg (Methyl Prednisolone Acetate) 17:05: 54 CDT CPT-J1100 Decadron 4mg (Dexamethasone) 17:05:54 CDT CPT-08990 Abx/Therapy Injection 17:05:54 CDT CPT-J1100 Decadron 4mg (Dexamethasone) 16:55:28 CDT CPT-J1030 Depo Medrol 40 mg (Methyl Prednisolone Acetate) 16:55: 28 CDT CPT-72011 Ankle Complete - Min 3V 15:58:50 CDT CPT-07449 Knee 3V 15:58:50 CDT CPT-82923 Hip comp min 2V 15:58:50 CDT CPT-J2270 Morphine Sulfate 10 mg 14:25:44 [employer] CPT-J2550 Phenergan 12.5 mg (Promethazine) 14:25:44 [employer] CPT-85134 Abx/Therapy Injection 14:25:44 [employer] CPT-J2550 Phenergan 12.5 mg (Promethazine) 14:08:03 [employer]WORK[employer] CPT-J2270 Morphine Sulfate 10 mg 14:08:03 [employer] CPT-52382 Bladder Scan 15:00:38 CDT CPT-TCMM Transitional Care Mgmt-Moderate 09:52:22 CDT CPT-J1030 Depo Medrol 40 mg (Methyl Prednisolone Acetate) 10:55: 18 CDT CPT-J1100 Decadron 4mg (Dexamethasone) 10:55:18 CDT CPT-25959 Abx/Therapy Injection 10:55:18 CDT CPT-J1030 Depo Medrol 40 mg (Methyl Prednisolone Acetate) 10:22: 32 CDT CPT-J1100 Decadron 4mg (Dexamethasone) 10:22:32 CDT CPT-11057 Postop F/U Visit 14:37:13 CDT CPT-11153 Ankle Complete - Min 3V 17:11:58 CDT CPT-19700 Foot comp min 3V 17:11:58 CDT CPT-39041 Bladder Scan 09:56:58 CDT CPT-86832 Postop F/U Visit 09:56:58 CDT CPT-52717 Cystoscopy 09:02:42 CDT CPT-95765 Bladder Scan 09:02:42 CDT CPT-96979 Abd single AP View 16:00:35 CDT CPT-04947 Administration single or combination vaccine inc oral 10 :15:43 CDT CPT-96110 Influenza split virus > age 3 10:15:43 CDT CPT-24038 Nail Avulsion 09:24:57 CDT CPT-OV Office Visit 11:15:41 CDT CPT-03465 Abx/Therapy Injection 10:51:30 CDT CPT-J3301 Kenalog 40 mg (Triamcinolone Acetonide) 10:25:12 CDT CPT-J1100 Decadron 4mg (Dexamethasone) 10:25:12 CDT CPT-64642 Anoscopy diagnostic 10:36:12 CDT CPT-OV Office Visit 15:34:31 CDT CPT-25243 Abx/Therapy Injection 08:21:15 [employer] CPT-J1885 Toradol 60 mg (Ketorolac) 10:46:35 [employer] CPT-OV Office Visit 19:51:16 [employer] CPT-80767 Spec Collection and Handling Fee 14:34:18 [employer] CPT-PV Prev. Care Visit 14:19:18 [employer] CPT-63105 Postop F/U Visit 14:47:51 [employer] CPT-01961 Postop F/U Visit 15:15:14 [employer] CPT-83458 Postop F/U Visit 14:41:43 CDT CPT-46078 Postop F/U Visit 15:47:46 CDT CPT-OV Office Visit 15:27:23 CDT CPT-OV Office Visit 17:20:34 CDT CPT-89806 Abx/Therapy Injection 15:05:57 CDT CPT-J1100 Decadron 8mg (Dexamethasone) 14:44:57 CDT CPT-J1040 Depo Medrol 80 mg (Methyl Prednisolone Acetate) 14:44: 57 CDT CPT-JTINJ Joint Injection 10:17:37 CDT CPT-94641 Administration 2+ single or combination vaccines inc oral 13:01:46 [employer] CPT-02305 Administration single or combination vaccine inc oral 13 :01:46 [employer] CPT-75881 Pneumovax 13:01:46 [employer] CPT-22490 Influenza split virus > age 3 13:01:46 [employer] CPT-63986 Administration single or combination vaccine inc oral 08 :56:49 CDT CPT-28746 Tdap 08:56:49 CDT
--- OUTSIDE RECORDS SUMMARY | 2017-03-22 01:36 | XMS REPORT | Clinical Summary ---
Author Author Admin, MARGRET Organization [employer] Address Unknown Phone Unavailable Allergies, Adverse Reactions, Alerts Allergy Name Reaction Description Start Date Severity Status Provider VALENTIN Critical Active Rodrigo Montemayorl 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 CHLORHEXIDINE GLUCONATE tongue and gums swollen Critical Active Hoa Kabaford RMA NORFLEX Rash Critical Active Rowenaina Farshadzell 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 TRAZODONE HCL sees things Critical Active Dewayne [...] infarction, hx of 412 Active Hoa Otto [facility] Old myocardial infarction Pelvic pain 789.09 Active Yolande Lindsay MD PhD Abdominal pain, other specified site; multiple sites Edema 782.3 Active Yolande Lindsay MD PhD Edema Rash 782.1 Active Yolande Lindsay MD PhD Rash and other nonspecific skin eruption Back pain, lumbar 724.2 Active Gab Padron MD Lumbago Cough 786.2 Active Jillina Tyrel 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 Cough 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 Jillina Frazellilian ZAPATAN 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 Anemia 285.9 Active Gab Padron MD Anemia, unspecified Conjunctivitis 372.30 Active Jillnacho Sarah APRN Conjunctivitis, unspecified Sinusitis 473.9 Active Jillina Frazell 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 Unspecified sinusitis (chronic) Nonspecific syndrome suggestive of viral illness 079.99 Active Jillina Siml 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 Unspecified viral infection Laryngitis 464.00 Active Jillina Farshadzell [employer]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 Acute laryngitis without mention of obstruction Abdominal [...] Abdominal pain, generalized 789.07 Active Silvestrellina Siml 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 Abdominal pain, generalized Back pain, thoracic region, left 724.1 Active Jillina Frashadzell 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 Pain in thoracic spine Abdominal pain, left [...] Yolande Lindsay MD PhD GERD ICD-530.81 Inactive Yoalnde Lindsay MD PhD 07/16 RECTAL BLEEDING ICD-569.3 [...] ANGIOEDEMA ICD-995.1 Inactive Yolande Lindsay MD PhD Foot pain, [...] left ICD-719.45 Inactive Yolande Lindsay MD PhD Hematuria ICD-599.70 Inactive Yolande Lindsay MD PhD Ankle pain, right ICD-719.47 Inactive Yolande Lindsay MD PhD Medication List Medication Instructions Start Date Stop Date Generic Name NDC Status Provider Patient Instruction PREDNISONE 20 MG TAB 2 tabs daily for 3 days, 1 tab daily for 3 days, 1/2 tab daily for 2 days PREDNISONE 72986235041 No Longer Active Gab Padron MD Active ZOFRAN ODT 4 MG TBDP 1 po q6hr PRN Nausea ONDANSETRON 23851731942 Active Gab Padron MD Active IBUPROFEN 600 MG TAB 1 tablet by mouth every 6 hours for 7 days, then 1 tablet every 6 hours as needed. Take with food IBUPROFEN 28446196153 Active Rodrigo Sarah APRN Active BACTRIM DS 800-160 MG TAB 1 tab by mouth twice daily TRIMETHOPRIM-SULFAMETHOXAZOLE 92451382917 No Longer Active Gab Padron MD Active ADVAIR DISKUS 250-50 MCG/DOSE AEPB 1 puff BID FLUTICASONE- SALMETEROL 19289616064 Active Rodrigo Sarah APRN Active LEVOTHYROXINE SODIUM 75 MCG TABS Take 1 tab daily LEVOTHYROXINE SODIUM 22875401794 No Longer Active Mariana Cuadra RMA Active SYNTHROID 88 MCG ORAL TABS Take one by mouth daily LEVOTHYROXINE SODIUM 17703994807 Active Tisha Lambert APRN Active CHERATUSSIN AC 100-10 MG/5ML SYRP 1 tsp by mouth every 4 hours as needed for cough GUAIFENESIN-CODEINE 96042827165 No Longer Active Gab Padron MD Active POLYTRIM 51046-6.1 UNIT/ML-% SOLN 1 gtt to affected eye q3h x 7 days POLYMYXIN B-TRIMETHOPRIM 38004218719 No Longer Active Gab Padron MD Active FLUTICASONE PROPIONATE 50 MCG/ACT SUSP 1 to 2 sprays each nostril daily 04/21 FLUTICASONE PROPIONATE 84310950899 No Longer Active Gab Padron MD Active TRILEPTAL 600 MG TABS Take one 1 tablet in Am and 1 tablet at night OXCARBAZEPINE 47104656971 Active Gab Padron MD Active CEFDINIR 300 MG CAPS 1 po BID x 10 days CEFDINIR 10952945426 No Longer Active Rodrigo Sarah APRN Active CEFTIN 500 MG TAB 1 twice a day CEFUROXIME AXETIL 46778488874 No Longer Active Gab Padron MD Active AZITHROMYCIN 250 MG TABS 2 po qd x 1 day, then 1 po qd x 4 days AZITHROMYCIN 19126816175 No Longer Active Rodrigo Sarah APRN Active CLARITIN 10 MG TAB 1 tablet by mouth daily as needed for allergies LORATADINE 53399645018 Active Rodrigo Sarah APRN Active OXYCODONE HCL 5 MG ORAL CAPS 1 TAB PO Q HS OXYCODONE HCL 95572986400 No Longer Active Rodrigo Sarah APRN Active NIASPAN 500 MG ORAL CR-TABS 1 pill nightly x 1 week, then 2 pills nightly x 1 week, then 3 pills nightly x 1 week, then 4 pills nightly NIACIN (ANTIHYPERLIPIDEMIC) 62638286587 No Longer Active Rodrigo Sarah APRN Active NIACIN 500 MG TABS 1 pill by mouth nightly x 1 week, then 2 pills x 1 week, then 3 pills x 1 week, then 4 pills nightly - take after evening meal, with applesauce or an apple NIACIN 97813469822 No Longer Active Yolande Lindsay MD PhD Active FISH OIL 1000 MG CAPS 3 pills daily OMEGA-3 FATTY ACIDS 34139212156 Active Yolande Lindsay MD PhD Active TRIAMCINOLONE ACETONIDE 0.1 % CREA apply bid sparingly to rash TRIAMCINOLONE ACETONIDE 50277890726 Active Yolande Lindsay MD PhD Active FUROSEMIDE 20 MG TAB 1 tablet by mouth daily FUROSEMIDE 41008247452 Active Tisha Lambert APRN Active LISINOPRIL 20 MG ORAL TABS 1 tab by mouth daily LISINOPRIL 83305601200 Active Tisha Lambert APRN Active FUROSEMIDE 20 MG TABS 1 pill by mouth daily, for edema FUROSEMIDE 57762305669 No Longer Active Yolande Lindsay MD PhD Active ATORVASTATIN CALCIUM 10 MG TABS 1 pill by mouth daily, for cholesterol 09/06 ATORVASTATIN CALCIUM 83705987661 Active Tisha Lambert APRN Active CALCIUM 600+D PLUS MINERALS 600-400 MG-UNIT ORAL CHEW 1 tab by mouth daily CALCIUM CARBONATE-VIT D-MIN 27545763565 No Longer Active Yolande Lindsay MD PhD Active CYCLOBENZAPRINE HCL 10 MG TABS 1 tablet by mouth three times daily as needed for muscle spasm/pain CYCLOBENZAPRINE HCL 73812937620 Active Yolande Lindsay MD PhD Active ONDANSETRON 4 MG TBDP 1 q4h PRN nausea ONDANSETRON 60268829385 Active Yolande Lindsay MD PhD Active ADULT ASPIRIN EC LOW STRENGTH 81 MG TBEC Take 1 tablet by mouth daily 2014 ASPIRIN 19631380269 No Longer Active Yolande Lindsay MD PhD Active ZOFRAN ODT 4 MG TBDP 1 pill dissolved by mouth every 4 hours if needed for nausea ONDANSETRON 79434323312 No Longer Active Yolande Lindsay MD PhD Active CEFTIN 500 MG TAB 1 twice a day CEFUROXIME AXETIL 04069719879 No Longer Active Yolande Lindsay MD PhD Active ALBUTEROL SULFATE 0.083 % NEBU SOLN one vial per nebulizer every 4-6 hours as needed ALBUTEROL SULFATE 76529273059 No Longer Active Alexis Ordaz MD Active DOXYCYCLINE HYCLATE 100 MG CAP 1 cap by mouth twice daily DOXYCYCLINE HYCLATE 81394879987 No Longer Active Yolande Lindsay MD PhD Active CYCLOBENZAPRINE HCL 10 MG TABS 1/2 - 1 tab by mouth three times daily if needed for spasms/pain CYCLOBENZAPRINE HCL 05797719970 No Longer Active Yolande Lindsay MD PhD Active AZITHROMYCIN 250 MG TABS 2 pills on day 1, then 1 pill daily x 4 days AZITHROMYCIN 87983374420 No Longer Active Yolande Lindsay MD PhD Active XOPENEX 1.25 MG/3ML NEBU 1 neb every 4 hours if needed for cough/congestion LEVALBUTEROL HCL 16941074392 No Longer Active Yolande Lindsay MD PhD Active DOXYCYCLINE HYCLATE 100 MG TAB 1 tab twice a day for 14 days 2013 DOXYCYCLINE HYCLATE 84146873159 No Longer Active Yolande Lindsay MD PhD Active PREVACID 30 MG CPDR Take 1 tablet by mouth daily-PRN LANSOPRAZOLE 17855014013 No Longer Active Yolande Lindsay MD PhD Active PA VITAMIN D-3 2000 UNIT CAPS 1 CAP PO DAILY CHOLECALCIFEROL 87776358573 No Longer Active Yolande Lindsay MD PhD Active CEFDINIR 300 MG CAPS by mouth twice a day CEFDINIR 96234010692 No Longer Active Gab Padron MD Active TOPAMAX 50 MG TABS 1 PO twice daily TOPIRAMATE 99876694112 Active Yolande Lindsay MD PhD Active AZITHROMYCIN 250 MG TABS 2 po qd x 1 day, then 1 po qd x 4 days AZITHROMYCIN 64573947226 No Longer Active Yolande Lindsay MD PhD Active DICLOFENAC SODIUM 75 MG TBEC 1 tablet by q 12 hours PRN headaches DICLOFENAC SODIUM 69348538416 No Longer Active Yolande Lindsay MD PhD Active FLONASE 50 MCG/ACT SUSP 1 spray each nostril am and hs FLUTICASONE PROPIONATE 53705103407 No Longer Active Todd Callaway MD Active ANUSOL-HC 25 MG SUPPOSITORY 1 rectally twice a day as needed for hemorrhoids HYDROCORTISONE JAYDEN (RECTAL) 33396483184 No Longer Active Yolande Lindsay MD PhD Active ANUSOL-HC 25 MG SUPPOSITORY 1 suppository rectally each evening as needed for anal fissure HYDROCORTISONE JAYDEN (RECTAL) 47627998207 No Longer Active LONNIE Iglesias Active VALIUM 5 MG TAB 1 po 30 minutes prior to your MRI DIAZEPAM 11353228414 No Longer Active LONNIE Iglesias Active METHOCARBAMOL 750 MG TABS 1 PO QID PRN METHOCARBAMOL 94171576430 No Longer Active Daphne Wetzel APRN Active NITROSTAT 0.4 MG SUBL as directed NITROGLYCERIN 14472567582 No Longer Active Silvestrellina Frahossein ZAPATAN Active ROBAXIN-750 750 MG TABS 2 four times a day for 3 days as needed for muscle spasm, then 1 four times a day as needed METHOCARBAMOL 43485066091 No Longer Active Jillina Frazellilian 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 Active HYDROCODONE-ACETAMINOPHEN 5-325 MG TABS 1 q 4-6 hrs prn HYDROCODONE-ACETAMINOPHEN 49027949553 No Longer Active Jillina Frazellilian [employer]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 Active VERAPAMIL HCL CR 180 MG CR-TABS TAKE 1 TAB DAILY VERAPAMIL HCL 27713722750 No Longer Active Yolande Lindsya MD PhD Active BACTRIM DS 800-160 MG TAB 1 tab by mouth twice daily TRIMETHOPRIM-SULFAMETHOXAZOLE 95263164407 No Longer Active Yolande Lindsay MD PhD Active NEXIUM 40 MG PACK 1 by mouth daily ESOMEPRAZOLE MAGNESIUM 17484086877 No Longer Active Des Hines MD Active EPIPEN 2-CHARLETTE 0.3 MG/0.3ML OMARI as need for allergic reaction EPINEPHRINE 63010901874 Active Yolande Lindsay MD PhD Active NEXIUM 40 MG CPDR 1 PO Q D DAY ESOMEPRAZOLE MAGNESIUM 86437259340 No Longer Active Sadia Perry RN Active NEXIUM 40 MG PACK 1 by mouth daily NEXIUM 40 MG PACK ESOMEPRAZOLE MAGNESIUM Inactive VERAPAMIL HCL CR 180 MG CR-TABS TAKE 1 TAB DAILY VERAPAMIL HCL CR 180 MG CR-TABS VERAPAMIL HCL Inactive HYDROCODONE-ACETAMINOPHEN 5-325 MG TABS 1 q 4-6 hrs prn HYDROCODONE-ACETAMINOPHEN 5-325 MG TABS 481465 HYDROCODONE-ACETAMINOPHEN Inactive ROBAXIN-750 750 MG TABS 2 four times a day for 3 days as needed for muscle spasm, then 1 four times a day as needed ROBAXIN-750 750 MG TABS 19780706 METHOCARBAMOL Inactive NITROSTAT 0.4 MG SUBL as directed NITROSTAT 0.4 MG SUBL 767919 NITROGLYCERIN Inactive METHOCARBAMOL 750 MG TABS 1 PO QID PRN METHOCARBAMOL 750 MG TABS 19780706 METHOCARBAMOL Inactive VALIUM 5 MG TAB 1 po 30 minutes prior to your MRI VALIUM 5 MG TAB 204701 DIAZEPAM Inactive ANUSOL-HC 25 MG SUPPOSITORY 1 suppository rectally each evening as needed for anal fissure ANUSOL-HC 25 MG SUPPOSITORY 6838278 HYDROCORTISONE JAYDEN (RECTAL) Inactive ANUSOL-HC 25 MG SUPPOSITORY 1 rectally twice a day as needed for hemorrhoids ANUSOL-HC 25 MG SUPPOSITORY 7708648 HYDROCORTISONE JAYDEN (RECTAL) Inactive FLONASE 50 MCG/ACT SUSP 1 spray each nostril am and hs FLONASE 50 MCG/ACT SUSP FLUTICASONE PROPIONATE Inactive DICLOFENAC SODIUM 75 MG TBEC 1 tablet by q 12 hours PRN headaches DICLOFENAC SODIUM 75 MG TBEC 560552 DICLOFENAC SODIUM Inactive PA VITAMIN D-3 2000 UNIT CAPS 1 CAP PO DAILY PA VITAMIN D-3 2000 UNIT CAPS CHOLECALCIFEROL Inactive PREVACID 30 MG CPDR Take 1 tablet by mouth daily-PRN PREVACID 30 MG CPDR 230743 LANSOPRAZOLE Inactive DOXYCYCLINE HYCLATE 100 MG TAB 1 tab twice a day for 14 days 2013 DOXYCYCLINE HYCLATE 100 MG TAB 2953696 DOXYCYCLINE HYCLATE Inactive XOPENEX 1.25 MG/3ML NEBU 1 neb every 4 hours if needed for cough/congestion XOPENEX 1.25 MG/3ML NEBU 282722 LEVALBUTEROL HCL Inactive CYCLOBENZAPRINE HCL 10 MG TABS 1/2 - 1 tab by mouth three times daily if needed for spasms/pain CYCLOBENZAPRINE HCL 10 MG TABS 898939 CYCLOBENZAPRINE HCL Inactive ALBUTEROL SULFATE 0.083 % NEBU SOLN one vial per nebulizer every 4-6 hours as needed ALBUTEROL SULFATE 0.083 % NEBU SOLN 178264 ALBUTEROL SULFATE Inactive CEFTIN 500 MG TAB 1 twice a day CEFTIN 500 MG TAB 584670 CEFUROXIME AXETIL Inactive ZOFRAN ODT 4 MG TBDP 1 pill dissolved by mouth every 4 hours if needed for nausea ZOFRAN ODT 4 MG TBDP 587874 ONDANSETRON Inactive ADULT ASPIRIN EC LOW STRENGTH 81 MG TBEC Take 1 tablet by mouth daily 2014 ADULT ASPIRIN EC LOW STRENGTH 81 MG TBEC 626999 ASPIRIN Inactive CALCIUM 600+D PLUS MINERALS 600-400 [...] or an apple NIACIN 500 MG TABS 331058 NIACIN Inactive NIASPAN 500 MG ORAL CR-TABS 1 pill nightly x 1 week, then 2 pills nightly x 1 week, then 3 pills nightly x 1 week, then 4 pills nightly NIASPAN 500 MG ORAL CR-TABS NIACIN (ANTIHYPERLIPIDEMIC) Inactive OXYCODONE HCL 5 MG ORAL CAPS 1 TAB PO Q HS OXYCODONE HCL 5 MG ORAL CAPS 3824063 OXYCODONE HCL Inactive FLUTICASONE PROPIONATE 50 MCG/ACT SUSP 1 to 2 sprays each nostril daily 04/21 FLUTICASONE PROPIONATE 50 MCG/ACT SUSP 8768423 FLUTICASONE PROPIONATE Inactive POLYTRIM 01793-6.1 UNIT/ML-% SOLN 1 gtt to affected eye q3h x 7 days POLYTRIM 27755-1.1 UNIT/ML-% SOLN 061632 POLYMYXIN B- TRIMETHOPRIM Inactive CHERATUSSIN AC 100-10 MG/5ML SYRP 1 tsp by mouth every 4 hours as needed for cough CHERATUSSIN AC 100-10 MG/5ML SYRP 616741 GUAIFENESIN-CODEINE Inactive LEVOTHYROXINE SODIUM 75 MCG TABS Take 1 tab daily LEVOTHYROXINE SODIUM 75 MCG TABS 931184 LEVOTHYROXINE SODIUM Inactive BACTRIM DS 800-160 MG TAB 1 tab by mouth twice daily BACTRIM DS 800-160 MG TAB 19820606 TRIMETHOPRIM-SULFAMETHOXAZOLE Inactive AZITHROMYCIN 250 MG TABS 2 po qd x 1 day, then 1 po qd x 4 days AZITHROMYCIN 250 MG TABS 8669596 AZITHROMYCIN Inactive CEFDINIR 300 MG CAPS by mouth twice a day CEFDINIR 300 MG CAPS 20020708 CEFDINIR Inactive AZITHROMYCIN 250 MG TABS 2 pills on day 1, then 1 pill daily x 4 days AZITHROMYCIN 250 MG TABS 2062958 AZITHROMYCIN Inactive DOXYCYCLINE HYCLATE 100 MG CAP 1 cap by mouth twice daily DOXYCYCLINE HYCLATE 100 MG CAP 2985251 DOXYCYCLINE HYCLATE Inactive FUROSEMIDE 20 MG TABS 1 pill by mouth daily, for edema FUROSEMIDE 20 MG TABS 753955 FUROSEMIDE Inactive AZITHROMYCIN 250 MG TABS 2 po qd x 1 day, then 1 po qd x 4 days AZITHROMYCIN 250 MG TABS 3514663 AZITHROMYCIN Inactive CEFTIN 500 MG TAB 1 twice a day CEFTIN 500 MG TAB 352247 CEFUROXIME AXETIL Inactive CEFDINIR 300 MG CAPS [...] for 2 days PREDNISONE 20 MG TAB 885088 PREDNISONE Inactive Immunizations Vaccine Administration Date Value Standard Description Seasonal influenza vaccine, injectable, containing preservative, for > 3 years old (Afluria, FluLaval, Fluzone, Fluvirin, Fluarix, Agriflu(>=18 yo)) Fluzone (>3 yrs.) [RRW317] Influenza, seasonal, injectable influenza immunization (Flu Vax) has been administered Influenza - Unspecified Formulation [CVX88] influenza virus vaccine, unspecified formulation pneumococcal immunization administered Pneumovax 23 [CVX33] pneumococcal polysaccharide vaccine, 23 valent Seasonal influenza vaccine, injectable, containing preservative, for > 3 years old (Afluria, FluLaval, Fluzone, Fluvirin, Fluarix, Agriflu(>=18 yo)) Fluzone (>3 yrs.) [CIM323] Influenza, seasonal, injectable dT (Diphtheria and Tetanus) booster given given Td(adult) unspecified formulation Boostrix (Tetanus toxoid, reduced diphtheria toxoid and acellular pertussis vaccine, adsorbed), booster Boostrix [VFD126] tetanus toxoid, reduced diphtheria toxoid, and acellular [...] Panel - Chemistry sodium, serum 142 mmol/L 761-195 7724/06/30 potassium, serum 4.4 mmol/L 3.5-5.2 chloride, serum [...] Rate - Chemistry sodium, serum 139 mmol/L 351-818 3455/03/24 carbon dioxide, venous blood 22.4 mmol/L 21.0-32.0 [...] ... - Chemistry sodium, serum 143 mmol/L 900-136 6774/05/02 carbon dioxide, venous blood 25.6 mmol/L 21.0-32.0 [...] PANEL - Chemistry cholesterol, serum 166 mg/dL 368-100 7626/12/06 triglyceride, serum, fasting 86 mg/dL 30-200 HDL [...] dipstick Negative Negative sodium, serum 142 mmol/L 146-892 9717/07/18 carbon dioxide, venous blood 27.8 mmol/L 21.0-32.0 [...] negative Encounters Code Encounter Date Provider Facility CPT-59764 Level 4 Est. Patient 19:55:18 LGO Og MD [facility] CPT-28751 Level 3 Est. Patient 20:13:34 [employer] ELEMENT COATER Jared Og MD [facility] CPT-03981 Level 4 Est. Patient 16:31:27 CDT Gab Padron MD [facility] CPT-17145 Level 2 Est. Patient 12:23:38 CDT Jared Og MD [facility] CPT-22216 Level 3 Est. Patient 11:01:51 CDT Gab Padron MD [facility] CPT-09599 Level 3 Est. Patient 15:27:02 CDT Jared Og MD [facility] CPT-07533 Level 4 Est. Patient 09:25:27 CDT Gab Padron MD [facility] CPT-55335 Level 3 Est. Patient 10:29:41 CDT Rodrigo Sarah [facility] CPT-39392 Level 4 Est. Patient 17:51:05 CDT Gab Padron MD [facility] CPT-74986 Level 3 Est. Patient 14:18:08 CDT Gab Padron MD [facility] CPT-24802 Level 4 Est. Patient 10:18:54 CDT Gab Padron MD [facility] CPT-41094 Level 3 Est. Patient 11:30:07 CDT Rodrigo Sarah [facility] CPT-39643 Level 4 Est. Patient 21:02:30 OPTICAL ELEMENT COATER Gab Padron MD [facility] CPT-52173 Level 3 Est. Patient 11:02:19 OPTICAL ELEMENT COATER Gab Padron MD [facility] CPT-32629 Level 4 Est. Patient 22:24:31 OPTICAL ELEMENT COATER Gab Padron MD [facility] CPT-17145 Level 3 Est. Patient 18:33:46 OPTICAL ELEMENT COATER Gab Padron MD [facility] CPT-59053 Level 3 Est. Patient 16:19:11 CDT Yolande Lindsay MD [facility] CPT-51139 Level 3 Est. Patient 18:59:14 CDT Yolande Lindsay MD [facility]-13582 Level 4 Est. Patient 21:29:26 CDT Yolande Lindsay MD [facility]-45117 Level 3 Est. Patient 07:37:45 CDT Yolande Lindsay MD [facility]-91129 Level 3 Est. Patient 17:03:46 CDT Yolande Lindsay MD [facility]-03098 Level 4 Est. Patient 20:02:13 OPTICAL ELEMENT COATER Yolande Lindsay MD [facility]-58543 Level 3 Est. Patient 16:02:07 OPTICAL ELEMENT COATER Alexis Ordaz MD [facility]-73194 Level 3 Est. Patient 12:41:24 OPTICAL ELEMENT COATER Yolande Lindsay MD [facility]-76101 Level 3 Est. Patient 15:41:20 OPTICAL ELEMENT COATER Yolande Lindsay MD [facility]-25396 Level 3 Est. Patient 13:20:02 OPTICAL ELEMENT COATER Yolande Lindsay MD [facility]-75255 Level 3 Est. Patient 15:00:38 CDT Jared Og MD [facility]-26629 Level 3 Est. Patient 10:22:32 CDT Yolande Lindsay MD [facility] CPT-17740 Level 3 Est. Patient 17:12:58 CDT Yolande Lindsay MD [facility]-47178 Level 4 Est. Patient 13:30:58 CDT Yolande Lindsay MD [facility] CPT-91994 Level 4 New Patient 09:02:42 CDT Jared Og MD [facility]-62964 Level 3 Est. Patient 08:19:07 CDT Yolande Lindsay MD [facility]-58453 Level 3 Est. Patient 12:00:13 OPTICAL ELEMENT COATER Gab Padron MD [facility]-41096 Level 3 Est. Patient 16:15:23 OPTICAL ELEMENT COATER Yolande Lindsay MD [facility]44485 Level 2 Est. Patient 19:47:15 CDT Yolande Lindsay MD [facility]-70992 Level 3 Est. Patient 21:38:31 CDT Yolande Lindsay MD [facility]76969 Level 3 Est. Patient 10:25:12 CDT Adiel PERAZA [facility]-04955 Level 4 Est. Patient 10:51:58 CDT Yolande Lindsay MD [facility]-07238 Level 3 Est. Patient 14:04:55 OPTICAL ELEMENT COATER Rodrigo Sarah [facility]-15163 Level 3 Est. Patient 10:46:35 OPTICAL ELEMENT COATER Rodrigo Sarah [facility]-90709 Level 3 Est. Patient 14:24:37 OPTICAL ELEMENT COATER Yolande Lindsay MD [facility]-34761 Level 3 Est. Patient 17:41:58 OPTICAL ELEMENT COATER Yolande Lindsay MD [facility]-53321 Level 2 Est. Patient 22:01:41 OPTICAL ELEMENT COATER Rodrigo Sarah [facility]-19639 Level 2 Est. Patient 22:01:11 OPTICAL ELEMENT COATER Rodrigo Sarah [facility]-85427 Level 3 Est. Patient 10:12:29 OPTICAL ELEMENT COATER Rodrigo Sarah [facility] [place] Level 3 Est. Patient 11:05:44 CDT Alexis Ordaz MD [facility] CPT-86508 Level 3 Est. Patient 14:57:20 CDT Yolande Lindsay MD [facility] CPT-67047 Level 3 Est. Patient 14:40:57 CDT Yolande Lidnsay MD [facility] CPT-43972 Level 3 Est. Patient 20:55:40 CDT Yolande Lindsay MD [facility] CPT-94671 Level 3 Est. Patient 12:42:38 OPTICAL ELEMENT COATER Yolande Lindsay MD [facility] CPT-58328 Level 3 Est. Patient 11:54:49 OPTICAL ELEMENT COATER Des Hines MD [facility] CPT-96703 Level 3 Est. Patient 17:06:[address] [facility] Procedures Code Procedure Name Date Entry Date Standard Description CPT-22540 Venipuncture Draw Fee 08:37:59 [employer]ICAL ELEMENT COATER CPT-14553 Liver Profile - LAB USE ONLY 08:37:59 [employer]ICAL ELEMENT COATER CPT-91189 Lipid - LAB USE ONLY 08:37:58 [employer]ICAL ELEMENT COATER CPT-57353 First Vx - Ix admin via ID IM or jet injects without counseling by physician 11:52:31 CDT CPT-36904 Fluzone Preservative Free Intramuscular Suspension 11:52 :31 CDT CPT-12750 Foot, left, comp min 3V - XRAY USE ONLY 09:24:54 CDT CPT-20415 Abd single AP View - XRAY USE ONLY 11:16:17 CDT CPT-01371 T spine AP/ Lat - XRAY USE ONLY 09:34:21 CDT CPT-51432 Chest 2V Frontal and Lat - XRAY USE ONLY 10:48:51 CDT CPT-48289 LS spine comp w obliq 13:28:00 [employer]ICAL ELEMENT COATER CPT-J1040 Depo Medrol 80 mg (Methyl Prednisolone Acetate) 10:51: 28 OPTICAL ELEMENT COATER CPT-J1100 Decadron 8mg (Dexamethasone) 10:51:28 OPTICAL ELEMENT COATER CPT-66466 Abx/Therapy Injection 10:51:28 OPTICAL ELEMENT COATER CPT-J1100 Decadron 8mg (Dexamethasone) 21:02:30 OPTICAL ELEMENT COATER CPT-J1040 Depo Medrol 80 mg (Methyl Prednisolone Acetate) 21:02: 30 OPTICAL ELEMENT COATER [id number] Event Monitor - MC Transmission 09:12:32 CDT 08/06 [id number] Event Monitor - MC review and interp 09:12:32 CDT [id number] Event Monitor - MC recording 09:12:32 CDT CPT-23023 EKG Trac and Interp 16:50:22 CDT CPT-J1030 Depo Medrol 40 mg (Methyl Prednisolone Acetate) 17:05: 54 CDT CPT-J1100 Decadron 4mg (Dexamethasone) 17:05:54 CDT CPT-55012 Abx/Therapy Injection 17:05:54 CDT CPT-J1100 Decadron 4mg (Dexamethasone) 16:55:28 CDT CPT-J1030 Depo Medrol 40 mg (Methyl Prednisolone Acetate) 16:55: 28 CDT CPT-75355 Ankle Complete - Min 3V 15:58:50 CDT CPT-48638 Knee 3V 15:58:50 CDT CPT-93048 Hip comp min 2V 15:58:50 CDT CPT-J2270 Morphine Sulfate 10 mg 14:25:44 OPTICAL ELEMENT COATER CPT-J2550 Phenergan 12.5 mg (Promethazine) 14:25:44 OPTICAL ELEMENT COATER CPT-13761 Abx/Therapy Injection 14:25:44 OPTICAL ELEMENT COATER CPT-J2550 Phenergan 12.5 mg (Promethazine) 14:08:03 OPTICAL ELEMENT COATER CPT-J2270 Morphine Sulfate 10 mg 14:08:03 OPTICAL ELEMENT COATER CPT-82084 Bladder Scan 15:00:38 CDT CPT-TCMM Transitional Care Mgmt-Moderate 09:52:22 CDT CPT-J1030 Depo Medrol 40 mg (Methyl Prednisolone Acetate) 10:55: 18 CDT CPT-J1100 Decadron 4mg (Dexamethasone) 10:55:18 CDT CPT-92539 Abx/Therapy Injection 10:55:18 CDT CPT-J1030 Depo Medrol 40 mg (Methyl Prednisolone Acetate) 10:22: 32 CDT CPT-J1100 Decadron 4mg (Dexamethasone) 10:22:32 CDT CPT-99707 Postop F/U Visit 14:37:13 CDT CPT-97269 Ankle Complete - Min 3V 17:11:58 CDT CPT-42102 Foot comp min 3V 17:11:58 CDT CPT-03930 Bladder Scan 09:56:58 CDT CPT-91224 Postop F/U Visit 09:56:58 CDT CPT-58777 Cystoscopy 09:02:42 CDT CPT-39694 Bladder Scan 09:02:42 CDT CPT-54297 Abd single AP View 16:00:35 CDT CPT-07809 Administration single or combination vaccine inc oral 10 :15:43 CDT CPT-11530 Influenza split virus > age 3 10:15:43 CDT CPT-84912 Nail Avulsion 09:24:57 CDT CPT-OV Office Visit 11:15:41 CDT CPT-59721 Abx/Therapy Injection 10:51:30 CDT CPT-J3301 Kenalog 40 mg (Triamcinolone Acetonide) 10:25:12 CDT CPT-J1100 Decadron 4mg (Dexamethasone) 10:25:12 CDT CPT-77090 Anoscopy diagnostic 10:36:12 CDT CPT-OV Office Visit 15:34:31 CDT CPT-36071 Abx/Therapy Injection 08:21:15 OPTICAL ELEMENT COATER CPT-J1885 Toradol 60 mg (Ketorolac) 10:46:35 OPTICAL ELEMENT COATER CPT-OV Office Visit 19:51:16 OPTICAL ELEMENT COATER CPT-03175 Spec Collection and Handling Fee 14:34:18 OPTICAL ELEMENT COATER CPT-PV Prev. Care Visit 14:19:18 OPTICAL ELEMENT COATER CPT-46702 Postop F/U Visit 14:47:51 OPTICAL ELEMENT COATER CPT-47213 Postop F/U Visit 15:15:14 OPTICAL ELEMENT COATER CPT-49941 Postop F/U Visit 14:41:43 CDT CPT-82352 Postop F/U Visit 15:47:46 CDT CPT-OV Office Visit 15:27:23 CDT CPT-OV Office Visit 17:20:34 CDT CPT-63940 Abx/Therapy Injection 15:05:57 CDT CPT-J1100 Decadron 8mg (Dexamethasone) 14:44:57 CDT CPT-J1040 Depo Medrol 80 mg (Methyl Prednisolone Acetate) 14:44: 57 CDT CPT-JTINJ Joint Injection 10:17:37 CDT CPT-80837 Administration 2+ single or combination vaccines inc oral 13:01:46 OPTICAL ELEMENT COATER CPT-55383 Administration single or combination vaccine inc oral 13 :01:46 OPTICAL ELEMENT COATER CPT-19004 Pneumovax 13:01:46 OPTICAL ELEMENT COATER CPT-21133 Influenza split virus > age 3 13:01:46 OPTICAL ELEMENT COATER CPT-41539 Administration single or combination vaccine inc oral 08 :56:49 CDT CPT-12579 Tdap 08:56:49 CDT
--- OUTSIDE RECORDS SUMMARY | 2017-03-22 01:39 | XMS REPORT | Clinical Summary ---
Author Author Admin, MARGRET Organization [facility] Address Unknown Phone Unavailable Allergies, Adverse Reactions, Alerts Allergy Name Reaction Description Start Date Severity Status Provider VALENTIN Critical Active Rodrigo Montemayorl ASSOCIATE PROFESSOR OF BIOSTATISTICS CHLORHEXIDINE GLUCONATE tongue and gums swollen Critical Active Hao Kabaford RMA NORFLEX Rash Critical Active Rowenaina Farshadzell ASSOCIATE PROFESSOR OF BIOSTATISTICS TRAZODONE HCL sees things Critical Active Dewayne [...] hx of 412 Active Hoa Otto [facility] Old myocardial infarction Pelvic pain 789.09 Active Yolande Lindsay MD PhD Abdominal pain, other specified site; multiple sites Edema 782.3 Active Yolande Lindsay MD PhD Edema Rash 782.1 Active Yolande Lindsay MD PhD Rash and other nonspecific skin eruption Back pain, lumbar 724.2 Active Gab Padron MD Lumbago Cough 786.2 Active Jillina Tyrel ASSOCIATE PROFESSOR OF BIOSTATISTICS Cough 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 Jillina Frazellilian ZAPATAN 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 Anemia 285.9 Active Gab Padron MD Anemia, unspecified Conjunctivitis 372.30 Active Jillnacho Sarah APRN Conjunctivitis, unspecified Sinusitis 473.9 Active Jillina Frazell ASSOCIATE PROFESSOR OF BIOSTATISTICS Unspecified sinusitis (chronic) Nonspecific syndrome suggestive of viral illness 079.99 Active Jillina Siml ASSOCIATE PROFESSOR OF BIOSTATISTICS Unspecified viral infection Laryngitis 464.00 Active Jillina Farshadzell ASSOCIATE PROFESSOR OF BIOSTATISTICS Acute laryngitis without mention of obstruction Abdominal [...] Abdominal pain, generalized 789.07 Active Silvestrellina Siml ASSOCIATE PROFESSOR OF BIOSTATISTICS Abdominal pain, generalized Back pain, thoracic region, left 724.1 Active Jillina Farshadzell ASSOCIATE PROFESSOR OF BIOSTATISTICS Pain in thoracic spine Abdominal pain, left [...] 1/2 tab daily for 2 days PREDNISONE 23431193665 No Longer Active Gab Padron MD Active ZOFRAN ODT 4 MG TBDP 1 po q6hr PRN Nausea ONDANSETRON 47314559912 Active Gab Padron MD Active IBUPROFEN 600 MG TAB 1 tablet by mouth every 6 hours for 7 days, then 1 tablet every 6 hours as needed. Take with food IBUPROFEN 95660339154 Active Rodrigo Sarah APRN Active BACTRIM DS 800-160 MG TAB 1 tab by mouth twice daily TRIMETHOPRIM-SULFAMETHOXAZOLE 82398168186 No Longer Active Gab Padron MD Active ADVAIR DISKUS 250-50 MCG/DOSE AEPB 1 puff BID FLUTICASONE- SALMETEROL 64919213878 Active Rodrigo Sarah APRN Active LEVOTHYROXINE SODIUM 75 MCG TABS Take 1 tab daily LEVOTHYROXINE SODIUM 33826284724 No Longer Active Mariana Cuadra RMA Active SYNTHROID 88 MCG ORAL TABS Take one by mouth daily LEVOTHYROXINE SODIUM 64178155439 Active Gab Padron MD Active CHERATUSSIN AC 100-10 MG/5ML SYRP 1 tsp by mouth every 4 hours as needed for cough GUAIFENESIN-CODEINE 19905574558 No Longer Active Gab Padron MD Active POLYTRIM 10246-1.1 UNIT/ML-% SOLN 1 gtt to affected eye q3h x 7 days POLYMYXIN B-TRIMETHOPRIM 78694845909 No Longer Active Gab Padron MD Active FLUTICASONE PROPIONATE 50 MCG/ACT SUSP 1 to 2 sprays each nostril daily 04/21 FLUTICASONE PROPIONATE 50199889137 No Longer Active Gab Padron MD Active TRILEPTAL 600 MG TABS Take one 1 tablet in Am and 1 tablet at night OXCARBAZEPINE 68458368645 Active Gab Padron MD Active CEFDINIR 300 MG CAPS 1 po BID x 10 days CEFDINIR 27010483946 No Longer Active Rodrigo Sarah APRN Active CEFTIN 500 MG TAB 1 twice a day CEFUROXIME AXETIL 64413160495 No Longer Active Gab Padron MD Active AZITHROMYCIN 250 MG TABS 2 po qd x 1 day, then 1 po qd x 4 days AZITHROMYCIN 88869812482 No Longer Active Rodrigo Sarah APRN Active CLARITIN 10 MG TAB 1 tablet by mouth daily as needed for allergies LORATADINE 09006829304 Active Rodrigo Sarah APRN Active OXYCODONE HCL 5 MG ORAL CAPS 1 TAB PO Q HS OXYCODONE HCL 13695894559 No Longer Active Rodrigo Sarah APRN Active NIASPAN 500 MG ORAL CR-TABS 1 pill nightly x 1 week, then 2 pills nightly x 1 week, then 3 pills nightly x 1 week, then 4 pills nightly NIACIN (ANTIHYPERLIPIDEMIC) 74923608161 No Longer Active Rodrigo Sarah APRN Active NIACIN 500 MG TABS 1 pill by mouth nightly x 1 week, then 2 pills x 1 week, then 3 pills x 1 week, then 4 pills nightly - take after evening meal, with applesauce or an apple NIACIN 53570201263 No Longer Active Yolande Lindsay MD PhD Active FISH OIL 1000 MG CAPS 3 pills daily OMEGA-3 FATTY ACIDS 79701121411 Active Yolande Lindsay MD PhD Active TRIAMCINOLONE ACETONIDE 0.1 % CREA apply bid sparingly to rash TRIAMCINOLONE ACETONIDE 58511616544 Active Yolande Lindsay MD PhD Active FUROSEMIDE 20 MG TAB 1 tablet by mouth daily FUROSEMIDE 11457552200 Active Tisha Lambert APRN Active LISINOPRIL 20 MG ORAL TABS 1 tab by mouth daily LISINOPRIL 89042166678 Active Tisha Lambert APRN Active FUROSEMIDE 20 MG TABS 1 pill by mouth daily, for edema FUROSEMIDE 74156638613 No Longer Active Yolande Lindsay MD PhD Active ATORVASTATIN CALCIUM 10 MG TABS 1 pill by mouth daily, for cholesterol 09/06 ATORVASTATIN CALCIUM 36921963183 Active Tisha Lambert APRN Active CALCIUM 600+D PLUS MINERALS 600-400 MG-UNIT ORAL CHEW 1 tab by mouth daily CALCIUM CARBONATE-VIT D-MIN 30458987260 No Longer Active Yolande Lindsay MD PhD Active CYCLOBENZAPRINE HCL 10 MG TABS 1 tablet by mouth three times daily as needed for muscle spasm/pain CYCLOBENZAPRINE HCL 35356389515 Active Yolande Lindsay MD PhD Active ONDANSETRON 4 MG TBDP 1 q4h PRN nausea ONDANSETRON 38154338033 Active Yolande Lindsay MD PhD Active ADULT ASPIRIN EC LOW STRENGTH 81 MG TBEC Take 1 tablet by mouth daily 2014 ASPIRIN 42271372745 No Longer Active Yolande Lindsay MD PhD Active ZOFRAN ODT 4 MG TBDP 1 pill dissolved by mouth every 4 hours if needed for nausea ONDANSETRON 61374848303 No Longer Active Yolande Lindsay MD PhD Active CEFTIN 500 MG TAB 1 twice a day CEFUROXIME AXETIL 19568680963 No Longer Active Yolande Lindsay MD PhD Active ALBUTEROL SULFATE 0.083 % NEBU SOLN one vial per nebulizer every 4-6 hours as needed ALBUTEROL SULFATE 58572120966 No Longer Active Alexis Ordaz MD Active DOXYCYCLINE HYCLATE 100 MG CAP 1 cap by mouth twice daily DOXYCYCLINE HYCLATE 53856020388 No Longer Active Yolande Lindsay MD PhD Active CYCLOBENZAPRINE HCL 10 MG TABS 1/2 - 1 tab by mouth three times daily if needed for spasms/pain CYCLOBENZAPRINE HCL 03754382056 No Longer Active Yolande Lindsay MD PhD Active AZITHROMYCIN 250 MG TABS 2 pills on day 1, then 1 pill daily x 4 days AZITHROMYCIN 37658232430 No Longer Active Yolande Lindsay MD PhD Active XOPENEX 1.25 MG/3ML NEBU 1 neb every 4 hours if needed for cough/congestion LEVALBUTEROL HCL 56549850751 No Longer Active Yolande Lindsay MD PhD Active DOXYCYCLINE HYCLATE 100 MG TAB 1 tab twice a day for 14 days 2013 DOXYCYCLINE HYCLATE 44437874736 No Longer Active Yolande Lindsay MD PhD Active PREVACID 30 MG CPDR Take 1 tablet by mouth daily-PRN LANSOPRAZOLE 45118235967 No Longer Active Yolande Lindsay MD PhD Active PA VITAMIN D-3 2000 UNIT CAPS 1 CAP PO DAILY CHOLECALCIFEROL 66920495740 No Longer Active Yolande Lindsay MD PhD Active CEFDINIR 300 MG CAPS by mouth twice a day CEFDINIR 28526128709 No Longer Active Gab Padron MD Active TOPAMAX 50 MG TABS 1 PO twice daily TOPIRAMATE 84720372480 Active Yolande Lindsay MD PhD Active AZITHROMYCIN 250 MG TABS 2 po qd x 1 day, then 1 po qd x 4 days AZITHROMYCIN 62525459497 No Longer Active Yolande Lindsay MD PhD Active DICLOFENAC SODIUM 75 MG TBEC 1 tablet by q 12 hours PRN headaches DICLOFENAC SODIUM 77963131564 No Longer Active Yolande Lindsay MD PhD Active FLONASE 50 MCG/ACT SUSP 1 spray each nostril am and hs FLUTICASONE PROPIONATE 04573568939 No Longer Active Todd Callaway MD Active ANUSOL-HC 25 MG SUPPOSITORY 1 rectally twice a day as needed for hemorrhoids HYDROCORTISONE JAYDEN (RECTAL) 80296683891 No Longer Active Yolande Lindsay MD PhD Active ANUSOL-HC 25 MG SUPPOSITORY 1 suppository rectally each evening as needed for anal fissure HYDROCORTISONE JAYDEN (RECTAL) 20165501525 No Longer Active LONNIE Iglesias Active VALIUM 5 MG TAB 1 po 30 minutes prior to your MRI DIAZEPAM 84651303063 No Longer Active LONNIE Iglesias Active METHOCARBAMOL 750 MG TABS 1 PO QID PRN METHOCARBAMOL 93710344683 No Longer Active Daphne Wetzel APRN Active NITROSTAT 0.4 MG SUBL as directed NITROGLYCERIN 61223415645 No Longer Active Jillina Frazellilian GAUTAM Active ROBAXIN-750 750 MG TABS 2 four times a day for 3 days as needed for muscle spasm, then 1 four times a day as needed METHOCARBAMOL 36649814775 No Longer Active Jillina Frazellilian ASSOCIATE PROFESSOR OF BIOSTATISTICS Active HYDROCODONE-ACETAMINOPHEN 5-325 MG TABS 1 q 4-6 hrs prn HYDROCODONE-ACETAMINOPHEN 50568905121 No Longer Active Jillina Frazellilian ZAPATAN Active VERAPAMIL HCL CR 180 MG CR-TABS TAKE 1 TAB DAILY VERAPAMIL HCL 80170628012 No Longer Active Yolande Lindsay MD PhD Active BACTRIM DS 800-160 MG TAB 1 tab by mouth twice daily TRIMETHOPRIM-SULFAMETHOXAZOLE 94535404996 No Longer Active Yolande Lindsay MD PhD Active NEXIUM 40 MG PACK 1 by mouth daily ESOMEPRAZOLE MAGNESIUM 37390875694 No Longer Active Des Hines MD Active EPIPEN 2-CHARLETTE 0.3 MG/0.3ML OMARI as need for allergic reaction EPINEPHRINE 55572974941 Active Yolande Lindsay MD PhD Active NEXIUM 40 MG CPDR 1 PO Q D DAY ESOMEPRAZOLE MAGNESIUM 15406856133 No Longer Active Sadia Perry RN Active NEXIUM 40 MG PACK 1 by mouth daily NEXIUM 40 MG PACK ESOMEPRAZOLE MAGNESIUM Inactive VERAPAMIL HCL CR 180 MG CR-TABS TAKE 1 TAB DAILY VERAPAMIL HCL CR 180 MG CR-TABS VERAPAMIL HCL Inactive HYDROCODONE-ACETAMINOPHEN 5-325 MG TABS 1 q 4-6 hrs prn HYDROCODONE-ACETAMINOPHEN 5-325 MG TABS 015219 HYDROCODONE-ACETAMINOPHEN Inactive ROBAXIN-750 750 MG TABS 2 four times a day for 3 days as needed for muscle spasm, then 1 four times a day as needed ROBAXIN-750 750 MG TABS 795977 METHOCARBAMOL Inactive NITROSTAT 0.4 MG SUBL as directed NITROSTAT 0.4 MG SUBL 657869 NITROGLYCERIN Inactive METHOCARBAMOL 750 MG TABS 1 PO QID PRN METHOCARBAMOL 750 MG TABS 094092 METHOCARBAMOL Inactive VALIUM 5 MG TAB 1 po 30 minutes prior to your MRI VALIUM 5 MG TAB 209161 DIAZEPAM Inactive ANUSOL-HC 25 MG SUPPOSITORY 1 suppository rectally each evening as needed for anal fissure ANUSOL-HC 25 MG SUPPOSITORY 6280822 HYDROCORTISONE JAYDEN (RECTAL) Inactive ANUSOL-HC 25 MG SUPPOSITORY 1 rectally twice a day as needed for hemorrhoids ANUSOL-HC 25 MG SUPPOSITORY 1300579 HYDROCORTISONE JAYDEN (RECTAL) Inactive FLONASE 50 MCG/ACT SUSP 1 spray each nostril am and hs FLONASE 50 MCG/ACT SUSP FLUTICASONE PROPIONATE Inactive DICLOFENAC SODIUM 75 MG TBEC 1 tablet by q 12 hours PRN headaches DICLOFENAC SODIUM 75 MG TBEC 517931 DICLOFENAC SODIUM Inactive PA VITAMIN D-3 2000 UNIT CAPS 1 CAP PO DAILY PA VITAMIN D-3 2000 UNIT CAPS CHOLECALCIFEROL Inactive PREVACID 30 MG CPDR Take 1 tablet by mouth daily-PRN PREVACID 30 MG CPDR 843163 LANSOPRAZOLE Inactive DOXYCYCLINE HYCLATE 100 MG TAB 1 tab twice a day for 14 days 2013 DOXYCYCLINE HYCLATE 100 MG TAB 3447357 DOXYCYCLINE HYCLATE Inactive XOPENEX 1.25 MG/3ML NEBU 1 neb every 4 hours if needed for cough/congestion XOPENEX 1.25 MG/3ML NEBU 538334 LEVALBUTEROL HCL Inactive CYCLOBENZAPRINE HCL 10 MG TABS 1/2 - 1 tab by mouth three times daily if needed for spasms/pain CYCLOBENZAPRINE HCL 10 MG TABS 028891 CYCLOBENZAPRINE HCL Inactive ALBUTEROL SULFATE 0.083 % NEBU SOLN one vial per nebulizer every 4-6 hours as needed ALBUTEROL SULFATE 0.083 % NEBU SOLN 101076 ALBUTEROL SULFATE Inactive CEFTIN 500 MG TAB 1 twice a day CEFTIN 500 MG TAB 728606 CEFUROXIME AXETIL Inactive ZOFRAN ODT 4 MG TBDP 1 pill dissolved by mouth every 4 hours if needed for nausea ZOFRAN ODT 4 MG TBDP 848661 ONDANSETRON Inactive ADULT ASPIRIN EC LOW STRENGTH 81 MG TBEC Take 1 tablet by mouth daily 2014 ADULT ASPIRIN EC LOW STRENGTH 81 MG TBEC 781289 ASPIRIN Inactive CALCIUM 600+D PLUS MINERALS 600-400 [...] or an apple NIACIN 500 MG TABS 049682 NIACIN Inactive NIASPAN 500 MG ORAL CR-TABS 1 pill nightly x 1 week, then 2 pills nightly x 1 week, then 3 pills nightly x 1 week, then 4 pills nightly NIASPAN 500 MG ORAL CR-TABS NIACIN (ANTIHYPERLIPIDEMIC) Inactive OXYCODONE HCL 5 MG ORAL CAPS 1 TAB PO Q HS OXYCODONE HCL 5 MG ORAL CAPS 9556680 OXYCODONE HCL Inactive FLUTICASONE PROPIONATE 50 MCG/ACT SUSP 1 to 2 sprays each nostril daily 04/21 FLUTICASONE PROPIONATE 50 MCG/ACT SUSP 0337845 FLUTICASONE PROPIONATE Inactive POLYTRIM 17846-4.1 UNIT/ML-% SOLN 1 gtt to affected eye q3h x 7 days POLYTRIM 38370-2.1 UNIT/ML-% SOLN 894667 POLYMYXIN B- TRIMETHOPRIM Inactive CHERATUSSIN AC 100-10 MG/5ML SYRP 1 tsp by mouth every 4 hours as needed for cough CHERATUSSIN AC 100-10 MG/5ML SYRP 638651 GUAIFENESIN-CODEINE Inactive LEVOTHYROXINE SODIUM 75 MCG TABS Take 1 tab daily LEVOTHYROXINE SODIUM 75 MCG TABS 292271 LEVOTHYROXINE SODIUM Inactive BACTRIM DS 800-160 MG TAB 1 tab by mouth twice daily BACTRIM DS 800-160 MG TAB 19820606 TRIMETHOPRIM-SULFAMETHOXAZOLE Inactive AZITHROMYCIN 250 MG TABS 2 po qd x 1 day, then 1 po qd x 4 days AZITHROMYCIN 250 MG TABS 4090313 AZITHROMYCIN Inactive CEFDINIR 300 MG CAPS by mouth twice a day CEFDINIR 300 MG CAPS 20020708 CEFDINIR Inactive AZITHROMYCIN 250 MG TABS 2 pills on day 1, then 1 pill daily x 4 days AZITHROMYCIN 250 MG TABS 6514246 AZITHROMYCIN Inactive DOXYCYCLINE HYCLATE 100 MG CAP 1 cap by mouth twice daily DOXYCYCLINE HYCLATE 100 MG CAP 8953206 DOXYCYCLINE HYCLATE Inactive FUROSEMIDE 20 MG TABS 1 pill by mouth daily, for edema FUROSEMIDE 20 MG TABS 517266 FUROSEMIDE Inactive AZITHROMYCIN 250 MG TABS 2 po qd x 1 day, then 1 po qd x 4 days AZITHROMYCIN 250 MG TABS 1953481 AZITHROMYCIN Inactive CEFTIN 500 MG TAB 1 twice a day CEFTIN 500 MG TAB 476110 CEFUROXIME AXETIL Inactive CEFDINIR 300 MG CAPS [...] for 2 days PREDNISONE 20 MG TAB 646785 PREDNISONE Inactive Immunizations Vaccine Administration Date Value Standard Description Seasonal influenza vaccine, injectable, containing preservative, for > 3 years old (Afluria, FluLaval, Fluzone, Fluvirin, Fluarix, Agriflu(>=18 yo)) Fluzone (>3 yrs.) [MZO226] Influenza, seasonal, injectable influenza immunization (Flu Vax) has been administered Influenza - Unspecified Formulation [CVX88] influenza virus vaccine, unspecified formulation Seasonal influenza vaccine, injectable, containing preservative, for > 3 years old (Afluria, FluLaval, Fluzone, Fluvirin, Fluarix, Agriflu(>=18 yo)) Fluzone (>3 yrs.) [BFV777] Influenza, seasonal, injectable pneumococcal immunization administered Pneumovax 23 [CVX33] pneumococcal polysaccharide vaccine, 23 valent dT (Diphtheria and Tetanus) booster given given Td(adult) unspecified formulation Boostrix (Tetanus toxoid, reduced diphtheria toxoid and acellular pertussis vaccine, adsorbed), booster Boostrix [QWV036] tetanus toxoid, reduced diphtheria toxoid, and acellular [...] Panel - Chemistry sodium, serum 142 mmol/L 012-431 6171/06/30 potassium, serum 4.4 mmol/L 3.5-5.2 chloride, serum [...] Rate - Chemistry sodium, serum 139 mmol/L 331-058 4220/03/24 carbon dioxide, venous blood 22.4 mmol/L [...] ... - Chemistry sodium, serum 143 mmol/L 319-664 4136/05/02 carbon dioxide, venous blood 25.6 mmol/L 21.0-32.0 [...] PANEL - Chemistry cholesterol, serum 166 mg/dL 824-410 9538/12/06 triglyceride, serum, fasting 86 mg/dL 30-200 HDL [...] dipstick Negative Negative sodium, serum 142 mmol/L 402-605 8423/07/18 carbon dioxide, venous blood 27.8 mmol/L 21.0-32.0 [...] negative Encounters Code Encounter Date Provider Facility CPT-42837 Level 4 Est. Patient 19:55:18 GLO Og MD [facility] CPT-14021 Level 3 Est. 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 Patient 16:31:27 CDT Gab Padron MD [facility] CPT-10894 Level 2 Est. Patient 12:23:38 CDT Jared Og MD [facility] CPT-72945 Level 3 Est. Patient 11:01:51 CDT Gab Padron MD [facility] CPT-66089 Level 3 Est. Patient 15:27:02 CDT Jared Og MD [facility] CPT-57366 Level 4 Est. Patient 09:25:27 CDT Gab Padron MD [facility] CPT-40687 Level 3 Est. Patient 10:29:41 CDT Rodrigo Sarah [facility] CPT-01892 Level 4 Est. Patient 17:51:05 CDT Gab Padron MD [facility] CPT-48782 Level 3 Est. Patient 14:18:08 CDT Gab Padron MD [facility] CPT-24601 Level 4 Est. Patient 10:18:54 CDT Gab Padron MD [facility] CPT-17820 Level 3 Est. Patient 11:30:07 CDT Rodrigo Sarah [facility] CPT-78422 Level 4 Est. Patient 21:02:30 INSPECTOR [employer] RECONDITIONING Gab Padron MD [facility] CPT-72352 Level 3 Est. 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 Patient 18:33:46 INSPECTOR [employer] RECONDITIONING Gab Padron MD [facility] CPT-73603 Level 3 Est. Patient 16:19:11 CDT Yolande Lindsay MD [facility]-23406 Level 3 Est. Patient 18:59:14 CDT Yolande Lindsay MD [facility]-28834 Level 4 Est. Patient 21:29:26 CDT Yolande Lindsay MD [facility]-62107 Level 3 Est. Patient 07:37:45 CDT Yolande Lindsay MD [facility]-82098 Level 3 Est. Patient 17:03:46 CDT Yolande Lindsay MD [facility]-38535 Level 4 Est. 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-30297 Level 3 Est. 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 Patient 15:41:20 INSPECTOR [employer] RECONDITIONING Yolande Lindsay MD [facility]-06143 Level 3 Est. 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 Patient 15:00:38 CDT Jared Og MD [facility]-48362 Level 3 Est. Patient 10:22:32 CDT Yolande Lindsay MD [facility]-81273 Level 3 Est. Patient 17:12:58 CDT Yolande Lindsay MD [facility]-05928 Level 4 Est. Patient 13:30:58 CDT Yolande Lindsay MD [facility]-92326 Level 4 New Patient 09:02:42 CDT Jared Og MD [facility]-07187 Level 3 Est. Patient 08:19:07 CDT Yolande Lindsay MD [facility]-38729 Level 3 Est. Patient 12:00:13 INSPECTOR [employer]ONDITIONING Gab Padron MD [facility]-61654 Level 3 Est. Patient 16:15:23 INSPECTOR [employer]DITIONING Yolande Lindsay MD [facility]-08591 Level 2 Est. Patient 19:47:15 CDT Yolande Lindsay MD [facility]-29571 Level 3 Est. Patient 21:38:31 CDT Yolande Lindsay MD [facility]-35091 Level 3 Est. Patient 10:25:12 CDT Adiel PERAZA [facility]-37786 Level 4 Est. Patient 10:51:58 CDT Yolande Lindsay MD [facility]-74866 Level 3 Est. 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 Patient 10:46:35 INSPECTOR [employer]ING Rodrigo Sarah [facility]-14717 Level 3 Est. Patient 14:24:37 INSPECTOR [employer]DITIONING Yolande Lindsay MD [facility]-93879 Level 3 Est. Patient 17:41:58 INSPECTOR [employer] RECONDITIONING Yolande Lindsay MD [facility]-44848 Level 2 Est. Patient 22:01:41 INSPECTOR [employer]ING Rodrigo Sarah [facility]-39163 Level 2 Est. Patient 22:01:11 INSPECTOR [employer]DITIONING Rodrigo Sarah [facility]-78261 Level 3 Est. Patient 10:12:29 INSPECTOR [employer]ING Rodrigo Sarah [facility]-65048 Level 3 Est. Patient 11:05:44 CDT Alexis Ordaz MD [facility] CPT-37526 Level 3 Est. Patient 14:57:20 CDT Yolande Lindsay MD [facility] CPT-39558 Level 3 Est. Patient 14:40:57 CDT Yolande Lindsay MD [facility] CPT-74884 Level 3 Est. Patient 20:55:40 CDT Yolande Lindsay MD [facility] CPT-35389 Level 3 Est. 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 Patient 11:54:49 INSPECTOR [employer]DITIONING Des Hines MD [facility] CPT-55983 Level 3 Est. Patient 17:06:38 CDT Dewayne PERAZA [facility] Procedures Code Procedure Name Date Entry Date Standard Description CPT-05107 Venipuncture Draw Fee 08:37:59 [employer] CPT-80828 Liver Profile - LAB USE ONLY 08:37:59 [employer] CPT-85576 Lipid - LAB USE ONLY 08:37:58 INS[employer] CPT-37108 First Vx - Ix admin via ID IM or jet injects without counseling by physician 11:52:31 CDT CPT-12926 Fluzone Preservative Free Intramuscular Suspension 11:52 :31 CDT CPT-66048 Foot, left, comp min 3V - XRAY USE ONLY 09:24:54 CDT CPT-26658 Abd single AP View - XRAY USE ONLY 11:16:17 CDT CPT-71409 T spine AP/ Lat - XRAY USE ONLY 09:34:21 CDT CPT-76014 Chest 2V Frontal and Lat - XRAY USE ONLY 10:48:51 CDT CPT-69828 LS spine comp w obliq 13:28:00 [employer] CPT-J1040 Depo Medrol 80 mg (Methyl Prednisolone Acetate) 10:51: 28 [employer] CPT-J1100 Decadron 8mg (Dexamethasone) 10:51:28 INS[employer] CPT-11181 Abx/Therapy Injection 10:51:28 INSPECTOR [employer] CPT-J1100 Decadron 8mg (Dexamethasone) 21:02:30 INSPECTOR [employer]DITIONING CPT-J1040 Depo Medrol 80 mg (Methyl Prednisolone Acetate) 21:02: 30 INS[employer] [id number] Event Monitor - MC Transmission 09:12:32 CDT 08/06 [id number] Event Monitor - MC review and interp 09:12:32 CDT [id number] Event Monitor - MC recording 09:12:32 CDT CPT-87152 EKG Trac and Interp 16:50:22 CDT CPT-J1030 Depo Medrol 40 mg (Methyl Prednisolone Acetate) 17:05: 54 CDT CPT-J1100 Decadron 4mg (Dexamethasone) 17:05:54 CDT CPT-91001 Abx/Therapy Injection 17:05:54 CDT CPT-J1100 Decadron 4mg (Dexamethasone) 16:55:28 CDT CPT-J1030 Depo Medrol 40 mg (Methyl Prednisolone Acetate) 16:55: 28 CDT CPT-12096 Ankle Complete - Min 3V 15:58:50 CDT CPT-29226 Knee 3V 15:58:50 CDT CPT-30811 Hip comp min 2V 15:58:50 CDT CPT-J2270 Morphine Sulfate 10 mg 14:25:44 [employer] CPT-J2550 Phenergan 12.5 mg (Promethazine) 14:25:44 INS[employer]OR [employer] CPT-72465 Abx/Therapy Injection 14:25:44 INSPECTOR [employer]ING CPT-J2550 Phenergan 12.5 mg (Promethazine) 14:08:03 INSPECTOR [employer]ING CPT-J2270 Morphine Sulfate 10 mg 14:08:03 INS[employer]OR [employer] CPT-39422 Bladder Scan 15:00:38 CDT CPT-TCMM Transitional Care Mgmt-Moderate 09:52:22 CDT CPT-J1030 Depo Medrol 40 mg (Methyl Prednisolone Acetate) 10:55: 18 CDT CPT-J1100 Decadron 4mg (Dexamethasone) 10:55:18 CDT CPT-28753 Abx/Therapy Injection 10:55:18 CDT CPT-J1030 Depo Medrol 40 mg (Methyl Prednisolone Acetate) 10:22: 32 CDT CPT-J1100 Decadron 4mg (Dexamethasone) 10:22:32 CDT CPT-05827 Postop F/U Visit 14:37:13 CDT CPT-26517 Ankle Complete - Min 3V 17:11:58 CDT CPT-22660 Foot comp min 3V 17:11:58 CDT CPT-35858 Bladder Scan 09:56:58 CDT CPT-88155 Postop F/U Visit 09:56:58 CDT CPT-14662 Cystoscopy 09:02:42 CDT CPT-02272 Bladder Scan 09:02:42 CDT CPT-13989 Abd single AP View 16:00:35 CDT CPT-52839 Administration single or combination vaccine inc oral 10 :15:43 CDT CPT-32001 Influenza split virus > age 3 10:15:43 CDT CPT-77182 Nail Avulsion 09:24:57 CDT CPT-OV Office Visit 11:15:41 CDT CPT-08022 Abx/Therapy Injection 10:51:30 CDT CPT-J3301 Kenalog 40 mg (Triamcinolone Acetonide) 10:25:12 CDT CPT-J1100 Decadron 4mg (Dexamethasone) 10:25:12 CDT CPT-05925 Anoscopy diagnostic 10:36:12 CDT CPT-OV Office Visit 15:34:31 CDT CPT-59054 Abx/Therapy Injection 08:21:15 [employer] CPT-J1885 Toradol 60 mg (Ketorolac) 10:46:35 [employer] CPT-OV Office Visit 19:51:16 [employer] CPT-77009 Spec Collection and Handling Fee 14:34:18 [employer] CPT-PV Prev. Care Visit 14:19:18 [employer] CPT-07465 Postop F/U Visit 14:47:51 [employer] CPT-66975 Postop F/U Visit 15:15:14 [employer] CPT-78654 Postop F/U Visit 14:41:43 CDT CPT-69963 Postop F/U Visit 15:47:46 CDT CPT-OV Office Visit 15:27:23 CDT CPT-OV Office Visit 17:20:34 CDT CPT-12700 Abx/Therapy Injection 15:05:57 CDT CPT-J1100 Decadron 8mg (Dexamethasone) 14:44:57 CDT CPT-J1040 Depo Medrol 80 mg (Methyl Prednisolone Acetate) 14:44: 57 CDT CPT-JTINJ Joint Injection 10:17:37 CDT CPT-92849 Administration 2+ single or combination vaccines inc oral 13:01:46 [employer] CPT-45712 Administration single or combination vaccine inc oral 13 :01:46 [employer] CPT-67331 Pneumovax 13:01:46 [employer] CPT-99916 Influenza split virus > age 3 13:01:46 [employer] CPT-63820 Administration single or combination vaccine inc oral 08 :56:49 CDT CPT-85824 Tdap 08:56:49 CDT
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
--- OUTSIDE RECORDS SUMMARY | 2017-03-22 01:43 | XMS REPORT | Clinical Summary ---
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 sees things Critical Active [...] infarction, hx of 412 Active Hoa Otto [facility] Old myocardial infarction FOOT PAIN, RIGHT ICD-729.5 [...] tab by mouth daily CALCIUM CARBONATE-VIT D-MIN 20630050009 Active Yolande Lindsay MD PhD Active ONDANSETRON 4 MG TBDP 1 q4h PRN nausea ONDANSETRON 72570502873 Active Yolande Lindsay MD PhD Active ADULT ASPIRIN EC LOW STRENGTH 81 MG TBEC Take 1 tablet by mouth daily 2014 ASPIRIN 46636300957 No Longer Active Yolande Lindsay MD PhD Active ZOFRAN ODT 4 MG TBDP 1 pill dissolved by mouth every 4 hours if needed for nausea ONDANSETRON 11849073790 No Longer Active Yolande Lindsay MD PhD Active CEFTIN 500 MG TAB 1 twice a day CEFUROXIME AXETIL 00591359721 No Longer Active Yolande Lindsay MD PhD Active ALBUTEROL SULFATE 0.083 % NEBU SOLN one vial per nebulizer every 4-6 hours as needed ALBUTEROL SULFATE 97896159475 No Longer Active Alexis Ordaz MD Active DOXYCYCLINE HYCLATE 100 MG CAP 1 cap by mouth twice daily DOXYCYCLINE HYCLATE 14186691787 No Longer Active Yolande Lindsay MD PhD Active CYCLOBENZAPRINE HCL 10 MG TABS 1/2 - 1 tab by mouth three times daily if needed for spasms/pain CYCLOBENZAPRINE HCL 01867766023 No Longer Active Yolande Lindsay MD PhD Active TRILEPTAL 600 MG TABS Take one 1/2 tablet in Am and 1 tablet at night OXCARBAZEPINE 20553860227 Active Yolande Lindsay MD PhD Active AZITHROMYCIN 250 MG TABS 2 pills on day 1, then 1 pill daily x 4 days AZITHROMYCIN 65312119263 No Longer Active Yolande Lindsay MD PhD Active XOPENEX 1.25 MG/3ML NEBU 1 neb every 4 hours if needed for cough/congestion LEVALBUTEROL HCL 23325888921 No Longer Active Yolande Lindsay MD PhD Active DOXYCYCLINE HYCLATE 100 MG TAB 1 tab twice a day for 14 days 2013 DOXYCYCLINE HYCLATE 19361199751 No Longer Active Yolande Lindsay MD PhD Active LEVOTHYROXINE SODIUM 75 MCG TABS Take 1 tab daily LEVOTHYROXINE SODIUM 74168914842 Active Yolande Lindsay MD PhD Active PREVACID 30 MG CPDR Take 1 tablet by mouth daily-PRN LANSOPRAZOLE 42972259534 No Longer Active Yolande Lindsay MD PhD Active PA VITAMIN D-3 2000 UNIT CAPS 1 CAP PO DAILY CHOLECALCIFEROL 84381407014 No Longer Active Yolande Lindsay MD PhD Active CEFDINIR 300 MG CAPS by mouth twice a day CEFDINIR 04021545452 No Longer Active Gab Padron MD Active TOPAMAX 50 MG TABS 1 PO twice daily TOPIRAMATE 75319275681 Active Yolande Lindsay MD PhD Active AZITHROMYCIN 250 MG TABS 2 po qd x 1 day, then 1 po qd x 4 days AZITHROMYCIN 75592697008 No Longer Active Yolande Lindsay MD PhD Active DICLOFENAC SODIUM 75 MG TBEC 1 tablet by q 12 hours PRN headaches DICLOFENAC SODIUM 14669180531 No Longer Active Yolande Lindsay MD PhD Active FLONASE 50 MCG/ACT SUSP 1 spray each nostril am and hs FLUTICASONE PROPIONATE 87488460035 No Longer Active Todd Callaway MD Active ANUSOL-HC 25 MG SUPPOSITORY 1 rectally twice a day as needed for hemorrhoids HYDROCORTISONE JAYDEN (RECTAL) 21978701569 No Longer Active Yolande Lindsay MD PhD Active ANUSOL-HC 25 MG SUPPOSITORY 1 suppository rectally each evening as needed for anal fissure HYDROCORTISONE JAYDEN (RECTAL) 73230571117 No Longer Active LONNIE Iglesias Active VALIUM 5 MG TAB 1 po 30 minutes prior to your MRI DIAZEPAM 40669652181 No Longer Active LONNIE Iglesias Active METHOCARBAMOL 750 MG TABS 1 PO QID PRN METHOCARBAMOL 17408375625 No Longer Active Daphne Wetzel APRN Active NITROSTAT 0.4 MG SUBL as directed NITROGLYCERIN 69212482699 No Longer Active Rodrigo Sarah APRN Active ROBAXIN-750 750 MG TABS 2 four times a day for 3 days as needed for muscle spasm, then 1 four times a day as needed METHOCARBAMOL 16337667605 No Longer Active Rodrigo Sarah APRN Active HYDROCODONE-ACETAMINOPHEN 5-325 MG TABS 1 q 4-6 hrs prn HYDROCODONE-ACETAMINOPHEN 27826312216 No Longer Active Rodrigo Sarah APRN Active VERAPAMIL HCL CR 180 MG CR-TABS TAKE 1 TAB DAILY VERAPAMIL HCL 76739138223 No Longer Active Yolande Lindsay MD PhD Active BACTRIM DS 800-160 MG TAB 1 tab by mouth twice daily TRIMETHOPRIM-SULFAMETHOXAZOLE 09444945175 No Longer Active Yolande Lindsay MD PhD Active NEXIUM 40 MG PACK 1 by mouth daily ESOMEPRAZOLE MAGNESIUM 83977888677 No Longer Active Des Hines MD Active EPIPEN 2-CHARLETTE 0.3 MG/0.3ML OMARI as need for allergic reaction EPINEPHRINE 60873199360 Active Yolande Lindsay MD PhD Active LISINOPRIL 10 MG TABS 1 PO Q D FOR BP LISINOPRIL 49075360975 Active Yolande Lindsay MD PhD Active NEXIUM 40 MG CPDR 1 PO Q D DAY ESOMEPRAZOLE MAGNESIUM 09598257927 No Longer Active Sadia Perry RN Active NEXIUM 40 MG PACK 1 by mouth daily NEXIUM 40 MG PACK ESOMEPRAZOLE MAGNESIUM Inactive VERAPAMIL HCL CR 180 MG CR-TABS TAKE 1 TAB DAILY VERAPAMIL HCL CR 180 MG CR-TABS VERAPAMIL HCL Inactive HYDROCODONE-ACETAMINOPHEN 5-325 MG TABS 1 q 4-6 hrs prn HYDROCODONE-ACETAMINOPHEN 5-325 MG TABS 186813 HYDROCODONE-ACETAMINOPHEN Inactive ROBAXIN-750 750 MG TABS 2 four times a day for 3 days as needed for muscle spasm, then 1 four times a day as needed ROBAXIN-750 750 MG TABS 262987 METHOCARBAMOL Inactive NITROSTAT 0.4 MG SUBL as directed NITROSTAT 0.4 MG SUBL NITROGLYCERIN Inactive METHOCARBAMOL 750 MG TABS 1 PO QID PRN METHOCARBAMOL 750 MG TABS 107799 METHOCARBAMOL Inactive VALIUM 5 MG TAB 1 po 30 minutes prior to your MRI VALIUM 5 MG TAB 857543 DIAZEPAM Inactive ANUSOL-HC 25 MG SUPPOSITORY 1 suppository rectally each evening as needed for anal fissure ANUSOL-HC 25 MG SUPPOSITORY 4489833 HYDROCORTISONE JAYDEN (RECTAL) Inactive ANUSOL-HC 25 MG SUPPOSITORY 1 rectally twice a day as needed for hemorrhoids ANUSOL-HC 25 MG SUPPOSITORY 4261839 HYDROCORTISONE JAYDEN (RECTAL) Inactive FLONASE 50 MCG/ACT SUSP 1 spray each nostril am and hs FLONASE 50 MCG/ACT SUSP 646743 FLUTICASONE PROPIONATE Inactive DICLOFENAC SODIUM 75 MG TBEC 1 tablet by q 12 hours PRN headaches DICLOFENAC SODIUM 75 MG TBEC 492078 DICLOFENAC SODIUM Inactive PA VITAMIN D-3 2000 UNIT CAPS 1 CAP PO DAILY PA VITAMIN D-3 2000 UNIT CAPS CHOLECALCIFEROL Inactive PREVACID 30 MG CPDR Take 1 tablet by mouth daily-PRN PREVACID 30 MG CPDR 119201 LANSOPRAZOLE Inactive DOXYCYCLINE HYCLATE 100 MG TAB 1 tab twice a day for 14 days 2013 DOXYCYCLINE HYCLATE 100 MG TAB 202975 DOXYCYCLINE HYCLATE Inactive XOPENEX 1.25 MG/3ML NEBU 1 neb every 4 hours if needed for cough/congestion XOPENEX 1.25 MG/3ML NEBU LEVALBUTEROL HCL Inactive CYCLOBENZAPRINE HCL 10 MG TABS 1/2 - 1 tab by mouth three times daily if needed for spasms/pain CYCLOBENZAPRINE HCL 10 MG TABS 070071 CYCLOBENZAPRINE HCL Inactive ALBUTEROL SULFATE 0.083 % NEBU SOLN one vial per nebulizer every 4-6 hours as needed ALBUTEROL SULFATE 0.083 % NEBU SOLN 904204 ALBUTEROL SULFATE Inactive CEFTIN 500 MG TAB 1 twice a day CEFTIN 500 MG TAB 513564 CEFUROXIME AXETIL Inactive ZOFRAN ODT 4 MG TBDP 1 pill dissolved by mouth every 4 hours if needed for nausea ZOFRAN ODT 4 MG TBDP 328845 ONDANSETRON Inactive ADULT ASPIRIN EC LOW STRENGTH 81 MG TBEC Take 1 tablet by mouth daily 2014 ADULT ASPIRIN EC LOW STRENGTH 81 MG TBEC 636554 ASPIRIN Inactive BACTRIM DS 800-160 MG TAB 1 tab by mouth twice daily BACTRIM DS 800-160 MG TAB TRIMETHOPRIM-SULFAMETHOXAZOLE Inactive AZITHROMYCIN 250 MG TABS 2 po qd x 1 day, then 1 po qd x 4 days AZITHROMYCIN 250 MG TABS 7079030 AZITHROMYCIN Inactive CEFDINIR 300 MG CAPS by mouth twice a day CEFDINIR 300 MG CAPS 910049 CEFDINIR Inactive AZITHROMYCIN 250 MG TABS 2 pills on day 1, then 1 pill daily x 4 days AZITHROMYCIN 250 MG TABS 1832018 AZITHROMYCIN Inactive DOXYCYCLINE HYCLATE 100 MG CAP 1 cap by mouth twice daily DOXYCYCLINE HYCLATE 100 MG CAP 19890510 DOXYCYCLINE HYCLATE Inactive Immunizations Vaccine Administration Date Value Standard Description Seasonal influenza vaccine, injectable, containing preservative, for > 3 years old (Afluria, FluLaval, Fluzone, Fluvirin, Fluarix, Agriflu(>=18 yo)) Fluzone (>3 yrs.) [[id number]] Influenza, seasonal, injectable influenza immunization (Flu Vax) has been administered Influenza - Unspecified Formulation [CVX88] influenza virus vaccine, unspecified formulation Seasonal influenza vaccine, injectable, containing preservative, for > 3 years old (Afluria, FluLaval, Fluzone, Fluvirin, Fluarix, Agriflu(>=18 yo)) Fluzone (>3 yrs.) [IJO822] Influenza, seasonal, injectable pneumococcal immunization administered Pneumovax 23 [CVX33] pneumococcal polysaccharide vaccine, 23 valent dT (Diphtheria and Tetanus) booster given given Td(adult) unspecified formulation Boostrix (Tetanus toxoid, reduced diphtheria toxoid and acellular pertussis vaccine, adsorbed), booster Boostrix [LGP389] tetanus toxoid, reduced diphtheria toxoid, and acellular [...] [facility] Advanced Lipid and Inlammation Panel /38394 - Chemistry cholesterol, serum 198 mg/dL [phone]/04/30 HDL cholesterol, serum 65 mg/dL > OR=46 triglyceride, serum, fasting 82 mg/dL LDL cholesterol, serum 117 mg/dL cholesterol/HDL ratio, serum 3.0 calc < OR=5.0 Lab Report: CBC W/DIFF, Basic Metabolic Panel - Chemistry sodium, serum 144 mmol/L 576-448 4812/01/21 potassium, serum 4.2 mmol/L 3.5-5.2 chloride, [...] Panel - Chemistry sodium, serum 144 mmol/L 527-624 6639/12/15 potassium, serum 5.4 mmol/L 3.5-5.2 chloride, serum [...] UA - Chemistry sodium, serum 143 mmol/L 258-043 5154/10/24 potassium, serum 3.9 mmol/L 3.5-5.2 chloride, serum [...] 51 mg/dL 30-200 cholesterol, serum 173 mg/dL 999-206 5478/04/28 HDL cholesterol, serum 63 mg/dL 32-96 LDL [...] 0-19 Encounters Code Encounter Date Provider Facility CPT-05535 Level 3 Est. Patient 07:37:45 CDT Yolande Lindsay MD PhD [facility] CPT-66687 Level 3 Est. Patient 17:03:46 CDT Yolande Lindsay MD PhD [facility] CPT-58391 Level 4 Est. Patient 20:02:13 [employer]IATE Yolande Lindsay MD PhD [facility] CPT-94754 Level 3 Est. Patient 16:02:07 [employer] SAL[employer]OCIATE Alexis Ordaz MD [facility] CPT-50239 Level 3 Est. Patient 12:41:24 [employer] SALES ASSOCIATE Yolande Lindsay MD PhD [facility] CPT-40943 Level 3 Est. Patient 15:41:20 TE[employer] SALES ASSOCIATE Yolande Lindsay MD [facility] CPT-35418 Level 3 Est. Patient 13:20:02 TE[employer] SALES ASSOCIATE Yolande Lindsay MD [facility]-89083 Level 3 Est. Patient 15:00:38 CDT Jared Og MD [facility] CPT-44569 Level 3 Est. Patient 10:22:32 CDT Yolande Lindsay MD [facility] CPT-57673 Level 3 Est. Patient 17:12:58 CDT Yolande Lindsay MD [facility]-18205 Level 4 Est. Patient 13:30:58 CDT Yolande Lindsay MD [facility] CPT-79724 Level 4 New Patient 09:02:42 CDT Jared Og MD [facility]-88837 Level 3 Est. Patient 08:19:07 CDT Yolande Lindsay MD [facility] CPT-34166 Level 3 Est. Patient 12:00:13 TE[employer] SALES ASSOCIATE Gab Padron MD [facility] CPT-22345 Level 3 Est. Patient 16:15:23 TE[employer] SALES ASSOCIATE Yolande Lindsay MD [facility] CPT-42457 Level 2 Est. Patient 19:47:15 CDT Yolande Lindsay MD [facility] CPT-61468 Level 3 Est. Patient 21:38:31 CDT Yolande Lindsay MD [facility] CPT-66609 Level 3 Est. Patient 10:25:12 CDT Adiel PERAZA [facility] CPT-53980 Level 4 Est. Patient 10:51:58 CDT Yolande Lindsay MD [facility] CPT-59062 Level 3 Est. Patient 14:04:55 [employer] SALES ASSOCIATE Rodrigo Sarah [facility] CPT-99666 Level 3 Est. Patient 10:46:35 [employer] SALES ASSOCIATE Rodrigo Sarah [facility] CPT-94448 Level 3 Est. Patient 14:24:37 [employer] SALES ASSOCIATE Yolande Lindsay MD [facility] CPT-19678 Level 3 Est. Patient 17:41:58 [employer] SALES ASSOCIATE Yolande Lindsay MD [facility] CPT-38315 Level 2 Est. Patient 22:01:41 [employer] SALES ASSOCIATE Rodrigo Sarah [facility] CPT-55928 Level 2 Est. Patient 22:01:11 TE[employer] SALES ASSOCIATE Rodrigo Sarah [facility] CPT-51917 Level 3 Est. Patient 10:12:29 [employer] SALES ASSOCIATE Rodrigo Sarah [facility] CPT-23855 Level 3 Est. Patient 11:05:44 CDT Alexis Ordaz MD [facility] CPT-89036 Level 3 Est. Patient 14:57:20 CDT Yolande Lindsay MD [facility] CPT-90151 Level 3 Est. Patient 14:40:57 CDT Yolande Lindsay MD [facility] CPT-85462 Level 3 Est. Patient 20:55:40 CDT Yolande Lindsay MD [facility] CPT-52036 Level 3 Est. Patient 12:42:38 TE[employer] SALES ASSOCIATE Yolande Lindsay MD [facility]-16820 Level 3 Est. Patient 11:54:49 TE[employer] SALES ASSOCIATE Des Hines MD [facility] CPT-14311 Level 3 Est. Patient 17:06:38 CDT Dewayne PERAZA [facility] Procedures Code Procedure Name Date Entry Date Standard Description [id number] Event Monitor - MC Transmission 09:12:32 CDT 08/06 [id number] Event Monitor - MC review and interp 09:12:32 CDT [id number] Event Monitor - MC recording 09:12:32 CDT CPT-20343 EKG Trac and Interp 16:50:22 CDT CPT-J1030 Depo Medrol 40 mg (Methyl Prednisolone Acetate) 17:05: 54 CDT CPT-J1100 Decadron 4mg (Dexamethasone) 17:05:54 CDT CPT-14094 Abx/Therapy Injection 17:05:54 CDT CPT-J1100 Decadron 4mg (Dexamethasone) 16:55:28 CDT CPT-J1030 Depo Medrol 40 mg (Methyl Prednisolone Acetate) 16:55: 28 CDT CPT-57389 Ankle Complete - Min 3V 15:58:50 CDT CPT-30305 Knee 3V 15:58:50 CDT CPT-13217 Hip comp min 2V 15:58:50 CDT CPT-J2270 Morphine Sulfate 10 mg 14:25:44 [employer]ATE CPT-J2550 Phenergan 12.5 mg (Promethazine) 14:25:44 [employer]IATE CPT-63646 Abx/Therapy Injection 14:25:44 [employer]OCIATE CPT-J2550 Phenergan 12.5 mg (Promethazine) 14:08:03 [employer]OCIATE CPT-J2270 Morphine Sulfate 10 mg 14:08:03 [employer]OCIATE CPT-92906 Bladder Scan 15:00:38 CDT CPT-TCMM Transitional Care Mgmt-Moderate 09:52:22 CDT CPT-J1030 Depo Medrol 40 mg (Methyl Prednisolone Acetate) 10:55: 18 CDT CPT-J1100 Decadron 4mg (Dexamethasone) 10:55:18 CDT CPT-99872 Abx/Therapy Injection 10:55:18 CDT CPT-J1030 Depo Medrol 40 mg (Methyl Prednisolone Acetate) 10:22: 32 CDT CPT-J1100 Decadron 4mg (Dexamethasone) 10:22:32 CDT CPT-32868 Postop F/U Visit 14:37:13 CDT CPT-68236 Ankle Complete - Min 3V 17:11:58 CDT CPT-11590 Foot comp min 3V 17:11:58 CDT CPT-05286 Bladder Scan 09:56:58 CDT CPT-58280 Postop F/U Visit 09:56:58 CDT CPT-55640 Cystoscopy 09:02:42 CDT CPT-60919 Bladder Scan 09:02:42 CDT CPT-37644 Abd single AP View 16:00:35 CDT CPT-39388 Administration single or combination vaccine inc oral 10 :15:43 CDT CPT-78065 Influenza split virus > age 3 10:15:43 CDT CPT-39938 Nail Avulsion 09:24:57 CDT CPT-OV Office Visit 11:15:41 CDT CPT-04493 Abx/Therapy Injection 10:51:30 CDT CPT-J3301 Kenalog 40 mg (Triamcinolone Acetonide) 10:25:12 CDT CPT-J1100 Decadron 4mg (Dexamethasone) 10:25:12 CDT CPT-31711 Anoscopy diagnostic 10:36:12 CDT CPT-OV Office Visit 15:34:31 CDT CPT-65606 Abx/Therapy Injection 08:21:15 [employer]OCIATE CPT-J1885 Toradol 60 mg (Ketorolac) 10:46:35 [employer]IATE CPT-OV Office Visit 19:51:16 [employer]IATE CPT-05196 Spec Collection and Handling Fee 14:34:18 [employer]OCIATE CPT-PV Prev. Care Visit 14:19:18 [employer]IATE CPT-00569 Postop F/U Visit 14:47:51 [employer]IATE CPT-82451 Postop F/U Visit 15:15:14 [employer]IATE CPT-79682 Postop F/U Visit 14:41:43 CDT CPT-53047 Postop F/U Visit 15:47:46 CDT CPT-OV Office Visit 15:27:23 CDT CPT-OV Office Visit 17:20:34 CDT CPT-77769 Abx/Therapy Injection 15:05:57 CDT CPT-J1100 Decadron 8mg (Dexamethasone) 14:44:57 CDT CPT-J1040 Depo Medrol 80 mg (Methyl Prednisolone Acetate) 14:44: 57 CDT CPT-JTINJ Joint Injection 10:17:37 CDT CPT-70309 Administration 2+ single or combination vaccines inc oral 13:01:46 [employer]ATE CPT-82619 Administration single or combination vaccine inc oral 13 :01:46 [employer]ATE CPT-94083 Pneumovax 13:01:46 [employer]IATE CPT-77244 Influenza split virus > age 3 13:01:46 [employer]ATE CPT-49864 Administration single or combination vaccine inc oral 08 :56:49 CDT CPT-64525 Tdap 08:56:49 CDT
--- OUTSIDE RECORDS SUMMARY | 2017-03-22 01:45 | XMS REPORT | Clinical Summary ---
Author Author Admin, MARGRET Rhoades [facility] Address Unknown Phone Unavailable Allergies, Adverse Reactions, Alerts Allergy Name Reaction Description Start Date Severity Status Provider CHLORHEXIDINE GLUCONATE tongue and gums swollen Critical Active Hoa Otto RMA NORFLEX Rash Critical Active Rodrigo Sarah [facility] RECORDS CUSTODIAN TRAZODONE HCL sees things Critical Active Dewayne [...] left lower quadrant HEMATOCHEZIA 578.1 Resolved Yolande Lnidsay MD PhD Blood in stool HEMORRHOIDS, INTERNAL, [...] tab by mouth daily CALCIUM CARBONATE-VIT D-MIN 86307636143 Active Yolande Lindsay MD PhD Active ONDANSETRON 4 MG TBDP 1 q4h PRN nausea ONDANSETRON 75193115435 Active Yolande Lindsay MD PhD Active ADULT ASPIRIN EC LOW STRENGTH 81 MG TBEC Take 1 tablet by mouth daily 2014 ASPIRIN 97232440378 No Longer Active Yolande Lindsay MD PhD Active ZOFRAN ODT 4 MG TBDP 1 pill dissolved by mouth every 4 hours if needed for nausea ONDANSETRON 72224524607 No Longer Active Yolande Lindsay MD PhD Active CEFTIN 500 MG TAB 1 twice a day CEFUROXIME AXETIL 98583272204 No Longer Active Yolande Lindsay MD PhD Active ALBUTEROL SULFATE 0.083 % NEBU SOLN one vial per nebulizer every 4-6 hours as needed ALBUTEROL SULFATE 18353864732 No Longer Active Alexis Ordaz MD Active DOXYCYCLINE HYCLATE 100 MG CAP 1 cap by mouth twice daily DOXYCYCLINE HYCLATE 27737604515 No Longer Active Yolande Lindsay MD PhD Active CYCLOBENZAPRINE HCL 10 MG TABS 1/2 - 1 tab by mouth three times daily if needed for spasms/pain CYCLOBENZAPRINE HCL 20147969374 No Longer Active Yolande Lindsay MD PhD Active TRILEPTAL 600 MG TABS Take one 1/2 tablet in Am and 1 tablet at night OXCARBAZEPINE 97676737718 Active Yolande Lindsay MD PhD Active AZITHROMYCIN 250 MG TABS 2 pills on day 1, then 1 pill daily x 4 days AZITHROMYCIN 73430724614 No Longer Active Yolande Lindsay MD PhD Active XOPENEX 1.25 MG/3ML NEBU 1 neb every 4 hours if needed for cough/congestion LEVALBUTEROL HCL 03271848765 No Longer Active Yolande Lindsay MD PhD Active DOXYCYCLINE HYCLATE 100 MG TAB 1 tab twice a day for 14 days 2013 DOXYCYCLINE HYCLATE 51006801838 No Longer Active Yolande Lindsay MD PhD Active LEVOTHYROXINE SODIUM 75 MCG TABS Take 1 tab daily LEVOTHYROXINE SODIUM 70993951763 Active Yolande Lindsay MD PhD Active PREVACID 30 MG CPDR Take 1 tablet by mouth daily-PRN LANSOPRAZOLE 62903305411 No Longer Active Yolande Lindsay MD PhD Active PA VITAMIN D-3 2000 UNIT CAPS 1 CAP PO DAILY CHOLECALCIFEROL 68096224261 No Longer Active Yolande Lindsay MD PhD Active CEFDINIR 300 MG CAPS by mouth twice a day CEFDINIR 53886213921 No Longer Active Gab Padron MD Active TOPAMAX 50 MG TABS 1 PO twice daily TOPIRAMATE 92118481122 Active Yolande Lindsay MD PhD Active AZITHROMYCIN 250 MG TABS 2 po qd x 1 day, then 1 po qd x 4 days AZITHROMYCIN 42598978901 No Longer Active Yolande Lindsay MD PhD Active DICLOFENAC SODIUM 75 MG TBEC 1 tablet by q 12 hours PRN headaches DICLOFENAC SODIUM 60670047947 No Longer Active Yolande iLndsay MD PhD Active FLONASE 50 MCG/ACT SUSP 1 spray each nostril am and hs FLUTICASONE PROPIONATE 53191358562 No Longer Active Todd Callaway MD Active ANUSOL-HC 25 MG SUPPOSITORY 1 rectally twice a day as needed for hemorrhoids HYDROCORTISONE JAYDEN (RECTAL) 07681900947 No Longer Active Yolande Lindsay MD PhD Active ANUSOL-HC 25 MG SUPPOSITORY 1 suppository rectally each evening as needed for anal fissure HYDROCORTISONE JAYDEN (RECTAL) 87633199413 No Longer Active LONNIE Iglesias Active VALIUM 5 MG TAB 1 po 30 minutes prior to your MRI DIAZEPAM 08229171417 No Longer Active LONNIE Iglesias Active METHOCARBAMOL 750 MG TABS 1 PO QID PRN METHOCARBAMOL 47937286101 No Longer Active Daphne Wetzel APRN Active NITROSTAT 0.4 MG SUBL as directed NITROGLYCERIN 47121680969 No Longer Active Rodrigo Sarah APRN Active ROBAXIN-750 750 MG TABS 2 four times a day for 3 days as needed for muscle spasm, then 1 four times a day as needed METHOCARBAMOL 76425152255 No Longer Active Rodrigo Sarah APRN Active HYDROCODONE-ACETAMINOPHEN 5-325 MG TABS 1 q 4-6 hrs prn HYDROCODONE-ACETAMINOPHEN 45520214492 No Longer Active Rodrigo Sarah APRN Active VERAPAMIL HCL CR 180 MG CR-TABS TAKE 1 TAB DAILY VERAPAMIL HCL 06198330530 No Longer Active Yolande Lindsay MD PhD Active BACTRIM DS 800-160 MG TAB 1 tab by mouth twice daily TRIMETHOPRIM-SULFAMETHOXAZOLE 65295875584 No Longer Active Yolande Lindsay MD PhD Active NEXIUM 40 MG PACK 1 by mouth daily ESOMEPRAZOLE MAGNESIUM 65204042114 No Longer Active Des Hines MD Active EPIPEN 2-CHARLETTE 0.3 MG/0.3ML OMARI as need for allergic reaction EPINEPHRINE 53118735670 Active Yolande Lindsay MD PhD Active LISINOPRIL 10 MG TABS 1 PO Q D FOR BP LISINOPRIL 65999202439 Active Yolande Lindsay MD PhD Active NEXIUM 40 MG CPDR 1 PO Q D DAY ESOMEPRAZOLE MAGNESIUM 62680633215 No Longer Active Sadia Perry MIGUEL Active NEXIUM 40 MG PACK 1 by mouth daily NEXIUM 40 MG PACK ESOMEPRAZOLE MAGNESIUM Inactive VERAPAMIL HCL CR 180 MG CR-TABS TAKE 1 TAB DAILY VERAPAMIL HCL CR 180 MG CR-TABS VERAPAMIL HCL Inactive HYDROCODONE-ACETAMINOPHEN 5-325 MG TABS 1 q 4-6 hrs prn HYDROCODONE-ACETAMINOPHEN 5-325 MG TABS 836009 HYDROCODONE-ACETAMINOPHEN Inactive ROBAXIN-750 750 MG TABS 2 four times a day for 3 days as needed for muscle spasm, then 1 four times a day as needed ROBAXIN-750 750 MG TABS 800840 METHOCARBAMOL Inactive NITROSTAT 0.4 MG SUBL as directed NITROSTAT 0.4 MG SUBL NITROGLYCERIN Inactive METHOCARBAMOL 750 MG TABS 1 PO QID PRN METHOCARBAMOL 750 MG TABS 706329 METHOCARBAMOL Inactive VALIUM 5 MG TAB 1 po 30 minutes prior to your MRI VALIUM 5 MG TAB 342980 DIAZEPAM Inactive ANUSOL-HC 25 MG SUPPOSITORY 1 suppository rectally each evening as needed for anal fissure ANUSOL-HC 25 MG SUPPOSITORY 7035729 HYDROCORTISONE JAYDEN (RECTAL) Inactive ANUSOL-HC 25 MG SUPPOSITORY 1 rectally twice a day as needed for hemorrhoids ANUSOL-HC 25 MG SUPPOSITORY 3602031 HYDROCORTISONE JAYDEN (RECTAL) Inactive FLONASE 50 MCG/ACT SUSP 1 spray each nostril am and hs FLONASE 50 MCG/ACT SUSP 435623 FLUTICASONE PROPIONATE Inactive DICLOFENAC SODIUM 75 MG TBEC 1 tablet by q 12 hours PRN headaches DICLOFENAC SODIUM 75 MG TBEC 373583 DICLOFENAC SODIUM Inactive PA VITAMIN D-3 2000 UNIT CAPS 1 CAP PO DAILY PA VITAMIN D-3 2000 UNIT CAPS CHOLECALCIFEROL Inactive PREVACID 30 MG CPDR Take 1 tablet by mouth daily-PRN PREVACID 30 MG CPDR 380468 LANSOPRAZOLE Inactive DOXYCYCLINE HYCLATE 100 MG TAB 1 tab twice a day for 14 days 2013 DOXYCYCLINE HYCLATE 100 MG TAB 089913 DOXYCYCLINE HYCLATE Inactive XOPENEX 1.25 MG/3ML NEBU 1 neb every 4 hours if needed for cough/congestion XOPENEX 1.25 MG/3ML NEBU LEVALBUTEROL HCL Inactive CYCLOBENZAPRINE HCL 10 MG TABS 1/2 - 1 tab by mouth three times daily if needed for spasms/pain CYCLOBENZAPRINE HCL 10 MG TABS 836841 CYCLOBENZAPRINE HCL Inactive ALBUTEROL SULFATE 0.083 % NEBU SOLN one vial per nebulizer every 4-6 hours as needed ALBUTEROL SULFATE 0.083 % NEBU SOLN 669359 ALBUTEROL SULFATE Inactive CEFTIN 500 MG TAB 1 twice a day CEFTIN 500 MG TAB 179651 CEFUROXIME AXETIL Inactive ZOFRAN ODT 4 MG TBDP 1 pill dissolved by mouth every 4 hours if needed for nausea ZOFRAN ODT 4 MG TBDP 145370 ONDANSETRON Inactive ADULT ASPIRIN EC LOW STRENGTH 81 MG TBEC Take 1 tablet by mouth daily 2014 ADULT ASPIRIN EC LOW STRENGTH 81 MG TBEC 112298 ASPIRIN Inactive BACTRIM DS 800-160 MG TAB 1 tab by mouth twice daily BACTRIM DS 800-160 MG TAB TRIMETHOPRIM-SULFAMETHOXAZOLE Inactive AZITHROMYCIN 250 MG TABS 2 po qd x 1 day, then 1 po qd x 4 days AZITHROMYCIN 250 MG TABS 0281390 AZITHROMYCIN Inactive CEFDINIR 300 MG CAPS by mouth twice a day CEFDINIR 300 MG CAPS 224458 CEFDINIR Inactive AZITHROMYCIN 250 MG TABS 2 pills on day 1, then 1 pill daily x 4 days AZITHROMYCIN 250 MG TABS 1131124 AZITHROMYCIN Inactive DOXYCYCLINE HYCLATE 100 MG CAP 1 cap by mouth twice daily DOXYCYCLINE HYCLATE 100 MG CAP 19890510 DOXYCYCLINE HYCLATE Inactive Immunizations Vaccine Administration Date Value Standard Description Seasonal influenza vaccine, injectable, containing preservative, for > 3 years old (Afluria, FluLaval, Fluzone, Fluvirin, Fluarix, Agriflu(>=18 yo)) Fluzone (>3 yrs.) [VIM680] Influenza, seasonal, injectable influenza immunization (Flu Vax) has been administered Influenza - Unspecified Formulation [CVX88] influenza virus vaccine, unspecified formulation Seasonal influenza vaccine, injectable, containing preservative, for > 3 years old (Afluria, FluLaval, Fluzone, Fluvirin, Fluarix, Agriflu(>=18 yo)) Fluzone (>3 yrs.) [OWV587] Influenza, seasonal, injectable pneumococcal immunization administered Pneumovax 23 [CVX33] pneumococcal polysaccharide vaccine, 23 valent dT (Diphtheria and Tetanus) booster given given Td(adult) unspecified formulation Boostrix (Tetanus toxoid, reduced diphtheria toxoid and acellular pertussis vaccine, adsorbed), booster Boostrix [CVY422] tetanus toxoid, reduced diphtheria toxoid, and acellular [...] Panel - Chemistry sodium, serum 144 mmol/L 343-017 8553/01/21 potassium, serum 4.2 mmol/L 3.5-5.2 chloride, serum [...] Panel - Chemistry sodium, serum 144 mmol/L [phone]/12/15 potassium, serum 5.4 mmol/L 3.5-5.2 chloride, serum [...] dipstick Negative Negative sodium, serum 143 mmol/L 922-193 2053/10/24 potassium, serum 3.9 mmol/L 3.5-5.2 chloride, serum [...] 51 mg/dL 30-200 cholesterol, serum 173 mg/dL 253-243 9987/04/28 HDL cholesterol, serum 63 mg/dL 32-96 LDL [...] 1.010 Encounters Code Encounter Date Provider Facility CPT-66031 Level 3 Est. Patient 17:03:46 CDT Yolande Lindsay MD PhD [facility] CPT-28224 Level 4 Est. Patient 20:02:13 TUBER OPERATOR Yolande Lindsay MD [facility] CPT-29013 Level 3 Est. Patient 16:02:07 TUBER OPERATOR Alexis Ordaz MD [facility] CPT-63974 Level 3 Est. Patient 12:41:24 TUBER OPERATOR Yolande Lindsay MD [facility]-69824 Level 3 Est. Patient 15:41:20 TUBER OPERATOR Yolande Lindsay MD [facility]-16657 Level 3 Est. Patient 13:20:02 TUBER OPERATOR Yolande Lindsay MD [facility] CPT-25040 Level 3 Est. Patient 15:00:38 CDT Jared Og MD [facility]-61499 Level 3 Est. Patient 10:22:32 CDT oYlande Lindsay MD [facility]-84960 Level 3 Est. Patient 17:12:58 CDT Yolande Lindsay MD [facility] CPT-14591 Level 4 Est. Patient 13:30:58 CDT Yolande Lindsay MD [facility] CPT-26544 Level 4 New Patient 09:02:42 CDT Jared Og MD [facility]-45769 Level 3 Est. Patient 08:19:07 CDT Yolande Lindsay MD [facility] CPT-40678 Level 3 Est. Patient 12:00:13 TUBER OPERATOR Gab Padron MD [facility] CPT-74407 Level 3 Est. Patient 16:15:23 TUBER OPERATOR Yolande Lindsay MD [facility] CPT-04124 Level 2 Est. Patient 19:47:15 CDT Yolande Lindsay MD [facility]-80867 Level 3 Est. Patient 21:38:31 CDT Yolande Lindsay MD [facility]-20014 Level 3 Est. Patient 10:25:[address] [facility] CPT-43004 Level 4 Est. Patient 10:51:58 CDT Yolande Lindsay MD [facility]-67716 Level 3 Est. Patient 14:04:55 TUBER OPERATOR Rodrigo Sarah [facility]-33228 Level 3 Est. Patient 10:46:35 TUBER OPERATOR Rodrigo Sarah [facility]-34681 Level 3 Est. Patient 14:24:37 TUBER OPERATOR Yolande Lindsay MD [facility]-98797 Level 3 Est. Patient 17:41:58 TUBER OPERATOR Yolande Lindsay MD [facility]-39745 Level 2 Est. Patient 22:01:41 TUBER OPERATOR Rodrigo Sarah [facility]-85225 Level 2 Est. Patient 22:01:11 TUBER OPERATOR Rodrigo Sarah [facility] CPT-19354 Level 3 Est. Patient 10:12:29 TUBER OPERATOR Rodrigo Sarah [facility]-73635 Level 3 Est. Patient 11:05:44 CDT Alexis Ordaz MD [facility]-29175 Level 3 Est. Patient 14:57:20 CDT Yolande Lindsay MD [facility]-72083 Level 3 Est. Patient 14:40:57 CDT Yolande Lindsay MD [facility]-40695 Level 3 Est. Patient 20:55:40 CDT Yolande Lindsay MD [facility]-69621 Level 3 Est. Patient 12:42:38 TUBER OPERATOR Yolande Lindsay MD [facility]-62750 Level 3 Est. Patient 11:54:49 TUBER OPERATOR Des Hines MD [facility] CPT-77033 Level 3 Est. Patient 17:06:[address] [facility] Procedures Code Procedure Name Date Entry Date Standard Description CPT-60280 EKG Trac and Interp 16:50:22 CDT CPT-J1030 Depo Medrol 40 mg (Methyl Prednisolone Acetate) 17:05: 54 CDT CPT-J1100 Decadron 4mg (Dexamethasone) 17:05:54 CDT CPT-63262 Abx/Therapy Injection 17:05:54 CDT CPT-J1100 Decadron 4mg (Dexamethasone) 16:55:28 CDT CPT-J1030 Depo Medrol 40 mg (Methyl Prednisolone Acetate) 16:55: 28 CDT CPT-61801 Ankle Complete - Min 3V 15:58:50 CDT CPT-31629 Knee 3V 15:58:50 CDT CPT-35371 Hip comp min 2V 15:58:50 CDT CPT-J2270 Morphine Sulfate 10 mg 14:25:44 TUBER OPERATOR CPT-J2550 Phenergan 12.5 mg (Promethazine) 14:25:44 TUBER OPERATOR CPT-73064 Abx/Therapy Injection 14:25:44 TUBER OPERATOR CPT-J2550 Phenergan 12.5 mg (Promethazine) 14:08:03 TUBER OPERATOR CPT-J2270 Morphine Sulfate 10 mg 14:08:03 TUBER OPERATOR CPT-67737 Bladder Scan 15:00:38 CDT CPT-TCMM Transitional Care Mgmt-Moderate 09:52:22 CDT CPT-J1030 Depo Medrol 40 mg (Methyl Prednisolone Acetate) 10:55: 18 CDT CPT-J1100 Decadron 4mg (Dexamethasone) 10:55:18 CDT CPT-61649 Abx/Therapy Injection 10:55:18 CDT CPT-J1030 Depo Medrol 40 mg (Methyl Prednisolone Acetate) 10:22: 32 CDT CPT-J1100 Decadron 4mg (Dexamethasone) 10:22:32 CDT CPT-87523 Postop F/U Visit 14:37:13 CDT CPT-03991 Ankle Complete - Min 3V 17:11:58 CDT CPT-03904 Foot comp min 3V 17:11:58 CDT CPT-40347 Bladder Scan 09:56:58 CDT CPT-23909 Postop F/U Visit 09:56:58 CDT CPT-81416 Cystoscopy 09:02:42 CDT CPT-22981 Bladder Scan 09:02:42 CDT CPT-28805 Abd single AP View 16:00:35 CDT CPT-72507 Administration single or combination vaccine inc oral 10 :15:43 CDT CPT-02002 Influenza split virus > age 3 10:15:43 CDT CPT-54305 Nail Avulsion 09:24:57 CDT CPT-OV Office Visit 11:15:41 CDT CPT-67723 Abx/Therapy Injection 10:51:30 CDT CPT-J3301 Kenalog 40 mg (Triamcinolone Acetonide) 10:25:12 CDT CPT-J1100 Decadron 4mg (Dexamethasone) 10:25:12 CDT CPT-00058 Anoscopy diagnostic 10:36:12 CDT CPT-OV Office Visit 15:34:31 CDT CPT-16768 Abx/Therapy Injection 08:21:15 TUBER OPERATOR CPT-J1885 Toradol 60 mg (Ketorolac) 10:46:35 TUBER OPERATOR CPT-OV Office Visit 19:51:16 TUBER OPERATOR CPT-80644 Spec Collection and Handling Fee 14:34:18 TUBER OPERATOR CPT-PV Prev. Care Visit 14:19:18 TUBER OPERATOR CPT-81624 Postop F/U Visit 14:47:51 TUBER OPERATOR CPT-27846 Postop F/U Visit 15:15:14 TUBER OPERATOR CPT-49167 Postop F/U Visit 14:41:43 CDT CPT-29446 Postop F/U Visit 15:47:46 CDT CPT-OV Office Visit 15:27:23 CDT CPT-OV Office Visit 17:20:34 CDT CPT-45837 Abx/Therapy Injection 15:05:57 CDT CPT-J1100 Decadron 8mg (Dexamethasone) 14:44:57 CDT CPT-J1040 Depo Medrol 80 mg (Methyl Prednisolone Acetate) 14:44: 57 CDT CPT-JTINJ Joint Injection 10:17:37 CDT CPT-15516 Administration 2+ single or combination vaccines inc oral 13:01:46 TUBER OPERATOR CPT-87305 Administration single or combination vaccine inc oral 13 :01:46 TUBER OPERATOR CPT-00489 Pneumovax 13:01:46 TUBER OPERATOR CPT-17333 Influenza split virus > age 3 13:01:46 TUBER OPERATOR CPT-91389 Administration single or combination vaccine inc oral 08 :56:49 CDT CPT-41316 Tdap 08:56:49 CDT
--- OUTSIDE RECORDS SUMMARY | 2017-03-22 01:48 | XMS REPORT ---
Author Author [facility] [employer] [facility] Medical Staff Organization [facility] [employer] [facility] Address [address] [place], [place] [address] Phone [phone] Care Team Providers Care Diesel Technician Name Role Phone LENKA HUTSON, EUNICE PP [phone] Summary purpose TRANSITION OF CARE AUTO GENERATION [...] Code Type Description Date Performed Performing Physician 88927 CPT-4 EMERGENCY DEPT VISIT 07-26-2014 CHRIS HARRY 72624 CPT-4 EMERGENCY DEPT VISIT 07-26-2014 CHRIS HARRY Functional status Functional Status Finding Observation Time Abdomen Appearance obese 07-22-675061:45 Abdomen non-tender 82-68-442897:45 Bowel Sounds present 74-66-444225:45 Urination normal 22-33-574708:45 Quality sym/unlabored :45 Cough absent :45 Secretions no :45 Breath Sounds RUL clear :45 Breath Sounds RML clear :45 Breath Sounds RLL clear :45 Breath Sounds LESLIE clear :45 Breath Sounds LLL clear :45 Airway natural :45 Oxygen no :30 Temp >100.4 no :45 Temp <96.8 no :45 Chills with rigors no : HR > 90bpm no : Respirations > 20 no :45 Systolic <90 no :45 headache stiff neck no :45 Rapid Resp [...] yes Med/Side Effects Rev yes PNE Vac 2009 Flu Vac 2013 Tetanus Vac 2009
--- OUTSIDE RECORDS SUMMARY | 2017-03-22 01:48 | XMS REPORT | Clinical Summary ---
Author Author Admin, MARGRET Organization [facility] Address Unknown Phone Unavailable Allergies, Adverse Reactions, Alerts Allergy Name Reaction Description Start Date Severity Status Provider VALENTIN Critical Active Rodrigo Montemayorl TRAM INSPECTOR CHLORHEXIDINE GLUCONATE tongue and gums swollen Critical Active Hoa Kabaford RMA NORFLEX Rash Critical Active Silvestrellina Frazell TRAM INSPECTOR TRAZODONE HCL sees things Critical Active [...] infarction, hx of 412 Active Hoa Otto [facility] Old myocardial infarction Pelvic pain 789.09 Active Yolande Lindsay MD PhD Abdominal pain, other specified site; multiple sites Edema 782.3 Active Yolande Lindsay MD PhD Edema Rash 782.1 Active Yolande Lindsay MD PhD Rash and other nonspecific skin eruption Back pain, lumbar 724.2 Active Gab Padron MD Lumbago Cough 786.2 Active Jillina Tyrel TRAM INSPECTOR Cough 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 Jillina Frazellilian TRAM INSPECTOR 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 Anemia 285.9 Active Gab Padron MD Anemia, unspecified Conjunctivitis 372.30 Active Jillina Tyrel TRAM INSPECTOR Conjunctivitis, unspecified Sinusitis 473.9 Active Jillina Frazell TRAM INSPECTOR Unspecified sinusitis (chronic) Nonspecific syndrome suggestive of viral illness 079.99 Active Rodrigo Sarah APRN Unspecified viral infection Laryngitis 464.00 Active Jillina Tyrel TRAM INSPECTOR Acute laryngitis without mention of obstruction [...] 1/2 tab daily for 2 days PREDNISONE 45209913836 No Longer Active Gab Padron MD Active ZOFRAN ODT 4 MG TBDP 1 po q6hr PRN Nausea ONDANSETRON 71677162002 Active Jillina Frazell TRAM INSPECTOR Active IBUPROFEN 600 MG TAB 1 tablet by mouth every 6 hours for 7 days, then 1 tablet every 6 hours as needed. Take with food IBUPROFEN 88368832784 Active Jillina Frazell TRAM INSPECTOR Active BACTRIM DS 800-160 MG TAB 1 tab by mouth twice daily TRIMETHOPRIM-SULFAMETHOXAZOLE 33328094488 No Longer Active Gab Padron MD Active ADVAIR DISKUS 250-50 MCG/DOSE AEPB 1 puff BID FLUTICASONE- SALMETEROL 69499264191 Active Rodrigo Sarah APRN Active LEVOTHYROXINE SODIUM 75 MCG TABS Take 1 tab daily LEVOTHYROXINE SODIUM 57141605458 No Longer Active Mariana HICKEYA Active SYNTHROID 88 MCG ORAL TABS Take one by mouth daily LEVOTHYROXINE SODIUM 86833176118 Active Mariana HICKEYA Active CHERATUSSIN AC 100-10 MG/5ML SYRP 1 tsp by mouth every 4 hours as needed for cough GUAIFENESIN-CODEINE 35401500799 No Longer Active Gab Padron MD Active POLYTRIM 18474-7.1 UNIT/ML-% SOLN 1 gtt to affected eye q3h x 7 days POLYMYXIN B-TRIMETHOPRIM 17070291440 No Longer Active Gab Padron MD Active FLUTICASONE PROPIONATE 50 MCG/ACT SUSP 1 to 2 sprays each nostril daily 04/21 FLUTICASONE PROPIONATE 92124870193 No Longer Active Gab Padron MD Active TRILEPTAL 600 MG TABS Take one 1 tablet in Am and 1 tablet at night OXCARBAZEPINE 46988400358 Active Gab Padron MD Active CEFDINIR 300 MG CAPS 1 po BID x 10 days CEFDINIR 39109187591 No Longer Active Rodrigo Sarah APRN Active CEFTIN 500 MG TAB 1 twice a day CEFUROXIME AXETIL 63490130980 No Longer Active Gab Padron MD Active AZITHROMYCIN 250 MG TABS 2 po qd x 1 day, then 1 po qd x 4 days AZITHROMYCIN 40338088247 No Longer Active Silvestrellnacho Sarah APRN Active CLARITIN 10 MG TAB 1 tablet by mouth daily as needed for allergies LORATADINE 16825742944 Active Silvestrellnacho Sarah APRN Active OXYCODONE HCL 5 MG ORAL CAPS 1 TAB PO Q HS OXYCODONE HCL 88891692259 No Longer Active Rodrigo Sarah APRN Active NIASPAN 500 MG ORAL CR-TABS 1 pill nightly x 1 week, then 2 pills nightly x 1 week, then 3 pills nightly x 1 week, then 4 pills nightly NIACIN (ANTIHYPERLIPIDEMIC) 20841341305 No Longer Active Rodrigo Sarah APRN Active NIACIN 500 MG TABS 1 pill by mouth nightly x 1 week, then 2 pills x 1 week, then 3 pills x 1 week, then 4 pills nightly - take after evening meal, with applesauce or an apple NIACIN 50228506752 No Longer Active Yolande Lindsay MD PhD Active FISH OIL 1000 MG CAPS 3 pills daily OMEGA-3 FATTY ACIDS 55764129277 Active Yolande Lindsay MD PhD Active TRIAMCINOLONE ACETONIDE 0.1 % CREA apply bid sparingly to rash TRIAMCINOLONE ACETONIDE 63678394212 Active Yolande Lindsay MD PhD Active FUROSEMIDE 20 MG TAB 1 tablet by mouth daily FUROSEMIDE 77437603515 Active Tisha Lambert APRN Active LISINOPRIL 20 MG ORAL TABS 1 tab by mouth daily LISINOPRIL 63392261300 Active Gab Padron MD Active FUROSEMIDE 20 MG TABS 1 pill by mouth daily, for edema FUROSEMIDE 97171262313 No Longer Active Yolande Lindsay MD PhD Active ATORVASTATIN CALCIUM 10 MG TABS 1 pill by mouth daily, for cholesterol 09/06 ATORVASTATIN CALCIUM 86913508941 Active Gab Padron MD Active CALCIUM 600+D PLUS MINERALS 600-400 MG-UNIT ORAL CHEW 1 tab by mouth daily CALCIUM CARBONATE-VIT D-MIN 15901890055 No Longer Active Yolande Lindsay MD PhD Active CYCLOBENZAPRINE HCL 10 MG TABS 1 tablet by mouth three times daily as needed for muscle spasm/pain CYCLOBENZAPRINE HCL 00780843168 Active Yolande Lindsay MD PhD Active ONDANSETRON 4 MG TBDP 1 q4h PRN nausea ONDANSETRON 45717883844 Active Yolande Lindsay MD PhD Active ADULT ASPIRIN EC LOW STRENGTH 81 MG TBEC Take 1 tablet by mouth daily 2014 ASPIRIN 66297792926 No Longer Active Yolande Lindsay MD PhD Active ZOFRAN ODT 4 MG TBDP 1 pill dissolved by mouth every 4 hours if needed for nausea ONDANSETRON 81783550323 No Longer Active Yolande Lindsay MD PhD Active CEFTIN 500 MG TAB 1 twice a day CEFUROXIME AXETIL 65378755632 No Longer Active Yolande Lindsay MD PhD Active ALBUTEROL SULFATE 0.083 % NEBU SOLN one vial per nebulizer every 4-6 hours as needed ALBUTEROL SULFATE 58149186842 No Longer Active Alexis Ordaz MD Active DOXYCYCLINE HYCLATE 100 MG CAP 1 cap by mouth twice daily DOXYCYCLINE HYCLATE 67427737873 No Longer Active Yolande Lindsay MD PhD Active CYCLOBENZAPRINE HCL 10 MG TABS 1/2 - 1 tab by mouth three times daily if needed for spasms/pain CYCLOBENZAPRINE HCL 23827740649 No Longer Active Yolande Lindsay MD PhD Active AZITHROMYCIN 250 MG TABS 2 pills on day 1, then 1 pill daily x 4 days AZITHROMYCIN 28646221213 No Longer Active Yolande Lindsay MD PhD Active XOPENEX 1.25 MG/3ML NEBU 1 neb every 4 hours if needed for cough/congestion LEVALBUTEROL HCL 97148701331 No Longer Active Yolande Lindsay MD PhD Active DOXYCYCLINE HYCLATE 100 MG TAB 1 tab twice a day for 14 days 2013 DOXYCYCLINE HYCLATE 01780216190 No Longer Active Yolande Lindsay MD PhD Active PREVACID 30 MG CPDR Take 1 tablet by mouth daily-PRN LANSOPRAZOLE 47980776533 No Longer Active Yolande Lindsay MD PhD Active PA VITAMIN D-3 2000 UNIT CAPS 1 CAP PO DAILY CHOLECALCIFEROL 22995280016 No Longer Active Yolande Lindsay MD PhD Active CEFDINIR 300 MG CAPS by mouth twice a day CEFDINIR 48982121179 No Longer Active Gab Padron MD Active TOPAMAX 50 MG TABS 1 PO twice daily TOPIRAMATE 43522507228 Active Yolande Lindsay MD PhD Active AZITHROMYCIN 250 MG TABS 2 po qd x 1 day, then 1 po qd x 4 days AZITHROMYCIN 53638539163 No Longer Active Yolande Lindsay MD PhD Active DICLOFENAC SODIUM 75 MG TBEC 1 tablet by q 12 hours PRN headaches DICLOFENAC SODIUM 46362849736 No Longer Active Yolande Lindsay MD PhD Active FLONASE 50 MCG/ACT SUSP 1 spray each nostril am and hs FLUTICASONE PROPIONATE 75744071906 No Longer Active Todd Callaway MD Active ANUSOL-HC 25 MG SUPPOSITORY 1 rectally twice a day as needed for hemorrhoids HYDROCORTISONE JAYDEN (RECTAL) 26392128083 No Longer Active Yolande Lindsay MD PhD Active ANUSOL-HC 25 MG SUPPOSITORY 1 suppository rectally each evening as needed for anal fissure HYDROCORTISONE JAYDEN (RECTAL) 57162543188 No Longer Active LONNIE Iglesias Active VALIUM 5 MG TAB 1 po 30 minutes prior to your MRI DIAZEPAM 94354665143 No Longer Active LONNIE Iglesias Active METHOCARBAMOL 750 MG TABS 1 PO QID PRN METHOCARBAMOL 66018929173 No Longer Active Daphne Wetzel APRN Active NITROSTAT 0.4 MG SUBL as directed NITROGLYCERIN 10046325196 No Longer Active Rodrigo Sarah APRN Active ROBAXIN-750 750 MG TABS 2 four times a day for 3 days as needed for muscle spasm, then 1 four times a day as needed METHOCARBAMOL 53079913731 No Longer Active Rodrigo Sarah APRN Active HYDROCODONE-ACETAMINOPHEN 5-325 MG TABS 1 q 4-6 hrs prn HYDROCODONE-ACETAMINOPHEN 10484618417 No Longer Active Rodrigo Sarah TRAM INSPECTOR Active VERAPAMIL HCL CR 180 MG CR-TABS TAKE 1 TAB DAILY VERAPAMIL HCL 98876727118 No Longer Active Yolande Lindsay MD PhD Active BACTRIM DS 800-160 MG TAB 1 tab by mouth twice daily TRIMETHOPRIM-SULFAMETHOXAZOLE 75221143332 No Longer Active Yolande Lindsay MD PhD Active NEXIUM 40 MG PACK 1 by mouth daily ESOMEPRAZOLE MAGNESIUM 36723529323 No Longer Active Des Hines MD Active EPIPEN 2-CHARLETTE 0.3 MG/0.3ML OMARI as need for allergic reaction EPINEPHRINE 23508196979 Active Yolande Lindsay MD PhD Active NEXIUM 40 MG CPDR 1 PO Q D DAY ESOMEPRAZOLE MAGNESIUM 95765652463 No Longer Active Sadia Perry RN Active NEXIUM 40 MG PACK 1 by mouth daily NEXIUM 40 MG PACK ESOMEPRAZOLE MAGNESIUM Inactive VERAPAMIL HCL CR 180 MG CR-TABS TAKE 1 TAB DAILY VERAPAMIL HCL CR 180 MG CR-TABS VERAPAMIL HCL Inactive HYDROCODONE-ACETAMINOPHEN 5-325 MG TABS 1 q 4-6 hrs prn HYDROCODONE-ACETAMINOPHEN 5-325 MG TABS 369935 HYDROCODONE-ACETAMINOPHEN Inactive ROBAXIN-750 750 MG TABS 2 four times a day for 3 days as needed for muscle spasm, then 1 four times a day as needed ROBAXIN-750 750 MG TABS 585164 METHOCARBAMOL Inactive NITROSTAT 0.4 MG SUBL as directed NITROSTAT 0.4 MG SUBL NITROGLYCERIN Inactive METHOCARBAMOL 750 MG TABS 1 PO QID PRN METHOCARBAMOL 750 MG TABS 068679 METHOCARBAMOL Inactive VALIUM 5 MG TAB 1 po 30 minutes prior to your MRI VALIUM 5 MG TAB 615170 DIAZEPAM Inactive ANUSOL-HC 25 MG SUPPOSITORY 1 suppository rectally each evening as needed for anal fissure ANUSOL-HC 25 MG SUPPOSITORY 5025870 HYDROCORTISONE JAYDEN (RECTAL) Inactive ANUSOL-HC 25 MG SUPPOSITORY 1 rectally twice a day as needed for hemorrhoids ANUSOL-HC 25 MG SUPPOSITORY 4378401 HYDROCORTISONE JAYDEN (RECTAL) Inactive FLONASE 50 MCG/ACT SUSP 1 spray each nostril am and hs FLONASE 50 MCG/ACT SUSP FLUTICASONE PROPIONATE Inactive DICLOFENAC SODIUM 75 MG TBEC 1 tablet by q 12 hours PRN headaches DICLOFENAC SODIUM 75 MG TBEC 297615 DICLOFENAC SODIUM Inactive PA VITAMIN D-3 2000 UNIT CAPS 1 CAP PO DAILY PA VITAMIN D-3 2000 UNIT CAPS CHOLECALCIFEROL Inactive PREVACID 30 MG CPDR Take 1 tablet by mouth daily-PRN PREVACID 30 MG CPDR 043500 LANSOPRAZOLE Inactive DOXYCYCLINE HYCLATE 100 MG TAB 1 tab twice a day for 14 days 2013 DOXYCYCLINE HYCLATE 100 MG TAB 2535706 DOXYCYCLINE HYCLATE Inactive XOPENEX 1.25 MG/3ML NEBU 1 neb every 4 hours if needed for cough/congestion XOPENEX 1.25 MG/3ML NEBU 421119 LEVALBUTEROL HCL Inactive CYCLOBENZAPRINE HCL 10 MG TABS 1/2 - 1 tab by mouth three times daily if needed for spasms/pain CYCLOBENZAPRINE HCL 10 MG TABS 464921 CYCLOBENZAPRINE HCL Inactive ALBUTEROL SULFATE 0.083 % NEBU SOLN one vial per nebulizer every 4-6 hours as needed ALBUTEROL SULFATE 0.083 % NEBU SOLN 380836 ALBUTEROL SULFATE Inactive CEFTIN 500 MG TAB 1 twice a day CEFTIN 500 MG TAB 456369 CEFUROXIME AXETIL Inactive ZOFRAN ODT 4 MG TBDP 1 pill dissolved by mouth every 4 hours if needed for nausea ZOFRAN ODT 4 MG TBDP 948936 ONDANSETRON Inactive ADULT ASPIRIN EC LOW STRENGTH 81 MG TBEC Take 1 tablet by mouth daily 2014 ADULT ASPIRIN EC LOW STRENGTH 81 MG TBEC 434288 ASPIRIN Inactive CALCIUM 600+D PLUS MINERALS 600-400 [...] or an apple NIACIN 500 MG TABS 339834 NIACIN Inactive NIASPAN 500 MG ORAL CR-TABS 1 pill nightly x 1 week, then 2 pills nightly x 1 week, then 3 pills nightly x 1 week, then 4 pills nightly NIASPAN 500 MG ORAL CR-TABS NIACIN (ANTIHYPERLIPIDEMIC) Inactive OXYCODONE HCL 5 MG ORAL CAPS 1 TAB PO Q HS OXYCODONE HCL 5 MG ORAL CAPS 0674438 OXYCODONE HCL Inactive FLUTICASONE PROPIONATE 50 MCG/ACT SUSP 1 to 2 sprays each nostril daily 04/21 FLUTICASONE PROPIONATE 50 MCG/ACT SUSP 012732 FLUTICASONE PROPIONATE Inactive POLYTRIM 66477-4.1 UNIT/ML-% SOLN 1 gtt to affected eye q3h x 7 days POLYTRIM 55728-2.1 UNIT/ML-% SOLN 113525 POLYMYXIN B- TRIMETHOPRIM Inactive CHERATUSSIN AC 100-10 MG/5ML SYRP 1 tsp by mouth every 4 hours as needed for cough CHERATUSSIN AC 100-10 MG/5ML SYRP 205511 GUAIFENESIN-CODEINE Inactive LEVOTHYROXINE SODIUM 75 MCG TABS Take 1 tab daily LEVOTHYROXINE SODIUM 75 MCG TABS 922256 LEVOTHYROXINE SODIUM Inactive BACTRIM DS 800-160 MG TAB 1 tab by mouth twice daily BACTRIM DS 800-160 MG TAB 19820606 TRIMETHOPRIM-SULFAMETHOXAZOLE Inactive AZITHROMYCIN 250 MG TABS 2 po qd x 1 day, then 1 po qd x 4 days AZITHROMYCIN 250 MG TABS 2564358 AZITHROMYCIN Inactive CEFDINIR 300 MG CAPS by mouth twice a day CEFDINIR 300 MG CAPS 894440 CEFDINIR Inactive AZITHROMYCIN 250 MG TABS 2 pills on day 1, then 1 pill daily x 4 days AZITHROMYCIN 250 MG TABS 2477656 AZITHROMYCIN Inactive DOXYCYCLINE HYCLATE 100 MG CAP 1 cap by mouth twice daily DOXYCYCLINE HYCLATE 100 MG CAP 4712857 DOXYCYCLINE HYCLATE Inactive FUROSEMIDE 20 MG TABS 1 pill by mouth daily, for edema FUROSEMIDE 20 MG TABS 997526 FUROSEMIDE Inactive AZITHROMYCIN 250 MG TABS 2 po qd x 1 day, then 1 po qd x 4 days AZITHROMYCIN 250 MG TABS 8752656 AZITHROMYCIN Inactive CEFTIN 500 MG TAB 1 twice a day CEFTIN 500 MG TAB 638630 CEFUROXIME AXETIL Inactive CEFDINIR 300 MG CAPS [...] for 2 days PREDNISONE 20 MG TAB 028453 PREDNISONE Inactive Immunizations Vaccine Administration Date Value Standard Description Seasonal influenza vaccine, injectable, containing preservative, for > 3 years old (Afluria, FluLaval, Fluzone, Fluvirin, Fluarix, Agriflu(>=18 yo)) Fluzone (>3 yrs.) [KFZ682] Influenza, seasonal, injectable influenza immunization (Flu Vax) has been administered Influenza - Unspecified Formulation [CVX88] influenza virus vaccine, unspecified formulation Seasonal influenza vaccine, injectable, containing preservative, for > 3 years old (Afluria, FluLaval, Fluzone, Fluvirin, Fluarix, Agriflu(>=18 yo)) Fluzone (>3 yrs.) [FON681] Influenza, seasonal, injectable pneumococcal immunization administered Pneumovax 23 [CVX33] pneumococcal polysaccharide vaccine, 23 valent dT (Diphtheria and Tetanus) booster given given Td(adult) unspecified formulation Boostrix (Tetanus toxoid, reduced diphtheria toxoid and acellular pertussis vaccine, adsorbed), booster Boostrix [BDT335] tetanus toxoid, reduced diphtheria toxoid, and acellular [...] Panel - Chemistry sodium, serum 142 mmol/L 024-807 1913/06/30 potassium, serum 4.4 mmol/L 3.5-5.2 chloride, serum 108 mmol/L 98-107 carbon dioxide, venous blood 25.1 mmol/L 21.0-32.0 blood glucose 82 mg/dL 65-110 calcium, serum 9.1 mg/dL 8.5-10.1 urea nitrogen, blood 18 mg/dL 7-18 creatinine, serum 1.31 mg/dL 0.55-1.30 Lab Report: [facility] Advanced Lipid and Inlammation Panel /54349 - Chemistry cholesterol, serum 148 mg/dL 101-551 1431/09/02 HDL cholesterol, serum 55 mg/dL > OR=46 [...] (L) - Chemistry sodium, serum 145 mmol/L 907-078 9620/09/02 potassium, serum 4.6 mmol/L 3.5-5.2 chloride, serum [...] Rate - Chemistry sodium, serum 139 mmol/L 207-156 5979/03/24 carbon dioxide, venous blood 22.4 mmol/L 21.0-32.0 [...] Negative mg/dL Negative sodium, serum 143 mmol/L 803-002 8374/05/02 carbon dioxide, venous blood 25.6 mmol/L 21.0-32.0 potassium, serum 4.8 mmol/L 3.5-5.2 chloride, serum 108 mmol/L 98-107 blood glucose 70 mg/dL 65-110 urea nitrogen, blood 20 mg/dL 7-18 creatinine, serum 1.21 mg/dL 0.55-1.30 alanine aminotransferase (SGPT), serum 32 U/L 12-78 aspartate aminotransferase (SGOT), serum 18 U/L 15-37 calcium, serum 8.5 mg/dL 8.5-10.1 bilirubin, serum, total 0.30 mg/dL 0.00-1.00 RBC, urine, dipstick Negative Negative TSH 0.63 [...] dipstick Negative Negative sodium, serum 142 mmol/L 334-511 8511/07/18 carbon dioxide, venous blood 27.8 mmol/L 21.0-32.0 [...] mg/dL Office Visit: GET EST - Chemistry triglyceride, target level 150 mg/dL HDL cholesterol, serum, target level 40 mg/dL LDL target level 100 mg/dL cholesterol, target level 200 mg/dL Encounters Code Encounter Date Provider Facility CPT-26902 Level 3 Est. Patient 11:01:51 CDT Gab Padron MD [facility] CPT-66796 Level 3 Est. Patient 15:27:02 CDT Jared Og MD [facility] [place] CPT-64909 Level 4 Est. Patient 09:25:27 CDT Gab Padron MD [facility] CPT-03890 Level 3 Est. Patient 10:29:41 CDT Rodrigo Sarah [facility] CPT-65821 Level 4 Est. Patient 17:51:05 CDT Gab Padron MD [facility] CPT-39531 Level 3 Est. Patient 14:18:08 CDT Gab Padron MD [facility] CPT-01229 Level 4 Est. Patient 10:18:54 CDT Gab Padron MD [facility] CPT-24740 Level 3 Est. Patient 11:30:07 CDT Rodrigo Sarah [facility] CPT-22107 Level 4 Est. Patient 21:02:30 INSURANCE ADMINISTRATIVE ASSISTANT Gab Padron MD [facility] CPT-95718 Level 3 Est. Patient 11:02:19 INSURANCE ADMINISTRATIVE ASSISTANT Gab Padron MD [facility] CPT-60944 Level 4 Est. Patient 22:24:31 INSURANCE ADMINISTRATIVE ASSISTANT Gab Padron MD [facility] CPT-88919 Level 3 Est. Patient 18:33:46 INSURANCE ADMINISTRATIVE ASSISTANT Gab Padron MD [facility] [place]-31367 Level 3 Est. Patient 16:19:11 CDT Yolande Lindsay MD [facility]-81224 Level 3 Est. Patient 18:59:14 CDT Yolande Lindsay MD [facility]-88509 Level 4 Est. Patient 21:29:26 CDT Yolande Lindsay MD [facility]-49521 Level 3 Est. Patient 07:37:45 CDT Yolande Lindsay MD [facility]-92140 Level 3 Est. Patient 17:03:46 CDT Yolande Lindsay MD [facility]-51668 Level 4 Est. Patient 20:02:13 INSURANCE ADMINISTRATIVE ASSISTANT Yolande Lindsay MD [facility]-52753 Level 3 Est. Patient 16:02:07 INSURANCE ADMINISTRATIVE ASSISTANT Alexis Ordaz MD [facility] [place]-11657 Level 3 Est. Patient 12:41:24 INSURANCE ADMINISTRATIVE ASSISTANT Yolande Lindsay MD [facility]-25545 Level 3 Est. Patient 15:41:20 INSURANCE ADMINISTRATIVE ASSISTANT Yolande Lindsay MD [facility]-19642 Level 3 Est. Patient 13:20:02 INSURANCE ADMINISTRATIVE ASSISTANT Yolande Lindsay MD [facility] CPT-48981 Level 3 Est. Patient 15:00:38 CDT Jared gO MD [facility]-83504 Level 3 Est. Patient 10:22:32 CDT Yolande Lindsay MD [facility]-27622 Level 3 Est. Patient 17:12:58 CDT Yolande Lindsay MD [facility]-09505 Level 4 Est. Patient 13:30:58 CDT Yolande Lindsay MD [facility] CPT-93064 Level 4 New Patient 09:02:42 CDT Jared Og MD [facility]-64666 Level 3 Est. Patient 08:19:07 CDT Yolande Lindsay MD [facility]-96632 Level 3 Est. Patient 12:00:13 INSURANCE ADMINISTRATIVE ASSISTANT Gab Padron MD [facility] [place]-29074 Level 3 Est. Patient 16:15:23 INSURANCE ADMINISTRATIVE ASSISTANT Yolande Lindsay MD [facility]-98725 Level 2 Est. Patient 19:47:15 CDT Yolande Lindsay MD [facility]-78975 Level 3 Est. Patient 21:38:31 CDT Yolande Lindsay MD [facility]-08666 Level 3 Est. Patient 10:25:12 CDT Adiel PERAZA [facility] CPT-14051 Level 4 Est. Patient 10:51:58 CDT Yolande Lindsay MD [facility]-62648 Level 3 Est. Patient 14:04:55 INSURANCE ADMINISTRATIVE ASSISTANT Rodrigo Sarah [facility] CPT-10840 Level 3 Est. Patient 10:46:35 INSURANCE ADMINISTRATIVE ASSISTANT Rodrigo Sarah [facility]-71317 Level 3 Est. Patient 14:24:37 INSURANCE ADMINISTRATIVE ASSISTANT Yolande Lindsay MD PhD [facility] [place]-12260 Level 3 Est. Patient 17:41:58 INSURANCE ADMINISTRATIVE ASSISTANT Yolnade Lindsay MD [facility]-76165 Level 2 Est. Patient 22:01:41 INSURANCE ADMINISTRATIVE ASSISTANT Rodrigo Sarah [facility]-12614 Level 2 Est. Patient 22:01:11 INSURANCE ADMINISTRATIVE ASSISTANT Rodrigo Sarah [facility] CPT-17056 Level 3 Est. Patient 10:12:29 INSURANCE ADMINISTRATIVE ASSISTANT Rodrigo Sarah [facility] CPT-25721 Level 3 Est. Patient 11:05:44 CDT Alexis Ordaz MD [facility] CPT-46665 Level 3 Est. Patient 14:57:20 CDT Yolande Lindsay MD [facility] CPT-59370 Level 3 Est. Patient 14:40:57 CDT Yolande Lindsay MD [facility] CPT-23593 Level 3 Est. Patient 20:55:40 CDT Yolande Lindsay MD [facility] CPT-67129 Level 3 Est. Patient 12:42:38 INSURANCE ADMINISTRATIVE ASSISTANT Yolande Lindsay MD [facility] CPT-67060 Level 3 Est. Patient 11:54:49 INSURANCE ADMINISTRATIVE ASSISTANT Des Hines MD [facility] CPT-23396 Level 3 Est. Patient 17:06:38 CDT Dewayne PERAZA [facility] Procedures Code Procedure Name Date Entry Date Standard Description CPT-28891 Foot, left, comp min 3V - XRAY USE ONLY 09:24:54 CDT CPT-58830 Abd single AP View - XRAY USE ONLY 11:16:17 CDT CPT-06574 T spine AP/ Lat - XRAY USE ONLY 09:34:21 CDT CPT-75713 Chest 2V Frontal and Lat - XRAY USE ONLY 10:48:51 CDT CPT-70012 LS spine comp w obliq 13:28:00 INSURANCE ADMINISTRATIVE ASSISTANT CPT-J1040 Depo Medrol 80 mg (Methyl Prednisolone Acetate) 10:51: 28 INSURANCE ADMINISTRATIVE ASSISTANT CPT-J1100 Decadron 8mg (Dexamethasone) 10:51:28 INSURANCE ADMINISTRATIVE ASSISTANT CPT-52565 Abx/Therapy Injection 10:51:28 INSURANCE ADMINISTRATIVE ASSISTANT CPT-J1100 Decadron 8mg (Dexamethasone) 21:02:30 INSURANCE ADMINISTRATIVE ASSISTANT CPT-J1040 Depo Medrol 80 mg (Methyl Prednisolone Acetate) 21:02: 30 INSURANCE ADMINISTRATIVE ASSISTANT [id number] Event Monitor - MC Transmission 09:12:32 CDT 08/06 [id number] Event Monitor - MC review and interp 09:12:32 CDT [id number] Event Monitor - MC recording 09:12:32 CDT CPT-69140 EKG Trac and Interp 16:50:22 CDT CPT-J1030 Depo Medrol 40 mg (Methyl Prednisolone Acetate) 17:05: 54 CDT CPT-J1100 Decadron 4mg (Dexamethasone) 17:05:54 CDT CPT-46282 Abx/Therapy Injection 17:05:54 CDT CPT-J1100 Decadron 4mg (Dexamethasone) 16:55:28 CDT CPT-J1030 Depo Medrol 40 mg (Methyl Prednisolone Acetate) 16:55: 28 CDT CPT-83759 Ankle Complete - Min 3V 15:58:50 CDT CPT-14978 Knee 3V 15:58:50 CDT CPT-48592 Hip comp min 2V 15:58:50 CDT CPT-J2270 Morphine Sulfate 10 mg 14:25:44 INSURANCE ADMINISTRATIVE ASSISTANT CPT-J2550 Phenergan 12.5 mg (Promethazine) 14:25:44 INSURANCE ADMINISTRATIVE ASSISTANT CPT-46442 Abx/Therapy Injection 14:25:44 INSURANCE ADMINISTRATIVE ASSISTANT CPT-J2550 Phenergan 12.5 mg (Promethazine) 14:08:03 INSURANCE ADMINISTRATIVE ASSISTANT CPT-J2270 Morphine Sulfate 10 mg 14:08:03 INSURANCE ADMINISTRATIVE ASSISTANT CPT-31541 Bladder Scan 15:00:38 CDT CPT-TCMM Transitional Care Mgmt-Moderate 09:52:22 CDT CPT-J1030 Depo Medrol 40 mg (Methyl Prednisolone Acetate) 10:55: 18 CDT CPT-J1100 Decadron 4mg (Dexamethasone) 10:55:18 CDT CPT-07757 Abx/Therapy Injection 10:55:18 CDT CPT-J1030 Depo Medrol 40 mg (Methyl Prednisolone Acetate) 10:22: 32 CDT CPT-J1100 Decadron 4mg (Dexamethasone) 10:22:32 CDT CPT-21251 Postop F/U Visit 14:37:13 CDT CPT-44754 Ankle Complete - Min 3V 17:11:58 CDT CPT-21603 Foot comp min 3V 17:11:58 CDT CPT-97604 Bladder Scan 09:56:58 CDT CPT-67210 Postop F/U Visit 09:56:58 CDT CPT-63289 Cystoscopy 09:02:42 CDT CPT-00852 Bladder Scan 09:02:42 CDT CPT-48895 Abd single AP View 16:00:35 CDT CPT-65203 Administration single or combination vaccine inc oral 10 :15:43 CDT CPT-00264 Influenza split virus > age 3 10:15:43 CDT CPT-42099 Nail Avulsion 09:24:57 CDT CPT-OV Office Visit 11:15:41 CDT CPT-85397 Abx/Therapy Injection 10:51:30 CDT CPT-J3301 Kenalog 40 mg (Triamcinolone Acetonide) 10:25:12 CDT CPT-J1100 Decadron 4mg (Dexamethasone) 10:25:12 CDT CPT-71036 Anoscopy diagnostic 10:36:12 CDT CPT-OV Office Visit 15:34:31 CDT CPT-77563 Abx/Therapy Injection 08:21:15 INSURANCE ADMINISTRATIVE ASSISTANT CPT-J1885 Toradol 60 mg (Ketorolac) 10:46:35 INSURANCE ADMINISTRATIVE ASSISTANT CPT-OV Office Visit 19:51:16 INSURANCE ADMINISTRATIVE ASSISTANT CPT-54406 Spec Collection and Handling Fee 14:34:18 INSURANCE ADMINISTRATIVE ASSISTANT CPT-PV Prev. Care Visit 14:19:18 INSURANCE ADMINISTRATIVE ASSISTANT CPT-69789 Postop F/U Visit 14:47:51 INSURANCE ADMINISTRATIVE ASSISTANT CPT-83988 Postop F/U Visit 15:15:14 INSURANCE ADMINISTRATIVE ASSISTANT CPT-48601 Postop F/U Visit 14:41:43 CDT CPT-48380 Postop F/U Visit 15:47:46 CDT CPT-OV Office Visit 15:27:23 CDT CPT-OV Office Visit 17:20:34 CDT CPT-15781 Abx/Therapy Injection 15:05:57 CDT CPT-J1100 Decadron 8mg (Dexamethasone) 14:44:57 CDT CPT-J1040 Depo Medrol 80 mg (Methyl Prednisolone Acetate) 14:44: 57 CDT CPT-JTINJ Joint Injection 10:17:37 CDT CPT-21791 Administration 2+ single or combination vaccines inc oral 13:01:46 INSURANCE ADMINISTRATIVE ASSISTANT CPT-52516 Administration single or combination vaccine inc oral 13 :01:46 INSURANCE ADMINISTRATIVE ASSISTANT CPT-53551 Pneumovax 13:01:46 INSURANCE ADMINISTRATIVE ASSISTANT CPT-17203 Influenza split virus > age 3 13:01:46 INSURANCE ADMINISTRATIVE ASSISTANT CPT-38322 Administration single or combination vaccine inc oral 08 :56:49 CDT CPT-22211 Tdap 08:56:49 CDT
--- OUTSIDE RECORDS SUMMARY | 2017-03-22 01:51 | XMS REPORT | Clinical Summary ---
Author Author Admin, MARGRET Organization [employer] Address Unknown Phone Unavailable Allergies, Adverse Reactions, Alerts Allergy Name Reaction Description Start Date Severity Status Provider VALENTIN Critical Active Rodrigo Montemayorl CIVIL RIGHTS REPRESENTATIVE CHLORHEXIDINE GLUCONATE tongue and gums swollen Critical Active Hoa Kabaford RMA NORFLEX Rash Critical Active Silvestrellina Frazell CIVIL RIGHTS REPRESENTATIVE TRAZODONE HCL sees things Critical Active [...] PhD Internal hemorrhoids with other complication POISON KUNLA DERMATITIS 692.6 Resolved Yolande Lindsay MD PhD [...] MD Lumbago Cough 786.2 Active Jillina Tyrel CIVIL RIGHTS REPRESENTATIVE Cough 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 Jillina Frazellilian CIVIL RIGHTS REPRESENTATIVE 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 Anemia 285.9 Active Gab Padron MD Anemia, unspecified Conjunctivitis 372.30 Active Jillina Tyrel CIVIL RIGHTS REPRESENTATIVE Conjunctivitis, unspecified Sinusitis 473.9 Active Jillina Frazell CIVIL RIGHTS REPRESENTATIVE Unspecified sinusitis (chronic) Nonspecific syndrome suggestive of viral illness 079.99 Active Rodrigo Sarah APRN Unspecified viral infection Laryngitis 464.00 Active Jillina Tyrel CIVIL RIGHTS REPRESENTATIVE Acute laryngitis without mention of obstruction [...] 1/2 tab daily for 2 days PREDNISONE 67754041163 Active Gab Padron MD Active ZOFRAN ODT 4 MG TBDP 1 po q6hr PRN Nausea ONDANSETRON 43015604210 Active Rodrigo Sarah APRN Active IBUPROFEN 600 MG TAB 1 tablet by mouth every 6 hours for 7 days, then 1 tablet every 6 hours as needed. Take with food IBUPROFEN 13332937829 Active Jillnacho Frazellilian GAUTAM Active BACTRIM DS 800-160 MG TAB 1 tab by mouth twice daily TRIMETHOPRIM-SULFAMETHOXAZOLE 56907841230 No Longer Active Gab Padron MD Active ADVAIR DISKUS 250-50 MCG/DOSE AEPB 1 puff BID FLUTICASONE- SALMETEROL 68634640208 Active Rodrigo Sarah APRN Active LEVOTHYROXINE SODIUM 75 MCG TABS Take 1 tab daily LEVOTHYROXINE SODIUM 33332265816 No Longer Active Mariana HICKEYA Active SYNTHROID 88 MCG ORAL TABS Take one by mouth daily LEVOTHYROXINE SODIUM 55492235960 Active Mariana HICKEYA Active CHERATUSSIN AC 100-10 MG/5ML SYRP 1 tsp by mouth every 4 hours as needed for cough GUAIFENESIN-CODEINE 27800319440 No Longer Active Gab Padron MD Active POLYTRIM 20168-3.1 UNIT/ML-% SOLN 1 gtt to affected eye q3h x 7 days POLYMYXIN B-TRIMETHOPRIM 50709383780 No Longer Active Gab Padron MD Active FLUTICASONE PROPIONATE 50 MCG/ACT SUSP 1 to 2 sprays each nostril daily 04/21 FLUTICASONE PROPIONATE 21660216279 No Longer Active Gab Padron MD Active TRILEPTAL 600 MG TABS Take one 1 tablet in Am and 1 tablet at night OXCARBAZEPINE 32600547510 Active Gab Padron MD Active CEFDINIR 300 MG CAPS 1 po BID x 10 days CEFDINIR 74810880494 No Longer Active Rodrigo Sarah APRN Active CEFTIN 500 MG TAB 1 twice a day CEFUROXIME AXETIL 27586137350 No Longer Active Gab Padron MD Active AZITHROMYCIN 250 MG TABS 2 po qd x 1 day, then 1 po qd x 4 days AZITHROMYCIN 06600229418 No Longer Active Silvestrellnacho Sarah APRN Active CLARITIN 10 MG TAB 1 tablet by mouth daily as needed for allergies LORATADINE 10694257305 Active Silvestrellnacho Sarah APRN Active OXYCODONE HCL 5 MG ORAL CAPS 1 TAB PO Q HS OXYCODONE HCL 20807697689 No Longer Active Rodrigo Sarah APRN Active NIASPAN 500 MG ORAL CR-TABS 1 pill nightly x 1 week, then 2 pills nightly x 1 week, then 3 pills nightly x 1 week, then 4 pills nightly NIACIN (ANTIHYPERLIPIDEMIC) 91982636338 No Longer Active Silvestrebernabe Yenhossein CIVIL RIGHTS REPRESENTATIVE Active NIACIN 500 MG TABS 1 pill by mouth nightly x 1 week, then 2 pills x 1 week, then 3 pills x 1 week, then 4 pills nightly - take after evening meal, with applesauce or an apple NIACIN 09434952120 No Longer Active Yolande Lindsay MD PhD Active FISH OIL 1000 MG CAPS 3 pills daily OMEGA-3 FATTY ACIDS 34928824633 Active Yolande Lindsay MD PhD Active TRIAMCINOLONE ACETONIDE 0.1 % CREA apply bid sparingly to rash TRIAMCINOLONE ACETONIDE 02172889159 Active Yolande Lindsay MD PhD Active FUROSEMIDE 20 MG TAB 1 tablet by mouth daily FUROSEMIDE 76302947124 Active Tisha Lambert APRN Active LISINOPRIL 20 MG ORAL TABS 1 tab by mouth daily LISINOPRIL 59085038608 Active Gab Padron MD Active FUROSEMIDE 20 MG TABS 1 pill by mouth daily, for edema FUROSEMIDE 04689737685 No Longer Active Yolande Lindsay MD PhD Active ATORVASTATIN CALCIUM 10 MG TABS 1 pill by mouth daily, for cholesterol 09/06 ATORVASTATIN CALCIUM 37334456087 Active Gab Padron MD Active CALCIUM 600+D PLUS MINERALS 600-400 MG-UNIT ORAL CHEW 1 tab by mouth daily CALCIUM CARBONATE-VIT D-MIN 21040410230 No Longer Active Yolande Lindsay MD PhD Active CYCLOBENZAPRINE HCL 10 MG TABS 1 tablet by mouth three times daily as needed for muscle spasm/pain CYCLOBENZAPRINE HCL 71141813639 Active Yolande Lindsay MD PhD Active ONDANSETRON 4 MG TBDP 1 q4h PRN nausea ONDANSETRON 03612626727 Active Yolande Lindsay MD PhD Active ADULT ASPIRIN EC LOW STRENGTH 81 MG TBEC Take 1 tablet by mouth daily 2014 ASPIRIN 09731466978 No Longer Active Yolande Lindsay MD PhD Active ZOFRAN ODT 4 MG TBDP 1 pill dissolved by mouth every 4 hours if needed for nausea ONDANSETRON 66145289041 No Longer Active Yolande Lindsay MD PhD Active CEFTIN 500 MG TAB 1 twice a day CEFUROXIME AXETIL 74621340349 No Longer Active Yolande Lindsay MD PhD Active ALBUTEROL SULFATE 0.083 % NEBU SOLN one vial per nebulizer every 4-6 hours as needed ALBUTEROL SULFATE 57618933347 No Longer Active Alexis Ordaz MD Active DOXYCYCLINE HYCLATE 100 MG CAP 1 cap by mouth twice daily DOXYCYCLINE HYCLATE 11274336574 No Longer Active Yolande Lindsay MD PhD Active CYCLOBENZAPRINE HCL 10 MG TABS 1/2 - 1 tab by mouth three times daily if needed for spasms/pain CYCLOBENZAPRINE HCL 59709619111 No Longer Active Yolande Lindsay MD PhD Active AZITHROMYCIN 250 MG TABS 2 pills on day 1, then 1 pill daily x 4 days AZITHROMYCIN 15294120088 No Longer Active Yolande Lindsay MD PhD Active XOPENEX 1.25 MG/3ML NEBU 1 neb every 4 hours if needed for cough/congestion LEVALBUTEROL HCL 18498891958 No Longer Active Yolande Lindsay MD PhD Active DOXYCYCLINE HYCLATE 100 MG TAB 1 tab twice a day for 14 days 2013 DOXYCYCLINE HYCLATE 28941721949 No Longer Active Yolande Lindsay MD PhD Active PREVACID 30 MG CPDR Take 1 tablet by mouth daily-PRN LANSOPRAZOLE 98862816706 No Longer Active Yolande Lindsay MD PhD Active PA VITAMIN D-3 2000 UNIT CAPS 1 CAP PO DAILY CHOLECALCIFEROL 27041162642 No Longer Active Yolande Lindsay MD PhD Active CEFDINIR 300 MG CAPS by mouth twice a day CEFDINIR 31980625291 No Longer Active Gab Padron MD Active TOPAMAX 50 MG TABS 1 PO twice daily TOPIRAMATE 84891537395 Active Yolande Lindsay MD PhD Active AZITHROMYCIN 250 MG TABS 2 po qd x 1 day, then 1 po qd x 4 days AZITHROMYCIN 25278509172 No Longer Active Yolande Lindsay MD PhD Active DICLOFENAC SODIUM 75 MG TBEC 1 tablet by q 12 hours PRN headaches DICLOFENAC SODIUM 69988898482 No Longer Active Yolande Lindsay MD PhD Active FLONASE 50 MCG/ACT SUSP 1 spray each nostril am and hs FLUTICASONE PROPIONATE 14844888426 No Longer Active Todd Callaway MD Active ANUSOL-HC 25 MG SUPPOSITORY 1 rectally twice a day as needed for hemorrhoids HYDROCORTISONE JAYDEN (RECTAL) 26452550342 No Longer Active Yolande Lindsay MD PhD Active ANUSOL-HC 25 MG SUPPOSITORY 1 suppository rectally each evening as needed for anal fissure HYDROCORTISONE AJYDEN (RECTAL) 34140239014 No Longer Active LONNIE Iglesias Active VALIUM 5 MG TAB 1 po 30 minutes prior to your MRI DIAZEPAM 08184747334 No Longer Active LONNIE Iglesias Active METHOCARBAMOL 750 MG TABS 1 PO QID PRN METHOCARBAMOL 56640879192 No Longer Active Daphne Wetzel APRN Active NITROSTAT 0.4 MG SUBL as directed NITROGLYCERIN 28093801076 No Longer Active Rodrigo Sarah APRN Active ROBAXIN-750 750 MG TABS 2 four times a day for 3 days as needed for muscle spasm, then 1 four times a day as needed METHOCARBAMOL 47383291469 No Longer Active Rodrigo Sarah APRN Active HYDROCODONE-ACETAMINOPHEN 5-325 MG TABS 1 q 4-6 hrs prn HYDROCODONE-ACETAMINOPHEN 40680672335 No Longer Active Rodrigo Sarah CIVIL RIGHTS REPRESENTATIVE Active VERAPAMIL HCL CR 180 MG CR-TABS TAKE 1 TAB DAILY VERAPAMIL HCL 06609509364 No Longer Active Yolande Lindsay MD PhD Active BACTRIM DS 800-160 MG TAB 1 tab by mouth twice daily TRIMETHOPRIM-SULFAMETHOXAZOLE 97180143023 No Longer Active Yolande Lindsay MD PhD Active NEXIUM 40 MG PACK 1 by mouth daily ESOMEPRAZOLE MAGNESIUM 41860051059 No Longer Active Des Hines MD Active EPIPEN 2-CHARLETTE 0.3 MG/0.3ML OMARI as need for allergic reaction EPINEPHRINE 61904881669 Active Yolande Lindsay MD PhD Active NEXIUM 40 MG CPDR 1 PO Q D DAY ESOMEPRAZOLE MAGNESIUM 28367089993 No Longer Active Sadia Perry RN Active NEXIUM 40 MG PACK 1 by mouth daily NEXIUM 40 MG PACK ESOMEPRAZOLE MAGNESIUM Inactive VERAPAMIL HCL CR 180 MG CR-TABS TAKE 1 TAB DAILY VERAPAMIL HCL CR 180 MG CR-TABS VERAPAMIL HCL Inactive HYDROCODONE-ACETAMINOPHEN 5-325 MG TABS 1 q 4-6 hrs prn HYDROCODONE-ACETAMINOPHEN 5-325 MG TABS 799469 HYDROCODONE-ACETAMINOPHEN Inactive ROBAXIN-750 750 MG TABS 2 four times a day for 3 days as needed for muscle spasm, then 1 four times a day as needed ROBAXIN-750 750 MG TABS 039222 METHOCARBAMOL Inactive NITROSTAT 0.4 MG SUBL as directed NITROSTAT 0.4 MG SUBL NITROGLYCERIN Inactive METHOCARBAMOL 750 MG TABS 1 PO QID PRN METHOCARBAMOL 750 MG TABS 842243 METHOCARBAMOL Inactive VALIUM 5 MG TAB 1 po 30 minutes prior to your MRI VALIUM 5 MG TAB 798965 DIAZEPAM Inactive ANUSOL-HC 25 MG SUPPOSITORY 1 suppository rectally each evening as needed for anal fissure ANUSOL-HC 25 MG SUPPOSITORY 3925081 HYDROCORTISONE JAYDEN (RECTAL) Inactive ANUSOL-HC 25 MG SUPPOSITORY 1 rectally twice a day as needed for hemorrhoids ANUSOL-HC 25 MG SUPPOSITORY 4780794 HYDROCORTISONE JAYDEN (RECTAL) Inactive FLONASE 50 MCG/ACT SUSP 1 spray each nostril am and hs FLONASE 50 MCG/ACT SUSP FLUTICASONE PROPIONATE Inactive DICLOFENAC SODIUM 75 MG TBEC 1 tablet by q 12 hours PRN headaches DICLOFENAC SODIUM 75 MG TBEC 344543 DICLOFENAC SODIUM Inactive PA VITAMIN D-3 2000 UNIT CAPS 1 CAP PO DAILY PA VITAMIN D-3 2000 UNIT CAPS CHOLECALCIFEROL Inactive PREVACID 30 MG CPDR Take 1 tablet by mouth daily-PRN PREVACID 30 MG CPDR 407922 LANSOPRAZOLE Inactive DOXYCYCLINE HYCLATE 100 MG TAB 1 tab twice a day for 14 days 2013 DOXYCYCLINE HYCLATE 100 MG TAB 4194519 DOXYCYCLINE HYCLATE Inactive XOPENEX 1.25 MG/3ML NEBU 1 neb every 4 hours if needed for cough/congestion XOPENEX 1.25 MG/3ML NEBU 212965 LEVALBUTEROL HCL Inactive CYCLOBENZAPRINE HCL 10 MG TABS 1/2 - 1 tab by mouth three times daily if needed for spasms/pain CYCLOBENZAPRINE HCL 10 MG TABS 845717 CYCLOBENZAPRINE HCL Inactive ALBUTEROL SULFATE 0.083 % NEBU SOLN one vial per nebulizer every 4-6 hours as needed ALBUTEROL SULFATE 0.083 % NEBU SOLN 731243 ALBUTEROL SULFATE Inactive CEFTIN 500 MG TAB 1 twice a day CEFTIN 500 MG TAB 843186 CEFUROXIME AXETIL Inactive ZOFRAN ODT 4 MG TBDP 1 pill dissolved by mouth every 4 hours if needed for nausea ZOFRAN ODT 4 MG TBDP 088647 ONDANSETRON Inactive ADULT ASPIRIN EC LOW STRENGTH 81 MG TBEC Take 1 tablet by mouth daily 2014 ADULT ASPIRIN EC LOW STRENGTH 81 MG TBEC 090080 ASPIRIN Inactive CALCIUM 600+D PLUS MINERALS 600-400 [...] or an apple NIACIN 500 MG TABS 702729 NIACIN Inactive NIASPAN 500 MG ORAL CR-TABS 1 pill nightly x 1 week, then 2 pills nightly x 1 week, then 3 pills nightly x 1 week, then 4 pills nightly NIASPAN 500 MG ORAL CR-TABS NIACIN (ANTIHYPERLIPIDEMIC) Inactive OXYCODONE HCL 5 MG ORAL CAPS 1 TAB PO Q HS OXYCODONE HCL 5 MG ORAL CAPS 8555618 OXYCODONE HCL Inactive FLUTICASONE PROPIONATE 50 MCG/ACT SUSP 1 to 2 sprays each nostril daily 04/21 FLUTICASONE PROPIONATE 50 MCG/ACT SUSP 953463 FLUTICASONE PROPIONATE Inactive POLYTRIM 87863-5.1 UNIT/ML-% SOLN 1 gtt to affected eye q3h x 7 days POLYTRIM 65180-2.1 UNIT/ML-% SOLN 984039 POLYMYXIN B- TRIMETHOPRIM Inactive CHERATUSSIN AC 100-10 MG/5ML SYRP 1 tsp by mouth every 4 hours as needed for cough CHERATUSSIN AC 100-10 MG/5ML SYRP 872436 GUAIFENESIN-CODEINE Inactive LEVOTHYROXINE SODIUM 75 MCG TABS Take 1 tab daily LEVOTHYROXINE SODIUM 75 MCG TABS 921341 LEVOTHYROXINE SODIUM Inactive BACTRIM DS 800-160 MG TAB 1 tab by mouth twice daily BACTRIM DS 800-160 MG TAB 19820606 TRIMETHOPRIM-SULFAMETHOXAZOLE Inactive AZITHROMYCIN 250 MG TABS 2 po qd x 1 day, then 1 po qd x 4 days AZITHROMYCIN 250 MG TABS 4090251 AZITHROMYCIN Inactive CEFDINIR 300 MG CAPS by mouth twice a day CEFDINIR 300 MG CAPS 20020708 CEFDINIR Inactive AZITHROMYCIN 250 MG TABS 2 pills on day 1, then 1 pill daily x 4 days AZITHROMYCIN 250 MG TABS 0449952 AZITHROMYCIN Inactive DOXYCYCLINE HYCLATE 100 MG CAP 1 cap by mouth twice daily DOXYCYCLINE HYCLATE 100 MG CAP 2499086 DOXYCYCLINE HYCLATE Inactive FUROSEMIDE 20 MG TABS 1 pill by mouth daily, for edema FUROSEMIDE 20 MG TABS 940980 FUROSEMIDE Inactive AZITHROMYCIN 250 MG TABS 2 po qd x 1 day, then 1 po qd x 4 days AZITHROMYCIN 250 MG TABS 4768153 AZITHROMYCIN Inactive CEFTIN 500 MG TAB 1 twice a day CEFTIN 500 MG TAB 598297 CEFUROXIME AXETIL Inactive CEFDINIR 300 MG CAPS [...] Fluvirin, Fluarix, Agriflu(>=18 yo)) Fluzone (>3 yrs.) [NYB562] Influenza, seasonal, injectable influenza immunization (Flu Vax) has been administered Influenza - Unspecified Formulation [CVX88] influenza virus vaccine, unspecified formulation Seasonal influenza vaccine, injectable, containing preservative, for > 3 years old (Afluria, FluLaval, Fluzone, Fluvirin, Fluarix, Agriflu(>=18 yo)) Fluzone (>3 yrs.) [SVO905] Influenza, seasonal, injectable pneumococcal immunization administered Pneumovax 23 [CVX33] pneumococcal polysaccharide vaccine, 23 valent dT (Diphtheria and Tetanus) booster given given Td(adult) unspecified formulation Boostrix (Tetanus toxoid, reduced diphtheria toxoid and acellular pertussis vaccine, adsorbed), booster Boostrix [WSW416] tetanus toxoid, reduced diphtheria toxoid, and acellular [...] Panel - Chemistry sodium, serum 142 mmol/L 168-048 4301/06/30 potassium, serum 4.4 mmol/L 3.5-5.2 chloride, serum 108 mmol/L 98-107 carbon dioxide, venous blood 25.1 mmol/L 21.0-32.0 blood glucose 82 mg/dL 65-110 calcium, serum 9.1 mg/dL 8.5-10.1 urea nitrogen, blood 18 mg/dL 7-18 creatinine, serum 1.31 mg/dL 0.55-1.30 Lab Report: [facility] Advanced Lipid and Inlammation Panel /65770 - Chemistry cholesterol, serum 148 mg/dL 860-300 8102/09/02 HDL cholesterol, serum 55 mg/dL > OR=46 [...] (L) - Chemistry sodium, serum 145 mmol/L 082-793 1104/09/02 potassium, serum 4.6 mmol/L 3.5-5.2 chloride, serum [...] Rate - Chemistry sodium, serum 139 mmol/L 782-550 0916/03/24 carbon dioxide, venous blood 22.4 mmol/L 21.0-32.0 [...] ... - Chemistry sodium, serum 143 mmol/L 704-161 7178/05/02 carbon dioxide, venous blood 25.6 mmol/L 21.0-32.0 [...] Negative mg/dL Negative sodium, serum 142 mmol/L 237-714 7525/07/18 carbon dioxide, venous blood 27.8 mmol/L 21.0-32.0 [...] mg/dL Encounters Code Encounter Date Provider Facility CPT-25444 Level 3 Est. Patient 11:01:51 CDT Gab Padron MD [facility] CPT-29459 Level 3 Est. Patient 15:27:02 CDT Jared Og MD [facility] [place] CPT-58863 Level 4 Est. Patient 09:25:27 CDT Gab Padron MD [facility] CPT-53678 Level 3 Est. Patient 10:29:41 CDT Rodrigo Sarah APRN [facility]-04303 Level 4 Est. Patient 17:51:05 CDT Gab Padron MD [facility]-95772 Level 3 Est. Patient 14:18:08 CDT Gab Padron MD [facility]-71115 Level 4 Est. Patient 10:18:54 CDT Gab Padron MD [facility]-12903 Level 3 Est. Patient 11:30:07 CDT Rodrigo Sarah [facility][note 3]-27543 Level 4 Est. Patient 21:02:30 FUR FINISHER SEAMSTRESS Gab Padron MD [facility]-35512 Level 3 Est. Patient 11:02:19 FUR FINISHER SEAMSTRESS Gab Padron MD [facility] [place]-14276 Level 4 Est. Patient 22:24:31 FUR FINISHER SEAMSTRESS Gab Padron MD [facility] [place]-01705 Level 3 Est. Patient 18:33:46 FUR FINISHER SEAMSTRESS Gab Padron MD [facility] [place]-91792 Level 3 Est. Patient 16:19:11 CDT Yolande Lindsay MD [facility]-65796 Level 3 Est. Patient 18:59:14 CDT Yolande Lindsay MD [facility]-37643 Level 4 Est. Patient 21:29:26 CDT Yolande Lindsay MD [facility]-30731 Level 3 Est. Patient 07:37:45 CDT Yolande Lindsay MD [facility]13607 Level 3 Est. Patient 17:03:46 CDT Yolande Lindsay MD [facility]-68301 Level 4 Est. Patient 20:02:13 FUR FINISHER SEAMSTRESS Yolande Lindsay MD PhD [facility] CPT-11606 Level 3 Est. Patient 16:02:07 FUR FINISHER SEAMSTRESS Alexis Ordaz MD [facility] CPT-94240 Level 3 Est. Patient 12:41:24 FUR FINISHER SEAMSTRESS Yolande Lindsay MD [facility]-37807 Level 3 Est. Patient 15:41:20 FUR FINISHER SEAMSTRESS Yolande Lindsay MD [facility]-82413 Level 3 Est. Patient 13:20:02 FUR FINISHER SEAMSTRESS Yolande Lindsay MD [facility]-72957 Level 3 Est. Patient 15:00:38 CDT Jared Og MD [facility]-09121 Level 3 Est. Patient 10:22:32 CDT Yolande Lindsay MD [facility] CPT-98262 Level 3 Est. Patient 17:12:58 CDT Yolande iLndsay MD [facility] CPT-23890 Level 4 Est. Patient 13:30:58 CDT Yolande Lindsay MD [facility] CPT-15963 Level 4 New Patient 09:02:42 CDT Jared Og MD [facility]-85262 Level 3 Est. Patient 08:19:07 CDT Yolande Lindsay MD [facility] CPT-49301 Level 3 Est. Patient 12:00:13 FUR FINISHER SEAMSTRESS aGb Padron MD [facility] CPT-64951 Level 3 Est. Patient 16:15:23 FUR FINISHER SEAMSTRESS Yolande Lindsay MD [facility] CPT-42531 Level 2 Est. Patient 19:47:15 CDT Yolande Lindsay MD [facility]-72980 Level 3 Est. Patient 21:38:31 CDT Yolande Lindsay MD [facility]-43820 Level 3 Est. Patient 10:25:12 CDT Adiel PERAZA [facility] CPT-24575 Level 4 Est. Patient 10:51:58 CDT Yolande Lindsay MD [facility]-90280 Level 3 Est. Patient 14:04:55 FUR FINISHER SEAMSTRESS Rodrigo Sarah [facility] CPT-45954 Level 3 Est. Patient 10:46:35 FUR FINISHER SEAMSTRESS Rodrigo Sarah [facility] CPT-56800 Level 3 Est. Patient 14:24:37 FUR FINISHER SEAMSTRESS Yolande Lindsay MD [facility]-31361 Level 3 Est. Patient 17:41:58 FUR FINISHER SEAMSTRESS Yolande Lindsay MD [facility]-02717 Level 2 Est. Patient 22:01:41 FUR FINISHER SEAMSTRESS Rodrigo Sarah [facility]-21629 Level 2 Est. Patient 22:01:11 FUR FINISHER SEAMSTRESS Rodrigo aSrah [facility] CPT-21919 Level 3 Est. Patient 10:12:29 FUR FINISHER SEAMSTRESS Rodrigo Sarah [facility]-23448 Level 3 Est. Patient 11:05:44 CDT Alexis Ordaz MD [facility] [place]-38546 Level 3 Est. Patient 14:57:20 CDT Yolande Lindsay MD [facility]-50570 Level 3 Est. Patient 14:40:57 CDT Yolande Lindsay MD [facility]-95243 Level 3 Est. Patient 20:55:40 CDT Yolande Lindsay MD [facility]-64450 Level 3 Est. Patient 12:42:38 FUR FINISHER SEAMSTRESS Yolande Lindsay MD [facility]-34249 Level 3 Est. Patient 11:54:49 FUR FINISHER SEAMSTRESS Des Hines MD [facility] CPT-39242 Level 3 Est. Patient 17:06:38 CDT Dewayne PERAZA [facility] Procedures Code Procedure Name Date Entry Date Standard Description CPT-60097 Foot, left, comp min 3V - XRAY USE ONLY 09:24:54 CDT CPT-65026 Abd single AP View - XRAY USE ONLY 11:16:17 CDT CPT-76694 T spine AP/ Lat - XRAY USE ONLY 09:34:21 CDT CPT-03847 Chest 2V Frontal and Lat - XRAY USE ONLY 10:48:51 CDT CPT-03711 LS spine comp w obliq 13:28:00 FUR FINISHER SEAMSTRESS CPT-J1040 Depo Medrol 80 mg (Methyl Prednisolone Acetate) 10:51: 28 FUR FINISHER SEAMSTRESS CPT-J1100 Decadron 8mg (Dexamethasone) 10:51:28 FUR FINISHER SEAMSTRESS CPT-95445 Abx/Therapy Injection 10:51:28 FUR FINISHER SEAMSTRESS CPT-J1100 Decadron 8mg (Dexamethasone) 21:02:30 FUR FINISHER SEAMSTRESS CPT-J1040 Depo Medrol 80 mg (Methyl Prednisolone Acetate) 21:02: 30 FUR FINISHER SEAMSTRESS [id number] Event Monitor - MC Transmission 09:12:32 CDT 08/06 [id number] Event Monitor - MC review and interp 09:12:32 CDT [id number] Event Monitor - MC recording 09:12:32 CDT CPT-59399 EKG Trac and Interp 16:50:22 CDT CPT-J1030 Depo Medrol 40 mg (Methyl Prednisolone Acetate) 17:05: 54 CDT CPT-J1100 Decadron 4mg (Dexamethasone) 17:05:54 CDT CPT-60450 Abx/Therapy Injection 17:05:54 CDT CPT-J1100 Decadron 4mg (Dexamethasone) 16:55:28 CDT CPT-J1030 Depo Medrol 40 mg (Methyl Prednisolone Acetate) 16:55: 28 CDT CPT-49132 Ankle Complete - Min 3V 15:58:50 CDT CPT-57495 Knee 3V 15:58:50 CDT CPT-72168 Hip comp min 2V 15:58:50 CDT CPT-J2270 Morphine Sulfate 10 mg 14:25:44 FUR FINISHER SEAMSTRESS CPT-J2550 Phenergan 12.5 mg (Promethazine) 14:25:44 FUR FINISHER SEAMSTRESS CPT-09473 Abx/Therapy Injection 14:25:44 FUR FINISHER SEAMSTRESS CPT-J2550 Phenergan 12.5 mg (Promethazine) 14:08:03 FUR FINISHER SEAMSTRESS CPT-J2270 Morphine Sulfate 10 mg 14:08:03 FUR FINISHER SEAMSTRESS CPT-18129 Bladder Scan 15:00:38 CDT CPT-TCMM Transitional Care Mgmt-Moderate 09:52:22 CDT CPT-J1030 Depo Medrol 40 mg (Methyl Prednisolone Acetate) 10:55: 18 CDT CPT-J1100 Decadron 4mg (Dexamethasone) 10:55:18 CDT CPT-74680 Abx/Therapy Injection 10:55:18 CDT CPT-J1030 Depo Medrol 40 mg (Methyl Prednisolone Acetate) 10:22: 32 CDT CPT-J1100 Decadron 4mg (Dexamethasone) 10:22:32 CDT CPT-52853 Postop F/U Visit 14:37:13 CDT CPT-95452 Ankle Complete - Min 3V 17:11:58 CDT CPT-51230 Foot comp min 3V 17:11:58 CDT CPT-95046 Bladder Scan 09:56:58 CDT CPT-73298 Postop F/U Visit 09:56:58 CDT CPT-67972 Cystoscopy 09:02:42 CDT CPT-66088 Bladder Scan 09:02:42 CDT CPT-88216 Abd single AP View 16:00:35 CDT CPT-37757 Administration single or combination vaccine inc oral 10 :15:43 CDT CPT-24241 Influenza split virus > age 3 10:15:43 CDT CPT-75428 Nail Avulsion 09:24:57 CDT CPT-OV Office Visit 11:15:41 CDT CPT-95132 Abx/Therapy Injection 10:51:30 CDT CPT-J3301 Kenalog 40 mg (Triamcinolone Acetonide) 10:25:12 CDT CPT-J1100 Decadron 4mg (Dexamethasone) 10:25:12 CDT CPT-36195 Anoscopy diagnostic 10:36:12 CDT CPT-OV Office Visit 15:34:31 CDT CPT-84833 Abx/Therapy Injection 08:21:15 FUR FINISHER SEAMSTRESS CPT-J1885 Toradol 60 mg (Ketorolac) 10:46:35 FUR FINISHER SEAMSTRESS CPT-OV Office Visit 19:51:16 FUR FINISHER SEAMSTRESS CPT-99339 Spec Collection and Handling Fee 14:34:18 FUR FINISHER SEAMSTRESS CPT-PV Prev. Care Visit 14:19:18 FUR FINISHER SEAMSTRESS CPT-59573 Postop F/U Visit 14:47:51 FUR FINISHER SEAMSTRESS CPT-62956 Postop F/U Visit 15:15:14 FUR FINISHER SEAMSTRESS CPT-32308 Postop F/U Visit 14:41:43 CDT CPT-96614 Postop F/U Visit 15:47:46 CDT CPT-OV Office Visit 15:27:23 CDT CPT-OV Office Visit 17:20:34 CDT CPT-76991 Abx/Therapy Injection 15:05:57 CDT CPT-J1100 Decadron 8mg (Dexamethasone) 14:44:57 CDT CPT-J1040 Depo Medrol 80 mg (Methyl Prednisolone Acetate) 14:44: 57 CDT CPT-JTINJ Joint Injection 10:17:37 CDT CPT-97378 Administration 2+ single or combination vaccines inc oral 13:01:46 FUR FINISHER SEAMSTRESS CPT-40562 Administration single or combination vaccine inc oral 13 :01:46 FUR FINISHER SEAMSTRESS CPT-63078 Pneumovax 13:01:46 FUR FINISHER SEAMSTRESS CPT-75135 Influenza split virus > age 3 13:01:46 FUR FINISHER SEAMSTRESS CPT-95437 Administration single or combination vaccine inc oral 08 :56:49 CDT CPT-30023 Tdap 08:56:49 CDT
--- OUTSIDE RECORDS SUMMARY | 2017-03-22 01:51 | XMS REPORT ---
Author Author [facility] [employer] [facility] Medical Staff Organization [facility] [employer] [facility] Address [address] [id number] Phone [phone] Care Team Providers Care Route Delivery Driver Name Role Phone EVELYN SPEARS MD PP [phone] EVELYN SPEARS MD, PP [phone] Summary purpose TRANSITION OF CARE AUTO GENERATION [...] tests and/or laboratory data RESULTS Radiology Results [id number]:43:00 RETROGRADE PYELOGRAM PACs Image DATE OF EXAM: Oct 30 2015 RAD 1274-RETROGRADE PYELOGRAM : RADIOLOGY REPORT DATE OF SERVICE: 10/30/15 HISTORY: Hydrodilation LEFT RETROGRADE [id number] HOURS Films were obtained with the portable image intensifier. The left ureter was instrumented. Contrast was injected. The left ureter is normal in caliber. There are no filling defects. The left renal collecting system and calyces are normal. No masses are present. The ureter and collecting systems drain satisfactorily spontaneously. IMPRESSION: Normal left retrograde pyelogram. MD DEMI Hubbard/ia10/30/2015 09:10:10/30/2015 09:46:26 cc:Dr. Aniceto Og This document has been electronically Signed by: On: DATE OF EXAM: Oct 30 2015 RAD 1274-RETROGRADE PYELOGRAM : RADIOLOGY REPORT DATE OF SERVICE: 10/30/15 HISTORY: Hydrodilation LEFT RETROGRADE [id number] HOURS Films were obtained with the portable [...] on 2015-10-30 at 11:43:24. Previous status was WI. CYSTO LEFT RPG W HYDRO History of procedures No procedures recorded for this patient visit. Functional status Functional Status Finding Observation Time Hearing Prob Loc none 65-21-378225:55 Vision Problems yes 59-64-888110:55 Vision Correct Dev glasses 63-92-444287:55 Ambulation Asst Dev none 01-54-965391:55 Range of Motion full :15 Muscle Strength RUE 5 ROM full resist 88-55-977605:15 Muscle Strength RLE 5 ROM full resist 16-86-907493:15 Muscle Strength LUE 5 ROM full resist :15 Muscle Strength LLE 5 ROM full resist 19-07-244946:15 Transfers assist x 2 92-92-793761:15 Ambulation in room 19-89-769062:15 Balance unsteady 34-32-095236:15 Bathing Assistance none 13-96-658623:55 Eating Assistance none 09-26-732924:55 Dressing Assistance none 89-70-173778:55 Toileting Assistance none 97-10-472310:55 Transfer Assistance none 13-39-851612:55 Decline Slf Care/Mob no :55 Phys Cond Stable yes 82-75-050594:55 Nutrition normal 12-51-488900:15 Diet regular 97-31-035284:15 Oral Cavity moist and intact :15 Teeth dentures 59-48-674834:15 Dental Hygiene good 42-05-960069:15 Abdomen Appearance obese 38-86-309220:15 Abdomen soft 58-28-017598:15 Bowel Sounds present :15 NG Tube no :15 Feeding Tube none :15 Bawja no :15 Cont Bladder Irr no :15 Ostomy no :15 Stool normal :15 Urination normal 61-86-216423:15 Quality sym/unlabored :15 Cough absent 42-50-768722:15 Secretions no :15 Breath Sounds RUL clear :15 Breath Sounds RML clear :15 Breath Sounds RLL clear :15 Breath Sounds LESLIE clear :15 Breath Sounds LLL clear :15 Airway natural :15 Chest Tube no :15 Oxygen no 73-91-871895:00 C-PAP no 81-40-520759:15 BI-PAP no 96-36-967325:15 Temp >100.4 no :15 Temp <96.8 no :15 Chills with rigors no :15 HR > 90bpm no :15 Respirations > 20 no 25-83-313440:15 Systolic <90 no :15 headache stiff neck no 59-95-275806:15 WBC > 86607 no 48-48-025939:15 WBC < 4000 no 77-02-125409:15 IV Site Location L hand 28-14-652900:15 IV Type peripheral 65-87-177291:15 IV Site Information discontinued 28-94-470179:15 IV Site Start Attmpt 1 times 05-91-644013:15 IV Site Acosta 20 61-57-000894:15 IV Site Appearance WNL 71-45-481829:15 IV Site Color clear 81-74-715879:15 IV Site Patent yes 82-59-140972:15 Dressing Changed no (explain) 33-68-156907:15 Dressing Type occlusive 74-80-007553:15 Nursing Note Pt per w/c to [facility] accompanied by spouse. Pt in good condition with all belongings intact. 40-87-990949:30 Cognitive Status Finding Observation Time Learning Ability comprehends well 35-50-861729:15 Neurological no 27-60-494004:15 Psychological yes 32-25-542268:15 Physical no 63-58-512241:15 Hearing no 61-55-147940:15 Data Coder Operator Needed no 97-01-084682:15 Sign Language no 02-89-813594:15 Emotional no 68-25-938212:15 Vision yes 98-37-050597:15 Laguage no 97-81-229004:15 Financial no 08-75-344730:15 Vital signs Type Value Date Respiration Rate 18breaths per minute 13-71-909336:00 Pulse 62beats per minute 23-64-945769:00 Oxygen Saturation 97% 24-51-631234:00 BP Systolic 119mmHg 70-74-177689:00 BP Diastolic 58mmHg 06-00-098315:00 Temperature 97.8F 46-88-427913:02 Height 64inches 44-26-302027:22 Weight 242LB 89-06-354853:22 Social history Type Value Smoking Status FORMER [...]
--- OUTSIDE RECORDS SUMMARY | 2017-03-22 01:53 | XMS REPORT | Clinical Summary ---
Author Author Admin, MARGRET Rhoades [facility] Address Unknown Phone Unavailable Allergies, Adverse Reactions, Alerts Allergy Name Reaction Description Start Date Severity Status Provider CHLORHEXIDINE GLUCONATE tongue and gums swollen Critical Active Hoa Otto RMA NORFLEX Rash Critical Active Rodrigo Sarah OBSTETRICIAN GYNECOLOGIST TRAZODONE HCL sees things Critical Active Dewayne PERAZA PENICILLIN rash Critical Active Dewayen PERAZA Conditions or Problems Problem Name Problem [...] MG TBDP 1 q4h PRN nausea ONDANSETRON 95294184811 Active Yolande Lindsay MD PhD Active ADULT ASPIRIN EC LOW STRENGTH 81 MG TBEC Take 1 tablet by mouth daily 2014 ASPIRIN 87537735466 No Longer Active Yolande Lindsay MD PhD Active ZOFRAN ODT 4 MG TBDP 1 pill dissolved by mouth every 4 hours if needed for nausea ONDANSETRON 90057112228 No Longer Active Yolande Lindsay MD PhD Active CEFTIN 500 MG TAB 1 twice a day CEFUROXIME AXETIL 33102475979 No Longer Active Yolande Lindsay MD PhD Active ALBUTEROL SULFATE 0.083 % NEBU SOLN one vial per nebulizer every 4-6 hours as needed ALBUTEROL SULFATE 88265904329 No Longer Active Alexis Ordaz MD Active DOXYCYCLINE HYCLATE 100 MG CAP 1 cap by mouth twice daily DOXYCYCLINE HYCLATE 32616187754 No Longer Active Yolande Lindsay MD PhD Active CYCLOBENZAPRINE HCL 10 MG TABS 1/2 - 1 tab by mouth three times daily if needed for spasms/pain CYCLOBENZAPRINE HCL 23486871806 No Longer Active Yolande Lindsay MD PhD Active TRILEPTAL 600 MG TABS Take one 1/2 tablet in Am and 1 tablet at night OXCARBAZEPINE 01852997575 Active Yolande Lindsay MD PhD Active AZITHROMYCIN 250 MG TABS 2 pills on day 1, then 1 pill daily x 4 days AZITHROMYCIN 74383068618 No Longer Active Yolande iLndsay MD PhD Active XOPENEX 1.25 MG/3ML NEBU 1 neb every 4 hours if needed for cough/congestion LEVALBUTEROL HCL 34259946507 No Longer Active Yolande Lindsay MD PhD Active DOXYCYCLINE HYCLATE 100 MG TAB 1 tab twice a day for 14 days 2013 DOXYCYCLINE HYCLATE 48948711363 No Longer Active Yolande Lindsay MD PhD Active LEVOTHYROXINE SODIUM 75 MCG TABS Take 1 tab daily LEVOTHYROXINE SODIUM 47929080630 Active Yolande Lindsay MD PhD Active PREVACID 30 MG CPDR Take 1 tablet by mouth daily-PRN LANSOPRAZOLE 06354509406 No Longer Active Yolande Lindsay MD PhD Active PA VITAMIN D-3 2000 UNIT CAPS 1 CAP PO DAILY CHOLECALCIFEROL 11329269765 No Longer Active Yolande Lindsay MD PhD Active CEFDINIR 300 MG CAPS by mouth twice a day CEFDINIR 15919743506 No Longer Active Gab Padron MD Active TOPAMAX 50 MG TABS 1 PO twice daily TOPIRAMATE 11745007287 Active Yolande Lindsay MD PhD Active AZITHROMYCIN 250 MG TABS 2 po qd x 1 day, then 1 po qd x 4 days AZITHROMYCIN 93621258738 No Longer Active Yolande Lindsay MD PhD Active DICLOFENAC SODIUM 75 MG TBEC 1 tablet by q 12 hours PRN headaches DICLOFENAC SODIUM 69184119600 No Longer Active Yolande Lindsay MD PhD Active FLONASE 50 MCG/ACT SUSP 1 spray each nostril am and hs FLUTICASONE PROPIONATE 87620676419 No Longer Active Todd Callaway MD Active ANUSOL-HC 25 MG SUPPOSITORY 1 rectally twice a day as needed for hemorrhoids HYDROCORTISONE JAYDEN (RECTAL) 54652839076 No Longer Active Yolande Lindsay MD PhD Active ANUSOL-HC 25 MG SUPPOSITORY 1 suppository rectally each evening as needed for anal fissure HYDROCORTISONE JAYDEN (RECTAL) 33900012260 No Longer Active LONNIE Iglesias Active VALIUM 5 MG TAB 1 po 30 minutes prior to your MRI DIAZEPAM 78343461062 No Longer Active LONNIE Iglesias Active METHOCARBAMOL 750 MG TABS 1 PO QID PRN METHOCARBAMOL 95500806965 No Longer Active Daphne Wetzel OBSTETRICIAN GYNECOLOGIST Active NITROSTAT 0.4 MG SUBL as directed NITROGLYCERIN 17371580161 No Longer Active Rodrigo Sarah APRN Active ROBAXIN-750 750 MG TABS 2 four times a day for 3 days as needed for muscle spasm, then 1 four times a day as needed METHOCARBAMOL 52363628679 No Longer Active Rodrigo Sarah APRN Active HYDROCODONE-ACETAMINOPHEN 5-325 MG TABS 1 q 4-6 hrs prn HYDROCODONE-ACETAMINOPHEN 68888693107 No Longer Active Rodrigo Sarah APRN Active VERAPAMIL HCL CR 180 MG CR-TABS TAKE 1 TAB DAILY VERAPAMIL HCL 07002185467 No Longer Active Yolande Lindsay MD PhD Active BACTRIM DS 800-160 MG TAB 1 tab by mouth twice daily TRIMETHOPRIM-SULFAMETHOXAZOLE 14939237949 No Longer Active Yolande Lindsay MD PhD Active NEXIUM 40 MG PACK 1 by mouth daily ESOMEPRAZOLE MAGNESIUM 68739061961 No Longer Active Des Hines MD Active EPIPEN 2-CHARLETTE 0.3 MG/0.3ML OMARI as need for allergic reaction EPINEPHRINE 89730980488 Active Yolande Lindsay MD PhD Active LISINOPRIL 10 MG TABS 1 PO Q D FOR BP LISINOPRIL 75521717347 Active Yolande Lindsay MD PhD Active NEXIUM 40 MG CPDR 1 PO Q D DAY ESOMEPRAZOLE MAGNESIUM 60428395375 No Longer Active Sadia Perry RN Active NEXIUM 40 MG PACK 1 by mouth daily NEXIUM 40 MG PACK ESOMEPRAZOLE MAGNESIUM Inactive VERAPAMIL HCL CR 180 MG CR-TABS TAKE 1 TAB DAILY VERAPAMIL HCL CR 180 MG CR-TABS VERAPAMIL HCL Inactive HYDROCODONE-ACETAMINOPHEN 5-325 MG TABS 1 q 4-6 hrs prn HYDROCODONE-ACETAMINOPHEN 5-325 MG TABS 900586 HYDROCODONE-ACETAMINOPHEN Inactive ROBAXIN-750 750 MG TABS 2 four times a day for 3 days as needed for muscle spasm, then 1 four times a day as needed ROBAXIN-750 750 MG TABS 235077 METHOCARBAMOL Inactive NITROSTAT 0.4 MG SUBL as directed NITROSTAT 0.4 MG SUBL NITROGLYCERIN Inactive METHOCARBAMOL 750 MG TABS 1 PO QID PRN METHOCARBAMOL 750 MG TABS 268984 METHOCARBAMOL Inactive VALIUM 5 MG TAB 1 po 30 minutes prior to your MRI VALIUM 5 MG TAB 037923 DIAZEPAM Inactive ANUSOL-HC 25 MG SUPPOSITORY 1 suppository rectally each evening as needed for anal fissure ANUSOL-HC 25 MG SUPPOSITORY 1627550 HYDROCORTISONE JAYDEN (RECTAL) Inactive ANUSOL-HC 25 MG SUPPOSITORY 1 rectally twice a day as needed for hemorrhoids ANUSOL-HC 25 MG SUPPOSITORY 7501013 HYDROCORTISONE JAYDEN (RECTAL) Inactive FLONASE 50 MCG/ACT SUSP 1 spray each nostril am and hs FLONASE 50 MCG/ACT SUSP 691307 FLUTICASONE PROPIONATE Inactive DICLOFENAC SODIUM 75 MG TBEC 1 tablet by q 12 hours PRN headaches DICLOFENAC SODIUM 75 MG TBEC 121619 DICLOFENAC SODIUM Inactive PA VITAMIN D-3 2000 UNIT CAPS 1 CAP PO DAILY STU VITAMIN D-3 2000 UNIT CAPS CHOLECALCIFEROL Inactive PREVACID 30 MG CPDR Take 1 tablet by mouth daily-PRN PREVACID 30 MG CPDR 281451 LANSOPRAZOLE Inactive DOXYCYCLINE HYCLATE 100 MG TAB 1 tab twice a day for 14 days 2013 DOXYCYCLINE HYCLATE 100 MG TAB 609797 DOXYCYCLINE HYCLATE Inactive XOPENEX 1.25 MG/3ML NEBU 1 neb every 4 hours if needed for cough/congestion XOPENEX 1.25 MG/3ML NEBU LEVALBUTEROL HCL Inactive CYCLOBENZAPRINE HCL 10 MG TABS 1/2 - 1 tab by mouth three times daily if needed for spasms/pain CYCLOBENZAPRINE HCL 10 MG TABS 217518 CYCLOBENZAPRINE HCL Inactive ALBUTEROL SULFATE 0.083 % NEBU SOLN one vial per nebulizer every 4-6 hours as needed ALBUTEROL SULFATE 0.083 % NEBU SOLN 378081 ALBUTEROL SULFATE Inactive CEFTIN 500 MG TAB 1 twice a day CEFTIN 500 MG TAB 421188 CEFUROXIME AXETIL Inactive ZOFRAN ODT 4 MG TBDP 1 pill dissolved by mouth every 4 hours if needed for nausea ZOFRAN ODT 4 MG TBDP 896758 ONDANSETRON Inactive ADULT ASPIRIN EC LOW STRENGTH 81 MG TBEC Take 1 tablet by mouth daily 2014 ADULT ASPIRIN EC LOW STRENGTH 81 MG TBEC 789962 ASPIRIN Inactive BACTRIM DS 800-160 MG TAB 1 tab by mouth twice daily BACTRIM DS 800-160 MG TAB TRIMETHOPRIM-SULFAMETHOXAZOLE Inactive AZITHROMYCIN 250 MG TABS 2 po qd x 1 day, then 1 po qd x 4 days AZITHROMYCIN 250 MG TABS 5615452 AZITHROMYCIN Inactive CEFDINIR 300 MG CAPS by mouth twice a day CEFDINIR 300 MG CAPS 970462 CEFDINIR Inactive AZITHROMYCIN 250 MG TABS 2 pills on day 1, then 1 pill daily x 4 days AZITHROMYCIN 250 MG TABS 8943550 AZITHROMYCIN Inactive DOXYCYCLINE HYCLATE 100 MG CAP 1 cap by mouth twice daily DOXYCYCLINE HYCLATE 100 MG CAP 19890510 DOXYCYCLINE HYCLATE Inactive Immunizations Vaccine Administration Date Value Standard Description Seasonal influenza vaccine, injectable, containing preservative, for > 3 years old (Afluria, FluLaval, Fluzone, Fluvirin, Fluarix, Agriflu(>=18 yo)) Fluzone (>3 yrs.) [IJQ103] Influenza, seasonal, injectable influenza immunization (Flu Vax) has been administered Influenza - Unspecified Formulation [CVX88] influenza virus vaccine, unspecified formulation Seasonal influenza vaccine, injectable, containing preservative, for > 3 years old (Afluria, FluLaval, Fluzone, Fluvirin, Fluarix, Agriflu(>=18 yo)) Fluzone (>3 yrs.) [JCH751] Influenza, seasonal, injectable pneumococcal immunization administered Pneumovax 23 [CVX33] pneumococcal polysaccharide vaccine, 23 valent dT (Diphtheria and Tetanus) booster given given Td(adult) unspecified formulation Boostrix (Tetanus toxoid, reduced diphtheria toxoid and acellular pertussis vaccine, adsorbed), booster Boostrix [MOF385] tetanus toxoid, reduced diphtheria toxoid, and acellular [...] Panel - Chemistry sodium, serum 144 mmol/L 618-119 8614/01/21 potassium, serum 4.2 mmol/L 3.5-5.2 chloride, serum [...] Panel - Chemistry sodium, serum 144 mmol/L 355-857 4012/12/15 potassium, serum 5.4 mmol/L 3.5-5.2 chloride, serum [...] dipstick Negative Negative sodium, serum 143 mmol/L 769-756 3045/10/24 potassium, serum 3.9 mmol/L 3.5-5.2 chloride, serum [...] 51 mg/dL 30-200 cholesterol, serum 173 mg/dL 430-258 5964/04/28 HDL cholesterol, serum 63 mg/dL 32-96 LDL [...] 1.010 Encounters Code Encounter Date Provider Facility CPT-66761 Level 3 Est. Patient 17:03:46 CDT Yolande Lindsay MD PhD [facility] CPT-41450 Level 4 Est. Patient 20:02:13 PHYSICIAN SURGEON Yolande Lindsay MD PhD [facility] CPT-08810 Level 3 Est. Patient 16:02:07 PHYSICIAN SURGEON Alexis Ordaz MD [facility] CPT-70354 Level 3 Est. Patient 12:41:24 PHYSICIAN SURGEON Yolande Lindsay MD PhD [facility] CPT-85551 Level 3 Est. Patient 15:41:20 PHYSICIAN SURGEON Yolande Lindsay MD [facility] CPT-35368 Level 3 Est. Patient 13:20:02 PHYSICIAN SURGEON Yolande Lindsay MD [facility] CPT-88445 Level 3 Est. Patient 15:00:38 CDT Jared Og MD [facility] CPT-05022 Level 3 Est. Patient 10:22:32 CDT Yolande Lindsay MD [facility] CPT-39663 Level 3 Est. Patient 17:12:58 CDT Yolande Lindsay MD [facility] CPT-33818 Level 4 Est. Patient 13:30:58 CDT Yolande Lindsay MD [facility] CPT-82352 Level 4 New Patient 09:02:42 CDT Jared Og MD [facility] CPT-11948 Level 3 Est. Patient 08:19:07 CDT Yolande Lindsay MD [facility] CPT-46046 Level 3 Est. Patient 12:00:13 PHYSICIAN SURGEON Gab Padron MD [facility] CPT-45014 Level 3 Est. Patient 16:15:23 PHYSICIAN SURGEON Yolande Lindsay MD [facility] CPT-69570 Level 2 Est. Patient 19:47:15 CDT Yolande Lindsay MD [facility] CPT-53286 Level 3 Est. Patient 21:38:31 CDT Yolande Lindsay MD [facility] CPT-50740 Level 3 Est. Patient 10:25:12 CDT Adiel PERAZA [facility] CPT-93904 Level 4 Est. Patient 10:51:58 CDT Yolande Lindsay MD [facility] CPT-49618 Level 3 Est. Patient 14:04:55 PHYSICIAN SURGEON Rodrigo Sarah APRN [facility] CPT-94907 Level 3 Est. Patient 10:46:35 PHYSICIAN SURGEON Rodrigo Sarah [facility] CPT-77485 Level 3 Est. Patient 14:24:37 PHYSICIAN SURGEON Yolande Lindsay MD [facility] CPT-66335 Level 3 Est. Patient 17:41:58 PHYSICIAN SURGEON Yolande Lindsay MD [facility] CPT-08982 Level 2 Est. Patient 22:01:41 PHYSICIAN SURGEON Rodrigo Sarah [facility] CPT-23137 Level 2 Est. Patient 22:01:11 PHYSICIAN SURGEON Rodrigo Sarah [facility] CPT-46558 Level 3 Est. Patient 10:12:29 PHYSICIAN SURGEON Rodrigo Sarah [facility] CPT-10162 Level 3 Est. Patient 11:05:44 CDT Alexis Ordaz MD [facility] CPT-56464 Level 3 Est. Patient 14:57:20 CDT Yolande Lindsay MD [facility] CPT-74692 Level 3 Est. Patient 14:40:57 CDT Yolande Lindsay MD [facility] CPT-59476 Level 3 Est. Patient 20:55:40 CDT Yolande Lindsay MD [facility] CPT-17450 Level 3 Est. Patient 12:42:38 PHYSICIAN SURGEON Yolande Lindsay MD [facility]-76663 Level 3 Est. Patient 11:54:49 PHYSICIAN SURGEON Des Hines MD [facility]-45564 Level 3 Est. Patient 17:06:38 CDT Dewayne PERAZA [facility] Procedures Code Procedure Name Date Entry Date Standard Description CPT-73022 EKG Trac and Interp 16:50:22 CDT CPT-J1030 Depo Medrol 40 mg (Methyl Prednisolone Acetate) 17:05: 54 CDT CPT-J1100 Decadron 4mg (Dexamethasone) 17:05:54 CDT CPT-45731 Abx/Therapy Injection 17:05:54 CDT CPT-J1100 Decadron 4mg (Dexamethasone) 16:55:28 CDT CPT-J1030 Depo Medrol 40 mg (Methyl Prednisolone Acetate) 16:55: 28 CDT CPT-05027 Ankle Complete - Min 3V 15:58:50 CDT CPT-13500 Knee 3V 15:58:50 CDT CPT-62206 Hip comp min 2V 15:58:50 CDT CPT-J2270 Morphine Sulfate 10 mg 14:25:44 PHYSICIAN SURGEON CPT-J2550 Phenergan 12.5 mg (Promethazine) 14:25:44 PHYSICIAN SURGEON CPT-87656 Abx/Therapy Injection 14:25:44 PHYSICIAN SURGEON CPT-J2550 Phenergan 12.5 mg (Promethazine) 14:08:03 PHYSICIAN SURGEON CPT-J2270 Morphine Sulfate 10 mg 14:08:03 PHYSICIAN SURGEON CPT-40965 Bladder Scan 15:00:38 CDT CPT-TCMM Transitional Care Mgmt-Moderate 09:52:22 CDT CPT-J1030 Depo Medrol 40 mg (Methyl Prednisolone Acetate) 10:55: 18 CDT CPT-J1100 Decadron 4mg (Dexamethasone) 10:55:18 CDT CPT-86019 Abx/Therapy Injection 10:55:18 CDT CPT-J1030 Depo Medrol 40 mg (Methyl Prednisolone Acetate) 10:22: 32 CDT CPT-J1100 Decadron 4mg (Dexamethasone) 10:22:32 CDT CPT-60219 Postop F/U Visit 14:37:13 CDT CPT-58875 Ankle Complete - Min 3V 17:11:58 CDT CPT-54911 Foot comp min 3V 17:11:58 CDT CPT-07155 Bladder Scan 09:56:58 CDT CPT-63061 Postop F/U Visit 09:56:58 CDT CPT-43532 Cystoscopy 09:02:42 CDT CPT-57508 Bladder Scan 09:02:42 CDT CPT-97147 Abd single AP View 16:00:35 CDT CPT-88913 Administration single or combination vaccine inc oral 10 :15:43 CDT CPT-21469 Influenza split virus > age 3 10:15:43 CDT CPT-22768 Nail Avulsion 09:24:57 CDT CPT-OV Office Visit 11:15:41 CDT CPT-02681 Abx/Therapy Injection 10:51:30 CDT CPT-J3301 Kenalog 40 mg (Triamcinolone Acetonide) 10:25:12 CDT CPT-J1100 Decadron 4mg (Dexamethasone) 10:25:12 CDT CPT-12903 Anoscopy diagnostic 10:36:12 CDT CPT-OV Office Visit 15:34:31 CDT CPT-58655 Abx/Therapy Injection 08:21:15 PHYSICIAN SURGEON CPT-J1885 Toradol 60 mg (Ketorolac) 10:46:35 PHYSICIAN SURGEON CPT-OV Office Visit 19:51:16 PHYSICIAN SURGEON CPT-43896 Spec Collection and Handling Fee 14:34:18 PHYSICIAN SURGEON CPT-PV Prev. Care Visit 14:19:18 PHYSICIAN SURGEON CPT-32078 Postop F/U Visit 14:47:51 PHYSICIAN SURGEON CPT-87302 Postop F/U Visit 15:15:14 PHYSICIAN SURGEON CPT-01090 Postop F/U Visit 14:41:43 CDT CPT-09283 Postop F/U Visit 15:47:46 CDT CPT-OV Office Visit 15:27:23 CDT CPT-OV Office Visit 17:20:34 CDT CPT-21695 Abx/Therapy Injection 15:05:57 CDT CPT-J1100 Decadron 8mg (Dexamethasone) 14:44:57 CDT CPT-J1040 Depo Medrol 80 mg (Methyl Prednisolone Acetate) 14:44: 57 CDT CPT-JTINJ Joint Injection 10:17:37 CDT CPT-02178 Administration 2+ single or combination vaccines inc oral 13:01:46 PHYSICIAN SURGEON CPT-19331 Administration single or combination vaccine inc oral 13 :01:46 PHYSICIAN SURGEON CPT-55942 Pneumovax 13:01:46 PHYSICIAN SURGEON CPT-94671 Influenza split virus > age 3 13:01:46 PHYSICIAN SURGEON CPT-90114 Administration single or combination vaccine inc oral 08 :56:49 CDT CPT-59972 Tdap 08:56:49 CDT
--- OUTSIDE RECORDS SUMMARY | 2017-03-22 01:56 | XMS REPORT | Clinical Summary ---
Author Author Admin, MARGRET Organization [employer] Address Unknown Phone Unavailable Allergies, Adverse Reactions, Alerts Allergy Name Reaction Description Start Date Severity Status Provider VALENTIN Critical Active Rodrigo Montemayorl SENIOR J2EE DEVELOPER CHLORHEXIDINE GLUCONATE tongue and gums swollen Critical Active Hoa Kabaford RMA NORFLEX Rash Critical Active Rowenaina Frazell SENIOR J2EE DEVELOPER TRAZODONE HCL sees things Critical Active Dewayne PERAZA PENICILLIN rash Critical Active Dweayne PERAZA Conditions or Problems Problem Name Problem [...] dysfunction, unspecified Muscle spasm, back 724.8 Resolved Yloande Lindsay MD PhD Other symptoms referable to [...] infarction, hx of 412 Active Hoa Otto [facility] Old myocardial infarction Pelvic pain 789.09 Active Yolande Lindsay MD PhD Abdominal pain, other specified site; multiple sites Edema 782.3 Active Yolande Lindsay MD PhD Edema Rash 782.1 Active Yolande Lindsay MD PhD Rash and other nonspecific skin eruption Back pain, lumbar 724.2 Active Gab Padron MD Lumbago Cough 786.2 Active Jillina Tyrel SENIOR J2EE DEVELOPER Cough 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 Jillina Frazellilian ZAPATAN 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 Anemia 285.9 Active Gab Padron MD Anemia, unspecified Conjunctivitis 372.30 Active Jillnacho Sarah APRN Conjunctivitis, unspecified Sinusitis 473.9 Active Jillina Frazell SENIOR J2EE DEVELOPER Unspecified sinusitis (chronic) Nonspecific syndrome suggestive of viral illness 079.99 Active Jillina Siml SENIOR J2EE DEVELOPER Unspecified viral infection Laryngitis 464.00 Active Jillina Farshadzell SENIOR J2EE DEVELOPER Acute laryngitis without mention of obstruction [...] Abdominal pain, generalized 789.07 Active Silvestrellina Siml SENIOR J2EE DEVELOPER Abdominal pain, generalized Back pain, thoracic region, left 724.1 Active Jillina Farshadzell SENIOR J2EE DEVELOPER Pain in thoracic spine Abdominal pain, [...] every 6 hrs prn pain TRAMADOL HCL 92593924822 Active Gab Padron MD Active PREDNISONE 20 MG TAB 2 tabs daily for 3 days, 1 tab daily for 3 days, 1/2 tab daily for 2 days PREDNISONE 24546254708 No Longer Active Gab Padron MD Active ZOFRAN ODT 4 MG TBDP 1 po q6hr PRN Nausea ONDANSETRON 85754708566 Active Gab Padron MD Active IBUPROFEN 600 MG TAB 1 tablet by mouth every 6 hours for 7 days, then 1 tablet every 6 hours as needed. Take with food IBUPROFEN 44942441387 Active Jillina Frazell SENIOR J2EE DEVELOPER Active BACTRIM DS 800-160 MG TAB 1 tab by mouth twice daily TRIMETHOPRIM-SULFAMETHOXAZOLE 15769317882 No Longer Active Gab Padron MD Active ADVAIR DISKUS 250-50 MCG/DOSE AEPB 1 puff BID FLUTICASONE- SALMETEROL 39251885016 Active Jillnacho Sarah SENIOR J2EE DEVELOPER Active LEVOTHYROXINE SODIUM 75 MCG TABS Take 1 tab daily LEVOTHYROXINE SODIUM 81346240280 No Longer Active Mariana Cuadra [facility] Active SYNTHROID 88 MCG ORAL TABS Take one by mouth daily LEVOTHYROXINE SODIUM 93398075148 Active Gab Padron MD Active CHERATUSSIN AC 100-10 MG/5ML SYRP 1 tsp by mouth every 4 hours as needed for cough GUAIFENESIN-CODEINE 28184664091 No Longer Active Gab Padron MD Active POLYTRIM 79503-9.1 UNIT/ML-% SOLN 1 gtt to affected eye q3h x 7 days POLYMYXIN B-TRIMETHOPRIM 01691606982 No Longer Active Gab Padron MD Active FLUTICASONE PROPIONATE 50 MCG/ACT SUSP 1 to 2 sprays each nostril daily 04/21 FLUTICASONE PROPIONATE 53303992584 No Longer Active Gab Padron MD Active TRILEPTAL 600 MG TABS Take one 1 tablet in Am and 1 tablet at night OXCARBAZEPINE 97767316633 Active Gab Padron MD Active CEFDINIR 300 MG CAPS 1 po BID x 10 days CEFDINIR 01314154954 No Longer Active Rodrigo Sarah APRN Active CEFTIN 500 MG TAB 1 twice a day CEFUROXIME AXETIL 52961396318 No Longer Active aGb Padron MD Active AZITHROMYCIN 250 MG TABS 2 po qd x 1 day, then 1 po qd x 4 days AZITHROMYCIN 47689574163 No Longer Active Rodrigo Sarah APRN Active CLARITIN 10 MG TAB 1 tablet by mouth daily as needed for allergies LORATADINE 90529489376 Active Rodrigo Sarah APRN Active OXYCODONE HCL 5 MG ORAL CAPS 1 TAB PO Q HS OXYCODONE HCL 94478083941 No Longer Active Rodrigo Sarah APRN Active NIASPAN 500 MG ORAL CR-TABS 1 pill nightly x 1 week, then 2 pills nightly x 1 week, then 3 pills nightly x 1 week, then 4 pills nightly NIACIN (ANTIHYPERLIPIDEMIC) 66805959196 No Longer Active Rodrigo Sarah APRN Active NIACIN 500 MG TABS 1 pill by mouth nightly x 1 week, then 2 pills x 1 week, then 3 pills x 1 week, then 4 pills nightly - take after evening meal, with applesauce or an apple NIACIN 68156356199 No Longer Active Yolande Lindsay MD PhD Active FISH OIL 1000 MG CAPS 3 pills daily OMEGA-3 FATTY ACIDS 91554782759 Active Yolande Lindsay MD PhD Active TRIAMCINOLONE ACETONIDE 0.1 % CREA apply bid sparingly to rash TRIAMCINOLONE ACETONIDE 71768350050 Active Yolande Lindsay MD PhD Active FUROSEMIDE 20 MG TAB 1 tablet by mouth daily FUROSEMIDE 86169335305 Active Tisha Lambert APRN Active LISINOPRIL 20 MG ORAL TABS 1 tab by mouth daily LISINOPRIL 53290685938 Active Tisha Lambert APRN Active FUROSEMIDE 20 MG TABS 1 pill by mouth daily, for edema FUROSEMIDE 52574975935 No Longer Active Yolande Lindsay MD PhD Active ATORVASTATIN CALCIUM 10 MG TABS 1 pill by mouth daily, for cholesterol 09/06 ATORVASTATIN CALCIUM 57088753629 Active Gab Padron MD Active CALCIUM 600+D PLUS MINERALS 600-400 MG-UNIT ORAL CHEW 1 tab by mouth daily CALCIUM CARBONATE-VIT D-MIN 56391590097 No Longer Active Yolande Lindsay MD PhD Active CYCLOBENZAPRINE HCL 10 MG TABS 1 tablet by mouth three times daily as needed for muscle spasm/pain CYCLOBENZAPRINE HCL 02166944568 Active Yolande Lindsay MD PhD Active ONDANSETRON 4 MG TBDP 1 q4h PRN nausea ONDANSETRON 46769850719 Active Yolande Lindsay MD PhD Active ADULT ASPIRIN EC LOW STRENGTH 81 MG TBEC Take 1 tablet by mouth daily 2014 ASPIRIN 71517087054 No Longer Active Yolande Lnidsay MD PhD Active ZOFRAN ODT 4 MG TBDP 1 pill dissolved by mouth every 4 hours if needed for nausea ONDANSETRON 00879121291 No Longer Active Yloande Lindsay MD PhD Active CEFTIN 500 MG TAB 1 twice a day CEFUROXIME AXETIL 03306714814 No Longer Active Yolande Lindsay MD PhD Active ALBUTEROL SULFATE 0.083 % NEBU SOLN one vial per nebulizer every 4-6 hours as needed ALBUTEROL SULFATE 01524841179 No Longer Active Alexis Ordaz MD Active DOXYCYCLINE HYCLATE 100 MG CAP 1 cap by mouth twice daily DOXYCYCLINE HYCLATE 11230279502 No Longer Active Yolande Lindsay MD PhD Active CYCLOBENZAPRINE HCL 10 MG TABS 1/2 - 1 tab by mouth three times daily if needed for spasms/pain CYCLOBENZAPRINE HCL 26702819550 No Longer Active Yolande Lindsay MD PhD Active AZITHROMYCIN 250 MG TABS 2 pills on day 1, then 1 pill daily x 4 days AZITHROMYCIN 91129717657 No Longer Active Yolande Lindsay MD PhD Active XOPENEX 1.25 MG/3ML NEBU 1 neb every 4 hours if needed for cough/congestion LEVALBUTEROL HCL 53382746782 No Longer Active Yolande Lindsay MD PhD Active DOXYCYCLINE HYCLATE 100 MG TAB 1 tab twice a day for 14 days 2013 DOXYCYCLINE HYCLATE 60006861282 No Longer Active Yolande Lindsay MD PhD Active PREVACID 30 MG CPDR Take 1 tablet by mouth daily-PRN LANSOPRAZOLE 49333261173 No Longer Active Yolande Lindsay MD PhD Active PA VITAMIN D-3 2000 UNIT CAPS 1 CAP PO DAILY CHOLECALCIFEROL 63002045914 No Longer Active Yolande Lindsay MD PhD Active CEFDINIR 300 MG CAPS by mouth twice a day CEFDINIR 45588239452 No Longer Active Gab Padron MD Active TOPAMAX 50 MG TABS 1 PO twice daily TOPIRAMATE 34289404274 Active Yolande Lindsay MD PhD Active AZITHROMYCIN 250 MG TABS 2 po qd x 1 day, then 1 po qd x 4 days AZITHROMYCIN 38458599137 No Longer Active Yolande Lindsay MD PhD Active DICLOFENAC SODIUM 75 MG TBEC 1 tablet by q 12 hours PRN headaches DICLOFENAC SODIUM 05187327884 No Longer Active Yolande Lindsay MD PhD Active FLONASE 50 MCG/ACT SUSP 1 spray each nostril am and hs FLUTICASONE PROPIONATE 28122089388 No Longer Active Todd Callaway MD Active ANUSOL-HC 25 MG SUPPOSITORY 1 rectally twice a day as needed for hemorrhoids HYDROCORTISONE JAYDEN (RECTAL) 57310389280 No Longer Active Yolande Lindsay MD PhD Active ANUSOL-HC 25 MG SUPPOSITORY 1 suppository rectally each evening as needed for anal fissure HYDROCORTISONE JAYDEN (RECTAL) 43246117866 No Longer Active Bozena Coleman, RMA Active VALIUM 5 MG TAB 1 po 30 minutes prior to your MRI DIAZEPAM 49585524694 No Longer Active Bozena JaredEDELMIRAFeliciano Active METHOCARBAMOL 750 MG TABS 1 PO QID PRN METHOCARBAMOL 41890243848 No Longer Active Daphne Wetzel SENIOR J2EE DEVELOPER Active NITROSTAT 0.4 MG SUBL as directed NITROGLYCERIN 83542775959 No Longer Active Rodrigo Sarah SENIOR J2EE DEVELOPER Active ROBAXIN-750 750 MG TABS 2 four times a day for 3 days as needed for muscle spasm, then 1 four times a day as needed METHOCARBAMOL 93992454348 No Longer Active Rodrigo Sarah APRN Active HYDROCODONE-ACETAMINOPHEN 5-325 MG TABS 1 q 4-6 hrs prn HYDROCODONE-ACETAMINOPHEN 18470201537 No Longer Active Rodrigo Sarah APRN Active VERAPAMIL HCL CR 180 MG CR-TABS TAKE 1 TAB DAILY VERAPAMIL HCL 09622208234 No Longer Active Yolande Lindsay MD PhD Active BACTRIM DS 800-160 MG TAB 1 tab by mouth twice daily TRIMETHOPRIM-SULFAMETHOXAZOLE 19019935645 No Longer Active Yolande Lindsay MD PhD Active NEXIUM 40 MG PACK 1 by mouth daily ESOMEPRAZOLE MAGNESIUM 18029683701 No Longer Active Des Hines MD Active EPIPEN 2-CHARLETTE 0.3 MG/0.3ML OMARI as need for allergic reaction EPINEPHRINE 37115538925 Active Yolande Lindsay MD PhD Active NEXIUM 40 MG CPDR 1 PO Q D DAY ESOMEPRAZOLE MAGNESIUM 07496081945 No Longer Active Sadia Perry RN Active NEXIUM 40 MG PACK 1 by mouth daily NEXIUM 40 MG PACK ESOMEPRAZOLE MAGNESIUM Inactive VERAPAMIL HCL CR 180 MG CR-TABS TAKE 1 TAB DAILY VERAPAMIL HCL CR 180 MG CR-TABS VERAPAMIL HCL Inactive HYDROCODONE-ACETAMINOPHEN 5-325 MG TABS 1 q 4-6 hrs prn HYDROCODONE-ACETAMINOPHEN 5-325 MG TABS 575397 HYDROCODONE-ACETAMINOPHEN Inactive ROBAXIN-750 750 MG TABS 2 four times a day for 3 days as needed for muscle spasm, then 1 four times a day as needed ROBAXIN-750 750 MG TABS 487484 METHOCARBAMOL Inactive NITROSTAT 0.4 MG SUBL as directed NITROSTAT 0.4 MG SUBL 264917 NITROGLYCERIN Inactive METHOCARBAMOL 750 MG TABS 1 PO QID PRN METHOCARBAMOL 750 MG TABS 058743 METHOCARBAMOL Inactive VALIUM 5 MG TAB 1 po 30 minutes prior to your MRI VALIUM 5 MG TAB 148871 DIAZEPAM Inactive ANUSOL-HC 25 MG SUPPOSITORY 1 suppository rectally each evening as needed for anal fissure ANUSOL-HC 25 MG SUPPOSITORY 3749269 HYDROCORTISONE JAYDEN (RECTAL) Inactive ANUSOL-HC 25 MG SUPPOSITORY 1 rectally twice a day as needed for hemorrhoids ANUSOL-HC 25 MG SUPPOSITORY 1003033 HYDROCORTISONE JAYDEN (RECTAL) Inactive FLONASE 50 MCG/ACT SUSP 1 spray each nostril am and hs FLONASE 50 MCG/ACT SUSP FLUTICASONE PROPIONATE Inactive DICLOFENAC SODIUM 75 MG TBEC 1 tablet by q 12 hours PRN headaches DICLOFENAC SODIUM 75 MG TBEC 356831 DICLOFENAC SODIUM Inactive PA VITAMIN D-3 2000 UNIT CAPS 1 CAP PO DAILY PA VITAMIN D-3 2000 UNIT CAPS CHOLECALCIFEROL Inactive PREVACID 30 MG CPDR Take 1 tablet by mouth daily-PRN PREVACID 30 MG CPDR 690472 LANSOPRAZOLE Inactive DOXYCYCLINE HYCLATE 100 MG TAB 1 tab twice a day for 14 days 2013 DOXYCYCLINE HYCLATE 100 MG TAB 0746740 DOXYCYCLINE HYCLATE Inactive XOPENEX 1.25 MG/3ML NEBU 1 neb every 4 hours if needed for cough/congestion XOPENEX 1.25 MG/3ML NEBU 721252 LEVALBUTEROL HCL Inactive CYCLOBENZAPRINE HCL 10 MG TABS 1/2 - 1 tab by mouth three times daily if needed for spasms/pain CYCLOBENZAPRINE HCL 10 MG TABS 778905 CYCLOBENZAPRINE HCL Inactive ALBUTEROL SULFATE 0.083 % NEBU SOLN one vial per nebulizer every 4-6 hours as needed ALBUTEROL SULFATE 0.083 % NEBU SOLN 932450 ALBUTEROL SULFATE Inactive CEFTIN 500 MG TAB 1 twice a day CEFTIN 500 MG TAB 304111 CEFUROXIME AXETIL Inactive ZOFRAN ODT 4 MG TBDP 1 pill dissolved by mouth every 4 hours if needed for nausea ZOFRAN ODT 4 MG TBDP 614232 ONDANSETRON Inactive ADULT ASPIRIN EC LOW STRENGTH 81 MG TBEC Take 1 tablet by mouth daily 2014 ADULT ASPIRIN EC LOW STRENGTH 81 MG TBEC 163206 ASPIRIN Inactive CALCIUM 600+D PLUS MINERALS 600-400 [...] or an apple NIACIN 500 MG TABS 836306 NIACIN Inactive NIASPAN 500 MG ORAL CR-TABS 1 pill nightly x 1 week, then 2 pills nightly x 1 week, then 3 pills nightly x 1 week, then 4 pills nightly NIASPAN 500 MG ORAL CR-TABS NIACIN (ANTIHYPERLIPIDEMIC) Inactive OXYCODONE HCL 5 MG ORAL CAPS 1 TAB PO Q HS OXYCODONE HCL 5 MG ORAL CAPS 5772618 OXYCODONE HCL Inactive FLUTICASONE PROPIONATE 50 MCG/ACT SUSP 1 to 2 sprays each nostril daily 04/21 FLUTICASONE PROPIONATE 50 MCG/ACT SUSP 4554887 FLUTICASONE PROPIONATE Inactive POLYTRIM 74928-5.1 UNIT/ML-% SOLN 1 gtt to affected eye q3h x 7 days POLYTRIM 28842-8.1 UNIT/ML-% SOLN 844201 POLYMYXIN B- TRIMETHOPRIM Inactive CHERATUSSIN AC 100-10 MG/5ML SYRP 1 tsp by mouth every 4 hours as needed for cough CHERATUSSIN AC 100-10 MG/5ML SYRP 577131 GUAIFENESIN-CODEINE Inactive LEVOTHYROXINE SODIUM 75 MCG TABS Take 1 tab daily LEVOTHYROXINE SODIUM 75 MCG TABS 018518 LEVOTHYROXINE SODIUM Inactive BACTRIM DS 800-160 MG TAB 1 tab by mouth twice daily BACTRIM DS 800-160 MG TAB 743083 TRIMETHOPRIM-SULFAMETHOXAZOLE Inactive AZITHROMYCIN 250 MG TABS 2 po qd x 1 day, then 1 po qd x 4 days AZITHROMYCIN 250 MG TABS 5512282 AZITHROMYCIN Inactive CEFDINIR 300 MG CAPS by mouth twice a day CEFDINIR 300 MG CAPS 495797 CEFDINIR Inactive AZITHROMYCIN 250 MG TABS 2 pills on day 1, then 1 pill daily x 4 days AZITHROMYCIN 250 MG TABS 4758024 AZITHROMYCIN Inactive DOXYCYCLINE HYCLATE 100 MG CAP 1 cap by mouth twice daily DOXYCYCLINE HYCLATE 100 MG CAP 6893520 DOXYCYCLINE HYCLATE Inactive FUROSEMIDE 20 MG TABS 1 pill by mouth daily, for edema FUROSEMIDE 20 MG TABS 758128 FUROSEMIDE Inactive AZITHROMYCIN 250 MG TABS 2 po qd x 1 day, then 1 po qd x 4 days AZITHROMYCIN 250 MG TABS 6390041 AZITHROMYCIN Inactive CEFTIN 500 MG TAB 1 twice a day CEFTIN 500 MG TAB 951404 CEFUROXIME AXETIL Inactive CEFDINIR 300 MG CAPS 1 po BID x 10 days CEFDINIR 300 MG CAPS 760601 CEFDINIR Inactive BACTRIM DS 800-160 MG TAB 1 tab by mouth twice daily BACTRIM DS 800-160 MG TAB 628235 TRIMETHOPRIM-SULFAMETHOXAZOLE Inactive PREDNISONE 20 MG TAB 2 tabs daily for 3 days, 1 tab daily for 3 days, 1/2 tab daily for 2 days PREDNISONE 20 MG TAB 729260 PREDNISONE Inactive Immunizations Vaccine Administration Date Value Standard Description Seasonal influenza vaccine, injectable, containing preservative, for > 3 years old (Afluria, FluLaval, Fluzone, Fluvirin, Fluarix, Agriflu(>=18 yo)) Fluzone (>3 yrs.) [[id number]] Influenza, seasonal, injectable influenza immunization (Flu Vax) has been administered Influenza - Unspecified Formulation [CVX88] influenza virus vaccine, unspecified formulation Seasonal influenza vaccine, injectable, containing preservative, for > 3 years old (Afluria, FluLaval, Fluzone, Fluvirin, Fluarix, Agriflu(>=18 yo)) Fluzone (>3 yrs.) [KLH656] Influenza, seasonal, injectable pneumococcal immunization administered Pneumovax 23 [CVX33] pneumococcal polysaccharide vaccine, 23 valent dT (Diphtheria and Tetanus) booster given given Td(adult) unspecified formulation Boostrix (Tetanus toxoid, reduced diphtheria toxoid and acellular pertussis vaccine, adsorbed), booster Boostrix [GTK449] tetanus toxoid, reduced diphtheria toxoid, and acellular [...] Panel - Chemistry sodium, serum 142 mmol/L 465-686 9149/06/30 potassium, serum 4.4 mmol/L 3.5-5.2 chloride, serum [...] Rate - Chemistry sodium, serum 139 mmol/L 871-894 9661/03/24 carbon dioxide, venous blood 22.4 mmol/L 21.0-32.0 [...] ... - Chemistry sodium, serum 143 mmol/L 203-028 4232/05/02 carbon dioxide, venous blood 25.6 mmol/L 21.0-32.0 [...] PANEL - Chemistry cholesterol, serum 166 mg/dL 249-123 2603/12/06 triglyceride, serum, fasting 86 mg/dL 30-200 HDL [...] Negative mg/dL Negative sodium, serum 142 mmol/L 276-627 3373/07/18 carbon dioxide, venous blood 27.8 mmol/L 21.0-32.0 [...] negative Encounters Code Encounter Date Provider Facility CPT-79139 Level 3 Est. Patient 17:43:55 HOUSING ASSISTANT PROPERTY MANAGER Gab Padron MD [facility] CPT-38660 Level 3 Est. Patient 17:07:49 HOUSING ASSISTANT PROPERTY MANAGER Jared Og MD [facility] CPT-32307 Level 4 Est. Patient 19:55:18 HOUSING ASSISTANT PROPERTY MANAGER Jared Og MD [facility] CPT-53752 Level 3 Est. Patient 20:13:34 HOUSING ASSISTANT PROPERTY MANAGER Jared Og MD [facility] CPT-33883 Level 4 Est. Patient 16:31:27 CDT Gab Padron MD [facility] CPT-18485 Level 2 Est. Patient 12:23:38 CDT Jared Og MD [facility] CPT-80636 Level 3 Est. Patient 11:01:51 CDT Gab Padron MD [facility] CPT-48433 Level 3 Est. Patient 15:27:02 CDT Jared Og MD [facility] [place] CPT-94716 Level 4 Est. Patient 09:25:27 CDT Gab Padron MD [facility] CPT-19956 Level 3 Est. Patient 10:29:41 [facility] Level 4 Est. Patient 17:51:05 CDT Gab Padron MD [facility] CPT-36228 Level 3 Est. Patient 14:18:08 CDT Gab Padron MD [facility] CPT-97528 Level 4 Est. Patient 10:18:54 CDT Gab Padron MD [facility] CPT-58939 Level 3 Est. Patient 11:30:07 CDT Rodrigo Sarah [facility] CPT-19944 Level 4 Est. Patient 21:02:30 HOUSING ASSISTANT PROPERTY MANAGER Gab Padron MD [facility]-37130 Level 3 Est. Patient 11:02:19 HOUSING ASSISTANT PROPERTY MANAGER Gab Padron MD [facility]-39620 Level 4 Est. Patient 22:24:31 HOUSING ASSISTANT PROPERTY MANAGER Gab Padron MD [facility]-14773 Level 3 Est. Patient 18:33:46 HOUSING ASSISTANT PROPERTY MANAGER Gab Padron MD [facility]-47595 Level 3 Est. Patient 16:19:11 CDT Yolande Lindsay MD [facility]-24280 Level 3 Est. Patient 18:59:14 CDT Yolande Lindsay MD [facility]-16232 Level 4 Est. Patient 21:29:26 CDT Yolande Lindsay MD [facility]-27944 Level 3 Est. Patient 07:37:45 CDT Yolande Lindsay MD [facility]-23228 Level 3 Est. Patient 17:03:46 CDT Yolande Lindsay MD [facility]-13578 Level 4 Est. Patient 20:02:13 HOUSING ASSISTANT PROPERTY MANAGER Yolande Lindsay MD [facility]-14339 Level 3 Est. Patient 16:02:07 HOUSING ASSISTANT PROPERTY MANAGER Alexis Ordaz MD [facility]-61623 Level 3 Est. Patient 12:41:24 HOUSING ASSISTANT PROPERTY MANAGER Yolande Lindsay MD PhD [facility]-07031 Level 3 Est. Patient 15:41:20 HOUSING ASSISTANT PROPERTY MANAGER Yolande Lindsay MD [facility]-01268 Level 3 Est. Patient 13:20:02 HOUSING ASSISTANT PROPERTY MANAGER Yolande Lindsay MD [facility]-96812 Level 3 Est. Patient 15:00:38 CDT Jared Og MD [facility] CPT-59522 Level 3 Est. Patient 10:22:32 CDT Yolande Lindsay MD [facility] CPT-75216 Level 3 Est. Patient 17:12:58 CDT Yolande Lindsay MD [facility] CPT-74182 Level 4 Est. Patient 13:30:58 CDT Yolande Lindsay MD [facility] CPT-68737 Level 4 New Patient 09:02:42 CDT Jared Og MD [facility]-21765 Level 3 Est. Patient 08:19:07 CDT Yolande Lindsay MD [facility]-03936 Level 3 Est. Patient 12:00:13 HOUSING ASSISTANT PROPERTY MANAGER Gab Padron MD [facility] CPT-20416 Level 3 Est. Patient 16:15:23 HOUSING ASSISTANT PROPERTY MANAGER Yolande Lindsay MD [facility] CPT-44230 Level 2 Est. Patient 19:47:15 CDT Yolande Lindsay MD [facility] CPT-47019 Level 3 Est. Patient 21:38:31 CDT Yolande Lindsay MD [facility] CPT-93743 Level 3 Est. Patient 10:25:12 CDT Adiel PERAZA [facility] CPT-13326 Level 4 Est. Patient 10:51:58 CDT Yolande Lindsay MD [facility] CPT-50392 Level 3 Est. Patient 14:04:55 HOUSING ASSISTANT PROPERTY MANAGER Rodrigo Sarah [facility] CPT-95618 Level 3 Est. Patient 10:46:35 HOUSING ASSISTANT PROPERTY MANAGER Rodrigo Sarah [facility] CPT-30102 Level 3 Est. Patient 14:24:37 HOUSING ASSISTANT PROPERTY MANAGER Yolande Lindsay MD [facility] CPT-00824 Level 3 Est. Patient 17:41:58 HOUSING ASSISTANT PROPERTY MANAGER Yolande Lindsay MD [facility] CPT-02584 Level 2 Est. Patient 22:01:41 HOUSING ASSISTANT PROPERTY MANAGER Rodrigo Sarah [facility] CPT-91105 Level 2 Est. Patient 22:01:11 HOUSING ASSISTANT PROPERTY MANAGER Rodrigo Sarah [facility] CPT-73340 Level 3 Est. Patient 10:12:29 HOUSING ASSISTANT PROPERTY MANAGER Rodrigo Sarah [facility] CPT-18992 Level 3 Est. Patient 11:05:44 CDT Alexis Ordaz MD [facility] CPT-30072 Level 3 Est. Patient 14:57:20 CDT Yolande Lindsay MD [facility] CPT-84698 Level 3 Est. Patient 14:40:57 CDT Yolande Lindsay MD [facility] CPT-38167 Level 3 Est. Patient 20:55:40 CDT Yolande Lindsay MD [facility] CPT-71710 Level 3 Est. Patient 12:42:38 HOUSING ASSISTANT PROPERTY MANAGER Yolande Lindsay MD [facility] CPT-73620 Level 3 Est. Patient 11:54:49 HOUSING ASSISTANT PROPERTY MANAGER Des Hines MD [facility] CPT-62379 Level 3 Est. Patient 17:06:38 CDT Dewayne PERAZA [facility] Procedures Code Procedure Name Date Entry Date Standard Description CPT-41287 Hip, complete, 2-3 views - XRAY USE ONLY 17:19:04 HOUSING ASSISTANT PROPERTY MANAGER CPT-80306 Venipuncture Draw Fee 08:37:59 HOUSING ASSISTANT PROPERTY MANAGER CPT-99671 Liver Profile - LAB USE ONLY 08:37:59 HOUSING ASSISTANT PROPERTY MANAGER CPT-46570 Lipid - LAB USE ONLY 08:37:58 HOUSING ASSISTANT PROPERTY MANAGER CPT-77605 First Vx - Ix admin via ID IM or jet injects without counseling by physician 11:52:31 CDT CPT-59888 Fluzone Preservative Free Intramuscular Suspension 11:52 :31 CDT CPT-30267 Foot, left, comp min 3V - XRAY USE ONLY 09:24:54 CDT CPT-77778 Abd single AP View - XRAY USE ONLY 11:16:17 CDT CPT-17632 T spine AP/ Lat - XRAY USE ONLY 09:34:21 CDT CPT-43672 Chest 2V Frontal and Lat - XRAY USE ONLY 10:48:51 CDT CPT-01554 LS spine comp w obliq 13:28:00 HOUSING ASSISTANT PROPERTY MANAGER CPT-J1040 Depo Medrol 80 mg (Methyl Prednisolone Acetate) 10:51: 28 HOUSING ASSISTANT PROPERTY MANAGER CPT-J1100 Decadron 8mg (Dexamethasone) 10:51:28 HOUSING ASSISTANT PROPERTY MANAGER CPT-97976 Abx/Therapy Injection 10:51:28 HOUSING ASSISTANT PROPERTY MANAGER CPT-J1100 Decadron 8mg (Dexamethasone) 21:02:30 HOUSING ASSISTANT PROPERTY MANAGER CPT-J1040 Depo Medrol 80 mg (Methyl Prednisolone Acetate) 21:02: 30 HOUSING ASSISTANT PROPERTY MANAGER [id number] Event Monitor - MC Transmission 09:12:32 CDT 08/06 [id number] Event Monitor - MC review and interp 09:12:32 CDT [id number] Event Monitor - MC recording 09:12:32 CDT CPT-83547 EKG Trac and Interp 16:50:22 CDT CPT-J1030 Depo Medrol 40 mg (Methyl Prednisolone Acetate) 17:05: 54 CDT CPT-J1100 Decadron 4mg (Dexamethasone) 17:05:54 CDT CPT-23194 Abx/Therapy Injection 17:05:54 CDT CPT-J1100 Decadron 4mg (Dexamethasone) 16:55:28 CDT CPT-J1030 Depo Medrol 40 mg (Methyl Prednisolone Acetate) 16:55: 28 CDT CPT-82019 Ankle Complete - Min 3V 15:58:50 CDT CPT-55170 Knee 3V 15:58:50 CDT CPT-39442 Hip comp min 2V 15:58:50 CDT CPT-J2270 Morphine Sulfate 10 mg 14:25:44 HOUSING ASSISTANT PROPERTY MANAGER CPT-J2550 Phenergan 12.5 mg (Promethazine) 14:25:44 HOUSING ASSISTANT PROPERTY MANAGER CPT-80486 Abx/Therapy Injection 14:25:44 HOUSING ASSISTANT PROPERTY MANAGER CPT-J2550 Phenergan 12.5 mg (Promethazine) 14:08:03 HOUSING ASSISTANT PROPERTY MANAGER CPT-J2270 Morphine Sulfate 10 mg 14:08:03 HOUSING ASSISTANT PROPERTY MANAGER CPT-28705 Bladder Scan 15:00:38 CDT CPT-TCMM Transitional Care Mgmt-Moderate 09:52:22 CDT CPT-J1030 Depo Medrol 40 mg (Methyl Prednisolone Acetate) 10:55: 18 CDT CPT-J1100 Decadron 4mg (Dexamethasone) 10:55:18 CDT CPT-31901 Abx/Therapy Injection 10:55:18 CDT CPT-J1030 Depo Medrol 40 mg (Methyl Prednisolone Acetate) 10:22: 32 CDT CPT-J1100 Decadron 4mg (Dexamethasone) 10:22:32 CDT CPT-68211 Postop F/U Visit 14:37:13 CDT CPT-61966 Ankle Complete - Min 3V 17:11:58 CDT CPT-49388 Foot comp min 3V 17:11:58 CDT CPT-09435 Bladder Scan 09:56:58 CDT CPT-58462 Postop F/U Visit 09:56:58 CDT CPT-98306 Cystoscopy 09:02:42 CDT CPT-96738 Bladder Scan 09:02:42 CDT CPT-50605 Abd single AP View 16:00:35 CDT CPT-63267 Administration single or combination vaccine inc oral 10 :15:43 CDT CPT-93017 Influenza split virus > age 3 10:15:43 CDT CPT-91269 Nail Avulsion 09:24:57 CDT CPT-OV Office Visit 11:15:41 CDT CPT-26236 Abx/Therapy Injection 10:51:30 CDT CPT-J3301 Kenalog 40 mg (Triamcinolone Acetonide) 10:25:12 CDT CPT-J1100 Decadron 4mg (Dexamethasone) 10:25:12 CDT CPT-36409 Anoscopy diagnostic 10:36:12 CDT CPT-OV Office Visit 15:34:31 CDT CPT-21480 Abx/Therapy Injection 08:21:15 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 Care Visit 14:19:18 HOUSING ASSISTANT PROPERTY MANAGER CPT-21297 Postop F/U Visit 14:47:51 HOUSING ASSISTANT PROPERTY MANAGER CPT-18747 Postop F/U Visit 15:15:14 HOUSING ASSISTANT PROPERTY MANAGER CPT-46824 Postop F/U Visit 14:41:43 CDT CPT-92892 Postop F/U Visit 15:47:46 CDT CPT-OV Office Visit 15:27:23 CDT CPT-OV Office Visit 17:20:34 CDT CPT-01757 Abx/Therapy Injection 15:05:57 CDT CPT-J1100 Decadron 8mg (Dexamethasone) 14:44:57 CDT CPT-J1040 Depo Medrol 80 mg (Methyl Prednisolone Acetate) 14:44: 57 CDT CPT-JTINJ Joint Injection 10:17:37 CDT CPT-67232 Administration 2+ single or combination vaccines inc oral 13:01:46 HOUSING ASSISTANT PROPERTY MANAGER CPT-26678 Administration single or combination vaccine inc oral 13 :01:46 HOUSING ASSISTANT PROPERTY MANAGER CPT-69720 Pneumovax 13:01:46 HOUSING ASSISTANT PROPERTY MANAGER CPT-28711 Influenza split virus > age 3 13:01:46 HOUSING ASSISTANT PROPERTY MANAGER CPT-48486 Administration single or combination vaccine inc oral 08 :56:49 CDT CPT-44147 Tdap 08:56:49 CDT
--- OUTSIDE RECORDS SUMMARY | 2017-03-22 01:59 | XMS REPORT | Clinical Summary ---
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 Jillina Frazellilian ZAPATAN 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 Anemia 285.9 Active Gab Padron MD Anemia, unspecified Conjunctivitis 372.30 Active Jillnacho Sarah APRN Conjunctivitis, unspecified Sinusitis 473.9 Active Jillina Frazell GLOBAL PROGRAM DIRECTOR Unspecified sinusitis (chronic) Nonspecific syndrome suggestive of viral illness 079.99 Active Jillina Siml GLOBAL PROGRAM DIRECTOR Unspecified viral infection Laryngitis 464.00 Active Jillina Farshadzell GLOBAL PROGRAM DIRECTOR Acute laryngitis without mention of obstruction [...] Abdominal pain, generalized 789.07 Active Silvestrellina Siml GLOBAL PROGRAM DIRECTOR Abdominal pain, generalized Back pain, thoracic region, left 724.1 Active Jillina Farshadzell GLOBAL PROGRAM DIRECTOR Pain in thoracic spine Abdominal pain, [...] every 6 hrs prn pain TRAMADOL HCL 89562601102 Active Gab Padron MD Active PREDNISONE 20 MG TAB 2 tabs daily for 3 days, 1 tab daily for 3 days, 1/2 tab daily for 2 days PREDNISONE 66219334738 No Longer Active Gab Padron MD Active ZOFRAN ODT 4 MG TBDP 1 po q6hr PRN Nausea ONDANSETRON 05001149046 Active Gab Padron MD Active IBUPROFEN 600 MG TAB 1 tablet by mouth every 6 hours for 7 days, then 1 tablet every 6 hours as needed. Take with food IBUPROFEN 67439951856 Active Jillina Frazell GLOBAL PROGRAM DIRECTOR Active BACTRIM DS 800-160 MG TAB 1 tab by mouth twice daily TRIMETHOPRIM-SULFAMETHOXAZOLE 95966661515 No Longer Active Gab Padron MD Active ADVAIR DISKUS 250-50 MCG/DOSE AEPB 1 puff BID FLUTICASONE- SALMETEROL 87849815516 Active Jillnacho Sarah GLOBAL PROGRAM DIRECTOR Active LEVOTHYROXINE SODIUM 75 MCG TABS Take 1 tab daily LEVOTHYROXINE SODIUM 58467115601 No Longer Active Mariana Cuadra [facility] Active SYNTHROID 88 MCG ORAL TABS Take one by mouth daily LEVOTHYROXINE SODIUM 83663694163 Active Gab Padron MD Active CHERATUSSIN AC 100-10 MG/5ML SYRP 1 tsp by mouth every 4 hours as needed for cough GUAIFENESIN-CODEINE 78268780784 No Longer Active Gab Padron MD Active POLYTRIM 54483-5.1 UNIT/ML-% SOLN 1 gtt to affected eye q3h x 7 days POLYMYXIN B-TRIMETHOPRIM 89124856588 No Longer Active Gab Padron MD Active FLUTICASONE PROPIONATE 50 MCG/ACT SUSP 1 to 2 sprays each nostril daily 04/21 FLUTICASONE PROPIONATE 07673494521 No Longer Active Gab Padron MD Active TRILEPTAL 600 MG TABS Take one 1 tablet in Am and 1 tablet at night OXCARBAZEPINE 50256099898 Active Gab Padron MD Active CEFDINIR 300 MG CAPS 1 po BID x 10 days CEFDINIR 72112069453 No Longer Active Rodrigo Sarah APRN Active CEFTIN 500 MG TAB 1 twice a day CEFUROXIME AXETIL 69461666603 No Longer Active Gab Padron MD Active AZITHROMYCIN 250 MG TABS 2 po qd x 1 day, then 1 po qd x 4 days AZITHROMYCIN 08738203094 No Longer Active Rodrigo Sarah APRN Active CLARITIN 10 MG TAB 1 tablet by mouth daily as needed for allergies LORATADINE 87050498128 Active Rodrigo Sarah APRN Active OXYCODONE HCL 5 MG ORAL CAPS 1 TAB PO Q HS OXYCODONE HCL 81650858080 No Longer Active Rodrigo Sarah APRN Active NIASPAN 500 MG ORAL CR-TABS 1 pill nightly x 1 week, then 2 pills nightly x 1 week, then 3 pills nightly x 1 week, then 4 pills nightly NIACIN (ANTIHYPERLIPIDEMIC) 78289970134 No Longer Active Rodrigo Sarah APRN Active NIACIN 500 MG TABS 1 pill by mouth nightly x 1 week, then 2 pills x 1 week, then 3 pills x 1 week, then 4 pills nightly - take after evening meal, with applesauce or an apple NIACIN 03858039847 No Longer Active Yolande Lindsay MD PhD Active FISH OIL 1000 MG CAPS 3 pills daily OMEGA-3 FATTY ACIDS 09155841739 Active Yolande Lindsay MD PhD Active TRIAMCINOLONE ACETONIDE 0.1 % CREA apply bid sparingly to rash TRIAMCINOLONE ACETONIDE 71474990565 Active Yolande Lindsay MD PhD Active FUROSEMIDE 20 MG TAB 1 tablet by mouth daily FUROSEMIDE 87641799898 Active Tisha Lambert APRN Active LISINOPRIL 20 MG ORAL TABS 1 tab by mouth daily LISINOPRIL 18941126079 Active Tisha Lambert APRN Active FUROSEMIDE 20 MG TABS 1 pill by mouth daily, for edema FUROSEMIDE 32131807641 No Longer Active Yolande Lindsay MD PhD Active ATORVASTATIN CALCIUM 10 MG TABS 1 pill by mouth daily, for cholesterol 09/06 ATORVASTATIN CALCIUM 11951510559 Active Gab Padron MD Active CALCIUM 600+D PLUS MINERALS 600-400 MG-UNIT ORAL CHEW 1 tab by mouth daily CALCIUM CARBONATE-VIT D-MIN 71268474364 No Longer Active Yolande Lindsay MD PhD Active CYCLOBENZAPRINE HCL 10 MG TABS 1 tablet by mouth three times daily as needed for muscle spasm/pain CYCLOBENZAPRINE HCL 46656510524 Active Yolande Lindsay MD PhD Active ONDANSETRON 4 MG TBDP 1 q4h PRN nausea ONDANSETRON 32781285386 Active Yolande Lindsay MD PhD Active ADULT ASPIRIN EC LOW STRENGTH 81 MG TBEC Take 1 tablet by mouth daily 2014 ASPIRIN 17940252966 No Longer Active Yolande Lindsay MD PhD Active ZOFRAN ODT 4 MG TBDP 1 pill dissolved by mouth every 4 hours if needed for nausea ONDANSETRON 01093027701 No Longer Active Yolande Lindsay MD PhD Active CEFTIN 500 MG TAB 1 twice a day CEFUROXIME AXETIL 69364858001 No Longer Active Yolande Lindsay MD PhD Active ALBUTEROL SULFATE 0.083 % NEBU SOLN one vial per nebulizer every 4-6 hours as needed ALBUTEROL SULFATE 71743821954 No Longer Active Alexis Ordaz MD Active DOXYCYCLINE HYCLATE 100 MG CAP 1 cap by mouth twice daily DOXYCYCLINE HYCLATE 23601295264 No Longer Active Yolande Lindsay MD PhD Active CYCLOBENZAPRINE HCL 10 MG TABS 1/2 - 1 tab by mouth three times daily if needed for spasms/pain CYCLOBENZAPRINE HCL 51565623142 No Longer Active Yolande Lindsay MD PhD Active AZITHROMYCIN 250 MG TABS 2 pills on day 1, then 1 pill daily x 4 days AZITHROMYCIN 30561956123 No Longer Active Yolande Lindsay MD PhD Active XOPENEX 1.25 MG/3ML NEBU 1 neb every 4 hours if needed for cough/congestion LEVALBUTEROL HCL 77223227870 No Longer Active Yolande Lindsay MD PhD Active DOXYCYCLINE HYCLATE 100 MG TAB 1 tab twice a day for 14 days 2013 DOXYCYCLINE HYCLATE 82446186923 No Longer Active Yolande Lindsay MD PhD Active PREVACID 30 MG CPDR Take 1 tablet by mouth daily-PRN LANSOPRAZOLE 80859831524 No Longer Active Yolande Lindsay MD PhD Active PA VITAMIN D-3 2000 UNIT CAPS 1 CAP PO DAILY CHOLECALCIFEROL 86131261293 No Longer Active Yolande Lindsay MD PhD Active CEFDINIR 300 MG CAPS by mouth twice a day CEFDINIR 00642014682 No Longer Active Gab Padron MD Active TOPAMAX 50 MG TABS 1 PO twice daily TOPIRAMATE 61607479338 Active Yolande Lindsay MD PhD Active AZITHROMYCIN 250 MG TABS 2 po qd x 1 day, then 1 po qd x 4 days AZITHROMYCIN 36962708323 No Longer Active Yolande Lindsay MD PhD Active DICLOFENAC SODIUM 75 MG TBEC 1 tablet by q 12 hours PRN headaches DICLOFENAC SODIUM 99128188471 No Longer Active Yolande Lindsay MD PhD Active FLONASE 50 MCG/ACT SUSP 1 spray each nostril am and hs FLUTICASONE PROPIONATE 80176161016 No Longer Active Todd Callaway MD Active ANUSOL-HC 25 MG SUPPOSITORY 1 rectally twice a day as needed for hemorrhoids HYDROCORTISONE JAYDEN (RECTAL) 61635602210 No Longer Active Yolande Lindsay MD PhD Active ANUSOL-HC 25 MG SUPPOSITORY 1 suppository rectally each evening as needed for anal fissure HYDROCORTISONE JAYDEN (RECTAL) 16805292319 No Longer Active Bozena Coleman, RMA Active VALIUM 5 MG TAB 1 po 30 minutes prior to your MRI DIAZEPAM 48420986734 No Longer Active Bozena JaredEDELMIRAFeliciano Active METHOCARBAMOL 750 MG TABS 1 PO QID PRN METHOCARBAMOL 89562766672 No Longer Active Daphne Wetzel GLOBAL PROGRAM DIRECTOR Active NITROSTAT 0.4 MG SUBL as directed NITROGLYCERIN 30903338757 No Longer Active Rodrigo Sarah GLOBAL PROGRAM DIRECTOR Active ROBAXIN-750 750 MG TABS 2 four times a day for 3 days as needed for muscle spasm, then 1 four times a day as needed METHOCARBAMOL 86164024457 No Longer Active Rodrigo Sarah APRN Active HYDROCODONE-ACETAMINOPHEN 5-325 MG TABS 1 q 4-6 hrs prn HYDROCODONE-ACETAMINOPHEN 72707840708 No Longer Active Rodrigo Sarah APRN Active VERAPAMIL HCL CR 180 MG CR-TABS TAKE 1 TAB DAILY VERAPAMIL HCL 24981516404 No Longer Active Yolande Lindsay MD PhD Active BACTRIM DS 800-160 MG TAB 1 tab by mouth twice daily TRIMETHOPRIM-SULFAMETHOXAZOLE 15607812580 No Longer Active Yolande Lindsay MD PhD Active NEXIUM 40 MG PACK 1 by mouth daily ESOMEPRAZOLE MAGNESIUM 81933210014 No Longer Active Des Hines MD Active EPIPEN 2-CHARLETTE 0.3 MG/0.3ML OMARI as need for allergic reaction EPINEPHRINE 55871432325 Active Yolande Lindsay MD PhD Active NEXIUM 40 MG CPDR 1 PO Q D DAY ESOMEPRAZOLE MAGNESIUM 13623904680 No Longer Active Sadia Perry RN Active NEXIUM 40 MG PACK 1 by mouth daily NEXIUM 40 MG PACK ESOMEPRAZOLE MAGNESIUM Inactive VERAPAMIL HCL CR 180 MG CR-TABS TAKE 1 TAB DAILY VERAPAMIL HCL CR 180 MG CR-TABS VERAPAMIL HCL Inactive HYDROCODONE-ACETAMINOPHEN 5-325 MG TABS 1 q 4-6 hrs prn HYDROCODONE-ACETAMINOPHEN 5-325 MG TABS 042351 HYDROCODONE-ACETAMINOPHEN Inactive ROBAXIN-750 750 MG TABS 2 four times a day for 3 days as needed for muscle spasm, then 1 four times a day as needed ROBAXIN-750 750 MG TABS 403148 METHOCARBAMOL Inactive NITROSTAT 0.4 MG SUBL as directed NITROSTAT 0.4 MG SUBL 901876 NITROGLYCERIN Inactive METHOCARBAMOL 750 MG TABS 1 PO QID PRN METHOCARBAMOL 750 MG TABS 487643 METHOCARBAMOL Inactive VALIUM 5 MG TAB 1 po 30 minutes prior to your MRI VALIUM 5 MG TAB 389385 DIAZEPAM Inactive ANUSOL-HC 25 MG SUPPOSITORY 1 suppository rectally each evening as needed for anal fissure ANUSOL-HC 25 MG SUPPOSITORY 6823572 HYDROCORTISONE JAYDEN (RECTAL) Inactive ANUSOL-HC 25 MG SUPPOSITORY 1 rectally twice a day as needed for hemorrhoids ANUSOL-HC 25 MG SUPPOSITORY 5148092 HYDROCORTISONE JAYDEN (RECTAL) Inactive FLONASE 50 MCG/ACT SUSP 1 spray each nostril am and hs FLONASE 50 MCG/ACT SUSP FLUTICASONE PROPIONATE Inactive DICLOFENAC SODIUM 75 MG TBEC 1 tablet by q 12 hours PRN headaches DICLOFENAC SODIUM 75 MG TBEC 631717 DICLOFENAC SODIUM Inactive PA VITAMIN D-3 2000 UNIT CAPS 1 CAP PO DAILY PA VITAMIN D-3 2000 UNIT CAPS CHOLECALCIFEROL Inactive PREVACID 30 MG CPDR Take 1 tablet by mouth daily-PRN PREVACID 30 MG CPDR 555969 LANSOPRAZOLE Inactive DOXYCYCLINE HYCLATE 100 MG TAB 1 tab twice a day for 14 days 2013 DOXYCYCLINE HYCLATE 100 MG TAB 9574276 DOXYCYCLINE HYCLATE Inactive XOPENEX 1.25 MG/3ML NEBU 1 neb every 4 hours if needed for cough/congestion XOPENEX 1.25 MG/3ML NEBU 980402 LEVALBUTEROL HCL Inactive CYCLOBENZAPRINE HCL 10 MG TABS 1/2 - 1 tab by mouth three times daily if needed for spasms/pain CYCLOBENZAPRINE HCL 10 MG TABS 795161 CYCLOBENZAPRINE HCL Inactive ALBUTEROL SULFATE 0.083 % NEBU SOLN one vial per nebulizer every 4-6 hours as needed ALBUTEROL SULFATE 0.083 % NEBU SOLN 979037 ALBUTEROL SULFATE Inactive CEFTIN 500 MG TAB 1 twice a day CEFTIN 500 MG TAB 338256 CEFUROXIME AXETIL Inactive ZOFRAN ODT 4 MG TBDP 1 pill dissolved by mouth every 4 hours if needed for nausea ZOFRAN ODT 4 MG TBDP 270452 ONDANSETRON Inactive ADULT ASPIRIN EC LOW STRENGTH 81 MG TBEC Take 1 tablet by mouth daily 2014 ADULT ASPIRIN EC LOW STRENGTH 81 MG TBEC 106111 ASPIRIN Inactive CALCIUM 600+D PLUS MINERALS 600-400 [...] or an apple NIACIN 500 MG TABS 490819 NIACIN Inactive NIASPAN 500 MG ORAL CR-TABS 1 pill nightly x 1 week, then 2 pills nightly x 1 week, then 3 pills nightly x 1 week, then 4 pills nightly NIASPAN 500 MG ORAL CR-TABS NIACIN (ANTIHYPERLIPIDEMIC) Inactive OXYCODONE HCL 5 MG ORAL CAPS 1 TAB PO Q HS OXYCODONE HCL 5 MG ORAL CAPS 4470712 OXYCODONE HCL Inactive FLUTICASONE PROPIONATE 50 MCG/ACT SUSP 1 to 2 sprays each nostril daily 04/21 FLUTICASONE PROPIONATE 50 MCG/ACT SUSP 9196345 FLUTICASONE PROPIONATE Inactive POLYTRIM 14563-9.1 UNIT/ML-% SOLN 1 gtt to affected eye q3h x 7 days POLYTRIM 14289-5.1 UNIT/ML-% SOLN 851611 POLYMYXIN B- TRIMETHOPRIM Inactive CHERATUSSIN AC 100-10 MG/5ML SYRP 1 tsp by mouth every 4 hours as needed for cough CHERATUSSIN AC 100-10 MG/5ML SYRP 966458 GUAIFENESIN-CODEINE Inactive LEVOTHYROXINE SODIUM 75 MCG TABS Take 1 tab daily LEVOTHYROXINE SODIUM 75 MCG TABS 672781 LEVOTHYROXINE SODIUM Inactive BACTRIM DS 800-160 MG TAB 1 tab by mouth twice daily BACTRIM DS 800-160 MG TAB 669993 TRIMETHOPRIM-SULFAMETHOXAZOLE Inactive AZITHROMYCIN 250 MG TABS 2 po qd x 1 day, then 1 po qd x 4 days AZITHROMYCIN 250 MG TABS 3026708 AZITHROMYCIN Inactive CEFDINIR 300 MG CAPS by mouth twice a day CEFDINIR 300 MG CAPS 195809 CEFDINIR Inactive AZITHROMYCIN 250 MG TABS 2 pills on day 1, then 1 pill daily x 4 days AZITHROMYCIN 250 MG TABS 5769744 AZITHROMYCIN Inactive DOXYCYCLINE HYCLATE 100 MG CAP 1 cap by mouth twice daily DOXYCYCLINE HYCLATE 100 MG CAP 8020042 DOXYCYCLINE HYCLATE Inactive FUROSEMIDE 20 MG TABS 1 pill by mouth daily, for edema FUROSEMIDE 20 MG TABS 689508 FUROSEMIDE Inactive AZITHROMYCIN 250 MG TABS 2 po qd x 1 day, then 1 po qd x 4 days AZITHROMYCIN 250 MG TABS 8297326 AZITHROMYCIN Inactive CEFTIN 500 MG TAB 1 twice a day CEFTIN 500 MG TAB 740575 CEFUROXIME AXETIL Inactive CEFDINIR 300 MG CAPS 1 po BID x 10 days CEFDINIR 300 MG CAPS 860494 CEFDINIR Inactive BACTRIM DS 800-160 MG TAB 1 tab by mouth twice daily BACTRIM DS 800-160 MG TAB 705869 TRIMETHOPRIM-SULFAMETHOXAZOLE Inactive PREDNISONE 20 MG TAB 2 tabs daily for 3 days, 1 tab daily for 3 days, 1/2 tab daily for 2 days PREDNISONE 20 MG TAB 186778 PREDNISONE Inactive Immunizations Vaccine Administration Date Value Standard Description Seasonal influenza vaccine, injectable, containing preservative, for > 3 years old (Afluria, FluLaval, Fluzone, Fluvirin, Fluarix, Agriflu(>=18 yo)) Fluzone (>3 yrs.) [XAP848] Influenza, seasonal, injectable influenza immunization (Flu Vax) has been administered Influenza - Unspecified Formulation [CVX88] influenza virus vaccine, unspecified formulation pneumococcal immunization administered Pneumovax 23 [CVX33] pneumococcal polysaccharide vaccine, 23 valent Seasonal influenza vaccine, injectable, containing preservative, for > 3 years old (Afluria, FluLaval, Fluzone, Fluvirin, Fluarix, Agriflu(>=18 yo)) Fluzone (>3 yrs.) [KJX482] Influenza, seasonal, injectable dT (Diphtheria and Tetanus) booster given given Td(adult) unspecified formulation Boostrix (Tetanus toxoid, reduced diphtheria toxoid and acellular pertussis vaccine, adsorbed), booster Boostrix [[id number]] tetanus toxoid, reduced diphtheria toxoid, and acellular [...] Panel - Chemistry sodium, serum 142 mmol/L 439-888 2899/06/30 potassium, serum 4.4 mmol/L 3.5-5.2 chloride, serum [...] Rate - Chemistry sodium, serum 139 mmol/L 050-152 8812/03/24 carbon dioxide, venous blood 22.4 mmol/L 21.0-32.0 [...] ... - Chemistry sodium, serum 143 mmol/L 377-889 2951/05/02 carbon dioxide, venous blood 25.6 mmol/L 21.0-32.0 [...] PANEL - Chemistry cholesterol, serum 166 mg/dL 859-090 1864/12/06 triglyceride, serum, fasting 86 mg/dL 30-200 HDL [...] Negative mg/dL Negative sodium, serum 142 mmol/L 728-700 5073/07/18 carbon dioxide, venous blood 27.8 mmol/L 21.0-32.0 [...] negative Encounters Code Encounter Date Provider Facility CPT-71408 Level 3 Est. Patient 17:43:55 LPC Gab Padron MD [facility] CPT-71674 Level 3 Est. Patient 17:07:49 LPC Jared Og MD [facility] CPT-52992 Level 4 Est. Patient 19:55:18 LPC Jared Og MD [facility] CPT-33414 Level 3 Est. Patient 20:13:34 LPC Jared Og MD [facility] CPT-48922 Level 4 Est. Patient 16:31:27 CDT Gab Padron MD [facility] CPT-18539 Level 2 Est. Patient 12:23:38 CDT Jared Og MD [facility] CPT-92069 Level 3 Est. Patient 11:01:51 CDT Gab Padron MD [facility] CPT-18868 Level 3 Est. Patient 15:27:02 CDT Jared Og MD [facility] CPT-33875 Level 4 Est. Patient 09:25:27 CDT Gab Padron MD [facility] CPT-35699 Level 3 Est. Patient 10:29:41 CDT Rodrigo Sarah [facility] CPT-34218 Level 4 Est. Patient 17:51:05 CDT Gba Padron MD [facility] CPT-94154 Level 3 Est. Patient 14:18:08 CDT Gab Padron MD [facility] CPT-71244 Level 4 Est. Patient 10:18:54 CDT Gab Padron MD [facility] CPT-30875 Level 3 Est. Patient 11:30:07 CDT Rodrigo Sarah [facility] CPT-18684 Level 4 Est. Patient 21:02:30 LPC Gab Padron MD [facility] CPT-32367 Level 3 Est. Patient 11:02:19 LPC Gab Padron MD [facility] CPT-18815 Level 4 Est. Patient 22:24:31 LPC Gab Padron MD [facility] CPT-68534 Level 3 Est. Patient 18:33:46 LPC Gab Padron MD [facility]-97697 Level 3 Est. Patient 16:19:11 CDT Yolande Lindsay MD [facility]-65959 Level 3 Est. Patient 18:59:14 CDT Yolande Lindsay MD [facility]-32600 Level 4 Est. Patient 21:29:26 CDT Yolande Lindsay MD [facility]-99544 Level 3 Est. Patient 07:37:45 CDT Yolande Lindsay MD [facility]-44720 Level 3 Est. Patient 17:03:46 CDT Yolande Lindsay MD [facility]-11699 Level 4 Est. Patient 20:02:13 LPC Yolande Lindsay MD [facility]-45038 Level 3 Est. Patient 16:02:07 LPC Alexis Ordaz MD [facility]-68312 Level 3 Est. Patient 12:41:24 LPC Yolande Lindsay MD [facility]-09916 Level 3 Est. Patient 15:41:20 LPC Yolande Lindsay MD [facility]-03707 Level 3 Est. Patient 13:20:02 LPC Yolande Lindsay MD [facility]-52767 Level 3 Est. Patient 15:00:38 CDT Jared Og MD [facility]-83201 Level 3 Est. Patient 10:22:32 CDT Yolande Lindsay MD [facility]-07256 Level 3 Est. Patient 17:12:58 CDT Yolande Lindsay MD [facility]-24101 Level 4 Est. Patient 13:30:58 CDT Yolande Lindsay MD PhD [facility] CPT-15910 Level 4 New Patient 09:02:42 CDT Jared Og MD [facility]-60700 Level 3 Est. Patient 08:19:07 CDT Yolande Lindsay MD [facility]-70233 Level 3 Est. Patient 12:00:13 LPC Gab Padron MD [facility]-86013 Level 3 Est. Patient 16:15:23 LPC Yolande Lindsay MD [facility]-98859 Level 2 Est. Patient 19:47:15 CDT Yolande Lindsay MD [facility]-02943 Level 3 Est. Patient 21:38:31 CDT Yolande Lindsay MD [facility]-59037 Level 3 Est. Patient 10:25:12 CDT Adiel PERAZA [facility] CPT-32845 Level 4 Est. Patient 10:51:58 CDT Yolande Lindsay MD [facility]-05393 Level 3 Est. Patient 14:04:55 LPC Rodrigo Sarah [facility]-93881 Level 3 Est. Patient 10:46:35 LPC Rodrigo Sarah [facility]-70608 Level 3 Est. Patient 14:24:37 LPC Yolande Lindsay MD [facility]-15691 Level 3 Est. Patient 17:41:58 LPC Yolande Lindsay MD [facility]-45626 Level 2 Est. Patient 22:01:41 LPC Rodrigo Sarah [facility]-69046 Level 2 Est. Patient 22:01:11 LPC Rodrigo Sarah [facility] CPT-66711 Level 3 Est. Patient 10:12:29 LPC Rodrigo Sarah [facility] CPT-01210 Level 3 Est. Patient 11:05:44 CDT Alexis Ordaz MD [facility] CPT-14583 Level 3 Est. Patient 14:57:20 CDT Yolande Lindsay MD [facility] CPT-58034 Level 3 Est. Patient 14:40:57 CDT Yolande Lindsay MD [facility] CPT-98740 Level 3 Est. Patient 20:55:40 CDT Yolande Lindsay MD [facility] CPT-90500 Level 3 Est. Patient 12:42:38 LPC Yolande Lindsay MD [facility] CPT-74399 Level 3 Est. Patient 11:54:49 LPC Des Hines MD [facility] CPT-14955 Level 3 Est. Patient 17:06:38 CDT Dewayne PERAZA [facility] Procedures Code Procedure Name Date Entry Date Standard Description CPT-12670 Hip, complete, 2-3 views - XRAY USE ONLY 17:19:04 LPC CPT-72604 Venipuncture Draw Fee 08:37:59 LPC CPT-29700 Liver Profile - LAB USE ONLY 08:37:59 LPC CPT-56754 Lipid - LAB USE ONLY 08:37:58 LPC CPT-02661 First Vx - Ix admin via ID IM or jet injects without counseling by physician 11:52:31 CDT CPT-25448 Fluzone Preservative Free Intramuscular Suspension 11:52 :31 CDT CPT-80058 Foot, left, comp min 3V - XRAY USE ONLY 09:24:54 CDT CPT-67173 Abd single AP View - XRAY USE ONLY 11:16:17 CDT CPT-91218 T spine AP/ Lat - XRAY USE ONLY 09:34:21 CDT CPT-44916 Chest 2V Frontal and Lat - XRAY USE ONLY 10:48:51 CDT CPT-55721 LS spine comp w obliq 13:28:00 LPC CPT-J1040 Depo Medrol 80 mg (Methyl Prednisolone Acetate) 10:51: 28 LPC CPT-J1100 Decadron 8mg (Dexamethasone) 10:51:28 LPC CPT-56081 Abx/Therapy Injection 10:51:28 LPC CPT-J1100 Decadron 8mg (Dexamethasone) 21:02:30 LPC CPT-J1040 Depo Medrol 80 mg (Methyl Prednisolone Acetate) 21:02: 30 LPC [id number] Event Monitor - MC Transmission 09:12:32 CDT 08/06 [id number] Event Monitor - MC review and interp 09:12:32 CDT [id number] Event Monitor - MC recording 09:12:32 CDT CPT-02062 EKG Trac and Interp 16:50:22 CDT CPT-J1030 Depo Medrol 40 mg (Methyl Prednisolone Acetate) 17:05: 54 CDT CPT-J1100 Decadron 4mg (Dexamethasone) 17:05:54 CDT CPT-80550 Abx/Therapy Injection 17:05:54 CDT CPT-J1100 Decadron 4mg (Dexamethasone) 16:55:28 CDT CPT-J1030 Depo Medrol 40 mg (Methyl Prednisolone Acetate) 16:55: 28 CDT CPT-33724 Ankle Complete - Min 3V 15:58:50 CDT CPT-74417 Knee 3V 15:58:50 CDT CPT-34570 Hip comp min 2V 15:58:50 CDT CPT-J2270 Morphine Sulfate 10 mg 14:25:44 LPC CPT-J2550 Phenergan 12.5 mg (Promethazine) 14:25:44 LPC CPT-31272 Abx/Therapy Injection 14:25:44 LPC CPT-J2550 Phenergan 12.5 mg (Promethazine) 14:08:03 LPC CPT-J2270 Morphine Sulfate 10 mg 14:08:03 LPC CPT-71693 Bladder Scan 15:00:38 CDT CPT-TCMM Transitional Care Mgmt-Moderate 09:52:22 CDT CPT-J1030 Depo Medrol 40 mg (Methyl Prednisolone Acetate) 10:55: 18 CDT CPT-J1100 Decadron 4mg (Dexamethasone) 10:55:18 CDT CPT-54379 Abx/Therapy Injection 10:55:18 CDT CPT-J1030 Depo Medrol 40 mg (Methyl Prednisolone Acetate) 10:22: 32 CDT CPT-J1100 Decadron 4mg (Dexamethasone) 10:22:32 CDT CPT-86260 Postop F/U Visit 14:37:13 CDT CPT-84937 Ankle Complete - Min 3V 17:11:58 CDT CPT-75099 Foot comp min 3V 17:11:58 CDT CPT-60119 Bladder Scan 09:56:58 CDT CPT-84371 Postop F/U Visit 09:56:58 CDT CPT-77660 Cystoscopy 09:02:42 CDT CPT-80982 Bladder Scan 09:02:42 CDT CPT-40689 Abd single AP View 16:00:35 CDT CPT-77148 Administration single or combination vaccine inc oral 10 :15:43 CDT CPT-18727 Influenza split virus > age 3 10:15:43 CDT CPT-89886 Nail Avulsion 09:24:57 CDT CPT-OV Office Visit 11:15:41 CDT CPT-24595 Abx/Therapy Injection 10:51:30 CDT CPT-J3301 Kenalog 40 mg (Triamcinolone Acetonide) 10:25:12 CDT CPT-J1100 Decadron 4mg (Dexamethasone) 10:25:12 CDT CPT-54524 Anoscopy diagnostic 10:36:12 CDT CPT-OV Office Visit 15:34:31 CDT CPT-15199 Abx/Therapy Injection 08:21:15 LPC CPT-J1885 Toradol 60 mg (Ketorolac) 10:46:35 LPC CPT-OV Office Visit 19:51:16 LPC CPT-29673 Spec Collection and Handling Fee 14:34:18 LPC CPT-PV Prev. Care Visit 14:19:18 LPC CPT-32867 Postop F/U Visit 14:47:51 LPC CPT-93153 Postop F/U Visit 15:15:14 LPC CPT-70227 Postop F/U Visit 14:41:43 CDT CPT-44162 Postop F/U Visit 15:47:46 CDT CPT-OV Office Visit 15:27:23 CDT CPT-OV Office Visit 17:20:34 CDT CPT-92387 Abx/Therapy Injection 15:05:57 CDT CPT-J1100 Decadron 8mg (Dexamethasone) 14:44:57 CDT CPT-J1040 Depo Medrol 80 mg (Methyl Prednisolone Acetate) 14:44: 57 CDT CPT-JTINJ Joint Injection 10:17:37 CDT CPT-02281 Administration 2+ single or combination vaccines inc oral 13:01:46 LPC CPT-91540 Administration single or combination vaccine inc oral 13 :01:46 LPC CPT-46290 Pneumovax 13:01:46 LPC [id number] Influenza split virus > age 3 13:01:46 LPC CPT-10625 Administration single or combination vaccine inc oral 08 :56:49 CDT CPT-70358 Tdap 08:56:49 CDT
--- OUTSIDE RECORDS SUMMARY | 2017-03-22 02:02 | XMS REPORT | Clinical Summary ---
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 Jillina Frazellilian CAGER OPERATOR 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 Anemia 285.9 Active Gab Padron MD Anemia, unspecified Conjunctivitis 372.30 Active Jillina Tyrel CAGER OPERATOR Conjunctivitis, unspecified Sinusitis 473.9 Active Jillina Frazell CAGER OPERATOR Unspecified sinusitis (chronic) Nonspecific syndrome suggestive of viral illness 079.99 Active Rodrigo Sarah APRN Unspecified viral infection Laryngitis 464.00 Active Jillina Tyrel CAGER OPERATOR Acute laryngitis without mention of obstruction [...] and thigh Renal carcinoma 189.0 Active Erum [facility] Malignant neoplasm of kidney, except pelvis FOOT PAIN, RIGHT ICD-729.5 Inactive Yolande Lindsay MD PhD ANKLE PAIN, RIGHT ICD-719.47 Inactive Yolande Lindsay MD PhD EDEMA, LIMB ICD-782.3 Inactive Yolande Lindsay MD PhD ABDOMINAL PAIN ICD-789.00 Inactive Yolande iLndsay MD PhD PLANTAR FASCIITIS ICD-728.71 Inactive Yolande [...] every 6 hrs prn pain TRAMADOL HCL 44479459671 Active Gab Padron MD Active PREDNISONE 20 MG TAB 2 tabs daily for 3 days, 1 tab daily for 3 days, 1/2 tab daily for 2 days PREDNISONE 80871742576 No Longer Active Gab Padron MD Active ZOFRAN ODT 4 MG TBDP 1 po q6hr PRN Nausea ONDANSETRON 30116705868 Active Gab Padron MD Active IBUPROFEN 600 MG TAB 1 tablet by mouth every 6 hours for 7 days, then 1 tablet every 6 hours as needed. Take with food IBUPROFEN 35205136705 Active Jillina Frazell CAGER OPERATOR Active BACTRIM DS 800-160 MG TAB 1 tab by mouth twice daily TRIMETHOPRIM-SULFAMETHOXAZOLE 71623894712 No Longer Active Gab Padron MD Active ADVAIR DISKUS 250-50 MCG/DOSE AEPB 1 puff BID FLUTICASONE- SALMETEROL 00968640880 Active Rodrigo Sarah APRN Active LEVOTHYROXINE SODIUM 75 MCG TABS Take 1 tab daily LEVOTHYROXINE SODIUM 18440378940 No Longer Active Mariana Medellinelise [facility] Active SYNTHROID 88 MCG ORAL TABS Take one by mouth daily LEVOTHYROXINE SODIUM 01088066866 Active Gab Padron MD Active CHERATUSSIN AC 100-10 MG/5ML SYRP 1 tsp by mouth every 4 hours as needed for cough GUAIFENESIN-CODEINE 04909772509 No Longer Active Gab Padron MD Active POLYTRIM 96867-0.1 UNIT/ML-% SOLN 1 gtt to affected eye q3h x 7 days POLYMYXIN B-TRIMETHOPRIM 18395937346 No Longer Active Gab Padron MD Active FLUTICASONE PROPIONATE 50 MCG/ACT SUSP 1 to 2 sprays each nostril daily 04/21 FLUTICASONE PROPIONATE 31329214063 No Longer Active Gab Padron MD Active TRILEPTAL 600 MG TABS Take one 1 tablet in Am and 1 tablet at night OXCARBAZEPINE 72587869467 Active Gab Padron MD Active CEFDINIR 300 MG CAPS 1 po BID x 10 days CEFDINIR 70143577317 No Longer Active Rodrigo Sarah APRN Active CEFTIN 500 MG TAB 1 twice a day CEFUROXIME AXETIL 74404475093 No Longer Active Gab Padron MD Active AZITHROMYCIN 250 MG TABS 2 po qd x 1 day, then 1 po qd x 4 days AZITHROMYCIN 97592599715 No Longer Active Rodrigo Sarah APRN Active CLARITIN 10 MG TAB 1 tablet by mouth daily as needed for allergies LORATADINE 48511749253 Active Rodrigo Sarah APRN Active OXYCODONE HCL 5 MG ORAL CAPS 1 TAB PO Q HS OXYCODONE HCL 61161930652 No Longer Active Rodrigo Sarah APRN Active NIASPAN 500 MG ORAL CR-TABS 1 pill nightly x 1 week, then 2 pills nightly x 1 week, then 3 pills nightly x 1 week, then 4 pills nightly NIACIN (ANTIHYPERLIPIDEMIC) 64166980700 No Longer Active Rodrigo Sarah APRN Active NIACIN 500 MG TABS 1 pill by mouth nightly x 1 week, then 2 pills x 1 week, then 3 pills x 1 week, then 4 pills nightly - take after evening meal, with applesauce or an apple NIACIN 94012119879 No Longer Active Yolande Lindsay MD PhD Active FISH OIL 1000 MG CAPS 3 pills daily OMEGA-3 FATTY ACIDS 90033871094 Active Yolande Lindsay MD PhD Active TRIAMCINOLONE ACETONIDE 0.1 % CREA apply bid sparingly to rash TRIAMCINOLONE ACETONIDE 05022848412 Active Yolande Lindsay MD PhD Active FUROSEMIDE 20 MG TAB 1 tablet by mouth daily FUROSEMIDE 25737342421 Active Tisha Lambert APRN Active LISINOPRIL 20 MG ORAL TABS 1 tab by mouth daily LISINOPRIL 81263407810 Active Tisha Fausto CAGER OPERATOR Active FUROSEMIDE 20 MG TABS 1 pill by mouth daily, for edema FUROSEMIDE 05074886794 No Longer Active Yolande Lindsay MD PhD Active ATORVASTATIN CALCIUM 10 MG TABS 1 pill by mouth daily, for cholesterol 09/06 ATORVASTATIN CALCIUM 76372347755 Active Gab Padron MD Active CALCIUM 600+D PLUS MINERALS 600-400 MG-UNIT ORAL CHEW 1 tab by mouth daily CALCIUM CARBONATE-VIT D-MIN 19381617269 No Longer Active Yolande Lindsay MD PhD Active CYCLOBENZAPRINE HCL 10 MG TABS 1 tablet by mouth three times daily as needed for muscle spasm/pain CYCLOBENZAPRINE HCL 04276201848 Active Yolande Lindsay MD PhD Active ONDANSETRON 4 MG TBDP 1 q4h PRN nausea ONDANSETRON 09210607799 Active Yolande Lindsay MD PhD Active ADULT ASPIRIN EC LOW STRENGTH 81 MG TBEC Take 1 tablet by mouth daily 2014 ASPIRIN 32977538285 No Longer Active Yolande Lindsay MD PhD Active ZOFRAN ODT 4 MG TBDP 1 pill dissolved by mouth every 4 hours if needed for nausea ONDANSETRON 63314609963 No Longer Active Yolande Lindsay MD PhD Active CEFTIN 500 MG TAB 1 twice a day CEFUROXIME AXETIL 17864568043 No Longer Active Yolande Lindsay MD PhD Active ALBUTEROL SULFATE 0.083 % [facility] one vial per nebulizer every 4-6 hours as needed ALBUTEROL SULFATE 26552134514 No Longer Active Alexis Ordaz MD Active DOXYCYCLINE HYCLATE 100 MG CAP 1 cap by mouth twice daily DOXYCYCLINE HYCLATE 44476123616 No Longer Active Yolande Lindsay MD PhD Active CYCLOBENZAPRINE HCL 10 MG TABS 1/2 - 1 tab by mouth three times daily if needed for spasms/pain CYCLOBENZAPRINE HCL 04951588720 No Longer Active Yolande Lindsay MD PhD Active AZITHROMYCIN 250 MG TABS 2 pills on day 1, then 1 pill daily x 4 days AZITHROMYCIN 99275275554 No Longer Active Yolande Lindsay MD PhD Active XOPENEX 1.25 MG/3ML NEBU 1 neb every 4 hours if needed for cough/congestion LEVALBUTEROL HCL 87579133816 No Longer Active Yolande Lindsay MD PhD Active DOXYCYCLINE HYCLATE 100 MG TAB 1 tab twice a day for 14 days 2013 DOXYCYCLINE HYCLATE 85245337202 No Longer Active Yolande Lindsay MD PhD Active PREVACID 30 MG CPDR Take 1 tablet by mouth daily-PRN LANSOPRAZOLE 98079302645 No Longer Active Yolande Lindsay MD PhD Active PA VITAMIN D-3 2000 UNIT CAPS 1 CAP PO DAILY CHOLECALCIFEROL 53017865170 No Longer Active Yolande Lindsay MD PhD Active CEFDINIR 300 MG CAPS by mouth twice a day CEFDINIR 67294965704 No Longer Active Gab Padron MD Active TOPAMAX 50 MG TABS 1 PO twice daily TOPIRAMATE 89737721766 Active Yolande Lindsay MD PhD Active AZITHROMYCIN 250 MG TABS 2 po qd x 1 day, then 1 po qd x 4 days AZITHROMYCIN 85021426794 No Longer Active Yolande Lindsay MD PhD Active DICLOFENAC SODIUM 75 MG TBEC 1 tablet by q 12 hours PRN headaches DICLOFENAC SODIUM 83474427360 No Longer Active Yolande Lindsay MD PhD Active FLONASE 50 MCG/ACT SUSP 1 spray each nostril am and hs FLUTICASONE PROPIONATE 81428288044 No Longer Active Todd Callaway MD Active ANUSOL-HC 25 MG SUPPOSITORY 1 rectally twice a day as needed for hemorrhoids HYDROCORTISONE JAYDEN (RECTAL) 13833979184 No Longer Active Yolande Lindsay MD PhD Active ANUSOL-HC 25 MG SUPPOSITORY 1 suppository rectally each evening as needed for anal fissure HYDROCORTISONE JAYDEN (RECTAL) 05808257380 No Longer Active Bozena JaredEDELMIRAFeliciano Active VALIUM 5 MG TAB 1 po 30 minutes prior to your MRI DIAZEPAM 82675411081 No Longer Active LONNIE Iglesias Active METHOCARBAMOL 750 MG TABS 1 PO QID PRN METHOCARBAMOL 75803827786 No Longer Active Daphne Wetzel CAGER OPERATOR Active NITROSTAT 0.4 MG SUBL as directed NITROGLYCERIN 68628251110 No Longer Active Rodrigo Sarah APRN Active ROBAXIN-750 750 MG TABS 2 four times a day for 3 days as needed for muscle spasm, then 1 four times a day as needed METHOCARBAMOL 38162748015 No Longer Active Rodrigo Sarah APRN Active HYDROCODONE-ACETAMINOPHEN 5-325 MG TABS 1 q 4-6 hrs prn HYDROCODONE-ACETAMINOPHEN 91195783198 No Longer Active Rodrigo Sarah APRN Active VERAPAMIL HCL CR 180 MG CR-TABS TAKE 1 TAB DAILY VERAPAMIL HCL 89989346397 No Longer Active Yolande Lindsay MD PhD Active BACTRIM DS 800-160 MG TAB 1 tab by mouth twice daily TRIMETHOPRIM-SULFAMETHOXAZOLE 37786884862 No Longer Active Yolande Lindsay MD PhD Active NEXIUM 40 MG PACK 1 by mouth daily ESOMEPRAZOLE MAGNESIUM 41811426576 No Longer Active Des Hines MD Active EPIPEN 2-CHARLETTE 0.3 MG/0.3ML OMARI as need for allergic reaction EPINEPHRINE 38919217776 Active Yolande Lindsay MD PhD Active NEXIUM 40 MG CPDR 1 PO Q D DAY ESOMEPRAZOLE MAGNESIUM 18246550230 No Longer Active Sadia Perry RN Active NEXIUM 40 MG PACK 1 by mouth daily NEXIUM 40 MG PACK ESOMEPRAZOLE MAGNESIUM Inactive VERAPAMIL HCL CR 180 MG CR-TABS TAKE 1 TAB DAILY VERAPAMIL HCL CR 180 MG CR-TABS VERAPAMIL HCL Inactive HYDROCODONE-ACETAMINOPHEN 5-325 MG TABS 1 q 4-6 hrs prn HYDROCODONE-ACETAMINOPHEN 5-325 MG TABS 529386 HYDROCODONE-ACETAMINOPHEN Inactive ROBAXIN-750 750 MG TABS 2 four times a day for 3 days as needed for muscle spasm, then 1 four times a day as needed ROBAXIN-750 750 MG TABS 218276 METHOCARBAMOL Inactive NITROSTAT 0.4 MG SUBL as directed NITROSTAT 0.4 MG SUBL 027623 NITROGLYCERIN Inactive METHOCARBAMOL 750 MG TABS 1 PO QID PRN METHOCARBAMOL 750 MG TABS 084759 METHOCARBAMOL Inactive VALIUM 5 MG TAB 1 po 30 minutes prior to your MRI VALIUM 5 MG TAB 949666 DIAZEPAM Inactive ANUSOL-HC 25 MG SUPPOSITORY 1 suppository rectally each evening as needed for anal fissure ANUSOL-HC 25 MG SUPPOSITORY 9237337 HYDROCORTISONE JAYDEN (RECTAL) Inactive ANUSOL-HC 25 MG SUPPOSITORY 1 rectally twice a day as needed for hemorrhoids ANUSOL-HC 25 MG SUPPOSITORY 4462845 HYDROCORTISONE JAYDEN (RECTAL) Inactive FLONASE 50 MCG/ACT SUSP 1 spray each nostril am and hs FLONASE 50 MCG/ACT SUSP 0384555 FLUTICASONE PROPIONATE Inactive DICLOFENAC SODIUM 75 MG TBEC 1 tablet by q 12 hours PRN headaches DICLOFENAC SODIUM 75 MG TBEC 166450 DICLOFENAC SODIUM Inactive PA VITAMIN D-3 2000 UNIT CAPS 1 CAP PO DAILY PA VITAMIN D-3 2000 UNIT CAPS CHOLECALCIFEROL Inactive PREVACID 30 MG CPDR Take 1 tablet by mouth daily-PRN PREVACID 30 MG CPDR 380700 LANSOPRAZOLE Inactive DOXYCYCLINE HYCLATE 100 MG TAB 1 tab twice a day for 14 days 2013 DOXYCYCLINE HYCLATE 100 MG TAB 5372358 DOXYCYCLINE HYCLATE Inactive XOPENEX 1.25 MG/3ML NEBU 1 neb every 4 hours if needed for cough/congestion XOPENEX 1.25 MG/3ML NEBU 062512 LEVALBUTEROL HCL Inactive CYCLOBENZAPRINE HCL 10 MG TABS 1/2 - 1 tab by mouth three times daily if needed for spasms/pain CYCLOBENZAPRINE HCL 10 MG TABS 110216 CYCLOBENZAPRINE HCL Inactive ALBUTEROL SULFATE 0.083 % NEBU SOLN one vial per nebulizer every 4-6 hours as needed ALBUTEROL SULFATE 0.083 % NEBU SOLN 956602 ALBUTEROL SULFATE Inactive CEFTIN 500 MG TAB 1 twice a day CEFTIN 500 MG TAB 267117 CEFUROXIME AXETIL Inactive ZOFRAN ODT 4 MG TBDP 1 pill dissolved by mouth every 4 hours if needed for nausea ZOFRAN ODT 4 MG TBDP 033789 ONDANSETRON Inactive ADULT ASPIRIN EC LOW STRENGTH 81 MG TBEC Take 1 tablet by mouth daily 2014 ADULT ASPIRIN EC LOW STRENGTH 81 MG TBEC 649950 ASPIRIN Inactive CALCIUM 600+D PLUS MINERALS 600-400 [...] or an apple NIACIN 500 MG TABS 733737 NIACIN Inactive NIASPAN 500 MG ORAL CR-TABS 1 pill nightly x 1 week, then 2 pills nightly x 1 week, then 3 pills nightly x 1 week, then 4 pills nightly NIASPAN 500 MG ORAL CR-TABS NIACIN (ANTIHYPERLIPIDEMIC) Inactive OXYCODONE HCL 5 MG ORAL CAPS 1 TAB PO Q HS OXYCODONE HCL 5 MG ORAL CAPS 3318294 OXYCODONE HCL Inactive FLUTICASONE PROPIONATE 50 MCG/ACT SUSP 1 to 2 sprays each nostril daily 04/21 FLUTICASONE PROPIONATE 50 MCG/ACT SUSP 9103963 FLUTICASONE PROPIONATE Inactive POLYTRIM 49206-2.1 UNIT/ML-% SOLN 1 gtt to affected eye q3h x 7 days POLYTRIM 31808-9.1 UNIT/ML-% SOLN 710621 POLYMYXIN B- TRIMETHOPRIM Inactive CHERATUSSIN AC 100-10 MG/5ML SYRP 1 tsp by mouth every 4 hours as needed for cough CHERATUSSIN AC 100-10 MG/5ML SYRP 316684 GUAIFENESIN-CODEINE Inactive LEVOTHYROXINE SODIUM 75 MCG TABS Take 1 tab daily LEVOTHYROXINE SODIUM 75 MCG TABS 025960 LEVOTHYROXINE SODIUM Inactive BACTRIM DS 800-160 MG TAB 1 tab by mouth twice daily BACTRIM DS 800-160 MG TAB 319323 TRIMETHOPRIM-SULFAMETHOXAZOLE Inactive AZITHROMYCIN 250 MG TABS 2 po qd x 1 day, then 1 po qd x 4 days AZITHROMYCIN 250 MG TABS 5788348 AZITHROMYCIN Inactive CEFDINIR 300 MG CAPS by mouth twice a day CEFDINIR 300 MG CAPS 952689 CEFDINIR Inactive AZITHROMYCIN 250 MG TABS 2 pills on day 1, then 1 pill daily x 4 days AZITHROMYCIN 250 MG TABS 1929795 AZITHROMYCIN Inactive DOXYCYCLINE HYCLATE 100 MG CAP 1 cap by mouth twice daily DOXYCYCLINE HYCLATE 100 MG CAP 0999346 DOXYCYCLINE HYCLATE Inactive FUROSEMIDE 20 MG TABS 1 pill by mouth daily, for edema FUROSEMIDE 20 MG TABS 165048 FUROSEMIDE Inactive AZITHROMYCIN 250 MG TABS 2 po qd x 1 day, then 1 po qd x 4 days AZITHROMYCIN 250 MG TABS 6377515 AZITHROMYCIN Inactive CEFTIN 500 MG TAB 1 twice a day CEFTIN 500 MG TAB 970345 CEFUROXIME AXETIL Inactive CEFDINIR 300 MG CAPS 1 po BID x 10 days CEFDINIR 300 MG CAPS 568869 CEFDINIR Inactive BACTRIM DS 800-160 MG TAB 1 tab by mouth twice daily BACTRIM DS 800-160 MG TAB 323582 TRIMETHOPRIM-SULFAMETHOXAZOLE Inactive PREDNISONE 20 MG TAB 2 tabs daily for 3 days, 1 tab daily for 3 days, 1/2 tab daily for 2 days PREDNISONE 20 MG TAB 682855 PREDNISONE Inactive Immunizations Vaccine Administration Date Value Standard Description Seasonal influenza vaccine, injectable, containing preservative, for > 3 years old (Afluria, FluLaval, Fluzone, Fluvirin, Fluarix, Agriflu(>=18 yo)) Fluzone (>3 yrs.) [ONX300] Influenza, seasonal, injectable influenza immunization (Flu Vax) has been administered Influenza - Unspecified Formulation [CVX88] influenza virus vaccine, unspecified formulation pneumococcal immunization administered Pneumovax 23 [CVX33] pneumococcal polysaccharide vaccine, 23 valent Seasonal influenza vaccine, injectable, containing preservative, for > 3 years old (Afluria, FluLaval, Fluzone, Fluvirin, Fluarix, Agriflu(>=18 yo)) Fluzone (>3 yrs.) [NNM800] Influenza, seasonal, injectable dT (Diphtheria and Tetanus) booster given given Td(adult) unspecified formulation Boostrix (Tetanus toxoid, reduced diphtheria toxoid and acellular pertussis vaccine, adsorbed), booster Boostrix [ZTX356] tetanus toxoid, reduced diphtheria toxoid, and acellular [...] E&M - 3141-9 243 [lb_av] Weight Measured Diagnostic Results Date Name [...] PANEL - Chemistry cholesterol, serum 166 mg/dL 018-051 3120/12/06 triglyceride, serum, fasting 86 mg/dL 30-200 HDL [...] dipstick Negative Negative sodium, serum 142 mmol/L 399-754 5058/07/18 carbon dioxide, venous blood 27.8 mmol/L 21.0-32.0 [...] negative Encounters Code Encounter Date Provider Facility CPT-51123 Level 3 Est. Patient 15:20:50 CDT Jared Og MD [facility] CPT-34673 Level 3 Est. Patient 17:43:55 SENIOR PRODUCT DEVELOPMENT SCIENTIST Gab Padron MD [facility] CPT-38843 Level 3 Est. Patient 17:07:49 SENIOR PRODUCT DEVELOPMENT SCIENTIST Jared Og MD [facility] CPT-91572 Level 4 Est. Patient 19:55:18 SENIOR PRODUCT DEVELOPMENT SCIENTIST Jared Og MD [facility] CPT-38989 Level 3 Est. Patient 20:13:34 SENIOR PRODUCT DEVELOPMENT SCIENTIST Jared Og MD [facility] CPT-47252 Level 4 Est. Patient 16:31:27 CDT Gab Padron MD [facility] CPT-72000 Level 2 Est. Patient 12:23:38 CDT Jared Og MD [facility] CPT-15667 Level 3 Est. Patient 11:01:51 CDT Gab Padron MD [facility] CPT-36590 Level 3 Est. Patient 15:27:02 CDT Jared Og MD [facility] CPT-09645 Level 4 Est. Patient 09:25:27 CDT Gab Padron MD [facility] CPT-94243 Level 3 Est. Patient 10:29:41 CDT Rodrigo Sarah [facility] CPT-34776 Level 4 Est. Patient 17:51:05 CDT Gab Padron MD [facility]-88990 Level 3 Est. Patient 14:18:08 CDT Gab Padron MD [facility] CPT-56135 Level 4 Est. Patient 10:18:54 CDT Gab Padron MD [facility] CPT-22175 Level 3 Est. Patient 11:30:07 CDT Rodrigo Sarah [facility] CPT-47581 Level 4 Est. Patient 21:02:30 SENIOR PRODUCT DEVELOPMENT SCIENTIST Gab Padron MD [facility] CPT-53342 Level 3 Est. Patient 11:02:19 SENIOR PRODUCT DEVELOPMENT SCIENTIST Gab Padron MD [facility] CPT-86999 Level 4 Est. Patient 22:24:31 SENIOR PRODUCT DEVELOPMENT SCIENTIST Gab Padron MD [facility] CPT-30954 Level 3 Est. Patient 18:33:46 SENIOR PRODUCT DEVELOPMENT SCIENTIST Gab Padron MD [facility] CPT-54786 Level 3 Est. Patient 16:19:11 CDT Yolande Lindsay MD [facility] CPT-57008 Level 3 Est. Patient 18:59:14 CDT Yolande Lindsay MD [facility] CPT-09105 Level 4 Est. Patient 21:29:26 CDT Yolande Lindsay MD [facility]-76343 Level 3 Est. Patient 07:37:45 CDT Yolande Lindsay MD [facility]-55501 Level 3 Est. Patient 17:03:46 CDT Yolande Lindsay MD [facility]-81961 Level 4 Est. Patient 20:02:13 SENIOR PRODUCT DEVELOPMENT SCIENTIST Yolande Lindsay MD [facility]-27168 Level 3 Est. Patient 16:02:07 SENIOR PRODUCT DEVELOPMENT SCIENTIST Alexis Ordaz MD [facility]-20556 Level 3 Est. Patient 12:41:24 SENIOR PRODUCT DEVELOPMENT SCIENTIST Yolande Lindsay MD [facility]-18905 Level 3 Est. Patient 15:41:20 SENIOR PRODUCT DEVELOPMENT SCIENTIST Yolande Lindsay MD [facility]-42184 Level 3 Est. Patient 13:20:02 SENIOR PRODUCT DEVELOPMENT SCIENTIST Yolande Lindsay MD [facility] CPT-52399 Level 3 Est. Patient 15:00:38 CDT Jared Og MD [facility]-34134 Level 3 Est. Patient 10:22:32 CDT Yolande Lindsay MD [facility]-52627 Level 3 Est. Patient 17:12:58 CDT Yolande Lindsay MD [facility] CPT-03995 Level 4 Est. Patient 13:30:58 CDT Yolande Lindsay MD [facility] CPT-79973 Level 4 New Patient 09:02:42 CDT Jared Og MD [facility]-25494 Level 3 Est. Patient 08:19:07 CDT Yolande Lindsay MD [facility]-04602 Level 3 Est. Patient 12:00:13 SENIOR PRODUCT DEVELOPMENT SCIENTIST Gab Padron MD [facility]-99452 Level 3 Est. Patient 16:15:23 SENIOR PRODUCT DEVELOPMENT SCIENTIST Yolande Lindsay MD [facility]-41467 Level 2 Est. Patient 19:47:15 CDT Yolande Lindsay MD [facility]-87416 Level 3 Est. Patient 21:38:31 CDT Yolande Lindsay MD [facility]-30502 Level 3 Est. Patient 10:25:12 CDT Adiel PERAZA [facility] CPT-81843 Level 4 Est. Patient 10:51:58 CDT Yolande Lindsay MD [facility]-86528 Level 3 Est. Patient 14:04:55 SENIOR PRODUCT DEVELOPMENT SCIENTIST Rodrigo Sarah [facility]-40333 Level 3 Est. Patient 10:46:35 SENIOR PRODUCT DEVELOPMENT SCIENTIST Rodrigo Sarah [facility] CPT-07323 Level 3 Est. Patient 14:24:37 SENIOR PRODUCT DEVELOPMENT SCIENTIST Yolande Lindsay MD [facility]-10891 Level 3 Est. Patient 17:41:58 SENIOR PRODUCT DEVELOPMENT SCIENTIST Yolande Lindsay MD [facility]-07068 Level 2 Est. Patient 22:01:41 SENIOR PRODUCT DEVELOPMENT SCIENTIST Rodrigo Sarah [facility] CPT-36070 Level 2 Est. Patient 22:01:11 SENIOR PRODUCT DEVELOPMENT SCIENTIST Rodrigo Sarah [facility] CPT-39249 Level 3 Est. Patient 10:12:29 SENIOR PRODUCT DEVELOPMENT SCIENTIST Rodrigo Sarah [facility]-99187 Level 3 Est. Patient 11:05:44 CDT Alexis Ordaz MD [facility]-34620 Level 3 Est. Patient 14:57:20 CDT Yolande Lindsay MD [facility] CPT-98128 Level 3 Est. Patient 14:40:57 CDT Yolande Lindsay MD PhD [facility] CPT-24828 Level 3 Est. Patient 20:55:40 CDT Yolande Lindsay MD [facility] CPT-67957 Level 3 Est. Patient 12:42:38 SENIOR PRODUCT DEVELOPMENT SCIENTIST Yolande Lindsay MD [facility] CPT-88527 Level 3 Est. Patient 11:54:49 SENIOR PRODUCT DEVELOPMENT SCIENTIST Des Hines MD [facility] CPT-63038 Level 3 Est. Patient 17:06:38 CDT Dewayne PERAZA [facility] Procedures Code Procedure Name Date Entry Date Standard Description CPT-49114 Hip, complete, 2-3 views - XRAY USE ONLY 17:19:04 SENIOR PRODUCT DEVELOPMENT SCIENTIST CPT-01095 Venipuncture Draw Fee 08:37:59 SENIOR PRODUCT DEVELOPMENT SCIENTIST CPT-06337 Liver Profile - LAB USE ONLY 08:37:59 SENIOR PRODUCT DEVELOPMENT SCIENTIST CPT-71938 Lipid - LAB USE ONLY 08:37:58 SENIOR PRODUCT DEVELOPMENT SCIENTIST CPT-96518 First Vx - Ix admin via ID IM or jet injects without counseling by physician 11:52:31 CDT CPT-43925 Fluzone Preservative Free Intramuscular Suspension 11:52 :31 CDT CPT-93592 Foot, left, comp min 3V - XRAY USE ONLY 09:24:54 CDT CPT-23252 Abd single AP View - XRAY USE ONLY 11:16:17 CDT CPT-20986 T spine AP/ Lat - XRAY USE ONLY 09:34:21 CDT CPT-25820 Chest 2V Frontal and Lat - XRAY USE ONLY 10:48:51 CDT CPT-13506 LS spine comp w obliq 13:28:00 SENIOR PRODUCT DEVELOPMENT SCIENTIST CPT-J1040 Depo Medrol 80 mg (Methyl Prednisolone Acetate) 10:51: 28 SENIOR PRODUCT DEVELOPMENT SCIENTIST CPT-J1100 Decadron 8mg (Dexamethasone) 10:51:28 SENIOR PRODUCT DEVELOPMENT SCIENTIST CPT-32403 Abx/Therapy Injection 10:51:28 SENIOR PRODUCT DEVELOPMENT SCIENTIST CPT-J1100 Decadron 8mg (Dexamethasone) 21:02:30 SENIOR PRODUCT DEVELOPMENT SCIENTIST CPT-J1040 Depo Medrol 80 mg (Methyl Prednisolone Acetate) 21:02: 30 SENIOR PRODUCT DEVELOPMENT SCIENTIST [id number] Event Monitor - MC Transmission 09:12:32 CDT 08/06 [id number] Event Monitor - MC review and interp 09:12:32 CDT [id number] Event Monitor - MC recording 09:12:32 CDT CPT-69177 EKG Trac and Interp 16:50:22 CDT CPT-J1030 Depo Medrol 40 mg (Methyl Prednisolone Acetate) 17:05: 54 CDT CPT-J1100 Decadron 4mg (Dexamethasone) 17:05:54 CDT CPT-85087 Abx/Therapy Injection 17:05:54 CDT CPT-J1100 Decadron 4mg (Dexamethasone) 16:55:28 CDT CPT-J1030 Depo Medrol 40 mg (Methyl Prednisolone Acetate) 16:55: 28 CDT CPT-21779 Ankle Complete - Min 3V 15:58:50 CDT CPT-00993 Knee 3V 15:58:50 CDT CPT-26473 Hip comp min 2V 15:58:50 CDT CPT-J2270 Morphine Sulfate 10 mg 14:25:44 SENIOR PRODUCT DEVELOPMENT SCIENTIST CPT-J2550 Phenergan 12.5 mg (Promethazine) 14:25:44 SENIOR PRODUCT DEVELOPMENT SCIENTIST CPT-82960 Abx/Therapy Injection 14:25:44 SENIOR PRODUCT DEVELOPMENT SCIENTIST CPT-J2550 Phenergan 12.5 mg (Promethazine) 14:08:03 SENIOR PRODUCT DEVELOPMENT SCIENTIST CPT-J2270 Morphine Sulfate 10 mg 14:08:03 SENIOR PRODUCT DEVELOPMENT SCIENTIST CPT-18834 Bladder Scan 15:00:38 CDT CPT-TCMM Transitional Care Mgmt-Moderate 09:52:22 CDT CPT-J1030 Depo Medrol 40 mg (Methyl Prednisolone Acetate) 10:55: 18 CDT CPT-J1100 Decadron 4mg (Dexamethasone) 10:55:18 CDT CPT-11303 Abx/Therapy Injection 10:55:18 CDT CPT-J1030 Depo Medrol 40 mg (Methyl Prednisolone Acetate) 10:22: 32 CDT CPT-J1100 Decadron 4mg (Dexamethasone) 10:22:32 CDT CPT-13543 Postop F/U Visit 14:37:13 CDT CPT-89007 Ankle Complete - Min 3V 17:11:58 CDT CPT-26350 Foot comp min 3V 17:11:58 CDT CPT-92023 Bladder Scan 09:56:58 CDT CPT-08201 Postop F/U Visit 09:56:58 CDT CPT-78129 Cystoscopy 09:02:42 CDT CPT-27591 Bladder Scan 09:02:42 CDT CPT-77245 Abd single AP View 16:00:35 CDT CPT-18878 Administration single or combination vaccine inc oral 10 :15:43 CDT CPT-58679 Influenza split virus > age 3 10:15:43 CDT CPT-87331 Nail Avulsion 09:24:57 CDT CPT-OV Office Visit 11:15:41 CDT CPT-21347 Abx/Therapy Injection 10:51:30 CDT CPT-J3301 Kenalog 40 mg (Triamcinolone Acetonide) 10:25:12 CDT CPT-J1100 Decadron 4mg (Dexamethasone) 10:25:12 CDT CPT-73823 Anoscopy diagnostic 10:36:12 CDT CPT-OV Office Visit 15:34:31 CDT CPT-52438 Abx/Therapy Injection 08:21:15 SENIOR PRODUCT DEVELOPMENT SCIENTIST CPT-J1885 Toradol 60 mg (Ketorolac) 10:46:35 SENIOR PRODUCT DEVELOPMENT SCIENTIST CPT-OV Office Visit 19:51:16 SENIOR PRODUCT DEVELOPMENT SCIENTIST CPT-29299 Spec Collection and Handling Fee 14:34:18 SENIOR PRODUCT DEVELOPMENT SCIENTIST CPT-PV Prev. Care Visit 14:19:18 SENIOR PRODUCT DEVELOPMENT SCIENTIST CPT-39267 Postop F/U Visit 14:47:51 SENIOR PRODUCT DEVELOPMENT SCIENTIST CPT-57430 Postop F/U Visit 15:15:14 SENIOR PRODUCT DEVELOPMENT SCIENTIST CPT-77458 Postop F/U Visit 14:41:43 CDT CPT-19468 Postop F/U Visit 15:47:46 CDT CPT-OV Office Visit 15:27:23 CDT CPT-OV Office Visit 17:20:34 CDT CPT-48715 Abx/Therapy Injection 15:05:57 CDT CPT-J1100 Decadron 8mg (Dexamethasone) 14:44:57 CDT CPT-J1040 Depo Medrol 80 mg (Methyl Prednisolone Acetate) 14:44: 57 CDT CPT-JTINJ Joint Injection 10:17:37 CDT CPT-88708 Administration 2+ single or combination vaccines inc oral 13:01:46 SENIOR PRODUCT DEVELOPMENT SCIENTIST CPT-13232 Administration single or combination vaccine inc oral 13 :01:46 SENIOR PRODUCT DEVELOPMENT SCIENTIST CPT-69584 Pneumovax 13:01:46 SENIOR PRODUCT DEVELOPMENT SCIENTIST CPT-42268 Influenza split virus > age 3 13:01:46 SENIOR PRODUCT DEVELOPMENT SCIENTIST CPT-25510 Administration single or combination vaccine inc oral 08 :56:49 CDT CPT-10216 Tdap 08:56:49 CDT
--- OUTSIDE RECORDS SUMMARY | 2017-03-22 02:02 | XMS REPORT ---
Author Author [facility] Medical Staff Organization [facility] Address [address] [id number] Phone [phone] Care Team Providers Care Planning Coordinator Name Role Phone LENKA HUTSON, EUNICE PP [phone] EUNICE OG MD, PP [phone] Summary purpose TRANSITION OF CARE AUTO GENERATION [...] diagnostic tests and/or laboratory data RESULTS Chemistry [id number]:25:00 Result Normal Range Units Sodium 143 134-145 mEq/l Potassium 4.2 3.5-5.1 mEq/l Chloride H 110 98-107 mEq/l CO2 23.4 22-28 mEq/l Glucose 85 70-105 mg/dl BUN H 21 7-18 mg/dl Creatinine H 1.38 0.6-1.0 mg/dl Calcium L 7.8 8.4-10.2 mg/dl Osmolality 287.2 280-300 mOsm/L Anion GAP 9.6 8-16 BUN/Creatinine Ratio 15.2 10-20 Estimated GFR L 40 >=60 mL/min/1.7 Hematology 64-59-206709:25:00 Result Normal Range Units WBC 6.1 4.8-10.8 103/uL RBC L 3.8 4.2-5.4 106/uL HGB L 11.0 12.0-16.0 g/dl HCT L 33.1 36.9-47.0 % MCV 88.0 81-99 FL MCH 29.3 27-31 pg MCHC 33.2 33-37 g/dl RDW 14.2 11.5-15.5 % PLT 175 130-400 103/uL MPV 9.0 7.3-10.4 FL Neutro % 61.7 40-70 % Lymph % 30.3 20-40 % [place] % 7.7 0-10.0 % Eos % 0.0 0-7.0 % Baso % 0.3 0-2 % Neutro # 3.8 1.5-7.5 103/uL Lymph # 1.9 0.9-4.0 103/uL [place] # 0.5 0-0.8 103/uL Eos # 0.0 0-0.6 103/uL Baso # 0.0 0-0.1 103/uL Radiology Results [id number]:25:00 Result Normal Range Units MPV 9.0 7.3-10.4 FL History of procedures Procedure Code Code Type Description Date Performed Performing Physician 46669 CPT-4 COMPLETE CBC W/AUTO DIFF WBC 07-31-2014 JUAN JOSE CERRATO 09504 CPT-4 METABOLIC PANEL TOTAL CA 07-31-2014 JUAN JOSE CERRATO 04621 CPT-4 ELECTROCARDIOGRAM, TRACING 07-31-2014 JUAN JOSE CERRATO Functional status Functional Status Finding Observation Time Hearing Prob Loc none [id number]:47 Vision Problems yes [id number]:47 Vision Correct Dev glasses 23-53-339253:47 Ambulation Asst Dev none 04-19-050848:47 Range of Motion full 18-30-053743:10 Muscle Strength RUE 5 ROM full resist 96-23-607100:10 Muscle Strength RLE 5 ROM full resist :10 Muscle Strength LUE 5 ROM full resist :10 Muscle Strength LLE 5 ROM full resist 83-22-058110:10 Transfers assist x 1 :10 Ambulation in room :10 Balance unsteady :10 Bathing Assistance none :47 Eating Assistance none :47 Dressing Assistance none :47 Toileting Assistance none :47 Transfer Assistance none :47 Decline Slf Care/Mob no :47 Phys Cond Stable yes :47 Nutrition normal :10 Diet regular :10 Oral Cavity moist and intact : Teeth dentures :10 Dental Hygiene good 68-73-931679:10 Abdomen Appearance obese :10 Abdomen soft :10 Bowel Sounds present :10 NG Tube no :10 Feeding Tube none :10 Bajwa no :10 Cont Bladder Irr no :10 Ostomy no :10 Stool normal 45-26-412179:10 Urination normal :10 Urine Clarity clear :00 Urine Color straw :00 Quality sym/unlabored :10 Cough absent :10 Secretions no :10 Breath Sounds RUL clear :10 Breath Sounds RML clear :10 Breath Sounds RLL clear :10 Breath Sounds LESLIE clear :10 Breath Sounds LLL clear :10 Airway natural :10 Chest Tube no :10 Oxygen no :45 C-PAP no 84-02-620839:10 BI-PAP no 43-71-290071:10 Temp >100.4 no :10 Temp <96.8 no [...] Yes :47 Mini Mental Total 25 points 54-60-749517:47 Learning Ability comprehends well : Neurological no :06 Psychological no :06 Physical no :06 Hearing no :06 Carcass Washer Needed no :06 Sign Language no : Emotional no :06 Vision yes :06 [place] no 34-07-305146:06 Financial no :06 Vital signs Type Value Date Respiration Rate 18breaths per minute :45 Pulse 48beats per minute :45 Oxygen Saturation 100% :45 BP Systolic 131mmHg :45 BP Diastolic 58mmHg :45 Temperature 96.0F 60-92-454822:10 Height 62inches 77-34-417193:47 Weight 240LB 72-77-095653:47 Social history Type Value Smoking Status FORMER [...]
--- OUTSIDE RECORDS SUMMARY | 2017-03-22 02:05 | XMS REPORT | Clinical Summary ---
Author Author Admin, E Organization [facility] Address Unknown Phone Unavailable Allergies, Adverse Reactions, Alerts Allergy Name Reaction Description Start Date Severity Status Provider VALENTIN Critical Active Rodrigo Fracharlottel [employer] CHLORHEXIDINE GLUCONATE tongue and gums swollen Critical Active Hoa Otto RMA NORFLEX Rash Critical Active Silvestrellina Frazell [employer] TRAZODONE HCL sees things Critical Active Dewayne [...] stool HEMORRHOIDS, INTERNAL, WITH BLEEDING 455.2 Resolved Yolnade Lindsay MD PhD Internal hemorrhoids with other [...] MD Lumbago Cough 786.2 Active Jillina Tyrel [employer] Cough 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 Jillina Frazellilian [employer] 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 Anemia 285.9 Active Gab Padron MD Anemia, unspecified Conjunctivitis 372.30 Active Jillnacho Sarah APRN Conjunctivitis, unspecified Sinusitis 473.9 Active Silvestrellina Frazell [employer] Unspecified sinusitis (chronic) Nonspecific syndrome suggestive of viral illness 079.99 Active Jillina Frazell [employer] Unspecified viral infection Laryngitis 464.00 Active Jillina Frazell [employer] Acute laryngitis without mention of obstruction Abdominal [...] Flank pain, left 789.09 Active Jillina Frazell [employer] Abdominal pain, other specified site; multiple sites Abdominal pain, generalized 789.07 Active Jillina Farshadzell [employer] Abdominal pain, generalized Back pain, thoracic region, left 724.1 Active Jillina Frazell [employer] Pain in thoracic spine Abdominal pain, left [...] 1/2 tab daily for 2 days PREDNISONE 56817834581 No Longer Active Gab Padron MD Active ZOFRAN ODT 4 MG TBDP 1 po q6hr PRN Nausea ONDANSETRON 54045200707 Active Silvestrellina Tyrel GAUTAM Active IBUPROFEN 600 MG TAB 1 tablet by mouth every 6 hours for 7 days, then 1 tablet every 6 hours as needed. Take with food IBUPROFEN 96733905715 Active Jillina Frazell DAIN Active BACTRIM DS 800-160 MG TAB 1 tab by mouth twice daily TRIMETHOPRIM-SULFAMETHOXAZOLE 67489857660 No Longer Active Gab Padron MD Active ADVAIR DISKUS 250-50 MCG/DOSE AEPB 1 puff BID FLUTICASONE- SALMETEROL 01782774541 Active Rodrigo Sarah APRN Active LEVOTHYROXINE SODIUM 75 MCG TABS Take 1 tab daily LEVOTHYROXINE SODIUM 23139796058 No Longer Active Mariana HICKEYA Active SYNTHROID 88 MCG ORAL TABS Take one by mouth daily LEVOTHYROXINE SODIUM 52309662665 Active Mariana HICKEYA Active CHERATUSSIN AC 100-10 MG/5ML SYRP 1 tsp by mouth every 4 hours as needed for cough GUAIFENESIN-CODEINE 19678357437 No Longer Active Gab Padron MD Active POLYTRIM 30762-0.1 UNIT/ML-% SOLN 1 gtt to affected eye q3h x 7 days POLYMYXIN B-TRIMETHOPRIM 10044919511 No Longer Active Gab Padron MD Active FLUTICASONE PROPIONATE 50 MCG/ACT SUSP 1 to 2 sprays each nostril daily 04/21 FLUTICASONE PROPIONATE 07643561720 No Longer Active Gab Padron MD Active TRILEPTAL 600 MG TABS Take one 1 tablet in Am and 1 tablet at night OXCARBAZEPINE 86072901921 Active Gab Padron MD Active CEFDINIR 300 MG CAPS 1 po BID x 10 days CEFDINIR 34693521136 No Longer Active Rodrigo Sarah APRN Active CEFTIN 500 MG TAB 1 twice a day CEFUROXIME AXETIL 74787839812 No Longer Active Gab Padron MD Active AZITHROMYCIN 250 MG TABS 2 po qd x 1 day, then 1 po qd x 4 days AZITHROMYCIN 44121321560 No Longer Active Silvestrellnacho Sarah APRN Active CLARITIN 10 MG TAB 1 tablet by mouth daily as needed for allergies LORATADINE 73323161727 Active Silvestrellnacho Sarah APRN Active OXYCODONE HCL 5 MG ORAL CAPS 1 TAB PO Q HS OXYCODONE HCL 26761024717 No Longer Active Rodrigo Sarah APRN Active NIASPAN 500 MG ORAL CR-TABS 1 pill nightly x 1 week, then 2 pills nightly x 1 week, then 3 pills nightly x 1 week, then 4 pills nightly NIACIN (ANTIHYPERLIPIDEMIC) 01160219753 No Longer Active Silvestrebernabe Yenhossein [employer] Active NIACIN 500 MG TABS 1 pill by mouth nightly x 1 week, then 2 pills x 1 week, then 3 pills x 1 week, then 4 pills nightly - take after evening meal, with applesauce or an apple NIACIN 42308502778 No Longer Active Yolande Lindsay MD PhD Active FISH OIL 1000 MG CAPS 3 pills daily OMEGA-3 FATTY ACIDS 25385973753 Active Yolande Lindsay MD PhD Active TRIAMCINOLONE ACETONIDE 0.1 % CREA apply bid sparingly to rash TRIAMCINOLONE ACETONIDE 20596139251 Active Yolande Lindsay MD PhD Active FUROSEMIDE 20 MG TAB 1 tablet by mouth daily FUROSEMIDE 90839999099 Active Tisha Lambert APRN Active LISINOPRIL 20 MG ORAL TABS 1 tab by mouth daily LISINOPRIL 16928723557 Active Gab Padron MD Active FUROSEMIDE 20 MG TABS 1 pill by mouth daily, for edema FUROSEMIDE 11649710707 No Longer Active Yolande Lindsay MD PhD Active ATORVASTATIN CALCIUM 10 MG TABS 1 pill by mouth daily, for cholesterol 09/06 ATORVASTATIN CALCIUM 77328627366 Active Gab Padron MD Active CALCIUM 600+D PLUS MINERALS 600-400 MG-UNIT ORAL CHEW 1 tab by mouth daily CALCIUM CARBONATE-VIT D-MIN 75477267338 No Longer Active Yolande Lindsay MD PhD Active CYCLOBENZAPRINE HCL 10 MG TABS 1 tablet by mouth three times daily as needed for muscle spasm/pain CYCLOBENZAPRINE HCL 06237593105 Active Yolande Lindsay MD PhD Active ONDANSETRON 4 MG TBDP 1 q4h PRN nausea ONDANSETRON 88162426981 Active Yolande Lindsay MD PhD Active ADULT ASPIRIN EC LOW STRENGTH 81 MG TBEC Take 1 tablet by mouth daily 2014 ASPIRIN 33604862798 No Longer Active Yolande Lindsay MD PhD Active ZOFRAN ODT 4 MG TBDP 1 pill dissolved by mouth every 4 hours if needed for nausea ONDANSETRON 29403639484 No Longer Active Yolande Lindsay MD PhD Active CEFTIN 500 MG TAB 1 twice a day CEFUROXIME AXETIL 31616807158 No Longer Active Yolande Lindsay MD PhD Active ALBUTEROL SULFATE 0.083 % NEBU SOLN one vial per nebulizer every 4-6 hours as needed ALBUTEROL SULFATE 01459730925 No Longer Active Alexis Ordaz MD Active DOXYCYCLINE HYCLATE 100 MG CAP 1 cap by mouth twice daily DOXYCYCLINE HYCLATE 64578559741 No Longer Active Yolande Lindsay MD PhD Active CYCLOBENZAPRINE HCL 10 MG TABS 1/2 - 1 tab by mouth three times daily if needed for spasms/pain CYCLOBENZAPRINE HCL 57990180729 No Longer Active Yolande Lindsay MD PhD Active AZITHROMYCIN 250 MG TABS 2 pills on day 1, then 1 pill daily x 4 days AZITHROMYCIN 85421757762 No Longer Active Yolande Lindsay MD PhD Active XOPENEX 1.25 MG/3ML NEBU 1 neb every 4 hours if needed for cough/congestion LEVALBUTEROL HCL 86190726298 No Longer Active Yolande Lindsay MD PhD Active DOXYCYCLINE HYCLATE 100 MG TAB 1 tab twice a day for 14 days 2013 DOXYCYCLINE HYCLATE 12551829801 No Longer Active Yolande Lindsay MD PhD Active PREVACID 30 MG CPDR Take 1 tablet by mouth daily-PRN LANSOPRAZOLE 81677286181 No Longer Active Yolande Lindsay MD PhD Active PA VITAMIN D-3 2000 UNIT CAPS 1 CAP PO DAILY CHOLECALCIFEROL 14406667320 No Longer Active Yolande Lindsay MD PhD Active CEFDINIR 300 MG CAPS by mouth twice a day CEFDINIR 43267490108 No Longer Active Gab Padron MD Active TOPAMAX 50 MG TABS 1 PO twice daily TOPIRAMATE 61447503889 Active Yolande Lindsay MD PhD Active AZITHROMYCIN 250 MG TABS 2 po qd x 1 day, then 1 po qd x 4 days AZITHROMYCIN 06363911310 No Longer Active Yolande Lindsay MD PhD Active DICLOFENAC SODIUM 75 MG TBEC 1 tablet by q 12 hours PRN headaches DICLOFENAC SODIUM 87011581220 No Longer Active Yolande Lindsay MD PhD Active FLONASE 50 MCG/ACT SUSP 1 spray each nostril am and hs FLUTICASONE PROPIONATE 16226586297 No Longer Active Todd Callaway MD Active ANUSOL-HC 25 MG SUPPOSITORY 1 rectally twice a day as needed for hemorrhoids HYDROCORTISONE JAYDEN (RECTAL) 37655031290 No Longer Active Yolande Lindsay MD PhD Active ANUSOL-HC 25 MG SUPPOSITORY 1 suppository rectally each evening as needed for anal fissure HYDROCORTISONE JAYDEN (RECTAL) 63593318509 No Longer Active LONNIE Iglesias Active VALIUM 5 MG TAB 1 po 30 minutes prior to your MRI DIAZEPAM 40752213210 No Longer Active LONNIE Iglesias Active METHOCARBAMOL 750 MG TABS 1 PO QID PRN METHOCARBAMOL 40015872606 No Longer Active Daphne Wetzel APRN Active NITROSTAT 0.4 MG SUBL as directed NITROGLYCERIN 37601805462 No Longer Active Rodrigo Sarah APRN Active ROBAXIN-750 750 MG TABS 2 four times a day for 3 days as needed for muscle spasm, then 1 four times a day as needed METHOCARBAMOL 22974183030 No Longer Active Rodrigo Sarah APRN Active HYDROCODONE-ACETAMINOPHEN 5-325 MG TABS 1 q 4-6 hrs prn HYDROCODONE-ACETAMINOPHEN 76613780889 No Longer Active Rodrigo Sarah [employer] Active VERAPAMIL HCL CR 180 MG CR-TABS TAKE 1 TAB DAILY VERAPAMIL HCL 83832394246 No Longer Active Yolande Lindsay MD PhD Active BACTRIM DS 800-160 MG TAB 1 tab by mouth twice daily TRIMETHOPRIM-SULFAMETHOXAZOLE 06944232824 No Longer Active Yolande Lindsay MD PhD Active NEXIUM 40 MG PACK 1 by mouth daily ESOMEPRAZOLE MAGNESIUM 31341615407 No Longer Active Des Hines MD Active EPIPEN 2-CHARLETTE 0.3 MG/0.3ML OMARI as need for allergic reaction EPINEPHRINE 28281846277 Active Yolande Lindsay MD PhD Active NEXIUM 40 MG CPDR 1 PO Q D DAY ESOMEPRAZOLE MAGNESIUM 33454769188 No Longer Active Sadia Perry RN Active NEXIUM 40 MG PACK 1 by mouth daily NEXIUM 40 MG PACK ESOMEPRAZOLE MAGNESIUM Inactive VERAPAMIL HCL CR 180 MG CR-TABS TAKE 1 TAB DAILY VERAPAMIL HCL CR 180 MG CR-TABS VERAPAMIL HCL Inactive HYDROCODONE-ACETAMINOPHEN 5-325 MG TABS 1 q 4-6 hrs prn HYDROCODONE-ACETAMINOPHEN 5-325 MG TABS 973497 HYDROCODONE-ACETAMINOPHEN Inactive ROBAXIN-750 750 MG TABS 2 four times a day for 3 days as needed for muscle spasm, then 1 four times a day as needed ROBAXIN-750 750 MG TABS 132501 METHOCARBAMOL Inactive NITROSTAT 0.4 MG SUBL as directed NITROSTAT 0.4 MG SUBL NITROGLYCERIN Inactive METHOCARBAMOL 750 MG TABS 1 PO QID PRN METHOCARBAMOL 750 MG TABS 012733 METHOCARBAMOL Inactive VALIUM 5 MG TAB 1 po 30 minutes prior to your MRI VALIUM 5 MG TAB 247922 DIAZEPAM Inactive ANUSOL-HC 25 MG SUPPOSITORY 1 suppository rectally each evening as needed for anal fissure ANUSOL-HC 25 MG SUPPOSITORY 9666611 HYDROCORTISONE JAYDEN (RECTAL) Inactive ANUSOL-HC 25 MG SUPPOSITORY 1 rectally twice a day as needed for hemorrhoids ANUSOL-HC 25 MG SUPPOSITORY 8408520 HYDROCORTISONE JAYDEN (RECTAL) Inactive FLONASE 50 MCG/ACT SUSP 1 spray each nostril am and hs FLONASE 50 MCG/ACT SUSP FLUTICASONE PROPIONATE Inactive DICLOFENAC SODIUM 75 MG TBEC 1 tablet by q 12 hours PRN headaches DICLOFENAC SODIUM 75 MG TBEC 052074 DICLOFENAC SODIUM Inactive PA VITAMIN D-3 2000 UNIT CAPS 1 CAP PO DAILY PA VITAMIN D-3 2000 UNIT CAPS CHOLECALCIFEROL Inactive PREVACID 30 MG CPDR Take 1 tablet by mouth daily-PRN PREVACID 30 MG CPDR 453542 LANSOPRAZOLE Inactive DOXYCYCLINE HYCLATE 100 MG TAB 1 tab twice a day for 14 days 2013 DOXYCYCLINE HYCLATE 100 MG TAB 4605415 DOXYCYCLINE HYCLATE Inactive XOPENEX 1.25 MG/3ML NEBU 1 neb every 4 hours if needed for cough/congestion XOPENEX 1.25 MG/3ML NEBU 877878 LEVALBUTEROL HCL Inactive CYCLOBENZAPRINE HCL 10 MG TABS 1/2 - 1 tab by mouth three times daily if needed for spasms/pain CYCLOBENZAPRINE HCL 10 MG TABS 827170 CYCLOBENZAPRINE HCL Inactive ALBUTEROL SULFATE 0.083 % NEBU SOLN one vial per nebulizer every 4-6 hours as needed ALBUTEROL SULFATE 0.083 % NEBU SOLN 941101 ALBUTEROL SULFATE Inactive CEFTIN 500 MG TAB 1 twice a day CEFTIN 500 MG TAB 684534 CEFUROXIME AXETIL Inactive ZOFRAN ODT 4 MG TBDP 1 pill dissolved by mouth every 4 hours if needed for nausea ZOFRAN ODT 4 MG TBDP 731276 ONDANSETRON Inactive ADULT ASPIRIN EC LOW STRENGTH 81 MG TBEC Take 1 tablet by mouth daily 2014 ADULT ASPIRIN EC LOW STRENGTH 81 MG TBEC 890932 ASPIRIN Inactive CALCIUM 600+D PLUS MINERALS 600-400 [...] or an apple NIACIN 500 MG TABS 501513 NIACIN Inactive NIASPAN 500 MG ORAL CR-TABS 1 pill nightly x 1 week, then 2 pills nightly x 1 week, then 3 pills nightly x 1 week, then 4 pills nightly NIASPAN 500 MG ORAL CR-TABS NIACIN (ANTIHYPERLIPIDEMIC) Inactive OXYCODONE HCL 5 MG ORAL CAPS 1 TAB PO Q HS OXYCODONE HCL 5 MG ORAL CAPS 4227430 OXYCODONE HCL Inactive FLUTICASONE PROPIONATE 50 MCG/ACT SUSP 1 to 2 sprays each nostril daily 04/21 FLUTICASONE PROPIONATE 50 MCG/ACT SUSP 5814878 FLUTICASONE PROPIONATE Inactive POLYTRIM 20338-5.1 UNIT/ML-% SOLN 1 gtt to affected eye q3h x 7 days POLYTRIM 37397-4.1 UNIT/ML-% SOLN 986259 POLYMYXIN B- TRIMETHOPRIM Inactive CHERATUSSIN AC 100-10 MG/5ML SYRP 1 tsp by mouth every 4 hours as needed for cough CHERATUSSIN AC 100-10 MG/5ML SYRP 758855 GUAIFENESIN-CODEINE Inactive LEVOTHYROXINE SODIUM 75 MCG TABS Take 1 tab daily LEVOTHYROXINE SODIUM 75 MCG TABS 176298 LEVOTHYROXINE SODIUM Inactive BACTRIM DS 800-160 MG TAB 1 tab by mouth twice daily BACTRIM DS 800-160 MG TAB 19820606 TRIMETHOPRIM-SULFAMETHOXAZOLE Inactive AZITHROMYCIN 250 MG TABS 2 po qd x 1 day, then 1 po qd x 4 days AZITHROMYCIN 250 MG TABS 2134406 AZITHROMYCIN Inactive CEFDINIR 300 MG CAPS by mouth twice a day CEFDINIR 300 MG CAPS 677006 CEFDINIR Inactive AZITHROMYCIN 250 MG TABS 2 pills on day 1, then 1 pill daily x 4 days AZITHROMYCIN 250 MG TABS 3046145 AZITHROMYCIN Inactive DOXYCYCLINE HYCLATE 100 MG CAP 1 cap by mouth twice daily DOXYCYCLINE HYCLATE 100 MG CAP 3208417 DOXYCYCLINE HYCLATE Inactive FUROSEMIDE 20 MG TABS 1 pill by mouth daily, for edema FUROSEMIDE 20 MG TABS 190439 FUROSEMIDE Inactive AZITHROMYCIN 250 MG TABS 2 po qd x 1 day, then 1 po qd x 4 days AZITHROMYCIN 250 MG TABS 6988049 AZITHROMYCIN Inactive CEFTIN 500 MG TAB 1 twice a day CEFTIN 500 MG TAB 013808 CEFUROXIME AXETIL Inactive CEFDINIR 300 MG CAPS [...] for 2 days PREDNISONE 20 MG TAB 751139 PREDNISONE Inactive Immunizations Vaccine Administration Date Value Standard Description Seasonal influenza vaccine, injectable, containing preservative, for > 3 years old (Afluria, FluLaval, Fluzone, Fluvirin, Fluarix, Agriflu(>=18 yo)) Fluzone (>3 yrs.) [FFI997] Influenza, seasonal, injectable influenza immunization (Flu Vax) has been administered Influenza - Unspecified Formulation [CVX88] influenza virus vaccine, unspecified formulation Seasonal influenza vaccine, injectable, containing preservative, for > 3 years old (Afluria, FluLaval, Fluzone, Fluvirin, Fluarix, Agriflu(>=18 yo)) Fluzone (>3 yrs.) [DFH974] Influenza, seasonal, injectable pneumococcal immunization administered Pneumovax 23 [CVX33] pneumococcal polysaccharide vaccine, 23 valent dT (Diphtheria and Tetanus) booster given given Td(adult) unspecified formulation Boostrix (Tetanus toxoid, reduced diphtheria toxoid and acellular pertussis vaccine, adsorbed), booster Boostrix [KLJ056] tetanus toxoid, reduced diphtheria toxoid, and acellular [...] Panel - Chemistry sodium, serum 142 mmol/L 013-227 6049/06/30 potassium, serum 4.4 mmol/L 3.5-5.2 chloride, serum [...] Rate - Chemistry sodium, serum 139 mmol/L 750-204 1751/03/24 carbon dioxide, venous blood 22.4 mmol/L 21.0-32.0 [...] ... - Chemistry sodium, serum 143 mmol/L 961-231 2041/05/02 carbon dioxide, venous blood 25.6 mmol/L 21.0-32.0 [...] dipstick Negative Negative sodium, serum 142 mmol/L 303-517 0073/07/18 carbon dioxide, venous blood 27.8 mmol/L 21.0-32.0 [...] mg/dL Encounters Code Encounter Date Provider Facility CPT-08094 Level 2 Est. Patient 12:23:38 CDT Jared Og MD [facility] CPT-86446 Level 3 Est. Patient 11:01:51 CDT Gab Padron MD [facility] CPT-54731 Level 3 Est. Patient 15:27:02 CDT Jared Og MD [facility] CPT-59814 Level 4 Est. Patient 09:25:27 CDT Gab Padron MD [facility] CPT-22795 Level 3 Est. Patient 10:29:41 CDT Rodrigo Sarah [facility] CPT-22658 Level 4 Est. Patient 17:51:05 CDT Gab Padron MD [facility] CPT-29832 Level 3 Est. Patient 14:18:08 CDT Gab Padron MD [facility] CPT-94960 Level 4 Est. Patient 10:18:54 CDT Gab Padron MD [facility] CPT-65708 Level 3 Est. Patient 11:30:07 CDT Rodrigo Sarah [facility] CPT-22824 Level 4 Est. Patient 21:02:30 BOTTOM CRANE OPERATOR Gab Padron MD [facility] CPT-43309 Level 3 Est. Patient 11:02:19 BOTTOM CRANE OPERATOR Gab Padron MD [facility] CPT-47565 Level 4 Est. Patient 22:24:31 BOTTOM CRANE OPERATOR Gab Padron MD [facility] CPT-82848 Level 3 Est. Patient 18:33:46 BOTTOM CRANE OPERATOR Gab Padron MD [facility] CPT-14216 Level 3 Est. Patient 16:19:11 CDT Yolande Lindsay MD [facility]-75405 Level 3 Est. Patient 18:59:14 CDT Yolande Lindsay MD [facility]-99227 Level 4 Est. Patient 21:29:26 CDT Yolande Lindsay MD [facility]-46030 Level 3 Est. Patient 07:37:45 CDT Yolande Lindsay MD [facility]-95402 Level 3 Est. Patient 17:03:46 CDT Yolande Lindsay MD [facility]-94154 Level 4 Est. Patient 20:02:13 BOTTOM CRANE OPERATOR Yolande Lindsay MD [facility]-75360 Level 3 Est. Patient 16:02:07 BOTTOM CRANE OPERATOR Alexis Ordaz MD [facility]-25594 Level 3 Est. Patient 12:41:24 BOTTOM CRANE OPERATOR Yolande Lindsay MD [facility]-60485 Level 3 Est. Patient 15:41:20 BOTTOM CRANE OPERATOR Yolande Lindsay MD [facility]-82538 Level 3 Est. Patient 13:20:02 BOTTOM CRANE OPERATOR Yolande Lindsay MD [facility]-91290 Level 3 Est. Patient 15:00:38 CDT Jared Og MD [facility]-43041 Level 3 Est. Patient 10:22:32 CDT Yolande Lindsay MD [facility]-68858 Level 3 Est. Patient 17:12:58 CDT Yolande Lindsay MD [facility]-43414 Level 4 Est. Patient 13:30:58 CDT Yolande Lindsay MD [facility]-94451 Level 4 New Patient 09:02:42 CDT Jared Og MD [facility]-82083 Level 3 Est. Patient 08:19:07 CDT Yolande Lindsay MD [facility]-02725 Level 3 Est. Patient 12:00:13 BOTTOM CRANE OPERATOR Gab Padron MD [facility]-51678 Level 3 Est. Patient 16:15:23 BOTTOM CRANE OPERATOR Yolande Lindsay MD [facility]-18100 Level 2 Est. Patient 19:47:15 CDT Yolande Lindsay MD [facility]-30947 Level 3 Est. Patient 21:38:31 CDT Yolande Lindsay MD [facility]-03476 Level 3 Est. Patient 10:25:12 CDT Adiel PERAZA [facility]-49342 Level 4 Est. Patient 10:51:58 CDT Yolande Lindsay MD [facility] CPT-33861 Level 3 Est. Patient 14:04:55 BOTTOM CRANE OPERATOR Rodrigo Sarah [facility]-94148 Level 3 Est. Patient 10:46:35 BOTTOM CRANE OPERATOR Rodrigo Sarah [facility] CPT-02850 Level 3 Est. Patient 14:24:37 BOTTOM CRANE OPERATOR Yolande Lindsay MD [facility]-38758 Level 3 Est. Patient 17:41:58 BOTTOM CRANE OPERATOR Yolande Lindsay MD [facility]-95507 Level 2 Est. Patient 22:01:41 BOTTOM CRANE OPERATOR Rodrigo Sarah [facility]-46472 Level 2 Est. Patient 22:01:11 BOTTOM CRANE OPERATOR Rodrigo Sarah [facility]-95850 Level 3 Est. Patient 10:12:29 BOTTOM CRANE OPERATOR Rodrigo Sarah APRN [facility] CPT-45455 Level 3 Est. Patient 11:05:44 CDT Alexis Ordaz MD [facility] CPT-79886 Level 3 Est. Patient 14:57:20 CDT Yolande Lindsay MD [facility] CPT-28247 Level 3 Est. Patient 14:40:57 CDT Yolande Lindsay MD [facility] CPT-24897 Level 3 Est. Patient 20:55:40 CDT Yolande Lindsay MD [facility] CPT-18218 Level 3 Est. Patient 12:42:38 BOTTOM CRANE OPERATOR Yolande Lindsay MD [facility]-93750 Level 3 Est. Patient 11:54:49 BOTTOM CRANE OPERATOR Des Hines MD [facility] CPT-73240 Level 3 Est. Patient 17:06:38 CDT Dewayne PERAZA [facility] Procedures Code Procedure Name Date Entry Date Standard Description CPT-75333 Foot, left, comp min 3V - XRAY USE ONLY 09:24:54 CDT CPT-63989 Abd single AP View - XRAY USE ONLY 11:16:17 CDT CPT-53257 T spine AP/ Lat - XRAY USE ONLY 09:34:21 CDT CPT-32546 Chest 2V Frontal and Lat - XRAY USE ONLY 10:48:51 CDT CPT-63548 LS spine comp w obliq 13:28:00 BOTTOM CRANE OPERATOR CPT-J1040 Depo Medrol 80 mg (Methyl Prednisolone Acetate) 10:51: 28 BOTTOM CRANE OPERATOR CPT-J1100 Decadron 8mg (Dexamethasone) 10:51:28 BOTTOM CRANE OPERATOR CPT-04131 Abx/Therapy Injection 10:51:28 BOTTOM CRANE OPERATOR CPT-J1100 Decadron 8mg (Dexamethasone) 21:02:30 BOTTOM CRANE OPERATOR CPT-J1040 Depo Medrol 80 mg (Methyl Prednisolone Acetate) 21:02: 30 BOTTOM CRANE OPERATOR [id number] Event Monitor - MC Transmission 09:12:32 CDT 08/06 [id number] Event Monitor - MC review and interp 09:12:32 CDT [id number] Event Monitor - MC recording 09:12:32 CDT CPT-53300 EKG Trac and Interp 16:50:22 CDT CPT-J1030 Depo Medrol 40 mg (Methyl Prednisolone Acetate) 17:05: 54 CDT CPT-J1100 Decadron 4mg (Dexamethasone) 17:05:54 CDT CPT-14891 Abx/Therapy Injection 17:05:54 CDT CPT-J1100 Decadron 4mg (Dexamethasone) 16:55:28 CDT CPT-J1030 Depo Medrol 40 mg (Methyl Prednisolone Acetate) 16:55: 28 CDT CPT-81404 Ankle Complete - Min 3V 15:58:50 CDT CPT-80123 Knee 3V 15:58:50 CDT CPT-02858 Hip comp min 2V 15:58:50 CDT CPT-J2270 Morphine Sulfate 10 mg 14:25:44 BOTTOM CRANE OPERATOR CPT-J2550 Phenergan 12.5 mg (Promethazine) 14:25:44 BOTTOM CRANE OPERATOR CPT-73862 Abx/Therapy Injection 14:25:44 BOTTOM CRANE OPERATOR CPT-J2550 Phenergan 12.5 mg (Promethazine) 14:08:03 BOTTOM CRANE OPERATOR CPT-J2270 Morphine Sulfate 10 mg 14:08:03 BOTTOM CRANE OPERATOR CPT-57073 Bladder Scan 15:00:38 CDT CPT-TCMM Transitional Care Mgmt-Moderate 09:52:22 CDT CPT-J1030 Depo Medrol 40 mg (Methyl Prednisolone Acetate) 10:55: 18 CDT CPT-J1100 Decadron 4mg (Dexamethasone) 10:55:18 CDT CPT-00780 Abx/Therapy Injection 10:55:18 CDT CPT-J1030 Depo Medrol 40 mg (Methyl Prednisolone Acetate) 10:22: 32 CDT CPT-J1100 Decadron 4mg (Dexamethasone) 10:22:32 CDT CPT-91917 Postop F/U Visit 14:37:13 CDT CPT-81315 Ankle Complete - Min 3V 17:11:58 CDT CPT-96423 Foot comp min 3V 17:11:58 CDT CPT-44773 Bladder Scan 09:56:58 CDT CPT-57915 Postop F/U Visit 09:56:58 CDT CPT-12763 Cystoscopy 09:02:42 CDT CPT-65980 Bladder Scan 09:02:42 CDT CPT-35204 Abd single AP View 16:00:35 CDT CPT-09101 Administration single or combination vaccine inc oral 10 :15:43 CDT CPT-09749 Influenza split virus > age 3 10:15:43 CDT CPT-49035 Nail Avulsion 09:24:57 CDT CPT-OV Office Visit 11:15:41 CDT CPT-21507 Abx/Therapy Injection 10:51:30 CDT CPT-J3301 Kenalog 40 mg (Triamcinolone Acetonide) 10:25:12 CDT CPT-J1100 Decadron 4mg (Dexamethasone) 10:25:12 CDT CPT-10377 Anoscopy diagnostic 10:36:12 CDT CPT-OV Office Visit 15:34:31 CDT CPT-74426 Abx/Therapy Injection 08:21:15 BOTTOM CRANE OPERATOR CPT-J1885 Toradol 60 mg (Ketorolac) 10:46:35 BOTTOM CRANE OPERATOR CPT-OV Office Visit 19:51:16 BOTTOM CRANE OPERATOR CPT-09473 Spec Collection and Handling Fee 14:34:18 BOTTOM CRANE OPERATOR CPT-PV Prev. Care Visit 14:19:18 BOTTOM CRANE OPERATOR CPT-80960 Postop F/U Visit 14:47:51 BOTTOM CRANE OPERATOR CPT-65071 Postop F/U Visit 15:15:14 BOTTOM CRANE OPERATOR CPT-03488 Postop F/U Visit 14:41:43 CDT CPT-86911 Postop F/U Visit 15:47:46 CDT CPT-OV Office Visit 15:27:23 CDT CPT-OV Office Visit 17:20:34 CDT CPT-59535 Abx/Therapy Injection 15:05:57 CDT CPT-J1100 Decadron 8mg (Dexamethasone) 14:44:57 CDT CPT-J1040 Depo Medrol 80 mg (Methyl Prednisolone Acetate) 14:44: 57 CDT CPT-JTINJ Joint Injection 10:17:37 CDT CPT-43342 Administration 2+ single or combination vaccines inc oral 13:01:46 BOTTOM CRANE OPERATOR CPT-75823 Administration single or combination vaccine inc oral 13 :01:46 BOTTOM CRANE OPERATOR CPT-04790 Pneumovax 13:01:46 BOTTOM CRANE OPERATOR CPT-99946 Influenza split virus > age 3 13:01:46 BOTTOM CRANE OPERATOR CPT-20584 Administration single or combination vaccine inc oral 08 :56:49 CDT CPT-94161 Tdap 08:56:49 CDT
--- OUTSIDE RECORDS SUMMARY | 2017-03-22 02:07 | XMS REPORT | Clinical Summary ---
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 Anemia 285.9 Active Gab Padron MD Anemia, unspecified Conjunctivitis 372.30 Active Jillnacho Sarah APRN Conjunctivitis, unspecified Sinusitis 473.9 Active Silvestrellina Frazell FILM PAINTER Unspecified sinusitis (chronic) FOOT PAIN, RIGHT ICD-729.5 [...] 1 po BID x 10 days CEFDINIR 57086374941 No Longer Active Jillina Fracharlottel FILM PAINTER Active FLUTICASONE PROPIONATE 50 MCG/ACT SUSP 1 to 2 sprays each nostril daily 04/21 FLUTICASONE PROPIONATE 96798162687 Active Jillina Frazell FILM PAINTER Active POLYTRIM 15244-6.1 UNIT/ML-% SOLN 1 gtt to affected eye q3h x 7 days POLYMYXIN B-TRIMETHOPRIM 86060404825 Active Jillina Frazell FILM PAINTER Active CHERATUSSIN AC 100-10 MG/5ML SYRP 1 tsp by mouth every 4 hours as needed for cough GUAIFENESIN-CODEINE 23440722277 Active Gab Padron MD Active CEFTIN 500 MG TAB 1 twice a day CEFUROXIME AXETIL 14318844578 No Longer Active Gab Padron MD Active AZITHROMYCIN 250 MG TABS 2 po qd x 1 day, then 1 po qd x 4 days AZITHROMYCIN 67081510002 No Longer Active Silvestrellina Tyrel GAUTAM Active CLARITIN 10 MG TAB 1 tablet by mouth daily as needed for allergies LORATADINE 84711759041 Active Rodrigo Sarah APRN Active OXYCODONE HCL 5 MG ORAL CAPS 1 TAB PO Q HS OXYCODONE HCL 74025372138 No Longer Active Rodrigo Sarah APRN Active NIASPAN 500 MG ORAL CR-TABS 1 pill nightly x 1 week, then 2 pills nightly x 1 week, then 3 pills nightly x 1 week, then 4 pills nightly NIACIN (ANTIHYPERLIPIDEMIC) 97374864836 No Longer Active Rodrigo Sarah APRN Active NIACIN 500 MG TABS 1 pill by mouth nightly x 1 week, then 2 pills x 1 week, then 3 pills x 1 week, then 4 pills nightly - take after evening meal, with applesauce or an apple NIACIN 78159767818 No Longer Active Yolande Lindsay MD PhD Active FISH OIL 1000 MG CAPS 3 pills daily OMEGA-3 FATTY ACIDS 08761895975 Active Yolande Lindsay MD PhD Active TRIAMCINOLONE ACETONIDE 0.1 % CREA apply bid sparingly to rash TRIAMCINOLONE ACETONIDE 93943538002 Active Yolande Lindsay MD PhD Active FUROSEMIDE 20 MG TAB 1 tablet by mouth daily FUROSEMIDE 43903906676 Active Yolande Lindsay MD PhD Active LISINOPRIL 20 MG ORAL TABS 1 tab by mouth daily LISINOPRIL 65511708690 Active Gab Padron MD Active FUROSEMIDE 20 MG TABS 1 pill by mouth daily, for edema FUROSEMIDE 46234577371 No Longer Active Yolande Lindsay MD PhD Active ATORVASTATIN CALCIUM 10 MG TABS 1 pill by mouth daily, for cholesterol 09/06 ATORVASTATIN CALCIUM 16970426279 Active Yolande iLndsay MD PhD Active CALCIUM 600+D PLUS MINERALS 600-400 MG-UNIT ORAL CHEW 1 tab by mouth daily CALCIUM CARBONATE-VIT D-MIN 48366052486 No Longer Active Yolande Lindsay MD PhD Active CYCLOBENZAPRINE HCL 10 MG TABS 1 tablet by mouth three times daily as needed for muscle spasm/pain CYCLOBENZAPRINE HCL 40794206706 Active Yolande Lindsay MD PhD Active ONDANSETRON 4 MG TBDP 1 q4h PRN nausea ONDANSETRON 00688192734 Active Yolande Lindsay MD PhD Active ADULT ASPIRIN EC LOW STRENGTH 81 MG TBEC Take 1 tablet by mouth daily 2014 ASPIRIN 72263032877 No Longer Active Yolande Lindsay MD PhD Active ZOFRAN ODT 4 MG TBDP 1 pill dissolved by mouth every 4 hours if needed for nausea ONDANSETRON 02415988805 No Longer Active Yolande Lindsay MD PhD Active CEFTIN 500 MG TAB 1 twice a day CEFUROXIME AXETIL 04088755172 No Longer Active Yolande Lindsay MD PhD Active ALBUTEROL SULFATE 0.083 % NEBU SOLN one vial per nebulizer every 4-6 hours as needed ALBUTEROL SULFATE 88499006985 No Longer Active Alexis Ordaz MD Active DOXYCYCLINE HYCLATE 100 MG CAP 1 cap by mouth twice daily DOXYCYCLINE HYCLATE 81128424256 No Longer Active Yolande Lindsay MD PhD Active CYCLOBENZAPRINE HCL 10 MG TABS 1/2 - 1 tab by mouth three times daily if needed for spasms/pain CYCLOBENZAPRINE HCL 58284510664 No Longer Active Yolande Lindsay MD PhD Active TRILEPTAL 600 MG TABS Take one 1/2 tablet in Am and 1 tablet at night OXCARBAZEPINE 84926243644 Active Yolande Lindsay MD PhD Active AZITHROMYCIN 250 MG TABS 2 pills on day 1, then 1 pill daily x 4 days AZITHROMYCIN 84926844135 No Longer Active Yolande Lindsay MD PhD Active XOPENEX 1.25 MG/3ML NEBU 1 neb every 4 hours if needed for cough/congestion LEVALBUTEROL HCL 31392780590 No Longer Active Yolande Lindsay MD PhD Active DOXYCYCLINE HYCLATE 100 MG TAB 1 tab twice a day for 14 days 2013 DOXYCYCLINE HYCLATE 97271756985 No Longer Active Yolande Lindsay MD PhD Active LEVOTHYROXINE SODIUM 75 MCG TABS Take 1 tab daily LEVOTHYROXINE SODIUM 98734599775 Active Gab Padron MD Active PREVACID 30 MG CPDR Take 1 tablet by mouth daily-PRN LANSOPRAZOLE 54238809342 No Longer Active Yolande Lindsay MD PhD Active PA VITAMIN D-3 2000 UNIT CAPS 1 CAP PO DAILY CHOLECALCIFEROL 23166641449 No Longer Active Yolande Lindsay MD PhD Active CEFDINIR 300 MG CAPS by mouth twice a day CEFDINIR 81251361362 No Longer Active Gab Padron MD Active TOPAMAX 50 MG TABS 1 PO twice daily TOPIRAMATE 33803267429 Active Yolande Lindsay MD PhD Active AZITHROMYCIN 250 MG TABS 2 po qd x 1 day, then 1 po qd x 4 days AZITHROMYCIN 53546807908 No Longer Active Yolande Lindsay MD PhD Active DICLOFENAC SODIUM 75 MG TBEC 1 tablet by q 12 hours PRN headaches DICLOFENAC SODIUM 79681507257 No Longer Active Yolande Lindsay MD PhD Active FLONASE 50 MCG/ACT SUSP 1 spray each nostril am and hs FLUTICASONE PROPIONATE 98316155276 No Longer Active Todd Callaway MD Active ANUSOL-HC 25 MG SUPPOSITORY 1 rectally twice a day as needed for hemorrhoids HYDROCORTISONE JAYDEN (RECTAL) 46422343820 No Longer Active Yolande Lindsay MD PhD Active ANUSOL-HC 25 MG SUPPOSITORY 1 suppository rectally each evening as needed for anal fissure HYDROCORTISONE JAYDEN (RECTAL) 45319128453 No Longer Active LONNIE Iglesias Active VALIUM 5 MG TAB 1 po 30 minutes prior to your MRI DIAZEPAM 89226734009 No Longer Active LONNIE Iglesias Active METHOCARBAMOL 750 MG TABS 1 PO QID PRN METHOCARBAMOL 01988167877 No Longer Active Daphne Wetzel FILM PAINTER Active NITROSTAT 0.4 MG SUBL as directed NITROGLYCERIN 05030404321 No Longer Active Rodrigo Sarah FILM PAINTER Active ROBAXIN-750 750 MG TABS 2 four times a day for 3 days as needed for muscle spasm, then 1 four times a day as needed METHOCARBAMOL 49976469330 No Longer Active Rodrigo Sarah APRN Active HYDROCODONE-ACETAMINOPHEN 5-325 MG TABS 1 q 4-6 hrs prn HYDROCODONE-ACETAMINOPHEN 86633820337 No Longer Active Silvestrellina Tyrel ZAPATAN Active VERAPAMIL HCL CR 180 MG CR-TABS TAKE 1 TAB DAILY VERAPAMIL HCL 74959198563 No Longer Active Yolande Lindsay MD PhD Active BACTRIM DS 800-160 MG TAB 1 tab by mouth twice daily TRIMETHOPRIM-SULFAMETHOXAZOLE 50279477562 No Longer Active Yolande Lindsay MD PhD Active NEXIUM 40 MG PACK 1 by mouth daily ESOMEPRAZOLE MAGNESIUM 05833704846 No Longer Active Des Hines MD Active EPIPEN 2-CHARLETTE 0.3 MG/0.3ML OMARI as need for allergic reaction EPINEPHRINE 39724293203 Active Yolande Lindsay MD PhD Active NEXIUM 40 MG CPDR 1 PO Q D DAY ESOMEPRAZOLE MAGNESIUM 16454002218 No Longer Active Sadia Perry RN Active NEXIUM 40 MG PACK 1 by mouth daily NEXIUM 40 MG PACK ESOMEPRAZOLE MAGNESIUM Inactive VERAPAMIL HCL CR 180 MG CR-TABS TAKE 1 TAB DAILY VERAPAMIL HCL CR 180 MG CR-TABS VERAPAMIL HCL Inactive HYDROCODONE-ACETAMINOPHEN 5-325 MG TABS 1 q 4-6 hrs prn HYDROCODONE-ACETAMINOPHEN 5-325 MG TABS 338338 HYDROCODONE-ACETAMINOPHEN Inactive ROBAXIN-750 750 MG TABS 2 four times a day for 3 days as needed for muscle spasm, then 1 four times a day as needed ROBAXIN-750 750 MG TABS 057617 METHOCARBAMOL Inactive NITROSTAT 0.4 MG SUBL as directed NITROSTAT 0.4 MG SUBL NITROGLYCERIN Inactive METHOCARBAMOL 750 MG TABS 1 PO QID PRN METHOCARBAMOL 750 MG TABS 848262 METHOCARBAMOL Inactive VALIUM 5 MG TAB 1 po 30 minutes prior to your MRI VALIUM 5 MG TAB 934340 DIAZEPAM Inactive ANUSOL-HC 25 MG SUPPOSITORY 1 suppository rectally each evening as needed for anal fissure ANUSOL-HC 25 MG SUPPOSITORY 9198073 HYDROCORTISONE JAYDEN (RECTAL) Inactive ANUSOL-HC 25 MG SUPPOSITORY 1 rectally twice a day as needed for hemorrhoids ANUSOL-HC 25 MG SUPPOSITORY 1643012 HYDROCORTISONE JAYDEN (RECTAL) Inactive FLONASE 50 MCG/ACT SUSP 1 spray each nostril am and hs FLONASE 50 MCG/ACT SUSP FLUTICASONE PROPIONATE Inactive DICLOFENAC SODIUM 75 MG TBEC 1 tablet by q 12 hours PRN headaches DICLOFENAC SODIUM 75 MG TBEC 225175 DICLOFENAC SODIUM Inactive PA VITAMIN D-3 2000 UNIT CAPS 1 CAP PO DAILY PA VITAMIN D-3 2000 UNIT CAPS CHOLECALCIFEROL Inactive PREVACID 30 MG CPDR Take 1 tablet by mouth daily-PRN PREVACID 30 MG CPDR 340521 LANSOPRAZOLE Inactive DOXYCYCLINE HYCLATE 100 MG TAB 1 tab twice a day for 14 days 2013 DOXYCYCLINE HYCLATE 100 MG TAB 8473907 DOXYCYCLINE HYCLATE Inactive XOPENEX 1.25 MG/3ML NEBU 1 neb every 4 hours if needed for cough/congestion XOPENEX 1.25 MG/3ML NEBU 428879 LEVALBUTEROL HCL Inactive CYCLOBENZAPRINE HCL 10 MG TABS 1/2 - 1 tab by mouth three times daily if needed for spasms/pain CYCLOBENZAPRINE HCL 10 MG TABS 393957 CYCLOBENZAPRINE HCL Inactive ALBUTEROL SULFATE 0.083 % NEBU SOLN one vial per nebulizer every 4-6 hours as needed ALBUTEROL SULFATE 0.083 % NEBU SOLN 564841 ALBUTEROL SULFATE Inactive CEFTIN 500 MG TAB 1 twice a day CEFTIN 500 MG TAB 873916 CEFUROXIME AXETIL Inactive ZOFRAN ODT 4 MG TBDP 1 pill dissolved by mouth every 4 hours if needed for nausea ZOFRAN ODT 4 MG TBDP 525493 ONDANSETRON Inactive ADULT ASPIRIN EC LOW STRENGTH 81 MG TBEC Take 1 tablet by mouth daily 2014 ADULT ASPIRIN EC LOW STRENGTH 81 MG TBEC 421749 ASPIRIN Inactive CALCIUM 600+D PLUS MINERALS 600-400 [...] or an apple NIACIN 500 MG TABS 705860 NIACIN Inactive NIASPAN 500 MG ORAL CR-TABS 1 pill nightly x 1 week, then 2 pills nightly x 1 week, then 3 pills nightly x 1 week, then 4 pills nightly NIASPAN 500 MG ORAL CR-TABS NIACIN (ANTIHYPERLIPIDEMIC) Inactive OXYCODONE HCL 5 MG ORAL CAPS 1 TAB PO Q HS OXYCODONE HCL 5 MG ORAL CAPS 4592821 OXYCODONE HCL Inactive BACTRIM DS 800-160 MG TAB 1 tab by mouth twice daily BACTRIM DS 800-160 MG TAB 847970 TRIMETHOPRIM-SULFAMETHOXAZOLE Inactive AZITHROMYCIN 250 MG TABS 2 po qd x 1 day, then 1 po qd x 4 days AZITHROMYCIN 250 MG TABS 6948444 AZITHROMYCIN Inactive CEFDINIR 300 MG CAPS by mouth twice a day CEFDINIR 300 MG CAPS 20020708 CEFDINIR Inactive AZITHROMYCIN 250 MG TABS 2 pills on day 1, then 1 pill daily x 4 days AZITHROMYCIN 250 MG TABS 3295877 AZITHROMYCIN Inactive DOXYCYCLINE HYCLATE 100 MG CAP 1 cap by mouth twice daily DOXYCYCLINE HYCLATE 100 MG CAP 0866817 DOXYCYCLINE HYCLATE Inactive FUROSEMIDE 20 MG TABS 1 pill by mouth daily, for edema FUROSEMIDE 20 MG TABS 846702 FUROSEMIDE Inactive AZITHROMYCIN 250 MG TABS 2 po qd x 1 day, then 1 po qd x 4 days AZITHROMYCIN 250 MG TABS 6451795 AZITHROMYCIN Inactive CEFTIN 500 MG TAB 1 twice a day CEFTIN 500 MG TAB 362568 CEFUROXIME AXETIL Inactive CEFDINIR 300 MG CAPS 1 po BID x 10 days CEFDINIR 300 MG CAPS 091772 CEFDINIR Inactive Immunizations Vaccine Administration Date Value Standard Description Seasonal influenza vaccine, injectable, containing preservative, for > 3 years old (Afluria, FluLaval, Fluzone, Fluvirin, Fluarix, Agriflu(>=18 yo)) Fluzone (>3 yrs.) [HRP623] Influenza, seasonal, injectable influenza immunization (Flu Vax) has been administered Influenza - Unspecified Formulation [CVX88] influenza virus vaccine, unspecified formulation Seasonal influenza vaccine, injectable, containing preservative, for > 3 years old (Afluria, FluLaval, Fluzone, Fluvirin, Fluarix, Agriflu(>=18 yo)) Fluzone (>3 yrs.) [TVL427] Influenza, seasonal, injectable pneumococcal immunization administered Pneumovax 23 [CVX33] pneumococcal polysaccharide vaccine, 23 valent dT (Diphtheria and Tetanus) booster given given Td(adult) unspecified formulation Boostrix (Tetanus toxoid, reduced diphtheria toxoid and acellular pertussis vaccine, adsorbed), booster Boostrix [YDC652] tetanus toxoid, reduced diphtheria toxoid, and acellular [...] Panel - Chemistry sodium, serum 145 mmol/L 164-316 6663/06/22 potassium, serum 3.9 mmol/L 3.5-5.2 chloride, serum 109 mmol/L 98-107 carbon dioxide, venous blood 23.4 mmol/L 21.0-32.0 blood glucose 92 mg/dL 65-110 calcium, serum 8.2 mg/dL 8.5-10.1 urea nitrogen, blood 24 mg/dL 7-18 creatinine, serum 1.30 mg/dL 0.60-1.30 Lab Report: [facility] Advanced Lipid and Inlammation Panel /50210 - Chemistry cholesterol, serum 198 mg/dL 706-021 2405/04/30 HDL cholesterol, serum 65 mg/dL > OR=46 triglyceride, serum, fasting 82 mg/dL LDL cholesterol, serum 117 mg/dL cholesterol/HDL ratio, serum 3.0 calc < OR=5.0 cholesterol, serum 148 mg/dL 813-840 2286/09/02 HDL cholesterol, serum 55 mg/dL > OR=46 [...] (L) - Chemistry sodium, serum 145 mmol/L 951-019 5880/09/02 potassium, serum 4.6 mmol/L 3.5-5.2 chloride, serum [...] 51 mg/dL 30-200 cholesterol, serum 173 mg/dL 550-887 4860/04/28 HDL cholesterol, serum 63 mg/dL 32-96 LDL [...] mg/dL Encounters Code Encounter Date Provider Facility CPT-03589 Level 3 Est. Patient 11:02:19 INCIDENT ANALYST Gab Padron MD [facility] CPT-53177 Level 4 Est. Patient 22:24:31 INCIDENT ANALYST Gab Padron MD [facility] CPT-54331 Level 3 Est. Patient 18:33:46 INCIDENT ANALYST Gab Padron MD [facility] CPT-07700 Level 3 Est. Patient 16:19:11 CDT Yolande Lindsay MD [facility] CPT-31876 Level 3 Est. Patient 18:59:14 CDT Yolande Lindsay MD PhD [facility] CPT-51677 Level 4 Est. Patient 21:29:26 CDT Yolande Lindsay MD [facility] CPT-59395 Level 3 Est. Patient 07:37:45 CDT Yolande Lindsay MD [facility]-66470 Level 3 Est. Patient 17:03:46 CDT Yolande Lindsay MD [facility]-39932 Level 4 Est. Patient 20:02:13 INCIDENT ANALYST Yolande Lindsay MD PhD [facility] CPT-09880 Level 3 Est. Patient 16:02:07 INCIDENT ANALYST Alexis Ordaz MD [facility] CPT-52799 Level 3 Est. Patient 12:41:24 INCIDENT ANALYST Yolande Lindsay MD PhD [facility] CPT-72939 Level 3 Est. Patient 15:41:20 INCIDENT ANALYST Yolande Lindsay MD [facility] CPT-02989 Level 3 Est. Patient 13:20:02 INCIDENT ANALYST Yolande Lindsay MD PhD [facility] CPT-87145 Level 3 Est. Patient 15:00:38 CDT Jared Og MD [facility]-27562 Level 3 Est. Patient 10:22:32 CDT Yolande Lindsay MD [facility]-62153 Level 3 Est. Patient 17:12:58 CDT Yolande Lindsay MD [facility]-43469 Level 4 Est. Patient 13:30:58 CDT Yolande Lindsay MD [facility] CPT-84923 Level 4 New Patient 09:02:42 CDT Jared Og MD [facility]-24607 Level 3 Est. Patient 08:19:07 CDT Yolande Lindsay MD [facility]-85271 Level 3 Est. Patient 12:00:13 INCIDENT ANALYST Gab Padron MD [facility]-94028 Level 3 Est. Patient 16:15:23 INCIDENT ANALYST Yolande Lindsay MD [facility]-36346 Level 2 Est. Patient 19:47:15 CDT Yolande Lindsay MD [facility]-93434 Level 3 Est. Patient 21:38:31 CDT Yolande Lindsay MD [facility] CPT-66046 Level 3 Est. Patient 10:25:12 CDT Adiel PERAZA [facility] CPT-87775 Level 4 Est. Patient 10:51:58 CDT Yolande Lindsay MD [facility]-10403 Level 3 Est. Patient 14:04:55 INCIDENT ANALYST Rodrigo Sarah [facility]-87229 Level 3 Est. Patient 10:46:35 INCIDENT ANALYST Rodrigo Sarah [facility]-08352 Level 3 Est. Patient 14:24:37 INCIDENT ANALYST Yolande Lindsay MD [facility] CPT-59323 Level 3 Est. Patient 17:41:58 INCIDENT ANALYST Yolande Lindsay MD [facility] CPT-98585 Level 2 Est. Patient 22:01:41 INCIDENT ANALYST Rodrigo Sarah [facility] CPT-75778 Level 2 Est. Patient 22:01:11 INCIDENT ANALYST Rodrigo Sarah [facility] CPT-49328 Level 3 Est. Patient 10:12:29 INCIDENT ANALYST Rodrigo Sarah [facility] CPT-00515 Level 3 Est. Patient 11:05:44 CDT Alexis Ordaz MD [facility] CPT-63241 Level 3 Est. Patient 14:57:20 CDT Yolande Lindsay MD [facility] CPT-47970 Level 3 Est. Patient 14:40:57 CDT Yolande Lindsay MD [facility] CPT-11537 Level 3 Est. Patient 20:55:40 CDT Yolande Lindsay MD [facility] CPT-04965 Level 3 Est. Patient 12:42:38 INCIDENT ANALYST Yolande Lindsay MD [facility]-37879 Level 3 Est. Patient 11:54:49 INCIDENT ANALYST Des Hines MD [facility] CPT-65792 Level 3 Est. Patient 17:06:38 CDT Dewayne PREAZA [facility] Procedures Code Procedure Name Date Entry Date Standard Description CPT-98487 LS spine comp w obliq 13:28:00 INCIDENT ANALYST CPT-J1040 Depo Medrol 80 mg (Methyl Prednisolone Acetate) 10:51: 28 INCIDENT ANALYST CPT-J1100 Decadron 8mg (Dexamethasone) 10:51:28 INCIDENT ANALYST CPT-70119 Abx/Therapy Injection 10:51:28 INCIDENT ANALYST [id number] Event Monitor - MC Transmission 09:12:32 CDT 08/06 [id number] Event Monitor - MC review and interp 09:12:32 CDT [id number] Event Monitor - MC recording 09:12:32 CDT CPT-65787 EKG Trac and Interp 16:50:22 CDT CPT-J1030 Depo Medrol 40 mg (Methyl Prednisolone Acetate) 17:05: 54 CDT CPT-J1100 Decadron 4mg (Dexamethasone) 17:05:54 CDT CPT-03059 Abx/Therapy Injection 17:05:54 CDT CPT-J1100 Decadron 4mg (Dexamethasone) 16:55:28 CDT CPT-J1030 Depo Medrol 40 mg (Methyl Prednisolone Acetate) 16:55: 28 CDT CPT-04381 Ankle Complete - Min 3V 15:58:50 CDT CPT-71627 Knee 3V 15:58:50 CDT CPT-50262 Hip comp min 2V 15:58:50 CDT CPT-J2270 Morphine Sulfate 10 mg 14:25:44 INCIDENT ANALYST CPT-J2550 Phenergan 12.5 mg (Promethazine) 14:25:44 INCIDENT ANALYST CPT-88458 Abx/Therapy Injection 14:25:44 INCIDENT ANALYST CPT-J2550 Phenergan 12.5 mg (Promethazine) 14:08:03 INCIDENT ANALYST CPT-J2270 Morphine Sulfate 10 mg 14:08:03 INCIDENT ANALYST CPT-57418 Bladder Scan 15:00:38 CDT CPT-TCMM Transitional Care Mgmt-Moderate 09:52:22 CDT CPT-J1030 Depo Medrol 40 mg (Methyl Prednisolone Acetate) 10:55: 18 CDT CPT-J1100 Decadron 4mg (Dexamethasone) 10:55:18 CDT CPT-51313 Abx/Therapy Injection 10:55:18 CDT CPT-J1030 Depo Medrol 40 mg (Methyl Prednisolone Acetate) 10:22: 32 CDT CPT-J1100 Decadron 4mg (Dexamethasone) 10:22:32 CDT CPT-03942 Postop F/U Visit 14:37:13 CDT CPT-93799 Ankle Complete - Min 3V 17:11:58 CDT CPT-96901 Foot comp min 3V 17:11:58 CDT CPT-71123 Bladder Scan 09:56:58 CDT CPT-21527 Postop F/U Visit 09:56:58 CDT CPT-56081 Cystoscopy 09:02:42 CDT CPT-05767 Bladder Scan 09:02:42 CDT CPT-30865 Abd single AP View 16:00:35 CDT CPT-85008 Administration single or combination vaccine inc oral 10 :15:43 CDT CPT-43344 Influenza split virus > age 3 10:15:43 CDT CPT-70550 Nail Avulsion 09:24:57 CDT CPT-OV Office Visit 11:15:41 CDT CPT-59592 Abx/Therapy Injection 10:51:30 CDT CPT-J3301 Kenalog 40 mg (Triamcinolone Acetonide) 10:25:12 CDT CPT-J1100 Decadron 4mg (Dexamethasone) 10:25:12 CDT CPT-96099 Anoscopy diagnostic 10:36:12 CDT CPT-OV Office Visit 15:34:31 CDT CPT-15308 Abx/Therapy Injection 08:21:15 INCIDENT ANALYST CPT-J1885 Toradol 60 mg (Ketorolac) 10:46:35 INCIDENT ANALYST CPT-OV Office Visit 19:51:16 INCIDENT ANALYST CPT-67535 Spec Collection and Handling Fee 14:34:18 INCIDENT ANALYST CPT-PV Prev. Care Visit 14:19:18 INCIDENT ANALYST CPT-43617 Postop F/U Visit 14:47:51 INCIDENT ANALYST CPT-05521 Postop F/U Visit 15:15:14 INCIDENT ANALYST CPT-48187 Postop F/U Visit 14:41:43 CDT CPT-78169 Postop F/U Visit 15:47:46 CDT CPT-OV Office Visit 15:27:23 CDT CPT-OV Office Visit 17:20:34 CDT CPT-37710 Abx/Therapy Injection 15:05:57 CDT CPT-J1100 Decadron 8mg (Dexamethasone) 14:44:57 CDT CPT-J1040 Depo Medrol 80 mg (Methyl Prednisolone Acetate) 14:44: 57 CDT CPT-JTINJ Joint Injection 10:17:37 CDT CPT-84215 Administration 2+ single or combination vaccines inc oral 13:01:46 INCIDENT ANALYST CPT-27891 Administration single or combination vaccine inc oral 13 :01:46 INCIDENT ANALYST CPT-50533 Pneumovax 13:01:46 INCIDENT ANALYST CPT-14137 Influenza split virus > age 3 13:01:46 INCIDENT ANALYST CPT-36832 Administration single or combination vaccine inc oral 08 :56:49 CDT CPT-65575 Tdap 08:56:49 CDT
--- OUTSIDE RECORDS SUMMARY | 2017-03-22 02:10 | XMS REPORT | Clinical Summary ---
Author Author Admin, MARGRET Organization [place] Address Unknown Phone Unavailable Allergies, Adverse Reactions, Alerts Allergy Name Reaction Description Start Date Severity Status Provider VALENTIN Critical Active Rodrigo Montemayorl SLOT FLOORMAN CHLORHEXIDINE GLUCONATE tongue and gums swollen Critical Active Hoa Kabaford RMA NORFLEX Rash Critical Active Rowenaina Frazell SLOT FLOORMAN TRAZODONE HCL sees things Critical Active Dewayne [...] infarction, hx of 412 Active Hoa Otot [facility] Old myocardial infarction Pelvic pain 789.09 Active Yolande Lindsay MD PhD Abdominal pain, other specified site; multiple sites Edema 782.3 Active Yolande Lindsay MD PhD Edema Rash 782.1 Active Yolande Lindsay MD PhD Rash and other nonspecific skin eruption Back pain, lumbar 724.2 Active Gab Padron MD Lumbago Cough 786.2 Active Jillina Tyrel SLOT FLOORMAN Cough 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 Jillina Frazellilian ZAPATAN 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 Anemia 285.9 Active Gab Padron MD Anemia, unspecified Conjunctivitis 372.30 Active Jillnacho Sarah APRN Conjunctivitis, unspecified Sinusitis 473.9 Active Jillina Frazell SLOT FLOORMAN Unspecified sinusitis (chronic) FOOT PAIN, RIGHT ICD-729.5 [...] MD PhD Flank pain ICD-789.09 Inactive Yolande Lidnsay MD PhD Sinusitis ICD-461.9 Inactive Yolande Lindsay MD PhD Abdominal pain, LLQ ICD-789.04 Inactive Yolande Lindsay MD PhD Accidental fall ICD-E888.9 Inactive Yolande Lindsay MD PhD Knee sprain, left ICD-844.9 Inactive Yolande Lindsay MD PhD Ankle sprain, left ICD-845.00 Inactive Yolande Lindsay MD PhD Hip pain, left ICD-719.45 Inactive Yolnade Lindsay MD PhD Medication List Medication Instructions Start Date Stop Date Generic Name NDC Status Provider Patient Instruction LEVOTHYROXINE SODIUM 75 MCG TABS Take 1 tab daily LEVOTHYROXINE SODIUM 82871135830 No Longer Active Mariana FLEMING Active SYNTHROID 88 MCG ORAL TABS Take one by mouth daily LEVOTHYROXINE SODIUM 46643859723 Active Mariana FLEMING Active CHERATUSSIN AC 100-10 MG/5ML SYRP 1 tsp by mouth every 4 hours as needed for cough GUAIFENESIN-CODEINE 85645806189 No Longer Active Gab Padron MD Active POLYTRIM 77029-6.1 UNIT/ML-% SOLN 1 gtt to affected eye q3h x 7 days POLYMYXIN B-TRIMETHOPRIM 45787895917 No Longer Active Gab Padron MD Active FLUTICASONE PROPIONATE 50 MCG/ACT SUSP 1 to 2 sprays each nostril daily 04/21 FLUTICASONE PROPIONATE 37236743074 No Longer Active Gab Padron MD Active TRILEPTAL 600 MG TABS Take one 1 tablet in Am and 1 tablet at night OXCARBAZEPINE 60437152927 Active Gab Padron MD Active CEFDINIR 300 MG CAPS 1 po BID x 10 days CEFDINIR 57043545011 No Longer Active Rodrigo Sarah APRN Active CEFTIN 500 MG TAB 1 twice a day CEFUROXIME AXETIL 28417418671 No Longer Active Gab Padron MD Active AZITHROMYCIN 250 MG TABS 2 po qd x 1 day, then 1 po qd x 4 days AZITHROMYCIN 65073802898 No Longer Active Rodrigo Sarah APRN Active CLARITIN 10 MG TAB 1 tablet by mouth daily as needed for allergies LORATADINE 94217172953 Active Rodrigo Sarah APRN Active OXYCODONE HCL 5 MG ORAL CAPS 1 TAB PO Q HS OXYCODONE HCL 70640042716 No Longer Active Rodrigo Sarah APRN Active NIASPAN 500 MG ORAL CR-TABS 1 pill nightly x 1 week, then 2 pills nightly x 1 week, then 3 pills nightly x 1 week, then 4 pills nightly NIACIN (ANTIHYPERLIPIDEMIC) 37364207585 No Longer Active Rodrigo Sarah APRN Active NIACIN 500 MG TABS 1 pill by mouth nightly x 1 week, then 2 pills x 1 week, then 3 pills x 1 week, then 4 pills nightly - take after evening meal, with applesauce or an apple NIACIN 01342588091 No Longer Active Yolande Lindsay MD PhD Active FISH OIL 1000 MG CAPS 3 pills daily OMEGA-3 FATTY ACIDS 79280164572 Active Yolande Lindsay MD PhD Active TRIAMCINOLONE ACETONIDE 0.1 % CREA apply bid sparingly to rash TRIAMCINOLONE ACETONIDE 04799718055 Active Yolande Lindsay MD PhD Active FUROSEMIDE 20 MG TAB 1 tablet by mouth daily FUROSEMIDE 11968354120 Active Yolande Lindsay MD PhD Active LISINOPRIL 20 MG ORAL TABS 1 tab by mouth daily LISINOPRIL 99724473019 Active Gab Padron MD Active FUROSEMIDE 20 MG TABS 1 pill by mouth daily, for edema FUROSEMIDE 82743039006 No Longer Active Yolande Lindsay MD PhD Active ATORVASTATIN CALCIUM 10 MG TABS 1 pill by mouth daily, for cholesterol 09/06 ATORVASTATIN CALCIUM 26184618702 Active Yolande Lindsay MD PhD Active CALCIUM 600+D PLUS MINERALS 600-400 MG-UNIT ORAL CHEW 1 tab by mouth daily CALCIUM CARBONATE-VIT D-MIN 34471482250 No Longer Active Yolande Lindsay MD PhD Active CYCLOBENZAPRINE HCL 10 MG TABS 1 tablet by mouth three times daily as needed for muscle spasm/pain CYCLOBENZAPRINE HCL 87785350844 Active Yolande Lindsay MD PhD Active ONDANSETRON 4 MG TBDP 1 q4h PRN nausea ONDANSETRON 76711378291 Active Yolande Lindsay MD PhD Active ADULT ASPIRIN EC LOW STRENGTH 81 MG TBEC Take 1 tablet by mouth daily 2014 ASPIRIN 16797072656 No Longer Active Yolande Lindsay MD PhD Active ZOFRAN ODT 4 MG TBDP 1 pill dissolved by mouth every 4 hours if needed for nausea ONDANSETRON 88399374518 No Longer Active Yolande Lindsay MD PhD Active CEFTIN 500 MG TAB 1 twice a day CEFUROXIME AXETIL 51220122832 No Longer Active Yolande Lindsay MD PhD Active ALBUTEROL SULFATE 0.083 % NEB SOLN one vial per nebulizer every 4-6 hours as needed ALBUTEROL SULFATE 13070301517 No Longer Active Alexis Ordaz MD Active DOXYCYCLINE HYCLATE 100 MG CAP 1 cap by mouth twice daily DOXYCYCLINE HYCLATE 95384680353 No Longer Active Yolande Lindsay MD PhD Active CYCLOBENZAPRINE HCL 10 MG TABS 1/2 - 1 tab by mouth three times daily if needed for spasms/pain CYCLOBENZAPRINE HCL 05529681243 No Longer Active Yolande Lindsay MD PhD Active AZITHROMYCIN 250 MG TABS 2 pills on day 1, then 1 pill daily x 4 days AZITHROMYCIN 65753824446 No Longer Active Yolande Lindsay MD PhD Active XOPENEX 1.25 MG/3ML NEBU 1 neb every 4 hours if needed for cough/congestion LEVALBUTEROL HCL 16675084525 No Longer Active Yolande Lindsay MD PhD Active DOXYCYCLINE HYCLATE 100 MG TAB 1 tab twice a day for 14 days 2013 DOXYCYCLINE HYCLATE 33597561256 No Longer Active Yolande Lindsay MD PhD Active PREVACID 30 MG CPDR Take 1 tablet by mouth daily-PRN LANSOPRAZOLE 61479678260 No Longer Active Yolande Lindsay MD PhD Active PA VITAMIN D-3 2000 UNIT CAPS 1 CAP PO DAILY CHOLECALCIFEROL 32218257915 No Longer Active Yolande Lindsay MD PhD Active CEFDINIR 300 MG CAPS by mouth twice a day CEFDINIR 82568822367 No Longer Active Gab Padron MD Active TOPAMAX 50 MG TABS 1 PO twice daily TOPIRAMATE 02749218725 Active Yolande Lindsay MD PhD Active AZITHROMYCIN 250 MG TABS 2 po qd x 1 day, then 1 po qd x 4 days AZITHROMYCIN 89572849940 No Longer Active Yolande Lindsay MD PhD Active DICLOFENAC SODIUM 75 MG TBEC 1 tablet by q 12 hours PRN headaches DICLOFENAC SODIUM 72980341556 No Longer Active Yolande Lindsay MD PhD Active FLONASE 50 MCG/ACT SUSP 1 spray each nostril am and hs FLUTICASONE PROPIONATE 59228323434 No Longer Active Todd Callaway MD Active ANUSOL-HC 25 MG SUPPOSITORY 1 rectally twice a day as needed for hemorrhoids HYDROCORTISONE JAYDEN (RECTAL) 20309522892 No Longer Active Yolande Lindsay MD PhD Active ANUSOL-HC 25 MG SUPPOSITORY 1 suppository rectally each evening as needed for anal fissure HYDROCORTISONE JAYDEN (RECTAL) 06275223141 No Longer Active Bozena Coleman EDELMIRAFeliciano Active VALIUM 5 MG TAB 1 po 30 minutes prior to your MRI DIAZEPAM 66114085293 No Longer Active LONNIE Iglesias Active METHOCARBAMOL 750 MG TABS 1 PO QID PRN METHOCARBAMOL 88759153602 No Longer Active Daphne Wetzel SLOT FLOORMAN Active NITROSTAT 0.4 MG SUBL as directed NITROGLYCERIN 37647348592 No Longer Active Rodrigo Sarah SLOT FLOORMAN Active ROBAXIN-750 750 MG TABS 2 four times a day for 3 days as needed for muscle spasm, then 1 four times a day as needed METHOCARBAMOL 58655559279 No Longer Active Rodrigo Sarah APRN Active HYDROCODONE-ACETAMINOPHEN 5-325 MG TABS 1 q 4-6 hrs prn HYDROCODONE-ACETAMINOPHEN 62603421226 No Longer Active Silvestrellnacho Sarah APRN Active VERAPAMIL HCL CR 180 MG CR-TABS TAKE 1 TAB DAILY VERAPAMIL HCL 26680823865 No Longer Active Yolande Lindsay MD PhD Active BACTRIM DS 800-160 MG TAB 1 tab by mouth twice daily TRIMETHOPRIM-SULFAMETHOXAZOLE 23128122533 No Longer Active Yolande Lindsay MD PhD Active NEXIUM 40 MG PACK 1 by mouth daily ESOMEPRAZOLE MAGNESIUM 06423796321 No Longer Active Des Hines MD Active EPIPEN 2-CHARLETTE 0.3 MG/0.3ML OMARI as need for allergic reaction EPINEPHRINE 89548140132 Active Yolande Lindsay MD PhD Active NEXIUM 40 MG CPDR 1 PO Q D DAY ESOMEPRAZOLE MAGNESIUM 44928250252 No Longer Active Sadia Perry RN Active NEXIUM 40 MG PACK 1 by mouth daily NEXIUM 40 MG PACK ESOMEPRAZOLE MAGNESIUM Inactive VERAPAMIL HCL CR 180 MG CR-TABS TAKE 1 TAB DAILY VERAPAMIL HCL CR 180 MG CR-TABS VERAPAMIL HCL Inactive HYDROCODONE-ACETAMINOPHEN 5-325 MG TABS 1 q 4-6 hrs prn HYDROCODONE-ACETAMINOPHEN 5-325 MG TABS 088833 HYDROCODONE-ACETAMINOPHEN Inactive ROBAXIN-750 750 MG TABS 2 four times a day for 3 days as needed for muscle spasm, then 1 four times a day as needed ROBAXIN-750 750 MG TABS 838512 METHOCARBAMOL Inactive NITROSTAT 0.4 MG SUBL as directed NITROSTAT 0.4 MG SUBL NITROGLYCERIN Inactive METHOCARBAMOL 750 MG TABS 1 PO QID PRN METHOCARBAMOL 750 MG TABS 518757 METHOCARBAMOL Inactive VALIUM 5 MG TAB 1 po 30 minutes prior to your MRI VALIUM 5 MG TAB 981565 DIAZEPAM Inactive ANUSOL-HC 25 MG SUPPOSITORY 1 suppository rectally each evening as needed for anal fissure ANUSOL-HC 25 MG SUPPOSITORY 6631800 HYDROCORTISONE JAYDEN (RECTAL) Inactive ANUSOL-HC 25 MG SUPPOSITORY 1 rectally twice a day as needed for hemorrhoids ANUSOL-HC 25 MG SUPPOSITORY 0920011 HYDROCORTISONE JAYDEN (RECTAL) Inactive FLONASE 50 MCG/ACT SUSP 1 spray each nostril am and hs FLONASE 50 MCG/ACT SUSP FLUTICASONE PROPIONATE Inactive DICLOFENAC SODIUM 75 MG TBEC 1 tablet by q 12 hours PRN headaches DICLOFENAC SODIUM 75 MG TBEC 878530 DICLOFENAC SODIUM Inactive PA VITAMIN D-3 2000 UNIT CAPS 1 CAP PO DAILY PA VITAMIN D-3 2000 UNIT CAPS CHOLECALCIFEROL Inactive PREVACID 30 MG CPDR Take 1 tablet by mouth daily-PRN PREVACID 30 MG CPDR 597292 LANSOPRAZOLE Inactive DOXYCYCLINE HYCLATE 100 MG TAB 1 tab twice a day for 14 days 2013 DOXYCYCLINE HYCLATE 100 MG TAB 0133296 DOXYCYCLINE HYCLATE Inactive XOPENEX 1.25 MG/3ML NEBU 1 neb every 4 hours if needed for cough/congestion XOPENEX 1.25 MG/3ML NEBU 143033 LEVALBUTEROL HCL Inactive CYCLOBENZAPRINE HCL 10 MG TABS 1/2 - 1 tab by mouth three times daily if needed for spasms/pain CYCLOBENZAPRINE HCL 10 MG TABS 342428 CYCLOBENZAPRINE HCL Inactive ALBUTEROL SULFATE 0.083 % NEBU SOLN one vial per nebulizer every 4-6 hours as needed ALBUTEROL SULFATE 0.083 % NEBU SOLN 473542 ALBUTEROL SULFATE Inactive CEFTIN 500 MG TAB 1 twice a day CEFTIN 500 MG TAB 669958 CEFUROXIME AXETIL Inactive ZOFRAN ODT 4 MG TBDP 1 pill dissolved by mouth every 4 hours if needed for nausea ZOFRAN ODT 4 MG TBDP 669812 ONDANSETRON Inactive ADULT ASPIRIN EC LOW STRENGTH 81 MG TBEC Take 1 tablet by mouth daily 2014 ADULT ASPIRIN EC LOW STRENGTH 81 MG TBEC 273249 ASPIRIN Inactive CALCIUM 600+D PLUS MINERALS 600-400 [...] or an apple NIACIN 500 MG TABS 212176 NIACIN Inactive NIASPAN 500 MG ORAL CR-TABS 1 pill nightly x 1 week, then 2 pills nightly x 1 week, then 3 pills nightly x 1 week, then 4 pills nightly NIASPAN 500 MG ORAL CR-TABS NIACIN (ANTIHYPERLIPIDEMIC) Inactive OXYCODONE HCL 5 MG ORAL CAPS 1 TAB PO Q HS OXYCODONE HCL 5 MG ORAL CAPS 8965550 OXYCODONE HCL Inactive FLUTICASONE PROPIONATE 50 MCG/ACT SUSP 1 to 2 sprays each nostril daily 04/21 FLUTICASONE PROPIONATE 50 MCG/ACT SUSP 449927 FLUTICASONE PROPIONATE Inactive POLYTRIM 63782-0.1 UNIT/ML-% SOLN 1 gtt to affected eye q3h x 7 days POLYTRIM 76078-7.1 UNIT/ML-% SOLN 375198 POLYMYXIN B- TRIMETHOPRIM Inactive CHERATUSSIN AC 100-10 MG/5ML SYRP 1 tsp by mouth every 4 hours as needed for cough CHERATUSSIN AC 100-10 MG/5ML SYRP 028319 GUAIFENESIN-CODEINE Inactive LEVOTHYROXINE SODIUM 75 MCG TABS Take 1 tab daily LEVOTHYROXINE SODIUM 75 MCG TABS 304996 LEVOTHYROXINE SODIUM Inactive BACTRIM DS 800-160 MG TAB 1 tab by mouth twice daily BACTRIM DS 800-160 MG TAB 203349 TRIMETHOPRIM-SULFAMETHOXAZOLE Inactive AZITHROMYCIN 250 MG TABS 2 po qd x 1 day, then 1 po qd x 4 days AZITHROMYCIN 250 MG TABS 5567604 AZITHROMYCIN Inactive CEFDINIR 300 MG CAPS by mouth twice a day CEFDINIR 300 MG CAPS 572768 CEFDINIR Inactive AZITHROMYCIN 250 MG TABS 2 pills on day 1, then 1 pill daily x 4 days AZITHROMYCIN 250 MG TABS 5142343 AZITHROMYCIN Inactive DOXYCYCLINE HYCLATE 100 MG CAP 1 cap by mouth twice daily DOXYCYCLINE HYCLATE 100 MG CAP 6822729 DOXYCYCLINE HYCLATE Inactive FUROSEMIDE 20 MG TABS 1 pill by mouth daily, for edema FUROSEMIDE 20 MG TABS 027889 FUROSEMIDE Inactive AZITHROMYCIN 250 MG TABS 2 po qd x 1 day, then 1 po qd x 4 days AZITHROMYCIN 250 MG TABS 5991221 AZITHROMYCIN Inactive CEFTIN 500 MG TAB 1 twice a day CEFTIN 500 MG TAB 387033 CEFUROXIME AXETIL Inactive CEFDINIR 300 MG CAPS 1 po BID x 10 days CEFDINIR 300 MG CAPS 826956 CEFDINIR Inactive Immunizations Vaccine Administration Date Value Standard Description Seasonal influenza vaccine, injectable, containing preservative, for > 3 years old (Afluria, FluLaval, Fluzone, Fluvirin, Fluarix, Agriflu(>=18 yo)) Fluzone (>3 yrs.) [YPT620] Influenza, seasonal, injectable influenza immunization (Flu Vax) has been administered Influenza - Unspecified Formulation [CVX88] influenza virus vaccine, unspecified formulation pneumococcal immunization administered Pneumovax 23 [CVX33] pneumococcal polysaccharide vaccine, 23 valent Seasonal influenza vaccine, injectable, containing preservative, for > 3 years old (Afluria, FluLaval, Fluzone, Fluvirin, Fluarix, Agriflu(>=18 yo)) Fluzone (>3 yrs.) [HFE680] Influenza, seasonal, injectable dT (Diphtheria and Tetanus) booster given given Td(adult) unspecified formulation Boostrix (Tetanus toxoid, reduced diphtheria toxoid and acellular pertussis vaccine, adsorbed), booster Boostrix [OJX763] tetanus toxoid, reduced diphtheria toxoid, and acellular [...] Panel - Chemistry sodium, serum 145 mmol/L 105-416 7788/06/22 potassium, serum 3.9 mmol/L 3.5-5.2 chloride, serum 109 mmol/L 98-107 carbon dioxide, venous blood 23.4 mmol/L 21.0-32.0 blood glucose 92 mg/dL 65-110 calcium, serum 8.2 mg/dL 8.5-10.1 urea nitrogen, blood 24 mg/dL 7-18 creatinine, serum 1.30 mg/dL 0.60-1.30 Lab Report: [facility] Advanced Lipid and Inlammation Panel /97816 - Chemistry cholesterol, serum 198 mg/dL 132-947 0691/04/30 HDL cholesterol, serum 65 mg/dL > OR=46 triglyceride, serum, fasting 82 mg/dL LDL cholesterol, serum 117 mg/dL cholesterol/HDL ratio, serum 3.0 calc < OR=5.0 cholesterol, serum 148 mg/dL 484-255 6995/09/02 HDL cholesterol, serum 55 mg/dL > OR=46 [...] (L) - Chemistry sodium, serum 145 mmol/L 649-308 1130/09/02 potassium, serum 4.6 mmol/L 3.5-5.2 chloride, serum [...] 51 mg/dL 30-200 cholesterol, serum 173 mg/dL 473-397 4122/04/28 HDL cholesterol, serum 63 mg/dL 32-96 LDL [...] mg/dL Encounters Code Encounter Date Provider Facility CPT-64623 Level 4 Est. Patient 21:02:30 LABOR[facility]INE[facility] Gab Padron MD [facility]-81729 Level 3 Est. Patient 11:02:19 LABORER VINEYARD Gab Padron MD [facility]-03453 Level 4 Est. Patient 22:24:31 LABORER [facility]INEYARD Gab Padron MD [facility]-02611 Level 3 Est. Patient 18:33:46 LABOR[facility]INE[employer]ARD Gab Padron MD [facility]-36233 Level 3 Est. Patient 16:19:11 CDT Yolande Lindsay MD [facility]-34693 Level 3 Est. Patient 18:59:14 CDT Yolande Lindsay MD [facility]-71818 Level 4 Est. Patient 21:29:26 CDT Yolande Lindsay MD [facility]-27874 Level 3 Est. Patient 07:37:45 CDT Yolande Lindsay MD [facility]-98146 Level 3 Est. Patient 17:03:46 CDT Yolande Lindsay MD [facility]-16209 Level 4 Est. Patient 20:02:13 LABORER [facility]INEYARD Yolande Lindsay MD [facility]-91052 Level 3 Est. Patient 16:02:07 LAB[employer] [facility] Alexis Ordaz MD [facility]-23730 Level 3 Est. Patient 12:41:24 LABORER VINEYARD Yolande Lindsay MD [facility]-30985 Level 3 Est. Patient 15:41:20 LABOR[employer] [facility]ARD Yolande Lindsay MD [facility]-87668 Level 3 Est. Patient 13:20:02 LABOR[employer] VINE[employer]ARD Yolande Lindsay MD [facility]-51799 Level 3 Est. Patient 15:00:38 CDT Jared Og MD [facility]-38228 Level 3 Est. Patient 10:22:32 CDT Yolande Lindsay MD [facility] CPT-74172 Level 3 Est. Patient 17:12:58 CDT Yoladne Lindsay MD [facility]-01682 Level 4 Est. Patient 13:30:58 CDT Yolande Lindsay MD [facility]-41537 Level 4 New Patient 09:02:42 CDT Jared Og MD [facility]-69829 Level 3 Est. Patient 08:19:07 CDT Yolande Lindsay MD [facility]-65171 Level 3 Est. Patient 12:00:13 LAB[employer] [facility] Gab Padron MD [facility]-86307 Level 3 Est. Patient 16:15:23 LABOR[employer] [facility]ARD Yolande Lindsay MD [facility]-42946 Level 2 Est. Patient 19:47:15 CDT Yolande Lindsay MD [facility]-57885 Level 3 Est. Patient 21:38:31 CDT Yolande Lindsay MD [facility]-31113 Level 3 Est. Patient 10:25:12 CDT Adiel PERAZA [facility] CPT-21103 Level 4 Est. Patient 10:51:58 CDT Yolande Lindsay MD [facility]-77133 Level 3 Est. Patient 14:04:55 LAB[employer] [facility] Rodrigo Sarah [facility]-68011 Level 3 Est. Patient 10:46:35 LABOR[employer] [facility]INEYARD Rodrigo Sarah [facility]-04596 Level 3 Est. Patient 14:24:37 LABOR[employer] [facility]INE[employer]ARD Yolande Lindsay MD [facility]-82725 Level 3 Est. Patient 17:41:58 LABORER VINEYARD Yolande Lindsay MD [facility] CPT-57562 Level 2 Est. Patient 22:01:41 LABORER VINEYARD Rodrigo Sarah [facility] CPT-68139 Level 2 Est. Patient 22:01:11 LABORER VINEYARD Rodrigo Sarah [facility] CPT-60898 Level 3 Est. Patient 10:12:29 LABORER VINEYARD Rodrigo Sarah [facility] CPT-79300 Level 3 Est. Patient 11:05:44 CDT Alexis Oradz MD [facility]-59255 Level 3 Est. Patient 14:57:20 CDT Yolande Lindsay MD [facility]-39868 Level 3 Est. Patient 14:40:57 CDT Yolande Lindsay MD [facility]-36750 Level 3 Est. Patient 20:55:40 CDT Yolande Lindsay MD [facility]-23814 Level 3 Est. Patient 12:42:38 LABORER VINEYARD Yolande Lindsay MD [facility]-60179 Level 3 Est. Patient 11:54:49 LABOR[employer] [facility]ARD Des Hines MD [facility]-70388 Level 3 Est. Patient 17:06:38 CDT Dewayne PERAZA [facility] Procedures Code Procedure Name Date Entry Date Standard Description CPT-04220 LS spine comp w obliq 13:28:00 LAB[employer] CPT-J1040 Depo Medrol 80 mg (Methyl Prednisolone Acetate) 10:51: 28 LAB[employer] [facility] CPT-J1100 Decadron 8mg (Dexamethasone) 10:51:28 LAB[employer] CPT-69299 Abx/Therapy Injection 10:51:28 LABOR[employer] [facility]INE[facility] CPT-J1100 Decadron 8mg (Dexamethasone) 21:02:30 LABORER [facility]ARD CPT-J1040 Depo Medrol 80 mg (Methyl Prednisolone Acetate) 21:02: 30 LAB[employer] [facility]INE[employer] [id number] Event Monitor - MC Transmission 09:12:32 CDT 08/06 [id number] Event Monitor - MC review and interp 09:12:32 CDT [id number] Event Monitor - MC recording 09:12:32 CDT CPT-88521 EKG Trac and Interp 16:50:22 CDT CPT-J1030 Depo Medrol 40 mg (Methyl Prednisolone Acetate) 17:05: 54 CDT CPT-J1100 Decadron 4mg (Dexamethasone) 17:05:54 CDT CPT-74511 Abx/Therapy Injection 17:05:54 CDT CPT-J1100 Decadron 4mg (Dexamethasone) 16:55:28 CDT CPT-J1030 Depo Medrol 40 mg (Methyl Prednisolone Acetate) 16:55: 28 CDT CPT-32813 Ankle Complete - Min 3V 15:58:50 CDT CPT-94905 Knee 3V 15:58:50 CDT CPT-51182 Hip comp min 2V 15:58:50 CDT CPT-J2270 Morphine Sulfate 10 mg 14:25:44 LABORER VINEYARD CPT-J2550 Phenergan 12.5 mg (Promethazine) 14:25:44 LABORER [facility]INEYARD CPT-58401 Abx/Therapy Injection 14:25:44 LABORER VINEYARD CPT-J2550 Phenergan 12.5 mg (Promethazine) 14:08:03 LABORER VINEYARD CPT-J2270 Morphine Sulfate 10 mg 14:08:03 LABORER [facility]INEYARD CPT-74821 Bladder Scan 15:00:38 CDT CPT-TCMM Transitional Care Mgmt-Moderate 09:52:22 CDT CPT-J1030 Depo Medrol 40 mg (Methyl Prednisolone Acetate) 10:55: 18 CDT CPT-J1100 Decadron 4mg (Dexamethasone) 10:55:18 CDT CPT-07684 Abx/Therapy Injection 10:55:18 CDT CPT-J1030 Depo Medrol 40 mg (Methyl Prednisolone Acetate) 10:22: 32 CDT CPT-J1100 Decadron 4mg (Dexamethasone) 10:22:32 CDT CPT-41708 Postop F/U Visit 14:37:13 CDT CPT-84741 Ankle Complete - Min 3V 17:11:58 CDT CPT-48139 Foot comp min 3V 17:11:58 CDT CPT-99502 Bladder Scan 09:56:58 CDT CPT-06367 Postop F/U Visit 09:56:58 CDT CPT-85564 Cystoscopy 09:02:42 CDT CPT-47000 Bladder Scan 09:02:42 CDT CPT-13176 Abd single AP View 16:00:35 CDT CPT-02429 Administration single or combination vaccine inc oral 10 :15:43 CDT CPT-33137 Influenza split virus > age 3 10:15:43 CDT CPT-60900 Nail Avulsion 09:24:57 CDT CPT-OV Office Visit 11:15:41 CDT CPT-24785 Abx/Therapy Injection 10:51:30 CDT CPT-J3301 Kenalog 40 mg (Triamcinolone Acetonide) 10:25:12 CDT CPT-J1100 Decadron 4mg (Dexamethasone) 10:25:12 CDT CPT-80049 Anoscopy diagnostic 10:36:12 CDT CPT-OV Office Visit 15:34:31 CDT CPT-44699 Abx/Therapy Injection 08:21:15 LABORER VINEYARD CPT-J1885 Toradol 60 mg (Ketorolac) 10:46:35 LABORER VINEYARD CPT-OV Office Visit 19:51:16 LAB[employer] CPT-79583 Spec Collection and Handling Fee 14:34:18 LABORER [facility]INEYARD CPT-PV Prev. Care Visit 14:19:18 LABORER [facility]INEYARD CPT-74257 Postop F/U Visit 14:47:51 LABORER [facility]ARD CPT-15917 Postop F/U Visit 15:15:14 LABORER [facility] CPT-28458 Postop F/U Visit 14:41:43 CDT CPT-57063 Postop F/U Visit 15:47:46 CDT CPT-OV Office Visit 15:27:23 CDT CPT-OV Office Visit 17:20:34 CDT CPT-34167 Abx/Therapy Injection 15:05:57 CDT CPT-J1100 Decadron 8mg (Dexamethasone) 14:44:57 CDT CPT-J1040 Depo Medrol 80 mg (Methyl Prednisolone Acetate) 14:44: 57 CDT CPT-JTINJ Joint Injection 10:17:37 CDT CPT-26181 Administration 2+ single or combination vaccines inc oral 13:01:46 LABORER [facility] CPT-52836 Administration single or combination vaccine inc oral 13 :01:46 LABOR[facility] CPT-19538 Pneumovax 13:01:46 LABOR[facility] CPT-40286 Influenza split virus > age 3 13:01:46 LABORER [facility] CPT-08990 Administration single or combination vaccine inc oral 08 :56:49 CDT CPT-23082 Tdap 08:56:49 CDT
--- OUTSIDE RECORDS SUMMARY | 2017-03-22 02:12 | XMS REPORT | Clinical Summary ---
Author Author Admin, MARGRET Organization [facility] Address Unknown Phone Unavailable Allergies, Adverse Reactions, Alerts Allergy Name Reaction Description Start Date Severity Status Provider CHLORHEXIDINE GLUCONATE tongue and gums swollen Critical Active Hoa Otto RMA NORFLEX Rash Critical Active Rodrigo Sarah BENCH MANAGER TRAZODONE HCL sees things Critical Active [...] MD PhD MUSCLE PAIN ICD-729.1 Inactive Yolande iLndsay MD PhD FISSURE, ANAL ICD-565.0 Inactive Yolande [...] MG TBDP 1 q4h PRN nausea ONDANSETRON 89977093718 Active Yolande Lindsay MD PhD Active ADULT ASPIRIN EC LOW STRENGTH 81 MG TBEC Take 1 tablet by mouth daily 2014 ASPIRIN 07305735585 No Longer Active Yolande Lindsay MD PhD Active ZOFRAN ODT 4 MG TBDP 1 pill dissolved by mouth every 4 hours if needed for nausea ONDANSETRON 14414637054 No Longer Active Yolande Lindsay MD PhD Active CEFTIN 500 MG TAB 1 twice a day CEFUROXIME AXETIL 87602665562 No Longer Active Yolande Lindsay MD PhD Active ALBUTEROL SULFATE 0.083 % NEB SOLN one vial per nebulizer every 4-6 hours as needed ALBUTEROL SULFATE 16698712612 No Longer Active Alexis Ordaz MD Active DOXYCYCLINE HYCLATE 100 MG CAP 1 cap by mouth twice daily DOXYCYCLINE HYCLATE 30068003827 No Longer Active Yolande Lindsay MD PhD Active CYCLOBENZAPRINE HCL 10 MG TABS 1/2 - 1 tab by mouth three times daily if needed for spasms/pain CYCLOBENZAPRINE HCL 71079332079 No Longer Active Yolande Lindsay MD PhD Active TRILEPTAL 600 MG TABS Take one 1/2 tablet in Am and 1 tablet at night OXCARBAZEPINE 88813106307 Active Yolande Lindsay MD PhD Active AZITHROMYCIN 250 MG TABS 2 pills on day 1, then 1 pill daily x 4 days AZITHROMYCIN 93907516112 No Longer Active Yolaned Lindsay MD PhD Active XOPENEX 1.25 MG/3ML NEBU 1 neb every 4 hours if needed for cough/congestion LEVALBUTEROL HCL 50883703681 No Longer Active Yolande Lindsay MD PhD Active DOXYCYCLINE HYCLATE 100 MG TAB 1 tab twice a day for 14 days 2013 DOXYCYCLINE HYCLATE 32749204152 No Longer Active Yolande Lindsay MD PhD Active LEVOTHYROXINE SODIUM 75 MCG TABS Take 1 tab daily LEVOTHYROXINE SODIUM 67202727119 Active Yolande Lindsay MD PhD Active PREVACID 30 MG CPDR Take 1 tablet by mouth daily-PRN LANSOPRAZOLE 32838836605 No Longer Active Yolande Lindsay MD PhD Active PA VITAMIN D-3 2000 UNIT CAPS 1 CAP PO DAILY CHOLECALCIFEROL 13271074658 No Longer Active Yolande Lindsay MD PhD Active CEFDINIR 300 MG CAPS by mouth twice a day CEFDINIR 96109578693 No Longer Active Gab Padron MD Active TOPAMAX 50 MG TABS 1 PO twice daily TOPIRAMATE 88913305288 Active Yolande Lindsay MD PhD Active AZITHROMYCIN 250 MG TABS 2 po qd x 1 day, then 1 po qd x 4 days AZITHROMYCIN 81874822638 No Longer Active Yolande Lindsay MD PhD Active DICLOFENAC SODIUM 75 MG TBEC 1 tablet by q 12 hours PRN headaches DICLOFENAC SODIUM 34314449880 No Longer Active Yolande Lindsay MD PhD Active FLONASE 50 MCG/ACT SUSP 1 spray each nostril am and hs FLUTICASONE PROPIONATE 12282549997 No Longer Active Todd Callaway MD Active ANUSOL-HC 25 MG SUPPOSITORY 1 rectally twice a day as needed for hemorrhoids HYDROCORTISONE JAYDEN (RECTAL) 00845680297 No Longer Active Yolande Lindsay MD PhD Active ANUSOL-HC 25 MG SUPPOSITORY 1 suppository rectally each evening as needed for anal fissure HYDROCORTISONE JAYDEN (RECTAL) 36383626244 No Longer Active LONNIE Iglesias Active VALIUM 5 MG TAB 1 po 30 minutes prior to your MRI DIAZEPAM 53716632651 No Longer Active LONNIE Iglesias Active METHOCARBAMOL 750 MG TABS 1 PO QID PRN METHOCARBAMOL 63271205665 No Longer Active Daphne Wetzel BENCH MANAGER Active NITROSTAT 0.4 MG SUBL as directed NITROGLYCERIN 30604306436 No Longer Active Rodrigo Sarah APRN Active ROBAXIN-750 750 MG TABS 2 four times a day for 3 days as needed for muscle spasm, then 1 four times a day as needed METHOCARBAMOL 02443930134 No Longer Active Rodrigo Sarah APRN Active HYDROCODONE-ACETAMINOPHEN 5-325 MG TABS 1 q 4-6 hrs prn HYDROCODONE-ACETAMINOPHEN 10321263727 No Longer Active Silvestrellnacho Sarah APRN Active VERAPAMIL HCL CR 180 MG CR-TABS TAKE 1 TAB DAILY VERAPAMIL HCL 47878730011 No Longer Active Yolande Lindsay MD PhD Active BACTRIM DS 800-160 MG TAB 1 tab by mouth twice daily TRIMETHOPRIM-SULFAMETHOXAZOLE 33423937834 No Longer Active Yolande Lindsay MD PhD Active NEXIUM 40 MG PACK 1 by mouth daily ESOMEPRAZOLE MAGNESIUM 66405313247 No Longer Active Des Hines MD Active EPIPEN 2-CHARLETTE 0.3 MG/0.3ML OMARI as need for allergic reaction EPINEPHRINE 84113295489 Active Yolande Lindsay MD PhD Active LISINOPRIL 10 MG TABS 1 PO Q D FOR BP LISINOPRIL 03007091972 Active Yolande Lindsay MD PhD Active NEXIUM 40 MG CPDR 1 PO Q D DAY ESOMEPRAZOLE MAGNESIUM 40504021306 No Longer Active Sadia Perry RN Active NEXIUM 40 MG PACK 1 by mouth daily NEXIUM 40 MG PACK ESOMEPRAZOLE MAGNESIUM Inactive VERAPAMIL HCL CR 180 MG CR-TABS TAKE 1 TAB DAILY VERAPAMIL HCL CR 180 MG CR-TABS VERAPAMIL HCL Inactive HYDROCODONE-ACETAMINOPHEN 5-325 MG TABS 1 q 4-6 hrs prn HYDROCODONE-ACETAMINOPHEN 5-325 MG TABS 873253 HYDROCODONE-ACETAMINOPHEN Inactive ROBAXIN-750 750 MG TABS 2 four times a day for 3 days as needed for muscle spasm, then 1 four times a day as needed ROBAXIN-750 750 MG TABS 954354 METHOCARBAMOL Inactive NITROSTAT 0.4 MG SUBL as directed NITROSTAT 0.4 MG SUBL NITROGLYCERIN Inactive METHOCARBAMOL 750 MG TABS 1 PO QID PRN METHOCARBAMOL 750 MG TABS 780547 METHOCARBAMOL Inactive VALIUM 5 MG TAB 1 po 30 minutes prior to your MRI VALIUM 5 MG TAB 510321 DIAZEPAM Inactive ANUSOL-HC 25 MG SUPPOSITORY 1 suppository rectally each evening as needed for anal fissure ANUSOL-HC 25 MG SUPPOSITORY 7585459 HYDROCORTISONE JAYDEN (RECTAL) Inactive ANUSOL-HC 25 MG SUPPOSITORY 1 rectally twice a day as needed for hemorrhoids ANUSOL-HC 25 MG SUPPOSITORY 3189077 HYDROCORTISONE JAYDEN (RECTAL) Inactive FLONASE 50 MCG/ACT SUSP 1 spray each nostril am and hs FLONASE 50 MCG/ACT SUSP 333264 FLUTICASONE PROPIONATE Inactive DICLOFENAC SODIUM 75 MG TBEC 1 tablet by q 12 hours PRN headaches DICLOFENAC SODIUM 75 MG TBEC 467484 DICLOFENAC SODIUM Inactive PA VITAMIN D-3 2000 UNIT CAPS 1 CAP PO DAILY PA VITAMIN D-3 2000 UNIT CAPS CHOLECALCIFEROL Inactive PREVACID 30 MG CPDR Take 1 tablet by mouth daily-PRN PREVACID 30 MG CPDR 939590 LANSOPRAZOLE Inactive DOXYCYCLINE HYCLATE 100 MG TAB 1 tab twice a day for 14 days 2013 DOXYCYCLINE HYCLATE 100 MG TAB 978989 DOXYCYCLINE HYCLATE Inactive XOPENEX 1.25 MG/3ML NEBU 1 neb every 4 hours if needed for cough/congestion XOPENEX 1.25 MG/3ML NEBU LEVALBUTEROL HCL Inactive CYCLOBENZAPRINE HCL 10 MG TABS 1/2 - 1 tab by mouth three times daily if needed for spasms/pain CYCLOBENZAPRINE HCL 10 MG TABS 071781 CYCLOBENZAPRINE HCL Inactive ALBUTEROL SULFATE 0.083 % NEBU SOLN one vial per nebulizer every 4-6 hours as needed ALBUTEROL SULFATE 0.083 % NEBU SOLN 080971 ALBUTEROL SULFATE Inactive CEFTIN 500 MG TAB 1 twice a day CEFTIN 500 MG TAB 310720 CEFUROXIME AXETIL Inactive ZOFRAN ODT 4 MG TBDP 1 pill dissolved by mouth every 4 hours if needed for nausea ZOFRAN ODT 4 MG TBDP 063216 ONDANSETRON Inactive ADULT ASPIRIN EC LOW STRENGTH 81 MG TBEC Take 1 tablet by mouth daily 2014 ADULT ASPIRIN EC LOW STRENGTH 81 MG TBEC 828811 ASPIRIN Inactive BACTRIM DS 800-160 MG TAB 1 tab by mouth twice daily BACTRIM DS 800-160 MG TAB TRIMETHOPRIM-SULFAMETHOXAZOLE Inactive AZITHROMYCIN 250 MG TABS 2 po qd x 1 day, then 1 po qd x 4 days AZITHROMYCIN 250 MG TABS 0396703 AZITHROMYCIN Inactive CEFDINIR 300 MG CAPS by mouth twice a day CEFDINIR 300 MG CAPS 115650 CEFDINIR Inactive AZITHROMYCIN 250 MG TABS 2 pills on day 1, then 1 pill daily x 4 days AZITHROMYCIN 250 MG TABS 3584719 AZITHROMYCIN Inactive DOXYCYCLINE HYCLATE 100 MG CAP 1 cap by mouth twice daily DOXYCYCLINE HYCLATE 100 MG CAP 19890510 DOXYCYCLINE HYCLATE Inactive Immunizations Vaccine Administration Date Value Standard Description Seasonal influenza vaccine, injectable, containing preservative, for > 3 years old (Afluria, FluLaval, Fluzone, Fluvirin, Fluarix, Agriflu(>=18 yo)) Fluzone (>3 yrs.) [QIT068] Influenza, seasonal, injectable influenza immunization (Flu Vax) has been administered Influenza - Unspecified Formulation [CVX88] influenza virus vaccine, unspecified formulation Seasonal influenza vaccine, injectable, containing preservative, for > 3 years old (Afluria, FluLaval, Fluzone, Fluvirin, Fluarix, Agriflu(>=18 yo)) Fluzone (>3 yrs.) [NRE642] Influenza, seasonal, injectable pneumococcal immunization administered Pneumovax 23 [CVX33] pneumococcal polysaccharide vaccine, 23 valent dT (Diphtheria and Tetanus) booster given given Td(adult) unspecified formulation Boostrix (Tetanus toxoid, reduced diphtheria toxoid and acellular pertussis vaccine, adsorbed), booster Boostrix [MCU111] tetanus toxoid, reduced diphtheria toxoid, and acellular [...] Panel - Chemistry sodium, serum 144 mmol/L 602-643 0350/01/21 potassium, serum 4.2 mmol/L 3.5-5.2 chloride, serum [...] Panel - Chemistry sodium, serum 144 mmol/L 530-480 4141/12/15 potassium, serum 5.4 mmol/L 3.5-5.2 chloride, serum [...] dipstick Negative Negative sodium, serum 143 mmol/L 573-442 9546/10/24 potassium, serum 3.9 mmol/L 3.5-5.2 chloride, serum [...] 51 mg/dL 30-200 cholesterol, serum 173 mg/dL 728-282 2808/04/28 HDL cholesterol, serum 63 mg/dL 32-96 LDL [...] 1.010 Encounters Code Encounter Date Provider Facility CPT-35447 Level 3 Est. Patient 17:03:46 CDT Yolande Lindsay MD PhD [facility] CPT-73115 Level 4 Est. Patient 20:02:13 DAIRY CONSULTANT Yolande Lindsay MD PhD [facility] CPT-35196 Level 3 Est. Patient 16:02:07 DAIRY CONSULTANT Alexis Ordaz MD [facility] CPT-69810 Level 3 Est. Patient 12:41:24 DAIRY CONSULTANT Yolande Lindsay MD PhD [facility] CPT-42659 Level 3 Est. Patient 15:41:20 DAIRY CONSULTANT Yolande Lindsay MD [facility] CPT-45844 Level 3 Est. Patient 13:20:02 DAIRY CONSULTANT Yolande Lindsay MD [facility]-97789 Level 3 Est. Patient 15:00:38 CDT Jared Og MD [facility] CPT-88363 Level 3 Est. Patient 10:22:32 CDT Yolande Lindsay MD [facility]-97018 Level 3 Est. Patient 17:12:58 CDT Yolande Lindsay MD [facility]-70482 Level 4 Est. Patient 13:30:58 CDT Yolande Lindsay MD [facility]-45094 Level 4 New Patient 09:02:42 CDT Jared Og MD [facility] CPT-10503 Level 3 Est. Patient 08:19:07 CDT Yolande Lindsay MD [facility] CPT-72505 Level 3 Est. Patient 12:00:13 DAIRY CONSULTANT Gab Padron MD [facility]-60426 Level 3 Est. Patient 16:15:23 DAIRY CONSULTANT Yolande Lindsay MD [facility] CPT-37358 Level 2 Est. Patient 19:47:15 CDT Yolande Lindsay MD [facility] CPT-49871 Level 3 Est. Patient 21:38:31 CDT Yolande Lindsay MD [facility] CPT-82154 Level 3 Est. Patient 10:25:12 CDT Adiel PERAZA [facility] CPT-91533 Level 4 Est. Patient 10:51:58 CDT Yolande Lindsay MD [facility]-66493 Level 3 Est. Patient 14:04:55 DAIRY CONSULTANT Rodrigo Sarah APRN [facility] CPT-85356 Level 3 Est. Patient 10:46:35 DAIRY CONSULTANT Rodrigo Sarah [facility] CPT-85657 Level 3 Est. Patient 14:24:37 DAIRY CONSULTANT Yolande Lindsay MD [facility] CPT-54349 Level 3 Est. Patient 17:41:58 DAIRY CONSULTANT Yolande Lindsay MD [facility] CPT-44204 Level 2 Est. Patient 22:01:41 DAIRY CONSULTANT Rodrigo Saarh [facility] CPT-84143 Level 2 Est. Patient 22:01:11 DAIRY CONSULTANT Rodrigo Sarah [facility] CPT-96250 Level 3 Est. Patient 10:12:29 DAIRY CONSULTANT Rodrigo Sarah [facility] CPT-73177 Level 3 Est. Patient 11:05:44 CDT Alexis Ordaz MD [facility] CPT-79460 Level 3 Est. Patient 14:57:20 CDT Yolande Lindsay MD [facility] CPT-79313 Level 3 Est. Patient 14:40:57 CDT Yolande Lindsay MD [facility] CPT-73065 Level 3 Est. Patient 20:55:40 CDT Yolande Lindsay MD [facility] CPT-14391 Level 3 Est. Patient 12:42:38 DAIRY CONSULTANT Yolande Lindsay MD [facility]-57237 Level 3 Est. Patient 11:54:49 DAIRY CONSULTANT Des Hines MD [facility] CPT-49130 Level 3 Est. Patient 17:06:38 CDT Dewayne PERAZA [facility] Procedures Code Procedure Name Date Entry Date Standard Description CPT-J1030 Depo Medrol 40 mg (Methyl Prednisolone Acetate) 17:05: 54 CDT CPT-J1100 Decadron 4mg (Dexamethasone) 17:05:54 CDT CPT-28282 Abx/Therapy Injection 17:05:54 CDT CPT-J1100 Decadron 4mg (Dexamethasone) 16:55:28 CDT CPT-J1030 Depo Medrol 40 mg (Methyl Prednisolone Acetate) 16:55: 28 CDT CPT-89216 Ankle Complete - Min 3V 15:58:50 CDT CPT-89499 Knee 3V 15:58:50 CDT CPT-94397 Hip comp min 2V 15:58:50 CDT CPT-J2270 Morphine Sulfate 10 mg 14:25:44 DAIRY CONSULTANT CPT-J2550 Phenergan 12.5 mg (Promethazine) 14:25:44 DAIRY CONSULTANT CPT-94056 Abx/Therapy Injection 14:25:44 DAIRY CONSULTANT CPT-J2550 Phenergan 12.5 mg (Promethazine) 14:08:03 DAIRY CONSULTANT CPT-J2270 Morphine Sulfate 10 mg 14:08:03 DAIRY CONSULTANT CPT-47194 Bladder Scan 15:00:38 CDT CPT-TCMM Transitional Care Mgmt-Moderate 09:52:22 CDT CPT-J1030 Depo Medrol 40 mg (Methyl Prednisolone Acetate) 10:55: 18 CDT CPT-J1100 Decadron 4mg (Dexamethasone) 10:55:18 CDT CPT-23340 Abx/Therapy Injection 10:55:18 CDT CPT-J1030 Depo Medrol 40 mg (Methyl Prednisolone Acetate) 10:22: 32 CDT CPT-J1100 Decadron 4mg (Dexamethasone) 10:22:32 CDT CPT-30356 Postop F/U Visit 14:37:13 CDT CPT-66091 Ankle Complete - Min 3V 17:11:58 CDT CPT-45211 Foot comp min 3V 17:11:58 CDT CPT-09590 Bladder Scan 09:56:58 CDT CPT-21769 Postop F/U Visit 09:56:58 CDT CPT-52456 Cystoscopy 09:02:42 CDT CPT-76014 Bladder Scan 09:02:42 CDT CPT-09005 Abd single AP View 16:00:35 CDT CPT-53066 Administration single or combination vaccine inc oral 10 :15:43 CDT CPT-44906 Influenza split virus > age 3 10:15:43 CDT CPT-90623 Nail Avulsion 09:24:57 CDT CPT-OV Office Visit 11:15:41 CDT CPT-69918 Abx/Therapy Injection 10:51:30 CDT CPT-J3301 Kenalog 40 mg (Triamcinolone Acetonide) 10:25:12 CDT CPT-J1100 Decadron 4mg (Dexamethasone) 10:25:12 CDT CPT-13989 Anoscopy diagnostic 10:36:12 CDT CPT-OV Office Visit 15:34:31 CDT CPT-50852 Abx/Therapy Injection 08:21:15 DAIRY CONSULTANT CPT-J1885 Toradol 60 mg (Ketorolac) 10:46:35 DAIRY CONSULTANT CPT-OV Office Visit 19:51:16 DAIRY CONSULTANT CPT-21585 Spec Collection and Handling Fee 14:34:18 DAIRY CONSULTANT CPT-PV Prev. Care Visit 14:19:18 DAIRY CONSULTANT CPT-06676 Postop F/U Visit 14:47:51 DAIRY CONSULTANT CPT-80093 Postop F/U Visit 15:15:14 DAIRY CONSULTANT CPT-68416 Postop F/U Visit 14:41:43 CDT CPT-93677 Postop F/U Visit 15:47:46 CDT CPT-OV Office Visit 15:27:23 CDT CPT-OV Office Visit 17:20:34 CDT CPT-94600 Abx/Therapy Injection 15:05:57 CDT CPT-J1100 Decadron 8mg (Dexamethasone) 14:44:57 CDT CPT-J1040 Depo Medrol 80 mg (Methyl Prednisolone Acetate) 14:44: 57 CDT CPT-JTINJ Joint Injection 10:17:37 CDT CPT-93477 Administration 2+ single or combination vaccines inc oral 13:01:46 DAIRY CONSULTANT CPT-28621 Administration single or combination vaccine inc oral 13 :01:46 DAIRY CONSULTANT CPT-35570 Pneumovax 13:01:46 DAIRY CONSULTANT CPT-03019 Influenza split virus > age 3 13:01:46 DAIRY CONSULTANT CPT-27646 Administration single or combination vaccine inc oral 08 :56:49 CDT CPT-65600 Tdap 08:56:49 CDT
--- OUTSIDE RECORDS SUMMARY | 2017-03-22 02:14 | XMS REPORT ---
Author Author [facility] Medical Staff Organization [facility] Address [address] [id number] Phone [phone] Care Team Providers Care Idea Man Name Role Phone EVELYN SPEARS MD PP [phone] Summary purpose TRANSITION OF CARE AUTO GENERATION [...]
--- OUTSIDE RECORDS SUMMARY | 2017-03-22 02:14 | XMS REPORT | Clinical Summary ---
Author Author Admin, MARGRET Organization [facility] Address Unknown Phone Unavailable Allergies, Adverse Reactions, Alerts Allergy Name Reaction Description Start Date Severity Status Provider CHLORHEXIDINE GLUCONATE tongue and gums swollen Critical Active Hoa Otto RMA NORFLEX Rash Critical Active Rodrigo Sarah LAND CLEARER TRAZODONE HCL sees things Critical Active Dewayne [...] PAIN ICD-729.1 Inactive Yolande Lindsay MD PhD AFTERCARE FOLLOW SURGERY MUSCULOSKEL SYSTEM NEC ICD-V58.78 02/06 Inactive Todd Callaway MD LONG-TERM (CURRENT) USE [...] Sinusitis ICD-461.9 Inactive Yolande Lindsay MD PhD CHEST PAIN, UNSPECIFIED ICD-786.50 Inactive Yolande Lindsay MD PhD FISSURE, ANAL ICD-565.0 Inactive Yolande Lindsay MD PhD Pallor ICD-782.61 [...] MG TBDP 1 q4h PRN nausea ONDANSETRON 01794122520 Active Yolande Lindsay MD PhD Active ADULT ASPIRIN EC LOW STRENGTH 81 MG TBEC Take 1 tablet by mouth daily 2014 ASPIRIN 08922611204 No Longer Active Yolande Lindsay MD PhD Active ZOFRAN ODT 4 MG TBDP 1 pill dissolved by mouth every 4 hours if needed for nausea ONDANSETRON 43138437858 No Longer Active Yolande Lindsay MD PhD Active CEFTIN 500 MG TAB 1 twice a day CEFUROXIME AXETIL 28926602702 No Longer Active Yolande Lindsay MD PhD Active ALBUTEROL SULFATE 0.083 % NEB SOLN one vial per nebulizer every 4-6 hours as needed ALBUTEROL SULFATE 70597977105 No Longer Active Alexis Ordaz MD Active DOXYCYCLINE HYCLATE 100 MG CAP 1 cap by mouth twice daily DOXYCYCLINE HYCLATE 77361525674 No Longer Active Yolande Lindsay MD PhD Active CYCLOBENZAPRINE HCL 10 MG TABS 1/2 - 1 tab by mouth three times daily if needed for spasms/pain CYCLOBENZAPRINE HCL 70579124342 No Longer Active Yolande Lindsay MD PhD Active TRILEPTAL 600 MG TABS Take one 1/2 tablet in Am and 1 tablet at night OXCARBAZEPINE 35288998789 Active Yolande Lindsay MD PhD Active AZITHROMYCIN 250 MG TABS 2 pills on day 1, then 1 pill daily x 4 days AZITHROMYCIN 26289017899 No Longer Active Yolande Lindsay MD PhD Active XOPENEX 1.25 MG/3ML NEBU 1 neb every 4 hours if needed for cough/congestion LEVALBUTEROL HCL 55376411595 No Longer Active Yolande Lindsay MD PhD Active DOXYCYCLINE HYCLATE 100 MG TAB 1 tab twice a day for 14 days 2013 DOXYCYCLINE HYCLATE 60376492918 No Longer Active Yolande Lindsay MD PhD Active LEVOTHYROXINE SODIUM 75 MCG TABS Take 1 tab daily LEVOTHYROXINE SODIUM 24136910345 Active Yolande Lindsay MD PhD Active PREVACID 30 MG CPDR Take 1 tablet by mouth daily-PRN LANSOPRAZOLE 65406907498 No Longer Active Yolande Lindsay MD PhD Active PA VITAMIN D-3 2000 UNIT CAPS 1 CAP PO DAILY CHOLECALCIFEROL 57904691505 No Longer Active Yolande Lindsay MD PhD Active CEFDINIR 300 MG CAPS by mouth twice a day CEFDINIR 08618130214 No Longer Active Gab Padron MD Active TOPAMAX 50 MG TABS 1 PO twice daily TOPIRAMATE 92712595806 Active Yolande Lindsay MD PhD Active AZITHROMYCIN 250 MG TABS 2 po qd x 1 day, then 1 po qd x 4 days AZITHROMYCIN 78247728116 No Longer Active Yolande Lindsay MD PhD Active DICLOFENAC SODIUM 75 MG TBEC 1 tablet by q 12 hours PRN headaches DICLOFENAC SODIUM 98977803636 No Longer Active Yolande Lindsay MD PhD Active FLONASE 50 MCG/ACT SUSP 1 spray each nostril am and hs FLUTICASONE PROPIONATE 30114744447 No Longer Active Todd Callaway MD Active ANUSOL-HC 25 MG SUPPOSITORY 1 rectally twice a day as needed for hemorrhoids HYDROCORTISONE JAYDEN (RECTAL) 69476920051 No Longer Active Yolande Lindsay MD PhD Active ANUSOL-HC 25 MG SUPPOSITORY 1 suppository rectally each evening as needed for anal fissure HYDROCORTISONE JAYDEN (RECTAL) 99854210378 No Longer Active LONNIE Iglesias Active VALIUM 5 MG TAB 1 po 30 minutes prior to your MRI DIAZEPAM 61480517472 No Longer Active LONNIE Iglesias Active METHOCARBAMOL 750 MG TABS 1 PO QID PRN METHOCARBAMOL 61771078806 No Longer Active Daphne Wetzel LAND CLEARER Active NITROSTAT 0.4 MG SUBL as directed NITROGLYCERIN 28270558611 No Longer Active Rodrigo Sarah APRN Active ROBAXIN-750 750 MG TABS 2 four times a day for 3 days as needed for muscle spasm, then 1 four times a day as needed METHOCARBAMOL 64514916871 No Longer Active Rodrigo Sarah APRN Active HYDROCODONE-ACETAMINOPHEN 5-325 MG TABS 1 q 4-6 hrs prn HYDROCODONE-ACETAMINOPHEN 21135937264 No Longer Active Silvestrellnacho Sarah APRN Active VERAPAMIL HCL CR 180 MG CR-TABS TAKE 1 TAB DAILY VERAPAMIL HCL 87521721291 No Longer Active Yolande Lindsay MD PhD Active BACTRIM DS 800-160 MG TAB 1 tab by mouth twice daily TRIMETHOPRIM-SULFAMETHOXAZOLE 95218430322 No Longer Active Yolande Lindsay MD PhD Active NEXIUM 40 MG PACK 1 by mouth daily ESOMEPRAZOLE MAGNESIUM 15645719292 No Longer Active Des Hines MD Active EPIPEN 2-CHARLETTE 0.3 MG/0.3ML OMARI as need for allergic reaction EPINEPHRINE 37853029622 Active Yolande Lindsay MD PhD Active LISINOPRIL 10 MG TABS 1 PO Q D FOR BP LISINOPRIL 84642136652 Active Yolande Lindsay MD PhD Active NEXIUM 40 MG CPDR 1 PO Q D DAY ESOMEPRAZOLE MAGNESIUM 78172933235 No Longer Active Sadia Perry RN Active NEXIUM 40 MG PACK 1 by mouth daily NEXIUM 40 MG PACK ESOMEPRAZOLE MAGNESIUM Inactive VERAPAMIL HCL CR 180 MG CR-TABS TAKE 1 TAB DAILY VERAPAMIL HCL CR 180 MG CR-TABS VERAPAMIL HCL Inactive HYDROCODONE-ACETAMINOPHEN 5-325 MG TABS 1 q 4-6 hrs prn HYDROCODONE-ACETAMINOPHEN 5-325 MG TABS 209040 HYDROCODONE-ACETAMINOPHEN Inactive ROBAXIN-750 750 MG TABS 2 four times a day for 3 days as needed for muscle spasm, then 1 four times a day as needed ROBAXIN-750 750 MG TABS 658232 METHOCARBAMOL Inactive NITROSTAT 0.4 MG SUBL as directed NITROSTAT 0.4 MG SUBL NITROGLYCERIN Inactive METHOCARBAMOL 750 MG TABS 1 PO QID PRN METHOCARBAMOL 750 MG TABS 915718 METHOCARBAMOL Inactive VALIUM 5 MG TAB 1 po 30 minutes prior to your MRI VALIUM 5 MG TAB 745282 DIAZEPAM Inactive ANUSOL-HC 25 MG SUPPOSITORY 1 suppository rectally each evening as needed for anal fissure ANUSOL-HC 25 MG SUPPOSITORY 3422240 HYDROCORTISONE JAYDEN (RECTAL) Inactive ANUSOL-HC 25 MG SUPPOSITORY 1 rectally twice a day as needed for hemorrhoids ANUSOL-HC 25 MG SUPPOSITORY 1020909 HYDROCORTISONE JAYDEN (RECTAL) Inactive FLONASE 50 MCG/ACT SUSP 1 spray each nostril am and hs FLONASE 50 MCG/ACT SUSP 802162 FLUTICASONE PROPIONATE Inactive DICLOFENAC SODIUM 75 MG TBEC 1 tablet by q 12 hours PRN headaches DICLOFENAC SODIUM 75 MG TBEC 336412 DICLOFENAC SODIUM Inactive PA VITAMIN D-3 2000 UNIT CAPS 1 CAP PO DAILY PA VITAMIN D-3 2000 UNIT CAPS CHOLECALCIFEROL Inactive PREVACID 30 MG CPDR Take 1 tablet by mouth daily-PRN PREVACID 30 MG CPDR 439481 LANSOPRAZOLE Inactive DOXYCYCLINE HYCLATE 100 MG TAB 1 tab twice a day for 14 days 2013 DOXYCYCLINE HYCLATE 100 MG TAB 644248 DOXYCYCLINE HYCLATE Inactive XOPENEX 1.25 MG/3ML NEBU 1 neb every 4 hours if needed for cough/congestion XOPENEX 1.25 MG/3ML NEBU LEVALBUTEROL HCL Inactive CYCLOBENZAPRINE HCL 10 MG TABS 1/2 - 1 tab by mouth three times daily if needed for spasms/pain CYCLOBENZAPRINE HCL 10 MG TABS 814851 CYCLOBENZAPRINE HCL Inactive ALBUTEROL SULFATE 0.083 % NEBU SOLN one vial per nebulizer every 4-6 hours as needed ALBUTEROL SULFATE 0.083 % NEBU SOLN 147155 ALBUTEROL SULFATE Inactive CEFTIN 500 MG TAB 1 twice a day CEFTIN 500 MG TAB 098503 CEFUROXIME AXETIL Inactive ZOFRAN ODT 4 MG TBDP 1 pill dissolved by mouth every 4 hours if needed for nausea ZOFRAN ODT 4 MG TBDP 939326 ONDANSETRON Inactive ADULT ASPIRIN EC LOW STRENGTH 81 MG TBEC Take 1 tablet by mouth daily 2014 ADULT ASPIRIN EC LOW STRENGTH 81 MG TBEC 523754 ASPIRIN Inactive BACTRIM DS 800-160 MG TAB 1 tab by mouth twice daily BACTRIM DS 800-160 MG TAB TRIMETHOPRIM-SULFAMETHOXAZOLE Inactive AZITHROMYCIN 250 MG TABS 2 po qd x 1 day, then 1 po qd x 4 days AZITHROMYCIN 250 MG TABS 9286230 AZITHROMYCIN Inactive CEFDINIR 300 MG CAPS by mouth twice a day CEFDINIR 300 MG CAPS 386039 CEFDINIR Inactive AZITHROMYCIN 250 MG TABS 2 pills on day 1, then 1 pill daily x 4 days AZITHROMYCIN 250 MG TABS 8538795 AZITHROMYCIN Inactive DOXYCYCLINE HYCLATE 100 MG CAP 1 cap by mouth twice daily DOXYCYCLINE HYCLATE 100 MG CAP 19890510 DOXYCYCLINE HYCLATE Inactive Immunizations Vaccine Administration Date Value Standard Description Seasonal influenza vaccine, injectable, containing preservative, for > 3 years old (Afluria, FluLaval, Fluzone, Fluvirin, Fluarix, Agriflu(>=18 yo)) Fluzone (>3 yrs.) [NFI583] Influenza, seasonal, injectable influenza immunization (Flu Vax) has been administered Influenza - Unspecified Formulation [CVX88] influenza virus vaccine, unspecified formulation Seasonal influenza vaccine, injectable, containing preservative, for > 3 years old (Afluria, FluLaval, Fluzone, Fluvirin, Fluarix, Agriflu(>=18 yo)) Fluzone (>3 yrs.) [QOH504] Influenza, seasonal, injectable pneumococcal immunization administered Pneumovax 23 [CVX33] pneumococcal polysaccharide vaccine, 23 valent dT (Diphtheria and Tetanus) booster given given Td(adult) unspecified formulation Boostrix (Tetanus toxoid, reduced diphtheria toxoid and acellular pertussis vaccine, adsorbed), booster Boostrix [CHJ330] tetanus toxoid, reduced diphtheria toxoid, and acellular [...] Panel - Chemistry sodium, serum 144 mmol/L [phone]/01/21 potassium, serum 4.2 mmol/L 3.5-5.2 chloride, serum [...] Panel - Chemistry sodium, serum 144 mmol/L [phone]/12/15 potassium, serum 5.4 mmol/L 3.5-5.2 chloride, serum [...] dipstick Negative Negative sodium, serum 143 mmol/L [phone]/10/24 potassium, serum 3.9 mmol/L 3.5-5.2 chloride, serum [...] 51 mg/dL 30-200 cholesterol, serum 173 mg/dL [phone]/04/28 HDL cholesterol, serum 63 mg/dL 32-96 LDL cholesterol, serum 100 mg/dL 0-130 Office Visit: Followup cystoscopy and sling - [...] 1.010 Encounters Code Encounter Date Provider Facility CPT-08028 Level 3 Est. Patient 17:03:46 CDT Yolande Lindsay MD [facility] CPT-64215 Level 4 Est. Patient 20:02:13 SUPERVISOR SMALL APPLIANCE ASSEMBLY Yolande Lindsay MD [facility] CPT-82290 Level 3 Est. Patient 16:02:07 SUPERVISOR SMALL APPLIANCE ASSEMBLY Alexis Ordaz MD [facility] CPT-90885 Level 3 Est. Patient 12:41:24 SUPERVISOR SMALL APPLIANCE ASSEMBLY Yolande Lindsay MD [facility] CPT-54871 Level 3 Est. Patient 15:41:20 SUPERVISOR SMALL APPLIANCE ASSEMBLY Yolande Lindsay MD [facility] CPT-36943 Level 3 Est. Patient 13:20:02 SUPERVISOR SMALL APPLIANCE ASSEMBLY Yolande Lindsay MD [facility] CPT-03331 Level 3 Est. Patient 15:00:38 CDT Jared Og MD [facility]-45693 Level 3 Est. Patient 10:22:32 CDT Yolande Lindsay MD PhD [facility] CPT-68342 Level 3 Est. Patient 17:12:58 CDT Yolande Lindsay MD [facility] CPT-84437 Level 4 Est. Patient 13:30:58 CDT Yolande Lindsay MD [facility]-99281 Level 4 New Patient 09:02:42 CDT Jared Og MD [facility]-55457 Level 3 Est. Patient 08:19:07 CDT Yolande Lindsay MD [facility]-69953 Level 3 Est. Patient 12:00:13 SUPERVISOR SMALL APPLIANCE ASSEMBLY Gab Padron MD [facility]-51400 Level 3 Est. Patient 16:15:23 SUPERVISOR SMALL APPLIANCE ASSEMBLY Yolande Lindsay MD [facility]-39387 Level 2 Est. Patient 19:47:15 CDT Yolande Lindsay MD [facility]-94688 Level 3 Est. Patient 21:38:31 CDT Yolande Lindsay MD [facility]-01530 Level 3 Est. Patient 10:25:12 CDT Adiel PERAZA [facility]-37091 Level 4 Est. Patient 10:51:58 CDT Yolande Lindsay MD [facility]-45263 Level 3 Est. Patient 14:04:55 SUPERVISOR SMALL APPLIANCE ASSEMBLY Rodrigo Sarah [facility]-66045 Level 3 Est. Patient 10:46:35 SUPERVISOR SMALL APPLIANCE ASSEMBLY Rodrigo Sarah [facility]-04188 Level 3 Est. Patient 14:24:37 SUPERVISOR SMALL APPLIANCE ASSEMBLY Yolande Lindsay MD [facility]-04603 Level 3 Est. Patient 17:41:58 SUPERVISOR SMALL APPLIANCE ASSEMBLY Yolande Lindsay MD [facility]-28684 Level 2 Est. Patient 22:01:41 SUPERVISOR SMALL APPLIANCE ASSEMBLY Rodrigo Sarah [facility] CPT-14311 Level 2 Est. Patient 22:01:11 SUPERVISOR SMALL APPLIANCE ASSEMBLY Rodrigo Sarah [facility] CPT-09526 Level 3 Est. Patient 10:12:29 SUPERVISOR SMALL APPLIANCE ASSEMBLY Rodrigo Sarah [facility] CPT-47698 Level 3 Est. Patient 11:05:44 CDT Alexis Ordaz MD [facility] CPT-66992 Level 3 Est. Patient 14:57:20 CDT Yolande Lindsay MD [facility] CPT-36348 Level 3 Est. Patient 14:40:57 CDT Yolande Lindsay MD [facility] CPT-25848 Level 3 Est. Patient 20:55:40 CDT Yolande Lindsay MD [facility] CPT-16411 Level 3 Est. Patient 12:42:38 SUPERVISOR SMALL APPLIANCE ASSEMBLY Yolande Lindsay MD [facility] CPT-31725 Level 3 Est. Patient 11:54:49 SUPERVISOR SMALL APPLIANCE ASSEMBLY Des Hines MD [facility] CPT-90469 Level 3 Est. Patient 17:06:38 CDT Dewayne PERAZA [facility] Procedures Code Procedure Name Date Entry Date Standard Description CPT-J1030 Depo Medrol 40 mg (Methyl Prednisolone Acetate) 17:05: 54 CDT CPT-J1100 Decadron 4mg (Dexamethasone) 17:05:54 CDT CPT-67089 Abx/Therapy Injection 17:05:54 CDT CPT-J1100 Decadron 4mg (Dexamethasone) 16:55:28 CDT CPT-J1030 Depo Medrol 40 mg (Methyl Prednisolone Acetate) 16:55: 28 CDT CPT-81978 Ankle Complete - Min 3V 15:58:50 CDT CPT-16630 Knee 3V 15:58:50 CDT CPT-25539 Hip comp min 2V 15:58:50 CDT CPT-J2270 Morphine Sulfate 10 mg 14:25:44 SUPERVISOR SMALL APPLIANCE ASSEMBLY CPT-J2550 Phenergan 12.5 mg (Promethazine) 14:25:44 SUPERVISOR SMALL APPLIANCE ASSEMBLY CPT-04656 Abx/Therapy Injection 14:25:44 SUPERVISOR SMALL APPLIANCE ASSEMBLY CPT-J2550 Phenergan 12.5 mg (Promethazine) 14:08:03 SUPERVISOR SMALL APPLIANCE ASSEMBLY CPT-J2270 Morphine Sulfate 10 mg 14:08:03 SUPERVISOR SMALL APPLIANCE ASSEMBLY CPT-00756 Bladder Scan 15:00:38 CDT CPT-TCMM Transitional Care Mgmt-Moderate 09:52:22 CDT CPT-J1030 Depo Medrol 40 mg (Methyl Prednisolone Acetate) 10:55: 18 CDT CPT-J1100 Decadron 4mg (Dexamethasone) 10:55:18 CDT CPT-28922 Abx/Therapy Injection 10:55:18 CDT CPT-J1030 Depo Medrol 40 mg (Methyl Prednisolone Acetate) 10:22: 32 CDT CPT-J1100 Decadron 4mg (Dexamethasone) 10:22:32 CDT CPT-99046 Postop F/U Visit 14:37:13 CDT CPT-34285 Ankle Complete - Min 3V 17:11:58 CDT CPT-97710 Foot comp min 3V 17:11:58 CDT CPT-50272 Bladder Scan 09:56:58 CDT CPT-65744 Postop F/U Visit 09:56:58 CDT CPT-93869 Cystoscopy 09:02:42 CDT CPT-94729 Bladder Scan 09:02:42 CDT CPT-02448 Abd single AP View 16:00:35 CDT CPT-43148 Administration single or combination vaccine inc oral 10 :15:43 CDT CPT-58980 Influenza split virus > age 3 10:15:43 CDT CPT-07318 Nail Avulsion 09:24:57 CDT CPT-OV Office Visit 11:15:41 CDT CPT-99295 Abx/Therapy Injection 10:51:30 CDT CPT-J3301 Kenalog 40 mg (Triamcinolone Acetonide) 10:25:12 CDT CPT-J1100 Decadron 4mg (Dexamethasone) 10:25:12 CDT CPT-67717 Anoscopy diagnostic 10:36:12 CDT CPT-OV Office Visit 15:34:31 CDT CPT-76330 Abx/Therapy Injection 08:21:15 SUPERVISOR SMALL APPLIANCE ASSEMBLY CPT-J1885 Toradol 60 mg (Ketorolac) 10:46:35 SUPERVISOR SMALL APPLIANCE ASSEMBLY CPT-OV Office Visit 19:51:16 SUPERVISOR SMALL APPLIANCE ASSEMBLY CPT-71653 Spec Collection and Handling Fee 14:34:18 SUPERVISOR SMALL APPLIANCE ASSEMBLY CPT-PV Prev. Care Visit 14:19:18 SUPERVISOR SMALL APPLIANCE ASSEMBLY CPT-33050 Postop F/U Visit 14:47:51 SUPERVISOR SMALL APPLIANCE ASSEMBLY CPT-68423 Postop F/U Visit 15:15:14 SUPERVISOR SMALL APPLIANCE ASSEMBLY CPT-64870 Postop F/U Visit 14:41:43 CDT CPT-88501 Postop F/U Visit 15:47:46 CDT CPT-OV Office Visit 15:27:23 CDT CPT-OV Office Visit 17:20:34 CDT CPT-55162 Abx/Therapy Injection 15:05:57 CDT CPT-J1100 Decadron 8mg (Dexamethasone) 14:44:57 CDT CPT-J1040 Depo Medrol 80 mg (Methyl Prednisolone Acetate) 14:44: 57 CDT CPT-JTINJ Joint Injection 10:17:37 CDT CPT-12874 Administration 2+ single or combination vaccines inc oral 13:01:46 SUPERVISOR SMALL APPLIANCE ASSEMBLY CPT-12031 Administration single or combination vaccine inc oral 13 :01:46 SUPERVISOR SMALL APPLIANCE ASSEMBLY CPT-69932 Pneumovax 13:01:46 SUPERVISOR SMALL APPLIANCE ASSEMBLY CPT-95331 Influenza split virus > age 3 13:01:46 SUPERVISOR SMALL APPLIANCE ASSEMBLY CPT-94508 Administration single or combination vaccine inc oral 08 :56:49 CDT CPT-39259 Tdap 08:56:49 CDT
--- OUTSIDE RECORDS SUMMARY | 2017-03-22 02:16 | XMS REPORT | Clinical Summary ---
Author Author Admin, MARGRET Organization [employer] Address Unknown Phone Unavailable Allergies, Adverse Reactions, Alerts Allergy Name Reaction Description Start Date Severity Status Provider VALENTIN Critical Active Rodrigo Montemayorl IT ASSOCIATE CHLORHEXIDINE GLUCONATE tongue and gums swollen Critical Active Hoa Kabaford RMA NORFLEX Rash Critical Active Silvestrellina Frazell IT ASSOCIATE TRAZODONE HCL sees things Critical Active Dewayne [...] leg ALLERGIC REACTION, ACUTE 995.3 Resolved Alexis Odraz MD Allergy, unspecified, not elsewhere classified GERD [...] Hoa Otto [facility] Old myocardial infarction Pelvic pain 789.09 Active Yolande Lindsay MD PhD Abdominal pain, other specified site; multiple sites Edema 782.3 Active Yolande Lindsay MD PhD Edema Rash 782.1 Active Yolande Lindsay MD PhD Rash and other nonspecific skin eruption Back pain, lumbar 724.2 Active Gab Padron MD Lumbago Cough 786.2 Active Jillina Tyrel IT ASSOCIATE Cough 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 Jillina Frazellilian IT ASSOCIATE 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 Anemia 285.9 Active Gab Padron MD Anemia, unspecified Conjunctivitis 372.30 Active Jillina Tyrel IT ASSOCIATE Conjunctivitis, unspecified Sinusitis 473.9 Active Jillina Frazell IT ASSOCIATE Unspecified sinusitis (chronic) Nonspecific syndrome suggestive of viral illness 079.99 Active Rodrigo Sarah APRN Unspecified viral infection Laryngitis 464.00 Active Jillina Tyrel IT ASSOCIATE Acute laryngitis without mention of obstruction Abdominal [...] and thigh Renal carcinoma 189.0 Active Erum [facility] Malignant neoplasm of kidney, except pelvis FOOT [...] PhD CHEST PAIN, UNSPECIFIED ICD-786.50 Inactive Yolande Lnidsay MD PhD HEADACHE ICD-784.0 Inactive Yolande Lindsay MD PhD OTHER DISORDER OF COCCYX ICD-724.79 Inactive Yolande Lindsay MD PhD ABDOMINAL PAIN, EPIGASTRIC ICD-789.06 Inactive Yolande Lindsay MD PhD DYSPHAGIA UNSPECIFIED ICD-787.20 Inactive Yoalnde Lindsay MD PhD ABDOMINAL PAIN, LEFT LOWER [...] every 6 hrs prn pain TRAMADOL HCL 18149138460 Active Gab Padron MD Active PREDNISONE 20 MG TAB 2 tabs daily for 3 days, 1 tab daily for 3 days, 1/2 tab daily for 2 days PREDNISONE 72845319968 No Longer Active Gab Padron MD Active ZOFRAN ODT 4 MG TBDP 1 po q6hr PRN Nausea ONDANSETRON 79656914495 Active Gab Padron MD Active IBUPROFEN 600 MG TAB 1 tablet by mouth every 6 hours for 7 days, then 1 tablet every 6 hours as needed. Take with food IBUPROFEN 23389007433 Active Jillina Frazell IT ASSOCIATE Active BACTRIM DS 800-160 MG TAB 1 tab by mouth twice daily TRIMETHOPRIM-SULFAMETHOXAZOLE 31780064554 No Longer Active Gab Padron MD Active ADVAIR DISKUS 250-50 MCG/DOSE AEPB 1 puff BID FLUTICASONE- SALMETEROL 68577402218 Active Rodrigo Sarah APRN Active LEVOTHYROXINE SODIUM 75 MCG TABS Take 1 tab daily LEVOTHYROXINE SODIUM 97926451287 No Longer Active Mariana Medellinelise [facility] Active SYNTHROID 88 MCG ORAL TABS Take one by mouth daily LEVOTHYROXINE SODIUM 58486266202 Active Gab Padron MD Active CHERATUSSIN AC 100-10 MG/5ML SYRP 1 tsp by mouth every 4 hours as needed for cough GUAIFENESIN-CODEINE 08460772488 No Longer Active Gab Padron MD Active POLYTRIM 70018-0.1 UNIT/ML-% SOLN 1 gtt to affected eye q3h x 7 days POLYMYXIN B-TRIMETHOPRIM 14585297723 No Longer Active Gab Padron MD Active FLUTICASONE PROPIONATE 50 MCG/ACT SUSP 1 to 2 sprays each nostril daily 04/21 FLUTICASONE PROPIONATE 69732024457 No Longer Active Gab Padron MD Active TRILEPTAL 600 MG TABS Take one 1 tablet in Am and 1 tablet at night OXCARBAZEPINE 86843061398 Active Gab Padron MD Active CEFDINIR 300 MG CAPS 1 po BID x 10 days CEFDINIR 90258339074 No Longer Active Rodrigo Sarah APRN Active CEFTIN 500 MG TAB 1 twice a day CEFUROXIME AXETIL 86712561356 No Longer Active Gab Padron MD Active AZITHROMYCIN 250 MG TABS 2 po qd x 1 day, then 1 po qd x 4 days AZITHROMYCIN 02478575569 No Longer Active Rodrigo Sarah APRN Active CLARITIN 10 MG TAB 1 tablet by mouth daily as needed for allergies LORATADINE 64299599712 Active Rodrigo Sarah APRN Active OXYCODONE HCL 5 MG ORAL CAPS 1 TAB PO Q HS OXYCODONE HCL 00923731679 No Longer Active Rodrigo Sarah APRN Active NIASPAN 500 MG ORAL CR-TABS 1 pill nightly x 1 week, then 2 pills nightly x 1 week, then 3 pills nightly x 1 week, then 4 pills nightly NIACIN (ANTIHYPERLIPIDEMIC) 48255218742 No Longer Active Rodrigo Sarah APRN Active NIACIN 500 MG TABS 1 pill by mouth nightly x 1 week, then 2 pills x 1 week, then 3 pills x 1 week, then 4 pills nightly - take after evening meal, with applesauce or an apple NIACIN 56366513333 No Longer Active Yolande Lindsay MD PhD Active FISH OIL 1000 MG CAPS 3 pills daily OMEGA-3 FATTY ACIDS 67832431786 Active Yolande Lindsay MD PhD Active TRIAMCINOLONE ACETONIDE 0.1 % CREA apply bid sparingly to rash TRIAMCINOLONE ACETONIDE 79393895495 Active Yolande Lindsay MD PhD Active FUROSEMIDE 20 MG TAB 1 tablet by mouth daily FUROSEMIDE 55533870110 Active Tisha Lambert APRN Active LISINOPRIL 20 MG ORAL TABS 1 tab by mouth daily LISINOPRIL 57110780407 Active Tisha Fausto IT ASSOCIATE Active FUROSEMIDE 20 MG TABS 1 pill by mouth daily, for edema FUROSEMIDE 71410391096 No Longer Active Yolande Lindsay MD PhD Active ATORVASTATIN CALCIUM 10 MG TABS 1 pill by mouth daily, for cholesterol 09/06 ATORVASTATIN CALCIUM 65018699201 Active Gab Padron MD Active CALCIUM 600+D PLUS MINERALS 600-400 MG-UNIT ORAL CHEW 1 tab by mouth daily CALCIUM CARBONATE-VIT D-MIN 61297505156 No Longer Active Yolande Lindsay MD PhD Active CYCLOBENZAPRINE HCL 10 MG TABS 1 tablet by mouth three times daily as needed for muscle spasm/pain CYCLOBENZAPRINE HCL 63317312861 Active Yolande Lindsay MD PhD Active ONDANSETRON 4 MG TBDP 1 q4h PRN nausea ONDANSETRON 50213733921 Active Yolande Lindsay MD PhD Active ADULT ASPIRIN EC LOW STRENGTH 81 MG TBEC Take 1 tablet by mouth daily 2014 ASPIRIN 74695207024 No Longer Active Yolande Lindsay MD PhD Active ZOFRAN ODT 4 MG TBDP 1 pill dissolved by mouth every 4 hours if needed for nausea ONDANSETRON 57071906361 No Longer Active Yolande Lindsay MD PhD Active CEFTIN 500 MG TAB 1 twice a day CEFUROXIME AXETIL 94632621447 No Longer Active Yolande Lindsay MD PhD Active ALBUTEROL SULFATE 0.083 % [facility] one vial per nebulizer every 4-6 hours as needed ALBUTEROL SULFATE 37021829456 No Longer Active Alexis Ordaz MD Active DOXYCYCLINE HYCLATE 100 MG CAP 1 cap by mouth twice daily DOXYCYCLINE HYCLATE 29874683034 No Longer Active Yolande Lindsay MD PhD Active CYCLOBENZAPRINE HCL 10 MG TABS 1/2 - 1 tab by mouth three times daily if needed for spasms/pain CYCLOBENZAPRINE HCL 10193926961 No Longer Active Yolande Lindsay MD PhD Active AZITHROMYCIN 250 MG TABS 2 pills on day 1, then 1 pill daily x 4 days AZITHROMYCIN 34780320512 No Longer Active Yolande Lindsay MD PhD Active XOPENEX 1.25 MG/3ML NEBU 1 neb every 4 hours if needed for cough/congestion LEVALBUTEROL HCL 23497430239 No Longer Active Yolande Lindsay MD PhD Active DOXYCYCLINE HYCLATE 100 MG TAB 1 tab twice a day for 14 days 2013 DOXYCYCLINE HYCLATE 49634132797 No Longer Active Yolande Lindsay MD PhD Active PREVACID 30 MG CPDR Take 1 tablet by mouth daily-PRN LANSOPRAZOLE 90622992530 No Longer Active Yolande Lindsay MD PhD Active PA VITAMIN D-3 2000 UNIT CAPS 1 CAP PO DAILY CHOLECALCIFEROL 05917509626 No Longer Active Yolande Lindsay MD PhD Active CEFDINIR 300 MG CAPS by mouth twice a day CEFDINIR 57077926560 No Longer Active Gab Padron MD Active TOPAMAX 50 MG TABS 1 PO twice daily TOPIRAMATE 35640081652 Active Yolande Lindsay MD PhD Active AZITHROMYCIN 250 MG TABS 2 po qd x 1 day, then 1 po qd x 4 days AZITHROMYCIN 39155896751 No Longer Active Yolande Lindsay MD PhD Active DICLOFENAC SODIUM 75 MG TBEC 1 tablet by q 12 hours PRN headaches DICLOFENAC SODIUM 31123818643 No Longer Active Yolande Lindsay MD PhD Active FLONASE 50 MCG/ACT SUSP 1 spray each nostril am and hs FLUTICASONE PROPIONATE 54835659982 No Longer Active Todd Callaway MD Active ANUSOL-HC 25 MG SUPPOSITORY 1 rectally twice a day as needed for hemorrhoids HYDROCORTISONE JAYDEN (RECTAL) 68556556581 No Longer Active Yolande Lindsay MD PhD Active ANUSOL-HC 25 MG SUPPOSITORY 1 suppository rectally each evening as needed for anal fissure HYDROCORTISONE JAYDEN (RECTAL) 44090546103 No Longer Active Bozena JaredEDELMIRAFeliciano Active VALIUM 5 MG TAB 1 po 30 minutes prior to your MRI DIAZEPAM 86952263896 No Longer Active LONNIE Iglesias Active METHOCARBAMOL 750 MG TABS 1 PO QID PRN METHOCARBAMOL 65860670847 No Longer Active Daphne Wetzel IT ASSOCIATE Active NITROSTAT 0.4 MG SUBL as directed NITROGLYCERIN 74179453171 No Longer Active Jibernabe Sarah IT ASSOCIATE Active ROBAXIN-750 750 MG TABS 2 four times a day for 3 days as needed for muscle spasm, then 1 four times a day as needed METHOCARBAMOL 21393691734 No Longer Active Rodrigo Sarah APRN Active HYDROCODONE-ACETAMINOPHEN 5-325 MG TABS 1 q 4-6 hrs prn HYDROCODONE-ACETAMINOPHEN 23191175799 No Longer Active Rodrigo Sarah APRN Active VERAPAMIL HCL CR 180 MG CR-TABS TAKE 1 TAB DAILY VERAPAMIL HCL 69859958802 No Longer Active Yolande Lindsay MD PhD Active BACTRIM DS 800-160 MG TAB 1 tab by mouth twice daily TRIMETHOPRIM-SULFAMETHOXAZOLE 73568820150 No Longer Active Yolande Lindsay MD PhD Active NEXIUM 40 MG PACK 1 by mouth daily ESOMEPRAZOLE MAGNESIUM 19815101693 No Longer Active Des Hines MD Active EPIPEN 2-CHARLETTE 0.3 MG/0.3ML OMARI as need for allergic reaction EPINEPHRINE 08001252260 Active Yolande Lindsay MD PhD Active NEXIUM 40 MG CPDR 1 PO Q D DAY ESOMEPRAZOLE MAGNESIUM 15355153428 No Longer Active Sadia Perry RN Active ALBUTEROL SULFATE 0.083 % NEBU SOLN one vial per nebulizer every 4-6 hours as needed ALBUTEROL SULFATE 0.083 % NEBU SOLN 026496 ALBUTEROL SULFATE Inactive ANUSOL-HC 25 MG SUPPOSITORY 1 suppository rectally each evening as needed for anal fissure ANUSOL-HC 25 MG SUPPOSITORY 4851263 HYDROCORTISONE JAYDEN (RECTAL) Inactive ANUSOL-HC 25 MG SUPPOSITORY 1 rectally twice a day as needed for hemorrhoids ANUSOL-HC 25 MG SUPPOSITORY 3837663 HYDROCORTISONE JAYDEN (RECTAL) Inactive BACTRIM DS 800-160 MG TAB 1 tab by mouth twice daily BACTRIM DS 800-160 MG TAB 19820606 TRIMETHOPRIM-SULFAMETHOXAZOLE Inactive BACTRIM DS 800-160 MG TAB 1 tab by mouth twice daily BACTRIM DS 800-160 MG TAB 666510 TRIMETHOPRIM-SULFAMETHOXAZOLE Inactive CEFTIN 500 MG TAB 1 twice a day CEFTIN 500 MG TAB 419533 CEFUROXIME AXETIL Inactive CEFTIN 500 MG TAB 1 twice a day CEFTIN 500 MG TAB 832999 CEFUROXIME AXETIL Inactive CHERATUSSIN AC 100-10 MG/5ML SYRP 1 tsp by mouth every 4 hours as needed for cough CHERATUSSIN AC 100-10 MG/5ML SYRP 922708 GUAIFENESIN-CODEINE Inactive CYCLOBENZAPRINE HCL 10 MG TABS 1/2 - 1 tab by mouth three times daily if needed for spasms/pain CYCLOBENZAPRINE HCL 10 MG TABS 275935 CYCLOBENZAPRINE HCL Inactive DOXYCYCLINE HYCLATE 100 MG CAP 1 cap by mouth twice daily DOXYCYCLINE HYCLATE 100 MG CAP 9314324 DOXYCYCLINE HYCLATE Inactive DOXYCYCLINE HYCLATE 100 MG TAB 1 tab twice a day for 14 days 2013 DOXYCYCLINE HYCLATE 100 MG TAB 4791822 DOXYCYCLINE HYCLATE Inactive FUROSEMIDE 20 MG TABS 1 pill by mouth daily, for edema FUROSEMIDE 20 MG TABS 083258 FUROSEMIDE Inactive LEVOTHYROXINE SODIUM 75 MCG TABS Take 1 tab daily LEVOTHYROXINE SODIUM 75 MCG TABS 754036 LEVOTHYROXINE SODIUM Inactive METHOCARBAMOL 750 MG TABS 1 PO QID PRN METHOCARBAMOL 750 MG TABS 140873 METHOCARBAMOL Inactive NIACIN 500 MG TABS 1 pill by mouth nightly x 1 week, then 2 pills x 1 week, then 3 pills x 1 week, then 4 pills nightly - take after evening meal, with applesauce or an apple NIACIN 500 MG TABS 231475 NIACIN Inactive NITROSTAT 0.4 MG SUBL as directed NITROSTAT 0.4 MG SUBL 799182 NITROGLYCERIN Inactive POLYTRIM 36523-6.1 UNIT/ML-% SOLN 1 gtt to affected eye q3h x 7 days POLYTRIM 78032-6.1 UNIT/ML-% SOLN 700692 POLYMYXIN B- TRIMETHOPRIM Inactive PREDNISONE 20 MG TAB 2 tabs daily for 3 days, 1 tab daily for 3 days, 1/2 tab daily for 2 days PREDNISONE 20 MG TAB 825076 PREDNISONE Inactive ROBAXIN-750 750 MG TABS 2 four times a day for 3 days as needed for muscle spasm, then 1 four times a day as needed ROBAXIN-750 750 MG TABS 081203 METHOCARBAMOL Inactive VALIUM 5 MG TAB 1 po 30 minutes prior to your MRI VALIUM 5 MG TAB 546500 DIAZEPAM Inactive VERAPAMIL HCL CR 180 MG CR-TABS TAKE 1 TAB DAILY VERAPAMIL HCL CR 180 MG CR-TABS VERAPAMIL HCL Inactive PREVACID 30 MG CPDR Take 1 tablet by mouth daily-PRN PREVACID 30 MG CPDR 783217 LANSOPRAZOLE Inactive DICLOFENAC SODIUM 75 MG TBEC 1 tablet by q 12 hours PRN headaches DICLOFENAC SODIUM 75 MG TBEC 946014 DICLOFENAC SODIUM Inactive OXYCODONE HCL 5 MG ORAL CAPS 1 TAB PO Q HS OXYCODONE HCL 5 MG ORAL CAPS 4110135 OXYCODONE HCL Inactive AZITHROMYCIN 250 MG TABS 2 po qd x 1 day, then 1 po qd x 4 days AZITHROMYCIN 250 MG TABS 5823222 AZITHROMYCIN Inactive AZITHROMYCIN 250 MG TABS 2 po qd x 1 day, then 1 po qd x 4 days AZITHROMYCIN 250 MG TABS 5606709 AZITHROMYCIN Inactive AZITHROMYCIN 250 MG TABS 2 pills on day 1, then 1 pill daily x 4 days AZITHROMYCIN 250 MG TABS 9949538 AZITHROMYCIN Inactive ADULT ASPIRIN EC LOW STRENGTH 81 MG TBEC Take 1 tablet by mouth daily 2014 ADULT ASPIRIN EC LOW STRENGTH 81 MG TBEC 808531 ASPIRIN Inactive NIASPAN 500 MG ORAL CR-TABS 1 pill nightly x 1 week, then 2 pills nightly x 1 week, then 3 pills nightly x 1 week, then 4 pills nightly NIASPAN 500 MG ORAL CR-TABS NIACIN (ANTIHYPERLIPIDEMIC) Inactive CEFDINIR 300 MG CAPS by mouth twice a day CEFDINIR 300 MG CAPS 194779 CEFDINIR Inactive CEFDINIR 300 MG CAPS 1 po BID x 10 days CEFDINIR 300 MG CAPS 016314 CEFDINIR Inactive ZOFRAN ODT 4 MG TBDP 1 pill dissolved by mouth every 4 hours if needed for nausea ZOFRAN ODT 4 MG TBDP 185143 ONDANSETRON Inactive XOPENEX 1.25 MG/3ML NEBU 1 neb every 4 hours if needed for cough/congestion XOPENEX 1.25 MG/3ML NEBU 744644 LEVALBUTEROL HCL Inactive FLONASE 50 MCG/ACT SUSP 1 spray each nostril am and hs FLONASE 50 MCG/ACT SUSP 0319503 FLUTICASONE PROPIONATE Inactive HYDROCODONE-ACETAMINOPHEN 5-325 MG TABS 1 q 4-6 hrs prn HYDROCODONE-ACETAMINOPHEN 5-325 MG TABS 651981 HYDROCODONE-ACETAMINOPHEN Inactive FLUTICASONE PROPIONATE 50 MCG/ACT SUSP 1 to 2 sprays each nostril daily 04/21 FLUTICASONE PROPIONATE 50 MCG/ACT SUSP 3579787 FLUTICASONE PROPIONATE Inactive NEXIUM 40 MG PACK [...] Fluvirin, Fluarix, Agriflu(>=18 yo)) Fluzone (>3 yrs.) [PVA412] Influenza, seasonal, injectable influenza immunization (Flu Vax) has been administered Influenza - Unspecified Formulation [CVX88] influenza virus vaccine, unspecified formulation pneumococcal immunization administered Pneumovax 23 [CVX33] pneumococcal polysaccharide vaccine, 23 valent Seasonal influenza vaccine, injectable, containing preservative, for > 3 years old (Afluria, FluLaval, Fluzone, Fluvirin, Fluarix, Agriflu(>=18 yo)) Fluzone (>3 yrs.) [VCH942] Influenza, seasonal, injectable dT (Diphtheria and Tetanus) booster given given Td(adult) unspecified formulation Boostrix (Tetanus toxoid, reduced diphtheria toxoid and acellular pertussis vaccine, adsorbed), booster Boostrix [NBQ823] tetanus toxoid, reduced diphtheria toxoid, and acellular [...] Panel - Chemistry sodium, serum 142 mmol/L 735-460 7366/06/30 potassium, serum 4.4 mmol/L 3.5-5.2 chloride, serum 108 mmol/L 98-107 carbon dioxide, venous blood 25.1 mmol/L 21.0-32.0 blood glucose 82 mg/dL 65-110 calcium, serum 9.1 mg/dL 8.5-10.1 urea nitrogen, blood 18 mg/dL 7-18 creatinine, serum 1.31 mg/dL 0.55-1.30 Lab Report: Lipid Panel, HEPATIC PANEL - Chemistry cholesterol, serum 166 mg/dL 765-786 7066/12/06 triglyceride, serum, fasting 86 mg/dL 30-200 HDL [...] dipstick Negative Negative sodium, serum 142 mmol/L 083-865 1994/07/18 carbon dioxide, venous blood 27.8 mmol/L 21.0-32.0 [...] negative Encounters Code Encounter Date Provider Facility CPT-87865 Level 3 Est. Patient 15:20:50 CDT Jared Og MD [facility] CPT-80394 Level 3 Est. Patient 17:43:55 CIRCUIT BOARD INSPECTOR Gab Padron MD [facility] CPT-62739 Level 3 Est. Patient 17:07:49 CIRCUIT BOARD INSPECTOR Jared Og MD [facility] CPT-37875 Level 4 Est. Patient 19:55:18 CIRCUIT BOARD INSPECTOR Jared Og MD [facility] CPT-60806 Level 3 Est. Patient 20:13:34 CIRCUIT BOARD INSPECTOR Jared Og MD [facility] CPT-64597 Level 4 Est. Patient 16:31:27 CDT Gab Padron MD [facility] CPT-11315 Level 2 Est. Patient 12:23:38 CDT Jared Og MD [facility] CPT-62257 Level 3 Est. Patient 11:01:51 CDT Gab Padron MD [facility] CPT-06633 Level 3 Est. Patient 15:27:02 CDT Jared Og MD [facility] CPT-02899 Level 4 Est. Patient 09:25:27 CDT Gab Padron MD [facility]-00663 Level 3 Est. Patient 10:29:41 CDT Rodrigo Sarah [facility]-29516 Level 4 Est. Patient 17:51:05 CDT Gab Padron MD [facility]-42538 Level 3 Est. Patient 14:18:08 CDT Gab Padron MD [facility]-01592 Level 4 Est. Patient 10:18:54 CDT Gab Padron MD [facility]-07717 Level 3 Est. Patient 11:30:07 CDT Rodrigo Sarah [facility]-10309 Level 4 Est. Patient 21:02:30 CIRCUIT BOARD INSPECTOR Gab Padron MD [facility]-97371 Level 3 Est. Patient 11:02:19 CIRCUIT BOARD INSPECTOR Gab Padron MD [facility] CPT-67311 Level 4 Est. Patient 22:24:31 CIRCUIT BOARD INSPECTOR Gab Padron MD [facility] CPT-00440 Level 3 Est. Patient 18:33:46 CIRCUIT BOARD INSPECTOR Gab Padron MD [facility] CPT-24002 Level 3 Est. Patient 16:19:11 CDT Yolande Lindsay MD [facility]-10084 Level 3 Est. Patient 18:59:14 CDT Yolande Lindsay MD [facility]-81413 Level 4 Est. Patient 21:29:26 CDT Yolande Lindsay MD [facility]-09179 Level 3 Est. Patient 07:37:45 CDT Yolande Lindsay MD [facility] CPT-04084 Level 3 Est. Patient 17:03:46 CDT Yolande Lindsay MD [facility]-82257 Level 4 Est. Patient 20:02:13 CIRCUIT BOARD INSPECTOR Yolande Lindsay MD [facility] CPT-23611 Level 3 Est. Patient 16:02:07 CIRCUIT BOARD INSPECTOR Alexis Ordaz MD [facility] CPT-57876 Level 3 Est. Patient 12:41:24 CIRCUIT BOARD INSPECTOR Yolande Lindsay MD [facility]-31445 Level 3 Est. Patient 15:41:20 CIRCUIT BOARD INSPECTOR Yolande Lindsay MD [facility]-09157 Level 3 Est. Patient 13:20:02 CIRCUIT BOARD INSPECTOR Yolande Lindsay MD [facility]-36918 Level 3 Est. Patient 15:00:38 CDT Jared Og MD [facility] CPT-27056 Level 3 Est. Patient 10:22:32 CDT Yolande Lindsay MD [facility]-46015 Level 3 Est. Patient 17:12:58 CDT Yolande Lindsay MD [facility] CPT-82043 Level 4 Est. Patient 13:30:58 CDT Yolande Lindsay MD [facility] CPT-70835 Level 4 New Patient 09:02:42 CDT Jared Og MD [facility]-12132 Level 3 Est. Patient 08:19:07 CDT Yolande Lindsay MD [facility]-71627 Level 3 Est. Patient 12:00:13 CIRCUIT BOARD INSPECTOR Gab Padron MD [facility] CPT-36801 Level 3 Est. Patient 16:15:23 CIRCUIT BOARD INSPECTOR Yolande Lindsay MD [facility]-44818 Level 2 Est. Patient 19:47:15 CDT Yolande Lindsay MD [facility]-39598 Level 3 Est. Patient 21:38:31 CDT Yolande Lindsay MD [facility]-13743 Level 3 Est. Patient 10:25:12 CDT Adiel PERAZA [facility]-14264 Level 4 Est. Patient 10:51:58 CDT Yolande Lindsay MD [facility]-63195 Level 3 Est. Patient 14:04:55 CIRCUIT BOARD INSPECTOR Rodrigo Sarah [id number] Level 3 Est. Patient 10:46:35 CIRCUIT BOARD INSPECTOR Rodrigo Sarah [phone] Level 3 Est. Patient 14:24:37 CIRCUIT BOARD INSPECTOR Yolande Lindsay MD [facility]-33680 Level 3 Est. Patient 17:41:58 CIRCUIT BOARD INSPECTOR Yolande Lindsay MD [facility]-35280 Level 2 Est. Patient 22:01:41 CIRCUIT BOARD INSPECTOR Rodrigo Sarah [id number] Level 2 Est. Patient 22:01:11 CIRCUIT BOARD INSPECTOR Rodrigo Sarah [id number] Level 3 Est. Patient 10:12:29 CIRCUIT BOARD INSPECTOR Rodrigo Sarah [facility] CPT-85391 Level 3 Est. Patient 11:05:44 CDT Alexis Ordaz MD [facility]-90616 Level 3 Est. Patient 14:57:20 CDT Yolande Lindsay MD [facility]-41838 Level 3 Est. Patient 14:40:57 CDT Yolande Lindsay MD [facility]10122 Level 3 Est. Patient 20:55:40 CDT Yolande Lindsay MD PhD [facility] CPT-78260 Level 3 Est. Patient 12:42:38 CIRCUIT BOARD INSPECTOR Yolande Lindsay MD PhD [facility] CPT-48171 Level 3 Est. Patient 11:54:49 CIRCUIT BOARD INSPECTOR Des Hines MD [facility] CPT-87510 Level 3 Est. Patient 17:06:38 CDT Dewayne PERAZA [facility] Procedures Code Procedure Name Date Entry Date Standard Description CPT-20423 Hip, complete, 2-3 views - XRAY USE ONLY 17:19:04 CIRCUIT BOARD INSPECTOR CPT-15397 Venipuncture Draw Fee 08:37:59 CIRCUIT BOARD INSPECTOR CPT-32492 Liver Profile - LAB USE ONLY 08:37:59 CIRCUIT BOARD INSPECTOR CPT-05117 Lipid - LAB USE ONLY 08:37:58 CIRCUIT BOARD INSPECTOR CPT-61350 First Vx - Ix admin via ID IM or jet injects without counseling by physician 11:52:31 CDT CPT-01203 Fluzone Preservative Free Intramuscular Suspension 11:52 :31 CDT CPT-20886 Foot, left, comp min 3V - XRAY USE ONLY 09:24:54 CDT CPT-28642 Abd single AP View - XRAY USE ONLY 11:16:17 CDT CPT-32218 T spine AP/ Lat - XRAY USE ONLY 09:34:21 CDT CPT-07520 Chest 2V Frontal and Lat - XRAY USE ONLY 10:48:51 CDT CPT-75899 LS spine comp w obliq 13:28:00 CIRCUIT BOARD INSPECTOR CPT-J1040 Depo Medrol 80 mg (Methyl Prednisolone Acetate) 10:51: 28 CIRCUIT BOARD INSPECTOR CPT-J1100 Decadron 8mg (Dexamethasone) 10:51:28 CIRCUIT BOARD INSPECTOR CPT-18153 Abx/Therapy Injection 10:51:28 CIRCUIT BOARD INSPECTOR CPT-J1100 Decadron 8mg (Dexamethasone) 21:02:30 CIRCUIT BOARD INSPECTOR CPT-J1040 Depo Medrol 80 mg (Methyl Prednisolone Acetate) 21:02: 30 CIRCUIT BOARD INSPECTOR [id number] Event Monitor - MC Transmission 09:12:32 CDT 08/06 [id number] Event Monitor - MC review and interp 09:12:32 CDT [id number] Event Monitor - MC recording 09:12:32 CDT CPT-95168 EKG Trac and Interp 16:50:22 CDT CPT-J1030 Depo Medrol 40 mg (Methyl Prednisolone Acetate) 17:05: 54 CDT CPT-J1100 Decadron 4mg (Dexamethasone) 17:05:54 CDT CPT-88653 Abx/Therapy Injection 17:05:54 CDT CPT-J1100 Decadron 4mg (Dexamethasone) 16:55:28 CDT CPT-J1030 Depo Medrol 40 mg (Methyl Prednisolone Acetate) 16:55: 28 CDT CPT-46273 Ankle Complete - Min 3V 15:58:50 CDT CPT-65414 Knee 3V 15:58:50 CDT CPT-22788 Hip comp min 2V 15:58:50 CDT CPT-J2270 Morphine Sulfate 10 mg 14:25:44 CIRCUIT BOARD INSPECTOR CPT-J2550 Phenergan 12.5 mg (Promethazine) 14:25:44 CIRCUIT BOARD INSPECTOR CPT-31070 Abx/Therapy Injection 14:25:44 CIRCUIT BOARD INSPECTOR CPT-J2550 Phenergan 12.5 mg (Promethazine) 14:08:03 CIRCUIT BOARD INSPECTOR CPT-J2270 Morphine Sulfate 10 mg 14:08:03 CIRCUIT BOARD INSPECTOR CPT-53940 Bladder Scan 15:00:38 CDT CPT-TCMM Transitional Care Mgmt-Moderate 09:52:22 CDT CPT-J1030 Depo Medrol 40 mg (Methyl Prednisolone Acetate) 10:55: 18 CDT CPT-J1100 Decadron 4mg (Dexamethasone) 10:55:18 CDT CPT-69480 Abx/Therapy Injection 10:55:18 CDT CPT-J1030 Depo Medrol 40 mg (Methyl Prednisolone Acetate) 10:22: 32 CDT CPT-J1100 Decadron 4mg (Dexamethasone) 10:22:32 CDT CPT-67362 Postop F/U Visit 14:37:13 CDT CPT-26789 Ankle Complete - Min 3V 17:11:58 CDT CPT-08562 Foot comp min 3V 17:11:58 CDT CPT-01972 Bladder Scan 09:56:58 CDT CPT-87739 Postop F/U Visit 09:56:58 CDT CPT-12342 Cystoscopy 09:02:42 CDT CPT-79626 Bladder Scan 09:02:42 CDT CPT-37227 Abd single AP View 16:00:35 CDT CPT-97793 Administration single or combination vaccine inc oral 10 :15:43 CDT CPT-54858 Influenza split virus > age 3 10:15:43 CDT CPT-37656 Nail Avulsion 09:24:57 CDT CPT-OV Office Visit 11:15:41 CDT CPT-18956 Abx/Therapy Injection 10:51:30 CDT CPT-J3301 Kenalog 40 mg (Triamcinolone Acetonide) 10:25:12 CDT CPT-J1100 Decadron 4mg (Dexamethasone) 10:25:12 CDT CPT-94257 Anoscopy diagnostic 10:36:12 CDT CPT-OV Office Visit 15:34:31 CDT CPT-61975 Abx/Therapy Injection 08:21:15 CIRCUIT [employer]ARD INSPECTOR CPT-J1885 Toradol 60 mg (Ketorolac) 10:46:35 CIRCUIT [employer]ARD INSPECTOR CPT-OV Office Visit 19:51:16 CIRCUIT BOARD INSPECTOR CPT-77048 Spec Collection and Handling Fee 14:34:18 CIRCUIT [employer]ARD INSPECTOR CPT-PV Prev. 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
--- OUTSIDE RECORDS SUMMARY | 2017-03-22 02:19 | XMS REPORT ---
Author Author [facility] Medical Staff Organization [facility] Address [address] [id number] Phone [phone] Care Team Providers Care Supervisor Of Guidance And Testing Name Role Phone EVELYN SPEARS MD PP [phone] Summary purpose TRANSITION OF CARE AUTO GENERATION [...]
--- OUTSIDE RECORDS SUMMARY | 2017-03-22 02:19 | XMS REPORT | Clinical Summary ---
Author Author Admin, E Organization [facility] Address Unknown Phone Unavailable Allergies, Adverse Reactions, Alerts Allergy Name Reaction Description Start Date Severity Status Provider VALENTIN Critical Active Rodrigo Fracharlottel C JAVA DEVELOPER CHLORHEXIDINE GLUCONATE tongue and gums swollen Critical Active Hoadante Otto RMA NORFLEX Rash Critical Active Silvestrellina Frazell C JAVA DEVELOPER TRAZODONE HCL sees things Critical Active [...] and foot Foot pain, right 729.5 Resolved Yoladne Lindsay MD PhD Pain in limb Tick [...] MD Lumbago Cough 786.2 Active Jillina Tyrel C JAVA DEVELOPER Cough 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 Jillina Frazellilian C JAVA DEVELOPER 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 Anemia 285.9 Active Gab Padron MD Anemia, unspecified Conjunctivitis 372.30 Active Jillnacho Sarah APRN Conjunctivitis, unspecified Sinusitis 473.9 Active Silvestrellina Frazell C JAVA DEVELOPER Unspecified sinusitis (chronic) Nonspecific syndrome suggestive of viral illness 079.99 Active Jillina Frazell C JAVA DEVELOPER Unspecified viral infection Laryngitis 464.00 Active Jillina Frazell C JAVA DEVELOPER Acute laryngitis without mention of obstruction [...] Flank pain, left 789.09 Active Jillina Frazell C JAVA DEVELOPER Abdominal pain, other specified site; multiple sites Abdominal pain, generalized 789.07 Active Jillina Farshadzell C JAVA DEVELOPER Abdominal pain, generalized Back pain, thoracic region, left 724.1 Active Jillina Frazell C JAVA DEVELOPER Pain in thoracic spine Abdominal pain, [...] every 6 hrs prn pain TRAMADOL HCL 05660726647 Active Gab Padron MD Active PREDNISONE 20 MG TAB 2 tabs daily for 3 days, 1 tab daily for 3 days, 1/2 tab daily for 2 days PREDNISONE 27317156283 No Longer Active Gab Padron MD Active ZOFRAN ODT 4 MG TBDP 1 po q6hr PRN Nausea ONDANSETRON 08691678838 Active Gab Padron MD Active IBUPROFEN 600 MG TAB 1 tablet by mouth every 6 hours for 7 days, then 1 tablet every 6 hours as needed. Take with food IBUPROFEN 88467920993 Active Jillina Frazell C JAVA DEVELOPER Active BACTRIM DS 800-160 MG TAB 1 tab by mouth twice daily TRIMETHOPRIM-SULFAMETHOXAZOLE 73015868353 No Longer Active Gab Padron MD Active ADVAIR DISKUS 250-50 MCG/DOSE AEPB 1 puff BID FLUTICASONE- SALMETEROL 43252402084 Active Silvestrellnacho Sarah APRN Active LEVOTHYROXINE SODIUM 75 MCG TABS Take 1 tab daily LEVOTHYROXINE SODIUM 91135706412 No Longer Active Mariana Medellinelise [facility] Active SYNTHROID 88 MCG ORAL TABS Take one by mouth daily LEVOTHYROXINE SODIUM 96696236055 Active Gab Padron MD Active CHERATUSSIN AC 100-10 MG/5ML SYRP 1 tsp by mouth every 4 hours as needed for cough GUAIFENESIN-CODEINE 95730002031 No Longer Active Gab Padorn MD Active POLYTRIM 67184-6.1 UNIT/ML-% SOLN 1 gtt to affected eye q3h x 7 days POLYMYXIN B-TRIMETHOPRIM 66154345523 No Longer Active Gab Padron MD Active FLUTICASONE PROPIONATE 50 MCG/ACT SUSP 1 to 2 sprays each nostril daily 04/21 FLUTICASONE PROPIONATE 37028357485 No Longer Active Gab Padron MD Active TRILEPTAL 600 MG TABS Take one 1 tablet in Am and 1 tablet at night OXCARBAZEPINE 63292704977 Active Gab Padron MD Active CEFDINIR 300 MG CAPS 1 po BID x 10 days CEFDINIR 39551343005 No Longer Active Rodrigo Sarah APRN Active CEFTIN 500 MG TAB 1 twice a day CEFUROXIME AXETIL 88907978493 No Longer Active Gab Padron MD Active AZITHROMYCIN 250 MG TABS 2 po qd x 1 day, then 1 po qd x 4 days AZITHROMYCIN 11300600730 No Longer Active Rodrigo Sarah APRN Active CLARITIN 10 MG TAB 1 tablet by mouth daily as needed for allergies LORATADINE 24929217661 Active Rodrigo Sarah APRN Active OXYCODONE HCL 5 MG ORAL CAPS 1 TAB PO Q HS OXYCODONE HCL 18226268018 No Longer Active Rodrigo Sarah APRN Active NIASPAN 500 MG ORAL CR-TABS 1 pill nightly x 1 week, then 2 pills nightly x 1 week, then 3 pills nightly x 1 week, then 4 pills nightly NIACIN (ANTIHYPERLIPIDEMIC) 31011478000 No Longer Active Rodrigo Sarah APRN Active NIACIN 500 MG TABS 1 pill by mouth nightly x 1 week, then 2 pills x 1 week, then 3 pills x 1 week, then 4 pills nightly - take after evening meal, with applesauce or an apple NIACIN 79946854925 No Longer Active Yolande Lindsay MD PhD Active FISH OIL 1000 MG CAPS 3 pills daily OMEGA-3 FATTY ACIDS 03213069746 Active Yolande Lindsay MD PhD Active TRIAMCINOLONE ACETONIDE 0.1 % CREA apply bid sparingly to rash TRIAMCINOLONE ACETONIDE 36065403765 Active Yolande Lindsay MD PhD Active FUROSEMIDE 20 MG TAB 1 tablet by mouth daily FUROSEMIDE 58422420768 Active Tisha Lambert APRN Active LISINOPRIL 20 MG ORAL TABS 1 tab by mouth daily LISINOPRIL 85688247617 Active Tisha Fausto C JAVA DEVELOPER Active FUROSEMIDE 20 MG TABS 1 pill by mouth daily, for edema FUROSEMIDE 89657340378 No Longer Active Yolande Lindsay MD PhD Active ATORVASTATIN CALCIUM 10 MG TABS 1 pill by mouth daily, for cholesterol 09/06 ATORVASTATIN CALCIUM 71014765533 Active Gab Padron MD Active CALCIUM 600+D PLUS MINERALS 600-400 MG-UNIT ORAL CHEW 1 tab by mouth daily CALCIUM CARBONATE-VIT D-MIN 78373184789 No Longer Active Yolande Lindsay MD PhD Active CYCLOBENZAPRINE HCL 10 MG TABS 1 tablet by mouth three times daily as needed for muscle spasm/pain CYCLOBENZAPRINE HCL 47844360940 Active Yolande Lindsay MD PhD Active ONDANSETRON 4 MG TBDP 1 q4h PRN nausea ONDANSETRON 36871951026 Active Yolande Lindsay MD PhD Active ADULT ASPIRIN EC LOW STRENGTH 81 MG TBEC Take 1 tablet by mouth daily 2014 ASPIRIN 23902964583 No Longer Active Yolande Lindsay MD PhD Active ZOFRAN ODT 4 MG TBDP 1 pill dissolved by mouth every 4 hours if needed for nausea ONDANSETRON 61878218609 No Longer Active Yolande Lindsay MD PhD Active CEFTIN 500 MG TAB 1 twice a day CEFUROXIME AXETIL 19096162908 No Longer Active Yolande Lindsay MD PhD Active ALBUTEROL SULFATE 0.083 % [facility] SOLN one vial per nebulizer every 4-6 hours as needed ALBUTEROL SULFATE 20663862406 No Longer Active Alexis Ordaz MD Active DOXYCYCLINE HYCLATE 100 MG CAP 1 cap by mouth twice daily DOXYCYCLINE HYCLATE 18967048187 No Longer Active Yolande Lindsay MD PhD Active CYCLOBENZAPRINE HCL 10 MG TABS 1/2 - 1 tab by mouth three times daily if needed for spasms/pain CYCLOBENZAPRINE HCL 59481061063 No Longer Active Yolande Lindsay MD PhD Active AZITHROMYCIN 250 MG TABS 2 pills on day 1, then 1 pill daily x 4 days AZITHROMYCIN 75887845973 No Longer Active Yolande Lindsay MD PhD Active XOPENEX 1.25 MG/3ML NEBU 1 neb every 4 hours if needed for cough/congestion LEVALBUTEROL HCL 48510957458 No Longer Active Yolande Lindsay MD PhD Active DOXYCYCLINE HYCLATE 100 MG TAB 1 tab twice a day for 14 days 2013 DOXYCYCLINE HYCLATE 21473943809 No Longer Active Yolande Lindsay MD PhD Active PREVACID 30 MG CPDR Take 1 tablet by mouth daily-PRN LANSOPRAZOLE 72941496948 No Longer Active Yolande Lindsay MD PhD Active PA VITAMIN D-3 2000 UNIT CAPS 1 CAP PO DAILY CHOLECALCIFEROL 00412489154 No Longer Active Yolande Lindsay MD PhD Active CEFDINIR 300 MG CAPS by mouth twice a day CEFDINIR 93672194031 No Longer Active Gab Padron MD Active TOPAMAX 50 MG TABS 1 PO twice daily TOPIRAMATE 41166033787 Active Yoalnde Lindsay MD PhD Active AZITHROMYCIN 250 MG TABS 2 po qd x 1 day, then 1 po qd x 4 days AZITHROMYCIN 18432628143 No Longer Active Yolande Lindsay MD PhD Active DICLOFENAC SODIUM 75 MG TBEC 1 tablet by q 12 hours PRN headaches DICLOFENAC SODIUM 44670215429 No Longer Active Yolande Lindsay MD PhD Active FLONASE 50 MCG/ACT SUSP 1 spray each nostril am and hs FLUTICASONE PROPIONATE 79026509364 No Longer Active Todd Callaway MD Active ANUSOL-HC 25 MG SUPPOSITORY 1 rectally twice a day as needed for hemorrhoids HYDROCORTISONE JAYDEN (RECTAL) 60898520859 No Longer Active Yolande Lindsay MD PhD Active ANUSOL-HC 25 MG SUPPOSITORY 1 suppository rectally each evening as needed for anal fissure HYDROCORTISONE JAYDEN (RECTAL) 80001700764 No Longer Active Bozena Coleman EDELMIRAFeliciano Active VALIUM 5 MG TAB 1 po 30 minutes prior to your MRI DIAZEPAM 04923919995 No Longer Active LONNIE Iglesias Active METHOCARBAMOL 750 MG TABS 1 PO QID PRN METHOCARBAMOL 01378680681 No Longer Active Daphne Wetzel C JAVA DEVELOPER Active NITROSTAT 0.4 MG SUBL as directed NITROGLYCERIN 83652284297 No Longer Active Jillnacho Sarah C JAVA DEVELOPER Active ROBAXIN-750 750 MG TABS 2 four times a day for 3 days as needed for muscle spasm, then 1 four times a day as needed METHOCARBAMOL 39681522802 No Longer Active Jillnacho Sarah APRN Active HYDROCODONE-ACETAMINOPHEN 5-325 MG TABS 1 q 4-6 hrs prn HYDROCODONE-ACETAMINOPHEN 98731505128 No Longer Active Jillina Tyrel C JAVA DEVELOPER Active VERAPAMIL HCL CR 180 MG CR-TABS TAKE 1 TAB DAILY VERAPAMIL HCL 75751851072 No Longer Active Yolande Lindsay MD PhD Active BACTRIM DS 800-160 MG TAB 1 tab by mouth twice daily TRIMETHOPRIM-SULFAMETHOXAZOLE 01217060837 No Longer Active Yolande Lindsay MD PhD Active NEXIUM 40 MG PACK 1 by mouth daily ESOMEPRAZOLE MAGNESIUM 46344467405 No Longer Active Des Hines MD Active EPIPEN 2-CHARLETTE 0.3 MG/0.3ML OMARI as need for allergic reaction EPINEPHRINE 60834701244 Active Yolande Lindsay MD PhD Active NEXIUM 40 MG CPDR 1 PO Q D DAY ESOMEPRAZOLE MAGNESIUM 63779915717 No Longer Active Sadia Perry RN Active ALBUTEROL SULFATE 0.083 % NEBU SOLN one vial per nebulizer every 4-6 hours as needed ALBUTEROL SULFATE 0.083 % NEBU SOLN 378654 ALBUTEROL SULFATE Inactive ANUSOL-HC 25 MG SUPPOSITORY 1 suppository rectally each evening as needed for anal fissure ANUSOL-HC 25 MG SUPPOSITORY 3667558 HYDROCORTISONE JAYDEN (RECTAL) Inactive ANUSOL-HC 25 MG SUPPOSITORY 1 rectally twice a day as needed for hemorrhoids ANUSOL-HC 25 MG SUPPOSITORY 1236883 HYDROCORTISONE JAYDEN (RECTAL) Inactive BACTRIM DS 800-160 MG TAB 1 tab by mouth twice daily BACTRIM DS 800-160 MG TAB 19820606 TRIMETHOPRIM-SULFAMETHOXAZOLE Inactive BACTRIM DS 800-160 MG TAB 1 tab by mouth twice daily BACTRIM DS 800-160 MG TAB 830411 TRIMETHOPRIM-SULFAMETHOXAZOLE Inactive CEFTIN 500 MG TAB 1 twice a day CEFTIN 500 MG TAB 417440 CEFUROXIME AXETIL Inactive CEFTIN 500 MG TAB 1 twice a day CEFTIN 500 MG TAB 613466 CEFUROXIME AXETIL Inactive CHERATUSSIN AC 100-10 MG/5ML SYRP 1 tsp by mouth every 4 hours as needed for cough CHERATUSSIN AC 100-10 MG/5ML SYRP 983011 GUAIFENESIN-CODEINE Inactive CYCLOBENZAPRINE HCL 10 MG TABS 1/2 - 1 tab by mouth three times daily if needed for spasms/pain CYCLOBENZAPRINE HCL 10 MG TABS 386913 CYCLOBENZAPRINE HCL Inactive DOXYCYCLINE HYCLATE 100 MG CAP 1 cap by mouth twice daily DOXYCYCLINE HYCLATE 100 MG CAP 5227907 DOXYCYCLINE HYCLATE Inactive DOXYCYCLINE HYCLATE 100 MG TAB 1 tab twice a day for 14 days 2013 DOXYCYCLINE HYCLATE 100 MG TAB 4418129 DOXYCYCLINE HYCLATE Inactive FUROSEMIDE 20 MG TABS 1 pill by mouth daily, for edema FUROSEMIDE 20 MG TABS 097534 FUROSEMIDE Inactive LEVOTHYROXINE SODIUM 75 MCG TABS Take 1 tab daily LEVOTHYROXINE SODIUM 75 MCG TABS 295120 LEVOTHYROXINE SODIUM Inactive METHOCARBAMOL 750 MG TABS 1 PO QID PRN METHOCARBAMOL 750 MG TABS 003163 METHOCARBAMOL Inactive NIACIN 500 MG TABS 1 pill by mouth nightly x 1 week, then 2 pills x 1 week, then 3 pills x 1 week, then 4 pills nightly - take after evening meal, with applesauce or an apple NIACIN 500 MG TABS 260584 NIACIN Inactive NITROSTAT 0.4 MG SUBL as directed NITROSTAT 0.4 MG SUBL 165407 NITROGLYCERIN Inactive POLYTRIM 50880-2.1 UNIT/ML-% SOLN 1 gtt to affected eye q3h x 7 days POLYTRIM 47611-5.1 UNIT/ML-% SOLN 239116 POLYMYXIN B- TRIMETHOPRIM Inactive PREDNISONE 20 MG TAB 2 tabs daily for 3 days, 1 tab daily for 3 days, 1/2 tab daily for 2 days PREDNISONE 20 MG TAB 385722 PREDNISONE Inactive ROBAXIN-750 750 MG TABS 2 four times a day for 3 days as needed for muscle spasm, then 1 four times a day as needed ROBAXIN-750 750 MG TABS 549841 METHOCARBAMOL Inactive VALIUM 5 MG TAB 1 po 30 minutes prior to your MRI VALIUM 5 MG TAB 370678 DIAZEPAM Inactive VERAPAMIL HCL CR 180 MG CR-TABS TAKE 1 TAB DAILY VERAPAMIL HCL CR 180 MG CR-TABS VERAPAMIL HCL Inactive PREVACID 30 MG CPDR Take 1 tablet by mouth daily-PRN PREVACID 30 MG CPDR 715549 LANSOPRAZOLE Inactive DICLOFENAC SODIUM 75 MG TBEC 1 tablet by q 12 hours PRN headaches DICLOFENAC SODIUM 75 MG TBEC 167991 DICLOFENAC SODIUM Inactive OXYCODONE HCL 5 MG ORAL CAPS 1 TAB PO Q HS OXYCODONE HCL 5 MG ORAL CAPS 8795782 OXYCODONE HCL Inactive AZITHROMYCIN 250 MG TABS 2 po qd x 1 day, then 1 po qd x 4 days AZITHROMYCIN 250 MG TABS 8621421 AZITHROMYCIN Inactive AZITHROMYCIN 250 MG TABS 2 po qd x 1 day, then 1 po qd x 4 days AZITHROMYCIN 250 MG TABS 9241358 AZITHROMYCIN Inactive AZITHROMYCIN 250 MG TABS 2 pills on day 1, then 1 pill daily x 4 days AZITHROMYCIN 250 MG TABS 7800374 AZITHROMYCIN Inactive ADULT ASPIRIN EC LOW STRENGTH 81 MG TBEC Take 1 tablet by mouth daily 2014 ADULT ASPIRIN EC LOW STRENGTH 81 MG TBEC 108173 ASPIRIN Inactive NIASPAN 500 MG ORAL CR-TABS 1 pill nightly x 1 week, then 2 pills nightly x 1 week, then 3 pills nightly x 1 week, then 4 pills nightly NIASPAN 500 MG ORAL CR-TABS NIACIN (ANTIHYPERLIPIDEMIC) Inactive CEFDINIR 300 MG CAPS by mouth twice a day CEFDINIR 300 MG CAPS 414108 CEFDINIR Inactive CEFDINIR 300 MG CAPS 1 po BID x 10 days CEFDINIR 300 MG CAPS 865828 CEFDINIR Inactive ZOFRAN ODT 4 MG TBDP 1 pill dissolved by mouth every 4 hours if needed for nausea ZOFRAN ODT 4 MG TBDP 618860 ONDANSETRON Inactive XOPENEX 1.25 MG/3ML NEBU 1 neb every 4 hours if needed for cough/congestion XOPENEX 1.25 MG/3ML NEBU 724305 LEVALBUTEROL HCL Inactive FLONASE 50 MCG/ACT SUSP 1 spray each nostril am and hs FLONASE 50 MCG/ACT SUSP 4169217 FLUTICASONE PROPIONATE Inactive HYDROCODONE-ACETAMINOPHEN 5-325 MG TABS 1 q 4-6 hrs prn HYDROCODONE-ACETAMINOPHEN 5-325 MG TABS 790038 HYDROCODONE-ACETAMINOPHEN Inactive FLUTICASONE PROPIONATE 50 MCG/ACT SUSP 1 to 2 sprays each nostril daily 04/21 FLUTICASONE PROPIONATE 50 MCG/ACT SUSP 4791235 FLUTICASONE PROPIONATE Inactive NEXIUM 40 MG PACK [...] Fluvirin, Fluarix, Agriflu(>=18 yo)) Fluzone (>3 yrs.) [YOT499] Influenza, seasonal, injectable influenza immunization (Flu Vax) has been administered Influenza - Unspecified Formulation [CVX88] influenza virus vaccine, unspecified formulation Seasonal influenza vaccine, injectable, containing preservative, for > 3 years old (Afluria, FluLaval, Fluzone, Fluvirin, Fluarix, Agriflu(>=18 yo)) Fluzone (>3 yrs.) [QLH978] Influenza, seasonal, injectable pneumococcal immunization administered Pneumovax 23 [CVX33] pneumococcal polysaccharide vaccine, 23 valent dT (Diphtheria and Tetanus) booster given given Td(adult) unspecified formulation Boostrix (Tetanus toxoid, reduced diphtheria toxoid and acellular pertussis vaccine, adsorbed), booster Boostrix [XNI970] tetanus toxoid, reduced diphtheria toxoid, and acellular [...] Panel - Chemistry sodium, serum 142 mmol/L 097-515 0267/06/30 potassium, serum 4.4 mmol/L 3.5-5.2 chloride, serum 108 mmol/L 98-107 carbon dioxide, venous blood 25.1 mmol/L 21.0-32.0 blood glucose 82 mg/dL 65-110 calcium, serum 9.1 mg/dL 8.5-10.1 urea nitrogen, blood 18 mg/dL 7-18 creatinine, serum 1.31 mg/dL 0.55-1.30 Lab Report: Lipid Panel, HEPATIC PANEL - Chemistry cholesterol, serum 166 mg/dL 267-273 0961/12/06 triglyceride, serum, fasting 86 mg/dL 30-200 HDL [...] dipstick Negative Negative sodium, serum 142 mmol/L 049-044 4913/07/18 carbon dioxide, venous blood 27.8 mmol/L 21.0-32.0 [...] negative Encounters Code Encounter Date Provider Facility CPT-33519 Level 3 Est. Patient 15:20:50 CDT Jared Og MD [facility] CPT-20900 Level 3 Est. Patient 17:43:55 PREVOCATIONAL/REHABILITATION COUNSELOR Gab Padron MD [facility] CPT-99212 Level 3 Est. Patient 17:07:49 PREVOCATIONAL/REHABILITATION COUNSELOR Jared Og MD [facility] CPT-58494 Level 4 Est. Patient 19:55:18 PREVOCATIONAL/REHABILITATION COUNSELOR Jared Og MD [facility] CPT-20042 Level 3 Est. Patient 20:13:34 PREVOCATIONAL/REHABILITATION COUNSELOR Jared Og MD [facility] CPT-28783 Level 4 Est. Patient 16:31:27 CDT Gab Padron MD [facility] CPT-63346 Level 2 Est. Patient 12:23:38 CDT Jared Og MD [facility] CPT-72914 Level 3 Est. Patient 11:01:51 CDT Gab Padron MD [facility]-33617 Level 3 Est. Patient 15:27:02 CDT Jared Og MD [facility] CPT-97766 Level 4 Est. Patient 09:25:27 CDT Gab Padron MD [facility] CPT-19498 Level 3 Est. Patient 10:29:41 CDT Rodrigo Sarah [facility] [place][note 2]-43481 Level 4 Est. Patient 17:51:05 CDT Gab Padron MD [facility]-64096 Level 3 Est. Patient 14:18:08 CDT Gab Padron MD [facility]-23207 Level 4 Est. Patient 10:18:54 CDT Gab Padron MD [facility]-92623 Level 3 Est. Patient 11:30:07 CDT Rodrigo Sarah [facility] [place][note 2]-49802 Level 4 Est. Patient 21:02:30 PREVOCATIONAL/REHABILITATION COUNSELOR Gab Padron MD [facility]-98486 Level 3 Est. Patient 11:02:19 PREVOCATIONAL/REHABILITATION COUNSELOR Gab Padron MD [facility] CPT-95389 Level 4 Est. Patient 22:24:31 PREVOCATIONAL/REHABILITATION COUNSELOR Gab Padron MD [facility] CPT-05593 Level 3 Est. Patient 18:33:46 PREVOCATIONAL/REHABILITATION COUNSELOR Gab Padron MD [facility] CPT-97917 Level 3 Est. Patient 16:19:11 CDT Yolande Lindsay MD [facility]-61181 Level 3 Est. Patient 18:59:14 CDT Yolande Lindsay MD [facility]-40401 Level 4 Est. Patient 21:29:26 CDT Yolande Lindsay MD [facility]-31445 Level 3 Est. Patient 07:37:45 CDT Yolande Lindsay MD [facility] CPT-60290 Level 3 Est. Patient 17:03:46 CDT Yolande Lindsay MD [facility]-42800 Level 4 Est. Patient 20:02:13 PREVOCATIONAL/REHABILITATION COUNSELOR Yolande Lindsay MD [facility] CPT-16869 Level 3 Est. Patient 16:02:07 PREVOCATIONAL/REHABILITATION COUNSELOR Alexis Ordaz MD [facility] CPT-15599 Level 3 Est. Patient 12:41:24 PREVOCATIONAL/REHABILITATION COUNSELOR Yolande Lindsay MD [facility]-16706 Level 3 Est. Patient 15:41:20 PREVOCATIONAL/REHABILITATION COUNSELOR Yolande Lindsay MD [facility]-39347 Level 3 Est. Patient 13:20:02 PREVOCATIONAL/REHABILITATION COUNSELOR Yolande Lindsay MD [facility]-62167 Level 3 Est. Patient 15:00:38 CDT Jared Og MD [facility] CPT-86641 Level 3 Est. Patient 10:22:32 CDT Yolande Lindsay MD [facility] CPT-30653 Level 3 Est. Patient 17:12:58 CDT Yolande Lindsay MD [facility] CPT-09546 Level 4 Est. Patient 13:30:58 CDT Yolande Lindsay MD [facility] CPT-85731 Level 4 New Patient 09:02:42 CDT Jared Og MD [facility] CPT-14215 Level 3 Est. Patient 08:19:07 CDT Yolande Lindsay MD [facility]-92944 Level 3 Est. Patient 12:00:13 PREVOCATIONAL/REHABILITATION COUNSELOR Gab Padron MD [facility] CPT-35611 Level 3 Est. Patient 16:15:23 PREVOCATIONAL/REHABILITATION COUNSELOR Yolande Lindsay MD [facility]-29576 Level 2 Est. Patient 19:47:15 CDT Yolande Lindsay MD [facility]-59810 Level 3 Est. Patient 21:38:31 CDT Yolande Lindsay MD [facility]08895 Level 3 Est. Patient 10:25:12 CDT Adiel PERAZA [facility]-61665 Level 4 Est. Patient 10:51:58 CDT Yolande Lindsay MD [facility]-08432 Level 3 Est. Patient 14:04:55 PREVOCATIONAL/REHABILITATION COUNSELOR Rodrigo Sarah [facility]-28743 Level 3 Est. Patient 10:46:35 PREVOCATIONAL/REHABILITATION COUNSELOR Rodrigo Sarah [facility]-18398 Level 3 Est. Patient 14:24:37 PREVOCATIONAL/REHABILITATION COUNSELOR Yolande Lindsay MD [facility]-74428 Level 3 Est. Patient 17:41:58 PREVOCATIONAL/REHABILITATION COUNSELOR Yolande Lindsay MD [facility]-12127 Level 2 Est. Patient 22:01:41 PREVOCATIONAL/REHABILITATION COUNSELOR Rodrigo Sarah [facility]-82310 Level 2 Est. Patient 22:01:11 PREVOCATIONAL/REHABILITATION COUNSELOR Rodrigo Sarah [facility]-77050 Level 3 Est. Patient 10:12:29 PREVOCATIONAL/REHABILITATION COUNSELOR Rodrigo Sarah [facility]-95380 Level 3 Est. Patient 11:05:44 CDT Alexis Ordaz MD [facility]-56509 Level 3 Est. Patient 14:57:20 CDT Yolande Lindsay MD [facility]91660 Level 3 Est. Patient 14:40:57 CDT Yolande Lindsay MD [facility]15167 Level 3 Est. Patient 20:55:40 CDT Yolande Lindsay MD PhD [facility] CPT-28199 Level 3 Est. Patient 12:42:38 PREVOCATIONAL/REHABILITATION COUNSELOR Yolande Lindsay MD PhD [facility] CPT-73491 Level 3 Est. Patient 11:54:49 PREVOCATIONAL/REHABILITATION COUNSELOR Des Hines MD [facility] CPT-84604 Level 3 Est. Patient 17:06:38 CDT Dewayne PERAZA [facility] Procedures Code Procedure Name Date Entry Date Standard Description CPT-46860 Hip, complete, 2-3 views - XRAY USE ONLY 17:19:04 PREVOCATIONAL/REHABILITATION COUNSELOR CPT-66653 Venipuncture Draw Fee 08:37:59 PREVOCATIONAL/REHABILITATION COUNSELOR CPT-00577 Liver Profile - LAB USE ONLY 08:37:59 PREVOCATIONAL/REHABILITATION COUNSELOR CPT-69593 Lipid - LAB USE ONLY 08:37:58 PREVOCATIONAL/REHABILITATION COUNSELOR CPT-43099 First Vx - Ix admin via ID IM or jet injects without counseling by physician 11:52:31 CDT CPT-03297 Fluzone Preservative Free Intramuscular Suspension 11:52 :31 CDT CPT-13860 Foot, left, comp min 3V - XRAY USE ONLY 09:24:54 CDT CPT-98867 Abd single AP View - XRAY USE ONLY 11:16:17 CDT CPT-44690 T spine AP/ Lat - XRAY USE ONLY 09:34:21 CDT CPT-83389 Chest 2V Frontal and Lat - XRAY USE ONLY 10:48:51 CDT CPT-29268 LS spine comp w obliq 13:28:00 PREVOCATIONAL/REHABILITATION COUNSELOR CPT-J1040 Depo Medrol 80 mg (Methyl Prednisolone Acetate) 10:51: 28 PREVOCATIONAL/REHABILITATION COUNSELOR CPT-J1100 Decadron 8mg (Dexamethasone) 10:51:28 PREVOCATIONAL/REHABILITATION COUNSELOR CPT-26362 Abx/Therapy Injection 10:51:28 PREVOCATIONAL/REHABILITATION COUNSELOR CPT-J1100 Decadron 8mg (Dexamethasone) 21:02:30 PREVOCATIONAL/REHABILITATION COUNSELOR CPT-J1040 Depo Medrol 80 mg (Methyl Prednisolone Acetate) 21:02: 30 PREVOCATIONAL/REHABILITATION COUNSELOR [id number] Event Monitor - MC Transmission 09:12:32 CDT 08/06 [id number] Event Monitor - MC review and interp 09:12:32 CDT [id number] Event Monitor - MC recording 09:12:32 CDT CPT-58021 EKG Trac and Interp 16:50:22 CDT CPT-J1030 Depo Medrol 40 mg (Methyl Prednisolone Acetate) 17:05: 54 CDT CPT-J1100 Decadron 4mg (Dexamethasone) 17:05:54 CDT CPT-29938 Abx/Therapy Injection 17:05:54 CDT CPT-J1100 Decadron 4mg (Dexamethasone) 16:55:28 CDT CPT-J1030 Depo Medrol 40 mg (Methyl Prednisolone Acetate) 16:55: 28 CDT CPT-57767 Ankle Complete - Min 3V 15:58:50 CDT CPT-30512 Knee 3V 15:58:50 CDT CPT-49301 Hip comp min 2V 15:58:50 CDT CPT-J2270 Morphine Sulfate 10 mg 14:25:44 PREVOCATIONAL/REHABILITATION COUNSELOR CPT-J2550 Phenergan 12.5 mg (Promethazine) 14:25:44 PREVOCATIONAL/REHABILITATION COUNSELOR CPT-34868 Abx/Therapy Injection 14:25:44 PREVOCATIONAL/REHABILITATION COUNSELOR CPT-J2550 Phenergan 12.5 mg (Promethazine) 14:08:03 PREVOCATIONAL/REHABILITATION COUNSELOR CPT-J2270 Morphine Sulfate 10 mg 14:08:03 PREVOCATIONAL/REHABILITATION COUNSELOR CPT-45363 Bladder Scan 15:00:38 CDT CPT-TCMM Transitional Care Mgmt-Moderate 09:52:22 CDT CPT-J1030 Depo Medrol 40 mg (Methyl Prednisolone Acetate) 10:55: 18 CDT CPT-J1100 Decadron 4mg (Dexamethasone) 10:55:18 CDT CPT-65138 Abx/Therapy Injection 10:55:18 CDT CPT-J1030 Depo Medrol 40 mg (Methyl Prednisolone Acetate) 10:22: 32 CDT CPT-J1100 Decadron 4mg (Dexamethasone) 10:22:32 CDT CPT-94553 Postop F/U Visit 14:37:13 CDT CPT-77290 Ankle Complete - Min 3V 17:11:58 CDT CPT-34321 Foot comp min 3V 17:11:58 CDT CPT-85399 Bladder Scan 09:56:58 CDT CPT-69511 Postop F/U Visit 09:56:58 CDT CPT-19763 Cystoscopy 09:02:42 CDT CPT-79835 Bladder Scan 09:02:42 CDT CPT-63636 Abd single AP View 16:00:35 CDT CPT-16033 Administration single or combination vaccine inc oral 10 :15:43 CDT CPT-69989 Influenza split virus > age 3 10:15:43 CDT CPT-19907 Nail Avulsion 09:24:57 CDT CPT-OV Office Visit 11:15:41 CDT CPT-13161 Abx/Therapy Injection 10:51:30 CDT CPT-J3301 Kenalog 40 mg (Triamcinolone Acetonide) 10:25:12 CDT CPT-J1100 Decadron 4mg (Dexamethasone) 10:25:12 CDT CPT-90165 Anoscopy diagnostic 10:36:12 CDT CPT-OV Office Visit 15:34:31 CDT CPT-21982 Abx/Therapy Injection 08:21:15 PREVOCATIONAL/REHABILITATION COUNSELOR CPT-J1885 Toradol 60 mg (Ketorolac) 10:46:35 PREVOCATIONAL/REHABILITATION COUNSELOR CPT-OV Office Visit 19:51:16 PREVOCATIONAL/REHABILITATION COUNSELOR CPT-45878 Spec Collection and Handling Fee 14:34:18 PREVOCATIONAL/REHABILITATION COUNSELOR CPT-PV Prev. Care Visit 14:19:18 PREVOCATIONAL/REHABILITATION COUNSELOR CPT-55266 Postop F/U Visit 14:47:51 PREVOCATIONAL/REHABILITATION COUNSELOR CPT-89532 Postop F/U Visit 15:15:14 PREVOCATIONAL/REHABILITATION COUNSELOR CPT-76219 Postop F/U Visit 14:41:43 CDT CPT-94308 Postop F/U Visit 15:47:46 CDT CPT-OV Office Visit 15:27:23 CDT CPT-OV Office Visit 17:20:34 CDT CPT-76115 Abx/Therapy Injection 15:05:57 CDT CPT-J1100 Decadron 8mg (Dexamethasone) 14:44:57 CDT CPT-J1040 Depo Medrol 80 mg (Methyl Prednisolone Acetate) 14:44: 57 CDT CPT-JTINJ Joint Injection 10:17:37 CDT CPT-29481 Administration 2+ single or combination vaccines inc oral 13:01:46 PREVOCATIONAL/REHABILITATION COUNSELOR CPT-85898 Administration single or combination vaccine inc oral 13 :01:46 PREVOCATIONAL/REHABILITATION COUNSELOR CPT-63878 Pneumovax 13:01:46 PREVOCATIONAL/REHABILITATION COUNSELOR CPT-22692 Influenza split virus > age 3 13:01:46 PREVOCATIONAL/REHABILITATION COUNSELOR CPT-73995 Administration single or combination vaccine inc oral 08 :56:49 CDT CPT-82239 Tdap 08:56:49 CDT
--- OUTSIDE RECORDS SUMMARY | 2017-03-22 02:22 | XMS REPORT | Clinical Summary ---
Author Author Admin, MARGRET Organization [employer] Address Unknown Phone Unavailable Allergies, Adverse Reactions, Alerts Allergy Name Reaction Description Start Date Severity Status Provider VALENTIN Critical Active Rodrigo Montemayorl EDUCATIONAL AUDIOLOGIST CHLORHEXIDINE GLUCONATE tongue and gums swollen Critical Active Hoa Kabaford RMA NORFLEX Rash Critical Active Rowenaina Frazell EDUCATIONAL AUDIOLOGIST TRAZODONE HCL sees things Critical Active Dewayne [...] unspecified site PLANTAR FASCIITIS 728.71 Resolved Yolande Lindasy MD PhD Plantar fascial fibromatosis UTI 599.0 [...] and anus INGROWN TOENAIL 703.0 Resolved Yolande Lnidsay MD PhD Ingrowing nail INGROWN TOENAIL 703.0 [...] Active Hoa Otto [facility] Old myocardial infarction Pelvic pain 789.09 Resolved Gab Padron MD Abdominal pain, other specified site; multiple sites Edema 782.3 Active Yolande Lindsay MD PhD Edema Rash 782.1 Resolved aGb Padron MD Rash and other nonspecific skin [...] PhD Sinusitis, maxillary, acute ICD-461.0 Inactive Yolande Lnidsay MD PhD Sinusitis ICD-461.9 Inactive Yolande Lindsay [...] MD Flank pain, left ICD-789.09 Inactive Gab Padorn MD Abdominal pain, generalized ICD-789.07 Inactive Gab [...] daily for 2 days end 02/05/17 PREDNISONE 54624713177 No Longer Active Gab Padron MD Active ZANTAC 150 MG ORAL TABLET 1 by mouth twice daily RANITIDINE HCL 92872232761 Active Gab Padron MD Active TRIAMCINOLONE ACETONIDE 0.1 % EXTERNAL CREAM Apply to affected area 3 times daily for up to 2 weeks TRIAMCINOLONE ACETONIDE 79007176039 Active Tishalena Lambert EDUCATIONAL AUDIOLOGIST Active LISINOPRIL 40 MG ORAL TABLET 1 tablet by mouth daily LISINOPRIL 99562363244 Active Tisha Fausto EDUCATIONAL AUDIOLOGIST Active IBUPROFEN 600 MG ORAL TABLET 1 tablet by mouth every 6 hours for 7 days, then 1 tablet every 6 hours as needed. Take with food IBUPROFEN 61766296716 No Longer Active Tisha Lambert EDUCATIONAL AUDIOLOGIST Active PREDNISONE 20 MG ORAL TABLET 1 tab twice daily for 3 day, then one daily for three days PREDNISONE 04249785335 No Longer Active Tisha Fausto EDUCATIONAL AUDIOLOGIST Active TRIAMCINOLONE ACETONIDE 0.1 % EXTERNAL CREAM apply bid sparingly to rash 2014 TRIAMCINOLONE ACETONIDE 97734276710 No Longer Active Gab Padron MD Active TRAMADOL HCL 50 MG ORAL TABLET 1 tab po every 6 hrs prn pain 2016 TRAMADOL HCL 01656404815 No Longer Active Gab Padron MD Active BACTRIM DS 800-160 MG ORAL TABLET 1 tab by mouth twice daily 2016 TRIMETHOPRIM-SULFAMETHOXAZOLE 54690750108 No Longer Active Tisha Lambert APRN Active ADVAIR DISKUS 250-50 MCG/DOSE INHALATION AEROSOL POWDER BREATH ACTIVATED 1 puff BID FLUTICASONE-SALMETEROL 99694037969 No Longer Active Todd Callaway MD Active ONDANSETRON 4 MG ORAL TABLET DISINTEGRATING 1 q4h PRN nausea ONDANSETRON 25854132675 No Longer Active LONNIE Iglesias Active FISH OIL 1000 MG ORAL CAPSULE 3 pills daily OMEGA-3 FATTY ACIDS 36004189639 No Longer Active LONNIE Iglesias Active CETIRIZINE HCL 10 MG ORAL TABLET 1 po qd PRN Allergies CETIRIZINE HCL 35688199838 Active Gab Padron MD Active CLARITIN 10 MG ORAL TABLET 1 tablet by mouth daily as needed for allergies LORATADINE 13018896263 No Longer Active Gab Padron MD Active PREDNISONE 20 MG ORAL TABLET take 3 tabs daily for 3 days, 2 tabs daily for 3 days, 1 tab daily for 3 days, 1/2 tab daily for 3 days PREDNISONE 04751655503 No Longer Active Tisha Lambert APRN Active PREDNISONE 20 MG ORAL TABLET 2 tabs daily for 3 days, 1 tab daily for 3 days, 1/2 tab daily for 2 days PREDNISONE 04643709827 No Longer Active Gab Padron MD Active ZOFRAN ODT 4 MG ORAL TABLET DISINTEGRATING 1 po q6hr PRN Nausea ONDANSETRON 23982898617 Active Gab Padron MD Active BACTRIM DS 800-160 MG ORAL TABLET 1 tab by mouth twice daily 2015 TRIMETHOPRIM-SULFAMETHOXAZOLE 91780554642 No Longer Active Gab Padron MD Active LEVOTHYROXINE SODIUM 75 MCG ORAL TABLET Take 1 tab daily LEVOTHYROXINE SODIUM 09329857500 No Longer Active Mariana FLEMING Active SYNTHROID 88 MCG ORAL TABLET Take one by mouth daily LEVOTHYROXINE SODIUM 22577859156 Active Tisha Lambert APRN Active CHERATUSSIN AC 100-10 MG/5ML ORAL SYRUP 1 tsp by mouth every 4 hours as needed for cough GUAIFENESIN-CODEINE 12423339382 No Longer Active Gab Padron MD Active POLYTRIM 80846-4.1 UNIT/ML-% OPHTHALMIC SOLUTION 1 gtt to affected eye q3h x 7 days POLYMYXIN B-TRIMETHOPRIM 89003951470 No Longer Active aGb Padron MD Active FLUTICASONE PROPIONATE 50 MCG/ACT NASAL SUSPENSION 1 to 2 sprays each nostril daily FLUTICASONE PROPIONATE 10272434717 No Longer Active Gab aPdron MD Active TRILEPTAL 600 MG ORAL TABLET Take one 1 tablet in Am and 1 tablet at night OXCARBAZEPINE 67481348061 Active Gab Padron MD Active CEFDINIR 300 MG ORAL CAPSULE 1 po BID x 10 days CEFDINIR 62440854622 No Longer Active Rodrigo Sarah APRN Active CEFTIN 500 MG ORAL TABLET 1 twice a day CEFUROXIME AXETIL 04032829675 No Longer Active Gab Padron MD Active AZITHROMYCIN 250 MG ORAL TABLET 2 po qd x 1 day, then 1 po qd x 4 days 03/11 AZITHROMYCIN 01723126524 No Longer Active Rodrigo Sarah APRN Active OXYCODONE HCL 5 MG ORAL CAPSULE 1 TAB PO Q HS OXYCODONE HCL 08486000933 No Longer Active Rodrigo Sarah APRN Active NIASPAN 500 MG ORAL TABLET EXTENDED RELEASE 1 pill nightly x 1 week, then 2 pills nightly x 1 week, then 3 pills nightly x 1 week, then 4 pills nightly NIACIN (ANTIHYPERLIPIDEMIC) 55833750150 No Longer Active Rodrigo Sarah APRN Active NIACIN 500 MG ORAL TABLET 1 pill by mouth nightly x 1 week, then 2 pills x 1 week, then 3 pills x 1 week, then 4 pills nightly - take after evening meal, with applesauce or an apple NIACIN 38865965178 No Longer Active Yolande Lindsay MD PhD Active FUROSEMIDE 20 MG ORAL TABLET 1 tablet by mouth daily FUROSEMIDE 26495925299 Active Gab Padron MD Active FUROSEMIDE 20 MG ORAL TABLET 1 pill by mouth daily, for edema FUROSEMIDE 81520208240 No Longer Active Yolande Lindsay MD PhD Active ATORVASTATIN CALCIUM 10 MG ORAL TABLET 1 pill by mouth daily, for cholesterol ATORVASTATIN CALCIUM 77595834557 Active Gab Padron MD Active CALCIUM 600+D PLUS MINERALS 600-400 MG-UNIT ORAL TABLET CHEWABLE 1 tab by mouth daily CALCIUM CARBONATE-VIT D-MIN 21188438500 No Longer Active Yolande Lindsay MD PhD Active CYCLOBENZAPRINE HCL 10 MG ORAL TABLET 1 tablet by mouth three times daily as needed for muscle spasm/pain CYCLOBENZAPRINE HCL 38003350180 Active Yolande Lindsay MD PhD Active ADULT ASPIRIN EC LOW STRENGTH 81 MG ORAL TABLET DELAYED RELEASE Take 1 tablet by mouth daily ASPIRIN 91152035618 No Longer Active Yolande Lindsay MD PhD Active ZOFRAN ODT 4 MG ORAL TABLET DISINTEGRATING 1 pill dissolved by mouth every 4 hours if needed for nausea ONDANSETRON 53981533403 No Longer Active Yolande Lindsay MD PhD Active CEFTIN 500 MG ORAL TABLET 1 twice a day CEFUROXIME AXETIL 63711029729 No Longer Active Yolande Linsday MD PhD Active ALBUTEROL SULFATE (2.5 MG/3ML) 0.083% INHALATION NEBULIZATION SOLUTION one vial per nebulizer every 4-6 hours as needed ALBUTEROL SULFATE 28391135256 No Longer Active Alexis Ordaz MD Active DOXYCYCLINE HYCLATE 100 MG ORAL CAPSULE 1 cap by mouth twice daily DOXYCYCLINE HYCLATE 29974766221 No Longer Active Yolande Lindsay MD PhD Active CYCLOBENZAPRINE HCL 10 MG ORAL TABLET 1/2 - 1 tab by mouth three times daily if needed for spasms/pain CYCLOBENZAPRINE HCL 57926177629 No Longer Active Yolande Lindsay MD PhD Active AZITHROMYCIN 250 MG ORAL TABLET 2 pills on day 1, then 1 pill daily x 4 days AZITHROMYCIN 22729749160 No Longer Active Yolande Lindsay MD PhD Active XOPENEX 1.25 MG/3ML INHALATION NEBULIZATION SOLUTION 1 neb every 4 hours if needed for cough/congestion LEVALBUTEROL HCL 97880509990 No Longer Active Yolande Lindsay MD PhD Active DOXYCYCLINE HYCLATE 100 MG ORAL TABLET 1 tab twice a day for 14 days DOXYCYCLINE HYCLATE 63787367473 No Longer Active Yolande Lindsay MD PhD Active PREVACID 30 MG ORAL CAPSULE DELAYED RELEASE Take 1 tablet by mouth daily-PRN LANSOPRAZOLE 20329538674 No Longer Active Yolande Lindsay MD PhD Active PA VITAMIN D-3 2000 UNIT ORAL CAPSULE 1 CAP PO DAILY CHOLECALCIFEROL 70877753480 No Longer Active Yolande Lindsay MD PhD Active CEFDINIR 300 MG ORAL CAPSULE by mouth twice a day CEFDINIR 11319532566 No Longer Active Gab Padron MD Active TOPAMAX 50 MG ORAL TABLET 1 PO twice daily TOPIRAMATE 49544220840 Active Yolande Lindsay MD PhD Active AZITHROMYCIN 250 MG ORAL TABLET 2 po qd x 1 day, then 1 po qd x 4 days 03/02 AZITHROMYCIN 03018195097 No Longer Active Yolande Lindsay MD PhD Active DICLOFENAC SODIUM 75 MG ORAL TABLET DELAYED RELEASE 1 tablet by q 12 hours PRN headaches DICLOFENAC SODIUM 76708600923 No Longer Active Yolande Lindsay MD PhD Active FLONASE 50 MCG/ACT NASAL SUSPENSION 1 spray each nostril am and hs FLUTICASONE PROPIONATE 85568174500 No Longer Active Todd Callaway MD Active ANUSOL-HC 25 MG RECTAL SUPPOSITORY 1 rectally twice a day as needed for hemorrhoids HYDROCORTISONE JAYDEN (RECTAL) 76995517367 No Longer Active Yolande Lindsay MD PhD Active ANUSOL-HC 25 MG RECTAL SUPPOSITORY 1 suppository rectally each evening as needed for anal fissure HYDROCORTISONE JAYDEN (RECTAL) 84750206198 No Longer Active LONNIE Iglesias Active VALIUM 5 MG ORAL TABLET 1 po 30 minutes prior to your MRI DIAZEPAM 96766508838 No Longer Active LONNIE Iglesias Active METHOCARBAMOL 750 MG ORAL TABLET 1 PO QID PRN METHOCARBAMOL 02311082589 No Longer Active Daphne Wetzel APRN Active NITROSTAT 0.4 MG SUBLINGUAL TABLET SUBLINGUAL as directed NITROGLYCERIN 20287660973 No Longer Active Rodrigo Sarah APRN Active ROBAXIN-750 750 MG ORAL TABLET 2 four times a day for 3 days as needed for muscle spasm, then 1 four times a day as needed METHOCARBAMOL 33040533217 No Longer Active Rodrigo Sarah APRN Active HYDROCODONE-ACETAMINOPHEN 5-325 MG ORAL TABLET 1 q 4-6 hrs prn HYDROCODONE-ACETAMINOPHEN 35362304516 No Longer Active Rodrigo Sarah APRN Active VERAPAMIL HCL ER 180 MG ORAL TABLET EXTENDED RELEASE TAKE 1 TAB DAILY VERAPAMIL HCL 93728456417 No Longer Active Yolande Lindsay MD PhD Active BACTRIM DS 800-160 MG ORAL TABLET 1 tab by mouth twice daily 2010 TRIMETHOPRIM-SULFAMETHOXAZOLE 34451892990 No Longer Active Yolande Lindsay MD PhD Active NEXIUM 40 MG ORAL PACKET 1 by mouth daily ESOMEPRAZOLE MAGNESIUM 83978466554 No Longer Active Des Hines MD Active EPIPEN 2-CHARLETTE 0.3 MG/0.3ML INJECTION SOLUTION AUTO-INJECTOR as need for allergic reaction EPINEPHRINE 23538847597 Active Yolande Lindsay MD PhD Active NEXIUM 40 MG ORAL CAPSULE DELAYED RELEASE 1 PO Q D DAY ESOMEPRAZOLE MAGNESIUM 41073616714 No Longer Active Sadia Perry RN Active [...] hrs prn HYDROCODONE-ACETAMINOPHEN 5-325 MG ORAL TABLET 892063 HYDROCODONE- ACETAMINOPHEN Inactive ROBAXIN-750 750 MG ORAL TABLET 2 four times a day for 3 days as needed for muscle spasm, then 1 four times a day as needed ROBAXIN -750 750 MG ORAL TABLET 106749 METHOCARBAMOL Inactive NITROSTAT 0.4 MG SUBLINGUAL TABLET SUBLINGUAL as directed NITROSTAT 0.4 MG SUBLINGUAL TABLET SUBLINGUAL 424957 NITROGLYCERIN Inactive METHOCARBAMOL 750 MG ORAL TABLET 1 PO QID PRN METHOCARBAMOL 750 MG ORAL TABLET 930972 METHOCARBAMOL Inactive VALIUM 5 MG ORAL TABLET 1 po 30 minutes prior to your MRI VALIUM 5 MG ORAL TABLET 172298 DIAZEPAM Inactive ANUSOL-HC 25 MG RECTAL SUPPOSITORY 1 suppository rectally each evening as needed for anal fissure ANUSOL-HC 25 MG RECTAL SUPPOSITORY 2173176 HYDROCORTISONE JAYDEN (RECTAL) Inactive ANUSOL-HC 25 MG RECTAL SUPPOSITORY 1 rectally twice a day as needed for hemorrhoids ANUSOL-HC 25 MG RECTAL SUPPOSITORY 0327768 HYDROCORTISONE JAYDEN (RECTAL) Inactive FLONASE 50 MCG/ACT NASAL SUSPENSION 1 spray each nostril am and hs 2012/11/ 14 FLONASE 50 MCG/ACT NASAL SUSPENSION 1439939 FLUTICASONE PROPIONATE Inactive DICLOFENAC SODIUM 75 MG ORAL TABLET DELAYED RELEASE 1 tablet by q 12 hours PRN headaches DICLOFENAC SODIUM 75 MG ORAL TABLET DELAYED RELEASE 291336 DICLOFENAC SODIUM Inactive PA VITAMIN D-3 2000 UNIT ORAL CAPSULE 1 CAP PO DAILY PA VITAMIN D-3 2000 UNIT ORAL CAPSULE CHOLECALCIFEROL Inactive PREVACID 30 MG ORAL CAPSULE DELAYED RELEASE Take 1 tablet by mouth daily-PRN PREVACID 30 MG ORAL CAPSULE DELAYED RELEASE 562913 LANSOPRAZOLE Inactive DOXYCYCLINE HYCLATE 100 MG ORAL TABLET 1 tab twice a day for 14 days DOXYCYCLINE HYCLATE 100 MG ORAL TABLET 8531699 DOXYCYCLINE HYCLATE Inactive XOPENEX 1.25 MG/3ML INHALATION NEBULIZATION SOLUTION 1 neb every 4 hours if needed for cough/congestion XOPENEX 1.25 MG/3ML INHALATION NEBULIZATION SOLUTION 860825 LEVALBUTEROL HCL Inactive CYCLOBENZAPRINE HCL 10 MG ORAL TABLET 1/2 - 1 tab by mouth three times daily if needed for spasms/pain CYCLOBENZAPRINE HCL 10 MG ORAL TABLET 764232 CYCLOBENZAPRINE HCL Inactive ALBUTEROL SULFATE (2.5 MG/3ML) 0.083% INHALATION NEBULIZATION SOLUTION one vial per nebulizer every 4-6 hours as needed ALBUTEROL SULFATE ( 2.5 MG/3ML) 0.083% INHALATION NEBULIZATION SOLUTION 233055 ALBUTEROL SULFATE Inactive CEFTIN 500 MG ORAL TABLET 1 twice a day CEFTIN 500 MG ORAL TABLET 510025 CEFUROXIME AXETIL Inactive ZOFRAN ODT 4 MG ORAL TABLET DISINTEGRATING 1 pill dissolved by mouth every 4 hours if needed for nausea ZOFRAN ODT 4 MG ORAL TABLET DISINTEGRATING 624271 ONDANSETRON Inactive ADULT ASPIRIN EC LOW STRENGTH 81 MG ORAL TABLET DELAYED RELEASE Take 1 tablet by mouth daily ADULT ASPIRIN EC LOW STRENGTH 81 MG ORAL TABLET DELAYED RELEASE 760420 ASPIRIN Inactive CALCIUM 600+D PLUS MINERALS 600-400 [...] an apple NIACIN 500 MG ORAL TABLET 105006 NIACIN Inactive NIASPAN 500 MG ORAL TABLET EXTENDED RELEASE 1 pill nightly x 1 week, then 2 pills nightly x 1 week, then 3 pills nightly x 1 week, then 4 pills nightly NIASPAN 500 MG ORAL TABLET EXTENDED RELEASE NIACIN ( ANTIHYPERLIPIDEMIC) Inactive OXYCODONE HCL 5 MG ORAL CAPSULE 1 TAB PO Q HS OXYCODONE HCL 5 MG ORAL CAPSULE 6226198 OXYCODONE HCL Inactive FLUTICASONE PROPIONATE 50 MCG/ACT NASAL SUSPENSION 1 to 2 sprays each nostril daily FLUTICASONE PROPIONATE 50 MCG/ACT NASAL SUSPENSION 5397278 FLUTICASONE PROPIONATE Inactive POLYTRIM 41947-3.1 UNIT/ML-% OPHTHALMIC SOLUTION 1 gtt to affected eye q3h x 7 days POLYTRIM 65486-5.1 UNIT/ML-% OPHTHALMIC SOLUTION 773363 POLYMYXIN B-TRIMETHOPRIM Inactive CHERATUSSIN AC 100-10 MG/5ML ORAL SYRUP 1 tsp by mouth every 4 hours as needed for cough CHERATUSSIN AC 100-10 MG/5ML ORAL SYRUP 531674 GUAIFENESIN-CODEINE Inactive LEVOTHYROXINE SODIUM 75 MCG ORAL TABLET Take 1 tab daily LEVOTHYROXINE SODIUM 75 MCG ORAL TABLET 154547 LEVOTHYROXINE SODIUM Inactive CLARITIN 10 MG ORAL TABLET 1 tablet by mouth daily as needed for allergies CLARITIN 10 MG ORAL TABLET 553357 LORATADINE Inactive FISH OIL 1000 MG ORAL CAPSULE 3 pills daily FISH OIL 1000 MG ORAL CAPSULE OMEGA-3 FATTY ACIDS Inactive ONDANSETRON 4 MG ORAL TABLET DISINTEGRATING 1 q4h PRN nausea ONDANSETRON 4 MG ORAL TABLET DISINTEGRATING 684047 ONDANSETRON Inactive ADVAIR DISKUS 250-50 MCG/DOSE INHALATION AEROSOL POWDER BREATH ACTIVATED 1 puff BID ADVAIR DISKUS 250-50 MCG/DOSE INHALATION AEROSOL POWDER BREATH ACTIVATED FLUTICASONE-SALMETEROL Inactive TRAMADOL HCL 50 MG ORAL TABLET 1 tab po every 6 hrs prn pain 2016 TRAMADOL HCL 50 MG ORAL TABLET 701536 TRAMADOL HCL Inactive TRIAMCINOLONE ACETONIDE 0.1 % EXTERNAL CREAM apply bid sparingly to rash 2014 TRIAMCINOLONE ACETONIDE 0.1 % EXTERNAL CREAM 8890952 TRIAMCINOLONE ACETONIDE Inactive PREDNISONE 20 MG ORAL TABLET 1 tab twice daily for 3 day, then one daily for three days PREDNISONE 20 MG ORAL TABLET 878007 PREDNISONE Inactive IBUPROFEN 600 MG ORAL TABLET 1 tablet by mouth every 6 hours for 7 days, then 1 tablet every 6 hours as needed. Take with food IBUPROFEN 600 MG ORAL TABLET 895392 IBUPROFEN Inactive BACTRIM DS 800-160 MG ORAL TABLET 1 tab by mouth twice daily 2010 BACTRIM DS 800-160 MG ORAL TABLET 527525 TRIMETHOPRIM- SULFAMETHOXAZOLE Inactive AZITHROMYCIN 250 MG ORAL TABLET 2 po qd x 1 day, then 1 po qd x 4 days 03/02 AZITHROMYCIN 250 MG ORAL TABLET 663913 AZITHROMYCIN Inactive CEFDINIR 300 MG ORAL CAPSULE by mouth twice a day CEFDINIR 300 MG ORAL CAPSULE 270833 CEFDINIR Inactive AZITHROMYCIN 250 MG ORAL TABLET 2 pills on day 1, then 1 pill daily x 4 days AZITHROMYCIN 250 MG ORAL TABLET 648318 AZITHROMYCIN Inactive DOXYCYCLINE HYCLATE 100 MG ORAL CAPSULE 1 cap by mouth twice daily DOXYCYCLINE HYCLATE 100 MG ORAL CAPSULE 2188864 DOXYCYCLINE HYCLATE Inactive FUROSEMIDE 20 MG ORAL TABLET 1 pill by mouth daily, for edema FUROSEMIDE 20 MG ORAL TABLET 152652 FUROSEMIDE Inactive AZITHROMYCIN 250 MG ORAL TABLET 2 po qd x 1 day, then 1 po qd x 4 days 03/11 AZITHROMYCIN 250 MG ORAL TABLET 556471 AZITHROMYCIN Inactive CEFTIN 500 MG ORAL TABLET 1 twice a day CEFTIN 500 MG ORAL TABLET 965919 CEFUROXIME AXETIL Inactive CEFDINIR 300 MG ORAL CAPSULE 1 po BID x 10 days CEFDINIR 300 MG ORAL CAPSULE 119852 CEFDINIR Inactive BACTRIM DS 800-160 MG ORAL TABLET 1 tab by mouth twice daily 2015 BACTRIM DS 800-160 MG ORAL TABLET 472276 TRIMETHOPRIM- SULFAMETHOXAZOLE Inactive PREDNISONE 20 MG ORAL TABLET 2 tabs daily for 3 days, 1 tab daily for 3 days, 1/2 tab daily for 2 days PREDNISONE 20 MG ORAL TABLET 670043 PREDNISONE Inactive PREDNISONE 20 MG ORAL TABLET take 3 tabs daily for 3 days, 2 tabs daily for 3 days, 1 tab daily for 3 days, 1/2 tab daily for 3 days PREDNISONE 20 MG ORAL TABLET 294418 PREDNISONE Inactive BACTRIM DS 800-160 MG ORAL TABLET 1 tab by mouth twice daily 2016 BACTRIM DS 800-160 MG ORAL TABLET 293331 TRIMETHOPRIM- SULFAMETHOXAZOLE Inactive PREDNISONE 20 MG ORAL TABLET 2 tabs daily for 3 days, 1 tab daily for 3 days, 1/2 tab daily for 2 days end 02/05/17 PREDNISONE 20 MG ORAL TABLET 231028 PREDNISONE Inactive Immunizations Vaccine Administration Date Value Standard Description Seasonal influenza vaccine, injectable, containing preservative, for > 3 years old (Afluria, FluLaval, Fluzone, Fluvirin, Fluarix, Agriflu(>=18 yo)) Fluzone (>3 yrs.) [[id number]] Influenza, seasonal, injectable influenza immunization (Flu Vax) has been administered Influenza - Unspecified Formulation [CVX88] influenza virus vaccine, unspecified formulation pneumococcal immunization administered Pneumovax 23 [CVX33] pneumococcal polysaccharide vaccine, 23 valent Seasonal influenza vaccine, injectable, containing preservative, for > 3 years old (Afluria, FluLaval, Fluzone, Fluvirin, Fluarix, Agriflu(>=18 yo)) Fluzone (>3 yrs.) [BML869] Influenza, seasonal, injectable dT (Diphtheria and Tetanus) booster given given Td(adult) unspecified formulation Boostrix (Tetanus toxoid, reduced diphtheria toxoid and acellular pertussis vaccine, adsorbed), booster Boostrix [GHX896] tetanus toxoid, reduced diphtheria toxoid, and acellular [...] rate temperature E&M 98.2 [degF] Body temperature Diagnostic Results Date Name Value Unit Range Description Lab Report: Lipid Panel, HEPATIC PANEL - Chemistry cholesterol, serum 166 mg/dL 562-080 2040/12/06 triglyceride, serum, fasting 86 mg/dL 30-200 HDL [...] 150 mg/dL cholesterol, target level 200 mg/dL Encounters Code Encounter Date Provider Facility CPT-59794 Level 3 Est. Patient 17:32:14 CDT Gab Padron MD [facility] CPT-92858 Level 3 Est. Patient 10:28:15 CDT Tisha Lambert APRN [facility] CPT-13670 Level 3 Est. Patient 14:50:29 CDT Gab Padron MD [facility] CPT-17679 Level 3 Est. Patient 14:46:[address] [facility] CPT-29296 Level 4 New Patient 16:13:15 CDT Todd Callaway MD [facility] CPT-77266 Level 4 Est. Patient 13:18:33 CDT Gab Padron MD [facility] CPT-74605 Level 3 Est. Patient 15:20:50 CDT Jared Og MD [facility] CPT-28818 Level 3 Est. Patient 17:43:55 [employer]OUND [employer]ODU[employer] DIRECTOR Gab Padron MD [facility] CPT-65644 Level 3 Est. Patient 17:07:49 GROUND PRODUCTS DIRECTOR Jared Og MD [facility] CPT-16947 Level 4 Est. Patient 19:55:18 [employer]OUND PRODUCTS DIRECTOR Jared Og MD [facility] CPT-91704 Level 3 Est. Patient 20:13:34 [employer]OUND PRODUCTS DIRECTOR Jared Og MD [facility] CPT-74377 Level 4 Est. Patient 16:31:27 CDT Gab Padron MD [facility] CPT-76178 Level 2 Est. Patient 12:23:38 CDT Jared Og MD [facility] CPT-64801 Level 3 Est. Patient 11:01:51 CDT Gab Padron MD [facility] CPT-79333 Level 3 Est. Patient 15:27:02 CDT Jared Og MD [facility] CPT-22925 Level 4 Est. Patient 09:25:27 CDT Gab Padron MD [facility] CPT-71246 Level 3 Est. Patient 10:29:[address] [facility] CPT-12828 Level 4 Est. Patient 17:51:05 CDT Gab Padron MD [facility] CPT-95234 Level 3 Est. Patient 14:18:08 CDT Gab Padron MD [facility]-69046 Level 4 Est. Patient 10:18:54 CDT Gab Padron MD [facility]-08434 Level 3 Est. Patient 11:30:07 CDT Rodrigo Sarah APRN [facility]-44543 Level 4 Est. Patient 21:02:30 [employer]OUND PRODUCTS DIRECTOR Gab Padron MD [facility]-97313 Level 3 Est. Patient 11:02:19 GROUND PRODUCTS DIRECTOR Gab Padron MD [facility]-22006 Level 4 Est. Patient 22:24:31 GROUND PRODUCTS DIRECTOR Gab Padron MD [facility]-19163 Level 3 Est. Patient 18:33:46 [employer]OUND [employer]ODUCTS DIRECTOR Gab Padron MD [facility]-69887 Level 3 Est. Patient 16:19:11 CDT Yolande Lindsay MD PhD [facility] CPT-46275 Level 3 Est. Patient 18:59:14 CDT Yolande Lindsay MD [facility]-01129 Level 4 Est. Patient 21:29:26 CDT Yolande Lindsay MD [facility]-93682 Level 3 Est. Patient 07:37:45 CDT Yolande Lindsay MD [facility]-57308 Level 3 Est. Patient 17:03:46 CDT Yolande Lindsay MD [facility]-18379 Level 4 Est. Patient 20:02:13 [employer]OUND PRODUCTS DIRECTOR Yolande Lindsay MD [facility]-70618 Level 3 Est. Patient 16:02:07 GROUND PRODUCTS DIRECTOR Alexis Ordaz MD [facility]-91657 Level 3 Est. Patient 12:41:24 GROUND PRODUCTS DIRECTOR Yolande Lindsay MD [facility]-69979 Level 3 Est. Patient 15:41:20 GROUND PRODUCTS DIRECTOR Yolande Lindsay MD [facility] CPT-22863 Level 3 Est. Patient 13:20:02 GROUND PRODUCTS DIRECTOR Yolande Lindsay MD [facility]-80582 Level 3 Est. Patient 15:00:38 CDT Jared Og MD [facility] CPT-49199 Level 3 Est. Patient 10:22:32 CDT Yolande Lindsay MD [facility] CPT-87479 Level 3 Est. Patient 17:12:58 CDT Yolande Lindsay MD [facility]-29999 Level 4 Est. Patient 13:30:58 CDT Yolande Lindsay MD [facility] CPT-98694 Level 4 New Patient 09:02:42 CDT Jared Og MD [facility]-27099 Level 3 Est. Patient 08:19:07 CDT Yolande Lindsay MD [facility] CPT-61143 Level 3 Est. Patient 12:00:13 GROUND PRODUCTS DIRECTOR Gab Padron MD [facility] CPT-37024 Level 3 Est. Patient 16:15:23 GROUND PRODUCTS DIRECTOR Yolande Lindsay MD [facility] CPT-88210 Level 2 Est. Patient 19:47:15 CDT Yolande Lindsay MD [facility] CPT-50741 Level 3 Est. Patient 21:38:31 CDT Yolande Lindsay MD [facility] CPT-94730 Level 3 Est. Patient 10:25:12 CDT Adiel PERAZA [facility] CPT-39698 Level 4 Est. Patient 10:51:58 CDT Yolande Lindsay MD [facility]-18916 Level 3 Est. Patient 14:04:55 GROUND PRODUCTS DIRECTOR Rodrigo Sarah [facility] CPT-41181 Level 3 Est. Patient 10:46:35 [employer] DIRECTOR Rodrigo Sarah [facility] CPT-13879 Level 3 Est. Patient 14:24:37 GROUND PRODUCTS DIRECTOR Yolande Lindsay MD [facility]-66254 Level 3 Est. Patient 17:41:58 GROUND PRODUCTS DIRECTOR Yolande Lindsay MD [facility]-58927 Level 2 Est. Patient 22:01:41 [employer]ODU[employer] DIRECTOR Rodrigo Sarah [facility] CPT-44558 Level 2 Est. Patient 22:01:11 [employer]ODUCTS DIRECTOR Rodrigo Sarah [facility] CPT-99860 Level 3 Est. Patient 10:12:29 GROUND PRODUCTS DIRECTOR Rodrigo Sarah [facility]-86027 Level 3 Est. Patient 11:05:44 CDT Alexis Ordaz MD [facility] CPT-45006 Level 3 Est. Patient 14:57:20 CDT Yolande Lindsay MD [facility]-52717 Level 3 Est. Patient 14:40:57 CDT Yolande Lindsay MD [facility]-90035 Level 3 Est. Patient 20:55:40 CDT Yolande Lindsay MD [facility]-40691 Level 3 Est. Patient 12:42:38 GROUND PRODUCTS DIRECTOR Yolande Lindsay MD [facility]122 Level 3 Est. Patient 11:54:49 GROUND PRODUCTS DIRECTOR Dse Hines MD [facility]-54300 Level 3 Est. Patient 17:06:38 CDT Dewayne PERAZA [facility] Procedures Code Procedure Name Date Entry Date Standard Description CPT-78345 First Vx - Ix admin via ID IM or jet injects without counseling by physician 13:08:42 GROUND PRODUCTS DIRECTOR CPT-57981 Fluzone Quadrivalent Intramuscular Suspension 0.5 ML 13: 08:42 GROUND PRODUCTS DIRECTOR CPT-J2930 Solu Medrol 125 mg (Methyl Prednisolone Sodium Succinate) 13:19:02 CDT CPT-48242 Abx/Therapy Injection 13:19:02 CDT CPT-J2930 Solu Medrol 125 mg (Methyl Prednisolone Sodium Succinate) 13:05:03 CDT CPT-52578 Hip, complete, 2-3 views - XRAY USE ONLY 17:19:04 GROUND PRODUCTS DIRECTOR CPT-84219 Venipuncture Draw Fee 08:37:59 GROUND PRODUCTS DIRECTOR CPT-28529 Liver Profile - LAB USE ONLY 08:37:59 GROUND PRODUCTS DIRECTOR CPT-44788 Lipid - LAB USE ONLY 08:37:58 GROUND PRODUCTS DIRECTOR CPT-83738 First Vx - Ix admin via ID IM or jet injects without counseling by physician 11:52:31 CDT CPT-35575 Fluzone Preservative Free Intramuscular Suspension 11:52 :31 CDT CPT-19945 Foot, left, comp min 3V - XRAY USE ONLY 09:24:54 CDT CPT-90697 Abd single AP View - XRAY USE ONLY 11:16:17 CDT CPT-45176 T spine AP/ Lat - XRAY USE ONLY 09:34:21 CDT CPT-55793 Chest 2V Frontal and Lat - XRAY USE ONLY 10:48:51 CDT CPT-99227 LS spine comp w obliq 13:28:00 GROUND PRODUCTS DIRECTOR CPT-J1040 Depo Medrol 80 mg (Methyl Prednisolone Acetate) 10:51: 28 GROUND PRODUCTS DIRECTOR CPT-J1100 Decadron 8mg (Dexamethasone) 10:51:28 GROUND PRODUCTS DIRECTOR CPT-56203 Abx/Therapy Injection 10:51:28 GROUND PRODUCTS DIRECTOR CPT-J1100 Decadron 8mg (Dexamethasone) 21:02:30 GROUND PRODUCTS DIRECTOR CPT-J1040 Depo Medrol 80 mg (Methyl Prednisolone Acetate) 21:02: 30 GROUND PRODUCTS DIRECTOR [id number] Event Monitor - MC Transmission 09:12:32 CDT 08/06 [id number] Event Monitor - MC review and interp 09:12:32 CDT [id number] Event Monitor - MC recording 09:12:32 CDT CPT-61748 EKG Trac and Interp 16:50:22 CDT CPT-J1030 Depo Medrol 40 mg (Methyl Prednisolone Acetate) 17:05: 54 CDT CPT-J1100 Decadron 4mg (Dexamethasone) 17:05:54 CDT CPT-22160 Abx/Therapy Injection 17:05:54 CDT CPT-J1100 Decadron 4mg (Dexamethasone) 16:55:28 CDT CPT-J1030 Depo Medrol 40 mg (Methyl Prednisolone Acetate) 16:55: 28 CDT CPT-09885 Ankle Complete - Min 3V 15:58:50 CDT CPT-56784 Knee 3V 15:58:50 CDT CPT-51367 Hip comp min 2V 15:58:50 CDT CPT-J2270 Morphine Sulfate 10 mg 14:25:44 GROUND PRODUCTS DIRECTOR CPT-J2550 Phenergan 12.5 mg (Promethazine) 14:25:44 GROUND PRODUCTS DIRECTOR CPT-57723 Abx/Therapy Injection 14:25:44 GROUND PRODUCTS DIRECTOR CPT-J2550 Phenergan 12.5 mg (Promethazine) 14:08:03 GROUND PRODUCTS DIRECTOR CPT-J2270 Morphine Sulfate 10 mg 14:08:03 GROUND PRODUCTS DIRECTOR CPT-31880 Bladder Scan 15:00:38 CDT CPT-TCMM Transitional Care Mgmt-Moderate 09:52:22 CDT CPT-J1030 Depo Medrol 40 mg (Methyl Prednisolone Acetate) 10:55: 18 CDT CPT-J1100 Decadron 4mg (Dexamethasone) 10:55:18 CDT CPT-53289 Abx/Therapy Injection 10:55:18 CDT CPT-J1030 Depo Medrol 40 mg (Methyl Prednisolone Acetate) 10:22: 32 CDT CPT-J1100 Decadron 4mg (Dexamethasone) 10:22:32 CDT CPT-62531 Postop F/U Visit 14:37:13 CDT CPT-24125 Ankle Complete - Min 3V 17:11:58 CDT CPT-25340 Foot comp min 3V 17:11:58 CDT CPT-27095 Bladder Scan 09:56:58 CDT CPT-81829 Postop F/U Visit 09:56:58 CDT CPT-15678 Cystoscopy 09:02:42 CDT CPT-75807 Bladder Scan 09:02:42 CDT CPT-52227 Abd single AP View 16:00:35 CDT CPT-98206 Administration single or combination vaccine inc oral 10 :15:43 CDT CPT-12122 Influenza split virus > age 3 10:15:43 CDT CPT-17612 Nail Avulsion 09:24:57 CDT CPT-OV Office Visit 11:15:41 CDT CPT-88842 Abx/Therapy Injection 10:51:30 CDT CPT-J3301 Kenalog 40 mg (Triamcinolone Acetonide) 10:25:12 CDT CPT-J1100 Decadron 4mg (Dexamethasone) 10:25:12 CDT CPT-16522 Anoscopy diagnostic 10:36:12 CDT CPT-OV Office Visit 15:34:31 CDT CPT-75185 Abx/Therapy Injection 08:21:15 GROUND PRODUCTS DIRECTOR CPT-J1885 Toradol 60 mg (Ketorolac) 10:46:35 GROUND PRODUCTS DIRECTOR CPT-OV Office Visit 19:51:16 GROUND PRODUCTS DIRECTOR CPT-14241 Spec Collection and Handling Fee 14:34:18 GROUND PRODUCTS DIRECTOR CPT-PV Prev. Care Visit 14:19:18 GROUND PRODUCTS DIRECTOR CPT-46891 Postop F/U Visit 14:47:51 GROUND PRODUCTS DIRECTOR CPT-49697 Postop F/U Visit 15:15:14 GROUND PRODUCTS DIRECTOR CPT-79074 Postop F/U Visit 14:41:43 CDT CPT-16604 Postop F/U Visit 15:47:46 CDT CPT-OV Office Visit 15:27:23 CDT CPT-OV Office Visit 17:20:34 CDT CPT-65738 Abx/Therapy Injection 15:05:57 CDT CPT-J1100 Decadron 8mg (Dexamethasone) 14:44:57 CDT CPT-J1040 Depo Medrol 80 mg (Methyl Prednisolone Acetate) 14:44: 57 CDT CPT-JTINJ Joint Injection 10:17:37 CDT CPT-70135 Administration 2+ single or combination vaccines inc oral 13:01:46 GROUND PRODUCTS DIRECTOR CPT-70351 Administration single or combination vaccine inc oral 13 :01:46 GROUND PRODUCTS DIRECTOR CPT-49563 Pneumovax 13:01:46 GROUND PRODUCTS DIRECTOR CPT-28387 Influenza split virus > age 3 13:01:46 GROUND PRODUCTS DIRECTOR CPT-32490 Administration single or combination vaccine inc oral 08 :56:49 CDT CPT-38602 Tdap 08:56:49 CDT
--- OUTSIDE RECORDS SUMMARY | 2017-03-22 02:24 | XMS REPORT | Clinical Summary ---
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 PACK INSPECTOR TRAZODONE HCL sees things Critical Active [...] Jared Og MD Rectocele Hematuria 599.70 Resolved Yloande Lindsay MD PhD Hematuria, unspecified Health maintenance [...] tab by mouth daily CALCIUM CARBONATE-VIT D-MIN 64541868814 Active Yolande Lindsay MD PhD Active ONDANSETRON 4 MG TBDP 1 q4h PRN nausea ONDANSETRON 39006653966 Active Yolande Lindsay MD PhD Active ADULT ASPIRIN EC LOW STRENGTH 81 MG TBEC Take 1 tablet by mouth daily 2014 ASPIRIN 17719843272 No Longer Active Yolande Lindsay MD PhD Active ZOFRAN ODT 4 MG TBDP 1 pill dissolved by mouth every 4 hours if needed for nausea ONDANSETRON 48552095418 No Longer Active Yolande Lindsay MD PhD Active CEFTIN 500 MG TAB 1 twice a day CEFUROXIME AXETIL 21339969693 No Longer Active Yolande Lindsay MD PhD Active ALBUTEROL SULFATE 0.083 % NEBU SOLN one vial per nebulizer every 4-6 hours as needed ALBUTEROL SULFATE 97295240521 No Longer Active Alexis Ordaz MD Active DOXYCYCLINE HYCLATE 100 MG CAP 1 cap by mouth twice daily DOXYCYCLINE HYCLATE 64917095885 No Longer Active Yolande Lindsay MD PhD Active CYCLOBENZAPRINE HCL 10 MG TABS 1/2 - 1 tab by mouth three times daily if needed for spasms/pain CYCLOBENZAPRINE HCL 65888990104 No Longer Active Yolande Lindsay MD PhD Active TRILEPTAL 600 MG TABS Take one 1/2 tablet in Am and 1 tablet at night OXCARBAZEPINE 05077334520 Active Yolande Lindsay MD PhD Active AZITHROMYCIN 250 MG TABS 2 pills on day 1, then 1 pill daily x 4 days AZITHROMYCIN 38596219559 No Longer Active Yolande Lindsay MD PhD Active XOPENEX 1.25 MG/3ML NEBU 1 neb every 4 hours if needed for cough/congestion LEVALBUTEROL HCL 66278113311 No Longer Active Yolande Lindsay MD PhD Active DOXYCYCLINE HYCLATE 100 MG TAB 1 tab twice a day for 14 days 2013 DOXYCYCLINE HYCLATE 57600063206 No Longer Active Yolande Lindsay MD PhD Active LEVOTHYROXINE SODIUM 75 MCG TABS Take 1 tab daily LEVOTHYROXINE SODIUM 60441478481 Active Yolande Lindsay MD PhD Active PREVACID 30 MG CPDR Take 1 tablet by mouth daily-PRN LANSOPRAZOLE 01252950609 No Longer Active Yolande Lindsay MD PhD Active PA VITAMIN D-3 2000 UNIT CAPS 1 CAP PO DAILY CHOLECALCIFEROL 45307990336 No Longer Active Yolande Lindsay MD PhD Active CEFDINIR 300 MG CAPS by mouth twice a day CEFDINIR 97078564732 No Longer Active Gab Padron MD Active TOPAMAX 50 MG TABS 1 PO twice daily TOPIRAMATE 40363994093 Active Yolande Lindsay MD PhD Active AZITHROMYCIN 250 MG TABS 2 po qd x 1 day, then 1 po qd x 4 days AZITHROMYCIN 86654301761 No Longer Active Yolande Lindsay MD PhD Active DICLOFENAC SODIUM 75 MG TBEC 1 tablet by q 12 hours PRN headaches DICLOFENAC SODIUM 73521161125 No Longer Active Yolande Lindsay MD PhD Active FLONASE 50 MCG/ACT SUSP 1 spray each nostril am and hs FLUTICASONE PROPIONATE 01591331274 No Longer Active Todd Callaway MD Active ANUSOL-HC 25 MG SUPPOSITORY 1 rectally twice a day as needed for hemorrhoids HYDROCORTISONE JAYDEN (RECTAL) 14127610055 No Longer Active Yolande Lindsay MD PhD Active ANUSOL-HC 25 MG SUPPOSITORY 1 suppository rectally each evening as needed for anal fissure HYDROCORTISONE JAYDEN (RECTAL) 65285355817 No Longer Active LONNIE Iglesias Active VALIUM 5 MG TAB 1 po 30 minutes prior to your MRI DIAZEPAM 18255892630 No Longer Active LONNIE Iglesias Active METHOCARBAMOL 750 MG TABS 1 PO QID PRN METHOCARBAMOL 01367361758 No Longer Active Daphne Wetzel APRN Active NITROSTAT 0.4 MG SUBL as directed NITROGLYCERIN 41904932592 No Longer Active Rodrigo Sarah APRN Active ROBAXIN-750 750 MG TABS 2 four times a day for 3 days as needed for muscle spasm, then 1 four times a day as needed METHOCARBAMOL 18197948184 No Longer Active Rodrigo Sarah APRN Active HYDROCODONE-ACETAMINOPHEN 5-325 MG TABS 1 q 4-6 hrs prn HYDROCODONE-ACETAMINOPHEN 96739286432 No Longer Active Rodrigo Sarah APRN Active VERAPAMIL HCL CR 180 MG CR-TABS TAKE 1 TAB DAILY VERAPAMIL HCL 36144424692 No Longer Active Yolande Lindsay MD PhD Active BACTRIM DS 800-160 MG TAB 1 tab by mouth twice daily TRIMETHOPRIM-SULFAMETHOXAZOLE 46774297026 No Longer Active Yolande Lindsay MD PhD Active NEXIUM 40 MG PACK 1 by mouth daily ESOMEPRAZOLE MAGNESIUM 61053355672 No Longer Active Des Hines MD Active EPIPEN 2-CHARLETTE 0.3 MG/0.3ML OMARI as need for allergic reaction EPINEPHRINE 21558625856 Active Yolande Lindsay MD PhD Active LISINOPRIL 10 MG TABS 1 PO Q D FOR BP LISINOPRIL 18705562580 Active Yolande Lindsay MD PhD Active NEXIUM 40 MG CPDR 1 PO Q D DAY ESOMEPRAZOLE MAGNESIUM 42218373687 No Longer Active Sadia Orlando MIGUEL Active NEXIUM 40 MG PACK 1 by mouth daily NEXIUM 40 MG PACK ESOMEPRAZOLE MAGNESIUM Inactive VERAPAMIL HCL CR 180 MG CR-TABS TAKE 1 TAB DAILY VERAPAMIL HCL CR 180 MG CR-TABS VERAPAMIL HCL Inactive HYDROCODONE-ACETAMINOPHEN 5-325 MG TABS 1 q 4-6 hrs prn HYDROCODONE-ACETAMINOPHEN 5-325 MG TABS 959170 HYDROCODONE-ACETAMINOPHEN Inactive ROBAXIN-750 750 MG TABS 2 four times a day for 3 days as needed for muscle spasm, then 1 four times a day as needed ROBAXIN-750 750 MG TABS 691700 METHOCARBAMOL Inactive NITROSTAT 0.4 MG SUBL as directed NITROSTAT 0.4 MG SUBL NITROGLYCERIN Inactive METHOCARBAMOL 750 MG TABS 1 PO QID PRN METHOCARBAMOL 750 MG TABS 385378 METHOCARBAMOL Inactive VALIUM 5 MG TAB 1 po 30 minutes prior to your MRI VALIUM 5 MG TAB 900498 DIAZEPAM Inactive ANUSOL-HC 25 MG SUPPOSITORY 1 suppository rectally each evening as needed for anal fissure ANUSOL-HC 25 MG SUPPOSITORY 5316502 HYDROCORTISONE JAYDEN (RECTAL) Inactive ANUSOL-HC 25 MG SUPPOSITORY 1 rectally twice a day as needed for hemorrhoids ANUSOL-HC 25 MG SUPPOSITORY 2576185 HYDROCORTISONE JAYDEN (RECTAL) Inactive FLONASE 50 MCG/ACT SUSP 1 spray each nostril am and hs FLONASE 50 MCG/ACT SUSP 778170 FLUTICASONE PROPIONATE Inactive DICLOFENAC SODIUM 75 MG TBEC 1 tablet by q 12 hours PRN headaches DICLOFENAC SODIUM 75 MG TBEC 919493 DICLOFENAC SODIUM Inactive PA VITAMIN D-3 2000 UNIT CAPS 1 CAP PO DAILY PA VITAMIN D-3 2000 UNIT CAPS CHOLECALCIFEROL Inactive PREVACID 30 MG CPDR Take 1 tablet by mouth daily-PRN PREVACID 30 MG CPDR 069508 LANSOPRAZOLE Inactive DOXYCYCLINE HYCLATE 100 MG TAB 1 tab twice a day for 14 days 2013 DOXYCYCLINE HYCLATE 100 MG TAB 223927 DOXYCYCLINE HYCLATE Inactive XOPENEX 1.25 MG/3ML NEBU 1 neb every 4 hours if needed for cough/congestion XOPENEX 1.25 MG/3ML NEBU LEVALBUTEROL HCL Inactive CYCLOBENZAPRINE HCL 10 MG TABS 1/2 - 1 tab by mouth three times daily if needed for spasms/pain CYCLOBENZAPRINE HCL 10 MG TABS 823089 CYCLOBENZAPRINE HCL Inactive ALBUTEROL SULFATE 0.083 % NEBU SOLN one vial per nebulizer every 4-6 hours as needed ALBUTEROL SULFATE 0.083 % NEBU SOLN 774672 ALBUTEROL SULFATE Inactive CEFTIN 500 MG TAB 1 twice a day CEFTIN 500 MG TAB 466912 CEFUROXIME AXETIL Inactive ZOFRAN ODT 4 MG TBDP 1 pill dissolved by mouth every 4 hours if needed for nausea ZOFRAN ODT 4 MG TBDP 398165 ONDANSETRON Inactive ADULT ASPIRIN EC LOW STRENGTH 81 MG TBEC Take 1 tablet by mouth daily 2014 ADULT ASPIRIN EC LOW STRENGTH 81 MG TBEC 138437 ASPIRIN Inactive BACTRIM DS 800-160 MG TAB 1 tab by mouth twice daily BACTRIM DS 800-160 MG TAB TRIMETHOPRIM-SULFAMETHOXAZOLE Inactive AZITHROMYCIN 250 MG TABS 2 po qd x 1 day, then 1 po qd x 4 days AZITHROMYCIN 250 MG TABS 9445304 AZITHROMYCIN Inactive CEFDINIR 300 MG CAPS by mouth twice a day CEFDINIR 300 MG CAPS 20020708 CEFDINIR Inactive AZITHROMYCIN 250 MG TABS 2 pills on day 1, then 1 pill daily x 4 days AZITHROMYCIN 250 MG TABS 4787792 AZITHROMYCIN Inactive DOXYCYCLINE HYCLATE 100 MG CAP 1 cap by mouth twice daily DOXYCYCLINE HYCLATE 100 MG CAP 19890510 DOXYCYCLINE HYCLATE Inactive Immunizations Vaccine Administration Date Value Standard Description Seasonal influenza vaccine, injectable, containing preservative, for > 3 years old (Afluria, FluLaval, Fluzone, Fluvirin, Fluarix, Agriflu(>=18 yo)) Fluzone (>3 yrs.) [[id number]] Influenza, seasonal, injectable influenza immunization (Flu Vax) has been administered Influenza - Unspecified Formulation [CVX88] influenza virus vaccine, unspecified formulation pneumococcal immunization administered Pneumovax 23 [CVX33] pneumococcal polysaccharide vaccine, 23 valent Seasonal influenza vaccine, injectable, containing preservative, for > 3 years old (Afluria, FluLaval, Fluzone, Fluvirin, Fluarix, Agriflu(>=18 yo)) Fluzone (>3 yrs.) [MFV195] Influenza, seasonal, injectable dT (Diphtheria and Tetanus) booster given given Td(adult) unspecified formulation Boostrix (Tetanus toxoid, reduced diphtheria toxoid and acellular pertussis vaccine, adsorbed), booster Boostrix [ORO347] tetanus toxoid, reduced diphtheria toxoid, and acellular [...] Panel - Chemistry sodium, serum 144 mmol/L 139-473 9201/01/21 potassium, serum 4.2 mmol/L 3.5-5.2 chloride, serum [...] Panel - Chemistry sodium, serum 144 mmol/L 586-434 2414/12/15 potassium, serum 5.4 mmol/L 3.5-5.2 chloride, serum [...] dipstick Negative Negative sodium, serum 143 mmol/L 945-128 8227/10/24 potassium, serum 3.9 mmol/L 3.5-5.2 chloride, serum [...] 51 mg/dL 30-200 cholesterol, serum 173 mg/dL 070-210 3832/04/28 HDL cholesterol, serum 63 mg/dL 32-96 LDL [...] 1.010 Encounters Code Encounter Date Provider Facility CPT-53241 Level 3 Est. Patient 17:03:46 CDT Yolande Lindsay MD PhD [facility] CPT-75054 Level 4 Est. Patient 20:02:13 BANKING MANAGEMENT CONSULTING MANAGER Yolande Lindsay MD [facility]-21537 Level 3 Est. Patient 16:02:07 BANKING MANAGEMENT CONSULTING MANAGER Alexis Ordaz MD [facility] [place]-[address] Level 3 Est. Patient 12:41:24 BANKING MANAGEMENT CONSULTING MANAGER Yolande Lindsay MD [facility]-[address]320 Level 3 Est. Patient 15:41:20 BANKING MANAGEMENT CONSULTING MANAGER Yolande Lindsay MD [facility]-77269 Level 3 Est. Patient 13:20:02 BANKING MANAGEMENT CONSULTING MANAGER Yolande Lindsay MD [facility]-[address]354 Level 3 Est. Patient 15:00:38 CDT Jared Og MD [facility]-[address]792 Level 3 Est. Patient 10:22:32 CDT Yolande Lindsay MD [facility]-25873 Level 3 Est. Patient 17:12:58 CDT Yolande Lindsay MD [facility] CPT-24832 Level 4 Est. Patient 13:30:58 CDT Yolande Lindsay MD [facility] CPT-21759 Level 4 New Patient 09:02:42 CDT Jared Og MD [facility]-09127 Level 3 Est. Patient 08:19:07 CDT Yolande Lindsay MD [facility] CPT-82073 Level 3 Est. Patient 12:00:13 BANKING MANAGEMENT CONSULTING MANAGER Gab Padron MD [facility] CPT-52753 Level 3 Est. Patient 16:15:23 BANKING MANAGEMENT CONSULTING MANAGER Yolande Lindsay MD [facility]-[address]314 Level 2 Est. Patient 19:47:15 CDT Yolande Lindsay MD [facility]-98802 Level 3 Est. Patient 21:38:31 CDT Yolande Lindsay MD [facility]-39324 Level 3 Est. Patient 10:25:12 CDT Adiel PERAZA [facility] [place]-[address] Level 4 Est. Patient 10:51:58 CDT Yolande Lindsay MD [facility]-69353 Level 3 Est. Patient 14:04:55 BANKING MANAGEMENT CONSULTING MANAGER Rodrigo Sarah [facility]-[address] Level 3 Est. Patient 10:46:35 BANKING MANAGEMENT CONSULTING MANAGER Rodrigo Sarah [facility]-[address]164 Level 3 Est. Patient 14:24:37 BANKING MANAGEMENT CONSULTING MANAGER Yolande Lindsay MD [facility]-30472 Level 3 Est. Patient 17:41:58 BANKING MANAGEMENT CONSULTING MANAGER Yolande Lindsay MD [facility]-81194 Level 2 Est. Patient 22:01:41 BANKING MANAGEMENT CONSULTING MANAGER Rodrigo Sarah [facility]-[address]40 Level 2 Est. Patient 22:01:11 BANKING MANAGEMENT CONSULTING MANAGER Rodrigo Sarah [facility]-[address]23 Level 3 Est. Patient 10:12:29 BANKING MANAGEMENT CONSULTING MANAGER Rodrigo Sarah [facility]-[address]49 Level 3 Est. Patient 11:05:44 CDT Alexis Ordaz MD [facility] [place]-[address] Level 3 Est. Patient 14:57:20 CDT Yolande Lindsay MD [facility]-14197 Level 3 Est. Patient 14:40:57 CDT Yolande Lindsay MD [facility]-13919 Level 3 Est. Patient 20:55:40 CDT Yolande Lindsay MD [facility]-88449 Level 3 Est. Patient 12:42:38 BANKING MANAGEMENT CONSULTING MANAGER Yolande Lindsay MD [facility] Level 3 Est. Patient 11:54:49 BANKING MANAGEMENT CONSULTING MANAGER Des Hines MD [facility] CPT-61795 Level 3 Est. Patient 17:06:38 CDT Dewayne PERAZA [facility] Procedures Code Procedure Name Date Entry Date Standard Description CPT-84238 EKG Trac and Interp 16:50:22 CDT CPT-J1030 Depo Medrol 40 mg (Methyl Prednisolone Acetate) 17:05: 54 CDT CPT-J1100 Decadron 4mg (Dexamethasone) 17:05:54 CDT CPT-15967 Abx/Therapy Injection 17:05:54 CDT CPT-J1100 Decadron 4mg (Dexamethasone) 16:55:28 CDT CPT-J1030 Depo Medrol 40 mg (Methyl Prednisolone Acetate) 16:55: 28 CDT CPT-71294 Ankle Complete - Min 3V 15:58:50 CDT CPT-43029 Knee 3V 15:58:50 CDT CPT-93346 Hip comp min 2V 15:58:50 CDT CPT-J2270 Morphine Sulfate 10 mg 14:25:44 BANKING MANAGEMENT CONSULTING MANAGER CPT-J2550 Phenergan 12.5 mg (Promethazine) 14:25:44 BANKING MANAGEMENT CONSULTING MANAGER CPT-66540 Abx/Therapy Injection 14:25:44 BANKING MANAGEMENT CONSULTING MANAGER CPT-J2550 Phenergan 12.5 mg (Promethazine) 14:08:03 BANKING MANAGEMENT CONSULTING MANAGER CPT-J2270 Morphine Sulfate 10 mg 14:08:03 BANKING MANAGEMENT CONSULTING MANAGER CPT-03521 Bladder Scan 15:00:38 CDT CPT-TCMM Transitional Care Mgmt-Moderate 09:52:22 CDT CPT-J1030 Depo Medrol 40 mg (Methyl Prednisolone Acetate) 10:55: 18 CDT CPT-J1100 Decadron 4mg (Dexamethasone) 10:55:18 CDT CPT-71162 Abx/Therapy Injection 10:55:18 CDT CPT-J1030 Depo Medrol 40 mg (Methyl Prednisolone Acetate) 10:22: 32 CDT CPT-J1100 Decadron 4mg (Dexamethasone) 10:22:32 CDT CPT-16658 Postop F/U Visit 14:37:13 CDT CPT-97133 Ankle Complete - Min 3V 17:11:58 CDT CPT-49420 Foot comp min 3V 17:11:58 CDT CPT-35018 Bladder Scan 09:56:58 CDT CPT-76351 Postop F/U Visit 09:56:58 CDT CPT-21180 Cystoscopy 09:02:42 CDT CPT-24626 Bladder Scan 09:02:42 CDT CPT-35589 Abd single AP View 16:00:35 CDT CPT-88366 Administration single or combination vaccine inc oral 10 :15:43 CDT CPT-00820 Influenza split virus > age 3 10:15:43 CDT CPT-64359 Nail Avulsion 09:24:57 CDT CPT-OV Office Visit 11:15:41 CDT CPT-09978 Abx/Therapy Injection 10:51:30 CDT CPT-J3301 Kenalog 40 mg (Triamcinolone Acetonide) 10:25:12 CDT CPT-J1100 Decadron 4mg (Dexamethasone) 10:25:12 CDT CPT-96640 Anoscopy diagnostic 10:36:12 CDT CPT-OV Office Visit 15:34:31 CDT CPT-57802 Abx/Therapy Injection 08:21:15 BANKING MANAGEMENT CONSULTING MANAGER CPT-J1885 Toradol 60 mg (Ketorolac) 10:46:35 BANKING MANAGEMENT CONSULTING MANAGER CPT-OV Office Visit 19:51:16 BANKING MANAGEMENT CONSULTING MANAGER CPT-87091 Spec Collection and Handling Fee 14:34:18 BANKING MANAGEMENT CONSULTING MANAGER CPT-PV Prev. Care Visit 14:19:18 BANKING MANAGEMENT CONSULTING MANAGER CPT-47104 Postop F/U Visit 14:47:51 BANKING MANAGEMENT CONSULTING MANAGER CPT-00694 Postop F/U Visit 15:15:14 BANKING MANAGEMENT CONSULTING MANAGER CPT-29412 Postop F/U Visit 14:41:43 CDT CPT-38347 Postop F/U Visit 15:47:46 CDT CPT-OV Office Visit 15:27:23 CDT CPT-OV Office Visit 17:20:34 CDT CPT-99733 Abx/Therapy Injection 15:05:57 CDT CPT-J1100 Decadron 8mg (Dexamethasone) 14:44:57 CDT CPT-J1040 Depo Medrol 80 mg (Methyl Prednisolone Acetate) 14:44: 57 CDT CPT-JTINJ Joint Injection 10:17:37 CDT CPT-51684 Administration 2+ single or combination vaccines inc oral 13:01:46 BANKING MANAGEMENT CONSULTING MANAGER CPT-36876 Administration single or combination vaccine inc oral 13 :01:46 BANKING MANAGEMENT CONSULTING MANAGER CPT-64730 Pneumovax 13:01:46 BANKING MANAGEMENT CONSULTING MANAGER CPT-91996 Influenza split virus > age 3 13:01:46 BANKING MANAGEMENT CONSULTING MANAGER CPT-31329 Administration single or combination vaccine inc oral 08 :56:49 CDT CPT-70140 Tdap 08:56:49 CDT
--- OUTSIDE RECORDS SUMMARY | 2017-03-22 02:27 | XMS REPORT | Clinical Summary ---
Author Author Admin, MARGRET Organization [employer] Address Unknown Phone Unavailable Allergies, Adverse Reactions, Alerts Allergy Name Reaction Description Start Date Severity Status Provider VALENTIN Critical Active Rodrigo Montemayorl PROPOSAL ANALYST CHLORHEXIDINE GLUCONATE tongue and gums swollen Critical Active Hoa Kabaford RMA NORFLEX Rash Critical Active Rowenaina Farshadzell PROPOSAL ANALYST TRAZODONE HCL sees things Critical Active [...] care facility Ankle pain, right 719.47 Resolved Yoladne Lindsay MD PhD Pain in joint involving [...] of 412 Active Hoa Otto [facility] Old myocardial infarction Pelvic pain 789.09 Resolved [...] Padron MD Anemia, unspecified Conjunctivitis 372.30 Resolved Gba Padron MD Conjunctivitis, unspecified Sinusitis 473.9 Resolved [...] PhD Abdominal pain, LLQ ICD-789.04 Inactive Yolande Lindasy MD PhD Accidental fall ICD-E888.9 Inactive Yolande [...] for up to 2 weeks TRIAMCINOLONE ACETONIDE 26787991749 Active Tisha Lambert APRN Active LISINOPRIL 40 MG TABS 1 tablet by mouth daily LISINOPRIL 20165519066 Active Tisha Lambert APRN Active IBUPROFEN 600 MG TAB 1 tablet by mouth every 6 hours for 7 days, then 1 tablet every 6 hours as needed. Take with food IBUPROFEN 32318869717 No Longer Active Tisha Lambert APRN Active PREDNISONE 20 MG TAB 1 tab twice daily for 3 day, then one daily for three days PREDNISONE 13834895563 No Longer Active Tisha Lambert APRN Active TRIAMCINOLONE ACETONIDE 0.1 % CREA apply bid sparingly to rash TRIAMCINOLONE ACETONIDE 07496171912 No Longer Active Gab Padron MD Active TRAMADOL HCL 50 MG TABS 1 tab po every 6 hrs prn pain TRAMADOL HCL 93570931425 No Longer Active Gab Padron MD Active BACTRIM DS 800-160 MG TAB 1 tab by mouth twice daily TRIMETHOPRIM-SULFAMETHOXAZOLE 77170573237 No Longer Active Tisha Lambert APRN Active ADVAIR DISKUS 250-50 MCG/DOSE AEPB 1 puff BID FLUTICASONE-SALMETEROL 07472469812 No Longer Active Todd Callaway MD Active ONDANSETRON 4 MG TBDP 1 q4h PRN nausea ONDANSETRON 04128554440 No Longer Active LONNIE Iglesias Active FISH OIL 1000 MG CAPS 3 pills daily OMEGA-3 FATTY ACIDS 52992657244 No Longer Active LONNIE Iglesias Active CETIRIZINE HCL 10 MG ORAL TABS 1 po qd PRN Allergies CETIRIZINE HCL 39810210101 Active Gab Padron MD Active CLARITIN 10 MG TAB 1 tablet by mouth daily as needed for allergies LORATADINE 71225258259 No Longer Active Gab Padron MD Active PREDNISONE 20 MG TAB take 3 tabs daily for 3 days, 2 tabs daily for 3 days, 1 tab daily for 3 days, 1/2 tab daily for 3 days PREDNISONE 35295162188 No Longer Active Tisha Lambert APRN Active PREDNISONE 20 MG TAB 2 tabs daily for 3 days, 1 tab daily for 3 days, 1/2 tab daily for 2 days PREDNISONE 15032132168 No Longer Active Gab Padron MD Active ZOFRAN ODT 4 MG TBDP 1 po q6hr PRN Nausea ONDANSETRON 03335295434 Active Gab Padron MD Active BACTRIM DS 800-160 MG TAB 1 tab by mouth twice daily TRIMETHOPRIM-SULFAMETHOXAZOLE 43350829094 No Longer Active Gab Padron MD Active LEVOTHYROXINE SODIUM 75 MCG TABS Take 1 tab daily LEVOTHYROXINE SODIUM 64439023016 No Longer Active Mariana FLEMING Active SYNTHROID 88 MCG ORAL TABS Take one by mouth daily LEVOTHYROXINE SODIUM 00443980340 Active iTsha Lambert APRN Active CHERATUSSIN AC 100-10 MG/5ML SYRP 1 tsp by mouth every 4 hours as needed for cough GUAIFENESIN-CODEINE 27086751375 No Longer Active Gab Padron MD Active POLYTRIM 13136-9.1 UNIT/ML-% SOLN 1 gtt to affected eye q3h x 7 days POLYMYXIN B-TRIMETHOPRIM 27550078284 No Longer Active Gab Padron MD Active FLUTICASONE PROPIONATE 50 MCG/ACT SUSP 1 to 2 sprays each nostril daily 04/21 FLUTICASONE PROPIONATE 45788648702 No Longer Active Gab Padron MD Active TRILEPTAL 600 MG TABS Take one 1 tablet in Am and 1 tablet at night OXCARBAZEPINE 76664922721 Active Gab Padron MD Active CEFDINIR 300 MG CAPS 1 po BID x 10 days CEFDINIR 63925946587 No Longer Active Rowenaina Tyrel GAUTAM Active CEFTIN 500 MG TAB 1 twice a day CEFUROXIME AXETIL 33653017038 No Longer Active Gab Padron MD Active AZITHROMYCIN 250 MG TABS 2 po qd x 1 day, then 1 po qd x 4 days AZITHROMYCIN 56404270732 No Longer Active Silvestrellnacho Sarah APRN Active OXYCODONE HCL 5 MG ORAL CAPS 1 TAB PO Q HS OXYCODONE HCL 44980687077 No Longer Active Jillina Frahossein GAUTAM Active NIASPAN 500 MG ORAL CR-TABS 1 pill nightly x 1 week, then 2 pills nightly x 1 week, then 3 pills nightly x 1 week, then 4 pills nightly NIACIN (ANTIHYPERLIPIDEMIC) 41544572055 No Longer Active Silvestrellina Tyrel GAUTAM Active NIACIN 500 MG TABS 1 pill by mouth nightly x 1 week, then 2 pills x 1 week, then 3 pills x 1 week, then 4 pills nightly - take after evening meal, with applesauce or an apple NIACIN 03606322060 No Longer Active Yolande Lindsay MD PhD Active FUROSEMIDE 20 MG TAB 1 tablet by mouth daily FUROSEMIDE 97894926871 Active Gab Padron MD Active FUROSEMIDE 20 MG TABS 1 pill by mouth daily, for edema FUROSEMIDE 20622802068 No Longer Active Yolande Lindsay MD PhD Active ATORVASTATIN CALCIUM 10 MG TABS 1 pill by mouth daily, for cholesterol 09/06 ATORVASTATIN CALCIUM 44857012786 Active Gab Padron MD Active CALCIUM 600+D PLUS MINERALS 600-400 MG-UNIT ORAL CHEW 1 tab by mouth daily CALCIUM CARBONATE-VIT D-MIN 57125571789 No Longer Active Yolande Lindsay MD PhD Active CYCLOBENZAPRINE HCL 10 MG TABS 1 tablet by mouth three times daily as needed for muscle spasm/pain CYCLOBENZAPRINE HCL 27409733761 Active Yolande Lindsay MD PhD Active ADULT ASPIRIN EC LOW STRENGTH 81 MG TBEC Take 1 tablet by mouth daily 2014 ASPIRIN 23913061471 No Longer Active Yolande Lindsay MD PhD Active ZOFRAN ODT 4 MG TBDP 1 pill dissolved by mouth every 4 hours if needed for nausea ONDANSETRON 95917758072 No Longer Active Yolande Lindsay MD PhD Active CEFTIN 500 MG TAB 1 twice a day CEFUROXIME AXETIL 55547398199 No Longer Active Yolande Lindsay MD PhD Active ALBUTEROL SULFATE 0.083 % NEBU SOLN one vial per nebulizer every 4-6 hours as needed ALBUTEROL SULFATE 16000564729 No Longer Active Alexis Ordaz MD Active DOXYCYCLINE HYCLATE 100 MG CAP 1 cap by mouth twice daily DOXYCYCLINE HYCLATE 95130249521 No Longer Active Yolande Lindsay MD PhD Active CYCLOBENZAPRINE HCL 10 MG TABS 1/2 - 1 tab by mouth three times daily if needed for spasms/pain CYCLOBENZAPRINE HCL 95711007333 No Longer Active Yolande Lindsay MD PhD Active AZITHROMYCIN 250 MG TABS 2 pills on day 1, then 1 pill daily x 4 days AZITHROMYCIN 44868313863 No Longer Active Yolande Lindsay MD PhD Active XOPENEX 1.25 MG/3ML NEBU 1 neb every 4 hours if needed for cough/congestion LEVALBUTEROL HCL 59356061800 No Longer Active Yolande Lindsay MD PhD Active DOXYCYCLINE HYCLATE 100 MG TAB 1 tab twice a day for 14 days 2013 DOXYCYCLINE HYCLATE 00751457916 No Longer Active Yolande Lindsay MD PhD Active PREVACID 30 MG CPDR Take 1 tablet by mouth daily-PRN LANSOPRAZOLE 52717799129 No Longer Active Yolande Lindsay MD PhD Active PA VITAMIN D-3 2000 UNIT CAPS 1 CAP PO DAILY CHOLECALCIFEROL 53782482111 No Longer Active Yolande Lindsay MD PhD Active CEFDINIR 300 MG CAPS by mouth twice a day CEFDINIR 48244968177 No Longer Active Gab Padron MD Active TOPAMAX 50 MG TABS 1 PO twice daily TOPIRAMATE 50421166438 Active Yolande Lindsay MD PhD Active AZITHROMYCIN 250 MG TABS 2 po qd x 1 day, then 1 po qd x 4 days AZITHROMYCIN 35948431888 No Longer Active Yolande Lindsay MD PhD Active DICLOFENAC SODIUM 75 MG TBEC 1 tablet by q 12 hours PRN headaches DICLOFENAC SODIUM 48145652416 No Longer Active Yolande Lindsay MD PhD Active FLONASE 50 MCG/ACT SUSP 1 spray each nostril am and hs FLUTICASONE PROPIONATE 03657237146 No Longer Active Todd Callaway MD Active ANUSOL-HC 25 MG SUPPOSITORY 1 rectally twice a day as needed for hemorrhoids HYDROCORTISONE JAYDEN (RECTAL) 14675746989 No Longer Active Yolande Lindsay MD PhD Active ANUSOL-HC 25 MG SUPPOSITORY 1 suppository rectally each evening as needed for anal fissure HYDROCORTISONE JAYDEN (RECTAL) 65717869035 No Longer Active LONNIE Iglesias Active VALIUM 5 MG TAB 1 po 30 minutes prior to your MRI DIAZEPAM 85256748571 No Longer Active Bozena Gutierrezeau LONNIE Active METHOCARBAMOL 750 MG TABS 1 PO QID PRN METHOCARBAMOL 84868824408 No Longer Active Daphneila Wetzel PROPOSAL ANALYST Active NITROSTAT 0.4 MG SUBL as directed NITROGLYCERIN 35222998281 No Longer Active Rodrigo Sarah PROPOSAL ANALYST Active ROBAXIN-750 750 MG TABS 2 four times a day for 3 days as needed for muscle spasm, then 1 four times a day as needed METHOCARBAMOL 19723213837 No Longer Active Rodrigo Sarah APRN Active HYDROCODONE-ACETAMINOPHEN 5-325 MG TABS 1 q 4-6 hrs prn HYDROCODONE-ACETAMINOPHEN 76013613442 No Longer Active Silvestrellnacho Sarah APRN Active VERAPAMIL HCL CR 180 MG CR-TABS TAKE 1 TAB DAILY VERAPAMIL HCL 75411012751 No Longer Active Yloande Lindsay MD PhD Active BACTRIM DS 800-160 MG TAB 1 tab by mouth twice daily TRIMETHOPRIM-SULFAMETHOXAZOLE 93624884517 No Longer Active Yolande Lindsay MD PhD Active NEXIUM 40 MG PACK 1 by mouth daily ESOMEPRAZOLE MAGNESIUM 86232045454 No Longer Active Des Hines MD Active EPIPEN 2-CHARLETTE 0.3 MG/0.3ML OMARI as need for allergic reaction EPINEPHRINE 65323709175 Active Yolande Lindsay MD PhD Active NEXIUM 40 MG CPDR 1 PO Q D DAY ESOMEPRAZOLE MAGNESIUM 78708302357 No Longer Active Sadia Perry RN Active NEXIUM 40 MG PACK 1 by mouth daily NEXIUM 40 MG PACK ESOMEPRAZOLE MAGNESIUM Inactive VERAPAMIL HCL CR 180 MG CR-TABS TAKE 1 TAB DAILY VERAPAMIL HCL CR 180 MG CR-TABS VERAPAMIL HCL Inactive HYDROCODONE-ACETAMINOPHEN 5-325 MG TABS 1 q 4-6 hrs prn HYDROCODONE-ACETAMINOPHEN 5-325 MG TABS 154909 HYDROCODONE-ACETAMINOPHEN Inactive ROBAXIN-750 750 MG TABS 2 four times a day for 3 days as needed for muscle spasm, then 1 four times a day as needed ROBAXIN-750 750 MG TABS 694783 METHOCARBAMOL Inactive NITROSTAT 0.4 MG SUBL as directed NITROSTAT 0.4 MG SUBL 560518 NITROGLYCERIN Inactive METHOCARBAMOL 750 MG TABS 1 PO QID PRN METHOCARBAMOL 750 MG TABS 105600 METHOCARBAMOL Inactive VALIUM 5 MG TAB 1 po 30 minutes prior to your MRI VALIUM 5 MG TAB 597625 DIAZEPAM Inactive ANUSOL-HC 25 MG SUPPOSITORY 1 suppository rectally each evening as needed for anal fissure ANUSOL-HC 25 MG SUPPOSITORY 6778198 HYDROCORTISONE JAYDEN (RECTAL) Inactive ANUSOL-HC 25 MG SUPPOSITORY 1 rectally twice a day as needed for hemorrhoids ANUSOL-HC 25 MG SUPPOSITORY 2907458 HYDROCORTISONE JAYDEN (RECTAL) Inactive FLONASE 50 MCG/ACT SUSP 1 spray each nostril am and hs FLONASE 50 MCG/ACT SUSP 7249764 FLUTICASONE PROPIONATE Inactive DICLOFENAC SODIUM 75 MG TBEC 1 tablet by q 12 hours PRN headaches DICLOFENAC SODIUM 75 MG TBEC 511848 DICLOFENAC SODIUM Inactive PA VITAMIN D-3 2000 UNIT CAPS 1 CAP PO DAILY PA VITAMIN D-3 2000 UNIT CAPS CHOLECALCIFEROL Inactive PREVACID 30 MG CPDR Take 1 tablet by mouth daily-PRN PREVACID 30 MG CPDR 389100 LANSOPRAZOLE Inactive DOXYCYCLINE HYCLATE 100 MG TAB 1 tab twice a day for 14 days 2013 DOXYCYCLINE HYCLATE 100 MG TAB 3494914 DOXYCYCLINE HYCLATE Inactive XOPENEX 1.25 MG/3ML NEBU 1 neb every 4 hours if needed for cough/congestion XOPENEX 1.25 MG/3ML [facility] 529512 LEVALBUTEROL HCL Inactive CYCLOBENZAPRINE HCL 10 MG TABS 1/2 - 1 tab by mouth three times daily if needed for spasms/pain CYCLOBENZAPRINE HCL 10 MG TABS 259909 CYCLOBENZAPRINE HCL Inactive ALBUTEROL SULFATE 0.083 % NEBU SOLN one vial per nebulizer every 4-6 hours as needed ALBUTEROL SULFATE 0.083 % NEBU SOLN 717749 ALBUTEROL SULFATE Inactive CEFTIN 500 MG TAB 1 twice a day CEFTIN 500 MG TAB 964943 CEFUROXIME AXETIL Inactive ZOFRAN ODT 4 MG TBDP 1 pill dissolved by mouth every 4 hours if needed for nausea ZOFRAN ODT 4 MG TBDP 189560 ONDANSETRON Inactive ADULT ASPIRIN EC LOW STRENGTH 81 MG TBEC Take 1 tablet by mouth daily 2014 ADULT ASPIRIN EC LOW STRENGTH 81 MG TBEC 007283 ASPIRIN Inactive CALCIUM 600+D PLUS MINERALS 600-400 [...] or an apple NIACIN 500 MG TABS 009019 NIACIN Inactive NIASPAN 500 MG ORAL CR-TABS 1 pill nightly x 1 week, then 2 pills nightly x 1 week, then 3 pills nightly x 1 week, then 4 pills nightly NIASPAN 500 MG ORAL CR-TABS NIACIN (ANTIHYPERLIPIDEMIC) Inactive OXYCODONE HCL 5 MG ORAL CAPS 1 TAB PO Q HS OXYCODONE HCL 5 MG ORAL CAPS 1563042 OXYCODONE HCL Inactive FLUTICASONE PROPIONATE 50 MCG/ACT SUSP 1 to 2 sprays each nostril daily 04/21 FLUTICASONE PROPIONATE 50 MCG/ACT SUSP 4734544 FLUTICASONE PROPIONATE Inactive POLYTRIM 48728-8.1 UNIT/ML-% SOLN 1 gtt to affected eye q3h x 7 days POLYTRIM 61510-3.1 UNIT/ML-% SOLN 133019 POLYMYXIN B- TRIMETHOPRIM Inactive CHERATUSSIN AC 100-10 MG/5ML SYRP 1 tsp by mouth every 4 hours as needed for cough CHERATUSSIN AC 100-10 MG/5ML SYRP 088183 GUAIFENESIN-CODEINE Inactive LEVOTHYROXINE SODIUM 75 MCG TABS Take 1 tab daily LEVOTHYROXINE SODIUM 75 MCG TABS 197894 LEVOTHYROXINE SODIUM Inactive CLARITIN 10 MG TAB 1 tablet by mouth daily as needed for allergies CLARITIN 10 MG TAB 445214 LORATADINE Inactive FISH OIL 1000 MG CAPS 3 pills daily FISH OIL 1000 MG CAPS OMEGA-3 FATTY ACIDS Inactive ONDANSETRON 4 MG TBDP 1 q4h PRN nausea ONDANSETRON 4 MG TBDP 110948 ONDANSETRON Inactive ADVAIR DISKUS 250-50 MCG/DOSE AEPB 1 puff BID ADVAIR DISKUS 250-50 MCG/DOSE AEPB FLUTICASONE-SALMETEROL Inactive TRAMADOL HCL 50 MG TABS 1 tab po every 6 hrs prn pain TRAMADOL HCL 50 MG TABS 101529 TRAMADOL HCL Inactive TRIAMCINOLONE ACETONIDE 0.1 % CREA apply bid sparingly to rash TRIAMCINOLONE ACETONIDE 0.1 % CREA 2763581 TRIAMCINOLONE ACETONIDE Inactive PREDNISONE 20 MG TAB 1 tab twice daily for 3 day, then one daily for three days PREDNISONE 20 MG TAB 781810 PREDNISONE Inactive IBUPROFEN 600 MG TAB 1 tablet by mouth every 6 hours for 7 days, then 1 tablet every 6 hours as needed. Take with food IBUPROFEN 600 MG TAB 528024 IBUPROFEN Inactive BACTRIM DS 800-160 MG TAB 1 tab by mouth twice daily BACTRIM DS 800-160 MG TAB 19820606 TRIMETHOPRIM-SULFAMETHOXAZOLE Inactive AZITHROMYCIN 250 MG TABS 2 po qd x 1 day, then 1 po qd x 4 days AZITHROMYCIN 250 MG TABS 320770 AZITHROMYCIN Inactive CEFDINIR 300 MG CAPS by mouth twice a day CEFDINIR 300 MG CAPS 979925 CEFDINIR Inactive AZITHROMYCIN 250 MG TABS 2 pills on day 1, then 1 pill daily x 4 days AZITHROMYCIN 250 MG TABS 361519 AZITHROMYCIN Inactive DOXYCYCLINE HYCLATE 100 MG CAP 1 cap by mouth twice daily DOXYCYCLINE HYCLATE 100 MG CAP 0720877 DOXYCYCLINE HYCLATE Inactive FUROSEMIDE 20 MG TABS 1 pill by mouth daily, for edema FUROSEMIDE 20 MG TABS 571208 FUROSEMIDE Inactive AZITHROMYCIN 250 MG TABS 2 po qd x 1 day, then 1 po qd x 4 days AZITHROMYCIN 250 MG TABS 279623 AZITHROMYCIN Inactive CEFTIN 500 MG TAB 1 twice a day CEFTIN 500 MG TAB 526736 CEFUROXIME AXETIL Inactive CEFDINIR 300 MG CAPS [...] for 2 days PREDNISONE 20 MG TAB 553719 PREDNISONE Inactive PREDNISONE 20 MG TAB take 3 tabs daily for 3 days, 2 tabs daily for 3 days, 1 tab daily for 3 days, 1/2 tab daily for 3 days PREDNISONE 20 MG TAB 499126 PREDNISONE Inactive BACTRIM DS 800-160 MG TAB 1 tab by mouth twice daily BACTRIM DS 800-160 MG TAB 629222 TRIMETHOPRIM-SULFAMETHOXAZOLE Inactive Immunizations Vaccine Administration Date Value Standard Description Seasonal influenza vaccine, injectable, containing preservative, for > 3 years old (Afluria, FluLaval, Fluzone, Fluvirin, Fluarix, Agriflu(>=18 yo)) Fluzone (>3 yrs.) [IFI206] Influenza, seasonal, injectable influenza immunization (Flu Vax) has been administered Influenza - Unspecified Formulation [CVX88] influenza virus vaccine, unspecified formulation Seasonal influenza vaccine, injectable, containing preservative, for > 3 years old (Afluria, FluLaval, Fluzone, Fluvirin, Fluarix, Agriflu(>=18 yo)) Fluzone (>3 yrs.) [SZF483] Influenza, seasonal, injectable pneumococcal immunization administered Pneumovax 23 [CVX33] pneumococcal polysaccharide vaccine, 23 valent dT (Diphtheria and Tetanus) booster given given Td(adult) unspecified formulation Boostrix (Tetanus toxoid, reduced diphtheria toxoid and acellular pertussis vaccine, adsorbed), booster Boostrix [UDU259] tetanus toxoid, reduced diphtheria toxoid, and acellular [...] PANEL - Chemistry cholesterol, serum 166 mg/dL [phone]/12/06 triglyceride, serum, fasting 86 mg/dL 30-200 HDL [...] negative Encounters Code Encounter Date Provider Facility CPT-28202 Level 3 Est. Patient 10:28:15 CDT Tisha Lambert [facility] CPT-38068 Level 3 Est. Patient 14:50:29 CDT Gab Padron MD [facility] CPT-76412 Level 3 Est. Patient 14:46:09 CDT Tisha Lambert [facility] CPT-53151 Level 4 New Patient 16:13:15 CDT Todd Callaway MD [facility] CPT-43857 Level 4 Est. Patient 13:18:33 CDT Gab Padron MD [facility] CPT-74042 Level 3 Est. Patient 15:20:50 CDT Jared Og MD [facility] CPT-49924 Level 3 Est. Patient 17:43:55 SPECIAL EFFECTS DESIGNER Gab Padron MD [facility] CPT-81538 Level 3 Est. Patient 17:07:49 SPECIAL EFFECTS DESIGNER Jared Og MD [facility] CPT-56490 Level 4 Est. Patient 19:55:18 SPECIAL EFFECTS DESIGNER Jared Og MD [facility] CPT-64993 Level 3 Est. Patient 20:13:34 SPECIAL EFFECTS DESIGNER Jared Og MD [facility] CPT-89829 Level 4 Est. Patient 16:31:27 CDT Gab Padron MD [facility] CPT-20384 Level 2 Est. Patient 12:23:38 CDT Jared Og MD [facility] CPT-00969 Level 3 Est. Patient 11:01:51 CDT Gab Padron MD [facility] CPT-26718 Level 3 Est. Patient 15:27:02 CDT Jared Og MD [facility] CPT-20826 Level 4 Est. Patient 09:25:27 CDT Gab Padron MD [facility] CPT-47983 Level 3 Est. Patient 10:29:41 CDT Rodrigo Sarah [facility] CPT-02454 Level 4 Est. Patient 17:51:05 CDT Gab Padron MD [facility] CPT-45762 Level 3 Est. Patient 14:18:08 CDT Gab Padron MD [facility] CPT-21570 Level 4 Est. Patient 10:18:54 CDT Gab Padron MD [facility] CPT-09493 Level 3 Est. Patient 11:30:07 CDT Rodrigo Sarah [facility] CPT-63241 Level 4 Est. Patient 21:02:30 SPECIAL EFFECTS DESIGNER Gab Padron MD [facility] CPT-04074 Level 3 Est. Patient 11:02:19 SPECIAL EFFECTS DESIGNER Gab Padron MD [facility] CPT-90517 Level 4 Est. Patient 22:24:31 SPECIAL EFFECTS DESIGNER Gab Padron MD [facility]-44782 Level 3 Est. Patient 18:33:46 SPECIAL EFFECTS DESIGNER Gab Padron MD [facility]-88736 Level 3 Est. Patient 16:19:11 CDT Yolande Lindsay MD [facility]-74188 Level 3 Est. Patient 18:59:14 CDT Yolande Lindsay MD [facility]-24098 Level 4 Est. Patient 21:29:26 CDT Yolande Lindsay MD [facility]-71244 Level 3 Est. Patient 07:37:45 CDT Yolande Lindsay MD [facility]-74946 Level 3 Est. Patient 17:03:46 CDT Yolande Lindsay MD [facility]-79459 Level 4 Est. Patient 20:02:13 SPECIAL EFFECTS DESIGNER Yolande Lindsay MD [facility]-16826 Level 3 Est. Patient 16:02:07 SPECIAL EFFECTS DESIGNER Alexis Ordaz MD [facility]-67325 Level 3 Est. Patient 12:41:24 SPECIAL EFFECTS DESIGNER Yolande Lindsay MD [facility]-76345 Level 3 Est. Patient 15:41:20 SPECIAL EFFECTS DESIGNER Yolande Lindsay MD [facility]-85412 Level 3 Est. Patient 13:20:02 SPECIAL EFFECTS DESIGNER Yolande Lindsay MD [facility]-50830 Level 3 Est. Patient 15:00:38 CDT Jared Og MD [facility]-95564 Level 3 Est. Patient 10:22:32 CDT Yolande Lindsay MD [facility]-96369 Level 3 Est. Patient 17:12:58 CDT Yolande Lindsay MD [facility]-60057 Level 4 Est. Patient 13:30:58 CDT Yolande Lindsay MD [facility] CPT-43395 Level 4 New Patient 09:02:42 CDT Jared Og MD [facility]-28400 Level 3 Est. Patient 08:19:07 CDT Yolande Lindsay MD [facility]-06648 Level 3 Est. Patient 12:00:13 SPECIAL EFFECTS DESIGNER Gab Padron MD [facility]-17444 Level 3 Est. Patient 16:15:23 SPECIAL EFFECTS DESIGNER Yolande Lindsay MD [facility]-08794 Level 2 Est. Patient 19:47:15 CDT Yolande Lindsay MD [facility]-70697 Level 3 Est. Patient 21:38:31 CDT Yolande Lindsay MD [facility]-65065 Level 3 Est. Patient 10:25:12 CDT Adiel PERAZA [facility] CPT-94928 Level 4 Est. Patient 10:51:58 CDT Yolande Lindsay MD [facility]-25863 Level 3 Est. Patient 14:04:55 SPECIAL EFFECTS DESIGNER Rodrigo Sarah [facility]-19246 Level 3 Est. Patient 10:46:35 SPECIAL EFFECTS DESIGNER Rodrigo Sarah [facility]-08841 Level 3 Est. Patient 14:24:37 SPECIAL EFFECTS DESIGNER Yolande Lindsay MD [facility]-86098 Level 3 Est. Patient 17:41:58 SPECIAL EFFECTS DESIGNER Yolande Lindsay MD [facility]-65333 Level 2 Est. Patient 22:01:41 SPECIAL EFFECTS DESIGNER Rodrigo Sarah [facility]-42251 Level 2 Est. Patient 22:01:11 SPECIAL EFFECTS DESIGNER Rodrigo Sarah [facility] CPT-31799 Level 3 Est. Patient 10:12:29 SPECIAL EFFECTS DESIGNER Rodrigo Sarah [facility] CPT-52025 Level 3 Est. Patient 11:05:44 CDT Alexis Ordaz MD [facility] CPT-11115 Level 3 Est. Patient 14:57:20 CDT Yolande Lindsay MD [facility] CPT-18531 Level 3 Est. Patient 14:40:57 CDT Yolande Lindsay MD [facility] CPT-31363 Level 3 Est. Patient 20:55:40 CDT Yolande Lindsay MD [facility] CPT-03068 Level 3 Est. Patient 12:42:38 SPECIAL EFFECTS DESIGNER Yolande Lindsay MD [facility] CPT-50396 Level 3 Est. Patient 11:54:49 SPECIAL EFFECTS DESIGNER Des Hines MD [facility] CPT-81114 Level 3 Est. Patient 17:06:38 CDT Dewayne PERAZA [facility] Procedures Code Procedure Name Date Entry Date Standard Description CPT-J2930 Solu Medrol 125 mg (Methyl Prednisolone Sodium Succinate) 13:19:02 CDT CPT-43683 Abx/Therapy Injection 13:19:02 CDT CPT-J2930 Solu Medrol 125 mg (Methyl Prednisolone Sodium Succinate) 13:05:03 CDT CPT-78708 Hip, complete, 2-3 views - XRAY USE ONLY 17:19:04 SPECIAL EFFECTS DESIGNER CPT-64660 Venipuncture Draw Fee 08:37:59 SPECIAL EFFECTS DESIGNER CPT-31269 Liver Profile - LAB USE ONLY 08:37:59 SPECIAL EFFECTS DESIGNER CPT-82121 Lipid - LAB USE ONLY 08:37:58 SPECIAL EFFECTS DESIGNER CPT-82465 First Vx - Ix admin via ID IM or jet injects without counseling by physician 11:52:31 CDT CPT-09138 Fluzone Preservative Free Intramuscular Suspension 11:52 :31 CDT CPT-14242 Foot, left, comp min 3V - XRAY USE ONLY 09:24:54 CDT CPT-83703 Abd single AP View - XRAY USE ONLY 11:16:17 CDT CPT-44211 T spine AP/ Lat - XRAY USE ONLY 09:34:21 CDT CPT-90955 Chest 2V Frontal and Lat - XRAY USE ONLY 10:48:51 CDT CPT-18807 LS spine comp w obliq 13:28:00 SPECIAL EFFECTS DESIGNER CPT-J1040 Depo Medrol 80 mg (Methyl Prednisolone Acetate) 10:51: 28 SPECIAL EFFECTS DESIGNER CPT-J1100 Decadron 8mg (Dexamethasone) 10:51:28 SPECIAL EFFECTS DESIGNER CPT-63819 Abx/Therapy Injection 10:51:28 SPECIAL EFFECTS DESIGNER CPT-J1100 Decadron 8mg (Dexamethasone) 21:02:30 SPECIAL EFFECTS DESIGNER CPT-J1040 Depo Medrol 80 mg (Methyl Prednisolone Acetate) 21:02: 30 SPECIAL EFFECTS DESIGNER [id number] Event Monitor - MC Transmission 09:12:32 CDT 08/06 [id number] Event Monitor - MC review and interp 09:12:32 CDT [id number] Event Monitor - MC recording 09:12:32 CDT CPT-86613 EKG Trac and Interp 16:50:22 CDT CPT-J1030 Depo Medrol 40 mg (Methyl Prednisolone Acetate) 17:05: 54 CDT CPT-J1100 Decadron 4mg (Dexamethasone) 17:05:54 CDT CPT-30458 Abx/Therapy Injection 17:05:54 CDT CPT-J1100 Decadron 4mg (Dexamethasone) 16:55:28 CDT CPT-J1030 Depo Medrol 40 mg (Methyl Prednisolone Acetate) 16:55: 28 CDT CPT-73246 Ankle Complete - Min 3V 15:58:50 CDT CPT-04207 Knee 3V 15:58:50 CDT CPT-03523 Hip comp min 2V 15:58:50 CDT CPT-J2270 Morphine Sulfate 10 mg 14:25:44 [employer] CPT-J2550 Phenergan 12.5 mg (Promethazine) 14:25:44 [employer] CPT-38749 Abx/Therapy Injection 14:25:44 [employer] CPT-J2550 Phenergan 12.5 mg (Promethazine) 14:08:03 [employer] CPT-J2270 Morphine Sulfate 10 mg 14:08:03 [employer] CPT-57916 Bladder Scan 15:00:38 CDT CPT-TCMM Transitional Care Mgmt-Moderate 09:52:22 CDT CPT-J1030 Depo Medrol 40 mg (Methyl Prednisolone Acetate) 10:55: 18 CDT CPT-J1100 Decadron 4mg (Dexamethasone) 10:55:18 CDT CPT-25702 Abx/Therapy Injection 10:55:18 CDT CPT-J1030 Depo Medrol 40 mg (Methyl Prednisolone Acetate) 10:22: 32 CDT CPT-J1100 Decadron 4mg (Dexamethasone) 10:22:32 CDT CPT-85471 Postop F/U Visit 14:37:13 CDT CPT-04381 Ankle Complete - Min 3V 17:11:58 CDT CPT-86913 Foot comp min 3V 17:11:58 CDT CPT-43431 Bladder Scan 09:56:58 CDT CPT-76625 Postop F/U Visit 09:56:58 CDT CPT-57025 Cystoscopy 09:02:42 CDT CPT-79313 Bladder Scan 09:02:42 CDT CPT-08449 Abd single AP View 16:00:35 CDT CPT-41637 Administration single or combination vaccine inc oral 10 :15:43 CDT CPT-24335 Influenza split virus > age 3 10:15:43 CDT CPT-68951 Nail Avulsion 09:24:57 CDT CPT-OV Office Visit 11:15:41 CDT CPT-72088 Abx/Therapy Injection 10:51:30 CDT CPT-J3301 Kenalog 40 mg (Triamcinolone Acetonide) 10:25:12 CDT CPT-J1100 Decadron 4mg (Dexamethasone) 10:25:12 CDT CPT-13632 Anoscopy diagnostic 10:36:12 CDT CPT-OV Office Visit 15:34:31 CDT CPT-34403 Abx/Therapy Injection 08:21:15 [employer] CPT-J1885 Toradol 60 mg (Ketorolac) 10:46:35 [employer] CPT-OV Office Visit 19:51:16 [employer] CPT-25083 Spec Collection and Handling Fee 14:34:18 [employer] CPT-PV Prev. Care Visit 14:19:18 [employer] CPT-17028 Postop F/U Visit 14:47:51 [employer] CPT-70464 Postop F/U Visit 15:15:14 [employer] CPT-86272 Postop F/U Visit 14:41:43 CDT CPT-03991 Postop F/U Visit 15:47:46 CDT CPT-OV Office Visit 15:27:23 CDT CPT-OV Office Visit 17:20:34 CDT CPT-38397 Abx/Therapy Injection 15:05:57 CDT CPT-J1100 Decadron 8mg (Dexamethasone) 14:44:57 CDT CPT-J1040 Depo Medrol 80 mg (Methyl Prednisolone Acetate) 14:44: 57 CDT CPT-JTINJ Joint Injection 10:17:37 CDT CPT-25332 Administration 2+ single or combination vaccines inc oral 13:01:46 [employer] CPT-17960 Administration single or combination vaccine inc oral 13 :01:46 [employer] CPT-10692 Pneumovax 13:01:46 [employer] CPT-07286 Influenza split virus > age 3 13:01:46 [employer] CPT-57252 Administration single or combination vaccine inc oral 08 :56:49 CDT CPT-68285 Tdap 08:56:49 CDT
--- OUTSIDE RECORDS SUMMARY | 2017-03-22 02:29 | XMS REPORT | Clinical Summary ---
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 Jillina Frazellilian CAPACITY PLANNING MANAGER 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 Anemia 285.9 Active Gab Padron MD Anemia, unspecified Conjunctivitis 372.30 Active Jillnacho Sarah APRN Conjunctivitis, unspecified Sinusitis 473.9 Active Silvestrellina Frazell CAPACITY PLANNING MANAGER Unspecified sinusitis (chronic) FOOT PAIN, [...] 4 hours as needed for cough GUAIFENESIN-CODEINE 55041935327 No Longer Active Gab Padron MD Active POLYTRIM 20057-0.1 UNIT/ML-% SOLN 1 gtt to affected eye q3h x 7 days POLYMYXIN B-TRIMETHOPRIM 25038060336 No Longer Active Gab Padron MD Active FLUTICASONE PROPIONATE 50 MCG/ACT SUSP 1 to 2 sprays each nostril daily 04/21 FLUTICASONE PROPIONATE 97232928596 No Longer Active Gab Padron MD Active TRILEPTAL 600 MG TABS Take one 1 tablet in Am and 1 tablet at night OXCARBAZEPINE 18192199304 Active Gab Padron MD Active CEFDINIR 300 MG CAPS 1 po BID x 10 days CEFDINIR 84304054807 No Longer Active Rodrigo Sarah APRN Active CEFTIN 500 MG TAB 1 twice a day CEFUROXIME AXETIL 84655087530 No Longer Active Gab Padron MD Active AZITHROMYCIN 250 MG TABS 2 po qd x 1 day, then 1 po qd x 4 days AZITHROMYCIN 67325475409 No Longer Active Rodrigo Sarah APRN Active CLARITIN 10 MG TAB 1 tablet by mouth daily as needed for allergies LORATADINE 01612669547 Active Rodrigo Sarah APRN Active OXYCODONE HCL 5 MG ORAL CAPS 1 TAB PO Q HS OXYCODONE HCL 61451069837 No Longer Active Rodrigo Sarah APRN Active NIASPAN 500 MG ORAL CR-TABS 1 pill nightly x 1 week, then 2 pills nightly x 1 week, then 3 pills nightly x 1 week, then 4 pills nightly NIACIN (ANTIHYPERLIPIDEMIC) 81737118942 No Longer Active Rodrigo Sarah APRN Active NIACIN 500 MG TABS 1 pill by mouth nightly x 1 week, then 2 pills x 1 week, then 3 pills x 1 week, then 4 pills nightly - take after evening meal, with applesauce or an apple NIACIN 15724960595 No Longer Active Yolande Lindsay MD PhD Active FISH OIL 1000 MG CAPS 3 pills daily OMEGA-3 FATTY ACIDS 81809005621 Active Yolande Lindsay MD PhD Active TRIAMCINOLONE ACETONIDE 0.1 % CREA apply bid sparingly to rash TRIAMCINOLONE ACETONIDE 24082394757 Active Yolande Lindsay MD PhD Active FUROSEMIDE 20 MG TAB 1 tablet by mouth daily FUROSEMIDE 87442589766 Active Yolande Lindsay MD PhD Active LISINOPRIL 20 MG ORAL TABS 1 tab by mouth daily LISINOPRIL 98721582835 Active Gab Padron MD Active FUROSEMIDE 20 MG TABS 1 pill by mouth daily, for edema FUROSEMIDE 52557975343 No Longer Active Yolande Lindsay MD PhD Active ATORVASTATIN CALCIUM 10 MG TABS 1 pill by mouth daily, for cholesterol 09/06 ATORVASTATIN CALCIUM 74485644737 Active Yolande Lindsay MD PhD Active CALCIUM 600+D PLUS MINERALS 600-400 MG-UNIT ORAL CHEW 1 tab by mouth daily CALCIUM CARBONATE-VIT D-MIN 06805524021 No Longer Active Yolande Lindsay MD PhD Active CYCLOBENZAPRINE HCL 10 MG TABS 1 tablet by mouth three times daily as needed for muscle spasm/pain CYCLOBENZAPRINE HCL 87026341209 Active Yolande Lindsay MD PhD Active ONDANSETRON 4 MG TBDP 1 q4h PRN nausea ONDANSETRON 62689735822 Active Yolande Lindsay MD PhD Active ADULT ASPIRIN EC LOW STRENGTH 81 MG TBEC Take 1 tablet by mouth daily 2014 ASPIRIN 43612921766 No Longer Active Yolande Lindsay MD PhD Active ZOFRAN ODT 4 MG TBDP 1 pill dissolved by mouth every 4 hours if needed for nausea ONDANSETRON 42794557385 No Longer Active Yolande Lindsay MD PhD Active CEFTIN 500 MG TAB 1 twice a day CEFUROXIME AXETIL 37263761890 No Longer Active Yolande Lindsay MD PhD Active ALBUTEROL SULFATE 0.083 % NEBU SOLN one vial per nebulizer every 4-6 hours as needed ALBUTEROL SULFATE 11724253526 No Longer Active Alexis Ordaz MD Active DOXYCYCLINE HYCLATE 100 MG CAP 1 cap by mouth twice daily DOXYCYCLINE HYCLATE 35986075073 No Longer Active Yolande Lindsay MD PhD Active CYCLOBENZAPRINE HCL 10 MG TABS 1/2 - 1 tab by mouth three times daily if needed for spasms/pain CYCLOBENZAPRINE HCL 58211039651 No Longer Active Yolande Lindsay MD PhD Active AZITHROMYCIN 250 MG TABS 2 pills on day 1, then 1 pill daily x 4 days AZITHROMYCIN 49595663478 No Longer Active Yolande Lindsay MD PhD Active XOPENEX 1.25 MG/3ML NEBU 1 neb every 4 hours if needed for cough/congestion LEVALBUTEROL HCL 02295933879 No Longer Active Yolande Lindsay MD PhD Active DOXYCYCLINE HYCLATE 100 MG TAB 1 tab twice a day for 14 days 2013 DOXYCYCLINE HYCLATE 50833220843 No Longer Active Yolande Lindsay MD PhD Active LEVOTHYROXINE SODIUM 75 MCG TABS Take 1 tab daily LEVOTHYROXINE SODIUM 51808574526 Active Gab Padron MD Active PREVACID 30 MG CPDR Take 1 tablet by mouth daily-PRN LANSOPRAZOLE 07484561924 No Longer Active Yolande Lindsay MD PhD Active PA VITAMIN D-3 2000 UNIT CAPS 1 CAP PO DAILY CHOLECALCIFEROL 92082594884 No Longer Active Yolande Lindsay MD PhD Active CEFDINIR 300 MG CAPS by mouth twice a day CEFDINIR 85735177651 No Longer Active Gab Padron MD Active TOPAMAX 50 MG TABS 1 PO twice daily TOPIRAMATE 46359046884 Active Yolande Lindsay MD PhD Active AZITHROMYCIN 250 MG TABS 2 po qd x 1 day, then 1 po qd x 4 days AZITHROMYCIN 98533115280 No Longer Active Yolande Lindsay MD PhD Active DICLOFENAC SODIUM 75 MG TBEC 1 tablet by q 12 hours PRN headaches DICLOFENAC SODIUM 68901669769 No Longer Active Yolande Lindsay MD PhD Active FLONASE 50 MCG/ACT SUSP 1 spray each nostril am and hs FLUTICASONE PROPIONATE 80643619091 No Longer Active Todd Callaway MD Active ANUSOL-HC 25 MG SUPPOSITORY 1 rectally twice a day as needed for hemorrhoids HYDROCORTISONE JAYDEN (RECTAL) 45851733565 No Longer Active Yolande Lindsay MD PhD Active ANUSOL-HC 25 MG SUPPOSITORY 1 suppository rectally each evening as needed for anal fissure HYDROCORTISONE JAYDEN (RECTAL) 91350308709 No Longer Active LONNIE Iglesias Active VALIUM 5 MG TAB 1 po 30 minutes prior to your MRI DIAZEPAM 65252461447 No Longer Active Bozena Jared LONNIE Active METHOCARBAMOL 750 MG TABS 1 PO QID PRN METHOCARBAMOL 39312068799 No Longer Active Daphneila Wetzel APRN Active NITROSTAT 0.4 MG SUBL as directed NITROGLYCERIN 56998391422 No Longer Active Rodrigo Sarah CAPACITY PLANNING MANAGER Active ROBAXIN-750 750 MG TABS 2 four times a day for 3 days as needed for muscle spasm, then 1 four times a day as needed METHOCARBAMOL 16979984922 No Longer Active Rodrigo Sarah APRN Active HYDROCODONE-ACETAMINOPHEN 5-325 MG TABS 1 q 4-6 hrs prn HYDROCODONE-ACETAMINOPHEN 33677508010 No Longer Active Silvestrellina Tyrel ZAPATAN Active VERAPAMIL HCL CR 180 MG CR-TABS TAKE 1 TAB DAILY VERAPAMIL HCL 68903780918 No Longer Active Yolande Lindsay MD PhD Active BACTRIM DS 800-160 MG TAB 1 tab by mouth twice daily TRIMETHOPRIM-SULFAMETHOXAZOLE 72995071061 No Longer Active Yolande Lindsay MD PhD Active NEXIUM 40 MG PACK 1 by mouth daily ESOMEPRAZOLE MAGNESIUM 46855102122 No Longer Active Des Hines MD Active EPIPEN 2-CHARLETTE 0.3 MG/0.3ML OMARI as need for allergic reaction EPINEPHRINE 60436018410 Active Yolande Lindsay MD PhD Active NEXIUM 40 MG CPDR 1 PO Q D DAY ESOMEPRAZOLE MAGNESIUM 26149835537 No Longer Active Sadia Perry RN Active NEXIUM 40 MG PACK 1 by mouth daily NEXIUM 40 MG PACK ESOMEPRAZOLE MAGNESIUM Inactive VERAPAMIL HCL CR 180 MG CR-TABS TAKE 1 TAB DAILY VERAPAMIL HCL CR 180 MG CR-TABS VERAPAMIL HCL Inactive HYDROCODONE-ACETAMINOPHEN 5-325 MG TABS 1 q 4-6 hrs prn HYDROCODONE-ACETAMINOPHEN 5-325 MG TABS 728524 HYDROCODONE-ACETAMINOPHEN Inactive ROBAXIN-750 750 MG TABS 2 four times a day for 3 days as needed for muscle spasm, then 1 four times a day as needed ROBAXIN-750 750 MG TABS 092590 METHOCARBAMOL Inactive NITROSTAT 0.4 MG SUBL as directed NITROSTAT 0.4 MG SUBL NITROGLYCERIN Inactive METHOCARBAMOL 750 MG TABS 1 PO QID PRN METHOCARBAMOL 750 MG TABS 728554 METHOCARBAMOL Inactive VALIUM 5 MG TAB 1 po 30 minutes prior to your MRI VALIUM 5 MG TAB 043723 DIAZEPAM Inactive ANUSOL-HC 25 MG SUPPOSITORY 1 suppository rectally each evening as needed for anal fissure ANUSOL-HC 25 MG SUPPOSITORY 5024916 HYDROCORTISONE JAYDEN (RECTAL) Inactive ANUSOL-HC 25 MG SUPPOSITORY 1 rectally twice a day as needed for hemorrhoids ANUSOL-HC 25 MG SUPPOSITORY 3649782 HYDROCORTISONE JAYDEN (RECTAL) Inactive FLONASE 50 MCG/ACT SUSP 1 spray each nostril am and hs FLONASE 50 MCG/ACT SUSP FLUTICASONE PROPIONATE Inactive DICLOFENAC SODIUM 75 MG TBEC 1 tablet by q 12 hours PRN headaches DICLOFENAC SODIUM 75 MG TBEC 320644 DICLOFENAC SODIUM Inactive PA VITAMIN D-3 2000 UNIT CAPS 1 CAP PO DAILY PA VITAMIN D-3 2000 UNIT CAPS CHOLECALCIFEROL Inactive PREVACID 30 MG CPDR Take 1 tablet by mouth daily-PRN PREVACID 30 MG CPDR 205596 LANSOPRAZOLE Inactive DOXYCYCLINE HYCLATE 100 MG TAB 1 tab twice a day for 14 days 2013 DOXYCYCLINE HYCLATE 100 MG TAB 5167489 DOXYCYCLINE HYCLATE Inactive XOPENEX 1.25 MG/3ML NEBU 1 neb every 4 hours if needed for cough/congestion XOPENEX 1.25 MG/3ML [facility] 248954 LEVALBUTEROL HCL Inactive CYCLOBENZAPRINE HCL 10 MG TABS 1/2 - 1 tab by mouth three times daily if needed for spasms/pain CYCLOBENZAPRINE HCL 10 MG TABS 913957 CYCLOBENZAPRINE HCL Inactive ALBUTEROL SULFATE 0.083 % NEBU SOLN one vial per nebulizer every 4-6 hours as needed ALBUTEROL SULFATE 0.083 % NEB SOLN 435523 ALBUTEROL SULFATE Inactive CEFTIN 500 MG TAB 1 twice a day CEFTIN 500 MG TAB 269015 CEFUROXIME AXETIL Inactive ZOFRAN ODT 4 MG TBDP 1 pill dissolved by mouth every 4 hours if needed for nausea ZOFRAN ODT 4 MG TBDP 584031 ONDANSETRON Inactive ADULT ASPIRIN EC LOW STRENGTH 81 MG TBEC Take 1 tablet by mouth daily 2014 ADULT ASPIRIN EC LOW STRENGTH 81 MG TBEC 522932 ASPIRIN Inactive CALCIUM 600+D PLUS MINERALS 600-400 [...] or an apple NIACIN 500 MG TABS 587400 NIACIN Inactive NIASPAN 500 MG ORAL CR-TABS 1 pill nightly x 1 week, then 2 pills nightly x 1 week, then 3 pills nightly x 1 week, then 4 pills nightly NIASPAN 500 MG ORAL CR-TABS NIACIN (ANTIHYPERLIPIDEMIC) Inactive OXYCODONE HCL 5 MG ORAL CAPS 1 TAB PO Q HS OXYCODONE HCL 5 MG ORAL CAPS 3302021 OXYCODONE HCL Inactive FLUTICASONE PROPIONATE 50 MCG/ACT SUSP 1 to 2 sprays each nostril daily 04/21 FLUTICASONE PROPIONATE 50 MCG/ACT SUSP 805803 FLUTICASONE PROPIONATE Inactive POLYTRIM 33972-0.1 UNIT/ML-% SOLN 1 gtt to affected eye q3h x 7 days POLYTRIM 25078-4.1 UNIT/ML-% SOLN 680356 POLYMYXIN B- TRIMETHOPRIM Inactive CHERATUSSIN AC 100-10 MG/5ML SYRP 1 tsp by mouth every 4 hours as needed for cough CHERATUSSIN AC 100-10 MG/5ML SYRP 100755 GUAIFENESIN-CODEINE Inactive BACTRIM DS 800-160 MG TAB 1 tab by mouth twice daily BACTRIM DS 800-160 MG TAB 621907 TRIMETHOPRIM-SULFAMETHOXAZOLE Inactive AZITHROMYCIN 250 MG TABS 2 po qd x 1 day, then 1 po qd x 4 days AZITHROMYCIN 250 MG TABS 6733645 AZITHROMYCIN Inactive CEFDINIR 300 MG CAPS by mouth twice a day CEFDINIR 300 MG CAPS 105317 CEFDINIR Inactive AZITHROMYCIN 250 MG TABS 2 pills on day 1, then 1 pill daily x 4 days AZITHROMYCIN 250 MG TABS 4961788 AZITHROMYCIN Inactive DOXYCYCLINE HYCLATE 100 MG CAP 1 cap by mouth twice daily DOXYCYCLINE HYCLATE 100 MG CAP 1609595 DOXYCYCLINE HYCLATE Inactive FUROSEMIDE 20 MG TABS 1 pill by mouth daily, for edema FUROSEMIDE 20 MG TABS 862210 FUROSEMIDE Inactive AZITHROMYCIN 250 MG TABS 2 po qd x 1 day, then 1 po qd x 4 days AZITHROMYCIN 250 MG TABS 1937464 AZITHROMYCIN Inactive CEFTIN 500 MG TAB 1 twice a day CEFTIN 500 MG TAB 642611 CEFUROXIME AXETIL Inactive CEFDINIR 300 MG CAPS 1 po BID x 10 days CEFDINIR 300 MG CAPS 937958 CEFDINIR Inactive Immunizations Vaccine Administration Date Value Standard Description Seasonal influenza vaccine, injectable, containing preservative, for > 3 years old (Afluria, FluLaval, Fluzone, Fluvirin, Fluarix, Agriflu(>=18 yo)) Fluzone (>3 yrs.) [PIB950] Influenza, seasonal, injectable influenza immunization (Flu Vax) has been administered Influenza - Unspecified Formulation [CVX88] influenza virus vaccine, unspecified formulation pneumococcal immunization administered Pneumovax 23 [CVX33] pneumococcal polysaccharide vaccine, 23 valent Seasonal influenza vaccine, injectable, containing preservative, for > 3 years old (Afluria, FluLaval, Fluzone, Fluvirin, Fluarix, Agriflu(>=18 yo)) Fluzone (>3 yrs.) [LXH232] Influenza, seasonal, injectable dT (Diphtheria and Tetanus) booster given given Td(adult) unspecified formulation Boostrix (Tetanus toxoid, reduced diphtheria toxoid and acellular pertussis vaccine, adsorbed), booster Boostrix [FBK542] tetanus toxoid, reduced diphtheria toxoid, and acellular [...] Panel - Chemistry sodium, serum 145 mmol/L 249-539 0123/06/22 potassium, serum 3.9 mmol/L 3.5-5.2 chloride, serum 109 mmol/L 98-107 carbon dioxide, venous blood 23.4 mmol/L 21.0-32.0 blood glucose 92 mg/dL 65-110 calcium, serum 8.2 mg/dL 8.5-10.1 urea nitrogen, blood 24 mg/dL 7-18 creatinine, serum 1.30 mg/dL 0.60-1.30 Lab Report: [facility] Advanced Lipid and Inlammation Panel /86100 - Chemistry cholesterol, serum 198 mg/dL 333-305 0612/04/30 HDL cholesterol, serum 65 mg/dL > OR=46 triglyceride, serum, fasting 82 mg/dL LDL cholesterol, serum 117 mg/dL cholesterol/HDL ratio, serum 3.0 calc < OR=5.0 cholesterol, serum 148 mg/dL 575-744 0079/09/02 HDL cholesterol, serum 55 mg/dL > OR=46 [...] (L) - Chemistry sodium, serum 145 mmol/L 793-085 5162/09/02 potassium, serum 4.6 mmol/L 3.5-5.2 chloride, serum [...] 51 mg/dL 30-200 cholesterol, serum 173 mg/dL 597-718 7203/04/28 HDL cholesterol, serum 63 mg/dL 32-96 LDL [...] mg/dL Encounters Code Encounter Date Provider Facility CPT-53716 Level 4 Est. Patient 21:02:30 ELECTROCARDIOGRAPH TECHNICIAN Gab Padron MD [facility] CPT-26992 Level 3 Est. Patient 11:02:19 ELECTROCARDIOGRAPH TECHNICIAN Gab Padron MD [facility] CPT-03484 Level 4 Est. Patient 22:24:31 ELECTROCARDIOGRAPH TECHNICIAN Gab Padron MD [facility] CPT-72432 Level 3 Est. Patient 18:33:46 ELECTROCARDIOGRAPH TECHNICIAN Gab Padron MD [facility] CPT-20196 Level 3 Est. Patient 16:19:11 CDT Yolande Lindsay MD PhD [facility] CPT-79911 Level 3 Est. Patient 18:59:14 CDT Yolande Lindsay MD [facility] CPT-85769 Level 4 Est. Patient 21:29:26 CDT Yolande Lindsay MD PhD [facility] CPT-00504 Level 3 Est. Patient 07:37:45 CDT Yolande Lindsay MD [facility] CPT-39605 Level 3 Est. Patient 17:03:46 CDT Yolande Lindsay MD [facility]-03406 Level 4 Est. Patient 20:02:13 ELECTROCARDIOGRAPH TECHNICIAN Yolande Lindsay MD [facility] CPT-18616 Level 3 Est. Patient 16:02:07 ELECTROCARDIOGRAPH TECHNICIAN Alexis Ordaz MD [facility] CPT-49293 Level 3 Est. Patient 12:41:24 ELECTROCARDIOGRAPH TECHNICIAN Yolande Lindsay MD [facility]-49132 Level 3 Est. Patient 15:41:20 ELECTROCARDIOGRAPH TECHNICIAN Yolande Lindsay MD [facility]-40591 Level 3 Est. Patient 13:20:02 ELECTROCARDIOGRAPH TECHNICIAN Yolande Lindsay MD [facility] CPT-68302 Level 3 Est. Patient 15:00:38 CDT Jared Og MD [facility]-16684 Level 3 Est. Patient 10:22:32 CDT Yolande Lindsay MD [facility] CPT-49133 Level 3 Est. Patient 17:12:58 CDT Yolande Lindsay MD [facility] CPT-41197 Level 4 Est. Patient 13:30:58 CDT Yolande Lindsay MD [facility] CPT-93355 Level 4 New Patient 09:02:42 CDT Jared Og MD [facility] CPT-18378 Level 3 Est. Patient 08:19:07 CDT Yolande Lindsay MD [facility]-36473 Level 3 Est. Patient 12:00:13 ELECTROCARDIOGRAPH TECHNICIAN Gab Padron MD [facility] CPT-94233 Level 3 Est. Patient 16:15:23 ELECTROCARDIOGRAPH TECHNICIAN Yolande Lindsay MD [facility]-48337 Level 2 Est. Patient 19:47:15 CDT Yolande Lindsay MD [facility]-92519 Level 3 Est. Patient 21:38:31 CDT Yolande Lindsay MD [facility]-73805 Level 3 Est. Patient 10:25:12 CDT Adiel PERAZA [facility]-77471 Level 4 Est. Patient 10:51:58 CDT Yolande Lindsay MD [facility]-50925 Level 3 Est. Patient 14:04:55 ELECTROCARDIOGRAPH TECHNICIAN Rodrigo Sarah [facility]-86096 Level 3 Est. Patient 10:46:35 ELECTROCARDIOGRAPH TECHNICIAN Rodrigo Sarah [facility]-34400 Level 3 Est. Patient 14:24:37 ELECTROCARDIOGRAPH TECHNICIAN Yolande Lindsay MD [facility]-00330 Level 3 Est. Patient 17:41:58 ELECTROCARDIOGRAPH TECHNICIAN Yolande Lindsay MD [facility]-86511 Level 2 Est. Patient 22:01:41 ELECTROCARDIOGRAPH TECHNICIAN Rodrigo Sarah [facility]-46456 Level 2 Est. Patient 22:01:11 ELECTROCARDIOGRAPH TECHNICIAN Rodrigo Sarah [facility]-62428 Level 3 Est. Patient 10:12:29 ELECTROCARDIOGRAPH TECHNICIAN Rodrigo Sarah [facility]-10374 Level 3 Est. Patient 11:05:44 CDT Alexis Ordaz MD [facility]-41355 Level 3 Est. Patient 14:57:20 CDT Yolande Lindsay MD [facility]-38236 Level 3 Est. Patient 14:40:57 CDT Yolande Lindsay MD [facility]-03674 Level 3 Est. Patient 20:55:40 CDT Yolande Lindsay MD PhD [facility] CPT-33415 Level 3 Est. Patient 12:42:38 ELECTROCARDIOGRAPH TECHNICIAN Yolande Lindsay MD PhD [facility] CPT-72159 Level 3 Est. Patient 11:54:49 ELECTROCARDIOGRAPH TECHNICIAN Des Hines MD [facility] CPT-19740 Level 3 Est. Patient 17:06:38 CDT Dewayne PERAZA [facility] Procedures Code Procedure Name Date Entry Date Standard Description CPT-81535 LS spine comp w obliq 13:28:00 ELECTROCARDIOGRAPH TECHNICIAN CPT-J1040 Depo Medrol 80 mg (Methyl Prednisolone Acetate) 10:51: 28 ELECTROCARDIOGRAPH TECHNICIAN CPT-J1100 Decadron 8mg (Dexamethasone) 10:51:28 ELECTROCARDIOGRAPH TECHNICIAN CPT-69295 Abx/Therapy Injection 10:51:28 ELECTROCARDIOGRAPH TECHNICIAN CPT-J1100 Decadron 8mg (Dexamethasone) 21:02:30 ELECTROCARDIOGRAPH TECHNICIAN CPT-J1040 Depo Medrol 80 mg (Methyl Prednisolone Acetate) 21:02: 30 ELECTROCARDIOGRAPH TECHNICIAN [id number] Event Monitor - MC Transmission 09:12:32 CDT 08/06 [id number] Event Monitor - MC review and interp 09:12:32 CDT [id number] Event Monitor - MC recording 09:12:32 CDT CPT-36995 EKG Trac and Interp 16:50:22 CDT CPT-J1030 Depo Medrol 40 mg (Methyl Prednisolone Acetate) 17:05: 54 CDT CPT-J1100 Decadron 4mg (Dexamethasone) 17:05:54 CDT CPT-78912 Abx/Therapy Injection 17:05:54 CDT CPT-J1100 Decadron 4mg (Dexamethasone) 16:55:28 CDT CPT-J1030 Depo Medrol 40 mg (Methyl Prednisolone Acetate) 16:55: 28 CDT CPT-20372 Ankle Complete - Min 3V 15:58:50 CDT CPT-48184 Knee 3V 15:58:50 CDT CPT-14262 Hip comp min 2V 15:58:50 CDT CPT-J2270 Morphine Sulfate 10 mg 14:25:44 ELECTROCARDIOGRAPH TECHNICIAN CPT-J2550 Phenergan 12.5 mg (Promethazine) 14:25:44 ELECTROCARDIOGRAPH TECHNICIAN CPT-16544 Abx/Therapy Injection 14:25:44 ELECTROCARDIOGRAPH TECHNICIAN CPT-J2550 Phenergan 12.5 mg (Promethazine) 14:08:03 ELECTROCARDIOGRAPH TECHNICIAN CPT-J2270 Morphine Sulfate 10 mg 14:08:03 ELECTROCARDIOGRAPH TECHNICIAN CPT-62125 Bladder Scan 15:00:38 CDT CPT-TCMM Transitional Care Mgmt-Moderate 09:52:22 CDT CPT-J1030 Depo Medrol 40 mg (Methyl Prednisolone Acetate) 10:55: 18 CDT CPT-J1100 Decadron 4mg (Dexamethasone) 10:55:18 CDT CPT-24253 Abx/Therapy Injection 10:55:18 CDT CPT-J1030 Depo Medrol 40 mg (Methyl Prednisolone Acetate) 10:22: 32 CDT CPT-J1100 Decadron 4mg (Dexamethasone) 10:22:32 CDT CPT-24457 Postop F/U Visit 14:37:13 CDT CPT-73091 Ankle Complete - Min 3V 17:11:58 CDT CPT-45205 Foot comp min 3V 17:11:58 CDT CPT-05303 Bladder Scan 09:56:58 CDT CPT-51767 Postop F/U Visit 09:56:58 CDT CPT-91479 Cystoscopy 09:02:42 CDT CPT-35892 Bladder Scan 09:02:42 CDT CPT-35101 Abd single AP View 16:00:35 CDT CPT-00559 Administration single or combination vaccine inc oral 10 :15:43 CDT CPT-19361 Influenza split virus > age 3 10:15:43 CDT CPT-13990 Nail Avulsion 09:24:57 CDT CPT-OV Office Visit 11:15:41 CDT CPT-36777 Abx/Therapy Injection 10:51:30 CDT CPT-J3301 Kenalog 40 mg (Triamcinolone Acetonide) 10:25:12 CDT CPT-J1100 Decadron 4mg (Dexamethasone) 10:25:12 CDT CPT-79720 Anoscopy diagnostic 10:36:12 CDT CPT-OV Office Visit 15:34:31 CDT CPT-02895 Abx/Therapy Injection 08:21:15 ELECTROCARDIOGRAPH TECHNICIAN CPT-J1885 Toradol 60 mg (Ketorolac) 10:46:35 ELECTROCARDIOGRAPH TECHNICIAN CPT-OV Office Visit 19:51:16 ELECTROCARDIOGRAPH TECHNICIAN CPT-11719 Spec Collection and Handling Fee 14:34:18 ELECTROCARDIOGRAPH TECHNICIAN CPT-PV Prev. Care Visit 14:19:18 ELECTROCARDIOGRAPH TECHNICIAN CPT-85860 Postop F/U Visit 14:47:51 ELECTROCARDIOGRAPH TECHNICIAN CPT-77518 Postop F/U Visit 15:15:14 ELECTROCARDIOGRAPH TECHNICIAN CPT-54128 Postop F/U Visit 14:41:43 CDT CPT-68036 Postop F/U Visit 15:47:46 CDT CPT-OV Office Visit 15:27:23 CDT CPT-OV Office Visit 17:20:34 CDT CPT-79615 Abx/Therapy Injection 15:05:57 CDT CPT-J1100 Decadron 8mg (Dexamethasone) 14:44:57 CDT CPT-J1040 Depo Medrol 80 mg (Methyl Prednisolone Acetate) 14:44: 57 CDT CPT-JTINJ Joint Injection 10:17:37 CDT CPT-61715 Administration 2+ single or combination vaccines inc oral 13:01:46 ELECTROCARDIOGRAPH TECHNICIAN CPT-47324 Administration single or combination vaccine inc oral 13 :01:46 ELECTROCARDIOGRAPH TECHNICIAN CPT-46299 Pneumovax 13:01:46 ELECTROCARDIOGRAPH TECHNICIAN CPT-51419 Influenza split virus > age 3 13:01:46 ELECTROCARDIOGRAPH TECHNICIAN CPT-24410 Administration single or combination vaccine inc oral 08 :56:49 CDT CPT-38583 Tdap 08:56:49 CDT
--- OUTSIDE RECORDS SUMMARY | 2017-03-22 02:31 | XMS REPORT ---
Author Author [facility] Medical Staff Organization [facility] Address [address] [id number] Phone [phone] Care Team Providers Care Heat Treater Head Name Role Phone EVELYN PADRON MD PP [phone] Summary purpose TRANSITION OF CARE AUTO GENERATION [...] tests and/or laboratory data RESULTS Radiology Results [id number] MYOCARDIAL SPECT MULT PACs Image DATE OF EXAM: 2015 [id number] SPECT MULTIPLE : RADIOLOGY REPORT DATE OF SERVICE: 09/05/2015 HISTORY: Chest Pain, Hypertension PHARMACOLOGICAL STRESS AND RESTING MYOCARDIAL PERFUSION STUDY (LEXISCAN CARDIOLITE STUDY) 0930 HOURS The patient initially is given 8.9 mCi of technetium 99m labeled Cardiolite intravenously. After a 61 minute delay, resting SPECT perfusion images are obtained. The patient is then given the pharmacological stress agent by the referring clinician. At maximal stress, the patient is given 33.9 mCi of technetium 99m labeled Cardiolite intravenously. After a 65 minute delay, gated stress SPECT perfusion images are obtained. The end-systolic gated stress SPECT perfusion images are essentially normal with no definite perfusion defects present. There is, therefore, no evidence for any reversible ischemia. On the gated images, the left ventricular ejection fraction is calculated at 56%, which is normal. The end-diastolic volume is 105 cc with the end-systolic volume being 47 cc. There is normal segmental left ventricular cardiac wall motion and thickening present. IMPRESSION: 1)Normal end-systolic gated stress SPECT perfusion images. There is no evidence for any reversible ischemia. 2)The gated study does have the left ventricular ejection fraction calculated at 56% which is normal. There is normal segmental left ventricular cardiac wall motion and thickening present. Kerri Gutierrez MD SDP/pb09/05/2015 15:56:00 / 09/05/2015 19:23:38 cc:Dr. Padron This document has been electronically Signed by: On: History of procedures Procedure Code Code Type Description Date Performed Performing Physician 60744 CPT-4 CARDIOVASCULAR STRESS TEST 09-05-2015 HARRY RANGEL 20100 CPT-4 HT MUSCLE IMAGE SPECT, MULT 09-05-2015 HARRY RANGEL A9500 CPT-4 TC99M SESTAMIBI 09-05-2015 HARRY RANGEL J2785 CPT-4 REGADENOSON INJECTION 09-05-2015 HARRY RANGEL Functional status Functional Status Finding Observation Time IV Site Location Right hand [id number] IV Type peripheral [id number]:24 IV Site Information discontinued 49-06-049934:10 IV Site Start Attmpt 1 times 76-00-643670:24 IV Site Acosta 20 07-57-886719:24 IV Site Appearance WNL [id number]:10 IV Site Color clear 48-82-114503:10 IV Site Patent yes [id number]:10 Dressing Type gauze 51-77-406632:10 Nursing Note Second set of scans completed. Verbal and written discharge instructions given. Patient voices understanding. Patient also given a to go bag with juice and peanut butter crackers. Chest pain is a "0". Patient ambulates from unit in good condition. :26 Vital signs Type Value Date Height 64inches :30 Weight 244LB :30 Social history No Social History or smoking status observations were recorded for this visit. ( Unknown if ever smoked.) Treatment Plan No treatment plan text is available for this visit. Hospital discharge instructions Discharge Date/Time 09/05/2015 09 Accompanied By self Dismissal Condition good Disposition on DC home Valuables yes Valuable Type billfold/purse Valuables Returned T patient DC Inst/Educ Give yes
--- OUTSIDE RECORDS SUMMARY | 2017-03-22 02:31 | XMS REPORT | Clinical Summary ---
Author Author Admin, MARGRET Organization [facility] Address Unknown Phone Unavailable Allergies, Adverse Reactions, Alerts Allergy Name Reaction Description Start Date Severity Status Provider CHLORHEXIDINE GLUCONATE tongue and gums swollen Critical Active Hoa Otto RMA NORFLEX Rash Critical Active Rodrigo Sarah EMS MANAGER TRAZODONE HCL sees things Critical Active [...] pill by mouth daily, for edema FUROSEMIDE 53367226850 Active Yolande Lindsay MD PhD Active FISH OIL 1000 MG CAPS 1 pill daily x 1 week, then 2 pills daily x 1 week, then 3 pills daily x 1 week, then 4 pills daily OMEGA-3 FATTY ACIDS 94306570526 Active Yolande Lindsay MD PhD Active NIACIN 500 MG TABS 1 pill by mouth nightly x 1 week, then 2 pills x 1 week, then 3 pills x 1 week, then 4 pills nightly - take after evening meal, with applesauce or an apple NIACIN 94871885892 Active Yolande Lindsay MD PhD Active ATORVASTATIN CALCIUM 10 MG TABS 1 pill by mouth daily, for cholesterol 09/06 ATORVASTATIN CALCIUM 63651008815 Active Yolande Lindsay MD PhD Active CALCIUM 600+D PLUS MINERALS 600-400 MG-UNIT ORAL CHEW 1 tab by mouth daily CALCIUM CARBONATE-VIT D-MIN 58879438140 No Longer Active Yolande Lindsay MD PhD Active CYCLOBENZAPRINE HCL 10 MG TABS 1 tablet by mouth three times daily as needed for muscle spasm/pain CYCLOBENZAPRINE HCL 25381460993 Active Yolande Lindsay MD PhD Active ONDANSETRON 4 MG TBDP 1 q4h PRN nausea ONDANSETRON 47955306296 Active Yolande Lindsay MD PhD Active ADULT ASPIRIN EC LOW STRENGTH 81 MG TBEC Take 1 tablet by mouth daily 2014 ASPIRIN 67997138813 No Longer Active Yolande Lindsay MD PhD Active ZOFRAN ODT 4 MG TBDP 1 pill dissolved by mouth every 4 hours if needed for nausea ONDANSETRON 80744789503 No Longer Active Yolande Lindsay MD PhD Active CEFTIN 500 MG TAB 1 twice a day CEFUROXIME AXETIL 90650905102 No Longer Active Yolande Lindsay MD PhD Active ALBUTEROL SULFATE 0.083 % NEBU SOLN one vial per nebulizer every 4-6 hours as needed ALBUTEROL SULFATE 52596296519 No Longer Active Alexis Ordaz MD Active DOXYCYCLINE HYCLATE 100 MG CAP 1 cap by mouth twice daily DOXYCYCLINE HYCLATE 57545154434 No Longer Active Yolande Lindsay MD PhD Active CYCLOBENZAPRINE HCL 10 MG TABS 1/2 - 1 tab by mouth three times daily if needed for spasms/pain CYCLOBENZAPRINE HCL 83980746237 No Longer Active Yolande Lindsay MD PhD Active TRILEPTAL 600 MG TABS Take one 1/2 tablet in Am and 1 tablet at night OXCARBAZEPINE 88194458233 Active Yolande Lindsay MD PhD Active AZITHROMYCIN 250 MG TABS 2 pills on day 1, then 1 pill daily x 4 days AZITHROMYCIN 60284472883 No Longer Active Yolande Lindsay MD PhD Active XOPENEX 1.25 MG/3ML NEBU 1 neb every 4 hours if needed for cough/congestion LEVALBUTEROL HCL 96966192715 No Longer Active Yolande Lindsay MD PhD Active DOXYCYCLINE HYCLATE 100 MG TAB 1 tab twice a day for 14 days 2013 DOXYCYCLINE HYCLATE 88586702065 No Longer Active Yolande Lindsay MD PhD Active LEVOTHYROXINE SODIUM 75 MCG TABS Take 1 tab daily LEVOTHYROXINE SODIUM 30984385247 Active Yolande Lindsay MD PhD Active PREVACID 30 MG CPDR Take 1 tablet by mouth daily-PRN LANSOPRAZOLE 13537205627 No Longer Active Yolande Lindsay MD PhD Active PA VITAMIN D-3 2000 UNIT CAPS 1 CAP PO DAILY CHOLECALCIFEROL 73920590721 No Longer Active Yolande Lindsay MD PhD Active CEFDINIR 300 MG CAPS by mouth twice a day CEFDINIR 35820054251 No Longer Active Gab Padron MD Active TOPAMAX 50 MG TABS 1 PO twice daily TOPIRAMATE 63033012632 Active Yolande Lindsay MD PhD Active AZITHROMYCIN 250 MG TABS 2 po qd x 1 day, then 1 po qd x 4 days AZITHROMYCIN 34191021370 No Longer Active Yolande Lindsay MD PhD Active DICLOFENAC SODIUM 75 MG TBEC 1 tablet by q 12 hours PRN headaches DICLOFENAC SODIUM 00083118811 No Longer Active Yolande Lindsay MD PhD Active FLONASE 50 MCG/ACT SUSP 1 spray each nostril am and hs FLUTICASONE PROPIONATE 22139198787 No Longer Active Todd Callaway MD Active ANUSOL-HC 25 MG SUPPOSITORY 1 rectally twice a day as needed for hemorrhoids HYDROCORTISONE JAYDEN (RECTAL) 84594568692 No Longer Active Yolande Lindsay MD PhD Active ANUSOL-HC 25 MG SUPPOSITORY 1 suppository rectally each evening as needed for anal fissure HYDROCORTISONE JAYDEN (RECTAL) 06959567219 No Longer Active LONNIE Iglesias Active VALIUM 5 MG TAB 1 po 30 minutes prior to your MRI DIAZEPAM 18627209499 No Longer Active LONNIE Iglesias Active METHOCARBAMOL 750 MG TABS 1 PO QID PRN METHOCARBAMOL 81949731173 No Longer Active Daphne Wetzel APRN Active NITROSTAT 0.4 MG SUBL as directed NITROGLYCERIN 35646048144 No Longer Active Rodrigo Sarah APRN Active ROBAXIN-750 750 MG TABS 2 four times a day for 3 days as needed for muscle spasm, then 1 four times a day as needed METHOCARBAMOL 46315039712 No Longer Active Rodrigo Sarah APRN Active HYDROCODONE-ACETAMINOPHEN 5-325 MG TABS 1 q 4-6 hrs prn HYDROCODONE-ACETAMINOPHEN 49880233122 No Longer Active Rodrigo Sarah APRN Active VERAPAMIL HCL CR 180 MG CR-TABS TAKE 1 TAB DAILY VERAPAMIL HCL 91939106080 No Longer Active Yolande Lindsay MD PhD Active BACTRIM DS 800-160 MG TAB 1 tab by mouth twice daily TRIMETHOPRIM-SULFAMETHOXAZOLE 55560445243 No Longer Active Yolande Lindsay MD PhD Active NEXIUM 40 MG PACK 1 by mouth daily ESOMEPRAZOLE MAGNESIUM 27427323575 No Longer Active Des Hines MD Active EPIPEN 2-CHARLETTE 0.3 MG/0.3ML OMARI as need for allergic reaction EPINEPHRINE 33611426629 Active Yolande Lindsay MD PhD Active LISINOPRIL 10 MG TABS 1 PO Q D FOR BP LISINOPRIL 25465680649 Active Yolande Lindsay MD PhD Active NEXIUM 40 MG CPDR 1 PO Q D DAY ESOMEPRAZOLE MAGNESIUM 58546425105 No Longer Active Sadia Perry RN Active NEXIUM 40 MG PACK 1 by mouth daily NEXIUM 40 MG PACK ESOMEPRAZOLE MAGNESIUM Inactive VERAPAMIL HCL CR 180 MG CR-TABS TAKE 1 TAB DAILY VERAPAMIL HCL CR 180 MG CR-TABS VERAPAMIL HCL Inactive HYDROCODONE-ACETAMINOPHEN 5-325 MG TABS 1 q 4-6 hrs prn HYDROCODONE-ACETAMINOPHEN 5-325 MG TABS 840207 HYDROCODONE-ACETAMINOPHEN Inactive ROBAXIN-750 750 MG TABS 2 four times a day for 3 days as needed for muscle spasm, then 1 four times a day as needed ROBAXIN-750 750 MG TABS 743620 METHOCARBAMOL Inactive NITROSTAT 0.4 MG SUBL as directed NITROSTAT 0.4 MG SUBL NITROGLYCERIN Inactive METHOCARBAMOL 750 MG TABS 1 PO QID PRN METHOCARBAMOL 750 MG TABS 732712 METHOCARBAMOL Inactive VALIUM 5 MG TAB 1 po 30 minutes prior to your MRI VALIUM 5 MG TAB 296216 DIAZEPAM Inactive ANUSOL-HC 25 MG SUPPOSITORY 1 suppository rectally each evening as needed for anal fissure ANUSOL-HC 25 MG SUPPOSITORY 4406762 HYDROCORTISONE JAYDEN (RECTAL) Inactive ANUSOL-HC 25 MG SUPPOSITORY 1 rectally twice a day as needed for hemorrhoids ANUSOL-HC 25 MG SUPPOSITORY 6011466 HYDROCORTISONE JAYDEN (RECTAL) Inactive FLONASE 50 MCG/ACT SUSP 1 spray each nostril am and hs FLONASE 50 MCG/ACT SUSP 255571 FLUTICASONE PROPIONATE Inactive DICLOFENAC SODIUM 75 MG TBEC 1 tablet by q 12 hours PRN headaches DICLOFENAC SODIUM 75 MG TBEC 229441 DICLOFENAC SODIUM Inactive PA VITAMIN D-3 2000 UNIT CAPS 1 CAP PO DAILY PA VITAMIN D-3 2000 UNIT CAPS CHOLECALCIFEROL Inactive PREVACID 30 MG CPDR Take 1 tablet by mouth daily-PRN PREVACID 30 MG CPDR 422335 LANSOPRAZOLE Inactive DOXYCYCLINE HYCLATE 100 MG TAB 1 tab twice a day for 14 days 2013 DOXYCYCLINE HYCLATE 100 MG TAB 637804 DOXYCYCLINE HYCLATE Inactive XOPENEX 1.25 MG/3ML NEBU 1 neb every 4 hours if needed for cough/congestion XOPENEX 1.25 MG/3ML NEBU 886305 LEVALBUTEROL HCL Inactive CYCLOBENZAPRINE HCL 10 MG TABS 1/2 - 1 tab by mouth three times daily if needed for spasms/pain CYCLOBENZAPRINE HCL 10 MG TABS 813931 CYCLOBENZAPRINE HCL Inactive ALBUTEROL SULFATE 0.083 % NEBU SOLN one vial per nebulizer every 4-6 hours as needed ALBUTEROL SULFATE 0.083 % NEBU SOLN 820064 ALBUTEROL SULFATE Inactive CEFTIN 500 MG TAB 1 twice a day CEFTIN 500 MG TAB 613095 CEFUROXIME AXETIL Inactive ZOFRAN ODT 4 MG TBDP 1 pill dissolved by mouth every 4 hours if needed for nausea ZOFRAN ODT 4 MG TBDP 605649 ONDANSETRON Inactive ADULT ASPIRIN EC LOW STRENGTH 81 MG TBEC Take 1 tablet by mouth daily 2014 ADULT ASPIRIN EC LOW STRENGTH 81 MG TBEC 699517 ASPIRIN Inactive CALCIUM 600+D PLUS MINERALS 600-400 [...] x 4 days AZITHROMYCIN 250 MG TABS 4376209 AZITHROMYCIN Inactive CEFDINIR 300 MG CAPS by mouth twice a day CEFDINIR 300 MG CAPS 158483 CEFDINIR Inactive AZITHROMYCIN 250 MG TABS 2 pills on day 1, then 1 pill daily x 4 days AZITHROMYCIN 250 MG TABS 1638389 AZITHROMYCIN Inactive DOXYCYCLINE HYCLATE 100 MG CAP 1 cap by mouth twice daily DOXYCYCLINE HYCLATE 100 MG CAP 19890510 DOXYCYCLINE HYCLATE Inactive Immunizations Vaccine Administration Date Value Standard Description Seasonal influenza vaccine, injectable, containing preservative, for > 3 years old (Afluria, FluLaval, Fluzone, Fluvirin, Fluarix, Agriflu(>=18 yo)) Fluzone (>3 yrs.) [PNZ923] Influenza, seasonal, injectable influenza immunization (Flu Vax) has been administered Influenza - Unspecified Formulation [CVX88] influenza virus vaccine, unspecified formulation Seasonal influenza vaccine, injectable, containing preservative, for > 3 years old (Afluria, FluLaval, Fluzone, Fluvirin, Fluarix, Agriflu(>=18 yo)) Fluzone (>3 yrs.) [EIG127] Influenza, seasonal, injectable pneumococcal immunization administered Pneumovax 23 [CVX33] pneumococcal polysaccharide vaccine, 23 valent dT (Diphtheria and Tetanus) booster given given Td(adult) unspecified formulation Boostrix (Tetanus toxoid, reduced diphtheria toxoid and acellular pertussis vaccine, adsorbed), booster Boostrix [VOZ867] tetanus toxoid, reduced diphtheria toxoid, and acellular [...] Cardio IQ Advanced Lipid and Inlammation Panel /15728 - Chemistry cholesterol, serum 198 mg/dL 114-025 8052/04/30 HDL cholesterol, serum 65 mg/dL > OR=46 triglyceride, serum, fasting 82 mg/dL LDL cholesterol, serum 117 mg/dL cholesterol/HDL ratio, serum 3.0 calc < OR=5.0 Lab Report: CBC W/DIFF, Basic Metabolic Panel - Chemistry sodium, serum 144 mmol/L [phone]/01/21 potassium, serum 4.2 mmol/L 3.5-5.2 chloride, serum [...] Panel - Chemistry sodium, serum 144 mmol/L [phone]/12/15 potassium, serum 5.4 mmol/L 3.5-5.2 chloride, serum [...] UA - Chemistry sodium, serum 143 mmol/L 399-674 3740/10/24 potassium, serum 3.9 mmol/L 3.5-5.2 chloride, serum [...] 51 mg/dL 30-200 cholesterol, serum 173 mg/dL 567-463 6114/04/28 HDL cholesterol, serum 63 mg/dL 32-96 LDL [...] 0-19 Encounters Code Encounter Date Provider Facility CPT-68402 Level 4 Est. Patient 21:29:26 CDT Yolande Lindsay MD [facility] CPT-44302 Level 3 Est. Patient 07:37:45 CDT Yolande Lindsay MD [facility] CPT-60923 Level 3 Est. Patient 17:03:46 CDT Yolande Lindsay MD [facility] CPT-18223 Level 4 Est. Patient 20:02:13 [employer] SAL[employer] REPRESENTATIVE Yolande Lindsay MD PhD [facility] CPT-64328 Level 3 Est. Patient 16:02:07 [employer] SAL[employer] REPRESENTATIVE Alexis Ordaz MD [facility] CPT-11676 Level 3 Est. Patient 12:41:24 [employer] SAL[employer] REPRESENTATIVE Yolande Lindsay MD PhD [facility] CPT-87424 Level 3 Est. Patient 15:41:20 [employer] SAL[employer] REPRESENTATIVE Yolande Lindsay MD [facility] CPT-66215 Level 3 Est. Patient 13:20:02 [employer] SAL[employer] REPRESENTATIVE Yolande Lindsay MD PhD [facility] CPT-84786 Level 3 Est. Patient 15:00:38 CDT Jared Og MD [facility]-89530 Level 3 Est. Patient 10:22:32 CDT Yolande Lindsay MD [facility]-43418 Level 3 Est. Patient 17:12:58 CDT Yolande Lindsay MD [facility]-70700 Level 4 Est. Patient 13:30:58 CDT Yolande Lindsay MD [facility]-40948 Level 4 New Patient 09:02:42 CDT Jared Og MD [facility]-44141 Level 3 Est. Patient 08:19:07 CDT Yolande Lindsay MD [facility]-11626 Level 3 Est. Patient 12:00:13 [employer] SALES REPRESENTATIVE Gab Padron MD [facility]-11857 Level 3 Est. Patient 16:15:23 [employer] SALES REPRESENTATIVE Yolande Lindsay MD [facility]-00230 Level 2 Est. Patient 19:47:15 CDT Yolande Lindsay MD [facility]-04899 Level 3 Est. Patient 21:38:31 CDT Yolande Lindsay MD [facility]-22054 Level 3 Est. Patient 10:25:12 CDT Adiel PERAZA [facility]-39314 Level 4 Est. Patient 10:51:58 CDT Yolande Lindsay MD [facility]-70342 Level 3 Est. Patient 14:04:55 [employer] SALES REPRESENTATIVE Rodrigo Sarah [facility]-[address]803 Level 3 Est. Patient 10:46:35 [employer] SALES REPRESENTATIVE Rodrigo Sarah [facility]-85721 Level 3 Est. Patient 14:24:37 [employer] SAL[employer] REPRESENTATIVE Yolande Lindsay MD [facility] CPT-93235 Level 3 Est. Patient 17:41:58 [employer] SAL[employer] REPRESENTATIVE Yolande Lindsay MD [facility] CPT-45700 Level 2 Est. Patient 22:01:41 [employer] SAL[employer] REPRESENTATIVE Rodrigo Sarah [facility] CPT-55895 Level 2 Est. Patient 22:01:11 [employer] SALES REPRESENTATIVE Rodrigo Sarah [facility] CPT-53724 Level 3 Est. Patient 10:12:29 [employer] SAL[employer] REPRESENTATIVE Rodrigo Sarah [facility] CPT-29335 Level 3 Est. Patient 11:05:44 CDT Alexis Ordaz MD [facility] CPT-98307 Level 3 Est. Patient 14:57:20 CDT Yolande Lindsay MD [facility] CPT-35711 Level 3 Est. Patient 14:40:57 CDT Yolande Lindsay MD [facility] CPT-97752 Level 3 Est. Patient 20:55:40 CDT Yolande Lindsay MD [facility] CPT-69455 Level 3 Est. Patient 12:42:38 [employer] SAL[employer] REPRESENTATIVE Yolande Lindsay MD [facility] CPT-15318 Level 3 Est. Patient 11:54:49 [employer] SALES REPRESENTATIVE Des Hines MD [facility] CPT-60122 Level 3 Est. Patient 17:06:38 CDT Dewayne PERAZA [facility] Procedures Code Procedure Name Date Entry Date Standard Description [id number] Event Monitor - MC Transmission 09:12:32 CDT 08/06 [id number] Event Monitor - MC review and interp 09:12:32 CDT [id number] Event Monitor - MC recording 09:12:32 CDT CPT-58374 EKG Trac and Interp 16:50:22 CDT CPT-J1030 Depo Medrol 40 mg (Methyl Prednisolone Acetate) 17:05: 54 CDT CPT-J1100 Decadron 4mg (Dexamethasone) 17:05:54 CDT CPT-35951 Abx/Therapy Injection 17:05:54 CDT CPT-J1100 Decadron 4mg (Dexamethasone) 16:55:28 CDT CPT-J1030 Depo Medrol 40 mg (Methyl Prednisolone Acetate) 16:55: 28 CDT CPT-86801 Ankle Complete - Min 3V 15:58:50 CDT CPT-38280 Knee 3V 15:58:50 CDT CPT-56119 Hip comp min 2V 15:58:50 CDT CPT-J2270 Morphine Sulfate 10 mg 14:25:44 [employer] REPRESENTATIVE CPT-J2550 Phenergan 12.5 mg (Promethazine) 14:25:44 [employer] REPRESENTATIVE CPT-97952 Abx/Therapy Injection 14:25:44 [employer] REPRESENTATIVE CPT-J2550 Phenergan 12.5 mg (Promethazine) 14:08:03 [employer] REPRESENTATIVE CPT-J2270 Morphine Sulfate 10 mg 14:08:03 [employer] REPRESENTATIVE CPT-12083 Bladder Scan 15:00:38 CDT CPT-TCMM Transitional Care Mgmt-Moderate 09:52:22 CDT CPT-J1030 Depo Medrol 40 mg (Methyl Prednisolone Acetate) 10:55: 18 CDT CPT-J1100 Decadron 4mg (Dexamethasone) 10:55:18 CDT CPT-88391 Abx/Therapy Injection 10:55:18 CDT CPT-J1030 Depo Medrol 40 mg (Methyl Prednisolone Acetate) 10:22: 32 CDT CPT-J1100 Decadron 4mg (Dexamethasone) 10:22:32 CDT CPT-59371 Postop F/U Visit 14:37:13 CDT CPT-27006 Ankle Complete - Min 3V 17:11:58 CDT CPT-98330 Foot comp min 3V 17:11:58 CDT CPT-29508 Bladder Scan 09:56:58 CDT CPT-37195 Postop F/U Visit 09:56:58 CDT CPT-60163 Cystoscopy 09:02:42 CDT CPT-53311 Bladder Scan 09:02:42 CDT CPT-95330 Abd single AP View 16:00:35 CDT CPT-03109 Administration single or combination vaccine inc oral 10 :15:43 CDT CPT-35636 Influenza split virus > age 3 10:15:43 CDT CPT-14895 Nail Avulsion 09:24:57 CDT CPT-OV Office Visit 11:15:41 CDT CPT-32004 Abx/Therapy Injection 10:51:30 CDT CPT-J3301 Kenalog 40 mg (Triamcinolone Acetonide) 10:25:12 CDT CPT-J1100 Decadron 4mg (Dexamethasone) 10:25:12 CDT CPT-56415 Anoscopy diagnostic 10:36:12 CDT CPT-OV Office Visit 15:34:31 CDT CPT-43529 Abx/Therapy Injection 08:21:15 [employer] REPRESENTATIVE CPT-J1885 Toradol 60 mg (Ketorolac) 10:46:35 [employer] REPRESENTATIVE CPT-OV Office Visit 19:51:16 [employer] SAL[employer] REPRESENTATIVE CPT-64502 Spec Collection and Handling Fee 14:34:18 [employer] REPRESENTATIVE CPT-PV Prev. Care Visit 14:19:18 [employer] REPRESENTATIVE CPT-04464 Postop F/U Visit 14:47:51 [employer] REPRESENTATIVE CPT-60571 Postop F/U Visit 15:15:14 [employer] REPRESENTATIVE CPT-32093 Postop F/U Visit 14:41:43 CDT CPT-48775 Postop F/U Visit 15:47:46 CDT CPT-OV Office Visit 15:27:23 CDT CPT-OV Office Visit 17:20:34 CDT CPT-76295 Abx/Therapy Injection 15:05:57 CDT CPT-J1100 Decadron 8mg (Dexamethasone) 14:44:57 CDT CPT-J1040 Depo Medrol 80 mg (Methyl Prednisolone Acetate) 14:44: 57 CDT CPT-JTINJ Joint Injection 10:17:37 CDT CPT-61142 Administration 2+ single or combination vaccines inc oral 13:01:46 [employer] REPRESENTATIVE CPT-32941 Administration single or combination vaccine inc oral 13 :01:46 [employer] REPRESENTATIVE CPT-91812 Pneumovax 13:01:46 [employer] REPRESENTATIVE CPT-62253 Influenza split virus > age 3 13:01:46 [employer] REPRESENTATIVE CPT-07728 Administration single or combination vaccine inc oral 08 :56:49 CDT CPT-44737 Tdap 08:56:49 CDT
--- OUTSIDE RECORDS SUMMARY | 2017-03-22 02:34 | XMS REPORT | Clinical Summary ---
Author Author Admin, E Organization [facility] Address Unknown Phone Unavailable Allergies, Adverse Reactions, Alerts Allergy Name Reaction Description Start Date Severity Status Provider VALENTIN Critical Active Rodrigo Fracharlottel DIRECTOR ORACLE CHLORHEXIDINE GLUCONATE tongue and gums swollen Critical Active Hoa Otto RMA NORFLEX Rash Critical Active Silvestrellina Frazell DIRECTOR ORACLE TRAZODONE HCL sees things Critical Active Dewayne [...] Unspecified fall Knee sprain, left 844.9 Resolved Yoalnde Lindsay MD PhD Sprain of unspecified site [...] MD Lumbago Cough 786.2 Active Jillina Tyrel DIRECTOR ORACLE Cough 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 Jillina Frazellilian DIRECTOR ORACLE 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 Anemia 285.9 Active Gab Padron MD Anemia, unspecified Conjunctivitis 372.30 Active Jillnacho Sarah APRN Conjunctivitis, unspecified Sinusitis 473.9 Active Silvestrellina Frazell DIRECTOR ORACLE Unspecified sinusitis (chronic) Nonspecific syndrome suggestive of viral illness 079.99 Active Jillina Frazell DIRECTOR ORACLE Unspecified viral infection Laryngitis 464.00 Active Jillina Frazell DIRECTOR ORACLE Acute laryngitis without mention of obstruction Abdominal [...] Flank pain, left 789.09 Active Jillina Frazell DIRECTOR ORACLE Abdominal pain, other specified site; multiple sites Abdominal pain, generalized 789.07 Active Jillina Farshadzell DIRECTOR ORACLE Abdominal pain, generalized Back pain, thoracic region, left 724.1 Active Jillina Frazell DIRECTOR ORACLE Pain in thoracic spine Abdominal pain, left [...] every 6 hrs prn pain TRAMADOL HCL 75904145409 Active Gab Padron MD Active PREDNISONE 20 MG TAB 2 tabs daily for 3 days, 1 tab daily for 3 days, 1/2 tab daily for 2 days PREDNISONE 60881703641 No Longer Active Gab Padron MD Active ZOFRAN ODT 4 MG TBDP 1 po q6hr PRN Nausea ONDANSETRON 69053847683 Active Gab Padron MD Active IBUPROFEN 600 MG TAB 1 tablet by mouth every 6 hours for 7 days, then 1 tablet every 6 hours as needed. Take with food IBUPROFEN 48746554697 Active Jillina Frazell DIRECTOR ORACLE Active BACTRIM DS 800-160 MG TAB 1 tab by mouth twice daily TRIMETHOPRIM-SULFAMETHOXAZOLE 94418455111 No Longer Active Gab Padron MD Active ADVAIR DISKUS 250-50 MCG/DOSE AEPB 1 puff BID FLUTICASONE- SALMETEROL 91208792947 Active Silvestrellnacho Sarah APRN Active LEVOTHYROXINE SODIUM 75 MCG TABS Take 1 tab daily LEVOTHYROXINE SODIUM 53642074558 No Longer Active Mariana FLEMING Active SYNTHROID 88 MCG ORAL TABS Take one by mouth daily LEVOTHYROXINE SODIUM 01383476580 Active Gab Padron MD Active CHERATUSSIN AC 100-10 MG/5ML SYRP 1 tsp by mouth every 4 hours as needed for cough GUAIFENESIN-CODEINE 65319315810 No Longer Active Gab Padron MD Active POLYTRIM 73660-8.1 UNIT/ML-% SOLN 1 gtt to affected eye q3h x 7 days POLYMYXIN B-TRIMETHOPRIM 26093583994 No Longer Active Gab Padron MD Active FLUTICASONE PROPIONATE 50 MCG/ACT SUSP 1 to 2 sprays each nostril daily 04/21 FLUTICASONE PROPIONATE 02883792022 No Longer Active Gab Padron MD Active TRILEPTAL 600 MG TABS Take one 1 tablet in Am and 1 tablet at night OXCARBAZEPINE 36517562251 Active Gab Padron MD Active CEFDINIR 300 MG CAPS 1 po BID x 10 days CEFDINIR 12682232497 No Longer Active Rodrigo Sarah APRN Active CEFTIN 500 MG TAB 1 twice a day CEFUROXIME AXETIL 10577796193 No Longer Active Gab Padron MD Active AZITHROMYCIN 250 MG TABS 2 po qd x 1 day, then 1 po qd x 4 days AZITHROMYCIN 32453069805 No Longer Active Rodrigo Sarah APRN Active CLARITIN 10 MG TAB 1 tablet by mouth daily as needed for allergies LORATADINE 21924204746 Active Rodrigo Sarah APRN Active OXYCODONE HCL 5 MG ORAL CAPS 1 TAB PO Q HS OXYCODONE HCL 54526995285 No Longer Active Rodrigo Sarah APRN Active NIASPAN 500 MG ORAL CR-TABS 1 pill nightly x 1 week, then 2 pills nightly x 1 week, then 3 pills nightly x 1 week, then 4 pills nightly NIACIN (ANTIHYPERLIPIDEMIC) 40930801740 No Longer Active Rodrigo Sarah APRN Active NIACIN 500 MG TABS 1 pill by mouth nightly x 1 week, then 2 pills x 1 week, then 3 pills x 1 week, then 4 pills nightly - take after evening meal, with applesauce or an apple NIACIN 11324339062 No Longer Active Yolande Lindsay MD PhD Active FISH OIL 1000 MG CAPS 3 pills daily OMEGA-3 FATTY ACIDS 62377291073 Active Yolande Lindsay MD PhD Active TRIAMCINOLONE ACETONIDE 0.1 % CREA apply bid sparingly to rash TRIAMCINOLONE ACETONIDE 79772150006 Active Yolande Lindsay MD PhD Active FUROSEMIDE 20 MG TAB 1 tablet by mouth daily FUROSEMIDE 12746005893 Active Tisha Lambert APRN Active LISINOPRIL 20 MG ORAL TABS 1 tab by mouth daily LISINOPRIL 90850516269 Active Tisha Lambert APRN Active FUROSEMIDE 20 MG TABS 1 pill by mouth daily, for edema FUROSEMIDE 13051262373 No Longer Active Yolande Lindsay MD PhD Active ATORVASTATIN CALCIUM 10 MG TABS 1 pill by mouth daily, for cholesterol 09/06 ATORVASTATIN CALCIUM 49207329143 Active Gab Padron MD Active CALCIUM 600+D PLUS MINERALS 600-400 MG-UNIT ORAL CHEW 1 tab by mouth daily CALCIUM CARBONATE-VIT D-MIN 72407342853 No Longer Active Yolande Lindsay MD PhD Active CYCLOBENZAPRINE HCL 10 MG TABS 1 tablet by mouth three times daily as needed for muscle spasm/pain CYCLOBENZAPRINE HCL 55968334598 Active Yolande Lindsay MD PhD Active ONDANSETRON 4 MG TBDP 1 q4h PRN nausea ONDANSETRON 15170375366 Active Yolande Lindsay MD PhD Active ADULT ASPIRIN EC LOW STRENGTH 81 MG TBEC Take 1 tablet by mouth daily 2014 ASPIRIN 29825784682 No Longer Active Yolande Lindsay MD PhD Active ZOFRAN ODT 4 MG TBDP 1 pill dissolved by mouth every 4 hours if needed for nausea ONDANSETRON 10511881455 No Longer Active Yolande Lindsay MD PhD Active CEFTIN 500 MG TAB 1 twice a day CEFUROXIME AXETIL 07453005744 No Longer Active Yolande Lindsay MD PhD Active ALBUTEROL SULFATE 0.083 % NEBU SOLN one vial per nebulizer every 4-6 hours as needed ALBUTEROL SULFATE 88745351073 No Longer Active Alexis Ordaz MD Active DOXYCYCLINE HYCLATE 100 MG CAP 1 cap by mouth twice daily DOXYCYCLINE HYCLATE 10287965158 No Longer Active Yolande Lindsay MD PhD Active CYCLOBENZAPRINE HCL 10 MG TABS 1/2 - 1 tab by mouth three times daily if needed for spasms/pain CYCLOBENZAPRINE HCL 51368269131 No Longer Active Yolande Lindsay MD PhD Active AZITHROMYCIN 250 MG TABS 2 pills on day 1, then 1 pill daily x 4 days AZITHROMYCIN 06284039373 No Longer Active Yolande Lindsay MD PhD Active XOPENEX 1.25 MG/3ML NEBU 1 neb every 4 hours if needed for cough/congestion LEVALBUTEROL HCL 94596496101 No Longer Active Yolande Lindsay MD PhD Active DOXYCYCLINE HYCLATE 100 MG TAB 1 tab twice a day for 14 days 2013 DOXYCYCLINE HYCLATE 79276553626 No Longer Active Yolande Lindsay MD PhD Active PREVACID 30 MG CPDR Take 1 tablet by mouth daily-PRN LANSOPRAZOLE 40684249183 No Longer Active Yolande Lindsay MD PhD Active PA VITAMIN D-3 2000 UNIT CAPS 1 CAP PO DAILY CHOLECALCIFEROL 50389736973 No Longer Active Yolande Lindsay MD PhD Active CEFDINIR 300 MG CAPS by mouth twice a day CEFDINIR 27122475582 No Longer Active Gab Padron MD Active TOPAMAX 50 MG TABS 1 PO twice daily TOPIRAMATE 14821879335 Active Yolande Lindsay MD PhD Active AZITHROMYCIN 250 MG TABS 2 po qd x 1 day, then 1 po qd x 4 days AZITHROMYCIN 98875295159 No Longer Active Yolande Lindsay MD PhD Active DICLOFENAC SODIUM 75 MG TBEC 1 tablet by q 12 hours PRN headaches DICLOFENAC SODIUM 83453419718 No Longer Active Yolande Lindsay MD PhD Active FLONASE 50 MCG/ACT SUSP 1 spray each nostril am and hs FLUTICASONE PROPIONATE 77513657174 No Longer Active Todd Callaway MD Active ANUSOL-HC 25 MG SUPPOSITORY 1 rectally twice a day as needed for hemorrhoids HYDROCORTISONE JAYDEN (RECTAL) 16443577735 No Longer Active Yolande Lindsay MD PhD Active ANUSOL-HC 25 MG SUPPOSITORY 1 suppository rectally each evening as needed for anal fissure HYDROCORTISONE JAYDEN (RECTAL) 25542275555 No Longer Active LONNIE Iglesias Active VALIUM 5 MG TAB 1 po 30 minutes prior to your MRI DIAZEPAM 07776774630 No Longer Active Bozena LONNIE Coleman Active METHOCARBAMOL 750 MG TABS 1 PO QID PRN METHOCARBAMOL 76423490316 No Longer Active Daphne Wetzel DIRECTOR ORACLE Active NITROSTAT 0.4 MG SUBL as directed NITROGLYCERIN 02223278446 No Longer Active Rodrigo Sarah DIRECTOR ORACLE Active ROBAXIN-750 750 MG TABS 2 four times a day for 3 days as needed for muscle spasm, then 1 four times a day as needed METHOCARBAMOL 33435695905 No Longer Active Rodrigo Sarah APRN Active HYDROCODONE-ACETAMINOPHEN 5-325 MG TABS 1 q 4-6 hrs prn HYDROCODONE-ACETAMINOPHEN 28794167870 No Longer Active Rodrigo Sarah APRN Active VERAPAMIL HCL CR 180 MG CR-TABS TAKE 1 TAB DAILY VERAPAMIL HCL 97599022734 No Longer Active Yolande Lindsay MD PhD Active BACTRIM DS 800-160 MG TAB 1 tab by mouth twice daily TRIMETHOPRIM-SULFAMETHOXAZOLE 62848064072 No Longer Active Yolande Lindsay MD PhD Active NEXIUM 40 MG PACK 1 by mouth daily ESOMEPRAZOLE MAGNESIUM 49448687565 No Longer Active Des Hines MD Active EPIPEN 2-CHARLETTE 0.3 MG/0.3ML OMARI as need for allergic reaction EPINEPHRINE 48558422438 Active Yolande Lindsay MD PhD Active NEXIUM 40 MG CPDR 1 PO Q D DAY ESOMEPRAZOLE MAGNESIUM 96530904812 No Longer Active Sadia Perry RN Active NEXIUM 40 MG PACK 1 by mouth daily NEXIUM 40 MG PACK ESOMEPRAZOLE MAGNESIUM Inactive VERAPAMIL HCL CR 180 MG CR-TABS TAKE 1 TAB DAILY VERAPAMIL HCL CR 180 MG CR-TABS VERAPAMIL HCL Inactive HYDROCODONE-ACETAMINOPHEN 5-325 MG TABS 1 q 4-6 hrs prn HYDROCODONE-ACETAMINOPHEN 5-325 MG TABS 958231 HYDROCODONE-ACETAMINOPHEN Inactive ROBAXIN-750 750 MG TABS 2 four times a day for 3 days as needed for muscle spasm, then 1 four times a day as needed ROBAXIN-750 750 MG TABS 910788 METHOCARBAMOL Inactive NITROSTAT 0.4 MG SUBL as directed NITROSTAT 0.4 MG SUBL 838375 NITROGLYCERIN Inactive METHOCARBAMOL 750 MG TABS 1 PO QID PRN METHOCARBAMOL 750 MG TABS 774847 METHOCARBAMOL Inactive VALIUM 5 MG TAB 1 po 30 minutes prior to your MRI VALIUM 5 MG TAB 111144 DIAZEPAM Inactive ANUSOL-HC 25 MG SUPPOSITORY 1 suppository rectally each evening as needed for anal fissure ANUSOL-HC 25 MG SUPPOSITORY 2547484 HYDROCORTISONE JAYDEN (RECTAL) Inactive ANUSOL-HC 25 MG SUPPOSITORY 1 rectally twice a day as needed for hemorrhoids ANUSOL-HC 25 MG SUPPOSITORY 0024599 HYDROCORTISONE JAYDEN (RECTAL) Inactive FLONASE 50 MCG/ACT SUSP 1 spray each nostril am and hs FLONASE 50 MCG/ACT SUSP FLUTICASONE PROPIONATE Inactive DICLOFENAC SODIUM 75 MG TBEC 1 tablet by q 12 hours PRN headaches DICLOFENAC SODIUM 75 MG TBEC 257012 DICLOFENAC SODIUM Inactive PA VITAMIN D-3 2000 UNIT CAPS 1 CAP PO DAILY PA VITAMIN D-3 2000 UNIT CAPS CHOLECALCIFEROL Inactive PREVACID 30 MG CPDR Take 1 tablet by mouth daily-PRN PREVACID 30 MG CPDR 186345 LANSOPRAZOLE Inactive DOXYCYCLINE HYCLATE 100 MG TAB 1 tab twice a day for 14 days 2013 DOXYCYCLINE HYCLATE 100 MG TAB 6446962 DOXYCYCLINE HYCLATE Inactive XOPENEX 1.25 MG/3ML NEBU 1 neb every 4 hours if needed for cough/congestion XOPENEX 1.25 MG/3ML NEBU 650180 LEVALBUTEROL HCL Inactive CYCLOBENZAPRINE HCL 10 MG TABS 1/2 - 1 tab by mouth three times daily if needed for spasms/pain CYCLOBENZAPRINE HCL 10 MG TABS 115693 CYCLOBENZAPRINE HCL Inactive ALBUTEROL SULFATE 0.083 % NEBU SOLN one vial per nebulizer every 4-6 hours as needed ALBUTEROL SULFATE 0.083 % NEBU SOLN 954276 ALBUTEROL SULFATE Inactive CEFTIN 500 MG TAB 1 twice a day CEFTIN 500 MG TAB 156620 CEFUROXIME AXETIL Inactive ZOFRAN ODT 4 MG TBDP 1 pill dissolved by mouth every 4 hours if needed for nausea ZOFRAN ODT 4 MG TBDP 158908 ONDANSETRON Inactive ADULT ASPIRIN EC LOW STRENGTH 81 MG TBEC Take 1 tablet by mouth daily 2014 ADULT ASPIRIN EC LOW STRENGTH 81 MG TBEC 031418 ASPIRIN Inactive CALCIUM 600+D PLUS MINERALS 600-400 [...] or an apple NIACIN 500 MG TABS 165750 NIACIN Inactive NIASPAN 500 MG ORAL CR-TABS 1 pill nightly x 1 week, then 2 pills nightly x 1 week, then 3 pills nightly x 1 week, then 4 pills nightly NIASPAN 500 MG ORAL CR-TABS NIACIN (ANTIHYPERLIPIDEMIC) Inactive OXYCODONE HCL 5 MG ORAL CAPS 1 TAB PO Q HS OXYCODONE HCL 5 MG ORAL CAPS 3198813 OXYCODONE HCL Inactive FLUTICASONE PROPIONATE 50 MCG/ACT SUSP 1 to 2 sprays each nostril daily 04/21 FLUTICASONE PROPIONATE 50 MCG/ACT SUSP 6740369 FLUTICASONE PROPIONATE Inactive POLYTRIM 89021-8.1 UNIT/ML-% SOLN 1 gtt to affected eye q3h x 7 days POLYTRIM 12395-1.1 UNIT/ML-% SOLN 129753 POLYMYXIN B- TRIMETHOPRIM Inactive CHERATUSSIN AC 100-10 MG/5ML SYRP 1 tsp by mouth every 4 hours as needed for cough CHERATUSSIN AC 100-10 MG/5ML SYRP 316041 GUAIFENESIN-CODEINE Inactive LEVOTHYROXINE SODIUM 75 MCG TABS Take 1 tab daily LEVOTHYROXINE SODIUM 75 MCG TABS 587757 LEVOTHYROXINE SODIUM Inactive BACTRIM DS 800-160 MG TAB 1 tab by mouth twice daily BACTRIM DS 800-160 MG TAB 860116 TRIMETHOPRIM-SULFAMETHOXAZOLE Inactive AZITHROMYCIN 250 MG TABS 2 po qd x 1 day, then 1 po qd x 4 days AZITHROMYCIN 250 MG TABS 0208908 AZITHROMYCIN Inactive CEFDINIR 300 MG CAPS by mouth twice a day CEFDINIR 300 MG CAPS 917468 CEFDINIR Inactive AZITHROMYCIN 250 MG TABS 2 pills on day 1, then 1 pill daily x 4 days AZITHROMYCIN 250 MG TABS 2330417 AZITHROMYCIN Inactive DOXYCYCLINE HYCLATE 100 MG CAP 1 cap by mouth twice daily DOXYCYCLINE HYCLATE 100 MG CAP 2145661 DOXYCYCLINE HYCLATE Inactive FUROSEMIDE 20 MG TABS 1 pill by mouth daily, for edema FUROSEMIDE 20 MG TABS 799900 FUROSEMIDE Inactive AZITHROMYCIN 250 MG TABS 2 po qd x 1 day, then 1 po qd x 4 days AZITHROMYCIN 250 MG TABS 4771778 AZITHROMYCIN Inactive CEFTIN 500 MG TAB 1 twice a day CEFTIN 500 MG TAB 463543 CEFUROXIME AXETIL Inactive CEFDINIR 300 MG CAPS 1 po BID x 10 days CEFDINIR 300 MG CAPS 898914 CEFDINIR Inactive BACTRIM DS 800-160 MG TAB 1 tab by mouth twice daily BACTRIM DS 800-160 MG TAB 231898 TRIMETHOPRIM-SULFAMETHOXAZOLE Inactive PREDNISONE 20 MG TAB 2 tabs daily for 3 days, 1 tab daily for 3 days, 1/2 tab daily for 2 days PREDNISONE 20 MG TAB 704859 PREDNISONE Inactive Immunizations Vaccine Administration Date Value Standard Description Seasonal influenza vaccine, injectable, containing preservative, for > 3 years old (Afluria, FluLaval, Fluzone, Fluvirin, Fluarix, Agriflu(>=18 yo)) Fluzone (>3 yrs.) [PER061] Influenza, seasonal, injectable influenza immunization (Flu Vax) has been administered Influenza - Unspecified Formulation [CVX88] influenza virus vaccine, unspecified formulation Seasonal influenza vaccine, injectable, containing preservative, for > 3 years old (Afluria, FluLaval, Fluzone, Fluvirin, Fluarix, Agriflu(>=18 yo)) Fluzone (>3 yrs.) [DQY438] Influenza, seasonal, injectable pneumococcal immunization administered Pneumovax 23 [CVX33] pneumococcal polysaccharide vaccine, 23 valent dT (Diphtheria and Tetanus) booster given given Td(adult) unspecified formulation Boostrix (Tetanus toxoid, reduced diphtheria toxoid and acellular pertussis vaccine, adsorbed), booster Boostrix [HNM311] tetanus toxoid, reduced diphtheria toxoid, and acellular [...] Panel - Chemistry sodium, serum 142 mmol/L 919-626 3803/06/30 potassium, serum 4.4 mmol/L 3.5-5.2 chloride, serum [...] Rate - Chemistry sodium, serum 139 mmol/L 198-315 0809/03/24 carbon dioxide, venous blood 22.4 mmol/L 21.0-32.0 [...] ... - Chemistry sodium, serum 143 mmol/L 848-365 3494/05/02 carbon dioxide, venous blood 25.6 mmol/L 21.0-32.0 [...] PANEL - Chemistry cholesterol, serum 166 mg/dL 439-015 9481/12/06 triglyceride, serum, fasting 86 mg/dL 30-200 HDL [...] Negative mg/dL Negative sodium, serum 142 mmol/L 820-888 9320/07/18 carbon dioxide, venous blood 27.8 mmol/L 21.0-32.0 [...] negative Encounters Code Encounter Date Provider Facility CPT-75502 Level 3 Est. 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 Patient 17:07:49 SPECIAL EDUCATION RESOURCE ROOM TEACHER Jared Og MD [facility] CPT-24338 Level 4 Est. Patient 19:55:18 SPECIAL EDUCATION RESOURCE ROOM TEACHER Jared Og MD [facility] CPT-32345 Level 3 Est. Patient 20:13:34 SPECIAL EDUCATION RESOURCE ROOM TEACHER Jared gO MD [facility] CPT-50237 Level 4 Est. Patient 16:31:27 CDT Gab Padron MD [facility] CPT-11159 Level 2 Est. Patient 12:23:38 CDT Jared Og MD [facility] CPT-11478 Level 3 Est. Patient 11:01:51 CDT Gab Padron MD [facility] CPT-00315 Level 3 Est. Patient 15:27:02 CDT Jared Og MD [facility] CPT-97302 Level 4 Est. Patient 09:25:27 CDT Gab Padron MD [facility] CPT-30146 Level 3 Est. Patient 10:29:41 CDT Rodrigo Sarah [facility] CPT-26522 Level 4 Est. Patient 17:51:05 CDT Gab Padron MD [facility] CPT-08221 Level 3 Est. Patient 14:18:08 CDT Gab Padron MD [facility] CPT-63448 Level 4 Est. Patient 10:18:54 CDT Gab Padron MD [facility] CPT-76891 Level 3 Est. Patient 11:30:07 CDT Rodrigo Sarah [facility] CPT-53015 Level 4 Est. Patient 21:02:30 SPECIAL EDUCATION RESOURCE ROOM TEACHER Gab Padron MD [facility] CPT-84254 Level 3 Est. Patient 11:02:19 SPECIAL EDUCATION RESOURCE ROOM TEACHER Gab Padron MD [facility]-33792 Level 4 Est. Patient 22:24:31 SPECIAL EDUCATION RESOURCE ROOM TEACHER Gab Padron MD [facility]-79226 Level 3 Est. Patient 18:33:46 SPECIAL EDUCATION RESOURCE ROOM TEACHER Gab Padron MD [facility]-08822 Level 3 Est. Patient 16:19:11 CDT Yolande Lindsay MD [facility]-18345 Level 3 Est. Patient 18:59:14 CDT Yolande Lindsay MD [facility]-28231 Level 4 Est. Patient 21:29:26 CDT Yolande Lindsay MD [facility]-39610 Level 3 Est. Patient 07:37:45 CDT Yolande Lindsay MD [facility]-51930 Level 3 Est. Patient 17:03:46 CDT Yolande Lindsay MD [facility]-63788 Level 4 Est. Patient 20:02:13 SPECIAL EDUCATION RESOURCE ROOM TEACHER Yolande Lindsay MD [facility]-28608 Level 3 Est. Patient 16:02:07 SPECIAL EDUCATION RESOURCE ROOM TEACHER Alexis Ordaz MD [facility]-74924 Level 3 Est. Patient 12:41:24 SPECIAL EDUCATION RESOURCE ROOM TEACHER Yolande Lindsay MD [facility]-31348 Level 3 Est. Patient 15:41:20 SPECIAL EDUCATION RESOURCE ROOM TEACHER Yolande Lindsay MD [facility]-89664 Level 3 Est. Patient 13:20:02 SPECIAL EDUCATION RESOURCE ROOM TEACHER Yolande Lindsay MD [facility]-82713 Level 3 Est. Patient 15:00:38 CDT Jared Og MD [facility]-27914 Level 3 Est. Patient 10:22:32 CDT Yolande Lindsay MD [facility] CPT-59027 Level 3 Est. Patient 17:12:58 CDT Yolande Lindsay MD [facility]-94291 Level 4 Est. Patient 13:30:58 CDT Yolande Lindsay MD [facility]-23031 Level 4 New Patient 09:02:42 CDT Jared Og MD [facility]-57126 Level 3 Est. Patient 08:19:07 CDT Yolande Lindsay MD [facility]-07851 Level 3 Est. Patient 12:00:13 SPECIAL EDUCATION RESOURCE ROOM TEACHER Gab Padron MD [facility]-84886 Level 3 Est. Patient 16:15:23 SPECIAL EDUCATION RESOURCE ROOM TEACHER Yolande Lindsay MD [facility]-59502 Level 2 Est. Patient 19:47:15 CDT Yolande Lindsay MD [facility] CPT-24189 Level 3 Est. Patient 21:38:31 CDT Yolande Lindsay MD [facility]-49767 Level 3 Est. Patient 10:25:12 CDT Adiel PERAZA [facility] CPT-64530 Level 4 Est. Patient 10:51:58 CDT Yolande Lindsay MD [facility] CPT-80150 Level 3 Est. Patient 14:04:55 SPECIAL EDUCATION RESOURCE ROOM TEACHER Rodrigo Sarah Formerly named [facility] CPT-83415 Level 3 Est. Patient 10:46:35 SPECIAL EDUCATION RESOURCE ROOM TEACHER Rodrigo Sarah Formerly named [facility] CPT-95516 Level 3 Est. Patient 14:24:37 SPECIAL EDUCATION RESOURCE ROOM TEACHER Yolande Lindsay MD [facility]-64034 Level 3 Est. Patient 17:41:58 SPECIAL EDUCATION RESOURCE ROOM TEACHER Yolande Lindsay MD [facility]-45700 Level 2 Est. Patient 22:01:41 SPECIAL EDUCATION RESOURCE ROOM TEACHER Rodrigo Sarah Formerly named [facility] CPT-44812 Level 2 Est. Patient 22:01:11 SPECIAL EDUCATION RESOURCE ROOM TEACHER Rodrigo Sarah Formerly named [facility] CPT-02441 Level 3 Est. Patient 10:12:29 SPECIAL EDUCATION RESOURCE ROOM TEACHER Rodrigo Sarah Former[facility] named [facility] CPT-37788 Level 3 Est. Patient 11:05:44 CDT Alexis Ordaz MD [facility] CPT-09835 Level 3 Est. Patient 14:57:20 CDT Yolande Lindsay MD [facility] CPT-85031 Level 3 Est. Patient 14:40:57 CDT Yolande Lindsay MD [facility] CPT-57750 Level 3 Est. Patient 20:55:40 CDT Yolande Lindsay MD [facility] CPT-85948 Level 3 Est. Patient 12:42:38 SPECIAL EDUCATION RESOURCE ROOM TEACHER Yolande Lindsay MD [facility] CPT-90917 Level 3 Est. Patient 11:54:49 SPECIAL EDUCATION RESOURCE ROOM TEACHER Des Hines MD [facility] CPT-99279 Level 3 Est. Patient 17:06:38 CDT Dewayne PERAZA [facility] Procedures Code Procedure Name Date Entry Date Standard Description CPT-70054 Hip, complete, 2-3 views - XRAY USE ONLY 17:19:04 SPECIAL EDUCATION RESOURCE ROOM TEACHER CPT-80551 Venipuncture Draw Fee 08:37:59 SPECIAL EDUCATION RESOURCE ROOM TEACHER CPT-34959 Liver Profile - LAB USE ONLY 08:37:59 SPECIAL EDUCATION RESOURCE ROOM TEACHER CPT-25989 Lipid - LAB USE ONLY 08:37:58 SPECIAL EDUCATION RESOURCE ROOM TEACHER CPT-27067 First Vx - Ix admin via ID IM or jet injects without counseling by physician 11:52:31 CDT CPT-09075 Fluzone Preservative Free Intramuscular Suspension 11:52 :31 CDT CPT-60251 Foot, left, comp min 3V - XRAY USE ONLY 09:24:54 CDT CPT-27262 Abd single AP View - XRAY USE ONLY 11:16:17 CDT CPT-77240 T spine AP/ Lat - XRAY USE ONLY 09:34:21 CDT CPT-38480 Chest 2V Frontal and Lat - XRAY USE ONLY 10:48:51 CDT CPT-22715 LS spine comp w obliq 13:28:00 [employer] EDUCATION RESOURCE ROOM TEACHER CPT-J1040 Depo Medrol 80 mg (Methyl Prednisolone Acetate) 10:51: 28 SPECIAL EDUCATION RESOURCE ROOM TEACHER CPT-J1100 Decadron 8mg (Dexamethasone) 10:51:28 SPECIAL EDUCATION RESOURCE ROOM TEACHER CPT-66242 Abx/Therapy Injection 10:51:28 SPECIAL EDUCATION RESOURCE ROOM TEACHER CPT-J1100 Decadron 8mg (Dexamethasone) 21:02:30 SPECIAL EDUCATION RESOURCE ROOM TEACHER CPT-J1040 Depo Medrol 80 mg (Methyl Prednisolone Acetate) 21:02: 30 SPECIAL EDUCATION RESOURCE ROOM TEACHER [id number] Event Monitor - MC Transmission 09:12:32 CDT 08/06 [id number] Event Monitor - MC review and interp 09:12:32 CDT [id number] Event Monitor - MC recording 09:12:32 CDT CPT-56058 EKG Trac and Interp 16:50:22 CDT CPT-J1030 Depo Medrol 40 mg (Methyl Prednisolone Acetate) 17:05: 54 CDT CPT-J1100 Decadron 4mg (Dexamethasone) 17:05:54 CDT CPT-00768 Abx/Therapy Injection 17:05:54 CDT CPT-J1100 Decadron 4mg (Dexamethasone) 16:55:28 CDT CPT-J1030 Depo Medrol 40 mg (Methyl Prednisolone Acetate) 16:55: 28 CDT CPT-03617 Ankle Complete - Min 3V 15:58:50 CDT CPT-09479 Knee 3V 15:58:50 CDT CPT-72123 Hip comp min 2V 15:58:50 CDT CPT-J2270 Morphine Sulfate 10 mg 14:25:44 SPECIAL EDUCATION RESOURCE ROOM TEACHER CPT-J2550 Phenergan 12.5 mg (Promethazine) 14:25:44 SPECIAL EDUCATION RESOURCE ROOM TEACHER CPT-81133 Abx/Therapy Injection 14:25:44 SPECIAL EDUCATION RESOURCE ROOM TEACHER CPT-J2550 Phenergan 12.5 mg (Promethazine) 14:08:03 SPECIAL EDUCATION RESOURCE ROOM TEACHER CPT-J2270 Morphine Sulfate 10 mg 14:08:03 SPECIAL EDUCATION RESOURCE ROOM TEACHER CPT-99224 Bladder Scan 15:00:38 CDT CPT-TCMM Transitional Care Mgmt-Moderate 09:52:22 CDT CPT-J1030 Depo Medrol 40 mg (Methyl Prednisolone Acetate) 10:55: 18 CDT CPT-J1100 Decadron 4mg (Dexamethasone) 10:55:18 CDT CPT-82505 Abx/Therapy Injection 10:55:18 CDT CPT-J1030 Depo Medrol 40 mg (Methyl Prednisolone Acetate) 10:22: 32 CDT CPT-J1100 Decadron 4mg (Dexamethasone) 10:22:32 CDT CPT-07556 Postop F/U Visit 14:37:13 CDT CPT-26730 Ankle Complete - Min 3V 17:11:58 CDT CPT-45833 Foot comp min 3V 17:11:58 CDT CPT-44882 Bladder Scan 09:56:58 CDT CPT-20706 Postop F/U Visit 09:56:58 CDT CPT-20507 Cystoscopy 09:02:42 CDT CPT-14564 Bladder Scan 09:02:42 CDT CPT-40573 Abd single AP View 16:00:35 CDT CPT-09635 Administration single or combination vaccine inc oral 10 :15:43 CDT CPT-20699 Influenza split virus > age 3 10:15:43 CDT CPT-71895 Nail Avulsion 09:24:57 CDT CPT-OV Office Visit 11:15:41 CDT CPT-85309 Abx/Therapy Injection 10:51:30 CDT CPT-J3301 Kenalog 40 mg (Triamcinolone Acetonide) 10:25:12 CDT CPT-J1100 Decadron 4mg (Dexamethasone) 10:25:12 CDT CPT-58256 Anoscopy diagnostic 10:36:12 CDT CPT-OV Office Visit 15:34:31 CDT CPT-90653 Abx/Therapy Injection 08:21:15 [employer] CPT-J1885 Toradol 60 mg (Ketorolac) 10:46:35 [employer] CPT-OV Office Visit 19:51:16 [employer] CPT-00909 Spec Collection and Handling Fee 14:34:18 [employer] CPT-PV Prev. Care Visit 14:19:18 [employer] CPT-84260 Postop F/U Visit 14:47:51 [employer] CPT-27909 Postop F/U Visit 15:15:14 [employer] CPT-29616 Postop F/U Visit 14:41:43 CDT CPT-08695 Postop F/U Visit 15:47:46 CDT CPT-OV Office Visit 15:27:23 CDT CPT-OV Office Visit 17:20:34 CDT CPT-79709 Abx/Therapy Injection 15:05:57 CDT CPT-J1100 Decadron 8mg (Dexamethasone) 14:44:57 CDT CPT-J1040 Depo Medrol 80 mg (Methyl Prednisolone Acetate) 14:44: 57 CDT CPT-JTINJ Joint Injection 10:17:37 CDT CPT-64824 Administration 2+ single or combination vaccines inc oral 13:01:46 [employer] CPT-88745 Administration single or combination vaccine inc oral 13 :01:46 [employer] CPT-52266 Pneumovax 13:01:46 [employer] CPT-84753 Influenza split virus > age 3 13:01:46 [employer] CPT-69603 Administration single or combination vaccine inc oral 08 :56:49 CDT [facility]-13172 Tdap 08:56:49 CDT
--- OUTSIDE RECORDS SUMMARY | 2017-03-22 02:35 | XMS REPORT ---
Author Author [facility] [employer] [facility] Medical Staff Organization [employer] [facility] Address [address] [place] [id number] Phone [phone] Care Team Providers Care Special Educator Name Role Phone LENKA HUTSON, EUNICE PP [phone] Summary purpose TRANSITION OF CARE AUTO GENERATION Chief Complaint and Reason for Visit Admit Diagnosis 1 CHEST PAIN NOS Problem list No authorized problems tracked [...] tests and/or laboratory data RESULTS Radiology Results [id number]:14:00 MYOCARDIAL SPECT MULT PACs Image DATE OF EXAM: Oct 30 2014 [id number] SPECT MULTIPLE : RADIOLOGY REPORT DATE OF SERVICE:10/30/14 HISTORY: Chest pain EXERCISE STRESS AND RESTING MYOCARDIAL PERFUSION STUDY (TREADMILL CARDIOLITE STUDY) 1000 HOURS The patient initially is given 9.2 mCi of technetium 99m labeled Cardiolite intravenously. After a 75 minute delay, resting SPECT perfusion images are obtained. The patient is then exercised on a treadmill by the referring clinician. At maximal stress, the patient is given 31.4 mCi of technetium 99m labeled Cardiolite intravenously. After an 85 minute delay, gated stress SPECT perfusion images are obtained. On both the gated and nongated images, there is a minor perfusion defect along the anterior wall of the left ventricle. This is probably a technical artifact due to the patient's body habitus. Since the stress and resting images are identical, there is no evidence for any reversible ischemia. On the gated study, the left ventricular ejection fraction is calculated at 55% on today's study. There is normal segmental left ventricular cardiac wall motion and thickening present. The end-systolic volume is 47 cc with the end-diastolic volume being 103 cc. IMPRESSION: 1)There is a fixed perfusion defect along the anterior wall of the left ventricle present on both the stress and resting images which appears to represent a technical artifact due to the patient's body habitus. There is no evidence for any reversible ischemia. 2)The gated study has a left ventricular ejection fraction calculated at 55% which is normal. There is normal segmental left ventricular cardiac wall motion and thickening present. S MD SANDEE CotaP/pb10/30/2014 15:56:00 / 10/30/2014 18:41:22 cc:Dr. Aniceto Lindsay This document has been electronically Signed by: On: History of procedures Procedure Code Code Type Description Date Performed Performing Physician 93673 CPT-4 CARDIOVASCULAR STRESS TEST 10-30-2014 HARRY RANGEL 96526 CPT-4 HT MUSCLE IMAGE SPECT, MULT 10-30-2014 HARRY RANGEL A9500 CPT-4 TC99M SESTAMIBI 10-30-2014 HARRY RANGEL Functional status Functional Status Finding Observation Time IV Site Location LAC [id number]:35 IV Type peripheral 82-14-839411:35 IV Site Information discontinued 50-26-013834:35 IV Site Start Attmpt 2 times 69-57-667427:30 IV Site Acosta 20 62-31-292435:35 IV Site Appearance WNL 89-20-838270:35 IV Site Color clear 33-92-244757:35 IV Site Patent yes 13-73-694658:35 Dressing Changed yes 98-11-166843:35 Dressing Type gauze 64-22-002064:35 Nursing Note Has not received results yet. Will contact Dr. Fajardo's office. 17-96-063951:22 Vital signs Type Value Date Height 64inches :30 Weight 232LB :30 Social history No Social History or [...]
--- OUTSIDE RECORDS SUMMARY | 2017-03-22 02:37 | XMS REPORT | Clinical Summary ---
Author Author Admin, MARGRET Organization [facility] Address Unknown Phone Unavailable Allergies, Adverse Reactions, Alerts Allergy Name Reaction Description Start Date Severity Status Provider VALENTIN Critical Active Jillina Frazell BILINGUAL BRANCH MANAGER CHLORHEXIDINE GLUCONATE tongue and gums swollen Critical Active Hoa Otto RMA NORFLEX Rash Critical Active Jillina Frazell BILINGUAL BRANCH MANAGER TRAZODONE HCL sees things Critical Active [...] frequency ALLERGIC RHINITIS 477.9 Active Rodrigo Sarah BILINGUAL BRANCH MANAGER Allergic rhinitis, cause unspecified AFTERCARE FLW SURG [...] PhD Acute sinusitis, unspecified Asthma 493.90 Active Reum Elder Asthma, unspecified Flank pain 789.09 Resolved [...] MD Lumbago Cough 786.2 Active Jillina Tyrel BILINGUAL BRANCH MANAGER Cough 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 Jillina Frazellilian BILINGUAL BRANCH MANAGER 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 Anemia 285.9 Active Gab Padron MD Anemia, unspecified Conjunctivitis 372.30 Active Jillina Tyrel BILINGUAL BRANCH MANAGER Conjunctivitis, unspecified Sinusitis 473.9 Active Rodrigo Sarah BILINGUAL BRANCH MANAGER Unspecified sinusitis (chronic) FOOT PAIN, RIGHT [...] Lindsay MD PhD HEMATOCHEZIA ICD-578.1 Inactive Yolande Linsday MD PhD HEMORRHOIDS, INTERNAL, WITH BLEEDING ICD-455.2 [...] 1 po BID x 10 days CEFDINIR 88888943996 Active Jillina Frazell BILINGUAL BRANCH MANAGER Active FLUTICASONE PROPIONATE 50 MCG/ACT SUSP 1 to 2 sprays each nostril daily 04/21 FLUTICASONE PROPIONATE 40709466729 Active Jillina Frazell BILINGUAL BRANCH MANAGER Active POLYTRIM 51027-7.1 UNIT/ML-% SOLN 1 gtt to affected eye q3h x 7 days POLYMYXIN B-TRIMETHOPRIM 06224500225 Active Jillina Frazell BILINGUAL BRANCH MANAGER Active CHERATUSSIN AC 100-10 MG/5ML SYRP 1 tsp by mouth every 4 hours as needed for cough GUAIFENESIN-CODEINE 66909978694 Active Gab Padron MD Active CEFTIN 500 MG TAB 1 twice a day CEFUROXIME AXETIL 30777702200 No Longer Active Gab Padron MD Active AZITHROMYCIN 250 MG TABS 2 po qd x 1 day, then 1 po qd x 4 days AZITHROMYCIN 92382916549 No Longer Active Jillina Farshadzellilian ZAPATAN Active CLARITIN 10 MG TAB 1 tablet by mouth daily as needed for allergies LORATADINE 80229078436 Active Rodrigo Sarah APRN Active OXYCODONE HCL 5 MG ORAL CAPS 1 TAB PO Q HS OXYCODONE HCL 90845799747 No Longer Active Rodrigo Sarah APRN Active NIASPAN 500 MG ORAL CR-TABS 1 pill nightly x 1 week, then 2 pills nightly x 1 week, then 3 pills nightly x 1 week, then 4 pills nightly NIACIN (ANTIHYPERLIPIDEMIC) 36207928602 No Longer Active Rodrigo Sarah APRN Active NIACIN 500 MG TABS 1 pill by mouth nightly x 1 week, then 2 pills x 1 week, then 3 pills x 1 week, then 4 pills nightly - take after evening meal, with applesauce or an apple NIACIN 53047686321 No Longer Active Yolande Lindsay MD PhD Active FISH OIL 1000 MG CAPS 3 pills daily OMEGA-3 FATTY ACIDS 30664682320 Active Yolande Lindsay MD PhD Active TRIAMCINOLONE ACETONIDE 0.1 % CREA apply bid sparingly to rash TRIAMCINOLONE ACETONIDE 18572553374 Active Yolande Lindsay MD PhD Active FUROSEMIDE 20 MG TAB 1 tablet by mouth daily FUROSEMIDE 96315352200 Active Yolande Lindsay MD PhD Active LISINOPRIL 20 MG ORAL TABS 1 tab by mouth daily LISINOPRIL 29328170616 Active Yolande Lindsay MD PhD Active FUROSEMIDE 20 MG TABS 1 pill by mouth daily, for edema FUROSEMIDE 67694527108 No Longer Active Yolande Lindsay MD PhD Active ATORVASTATIN CALCIUM 10 MG TABS 1 pill by mouth daily, for cholesterol 09/06 ATORVASTATIN CALCIUM 39281539196 Active Yolande Lindsay MD PhD Active CALCIUM 600+D PLUS MINERALS 600-400 MG-UNIT ORAL CHEW 1 tab by mouth daily CALCIUM CARBONATE-VIT D-MIN 98357966367 No Longer Active Yolande Lindsay MD PhD Active CYCLOBENZAPRINE HCL 10 MG TABS 1 tablet by mouth three times daily as needed for muscle spasm/pain CYCLOBENZAPRINE HCL 07039285012 Active Yolande Lindsay MD PhD Active ONDANSETRON 4 MG TBDP 1 q4h PRN nausea ONDANSETRON 64124313066 Active Yolande Lindsay MD PhD Active ADULT ASPIRIN EC LOW STRENGTH 81 MG TBEC Take 1 tablet by mouth daily 2014 ASPIRIN 32141510514 No Longer Active Yolande Lindsay MD PhD Active ZOFRAN ODT 4 MG TBDP 1 pill dissolved by mouth every 4 hours if needed for nausea ONDANSETRON 27968003205 No Longer Active Yolande Lindsay MD PhD Active CEFTIN 500 MG TAB 1 twice a day CEFUROXIME AXETIL 11951135528 No Longer Active Yolande Lindsay MD PhD Active ALBUTEROL SULFATE 0.083 % NEBU SOLN one vial per nebulizer every 4-6 hours as needed ALBUTEROL SULFATE 50056342854 No Longer Active Alexis Ordaz MD Active DOXYCYCLINE HYCLATE 100 MG CAP 1 cap by mouth twice daily DOXYCYCLINE HYCLATE 03711502160 No Longer Active Yolande Lindsay MD PhD Active CYCLOBENZAPRINE HCL 10 MG TABS 1/2 - 1 tab by mouth three times daily if needed for spasms/pain CYCLOBENZAPRINE HCL 18602098870 No Longer Active Yolande Lindsay MD PhD Active TRILEPTAL 600 MG TABS Take one 1/2 tablet in Am and 1 tablet at night OXCARBAZEPINE 26011212901 Active Yolande Lindsay MD PhD Active AZITHROMYCIN 250 MG TABS 2 pills on day 1, then 1 pill daily x 4 days AZITHROMYCIN 92388028383 No Longer Active Yolande Lindsay MD PhD Active XOPENEX 1.25 MG/3ML NEBU 1 neb every 4 hours if needed for cough/congestion LEVALBUTEROL HCL 39868715096 No Longer Active Yolande Lindsay MD PhD Active DOXYCYCLINE HYCLATE 100 MG TAB 1 tab twice a day for 14 days 2013 DOXYCYCLINE HYCLATE 78001735935 No Longer Active Yolande Lindsay MD PhD Active LEVOTHYROXINE SODIUM 75 MCG TABS Take 1 tab daily LEVOTHYROXINE SODIUM 90669023455 Active Yolande Lindsay MD PhD Active PREVACID 30 MG CPDR Take 1 tablet by mouth daily-PRN LANSOPRAZOLE 09397437128 No Longer Active Yolande Lindsay MD PhD Active PA VITAMIN D-3 2000 UNIT CAPS 1 CAP PO DAILY CHOLECALCIFEROL 36546259185 No Longer Active Yolande Lindsay MD PhD Active CEFDINIR 300 MG CAPS by mouth twice a day CEFDINIR 01700227144 No Longer Active Gab Padron MD Active TOPAMAX 50 MG TABS 1 PO twice daily TOPIRAMATE 92657003840 Active Yolande Lindsay MD PhD Active AZITHROMYCIN 250 MG TABS 2 po qd x 1 day, then 1 po qd x 4 days AZITHROMYCIN 74871579114 No Longer Active Yolande Lindsay MD PhD Active DICLOFENAC SODIUM 75 MG TBEC 1 tablet by q 12 hours PRN headaches DICLOFENAC SODIUM 79456103142 No Longer Active Yolande Lindsay MD PhD Active FLONASE 50 MCG/ACT SUSP 1 spray each nostril am and hs FLUTICASONE PROPIONATE 06444297914 No Longer Active Todd Callaway MD Active ANUSOL-HC 25 MG SUPPOSITORY 1 rectally twice a day as needed for hemorrhoids HYDROCORTISONE JAYDEN (RECTAL) 48208121452 No Longer Active Yolande Lindsay MD PhD Active ANUSOL-HC 25 MG SUPPOSITORY 1 suppository rectally each evening as needed for anal fissure HYDROCORTISONE JAYDEN (RECTAL) 72490404956 No Longer Active LONNIE Iglesias Active VALIUM 5 MG TAB 1 po 30 minutes prior to your MRI DIAZEPAM 59769733529 No Longer Active LONNIE Iglesias Active METHOCARBAMOL 750 MG TABS 1 PO QID PRN METHOCARBAMOL 11989673000 No Longer Active Daphne Rashard BILINGUAL BRANCH MANAGER Active NITROSTAT 0.4 MG SUBL as directed NITROGLYCERIN 25037797380 No Longer Active Rodrigo Sarah BILINGUAL BRANCH MANAGER Active ROBAXIN-750 750 MG TABS 2 four times a day for 3 days as needed for muscle spasm, then 1 four times a day as needed METHOCARBAMOL 02630308397 No Longer Active Rodrigo Sarah APRN Active HYDROCODONE-ACETAMINOPHEN 5-325 MG TABS 1 q 4-6 hrs prn HYDROCODONE-ACETAMINOPHEN 15081782302 No Longer Active Silvestrellina Tyrel ZAPATAN Active VERAPAMIL HCL CR 180 MG CR-TABS TAKE 1 TAB DAILY VERAPAMIL HCL 83149274654 No Longer Active Yolande Lindsay MD PhD Active BACTRIM DS 800-160 MG TAB 1 tab by mouth twice daily TRIMETHOPRIM-SULFAMETHOXAZOLE 30282638265 No Longer Active Yolande Lindsay MD PhD Active NEXIUM 40 MG PACK 1 by mouth daily ESOMEPRAZOLE MAGNESIUM 41693131757 No Longer Active Des Hines MD Active EPIPEN 2-CHARLETTE 0.3 MG/0.3ML OMARI as need for allergic reaction EPINEPHRINE 87894167106 Active Yolande Lindsay MD PhD Active NEXIUM 40 MG CPDR 1 PO Q D DAY ESOMEPRAZOLE MAGNESIUM 51985166937 No Longer Active Sadia Perry RN Active NEXIUM 40 MG PACK 1 by mouth daily NEXIUM 40 MG PACK ESOMEPRAZOLE MAGNESIUM Inactive VERAPAMIL HCL CR 180 MG CR-TABS TAKE 1 TAB DAILY VERAPAMIL HCL CR 180 MG CR-TABS VERAPAMIL HCL Inactive HYDROCODONE-ACETAMINOPHEN 5-325 MG TABS 1 q 4-6 hrs prn HYDROCODONE-ACETAMINOPHEN 5-325 MG TABS 087212 HYDROCODONE-ACETAMINOPHEN Inactive ROBAXIN-750 750 MG TABS 2 four times a day for 3 days as needed for muscle spasm, then 1 four times a day as needed ROBAXIN-750 750 MG TABS 609941 METHOCARBAMOL Inactive NITROSTAT 0.4 MG SUBL as directed NITROSTAT 0.4 MG SUBL NITROGLYCERIN Inactive METHOCARBAMOL 750 MG TABS 1 PO QID PRN METHOCARBAMOL 750 MG TABS 277303 METHOCARBAMOL Inactive VALIUM 5 MG TAB 1 po 30 minutes prior to your MRI VALIUM 5 MG TAB 708072 DIAZEPAM Inactive ANUSOL-HC 25 MG SUPPOSITORY 1 suppository rectally each evening as needed for anal fissure ANUSOL-HC 25 MG SUPPOSITORY 6550780 HYDROCORTISONE JAYDEN (RECTAL) Inactive ANUSOL-HC 25 MG SUPPOSITORY 1 rectally twice a day as needed for hemorrhoids ANUSOL-HC 25 MG SUPPOSITORY 0638961 HYDROCORTISONE JAYDEN (RECTAL) Inactive FLONASE 50 MCG/ACT SUSP 1 spray each nostril am and hs FLONASE 50 MCG/ACT SUSP FLUTICASONE PROPIONATE Inactive DICLOFENAC SODIUM 75 MG TBEC 1 tablet by q 12 hours PRN headaches DICLOFENAC SODIUM 75 MG TBEC 514301 DICLOFENAC SODIUM Inactive PA VITAMIN D-3 2000 UNIT CAPS 1 CAP PO DAILY PA VITAMIN D-3 2000 UNIT CAPS CHOLECALCIFEROL Inactive PREVACID 30 MG CPDR Take 1 tablet by mouth daily-PRN PREVACID 30 MG CPDR 953150 LANSOPRAZOLE Inactive DOXYCYCLINE HYCLATE 100 MG TAB 1 tab twice a day for 14 days 2013 DOXYCYCLINE HYCLATE 100 MG TAB 6965829 DOXYCYCLINE HYCLATE Inactive XOPENEX 1.25 MG/3ML NEBU 1 neb every 4 hours if needed for cough/congestion XOPENEX 1.25 MG/3ML NEBU 522950 LEVALBUTEROL HCL Inactive CYCLOBENZAPRINE HCL 10 MG TABS 1/2 - 1 tab by mouth three times daily if needed for spasms/pain CYCLOBENZAPRINE HCL 10 MG TABS 903626 CYCLOBENZAPRINE HCL Inactive ALBUTEROL SULFATE 0.083 % NEBMarcia SOLSalty one vial per nebulizer every 4-6 hours as needed ALBUTEROL SULFATE 0.083 % [facility] SOLN 042326 ALBUTEROL SULFATE Inactive CEFTIN 500 MG TAB 1 twice a day CEFTIN 500 MG TAB 411655 CEFUROXIME AXETIL Inactive ZOFRAN ODT 4 MG TBDP 1 pill dissolved by mouth every 4 hours if needed for nausea ZOFRAN ODT 4 MG TBDP 873170 ONDANSETRON Inactive ADULT ASPIRIN EC LOW STRENGTH 81 MG TBEC Take 1 tablet by mouth daily 2014 ADULT ASPIRIN EC LOW STRENGTH 81 MG TBEC 069949 ASPIRIN Inactive CALCIUM 600+D PLUS MINERALS 600-400 [...] or an apple NIACIN 500 MG TABS 028199 NIACIN Inactive NIASPAN 500 MG ORAL CR-TABS 1 pill nightly x 1 week, then 2 pills nightly x 1 week, then 3 pills nightly x 1 week, then 4 pills nightly NIASPAN 500 MG ORAL CR-TABS NIACIN (ANTIHYPERLIPIDEMIC) Inactive OXYCODONE HCL 5 MG ORAL CAPS 1 TAB PO Q HS OXYCODONE HCL 5 MG ORAL CAPS 3940709 OXYCODONE HCL Inactive BACTRIM DS 800-160 MG TAB 1 tab by mouth twice daily BACTRIM DS 800-160 MG TAB 309546 TRIMETHOPRIM-SULFAMETHOXAZOLE Inactive AZITHROMYCIN 250 MG TABS 2 po qd x 1 day, then 1 po qd x 4 days AZITHROMYCIN 250 MG TABS 9085005 AZITHROMYCIN Inactive CEFDINIR 300 MG CAPS by mouth twice a day CEFDINIR 300 MG CAPS 378691 CEFDINIR Inactive AZITHROMYCIN 250 MG TABS 2 pills on day 1, then 1 pill daily x 4 days AZITHROMYCIN 250 MG TABS 9788212 AZITHROMYCIN Inactive DOXYCYCLINE HYCLATE 100 MG CAP 1 cap by mouth twice daily DOXYCYCLINE HYCLATE 100 MG CAP 9440668 DOXYCYCLINE HYCLATE Inactive FUROSEMIDE 20 MG TABS 1 pill by mouth daily, for edema FUROSEMIDE 20 MG TABS 252125 FUROSEMIDE Inactive AZITHROMYCIN 250 MG TABS 2 po qd x 1 day, then 1 po qd x 4 days AZITHROMYCIN 250 MG TABS 5873152 AZITHROMYCIN Inactive CEFTIN 500 MG TAB 1 twice a day CEFTIN 500 MG TAB 259317 CEFUROXIME AXETIL Inactive Immunizations Vaccine Administration Date Value Standard Description Seasonal influenza vaccine, injectable, containing preservative, for > 3 years old (Afluria, FluLaval, Fluzone, Fluvirin, Fluarix, Agriflu(>=18 yo)) Fluzone (>3 yrs.) [MTJ171] Influenza, seasonal, injectable influenza immunization (Flu Vax) has been administered Influenza - Unspecified Formulation [CVX88] influenza virus vaccine, unspecified formulation Seasonal influenza vaccine, injectable, containing preservative, for > 3 years old (Afluria, FluLaval, Fluzone, Fluvirin, Fluarix, Agriflu(>=18 yo)) Fluzone (>3 yrs.) [AEL071] Influenza, seasonal, injectable pneumococcal immunization administered Pneumovax 23 [CVX33] pneumococcal polysaccharide vaccine, 23 valent dT (Diphtheria and Tetanus) booster given given Td(adult) unspecified formulation Boostrix (Tetanus toxoid, reduced diphtheria toxoid and acellular pertussis vaccine, adsorbed), booster Boostrix [FFA057] tetanus toxoid, reduced diphtheria toxoid, and acellular [...] Panel - Chemistry sodium, serum 145 mmol/L [phone]/06/22 potassium, serum 3.9 mmol/L 3.5-5.2 chloride, serum 109 mmol/L 98-107 carbon dioxide, venous blood 23.4 mmol/L 21.0-32.0 blood glucose 92 mg/dL 65-110 calcium, serum 8.2 mg/dL 8.5-10.1 urea nitrogen, blood 24 mg/dL 7-18 creatinine, serum 1.30 mg/dL 0.60-1.30 Lab Report: [facility] Lipid and Inlammation Panel /21355 - Chemistry cholesterol, serum 198 mg/dL 424-303 8227/04/30 HDL cholesterol, serum 65 mg/dL > OR=46 triglyceride, serum, fasting 82 mg/dL LDL cholesterol, serum 117 mg/dL cholesterol/HDL ratio, serum 3.0 calc < OR=5.0 cholesterol, serum 148 mg/dL 857-107 9783/09/02 HDL cholesterol, serum 55 mg/dL > OR=46 [...] (L) - Chemistry sodium, serum 145 mmol/L 176-866 1692/09/02 potassium, serum 4.6 mmol/L 3.5-5.2 chloride, serum [...] 51 mg/dL 30-200 cholesterol, serum 173 mg/dL 412-857 0553/04/28 HDL cholesterol, serum 63 mg/dL 32-96 LDL [...] mg/dL Encounters Code Encounter Date Provider Facility CPT-69466 Level 3 Est. Patient 11:02:19 INCIDENT HANDLER Gab Padron MD [facility] CPT-34943 Level 4 Est. Patient 22:24:31 INCIDENT HANDLER Gab Padron MD [facility] CPT-88948 Level 3 Est. Patient 18:33:46 INCIDENT HANDLER Gab Padron MD [facility] CPT-19851 Level 3 Est. Patient 16:19:11 CDT Yolande Lindsay MD PhD [facility] CPT-91145 Level 3 Est. Patient 18:59:14 CDT Yolande Lindsay MD [facility] CPT-58346 Level 4 Est. Patient 21:29:26 CDT Yolande Lindsay MD [facility]-22696 Level 3 Est. Patient 07:37:45 CDT Yolande Lindsay MD [facility] CPT-02839 Level 3 Est. Patient 17:03:46 CDT Yolande Lindsay MD [facility]-28975 Level 4 Est. Patient 20:02:13 INCIDENT HANDLER Yolande Lindsay MD [facility] CPT-76036 Level 3 Est. Patient 16:02:07 INCIDENT HANDLER Alexis Ordaz MD [facility] CPT-43463 Level 3 Est. Patient 12:41:24 INCIDENT HANDLER Yolande Lindsay MD PhD [facility] CPT-09730 Level 3 Est. Patient 15:41:20 INCIDENT HANDLER Yolande Lindsay MD [facility] CPT-30402 Level 3 Est. Patient 13:20:02 INCIDENT HANDLER Yolande Lindsay MD [facility] CPT-31103 Level 3 Est. Patient 15:00:38 CDT Jared Og MD [facility]-11291 Level 3 Est. Patient 10:22:32 CDT Yolande Lindsay MD [facility]-71831 Level 3 Est. Patient 17:12:58 CDT Yolande Lindsay MD [facility]-58508 Level 4 Est. Patient 13:30:58 CDT Yolande Lindsay MD [facility]-77839 Level 4 New Patient 09:02:42 CDT Jared Og MD [facility]-75148 Level 3 Est. Patient 08:19:07 CDT Yolande Lindsay MD [facility]-54408 Level 3 Est. Patient 12:00:13 INCIDENT HANDLER [id number] Level 3 Est. Patient 16:15:23 INCIDENT HANDLER Yolande Lindsay MD [facility]-15519 Level 2 Est. Patient 19:47:15 CDT Yolande Lindsay MD [facility]-43865 Level 3 Est. Patient 21:38:31 CDT Yolande Lindsay MD [facility]-79228 Level 3 Est. Patient 10:25:12 CDT Adiel PERAZA [id number] Level 4 Est. Patient 10:51:58 CDT Yolande Lindsay MD [facility]-46938 Level 3 Est. Patient 14:04:55 INCIDENT HANDLER Rodrigo Sarah [facility]-65363 Level 3 Est. Patient 10:46:35 INCIDENT HANDLER Rodrigo Sarah [facility]-88084 Level 3 Est. Patient 14:24:37 INCIDENT HANDLER Yolande Lindsay MD PhD [facility] CPT-72659 Level 3 Est. Patient 17:41:58 INCIDENT HANDLER Yolande Lindsay MD [facility] CPT-81083 Level 2 Est. Patient 22:01:41 INCIDENT HANDLER Rodrigo Sarah [facility] CPT-10085 Level 2 Est. Patient 22:01:11 INCIDENT HANDLER Rodrigo Sarah [facility] CPT-44562 Level 3 Est. Patient 10:12:29 INCIDENT HANDLER Rodrigo Sarah [facility] CPT-44397 Level 3 Est. Patient 11:05:44 CDT Alexis Ordaz MD [facility] CPT-92123 Level 3 Est. Patient 14:57:20 CDT Yolande Lindsay MD [facility] CPT-25524 Level 3 Est. Patient 14:40:57 CDT Yolande Lindsay MD [facility] CPT-07346 Level 3 Est. Patient 20:55:40 CDT Yolande Lindsay MD [facility] CPT-95789 Level 3 Est. Patient 12:42:38 INCIDENT HANDLER Yolande Lindsay MD [facility] CPT-27006 Level 3 Est. Patient 11:54:49 INCIDENT HANDLER Des Hines MD [facility] CPT-11153 Level 3 Est. Patient 17:06:38 CDT Dewayne PERAZA [facility] Procedures Code Procedure Name Date Entry Date Standard Description [id number] Event Monitor - MC Transmission 09:12:32 CDT 08/06 [id number] Event Monitor - MC review and interp 09:12:32 CDT [id number] Event Monitor - MC recording 09:12:32 CDT CPT-81654 EKG Trac and Interp 16:50:22 CDT CPT-J1030 Depo Medrol 40 mg (Methyl Prednisolone Acetate) 17:05: 54 CDT CPT-J1100 Decadron 4mg (Dexamethasone) 17:05:54 CDT CPT-72296 Abx/Therapy Injection 17:05:54 CDT CPT-J1100 Decadron 4mg (Dexamethasone) 16:55:28 CDT CPT-J1030 Depo Medrol 40 mg (Methyl Prednisolone Acetate) 16:55: 28 CDT CPT-44665 Ankle Complete - Min 3V 15:58:50 CDT CPT-74458 Knee 3V 15:58:50 CDT CPT-73433 Hip comp min 2V 15:58:50 CDT CPT-J2270 Morphine Sulfate 10 mg 14:25:44 INCIDENT HANDLER CPT-J2550 Phenergan 12.5 mg (Promethazine) 14:25:44 INCIDENT HANDLER CPT-29436 Abx/Therapy Injection 14:25:44 INCIDENT HANDLER CPT-J2550 Phenergan 12.5 mg (Promethazine) 14:08:03 INCIDENT HANDLER CPT-J2270 Morphine Sulfate 10 mg 14:08:03 INCIDENT HANDLER CPT-37078 Bladder Scan 15:00:38 CDT CPT-TCMM Transitional Care Mgmt-Moderate 09:52:22 CDT CPT-J1030 Depo Medrol 40 mg (Methyl Prednisolone Acetate) 10:55: 18 CDT CPT-J1100 Decadron 4mg (Dexamethasone) 10:55:18 CDT CPT-66759 Abx/Therapy Injection 10:55:18 CDT CPT-J1030 Depo Medrol 40 mg (Methyl Prednisolone Acetate) 10:22: 32 CDT CPT-J1100 Decadron 4mg (Dexamethasone) 10:22:32 CDT CPT-02815 Postop F/U Visit 14:37:13 CDT CPT-08895 Ankle Complete - Min 3V 17:11:58 CDT CPT-63156 Foot comp min 3V 17:11:58 CDT CPT-72797 Bladder Scan 09:56:58 CDT CPT-00241 Postop F/U Visit 09:56:58 CDT CPT-21696 Cystoscopy 09:02:42 CDT CPT-59553 Bladder Scan 09:02:42 CDT CPT-37925 Abd single AP View 16:00:35 CDT CPT-66060 Administration single or combination vaccine inc oral 10 :15:43 CDT CPT-39263 Influenza split virus > age 3 10:15:43 CDT CPT-97393 Nail Avulsion 09:24:57 CDT CPT-OV Office Visit 11:15:41 CDT CPT-89441 Abx/Therapy Injection 10:51:30 CDT CPT-J3301 Kenalog 40 mg (Triamcinolone Acetonide) 10:25:12 CDT CPT-J1100 Decadron 4mg (Dexamethasone) 10:25:12 CDT CPT-47425 Anoscopy diagnostic 10:36:12 CDT CPT-OV Office Visit 15:34:31 CDT CPT-34150 Abx/Therapy Injection 08:21:15 INCIDENT HANDLER CPT-J1885 Toradol 60 mg (Ketorolac) 10:46:35 INCIDENT HANDLER CPT-OV Office Visit 19:51:16 INCIDENT HANDLER CPT-70887 Spec Collection and Handling Fee 14:34:18 INCIDENT HANDLER CPT-PV Prev. Care Visit 14:19:18 INCIDENT HANDLER CPT-68177 Postop F/U Visit 14:47:51 INCIDENT HANDLER CPT-14028 Postop F/U Visit 15:15:14 INCIDENT HANDLER CPT-98730 Postop F/U Visit 14:41:43 CDT CPT-27242 Postop F/U Visit 15:47:46 CDT CPT-OV Office Visit 15:27:23 CDT CPT-OV Office Visit 17:20:34 CDT CPT-32860 Abx/Therapy Injection 15:05:57 CDT CPT-J1100 Decadron 8mg (Dexamethasone) 14:44:57 CDT CPT-J1040 Depo Medrol 80 mg (Methyl Prednisolone Acetate) 14:44: 57 CDT CPT-JTINJ Joint Injection 10:17:37 CDT CPT-46763 Administration 2+ single or combination vaccines inc oral 13:01:46 INCIDENT HANDLER CPT-18436 Administration single or combination vaccine inc oral 13 :01:46 INCIDENT HANDLER CPT-42576 Pneumovax 13:01:46 INCIDENT HANDLER CPT-51288 Influenza split virus > age 3 13:01:46 INCIDENT HANDLER CPT-69332 Administration single or combination vaccine inc oral 08 :56:49 CDT CPT-89848 Tdap 08:56:49 CDT
--- OUTSIDE RECORDS SUMMARY | 2017-03-22 02:40 | XMS REPORT | Clinical Summary ---
Author Author Admin, MARGRET Organization hike Address Unknown Phone Unavailable Allergies, Adverse Reactions, Alerts Allergy Name Reaction Description Start Date Severity Status Provider VALENTIN Critical Active Rodrigo Montemayorl [employer] CHLORHEXIDINE GLUCONATE tongue and gums swollen Critical Active Hoa Kabaford RMA NORFLEX Rash Critical Active Rowenaina Frazell [employer] TRAZODONE HCL sees things Critical Active Dewayne [...] hx of 412 Active Hoa Otto [facility] Old myocardial infarction Pelvic pain 789.09 Active Yolande Lindsay MD PhD Abdominal pain, other specified site; multiple sites Edema 782.3 Active Yolande Lindasy MD PhD Edema Rash 782.1 Active Yolande Lindsay MD PhD Rash and other nonspecific skin eruption Back pain, lumbar 724.2 Active Gab Padron MD Lumbago Cough 786.2 Active Jillina Tyrel [employer] Cough 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 Jillina Frazellilian ZAPATAN 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 Anemia 285.9 Active Gab Padron MD Anemia, unspecified Conjunctivitis 372.30 Active Jillnacho Sarah APRN Conjunctivitis, unspecified Sinusitis 473.9 Active Jillina Frazell [employer] Unspecified sinusitis (chronic) Nonspecific syndrome suggestive of viral illness 079.99 Active Jillina Siml [employer] Unspecified viral infection Laryngitis 464.00 Active Jillina Farshadzell [employer] Acute laryngitis without mention of obstruction Abdominal [...] Abdominal pain, generalized 789.07 Active Silvestrellina Siml [employer] Abdominal pain, generalized Back pain, thoracic region, left 724.1 Active Jillina Farshadzell [employer] Pain in thoracic spine Abdominal pain, left [...] MD PhD CHEST PAIN, UNSPECIFIED ICD-786.50 Inactive Yoalnde Lindsay MD PhD HEADACHE ICD-784.0 Inactive Yolande [...] every 6 hrs prn pain TRAMADOL HCL 94999372401 Active Gab Padron MD Active PREDNISONE 20 MG TAB 2 tabs daily for 3 days, 1 tab daily for 3 days, 1/2 tab daily for 2 days PREDNISONE 12167784528 No Longer Active Gab Padron MD Active ZOFRAN ODT 4 MG TBDP 1 po q6hr PRN Nausea ONDANSETRON 67302785979 Active Gab Padron MD Active IBUPROFEN 600 MG TAB 1 tablet by mouth every 6 hours for 7 days, then 1 tablet every 6 hours as needed. Take with food IBUPROFEN 47524089076 Active Jillina Frazell [employer] Active BACTRIM DS 800-160 MG TAB 1 tab by mouth twice daily TRIMETHOPRIM-SULFAMETHOXAZOLE 83328072562 No Longer Active Gab Padron MD Active ADVAIR DISKUS 250-50 MCG/DOSE AEPB 1 puff BID FLUTICASONE- SALMETEROL 15056077130 Active Jillnacho Sarah [employer] Active LEVOTHYROXINE SODIUM 75 MCG TABS Take 1 tab daily LEVOTHYROXINE SODIUM 42320076145 No Longer Active Mariana Cuadra [facility] Active SYNTHROID 88 MCG ORAL TABS Take one by mouth daily LEVOTHYROXINE SODIUM 12895544499 Active Gab Padron MD Active CHERATUSSIN AC 100-10 MG/5ML SYRP 1 tsp by mouth every 4 hours as needed for cough GUAIFENESIN-CODEINE 28005452883 No Longer Active Gab Padron MD Active POLYTRIM 90902-9.1 UNIT/ML-% SOLN 1 gtt to affected eye q3h x 7 days POLYMYXIN B-TRIMETHOPRIM 56622588229 No Longer Active Gab Padron MD Active FLUTICASONE PROPIONATE 50 MCG/ACT SUSP 1 to 2 sprays each nostril daily 04/21 FLUTICASONE PROPIONATE 59619982198 No Longer Active Gab Padron MD Active TRILEPTAL 600 MG TABS Take one 1 tablet in Am and 1 tablet at night OXCARBAZEPINE 31835926262 Active Gab Padron MD Active CEFDINIR 300 MG CAPS 1 po BID x 10 days CEFDINIR 63535952004 No Longer Active Rodrigo Sarah APRN Active CEFTIN 500 MG TAB 1 twice a day CEFUROXIME AXETIL 13066227979 No Longer Active Gab Padron MD Active AZITHROMYCIN 250 MG TABS 2 po qd x 1 day, then 1 po qd x 4 days AZITHROMYCIN 55529003215 No Longer Active Rodrigo Sarah APRN Active CLARITIN 10 MG TAB 1 tablet by mouth daily as needed for allergies LORATADINE 70689294454 Active Rodrigo Sarah APRN Active OXYCODONE HCL 5 MG ORAL CAPS 1 TAB PO Q HS OXYCODONE HCL 48514393772 No Longer Active Rodrigo Sarah APRN Active NIASPAN 500 MG ORAL CR-TABS 1 pill nightly x 1 week, then 2 pills nightly x 1 week, then 3 pills nightly x 1 week, then 4 pills nightly NIACIN (ANTIHYPERLIPIDEMIC) 92062412322 No Longer Active Rodrigo Sarah APRN Active NIACIN 500 MG TABS 1 pill by mouth nightly x 1 week, then 2 pills x 1 week, then 3 pills x 1 week, then 4 pills nightly - take after evening meal, with applesauce or an apple NIACIN 23026803408 No Longer Active Yolande Lindsay MD PhD Active FISH OIL 1000 MG CAPS 3 pills daily OMEGA-3 FATTY ACIDS 89063134015 Active Yolande Lindsay MD PhD Active TRIAMCINOLONE ACETONIDE 0.1 % CREA apply bid sparingly to rash TRIAMCINOLONE ACETONIDE 01785293273 Active Yolande Lindsay MD PhD Active FUROSEMIDE 20 MG TAB 1 tablet by mouth daily FUROSEMIDE 11503078457 Active Tisha Lambert APRN Active LISINOPRIL 20 MG ORAL TABS 1 tab by mouth daily LISINOPRIL 29093769647 Active Tisha Lambert APRN Active FUROSEMIDE 20 MG TABS 1 pill by mouth daily, for edema FUROSEMIDE 04509701775 No Longer Active Yolande Lindsay MD PhD Active ATORVASTATIN CALCIUM 10 MG TABS 1 pill by mouth daily, for cholesterol 09/06 ATORVASTATIN CALCIUM 02056639755 Active Gab Padron MD Active CALCIUM 600+D PLUS MINERALS 600-400 MG-UNIT ORAL CHEW 1 tab by mouth daily CALCIUM CARBONATE-VIT D-MIN 85765095430 No Longer Active Yolande Lindsay MD PhD Active CYCLOBENZAPRINE HCL 10 MG TABS 1 tablet by mouth three times daily as needed for muscle spasm/pain CYCLOBENZAPRINE HCL 90416563631 Active Yolande Lindsay MD PhD Active ONDANSETRON 4 MG TBDP 1 q4h PRN nausea ONDANSETRON 09451340614 Active Yolande Lindsay MD PhD Active ADULT ASPIRIN EC LOW STRENGTH 81 MG TBEC Take 1 tablet by mouth daily 2014 ASPIRIN 11128519474 No Longer Active Yolande Lindsay MD PhD Active ZOFRAN ODT 4 MG TBDP 1 pill dissolved by mouth every 4 hours if needed for nausea ONDANSETRON 47387764672 No Longer Active Yolande Lindsay MD PhD Active CEFTIN 500 MG TAB 1 twice a day CEFUROXIME AXETIL 87338990124 No Longer Active Yolande Lindsay MD PhD Active ALBUTEROL SULFATE 0.083 % NEBU SOLN one vial per nebulizer every 4-6 hours as needed ALBUTEROL SULFATE 56720985088 No Longer Active Alexis Ordaz MD Active DOXYCYCLINE HYCLATE 100 MG CAP 1 cap by mouth twice daily DOXYCYCLINE HYCLATE 43828454609 No Longer Active Yolande Lindsay MD PhD Active CYCLOBENZAPRINE HCL 10 MG TABS 1/2 - 1 tab by mouth three times daily if needed for spasms/pain CYCLOBENZAPRINE HCL 83690866319 No Longer Active Yolande Lindsay MD PhD Active AZITHROMYCIN 250 MG TABS 2 pills on day 1, then 1 pill daily x 4 days AZITHROMYCIN 29133742182 No Longer Active Yolande Lindsay MD PhD Active XOPENEX 1.25 MG/3ML NEBU 1 neb every 4 hours if needed for cough/congestion LEVALBUTEROL HCL 19889997560 No Longer Active Yolande Lindsay MD PhD Active DOXYCYCLINE HYCLATE 100 MG TAB 1 tab twice a day for 14 days 2013 DOXYCYCLINE HYCLATE 83834643951 No Longer Active Yolande Lindsay MD PhD Active PREVACID 30 MG CPDR Take 1 tablet by mouth daily-PRN LANSOPRAZOLE 70687708314 No Longer Active Yolande Lindsay MD PhD Active PA VITAMIN D-3 2000 UNIT CAPS 1 CAP PO DAILY CHOLECALCIFEROL 47279523174 No Longer Active Yolande Lindsay MD PhD Active CEFDINIR 300 MG CAPS by mouth twice a day CEFDINIR 45229528786 No Longer Active Gab Padron MD Active TOPAMAX 50 MG TABS 1 PO twice daily TOPIRAMATE 92240962989 Active Yolande Lindsay MD PhD Active AZITHROMYCIN 250 MG TABS 2 po qd x 1 day, then 1 po qd x 4 days AZITHROMYCIN 31019710356 No Longer Active Yolande Lindsay MD PhD Active DICLOFENAC SODIUM 75 MG TBEC 1 tablet by q 12 hours PRN headaches DICLOFENAC SODIUM 77990439373 No Longer Active Yolande Lindsay MD PhD Active FLONASE 50 MCG/ACT SUSP 1 spray each nostril am and hs FLUTICASONE PROPIONATE 79260556816 No Longer Active Todd Callaway MD Active ANUSOL-HC 25 MG SUPPOSITORY 1 rectally twice a day as needed for hemorrhoids HYDROCORTISONE JAYDEN (RECTAL) 91897924266 No Longer Active Yolande Lindsay MD PhD Active ANUSOL-HC 25 MG SUPPOSITORY 1 suppository rectally each evening as needed for anal fissure HYDROCORTISONE JAYDEN (RECTAL) 22151500016 No Longer Active Bozena Coleman, RMA Active VALIUM 5 MG TAB 1 po 30 minutes prior to your MRI DIAZEPAM 33507320471 No Longer Active Bozena JaredEDELMIRAFeliciano Active METHOCARBAMOL 750 MG TABS 1 PO QID PRN METHOCARBAMOL 82148601654 No Longer Active Daphne Wetzel [employer] Active NITROSTAT 0.4 MG SUBL as directed NITROGLYCERIN 15773422431 No Longer Active Rodrigo Sarah [employer] Active ROBAXIN-750 750 MG TABS 2 four times a day for 3 days as needed for muscle spasm, then 1 four times a day as needed METHOCARBAMOL 70402876693 No Longer Active Rodrigo Sarah APRN Active HYDROCODONE-ACETAMINOPHEN 5-325 MG TABS 1 q 4-6 hrs prn HYDROCODONE-ACETAMINOPHEN 37499727285 No Longer Active Rodrigo Sarah APRN Active VERAPAMIL HCL CR 180 MG CR-TABS TAKE 1 TAB DAILY VERAPAMIL HCL 78454261384 No Longer Active Yolande Lindsay MD PhD Active BACTRIM DS 800-160 MG TAB 1 tab by mouth twice daily TRIMETHOPRIM-SULFAMETHOXAZOLE 76485488956 No Longer Active Yolande Lindsay MD PhD Active NEXIUM 40 MG PACK 1 by mouth daily ESOMEPRAZOLE MAGNESIUM 07928432358 No Longer Active Des Hines MD Active EPIPEN 2-CHARLETTE 0.3 MG/0.3ML OMARI as need for allergic reaction EPINEPHRINE 23753807074 Active Yolande Lindsay MD PhD Active NEXIUM 40 MG CPDR 1 PO Q D DAY ESOMEPRAZOLE MAGNESIUM 08735961231 No Longer Active Sadia Perry RN Active NEXIUM 40 MG PACK 1 by mouth daily NEXIUM 40 MG PACK ESOMEPRAZOLE MAGNESIUM Inactive VERAPAMIL HCL CR 180 MG CR-TABS TAKE 1 TAB DAILY VERAPAMIL HCL CR 180 MG CR-TABS VERAPAMIL HCL Inactive HYDROCODONE-ACETAMINOPHEN 5-325 MG TABS 1 q 4-6 hrs prn HYDROCODONE-ACETAMINOPHEN 5-325 MG TABS 058926 HYDROCODONE-ACETAMINOPHEN Inactive ROBAXIN-750 750 MG TABS 2 four times a day for 3 days as needed for muscle spasm, then 1 four times a day as needed ROBAXIN-750 750 MG TABS 363331 METHOCARBAMOL Inactive NITROSTAT 0.4 MG SUBL as directed NITROSTAT 0.4 MG SUBL 848540 NITROGLYCERIN Inactive METHOCARBAMOL 750 MG TABS 1 PO QID PRN METHOCARBAMOL 750 MG TABS 116880 METHOCARBAMOL Inactive VALIUM 5 MG TAB 1 po 30 minutes prior to your MRI VALIUM 5 MG TAB 860657 DIAZEPAM Inactive ANUSOL-HC 25 MG SUPPOSITORY 1 suppository rectally each evening as needed for anal fissure ANUSOL-HC 25 MG SUPPOSITORY 7552339 HYDROCORTISONE JAYDEN (RECTAL) Inactive ANUSOL-HC 25 MG SUPPOSITORY 1 rectally twice a day as needed for hemorrhoids ANUSOL-HC 25 MG SUPPOSITORY 1178619 HYDROCORTISONE JAYDEN (RECTAL) Inactive FLONASE 50 MCG/ACT SUSP 1 spray each nostril am and hs FLONASE 50 MCG/ACT SUSP FLUTICASONE PROPIONATE Inactive DICLOFENAC SODIUM 75 MG TBEC 1 tablet by q 12 hours PRN headaches DICLOFENAC SODIUM 75 MG TBEC 230981 DICLOFENAC SODIUM Inactive PA VITAMIN D-3 2000 UNIT CAPS 1 CAP PO DAILY PA VITAMIN D-3 2000 UNIT CAPS CHOLECALCIFEROL Inactive PREVACID 30 MG CPDR Take 1 tablet by mouth daily-PRN PREVACID 30 MG CPDR 363209 LANSOPRAZOLE Inactive DOXYCYCLINE HYCLATE 100 MG TAB 1 tab twice a day for 14 days 2013 DOXYCYCLINE HYCLATE 100 MG TAB 8091258 DOXYCYCLINE HYCLATE Inactive XOPENEX 1.25 MG/3ML NEBU 1 neb every 4 hours if needed for cough/congestion XOPENEX 1.25 MG/3ML NEBU 922000 LEVALBUTEROL HCL Inactive CYCLOBENZAPRINE HCL 10 MG TABS 1/2 - 1 tab by mouth three times daily if needed for spasms/pain CYCLOBENZAPRINE HCL 10 MG TABS 735365 CYCLOBENZAPRINE HCL Inactive ALBUTEROL SULFATE 0.083 % NEBU SOLN one vial per nebulizer every 4-6 hours as needed ALBUTEROL SULFATE 0.083 % NEBU SOLN 139083 ALBUTEROL SULFATE Inactive CEFTIN 500 MG TAB 1 twice a day CEFTIN 500 MG TAB 857426 CEFUROXIME AXETIL Inactive ZOFRAN ODT 4 MG TBDP 1 pill dissolved by mouth every 4 hours if needed for nausea ZOFRAN ODT 4 MG TBDP 149338 ONDANSETRON Inactive ADULT ASPIRIN EC LOW STRENGTH 81 MG TBEC Take 1 tablet by mouth daily 2014 ADULT ASPIRIN EC LOW STRENGTH 81 MG TBEC 573320 ASPIRIN Inactive CALCIUM 600+D PLUS MINERALS 600-400 [...] or an apple NIACIN 500 MG TABS 055708 NIACIN Inactive NIASPAN 500 MG ORAL CR-TABS 1 pill nightly x 1 week, then 2 pills nightly x 1 week, then 3 pills nightly x 1 week, then 4 pills nightly NIASPAN 500 MG ORAL CR-TABS NIACIN (ANTIHYPERLIPIDEMIC) Inactive OXYCODONE HCL 5 MG ORAL CAPS 1 TAB PO Q HS OXYCODONE HCL 5 MG ORAL CAPS 5177499 OXYCODONE HCL Inactive FLUTICASONE PROPIONATE 50 MCG/ACT SUSP 1 to 2 sprays each nostril daily 04/21 FLUTICASONE PROPIONATE 50 MCG/ACT SUSP 0893532 FLUTICASONE PROPIONATE Inactive POLYTRIM 98381-7.1 UNIT/ML-% SOLN 1 gtt to affected eye q3h x 7 days POLYTRIM 19561-3.1 UNIT/ML-% SOLN 448236 POLYMYXIN B- TRIMETHOPRIM Inactive CHERATUSSIN AC 100-10 MG/5ML SYRP 1 tsp by mouth every 4 hours as needed for cough CHERATUSSIN AC 100-10 MG/5ML SYRP 544243 GUAIFENESIN-CODEINE Inactive LEVOTHYROXINE SODIUM 75 MCG TABS Take 1 tab daily LEVOTHYROXINE SODIUM 75 MCG TABS 196521 LEVOTHYROXINE SODIUM Inactive BACTRIM DS 800-160 MG TAB 1 tab by mouth twice daily BACTRIM DS 800-160 MG TAB 607263 TRIMETHOPRIM-SULFAMETHOXAZOLE Inactive AZITHROMYCIN 250 MG TABS 2 po qd x 1 day, then 1 po qd x 4 days AZITHROMYCIN 250 MG TABS 7462981 AZITHROMYCIN Inactive CEFDINIR 300 MG CAPS by mouth twice a day CEFDINIR 300 MG CAPS 577770 CEFDINIR Inactive AZITHROMYCIN 250 MG TABS 2 pills on day 1, then 1 pill daily x 4 days AZITHROMYCIN 250 MG TABS 9586675 AZITHROMYCIN Inactive DOXYCYCLINE HYCLATE 100 MG CAP 1 cap by mouth twice daily DOXYCYCLINE HYCLATE 100 MG CAP 1210865 DOXYCYCLINE HYCLATE Inactive FUROSEMIDE 20 MG TABS 1 pill by mouth daily, for edema FUROSEMIDE 20 MG TABS 743622 FUROSEMIDE Inactive AZITHROMYCIN 250 MG TABS 2 po qd x 1 day, then 1 po qd x 4 days AZITHROMYCIN 250 MG TABS 5486249 AZITHROMYCIN Inactive CEFTIN 500 MG TAB 1 twice a day CEFTIN 500 MG TAB 370729 CEFUROXIME AXETIL Inactive CEFDINIR 300 MG CAPS 1 po BID x 10 days CEFDINIR 300 MG CAPS 991643 CEFDINIR Inactive BACTRIM DS 800-160 MG TAB 1 tab by mouth twice daily BACTRIM DS 800-160 MG TAB 011738 TRIMETHOPRIM-SULFAMETHOXAZOLE Inactive PREDNISONE 20 MG TAB 2 tabs daily for 3 days, 1 tab daily for 3 days, 1/2 tab daily for 2 days PREDNISONE 20 MG TAB 474184 PREDNISONE Inactive Immunizations Vaccine Administration Date Value Standard Description Seasonal influenza vaccine, injectable, containing preservative, for > 3 years old (Afluria, FluLaval, Fluzone, Fluvirin, Fluarix, Agriflu(>=18 yo)) Fluzone (>3 yrs.) [EXF017] Influenza, seasonal, injectable influenza immunization (Flu Vax) has been administered Influenza - Unspecified Formulation [CVX88] influenza virus vaccine, unspecified formulation Seasonal influenza vaccine, injectable, containing preservative, for > 3 years old (Afluria, FluLaval, Fluzone, Fluvirin, Fluarix, Agriflu(>=18 yo)) Fluzone (>3 yrs.) [HQW982] Influenza, seasonal, injectable pneumococcal immunization administered Pneumovax 23 [CVX33] pneumococcal polysaccharide vaccine, 23 valent dT (Diphtheria and Tetanus) booster given given Td(adult) unspecified formulation Boostrix (Tetanus toxoid, reduced diphtheria toxoid and acellular pertussis vaccine, adsorbed), booster Boostrix [UWF011] tetanus toxoid, reduced diphtheria toxoid, and acellular [...] Panel - Chemistry sodium, serum 142 mmol/L 826-702 1124/06/30 potassium, serum 4.4 mmol/L 3.5-5.2 chloride, serum [...] Rate - Chemistry sodium, serum 139 mmol/L 641-489 8901/03/24 carbon dioxide, venous blood 22.4 mmol/L 21.0-32.0 [...] ... - Chemistry sodium, serum 143 mmol/L 901-563 2880/05/02 carbon dioxide, venous blood 25.6 mmol/L 21.0-32.0 [...] PANEL - Chemistry cholesterol, serum 166 mg/dL 520-709 4400/12/06 triglyceride, serum, fasting 86 mg/dL 30-200 HDL [...] Negative mg/dL Negative sodium, serum 142 mmol/L 290-375 3468/07/18 carbon dioxide, venous blood 27.8 mmol/L 21.0-32.0 [...] negative Encounters Code Encounter Date Provider Facility CPT-98253 Level 3 Est. Patient 17:43:55 CUSTOM SHOEMAKER Gab Padrno MD [facility] CPT-27319 Level 3 Est. Patient 17:07:49 CUSTOM SHOEMAKER Jared Og MD [facility] CPT-24192 Level 4 Est. Patient 19:55:18 CUSTOM SHOEMAKER Jared Og MD [facility] CPT-95506 Level 3 Est. Patient 20:13:34 CUSTOM SHOEMAKER Jared Og MD [facility] CPT-63075 Level 4 Est. Patient 16:31:27 CDT Gab Padron MD [facility] CPT-30796 Level 2 Est. Patient 12:23:38 CDT Jared Og MD [facility] CPT-22740 Level 3 Est. Patient 11:01:51 CDT Gab Padron MD [facility] CPT-37631 Level 3 Est. Patient 15:27:02 CDT Jared Og MD [facility] CPT-03702 Level 4 Est. Patient 09:25:27 CDT Gab Padron MD [facility] CPT-73081 Level 3 Est. Patient 10:29:41 CDT Rodrigo Sarah [facility] CPT-45587 Level 4 Est. Patient 17:51:05 CDT Gab Padron MD [facility] CPT-17419 Level 3 Est. Patient 14:18:08 CDT Gab Padron MD [facility] CPT-89009 Level 4 Est. Patient 10:18:54 CDT Gab Padron MD [facility] CPT-64222 Level 3 Est. Patient 11:30:07 CDT Rodrigo Sarah [facility] CPT-40615 Level 4 Est. Patient 21:02:30 CUSTOM SHOEMAKER Gab Padron MD [facility] CPT-15496 Level 3 Est. Patient 11:02:19 CUSTOM SHOEMAKER Gab Padron MD [facility] CPT-00317 Level 4 Est. Patient 22:24:31 CUSTOM SHOEMAKER Gab Padron MD [facility] CPT-46068 Level 3 Est. Patient 18:33:46 CUSTOM SHOEMAKER Gab Padron MD [facility]-14397 Level 3 Est. Patient 16:19:11 CDT Yolande Lindsay MD [facility]-17376 Level 3 Est. Patient 18:59:14 CDT Yolande Lindsay MD [facility]-23152 Level 4 Est. Patient 21:29:26 CDT Yolande Lindsay MD [facility]-15404 Level 3 Est. Patient 07:37:45 CDT Yolande Lindsay MD [facility]-84667 Level 3 Est. Patient 17:03:46 CDT Yolande Lindsay MD [facility]-13309 Level 4 Est. Patient 20:02:13 CUSTOM SHOEMAKER Yolande Lindsay MD [facility]-29058 Level 3 Est. Patient 16:02:07 CUSTOM SHOEMAKER Alexis Ordaz MD [facility]-83410 Level 3 Est. Patient 12:41:24 CUSTOM SHOEMAKER Yolande Lindsay MD [facility]-50394 Level 3 Est. Patient 15:41:20 CUSTOM SHOEMAKER Yolande Lindsay MD [facility]-08143 Level 3 Est. Patient 13:20:02 CUSTOM SHOEMAKER Yolande Lindsay MD [facility]-78925 Level 3 Est. Patient 15:00:38 CDT Jared Og MD [facility]-19426 Level 3 Est. Patient 10:22:32 CDT Yolande Lindsay MD [facility]-26796 Level 3 Est. Patient 17:12:58 CDT Yolande Lindsay MD [facility]-95136 Level 4 Est. Patient 13:30:58 CDT Yolande Lindsay MD PhD [facility] CPT-36769 Level 4 New Patient 09:02:42 CDT Jared Og MD [facility]-32616 Level 3 Est. Patient 08:19:07 CDT Yolande Lindsay MD [facility]-82476 Level 3 Est. Patient 12:00:13 CUSTOM SHOEMAKER Gab Padron MD [facility]-21390 Level 3 Est. Patient 16:15:23 CUSTOM SHOEMAKER Yolande Lindsay MD [facility]-11898 Level 2 Est. Patient 19:47:15 CDT Yolande Lindsay MD [facility]-91238 Level 3 Est. Patient 21:38:31 CDT Yolande Lindsay MD [facility]-00104 Level 3 Est. Patient 10:25:12 CDT Adiel PERAZA [facility] CPT-06167 Level 4 Est. Patient 10:51:58 CDT Yolande Lindsay MD [facility]-75804 Level 3 Est. Patient 14:04:55 CUSTOM SHOEMAKER Rodrigo Sarah [facility]-58651 Level 3 Est. Patient 10:46:35 CUSTOM SHOEMAKER Rodrigo Sarah [facility]-47146 Level 3 Est. Patient 14:24:37 CUSTOM SHOEMAKER Yolande Lindsay MD [facility]-60018 Level 3 Est. Patient 17:41:58 CUSTOM SHOEMAKER Yolande Lindsay MD [facility]-31819 Level 2 Est. Patient 22:01:41 CUSTOM SHOEMAKER Rodrigo Sarah [facility]-36363 Level 2 Est. Patient 22:01:11 CUSTOM SHOEMAKER Rodrigo Sarah [facility] CPT-07173 Level 3 Est. Patient 10:12:29 CUSTOM SHOEMAKER Rodrigo Sarah [facility] CPT-18217 Level 3 Est. Patient 11:05:44 CDT Alexis Ordaz MD [facility] CPT-38851 Level 3 Est. Patient 14:57:20 CDT Yolande Lindsay MD [facility] CPT-88329 Level 3 Est. Patient 14:40:57 CDT Yolande Lindsay MD [facility] CPT-11116 Level 3 Est. Patient 20:55:40 CDT Yolande Lindsay MD [facility] CPT-05118 Level 3 Est. Patient 12:42:38 CUSTOM SHOEMAKER Yolande Lindsay MD [facility] CPT-33813 Level 3 Est. Patient 11:54:49 CUSTOM SHOEMAKER Des Hines MD [facility] CPT-06394 Level 3 Est. Patient 17:06:38 CDT Dewayne PERAZA [facility] Procedures Code Procedure Name Date Entry Date Standard Description CPT-66521 Hip, complete, 2-3 views - XRAY USE ONLY 17:19:04 CUSTOM SHOEMAKER CPT-21471 Venipuncture Draw Fee 08:37:59 CUSTOM SHOEMAKER CPT-96374 Liver Profile - LAB USE ONLY 08:37:59 CUSTOM SHOEMAKER CPT-58903 Lipid - LAB USE ONLY 08:37:58 CUSTOM SHOEMAKER CPT-19174 First Vx - Ix admin via ID IM or jet injects without counseling by physician 11:52:31 CDT CPT-72789 Fluzone Preservative Free Intramuscular Suspension 11:52 :31 CDT CPT-76282 Foot, left, comp min 3V - XRAY USE ONLY 09:24:54 CDT CPT-76530 Abd single AP View - XRAY USE ONLY 11:16:17 CDT CPT-20979 T spine AP/ Lat - XRAY USE ONLY 09:34:21 CDT CPT-76495 Chest 2V Frontal and Lat - XRAY USE ONLY 10:48:51 CDT CPT-50507 LS spine comp w obliq 13:28:00 CUSTOM SHOEMAKER CPT-J1040 Depo Medrol 80 mg (Methyl Prednisolone Acetate) 10:51: 28 CUSTOM SHOEMAKER CPT-J1100 Decadron 8mg (Dexamethasone) 10:51:28 CUSTOM SHOEMAKER CPT-29254 Abx/Therapy Injection 10:51:28 CUSTOM SHOEMAKER CPT-J1100 Decadron 8mg (Dexamethasone) 21:02:30 CUSTOM SHOEMAKER CPT-J1040 Depo Medrol 80 mg (Methyl Prednisolone Acetate) 21:02: 30 CUSTOM SHOEMAKER [id number] Event Monitor - MC Transmission 09:12:32 CDT 08/06 [id number] Event Monitor - MC review and interp 09:12:32 CDT [id number] Event Monitor - MC recording 09:12:32 CDT CPT-91537 EKG Trac and Interp 16:50:22 CDT CPT-J1030 Depo Medrol 40 mg (Methyl Prednisolone Acetate) 17:05: 54 CDT CPT-J1100 Decadron 4mg (Dexamethasone) 17:05:54 CDT CPT-15672 Abx/Therapy Injection 17:05:54 CDT CPT-J1100 Decadron 4mg (Dexamethasone) 16:55:28 CDT CPT-J1030 Depo Medrol 40 mg (Methyl Prednisolone Acetate) 16:55: 28 CDT CPT-60973 Ankle Complete - Min 3V 15:58:50 CDT CPT-65588 Knee 3V 15:58:50 CDT CPT-44988 Hip comp min 2V 15:58:50 CDT CPT-J2270 Morphine Sulfate 10 mg 14:25:44 CUSTOM SHOEMAKER CPT-J2550 Phenergan 12.5 mg (Promethazine) 14:25:44 CUSTOM SHOEMAKER CPT-18435 Abx/Therapy Injection 14:25:44 CUSTOM SHOEMAKER CPT-J2550 Phenergan 12.5 mg (Promethazine) 14:08:03 CUSTOM SHOEMAKER CPT-J2270 Morphine Sulfate 10 mg 14:08:03 CUSTOM SHOEMAKER CPT-58010 Bladder Scan 15:00:38 CDT CPT-TCMM Transitional Care Mgmt-Moderate 09:52:22 CDT CPT-J1030 Depo Medrol 40 mg (Methyl Prednisolone Acetate) 10:55: 18 CDT CPT-J1100 Decadron 4mg (Dexamethasone) 10:55:18 CDT CPT-68835 Abx/Therapy Injection 10:55:18 CDT CPT-J1030 Depo Medrol 40 mg (Methyl Prednisolone Acetate) 10:22: 32 CDT CPT-J1100 Decadron 4mg (Dexamethasone) 10:22:32 CDT CPT-61082 Postop F/U Visit 14:37:13 CDT CPT-19879 Ankle Complete - Min 3V 17:11:58 CDT CPT-42387 Foot comp min 3V 17:11:58 CDT CPT-16132 Bladder Scan 09:56:58 CDT CPT-26740 Postop F/U Visit 09:56:58 CDT CPT-53529 Cystoscopy 09:02:42 CDT CPT-80637 Bladder Scan 09:02:42 CDT CPT-68138 Abd single AP View 16:00:35 CDT CPT-31479 Administration single or combination vaccine inc oral 10 :15:43 CDT CPT-39999 Influenza split virus > age 3 10:15:43 CDT CPT-63292 Nail Avulsion 09:24:57 CDT CPT-OV Office Visit 11:15:41 CDT CPT-71580 Abx/Therapy Injection 10:51:30 CDT CPT-J3301 Kenalog 40 mg (Triamcinolone Acetonide) 10:25:12 CDT CPT-J1100 Decadron 4mg (Dexamethasone) 10:25:12 CDT CPT-76406 Anoscopy diagnostic 10:36:12 CDT CPT-OV Office Visit 15:34:31 CDT CPT-26513 Abx/Therapy Injection 08:21:15 CUSTOM SHOEMAKER CPT-J1885 Toradol 60 mg (Ketorolac) 10:46:35 CUSTOM SHOEMAKER CPT-OV Office Visit 19:51:16 CUSTOM SHOEMAKER CPT-87526 Spec Collection and Handling Fee 14:34:18 CUSTOM SHOEMAKER CPT-PV Prev. Care Visit 14:19:18 CUSTOM SHOEMAKER CPT-75895 Postop F/U Visit 14:47:51 CUSTOM SHOEMAKER CPT-60118 Postop F/U Visit 15:15:14 CUSTOM SHOEMAKER CPT-34405 Postop F/U Visit 14:41:43 CDT CPT-34288 Postop F/U Visit 15:47:46 CDT CPT-OV Office Visit 15:27:23 CDT CPT-OV Office Visit 17:20:34 CDT CPT-08460 Abx/Therapy Injection 15:05:57 CDT CPT-J1100 Decadron 8mg (Dexamethasone) 14:44:57 CDT CPT-J1040 Depo Medrol 80 mg (Methyl Prednisolone Acetate) 14:44: 57 CDT CPT-JTINJ Joint Injection 10:17:37 CDT CPT-50388 Administration 2+ single or combination vaccines inc oral 13:01:46 CUSTOM SHOEMAKER CPT-10838 Administration single or combination vaccine inc oral 13 :01:46 CUSTOM SHOEMAKER CPT-30656 Pneumovax 13:01:46 CUSTOM SHOEMAKER CPT-99701 Influenza split virus > age 3 13:01:46 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
--- OUTSIDE RECORDS SUMMARY | 2017-03-22 02:40 | XMS REPORT ---
Author Author [employer] [facility] Medical Staff Organization [facility] Address [address] [id number] Phone [phone] Care Team Providers Care Manager Strategic Alliances Name Role Phone EVELYN SPEARS MD PP [phone] Summary purpose TRANSITION OF CARE AUTO GENERATION [...]
--- OUTSIDE RECORDS SUMMARY | 2017-03-22 02:42 | XMS REPORT | Clinical Summary ---
Author Author Admin, MARGRET Organization [facility] Address Unknown Phone Unavailable Allergies, Adverse Reactions, Alerts Allergy Name Reaction Description Start Date Severity Status Provider CHLORHEXIDINE GLUCONATE tongue and gums swollen Critical Active Hoa Otto RMA NORFLEX Rash Critical Active Rodrigo Sarah BAR EXAMINER TRAZODONE HCL sees things Critical Active Dewayne [...] PERAZA Benign essential hypertension HYPERLIPIDEMIA 272.4 Active Yolaned Lindsay MD PhD Other and unspecified hyperlipidemia [...] MG TBDP 1 q4h PRN nausea ONDANSETRON 77041175907 Active Yolande Lindsay MD PhD Active ADULT ASPIRIN EC LOW STRENGTH 81 MG TBEC Take 1 tablet by mouth daily 2014 ASPIRIN 82700137703 No Longer Active Yolande Lindsay MD PhD Active ZOFRAN ODT 4 MG TBDP 1 pill dissolved by mouth every 4 hours if needed for nausea ONDANSETRON 07732583151 No Longer Active Yolande Lindsay MD PhD Active CEFTIN 500 MG TAB 1 twice a day CEFUROXIME AXETIL 78348893921 No Longer Active Yolande Lindsay MD PhD Active ALBUTEROL SULFATE 0.083 % NEB SOLN one vial per nebulizer every 4-6 hours as needed ALBUTEROL SULFATE 95198959041 No Longer Active Alexis Ordaz MD Active DOXYCYCLINE HYCLATE 100 MG CAP 1 cap by mouth twice daily DOXYCYCLINE HYCLATE 20031918480 No Longer Active Yolande Lindsay MD PhD Active CYCLOBENZAPRINE HCL 10 MG TABS 1/2 - 1 tab by mouth three times daily if needed for spasms/pain CYCLOBENZAPRINE HCL 05645731567 No Longer Active Yolande Lindsay MD PhD Active TRILEPTAL 600 MG TABS Take one 1/2 tablet in Am and 1 tablet at night OXCARBAZEPINE 99357750990 Active Yolande Lindsay MD PhD Active AZITHROMYCIN 250 MG TABS 2 pills on day 1, then 1 pill daily x 4 days AZITHROMYCIN 54871644433 No Longer Active Yolande Lindsay MD PhD Active XOPENEX 1.25 MG/3ML NEBU 1 neb every 4 hours if needed for cough/congestion LEVALBUTEROL HCL 09987530170 No Longer Active Yolande Lindsay MD PhD Active DOXYCYCLINE HYCLATE 100 MG TAB 1 tab twice a day for 14 days 2013 DOXYCYCLINE HYCLATE 55264567502 No Longer Active Yolande Lindsay MD PhD Active LEVOTHYROXINE SODIUM 75 MCG TABS Take 1 tab daily LEVOTHYROXINE SODIUM 34641775831 Active Yolande Lindsay MD PhD Active PREVACID 30 MG CPDR Take 1 tablet by mouth daily-PRN LANSOPRAZOLE 55340415123 No Longer Active Yolande Lindsay MD PhD Active PA VITAMIN D-3 2000 UNIT CAPS 1 CAP PO DAILY CHOLECALCIFEROL 61851406061 No Longer Active Yolande Lindsay MD PhD Active CEFDINIR 300 MG CAPS by mouth twice a day CEFDINIR 20319284597 No Longer Active Gab Padron MD Active TOPAMAX 50 MG TABS 1 PO twice daily TOPIRAMATE 13796861466 Active Yolande Lindsay MD PhD Active AZITHROMYCIN 250 MG TABS 2 po qd x 1 day, then 1 po qd x 4 days AZITHROMYCIN 59755649312 No Longer Active Yolande Lindsay MD PhD Active DICLOFENAC SODIUM 75 MG TBEC 1 tablet by q 12 hours PRN headaches DICLOFENAC SODIUM 66548314537 No Longer Active Yolande Lindsay MD PhD Active FLONASE 50 MCG/ACT SUSP 1 spray each nostril am and hs FLUTICASONE PROPIONATE 82386462627 No Longer Active Todd Callaway MD Active ANUSOL-HC 25 MG SUPPOSITORY 1 rectally twice a day as needed for hemorrhoids HYDROCORTISONE JAYDEN (RECTAL) 57825994753 No Longer Active Yolande Lindsay MD PhD Active ANUSOL-HC 25 MG SUPPOSITORY 1 suppository rectally each evening as needed for anal fissure HYDROCORTISONE JAYDEN (RECTAL) 09248872302 No Longer Active LONNIE Iglesias Active VALIUM 5 MG TAB 1 po 30 minutes prior to your MRI DIAZEPAM 29793909974 No Longer Active LONNIE Iglesias Active METHOCARBAMOL 750 MG TABS 1 PO QID PRN METHOCARBAMOL 48605621834 No Longer Active Daphne Wetzel BAR EXAMINER Active NITROSTAT 0.4 MG SUBL as directed NITROGLYCERIN 72686516047 No Longer Active Rodrigo Sarah APRN Active ROBAXIN-750 750 MG TABS 2 four times a day for 3 days as needed for muscle spasm, then 1 four times a day as needed METHOCARBAMOL 85515791404 No Longer Active Rodrigo Sarah APRN Active HYDROCODONE-ACETAMINOPHEN 5-325 MG TABS 1 q 4-6 hrs prn HYDROCODONE-ACETAMINOPHEN 36553755095 No Longer Active Silvestrellnacho Sarah APRN Active VERAPAMIL HCL CR 180 MG CR-TABS TAKE 1 TAB DAILY VERAPAMIL HCL 52205433357 No Longer Active Yolande Lindsay MD PhD Active BACTRIM DS 800-160 MG TAB 1 tab by mouth twice daily TRIMETHOPRIM-SULFAMETHOXAZOLE 01176201029 No Longer Active Yolande Lindsay MD PhD Active NEXIUM 40 MG PACK 1 by mouth daily ESOMEPRAZOLE MAGNESIUM 18255494841 No Longer Active Des Hines MD Active EPIPEN 2-CHARLETTE 0.3 MG/0.3ML OMARI as need for allergic reaction EPINEPHRINE 70484233787 Active Yolande Lindsay MD PhD Active LISINOPRIL 10 MG TABS 1 PO Q D FOR BP LISINOPRIL 66562060521 Active Yolande Lindsay MD PhD Active NEXIUM 40 MG CPDR 1 PO Q D DAY ESOMEPRAZOLE MAGNESIUM 09283552415 No Longer Active Sadia Perry RN Active NEXIUM 40 MG PACK 1 by mouth daily NEXIUM 40 MG PACK ESOMEPRAZOLE MAGNESIUM Inactive VERAPAMIL HCL CR 180 MG CR-TABS TAKE 1 TAB DAILY VERAPAMIL HCL CR 180 MG CR-TABS VERAPAMIL HCL Inactive HYDROCODONE-ACETAMINOPHEN 5-325 MG TABS 1 q 4-6 hrs prn HYDROCODONE-ACETAMINOPHEN 5-325 MG TABS 553231 HYDROCODONE-ACETAMINOPHEN Inactive ROBAXIN-750 750 MG TABS 2 four times a day for 3 days as needed for muscle spasm, then 1 four times a day as needed ROBAXIN-750 750 MG TABS 833460 METHOCARBAMOL Inactive NITROSTAT 0.4 MG SUBL as directed NITROSTAT 0.4 MG SUBL NITROGLYCERIN Inactive METHOCARBAMOL 750 MG TABS 1 PO QID PRN METHOCARBAMOL 750 MG TABS 313876 METHOCARBAMOL Inactive VALIUM 5 MG TAB 1 po 30 minutes prior to your MRI VALIUM 5 MG TAB 005784 DIAZEPAM Inactive ANUSOL-HC 25 MG SUPPOSITORY 1 suppository rectally each evening as needed for anal fissure ANUSOL-HC 25 MG SUPPOSITORY 0821628 HYDROCORTISONE JAYDEN (RECTAL) Inactive ANUSOL-HC 25 MG SUPPOSITORY 1 rectally twice a day as needed for hemorrhoids ANUSOL-HC 25 MG SUPPOSITORY 2430810 HYDROCORTISONE JAYDEN (RECTAL) Inactive FLONASE 50 MCG/ACT SUSP 1 spray each nostril am and hs FLONASE 50 MCG/ACT SUSP 824911 FLUTICASONE PROPIONATE Inactive DICLOFENAC SODIUM 75 MG TBEC 1 tablet by q 12 hours PRN headaches DICLOFENAC SODIUM 75 MG TBEC 633151 DICLOFENAC SODIUM Inactive PA VITAMIN D-3 2000 UNIT CAPS 1 CAP PO DAILY PA VITAMIN D-3 2000 UNIT CAPS CHOLECALCIFEROL Inactive PREVACID 30 MG CPDR Take 1 tablet by mouth daily-PRN PREVACID 30 MG CPDR 065987 LANSOPRAZOLE Inactive DOXYCYCLINE HYCLATE 100 MG TAB 1 tab twice a day for 14 days 2013 DOXYCYCLINE HYCLATE 100 MG TAB 201065 DOXYCYCLINE HYCLATE Inactive XOPENEX 1.25 MG/3ML NEBU 1 neb every 4 hours if needed for cough/congestion XOPENEX 1.25 MG/3ML NEBU LEVALBUTEROL HCL Inactive CYCLOBENZAPRINE HCL 10 MG TABS 1/2 - 1 tab by mouth three times daily if needed for spasms/pain CYCLOBENZAPRINE HCL 10 MG TABS 403435 CYCLOBENZAPRINE HCL Inactive ALBUTEROL SULFATE 0.083 % NEBU SOLN one vial per nebulizer every 4-6 hours as needed ALBUTEROL SULFATE 0.083 % NEBU SOLN 291360 ALBUTEROL SULFATE Inactive CEFTIN 500 MG TAB 1 twice a day CEFTIN 500 MG TAB 947409 CEFUROXIME AXETIL Inactive ZOFRAN ODT 4 MG TBDP 1 pill dissolved by mouth every 4 hours if needed for nausea ZOFRAN ODT 4 MG TBDP 435860 ONDANSETRON Inactive ADULT ASPIRIN EC LOW STRENGTH 81 MG TBEC Take 1 tablet by mouth daily 2014 ADULT ASPIRIN EC LOW STRENGTH 81 MG TBEC 513355 ASPIRIN Inactive BACTRIM DS 800-160 MG TAB 1 tab by mouth twice daily BACTRIM DS 800-160 MG TAB TRIMETHOPRIM-SULFAMETHOXAZOLE Inactive AZITHROMYCIN 250 MG TABS 2 po qd x 1 day, then 1 po qd x 4 days AZITHROMYCIN 250 MG TABS 1110259 AZITHROMYCIN Inactive CEFDINIR 300 MG CAPS by mouth twice a day CEFDINIR 300 MG CAPS 894558 CEFDINIR Inactive AZITHROMYCIN 250 MG TABS 2 pills on day 1, then 1 pill daily x 4 days AZITHROMYCIN 250 MG TABS 5844545 AZITHROMYCIN Inactive DOXYCYCLINE HYCLATE 100 MG CAP 1 cap by mouth twice daily DOXYCYCLINE HYCLATE 100 MG CAP 19890510 DOXYCYCLINE HYCLATE Inactive Immunizations Vaccine Administration Date Value Standard Description Seasonal influenza vaccine, injectable, containing preservative, for > 3 years old (Afluria, FluLaval, Fluzone, Fluvirin, Fluarix, Agriflu(>=18 yo)) Fluzone (>3 yrs.) [[id number]] Influenza, seasonal, injectable influenza immunization (Flu Vax) has been administered Influenza - Unspecified Formulation [CVX88] influenza virus vaccine, unspecified formulation Seasonal influenza vaccine, injectable, containing preservative, for > 3 years old (Afluria, FluLaval, Fluzone, Fluvirin, Fluarix, Agriflu(>=18 yo)) Fluzone (>3 yrs.) [ZMY775] Influenza, seasonal, injectable pneumococcal immunization administered Pneumovax 23 [CVX33] pneumococcal polysaccharide vaccine, 23 valent dT (Diphtheria and Tetanus) booster given given Td(adult) unspecified formulation Boostrix (Tetanus toxoid, reduced diphtheria toxoid and acellular pertussis vaccine, adsorbed), booster Boostrix [QQV890] tetanus toxoid, reduced diphtheria toxoid, and acellular [...] Panel - Chemistry sodium, serum 144 mmol/L [phone]/01/21 potassium, serum 4.2 mmol/L 3.5-5.2 chloride, serum [...] Panel - Chemistry sodium, serum 144 mmol/L 257-732 9540/12/15 potassium, serum 5.4 mmol/L 3.5-5.2 chloride, serum [...] dipstick Negative Negative sodium, serum 143 mmol/L 943-559 0765/10/24 potassium, serum 3.9 mmol/L 3.5-5.2 chloride, serum [...] 51 mg/dL 30-200 cholesterol, serum 173 mg/dL 233-177 4886/04/28 HDL cholesterol, serum 63 mg/dL 32-96 LDL [...] 1.010 Encounters Code Encounter Date Provider Facility CPT-46601 Level 3 Est. Patient 17:03:46 CDT Yolande Lindsay MD PhD [facility] CPT-95087 Level 4 Est. Patient 20:02:13 DRY TRANSFER MAN Yolande Lindsay MD PhD [facility] CPT-08206 Level 3 Est. Patient 16:02:07 DRY TRANSFER MAN Alexis Ordaz MD [facility] CPT-33856 Level 3 Est. Patient 12:41:24 DRY TRANSFER MAN Yolande Lindsay MD PhD [facility] CPT-62444 Level 3 Est. Patient 15:41:20 DRY TRANSFER MAN Yolande Lindsay MD [facility] CPT-95843 Level 3 Est. Patient 13:20:02 DRY TRANSFER MAN Yolande Lindsay MD [facility] [place][note 3]-79032 Level 3 Est. Patient 15:00:38 CDT Jared Og MD [facility] CPT-27356 Level 3 Est. Patient 10:22:32 CDT Yolande Lindsay MD [facility] [place][note 3]-26233 Level 3 Est. Patient 17:12:58 CDT Yolande Lindsay MD [facility] [place][note 3]-51556 Level 4 Est. Patient 13:30:58 CDT Yolande Lindsay MD [facility][note 3]-18571 Level 4 New Patient 09:02:42 CDT Jared Og MD [facility] CPT-98236 Level 3 Est. Patient 08:19:07 CDT Yolande Lindsay MD [facility] CPT-68070 Level 3 Est. Patient 12:00:13 DRY TRANSFER MAN Gab Padron MD [facility] [place][note 2]-19808 Level 3 Est. Patient 16:15:23 DRY TRANSFER MAN Yolande Lindsay MD [facility] CPT-54468 Level 2 Est. Patient 19:47:15 CDT Yolande Lindsay MD [facility] CPT-00576 Level 3 Est. Patient 21:38:31 CDT Yolande Lindsay MD [facility] CPT-40487 Level 3 Est. Patient 10:25:[address] [facility] CPT-46412 Level 4 Est. Patient 10:51:58 CDT Yolande Lindsay MD [facility] [place][note 3]-93713 Level 3 Est. Patient 14:04:55 DRY TRANSFER MAN Rodrigo Sarah APRN [facility] CPT-12263 Level 3 Est. Patient 10:46:35 DRY TRANSFER MAN Rodrigo Sarah [facility] CPT-61744 Level 3 Est. Patient 14:24:37 DRY TRANSFER MAN Yolande Lindsay MD [facility] CPT-30863 Level 3 Est. Patient 17:41:58 DRY TRANSFER MAN Yolande Lindsay MD [facility] CPT-12375 Level 2 Est. Patient 22:01:41 DRY TRANSFER MAN Rodrigo Sarah [facility] CPT-16678 Level 2 Est. Patient 22:01:11 DRY TRANSFER MAN Rodrigo Sarah [facility] CPT-45712 Level 3 Est. Patient 10:12:29 DRY TRANSFER MAN Rodrigo Sarah [facility] CPT-80667 Level 3 Est. Patient 11:05:44 CDT Alexis Ordaz MD [facility] CPT-66678 Level 3 Est. Patient 14:57:20 CDT Yolande Lindsay MD [facility] CPT-30115 Level 3 Est. Patient 14:40:57 CDT Yolande Lindsay MD [facility] CPT-38068 Level 3 Est. Patient 20:55:40 CDT Yolande Lindsay MD [facility] CPT-36080 Level 3 Est. Patient 12:42:38 DRY TRANSFER MAN Yolande Lindsay MD [facility]-00754 Level 3 Est. Patient 11:54:49 DRY TRANSFER MAN Des Hines MD [facility] CPT-35640 Level 3 Est. Patient 17:06:[address] [facility] Procedures Code Procedure Name Date Entry Date Standard Description CPT-J1030 Depo Medrol 40 mg (Methyl Prednisolone Acetate) 17:05: 54 CDT CPT-J1100 Decadron 4mg (Dexamethasone) 17:05:54 CDT CPT-68732 Abx/Therapy Injection 17:05:54 CDT CPT-J1100 Decadron 4mg (Dexamethasone) 16:55:28 CDT CPT-J1030 Depo Medrol 40 mg (Methyl Prednisolone Acetate) 16:55: 28 CDT CPT-07800 Ankle Complete - Min 3V 15:58:50 CDT CPT-71501 Knee 3V 15:58:50 CDT CPT-31263 Hip comp min 2V 15:58:50 CDT CPT-J2270 Morphine Sulfate 10 mg 14:25:44 DRY TRANSFER MAN CPT-J2550 Phenergan 12.5 mg (Promethazine) 14:25:44 DRY TRANSFER MAN CPT-81070 Abx/Therapy Injection 14:25:44 DRY TRANSFER MAN CPT-J2550 Phenergan 12.5 mg (Promethazine) 14:08:03 DRY TRANSFER MAN CPT-J2270 Morphine Sulfate 10 mg 14:08:03 DRY TRANSFER MAN CPT-54743 Bladder Scan 15:00:38 CDT CPT-TCMM Transitional Care Mgmt-Moderate 09:52:22 CDT CPT-J1030 Depo Medrol 40 mg (Methyl Prednisolone Acetate) 10:55: 18 CDT CPT-J1100 Decadron 4mg (Dexamethasone) 10:55:18 CDT CPT-64009 Abx/Therapy Injection 10:55:18 CDT CPT-J1030 Depo Medrol 40 mg (Methyl Prednisolone Acetate) 10:22: 32 CDT CPT-J1100 Decadron 4mg (Dexamethasone) 10:22:32 CDT CPT-14258 Postop F/U Visit 14:37:13 CDT CPT-74066 Ankle Complete - Min 3V 17:11:58 CDT CPT-62242 Foot comp min 3V 17:11:58 CDT CPT-78888 Bladder Scan 09:56:58 CDT CPT-38573 Postop F/U Visit 09:56:58 CDT CPT-85199 Cystoscopy 09:02:42 CDT CPT-57055 Bladder Scan 09:02:42 CDT CPT-24937 Abd single AP View 16:00:35 CDT CPT-31668 Administration single or combination vaccine inc oral 10 :15:43 CDT CPT-77865 Influenza split virus > age 3 10:15:43 CDT CPT-79099 Nail Avulsion 09:24:57 CDT CPT-OV Office Visit 11:15:41 CDT CPT-73824 Abx/Therapy Injection 10:51:30 CDT CPT-J3301 Kenalog 40 mg (Triamcinolone Acetonide) 10:25:12 CDT CPT-J1100 Decadron 4mg (Dexamethasone) 10:25:12 CDT CPT-84564 Anoscopy diagnostic 10:36:12 CDT CPT-OV Office Visit 15:34:31 CDT CPT-55981 Abx/Therapy Injection 08:21:15 DRY TRANSFER MAN CPT-J1885 Toradol 60 mg (Ketorolac) 10:46:35 DRY TRANSFER MAN CPT-OV Office Visit 19:51:16 DRY TRANSFER MAN CPT-06597 Spec Collection and Handling Fee 14:34:18 DRY TRANSFER MAN CPT-PV Prev. Care Visit 14:19:18 DRY TRANSFER MAN CPT-92836 Postop F/U Visit 14:47:51 DRY TRANSFER MAN CPT-96430 Postop F/U Visit 15:15:14 DRY TRANSFER MAN CPT-77757 Postop F/U Visit 14:41:43 CDT CPT-71379 Postop F/U Visit 15:47:46 CDT CPT-OV Office Visit 15:27:23 CDT CPT-OV Office Visit 17:20:34 CDT CPT-67687 Abx/Therapy Injection 15:05:57 CDT CPT-J1100 Decadron 8mg (Dexamethasone) 14:44:57 CDT CPT-J1040 Depo Medrol 80 mg (Methyl Prednisolone Acetate) 14:44: 57 CDT CPT-JTINJ Joint Injection 10:17:37 CDT CPT-24995 Administration 2+ single or combination vaccines inc oral 13:01:46 DRY TRANSFER MAN CPT-96263 Administration single or combination vaccine inc oral 13 :01:46 DRY TRANSFER MAN CPT-51701 Pneumovax 13:01:46 DRY TRANSFER MAN CPT-84622 Influenza split virus > age 3 13:01:46 DRY TRANSFER MAN CPT-30088 Administration single or combination vaccine inc oral 08 :56:49 CDT CPT-64058 Tdap 08:56:49 CDT
--- OUTSIDE RECORDS SUMMARY | 2017-03-22 02:44 | XMS REPORT | Clinical Summary ---
Author Author Admin, E Organization [facility] Address Unknown Phone Unavailable Allergies, Adverse Reactions, Alerts Allergy Name Reaction Description Start Date Severity Status Provider VALENTIN Critical Active Rodrigo Fracharlottel FINISHER FINE DIAMOND DIES CHLORHEXIDINE GLUCONATE tongue and gums swollen Critical Active Hoadante Otto RMA NORFLEX Rash Critical Active Silvestrellina Frazell FINISHER FINE DIAMOND DIES TRAZODONE HCL sees things Critical Active Dewayne [...] Unspecified chest pain HEADACHE 784.0 Resolved Yolande iLndsay MD PhD Headache SPONDYLOLISTHESIS 756.12 Active Yolande [...] Lumbago Cough 786.2 Active Jillina Tyrel FINISHER FINE DIAMOND DIES Cough 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 Jillina Frazellilian FINISHER FINE DIAMOND DIES 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 Anemia 285.9 Active Gab Padron MD Anemia, unspecified Conjunctivitis 372.30 Active Jillnacho Sarah APRN Conjunctivitis, unspecified Sinusitis 473.9 Active Silvestrellina Frazell FINISHER FINE DIAMOND DIES Unspecified sinusitis (chronic) Nonspecific syndrome suggestive of viral illness 079.99 Active Rodrigo Sarah FINISHER FINE DIAMOND DIES Unspecified viral infection Laryngitis 464.00 Active Rodrigo Sarah FINISHER FINE DIAMOND DIES Acute laryngitis without mention of obstruction Abdominal [...] acute ICD-461.9 Inactive Yolande Lindsay MD PhD Sinusitis ICD-461.9 [...] pain ICD-789.09 Inactive Yolande Lindsay MD PhD Medication List Medication Instructions Start Date Stop Date Generic Name NDC Status Provider Patient Instruction ADVAIR DISKUS 250-50 MCG/DOSE AEPB 1 puff BID FLUTICASONE- SALMETEROL 81374938022 Active Rodrigo Sarah FINISHER FINE DIAMOND DIES Active LEVOTHYROXINE SODIUM 75 MCG TABS Take 1 tab daily LEVOTHYROXINE SODIUM 20052706282 No Longer Active Mariana FLEMING Active SYNTHROID 88 MCG ORAL TABS Take one by mouth daily LEVOTHYROXINE SODIUM 65962802859 Active Mariana HICKEYA Active CHERATUSSIN AC 100-10 MG/5ML SYRP 1 tsp by mouth every 4 hours as needed for cough GUAIFENESIN-CODEINE 53141196977 No Longer Active Gab Padron MD Active POLYTRIM 75787-4.1 UNIT/ML-% SOLN 1 gtt to affected eye q3h x 7 days POLYMYXIN B-TRIMETHOPRIM 47704969178 No Longer Active Gab Padron MD Active FLUTICASONE PROPIONATE 50 MCG/ACT SUSP 1 to 2 sprays each nostril daily 04/21 FLUTICASONE PROPIONATE 52561035392 No Longer Active Gab Padron MD Active TRILEPTAL 600 MG TABS Take one 1 tablet in Am and 1 tablet at night OXCARBAZEPINE 59172936999 Active Gab Padron MD Active CEFDINIR 300 MG CAPS 1 po BID x 10 days CEFDINIR 34112332314 No Longer Active Rodrigo Sarah APRN Active CEFTIN 500 MG TAB 1 twice a day CEFUROXIME AXETIL 59408422232 No Longer Active Gab Padron MD Active AZITHROMYCIN 250 MG TABS 2 po qd x 1 day, then 1 po qd x 4 days AZITHROMYCIN 11868162047 No Longer Active Rodrigo Sarah APRN Active CLARITIN 10 MG TAB 1 tablet by mouth daily as needed for allergies LORATADINE 43478048988 Active Rodrigo Sarah APRN Active OXYCODONE HCL 5 MG ORAL CAPS 1 TAB PO Q HS OXYCODONE HCL 32959911688 No Longer Active Rodrigo Sarah APRN Active NIASPAN 500 MG ORAL CR-TABS 1 pill nightly x 1 week, then 2 pills nightly x 1 week, then 3 pills nightly x 1 week, then 4 pills nightly NIACIN (ANTIHYPERLIPIDEMIC) 79862020101 No Longer Active Rodrigo Sarah APRN Active NIACIN 500 MG TABS 1 pill by mouth nightly x 1 week, then 2 pills x 1 week, then 3 pills x 1 week, then 4 pills nightly - take after evening meal, with applesauce or an apple NIACIN 11889030309 No Longer Active Yolande Lindsay MD PhD Active FISH OIL 1000 MG CAPS 3 pills daily OMEGA-3 FATTY ACIDS 02864886381 Active Yolande Lindsay MD PhD Active TRIAMCINOLONE ACETONIDE 0.1 % CREA apply bid sparingly to rash TRIAMCINOLONE ACETONIDE 00061695709 Active Yolande Lindsay MD PhD Active FUROSEMIDE 20 MG TAB 1 tablet by mouth daily FUROSEMIDE 99868191847 Active Tisha Lambert FINISHER FINE DIAMOND DIES Active LISINOPRIL 20 MG ORAL TABS 1 tab by mouth daily LISINOPRIL 88922640051 Active Gab Padron MD Active FUROSEMIDE 20 MG TABS 1 pill by mouth daily, for edema FUROSEMIDE 16118069559 No Longer Active Yolande Lindsay MD PhD Active ATORVASTATIN CALCIUM 10 MG TABS 1 pill by mouth daily, for cholesterol 09/06 ATORVASTATIN CALCIUM 85455705784 Active Gab Padron MD Active CALCIUM 600+D PLUS MINERALS 600-400 MG-UNIT ORAL CHEW 1 tab by mouth daily CALCIUM CARBONATE-VIT D-MIN 08286016923 No Longer Active Yolande Lindsay MD PhD Active CYCLOBENZAPRINE HCL 10 MG TABS 1 tablet by mouth three times daily as needed for muscle spasm/pain CYCLOBENZAPRINE HCL 76629976637 Active Yolande Lindsay MD PhD Active ONDANSETRON 4 MG TBDP 1 q4h PRN nausea ONDANSETRON 42702170871 Active Yolande Lindsay MD PhD Active ADULT ASPIRIN EC LOW STRENGTH 81 MG TBEC Take 1 tablet by mouth daily 2014 ASPIRIN 35417070635 No Longer Active Yolande Lindsay MD PhD Active ZOFRAN ODT 4 MG TBDP 1 pill dissolved by mouth every 4 hours if needed for nausea ONDANSETRON 72427350336 No Longer Active Yolande Lindsay MD PhD Active CEFTIN 500 MG TAB 1 twice a day CEFUROXIME AXETIL 36703709009 No Longer Active Yolande Lindsay MD PhD Active ALBUTEROL SULFATE 0.083 % NEBU SOLN one vial per nebulizer every 4-6 hours as needed ALBUTEROL SULFATE 31412757710 No Longer Active Alexis Ordaz MD Active DOXYCYCLINE HYCLATE 100 MG CAP 1 cap by mouth twice daily DOXYCYCLINE HYCLATE 46060719567 No Longer Active Yolande Lindsay MD PhD Active CYCLOBENZAPRINE HCL 10 MG TABS 1/2 - 1 tab by mouth three times daily if needed for spasms/pain CYCLOBENZAPRINE HCL 29623878484 No Longer Active Yolande Lindsay MD PhD Active AZITHROMYCIN 250 MG TABS 2 pills on day 1, then 1 pill daily x 4 days AZITHROMYCIN 60503486781 No Longer Active Yolande Lindsay MD PhD Active XOPENEX 1.25 MG/3ML NEBU 1 neb every 4 hours if needed for cough/congestion LEVALBUTEROL HCL 87324568098 No Longer Active Yolande Lindsay MD PhD Active DOXYCYCLINE HYCLATE 100 MG TAB 1 tab twice a day for 14 days 2013 DOXYCYCLINE HYCLATE 75854787658 No Longer Active Yolande Lindsay MD PhD Active PREVACID 30 MG CPDR Take 1 tablet by mouth daily-PRN LANSOPRAZOLE 04715020600 No Longer Active Yolande Lindsay MD PhD Active PA VITAMIN D-3 2000 UNIT CAPS 1 CAP PO DAILY CHOLECALCIFEROL 13609532610 No Longer Active Yolande Lindsay MD PhD Active CEFDINIR 300 MG CAPS by mouth twice a day CEFDINIR 69200128203 No Longer Active Gab Padron MD Active TOPAMAX 50 MG TABS 1 PO twice daily TOPIRAMATE 40443025898 Active Yolande Lindsay MD PhD Active AZITHROMYCIN 250 MG TABS 2 po qd x 1 day, then 1 po qd x 4 days AZITHROMYCIN 68674563963 No Longer Active Yolande Lindsay MD PhD Active DICLOFENAC SODIUM 75 MG TBEC 1 tablet by q 12 hours PRN headaches DICLOFENAC SODIUM 76001356535 No Longer Active Yolande Lindsay MD PhD Active FLONASE 50 MCG/ACT SUSP 1 spray each nostril am and hs FLUTICASONE PROPIONATE 41693788065 No Longer Active Todd Callaway MD Active ANUSOL-HC 25 MG SUPPOSITORY 1 rectally twice a day as needed for hemorrhoids HYDROCORTISONE JAYDEN (RECTAL) 58289419329 No Longer Active Yolande Lindsay MD PhD Active ANUSOL-HC 25 MG SUPPOSITORY 1 suppository rectally each evening as needed for anal fissure HYDROCORTISONE JAYDEN (RECTAL) 33634600783 No Longer Active LONNIE Iglesias Active VALIUM 5 MG TAB 1 po 30 minutes prior to your MRI DIAZEPAM 20627468447 No Longer Active LONNIE Iglesias Active METHOCARBAMOL 750 MG TABS 1 PO QID PRN METHOCARBAMOL 12102942681 No Longer Active Daphne Wetzel APRN Active NITROSTAT 0.4 MG SUBL as directed NITROGLYCERIN 90920865648 No Longer Active Rodrigo Sarah APRN Active ROBAXIN-750 750 MG TABS 2 four times a day for 3 days as needed for muscle spasm, then 1 four times a day as needed METHOCARBAMOL 44616401309 No Longer Active Rodriog Sarah APRN Active HYDROCODONE-ACETAMINOPHEN 5-325 MG TABS 1 q 4-6 hrs prn HYDROCODONE-ACETAMINOPHEN 00134184718 No Longer Active Rodrigo Sarah APRN Active VERAPAMIL HCL CR 180 MG CR-TABS TAKE 1 TAB DAILY VERAPAMIL HCL 60867279412 No Longer Active Yolande Lindsay MD PhD Active BACTRIM DS 800-160 MG TAB 1 tab by mouth twice daily TRIMETHOPRIM-SULFAMETHOXAZOLE 28097902500 No Longer Active Yolande Lindsay MD PhD Active NEXIUM 40 MG PACK 1 by mouth daily ESOMEPRAZOLE MAGNESIUM 13353404282 No Longer Active Des Hines MD Active EPIPEN 2-CHARLETTE 0.3 MG/0.3ML OMARI as need for allergic reaction EPINEPHRINE 12789631475 Active Yolande Lindsay MD PhD Active NEXIUM 40 MG CPDR 1 PO Q D DAY ESOMEPRAZOLE MAGNESIUM 19892751550 No Longer Active Sadia Perry RN Active NEXIUM 40 MG PACK 1 by mouth daily NEXIUM 40 MG PACK ESOMEPRAZOLE MAGNESIUM Inactive VERAPAMIL HCL CR 180 MG CR-TABS TAKE 1 TAB DAILY VERAPAMIL HCL CR 180 MG CR-TABS VERAPAMIL HCL Inactive HYDROCODONE-ACETAMINOPHEN 5-325 MG TABS 1 q 4-6 hrs prn HYDROCODONE-ACETAMINOPHEN 5-325 MG TABS 910163 HYDROCODONE-ACETAMINOPHEN Inactive ROBAXIN-750 750 MG TABS 2 four times a day for 3 days as needed for muscle spasm, then 1 four times a day as needed ROBAXIN-750 750 MG TABS 582084 METHOCARBAMOL Inactive NITROSTAT 0.4 MG SUBL as directed NITROSTAT 0.4 MG SUBL NITROGLYCERIN Inactive METHOCARBAMOL 750 MG TABS 1 PO QID PRN METHOCARBAMOL 750 MG TABS 215352 METHOCARBAMOL Inactive VALIUM 5 MG TAB 1 po 30 minutes prior to your MRI VALIUM 5 MG TAB 404638 DIAZEPAM Inactive ANUSOL-HC 25 MG SUPPOSITORY 1 suppository rectally each evening as needed for anal fissure ANUSOL-HC 25 MG SUPPOSITORY 9900815 HYDROCORTISONE JAYDEN (RECTAL) Inactive ANUSOL-HC 25 MG SUPPOSITORY 1 rectally twice a day as needed for hemorrhoids ANUSOL-HC 25 MG SUPPOSITORY 4000231 HYDROCORTISONE JAYDEN (RECTAL) Inactive FLONASE 50 MCG/ACT SUSP 1 spray each nostril am and hs FLONASE 50 MCG/ACT SUSP 559705 FLUTICASONE PROPIONATE Inactive DICLOFENAC SODIUM 75 MG TBEC 1 tablet by q 12 hours PRN headaches DICLOFENAC SODIUM 75 MG TBEC 840897 DICLOFENAC SODIUM Inactive PA VITAMIN D-3 2000 UNIT CAPS 1 CAP PO DAILY PA VITAMIN D-3 2000 UNIT CAPS CHOLECALCIFEROL Inactive PREVACID 30 MG CPDR Take 1 tablet by mouth daily-PRN PREVACID 30 MG CPDR 758306 LANSOPRAZOLE Inactive DOXYCYCLINE HYCLATE 100 MG TAB 1 tab twice a day for 14 days 2013 DOXYCYCLINE HYCLATE 100 MG TAB 3894332 DOXYCYCLINE HYCLATE Inactive XOPENEX 1.25 MG/3ML NEBU 1 neb every 4 hours if needed for cough/congestion XOPENEX 1.25 MG/3ML NEBU 532966 LEVALBUTEROL HCL Inactive CYCLOBENZAPRINE HCL 10 MG TABS 1/2 - 1 tab by mouth three times daily if needed for spasms/pain CYCLOBENZAPRINE HCL 10 MG TABS 264413 CYCLOBENZAPRINE HCL Inactive ALBUTEROL SULFATE 0.083 % NEBU SOLN one vial per nebulizer every 4-6 hours as needed ALBUTEROL SULFATE 0.083 % NEBU SOLN 018385 ALBUTEROL SULFATE Inactive CEFTIN 500 MG TAB 1 twice a day CEFTIN 500 MG TAB 906826 CEFUROXIME AXETIL Inactive ZOFRAN ODT 4 MG TBDP 1 pill dissolved by mouth every 4 hours if needed for nausea ZOFRAN ODT 4 MG TBDP 437839 ONDANSETRON Inactive ADULT ASPIRIN EC LOW STRENGTH 81 MG TBEC Take 1 tablet by mouth daily 2014 ADULT ASPIRIN EC LOW STRENGTH 81 MG TBEC 944188 ASPIRIN Inactive CALCIUM 600+D PLUS MINERALS 600-400 [...] or an apple NIACIN 500 MG TABS 308083 NIACIN Inactive NIASPAN 500 MG ORAL CR-TABS 1 pill nightly x 1 week, then 2 pills nightly x 1 week, then 3 pills nightly x 1 week, then 4 pills nightly NIASPAN 500 MG ORAL CR-TABS NIACIN (ANTIHYPERLIPIDEMIC) Inactive OXYCODONE HCL 5 MG ORAL CAPS 1 TAB PO Q HS OXYCODONE HCL 5 MG ORAL CAPS 6472849 OXYCODONE HCL Inactive FLUTICASONE PROPIONATE 50 MCG/ACT SUSP 1 to 2 sprays each nostril daily 04/21 FLUTICASONE PROPIONATE 50 MCG/ACT SUSP 539399 FLUTICASONE PROPIONATE Inactive POLYTRIM 58350-7.1 UNIT/ML-% SOLN 1 gtt to affected eye q3h x 7 days POLYTRIM 96435-8.1 UNIT/ML-% SOLN 096388 POLYMYXIN B- TRIMETHOPRIM Inactive CHERATUSSIN AC 100-10 MG/5ML SYRP 1 tsp by mouth every 4 hours as needed for cough CHERATUSSIN AC 100-10 MG/5ML SYRP 503507 GUAIFENESIN-CODEINE Inactive LEVOTHYROXINE SODIUM 75 MCG TABS Take 1 tab daily LEVOTHYROXINE SODIUM 75 MCG TABS 570781 LEVOTHYROXINE SODIUM Inactive BACTRIM DS 800-160 MG TAB 1 tab by mouth twice daily BACTRIM DS 800-160 MG TAB 779920 TRIMETHOPRIM-SULFAMETHOXAZOLE Inactive AZITHROMYCIN 250 MG TABS 2 po qd x 1 day, then 1 po qd x 4 days AZITHROMYCIN 250 MG TABS 5504359 AZITHROMYCIN Inactive CEFDINIR 300 MG CAPS by mouth twice a day CEFDINIR 300 MG CAPS 20020708 CEFDINIR Inactive AZITHROMYCIN 250 MG TABS 2 pills on day 1, then 1 pill daily x 4 days AZITHROMYCIN 250 MG TABS 7576282 AZITHROMYCIN Inactive DOXYCYCLINE HYCLATE 100 MG CAP 1 cap by mouth twice daily DOXYCYCLINE HYCLATE 100 MG CAP 2363048 DOXYCYCLINE HYCLATE Inactive FUROSEMIDE 20 MG TABS 1 pill by mouth daily, for edema FUROSEMIDE 20 MG TABS 457641 FUROSEMIDE Inactive AZITHROMYCIN 250 MG TABS 2 po qd x 1 day, then 1 po qd x 4 days AZITHROMYCIN 250 MG TABS 4953907 AZITHROMYCIN Inactive CEFTIN 500 MG TAB 1 twice a day CEFTIN 500 MG TAB 069595 CEFUROXIME AXETIL Inactive CEFDINIR 300 MG CAPS 1 po BID x 10 days CEFDINIR 300 MG CAPS 20020708 CEFDINIR Inactive Immunizations Vaccine Administration Date Value Standard Description Seasonal influenza vaccine, injectable, containing preservative, for > 3 years old (Afluria, FluLaval, Fluzone, Fluvirin, Fluarix, Agriflu(>=18 yo)) Fluzone (>3 yrs.) [RUB860] Influenza, seasonal, injectable influenza immunization (Flu Vax) has been administered Influenza - Unspecified Formulation [CVX88] influenza virus vaccine, unspecified formulation Seasonal influenza vaccine, injectable, containing preservative, for > 3 years old (Afluria, FluLaval, Fluzone, Fluvirin, Fluarix, Agriflu(>=18 yo)) Fluzone (>3 yrs.) [YZQ812] Influenza, seasonal, injectable pneumococcal immunization administered Pneumovax 23 [CVX33] pneumococcal polysaccharide vaccine, 23 valent dT (Diphtheria and Tetanus) booster given given Td(adult) unspecified formulation Boostrix (Tetanus toxoid, reduced diphtheria toxoid and acellular pertussis vaccine, adsorbed), booster Boostrix [XCV003] tetanus toxoid, reduced diphtheria toxoid, and acellular pertussis vaccine, adsorbed Vital Signs Date Name Value Unit Range Description blood pressure, diastolic - 8462-4 71 mm[Hg] [...] Cardio IQ Advanced Lipid and Inlammation Panel /24575 - Chemistry cholesterol, serum 148 mg/dL 775-525 2562/09/02 HDL cholesterol, serum 55 mg/dL > OR=46 [...] (L) - Chemistry sodium, serum 145 mmol/L 708-525 7791/09/02 potassium, serum 4.6 mmol/L 3.5-5.2 chloride, serum [...] 8.5-10.1 bilirubin, serum, total 0.20 mg/dL 0.00-1.00 sodium, serum 139 mmol/L 959-076 0508/03/24 carbon dioxide, venous blood 22.4 mmol/L 21.0-32.0 potassium, serum 4.2 mmol/L 3.5-5.2 Lab Report: Comp. Metabolic Panel, UADIP W/MICRO, AUTO, Thyroid Stimulat ... - Chemistry sodium, serum 143 mmol/L 131-201 2361/05/02 carbon dioxide, venous blood 25.6 mmol/L 21.0-32.0 [...] mg/dL Encounters Code Encounter Date Provider Facility CPT-62287 Level 4 Est. Patient 10:18:54 CDT Gab Padron MD [facility]-84047 Level 3 Est. Patient 11:30:07 CDT Rodrigo Sarah APRN [facility]-72745 Level 4 Est. Patient 21:02:30 SIGNAL OPERATOR TECHNICAL Gab Padron MD [facility]-51089 Level 3 Est. Patient 11:02:19 SIGNAL OPERATOR TECHNICAL Gab Padron MD [facility]-88695 Level 4 Est. Patient 22:24:31 SIGNAL OPERATOR TECHNICAL Gab Padron MD [facility]-34356 Level 3 Est. Patient 18:33:46 SIGNAL OPERATOR TECHNICAL Gab Padron MD [facility]-14067 Level 3 Est. Patient 16:19:11 CDT Yolande Lindsay MD [facility]-38830 Level 3 Est. Patient 18:59:14 CDT Yolande Lindsay MD [facility]-28875 Level 4 Est. Patient 21:29:26 CDT Yolande Lindsay MD [facility]-53823 Level 3 Est. Patient 07:37:45 CDT Yolande Lindsay MD [facility]-35324 Level 3 Est. Patient 17:03:46 CDT Yolande Lindsay MD [facility]-80717 Level 4 Est. Patient 20:02:13 SIGNAL OPERATOR TECHNICAL Yolande Lindsay MD [facility]-32860 Level 3 Est. Patient 16:02:07 SIGNAL OPERATOR TECHNICAL Alexis Ordaz MD [facility]-60770 Level 3 Est. Patient 12:41:24 SIGNAL OPERATOR TECHNICAL Yolande Lindsay MD PhD [facility]-68909 Level 3 Est. Patient 15:41:20 SIGNAL OPERATOR TECHNICAL Yolande Lindsay MD [facility]-73260 Level 3 Est. Patient 13:20:02 SIGNAL OPERATOR TECHNICAL Yolande Lindsay MD [facility]-16394 Level 3 Est. Patient 15:00:38 CDT Jared Og MD [facility]-32455 Level 3 Est. Patient 10:22:32 CDT Yolande Lindsay MD [facility]-68119 Level 3 Est. Patient 17:12:58 CDT Yolande Lindsay MD [facility]-27297 Level 4 Est. Patient 13:30:58 CDT Yolande Lindsay MD [facility]-97560 Level 4 New Patient 09:02:42 CDT Jared Og MD [facility]-75776 Level 3 Est. Patient 08:19:07 CDT Yolande Lindsay MD [facility]-93035 Level 3 Est. Patient 12:00:13 SIGNAL OPERATOR TECHNICAL Gab Padron MD [facility] CPT-53947 Level 3 Est. Patient 16:15:23 SIGNAL OPERATOR TECHNICAL Yolande Lindsay MD [facility]-86402 Level 2 Est. Patient 19:47:15 CDT Yolande Lindsay MD [facility] CPT-26869 Level 3 Est. Patient 21:38:31 CDT Yolande Lindsay MD [facility]-53709 Level 3 Est. Patient 10:25:12 CDT Adiel PERAZA [facility] CPT-24903 Level 4 Est. Patient 10:51:58 CDT Yolande Lindsay MD [facility]-96122 Level 3 Est. Patient 14:04:55 SIGNAL OPERATOR TECHNICAL Rodrigo Sarah APRN [facility]-92398 Level 3 Est. Patient 10:46:35 SIGNAL OPERATOR TECHNICAL Rodrigo Sarah [facility] CPT-38174 Level 3 Est. Patient 14:24:37 SIGNAL OPERATOR TECHNICAL Yolande Lindsay MD [facility]-01931 Level 3 Est. Patient 17:41:58 SIGNAL OPERATOR TECHNICAL Yolande Lindsay MD [facility] CPT-39038 Level 2 Est. Patient 22:01:41 SIGNAL OPERATOR TECHNICAL Rodrigo Sarah [facility] CPT-90979 Level 2 Est. Patient 22:01:11 SIGNAL OPERATOR TECHNICAL Rodrigo Sarah [facility] CPT-00139 Level 3 Est. Patient 10:12:29 SIGNAL OPERATOR TECHNICAL Rodrigo Sarah [facility] CPT-12121 Level 3 Est. Patient 11:05:44 CDT Alexis Ordaz MD [facility] CPT-16709 Level 3 Est. Patient 14:57:20 CDT Yolande Lindsay MD [facility] CPT-85678 Level 3 Est. Patient 14:40:57 CDT Yolande Lindsay MD [facility]-30733 Level 3 Est. Patient 20:55:40 CDT Yolande Lindsay MD [facility] CPT-68403 Level 3 Est. Patient 12:42:38 SIGNAL OPERATOR TECHNICAL Yolande Lindsay MD [facility]-57325 Level 3 Est. Patient 11:54:49 SIGNAL OPERATOR TECHNICAL Des Hines MD [facility]-94490 Level 3 Est. Patient 17:06:38 CDT Dewayne PERAZA [facility] Procedures Code Procedure Name Date Entry Date Standard Description CPT-70924 LS spine comp w obliq 13:28:00 SIGNAL OPERATOR TECHNICAL CPT-J1040 Depo Medrol 80 mg (Methyl Prednisolone Acetate) 10:51: 28 SIGNAL OPERATOR TECHNICAL CPT-J1100 Decadron 8mg (Dexamethasone) 10:51:28 SIGNAL OPERATOR TECHNICAL CPT-26677 Abx/Therapy Injection 10:51:28 SIGNAL OPERATOR TECHNICAL CPT-J1100 Decadron 8mg (Dexamethasone) 21:02:30 SIGNAL OPERATOR TECHNICAL CPT-J1040 Depo Medrol 80 mg (Methyl Prednisolone Acetate) 21:02: 30 SIGNAL OPERATOR TECHNICAL [id number] Event Monitor - MC Transmission 09:12:32 CDT 08/06 [id number] Event Monitor - MC review and interp 09:12:32 CDT [id number] Event Monitor - MC recording 09:12:32 CDT CPT-80168 EKG Trac and Interp 16:50:22 CDT CPT-J1030 Depo Medrol 40 mg (Methyl Prednisolone Acetate) 17:05: 54 CDT CPT-J1100 Decadron 4mg (Dexamethasone) 17:05:54 CDT CPT-40604 Abx/Therapy Injection 17:05:54 CDT CPT-J1100 Decadron 4mg (Dexamethasone) 16:55:28 CDT CPT-J1030 Depo Medrol 40 mg (Methyl Prednisolone Acetate) 16:55: 28 CDT CPT-73747 Ankle Complete - Min 3V 15:58:50 CDT CPT-65129 Knee 3V 15:58:50 CDT CPT-95133 Hip comp min 2V 15:58:50 CDT CPT-J2270 Morphine Sulfate 10 mg 14:25:44 SIGNAL OPERATOR TECHNICAL CPT-J2550 Phenergan 12.5 mg (Promethazine) 14:25:44 SIGNAL OPERATOR TECHNICAL CPT-31133 Abx/Therapy Injection 14:25:44 SIGNAL OPERATOR TECHNICAL CPT-J2550 Phenergan 12.5 mg (Promethazine) 14:08:03 SIGNAL OPERATOR TECHNICAL CPT-J2270 Morphine Sulfate 10 mg 14:08:03 SIGNAL OPERATOR TECHNICAL CPT-29812 Bladder Scan 15:00:38 CDT CPT-TCMM Transitional Care Mgmt-Moderate 09:52:22 CDT CPT-J1030 Depo Medrol 40 mg (Methyl Prednisolone Acetate) 10:55: 18 CDT CPT-J1100 Decadron 4mg (Dexamethasone) 10:55:18 CDT CPT-36017 Abx/Therapy Injection 10:55:18 CDT CPT-J1030 Depo Medrol 40 mg (Methyl Prednisolone Acetate) 10:22: 32 CDT CPT-J1100 Decadron 4mg (Dexamethasone) 10:22:32 CDT CPT-97555 Postop F/U Visit 14:37:13 CDT CPT-38003 Ankle Complete - Min 3V 17:11:58 CDT CPT-76639 Foot comp min 3V 17:11:58 CDT CPT-03650 Bladder Scan 09:56:58 CDT CPT-80362 Postop F/U Visit 09:56:58 CDT CPT-86913 Cystoscopy 09:02:42 CDT CPT-08725 Bladder Scan 09:02:42 CDT CPT-75152 Abd single AP View 16:00:35 CDT CPT-73345 Administration single or combination vaccine inc oral 10 :15:43 CDT CPT-25885 Influenza split virus > age 3 10:15:43 CDT CPT-23866 Nail Avulsion 09:24:57 CDT CPT-OV Office Visit 11:15:41 CDT CPT-08460 Abx/Therapy Injection 10:51:30 CDT CPT-J3301 Kenalog 40 mg (Triamcinolone Acetonide) 10:25:12 CDT CPT-J1100 Decadron 4mg (Dexamethasone) 10:25:12 CDT CPT-15920 Anoscopy diagnostic 10:36:12 CDT CPT-OV Office Visit 15:34:31 CDT CPT-93127 Abx/Therapy Injection 08:21:15 SIGNAL OPERATOR TECHNICAL CPT-J1885 Toradol 60 mg (Ketorolac) 10:46:35 SIGNAL OPERATOR TECHNICAL CPT-OV Office Visit 19:51:16 SIGNAL OPERATOR TECHNICAL CPT-61486 Spec Collection and Handling Fee 14:34:18 SIGNAL OPERATOR TECHNICAL CPT-PV Prev. Care Visit 14:19:18 SIGNAL OPERATOR TECHNICAL CPT-42459 Postop F/U Visit 14:47:51 SIGNAL OPERATOR TECHNICAL CPT-60782 Postop F/U Visit 15:15:14 SIGNAL OPERATOR TECHNICAL CPT-33550 Postop F/U Visit 14:41:43 CDT CPT-67623 Postop F/U Visit 15:47:46 CDT CPT-OV Office Visit 15:27:23 CDT CPT-OV Office Visit 17:20:34 CDT CPT-58826 Abx/Therapy Injection 15:05:57 CDT CPT-J1100 Decadron 8mg (Dexamethasone) 14:44:57 CDT CPT-J1040 Depo Medrol 80 mg (Methyl Prednisolone Acetate) 14:44: 57 CDT CPT-JTINJ Joint Injection 10:17:37 CDT CPT-23680 Administration 2+ single or combination vaccines inc oral 13:01:46 SIGNAL OPERATOR TECHNICAL CPT-67979 Administration single or combination vaccine inc oral 13 :01:46 SIGNAL OPERATOR TECHNICAL CPT-07590 Pneumovax 13:01:46 SIGNAL OPERATOR TECHNICAL CPT-14022 Influenza split virus > age 3 13:01:46 SIGNAL OPERATOR TECHNICAL CPT-35434 Administration single or combination vaccine inc oral 08 :56:49 CDT CPT-30360 Tdap 08:56:49 CDT
--- OUTSIDE RECORDS SUMMARY | 2017-03-22 02:44 | XMS REPORT ---
Author Author [facility] Medical Staff Organization [facility] Address [address] [id number] Phone [phone] Care Team Providers Care Supervisor Rides Name Role Phone LENKA HUTSON, EUNICE PP [phone] Summary purpose TRANSITION OF CARE AUTO GENERATION [...]
--- OUTSIDE RECORDS SUMMARY | 2017-03-22 02:44 | XMS REPORT ---
Author Author [facility] Medical Staff Organization [facility] Address [address] [place] [id number] Phone [phone] Summary purpose TRANSITION OF CARE AUTO GENERATION [...] tests and/or laboratory data RESULTS Radiology Results [id number] CT L-SPINE W/O CONT PACs Image DATE OF EXAM: Nov 20 2014 [id number] LUMBAR SPINE WO CONTRAST : RADIOLOGY REPORT [...] On: DATE OF EXAM: Nov 20 2014 [id number] LUMBAR SPINE WO CONTRAST : RADIOLOGY REPORT [...] seen. IMPRESSION: As above. Chris Lafleur DO /ok 11/20/2014 14:01:00 / 11/20/2014 14:05:21 cc:Dr. Pk Nicholson This document has been electronically Signed by: CHRIS LAFLEUR DO On: Nov 20 20145:46P Result Amended on 2014-11-20 at 17:46:33. Previous status was RI. History of procedures Procedure Code Code Type Description Date Performed Performing Physician [id number] CPT-4 CT LUMBAR SPINE W/O DYE 11-20-2014 PK NICHOLSON Functional status No functional or [...]
--- OUTSIDE RECORDS SUMMARY | 2017-03-22 02:48 | XMS REPORT | Clinical Summary ---
Author Author Admin, MARGRET Organization [employer] Address Unknown Phone Unavailable Allergies, Adverse Reactions, Alerts Allergy Name Reaction Description Start Date Severity Status Provider VALENTIN Critical Active Rodrigo Montemayorl PRODUCTION PATTERN MAKER CHLORHEXIDINE GLUCONATE tongue and gums swollen Critical Active Hoa Clarita RMA NORFLEX Rash Critical Active Silvestrellina Frazell PRODUCTION PATTERN MAKER TRAZODONE HCL sees things Critical Active [...] left ICD-719.45 Inactive Yolande Lindsay MD PhD LONG-TERM (CURRENT) USE OF OTHER MEDICATIONS ICD-V58.69 Inactive Yolande Lindsay MD PhD MUSCLE PAIN ICD-729.1 Inactive Yolande Lindsay MD PhD Sinusitis, maxillary, [...] then one daily for three days PREDNISONE 93409331253 Active Gab Padron MD Active TRIAMCINOLONE ACETONIDE 0.1 % CREA apply bid sparingly to rash TRIAMCINOLONE ACETONIDE 73040518230 No Longer Active Gab Padron MD Active TRAMADOL HCL 50 MG TABS 1 tab po every 6 hrs prn pain TRAMADOL HCL 39232672823 No Longer Active Gab Padron MD Active BACTRIM DS 800-160 MG TAB 1 tab by mouth twice daily TRIMETHOPRIM-SULFAMETHOXAZOLE 67019758980 No Longer Active Tisha Lambert PRODUCTION PATTERN MAKER Active ADVAIR DISKUS 250-50 MCG/DOSE AEPB 1 puff BID FLUTICASONE-SALMETEROL 78358093097 No Longer Active Todd Callaway MD Active ONDANSETRON 4 MG TBDP 1 q4h PRN nausea ONDANSETRON 48806095554 No Longer Active LONNIE Iglesias Active FISH OIL 1000 MG CAPS 3 pills daily OMEGA-3 FATTY ACIDS 59096340214 No Longer Active LONNIE Iglesias Active CETIRIZINE HCL 10 MG ORAL TABS 1 po qd PRN Allergies CETIRIZINE HCL 78222045056 Active Gab Padron MD Active CLARITIN 10 MG TAB 1 tablet by mouth daily as needed for allergies LORATADINE 26115371562 No Longer Active Gab Padron MD Active PREDNISONE 20 MG TAB take 3 tabs daily for 3 days, 2 tabs daily for 3 days, 1 tab daily for 3 days, 1/2 tab daily for 3 days PREDNISONE 68232701222 No Longer Active Tisha Lambert APRN Active PREDNISONE 20 MG TAB 2 tabs daily for 3 days, 1 tab daily for 3 days, 1/2 tab daily for 2 days PREDNISONE 23986043693 No Longer Active Gab Padron MD Active ZOFRAN ODT 4 MG TBDP 1 po q6hr PRN Nausea ONDANSETRON 33555224680 Active Gab Padron MD Active IBUPROFEN 600 MG TAB 1 tablet by mouth every 6 hours for 7 days, then 1 tablet every 6 hours as needed. Take with food IBUPROFEN 38846371826 Active Rodrigo Sarah APRN Active BACTRIM DS 800-160 MG TAB 1 tab by mouth twice daily TRIMETHOPRIM-SULFAMETHOXAZOLE 50325098333 No Longer Active Gab Padron MD Active LEVOTHYROXINE SODIUM 75 MCG TABS Take 1 tab daily LEVOTHYROXINE SODIUM 87782863945 No Longer Active Mariana FLEMING Active SYNTHROID 88 MCG ORAL TABS Take one by mouth daily LEVOTHYROXINE SODIUM 98683959461 Active Gab Padron MD Active CHERATUSSIN AC 100-10 MG/5ML SYRP 1 tsp by mouth every 4 hours as needed for cough GUAIFENESIN-CODEINE 04244569270 No Longer Active Gab Padron MD Active POLYTRIM 97111-9.1 UNIT/ML-% SOLN 1 gtt to affected eye q3h x 7 days POLYMYXIN B-TRIMETHOPRIM 86446760119 No Longer Active Gab Padron MD Active FLUTICASONE PROPIONATE 50 MCG/ACT SUSP 1 to 2 sprays each nostril daily 04/21 FLUTICASONE PROPIONATE 25364207064 No Longer Active Gab Padron MD Active TRILEPTAL 600 MG TABS Take one 1 tablet in Am and 1 tablet at night OXCARBAZEPINE 46282921056 Active Gab Padron MD Active CEFDINIR 300 MG CAPS 1 po BID x 10 days CEFDINIR 84645279285 No Longer Active Rodrigo Sarah APRN Active CEFTIN 500 MG TAB 1 twice a day CEFUROXIME AXETIL 44972660986 No Longer Active Gab Padron MD Active AZITHROMYCIN 250 MG TABS 2 po qd x 1 day, then 1 po qd x 4 days AZITHROMYCIN 20484791074 No Longer Active Rodrigo Sarah APRN Active OXYCODONE HCL 5 MG ORAL CAPS 1 TAB PO Q HS OXYCODONE HCL 94275422660 No Longer Active Rodrigo Sarah APRN Active NIASPAN 500 MG ORAL CR-TABS 1 pill nightly x 1 week, then 2 pills nightly x 1 week, then 3 pills nightly x 1 week, then 4 pills nightly NIACIN (ANTIHYPERLIPIDEMIC) 46563304537 No Longer Active Rodrigo Sarah APRN Active NIACIN 500 MG TABS 1 pill by mouth nightly x 1 week, then 2 pills x 1 week, then 3 pills x 1 week, then 4 pills nightly - take after evening meal, with applesauce or an apple NIACIN 28334508150 No Longer Active Yolande Lindsay MD PhD Active FUROSEMIDE 20 MG TAB 1 tablet by mouth daily FUROSEMIDE 40082443958 Active Gab Padron MD Active LISINOPRIL 20 MG ORAL TABS 1 tab by mouth daily LISINOPRIL 53027773644 Active Gab Padron MD Active FUROSEMIDE 20 MG TABS 1 pill by mouth daily, for edema FUROSEMIDE 46507425609 No Longer Active Yolande Lindsay MD PhD Active ATORVASTATIN CALCIUM 10 MG TABS 1 pill by mouth daily, for cholesterol 09/06 ATORVASTATIN CALCIUM 79294757187 Active Gab Padron MD Active CALCIUM 600+D PLUS MINERALS 600-400 MG-UNIT ORAL CHEW 1 tab by mouth daily CALCIUM CARBONATE-VIT D-MIN 77878992034 No Longer Active Yolande Lindsay MD PhD Active CYCLOBENZAPRINE HCL 10 MG TABS 1 tablet by mouth three times daily as needed for muscle spasm/pain CYCLOBENZAPRINE HCL 50702205371 Active Yolande Lindsay MD PhD Active ADULT ASPIRIN EC LOW STRENGTH 81 MG TBEC Take 1 tablet by mouth daily 2014 ASPIRIN 23759142431 No Longer Active Yolande Lindsay MD PhD Active ZOFRAN ODT 4 MG TBDP 1 pill dissolved by mouth every 4 hours if needed for nausea ONDANSETRON 27849252186 No Longer Active Yolande Lindsay MD PhD Active CEFTIN 500 MG TAB 1 twice a day CEFUROXIME AXETIL 91176721743 No Longer Active Yolande Lindsay MD PhD Active ALBUTEROL SULFATE 0.083 % NEBU SOLN one vial per nebulizer every 4-6 hours as needed ALBUTEROL SULFATE 76490813446 No Longer Active Alexis Ordaz MD Active DOXYCYCLINE HYCLATE 100 MG CAP 1 cap by mouth twice daily DOXYCYCLINE HYCLATE 99969089562 No Longer Active Yolande Lindsay MD PhD Active CYCLOBENZAPRINE HCL 10 MG TABS 1/2 - 1 tab by mouth three times daily if needed for spasms/pain CYCLOBENZAPRINE HCL 76102848576 No Longer Active Yolande Lindsay MD PhD Active AZITHROMYCIN 250 MG TABS 2 pills on day 1, then 1 pill daily x 4 days AZITHROMYCIN 25129009976 No Longer Active Yolande Lindsay MD PhD Active XOPENEX 1.25 MG/3ML NEBU 1 neb every 4 hours if needed for cough/congestion LEVALBUTEROL HCL 40057064797 No Longer Active Yolande Lindsay MD PhD Active DOXYCYCLINE HYCLATE 100 MG TAB 1 tab twice a day for 14 days 2013 DOXYCYCLINE HYCLATE 31716118416 No Longer Active Yolande Lindsay MD PhD Active PREVACID 30 MG CPDR Take 1 tablet by mouth daily-PRN LANSOPRAZOLE 57123237723 No Longer Active Yolande Lindsay MD PhD Active PA VITAMIN D-3 2000 UNIT CAPS 1 CAP PO DAILY CHOLECALCIFEROL 06158665347 No Longer Active Yolande Lindsay MD PhD Active CEFDINIR 300 MG CAPS by mouth twice a day CEFDINIR 48476353503 No Longer Active Gab Padron MD Active TOPAMAX 50 MG TABS 1 PO twice daily TOPIRAMATE 92599021098 Active Yolande Lindsay MD PhD Active AZITHROMYCIN 250 MG TABS 2 po qd x 1 day, then 1 po qd x 4 days AZITHROMYCIN 55070939957 No Longer Active oYlande Lindsay MD PhD Active DICLOFENAC SODIUM 75 MG TBEC 1 tablet by q 12 hours PRN headaches DICLOFENAC SODIUM 93813130270 No Longer Active Yolande Lindsay MD PhD Active FLONASE 50 MCG/ACT SUSP 1 spray each nostril am and hs FLUTICASONE PROPIONATE 78191849138 No Longer Active Todd Callaway MD Active ANUSOL-HC 25 MG SUPPOSITORY 1 rectally twice a day as needed for hemorrhoids HYDROCORTISONE JAYDEN (RECTAL) 28442171379 No Longer Active Yolande Lindsay MD PhD Active ANUSOL-HC 25 MG SUPPOSITORY 1 suppository rectally each evening as needed for anal fissure HYDROCORTISONE JAYDEN (RECTAL) 01673450150 No Longer Active LONNIE Iglesias Active VALIUM 5 MG TAB 1 po 30 minutes prior to your MRI DIAZEPAM 64402326985 No Longer Active LONNIE Iglesias Active METHOCARBAMOL 750 MG TABS 1 PO QID PRN METHOCARBAMOL 14155251009 No Longer Active Daphne Wetzel APRN Active NITROSTAT 0.4 MG SUBL as directed NITROGLYCERIN 72216750546 No Longer Active Rodrigo Sarah APRN Active ROBAXIN-750 750 MG TABS 2 four times a day for 3 days as needed for muscle spasm, then 1 four times a day as needed METHOCARBAMOL 84332657141 No Longer Active Silvestrellnacho Sarah APRN Active HYDROCODONE-ACETAMINOPHEN 5-325 MG TABS 1 q 4-6 hrs prn HYDROCODONE-ACETAMINOPHEN 67692887409 No Longer Active Rodrigo Sarah APRN Active VERAPAMIL HCL CR 180 MG CR-TABS TAKE 1 TAB DAILY VERAPAMIL HCL 67504327885 No Longer Active Yolande Lindsay MD PhD Active BACTRIM DS 800-160 MG TAB 1 tab by mouth twice daily TRIMETHOPRIM-SULFAMETHOXAZOLE 44712062758 No Longer Active Yolande Lindsay MD PhD Active NEXIUM 40 MG PACK 1 by mouth daily ESOMEPRAZOLE MAGNESIUM 56342609316 No Longer Active Des Hines MD Active EPIPEN 2-CHARLETTE 0.3 MG/0.3ML OMARI as need for allergic reaction EPINEPHRINE 37746056312 Active Yolande Lindsay MD PhD Active NEXIUM 40 MG CPDR 1 PO Q D DAY ESOMEPRAZOLE MAGNESIUM 25933242362 No Longer Active Sadia Perry RN Active NEXIUM 40 MG PACK 1 by mouth daily NEXIUM 40 MG PACK ESOMEPRAZOLE MAGNESIUM Inactive VERAPAMIL HCL CR 180 MG CR-TABS TAKE 1 TAB DAILY VERAPAMIL HCL CR 180 MG CR-TABS VERAPAMIL HCL Inactive HYDROCODONE-ACETAMINOPHEN 5-325 MG TABS 1 q 4-6 hrs prn HYDROCODONE-ACETAMINOPHEN 5-325 MG TABS 555044 HYDROCODONE-ACETAMINOPHEN Inactive ROBAXIN-750 750 MG TABS 2 four times a day for 3 days as needed for muscle spasm, then 1 four times a day as needed ROBAXIN-750 750 MG TABS 196534 METHOCARBAMOL Inactive NITROSTAT 0.4 MG SUBL as directed NITROSTAT 0.4 MG SUBL 746025 NITROGLYCERIN Inactive METHOCARBAMOL 750 MG TABS 1 PO QID PRN METHOCARBAMOL 750 MG TABS 888780 METHOCARBAMOL Inactive VALIUM 5 MG TAB 1 po 30 minutes prior to your MRI VALIUM 5 MG TAB 941523 DIAZEPAM Inactive ANUSOL-HC 25 MG SUPPOSITORY 1 suppository rectally each evening as needed for anal fissure ANUSOL-HC 25 MG SUPPOSITORY 6810401 HYDROCORTISONE JAYDEN (RECTAL) Inactive ANUSOL-HC 25 MG SUPPOSITORY 1 rectally twice a day as needed for hemorrhoids ANUSOL-HC 25 MG SUPPOSITORY 6542638 HYDROCORTISONE JAYDEN (RECTAL) Inactive FLONASE 50 MCG/ACT SUSP 1 spray each nostril am and hs FLONASE 50 MCG/ACT SUSP 6161284 FLUTICASONE PROPIONATE Inactive DICLOFENAC SODIUM 75 MG TBEC 1 tablet by q 12 hours PRN headaches DICLOFENAC SODIUM 75 MG TBEC 858282 DICLOFENAC SODIUM Inactive PA VITAMIN D-3 2000 UNIT CAPS 1 CAP PO DAILY PA VITAMIN D-3 2000 UNIT CAPS CHOLECALCIFEROL Inactive PREVACID 30 MG CPDR Take 1 tablet by mouth daily-PRN PREVACID 30 MG CPDR 550551 LANSOPRAZOLE Inactive DOXYCYCLINE HYCLATE 100 MG TAB 1 tab twice a day for 14 days 2013 DOXYCYCLINE HYCLATE 100 MG TAB 4326256 DOXYCYCLINE HYCLATE Inactive XOPENEX 1.25 MG/3ML NEBU 1 neb every 4 hours if needed for cough/congestion XOPENEX 1.25 MG/3ML NEBU 690451 LEVALBUTEROL HCL Inactive CYCLOBENZAPRINE HCL 10 MG TABS 1/2 - 1 tab by mouth three times daily if needed for spasms/pain CYCLOBENZAPRINE HCL 10 MG TABS 752619 CYCLOBENZAPRINE HCL Inactive ALBUTEROL SULFATE 0.083 % NEBU SOLN one vial per nebulizer every 4-6 hours as needed ALBUTEROL SULFATE 0.083 % NEBU SOLN 533869 ALBUTEROL SULFATE Inactive CEFTIN 500 MG TAB 1 twice a day CEFTIN 500 MG TAB 676852 CEFUROXIME AXETIL Inactive ZOFRAN ODT 4 MG TBDP 1 pill dissolved by mouth every 4 hours if needed for nausea ZOFRAN ODT 4 MG TBDP 112355 ONDANSETRON Inactive ADULT ASPIRIN EC LOW STRENGTH 81 MG TBEC Take 1 tablet by mouth daily 2014 ADULT ASPIRIN EC LOW STRENGTH 81 MG TBEC 536244 ASPIRIN Inactive CALCIUM 600+D PLUS MINERALS 600-400 [...] or an apple NIACIN 500 MG TABS 767515 NIACIN Inactive NIASPAN 500 MG ORAL CR-TABS 1 pill nightly x 1 week, then 2 pills nightly x 1 week, then 3 pills nightly x 1 week, then 4 pills nightly NIASPAN 500 MG ORAL CR-TABS NIACIN (ANTIHYPERLIPIDEMIC) Inactive OXYCODONE HCL 5 MG ORAL CAPS 1 TAB PO Q HS OXYCODONE HCL 5 MG ORAL CAPS 3780846 OXYCODONE HCL Inactive FLUTICASONE PROPIONATE 50 MCG/ACT SUSP 1 to 2 sprays each nostril daily 04/21 FLUTICASONE PROPIONATE 50 MCG/ACT SUSP 1940577 FLUTICASONE PROPIONATE Inactive POLYTRIM 85191-1.1 UNIT/ML-% SOLN 1 gtt to affected eye q3h x 7 days POLYTRIM 27198-6.1 UNIT/ML-% SOLN 972924 POLYMYXIN B- TRIMETHOPRIM Inactive CHERATUSSIN AC 100-10 MG/5ML SYRP 1 tsp by mouth every 4 hours as needed for cough CHERATUSSIN AC 100-10 MG/5ML SYRP 791719 GUAIFENESIN-CODEINE Inactive LEVOTHYROXINE SODIUM 75 MCG TABS Take 1 tab daily LEVOTHYROXINE SODIUM 75 MCG TABS 460606 LEVOTHYROXINE SODIUM Inactive CLARITIN 10 MG TAB 1 tablet by mouth daily as needed for allergies CLARITIN 10 MG TAB 959892 LORATADINE Inactive FISH OIL 1000 MG CAPS 3 pills daily FISH OIL 1000 MG CAPS OMEGA-3 FATTY ACIDS Inactive ONDANSETRON 4 MG TBDP 1 q4h PRN nausea ONDANSETRON 4 MG TBDP 063716 ONDANSETRON Inactive ADVAIR DISKUS 250-50 MCG/DOSE AEPB 1 puff BID ADVAIR DISKUS 250-50 MCG/DOSE AEPB FLUTICASONE-SALMETEROL Inactive TRAMADOL HCL 50 MG TABS 1 tab po every 6 hrs prn pain TRAMADOL HCL 50 MG TABS 307301 TRAMADOL HCL Inactive TRIAMCINOLONE ACETONIDE 0.1 % CREA apply bid sparingly to rash TRIAMCINOLONE ACETONIDE 0.1 % CREA 5178162 TRIAMCINOLONE ACETONIDE Inactive BACTRIM DS 800-160 MG TAB 1 tab by mouth twice daily BACTRIM DS 800-160 MG TAB 181502 TRIMETHOPRIM-SULFAMETHOXAZOLE Inactive AZITHROMYCIN 250 MG TABS 2 po qd x 1 day, then 1 po qd x 4 days AZITHROMYCIN 250 MG TABS 6467020 AZITHROMYCIN Inactive CEFDINIR 300 MG CAPS by mouth twice a day CEFDINIR 300 MG CAPS 950270 CEFDINIR Inactive AZITHROMYCIN 250 MG TABS 2 pills on day 1, then 1 pill daily x 4 days AZITHROMYCIN 250 MG TABS 1778207 AZITHROMYCIN Inactive DOXYCYCLINE HYCLATE 100 MG CAP 1 cap by mouth twice daily DOXYCYCLINE HYCLATE 100 MG CAP 9699438 DOXYCYCLINE HYCLATE Inactive FUROSEMIDE 20 MG TABS 1 pill by mouth daily, for edema FUROSEMIDE 20 MG TABS 458353 FUROSEMIDE Inactive AZITHROMYCIN 250 MG TABS 2 po qd x 1 day, then 1 po qd x 4 days AZITHROMYCIN 250 MG TABS 3750111 AZITHROMYCIN Inactive CEFTIN 500 MG TAB 1 twice a day CEFTIN 500 MG TAB 123794 CEFUROXIME AXETIL Inactive CEFDINIR 300 MG CAPS 1 po BID x 10 days CEFDINIR 300 MG CAPS 014749 CEFDINIR Inactive BACTRIM DS 800-160 MG TAB 1 tab by mouth twice daily BACTRIM DS 800-160 MG TAB 19820606 TRIMETHOPRIM-SULFAMETHOXAZOLE Inactive PREDNISONE 20 MG TAB 2 tabs daily for 3 days, 1 tab daily for 3 days, 1/2 tab daily for 2 days PREDNISONE 20 MG TAB 331686 PREDNISONE Inactive PREDNISONE 20 MG TAB take 3 tabs daily for 3 days, 2 tabs daily for 3 days, 1 tab daily for 3 days, 1/2 tab daily for 3 days PREDNISONE 20 MG TAB 627437 PREDNISONE Inactive BACTRIM DS 800-160 MG TAB 1 tab by mouth twice daily BACTRIM DS 800-160 MG TAB 19820606 TRIMETHOPRIM-SULFAMETHOXAZOLE Inactive Immunizations Vaccine Administration Date Value Standard Description Seasonal influenza vaccine, injectable, containing preservative, for > 3 years old (Afluria, FluLaval, Fluzone, Fluvirin, Fluarix, Agriflu(>=18 yo)) Fluzone (>3 yrs.) [[id number]] Influenza, seasonal, injectable influenza immunization (Flu Vax) has been administered Influenza - Unspecified Formulation [CVX88] influenza virus vaccine, unspecified formulation pneumococcal immunization administered Pneumovax 23 [CVX33] pneumococcal polysaccharide vaccine, 23 valent Seasonal influenza vaccine, injectable, containing preservative, for > 3 years old (Afluria, FluLaval, Fluzone, Fluvirin, Fluarix, Agriflu(>=18 yo)) Fluzone (>3 yrs.) [RBD335] Influenza, seasonal, injectable dT (Diphtheria and Tetanus) booster given given Td(adult) unspecified formulation Boostrix (Tetanus toxoid, reduced diphtheria toxoid and acellular pertussis vaccine, adsorbed), booster Boostrix [CGJ543] tetanus toxoid, reduced diphtheria toxoid, and acellular [...] PANEL - Chemistry cholesterol, serum 166 mg/dL 091-284 0969/12/06 triglyceride, serum, fasting 86 mg/dL 30-200 HDL [...] negative Encounters Code Encounter Date Provider Facility CPT-63347 Level 3 Est. Patient 14:50:29 CDT Gab Padron MD [facility] CPT-96323 Level 3 Est. Patient 14:46:09 CDT Tisha Lambert APRN [facility] CPT-68392 Level 4 New Patient 16:13:15 CDT Todd Callaway MD [facility] CPT-92315 Level 4 Est. Patient 13:18:33 CDT Gab Padron MD [facility] CPT-82449 Level 3 Est. Patient 15:20:50 CDT Jared Og MD [facility] CPT-78274 Level 3 Est. Patient 17:43:55 TAX AUDITOR Gab Padron MD [facility] CPT-84820 Level 3 Est. Patient 17:07:49 TAX AUDITOR Jared Og MD [facility] CPT-31634 Level 4 Est. Patient 19:55:18 TAX AUDITOR Jared Og MD [facility] CPT-56099 Level 3 Est. Patient 20:13:34 TAX AUDITOR Jared Og MD [facility] CPT-73339 Level 4 Est. Patient 16:31:27 CDT Gab Padron MD [facility] CPT-64991 Level 2 Est. Patient 12:23:38 CDT Jared Og MD [facility] CPT-17735 Level 3 Est. Patient 11:01:51 CDT Gab Padron MD [facility] CPT-97162 Level 3 Est. Patient 15:27:02 CDT Jared Og MD [facility] [place] CPT-40883 Level 4 Est. Patient 09:25:27 CDT Gab Padron MD [facility]-40746 Level 3 Est. Patient 10:29:41 [facility] Patient 17:51:05 CDT aGb Padron MD [facility]-05703 Level 3 Est. Patient 14:18:08 CDT Gab Padron MD [facility]-86829 Level 4 Est. Patient 10:18:54 CDT Gab Padron MD [facility]-68369 Level 3 Est. Patient 11:30:07 CDT Rodrigo Sarah [facility]-29284 Level 4 Est. Patient 21:02:30 TAX AUDITOR Gab Padron MD [facility]-17694 Level 3 Est. Patient 11:02:19 TAX AUDITOR Gab Padron MD [facility] CPT-76331 Level 4 Est. Patient 22:24:31 TAX AUDITOR Gab Padron MD [facility]-65702 Level 3 Est. Patient 18:33:46 TAX AUDITOR Gab Padron MD [facility]-60863 Level 3 Est. Patient 16:19:11 CDT Yolande Lindsay MD [facility]-83604 Level 3 Est. Patient 18:59:14 CDT Yolande Lindsay MD [facility]-42459 Level 4 Est. Patient 21:29:26 CDT Yolande Lindsay MD [facility]-66656 Level 3 Est. Patient 07:37:45 CDT Yolande Lindsay MD [facility]-53963 Level 3 Est. Patient 17:03:46 CDT Yolande Lindsay MD [facility]-59195 Level 4 Est. Patient 20:02:13 TAX AUDITOR Yolande Lindsay MD [facility] CPT-14012 Level 3 Est. Patient 16:02:07 TAX AUDITOR Alexis Ordaz MD [facility]-41803 Level 3 Est. Patient 12:41:24 TAX AUDITOR Yolande Lindsay MD [facility]-67549 Level 3 Est. Patient 15:41:20 TAX AUDITOR Yolande Lindsay MD [facility]-45616 Level 3 Est. Patient 13:20:02 TAX AUDITOR Yolande Lindsay MD [facility]-82636 Level 3 Est. Patient 15:00:38 CDT Jared Og MD [facility]-55244 Level 3 Est. Patient 10:22:32 CDT Yolande Lindsay MD [facility] CPT-79833 Level 3 Est. Patient 17:12:58 CDT Yolande Lindsay MD [facility] CPT-30436 Level 4 Est. Patient 13:30:58 CDT Yolande Lindsay MD [facility] CPT-58892 Level 4 New Patient 09:02:42 CDT Jared Og MD [facility] CPT-57038 Level 3 Est. Patient 08:19:07 CDT Yolande Lindsay MD [facility] CPT-40163 Level 3 Est. Patient 12:00:13 TAX AUDITOR Gab Padron MD [facility] CPT-31180 Level 3 Est. Patient 16:15:23 TAX AUDITOR Yolande Lindsay MD [facility]-59631 Level 2 Est. Patient 19:47:15 CDT Yolande Lindsay MD [facility]-71407 Level 3 Est. Patient 21:38:31 CDT Yolande Lindsay MD [facility]-42935 Level 3 Est. Patient 10:25:12 CDT Adiel PERAZA [facility]-08891 Level 4 Est. Patient 10:51:58 CDT Yolande Lindsay MD [facility]-51388 Level 3 Est. Patient 14:04:55 TAX AUDITOR Rodrigo Sarah [facility]-09410 Level 3 Est. Patient 10:46:35 TAX AUDITOR Rodrigo Sarah [facility] CPT-12916 Level 3 Est. Patient 14:24:37 TAX AUDITOR Yolande Lindsay MD [facility]-69203 Level 3 Est. Patient 17:41:58 TAX AUDITOR Yolande Lindsay MD [facility]-59104 Level 2 Est. Patient 22:01:41 TAX AUDITOR Rodrigo Sarah [facility] CPT-72951 Level 2 Est. Patient 22:01:11 TAX AUDITOR Rodrigo Sarah [facility]-67549 Level 3 Est. Patient 10:12:29 TAX AUDITOR Rodrigo Sarah [facility]-50683 Level 3 Est. Patient 11:05:44 CDT Alexis Ordaz MD [facility]-00580 Level 3 Est. Patient 14:57:20 CDT Yolande Lindsay MD [facility]-03868 Level 3 Est. Patient 14:40:57 CDT Yolande Lindsay MD [facility]-09708 Level 3 Est. Patient 20:55:40 CDT Yolande Lindsay MD [facility]-15379 Level 3 Est. Patient 12:42:38 TAX AUDITOR Yolande Lindsay MD [facility]68940 Level 3 Est. Patient 11:54:49 TAX AUDITOR Des Hines MD [facility] CPT-24258 Level 3 Est. Patient 17:06:38 CDT Dewayne PERAZA [facility] Procedures Code Procedure Name Date Entry Date Standard Description CPT-J2930 Solu Medrol 125 mg (Methyl Prednisolone Sodium Succinate) 13:19:02 CDT CPT-52825 Abx/Therapy Injection 13:19:02 CDT CPT-J2930 Solu Medrol 125 mg (Methyl Prednisolone Sodium Succinate) 13:05:03 CDT CPT-96852 Hip, complete, 2-3 views - XRAY USE ONLY 17:19:04 TAX AUDITOR CPT-06252 Venipuncture Draw Fee 08:37:59 TAX AUDITOR CPT-93010 Liver Profile - LAB USE ONLY 08:37:59 TAX AUDITOR CPT-93705 Lipid - LAB USE ONLY 08:37:58 TAX AUDITOR CPT-05623 First Vx - Ix admin via ID IM or jet injects without counseling by physician 11:52:31 CDT CPT-02439 Fluzone Preservative Free Intramuscular Suspension 11:52 :31 CDT CPT-59557 Foot, left, comp min 3V - XRAY USE ONLY 09:24:54 CDT CPT-56736 Abd single AP View - XRAY USE ONLY 11:16:17 CDT CPT-67295 T spine AP/ Lat - XRAY USE ONLY 09:34:21 CDT CPT-42515 Chest 2V Frontal and Lat - XRAY USE ONLY 10:48:51 CDT CPT-81337 LS spine comp w obliq 13:28:00 TAX AUDITOR CPT-J1040 Depo Medrol 80 mg (Methyl Prednisolone Acetate) 10:51: 28 TAX AUDITOR CPT-J1100 Decadron 8mg (Dexamethasone) 10:51:28 TAX AUDITOR CPT-30584 Abx/Therapy Injection 10:51:28 TAX AUDITOR CPT-J1100 Decadron 8mg (Dexamethasone) 21:02:30 TAX AUDITOR CPT-J1040 Depo Medrol 80 mg (Methyl Prednisolone Acetate) 21:02: 30 TAX AUDITOR [id number] Event Monitor - MC Transmission 09:12:32 CDT 08/06 [id number] Event Monitor - MC review and interp 09:12:32 CDT [id number] Event Monitor - MC recording 09:12:32 CDT CPT-80117 EKG Trac and Interp 16:50:22 CDT CPT-J1030 Depo Medrol 40 mg (Methyl Prednisolone Acetate) 17:05: 54 CDT CPT-J1100 Decadron 4mg (Dexamethasone) 17:05:54 CDT CPT-43847 Abx/Therapy Injection 17:05:54 CDT CPT-J1100 Decadron 4mg (Dexamethasone) 16:55:28 CDT CPT-J1030 Depo Medrol 40 mg (Methyl Prednisolone Acetate) 16:55: 28 CDT CPT-00018 Ankle Complete - Min 3V 15:58:50 CDT CPT-07287 Knee 3V 15:58:50 CDT CPT-40678 Hip comp min 2V 15:58:50 CDT CPT-J2270 Morphine Sulfate 10 mg 14:25:44 TAX AUDITOR CPT-J2550 Phenergan 12.5 mg (Promethazine) 14:25:44 TAX AUDITOR CPT-59928 Abx/Therapy Injection 14:25:44 TAX AUDITOR CPT-J2550 Phenergan 12.5 mg (Promethazine) 14:08:03 TAX AUDITOR CPT-J2270 Morphine Sulfate 10 mg 14:08:03 TAX AUDITOR CPT-26073 Bladder Scan 15:00:38 CDT CPT-TCMM Transitional Care Mgmt-Moderate 09:52:22 CDT CPT-J1030 Depo Medrol 40 mg (Methyl Prednisolone Acetate) 10:55: 18 CDT CPT-J1100 Decadron 4mg (Dexamethasone) 10:55:18 CDT CPT-11194 Abx/Therapy Injection 10:55:18 CDT CPT-J1030 Depo Medrol 40 mg (Methyl Prednisolone Acetate) 10:22: 32 CDT CPT-J1100 Decadron 4mg (Dexamethasone) 10:22:32 CDT CPT-25896 Postop F/U Visit 14:37:13 CDT CPT-04675 Ankle Complete - Min 3V 17:11:58 CDT CPT-47785 Foot comp min 3V 17:11:58 CDT CPT-68006 Bladder Scan 09:56:58 CDT CPT-14273 Postop F/U Visit 09:56:58 CDT CPT-98227 Cystoscopy 09:02:42 CDT CPT-84983 Bladder Scan 09:02:42 CDT CPT-71472 Abd single AP View 16:00:35 CDT CPT-30540 Administration single or combination vaccine inc oral 10 :15:43 CDT CPT-98468 Influenza split virus > age 3 10:15:43 CDT CPT-79744 Nail Avulsion 09:24:57 CDT CPT-OV Office Visit 11:15:41 CDT CPT-70062 Abx/Therapy Injection 10:51:30 CDT CPT-J3301 Kenalog 40 mg (Triamcinolone Acetonide) 10:25:12 CDT CPT-J1100 Decadron 4mg (Dexamethasone) 10:25:12 CDT CPT-91913 Anoscopy diagnostic 10:36:12 CDT CPT-OV Office Visit 15:34:31 CDT CPT-89579 Abx/Therapy Injection 08:21:15 TAX AUDITOR CPT-J1885 Toradol 60 mg (Ketorolac) 10:46:35 TAX AUDITOR CPT-OV Office Visit 19:51:16 TAX AUDITOR CPT-00531 Spec Collection and Handling Fee 14:34:18 TAX AUDITOR CPT-PV Prev. Care Visit 14:19:18 TAX AUDITOR CPT-86084 Postop F/U Visit 14:47:51 TAX AUDITOR CPT-72377 Postop F/U Visit 15:15:14 TAX AUDITOR CPT-55634 Postop F/U Visit 14:41:43 CDT CPT-05759 Postop F/U Visit 15:47:46 CDT CPT-OV Office Visit 15:27:23 CDT CPT-OV Office Visit 17:20:34 CDT CPT-32178 Abx/Therapy Injection 15:05:57 CDT CPT-J1100 Decadron 8mg (Dexamethasone) 14:44:57 CDT CPT-J1040 Depo Medrol 80 mg (Methyl Prednisolone Acetate) 14:44: 57 CDT CPT-JTINJ Joint Injection 10:17:37 CDT CPT-57553 Administration 2+ single or combination vaccines inc oral 13:01:46 TAX AUDITOR CPT-46115 Administration single or combination vaccine inc oral 13 :01:46 TAX AUDITOR CPT-20559 Pneumovax 13:01:46 TAX AUDITOR CPT-15644 Influenza split virus > age 3 13:01:46 TAX AUDITOR CPT-71053 Administration single or combination vaccine inc oral 08 :56:49 CDT CPT-71251 Tdap 08:56:49 CDT
--- OUTSIDE RECORDS SUMMARY | 2017-03-22 02:50 | XMS REPORT | Clinical Summary ---
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 Jillina Frazellilian ZAPATAN 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 Anemia 285.9 Active Gab Padron MD Anemia, unspecified Conjunctivitis 372.30 Active Jillnacho Sarah APRN Conjunctivitis, unspecified Sinusitis 473.[address] PATCHER Unspecified sinusitis (chronic) Nonspecific syndrome suggestive of viral illness 079.[address] PATCHER Unspecified viral infection Laryngitis 464.00 Active Rodrigo [...] MCG/DOSE AEPB 1 puff BID FLUTICASONE- SALMETEROL 28238553079 Active Rodrigo Sarah ROAD PATCHER Active LEVOTHYROXINE SODIUM 75 MCG TABS Take 1 tab daily LEVOTHYROXINE SODIUM 15051399977 No Longer Active Mariana HICKEYA Active SYNTHROID 88 MCG ORAL TABS Take one by mouth daily LEVOTHYROXINE SODIUM 36957703489 Active Mariana HICKEYA Active CHERATUSSIN AC 100-10 MG/5ML SYRP 1 tsp by mouth every 4 hours as needed for cough GUAIFENESIN-CODEINE 15127847207 No Longer Active Gab Padron MD Active POLYTRIM 44445-1.1 UNIT/ML-% SOLN 1 gtt to affected eye q3h x 7 days POLYMYXIN B-TRIMETHOPRIM 64700421367 No Longer Active Gab Padron MD Active FLUTICASONE PROPIONATE 50 MCG/ACT SUSP 1 to 2 sprays each nostril daily 04/21 FLUTICASONE PROPIONATE 67638424272 No Longer Active Gab Padron MD Active TRILEPTAL 600 MG TABS Take one 1 tablet in Am and 1 tablet at night OXCARBAZEPINE 24728023457 Active Gab Padron MD Active CEFDINIR 300 MG CAPS 1 po BID x 10 days CEFDINIR 41740713077 No Longer Active Rodrigo Sarah APRN Active CEFTIN 500 MG TAB 1 twice a day CEFUROXIME AXETIL 69923171684 No Longer Active Gab Padron MD Active AZITHROMYCIN 250 MG TABS 2 po qd x 1 day, then 1 po qd x 4 days AZITHROMYCIN 63894321642 No Longer Active Rodrigo Sarah APRN Active CLARITIN 10 MG TAB 1 tablet by mouth daily as needed for allergies LORATADINE 48679062336 Active Silvestrellnacho Sarah APRN Active OXYCODONE HCL 5 MG ORAL CAPS 1 TAB PO Q HS OXYCODONE HCL 14162897575 No Longer Active Rodrigo Sarah APRN Active NIASPAN 500 MG ORAL CR-TABS 1 pill nightly x 1 week, then 2 pills nightly x 1 week, then 3 pills nightly x 1 week, then 4 pills nightly NIACIN (ANTIHYPERLIPIDEMIC) 62135923605 No Longer Active Silvestrellnacho Sarah APRN Active NIACIN 500 MG TABS 1 pill by mouth nightly x 1 week, then 2 pills x 1 week, then 3 pills x 1 week, then 4 pills nightly - take after evening meal, with applesauce or an apple NIACIN 55453931131 No Longer Active Yolande Lindsay MD PhD Active FISH OIL 1000 MG CAPS 3 pills daily OMEGA-3 FATTY ACIDS 88015717912 Active Yolande Lindsay MD PhD Active TRIAMCINOLONE ACETONIDE 0.1 % CREA apply bid sparingly to rash TRIAMCINOLONE ACETONIDE 83525313335 Active Yolande Lindsay MD PhD Active FUROSEMIDE 20 MG TAB 1 tablet by mouth daily FUROSEMIDE 26230420158 Active Yolande Lindsay MD PhD Active LISINOPRIL 20 MG ORAL TABS 1 tab by mouth daily LISINOPRIL 49244688677 Active Gab Padron MD Active FUROSEMIDE 20 MG TABS 1 pill by mouth daily, for edema FUROSEMIDE 56492199171 No Longer Active Yolande Lindsay MD PhD Active ATORVASTATIN CALCIUM 10 MG TABS 1 pill by mouth daily, for cholesterol 09/06 ATORVASTATIN CALCIUM 15304091151 Active Yolande Lindsay MD PhD Active CALCIUM 600+D PLUS MINERALS 600-400 MG-UNIT ORAL CHEW 1 tab by mouth daily CALCIUM CARBONATE-VIT D-MIN 05794571768 No Longer Active Yolande Lindsay MD PhD Active CYCLOBENZAPRINE HCL 10 MG TABS 1 tablet by mouth three times daily as needed for muscle spasm/pain CYCLOBENZAPRINE HCL 02410369119 Active Yolande Lindsay MD PhD Active ONDANSETRON 4 MG TBDP 1 q4h PRN nausea ONDANSETRON 31101758496 Active Yolande Lindsay MD PhD Active ADULT ASPIRIN EC LOW STRENGTH 81 MG TBEC Take 1 tablet by mouth daily 2014 ASPIRIN 41230165976 No Longer Active Yolande Lindsay MD PhD Active ZOFRAN ODT 4 MG TBDP 1 pill dissolved by mouth every 4 hours if needed for nausea ONDANSETRON 19335938774 No Longer Active Yolande Lindsay MD PhD Active CEFTIN 500 MG TAB 1 twice a day CEFUROXIME AXETIL 39432506322 No Longer Active Yolande Lindsay MD PhD Active ALBUTEROL SULFATE 0.083 % NEBU SOLN one vial per nebulizer every 4-6 hours as needed ALBUTEROL SULFATE 82215749977 No Longer Active Alexis Ordaz MD Active DOXYCYCLINE HYCLATE 100 MG CAP 1 cap by mouth twice daily DOXYCYCLINE HYCLATE 54274630292 No Longer Active Yolande Lindsay MD PhD Active CYCLOBENZAPRINE HCL 10 MG TABS 1/2 - 1 tab by mouth three times daily if needed for spasms/pain CYCLOBENZAPRINE HCL 22719955858 No Longer Active Yolande Lindsay MD PhD Active AZITHROMYCIN 250 MG TABS 2 pills on day 1, then 1 pill daily x 4 days AZITHROMYCIN 66727929725 No Longer Active Yolande Lindsay MD PhD Active XOPENEX 1.25 MG/3ML NEBU 1 neb every 4 hours if needed for cough/congestion LEVALBUTEROL HCL 61035015059 No Longer Active Yolande Lindsay MD PhD Active DOXYCYCLINE HYCLATE 100 MG TAB 1 tab twice a day for 14 days 2013 DOXYCYCLINE HYCLATE 75991989949 No Longer Active Yolande Lindsay MD PhD Active PREVACID 30 MG CPDR Take 1 tablet by mouth daily-PRN LANSOPRAZOLE 58614959319 No Longer Active Yolande Lindsay MD PhD Active PA VITAMIN D-3 2000 UNIT CAPS 1 CAP PO DAILY CHOLECALCIFEROL 80994167728 No Longer Active Yolande Lindsay MD PhD Active CEFDINIR 300 MG CAPS by mouth twice a day CEFDINIR 15795543686 No Longer Active Gab Padron MD Active TOPAMAX 50 MG TABS 1 PO twice daily TOPIRAMATE 82314031869 Active Yolande Lindsay MD PhD Active AZITHROMYCIN 250 MG TABS 2 po qd x 1 day, then 1 po qd x 4 days AZITHROMYCIN 03226259278 No Longer Active Yolande Lindsay MD PhD Active DICLOFENAC SODIUM 75 MG TBEC 1 tablet by q 12 hours PRN headaches DICLOFENAC SODIUM 31807054168 No Longer Active Yolande Lindsay MD PhD Active FLONASE 50 MCG/ACT SUSP 1 spray each nostril am and hs FLUTICASONE PROPIONATE 49521140806 No Longer Active Todd Callaway MD Active ANUSOL-HC 25 MG SUPPOSITORY 1 rectally twice a day as needed for hemorrhoids HYDROCORTISONE JAYDEN (RECTAL) 38497373283 No Longer Active Yolande Lindsay MD PhD Active ANUSOL-HC 25 MG SUPPOSITORY 1 suppository rectally each evening as needed for anal fissure HYDROCORTISONE JAYDEN (RECTAL) 67755063804 No Longer Active LONNIE Iglesias Active VALIUM 5 MG TAB 1 po 30 minutes prior to your MRI DIAZEPAM 86765732366 No Longer Active LONNIE Iglesias Active METHOCARBAMOL 750 MG TABS 1 PO QID PRN METHOCARBAMOL 93202281790 No Longer Active Daphne Wetzel APRN Active NITROSTAT 0.4 MG SUBL as directed NITROGLYCERIN 22346823083 No Longer Active Rodrigo Sarah APRN Active ROBAXIN-750 750 MG TABS 2 four times a day for 3 days as needed for muscle spasm, then 1 four times a day as needed METHOCARBAMOL 66075474392 No Longer Active Rodrigo Sarah APRN Active HYDROCODONE-ACETAMINOPHEN 5-325 MG TABS 1 q 4-6 hrs prn HYDROCODONE-ACETAMINOPHEN 49934725434 No Longer Active Rodrigo Sarah APRN Active VERAPAMIL HCL CR 180 MG CR-TABS TAKE 1 TAB DAILY VERAPAMIL HCL 41036837846 No Longer Active Yolande Lindsay MD PhD Active BACTRIM DS 800-160 MG TAB 1 tab by mouth twice daily TRIMETHOPRIM-SULFAMETHOXAZOLE 69170038619 No Longer Active Yolande Lindsay MD PhD Active NEXIUM 40 MG PACK 1 by mouth daily ESOMEPRAZOLE MAGNESIUM 00065093462 No Longer Active Des Hines MD Active EPIPEN 2-CHARLETTE 0.3 MG/0.3ML OMARI as need for allergic reaction EPINEPHRINE 17552249231 Active Yolande Lindsay MD PhD Active NEXIUM 40 MG CPDR 1 PO Q D DAY ESOMEPRAZOLE MAGNESIUM 19409923973 No Longer Active Sadia Perry RN Active NEXIUM 40 MG PACK 1 by mouth daily NEXIUM 40 MG PACK ESOMEPRAZOLE MAGNESIUM Inactive VERAPAMIL HCL CR 180 MG CR-TABS TAKE 1 TAB DAILY VERAPAMIL HCL CR 180 MG CR-TABS VERAPAMIL HCL Inactive HYDROCODONE-ACETAMINOPHEN 5-325 MG TABS 1 q 4-6 hrs prn HYDROCODONE-ACETAMINOPHEN 5-325 MG TABS 695654 HYDROCODONE-ACETAMINOPHEN Inactive ROBAXIN-750 750 MG TABS 2 four times a day for 3 days as needed for muscle spasm, then 1 four times a day as needed ROBAXIN-750 750 MG TABS 508676 METHOCARBAMOL Inactive NITROSTAT 0.4 MG SUBL as directed NITROSTAT 0.4 MG SUBL NITROGLYCERIN Inactive METHOCARBAMOL 750 MG TABS 1 PO QID PRN METHOCARBAMOL 750 MG TABS 969365 METHOCARBAMOL Inactive VALIUM 5 MG TAB 1 po 30 minutes prior to your MRI VALIUM 5 MG TAB 576515 DIAZEPAM Inactive ANUSOL-HC 25 MG SUPPOSITORY 1 suppository rectally each evening as needed for anal fissure ANUSOL-HC 25 MG SUPPOSITORY 1041075 HYDROCORTISONE JAYDEN (RECTAL) Inactive ANUSOL-HC 25 MG SUPPOSITORY 1 rectally twice a day as needed for hemorrhoids ANUSOL-HC 25 MG SUPPOSITORY 2217705 HYDROCORTISONE JAYDEN (RECTAL) Inactive FLONASE 50 MCG/ACT SUSP 1 spray each nostril am and hs FLONASE 50 MCG/ACT SUSP FLUTICASONE PROPIONATE Inactive DICLOFENAC SODIUM 75 MG TBEC 1 tablet by q 12 hours PRN headaches DICLOFENAC SODIUM 75 MG TBEC 539631 DICLOFENAC SODIUM Inactive PA VITAMIN D-3 2000 UNIT CAPS 1 CAP PO DAILY PA VITAMIN D-3 2000 UNIT CAPS CHOLECALCIFEROL Inactive PREVACID 30 MG CPDR Take 1 tablet by mouth daily-PRN PREVACID 30 MG CPDR 562251 LANSOPRAZOLE Inactive DOXYCYCLINE HYCLATE 100 MG TAB 1 tab twice a day for 14 days 2013 DOXYCYCLINE HYCLATE 100 MG TAB 9762798 DOXYCYCLINE HYCLATE Inactive XOPENEX 1.25 MG/3ML NEBU 1 neb every 4 hours if needed for cough/congestion XOPENEX 1.25 MG/3ML NEBU 556678 LEVALBUTEROL HCL Inactive CYCLOBENZAPRINE HCL 10 MG TABS 1/2 - 1 tab by mouth three times daily if needed for spasms/pain CYCLOBENZAPRINE HCL 10 MG TABS 944770 CYCLOBENZAPRINE HCL Inactive ALBUTEROL SULFATE 0.083 % NEBU SOLN one vial per nebulizer every 4-6 hours as needed ALBUTEROL SULFATE 0.083 % NEBU SOLN 142717 ALBUTEROL SULFATE Inactive CEFTIN 500 MG TAB 1 twice a day CEFTIN 500 MG TAB 022121 CEFUROXIME AXETIL Inactive ZOFRAN ODT 4 MG TBDP 1 pill dissolved by mouth every 4 hours if needed for nausea ZOFRAN ODT 4 MG TBDP 604151 ONDANSETRON Inactive ADULT ASPIRIN EC LOW STRENGTH 81 MG TBEC Take 1 tablet by mouth daily 2014 ADULT ASPIRIN EC LOW STRENGTH 81 MG TBEC 842396 ASPIRIN Inactive CALCIUM 600+D PLUS MINERALS 600-400 [...] or an apple NIACIN 500 MG TABS 957910 NIACIN Inactive NIASPAN 500 MG ORAL CR-TABS 1 pill nightly x 1 week, then 2 pills nightly x 1 week, then 3 pills nightly x 1 week, then 4 pills nightly NIASPAN 500 MG ORAL CR-TABS NIACIN (ANTIHYPERLIPIDEMIC) Inactive OXYCODONE HCL 5 MG ORAL CAPS 1 TAB PO Q HS OXYCODONE HCL 5 MG ORAL CAPS 1880081 OXYCODONE HCL Inactive FLUTICASONE PROPIONATE 50 MCG/ACT SUSP 1 to 2 sprays each nostril daily 04/21 FLUTICASONE PROPIONATE 50 MCG/ACT SUSP 902769 FLUTICASONE PROPIONATE Inactive POLYTRIM 92126-6.1 UNIT/ML-% SOLN 1 gtt to affected eye q3h x 7 days POLYTRIM 80877-2.1 UNIT/ML-% SOLN 351424 POLYMYXIN B- TRIMETHOPRIM Inactive CHERATUSSIN AC 100-10 MG/5ML SYRP 1 tsp by mouth every 4 hours as needed for cough CHERATUSSIN AC 100-10 MG/5ML SYRP 144044 GUAIFENESIN-CODEINE Inactive LEVOTHYROXINE SODIUM 75 MCG TABS Take 1 tab daily LEVOTHYROXINE SODIUM 75 MCG TABS 482852 LEVOTHYROXINE SODIUM Inactive BACTRIM DS 800-160 MG TAB 1 tab by mouth twice daily BACTRIM DS 800-160 MG TAB 943097 TRIMETHOPRIM-SULFAMETHOXAZOLE Inactive AZITHROMYCIN 250 MG TABS 2 po qd x 1 day, then 1 po qd x 4 days AZITHROMYCIN 250 MG TABS 5678991 AZITHROMYCIN Inactive CEFDINIR 300 MG CAPS by mouth twice a day CEFDINIR 300 MG CAPS 975919 CEFDINIR Inactive AZITHROMYCIN 250 MG TABS 2 pills on day 1, then 1 pill daily x 4 days AZITHROMYCIN 250 MG TABS 3546797 AZITHROMYCIN Inactive DOXYCYCLINE HYCLATE 100 MG CAP 1 cap by mouth twice daily DOXYCYCLINE HYCLATE 100 MG CAP 0643140 DOXYCYCLINE HYCLATE Inactive FUROSEMIDE 20 MG TABS 1 pill by mouth daily, for edema FUROSEMIDE 20 MG TABS 044888 FUROSEMIDE Inactive AZITHROMYCIN 250 MG TABS 2 po qd x 1 day, then 1 po qd x 4 days AZITHROMYCIN 250 MG TABS 7925021 AZITHROMYCIN Inactive CEFTIN 500 MG TAB 1 twice a day CEFTIN 500 MG TAB 409867 CEFUROXIME AXETIL Inactive CEFDINIR 300 MG CAPS 1 po BID x 10 days CEFDINIR 300 MG CAPS 334961 CEFDINIR Inactive Immunizations Vaccine Administration Date Value Standard Description Seasonal influenza vaccine, injectable, containing preservative, for > 3 years old (Afluria, FluLaval, Fluzone, Fluvirin, Fluarix, Agriflu(>=18 yo)) Fluzone (>3 yrs.) [SBL322] Influenza, seasonal, injectable influenza immunization (Flu Vax) has been administered Influenza - Unspecified Formulation [CVX88] influenza virus vaccine, unspecified formulation Seasonal influenza vaccine, injectable, containing preservative, for > 3 years old (Afluria, FluLaval, Fluzone, Fluvirin, Fluarix, Agriflu(>=18 yo)) Fluzone (>3 yrs.) [ASY803] Influenza, seasonal, injectable pneumococcal immunization administered Pneumovax 23 [CVX33] pneumococcal polysaccharide vaccine, 23 valent dT (Diphtheria and Tetanus) booster given given Td(adult) unspecified formulation Boostrix (Tetanus toxoid, reduced diphtheria toxoid and acellular pertussis vaccine, adsorbed), booster Boostrix [UNJ146] tetanus toxoid, reduced diphtheria toxoid, and acellular [...] Panel - Chemistry sodium, serum 145 mmol/L 897-817 9162/06/22 potassium, serum 3.9 mmol/L 3.5-5.2 chloride, serum 109 mmol/L 98-107 carbon dioxide, venous blood 23.4 mmol/L 21.0-32.0 blood glucose 92 mg/dL 65-110 calcium, serum 8.2 mg/dL 8.5-10.1 urea nitrogen, blood 24 mg/dL 7-18 creatinine, serum 1.30 mg/dL 0.60-1.30 Lab Report: [facility] Advanced Lipid and Inlammation Panel /01598 - Chemistry cholesterol, serum 198 mg/dL 149-762 1980/04/30 HDL cholesterol, serum 65 mg/dL > OR=46 triglyceride, serum, fasting 82 mg/dL LDL cholesterol, serum 117 mg/dL cholesterol/HDL ratio, serum 3.0 calc < OR=5.0 cholesterol, serum 148 mg/dL 207-037 4790/09/02 HDL cholesterol, serum 55 mg/dL > OR=46 [...] (L) - Chemistry sodium, serum 145 mmol/L 924-372 7133/09/02 potassium, serum 4.6 mmol/L 3.5-5.2 chloride, serum [...] Rate - Chemistry sodium, serum 139 mmol/L 202-158 1799/03/24 carbon dioxide, venous blood 22.4 mmol/L 21.0-32.0 [...] 51 mg/dL 30-200 cholesterol, serum 173 mg/dL 347-246 3831/04/28 HDL cholesterol, serum 63 mg/dL 32-96 LDL [...] mg/dL Encounters Code Encounter Date Provider Facility CPT-69752 Level 3 Est. Patient 11:30:07 CDT Rodrigo Sarah APRN [facility] CPT-33172 Level 4 Est. Patient 21:02:30 [employer] Gab Padron MD [facility] CPT-47803 Level 3 Est. Patient 11:02:19 [employer] Gab Padron MD [facility] CPT-82243 Level 4 Est. Patient 22:24:31 [employer] Gab Padron MD [facility] CPT-87113 Level 3 Est. Patient 18:33:46 [employer] Gab Padron MD [facility] CPT-67217 Level 3 Est. Patient 16:19:11 CDT Yolande Lindsay MD PhD [facility] CPT-54336 Level 3 Est. Patient 18:59:14 CDT Yolande Lindsay MD PhD [facility] CPT-63804 Level 4 Est. Patient 21:29:26 CDT Yolande Lindsay MD PhD [facility] CPT-67033 Level 3 Est. Patient 07:37:45 CDT Yolande Lnidsay MD PhD [facility]-38794 Level 3 Est. Patient 17:03:46 CDT Yolande Lindsay MD [facility]-91756 Level 4 Est. Patient 20:02:13 [employer] Yolande Lindsay MD [facility]-00374 Level 3 Est. Patient 16:02:07 [employer] Alexis Ordaz MD [facility]-44882 Level 3 Est. Patient 12:41:24 [employer] Yolande Lindsay MD [facility]-62534 Level 3 Est. Patient 15:41:20 [employer] Yolande Lindsay MD [facility]-02565 Level 3 Est. Patient 13:20:02 [employer] Yolande Lindsay MD [facility]-08123 Level 3 Est. Patient 15:00:38 CDT Jared Og MD [facility]-75891 Level 3 Est. Patient 10:22:32 CDT Yolande Lindsay MD [facility] CPT-22560 Level 3 Est. Patient 17:12:58 CDT Yolande Lindsay MD [facility]-96647 Level 4 Est. Patient 13:30:58 CDT Yoalnde Lindsay MD [facility] CPT-37677 Level 4 New Patient 09:02:42 CDT Jared Og MD [facility]-38351 Level 3 Est. Patient 08:19:07 CDT Yolande Lindsay MD [facility]-52956 Level 3 Est. Patient 12:00:13 [employer] Gab Padron MD [facility]-95524 Level 3 Est. Patient 16:15:23 [employer] Yolande Lindsay MD [facility]-31438 Level 2 Est. Patient 19:47:15 CDT Yolande Lindsay MD [facility]-02492 Level 3 Est. Patient 21:38:31 CDT Yolande Lindsay MD [facility]-92670 Level 3 Est. Patient 10:25:12 CDT Adiel Rodríguezozzie PERAZA [facility]-69237 Level 4 Est. Patient 10:51:58 CDT Yolande Lindsay MD [facility]64380 Level 3 Est. Patient 14:04:55 [employer] Rodrigo Sarah [facility]-55947 Level 3 Est. Patient 10:46:35 [employer] Rodrigo Sarah [facility]-71030 Level 3 Est. Patient 14:24:37 [employer] Yolande Lindsay MD [facility]-74569 Level 3 Est. Patient 17:41:58 [employer] Yolande Lindsay MD [facility]-35684 Level 2 Est. Patient 22:01:41 [employer] Rodrigo Sarah [facility]-57576 Level 2 Est. Patient 22:01:11 [employer] Rodrigo Sarah [facility]-29837 Level 3 Est. Patient 10:12:29 [employer] Rodrigo Sarah [facility]-98399 Level 3 Est. Patient 11:05:44 CDT Alexis Ordaz MD [facility]-09168 Level 3 Est. Patient 14:57:20 CDT Yolande Lindsay MD [facility]47262 Level 3 Est. Patient 14:40:57 CDT Yolande Lindsay MD [facility]75612 Level 3 Est. Patient 20:55:40 CDT Yolande Lindsay MD PhD [facility] CPT-95017 Level 3 Est. Patient 12:42:38 [employer] Yolande Lindsay MD PhD [facility] CPT-20017 Level 3 Est. Patient 11:54:49 [employer] Des Hines MD [facility] CPT-00606 Level 3 Est. Patient 17:06:38 CDT Dewayne PERAZA [facility] Procedures Code Procedure Name Date Entry Date Standard Description CPT-49872 LS spine comp w obliq 13:28:00 [employer] CPT-J1040 Depo Medrol 80 mg (Methyl Prednisolone Acetate) 10:51: 28 [employer] CPT-J1100 Decadron 8mg (Dexamethasone) 10:51:28 [employer] CPT-65995 Abx/Therapy Injection 10:51:28 [employer] CPT-J1100 Decadron 8mg (Dexamethasone) 21:02:30 [employer] CPT-J1040 Depo Medrol 80 mg (Methyl Prednisolone Acetate) 21:02: 30 [employer] [id number] Event Monitor - MC Transmission 09:12:32 CDT 08/06 [id number] Event Monitor - MC review and interp 09:12:32 CDT [id number] Event Monitor - MC recording 09:12:32 CDT CPT-37815 EKG Trac and Interp 16:50:22 CDT CPT-J1030 Depo Medrol 40 mg (Methyl Prednisolone Acetate) 17:05: 54 CDT CPT-J1100 Decadron 4mg (Dexamethasone) 17:05:54 CDT CPT-37648 Abx/Therapy Injection 17:05:54 CDT CPT-J1100 Decadron 4mg (Dexamethasone) 16:55:28 CDT CPT-J1030 Depo Medrol 40 mg (Methyl Prednisolone Acetate) 16:55: 28 CDT CPT-66880 Ankle Complete - Min 3V 15:58:50 CDT CPT-96943 Knee 3V 15:58:50 CDT CPT-59682 Hip comp min 2V 15:58:50 CDT CPT-J2270 Morphine Sulfate 10 mg 14:25:44 [employer] CPT-J2550 Phenergan 12.5 mg (Promethazine) 14:25:44 [employer] CPT-14999 Abx/Therapy Injection 14:25:44 [employer] CPT-J2550 Phenergan 12.5 mg (Promethazine) 14:08:03 [employer] CPT-J2270 Morphine Sulfate 10 mg 14:08:03 [employer] CPT-98742 Bladder Scan 15:00:38 CDT CPT-TCMM Transitional Care Mgmt-Moderate 09:52:22 CDT CPT-J1030 Depo Medrol 40 mg (Methyl Prednisolone Acetate) 10:55: 18 CDT CPT-J1100 Decadron 4mg (Dexamethasone) 10:55:18 CDT CPT-74311 Abx/Therapy Injection 10:55:18 CDT CPT-J1030 Depo Medrol 40 mg (Methyl Prednisolone Acetate) 10:22: 32 CDT CPT-J1100 Decadron 4mg (Dexamethasone) 10:22:32 CDT CPT-93030 Postop F/U Visit 14:37:13 CDT CPT-63897 Ankle Complete - Min 3V 17:11:58 CDT CPT-59122 Foot comp min 3V 17:11:58 CDT CPT-22314 Bladder Scan 09:56:58 CDT CPT-44013 Postop F/U Visit 09:56:58 CDT CPT-90316 Cystoscopy 09:02:42 CDT CPT-01924 Bladder Scan 09:02:42 CDT CPT-49149 Abd single AP View 16:00:35 CDT CPT-03784 Administration single or combination vaccine inc oral 10 :15:43 CDT CPT-12134 Influenza split virus > age 3 10:15:43 CDT CPT-87998 Nail Avulsion 09:24:57 CDT CPT-OV Office Visit 11:15:41 CDT CPT-19946 Abx/Therapy Injection 10:51:30 CDT CPT-J3301 Kenalog 40 mg (Triamcinolone Acetonide) 10:25:12 CDT CPT-J1100 Decadron 4mg (Dexamethasone) 10:25:12 CDT CPT-81940 Anoscopy diagnostic 10:36:12 CDT CPT-OV Office Visit 15:34:31 CDT CPT-41512 Abx/Therapy Injection 08:21:15 [employer] CPT-J1885 Toradol 60 mg (Ketorolac) 10:46:35 [employer] CPT-OV Office Visit 19:51:16 [employer] CPT-80677 Spec Collection and Handling Fee 14:34:18 [employer]IST CPT-PV Prev. Care Visit 14:19:18 [employer] CPT-08713 Postop F/U Visit 14:47:51 [employer] CPT-98512 Postop F/U Visit 15:15:14 [employer] CPT-81085 Postop F/U Visit 14:41:43 CDT CPT-54890 Postop F/U Visit 15:47:46 CDT CPT-OV Office Visit 15:27:23 CDT CPT-OV Office Visit 17:20:34 CDT CPT-49173 Abx/Therapy Injection 15:05:57 CDT CPT-J1100 Decadron 8mg (Dexamethasone) 14:44:57 CDT CPT-J1040 Depo Medrol 80 mg (Methyl Prednisolone Acetate) 14:44: 57 CDT CPT-JTINJ Joint Injection 10:17:37 CDT CPT-95671 Administration 2+ single or combination vaccines inc oral 13:01:46 [employer] CPT-47824 Administration single or combination vaccine inc oral 13 :01:46 [employer] CPT-49160 Pneumovax 13:01:46 [employer] CPT-65613 Influenza split virus > age 3 13:01:46 [employer] CPT-66248 Administration single or combination vaccine inc oral 08 :56:49 CDT CPT-93447 Tdap 08:56:49 CDT
--- OUTSIDE RECORDS SUMMARY | 2017-03-22 02:52 | XMS REPORT | Clinical Summary ---
Author Author Admin, MARGRET Organization [employer] Address Unknown Phone Unavailable Allergies, Adverse Reactions, Alerts Allergy Name Reaction Description Start Date Severity Status Provider VALENTIN Critical Active Rodrigo Montemayorl HORTICULTURAL NURSERY ASSISTANT CHLORHEXIDINE GLUCONATE tongue and gums swollen Critical Active Hoa Clarita RMA NORFLEX Rash Critical Active Silvestrellina Frazell HORTICULTURAL NURSERY ASSISTANT TRAZODONE HCL sees things Critical Active [...] (CURRENT) USE OF OTHER MEDICATIONS V58.69 Resolved Yoladne Lindsay MD PhD Long-term (current) use of [...] site; multiple sites Bladder Prolapse 596.9 Active Jaerd Og MD Unspecified disorder of bladder STRESS [...] of 412 Active Hoa Otto [facility] Old myocardial infarction Pelvic pain 789.09 Active Yolande Lindsay MD PhD Abdominal pain, other specified site; multiple sites Edema 782.3 Active Yolande Lindsay MD PhD Edema Rash 782.1 Active Yolande Lindsay MD PhD Rash and other nonspecific skin eruption Back pain, lumbar 724.2 Active Gab Padron MD Lumbago Cough 786.2 Active Jillina Tyrel HORTICULTURAL NURSERY ASSISTANT Cough 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 Jillina Frazellilian HORTICULTURAL NURSERY ASSISTANT 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 Anemia 285.9 Active Gab Padron MD Anemia, unspecified Conjunctivitis 372.30 Active Jillina Tyrel HORTICULTURAL NURSERY ASSISTANT Conjunctivitis, unspecified Sinusitis 473.9 Active Jillina Frazell HORTICULTURAL NURSERY ASSISTANT Unspecified sinusitis (chronic) FOOT PAIN, RIGHT ICD-729.5 [...] TABS Take 1 tab daily LEVOTHYROXINE SODIUM 78033933863 No Longer Active Mariana FLEMING Active SYNTHROID 88 MCG ORAL TABS Take one by mouth daily LEVOTHYROXINE SODIUM 78633034724 Active Mariana FLEMING Active CHERATUSSIN AC 100-10 MG/5ML SYRP 1 tsp by mouth every 4 hours as needed for cough GUAIFENESIN-CODEINE 47698331092 No Longer Active Gab Padron MD Active POLYTRIM 43877-7.1 UNIT/ML-% SOLN 1 gtt to affected eye q3h x 7 days POLYMYXIN B-TRIMETHOPRIM 87576753095 No Longer Active Gab Padron MD Active FLUTICASONE PROPIONATE 50 MCG/ACT SUSP 1 to 2 sprays each nostril daily 04/21 FLUTICASONE PROPIONATE 22618841760 No Longer Active Gab Padron MD Active TRILEPTAL 600 MG TABS Take one 1 tablet in Am and 1 tablet at night OXCARBAZEPINE 90446867614 Active Gab Padron MD Active CEFDINIR 300 MG CAPS 1 po BID x 10 days CEFDINIR 84131358001 No Longer Active Rodrigo Sarah APRN Active CEFTIN 500 MG TAB 1 twice a day CEFUROXIME AXETIL 74760875848 No Longer Active Gab Padron MD Active AZITHROMYCIN 250 MG TABS 2 po qd x 1 day, then 1 po qd x 4 days AZITHROMYCIN 56306801026 No Longer Active Rodrigo Sarah APRN Active CLARITIN 10 MG TAB 1 tablet by mouth daily as needed for allergies LORATADINE 34171668532 Active Rodrigo Sarah APRN Active OXYCODONE HCL 5 MG ORAL CAPS 1 TAB PO Q HS OXYCODONE HCL 39447535394 No Longer Active Rodrigo Sarah APRN Active NIASPAN 500 MG ORAL CR-TABS 1 pill nightly x 1 week, then 2 pills nightly x 1 week, then 3 pills nightly x 1 week, then 4 pills nightly NIACIN (ANTIHYPERLIPIDEMIC) 13045148090 No Longer Active Rodrigo Sarah APRN Active NIACIN 500 MG TABS 1 pill by mouth nightly x 1 week, then 2 pills x 1 week, then 3 pills x 1 week, then 4 pills nightly - take after evening meal, with applesauce or an apple NIACIN 81262176217 No Longer Active Yolande Lindsay MD PhD Active FISH OIL 1000 MG CAPS 3 pills daily OMEGA-3 FATTY ACIDS 31467537859 Active Yolande Lindsay MD PhD Active TRIAMCINOLONE ACETONIDE 0.1 % CREA apply bid sparingly to rash TRIAMCINOLONE ACETONIDE 38796880661 Active Yolande Lindsay MD PhD Active FUROSEMIDE 20 MG TAB 1 tablet by mouth daily FUROSEMIDE 26153221251 Active Yolande Lindsay MD PhD Active LISINOPRIL 20 MG ORAL TABS 1 tab by mouth daily LISINOPRIL 12034666227 Active Gab Padrno MD Active FUROSEMIDE 20 MG TABS 1 pill by mouth daily, for edema FUROSEMIDE 67039761775 No Longer Active Yolande Lindsay MD PhD Active ATORVASTATIN CALCIUM 10 MG TABS 1 pill by mouth daily, for cholesterol 09/06 ATORVASTATIN CALCIUM 83123554830 Active Yolande Lindsay MD PhD Active CALCIUM 600+D PLUS MINERALS 600-400 MG-UNIT ORAL CHEW 1 tab by mouth daily CALCIUM CARBONATE-VIT D-MIN 29562530802 No Longer Active Yolande Lindsay MD PhD Active CYCLOBENZAPRINE HCL 10 MG TABS 1 tablet by mouth three times daily as needed for muscle spasm/pain CYCLOBENZAPRINE HCL 77494913212 Active Yolande Lindsay MD PhD Active ONDANSETRON 4 MG TBDP 1 q4h PRN nausea ONDANSETRON 96316072879 Active Yolande Lindsay MD PhD Active ADULT ASPIRIN EC LOW STRENGTH 81 MG TBEC Take 1 tablet by mouth daily 2014 ASPIRIN 38103509938 No Longer Active Yolande Lindsay MD PhD Active ZOFRAN ODT 4 MG TBDP 1 pill dissolved by mouth every 4 hours if needed for nausea ONDANSETRON 87246961167 No Longer Active Yolande Lindsay MD PhD Active CEFTIN 500 MG TAB 1 twice a day CEFUROXIME AXETIL 13932004831 No Longer Active Yolande Lindsay MD PhD Active ALBUTEROL SULFATE 0.083 % [facility] SOLN one vial per nebulizer every 4-6 hours as needed ALBUTEROL SULFATE 36525770791 No Longer Active Alexis Ordaz MD Active DOXYCYCLINE HYCLATE 100 MG CAP 1 cap by mouth twice daily DOXYCYCLINE HYCLATE 16514442180 No Longer Active Yolande Lindsay MD PhD Active CYCLOBENZAPRINE HCL 10 MG TABS 1/2 - 1 tab by mouth three times daily if needed for spasms/pain CYCLOBENZAPRINE HCL 79106301203 No Longer Active Yolande Lindsay MD PhD Active AZITHROMYCIN 250 MG TABS 2 pills on day 1, then 1 pill daily x 4 days AZITHROMYCIN 93933716226 No Longer Active Yolande Lindsay MD PhD Active XOPENEX 1.25 MG/3ML NEBU 1 neb every 4 hours if needed for cough/congestion LEVALBUTEROL HCL 07187450623 No Longer Active Yolande Lindsay MD PhD Active DOXYCYCLINE HYCLATE 100 MG TAB 1 tab twice a day for 14 days 2013 DOXYCYCLINE HYCLATE 36503899130 No Longer Active Yolande Lindsay MD PhD Active PREVACID 30 MG CPDR Take 1 tablet by mouth daily-PRN LANSOPRAZOLE 70847250802 No Longer Active Yolande Lindsay MD PhD Active PA VITAMIN D-3 2000 UNIT CAPS 1 CAP PO DAILY CHOLECALCIFEROL 60088365865 No Longer Active Yolande Lindsay MD PhD Active CEFDINIR 300 MG CAPS by mouth twice a day CEFDINIR 53895455552 No Longer Active Gab Padron MD Active TOPAMAX 50 MG TABS 1 PO twice daily TOPIRAMATE 73012413370 Active Yolande Lindsay MD PhD Active AZITHROMYCIN 250 MG TABS 2 po qd x 1 day, then 1 po qd x 4 days AZITHROMYCIN 11306187388 No Longer Active Yolande Lindsay MD PhD Active DICLOFENAC SODIUM 75 MG TBEC 1 tablet by q 12 hours PRN headaches DICLOFENAC SODIUM 62474477783 No Longer Active Yolande Lindsay MD PhD Active FLONASE 50 MCG/ACT SUSP 1 spray each nostril am and hs FLUTICASONE PROPIONATE 19950019726 No Longer Active Todd Callaway MD Active ANUSOL-HC 25 MG SUPPOSITORY 1 rectally twice a day as needed for hemorrhoids HYDROCORTISONE JAYDEN (RECTAL) 09629168142 No Longer Active Yolande Lindsay MD PhD Active ANUSOL-HC 25 MG SUPPOSITORY 1 suppository rectally each evening as needed for anal fissure HYDROCORTISONE JAYDEN (RECTAL) 14080927940 No Longer Active Bozena JaredEDELMIRAFeliciano Active VALIUM 5 MG TAB 1 po 30 minutes prior to your MRI DIAZEPAM 36787270525 No Longer Active LONNIE Iglesias Active METHOCARBAMOL 750 MG TABS 1 PO QID PRN METHOCARBAMOL 90252392798 No Longer Active Daphne Wetzel HORTICULTURAL NURSERY ASSISTANT Active NITROSTAT 0.4 MG SUBL as directed NITROGLYCERIN 72890824768 No Longer Active Rodrigo Saarh HORTICULTURAL NURSERY ASSISTANT Active ROBAXIN-750 750 MG TABS 2 four times a day for 3 days as needed for muscle spasm, then 1 four times a day as needed METHOCARBAMOL 67395787013 No Longer Active Rodrigo Sarah APRN Active HYDROCODONE-ACETAMINOPHEN 5-325 MG TABS 1 q 4-6 hrs prn HYDROCODONE-ACETAMINOPHEN 12321401524 No Longer Active Silvestrellnacho Sarah APRN Active VERAPAMIL HCL CR 180 MG CR-TABS TAKE 1 TAB DAILY VERAPAMIL HCL 43716917492 No Longer Active Yolande Lindsay MD PhD Active BACTRIM DS 800-160 MG TAB 1 tab by mouth twice daily TRIMETHOPRIM-SULFAMETHOXAZOLE 97572602368 No Longer Active Yolande Lindsay MD PhD Active NEXIUM 40 MG PACK 1 by mouth daily ESOMEPRAZOLE MAGNESIUM 71645707995 No Longer Active Des Hines MD Active EPIPEN 2-CHARLETTE 0.3 MG/0.3ML OMARI as need for allergic reaction EPINEPHRINE 84190142683 Active Yolande Lindsay MD PhD Active NEXIUM 40 MG CPDR 1 PO Q D DAY ESOMEPRAZOLE MAGNESIUM 80617927938 No Longer Active Sadia Perry RN Active NEXIUM 40 MG PACK 1 by mouth daily NEXIUM 40 MG PACK ESOMEPRAZOLE MAGNESIUM Inactive VERAPAMIL HCL CR 180 MG CR-TABS TAKE 1 TAB DAILY VERAPAMIL HCL CR 180 MG CR-TABS VERAPAMIL HCL Inactive HYDROCODONE-ACETAMINOPHEN 5-325 MG TABS 1 q 4-6 hrs prn HYDROCODONE-ACETAMINOPHEN 5-325 MG TABS 962510 HYDROCODONE-ACETAMINOPHEN Inactive ROBAXIN-750 750 MG TABS 2 four times a day for 3 days as needed for muscle spasm, then 1 four times a day as needed ROBAXIN-750 750 MG TABS 004921 METHOCARBAMOL Inactive NITROSTAT 0.4 MG SUBL as directed NITROSTAT 0.4 MG SUBL NITROGLYCERIN Inactive METHOCARBAMOL 750 MG TABS 1 PO QID PRN METHOCARBAMOL 750 MG TABS 770155 METHOCARBAMOL Inactive VALIUM 5 MG TAB 1 po 30 minutes prior to your MRI VALIUM 5 MG TAB 701520 DIAZEPAM Inactive ANUSOL-HC 25 MG SUPPOSITORY 1 suppository rectally each evening as needed for anal fissure ANUSOL-HC 25 MG SUPPOSITORY 8262905 HYDROCORTISONE JAYDEN (RECTAL) Inactive ANUSOL-HC 25 MG SUPPOSITORY 1 rectally twice a day as needed for hemorrhoids ANUSOL-HC 25 MG SUPPOSITORY 3639747 HYDROCORTISONE JAYDEN (RECTAL) Inactive FLONASE 50 MCG/ACT SUSP 1 spray each nostril am and hs FLONASE 50 MCG/ACT SUSP FLUTICASONE PROPIONATE Inactive DICLOFENAC SODIUM 75 MG TBEC 1 tablet by q 12 hours PRN headaches DICLOFENAC SODIUM 75 MG TBEC 097719 DICLOFENAC SODIUM Inactive PA VITAMIN D-3 2000 UNIT CAPS 1 CAP PO DAILY PA VITAMIN D-3 2000 UNIT CAPS CHOLECALCIFEROL Inactive PREVACID 30 MG CPDR Take 1 tablet by mouth daily-PRN PREVACID 30 MG CPDR 820107 LANSOPRAZOLE Inactive DOXYCYCLINE HYCLATE 100 MG TAB 1 tab twice a day for 14 days 2013 DOXYCYCLINE HYCLATE 100 MG TAB 3534023 DOXYCYCLINE HYCLATE Inactive XOPENEX 1.25 MG/3ML NEBU 1 neb every 4 hours if needed for cough/congestion XOPENEX 1.25 MG/3ML NEBU 307858 LEVALBUTEROL HCL Inactive CYCLOBENZAPRINE HCL 10 MG TABS 1/2 - 1 tab by mouth three times daily if needed for spasms/pain CYCLOBENZAPRINE HCL 10 MG TABS 306032 CYCLOBENZAPRINE HCL Inactive ALBUTEROL SULFATE 0.083 % NEBU SOLN one vial per nebulizer every 4-6 hours as needed ALBUTEROL SULFATE 0.083 % NEBU SOLN 790922 ALBUTEROL SULFATE Inactive CEFTIN 500 MG TAB 1 twice a day CEFTIN 500 MG TAB 956117 CEFUROXIME AXETIL Inactive ZOFRAN ODT 4 MG TBDP 1 pill dissolved by mouth every 4 hours if needed for nausea ZOFRAN ODT 4 MG TBDP 779843 ONDANSETRON Inactive ADULT ASPIRIN EC LOW STRENGTH 81 MG TBEC Take 1 tablet by mouth daily 2014 ADULT ASPIRIN EC LOW STRENGTH 81 MG TBEC 427952 ASPIRIN Inactive CALCIUM 600+D PLUS MINERALS 600-400 [...] or an apple NIACIN 500 MG TABS 029357 NIACIN Inactive NIASPAN 500 MG ORAL CR-TABS 1 pill nightly x 1 week, then 2 pills nightly x 1 week, then 3 pills nightly x 1 week, then 4 pills nightly NIASPAN 500 MG ORAL CR-TABS NIACIN (ANTIHYPERLIPIDEMIC) Inactive OXYCODONE HCL 5 MG ORAL CAPS 1 TAB PO Q HS OXYCODONE HCL 5 MG ORAL CAPS 5190198 OXYCODONE HCL Inactive FLUTICASONE PROPIONATE 50 MCG/ACT SUSP 1 to 2 sprays each nostril daily 04/21 FLUTICASONE PROPIONATE 50 MCG/ACT SUSP 037001 FLUTICASONE PROPIONATE Inactive POLYTRIM 16322-3.1 UNIT/ML-% SOLN 1 gtt to affected eye q3h x 7 days POLYTRIM 23657-3.1 UNIT/ML-% SOLN 726790 POLYMYXIN B- TRIMETHOPRIM Inactive CHERATUSSIN AC 100-10 MG/5ML SYRP 1 tsp by mouth every 4 hours as needed for cough CHERATUSSIN AC 100-10 MG/5ML SYRP 935619 GUAIFENESIN-CODEINE Inactive LEVOTHYROXINE SODIUM 75 MCG TABS Take 1 tab daily LEVOTHYROXINE SODIUM 75 MCG TABS 191403 LEVOTHYROXINE SODIUM Inactive BACTRIM DS 800-160 MG TAB 1 tab by mouth twice daily BACTRIM DS 800-160 MG TAB 056866 TRIMETHOPRIM-SULFAMETHOXAZOLE Inactive AZITHROMYCIN 250 MG TABS 2 po qd x 1 day, then 1 po qd x 4 days AZITHROMYCIN 250 MG TABS 3288048 AZITHROMYCIN Inactive CEFDINIR 300 MG CAPS by mouth twice a day CEFDINIR 300 MG CAPS 595774 CEFDINIR Inactive AZITHROMYCIN 250 MG TABS 2 pills on day 1, then 1 pill daily x 4 days AZITHROMYCIN 250 MG TABS 4893409 AZITHROMYCIN Inactive DOXYCYCLINE HYCLATE 100 MG CAP 1 cap by mouth twice daily DOXYCYCLINE HYCLATE 100 MG CAP 3818062 DOXYCYCLINE HYCLATE Inactive FUROSEMIDE 20 MG TABS 1 pill by mouth daily, for edema FUROSEMIDE 20 MG TABS 131930 FUROSEMIDE Inactive AZITHROMYCIN 250 MG TABS 2 po qd x 1 day, then 1 po qd x 4 days AZITHROMYCIN 250 MG TABS 8452958 AZITHROMYCIN Inactive CEFTIN 500 MG TAB 1 twice a day CEFTIN 500 MG TAB 816545 CEFUROXIME AXETIL Inactive CEFDINIR 300 MG CAPS 1 po BID x 10 days CEFDINIR 300 MG CAPS 495926 CEFDINIR Inactive Immunizations Vaccine Administration Date Value Standard Description Seasonal influenza vaccine, injectable, containing preservative, for > 3 years old (Afluria, FluLaval, Fluzone, Fluvirin, Fluarix, Agriflu(>=18 yo)) Fluzone (>3 yrs.) [KEG138] Influenza, seasonal, injectable influenza immunization (Flu Vax) has been administered Influenza - Unspecified Formulation [CVX88] influenza virus vaccine, unspecified formulation Seasonal influenza vaccine, injectable, containing preservative, for > 3 years old (Afluria, FluLaval, Fluzone, Fluvirin, Fluarix, Agriflu(>=18 yo)) Fluzone (>3 yrs.) [ANL150] Influenza, seasonal, injectable pneumococcal immunization administered Pneumovax 23 [CVX33] pneumococcal polysaccharide vaccine, 23 valent dT (Diphtheria and Tetanus) booster given given Td(adult) unspecified formulation Boostrix (Tetanus toxoid, reduced diphtheria toxoid and acellular pertussis vaccine, adsorbed), booster Boostrix [NLF877] tetanus toxoid, reduced diphtheria toxoid, and acellular [...] Panel - Chemistry sodium, serum 145 mmol/L 952-000 9986/06/22 potassium, serum 3.9 mmol/L 3.5-5.2 chloride, serum 109 mmol/L 98-107 carbon dioxide, venous blood 23.4 mmol/L 21.0-32.0 blood glucose 92 mg/dL 65-110 calcium, serum 8.2 mg/dL 8.5-10.1 urea nitrogen, blood 24 mg/dL 7-18 creatinine, serum 1.30 mg/dL 0.60-1.30 Lab Report: [facility] Advanced Lipid and Inlammation Panel /47343 - Chemistry cholesterol, serum 198 mg/dL 415-218 4386/04/30 HDL cholesterol, serum 65 mg/dL > OR=46 triglyceride, serum, fasting 82 mg/dL LDL cholesterol, serum 117 mg/dL cholesterol/HDL ratio, serum 3.0 calc < OR=5.0 cholesterol, serum 148 mg/dL 270-238 3137/09/02 HDL cholesterol, serum 55 mg/dL > OR=46 [...] (L) - Chemistry sodium, serum 145 mmol/L 133-969 4679/09/02 potassium, serum 4.6 mmol/L 3.5-5.2 chloride, serum [...] 51 mg/dL 30-200 cholesterol, serum 173 mg/dL 315-393 2935/04/28 HDL cholesterol, serum 63 mg/dL 32-96 LDL [...] mg/dL Encounters Code Encounter Date Provider Facility CPT-55218 Level 4 Est. Patient 21:02:30 TOOL MACHINE SHOP SUPERVISOR Gab Padron MD [facility]-18677 Level 3 Est. Patient 11:02:19 TOOL MACHINE SHOP SUPERVISOR Gab Padron MD [facility]-19455 Level 4 Est. Patient 22:24:31 TOOL MACHINE SHOP SUPERVISOR Gab Padron MD [facility]-78877 Level 3 Est. Patient 18:33:46 TOOL MACHINE SHOP SUPERVISOR Gab Padron MD [facility]-03847 Level 3 Est. Patient 16:19:11 CDT Yolande Lindsay MD [facility] [place]19 Level 3 Est. Patient 18:59:14 CDT Yolande Lindsay MD [facility] [place]-[address]641 Level 4 Est. Patient 21:29:26 CDT Yolande Lindsay MD [facility]-74365 Level 3 Est. Patient 07:37:45 CDT Yolande Lindsay MD [facility]-36396 Level 3 Est. Patient 17:03:46 CDT Yolande Lindsay MD [facility]-23690 Level 4 Est. Patient 20:02:13 TOOL MACHINE SHOP SUPERVISOR Yolande Lindsay MD [facility] [place]-58061 Level 3 Est. Patient 16:02:07 TOOL MACHINE SHOP SUPERVISOR Alexis Ordaz MD [facility]-78780 Level 3 Est. Patient 12:41:24 TOOL MACHINE SHOP SUPERVISOR Yolande Lindsay MD [facility] [place]-14779 Level 3 Est. Patient 15:41:20 TOOL MACHINE SHOP SUPERVISOR Yolande Lindsay MD [facility] [place]-35361 Level 3 Est. Patient 13:20:02 TOOL MACHINE SHOP SUPERVISOR Yolande Lindsay MD [facility] [place]-61919 Level 3 Est. Patient 15:00:38 CDT Jared Og MD [facility]-76786 Level 3 Est. Patient 10:22:32 CDT Yolande Lindsay MD [facility] CPT-10144 Level 3 Est. Patient 17:12:58 CDT Yolande Lindsay MD [facility] [place]-87875 Level 4 Est. Patient 13:30:58 CDT Yolande Lindsay MD [facility] [place]-35498 Level 4 New Patient 09:02:42 CDT Jared Og MD [facility]-71703 Level 3 Est. Patient 08:19:07 CDT Yolande Lindsay MD [facility] [place]-47170 Level 3 Est. Patient 12:00:13 TOOL MACHINE SHOP SUPERVISOR Gab Padron MD [facility]-15696 Level 3 Est. Patient 16:15:23 TOOL MACHINE SHOP SUPERVISOR Yolande Lindsay MD [facility] [place]-49569 Level 2 Est. Patient 19:47:15 CDT Yolande Lindsay MD [facility] [place]-29693 Level 3 Est. Patient 21:38:31 CDT Yolande Lindsay MD [facility] [place]-73267 Level 3 Est. Patient 10:25:12 CDT Adiel PERAZA [facility] CPT-67526 Level 4 Est. Patient 10:51:58 CDT Yolande Lindsay MD [facility] [place]-57062 Level 3 Est. Patient 14:04:55 TOOL MACHINE SHOP SUPERVISOR Rodrigo Sarah [facility]-27731 Level 3 Est. Patient 10:46:35 TOOL MACHINE SHOP SUPERVISOR Rodrigo Sarah [facility]-11539 Level 3 Est. Patient 14:24:37 TOOL MACHINE SHOP SUPERVISOR Yolande Lindsay MD [facility] [place]-31556 Level 3 Est. Patient 17:41:58 TOOL MACHINE SHOP SUPERVISOR Yolande Lindsay MD PhD [facility] CPT-44910 Level 2 Est. Patient 22:01:41 TOOL MACHINE SHOP SUPERVISOR Rodrigo Sarah [facility] CPT-09963 Level 2 Est. Patient 22:01:11 TOOL MACHINE SHOP SUPERVISOR Rodrigo Sarah [facility] CPT-17887 Level 3 Est. Patient 10:12:29 TOOL MACHINE SHOP SUPERVISOR Rodrigo Sarah [facility] CPT-91020 Level 3 Est. Patient 11:05:44 CDT Alexis Ordaz MD [facility]-78578 Level 3 Est. Patient 14:57:20 CDT Yolande Lindsay MD [facility] [place]-17244 Level 3 Est. Patient 14:40:57 CDT Yolande Lindsay MD [facility] [place]-99628 Level 3 Est. Patient 20:55:40 CDT Yolande Lindsay MD [facility] [place]-11929 Level 3 Est. Patient 12:42:38 TOOL MACHINE SHOP SUPERVISOR Yolande Lindsay MD [facility]-68000 Level 3 Est. Patient 11:54:49 TOOL MACHINE SHOP SUPERVISOR Des Hines MD [facility]-71134 Level 3 Est. Patient 17:06:38 CDT Dewayne PERAZA [facility] Procedures Code Procedure Name Date Entry Date Standard Description CPT-04927 LS spine comp w obliq 13:28:00 TOOL MACHINE [employer]OP SUPERVISOR CPT-J1040 Depo Medrol 80 mg (Methyl Prednisolone Acetate) 10:51: 28 TOOL MACHINE [employer]OP SUPERVISOR CPT-J1100 Decadron 8mg (Dexamethasone) 10:51:28 TOOL MACHINE [employer]OP SUPERVISOR CPT-82294 Abx/Therapy Injection 10:51:28 TOOL MACHINE SHOP SUPERVISOR CPT-J1100 Decadron 8mg (Dexamethasone) 21:02:30 TOOL MACHINE SHOP SUPERVISOR CPT-J1040 Depo Medrol 80 mg (Methyl Prednisolone Acetate) 21:02: 30 TOOL MACHINE [employer]OP SUPERVISOR [id number] Event Monitor - MC Transmission 09:12:32 CDT 08/06 [id number] Event Monitor - MC review and interp 09:12:32 CDT [id number] Event Monitor - MC recording 09:12:32 CDT CPT-97347 EKG Trac and Interp 16:50:22 CDT CPT-J1030 Depo Medrol 40 mg (Methyl Prednisolone Acetate) 17:05: 54 CDT CPT-J1100 Decadron 4mg (Dexamethasone) 17:05:54 CDT CPT-00908 Abx/Therapy Injection 17:05:54 CDT CPT-J1100 Decadron 4mg (Dexamethasone) 16:55:28 CDT CPT-J1030 Depo Medrol 40 mg (Methyl Prednisolone Acetate) 16:55: 28 CDT CPT-21111 Ankle Complete - Min 3V 15:58:50 CDT CPT-38218 Knee 3V 15:58:50 CDT CPT-42845 Hip comp min 2V 15:58:50 CDT CPT-J2270 Morphine Sulfate 10 mg 14:25:44 TOOL MACHINE [employer]OP SUPERVISOR CPT-J2550 Phenergan 12.5 mg (Promethazine) 14:25:44 TOOL MACHINE SHOP SUPERVISOR CPT-55458 Abx/Therapy Injection 14:25:44 TOOL MACHINE SHOP SUPERVISOR CPT-J2550 Phenergan 12.5 mg (Promethazine) 14:08:03 TOOL MACHINE SHOP SUPERVISOR CPT-J2270 Morphine Sulfate 10 mg 14:08:03 TOOL MACHINE SHOP SUPERVISOR CPT-95775 Bladder Scan 15:00:38 CDT CPT-TCMM Transitional Care Mgmt-Moderate 09:52:22 CDT CPT-J1030 Depo Medrol 40 mg (Methyl Prednisolone Acetate) 10:55: 18 CDT CPT-J1100 Decadron 4mg (Dexamethasone) 10:55:18 CDT CPT-48159 Abx/Therapy Injection 10:55:18 CDT CPT-J1030 Depo Medrol 40 mg (Methyl Prednisolone Acetate) 10:22: 32 CDT CPT-J1100 Decadron 4mg (Dexamethasone) 10:22:32 CDT CPT-00614 Postop F/U Visit 14:37:13 CDT CPT-75106 Ankle Complete - Min 3V 17:11:58 CDT CPT-91495 Foot comp min 3V 17:11:58 CDT CPT-77210 Bladder Scan 09:56:58 CDT CPT-26408 Postop F/U Visit 09:56:58 CDT CPT-40163 Cystoscopy 09:02:42 CDT CPT-90613 Bladder Scan 09:02:42 CDT CPT-78744 Abd single AP View 16:00:35 CDT CPT-21112 Administration single or combination vaccine inc oral 10 :15:43 CDT CPT-56631 Influenza split virus > age 3 10:15:43 CDT CPT-43843 Nail Avulsion 09:24:57 CDT CPT-OV Office Visit 11:15:41 CDT CPT-72333 Abx/Therapy Injection 10:51:30 CDT CPT-J3301 Kenalog 40 mg (Triamcinolone Acetonide) 10:25:12 CDT CPT-J1100 Decadron 4mg (Dexamethasone) 10:25:12 CDT CPT-95998 Anoscopy diagnostic 10:36:12 CDT CPT-OV Office Visit 15:34:31 CDT CPT-81597 Abx/Therapy Injection 08:21:15 TOOL MACHINE SHOP SUPERVISOR CPT-J1885 Toradol 60 mg (Ketorolac) 10:46:35 TOOL MACHINE SHOP SUPERVISOR CPT-OV Office Visit 19:51:16 TOOL MACHINE SHOP SUPERVISOR CPT-58505 Spec Collection and Handling Fee 14:34:18 TOOL MACHINE SHOP SUPERVISOR CPT-PV Prev. Care Visit 14:19:18 TOOL MACHINE SHOP SUPERVISOR CPT-44336 Postop F/U Visit 14:47:51 TOOL MACHINE SHOP SUPERVISOR CPT-76394 Postop F/U Visit 15:15:14 TOOL MACHINE SHOP SUPERVISOR CPT-78834 Postop F/U Visit 14:41:43 CDT CPT-59766 Postop F/U Visit 15:47:46 CDT CPT-OV Office Visit 15:27:23 CDT CPT-OV Office Visit 17:20:34 CDT CPT-28444 Abx/Therapy Injection 15:05:57 CDT CPT-J1100 Decadron 8mg (Dexamethasone) 14:44:57 CDT CPT-J1040 Depo Medrol 80 mg (Methyl Prednisolone Acetate) 14:44: 57 CDT CPT-JTINJ Joint Injection 10:17:37 CDT CPT-78245 Administration 2+ single or combination vaccines inc oral 13:01:46 TOOL MACHINE [employer]OP SUPERVISOR CPT-04585 Administration single or combination vaccine inc oral 13 :01:46 TOOL MACHINE SHOP SUPERVISOR CPT-29197 Pneumovax 13:01:46 TOOL MACHINE SHOP SUPERVISOR CPT-99309 Influenza split virus > age 3 13:01:46 TOOL MACHINE SHOP SUPERVISOR CPT-08442 Administration single or combination vaccine inc oral 08 :56:49 CDT CPT-63791 Tdap 08:56:49 CDT
--- OUTSIDE RECORDS SUMMARY | 2017-03-22 02:55 | XMS REPORT | Clinical Summary ---
Author Author Admin, MARGRET Organization [employer] Address Unknown Phone Unavailable Allergies, Adverse Reactions, Alerts Allergy Name Reaction Description Start Date Severity Status Provider VALENTIN Critical Active Rodrigo Montemayorl CULTURE ROOM WORKER CHLORHEXIDINE GLUCONATE tongue and gums swollen Critical Active Hoa Kabaford RMA NORFLEX Rash Critical Active Silvestrellina Frazell CULTURE ROOM WORKER TRAZODONE HCL sees things Critical Active [...] FOLLOW SURGERY MUSCULOSKEL SYSTEM NEC V58.78 Resolved oTdd Callaway MD Aftercare following surgery of the [...] thigh Sinusitis, maxillary, acute 461.0 Resolved Yolande Lnidsay MD PhD Acute maxillary sinusitis Sinusitis 461.9 [...] hx of 412 Active Hoa Otto [facility] Old myocardial infarction Pelvic pain 789.09 Active Yolande Lindsay MD PhD Abdominal pain, other specified site; multiple sites Edema 782.3 Active Yolande Lindsay MD PhD Edema Rash 782.1 Active Yolande Lindsay MD PhD Rash and other nonspecific skin eruption Back pain, lumbar 724.2 Active Gab Padron MD Lumbago Cough 786.2 Active Jillina Tyrel C[employer]URE ROOM WORKER Cough 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 Jillina Frazellilian CULTURE ROOM WORKER 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 Anemia 285.9 Active Gab Padron MD Anemia, unspecified Conjunctivitis 372.30 Active Jillina Tyrel CULTURE ROOM WORKER Conjunctivitis, unspecified Sinusitis 473.9 Active Jillina Frazell CULTURE ROOM WORKER Unspecified sinusitis (chronic) FOOT PAIN, RIGHT ICD-729.5 [...] 1 po BID x 10 days CEFDINIR 97528709620 No Longer Active Jillina Frazell CULTURE ROOM WORKER Active FLUTICASONE PROPIONATE 50 MCG/ACT SUSP 1 to 2 sprays each nostril daily 04/21 FLUTICASONE PROPIONATE 89801513940 Active Jillina Frazell CULTURE ROOM WORKER Active POLYTRIM 85015-1.1 UNIT/ML-% SOLN 1 gtt to affected eye q3h x 7 days POLYMYXIN B-TRIMETHOPRIM 70189002762 Active Jillina Frazell CULTURE ROOM WORKER Active CHERATUSSIN AC 100-10 MG/5ML SYRP 1 tsp by mouth every 4 hours as needed for cough GUAIFENESIN-CODEINE 35157520966 Active Gab Padron MD Active CEFTIN 500 MG TAB 1 twice a day CEFUROXIME AXETIL 77137366783 No Longer Active Gab Padron MD Active AZITHROMYCIN 250 MG TABS 2 po qd x 1 day, then 1 po qd x 4 days AZITHROMYCIN 59059024251 No Longer Active Rodrigo Sarah APRN Active CLARITIN 10 MG TAB 1 tablet by mouth daily as needed for allergies LORATADINE 25880398776 Active Rodrigo Sarah APRN Active OXYCODONE HCL 5 MG ORAL CAPS 1 TAB PO Q HS OXYCODONE HCL 22623612514 No Longer Active Rodrigo Sarah APRN Active NIASPAN 500 MG ORAL CR-TABS 1 pill nightly x 1 week, then 2 pills nightly x 1 week, then 3 pills nightly x 1 week, then 4 pills nightly NIACIN (ANTIHYPERLIPIDEMIC) 25197708954 No Longer Active Rodrigo Sarah APRN Active NIACIN 500 MG TABS 1 pill by mouth nightly x 1 week, then 2 pills x 1 week, then 3 pills x 1 week, then 4 pills nightly - take after evening meal, with applesauce or an apple NIACIN 06905226210 No Longer Active Yolande Lindsay MD PhD Active FISH OIL 1000 MG CAPS 3 pills daily OMEGA-3 FATTY ACIDS 91868081037 Active Yolande Lindsay MD PhD Active TRIAMCINOLONE ACETONIDE 0.1 % CREA apply bid sparingly to rash TRIAMCINOLONE ACETONIDE 95654181662 Active Yolande Lindsay MD PhD Active FUROSEMIDE 20 MG TAB 1 tablet by mouth daily FUROSEMIDE 90375012198 Active Yolande Lindsay MD PhD Active LISINOPRIL 20 MG ORAL TABS 1 tab by mouth daily LISINOPRIL 24932912678 Active Gab Padron MD Active FUROSEMIDE 20 MG TABS 1 pill by mouth daily, for edema FUROSEMIDE 37245704187 No Longer Active Yolande Lindsay MD PhD Active ATORVASTATIN CALCIUM 10 MG TABS 1 pill by mouth daily, for cholesterol 09/06 ATORVASTATIN CALCIUM 80725561821 Active Yolande Lindsay MD PhD Active CALCIUM 600+D PLUS MINERALS 600-400 MG-UNIT ORAL CHEW 1 tab by mouth daily CALCIUM CARBONATE-VIT D-MIN 84640329396 No Longer Active Yolande Lindsay MD PhD Active CYCLOBENZAPRINE HCL 10 MG TABS 1 tablet by mouth three times daily as needed for muscle spasm/pain CYCLOBENZAPRINE HCL 45550628480 Active Yolande Lindsay MD PhD Active ONDANSETRON 4 MG TBDP 1 q4h PRN nausea ONDANSETRON 52682466191 Active Yolande Lindsay MD PhD Active ADULT ASPIRIN EC LOW STRENGTH 81 MG TBEC Take 1 tablet by mouth daily 2014 ASPIRIN 09617892687 No Longer Active Yolande Lindsay MD PhD Active ZOFRAN ODT 4 MG TBDP 1 pill dissolved by mouth every 4 hours if needed for nausea ONDANSETRON 37499209310 No Longer Active Yolande Lindsay MD PhD Active CEFTIN 500 MG TAB 1 twice a day CEFUROXIME AXETIL 19508396305 No Longer Active Yolande Lindsay MD PhD Active ALBUTEROL SULFATE 0.083 % NEBU SOLN one vial per nebulizer every 4-6 hours as needed ALBUTEROL SULFATE 65409810911 No Longer Active Alexis Ordaz MD Active DOXYCYCLINE HYCLATE 100 MG CAP 1 cap by mouth twice daily DOXYCYCLINE HYCLATE 11886682355 No Longer Active Yolande Lindsay MD PhD Active CYCLOBENZAPRINE HCL 10 MG TABS 1/2 - 1 tab by mouth three times daily if needed for spasms/pain CYCLOBENZAPRINE HCL 20320202473 No Longer Active Yolande Lindsay MD PhD Active TRILEPTAL 600 MG TABS Take one 1/2 tablet in Am and 1 tablet at night OXCARBAZEPINE 83046530381 Active Yolande Lindsay MD PhD Active AZITHROMYCIN 250 MG TABS 2 pills on day 1, then 1 pill daily x 4 days AZITHROMYCIN 58765914980 No Longer Active Yolande Lindsay MD PhD Active XOPENEX 1.25 MG/3ML NEBU 1 neb every 4 hours if needed for cough/congestion LEVALBUTEROL HCL 51207350079 No Longer Active Yolande Lindsay MD PhD Active DOXYCYCLINE HYCLATE 100 MG TAB 1 tab twice a day for 14 days 2013 DOXYCYCLINE HYCLATE 61589831924 No Longer Active Yolande Lindsay MD PhD Active LEVOTHYROXINE SODIUM 75 MCG TABS Take 1 tab daily LEVOTHYROXINE SODIUM 20837590369 Active Gab Padron MD Active PREVACID 30 MG CPDR Take 1 tablet by mouth daily-PRN LANSOPRAZOLE 39454215259 No Longer Active Yolande Lindsay MD PhD Active PA VITAMIN D-3 2000 UNIT CAPS 1 CAP PO DAILY CHOLECALCIFEROL 98116139267 No Longer Active Yolande Lindsay MD PhD Active CEFDINIR 300 MG CAPS by mouth twice a day CEFDINIR 93526615992 No Longer Active Gab Padron MD Active TOPAMAX 50 MG TABS 1 PO twice daily TOPIRAMATE 16273250276 Active Yolande Lindsay MD PhD Active AZITHROMYCIN 250 MG TABS 2 po qd x 1 day, then 1 po qd x 4 days AZITHROMYCIN 47182397475 No Longer Active Yolande Lindsay MD PhD Active DICLOFENAC SODIUM 75 MG TBEC 1 tablet by q 12 hours PRN headaches DICLOFENAC SODIUM 88895107569 No Longer Active Yolande Lindsay MD PhD Active FLONASE 50 MCG/ACT SUSP 1 spray each nostril am and hs FLUTICASONE PROPIONATE 07551104147 No Longer Active Todd Callaway MD Active ANUSOL-HC 25 MG SUPPOSITORY 1 rectally twice a day as needed for hemorrhoids HYDROCORTISONE JAYDEN (RECTAL) 00439981531 No Longer Active Yolande Lindsay MD PhD Active ANUSOL-HC 25 MG SUPPOSITORY 1 suppository rectally each evening as needed for anal fissure HYDROCORTISONE JAYDEN (RECTAL) 29441759833 No Longer Active LONNIE Iglesias Active VALIUM 5 MG TAB 1 po 30 minutes prior to your MRI DIAZEPAM 44409749617 No Longer Active LONNIE Iglesias Active METHOCARBAMOL 750 MG TABS 1 PO QID PRN METHOCARBAMOL 17869376689 No Longer Active Daphne Wetzel APRN Active NITROSTAT 0.4 MG SUBL as directed NITROGLYCERIN 83495964909 No Longer Active Rodrigo Sarah C[employer]URE ROOM WORKER Active ROBAXIN-750 750 MG TABS 2 four times a day for 3 days as needed for muscle spasm, then 1 four times a day as needed METHOCARBAMOL 67038473588 No Longer Active Silvestrellina Tyrel CULTURE ROOM WORKER Active HYDROCODONE-ACETAMINOPHEN 5-325 MG TABS 1 q 4-6 hrs prn HYDROCODONE-ACETAMINOPHEN 48608993686 No Longer Active Silvestrellina Tyrel ZAPATAN Active VERAPAMIL HCL CR 180 MG CR-TABS TAKE 1 TAB DAILY VERAPAMIL HCL 39482841075 No Longer Active Yolande Lindsay MD PhD Active BACTRIM DS 800-160 MG TAB 1 tab by mouth twice daily TRIMETHOPRIM-SULFAMETHOXAZOLE 63976480687 No Longer Active Yolande Lindsay MD PhD Active NEXIUM 40 MG PACK 1 by mouth daily ESOMEPRAZOLE MAGNESIUM 31098114053 No Longer Active Des Hines MD Active EPIPEN 2-CHARLETTE 0.3 MG/0.3ML OMARI as need for allergic reaction EPINEPHRINE 07951423426 Active Yolande Lindsay MD PhD Active NEXIUM 40 MG CPDR 1 PO Q D DAY ESOMEPRAZOLE MAGNESIUM 78804613832 No Longer Active Sadia Perry RN Active NEXIUM 40 MG PACK 1 by mouth daily NEXIUM 40 MG PACK ESOMEPRAZOLE MAGNESIUM Inactive VERAPAMIL HCL CR 180 MG CR-TABS TAKE 1 TAB DAILY VERAPAMIL HCL CR 180 MG CR-TABS VERAPAMIL HCL Inactive HYDROCODONE-ACETAMINOPHEN 5-325 MG TABS 1 q 4-6 hrs prn HYDROCODONE-ACETAMINOPHEN 5-325 MG TABS 494762 HYDROCODONE-ACETAMINOPHEN Inactive ROBAXIN-750 750 MG TABS 2 four times a day for 3 days as needed for muscle spasm, then 1 four times a day as needed ROBAXIN-750 750 MG TABS 312735 METHOCARBAMOL Inactive NITROSTAT 0.4 MG SUBL as directed NITROSTAT 0.4 MG SUBL NITROGLYCERIN Inactive METHOCARBAMOL 750 MG TABS 1 PO QID PRN METHOCARBAMOL 750 MG TABS 472766 METHOCARBAMOL Inactive VALIUM 5 MG TAB 1 po 30 minutes prior to your MRI VALIUM 5 MG TAB 382033 DIAZEPAM Inactive ANUSOL-HC 25 MG SUPPOSITORY 1 suppository rectally each evening as needed for anal fissure ANUSOL-HC 25 MG SUPPOSITORY 5563923 HYDROCORTISONE JAYDEN (RECTAL) Inactive ANUSOL-HC 25 MG SUPPOSITORY 1 rectally twice a day as needed for hemorrhoids ANUSOL-HC 25 MG SUPPOSITORY 3382729 HYDROCORTISONE JAYDEN (RECTAL) Inactive FLONASE 50 MCG/ACT SUSP 1 spray each nostril am and hs FLONASE 50 MCG/ACT SUSP FLUTICASONE PROPIONATE Inactive DICLOFENAC SODIUM 75 MG TBEC 1 tablet by q 12 hours PRN headaches DICLOFENAC SODIUM 75 MG TBEC 498860 DICLOFENAC SODIUM Inactive PA VITAMIN D-3 2000 UNIT CAPS 1 CAP PO DAILY PA VITAMIN D-3 2000 UNIT CAPS CHOLECALCIFEROL Inactive PREVACID 30 MG CPDR Take 1 tablet by mouth daily-PRN PREVACID 30 MG CPDR 847485 LANSOPRAZOLE Inactive DOXYCYCLINE HYCLATE 100 MG TAB 1 tab twice a day for 14 days 2013 DOXYCYCLINE HYCLATE 100 MG TAB 6198093 DOXYCYCLINE HYCLATE Inactive XOPENEX 1.25 MG/3ML NEBU 1 neb every 4 hours if needed for cough/congestion XOPENEX 1.25 MG/3ML NEBU 982665 LEVALBUTEROL HCL Inactive CYCLOBENZAPRINE HCL 10 MG TABS 1/2 - 1 tab by mouth three times daily if needed for spasms/pain CYCLOBENZAPRINE HCL 10 MG TABS 196976 CYCLOBENZAPRINE HCL Inactive ALBUTEROL SULFATE 0.083 % NEBU SOLN one vial per nebulizer every 4-6 hours as needed ALBUTEROL SULFATE 0.083 % NEBU SOLN 765340 ALBUTEROL SULFATE Inactive CEFTIN 500 MG TAB 1 twice a day CEFTIN 500 MG TAB 198617 CEFUROXIME AXETIL Inactive ZOFRAN ODT 4 MG TBDP 1 pill dissolved by mouth every 4 hours if needed for nausea ZOFRAN ODT 4 MG TBDP 288433 ONDANSETRON Inactive ADULT ASPIRIN EC LOW STRENGTH 81 MG TBEC Take 1 tablet by mouth daily 2014 ADULT ASPIRIN EC LOW STRENGTH 81 MG TBEC 133960 ASPIRIN Inactive CALCIUM 600+D PLUS MINERALS 600-400 [...] or an apple NIACIN 500 MG TABS 686948 NIACIN Inactive NIASPAN 500 MG ORAL CR-TABS 1 pill nightly x 1 week, then 2 pills nightly x 1 week, then 3 pills nightly x 1 week, then 4 pills nightly NIASPAN 500 MG ORAL CR-TABS NIACIN (ANTIHYPERLIPIDEMIC) Inactive OXYCODONE HCL 5 MG ORAL CAPS 1 TAB PO Q HS OXYCODONE HCL 5 MG ORAL CAPS 5746890 OXYCODONE HCL Inactive BACTRIM DS 800-160 MG TAB 1 tab by mouth twice daily BACTRIM DS 800-160 MG TAB 197942 TRIMETHOPRIM-SULFAMETHOXAZOLE Inactive AZITHROMYCIN 250 MG TABS 2 po qd x 1 day, then 1 po qd x 4 days AZITHROMYCIN 250 MG TABS 0633507 AZITHROMYCIN Inactive CEFDINIR 300 MG CAPS by mouth twice a day CEFDINIR 300 MG CAPS 20020708 CEFDINIR Inactive AZITHROMYCIN 250 MG TABS 2 pills on day 1, then 1 pill daily x 4 days AZITHROMYCIN 250 MG TABS 0441457 AZITHROMYCIN Inactive DOXYCYCLINE HYCLATE 100 MG CAP 1 cap by mouth twice daily DOXYCYCLINE HYCLATE 100 MG CAP 8330713 DOXYCYCLINE HYCLATE Inactive FUROSEMIDE 20 MG TABS 1 pill by mouth daily, for edema FUROSEMIDE 20 MG TABS 077362 FUROSEMIDE Inactive AZITHROMYCIN 250 MG TABS 2 po qd x 1 day, then 1 po qd x 4 days AZITHROMYCIN 250 MG TABS 1801003 AZITHROMYCIN Inactive CEFTIN 500 MG TAB 1 twice a day CEFTIN 500 MG TAB 613321 CEFUROXIME AXETIL Inactive CEFDINIR 300 MG CAPS 1 po BID x 10 days CEFDINIR 300 MG CAPS 071677 CEFDINIR Inactive Immunizations Vaccine Administration Date Value Standard Description Seasonal influenza vaccine, injectable, containing preservative, for > 3 years old (Afluria, FluLaval, Fluzone, Fluvirin, Fluarix, Agriflu(>=18 yo)) Fluzone (>3 yrs.) [GMG051] Influenza, seasonal, injectable influenza immunization (Flu Vax) has been administered Influenza - Unspecified Formulation [CVX88] influenza virus vaccine, unspecified formulation Seasonal influenza vaccine, injectable, containing preservative, for > 3 years old (Afluria, FluLaval, Fluzone, Fluvirin, Fluarix, Agriflu(>=18 yo)) Fluzone (>3 yrs.) [OJO085] Influenza, seasonal, injectable pneumococcal immunization administered Pneumovax 23 [CVX33] pneumococcal polysaccharide vaccine, 23 valent dT (Diphtheria and Tetanus) booster given given Td(adult) unspecified formulation Boostrix (Tetanus toxoid, reduced diphtheria toxoid and acellular pertussis vaccine, adsorbed), booster Boostrix [PJM186] tetanus toxoid, reduced diphtheria toxoid, and acellular [...] Panel - Chemistry sodium, serum 145 mmol/L 643-742 9697/06/22 potassium, serum 3.9 mmol/L 3.5-5.2 chloride, serum 109 mmol/L 98-107 carbon dioxide, venous blood 23.4 mmol/L 21.0-32.0 blood glucose 92 mg/dL 65-110 calcium, serum 8.2 mg/dL 8.5-10.1 urea nitrogen, blood 24 mg/dL 7-18 creatinine, serum 1.30 mg/dL 0.60-1.30 Lab Report: [facility] Advanced Lipid and Inlammation Panel /30621 - Chemistry cholesterol, serum 198 mg/dL [phone]/04/30 HDL cholesterol, serum 65 mg/dL > OR=46 triglyceride, serum, fasting 82 mg/dL LDL cholesterol, serum 117 mg/dL cholesterol/HDL ratio, serum 3.0 calc < OR=5.0 cholesterol, serum 148 mg/dL 645-697 6901/09/02 HDL cholesterol, serum 55 mg/dL > OR=46 [...] (L) - Chemistry sodium, serum 145 mmol/L 498-268 4728/09/02 potassium, serum 4.6 mmol/L 3.5-5.2 chloride, serum [...] 51 mg/dL 30-200 cholesterol, serum 173 mg/dL 818-507 3173/04/28 HDL cholesterol, serum 63 mg/dL 32-96 LDL [...] mg/dL Encounters Code Encounter Date Provider Facility CPT-09536 Level 3 Est. Patient 11:02:19 LEADERSHIP DEVELOPMENT CONSULTANT Gab Padron MD [facility] CPT-38213 Level 4 Est. Patient 22:24:31 LEADERSHIP DEVELOPMENT CONSULTANT Gab Padron MD [facility] CPT-55508 Level 3 Est. Patient 18:33:46 LEADERSHIP DEVELOPMENT CONSULTANT Gab Padron MD [facility] CPT-97228 Level 3 Est. Patient 16:19:11 CDT Yolande Lindsay MD [facility] CPT-36921 Level 3 Est. Patient 18:59:14 CDT Yolande Lindsay MD [facility] CPT-55255 Level 4 Est. Patient 21:29:26 CDT Yolande Lindsay MD [facility] CPT-31985 Level 3 Est. Patient 07:37:45 CDT Yolande Lindsay MD [facility] CPT-74764 Level 3 Est. Patient 17:03:46 CDT Yolande Lindsay MD [facility] CPT-42888 Level 4 Est. Patient 20:02:13 LEADERSHIP DEVELOPMENT CONSULTANT Yolande Lindsay MD PhD [facility] CPT-73942 Level 3 Est. Patient 16:02:07 LEADERSHIP DEVELOPMENT CONSULTANT Alexis Ordaz MD [facility] CPT-62830 Level 3 Est. Patient 12:41:24 LEADERSHIP DEVELOPMENT CONSULTANT Yolande Lindsay MD PhD [facility] CPT-04311 Level 3 Est. Patient 15:41:20 LEADERSHIP DEVELOPMENT CONSULTANT Yolande Lindsay MD [facility] CPT-16251 Level 3 Est. Patient 13:20:02 LEADERSHIP DEVELOPMENT CONSULTANT Yolande Lindsay MD [facility] CPT-80184 Level 3 Est. Patient 15:00:38 CDT Jared Og MD [facility] CPT-97358 Level 3 Est. Patient 10:22:32 CDT Yolande Lindsay MD [facility]-20210 Level 3 Est. Patient 17:12:58 CDT Yolande Lindsay MD [facility] CPT-84149 Level 4 Est. Patient 13:30:58 CDT Yolande Lindsay MD [facility] CPT-93018 Level 4 New Patient 09:02:42 CDT Jared Og MD [facility]-53071 Level 3 Est. Patient 08:19:07 CDT Yolande Lindsay MD [facility]-21628 Level 3 Est. Patient 12:00:13 LEADERSHIP DEVELOPMENT CONSULTANT Gab Padron MD [facility] CPT-00049 Level 3 Est. Patient 16:15:23 LEADERSHIP DEVELOPMENT CONSULTANT Yolande Lindsay MD [facility] CPT-05621 Level 2 Est. Patient 19:47:15 CDT Yolande Lindsay MD [facility]-91867 Level 3 Est. Patient 21:38:31 CDT Yolande Lindsay MD [facility] CPT-10829 Level 3 Est. Patient 10:25:12 CDT Adiel PERAZA [facility] CPT-49166 Level 4 Est. Patient 10:51:58 CDT Yolande Lindsay MD [facility]-36045 Level 3 Est. Patient 14:04:55 LEADERSHIP DEVELOPMENT CONSULTANT Rodrigo Sarah [facility] CPT-30984 Level 3 Est. Patient 10:46:35 LEADERSHIP DEVELOPMENT CONSULTANT Rodrigo Sarah [facility] CPT-13063 Level 3 Est. Patient 14:24:37 LEADERSHIP DEVELOPMENT CONSULTANT Yolande Lindsay MD [facility] CPT-37186 Level 3 Est. Patient 17:41:58 LEADERSHIP DEVELOPMENT CONSULTANT Yolande Lindsay MD [facility] CPT-71190 Level 2 Est. Patient 22:01:41 LEADERSHIP DEVELOPMENT CONSULTANT Rodrigo Sarah [facility] CPT-20677 Level 2 Est. Patient 22:01:11 LEADERSHIP DEVELOPMENT CONSULTANT Rodrigo Sarah [facility] CPT-84253 Level 3 Est. Patient 10:12:29 LEADERSHIP DEVELOPMENT CONSULTANT Rodrigo Sarah [facility] CPT-76147 Level 3 Est. Patient 11:05:44 CDT Alexis Ordaz MD [facility] CPT-16742 Level 3 Est. Patient 14:57:20 CDT Yolande Lindsay MD [facility] CPT-50246 Level 3 Est. Patient 14:40:57 CDT Yolande Lindsay MD [facility] CPT-87975 Level 3 Est. Patient 20:55:40 CDT Yolande Lindsay MD [facility] CPT-76588 Level 3 Est. Patient 12:42:38 LEADERSHIP DEVELOPMENT CONSULTANT Yolande Lindsay MD [facility]-64893 Level 3 Est. Patient 11:54:49 LEADERSHIP DEVELOPMENT CONSULTANT Des Hines MD [facility] CPT-29663 Level 3 Est. Patient 17:06:38 CDT Dewayne PERAZA [facility] Procedures Code Procedure Name Date Entry Date Standard Description CPT-17969 LS spine comp w obliq 13:28:00 LEADERSHIP DEVELOPMENT CONSULTANT CPT-J1040 Depo Medrol 80 mg (Methyl Prednisolone Acetate) 10:51: 28 LEADERSHIP DEVELOPMENT CONSULTANT CPT-J1100 Decadron 8mg (Dexamethasone) 10:51:28 LEADERSHIP DEVELOPMENT CONSULTANT CPT-97377 Abx/Therapy Injection 10:51:28 LEADERSHIP DEVELOPMENT CONSULTANT [id number] Event Monitor - MC Transmission 09:12:32 CDT 08/06 [id number] Event Monitor - MC review and interp 09:12:32 CDT [id number] Event Monitor - MC recording 09:12:32 CDT CPT-59447 EKG Trac and Interp 16:50:22 CDT CPT-J1030 Depo Medrol 40 mg (Methyl Prednisolone Acetate) 17:05: 54 CDT CPT-J1100 Decadron 4mg (Dexamethasone) 17:05:54 CDT CPT-37087 Abx/Therapy Injection 17:05:54 CDT CPT-J1100 Decadron 4mg (Dexamethasone) 16:55:28 CDT CPT-J1030 Depo Medrol 40 mg (Methyl Prednisolone Acetate) 16:55: 28 CDT CPT-24960 Ankle Complete - Min 3V 15:58:50 CDT CPT-93883 Knee 3V 15:58:50 CDT CPT-08846 Hip comp min 2V 15:58:50 CDT CPT-J2270 Morphine Sulfate 10 mg 14:25:44 LEADERSHIP DEVELOPMENT CONSULTANT CPT-J2550 Phenergan 12.5 mg (Promethazine) 14:25:44 LEADERSHIP DEVELOPMENT CONSULTANT CPT-48338 Abx/Therapy Injection 14:25:44 LEADERSHIP DEVELOPMENT CONSULTANT CPT-J2550 Phenergan 12.5 mg (Promethazine) 14:08:03 LEADERSHIP DEVELOPMENT CONSULTANT CPT-J2270 Morphine Sulfate 10 mg 14:08:03 LEADERSHIP DEVELOPMENT CONSULTANT CPT-56907 Bladder Scan 15:00:38 CDT CPT-TCMM Transitional Care Mgmt-Moderate 09:52:22 CDT CPT-J1030 Depo Medrol 40 mg (Methyl Prednisolone Acetate) 10:55: 18 CDT CPT-J1100 Decadron 4mg (Dexamethasone) 10:55:18 CDT CPT-69755 Abx/Therapy Injection 10:55:18 CDT CPT-J1030 Depo Medrol 40 mg (Methyl Prednisolone Acetate) 10:22: 32 CDT CPT-J1100 Decadron 4mg (Dexamethasone) 10:22:32 CDT CPT-58638 Postop F/U Visit 14:37:13 CDT CPT-12801 Ankle Complete - Min 3V 17:11:58 CDT CPT-45365 Foot comp min 3V 17:11:58 CDT CPT-55560 Bladder Scan 09:56:58 CDT CPT-70159 Postop F/U Visit 09:56:58 CDT CPT-77105 Cystoscopy 09:02:42 CDT CPT-61123 Bladder Scan 09:02:42 CDT CPT-19035 Abd single AP View 16:00:35 CDT CPT-56243 Administration single or combination vaccine inc oral 10 :15:43 CDT CPT-95187 Influenza split virus > age 3 10:15:43 CDT CPT-52568 Nail Avulsion 09:24:57 CDT CPT-OV Office Visit 11:15:41 CDT CPT-45251 Abx/Therapy Injection 10:51:30 CDT CPT-J3301 Kenalog 40 mg (Triamcinolone Acetonide) 10:25:12 CDT CPT-J1100 Decadron 4mg (Dexamethasone) 10:25:12 CDT CPT-36898 Anoscopy diagnostic 10:36:12 CDT CPT-OV Office Visit 15:34:31 CDT CPT-50861 Abx/Therapy Injection 08:21:15 LEADERSHIP DEVELOPMENT CONSULTANT CPT-J1885 Toradol 60 mg (Ketorolac) 10:46:35 LEADERSHIP DEVELOPMENT CONSULTANT CPT-OV Office Visit 19:51:16 LEADERSHIP DEVELOPMENT CONSULTANT CPT-01513 Spec Collection and Handling Fee 14:34:18 LEADERSHIP DEVELOPMENT CONSULTANT CPT-PV Prev. Care Visit 14:19:18 LEADERSHIP DEVELOPMENT CONSULTANT CPT-84345 Postop F/U Visit 14:47:51 LEADERSHIP DEVELOPMENT CONSULTANT CPT-03422 Postop F/U Visit 15:15:14 LEADERSHIP DEVELOPMENT CONSULTANT CPT-73137 Postop F/U Visit 14:41:43 CDT CPT-68036 Postop F/U Visit 15:47:46 CDT CPT-OV Office Visit 15:27:23 CDT CPT-OV Office Visit 17:20:34 CDT CPT-54480 Abx/Therapy Injection 15:05:57 CDT CPT-J1100 Decadron 8mg (Dexamethasone) 14:44:57 CDT CPT-J1040 Depo Medrol 80 mg (Methyl Prednisolone Acetate) 14:44: 57 CDT CPT-JTINJ Joint Injection 10:17:37 CDT CPT-48984 Administration 2+ single or combination vaccines inc oral 13:01:46 LEADERSHIP DEVELOPMENT CONSULTANT CPT-78540 Administration single or combination vaccine inc oral 13 :01:46 LEADERSHIP DEVELOPMENT CONSULTANT CPT-81703 Pneumovax 13:01:46 LEADERSHIP DEVELOPMENT CONSULTANT CPT-33125 Influenza split virus > age 3 13:01:46 LEADERSHIP DEVELOPMENT CONSULTANT CPT-96143 Administration single or combination vaccine inc oral 08 :56:49 CDT CPT-36904 Tdap 08:56:49 CDT
--- OUTSIDE RECORDS SUMMARY | 2017-03-22 02:57 | XMS REPORT | Clinical Summary ---
Author Author Admin, E Organization [facility] Address Unknown Phone Unavailable Allergies, Adverse Reactions, Alerts Allergy Name Reaction Description Start Date Severity Status Provider VALENTIN Critical Active Rodrigo Montemayorl [facility] CHLORHEXIDINE GLUCONATE tongue and gums swollen Critical Active Hoadante Otto RMA NORFLEX Rash Critical Active Silvestrellina Frazell [facility] TRAZODONE HCL sees things Critical Active Dewayne [...] musculoskeletal system, NEC FREQUENCY, URINARY 788.41 Resolved Yolaned Lindsay MD PhD Urinary frequency ALLERGIC RHINITIS [...] MD Lumbago Cough 786.2 Active Jillina Tyrel [facility] Cough 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 Jillina Frazellilian [facility] 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 Anemia 285.9 Active Gab Padron MD Anemia, unspecified Conjunctivitis 372.30 Active Jillnacho Sarah APRN Conjunctivitis, unspecified Sinusitis 473.9 Active Silvestrellina Frazell [facility] Unspecified sinusitis (chronic) Nonspecific syndrome suggestive of viral illness 079.99 Active Jillina Frazell [facility] Unspecified viral infection Laryngitis 464.00 Active Jillina Frazell [facility] Acute laryngitis without mention of obstruction Abdominal [...] Flank pain, left 789.09 Active Jillina Frazell [facility] Abdominal pain, other specified site; multiple sites Abdominal pain, generalized 789.07 Active Jillina Farshadzell [facility] Abdominal pain, generalized Back pain, thoracic region, left 724.1 Active Jillina Frazell [facility] Pain in thoracic spine Abdominal pain, left [...] Yolande Lindsay MD PhD HEMATOCHEZIA ICD-578.1 Inactive Yloande Lindsay MD PhD HEMORRHOIDS, INTERNAL, WITH BLEEDING [...] 1/2 tab daily for 2 days PREDNISONE 41854523739 No Longer Active Gab Padron MD Active ZOFRAN ODT 4 MG TBDP 1 po q6hr PRN Nausea ONDANSETRON 80440992670 Active Jillina Frazell [facility] Active IBUPROFEN 600 MG TAB 1 tablet by mouth every 6 hours for 7 days, then 1 tablet every 6 hours as needed. Take with food IBUPROFEN 16577915793 Active Jillina Frazell [facility] Active BACTRIM DS 800-160 MG TAB 1 tab by mouth twice daily TRIMETHOPRIM-SULFAMETHOXAZOLE 40175407873 No Longer Active Gab Padron MD Active ADVAIR DISKUS 250-50 MCG/DOSE AEPB 1 puff BID FLUTICASONE- SALMETEROL 70270322647 Active Rodrigo Sarah APRN Active LEVOTHYROXINE SODIUM 75 MCG TABS Take 1 tab daily LEVOTHYROXINE SODIUM 38110849353 No Longer Active Mariana FLEMING Active SYNTHROID 88 MCG ORAL TABS Take one by mouth daily LEVOTHYROXINE SODIUM 08266076193 Active Mariana FLEMING Active CHERATUSSIN AC 100-10 MG/5ML SYRP 1 tsp by mouth every 4 hours as needed for cough GUAIFENESIN-CODEINE 45541390548 No Longer Active Gab Padron MD Active POLYTRIM 86624-3.1 UNIT/ML-% SOLN 1 gtt to affected eye q3h x 7 days POLYMYXIN B-TRIMETHOPRIM 09930329940 No Longer Active Gab Padron MD Active FLUTICASONE PROPIONATE 50 MCG/ACT SUSP 1 to 2 sprays each nostril daily 04/21 FLUTICASONE PROPIONATE 73362587392 No Longer Active Gab Padron MD Active TRILEPTAL 600 MG TABS Take one 1 tablet in Am and 1 tablet at night OXCARBAZEPINE 81086042302 Active Gab Padron MD Active CEFDINIR 300 MG CAPS 1 po BID x 10 days CEFDINIR 23508864605 No Longer Active Rodrigo Sarah APRN Active CEFTIN 500 MG TAB 1 twice a day CEFUROXIME AXETIL 42354740096 No Longer Active Gab Padron MD Active AZITHROMYCIN 250 MG TABS 2 po qd x 1 day, then 1 po qd x 4 days AZITHROMYCIN 90153397743 No Longer Active Rodrigo Sarah APRN Active CLARITIN 10 MG TAB 1 tablet by mouth daily as needed for allergies LORATADINE 87995637993 Active Rodrigo Sarah APRN Active OXYCODONE HCL 5 MG ORAL CAPS 1 TAB PO Q HS OXYCODONE HCL 25471324315 No Longer Active Rodrigo Sarah APRN Active NIASPAN 500 MG ORAL CR-TABS 1 pill nightly x 1 week, then 2 pills nightly x 1 week, then 3 pills nightly x 1 week, then 4 pills nightly NIACIN (ANTIHYPERLIPIDEMIC) 61058292604 No Longer Active Rodrigo Sarah APRN Active NIACIN 500 MG TABS 1 pill by mouth nightly x 1 week, then 2 pills x 1 week, then 3 pills x 1 week, then 4 pills nightly - take after evening meal, with applesauce or an apple NIACIN 06827803679 No Longer Active Yolande Lindsay MD PhD Active FISH OIL 1000 MG CAPS 3 pills daily OMEGA-3 FATTY ACIDS 05868847520 Active Yolande Lindsay MD PhD Active TRIAMCINOLONE ACETONIDE 0.1 % CREA apply bid sparingly to rash TRIAMCINOLONE ACETONIDE 91184884037 Active Yolande Lindsay MD PhD Active FUROSEMIDE 20 MG TAB 1 tablet by mouth daily FUROSEMIDE 06071637723 Active Tisha Lambert APRN Active LISINOPRIL 20 MG ORAL TABS 1 tab by mouth daily LISINOPRIL 72364332430 Active Gba Padron MD Active FUROSEMIDE 20 MG TABS 1 pill by mouth daily, for edema FUROSEMIDE 54713392469 No Longer Active Yolande Lindsay MD PhD Active ATORVASTATIN CALCIUM 10 MG TABS 1 pill by mouth daily, for cholesterol 09/06 ATORVASTATIN CALCIUM 12902640955 Active Gab Padron MD Active CALCIUM 600+D PLUS MINERALS 600-400 MG-UNIT ORAL CHEW 1 tab by mouth daily CALCIUM CARBONATE-VIT D-MIN 61765248504 No Longer Active Yolande Lindsay MD PhD Active CYCLOBENZAPRINE HCL 10 MG TABS 1 tablet by mouth three times daily as needed for muscle spasm/pain CYCLOBENZAPRINE HCL 24776728371 Active Yolande Lindsay MD PhD Active ONDANSETRON 4 MG TBDP 1 q4h PRN nausea ONDANSETRON 60405789000 Active Yolande Lindsay MD PhD Active ADULT ASPIRIN EC LOW STRENGTH 81 MG TBEC Take 1 tablet by mouth daily 2014 ASPIRIN 87735827882 No Longer Active Yolande Lindsay MD PhD Active ZOFRAN ODT 4 MG TBDP 1 pill dissolved by mouth every 4 hours if needed for nausea ONDANSETRON 37704553159 No Longer Active Yolande Lindsay MD PhD Active CEFTIN 500 MG TAB 1 twice a day CEFUROXIME AXETIL 96103599048 No Longer Active Yolande Lindsay MD PhD Active ALBUTEROL SULFATE 0.083 % NEBU SOLN one vial per nebulizer every 4-6 hours as needed ALBUTEROL SULFATE 07370698828 No Longer Active Alexis Ordaz MD Active DOXYCYCLINE HYCLATE 100 MG CAP 1 cap by mouth twice daily DOXYCYCLINE HYCLATE 75411557367 No Longer Active Yolande Lindsay MD PhD Active CYCLOBENZAPRINE HCL 10 MG TABS 1/2 - 1 tab by mouth three times daily if needed for spasms/pain CYCLOBENZAPRINE HCL 43754115431 No Longer Active Yolande Lindsay MD PhD Active AZITHROMYCIN 250 MG TABS 2 pills on day 1, then 1 pill daily x 4 days AZITHROMYCIN 13645407006 No Longer Active Yolande Lindsay MD PhD Active XOPENEX 1.25 MG/3ML NEBU 1 neb every 4 hours if needed for cough/congestion LEVALBUTEROL HCL 93788163505 No Longer Active Yolande Lindsay MD PhD Active DOXYCYCLINE HYCLATE 100 MG TAB 1 tab twice a day for 14 days 2013 DOXYCYCLINE HYCLATE 89423273448 No Longer Active Yolande Lindsay MD PhD Active PREVACID 30 MG CPDR Take 1 tablet by mouth daily-PRN LANSOPRAZOLE 60474880474 No Longer Active Yolande Lindsay MD PhD Active PA VITAMIN D-3 2000 UNIT CAPS 1 CAP PO DAILY CHOLECALCIFEROL 68441276659 No Longer Active Yolande Lindsay MD PhD Active CEFDINIR 300 MG CAPS by mouth twice a day CEFDINIR 92727796723 No Longer Active Gab Padron MD Active TOPAMAX 50 MG TABS 1 PO twice daily TOPIRAMATE 16734655647 Active Yolande Lindsay MD PhD Active AZITHROMYCIN 250 MG TABS 2 po qd x 1 day, then 1 po qd x 4 days AZITHROMYCIN 73948746247 No Longer Active Yolande Lindsay MD PhD Active DICLOFENAC SODIUM 75 MG TBEC 1 tablet by q 12 hours PRN headaches DICLOFENAC SODIUM 05660713152 No Longer Active Yolande Lindsay MD PhD Active FLONASE 50 MCG/ACT SUSP 1 spray each nostril am and hs FLUTICASONE PROPIONATE 87325984547 No Longer Active Todd Callaway MD Active ANUSOL-HC 25 MG SUPPOSITORY 1 rectally twice a day as needed for hemorrhoids HYDROCORTISONE JAYDEN (RECTAL) 74619273627 No Longer Active Yolande Lindsay MD PhD Active ANUSOL-HC 25 MG SUPPOSITORY 1 suppository rectally each evening as needed for anal fissure HYDROCORTISONE JAYDEN (RECTAL) 88537722646 No Longer Active LONNIE Iglesias Active VALIUM 5 MG TAB 1 po 30 minutes prior to your MRI DIAZEPAM 39862994756 No Longer Active LONNIE Iglesias Active METHOCARBAMOL 750 MG TABS 1 PO QID PRN METHOCARBAMOL 38365988739 No Longer Active Daphne Wetzel [facility] Active NITROSTAT 0.4 MG SUBL as directed NITROGLYCERIN 57894423557 No Longer Active Rodrigo Sarah APRN Active ROBAXIN-750 750 MG TABS 2 four times a day for 3 days as needed for muscle spasm, then 1 four times a day as needed METHOCARBAMOL 40920552414 No Longer Active Rodrigo Sarah APRN Active HYDROCODONE-ACETAMINOPHEN 5-325 MG TABS 1 q 4-6 hrs prn HYDROCODONE-ACETAMINOPHEN 20978240052 No Longer Active Rodrigo Sarah APRN Active VERAPAMIL HCL CR 180 MG CR-TABS TAKE 1 TAB DAILY VERAPAMIL HCL 85145925317 No Longer Active Yolande Lindsay MD PhD Active BACTRIM DS 800-160 MG TAB 1 tab by mouth twice daily TRIMETHOPRIM-SULFAMETHOXAZOLE 72644014033 No Longer Active Yolande Lindsay MD PhD Active NEXIUM 40 MG PACK 1 by mouth daily ESOMEPRAZOLE MAGNESIUM 15037393079 No Longer Active Des Hines MD Active EPIPEN 2-CHARLETTE 0.3 MG/0.3ML OMARI as need for allergic reaction EPINEPHRINE 34119284968 Active Yolande Lindsay MD PhD Active NEXIUM 40 MG CPDR 1 PO Q D DAY ESOMEPRAZOLE MAGNESIUM 11124430025 No Longer Active Sadia Perry RN Active NEXIUM 40 MG PACK 1 by mouth daily NEXIUM 40 MG PACK ESOMEPRAZOLE MAGNESIUM Inactive VERAPAMIL HCL CR 180 MG CR-TABS TAKE 1 TAB DAILY VERAPAMIL HCL CR 180 MG CR-TABS VERAPAMIL HCL Inactive HYDROCODONE-ACETAMINOPHEN 5-325 MG TABS 1 q 4-6 hrs prn HYDROCODONE-ACETAMINOPHEN 5-325 MG TABS 041100 HYDROCODONE-ACETAMINOPHEN Inactive ROBAXIN-750 750 MG TABS 2 four times a day for 3 days as needed for muscle spasm, then 1 four times a day as needed ROBAXIN-750 750 MG TABS 606712 METHOCARBAMOL Inactive NITROSTAT 0.4 MG SUBL as directed NITROSTAT 0.4 MG SUBL 814061 NITROGLYCERIN Inactive METHOCARBAMOL 750 MG TABS 1 PO QID PRN METHOCARBAMOL 750 MG TABS 943855 METHOCARBAMOL Inactive VALIUM 5 MG TAB 1 po 30 minutes prior to your MRI VALIUM 5 MG TAB 580692 DIAZEPAM Inactive ANUSOL-HC 25 MG SUPPOSITORY 1 suppository rectally each evening as needed for anal fissure ANUSOL-HC 25 MG SUPPOSITORY 5264303 HYDROCORTISONE JAYDEN (RECTAL) Inactive ANUSOL-HC 25 MG SUPPOSITORY 1 rectally twice a day as needed for hemorrhoids ANUSOL-HC 25 MG SUPPOSITORY 3682846 HYDROCORTISONE JAYDEN (RECTAL) Inactive FLONASE 50 MCG/ACT SUSP 1 spray each nostril am and hs FLONASE 50 MCG/ACT SUSP FLUTICASONE PROPIONATE Inactive DICLOFENAC SODIUM 75 MG TBEC 1 tablet by q 12 hours PRN headaches DICLOFENAC SODIUM 75 MG TBEC 624290 DICLOFENAC SODIUM Inactive PA VITAMIN D-3 2000 UNIT CAPS 1 CAP PO DAILY PA VITAMIN D-3 2000 UNIT CAPS CHOLECALCIFEROL Inactive PREVACID 30 MG CPDR Take 1 tablet by mouth daily-PRN PREVACID 30 MG CPDR 843324 LANSOPRAZOLE Inactive DOXYCYCLINE HYCLATE 100 MG TAB 1 tab twice a day for 14 days 2013 DOXYCYCLINE HYCLATE 100 MG TAB 5973679 DOXYCYCLINE HYCLATE Inactive XOPENEX 1.25 MG/3ML NEBU 1 neb every 4 hours if needed for cough/congestion XOPENEX 1.25 MG/3ML NEBU 603897 LEVALBUTEROL HCL Inactive CYCLOBENZAPRINE HCL 10 MG TABS 1/2 - 1 tab by mouth three times daily if needed for spasms/pain CYCLOBENZAPRINE HCL 10 MG TABS 682343 CYCLOBENZAPRINE HCL Inactive ALBUTEROL SULFATE 0.083 % NEBU SOLN one vial per nebulizer every 4-6 hours as needed ALBUTEROL SULFATE 0.083 % NEBU SOLN 619722 ALBUTEROL SULFATE Inactive CEFTIN 500 MG TAB 1 twice a day CEFTIN 500 MG TAB 124414 CEFUROXIME AXETIL Inactive ZOFRAN ODT 4 MG TBDP 1 pill dissolved by mouth every 4 hours if needed for nausea ZOFRAN ODT 4 MG TBDP 089837 ONDANSETRON Inactive ADULT ASPIRIN EC LOW STRENGTH 81 MG TBEC Take 1 tablet by mouth daily 2014 ADULT ASPIRIN EC LOW STRENGTH 81 MG TBEC 451606 ASPIRIN Inactive CALCIUM 600+D PLUS MINERALS 600-400 [...] or an apple NIACIN 500 MG TABS 425110 NIACIN Inactive NIASPAN 500 MG ORAL CR-TABS 1 pill nightly x 1 week, then 2 pills nightly x 1 week, then 3 pills nightly x 1 week, then 4 pills nightly NIASPAN 500 MG ORAL CR-TABS NIACIN (ANTIHYPERLIPIDEMIC) Inactive OXYCODONE HCL 5 MG ORAL CAPS 1 TAB PO Q HS OXYCODONE HCL 5 MG ORAL CAPS 7985660 OXYCODONE HCL Inactive FLUTICASONE PROPIONATE 50 MCG/ACT SUSP 1 to 2 sprays each nostril daily 04/21 FLUTICASONE PROPIONATE 50 MCG/ACT SUSP 2528944 FLUTICASONE PROPIONATE Inactive POLYTRIM 94299-9.1 UNIT/ML-% SOLN 1 gtt to affected eye q3h x 7 days POLYTRIM 60525-5.1 UNIT/ML-% SOLN 230589 POLYMYXIN B- TRIMETHOPRIM Inactive CHERATUSSIN AC 100-10 MG/5ML SYRP 1 tsp by mouth every 4 hours as needed for cough CHERATUSSIN AC 100-10 MG/5ML SYRP 588860 GUAIFENESIN-CODEINE Inactive LEVOTHYROXINE SODIUM 75 MCG TABS Take 1 tab daily LEVOTHYROXINE SODIUM 75 MCG TABS 710742 LEVOTHYROXINE SODIUM Inactive BACTRIM DS 800-160 MG TAB 1 tab by mouth twice daily BACTRIM DS 800-160 MG TAB 138599 TRIMETHOPRIM-SULFAMETHOXAZOLE Inactive AZITHROMYCIN 250 MG TABS 2 po qd x 1 day, then 1 po qd x 4 days AZITHROMYCIN 250 MG TABS 4350695 AZITHROMYCIN Inactive CEFDINIR 300 MG CAPS by mouth twice a day CEFDINIR 300 MG CAPS 20020708 CEFDINIR Inactive AZITHROMYCIN 250 MG TABS 2 pills on day 1, then 1 pill daily x 4 days AZITHROMYCIN 250 MG TABS 9333586 AZITHROMYCIN Inactive DOXYCYCLINE HYCLATE 100 MG CAP 1 cap by mouth twice daily DOXYCYCLINE HYCLATE 100 MG CAP 9473621 DOXYCYCLINE HYCLATE Inactive FUROSEMIDE 20 MG TABS 1 pill by mouth daily, for edema FUROSEMIDE 20 MG TABS 099939 FUROSEMIDE Inactive AZITHROMYCIN 250 MG TABS 2 po qd x 1 day, then 1 po qd x 4 days AZITHROMYCIN 250 MG TABS 5434807 AZITHROMYCIN Inactive CEFTIN 500 MG TAB 1 twice a day CEFTIN 500 MG TAB 687299 CEFUROXIME AXETIL Inactive CEFDINIR 300 MG CAPS 1 po BID x 10 days CEFDINIR 300 MG CAPS 20020708 CEFDINIR Inactive BACTRIM DS 800-160 MG TAB 1 tab by mouth twice daily BACTRIM DS 800-160 MG TAB 689099 TRIMETHOPRIM-SULFAMETHOXAZOLE Inactive PREDNISONE 20 MG TAB 2 tabs daily for 3 days, 1 tab daily for 3 days, 1/2 tab daily for 2 days PREDNISONE 20 MG TAB 866514 PREDNISONE Inactive Immunizations Vaccine Administration Date Value Standard Description Seasonal influenza vaccine, injectable, containing preservative, for > 3 years old (Afluria, FluLaval, Fluzone, Fluvirin, Fluarix, Agriflu(>=18 yo)) Fluzone (>3 yrs.) [WCG974] Influenza, seasonal, injectable influenza immunization (Flu Vax) has been administered Influenza - Unspecified Formulation [CVX88] influenza virus vaccine, unspecified formulation Seasonal influenza vaccine, injectable, containing preservative, for > 3 years old (Afluria, FluLaval, Fluzone, Fluvirin, Fluarix, Agriflu(>=18 yo)) Fluzone (>3 yrs.) [BCZ008] Influenza, seasonal, injectable pneumococcal immunization administered Pneumovax 23 [CVX33] pneumococcal polysaccharide vaccine, 23 valent dT (Diphtheria and Tetanus) booster given given Td(adult) unspecified formulation Boostrix (Tetanus toxoid, reduced diphtheria toxoid and acellular pertussis vaccine, adsorbed), booster Boostrix [KAP002] tetanus toxoid, reduced diphtheria toxoid, and acellular [...] pressure, diastolic - 8462-4 78 mm[Hg] BP weldno blood pressure, systolic - 8480-6 154 mm[Hg] [...] Panel - Chemistry sodium, serum 142 mmol/L 635-860 0345/06/30 potassium, serum 4.4 mmol/L 3.5-5.2 chloride, serum [...] Rate - Chemistry sodium, serum 139 mmol/L 937-299 2215/03/24 carbon dioxide, venous blood 22.4 mmol/L 21.0-32.0 [...] ... - Chemistry sodium, serum 143 mmol/L 617-364 4712/05/02 carbon dioxide, venous blood 25.6 mmol/L 21.0-32.0 [...] dipstick Negative Negative sodium, serum 142 mmol/L 589-447 3545/07/18 carbon dioxide, venous blood 27.8 mmol/L 21.0-32.0 [...] negative Encounters Code Encounter Date Provider Facility CPT-10966 Level 4 Est. Patient 16:31:27 CDT Gab Padron MD [facility] CPT-19497 Level 2 Est. Patient 12:23:38 CDT Jared Og MD [facility] CPT-48936 Level 3 Est. Patient 11:01:51 CDT Gab Padron MD [facility] CPT-90337 Level 3 Est. Patient 15:27:02 CDT Jared Og MD [facility] CPT-75268 Level 4 Est. Patient 09:25:27 CDT Gab Padron MD [facility] CPT-93813 Level 3 Est. Patient 10:29:41 CDT Rodrigo Sarah [facility] CPT-82900 Level 4 Est. Patient 17:51:05 CDT Gab Padron MD [facility] CPT-96396 Level 3 Est. Patient 14:18:08 CDT Gab Padron MD [facility] CPT-20084 Level 4 Est. Patient 10:18:54 CDT Gab Padron MD [facility] CPT-20255 Level 3 Est. Patient 11:30:07 CDT Rodrigo Sarah [facility] CPT-11100 Level 4 Est. Patient 21:02:30 MASH PREPARATORY OPERATOR Gab Padron MD [facility] CPT-13750 Level 3 Est. Patient 11:02:19 MASH PREPARATORY OPERATOR Gab Padron MD [facility] CPT-15565 Level 4 Est. Patient 22:24:31 MASH PREPARATORY OPERATOR Gab Padron MD [facility] CPT-70409 Level 3 Est. Patient 18:33:46 MASH PREPARATORY OPERATOR Gab Padron MD [facility] CPT-94447 Level 3 Est. Patient 16:19:11 CDT Yolande Lindsay MD [facility]-08338 Level 3 Est. Patient 18:59:14 CDT Yolande Lindsay MD [facility]-64861 Level 4 Est. Patient 21:29:26 CDT Yolande Lindsay MD [facility]-19244 Level 3 Est. Patient 07:37:45 CDT Yolande Lindsay MD [facility]-61926 Level 3 Est. Patient 17:03:46 CDT Yolande Lindsay MD [facility]-95661 Level 4 Est. Patient 20:02:13 MASH PREPARATORY OPERATOR Yolande Lindsay MD [facility]-95972 Level 3 Est. Patient 16:02:07 MASH PREPARATORY OPERATOR Alexis Ordaz MD [facility] named [facility]-32640 Level 3 Est. Patient 12:41:24 MASH PREPARATORY OPERATOR Yolande Lindsay MD [facility]-16646 Level 3 Est. Patient 15:41:20 MASH PREPARATORY OPERATOR Yolande Lindsay MD [facility]-50209 Level 3 Est. Patient 13:20:02 MASH PREPARATORY OPERATOR Yolande Lindsay MD [facility]-36536 Level 3 Est. Patient 15:00:38 CDT Jared Og MD [facility]-54065 Level 3 Est. Patient 10:22:32 CDT Yolande Lindsay MD [facility]-26378 Level 3 Est. Patient 17:12:58 CDT Yolande Lindsay MD [facility]-72260 Level 4 Est. Patient 13:30:58 CDT Yolande Lindsay MD [facility]-27492 Level 4 New Patient 09:02:42 CDT Jared Og MD [facility]-84924 Level 3 Est. Patient 08:19:07 CDT Yolande Lindsay MD [facility]-08982 Level 3 Est. Patient 12:00:13 MASH PREPARATORY OPERATOR Gab Padron MD [facility] named [facility]-30555 Level 3 Est. Patient 16:15:23 MASH PREPARATORY OPERATOR Yolande Lindsay MD [facility]63769 Level 2 Est. Patient 19:47:15 CDT Yolande Lindsay MD [facility]41667 Level 3 Est. Patient 21:38:31 CDT Yolande Lindsay MD [facility]42983 Level 3 Est. Patient 10:25:12 CDT Adiel PERAZA Formerly named [facility]-94304 Level 4 Est. Patient 10:51:58 CDT Yolande Lindsay MD [facility]-62670 Level 3 Est. Patient 14:04:55 MASH PREPARATORY OPERATOR Rodrigo Sarah [facility]-36901 Level 3 Est. Patient 10:46:35 MASH PREPARATORY OPERATOR Rodrigo Sarah [facility]-93081 Level 3 Est. Patient 14:24:37 MASH PREPARATORY OPERATOR Yolande Lindsay MD [facility]-29347 Level 3 Est. Patient 17:41:58 MASH PREPARATORY OPERATOR Yolande Lindsay MD [facility]09983 Level 2 Est. Patient 22:01:41 MASH PREPARATORY OPERATOR Rodrigo Sarah [facility]-01070 Level 2 Est. Patient 22:01:11 MASH PREPARATORY OPERATOR Rodrigo Sarah [facility]-93514 Level 3 Est. Patient 10:12:29 MASH PREPARATORY OPERATOR Rodrigo Sarah [facility]-22786 Level 3 Est. Patient 11:05:44 CDT Alexis Ordaz MD [facility] CPT-48589 Level 3 Est. Patient 14:57:20 CDT Yolande Lindsay MD [facility] CPT-84974 Level 3 Est. Patient 14:40:57 CDT Yolande Lindsay MD [facility] CPT-43335 Level 3 Est. Patient 20:55:40 CDT Yolande Lindsay MD [facility] CPT-64915 Level 3 Est. Patient 12:42:38 MASH PREPARATORY OPERATOR Yolande Lindsay MD [facility] CPT-96905 Level 3 Est. Patient 11:54:49 MASH PREPARATORY OPERATOR Des Hines MD [facility] CPT-81029 Level 3 Est. Patient 17:06:38 CDT Dewayne PERAZA [facility] Procedures Code Procedure Name Date Entry Date Standard Description CPT-98586 First Vx - Ix admin via ID IM or jet injects without counseling by physician 11:52:31 CDT CPT-63185 Fluzone Preservative Free Intramuscular Suspension 11:52 :31 CDT CPT-54983 Foot, left, comp min 3V - XRAY USE ONLY 09:24:54 CDT CPT-85565 Abd single AP View - XRAY USE ONLY 11:16:17 CDT CPT-63027 T spine AP/ Lat - XRAY USE ONLY 09:34:21 CDT CPT-26667 Chest 2V Frontal and Lat - XRAY USE ONLY 10:48:51 CDT CPT-56521 LS spine comp w obliq 13:28:00 MASH PREPARATORY OPERATOR CPT-J1040 Depo Medrol 80 mg (Methyl Prednisolone Acetate) 10:51: 28 MASH PREPARATORY OPERATOR CPT-J1100 Decadron 8mg (Dexamethasone) 10:51:28 MASH PREPARATORY OPERATOR CPT-02931 Abx/Therapy Injection 10:51:28 MASH PREPARATORY OPERATOR CPT-J1100 Decadron 8mg (Dexamethasone) 21:02:30 MASH PREPARATORY OPERATOR CPT-J1040 Depo Medrol 80 mg (Methyl Prednisolone Acetate) 21:02: 30 MASH PREPARATORY OPERATOR [id number] Event Monitor - MC Transmission 09:12:32 CDT 08/06 [id number] Event Monitor - MC review and interp 09:12:32 CDT [id number] Event Monitor - MC recording 09:12:32 CDT CPT-00736 EKG Trac and Interp 16:50:22 CDT CPT-J1030 Depo Medrol 40 mg (Methyl Prednisolone Acetate) 17:05: 54 CDT CPT-J1100 Decadron 4mg (Dexamethasone) 17:05:54 CDT CPT-22563 Abx/Therapy Injection 17:05:54 CDT CPT-J1100 Decadron 4mg (Dexamethasone) 16:55:28 CDT CPT-J1030 Depo Medrol 40 mg (Methyl Prednisolone Acetate) 16:55: 28 CDT CPT-18551 Ankle Complete - Min 3V 15:58:50 CDT CPT-88309 Knee 3V 15:58:50 CDT CPT-17162 Hip comp min 2V 15:58:50 CDT CPT-J2270 Morphine Sulfate 10 mg 14:25:44 MASH PREPARATORY OPERATOR CPT-J2550 Phenergan 12.5 mg (Promethazine) 14:25:44 MASH PREPARATORY OPERATOR CPT-00590 Abx/Therapy Injection 14:25:44 MASH PREPARATORY OPERATOR CPT-J2550 Phenergan 12.5 mg (Promethazine) 14:08:03 MASH PREPARATORY OPERATOR CPT-J2270 Morphine Sulfate 10 mg 14:08:03 MASH PREPARATORY OPERATOR CPT-70251 Bladder Scan 15:00:38 CDT CPT-TCMM Transitional Care Mgmt-Moderate 09:52:22 CDT CPT-J1030 Depo Medrol 40 mg (Methyl Prednisolone Acetate) 10:55: 18 CDT CPT-J1100 Decadron 4mg (Dexamethasone) 10:55:18 CDT CPT-40452 Abx/Therapy Injection 10:55:18 CDT CPT-J1030 Depo Medrol 40 mg (Methyl Prednisolone Acetate) 10:22: 32 CDT CPT-J1100 Decadron 4mg (Dexamethasone) 10:22:32 CDT CPT-42520 Postop F/U Visit 14:37:13 CDT CPT-91580 Ankle Complete - Min 3V 17:11:58 CDT CPT-63705 Foot comp min 3V 17:11:58 CDT CPT-23032 Bladder Scan 09:56:58 CDT CPT-98849 Postop F/U Visit 09:56:58 CDT CPT-52282 Cystoscopy 09:02:42 CDT CPT-03346 Bladder Scan 09:02:42 CDT CPT-22551 Abd single AP View 16:00:35 CDT CPT-20194 Administration single or combination vaccine inc oral 10 :15:43 CDT CPT-00489 Influenza split virus > age 3 10:15:43 CDT CPT-37739 Nail Avulsion 09:24:57 CDT CPT-OV Office Visit 11:15:41 CDT CPT-54555 Abx/Therapy Injection 10:51:30 CDT CPT-J3301 Kenalog 40 mg (Triamcinolone Acetonide) 10:25:12 CDT CPT-J1100 Decadron 4mg (Dexamethasone) 10:25:12 CDT CPT-91084 Anoscopy diagnostic 10:36:12 CDT CPT-OV Office Visit 15:34:31 CDT CPT-43833 Abx/Therapy Injection 08:21:15 MASH PREPARATORY OPERATOR CPT-J1885 Toradol 60 mg (Ketorolac) 10:46:35 MASH PREPARATORY OPERATOR CPT-OV Office Visit 19:51:16 MASH PREPARATORY OPERATOR CPT-28509 Spec Collection and Handling Fee 14:34:18 MASH PREPARATORY OPERATOR CPT-PV Prev. Care Visit 14:19:18 MASH PREPARATORY OPERATOR CPT-87054 Postop F/U Visit 14:47:51 MASH PREPARATORY OPERATOR CPT-11135 Postop F/U Visit 15:15:14 MASH PREPARATORY OPERATOR CPT-89285 Postop F/U Visit 14:41:43 CDT CPT-90612 Postop F/U Visit 15:47:46 CDT CPT-OV Office Visit 15:27:23 CDT CPT-OV Office Visit 17:20:34 CDT CPT-88006 Abx/Therapy Injection 15:05:57 CDT CPT-J1100 Decadron 8mg (Dexamethasone) 14:44:57 CDT CPT-J1040 Depo Medrol 80 mg (Methyl Prednisolone Acetate) 14:44: 57 CDT CPT-JTINJ Joint Injection 10:17:37 CDT CPT-20380 Administration 2+ single or combination vaccines inc oral 13:01:46 MASH PREPARATORY OPERATOR CPT-53428 Administration single or combination vaccine inc oral 13 :01:46 MASH PREPARATORY OPERATOR CPT-18676 Pneumovax 13:01:46 MASH PREPARATORY OPERATOR CPT-42676 Influenza split virus > age 3 13:01:46 MASH PREPARATORY OPERATOR CPT-01978 Administration single or combination vaccine inc oral 08 :56:49 CDT CPT-33396 Tdap 08:56:49 CDT
--- OUTSIDE RECORDS SUMMARY | 2017-03-22 03:01 | XMS REPORT | Clinical Summary ---
Author Author Admin, E Organization [facility] Address Unknown Phone Unavailable Allergies, Adverse Reactions, Alerts Allergy Name Reaction Description Start Date Severity Status Provider VALENTIN Critical Active Rodrigo Fracharlottel MEDICAL PHYSICS PROFESSOR CHLORHEXIDINE GLUCONATE tongue and gums swollen Critical Active Hoa Otto RMA NORFLEX Rash Critical Active Silvestrellina Frazell MEDICAL PHYSICS PROFESSOR TRAZODONE HCL sees things Critical Active [...] site; multiple sites Edema 782.3 Active Yolande Lidnsay MD PhD Edema Rash 782.1 Resolved Gab Padron MD Rash and other nonspecific skin eruption Back pain, lumbar 724.2 Resolved Gba Padron MD Lumbago Cough 786.2 Resolved Gab [...] 1 tab by mouth twice daily TRIMETHOPRIM-SULFAMETHOXAZOLE 51780887327 Active Tisha Lambert APRN Active ADVAIR DISKUS 250-50 MCG/DOSE AEPB 1 puff BID FLUTICASONE-SALMETEROL 89057918600 No Longer Active Todd Callaway MD Active ONDANSETRON 4 MG TBDP 1 q4h PRN nausea ONDANSETRON 75608032062 No Longer Active LONNIE Iglesias Active FISH OIL 1000 MG CAPS 3 pills daily OMEGA-3 FATTY ACIDS 25281485652 No Longer Active LONNIE Iglesias Active CETIRIZINE HCL 10 MG ORAL TABS 1 po qd PRN Allergies CETIRIZINE HCL 54502987427 Active Gab Padron MD Active CLARITIN 10 MG TAB 1 tablet by mouth daily as needed for allergies LORATADINE 25692935731 No Longer Active Gab Padron MD Active PREDNISONE 20 MG TAB take 3 tabs daily for 3 days, 2 tabs daily for 3 days, 1 tab daily for 3 days, 1/2 tab daily for 3 days PREDNISONE 21106517505 No Longer Active Tisha Lambert APRN Active TRAMADOL HCL 50 MG TABS 1 tab po every 6 hrs prn pain TRAMADOL HCL 12221403553 Active Gab Padron MD Active PREDNISONE 20 MG TAB 2 tabs daily for 3 days, 1 tab daily for 3 days, 1/2 tab daily for 2 days PREDNISONE 09081030848 No Longer Active Gab Padron MD Active ZOFRAN ODT 4 MG TBDP 1 po q6hr PRN Nausea ONDANSETRON 07775976113 Active Gab Padron MD Active IBUPROFEN 600 MG TAB 1 tablet by mouth every 6 hours for 7 days, then 1 tablet every 6 hours as needed. Take with food IBUPROFEN 12119366282 Active Rodrigo Sarah APRN Active BACTRIM DS 800-160 MG TAB 1 tab by mouth twice daily TRIMETHOPRIM-SULFAMETHOXAZOLE 68613560441 No Longer Active Gab Padron MD Active LEVOTHYROXINE SODIUM 75 MCG TABS Take 1 tab daily LEVOTHYROXINE SODIUM 03497836015 No Longer Active Mariana Cuadra [facility] Active SYNTHROID 88 MCG ORAL TABS Take one by mouth daily LEVOTHYROXINE SODIUM 96114429034 Active Gab Padron MD Active CHERATUSSIN AC 100-10 MG/5ML SYRP 1 tsp by mouth every 4 hours as needed for cough GUAIFENESIN-CODEINE 60311346699 No Longer Active Gab Padron MD Active POLYTRIM 01402-5.1 UNIT/ML-% SOLN 1 gtt to affected eye q3h x 7 days POLYMYXIN B-TRIMETHOPRIM 26100612821 No Longer Active Gab Padron MD Active FLUTICASONE PROPIONATE 50 MCG/ACT SUSP 1 to 2 sprays each nostril daily 04/21 FLUTICASONE PROPIONATE 70830270239 No Longer Active Gab Padron MD Active TRILEPTAL 600 MG TABS Take one 1 tablet in Am and 1 tablet at night OXCARBAZEPINE 14799903434 Active Gab Padron MD Active CEFDINIR 300 MG CAPS 1 po BID x 10 days CEFDINIR 65761438432 No Longer Active Rodrigo Sarah APRN Active CEFTIN 500 MG TAB 1 twice a day CEFUROXIME AXETIL 71552283353 No Longer Active Gab Padron MD Active AZITHROMYCIN 250 MG TABS 2 po qd x 1 day, then 1 po qd x 4 days AZITHROMYCIN 60896776290 No Longer Active Rodrigo Sarah APRN Active OXYCODONE HCL 5 MG ORAL CAPS 1 TAB PO Q HS OXYCODONE HCL 81713714991 No Longer Active Rodrigo Sarah APRN Active NIASPAN 500 MG ORAL CR-TABS 1 pill nightly x 1 week, then 2 pills nightly x 1 week, then 3 pills nightly x 1 week, then 4 pills nightly NIACIN (ANTIHYPERLIPIDEMIC) 21740491227 No Longer Active Rodrigo Sarah APRN Active NIACIN 500 MG TABS 1 pill by mouth nightly x 1 week, then 2 pills x 1 week, then 3 pills x 1 week, then 4 pills nightly - take after evening meal, with applesauce or an apple NIACIN 85120712356 No Longer Active Yolande Lindsay MD PhD Active TRIAMCINOLONE ACETONIDE 0.1 % CREA apply bid sparingly to rash TRIAMCINOLONE ACETONIDE 56366100254 Active Yolande Lindsay MD PhD Active FUROSEMIDE 20 MG TAB 1 tablet by mouth daily FUROSEMIDE 72541693154 Active Gab Padron MD Active LISINOPRIL 20 MG ORAL TABS 1 tab by mouth daily LISINOPRIL 81004881395 Active Gab Padron MD Active FUROSEMIDE 20 MG TABS 1 pill by mouth daily, for edema FUROSEMIDE 36253371871 No Longer Active Yolande Lindsay MD PhD Active ATORVASTATIN CALCIUM 10 MG TABS 1 pill by mouth daily, for cholesterol 09/06 ATORVASTATIN CALCIUM 37951317412 Active Gab Padron MD Active CALCIUM 600+D PLUS MINERALS 600-400 MG-UNIT ORAL CHEW 1 tab by mouth daily CALCIUM CARBONATE-VIT D-MIN 24095512360 No Longer Active Yolande Lindsay MD PhD Active CYCLOBENZAPRINE HCL 10 MG TABS 1 tablet by mouth three times daily as needed for muscle spasm/pain CYCLOBENZAPRINE HCL 62529443987 Active Yolande Lindsay MD PhD Active ADULT ASPIRIN EC LOW STRENGTH 81 MG TBEC Take 1 tablet by mouth daily 2014 ASPIRIN 62773321944 No Longer Active Yolande Lindsay MD PhD Active ZOFRAN ODT 4 MG TBDP 1 pill dissolved by mouth every 4 hours if needed for nausea ONDANSETRON 67271212641 No Longer Active Yolande Lindsay MD PhD Active CEFTIN 500 MG TAB 1 twice a day CEFUROXIME AXETIL 70139634219 No Longer Active Yolande Lindsay MD PhD Active ALBUTEROL SULFATE 0.083 % NEBU SOLN one vial per nebulizer every 4-6 hours as needed ALBUTEROL SULFATE 44325872522 No Longer Active Alexis Ordaz MD Active DOXYCYCLINE HYCLATE 100 MG CAP 1 cap by mouth twice daily DOXYCYCLINE HYCLATE 09526647690 No Longer Active Yolande Lindsay MD PhD Active CYCLOBENZAPRINE HCL 10 MG TABS 1/2 - 1 tab by mouth three times daily if needed for spasms/pain CYCLOBENZAPRINE HCL 46493572736 No Longer Active Yolande Lindsay MD PhD Active AZITHROMYCIN 250 MG TABS 2 pills on day 1, then 1 pill daily x 4 days AZITHROMYCIN 51350909270 No Longer Active Yolande Lindsay MD PhD Active XOPENEX 1.25 MG/3ML NEBU 1 neb every 4 hours if needed for cough/congestion LEVALBUTEROL HCL 68269449392 No Longer Active Yolande Lindsay MD PhD Active DOXYCYCLINE HYCLATE 100 MG TAB 1 tab twice a day for 14 days 2013 DOXYCYCLINE HYCLATE 47939646016 No Longer Active Yolande Lindsay MD PhD Active PREVACID 30 MG CPDR Take 1 tablet by mouth daily-PRN LANSOPRAZOLE 82672315464 No Longer Active Yolande Lindsay MD PhD Active PA VITAMIN D-3 2000 UNIT CAPS 1 CAP PO DAILY CHOLECALCIFEROL 78513650264 No Longer Active Yolande Lindsay MD PhD Active CEFDINIR 300 MG CAPS by mouth twice a day CEFDINIR 55761103756 No Longer Active Gab Padron MD Active TOPAMAX 50 MG TABS 1 PO twice daily TOPIRAMATE 98711826862 Active Yolande Lindsay MD PhD Active AZITHROMYCIN 250 MG TABS 2 po qd x 1 day, then 1 po qd x 4 days AZITHROMYCIN 12025135487 No Longer Active Yolande Lindsay MD PhD Active DICLOFENAC SODIUM 75 MG TBEC 1 tablet by q 12 hours PRN headaches DICLOFENAC SODIUM 07913166892 No Longer Active Yolande Lindsay MD PhD Active FLONASE 50 MCG/ACT SUSP 1 spray each nostril am and hs FLUTICASONE PROPIONATE 22440773674 No Longer Active Todd Callaway MD Active ANUSOL-HC 25 MG SUPPOSITORY 1 rectally twice a day as needed for hemorrhoids HYDROCORTISONE JAYDEN (RECTAL) 16157791474 No Longer Active Yolande Lindsay MD PhD Active ANUSOL-HC 25 MG SUPPOSITORY 1 suppository rectally each evening as needed for anal fissure HYDROCORTISONE JAYDEN (RECTAL) 34915097921 No Longer Active LONNIE Iglesias Active VALIUM 5 MG TAB 1 po 30 minutes prior to your MRI DIAZEPAM 60985244870 No Longer Active LONNIE Iglesias Active METHOCARBAMOL 750 MG TABS 1 PO QID PRN METHOCARBAMOL 25329273338 No Longer Active Daphne Wetzel APRN Active NITROSTAT 0.4 MG SUBL as directed NITROGLYCERIN 92786623349 No Longer Active Rodrigo Sarah APRN Active ROBAXIN-750 750 MG TABS 2 four times a day for 3 days as needed for muscle spasm, then 1 four times a day as needed METHOCARBAMOL 90194878509 No Longer Active Rodrigo Sarah APRN Active HYDROCODONE-ACETAMINOPHEN 5-325 MG TABS 1 q 4-6 hrs prn HYDROCODONE-ACETAMINOPHEN 24977884600 No Longer Active Rodrigo Sarah MEDICAL PHYSICS PROFESSOR Active VERAPAMIL HCL CR 180 MG CR-TABS TAKE 1 TAB DAILY VERAPAMIL HCL 40985099190 No Longer Active Yolande Lindsay MD PhD Active BACTRIM DS 800-160 MG TAB 1 tab by mouth twice daily TRIMETHOPRIM-SULFAMETHOXAZOLE 57278470072 No Longer Active Yolande Lindsay MD PhD Active NEXIUM 40 MG PACK 1 by mouth daily ESOMEPRAZOLE MAGNESIUM 35476794645 No Longer Active Des Hines MD Active EPIPEN 2-CHARLETTE 0.3 MG/0.3ML OMARI as need for allergic reaction EPINEPHRINE 29172425907 Active Yolande Lindsay MD PhD Active NEXIUM 40 MG CPDR 1 PO Q D DAY ESOMEPRAZOLE MAGNESIUM 61691461459 No Longer Active Sadia Perry RN Active NEXIUM 40 MG PACK 1 by mouth daily NEXIUM 40 MG PACK ESOMEPRAZOLE MAGNESIUM Inactive VERAPAMIL HCL CR 180 MG CR-TABS TAKE 1 TAB DAILY VERAPAMIL HCL CR 180 MG CR-TABS VERAPAMIL HCL Inactive HYDROCODONE-ACETAMINOPHEN 5-325 MG TABS 1 q 4-6 hrs prn HYDROCODONE-ACETAMINOPHEN 5-325 MG TABS 424614 HYDROCODONE-ACETAMINOPHEN Inactive ROBAXIN-750 750 MG TABS 2 four times a day for 3 days as needed for muscle spasm, then 1 four times a day as needed ROBAXIN-750 750 MG TABS 894954 METHOCARBAMOL Inactive NITROSTAT 0.4 MG SUBL as directed NITROSTAT 0.4 MG SUBL 118716 NITROGLYCERIN Inactive METHOCARBAMOL 750 MG TABS 1 PO QID PRN METHOCARBAMOL 750 MG TABS 859187 METHOCARBAMOL Inactive VALIUM 5 MG TAB 1 po 30 minutes prior to your MRI VALIUM 5 MG TAB 909306 DIAZEPAM Inactive ANUSOL-HC 25 MG SUPPOSITORY 1 suppository rectally each evening as needed for anal fissure ANUSOL-HC 25 MG SUPPOSITORY 7321803 HYDROCORTISONE JAYDEN (RECTAL) Inactive ANUSOL-HC 25 MG SUPPOSITORY 1 rectally twice a day as needed for hemorrhoids ANUSOL-HC 25 MG SUPPOSITORY 9928483 HYDROCORTISONE JAYDEN (RECTAL) Inactive FLONASE 50 MCG/ACT SUSP 1 spray each nostril am and hs FLONASE 50 MCG/ACT SUSP 0467293 FLUTICASONE PROPIONATE Inactive DICLOFENAC SODIUM 75 MG TBEC 1 tablet by q 12 hours PRN headaches DICLOFENAC SODIUM 75 MG TBEC 389462 DICLOFENAC SODIUM Inactive PA VITAMIN D-3 2000 UNIT CAPS 1 CAP PO DAILY PA VITAMIN D-3 2000 UNIT CAPS CHOLECALCIFEROL Inactive PREVACID 30 MG CPDR Take 1 tablet by mouth daily-PRN PREVACID 30 MG CPDR 164946 LANSOPRAZOLE Inactive DOXYCYCLINE HYCLATE 100 MG TAB 1 tab twice a day for 14 days 2013 DOXYCYCLINE HYCLATE 100 MG TAB 0908623 DOXYCYCLINE HYCLATE Inactive XOPENEX 1.25 MG/3ML NEBU 1 neb every 4 hours if needed for cough/congestion XOPENEX 1.25 MG/3ML NEBU 673438 LEVALBUTEROL HCL Inactive CYCLOBENZAPRINE HCL 10 MG TABS 1/2 - 1 tab by mouth three times daily if needed for spasms/pain CYCLOBENZAPRINE HCL 10 MG TABS 781283 CYCLOBENZAPRINE HCL Inactive ALBUTEROL SULFATE 0.083 % NEBU SOLN one vial per nebulizer every 4-6 hours as needed ALBUTEROL SULFATE 0.083 % NEBU SOLN 374312 ALBUTEROL SULFATE Inactive CEFTIN 500 MG TAB 1 twice a day CEFTIN 500 MG TAB 075427 CEFUROXIME AXETIL Inactive ZOFRAN ODT 4 MG TBDP 1 pill dissolved by mouth every 4 hours if needed for nausea ZOFRAN ODT 4 MG TBDP 249058 ONDANSETRON Inactive ADULT ASPIRIN EC LOW STRENGTH 81 MG TBEC Take 1 tablet by mouth daily 2014 ADULT ASPIRIN EC LOW STRENGTH 81 MG TBEC 394119 ASPIRIN Inactive CALCIUM 600+D PLUS MINERALS 600-400 [...] or an apple NIACIN 500 MG TABS 197705 NIACIN Inactive NIASPAN 500 MG ORAL CR-TABS 1 pill nightly x 1 week, then 2 pills nightly x 1 week, then 3 pills nightly x 1 week, then 4 pills nightly NIASPAN 500 MG ORAL CR-TABS NIACIN (ANTIHYPERLIPIDEMIC) Inactive OXYCODONE HCL 5 MG ORAL CAPS 1 TAB PO Q HS OXYCODONE HCL 5 MG ORAL CAPS 1235402 OXYCODONE HCL Inactive FLUTICASONE PROPIONATE 50 MCG/ACT SUSP 1 to 2 sprays each nostril daily 04/21 FLUTICASONE PROPIONATE 50 MCG/ACT SUSP 5603271 FLUTICASONE PROPIONATE Inactive POLYTRIM 84520-9.1 UNIT/ML-% SOLN 1 gtt to affected eye q3h x 7 days POLYTRIM 92436-7.1 UNIT/ML-% SOLN 882211 POLYMYXIN B- TRIMETHOPRIM Inactive CHERATUSSIN AC 100-10 MG/5ML SYRP 1 tsp by mouth every 4 hours as needed for cough CHERATUSSIN AC 100-10 MG/5ML SYRP 350027 GUAIFENESIN-CODEINE Inactive LEVOTHYROXINE SODIUM 75 MCG TABS Take 1 tab daily LEVOTHYROXINE SODIUM 75 MCG TABS 939519 LEVOTHYROXINE SODIUM Inactive CLARITIN 10 MG TAB 1 tablet by mouth daily as needed for allergies CLARITIN 10 MG TAB 143106 LORATADINE Inactive FISH OIL 1000 MG CAPS 3 pills daily FISH OIL 1000 MG CAPS OMEGA-3 FATTY ACIDS Inactive ONDANSETRON 4 MG TBDP 1 q4h PRN nausea ONDANSETRON 4 MG TBDP 909869 ONDANSETRON Inactive ADVAIR DISKUS 250-50 MCG/DOSE AEPB 1 puff BID ADVAIR DISKUS 250-50 MCG/DOSE AEPB FLUTICASONE-SALMETEROL Inactive BACTRIM DS 800-160 MG TAB 1 tab by mouth twice daily BACTRIM DS 800-160 MG TAB 960488 TRIMETHOPRIM-SULFAMETHOXAZOLE Inactive AZITHROMYCIN 250 MG TABS 2 po qd x 1 day, then 1 po qd x 4 days AZITHROMYCIN 250 MG TABS 3278206 AZITHROMYCIN Inactive CEFDINIR 300 MG CAPS by mouth twice a day CEFDINIR 300 MG CAPS 630960 CEFDINIR Inactive AZITHROMYCIN 250 MG TABS 2 pills on day 1, then 1 pill daily x 4 days AZITHROMYCIN 250 MG TABS 0624571 AZITHROMYCIN Inactive DOXYCYCLINE HYCLATE 100 MG CAP 1 cap by mouth twice daily DOXYCYCLINE HYCLATE 100 MG CAP 2925432 DOXYCYCLINE HYCLATE Inactive FUROSEMIDE 20 MG TABS 1 pill by mouth daily, for edema FUROSEMIDE 20 MG TABS 998120 FUROSEMIDE Inactive AZITHROMYCIN 250 MG TABS 2 po qd x 1 day, then 1 po qd x 4 days AZITHROMYCIN 250 MG TABS 9047787 AZITHROMYCIN Inactive CEFTIN 500 MG TAB 1 twice a day CEFTIN 500 MG TAB 629407 CEFUROXIME AXETIL Inactive CEFDINIR 300 MG CAPS 1 po BID x 10 days CEFDINIR 300 MG CAPS 327563 CEFDINIR Inactive BACTRIM DS 800-160 MG TAB 1 tab by mouth twice daily BACTRIM DS 800-160 MG TAB 318388 TRIMETHOPRIM-SULFAMETHOXAZOLE Inactive PREDNISONE 20 MG TAB 2 tabs daily for 3 days, 1 tab daily for 3 days, 1/2 tab daily for 2 days PREDNISONE 20 MG TAB 567062 PREDNISONE Inactive PREDNISONE 20 MG TAB take 3 tabs daily for 3 days, 2 tabs daily for 3 days, 1 tab daily for 3 days, 1/2 tab daily for 3 days PREDNISONE 20 MG TAB 863793 PREDNISONE Inactive Immunizations Vaccine Administration Date Value Standard Description Seasonal influenza vaccine, injectable, containing preservative, for > 3 years old (Afluria, FluLaval, Fluzone, Fluvirin, Fluarix, Agriflu(>=18 yo)) Fluzone (>3 yrs.) [WND559] Influenza, seasonal, injectable influenza immunization (Flu Vax) has been administered Influenza - Unspecified Formulation [CVX88] influenza virus vaccine, unspecified formulation pneumococcal immunization administered Pneumovax 23 [CVX33] pneumococcal polysaccharide vaccine, 23 valent Seasonal influenza vaccine, injectable, containing preservative, for > 3 years old (Afluria, FluLaval, Fluzone, Fluvirin, Fluarix, Agriflu(>=18 yo)) Fluzone (>3 yrs.) [AYV865] Influenza, seasonal, injectable dT (Diphtheria and Tetanus) booster given given Td(adult) unspecified formulation Boostrix (Tetanus toxoid, reduced diphtheria toxoid and acellular pertussis vaccine, adsorbed), booster Boostrix [ZCM351] tetanus toxoid, reduced diphtheria toxoid, and acellular [...] PANEL - Chemistry cholesterol, serum 166 mg/dL [phone]/12/06 triglyceride, serum, fasting 86 mg/dL 30-200 HDL [...] Negative mg/dL Negative sodium, serum 142 mmol/L 783-223 4061/07/18 carbon dioxide, venous blood 27.8 mmol/L 21.0-32.0 [...] negative Encounters Code Encounter Date Provider Facility CPT-20625 Level 3 Est. Patient 14:46:09 CDT Tisha Lambert APRN [facility] CPT-17629 Level 4 New Patient 16:13:15 CDT Todd Callaway MD [facility] CPT-98536 Level 4 Est. Patient 13:18:33 CDT Gab Padron MD [facility] CPT-25152 Level 3 Est. Patient 15:20:50 CDT Jared Og MD [facility] CPT-02476 Level 3 Est. Patient 17:43:55 CAN PATCHER Gab Padron MD [facility] CPT-31699 Level 3 Est. Patient 17:07:49 CAN PATCHER Jared Og MD [facility] CPT-19083 Level 4 Est. Patient 19:55:18 CAN PATCHER Jared Og MD [facility] CPT-16639 Level 3 Est. Patient 20:13:34 CAN PATCHER Jared Og MD [facility] CPT-81356 Level 4 Est. Patient 16:31:27 CDT Gab Padron MD [facility] CPT-74675 Level 2 Est. Patient 12:23:38 CDT Jared Og MD [facility] CPT-75113 Level 3 Est. Patient 11:01:51 CDT Gab Padron MD [facility] CPT-83755 Level 3 Est. Patient 15:27:02 CDT Jared Og MD [facility] [place] CPT-47396 Level 4 Est. Patient 09:25:27 CDT Gab Padron MD [facility] CPT-37265 Level 3 Est. Patient 10:29:41 CDT Rodrigo Sarah [facility] CPT-79049 Level 4 Est. Patient 17:51:05 CDT Gab Padron MD [facility] CPT-18061 Level 3 Est. Patient 14:18:08 CDT Gab Padron MD [facility] CPT-13723 Level 4 Est. Patient 10:18:54 CDT Gab Padron MD [facility] CPT-18333 Level 3 Est. Patient 11:30:07 CDT Rodrigo Sarah [facility] CPT-85062 Level 4 Est. Patient 21:02:30 CAN PATCHER Gab Padron MD [facility] CPT-36195 Level 3 Est. Patient 11:02:19 CAN PATCHER Gba Padron MD [facility]-68935 Level 4 Est. Patient 22:24:31 CAN PATCHER Gab Padron MD [facility] CPT-74366 Level 3 Est. Patient 18:33:46 CAN PATCHER Gab Pardon MD [facility]-66319 Level 3 Est. Patient 16:19:11 CDT Yolande Lindsay MD [facility]-69669 Level 3 Est. Patient 18:59:14 CDT Yolande Lindsay MD [facility]-94468 Level 4 Est. Patient 21:29:26 CDT Yolande Lindsay MD [facility]-37112 Level 3 Est. Patient 07:37:45 CDT Yolande Lindsay MD [facility]-46012 Level 3 Est. Patient 17:03:46 CDT Yolande Lindsay MD [facility]-57517 Level 4 Est. Patient 20:02:13 CAN PATCHER Yolande Lindsay MD [facility] CPT-42971 Level 3 Est. Patient 16:02:07 CAN PATCHER Alexis Ordaz MD [facility]-36294 Level 3 Est. Patient 12:41:24 CAN PATCHER Yolande Lindsay MD [facility] CPT-15005 Level 3 Est. Patient 15:41:20 CAN PATCHER Yolande Lindsay MD [facility]-15511 Level 3 Est. Patient 13:20:02 CAN PATCHER Yolande Lindsay MD [facility] CPT-59300 Level 3 Est. Patient 15:00:38 CDT Jared Og MD [facility]-96369 Level 3 Est. Patient 10:22:32 CDT Yolande Lindsay MD [facility]-16333 Level 3 Est. Patient 17:12:58 CDT Yolande Lindsay MD [facility]-99948 Level 4 Est. Patient 13:30:58 CDT Yolande Lindsay MD [facility]-35577 Level 4 New Patient 09:02:42 CDT Jared Og MD [facility]-43837 Level 3 Est. Patient 08:19:07 CDT Yolande Lindsay MD [facility]-80636 Level 3 Est. Patient 12:00:13 CAN PATCHER Gab Padron MD [facility]-94718 Level 3 Est. Patient 16:15:23 CAN PATCHER Yolande Lindsay MD [facility]-57090 Level 2 Est. Patient 19:47:15 CDT Yolande Lindsay MD [facility]-07744 Level 3 Est. Patient 21:38:31 CDT Yolande Lindsay MD [facility]-66853 Level 3 Est. Patient 10:25:12 CDT Adiel PERAZA [facility]-40788 Level 4 Est. Patient 10:51:58 CDT Yolande Lindsay MD [facility]-62707 Level 3 Est. Patient 14:04:55 CAN PATCHER Rodrigo Sarah [facility][note 2]-46560 Level 3 Est. Patient 10:46:35 CAN PATCHER Rodrigo Sarah [facility][note 2]-81553 Level 3 Est. Patient 14:24:37 CAN PATCHER Yolande Lindsay MD [facility]-61835 Level 3 Est. Patient 17:41:58 CAN PATCHER Yolande Lindsay MD PhD [facility] CPT-36340 Level 2 Est. Patient 22:01:41 CAN PATCHER Rodrigo Sarah [facility] CPT-24000 Level 2 Est. Patient 22:01:11 CAN PATCHER Rodrigo Sarah [facility] CPT-30369 Level 3 Est. Patient 10:12:29 CAN PATCHER Rodrigo Sarah [facility] CPT-85562 Level 3 Est. Patient 11:05:44 CDT Alexis Ordaz MD [facility] CPT-35778 Level 3 Est. Patient 14:57:20 CDT Yolande Lindsay MD [facility]-43747 Level 3 Est. Patient 14:40:57 CDT Yolande Lindsay MD [facility]-93879 Level 3 Est. Patient 20:55:40 CDT Yolande Lindsay MD [facility] CPT-41971 Level 3 Est. Patient 12:42:38 CAN PATCHER Yolande Lindsay MD [facility]-89518 Level 3 Est. Patient 11:54:49 CAN PATCHER Des Hines MD [facility] CPT-97065 Level 3 Est. Patient 17:06:38 CDT Dewayne PERAZA [facility] Procedures Code Procedure Name Date Entry Date Standard Description CPT-J2930 Solu Medrol 125 mg (Methyl Prednisolone Sodium Succinate) 13:19:02 CDT CPT-27723 Abx/Therapy Injection 13:19:02 CDT CPT-J2930 Solu Medrol 125 mg (Methyl Prednisolone Sodium Succinate) 13:05:03 CDT CPT-89730 Hip, complete, 2-3 views - XRAY USE ONLY 17:19:04 CAN PATCHER CPT-15561 Venipuncture Draw Fee 08:37:59 CAN PATCHER CPT-65116 Liver Profile - LAB USE ONLY 08:37:59 CAN PATCHER CPT-53324 Lipid - LAB USE ONLY 08:37:58 CAN PATCHER CPT-37413 First Vx - Ix admin via ID IM or jet injects without counseling by physician 11:52:31 CDT CPT-50454 Fluzone Preservative Free Intramuscular Suspension 11:52 :31 CDT CPT-67211 Foot, left, comp min 3V - XRAY USE ONLY 09:24:54 CDT CPT-09294 Abd single AP View - XRAY USE ONLY 11:16:17 CDT CPT-01589 T spine AP/ Lat - XRAY USE ONLY 09:34:21 CDT CPT-83212 Chest 2V Frontal and Lat - XRAY USE ONLY 10:48:51 CDT CPT-52110 LS spine comp w obliq 13:28:00 CAN PATCHER CPT-J1040 Depo Medrol 80 mg (Methyl Prednisolone Acetate) 10:51: 28 CAN PATCHER CPT-J1100 Decadron 8mg (Dexamethasone) 10:51:28 CAN PATCHER CPT-38635 Abx/Therapy Injection 10:51:28 CAN PATCHER CPT-J1100 Decadron 8mg (Dexamethasone) 21:02:30 CAN PATCHER CPT-J1040 Depo Medrol 80 mg (Methyl Prednisolone Acetate) 21:02: 30 CAN PATCHER [id number] Event Monitor - MC Transmission 09:12:32 CDT 08/06 [id number] Event Monitor - MC review and interp 09:12:32 CDT [id number] Event Monitor - MC recording 09:12:32 CDT CPT-58972 EKG Trac and Interp 16:50:22 CDT CPT-J1030 Depo Medrol 40 mg (Methyl Prednisolone Acetate) 17:05: 54 CDT CPT-J1100 Decadron 4mg (Dexamethasone) 17:05:54 CDT CPT-27143 Abx/Therapy Injection 17:05:54 CDT CPT-J1100 Decadron 4mg (Dexamethasone) 16:55:28 CDT CPT-J1030 Depo Medrol 40 mg (Methyl Prednisolone Acetate) 16:55: 28 CDT CPT-54588 Ankle Complete - Min 3V 15:58:50 CDT CPT-72322 Knee 3V 15:58:50 CDT CPT-68964 Hip comp min 2V 15:58:50 CDT CPT-J2270 Morphine Sulfate 10 mg 14:25:44 CAN PATCHER CPT-J2550 Phenergan 12.5 mg (Promethazine) 14:25:44 CAN PATCHER CPT-71284 Abx/Therapy Injection 14:25:44 CAN PATCHER CPT-J2550 Phenergan 12.5 mg (Promethazine) 14:08:03 CAN PATCHER CPT-J2270 Morphine Sulfate 10 mg 14:08:03 CAN PATCHER CPT-52238 Bladder Scan 15:00:38 CDT CPT-TCMM Transitional Care Mgmt-Moderate 09:52:22 CDT CPT-J1030 Depo Medrol 40 mg (Methyl Prednisolone Acetate) 10:55: 18 CDT CPT-J1100 Decadron 4mg (Dexamethasone) 10:55:18 CDT CPT-53156 Abx/Therapy Injection 10:55:18 CDT CPT-J1030 Depo Medrol 40 mg (Methyl Prednisolone Acetate) 10:22: 32 CDT CPT-J1100 Decadron 4mg (Dexamethasone) 10:22:32 CDT CPT-57041 Postop F/U Visit 14:37:13 CDT CPT-16640 Ankle Complete - Min 3V 17:11:58 CDT CPT-43690 Foot comp min 3V 17:11:58 CDT CPT-07012 Bladder Scan 09:56:58 CDT CPT-98710 Postop F/U Visit 09:56:58 CDT CPT-07978 Cystoscopy 09:02:42 CDT CPT-28487 Bladder Scan 09:02:42 CDT CPT-56035 Abd single AP View 16:00:35 CDT CPT-86132 Administration single or combination vaccine inc oral 10 :15:43 CDT CPT-09055 Influenza split virus > age 3 10:15:43 CDT CPT-15999 Nail Avulsion 09:24:57 CDT CPT-OV Office Visit 11:15:41 CDT CPT-04497 Abx/Therapy Injection 10:51:30 CDT CPT-J3301 Kenalog 40 mg (Triamcinolone Acetonide) 10:25:12 CDT CPT-J1100 Decadron 4mg (Dexamethasone) 10:25:12 CDT CPT-21667 Anoscopy diagnostic 10:36:12 CDT CPT-OV Office Visit 15:34:31 CDT CPT-51606 Abx/Therapy Injection 08:21:15 CAN PATCHER CPT-J1885 Toradol 60 mg (Ketorolac) 10:46:35 CAN PATCHER CPT-OV Office Visit 19:51:16 CAN PATCHER CPT-34892 Spec Collection and Handling Fee 14:34:18 CAN PATCHER CPT-PV Prev. Care Visit 14:19:18 CAN PATCHER CPT-72030 Postop F/U Visit 14:47:51 CAN PATCHER CPT-01137 Postop F/U Visit 15:15:14 CAN PATCHER CPT-44977 Postop F/U Visit 14:41:43 CDT CPT-17984 Postop F/U Visit 15:47:46 CDT CPT-OV Office Visit 15:27:23 CDT CPT-OV Office Visit 17:20:34 CDT CPT-33732 Abx/Therapy Injection 15:05:57 CDT CPT-J1100 Decadron 8mg (Dexamethasone) 14:44:57 CDT CPT-J1040 Depo Medrol 80 mg (Methyl Prednisolone Acetate) 14:44: 57 CDT CPT-JTINJ Joint Injection 10:17:37 CDT CPT-96308 Administration 2+ single or combination vaccines inc oral 13:01:46 CAN PATCHER CPT-29976 Administration single or combination vaccine inc oral 13 :01:46 CAN PATCHER CPT-07557 Pneumovax 13:01:46 CAN PATCHER CPT-86751 Influenza split virus > age 3 13:01:46 CAN PATCHER CPT-12008 Administration single or combination vaccine inc oral 08 :56:49 CDT CPT-50574 Tdap 08:56:49 CDT
--- OUTSIDE RECORDS SUMMARY | 2017-03-22 03:04 | XMS REPORT | Clinical Summary ---
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 Jillina Frazellilian ZAPATAN 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 Anemia 285.9 Active Gab Padron MD Anemia, unspecified Conjunctivitis 372.30 Active Jillnacho Sarah APRN Conjunctivitis, unspecified Sinusitis 473.9 Active Jillina Frazell CRECHE ATTENDANT Unspecified sinusitis (chronic) Nonspecific syndrome suggestive of viral illness 079.99 Active Jillina Siml CRECHE ATTENDANT Unspecified viral infection Laryngitis 464.00 Active Jillina Farshadzell CRECHE ATTENDANT Acute laryngitis without mention of obstruction Abdominal [...] Abdominal pain, generalized 789.07 Active Silvestrellina Siml CRECHE ATTENDANT Abdominal pain, generalized Back pain, thoracic region, left 724.1 Active Jillina Farshadzell CRECHE ATTENDANT Pain in thoracic spine Abdominal pain, left [...] PhD Knee sprain, left ICD-844.9 Inactive Yolande Lindasy MD PhD Ankle sprain, left ICD-845.00 Inactive Yolande Lindsay MD PhD Hip pain, left ICD-719.45 Inactive Yolande Lindsay MD PhD Medication List Medication Instructions Start Date Stop Date Generic Name NDC Status Provider Patient Instruction TRAMADOL HCL 50 MG TABS 1 tab po every 6 hrs prn pain TRAMADOL HCL 21472690205 Active Gab Padron MD Active PREDNISONE 20 MG TAB 2 tabs daily for 3 days, 1 tab daily for 3 days, 1/2 tab daily for 2 days PREDNISONE 29643942938 No Longer Active Gab Padron MD Active ZOFRAN ODT 4 MG TBDP 1 po q6hr PRN Nausea ONDANSETRON 60324234856 Active Gab Padron MD Active IBUPROFEN 600 MG TAB 1 tablet by mouth every 6 hours for 7 days, then 1 tablet every 6 hours as needed. Take with food IBUPROFEN 74139807155 Active Jillina Frazell CRECHE ATTENDANT Active BACTRIM DS 800-160 MG TAB 1 tab by mouth twice daily TRIMETHOPRIM-SULFAMETHOXAZOLE 26409882165 No Longer Active Gab Padron MD Active ADVAIR DISKUS 250-50 MCG/DOSE AEPB 1 puff BID FLUTICASONE- SALMETEROL 11685570271 Active Jillnacho Sarah CRECHE ATTENDANT Active LEVOTHYROXINE SODIUM 75 MCG TABS Take 1 tab daily LEVOTHYROXINE SODIUM 64964679306 No Longer Active Mariana Cuadra [facility] Active SYNTHROID 88 MCG ORAL TABS Take one by mouth daily LEVOTHYROXINE SODIUM 81308883777 Active Gab Padron MD Active CHERATUSSIN AC 100-10 MG/5ML SYRP 1 tsp by mouth every 4 hours as needed for cough GUAIFENESIN-CODEINE 36814106027 No Longer Active Gab Padron MD Active POLYTRIM 59599-7.1 UNIT/ML-% SOLN 1 gtt to affected eye q3h x 7 days POLYMYXIN B-TRIMETHOPRIM 50436078900 No Longer Active Gab Padron MD Active FLUTICASONE PROPIONATE 50 MCG/ACT SUSP 1 to 2 sprays each nostril daily 04/21 FLUTICASONE PROPIONATE 93763322447 No Longer Active Gab Padron MD Active TRILEPTAL 600 MG TABS Take one 1 tablet in Am and 1 tablet at night OXCARBAZEPINE 07332420035 Active Gab Padron MD Active CEFDINIR 300 MG CAPS 1 po BID x 10 days CEFDINIR 71216007309 No Longer Active Rodrigo Sarah APRN Active CEFTIN 500 MG TAB 1 twice a day CEFUROXIME AXETIL 69838627562 No Longer Active Gab Padron MD Active AZITHROMYCIN 250 MG TABS 2 po qd x 1 day, then 1 po qd x 4 days AZITHROMYCIN 64287871788 No Longer Active Rodrigo Sarah APRN Active CLARITIN 10 MG TAB 1 tablet by mouth daily as needed for allergies LORATADINE 05429251486 Active Rodrigo Sarah APRN Active OXYCODONE HCL 5 MG ORAL CAPS 1 TAB PO Q HS OXYCODONE HCL 64525595966 No Longer Active Rodrigo Sarah APRN Active NIASPAN 500 MG ORAL CR-TABS 1 pill nightly x 1 week, then 2 pills nightly x 1 week, then 3 pills nightly x 1 week, then 4 pills nightly NIACIN (ANTIHYPERLIPIDEMIC) 74199716515 No Longer Active Rodrigo Sarah APRN Active NIACIN 500 MG TABS 1 pill by mouth nightly x 1 week, then 2 pills x 1 week, then 3 pills x 1 week, then 4 pills nightly - take after evening meal, with applesauce or an apple NIACIN 20886751405 No Longer Active Yolande Lindsay MD PhD Active FISH OIL 1000 MG CAPS 3 pills daily OMEGA-3 FATTY ACIDS 34568580419 Active Yolande Lindsay MD PhD Active TRIAMCINOLONE ACETONIDE 0.1 % CREA apply bid sparingly to rash TRIAMCINOLONE ACETONIDE 60118268923 Active Yolande Lindsay MD PhD Active FUROSEMIDE 20 MG TAB 1 tablet by mouth daily FUROSEMIDE 39630740100 Active Tisha Lambert APRN Active LISINOPRIL 20 MG ORAL TABS 1 tab by mouth daily LISINOPRIL 97042530609 Active Tisha Lambert APRN Active FUROSEMIDE 20 MG TABS 1 pill by mouth daily, for edema FUROSEMIDE 41958610084 No Longer Active Yolande Lindsay MD PhD Active ATORVASTATIN CALCIUM 10 MG TABS 1 pill by mouth daily, for cholesterol 09/06 ATORVASTATIN CALCIUM 54448424536 Active Gab Padron MD Active CALCIUM 600+D PLUS MINERALS 600-400 MG-UNIT ORAL CHEW 1 tab by mouth daily CALCIUM CARBONATE-VIT D-MIN 35871566140 No Longer Active Yolande Lindsay MD PhD Active CYCLOBENZAPRINE HCL 10 MG TABS 1 tablet by mouth three times daily as needed for muscle spasm/pain CYCLOBENZAPRINE HCL 56735842365 Active Yolande Lindsay MD PhD Active ONDANSETRON 4 MG TBDP 1 q4h PRN nausea ONDANSETRON 75461333600 Active Yolande Lindsay MD PhD Active ADULT ASPIRIN EC LOW STRENGTH 81 MG TBEC Take 1 tablet by mouth daily 2014 ASPIRIN 18934887624 No Longer Active Yolande Lindsay MD PhD Active ZOFRAN ODT 4 MG TBDP 1 pill dissolved by mouth every 4 hours if needed for nausea ONDANSETRON 63802578809 No Longer Active Yolande Lindsay MD PhD Active CEFTIN 500 MG TAB 1 twice a day CEFUROXIME AXETIL 43107653121 No Longer Active Yolande Lindsay MD PhD Active ALBUTEROL SULFATE 0.083 % NEBU SOLN one vial per nebulizer every 4-6 hours as needed ALBUTEROL SULFATE 32287197276 No Longer Active Alexis Ordaz MD Active DOXYCYCLINE HYCLATE 100 MG CAP 1 cap by mouth twice daily DOXYCYCLINE HYCLATE 14140846969 No Longer Active Yolande Lindsay MD PhD Active CYCLOBENZAPRINE HCL 10 MG TABS 1/2 - 1 tab by mouth three times daily if needed for spasms/pain CYCLOBENZAPRINE HCL 40754304077 No Longer Active Yolande Lindsay MD PhD Active AZITHROMYCIN 250 MG TABS 2 pills on day 1, then 1 pill daily x 4 days AZITHROMYCIN 67765382886 No Longer Active Yolande Lindsay MD PhD Active XOPENEX 1.25 MG/3ML NEBU 1 neb every 4 hours if needed for cough/congestion LEVALBUTEROL HCL 92649347381 No Longer Active Yolande Lindsay MD PhD Active DOXYCYCLINE HYCLATE 100 MG TAB 1 tab twice a day for 14 days 2013 DOXYCYCLINE HYCLATE 79568066947 No Longer Active Yolande Lindsay MD PhD Active PREVACID 30 MG CPDR Take 1 tablet by mouth daily-PRN LANSOPRAZOLE 42830242341 No Longer Active Yolande Lindsay MD PhD Active PA VITAMIN D-3 2000 UNIT CAPS 1 CAP PO DAILY CHOLECALCIFEROL 20400735091 No Longer Active Yolande Lindsay MD PhD Active CEFDINIR 300 MG CAPS by mouth twice a day CEFDINIR 66953280666 No Longer Active Gab Padron MD Active TOPAMAX 50 MG TABS 1 PO twice daily TOPIRAMATE 08078805728 Active Yolande Lindsay MD PhD Active AZITHROMYCIN 250 MG TABS 2 po qd x 1 day, then 1 po qd x 4 days AZITHROMYCIN 84983229834 No Longer Active Yolande Lindsay MD PhD Active DICLOFENAC SODIUM 75 MG TBEC 1 tablet by q 12 hours PRN headaches DICLOFENAC SODIUM 28317278038 No Longer Active Yolande Lindsay MD PhD Active FLONASE 50 MCG/ACT SUSP 1 spray each nostril am and hs FLUTICASONE PROPIONATE 91346789470 No Longer Active Todd Callaway MD Active ANUSOL-HC 25 MG SUPPOSITORY 1 rectally twice a day as needed for hemorrhoids HYDROCORTISONE JAYDEN (RECTAL) 35690509775 No Longer Active Yolande Lindsay MD PhD Active ANUSOL-HC 25 MG SUPPOSITORY 1 suppository rectally each evening as needed for anal fissure HYDROCORTISONE JAYDEN (RECTAL) 77794901129 No Longer Active Bozena Coleman, RMA Active VALIUM 5 MG TAB 1 po 30 minutes prior to your MRI DIAZEPAM 46200918608 No Longer Active Bozena JaredEDELMIRAFeliciano Active METHOCARBAMOL 750 MG TABS 1 PO QID PRN METHOCARBAMOL 27416976193 No Longer Active Daphne Wetzel CRECHE ATTENDANT Active NITROSTAT 0.4 MG SUBL as directed NITROGLYCERIN 35340740004 No Longer Active Rodrigo Sarah CRECHE ATTENDANT Active ROBAXIN-750 750 MG TABS 2 four times a day for 3 days as needed for muscle spasm, then 1 four times a day as needed METHOCARBAMOL 66743771828 No Longer Active Rodrigo Sarah APRN Active HYDROCODONE-ACETAMINOPHEN 5-325 MG TABS 1 q 4-6 hrs prn HYDROCODONE-ACETAMINOPHEN 66206104941 No Longer Active Rodrigo Sraah APRN Active VERAPAMIL HCL CR 180 MG CR-TABS TAKE 1 TAB DAILY VERAPAMIL HCL 55398360055 No Longer Active Yolande Lindsay MD PhD Active BACTRIM DS 800-160 MG TAB 1 tab by mouth twice daily TRIMETHOPRIM-SULFAMETHOXAZOLE 48009143425 No Longer Active Yolande Lindsay MD PhD Active NEXIUM 40 MG PACK 1 by mouth daily ESOMEPRAZOLE MAGNESIUM 10413229264 No Longer Active Des Hines MD Active EPIPEN 2-CHARLETTE 0.3 MG/0.3ML OMARI as need for allergic reaction EPINEPHRINE 79048871150 Active Yolande Lindsay MD PhD Active NEXIUM 40 MG CPDR 1 PO Q D DAY ESOMEPRAZOLE MAGNESIUM 20240162362 No Longer Active Sadia Perry RN Active NEXIUM 40 MG PACK 1 by mouth daily NEXIUM 40 MG PACK ESOMEPRAZOLE MAGNESIUM Inactive VERAPAMIL HCL CR 180 MG CR-TABS TAKE 1 TAB DAILY VERAPAMIL HCL CR 180 MG CR-TABS VERAPAMIL HCL Inactive HYDROCODONE-ACETAMINOPHEN 5-325 MG TABS 1 q 4-6 hrs prn HYDROCODONE-ACETAMINOPHEN 5-325 MG TABS 021167 HYDROCODONE-ACETAMINOPHEN Inactive ROBAXIN-750 750 MG TABS 2 four times a day for 3 days as needed for muscle spasm, then 1 four times a day as needed ROBAXIN-750 750 MG TABS 976557 METHOCARBAMOL Inactive NITROSTAT 0.4 MG SUBL as directed NITROSTAT 0.4 MG SUBL 114205 NITROGLYCERIN Inactive METHOCARBAMOL 750 MG TABS 1 PO QID PRN METHOCARBAMOL 750 MG TABS 513236 METHOCARBAMOL Inactive VALIUM 5 MG TAB 1 po 30 minutes prior to your MRI VALIUM 5 MG TAB 310823 DIAZEPAM Inactive ANUSOL-HC 25 MG SUPPOSITORY 1 suppository rectally each evening as needed for anal fissure ANUSOL-HC 25 MG SUPPOSITORY 7068986 HYDROCORTISONE JAYDEN (RECTAL) Inactive ANUSOL-HC 25 MG SUPPOSITORY 1 rectally twice a day as needed for hemorrhoids ANUSOL-HC 25 MG SUPPOSITORY 3627551 HYDROCORTISONE JAYDEN (RECTAL) Inactive FLONASE 50 MCG/ACT SUSP 1 spray each nostril am and hs FLONASE 50 MCG/ACT SUSP FLUTICASONE PROPIONATE Inactive DICLOFENAC SODIUM 75 MG TBEC 1 tablet by q 12 hours PRN headaches DICLOFENAC SODIUM 75 MG TBEC 108150 DICLOFENAC SODIUM Inactive PA VITAMIN D-3 2000 UNIT CAPS 1 CAP PO DAILY PA VITAMIN D-3 2000 UNIT CAPS CHOLECALCIFEROL Inactive PREVACID 30 MG CPDR Take 1 tablet by mouth daily-PRN PREVACID 30 MG CPDR 570598 LANSOPRAZOLE Inactive DOXYCYCLINE HYCLATE 100 MG TAB 1 tab twice a day for 14 days 2013 DOXYCYCLINE HYCLATE 100 MG TAB 9194678 DOXYCYCLINE HYCLATE Inactive XOPENEX 1.25 MG/3ML NEBU 1 neb every 4 hours if needed for cough/congestion XOPENEX 1.25 MG/3ML NEBU 701257 LEVALBUTEROL HCL Inactive CYCLOBENZAPRINE HCL 10 MG TABS 1/2 - 1 tab by mouth three times daily if needed for spasms/pain CYCLOBENZAPRINE HCL 10 MG TABS 158828 CYCLOBENZAPRINE HCL Inactive ALBUTEROL SULFATE 0.083 % NEBU SOLN one vial per nebulizer every 4-6 hours as needed ALBUTEROL SULFATE 0.083 % NEBU SOLN 607121 ALBUTEROL SULFATE Inactive CEFTIN 500 MG TAB 1 twice a day CEFTIN 500 MG TAB 223163 CEFUROXIME AXETIL Inactive ZOFRAN ODT 4 MG TBDP 1 pill dissolved by mouth every 4 hours if needed for nausea ZOFRAN ODT 4 MG TBDP 095316 ONDANSETRON Inactive ADULT ASPIRIN EC LOW STRENGTH 81 MG TBEC Take 1 tablet by mouth daily 2014 ADULT ASPIRIN EC LOW STRENGTH 81 MG TBEC 592422 ASPIRIN Inactive CALCIUM 600+D PLUS MINERALS 600-400 [...] or an apple NIACIN 500 MG TABS 097284 NIACIN Inactive NIASPAN 500 MG ORAL CR-TABS 1 pill nightly x 1 week, then 2 pills nightly x 1 week, then 3 pills nightly x 1 week, then 4 pills nightly NIASPAN 500 MG ORAL CR-TABS NIACIN (ANTIHYPERLIPIDEMIC) Inactive OXYCODONE HCL 5 MG ORAL CAPS 1 TAB PO Q HS OXYCODONE HCL 5 MG ORAL CAPS 9579417 OXYCODONE HCL Inactive FLUTICASONE PROPIONATE 50 MCG/ACT SUSP 1 to 2 sprays each nostril daily 04/21 FLUTICASONE PROPIONATE 50 MCG/ACT SUSP 1350867 FLUTICASONE PROPIONATE Inactive POLYTRIM 78364-7.1 UNIT/ML-% SOLN 1 gtt to affected eye q3h x 7 days POLYTRIM 23995-2.1 UNIT/ML-% SOLN 236689 POLYMYXIN B- TRIMETHOPRIM Inactive CHERATUSSIN AC 100-10 MG/5ML SYRP 1 tsp by mouth every 4 hours as needed for cough CHERATUSSIN AC 100-10 MG/5ML SYRP 714397 GUAIFENESIN-CODEINE Inactive LEVOTHYROXINE SODIUM 75 MCG TABS Take 1 tab daily LEVOTHYROXINE SODIUM 75 MCG TABS 479146 LEVOTHYROXINE SODIUM Inactive BACTRIM DS 800-160 MG TAB 1 tab by mouth twice daily BACTRIM DS 800-160 MG TAB 607786 TRIMETHOPRIM-SULFAMETHOXAZOLE Inactive AZITHROMYCIN 250 MG TABS 2 po qd x 1 day, then 1 po qd x 4 days AZITHROMYCIN 250 MG TABS 1636463 AZITHROMYCIN Inactive CEFDINIR 300 MG CAPS by mouth twice a day CEFDINIR 300 MG CAPS 269619 CEFDINIR Inactive AZITHROMYCIN 250 MG TABS 2 pills on day 1, then 1 pill daily x 4 days AZITHROMYCIN 250 MG TABS 2131744 AZITHROMYCIN Inactive DOXYCYCLINE HYCLATE 100 MG CAP 1 cap by mouth twice daily DOXYCYCLINE HYCLATE 100 MG CAP 2562104 DOXYCYCLINE HYCLATE Inactive FUROSEMIDE 20 MG TABS 1 pill by mouth daily, for edema FUROSEMIDE 20 MG TABS 484231 FUROSEMIDE Inactive AZITHROMYCIN 250 MG TABS 2 po qd x 1 day, then 1 po qd x 4 days AZITHROMYCIN 250 MG TABS 9221755 AZITHROMYCIN Inactive CEFTIN 500 MG TAB 1 twice a day CEFTIN 500 MG TAB 399445 CEFUROXIME AXETIL Inactive CEFDINIR 300 MG CAPS 1 po BID x 10 days CEFDINIR 300 MG CAPS 850266 CEFDINIR Inactive BACTRIM DS 800-160 MG TAB 1 tab by mouth twice daily BACTRIM DS 800-160 MG TAB 531264 TRIMETHOPRIM-SULFAMETHOXAZOLE Inactive PREDNISONE 20 MG TAB 2 tabs daily for 3 days, 1 tab daily for 3 days, 1/2 tab daily for 2 days PREDNISONE 20 MG TAB 686387 PREDNISONE Inactive Immunizations Vaccine Administration Date Value Standard Description Seasonal influenza vaccine, injectable, containing preservative, for > 3 years old (Afluria, FluLaval, Fluzone, Fluvirin, Fluarix, Agriflu(>=18 yo)) Fluzone (>3 yrs.) [WGL100] Influenza, seasonal, injectable influenza immunization (Flu Vax) has been administered Influenza - Unspecified Formulation [CVX88] influenza virus vaccine, unspecified formulation Seasonal influenza vaccine, injectable, containing preservative, for > 3 years old (Afluria, FluLaval, Fluzone, Fluvirin, Fluarix, Agriflu(>=18 yo)) Fluzone (>3 yrs.) [CXG218] Influenza, seasonal, injectable pneumococcal immunization administered Pneumovax 23 [CVX33] pneumococcal polysaccharide vaccine, 23 valent dT (Diphtheria and Tetanus) booster given given Td(adult) unspecified formulation Boostrix (Tetanus toxoid, reduced diphtheria toxoid and acellular pertussis vaccine, adsorbed), booster Boostrix [FDK272] tetanus toxoid, reduced diphtheria toxoid, and acellular [...] Panel - Chemistry sodium, serum 142 mmol/L 972-778 8295/06/30 potassium, serum 4.4 mmol/L 3.5-5.2 chloride, serum [...] Rate - Chemistry sodium, serum 139 mmol/L 855-210 5417/03/24 carbon dioxide, venous blood 22.4 mmol/L 21.0-32.0 [...] ... - Chemistry sodium, serum 143 mmol/L 356-484 1592/05/02 carbon dioxide, venous blood 25.6 mmol/L [...] PANEL - Chemistry cholesterol, serum 166 mg/dL 507-857 0256/12/06 triglyceride, serum, fasting 86 mg/dL 30-200 HDL [...] Negative mg/dL Negative sodium, serum 142 mmol/L 179-338 1358/07/18 carbon dioxide, venous blood 27.8 mmol/L 21.0-32.0 [...] negative Encounters Code Encounter Date Provider Facility CPT-66434 Level 3 Est. Patient 17:43:55 SUPPLY CHAIN DIRECTOR Gab Padron MD [facility] CPT-87563 Level 3 Est. Patient 17:07:49 SUPPLY CHAIN DIRECTOR Jared Og MD [facility] CPT-27391 Level 4 Est. Patient 19:55:18 SUPPLY CHAIN DIRECTOR Jared Og MD [facility] CPT-11770 Level 3 Est. Patient 20:13:34 SUPPLY CHAIN DIRECTOR Jared Og MD [facility] CPT-86110 Level 4 Est. Patient 16:31:27 CDT Gab Padron MD [facility] CPT-97117 Level 2 Est. Patient 12:23:38 CDT Jared Og MD [facility] CPT-24322 Level 3 Est. Patient 11:01:51 CDT Gab Padron MD [facility] CPT-37231 Level 3 Est. Patient 15:27:02 CDT Jared Og MD [facility] [place] CPT-18282 Level 4 Est. Patient 09:25:27 CDT Gab Padron MD [facility] CPT-78910 Level 3 Est. Patient 10:29:41 CDT Rodrigo Sarah [facility] CPT-88500 Level 4 Est. Patient 17:51:05 CDT Gab Padron MD [facility] CPT-38227 Level 3 Est. Patient 14:18:08 CDT Gab Padron MD [facility] CPT-87288 Level 4 Est. Patient 10:18:54 CDT Gab Padron MD [facility] CPT-80894 Level 3 Est. Patient 11:30:07 CDT Rodrigo Sarah [facility] CPT-14287 Level 4 Est. Patient 21:02:30 SUPPLY CHAIN DIRECTOR Gab Padron MD [facility] CPT-96099 Level 3 Est. Patient 11:02:19 SUPPLY CHAIN DIRECTOR Gab Padron MD [facility] [place]-07138 Level 4 Est. Patient 22:24:31 SUPPLY CHAIN DIRECTOR Gab Padron MD [facility] [place]-93209 Level 3 Est. Patient 18:33:46 SUPPLY CHAIN DIRECTOR Gab Padron MD [facility] [place]-72684 Level 3 Est. Patient 16:19:11 CDT Yolande Lindsay MD [facility] [place]-12255 Level 3 Est. Patient 18:59:14 CDT Yolande Lindsay MD [facility] [place]-87169 Level 4 Est. Patient 21:29:26 CDT Yolande Lindsay MD [facility]-34676 Level 3 Est. Patient 07:37:45 CDT Yolande Lindsay MD [facility]-09537 Level 3 Est. Patient 17:03:46 CDT Yolande Lindsay MD [facility]-42776 Level 4 Est. Patient 20:02:13 SUPPLY CHAIN DIRECTOR Yolande Lindsay MD [facility] [place]-09167 Level 3 Est. Patient 16:02:07 SUPPLY CHAIN DIRECTOR Alexis Ordaz MD [facility] [place]-75477 Level 3 Est. Patient 12:41:24 SUPPLY CHAIN DIRECTOR Yolande Lindsay MD PhD [facility] [place]-65943 Level 3 Est. Patient 15:41:20 SUPPLY CHAIN DIRECTOR Yolande Lindsay MD [facility] [place]-99989 Level 3 Est. Patient 13:20:02 SUPPLY CHAIN DIRECTOR Yolande Lindsay MD PhD [facility] [place]-00784 Level 3 Est. Patient 15:00:38 CDT Jared Og MD [facility]-02563 Level 3 Est. Patient 10:22:32 CDT Yolande Lindsay MD [facility] CPT-25796 Level 3 Est. Patient 17:12:58 CDT Yolande Lindsay MD [facility] [place]-86169 Level 4 Est. Patient 13:30:58 CDT Yolande Lindsay MD [facility] CPT-77537 Level 4 New Patient 09:02:42 CDT Jared Og MD [facility]-88909 Level 3 Est. Patient 08:19:07 CDT Yolande Lindsay MD [facility] CPT-69796 Level 3 Est. Patient 12:00:13 SUPPLY CHAIN DIRECTOR Gab Padron MD [facility] [place]-20453 Level 3 Est. Patient 16:15:23 SUPPLY CHAIN DIRECTOR Yolande Lindsay MD [facility]-22697 Level 2 Est. Patient 19:47:15 CDT Yolande Lindsay MD [facility] CPT-76755 Level 3 Est. Patient 21:38:31 CDT Yolande Lindsay MD [facility] [place]-19802 Level 3 Est. Patient 10:25:12 CDT Adiel PERAZA [facility] CPT-38588 Level 4 Est. Patient 10:51:58 CDT Yolande Lindsay MD [facility] CPT-95522 Level 3 Est. Patient 14:04:55 SUPPLY CHAIN DIRECTOR Rodrigo Sarah [facility] CPT-92131 Level 3 Est. Patient 10:46:35 SUPPLY CHAIN DIRECTOR Rodrigo Sarah [facility] CPT-36767 Level 3 Est. Patient 14:24:37 SUPPLY CHAIN DIRECTOR Yolande Lindsay MD [facility]-30671 Level 3 Est. Patient 17:41:58 SUPPLY CHAIN DIRECTOR Yolande Lindsay MD [facility] [place]-39063 Level 2 Est. Patient 22:01:41 SUPPLY CHAIN DIRECTOR Rodrigo Sarah [facility] CPT-33516 Level 2 Est. Patient 22:01:11 SUPPLY CHAIN DIRECTOR Rodrigo Sarah [facility] CPT-70801 Level 3 Est. Patient 10:12:29 SUPPLY CHAIN DIRECTOR Rodrigo Sarah [facility] CPT-78431 Level 3 Est. Patient 11:05:44 CDT Alexis Ordaz MD [facility] CPT-03132 Level 3 Est. Patient 14:57:20 CDT Yolande Lindsay MD [facility] CPT-22767 Level 3 Est. Patient 14:40:57 CDT Yolande Lindsay MD [facility] CPT-62923 Level 3 Est. Patient 20:55:40 CDT Yolande Lindsay MD [facility] CPT-43725 Level 3 Est. Patient 12:42:38 SUPPLY CHAIN DIRECTOR Yolande Lindsay MD [facility] CPT-76136 Level 3 Est. Patient 11:54:49 SUPPLY CHAIN DIRECTOR Des Hines MD [facility] CPT-80720 Level 3 Est. Patient 17:06:38 CDT Dewayne PERAZA [facility] Procedures Code Procedure Name Date Entry Date Standard Description CPT-67160 Hip, complete, 2-3 views - XRAY USE ONLY 17:19:04 SUPPLY CHAIN DIRECTOR CPT-83510 Venipuncture Draw Fee 08:37:59 SUPPLY CHAIN DIRECTOR CPT-76575 Liver Profile - LAB USE ONLY 08:37:59 SUPPLY CHAIN DIRECTOR CPT-56364 Lipid - LAB USE ONLY 08:37:58 SUPPLY CHAIN DIRECTOR CPT-38851 First Vx - Ix admin via ID IM or jet injects without counseling by physician 11:52:31 CDT CPT-50265 Fluzone Preservative Free Intramuscular Suspension 11:52 :31 CDT CPT-65053 Foot, left, comp min 3V - XRAY USE ONLY 09:24:54 CDT CPT-15594 Abd single AP View - XRAY USE ONLY 11:16:17 CDT CPT-62068 T spine AP/ Lat - XRAY USE ONLY 09:34:21 CDT CPT-88715 Chest 2V Frontal and Lat - XRAY USE ONLY 10:48:51 CDT CPT-17400 LS spine comp w obliq 13:28:00 SUPPLY CHAIN DIRECTOR CPT-J1040 Depo Medrol 80 mg (Methyl Prednisolone Acetate) 10:51: 28 SUPPLY CHAIN DIRECTOR CPT-J1100 Decadron 8mg (Dexamethasone) 10:51:28 SUPPLY CHAIN DIRECTOR CPT-95027 Abx/Therapy Injection 10:51:28 SUPPLY CHAIN DIRECTOR CPT-J1100 Decadron 8mg (Dexamethasone) 21:02:30 SUPPLY CHAIN DIRECTOR CPT-J1040 Depo Medrol 80 mg (Methyl Prednisolone Acetate) 21:02: 30 SUPPLY CHAIN DIRECTOR [id number] Event Monitor - MC Transmission 09:12:32 CDT 08/06 [id number] Event Monitor - MC review and interp 09:12:32 CDT [id number] Event Monitor - MC recording 09:12:32 CDT CPT-70761 EKG Trac and Interp 16:50:22 CDT CPT-J1030 Depo Medrol 40 mg (Methyl Prednisolone Acetate) 17:05: 54 CDT CPT-J1100 Decadron 4mg (Dexamethasone) 17:05:54 CDT CPT-73626 Abx/Therapy Injection 17:05:54 CDT CPT-J1100 Decadron 4mg (Dexamethasone) 16:55:28 CDT CPT-J1030 Depo Medrol 40 mg (Methyl Prednisolone Acetate) 16:55: 28 CDT CPT-75365 Ankle Complete - Min 3V 15:58:50 CDT CPT-97960 Knee 3V 15:58:50 CDT CPT-06808 Hip comp min 2V 15:58:50 CDT CPT-J2270 Morphine Sulfate 10 mg 14:25:44 SUPPLY CHAIN DIRECTOR CPT-J2550 Phenergan 12.5 mg (Promethazine) 14:25:44 SUPPLY CHAIN DIRECTOR CPT-31594 Abx/Therapy Injection 14:25:44 SUPPLY CHAIN DIRECTOR CPT-J2550 Phenergan 12.5 mg (Promethazine) 14:08:03 SUPPLY CHAIN DIRECTOR CPT-J2270 Morphine Sulfate 10 mg 14:08:03 SUPPLY CHAIN DIRECTOR CPT-23310 Bladder Scan 15:00:38 CDT CPT-TCMM Transitional Care Mgmt-Moderate 09:52:22 CDT CPT-J1030 Depo Medrol 40 mg (Methyl Prednisolone Acetate) 10:55: 18 CDT CPT-J1100 Decadron 4mg (Dexamethasone) 10:55:18 CDT CPT-28003 Abx/Therapy Injection 10:55:18 CDT CPT-J1030 Depo Medrol 40 mg (Methyl Prednisolone Acetate) 10:22: 32 CDT CPT-J1100 Decadron 4mg (Dexamethasone) 10:22:32 CDT CPT-44098 Postop F/U Visit 14:37:13 CDT CPT-32247 Ankle Complete - Min 3V 17:11:58 CDT CPT-82851 Foot comp min 3V 17:11:58 CDT CPT-96201 Bladder Scan 09:56:58 CDT CPT-67487 Postop F/U Visit 09:56:58 CDT CPT-61549 Cystoscopy 09:02:42 CDT CPT-20957 Bladder Scan 09:02:42 CDT CPT-59987 Abd single AP View 16:00:35 CDT CPT-81638 Administration single or combination vaccine inc oral 10 :15:43 CDT CPT-59554 Influenza split virus > age 3 10:15:43 CDT CPT-61725 Nail Avulsion 09:24:57 CDT CPT-OV Office Visit 11:15:41 CDT CPT-79836 Abx/Therapy Injection 10:51:30 CDT CPT-J3301 Kenalog 40 mg (Triamcinolone Acetonide) 10:25:12 CDT CPT-J1100 Decadron 4mg (Dexamethasone) 10:25:12 CDT CPT-60321 Anoscopy diagnostic 10:36:12 CDT CPT-OV Office Visit 15:34:31 CDT CPT-41283 Abx/Therapy Injection 08:21:15 SUPPLY CHAIN DIRECTOR CPT-J1885 Toradol 60 mg (Ketorolac) 10:46:35 SUPPLY CHAIN DIRECTOR CPT-OV Office Visit 19:51:16 SUPPLY CHAIN DIRECTOR CPT-26343 Spec Collection and Handling Fee 14:34:18 SUPPLY CHAIN DIRECTOR CPT-PV Prev. Care Visit 14:19:18 SUPPLY CHAIN DIRECTOR CPT-34675 Postop F/U Visit 14:47:51 SUPPLY CHAIN DIRECTOR CPT-62383 Postop F/U Visit 15:15:14 SUPPLY CHAIN DIRECTOR CPT-55204 Postop F/U Visit 14:41:43 CDT CPT-55874 Postop F/U Visit 15:47:46 CDT CPT-OV Office Visit 15:27:23 CDT CPT-OV Office Visit 17:20:34 CDT CPT-22079 Abx/Therapy Injection 15:05:57 CDT CPT-J1100 Decadron 8mg (Dexamethasone) 14:44:57 CDT CPT-J1040 Depo Medrol 80 mg (Methyl Prednisolone Acetate) 14:44: 57 CDT CPT-JTINJ Joint Injection 10:17:37 CDT CPT-39445 Administration 2+ single or combination vaccines inc oral 13:01:46 SUPPLY CHAIN DIRECTOR CPT-88500 Administration single or combination vaccine inc oral 13 :01:46 SUPPLY CHAIN DIRECTOR CPT-73145 Pneumovax 13:01:46 SUPPLY CHAIN DIRECTOR CPT-05816 Influenza split virus > age 3 13:01:46 SUPPLY CHAIN DIRECTOR CPT-89985 Administration single or combination vaccine inc oral 08 :56:49 CDT [facility]-07463 Tdap 08:56:49 CDT
--- OUTSIDE RECORDS SUMMARY | 2017-03-22 03:06 | XMS REPORT ---
Author Author [facility] Medical Staff Organization [facility] Address [address] [id number] Phone [phone] Care Team Providers Care Bleach Boiler Puller Name Role Phone EVELYN PADRON MD PP [phone] EVELYN PADRON MD, PP [phone] EVELYN PADRON MD, PP [phone] Summary purpose TRANSITION OF CARE AUTO GENERATION [...] Relevant diagnostic tests and/or laboratory data RESULTS [id number]:27:00 Progress Note PROGRESS NOTE S: I just spoke with Dr. Thibodeaux of [facility], and he will be accepting the patient to the Neurology floor. However, if the patient deteriorates and continues to have more seizures en route to , she will be placed in the intensive care unit. At this time, the patient is stable. However, she continues to have seizures. They are tending to be approximately 60 seconds or less in nature. They seem to be generalized seizures. She is stable throughout and after the seizure she appears to be somewhat fatigued and drowsy. She is not losing control of her bowel or bladder. Vitals remain normal. The patient is grossly intact with regards to neuro status both before and after seizures. The patient is verbalizing appropriately. The patient is going to be transferred by air to [facility] and we will look for confirmation on her arrival and correspondence. DAIN Winter/kendal 09/06/2015 17:27:17/09/07/2015 12:26:59 Clinic [facility]: [facility] [address] [place] [address]<END HEADER> [id number]:58:00 Progress Note PROGRESS NOTE S: I just received a phone call from the patient's nurse in the Observation Unit that she had another generalized seizure that lasted about 1 minute. It was consistent with the other 6 to 7 seizures that she has had today. Given Dr. Teixeira, which is the patient's neurologist, recommendations, just 30 to 45 minutes prior to this new episode of seizure, we will go ahead and transfer the patient to . I have placed a phone call at the transfer line for neurologist donkey ride operator to receive acceptance and bed placement. DAIN Winter/cdj 09/06/2015 16:58:10/09/07/2015 12:23:59 Clinic Code: cc: <[place] [address] [place] [address]<END HEADER> [id number]:18:00 Progress Note PROGRESS NOTE 09/06/2015 16:18:04 S:I just spoke with , who is the patient's neurologist out of [facility].We discussed the patient's history.Given the patient had [...] DAIN Winter/jt09/06/2015 16:18:07/09/0309/06/2015 16:20:10 Clinic Code: cc: <[facility] [id number] [place] [address]<END HEADER> Routine Urinalysis [id number]:55:00 Result Normal Range Units Color YELLOW Clarity Clear Specific [place] 1.010 1.003-1.035 pH 6.0 4.5-8.0 Glucose NEGATIVE Bilirubin NEGATIVE Ketones NEGATIVE Protein NEGATIVE Urobilinogen 0.2 0-0.2 E.U./dL Nitrites NEGATIVE Blood NEGATIVE Leukocytes NEGATIVE WBCs 0-5 RBCs No RBC's Seen. Squamous Epithelial 2+ Bacteria Rare Amount Drug Screen In House [id number]:55:00 Result Normal Range Units Amphetamine Negative Negative Barbiturates Negative Negative Benzodiazepines Negative Negative Cannabinoids Negative Negative *Triage TOXis a medical drug screen to be used only for assessment and treatment of patients. This drug screen cannot be used for employment or legal purposes. Cocaine Negative Negative Mamp/MDMA Negative Negative Methadone Negative Negative Opiates Negative Negative Phencyclidine Negative Negative Tricyclic Antidepressants Negative Negative Chemistry [id number]:04:00 Result Normal Range Units Sodium 135 134-145 [...] Estimated GFR L 32 >=60 mL/min/1.7 Hematology [id number]:04:00 Result Normal Range Units WBC 5.0 4.8-10.8 103/uL RBC L 3.9 4.2-5.4 106/uL HGB L 11.4 12.0-16.0 g/dl HCT L 35.8 36.9-47.0 % MCV 92.0 81-99 FL MCH 29.3 27-31 pg MCHC L 31.8 33-37 g/dl RDW 14.2 11.5-15.5 % PLT 178 130-400 103/uL MPV 9.4 7.3-10.4 FL Neutro % 50.4 40-70 % Lymph % 39.3 20-40 % [place] % 9.7 0-10.0 % Eos % 0.0 0-7.0 % Baso % 0.4 0-2 % Neutro # 2.5 1.5-7.5 103/uL Lymph # 2.0 0.9-4.0 103/uL [place] # 0.5 0-0.8 103/uL Eos # 0.0 0-0.6 103/uL Baso # 0.0 0-0.1 103/uL Special Chemistry [id number]:04:00 Result Normal Range Units Hemoglobin A1C 5.2 4.5-6.2 % Body Fluid [id number]:55:00 Result Normal Range Units pH 6.0 4.5-8.0 Hematology - Other (Misc) [id number]:04:00 Result Normal Range Units Sed Rate 26 0-30 Thyroid Testing [id number]:04:00 Result Normal Range Units TSH 0.61 0.36-3.74 uIU/mL Free T4 0.78 0.76-1.46 ng/dl Radiology Results [id number]:48:00 CT HEAD W/O CONT PACs Image DATE OF EXAM: 2015 [id number] HEAD WO CONTRAST : RADIOLOGY REPORT DATE OF SERVICE: 09/06/2015 HISTORY:Seizure activity. COMPUTED TOMOGRAPHY OF THE HEAD WITHOUT CONTRAST 1220 HOURS Axial images were obtained and evaluated. No acute intracranial hemorrhage can be seen. The ventricles and sulci are normal. No hyper or hypodense lesions to suggest pathologic presentation can be seen. Calvarium is intact. Sinuses are clear. IMPRESSION:Normal study. DO SANDEE Sykes/lillian 09/06/2015 12:52: / 09/06/2015 16:24:53 cc:Dr. Padron This document has been electronically Signed by: On: DATE OF EXAM: 2015 [id number] HEAD WO CONTRAST : RADIOLOGY REPORT DATE OF SERVICE: 09/06/2015 HISTORY:Seizure activity. COMPUTED TOMOGRAPHY OF THE HEAD WITHOUT CONTRAST 1220 HOURS Axial images were obtained and evaluated. No acute intracranial hemorrhage can be seen. The ventricles and sulci are normal. No hyper or hypodense lesions to suggest pathologic presentation can be seen. Calvarium is intact. Sinuses are clear. IMPRESSION:Normal study. DO SANDEE Sykes/jdeandre 09/06/2015 12:52: / 09/06/2015 16:24:53 cc:Dr. Padron This document has been electronically Signed by: JESUSITA WESTBROOK DO On: 20154:48P UNCONTROLLED SEIZURE ACTIVITY Result Amended on 2015-09-07 at 16:48:48. Previous status was SD. UNCONTROLLED SEIZURE ACTIVITY [id number]:04:00 Result Normal Range Units MPV 9.4 7.3-10.4 FL History of procedures Procedure Code Code Type Description Date Performed Performing Physician 21642 CPT-4 COMPLETE CBC W/AUTO DIFF WBC 09-06-2015 EVELYN PADRON 40553 CPT-4 COMPREHEN METABOLIC PANEL 09-06-2015 EVELYN PADRON 83928 CPT-4 URINALYSIS, AUTO W/SCOPE 09-06-2015 EVELYN PADRON 18520 CPT-4 DRUG SCREEN NON TLC DEVICES 09-06-2015 EVELYN PADRON 63041 CPT-4 CT HEAD/BRAIN W/O DYE 09-06-2015 EVELYN PADRON 95772 CPT-4 RBC SED RATE, NONAUTOMATED 09-06-2015 EVELYN PADRON 76068 CPT-4 ASSAY THYROID STIM HORMONE 09-06-2015 EVELYN PADRON 54300 CPT-4 ASSAY OF FREE THYROXINE 09-06-2015 EVELYN PADRON 35931 CPT-4 GLYCOSYLATED HEMOGLOBIN TEST 09-06-2015 EVELYN PADRON J1885 CPT-4 TORADOL SYR 30MG/ML 09-06-2015 ANYI KEARNEY J2060 CPT-4 LORAZEPAM INJECTION 09-06-2015 ANYI KEARNEY J1953 CPT-4 LEVETIRACETAM INJECTION 09-06-2015 EVELYN PADRON J7040 CPT-4 NORMAL SALINE SOLUTION INFUS 09-06-2015 EVELYN PADRON J7030 CPT-4 NORMAL SALINE SOLUTION INFUS 09-06-2015 EVELYN PADRON J2060 CPT-4 LORAZEPAM INJECTION 09-06-2015 EVELYN PADRON J2060 CPT-4 LORAZEPAM INJECTION 09-06-2015 EVELYN PADRON 87093 CPT-4 ROUTINE VENIPUNCTURE 09-06-2015 DEBBI DORADO 23456 CPT-4 SPECIAL SUPPLIES 09-06-2015 EVELYN PADRON 56052 CPT-4 EMERGENCY DEPT VISIT 09-06-2015 DEBBI DORADO 59870 CPT-4 EMERGENCY DEPT VISIT 09-06-2015 DEBBI DORADO 49178 CPT-4 THER/PROPH/DIAG INJ, IV PUSH 09-06-2015 EVELYN PADRON 02403 CPT-4 TX/PRO/DX INJ NEW DRUG PHOTO STUDIO ASSISTANT 09-06-2015 EVELYN PADRON G0378 CPT-4 HOSPITAL OBSERVATION PER HR 09-06-2015 EVELYN PADRON G0378 CPT-4 HOSPITAL OBSERVATION PER HR 09-06-2015 EVELYN PADRON 02534 CPT-4 TX/PRO/DX INJ NEW DRUG ADDON 09-06-2015 EVELYN PADRON 38165 CPT-4 TX/PRO/DX INJ NEW DRUG PHOTO STUDIO ASSISTANT 09-06-2015 EVELYN PADRON Functional status Functional Status Finding Observation Time [...] Dental Hygiene good :49 Abdomen Appearance obese :49 Abdomen soft :49 Bowel Sounds present :49 NG Tube no :49 Feeding Tube none :49 Bajwa no :49 Cont Bladder Irr no :49 Ostomy no :49 Stool other (specify) Comment: unable to assess at is time :49 Urination other (specify) Comment: unable [...] headache stiff neck no :49 WBC > 64507 no :49 WBC < 4000 no :49 IV Site Location R AC :44 IV Type peripheral :44 IV Site Information existing :44 IV Site [place] 20 :44 IV Site Appearance WNL :44 IV Site Color clear :44 IV Site Patent yes :44 Dressing Type occlusive :44 Nursing Note Report called to MIGUEL Bradford at [facility]. :55 Cognitive Status Finding Observation Time Oriented [...] :45 Physical no :45 Hearing no :45 Healthcare Or Medical Needed no :45 Sign Language no :45 [...] (describe) Comment: wedding bands, glasses PNE Vac 2014 Flu Vac 2014 Tetanus Vac 2011
--- OUTSIDE RECORDS SUMMARY | 2017-03-22 03:06 | XMS REPORT | Clinical Summary ---
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 TRAZODONE HCL sees things Critical Active [...] apply bid sparingly to rash TRIAMCINOLONE ACETONIDE 28057139943 Active Yolande Lindsay MD PhD Active FUROSEMIDE 20 MG TAB 1 tablet by mouth daily FUROSEMIDE 28973922673 Active Yolande Lindsay MD PhD Active LISINOPRIL 20 MG ORAL TABS 1 tab by mouth daily LISINOPRIL 29843701223 Active Yolande Lindsay MD PhD Active FUROSEMIDE 20 MG TABS 1 pill by mouth daily, for edema FUROSEMIDE 78952338809 No Longer Active Yolande Lindsay MD PhD Active FISH OIL 1000 MG CAPS 1 pill daily x 1 week, then 2 pills daily x 1 week, then 3 pills daily x 1 week, then 4 pills daily OMEGA-3 FATTY ACIDS 12688872730 Active Yolande Lindsay MD PhD Active NIACIN 500 MG TABS 1 pill by mouth nightly x 1 week, then 2 pills x 1 week, then 3 pills x 1 week, then 4 pills nightly - take after evening meal, with applesauce or an apple NIACIN 19623707698 Active Yolande Lindsay MD PhD Active ATORVASTATIN CALCIUM 10 MG TABS 1 pill by mouth daily, for cholesterol 09/06 ATORVASTATIN CALCIUM 97617258431 Active Yolande Lindsay MD PhD Active CALCIUM 600+D PLUS MINERALS 600-400 MG-UNIT ORAL CHEW 1 tab by mouth daily CALCIUM CARBONATE-VIT D-MIN 83927062788 No Longer Active Yolande Lindsay MD PhD Active CYCLOBENZAPRINE HCL 10 MG TABS 1 tablet by mouth three times daily as needed for muscle spasm/pain CYCLOBENZAPRINE HCL 15439607775 Active Yolande Lindsay MD PhD Active ONDANSETRON 4 MG TBDP 1 q4h PRN nausea ONDANSETRON 42123490581 Active Yolande Lindsay MD PhD Active ADULT ASPIRIN EC LOW STRENGTH 81 MG TBEC Take 1 tablet by mouth daily 2014 ASPIRIN 34518359031 No Longer Active Yolande Lindsay MD PhD Active ZOFRAN ODT 4 MG TBDP 1 pill dissolved by mouth every 4 hours if needed for nausea ONDANSETRON 14042934874 No Longer Active Yolande Lindsay MD PhD Active CEFTIN 500 MG TAB 1 twice a day CEFUROXIME AXETIL 86573659179 No Longer Active Yolande Lindsay MD PhD Active ALBUTEROL SULFATE 0.083 % NEBU SOLN one vial per nebulizer every 4-6 hours as needed ALBUTEROL SULFATE 36156946847 No Longer Active Alexis Ordaz MD Active DOXYCYCLINE HYCLATE 100 MG CAP 1 cap by mouth twice daily DOXYCYCLINE HYCLATE 06840960835 No Longer Active Yolande Lindsay MD PhD Active CYCLOBENZAPRINE HCL 10 MG TABS 1/2 - 1 tab by mouth three times daily if needed for spasms/pain CYCLOBENZAPRINE HCL 78673803045 No Longer Active Yolande Lindsay MD PhD Active TRILEPTAL 600 MG TABS Take one 1/2 tablet in Am and 1 tablet at night OXCARBAZEPINE 89731361927 Active Yolande Lindsay MD PhD Active AZITHROMYCIN 250 MG TABS 2 pills on day 1, then 1 pill daily x 4 days AZITHROMYCIN 55882177322 No Longer Active Yolande Lindsay MD PhD Active XOPENEX 1.25 MG/3ML NEBU 1 neb every 4 hours if needed for cough/congestion LEVALBUTEROL HCL 58739832912 No Longer Active Yolande Lindsay MD PhD Active DOXYCYCLINE HYCLATE 100 MG TAB 1 tab twice a day for 14 days 2013 DOXYCYCLINE HYCLATE 84973118634 No Longer Active Yolande Lindsay MD PhD Active LEVOTHYROXINE SODIUM 75 MCG TABS Take 1 tab daily LEVOTHYROXINE SODIUM 85954047911 Active Yolande Lindsay MD PhD Active PREVACID 30 MG CPDR Take 1 tablet by mouth daily-PRN LANSOPRAZOLE 85086393822 No Longer Active Yolande Lindsay MD PhD Active PA VITAMIN D-3 2000 UNIT CAPS 1 CAP PO DAILY CHOLECALCIFEROL 24228047101 No Longer Active Yolande Lindsay MD PhD Active CEFDINIR 300 MG CAPS by mouth twice a day CEFDINIR 78744346806 No Longer Active Gab Padron MD Active TOPAMAX 50 MG TABS 1 PO twice daily TOPIRAMATE 14011118237 Active Yolande Lindsay MD PhD Active AZITHROMYCIN 250 MG TABS 2 po qd x 1 day, then 1 po qd x 4 days AZITHROMYCIN 69124101281 No Longer Active Yolande Lindsay MD PhD Active DICLOFENAC SODIUM 75 MG TBEC 1 tablet by q 12 hours PRN headaches DICLOFENAC SODIUM 28849547400 No Longer Active Yolande Lindsay MD PhD Active FLONASE 50 MCG/ACT SUSP 1 spray each nostril am and hs FLUTICASONE PROPIONATE 31888292390 No Longer Active Todd Callaway MD Active ANUSOL-HC 25 MG SUPPOSITORY 1 rectally twice a day as needed for hemorrhoids HYDROCORTISONE JAYDEN (RECTAL) 88181524295 No Longer Active Yolande Lindsay MD PhD Active ANUSOL-HC 25 MG SUPPOSITORY 1 suppository rectally each evening as needed for anal fissure HYDROCORTISONE JAYDEN (RECTAL) 12072229996 No Longer Active LONNIE Iglesias Active VALIUM 5 MG TAB 1 po 30 minutes prior to your MRI DIAZEPAM 19969774166 No Longer Active LONNIE Iglesais Active METHOCARBAMOL 750 MG TABS 1 PO QID PRN METHOCARBAMOL 28863711656 No Longer Active Daphne Wetzel APRN Active NITROSTAT 0.4 MG SUBL as directed NITROGLYCERIN 98663279465 No Longer Active Rodrigo Sarah APRN Active ROBAXIN-750 750 MG TABS 2 four times a day for 3 days as needed for muscle spasm, then 1 four times a day as needed METHOCARBAMOL 21629405848 No Longer Active Rodrigo Sarah APRN Active HYDROCODONE-ACETAMINOPHEN 5-325 MG TABS 1 q 4-6 hrs prn HYDROCODONE-ACETAMINOPHEN 99271721135 No Longer Active Rodrigo Sarah APRN Active VERAPAMIL HCL CR 180 MG CR-TABS TAKE 1 TAB DAILY VERAPAMIL HCL 09260754711 No Longer Active Yolande Lindsay MD PhD Active BACTRIM DS 800-160 MG TAB 1 tab by mouth twice daily TRIMETHOPRIM-SULFAMETHOXAZOLE 15854230843 No Longer Active Yolande Lindsay MD PhD Active NEXIUM 40 MG PACK 1 by mouth daily ESOMEPRAZOLE MAGNESIUM 69179700401 No Longer Active Des Hines MD Active EPIPEN 2-CHARLETTE 0.3 MG/0.3ML OMARI as need for allergic reaction EPINEPHRINE 32624573494 Active Yolande Lindsay MD PhD Active NEXIUM 40 MG CPDR 1 PO Q D DAY ESOMEPRAZOLE MAGNESIUM 28772622023 No Longer Active Sadia Perry RN Active NEXIUM 40 MG PACK 1 by mouth daily NEXIUM 40 MG PACK ESOMEPRAZOLE MAGNESIUM Inactive VERAPAMIL HCL CR 180 MG CR-TABS TAKE 1 TAB DAILY VERAPAMIL HCL CR 180 MG CR-TABS VERAPAMIL HCL Inactive HYDROCODONE-ACETAMINOPHEN 5-325 MG TABS 1 q 4-6 hrs prn HYDROCODONE-ACETAMINOPHEN 5-325 MG TABS 697865 HYDROCODONE-ACETAMINOPHEN Inactive ROBAXIN-750 750 MG TABS 2 four times a day for 3 days as needed for muscle spasm, then 1 four times a day as needed ROBAXIN-750 750 MG TABS 710936 METHOCARBAMOL Inactive NITROSTAT 0.4 MG SUBL as directed NITROSTAT 0.4 MG SUBL NITROGLYCERIN Inactive METHOCARBAMOL 750 MG TABS 1 PO QID PRN METHOCARBAMOL 750 MG TABS 237207 METHOCARBAMOL Inactive VALIUM 5 MG TAB 1 po 30 minutes prior to your MRI VALIUM 5 MG TAB 903424 DIAZEPAM Inactive ANUSOL-HC 25 MG SUPPOSITORY 1 suppository rectally each evening as needed for anal fissure ANUSOL-HC 25 MG SUPPOSITORY 1070565 HYDROCORTISONE JAYDEN (RECTAL) Inactive ANUSOL-HC 25 MG SUPPOSITORY 1 rectally twice a day as needed for hemorrhoids ANUSOL-HC 25 MG SUPPOSITORY 9191134 HYDROCORTISONE JAYDEN (RECTAL) Inactive FLONASE 50 MCG/ACT SUSP 1 spray each nostril am and hs FLONASE 50 MCG/ACT SUSP FLUTICASONE PROPIONATE Inactive DICLOFENAC SODIUM 75 MG TBEC 1 tablet by q 12 hours PRN headaches DICLOFENAC SODIUM 75 MG TBEC 962852 DICLOFENAC SODIUM Inactive PA VITAMIN D-3 2000 UNIT CAPS 1 CAP PO DAILY PA VITAMIN D-3 2000 UNIT CAPS CHOLECALCIFEROL Inactive PREVACID 30 MG CPDR Take 1 tablet by mouth daily-PRN PREVACID 30 MG CPDR 375700 LANSOPRAZOLE Inactive DOXYCYCLINE HYCLATE 100 MG TAB 1 tab twice a day for 14 days 2013 DOXYCYCLINE HYCLATE 100 MG TAB 1309488 DOXYCYCLINE HYCLATE Inactive XOPENEX 1.25 MG/3ML NEBU 1 neb every 4 hours if needed for cough/congestion XOPENEX 1.25 MG/3ML NEBU 711466 LEVALBUTEROL HCL Inactive CYCLOBENZAPRINE HCL 10 MG TABS 1/2 - 1 tab by mouth three times daily if needed for spasms/pain CYCLOBENZAPRINE HCL 10 MG TABS 751016 CYCLOBENZAPRINE HCL Inactive ALBUTEROL SULFATE 0.083 % NEBU SOLN one vial per nebulizer every 4-6 hours as needed ALBUTEROL SULFATE 0.083 % NEBU SOLN 702595 ALBUTEROL SULFATE Inactive CEFTIN 500 MG TAB 1 twice a day CEFTIN 500 MG TAB 509768 CEFUROXIME AXETIL Inactive ZOFRAN ODT 4 MG TBDP 1 pill dissolved by mouth every 4 hours if needed for nausea ZOFRAN ODT 4 MG TBDP 228399 ONDANSETRON Inactive ADULT ASPIRIN EC LOW STRENGTH 81 MG TBEC Take 1 tablet by mouth daily 2014 ADULT ASPIRIN EC LOW STRENGTH 81 MG TBEC 750139 ASPIRIN Inactive CALCIUM 600+D PLUS MINERALS 600-400 [...] x 4 days AZITHROMYCIN 250 MG TABS 0729727 AZITHROMYCIN Inactive CEFDINIR 300 MG CAPS by mouth twice a day CEFDINIR 300 MG CAPS 283562 CEFDINIR Inactive AZITHROMYCIN 250 MG TABS 2 pills on day 1, then 1 pill daily x 4 days AZITHROMYCIN 250 MG TABS 2329358 AZITHROMYCIN Inactive DOXYCYCLINE HYCLATE 100 MG CAP 1 cap by mouth twice daily DOXYCYCLINE HYCLATE 100 MG CAP 4602752 DOXYCYCLINE HYCLATE Inactive FUROSEMIDE 20 MG TABS 1 pill by mouth daily, for edema FUROSEMIDE 20 MG TABS 734134 FUROSEMIDE Inactive Immunizations Vaccine Administration Date Value Standard Description Seasonal influenza vaccine, injectable, containing preservative, for > 3 years old (Afluria, FluLaval, Fluzone, Fluvirin, Fluarix, Agriflu(>=18 yo)) Fluzone (>3 yrs.) [[id number]] Influenza, seasonal, injectable influenza immunization (Flu Vax) has been administered Influenza - Unspecified Formulation [CVX88] influenza virus vaccine, unspecified formulation Seasonal influenza vaccine, injectable, containing preservative, for > 3 years old (Afluria, FluLaval, Fluzone, Fluvirin, Fluarix, Agriflu(>=18 yo)) Fluzone (>3 yrs.) [IZL742] Influenza, seasonal, injectable pneumococcal immunization administered Pneumovax 23 [CVX33] pneumococcal polysaccharide vaccine, 23 valent dT (Diphtheria and Tetanus) booster given given Td(adult) unspecified formulation Boostrix (Tetanus toxoid, reduced diphtheria toxoid and acellular pertussis vaccine, adsorbed), booster Boostrix [GOR624] tetanus toxoid, reduced diphtheria toxoid, and acellular [...] mg/dL Chart Maintenance: Outside labs entered on Gap Designsheet - Hematology leukocyte count, blood 6.1 10*3/mm3 hemoglobin, blood 11.0 g/dL platelet count 175 10*3/mm3 Lab Report: Basic Metabolic Panel - Chemistry sodium, serum 145 mmol/L 864-755 1006/06/22 potassium, serum 3.9 mmol/L 3.5-5.2 chloride, serum 109 mmol/L 98-107 carbon dioxide, venous blood 23.4 mmol/L 21.0-32.0 blood glucose 92 mg/dL 65-110 calcium, serum 8.2 mg/dL 8.5-10.1 urea nitrogen, blood 24 mg/dL 7-18 creatinine, serum 1.30 mg/dL 0.60-1.30 Lab Report: Cardio IQ Advanced Lipid and Inlammation Panel /62778 - Chemistry cholesterol, serum 198 mg/dL 776-580 7487/04/30 HDL cholesterol, serum 65 mg/dL > OR=46 triglyceride, serum, fasting 82 mg/dL LDL cholesterol, serum 117 mg/dL cholesterol/HDL ratio, serum 3.0 calc < OR=5.0 Lab Report: CBC W/DIFF, Basic Metabolic Panel - Chemistry sodium, serum 144 mmol/L 462-779 3177/01/21 potassium, serum 4.2 mmol/L 3.5-5.2 chloride, serum [...] Panel - Chemistry sodium, serum 144 mmol/L 066-026 5877/12/15 potassium, serum 5.4 mmol/L 3.5-5.2 chloride, serum [...] UA - Chemistry sodium, serum 143 mmol/L 928-593 6120/10/24 potassium, serum 3.9 mmol/L 3.5-5.2 chloride, serum [...] pH, urine, semiquantitative 6.0 5.0-8.5 Lab Report: CBC, Comp. Metabolic Panel, Thyroid Stimulating Hormone (L) - Chemistry sodium, serum 145 mmol/L 307-261 2051/09/02 potassium, serum 4.6 mmol/L 3.5-5.2 chloride, serum [...] 51 mg/dL 30-200 cholesterol, serum 173 mg/dL 071-877 3278/04/28 HDL cholesterol, serum 63 mg/dL 32-96 LDL [...] 0-19 Encounters Code Encounter Date Provider Facility CPT-35615 Level 3 Est. Patient 18:59:14 CDT Yolande Lindsay MD [facility] CPT-12818 Level 4 Est. Patient 21:29:26 CDT Yolande Lindsay MD [facility]-19747 Level 3 Est. Patient 07:37:45 CDT Yolande Lindsay MD [facility]-05751 Level 3 Est. Patient 17:03:46 CDT Yolande Lindsay MD [facility]-13109 Level 4 Est. Patient 20:02:13 ORTHODONTIST Yolande Lindsay MD [facility] CPT-10440 Level 3 Est. Patient 16:02:07 ORTHODONTIST Alexis Ordaz MD [facility] CPT-32999 Level 3 Est. Patient 12:41:24 ORTHODONTIST Yolande Lindsay MD [facility] CPT-42256 Level 3 Est. Patient 15:41:20 ORTHODONTIST Yolande Lindsay MD [facility] CPT-02886 Level 3 Est. Patient 13:20:02 ORTHODONTIST Yolande Lindsay MD [facility] CPT-38489 Level 3 Est. Patient 15:00:38 CDT Jared Og MD [facility]-26070 Level 3 Est. Patient 10:22:32 CDT Yolande Lindsay MD [facility] CPT-57095 Level 3 Est. Patient 17:12:58 CDT Yolande Lindsay MD [facility]-31859 Level 4 Est. Patient 13:30:58 CDT Yolande Lindsay MD [facility]-54622 Level 4 New Patient 09:02:42 CDT Jared Og MD [facility]-93977 Level 3 Est. Patient 08:19:07 CDT Yolande Lindsay MD [facility]-01851 Level 3 Est. Patient 12:00:13 ORTHODONTIST Gab Padron MD [facility]-65553 Level 3 Est. Patient 16:15:23 ORTHODONTIST Yolande Lindsay MD PhD [facility]-19186 Level 2 Est. Patient 19:47:15 CDT Yolande Lindsay MD [facility]-15645 Level 3 Est. Patient 21:38:31 CDT Yolande Lindsay MD [facility]-53118 Level 3 Est. Patient 10:25:12 CDT Adiel PERAZA [facility] CPT-58575 Level 4 Est. Patient 10:51:58 CDT Yolande Lindsay MD [facility]-41918 Level 3 Est. Patient 14:04:55 ORTHODONTIST Rodrigo Sarah [facility]-72896 Level 3 Est. Patient 10:46:35 ORTHODONTIST Rodrigo Sarah [facility]-60129 Level 3 Est. Patient 14:24:37 ORTHODONTIST Yolande Lindsay MD PhD [facility]-84330 Level 3 Est. Patient 17:41:58 ORTHODONTIST Yolande Lindsay MD [facility]-87600 Level 2 Est. Patient 22:01:41 ORTHODONTIST Rodrigo Sarah [facility]-97318 Level 2 Est. Patient 22:01:11 ORTHODONTIST Rodrigo Sarah [facility] CPT-51734 Level 3 Est. Patient 10:12:29 ORTHODONTIST Rodrigo Sarah [facility] CPT-10665 Level 3 Est. Patient 11:05:44 CDT Alexis Ordaz MD [facility] CPT-43218 Level 3 Est. Patient 14:57:20 CDT Yolande Lindsay MD [facility] CPT-66869 Level 3 Est. Patient 14:40:57 CDT Yolande Lindsay MD [facility] CPT-13471 Level 3 Est. Patient 20:55:40 CDT Yolande Lindsay MD [facility] CPT-96577 Level 3 Est. Patient 12:42:38 ORTHODONTIST Yolande Lindsay MD [facility] CPT-57791 Level 3 Est. Patient 11:54:49 ORTHODONTIST Des Hines MD [facility] CPT-59205 Level 3 Est. Patient 17:06:38 CDT Dewayne PERAZA [facility] Procedures Code Procedure Name Date Entry Date Standard Description [id number] Event Monitor - MC Transmission 09:12:32 CDT 08/06 [id number] Event Monitor - MC review and interp 09:12:32 CDT [id number] Event Monitor - MC recording 09:12:32 CDT CPT-88086 EKG Trac and Interp 16:50:22 CDT CPT-J1030 Depo Medrol 40 mg (Methyl Prednisolone Acetate) 17:05: 54 CDT CPT-J1100 Decadron 4mg (Dexamethasone) 17:05:54 CDT CPT-99768 Abx/Therapy Injection 17:05:54 CDT CPT-J1100 Decadron 4mg (Dexamethasone) 16:55:28 CDT CPT-J1030 Depo Medrol 40 mg (Methyl Prednisolone Acetate) 16:55: 28 CDT CPT-73114 Ankle Complete - Min 3V 15:58:50 CDT CPT-43977 Knee 3V 15:58:50 CDT CPT-15065 Hip comp min 2V 15:58:50 CDT CPT-J2270 Morphine Sulfate 10 mg 14:25:44 ORTHODONTIST CPT-J2550 Phenergan 12.5 mg (Promethazine) 14:25:44 ORTHODONTIST CPT-41790 Abx/Therapy Injection 14:25:44 ORTHODONTIST CPT-J2550 Phenergan 12.5 mg (Promethazine) 14:08:03 ORTHODONTIST CPT-J2270 Morphine Sulfate 10 mg 14:08:03 ORTHODONTIST CPT-33159 Bladder Scan 15:00:38 CDT CPT-TCMM Transitional Care Mgmt-Moderate 09:52:22 CDT CPT-J1030 Depo Medrol 40 mg (Methyl Prednisolone Acetate) 10:55: 18 CDT CPT-J1100 Decadron 4mg (Dexamethasone) 10:55:18 CDT CPT-93804 Abx/Therapy Injection 10:55:18 CDT CPT-J1030 Depo Medrol 40 mg (Methyl Prednisolone Acetate) 10:22: 32 CDT CPT-J1100 Decadron 4mg (Dexamethasone) 10:22:32 CDT CPT-42402 Postop F/U Visit 14:37:13 CDT CPT-40179 Ankle Complete - Min 3V 17:11:58 CDT CPT-10236 Foot comp min 3V 17:11:58 CDT CPT-76557 Bladder Scan 09:56:58 CDT CPT-77498 Postop F/U Visit 09:56:58 CDT CPT-58374 Cystoscopy 09:02:42 CDT CPT-53464 Bladder Scan 09:02:42 CDT CPT-87169 Abd single AP View 16:00:35 CDT CPT-13207 Administration single or combination vaccine inc oral 10 :15:43 CDT CPT-15477 Influenza split virus > age 3 10:15:43 CDT CPT-76415 Nail Avulsion 09:24:57 CDT CPT-OV Office Visit 11:15:41 CDT CPT-02061 Abx/Therapy Injection 10:51:30 CDT CPT-J3301 Kenalog 40 mg (Triamcinolone Acetonide) 10:25:12 CDT CPT-J1100 Decadron 4mg (Dexamethasone) 10:25:12 CDT CPT-09655 Anoscopy diagnostic 10:36:12 CDT CPT-OV Office Visit 15:34:31 CDT CPT-36255 Abx/Therapy Injection 08:21:15 ORTHODONTIST CPT-J1885 Toradol 60 mg (Ketorolac) 10:46:35 ORTHODONTIST CPT-OV Office Visit 19:51:16 ORTHODONTIST CPT-73827 Spec Collection and Handling Fee 14:34:18 ORTHODONTIST CPT-PV Prev. Care Visit 14:19:18 ORTHODONTIST CPT-46839 Postop F/U Visit 14:47:51 ORTHODONTIST CPT-24338 Postop F/U Visit 15:15:14 ORTHODONTIST CPT-10428 Postop F/U Visit 14:41:43 CDT CPT-40395 Postop F/U Visit 15:47:46 CDT CPT-OV Office Visit 15:27:23 CDT CPT-OV Office Visit 17:20:34 CDT CPT-88455 Abx/Therapy Injection 15:05:57 CDT CPT-J1100 Decadron 8mg (Dexamethasone) 14:44:57 CDT CPT-J1040 Depo Medrol 80 mg (Methyl Prednisolone Acetate) 14:44: 57 CDT CPT-JTINJ Joint Injection 10:17:37 CDT CPT-23631 Administration 2+ single or combination vaccines inc oral 13:01:46 ORTHODONTIST CPT-46597 Administration single or combination vaccine inc oral 13 :01:46 ORTHODONTIST CPT-46356 Pneumovax 13:01:46 ORTHODONTIST CPT-74151 Influenza split virus > age 3 13:01:46 ORTHODONTIST CPT-84488 Administration single or combination vaccine inc oral 08 :56:49 CDT CPT-04898 Tdap 08:56:49 CDT
--- OUTSIDE RECORDS SUMMARY | 2017-03-22 03:07 | XMS REPORT ---
Author Author [email or web address] Medical Staff Organization [facility] Address [address] [place] [id number] Phone [phone] Care Team Providers Care Forensic Pathologist Name Role Phone EVELYN SPEARS MD PP [phone] Summary purpose TRANSITION OF CARE AUTO GENERATION [...] Code Type Description Date Performed Performing Physician 35802 CPT-4 PT EVALUATION 05-06-2015 EULOGIO ERICKSON Functional [...]
--- OUTSIDE RECORDS SUMMARY | 2017-03-22 03:07 | XMS REPORT ---
Author Author [facility] Medical Staff Organization [facility] Address [address] [place] [id number] Phone [phone] Care Team Providers Care Customer Resolution Specialist Name Role Phone REGAN HUTSON, EVELYN PP [phone] Summary purpose TRANSITION OF CARE AUTO GENERATION [...] tests and/or laboratory data RESULTS Routine Urinalysis [id number]:15:00 Result Normal Range Units Color YELLOW Clarity Clear Specific [place] 1.010 1.003-1.035 pH 7.0 4.5-8.0 Glucose NEGATIVE [...] 40-70 % Lymph % 34.3 20-40 % [place] % 9.6 0-10.0 % Eos % 0.2 0-7.0 % Baso % 0.3 0-2 % Neutro # 3.5 1.5-7.5 103/uL Lymph # 2.2 0.9-4.0 103/uL [place] # 0.6 0-0.8 103/uL Eos # 0.0 0-0.6 103/uL Baso # 0.0 0-0.1 103/uL Body Fluid :15:00 Result Normal Range Units pH 7.0 4.5-8.0 Radiology Results [id number]:28:00 Abdomen 2 View PACs Image DATE OF [...] document has been electronically Signed by: On: 07-69-492395:50:00 Result Normal Range Units MPV 9.9 7.3-10.4 FL History of procedures No procedures recorded for this patient visit. Functional status Functional Status Finding Observation Time Diet regular 59-66-260704:30 Abdomen Appearance obese 10-07-155251:30 Abdomen tender 32-71-612795:30 Bajwa no :30 Urination normal :30 Quality sym/unlabored :30 Cough absent :30 Secretions no :30 Airway natural :30 Chest Tube no :30 Oxygen no 96-33-272327:00 Temp >100.4 no :30 Temp <96.8 no :30 Chills with rigors no :30 HR > 90bpm no :30 Respirations > 20 no :30 Systolic <90 no :30 headache stiff neck no :30 IV Site Location Left AC 28-00-721750:00 IV Type peripheral [id number]:00 IV Site Information discontinued 47-81-644868:00 IV Site Start Attmpt 1 times 99-27-614494:55 IV Site Acosta 20 [id number]:00 IV Site Appearance WNL :00 IV Site Color clear : IV Site Patent yes : Dressing Type occlusive : Nursing Note Pt is discharged to home in good condition. Pt has HP hydro in hand along with script in hand et instructions. Pt verbalizied an understanding of follow up appt et to schedule it. IV is discontinued with tip intact. : Vital signs Type Value Date Respiration Rate 20breaths per minute : Pulse 66beats per minute : Oxygen Saturation 100% : BP Systolic 113mmHg :00 BP Diastolic 65mmHg : Temperature 98.9F :39 Social history Type Value Smoking Status FORMER SMOKER Treatment Plan No treatment plan text is available for this visit. Hospital discharge instructions Dismissal Condition good Disposition on DC home DC Inst/Educ Give yes Med/Side Effects Rev yes PNE Vac 2015 Flu Vac 2015 Tetanus Vac 2012
--- OUTSIDE RECORDS SUMMARY | 2017-03-22 03:09 | XMS REPORT | Clinical Summary ---
Author Author Admin, MARGRET Organization [facility] Address Unknown Phone Unavailable Allergies, Adverse Reactions, Alerts Allergy Name Reaction Description Start Date Severity Status Provider CHLORHEXIDINE GLUCONATE tongue and gums swollen Critical Active Hoa Otto RMA NORFLEX Rash Critical Active Rodrigo Sarah [employer] JUDGE TRAZODONE HCL sees things Critical Active Dewayne [...] site; multiple sites Sinusitis 461.9 Active Alexis Odraz MD Acute sinusitis, unspecified Abdominal pain, LLQ [...] MG TBDP 1 q4h PRN nausea ONDANSETRON 31719802199 Active Yolande Lindsay MD PhD Active ADULT ASPIRIN EC LOW STRENGTH 81 MG TBEC Take 1 tablet by mouth daily 2014 ASPIRIN 30711343911 No Longer Active Yolande Lindsay MD PhD Active ZOFRAN ODT 4 MG TBDP 1 pill dissolved by mouth every 4 hours if needed for nausea ONDANSETRON 49027829588 No Longer Active Yolande Lindsay MD PhD Active CEFTIN 500 MG TAB 1 twice a day CEFUROXIME AXETIL 94433497502 No Longer Active Yolande Lindsay MD PhD Active ALBUTEROL SULFATE 0.083 % NEB SOLN one vial per nebulizer every 4-6 hours as needed ALBUTEROL SULFATE 73172457942 No Longer Active Alexis Ordaz MD Active DOXYCYCLINE HYCLATE 100 MG CAP 1 cap by mouth twice daily DOXYCYCLINE HYCLATE 04964655571 No Longer Active Yolande Lindsay MD PhD Active CYCLOBENZAPRINE HCL 10 MG TABS 1/2 - 1 tab by mouth three times daily if needed for spasms/pain CYCLOBENZAPRINE HCL 32193043950 No Longer Active Yolande Lindsay MD PhD Active TRILEPTAL 600 MG TABS Take one 1/2 tablet in Am and 1 tablet at night OXCARBAZEPINE 45847394066 Active Yolande Lindsay MD PhD Active AZITHROMYCIN 250 MG TABS 2 pills on day 1, then 1 pill daily x 4 days AZITHROMYCIN 76299932946 No Longer Active Yolande Lindsay MD PhD Active XOPENEX 1.25 MG/3ML NEBU 1 neb every 4 hours if needed for cough/congestion LEVALBUTEROL HCL 56689900595 No Longer Active Yolande Lindsay MD PhD Active DOXYCYCLINE HYCLATE 100 MG TAB 1 tab twice a day for 14 days 2013 DOXYCYCLINE HYCLATE 49256072823 No Longer Active Yolande Lindsay MD PhD Active LEVOTHYROXINE SODIUM 75 MCG TABS Take 1 tab daily LEVOTHYROXINE SODIUM 10184258350 Active Yolande Lindsay MD PhD Active PREVACID 30 MG CPDR Take 1 tablet by mouth daily-PRN LANSOPRAZOLE 70086523498 No Longer Active Yolande Lindsay MD PhD Active PA VITAMIN D-3 2000 UNIT CAPS 1 CAP PO DAILY CHOLECALCIFEROL 07591128593 No Longer Active Yolande Lindsay MD PhD Active CEFDINIR 300 MG CAPS by mouth twice a day CEFDINIR 62496321024 No Longer Active Gab Padron MD Active TOPAMAX 50 MG TABS 1 PO twice daily TOPIRAMATE 60557310539 Active Yolande Lindsay MD PhD Active AZITHROMYCIN 250 MG TABS 2 po qd x 1 day, then 1 po qd x 4 days AZITHROMYCIN 05005520287 No Longer Active Yolande Lindsay MD PhD Active DICLOFENAC SODIUM 75 MG TBEC 1 tablet by q 12 hours PRN headaches DICLOFENAC SODIUM 55593846825 No Longer Active Yolande Lindsay MD PhD Active FLONASE 50 MCG/ACT SUSP 1 spray each nostril am and hs FLUTICASONE PROPIONATE 93116120068 No Longer Active Todd Callaway MD Active ANUSOL-HC 25 MG SUPPOSITORY 1 rectally twice a day as needed for hemorrhoids HYDROCORTISONE JAYDEN (RECTAL) 67719311870 No Longer Active Yloande Lindsay MD PhD Active ANUSOL-HC 25 MG SUPPOSITORY 1 suppository rectally each evening as needed for anal fissure HYDROCORTISONE JAYDEN (RECTAL) 29435611976 No Longer Active LONNIE Iglesias Active VALIUM 5 MG TAB 1 po 30 minutes prior to your MRI DIAZEPAM 84372398941 No Longer Active LONNIE Iglesias Active METHOCARBAMOL 750 MG TABS 1 PO QID PRN METHOCARBAMOL 27132458468 No Longer Active Daphne Wetzel [employer] JUDGE Active NITROSTAT 0.4 MG SUBL as directed NITROGLYCERIN 47382305483 No Longer Active Rodrigo Sarah APRN Active ROBAXIN-750 750 MG TABS 2 four times a day for 3 days as needed for muscle spasm, then 1 four times a day as needed METHOCARBAMOL 91864402350 No Longer Active Rodrigo Sarah APRN Active HYDROCODONE-ACETAMINOPHEN 5-325 MG TABS 1 q 4-6 hrs prn HYDROCODONE-ACETAMINOPHEN 61639049284 No Longer Active Silvestrellnacho Sarah APRN Active VERAPAMIL HCL CR 180 MG CR-TABS TAKE 1 TAB DAILY VERAPAMIL HCL 29219102620 No Longer Active Yolande Lindsay MD PhD Active BACTRIM DS 800-160 MG TAB 1 tab by mouth twice daily TRIMETHOPRIM-SULFAMETHOXAZOLE 44427861011 No Longer Active Yolande Lindsay MD PhD Active NEXIUM 40 MG PACK 1 by mouth daily ESOMEPRAZOLE MAGNESIUM 84717901198 No Longer Active Des Hines MD Active EPIPEN 2-CHARLETTE 0.3 MG/0.3ML OMARI as need for allergic reaction EPINEPHRINE 22276767269 Active Yolande Lindsay MD PhD Active LISINOPRIL 10 MG TABS 1 PO Q D FOR BP LISINOPRIL 64248220470 Active Yolande Lindsay MD PhD Active NEXIUM 40 MG CPDR 1 PO Q D DAY ESOMEPRAZOLE MAGNESIUM 26362370297 No Longer Active Sadia Perry RN Active NEXIUM 40 MG PACK 1 by mouth daily NEXIUM 40 MG PACK ESOMEPRAZOLE MAGNESIUM Inactive VERAPAMIL HCL CR 180 MG CR-TABS TAKE 1 TAB DAILY VERAPAMIL HCL CR 180 MG CR-TABS VERAPAMIL HCL Inactive HYDROCODONE-ACETAMINOPHEN 5-325 MG TABS 1 q 4-6 hrs prn HYDROCODONE-ACETAMINOPHEN 5-325 MG TABS 902433 HYDROCODONE-ACETAMINOPHEN Inactive ROBAXIN-750 750 MG TABS 2 four times a day for 3 days as needed for muscle spasm, then 1 four times a day as needed ROBAXIN-750 750 MG TABS 560453 METHOCARBAMOL Inactive NITROSTAT 0.4 MG SUBL as directed NITROSTAT 0.4 MG SUBL NITROGLYCERIN Inactive METHOCARBAMOL 750 MG TABS 1 PO QID PRN METHOCARBAMOL 750 MG TABS 691283 METHOCARBAMOL Inactive VALIUM 5 MG TAB 1 po 30 minutes prior to your MRI VALIUM 5 MG TAB 061903 DIAZEPAM Inactive ANUSOL-HC 25 MG SUPPOSITORY 1 suppository rectally each evening as needed for anal fissure ANUSOL-HC 25 MG SUPPOSITORY 9497911 HYDROCORTISONE JAYDEN (RECTAL) Inactive ANUSOL-HC 25 MG SUPPOSITORY 1 rectally twice a day as needed for hemorrhoids ANUSOL-HC 25 MG SUPPOSITORY 8521953 HYDROCORTISONE JAYDEN (RECTAL) Inactive FLONASE 50 MCG/ACT SUSP 1 spray each nostril am and hs FLONASE 50 MCG/ACT SUSP 949936 FLUTICASONE PROPIONATE Inactive DICLOFENAC SODIUM 75 MG TBEC 1 tablet by q 12 hours PRN headaches DICLOFENAC SODIUM 75 MG TBEC 590959 DICLOFENAC SODIUM Inactive PA VITAMIN D-3 2000 UNIT CAPS 1 CAP PO DAILY PA VITAMIN D-3 2000 UNIT CAPS CHOLECALCIFEROL Inactive PREVACID 30 MG CPDR Take 1 tablet by mouth daily-PRN PREVACID 30 MG CPDR 648891 LANSOPRAZOLE Inactive DOXYCYCLINE HYCLATE 100 MG TAB 1 tab twice a day for 14 days 2013 DOXYCYCLINE HYCLATE 100 MG TAB 375435 DOXYCYCLINE HYCLATE Inactive XOPENEX 1.25 MG/3ML NEBU 1 neb every 4 hours if needed for cough/congestion XOPENEX 1.25 MG/3ML NEBU LEVALBUTEROL HCL Inactive CYCLOBENZAPRINE HCL 10 MG TABS 1/2 - 1 tab by mouth three times daily if needed for spasms/pain CYCLOBENZAPRINE HCL 10 MG TABS 092339 CYCLOBENZAPRINE HCL Inactive ALBUTEROL SULFATE 0.083 % NEBU SOLN one vial per nebulizer every 4-6 hours as needed ALBUTEROL SULFATE 0.083 % NEBU SOLN 465288 ALBUTEROL SULFATE Inactive CEFTIN 500 MG TAB 1 twice a day CEFTIN 500 MG TAB 612514 CEFUROXIME AXETIL Inactive ZOFRAN ODT 4 MG TBDP 1 pill dissolved by mouth every 4 hours if needed for nausea ZOFRAN ODT 4 MG TBDP 363876 ONDANSETRON Inactive ADULT ASPIRIN EC LOW STRENGTH 81 MG TBEC Take 1 tablet by mouth daily 2014 ADULT ASPIRIN EC LOW STRENGTH 81 MG TBEC 840937 ASPIRIN Inactive BACTRIM DS 800-160 MG TAB 1 tab by mouth twice daily BACTRIM DS 800-160 MG TAB TRIMETHOPRIM-SULFAMETHOXAZOLE Inactive AZITHROMYCIN 250 MG TABS 2 po qd x 1 day, then 1 po qd x 4 days AZITHROMYCIN 250 MG TABS 2702044 AZITHROMYCIN Inactive CEFDINIR 300 MG CAPS by mouth twice a day CEFDINIR 300 MG CAPS 862394 CEFDINIR Inactive AZITHROMYCIN 250 MG TABS 2 pills on day 1, then 1 pill daily x 4 days AZITHROMYCIN 250 MG TABS 4038067 AZITHROMYCIN Inactive DOXYCYCLINE HYCLATE 100 MG CAP 1 cap by mouth twice daily DOXYCYCLINE HYCLATE 100 MG CAP 19890510 DOXYCYCLINE HYCLATE Inactive Immunizations Vaccine Administration Date Value Standard Description Seasonal influenza vaccine, injectable, containing preservative, for > 3 years old (Afluria, FluLaval, Fluzone, Fluvirin, Fluarix, Agriflu(>=18 yo)) Fluzone (>3 yrs.) [[id number]] Influenza, seasonal, injectable influenza immunization (Flu Vax) has been administered Influenza - Unspecified Formulation [CVX88] influenza virus vaccine, unspecified formulation Seasonal influenza vaccine, injectable, containing preservative, for > 3 years old (Afluria, FluLaval, Fluzone, Fluvirin, Fluarix, Agriflu(>=18 yo)) Fluzone (>3 yrs.) [YUE122] Influenza, seasonal, injectable pneumococcal immunization administered Pneumovax 23 [CVX33] pneumococcal polysaccharide vaccine, 23 valent dT (Diphtheria and Tetanus) booster given given Td(adult) unspecified formulation Boostrix (Tetanus toxoid, reduced diphtheria toxoid and acellular pertussis vaccine, adsorbed), booster Boostrix [ETW508] tetanus toxoid, reduced diphtheria toxoid, and acellular [...] Panel - Chemistry sodium, serum 144 mmol/L 701-159 4230/01/21 potassium, serum 4.2 mmol/L 3.5-5.2 chloride, serum [...] Panel - Chemistry sodium, serum 144 mmol/L 201-700 5692/12/15 potassium, serum 5.4 mmol/L 3.5-5.2 chloride, serum [...] dipstick Negative Negative sodium, serum 143 mmol/L 299-351 9902/10/24 potassium, serum 3.9 mmol/L 3.5-5.2 chloride, serum [...] negative Encounters Code Encounter Date Provider Facility CPT-30685 Level 3 Est. Patient 17:03:46 CDT Yolande Lindsay MD [facility]-25743 Level 4 Est. Patient 20:02:13 OPTO MECHANICAL ENGINEER Yolande Lindsay MD [facility]-02210 Level 3 Est. Patient 16:02:07 OPTO MECHANICAL ENGINEER Alexis Ordaz MD [facility]-03382 Level 3 Est. Patient 12:41:24 OPTO MECHANICAL ENGINEER Yolande Lindsay MD [facility]-41898 Level 3 Est. Patient 15:41:20 OPTO MECHANICAL ENGINEER Yolande Lindsay MD [facility]-40755 Level 3 Est. Patient 13:20:02 OPTO MECHANICAL ENGINEER Yolande Lindsay MD [facility]-23425 Level 3 Est. Patient 15:00:38 CDT Jared Og MD [facility]-14575 Level 3 Est. Patient 10:22:32 CDT Yolande Lindsay MD [facility]-04387 Level 3 Est. Patient 17:12:58 CDT Yolande Lindsay MD [facility]-29510 Level 4 Est. Patient 13:30:58 CDT Yolande Lindsay MD [facility] CPT-29613 Level 4 New Patient 09:02:42 CDT Jared Og MD [facility]-43939 Level 3 Est. Patient 08:19:07 CDT Yolande Lindsay MD [facility]43795 Level 3 Est. Patient 12:00:13 OPTO MECHANICAL ENGINEER Gab Padron MD [facility]-81890 Level 3 Est. Patient 16:15:23 OPTO MECHANICAL ENGINEER Yolande Lindsay MD [facility]81994 Level 2 Est. Patient 19:47:15 CDT Yolande Lindsay MD [facility]07091 Level 3 Est. Patient 21:38:31 CDT Yolande Lindsay MD [facility]29661 Level 3 Est. Patient 10:25:12 CDT Adiel PERAZA [facility]-43292 Level 4 Est. Patient 10:51:58 CDT Yolande Lindsay MD [facility]-71654 Level 3 Est. Patient 14:04:55 OPTO MECHANICAL ENGINEER Rodrigo Sarah [facility]-47361 Level 3 Est. Patient 10:46:35 OPTO MECHANICAL ENGINEER Rodrigo Sarah [facility]-82554 Level 3 Est. Patient 14:24:37 OPTO MECHANICAL ENGINEER Yolande Lindsay MD [facility]-72518 Level 3 Est. Patient 17:41:58 OPTO MECHANICAL ENGINEER Yolande Lindsay MD [facility]-42606 Level 2 Est. Patient 22:01:41 OPTO MECHANICAL ENGINEER Rodrigo Sarah [facility]-67274 Level 2 Est. Patient 22:01:11 OPTO MECHANICAL ENGINEER Rodrigo Sarah [facility]-25233 Level 3 Est. Patient 10:12:29 OPTO MECHANICAL ENGINEER Rodrigo Sarah APRN [facility] CPT-98550 Level 3 Est. Patient 11:05:44 CDT Alexis Ordaz MD [facility] CPT-10045 Level 3 Est. Patient 14:57:20 CDT Yolande Lindsay MD [facility] CPT-00127 Level 3 Est. Patient 14:40:57 CDT Yolande Lindsay MD [facility] CPT-37585 Level 3 Est. Patient 20:55:40 CDT Yolande Lindsay MD [facility] CPT-26785 Level 3 Est. Patient 12:42:38 OPTO MECHANICAL ENGINEER Yolande Lindsay MD [facility] CPT-08772 Level 3 Est. Patient 11:54:49 OPTO MECHANICAL ENGINEER Des Hines MD [facility] CPT-70293 Level 3 Est. Patient 17:06:38 CDT Dewayne PERAZA [facility] Procedures Code Procedure Name Date Entry Date Standard Description CPT-J1030 Depo Medrol 40 mg (Methyl Prednisolone Acetate) 17:05: 54 CDT CPT-J1100 Decadron 4mg (Dexamethasone) 17:05:54 CDT CPT-74598 Abx/Therapy Injection 17:05:54 CDT CPT-J1100 Decadron 4mg (Dexamethasone) 16:55:28 CDT CPT-J1030 Depo Medrol 40 mg (Methyl Prednisolone Acetate) 16:55: 28 CDT CPT-27354 Ankle Complete - Min 3V 15:58:50 CDT CPT-87935 Knee 3V 15:58:50 CDT CPT-65832 Hip comp min 2V 15:58:50 CDT CPT-J2270 Morphine Sulfate 10 mg 14:25:44 OPTO MECHANICAL ENGINEER CPT-J2550 Phenergan 12.5 mg (Promethazine) 14:25:44 OPTO MECHANICAL ENGINEER CPT-37327 Abx/Therapy Injection 14:25:44 OPTO MECHANICAL ENGINEER CPT-J2550 Phenergan 12.5 mg (Promethazine) 14:08:03 OPTO MECHANICAL ENGINEER CPT-J2270 Morphine Sulfate 10 mg 14:08:03 OPTO MECHANICAL ENGINEER CPT-90688 Bladder Scan 15:00:38 CDT CPT-TCMM Transitional Care Mgmt-Moderate 09:52:22 CDT CPT-J1030 Depo Medrol 40 mg (Methyl Prednisolone Acetate) 10:55: 18 CDT CPT-J1100 Decadron 4mg (Dexamethasone) 10:55:18 CDT CPT-84287 Abx/Therapy Injection 10:55:18 CDT CPT-J1030 Depo Medrol 40 mg (Methyl Prednisolone Acetate) 10:22: 32 CDT CPT-J1100 Decadron 4mg (Dexamethasone) 10:22:32 CDT CPT-10582 Postop F/U Visit 14:37:13 CDT CPT-41336 Ankle Complete - Min 3V 17:11:58 CDT CPT-33700 Foot comp min 3V 17:11:58 CDT CPT-38441 Bladder Scan 09:56:58 CDT CPT-78898 Postop F/U Visit 09:56:58 CDT CPT-48359 Cystoscopy 09:02:42 CDT CPT-22543 Bladder Scan 09:02:42 CDT CPT-86179 Abd single AP View 16:00:35 CDT CPT-11852 Administration single or combination vaccine inc oral 10 :15:43 CDT CPT-47297 Influenza split virus > age 3 10:15:43 CDT CPT-69684 Nail Avulsion 09:24:57 CDT CPT-OV Office Visit 11:15:41 CDT CPT-45359 Abx/Therapy Injection 10:51:30 CDT CPT-J3301 Kenalog 40 mg (Triamcinolone Acetonide) 10:25:12 CDT CPT-J1100 Decadron 4mg (Dexamethasone) 10:25:12 CDT CPT-73143 Anoscopy diagnostic 10:36:12 CDT CPT-OV Office Visit 15:34:31 CDT CPT-59879 Abx/Therapy Injection 08:21:15 [employer]O MECHANICAL ENGINEER CPT-J1885 Toradol 60 mg (Ketorolac) 10:46:35 OPTO MECHANICAL ENGINEER CPT-OV Office Visit 19:51:16 OPTO MECHANICAL ENGINEER CPT-84798 Spec Collection and Handling Fee 14:34:18 OPTO MECHANICAL ENGINEER CPT-PV Prev. Care Visit 14:19:18 OPTO MECHANICAL ENGINEER CPT-40372 Postop F/U Visit 14:47:51 OPTO MECHANICAL ENGINEER CPT-98084 Postop F/U Visit 15:15:14 OPTO MECHANICAL ENGINEER CPT-31405 Postop F/U Visit 14:41:43 CDT CPT-42748 Postop F/U Visit 15:47:46 CDT CPT-OV Office Visit 15:27:23 CDT CPT-OV Office Visit 17:20:34 CDT CPT-36378 Abx/Therapy Injection 15:05:57 CDT CPT-J1100 Decadron 8mg (Dexamethasone) 14:44:57 CDT CPT-J1040 Depo Medrol 80 mg (Methyl Prednisolone Acetate) 14:44: 57 CDT CPT-JTINJ Joint Injection 10:17:37 CDT CPT-09716 Administration 2+ single or combination vaccines inc oral 13:01:46 OPTO MECHANICAL ENGINEER CPT-74621 Administration single or combination vaccine inc oral 13 :01:46 OPTO MECHANICAL ENGINEER CPT-18375 Pneumovax 13:01:46 OPTO MECHANICAL ENGINEER CPT-68882 Influenza split virus > age 3 13:01:46 OPTO MECHANICAL ENGINEER CPT-27895 Administration single or combination vaccine inc oral 08 :56:49 CDT CPT-25996 Tdap 08:56:49 CDT
--- OUTSIDE RECORDS SUMMARY | 2017-03-22 03:11 | XMS REPORT | Clinical Summary ---
Author Author Admin, MARGRET Organization [employer] Address Unknown Phone Unavailable Allergies, Adverse Reactions, Alerts Allergy Name Reaction Description Start Date Severity Status Provider VALENTIN Critical Active Rodrigo Montemayorl SENIOR SALES ADMINISTRATOR CHLORHEXIDINE GLUCONATE tongue and gums swollen Critical Active Hoa Kabaford RMA NORFLEX Rash Critical Active Rowenaina Farshadzell SENIOR SALES ADMINISTRATOR TRAZODONE HCL sees things Critical Active Dewayne [...] of 412 Active Hoa Otto [facility] Old myocardial infarction Pelvic pain 789.09 Active Yolande Lindsay MD PhD Abdominal pain, other specified site; multiple sites Edema 782.3 Active Yolande Lindsay MD PhD Edema Rash 782.1 Active Yolande Lindsay MD PhD Rash and other nonspecific skin eruption Back pain, lumbar 724.2 Active Gab Padron MD Lumbago Cough 786.2 Active Jillina Tyrel SENIOR SALES ADMINISTRATOR Cough 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 Jillina Frazellilian ZAPATAN 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 Anemia 285.9 Active Gab Padron MD Anemia, unspecified Conjunctivitis 372.30 Active Jillnacho Sarah APRN Conjunctivitis, unspecified Sinusitis 473.9 Active Jillina Frazell SENIOR SALES ADMINISTRATOR Unspecified sinusitis (chronic) Nonspecific syndrome suggestive of viral illness 079.99 Active Rodrigo Sarah SENIOR SALES ADMINISTRATOR Unspecified viral infection Laryngitis 464.00 Active Rodrigo [...] of other, multiple, and unspecified sites, infected FOOT PAIN, RIGHT ICD-729.5 Inactive Yolande Lindsay [...] TOENAIL ICD-703.0 Inactive Yolande Lindasy MD PhD INGROWN TOENAIL ICD-703.0 Inactive Yolande [...] right ICD-719.47 Inactive Yolande Lindsay MD PhD Flank pain [...] 1 tab by mouth twice daily TRIMETHOPRIM-SULFAMETHOXAZOLE 21633600112 No Longer Active Gab Padron MD Active ADVAIR DISKUS 250-50 MCG/DOSE AEPB 1 puff BID FLUTICASONE- SALMETEROL 38306355000 Active Rodrigo Sarah APRN Active LEVOTHYROXINE SODIUM 75 MCG TABS Take 1 tab daily LEVOTHYROXINE SODIUM 77572018312 No Longer Active Mariana Cuadra EDELMIRAA Active SYNTHROID 88 MCG ORAL TABS Take one by mouth daily LEVOTHYROXINE SODIUM 88013727274 Active Mariana HICKEYA Active CHERATUSSIN AC 100-10 MG/5ML SYRP 1 tsp by mouth every 4 hours as needed for cough GUAIFENESIN-CODEINE 53099722151 No Longer Active Gab Padron MD Active POLYTRIM 91867-1.1 UNIT/ML-% SOLN 1 gtt to affected eye q3h x 7 days POLYMYXIN B-TRIMETHOPRIM 08017222119 No Longer Active Gab Padron MD Active FLUTICASONE PROPIONATE 50 MCG/ACT SUSP 1 to 2 sprays each nostril daily 04/21 FLUTICASONE PROPIONATE 22916273928 No Longer Active Gab Padron MD Active TRILEPTAL 600 MG TABS Take one 1 tablet in Am and 1 tablet at night OXCARBAZEPINE 59573008568 Active Gab Padron MD Active CEFDINIR 300 MG CAPS 1 po BID x 10 days CEFDINIR 02494265858 No Longer Active Rodrigo Sarah APRN Active CEFTIN 500 MG TAB 1 twice a day CEFUROXIME AXETIL 39566220913 No Longer Active Gab Padron MD Active AZITHROMYCIN 250 MG TABS 2 po qd x 1 day, then 1 po qd x 4 days AZITHROMYCIN 33435909824 No Longer Active Rodrigo Sarah APRN Active CLARITIN 10 MG TAB 1 tablet by mouth daily as needed for allergies LORATADINE 45277866697 Active Rodrigo Sarah APRN Active OXYCODONE HCL 5 MG ORAL CAPS 1 TAB PO Q HS OXYCODONE HCL 89441769262 No Longer Active Rodrigo Sarah APRN Active NIASPAN 500 MG ORAL CR-TABS 1 pill nightly x 1 week, then 2 pills nightly x 1 week, then 3 pills nightly x 1 week, then 4 pills nightly NIACIN (ANTIHYPERLIPIDEMIC) 10134212227 No Longer Active Rodrigo Sarah APRN Active NIACIN 500 MG TABS 1 pill by mouth nightly x 1 week, then 2 pills x 1 week, then 3 pills x 1 week, then 4 pills nightly - take after evening meal, with applesauce or an apple NIACIN 13994547274 No Longer Active Yolande Lindsay MD PhD Active FISH OIL 1000 MG CAPS 3 pills daily OMEGA-3 FATTY ACIDS 17341225769 Active Yolande Lindsay MD PhD Active TRIAMCINOLONE ACETONIDE 0.1 % CREA apply bid sparingly to rash TRIAMCINOLONE ACETONIDE 08408023955 Active Yolande Lindsay MD PhD Active FUROSEMIDE 20 MG TAB 1 tablet by mouth daily FUROSEMIDE 50907830300 Active Tisha Lambert APRN Active LISINOPRIL 20 MG ORAL TABS 1 tab by mouth daily LISINOPRIL 64579127127 Active Gab Padron MD Active FUROSEMIDE 20 MG TABS 1 pill by mouth daily, for edema FUROSEMIDE 93203440880 No Longer Active Yolande Lindsay MD PhD Active ATORVASTATIN CALCIUM 10 MG TABS 1 pill by mouth daily, for cholesterol 09/06 ATORVASTATIN CALCIUM 49660445494 Active Gab Padron MD Active CALCIUM 600+D PLUS MINERALS 600-400 MG-UNIT ORAL CHEW 1 tab by mouth daily CALCIUM CARBONATE-VIT D-MIN 74081448187 No Longer Active Yolande Lindsay MD PhD Active CYCLOBENZAPRINE HCL 10 MG TABS 1 tablet by mouth three times daily as needed for muscle spasm/pain CYCLOBENZAPRINE HCL 73070021221 Active Yolande Lindsay MD PhD Active ONDANSETRON 4 MG TBDP 1 q4h PRN nausea ONDANSETRON 08269824516 Active Yolande Lindsay MD PhD Active ADULT ASPIRIN EC LOW STRENGTH 81 MG TBEC Take 1 tablet by mouth daily 2014 ASPIRIN 08791089312 No Longer Active Yolande Lindsay MD PhD Active ZOFRAN ODT 4 MG TBDP 1 pill dissolved by mouth every 4 hours if needed for nausea ONDANSETRON 66255391178 No Longer Active Yolande Lindsay MD PhD Active CEFTIN 500 MG TAB 1 twice a day CEFUROXIME AXETIL 49232915022 No Longer Active Yolande Lindsay MD PhD Active ALBUTEROL SULFATE 0.083 % NEBU SOLN one vial per nebulizer every 4-6 hours as needed ALBUTEROL SULFATE 84654083424 No Longer Active Alexis Ordaz MD Active DOXYCYCLINE HYCLATE 100 MG CAP 1 cap by mouth twice daily DOXYCYCLINE HYCLATE 22142887714 No Longer Active Yolande Lindsay MD PhD Active CYCLOBENZAPRINE HCL 10 MG TABS 1/2 - 1 tab by mouth three times daily if needed for spasms/pain CYCLOBENZAPRINE HCL 29238609663 No Longer Active Yolande Lindsay MD PhD Active AZITHROMYCIN 250 MG TABS 2 pills on day 1, then 1 pill daily x 4 days AZITHROMYCIN 02673205035 No Longer Active Yolande Lindsay MD PhD Active XOPENEX 1.25 MG/3ML NEBU 1 neb every 4 hours if needed for cough/congestion LEVALBUTEROL HCL 11463579307 No Longer Active Yolande Lindsay MD PhD Active DOXYCYCLINE HYCLATE 100 MG TAB 1 tab twice a day for 14 days 2013 DOXYCYCLINE HYCLATE 65176860328 No Longer Active Yolande Lindsay MD PhD Active PREVACID 30 MG CPDR Take 1 tablet by mouth daily-PRN LANSOPRAZOLE 60924061580 No Longer Active Yolande Lindsay MD PhD Active PA VITAMIN D-3 2000 UNIT CAPS 1 CAP PO DAILY CHOLECALCIFEROL 47064725163 No Longer Active Yolande Lindsay MD PhD Active CEFDINIR 300 MG CAPS by mouth twice a day CEFDINIR 10013524090 No Longer Active Gab Padron MD Active TOPAMAX 50 MG TABS 1 PO twice daily TOPIRAMATE 70289985758 Active Yolande Lindsay MD PhD Active AZITHROMYCIN 250 MG TABS 2 po qd x 1 day, then 1 po qd x 4 days AZITHROMYCIN 28881729523 No Longer Active Yolande Lindsay MD PhD Active DICLOFENAC SODIUM 75 MG TBEC 1 tablet by q 12 hours PRN headaches DICLOFENAC SODIUM 89600721635 No Longer Active Yolande Lindsay MD PhD Active FLONASE 50 MCG/ACT SUSP 1 spray each nostril am and hs FLUTICASONE PROPIONATE 07503144385 No Longer Active Todd Callaway MD Active ANUSOL-HC 25 MG SUPPOSITORY 1 rectally twice a day as needed for hemorrhoids HYDROCORTISONE JAYDEN (RECTAL) 92741570365 No Longer Active Yolande Lindsay MD PhD Active ANUSOL-HC 25 MG SUPPOSITORY 1 suppository rectally each evening as needed for anal fissure HYDROCORTISONE JAYDEN (RECTAL) 57013568560 No Longer Active LONNIE Iglesisa Active VALIUM 5 MG TAB 1 po 30 minutes prior to your MRI DIAZEPAM 35580339453 No Longer Active LONNIE Iglesias Active METHOCARBAMOL 750 MG TABS 1 PO QID PRN METHOCARBAMOL 59832088444 No Longer Active Daphne Wetzel APRN Active NITROSTAT 0.4 MG SUBL as directed NITROGLYCERIN 91475570140 No Longer Active Rodrigo Sarah APRN Active ROBAXIN-750 750 MG TABS 2 four times a day for 3 days as needed for muscle spasm, then 1 four times a day as needed METHOCARBAMOL 38308826956 No Longer Active Rodrigo Sarah APRN Active HYDROCODONE-ACETAMINOPHEN 5-325 MG TABS 1 q 4-6 hrs prn HYDROCODONE-ACETAMINOPHEN 51578903271 No Longer Active Rodrigo Sarah APRN Active VERAPAMIL HCL CR 180 MG CR-TABS TAKE 1 TAB DAILY VERAPAMIL HCL 71944152335 No Longer Active Yolande Lindsay MD PhD Active BACTRIM DS 800-160 MG TAB 1 tab by mouth twice daily TRIMETHOPRIM-SULFAMETHOXAZOLE 90184056485 No Longer Active Yolande Lindsay MD PhD Active NEXIUM 40 MG PACK 1 by mouth daily ESOMEPRAZOLE MAGNESIUM 74319311144 No Longer Active Des Hines MD Active EPIPEN 2-CHARLETTE 0.3 MG/0.3ML OMARI as need for allergic reaction EPINEPHRINE 50371564664 Active Yolande Lindsay MD PhD Active NEXIUM 40 MG CPDR 1 PO Q D DAY ESOMEPRAZOLE MAGNESIUM 32728441777 No Longer Active Sadia Perry RN Active NEXIUM 40 MG PACK 1 by mouth daily NEXIUM 40 MG PACK ESOMEPRAZOLE MAGNESIUM Inactive VERAPAMIL HCL CR 180 MG CR-TABS TAKE 1 TAB DAILY VERAPAMIL HCL CR 180 MG CR-TABS VERAPAMIL HCL Inactive HYDROCODONE-ACETAMINOPHEN 5-325 MG TABS 1 q 4-6 hrs prn HYDROCODONE-ACETAMINOPHEN 5-325 MG TABS 062386 HYDROCODONE-ACETAMINOPHEN Inactive ROBAXIN-750 750 MG TABS 2 four times a day for 3 days as needed for muscle spasm, then 1 four times a day as needed ROBAXIN-750 750 MG TABS 231943 METHOCARBAMOL Inactive NITROSTAT 0.4 MG SUBL as directed NITROSTAT 0.4 MG SUBL NITROGLYCERIN Inactive METHOCARBAMOL 750 MG TABS 1 PO QID PRN METHOCARBAMOL 750 MG TABS 321553 METHOCARBAMOL Inactive VALIUM 5 MG TAB 1 po 30 minutes prior to your MRI VALIUM 5 MG TAB 310825 DIAZEPAM Inactive ANUSOL-HC 25 MG SUPPOSITORY 1 suppository rectally each evening as needed for anal fissure ANUSOL-HC 25 MG SUPPOSITORY 0360994 HYDROCORTISONE JAYDEN (RECTAL) Inactive ANUSOL-HC 25 MG SUPPOSITORY 1 rectally twice a day as needed for hemorrhoids ANUSOL-HC 25 MG SUPPOSITORY 7610016 HYDROCORTISONE JAYDEN (RECTAL) Inactive FLONASE 50 MCG/ACT SUSP 1 spray each nostril am and hs FLONASE 50 MCG/ACT SUSP 474272 FLUTICASONE PROPIONATE Inactive DICLOFENAC SODIUM 75 MG TBEC 1 tablet by q 12 hours PRN headaches DICLOFENAC SODIUM 75 MG TBEC 479664 DICLOFENAC SODIUM Inactive PA VITAMIN D-3 2000 UNIT CAPS 1 CAP PO DAILY PA VITAMIN D-3 2000 UNIT CAPS CHOLECALCIFEROL Inactive PREVACID 30 MG CPDR Take 1 tablet by mouth daily-PRN PREVACID 30 MG CPDR 270702 LANSOPRAZOLE Inactive DOXYCYCLINE HYCLATE 100 MG TAB 1 tab twice a day for 14 days 2013 DOXYCYCLINE HYCLATE 100 MG TAB 1463547 DOXYCYCLINE HYCLATE Inactive XOPENEX 1.25 MG/3ML NEBU 1 neb every 4 hours if needed for cough/congestion XOPENEX 1.25 MG/3ML NEBU 571765 LEVALBUTEROL HCL Inactive CYCLOBENZAPRINE HCL 10 MG TABS 1/2 - 1 tab by mouth three times daily if needed for spasms/pain CYCLOBENZAPRINE HCL 10 MG TABS 222057 CYCLOBENZAPRINE HCL Inactive ALBUTEROL SULFATE 0.083 % NEBU SOLN one vial per nebulizer every 4-6 hours as needed ALBUTEROL SULFATE 0.083 % NEBU SOLN 459116 ALBUTEROL SULFATE Inactive CEFTIN 500 MG TAB 1 twice a day CEFTIN 500 MG TAB 957690 CEFUROXIME AXETIL Inactive ZOFRAN ODT 4 MG TBDP 1 pill dissolved by mouth every 4 hours if needed for nausea ZOFRAN ODT 4 MG TBDP 445151 ONDANSETRON Inactive ADULT ASPIRIN EC LOW STRENGTH 81 MG TBEC Take 1 tablet by mouth daily 2014 ADULT ASPIRIN EC LOW STRENGTH 81 MG TBEC 476958 ASPIRIN Inactive CALCIUM 600+D PLUS MINERALS 600-400 [...] or an apple NIACIN 500 MG TABS 711624 NIACIN Inactive NIASPAN 500 MG ORAL CR-TABS 1 pill nightly x 1 week, then 2 pills nightly x 1 week, then 3 pills nightly x 1 week, then 4 pills nightly NIASPAN 500 MG ORAL CR-TABS NIACIN (ANTIHYPERLIPIDEMIC) Inactive OXYCODONE HCL 5 MG ORAL CAPS 1 TAB PO Q HS OXYCODONE HCL 5 MG ORAL CAPS 3823658 OXYCODONE HCL Inactive FLUTICASONE PROPIONATE 50 MCG/ACT SUSP 1 to 2 sprays each nostril daily 04/21 FLUTICASONE PROPIONATE 50 MCG/ACT SUSP 640388 FLUTICASONE PROPIONATE Inactive POLYTRIM 51781-6.1 UNIT/ML-% SOLN 1 gtt to affected eye q3h x 7 days POLYTRIM 41884-5.1 UNIT/ML-% SOLN 743522 POLYMYXIN B- TRIMETHOPRIM Inactive CHERATUSSIN AC 100-10 MG/5ML SYRP 1 tsp by mouth every 4 hours as needed for cough CHERATUSSIN AC 100-10 MG/5ML SYRP 557922 GUAIFENESIN-CODEINE Inactive LEVOTHYROXINE SODIUM 75 MCG TABS Take 1 tab daily LEVOTHYROXINE SODIUM 75 MCG TABS 993887 LEVOTHYROXINE SODIUM Inactive BACTRIM DS 800-160 MG TAB 1 tab by mouth twice daily BACTRIM DS 800-160 MG TAB 19820606 TRIMETHOPRIM-SULFAMETHOXAZOLE Inactive AZITHROMYCIN 250 MG TABS 2 po qd x 1 day, then 1 po qd x 4 days AZITHROMYCIN 250 MG TABS 7968783 AZITHROMYCIN Inactive CEFDINIR 300 MG CAPS by mouth twice a day CEFDINIR 300 MG CAPS 20020708 CEFDINIR Inactive AZITHROMYCIN 250 MG TABS 2 pills on day 1, then 1 pill daily x 4 days AZITHROMYCIN 250 MG TABS 7429079 AZITHROMYCIN Inactive DOXYCYCLINE HYCLATE 100 MG CAP 1 cap by mouth twice daily DOXYCYCLINE HYCLATE 100 MG CAP 4195560 DOXYCYCLINE HYCLATE Inactive FUROSEMIDE 20 MG TABS 1 pill by mouth daily, for edema FUROSEMIDE 20 MG TABS 862769 FUROSEMIDE Inactive AZITHROMYCIN 250 MG TABS 2 po qd x 1 day, then 1 po qd x 4 days AZITHROMYCIN 250 MG TABS 0785163 AZITHROMYCIN Inactive CEFTIN 500 MG TAB 1 twice a day CEFTIN 500 MG TAB 763050 CEFUROXIME AXETIL Inactive CEFDINIR 300 MG CAPS [...] Fluvirin, Fluarix, Agriflu(>=18 yo)) Fluzone (>3 yrs.) [HNZ626] Influenza, seasonal, injectable influenza immunization (Flu Vax) has been administered Influenza - Unspecified Formulation [CVX88] influenza virus vaccine, unspecified formulation Seasonal influenza vaccine, injectable, containing preservative, for > 3 years old (Afluria, FluLaval, Fluzone, Fluvirin, Fluarix, Agriflu(>=18 yo)) Fluzone (>3 yrs.) [FIQ418] Influenza, seasonal, injectable pneumococcal immunization administered Pneumovax 23 [CVX33] pneumococcal polysaccharide vaccine, 23 valent dT (Diphtheria and Tetanus) booster given given Td(adult) unspecified formulation Boostrix (Tetanus toxoid, reduced diphtheria toxoid and acellular pertussis vaccine, adsorbed), booster Boostrix [VTS450] tetanus toxoid, reduced diphtheria toxoid, and acellular [...] Cardio IQ Advanced Lipid and Inlammation Panel /22451 - Chemistry cholesterol, serum 148 mg/dL 532-750 2965/09/02 HDL cholesterol, serum 55 mg/dL > OR=46 [...] (L) - Chemistry sodium, serum 145 mmol/L 841-941 4808/09/02 potassium, serum 4.6 mmol/L 3.5-5.2 chloride, serum [...] Rate - Chemistry sodium, serum 139 mmol/L 774-057 1149/03/24 carbon dioxide, venous blood 22.4 mmol/L 21.0-32.0 [...] Negative mg/dL Negative sodium, serum 143 mmol/L 173-979 3383/05/02 carbon dioxide, venous blood 25.6 mmol/L 21.0-32.0 [...] mg/dL Encounters Code Encounter Date Provider Facility CPT-96253 Level 3 Est. Patient 14:18:08 CDT Gab Padron MD [facility] CPT-61083 Level 4 Est. Patient 10:18:54 CDT Gab Padron MD [facility] CPT-66002 Level 3 Est. Patient 11:30:07 CDT [facility] Level 4 Est. Patient 21:02:30 [employer]OM[employer]GGER Gab Padron MD [facility] CPT-89055 Level 3 Est. Patient 11:02:19 [employer]Y LOOM[employer]GGER Gab Padron MD [facility] CPT-77399 Level 4 Est. Patient 22:24:31 DOBBY LOOM[employer] PEGGER Gab Padron MD [facility] CPT-45266 Level 3 Est. Patient 18:33:46 DOBBY LOOM[employer] PEGGER Gab Padron MD [facility] CPT-46079 Level 3 Est. Patient 16:19:11 CDT Yolande Lindsay MD [facility] CPT-95707 Level 3 Est. Patient 18:59:14 CDT Yolande Lindsay MD [facility] CPT-27463 Level 4 Est. Patient 21:29:26 CDT Yolande Lindsay MD [facility]-60319 Level 3 Est. Patient 07:37:45 CDT Yolande Lindsay MD [facility]-25947 Level 3 Est. Patient 17:03:46 CDT Yolande Lindsay MD [facility]-13936 Level 4 Est. Patient 20:02:13 DOBBY LOOM[employer] PEGGER Yolande Lindsay MD [facility]-99298 Level 3 Est. Patient 16:02:07 [employer]GGER Alexis Ordaz MD [facility]-26689 Level 3 Est. Patient 12:41:24 [employer]GGER Yolande Lindsay MD [facility]-03444 Level 3 Est. Patient 15:41:20 [employer]BB[employer]OM[employer] PEGGER Yolande Lindsay MD [facility]-29177 Level 3 Est. Patient 13:20:02 [employer]OM[employer] PEGGER Yolande Lindsay MD [facility]-77748 Level 3 Est. Patient 15:00:38 CDT Jared Og MD [facility]-53248 Level 3 Est. Patient 10:22:32 CDT Yolande Lindsay MD [facility]-20390 Level 3 Est. Patient 17:12:58 CDT Yolande Lindsay MD [facility] CPT-92551 Level 4 Est. Patient 13:30:58 CDT Yolande Lindsay MD [facility] CPT-66642 Level 4 New Patient 09:02:42 CDT Jared Og MD [facility]-94806 Level 3 Est. Patient 08:19:07 CDT Yolande Lindsay MD [facility]-94302 Level 3 Est. Patient 12:00:13 DO[employer] LOOM[employer] PEGGER Gab Padron MD [facility]-91682 Level 3 Est. Patient 16:15:23 [employer]GGER Yolande Lindsay MD [facility]-23320 Level 2 Est. Patient 19:47:15 CDT Yolande Lindsay MD [facility]-74968 Level 3 Est. Patient 21:38:31 CDT Yolande Lindsay MD [facility]-80006 Level 3 Est. Patient 10:25:12 CDT Adiel PERAZA [facility]-57250 Level 4 Est. Patient 10:51:58 CDT Yolande Lindsay MD [facility]-34972 Level 3 Est. Patient 14:04:55 [employer]ER Rodrigo Sarah [facility]-96906 Level 3 Est. Patient 10:46:35 [employer]GGER Rodrigo Sarah [facility]-78317 Level 3 Est. Patient 14:24:37 [employer]GGER Yolande Lindsay MD [facility]-52488 Level 3 Est. Patient 17:41:58 DOBBY LOOM[employer] PEGGER Yolande Lindsay MD [facility]-84137 Level 2 Est. Patient 22:01:41 DOBB[employer]OM[employer] PEGGER Rodrigo Sarah [facility]-28981 Level 2 Est. Patient 22:01:11 DOBB[employer]OM[employer] PEGGER Rodrigo Sarah [facility]-59886 Level 3 Est. Patient 10:12:29 DOBB[employer]GGER Rodrigo Sarah [facility]-49661 Level 3 Est. Patient 11:05:44 CDT Alexis Ordaz MD [facility]-71782 Level 3 Est. Patient 14:57:20 CDT Yolande Lindsay MD [facility]83031 Level 3 Est. Patient 14:40:57 CDT Yolande Lindsay MD PhD [facility] CPT-55977 Level 3 Est. Patient 20:55:40 CDT Yolande Lindsay MD PhD [facility] CPT-19942 Level 3 Est. Patient 12:42:38 DOBBY LOOM[employer] PEGGER Yolande Lindsay MD [facility] CPT-49435 Level 3 Est. Patient 11:54:49 [employer]ER Des Hines MD [facility] CPT-52083 Level 3 Est. Patient 17:06:38 CDT Dewayne PERAZA [facility] Procedures Code Procedure Name Date Entry Date Standard Description CPT-80932 LS spine comp w obliq 13:28:00 DOBBY LO[employer] PEGGER CPT-J1040 Depo Medrol 80 mg (Methyl Prednisolone Acetate) 10:51: 28 [employer]BBY [employer] PEGGER CPT-J1100 Decadron 8mg (Dexamethasone) 10:51:28 [employer]BBY LO[employer] PEGGER CPT-59894 Abx/Therapy Injection 10:51:28 DOBBY LOOM[employer] PEGGER CPT-J1100 Decadron 8mg (Dexamethasone) 21:02:30 DOBBY LOOM[employer] PEGGER CPT-J1040 Depo Medrol 80 mg (Methyl Prednisolone Acetate) 21:02: 30 DOBBY LOOM[employer] PEGGER [id number] Event Monitor - MC Transmission 09:12:32 CDT 08/06 [id number] Event Monitor - MC review and interp 09:12:32 CDT [id number] Event Monitor - MC recording 09:12:32 CDT CPT-73252 EKG Trac and Interp 16:50:22 CDT CPT-J1030 Depo Medrol 40 mg (Methyl Prednisolone Acetate) 17:05: 54 CDT CPT-J1100 Decadron 4mg (Dexamethasone) 17:05:54 CDT CPT-82474 Abx/Therapy Injection 17:05:54 CDT CPT-J1100 Decadron 4mg (Dexamethasone) 16:55:28 CDT CPT-J1030 Depo Medrol 40 mg (Methyl Prednisolone Acetate) 16:55: 28 CDT CPT-15354 Ankle Complete - Min 3V 15:58:50 CDT CPT-63899 Knee 3V 15:58:50 CDT CPT-77891 Hip comp min 2V 15:58:50 CDT CPT-J2270 Morphine Sulfate 10 mg 14:25:44 DOBBY LOOMS PEGGER CPT-J2550 Phenergan 12.5 mg (Promethazine) 14:25:44 DOBBY LOOMS PEGGER CPT-11754 Abx/Therapy Injection 14:25:44 DOBBY LOOMS PEGGER CPT-J2550 Phenergan 12.5 mg (Promethazine) 14:08:03 DOBBY LOOMS PEGGER CPT-J2270 Morphine Sulfate 10 mg 14:08:03 DOBBY LOOMS PEGGER CPT-32162 Bladder Scan 15:00:38 CDT CPT-TCMM Transitional Care Mgmt-Moderate 09:52:22 CDT CPT-J1030 Depo Medrol 40 mg (Methyl Prednisolone Acetate) 10:55: 18 CDT CPT-J1100 Decadron 4mg (Dexamethasone) 10:55:18 CDT CPT-71638 Abx/Therapy Injection 10:55:18 CDT CPT-J1030 Depo Medrol 40 mg (Methyl Prednisolone Acetate) 10:22: 32 CDT CPT-J1100 Decadron 4mg (Dexamethasone) 10:22:32 CDT CPT-68489 Postop F/U Visit 14:37:13 CDT CPT-21850 Ankle Complete - Min 3V 17:11:58 CDT CPT-62558 Foot comp min 3V 17:11:58 CDT CPT-12654 Bladder Scan 09:56:58 CDT CPT-42887 Postop F/U Visit 09:56:58 CDT CPT-70702 Cystoscopy 09:02:42 CDT CPT-28539 Bladder Scan 09:02:42 CDT CPT-67035 Abd single AP View 16:00:35 CDT CPT-71524 Administration single or combination vaccine inc oral 10 :15:43 CDT CPT-27324 Influenza split virus > age 3 10:15:43 CDT CPT-94940 Nail Avulsion 09:24:57 CDT CPT-OV Office Visit 11:15:41 CDT CPT-94769 Abx/Therapy Injection 10:51:30 CDT CPT-J3301 Kenalog 40 mg (Triamcinolone Acetonide) 10:25:12 CDT CPT-J1100 Decadron 4mg (Dexamethasone) 10:25:12 CDT CPT-62355 Anoscopy diagnostic 10:36:12 CDT CPT-OV Office Visit 15:34:31 CDT CPT-20843 Abx/Therapy Injection 08:21:15 DOBBY LOOMS PEGGER CPT-J1885 Toradol 60 mg (Ketorolac) 10:46:35 DOBBY LOOM[employer] PEGGER CPT-OV Office Visit 19:51:16 DOBBY LOOM[employer] PEGGER CPT-77807 Spec Collection and Handling Fee 14:34:18 DOBBY LOOM[employer] PEGGER CPT-PV Prev. Care Visit 14:19:18 DOBBY LOOM[employer] PEGGER CPT-65125 Postop F/U Visit 14:47:51 DOBBY LOOMS PEGGER CPT-17378 Postop F/U Visit 15:15:14 DOBBY LOOMS PEGGER CPT-72490 Postop F/U Visit 14:41:43 CDT CPT-88565 Postop F/U Visit 15:47:46 CDT CPT-OV Office Visit 15:27:23 CDT CPT-OV Office Visit 17:20:34 CDT CPT-83334 Abx/Therapy Injection 15:05:57 CDT CPT-J1100 Decadron 8mg (Dexamethasone) 14:44:57 CDT CPT-J1040 Depo Medrol 80 mg (Methyl Prednisolone Acetate) 14:44: 57 CDT CPT-JTINJ Joint Injection 10:17:37 CDT CPT-50306 Administration 2+ single or combination vaccines inc oral 13:01:46 DOBBY LOOM[employer] PEGGER CPT-53308 Administration single or combination vaccine inc oral 13 :01:46 DOBBY LOOM[employer] PEGGER CPT-38519 Pneumovax 13:01:46 DOBBY LOOMS PEGGER CPT-62924 Influenza split virus > age 3 13:01:46 DOBBY LOOMS PEGGER CPT-05860 Administration single or combination vaccine inc oral 08 :56:49 CDT CPT-66486 Tdap 08:56:49 CDT
--- OUTSIDE RECORDS SUMMARY | 2017-03-22 03:14 | XMS REPORT | Clinical Summary ---
Author Author Admin, MARGRET Organization [employer] Address Unknown Phone Unavailable Allergies, Adverse Reactions, Alerts Allergy Name Reaction Description Start Date Severity Status Provider VALENTIN Critical Active Rodrigo Montemayorl AGRICULTURAL SALES REPRESENTATIVE CHLORHEXIDINE GLUCONATE tongue and gums swollen Critical Active Hoa Kabaford RMA NORFLEX Rash Critical Active Silvestrellina Farshadzell AGRICULTURAL SALES REPRESENTATIVE TRAZODONE HCL sees things Critical Active [...] infarction, hx of 412 Active Hoa Otto [facility] Old myocardial infarction Pelvic pain 789.09 Active Yolande Lindsay MD PhD Abdominal pain, other specified site; multiple sites Edema 782.3 Active Yolande Lindsay MD PhD Edema Rash 782.1 Active Yolande Lindsay MD PhD Rash and other nonspecific skin eruption Back pain, lumbar 724.2 Active Gab Padron MD Lumbago Cough 786.2 Active Jillina Tyrel AGRICULTURAL SALES REPRESENTATIVE Cough 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 Jillina Frazellilian AGRICULTURAL SALES REPRESENTATIVE 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 Anemia 285.9 Active Gab Padron MD Anemia, unspecified Conjunctivitis 372.30 Active Jillina Tyrel AGRICULTURAL SALES REPRESENTATIVE Conjunctivitis, unspecified Sinusitis 473.9 Active Jillina Frazell AGRICULTURAL SALES REPRESENTATIVE Unspecified sinusitis (chronic) Nonspecific syndrome suggestive of viral illness 079.99 Active Rodrigo Sarah APRN Unspecified viral infection Laryngitis 464.00 Active Jillina Tyrel AGRICULTURAL SALES REPRESENTATIVE Acute laryngitis without mention of obstruction [...] Callaway MD FREQUENCY, URINARY ICD-788.41 Inactive Yolande Linsday MD PhD AFTERCARE FLW SURG TEETH ORL [...] right ICD-729.5 Inactive Yolande Lindsay MD PhD ANGIOEDEMA ICD-995.1 Inactive Yolande Lindsay MD PhD RECTAL BLEEDING ICD-569.3 Inactive Yolande Lindsay MD PhD Tick bite [...] 1/2 tab daily for 2 days PREDNISONE 97620927245 Active Gab Padron MD Active ZOFRAN ODT 4 MG TBDP 1 po q6hr PRN Nausea ONDANSETRON 88850301482 Active Rowenaina Tyrel GAUTAM Active IBUPROFEN 600 MG TAB 1 tablet by mouth every 6 hours for 7 days, then 1 tablet every 6 hours as needed. Take with food IBUPROFEN 04102486216 Active Jillina Frazellilian GAUTAM Active BACTRIM DS 800-160 MG TAB 1 tab by mouth twice daily TRIMETHOPRIM-SULFAMETHOXAZOLE 28733886334 No Longer Active Gab Padron MD Active ADVAIR DISKUS 250-50 MCG/DOSE AEPB 1 puff BID FLUTICASONE- SALMETEROL 37679318565 Active Rodrigo Sarah APRN Active LEVOTHYROXINE SODIUM 75 MCG TABS Take 1 tab daily LEVOTHYROXINE SODIUM 93340348222 No Longer Active Mariana HICKEYA Active SYNTHROID 88 MCG ORAL TABS Take one by mouth daily LEVOTHYROXINE SODIUM 29849374034 Active Mariana HICKEYA Active CHERATUSSIN AC 100-10 MG/5ML SYRP 1 tsp by mouth every 4 hours as needed for cough GUAIFENESIN-CODEINE 94759547160 No Longer Active Gab Padron MD Active POLYTRIM 24957-6.1 UNIT/ML-% SOLN 1 gtt to affected eye q3h x 7 days POLYMYXIN B-TRIMETHOPRIM 88055865954 No Longer Active Gab Padron MD Active FLUTICASONE PROPIONATE 50 MCG/ACT SUSP 1 to 2 sprays each nostril daily 04/21 FLUTICASONE PROPIONATE 34897885350 No Longer Active Gab Padron MD Active TRILEPTAL 600 MG TABS Take one 1 tablet in Am and 1 tablet at night OXCARBAZEPINE 56688389975 Active Gab Padron MD Active CEFDINIR 300 MG CAPS 1 po BID x 10 days CEFDINIR 86401701610 No Longer Active Rodrigo Sarah APRN Active CEFTIN 500 MG TAB 1 twice a day CEFUROXIME AXETIL 68416606490 No Longer Active Gab Padron MD Active AZITHROMYCIN 250 MG TABS 2 po qd x 1 day, then 1 po qd x 4 days AZITHROMYCIN 78214538867 No Longer Active Silvestrellnacho Sarah APRN Active CLARITIN 10 MG TAB 1 tablet by mouth daily as needed for allergies LORATADINE 34636927823 Active Silvestrellnacho Sarah APRN Active OXYCODONE HCL 5 MG ORAL CAPS 1 TAB PO Q HS OXYCODONE HCL 03354123560 No Longer Active Rodrigo Sarah APRN Active NIASPAN 500 MG ORAL CR-TABS 1 pill nightly x 1 week, then 2 pills nightly x 1 week, then 3 pills nightly x 1 week, then 4 pills nightly NIACIN (ANTIHYPERLIPIDEMIC) 99481075632 No Longer Active Silvestrebernabe Yenhossein AGRICULTURAL SALES REPRESENTATIVE Active NIACIN 500 MG TABS 1 pill by mouth nightly x 1 week, then 2 pills x 1 week, then 3 pills x 1 week, then 4 pills nightly - take after evening meal, with applesauce or an apple NIACIN 79581472211 No Longer Active Yolande Lindsay MD PhD Active FISH OIL 1000 MG CAPS 3 pills daily OMEGA-3 FATTY ACIDS 10509992325 Active Yolande Lindsay MD PhD Active TRIAMCINOLONE ACETONIDE 0.1 % CREA apply bid sparingly to rash TRIAMCINOLONE ACETONIDE 15388400367 Active Yolande Lindsay MD PhD Active FUROSEMIDE 20 MG TAB 1 tablet by mouth daily FUROSEMIDE 13642922256 Active Tisha Lambert APRN Active LISINOPRIL 20 MG ORAL TABS 1 tab by mouth daily LISINOPRIL 25907723509 Active Gab Padron MD Active FUROSEMIDE 20 MG TABS 1 pill by mouth daily, for edema FUROSEMIDE 64022292707 No Longer Active Yolande Lindsay MD PhD Active ATORVASTATIN CALCIUM 10 MG TABS 1 pill by mouth daily, for cholesterol 09/06 ATORVASTATIN CALCIUM 77135153464 Active Gab Padron MD Active CALCIUM 600+D PLUS MINERALS 600-400 MG-UNIT ORAL CHEW 1 tab by mouth daily CALCIUM CARBONATE-VIT D-MIN 90903522561 No Longer Active Yolande Lindsay MD PhD Active CYCLOBENZAPRINE HCL 10 MG TABS 1 tablet by mouth three times daily as needed for muscle spasm/pain CYCLOBENZAPRINE HCL 82403688557 Active Yolande Lindsay MD PhD Active ONDANSETRON 4 MG TBDP 1 q4h PRN nausea ONDANSETRON 65821658058 Active Yolande Lindsay MD PhD Active ADULT ASPIRIN EC LOW STRENGTH 81 MG TBEC Take 1 tablet by mouth daily 2014 ASPIRIN 69684575918 No Longer Active Yolande Lindsay MD PhD Active ZOFRAN ODT 4 MG TBDP 1 pill dissolved by mouth every 4 hours if needed for nausea ONDANSETRON 93280315981 No Longer Active Yolande Lindsay MD PhD Active CEFTIN 500 MG TAB 1 twice a day CEFUROXIME AXETIL 42849751797 No Longer Active Yolande iLndsay MD PhD Active ALBUTEROL SULFATE 0.083 % NEBU SOLN one vial per nebulizer every 4-6 hours as needed ALBUTEROL SULFATE 24287467448 No Longer Active Alexis Ordaz MD Active DOXYCYCLINE HYCLATE 100 MG CAP 1 cap by mouth twice daily DOXYCYCLINE HYCLATE 56972626267 No Longer Active Yolande Lindsay MD PhD Active CYCLOBENZAPRINE HCL 10 MG TABS 1/2 - 1 tab by mouth three times daily if needed for spasms/pain CYCLOBENZAPRINE HCL 95252961347 No Longer Active Yolande Lindsay MD PhD Active AZITHROMYCIN 250 MG TABS 2 pills on day 1, then 1 pill daily x 4 days AZITHROMYCIN 08022012369 No Longer Active Yolande Lindsay MD PhD Active XOPENEX 1.25 MG/3ML NEBU 1 neb every 4 hours if needed for cough/congestion LEVALBUTEROL HCL 73368526134 No Longer Active Yolande Lindsay MD PhD Active DOXYCYCLINE HYCLATE 100 MG TAB 1 tab twice a day for 14 days 2013 DOXYCYCLINE HYCLATE 01023260536 No Longer Active Yolande Lindsay MD PhD Active PREVACID 30 MG CPDR Take 1 tablet by mouth daily-PRN LANSOPRAZOLE 09727998926 No Longer Active Yolande Lindsay MD PhD Active PA VITAMIN D-3 2000 UNIT CAPS 1 CAP PO DAILY CHOLECALCIFEROL 17168883553 No Longer Active Yolande Lindsay MD PhD Active CEFDINIR 300 MG CAPS by mouth twice a day CEFDINIR 52019016534 No Longer Active Gab Padron MD Active TOPAMAX 50 MG TABS 1 PO twice daily TOPIRAMATE 71839593989 Active Yolande Lindsay MD PhD Active AZITHROMYCIN 250 MG TABS 2 po qd x 1 day, then 1 po qd x 4 days AZITHROMYCIN 53272291297 No Longer Active Yolande Lindsay MD PhD Active DICLOFENAC SODIUM 75 MG TBEC 1 tablet by q 12 hours PRN headaches DICLOFENAC SODIUM 03884255716 No Longer Active Yolande Lindsay MD PhD Active FLONASE 50 MCG/ACT SUSP 1 spray each nostril am and hs FLUTICASONE PROPIONATE 58259045092 No Longer Active Todd Callaway MD Active ANUSOL-HC 25 MG SUPPOSITORY 1 rectally twice a day as needed for hemorrhoids HYDROCORTISONE JAYDEN (RECTAL) 17049544960 No Longer Active Yolande Lindsay MD PhD Active ANUSOL-HC 25 MG SUPPOSITORY 1 suppository rectally each evening as needed for anal fissure HYDROCORTISONE JAYDEN (RECTAL) 98455753922 No Longer Active LONNIE Iglesias Active VALIUM 5 MG TAB 1 po 30 minutes prior to your MRI DIAZEPAM 99184379321 No Longer Active LONNIE Iglesias Active METHOCARBAMOL 750 MG TABS 1 PO QID PRN METHOCARBAMOL 57486440988 No Longer Active Daphne Wetzel APRN Active NITROSTAT 0.4 MG SUBL as directed NITROGLYCERIN 18578617326 No Longer Active Rodrigo Sarah APRN Active ROBAXIN-750 750 MG TABS 2 four times a day for 3 days as needed for muscle spasm, then 1 four times a day as needed METHOCARBAMOL 44543109227 No Longer Active Rodrigo Sarah APRN Active HYDROCODONE-ACETAMINOPHEN 5-325 MG TABS 1 q 4-6 hrs prn HYDROCODONE-ACETAMINOPHEN 27718711392 No Longer Active Rodrigo Sarah AGRICULTURAL SALES REPRESENTATIVE Active VERAPAMIL HCL CR 180 MG CR-TABS TAKE 1 TAB DAILY VERAPAMIL HCL 21395770173 No Longer Active Yolande Lindsay MD PhD Active BACTRIM DS 800-160 MG TAB 1 tab by mouth twice daily TRIMETHOPRIM-SULFAMETHOXAZOLE 35936649411 No Longer Active Yolande Lindsay MD PhD Active NEXIUM 40 MG PACK 1 by mouth daily ESOMEPRAZOLE MAGNESIUM 75793939318 No Longer Active Des Hines MD Active EPIPEN 2-CHARLETTE 0.3 MG/0.3ML OMARI as need for allergic reaction EPINEPHRINE 71758419332 Active Yolande Lindsay MD PhD Active NEXIUM 40 MG CPDR 1 PO Q D DAY ESOMEPRAZOLE MAGNESIUM 55888726912 No Longer Active Sadia Perry RN Active NEXIUM 40 MG PACK 1 by mouth daily NEXIUM 40 MG PACK ESOMEPRAZOLE MAGNESIUM Inactive VERAPAMIL HCL CR 180 MG CR-TABS TAKE 1 TAB DAILY VERAPAMIL HCL CR 180 MG CR-TABS VERAPAMIL HCL Inactive HYDROCODONE-ACETAMINOPHEN 5-325 MG TABS 1 q 4-6 hrs prn HYDROCODONE-ACETAMINOPHEN 5-325 MG TABS 462007 HYDROCODONE-ACETAMINOPHEN Inactive ROBAXIN-750 750 MG TABS 2 four times a day for 3 days as needed for muscle spasm, then 1 four times a day as needed ROBAXIN-750 750 MG TABS 670482 METHOCARBAMOL Inactive NITROSTAT 0.4 MG SUBL as directed NITROSTAT 0.4 MG SUBL NITROGLYCERIN Inactive METHOCARBAMOL 750 MG TABS 1 PO QID PRN METHOCARBAMOL 750 MG TABS 666453 METHOCARBAMOL Inactive VALIUM 5 MG TAB 1 po 30 minutes prior to your MRI VALIUM 5 MG TAB 176087 DIAZEPAM Inactive ANUSOL-HC 25 MG SUPPOSITORY 1 suppository rectally each evening as needed for anal fissure ANUSOL-HC 25 MG SUPPOSITORY 8085237 HYDROCORTISONE JAYDEN (RECTAL) Inactive ANUSOL-HC 25 MG SUPPOSITORY 1 rectally twice a day as needed for hemorrhoids ANUSOL-HC 25 MG SUPPOSITORY 2967781 HYDROCORTISONE JAYDEN (RECTAL) Inactive FLONASE 50 MCG/ACT SUSP 1 spray each nostril am and hs FLONASE 50 MCG/ACT SUSP FLUTICASONE PROPIONATE Inactive DICLOFENAC SODIUM 75 MG TBEC 1 tablet by q 12 hours PRN headaches DICLOFENAC SODIUM 75 MG TBEC 629208 DICLOFENAC SODIUM Inactive PA VITAMIN D-3 2000 UNIT CAPS 1 CAP PO DAILY PA VITAMIN D-3 2000 UNIT CAPS CHOLECALCIFEROL Inactive PREVACID 30 MG CPDR Take 1 tablet by mouth daily-PRN PREVACID 30 MG CPDR 069161 LANSOPRAZOLE Inactive DOXYCYCLINE HYCLATE 100 MG TAB 1 tab twice a day for 14 days 2013 DOXYCYCLINE HYCLATE 100 MG TAB 9602347 DOXYCYCLINE HYCLATE Inactive XOPENEX 1.25 MG/3ML NEBU 1 neb every 4 hours if needed for cough/congestion XOPENEX 1.25 MG/3ML NEBU 152922 LEVALBUTEROL HCL Inactive CYCLOBENZAPRINE HCL 10 MG TABS 1/2 - 1 tab by mouth three times daily if needed for spasms/pain CYCLOBENZAPRINE HCL 10 MG TABS 949738 CYCLOBENZAPRINE HCL Inactive ALBUTEROL SULFATE 0.083 % NEBU SOLN one vial per nebulizer every 4-6 hours as needed ALBUTEROL SULFATE 0.083 % NEBU SOLN 027275 ALBUTEROL SULFATE Inactive CEFTIN 500 MG TAB 1 twice a day CEFTIN 500 MG TAB 606480 CEFUROXIME AXETIL Inactive ZOFRAN ODT 4 MG TBDP 1 pill dissolved by mouth every 4 hours if needed for nausea ZOFRAN ODT 4 MG TBDP 968578 ONDANSETRON Inactive ADULT ASPIRIN EC LOW STRENGTH 81 MG TBEC Take 1 tablet by mouth daily 2014 ADULT ASPIRIN EC LOW STRENGTH 81 MG TBEC 095443 ASPIRIN Inactive CALCIUM 600+D PLUS MINERALS 600-400 [...] or an apple NIACIN 500 MG TABS 355249 NIACIN Inactive NIASPAN 500 MG ORAL CR-TABS 1 pill nightly x 1 week, then 2 pills nightly x 1 week, then 3 pills nightly x 1 week, then 4 pills nightly NIASPAN 500 MG ORAL CR-TABS NIACIN (ANTIHYPERLIPIDEMIC) Inactive OXYCODONE HCL 5 MG ORAL CAPS 1 TAB PO Q HS OXYCODONE HCL 5 MG ORAL CAPS 6287590 OXYCODONE HCL Inactive FLUTICASONE PROPIONATE 50 MCG/ACT SUSP 1 to 2 sprays each nostril daily 04/21 FLUTICASONE PROPIONATE 50 MCG/ACT SUSP 206739 FLUTICASONE PROPIONATE Inactive POLYTRIM 08848-5.1 UNIT/ML-% SOLN 1 gtt to affected eye q3h x 7 days POLYTRIM 36226-5.1 UNIT/ML-% SOLN 127554 POLYMYXIN B- TRIMETHOPRIM Inactive CHERATUSSIN AC 100-10 MG/5ML SYRP 1 tsp by mouth every 4 hours as needed for cough CHERATUSSIN AC 100-10 MG/5ML SYRP 066859 GUAIFENESIN-CODEINE Inactive LEVOTHYROXINE SODIUM 75 MCG TABS Take 1 tab daily LEVOTHYROXINE SODIUM 75 MCG TABS 104115 LEVOTHYROXINE SODIUM Inactive BACTRIM DS 800-160 MG TAB 1 tab by mouth twice daily BACTRIM DS 800-160 MG TAB 19820606 TRIMETHOPRIM-SULFAMETHOXAZOLE Inactive AZITHROMYCIN 250 MG TABS 2 po qd x 1 day, then 1 po qd x 4 days AZITHROMYCIN 250 MG TABS 9131980 AZITHROMYCIN Inactive CEFDINIR 300 MG CAPS by mouth twice a day CEFDINIR 300 MG CAPS 20020708 CEFDINIR Inactive AZITHROMYCIN 250 MG TABS 2 pills on day 1, then 1 pill daily x 4 days AZITHROMYCIN 250 MG TABS 3643757 AZITHROMYCIN Inactive DOXYCYCLINE HYCLATE 100 MG CAP 1 cap by mouth twice daily DOXYCYCLINE HYCLATE 100 MG CAP 8699403 DOXYCYCLINE HYCLATE Inactive FUROSEMIDE 20 MG TABS 1 pill by mouth daily, for edema FUROSEMIDE 20 MG TABS 389967 FUROSEMIDE Inactive AZITHROMYCIN 250 MG TABS 2 po qd x 1 day, then 1 po qd x 4 days AZITHROMYCIN 250 MG TABS 0520328 AZITHROMYCIN Inactive CEFTIN 500 MG TAB 1 twice a day CEFTIN 500 MG TAB 532333 CEFUROXIME AXETIL Inactive CEFDINIR 300 MG CAPS [...] Fluvirin, Fluarix, Agriflu(>=18 yo)) Fluzone (>3 yrs.) [NLA816] Influenza, seasonal, injectable influenza immunization (Flu Vax) has been administered Influenza - Unspecified Formulation [CVX88] influenza virus vaccine, unspecified formulation Seasonal influenza vaccine, injectable, containing preservative, for > 3 years old (Afluria, FluLaval, Fluzone, Fluvirin, Fluarix, Agriflu(>=18 yo)) Fluzone (>3 yrs.) [FOI362] Influenza, seasonal, injectable pneumococcal immunization administered Pneumovax 23 [CVX33] pneumococcal polysaccharide vaccine, 23 valent dT (Diphtheria and Tetanus) booster given given Td(adult) unspecified formulation Boostrix (Tetanus toxoid, reduced diphtheria toxoid and acellular pertussis vaccine, adsorbed), booster Boostrix [VHL301] tetanus toxoid, reduced diphtheria toxoid, and acellular [...] Panel - Chemistry sodium, serum 142 mmol/L 738-625 5920/06/30 urea nitrogen, blood 18 mg/dL 7-18 creatinine, serum 1.31 mg/dL 0.55-1.30 potassium, serum 4.4 mmol/L 3.5-5.2 chloride, serum 108 mmol/L 98-107 carbon dioxide, venous blood 25.1 mmol/L 21.0-32.0 blood glucose 82 mg/dL 65-110 calcium, serum 9.1 mg/dL 8.5-10.1 Lab Report: [facility] Advanced Lipid and Inlammation Panel /66425 - Chemistry cholesterol, serum 148 mg/dL 393-253 1485/09/02 HDL cholesterol, serum 55 mg/dL > OR=46 [...] % 11.6-14.8 platelet count 179 10^3/MM^3 10*3/mm3 678-136 0874/03/24 neutrophils as percent of blood leukocytes 64.0 [...] (L) - Chemistry sodium, serum 145 mmol/L 311-701 1327/09/02 potassium, serum 4.6 mmol/L 3.5-5.2 chloride, serum [...] Rate - Chemistry sodium, serum 139 mmol/L 358-200 0839/03/24 carbon dioxide, venous blood 22.4 mmol/L 21.0-32.0 [...] 8.5-10.1 bilirubin, serum, total 0.30 mg/dL 0.00-1.00 chloride, serum 108 mmol/L 98-107 creatinine, serum 1.21 mg/dL 0.55-1.30 alanine aminotransferase (SGPT), serum 32 U/L 12-78 aspartate aminotransferase (SGOT), serum 18 U/L 15-37 TSH 0.63 m[iU]/mL 0.36-3.74 thyroxine, serum, free 0.80 ng/dL 0.76-1.46 blood glucose 70 mg/dL 65-110 sodium, serum 143 mmol/L 934-472 5156/05/02 carbon dioxide, venous blood 25.6 mmol/L 21.0-32.0 potassium, serum 4.8 mmol/L 3.5-5.2 urea nitrogen, blood 20 mg/dL 7-18 protein, total urine random Negative mg/dL Negative [...] Panel - Chemistry sodium, serum 142 mmol/L 899-340 2393/07/18 carbon dioxide, venous blood 27.8 mmol/L 21.0-32.0 [...] mg/dL Encounters Code Encounter Date Provider Facility CPT-66939 Level 3 Est. Patient 11:01:51 CDT Gab Padron MD [facility] CPT-59885 Level 3 Est. Patient 15:27:02 CDT Jared Og MD [facility] CPT-41981 Level 4 Est. Patient 09:25:27 CDT Gab Padron MD [facility]-38205 Level 3 Est. Patient 10:29:41 CDT Rodrigo Sarah [facility]-90989 Level 4 Est. Patient 17:51:05 CDT Gab Padron MD [facility]-24215 Level 3 Est. Patient 14:18:08 CDT Gab Padron MD [facility]-14574 Level 4 Est. Patient 10:18:54 CDT Gab Padron MD [facility]-52885 Level 3 Est. Patient 11:30:07 CDT Rodrigo Sarah [facility] CPT-41070 Level 4 Est. Patient 21:02:30 DUMPSTER OPERATOR Gab Padron MD [facility]-50085 Level 3 Est. Patient 11:02:19 DUMPSTER OPERATOR Gab Padron MD [facility] CPT-43235 Level 4 Est. Patient 22:24:31 DUMPSTER OPERATOR Gab Padron MD [facility] CPT-63278 Level 3 Est. Patient 18:33:46 DUMPSTER OPERATOR Gab Padron MD [facility] CPT-51542 Level 3 Est. Patient 16:19:11 CDT Yolande Lindsay MD [facility]-65271 Level 3 Est. Patient 18:59:14 CDT Yolande Lindsay MD [facility]-66918 Level 4 Est. Patient 21:29:26 CDT Yolande Lindsay MD PhD [facility] CPT-01814 Level 3 Est. Patient 07:37:45 CDT Yolande Lindsay MD [facility]-21508 Level 3 Est. Patient 17:03:46 CDT Yolande Lindsay MD [facility]-45072 Level 4 Est. Patient 20:02:13 DUMPSTER OPERATOR Yolande Lindsay MD [facility]-82436 Level 3 Est. Patient 16:02:07 DUMPSTER OPERATOR Alexis Ordaz MD [facility]-39486 Level 3 Est. Patient 12:41:24 DUMPSTER OPERATOR Yolande Lindsay MD [facility]-95377 Level 3 Est. Patient 15:41:20 DUMPSTER OPERATOR Yolande Lindsay MD [facility]-76655 Level 3 Est. Patient 13:20:02 DUMPSTER OPERATOR Yolande Lindsay MD [facility]-10815 Level 3 Est. Patient 15:00:38 CDT Jared Og MD [facility]-39380 Level 3 Est. Patient 10:22:32 CDT Yolande Lindsay MD [facility]-65426 Level 3 Est. Patient 17:12:58 CDT Yolande Lindsay MD [facility] CPT-59650 Level 4 Est. Patient 13:30:58 CDT Yolande Lindsay MD [facility] CPT-38727 Level 4 New Patient 09:02:42 CDT Jared Og MD [facility]-24950 Level 3 Est. Patient 08:19:07 CDT Yolande Lindsay MD [facility]-46835 Level 3 Est. Patient 12:00:13 DUMPSTER OPERATOR Gab Padron MD [facility]-93190 Level 3 Est. Patient 16:15:23 DUMPSTER OPERATOR Yolande Lindsay MD [facility]-16558 Level 2 Est. Patient 19:47:15 CDT Yolande Lindsay MD [facility]-31048 Level 3 Est. Patient 21:38:31 CDT Yolande Lindsay MD [facility]-07245 Level 3 Est. Patient 10:25:12 CDT Adiel PERAZA [facility]-37426 Level 4 Est. Patient 10:51:58 CDT Yolande Lindsay MD [facility]-27444 Level 3 Est. Patient 14:04:55 DUMPSTER OPERATOR Rodrigo Sarah [facility]-37068 Level 3 Est. Patient 10:46:35 DUMPSTER OPERATOR Rodrigo Sarah [facility]-14999 Level 3 Est. Patient 14:24:37 DUMPSTER OPERATOR Yolande Lindsay MD [facility]-23580 Level 3 Est. Patient 17:41:58 DUMPSTER OPERATOR Yolande Lindsay MD [facility]-89215 Level 2 Est. Patient 22:01:41 DUMPSTER OPERATOR Rodrigo Sarah [facility]-59685 Level 2 Est. Patient 22:01:11 DUMPSTER OPERATOR Rodrigo Sarah [facility]-55064 Level 3 Est. Patient 10:12:29 DUMPSTER OPERATOR Rodrigo Sarah [facility]-67882 Level 3 Est. Patient 11:05:44 CDT Alexis Ordaz MD [facility]60588 Level 3 Est. Patient 14:57:20 CDT Yolande Lindsay MD [facility]-08771 Level 3 Est. Patient 14:40:57 CDT Yolande Lindsay MD PhD [facility] CPT-94908 Level 3 Est. Patient 20:55:40 CDT Yolande Lindsay MD PhD [facility] CPT-30314 Level 3 Est. Patient 12:42:38 DUMPSTER OPERATOR Yolande Lindsay MD PhD [facility] CPT-81533 Level 3 Est. Patient 11:54:49 DUMPSTER OPERATOR Des Hines MD [facility] CPT-96876 Level 3 Est. Patient 17:06:38 CDT Dewayne PERAZA [facility] Procedures Code Procedure Name Date Entry Date Standard Description CPT-04811 Foot, left, comp min 3V - XRAY USE ONLY 09:24:54 CDT CPT-66764 Abd single AP View - XRAY USE ONLY 11:16:17 CDT CPT-52902 T spine AP/ Lat - XRAY USE ONLY 09:34:21 CDT CPT-45658 Chest 2V Frontal and Lat - XRAY USE ONLY 10:48:51 CDT CPT-67961 LS spine comp w obliq 13:28:00 DUMPSTER OPERATOR CPT-J1040 Depo Medrol 80 mg (Methyl Prednisolone Acetate) 10:51: 28 DUMPSTER OPERATOR CPT-J1100 Decadron 8mg (Dexamethasone) 10:51:28 DUMPSTER OPERATOR CPT-30793 Abx/Therapy Injection 10:51:28 DUMPSTER OPERATOR CPT-J1100 Decadron 8mg (Dexamethasone) 21:02:30 DUMPSTER OPERATOR CPT-J1040 Depo Medrol 80 mg (Methyl Prednisolone Acetate) 21:02: 30 DUMPSTER OPERATOR [id number] Event Monitor - MC Transmission 09:12:32 CDT 08/06 [id number] Event Monitor - MC review and interp 09:12:32 CDT [id number] Event Monitor - MC recording 09:12:32 CDT CPT-56016 EKG Trac and Interp 16:50:22 CDT CPT-J1030 Depo Medrol 40 mg (Methyl Prednisolone Acetate) 17:05: 54 CDT CPT-J1100 Decadron 4mg (Dexamethasone) 17:05:54 CDT CPT-82440 Abx/Therapy Injection 17:05:54 CDT CPT-J1100 Decadron 4mg (Dexamethasone) 16:55:28 CDT CPT-J1030 Depo Medrol 40 mg (Methyl Prednisolone Acetate) 16:55: 28 CDT CPT-94014 Ankle Complete - Min 3V 15:58:50 CDT CPT-62494 Knee 3V 15:58:50 CDT CPT-92822 Hip comp min 2V 15:58:50 CDT CPT-J2270 Morphine Sulfate 10 mg 14:25:44 DUMPSTER OPERATOR CPT-J2550 Phenergan 12.5 mg (Promethazine) 14:25:44 DUMPSTER OPERATOR CPT-18487 Abx/Therapy Injection 14:25:44 DUMPSTER OPERATOR CPT-J2550 Phenergan 12.5 mg (Promethazine) 14:08:03 DUMPSTER OPERATOR CPT-J2270 Morphine Sulfate 10 mg 14:08:03 DUMPSTER OPERATOR CPT-44708 Bladder Scan 15:00:38 CDT CPT-TCMM Transitional Care Mgmt-Moderate 09:52:22 CDT CPT-J1030 Depo Medrol 40 mg (Methyl Prednisolone Acetate) 10:55: 18 CDT CPT-J1100 Decadron 4mg (Dexamethasone) 10:55:18 CDT CPT-05402 Abx/Therapy Injection 10:55:18 CDT CPT-J1030 Depo Medrol 40 mg (Methyl Prednisolone Acetate) 10:22: 32 CDT CPT-J1100 Decadron 4mg (Dexamethasone) 10:22:32 CDT CPT-61451 Postop F/U Visit 14:37:13 CDT CPT-78075 Ankle Complete - Min 3V 17:11:58 CDT CPT-06551 Foot comp min 3V 17:11:58 CDT CPT-98774 Bladder Scan 09:56:58 CDT CPT-45024 Postop F/U Visit 09:56:58 CDT CPT-42487 Cystoscopy 09:02:42 CDT CPT-05358 Bladder Scan 09:02:42 CDT CPT-17662 Abd single AP View 16:00:35 CDT CPT-16296 Administration single or combination vaccine inc oral 10 :15:43 CDT CPT-12983 Influenza split virus > age 3 10:15:43 CDT CPT-75725 Nail Avulsion 09:24:57 CDT CPT-OV Office Visit 11:15:41 CDT CPT-24852 Abx/Therapy Injection 10:51:30 CDT CPT-J3301 Kenalog 40 mg (Triamcinolone Acetonide) 10:25:12 CDT CPT-J1100 Decadron 4mg (Dexamethasone) 10:25:12 CDT CPT-05303 Anoscopy diagnostic 10:36:12 CDT CPT-OV Office Visit 15:34:31 CDT CPT-04969 Abx/Therapy Injection 08:21:15 DUMPSTER OPERATOR CPT-J1885 Toradol 60 mg (Ketorolac) 10:46:35 DUMPSTER OPERATOR CPT-OV Office Visit 19:51:16 DUMPSTER OPERATOR CPT-37518 Spec Collection and Handling Fee 14:34:18 DUMPSTER OPERATOR CPT-PV Prev. Care Visit 14:19:18 DUMPSTER OPERATOR CPT-74704 Postop F/U Visit 14:47:51 DUMPSTER OPERATOR CPT-24692 Postop F/U Visit 15:15:14 DUMPSTER OPERATOR CPT-34646 Postop F/U Visit 14:41:43 CDT CPT-48353 Postop F/U Visit 15:47:46 CDT CPT-OV Office Visit 15:27:23 CDT CPT-OV Office Visit 17:20:34 CDT CPT-41687 Abx/Therapy Injection 15:05:57 CDT CPT-J1100 Decadron 8mg (Dexamethasone) 14:44:57 CDT CPT-J1040 Depo Medrol 80 mg (Methyl Prednisolone Acetate) 14:44: 57 CDT CPT-JTINJ Joint Injection 10:17:37 CDT CPT-99586 Administration 2+ single or combination vaccines inc oral 13:01:46 DUMPSTER OPERATOR CPT-00621 Administration single or combination vaccine inc oral 13 :01:46 DUMPSTER OPERATOR CPT-81249 Pneumovax 13:01:46 DUMPSTER OPERATOR CPT-06273 Influenza split virus > age 3 13:01:46 DUMPSTER OPERATOR CPT-80654 Administration single or combination vaccine inc oral 08 :56:49 CDT CPT-87708 Tdap 08:56:49 CDT
--- OUTSIDE RECORDS SUMMARY | 2017-03-22 03:16 | XMS REPORT | Clinical Summary ---
Author Author Admin, MARGRET Organization [facility] Address Unknown Phone Unavailable Allergies, Adverse Reactions, Alerts Allergy Name Reaction Description Start Date Severity Status Provider CHLORHEXIDINE GLUCONATE tongue and gums swollen Critical Active Hoa Otto RMA NORFLEX Rash Critical Active Rodrigo Sarah FRAMEMAN TRAZODONE HCL sees things Critical Active Dewayne [...] Lindsay MD PhD FISSURE, ANAL ICD-565.0 Inactive Yolnade Lindsay MD PhD CHEST PAIN, UNSPECIFIED ICD-786.50 [...] ICD-530.81 Inactive Yolande Lindsay MD PhD 07/16 INGROWN TOENAIL ICD-703.0 Inactive Yolande Lindsay MD [...] fall ICD-E888.9 Inactive Yolande Lindsay MD PhD 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 Inactive Yolande Lindsay MD PhD URI ICD-465.9 Inactive Yolande Lindsay MD PhD Hip pain, left ICD-719.45 Inactive Yolande Lindsay MD PhD Knee sprain, left ICD-844.9 Inactive Yolande Lindsay MD PhD Ankle sprain, left ICD-845.00 Inactive Yolande Lindsay MD PhD Medication List Medication Instructions Start Date Stop Date Generic Name NDC Status Provider Patient Instruction TRIAMCINOLONE ACETONIDE 0.1 % CREA apply bid sparingly to rash TRIAMCINOLONE ACETONIDE 10300177462 Active Yolande Lindsay MD PhD Active FUROSEMIDE 20 MG TAB 1 tablet by mouth daily FUROSEMIDE 50084150495 Active Yolande Lindsay MD PhD Active LISINOPRIL 20 MG ORAL TABS 1 tab by mouth daily LISINOPRIL 04030663295 Active Yolande Lindsay MD PhD Active FUROSEMIDE 20 MG TABS 1 pill by mouth daily, for edema FUROSEMIDE 34798714586 No Longer Active Yolande Lindsay MD PhD Active FISH OIL 1000 MG CAPS 1 pill daily x 1 week, then 2 pills daily x 1 week, then 3 pills daily x 1 week, then 4 pills daily OMEGA-3 FATTY ACIDS 32957996662 Active Yolande Lindsya MD PhD Active NIACIN 500 MG TABS 1 pill by mouth nightly x 1 week, then 2 pills x 1 week, then 3 pills x 1 week, then 4 pills nightly - take after evening meal, with applesauce or an apple NIACIN 50261676575 Active Yolande Lindsay MD PhD Active ATORVASTATIN CALCIUM 10 MG TABS 1 pill by mouth daily, for cholesterol 09/06 ATORVASTATIN CALCIUM 83410326222 Active Yolande Lindsay MD PhD Active CALCIUM 600+D PLUS MINERALS 600-400 MG-UNIT ORAL CHEW 1 tab by mouth daily CALCIUM CARBONATE-VIT D-MIN 46260659196 No Longer Active Yolande Lindsay MD PhD Active CYCLOBENZAPRINE HCL 10 MG TABS 1 tablet by mouth three times daily as needed for muscle spasm/pain CYCLOBENZAPRINE HCL 17033435497 Active Yolande Lindsay MD PhD Active ONDANSETRON 4 MG TBDP 1 q4h PRN nausea ONDANSETRON 10208560264 Active Yolande Lindsay MD PhD Active ADULT ASPIRIN EC LOW STRENGTH 81 MG TBEC Take 1 tablet by mouth daily 2014 ASPIRIN 09961394316 No Longer Active Yolande Lindsay MD PhD Active ZOFRAN ODT 4 MG TBDP 1 pill dissolved by mouth every 4 hours if needed for nausea ONDANSETRON 96973637522 No Longer Active Yolande Lindsay MD PhD Active CEFTIN 500 MG TAB 1 twice a day CEFUROXIME AXETIL 10439310387 No Longer Active Yolande Lindsay MD PhD Active ALBUTEROL SULFATE 0.083 % NEBU SOLN one vial per nebulizer every 4-6 hours as needed ALBUTEROL SULFATE 37684912556 No Longer Active Alexis Ordaz MD Active DOXYCYCLINE HYCLATE 100 MG CAP 1 cap by mouth twice daily DOXYCYCLINE HYCLATE 88417206010 No Longer Active Yolande Lindsay MD PhD Active CYCLOBENZAPRINE HCL 10 MG TABS 1/2 - 1 tab by mouth three times daily if needed for spasms/pain CYCLOBENZAPRINE HCL 22377970886 No Longer Active Yolande Lindsay MD PhD Active TRILEPTAL 600 MG TABS Take one 1/2 tablet in Am and 1 tablet at night OXCARBAZEPINE 11463182620 Active Yolande Lindsay MD PhD Active AZITHROMYCIN 250 MG TABS 2 pills on day 1, then 1 pill daily x 4 days AZITHROMYCIN 97052177898 No Longer Active Yolande Lindsay MD PhD Active XOPENEX 1.25 MG/3ML NEBU 1 neb every 4 hours if needed for cough/congestion LEVALBUTEROL HCL 19484975644 No Longer Active Yolande Lindsay MD PhD Active DOXYCYCLINE HYCLATE 100 MG TAB 1 tab twice a day for 14 days 2013 DOXYCYCLINE HYCLATE 06106222469 No Longer Active Yolande Lindsay MD PhD Active LEVOTHYROXINE SODIUM 75 MCG TABS Take 1 tab daily LEVOTHYROXINE SODIUM 22750124080 Active Yolande Lindsay MD PhD Active PREVACID 30 MG CPDR Take 1 tablet by mouth daily-PRN LANSOPRAZOLE 73699081657 No Longer Active Yolande Lindsay MD PhD Active PA VITAMIN D-3 2000 UNIT CAPS 1 CAP PO DAILY CHOLECALCIFEROL 99267352721 No Longer Active Yolande Lindsay MD PhD Active CEFDINIR 300 MG CAPS by mouth twice a day CEFDINIR 64587849371 No Longer Active Gab Padron MD Active TOPAMAX 50 MG TABS 1 PO twice daily TOPIRAMATE 26166794759 Active Yolande Lindsay MD PhD Active AZITHROMYCIN 250 MG TABS 2 po qd x 1 day, then 1 po qd x 4 days AZITHROMYCIN 21362484465 No Longer Active Yolande Lindsay MD PhD Active DICLOFENAC SODIUM 75 MG TBEC 1 tablet by q 12 hours PRN headaches DICLOFENAC SODIUM 12921994361 No Longer Active Yolande Lindsay MD PhD Active FLONASE 50 MCG/ACT SUSP 1 spray each nostril am and hs FLUTICASONE PROPIONATE 31754788003 No Longer Active Todd Callaway MD Active ANUSOL-HC 25 MG SUPPOSITORY 1 rectally twice a day as needed for hemorrhoids HYDROCORTISONE JAYDEN (RECTAL) 08604493725 No Longer Active Yolande Lindsay MD PhD Active ANUSOL-HC 25 MG SUPPOSITORY 1 suppository rectally each evening as needed for anal fissure HYDROCORTISONE JAYDEN (RECTAL) 82296540242 No Longer Active LONNIE Iglesias Active VALIUM 5 MG TAB 1 po 30 minutes prior to your MRI DIAZEPAM 54993428091 No Longer Active LONNIE Iglesias Active METHOCARBAMOL 750 MG TABS 1 PO QID PRN METHOCARBAMOL 76142927247 No Longer Active Daphne Wetzel APRN Active NITROSTAT 0.4 MG SUBL as directed NITROGLYCERIN 46586132550 No Longer Active Rodrigo Sarah APRN Active ROBAXIN-750 750 MG TABS 2 four times a day for 3 days as needed for muscle spasm, then 1 four times a day as needed METHOCARBAMOL 33499773326 No Longer Active Rodrigo Sarah APRN Active HYDROCODONE-ACETAMINOPHEN 5-325 MG TABS 1 q 4-6 hrs prn HYDROCODONE-ACETAMINOPHEN 16361135806 No Longer Active Rodrigo Sarah APRN Active VERAPAMIL HCL CR 180 MG CR-TABS TAKE 1 TAB DAILY VERAPAMIL HCL 98165039100 No Longer Active Yolande Lindsay MD PhD Active BACTRIM DS 800-160 MG TAB 1 tab by mouth twice daily TRIMETHOPRIM-SULFAMETHOXAZOLE 52261971685 No Longer Active Yolande Lindsay MD PhD Active NEXIUM 40 MG PACK 1 by mouth daily ESOMEPRAZOLE MAGNESIUM 01428991983 No Longer Active Des Hines MD Active EPIPEN 2-CHARLETTE 0.3 MG/0.3ML OMARI as need for allergic reaction EPINEPHRINE 78803322905 Active Yolande Lindsay MD PhD Active NEXIUM 40 MG CPDR 1 PO Q D DAY ESOMEPRAZOLE MAGNESIUM 40400835067 No Longer Active Sadia Perry RN Active NEXIUM 40 MG PACK 1 by mouth daily NEXIUM 40 MG PACK ESOMEPRAZOLE MAGNESIUM Inactive VERAPAMIL HCL CR 180 MG CR-TABS TAKE 1 TAB DAILY VERAPAMIL HCL CR 180 MG CR-TABS VERAPAMIL HCL Inactive HYDROCODONE-ACETAMINOPHEN 5-325 MG TABS 1 q 4-6 hrs prn HYDROCODONE-ACETAMINOPHEN 5-325 MG TABS 761534 HYDROCODONE-ACETAMINOPHEN Inactive ROBAXIN-750 750 MG TABS 2 four times a day for 3 days as needed for muscle spasm, then 1 four times a day as needed ROBAXIN-750 750 MG TABS 816306 METHOCARBAMOL Inactive NITROSTAT 0.4 MG SUBL as directed NITROSTAT 0.4 MG SUBL NITROGLYCERIN Inactive METHOCARBAMOL 750 MG TABS 1 PO QID PRN METHOCARBAMOL 750 MG TABS 408945 METHOCARBAMOL Inactive VALIUM 5 MG TAB 1 po 30 minutes prior to your MRI VALIUM 5 MG TAB 887026 DIAZEPAM Inactive ANUSOL-HC 25 MG SUPPOSITORY 1 suppository rectally each evening as needed for anal fissure ANUSOL-HC 25 MG SUPPOSITORY 4967535 HYDROCORTISONE JAYDEN (RECTAL) Inactive ANUSOL-HC 25 MG SUPPOSITORY 1 rectally twice a day as needed for hemorrhoids ANUSOL-HC 25 MG SUPPOSITORY 6377097 HYDROCORTISONE JAYDEN (RECTAL) Inactive FLONASE 50 MCG/ACT SUSP 1 spray each nostril am and hs FLONASE 50 MCG/ACT SUSP FLUTICASONE PROPIONATE Inactive DICLOFENAC SODIUM 75 MG TBEC 1 tablet by q 12 hours PRN headaches DICLOFENAC SODIUM 75 MG TBEC 409676 DICLOFENAC SODIUM Inactive PA VITAMIN D-3 2000 UNIT CAPS 1 CAP PO DAILY PA VITAMIN D-3 2000 UNIT CAPS CHOLECALCIFEROL Inactive PREVACID 30 MG CPDR Take 1 tablet by mouth daily-PRN PREVACID 30 MG CPDR 214208 LANSOPRAZOLE Inactive DOXYCYCLINE HYCLATE 100 MG TAB 1 tab twice a day for 14 days 2013 DOXYCYCLINE HYCLATE 100 MG TAB 0165363 DOXYCYCLINE HYCLATE Inactive XOPENEX 1.25 MG/3ML NEBU 1 neb every 4 hours if needed for cough/congestion XOPENEX 1.25 MG/3ML NEBU 609923 LEVALBUTEROL HCL Inactive CYCLOBENZAPRINE HCL 10 MG TABS 1/2 - 1 tab by mouth three times daily if needed for spasms/pain CYCLOBENZAPRINE HCL 10 MG TABS 310259 CYCLOBENZAPRINE HCL Inactive ALBUTEROL SULFATE 0.083 % NEBU SOLN one vial per nebulizer every 4-6 hours as needed ALBUTEROL SULFATE 0.083 % NEBU SOLN 209226 ALBUTEROL SULFATE Inactive CEFTIN 500 MG TAB 1 twice a day CEFTIN 500 MG TAB 475141 CEFUROXIME AXETIL Inactive ZOFRAN ODT 4 MG TBDP 1 pill dissolved by mouth every 4 hours if needed for nausea ZOFRAN ODT 4 MG TBDP 955728 ONDANSETRON Inactive ADULT ASPIRIN EC LOW STRENGTH 81 MG TBEC Take 1 tablet by mouth daily 2014 ADULT ASPIRIN EC LOW STRENGTH 81 MG TBEC 803153 ASPIRIN Inactive CALCIUM 600+D PLUS MINERALS 600-400 [...] x 4 days AZITHROMYCIN 250 MG TABS 5312281 AZITHROMYCIN Inactive CEFDINIR 300 MG CAPS by mouth twice a day CEFDINIR 300 MG CAPS 200922 CEFDINIR Inactive AZITHROMYCIN 250 MG TABS 2 pills on day 1, then 1 pill daily x 4 days AZITHROMYCIN 250 MG TABS 3699550 AZITHROMYCIN Inactive DOXYCYCLINE HYCLATE 100 MG CAP 1 cap by mouth twice daily DOXYCYCLINE HYCLATE 100 MG CAP 1953060 DOXYCYCLINE HYCLATE Inactive FUROSEMIDE 20 MG TABS 1 pill by mouth daily, for edema FUROSEMIDE 20 MG TABS 385140 FUROSEMIDE Inactive Immunizations Vaccine Administration Date Value Standard Description Seasonal influenza vaccine, injectable, containing preservative, for > 3 years old (Afluria, FluLaval, Fluzone, Fluvirin, Fluarix, Agriflu(>=18 yo)) Fluzone (>3 yrs.) [ZBT601] Influenza, seasonal, injectable influenza immunization (Flu Vax) has been administered Influenza - Unspecified Formulation [CVX88] influenza virus vaccine, unspecified formulation pneumococcal immunization administered Pneumovax 23 [CVX33] pneumococcal polysaccharide vaccine, 23 valent Seasonal influenza vaccine, injectable, containing preservative, for > 3 years old (Afluria, FluLaval, Fluzone, Fluvirin, Fluarix, Agriflu(>=18 yo)) Fluzone (>3 yrs.) [CKL793] Influenza, seasonal, injectable dT (Diphtheria and Tetanus) booster given given Td(adult) unspecified formulation Boostrix (Tetanus toxoid, reduced diphtheria toxoid and acellular pertussis vaccine, adsorbed), booster Boostrix [IAQ126] tetanus toxoid, reduced diphtheria toxoid, and acellular [...] mg/dL Chart Maintenance: Outside labs entered on [employer] - Hematology leukocyte count, blood 6.1 10*3/mm3 hemoglobin, blood 11.0 g/dL platelet count 175 10*3/mm3 Lab Report: Basic Metabolic Panel - Chemistry sodium, serum 145 mmol/L 475-516 4953/06/22 potassium, serum 3.9 mmol/L 3.5-5.2 chloride, serum 109 mmol/L 98-107 carbon dioxide, venous blood 23.4 mmol/L 21.0-32.0 blood glucose 92 mg/dL 65-110 calcium, serum 8.2 mg/dL 8.5-10.1 urea nitrogen, blood 24 mg/dL 7-18 creatinine, serum 1.30 mg/dL 0.60-1.30 Lab Report: Card[facility] IQ Advanced Lipid and Inlammation Panel /58789 - Chemistry cholesterol, serum 198 mg/dL 502-166 4437/04/30 HDL cholesterol, serum 65 mg/dL > OR=46 triglyceride, serum, fasting 82 mg/dL LDL cholesterol, serum 117 mg/dL cholesterol/HDL ratio, serum 3.0 calc < OR=5.0 Lab Report: CBC W/DIFF, Basic Metabolic Panel - Chemistry sodium, serum 144 mmol/L 657-566 5677/01/21 potassium, serum 4.2 mmol/L 3.5-5.2 chloride, serum [...] Panel - Chemistry sodium, serum 144 mmol/L 116-650 3827/12/15 potassium, serum 5.4 mmol/L 3.5-5.2 chloride, serum [...] UA - Chemistry sodium, serum 143 mmol/L 451-775 4332/10/24 potassium, serum 3.9 mmol/L 3.5-5.2 chloride, serum [...] (L) - Chemistry sodium, serum 145 mmol/L 199-263 6677/09/02 potassium, serum 4.6 mmol/L 3.5-5.2 chloride, serum [...] 51 mg/dL 30-200 cholesterol, serum 173 mg/dL 152-067 3239/04/28 HDL cholesterol, serum 63 mg/dL 32-96 LDL [...] 0-19 Encounters Code Encounter Date Provider Facility CPT-91729 Level 3 Est. Patient 18:59:14 CDT Yolande Lindsay MD [facility] CPT-27221 Level 4 Est. Patient 21:29:26 CDT Yolande Lindsay MD [facility] CPT-79763 Level 3 Est. Patient 07:37:45 CDT Yolande Lindsay MD [facility]-62217 Level 3 Est. Patient 17:03:46 CDT Yolande Lindsay MD [facility] CPT-06770 Level 4 Est. Patient 20:02:13 STORE SHOPPER Yolande Lindsay MD [facility] CPT-21665 Level 3 Est. Patient 16:02:07 STORE SHOPPER Alexis Ordaz MD [facility] CPT-70369 Level 3 Est. Patient 12:41:24 STORE SHOPPER Yolande Lindsay MD [facility] CPT-02316 Level 3 Est. Patient 15:41:20 STORE SHOPPER Yolande Lindsay MD [facility] CPT-89088 Level 3 Est. Patient 13:20:02 STORE SHOPPER Yolande Lindsay MD [facility] CPT-53152 Level 3 Est. Patient 15:00:38 CDT Jared Og MD [facility]-16223 Level 3 Est. Patient 10:22:32 CDT Yolande Lindsay MD [facility] CPT-91071 Level 3 Est. Patient 17:12:58 CDT Yolande Lindsay MD [facility] CPT-93709 Level 4 Est. Patient 13:30:58 CDT Yolande Lindsay MD [facility] CPT-81584 Level 4 New Patient 09:02:42 CDT Jared Og MD [facility]-19607 Level 3 Est. Patient 08:19:07 CDT Yolande Lindsay MD [facility]-75107 Level 3 Est. Patient 12:00:13 STORE SHOPPER Gab Padron MD [facility]-31378 Level 3 Est. Patient 16:15:23 STORE SHOPPER Yolande Lindsay MD [facility]-96797 Level 2 Est. Patient 19:47:15 CDT Yolande Lindsay MD [facility]-23819 Level 3 Est. Patient 21:38:31 CDT Yolande Lindsay MD [facility]-04602 Level 3 Est. Patient 10:25:12 CDT Adiel PERAZA [facility] CPT-01318 Level 4 Est. Patient 10:51:58 CDT Yolande Lindsay MD [facility]-21780 Level 3 Est. Patient 14:04:55 STORE SHOPPER Rodrigo Sarah [facility]-22587 Level 3 Est. Patient 10:46:35 STORE SHOPPER Rodrigo Sarah [facility] CPT-17040 Level 3 Est. Patient 14:24:37 STORE SHOPPER Yolande Lindsay MD PhD [facility]-95733 Level 3 Est. Patient 17:41:58 STORE SHOPPER Yolande Lindsay MD [facility]-00256 Level 2 Est. Patient 22:01:41 STORE SHOPPER Rodrigo Sarah [facility]-53147 Level 2 Est. Patient 22:01:11 STORE SHOPPER Rodrigo Sarah [facility] CPT-20588 Level 3 Est. Patient 10:12:29 STORE SHOPPER Rodrigo Sarah [facility] CPT-63199 Level 3 Est. Patient 11:05:44 CDT Alexis Ordaz MD [facility] CPT-89520 Level 3 Est. Patient 14:57:20 CDT Yolande Lindsay MD [facility] CPT-51933 Level 3 Est. Patient 14:40:57 CDT Yolande Lindsay MD [facility] CPT-16448 Level 3 Est. Patient 20:55:40 CDT Yolande Lindsay MD [facility] CPT-62272 Level 3 Est. Patient 12:42:38 STORE SHOPPER Yolande Lindsay MD [facility] CPT-17022 Level 3 Est. Patient 11:54:49 STORE SHOPPER Des Hines MD [facility] CPT-32427 Level 3 Est. Patient 17:06:38 CDT Dewayne PERAZA [facility] Procedures Code Procedure Name Date Entry Date Standard Description [id number] Event Monitor - MC Transmission 09:12:32 CDT 08/06 [id number] Event Monitor - MC review and interp 09:12:32 CDT [id number] Event Monitor - MC recording 09:12:32 CDT CPT-61573 EKG Trac and Interp 16:50:22 CDT CPT-J1030 Depo Medrol 40 mg (Methyl Prednisolone Acetate) 17:05: 54 CDT CPT-J1100 Decadron 4mg (Dexamethasone) 17:05:54 CDT CPT-58090 Abx/Therapy Injection 17:05:54 CDT CPT-J1100 Decadron 4mg (Dexamethasone) 16:55:28 CDT CPT-J1030 Depo Medrol 40 mg (Methyl Prednisolone Acetate) 16:55: 28 CDT CPT-89406 Ankle Complete - Min 3V 15:58:50 CDT CPT-69731 Knee 3V 15:58:50 CDT CPT-06090 Hip comp min 2V 15:58:50 CDT CPT-J2270 Morphine Sulfate 10 mg 14:25:44 STORE SHOPPER CPT-J2550 Phenergan 12.5 mg (Promethazine) 14:25:44 STORE SHOPPER CPT-42384 Abx/Therapy Injection 14:25:44 STORE SHOPPER CPT-J2550 Phenergan 12.5 mg (Promethazine) 14:08:03 STORE SHOPPER CPT-J2270 Morphine Sulfate 10 mg 14:08:03 STORE SHOPPER CPT-58889 Bladder Scan 15:00:38 CDT CPT-TCMM Transitional Care Mgmt-Moderate 09:52:22 CDT CPT-J1030 Depo Medrol 40 mg (Methyl Prednisolone Acetate) 10:55: 18 CDT CPT-J1100 Decadron 4mg (Dexamethasone) 10:55:18 CDT CPT-17902 Abx/Therapy Injection 10:55:18 CDT CPT-J1030 Depo Medrol 40 mg (Methyl Prednisolone Acetate) 10:22: 32 CDT CPT-J1100 Decadron 4mg (Dexamethasone) 10:22:32 CDT CPT-11793 Postop F/U Visit 14:37:13 CDT CPT-52008 Ankle Complete - Min 3V 17:11:58 CDT CPT-55535 Foot comp min 3V 17:11:58 CDT CPT-96729 Bladder Scan 09:56:58 CDT CPT-33332 Postop F/U Visit 09:56:58 CDT CPT-74366 Cystoscopy 09:02:42 CDT CPT-09562 Bladder Scan 09:02:42 CDT CPT-23864 Abd single AP View 16:00:35 CDT CPT-88391 Administration single or combination vaccine inc oral 10 :15:43 CDT CPT-68717 Influenza split virus > age 3 10:15:43 CDT CPT-96190 Nail Avulsion 09:24:57 CDT CPT-OV Office Visit 11:15:41 CDT CPT-31143 Abx/Therapy Injection 10:51:30 CDT CPT-J3301 Kenalog 40 mg (Triamcinolone Acetonide) 10:25:12 CDT CPT-J1100 Decadron 4mg (Dexamethasone) 10:25:12 CDT CPT-00950 Anoscopy diagnostic 10:36:12 CDT CPT-OV Office Visit 15:34:31 CDT CPT-84161 Abx/Therapy Injection 08:21:15 STORE SHOPPER CPT-J1885 Toradol 60 mg (Ketorolac) 10:46:35 STORE SHOPPER CPT-OV Office Visit 19:51:16 STORE SHOPPER CPT-97532 Spec Collection and Handling Fee 14:34:18 STORE SHOPPER CPT-PV Prev. Care Visit 14:19:18 STORE SHOPPER CPT-90914 Postop F/U Visit 14:47:51 STORE SHOPPER CPT-07568 Postop F/U Visit 15:15:14 STORE SHOPPER CPT-30094 Postop F/U Visit 14:41:43 CDT CPT-04603 Postop F/U Visit 15:47:46 CDT CPT-OV Office Visit 15:27:23 CDT CPT-OV Office Visit 17:20:34 CDT CPT-47598 Abx/Therapy Injection 15:05:57 CDT CPT-J1100 Decadron 8mg (Dexamethasone) 14:44:57 CDT CPT-J1040 Depo Medrol 80 mg (Methyl Prednisolone Acetate) 14:44: 57 CDT CPT-JTINJ Joint Injection 10:17:37 CDT CPT-72406 Administration 2+ single or combination vaccines inc oral 13:01:46 STORE SHOPPER CPT-50036 Administration single or combination vaccine inc oral 13 :01:46 STORE SHOPPER CPT-79858 Pneumovax 13:01:46 STORE SHOPPER CPT-95488 Influenza split virus > age 3 13:01:46 STORE SHOPPER CPT-60267 Administration single or combination vaccine inc oral 08 :56:49 CDT CPT-26398 Tdap 08:56:49 CDT
--- OUTSIDE RECORDS SUMMARY | 2017-03-22 03:18 | XMS REPORT | Clinical Summary ---
Author Author Admin, MARGRET Rhoades [facility] Address Unknown Phone Unavailable Allergies, Adverse Reactions, Alerts Allergy Name Reaction Description Start Date Severity Status Provider CHLORHEXIDINE GLUCONATE tongue and gums swollen Critical Active Hoa Otto RMA NORFLEX Rash Critical Active Rodrigo Sarah PEDIATRIC REGISTERED NURSE TRAZODONE HCL sees things Critical [...] tab by mouth daily CALCIUM CARBONATE-VIT D-MIN 73424546175 Active Yolande Lindsay MD PhD Active ONDANSETRON 4 MG TBDP 1 q4h PRN nausea ONDANSETRON 73658035302 Active Yolande Lindsay MD PhD Active ADULT ASPIRIN EC LOW STRENGTH 81 MG TBEC Take 1 tablet by mouth daily 2014 ASPIRIN 07025120267 No Longer Active Yolande Lindsay MD PhD Active ZOFRAN ODT 4 MG TBDP 1 pill dissolved by mouth every 4 hours if needed for nausea ONDANSETRON 54940209069 No Longer Active Yolande Lindsay MD PhD Active CEFTIN 500 MG TAB 1 twice a day CEFUROXIME AXETIL 55447577897 No Longer Active Yolande Lindsay MD PhD Active ALBUTEROL SULFATE 0.083 % NEBU SOLN one vial per nebulizer every 4-6 hours as needed ALBUTEROL SULFATE 28941925971 No Longer Active Alexis Ordaz MD Active DOXYCYCLINE HYCLATE 100 MG CAP 1 cap by mouth twice daily DOXYCYCLINE HYCLATE 20430827220 No Longer Active Yolande Lindsay MD PhD Active CYCLOBENZAPRINE HCL 10 MG TABS 1/2 - 1 tab by mouth three times daily if needed for spasms/pain CYCLOBENZAPRINE HCL 73014963964 No Longer Active Yolande Lindsay MD PhD Active TRILEPTAL 600 MG TABS Take one 1/2 tablet in Am and 1 tablet at night OXCARBAZEPINE 24739672440 Active Yolande Lindsay MD PhD Active AZITHROMYCIN 250 MG TABS 2 pills on day 1, then 1 pill daily x 4 days AZITHROMYCIN 61839221572 No Longer Active Yolande Lindsay MD PhD Active XOPENEX 1.25 MG/3ML NEBU 1 neb every 4 hours if needed for cough/congestion LEVALBUTEROL HCL 94997378833 No Longer Active Yolande Lindsay MD PhD Active DOXYCYCLINE HYCLATE 100 MG TAB 1 tab twice a day for 14 days 2013 DOXYCYCLINE HYCLATE 14608361427 No Longer Active Yolande Lindsay MD PhD Active LEVOTHYROXINE SODIUM 75 MCG TABS Take 1 tab daily LEVOTHYROXINE SODIUM 96790381780 Active Yolande Lindsay MD PhD Active PREVACID 30 MG CPDR Take 1 tablet by mouth daily-PRN LANSOPRAZOLE 97245039081 No Longer Active Yolande Lindsay MD PhD Active PA VITAMIN D-3 2000 UNIT CAPS 1 CAP PO DAILY CHOLECALCIFEROL 30172513749 No Longer Active Yolande Lindsay MD PhD Active CEFDINIR 300 MG CAPS by mouth twice a day CEFDINIR 06994323062 No Longer Active Gba Padron MD Active TOPAMAX 50 MG TABS 1 PO twice daily TOPIRAMATE 19245408410 Active Yolande Lindsay MD PhD Active AZITHROMYCIN 250 MG TABS 2 po qd x 1 day, then 1 po qd x 4 days AZITHROMYCIN 65845265617 No Longer Active Yolande Lindsay MD PhD Active DICLOFENAC SODIUM 75 MG TBEC 1 tablet by q 12 hours PRN headaches DICLOFENAC SODIUM 76231963632 No Longer Active Yolande Lindsay MD PhD Active FLONASE 50 MCG/ACT SUSP 1 spray each nostril am and hs FLUTICASONE PROPIONATE 61435849609 No Longer Active Todd Callaway MD Active ANUSOL-HC 25 MG SUPPOSITORY 1 rectally twice a day as needed for hemorrhoids HYDROCORTISONE JAYDEN (RECTAL) 40591375772 No Longer Active Yolande Lindsay MD PhD Active ANUSOL-HC 25 MG SUPPOSITORY 1 suppository rectally each evening as needed for anal fissure HYDROCORTISONE JAYDEN (RECTAL) 54201124424 No Longer Active LONNIE Iglesias Active VALIUM 5 MG TAB 1 po 30 minutes prior to your MRI DIAZEPAM 55849207474 No Longer Active LONNIE Iglesias Active METHOCARBAMOL 750 MG TABS 1 PO QID PRN METHOCARBAMOL 97889831321 No Longer Active Daphne Wetzel APRN Active NITROSTAT 0.4 MG SUBL as directed NITROGLYCERIN 73886147871 No Longer Active Rodrigo Sarah APRN Active ROBAXIN-750 750 MG TABS 2 four times a day for 3 days as needed for muscle spasm, then 1 four times a day as needed METHOCARBAMOL 87437328533 No Longer Active Rodrigo Sarah APRN Active HYDROCODONE-ACETAMINOPHEN 5-325 MG TABS 1 q 4-6 hrs prn HYDROCODONE-ACETAMINOPHEN 77351216428 No Longer Active Rodrigo Sarah APRN Active VERAPAMIL HCL CR 180 MG CR-TABS TAKE 1 TAB DAILY VERAPAMIL HCL 79451284818 No Longer Active Yolande Lindsay MD PhD Active BACTRIM DS 800-160 MG TAB 1 tab by mouth twice daily TRIMETHOPRIM-SULFAMETHOXAZOLE 67737569647 No Longer Active Yolande Lindsay MD PhD Active NEXIUM 40 MG PACK 1 by mouth daily ESOMEPRAZOLE MAGNESIUM 54260594354 No Longer Active Des Hines MD Active EPIPEN 2-CHARLETTE 0.3 MG/0.3ML OMARI as need for allergic reaction EPINEPHRINE 34967792381 Active Yolande Lindsay MD PhD Active LISINOPRIL 10 MG TABS 1 PO Q D FOR BP LISINOPRIL 13002970422 Active Yolande Lindsay MD PhD Active NEXIUM 40 MG CPDR 1 PO Q D DAY ESOMEPRAZOLE MAGNESIUM 31071463033 No Longer Active Sadia Perry RN Active NEXIUM 40 MG PACK 1 by mouth daily NEXIUM 40 MG PACK ESOMEPRAZOLE MAGNESIUM Inactive VERAPAMIL HCL CR 180 MG CR-TABS TAKE 1 TAB DAILY VERAPAMIL HCL CR 180 MG CR-TABS VERAPAMIL HCL Inactive HYDROCODONE-ACETAMINOPHEN 5-325 MG TABS 1 q 4-6 hrs prn HYDROCODONE-ACETAMINOPHEN 5-325 MG TABS 048175 HYDROCODONE-ACETAMINOPHEN Inactive ROBAXIN-750 750 MG TABS 2 four times a day for 3 days as needed for muscle spasm, then 1 four times a day as needed ROBAXIN-750 750 MG TABS 698447 METHOCARBAMOL Inactive NITROSTAT 0.4 MG SUBL as directed NITROSTAT 0.4 MG SUBL NITROGLYCERIN Inactive METHOCARBAMOL 750 MG TABS 1 PO QID PRN METHOCARBAMOL 750 MG TABS 885549 METHOCARBAMOL Inactive VALIUM 5 MG TAB 1 po 30 minutes prior to your MRI VALIUM 5 MG TAB 483230 DIAZEPAM Inactive ANUSOL-HC 25 MG SUPPOSITORY 1 suppository rectally each evening as needed for anal fissure ANUSOL-HC 25 MG SUPPOSITORY 2412294 HYDROCORTISONE JAYDEN (RECTAL) Inactive ANUSOL-HC 25 MG SUPPOSITORY 1 rectally twice a day as needed for hemorrhoids ANUSOL-HC 25 MG SUPPOSITORY 9254152 HYDROCORTISONE JAYDEN (RECTAL) Inactive FLONASE 50 MCG/ACT SUSP 1 spray each nostril am and hs FLONASE 50 MCG/ACT SUSP 142326 FLUTICASONE PROPIONATE Inactive DICLOFENAC SODIUM 75 MG TBEC 1 tablet by q 12 hours PRN headaches DICLOFENAC SODIUM 75 MG TBEC 376576 DICLOFENAC SODIUM Inactive PA VITAMIN D-3 2000 UNIT CAPS 1 CAP PO DAILY PA VITAMIN D-3 2000 UNIT CAPS CHOLECALCIFEROL Inactive PREVACID 30 MG CPDR Take 1 tablet by mouth daily-PRN PREVACID 30 MG CPDR 706113 LANSOPRAZOLE Inactive DOXYCYCLINE HYCLATE 100 MG TAB 1 tab twice a day for 14 days 2013 DOXYCYCLINE HYCLATE 100 MG TAB 978988 DOXYCYCLINE HYCLATE Inactive XOPENEX 1.25 MG/3ML NEBU 1 neb every 4 hours if needed for cough/congestion XOPENEX 1.25 MG/3ML NEBU LEVALBUTEROL HCL Inactive CYCLOBENZAPRINE HCL 10 MG TABS 1/2 - 1 tab by mouth three times daily if needed for spasms/pain CYCLOBENZAPRINE HCL 10 MG TABS 526377 CYCLOBENZAPRINE HCL Inactive ALBUTEROL SULFATE 0.083 % NEBU SOLN one vial per nebulizer every 4-6 hours as needed ALBUTEROL SULFATE 0.083 % NEBU SOLN 620950 ALBUTEROL SULFATE Inactive CEFTIN 500 MG TAB 1 twice a day CEFTIN 500 MG TAB 965965 CEFUROXIME AXETIL Inactive ZOFRAN ODT 4 MG TBDP 1 pill dissolved by mouth every 4 hours if needed for nausea ZOFRAN ODT 4 MG TBDP 431371 ONDANSETRON Inactive ADULT ASPIRIN EC LOW STRENGTH 81 MG TBEC Take 1 tablet by mouth daily 2014 ADULT ASPIRIN EC LOW STRENGTH 81 MG TBEC 391926 ASPIRIN Inactive BACTRIM DS 800-160 MG TAB 1 tab by mouth twice daily BACTRIM DS 800-160 MG TAB TRIMETHOPRIM-SULFAMETHOXAZOLE Inactive AZITHROMYCIN 250 MG TABS 2 po qd x 1 day, then 1 po qd x 4 days AZITHROMYCIN 250 MG TABS 3244986 AZITHROMYCIN Inactive CEFDINIR 300 MG CAPS by mouth twice a day CEFDINIR 300 MG CAPS 442357 CEFDINIR Inactive AZITHROMYCIN 250 MG TABS 2 pills on day 1, then 1 pill daily x 4 days AZITHROMYCIN 250 MG TABS 8211456 AZITHROMYCIN Inactive DOXYCYCLINE HYCLATE 100 MG CAP 1 cap by mouth twice daily DOXYCYCLINE HYCLATE 100 MG CAP 19890510 DOXYCYCLINE HYCLATE Inactive Immunizations Vaccine Administration Date Value Standard Description Seasonal influenza vaccine, injectable, containing preservative, for > 3 years old (Afluria, FluLaval, Fluzone, Fluvirin, Fluarix, Agriflu(>=18 yo)) Fluzone (>3 yrs.) [CAI745] Influenza, seasonal, injectable influenza immunization (Flu Vax) has been administered Influenza - Unspecified Formulation [CVX88] influenza virus vaccine, unspecified formulation pneumococcal immunization administered Pneumovax 23 [CVX33] pneumococcal polysaccharide vaccine, 23 valent Seasonal influenza vaccine, injectable, containing preservative, for > 3 years old (Afluria, FluLaval, Fluzone, Fluvirin, Fluarix, Agriflu(>=18 yo)) Fluzone (>3 yrs.) [SQK212] Influenza, seasonal, injectable dT (Diphtheria and Tetanus) booster given given Td(adult) unspecified formulation Boostrix (Tetanus toxoid, reduced diphtheria toxoid and acellular pertussis vaccine, adsorbed), booster Boostrix [KSB204] tetanus toxoid, reduced diphtheria toxoid, and acellular [...] mg/dL Chart Maintenance: Outside labs entered on [employer] - Hematology leukocyte count, blood 6.1 10*3/mm3 hemoglobin, blood 11.0 g/dL platelet count 175 10*3/mm3 Lab Report: CBC W/DIFF, Basic Metabolic Panel - Chemistry sodium, serum 144 mmol/L [phone]/01/21 potassium, serum 4.2 mmol/L 3.5-5.2 chloride, serum [...] Panel - Chemistry sodium, serum 144 mmol/L 544-522 4023/12/15 potassium, serum 5.4 mmol/L 3.5-5.2 chloride, serum [...] UA - Chemistry sodium, serum 143 mmol/L 138-525 4683/10/24 potassium, serum 3.9 mmol/L 3.5-5.2 chloride, serum [...] 51 mg/dL 30-200 cholesterol, serum 173 mg/dL [phone]/04/28 HDL cholesterol, serum 63 mg/dL 32-96 LDL [...] 0-19 Encounters Code Encounter Date Provider Facility CPT-81435 Level 3 Est. Patient 07:37:45 CDT Yolande Lindsay MD PhD [facility] CPT-79298 Level 3 Est. Patient 17:03:46 CDT Yolande Lindsay MD PhD [facility] CPT-91895 Level 4 Est. Patient 20:02:13 [employer]OWS [employer] ADMIN Yolande Lindsay MD PhD [facility] CPT-01293 Level 3 Est. Patient 16:02:07 [employer] ADMIN Alexis Ordaz MD [facility] CPT-53620 Level 3 Est. Patient 12:41:24 [employer] ADMIN Yolande Lindsay MD [facility]-12301 Level 3 Est. Patient 15:41:20 [employer] ADMIN Yolande Lindsay MD [facility]-88704 Level 3 Est. Patient 13:20:02 [employer] ADMIN Yolande Lindsay MD [facility]-01951 Level 3 Est. Patient 15:00:38 CDT Jared Og MD [facility]-03071 Level 3 Est. Patient 10:22:32 CDT Yolande Lindsay MD [facility]-42000 Level 3 Est. Patient 17:12:58 CDT Yolande Lindsay MD [facility]-01751 Level 4 Est. Patient 13:30:58 CDT Yolande Lindsay MD [facility]-98847 Level 4 New Patient 09:02:42 CDT Jared Og MD [facility] CPT-36706 Level 3 Est. Patient 08:19:07 CDT Yolande Lindsay MD [facility]-09958 Level 3 Est. Patient 12:00:13 [employer]OWS [employer] ADMIN Gab Padron MD [facility]-48336 Level 3 Est. Patient 16:15:23 [employer] ADMIN Yolande Lindsay MD [facility]-94397 Level 2 Est. Patient 19:47:15 CDT Yolande Lindsay MD [facility]-74030 Level 3 Est. Patient 21:38:31 CDT Yolande Lindsay MD [facility]-07854 Level 3 Est. Patient 10:25:12 CDT Adiel PERAZA [facility]-43272 Level 4 Est. Patient 10:51:58 CDT Yolande Lindsay MD [facility] CPT-47622 Level 3 Est. Patient 14:04:55 [employer] ADMIN Rodrigo Sarah [facility] CPT-45247 Level 3 Est. Patient 10:46:35 [employer] ADMIN Rodrigo Sarah [facility] CPT-11750 Level 3 Est. Patient 14:24:37 [employer] ADMIN Yolande Lindsay MD [facility] CPT-58554 Level 3 Est. Patient 17:41:58 [employer] ADMIN Yolande Lindsay MD [facility] CPT-84685 Level 2 Est. Patient 22:01:41 [employer] ADMIN Rodrigo Sarah [facility] CPT-19399 Level 2 Est. Patient 22:01:11 [employer] ADMIN Rodrigo Sarah [facility] CPT-02120 Level 3 Est. Patient 10:12:29 [employer] ADMIN Rodrigo Sarah [facility] CPT-84515 Level 3 Est. Patient 11:05:44 CDT Alexis Ordaz MD [facility] CPT-23081 Level 3 Est. Patient 14:57:20 CDT Yolande Lindsay MD [facility] CPT-46113 Level 3 Est. Patient 14:40:57 CDT Yolande Lindsay MD [facility] CPT-01119 Level 3 Est. Patient 20:55:40 CDT Yolande Lindsay MD [facility] CPT-43300 Level 3 Est. Patient 12:42:38 [employer]OWS [employer] ADMIN Yolande Lindsay MD [facility]-78698 Level 3 Est. Patient 11:54:49 [employer] ADMIN Des Hines MD [facility] CPT-75309 Level 3 Est. Patient 17:06:38 CDT Dewayne PERAZA [facility] Procedures Code Procedure Name Date Entry Date Standard Description CPT-28862 EKG Trac and Interp 16:50:22 CDT CPT-J1030 Depo Medrol 40 mg (Methyl Prednisolone Acetate) 17:05: 54 CDT CPT-J1100 Decadron 4mg (Dexamethasone) 17:05:54 CDT CPT-25196 Abx/Therapy Injection 17:05:54 CDT CPT-J1100 Decadron 4mg (Dexamethasone) 16:55:28 CDT CPT-J1030 Depo Medrol 40 mg (Methyl Prednisolone Acetate) 16:55: 28 CDT CPT-57038 Ankle Complete - Min 3V 15:58:50 CDT CPT-01242 Knee 3V 15:58:50 CDT CPT-49255 Hip comp min 2V 15:58:50 CDT CPT-J2270 Morphine Sulfate 10 mg 14:25:44 [employer]INDOWS SYSTEM[employer] ADMIN CPT-J2550 Phenergan 12.5 mg (Promethazine) 14:25:44 [employer]OWS [employer] ADMIN CPT-23631 Abx/Therapy Injection 14:25:44 [employer]OWS [employer] ADMIN CPT-J2550 Phenergan 12.5 mg (Promethazine) 14:08:03 [employer]OWS [employer] ADMIN CPT-J2270 Morphine Sulfate 10 mg 14:08:03 [employer]OWS [employer] ADMIN CPT-50073 Bladder Scan 15:00:38 CDT CPT-TCMM Transitional Care Mgmt-Moderate 09:52:22 CDT CPT-J1030 Depo Medrol 40 mg (Methyl Prednisolone Acetate) 10:55: 18 CDT CPT-J1100 Decadron 4mg (Dexamethasone) 10:55:18 CDT CPT-45152 Abx/Therapy Injection 10:55:18 CDT CPT-J1030 Depo Medrol 40 mg (Methyl Prednisolone Acetate) 10:22: 32 CDT CPT-J1100 Decadron 4mg (Dexamethasone) 10:22:32 CDT CPT-85683 Postop F/U Visit 14:37:13 CDT CPT-00409 Ankle Complete - Min 3V 17:11:58 CDT CPT-87542 Foot comp min 3V 17:11:58 CDT CPT-78813 Bladder Scan 09:56:58 CDT CPT-95251 Postop F/U Visit 09:56:58 CDT CPT-35530 Cystoscopy 09:02:42 CDT CPT-97808 Bladder Scan 09:02:42 CDT CPT-78045 Abd single AP View 16:00:35 CDT CPT-92798 Administration single or combination vaccine inc oral 10 :15:43 CDT CPT-49720 Influenza split virus > age 3 10:15:43 CDT CPT-37512 Nail Avulsion 09:24:57 CDT CPT-OV Office Visit 11:15:41 CDT CPT-19872 Abx/Therapy Injection 10:51:30 CDT CPT-J3301 Kenalog 40 mg (Triamcinolone Acetonide) 10:25:12 CDT CPT-J1100 Decadron 4mg (Dexamethasone) 10:25:12 CDT CPT-05542 Anoscopy diagnostic 10:36:12 CDT CPT-OV Office Visit 15:34:31 CDT CPT-06187 Abx/Therapy Injection 08:21:15 [employer]OWS [employer] ADMIN CPT-J1885 Toradol 60 mg (Ketorolac) 10:46:35 [employer]OWS [employer] ADMIN CPT-OV Office Visit 19:51:16 [employer]MIN CPT-25464 Spec Collection and Handling Fee 14:34:18 [employer]OWS [employer] ADMIN CPT-PV Prev. Care Visit 14:19:18 [employer]OWS [employer] ADMIN CPT-76969 Postop F/U Visit 14:47:51 [employer] ADMIN CPT-69491 Postop F/U Visit 15:15:14 [employer] ADMIN CPT-62035 Postop F/U Visit 14:41:43 CDT CPT-52133 Postop F/U Visit 15:47:46 CDT CPT-OV Office Visit 15:27:23 CDT CPT-OV Office Visit 17:20:34 CDT CPT-19513 Abx/Therapy Injection 15:05:57 CDT CPT-J1100 Decadron 8mg (Dexamethasone) 14:44:57 CDT CPT-J1040 Depo Medrol 80 mg (Methyl Prednisolone Acetate) 14:44: 57 CDT CPT-JTINJ Joint Injection 10:17:37 CDT CPT-87486 Administration 2+ single or combination vaccines inc oral 13:01:46 [employer]OWS [employer] ADMIN CPT-73196 Administration single or combination vaccine inc oral 13 :01:46 [employer]OWS [employer] ADMIN CPT-96163 Pneumovax 13:01:46 [employer]OWS [employer] ADMIN CPT-65642 Influenza split virus > age 3 13:01:46 [employer]OWS [employer] ADMIN CPT-93832 Administration single or combination vaccine inc oral 08 :56:49 CDT CPT-47947 Tdap 08:56:49 CDT
--- OUTSIDE RECORDS SUMMARY | 2017-03-22 03:21 | XMS REPORT | Clinical Summary ---
Author Author Admin, MARGRET Organization [employer] Address Unknown Phone Unavailable Allergies, Adverse Reactions, Alerts Allergy Name Reaction Description Start Date Severity Status Provider VALENTIN Critical Active Rodrigo Montemayorl BATTERY SERVICE TECHNICIAN CHLORHEXIDINE GLUCONATE tongue and gums swollen Critical Active Hoa Kabaford RMA NORFLEX Rash Critical Active Rowenaina Frazell BATTERY SERVICE TECHNICIAN TRAZODONE HCL sees things Critical Active [...] Pain in limb Tick bite 989.5 Resolved Yoladne Lindsay MD PhD Toxic effect of venom URI 465.9 Resolved Yolande Lindsay MD PhD Acute upper respiratory infections of unspecified site Mycoplasma pneumonia 483.0 Resolved Yolande Lindsay MD PhD Pneumonia due to Mycoplasma pneumoniae Sexual dysfunction 302.70 Active Jared Og MD Psychosexual dysfunction, unspecified Muscle spasm, back 724.8 Resolved Yolande Lindsay MD PhD Other symptoms referable to back Obesity 278.00 Active oYlande Lindsay MD PhD Obesity, unspecified Sinusitis, acute [...] of 412 Active Hoa Otto [facility] Old myocardial infarction Pelvic pain 789.09 Active Yolande Lindsay MD PhD Abdominal pain, other specified site; multiple sites Edema 782.3 Active Yolande Lindsay MD PhD Edema Rash 782.1 Active Yolande Lindsay MD PhD Rash and other nonspecific skin eruption Back pain, lumbar 724.2 Active Gab Padron MD Lumbago Cough 786.2 Active Jillina Tyrel BATTERY SERVICE TECHNICIAN Cough 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 Jillina Frazellilian ZAPATAN 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 Anemia 285.9 Active Gab Padron MD Anemia, unspecified Conjunctivitis 372.30 Active Jillnacho Sarah APRN Conjunctivitis, unspecified Sinusitis 473.9 Active Jillina Frazell BATTERY SERVICE TECHNICIAN Unspecified sinusitis (chronic) Nonspecific syndrome suggestive of viral illness 079.99 Active Jillina Siml BATTERY SERVICE TECHNICIAN Unspecified viral infection Laryngitis 464.00 Active Jillina Farshadzell BATTERY SERVICE TECHNICIAN Acute laryngitis without mention of obstruction [...] Abdominal pain, generalized 789.07 Active Silvestrellina Siml BATTERY SERVICE TECHNICIAN Abdominal pain, generalized Back pain, thoracic region, left 724.1 Active Jillina Farshadzell BATTERY SERVICE TECHNICIAN Pain in thoracic spine Abdominal pain, [...] 1/2 tab daily for 2 days PREDNISONE 66730136787 Active Gab Padron MD Active ZOFRAN ODT 4 MG TBDP 1 po q6hr PRN Nausea ONDANSETRON 94381374214 Active Rodrigo Sarah APRN Active IBUPROFEN 600 MG TAB 1 tablet by mouth every 6 hours for 7 days, then 1 tablet every 6 hours as needed. Take with food IBUPROFEN 48056694905 Active Jillina Frazell DAIN Active BACTRIM DS 800-160 MG TAB 1 tab by mouth twice daily TRIMETHOPRIM-SULFAMETHOXAZOLE 10565684716 No Longer Active Gab Padron MD Active ADVAIR DISKUS 250-50 MCG/DOSE AEPB 1 puff BID FLUTICASONE- SALMETEROL 60927093608 Active Rodrigo Sarah APRN Active LEVOTHYROXINE SODIUM 75 MCG TABS Take 1 tab daily LEVOTHYROXINE SODIUM 05734123675 No Longer Active Mariana HICKEYA Active SYNTHROID 88 MCG ORAL TABS Take one by mouth daily LEVOTHYROXINE SODIUM 00516274828 Active Mariana HICKEYA Active CHERATUSSIN AC 100-10 MG/5ML SYRP 1 tsp by mouth every 4 hours as needed for cough GUAIFENESIN-CODEINE 38093796082 No Longer Active Gab Padron MD Active POLYTRIM 19325-6.1 UNIT/ML-% SOLN 1 gtt to affected eye q3h x 7 days POLYMYXIN B-TRIMETHOPRIM 54102528591 No Longer Active Gab Padron MD Active FLUTICASONE PROPIONATE 50 MCG/ACT SUSP 1 to 2 sprays each nostril daily 04/21 FLUTICASONE PROPIONATE 56033162388 No Longer Active Gab Padron MD Active TRILEPTAL 600 MG TABS Take one 1 tablet in Am and 1 tablet at night OXCARBAZEPINE 82614969250 Active Gab Padron MD Active CEFDINIR 300 MG CAPS 1 po BID x 10 days CEFDINIR 54697644693 No Longer Active Rodrigo Sarah APRN Active CEFTIN 500 MG TAB 1 twice a day CEFUROXIME AXETIL 36386033776 No Longer Active Gab Padron MD Active AZITHROMYCIN 250 MG TABS 2 po qd x 1 day, then 1 po qd x 4 days AZITHROMYCIN 46542106900 No Longer Active Silvestrellnacho Sarah APRN Active CLARITIN 10 MG TAB 1 tablet by mouth daily as needed for allergies LORATADINE 71132914617 Active Silvestrellnacho Sarah APRN Active OXYCODONE HCL 5 MG ORAL CAPS 1 TAB PO Q HS OXYCODONE HCL 38916672686 No Longer Active Rodrigo Sarah APRN Active NIASPAN 500 MG ORAL CR-TABS 1 pill nightly x 1 week, then 2 pills nightly x 1 week, then 3 pills nightly x 1 week, then 4 pills nightly NIACIN (ANTIHYPERLIPIDEMIC) 52438727297 No Longer Active Silvestrebernabe Yenhossein ZAPATAN Active NIACIN 500 MG TABS 1 pill by mouth nightly x 1 week, then 2 pills x 1 week, then 3 pills x 1 week, then 4 pills nightly - take after evening meal, with applesauce or an apple NIACIN 77912903457 No Longer Active Yolande Lindsay MD PhD Active FISH OIL 1000 MG CAPS 3 pills daily OMEGA-3 FATTY ACIDS 68120886706 Active Yolande Lindsay MD PhD Active TRIAMCINOLONE ACETONIDE 0.1 % CREA apply bid sparingly to rash TRIAMCINOLONE ACETONIDE 44153134794 Active Yolande Lindsay MD PhD Active FUROSEMIDE 20 MG TAB 1 tablet by mouth daily FUROSEMIDE 16585874459 Active Tisha Lambert APRN Active LISINOPRIL 20 MG ORAL TABS 1 tab by mouth daily LISINOPRIL 50432957868 Active Gab Padron MD Active FUROSEMIDE 20 MG TABS 1 pill by mouth daily, for edema FUROSEMIDE 28869854329 No Longer Active Yolande Lindsay MD PhD Active ATORVASTATIN CALCIUM 10 MG TABS 1 pill by mouth daily, for cholesterol 09/06 ATORVASTATIN CALCIUM 81222281392 Active Gab Padron MD Active CALCIUM 600+D PLUS MINERALS 600-400 MG-UNIT ORAL CHEW 1 tab by mouth daily CALCIUM CARBONATE-VIT D-MIN 70156879685 No Longer Active Yolande Lindsay MD PhD Active CYCLOBENZAPRINE HCL 10 MG TABS 1 tablet by mouth three times daily as needed for muscle spasm/pain CYCLOBENZAPRINE HCL 86759919247 Active Yolande Lindsay MD PhD Active ONDANSETRON 4 MG TBDP 1 q4h PRN nausea ONDANSETRON 32330589179 Active Yolande Lindsay MD PhD Active ADULT ASPIRIN EC LOW STRENGTH 81 MG TBEC Take 1 tablet by mouth daily 2014 ASPIRIN 03918120331 No Longer Active Yolande Lindsay MD PhD Active ZOFRAN ODT 4 MG TBDP 1 pill dissolved by mouth every 4 hours if needed for nausea ONDANSETRON 06436470356 No Longer Active Yolande Lindsay MD PhD Active CEFTIN 500 MG TAB 1 twice a day CEFUROXIME AXETIL 06052460201 No Longer Active Yolande Lindsay MD PhD Active ALBUTEROL SULFATE 0.083 % NEBU SOLN one vial per nebulizer every 4-6 hours as needed ALBUTEROL SULFATE 84323082203 No Longer Active Alexis Ordaz MD Active DOXYCYCLINE HYCLATE 100 MG CAP 1 cap by mouth twice daily DOXYCYCLINE HYCLATE 89365960524 No Longer Active Yolande Lindsay MD PhD Active CYCLOBENZAPRINE HCL 10 MG TABS 1/2 - 1 tab by mouth three times daily if needed for spasms/pain CYCLOBENZAPRINE HCL 49842298812 No Longer Active Yolande Lindsay MD PhD Active AZITHROMYCIN 250 MG TABS 2 pills on day 1, then 1 pill daily x 4 days AZITHROMYCIN 14087500003 No Longer Active Yolande Lindsay MD PhD Active XOPENEX 1.25 MG/3ML NEBU 1 neb every 4 hours if needed for cough/congestion LEVALBUTEROL HCL 38427321722 No Longer Active Yolande Lindsay MD PhD Active DOXYCYCLINE HYCLATE 100 MG TAB 1 tab twice a day for 14 days 2013 DOXYCYCLINE HYCLATE 27543241323 No Longer Active Yolande Lindsay MD PhD Active PREVACID 30 MG CPDR Take 1 tablet by mouth daily-PRN LANSOPRAZOLE 37518167963 No Longer Active Yolande Lindsay MD PhD Active PA VITAMIN D-3 2000 UNIT CAPS 1 CAP PO DAILY CHOLECALCIFEROL 60717863734 No Longer Active Yolande Lindsay MD PhD Active CEFDINIR 300 MG CAPS by mouth twice a day CEFDINIR 29494658263 No Longer Active Gab Padron MD Active TOPAMAX 50 MG TABS 1 PO twice daily TOPIRAMATE 07035277827 Active Yolande Lindsay MD PhD Active AZITHROMYCIN 250 MG TABS 2 po qd x 1 day, then 1 po qd x 4 days AZITHROMYCIN 96889034940 No Longer Active Yolande Lindsay MD PhD Active DICLOFENAC SODIUM 75 MG TBEC 1 tablet by q 12 hours PRN headaches DICLOFENAC SODIUM 12353957291 No Longer Active Yolande Lindsay MD PhD Active FLONASE 50 MCG/ACT SUSP 1 spray each nostril am and hs FLUTICASONE PROPIONATE 60525106203 No Longer Active Todd Callaway MD Active ANUSOL-HC 25 MG SUPPOSITORY 1 rectally twice a day as needed for hemorrhoids HYDROCORTISONE JAYDEN (RECTAL) 93541583129 No Longer Active Yolande Lindsay MD PhD Active ANUSOL-HC 25 MG SUPPOSITORY 1 suppository rectally each evening as needed for anal fissure HYDROCORTISONE JAYDEN (RECTAL) 90592019260 No Longer Active LONNIE Iglesias Active VALIUM 5 MG TAB 1 po 30 minutes prior to your MRI DIAZEPAM 76363949466 No Longer Active LONNIE Iglesias Active METHOCARBAMOL 750 MG TABS 1 PO QID PRN METHOCARBAMOL 69432940066 No Longer Active Daphne Wetzel APRN Active NITROSTAT 0.4 MG SUBL as directed NITROGLYCERIN 59020833447 No Longer Active Rodrigo Sarah APRN Active ROBAXIN-750 750 MG TABS 2 four times a day for 3 days as needed for muscle spasm, then 1 four times a day as needed METHOCARBAMOL 25214868191 No Longer Active Rodrigo Sarah APRN Active HYDROCODONE-ACETAMINOPHEN 5-325 MG TABS 1 q 4-6 hrs prn HYDROCODONE-ACETAMINOPHEN 60728718959 No Longer Active Rodrigo Sarah BATTERY SERVICE TECHNICIAN Active VERAPAMIL HCL CR 180 MG CR-TABS TAKE 1 TAB DAILY VERAPAMIL HCL 09508571079 No Longer Active Yolande Lindsay MD PhD Active BACTRIM DS 800-160 MG TAB 1 tab by mouth twice daily TRIMETHOPRIM-SULFAMETHOXAZOLE 54947931370 No Longer Active Yolande Lindsay MD PhD Active NEXIUM 40 MG PACK 1 by mouth daily ESOMEPRAZOLE MAGNESIUM 95252218888 No Longer Active Des Hines MD Active EPIPEN 2-CHARLETTE 0.3 MG/0.3ML OMARI as need for allergic reaction EPINEPHRINE 94502767771 Active Yolande Lindsay MD PhD Active NEXIUM 40 MG CPDR 1 PO Q D DAY ESOMEPRAZOLE MAGNESIUM 85752468681 No Longer Active Sadia Perry RN Active NEXIUM 40 MG PACK 1 by mouth daily NEXIUM 40 MG PACK ESOMEPRAZOLE MAGNESIUM Inactive VERAPAMIL HCL CR 180 MG CR-TABS TAKE 1 TAB DAILY VERAPAMIL HCL CR 180 MG CR-TABS VERAPAMIL HCL Inactive HYDROCODONE-ACETAMINOPHEN 5-325 MG TABS 1 q 4-6 hrs prn HYDROCODONE-ACETAMINOPHEN 5-325 MG TABS 704881 HYDROCODONE-ACETAMINOPHEN Inactive ROBAXIN-750 750 MG TABS 2 four times a day for 3 days as needed for muscle spasm, then 1 four times a day as needed ROBAXIN-750 750 MG TABS 319563 METHOCARBAMOL Inactive NITROSTAT 0.4 MG SUBL as directed NITROSTAT 0.4 MG SUBL NITROGLYCERIN Inactive METHOCARBAMOL 750 MG TABS 1 PO QID PRN METHOCARBAMOL 750 MG TABS 359497 METHOCARBAMOL Inactive VALIUM 5 MG TAB 1 po 30 minutes prior to your MRI VALIUM 5 MG TAB 183234 DIAZEPAM Inactive ANUSOL-HC 25 MG SUPPOSITORY 1 suppository rectally each evening as needed for anal fissure ANUSOL-HC 25 MG SUPPOSITORY 5342095 HYDROCORTISONE JAYDEN (RECTAL) Inactive ANUSOL-HC 25 MG SUPPOSITORY 1 rectally twice a day as needed for hemorrhoids ANUSOL-HC 25 MG SUPPOSITORY 2919962 HYDROCORTISONE JAYDEN (RECTAL) Inactive FLONASE 50 MCG/ACT SUSP 1 spray each nostril am and hs FLONASE 50 MCG/ACT SUSP FLUTICASONE PROPIONATE Inactive DICLOFENAC SODIUM 75 MG TBEC 1 tablet by q 12 hours PRN headaches DICLOFENAC SODIUM 75 MG TBEC 347993 DICLOFENAC SODIUM Inactive PA VITAMIN D-3 2000 UNIT CAPS 1 CAP PO DAILY PA VITAMIN D-3 2000 UNIT CAPS CHOLECALCIFEROL Inactive PREVACID 30 MG CPDR Take 1 tablet by mouth daily-PRN PREVACID 30 MG CPDR 852231 LANSOPRAZOLE Inactive DOXYCYCLINE HYCLATE 100 MG TAB 1 tab twice a day for 14 days 2013 DOXYCYCLINE HYCLATE 100 MG TAB 6956751 DOXYCYCLINE HYCLATE Inactive XOPENEX 1.25 MG/3ML NEBU 1 neb every 4 hours if needed for cough/congestion XOPENEX 1.25 MG/3ML NEBU 886447 LEVALBUTEROL HCL Inactive CYCLOBENZAPRINE HCL 10 MG TABS 1/2 - 1 tab by mouth three times daily if needed for spasms/pain CYCLOBENZAPRINE HCL 10 MG TABS 525741 CYCLOBENZAPRINE HCL Inactive ALBUTEROL SULFATE 0.083 % NEBU SOLN one vial per nebulizer every 4-6 hours as needed ALBUTEROL SULFATE 0.083 % NEBU SOLN 262646 ALBUTEROL SULFATE Inactive CEFTIN 500 MG TAB 1 twice a day CEFTIN 500 MG TAB 928580 CEFUROXIME AXETIL Inactive ZOFRAN ODT 4 MG TBDP 1 pill dissolved by mouth every 4 hours if needed for nausea ZOFRAN ODT 4 MG TBDP 041174 ONDANSETRON Inactive ADULT ASPIRIN EC LOW STRENGTH 81 MG TBEC Take 1 tablet by mouth daily 2014 ADULT ASPIRIN EC LOW STRENGTH 81 MG TBEC 762906 ASPIRIN Inactive CALCIUM 600+D PLUS MINERALS 600-400 [...] or an apple NIACIN 500 MG TABS 549411 NIACIN Inactive NIASPAN 500 MG ORAL CR-TABS 1 pill nightly x 1 week, then 2 pills nightly x 1 week, then 3 pills nightly x 1 week, then 4 pills nightly NIASPAN 500 MG ORAL CR-TABS NIACIN (ANTIHYPERLIPIDEMIC) Inactive OXYCODONE HCL 5 MG ORAL CAPS 1 TAB PO Q HS OXYCODONE HCL 5 MG ORAL CAPS 7114428 OXYCODONE HCL Inactive FLUTICASONE PROPIONATE 50 MCG/ACT SUSP 1 to 2 sprays each nostril daily 04/21 FLUTICASONE PROPIONATE 50 MCG/ACT SUSP 146628 FLUTICASONE PROPIONATE Inactive POLYTRIM 33166-2.1 UNIT/ML-% SOLN 1 gtt to affected eye q3h x 7 days POLYTRIM 93547-5.1 UNIT/ML-% SOLN 145924 POLYMYXIN B- TRIMETHOPRIM Inactive CHERATUSSIN AC 100-10 MG/5ML SYRP 1 tsp by mouth every 4 hours as needed for cough CHERATUSSIN AC 100-10 MG/5ML SYRP 078409 GUAIFENESIN-CODEINE Inactive LEVOTHYROXINE SODIUM 75 MCG TABS Take 1 tab daily LEVOTHYROXINE SODIUM 75 MCG TABS 961305 LEVOTHYROXINE SODIUM Inactive BACTRIM DS 800-160 MG TAB 1 tab by mouth twice daily BACTRIM DS 800-160 MG TAB 19820606 TRIMETHOPRIM-SULFAMETHOXAZOLE Inactive AZITHROMYCIN 250 MG TABS 2 po qd x 1 day, then 1 po qd x 4 days AZITHROMYCIN 250 MG TABS 3345877 AZITHROMYCIN Inactive CEFDINIR 300 MG CAPS by mouth twice a day CEFDINIR 300 MG CAPS 20020708 CEFDINIR Inactive AZITHROMYCIN 250 MG TABS 2 pills on day 1, then 1 pill daily x 4 days AZITHROMYCIN 250 MG TABS 5314140 AZITHROMYCIN Inactive DOXYCYCLINE HYCLATE 100 MG CAP 1 cap by mouth twice daily DOXYCYCLINE HYCLATE 100 MG CAP 1031551 DOXYCYCLINE HYCLATE Inactive FUROSEMIDE 20 MG TABS 1 pill by mouth daily, for edema FUROSEMIDE 20 MG TABS 590090 FUROSEMIDE Inactive AZITHROMYCIN 250 MG TABS 2 po qd x 1 day, then 1 po qd x 4 days AZITHROMYCIN 250 MG TABS 6529942 AZITHROMYCIN Inactive CEFTIN 500 MG TAB 1 twice a day CEFTIN 500 MG TAB 582473 CEFUROXIME AXETIL Inactive CEFDINIR 300 MG CAPS [...] Fluvirin, Fluarix, Agriflu(>=18 yo)) Fluzone (>3 yrs.) [UOK263] Influenza, seasonal, injectable influenza immunization (Flu Vax) has been administered Influenza - Unspecified Formulation [CVX88] influenza virus vaccine, unspecified formulation Seasonal influenza vaccine, injectable, containing preservative, for > 3 years old (Afluria, FluLaval, Fluzone, Fluvirin, Fluarix, Agriflu(>=18 yo)) Fluzone (>3 yrs.) [MOV805] Influenza, seasonal, injectable pneumococcal immunization administered Pneumovax 23 [CVX33] pneumococcal polysaccharide vaccine, 23 valent dT (Diphtheria and Tetanus) booster given given Td(adult) unspecified formulation Boostrix (Tetanus toxoid, reduced diphtheria toxoid and acellular pertussis vaccine, adsorbed), booster Boostrix [OYR014] tetanus toxoid, reduced diphtheria toxoid, and acellular [...] Panel - Chemistry sodium, serum 142 mmol/L 987-209 0730/06/30 potassium, serum 4.4 mmol/L 3.5-5.2 chloride, serum 108 mmol/L 98-107 carbon dioxide, venous blood 25.1 mmol/L 21.0-32.0 blood glucose 82 mg/dL 65-110 calcium, serum 9.1 mg/dL 8.5-10.1 urea nitrogen, blood 18 mg/dL 7-18 creatinine, serum 1.31 mg/dL 0.55-1.30 Lab Report: [facility] Advanced Lipid and Inlammation Panel /89186 - Chemistry cholesterol, serum 148 mg/dL 515-170 7049/09/02 HDL cholesterol, serum 55 mg/dL > OR=46 [...] (L) - Chemistry sodium, serum 145 mmol/L 364-046 4802/09/02 potassium, serum 4.6 mmol/L 3.5-5.2 chloride, serum [...] Rate - Chemistry sodium, serum 139 mmol/L 434-104 3632/03/24 carbon dioxide, venous blood 22.4 mmol/L 21.0-32.0 [...] ... - Chemistry sodium, serum 143 mmol/L 711-043 2178/05/02 carbon dioxide, venous blood 25.6 mmol/L 21.0-32.0 [...] Negative mg/dL Negative sodium, serum 142 mmol/L 482-413 9669/07/18 carbon dioxide, venous blood 27.8 mmol/L 21.0-32.0 [...] mg/dL Encounters Code Encounter Date Provider Facility CPT-13383 Level 3 Est. Patient 11:01:51 CDT Gab Padron MD [facility] CPT-83684 Level 3 Est. Patient 15:27:02 CDT Jared Og MD [facility] [place] CPT-01819 Level 4 Est. Patient 09:25:27 CDT Gab Padron MD [facility] CPT-60887 Level 3 Est. Patient 10:29:41 CDT Rodrigo Sarah APRN [facility]-11720 Level 4 Est. Patient 17:51:05 CDT Gab Padron MD [facility]-02106 Level 3 Est. Patient 14:18:08 CDT Gab Padron MD [facility]-10900 Level 4 Est. Patient 10:18:54 CDT Gab Padron MD [facility]-54248 Level 3 Est. Patient 11:30:07 CDT Rodrigo Sarah [facility]-40250 Level 4 Est. Patient 21:02:30 MOBILE PRODUCT MANAGER Gab Padron MD [facility]-57830 Level 3 Est. Patient 11:02:19 MOBILE PRODUCT MANAGER Gab Padron MD [facility]-06367 Level 4 Est. Patient 22:24:31 MOBILE PRODUCT MANAGER Gab Padron MD [facility]-76971 Level 3 Est. Patient 18:33:46 MOBILE PRODUCT MANAGER Gab Padron MD [facility]-81969 Level 3 Est. Patient 16:19:11 CDT Yolande Lindsay MD [facility] [place]-01259 Level 3 Est. Patient 18:59:14 CDT Yolande Lindsay MD [facility]-94684 Level 4 Est. Patient 21:29:26 CDT Yolande Lindsay MD [facility]-96577 Level 3 Est. Patient 07:37:45 CDT Yolande Lindsay MD [facility]84693 Level 3 Est. Patient 17:03:46 CDT Yolande Lindsay MD PhD [facility]-68415 Level 4 Est. Patient 20:02:13 MOBILE PRODUCT MANAGER Yolande Lindsay MD PhD [facility] CPT-41264 Level 3 Est. Patient 16:02:07 MOBILE PRODUCT MANAGER Alexis Ordaz MD [facility] CPT-46758 Level 3 Est. Patient 12:41:24 MOBILE PRODUCT MANAGER Yolande Lindsay MD [facility]-91617 Level 3 Est. Patient 15:41:20 MOBILE PRODUCT MANAGER Yolande Lindsay MD [facility]-19555 Level 3 Est. Patient 13:20:02 MOBILE PRODUCT MANAGER Yolande Lindsay MD [facility]-12422 Level 3 Est. Patient 15:00:38 CDT Jared Og MD [facility]-93173 Level 3 Est. Patient 10:22:32 CDT Yolande Lindsay MD [facility] CPT-12927 Level 3 Est. Patient 17:12:58 CDT Yolande Lindsay MD [facility] CPT-25524 Level 4 Est. Patient 13:30:58 CDT Yolande Lindsay MD [facility] CPT-97942 Level 4 New Patient 09:02:42 CDT Jared Og MD [facility]-14506 Level 3 Est. Patient 08:19:07 CDT Yolande Lindsay MD [facility] CPT-08145 Level 3 Est. Patient 12:00:13 MOBILE PRODUCT MANAGER Gab Padron MD [facility] CPT-17258 Level 3 Est. Patient 16:15:23 MOBILE PRODUCT MANAGER Yolande Lindsay MD [facility] CPT-82802 Level 2 Est. Patient 19:47:15 CDT Yolande Lindsay MD [facility] [place]-46777 Level 3 Est. Patient 21:38:31 CDT Yolande Lindsay MD [facility]-28826 Level 3 Est. Patient 10:25:12 CDT Adiel PERAZA [facility] CPT-10603 Level 4 Est. Patient 10:51:58 CDT Yolande Lindsay MD [facility]-52156 Level 3 Est. Patient 14:04:55 MOBILE PRODUCT MANAGER Rodrigo Sarah [facility] CPT-05612 Level 3 Est. Patient 10:46:35 MOBILE PRODUCT MANAGER Rodrigo Sarah [facility] CPT-67365 Level 3 Est. Patient 14:24:37 MOBILE PRODUCT MANAGER Yolande Lindsay MD [facility]-16055 Level 3 Est. Patient 17:41:58 MOBILE PRODUCT MANAGER Yolande Lindsay MD [facility]-90314 Level 2 Est. Patient 22:01:41 MOBILE PRODUCT MANAGER Rodrigo Sarah [facility]-79265 Level 2 Est. Patient 22:01:11 MOBILE PRODUCT MANAGER Rodrigo Sarah [facility] CPT-15705 Level 3 Est. Patient 10:12:29 MOBILE PRODUCT MANAGER Rodrigo Sarah [facility]-60604 Level 3 Est. Patient 11:05:44 CDT Alexis Ordaz MD [facility]-83571 Level 3 Est. Patient 14:57:20 CDT Yolande Lindsay MD [facility] [place]-34154 Level 3 Est. Patient 14:40:57 CDT Yolande Lindsay MD [facility]-13776 Level 3 Est. Patient 20:55:40 CDT Yolande Lindsay MD [facility]-80045 Level 3 Est. Patient 12:42:38 MOBILE PRODUCT MANAGER Yolande Lindsay MD [facility]84353 Level 3 Est. Patient 11:54:49 MOBILE PRODUCT MANAGER Des Hines MD [facility] CPT-61650 Level 3 Est. Patient 17:06:38 CDT Dewayne PERAZA [facility] Procedures Code Procedure Name Date Entry Date Standard Description CPT-75504 Foot, left, comp min 3V - XRAY USE ONLY 09:24:54 CDT CPT-60828 Abd single AP View - XRAY USE ONLY 11:16:17 CDT CPT-16295 T spine AP/ Lat - XRAY USE ONLY 09:34:21 CDT CPT-84482 Chest 2V Frontal and Lat - XRAY USE ONLY 10:48:51 CDT CPT-78432 LS spine comp w obliq 13:28:00 MOBILE PRODUCT MANAGER CPT-J1040 Depo Medrol 80 mg (Methyl Prednisolone Acetate) 10:51: 28 MOBILE PRODUCT MANAGER CPT-J1100 Decadron 8mg (Dexamethasone) 10:51:28 MOBILE PRODUCT MANAGER CPT-62883 Abx/Therapy Injection 10:51:28 MOBILE PRODUCT MANAGER CPT-J1100 Decadron 8mg (Dexamethasone) 21:02:30 MOBILE PRODUCT MANAGER CPT-J1040 Depo Medrol 80 mg (Methyl Prednisolone Acetate) 21:02: 30 MOBILE PRODUCT MANAGER [id number] Event Monitor - MC Transmission 09:12:32 CDT 08/06 [id number] Event Monitor - MC review and interp 09:12:32 CDT [id number] Event Monitor - MC recording 09:12:32 CDT CPT-67632 EKG Trac and Interp 16:50:22 CDT CPT-J1030 Depo Medrol 40 mg (Methyl Prednisolone Acetate) 17:05: 54 CDT CPT-J1100 Decadron 4mg (Dexamethasone) 17:05:54 CDT CPT-92640 Abx/Therapy Injection 17:05:54 CDT CPT-J1100 Decadron 4mg (Dexamethasone) 16:55:28 CDT CPT-J1030 Depo Medrol 40 mg (Methyl Prednisolone Acetate) 16:55: 28 CDT CPT-41301 Ankle Complete - Min 3V 15:58:50 CDT CPT-82115 Knee 3V 15:58:50 CDT CPT-20091 Hip comp min 2V 15:58:50 CDT CPT-J2270 Morphine Sulfate 10 mg 14:25:44 MOBILE PRODUCT MANAGER CPT-J2550 Phenergan 12.5 mg (Promethazine) 14:25:44 MOBILE PRODUCT MANAGER CPT-80557 Abx/Therapy Injection 14:25:44 MOBILE PRODUCT MANAGER CPT-J2550 Phenergan 12.5 mg (Promethazine) 14:08:03 MOBILE PRODUCT MANAGER CPT-J2270 Morphine Sulfate 10 mg 14:08:03 MOBILE PRODUCT MANAGER CPT-89287 Bladder Scan 15:00:38 CDT CPT-TCMM Transitional Care Mgmt-Moderate 09:52:22 CDT CPT-J1030 Depo Medrol 40 mg (Methyl Prednisolone Acetate) 10:55: 18 CDT CPT-J1100 Decadron 4mg (Dexamethasone) 10:55:18 CDT CPT-85975 Abx/Therapy Injection 10:55:18 CDT CPT-J1030 Depo Medrol 40 mg (Methyl Prednisolone Acetate) 10:22: 32 CDT CPT-J1100 Decadron 4mg (Dexamethasone) 10:22:32 CDT CPT-92196 Postop F/U Visit 14:37:13 CDT CPT-01869 Ankle Complete - Min 3V 17:11:58 CDT CPT-59760 Foot comp min 3V 17:11:58 CDT CPT-18441 Bladder Scan 09:56:58 CDT CPT-19126 Postop F/U Visit 09:56:58 CDT CPT-26388 Cystoscopy 09:02:42 CDT CPT-50303 Bladder Scan 09:02:42 CDT CPT-57857 Abd single AP View 16:00:35 CDT CPT-66183 Administration single or combination vaccine inc oral 10 :15:43 CDT CPT-58769 Influenza split virus > age 3 10:15:43 CDT CPT-35396 Nail Avulsion 09:24:57 CDT CPT-OV Office Visit 11:15:41 CDT CPT-04239 Abx/Therapy Injection 10:51:30 CDT CPT-J3301 Kenalog 40 mg (Triamcinolone Acetonide) 10:25:12 CDT CPT-J1100 Decadron 4mg (Dexamethasone) 10:25:12 CDT CPT-54413 Anoscopy diagnostic 10:36:12 CDT CPT-OV Office Visit 15:34:31 CDT CPT-47590 Abx/Therapy Injection 08:21:15 MOBILE PRODUCT MANAGER CPT-J1885 Toradol 60 mg (Ketorolac) 10:46:35 MOBILE PRODUCT MANAGER CPT-OV Office Visit 19:51:16 MOBILE PRODUCT MANAGER CPT-01868 Spec Collection and Handling Fee 14:34:18 MOBILE PRODUCT MANAGER CPT-PV Prev. Care Visit 14:19:18 MOBILE PRODUCT MANAGER CPT-44815 Postop F/U Visit 14:47:51 MOBILE PRODUCT MANAGER CPT-34930 Postop F/U Visit 15:15:14 MOBILE PRODUCT MANAGER CPT-97956 Postop F/U Visit 14:41:43 CDT CPT-60943 Postop F/U Visit 15:47:46 CDT CPT-OV Office Visit 15:27:23 CDT CPT-OV Office Visit 17:20:34 CDT CPT-09721 Abx/Therapy Injection 15:05:57 CDT CPT-J1100 Decadron 8mg (Dexamethasone) 14:44:57 CDT CPT-J1040 Depo Medrol 80 mg (Methyl Prednisolone Acetate) 14:44: 57 CDT CPT-JTINJ Joint Injection 10:17:37 CDT CPT-02449 Administration 2+ single or combination vaccines inc oral 13:01:46 MOBILE PRODUCT MANAGER CPT-72526 Administration single or combination vaccine inc oral 13 :01:46 MOBILE PRODUCT MANAGER CPT-69120 Pneumovax 13:01:46 MOBILE PRODUCT MANAGER CPT-51499 Influenza split virus > age 3 13:01:46 MOBILE PRODUCT MANAGER CPT-35566 Administration single or combination vaccine inc oral 08 :56:49 CDT CPT-24113 Tdap 08:56:49 CDT
--- OUTSIDE RECORDS SUMMARY | 2017-03-22 03:23 | XMS REPORT | Clinical Summary ---
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 Jillina Frazellilian ELECTRICAL APPRENTICE 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 Anemia 285.9 Active Gab Padron MD Anemia, unspecified Conjunctivitis 372.30 Active Jillina Tyrel ELECTRICAL APPRENTICE Conjunctivitis, unspecified Sinusitis 473.9 Active Rodrigo Sarah ELECTRICAL APPRENTICE Unspecified sinusitis (chronic) FOOT PAIN, RIGHT ICD-729.5 [...] MD PhD FISSURE, ANAL ICD-565.0 Inactive Yolande Lindsya MD PhD CHEST PAIN, UNSPECIFIED ICD-786.50 Inactive [...] Generic Name ND Status Provider Patient Instruction CEFDINIR 300 MG CAPS 1 po BID x 10 days CEFDINIR 66044962279 Active Jillina Frazell ELECTRICAL APPRENTICE Active FLUTICASONE PROPIONATE 50 MCG/ACT SUSP 1 to 2 sprays each nostril daily 04/21 FLUTICASONE PROPIONATE 58224958596 Active Jillina Frazell ELECTRICAL APPRENTICE Active POLYTRIM 52655-6.1 UNIT/ML-% SOLN 1 gtt to affected eye q3h x 7 days POLYMYXIN B-TRIMETHOPRIM 54684086646 Active Jillina Frazell ELECTRICAL APPRENTICE Active CHERATUSSIN AC 100-10 MG/5ML SYRP 1 tsp by mouth every 4 hours as needed for cough GUAIFENESIN-CODEINE 34754042292 Active Gab Padron MD Active CEFTIN 500 MG TAB 1 twice a day CEFUROXIME AXETIL 41265493898 No Longer Active Gab Padron MD Active AZITHROMYCIN 250 MG TABS 2 po qd x 1 day, then 1 po qd x 4 days AZITHROMYCIN 01355500169 No Longer Active Silvestrellina Tyrel GAUTAM Active CLARITIN 10 MG TAB 1 tablet by mouth daily as needed for allergies LORATADINE 44381175655 Active Rodrigo Sarah APRN Active OXYCODONE HCL 5 MG ORAL CAPS 1 TAB PO Q HS OXYCODONE HCL 28369136489 No Longer Active Rodrigo Sarah APRN Active NIASPAN 500 MG ORAL CR-TABS 1 pill nightly x 1 week, then 2 pills nightly x 1 week, then 3 pills nightly x 1 week, then 4 pills nightly NIACIN (ANTIHYPERLIPIDEMIC) 04801046255 No Longer Active Rodrigo Sarah APRN Active NIACIN 500 MG TABS 1 pill by mouth nightly x 1 week, then 2 pills x 1 week, then 3 pills x 1 week, then 4 pills nightly - take after evening meal, with applesauce or an apple NIACIN 66670827589 No Longer Active Yolande Lindsay MD PhD Active FISH OIL 1000 MG CAPS 3 pills daily OMEGA-3 FATTY ACIDS 21801216715 Active Yolande Lindsay MD PhD Active TRIAMCINOLONE ACETONIDE 0.1 % CREA apply bid sparingly to rash TRIAMCINOLONE ACETONIDE 06187784017 Active Yolande Lindsay MD PhD Active FUROSEMIDE 20 MG TAB 1 tablet by mouth daily FUROSEMIDE 94075431109 Active Yolande Lindsay MD PhD Active LISINOPRIL 20 MG ORAL TABS 1 tab by mouth daily LISINOPRIL 17531227747 Active Yolande Lindsay MD PhD Active FUROSEMIDE 20 MG TABS 1 pill by mouth daily, for edema FUROSEMIDE 18429743786 No Longer Active Yolande Lindsay MD PhD Active ATORVASTATIN CALCIUM 10 MG TABS 1 pill by mouth daily, for cholesterol 09/06 ATORVASTATIN CALCIUM 88202327415 Active Yolande Lindsay MD PhD Active CALCIUM 600+D PLUS MINERALS 600-400 MG-UNIT ORAL CHEW 1 tab by mouth daily CALCIUM CARBONATE-VIT D-MIN 74862072415 No Longer Active Yolande Lindsay MD PhD Active CYCLOBENZAPRINE HCL 10 MG TABS 1 tablet by mouth three times daily as needed for muscle spasm/pain CYCLOBENZAPRINE HCL 95987310026 Active Yolande Lindsay MD PhD Active ONDANSETRON 4 MG TBDP 1 q4h PRN nausea ONDANSETRON 04026472472 Active Yolande Lindsay MD PhD Active ADULT ASPIRIN EC LOW STRENGTH 81 MG TBEC Take 1 tablet by mouth daily 2014 ASPIRIN 73795753363 No Longer Active Yolande Lindsay MD PhD Active ZOFRAN ODT 4 MG TBDP 1 pill dissolved by mouth every 4 hours if needed for nausea ONDANSETRON 41362125069 No Longer Active Yolande Lindsay MD PhD Active CEFTIN 500 MG TAB 1 twice a day CEFUROXIME AXETIL 33369752064 No Longer Active Yolande Lindsay MD PhD Active ALBUTEROL SULFATE 0.083 % NEBU SOLN one vial per nebulizer every 4-6 hours as needed ALBUTEROL SULFATE 90819502938 No Longer Active Alexis Ordaz MD Active DOXYCYCLINE HYCLATE 100 MG CAP 1 cap by mouth twice daily DOXYCYCLINE HYCLATE 92076521249 No Longer Active Yolande Lindsay MD PhD Active CYCLOBENZAPRINE HCL 10 MG TABS 1/2 - 1 tab by mouth three times daily if needed for spasms/pain CYCLOBENZAPRINE HCL 57882944266 No Longer Active Yolande Lindsay MD PhD Active TRILEPTAL 600 MG TABS Take one 1/2 tablet in Am and 1 tablet at night OXCARBAZEPINE 37012842993 Active Yolande Lindsay MD PhD Active AZITHROMYCIN 250 MG TABS 2 pills on day 1, then 1 pill daily x 4 days AZITHROMYCIN 42349607598 No Longer Active oYlande Lindsay MD PhD Active XOPENEX 1.25 MG/3ML NEBU 1 neb every 4 hours if needed for cough/congestion LEVALBUTEROL HCL 94364187904 No Longer Active Yolande Lindsay MD PhD Active DOXYCYCLINE HYCLATE 100 MG TAB 1 tab twice a day for 14 days 2013 DOXYCYCLINE HYCLATE 78243645575 No Longer Active Yolande Lindsay MD PhD Active LEVOTHYROXINE SODIUM 75 MCG TABS Take 1 tab daily LEVOTHYROXINE SODIUM 78905414405 Active Yolande Lindsay MD PhD Active PREVACID 30 MG CPDR Take 1 tablet by mouth daily-PRN LANSOPRAZOLE 22649441952 No Longer Active Yolande Lindsay MD PhD Active PA VITAMIN D-3 2000 UNIT CAPS 1 CAP PO DAILY CHOLECALCIFEROL 90765445782 No Longer Active Yolande Lindsay MD PhD Active CEFDINIR 300 MG CAPS by mouth twice a day CEFDINIR 49013286981 No Longer Active Gab Padron MD Active TOPAMAX 50 MG TABS 1 PO twice daily TOPIRAMATE 29999722321 Active Yolande Lindsay MD PhD Active AZITHROMYCIN 250 MG TABS 2 po qd x 1 day, then 1 po qd x 4 days AZITHROMYCIN 19275903428 No Longer Active Yolande Lindsay MD PhD Active DICLOFENAC SODIUM 75 MG TBEC 1 tablet by q 12 hours PRN headaches DICLOFENAC SODIUM 47859163176 No Longer Active Yolande Lindsay MD PhD Active FLONASE 50 MCG/ACT SUSP 1 spray each nostril am and hs FLUTICASONE PROPIONATE 04621728437 No Longer Active Todd Callaway MD Active ANUSOL-HC 25 MG SUPPOSITORY 1 rectally twice a day as needed for hemorrhoids HYDROCORTISONE JAYDEN (RECTAL) 01482415200 No Longer Active Yolande Lindsay MD PhD Active ANUSOL-HC 25 MG SUPPOSITORY 1 suppository rectally each evening as needed for anal fissure HYDROCORTISONE JAYDEN (RECTAL) 86940553681 No Longer Active LONNIE Iglesias Active VALIUM 5 MG TAB 1 po 30 minutes prior to your MRI DIAZEPAM 55296100380 No Longer Active LONNIE Iglesias Active METHOCARBAMOL 750 MG TABS 1 PO QID PRN METHOCARBAMOL 04605551694 No Longer Active Daphneila Wetzel APRN Active NITROSTAT 0.4 MG SUBL as directed NITROGLYCERIN 19705330725 No Longer Active Rodrigo Sarah ELECTRICAL APPRENTICE Active ROBAXIN-750 750 MG TABS 2 four times a day for 3 days as needed for muscle spasm, then 1 four times a day as needed METHOCARBAMOL 55370712567 No Longer Active Rodrigo Sarah APRN Active HYDROCODONE-ACETAMINOPHEN 5-325 MG TABS 1 q 4-6 hrs prn HYDROCODONE-ACETAMINOPHEN 32581425974 No Longer Active Jillina Tyrel ZAPATAN Active VERAPAMIL HCL CR 180 MG CR-TABS TAKE 1 TAB DAILY VERAPAMIL HCL 94313237981 No Longer Active Yolande Lindsay MD PhD Active BACTRIM DS 800-160 MG TAB 1 tab by mouth twice daily TRIMETHOPRIM-SULFAMETHOXAZOLE 52649569664 No Longer Active Yolande Lindsay MD PhD Active NEXIUM 40 MG PACK 1 by mouth daily ESOMEPRAZOLE MAGNESIUM 39287285766 No Longer Active Des Hines MD Active EPIPEN 2-CHARLETTE 0.3 MG/0.3ML OMARI as need for allergic reaction EPINEPHRINE 72871572034 Active Yolande Lindsay MD PhD Active NEXIUM 40 MG CPDR 1 PO Q D DAY ESOMEPRAZOLE MAGNESIUM 77934835387 No Longer Active Sadia Perry RN Active NEXIUM 40 MG PACK 1 by mouth daily NEXIUM 40 MG PACK ESOMEPRAZOLE MAGNESIUM Inactive VERAPAMIL HCL CR 180 MG CR-TABS TAKE 1 TAB DAILY VERAPAMIL HCL CR 180 MG CR-TABS VERAPAMIL HCL Inactive HYDROCODONE-ACETAMINOPHEN 5-325 MG TABS 1 q 4-6 hrs prn HYDROCODONE-ACETAMINOPHEN 5-325 MG TABS 784468 HYDROCODONE-ACETAMINOPHEN Inactive ROBAXIN-750 750 MG TABS 2 four times a day for 3 days as needed for muscle spasm, then 1 four times a day as needed ROBAXIN-750 750 MG TABS 957443 METHOCARBAMOL Inactive NITROSTAT 0.4 MG SUBL as directed NITROSTAT 0.4 MG SUBL NITROGLYCERIN Inactive METHOCARBAMOL 750 MG TABS 1 PO QID PRN METHOCARBAMOL 750 MG TABS 946125 METHOCARBAMOL Inactive VALIUM 5 MG TAB 1 po 30 minutes prior to your MRI VALIUM 5 MG TAB 193287 DIAZEPAM Inactive ANUSOL-HC 25 MG SUPPOSITORY 1 suppository rectally each evening as needed for anal fissure ANUSOL-HC 25 MG SUPPOSITORY 1216059 HYDROCORTISONE JAYDEN (RECTAL) Inactive ANUSOL-HC 25 MG SUPPOSITORY 1 rectally twice a day as needed for hemorrhoids ANUSOL-HC 25 MG SUPPOSITORY 9842220 HYDROCORTISONE JAYDEN (RECTAL) Inactive FLONASE 50 MCG/ACT SUSP 1 spray each nostril am and hs FLONASE 50 MCG/ACT SUSP FLUTICASONE PROPIONATE Inactive DICLOFENAC SODIUM 75 MG TBEC 1 tablet by q 12 hours PRN headaches DICLOFENAC SODIUM 75 MG TBEC 518641 DICLOFENAC SODIUM Inactive PA VITAMIN D-3 2000 UNIT CAPS 1 CAP PO DAILY PA VITAMIN D-3 2000 UNIT CAPS CHOLECALCIFEROL Inactive PREVACID 30 MG CPDR Take 1 tablet by mouth daily-PRN PREVACID 30 MG CPDR 845060 LANSOPRAZOLE Inactive DOXYCYCLINE HYCLATE 100 MG TAB 1 tab twice a day for 14 days 2013 DOXYCYCLINE HYCLATE 100 MG TAB 2494236 DOXYCYCLINE HYCLATE Inactive XOPENEX 1.25 MG/3ML NEBU 1 neb every 4 hours if needed for cough/congestion XOPENEX 1.25 MG/3ML NEBU 492709 LEVALBUTEROL HCL Inactive CYCLOBENZAPRINE HCL 10 MG TABS 1/2 - 1 tab by mouth three times daily if needed for spasms/pain CYCLOBENZAPRINE HCL 10 MG TABS 651007 CYCLOBENZAPRINE HCL Inactive ALBUTEROL SULFATE 0.083 % SHANT CARTER one vial per nebulizer every 4-6 hours as needed ALBUTEROL SULFATE 0.083 % [facility] 362590 ALBUTEROL SULFATE Inactive CEFTIN 500 MG TAB 1 twice a day CEFTIN 500 MG TAB 951945 CEFUROXIME AXETIL Inactive ZOFRAN ODT 4 MG TBDP 1 pill dissolved by mouth every 4 hours if needed for nausea ZOFRAN ODT 4 MG TBDP 062017 ONDANSETRON Inactive ADULT ASPIRIN EC LOW STRENGTH 81 MG TBEC Take 1 tablet by mouth daily 2014 ADULT ASPIRIN EC LOW STRENGTH 81 MG TBEC 635619 ASPIRIN Inactive CALCIUM 600+D PLUS MINERALS 600-400 [...] or an apple NIACIN 500 MG TABS 970828 NIACIN Inactive NIASPAN 500 MG ORAL CR-TABS 1 pill nightly x 1 week, then 2 pills nightly x 1 week, then 3 pills nightly x 1 week, then 4 pills nightly NIASPAN 500 MG ORAL CR-TABS NIACIN (ANTIHYPERLIPIDEMIC) Inactive OXYCODONE HCL 5 MG ORAL CAPS 1 TAB PO Q HS OXYCODONE HCL 5 MG ORAL CAPS 6003733 OXYCODONE HCL Inactive BACTRIM DS 800-160 MG TAB 1 tab by mouth twice daily BACTRIM DS 800-160 MG TAB 511968 TRIMETHOPRIM-SULFAMETHOXAZOLE Inactive AZITHROMYCIN 250 MG TABS 2 po qd x 1 day, then 1 po qd x 4 days AZITHROMYCIN 250 MG TABS 8706157 AZITHROMYCIN Inactive CEFDINIR 300 MG CAPS by mouth twice a day CEFDINIR 300 MG CAPS 914252 CEFDINIR Inactive AZITHROMYCIN 250 MG TABS 2 pills on day 1, then 1 pill daily x 4 days AZITHROMYCIN 250 MG TABS 9704489 AZITHROMYCIN Inactive DOXYCYCLINE HYCLATE 100 MG CAP 1 cap by mouth twice daily DOXYCYCLINE HYCLATE 100 MG CAP 7348556 DOXYCYCLINE HYCLATE Inactive FUROSEMIDE 20 MG TABS 1 pill by mouth daily, for edema FUROSEMIDE 20 MG TABS 487318 FUROSEMIDE Inactive AZITHROMYCIN 250 MG TABS 2 po qd x 1 day, then 1 po qd x 4 days AZITHROMYCIN 250 MG TABS 3820241 AZITHROMYCIN Inactive CEFTIN 500 MG TAB 1 twice a day CEFTIN 500 MG TAB 574541 CEFUROXIME AXETIL Inactive Immunizations Vaccine Administration Date Value Standard Description Seasonal influenza vaccine, injectable, containing preservative, for > 3 years old (Afluria, FluLaval, Fluzone, Fluvirin, Fluarix, Agriflu(>=18 yo)) Fluzone (>3 yrs.) [DHF703] Influenza, seasonal, injectable influenza immunization (Flu Vax) has been administered Influenza - Unspecified Formulation [CVX88] influenza virus vaccine, unspecified formulation Seasonal influenza vaccine, injectable, containing preservative, for > 3 years old (Afluria, FluLaval, Fluzone, Fluvirin, Fluarix, Agriflu(>=18 yo)) Fluzone (>3 yrs.) [XGW030] Influenza, seasonal, injectable pneumococcal immunization administered Pneumovax 23 [CVX33] pneumococcal polysaccharide vaccine, 23 valent dT (Diphtheria and Tetanus) booster given given Td(adult) unspecified formulation Boostrix (Tetanus toxoid, reduced diphtheria toxoid and acellular pertussis vaccine, adsorbed), booster Boostrix [UWC745] tetanus toxoid, reduced diphtheria toxoid, and acellular pertussis vaccine, adsorbed Vital Signs Date Name Value Unit Range Description blood pressure, diastolic - 8462-4 81 mm[Hg] [...] Panel - Chemistry sodium, serum 145 mmol/L 105-725 7511/06/22 potassium, serum 3.9 mmol/L 3.5-5.2 chloride, serum 109 mmol/L 98-107 carbon dioxide, venous blood 23.4 mmol/L 21.0-32.0 blood glucose 92 mg/dL 65-110 calcium, serum 8.2 mg/dL 8.5-10.1 urea nitrogen, blood 24 mg/dL 7-18 creatinine, serum 1.30 mg/dL 0.60-1.30 Lab Report: [facility] Advanced Lipid and Inlammation Panel /67773 - Chemistry cholesterol, serum 198 mg/dL 931-546 5330/04/30 HDL cholesterol, serum 65 mg/dL > OR=46 triglyceride, serum, fasting 82 mg/dL LDL cholesterol, serum 117 mg/dL cholesterol/HDL ratio, serum 3.0 calc < OR=5.0 cholesterol, serum 148 mg/dL 980-633 7810/09/02 HDL cholesterol, serum 55 mg/dL > OR=46 [...] Panel - Chemistry sodium, serum 144 mmol/L 133-281 1872/01/21 potassium, serum 4.2 mmol/L 3.5-5.2 chloride, serum [...] (L) - Chemistry sodium, serum 145 mmol/L 268-365 1386/09/02 potassium, serum 4.6 mmol/L 3.5-5.2 chloride, serum [...] 51 mg/dL 30-200 cholesterol, serum 173 mg/dL 920-304 4613/04/28 HDL cholesterol, serum 63 mg/dL 32-96 LDL [...] mg/dL Encounters Code Encounter Date Provider Facility CPT-76670 Level 3 Est. Patient 11:02:19 PRODUCTION RECORDER Gab Padron MD [facility] CPT-91388 Level 4 Est. Patient 22:24:31 PRODUCTION RECORDER Gab Padron MD [facility]-66391 Level 3 Est. Patient 18:33:46 PRODUCTION RECORDER Gab Padron MD [facility]-94534 Level 3 Est. Patient 16:19:11 CDT Yolande Lindsay MD [facility]-32607 Level 3 Est. Patient 18:59:14 CDT Yolande Lindsay MD [facility]-45666 Level 4 Est. Patient 21:29:26 CDT Yolande Lindsay MD [facility]-37301 Level 3 Est. Patient 07:37:45 CDT Yolande Lindsay MD [facility]-97584 Level 3 Est. Patient 17:03:46 CDT Yolande Lindsay MD [facility]-43410 Level 4 Est. Patient 20:02:13 PRODUCTION RECORDER Yolande Lindsay MD [facility] CPT-76809 Level 3 Est. Patient 16:02:07 PRODUCTION RECORDER Alexis Ordaz MD [facility]-01284 Level 3 Est. Patient 12:41:24 PRODUCTION RECORDER Yolande Lindsay MD [facility]-66587 Level 3 Est. Patient 15:41:20 PRODUCTION RECORDER Yolande Lindsay MD [facility]-99967 Level 3 Est. Patient 13:20:02 PRODUCTION RECORDER Yolande Lindsay MD [facility]-37359 Level 3 Est. Patient 15:00:38 CDT Jared Og MD [facility]-05509 Level 3 Est. Patient 10:22:32 CDT Yolande Lindsay MD [facility]-19434 Level 3 Est. Patient 17:12:58 CDT Yolande Lindsay MD [facility]-34240 Level 4 Est. Patient 13:30:58 CDT Yolande Lindsay MD PhD [facility]-43224 Level 4 New Patient 09:02:42 CDT Jared Og MD [facility]-04664 Level 3 Est. Patient 08:19:07 CDT Yolande Lindsay MD [facility]-02331 Level 3 Est. Patient 12:00:13 PRODUCTION RECORDER Gab Padron MD [facility]-19693 Level 3 Est. Patient 16:15:23 PRODUCTION RECORDER Yolande iLndsay MD [facility]-68208 Level 2 Est. Patient 19:47:15 CDT Yolande Lindsay MD [facility]-52630 Level 3 Est. Patient 21:38:31 CDT Yolande Lindsay MD [facility]-06528 Level 3 Est. Patient 10:25:12 CDT Adiel PERAZA [facility] CPT-56843 Level 4 Est. Patient 10:51:58 CDT Yolande Lindsay MD [facility]-75130 Level 3 Est. Patient 14:04:55 PRODUCTION RECORDER Rodrigo Sarah [facility]-94686 Level 3 Est. Patient 10:46:35 PRODUCTION RECORDER Rodrigo Sarah [facility]-27158 Level 3 Est. Patient 14:24:37 PRODUCTION RECORDER Yolande Lindsay MD [facility]-50460 Level 3 Est. Patient 17:41:58 PRODUCTION RECORDER Yolande Lindsay MD [facility]-34986 Level 2 Est. Patient 22:01:41 PRODUCTION RECORDER Rodrigo Sarah [facility]-10992 Level 2 Est. Patient 22:01:11 PRODUCTION RECORDER Rodrigo Sarah [facility] CPT-61501 Level 3 Est. Patient 10:12:29 PRODUCTION RECORDER Rodrigo Sarah [facility] CPT-56981 Level 3 Est. Patient 11:05:44 CDT Alexis Ordaz MD [facility] CPT-22833 Level 3 Est. Patient 14:57:20 CDT Yolande Lindsay MD [facility] CPT-79477 Level 3 Est. Patient 14:40:57 CDT Yolande Lindsay MD [facility] CPT-12225 Level 3 Est. Patient 20:55:40 CDT Yolande Lindsay MD [facility] CPT-66192 Level 3 Est. Patient 12:42:38 PRODUCTION RECORDER Yolande Lindsay MD [facility] CPT-86859 Level 3 Est. Patient 11:54:49 PRODUCTION RECORDER Des Hines MD [facility] CPT-47700 Level 3 Est. Patient 17:06:38 CDT Dewayne PERAZA [facility] Procedures Code Procedure Name Date Entry Date Standard Description [id number] Event Monitor - MC Transmission 09:12:32 CDT 08/06 [id number] Event Monitor - MC review and interp 09:12:32 CDT [id number] Event Monitor - MC recording 09:12:32 CDT CPT-49126 EKG Trac and Interp 16:50:22 CDT CPT-J1030 Depo Medrol 40 mg (Methyl Prednisolone Acetate) 17:05: 54 CDT CPT-J1100 Decadron 4mg (Dexamethasone) 17:05:54 CDT CPT-01736 Abx/Therapy Injection 17:05:54 CDT CPT-J1100 Decadron 4mg (Dexamethasone) 16:55:28 CDT CPT-J1030 Depo Medrol 40 mg (Methyl Prednisolone Acetate) 16:55: 28 CDT CPT-65638 Ankle Complete - Min 3V 15:58:50 CDT CPT-60661 Knee 3V 15:58:50 CDT CPT-22084 Hip comp min 2V 15:58:50 CDT CPT-J2270 Morphine Sulfate 10 mg 14:25:44 PRODUCTION RECORDER CPT-J2550 Phenergan 12.5 mg (Promethazine) 14:25:44 PRODUCTION RECORDER CPT-31356 Abx/Therapy Injection 14:25:44 PRODUCTION RECORDER CPT-J2550 Phenergan 12.5 mg (Promethazine) 14:08:03 PRODUCTION RECORDER CPT-J2270 Morphine Sulfate 10 mg 14:08:03 PRODUCTION RECORDER CPT-57480 Bladder Scan 15:00:38 CDT CPT-TCMM Transitional Care Mgmt-Moderate 09:52:22 CDT CPT-J1030 Depo Medrol 40 mg (Methyl Prednisolone Acetate) 10:55: 18 CDT CPT-J1100 Decadron 4mg (Dexamethasone) 10:55:18 CDT CPT-57310 Abx/Therapy Injection 10:55:18 CDT CPT-J1030 Depo Medrol 40 mg (Methyl Prednisolone Acetate) 10:22: 32 CDT CPT-J1100 Decadron 4mg (Dexamethasone) 10:22:32 CDT CPT-39857 Postop F/U Visit 14:37:13 CDT CPT-83086 Ankle Complete - Min 3V 17:11:58 CDT CPT-67917 Foot comp min 3V 17:11:58 CDT CPT-44541 Bladder Scan 09:56:58 CDT CPT-24872 Postop F/U Visit 09:56:58 CDT CPT-28962 Cystoscopy 09:02:42 CDT CPT-66389 Bladder Scan 09:02:42 CDT CPT-26456 Abd single AP View 16:00:35 CDT CPT-18922 Administration single or combination vaccine inc oral 10 :15:43 CDT CPT-91317 Influenza split virus > age 3 10:15:43 CDT CPT-47458 Nail Avulsion 09:24:57 CDT CPT-OV Office Visit 11:15:41 CDT CPT-31436 Abx/Therapy Injection 10:51:30 CDT CPT-J3301 Kenalog 40 mg (Triamcinolone Acetonide) 10:25:12 CDT CPT-J1100 Decadron 4mg (Dexamethasone) 10:25:12 CDT CPT-98463 Anoscopy diagnostic 10:36:12 CDT CPT-OV Office Visit 15:34:31 CDT CPT-88717 Abx/Therapy Injection 08:21:15 PRODUCTION RECORDER CPT-J1885 Toradol 60 mg (Ketorolac) 10:46:35 PRODUCTION RECORDER CPT-OV Office Visit 19:51:16 PRODUCTION RECORDER CPT-69735 Spec Collection and Handling Fee 14:34:18 PRODUCTION RECORDER CPT-PV Prev. Care Visit 14:19:18 PRODUCTION RECORDER CPT-84106 Postop F/U Visit 14:47:51 PRODUCTION RECORDER CPT-88109 Postop F/U Visit 15:15:14 PRODUCTION RECORDER CPT-03253 Postop F/U Visit 14:41:43 CDT CPT-42179 Postop F/U Visit 15:47:46 CDT CPT-OV Office Visit 15:27:23 CDT CPT-OV Office Visit 17:20:34 CDT CPT-01609 Abx/Therapy Injection 15:05:57 CDT CPT-J1100 Decadron 8mg (Dexamethasone) 14:44:57 CDT CPT-J1040 Depo Medrol 80 mg (Methyl Prednisolone Acetate) 14:44: 57 CDT CPT-JTINJ Joint Injection 10:17:37 CDT CPT-92705 Administration 2+ single or combination vaccines inc oral 13:01:46 PRODUCTION RECORDER CPT-26461 Administration single or combination vaccine inc oral 13 :01:46 PRODUCTION RECORDER CPT-03698 Pneumovax 13:01:46 PRODUCTION RECORDER CPT-59372 Influenza split virus > age 3 13:01:46 PRODUCTION RECORDER CPT-14257 Administration single or combination vaccine inc oral 08 :56:49 CDT CPT-23050 Tdap 08:56:49 CDT
--- OUTSIDE RECORDS SUMMARY | 2017-03-22 03:24 | XMS REPORT | Continuity of Care Document ---
Demographics x Preferred Language Unknown Marital Status Unknown Adventism Affiliation Unknown Race Unknown Ethnic Group Unknown Author Author [facility] Organization [facility] Address Unknown Phone Unavailable Allergies Active Description Code Type Severity Reaction Onset Reported/Identified Relationship to Patient Clinical Status Yes bee venom (honey bee) 6698 Drug Allergy N/A N/A Yes chlorhexidine 3674 Drug Allergy N/A N/A Yes Hydrocodone 1554 Drug Allergy N /A N/A Confirmed but inactive Yes Hydrocodone 1554 Drug Allergy N /A Nausea Yes lemon pepper Food Allergy N/ A throat swelling Yes niacin 1052 Drug Allergy N/A N/A Confirmed or Verified Yes Norflex 6675 Drug Allergy N/A N/A Yes Oxycodone 1558 Drug Allergy N/ A Nausea Yes Penicillins 476 Drug Allergy N/ A Hives~Nausea Yes POPPY SEEDS Food Allergy N/A throat swelling Yes sheeps milk Food Allergy N/A Hives~Nausea Yes Trazodone 4610 Drug Allergy N/ A hallucinations Yes bee venom (honey bee) 6698 Drug Allergy N/A N/A Yes bees Drug N/A N/A Yes chlorhexidine 3674 Drug Allergy N/A N/A Confirmed or Verified Yes chlorhexidine containing compounds 289 Drug N/A N/A Yes cloves Food Severe N/A Yes glonate Drug N/A N /A Yes lemon pepper Drug N/A N/A Yes lemon pepper Food Allergy N/ A throat swelling Yes niacin 1052 Drug Allergy N/A N/A Confirmed or Verified Yes Norflex 6675 Drug N/A N/A Yes orphenadrine 1648 Drug Allergy N/A N/A Confirmed or Verified Yes Oxycodone 1558 Drug Allergy N/ A N/A Confirmed or Verified Yes Oxycodone 1558 Drug Allergy N/ A Nausea Yes penicillin 3 Drug N/A N/A Yes Penicillins 476 Drug Allergy N/ A Hives~Nausea Yes Penicillins 476 Drug Allergy N/ A N/A Confirmed or Verified Yes pepper Drug N/A N/ A Yes poppy seeds Drug N/A N/A Yes POPPY SEEDS Food Allergy N/A throat swelling Yes sheeps milk Food Allergy N/A Hives~Nausea Yes sheeps milk Drug N/A N/A Yes traMADol Drug N/A N/A Yes Trazodone 4610 Drug Allergy N/ A hallucinations Yes Trazodone 4610 Drug N/A N/A Confirmed or Verified Yes chlorhexidine chlorhexidine Drug Allergy Severe SWELLING- ORAL RINSE 2016 Yes CHLORHEXIPINE GLONATE ORAL RINCE CHLORHEXIPINE GLONATE ORAL RINCE Drug Allergy Severe SWELLING 05/12/2016 Yes orphenadrine orphenadrine Drug Allergy Mild RASH 05/12/2016 Yes Penicillins Penicillins Drug Allergy Mild RASH 05/12/2016 Yes trazodone trazodone Drug Allergy Mild RASH 05/12/2016 Yes BEE STING BEE STING Drug Allergy Unknown UNKNOWN 05/12/2016 Yes chlorhexidine chlorhexidine Drug Allergy Unknown UNKNOWN 05/12/2016 Yes LEMON PEPER LEMON PEPER Drug Allergy Unknown UNKNOWN 05/12/2016 Yes POPPY SEEDS POPPY SEEDS Drug Allergy Unknown UNKNOWN 05/12/2016 Yes SHEEPS MILK SHEEPS MILK Drug Allergy Unknown UNKNOWN 05/12/2016 Medications There is no data. Problems Date Dx Coded Attending Type Code Diagnosis Diagnosed By 05/31/2013 LAURITA BUSTILLOS 625.9 FEM GENITAL SYMPTOMS NOS 05/31/2013 LAURITA BUSTILLOS 719.45 JOINT PAIN-PELVIS 05/31/2013 LAURITA BUSTILLOS 789.09 ABDOMINAL PAIN, OTHER 06/21/2013 LAURITA BUSTILLOS 719.45 JOINT PAIN-PELVIS 06/21/2013 LAURITA BUSTILLOS 721.3 LUMBOSACRAL SPONDYLOSIS 06/21/2013 LAURITA BUSTILLOS V57.1 PHYSICAL THERAPY NEC 07/02/2013 LAURITA BUSTILLOS 719.45 JOINT PAIN-PELVIS 07/02/2013 LAURITA BUSTILLOS 721.3 LUMBOSACRAL SPONDYLOSIS 07/02/2013 LAURITA BUSTILLOS V57.1 PHYSICAL THERAPY [facility] 07/16/2013 LAURITA BUSTILLOS 719.45 JOINT PAIN-PELVIS 07/16/2013 LAURITA BUSTILLOS 721.3 LUMBOSACRAL SPONDYLOSIS 07/16/2013 LAURITA BUSTILLOS V57.1 PHYSICAL THERAPY NEC 07/16/2013 LAURITA BUSTILLOS 719.45 JOINT PAIN-PELVIS 07/16/2013 LAURITA BUSTILLOS 721.3 LUMBOSACRAL SPONDYLOSIS 07/16/2013 LAURITA BUSTILLOS V57.1 PHYSICAL THERAPY NEC 09/11/2014 CHARLES CALLAHAN 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 09/11/2014 CHARLES CALLAHAN 585.9 CHRONIC RENAL DISEASE 09/11/2014 CHARLES CALLAHAN 593.9 RENAL URETERAL DIS NOS 09/19/2014 VIVIAN DUGGAN 625.9 FEM GENITAL SYMPTOMS NOS 11/22/2016 Vito HUTSON, Evelyn H81.10 Benign positional vertigo 01/04/2017 Vito HUTSON, Evelyn W57.xxxA Insect bite 02/01/2017 Evelyn Spears MD 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, initial encounter Procedures Code Description [place] [address] X-RAY EXAM OF PELVIS 05/31/2013 33870 X-RAY EXAM OF HIP 05/31/2013 70409 PT EVALUATION 06/21/2013 20766 THERAPEUTIC EXERCISES 06/21/2013 08706 PT EVALUATION 07/02/2013 46585 THERAPEUTIC EXERCISES 07/02/2013 20156 ROUTINE VENIPUNCTURE 07/18/2013 66759 METABOLIC PANEL TOTAL CA 07/18/2013 61524 COMPLETE CBC W/AUTO DIFF WBC 07/18/2013 99845 METABOLIC PANEL TOTAL CA 08/02/2014 32545 COMPLETE CBC W/AUTO DIFF WBC 08/02/2014 52936 ELECTROCARDIOGRAM, TRACING 08/02/[address] ABD & PELVIS W/O CONTRAST 09/11/2014 96702 TRANSVAGINAL US, NON-OB 09/19/2014 50058 X-RAY EXAM OF FOOT 05/24/2015 85539 EMERGENCY DEPT VISIT 05/24/2015 37363 COMP SCREEN MAMMOGRAM ADD- ON 06/04/2015 14707 MAMMOGRAM, SCREENING 06/04/2015 09756 EMERGENCY DEPT VISIT 06/26/2015 26002 HT MUSCLE IMAGE SPECT, MULT 09/05/2015 93130 CARDIOVASCULAR STRESS TEST 09/05/2015 A9500 TC99M SESTAMIBI 09/05/2015 J2785 REGADENOSON INJECTION 09/05/2015 A0425 GROUND MILEAGE 09/06/2015 A0427 ALS1-EMERGENCY 09/06/2015 16340 ROUTINE VENIPUNCTURE 09/06/[address] HEAD/BRAIN W/O DYE 09/06/2015 35772 COMPREHEN METABOLIC PANEL 09/06/2015 64864 DRUG SCREEN NON TLC DEVICES 09/06/2015 80430 URINALYSIS, AUTO W/SCOPE 09/06/2015 22603 GLYCOSYLATED HEMOGLOBIN TEST 09/06/2015 40534 ASSAY OF FREE THYROXINE 09/06/2015 14885 ASSAY THYROID STIM HORMONE 09/06/2015 52787 COMPLETE CBC W/AUTO DIFF WBC 09/06/2015 20110 RBC SED RATE, NONAUTOMATED 09/06/2015 68395 THER/PROPH/DIAG INJ, IV PUSH 09/06/2015 21345 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 09/06/2015 91334 SPECIAL SUPPLIES 09/06/2015 10627 EMERGENCY DEPT VISIT 09/06/2015 J7040 NORMAL SALINE SOLUTION INFUS 09/06/2015 15722 EMERGENCY DEPT VISIT 09/27/2015 62565 EMERGENCY DEPT VISIT 09/27/2015 00784 ROUTINE VENIPUNCTURE 10/25/2015 26939 X-RAY EXAM OF ABDOMEN 10/25/2015 44702 COMPREHEN METABOLIC PANEL 10/25/2015 48029 URINALYSIS, AUTO W/SCOPE 10/25/2015 13568 COMPLETE CBC W/AUTO DIFF WBC 10/25/2015 92620 HYDRATE IV INFUSION, ADD-ON 10/25/2015 55282 THER/PROPH/DIAG INJ, IV PUSH 10/25/2015 60759 EMERGENCY DEPT VISIT 10/25/2015 75070 EMERGENCY DEPT VISIT 10/25/2015 J2405 ONDANSETRON HCL INJECTION 10/25/2015 J7030 NORMAL SALINE SOLUTION INFUS 10/25/2015 Results Test Result Range CBC WITH DIFF - 06/21/13 00:00 BASO% 0.5 % 0-2 EOS% 0.0 % 0-7.0 HCT 35.6 % 36.9-47.0 HGB 11.8 G/DL 12.0-16.0 LYMPH% 35.2 % 20-40 MCH 29.5 PG 27-31 MCHC 33.1 G/DL 33-37 MCV 89.0 FL 81-99 MONO% 9.1 % 0-10.0 MPV 9.6 FL 7.3-10.4 NEUTRO% 55.2 % 40-70 PLT 177 10^3u 130-400 RBC 4.0 10^6u 4.2-5.4 RDW 13.1 % 11.5-15.5 WBC 4.2 10^3u 4.8-10.8 NEUTRO# 2.3 10^3u 1.5-7.5 LYMPH# 1.5 10^3u 0.9-4.0 MONO# 0.4 10^3u 0-0.8 EOS# 0.0 10^3u 0-0.6 BASO# 0.0 10^3u 0-0.1 UA - 06/21/13 00:00 PH 5.5 4.5-8.0 SG 1.020 1.003-1.035 UABILI NEGATIVE UABLD 1+ UACOLOR YEL UAGLU NEGATIVE UAKET NEGATIVE UALEUK NEGATIVE UANIT NEGATIVE UAURO 0.2 0-0.2 CLARITY CL PROTEIN NEGATIVE UA WBC NOWBC UA RBC NORBC SQUAMOUS EPITHELIAL CELLS FEW CMP - 06/21/13 00:00 ALB 3.7 G/DL 3.5-5 ALP 108 IU/L 32-92 ALT 23 IU/L 12-65 AST 12 IU/L 10-42 BCR 16.8 10-20 BUN 20 MG/DL 7-18 CA 8.9 MG/DL 8.4-10.2 CL 109 MEQ/L 98-107 CO2 22.6 MEQ/L 22-28 CREA 1.19 MG/DL 0.6-1.0 EGFR 48 eGFR >=60 GLU 90 MG/DL 70-105 K 4.6 MEQ/L 3.5-5.1 NA 140 MEQ/L 134-145 OSMSC 281.5 MOSML 280-300 TBIL 0.2 MG/DL 0.1-1.0 TP 7.5 G/DL 6.0-8.3 Albumin/Globulin Ratio 1.0 0-8 Anion Gap 8.4 8-16 CBC WITH DIFF - 07/16/13 00:00 BASO% 0.2 % 0-2 EOS% 0.0 % 0-7.0 HCT 36.7 % 36.9-47.0 HGB 12.2 G/DL 12.0-16.0 LYMPH% 34.6 % 20-40 MCH 29.0 PG 27-31 MCHC 33.2 G/DL 33-37 MCV 87.2 FL 81-99 MONO% 10.2 % 0-10.0 MPV 9.8 FL 7.3-10.4 NEUTRO% 55.0 % 40-70 PLT 185 10^3u 130-400 RBC 4.2 10^6u 4.2-5.4 RDW 13.4 % 11.5-15.5 WBC 4.4 10^3u 4.8-10.8 NEUTRO# 2.4 10^3u 1.5-7.5 LYMPH# 1.5 10^3u 0.9-4.0 MONO# 0.5 10^3u 0-0.8 EOS# 0.0 10^3u 0-0.6 BASO# 0.0 10^3u 0-0.1 BMP - 07/16/13 00:00 BCR 17.4 10-20 BUN 24 MG/DL 7-18 CA 9.0 MG/DL 8.4-10.2 CL 107 MEQ/L 98-107 CO2 26.6 MEQ/L 22-28 CREA 1.38 MG/DL 0.6-1.0 EGFR 40 eGFR >=60 GLU 89 MG/DL 70-105 K 4.6 MEQ/L 3.5-5.1 NA 141 MEQ/L 134-145 OSMSC 284.8 MOSML 280-300 Anion Gap 7.4 8-16 BLEEDING TIME - 07/18/13 00:00 BT 4.5 CBC WITH DIFF - 09/11/13 00:00 BASO% 0.7 % 0-2 EOS% 0.0 % 0-7.0 HCT 38.0 % 36.9-47.0 HGB 12.8 G/DL 12.0-16.0 LYMPH% 44.8 % 20-40 MCH 28.9 PG 27-31 MCHC 33.7 G/DL 33-37 MCV 85.8 FL 81-99 MONO% 9.9 % 0-10.0 MPV 9.6 FL 7.3-10.4 NEUTRO% 44.6 % 40-70 PLT 238 10^3u 130-400 RBC 4.4 10^6u 4.2-5.4 RDW 13.4 % 11.5-15.5 WBC 6.7 10^3u 4.8-10.8 NEUTRO# 3.0 10^3u 1.5-7.5 LYMPH# 3.0 10^3u 0.9-4.0 MONO# 0.7 10^3u 0-0.8 EOS# 0.0 10^3u 0-0.6 BASO# 0.1 10^3u 0-0.1 CMP - 09/11/13 00:00 ALB 3.8 G/DL 3.5-5 ALP 132 IU/L 32-92 ALT 29 IU/L 12-65 AST 15 IU/L 10-42 BCR 14.7 10-20 BUN 23 MG/DL 7-18 CA 9.4 MG/DL 8.4-10.2 CL 105 MEQ/L 98-107 CO2 18.5 MEQ/L 22-28 CREA 1.56 MG/DL 0.6-1.0 EGFR 35 eGFR >=60 GLU 114 MG/DL 70-105 K 3.8 MEQ/L 3.5-5.1 NA 140 MEQ/L 134-145 OSMSC 283.9 MOSML 280-300 TBIL 0.2 MG/DL 0.1-1.0 TP 7.9 G/DL 6.0-8.3 Albumin/Globulin Ratio 0.9 0-8 Anion Gap 16.5 8-16 RAPID MYCOPLASMA - 09/11/13 00:00 RAPMYCO P Negative RENAL PROFILE - 02/05/14 00:00 ALB 3.5 G/DL 3.5-5 BCR 11.9 10-20 BUN 17 MG/DL 7-18 CA 9.1 MG/DL 8.4-10.2 CL 108 MEQ/L 98-107 CO2 24.9 MEQ/L 22-28 CREA 1.43 MG/DL 0.6-1.0 EGFR 38 eGFR >=60 GLU 97 MG/DL 70-105 K 4.4 MEQ/L 3.5-5.1 NA 140 MEQ/L 134-145 OSMSC 280.9 MOSML 280-300 PO4 3.6 MG/DL 1.9-4.5 Anion Gap 7.1 8-16 PROTEIN ELECTRO SERUM - 02/05/14 00:00 PRELS1 6.7 g/dL 6.1-8.1 PRELS10 SEE NOTE PRELS2 3.9 g/dL 3.5-4.7 PRELS3 0.1 g/dL 0.1-0.3 PRELS4 0.7 g/dL 0.5-1.0 PRELS5 1.0 g/dL 0.8-1.4 PRELS6 1.0 g/dL 0.6-1.6 PRTN ELECT URINE RANDOM - 02/05/14 00:00 MALBCR1 102 mg/dL 20-320 UPEP1 5 mg/dL 5-24 UPEP10 SEE NOTE UPEP11 49 mg/g 21-161 UPEP2 0 % UPEP3 0 % UPEP4 0 % UPEP5 0 % UPEP6 0 % CBC WITH DIFF - 03/16/14 00:00 BASO% 0.3 % 0-2 EOS% 0.0 % 0-7.0 HCT 39.5 % 36.9-47.0 HGB 12.9 G/DL 12.0-16.0 LYMPH% 30.8 % 20-40 MCH 28.8 PG 27-31 MCHC 32.7 G/DL 33-37 MCV 88.2 FL 81-99 MONO% 7.6 % 0-10.0 MPV 9.7 FL 7.3-10.4 NEUTRO% 61.3 % 40-70 PLT 199 10^3u 130-400 RBC 4.5 10^6u 4.2-5.4 RDW 14.3 % 11.5-15.5 WBC 7.0 10^3u 4.8-10.8 NEUTRO# 4.3 10^3u 1.5-7.5 LYMPH# 2.1 10^3u 0.9-4.0 MONO# 0.5 10^3u 0-0.8 EOS# 0.0 10^3u 0-0.6 BASO# 0.0 10^3u 0-0.1 CMP - 03/16/14 00:00 ALB 3.9 G/DL 3.5-5 ALP 89 IU/L 25-72 ALT 31 IU/L 12-65 AST 20 IU/L 10-42 BCR 13.9 10-20 BUN 25 MG/DL 7-18 CA 9.1 MG/DL 8.4-10.2 CL 106 MEQ/L 98-107 CO2 21.4 MEQ/L 22-28 CREA 1.80 MG/DL 0.6-1.0 EGFR 29 eGFR >=60 GLU 93 MG/DL 70-105 K 4.1 MEQ/L 3.5-5.1 NA 140 MEQ/L 134-145 OSMSC 283.5 MOSML 280-300 TBIL 0.1 MG/DL 0.1-1.0 TP 8.0 G/DL 6.0-8.3 Albumin/Globulin Ratio 1.0 0-8 Anion Gap 12.6 8-16 LIP - 03/16/14 00:00 LIP 392 U/L 73-393 UA - 03/16/14 00:00 PH 6.0 4.5-8.0 SG 1.025 1.003-1.035 UABILI NEGATIVE UABLD NEGATIVE UACOLOR YEL UAGLU NEGATIVE UAKET NEGATIVE UALEUK NEGATIVE UANIT NEGATIVE UAURO 0.2 0-0.2 CLARITY HAZY PROTEIN NEGATIVE UA WBC R05 UA RBC R05 SQUAMOUS EPITHELIAL CELLS 2+ BACTERIA 1+ AMORPHOUS CRYSTALS FEW MUCOUS OCC RENAL PROFILE - 04/09/14 00:00 ALB 3.4 G/DL 3.5-5 BCR 16.4 10-20 BUN 21 MG/DL 7-18 CA 9.0 MG/DL 8.4-10.2 CL 109 MEQ/L 98-107 CO2 21.3 MEQ/L 22-28 CREA 1.28 MG/DL 0.6-1.0 EGFR 44 eGFR >=60 GLU 96 MG/DL 70-105 K 4.3 MEQ/L 3.5-5.1 NA 144 MEQ/L 134-145 OSMSC 289.7 MOSML 280-300 PO4 3.6 MG/DL 1.9-4.5 Anion Gap 13.7 8-16 CBC WITH DIFF - 07/31/14 00:00 BASO% 0.3 % 0-2 EOS% 0.0 % 0-7.0 HCT 33.1 % 36.9-47.0 HGB 11.0 G/DL 12.0-16.0 LYMPH% 30.3 % 20-40 MCH 29.3 PG 27-31 MCHC 33.2 G/DL 33-37 MCV 88.0 FL 81-99 MONO% 7.7 % 0-10.0 MPV 9.0 FL 7.3-10.4 NEUTRO% 61.7 % 40-70 PLT 175 10^3u 130-400 RBC 3.8 10^6u 4.2-5.4 RDW 14.2 % 11.5-15.5 WBC 6.1 10^3u 4.8-10.8 NEUTRO# 3.8 10^3u 1.5-7.5 LYMPH# 1.9 10^3u 0.9-4.0 MONO# 0.5 10^3u 0-0.8 EOS# 0.0 10^3u 0-0.6 BASO# 0.0 10^3u 0-0.1 BMP - 07/31/14 00:00 BCR 15.2 10-20 BUN 21 MG/DL 7-18 CA 7.8 MG/DL 8.4-10.2 CL 110 MEQ/L 98-107 CO2 23.4 MEQ/L 22-28 CREA 1.38 MG/DL 0.6-1.0 EGFR 40 eGFR >=60 GLU 85 MG/DL 70-105 K 4.2 MEQ/L 3.5-5.1 NA 143 MEQ/L 134-145 OSMSC 287.2 MOSML 280-300 Anion Gap 9.6 8-16 BACT VAGINOSIS ITIS PANEL - 09/30/14 00:00 BVCAND NOT DETECTED NOT DETECTED BVGARD NOT DETECTED NOT DETECTED BVTRIC NOT DETECTED NOT DETECTED CBC - 02/05/15 00:00 HCT 29.3 % 36.9-47.0 HGB 8.9 G/DL 12.0-16.0 MCH 27.8 PG 27-31 MCHC 30.4 G/DL 33-37 MCV 91.6 FL 81-99 MPV 9.9 FL 7.3-10.4 PLT 214 10^3u 130-400 RBC 3.2 10^6u 4.2-5.4 RDW 13.8 % 11.5-15.5 WBC 4.3 10^3u 4.8-10.8 RENAL PROFILE - 02/05/15 00:00 ALB 3.4 G/DL 3.5-5 BCR 20.0 10-20 BUN 26 MG/DL 7-18 CA 8.6 MG/DL 8.4-10.2 CL 105 MEQ/L 98-107 CO2 24.0 MEQ/L 22-28 CREA 1.30 MG/DL 0.6-1.0 EGFR 43 eGFR >=60 GLU 113 MG/DL 70-105 K 4.1 MEQ/L 3.5-5.1 NA 139 MEQ/L 134-145 OSMSC 283.1 MOSML 280-300 PO4 4.1 MG/DL 1.9-4.5 Anion Gap 10.0 8-16 UA - 02/05/15 00:00 PH 6.5 4.5-8.0 SG 1.010 1.003-1.035 UABILI NEGATIVE UABLD NEGATIVE UACOLOR YEL UAGLU NEGATIVE UAKET NEGATIVE UALEUK NEGATIVE UANIT NEGATIVE UAURO 0.2 0-0.2 UCX NO CLARITY CL PROTEIN NEGATIVE UA WBC NOWBC UA RBC R05 SQUAMOUS EPITHELIAL CELLS FEW BACTERIA RARE CBC WITH DIFF - 09/06/15 00:00 BASO% 0.4 % 0-2 EOS% 0.0 % 0-7.0 HCT 35.8 % 36.9-47.0 HGB 11.4 G/DL 12.0-16.0 LYMPH% 39.3 % 20-40 MCH 29.3 PG 27-31 MCHC 31.8 G/DL 33-37 MCV 92.0 FL 81-99 MONO% 9.7 % 0-10.0 MPV 9.4 FL 7.3-10.4 NEUTRO% 50.4 % 40-70 PLT 178 10^3u 130-400 RBC 3.9 10^6u 4.2-5.4 RDW 14.2 % 11.5-15.5 WBC 5.0 10^3u 4.8-10.8 NEUTRO# 2.5 10^3u 1.5-7.5 LYMPH# 2.0 10^3u 0.9-4.0 MONO# 0.5 10^3u 0-0.8 EOS# 0.0 10^3u 0-0.6 BASO# 0.0 10^3u 0-0.1 IMM GRANULOCYTE % 0.2 % IMM GRANULOCYTE # 0.0 10^3u 0-5 CMP - 09/06/15 00:00 ALB 3.5 G/DL 3.5-5 ALP 90 IU/L 25-72 ALT 31 IU/L 12-65 AST 21 IU/L 10-42 BCR 9.6 10-20 BUN 16 MG/DL 7-18 CA 8.2 MG/DL 8.4-10.2 CL 104 MEQ/L 98-107 CO2 14.9 MEQ/L 22-28 CREA 1.67 MG/DL 0.6-1.0 EGFR 32 eGFR >=60 GLU 95 MG/DL 70-105 K 4.2 MEQ/L 3.5-5.1 NA 135 MEQ/L 134-145 OSMSC 271.1 MOSML 280-300 TBIL 0.3 MG/DL 0.1-1.0 TP 7.3 G/DL 6.0-8.3 Albumin/Globulin Ratio 0.9 0-8 Anion Gap 16.1 8-16 DRUG SCREEN IN HOUSE - 09/06/15 00:00 MBAR N Negative MBENZO N Negative MCOCN N Negative MMAMP N Negative MMTD N Negative MOPIAT N Negative MPCP N Negative MTCA N Negative MTHC N Negative AMPHETAMINE N Negative UA - 09/06/15 00:00 PH 6.0 4.5-8.0 SG 1.010 1.003-1.035 UABILI NEGATIVE UABLD NEGATIVE UACOLOR YEL UAGLU NEGATIVE UAKET NEGATIVE UALEUK NEGATIVE UANIT NEGATIVE UAURO 0.2 0-0.2 UCX NO CLARITY CL PROTEIN NEGATIVE UA WBC R05 UA RBC NORBC SQUAMOUS EPITHELIAL CELLS 2+ BACTERIA RARE HA1C - 09/06/15 00:00 HA1C 5.2 % 4.5-6.2 SEDR - 09/06/15 00:00 SEDR 26 0-30 FREE T4 - 09/06/15 00:00 FT4 0.78 NG/DL 0.76-1.46 TSH - 09/06/15 00:00 TSH 0.61 UIUML 0.36-3.74 PLATELET COUNT - 05/12/16 07:12 PLATELET COUNT 173 k/cumm 150-400 PROTHROMBIN TIME WITH INR - 05/12/16 07:12 INTERNATIONAL NORMAL RATIO 1.0 0.9-1.1 PROTHROMBIN TIME 11.3 sec 10.0-12.9 PARTIAL THROMBOPLASTIN TIME - 05/12/16 07:12 PARTIAL THROMBOPLASTIN TIME 36 sec 25-37 CREATININE BEDSIDE - 05/12/16 09:21 METHOD Bedside CREATININE 1.3 mg/dL 0.6-1.0 Encounters ACCT No. Visit Date/Time Discharge Status Pt. Type Provider Facility Loc./Unit Complaint [id number] 06/04/2015 14:41:00 06/04/2015 14:41:00 DIS Outpatient EVELYN SPEARS [facility] RAD [id number] 06/03/2015 00:01:00 06/03/2015 23:59:59 CLS Outpatient SADIQ DANIEL [facility] PT [id number] 05/06/2015 14:51:00 06/02/2015 23:59:00 DIS Outpatient SDAIQ DANIEL [facility] PT [id number] 05/23/2015 23:20:00 05/24/2015 00:18:00 DIS Emergency JESSICA ROSE [facility] EMR [id number] 04/04/2015 00:01:00 04/22/2015 09:36:00 DIS Outpatient EULOGIO ERICKSON I [facility] PT [id number] 03/04/2015 00:01:00 04/03/2015 23:59:00 DIS Outpatient EULOGIO ERICKSON I [facility] PT [id number] 03/29/2015 16:58:00 03/29/2015 18:24:00 DIS Emergency HARRY RANGEL [facility] EMR [id number] 02/10/2015 12:47:00 03/03/2015 23:59:00 DIS Outpatient EULOGIO ERICKSON I [facility] PT [id number] 02/05/2015 15:42:00 02/05/2015 15:42:00 DIS Outpatient CHARLES CALLAHAN [facility] [id number] 01/24/2015 21:04:00 01/24/2015 23:30:00 DIS Emergency JESSICA ROSE [facility] EMR [id number] 01/24/2015 04:36:00 01/24/2015 04:36:00 DIS Outpatient JESSICA ROSE [facility] EMR [id number] 11/20/2014 12:36:00 11/20/2014 12:36:00 DIS Outpatient NOEMI WYLIE [facility] RAD [id number] 11/18/2014 12:30:00 11/18/2014 12:30:00 DIS Outpatient NOEMI WYLIE [facility] RAD [id number] 10/30/2014 06:10:00 10/30/2014 06:10:00 DIS Outpatient HARRY RANGEL [facility] RAD [id number] 09/30/2014 00:00:00 09/30/2014 00:00:00 DIS Outpatient VIVIAN DUGGAN [facility] URBAN [id number] 09/19/2014 07:45:00 09/19/2014 07:45:00 DIS Outpatient VIVIAN DUGGAN [facility] URBAN [id number] 09/11/2014 12:54:00 09/11/2014 12:54:00 DIS Outpatient CHARLES CALLAHAN [facility] RAD [id number] 08/09/2014 07:48:00 08/09/2014 07:48:00 DIS Outpatient LENKAEUNICE [facility] RAD [id number] 08/02/2014 07:00:00 08/02/2014 10:15:00 DIS Outpatient JUAN JOSE CERRATO [facility] OPS [id number] 07/26/2014 19:36:00 07/26/2014 20:30:00 DIS Emergency ROSAEUNICE Meeks [facility] EMR [id number] 07/26/2014 19:37:00 07/26/2014 19:37:00 DIS Outpatient MADRIEUNICE Meeks [facility] EMR [id number] 06/25/2014 14:54:00 06/25/2014 14:54:00 DIS Outpatient LAURITA BUSTILLOS [facility] RAD [id number] 04/24/2014 15:34:00 04/24/2014 15:34:00 DIS Outpatient MADRIJeannaEUNICE [facility] RAD [id number] 04/09/2014 13:19:00 04/09/2014 13:19:00 DIS Outpatient CHARLES CALLAHAN [facility] LAB [id number] 03/16/2014 20:38:00 03/16/2014 23:44:00 DIS Emergency CHRIS BILLINGSLEY [facility] EMR [id number] 03/13/2014 09:52:00 03/13/2014 09:52:00 DIS Outpatient CHARLES CALLAHAN [facility] RAD [id number] 03/01/2014 07:55:00 03/01/2014 07:55:00 DIS Outpatient CHARLES CALLAHAN [facility] RAD [id number] 02/05/2014 09:39:00 02/05/2014 09:39:00 DIS Outpatient CHARLES CALLAHAN [facility] LAB [id number] 01/27/2014 20:27:00 01/27/2014 21:00:00 DIS Emergency CHRIS BILLINGSLEY [facility] EMR [id number] 01/12/2014 19:51:00 01/12/2014 20:41:00 DIS Emergency CHRIS BILLINGSLEY [facility] EMR [id number] 09/19/2013 08:50:00 09/19/2013 23:59:59 CLS Outpatient EUNICE OG [facility] RESP [id number] 09/11/2013 20:18:00 09/12/2013 09:45:00 DIS Inpatient LEANA AVILEZ [facility] OBS [id number] 08/18/2013 14:56:00 08/18/2013 16:00:00 DIS Emergency LEANA AVILEZ Niyah [facility] EMR [id number] 08/01/2013 07:27:00 08/01/2013 07:27:00 DIS Outpatient OSVALDO BONNER [facility] RAD [id number] 07/18/2013 07:10:00 07/19/2013 15:00:00 DIS Inpatient BURAK CHOI [facility] OBS [id number] 07/03/2013 00:01:00 07/16/2013 14:51:00 DIS Outpatient LAURITA BUSTILLOS [facility] PT [id number] 06/05/2013 07:58:00 07/02/2013 23:59:00 DIS Outpatient LAURITA BUSTILLOS [facility] PT [id number] 06/25/2013 09:31:00 06/25/2013 09:31:00 DIS Outpatient MADRIL, EUNICE [facility] RAD [id number] 06/21/2013 09:48:00 06/21/2013 12:26:00 DIS Emergency DEBBI DORADO Niyah [facility] EMR [id number] 05/31/2013 08:47:00 05/31/2013 08:47:00 DIS Outpatient LAURITA BUSTILLOS [facility] RAD [id number] 06/25/2014 14:54:18 Document Registration [id number] 03/03/2014 00:00:00 Document Registration [id number] 03/03/2014 00:00:00 Document Registration [id number] 03/03/2014 00:00:00 Document Registration [id number] 03/03/2014 00:00:00 Document Registration [id number] 03/03/2013 00:00:00 Document Registration [id number] 03/03/2013 00:00:00 Document Registration [id number] 03/03/2013 00:00:00 Document Registration [id number] 03/03/2013 00:00:00 Document Registration [id number] 03/03/2013 00:00:00 Document Registration [id number] 03/17/2017 00:15:00 03/17/2017 01:25:00 DIS Emergency CHRIS BILLINGSLEY [facility] ED unknown [id number] 03/16/2017 23:54:00 03/16/2017 23:59:59 DIS Outpatient DEBBI DORADO [facility] [id number] 01/25/2017 00:52:22 01/25/2017 09:25:00 DIS EVELYN EVANS [facility] OBS anaphylaxis [id number] 01/24/2017 23:23:00 01/25/2017 00:50:00 DIS Emergency CHRIS BILLINGSLEY [facility] ED allergic reaction [id number] 01/23/2017 03:17:00 01/24/2017 09:55:00 DIS EVELYN EVANS [facility] OBS Acute Allergic Reaction [id number] 01/14/2017 09:13:35 01/14/2017 23:59:59 DIS Outpatient CHARLES CALLAHAN [facility] LAB labwork [id number] 10/06/2016 08:07:23 10/06/2016 10:45:00 DIS Outpatient GIOVANA TRA Seaman [facility] Surgery EGD w / dilitation [id number] 08/02/2016 12:50:21 08/02/2016 23:59:59 CLS Outpatient BURAK CHOI [facility] RAD rt side renal mass [id number] 07/30/2016 15:09:17 07/30/2016 23:59:59 CLS Outpatient EVELYN SPEARS [facility] LAB lab [id number] 06/07/2016 08:10:33 06/07/2016 23:59:59 CLS Outpatient EVELYN SPEARS [facility] RAD screening [id number] 05/14/2016 18:07:17 05/14/2016 23:59:59 CLS Outpatient DENIZ, CHRIS [facility] [id number] 05/14/2016 16:34:00 05/14/2016 18:30:00 DIS Emergency DENIZCHRIS FRANCISCO [facility] ED SOB [id number] 04/08/2016 08:43:26 04/08/2016 23:59:59 CLS Preadmit [facility] RAD check lung in prone position prior to scheduling cyroblation/ tumor rt kidney [id number] 03/08/2016 13:54:34 03/08/2016 23:59:59 CLS Outpatient CHARLES CALLAHAN [facility] RAD N18.2, FOLLOW UP RENAL LESION FROM 2013 [id number] 10/30/2015 06:17:00 10/30/2015 10:40:00 DIS Inpatient BURAK CHOI [facility] OPS [id number] 09/27/2015 20:51:00 09/27/2015 21:40:00 DIS Emergency LEONARD SALAZAR [facility] EMR [id number] 09/06/2015 14:45:00 09/06/2015 17:52:00 DIS Outpatient EVELYN SPEARS [facility] OBS [id number] 09/06/2015 10:48:00 09/06/2015 10:48:00 DIS Outpatient DEBBI DORADO Niyah [facility] EMR [id number] 09/05/2015 06:10:00 09/05/2015 06:10:00 DIS Outpatient HARRY RANGEL [facility] RAD [id number] 07/04/2015 00:01:00 07/10/2015 09:48:00 DIS Outpatient SADIQ DANIEL [facility] PT [id number] 06/03/2015 00:01:00 07/03/2015 23:59:00 DIS Outpatient SADIQ DANIEL [facility] PT [id number] 06/26/2015 21:04:00 06/26/2015 22:03:00 DIS Emergency CHRIS BILLINGSLEY [facility] EMR [id number] 10/24/2015 23:32:00 Document Registration [id number] 03/03/2015 00:00:00 Document Registration [id number] 05/12/2016 06:41:00 05/12/2016 14:40:00 DIS Outpatient Grace HUTSON, [facility] W.RAC [id number] 02/18/2017 15:12:02 ACT Unknown Vito HUTSON, Evelyn
[2017-03-22] MEDS: LEVOTHYROXINE 88 MCG (LEVOTHORID) TAB PO SCH (06:03)
[2017-03-22 06:04] VITALS: BP 111/72
--- NOTE | 2017-03-22 07:05 | HISTORY AND PHYSICAL ---
DATE OF SERVICE: 03/21/2017 CHIEF COMPLAINT: Left-sided weakness, difficulty with walking. HISTORY OF PRESENT ILLNESS: The patient is a 56-year-old disabled female with past medical history significant for learning disability, hypertension, lumbar and cervical spine surgery and ischemic CVA with left-sided hemiparesis at the age of 29, who presented to [facility] at [place], [place] with left-sided weakness and dysarthria, slurred speech. The patient initially was seen at a hospital in [place], [place] her homet[place] where CT of the head was negative for hemorrhage. The patient declined TPA treatment by the ED physician. The patient was admitted to [place], where she had an MRI of the brain, which was apparently negative. She was felt to have possible conversion disorder. Nonetheless, she was referred to inpatient rehabilitation unit as she continued with slurred speech, left-sided facial droop and left-sided weakness with resulting decline in her functional independence. She had been independent for ADLs and mobility prior to this without a gait aid. Currently she is min assist for dressing and bathing and toilet transfers.She is min assist for bed mobility and gait with a WW. PAST MEDICAL HISTORY: Stroke at age 29, hypertension, kidney cancer, hypothyroidism, congestive heart failure, sleep apnea, does not use CPAP, depression, hyperlipidemia. PAST SURGICAL HISTORY: Appendectomy, cholecystectomy, hysterectomy, Margot fundoplication, tubal ligation, cervical spine surgery, lumbar spine surgery at [facility]. ALLERGIES: NORFLEX, PENICILLIN, TRAMADOL, TRAZODONE. ALLERGIES TO TREE NUTS. FAMILY HISTORY: Noncontributory. SOCIAL HISTORY: She states she finished the tenth grade and she has a learning disability, has not apparently worked. She lives with her spouse in [place], [place] in a one story home. REVIEW OF SYSTEMS: Ten-point review of systems significant for slurred speech and left-sided weakness. MEDICATIONS: Xanax 0.5 mg p.o. t.i.d. as needed for anxiety, triamcinolone cream t.i.d. to rash, amlodipine 10 mg p.o. daily, Zyrtec 10 mg p.o. daily, Colace 100 mg p.o. b.i.d., ASA 325 mg p.o. daily, topiramate 50 mg p.o. b.i.d., senna 1 tablet p.o. daily p.r.n. constipation, Lipitor 80 mg p.o. daily, levothyroxine 88 mcg p.o. daily. PHYSICAL EXAMINATION: GENERAL: Significant for a female appearing her stated age, sitting in a Ziggy chair, in no acute distress. VITAL SIGNS: Within normal limits. She is afebrile. HEENT: Vision, hearing grossly intact. She has mild dysarthria associated with a left labial droop. She does report sensitivity to bright light in the right eye. No oral lesion is noted. NECK: Supple without mass. HEART: Regular rhythm. CHEST: Clear. ABDOMEN: Soft, nontender. Bowel sounds present. EXTREMITIES: Trace edema at both ankles. No calf tenderness. MUSCULOSKELETAL: The patient has functional passive range of motion of all 4 extremities. NEUROLOGIC: She has a mild dysarthria, left labial droop, a left hemiparesis more so in the upper limb than lower limb. She has 5/5 strength on the RT LE Left LE hip flex 2/5 knee ext 2+/5 dorsiflexion 3_/5 Left UE 3+/5 strength RT UE functional strength She has decreased coordination LUE.. Sensation is grossly intact to touch. Cognition appears mildly slowed, but her speech is slow with mild dysarthria. IMPRESSION: 1. Ambulatory dysfunction secondary to left hemiparesis associated with dysarthria and left labial droop, felt to be due to conversion disorder as imaging studies negative. 2. Disability for many years. The patient reports due to learning disability. 3. Hypertension, controlled with medication. 4. Hypothyroidism, on replacement. 5. Sleep apnea, does not utilize CPAP. 6. Depression, on medication. 7. Hyperlipidemia, on statin. 8. Status post lumbar and cervical spine surgery as per patient at [facility]. PLAN: The patient will have a comprehensive program of inpatient rehabilitation with goal of maximizing level of functional independence prior to discharge home with spouse. The patient will have PT, OT 90 minutes per day each discipline, 5 days a week for 2 weeks with goal of maximizing level of functional independence prior to discharge home with spouse. The patient will have speech therapy for speech and cognition assessment treat as indicated 3 to 5 times a week for 30 to 45 minutes per day with PT, OT seeing the patient less during those days for 1 to 2 weeks. Rehabilitation nursing to assist with bowel, bladder, skin care, medication administration, pain management. Social service to assist for discharge planning and community reentry. We will consult Dr. Carlton to assist with medical management at this time. The patient's case was discussed with Dr. Camacho and a hospitalist from [facility]. We will consult [facility] for psych assessment. ESTIMATED LENGTH OF STAY: Two weeks. PROGNOSIS: Rehab prognosis appears good for goal of discharging home with spouse, modified independent to supervision for ADLs and mobility skills. DIET: Heart healthy. CODE STATUS: Full code. Job ID: [id number] DocumentID: [id number] Dictated Date: 03/21/2017 20:51:39 Surveillance Sensor Operator Date: 03/21/2017 22:26:37 Dictated By: REBEKA CAMACHO MD MTDD
--- NOTE | 2017-03-22 07:52 | Consultation ---
History of Present Illness History of Present Illness Patient Consulted On(josiane/time) 03/22/17 07:47 Time Seen by Provider: 07:45 History of Present Illness patient came from a [facility]. Patient states on the had a flash and headache and couldn't feel thinking Patient states she now speaks slowly. Patient states to droop on the left side of the mouth is worse. Patient had age 29 had a CVA and left-sided weakness. Patient had an MRI of the brain which was negative. Patient possibly has a conversion disorder. Patient states she had slurred speech and left-sided weakness. Patient has a history of bipolar, hypertension, kidney cancer, hypothyroid, CHF , sleep apnea without CPAP. Depression . Surgeries. Appendectomy, gallbladder, hysterectomy, knee son, tubal ligation, cervical spine, lumbar spine at [facility]. Allergies and Home Medications Allergies Coded Allergies: Penicillins (Verified Allergy, Intermediate, HIVES, 03/21/17) tree nut (Verified Allergy, Intermediate, throat swelling, 03/21/17) trazodone (Verified Adverse Reaction, Intermediate, hallucinations, ) Past Knsqrzp-Ytsmyy-Gsevig Hx Patient Social History Alcohol Use: Denies Use Recreational Drug Use: No Smoking Status: Never a Smoker Recent Foreign Travel: No Contact w/Someone Who Travel: No Recent Infectious Disease Expo: No Recent Hopitalizations: Yes Immunizations Up To Date Date of Influenza Vaccine: Jan 11, 2017 Seasonal Allergies Seasonal Allergies: Yes Surgeries History of Surgeries: Yes Respiratory History of Respiratory Disorde: No Cardiovascular History of Cardiac Disorders: Yes Neurological History of Neurological Disord: Yes Reproductive System : No Genitourinary History of Genitourinary Disor: No Gastrointestinal History of Gastrointestinal Di: No Musculoskeletal History of Musculoskeletal Dis: No Endocrine History of Endocrine Disorders: No HEENT History of HEENT Disorders: No Cancer History of Cancer: Yes Cancer: Kidney Psychosocial History of Psychiatric Problem: Yes Behavioral Health Disorders: Suicide Attempts, Bipolar Integumentary History of Skin or Integumenta: No Blood Transfusions History of Blood Disorders: Yes Adverse Reaction to a Blood Tr: No Family Medical History Family Medial History: Alcoholism G8 BROTHER Arthritis 19 MOTHER Cardiovascular disease 19 FATHER 19 MOTHER Cataracts 19 FATHER 19 MOTHER Coronary thrombosis G8 SISTER Dementia 19 MOTHER Diabetes mellitus G8 SISTER G8 SISTER Drug abuse G8 BROTHER Dysphasia G8 BROTHER Hypertension 19 MOTHER Psychosocial problem 19 MOTHER Respiratory disorder G8 BROTHER Severe allergy G8 SISTER Thyroid disease 19 MOTHER G8 SISTER Review of Systems-General Constitutional: weakness EENTM: no symptoms reported, other (drooping left side of mouth) Respiratory: no symptoms reported, other (pulmonary hypertension) Cardiovascular: no symptoms reported Gastrointestinal: no symptoms reported Genitourinary: no symptoms reported Physical Exam-General Problems Physical Exam Vital Signs Vital Sign - Last 12Hours 03/21/17 03/21/17 19:45 20:35 Temp 98.8 Pulse 73 Resp 17 B/P (MAP) 132/72 (92) Pulse Ox 92 O2 Delivery Room Air Capillary Refill : General Appearance: WD/WN, no apparent distress Eyes: Bilateral Eye Normal Inspection HEENT: normal ENT inspection, other (left side of mouth slight droop) Neck: non-tender, full range of motion Respiratory: chest non-tender, lungs clear, no respiratory distress, no accessory muscle use Cardiovascular: regular rate, rhythm, no murmur Gastrointestinal: non tender, soft Assessment/Plan Assessment/Plan Admission Diagnosis/Plan ecent CVA. Past history of CVA. history of hypertension. Hyperlipidemia. Conversion reaction maybe Clinical Quality Measures DVT/VTE Risk/Contraindication: Risk Factor Score Per Nursin RFS Level Per Nursing on Admit: 4+=Very High NEPTALI SALOMON DO Mar 22, 2017 7:52 am
[2017-03-22] MEDS: amLODIPine 5 MG (NORVASC) TAB PO SCH (08:49)
[2017-03-22] MEDS: ASPIRIN E.C. 325 MG (ECOTRIN) TABLET PO SCH (08:49)
[2017-03-22] MEDS: LORATADINE (CLARITIN) 10 MG TAB PO SCH (08:49)
[2017-03-22] MEDS: toPIRamate 100 MG (TOPAMAX) TAB PO SCH ×2 (08:49→20:27)
[2017-03-22] MEDS: TRIAMCINOLONE 0.1% CR (KENALOG) 15 GM TUBE TOP SCH ×2 (08:50→20:27)
[2017-03-22] MEDS: OXcarbazepine (TRILEPTAL) 300 MG TAB PO SCH ×2 (08:50→20:27)
[2017-03-22] MEDS: DOCUSATE SODIUM 100 MG (COLACE) CAP PO SCH ×2 (08:50→20:26)
--- NOTE | 2017-03-22 09:01 | Physical Therapy Evaluation ---
PT Evaluation-General Medical Diagnosis Admission Date Mar 21, 2017 at 19:26 Medical Diagnosis: left sided weakness, difficulty walking Onset Date: Mar 21, 2017 Therapy Diagnosis Therapy Diagnosis: impaired mobility, strength, endurance Height/Weight Height (Feet): 5 Height (Inches): 3.00 Weight (Pounds): 249 Weight (Ounces): 0.4 Precautions Precautions/Isolations: Fall Prevention, Standard Precautions Referral Physician: Doug Reason for Referral: Evaluation/Treatment Medical History Additional Medical History Stroke at age 29, hypertension, kidney cancer, hypothyroidism, congestive heart failure, sleep apnea, does not use CPAP, depression, hyperlipidemia. PAST SURGICAL HISTORY: Appendectomy, cholecystectomy, hysterectomy, Margot fundoplication, tubal ligation, cervical spine surgery, lumbar spine surgery at [facility]. Reviewed History: Yes Social History Home: Single Level Current Living Status: Spouse Entry Into Home: Stairs Without Railing PT Steps Into Home: 2 Prior/Core FIM Prior Level of Function Functional [place] Measure 0=Not Assessed/NA 4=Minimal Assistance 1=Total Assistance 5=Supervision or Setup 2=Maximal Assistance 6=Modified [place] 3=Moderate Assistance 7=Complete [place] Bed Mobility: 7 Transfers (B,C,W/C) (FIM): 7 Gait: 7 PT Evaluation-Current Subjective Patient in recliner pre tx, agrees to PT, she states she has just slight pain from a headache. Patient states that she has light sensitivity in her right eye. Pt/Family Goals "to get back to normal and go home" Objective Patient Orientation: Person, Place, Situation ROM/Strength ROM Lower Extremities WNL Strenght Lower Extremities right lower extremity 5/5 gross, left lower extremity (hip flexion 2/5, knee flexion 2/5, knee extension 2+/5, dorsiflexion 3-/5) Neuromuscular (Tone, Coordination, Reflexes) Patient has no abnormally low or high tone in her left leg. She has no babinski reflex or nava reflex and does not have abnormal clonus. She has no complaints of changes in her hearing. Patient has normal tracking but has impaired peripheral vision bilaterally. Patient states that she has had trigeminal neuralgia. Patient has no deviation in her smile seems to have no facial droop. Sensory Hearing: Functional Sensation Right Lower Extremit: Intact Sensation Left Lower Extremity: Intact Transfers Functional [place] Measure 0=Not Assessed/NA 4=Minimal Assistance 1=Total Assistance 5=Supervision or Setup 2=Maximal Assistance 6=Modified [place] 3=Moderate Assistance 7=Complete IndependenceIRFPAI Quality Coding Scale 6 Independent with activity with or without an assistive device 5 Patient requires set up or clean up by helper. Patient completes activity by themselves 4 Supervision or touching assist (CGA). [place] provide cues , steadying assist 3 The helper provides less than half the effort to complete the activity 2 The helper provides more than half the effort to complete the activity 1 Dependent. The helper does all the effort to complete an activity 7 Patient refused to complete or attempt activity 9 The patient did not perform the activity before the current illness or injury 88 Not attempted due to Medical conditions or safety concerns Transfers (B, C, W/C) (FIM): 4 Scootin Rollin Roll Left to Right (QC): 4 Supine to/from Sit: 5 Sit to/from Stand: 4 Sit to Lying (QC): 4 Lying to Sitting/Side of Bed(Q: 4 Sit to Stand (QC): 4 Chair/Lin-gv-Hlwun Xfer(QC): 4 Car Transfer (QC): 4 Patient performs bed mobility with SBA, transfers with CGA, car transfer with CGA. Cues for safety and hand placement. Gait Does the Patient Walk?: Yes Mode of Locomotion: Walk Anticipated Mode of Locomotion: Walk Gait (FIM): 4 Walk 10 feet (QC): 4 Walk 50 ft with 2 Turns(QC): 4 Walk 150 ft (QC): 4 Walking 10ft/uneven surface-QC: 4 Distance: 150'x2 Gait Level of Assist: 4 Gait Persons Needed: 1 Gait Assistive Device: FWW Comments/Gait Description Patient can ambulate 150' with a rolling walker with CGA, including 50' with at least 2 turns of 90 degrees and 10' over an uneven surface. Patient has no knee hyperextension, no foot drop, has heel strike on the left side but not a good one. Patient tends to mostly step with flat feet on both sides with small slow steps but does have a slight heel strike. Wheelchair Training Does the Pt Use a Wheelchair?: No Stairs Stairs (FIM): 2 #of Steps: 4 Level of Assist: 4 1 Step (curb) (QC): 4 4 Steps (QC): 4 12 Steps (QC): 88 Patient can go up and down 4 steps using 2 handrails with CGA. She needs cues for foot placement and safety. Patient can ascend/descend the steps with either leg first. Balance Sitting Static: Normal Sitting Dynamic: Normal Standing Static: Fair Standing Dynamic: Fair Picking up an Object (QC): 88 Treatment LAQ alternating for 5 min Assessment/Needs Patient has impairments in mobility, strength, and endurance. She shows a lot of inconsistencies in her deficits, for instance, she has weak strength in the left LE but can perform bed mobility and stairs and ambulation without difficulty. All testing for an upper motor neuron lesion was negative. Rehab Potential: Fair PT Short Term Goals Short Term Goals Time Frame: Mar 29, 2017 Transfers (B,C,W/C) (FIM): 5 Gait (FIM): 5 Gait Distance Comment: 200' Gait Level of Assist: 5 Gait Assistive Device: FWW PT [facility] Goals [employer] Intern Goals PT [facility] Goals Time Frame: Apr 12, 2017 Transfers (B,C,W/C) (FIM): 6 Sit to Lying (QC): 6 Lying-Sitting on Side/Bed(QC): 6 Sit to Stand (QC): 6 Rollin Roll Left to Right (QC): 6 Chair/Edr-ry-Bmzuh Xfer(QC): 6 Car Transfer (QC): 6 Gait (FIM): 6 Distance: 300' Walk 10 feet (QC): 6 Walk 10ft-Uneven Surface(QC): 6 Walk 50ft with 2 Turns (QC): 6 Walk 150 ft (QC): 6 Gait Level of Assist: 6 Gait Assistive Device: FWW Stairs (FIM): 5 # of Steps: 12 1 Step (curb) (QC): 4 4 Steps (QC): 4 12 Steps (QC): 4 Stairs Level Of Assist: 5 Picking up an Object (QC): 4 PT Plan Problem List Problem List: Activity Tolerance, Functional Strength, Safety, Balance, Gait, Transfer, Bed Mobility Treatment/Plan Treatment Plan: Continue Plan of Care Treatment Plan: Bed Mobility, Education, Functional Activity Camille, Functional Strength, Group Therapy, Gait, Safety, Therapeutic Exercise, Transfers Treatment Duration: Apr 12, 2017 Frequency: At least 5 of 7 days/Wk (IRF) Estimated Hrs Per Day: 1.5 hours per day Patient and/or Family Agrees t: Yes Safety Risks/Education Patient Education: Gait Training, Transfer Techniques, Steps, Correct Positioning, Disease Process, Safety Issues Teaching Recipient: Patient Teaching Methods: Demonstration, Discussion Response to Teaching: Reinforcement Needed Discharge Recommendations Plan Patient will perform bed mobility and transfer training, balance and endurance training, functional strengthening, stair training, gait training, and education , to improve functional mobility and independence at home. Therapy D/C Recommendations: Home w/ Family Support Time/GCodes Time In: 800 Time Out: 900 Total Billed Treatment Time: 60 Total Billed Treatment 1 visit EV 30' GT 15' FA 15' AZAEL LOPEZ PT Mar 22, 2017 09:01
[2017-03-22] MEDS ORDERED: FURO20TA4 PO (09:22)
[2017-03-22] MEDS ORDERED: CETI10TA17 PO (09:22)
[2017-03-22] MEDS ORDERED: LEVO88TA54 PO (09:22)
[2017-03-22] MEDS ORDERED: ATOR10TA66 PO (09:22)
[2017-03-22] MEDS ORDERED: ASPI-808 PO (09:22)
[2017-03-22] MEDS ORDERED: EPIN0.3P3 INJ (09:22)
[2017-03-22] MEDS ORDERED: TOPI50TA13 PO (09:22)
[2017-03-22] MEDS ORDERED: LISI40TA PO (09:22)
[2017-03-22] MEDS ORDERED: TR1C15 TOP (09:22)
[2017-03-22] MEDS ORDERED: OXCA600T PO (09:22)
[2017-03-22] MEDS ORDERED: ALPR0.5T7 PO (09:22)
--- NOTE | 2017-03-22 11:50 | PM&R Post Admission Assessment ---
Post Admission Physician Asses The preadmission screen agrees with the post admission assessment that the patient is a good candidate for inpatient rehabilitation. The patient will have a comprehensive program of inpatient rehabilitation with a goal of maximizing level of functional independence prior to discharge home with family and HHC. The patient will have PT/OT ninety minutes per day, each discipline, five days a week for gait, strengthening, conditioning, balance, ADLs, any patient/family/caregiver training as necessary. Speech therapy to do cognitive assessment and treat as indicated. Rehabilitation nursing to assist with bowel, bladder, skin, medication administration, pain management. Harness Fitter to assist with discharge planning, community reentry. SCD's for DVT prophylaxis. She appears to be well motivated to participate in three hours of therapy a day. She should be able to tolerate three hours of therapy a day from a medical standpoint. She should benefit from the three hours of therapy a day. She has a reasonable discharge plan, reasonable discharge rehabilitation goals and a supportive family. She has various comorbidities that need to be closely monitored with medications and treatments adjusted on a daily basis as needed. These include: HTN ZEE Depression Prior Lumbar and C spine surgery Learning disability Barriers to discharge for this patient who had been independent prior to this are for her to be modified independent to supervision for ADLs and mobility skills prior to discharge home with family and HHC, so as to lessen the burden of the caregivers. Risks for this patient include: 1. Fall 2. Fracture 3. DVT 4. Pulmonary embolism 5. Poorly controlled HTH 6. Skin breakdown 7. Contractures 8. Poorly controlled pain 9. Urinary retention 10. UTI 11. Respiratory infection 12. Aspiration Estimated Length of Stay: 14 days Prognosis: Rehab prognosis appears good for goal of discharge home with family modified independent to supervision for ADLs and mobility skills. REBEKA ANDERSON MD Mar 22, 2017 11:49
--- NOTE | 2017-03-22 11:51 | Occupational Therapy Eval ---
OT Evaluation-General/PLF Medical Diagnosis Admission Date Mar 21, 2017 at 19:26 Medical Diagnosis: left sided weakness Onset Date: Mar 21, 2017 Therapy Diagnosis Therapy Diagnosis: decreased self care skills Height/Weight Height (Feet): 5 Height (Inches): 3.00 Weight (Pounds): 249 Weight (Ounces): 0.4 Precautions Precautions/Isolations: Fall Prevention, Standard Precautions Safety Interventions: None Referral Physician: Doug Medical History Pertinent Medical History: CVA, HTN, Hypothroidism Additional Medical History learning disability, lumbar and cervical spine surgery, kidney cancer, CHF, sleep apnea, depression, hyperlipidemia Reviewed History: Yes Social History Home: Multilevel (can stay on main level. Sewing room is upstairs) Current Living Status: Spouse Entry Into Home: Stairs Without Railing Steps Into Home: 2 ADL-Prior Level of Function ADL PLOF Comments Pt reports being independent with mobility and ADLs. DME/Equipment: Grab Bars, Tub/Shower Drive Self: Yes OT Current Status Subjective Pt sitting in chair, agrees to therapy. Pt reports 3/10 headache. Mental Status/Objective Patient Orientation: Person, Place, Situation Current Glasses/Contacts: Yes Hearing Aids: No Dentures/Partials: Yes Hand Dominance: Right Upper Extremity ROM Right UE grossly functional Left UE: slow movements. Shoulder to ~90degress. Remainder grossly functional Upper Extremity Coordination Decreased left UE. right WFL Upper Extremity Strength Right UE WFL Left UE grossly 3+/5 Pt has decreased peripheral vision ADL-Treatment ADL-Current Pt sit to stand with CGA. Gait to restroom with FWW. Transfer to walk in shower with CGA and cues for safety using grab bars. Pt doffed lower body clothing with CGA. Doff shirt with SBA. Pt completed bathing tasks with min assist for lower body bathing. Don bra with minimal assistance to fasten. SBA to don pullover shirt. Pt donned underwear and pants with CGA for standing balance during pant hike. Pt able to don socks with SBA and increased time for left sock. Pt demonstrates ability to perform toilet transfer with CGA using grab bar for safety. Grooming tasks completed standing at sink. Pt brushed teeth and combed hair with SBA. Functional [place] Measure 0=Not Assessed/NA 4=Minimal Assistance 1=Total Assistance 5=Supervision or Setup 2=Maximal Assistance 6=Modified [place] 3=Moderate Assistance 7=Complete IndependenceIRFPAI Quality Coding Scale 6 Independent with activity with or without an assistive device 5 Patient requires set up or clean up by helper. Patient completes activity by themselves 4 Supervision or touching assist (CGA). [place] provide cues , steadying assist 3 The helper provides less than half the effort to complete the activity 2 The helper provides more than half the effort to complete the activity 1 Dependent. The helper does all the effort to complete an activity 7 Patient refused to complete or attempt activity 9 The patient did not perform the activity before the current illness or injury 88 Not attempted due to Medical conditions or safety concerns Grooming (FIM): 5 Oral Hygiene (QC): 4 Bathing (FIM): 4 Shower/Bathe Self (QC): 3 Upper Body Dressing (FIM): 4 Upper Body Dressing (QC): 3 Lower Body Dressing (FIM): 4 (CGA) Lower Body Dressing (QC): 4 On/Off Footwear (QC): 4 Toilet/Commode Transfer (FIM): 4 (CGA) Toilet Transfer (QC): 4 (CGA) Shower Transfer (FIM): 4 (CGA) Other Treatments Gait to therapy gym with FWW, slow pace. Pt completed bilateral UE exercises to promote increased strength needed for ADLs and transfers. Pt performed shoulder flexion, forward press, and biceps curls x10 reps with dowel andres. Decreased speed. Rest breaks between exercises. Pt completed tabletop peg activity with left hand to increase coordination/manipulation skills. Pt able to place and remove pegs from pegboard with increased time. Pt returned to room, sitting in chair with needs met after session. Education OT Patient Education: Rehab process Teaching Recipient: Patient Teaching Methods: Discussion Response to Teaching: Verbalize Understanding OT Short Term Goals Short Term Goals Time Frame: Mar 29, 2017 Upper Body Dressing(FIM): 5 Lower Body Dressing(FIM): 5 Toilet/Commode Transfer(FIM): 5 Additional Short Term Goals: 2-Verbalize Understanding, 3-ImproveStrength/Camille 1=Demonstrate adherence to instructed precautions during ADL tasks. 2=Patient will verbalize/demonstrate understanding of assistive devices/ modifications for ADL. 3=Patient will improve strength/tolerance for activity to enable patient to perform ADL's. OT Senior Care Goals Senior Care Goals Time Frame: Apr 12, 2017 Eating (FIM): 6 Eating (QC): 6 Groomin Oral Hygiene (QC): 6 Bathing(FIM): 5 Shower/Bathe Self (QC): 5 Upper Body Dressing(FIM): 6 Upper Body Dressing (QC): 6 Lower Body Dressing(FIM): 6 Lower Body Dressing (QC): 6 On/Off Footwear (QC): 6 Toileting(FIM): 6 Toileting Hygiene (QC): 6 Toilet/Commode Transfer(FIM): 6 Toilet/Commode Transfer (QC): 6 Shower Transfer(FIM): 6 Additional Goals: 2-Verbalize Understanding, 3-ImproveStrength/Camille 1=Demonstrate adherence to instructed precautions during ADL tasks. 2=Patient will verbalize/demonstrate understanding of assistive devices/ modifications for ADL. 3=Patient will improve strength/tolerance for activity to enable patient to perform ADL's. Goals established to promote increased functional independence and allow safe discharge home. OT Education/Plan Problem List/Assessment Assessment: Decreased Activ Tolerance, Decreased UE Strength, Dependent Transfers, Impaired Coordination, Impaired Self-Care Skills Pt demonstrates decreased left side strength, decreased ADL functioning, and mobility. Pt to benefit from skilled OT intervention for ADL training, transfers , strengthening, and home safety education to maximize level of function and allow safe discharge home. Discharge Recommendations Plan/Recommendations: Continue POC Treatment Plan/Plan of Care Treatment,Training & Education: Yes Patient would benefit from OT for education, treatment and training to promote independence in ADL's, mobility, safety and/or upper extremity function for ADL' s. Plan of Care: ADL Retraining, Functional Mobility, Group Exercise/Act as Ind, UE Funct Exercise/Act Treatment Duration: Apr 12, 2017 Frequency: At least 5 of 7 days/Wk (IRF) Estimated Hrs Per Day: 1.5 hours per day Agreement: Yes Rehab Potential: Fair Time/GCodes Start Time: 09:25 Stop Time: 11:55 Total Time Billed (hr/min): 90 Billed Treatment Time 1 visit, EVM(15minutes), ADLx3(50minutes), EXx2(25minutes) PETER ZACARIAS OT Mar 22, 2017 11:51
--- NOTE | 2017-03-22 13:13 | Physical Therapy Daily Note ---
PT Daily Note-Current Subjective Patient is very agreeable to participate with PT. No c/o at this time. Pain Numeric Pain Scale: 0-No Pain Location: No Pain Reported Mental Status Patient Orientation: Normal For Age Transfers Functional [place] Measure 0=Not Assessed/NA 4=Minimal Assistance 1=Total Assistance 5=Supervision or Setup 2=Maximal Assistance 6=Modified [place] 3=Moderate Assistance 7=Complete IndependenceIRFPAI Quality Coding Scale 6 Independent with activity with or without an assistive device 5 Patient requires set up or clean up by helper. Patient completes activity by themselves 4 Supervision or touching assist (CGA). [place] provide cues , steadying assist 3 The helper provides less than half the effort to complete the activity 2 The helper provides more than half the effort to complete the activity 1 Dependent. The helper does all the effort to complete an activity 7 Patient refused to complete or attempt activity 9 The patient did not perform the activity before the current illness or injury 88 Not attempted due to Medical conditions or safety concerns Transfers (B, C, W/C) (FIM): 6 Scootin Rollin Roll Left to Right (QC): 6 Supine to/from Sit: 6 Sit to/from Stand: 6 Sit to Lying (QC): 6 Sit to Stand (QC): 6 Car Transfer (QC): 6 Weight Bearing Right Lower Extremity: Right Full Weight Bearing Left Lower Extremity: Left Full Weight Bearing Gait Training Does the Patient Walk?: Yes Gait (FIM): 5 Distance (FIM): 3=150 ft Distance: 150' x 3 Walk 10 feet (QC): 5 Walk 50 ft with 2 Turns(QC): 5 Walk 150 ft (QC): 5 Gait Level of Assist: 5 Gait Assistive Device: FWW slow, steady, functional gait sequence Exercises Seated Therapy Exercises: Ankle pumps, Long arc quads, Hip flexion Seated Reps: 25 (3 sets) NuStep Minutes: 15 NuStep Workload: 5 (to improve reciprocal pattern with gait sequence and to improve functional strength) Assessment Patient is highly motivated and compliant with program. PT to increase activity as tolerated by patient. Patient states she desires to return to home at this end of the week. PT Short Term Goals Short Term Goals Time Frame: Mar 29, 2017 Gait (FIM): 5 Gait Distance Comment: 200' Gait Level of Assist: 5 Gait Assistive Device: FWW PT Smoke Inspector Goals Smoke Inspector Goals PT [facility] Goals Time Frame: Apr 12, 2017 Transfers (B,C,W/C) (FIM): 6 Sit to Lying (QC): 6 Lying-Sitting on Side/Bed(QC): 6 Sit to Stand (QC): 6 Rollin Roll Left to Right (QC): 6 Chair/Toy-ny-Sbqqv Xfer(QC): 6 Car Transfer (QC): 6 Gait (FIM): 6 Distance: 300' Walk 10 feet (QC): 6 Walk 10ft-Uneven Surface(QC): 6 Walk 50ft with 2 Turns (QC): 6 Walk 150 ft (QC): 6 Gait Level of Assist: 6 Gait Assistive Device: FWW Stairs (FIM): 5 # of Steps: 12 1 Step (curb) (QC): 4 4 Steps (QC): 4 12 Steps (QC): 4 Stairs Level Of Assist: 5 Picking up an Object (QC): 4 PT Plan Treatment/Plan Treatment Plan: Continue Plan of Care Treatment Plan: Bed Mobility, Education, Functional Activity [place], Functional Strength, Group Therapy, Gait, Safety, Therapeutic Exercise, Transfers Treatment Duration: Apr 12, 2017 Frequency: At least 5 of 7 days/Wk (IRF) Estimated Hrs Per Day: 1.5 hours per day Patient and/or Family Agrees t: Yes Time/GCodes Time In: 1115 Time Out: 1200 Total Billed Treatment Time: 45 Total Billed Treatment 1 visit EX x 2 35 min GT 10 min LUIS MANUEL BANKS PT Mar 22, 2017 13:13
--- NOTE | 2017-03-22 13:50 | ST Cognitive Linguistic Eval ---
Speech Evaluation-General Medical Diagnosis left sided weakness Onset Date: Mar 21, 2017 Therapy Diagnosis Therapy Diagnosis: Mild Dysarthria Precautions Precautions/Isolations: Fall Prevention, Standard Precautions Referral Referring Physician: Dr. Corey Camacho Reason for Referral: Evaluation/Treatment Cognitive, Speech, Language Evaluation Medical History Pertinent Medical History: CVA, HTN, Hypothroidism Reviewed History: Yes Social History Current Living Status: Spouse Speech PLF-Current Status Prior Level of Function The patient stated she did not experience any speech, language, or cognitive difficulties prior to the CVA. Subjective The patient was seated upright in recliner upon entrance. The patient greeted the clinician and was agreeable to participation in the cognitive, speech, and language evaluation. Language Eval: Auditory Comprehends Simple Yes/No Ques: Functional Indent/Objects Multiple [place]: Functional Ident/Pics in Multiple [place]: Functional Follows 1-Step Commands: Functional Follows Complex Directions: Functional Follows General Conversations: Functional Language Eval: Verbal Language Completes Spontaneous Greeting: Functional Produces Auto, Serial Info: Functional Imitates Simple Words/Phrases: Functional Word Finding: Functional Requests Basic Needs: Functional States Basic Personal Info: Functional Expresses Complex Ideas: Functional Language Evaluation: Reading Comprehends Single Nouns: Functional Follows Simple Written Direct: Functional Cognitive Patient Orientation The patient is independently oriented to month, year, day of week, date, and location. Objective Cognitive Domain Attention: WNL Memory: Mild Problem Solving: Mild Objective Oral Motor/Speech Production No facial asymmetry at rest. No labial droop or weakness upon retraction or protrusion. Lingual protrusion at midline. Lingual strength and range of motion within normal limits. No fasciculation present. The patient presents with an inconsistent, irregular rate of speech and the presence of intermittent (but not consistent) consonant prolongations. Articulation remains precise, however, slowed. The patient produces inflection upon the second syllable, consistently. The patient presents with mild dysarthria, however, not consistent with a specific type. The patient remains 100% intelligible in known and unknown contexts. Impression Mild Dysarthria Mild Cognitive Impairment Communication/Social Cognition Comprehension: 5 Expression: 5 Social Interaction: 5 Problem Solvin Memory: 5 Speech Patient Assess Expression of Ideas/Wants: Expression (4) Understanding [place] Content: Understands (4) Brief Interview-Mental Status: Yes Repetition of Three Words: Three (3) Temporal Orientation: Year: Correct (3) Temporal Orientation: Month: Accurate within 5 days(2) Temporal Orientation: Day: Correct (1) Recall : Wear to say "Sock": Yes,after cueing (1) Recall : Color: No, could not recall (0) Recall : Bed: No, could not recall (0) Speech Short Term Goals Short Term Goals Short Term Goals 1. The patient will display 80% accuracy with oral motor exercises with mild clinician cueing. 2. The patient will recall and demonstrate functional memory strategies with 80 % accuracy and mild clinician cueing. Time Frame-STG: One Week Speech Care Home Goals Fuel System Maintenance Worker Goals 1. The patient will demonstrate improved cognitive linguistic skills for increased function and safety with ADL's. Time Frame: Ten Days Comprehension: 5 Expression: 5 Social Interaction: 6 Problem Solvin Memory: 5 Speech-Plan Treatment Plan Speech Therapy Treatment Plan: Continue Plan of Care Continue skilled speech pathology to target improved verbal communication. Treatment Duration: Apr 02, 2017 Frequency: Modified Program (IRF) Estimated Hrs Per Day: .5 hour per day Rehab Potential: Fair Safety Risks/Education Teaching Recipient: Patient Teaching Methods: Discussion Response to Teaching: Verbalize Understanding Education Topics Provided: Results, Recommendations, Plan of Care Time Speech Therapy Time In: 13:00 Speech Therapy Time Out: 13:30 Total Billed Time: 30 Billed Treatment Time 1, SHERRY CASTILLO Mar 22, 2017 13:50
--- NOTE | 2017-03-22 14:13 | Occupational Ther Daily Note ---
OT Current Status-Daily Note Subjective Pt alert, sitting in recliner. Pt agreed to therapy. No c/o pain. Mental Status/Objective Patient Orientation: Person, Place, Time, Situation Functional [place] Measure 0=Not Assessed/NA 4=Minimal Assistance 1=Total Assistance 5=Supervision or Setup 2=Maximal Assistance 6=Modified [place] 3=Moderate Assistance 7=Complete [place] ADL-Treatment Functional [place] Measure 0=Not Assessed/NA 4=Minimal Assistance 1=Total Assistance 5=Supervision or Setup 2=Maximal Assistance 6=Modified [place] 3=Moderate Assistance 7=Complete IndependenceIRFPAI Quality Coding Scale 6 Independent with activity with or without an assistive device 5 Patient requires set up or clean up by helper. Patient completes activity by themselves 4 Supervision or touching assist (CGA). [place] provide cues , steadying assist 3 The helper provides less than half the effort to complete the activity 2 The helper provides more than half the effort to complete the activity 1 Dependent. The helper does all the effort to complete an activity 7 Patient refused to complete or attempt activity 9 The patient did not perform the activity before the current illness or injury 88 Not attempted due to Medical conditions or safety concerns Other Treatment Pt able to complete sit to stand and ambulation to therapy gym with SBA using FWW. Pt has decreased pace and takes increased time for ADLs and functional tasks. Using FWW, pt able to ambulate and transfer to chair with supervision. Arm bike completed for 15 min at 15 richards resistance to increase strength and activity tolerance for daily functional tasks. Pt cued to increase speed when completing arm bike since with decreased pace clock will not continue. After therapy, pt left in care of PT. All needs met. OT Short Term Goals Short Term Goals Time Frame: Mar 29, 2017 Upper Body Dressing(FIM): 5 Lower Body Dressing(FIM): 5 Toilet/Commode Transfer(FIM): 5 Additional Short Term Goals: 2-Verbalize Understanding, 3-ImproveStrength/Camille 1=Demonstrate adherence to instructed precautions during ADL tasks. 2=Patient will verbalize/demonstrate understanding of assistive devices/ modifications for ADL. 3=Patient will improve strength/tolerance for activity to enable patient to perform ADL's. OT Chcf Goals Chcf Goals Time Frame: Apr 12, 2017 Eating (FIM): 6 Eating (QC): 6 Groomin Oral Hygiene (QC): 6 Bathing(FIM): 5 Shower/Bathe Self (QC): 5 Upper Body Dressing(FIM): 6 Upper Body Dressing (QC): 6 Lower Body Dressing(FIM): 6 Lower Body Dressing (QC): 6 On/Off Footwear (QC): 6 Toileting(FIM): 6 Toileting Hygiene (QC): 6 Toilet/Commode Transfer(FIM): 6 Toilet/Commode Transfer (QC): 6 Shower Transfer(FIM): 6 Comprehension(FIM): 5 Expression (FIM): 5 Social Interaction(FIM): 6 Problem Solving(FIM): 6 Memory(FIM): 5 Additional Goals: 2-Verbalize Understanding, 3-ImproveStrength/Camille 1=Demonstrate adherence to instructed precautions during ADL tasks. 2=Patient will verbalize/demonstrate understanding of assistive devices/ modifications for ADL. 3=Patient will improve strength/tolerance for activity to enable patient to perform ADL's. OT Education/Plan Problem List/Assessment Pt demonstrates decreased left side strength, decreased ADL functioning, and mobility. Pt to benefit from skilled OT intervention for ADL training, transfers , strengthening, and home safety education to maximize level of function and allow safe discharge home. Discharge Recommendations Plan/Recommendations: Continue POC Treatment Plan/Plan of Care Patient would benefit from OT for education, treatment and training to promote independence in ADL's, mobility, safety and/or upper extremity function for ADL' s. Plan of Care: ADL Retraining, Functional Mobility, Group Exercise/Act as Ind, UE Funct Exercise/Act Treatment Duration: Apr 12, 2017 Frequency: At least 5 of 7 days/Wk (IRF) Estimated Hrs Per Day: 1.5 hours per day Agreement: Yes Rehab Potential: Fair Time/GCodes Start Time: 13:30 Stop Time: 14:00 Total Time Billed (hr/min): 30 Billed Treatment Time 1 visit-FA 1 (15 min) EX 1 (15 min) MARCELA JARQUIN Mar 22, 2017 14:13
--- NOTE | 2017-03-22 14:29 | Physical Therapy Daily Note ---
PT Daily Note-Current Subjective Patient in therapy gym pre tx, just got through with OT. Patient has no complaints of pain other than a slight headache. Appearance Patient in recliner post tx with nurse call, phone, tray, all needs met. Mental Status Patient Orientation: Person, Place, Situation (5) Transfers Functional [place] Measure 0=Not Assessed/NA 4=Minimal Assistance 1=Total Assistance 5=Supervision or Setup 2=Maximal Assistance 6=Modified [place] 3=Moderate Assistance 7=Complete IndependenceIRFPAI Quality Coding Scale 6 Independent with activity with or without an assistive device 5 Patient requires set up or clean up by helper. Patient completes activity by themselves 4 Supervision or touching assist (CGA). [place] provide cues , steadying assist 3 The helper provides less than half the effort to complete the activity 2 The helper provides more than half the effort to complete the activity 1 Dependent. The helper does all the effort to complete an activity 7 Patient refused to complete or attempt activity 9 The patient did not perform the activity before the current illness or injury 88 Not attempted due to Medical conditions or safety concerns Transfers (B, C, W/C) (FIM): 5 Sit to/from Stand: 5 SBA, no LOB Weight Bearing Right Lower Extremity: Right Full Weight Bearing Left Lower Extremity: Left Full Weight Bearing Gait Training Gait (FIM): 5 Distance: 250'x3 Gait Level of Assist: 5 Gait Persons Needed: 1 Gait Assistive Device: FWW slow ambulation, rest breaks between walking, no LOB or unsteadiness Treatments transfers, ambulation Assessment Current Status: Good Progress improved ambulation and endurance PT Short Term Goals Short Term Goals Time Frame: Mar 29, 2017 Gait (FIM): 5 Gait Distance Comment: 200' Gait Level of Assist: 5 Gait Assistive Device: FWW PT Tech Ed/Woodshop Teacher Goals Tech Ed/Woodshop Teacher Goals PT Group Home Goals Time Frame: Apr 12, 2017 Transfers (B,C,W/C) (FIM): 6 Sit to Lying (QC): 6 Lying-Sitting on Side/Bed(QC): 6 Sit to Stand (QC): 6 Rollin Roll Left to Right (QC): 6 Chair/Sic-ur-Hkbav Xfer(QC): 6 Car Transfer (QC): 6 Gait (FIM): 6 Distance: 300' Walk 10 feet (QC): 6 Walk 10ft-Uneven Surface(QC): 6 Walk 50ft with 2 Turns (QC): 6 Walk 150 ft (QC): 6 Gait Level of Assist: 6 Gait Assistive Device: FWW Stairs (FIM): 5 # of Steps: 12 1 Step (curb) (QC): 4 4 Steps (QC): 4 12 Steps (QC): 4 Stairs Level Of Assist: 5 Picking up an Object (QC): 4 PT Plan Problem List Problem List: Activity Tolerance, Functional Strength, Safety, Balance, Gait, Transfer Treatment/Plan Treatment Plan: Continue Plan of Care Treatment Plan: Bed Mobility, Education, Functional Activity [place], Functional Strength, Group Therapy, Gait, Safety, Therapeutic Exercise, Transfers Treatment Duration: Apr 12, 2017 Frequency: At least 5 of 7 days/Wk (IRF) Estimated Hrs Per Day: 1.5 hours per day Patient and/or Family Agrees t: Yes Safety Risks/Education Patient Education: Gait Training, Transfer Techniques, Correct Positioning, Safety Issues Teaching Recipient: Patient Teaching Methods: Demonstration, Discussion Response to Teaching: Reinforcement Needed Time/GCodes Time In: 1400 Time Out: 1430 Total Billed Treatment Time: 30 Total Billed Treatment visit GT 30' AZAEL LOPEZ PT Mar 22, 2017 14:29
--- NOTE | 2017-03-22 17:19 | PM & R (SOAP) Progress Note ---
Subjective Time Seen by Provider: 12:15 Subjective/Events-last exam Patient was seen in her room over the noonhour.Adjusting well to UNIT Therapy notes reviewed Patient min assist for transfers Review of Systems HEENT: Visual Changes, Other (slurred speech) Neurological: Weakness Objective Exam Last Set of Vital Signs Vital Signs Date Time Temp Pulse Resp B/P (MAP) Pulse Ox O2 Delivery O2 Flow Rate FiO2 03/22/17 09:15 Room Air 03/22/17 06:04 98.4 75 18 111/72 (85) 97 Capillary Refill : I&O Intake and Output 03/22/17 00:00 Daily Weight Change No General: Alert, Oriented X3, Cooperative, No Acute Distress HEENT: Atraumatic, PERRLA, EOMI, Mucous Memb Moist/[place], Other (left labial droop dysarthria mild Decreased peripheral vision) Neck: Supple, No JVD Lungs: Clear to Auscultation Heart: Regular Rate Abdomen: Normal Bowel Sounds, Soft Extremities: No Edema Neuro: Other (Left HP upper weaker then lower limb) Psych/Mental Status: Other (mild slowed cognition) Assessment/Plan Assessment Left HP and dysarthria and cognitive impairment felt to be due to conversion disorder as imaging studies done at [facility] negative Learning disability Prior spine surgery [facility] cervical and Lumbar HTN controlled with meds Hypothyroidism on replacement Plan Continue PT/OT/ST Team Conference tomorrow 03-23-[address] sue note. REBEKA ANDERSON MD Mar 22, 2017 17:19
[2017-03-22] MEDS: ACETAMINOPHEN 325 MG TABLET/CAPLET (TYLENOL) PO PRN (17:34)
[2017-03-22 17:40] VITALS: BP 125/86
[2017-03-22] MEDS: ATORVASTATIN 40 MG (LIPITOR) TABLET PO SCH (20:26)
[2017-03-23 06:42] LABS: MEAN PLATELET VOLUME 9.8 FL (7.4-10.4); RED BLOOD COUNT 4.02 10^6/uL (4.35-5.85); RED CELL DISTRIBUTION WIDTH 13.3 % (10.0-14.5); WHITE BLOOD COUNT 4.8 10^3/uL (4.3-11.0)
[2017-03-23 06:48] VITALS: BP 138/87
[2017-03-23] MEDS: LEVOTHYROXINE 88 MCG (LEVOTHORID) TAB PO SCH (06:48)
[2017-03-23 07:09] LABS: ALBUMIN 3.5 GM/DL (3.2-4.5); BILIRUBIN,TOTAL 0.2 MG/DL (0.1-1.0); CALCIUM 8.4 MG/DL (8.5-10.1); CREATININE SERUM 1.01 MG/DL (0.60-1.30); POTASSIUM 4.2 MMOL/L (3.6-5.0); TOTAL PROTEIN 6.3 GM/DL (6.4-8.2)
[2017-03-23 07:30] LABS: THYROID STIMULATING HORMONE 1.42 UIU/ML (0.35-4.94)
[2017-03-23] MEDS: DOCUSATE SODIUM 100 MG (COLACE) CAP PO SCH ×2 (08:00→20:26)
[2017-03-23] MEDS: LORATADINE (CLARITIN) 10 MG TAB PO SCH (08:00)
[2017-03-23] MEDS: toPIRamate 100 MG (TOPAMAX) TAB PO SCH ×2 (08:00→20:25)
[2017-03-23] MEDS: amLODIPine 5 MG (NORVASC) TAB PO SCH (08:00)
[2017-03-23] MEDS: ASPIRIN E.C. 325 MG (ECOTRIN) TABLET PO SCH (08:00)
[2017-03-23] MEDS: OXcarbazepine (TRILEPTAL) 300 MG TAB PO SCH ×2 (08:00→20:26)
[2017-03-23] MEDS: TRIAMCINOLONE 0.1% CR (KENALOG) 15 GM TUBE TOP SCH ×2 (08:02→19:45)
--- NOTE | 2017-03-23 08:15 | Progress Note (SOAP) ---
Subjective Time Seen by Provider: 08:10 Subjective/Events-last exam patient speaking slowly. Patient improving. Patient getting along by walker learning disability. Hypertension. Lumbar and cervical spine surgery. ischemic CVA age 29 Sleep apnea Hypothyroid Objective Exam Vital Signs Date Time Temp Pulse Resp B/P (MAP) Pulse Ox O2 Delivery O2 Flow Rate FiO2 03/23/17 06:48 98.8 67 18 138/87 (104) 97 03/22/17 21:00 Room Air 03/22/17 17:40 97.8 57 18 125/86 (99) 96 Room Air 03/22/17 09:15 Room Air I & O 03/23/17 07:00 Intake Total 1250 ml Output Total 875 ml Balance 375 ml Capillary Refill : General Appearance: No Apparent Distress, WD/WN HEENT: Normal ENT Inspection, Other (speaks slowly) Neck: Full Range of Motion, Non Tender, Supple Respiratory: Chest Non Tender, No Accessory Muscle Use, No Respiratory Distress Cardiovascular: Regular Rate, Rhythm, No Murmur Gastrointestinal: non tender, soft Results Lab Laboratory Tests 03/23/17 06:19: White Blood Count 4.8, Red Blood Count 4.02L, Hemoglobin 12.2, Hematocrit 37, Mean Corpuscular Volume 91, Mean Corpuscular Hemoglobin 30, Mean Corpuscular Hemoglobin Concent 33, Red Cell Distribution Width 13.3, Platelet Count 169, Mean Platelet Volume 9.8, Sodium Level 144, Potassium Level 4.2, Chloride Level 116H, Carbon Dioxide Level 21, Anion Gap 7, Blood Urea Nitrogen 19H, Creatinine 1.01, Estimat Glomerular Filtration Rate 57, BUN/Creatinine Ratio 19, Glucose Level 89, Calcium Level 8.4L, Total Bilirubin 0.2, Aspartate Amino Transf (AST/ SGOT) 24, Alanine Aminotransferase (ALT/SGPT) 33, Alkaline Phosphatase 80, Total Protein 6.3L, Albumin 3.5, Thyroid Stimulating Hormone (TSH) 1.42 Assessment/Plan Assessment/Plan Assess & Plan/Chief Complaint ecent CVA. Past history of CVA. history of hypertension. Hyperlipidemia. Conversion reaction . . CVA. Hypertension history . Hyperlipidemia. Sleep apnea. Hypothyroid. Patient improving Patient voices no complaints Clinical Quality Measures DVT/VTE Risk/Contraindication: Risk Factor Score Per Nursin RFS Level Per Nursing on Admit: 4+=Very High GELLENDER,NEPTALI A DO Mar 23, 2017 08:15
--- NOTE | 2017-03-23 11:03 | Physical Therapy Daily Note ---
PT Daily Note-Current Subjective Mumbled monotone speech states she wants to be able to walk without the FWW. Agrees to Rx. Pain Numeric Pain Scale: 0-No Pain Transfers Functional [place] Measure 0=Not Assessed/NA 4=Minimal Assistance 1=Total Assistance 5=Supervision or Setup 2=Maximal Assistance 6=Modified [place] 3=Moderate Assistance 7=Complete IndependenceIRFPAI Quality Coding Scale 6 Independent with activity with or without an assistive device 5 Patient requires set up or clean up by helper. Patient completes activity by themselves 4 Supervision or touching assist (CGA). [place] provide cues , steadying assist 3 The helper provides less than half the effort to complete the activity 2 The helper provides more than half the effort to complete the activity 1 Dependent. The helper does all the effort to complete an activity 7 Patient refused to complete or attempt activity 9 The patient did not perform the activity before the current illness or injury 88 Not attempted due to Medical conditions or safety concerns Transfers (B, C, W/C) (FIM): 7 Scootin Rollin Supine to/from Sit: 7 Sit to/from Stand: 7 Weight Bearing Right Lower Extremity: Right Full Weight Bearing Left Lower Extremity: Left Full Weight Bearing Gait Training Does the Patient Walk?: Yes Gait (FIM): 5 Distance (FIM): 3=150 ft (175x2) Gait Level of Assist: 5 Gait Persons Needed: 1 slow, equal step length, looks at floor Stair Training Stair Training: Handrails/: 2 handrails Stairs (FIM): 2 #of Steps: 4 Stairs: Pattern: Step to Level of Assist: 4 instruction and cues for sequence with pt. hesitating to bring Left foot down at decent Exercises Supine Ex: Bridging, Ankle pumps, Quad Set, Rolling, Glut sets, Heel Slides, Short Arc Quads, Scooting, Straight leg raise, Hip abd/add Supine Reps: 15 NuStep Minutes: 10 NuStep Workload: 3 Treatments toileted indep for all, washed hands indep for all Assessment Current Status: Good Progress PT Short Term Goals Short Term Goals Time Frame: Mar 29, 2017 Gait (FIM): 5 Gait Distance Comment: 200' Gait Level of Assist: 5 Gait Assistive Device: FWW PT Sound Engineering Technician Goals Sound Engineering Technician Goals PT Sound Engineering Technician Goals Time Frame: Apr 12, 2017 Transfers (B,C,W/C) (FIM): 6 Sit to Lying (QC): 6 Lying-Sitting on Side/Bed(QC): 6 Sit to Stand (QC): 6 Rollin Roll Left to Right (QC): 6 Chair/Unk-zs-Bcacz Xfer(QC): 6 Car Transfer (QC): 6 Gait (FIM): 6 Distance: 300' Walk 10 feet (QC): 6 Walk 10ft-Uneven Surface(QC): 6 Walk 50ft with 2 Turns (QC): 6 Walk 150 ft (QC): 6 Gait Level of Assist: 6 Gait Assistive Device: FWW Stairs (FIM): 5 # of Steps: 12 1 Step (curb) (QC): 4 4 Steps (QC): 4 12 Steps (QC): 4 Stairs Level Of Assist: 5 Picking up an Object (QC): 4 PT Plan Treatment/Plan Treatment Plan: Continue Plan of Care Treatment Plan: Bed Mobility, Education, Functional Activity Cam[place], Functional Strength, Group Therapy, Gait, Safety, Therapeutic Exercise, Transfers Treatment Duration: Apr 12, 2017 Frequency: At least 5 of 7 days/Wk (IRF) Estimated Hrs Per Day: 1.5 hours per day Patient and/or Family Agrees t: Yes Safety Risks/Education Patient Education: Gait Training, Transfer Techniques, Steps Teaching Recipient: Patient Teaching Methods: Demonstration, Discussion Response to Teaching: Verbalize Understanding, Return Demonstration, Reinforcement Needed Time/GCodes Time In: 1000 Time Out: 1100 Total Billed Treatment Time: 60 Total Billed Treatment 1,EX30,FA15,GT15 G Codes Necessary: FATMATA Yun ASSISTANT PROFESSOR OF MARINE BIOLOGY Mar 23, 2017 11:03
--- NOTE | 2017-03-23 11:12 | Occupational Ther Daily Note ---
OT Current Status-Daily Note Subjective Pt sitting in chair, agrees to treatment. Pt has no c/o pain. Pt states she did not sleep well last night. Mental Status/Objective Functional [place] Measure 0=Not Assessed/NA 4=Minimal Assistance 1=Total Assistance 5=Supervision or Setup 2=Maximal Assistance 6=Modified [place] 3=Moderate Assistance 7=Complete [place] ADL-Treatment Pt has already dressed and completed grooming tasks with nursing this morning prior to therapy. Pt states she has a tub/shower combo at home and her sister is getting her a shower chair. Pt ambulated to shower room with FWW and slow pace. Education provided regarding tub transfer using shower chair. Pt practiced transfers x2 with SBA and skilled cues for safety. Functional [place] Measure 0=Not Assessed/NA 4=Minimal Assistance 1=Total Assistance 5=Supervision or Setup 2=Maximal Assistance 6=Modified [place] 3=Moderate Assistance 7=Complete IndependenceIRFPAI Quality Coding Scale 6 Independent with activity with or without an assistive device 5 Patient requires set up or clean up by helper. Patient completes activity by themselves 4 Supervision or touching assist (CGA). [place] provide cues , steadying assist 3 The helper provides less than half the effort to complete the activity 2 The helper provides more than half the effort to complete the activity 1 Dependent. The helper does all the effort to complete an activity 7 Patient refused to complete or attempt activity 9 The patient did not perform the activity before the current illness or injury 88 Not attempted due to Medical conditions or safety concerns Other Treatment Gait to therapy gym with slow pace. Arm bike x15 minutes to increase overall strength and activity tolerance needed for functional tasks. Pt completed task with minimal resistance and slow pace. No rest breaks required. Pt performed bilateral UE exercises to increase strength for ADLs and transfers. Pt performed shoulder flexion, abduction, biceps curls, and triceps extension exercises x10 reps with minimal resistance (yellow) theraband. Rest breaks taken between exercises. Occasional cues required for proper exercise technique. Pt completed graded clothespin activity with left hand to increase rough rice grader/pinch strength. Pt requires increased time for activity, but no assist needed. Pt completed grooved pegboard activity with left hand to increase fine motor coordination/manipulation skills. Pt has difficulty with task secondary to decreased coordination, requires increased time and effort to complete. Pt requires rest break during activity secondary to fatigue. Arm arc activity completed with bilateral UE to increase ROM and activity tolerance. Pt completed task with moderate extension. Pt fatigues easily with activity, requires rest break. Fine motor task with nuts and bolts to increase coordination skills. Pt completed activity with increased time. Pt returned to room, sitting in chair with needs met after session. OT Short Term Goals Short Term Goals Time Frame: Mar 29, 2017 Upper Body Dressing(FIM): 5 Lower Body Dressing(FIM): 5 Toilet/Commode Transfer(FIM): 5 Additional Short Term Goals: 2-Verbalize Understanding, 3-ImproveStrength/[place] 1=Demonstrate adherence to instructed precautions during ADL tasks. 2=Patient will verbalize/demonstrate understanding of assistive devices/ modifications for ADL. 3=Patient will improve strength/tolerance for activity to enable patient to perform ADL's. OT Longterm Goals Longterm Goals Time Frame: Apr 12, 2017 Eating (FIM): 6 Eating (QC): 6 Groomin Oral Hygiene (QC): 6 Bathing(FIM): 5 Shower/Bathe Self (QC): 5 Upper Body Dressing(FIM): 6 Upper Body Dressing (QC): 6 Lower Body Dressing(FIM): 6 Lower Body Dressing (QC): 6 On/Off Footwear (QC): 6 Toileting(FIM): 6 Toileting Hygiene (QC): 6 Toilet/Commode Transfer(FIM): 6 Toilet/Commode Transfer (QC): 6 Shower Transfer(FIM): 6 Comprehension(FIM): 5 Expression (FIM): 5 Social Interaction(FIM): 6 Problem Solving(FIM): 6 Memory(FIM): 5 Additional Goals: 2-Verbalize Understanding, 3-ImproveStrength/[place] 1=Demonstrate adherence to instructed precautions during ADL tasks. 2=Patient will verbalize/demonstrate understanding of assistive devices/ modifications for ADL. 3=Patient will improve strength/tolerance for activity to enable patient to perform ADL's. OT Education/Plan Problem List/Assessment Pt demonstrates decreased left side strength, decreased ADL functioning, and mobility. Pt to benefit from skilled OT intervention for ADL training, transfers , strengthening, and home safety education to maximize level of function and allow safe discharge home. Discharge Recommendations Plan/Recommendations: Continue POC Treatment Plan/Plan of Care Patient would benefit from OT for education, treatment and training to promote independence in ADL's, mobility, safety and/or upper extremity function for ADL' s. Plan of Care: ADL Retraining, Functional Mobility, Group Exercise/Act as Ind, UE Funct Exercise/Act Treatment Duration: Apr 12, 2017 Frequency: At least 5 of 7 days/Wk (IRF) Estimated Hrs Per Day: 1.5 hours per day Agreement: Yes Rehab Potential: Fair Time/GCodes Start Time: 08:00 Stop Time: 09:30 Total Time Billed (hr/min): 90 Billed Treatment Time 1 visit, ADL(15minutes), EXx2(30minutes), FAx3(45minutes) PETER ZACARIAS OT Mar 23, 2017 11:12
--- NOTE | 2017-03-23 13:17 | Speech Therapy Daily Note ---
Speech Daily Progress Note Subjective Date Seen by Provider: Mar 23, 2017 Time Seen by Provider: 09:30 The patient was seated upright in recliner upon entrance. The patient is agreeable to participation in the speech, language, and cognitive treatment session. The patient is tearful intermittently throughout the session which she reports is secondary to frustration and anxiety regarding her speech and language. Objective A standardized cognitive evaluation was provided to the patient in attempts to gain a better understanding of current deficits. Results of the MoCA ([place] Cognitive Assessment) are as follows (to note, due to the patient's reduced rate of completion with all tasks, all MoCA tasks were not completed on this date): - Visuospatial/Executive Functioning: The patient displayed accuracy with trail- making and clock drawing, however, was unable to accurately copy a photograph of a cube. - Naming: The patient was able to name three of three items accurately. - Language: The patient was able to repeat short phrases and single words accurately. - Attention: The patient was able to accurately identify a specific letter and complete serial subtraction with the aid of paper and pencil. - Memory: The patient was unable to complete/recall five single words immediately or following a five minute delay. At this time, the patient displays deficits with memory. To note: The patient continues to display intermittent, inconsistent signs/ symptoms of dysarthria. The patient's characteristics fluctuate throughout sessions. Assessment Assessment Current Status: Poor Progress Treatment Plan Continue Plan of Care Communication Comprehension: 4 Expression: 4 Social Cognition Social Interaction: 4 Problem Solvin Memory: 3 Speech Short Term Goals Short Term Goals Short Term Goals 1. The patient will display 80% accuracy with oral motor exercises with mild clinician cueing. 2. The patient will recall and demonstrate functional memory strategies with 80 % accuracy and mild clinician cueing. Time Frame-STG: One Week Speech Correction Goals Embroidery Designer Goals 1. The patient will demonstrate improved cognitive linguistic skills for increased function and safety with ADL's. Time Frame: Ten Days Comprehension: 5 Expression: 5 Social Interaction: 6 Problem Solvin Memory: 5 Speech-Plan Treatment Plan Speech Therapy Treatment Plan: Continue Plan of Care Continued skilled speech pathology to target improved speech fluency and functional memory strategies. Treatment Duration: Apr 02, 2017 Frequency: Modified Program (IRF) Estimated Hrs Per Day: .5 hour per day Rehab Potential: Fair Safety Risks/Education Teaching Recipient: Patient Teaching Methods: Discussion Response to Teaching: Verbalize Understanding Education Topics Provided: Results of MoCA Time Speech Therapy Time In: 09:30 Speech Therapy Time Out: 10:00 Total Billed Time: 30 Billed Treatment Time 1DAMON ELIZABETH ST Mar 23, 2017 13:17
--- NOTE | 2017-03-23 14:29 | Physical Therapy Daily Note ---
PT Daily Note-Current Subjective Pt. agrees to Rx. Pain Numeric Pain Scale: 0-No Pain Transfers Functional [place] Measure 0=Not Assessed/NA 4=Minimal Assistance 1=Total Assistance 5=Supervision or Setup 2=Maximal Assistance 6=Modified [place] 3=Moderate Assistance 7=Complete IndependenceIRFPAI Quality Coding Scale 6 Independent with activity with or without an assistive device 5 Patient requires set up or clean up by helper. Patient completes activity by themselves 4 Supervision or touching assist (CGA). [place] provide cues , steadying assist 3 The helper provides less than half the effort to complete the activity 2 The helper provides more than half the effort to complete the activity 1 Dependent. The helper does all the effort to complete an activity 7 Patient refused to complete or attempt activity 9 The patient did not perform the activity before the current illness or injury 88 Not attempted due to Medical conditions or safety concerns all TRFs mod I Weight Bearing Right Lower Extremity: Right Full Weight Bearing Left Lower Extremity: Left Full Weight Bearing Gait Training Gait Assistive Device: FWW 200ft x 2, no LOB, slow SBA Exercises Seated Therapy Exercises: Ankle pumps, Sit to stand, Long arc quads, Hip flexion Seated Reps: 20 Standing: Hip Abduction, Hamstring curls, Heel/toe raises, Marching, Mini squats, Sit to Stand Standing Reps: 20 Treatments toileted x 2 during Rx Mod I Assessment Current Status: Good Progress PT Short Term Goals Short Term Goals Time Frame: Mar 29, 2017 Gait (FIM): 5 Gait Distance Comment: 200' Gait Level of Assist: 5 Gait Assistive Device: FWW PT Engineering Coordinator Goals Senior Care Goals PT Engineering Coordinator Goals Time Frame: Apr 12, 2017 Transfers (B,C,W/C) (FIM): 6 Sit to Lying (QC): 6 Lying-Sitting on Side/Bed(QC): 6 Sit to Stand (QC): 6 Rollin Roll Left to Right (QC): 6 Chair/Glh-pl-Hbanl Xfer(QC): 6 Car Transfer (QC): 6 Gait (FIM): 6 Distance: 300' Walk 10 feet (QC): 6 Walk 10ft-Uneven Surface(QC): 6 Walk 50ft with 2 Turns (QC): 6 Walk 150 ft (QC): 6 Gait Level of Assist: 6 Gait Assistive Device: FWW Stairs (FIM): 5 # of Steps: 12 1 Step (curb) (QC): 4 4 Steps (QC): 4 12 Steps (QC): 4 Stairs Level Of Assist: 5 Picking up an Object (QC): 4 PT Plan Treatment/Plan Treatment Plan: Continue Plan of Care Treatment Plan: Bed Mobility, Education, Functional Activity [place], Functional Strength, Group Therapy, Gait, Safety, Therapeutic Exercise, Transfers Treatment Duration: Apr 12, 2017 Frequency: At least 5 of 7 days/Wk (IRF) Estimated Hrs Per Day: 1.5 hours per day Patient and/or Family Agrees t: Yes Safety Risks/Education Patient Education: Gait Training, Transfer Techniques, Issued Written HEP, Correct Positioning, Safety Issues Teaching Recipient: Patient Teaching Methods: Demonstration, Discussion Response to Teaching: Verbalize Understanding, Return Demonstration, Reinforcement Needed Time/GCodes Time In: 1340 Time Out: 1425 Total Billed Treatment Time: 45 Total Billed Treatment 1,GT15m,EX30m G Codes Necessary: FATMATA Yun CLOCK REPAIRER Mar 23, 2017 14:28
--- NOTE | 2017-03-23 14:33 | Occupational Ther Daily Note ---
OT Current Status-Daily Note Subjective Pt alert, sitting in recliner. Pt agreed to therapy. No c/o pain at this time. Mental Status/Objective Patient Orientation: Person, Place, Time, Situation Functional [place] Measure 0=Not Assessed/NA 4=Minimal Assistance 1=Total Assistance 5=Supervision or Setup 2=Maximal Assistance 6=Modified [place] 3=Moderate Assistance 7=Complete [place] ADL-Treatment Functional [place] Measure 0=Not Assessed/NA 4=Minimal Assistance 1=Total Assistance 5=Supervision or Setup 2=Maximal Assistance 6=Modified [place] 3=Moderate Assistance 7=Complete IndependenceIRFPAI Quality Coding Scale 6 Independent with activity with or without an assistive device 5 Patient requires set up or clean up by helper. Patient completes activity by themselves 4 Supervision or touching assist (CGA). [place] provide cues , steadying assist 3 The helper provides less than half the effort to complete the activity 2 The helper provides more than half the effort to complete the activity 1 Dependent. The helper does all the effort to complete an activity 7 Patient refused to complete or attempt activity 9 The patient did not perform the activity before the current illness or injury 88 Not attempted due to Medical conditions or safety concerns Other Treatment Pt completed hand strengthening, fine motor and B UE tasks to increase bilateral UE coordination for bathing and dressing. Pt completed task without difficulty. After therapy, pt in care of PT. All needs met. OT Short Term Goals Short Term Goals Time Frame: Mar 29, 2017 Upper Body Dressing(FIM): 5 Lower Body Dressing(FIM): 5 Toilet/Commode Transfer(FIM): 5 Additional Short Term Goals: 2-Verbalize Understanding, 3-ImproveStrength/[place] 1=Demonstrate adherence to instructed precautions during ADL tasks. 2=Patient will verbalize/demonstrate understanding of assistive devices/ modifications for ADL. 3=Patient will improve strength/tolerance for activity to enable patient to perform ADL's. OT Goodwill Ambassador Goals Goodwill Ambassador Goals Time Frame: Apr 12, 2017 Eating (FIM): 6 Eating (QC): 6 Groomin Oral Hygiene (QC): 6 Bathing(FIM): 5 Shower/Bathe Self (QC): 5 Upper Body Dressing(FIM): 6 Upper Body Dressing (QC): 6 Lower Body Dressing(FIM): 6 Lower Body Dressing (QC): 6 On/Off Footwear (QC): 6 Toileting(FIM): 6 Toileting Hygiene (QC): 6 Toilet/Commode Transfer(FIM): 6 Toilet/Commode Transfer (QC): 6 Shower Transfer(FIM): 6 Comprehension(FIM): 5 Expression (FIM): 5 Social Interaction(FIM): 6 Problem Solving(FIM): 6 Memory(FIM): 5 Additional Goals: 2-Verbalize Understanding, 3-ImproveStrength/[place] 1=Demonstrate adherence to instructed precautions during ADL tasks. 2=Patient will verbalize/demonstrate understanding of assistive devices/ modifications for ADL. 3=Patient will improve strength/tolerance for activity to enable patient to perform ADL's. OT Education/Plan Problem List/Assessment Pt demonstrates decreased left side strength, decreased ADL functioning, and mobility. Pt to benefit from skilled OT intervention for ADL training, transfers , strengthening, and home safety education to maximize level of function and allow safe discharge home. Discharge Recommendations Plan/Recommendations: Continue POC Treatment Plan/Plan of Care Patient would benefit from OT for education, treatment and training to promote independence in ADL's, mobility, safety and/or upper extremity function for ADL' s. Plan of Care: ADL Retraining, Functional Mobility, Group Exercise/Act as Ind, UE Funct Exercise/Act Treatment Duration: Apr 12, 2017 Frequency: At least 5 of 7 days/Wk (IRF) Estimated Hrs Per Day: 1.5 hours per day Agreement: Yes Rehab Potential: Fair Time/GCodes Start Time: 13:00 Stop Time: 13:30 Total Time Billed (hr/min): 30 Billed Treatment Time 1 visit-FA 2 (30 min) MARCELA JARQUIN Mar 23, 2017 14:33
[2017-03-23 17:21] VITALS: BP 143/84
--- NOTE | 2017-03-23 18:45 | Individualized Plan of Care ---
Individualized Plan of Care Rehab Nursing IPOC Order Admission Date Mar 21, 2017 at 19:26 Current Orders Orders Heart Healthy (03/21/17 Dinner) Admission-Acute Rehab Unit (03/21/17 19:37) Track Greaser-Inpt Rehab (03/21/17 19:37) Rehab Nursing Orders-Ipoc (03/21/17 19:37) Physical Therapy Rehab Orders (03/21/17 19:37) Occupational Therapy Rehab Ord (03/21/17 19:37) Speech Therapy Rehab Orders (03/21/17 19:37) Behavorial Health Consult (03/21/17 19:37) Precautions (Aru) (03/21/17 19:37) Weekly Weight (Lbs) WEEK (03/21/17 19:37) Consult Physician (03/21/17 19:43) Alprazolam Tablet (Xanax Tablet) (03/21/17 19:45) Amlodipine Tablet (Norvasc Tablet) (03/22/17 09:00) Aspirin Enteric Coated Tablet (Ecotrin T (03/22/17 09:00) Atorvastatin Tablet (Lipitor) (03/21/17 21:00) Loratadine Tablet (Claritin Tablet) (03/22/17 09:00) Docusate Sodium Capsule (Colace Capsule) (03/21/17 21:00) Levothyroxine Tablet (Synthroid Tablet) (03/22/17 06:30) Senna S Tablet (Senokot S Tablet) (03/21/17 19:45) Topiramate Tablet (Topamax Tablet) (03/21/17 21:00) Triamcinolone 0.1% Cream 15 Gm (Kenalog (03/21/17 21:00) Acetaminophen Tablet/Caplet (Tylenol T (03/21/17 19:45) Oxcarbazepine Tablet (Trileptal Tablet) (03/22/17 09:00) Comprehensive Metabolic Panel (03/23/17 06:00) Cbc No Diff (03/23/17 06:00) Thyroid Stimulating Hormone (03/23/17 06:00) Patient Visit (03/22/17 ) Speech Sound Lang Comp (03/22/17 ) Patient Visit (03/22/17 ) Pt Eval Moderate Complexity (03/22/17 ) Gait Training, Ea 15 Min (03/22/17 ) Functional Activities, Ea 15 (03/22/17 ) Patient Visit (03/22/17 ) Gait Training, Ea 15 Min (03/22/17 ) Patient Visit (03/22/17 ) Exercise Therap, Ea 15 Min (03/22/17 ) Gait Training, Ea 15 Min (03/22/17 ) Patient Visit (03/23/17 ) Treat. Speech/Lang/Voice (03/23/17 ) Patient Visit (03/23/17 ) Exercise Therap, Ea 15 Min (03/23/17 ) Functional Activities, Ea 15 (03/23/17 ) Gait Training, Ea 15 Min (03/23/17 ) Rehab Nursing Orders: Diseage Management, Edu in Press Rel Techn, Hydration Management, Nutrition Management Other Nursing Orders: Monitor for Constipation and urinary retention PT IPOC Problem List: Activity Tolerance, Functional Strength, Safety, Balance, Gait, Transfer Treatment Plan: Continue Plan of Care Bed Mobility, Education, Functional Activity Camille, Functional Strength, Group Therapy, Gait, Safety, Therapeutic Exercise, Transfers Treatment Duration: Apr 12, 2017 Frequency: At least 5 of 7 days/Wk (IRF) Estimated Hrs Per Day: 1.5 hours per day OT IPOC Problems: Decreased Activ Tolerance, Decreased UE Strength, Dependent Transfers , Impaired Coordination, Impaired Self-Care Skills OT Treatment, Training and Edu: Yes OT Problems Pt demonstrates decreased left side strength, decreased ADL functioning, and mobility. Pt to benefit from skilled OT intervention for ADL training, transfers , strengthening, and home safety education to maximize level of function and allow safe discharge home. Plan of Care: ADL Retraining, Functional Mobility, Group Exercise/Act as Ind, UE Funct Exercise/Act Treatment Duration: Apr 12, 2017 Frequency: At least 5 of 7 days/Wk (IRF) Estimated Hrs Per Day: 1.[address] IPOC Speech Therapy Treatment Plan: Continue Plan of Care Treatment Duration: Apr 02, 2017 Frequency: Modified Program (IRF) Estimated Hrs Per Day: .5 hour per day Track Greaser/Case Mgmt Track Greaser/Case Managemen: Discharge Planning, Patient/Family Counseling Physician IPOC Medical Issues being managed closely and that require the 24 hour availability of a physician: HTN mood disorder cough smoking cessation Medical Issues: DVT Prophylaxis, Fluid/Electrolyte/Nutrition Balance, Infection Protection, Other (List) (as per above) Brief Synthesis of Preadmission Screen, Post-Admission Evaluation, and Therapy Evaluations: 56 yo female who developed hemiparais felt to be due to conversion disorder due to negative imaging studies with treatment at OSH who is referred to IRU for ongoing care and therapies. Patients symptoms and functional status fluctuate throughout the day.Patient lives with family and had been Independent prior to this although disabled [facility] consulted Medical Prognosis: Fair Anticipated Length of Stay: 12--17 Rehab Goals Modified Independent for adls and mobility skills Anticipated discharge destinat: Home with family and [facility] REBEKA ANDERSON MD Mar 23, 2017 18:45
[2017-03-23] MEDS: ATORVASTATIN 40 MG (LIPITOR) TABLET PO SCH (20:25)
[2017-03-24 05:57] VITALS: BP 114/76
[2017-03-24] MEDS: LEVOTHYROXINE 88 MCG (LEVOTHORID) TAB PO SCH (06:09)
--- NOTE | 2017-03-24 08:21 | Progress Note (SOAP) ---
Subjective Time Seen by Provider: 08:20 Subjective/Events-last exam patient doing better and feeling better. Patient speaking better. Stroke Objective Exam Vital Signs Date Time Temp Pulse Resp B/P (MAP) Pulse Ox O2 Delivery O2 Flow Rate FiO2 03/24/17 05:57 98.1 74 18 114/76 (89) 98 Room Air 03/23/17 20:30 Room Air 03/23/17 17:21 98.4 59 18 143/84 (103) 100 03/23/17 08:57 Room Air I & O 03/24/17 07:00 Intake Total 1090 ml Output Total 2850 ml Balance -1760 ml Capillary Refill : General Appearance: No Apparent Distress, WD/WN Assessment/Plan Assessment/Plan Assess & Plan/Chief Complaint ecent CVA. Past history of CVA. history of hypertension. Hyperlipidemia. Conversion reaction . . CVA. Hypertension history . Hyperlipidemia. Sleep apnea. Hypothyroid. Patient improving Patient voices no complaints . 03/24/17. cVA. Hypertension. Hyperlipidemia. Patient speaking better Clinical Quality Measures DVT/VTE Risk/Contraindication: Risk Factor Score Per Nursin RFS Level Per Nursing on Admit: 4+=Very High NEPTALI SALOMON DO Mar 24, 2017 08:21
--- NOTE | 2017-03-24 09:06 | PM & R (SOAP) Progress Note ---
Subjective Time Seen by Provider: 08:05 Subjective/Events-last exam Patient was seen in her room this AM Patient Modified Independent for transfers. Objective Exam Last Set of Vital Signs Vital Signs Date Time Temp Pulse Resp B/P (MAP) Pulse Ox O2 Delivery O2 Flow Rate FiO2 03/24/17 05:57 98.1 74 18 114/76 (89) 98 Room Air Capillary Refill : I&O Intake and Output 03/24/17 00:00 Intake Total 1140 ml Output Total 2150 ml Balance -1010 ml Intake Oral 1140 ml Output Urine Total 2150 ml General: Alert, Oriented X3, Cooperative, No Acute Distress HEENT: Atraumatic, PERRLA, EOMI, Mucous Memb Moist/[place], Other (left labial droop dysarthria mild Decreased peripheral vision) Neck: Supple, No JVD Lungs: Clear to Auscultation Heart: Regular Rate Abdomen: Normal Bowel Sounds, Soft Extremities: No Edema Neuro: Other (Left HP upper weaker then lower limb) Psych/Mental Status: Other (mild slowed cognition) Results Lab Laboratory Tests 03/23/17 06:19: White Blood Count 4.8, Red Blood Count 4.02L, Hemoglobin 12.2, Hematocrit 37, Mean Corpuscular Volume 91, Mean Corpuscular Hemoglobin 30, Mean Corpuscular Hemoglobin Concent 33, Red Cell Distribution Width 13.3, Platelet Count 169, Mean Platelet Volume 9.8, Sodium Level 144, Potassium Level 4.2, Chloride Level 116H, Carbon Dioxide Level 21, Anion Gap 7, Blood Urea Nitrogen 19H, Creatinine 1.01, Estimat Glomerular Filtration Rate 57, BUN/Creatinine Ratio 19, Glucose Level 89, Calcium Level 8.4L, Total Bilirubin 0.2, Aspartate Amino Transf (AST/ SGOT) 24, Alanine Aminotransferase (ALT/SGPT) 33, Alkaline Phosphatase 80, Total Protein 6.3L, Albumin 3.5, Thyroid Stimulating Hormone (TSH) 1.42 Assessment/Plan Assessment Left HP and dysarthria and cognitive impairment felt to be due to conversion disorder as imaging studies done at OSH negative Learning disability Prior spine surgery OSH cervical and Lumbar HTN controlled with meds Hypothyroidism on replacement Plan Continue PT/OT/ST Team Conference held yesterday-See report for full functional update and POC Checked Labs Appreciate Dr sue note. Discharge set tentatively for 03-26-17 to home with family REBEKA ANDERSON MD Mar 24, 2017 09:06
[2017-03-24] MEDS: toPIRamate 100 MG (TOPAMAX) TAB PO SCH ×2 (09:52→20:58)
[2017-03-24] MEDS: ASPIRIN E.C. 325 MG (ECOTRIN) TABLET PO SCH (09:52)
[2017-03-24] MEDS: LORATADINE (CLARITIN) 10 MG TAB PO SCH (09:52)
[2017-03-24] MEDS: amLODIPine 5 MG (NORVASC) TAB PO SCH (09:52)
[2017-03-24] MEDS: DOCUSATE SODIUM 100 MG (COLACE) CAP PO SCH ×2 (09:52→20:59)
[2017-03-24] MEDS: TRIAMCINOLONE 0.1% CR (KENALOG) 15 GM TUBE TOP SCH ×2 (09:53→20:59)
[2017-03-24] MEDS: OXcarbazepine (TRILEPTAL) 300 MG TAB PO SCH ×2 (09:53→20:59)
[2017-03-24] MEDS ORDERED: ATOR40TA PO (10:04)
[2017-03-24] MEDS ORDERED: OXCA600T PO (10:04)
[2017-03-24] MEDS ORDERED: AMLO5TAB2 PO (10:04)
[2017-03-24] MEDS ORDERED: LEVO88TA54 PO (10:04)
[2017-03-24] MEDS ORDERED: ACET325T49 PO (10:04)
[2017-03-24] MEDS ORDERED: TOPI50TA13 PO (10:04)
[2017-03-24] MEDS ORDERED: ALPR0.5T7 PO (10:04)
[2017-03-24] MEDS ORDERED: ASPI325T32 PO (10:04)
--- NOTE | 2017-03-24 10:41 | Occupational Ther Daily Note ---
OT Current Status-Daily Note Subjective Pt sitting in recliner, alert. Pt agreed to therapy. No c/o pain. Mental Status/Objective Patient Orientation: Person, Place, Time, Situation Functional [place] Measure 0=Not Assessed/NA 4=Minimal Assistance 1=Total Assistance 5=Supervision or Setup 2=Maximal Assistance 6=Modified [place] 3=Moderate Assistance 7=Complete [place] ADL-Treatment Functional [place] Measure 0=Not Assessed/NA 4=Minimal Assistance 1=Total Assistance 5=Supervision or Setup 2=Maximal Assistance 6=Modified [place] 3=Moderate Assistance 7=Complete IndependenceIRFPAI Quality Coding Scale 6 Independent with activity with or without an assistive device 5 Patient requires set up or clean up by helper. Patient completes activity by themselves 4 Supervision or touching assist (CGA). [place] provide cues , steadying assist 3 The helper provides less than half the effort to complete the activity 2 The helper provides more than half the effort to complete the activity 1 Dependent. The helper does all the effort to complete an activity 7 Patient refused to complete or attempt activity 9 The patient did not perform the activity before the current illness or injury 88 Not attempted due to Medical conditions or safety concerns Grooming (FIM): 6 (Standing at sink, pt able to complete grooming.) Oral Hygiene (QC): 6 Bathing (FIM): 6 (Using grabbars, shower bench and hand held shower pt able to complete by self.) Bathing Location: L Arm, R Arm, L Upper Leg, R Upper Leg, L Lower Leg ( including foot), R Lower Leg (including foot), Chest, Abdomen, Buttocks, Perineal Area Shower/Bathe Self (QC): 6 Upper Body (FIM): 5 (Pt had clean clothes on prior to shower. Pt doffed clothing then completed shower then donned clothing.) Upper Body Dressing (QC): 5 Lower Body Dressing (FIM): 5 (Pt had clean clothes on prior to shower. Pt doffed clothing then completed shower then donned clothing. ) Lower Body Dressing (QC): 5 On/Off Footwear (QC): 6 MANUFACTURING TECHNOLOGY PROFESSOR took over care of pt. All needs met in room. OT Short Term Goals Short Term Goals Time Frame: Mar 29, 2017 Upper Body Dressing(FIM): 5 Lower Body Dressing(FIM): 5 Toilet/Commode Transfer(FIM): 5 Additional Short Term Goals: 2-Verbalize Understanding, 3-ImproveStrength/Camille 1=Demonstrate adherence to instructed precautions during ADL tasks. 2=Patient will verbalize/demonstrate understanding of assistive devices/ modifications for ADL. 3=Patient will improve strength/tolerance for activity to enable patient to perform ADL's. OT Web Manager Goals Web Manager Goals Time Frame: Apr 12, 2017 Eating (FIM): 6 Eating (QC): 6 Groomin Oral Hygiene (QC): 6 Bathing(FIM): 5 Shower/Bathe Self (QC): 5 Upper Body Dressing(FIM): 6 Upper Body Dressing (QC): 6 Lower Body Dressing(FIM): 6 Lower Body Dressing (QC): 6 On/Off Footwear (QC): 6 Toileting(FIM): 6 Toileting Hygiene (QC): 6 Toilet/Commode Transfer(FIM): 6 Toilet/Commode Transfer (QC): 6 Shower Transfer(FIM): 6 Comprehension(FIM): 5 Expression (FIM): 5 Social Interaction(FIM): 6 Problem Solving(FIM): 6 Memory(FIM): 5 Additional Goals: 2-Verbalize Understanding, 3-ImproveStrength/Camille 1=Demonstrate adherence to instructed precautions during ADL tasks. 2=Patient will verbalize/demonstrate understanding of assistive devices/ modifications for ADL. 3=Patient will improve strength/tolerance for activity to enable patient to perform ADL's. OT Education/Plan Problem List/Assessment Pt demonstrates decreased left side strength, decreased ADL functioning, and mobility. Pt to benefit from skilled OT intervention for ADL training, transfers , strengthening, and home safety education to maximize level of function and allow safe discharge home. Discharge Recommendations Plan/Recommendations: Continue POC Treatment Plan/Plan of Care Patient would benefit from OT for education, treatment and training to promote independence in ADL's, mobility, safety and/or upper extremity function for ADL' s. Plan of Care: ADL Retraining, Functional Mobility, Group Exercise/Act as Ind, UE Funct Exercise/Act Treatment Duration: Apr 12, 2017 Frequency: At least 5 of 7 days/Wk (IRF) Estimated Hrs Per Day: 1.5 hours per day Agreement: Yes Rehab Potential: Fair Time/GCodes Start Time: 08:00 Stop Time: 08:30 Total Time Billed (hr/min): 30 Billed Treatment Time 1 visit-ADL 2 (30 min) MARCELA JARQUIN Mar 24, 2017 10:41
--- NOTE | 2017-03-24 10:43 | Speech Therapy Daily Note ---
Speech Daily Progress Note Subjective Date Seen by Provider: Mar 24, 2017 Time Seen by Provider: 08:30 The patient was seated upright in her recliner for therapy. The patient was agreeable to participation in the cognitive treatment session and denied any questions prior to the onset of the session. Objective The patient reports a large concern with her memory functioning and becomes tearful when memory is discussed. Due to this, today's session focused on external and internal memory strategies. The patient listed a large amount of external memory strategies which she currently utilizes. The patient currently uses a calendar (physical/traditional and phone), daily management planner, alarm reminders , routines, and a pill box. The patient stated she does not incorporate as many internal memory strategies (repetition, visualization) but does use them intermittently. Orientation: The patient remains 100% oriented, independently. Assessment Assessment Current Status: Good Progress Treatment Plan Continue Plan of Care Communication Comprehension: 4 Expression: 4 Social Cognition Social Interaction: 5 Problem Solvin Memory: 4 Speech Short Term Goals Short Term Goals Short Term Goals 1. The patient will display 80% accuracy with oral motor exercises with mild clinician cueing. 2. The patient will recall and demonstrate functional memory strategies with 80 % accuracy and mild clinician cueing. Time Frame-STG: One Week Speech Nursing Home Goals Insulation Cutter And Former Goals 1. The patient will demonstrate improved cognitive linguistic skills for increased function and safety with ADL's. Time Frame: Ten Days Comprehension: 5 Expression: 5 Social Interaction: 6 Problem Solvin Memory: 5 Speech-Plan Treatment Plan Speech Therapy Treatment Plan: Continue Plan of Care Continue skilled speech pathology to target functional memory strategies and improved articulatory precision. Treatment Duration: Apr 02, 2017 Frequency: Modified Program (IRF) Estimated Hrs Per Day: .5 hour per day Rehab Potential: Fair Safety Risks/Education Teaching Recipient: Patient Teaching Methods: Demonstration, Handout, Discussion Response to Teaching: Verbalize Understanding, Return Demonstration Education Topics Provided: External and Internal Memory Strategies Time Speech Therapy Time In: 08:30 Speech Therapy Time Out: 09:00 Total Billed Time: 30 Billed Treatment Time 1DAMON ELIZABETH ST Mar 24, 2017 10:42
--- NOTE | 2017-03-24 12:10 | Physical Therapy Daily Note ---
PT Daily Note-Current Subjective Pt sitting in recliner upon arrival. Pt agrees to PT. Employment Coordinator comes in to visit with pt during tx. Pain Numeric Pain Scale: 0-No Pain Location: No Pain Reported Mental Status Patient Orientation: Person, Place, Time, Situation Transfers Functional [place] Measure 0=Not Assessed/NA 4=Minimal Assistance 1=Total Assistance 5=Supervision or Setup 2=Maximal Assistance 6=Modified [place] 3=Moderate Assistance 7=Complete IndependenceIRFPAI Quality Coding Scale 6 Independent with activity with or without an assistive device 5 Patient requires set up or clean up by helper. Patient completes activity by themselves 4 Supervision or touching assist (CGA). [place] provide cues , steadying assist 3 The helper provides less than half the effort to complete the activity 2 The helper provides more than half the effort to complete the activity 1 Dependent. The helper does all the effort to complete an activity 7 Patient refused to complete or attempt activity 9 The patient did not perform the activity before the current illness or injury 88 Not attempted due to Medical conditions or safety concerns Scootin Sit to/from Stand: 6 Sit to Stand (QC): 6 Weight Bearing Right Lower Extremity: Right Full Weight Bearing Left Lower Extremity: Left Full Weight Bearing Gait Training Does the Patient Walk?: Yes Distance (FIM): 3=150 ft Distance: 400' Walk 10 feet (QC): 6 Walk 50 ft with 2 Turns(QC): 6 Walk 150 ft (QC): 6 Gait Level of Assist: 6 Gait Persons Needed: 1 Gait Assistive Device: Cane Single Point Pt walks using FWW at Mod I to railing in hallway then ambulates using hand rail in R side only at SBA. Pt feels confident in walking and wants to try SPC like she has at home. Pt walks in [facility] including turns using only SPC at Mod I after gaining some confidence. Wheelchair Training Does the Pt Use a Wheelchair?: No Stair Training Stair Training: Handrails/: 2 handrails #of Steps: 8 1 Step (curb) (QC): 5 4 Steps (QC): 5 Stairs: Pattern: Step to Level of Assist: 5 Pt needs VC to sequence stairs. Treatments Pt transfers from recliner using FWW at Mod I. Pt walks using FWW at Mod I to railing in hallway then ambulates using hand rail in R side only at SBA. Pt feels confident in walking and wants to try SPC like she has at home. Pt walks in Therapy Commons including turns using only SPC at Mod I after gaining some confidence. Pt then practiced mobility in room and SENSOR TECHNICIAN made pt Ad carine in room after visiting with KRUEGER & Nurse. Pt rests in recliner at end of tx with all needs met. Assessment Current Status: Good Progress Pt has improved with transfers, mobility and safety & confidence with independence of tasks. PT Short Term Goals Short Term Goals Time Frame: Mar 29, 2017 Gait (FIM): 5 Gait Distance Comment: 200' Gait Level of Assist: 5 Gait Assistive Device: FWW PT Processing Tech Goals Intermediate Goals PT Intermediate Goals Time Frame: Apr 12, 2017 Transfers (B,C,W/C) (FIM): 6 Sit to Lying (QC): 6 Lying-Sitting on Side/Bed(QC): 6 Sit to Stand (QC): 6 Rollin Roll Left to Right (QC): 6 Chair/Asg-mn-Wrvfn Xfer(QC): 6 Car Transfer (QC): 6 Gait (FIM): 6 Distance: 300' Walk 10 feet (QC): 6 Walk 10ft-Uneven Surface(QC): 6 Walk 50ft with 2 Turns (QC): 6 Walk 150 ft (QC): 6 Gait Level of Assist: 6 Gait Assistive Device: FWW Stairs (FIM): 5 # of Steps: 12 1 Step (curb) (QC): 4 4 Steps (QC): 4 12 Steps (QC): 4 Stairs Level Of Assist: 5 Picking up an Object (QC): 4 PT Plan Problem List Problem List: Activity Tolerance Treatment/Plan Treatment Plan: Continue Plan of Care Treatment Plan: Bed Mobility, Education, Functional Activity Camille, Functional Strength, Group Therapy, Gait, Safety, Therapeutic Exercise, Transfers Treatment Duration: Apr 12, 2017 Frequency: At least 5 of 7 days/Wk (IRF) Estimated Hrs Per Day: 1.5 hours per day Patient and/or Family Agrees t: Yes Safety Risks/Education Patient Education: Gait Training, Correct Positioning, Safety Issues Teaching Recipient: Patient Teaching Methods: Discussion Response to Teaching: Verbalize Understanding Time/GCodes Time In: 1000 Time Out: 1045 Total Billed Treatment Time: 45 Total Billed Treatment 1, GT x2 (30m) & FA (15m) EULOGIO KHOURY SENSOR TECHNICIAN Mar 24, 2017 12:10
--- NOTE | 2017-03-24 13:04 | Occupational Ther Daily Note ---
OT Current Status-Daily Note Subjective Pt alert, sitting in recliner. Pt agreed to therapy. No c/o pain. Pt is now up ad carien in room. Mental Status/Objective Patient Orientation: Person, Place, Time, Situation Functional [place] Measure 0=Not Assessed/NA 4=Minimal Assistance 1=Total Assistance 5=Supervision or Setup 2=Maximal Assistance 6=Modified [place] 3=Moderate Assistance 7=Complete [place] ADL-Treatment Functional [place] Measure 0=Not Assessed/NA 4=Minimal Assistance 1=Total Assistance 5=Supervision or Setup 2=Maximal Assistance 6=Modified [place] 3=Moderate Assistance 7=Complete IndependenceIRFPAI Quality Coding Scale 6 Independent with activity with or without an assistive device 5 Patient requires set up or clean up by helper. Patient completes activity by themselves 4 Supervision or touching assist (CGA). Belt provide cues , steadying assist 3 The helper provides less than half the effort to complete the activity 2 The helper provides more than half the effort to complete the activity 1 Dependent. The helper does all the effort to complete an activity 7 Patient refused to complete or attempt activity 9 The patient did not perform the activity before the current illness or injury 88 Not attempted due to Medical conditions or safety concerns Other Treatment Pt ambulated to large shower room with supervision using a cane. Pt then completed a tub transfer by stepping in. Using cane and grabbar pt was able to complete transfer with supervision, no LOB noted. Pt then completed UE gross motor, fine motor strengthening, hand eye coordination and dexterity. Pt demonstrated good sequencing, hand strength and dexterity while completing a 4 step task multiple times. Activity was completed for dressing and daily activities. After therapy, pt went to room and ambulated to bathroom to use toilet. All needs met in room. OT Short Term Goals Short Term Goals Time Frame: Mar 29, 2017 Upper Body Dressing(FIM): 5 Lower Body Dressing(FIM): 5 Toilet/Commode Transfer(FIM): 5 Additional Short Term Goals: 2-Verbalize Understanding, 3-ImproveStrength/[place] 1=Demonstrate adherence to instructed precautions during ADL tasks. 2=Patient will verbalize/demonstrate understanding of assistive devices/ modifications for ADL. 3=Patient will improve strength/tolerance for activity to enable patient to perform ADL's. OT Certified Fire Investigator Goals Certified Fire Investigator Goals Time Frame: Apr 12, 2017 Eating (FIM): 6 Eating (QC): 6 Groomin Oral Hygiene (QC): 6 Bathing(FIM): 5 Shower/Bathe Self (QC): 5 Upper Body Dressing(FIM): 6 Upper Body Dressing (QC): 6 Lower Body Dressing(FIM): 6 Lower Body Dressing (QC): 6 On/Off Footwear (QC): 6 Toileting(FIM): 6 Toileting Hygiene (QC): 6 Toilet/Commode Transfer(FIM): 6 Toilet/Commode Transfer (QC): 6 Shower Transfer(FIM): 6 Comprehension(FIM): 5 Expression (FIM): 5 Social Interaction(FIM): 6 Problem Solving(FIM): 6 Memory(FIM): 5 Additional Goals: 2-Verbalize Understanding, 3-ImproveStrength/[place] 1=Demonstrate adherence to instructed precautions during ADL tasks. 2=Patient will verbalize/demonstrate understanding of assistive devices/ modifications for ADL. 3=Patient will improve strength/tolerance for activity to enable patient to perform ADL's. OT Education/Plan Problem List/Assessment Pt demonstrates decreased left side strength, decreased ADL functioning, and mobility. Pt to benefit from skilled OT intervention for ADL training, transfers , strengthening, and home safety education to maximize level of function and allow safe discharge home. Discharge Recommendations Plan/Recommendations: Continue POC Treatment Plan/Plan of Care Patient would benefit from OT for education, treatment and training to promote independence in ADL's, mobility, safety and/or upper extremity function for ADL' s. Plan of Care: ADL Retraining, Functional Mobility, Group Exercise/Act as Ind, UE Funct Exercise/Act Treatment Duration: Apr 12, 2017 Frequency: At least 5 of 7 days/Wk (IRF) Estimated Hrs Per Day: 1.5 hours per day Agreement: Yes Rehab Potential: Fair Time/GCodes Start Time: 10:45 Stop Time: 12:05 Total Time Billed (hr/min): 80 Billed Treatment Time 1 visit-FA 5 (80 min) MARCELA JARQUIN Mar 24, 2017 13:03
[2017-03-24 18:00] VITALS: BP 113/77
[2017-03-24] MEDS: ATORVASTATIN 40 MG (LIPITOR) TABLET PO SCH (20:58)
[2017-03-25 05:49] VITALS: BP 109/74
[2017-03-25] MEDS: LEVOTHYROXINE 88 MCG (LEVOTHORID) TAB PO SCH (06:21)
[2017-03-25] MEDS: OXcarbazepine (TRILEPTAL) 300 MG TAB PO SCH ×2 (07:56→19:58)
[2017-03-25] MEDS: ASPIRIN E.C. 325 MG (ECOTRIN) TABLET PO SCH (07:56)
[2017-03-25] MEDS: amLODIPine 5 MG (NORVASC) TAB PO SCH (07:56)
[2017-03-25] MEDS: LORATADINE (CLARITIN) 10 MG TAB PO SCH (07:57)
[2017-03-25] MEDS: DOCUSATE SODIUM 100 MG (COLACE) CAP PO SCH ×2 (07:57→19:58)
[2017-03-25] MEDS: toPIRamate 100 MG (TOPAMAX) TAB PO SCH ×2 (07:57→19:58)
[2017-03-25] MEDS: ACETAMINOPHEN 325 MG TABLET/CAPLET (TYLENOL) PO PRN (07:57)
--- NOTE | 2017-03-25 07:57 | Progress Note (SOAP) ---
Subjective Time Seen by Provider: 07:55 Subjective/Events-last exam CVA. Hypertension. Sleep apnea. hypothyroid. Hyperlipidemia. Patient speaking better. patient have headache this morning Patient using a cane to get around Objective Exam Vital Signs Date Time Temp Pulse Resp B/P (MAP) Pulse Ox O2 Delivery O2 Flow Rate FiO2 03/25/17 05:49 98.5 65 17 109/74 (86) 97 Room Air 03/24/17 20:10 Room Air 03/24/17 18:00 98.1 73 18 113/77 (89) 98 Room Air 03/24/17 09:00 Room Air I & O 03/25/17 07:00 Intake Total 1460 ml Output Total 1475 ml Balance -15 ml Capillary Refill : General Appearance: No Apparent Distress, WD/WN HEENT: Normal ENT Inspection Neck: Full Range of Motion, Normal Inspection Respiratory: Lungs Clear, No Accessory Muscle Use, No Respiratory Distress Cardiovascular: Regular Rate, Rhythm, No Murmur Assessment/Plan Assessment/Plan Assess & Plan/Chief Complaint ecent CVA. Past history of CVA. history of hypertension. Hyperlipidemia. Conversion reaction . . CVA. Hypertension history . Hyperlipidemia. Sleep apnea. Hypothyroid. Patient improving Patient voices no complaints . 03/24/17. cVA. Hypertension. Hyperlipidemia. Patient speaking better . 03/25/17. cva. hYPERTENSION. hYPERLIPIDEMIA. Patient speaking better. Clinical Quality Measures DVT/VTE Risk/Contraindication: Risk Factor Score Per Nursin RFS Level Per Nursing on Admit: 4+=Very High NEPTALI SALOMON DO Mar 25, 2017 07:57
[2017-03-25] MEDS: TRIAMCINOLONE 0.1% CR (KENALOG) 15 GM TUBE TOP SCH ×2 (10:07→19:59)
--- NOTE | 2017-03-25 10:58 | Occupational Ther Daily Note ---
OT Current Status-Daily Note Subjective Pt sitting in chair, agrees to treatment. Pt reports 4/10 headache. States it is feeling better after taking medication. Plan is for pt to d/c home tomorrow. Mental Status/Objective Functional [place] Measure 0=Not Assessed/NA 4=Minimal Assistance 1=Total Assistance 5=Supervision or Setup 2=Maximal Assistance 6=Modified [place] 3=Moderate Assistance 7=Complete [place] ADL-Treatment Pt has already retrieved clothing this morning. Gait to restroom with SPC. Pt doffed clothing without assistance. Transfer to walk in shower with modified independence using grab bar. Pt able to wash/dry all areas with modified independence using shower bench and hand held shower. Don bra using modified technique of fastening in the front and then turning it around. Don pullover shirt with modified independence. Pt donned underwear and pants with modified independence. Stood with good balance during pant hike. Pt donned socks and shoes with modified independence. Stood at sink to comb hair with modified independence. Pt states she has already completed oral care this morning without assistance. Pt is up ad carine in room. Pt demonstrated ability to perform toilet transfer with modified independence using grab bar. Pt states she has been getting up to the restroom without assistance and has no difficulty with hygiene or clothing management. Plan is for pt to d/c home tomorrow. Pt has no questions or concerns regarding ADLs or home safety. Pt states spouse will be available to assist as needed. Functional [place] Measure 0=Not Assessed/NA 4=Minimal Assistance 1=Total Assistance 5=Supervision or Setup 2=Maximal Assistance 6=Modified [place] 3=Moderate Assistance 7=Complete IndependenceIRFPAI Quality Coding Scale 6 Independent with activity with or without an assistive device 5 Patient requires set up or clean up by helper. Patient completes activity by themselves 4 Supervision or touching assist (CGA). [place] provide cues , steadying assist 3 The helper provides less than half the effort to complete the activity 2 The helper provides more than half the effort to complete the activity 1 Dependent. The helper does all the effort to complete an activity 7 Patient refused to complete or attempt activity 9 The patient did not perform the activity before the current illness or injury 88 Not attempted due to Medical conditions or safety concerns Eating (FIM): 6 (Pt reports feeding self, cutting food, and managing containers without assistance) Eating (QC): 6 Grooming (FIM): 6 Oral Hygiene (QC): 6 Bathing (FIM): 6 Shower/Bathe Self (QC): 6 Upper Body (FIM): 6 Upper Body Dressing (QC): 6 Lower Body Dressing (FIM): 6 Lower Body Dressing (QC): 6 On/Off Footwear (QC): 6 Toileting (FIM): 6 Toileting Hygiene (QC): 6 Toilet/Commode Transfer (FIM): 6 Toilet Transfer (QC): 6 Shower Transfer(FIM): 6 Other Treatment Pt performed gait to therapy gym with SPC. Slow pace, but no LOB noted. Pt performed bilateral UE exercises to increase strength needed for ADLs and transfers. Pt performed shoulder flexion, forward press, biceps curls, and wrist flex/ext exercises x15 reps with 1# dowel andres. Rest breaks taken between exercises. Pt completed putty activity with left hand to increase strength and manipulation skills. Pt able to remove small beads from putty without difficulty. Arm bike x15 minutes to increase overall strength and activity tolerance needed for functional tasks. Pt performed task with moderate resistance and slow pace. No rest breaks needed. Pt returned to room, sitting in chair with needs met after session. OT Short Term Goals Short Term Goals Time Frame: Mar 29, 2017 Upper Body Dressing(FIM): 5 Lower Body Dressing(FIM): 5 Toilet/Commode Transfer(FIM): 5 Additional Short Term Goals: 2-Verbalize Understanding, 3-ImproveStrength/Camille 1=Demonstrate adherence to instructed precautions during ADL tasks. 2=Patient will verbalize/demonstrate understanding of assistive devices/ modifications for ADL. 3=Patient will improve strength/tolerance for activity to enable patient to perform ADL's. OT Chcf Goals Chcf Goals Time Frame: Apr 12, 2017 Eating (FIM): 6 Eating (QC): 6 Groomin Oral Hygiene (QC): 6 Bathing(FIM): 5 Shower/Bathe Self (QC): 5 Upper Body Dressing(FIM): 6 Upper Body Dressing (QC): 6 Lower Body Dressing(FIM): 6 Lower Body Dressing (QC): 6 On/Off Footwear (QC): 6 Toileting(FIM): 6 Toileting Hygiene (QC): 6 Toilet/Commode Transfer(FIM): 6 Toilet/Commode Transfer (QC): 6 Shower Transfer(FIM): 6 Comprehension(FIM): 5 Expression (FIM): 5 Social Interaction(FIM): 6 Problem Solving(FIM): 6 Memory(FIM): 5 Additional Goals: 2-Verbalize Understanding, 3-ImproveStrength/Camille 1=Demonstrate adherence to instructed precautions during ADL tasks. 2=Patient will verbalize/demonstrate understanding of assistive devices/ modifications for ADL. 3=Patient will improve strength/tolerance for activity to enable patient to perform ADL's. OT Education/Plan Problem List/Assessment Pt demonstrates decreased left side strength, decreased ADL functioning, and mobility. Pt to benefit from skilled OT intervention for ADL training, transfers , strengthening, and home safety education to maximize level of function and allow safe discharge home. Discharge Recommendations Plan/Recommendations: Continue POC Treatment Plan/Plan of Care Patient would benefit from OT for education, treatment and training to promote independence in ADL's, mobility, safety and/or upper extremity function for ADL' s. Plan of Care: ADL Retraining, Functional Mobility, Group Exercise/Act as Ind, UE Funct Exercise/Act Treatment Duration: Apr 12, 2017 Frequency: At least 5 of 7 days/Wk (IRF) Estimated Hrs Per Day: 1.5 hours per day Agreement: Yes Rehab Potential: Fair Time/GCodes Start Time: 09:00 Stop Time: 10:15 Total Time Billed (hr/min): 75 Billed Treatment Time 1 visit, ADLx3(40minutes), EXx2(35minutes) PETER ZACARIAS OT Mar 25, 2017 10:58
--- NOTE | 2017-03-25 10:59 | Speech Therapy Daily Note ---
Speech Daily Progress Note Subjective Date Seen by Provider: Mar 25, 2017 Time Seen by Provider: 08:30 The patient was seated upright in recliner upon entrance. The patient greeted the clinician appropriately and was agreeable to participation in the speech and language therapy session. Objective Intelligibility Strategies: Intelligibility strategies were initiated, discussed , and demonstrated on this date. Strategies included reducing her rate of speech (which was not recommended, as the patient currently speaks at a decreased rate), over-articulating phonemes, reduced distractions, and facing her conversation partner. Oral Motor Exercises: Oral motor exercises were discussed and demonstrated on this date. The patient displayed high accuracy with all exercises with mild clinician verbal prompting an direct modeling. Ten repetitions of each exercise were performed. Assessment Assessment Current Status: Excellent Progress Treatment Plan Continue Plan of Care Communication Comprehension: 6 Expression: 5 Social Cognition Social Interaction: 6 Problem Solvin Memory: 5 Speech Short Term Goals Short Term Goals Short Term Goals 1. The patient will display 80% accuracy with oral motor exercises with mild clinician cueing. 2. The patient will recall and demonstrate functional memory strategies with 80 % accuracy and mild clinician cueing. Time Frame-STG: One Week Speech Retirement Goals Therapeutic Consultant Goals 1. The patient will demonstrate improved cognitive linguistic skills for increased function and safety with ADL's. Time Frame: Ten Days Comprehension: 5 (MET) Expression: 5 (MET) Social Interaction: 6 (MET) Problem Solvin (MET) Memory: 5 (MET) Speech-Plan Treatment Plan Speech Therapy Treatment Plan: Continue Plan of Care Continue skilled speech pathology to target functional memory strategies and improved intelligibility. Treatment Duration: Apr 02, 2017 Frequency: Modified Program (IRF) Estimated Hrs Per Day: .5 hour per day Rehab Potential: Fair Safety Risks/Education Teaching Recipient: Patient Teaching Methods: Demonstration, Handout, Discussion Response to Teaching: Verbalize Understanding Education Topics Provided: Oral Motor Exercises Time Speech Therapy Time In: 08:30 Speech Therapy Time Out: 09:00 Total Billed Time: 30 Billed Treatment Time [address] Mar 25, 2017 10:59
--- NOTE | 2017-03-25 11:02 | Therapy Team Discharge Summary ---
Therapy Discharge Summary Discharge Recommendations Date of Discharge Therapy D/C Recommendations: Home w/ Family Support Occupational Therapy Decreased Activ Tolerance, Decreased UE Strength, Dependent Transfers, Impaired Coordination, Impaired Self-Care Skills Speech-Language Pathology The patient was admitted to [facility] following a suspected CVA. Upon admission, the patient displayed mild cognitive deficits and mild dysarthria. Skilled speech pathology focused on intelligibility strategies, oral motor exercises, functional reading tasks, and functional memory strategies. The patient met all goals throughout her stay. At this time, the patient will discharge home. Outpatient speech pathology is recommended post discharge. PT Retirement Goals Furnace Setter Goals PT Furnace Setter Goals Time Frame: Apr 12, 2017 Transfers (B,C,W/C) (FIM): 6 Roll Left to Right (QC): 6 Sit to Lying (QC): 6 Lying-Sitting on Side/Bed(QC): 6 Sit to Stand (QC): 6 Chair/Exd-od-Jdkxw Xfer(QC): 6 Car Transfer (QC): 6 Gait (FIM): 6 Distance: 300' Walk 10 feet (QC): 6 Walk 10ft-Uneven Surface(QC): 6 Walk 50ft with 2 Turns (QC): 6 Walk 150 ft (QC): 6 Gait Level of Assist: 6 Gait Assistive Device: FWW Stairs (FIM): 5 # of Steps: 12 1 Step (curb) (QC): 4 4 Steps (QC): 4 12 Steps (QC): 4 Stairs Level Of Assist: 5 Picking up an Object (QC): 4 OT Retirement Goals Furnace Setter Goals Time Frame: Apr 12, 2017 Eating (FIM): 6 Eating (QC): 6 Oral Hygiene (QC): 6 Grooming(FIM): 6 Bathing(FIM): 5 Shower/Bathe Self (QC): 5 Upper Body Dressing(FIM): 6 Upper Body Dressing (QC): 6 Lower Body Dressing(FIM): 6 Lower Body Dressing (QC): 6 On/Off Footwear (QC): 6 Toileting(FIM): 6 Toileting Hygiene (QC): 6 Toilet/Commode Transfer(FIM): 6 Toilet/Commode Transfer (QC): 6 Shower Transfer(FIM): 6 Comprehension(FIM): 5 (MET) Expression (FIM): 5 (MET) Social Interaction(FIM): 6 (MET) Problem Solving(FIM): 6 (MET) Memory(FIM): 5 (MET) Additional Goals: 2-Verbalize Understanding, 3-ImproveStrength/Camille 1=Demonstrate adherence to instructed precautions during ADL tasks. 2=Patient will verbalize/demonstrate understanding of assistive devices/ modifications for ADL. 3=Patient will improve strength/tolerance for activity to enable patient to perform ADL's. Speech Furnace Setter Goals Furnace Setter Goals 1. The patient will demonstrate improved cognitive linguistic skills for increased function and safety with ADL's. Time Frame: Ten Days Comprehension: 5 (MET) Expression: 5 (MET) Social Interaction: 6 (MET) Problem Solvin (MET) Memory: 5 (MET) SHERRY CHRISTIANSON Mar 25, 2017 11:02
--- NOTE | 2017-03-25 11:03 | Physical Therapy Daily Note ---
PT Daily Note-Current Subjective Agrees to Rx. Feels she has made significant progress Pain Numeric Pain Scale: 0-No Pain Mental Status Patient Orientation: Normal For Age Transfers Functional [place] Measure 0=Not Assessed/NA 4=Minimal Assistance 1=Total Assistance 5=Supervision or Setup 2=Maximal Assistance 6=Modified [place] 3=Moderate Assistance 7=Complete IndependenceIRFPAI Quality Coding Scale 6 Independent with activity with or without an assistive device 5 Patient requires set up or clean up by helper. Patient completes activity by themselves 4 Supervision or touching assist (CGA). [place] provide cues , steadying assist 3 The helper provides less than half the effort to complete the activity 2 The helper provides more than half the effort to complete the activity 1 Dependent. The helper does all the effort to complete an activity 7 Patient refused to complete or attempt activity 9 The patient did not perform the activity before the current illness or injury 88 Not attempted due to Medical conditions or safety concerns Transfers (B, C, W/C) (FIM): 6 Scootin Rollin Roll Left to Right (QC): 6 Supine to/from Sit: 6 Sit to/from Stand: 6 Sit to Lying (QC): 6 Sit to Stand (QC): 6 Chair/Ilo-xk-Xzdty Xfer(QC): 6 Bed to/from Chair: 6 Car Transfer (QC): 6 Weight Bearing Right Lower Extremity: Right Full Weight Bearing Left Lower Extremity: Left Full Weight Bearing Gait Training Does the Patient Walk?: Yes Gait (FIM): 6 Distance (FIM): 3=150 ft (175x2) Walk 10 feet (QC): 6 Walk 50 ft with 2 Turns(QC): 6 Walk 150 ft (QC): 6 Walking 10ft/uneven surface-QC: 6 Gait Level of Assist: 6 Gait Persons Needed: 0 Gait Assistive Device: Cane Single Point Wheelchair Training Does the Pt Use a Wheelchair?: No Stair Training Stair Training: Handrails/: 2 handrails Stairs (FIM): 5 #of Steps: 12 1 Step (curb) (QC): 5 4 Steps (QC): 5 12 Steps (QC): 5 Stairs: Pattern: Step to Level of Assist: 5 Balance Picking up an Object (QC): 5 Exercises Supine Ex: Bridging, Ankle pumps, Quad Set, Rolling, Glut sets, Heel Slides, Short Arc Quads, Scooting, Straight leg raise, Hip abd/add Supine Reps: 15 NuStep Minutes: 10 NuStep Workload: 4 Treatments leg presses at Nustep x 15 reps Assessment Current Status: Good Progress goals met PT Short Term Goals Short Term Goals Time Frame: Mar 29, 2017 Gait (FIM): 5 Gait Distance Comment: 200' Gait Level of Assist: 5 Gait Assistive Device: FWW PT Blocker Polishing Goals Prison Goals PT Blocker Polishing Goals Time Frame: Apr 12, 2017 Transfers (B,C,W/C) (FIM): 6 Sit to Lying (QC): 6 Lying-Sitting on Side/Bed(QC): 6 Sit to Stand (QC): 6 Rollin Roll Left to Right (QC): 6 Chair/Ave-vd-Ompjw Xfer(QC): 6 Car Transfer (QC): 6 Gait (FIM): 6 Distance: 300' Walk 10 feet (QC): 6 Walk 10ft-Uneven Surface(QC): 6 Walk 50ft with 2 Turns (QC): 6 Walk 150 ft (QC): 6 Gait Level of Assist: 6 Gait Assistive Device: FWW Stairs (FIM): 5 # of Steps: 12 1 Step (curb) (QC): 4 4 Steps (QC): 4 12 Steps (QC): 4 Stairs Level Of Assist: 5 Picking up an Object (QC): 4 PT Plan Treatment/Plan Treatment Plan: Continue Plan of Care Treatment Plan: Bed Mobility, Education, Functional Activity Camille, Functional Strength, Group Therapy, Gait, Safety, Therapeutic Exercise, Transfers Treatment Duration: Apr 12, 2017 Frequency: At least 5 of 7 days/Wk (IRF) Estimated Hrs Per Day: 1.5 hours per day Patient and/or Family Agrees t: Yes Safety Risks/Education Patient Education: Gait Training, Transfer Techniques, Steps, Correct Positioning, Disease Process, Safety Issues Teaching Recipient: Patient Teaching Methods: Demonstration, Discussion Response to Teaching: Verbalize Understanding, Return Demonstration Time/GCodes Time In: 1000 Time Out: 1100 Total Billed Treatment Time: 60 Total Billed Treatment 1,GT20m,FA25m,EX15m G Codes Necessary: FATMATA Yun PAPER [place] MACHINE OPERATOR Mar 25, 2017 11:03
--- NOTE | 2017-03-25 14:28 | Physical Therapy Daily Note ---
PT Daily Note-Current Subjective Pt. agrees to Rx. Pain Numeric Pain Scale: 0-No Pain Mental Status Patient Orientation: Normal For Age Transfers Functional [place] Measure 0=Not Assessed/NA 4=Minimal Assistance 1=Total Assistance 5=Supervision or Setup 2=Maximal Assistance 6=Modified [place] 3=Moderate Assistance 7=Complete IndependenceIRFPAI Quality Coding Scale 6 Independent with activity with or without an assistive device 5 Patient requires set up or clean up by helper. Patient completes activity by themselves 4 Supervision or touching assist (CGA). [place] provide cues , steadying assist 3 The helper provides less than half the effort to complete the activity 2 The helper provides more than half the effort to complete the activity 1 Dependent. The helper does all the effort to complete an activity 7 Patient refused to complete or attempt activity 9 The patient did not perform the activity before the current illness or injury 88 Not attempted due to Medical conditions or safety concerns all TRFs mod I Weight Bearing Right Lower Extremity: Right Full Weight Bearing Left Lower Extremity: Left Full Weight Bearing Gait Training Gait Assistive Device: Cane Single Point 200ft slow, SPC SBA to mod I, no shay LOB Stair Training pt. shared photo of home stair step situation. This was simulated in gym at steps as best could be...2 steps with one rail on right side and cane in left hand...done well with no LOB and good sequence Assessment Current Status: Good Progress meets goals PT Short Term Goals Short Term Goals Time Frame: Mar 29, 2017 Gait (FIM): 5 Gait Distance Comment: 200' Gait Level of Assist: 5 Gait Assistive Device: FWW PT Office Support Assistant Goals Longterm Goals PT Longterm Goals Time Frame: Apr 12, 2017 Transfers (B,C,W/C) (FIM): 6 Sit to Lying (QC): 6 Lying-Sitting on Side/Bed(QC): 6 Sit to Stand (QC): 6 Rollin Roll Left to Right (QC): 6 Chair/Nlc-ep-Kcucl Xfer(QC): 6 Car Transfer (QC): 6 Gait (FIM): 6 Distance: 300' Walk 10 feet (QC): 6 Walk 10ft-Uneven Surface(QC): 6 Walk 50ft with 2 Turns (QC): 6 Walk 150 ft (QC): 6 Gait Level of Assist: 6 Gait Assistive Device: FWW Stairs (FIM): 5 # of Steps: 12 1 Step (curb) (QC): 4 4 Steps (QC): 4 12 Steps (QC): 4 Stairs Level Of Assist: 5 Picking up an Object (QC): 4 PT Plan Treatment/Plan Treatment Plan: Continue Plan of Care Treatment Plan: Bed Mobility, Education, Functional Activity Cam[place], Functional Strength, Group Therapy, Gait, Safety, Therapeutic Exercise, Transfers Treatment Duration: Apr 12, 2017 Frequency: At least 5 of 7 days/Wk (IRF) Estimated Hrs Per Day: 1.5 hours per day Patient and/or Family Agrees t: Yes Safety Risks/Education Patient Education: Gait Training, Transfer Techniques, Steps Teaching Recipient: Patient Teaching Methods: Demonstration, Discussion Response to Teaching: Verbalize Understanding, Return Demonstration Time/GCodes Time In: 1350 Time Out: 1420 Total Billed Treatment Time: 30 Total Billed Treatment 1,FA30m G Codes Necessary: FATMATA Yun WALL COVERING CONTRACTOR Mar 25, 2017 14:28
[2017-03-25 18:31] VITALS: BP 124/88
[2017-03-25] MEDS: ATORVASTATIN 40 MG (LIPITOR) TABLET PO SCH (19:58)
[2017-03-26 05:04] VITALS: BP 116/70
[2017-03-26] MEDS: LEVOTHYROXINE 88 MCG (LEVOTHORID) TAB PO SCH (05:36)
[2017-03-26] MEDS: amLODIPine 5 MG (NORVASC) TAB PO SCH (08:27)
[2017-03-26] MEDS: ASPIRIN E.C. 325 MG (ECOTRIN) TABLET PO SCH (08:27)
[2017-03-26] MEDS: OXcarbazepine (TRILEPTAL) 300 MG TAB PO SCH (08:27)
[2017-03-26] MEDS: LORATADINE (CLARITIN) 10 MG TAB PO SCH (08:27)
[2017-03-26] MEDS: TRIAMCINOLONE 0.1% CR (KENALOG) 15 GM TUBE TOP SCH (08:27)
[2017-03-26] MEDS: toPIRamate 100 MG (TOPAMAX) TAB PO SCH (08:27)
[2017-03-26] MEDS: DOCUSATE SODIUM 100 MG (COLACE) CAP PO SCH (08:28)
--- NOTE | 2017-03-26 08:53 | Therapy Team Discharge Summary ---
Therapy Discharge Summary Discharge Recommendations Date of Discharge Therapy D/C Recommendations: Home w/ Family Support Physical Therapy Patient came to rehab with left sided weakness and difficulty walking. Upon admission patient performed bed mobility with SBA, transfers with CGA, car transfer with CGA, ambulated 150' with a rolling walker with CGA, including 50' with at least 2 turns of 90 degrees and 10' over an uneven surface, and could go up and down 4 steps using 2 handrails with CGA. Patient has been performing bed mobility and transfer training, balance and endurance training, functional strengthening, stair training, gait training, and education. Patient has made good progress and has met all of her penitent[facility] goals except for distance of ambulation. Now, patient performs bed mobility and transfers with mod I, car transfer with mod I, ambulates 175' with a single point cane with mod I ( including 50' with at least 2 turns of 90 degrees and 10' over an uneven surface ), can sampler pickup and object from the floor with standby assist, and can go up and down 12 steps using 2 handrails with SBA. Patient is discharging from this facility today and will be discharged from PT at this time. Occupational Therapy Decreased Activ Tolerance, Decreased UE Strength, Dependent Transfers, Impaired Coordination, Impaired Self-Care Skills PT Retirement Goals Marine Steward Goals PT Marine Steward Goals Time Frame: Apr 12, 2017 Transfers (B,C,W/C) (FIM): 6 Roll Left to Right (QC): 6 Sit to Lying (QC): 6 Lying-Sitting on Side/Bed(QC): 6 Sit to Stand (QC): 6 Chair/Jzz-dv-Wygls Xfer(QC): 6 Car Transfer (QC): 6 Gait (FIM): 6 Distance: 300' Walk 10 feet (QC): 6 Walk 10ft-Uneven Surface(QC): 6 Walk 50ft with 2 Turns (QC): 6 Walk 150 ft (QC): 6 Gait Level of Assist: 6 Gait Assistive Device: FWW Stairs (FIM): 5 # of Steps: 12 1 Step (curb) (QC): 4 4 Steps (QC): 4 12 Steps (QC): 4 Stairs Level Of Assist: 5 Picking up an Object (QC): 4 OT Retirement Goals Marine Steward Goals Time Frame: Apr 12, 2017 Eating (FIM): 6 Eating (QC): 6 Oral Hygiene (QC): 6 Grooming(FIM): 6 Bathing(FIM): 5 Shower/Bathe Self (QC): 5 Upper Body Dressing(FIM): 6 Upper Body Dressing (QC): 6 Lower Body Dressing(FIM): 6 Lower Body Dressing (QC): 6 On/Off Footwear (QC): 6 Toileting(FIM): 6 Toileting Hygiene (QC): 6 Toilet/Commode Transfer(FIM): 6 Toilet/Commode Transfer (QC): 6 Shower Transfer(FIM): 6 Comprehension(FIM): 5 (MET) Expression (FIM): 5 (MET) Social Interaction(FIM): 6 (MET) Problem Solving(FIM): 6 (MET) Memory(FIM): 5 (MET) Additional Goals: 2-Verbalize Understanding, 3-ImproveStrength/Camille 1=Demonstrate adherence to instructed precautions during ADL tasks. 2=Patient will verbalize/demonstrate understanding of assistive devices/ modifications for ADL. 3=Patient will improve strength/tolerance for activity to enable patient to perform ADL's. Speech Marine Steward Goals Marine Steward Goals 1. The patient will demonstrate improved cognitive linguistic skills for increased function and safety with ADL's. Time Frame: Ten Days Comprehension: 5 (MET) Expression: 5 (MET) Social Interaction: 6 (MET) Problem Solvin (MET) Memory: 5 (MET) AZAEL LOPEZ PT Mar 26, 2017 08:53
[2017-03-26 12:50] VITALS: BP 121/69
--- NOTE | 2017-03-29 12:09 | Therapy Team Discharge Summary ---
Therapy Discharge Summary Discharge Recommendations Date of Discharge Mar 26, 2017 at 12:50 Therapy D/C Recommendations: Home w/ Family Support Occupational Therapy Pt admitted to ARU with left sided weakness. On admission pt required CGA for transfers and minimal assistance for dressing and bathing. Skilled OT intervention focused on ADL training, transfers, strengthening, and safety education. Pt made good progress with therapy and by discharge was completing basic ADLs and transfers with modified independence. Pt met all OT LTG. Pt discharged home with spouse. D/C ARU OT. PT Senior Living Goals Critical Care Cns Goals PT Critical Care Cns Goals Time Frame: Apr 12, 2017 Transfers (B,C,W/C) (FIM): 6 Roll Left to Right (QC): 6 Sit to Lying (QC): 6 Lying-Sitting on Side/Bed(QC): 6 Sit to Stand (QC): 6 Chair/Lpa-lu-Jfmld Xfer(QC): 6 Car Transfer (QC): 6 Gait (FIM): 6 Distance: 300' Walk 10 feet (QC): 6 Walk 10ft-Uneven Surface(QC): 6 Walk 50ft with 2 Turns (QC): 6 Walk 150 ft (QC): 6 Gait Level of Assist: 6 Gait Assistive Device: FWW Stairs (FIM): 5 # of Steps: 12 1 Step (curb) (QC): 4 4 Steps (QC): 4 12 Steps (QC): 4 Stairs Level Of Assist: 5 Picking up an Object (QC): 4 OT Senior Living Goals Senior Living Goals Time Frame: Apr 12, 2017 Eating (FIM): 6 Eating (QC): 6 Oral Hygiene (QC): 6 Grooming(FIM): 6 Bathing(FIM): 5 Shower/Bathe Self (QC): 5 Upper Body Dressing(FIM): 6 Upper Body Dressing (QC): 6 Lower Body Dressing(FIM): 6 Lower Body Dressing (QC): 6 On/Off Footwear (QC): 6 Toileting(FIM): 6 Toileting Hygiene (QC): 6 Toilet/Commode Transfer(FIM): 6 Toilet/Commode Transfer (QC): 6 Shower Transfer(FIM): 6 Comprehension(FIM): 5 (MET) Expression (FIM): 5 (MET) Social Interaction(FIM): 6 (MET) Problem Solving(FIM): 6 (MET) Memory(FIM): 5 (MET) Additional Goals: 2-Verbalize Understanding, 3-ImproveStrength/Camille 1=Demonstrate adherence to instructed precautions during ADL tasks. 2=Patient will verbalize/demonstrate understanding of assistive devices/ modifications for ADL. 3=Patient will improve strength/tolerance for activity to enable patient to perform ADL's. Speech Senior Living Goals Senior Living Goals 1. The patient will demonstrate improved cognitive linguistic skills for increased function and safety with ADL's. Time Frame: Ten Days Comprehension: 5 (MET) Expression: 5 (MET) Social Interaction: 6 (MET) Problem Solvin (MET) Memory: 5 (MET) PETER ZACARIAS OT Mar 29, 2017 12:09
== END 2017-03-26 12:50 | disposition home or self-care (01) | DRG 880 ==
PROVIDERS: ADMIT Physical Medicine & Rehabilitation; ATTEND Physical Medicine & Rehabilitation
DX: F44.4 Conversion disorder with motor symptom or deficit (principal); G81.94 Hemiplegia, unspecified affecting left nondominant side; R47.1 Dysarthria and anarthria; R47.81 Slurred speech; R29.810 Facial weakness; I69.354 Hemiplegia and hemiparesis following cerebral infarction affecting left non-dominant side; I11.0 Hypertensive heart disease with heart failure; I50.9 Heart failure, unspecified; F31.9 Bipolar disorder, unspecified; F81.9 Developmental disorder of scholastic skills, unspecified; I27.20 Pulmonary hypertension, unspecified; E03.9 Hypothyroidism, unspecified; G47.30 Sleep apnea, unspecified; E78.5 Hyperlipidemia, unspecified; Z85.528 Personal history of other malignant neoplasm of kidney
CPT/HCPCS: 36415; 80053; 84443; 85027